=== PATIENT | male | born 1995 | race Caucasian/White ===

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

== ENCOUNTER 2017-02-06 16:20 | Emergency (ER) | payer OTHER ==
[2017-02-06 16:34] LABS: Glucose,Whole Blood 172 mg/dL (75-99)
[2017-02-06 16:36] VITALS: RESP 18
[2017-02-06] MEDS ORDERED: SODIUM CHLORIDE 0.9% 1,000 ML IV STA (17:01)
--- NOTE | 2017-02-06 17:06 | ED ---
Recheck HPI - General Chief Complaint: Recheck/Abnormal Lab/Rx Stated Complaint: Dizziness/Headache/Diabetic Time Seen by Provider: 02/06/17 16:55 Source: patient, RN notes reviewed Mode of arrival: ambulatory Limitations: no limitations - History of Present Illness Initial Comments: This is a 21-year-old insulin-dependent diabetic male who presents emergency department complaining of dizziness, lightheadedness, and jitteriness. Patient states that he also had some chest burning. Patient states he ate leftover prostate about 2:00 and then took his blood sugar and it was 249. He states he then started feeling dizzy and lightheaded. Patient states that he had a burning sensation in his chest. He denied any cough or fever. No current chest pain. Patient states he does feel jittery. Patient denies any skin rashes or lesions. No problems with bowel movements. Patient states he did have dark urine but is been urinating okay. No vomiting. No abdominal pain. Patient states that he has been having problems with DKA. He states he has admitted the hospital last month for DKA. 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 Patient states he takes Humalog, 6 units after each meal as well as Lantus. Patient states that he did take his Humalog 6 after lunch. - Related Data Home Medications Medication Instructions Recorded Confirmed INSULIN LISPRO (humaLOG) [humaLOG See Protocol SQ PC-TID 10/26/16 02/06/17 (formulary)] Previous Rx's Medication Instructions Recorded INSULIN LISPRO (humaLOG) [humaLOG 7 unit SQ AC-TID #1 10/28/16 (formulary)] Insulin Glargine [Lantus] 22 unit SQ HS #6 vial 10/28/16 Allergies Allergy/AdvReac Type Severity Reaction Status Date / Time No Known Allergies Allergy Verified 02/06/17 17:24 Review of Systems ROS Statement: Those systems with pertinent positive or pertinent negative responses have been documented in the HPI. ROS Other: All systems not noted in ROS Statement are negative. Past Medical History Past Medical History: Diabetes Mellitus Additional Past Medical History / Comment(s): Asthma outgrown by age 9, diabetes diagnosed 2.5 yrs ago October 2013;oral motor apraxia;. psoriasis, previous suicidal attempts (08/2014, 03/2015); anxiety/depression, previous hospital physicians for DKA, he may have also possibly an underlying diabetic gastroparesis. History of Any Multi-Drug Resistant Organisms: None Reported Past Surgical History: Adenoidectomy Additional Past Surgical History / Comment(s): 2002 Past Anesthesia/Blood Transfusion Reactions: No Reported Reaction Past Psychological History: Anxiety, Depression Smoking Status: Light tobacco smoker Past Alcohol Use History: None Reported Past Drug Use History: None Reported - Past Family History Mother Family Medical History: No Reported History Father Family Medical History: Hyperlipidemia, Hypertension Additional Family Medical History / Comment(s): . General Exam - General Exam Comments Initial Comments: This is a thin-appearing 21-year-old male who is in mild distress and appears to be mildly anxious. Limitations: no limitations General appearance: alert, anxious Head exam: Present: atraumatic, normocephalic, normal inspection Eye exam: Present: normal appearance, PERRL, EOMI. Absent: scleral icterus, conjunctival injection, periorbital swelling ENT exam: Present: normal exam, normal oropharynx, mucous membranes moist, TM's normal bilaterally, normal external ear exam, other (Moist mucous membranes) Neck exam: Present: normal inspection, full ROM. Absent: tenderness, meningismus, lymphadenopathy Respiratory exam: Present: normal lung sounds bilaterally. Absent: respiratory distress, wheezes, rales, rhonchi, stridor Cardiovascular Exam: Present: normal rhythm, tachycardia (108), normal heart sounds. Absent: systolic murmur, diastolic murmur, rubs, gallop, clicks GI/Abdominal exam: Present: soft, normal bowel sounds. Absent: distended, tenderness, guarding, rebound, rigid Extremities exam: Present: normal inspection, full ROM, normal capillary refill. Absent: tenderness, pedal edema, joint swelling, calf tenderness Back exam: Present: normal inspection Neurological exam: Present: alert, oriented X3, CN II-XII intact Psychiatric exam: Present: normal affect, normal mood Skin exam: Present: warm, dry, intact, normal color. Absent: rash Course Vital Signs 02/06/17 16:34 Temperature 98.1 F Pulse Rate 112 H Respiratory 18 Rate Blood Pressure 118/85 O2 Sat by Pulse 98 Oximetry - Reevaluation(s) Reevaluation #1: 02/06/17 18:26 Patient reevaluated, patient resting comfortably in bed. Patient no acute distress. Reevaluation #2: 02/06/17 18:57 Patient reevaluated and is resting comfortably in bed, no evidence of infectious process, no evidence of toxicity or significant illness Medical Decision Making - Medical Decision Making 21-year-old diabetic male who does not appear to be overtly ill. Patient does not appear to be toxic. Patient has moist mucous membranes. No abdominal tenderness. Bilateral breath sounds are normal. No evidence of infectious process. Blood sugar was 249 after lunch. Patient states she became lightheaded and jittery. Patient had some burning in his chest which has resolved. Return and follow-up parameters discussed. Patient told to return immediately if symptoms worsen. - Differential Diagnosis Patient's workup shows no evidence of diabetic ketoacidosis - Lab Data Result diagrams: 02/06/17 17:10 02/06/17 17:10 Lab Results 02/06/17 02/06/17 02/06/17 Range/Units 16:32 17:10 17:10 WBC (4.0-11.0) k/uL RBC (4.30-5.90) m/uL Hgb (13.0-17.5) gm/dL Hct (39.0-53.0) % MCV (80.0-100.0) fL MCH (25.0-35.0) pg MCHC (31.0-37.0) g/dL RDW (11.5-15.5) % Plt Count (150-450) k/uL Neutrophils % % Lymphocytes % % Monocytes % % Eosinophils % % Basophils % % Neutrophils # (1.3-7.7) k/uL Lymphocytes # (1.0-4.8) k/uL Monocytes # (0-1.0) k/uL Eosinophils # (0-0.7) k/uL Basophils # (0-0.2) k/uL Hyperchromasia VBG pH (7.31-7.41) VBG pCO2 (37-51) mmHg VBG HCO3 (24-28) mmol/L Sodium 136 L (137-145) mmol/L Potassium 3.5 (3.5-5.1) mmol/L Chloride 100 (98-107) mmol/L Carbon Dioxide 23 (22-30) mmol/L Anion Gap 13 mmol/L BUN 15 (9-20) mg/dL Creatinine 0.63 L (0.66-1.25) mg/dL Est GFR (MDRD) Af Amer >60 (>60 ml/min/1.73 sqM) Est GFR (MDRD) Non-Af >60 (>60 ml/min/1.73 sqM) Glucose 167 H (74-99) mg/dL POC Glucose (mg/dL) 172 H 162 H (75-99) mg/dL POC Glu Associate Research Scientist Luiz Anne Andrew Calcium 9.9 (8.4-10.2) mg/dL Total Bilirubin 0.7 (0.2-1.3) mg/dL AST 14 L (17-59) U/L ALT 24 (21-72) U/L Alkaline Phosphatase 81 (38-126) U/L Troponin I (0.000-0.034) ng/mL Total Protein 7.0 (6.3-8.2) g/dL Albumin 4.6 (3.5-5.0) g/dL Amylase 68 (30-110) U/L Lipase 281 (23-300) U/L Acetone, Qual Negative (Negative) 02/06/17 02/06/17 02/06/17 Range/Units 17:10 17:10 18:29 WBC 9.3 (4.0-11.0) k/uL RBC 4.91 (4.30-5.90) m/uL Hgb 16.4 (13.0-17.5) gm/dL Hct 44.8 (39.0-53.0) % MCV 91.2 (80.0-100.0) fL MCH 33.4 (25.0-35.0) pg MCHC 36.6 (31.0-37.0) g/dL RDW 12.7 (11.5-15.5) % Plt Count 364 (150-450) k/uL Neutrophils % 44 % Lymphocytes % 44 % Monocytes % 7 % Eosinophils % 1 % Basophils % 1 % Neutrophils # 4.1 (1.3-7.7) k/uL Lymphocytes # 4.1 (1.0-4.8) k/uL Monocytes # 0.7 (0-1.0) k/uL Eosinophils # 0.1 (0-0.7) k/uL Basophils # 0.1 (0-0.2) k/uL Hyperchromasia Slight VBG pH 7.36 (7.31-7.41) VBG pCO2 54 H (37-51) mmHg VBG HCO3 29 H (24-28) mmol/L Sodium (137-145) mmol/L Potassium (3.5-5.1) mmol/L Chloride (98-107) mmol/L Carbon Dioxide (22-30) mmol/L Anion Gap mmol/L BUN (9-20) mg/dL Creatinine (0.66-1.25) mg/dL Est GFR (MDRD) Af Amer (>60 ml/min/1.73 sqM) Est GFR (MDRD) Non-Af (>60 ml/min/1.73 sqM) Glucose (74-99) mg/dL POC Glucose (mg/dL) (75-99) mg/dL POC Glu Associate Research Scientist ID Calcium (8.4-10.2) mg/dL Total Bilirubin (0.2-1.3) mg/dL AST (17-59) U/L ALT (21-72) U/L Alkaline Phosphatase (38-126) U/L Troponin I <0.012 (0.000-0.034) ng/mL Total Protein (6.3-8.2) g/dL Albumin (3.5-5.0) g/dL Amylase (30-110) U/L Lipase (23-300) U/L Acetone, Qual (Negative) - EKG Data EKG shows normal: sinus rhythm, intervals, QRS complexes, ST-T waves Rate: normal (Right axis deviation) - Radiology Data Radiology results: report reviewed, image reviewed Negative for acute process Disposition Clinical Impression: Hyperglycemia, Anxiety Disposition: HOME SELF-CARE Condition: Good Instructions: Diabetic Hyperglycemia (ED), Anxiety (ED) Additional Instructions: Call tomorrow morning for follow-up appointment with your regular physician.Return to the ER at once if the symptoms worsen or problems or difficulties arise. Referrals: Wilver Vincent MD [Primary Care Provider] - 1-2 days Time of Disposition: 18:57
[2017-02-06 17:13] LABS: Glucose,Whole Blood 162 mg/dL (75-99)
[2017-02-06 17:31] LABS: Basophils # (A) 0.1 k/uL (0-0.2); Basophils % (A) 1 %; CH 34.6; Eosinophils # (A) 0.1 k/uL (0-0.7); Eosinophils % (A) 1 %; HCT 44.8 % (39.0-53.0); HDW 2.72; HGB 16.4 gm/dL (13.0-17.5); Hyperchromasia Slight; Luc # (Auto) 0.27; Luc % (Auto) 3; Lymphocytes # (A) 4.1 k/uL (1.0-4.8); Lymphocytes % (A) 44 %; MCH 33.4 pg (25.0-35.0); MCHC 36.6 g/dL (31.0-37.0); MCV 91.2 fL (80.0-100.0); Mean Platelet Volume 6.3; Monocytes # (A) 0.7 k/uL (0-1.0); Monocytes % (A) 7 %; Neutrophils # (A) 4.1 k/uL (1.3-7.7); Neutrophils % (A) 44 %; RBC 4.91 m/uL (4.30-5.90); RDW 12.7 % (11.5-15.5); WBC 9.3 k/uL (4.0-11.0); WBC (Perox) 9.05
[2017-02-06 17:41] LABS: ALT 24 U/L (21-72); AST 14 U/L (17-59); Alkaline Phosphatase 81 U/L (38-126); Amylase 68 U/L (30-110); Anion Gap 13 mmol/L; Blood Urea Nitrogen 15 mg/dL (9-20); Calcium 9.9 mg/dL (8.4-10.2); Carbon Dioxide 23 mmol/L (22-30); Chloride 100 mmol/L (98-107); Glucose 167 mg/dL (74-99); Non-African American GFR(MDRD) >60 (>60 ml/min/1.73 sqM); Potassium 3.5 mmol/L (3.5-5.1); Sodium 136 mmol/L (137-145); Total Bilirubin 0.7 mg/dL (0.2-1.3)
--- NOTE | 2017-02-06 18:16 | XR ---
EXAMINATION TYPE: XR chest 1V portable DATE OF EXAM: 02/06/2017 COMPARISON: 01/04/2017 HISTORY: Abdominal pain TECHNIQUE: Single frontal view of the chest is obtained. FINDINGS: Heart and mediastinum are normal. Lungs are clear. Diaphragm is normal. Bony thorax appear s normal. IMPRESSION: Normal chest. No change.
[2017-02-06 18:45] LABS: VBG PH 7.36 (7.31-7.41)
[2017-02-06 18:54] LABS: Amorphous Sediment,Urine Moderate /hpf; Appearance,Urine Turbid (Clear); Bilirubin,Urine Negative (Negative); Glucose,Urine (UA) 4+ (Negative); Ketones,Urine Negative (Negative); Leukocyte Esterase,Urine Negative (Negative); Nitrite,Urine Negative (Negative); PH, Urine 7.5 (5.0-8.0); Particle Count 8558; Protein,Urine Trace (Negative); UA Billing (MACRO vs. MICRO) MICRO; Urobilinogen,Urine <2.0 mg/dL (<2.0)
[2017-02-06 19:11] VITALS: BP 117/77; PULSE 76; TEMP 98.4
== END 2017-02-06 19:11 | disposition home or self-care (01) ==
LOC: EC 16:20
DX: E11.65 Type 2 diabetes mellitus with hyperglycemia (principal); F41.9 Anxiety disorder, unspecified; R42 Dizziness and giddiness; F17.200 Nicotine dependence, unspecified, uncomplicated; Z79.4 Long term (current) use of insulin
CPT/HCPCS: 36415; 71010; 80053; 81001; 82009; 82150; 82803; 83690; 84484; 85025; 93005; 96360; 99284

== ENCOUNTER 2017-03-11 14:15 | Inpatient (IN) | payer OTHER ==
[2017-03-11] MEDS ORDERED: SODIUM CHLORIDE 0.9% 2,000 ML IV STA (14:42)
--- NOTE | 2017-03-11 14:44 | ED ---
General Adult HPI - General Chief complaint: Psychiatric Symptoms Stated complaint: mental health Time Seen by Provider: 03/11/17 14:29 Source: patient Mode of arrival: ambulatory Limitations: no limitations - History of Present Illness Initial comments: There is a 21-year-old insulin-dependent type 1 diabetic male who presents to the emergency department for evaluation of suicidal thoughts. Reports over the past couple weeks is been having thoughts of suicide, he denies any specific plan. He states that he felt that he should come to the hospital reevaluated for his suicidal thoughts before he began developing homicidal thoughts. Arrival was noted that Raul was very tachycardic, I asked him if he has been compliant with his insulin. States that he has not been eating much so he has not been taking his in sling. He does report taking his nighttime long-acting insulin. He has not been checking his blood glucose or covered himself with a sliding scale of insulin. Raul reports that he was last in DKA approximately 2 months ago. - Related Data Home Medications Medication Instructions Recorded Confirmed INSULIN LISPRO (humaLOG) [humaLOG See Protocol SQ PC-TID 10/26/16 03/11/17 (formulary)] Previous Rx's Medication Instructions Recorded Insulin Glargine [Lantus] 22 unit SQ HS #6 vial 10/28/16 Allergies Allergy/AdvReac Type Severity Reaction Status Date / Time No Known Allergies Allergy Verified 03/11/17 14:46 Review of Systems ROS Statement: Those systems with pertinent positive or pertinent negative responses have been documented in the HPI. ROS Other: All systems not noted in ROS Statement are negative. Constitutional: Denies: fever, chills Eyes: Denies: vision change ENT: Denies: throat pain Respiratory: Denies: cough, dyspnea Cardiovascular: Reports: palpitations. Denies: chest pain Endocrine: Reports: polyuria Gastrointestinal: Denies: abdominal pain, nausea, vomiting Genitourinary: Denies: urgency, dysuria Musculoskeletal: Denies: back pain Skin: Denies: rash, lesions Neurological: Denies: headache, weakness Psychiatric: Reports: depression, suicidal thoughts Hematological/Lymphatic: Denies: easy bleeding, easy bruising Past Medical History Past Medical History: Diabetes Mellitus Additional Past Medical History / Comment(s): Asthma outgrown by age 9, diabetes diagnosed 2.5 yrs ago October 2013;oral motor apraxia;. psoriasis, previous suicidal attempts (08/2014, 03/2015); anxiety/depression, previous hospital physicians for DKA, he may have also possibly an underlying diabetic gastroparesis. History of Any Multi-Drug Resistant Organisms: None Reported Past Surgical History: Adenoidectomy Additional Past Surgical History / Comment(s): 2002 Past Anesthesia/Blood Transfusion Reactions: No Reported Reaction Past Psychological History: Anxiety, Depression Smoking Status: Current some day smoker Past Alcohol Use History: None Reported Past Drug Use History: None Reported - Past Family History Mother Family Medical History: No Reported History Father Family Medical History: Hyperlipidemia, Hypertension Additional Family Medical History / Comment(s): . General Exam Limitations: no limitations General appearance: alert, in no apparent distress Head exam: Present: atraumatic, normocephalic Eye exam: Present: normal appearance, PERRL ENT exam: Present: mucous membranes dry Neck exam: Present: normal inspection. Absent: meningismus Respiratory exam: Present: normal lung sounds bilaterally. Absent: respiratory distress Cardiovascular Exam: Present: regular rate, tachycardia GI/Abdominal exam: Present: soft. Absent: distended Rectal exam: Present: deferred Extremities exam: Present: normal inspection Back exam: Present: normal inspection Neurological exam: Present: alert, oriented X3 Psychiatric exam: Present: depressed, suicidal ideation Skin exam: Present: warm, dry Course Vital Signs 03/11/17 03/11/17 03/11/17 14:24 14:56 15:28 Temperature 97.0 F L 97.3 F L Pulse Rate 127 H 86 Respiratory 18 16 16 Rate Blood Pressure 140/92 134/87 O2 Sat by Pulse 99 100 Oximetry - Reevaluation(s) Reevaluation #1: Patient was updated that he is in DKA and will be admitted, continues to rest comfortably in bed 03/11/17 15:25 Medical Decision Making - Medical Decision Making Patient was seen and evaluated, history was obtained from patient and review of medical records Vital signs reveal tachycardia Patient states that he is suicidal, reports that he has not been taking any short acting insulin, has not been checking his blood glucose considering that he has a history of recurrent episodes of DKA due to noncompliance and is per family tachycardic and appears dehydrated I have concern for DKA POC glucose was too high for the metered to read DKA workup was ordered, 2 L IV fluid hydration was ordered Second consistent with DKA with an anion gap of 25, a low bicarb of 18, a glucose of greater than 600 and acetone present in the blood Potassium is greater than 4 Insulin drip was ordered This point the patient cannot be medically cleared for psychiatric evaluation, he will be admitted under the medicine service with a consult to psychiatry Vision care was discussed with patient's primary care physician Dr. Vincent who accepts the admission for DKA due to insulin noncompliance with a consult to psych Admission orders placed - Lab Data Result diagrams: 03/11/17 14:45 03/11/17 14:45 Lab Results 03/11/17 03/11/17 03/11/17 Range/Units 14:39 14:45 14:45 WBC 8.0 (4.0-11.0) k/uL RBC 5.65 (4.30-5.90) m/uL Hgb 18.3 H (13.0-17.5) gm/dL Hct 53.3 H (39.0-53.0) % MCV 94.5 (80.0-100.0) fL MCH 32.5 (25.0-35.0) pg MCHC 34.4 (31.0-37.0) g/dL RDW 12.0 (11.5-15.5) % Plt Count 337 (150-450) k/uL Neutrophils % 62 % Lymphocytes % 29 % Monocytes % 5 % Eosinophils % 1 % Basophils % 1 % Neutrophils # 5.0 (1.3-7.7) k/uL Lymphocytes # 2.3 (1.0-4.8) k/uL Monocytes # 0.4 (0-1.0) k/uL Eosinophils # 0.1 (0-0.7) k/uL Basophils # 0.1 (0-0.2) k/uL Sodium 130 L (137-145) mmol/L Potassium 4.4 (3.5-5.1) mmol/L Chloride 87 L (98-107) mmol/L Carbon Dioxide 18 L (22-30) mmol/L Anion Gap 25 mmol/L BUN 11 (9-20) mg/dL Creatinine 0.67 (0.66-1.25) mg/dL Est GFR (MDRD) Af Amer >60 (>60 ml/min/1.73 sqM) Est GFR (MDRD) Non-Af >60 (>60 ml/min/1.73 sqM) Glucose 621 H* (74-99) mg/dL POC Glucose (mg/dL) >600 H (75-99) mg/dL POC Glu Invasive Cardiologist ID Jael Lema Plasma Lactic Acid Len (0.7-2.0) mmol/L Calcium 9.6 (8.4-10.2) mg/dL Total Bilirubin 1.1 (0.2-1.3) mg/dL AST 18 (17-59) U/L ALT 21 (21-72) U/L Alkaline Phosphatase 101 (38-126) U/L Total Protein 7.7 (6.3-8.2) g/dL Albumin 5.0 (3.5-5.0) g/dL Acetone, Qual Positive (Negative) 03/11/17 Range/Units 14:50 WBC (4.0-11.0) k/uL RBC (4.30-5.90) m/uL Hgb (13.0-17.5) gm/dL Hct (39.0-53.0) % MCV (80.0-100.0) fL MCH (25.0-35.0) pg MCHC (31.0-37.0) g/dL RDW (11.5-15.5) % Plt Count (150-450) k/uL Neutrophils % % Lymphocytes % % Monocytes % % Eosinophils % % Basophils % % Neutrophils # (1.3-7.7) k/uL Lymphocytes # (1.0-4.8) k/uL Monocytes # (0-1.0) k/uL Eosinophils # (0-0.7) k/uL Basophils # (0-0.2) k/uL Sodium (137-145) mmol/L Potassium (3.5-5.1) mmol/L Chloride (98-107) mmol/L Carbon Dioxide (22-30) mmol/L Anion Gap mmol/L BUN (9-20) mg/dL Creatinine (0.66-1.25) mg/dL Est GFR (MDRD) Af Amer (>60 ml/min/1.73 sqM) Est GFR (MDRD) Non-Af (>60 ml/min/1.73 sqM) Glucose (74-99) mg/dL POC Glucose (mg/dL) (75-99) mg/dL POC Glu Invasive Cardiologist ID Plasma Lactic Acid Len 1.8 (0.7-2.0) mmol/L Calcium (8.4-10.2) mg/dL Total Bilirubin (0.2-1.3) mg/dL AST (17-59) U/L ALT (21-72) U/L Alkaline Phosphatase (38-126) U/L Total Protein (6.3-8.2) g/dL Albumin (3.5-5.0) g/dL Acetone, Qual (Negative) Disposition Clinical Impression: DKA (diabetic ketoacidoses) Disposition: [facility] Condition: Poor Referrals: Wilver Vincent MD [Primary Care Provider] - 1-2 days Decision Time: 15:45
[2017-03-11 14:54] LABS: Basophils # (A) 0.1 k/uL (0-0.2); Basophils % (A) 1 %; CH 34.1; CHCM 36.2; Eosinophils # (A) 0.1 k/uL (0-0.7); Eosinophils % (A) 1 %; HCT 53.3 % (39.0-53.0); HGB 18.3 gm/dL (13.0-17.5); Luc # (Auto) 0.18; Luc % (Auto) 2; Lymphocytes # (A) 2.3 k/uL (1.0-4.8); Lymphocytes % (A) 29 %; MCH 32.5 pg (25.0-35.0); MCHC 34.4 g/dL (31.0-37.0); MCV 94.5 fL (80.0-100.0); Mean Platelet Volume 6.6; Monocytes # (A) 0.4 k/uL (0-1.0); Monocytes % (A) 5 %; Neutrophils % (A) 62 %; RBC 5.65 m/uL (4.30-5.90); WBC (Perox) 7.62
[2017-03-11 14:55] LABS: Glucose,Whole Blood >600 mg/dL (75-99)
[2017-03-11 15:08] LABS: ALT 21 U/L (21-72); AST 18 U/L (17-59); Alkaline Phosphatase 101 U/L (38-126); Anion Gap 25 mmol/L; Blood Urea Nitrogen 11 mg/dL (9-20); Calcium 9.6 mg/dL (8.4-10.2); Carbon Dioxide 18 mmol/L (22-30); Chloride 87 mmol/L (98-107); Non-African American GFR(MDRD) >60 (>60 ml/min/1.73 sqM); Potassium 4.4 mmol/L (3.5-5.1); Sodium 130 mmol/L (137-145); Total Bilirubin 1.1 mg/dL (0.2-1.3); Total Protein 7.7 g/dL (6.3-8.2)
[2017-03-11 15:18] LABS: Glucose 621 mg/dL (74-99)
[2017-03-11 16:25] LABS: Glucose,Whole Blood 487 mg/dL (75-99)
[2017-03-11 16:27] LABS: Appearance,Urine Clear (Clear); Bilirubin,Urine Negative (Negative); Glucose,Urine (UA) 4+ (Negative); Leukocyte Esterase,Urine Negative (Negative); Nitrite,Urine Negative (Negative); Protein,Urine Negative (Negative); Specific Gravity,Urine 1.026 (1.001-1.035); UA Billing (MACRO vs. MICRO) CHEM; Urobilinogen,Urine <2.0 mg/dL (<2.0)
[2017-03-11 16:37] LABS: Ketones,Urine 4+ (Negative)
[2017-03-11] MEDS: INSULIN REGULAR 100 UNIT in SODIUM CHLORIDE 0.9% 100 ML IV ONE ×2 (16:37→18:02)
[2017-03-11 17:27] LABS: Glucose,Whole Blood 382 mg/dL (75-99)
[2017-03-11] MEDS: SODIUM CHLORIDE 0.9% 1,000 ML IV SCH ×2 (18:04→23:38)
[2017-03-11 18:11] LABS: Glucose,Whole Blood 262 mg/dL (75-99)
[2017-03-11 19:02] LABS: Glucose,Whole Blood 197 mg/dL (75-99)
[2017-03-11 19:45] LABS: Anion Gap 13 mmol/L; Blood Urea Nitrogen 8 mg/dL (9-20); Carbon Dioxide 22 mmol/L (22-30); Chloride 97 mmol/L (98-107); Glucose 159 mg/dL (74-99); Non-African American GFR(MDRD) >60 (>60 ml/min/1.73 sqM); Phosphorus 2.4 mg/dL (2.5-4.5); Potassium 3.2 mmol/L (3.5-5.1); Sodium 132 mmol/L (137-145)
[2017-03-11 20:02] LABS: Glucose,Whole Blood 134 mg/dL (75-99)
[2017-03-11] MEDS: D5-0.45% NACL WITH KCL 20MEQ/L 1,000 ML IV SCH (20:12)
[2017-03-11 21:09] LABS: Glucose,Whole Blood 144 mg/dL (75-99)
[2017-03-11 22:10] LABS: Glucose,Whole Blood 149 mg/dL (75-99)
[2017-03-11 22:57] LABS: VBG PH 7.39 (7.31-7.41)
[2017-03-11 23:06] LABS: Blood Urea Nitrogen 7 mg/dL (9-20); Carbon Dioxide 25 mmol/L (22-30); Glucose 147 mg/dL (74-99); Non-African American GFR(MDRD) >60 (>60 ml/min/1.73 sqM); Phosphorus 3.2 mg/dL (2.5-4.5); Potassium 3.3 mmol/L (3.5-5.1); Sodium 130 mmol/L (137-145)
[2017-03-11 23:07] LABS: Anion Gap 10 mmol/L; Chloride 95 mmol/L (98-107)
[2017-03-11 23:13] LABS: Glucose,Whole Blood 165 mg/dL (75-99)
[2017-03-12 00:08] LABS: Glucose,Whole Blood 171 mg/dL (75-99)
[2017-03-12 01:22] LABS: Glucose,Whole Blood 206 mg/dL (75-99)
[2017-03-12] MEDS: SODIUM CHLORIDE 0.9% 1,000 ML IV SCH ×5 (02:15→22:39)
[2017-03-12 02:39] LABS: Glucose,Whole Blood 215 mg/dL (75-99)
[2017-03-12 04:44] LABS: Glucose,Whole Blood 209 mg/dL (75-99)
[2017-03-12 04:44] LABS: Glucose,Whole Blood 203 mg/dL (75-99)
[2017-03-12 05:21] LABS: Glucose,Whole Blood 171 mg/dL (75-99)
[2017-03-12 06:12] LABS: Glucose,Whole Blood 193 mg/dL (75-99)
[2017-03-12] MEDS ORDERED: Potassium Replacement Protocol 1 EACH MISC MISCELLANE PRN (06:13)
[2017-03-12 06:59] LABS: Glucose,Whole Blood 163 mg/dL (75-99)
[2017-03-12] MEDS: D5-0.45% NACL WITH KCL 20MEQ/L 1,000 ML IV SCH ×4 (07:05→22:39)
[2017-03-12] MEDS: POTASSIUM CHLORIDE 10 MEQ, LIDOCAINE 2% INJ 10 MG in SODIUM CHLORIDE 0.9% 100 ML IV SCH ×2 (08:04→10:30)
[2017-03-12] MEDS: INSULIN REGULAR 100 UNIT in SODIUM CHLORIDE 0.9% 100 ML IV ONE (08:13)
[2017-03-12 08:14] LABS: Glucose,Whole Blood 293 mg/dL (75-99)
--- NOTE | 2017-03-12 09:01 | HP ---
HISTORY AND PHYSICAL CHIEF COMPLAINT: A 21-year-old with type 1 diabetes mellitus has been having suicidal thoughts over the past few days at which time he is brought to the hospital as he has not taken any short-acting insulin, he has type 1 diabetes, for multiple days because he just does not feel like eating so he stopped taking his insulin. He was found to have a sugar level in 600s and suicidal on admission. He has got a sitter at the bedside. Await psychiatric consult. He is on DKA protocol at this time. He is complaining of no abdominal pain, no recent viral infections, etc. HOME MEDICATIONS: Just taking Lantus, but no fast acting sugar. REVIEW OF SYSTEMS: Fourteen-point review of systems: GI: Anorexia and not eating. Essentially normal for 14-point review of systems. PAST MEDICAL HISTORY: Type 1 diabetes mellitus, asthma at age 9, motor apraxia, psoriasis, prior suicide attempt in 2015 twice, anxiety, depression, multiple admissions for DKA. SURGICAL HISTORY: Appendectomy. Anxiety, depression. Current everyday smoker. No alcohol. No illicit drugs. PHYSICAL EXAMINATION: Temp 97, pulse 86 to 127, respiratory 16 to 18, blood pressure 130 to 140s over 80s to 90s, O2 99% to 100% on room air. Normocephalic, atraumatic. Pupils equal, round, react to light and accommodation. Thin, cachectic, low BMI. CARDIOVASCULAR: S1, S2. GI: Soft, nontender. HEMATOLOGIC: Negative Homans. PSYCH: Fair mood and affect, NEUROLOGIC: Alert and oriented x3. ASSESSMENT: 1. Acute diabetic ketoacidosis. 2. Suicidal ideations. Await consult by Psychiatry. Continue on DKA protocol. When gap is closed, will send him to psychiatric unit where he needs to be as he is suicidal at this time. Continue with bedside sitter. He has secondary polycythemia secondary to smoking, hyponatremia, thrombocytosis probably secondary to dehydration. We will monitor him closely. Date of H&P 03/11/2017. MMODL / IJN: [id number] /
[2017-03-12 09:10] LABS: Glucose,Whole Blood 401 mg/dL (75-99)
[2017-03-12 10:05] LABS: Glucose,Whole Blood 301 mg/dL (75-99)
[2017-03-12] MEDS ORDERED: INSULIN REGULAR 100 UNIT in SODIUM CHLORIDE 0.9% 100 ML IV SCH (10:07)
[2017-03-12 11:04] LABS: Glucose,Whole Blood 236 mg/dL (75-99)
[2017-03-12 11:58] LABS: Hemoglobin A1C 14.8 %
[2017-03-12 12:09] LABS: Glucose,Whole Blood 167 mg/dL (75-99)
[2017-03-12 12:16] LABS: Anion Gap 7 mmol/L; Blood Urea Nitrogen 4 mg/dL (9-20); Calcium 8.7 mg/dL (8.4-10.2); Carbon Dioxide 29 mmol/L (22-30); Chloride 97 mmol/L (98-107); Glucose 155 mg/dL (74-99); Non-African American GFR(MDRD) >60 (>60 ml/min/1.73 sqM); Potassium 3.6 mmol/L (3.5-5.1); Sodium 133 mmol/L (137-145)
[2017-03-12 13:19] VITALS: BMI 16.1
[2017-03-12 13:19] LABS: Glucose,Whole Blood 189 mg/dL (75-99)
[2017-03-12 13:59] LABS: Glucose,Whole Blood 295 mg/dL (75-99)
[2017-03-12 15:12] LABS: Glucose,Whole Blood 242 mg/dL (75-99)
[2017-03-12] MEDS: INSULIN GLARGINE 100 UNIT/ML 10 ML VIAL SQ SCH (15:54)
[2017-03-12] MEDS: INSULIN LISPRO (humaLOG) 300 UNIT/3 ML VIAL SQ SCH ×2 (15:57→21:03)
[2017-03-12 16:11] LABS: Glucose,Whole Blood 171 mg/dL (75-99)
--- NOTE | 2017-03-12 17:36 | P.CN ---
Psychiatric Consult - . Consult date: 03/12/17 Consult:: 03/12/17 17:19 IDENTIFYING DATA: Pt is a 21yo CM who is essentially homeless at this time. Psychiatry consulted due to reported suicidal ideations. HPI: Upon evalution this afternoon, pt states that he has been dealing with intermittent depression since ~13yo and that he feels it has progressively worsened over the past year. Reports current stressors related to being unemployed and homeless. States that he has been staying with various friends but no stable housing. He reports accompanying depressive symptoms as follows: difficulty staying asleep, decreased appetite, feelings of hopelessness and worthlessness, anhedonia. He also continues to have suicidal ideations that he states began a couple of days ago. He reports thoughts of overdosing on his insulin, cutting his wrists or overdosing on pills. Pt denies HI and auditory hallucinations. Reports that he does see shadows in his peripheral vision at times. PAST PSYCHIATRIC HISTORY: Previous hospitalization at [facility] following a suicide attempt by overdosing on insulin. Also, admitted to [facility] in June 2016 and treated with Prozac 20mg, Abilify 5mg and Trazodone 75mg. However, pt did not remain compliant with medications upon discharge and did not f/u with outpatient psychiatric services. PMH: Diabetes Mellitus type I (diagnosed in October 2013), Psoriasis, Oral motor apraxia, Childhood Asthma ALLERGIES: NKDA MEDICATIONS: Active Medications Potassium Chloride/Dextrose/Sod Cl (D5%-1/2ns-Kcl 20 Meq/L Iv Solution) 1,000 mls @ 150 mls/hr IV .Q6H40M [facility] Last Admin: 03/12/17 16:00 Dose: Not Given Sodium Chloride (Saline 0.9%) 1,000 mls @ 200 mls/hr IV .Q5H [facility] Last Admin: 03/12/17 16:01 Dose: Not Given Insulin Glargine (Lantus) 22 unit SQ Q24H [facility] Last Admin: 03/12/17 15:54 Dose: 22 unit Insulin Human Lispro (Humalog) 0 unit SQ ACHS YAEL PRN Reason: Protocol Last Admin: 03/12/17 15:57 Dose: 2 unit Miscellaneous Information (Potassium Per Protocol) 1 each MISCELLANE DAILY PRN ; Protocol PRN Reason: Per Protocol CHEMICAL DEPENDENCY HISTORY: denies use of alcohol. States that he smokes MJ once weekly, mainly to help him sleep. FAMILY PSYCHIATRIC HISTORY: none SOCIAL HISTORY: pt reports that he grew up in [place] with both parents, 2 older brothers and 1 younger sister. Describes his childhood as "rough" as he felt his parents were not there for him emotionally. Dropped out of high school in the 11th grade. Denies any h/o abuse. Denies any significant legal issues. Never and no children. Has a poor relationship with his parents and siblings. Mainly depending on his friends for support. MENTAL STATUS EXAM: Pt is a 21yo male who appears stated age and fairly well- groomed. Speech is spontaneous with normal rate, rhythm and volume. Mood is depressed and affect is restricted. Continues to report suicidal ideations with plan. Denies HI and AH. Reports that he occasionally sees shadows. Oriented x 3. Memory grossly intact. Judgment and insight is fair. STRENGTHS/WEAKNESSES: desire to get treatment/non-compliance, poor support system INTELLECTUAL FUNCTIONING: average ASSESSMENT: 1. Major Depressive Disorder, recurrent, moderate 2. Cannabis use disorder PLAN: Patient continues to report suicidal ideations. Would recommend continuing 1:1 observation while on the medical floor. Once medically stable, patient would benefit from transfer to MHU for further psychiatric stabilization. Recommend starting patient on Prozac 20mg daily at this time to start treating depressed mood. Will continue to follow. 03/12/17 17:25 03/12/17 17:28
[2017-03-12] MEDS ORDERED: INSULIN GLARGINE 100 UNIT/ML 10 ML VIAL SQ SCH (21:00)
[2017-03-12 21:04] LABS: Glucose,Whole Blood 297 mg/dL (75-99)
--- NOTE | 2017-03-12 23:25 | PN ---
PROGRESS NOTE SUBJECTIVE: This is a 21-year-old with diabetic ketoacidosis with anion gap closed. We are going to place him back on Accu-Chek protocol with regular insulin and his long-acting Lantus 22 units a day. Dietitian discussion with the patient occurred today as well as a psychiatric consult was undertaken to see if he would possibly transfer to a psychiatric [facility] for suicidal ideations, which patient currently has. This is probably the cause of him not being compliant with diabetes mellitus because he gets depressed and stops eating and drinking and taking medications for multiple admissions. He has not had any psychiatric inpatient counseling by a psychiatrist and workup for mental health disease. VITAL SIGNS: Stable. CARDIOVASCULAR: S1, S2. LUNGS: Clear. Electrolytes are within normal limits. Creatinine is within normal limits. Please see further orders. MMODL / IJN: [id number] /
[2017-03-13 06:13] LABS: Glucose,Whole Blood 264 mg/dL (75-99)
[2017-03-13] MEDS: INSULIN LISPRO (humaLOG) 300 UNIT/3 ML VIAL SQ SCH ×4 (06:42→21:59)
[2017-03-13 06:45] LABS: Basophils % (A) 1 %; CH 33.9; CHCM 37.3; Eosinophils # (A) 0.1 k/uL (0-0.7); Eosinophils % (A) 2 %; HCT 50.3 % (39.0-53.0); HDW 2.73; HGB 17.5 gm/dL (13.0-17.5); Luc # (Auto) 0.13; Luc % (Auto) 2; Lymphocytes % (A) 45 %; MCH 31.7 pg (25.0-35.0); MCHC 34.7 g/dL (31.0-37.0); MCV 91.3 fL (80.0-100.0); Mean Platelet Volume 6.2; Monocytes # (A) 0.4 k/uL (0-1.0); Monocytes % (A) 6 %; Neutrophils # (A) 2.9 k/uL (1.3-7.7); Neutrophils % (A) 44 %; RBC 5.51 m/uL (4.30-5.90); RDW 11.8 % (11.5-15.5); WBC 6.7 k/uL (4.0-11.0); WBC (Perox) 6.57
[2017-03-13 07:22] LABS: ALT 24 U/L (21-72); AST 14 U/L (17-59); Alkaline Phosphatase 63 U/L (38-126); Anion Gap 12 mmol/L; Blood Urea Nitrogen 7 mg/dL (9-20); Calcium 9.1 mg/dL (8.4-10.2); Carbon Dioxide 29 mmol/L (22-30); Chloride 94 mmol/L (98-107); Glucose 272 mg/dL (74-99); Non-African American GFR(MDRD) >60 (>60 ml/min/1.73 sqM); Potassium 3.8 mmol/L (3.5-5.1); Sodium 135 mmol/L (137-145); Total Bilirubin 0.6 mg/dL (0.2-1.3)
[2017-03-13 11:43] LABS: Glucose,Whole Blood 270 mg/dL (75-99)
--- NOTE | 2017-03-13 15:03 | P.PN ---
Progress Note - Text Progress Note Date: 03/13/17 21yo CM admitted on 03/11/17 for treatment of DKA. Psychiatry consulted due to patient expressing suicidal ideations. Last 24hrs: Patient seen on medical unit. He is laying in bed with sitter present. States that his mood is still "down" and continues to have suicidal thoughts. MSE: Pt is a 21yo male who appears stated age and fairly well-groomed. Speech is spontaneous with normal rate, rhythm and volume. Mood is depressed and affect is restricted. Continues to report suicidal ideations with plan. Denies HI and AH. Reports that he occasionally sees shadows. Oriented x 3. Memory grossly intact. Judgment and insight is fair. ASSESSMENT: 1. Major Depressive Disorder, recurrent, moderate 2. Cannabis use disorder PLAN: Patient continues to report suicidal ideations. Would recommend continuing 1:1 observation while on the medical floor. Once medically stable, patient would benefit from transfer to [facility]HU for further psychiatric stabilization. Recommend starting patient on Prozac 20mg daily at this time to start treating depressed mood. Will continue to follow.
[2017-03-13] MEDS: INSULIN GLARGINE 100 UNIT/ML 10 ML VIAL SQ SCH (15:46)
[2017-03-13 16:44] LABS: Glucose,Whole Blood 430 mg/dL (75-99)
[2017-03-13 19:43] LABS: Magnesium 1.8 mg/dL (1.6-2.3); Potassium 3.9 mmol/L (3.5-5.1)
[2017-03-13 21:28] LABS: Glucose,Whole Blood 318 mg/dL (75-99)
--- NOTE | 2017-03-13 23:26 | DS ---
DISCHARGE SUMMARY [id number] white male with bipolar disorder and suicidal ideations. He has been cleared from a DKA standpoint, from medical standpoint. He is back on his Levemir and short-acting insulin. With compliance, no evidence of any infection was found. He had DKA secondary to noncompliance. He has suicidal ideations. He is cleared medically to be discharged to the [facility], which needs to be done as soon as possible. Continue with the sitter until he goes. GRACE / TRAMN: [id number] /
[2017-03-14 06:19] LABS: Glucose,Whole Blood 250 mg/dL (75-99)
[2017-03-14] MEDS: INSULIN LISPRO (humaLOG) 300 UNIT/3 ML VIAL SQ SCH (06:52)
[2017-03-14 08:51] VITALS: BP 125/78; PULSE 106; RESP 16; TEMP 97.3
[2017-03-14] MEDS ORDERED: INSULIN GLARGINE 100 UNIT/ML 10 ML VIAL SQ SCH (09:30)
--- NOTE | 2017-03-14 10:53 | P.PN ---
Subjective Progress Note Date: 03/14/17 Principal diagnosis: DKA, suicidal ideations patient seen and examined during for Dr. Vincent. Patient states his blood sugars are still elevated. This is reviewed. The patient's insulin will be increased. He is to be discharged to inpatient psych today. He has no other complaints or needs at this time. Objective - Vital Signs Vital signs: Vital Signs Temp 97.3 F L 03/14/17 08:00 Pulse 106 H 03/14/17 08:00 Resp 16 03/14/17 08:00 BP 125/78 03/14/17 08:00 Pulse Ox 97 03/14/17 08:00 Intake & Output 03/13/17 03/14/17 03/14/17 18:59 06:59 18:59 Intake Total 970 900 Balance 970 900 Weight 58.3 kg Intake: Oral 970 900 Other: Voiding Method Toilet # Voids 2 1 1 # Bowel Movements 1 - Exam Gen.: Patient is alert and oriented 3, no acute distress Cardiovascular: Regular rate and rhythm, S1/S2 Lungs: Clear to auscultation bilaterally no wheezes rales or rhonchi Abdomen: Soft nontender nondistended positive bowel sounds Extremities: No edema - Labs CBC & Chem 7: 03/13/17 06:07 03/13/17 18:57 Labs: Abnormal Lab Results - Last 24 Hours (Table) 03/13/17 03/13/17 03/13/17 Range/Units 11:39 16:37 21:27 POC Glucose (mg/dL) 270 H 430 H 318 H (75-99) mg/dL 03/14/17 Range/Units 06:16 POC Glucose (mg/dL) 250 H (75-99) mg/dL Assessment and Plan Plan: DKA present on admission medical Noncompliance type 1 diabetes Major depressive disorder Suicidal ideations Cannabis use anion gap metabolic acidosis, now resolved increase Lantus to 26 units daily Continue sliding scale insulin Monitor blood sugars Continue patient's home medications Discharge to inpatient psychiatric facility today
== END 2017-03-14 11:31 | DRG 638 ==
LOC: EC 14:15 → 6SEL 15:40
PROVIDERS: ADMIT Family Medicine; ATTEND Family Medicine
DX: E10.10 Type 1 diabetes mellitus with ketoacidosis without coma (principal); E87.1 Hypo-osmolality and hyponatremia; R45.851 Suicidal ideations; F33.1 Major depressive disorder, recurrent, moderate; D75.1 Secondary polycythemia; E86.0 Dehydration; T38.3X6A Underdosing of insulin and oral hypoglycemic [antidiabetic] drugs, initial encounter; D47.3 Essential (hemorrhagic) thrombocythemia; R48.2 Apraxia; L40.9 Psoriasis, unspecified; F12.10 Cannabis abuse, uncomplicated; F17.200 Nicotine dependence, unspecified, uncomplicated; F41.9 Anxiety disorder, unspecified; Z82.49 Family history of ischemic heart disease and other diseases of the circulatory system; Z91.14 Patient's other noncompliance with medication regimen; Z79.4 Long term (current) use of insulin; Z91.138 Patient's unintentional underdosing of medication regimen for other reason; Z91.19 Patient's noncompliance with other medical treatment and regimen; Z59.0 Homelessness; Z56.0 Unemployment, unspecified; Z91.5 Personal history of self-harm; Y92.009 Unspecified place in unspecified non-institutional (private) residence as the place of occurrence of the external cause
CPT/HCPCS: 36415; 80048; 80051; 80053; 80306; 81003; 82009; 82075; 82565; 82803; 82947; 83036; 83605; 83735; 84100; 84132; 84520; 85025; 96360; 99285

== ENCOUNTER 2017-07-27 15:29 | Inpatient (IN) | payer OTHER ==
[2017-07-27 16:04] LABS: Glucose,Whole Blood 328 mg/dL (75-99)
[2017-07-27] MEDS ORDERED: INSULIN REGULAR BOLUS (FROM DRIP BAG) IV ONE (16:32)
[2017-07-27] MEDS ORDERED: INSULIN REGULAR 100 UNIT/ML VIAL IV ONE (16:39)
[2017-07-27 16:50] LABS: Basophils # (A) 0.1 k/uL (0-0.2); Basophils % (A) 1 %; Eosinophils % (A) 0 %; HGB 19.5 gm/dL (13.0-17.5); Lymphocytes # (A) 2.9 k/uL (1.0-4.8); Lymphocytes % (A) 27 %; MCH 31.3 pg (25.0-35.0); MCHC 34.3 g/dL (31.0-37.0); MCV 91.2 fL (80.0-100.0); Mean Platelet Volume 6.7; Monocytes # (A) 0.4 k/uL (0-1.0); Monocytes % (A) 4 %; Neutrophils # (A) 7.3 k/uL (1.3-7.7); Neutrophils % (A) 67 %; Platelet Count 468 k/uL (150-450); RBC 6.22 m/uL (4.30-5.90); RDW 12.2 % (11.5-15.5); WBC 10.8 k/uL (4.0-11.0)
[2017-07-27 16:52] LABS: HCT 56.7 % (39.0-53.0)
[2017-07-27] MEDS: SODIUM CHLORIDE 0.9% 500 ML IV SCH ×5 (16:53→19:28)
[2017-07-27 16:56] LABS: ALT 19 U/L (21-72); AST 12 U/L (17-59); Alkaline Phosphatase 75 U/L (38-126); Anion Gap 30 mmol/L; Blood Urea Nitrogen 19 mg/dL (9-20); Calcium 10.1 mg/dL (8.4-10.2); Chloride 98 mmol/L (98-107); Glucose 341 mg/dL (74-99); Potassium 4.9 mmol/L (3.5-5.1); Sodium 136 mmol/L (137-145); Total Bilirubin 0.8 mg/dL (0.2-1.3); Total Protein 7.9 g/dL (6.3-8.2)
[2017-07-27 17:05] LABS: Carbon Dioxide 8 mmol/L (22-30)
[2017-07-27] MEDS ORDERED: ONDANSETRON 4 MG/2 ML VIAL IVP STA (17:05)
[2017-07-27] MEDS ORDERED: SODIUM CHLORIDE 0.9% 1,000 ML IV SCH (17:30)
--- NOTE | 2017-07-27 17:30 | ED ---
General Adult HPI - General Chief complaint: Nausea/Vomiting/Diarrhea Stated complaint: Nausea, vomiting, abd pain Time Seen by Provider: 07/27/17 16:10 Source: patient Mode of arrival: ambulatory Limitations: no limitations - History of Present Illness Initial comments: 21 years old male comes in with the nausea vomiting and sugar has been out-of- control, he said her sugar has been high he is feeling palpitation and his heart is racing and he has been throwing up he vomited 4 times this morning, complains about some mild abdominal pain he been dizzy. He denies any fever no neck stiffness no chest pain no shortness of breath no abdominal pain no frequency urgency dysuria he does have a history of ketoacidosis in the past his orthopedic intake has been very poor - Related Data Home Medications Medication Instructions Recorded Confirmed Insulin Glargine [Lantus] 20 unit SQ HS 07/27/17 07/27/17 Previous Rx's Medication Instructions Recorded FLUoxetine HCL [PROzac] 40 mg PO DAILY #30 cap 05/09/17 Insulin Aspart [NovoLOG 6 unit SQ AC-TID #1 vial 05/09/17 (formulary)] buPROPion XL [Wellbutrin XL] 300 mg PO DAILY #30 tab.er.24h 05/09/17 traZODone HCL [Desyrel] 200 mg PO HS #30 tab 05/09/17 Allergies Allergy/AdvReac Type Severity Reaction Status Date / Time No Known Allergies Allergy Verified 07/27/17 16:42 Review of Systems ROS Statement: Those systems with pertinent positive or pertinent negative responses have been documented in the HPI. ROS Other: All systems not noted in ROS Statement are negative. Past Medical History Past Medical History: Diabetes Mellitus, Skin Disorder Additional Past Medical History / Comment(s): Asthma outgrown by age 9, insulin dependent diabetes diagnosed 2.5 yrs ago October 2013;oral motor apraxia;. psoriasis, previous suicidal attempts (08/2014, 03/2015); anxiety/depression, previous hospital physicians for DKA,gastroparesis. History of Any Multi-Drug Resistant Organisms: None Reported Past Surgical History: Adenoidectomy Additional Past Surgical History / Comment(s): 2002 Past Anesthesia/Blood Transfusion Reactions: No Reported Reaction Past Psychological History: Anxiety, Depression Smoking Status: Former smoker Past Alcohol Use History: None Reported Past Drug Use History: Marijuana - Past Family History Mother Family Medical History: CVA/TIA Father Family Medical History: Hyperlipidemia, Hypertension Additional Family Medical History / Comment(s): . General Exam - General Exam Comments Initial Comments: General: The patient is awake and alert, he looks pale and tired Skin: Skin is warm and dry and no rashes or lesions are noted. Eye: Pupils are equal, round and reactive to light, extra-ocular movements are intact; there is normal conjunctiva bilaterally. Ears, nose, mouth and throat: There are moist mucous membranes and no oral lesions. Neck: The neck is supple, there is no tenderness or JVD. Cardiovascular: There is a regular rate and rhythm. No murmur, rub or gallop is appreciated. Respiratory: To auscultation bilateral, no wheezing no rhonchi no distress respiratory yancey noticed Gastrointestinal: Soft, non-distended, non-tender abdomen without masses or organomegaly noted. There is no rebound or guarding present. Bowel sounds are unremarkable. Back: There is no tenderness to palpation in the midline. There is no obvious deformity. Musculoskeletal: Normal ROM, no tenderness, There is no pedal edema. There is no calf tenderness or swelling. No cords were appreciated. Neurological: CN II-XII intact, Cranial nerves III through XII are intact. There are no obvious motor or sensory deficits. Coordination appears grossly intact. Speech is normal. Psychiatric: Cooperative, appropriate mood & affect, normal judgment. Limitations: no limitations Course Vital Signs 07/27/17 07/27/17 07/27/17 15:45 17:07 18:11 Temperature 98.3 F 98.9 F Pulse Rate 140 H 120 H 113 H Respiratory 20 16 16 Rate Blood Pressure 127/80 126/86 O2 Sat by Pulse 99 97 99 Oximetry - Reevaluation(s) Reevaluation #1: Spoke with the outcomes analyst Dr. West myself and informed him about the patient being admitted to ICU 07/27/17 18:31 EKG Findings - EKG Comments: EKG Findings:: EKG is a sinus tachycardia ventricular rate is 170 LA interval is 136 QRS duration is 90 QT/QTc is 362/504 review of this EKG does not reveal any ST elevation or ST depression sinus tach secondary to severe dehydration Medical Decision Making - Lab Data Result diagrams: 07/27/17 16:11 07/27/17 16:11 Lab Results 07/27/17 07/27/17 07/27/17 Range/Units 15:54 16:11 16:11 WBC 10.8 (4.0-11.0) k/uL RBC 6.22 H (4.30-5.90) m/uL Hgb 19.5 H (13.0-17.5) gm/dL Hct 56.7 H (39.0-53.0) % MCV 91.2 (80.0-100.0) fL MCH 31.3 (25.0-35.0) pg MCHC 34.3 (31.0-37.0) g/dL RDW 12.2 (11.5-15.5) % Plt Count 468 H (150-450) k/uL Neutrophils % 67 % Lymphocytes % 27 % Monocytes % 4 % Eosinophils % 0 % Basophils % 1 % Neutrophils # 7.3 (1.3-7.7) k/uL Lymphocytes # 2.9 (1.0-4.8) k/uL Monocytes # 0.4 (0-1.0) k/uL Eosinophils # 0.0 (0-0.7) k/uL Basophils # 0.1 (0-0.2) k/uL VBG pH (7.31-7.41) VBG pCO2 (37-51) mmHg VBG HCO3 (24-28) mmol/L Sodium 136 L (137-145) mmol/L Potassium 4.9 (3.5-5.1) mmol/L Chloride 98 (98-107) mmol/L Carbon Dioxide 8 L* (22-30) mmol/L Anion Gap 30 mmol/L BUN 19 (9-20) mg/dL Creatinine 0.90 (0.66-1.25) mg/dL Est GFR (MDRD) Af Amer >60 (>60 ml/min/1.73 sqM) Est GFR (MDRD) Non-Af >60 (>60 ml/min/1.73 sqM) Glucose 341 H (74-99) mg/dL POC Glucose (mg/dL) 328 H (75-99) mg/dL POC Glu Welding Machine Operator Electro Gas ID Plasma Lactic Acid Len (0.7-2.0) mmol/L Calcium 10.1 (8.4-10.2) mg/dL Total Bilirubin 0.8 (0.2-1.3) mg/dL AST 12 L (17-59) U/L ALT 19 L (21-72) U/L Alkaline Phosphatase 75 (38-126) U/L Total Protein 7.9 (6.3-8.2) g/dL Albumin 5.0 (3.5-5.0) g/dL 07/27/17 07/27/17 Range/Units 16:11 17:21 WBC (4.0-11.0) k/uL RBC (4.30-5.90) m/uL Hgb (13.0-17.5) gm/dL Hct (39.0-53.0) % MCV (80.0-100.0) fL MCH (25.0-35.0) pg MCHC (31.0-37.0) g/dL RDW (11.5-15.5) % Plt Count (150-450) k/uL Neutrophils % % Lymphocytes % % Monocytes % % Eosinophils % % Basophils % % Neutrophils # (1.3-7.7) k/uL Lymphocytes # (1.0-4.8) k/uL Monocytes # (0-1.0) k/uL Eosinophils # (0-0.7) k/uL Basophils # (0-0.2) k/uL VBG pH 7.17 L* (7.31-7.41) VBG pCO2 26 L (37-51) mmHg VBG HCO3 9 L* (24-28) mmol/L Sodium (137-145) mmol/L Potassium (3.5-5.1) mmol/L Chloride (98-107) mmol/L Carbon Dioxide (22-30) mmol/L Anion Gap mmol/L BUN (9-20) mg/dL Creatinine (0.66-1.25) mg/dL Est GFR (MDRD) Af Amer (>60 ml/min/1.73 sqM) Est GFR (MDRD) Non-Af (>60 ml/min/1.73 sqM) Glucose (74-99) mg/dL POC Glucose (mg/dL) (75-99) mg/dL POC Glu Welding Machine Operator Electro Gas ID Plasma Lactic Acid Len 2.2 H* (0.7-2.0) mmol/L Calcium (8.4-10.2) mg/dL Total Bilirubin (0.2-1.3) mg/dL AST (17-59) U/L ALT (21-72) U/L Alkaline Phosphatase (38-126) U/L Total Protein (6.3-8.2) g/dL Albumin (3.5-5.0) g/dL Critical Care Time Total Critical Care Time: 30 Critical Care Time: 12 years old male comes in with the high sugar abdominal pain nausea vomiting and feeling weak, blood work reveals normal CBC, CO2 is 8 he's he has a severe metabolic acidosis his sugar is 3421 lactate is 2.2 and ordered 2.5 L of fluid bolus with a 200 mils an hour now and we have started on an insulin infusion considering his severe metabolic acidosis have ordered the blood cultures urine cultures he be admitted to the ICU Dr. West the outcomes analyst B consulted along with the Dr. Perez the judo teacher and patient be admitted under Dr. Wilver Vincent's service spoke with the Dr. Wilver Vincent he agrees with the plan and now this fluid bolus will address the severe tachycardia patient presented with antibiotic was 140 and we are keeping the sepsis differential diagnosis and a picture in the urine and blood cultures and a chest x-ray Disposition Clinical Impression: Ketoacidosis, Tachycardia, Metabolic acidosis, Respiratory acidosis Disposition: ADMITTED IP TO THIS HOSP Condition: Fair
[2017-07-27 17:33] LABS: VBG PH 7.17 (7.31-7.41)
--- NOTE | 2017-07-27 17:53 | XR ---
EXAMINATION TYPE: XR chest 2V DATE OF EXAM: 07/27/2017 COMPARISON: NONE HISTORY: Fever TECHNIQUE: Frontal and lateral views of the chest are obtained. FINDINGS: Heart and mediastinum are normal. Lungs are clear. Diaphragm is normal. Bony thorax appear s normal. IMPRESSION: Normal chest. No change.
[2017-07-27 17:55] LABS: Glucose,Whole Blood 269 mg/dL (75-99)
[2017-07-27] MEDS: INSULIN REGULAR 100 UNIT in SODIUM CHLORIDE 0.9% 100 ML IV SCH (18:05)
[2017-07-27 18:47] LABS: Glucose,Whole Blood 222 mg/dL (75-99)
[2017-07-27 19:05] LABS: Appearance,Urine Clear (Clear); Bilirubin,Urine Negative (Negative); Blood,Urine Negative (Negative); Cellular Casts,Urine 1 /lpf (0); Color,Urine Light Yellow; Glucose,Urine (UA) 4+ (Negative); Granular Casts,Urine 11 /lpf (0); Leukocyte Esterase,Urine Negative (Negative); Mucus,Urine Rare /hpf; PH, Urine 5.5 (5.0-8.0); Protein,Urine 1+ (Negative); RBC,Urine 1 /hpf (0-5); Specific Gravity,Urine 1.025 (1.001-1.035); Urobilinogen,Urine <2.0 mg/dL (<2.0); WBC,Urine <1 /hpf (0-5)
[2017-07-27 19:06] LABS: Ketones,Urine 4+ (Negative)
[2017-07-27] MEDS: D5-0.45% NACL WITH KCL 20MEQ/L 1,000 ML IV SCH (19:14)
[2017-07-27 19:15] LABS: Glucose,Whole Blood 185 mg/dL (75-99)
[2017-07-27 20:08] LABS: Glucose,Whole Blood 180 mg/dL (75-99)
[2017-07-27] MEDS: traZODone HCL 100 MG TAB PO SCH (20:14)
[2017-07-27 20:45] LABS: Anion Gap 15 mmol/L; Blood Urea Nitrogen 20 mg/dL (9-20); Carbon Dioxide 16 mmol/L (22-30); Chloride 104 mmol/L (98-107); Glucose 189 mg/dL (74-99); Potassium 3.9 mmol/L (3.5-5.1); Sodium 135 mmol/L (137-145)
[2017-07-27 21:06] LABS: Glucose,Whole Blood 201 mg/dL (75-99)
[2017-07-27 22:05] LABS: Glucose,Whole Blood 168 mg/dL (75-99)
[2017-07-27 23:03] LABS: Glucose,Whole Blood 157 mg/dL (75-99)
[2017-07-28 00:07] LABS: Glucose,Whole Blood 130 mg/dL (75-99)
[2017-07-28 00:57] LABS: Anion Gap 10 mmol/L; Blood Urea Nitrogen 19 mg/dL (9-20); Carbon Dioxide 22 mmol/L (22-30); Chloride 103 mmol/L (98-107); Glucose 127 mg/dL (74-99); Potassium 4.2 mmol/L (3.5-5.1); Sodium 135 mmol/L (137-145)
[2017-07-28] MEDS ORDERED: NALOXONE 0.4 MG/ML 1 ML VIAL IV PRN (01:36)
[2017-07-28 01:38] LABS: Glucose,Whole Blood 124 mg/dL (75-99)
[2017-07-28 02:10] LABS: Glucose,Whole Blood 122 mg/dL (75-99)
[2017-07-28] MEDS: D5-0.45% NACL WITH KCL 20MEQ/L 1,000 ML IV SCH ×2 (02:19→10:05)
[2017-07-28 03:08] LABS: Glucose,Whole Blood 139 mg/dL (75-99)
[2017-07-28 04:03] LABS: Glucose,Whole Blood 176 mg/dL (75-99)
[2017-07-28 04:52] LABS: Basophils % (A) 0 %; Eosinophils # (A) 0.1 k/uL (0-0.7); Eosinophils % (A) 2 %; HCT 43.8 % (39.0-53.0); Hyperchromasia Slight; Lymphocytes # (A) 2.6 k/uL (1.0-4.8); Lymphocytes % (A) 30 %; MCH 31.2 pg (25.0-35.0); MCHC 35.2 g/dL (31.0-37.0); MCV 88.7 fL (80.0-100.0); Mean Platelet Volume 6.4; Monocytes # (A) 0.4 k/uL (0-1.0); Monocytes % (A) 5 %; Neutrophils # (A) 5.3 k/uL (1.3-7.7); Neutrophils % (A) 61 %; Platelet Count 320 k/uL (150-450); RBC 4.94 m/uL (4.30-5.90); RDW 11.8 % (11.5-15.5); WBC 8.7 k/uL (4.0-11.0)
[2017-07-28 04:59] LABS: HGB 15.4 gm/dL (13.0-17.5)
[2017-07-28 05:01] LABS: Anion Gap 11 mmol/L; Blood Urea Nitrogen 17 mg/dL (9-20); Calcium 8.5 mg/dL (8.4-10.2); Carbon Dioxide 20 mmol/L (22-30); Chloride 101 mmol/L (98-107); Glucose 204 mg/dL (74-99); Potassium 4.3 mmol/L (3.5-5.1); Sodium 132 mmol/L (137-145)
[2017-07-28 05:06] LABS: Glucose,Whole Blood 221 mg/dL (75-99)
[2017-07-28 06:57] LABS: Glucose,Whole Blood 258 mg/dL (75-99)
[2017-07-28] MEDS ORDERED: Magnesium Replacement Protocol 1 EACH MISC MISCELLANE PRN (07:11)
[2017-07-28 08:04] LABS: Glucose,Whole Blood 230 mg/dL (75-99)
[2017-07-28] MEDS: HEPARIN SODIUM,PORCINE 5,000 UNIT/ML 1 ML VIAL SQ SCH ×2 (08:25→17:33)
[2017-07-28] MEDS: MAGNESIUM SULFATE-D5W PMX 1 GM in DEXTROSE/WATER 1 100ML.BAG IVPB SCH ×2 (08:25→10:05)
[2017-07-28] MEDS: FLUoxetine HCL 20 MG CAP PO SCH (08:48)
[2017-07-28] MEDS: FAMOTIDINE 20 MG TAB PO SCH ×2 (08:48→20:26)
[2017-07-28] MEDS: buPROPion XL 300 MG TAB.ER.24H PO SCH (08:48)
[2017-07-28 09:04] LABS: Glucose,Whole Blood 310 mg/dL (75-99)
[2017-07-28 10:04] LABS: Glucose,Whole Blood 271 mg/dL (75-99)
[2017-07-28 10:19] VITALS: BMI 17.7
[2017-07-28 10:42] LABS: ALT 29 U/L (21-72); AST 10 U/L (17-59); Albumin 3.5 g/dL (3.5-5.0); Alkaline Phosphatase 57 U/L (38-126); Anion Gap 12 mmol/L; Blood Urea Nitrogen 13 mg/dL (9-20); Calcium 8.7 mg/dL (8.4-10.2); Carbon Dioxide 20 mmol/L (22-30); Chloride 97 mmol/L (98-107); Glucose 278 mg/dL (74-99); Sodium 129 mmol/L (137-145); Total Bilirubin 0.8 mg/dL (0.2-1.3); Total Protein 5.7 g/dL (6.3-8.2)
[2017-07-28 11:17] LABS: Glucose,Whole Blood 275 mg/dL (75-99)
[2017-07-28] MEDS: INSULIN REGULAR 100 UNIT in SODIUM CHLORIDE 0.9% 100 ML IV SCH (12:13)
[2017-07-28] MEDS: INSULIN DETEMIR 100 UNIT/ML 10 ML VIAL SQ SCH (12:14)
--- NOTE | 2017-07-28 12:20 | HP ---
HISTORY AND PHYSICAL CHIEF COMPLAINT: A 21-year-old, white male, nausea, vomiting, diarrhea. HISTORY OF PRESENT ILLNESS: This is a 21-year-old white male who comes in with nausea, vomiting and diabetes out of control. Sugars have been high. He has not been eating or drinking for 2 or 3 days after having some type of food poisoning. palpitations, heart racing 4 times he states. No melena or hematochezia. No neck stiffness. No shortness of breath. No frequency or urgency or hesitancy. MEDICATIONS: Home medications included: 1. Lantus 20 units subcu daily. 2. He is supposed to be on Prozac 40 mg daily, not sure if he is taking it or trazodone 200 q.h.s. ALLERGIES: Allergies are negative. REVIEW OF SYSTEMS: Fourteen-point review of systems negative except for as mentioned in HPI. PAST MEDICAL HISTORY: Depression, insulin-dependent diabetes mellitus, asthma, psoriasis, anxiety, depression, multiple DKA, gastroparesis secondary to depression, noncompliance with diet. SURGERIES: Adenoidectomy. Anxiety, depression, former smoker, marijuana user. FAMILY HISTORY: Mother with CVA, TIA. Dad with dyslipidemia, hypertension. PHYSICAL EXAM: Temp 98.9, pulse rate 113 to 140, respiratory rate 16 to 20, O2 of 97 on room air, blood pressure 120s over 80s. CONSTITUTIONAL: He is alert and orient x3. PSYCH: Fair mood and affect: Giving appropriate answers. SKIN: Warm, dry. No rash or excoriation present. CARDIOVASCULAR: S1, S2, tachy. Lungs are no rales, rhonchi, or wheezing. HEMATOLOGY: Negative Homans. GI: Soft, nontender. Hemoglobin is 19.5, hematocrit 56.7. Lactic acid 2.2. ASSESSMENT: 1. Diabetic ketoacidosis. 2. Type 1 diabetes mellitus. 3. Tachycardia secondary to diabetic ketoacidosis. Do urine and blood cultures, chest x-ray, metabolic acidosis, respiratory alkalosis. Continue current treatment. Please see further orders. MMODL / IJN: [id number] /
[2017-07-28 12:28] LABS: Glucose,Whole Blood 265 mg/dL (75-99)
[2017-07-28] MEDS: INSULIN ASPART 100 UNIT/ML 1 ML 10 ML VIAL SQ SCH ×5 (12:32→22:11)
[2017-07-28 16:42] LABS: Hemoglobin A1C 11.1 % (4.0-6.0)
[2017-07-28 16:54] LABS: Glucose,Whole Blood 215 mg/dL (75-99)
[2017-07-28 17:18] LABS: ALT 22 U/L (21-72); AST 12 U/L (17-59); Albumin 3.6 g/dL (3.5-5.0); Alkaline Phosphatase 54 U/L (38-126); Anion Gap 11 mmol/L; Blood Urea Nitrogen 10 mg/dL (9-20); Calcium 8.7 mg/dL (8.4-10.2); Carbon Dioxide 24 mmol/L (22-30); Chloride 95 mmol/L (98-107); Glucose 230 mg/dL (74-99); Potassium 3.6 mmol/L (3.5-5.1); Sodium 130 mmol/L (137-145); Total Bilirubin 0.7 mg/dL (0.2-1.3); Total Protein 5.9 g/dL (6.3-8.2)
--- NOTE | 2017-07-28 18:11 | P.CNPUL ---
History of Present Illness Consult date: 07/28/17 Chief complaint: Critical care management uncontrolled diabetes and hyperglycemia DKA History of present illness: Patient was seen evaluated examined in the ICU for uncontrolled diabetes and hyperglycemia patient has not been feeling well for the last 3 days with the loose stool diarrhea has been taking his insulin but because very weak and dehydrated came into emergency department he was tachypneic tachycardic with the severe degree of metabolic acidosis and hyperglycemia, patient has been resuscitated with fluids and insulin drip patient had no bowel movement for last several hours in fact patient is not feeling hungry and wants to eat, diarrhea subsided significantly patient also had urine along with x-ray which is unremarkable Review of Systems All systems: negative Past Medical History Past Medical History: Diabetes Mellitus, Skin Disorder Additional Past Medical History / Comment(s): Asthma outgrown by age 9, insulin dependent diabetes diagnosed 2.5 yrs ago October 2013;oral motor apraxia;. psoriasis, previous suicidal attempts (08/2014, 03/2015); anxiety/depression, previous hospital physicians for DKA,gastroparesis. History of Any Multi-Drug Resistant Organisms: None Reported Past Surgical History: Adenoidectomy Additional Past Surgical History / Comment(s): 2002 Past Anesthesia/Blood Transfusion Reactions: No Reported Reaction Past Psychological History: Anxiety, Depression Smoking Status: Former smoker Past Alcohol Use History: None Reported Past Drug Use History: Marijuana - Past Family History Mother Family Medical History: CVA/TIA Father Family Medical History: Hyperlipidemia, Hypertension Additional Family Medical History / Comment(s): . Medications and Allergies Home Medications Medication Instructions Recorded Confirmed Type FLUoxetine HCL [PROzac] 40 mg PO DAILY #30 cap 05/09/17 07/27/17 Rx Insulin Aspart [NovoLOG 6 unit SQ AC-TID #1 vial 05/09/17 07/27/17 Rx (formulary)] buPROPion XL [Wellbutrin XL] 300 mg PO DAILY #30 tab.er.24h 05/09/17 07/27/17 Rx traZODone HCL [Desyrel] 200 mg PO HS #30 tab 05/09/17 07/27/17 Rx Insulin Glargine [Lantus] 20 unit SQ HS 07/27/17 07/27/17 History Allergies Allergy/AdvReac Type Severity Reaction Status Date / Time No Known Allergies Allergy Verified 07/27/17 16:42 Physical Exam Vitals: Vital Signs Temp Pulse Pulse Resp BP BP Pulse Ox 07/28/17 17:10 99.1 F 101 H 16 132/91 100 07/28/17 14:00 99.4 F 108 H 16 133/87 100 07/28/17 13:00 111 H 15 151/102 100 07/28/17 12:00 104 H 15 124/90 100 07/28/17 11:40 10 L 07/28/17 11:00 99 10 L 120/93 99 07/28/17 10:00 102 H 14 114/89 98 07/28/17 09:00 102 H 16 120/83 99 07/28/17 08:00 97.8 F 112 H 11 L 126/87 99 07/28/17 07:00 109 H 13 127/88 98 07/28/17 06:00 118 H 18 126/85 97 07/28/17 05:00 109 H 18 135/83 97 07/28/17 04:00 98.8 F 114 H 18 119/79 97 07/28/17 03:00 122 H 14 112/75 97 07/28/17 02:00 129 H 18 114/67 97 07/28/17 01:00 114 H 17 104/78 98 07/28/17 00:00 120 H 18 117/68 99 07/27/17 23:04 117 H 16 120/76 97 07/27/17 23:00 112 H 16 120/76 97 07/27/17 22:00 122 H 15 118/71 97 07/27/17 21:00 124 H 16 117/77 97 07/27/17 20:00 98.5 F 123 H 14 140/85 98 07/27/17 19:00 114 H 12 140/85 99 07/27/17 18:50 97.9 F 115 H 12 140/85 99 07/27/17 18:11 98.9 F 113 H 16 126/86 99 Intake and Output 07/28/17 07/28/17 07/28/17 06:59 14:59 22:59 Intake Total 1096.599 754.763 Output Total 1400 1790 Balance -303.401 -1035.237 Intake: IV 1050 750 D5-0.45% NaCl with KCl 1050 750 20Meq/l 1,000 ml @ 150 mls/hr IV .[id number] [facility] Rx# :[id number] Intake, IV Titration 46.599 4.763 Amount Insulin Regular 100 unit 46.599 4.763 In Sodium Chloride 0.9% 100 ml @ 0.1 UNITS/KG/HR 6.41 mls/hr IV .[id number] YAEL Rx#:[id number] Output: Urine 1400 1790 Other: Voiding Method Urinal Urinal Weight 64.4 kg 64.4 kg Patient Weight 07/29/17 06:59 Weight 64.4 kg General: The patient is awake and alert, he looks pale and tired Skin: Skin is warm and dry and no rashes or lesions are noted. Eye: Pupils are equal, round and reactive to light, extra-ocular movements are intact; there is normal conjunctiva bilaterally. Ears, nose, mouth and throat: There are moist mucous membranes and no oral lesions. Neck: The neck is supple, there is no tenderness or JVD. Cardiovascular: There is a regular rate and rhythm. No murmur, rub or gallop is appreciated. Respiratory: To auscultation bilateral, no wheezing no rhonchi no distress respiratory yancey noticed Gastrointestinal: Soft, non-distended, non-tender abdomen without masses or organomegaly noted. There is no rebound or guarding present. Bowel sounds are unremarkable. Back: There is no tenderness to palpation in the midline. There is no obvious deformity. Musculoskeletal: Normal ROM, no tenderness, There is no pedal edema. There is no calf tenderness or swelling. No cords were appreciated. Neurological: CN II-XII intact, Cranial nerves III through XII are intact. There are no obvious motor or sensory deficits. Coordination appears grossly intact. Speech is normal. Psychiatric: Cooperative, appropriate mood & affect, normal judgment. Results - Laboratory Findings CBC and BMP: 07/28/17 04:45 07/28/17 16:06 Abnormal lab findings: Abnormal Labs 07/27/17 07/27/17 07/27/17 15:54 16:11 16:11 RBC 6.22 H Hgb 19.5 H Hct 56.7 H Plt Count 468 H VBG pH VBG pCO2 VBG HCO3 Sodium 136 L Chloride Carbon Dioxide 8 L* Creatinine Glucose 341 H POC Glucose (mg/dL) 328 H Plasma Lactic Acid Len AST 12 L ALT 19 L Total Protein Urine Protein Urine Glucose (UA) Urine Ketones Urine Mucus 07/27/17 07/27/17 07/27/17 16:11 17:21 17:50 RBC Hgb Hct Plt Count VBG pH 7.17 L* VBG pCO2 26 L VBG HCO3 9 L* Sodium Chloride Carbon Dioxide Creatinine Glucose POC Glucose (mg/dL) 269 H Plasma Lactic Acid Len 2.2 H* AST ALT Total Protein Urine Protein Urine Glucose (UA) Urine Ketones Urine Mucus 07/27/17 07/27/17 07/27/17 17:59 18:45 19:13 RBC Hgb Hct Plt Count VBG pH VBG pCO2 VBG HCO3 Sodium Chloride Carbon Dioxide Creatinine Glucose POC Glucose (mg/dL) 222 H 185 H Plasma Lactic Acid Len AST ALT Total Protein Urine Protein 1+ H Urine Glucose (UA) 4+ H Urine Ketones 4+ H Urine Mucus Rare H 07/27/17 07/27/17 07/27/17 20:07 20:24 21:05 RBC Hgb Hct Plt Count VBG pH VBG pCO2 VBG HCO3 Sodium 135 L Chloride Carbon Dioxide 16 L Creatinine 0.60 L Glucose 189 H POC Glucose (mg/dL) 180 H 201 H Plasma Lactic Acid Len AST ALT Total Protein Urine Protein Urine Glucose (UA) Urine Ketones Urine Mucus 07/27/17 07/27/17 07/28/17 22:04 23:01 00:06 RBC Hgb Hct Plt Count VBG pH VBG pCO2 VBG HCO3 Sodium Chloride Carbon Dioxide Creatinine Glucose POC Glucose (mg/dL) 168 H 157 H 130 H Plasma Lactic Acid Len AST ALT Total Protein Urine Protein Urine Glucose (UA) Urine Ketones Urine Mucus 07/28/17 07/28/17 07/28/17 00:25 01:00 02:09 RBC Hgb Hct Plt Count VBG pH VBG pCO2 VBG HCO3 Sodium 135 L Chloride Carbon Dioxide Creatinine 0.60 L Glucose 127 H POC Glucose (mg/dL) 124 H 122 H Plasma Lactic Acid Len AST ALT Total Protein Urine Protein Urine Glucose (UA) Urine Ketones Urine Mucus 07/28/17 07/28/17 07/28/17 03:06 04:01 04:45 RBC Hgb Hct Plt Count VBG pH VBG pCO2 VBG HCO3 Sodium 132 L Chloride Carbon Dioxide 20 L Creatinine 0.60 L Glucose 204 H POC Glucose (mg/dL) 139 H 176 H Plasma Lactic Acid Len AST ALT Total Protein Urine Protein Urine Glucose (UA) Urine Ketones Urine Mucus 07/28/17 07/28/17 07/28/17 05:05 06:56 08:02 RBC Hgb Hct Plt Count VBG pH VBG pCO2 VBG HCO3 Sodium Chloride Carbon Dioxide Creatinine Glucose POC Glucose (mg/dL) 221 H 258 H 230 H Plasma Lactic Acid Len AST ALT Total Protein Urine Protein Urine Glucose (UA) Urine Ketones Urine Mucus 07/28/17 07/28/17 07/28/17 09:03 09:55 10:03 RBC Hgb Hct Plt Count VBG pH VBG pCO2 VBG HCO3 Sodium 129 L Chloride 97 L Carbon Dioxide 20 L Creatinine 0.53 L Glucose 278 H POC Glucose (mg/dL) 310 H 271 H Plasma Lactic Acid Len AST 10 L ALT Total Protein 5.7 L Urine Protein Urine Glucose (UA) Urine Ketones Urine Mucus 07/28/17 07/28/17 07/28/17 11:15 12:25 16:06 RBC Hgb Hct Plt Count VBG pH VBG pCO2 VBG HCO3 Sodium 130 L Chloride 95 L Carbon Dioxide Creatinine 0.50 L Glucose 230 H POC Glucose (mg/dL) 275 H 265 H Plasma Lactic Acid Len AST 12 L ALT Total Protein 5.9 L Urine Protein Urine Glucose (UA) Urine Ketones Urine Mucus 07/28/17 16:25 RBC Hgb Hct Plt Count VBG pH VBG pCO2 VBG HCO3 Sodium Chloride Carbon Dioxide Creatinine Glucose POC Glucose (mg/dL) 215 H Plasma Lactic Acid Len AST ALT Total Protein Urine Protein Urine Glucose (UA) Urine Ketones Urine Mucus - Diagnostic Findings Chest x-ray: report reviewed, image reviewed Assessment and Plan Assessment: Acute diabetic ketoacidosis Uncontrolled diabetes and hyperglycemia Intravascular volume depletion dehydration severe tachycardia and metabolic acidosis Plan: DC insulin drip resumed patient on Lantus as using at home, will initiate patient on NovoLog 3 times a day with meals, patient is being started on 1800- calorie diet Continue gentle rehydration increase activity as tolerated patient can be moved out of the ICU hold on starting antibiotics follow clinical course closely We will hold also on further abdominal workup as patient is fairly asymptomatic as sugars are better under control suspect nausea vomiting and diarrhea was likely related to uncontrolled diabetes and hyperglycemia further recommendations pending plan of care as per clinical response of the patient Time with Patient: Greater than 30
[2017-07-28] MEDS: traZODone HCL 100 MG TAB PO SCH (20:26)
[2017-07-28 21:32] LABS: Glucose,Whole Blood 285 mg/dL (75-99)
[2017-07-29] MEDS: HEPARIN SODIUM,PORCINE 5,000 UNIT/ML 1 ML VIAL SQ SCH ×4 (01:36→23:41)
[2017-07-29 06:20] LABS: Glucose,Whole Blood 257 mg/dL (75-99)
[2017-07-29 06:39] LABS: Basophils % (A) 1 %; Eosinophils # (A) 0.1 k/uL (0-0.7); Eosinophils % (A) 1 %; HCT 43.9 % (39.0-53.0); Hyperchromasia Slight; Lymphocytes # (A) 2.3 k/uL (1.0-4.8); Lymphocytes % (A) 36 %; MCH 31.3 pg (25.0-35.0); MCHC 36.5 g/dL (31.0-37.0); MCV 85.8 fL (80.0-100.0); Mean Platelet Volume 6.7; Monocytes # (A) 0.5 k/uL (0-1.0); Monocytes % (A) 8 %; Neutrophils # (A) 3.3 k/uL (1.3-7.7); Neutrophils % (A) 52 %; Platelet Count 277 k/uL (150-450); RBC 5.12 m/uL (4.30-5.90); RDW 11.8 % (11.5-15.5); WBC 6.4 k/uL (4.0-11.0)
[2017-07-29] MEDS: INSULIN ASPART 100 UNIT/ML 1 ML 10 ML VIAL SQ SCH ×7 (06:49→21:28)
[2017-07-29 06:50] LABS: Anion Gap 9 mmol/L; Blood Urea Nitrogen 13 mg/dL (9-20); Calcium 8.8 mg/dL (8.4-10.2); Carbon Dioxide 27 mmol/L (22-30); Chloride 98 mmol/L (98-107); Glucose 248 mg/dL (74-99); Phosphorus 4.1 mg/dL (2.5-4.5); Potassium 3.6 mmol/L (3.5-5.1); Sodium 134 mmol/L (137-145)
[2017-07-29] MEDS: buPROPion XL 300 MG TAB.ER.24H PO SCH (08:53)
[2017-07-29] MEDS: FLUoxetine HCL 20 MG CAP PO SCH (08:53)
[2017-07-29] MEDS: FAMOTIDINE 20 MG TAB PO SCH ×2 (08:54→20:46)
[2017-07-29 11:52] LABS: Glucose,Whole Blood 322 mg/dL (75-99)
[2017-07-29 17:15] LABS: Glucose,Whole Blood 222 mg/dL (75-99)
[2017-07-29 17:57] LABS: T4, Free (Free Thyroxine) 1.88 ng/dL (0.78-2.19)
--- NOTE | 2017-07-29 19:17 | P.PN ---
Subjective Progress Note Date: 07/29/17 Principal diagnosis: Acute diabetic ketoacidosis, uncontrolled diabetes and hyperglycemia, intravascular volume depletion and dehydration, Sirs-like process early sepsis cannot be excluded 07/29/2017, patient seen eval examined during the rounds patient has been moved to stepdown unit out of ICU he is awake and alert sitting upright on the bed breathing comfortably denies any chest pain denies any cough or sputum production nausea vomiting diarrhea or abdominal pain is resolving improved laboratory data reviewed Patient was seen evaluated examined in the ICU for uncontrolled diabetes and hyperglycemia patient has not been feeling well for the last 3 days with the loose stool diarrhea has been taking his insulin but because very weak and dehydrated came into emergency department he was tachypneic tachycardic with the severe degree of metabolic acidosis and hyperglycemia, patient has been resuscitated with fluids and insulin drip patient had no bowel movement for last several hours in fact patient is not feeling hungry and wants to eat, diarrhea subsided significantly patient also had urine along with x-ray which is unremarkable Objective - Vital Signs Vital signs: Vital Signs Temp 97.6 F 07/29/17 15:35 Pulse 123 H 07/29/17 15:35 Resp 18 07/29/17 15:35 BP 117/84 07/29/17 15:35 Pulse Ox 99 07/29/17 15:35 Intake & Output 07/29/17 07/29/17 07/30/17 06:59 18:59 06:59 Intake Total 222 480 Balance 222 480 Weight 53 kg Intake: Oral 222 480 Other: Voiding Method Toilet Toilet # Voids 2 1 - Exam General: The patient is awake and alert, he looks pale and tired Skin: Skin is warm and dry and no rashes or lesions are noted. Eye: Pupils are equal, round and reactive to light, extra-ocular movements are intact; there is normal conjunctiva bilaterally. Ears, nose, mouth and throat: There are moist mucous membranes and no oral lesions. Neck: The neck is supple, there is no tenderness or JVD. Cardiovascular: There is a regular rate and rhythm. No murmur, rub or gallop is appreciated. Respiratory: To auscultation bilateral, no wheezing no rhonchi no distress respiratory yancey noticed Gastrointestinal: Soft, non-distended, non-tender abdomen without masses or organomegaly noted. There is no rebound or guarding present. Bowel sounds are unremarkable. Back: There is no tenderness to palpation in the midline. There is no obvious deformity. Musculoskeletal: Normal ROM, no tenderness, There is no pedal edema. There is no calf tenderness or swelling. No cords were appreciated. Neurological: CN II-XII intact, Cranial nerves III through XII are intact. There are no obvious motor or sensory deficits. Coordination appears grossly intact. Speech is normal. Psychiatric: Cooperative, appropriate mood & affect, normal judgment. - Labs CBC & Chem 7: 07/29/17 05:54 07/29/17 05:54 Labs: Abnormal Lab Results - Last 24 Hours (Table) 07/27/17 07/28/17 07/29/17 Range/Units 16:11 21:21 05:54 Sodium 134 L (137-145) mmol/L Creatinine 0.54 L (0.66-1.25) mg/dL Glucose 248 H (74-99) mg/dL POC Glucose (mg/dL) 285 H (75-99) mg/dL Hemoglobin A1c 11.1 H (4.0-6.0) % 07/29/17 07/29/17 07/29/17 Range/Units 06:07 11:47 16:52 Sodium (137-145) mmol/L Creatinine (0.66-1.25) mg/dL Glucose (74-99) mg/dL POC Glucose (mg/dL) 257 H 322 H 222 H (75-99) mg/dL Hemoglobin A1c (4.0-6.0) % Microbiology - Last 24 Hours (Table) 07/27/17 17:21 Blood Culture - Preliminary Blood No Growth after 24 hours 07/27/17 17:59 Urine Culture - Final Urine,Voided Assessment and Plan Assessment: Acute diabetic ketoacidosis Uncontrolled diabetes and hyperglycemia Intravascular volume depletion dehydration severe tachycardia and metabolic acidosis my improving Agri with discharge planning blood culture urine culture results reviewed patient can be discharged home from critical care standpoint Plan: DC insulin drip resumed patient on Lantus as using at home, will initiate patient on NovoLog 3 times a day with meals, patient is being started on 1800- calorie diet Continue gentle rehydration increase activity as tolerated patient can be moved out of the ICU hold on starting antibiotics follow clinical course closely We will hold also on further abdominal workup as patient is fairly asymptomatic as sugars are better under control suspect nausea vomiting and diarrhea was likely related to uncontrolled diabetes and hyperglycemia further recommendations pending plan of care as per clinical response of the patient Time with Patient: Greater than 30
[2017-07-29] MEDS: traZODone HCL 100 MG TAB PO SCH (20:46)
[2017-07-29 21:04] LABS: Glucose,Whole Blood 262 mg/dL (75-99)
[2017-07-29] MEDS: INSULIN DETEMIR 100 UNIT/ML 10 ML VIAL SQ SCH (21:28)
--- NOTE | 2017-07-29 23:21 | PN ---
PROGRESS NOTE DATE OF SERVICE: 07/29/2017. SUBJECTIVE: A 21-year-old white male with severe metabolic acidosis, diabetic ketoacidosis. OBJECTIVE: Vital signs stable, afebrile. Cardiovascular, S1 and S2. Lungs clear. GI soft. Hematology, negative Homans. Pulses is in the 120s to 130s. ASSESSMENT: Diabetic ketoacidosis, metabolic acidosis, tachycardia .TSH and free T4 is being ordered. Echo is being ordered. Please see further orders. Cardiology consult. Possible discharge home. MMODL / IJN: [id number] /
[2017-07-30 06:14] LABS: Glucose,Whole Blood 191 mg/dL (75-99)
[2017-07-30] MEDS: INSULIN ASPART 100 UNIT/ML 1 ML 10 ML VIAL SQ SCH ×6 (06:24→17:07)
[2017-07-30 07:08] LABS: Basophils % (A) 1 %; Eosinophils # (A) 0.1 k/uL (0-0.7); Eosinophils % (A) 2 %; HCT 46.4 % (39.0-53.0); HGB 16.8 gm/dL (13.0-17.5); Lymphocytes # (A) 1.9 k/uL (1.0-4.8); Lymphocytes % (A) 30 %; MCHC 36.2 g/dL (31.0-37.0); MCV 85.7 fL (80.0-100.0); Mean Platelet Volume 6.6; Monocytes # (A) 0.5 k/uL (0-1.0); Monocytes % (A) 8 %; Neutrophils # (A) 3.6 k/uL (1.3-7.7); Neutrophils % (A) 58 %; Platelet Count 257 k/uL (150-450); RBC 5.41 m/uL (4.30-5.90); RDW 11.8 % (11.5-15.5); WBC 6.3 k/uL (4.0-11.0)
[2017-07-30 07:10] LABS: Anion Gap 11 mmol/L; Blood Urea Nitrogen 12 mg/dL (9-20); Calcium 9.6 mg/dL (8.4-10.2); Carbon Dioxide 32 mmol/L (22-30); Chloride 95 mmol/L (98-107); Glucose 189 mg/dL (74-99); Phosphorus 4.7 mg/dL (2.5-4.5); Potassium 3.8 mmol/L (3.5-5.1); Sodium 138 mmol/L (137-145)
[2017-07-30] MEDS: HEPARIN SODIUM,PORCINE 5,000 UNIT/ML 1 ML VIAL SQ SCH ×2 (08:19→15:19)
[2017-07-30] MEDS: FLUoxetine HCL 20 MG CAP PO SCH (09:39)
[2017-07-30] MEDS: buPROPion XL 300 MG TAB.ER.24H PO SCH (09:40)
[2017-07-30] MEDS: FAMOTIDINE 20 MG TAB PO SCH (09:40)
[2017-07-30 10:23] VITALS: RESP 18
--- NOTE | 2017-07-30 10:59 | P.CRDCN ---
History of Present Illness History of present illness: Young male presenting with nausea vomiting was found to be acidotic. Current ALLERGY was consulted for an abnormal ECG. ECG was reviewed and shows sinus tachycardia. Patient interviewed and examined no chest pain no shortness of breath feeling well looks well. From a cardiac standpoint continue medical management no cardiac workup at this time this appears to be sinus tachycardia. Please check TSH as an outpatient once the acute phase has been treated Please see full dictation by the nurse practitioner Past Medical History Past Medical History: Diabetes Mellitus, Skin Disorder Additional Past Medical History / Comment(s): Asthma outgrown by age 9, insulin dependent diabetes diagnosed 2.5 yrs ago October 2013;oral motor apraxia;. psoriasis, previous suicidal attempts (08/2014, 03/2015); anxiety/depression, previous hospital physicians for DKA,gastroparesis. History of Any Multi-Drug Resistant Organisms: None Reported Past Surgical History: Adenoidectomy Additional Past Surgical History / Comment(s): 2002 Past Anesthesia/Blood Transfusion Reactions: No Reported Reaction Past Psychological History: Anxiety, Depression Smoking Status: Former smoker Past Alcohol Use History: None Reported Past Drug Use History: Marijuana - Past Family History Mother Family Medical History: CVA/TIA Father Family Medical History: Hyperlipidemia, Hypertension Additional Family Medical History / Comment(s): . Medications and Allergies Home Medications Medication Instructions Recorded Confirmed Type FLUoxetine HCL [PROzac] 40 mg PO DAILY #30 cap 05/09/17 07/27/17 Rx Insulin Aspart [NovoLOG 6 unit SQ AC-TID #1 vial 05/09/17 07/27/17 Rx (formulary)] buPROPion XL [Wellbutrin XL] 300 mg PO DAILY #30 tab.er.24h 05/09/17 07/27/17 Rx traZODone HCL [Desyrel] 200 mg PO HS #30 tab 05/09/17 07/27/17 Rx Insulin Glargine [Lantus] 20 unit SQ HS 07/27/17 07/27/17 History Allergies Allergy/AdvReac Type Severity Reaction Status Date / Time No Known Allergies Allergy Verified 07/27/17 16:42 Physical Exam Vitals: Vital Signs Temp Pulse Pulse Resp BP Pulse Ox 07/30/17 08:10 96.9 F L 103 H 18 115/83 99 07/30/17 04:00 97 F L 117 H 16 117/78 97 03/07/18 00:00 108 H 16 132/98 98 07/29/17 20:00 97 F L 103 H 16 128/86 97 07/29/17 15:35 97.6 F 123 H 18 117/84 99 07/29/17 12:00 97.1 F L 100 110 H 18 127/83 98 Intake and Output 07/29/17 07/30/17 07/30/17 22:59 06:59 14:59 Intake Total 120 332 Balance 120 332 Intake: Oral 120 332 Other: Voiding Method Toilet # Voids 1 Weight 54.6 kg Results 07/30/17 06:22 07/30/17 06:22 CBC 07/30/17 Range/Units 06:22 WBC 6.3 (4.0-11.0) k/uL RBC 5.41 (4.30-5.90) m/uL Hgb 16.8 (13.0-17.5) gm/dL Hct 46.4 (39.0-53.0) % Plt Count 257 (150-450) k/uL Comprehensive Metabolic Panel 07/30/17 Range/Units 06:22 Sodium 138 (137-145) mmol/L Potassium 3.8 (3.5-5.1) mmol/L Chloride 95 L (98-107) mmol/L Carbon Dioxide 32 H (22-30) mmol/L BUN 12 (9-20) mg/dL Creatinine 0.63 L (0.66-1.25) mg/dL Glucose 189 H (74-99) mg/dL Calcium 9.6 (8.4-10.2) mg/dL Current Medications Generic Name Dose Route Start Last Admin Trade Name Freq PRN Reason Stop Dose Admin Bupropion HCl 300 mg 07/28/17 09:00 07/30/17 09:40 Wellbutrin Xl PO 300 mg DAILY YAEL Administration Famotidine 20 mg 07/28/17 09:00 07/30/17 09:40 Pepcid PO 20 mg BID YAEL Administration Fluoxetine HCl 40 mg 07/28/17 09:00 07/30/17 09:39 Prozac PO 40 mg DAILY YAEL Administration Heparin Sodium (Porcine) 5,000 unit 07/28/17 08:00 07/30/17 08:19 Heparin SQ Not Given Q8HR [facility] Insulin Aspart 0 unit 07/28/17 12:30 07/30/17 06:24 Novolog SQ 2 unit ACHS YAEL Administration Protocol Insulin Aspart 5 unit 07/28/17 12:30 07/30/17 06:24 Novolog SQ 5 unit AC-TID YAEL Administration Insulin Detemir 20 unit 07/28/17 11:45 07/29/17 21:28 Levemir SQ 20 unit HS YAEL Administration Miscellaneous Information 1 each 07/28/17 07:11 Magnesium Per Protocol MISCELLANE DAILY PRN Per Protocol Protocol Naloxone HCl 0.2 mg 07/28/17 01:36 Narcan IV Q2M PRN Opioid Reversal Trazodone HCl 200 mg 07/27/17 21:00 07/29/17 20:46 Desyrel PO 200 mg HS YAEL Administration Intake and Output 07/29/17 07/30/17 07/30/17 22:59 06:59 14:59 Intake Total 120 332 Balance 120 332 Intake: Oral 120 332 Other: Voiding Method Toilet # Voids 1 Weight 54.6 kg 07/30/17 06:22 07/30/17 06:22
[2017-07-30 12:12] LABS: Glucose,Whole Blood 282 mg/dL (75-99)
--- NOTE | 2017-07-30 15:06 | P.CRDCN ---
History of Present Illness Consult date: 07/30/17 Reason for Consult (text): Tachycardia Chief complaint: Nausea and vomiting History of present illness: This is a 21-year-old gentleman with history of diabetes, several admissions for DKA in the past, history of asthma, psoriasis, anxiety and depression, who presented to the hospital with symptoms of multiple episodes of nausea and vomiting. Urology consultation was requested because of tachycardia. EKG shows sinus tachycardia with a right axis deviation. Blood pressure 118/86, heart rate in the 1 teens. Laboratory data, white blood cell count 6.3, hemoglobin 16.8, platelet count 257. Sodium 138, potassium 3.8, BUN 12, creatinine 0.6. Easy him 2.0, TSH 0.81, T4 1 0.8. Blood sugars 341 on arrival. Patient was seen in consultation by Dr. Basurto, denies any chest pain , no shortness of breath, no palpitations. From cardiology's perspective SPECT of, we'll continue medical management, no cardiac workup at this time because the patient appears to be in sinus tachycardia. TSH is normal. Past Medical History Past Medical History: Diabetes Mellitus, Skin Disorder Additional Past Medical History / Comment(s): Asthma outgrown by age 9, insulin dependent diabetes diagnosed 2.5 yrs ago October 2013;oral motor apraxia;. psoriasis, previous suicidal attempts (08/2014, 03/2015); anxiety/depression, previous hospital physicians for DKA,gastroparesis. History of Any Multi-Drug Resistant Organisms: None Reported Past Surgical History: Adenoidectomy Additional Past Surgical History / Comment(s): 2002 Past Anesthesia/Blood Transfusion Reactions: No Reported Reaction Past Psychological History: Anxiety, Depression Smoking Status: Former smoker Past Alcohol Use History: None Reported Past Drug Use History: Marijuana - Past Family History Mother Family Medical History: CVA/TIA Father Family Medical History: Hyperlipidemia, Hypertension Additional Family Medical History / Comment(s): . Medications and Allergies Home Medications Medication Instructions Recorded Confirmed Type FLUoxetine HCL [PROzac] 40 mg PO DAILY #30 cap 05/09/17 07/27/17 Rx Insulin Aspart [NovoLOG 6 unit SQ AC-TID #1 vial 05/09/17 07/27/17 Rx (formulary)] buPROPion XL [Wellbutrin XL] 300 mg PO DAILY #30 tab.er.24h 05/09/17 07/27/17 Rx traZODone HCL [Desyrel] 200 mg PO HS #30 tab 05/09/17 07/27/17 Rx Insulin Glargine [Lantus] 20 unit SQ HS 07/27/17 07/27/17 History Allergies Allergy/AdvReac Type Severity Reaction Status Date / Time No Known Allergies Allergy Verified 07/27/17 16:42 Physical Exam Vitals: Vital Signs Temp Pulse Resp BP Pulse Ox 07/30/17 12:10 125 H 18 118/86 100 07/30/17 08:10 96.9 F L 103 H 18 115/83 99 07/30/17 04:00 97 F L 117 H 16 117/78 97 07/30/17 00:00 108 H 16 132/98 98 07/29/17 20:00 97 F L 103 H 16 128/86 97 07/29/17 15:35 97.6 F 123 H 18 117/84 99 Intake and Output 07/29/17 07/30/17 07/30/17 22:59 06:59 14:59 Intake Total 683 885 3985 Balance 251 625 2003 Intake: Oral 070 239 3314 Other: Voiding Method Toilet # Voids 1 2 Weight 54.6 kg PHYSICAL EXAMINATION: HEENT: Head is atraumatic, normocephalic. Pupils equal, round. Neck is supple. There is no elevated jugular venous pressure. HEART EXAMINATION: Heart S1, S2 normal. No murmur or gallop heard. CHEST EXAMINATION: Lungs are clear to auscultation and precussion. No chest wall tenderness is noted on palpation or with deep breathing. ABDOMEN: Soft, nontender. Bowel sounds are heard. No organomegaly noted. EXTREMITIES: 2+ peripheral pulses with no evidence of peripheral edema and no calf tenderness noted. NEUROLOGIC patient is awake, alert and oriented -3. . Results 07/30/17 06:22 07/30/17 06:22 CBC 07/30/17 Range/Units 06:22 WBC 6.3 (4.0-11.0) k/uL RBC 5.41 (4.30-5.90) m/uL Hgb 16.8 (13.0-17.5) gm/dL Hct 46.4 (39.0-53.0) % Plt Count 257 (150-450) k/uL Comprehensive Metabolic Panel 07/30/17 Range/Units 06:22 Sodium 138 (137-145) mmol/L Potassium 3.8 (3.5-5.1) mmol/L Chloride 95 L (98-107) mmol/L Carbon Dioxide 32 H (22-30) mmol/L BUN 12 (9-20) mg/dL Creatinine 0.63 L (0.66-1.25) mg/dL Glucose 189 H (74-99) mg/dL Calcium 9.6 (8.4-10.2) mg/dL Current Medications Generic Name Dose Route Start Last Admin Trade Name Freq PRN Reason Stop Dose Admin Bupropion HCl 300 mg 07/28/17 09:00 07/30/17 09:40 Wellbutrin Xl PO 300 mg DAILY YAEL Administration Famotidine 20 mg 07/28/17 09:00 07/30/17 09:40 Pepcid PO 20 mg BID YAEL Administration Fluoxetine HCl 40 mg 07/28/17 09:00 07/30/17 09:39 Prozac PO 40 mg DAILY YAEL Administration Heparin Sodium (Porcine) 5,000 unit 07/28/17 08:00 07/30/17 08:19 Heparin SQ Not Given Q8HR [facility] Insulin Aspart 0 unit 07/28/17 12:30 07/30/17 12:19 Novolog SQ 4 unit ACHS [facility] Administration Protocol Insulin Aspart 5 unit 07/28/17 12:30 07/30/17 12:20 Novolog SQ 5 unit AC-TID YAEL Administration Insulin Detemir 20 unit 07/28/17 11:45 07/29/17 21:28 Levemir SQ 20 unit HS [facility] Administration Miscellaneous Information 1 each 07/28/17 07:11 Magnesium Per Protocol MISCELLANE DAILY PRN Per Protocol Protocol Naloxone HCl 0.2 mg 07/28/17 01:36 Narcan IV Q2M PRN Opioid Reversal Trazodone HCl 200 mg 07/27/17 21:00 07/29/17 20:46 Desyrel PO 200 mg HS [facility] Administration Intake and Output 07/29/17 07/30/17 07/30/17 22:59 06:59 14:59 Intake Total 484 675 8924 Balance 961 291 9474 Intake: Oral 868 619 6098 Other: Voiding Method Toilet # Voids 1 2 Weight 54.6 kg 07/30/17 06:22 07/30/17 06:22 EKG Interpretations (text) EKG shows a sinus tachycardia with no acute changes. Assessment and Plan Plan: Assessment and plan #1 diabetic ketoacidosis #2 diabetes #3 sinus tachycardia, TSH level normal Plan We do not remember recommend any further cardiac workup at this time as the patient is in a sinus tachycardia. TSH level is normal. We will follow him along with you now on an as-needed basis only, please don't hesitate to call with any questions. Workup later as an outpatient. DNP note has been reviewed, I agree with a documented findings and plan of care. Patient was seen and examined.
[2017-07-30 16:43] LABS: Glucose,Whole Blood 231 mg/dL (75-99)
[2017-07-30 16:53] VITALS: BP 135/91; PULSE 112; TEMP 97
== END 2017-07-30 17:45 | disposition home or self-care (01) | DRG 638 ==
LOC: EC 15:29 → 6ICU 17:30 → 6SEL 07-28 13:53
PROVIDERS: ADMIT Family Medicine; ATTEND Family Medicine
DX: E10.10 Type 1 diabetes mellitus with ketoacidosis without coma (principal); E87.3 Alkalosis; R65.10 Systemic inflammatory response syndrome (SIRS) of non-infectious origin without acute organ dysfunction; K31.84 Gastroparesis; E10.43 Type 1 diabetes mellitus with diabetic autonomic (poly)neuropathy; E86.0 Dehydration; J45.909 Unspecified asthma, uncomplicated; Z79.4 Long term (current) use of insulin; Z79.899 Other long term (current) drug therapy; Z82.3 Family history of stroke; Z82.49 Family history of ischemic heart disease and other diseases of the circulatory system; Z87.891 Personal history of nicotine dependence; Z91.11 Patient's noncompliance with dietary regimen; R00.0 Tachycardia, unspecified; L40.9 Psoriasis, unspecified; Z91.5 Personal history of self-harm; R19.7 Diarrhea, unspecified; R11.2 Nausea with vomiting, unspecified; F12.90 Cannabis use, unspecified, uncomplicated
CPT/HCPCS: 36415; 71046; 80048; 80051; 80053; 81001; 82009; 82565; 82803; 82947; 83036; 83605; 83735; 84100; 84439; 84443; 84520; 85025; 87040; 87086; 93005; 96374; 99291

== ENCOUNTER 2017-08-22 10:32 | Inpatient (IN) | payer OTHER ==
[2017-08-22] MEDS ORDERED: SODIUM CHLORIDE 0.9% 1,000 ML IV ONE ×2 (10:43)
[2017-08-22 10:45] LABS: Glucose,Whole Blood 475 mg/dL (75-99)
[2017-08-22] MEDS ORDERED: NALOXONE 0.4 MG/ML 10 ML VIAL IVP STA (10:45)
[2017-08-22] MEDS ORDERED: INSULIN REGULAR 100 UNIT/ML VIAL IV ONE (10:48)
--- NOTE | 2017-08-22 10:53 | ED ---
Altered Mental Status HPI - General Chief Complaint: Altered Mental Status Stated Complaint: DKA Time Seen by Provider: 08/22/17 10:43 Source: patient, RN notes reviewed Mode of arrival: wheelchair Limitations: no limitations - History of Present Illness Initial Comments: This is a 22-year-old male with a history of insulin-dependent diabetes as well as depression who apparently has been on a birthday binge drinking a lot of alcohol. He has not eaten any food for the past 2 or 3 days. His mother he was found to be altered and minimally responsive this morning. It is unclear if his sugar is high. Also unclear whether he's been doing drugs or trying to intentionally hurt himself as he has a history of this in the past. He was brought in by private vehicle. No trauma is reported no fevers chills sweats some nausea was reported. MD Complaint: altered mental status, confusion, decreased responsiveness - Related Data Home Medications Medication Instructions Recorded Confirmed INSULIN LISPRO (humaLOG) [humaLOG] 1 - 7 units SQ ACHS 08/22/17 08/22/17 Insulin Detemir [Levemir] 20 unit SQ DAILY 08/22/17 08/22/17 Allergies Allergy/AdvReac Type Severity Reaction Status Date / Time No Known Allergies Allergy Verified 08/22/17 11:14 Review of Systems ROS Statement: Those systems with pertinent positive or pertinent negative responses have been documented in the HPI. ROS Other: All systems not noted in ROS Statement are negative. Limitations: ROS unobtainable due to patients medical condition Past Medical History Past Medical History: Diabetes Mellitus, Skin Disorder Additional Past Medical History / Comment(s): Asthma outgrown by age 9, insulin dependent diabetes diagnosed 2.5 yrs ago October 2013;oral motor apraxia;. psoriasis, previous suicidal attempts (08/2014, 03/2015); anxiety/depression, previous hospital physicians for DKA,gastroparesis. History of Any Multi-Drug Resistant Organisms: None Reported Past Surgical History: Adenoidectomy Additional Past Surgical History / Comment(s): 2002 Past Anesthesia/Blood Transfusion Reactions: No Reported Reaction Past Psychological History: Anxiety, Depression Smoking Status: Former smoker Past Alcohol Use History: None Reported Past Drug Use History: Marijuana - Past Family History Mother Family Medical History: CVA/TIA Father Family Medical History: Hyperlipidemia, Hypertension Additional Family Medical History / Comment(s): . General Exam - General Exam Comments Initial Comments: Is a well-developed asthenic appearing male who is unresponsive to verbal stimulus. He does have the smell of alcohol conjoiners on his breath Limitations: no limitations General appearance: obtunded Head exam: Present: atraumatic, normocephalic, normal inspection Eye exam: Present: normal appearance, PERRL, EOMI. Absent: scleral icterus, conjunctival injection, periorbital swelling ENT exam: Present: mucous membranes dry Neck exam: Present: normal inspection. Absent: tenderness, meningismus, lymphadenopathy Respiratory exam: Present: decreased breath sounds, other (Tachypnea) Cardiovascular Exam: Present: normal rhythm, tachycardia GI/Abdominal exam: Present: soft, normal bowel sounds. Absent: distended, tenderness, guarding, rebound, rigid Rectal exam: Present: deferred Extremities exam: Present: normal inspection, normal capillary refill. Absent: tenderness, pedal edema, joint swelling, calf tenderness Back exam: Present: normal inspection Neurological exam: Present: altered Psychiatric exam: Present: other (Unable to evaluate) Skin exam: Present: warm, dry, intact, normal color. Absent: rash Course Vital Signs 08/22/17 08/22/17 08/22/17 10:34 11:18 12:58 Temperature 97 F L Pulse Rate 63 122 H 119 H Respiratory 34 H 28 H 24 Rate Blood Pressure 112/70 121/74 141/95 O2 Sat by Pulse 100 100 Oximetry - Reevaluation(s) Reevaluation #1: 08/22/17 12:32 The patient was more responsive after the initial therapy. I did discuss him the findings with the patient's mother. Reevaluation #2: 08/22/17 14:29 Reevaluation finds a paced be more alert and responsive. This initial note was placed a loss with a computer crashed. Medical Decision Making - Medical Decision Making I did discuss findings with the patient and with the patient's mother patient is mother believes the patient is depressed and possibly suicidal psychiatric evaluation will be performing the patient is cleared medically. - Lab Data Result diagrams: 08/22/17 10:50 08/22/17 10:50 Lab Results 08/22/17 08/22/17 08/22/17 Range/Units 10:43 10:50 10:50 WBC (4.0-11.0) k/uL RBC (4.30-5.90) m/uL Hgb (13.0-17.5) gm/dL Hct (39.0-53.0) % MCV (80.0-100.0) fL MCH (25.0-35.0) pg MCHC (31.0-37.0) g/dL RDW (11.5-15.5) % Plt Count (150-450) k/uL Neutrophils % (Manual) % Band Neutrophils % % Lymphocytes % (Manual) % Monocytes % (Manual) % Neutrophils # (Manual) (1.3-7.7) k/uL Lymphocytes # (Manual) (1.0-4.8) k/uL Monocytes # (Manual) (0-1.0) k/uL Nucleated RBCs (0-0) /100 WBC Manual Slide Review RBC Morphology Sodium 143 (137-145) mmol/L Potassium 5.0 (3.5-5.1) mmol/L Chloride 97 L (98-107) mmol/L Carbon Dioxide <5 L* (22-30) mmol/L Anion Gap mmol/L BUN 37 H (9-20) mg/dL Creatinine 1.50 H (0.66-1.25) mg/dL Est GFR (CKD-EPI)AfAm 77 (>60 ml/min/1.73 sqM) Est GFR (CKD-EPI)NonAf 66 (>60 ml/min/1.73 sqM) Glucose 555 H* (74-99) mg/dL POC Glucose (mg/dL) 475 H (75-99) mg/dL POC Glu Production Team Leader ID McDaid, Jenn Calcium 10.3 H (8.4-10.2) mg/dL Magnesium 2.7 H (1.6-2.3) mg/dL Total Bilirubin 0.5 (0.2-1.3) mg/dL AST 13 L (17-59) U/L ALT 18 L (21-72) U/L Alkaline Phosphatase 96 (38-126) U/L Ammonia 12 (<30) umol/L Total Creatine Kinase (55-170) U/L CK-MB (CK-2) (0.0-2.4) ng/mL CK-MB (CK-2) Rel Index Troponin I (0.000-0.034) ng/mL Total Protein 7.8 (6.3-8.2) g/dL Albumin 5.0 (3.5-5.0) g/dL Lipase 14 L (23-300) U/L Urine Color Urine Appearance (Clear) Urine pH (5.0-8.0) Ur Specific Honeydew (1.001-1.035) Urine Protein (Negative) Urine Glucose (UA) (Negative) Urine Ketones (Negative) Urine Blood (Negative) Urine Nitrite (Negative) Urine Bilirubin (Negative) Urine Urobilinogen (<2.0) mg/dL Ur Leukocyte Esterase (Negative) Urine RBC (0-5) /hpf Urine WBC (0-5) /hpf Urine Mucus (None) /hpf Salicylates <1.0 mg/dL Urine Opiates Screen (NotDetected) Ur Oxycodone Screen (NotDetected) Urine Methadone Screen (NotDetected) Ur Propoxyphene Screen (NotDetected) Acetaminophen <10.0 ug/mL Ur Barbiturates Screen (NotDetected) U Tricyclic Antidepress (NotDetected) Ur Phencyclidine Scrn (NotDetected) Ur Amphetamines Screen (NotDetected) U Methamphetamines Scrn (NotDetected) U Benzodiazepines Scrn (NotDetected) Urine Cocaine Screen (NotDetected) U Marijuana (THC) Screen (NotDetected) Serum Alcohol 12 mg/dL Acetone, Qual Positive (Negative) 08/22/17 08/22/17 08/22/17 Range/Units 10:50 10:50 12:53 WBC 25.7 H* (4.0-11.0) k/uL RBC 6.08 H (4.30-5.90) m/uL Hgb 19.1 H (13.0-17.5) gm/dL Hct 57.6 H (39.0-53.0) % MCV 94.7 D (80.0-100.0) fL MCH 31.3 (25.0-35.0) pg MCHC 33.1 (31.0-37.0) g/dL RDW 12.7 (11.5-15.5) % Plt Count 609 H D (150-450) k/uL Neutrophils % (Manual) 84 % Band Neutrophils % 4 % Lymphocytes % (Manual) 7 % Monocytes % (Manual) 6 % Neutrophils # (Manual) 22.60 H (1.3-7.7) k/uL Lymphocytes # (Manual) 1.80 (1.0-4.8) k/uL Monocytes # (Manual) 1.54 H (0-1.0) k/uL Nucleated RBCs 0 (0-0) /100 WBC Manual Slide Review Performed RBC Morphology Normal Sodium (137-145) mmol/L Potassium (3.5-5.1) mmol/L Chloride (98-107) mmol/L Carbon Dioxide (22-30) mmol/L Anion Gap mmol/L BUN (9-20) mg/dL Creatinine (0.66-1.25) mg/dL Est GFR (CKD-EPI)AfAm (>60 ml/min/1.73 sqM) Est GFR (CKD-EPI)NonAf (>60 ml/min/1.73 sqM) Glucose (74-99) mg/dL POC Glucose (mg/dL) 384 H (75-99) mg/dL POC Glu Production Team Leader ID McDaid, Jenn Calcium (8.4-10.2) mg/dL Magnesium (1.6-2.3) mg/dL Total Bilirubin (0.2-1.3) mg/dL AST (17-59) U/L ALT (21-72) U/L Alkaline Phosphatase (38-126) U/L Ammonia (<30) umol/L Total Creatine Kinase 33 L (55-170) U/L CK-MB (CK-2) 1.0 (0.0-2.4) ng/mL CK-MB (CK-2) Rel Index 3.0 Troponin I <0.012 (0.000-0.034) ng/mL Total Protein (6.3-8.2) g/dL Albumin (3.5-5.0) g/dL Lipase (23-300) U/L Urine Color Urine Appearance (Clear) Urine pH (5.0-8.0) Ur Specific Honeydew (1.001-1.035) Urine Protein (Negative) Urine Glucose (UA) (Negative) Urine Ketones (Negative) Urine Blood (Negative) Urine Nitrite (Negative) Urine Bilirubin (Negative) Urine Urobilinogen (<2.0) mg/dL Ur Leukocyte Esterase (Negative) Urine RBC (0-5) /hpf Urine WBC (0-5) /hpf Urine Mucus (None) /hpf Salicylates mg/dL Urine Opiates Screen (NotDetected) Ur Oxycodone Screen (NotDetected) Urine Methadone Screen (NotDetected) Ur Propoxyphene Screen (NotDetected) Acetaminophen ug/mL Ur Barbiturates Screen (NotDetected) U Tricyclic Antidepress (NotDetected) Ur Phencyclidine Scrn (NotDetected) Ur Amphetamines Screen (NotDetected) U Methamphetamines Scrn (NotDetected) U Benzodiazepines Scrn (NotDetected) Urine Cocaine Screen (NotDetected) U Marijuana (THC) Screen (NotDetected) Serum Alcohol mg/dL Acetone, Qual (Negative) 08/22/17 08/22/17 Range/Units 12:57 13:36 WBC (4.0-11.0) k/uL RBC (4.30-5.90) m/uL Hgb (13.0-17.5) gm/dL Hct (39.0-53.0) % MCV (80.0-100.0) fL MCH (25.0-35.0) pg MCHC (31.0-37.0) g/dL RDW (11.5-15.5) % Plt Count (150-450) k/uL Neutrophils % (Manual) % Band Neutrophils % % Lymphocytes % (Manual) % Monocytes % (Manual) % Neutrophils # (Manual) (1.3-7.7) k/uL Lymphocytes # (Manual) (1.0-4.8) k/uL Monocytes # (Manual) (0-1.0) k/uL Nucleated RBCs (0-0) /100 WBC Manual Slide Review RBC Morphology Sodium (137-145) mmol/L Potassium (3.5-5.1) mmol/L Chloride (98-107) mmol/L Carbon Dioxide (22-30) mmol/L Anion Gap mmol/L BUN (9-20) mg/dL Creatinine (0.66-1.25) mg/dL Est GFR (CKD-EPI)AfAm (>60 ml/min/1.73 sqM) Est GFR (CKD-EPI)NonAf (>60 ml/min/1.73 sqM) Glucose (74-99) mg/dL POC Glucose (mg/dL) 356 H (75-99) mg/dL POC Glu Production Team Leader ID Jenn Pozo Calcium (8.4-10.2) mg/dL Magnesium (1.6-2.3) mg/dL Total Bilirubin (0.2-1.3) mg/dL AST (17-59) U/L ALT (21-72) U/L Alkaline Phosphatase (38-126) U/L Ammonia (<30) umol/L Total Creatine Kinase (55-170) U/L CK-MB (CK-2) (0.0-2.4) ng/mL CK-MB (CK-2) Rel Index Troponin I (0.000-0.034) ng/mL Total Protein (6.3-8.2) g/dL Albumin (3.5-5.0) g/dL Lipase (23-300) U/L Urine Color Light Yellow Urine Appearance Clear (Clear) Urine pH 5.0 (5.0-8.0) Ur Specific Honeydew 1.021 (1.001-1.035) Urine Protein 1+ H (Negative) Urine Glucose (UA) 4+ H (Negative) Urine Ketones 4+ H (Negative) Urine Blood Trace H (Negative) Urine Nitrite Negative (Negative) Urine Bilirubin Negative (Negative) Urine Urobilinogen <2.0 (<2.0) mg/dL Ur Leukocyte Esterase Negative (Negative) Urine RBC <1 (0-5) /hpf Urine WBC 1 (0-5) /hpf Urine Mucus Rare H (None) /hpf Salicylates mg/dL Urine Opiates Screen Not Detected (NotDetected) Ur Oxycodone Screen Not Detected (NotDetected) Urine Methadone Screen Not Detected (NotDetected) Ur Propoxyphene Screen Not Detected (NotDetected) Acetaminophen ug/mL Ur Barbiturates Screen Not Detected (NotDetected) U Tricyclic Antidepress Not Detected (NotDetected) Ur Phencyclidine Scrn Not Detected (NotDetected) Ur Amphetamines Screen Not Detected (NotDetected) U Methamphetamines Scrn Not Detected (NotDetected) U Benzodiazepines Scrn Not Detected (NotDetected) Urine Cocaine Screen Not Detected (NotDetected) U Marijuana (THC) Screen Detected H (NotDetected) Serum Alcohol mg/dL Acetone, Qual (Negative) - EKG Data -: EKG Interpreted by Me EKG shows normal: sinus rhythm (Sinus tachycardia rate 1:30. Interval 140 QRS duration [address]-T QTC 308/453 by atrial enlargement nonspecific anterolateral changes artifact is present.) - Radiology Data Radiology results: report reviewed (I did review the imaging and report no acute findings.), image reviewed Critical Care Time Critical Care Time: Yes Critical Care Time: 43 minutes of critical care time which includes initial presentation with history physical labs x-rays reevaluation patient responsive therapy and several occasions discussion with the patient and mother regarding findings. Documentation the above discussed with the main physician. Disposition Clinical Impression: Diabetic ketoacidosis associated with type 1 diabetes mellitus, Depression, Dehydration Disposition: ADMITTED IP TO THIS [facility] Condition: Stable Referrals: Wilver Vincent MD [Primary Care Provider] - 1-2 days
[2017-08-22 11:11] LABS: HGB 19.1 gm/dL (13.0-17.5); MCH 31.3 pg (25.0-35.0); MCHC 33.1 g/dL (31.0-37.0); MCV 94.7 fL (80.0-100.0); Mean Platelet Volume 7.1; Platelet Count 609 k/uL (150-450); RBC 6.08 m/uL (4.30-5.90); RDW 12.7 % (11.5-15.5)
[2017-08-22] MEDS ORDERED: SODIUM CHLORIDE 0.9% 1,000 ML IV STA (11:13)
[2017-08-22 11:24] LABS: ALT 18 U/L (21-72); AST 13 U/L (17-59); Acetaminophen <10.0 ug/mL; Alcohol 12 mg/dL; Alkaline Phosphatase 96 U/L (38-126); Blood Urea Nitrogen 37 mg/dL (9-20); Calcium 10.3 mg/dL (8.4-10.2); Chloride 97 mmol/L (98-107); Lipase 14 U/L (23-300); Magnesium 2.7 mg/dL (1.6-2.3); Salicylate <1.0 mg/dL; Sodium 143 mmol/L (137-145); Total Bilirubin 0.5 mg/dL (0.2-1.3); Total Protein 7.8 g/dL (6.3-8.2)
[2017-08-22 11:25] LABS: HCT 57.6 % (39.0-53.0)
[2017-08-22 11:29] LABS: WBC 25.7 k/uL (4.0-11.0)
[2017-08-22 11:34] LABS: Glucose 555 mg/dL (74-99)
--- NOTE | 2017-08-22 11:34 | XR ---
EXAMINATION TYPE: XR chest 1V portable DATE OF EXAM: 08/22/2017 COMPARISON: Chest x-ray July 27, 2017. HISTORY: Chest pain today. TECHNIQUE: Single AP portable frontal upright view of the chest is obtained. FINDINGS: There is no focal air space opacity, pleural effusion, or pneumothorax seen. There is pers istent slightly expanded right lung with leftward deviation of posterior junctional line unchanged fr om prior. The cardiac silhouette size is within normal limits. The osseous structures are intact. IMPRESSION: No acute process. No significant change from prior.
[2017-08-22 11:38] LABS: Carbon Dioxide <5 mmol/L (22-30)
[2017-08-22 11:52] LABS: Band Neutrophils % 4 %; Creatine Kinase 33 U/L (55-170); Monocytes # (M) 1.54 k/uL (0-1.0); Neutrophils % (M) 84 %; Nucleated Red Blood Cells 0 /100 WBC (0-0); Total Cells Counted 200
[2017-08-22 12:03] LABS: Troponin I <0.012 ng/mL (0.000-0.034)
[2017-08-22] MEDS ORDERED: Potassium Replacement Protocol 1 EACH MISC MISCELLANE PRN (12:28)
[2017-08-22] MEDS ORDERED: Magnesium Replacement Protocol 1 EACH MISC MISCELLANE PRN (12:28)
[2017-08-22 12:55] LABS: Glucose,Whole Blood 384 mg/dL (75-99)
[2017-08-22] MEDS: INSULIN REGULAR 100 UNIT in SODIUM CHLORIDE 0.9% 100 ML IV SCH ×2 (12:57→14:42)
[2017-08-22] MEDS: SODIUM CHLORIDE 0.9% 1,000 ML IV SCH ×2 (12:58→20:23)
[2017-08-22 13:18] LABS: Appearance,Urine Clear (Clear); Bilirubin,Urine Negative (Negative); Blood,Urine Trace (Negative); Color,Urine Light Yellow; Glucose,Urine (UA) 4+ (Negative); Leukocyte Esterase,Urine Negative (Negative); Mucus,Urine Rare /hpf; Nitrite,Urine Negative (Negative); Protein,Urine 1+ (Negative); RBC,Urine <1 /hpf (0-5); Specific Gravity,Urine 1.021 (1.001-1.035); Urobilinogen,Urine <2.0 mg/dL (<2.0); WBC,Urine 1 /hpf (0-5)
[2017-08-22 13:29] LABS: Amphetamine Screen,Urine Not Detected (NotDetected); Barbiturate Screen,Urine Not Detected (NotDetected); Benzodiazepines Screen,Urine Not Detected (NotDetected); Cocaine Screen,Urine Not Detected (NotDetected); Methadone Screen, Urine Not Detected (NotDetected); Opiate Screen,Urine Not Detected (NotDetected); Oxycodone Screen, Urine Not Detected (NotDetected); Phencyclidine Screen,Urine Not Detected (NotDetected); Tricyclic Antidepressant,Urine Not Detected (NotDetected); Urn Cannabinoid Scrn Detected (NotDetected)
[2017-08-22 13:44] LABS: Glucose,Whole Blood 356 mg/dL (75-99)
[2017-08-22 13:52] LABS: Ketones,Urine 4+ (Negative)
[2017-08-22] MEDS ORDERED: NALOXONE 0.4 MG/ML 1 ML VIAL IV PRN (14:33)
[2017-08-22 14:51] LABS: Glucose,Whole Blood 382 mg/dL (75-99)
[2017-08-22 15:46] LABS: Glucose,Whole Blood 259 mg/dL (75-99)
[2017-08-22 16:34] VITALS: RESP 18
[2017-08-22 16:45] LABS: VBG PH 7.24 (7.31-7.41)
[2017-08-22 16:53] LABS: Anion Gap 25 mmol/L; Blood Urea Nitrogen 34 mg/dL (9-20); Chloride 110 mmol/L (98-107); Glucose 229 mg/dL (74-99); Phosphorus 2.3 mg/dL (2.5-4.5); Potassium 4.2 mmol/L (3.5-5.1); Sodium 143 mmol/L (137-145)
[2017-08-22 16:56] LABS: Carbon Dioxide 8 mmol/L (22-30)
[2017-08-22 16:57] LABS: Glucose,Whole Blood 233 mg/dL (75-99)
[2017-08-22 18:05] LABS: Glucose,Whole Blood 223 mg/dL (75-99)
[2017-08-22 19:00] LABS: Glucose,Whole Blood 159 mg/dL (75-99)
[2017-08-22] MEDS ORDERED: DEXTROSE 5%-0.45% NACL 1,000 ML IV SCH (19:15)
[2017-08-22 20:00] LABS: Glucose,Whole Blood 156 mg/dL (75-99)
[2017-08-22] MEDS: D5-0.45% NACL WITH KCL 20MEQ/L 1,000 ML IV SCH (20:23)
--- NOTE | 2017-08-22 20:55 | HP ---
HISTORY AND PHYSICAL CHIEF COMPLAINT: [id number] white male, altered mental status DKA. HISTORY OF PRESENT ILLNESS: This is a 22-year-old white male with diabetes mellitus and DKA. He has insulin- dependent diabetes mellitus as well as depression, had a birthday binge of alcohol and had not eaten any food for the past 2-3 days. Unclear why his sugar is so high. Unclear whether he has been doing drugs or tried to intentionally hurt himself due to depression. His mom thinks he needs psych consult and he has been admitted with psychiatric consult. HOME MEDICATIONS: 1. Levemir 20 units daily. 2. Humalog before meals and at bedtime. ALLERGIES: NO KNOWN DRUG ALLERGIES. REVIEW OF SYSTEMS: Fourteen-point review of systems negative. PAST MEDICAL HISTORY: 1. Diabetes mellitus. 2. Skin disorder. 3. Asthma. 4. Psoriasis. 5. Apraxia. 6. Anxiety. 7. Depression. 8. DKA. 9. Gastroparesis. SURGERIES: Appendectomy. SOCIAL HISTORY: Marijuana. Former smoker. No alcohol. PAST FAMILY HISTORY: Mother with CVA, TIA. Father with hypertension dyslipidemia. PHYSICAL EXAMINATION: Thin, cachectic white male, unresponsive, a little sleepy at this time with alcohol, obtunded. HEENT: Normocephalic, atraumatic. OPHTHALMOLOGIC: Pupils equal, round, reactive to light and accommodation. NEUROLOGIC: Alert and oriented x0. PSYCH: Sleepy and lethargic. Fair mood and affect. CARDIOVASCULAR: S1, S2. LUNGS: Clear. GI: Soft. HEMATOLOGIC: Negative Homans. VASCULAR: Normal dorsalis pedis, posterior tibial and radial pulse. Temperature 97, pulses low 100s, respiratory rate 24-34, blood pressure 120s to 140s over 70s to mid 90s. Oxygen 100% in room air. White count is 25.7, hemoglobin 19.1, hematocrit 57, BUN 37, creatinine 1.5. Calcium 10.3, magnesium 2.7. ASSESSMENT: 1. Diabetic ketoacidosis. 2. Alcoholism. 3. Alcohol withdrawal. 4. Depression. 5. Dehydration. 6. Metabolic encephalopathy. 7. Alcohol intoxication. Please see further orders. MMODL / IJN: [id number] /
[2017-08-22 21:03] LABS: Glucose,Whole Blood 114 mg/dL (75-99)
[2017-08-22 21:35] LABS: ALT 22 U/L (21-72); AST 9 U/L (17-59); Albumin 3.2 g/dL (3.5-5.0); Alkaline Phosphatase 58 U/L (38-126); Anion Gap 15 mmol/L; Blood Urea Nitrogen 30 mg/dL (9-20); Calcium 9.1 mg/dL (8.4-10.2); Carbon Dioxide 17 mmol/L (22-30); Chloride 105 mmol/L (98-107); Glucose 113 mg/dL (74-99); Phosphorus 2.1 mg/dL (2.5-4.5); Potassium 3.9 mmol/L (3.5-5.1); Sodium 137 mmol/L (137-145); Total Bilirubin 0.3 mg/dL (0.2-1.3); Total Protein 5.5 g/dL (6.3-8.2)
[2017-08-22 21:52] LABS: Hemoglobin A1C 13.3 % (4.0-6.0)
[2017-08-22 22:11] LABS: Glucose,Whole Blood 110 mg/dL (75-99)
[2017-08-22 23:01] LABS: Glucose,Whole Blood 126 mg/dL (75-99)
[2017-08-23 00:01] LABS: Glucose,Whole Blood 151 mg/dL (75-99)
[2017-08-23 00:58] LABS: Glucose,Whole Blood 186 mg/dL (75-99)
[2017-08-23 02:01] LABS: Glucose,Whole Blood 197 mg/dL (75-99)
[2017-08-23 02:16] LABS: ALT 18 U/L (21-72); AST 10 U/L (17-59); Albumin 2.9 g/dL (3.5-5.0); Alkaline Phosphatase 54 U/L (38-126); Anion Gap 13 mmol/L; Blood Urea Nitrogen 26 mg/dL (9-20); Carbon Dioxide 16 mmol/L (22-30); Chloride 102 mmol/L (98-107); Glucose 215 mg/dL (74-99); Phosphorus 2.5 mg/dL (2.5-4.5); Potassium 4.1 mmol/L (3.5-5.1); Sodium 131 mmol/L (137-145); Total Bilirubin 0.4 mg/dL (0.2-1.3); Total Protein 5.1 g/dL (6.3-8.2)
[2017-08-23] MEDS: D5-0.45% NACL WITH KCL 20MEQ/L 1,000 ML IV SCH ×2 (02:26→11:08)
[2017-08-23 03:01] LABS: Glucose,Whole Blood 222 mg/dL (75-99)
[2017-08-23 04:02] LABS: Glucose,Whole Blood 225 mg/dL (75-99)
[2017-08-23 05:00] LABS: Glucose,Whole Blood 242 mg/dL (75-99)
[2017-08-23 06:00] LABS: Glucose,Whole Blood 255 mg/dL (75-99)
[2017-08-23] MEDS: INSULIN REGULAR 100 UNIT in SODIUM CHLORIDE 0.9% 100 ML IV SCH ×2 (06:02→09:18)
[2017-08-23 06:12] LABS: Basophils % (A) 0 %; Eosinophils # (A) 0.2 k/uL (0-0.7); Eosinophils % (A) 1 %; HCT 41.1 % (39.0-53.0); Lymphocytes # (A) 1.4 k/uL (1.0-4.8); Lymphocytes % (A) 9 %; MCH 30.3 pg (25.0-35.0); MCHC 34.7 g/dL (31.0-37.0); MCV 87.3 fL (80.0-100.0); Mean Platelet Volume 6.7; Monocytes # (A) 0.9 k/uL (0-1.0); Monocytes % (A) 6 %; Neutrophils # (A) 13.3 k/uL (1.3-7.7); Neutrophils % (A) 83 %; Platelet Count 316 k/uL (150-450); RDW 12.6 % (11.5-15.5)
[2017-08-23 06:21] LABS: HGB 14.3 gm/dL (13.0-17.5)
[2017-08-23 06:30] LABS: ALT 21 U/L (21-72); AST 10 U/L (17-59); Albumin 2.8 g/dL (3.5-5.0); Alkaline Phosphatase 58 U/L (38-126); Anion Gap 14 mmol/L; Blood Urea Nitrogen 21 mg/dL (9-20); Calcium 8.8 mg/dL (8.4-10.2); Carbon Dioxide 17 mmol/L (22-30); Chloride 100 mmol/L (98-107); Glucose 269 mg/dL (74-99); Potassium 4.2 mmol/L (3.5-5.1); Sodium 131 mmol/L (137-145); Total Bilirubin 0.4 mg/dL (0.2-1.3); Total Protein 5.1 g/dL (6.3-8.2)
[2017-08-23 06:53] LABS: Glucose,Whole Blood 229 mg/dL (75-99)
[2017-08-23 08:07] LABS: Glucose,Whole Blood 236 mg/dL (75-99)
[2017-08-23 09:17] LABS: Glucose,Whole Blood 270 mg/dL (75-99)
[2017-08-23 10:10] LABS: Glucose,Whole Blood 258 mg/dL (75-99)
[2017-08-23 10:27] VITALS: BMI 16.0
[2017-08-23 11:07] LABS: Glucose,Whole Blood 279 mg/dL (75-99)
[2017-08-23 11:11] LABS: Anion Gap 10 mmol/L; Blood Urea Nitrogen 16 mg/dL (9-20); Calcium 8.5 mg/dL (8.4-10.2); Carbon Dioxide 21 mmol/L (22-30); Chloride 99 mmol/L (98-107); Glucose 270 mg/dL (74-99); Phosphorus 1.7 mg/dL (2.5-4.5); Potassium 3.9 mmol/L (3.5-5.1); Sodium 130 mmol/L (137-145)
[2017-08-23 12:04] LABS: Glucose,Whole Blood 250 mg/dL (75-99)
[2017-08-23 13:07] LABS: Glucose,Whole Blood 286 mg/dL (75-99)
[2017-08-23] MEDS ORDERED: DEXTROSE 5%-0.45% NACL 1,000 ML IV SCH (13:15)
[2017-08-23] MEDS: INSULIN DETEMIR 100 UNIT/ML 10 ML VIAL SQ SCH (14:46)
[2017-08-23 16:27] LABS: Glucose,Whole Blood 354 mg/dL (75-99)
[2017-08-23] MEDS: INSULIN ASPART 100 UNIT/ML 1 ML 10 ML VIAL SQ SCH ×2 (16:35→20:57)
--- NOTE | 2017-08-23 18:41 | PN ---
PROGRESS NOTE SUBJECTIVE: White male with diabetic ketoacidosis, anion gap is closed. He has been placed on a.c. and at bedtime. Awaiting for a psychiatry consult. He states he got sick to stomach and stopped taking medicine and eating due to getting sick on some vap nicotine machine his friend had. He is talking, more alert today. He denies suicidal ideation. CARDIOVASCULAR: S1, S2. LUNGS: Clear. INTEGUMENT: Dry skin, poor mucous membrane. ASSESSMENT: 1. Diabetic ketoacidosis. 2. Dehydration. 3. Depression. Continue current treatments. ACHS, Psychiatry consult, advanced diet. MMODL / IJN: [id number] /
--- NOTE | 2017-08-23 19:24 | P.CN ---
Psychiatric Consult - . Consult date: 08/23/17 Consult:: 08/23/17 19:05 Patient is 22 year old male. He lives with his mother. He reports smoking e vapes/ e cigarettes. He claims each hit had 50mg of nicotine. He claims when he smokes cigarettes it only has 12mg of nicotine in it. He claims he became sick from smoking e-cigarettes. He reports becoming weak, nauseous and not being able to eat. Patients mother wanted him to be seen by psychiatry. When patient was asked why his mother is concerned about him, he stated he at times doesnt take his insulin as prescribed. He however denies feeling sad, hopeless or worthless. He rates his depression as 3/10, one being best and ten being worst. He says there is no particular reason why he forgets to take insulin at times. He denies current suicidal or homicidal ideations. He denies symptoms of bekah or psychosis. He dneies symptom of anxiety. He reports history of marijuana use from young age until an year ago. He does not know the heaviest he smoked. He denies rehab treatments. He reports three psychiatric hospitalizations between ages 19 and april 2017. He claims to have overdosed on insulin around the age of 19 due to being immature, impulsive and having arguments and relationship problems with his girlfriend. He denies suicidal attempts since the age of 19. He states his psychiatric hospitalizations are mostly due to not being himself, confused and being out of it. He stated he had never recieved any out patient psychiatric treatment. He denies receiving psychitric medications outside of his psychiatric hospitalizations. He is currently willing to take zoloft as an antidepressant medication. Mental status exam Patient is 22 year old male. He was sitting on the bed. He is thin male dressed in hospital attire. He maintains good eye contact. No psychomotor agitation or retardation noted. His speech and thought process were goal directed. His mood is euthymic and affect constricted. No auditory or visual halluciantions. No paranoia and he did not appear delusional. He is alert and oriented to time, place and person. Denies current suicidal or homicidal ideations. His insight and judgment are improving. Assessment Depression NOS Plan 1. Will recommend zoloft 25mg po qday for one week and the dose can be increased to 50mg po qday there after. 2. Patient to follow up with outpatient psychiatry for dose adjustment and monitoring of depression.
[2017-08-23 20:29] LABS: Glucose,Whole Blood 251 mg/dL (75-99)
--- NOTE | 2017-08-23 23:25 | CONS ---
CONSULTATION DATE OF SERVICE: 08/23/2017. REASON FOR CONSULTATION: Leukocytosis. HISTORY OF PRESENT ILLNESS: The patient is a 22-year-old, male with past medical history significant for insulin-dependent diabetes mellitus and depression who has been brought into the ER with chief complaints of vomiting and mental status changes. Apparently the patient has been binge drinking a lot apparently did smoke some electronic cigarettes, but it was more full of nicotine, not sure about any drugs. With these symptoms, the patient was evaluated by the ER physician. On arrival to the ER, the patient noticed significant elevated blood sugar of 425. The patient also have a white count of 24.7 with repeat this morning of 16,000. The patient did have a UA that was negative. Urine drug screen was positive for marijuana. Chest x-ray was negative for any pneumonia diarrhea no fever during this hospitalization and denies having any fever, chills prior to coming to the hospital. I was asked to see the patient for further recommendation regarding elevated white count and need for antibiotic therapy. The patient denies any headache. No URI symptoms. No chest pain, shortness of breath, cough. No abdominal pain. No further nausea, vomiting and no diarrhea. No burning or frequency of urine. No joint swelling or any cellulitis. REVIEW OF SYSTEMS: Constitutional: Positive for weakness. No high-grade fever. Eyes no complaint. ENT no complaint. Respiratory no complaint. Cardiovascular no complaint. Genitourinary no complaint. Gastrointestinal: As per HPI. MUSCULOSKELETAL: No complaint. INTEGUMENTARY: No complaint. Psychological no complaint. Endocrine no complaint. Neurologic no complaint. PAST MEDICAL HISTORY: Insulin-dependent diabetes mellitus, asthma, psoriasis, anxiety, depression, DKA, gastroparesis. PAST SURGICAL HISTORY: Adenoidectomy. SOCIAL HISTORY: Positive smoking, marijuana use as well as drinking as mentioned above. FAMILY HISTORY: Mother with history of CVA and TIA. Father history of hypertension and hyperlipidemia. ALLERGIES: No known drug allergies. MEDICATION: The patient is currently on Narcan, Levemir, NovoLog and electrolytes per protocol. On examination blood pressure is 138/90 with a pulse of 110. Temperature 97, he is 98% on room air. General description is a young male lying in bed in no distress. HEENT examination no pallor or scleral icterus. Oral mucosal membranes is moist with no significant erythema or thrush. Neck trachea central. No thyromegaly. Lungs unlabored breathing, clear to auscultation anteriorly. No wheeze or crackles. Heart S1, S2. Regular rate and rhythm. Abdomen soft. No tenderness. No guarding or rigidity. Extremities: No edema of the feet. Skin examination: No rash or mass palpable. Neurological: Patient is awake, alert, oriented times three. Mood and affect normal. LABS: Hemoglobin is 14.8, white count 60,000, BUN of 16, creatinine 0.50. Electrolytes have been normal. Urine is negative. Urine drug screen positive for marijuana. Chest x- ray report negative for any pneumonia. DIAGNOSTIC IMPRESSION AND PLAN: Patient presented to the hospital with mental status changes. Intractable nausea and vomiting after binge drinking and smoking. The patient did have a significant elevated blood sugar likely due to uncontrolled blood sugar, DKA rather than infectious etiology. The patient currently with no focus of infection. He is not running any fever. Urine was negative. Chest report negative. No evidence of any cellulitis or joint swelling. PLAN: 1. No need for any systemic antibiotic therapy as no evidence of any infection at this point. 2. Will repeat a CBC tomorrow and monitor his clinical course closely. If any fever or any worsening leukocytosis, we will order further workup, for now IV fluid and we will control blood sugar . Thank you for this consultation. Will follow this patient along with you. MMODL / IJN: [id number] /
[2017-08-24 03:56] VITALS: BP 122/75; TEMP 97
[2017-08-24 06:06] LABS: Glucose,Whole Blood 123 mg/dL (75-99)
[2017-08-24] MEDS: INSULIN ASPART 100 UNIT/ML 1 ML 10 ML VIAL SQ SCH ×2 (06:30→12:05)
[2017-08-24] MEDS ORDERED: SERTRALINE 25 MG TAB PO SCH (09:00)
[2017-08-24] MEDS: INSULIN DETEMIR 100 UNIT/ML 10 ML VIAL SQ SCH (09:35)
[2017-08-24 12:00] VITALS: PULSE 129
[2017-08-24 12:25] LABS: Glucose,Whole Blood 268 mg/dL (75-99)
--- NOTE | 2017-08-24 12:48 | DS ---
DISCHARGE SUMMARY DISCHARGE DIAGNOSES: 1. Diabetic ketoacidosis. 2. Depression. 3. Dehydration. MEDICATIONS: At home include: Insulin as mentioned above, Zoloft 25 mg a day for depression. CONDITION: Stable. PROGNOSIS: Guarded. Ambulate as tolerated. HOSPITAL COURSE OF EVENTS: White male who was admitted with diabetic ketoacidosis secondary to noncompliance with insulin and abdominal pain secondary to vaping on vap machine of his friends, which made him sick. The patient is placed on DKA protocol for a few days. Electrolytes were replaced. Severe metabolic acidosis. The patient was treated with typical protocol and switched to his regular insulin. Psychiatry saw him and placed him on Zoloft 25 mg a day. He will follow up as outpatient. MMODL / IJN: [id number] /
== END 2017-08-24 13:24 | disposition home or self-care (01) | DRG 639 ==
LOC: EC 10:32 → 6SEL 14:33
PROVIDERS: ADMIT Family Medicine; ATTEND Family Medicine
DX: E10.10 Type 1 diabetes mellitus with ketoacidosis without coma (principal); K31.84 Gastroparesis; E10.43 Type 1 diabetes mellitus with diabetic autonomic (poly)neuropathy; R48.2 Apraxia; E86.0 Dehydration; F32.9 Major depressive disorder, single episode, unspecified; T38.3X6A Underdosing of insulin and oral hypoglycemic [antidiabetic] drugs, initial encounter; F41.9 Anxiety disorder, unspecified; F10.129 Alcohol abuse with intoxication, unspecified; F17.290 Nicotine dependence, other tobacco product, uncomplicated; F12.90 Cannabis use, unspecified, uncomplicated; J45.909 Unspecified asthma, uncomplicated; L40.9 Psoriasis, unspecified; D72.829 Elevated white blood cell count, unspecified; Z79.4 Long term (current) use of insulin; Z98.890 Other specified postprocedural states; Z82.49 Family history of ischemic heart disease and other diseases of the circulatory system; Z82.3 Family history of stroke
CPT/HCPCS: 36415; 51701; 71045; 80048; 80051; 80053; 80306; 80320; 81001; 82009; 82140; 82550; 82553; 82565; 82803; 82947; 83036; 83520; 83690; 83735; 84100; 84484; 84520; 85025; 93005; 96361; 96374; 99291

== ENCOUNTER 2017-08-26 14:38 | Emergency (ER) | payer OTHER ==
[2017-08-26 14:52] VITALS: BP 157/96; PULSE 84; RESP 18; TEMP 97.6
--- NOTE | 2017-08-26 15:14 | ED ---
General Adult HPI - General Chief complaint: Skin/Abscess/Foreign Body Stated complaint: poss ingrown hair behind left knee Time Seen by Provider: 08/26/17 14:48 Source: patient, RN notes reviewed Mode of arrival: ambulatory Limitations: no limitations - History of Present Illness Initial comments: 22-year-old male presents to the emergency department for a chief complaint of possible ingrown hair behind the left knee. Patient states this has been present for 3 days now. Patient states it is painful to bend his knee or apply pressure to the area. Patient has not tried draining the abscess. Patient has never had an ingrown hair like this before. Patient is a type I diabetic. Patient denies any fevers or chills. Patient denies any spreading redness or streaking redness up the leg. Patient denies any other symptoms at this time such as shortness of breath or chest pain. - Related Data Home Medications Medication Instructions Recorded Confirmed INSULIN LISPRO (humaLOG) [humaLOG] 1 - 7 units SQ ACHS 08/22/17 08/22/17 Insulin Detemir [Levemir] 20 unit SQ DAILY 08/22/17 08/22/17 Previous Rx's Medication Instructions Recorded Cephalexin [Keflex] 500 mg PO Q12HR #20 cap 08/26/17 Allergies Allergy/AdvReac Type Severity Reaction Status Date / Time No Known Allergies Allergy Verified 08/26/17 14:50 Review of Systems ROS Statement: Those systems with pertinent positive or pertinent negative responses have been documented in the HPI. ROS Other: All systems not noted in ROS Statement are negative. Past Medical History Past Medical History: Diabetes Mellitus, Skin Disorder Additional Past Medical History / Comment(s): Asthma outgrown by age 9, insulin dependent diabetes diagnosed 2.5 yrs ago October 2013;oral motor apraxia;. psoriasis, previous suicidal attempts (08/2014, 03/2015); anxiety/depression, previous hospital physicians for DKA,gastroparesis. History of Any Multi-Drug Resistant Organisms: None Reported Past Surgical History: Adenoidectomy Additional Past Surgical History / Comment(s): 2002 Past Anesthesia/Blood Transfusion Reactions: No Reported Reaction Past Psychological History: Anxiety, Depression Smoking Status: Former smoker Past Alcohol Use History: None Reported Past Drug Use History: Marijuana - Past Family History Mother Family Medical History: CVA/TIA Father Family Medical History: Hyperlipidemia, Hypertension Additional Family Medical History / Comment(s): . General Exam Limitations: no limitations Respiratory exam: Present: normal lung sounds bilaterally. Absent: respiratory distress, wheezes, rales, rhonchi, stridor Cardiovascular Exam: Present: regular rate, normal rhythm, normal heart sounds. Absent: systolic murmur, diastolic murmur, rubs, gallop, clicks Skin exam: Present: other (There is a fluctuant, erythematous 1 cm x 1 cm abscess on the posterior surface of the left knee. No redness spreading from the site of the abscess. No streaking redness up the back of the leg.) Course Vital Signs 08/26/17 14:50 Temperature 97.6 F Pulse Rate 84 Respiratory 18 Rate Blood Pressure 157/96 O2 Sat by Pulse 99 Oximetry Medical Decision Making - Medical Decision Making 22-year-old male presents to the emergency department for a chief complaint of abscess on the posterior left knee. Patient states this is been present for about 3 days. Patient is a type I diabetic. The abscess was cleaned with Betadine and lanced with an 18-gauge needle. Exudate was expelled from the abscess. Wound was dressed with antibiotic ointment and gauze. Patient was given a prescription of Keflex. Patient is instructed to keep the area clean and apply warm compresses 4 times per day. He is to return to the emergency Department if he notices worsening symptoms of infection or begins to develop a fever. He is also to return if he notices streaking redness up the back of the leg. Patient is aware of this. Patient will also follow up with dermatology in 1-2 days or primary care. He is to take ibuprofen for pain relief. Disposition Clinical Impression: Abscess Disposition: HOME SELF-CARE Condition: Good Instructions: Abscess (ED) Additional Instructions: Please take antibiotics as directed. If you notice increasing signs of infection or began to develop a fever please return to the emergency department. Please follow-up with your primary care physician or supervisory cbp officer in 1 to 2 days. Please return to the Emergency Department if symptoms worsen or do not improve. Prescriptions: Cephalexin [Keflex] 500 mg PO Q12HR #20 cap Referrals: Wilver Vincent MD [Primary Care Provider] - 1-2 days David Espinoza MD [STAFF PHYSICIAN] - 1-2 days Time of Disposition: 15:13
== END 2017-08-26 15:23 | disposition home or self-care (01) ==
LOC: EC 14:38
DX: L02.416 Cutaneous abscess of left lower limb (principal); E10.9 Type 1 diabetes mellitus without complications; Z87.891 Personal history of nicotine dependence; Z79.4 Long term (current) use of insulin
CPT/HCPCS: 99282

== ENCOUNTER 2017-09-25 12:24 | Observation (INO) | payer OTHER ==
[2017-09-25] MEDS ORDERED: SODIUM CHLORIDE 0.9% 1,000 ML IV STA (13:11)
[2017-09-25] MEDS ORDERED: ONDANSETRON 4 MG/2 ML VIAL IVP STA (13:11)
[2017-09-25] MEDS ORDERED: SODIUM CHLORIDE 0.9% 2,000 ML IV STA (13:11)
[2017-09-25 13:16] LABS: Glucose,Whole Blood >600 mg/dL (75-99)
[2017-09-25 13:35] LABS: Basophils % (A) 1 %; Eosinophils # (A) 0.1 k/uL (0-0.7); Eosinophils % (A) 1 %; HCT 50.7 % (39.0-53.0); HGB 16.9 gm/dL (13.0-17.5); Lymphocytes # (A) 1.3 k/uL (1.0-4.8); Lymphocytes % (A) 22 %; MCH 30.8 pg (25.0-35.0); MCHC 33.4 g/dL (31.0-37.0); MCV 92.1 fL (80.0-100.0); Mean Platelet Volume 7.6; Monocytes # (A) 0.3 k/uL (0-1.0); Monocytes % (A) 5 %; Neutrophils # (A) 4.1 k/uL (1.3-7.7); Neutrophils % (A) 70 %; Platelet Count 361 k/uL (150-450); RDW 12.3 % (11.5-15.5)
[2017-09-25 13:40] LABS: VBG PH 7.21 (7.31-7.41)
[2017-09-25 13:46] LABS: ALT 29 U/L (21-72); AST 20 U/L (17-59); Albumin 4.4 g/dL (3.5-5.0); Alkaline Phosphatase 98 U/L (38-126); Amylase 58 U/L (30-110); Anion Gap 17 mmol/L; Blood Urea Nitrogen 14 mg/dL (9-20); Carbon Dioxide 23 mmol/L (22-30); Chloride 86 mmol/L (98-107); Lipase 138 U/L (23-300); Potassium 4.7 mmol/L (3.5-5.1); Sodium 126 mmol/L (137-145); Total Bilirubin 0.8 mg/dL (0.2-1.3); Total Protein 6.5 g/dL (6.3-8.2)
--- NOTE | 2017-09-25 13:46 | XR ---
EXAMINATION TYPE: XR abdomen acute w cxr DATE OF EXAM: 09/25/2017 COMPARISON: Prior chest x-ray 08/22/2017 and prior abdomen 10/11/2016 HISTORY: Weakness and pain TECHNIQUE: Supine, upright of the abdomen are obtained with a frontal chest on 4 images. FINDINGS: Chest x-ray stable, the heart is small, there is no active cardiopulmonary disease evident . There is no evidence for pneumoperitoneum. Retained fecal debris present throughout much of the dist ribution of the colon. The bowel gas pattern is unremarkable as there is air throughout nondilated small and large bowel. No sizeable air fluid levels. No mass effects are seen. No unusual calcifications. IMPRESSION: Correlate for fecal stasis.
[2017-09-25] MEDS ORDERED: Magnesium Replacement Protocol 1 EACH MISC MISCELLANE PRN (13:53)
[2017-09-25] MEDS ORDERED: INSULIN REGULAR BOLUS (FROM DRIP BAG) IV ONE (13:53)
[2017-09-25] MEDS ORDERED: Potassium Replacement Protocol 1 EACH MISC MISCELLANE PRN (13:53)
[2017-09-25 13:56] LABS: Glucose 966 mg/dL (74-99)
[2017-09-25] MEDS ORDERED: INSULIN REGULAR 100 UNIT in SODIUM CHLORIDE 0.9% 100 ML IV SCH (14:00)
[2017-09-25] MEDS ORDERED: SODIUM CHLORIDE 0.9% 1,000 ML IV SCH (14:00)
[2017-09-25 15:13] LABS: Appearance,Urine Clear (Clear); Bilirubin,Urine Negative (Negative); Blood,Urine Negative (Negative); Color,Urine Colorless; Glucose,Urine (UA) 4+ (Negative); Ketones,Urine Negative (Negative); Leukocyte Esterase,Urine Negative (Negative); Nitrite,Urine Negative (Negative); Protein,Urine Negative (Negative); Specific Gravity,Urine 1.026 (1.001-1.035); Urobilinogen,Urine <2.0 mg/dL (<2.0)
[2017-09-25 16:23] LABS: Glucose,Whole Blood 410 mg/dL (75-99)
[2017-09-25] MEDS ORDERED: SODIUM CHLORIDE 0.9% 1,000 ML IV ONE (16:27)
--- NOTE | 2017-09-25 16:29 | ED ---
General Adult HPI - General Chief complaint: Nausea/Vomiting/Diarrhea Stated complaint: eric santamaria Time Seen by Provider: 09/25/17 13:10 Source: patient Mode of arrival: ambulatory Limitations: no limitations - History of Present Illness Initial comments: 22 years old male with history of for type 1 diabetes forgot to take his insulin for the last 24 hours presents with nausea vomiting abdominal pain and now feeling well. He denies any headaches no neck stiffness no chest pain or shortness of breath he does have a generalized abdominal pain and complaining about down nausea no frequency urgency dysuria review of system is unremarkable otherwise - Related Data Home Medications Medication Instructions Recorded Confirmed INSULIN LISPRO (humaLOG) [humaLOG] See Protocol SQ TID-W/MEALS 08/22/17 09/25/17 Insulin Glargine [Lantus] 22 unit SQ HS 09/25/17 09/25/17 Allergies Allergy/AdvReac Type Severity Reaction Status Date / Time No Known Allergies Allergy Verified 09/25/17 13:27 Review of Systems ROS Statement: Those systems with pertinent positive or pertinent negative responses have been documented in the HPI. ROS Other: All systems not noted in ROS Statement are negative. Past Medical History Past Medical History: Diabetes Mellitus, Skin Disorder Additional Past Medical History / Comment(s): Asthma outgrown by age 9, insulin dependent diabetes diagnosed 2.5 yrs ago October 2013;oral motor apraxia;. psoriasis, previous suicidal attempts (08/2014, 03/2015); anxiety/depression, previous hospital physicians for DKA,gastroparesis. History of Any Multi-Drug Resistant Organisms: None Reported Past Surgical History: Adenoidectomy Additional Past Surgical History / Comment(s): 2002 Past Anesthesia/Blood Transfusion Reactions: No Reported Reaction Past Psychological History: Anxiety, Depression Smoking Status: Former smoker Past Alcohol Use History: None Reported Past Drug Use History: Marijuana - Past Family History Mother Family Medical History: CVA/TIA Father Family Medical History: Hyperlipidemia, Hypertension Additional Family Medical History / Comment(s): . General Exam - General Exam Comments Initial Comments: General: The patient is awake and alert, in obvious distress noticed Skin: Skin is warm and dry and no rashes or lesions are noted. Eye: Pupils are equal, round and reactive to light, extra-ocular movements are intact; there is normal conjunctiva bilaterally. Ears, nose, mouth and throat: There are moist mucous membranes and no oral lesions. Neck: The neck is supple, there is no tenderness or JVD. Cardiovascular: There is a regular rate and rhythm. No murmur, rub or gallop is appreciated. Respiratory: To auscultation bilateral, no wheezing no rhonchi no distress respiratory yancey noticed Gastrointestinal: Focal tenderness noticed, bowel sounds are positive no guarding no rebounds Back: There is no tenderness to palpation in the midline. There is no obvious deformity. Musculoskeletal: Normal ROM, no tenderness, There is no pedal edema. There is no calf tenderness or swelling. No cords were appreciated. Neurological: CN II-XII intact, Cranial nerves III through XII are intact. There are no obvious motor or sensory deficits. Coordination appears grossly intact. Speech is normal. Psychiatric: Cooperative, appropriate mood & affect, normal judgment. Limitations: no limitations Course Vital Signs 09/25/17 09/25/17 12:35 15:01 Temperature 98.0 F Pulse Rate 118 H 112 H Respiratory 20 18 Rate Blood Pressure 138/84 130/84 O2 Sat by Pulse 99 98 Oximetry Medical Decision Making - Lab Data Result diagrams: 09/25/17 13:09 09/25/17 13:09 Lab Results 09/25/17 09/25/17 09/25/17 Range/Units 13:04 13:09 13:09 WBC 6.0 (4.0-11.0) k/uL RBC 5.50 (4.30-5.90) m/uL Hgb 16.9 (13.0-17.5) gm/dL Hct 50.7 (39.0-53.0) % MCV 92.1 (80.0-100.0) fL MCH 30.8 (25.0-35.0) pg MCHC 33.4 (31.0-37.0) g/dL RDW 12.3 (11.5-15.5) % Plt Count 361 (150-450) k/uL Neutrophils % 70 % Lymphocytes % 22 % Monocytes % 5 % Eosinophils % 1 % Basophils % 1 % Neutrophils # 4.1 (1.3-7.7) k/uL Lymphocytes # 1.3 (1.0-4.8) k/uL Monocytes # 0.3 (0-1.0) k/uL Eosinophils # 0.1 (0-0.7) k/uL Basophils # 0.0 (0-0.2) k/uL VBG pH (7.31-7.41) VBG pCO2 (37-51) mmHg VBG HCO3 (24-28) mmol/L Sodium 126 L (137-145) mmol/L Potassium 4.7 (3.5-5.1) mmol/L Chloride 86 L (98-107) mmol/L Carbon Dioxide 23 (22-30) mmol/L Anion Gap 17 mmol/L BUN 14 (9-20) mg/dL Creatinine 0.48 L (0.66-1.25) mg/dL Est GFR (CKD-EPI)AfAm >90 (>60 ml/min/1.73 sqM) Est GFR (CKD-EPI)NonAf >90 (>60 ml/min/1.73 sqM) Glucose 966 H* (74-99) mg/dL POC Glucose (mg/dL) >600 H (75-99) mg/dL POC Glu Screw Remover ID Carmelita Pratt Calcium 9.0 (8.4-10.2) mg/dL Total Bilirubin 0.8 (0.2-1.3) mg/dL AST 20 (17-59) U/L ALT 29 (21-72) U/L Alkaline Phosphatase 98 (38-126) U/L Total Protein 6.5 (6.3-8.2) g/dL Albumin 4.4 (3.5-5.0) g/dL Amylase 58 (30-110) U/L Lipase 138 (23-300) U/L Urine Color Urine Appearance (Clear) Urine pH (5.0-8.0) Ur Specific [place] (1.001-1.035) Urine Protein (Negative) Urine Glucose (UA) (Negative) Urine Ketones (Negative) Urine Blood (Negative) Urine Nitrite (Negative) Urine Bilirubin (Negative) Urine Urobilinogen (<2.0) mg/dL Ur Leukocyte Esterase (Negative) Acetone, Qual Positive (Negative) 09/25/17 09/25/17 09/25/17 Range/Units 13:23 15:09 16:12 WBC (4.0-11.0) k/uL RBC (4.30-5.90) m/uL Hgb (13.0-17.5) gm/dL Hct (39.0-53.0) % MCV (80.0-100.0) fL MCH (25.0-35.0) pg MCHC (31.0-37.0) g/dL RDW (11.5-15.5) % Plt Count (150-450) k/uL Neutrophils % % Lymphocytes % % Monocytes % % Eosinophils % % Basophils % % Neutrophils # (1.3-7.7) k/uL Lymphocytes # (1.0-4.8) k/uL Monocytes # (0-1.0) k/uL Eosinophils # (0-0.7) k/uL Basophils # (0-0.2) k/uL VBG pH 7.21 L (7.31-7.41) VBG pCO2 18 L* (37-51) mmHg VBG HCO3 7 L* (24-28) mmol/L Sodium (137-145) mmol/L Potassium (3.5-5.1) mmol/L Chloride (98-107) mmol/L Carbon Dioxide (22-30) mmol/L Anion Gap mmol/L BUN (9-20) mg/dL Creatinine (0.66-1.25) mg/dL Est GFR (CKD-EPI)AfAm (>60 ml/min/1.73 sqM) Est GFR (CKD-EPI)NonAf (>60 ml/min/1.73 sqM) Glucose (74-99) mg/dL POC Glucose (mg/dL) 410 H (75-99) mg/dL POC Glu Screw Remover ID Carmelita Pratt Calcium (8.4-10.2) mg/dL Total Bilirubin (0.2-1.3) mg/dL AST (17-59) U/L ALT (21-72) U/L Alkaline Phosphatase (38-126) U/L Total Protein (6.3-8.2) g/dL Albumin (3.5-5.0) g/dL Amylase (30-110) U/L Lipase (23-300) U/L Urine Color Colorless Urine Appearance Clear (Clear) Urine pH 5.0 (5.0-8.0) Ur Specific [place] 1.026 (1.001-1.035) Urine Protein Negative (Negative) Urine Glucose (UA) 4+ H (Negative) Urine Ketones Negative (Negative) Urine Blood Negative (Negative) Urine Nitrite Negative (Negative) Urine Bilirubin Negative (Negative) Urine Urobilinogen <2.0 (<2.0) mg/dL Ur Leukocyte Esterase Negative (Negative) Acetone, Qual (Negative) Critical Care Time Total Critical Care Time: 45 Critical Care Time: Reassessment noticed CBC is unremarkable sodium is 126 glucose is 966 bicarb is 7 pH is 7.21 acetones are positive patient was giving about to 2 L of IV fluids we start him on an insulin infusion patient be admitted under Dr. Valenzuela service Dr. Horowitz EBV the intensive Disposition Clinical Impression: Ketoacidosis Disposition: ADMITTED IP TO THIS HOSP Condition: Good Referrals: Brown Valenzuela MD [Primary Care Provider] - 1-2 days
[2017-09-25] MEDS ORDERED: NALOXONE 0.4 MG/ML 1 ML VIAL IV PRN (16:33)
[2017-09-25 17:06] LABS: Glucose,Whole Blood 296 mg/dL (75-99)
[2017-09-25 18:12] LABS: Glucose,Whole Blood 253 mg/dL (75-99)
[2017-09-25 18:37] LABS: Glucose,Whole Blood 197 mg/dL (75-99)
[2017-09-25] MEDS ORDERED: D5-0.45% NACL WITH KCL 20MEQ/L 1,000 ML IV SCH (19:00)
[2017-09-25 19:11] LABS: ALT 22 U/L (21-72); AST 13 U/L (17-59); Albumin 3.4 g/dL (3.5-5.0); Alkaline Phosphatase 58 U/L (38-126); Anion Gap 7 mmol/L; Blood Urea Nitrogen 11 mg/dL (9-20); Calcium 8.1 mg/dL (8.4-10.2); Carbon Dioxide 29 mmol/L (22-30); Chloride 102 mmol/L (98-107); Glucose 143 mg/dL (74-99); Phosphorus 2.8 mg/dL (2.5-4.5); Sodium 138 mmol/L (137-145); Total Bilirubin 0.5 mg/dL (0.2-1.3); Total Protein 5.4 g/dL (6.3-8.2)
--- NOTE | 2017-09-25 19:23 | P.CNPUL ---
History of Present Illness Consult date: 09/25/17 (Critical care consult/ICU management) Reason for consult: other Chief complaint: Uncontrolled diabetes, hyperglycemia, diabetic ketoacidosis History of present illness: 22-year-old male well-known to me with history of insulin-dependent diabetes mellitus forgot to take the dose of nightly insulin yesterday ago and since then he is been having nausea and vomiting and decided to come into emergency department for further evaluation where he was found to have significant metabolic acidosis related diabetic ketoacidosis and very high sugar of 966 patient has been aggressively resuscitated with crystalloid and has been admitted into the hospital on DKA protocol into the ICU, patient denies any seizure-like to a loss of consciousness or hemiparesis, patient also developed denies any chest pain radiation of pain, denies any cough or sputum production currently patient is denying abdominal discomfort and pain Review of Systems All systems: negative Past Medical History Past Medical History: Diabetes Mellitus, Skin Disorder Additional Past Medical History / Comment(s): Asthma outgrown by age 9, insulin dependent diabetes diagnosed 2.5 yrs ago October 2013;oral motor apraxia;. psoriasis, previous suicidal attempts (08/2014, 03/2015); anxiety/depression, previous hospital physicians for DKA,gastroparesis. History of Any Multi-Drug Resistant Organisms: None Reported Past Surgical History: Adenoidectomy Additional Past Surgical History / Comment(s): 2002 Past Anesthesia/Blood Transfusion Reactions: No Reported Reaction Past Psychological History: Anxiety, Depression Smoking Status: Former smoker Past Alcohol Use History: None Reported Past Drug Use History: Marijuana - Past Family History Mother Family Medical History: CVA/TIA Father Family Medical History: Hyperlipidemia, Hypertension Additional Family Medical History / Comment(s): . Medications and Allergies Home Medications Medication Instructions Recorded Confirmed Type INSULIN LISPRO (humaLOG) [humaLOG] See Protocol SQ TID-W/MEALS 08/22/17 History Insulin Glargine [Lantus] 22 unit SQ HS 09/25/17 09/25/17 History Allergies Allergy/AdvReac Type Severity Reaction Status Date / Time No Known Allergies Allergy Verified 09/25/17 13:27 Physical Exam Vitals: Vital Signs Temp Pulse Resp BP Pulse Ox 09/25/17 18:11 87 18 122/90 97 09/25/17 17:44 104 H 16 126/90 99 09/25/17 15:01 112 H 18 130/84 98 09/25/17 12:35 98.0 F 118 H 20 138/84 99 Intake and Output 09/25/17 09/25/17 09/25/17 06:59 14:59 22:59 Intake Total 21.033 Balance 21.033 Intake: Intake, IV Titration 21.033 Amount Insulin Regular 100 unit 21.033 In Sodium Chloride 0.9% 100 ml @ 0.1 UNITS/KG/HR 5.95 mls/hr IV .[id number] [facility] Rx#:[id number] Other: Weight 58.967 kg General: The patient is awake and alert, in obvious distress noticed Skin: Skin is warm and dry and no rashes or lesions are noted. Eye: Pupils are equal, round and reactive to light, extra-ocular movements are intact; there is normal conjunctiva bilaterally. Ears, nose, mouth and throat: There are moist mucous membranes and no oral lesions. Neck: The neck is supple, there is no tenderness or JVD. Cardiovascular: There is a regular rate and rhythm. No murmur, rub or gallop is appreciated. Respiratory: To auscultation bilateral, no wheezing no rhonchi no distress respiratory yancey noticed Gastrointestinal: Focal tenderness noticed, bowel sounds are positive no guarding no rebounds Back: There is no tenderness to palpation in the midline. There is no obvious deformity. Musculoskeletal: Normal ROM, no tenderness, There is no pedal edema. There is no calf tenderness or swelling. No cords were appreciated. Neurological: CN II-XII intact, Cranial nerves III through XII are intact. There are no obvious motor or sensory deficits. Coordination appears grossly intact. Speech is normal. Psychiatric: Cooperative, appropriate mood & affect, normal judgment. Results - Laboratory Findings CBC and BMP: 09/25/17 13:09 09/25/17 13:09 Abnormal lab findings: Abnormal Labs 09/25/17 09/25/17 09/25/17 13:04 13:09 13:23 VBG pH 7.21 L VBG pCO2 18 L* VBG HCO3 7 L* Sodium 126 L Chloride 86 L Creatinine 0.48 L Glucose 966 H* POC Glucose (mg/dL) >600 H Urine Glucose (UA) 09/25/17 09/25/17 09/25/17 15:09 16:12 17:05 VBG pH VBG pCO2 VBG HCO3 Sodium Chloride Creatinine Glucose POC Glucose (mg/dL) 410 H 296 H Urine Glucose (UA) 4+ H 09/25/17 09/25/17 18:10 18:36 VBG pH VBG pCO2 VBG HCO3 Sodium Chloride Creatinine Glucose POC Glucose (mg/dL) 253 H 197 H Urine Glucose (UA) - Diagnostic Findings Additional studies: Abdominal series report reviewed unremarkable, laboratory data reviewed Assessment and Plan Assessment: Diabetic ketoacidosis Severe uncontrolled diabetes Abdominal discomfort and pain with episode of emesis likely related to above Plan: Fluid resuscitation Insulin drip Repeat labs at 8 PM If anion gap is closed and patient is doing well can be moved out of the ICU Time with Patient: Greater than 30
[2017-09-25 19:42] LABS: Glucose,Whole Blood 191 mg/dL (75-99)
[2017-09-25] MEDS: INSULIN ASPART 100 UNIT/ML 1 ML 10 ML VIAL SQ SCH (20:33)
[2017-09-25 20:51] LABS: Glucose,Whole Blood 229 mg/dL (75-99)
[2017-09-25] MEDS ORDERED: INSULIN DETEMIR 100 UNIT/ML 10 ML VIAL SQ SCH (21:00)
[2017-09-26 03:42] LABS: Anion Gap 11 mmol/L; Blood Urea Nitrogen 11 mg/dL (9-20); Calcium 9.2 mg/dL (8.4-10.2); Carbon Dioxide 27 mmol/L (22-30); Chloride 100 mmol/L (98-107); Glucose 127 mg/dL (74-99); Phosphorus 4.7 mg/dL (2.5-4.5); Potassium 4.1 mmol/L (3.5-5.1); Sodium 138 mmol/L (137-145)
[2017-09-26 07:39] LABS: Glucose,Whole Blood 116 mg/dL (75-99)
[2017-09-26] MEDS: INSULIN ASPART 100 UNIT/ML 1 ML 10 ML VIAL SQ SCH ×2 (08:18→12:44)
--- NOTE | 2017-09-26 08:26 | P.PN ---
Subjective Progress Note Date: 09/26/17 Principal diagnosis: Uncontrolled diabetes and hyperglycemia, diabetic ketoacidosis, abdominal pain and discomfort related to above 09/26/2017, patient seen and evaluated examined he is off of insulin drip anion gap is closed patient will be started on oral diet and will be moved out of the ICU 22-year-old male well-known to me with history of insulin-dependent diabetes mellitus forgot to take the dose of nightly insulin yesterday ago and since then he is been having nausea and vomiting and decided to come into emergency department for further evaluation where he was found to have significant metabolic acidosis related diabetic ketoacidosis and very high sugar of 966 patient has been aggressively resuscitated with crystalloid and has been admitted into the hospital on DKA protocol into the ICU, patient denies any seizure-like to a loss of consciousness or hemiparesis, patient also developed denies any chest pain radiation of pain, denies any cough or sputum production currently patient is denying abdominal discomfort and pain Objective - Vital Signs Vital signs: Vital Signs Temp 98.1 F 09/25/17 23:00 Pulse 86 09/25/17 23:00 Resp 16 09/25/17 23:00 BP 143/104 09/25/17 23:00 Pulse Ox 100 09/25/17 23:00 Intake & Output 09/25/17 09/26/17 09/26/17 18:59 06:59 18:59 Intake Total 21.033 Balance 21.033 Weight 58.9 kg 57.5 kg Intake: Intake, IV Titration 21.033 Amount Insulin Regular 100 unit 21.033 In Sodium Chloride 0.9% 100 ml @ 0.1 UNITS/KG/HR 5.95 mls/hr IV .[id number] [facility] Rx#:[id number] Other: Voiding Method Toilet # Voids 2 - Exam General: The patient is awake and alert, in obvious distress noticed Skin: Skin is warm and dry and no rashes or lesions are noted. Eye: Pupils are equal, round and reactive to light, extra-ocular movements are intact; there is normal conjunctiva bilaterally. Ears, nose, mouth and throat: There are moist mucous membranes and no oral lesions. Neck: The neck is supple, there is no tenderness or JVD. Cardiovascular: There is a regular rate and rhythm. No murmur, rub or gallop is appreciated. Respiratory: To auscultation bilateral, no wheezing no rhonchi no distress respiratory yancey noticed Gastrointestinal: Focal tenderness noticed, bowel sounds are positive no guarding no rebounds Back: There is no tenderness to palpation in the midline. There is no obvious deformity. Musculoskeletal: Normal ROM, no tenderness, There is no pedal edema. There is no calf tenderness or swelling. No cords were appreciated. Neurological: CN II-XII intact, Cranial nerves III through XII are intact. There are no obvious motor or sensory deficits. Coordination appears grossly intact. Speech is normal. Psychiatric: Cooperative, appropriate mood & affect, normal judgment. - Labs CBC & Chem 7: 09/25/17 13:09 09/26/17 03:12 Labs: Abnormal Lab Results - Last 24 Hours (Table) 09/25/17 09/25/17 09/25/17 Range/Units 13:04 13:09 13:23 VBG pH 7.21 L (7.31-7.41) VBG pCO2 18 L* (37-51) mmHg VBG HCO3 7 L* (24-28) mmol/L Sodium 126 L (137-145) mmol/L Chloride 86 L (98-107) mmol/L Creatinine 0.48 L (0.66-1.25) mg/dL Glucose 966 H* (74-99) mg/dL POC Glucose (mg/dL) >600 H (75-99) mg/dL Calcium (8.4-10.2) mg/dL Phosphorus (2.5-4.5) mg/dL AST (17-59) U/L Total Protein (6.3-8.2) g/dL Albumin (3.5-5.0) g/dL Urine Glucose (UA) (Negative) 09/25/17 09/25/17 09/25/17 Range/Units 15:09 16:12 17:05 VBG pH (7.31-7.41) VBG pCO2 (37-51) mmHg VBG HCO3 (24-28) mmol/L Sodium (137-145) mmol/L Chloride (98-107) mmol/L Creatinine (0.66-1.25) mg/dL Glucose (74-99) mg/dL POC Glucose (mg/dL) 410 H 296 H (75-99) mg/dL Calcium (8.4-10.2) mg/dL Phosphorus (2.5-4.5) mg/dL AST (17-59) U/L Total Protein (6.3-8.2) g/dL Albumin (3.5-5.0) g/dL Urine Glucose (UA) 4+ H (Negative) 09/25/17 09/25/17 09/25/17 Range/Units 18:10 18:36 18:52 VBG pH (7.31-7.41) VBG pCO2 (37-51) mmHg VBG HCO3 (24-28) mmol/L Sodium (137-145) mmol/L Chloride (98-107) mmol/L Creatinine 0.46 L (0.66-1.25) mg/dL Glucose 143 H (74-99) mg/dL POC Glucose (mg/dL) 253 H 197 H (75-99) mg/dL Calcium 8.1 L (8.4-10.2) mg/dL Phosphorus (2.5-4.5) mg/dL AST 13 L (17-59) U/L Total Protein 5.4 L (6.3-8.2) g/dL Albumin 3.4 L (3.5-5.0) g/dL Urine Glucose (UA) (Negative) 09/25/17 09/25/17 09/26/17 Range/Units 19:40 20:50 03:12 VBG pH (7.31-7.41) VBG pCO2 (37-51) mmHg VBG HCO3 (24-28) mmol/L Sodium (137-145) mmol/L Chloride (98-107) mmol/L Creatinine 0.50 L (0.66-1.25) mg/dL Glucose 127 H (74-99) mg/dL POC Glucose (mg/dL) 191 H 229 H (75-99) mg/dL Calcium (8.4-10.2) mg/dL Phosphorus 4.7 H (2.5-4.5) mg/dL AST (17-59) U/L Total Protein (6.3-8.2) g/dL Albumin (3.5-5.0) g/dL Urine Glucose (UA) (Negative) 09/26/17 Range/Units 07:37 VBG pH (7.31-7.41) VBG pCO2 (37-51) mmHg VBG HCO3 (24-28) mmol/L Sodium (137-145) mmol/L Chloride (98-107) mmol/L Creatinine (0.66-1.25) mg/dL Glucose (74-99) mg/dL POC Glucose (mg/dL) 116 H (75-99) mg/dL Calcium (8.4-10.2) mg/dL Phosphorus (2.5-4.5) mg/dL AST (17-59) U/L Total Protein (6.3-8.2) g/dL Albumin (3.5-5.0) g/dL Urine Glucose (UA) (Negative) Assessment and Plan Assessment: Diabetic ketoacidosis Severe uncontrolled diabetes Abdominal discomfort and pain with episode of emesis likely related to above Plan: Fluid resuscitation Observe off of Insulin drip Repeat labs as needed Noted anion gap is closed and patient is doing well can be moved out of the ICU Time with Patient: Greater than 30
[2017-09-26] MEDS ORDERED: PANTOPRAZOLE 40 MG/10 ML VIAL IV SCH (09:00)
[2017-09-26 10:52] VITALS: BMI 15.8
[2017-09-26 12:24] VITALS: BP 135/91; PULSE 94; RESP 23; TEMP 98.7
[2017-09-26 12:24] LABS: Glucose,Whole Blood 269 mg/dL (75-99)
--- NOTE | 2017-09-26 17:23 | HP ---
HISTORY AND PHYSICAL CHIEF COMPLAINT: Ketoacidosis. HISTORY OF PRESENT ILLNESS: This is the first known admission for this 22-year-old type 1 juvenile onset diabetic, who has poor control. He woke up and recognized a feeling that suggested he was in DKA. He came to the hospital where, indeed, he was. He was admitted for IV fluids, control of his electrolytes balance and his diabetes. REVIEW OF SYSTEMS: He has had no problems with vision or the hearing so far and he has had no chest pain, cough, shortness of breath, heart disease, murmurs, rheumatic fever, hypertension, abdominal pain, hematemesis, melena, hematochezia, jaundice, hematuria, frequency, urgency, renal failure, etc. Past medical history, family history, personal and social history are essentially unremarkable. He takes Humalog sliding scale with Lantus 22 units. He is not allergic to any medication. The only surgeries are T&A. He does not smoke. PHYSICAL EXAMINATION: Blood pressure was 111/64 with a pulse of 106, respirations of 42. He is afebrile. In general, he appeared to be poorly nourished and dehydrated. Head, ears, eyes, nose, mouth, and throat were normal. Neck veins not distended. Thyroid not enlarged. Chest is clear. Cardiac exam demonstrated tachycardia and the abdomen is soft and nontender. Bowel sounds were present. Extremities normal. Neurological is intact. IMPRESSION: 1. Diabetic ketoacidosis. 2. 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 3. Dehydration. PLAN: 1. Bed rest. 2. IV fluids. 3. Treat acidosis and control blood sugars. MMODL / IJN: [id number] /
--- NOTE | 2017-09-26 18:20 | DS ---
DISCHARGE SUMMARY CHIEF COMPLAINT: DKA. HISTORY OF PRESENT ILLNESS AND PHYSICAL EXAM: Details of this man's history and physical can be found in the initial workup. LABORATORY STUDIES: While he was in a hospital, he had laboratory studies, details of which can be found in the laboratory section of chart. COURSE IN HOSPITAL: After admission, he was placed on bedrest, started on intravenous fluids and rehydrated. Blood sugars were brought down and nausea stopped. Acidosis improved. It was felt that he could go home on the and he will go home on his usual activity, diet and medication. He will come into the office for further followup and with an attempt to manage his diabetes better and put him through some basic evaluations such as diabetic damage to the retina, etc. FINAL DIAGNOSES: Diabetic ketoacidosis. OPERATIONS: None. CONSULTATIONS: None. He is improved. MMODL / IJN: [id number] /
[2017-09-27] MEDS ORDERED: PANTOPRAZOLE 40 MG TABLET PO SCH (07:30)
[2017-09-29 11:01] LABS: Hemoglobin A1C 15.1
== END 2017-09-26 13:43 | disposition home or self-care (01) ==
LOC: EC 12:24 → 6ICU 16:33 → INTOOBSV 16:33 → 6ICU 17:50 → UNDODISIN 09-26 13:43
PROVIDERS: ADMIT Family Medicine; ATTEND Family Medicine
DX: E10.10 Type 1 diabetes mellitus with ketoacidosis without coma (principal); E10.43 Type 1 diabetes mellitus with diabetic autonomic (poly)neuropathy; K31.84 Gastroparesis; E86.0 Dehydration; F32.9 Major depressive disorder, single episode, unspecified; F41.9 Anxiety disorder, unspecified; L40.9 Psoriasis, unspecified; Z79.4 Long term (current) use of insulin; Z87.891 Personal history of nicotine dependence; Z91.5 Personal history of self-harm; Z82.49 Family history of ischemic heart disease and other diseases of the circulatory system; Z82.3 Family history of stroke; R48.2 Apraxia; R10.9 Unspecified abdominal pain
CPT/HCPCS: 96365; 96366 ×2; 96375 ×2; 96361; 99291; 36415; 80053; 80048; 82150; 82803; 82009; 83690; 83735; 84100 ×2; 85025; 81003; 83036; 74022; G0378 ×2; J2405; C9113; 96374

== ENCOUNTER 2017-10-17 17:59 | Inpatient (IN) | payer OTHER ==
[2017-10-17 18:23] LABS: Glucose,Whole Blood >600 mg/dL (75-99)
[2017-10-17] MEDS ORDERED: SODIUM CHLORIDE 0.9% 1,000 ML IV ONE ×4 (18:29→19:23)
[2017-10-17 18:56] LABS: HGB 19.1 gm/dL (13.0-17.5); MCH 31.1 pg (25.0-35.0); Mean Platelet Volume 7.2; Platelet Count 527 k/uL (150-450); RBC 6.12 m/uL (4.30-5.90); RDW 12.6 % (11.5-15.5)
--- NOTE | 2017-10-17 18:56 | ED ---
General Adult HPI - General Chief complaint: Recheck/Abnormal Lab/Rx Stated complaint: High Sugar Time Seen by Provider: 10/17/17 18:28 Source: patient, family, RN notes reviewed, old records reviewed Mode of arrival: wheelchair Limitations: no limitations - History of Present Illness Initial comments: 22-year-old history of type 1 diabetes and multiple admissions with DKA presents with lethargy and elevated blood sugar. Patient states he has not been taking his insulin over the past several days because he has not felt well and has not been eating. Denies any significant complaints along the patient is poor historian. He does admit to not taking his insulin. Denies pain complaints. Denies fever. Has had decreased by mouth intake. - Related Data Home Medications Medication Instructions Recorded Confirmed INSULIN LISPRO (humaLOG) [humaLOG] 1 - 7 units SQ ACHS 08/22/17 10/17/17 Insulin Glargine [Lantus] 25 unit SQ HS 09/25/17 10/17/17 FLUoxetine HCL [PROzac] 40 mg PO DAILY 10/17/17 10/17/17 buPROPion HCL [Wellbutrin XL] 300 mg PO DAILY 10/17/17 10/17/17 traZODone HCL 150 mg PO HS 10/17/17 10/17/17 Allergies Allergy/AdvReac Type Severity Reaction Status Date / Time No Known Allergies Allergy Verified 10/17/17 18:47 Review of Systems ROS Statement: Those systems with pertinent positive or pertinent negative responses have been documented in the HPI. ROS Other: All systems not noted in ROS Statement are negative. Past Medical History Past Medical History: Asthma, Diabetes Mellitus, Skin Disorder Additional Past Medical History / Comment(s): , insulin dependent diabetes oral motor apraxia;. psoriasis, previous suicidal attempts anxiety/depression, previous hospital physicians for DKA,gastroparesis. History of Any Multi-Drug Resistant Organisms: None Reported Past Surgical History: Adenoidectomy Additional Past Surgical History / Comment(s): 2002 Past Anesthesia/Blood Transfusion Reactions: No Reported Reaction Past Psychological History: Anxiety, Depression Smoking Status: Former smoker Past Alcohol Use History: None Reported Past Drug Use History: Marijuana - Past Family History Mother Family Medical History: CVA/TIA Father Family Medical History: Hyperlipidemia, Hypertension Additional Family Medical History / Comment(s): . General Exam Limitations: no limitations General appearance: lethargic Head exam: Present: atraumatic, normocephalic Eye exam: Present: normal appearance, PERRL ENT exam: Present: mucous membranes dry Neck exam: Present: normal inspection. Absent: tenderness, meningismus Respiratory exam: Present: normal lung sounds bilaterally, other (Tachypnea) Cardiovascular Exam: Present: normal rhythm, tachycardia GI/Abdominal exam: Present: soft. Absent: distended, tenderness, guarding Extremities exam: Present: normal inspection, full ROM Neurological exam: Present: alert, oriented X3, CN II-XII intact. Absent: motor sensory deficit Psychiatric exam: Present: depressed Skin exam: Present: warm, dry, intact. Absent: cyanosis, diaphoretic Course Vital Signs 10/17/17 10/17/17 18:17 19:28 Temperature 97.3 F L 97 F L Pulse Rate 139 H 124 H Respiratory 24 22 Rate Blood Pressure 112/63 121/63 O2 Sat by Pulse 94 L 100 Oximetry EKG Findings - EKG Comments: EKG Findings:: EKG: Sinus tachycardia right atrial enlargement, right axis deviation, pulmonary disease pattern, incomplete right bundle, rate of 136, MD interval 116, QRS duration 94, QTC 478 Medical Decision Making - Medical Decision Making 22-year-old history of type 1 diabetes and DKA. Patient has not been taking his insulin for unknown reason over the past several days. He presents in severe distress tachycardic, tachypneic. 2 IVs are established. He receives 2 L normal saline bolus awaiting laboratory studies. White blood cell count elevated 44,000, unknown if this is secondary to DKA or infection. Hemoglobin is severely concentrated at 19. PH 6.97 on venous blood gas. CO2 is nondetectable. Anion gap is unable to be calculated. Potassium is 5.4 which is slightly elevated. Creatinine 2.6 consistent with acute renal failure. Glucose 9024. Lactic acid 7.7 secondary to profound dehydration. He is acetone positive. Urinalysis is pending. Patient is in severe DKA, he receives 4 L normal saline bolus in the emergency department, he started on an insulin infusion. He will be admitted to the ICU. Case discussed with Dr. Gonzalez will accept the patient to the ICU. Patient will be admitted under Dr. Valenzuela's service. - Lab Data Result diagrams: 10/17/17 18:37 10/17/17 18:37 Lab Results 10/17/17 10/17/17 10/17/17 Range/Units 18:21 18:37 18:37 WBC 44.0 H* (4.0-11.0) k/uL RBC 6.12 H (4.30-5.90) m/uL Hgb 19.1 H (13.0-17.5) gm/dL Hct 59.5 H (39.0-53.0) % MCV 97.1 D (80.0-100.0) fL MCH 31.1 (25.0-35.0) pg MCHC 32.0 (31.0-37.0) g/dL RDW 12.6 (11.5-15.5) % Plt Count 527 H (150-450) k/uL Neutrophils % (Manual) 73 % Band Neutrophils % 3 % Lymphocytes % (Manual) 14 % Monocytes % (Manual) 10 % Metamyelocytes % 1 % Myelocytes % 1 % Neutrophils # (Manual) 33.40 H (1.3-7.7) k/uL Lymphocytes # (Manual) 6.16 H (1.0-4.8) k/uL Monocytes # (Manual) 4.40 H (0-1.0) k/uL Metamyelocytes # (Man) 0.44 H (0) k/uL Myelocytes # (Manual) 0.44 H (0) k/uL Nucleated RBCs 0 (0-0) /100 WBC Polychromasia Present Poikilocytosis (manual Present VBG pH (7.31-7.41) VBG pCO2 (37-51) mmHg VBG HCO3 (24-28) mmol/L Sodium 136 L (137-145) mmol/L Potassium 5.4 H (3.5-5.1) mmol/L Chloride 84 L (98-107) mmol/L Carbon Dioxide <5 L* (22-30) mmol/L Anion Gap mmol/L BUN 39 H (9-20) mg/dL Creatinine 2.60 H (0.66-1.25) mg/dL Est GFR (CKD-EPI)AfAm 39 (>60 ml/min/1.73 sqM) Est GFR (CKD-EPI)NonAf 34 (>60 ml/min/1.73 sqM) Glucose 924 H* (74-99) mg/dL POC Glucose (mg/dL) >600 H (75-99) mg/dL POC Glu Special Education Professional ID Valerie Jones Plasma Lactic Acid Len (0.7-2.0) mmol/L Calcium 9.7 (8.4-10.2) mg/dL Total Bilirubin 0.6 (0.2-1.3) mg/dL AST 23 (17-59) U/L ALT 22 (21-72) U/L Alkaline Phosphatase 98 (38-126) U/L Total Protein 7.6 (6.3-8.2) g/dL Albumin 5.3 H (3.5-5.0) g/dL Acetone, Qual Positive (Negative) 10/17/17 10/17/17 10/17/17 Range/Units 18:48 18:48 19:22 WBC (4.0-11.0) k/uL RBC (4.30-5.90) m/uL Hgb (13.0-17.5) gm/dL Hct (39.0-53.0) % MCV (80.0-100.0) fL MCH (25.0-35.0) pg MCHC (31.0-37.0) g/dL RDW (11.5-15.5) % Plt Count (150-450) k/uL Neutrophils % (Manual) % Band Neutrophils % % Lymphocytes % (Manual) % Monocytes % (Manual) % Metamyelocytes % % Myelocytes % % Neutrophils # (Manual) (1.3-7.7) k/uL Lymphocytes # (Manual) (1.0-4.8) k/uL Monocytes # (Manual) (0-1.0) k/uL Metamyelocytes # (Man) (0) k/uL Myelocytes # (Manual) (0) k/uL Nucleated RBCs (0-0) /100 WBC Polychromasia Poikilocytosis (manual VBG pH 6.97 L* (7.31-7.41) VBG pCO2 22 L (37-51) mmHg VBG HCO3 5 L* (24-28) mmol/L Sodium (137-145) mmol/L Potassium (3.5-5.1) mmol/L Chloride (98-107) mmol/L Carbon Dioxide (22-30) mmol/L Anion Gap mmol/L BUN (9-20) mg/dL Creatinine (0.66-1.25) mg/dL Est GFR (CKD-EPI)AfAm (>60 ml/min/1.73 sqM) Est GFR (CKD-EPI)NonAf (>60 ml/min/1.73 sqM) Glucose (74-99) mg/dL POC Glucose (mg/dL) >600 H (75-99) mg/dL POC Glu Special Education Professional ID Zafar Lopez Plasma Lactic Acid Len 7.7 H* (0.7-2.0) mmol/L Calcium (8.4-10.2) mg/dL Total Bilirubin (0.2-1.3) mg/dL AST (17-59) U/L ALT (21-72) U/L Alkaline Phosphatase (38-126) U/L Total Protein (6.3-8.2) g/dL Albumin (3.5-5.0) g/dL Acetone, Qual (Negative) Critical Care Time Critical Care Time: Yes Total Critical Care Time: 35 Disposition Clinical Impression: DKA (diabetic ketoacidoses), Dehydration, Metabolic acidosis, Tachycardia Disposition: ADMITTED IP TO THIS [facility] Condition: Serious Is patient prescribed a controlled substance at d/c from ED?: No Referrals: Brown Valenzuela MD [Primary Care Provider] - 1-2 days Decision to Admit Reason: Admit from EC Decision Date: 10/17/17 Decision Time: 19:45
[2017-10-17 18:58] LABS: HCT 59.5 % (39.0-53.0); MCV 97.1 fL (80.0-100.0)
[2017-10-17 19:08] LABS: ALT 22 U/L (21-72); AST 23 U/L (17-59); Albumin 5.3 g/dL (3.5-5.0); Alkaline Phosphatase 98 U/L (38-126); Blood Urea Nitrogen 39 mg/dL (9-20); Calcium 9.7 mg/dL (8.4-10.2); Chloride 84 mmol/L (98-107); Potassium 5.4 mmol/L (3.5-5.1); Sodium 136 mmol/L (137-145); Total Bilirubin 0.6 mg/dL (0.2-1.3); Total Protein 7.6 g/dL (6.3-8.2)
[2017-10-17 19:11] LABS: VBG PH 6.97 (7.31-7.41)
[2017-10-17 19:19] LABS: Metamyelocytes # (M) 0.44 k/uL (0); Metamyelocytes % 1 %; Myelocytes # (M) 0.44 k/uL (0); Myelocytes % 1 %; Nucleated Red Blood Cells 0 /100 WBC (0-0)
[2017-10-17 19:20] LABS: Band Neutrophils % 3 %; Lymphocytes # (M) 6.16 k/uL (1.0-4.8); Neutrophils % (M) 73 %; Total Cells Counted 200
[2017-10-17 19:21] LABS: Poikilocytosis (M) Present; Polychromasia Present
[2017-10-17 19:22] LABS: Glucose 924 mg/dL (74-99)
[2017-10-17 19:23] LABS: Carbon Dioxide <5 mmol/L (22-30)
[2017-10-17] MEDS ORDERED: INSULIN REGULAR BOLUS (FROM DRIP BAG) IV ONE (19:25)
[2017-10-17 19:26] LABS: Glucose,Whole Blood >600 mg/dL (75-99)
[2017-10-17] MEDS: INSULIN REGULAR 100 UNIT in SODIUM CHLORIDE 0.9% 100 ML IV SCH (20:00)
[2017-10-17 20:09] LABS: Appearance,Urine Clear (Clear); Bilirubin,Urine Negative (Negative); Blood,Urine Negative (Negative); Color,Urine Light Yellow; Glucose,Urine (UA) 4+ (Negative); Leukocyte Esterase,Urine Negative (Negative); Nitrite,Urine Negative (Negative); Protein,Urine Trace (Negative); Specific Gravity,Urine 1.018 (1.001-1.035); Urobilinogen,Urine <2.0 mg/dL (<2.0)
[2017-10-17 20:30] LABS: Blood Urea Nitrogen 34 mg/dL (9-20); Chloride 102 mmol/L (98-107); Potassium 5.3 mmol/L (3.5-5.1); Sodium 140 mmol/L (137-145)
[2017-10-17 20:31] LABS: Ketones,Urine 4+ (Negative)
[2017-10-17 20:44] LABS: Glucose,Whole Blood >600 mg/dL (75-99)
[2017-10-17 20:53] LABS: Phosphorus 8.6 mg/dL (2.5-4.5)
[2017-10-17 20:54] LABS: Carbon Dioxide <5 mmol/L (22-30); Glucose 676 mg/dL (74-99)
[2017-10-17] MEDS: SODIUM CHLORIDE 0.9% 1,000 ML IV SCH (20:56)
[2017-10-17 21:42] LABS: Glucose,Whole Blood 569 mg/dL (75-99)
[2017-10-17] MEDS ORDERED: Magnesium Replacement Protocol 1 EACH MISC MISCELLANE PRN (22:26)
[2017-10-17 22:30] LABS: Glucose,Whole Blood 426 mg/dL (75-99)
[2017-10-17] MEDS ORDERED: LISINOPRIL 10 MG TAB PO SCH (22:30)
[2017-10-17 23:53] LABS: Glucose,Whole Blood 383 mg/dL (75-99)
[2017-10-17] MEDS: traZODone HCL 50 MG TAB PO SCH (23:59)
[2017-10-18 00:40] LABS: Anion Gap 21 mmol/L; Blood Urea Nitrogen 29 mg/dL (9-20); Carbon Dioxide 11 mmol/L (22-30); Chloride 102 mmol/L (98-107); Glucose 270 mg/dL (74-99); Phosphorus 2.5 mg/dL (2.5-4.5); Potassium 4.3 mmol/L (3.5-5.1); Sodium 134 mmol/L (137-145)
[2017-10-18 00:57] LABS: Glucose,Whole Blood 264 mg/dL (75-99)
[2017-10-18] MEDS ORDERED: D5-0.45% NACL WITH KCL 20MEQ/L 1,000 ML IV SCH (01:00)
[2017-10-18] MEDS: SODIUM CHLORIDE 0.9% 1,000 ML IV SCH (01:07)
[2017-10-18 02:07] LABS: Glucose,Whole Blood 272 mg/dL (75-99)
[2017-10-18] MEDS ORDERED: SODIUM CHLORIDE 0.9% 1,000 ML IV ONE (02:11)
[2017-10-18 03:00] LABS: Glucose,Whole Blood 275 mg/dL (75-99)
[2017-10-18 03:55] LABS: Glucose,Whole Blood 226 mg/dL (75-99)
[2017-10-18] MEDS: INSULIN REGULAR 100 UNIT in SODIUM CHLORIDE 0.9% 100 ML IV SCH (05:00)
[2017-10-18 05:13] LABS: Glucose,Whole Blood 174 mg/dL (75-99)
[2017-10-18 05:22] LABS: Basophils % (A) 0 %; Eosinophils % (A) 0 %; HCT 38.4 % (39.0-53.0); Lymphocytes # (A) 3.4 k/uL (1.0-4.8); Lymphocytes % (A) 16 %; MCH 31.7 pg (25.0-35.0); MCHC 35.8 g/dL (31.0-37.0); Mean Platelet Volume 6.1; Monocytes % (A) 5 %; Neutrophils # (A) 16.1 k/uL (1.3-7.7); Neutrophils % (A) 78 %; Platelet Count 293 k/uL (150-450); RBC 4.33 m/uL (4.30-5.90); RDW 12.9 % (11.5-15.5); WBC 20.7 k/uL (4.0-11.0)
[2017-10-18 05:27] LABS: HGB 13.7 gm/dL (13.0-17.5); MCV 88.6 fL (80.0-100.0)
[2017-10-18 05:30] LABS: Anion Gap 13 mmol/L; Blood Urea Nitrogen 26 mg/dL (9-20); Calcium 7.9 mg/dL (8.4-10.2); Carbon Dioxide 17 mmol/L (22-30); Chloride 106 mmol/L (98-107); Cholesterol 142 mg/dL (<200); Glucose 162 mg/dL (74-99); HDL Cholesterol 28 mg/dL (40-60); LDL Cholesterol,Calculated 100 mg/dL (0-99); Magnesium 1.7 mg/dL (1.6-2.3); Phosphorus 1.9 mg/dL (2.5-4.5); Potassium 3.9 mmol/L (3.5-5.1); Sodium 136 mmol/L (137-145); Triglycerides 70 mg/dL (<150)
[2017-10-18 05:59] LABS: Glucose,Whole Blood 141 mg/dL (75-99)
[2017-10-18] MEDS: POTASSIUM PHOSPHATE 10 MMOL in SODIUM CHLORIDE 0.9% 250 ML IV SCH ×2 (06:00→08:17)
[2017-10-18] MEDS ORDERED: POTASSIUM CHLORIDE ER 20 MEQ TAB.ER PO SCH (06:00)
[2017-10-18] MEDS: MAGNESIUM SULFATE-D5W PMX 1 GM in DEXTROSE/WATER 1 100ML.BAG IVPB SCH ×2 (06:21→08:04)
[2017-10-18 06:55] LABS: Glucose,Whole Blood 119 mg/dL (75-99)
[2017-10-18 08:02] LABS: Glucose,Whole Blood 130 mg/dL (75-99)
[2017-10-18] MEDS: ASPIRIN 81 MG PO SCH (08:26)
[2017-10-18] MEDS: buPROPion XL 300 MG TAB.ER.24H PO SCH (08:26)
[2017-10-18] MEDS: ATORVASTATIN 10 MG TAB PO SCH (08:26)
[2017-10-18] MEDS: FLUoxetine HCL 20 MG CAP PO SCH (08:26)
[2017-10-18 08:45] LABS: Anion Gap 10 mmol/L; Blood Urea Nitrogen 22 mg/dL (9-20); Calcium 8.1 mg/dL (8.4-10.2); Carbon Dioxide 20 mmol/L (22-30); Chloride 106 mmol/L (98-107); Glucose 115 mg/dL (74-99); Magnesium 2.2 mg/dL (1.6-2.3); Phosphorus 2.7 mg/dL (2.5-4.5); Sodium 136 mmol/L (137-145)
[2017-10-18 09:04] LABS: Glucose,Whole Blood 122 mg/dL (75-99)
--- NOTE | 2017-10-18 09:26 | P.CNPUL ---
History of Present Illness Consult date: 10/18/17 Requesting physician: Brown Valenzuela Reason for consult: other (Critical care management) Chief complaint: Lethargy, high blood sugars History of present illness: This is a pleasant 22-year-old gentleman who follows with Dr. Lana orozco as his primary care physician. He has a history of anxiety/depression, diabetes mellitus, type I. He is on Lantus at 25 units subcutaneous daily at bedtime with Humalog insulin scale. He presented to the emergency room yesterday by family members as he was found to be quite lethargic and had elevated blood sugars. He states he had not been eating well the last several days and had not been taking his insulin. His presenting blood glucose level was 924, bicarb less than 5, unable to calculate the anion gap, potassium 5.4. Acetone positive. Urinalysis with 4+ glucose 4+ ketones. Creatinine White count 44, hemoglobin 19.1, platelet count 527,000. Creatinine 2.60. He was initiated on the DKA protocol and transferred to the intensive care unit. He is seen there today in consultation. He is currently awake and alert in no acute distress. He has been admitted before for DKA. He has had some issues with noncompliance and anxiety/depression. He is currently on room air with O2 saturations greater than 92%. His current IV is D5.45 with 20 of KCl at 150 MLS per hour. His insulin drip at 2.9 units per hour. Most recent lab results reveal blood glucose 122, bicarb 20, anion gap 10, potassium 4.0, creatinine 0.55. He is feeling quite a bit better today as compared to yesterday. He is currently just taking sips of water and his a.m. medications. No nausea or vomiting. Review of Systems Constitutional: Reports lethargy, Reports malaise, Reports poor appetite, Reports weakness Eyes: denies blurred vision, denies decreased vision Ears, nose, mouth and throat: Denies headache, Denies sore throat Cardiovascular: Denies chest pain, Denies shortness of breath Respiratory: Denies cough Gastrointestinal: Reports nausea Genitourinary: Reports as per HPI Musculoskeletal: Denies myalgias Integumentary: Denies pruritus, Denies rash Neurological: Denies numbness, Denies weakness Psychiatric: Reports depression Endocrine: Reports high blood sugars, Reports polydipsia, Reports polyuria Hematologic/Lymphatic: Reports as per HPI Allergic/Immunologic: Reports as per HPI Past Medical History Past Medical History: Asthma, Diabetes Mellitus, Skin Disorder Additional Past Medical History / Comment(s): , insulin dependent diabetes oral motor apraxia;. psoriasis, previous suicidal attempts anxiety/depression, previous hospital physicians for DKA,gastroparesis. History of Any Multi-Drug Resistant Organisms: None Reported Past Surgical History: Adenoidectomy Additional Past Surgical History / Comment(s): 2002 Past Anesthesia/Blood Transfusion Reactions: No Reported Reaction Smoking Status: Former smoker - Past Family History Mother Family Medical History: CVA/TIA Father Family Medical History: Hyperlipidemia, Hypertension Additional Family Medical History / Comment(s): . Medications and Allergies Home Medications Medication Instructions Recorded Confirmed Type INSULIN LISPRO (humaLOG) [humaLOG] 1 - 7 units SQ [facility] 08/22/17 10/17/17 History Insulin Glargine [Lantus] 25 unit SQ HS 09/25/17 10/17/17 History FLUoxetine HCL [PROzac] 40 mg PO DAILY 10/17/17 10/17/17 History buPROPion HCL [Wellbutrin XL] 300 mg PO DAILY 10/17/17 10/17/17 History traZODone HCL 150 mg PO HS 10/17/17 10/17/17 History Allergies Allergy/AdvReac Type Severity Reaction Status Date / Time No Known Allergies Allergy Verified 10/17/17 18:47 Physical Exam Vitals: Vital Signs Temp Pulse Resp BP Pulse Ox 10/18/17 08:00 98.3 F 117 H 15 93/45 94 L 10/18/17 07:00 115 H 15 98/53 95 10/18/17 06:30 119 H 12 95/52 96 10/18/17 06:00 120 H 11 L 95/52 97 10/18/17 05:30 116 H 16 96/51 95 10/18/17 05:00 122 H 16 96/51 96 10/18/17 04:30 107 H 15 81/44 97 10/18/17 04:00 111 H 17 81/44 97 10/18/17 03:30 125 H 18 86/41 100 10/18/17 03:00 110 H 17 81/49 99 10/18/17 02:30 114 H 16 77/39 99 10/18/17 02:00 97.8 F 123 H 18 62/40 98 10/18/17 01:30 130 H 12 78/43 98 10/18/17 01:00 125 H 21 76/36 96 10/18/17 00:30 123 H 18 100/51 96 10/18/17 00:05 116 H 20 133/78 97 10/18/17 00:00 97.8 F 114 H 17 133/78 96 10/17/17 23:30 110 H 18 133/85 97 10/17/17 23:00 105 H 18 140/93 100 10/17/17 22:30 121 H 12 140/90 97 10/17/17 22:00 111 H 17 137/93 99 10/17/17 21:50 110 H 18 138/93 100 10/17/17 21:40 111 H 15 142/90 100 10/17/17 21:00 98.5 F 119 H 16 142/90 100 10/17/17 20:50 119 H 17 100 10/17/17 20:43 100 10/17/17 20:00 120 H 20 119/72 98 10/17/17 19:28 97 F L 124 H 22 121/63 100 10/17/17 18:17 97.3 F L 139 H 24 112/63 94 L Intake and Output 10/17/17 10/18/17 10/18/17 22:59 06:59 14:59 Intake Total 1996.991 2036.222 3.142 Output Total 700 1000 Balance 779.707 3151.222 3.142 Intake: IV 400 2350 D5-0.45% NaCl with KCl 600 20Meq/l 1,000 ml @ 150 mls/hr IV .Q6H40M [facility] Rx# :[id number] Sodium Chloride 0.9% 1, 400 750 000 ml @ 200 mls/hr IV . Q5H [facility] Rx#:[id number] Sodium Chloride 0.9% 1, 1000 000 ml @ 999 mls/hr IV . Q1H1M ONE Rx#:[id number] Intake, IV Titration 17.695 82.222 3.142 Amount Insulin Regular 100 unit 17.695 82.222 3.142 In Sodium Chloride 0.9% 100 ml @ 0.1 UNITS/KG/HR 5.72 mls/hr IV .[id number] YAEL Rx#:[id number] Oral 900 Output: Urine 700 1000 Other: Voiding Method Urinal Weight 56.699 kg 57.4 kg - Constitutional General appearance: thin - EENT Eyes: PERRLA ENT: hearing grossly normal Ears: bilateral: normal - Neck Carotids: bilateral: upstroke normal Thyroid: bilateral: normal size - Respiratory Respiratory: bilateral: CTA - Cardiovascular Rhythm: regular Heart sounds: normal: S1, S2 - Gastrointestinal General gastrointestinal: decreased bowel sounds - Integumentary Integumentary: normal turgor - Neurologic Neurologic: CNII-XII intact - Musculoskeletal Musculoskeletal: gait normal - Psychiatric Psychiatric: A&O x's 3, appropriate affect, intact judgment & insight Results - Laboratory Findings CBC and BMP: 10/18/17 04:03 10/18/17 08:18 Abnormal lab findings: Abnormal Labs 10/17/17 10/17/17 10/17/17 18:21 18:37 18:37 WBC 44.0 H* RBC 6.12 H Hgb 19.1 H Hct 59.5 H Plt Count 527 H Neutrophils # Neutrophils # (Manual) 33.40 H Lymphocytes # (Manual) 6.16 H Monocytes # (Manual) 4.40 H Metamyelocytes # (Man) 0.44 H Myelocytes # (Manual) 0.44 H VBG pH VBG pCO2 VBG HCO3 Sodium 136 L Potassium 5.4 H Chloride 84 L Carbon Dioxide <5 L* BUN 39 H Creatinine 2.60 H Glucose 924 H* POC Glucose (mg/dL) >600 H Plasma Lactic Acid Len Calcium Phosphorus Albumin 5.3 H LDL Cholesterol, Calc HDL Cholesterol Urine Protein Urine Glucose (UA) Urine Ketones 10/17/17 10/17/17 10/17/17 18:48 18:48 19:22 WBC RBC Hgb Hct Plt Count Neutrophils # Neutrophils # (Manual) Lymphocytes # (Manual) Monocytes # (Manual) Metamyelocytes # (Man) Myelocytes # (Manual) VBG pH 6.97 L* VBG pCO2 22 L VBG HCO3 5 L* Sodium Potassium Chloride Carbon Dioxide BUN Creatinine Glucose POC Glucose (mg/dL) >600 H Plasma Lactic Acid Len 7.7 H* Calcium Phosphorus Albumin LDL Cholesterol, Calc HDL Cholesterol Urine Protein Urine Glucose (UA) Urine Ketones 05/10/17/17 10/17/17 19:40 19:59 20:43 WBC RBC Hgb Hct Plt Count Neutrophils # Neutrophils # (Manual) Lymphocytes # (Manual) Monocytes # (Manual) Metamyelocytes # (Man) Myelocytes # (Manual) VBG pH VBG pCO2 VBG HCO3 Sodium Potassium 5.3 H Chloride Carbon Dioxide <5 L* BUN 34 H Creatinine 1.70 H Glucose 676 H* POC Glucose (mg/dL) >600 H Plasma Lactic Acid Len Calcium Phosphorus 8.6 H* Albumin LDL Cholesterol, Calc HDL Cholesterol Urine Protein Trace H Urine Glucose (UA) 4+ H Urine Ketones 4+ H 10/17/17 10/17/17 10/17/17 21:40 22:29 23:52 WBC RBC Hgb Hct Plt Count Neutrophils # Neutrophils # (Manual) Lymphocytes # (Manual) Monocytes # (Manual) Metamyelocytes # (Man) Myelocytes # (Manual) VBG pH VBG pCO2 VBG HCO3 Sodium Potassium Chloride Carbon Dioxide BUN Creatinine Glucose POC Glucose (mg/dL) 569 H 426 H 383 H Plasma Lactic Acid Len Calcium Phosphorus Albumin LDL Cholesterol, Calc HDL Cholesterol Urine Protein Urine Glucose (UA) Urine Ketones 10/18/17 10/18/17 10/18/17 00:18 00:56 02:05 WBC RBC Hgb Hct Plt Count Neutrophils # Neutrophils # (Manual) Lymphocytes # (Manual) Monocytes # (Manual) Metamyelocytes # (Man) Myelocytes # (Manual) VBG pH VBG pCO2 VBG HCO3 Sodium 134 L Potassium Chloride Carbon Dioxide 11 L BUN 29 H Creatinine Glucose 270 H POC Glucose (mg/dL) 264 H 272 H Plasma Lactic Acid Len Calcium Phosphorus Albumin LDL Cholesterol, Calc HDL Cholesterol Urine Protein Urine Glucose (UA) Urine Ketones 10/18/17 10/18/17 10/18/17 02:59 03:53 04:03 WBC RBC Hgb Hct Plt Count Neutrophils # Neutrophils # (Manual) Lymphocytes # (Manual) Monocytes # (Manual) Metamyelocytes # (Man) Myelocytes # (Manual) VBG pH VBG pCO2 VBG HCO3 Sodium 136 L Potassium Chloride Carbon Dioxide 17 L BUN 26 H Creatinine 0.64 L Glucose 162 H POC Glucose (mg/dL) 275 H 226 H Plasma Lactic Acid Len Calcium 7.9 L Phosphorus 1.9 L Albumin LDL Cholesterol, Calc 100 H HDL Cholesterol 28 L Urine Protein Urine Glucose (UA) Urine Ketones 10/18/17 10/18/17 10/18/17 04:03 05:11 05:57 WBC 20.7 H RBC Hgb Hct 38.4 L Plt Count Neutrophils # 16.1 H Neutrophils # (Manual) Lymphocytes # (Manual) Monocytes # (Manual) Metamyelocytes # (Man) Myelocytes # (Manual) VBG pH VBG pCO2 VBG HCO3 Sodium Potassium Chloride Carbon Dioxide BUN Creatinine Glucose POC Glucose (mg/dL) 174 H 141 H Plasma Lactic Acid Len Calcium Phosphorus Albumin LDL Cholesterol, Calc HDL Cholesterol Urine Protein Urine Glucose (UA) Urine Ketones 10/18/17 10/18/17 10/18/17 06:54 08:00 08:18 WBC RBC Hgb Hct Plt Count Neutrophils # Neutrophils # (Manual) Lymphocytes # (Manual) Monocytes # (Manual) Metamyelocytes # (Man) Myelocytes # (Manual) VBG pH VBG pCO2 VBG HCO3 Sodium 136 L Potassium Chloride Carbon Dioxide 20 L BUN 22 H Creatinine 0.55 L Glucose 115 H POC Glucose (mg/dL) 119 H 130 H Plasma Lactic Acid Len Calcium 8.1 L Phosphorus Albumin LDL Cholesterol, Calc HDL Cholesterol Urine Protein Urine Glucose (UA) Urine Ketones 10/18/17 09:02 WBC RBC Hgb Hct Plt Count Neutrophils # Neutrophils # (Manual) Lymphocytes # (Manual) Monocytes # (Manual) Metamyelocytes # (Man) Myelocytes # (Manual) VBG pH VBG pCO2 VBG HCO3 Sodium Potassium Chloride Carbon Dioxide BUN Creatinine Glucose POC Glucose (mg/dL) 122 H Plasma Lactic Acid Len Calcium Phosphorus Albumin LDL Cholesterol, Calc HDL Cholesterol Urine Protein Urine Glucose (UA) Urine Ketones Assessment and Plan Assessment: Impression: #1 Acute diabetic ketoacidosis secondary to poor appetite and noncompliance with insulin therapy over the past several days. #2 Acute anion gap metabolic acidosis secondary to above. #3 Hyperkalemia secondary to above, recovered. #4 Acute renal failure with dehydration secondary to above, recovered. #5 Acute leukocytosis secondary to above, improved. #6 History of anxiety/depression with previous history of suicide attempts in the past. #7 History of medication noncompliance. #8 Marijuana use. Plan: The patient was seen and evaluated by Dr. Gonzalez. Will continue to monitor him here closely in the intensive care unit. Continue with the DKA protocol. Insulin drip. Continue with fluid resuscitation. Electrolyte management. Advance his diet as tolerated. He is again educated regarding the importance of medication compliance especially in regards to his multiple DKA episodes. We will continue to follow make further recommendations based on his clinical clinical status. I, the cosigning physician, performed a history & physical examination of the patient. Lungs sounds are clear. Maintaining good O2 saturations in the 90s on room air. I discussed the assessment and plan of care with my nurse practitioner, Jillian Vega. I attest to the above consultation as dictated by her. Time with Patient: Greater than 30
[2017-10-18 10:33] VITALS: RESP 16
[2017-10-18] MEDS ORDERED: NON-FORMULARY DRUG (Insulin Lispro (Humalog) 0 UNITS) SQ PRN (11:25)
[2017-10-18 11:32] LABS: Glucose,Whole Blood 188 mg/dL (75-99)
--- NOTE | 2017-10-18 12:40 | HP ---
HISTORY AND PHYSICAL CHIEF COMPLAINT: Dehydration, nausea, vomiting and DKA. HISTORY OF PRESENT ILLNESS: This is another admission for this 22-year-old gentleman. He came to the emergency room with a blood sugar of over 900 and CO2 was undetectable and anion gap could not be calculated. He does not take care of himself, check his blood sugars or take his insulin properly. REVIEW OF SYSTEMS: Was not obtained because he signed out AGAINST MEDICAL ADVICE before he was seen. Past medical history, family history and social histories are similarly unobtainable. PHYSICAL EXAMINATION: VITAL SIGNS: Blood pressure was 110/50 with a pulse of 110, respirations of 38. He is afebrile. The rest of the exam could not be done because he signed out before he was seen. He was admitted to the hospital with diagnoses of: IMPRESSION: 1. Diabetic ketoacidosis. 2. Dehydration. PLAN: Placed on bedrest, and Intensive Care and on DKA protocol. MMODL / TRAMN: [id number] /
[2017-10-18] MEDS: INSULIN ASPART 100 UNIT/ML 1 ML 10 ML VIAL SQ SCH ×3 (12:41→21:31)
--- NOTE | 2017-10-18 12:42 | DS ---
DISCHARGE SUMMARY CHIEF COMPLAINT: DKA. HISTORY OF PRESENT ILLNESS AND PHYSICAL EXAM: Details of this man's history and physical can be found in the initial workup. LABORATORY STUDIES: While he was in a hospital, laboratory studies were obtained and can be found in the laboratory section of his chart. COURSE IN HOSPITAL: After admission he was placed on bedrest, started on intravenous fluids and DKA protocol. Blood sugars came down and his activity was increased. He was transferred to a regular floor where he immediately signed out AGAINST MEDICAL ADVICE. He was given no discharge prescriptions, instructions, or followup. He will be seen on a p.r.n. basis. FINAL DIAGNOSES: 1. Diabetic ketoacidosis. 2. Uncontrolled type 1 insulin-dependent diabetes mellitus. 3. Noncompliant patient. MMODL / TRAMN: [id number] /
[2017-10-18 13:04] VITALS: BMI 15.7
[2017-10-18 13:44] LABS: Hemoglobin A1C 13.1 % (4.0-6.0)
[2017-10-18 17:29] LABS: Glucose,Whole Blood 298 mg/dL (75-99)
[2017-10-18 20:56] LABS: Glucose,Whole Blood 311 mg/dL (75-99)
[2017-10-18] MEDS ORDERED: INSULIN DETEMIR 100 UNIT/ML 10 ML VIAL SQ SCH (21:00)
[2017-10-18] MEDS ORDERED: NON-FORMULARY DRUG (Trazodone Hcl [Trazodone Hcl] 150 MG) PO SCH (21:00)
[2017-10-18] MEDS: traZODone HCL 50 MG TAB PO SCH (21:31)
[2017-10-18 22:43] LABS: Glucose,Whole Blood 295 mg/dL (75-99)
[2017-10-19 01:23] LABS: Glucose,Whole Blood 274 mg/dL (75-99)
[2017-10-19 06:20] VITALS: BP 109/68; PULSE 100; TEMP 98.5
[2017-10-19 07:10] LABS: Glucose,Whole Blood 132 mg/dL (75-99)
[2017-10-19] MEDS: INSULIN ASPART 100 UNIT/ML 1 ML 10 ML VIAL SQ SCH ×2 (07:28→13:25)
[2017-10-19] MEDS: ASPIRIN 81 MG PO SCH (08:04)
[2017-10-19] MEDS: FLUoxetine HCL 20 MG CAP PO SCH (08:04)
[2017-10-19] MEDS: ATORVASTATIN 10 MG TAB PO SCH (08:04)
[2017-10-19] MEDS: buPROPion XL 300 MG TAB.ER.24H PO SCH (08:04)
[2017-10-19] MEDS ORDERED: buPROPion XL 300 MG TAB.ER.24H PO SCH (09:00)
[2017-10-19] MEDS ORDERED: FLUOXETINE HCL 40 MG PO SCH (09:00)
[2017-10-19 12:10] LABS: Glucose,Whole Blood 257 mg/dL (75-99)
--- NOTE | 2017-10-20 04:56 | DS ---
DISCHARGE SUMMARY ADDENDUM: CHIEF COMPLAINT: DKA. HISTORY OF PRESENT ILLNESS: When the patient was to be seen yesterday, he was not in his bed and the floor staff stated that he had signed himself out. An hour or so later I got a call that he was still there. He will be discharged today on the and go home on his usual activity and medications and be seen in the office in a few days. FINAL DIAGNOSES: 1. Diabetic ketoacidosis. 2. Type 1 insulin-dependent diabetes mellitus. OPERATIONS: None. CONSULTATION: None. He is improved. MMODL / IJN: [id number] /
== END 2017-10-19 14:05 | disposition home or self-care (01) | DRG 638 ==
LOC: EC 17:59 → 6ICU 19:28 → 4MS4W 10-18 11:01
PROVIDERS: ADMIT Family Medicine; ATTEND Family Medicine
DX: E10.10 Type 1 diabetes mellitus with ketoacidosis without coma (principal); N17.9 Acute kidney failure, unspecified; D72.829 Elevated white blood cell count, unspecified; E86.0 Dehydration; E87.5 Hyperkalemia; J45.909 Unspecified asthma, uncomplicated; K31.84 Gastroparesis; Z79.4 Long term (current) use of insulin; Z82.49 Family history of ischemic heart disease and other diseases of the circulatory system; Z87.891 Personal history of nicotine dependence; Z91.14 Patient's other noncompliance with medication regimen; Z91.19 Patient's noncompliance with other medical treatment and regimen; Z91.5 Personal history of self-harm; F41.9 Anxiety disorder, unspecified; F32.9 Major depressive disorder, single episode, unspecified; L40.9 Psoriasis, unspecified; Z82.3 Family history of stroke
CPT/HCPCS: 36415; 80048; 80051; 80053; 80061; 81003; 82009; 82565; 82803; 82947; 83036; 83605; 83735; 84100; 84520; 85025; 87040; 93005; 96360; 99291

== ENCOUNTER 2018-03-08 12:30 | Inpatient (IN) | payer OTHER ==
[2018-03-08] MEDS ORDERED: SODIUM CHLORIDE 0.9% 1,000 ML IV STA (13:11)
--- NOTE | 2018-03-08 13:35 | ED ---
GI Bleed HPI - General Chief complaint: GI Bleed Stated complaint: blood in stool Time Seen by Provider: 03/08/18 12:52 Source: patient, RN notes reviewed Mode of arrival: ambulatory Limitations: no limitations - History of Present Illness Initial comments: This a 22-year-old male presents emergency Department chief complaint of rectal bleeding. Patient states over the last few days she's had blood with his stool. Patient states that he's had more diarrhea in nature. Patient states she does have mild abdominal cramping and pain. Patient states never had any issues with this in the past denies any history of hemorrhoids. Patient denies chest pain, shortness breath, headache or dizziness. Patient denies any fever, chills. Patient states that his blood sugar has been elevated though he has been taking insulin. Patient denies any dysuria or hematuria. - Related Data Home Medications Medication Instructions Recorded Confirmed Insulin Glargine [Lantus] 25 unit SQ HS 09/25/17 03/08/18 traZODone HCL 150 mg PO HS 10/17/17 03/08/18 Insulin Aspart [NovoLOG See Protocol SQ AC-TID 03/08/18 03/08/18 (formulary)] Allergies Allergy/AdvReac Type Severity Reaction Status Date / Time No Known Allergies Allergy Verified 03/08/18 13:35 Review of Systems ROS Statement: Those systems with pertinent positive or pertinent negative responses have been documented in the HPI. ROS Other: All systems not noted in ROS Statement are negative. Past Medical History Past Medical History: Asthma, Diabetes Mellitus, Skin Disorder Additional Past Medical History / Comment(s): , insulin dependent diabetes oral motor apraxia;. psoriasis, previous suicidal attempts anxiety/depression, previous hospital physicians for DKA,gastroparesis. History of Any Multi-Drug Resistant Organisms: None Reported Past Surgical History: Adenoidectomy Additional Past Surgical History / Comment(s): 2002 Past Anesthesia/Blood Transfusion Reactions: No Reported Reaction Past Psychological History: Anxiety, Depression Smoking Status: Former smoker Past Alcohol Use History: None Reported Past Drug Use History: None Reported - Past Family History Mother Family Medical History: CVA/TIA Father Family Medical History: Hyperlipidemia, Hypertension Additional Family Medical History / Comment(s): . General Exam Limitations: no limitations General appearance: alert, in no apparent distress Neck exam: Present: normal inspection. Absent: tenderness, meningismus, lymphadenopathy Respiratory exam: Present: normal lung sounds bilaterally. Absent: respiratory distress, wheezes, rales, rhonchi, stridor Cardiovascular Exam: Present: regular rate, normal rhythm, normal heart sounds. Absent: systolic murmur, diastolic murmur, rubs, gallop, clicks GI/Abdominal exam: Present: soft, tenderness (Mild left lower quadrant), normal bowel sounds. Absent: distended, guarding, rebound, rigid Back exam: Absent: CVA tenderness (R), CVA tenderness (L) Skin exam: Present: warm, dry, intact, normal color. Absent: rash Course Vital Signs 03/08/18 03/08/18 12:50 14:52 Temperature 97.7 F Pulse Rate 107 H 93 Respiratory 20 18 Rate Blood Pressure 120/74 123/90 O2 Sat by Pulse 100 99 Oximetry Medical Decision Making - Lab Data Result diagrams: 03/08/18 13:40 03/08/18 13:40 Lab Results 03/08/18 03/08/18 03/08/18 Range/Units 13:40 13:40 13:40 WBC 4.9 (4.0-11.0) k/uL RBC 5.05 (4.30-5.90) m/uL Hgb 15.9 (13.0-17.5) gm/dL Hct 46.2 (39.0-53.0) % MCV 91.4 (80.0-100.0) fL MCH 31.4 (25.0-35.0) pg MCHC 34.4 (31.0-37.0) g/dL RDW 12.7 (11.5-15.5) % Plt Count 103 L (150-450) k/uL Neutrophils % 53 % Lymphocytes % 37 % Monocytes % 6 % Eosinophils % 1 % Basophils % 1 % Neutrophils # 2.6 (1.3-7.7) k/uL Lymphocytes # 1.8 (1.0-4.8) k/uL Monocytes # 0.3 (0-1.0) k/uL Eosinophils # 0.1 (0-0.7) k/uL Basophils # 0.1 (0-0.2) k/uL Sodium 132 L (137-145) mmol/L Potassium 4.7 (3.5-5.1) mmol/L Chloride 91 L (98-107) mmol/L Carbon Dioxide 22 (22-30) mmol/L Anion Gap 19 mmol/L BUN 13 (9-20) mg/dL Creatinine 0.53 L (0.66-1.25) mg/dL Est GFR (CKD-EPI)AfAm >90 (>60 ml/min/1.73 sqM) Est GFR (CKD-EPI)NonAf >90 (>60 ml/min/1.73 sqM) Glucose 598 H* (74-99) mg/dL Plasma Lactic Acid Len 1.5 (0.7-2.0) mmol/L Calcium 9.8 (8.4-10.2) mg/dL Magnesium 2.0 (1.6-2.3) mg/dL Total Bilirubin 0.9 (0.2-1.3) mg/dL AST 22 (17-59) U/L ALT 37 (21-72) U/L Alkaline Phosphatase 86 (38-126) U/L Total Protein 6.8 (6.3-8.2) g/dL Albumin 4.4 (3.5-5.0) g/dL Lipase 116 (23-300) U/L Urine Color Urine Appearance (Clear) Urine pH (5.0-8.0) Ur Specific [place] (1.001-1.035) Urine Protein (Negative) Urine Glucose (UA) (Negative) Urine Ketones (Negative) Urine Blood (Negative) Urine Nitrite (Negative) Urine Bilirubin (Negative) Urine Urobilinogen (<2.0) mg/dL Ur Leukocyte Esterase (Negative) Acetone, Qual Positive (Negative) 03/08/18 Range/Units 13:40 WBC (4.0-11.0) k/uL RBC (4.30-5.90) m/uL Hgb (13.0-17.5) gm/dL Hct (39.0-53.0) % MCV (80.0-100.0) fL MCH (25.0-35.0) pg MCHC (31.0-37.0) g/dL RDW (11.5-15.5) % Plt Count (150-450) k/uL Neutrophils % % Lymphocytes % % Monocytes % % Eosinophils % % Basophils % % Neutrophils # (1.3-7.7) k/uL Lymphocytes # (1.0-4.8) k/uL Monocytes # (0-1.0) k/uL Eosinophils # (0-0.7) k/uL Basophils # (0-0.2) k/uL Sodium (137-145) mmol/L Potassium (3.5-5.1) mmol/L Chloride (98-107) mmol/L Carbon Dioxide (22-30) mmol/L Anion Gap mmol/L BUN (9-20) mg/dL Creatinine (0.66-1.25) mg/dL Est GFR (CKD-EPI)AfAm (>60 ml/min/1.73 sqM) Est GFR (CKD-EPI)NonAf (>60 ml/min/1.73 sqM) Glucose (74-99) mg/dL Plasma Lactic Acid Len (0.7-2.0) mmol/L Calcium (8.4-10.2) mg/dL Magnesium (1.6-2.3) mg/dL Total Bilirubin (0.2-1.3) mg/dL AST (17-59) U/L ALT (21-72) U/L Alkaline Phosphatase (38-126) U/L Total Protein (6.3-8.2) g/dL Albumin (3.5-5.0) g/dL Lipase (23-300) U/L Urine Color Colorless Urine Appearance Clear (Clear) Urine pH 5.0 (5.0-8.0) Ur Specific [place] 1.030 (1.001-1.035) Urine Protein Negative (Negative) Urine Glucose (UA) 4+ H (Negative) Urine Ketones 2+ H (Negative) Urine Blood Negative (Negative) Urine Nitrite Negative (Negative) Urine Bilirubin Negative (Negative) Urine Urobilinogen <2.0 (<2.0) mg/dL Ur Leukocyte Esterase Negative (Negative) Acetone, Qual (Negative) Disposition Clinical Impression: DKA (diabetic ketoacidoses), GI bleed Disposition: ADMITTED IP TO THIS [facility] Condition: Fair Referrals: Brown Valenzuela MD [Primary Care Provider] - 1-2 days
[2018-03-08 14:02] LABS: Appearance,Urine Clear (Clear); Bilirubin,Urine Negative (Negative); Blood,Urine Negative (Negative); Color,Urine Colorless; Glucose,Urine (UA) 4+ (Negative); Leukocyte Esterase,Urine Negative (Negative); Nitrite,Urine Negative (Negative); Protein,Urine Negative (Negative); Urobilinogen,Urine <2.0 mg/dL (<2.0)
[2018-03-08 14:12] LABS: ALT 37 U/L (21-72); AST 22 U/L (17-59); Albumin 4.4 g/dL (3.5-5.0); Alkaline Phosphatase 86 U/L (38-126); Anion Gap 19 mmol/L; Blood Urea Nitrogen 13 mg/dL (9-20); Calcium 9.8 mg/dL (8.4-10.2); Carbon Dioxide 22 mmol/L (22-30); Chloride 91 mmol/L (98-107); Lipase 116 U/L (23-300); Potassium 4.7 mmol/L (3.5-5.1); Sodium 132 mmol/L (137-145); Total Bilirubin 0.9 mg/dL (0.2-1.3); Total Protein 6.8 g/dL (6.3-8.2)
[2018-03-08 14:15] LABS: Ketones,Urine 2+ (Negative)
[2018-03-08 14:18] LABS: Basophils # (A) 0.1 k/uL (0-0.2); Basophils % (A) 1 %; Eosinophils # (A) 0.1 k/uL (0-0.7); Eosinophils % (A) 1 %; HCT 46.2 % (39.0-53.0); HGB 15.9 gm/dL (13.0-17.5); Lymphocytes # (A) 1.8 k/uL (1.0-4.8); Lymphocytes % (A) 37 %; MCH 31.4 pg (25.0-35.0); MCHC 34.4 g/dL (31.0-37.0); MCV 91.4 fL (80.0-100.0); Mean Platelet Volume 7.6; Monocytes # (A) 0.3 k/uL (0-1.0); Monocytes % (A) 6 %; Neutrophils # (A) 2.6 k/uL (1.3-7.7); Neutrophils % (A) 53 %; Platelet Count 103 k/uL (150-450); RBC 5.05 m/uL (4.30-5.90); RDW 12.7 % (11.5-15.5); WBC 4.9 k/uL (4.0-11.0)
[2018-03-08 14:23] LABS: Glucose 598 mg/dL (74-99)
[2018-03-08] MEDS ORDERED: SODIUM CHLORIDE 0.9% 2,000 ML IV ONE (14:31)
[2018-03-08] MEDS ORDERED: INSULIN REGULAR 100 UNIT in SODIUM CHLORIDE 0.9% 100 ML IV SCH (15:00)
[2018-03-08] MEDS: SODIUM CHLORIDE 0.9% 1,000 ML IV SCH ×2 (16:03→23:09)
[2018-03-08 16:21] LABS: Glucose,Whole Blood 423 mg/dL (75-99)
--- NOTE | 2018-03-08 16:36 | P.HPIM ---
History of Present Illness 22-year-old gentleman came in with complaints of rectal bleeding and diarrhea patient's complaint of rectal bleeding was on Friday his hemoglobin is fairly stable at this point of time patient declined rectal exam to the ER physician and to me. Patient blood sugars are highly elevated does have history of diabetes mellitus unsure of its type in a type II not in significant DKA because of significantly elevated blood sugars and known high noncompliance will admit the patient patient was started on IV insulin which she'll continue once his blood sugars come down will be transitioned to subcutaneous insulin patient appears to be noncompliant with his insulin recommendation extensive counseling was provided. Review of Systems REVIEW OF SYSTEMS: CONSTITUTIONAL: No fever, no malaise, no fatigue. HEENT: No recent visual problems or hearing problems. Denied any sore throat. CARDIOVASCULAR: No chest pain, orthopnea, PND, no palpitations, no syncope. PULMONARY: No shortness of breath, no cough, no hemoptysis. GASTROINTESTINAL: As mentioned in HPI and no significant abdominal pain. NEUROLOGICAL: No headaches, no weakness, no numbness. HEMATOLOGICAL: Denies any bleeding or petechiae. GENITOURINARY: Denies any burning micturition, frequency, or urgency. MUSCULOSKELETAL/RHEUMATOLOGICAL: Denies any joint pain, swelling, or any muscle pain. ENDOCRINE: Denies any polyuria or polydipsia. The rest of the 14-point review of systems is negative. Past Medical History Past Medical History: Asthma, Diabetes Mellitus, Skin Disorder Additional Past Medical History / Comment(s): , insulin dependent diabetes oral motor apraxia;. psoriasis, previous suicidal attempts anxiety/depression, previous hospital physicians for DKA,gastroparesis. History of Any Multi-Drug Resistant Organisms: None Reported Past Surgical History: Adenoidectomy Additional Past Surgical History / Comment(s): 2002 Past Anesthesia/Blood Transfusion Reactions: No Reported Reaction Past Psychological History: Anxiety, Depression Smoking Status: Former smoker Past Alcohol Use History: None Reported Past Drug Use History: None Reported - Past Family History Mother Family Medical History: CVA/TIA Father Family Medical History: Hyperlipidemia, Hypertension Additional Family Medical History / Comment(s): . Medications and Allergies Home Medications Medication Instructions Recorded Confirmed Type Insulin Glargine [Lantus] 25 unit SQ HS 09/25/17 03/08/18 History traZODone HCL 150 mg PO HS 10/17/17 03/08/18 History Insulin Aspart [NovoLOG See Protocol SQ AC-TID 03/08/18 03/08/18 History (formulary)] Allergies Allergy/AdvReac Type Severity Reaction Status Date / Time No Known Allergies Allergy Verified 03/08/18 13:35 Physical Exam Vitals: Vital Signs Temp Pulse Resp BP Pulse Ox 03/08/18 14:52 93 18 123/90 99 03/08/18 12:50 97.7 F 107 H 20 120/74 100 Intake and Output 03/08/18 03/08/18 03/08/18 06:59 14:59 22:59 Other: Weight 63.503 kg PHYSICAL EXAMINATION: GENERAL: The patient is alert and oriented x3, not in any acute distress. Thin built HEENT: Pupils are round and equally reacting to light. EOMI. No scleral icterus. No conjunctival pallor. Normocephalic, atraumatic. No pharyngeal erythema. No thyromegaly. CARDIOVASCULAR: S1 and S2 present. No murmurs, rubs, or gallops. PULMONARY: Chest is clear to auscultation, no wheezing or crackles. ABDOMEN: Soft, nontender, nondistended, normoactive bowel sounds. No palpable organomegaly. MUSCULOSKELETAL: No joint swelling or deformity. EXTREMITIES: No cyanosis, clubbing, or pedal edema. NEUROLOGICAL: Gross neurological examination did not reveal any focal deficits. SKIN: No rashes. Results CBC & Chem 7: 03/08/18 13:40 03/08/18 13:40 Labs: Abnormal Lab Results - Last 24 Hours (Table) 03/08/18 03/08/18 03/08/18 Range/Units 13:40 13:40 13:40 Plt Count 103 L (150-450) k/uL Sodium 132 L (137-145) mmol/L Chloride 91 L (98-107) mmol/L Creatinine 0.53 L (0.66-1.25) mg/dL Glucose 598 H* (74-99) mg/dL POC Glucose (mg/dL) (75-99) mg/dL Urine Glucose (UA) 4+ H (Negative) Urine Ketones 2+ H (Negative) 03/08/18 Range/Units 16:01 Plt Count (150-450) k/uL Sodium (137-145) mmol/L Chloride (98-107) mmol/L Creatinine (0.66-1.25) mg/dL Glucose (74-99) mg/dL POC Glucose (mg/dL) 423 H (75-99) mg/dL Urine Glucose (UA) (Negative) Urine Ketones (Negative) Assessment and Plan Plan: -Highly elevated blood sugars: Not insignificant DKA patient will be started on IV insulin once blood sugars are controlled will be transitioned to regular insulin will be started on IV fluids possibly of discharge tomorrow -Hyponatremia: Pseudohyponatremia from hyperglycemia expected to improve with IV fluids and control of blood sugars -Right red blood per rectum: Unsure of the exact etiology will monitor hemoglobin is 15 presently expected to go down because of IV fluids will monitor for any more bleed clinically here his last blood per rectum was on Friday. -Asthma without any acute exacerbation -Depression
[2018-03-08 17:07] LABS: Glucose,Whole Blood 332 mg/dL (75-99)
[2018-03-08 18:14] LABS: Glucose,Whole Blood 294 mg/dL (75-99)
[2018-03-08] MEDS: D5-0.45% NACL WITH KCL 20MEQ/L 1,000 ML IV SCH (18:18)
[2018-03-08 19:31] LABS: Blood Urea Nitrogen 10 mg/dL (9-20); Carbon Dioxide 26 mmol/L (22-30); Glucose 210 mg/dL (74-99)
[2018-03-08 19:36] LABS: Anion Gap 11 mmol/L; Basophils # (A) 0.1 k/uL (0-0.2); Basophils % (A) 1 %; Chloride 100 mmol/L (98-107); Eosinophils # (A) 0.1 k/uL (0-0.7); Eosinophils % (A) 2 %; HCT 40.2 % (39.0-53.0); HGB 14.1 gm/dL (13.0-17.5); Lymphocytes # (A) 3.3 k/uL (1.0-4.8); Lymphocytes % (A) 44 %; MCHC 35.2 g/dL (31.0-37.0); Mean Platelet Volume 6.4; Monocytes # (A) 0.5 k/uL (0-1.0); Monocytes % (A) 6 %; Neutrophils # (A) 3.4 k/uL (1.3-7.7); Neutrophils % (A) 45 %; Potassium 3.6 mmol/L (3.5-5.1); RBC 4.41 m/uL (4.30-5.90); RDW 12.7 % (11.5-15.5); Sodium 137 mmol/L (137-145); WBC 7.5 k/uL (4.0-11.0)
[2018-03-08 19:37] LABS: Platelet Count 279 k/uL (150-450)
[2018-03-08 19:42] LABS: Glucose,Whole Blood 234 mg/dL (75-99)
[2018-03-08 20:00] LABS: Glucose,Whole Blood 225 mg/dL (75-99)
[2018-03-08 21:04] LABS: Glucose,Whole Blood 190 mg/dL (75-99)
[2018-03-08 22:06] LABS: Glucose,Whole Blood 184 mg/dL (75-99)
[2018-03-08 22:53] LABS: Anion Gap 6 mmol/L; Blood Urea Nitrogen 10 mg/dL (9-20); Calcium 8.2 mg/dL (8.4-10.2); Carbon Dioxide 26 mmol/L (22-30); Chloride 102 mmol/L (98-107); Glucose 167 mg/dL (74-99); Magnesium 1.7 mg/dL (1.6-2.3); Potassium 3.4 mmol/L (3.5-5.1); Sodium 134 mmol/L (137-145)
[2018-03-08] MEDS ORDERED: INSULIN NPH 300 UNIT/3 ML VIAL SQ ONE (23:02)
[2018-03-08 23:15] LABS: Glucose,Whole Blood 152 mg/dL (75-99)
[2018-03-09 00:09] LABS: Glucose,Whole Blood 141 mg/dL (75-99)
[2018-03-09] MEDS: INSULIN DETEMIR 100 UNIT/ML 10 ML VIAL SQ SCH ×2 (00:37→21:54)
[2018-03-09 01:18] LABS: Glucose,Whole Blood 143 mg/dL (75-99)
[2018-03-09 01:53] LABS: Glucose,Whole Blood 131 mg/dL (75-99)
[2018-03-09 03:09] LABS: Glucose,Whole Blood 120 mg/dL (75-99)
[2018-03-09 04:05] LABS: Glucose,Whole Blood 118 mg/dL (75-99)
[2018-03-09] MEDS: SODIUM CHLORIDE 0.9% 1,000 ML IV SCH ×2 (04:23→07:01)
[2018-03-09] MEDS: INSULIN ASPART 100 UNIT/ML 1 ML 10 ML VIAL SQ SCH ×9 (04:23→21:54)
[2018-03-09] MEDS: D5-0.45% NACL WITH KCL 20MEQ/L 1,000 ML IV SCH (04:24)
[2018-03-09 04:56] VITALS: BMI 17.4
[2018-03-09 05:19] LABS: Glucose,Whole Blood 100 mg/dL (75-99)
[2018-03-09 06:12] LABS: Glucose,Whole Blood 87 mg/dL (75-99)
[2018-03-09 06:16] LABS: Basophils # (A) 0.1 k/uL (0-0.2); Basophils % (A) 1 %; Eosinophils # (A) 0.2 k/uL (0-0.7); Eosinophils % (A) 2 %; HCT 41.6 % (39.0-53.0); HGB 14.3 gm/dL (13.0-17.5); Hyperchromasia Slight; Lymphocytes # (A) 3.2 k/uL (1.0-4.8); Lymphocytes % (A) 45 %; MCH 30.3 pg (25.0-35.0); MCHC 34.5 g/dL (31.0-37.0); Monocytes # (A) 0.3 k/uL (0-1.0); Monocytes % (A) 5 %; Neutrophils # (A) 3.3 k/uL (1.3-7.7); Neutrophils % (A) 46 %; Platelet Count 285 k/uL (150-450); RBC 4.73 m/uL (4.30-5.90); RDW 12.6 % (11.5-15.5); WBC 7.2 k/uL (4.0-11.0)
[2018-03-09 06:24] LABS: Anion Gap 9 mmol/L; Blood Urea Nitrogen 9 mg/dL (9-20); Calcium 8.6 mg/dL (8.4-10.2); Carbon Dioxide 28 mmol/L (22-30); Chloride 101 mmol/L (98-107); Glucose 87 mg/dL (74-99); Magnesium 1.5 mg/dL (1.6-2.3); Potassium 3.7 mmol/L (3.5-5.1); Sodium 138 mmol/L (137-145)
[2018-03-09 07:19] LABS: Glucose,Whole Blood 173 mg/dL (75-99)
[2018-03-09 08:06] LABS: Glucose,Whole Blood 251 mg/dL (75-99)
[2018-03-09 09:57] LABS: Glucose,Whole Blood 214 mg/dL (75-99)
[2018-03-09 12:22] LABS: Glucose,Whole Blood 163 mg/dL (75-99)
--- NOTE | 2018-03-09 14:57 | P.PN ---
Subjective Patient is admitted with hyperglycemia which resolved and patient was resumed on his home regimen with well-controlled blood sugars patient says he has couple episodes of blood in the stools which were evidenced by the nursing staff his hemoglobin is fairly stable now at 14, patient is today declined rectal exam gastroenterology will be consulted will be monitored one more night. Constitutional: Denied any fatigue denied any fever. Cardio vascular: denied any chest pain, palpitations Gastrointestinal denied any nausea vomiting Pulmonary: Denied any shortness of breath cough Neurologic denied any new focal deficits Objective - Vital Signs Vital signs: Vital Signs Temp 98.3 F 03/09/18 12:00 Pulse 86 03/09/18 14:00 Resp 13 03/09/18 14:00 BP 129/95 03/09/18 14:00 Pulse Ox 96 03/09/18 14:00 Intake & Output 03/08/18 03/09/18 03/09/18 18:59 06:59 18:59 Intake Total 150 1200 Output Total 601 Balance 150 1200 -601 Weight 63.5 kg 63.5 kg 63.5 kg Intake: IV 150 1200 D5-0.45% NaCl with KCl 150 1200 20Meq/l 1,000 ml @ 150 mls/hr IV .[id number] [facility] Rx# :[id number] Output: Urine 600 Urine/Stool Mix 1 Other: # Voids 1 1 2 - Exam PHYSICAL EXAMINATION: GENERAL: The patient is alert and oriented x3, not in any acute distress. Well developed, well nourished. HEENT: Pupils are round and equally reacting to light. EOMI. No scleral icterus. No conjunctival pallor. Normocephalic, atraumatic. No pharyngeal erythema. No thyromegaly. CARDIOVASCULAR: S1 and S2 present. No murmurs, rubs, or gallops. PULMONARY: Chest is clear to auscultation, no wheezing or crackles. ABDOMEN: Soft, nontender, nondistended, normoactive bowel sounds. No palpable organomegaly. MUSCULOSKELETAL: No joint swelling or deformity. EXTREMITIES: No cyanosis, clubbing, or pedal edema. NEUROLOGICAL: Gross neurological examination did not reveal any focal deficits. SKIN: No rashes. - Labs CBC & Chem 7: 03/09/18 05:34 03/09/18 05:34 Labs: Abnormal Lab Results - Last 24 Hours (Table) 03/08/18 03/08/18 03/08/18 Range/Units 16:01 17:05 18:06 Sodium (137-145) mmol/L Potassium (3.5-5.1) mmol/L Creatinine (0.66-1.25) mg/dL Glucose (74-99) mg/dL POC Glucose (mg/dL) 423 H 332 H 294 H (75-99) mg/dL Hemoglobin A1c (4.0-6.0) % Calcium (8.4-10.2) mg/dL Magnesium (1.6-2.3) mg/dL 03/08/18 03/08/18 03/08/18 Range/Units 18:19 18:19 19:38 Sodium (137-145) mmol/L Potassium (3.5-5.1) mmol/L Creatinine 0.42 L (0.66-1.25) mg/dL Glucose 210 H (74-99) mg/dL POC Glucose (mg/dL) 234 H (75-99) mg/dL Hemoglobin A1c 16.0 H (4.0-6.0) % Calcium (8.4-10.2) mg/dL Magnesium (1.6-2.3) mg/dL 03/08/18 03/08/18 03/08/18 Range/Units 19:59 21:02 21:37 Sodium 134 L (137-145) mmol/L Potassium 3.4 L (3.5-5.1) mmol/L Creatinine 0.39 L (0.66-1.25) mg/dL Glucose 167 H (74-99) mg/dL POC Glucose (mg/dL) 225 H 190 H (75-99) mg/dL Hemoglobin A1c (4.0-6.0) % Calcium 8.2 L (8.4-10.2) mg/dL Magnesium (1.6-2.3) mg/dL 03/08/18 03/08/18 03/08/18 Range/Units 22:03 23:12 23:59 Sodium (137-145) mmol/L Potassium (3.5-5.1) mmol/L Creatinine (0.66-1.25) mg/dL Glucose (74-99) mg/dL POC Glucose (mg/dL) 184 H 152 H 141 H (75-99) mg/dL Hemoglobin A1c (4.0-6.0) % Calcium (8.4-10.2) mg/dL Magnesium (1.6-2.3) mg/dL 03/09/18 03/09/18 03/09/18 Range/Units 01:03 01:51 03:06 Sodium (137-145) mmol/L Potassium (3.5-5.1) mmol/L Creatinine (0.66-1.25) mg/dL Glucose (74-99) mg/dL POC Glucose (mg/dL) 143 H 131 H 120 H (75-99) mg/dL Hemoglobin A1c (4.0-6.0) % Calcium (8.4-10.2) mg/dL Magnesium (1.6-2.3) mg/dL 03/09/18 03/09/18 03/09/18 Range/Units 04:01 05:06 05:34 Sodium (137-145) mmol/L Potassium (3.5-5.1) mmol/L Creatinine 0.46 L (0.66-1.25) mg/dL Glucose (74-99) mg/dL POC Glucose (mg/dL) 118 H 100 H (75-99) mg/dL Hemoglobin A1c (4.0-6.0) % Calcium (8.4-10.2) mg/dL Magnesium 1.5 L (1.6-2.3) mg/dL 03/09/18 03/09/18 03/09/18 Range/Units 07:17 08:03 09:55 Sodium (137-145) mmol/L Potassium (3.5-5.1) mmol/L Creatinine (0.66-1.25) mg/dL Glucose (74-99) mg/dL POC Glucose (mg/dL) 173 H 251 H 214 H (75-99) mg/dL Hemoglobin A1c (4.0-6.0) % Calcium (8.4-10.2) mg/dL Magnesium (1.6-2.3) mg/dL 03/09/18 Range/Units 12:19 Sodium (137-145) mmol/L Potassium (3.5-5.1) mmol/L Creatinine (0.66-1.25) mg/dL Glucose (74-99) mg/dL POC Glucose (mg/dL) 163 H (75-99) mg/dL Hemoglobin A1c (4.0-6.0) % Calcium (8.4-10.2) mg/dL Magnesium (1.6-2.3) mg/dL Assessment and Plan Plan: -Highly elevated blood sugars: Patient is type I diabetic, continue with his home regimen will controlled today -Hyponatremia: Pseudohyponatremia from hyperglycemia improved -Right red blood per rectum: Gastro-oncology consultation hemoglobin fairly stable -Asthma without any acute exacerbation -Depression
[2018-03-09] MEDS: MAGNESIUM SULFATE-D5W PMX 1 GM in DEXTROSE/WATER 1 100ML.BAG IVPB SCH ×2 (15:21→17:16)
[2018-03-09 17:11] LABS: Glucose,Whole Blood 300 mg/dL (75-99)
[2018-03-09 21:05] LABS: Glucose,Whole Blood 299 mg/dL (75-99)
[2018-03-10 02:38] LABS: Glucose,Whole Blood 196 mg/dL (75-99)
[2018-03-10] MEDS: INSULIN ASPART 100 UNIT/ML 1 ML 10 ML VIAL SQ SCH ×5 (02:39→12:55)
[2018-03-10 05:28] LABS: Anion Gap 8 mmol/L; Basophils # (A) 0.1 k/uL (0-0.2); Basophils % (A) 1 %; Blood Urea Nitrogen 12 mg/dL (9-20); Calcium 9.1 mg/dL (8.4-10.2); Carbon Dioxide 32 mmol/L (22-30); Chloride 99 mmol/L (98-107); Eosinophils # (A) 0.1 k/uL (0-0.7); Eosinophils % (A) 2 %; Glucose 126 mg/dL (74-99); HCT 45.2 % (39.0-53.0); HGB 15.9 gm/dL (13.0-17.5); Lymphocytes # (A) 3.1 k/uL (1.0-4.8); Lymphocytes % (A) 48 %; MCH 31.9 pg (25.0-35.0); MCHC 35.2 g/dL (31.0-37.0); MCV 90.5 fL (80.0-100.0); Magnesium 2.2 mg/dL (1.6-2.3); Mean Platelet Volume 6.3; Monocytes # (A) 0.4 k/uL (0-1.0); Monocytes % (A) 7 %; Neutrophils # (A) 2.6 k/uL (1.3-7.7); Neutrophils % (A) 40 %; Phosphorus 5.3 mg/dL (2.5-4.5); Platelet Count 282 k/uL (150-450); Potassium 4.1 mmol/L (3.5-5.1); RBC 4.99 m/uL (4.30-5.90); RDW 12.4 % (11.5-15.5); Sodium 139 mmol/L (137-145); WBC 6.4 k/uL (4.0-11.0)
[2018-03-10 07:49] LABS: Glucose,Whole Blood 105 mg/dL (75-99)
[2018-03-10 08:32] VITALS: RESP 20
--- NOTE | 2018-03-10 10:08 | P.CONS ---
History of Present Illness - Reason for Consult Consult date: 03/10/18 GI bleed Requesting physician: Lalo May - Chief Complaint Rectal bleeding - History of Present Illness 22-year-old male patient Dr. Valenzuela IDDM poorly controlled admitted with multiple complaints nausea vomiting mild abdominal cramping blood tinged bowel movements x 2-3 days. Patient states yesterday he vomited with pink tinged emesis as well as a few loose bowel movements that were "orange" in color. Denies carly hematochezia melena or blood clots. No bowel movements today. No bleeding since admission. No personal or familial history of inflammatory bowel diseases or GI bleeds. No history of endoscopy. No NSAIDs or aspirin alcohol. Afebrile. Admission hemoglobin 15.9 decreased at 14.1 presently 15.9. Platelet 282. Glucose 598. Sodium 132. Potassium 4.7. BUN 13. Creatinine 0.5. Lipase transaminases within normal limits. Acetone positive. No changes in diet no sick contacts or recent travels. No recent antibiotics. Review of Systems Constitutional: Denies fever, chills, sweats, weight gain, or loss. HEENT: Negative for migraines, blurred vision or loss, earaches, drainage, tinnitus, oral mucosal lesions, dysphagia, or odynophagia. Cardiac: Negative for chest pain, arrhythmias, or palpitation. Respiratory: Negative for shortness of breath, hemoptysis, cough, or sputum production. Gastrointestinal: See HPI for pertinent findings. Genitourinary: Negative for hematuria, urgency, frequency, polyuria, dysuria, or penile discharge. Musculoskeletal: Negative for muscle aches, swelling, arthritis, and arthralgias. Neurologic: Negative for stroke or TIA. Endocrine: Negative for thyroid problems. Skin: Negative for rash or itching. Psychiatric: Negative history for depression and anxiety Past Medical History Past Medical History: Asthma, Diabetes Mellitus, Skin Disorder Additional Past Medical History / Comment(s): , insulin dependent diabetes oral motor apraxia;. psoriasis, previous suicidal attempts anxiety/depression, previous hospital physicians for DKA,gastroparesis. History of Any Multi-Drug Resistant Organisms: None Reported Past Surgical History: Adenoidectomy Additional Past Surgical History / Comment(s): 2002 Past Anesthesia/Blood Transfusion Reactions: No Reported Reaction Past Psychological History: Anxiety, Depression Smoking Status: Former smoker Past Alcohol Use History: None Reported Past Drug Use History: None Reported - Past Family History Mother Family Medical History: CVA/TIA Father Family Medical History: Hyperlipidemia, Hypertension Additional Family Medical History / Comment(s): . Medications and Allergies Home Medications Medication Instructions Recorded Confirmed Type Insulin Glargine [Lantus] 25 unit SQ HS 09/25/17 03/08/18 History traZODone HCL 150 mg PO HS 10/17/17 03/08/18 History Insulin Aspart [NovoLOG See Protocol SQ AC-TID 03/08/18 03/08/18 History (formulary)] Allergies Allergy/AdvReac Type Severity Reaction Status Date / Time No Known Allergies Allergy Verified 03/08/18 13:35 Physical Exam Vitals: Vital Signs Temp Pulse Resp BP Pulse Ox 03/10/18 08:00 97.8 F 101 H 20 111/80 99 03/10/18 06:00 90 14 111/80 96 03/10/18 04:00 98.5 F 92 13 126/89 96 03/10/18 02:00 81 14 126/89 95 03/10/18 00:00 98.8 F 86 14 136/97 97 03/09/18 20:00 98.1 F 88 21 120/96 93 L 03/09/18 19:01 92 18 120/96 95 03/09/18 18:30 89 14 99 03/09/18 18:00 92 10 L 120/96 99 03/09/18 17:30 87 17 97 03/09/18 17:00 92 15 120/96 98 03/09/18 16:30 93 10 L 120/96 96 03/09/18 16:00 98.1 F 88 15 120/96 97 03/09/18 15:30 87 17 129/95 97 03/09/18 15:00 87 16 129/95 97 03/09/18 14:30 129/95 03/09/18 14:00 86 13 129/95 96 03/09/18 13:30 98 16 129/95 97 03/09/18 13:00 90 12 129/95 96 03/09/18 12:30 92 36 H 129/95 97 03/09/18 12:00 98.3 F 85 10 L 129/95 99 03/09/18 11:30 85 10 L 126/93 99 03/09/18 11:00 113 H 16 126/93 90 L 03/09/18 10:30 86 10 L 126/93 97 Intake and Output 03/09/18 03/10/18 03/10/18 22:59 06:59 14:59 Output Total 901 1200 Balance -901 -1200 Output: Urine 900 1200 Stool 1 Other: # Voids 1 2 Weight 64.1 kg General appearance: The patient is alert, oriented, in no acute distress. HET: Head is normocephalic and atraumatic. Pupils are equal and reactive. Oropharynx is clear without lesions. Neck: Supple without lymphadenopathy. Trachea midline. Heart: S1 S2. Regular rate and rhythm. Lungs: No crackles or wheezes are heard. Abdomen: Soft, mild midepigastric and LLQ mild tenderness, nondistended with bowel sounds. No peritoneal signs. No palpable organomegaly or masses. Extremities: Normal skin color and turgor. No cyanosis, rash, ulceration, clubbing, or edema. Radial and pedal pulses are 2/4 bilaterally. Neurological: No focal deficits. Strength and sensation are grossly intact. Results CBC & Chem 7: 03/10/18 04:15 03/10/18 04:15 Labs: Abnormal Lab Results - Last 24 Hours (Table) 03/08/18 03/09/18 03/09/18 Range/Units 18:19 12:19 17:09 Carbon Dioxide (22-30) mmol/L Creatinine (0.66-1.25) mg/dL Glucose (74-99) mg/dL POC Glucose (mg/dL) 163 H 300 H (75-99) mg/dL Hemoglobin A1c 16.0 H (4.0-6.0) % Phosphorus (2.5-4.5) mg/dL 03/09/18 03/10/18 03/10/18 Range/Units 21:02 02:35 04:15 Carbon Dioxide 32 H (22-30) mmol/L Creatinine 0.56 L (0.66-1.25) mg/dL Glucose 126 H (74-99) mg/dL POC Glucose (mg/dL) 299 H 196 H (75-99) mg/dL Hemoglobin A1c (4.0-6.0) % Phosphorus 5.3 H (2.5-4.5) mg/dL 03/10/18 Range/Units 07:24 Carbon Dioxide (22-30) mmol/L Creatinine (0.66-1.25) mg/dL Glucose (74-99) mg/dL POC Glucose (mg/dL) 105 H (75-99) mg/dL Hemoglobin A1c (4.0-6.0) % Phosphorus (2.5-4.5) mg/dL Assessment and Plan (1) Rectal bleeding Narrative/Plan: 22-year-old male admitted with diabetic ketoacidosis IDDM poorly controlled with reported pink tinged emesis and blood tinged stools however no witnessed blood in bowel movements since admission hemoglobin 15.9. Possible Gabriela- Stallings tear secondary to nausea vomiting. Etiology rectal bleeding is unclear at this time possible hemorrhoidal possible inflammatory. Current Visit: Yes Status: Acute Code(s): K62.5 - HEMORRHAGE OF ANUS AND RECTUM SNOMED Code(s): 84144071 (2) DKA (diabetic ketoacidoses) Current Visit: Yes Status: Acute Code(s): E13.10 - OTH DIABETES MELLITUS WITH KETOACIDOSIS WITHOUT COMA SNOMED Code(s): 675345373 (3) IDDM (insulin dependent diabetes mellitus) Current Visit: Yes Status: Acute Code(s): E11.9 - TYPE 2 DIABETES MELLITUS WITHOUT COMPLICATIONS; Z79.4 - ALF (CURRENT) USE OF INSULIN SNOMED Code( s): 66907480 Plan: 1. Continue diet as tolerated. CBC monitoring. Monitor bowel movements for blood. Stool studies including calprotectin lactoferrin culture clostridium difficile. FOBT requested. If patient manifests GI bleeding or precipitous drop in hemoglobin recommend CT abdomen and pelvis, will discuss endoscopic exams as clinically indicated. We'll continue to follow with you. Thank you for this kind referral and the opportunity to participate in the care of your patient. This consultation was discussed with Dr. Ramos. The impression and plan of care have been directed as dictated.
[2018-03-10 12:26] LABS: Glucose,Whole Blood 206 mg/dL (75-99)
[2018-03-10 13:46] VITALS: BP 108/81; PULSE 86; TEMP 98.7
--- NOTE | 2018-03-10 16:00 | P.DS ---
Providers Date of admission: 03/08/18 15:22 Attending physician: Latesha Villa Consults: 03/09/18 14:02 Consult Physician Routine Consulting Provider: Leah Cross Consult Reason/Comments: blood in stool Do you want consulting provider notified?: Yes Primary care physician: Brown Valenzuela [place] [facility] Course: Patient is admitted with hyperglycemia which resolved and patient was resumed on his home regimen with well-controlled blood sugars patient says he has couple episodes of blood in the stools which were evidenced by the nursing staff his hemoglobin is fairly stable now at 14, patient is today declined rectal exam gastroenterology will be consulted will be monitored one more night. 03/10/2018 Patient's hemoglobin remained stable patient did not move his bowels today. Patient probably doesn't have any bright red per rectum did patient will be discharged today to follow with PCP as an outpatient no further intervention at this time blood sugars are well controlled. Noncompliance with medications on sling was provided other medical problems include asthma without any acute exacerbation, depression. PHYSICAL EXAMINATION: GENERAL: The patient is alert and oriented x3, not in any acute distress. Thin built HEENT: Pupils are round and equally reacting to light. EOMI. No scleral icterus. No conjunctival pallor. Normocephalic, atraumatic. No pharyngeal erythema. No thyromegaly. CARDIOVASCULAR: S1 and S2 present. No murmurs, rubs, or gallops. PULMONARY: Chest is clear to auscultation, no wheezing or crackles. ABDOMEN: Soft, nontender, nondistended, normoactive bowel sounds. No palpable organomegaly. MUSCULOSKELETAL: No joint swelling or deformity. EXTREMITIES: No cyanosis, clubbing, or pedal edema. NEUROLOGICAL: Gross neurological examination did not reveal any focal deficits. SKIN: No rashes. Patient Condition at Discharge: Fair Plan - Discharge Summary New Discharge Prescriptions: No Action Insulin Glargine [Lantus] 25 unit SQ HS traZODone HCL 150 mg PO HS Insulin Aspart [NovoLOG (formulary)] See Protocol SQ AC-TID Discharge Medication List Insulin Glargine [Lantus] 25 unit SQ HS 09/25/17 [History] traZODone HCL 150 mg PO HS 10/17/17 [History] Insulin Aspart [NovoLOG (formulary)] See Protocol SQ AC-TID 03/08/18 [History] Follow up Appointment(s)/Referral(s): Brown Valenzuela MD [Primary Care Provider] - 3 Days Patient Instructions/Handouts: Diabetic Ketoacidosis (DC) Care Plan Goals (MU): Follow your prescribe diet and medications. Activity as tolerated. Discharge Disposition: HOME SELF-CARE
== END 2018-03-10 15:09 | disposition home or self-care (01) | DRG 638 ==
LOC: EC 12:30 → UNDOADMIN 15:22 → 3SCARD 15:22 → 2SICU 16:44
PROVIDERS: ADMIT Hospitalist; ATTEND Hospitalist
DX: E11.10 Type 2 diabetes mellitus with ketoacidosis without coma (principal); K92.1 Melena; E87.1 Hypo-osmolality and hyponatremia; E11.43 Type 2 diabetes mellitus with diabetic autonomic (poly)neuropathy; F32.9 Major depressive disorder, single episode, unspecified; F41.9 Anxiety disorder, unspecified; J45.909 Unspecified asthma, uncomplicated; K31.84 Gastroparesis; Z79.4 Long term (current) use of insulin; Z82.49 Family history of ischemic heart disease and other diseases of the circulatory system; Z87.891 Personal history of nicotine dependence; Z91.14 Patient's other noncompliance with medication regimen; T38.3X6A Underdosing of insulin and oral hypoglycemic [antidiabetic] drugs, initial encounter; L40.9 Psoriasis, unspecified; Z91.5 Personal history of self-harm; Z82.3 Family history of stroke; R48.2 Apraxia; Z79.899 Other long term (current) drug therapy
CPT/HCPCS: 36415; 80048; 80051; 80053; 81003; 82009; 82565; 82947; 83036; 83605; 83690; 83735; 84100; 84520; 85025; 96360; 96361; 99285

== ENCOUNTER 2018-04-07 11:16 | Emergency (ER) | payer OTHER ==
[2018-04-07 11:19] VITALS: BP 109/76; PULSE 107; RESP 20; TEMP 98.1
--- NOTE | 2018-04-07 11:40 | ED ---
Eye Problem HPI - General Chief complaint: Eye Problems Stated complaint: eye irritation Time Seen by Provider: 04/07/18 11:22 Source: patient Mode of arrival: ambulatory Limitations: no limitations - History of Present Illness Initial comments: 22-year-old male past nuchal history of type 1 diabetes presenting today for chief complaint of left eye redness 2 days. Patient states that his left eye is felt irritated and he noticed redness 2 days ago. He states that this morning he noticed purulent drainage this morning from his left eye. He denies any penile discharge, denies any sick contacts. He denies any loss of vision. He states due to the Dougherty's he does have blurriness at times but this resolves with blinking. Patient denies any trauma to the eye, he denies contact lens wearing, he denies any vision loss, diplopia, pain with extraocular eye movements, lives any ocular swelling or ocular pain, headache, nausea, vomiting, fever, chills or night sweats. Patient denies any welding, grinding or risk of foreign body exposure. Patient denies any other associated symptoms today he appears well vital signs within acceptable limits. - Related Data Home Medications Medication Instructions Recorded Confirmed Insulin Glargine [Lantus] 25 unit SQ HS 09/25/17 03/08/18 traZODone HCL 150 mg PO HS 10/17/17 03/08/18 Insulin Aspart [NovoLOG See Protocol SQ AC-TID 03/08/18 03/08/18 (formulary)] Previous Rx's Medication Instructions Recorded Erythromycin Ophth Oint [Romycin 1 applic LEFT EYE QID 7 Days #1 04/07/18 Ophth Oint] tube Allergies Allergy/AdvReac Type Severity Reaction Status Date / Time No Known Allergies Allergy Verified 04/07/18 11:19 Review of Systems ROS Statement: Those systems with pertinent positive or pertinent negative responses have been documented in the HPI. ROS Other: All systems not noted in ROS Statement are negative. Constitutional: Denies: fever, chills, night sweats Eyes: Reports: as per HPI, eye discharge. Denies: vision change ENT: Denies: ear pain, throat pain Respiratory: Denies: cough, dyspnea Cardiovascular: Denies: as per HPI, palpitations, dyspnea on exertion Endocrine: Denies: fatigue Gastrointestinal: Denies: abdominal pain, diarrhea, constipation, hematemesis, melena Genitourinary: Denies: urgency, dysuria, frequency, hematuria, discharge Musculoskeletal: Denies: back pain Skin: Denies: rash, lesions, change in color Neurological: Denies: headache, weakness, numbness, paresthesias, confusion Past Medical History Past Medical History: Asthma, Diabetes Mellitus, Skin Disorder Additional Past Medical History / Comment(s): , insulin dependent diabetes oral motor apraxia;. psoriasis, previous suicidal attempts anxiety/depression, previous hospital physicians for DKA,gastroparesis. History of Any Multi-Drug Resistant Organisms: None Reported Past Surgical History: Adenoidectomy Additional Past Surgical History / Comment(s): 2002 Past Anesthesia/Blood Transfusion Reactions: No Reported Reaction Past Psychological History: Anxiety, Depression Smoking Status: Former smoker Past Alcohol Use History: None Reported Past Drug Use History: None Reported - Past Family History Mother Family Medical History: CVA/TIA Father Family Medical History: Hyperlipidemia, Hypertension Additional Family Medical History / Comment(s): . General Exam - General Exam Comments Initial Comments: General: The patient is awake and alert, in no distress, and does not appear acutely ill. Eye: Visual acuity 20/40 OS, 2024 OD Pupils are equal, round and reactive to light, extra-ocular movements are intact. No nystagmus. There is conjunctival injection of the left eye sparing the limbus. Visual brady intact to confrontation. IOP 18 bilaterally. Patient denies any. Extraocular eye movement. There is no soft tissue swelling of the lids or surrounding tissues of the eyes. No apparent crusting or drainage. No signs of icterus. Patient is mildly photophobic with slit-lamp examination. No consensual photophobia. No APD. There is no evidence of ocular foreign body upon slit lamp or fluorescein examination. No areas of uptake. No areas concerning for corneal abrasion or ulcer. Ears, nose, mouth and throat: There are moist mucous membranes and no oral lesions. Neck: The neck is supple, there is no tenderness or JVD. Cardiovascular: There is a regular rate and rhythm. No murmur, rub or gallop is appreciated. Respiratory: Lungs are clear to auscultation, respirations are non-labored, breath sounds are equal. No wheezes, stridor, rales, or rhonchi. Musculoskeletal: Normal ROM, no tenderness. Strength 5/5. Sensation intact. Pulses equal bilaterally 2+. Neurological: A&O x 3. CN II-XII intact, There are no obvious motor or sensory deficits. Coordination appears grossly intact. Speech is normal. Skin: Skin is warm and dry and no rashes or lesions are noted. Psychiatric: Cooperative, appropriate mood & affect, normal judgment. Limitations: no limitations Course Vital Signs 04/07/18 11:18 Temperature 98.1 F Pulse Rate 107 H Respiratory 20 Rate Blood Pressure 109/76 O2 Sat by Pulse 99 Oximetry Medical Decision Making - Medical Decision Making At this time given physical exam findings that the patient has left eye conjunctivitis. Patient be started on erythromycin with follow up with ophthalmology or primary care provider. Patient was given strict return parameters which include any vision loss, changes, worsening pain, nausea, vomiting or any other concerning symptoms. Patient verbalizes understanding. Case discussed in detail Dr. Nj who agrees with impression and plan. Patient was discharged in stable condition Disposition Clinical Impression: Conjunctivitis Disposition: HOME SELF-CARE Instructions: Conjunctivitis (ED) Additional Instructions: Please use medication as discussed. Please follow-up with ophthalmology within the next 2 days. Please return to emergency room if the symptoms increase or worsen or for any other concerns, including increasing redness, pain, vision loss, headache. Prescriptions: Erythromycin Ophth Oint [Romycin Ophth Oint] 1 applic LEFT EYE QID 7 Days #1 tube Is patient prescribed a controlled substance at d/c from ED?: No Referrals: Brown Valenzuela MD [Primary Care Provider] - 1-2 days Terri Jarrett MD [STAFF PHYSICIAN] - 1-2 days Time of Disposition: 11:38
== END 2018-04-07 12:04 | disposition home or self-care (01) ==
LOC: EC 11:16
DX: H10.9 Unspecified conjunctivitis (principal); E10.9 Type 1 diabetes mellitus without complications; F41.9 Anxiety disorder, unspecified; F32.9 Major depressive disorder, single episode, unspecified; Z87.891 Personal history of nicotine dependence; Z79.4 Long term (current) use of insulin; Z79.899 Other long term (current) drug therapy
CPT/HCPCS: 99282

== ENCOUNTER 2018-05-21 01:37 | Inpatient (IN) | payer OTHER ==
[2018-05-21 01:43] LABS: Glucose,Whole Blood >600 mg/dL (75-99)
[2018-05-21] MEDS ORDERED: INSULIN REGULAR BOLUS (FROM DRIP BAG) IV ONE (01:47)
[2018-05-21] MEDS ORDERED: SODIUM CHLORIDE 0.9% 1,000 ML IV SCH (02:00)
--- NOTE | 2018-05-21 02:03 | ED ---
Altered Mental Status HPI - General Chief Complaint: Altered Mental Status Stated Complaint: altered mental status Time Seen by Provider: 05/21/18 01:41 Source: EMS Mode of arrival: EMS Limitations: altered mental status - History of Present Illness Initial Comments: This patient is a 22-year-old man with history of diabetes, who presents by ambulance for mental status changes. The patient reportedly had been at home. He recently moved back in with his parents. They note that he has been less active over the course today and now not responding to them. EMS reports that they placed patient on oxygen, started IV, and did give a dose of 1 mg of Narcan without much change. MD Complaint: altered mental status, decreased responsiveness -: hour(s) Severity: severe Context: diabetes Treatments Prior to Arrival: IV fluid, oxygen - Related Data Home Medications Medication Instructions Recorded Confirmed Insulin Glargine [Lantus] 25 unit SQ HS 09/25/17 05/22/18 traZODone HCL 150 mg PO HS 10/17/17 05/22/18 INSULIN LISPRO (HumaLOG) [HumaLOG] 6 units SQ AC-TID 05/21/18 05/22/18 Allergies Allergy/AdvReac Type Severity Reaction Status Date / Time No Known Allergies Allergy Verified 05/22/18 14:54 Review of Systems ROS Statement: Those systems with pertinent positive or pertinent negative responses have been documented in the HPI. ROS Other: All systems not noted in ROS Statement are negative. Limitations: ROS unobtainable due to patients medical condition Past Medical History Past Medical History: Asthma, Diabetes Mellitus, Skin Disorder Additional Past Medical History / Comment(s): , insulin dependent diabetes oral motor apraxia;. psoriasis, previous suicidal attempts anxiety/depression, previous hospital physicians for DKA,gastroparesis. History of Any Multi-Drug Resistant Organisms: None Reported Past Surgical History: Adenoidectomy Additional Past Surgical History / Comment(s): 2002 Past Anesthesia/Blood Transfusion Reactions: No Reported Reaction Past Psychological History: Anxiety, Depression Smoking Status: Former smoker Past Alcohol Use History: None Reported Past Drug Use History: None Reported - Past Family History Mother Family Medical History: CVA/TIA Father Family Medical History: Hyperlipidemia, Hypertension Additional Family Medical History / Comment(s): . General Exam Limitations: altered mental status General appearance: alert, in distress Head exam: Present: atraumatic, normocephalic Eye exam: Present: normal appearance ENT exam: Present: mucous membranes dry Neck exam: Present: full ROM. Absent: meningismus Respiratory exam: Present: respiratory distress (Kussmaul pattern). Absent: normal lung sounds bilaterally, wheezes, rales, rhonchi, stridor Cardiovascular Exam: Present: regular rate, normal rhythm, normal heart sounds. Absent: systolic murmur, diastolic murmur, rubs, gallop GI/Abdominal exam: Present: soft, diminished bowel sounds. Absent: distended, tenderness, guarding, rebound, rigid Extremities exam: Present: normal inspection, normal capillary refill. Absent: pedal edema, calf tenderness Back exam: Present: normal inspection. Absent: CVA tenderness (R), CVA tenderness (L) Neurological exam: Present: altered. Absent: oriented X3, motor sensory deficit Skin exam: Present: warm, dry, intact, normal color. Absent: rash Course Vital Signs 05/21/18 05/21/18 05/21/18 01:42 02:00 03:00 Temperature Pulse Rate 98 93 88 Respiratory 31 H 25 H 20 Rate Blood Pressure 106/59 105/56 95/61 O2 Sat by Pulse 94 L Oximetry 05/21/18 05/21/18 05/21/18 04:00 04:45 05:00 Temperature Pulse Rate 118 H 114 H 114 H Respiratory 23 18 17 Rate Blood Pressure 92/70 103/68 92/64 O2 Sat by Pulse 100 98 100 Oximetry 05/21/18 05/21/18 05/21/18 05:15 05:28 05:30 Temperature 89.4 F L Pulse Rate 121 H Respiratory 23 20 Rate Blood Pressure 88/53 94/67 O2 Sat by Pulse 100 100 Oximetry 05/21/18 05/21/18 05/21/18 05:45 06:00 06:15 Temperature Pulse Rate 128 H 113 H 98 Respiratory 26 H 12 21 Rate Blood Pressure 99/67 102/69 111/77 O2 Sat by Pulse 100 100 100 Oximetry 05/21/18 05/21/18 05/21/18 06:30 06:45 07:34 Temperature 92.6 F L 93.2 F L Pulse Rate 101 H 103 H 107 H Respiratory 19 14 18 Rate Blood Pressure 118/72 108/69 122/76 O2 Sat by Pulse 99 99 99 Oximetry Medical Decision Making - Lab Data Result diagrams: 05/22/18 04:36 05/22/18 04:36 Lab Results 05/21/18 05/21/18 05/21/18 Range/Units 01:41 01:48 01:48 WBC (4.0-11.0) k/uL RBC (4.30-5.90) m/uL Hgb (13.0-17.5) gm/dL Hct (39.0-53.0) % MCV (80.0-100.0) fL MCH (25.0-35.0) pg MCHC (31.0-37.0) g/dL RDW (11.5-15.5) % Plt Count (150-450) k/uL Neutrophils % (Manual) % Band Neutrophils % % Lymphocytes % (Manual) % Monocytes % (Manual) % Neutrophils # (Manual) (1.3-7.7) k/uL Lymphocytes # (Manual) (1.0-4.8) k/uL Monocytes # (Manual) (0-1.0) k/uL Nucleated RBCs (0-0) /100 WBC Manual Slide Review Toxic Granulation Hypochromasia VBG pH (7.31-7.41) VBG pCO2 (37-51) mmHg VBG HCO3 (24-28) mmol/L Sodium 138 (137-145) mmol/L Potassium 4.6 (3.5-5.1) mmol/L Chloride 102 (98-107) mmol/L Carbon Dioxide <5 L* (22-30) mmol/L Anion Gap mmol/L BUN 31 H (9-20) mg/dL Creatinine 1.67 H (0.66-1.25) mg/dL Est GFR (CKD-EPI)AfAm 67 (>60 ml/min/1.73 sqM) Est GFR (CKD-EPI)NonAf 58 (>60 ml/min/1.73 sqM) Glucose 745 H* (74-99) mg/dL POC Glucose (mg/dL) >600 H (75-99) mg/dL POC Glu Food Concession Manager ID Parker Audrey Calcium 8.4 (8.4-10.2) mg/dL Phosphorus (2.5-4.5) mg/dL Magnesium 2.7 H (1.6-2.3) mg/dL Total Bilirubin 0.3 (0.2-1.3) mg/dL AST 23 (17-59) U/L ALT 35 (21-72) U/L Alkaline Phosphatase 102 (38-126) U/L Troponin I <0.012 (0.000-0.034) ng/mL Total Protein 5.5 L (6.3-8.2) g/dL Albumin 3.5 (3.5-5.0) g/dL Urine Color Urine Appearance (Clear) Urine pH (5.0-8.0) Ur Specific [place] (1.001-1.035) Urine Protein (Negative) Urine Glucose (UA) (Negative) Urine Ketones (Negative) Urine Blood (Negative) Urine Nitrite (Negative) Urine Bilirubin (Negative) Urine Urobilinogen (<2.0) mg/dL Ur Leukocyte Esterase (Negative) Urine WBC (0-5) /hpf Ur Squamous Epith Cells (0-4) /hpf Urine Bacteria (None) /hpf Hyaline Casts (0-2) /lpf Urine Mucus (None) /hpf Acetone, Qual Positive (Negative) 05/21/18 05/21/18 05/21/18 Range/Units 01:48 01:48 03:19 WBC 41.9 H (4.0-11.0) k/uL RBC 5.01 (4.30-5.90) m/uL Hgb 15.9 (13.0-17.5) gm/dL Hct 50.9 (39.0-53.0) % MCV 101.7 H (80.0-100.0) fL MCH 31.7 (25.0-35.0) pg MCHC 31.1 (31.0-37.0) g/dL RDW 12.5 (11.5-15.5) % Plt Count 429 (150-450) k/uL Neutrophils % (Manual) 60 % Band Neutrophils % 22 % Lymphocytes % (Manual) 13 % Monocytes % (Manual) 5 % Neutrophils # (Manual) 34.30 H (1.3-7.7) k/uL Lymphocytes # (Manual) 5.45 H (1.0-4.8) k/uL Monocytes # (Manual) 2.10 H (0-1.0) k/uL Nucleated RBCs 0 (0-0) /100 WBC Manual Slide Review Performed Toxic Granulation Present Hypochromasia Moderate VBG pH 6.78 L* (7.31-7.41) VBG pCO2 14 L* (37-51) mmHg VBG HCO3 2 L* (24-28) mmol/L Sodium (137-145) mmol/L Potassium (3.5-5.1) mmol/L Chloride (98-107) mmol/L Carbon Dioxide (22-30) mmol/L Anion Gap mmol/L BUN (9-20) mg/dL Creatinine (0.66-1.25) mg/dL Est GFR (CKD-EPI)AfAm (>60 ml/min/1.73 sqM) Est GFR (CKD-EPI)NonAf (>60 ml/min/1.73 sqM) Glucose (74-99) mg/dL POC Glucose (mg/dL) 598 H (75-99) mg/dL POC Glu Food Concession Manager ID Simno Kimbrough Calcium (8.4-10.2) mg/dL Phosphorus (2.5-4.5) mg/dL Magnesium (1.6-2.3) mg/dL Total Bilirubin (0.2-1.3) mg/dL AST (17-59) U/L ALT (21-72) U/L Alkaline Phosphatase (38-126) U/L Troponin I (0.000-0.034) ng/mL Total Protein (6.3-8.2) g/dL Albumin (3.5-5.0) g/dL Urine Color Urine Appearance (Clear) Urine pH (5.0-8.0) Ur Specific [place] (1.001-1.035) Urine Protein (Negative) Urine Glucose (UA) (Negative) Urine Ketones (Negative) Urine Blood (Negative) Urine Nitrite (Negative) Urine Bilirubin (Negative) Urine Urobilinogen (<2.0) mg/dL Ur Leukocyte Esterase (Negative) Urine WBC (0-5) /hpf Ur Squamous Epith Cells (0-4) /hpf Urine Bacteria (None) /hpf Hyaline Casts (0-2) /lpf Urine Mucus (None) /hpf Acetone, Qual (Negative) 05/21/18 05/21/18 05/21/18 Range/Units 04:30 05:30 05:30 WBC (4.0-11.0) k/uL RBC (4.30-5.90) m/uL Hgb (13.0-17.5) gm/dL Hct (39.0-53.0) % MCV (80.0-100.0) fL MCH (25.0-35.0) pg MCHC (31.0-37.0) g/dL RDW (11.5-15.5) % Plt Count (150-450) k/uL Neutrophils % (Manual) % Band Neutrophils % % Lymphocytes % (Manual) % Monocytes % (Manual) % Neutrophils # (Manual) (1.3-7.7) k/uL Lymphocytes # (Manual) (1.0-4.8) k/uL Monocytes # (Manual) (0-1.0) k/uL Nucleated RBCs (0-0) /100 WBC Manual Slide Review Toxic Granulation Hypochromasia VBG pH 6.83 L* (7.31-7.41) VBG pCO2 22 L (37-51) mmHg VBG HCO3 3 L* (24-28) mmol/L Sodium 143 (137-145) mmol/L Potassium 4.4 (3.5-5.1) mmol/L Chloride 113 H (98-107) mmol/L Carbon Dioxide <5 L* (22-30) mmol/L Anion Gap mmol/L BUN 29 H (9-20) mg/dL Creatinine 1.15 (0.66-1.25) mg/dL Est GFR (CKD-EPI)AfAm >90 (>60 ml/min/1.73 sqM) Est GFR (CKD-EPI)NonAf >90 (>60 ml/min/1.73 sqM) Glucose 505 H* (74-99) mg/dL POC Glucose (mg/dL) 541 H (75-99) mg/dL POC Glu Food Concession Manager ID Audrey Canales Calcium 7.9 L (8.4-10.2) mg/dL Phosphorus 5.7 H (2.5-4.5) mg/dL Magnesium (1.6-2.3) mg/dL Total Bilirubin (0.2-1.3) mg/dL AST (17-59) U/L ALT (21-72) U/L Alkaline Phosphatase (38-126) U/L Troponin I (0.000-0.034) ng/mL Total Protein (6.3-8.2) g/dL Albumin (3.5-5.0) g/dL Urine Color Urine Appearance (Clear) Urine pH (5.0-8.0) Ur Specific [place] (1.001-1.035) Urine Protein (Negative) Urine Glucose (UA) (Negative) Urine Ketones (Negative) Urine Blood (Negative) Urine Nitrite (Negative) Urine Bilirubin (Negative) Urine Urobilinogen (<2.0) mg/dL Ur Leukocyte Esterase (Negative) Urine WBC (0-5) /hpf Ur Squamous Epith Cells (0-4) /hpf Urine Bacteria (None) /hpf Hyaline Casts (0-2) /lpf Urine Mucus (None) /hpf Acetone, Qual (Negative) 05/21/18 05/21/18 05/21/18 Range/Units 05:48 05:59 06:46 WBC (4.0-11.0) k/uL RBC (4.30-5.90) m/uL Hgb (13.0-17.5) gm/dL Hct (39.0-53.0) % MCV (80.0-100.0) fL MCH (25.0-35.0) pg MCHC (31.0-37.0) g/dL RDW (11.5-15.5) % Plt Count (150-450) k/uL Neutrophils % (Manual) % Band Neutrophils % % Lymphocytes % (Manual) % Monocytes % (Manual) % Neutrophils # (Manual) (1.3-7.7) k/uL Lymphocytes # (Manual) (1.0-4.8) k/uL Monocytes # (Manual) (0-1.0) k/uL Nucleated RBCs (0-0) /100 WBC Manual Slide Review Toxic Granulation Hypochromasia VBG pH (7.31-7.41) VBG pCO2 (37-51) mmHg VBG HCO3 (24-28) mmol/L Sodium (137-145) mmol/L Potassium (3.5-5.1) mmol/L Chloride (98-107) mmol/L Carbon Dioxide (22-30) mmol/L Anion Gap mmol/L BUN (9-20) mg/dL Creatinine (0.66-1.25) mg/dL Est GFR (CKD-EPI)AfAm (>60 ml/min/1.73 sqM) Est GFR (CKD-EPI)NonAf (>60 ml/min/1.73 sqM) Glucose (74-99) mg/dL POC Glucose (mg/dL) 536 H 409 H (75-99) mg/dL POC Glu Food Concession Manager ID Simon Kimbrough Taylor Calcium (8.4-10.2) mg/dL Phosphorus (2.5-4.5) mg/dL Magnesium (1.6-2.3) mg/dL Total Bilirubin (0.2-1.3) mg/dL AST (17-59) U/L ALT (21-72) U/L Alkaline Phosphatase (38-126) U/L Troponin I (0.000-0.034) ng/mL Total Protein (6.3-8.2) g/dL Albumin (3.5-5.0) g/dL Urine Color Light Yellow Urine Appearance Clear (Clear) Urine pH 5.0 (5.0-8.0) Ur Specific [place] 1.016 (1.001-1.035) Urine Protein 1+ H (Negative) Urine Glucose (UA) 4+ H (Negative) Urine Ketones 4+ H (Negative) Urine Blood Moderate H (Negative) Urine Nitrite Negative (Negative) Urine Bilirubin Negative (Negative) Urine Urobilinogen <2.0 (<2.0) mg/dL Ur Leukocyte Esterase Negative (Negative) Urine WBC 3 (0-5) /hpf Ur Squamous Epith Cells <1 (0-4) /hpf Urine Bacteria Rare H (None) /hpf Hyaline Casts 3 H (0-2) /lpf Urine Mucus Rare H (None) /hpf Acetone, Qual (Negative) - EKG Data -: EKG Interpreted by Ar EKG shows normal: sinus rhythm, axis (Rightward axis), intervals ([place] interval 174 ms, QRS duration 104 ms, both normal. QTC 547 ms, consistent with prolonged QT syndrome.), QRS complexes (Normal), ST-T waves (Normal) Rate: normal (Approximate 93 bpm) Critical Care Time Critical Care Time: Yes (45 minutes) Disposition Clinical Impression: DKA (diabetic ketoacidoses) Disposition: [facility] Condition: Critical
--- NOTE | 2018-05-21 02:15 | XR ---
EXAMINATION TYPE: XR chest 1V portable DATE OF EXAM: 05/21/2018 COMPARISON: 09/25/2017 HISTORY: Altered mental status. TECHNIQUE: Single frontal view of the chest is obtained. FINDINGS: Heart and mediastinum are normal. Lungs are clear. Diaphragm is normal. There are chest le ads. Bony thorax is intact. IMPRESSION: Normal chest. No change.
[2018-05-21] MEDS: INSULIN REGULAR 100 UNIT in SODIUM CHLORIDE 0.9% 100 ML IV SCH ×2 (02:37→18:59)
[2018-05-21] MEDS: SODIUM CHLORIDE 0.9% 1,000 ML IV SCH ×6 (02:40→11:32)
[2018-05-21 02:41] LABS: VBG PH 6.78 (7.31-7.41)
[2018-05-21 02:45] LABS: ALT 35 U/L (21-72); AST 23 U/L (17-59); Albumin 3.5 g/dL (3.5-5.0); Alkaline Phosphatase 102 U/L (38-126); Blood Urea Nitrogen 31 mg/dL (9-20); Calcium 8.4 mg/dL (8.4-10.2); Chloride 102 mmol/L (98-107); Magnesium 2.7 mg/dL (1.6-2.3); Potassium 4.6 mmol/L (3.5-5.1); Sodium 138 mmol/L (137-145); Total Bilirubin 0.3 mg/dL (0.2-1.3); Total Protein 5.5 g/dL (6.3-8.2)
[2018-05-21 03:07] LABS: Glucose 745 mg/dL (74-99)
[2018-05-21 03:08] LABS: Carbon Dioxide <5 mmol/L (22-30)
[2018-05-21 03:21] LABS: Glucose,Whole Blood 598 mg/dL (75-99)
[2018-05-21] MEDS ORDERED: SODIUM CHLORIDE 0.9% 2,000 ML IV STA (04:31)
[2018-05-21 04:32] LABS: Glucose,Whole Blood 541 mg/dL (75-99)
[2018-05-21 04:39] LABS: HCT 50.9 % (39.0-53.0); HGB 15.9 gm/dL (13.0-17.5); Hypochromasia Moderate; MCH 31.7 pg (25.0-35.0); MCHC 31.1 g/dL (31.0-37.0); MCV 101.7 fL (80.0-100.0); Mean Platelet Volume 8.2; Platelet Count 429 k/uL (150-450); RBC 5.01 m/uL (4.30-5.90); RDW 12.5 % (11.5-15.5); WBC 41.9 k/uL (4.0-11.0)
[2018-05-21 05:19] LABS: Lymphocytes # (M) 5.45 k/uL (1.0-4.8); Nucleated Red Blood Cells 0 /100 WBC (0-0)
[2018-05-21 05:20] LABS: Band Neutrophils % 22 %; Neutrophils % (M) 60 %; Total Cells Counted 200
[2018-05-21 05:21] LABS: Toxic Granulation Present
[2018-05-21 05:56] LABS: VBG PH 6.83 (7.31-7.41)
[2018-05-21 06:00] LABS: Glucose,Whole Blood 536 mg/dL (75-99)
[2018-05-21 06:16] LABS: Appearance,Urine Clear (Clear); Bacteria,Urine Rare /hpf; Bilirubin,Urine Negative (Negative); Blood,Urine Moderate (Negative); Color,Urine Light Yellow; Glucose,Urine (UA) 4+ (Negative); Hyaline Casts,Urine 3 /lpf (0-2); Leukocyte Esterase,Urine Negative (Negative); Mucus,Urine Rare /hpf; Nitrite,Urine Negative (Negative); Protein,Urine 1+ (Negative); Specific Gravity,Urine 1.016 (1.001-1.035); Squamous Epithelial Cell,Urine <1 /hpf (0-4); Urobilinogen,Urine <2.0 mg/dL (<2.0); WBC,Urine 3 /hpf (0-5)
[2018-05-21 06:35] LABS: Potassium 4.4 mmol/L (3.5-5.1)
[2018-05-21 06:36] LABS: Blood Urea Nitrogen 29 mg/dL (9-20); Calcium 7.9 mg/dL (8.4-10.2); Chloride 113 mmol/L (98-107); Phosphorus 5.7 mg/dL (2.5-4.5); Sodium 143 mmol/L (137-145)
[2018-05-21 06:48] LABS: Glucose,Whole Blood 409 mg/dL (75-99)
[2018-05-21 06:49] LABS: Ketones,Urine 4+ (Negative)
[2018-05-21 06:54] LABS: Glucose 505 mg/dL (74-99)
[2018-05-21 06:56] LABS: Carbon Dioxide <5 mmol/L (22-30)
[2018-05-21] MEDS ORDERED: NALOXONE 0.4 MG/ML 1 ML VIAL IV PRN (07:02)
[2018-05-21 08:16] LABS: Glucose,Whole Blood 346 mg/dL (75-99)
[2018-05-21 08:20] LABS: Glucose,Whole Blood 326 mg/dL (75-99)
--- NOTE | 2018-05-21 09:19 | P.CNPUL ---
History of Present Illness Consult date: 05/21/18 Requesting physician: Brown Valenzuela Reason for consult: other Chief complaint: Diabetic ketoacidosis History of present illness: This is a 22-year-old white male patient past medical history of diabetes mellitus type 1, past episodes of diabetic ketoacidosis, anxiety, depression, childhood asthma, former smoker, marijuana use, who presented to the emergency department per EMS on 05/21/2018 at 1:00 in the morning for mental status changes. Patient was noted to be more lethargic, and poorly responsive. Patient has been poorly compliant with his medications, has not been checking his sugars consistently, and taking his insulin inconsistently. 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 He also expresses suicidal ideations, he is depressed about his health conditions, not being able to get a job related to his health. He states his been staying in different places with different relatives, and has recently moved in with his parents. Denies any current smoking, only occasional EtOH use. Chest x-ray showed normal chest. Labs showed a BBC of 41.9, hemoglobin 15.9, sodium is 138, potassium is 4.6, chloride is 102, carbon dioxide was less than 5, anion gap could not be calculated, BUN was 31, creatinine is 1.67, serum glucose was 745, troponin was negative 1, serum acetone was positive. Venous blood gas was done, and showed pH of 6.78, pCO2 14 , and HCO3 of 2. Patient was severely hypothermic, with a temp of 89.4 on admission, currently it's up to 93.8. Tachycardic, with a rate of 118 BPM, room air pulse ox is 100%, pressure is 111/77. She was experiencing some abdominal discomfort, which is currently resolved, denies any difficulty breathing, no cough, no chest congestion. Patient was given IV fluids, total of 1/2 L of 0.9 normal saline, currently IV 0.9 normal saline running at 200 ML per hour, insulin drip per DKA protocol at 5 units per hour. Patient is currently in the intensive care unit, he is awake and alert, answering questions appropriately, in no acute distress. He is voiding. The venous blood gas was done, and showed a pH of 6.83, pCO2 of 22, and bicarb of 3. Follow-up labs were completed, and showed sodium of 143, potassium is 4.4, chloride is 113, CO2 less than 5, BUN of 29 and creatinine 1.15. Review of Systems All systems: negative Constitutional: Reports weakness, Denies chills, Denies fever Eyes: denies blurred vision, denies pain Ears, nose, mouth and throat: Denies headache, Denies sore throat Cardiovascular: Denies chest pain, Denies shortness of breath Respiratory: Denies cough Gastrointestinal: Denies abdominal pain, Denies diarrhea, Denies nausea, Denies vomiting Musculoskeletal: Denies myalgias Integumentary: Denies pruritus, Denies rash Neurological: Denies numbness, Denies weakness Psychiatric: Denies anxiety, Denies depression Endocrine: Denies fatigue, Denies weight change Past Medical History Past Medical History: Asthma, Diabetes Mellitus, Skin Disorder Additional Past Medical History / Comment(s): , insulin dependent diabetes oral motor apraxia;. psoriasis, previous suicidal attempts anxiety/depression, previous hospital physicians for DKA,gastroparesis. History of Any Multi-Drug Resistant Organisms: None Reported Past Surgical History: Adenoidectomy Additional Past Surgical History / Comment(s): 2002 Past Anesthesia/Blood Transfusion Reactions: No Reported Reaction Past Psychological History: Anxiety, Depression Smoking Status: Former smoker Past Alcohol Use History: None Reported Past Drug Use History: None Reported - Past Family History Mother Family Medical History: CVA/TIA Father Family Medical History: Hyperlipidemia, Hypertension Additional Family Medical History / Comment(s): . Medications and Allergies Home Medications Medication Instructions Recorded Confirmed Type Insulin Glargine [Lantus] 25 unit SQ HS 09/25/17 05/21/18 History traZODone HCL 150 mg PO HS 10/17/17 05/21/18 History INSULIN LISPRO (HumaLOG) [HumaLOG] 6 units SQ AC-TID 05/21/18 05/21/18 History Allergies Allergy/AdvReac Type Severity Reaction Status Date / Time No Known Allergies Allergy Verified 05/21/18 07:32 Physical Exam Vitals: Vital Signs Temp Pulse Resp BP Pulse Ox 05/21/18 08:14 93.8 F L 106 H 19 117/78 100 05/21/18 07:34 93.2 F L 107 H 18 122/76 99 05/21/18 06:45 92.6 F L 103 H 14 108/69 99 05/21/18 06:30 101 H 19 118/72 99 05/21/18 06:15 98 21 111/77 100 05/21/18 06:00 113 H 12 102/69 100 05/21/18 05:45 128 H 26 H 99/67 100 05/21/18 05:30 20 94/67 100 05/21/18 05:28 89.4 F L 05/21/18 05:15 121 H 23 88/53 100 05/21/18 05:00 114 H 17 92/64 100 05/21/18 04:45 114 H 18 103/68 98 05/21/18 04:00 118 H 23 92/70 100 05/21/18 03:00 88 20 95/61 05/21/18 02:00 93 25 H 105/56 05/21/18 01:42 98 31 H 106/59 94 L Intake and Output 05/20/18 05/21/18 05/21/18 22:59 06:59 14:59 Output Total 900 Balance -900 Output: Urine 900 Other: # Voids 1 Weight 51.619 kg GENERAL EXAM: Alert, pleasant 22-year-old pale thin-looking white male, comfortable in no apparent distress. HEAD: Normocephalic/atraumatic. EYES: Normal reaction of pupils, equal size. Conjunctiva pink, sclera white. NOSE: Clear with pink turbinates. THROAT: No erythema or exudates. NECK: No masses, no JVD, no thyroid enlargement, no adenopathy. CHEST: No chest wall deformity. Symmetrical expansion. LUNGS: Equal air entry with no crackles, wheeze, rhonchi or dullness. CVS: Regular rate and rhythm, normal S1 and S2, no gallops, no murmurs, no rubs ABDOMEN: Soft, nontender. No hepatosplenomegaly, normal bowel sounds, no guarding or rigidity. EXTREMITIES: No clubbing, no edema, no cyanosis, 2+ pulses and upper and lower extremities. MUSCULOSKELETAL: Muscle strength and tone normal. SPINE: No scoliosis or deformity SKIN: No rashes CENTRAL NERVOUS SYSTEM: Alert and oriented -3. No focal deficits, tone is normal in all 4 extremities. PSYCHIATRIC: Alert and oriented -3. Appropriate affect. Intact judgment and insight. Results - Laboratory Findings CBC and BMP: 05/21/18 01:48 05/21/18 05:30 Abnormal lab findings: Abnormal Labs 05/21/18 05/21/18 05/21/18 01:41 01:48 01:48 WBC MCV Neutrophils # (Manual) Lymphocytes # (Manual) Monocytes # (Manual) VBG pH 6.78 L* VBG pCO2 14 L* VBG HCO3 2 L* Chloride Carbon Dioxide <5 L* BUN 31 H Creatinine 1.67 H Glucose 745 H* POC Glucose (mg/dL) >600 H Calcium Phosphorus Magnesium 2.7 H Total Protein 5.5 L Urine Protein Urine Glucose (UA) Urine Ketones Urine Blood Urine Bacteria Hyaline Casts Urine Mucus 05/21/18 05/21/18 05/21/18 01:48 03:19 04:30 WBC 41.9 H MCV 101.7 H Neutrophils # (Manual) 34.30 H Lymphocytes # (Manual) 5.45 H Monocytes # (Manual) 2.10 H VBG pH VBG pCO2 VBG HCO3 Chloride Carbon Dioxide BUN Creatinine Glucose POC Glucose (mg/dL) 598 H 541 H Calcium Phosphorus Magnesium Total Protein Urine Protein Urine Glucose (UA) Urine Ketones Urine Blood Urine Bacteria Hyaline Casts Urine Mucus 05/21/18 05/21/18 05/21/18 05:30 05:30 05:48 WBC MCV Neutrophils # (Manual) Lymphocytes # (Manual) Monocytes # (Manual) VBG pH 6.83 L* VBG pCO2 22 L VBG HCO3 3 L* Chloride 113 H Carbon Dioxide <5 L* BUN 29 H Creatinine Glucose 505 H* POC Glucose (mg/dL) Calcium 7.9 L Phosphorus 5.7 H Magnesium Total Protein Urine Protein 1+ H Urine Glucose (UA) 4+ H Urine Ketones 4+ H Urine Blood Moderate H Urine Bacteria Rare H Hyaline Casts 3 H Urine Mucus Rare H 05/21/18 05/21/18 05/21/18 05:59 06:46 07:51 WBC MCV Neutrophils # (Manual) Lymphocytes # (Manual) Monocytes # (Manual) VBG pH VBG pCO2 VBG HCO3 Chloride Carbon Dioxide BUN Creatinine Glucose POC Glucose (mg/dL) 536 H 409 H 346 H Calcium Phosphorus Magnesium Total Protein Urine Protein Urine Glucose (UA) Urine Ketones Urine Blood Urine Bacteria Hyaline Casts Urine Mucus 05/21/18 08:09 WBC MCV Neutrophils # (Manual) Lymphocytes # (Manual) Monocytes # (Manual) VBG pH VBG pCO2 VBG HCO3 Chloride Carbon Dioxide BUN Creatinine Glucose POC Glucose (mg/dL) 326 H Calcium Phosphorus Magnesium Total Protein Urine Protein Urine Glucose (UA) Urine Ketones Urine Blood Urine Bacteria Hyaline Casts Urine Mucus - Diagnostic Findings Chest x-ray: report reviewed, image reviewed Additional studies: EKG reviewed Assessment and Plan Plan: Assessment: #1. Acute diabetic ketoacidosis related to medical noncompliance #2. Severe anion gap metabolic acidosis related to DKA #3. Leukocytosis likely related to the above #4. Diabetes mellitus type 1 diagnosed 4 years ago, history of gastroparesis and previous episodes of DKA #5. Childhood asthma, currently inactive #6. Anxiety, depression #7. Suicidal ideations #8. Previous history of suicidal attempts and hospitalizations for severe depression #9. Marijuana use Plan: Continue the IV fluids, and insulin infusion per DKA protocol, recheck electrolytes and renal profile in 4 hours. Patient is more awake, he is responding appropriately, hypothermia is improving, patient is voiding. Denies any difficulty breathing, no chest pain, no abdominal pain, no nausea or vomiting, no diarrhea. GI and DVT prophylaxis, we will consult psychiatry for suicidal ideations. Patient will remain in the ICU. We'll continue to monitor I performed a history & physical examination of the patient and discussed their management with my nurse practitioner, Alysha Kamara. I reviewed the nurse practitioner's note and agree with the documented findings and plan of care. Lung sounds are positive for clear breath sounds. The findings and the impression was discussed with the patient. I attest to the documentation by the nurse practitioner. Time with Patient: Greater than 30
[2018-05-21 09:40] LABS: Glucose,Whole Blood 332 mg/dL (75-99)
[2018-05-21 10:05] LABS: Anion Gap 17 mmol/L; Blood Urea Nitrogen 26 mg/dL (9-20); Chloride 116 mmol/L (98-107); Glucose 253 mg/dL (74-99); Phosphorus 2.4 mg/dL (2.5-4.5); Sodium 140 mmol/L (137-145)
[2018-05-21 10:23] LABS: Carbon Dioxide 7 mmol/L (22-30)
[2018-05-21 10:34] VITALS: BMI 15.4
[2018-05-21 10:49] LABS: Glucose,Whole Blood 246 mg/dL (75-99)
[2018-05-21] MEDS: D5W WITH KCL 20 MEQ/L 1,000 ML IV SCH ×3 (11:14→22:01)
[2018-05-21 11:34] LABS: Glucose,Whole Blood 201 mg/dL (75-99)
[2018-05-21 12:27] LABS: Glucose,Whole Blood 201 mg/dL (75-99)
[2018-05-21 13:19] LABS: Glucose,Whole Blood 212 mg/dL (75-99)
[2018-05-21] MEDS: INSULIN ASPART 100 UNIT/ML 1 ML 10 ML VIAL SQ SCH ×2 (13:24→17:39)
[2018-05-21 14:27] LABS: Glucose,Whole Blood 226 mg/dL (75-99)
--- NOTE | 2018-05-21 14:27 | P.CN ---
Psychiatric Consult - . Consult date: 05/21/18 Consult:: 05/21/18 12:52 Suicidal ideation? Assessment and Plan Assessment: History of present illness: This is a 22-year-old white male patient past medical history of diabetes mellitus type 1, past episodes of diabetic ketoacidosis, anxiety, depression, childhood asthma, former smoker, marijuana use, who presented to the emergency department per EMS on 05/21/2018 at 1:00 in the morning for mental status changes. Patient was noted to be more lethargic, and poorly responsive. Patient has been poorly compliant with his medications, has not been checking his sugars consistently, and taking his insulin inconsistently. He states he has not been able to get his ID from the workers compensation legal secretary, has not been able to see a doctor. He also expresses suicidal ideations, he is depressed about his health conditions, not being able to get a job related to his health. He states his been staying in different places with different relatives, and has recently moved in with his parents. Denies any current smoking, only occasional EtOH use. Chest x-ray showed normal chest. Labs showed a BBC of 41.9, hemoglobin 15.9, sodium is 138, potassium is 4.6, chloride is 102, carbon dioxide was less than 5, anion gap could not be calculated, BUN was 31, creatinine is 1.67, serum glucose was 745, troponin was negative 1, serum acetone was positive. Venous blood gas was done, and showed pH of 6.78, pCO2 14 , and HCO3 of 2. Patient was severely hypothermic, with a temp of 89.4 on admission, currently it's up to 93.8. Tachycardic, with a rate of 118 BPM, room air pulse ox is 100%, pressure is 111/77. PAST PSYCHIATRIC HISTORY: Previous hospitalization at [facility] following a suicide attempt by overdosing on insulin. Also, admitted to [facility] twice with last admission in February 2017; treated with Prozac and Wellbutrin XL. However, pt did not f/u with outpatient psychiatric services and was discharged from [address] [place] [address] on 05/09/2017 with below medications. It is obvious that she has not followed up in community mental health. Discharge Medication List FLUoxetine HCL [PROzac] 40 mg PO DAILY #30 cap 05/09/17 [Rx] Insulin Aspart [NovoLOG (formulary)] 6 unit SQ AC-TID #1 vial 05/09/17 [Rx] Insulin Detemir [Levemir] 18 unit SQ DAILY #1 syr 05/09/17 [Rx] buPROPion XL [Wellbutrin XL] 300 mg PO DAILY #30 tab.er.24h 05/09/17 [Rx] hydrOXYzine PAMOATE [Vistaril] 25 mg PO TID PRN #90 cap 05/09/17 [Rx] traZODone HCL [Desyrel] 200 mg PO HS #30 tab 05/09/17 [Rx] Home Medications Medication Instructions Recorded Confirmed Insulin Glargine [Lantus] 25 unit SQ HS 09/25/17 03/08/18 traZODone HCL 150 mg PO HS 10/17/17 03/08/18 Insulin Aspart [NovoLOG See Protocol SQ AC-TID 03/08/18 03/08/18 (formulary)] Previous Rx's Medication Instructions Recorded Erythromycin Ophth Oint [Romycin 1 applic LEFT EYE QID 7 Days #1 04/07/18 Ophth Oint] tube Allergies Allergy/AdvReac Type Severity Reaction Status Date / Time No Known Allergies Allergy Verified 04/07/18 11:19 Past Medical History Past Medical History: Asthma, Diabetes Mellitus, Skin Disorder Additional Past Medical History / Comment(s): , insulin dependent diabetes oral motor apraxia;. psoriasis, previous suicidal attempts anxiety/depression, previous hospital physicians for DKA,gastroparesis. History of Any Multi-Drug Resistant Organisms: None Reported Past Surgical History: Adenoidectomy Additional Past Surgical History / Comment(s): 2002 Past Anesthesia/Blood Transfusion Reactions: No Reported Reaction Past Psychological History: Anxiety, Depression Smoking Status: Former smoker Past Alcohol Use History: None Reported Past Drug Use History: None Reported - Past Family History Mother Family Medical History: CVA/TIA Father Family Medical History: Hyperlipidemia, Hypertension Additional Family Medical History / Comment(s): . Mental Status Examination - this is a 22-year-old male who lives with his father who stated he's not been able to get follow-up care due to the [facility] not giving him an ID due to the fact he does not have a student ID nor can he get transcripts from the school that he attended. He states he would take his medication if he had ID could be serviced by [facility]. His mother is not in his life who lives with a roommate. His father is at home and he does not know how he got to the hospital today. General Appearance: [disheveled, appears stated age] Speech/Language: [slow,hesitant, soft, ] Attitude/Behavior: [withdrawn, indifferent] Mood: [depressed 8 out of 10, anxious 10 out of 10, hopelessness] Affect: [ flat, blunted constricted] Orientation: [Not oriented to time, but is person, place situation] Thought Content: [wnl Risk Factors: [He has had thoughts in the past but this was not a suicide attempt today denies suicidal (ideations, plan), and/or Homicidal (ideations, plan) Perception: [wnl, denies hallucinations (auditory, visual, tactile), other] Thought Processes: [goal-oriented he wants help and cannot get up from the [facility] to get an ID for him so that he can have follow-up care at [facility]. He has not been on any medications due to the fact he cannot have an ID Concentration/Attention Span: [impaired] [Per observation and interview with the patient] Recent Memory: [wnl Remote Memory: [wnl] [past events, as related history] Intelligence: [below average] [based on history, based on vocabulary, syntax, grammar, and content] Judgement: [poor] [per patient's behavior/history of present illness] Insight: [poor] [understanding severity of illness/history of present illness] Psychiatric impression: Major depressive disorder recurrent severe in nature and diabetes. All in nature Psychiatric recommendation: He agreed to come to the psychiatric unit once he is medically stable and would highly recommend that we find this young man some ID. He states he has his certificate but the only thing he is lacking as a school ID or transcripts. Thank you for the consult William Gaxiola D.O. PhD (1) Depression Current Visit: No Status: Acute Code(s): F32.9 - MAJOR DEPRESSIVE DISORDER, SINGLE EPISODE, UNSPECIFIED SNOMED Code(s): 63310625 Time with Patient: Less than 30
[2018-05-21 15:48] LABS: Glucose,Whole Blood 211 mg/dL (75-99)
[2018-05-21 15:52] LABS: Anion Gap 11 mmol/L; Blood Urea Nitrogen 23 mg/dL (9-20); Calcium 8.2 mg/dL (8.4-10.2); Carbon Dioxide 13 mmol/L (22-30); Chloride 112 mmol/L (98-107); Glucose 220 mg/dL (74-99); Potassium 4.1 mmol/L (3.5-5.1); Sodium 136 mmol/L (137-145)
[2018-05-21 16:16] LABS: Glucose,Whole Blood 207 mg/dL (75-99)
[2018-05-21 17:17] LABS: Glucose,Whole Blood 213 mg/dL (75-99)
[2018-05-21 18:17] LABS: Glucose,Whole Blood 203 mg/dL (75-99)
--- NOTE | 2018-05-21 18:44 | HP ---
HISTORY AND PHYSICAL CHIEF COMPLAINT: Nausea, vomiting, dehydration. HISTORY OF PRESENT ILLNESS: This is another admission for this 22-year-old noncompliant type 1 insulin-dependent diabetic. He has not been taking his insulin of late. He came into the emergency room with a venous pH of 7.83 and a blood sugar approaching 1000. REVIEW OF SYSTEMS: He is awake and alert. He is extremely dehydrated. Past medical history, family history, and personal and social histories are otherwise unremarkable or noncontributory. PHYSICAL EXAMINATION: Blood pressure is 108/74 with a pulse of 116, respirations of 40. He is afebrile. In general he appeared to be extremely dehydrated. Head, ears, eyes, nose, mouth and throat were otherwise normal. Chest was clear. Cardiac exam demonstrated sinus tachycardia. The abdomen was soft and nontender without any masses or visceromegaly. Extremities were normal. Neurologically he was intact. IMPRESSION: 1. Diabetic ketoacidosis. 2. Profound metabolic acidosis. 3. Severe dehydration. PLAN: Intensive care management with insulin drip and consult with Intensive Medicine. MMSHANEL / TRAMN: [id number] /
[2018-05-21 19:11] LABS: Glucose,Whole Blood 205 mg/dL (75-99)
[2018-05-21 20:06] LABS: Anion Gap 8 mmol/L; Blood Urea Nitrogen 18 mg/dL (9-20); Calcium 8.4 mg/dL (8.4-10.2); Carbon Dioxide 16 mmol/L (22-30); Chloride 111 mmol/L (98-107); Glucose 207 mg/dL (74-99); Potassium 3.7 mmol/L (3.5-5.1); Sodium 135 mmol/L (137-145)
[2018-05-21 20:20] LABS: Glucose,Whole Blood 203 mg/dL (75-99)
[2018-05-21] MEDS ORDERED: INSULIN DETEMIR 100 UNIT/ML 10 ML VIAL SQ SCH (21:00)
[2018-05-21] MEDS ORDERED: traZODone HCL 100 MG TAB PO SCH (21:00)
[2018-05-21 21:12] LABS: Glucose,Whole Blood 186 mg/dL (75-99)
[2018-05-21] MEDS ORDERED: traZODone HCL 50 MG TAB PO SCH ×2 (21:45→22:15)
[2018-05-21 22:13] LABS: Glucose,Whole Blood 185 mg/dL (75-99)
[2018-05-21 23:13] LABS: Glucose,Whole Blood 173 mg/dL (75-99)
[2018-05-22 00:04] LABS: Anion Gap 7 mmol/L; Blood Urea Nitrogen 17 mg/dL (9-20); Calcium 8.3 mg/dL (8.4-10.2); Carbon Dioxide 18 mmol/L (22-30); Chloride 109 mmol/L (98-107); Glucose 161 mg/dL (74-99); Potassium 3.3 mmol/L (3.5-5.1); Sodium 134 mmol/L (137-145)
[2018-05-22 00:12] LABS: Glucose,Whole Blood 157 mg/dL (75-99)
[2018-05-22] MEDS: D5-0.45% NACL WITH KCL 20MEQ/L 1,000 ML IV SCH ×2 (00:31→07:18)
[2018-05-22 01:12] LABS: Glucose,Whole Blood 139 mg/dL (75-99)
[2018-05-22 02:09] LABS: Glucose,Whole Blood 128 mg/dL (75-99)
[2018-05-22 03:17] LABS: Glucose,Whole Blood 163 mg/dL (75-99)
[2018-05-22 04:14] LABS: Glucose,Whole Blood 151 mg/dL (75-99)
[2018-05-22 05:13] LABS: Glucose,Whole Blood 151 mg/dL (75-99)
[2018-05-22 05:38] LABS: Anion Gap 6 mmol/L; Blood Urea Nitrogen 15 mg/dL (9-20); Calcium 8.7 mg/dL (8.4-10.2); Carbon Dioxide 19 mmol/L (22-30); Chloride 114 mmol/L (98-107); Glucose 159 mg/dL (74-99); Magnesium 2.1 mg/dL (1.6-2.3); Phosphorus 1.4 mg/dL (2.5-4.5); Potassium 3.6 mmol/L (3.5-5.1); Sodium 139 mmol/L (137-145)
[2018-05-22 05:45] LABS: Basophils % (A) 0 %; Eosinophils # (A) 0.1 k/uL (0-0.7); Eosinophils % (A) 1 %; HCT 39.9 % (39.0-53.0); HGB 13.9 gm/dL (13.0-17.5); Lymphocytes # (A) 1.3 k/uL (1.0-4.8); Lymphocytes % (A) 10 %; MCH 31.1 pg (25.0-35.0); MCHC 34.9 g/dL (31.0-37.0); Mean Platelet Volume 6.6; Monocytes # (A) 0.8 k/uL (0-1.0); Monocytes % (A) 6 %; Neutrophils # (A) 11.5 k/uL (1.3-7.7); Neutrophils % (A) 83 %; Platelet Count 237 k/uL (150-450); RBC 4.47 m/uL (4.30-5.90); RDW 12.5 % (11.5-15.5); WBC 13.9 k/uL (4.0-11.0)
[2018-05-22] MEDS ORDERED: INSULIN NPH 300 UNIT/3 ML VIAL SQ ONE (06:00)
[2018-05-22 06:12] LABS: MCV 89.2 fL (80.0-100.0)
[2018-05-22 06:14] LABS: Glucose,Whole Blood 196 mg/dL (75-99)
[2018-05-22 07:15] LABS: Glucose,Whole Blood 194 mg/dL (75-99)
[2018-05-22] MEDS: INSULIN ASPART 100 UNIT/ML 1 ML 10 ML VIAL SQ SCH (07:18)
[2018-05-22] MEDS ORDERED: Potassium Replacement Protocol 1 EACH MISC MISCELLANE PRN (07:28)
[2018-05-22] MEDS ORDERED: INSULIN ASPART 100 UNIT/ML 1 ML 10 ML VIAL SQ SCH (07:30)
[2018-05-22] MEDS ORDERED: POTASSIUM CHLORIDE ER 20 MEQ TAB.ER PO SCH (08:00)
[2018-05-22 08:10] VITALS: TEMP 97.5
--- NOTE | 2018-05-22 09:28 | P.PN ---
Subjective Progress Note Date: 05/22/18 Principal diagnosis: Diabetic ketoacidosis This is a 22-year-old white male patient past medical history of diabetes mellitus type 1, past episodes of diabetic ketoacidosis, anxiety, depression, childhood asthma, former smoker, marijuana use, who presented to the emergency department per EMS on 05/21/2018 at 1:00 in the morning for mental status changes. Patient was noted to be more lethargic, and poorly responsive. Patient has been poorly compliant with his medications, has not been checking his sugars consistently, and taking his insulin inconsistently. He states he has not been able to get his ID from the state farm agent team member, has not been able to see a doctor. He also expresses suicidal ideations, he is depressed about his health conditions, not being able to get a job related to his health. He states his been staying in different places with different relatives, and has recently moved in with his parents. Denies any current smoking, only occasional EtOH use. Chest x-ray showed normal chest. Labs showed a BBC of 41.9, hemoglobin 15.9, sodium is 138, potassium is 4.6, chloride is 102, carbon dioxide was less than 5, anion gap could not be calculated, BUN was 31, creatinine is 1.67, serum glucose was 745, troponin was negative 1, serum acetone was positive. Venous blood gas was done, and showed pH of 6.78, pCO2 14 , and HCO3 of 2. Patient was severely hypothermic, with a temp of 89.4 on admission, currently it's up to 93.8. Tachycardic, with a rate of 118 BPM, room air pulse ox is 100%, pressure is 111/77. She was experiencing some abdominal discomfort, which is currently resolved, denies any difficulty breathing, no cough, no chest congestion. Patient was given IV fluids, total of 1/2 L of 0.9 normal saline, currently IV 0.9 normal saline running at 200 ML per hour, insulin drip per DKA protocol at 5 units per hour. Patient is currently in the intensive care unit, he is awake and alert, answering questions appropriately, in no acute distress. He is voiding. The venous blood gas was done, and showed a pH of 6.83, pCO2 of 22, and bicarb of 3. Follow-up labs were completed, and showed sodium of 143, potassium is 4.4, chloride is 113, CO2 less than 5, BUN of 29 and creatinine 1.15. Objective - Vital Signs Vital signs: Vital Signs Temp 97.5 F L 05/22/18 08:00 Pulse 109 H 05/22/18 08:00 Resp 12 05/22/18 08:00 BP 110/67 05/22/18 08:00 Pulse Ox 96 05/22/18 08:00 Intake & Output 05/21/18 05/22/18 05/22/18 18:59 06:59 18:59 Intake Total 1785.27 1846.170 300 Output Total 2800 2800 Balance -1014.73 -953.830 300 Weight 51.6 kg 55.2 kg Intake: IV 1700 1800 300 D5-0.45% NaCl with KCl 1200 300 20Meq/l 1,000 ml @ 150 mls/hr IV .Q6H40M YAEL Rx# :[id number] D5w with KCl 20 Meq/l 1, 900 600 000 ml @ 150 mls/hr IV . Q6H40M YAEL Rx#:[id number] Sodium Chloride 0.9% 1, 800 000 ml @ 200 mls/hr IV . Q5H YAEL Rx#:[id number] Intake, IV Titration 85.27 46.170 Amount Insulin Regular 100 unit 85.27 46.170 In Sodium Chloride 0.9% 100 ml @ 0.1 UNITS/KG/HR 5.21 mls/hr IV .Q11C60H YAEL Rx#:[id number] Output: Urine 2800 2800 Other: Voiding Method Urinal # Voids 1 - Exam GENERAL EXAM: Alert, pleasant 22-year-old pale thin-looking white male, comfortable in no apparent distress. HEAD: Normocephalic/atraumatic. EYES: Normal reaction of pupils, equal size. Conjunctiva pink, sclera white. NOSE: Clear with pink turbinates. THROAT: No erythema or exudates. NECK: No masses, no JVD, no thyroid enlargement, no adenopathy. CHEST: No chest wall deformity. Symmetrical expansion. LUNGS: Equal air entry with no crackles, wheeze, rhonchi or dullness. CVS: Regular rate and rhythm, normal S1 and S2, no gallops, no murmurs, no rubs ABDOMEN: Soft, nontender. No hepatosplenomegaly, normal bowel sounds, no guarding or rigidity. EXTREMITIES: No clubbing, no edema, no cyanosis, 2+ pulses and upper and lower extremities. MUSCULOSKELETAL: Muscle strength and tone normal. SPINE: No scoliosis or deformity SKIN: No rashes CENTRAL NERVOUS SYSTEM: Alert and oriented -3. No focal deficits, tone is normal in all 4 extremities. PSYCHIATRIC: Alert and oriented -3. Appropriate affect. Intact judgment and insight. - Labs CBC & Chem 7: 05/22/18 04:36 05/22/18 04:36 Labs: Abnormal Lab Results - Last 24 Hours (Table) 05/21/18 05/21/18 05/21/18 Range/Units 09:27 09:42 10:38 WBC (4.0-11.0) k/uL Neutrophils # (1.3-7.7) k/uL Sodium (137-145) mmol/L Potassium (3.5-5.1) mmol/L Chloride 116 H (98-107) mmol/L Carbon Dioxide 7 L* (22-30) mmol/L BUN 26 H (9-20) mg/dL Creatinine (0.66-1.25) mg/dL Glucose 253 H (74-99) mg/dL POC Glucose (mg/dL) 332 H 246 H (75-99) mg/dL Calcium (8.4-10.2) mg/dL Phosphorus 2.4 L (2.5-4.5) mg/dL 05/21/18 05/21/18 05/21/18 Range/Units 11:22 12:16 13:07 WBC (4.0-11.0) k/uL Neutrophils # (1.3-7.7) k/uL Sodium (137-145) mmol/L Potassium (3.5-5.1) mmol/L Chloride (98-107) mmol/L Carbon Dioxide (22-30) mmol/L BUN (9-20) mg/dL Creatinine (0.66-1.25) mg/dL Glucose (74-99) mg/dL POC Glucose (mg/dL) 201 H 201 H 212 H (75-99) mg/dL Calcium (8.4-10.2) mg/dL Phosphorus (2.5-4.5) mg/dL 05/21/18 05/21/18 05/21/18 Range/Units 14:16 15:17 15:18 WBC (4.0-11.0) k/uL Neutrophils # (1.3-7.7) k/uL Sodium 136 L (137-145) mmol/L Potassium (3.5-5.1) mmol/L Chloride 112 H (98-107) mmol/L Carbon Dioxide 13 L (22-30) mmol/L BUN 23 H (9-20) mg/dL Creatinine 0.55 L (0.66-1.25) mg/dL Glucose 220 H (74-99) mg/dL POC Glucose (mg/dL) 226 H 211 H (75-99) mg/dL Calcium 8.2 L (8.4-10.2) mg/dL Phosphorus (2.5-4.5) mg/dL 05/21/18 05/21/18 05/21/18 Range/Units 16:04 17:06 18:05 WBC (4.0-11.0) k/uL Neutrophils # (1.3-7.7) k/uL Sodium (137-145) mmol/L Potassium (3.5-5.1) mmol/L Chloride (98-107) mmol/L Carbon Dioxide (22-30) mmol/L BUN (9-20) mg/dL Creatinine (0.66-1.25) mg/dL Glucose (74-99) mg/dL POC Glucose (mg/dL) 207 H 213 H 203 H (75-99) mg/dL Calcium (8.4-10.2) mg/dL Phosphorus (2.5-4.5) mg/dL 05/21/18 05/21/18 05/21/18 Range/Units 19:00 19:36 20:08 WBC (4.0-11.0) k/uL Neutrophils # (1.3-7.7) k/uL Sodium 135 L (137-145) mmol/L Potassium (3.5-5.1) mmol/L Chloride 111 H (98-107) mmol/L Carbon Dioxide 16 L (22-30) mmol/L BUN (9-20) mg/dL Creatinine 0.58 L (0.66-1.25) mg/dL Glucose 207 H (74-99) mg/dL POC Glucose (mg/dL) 205 H 203 H (75-99) mg/dL Calcium (8.4-10.2) mg/dL Phosphorus (2.5-4.5) mg/dL 05/21/18 05/21/18 05/21/18 Range/Units 21:01 22:01 22:59 WBC (4.0-11.0) k/uL Neutrophils # (1.3-7.7) k/uL Sodium 134 L (137-145) mmol/L Potassium 3.3 L (3.5-5.1) mmol/L Chloride 109 H (98-107) mmol/L Carbon Dioxide 18 L (22-30) mmol/L BUN (9-20) mg/dL Creatinine 0.50 L (0.66-1.25) mg/dL Glucose 161 H (74-99) mg/dL POC Glucose (mg/dL) 186 H 185 H (75-99) mg/dL Calcium 8.3 L (8.4-10.2) mg/dL Phosphorus (2.5-4.5) mg/dL 05/21/18 05/22/18 05/22/18 Range/Units 23:02 00:01 01:01 WBC (4.0-11.0) k/uL Neutrophils # (1.3-7.7) k/uL Sodium (137-145) mmol/L Potassium (3.5-5.1) mmol/L Chloride (98-107) mmol/L Carbon Dioxide (22-30) mmol/L BUN (9-20) mg/dL Creatinine (0.66-1.25) mg/dL Glucose (74-99) mg/dL POC Glucose (mg/dL) 173 H 157 H 139 H (75-99) mg/dL Calcium (8.4-10.2) mg/dL Phosphorus (2.5-4.5) mg/dL 05/22/18 05/22/18 05/22/18 Range/Units 01:57 03:05 04:02 WBC (4.0-11.0) k/uL Neutrophils # (1.3-7.7) k/uL Sodium (137-145) mmol/L Potassium (3.5-5.1) mmol/L Chloride (98-107) mmol/L Carbon Dioxide (22-30) mmol/L BUN (9-20) mg/dL Creatinine (0.66-1.25) mg/dL Glucose (74-99) mg/dL POC Glucose (mg/dL) 128 H 163 H 151 H (75-99) mg/dL Calcium (8.4-10.2) mg/dL Phosphorus (2.5-4.5) mg/dL 05/22/18 05/22/18 05/22/18 Range/Units 04:36 04:36 05:02 WBC 13.9 H (4.0-11.0) k/uL Neutrophils # 11.5 H (1.3-7.7) k/uL Sodium (137-145) mmol/L Potassium (3.5-5.1) mmol/L Chloride 114 H (98-107) mmol/L Carbon Dioxide 19 L (22-30) mmol/L BUN (9-20) mg/dL Creatinine 0.46 L (0.66-1.25) mg/dL Glucose 159 H (74-99) mg/dL POC Glucose (mg/dL) 151 H (75-99) mg/dL Calcium (8.4-10.2) mg/dL Phosphorus 1.4 L (2.5-4.5) mg/dL 05/22/18 05/22/18 Range/Units 06:02 07:04 WBC (4.0-11.0) k/uL Neutrophils # (1.3-7.7) k/uL Sodium (137-145) mmol/L Potassium (3.5-5.1) mmol/L Chloride (98-107) mmol/L Carbon Dioxide (22-30) mmol/L BUN (9-20) mg/dL Creatinine (0.66-1.25) mg/dL Glucose (74-99) mg/dL POC Glucose (mg/dL) 196 H 194 H (75-99) mg/dL Calcium (8.4-10.2) mg/dL Phosphorus (2.5-4.5) mg/dL Assessment and Plan Plan: Assessment: #1. Acute diabetic ketoacidosis related to medical noncompliance #2. Severe anion gap metabolic acidosis related to DKA, improved #3. Leukocytosis likely related to the above, improved #4. Diabetes mellitus type 1 diagnosed 4 years ago, history of gastroparesis and previous episodes of DKA #5. Childhood asthma, currently inactive #6. Anxiety, depression #7. Suicidal ideations #8. Previous history of suicidal attempts and hospitalizations for severe depression #9. Marijuana use Plan: Patient has been transitioned to subcutaneous insulin, insulin drip has been discontinued, anion gap has closed. Patient is tolerating oral diet. Hemodynamically stable, he has a sitter at the bedside, has been evaluated by psychiatry, and recommended inpatient psychiatric treatment. From pulmonary/ critical care perspective patient is stable, transferred out of the intensive care unit today, and possibly to inpatient psychiatric unit. I performed a history & physical examination of the patient and discussed their management with my nurse practitioner, Alysha Kamara. I reviewed the nurse practitioner's note and agree with the documented findings and plan of care. Lung sounds are positive for clear breath sounds. The findings and the impression was discussed with the patient. I attest to the documentation by the nurse practitioner. Time with Patient: Less than 30
[2018-05-22 11:31] VITALS: BP 114/79; PULSE 105; RESP 10
--- NOTE | 2018-05-23 16:49 | DS ---
DISCHARGE SUMMARY CHIEF COMPLAINT: DKA. HISTORY OF PRESENT ILLNESS AND PHYSICAL EXAM: Details of this man's history remains history and physical can be found in the initial workup. LABORATORY STUDIES: While he was in a hospital he had laboratory studies, details of which can be found in the laboratory section of his chart. COURSE IN HOSPITAL: After admission he was placed on bedrest in ICU, started on IV fluids and insulin drip. His laboratory studies improved and he was doing well. It was felt that he could be discharged on the , but psychiatry recommended he be inpatient and he was moved to the psychiatry unit. FINAL DIAGNOSIS: 1. Diabetic ketoacidosis. 2. Dehydration. 3. Uncontrolled type 1 insulin-dependent diabetes mellitus. 4. Major depression. OPERATIONS: None. CONSULTATIONS: Psychiatry. He is improved. GRACE / ALDEN: [id number] /
== END 2018-05-22 12:31 | DRG 638 ==
LOC: EC 01:37 → 2SICU 07:02
PROVIDERS: ADMIT Family Medicine; ATTEND Family Medicine
DX: E10.10 Type 1 diabetes mellitus with ketoacidosis without coma (principal); F33.2 Major depressive disorder, recurrent severe without psychotic features; R45.851 Suicidal ideations; E10.43 Type 1 diabetes mellitus with diabetic autonomic (poly)neuropathy; D72.829 Elevated white blood cell count, unspecified; E86.0 Dehydration; F41.9 Anxiety disorder, unspecified; J45.909 Unspecified asthma, uncomplicated; K31.84 Gastroparesis; T38.3X6A Underdosing of insulin and oral hypoglycemic [antidiabetic] drugs, initial encounter; Z79.4 Long term (current) use of insulin; Z82.49 Family history of ischemic heart disease and other diseases of the circulatory system; Z87.891 Personal history of nicotine dependence; Z91.19 Patient's noncompliance with other medical treatment and regimen; T68.XXXA Hypothermia, initial encounter; Z91.5 Personal history of self-harm; Z82.3 Family history of stroke; Z79.899 Other long term (current) drug therapy
CPT/HCPCS: 36415; 71045; 80048; 80051; 80053; 81001; 82009; 82565; 82803; 82947; 83036; 83735; 84100; 84484; 84520; 85025; 93005; 96360; 96361; 99285

== ENCOUNTER 2018-05-22 11:18 | Inpatient (IN) | payer MEDICAID ==
[2018-05-22] MEDS ORDERED: hydrOXYzine PAMOATE 25 MG CAP PO PRN (12:13)
--- NOTE | 2018-05-22 12:15 | P.HP ---
Psychiatric H&P - . H&P Date: 05/22/18 History & Physical: Allergies Allergy/AdvReac Type Severity Reaction Status Date / Time No Known Allergies Allergy Verified 05/21/18 07:32 Intake & Output 05/21/18 05/22/18 05/22/18 18:59 06:59 18:59 Weight 56.262 kg Assessment and Plan Assessment: This is a 22-year-old white male patient past medical history of diabetes mellitus type 1, past episodes of diabetic ketoacidosis, anxiety, depression, childhood asthma, former smoker, marijuana use, who presented to the emergency department per EMS on 05/21/2018 at 1:00 in the morning for mental status changes. Patient was noted to be more lethargic, and poorly responsive. Patient has been poorly compliant with his medications, has not been checking his sugars consistently, and taking his insulin inconsistently. He states he has not been able to get his ID from the church secretary, has not been able to see a doctor. He also expresses suicidal ideations, he is depressed about his health conditions, not being able to get a job related to his health. He states his been staying in different places with different relatives, and has recently moved in with his parents. Denies any current smoking, only occasional EtOH use. Chest x-ray showed normal chest. Labs showed a BBC of 41.9, hemoglobin 15.9, sodium is 138, potassium is 4.6, chloride is 102, carbon dioxide was less than 5, anion gap could not be calculated, BUN was 31, creatinine is 1.67, serum glucose was 745, troponin was negative 1, serum acetone was positive. Venous blood gas was done, and showed pH of 6.78, pCO2 14 , and HCO3 of 2. Patient was severely hypothermic, with a temp of 89.4 on admission, currently it's up to 93.8. Tachycardic, with a rate of 118 BPM, room air pulse ox is 100%, pressure is 111/77. PAST PSYCHIATRIC HISTORY: Previous hospitalization at [facility] following a suicide attempt by overdosing on insulin. Also, admitted to [facility] twice with last admission in February 2017; treated with Prozac and Wellbutrin XL. However, pt did not f/u with outpatient psychiatric services and was discharged from [address] [place] [address] on 05/09/2017 with below medications. It is obvious that she has not followed up in community mental health. Discharge Medication List FLUoxetine HCL [PROzac] 40 mg PO DAILY #30 cap 05/09/17 [Rx] Insulin Aspart [NovoLOG (formulary)] 6 unit SQ AC-TID #1 vial 05/09/17 [Rx] Insulin Detemir [Levemir] 18 unit SQ DAILY #1 syr 05/09/17 [Rx] buPROPion XL [Wellbutrin XL] 300 mg PO DAILY #30 tab.er.24h 05/09/17 [Rx] hydrOXYzine PAMOATE [Vistaril] 25 mg PO TID PRN #90 cap 05/09/17 [Rx] traZODone HCL [Desyrel] 200 mg PO HS #30 tab 05/09/17 [Rx] Home Medications Medication Instructions Recorded Confirmed Insulin Glargine [Lantus] 25 unit SQ HS 09/25/17 03/08/18 traZODone HCL 150 mg PO HS 10/17/17 03/08/18 Insulin Aspart [NovoLOG See Protocol SQ AC-TID 03/08/18 03/08/18 (formulary)] Previous Rx's Medication Instructions Recorded Erythromycin Ophth Oint [Romycin 1 applic LEFT EYE QID 7 Days #1 04/07/18 Ophth Oint] tube Allergies Allergy/AdvReac Type Severity Reaction Status Date / Time No Known Allergies Allergy Verified 04/07/18 11:19 Past Medical History Past Medical History: Asthma, Diabetes Mellitus, Skin Disorder Additional Past Medical History / Comment(s): , insulin dependent diabetes oral motor apraxia;. psoriasis, previous suicidal attempts anxiety/depression, previous hospital physicians for DKA,gastroparesis. History of Any Multi-Drug Resistant Organisms: None Reported Past Surgical History: Adenoidectomy Additional Past Surgical History / Comment(s): 2002 Past Anesthesia/Blood Transfusion Reactions: No Reported Reaction Past Psychological History: Anxiety, Depression Smoking Status: Former smoker Past Alcohol Use History: None Reported Past Drug Use History: None Reported - Past Family History Mother Family Medical History: CVA/TIA Father Family Medical History: Hyperlipidemia, Hypertension Additional Family Medical History / Comment(s): . Mental Status Examination - this is a 22-year-old male who lives with his father who stated he's not been able to get follow-up care due to the [facility] not giving him an ID due to the fact he does not have a student ID nor can he get transcripts from the school that he attended. He states he would take his medication if he had ID could be serviced by [facility]. His mother is not in his life who lives with a roommate. His father is at home and he does not know how he got to the hospital today. General Appearance: [disheveled, appears stated age] Speech/Language: [slow,hesitant, soft, ] Attitude/Behavior: [withdrawn, indifferent] Mood: [depressed 8 out of 10, anxious 10 out of 10, hopelessness] Affect: [ flat, blunted constricted] Orientation: [Not oriented to time, but is person, place situation] Thought Content: [wnl Risk Factors: [He has had thoughts in the past but this was not a suicide attempt today denies suicidal (ideations, plan), and/or Homicidal (ideations, plan) Perception: [wnl, denies hallucinations (auditory, visual, tactile), other] Thought Processes: [goal-oriented he wants help and cannot get up from the [facility] to get an ID for him so that he can have follow-up care at [facility]. He has not been on any medications due to the fact he cannot have an ID Concentration/Attention Span: [impaired] [Per observation and interview with the patient] Recent Memory: [wnl Remote Memory: [wnl] [past events, as related history] Intelligence: [below average] [based on history, based on vocabulary, syntax, grammar, and content] Judgement: [poor] [per patient's behavior/history of present illness] Insight: [poor] [understanding severity of illness/history of present illness] Psychiatric impression: Major depressive disorder recurrent severe in nature and diabetes. WILL START PROZAC 20 MG, WELLBUTRIN 150 MG SR, VISTARIL 25 MG PRN 8 HOURS TRAZADONE 150 MG vOLUNTARY ADMISSION 15 MINUTE CHECKS EVALUATION BY MEDICINE, PSYCHIATRY, NURSING STAFF AND OCCUPATIONAL ORTIZ AND MILIEU THERAPY (1) Major depressive disorder, recurrent Current Visit: Yes Status: Chronic Priority: High Code(s): F33.9 - MAJOR DEPRESSIVE DISORDER, RECURRENT, UNSPECIFIED SNOMED Code(s): 15854913 Time with Patient: Less than 30
[2018-05-22 12:47] LABS: Glucose,Whole Blood 313 mg/dL (75-99)
[2018-05-22] MEDS ORDERED: ACETAMINOPHEN TAB 325 MG TAB PO PRN (12:48)
[2018-05-22] MEDS ORDERED: MAG HYDROX/AL HYDROX/SIMETH 30 ML CUP PO PRN (12:48)
[2018-05-22] MEDS ORDERED: MAGNESIUM HYDROXIDE 2,400 MG/10 ML CUP PO PRN (12:48)
[2018-05-22] MEDS: INSULIN ASPART 100 UNIT/ML 1 ML 10 ML VIAL SQ SCH ×6 (13:12→21:12)
[2018-05-22 17:07] LABS: Glucose,Whole Blood 235 mg/dL (75-99)
[2018-05-22 20:13] LABS: Glucose,Whole Blood 269 mg/dL (75-99)
[2018-05-22] MEDS ORDERED: INSULIN DETEMIR 100 UNIT/ML 10 ML VIAL SQ SCH ×2 (21:00)
[2018-05-22] MEDS: traZODone HCL 50 MG TAB PO SCH (21:14)
[2018-05-23 02:09] LABS: Glucose,Whole Blood 80 mg/dL (75-99)
[2018-05-23] MEDS: INSULIN ASPART 100 UNIT/ML 1 ML 10 ML VIAL SQ SCH ×8 (02:29→20:25)
[2018-05-23 06:33] LABS: Glucose,Whole Blood 71 mg/dL (75-99)
[2018-05-23 07:08] LABS: Glucose,Whole Blood 90 mg/dL (75-99)
[2018-05-23] MEDS: FLUoxetine HCL 20 MG CAP PO SCH (08:15)
[2018-05-23 08:22] LABS: Glucose,Whole Blood 100 mg/dL (75-99)
[2018-05-23] MEDS ORDERED: buPROPion SR 150 MG TABLET.ER PO SCH (09:00)
[2018-05-23 12:04] LABS: Glucose,Whole Blood 195 mg/dL (75-99)
[2018-05-23] MEDS: metFORMIN 850 MG TAB PO SCH ×2 (13:12→18:04)
[2018-05-23] MEDS ORDERED: buPROPion XL 150 MG TAB.ER.24H PO SCH (13:15)
--- NOTE | 2018-05-23 16:43 | CONS ---
CONSULTATION CHIEF COMPLAINT: Major depression and poorly controlled type 1 insulin-dependent diabetes mellitus. HISTORY OF PRESENT ILLNESS: This gentleman is doing fairly well but his sugars are erratic. He is well hydrated. He is not nauseated or vomiting. PHYSICAL EXAM: Hydration and color are good. Chest is clear. Cardiac exam is normal. Abdomen is soft, nontender. Extremities are normal. IMPRESSION: 1. Major depression. 2. Diabetic ketoacidosis. 3. Poorly-controlled diabetes. PLAN: Continue to monitor blood sugars and adjust insulin accordingly. MMODL / IJN: [id number] /
[2018-05-23 16:59] LABS: Glucose,Whole Blood 114 mg/dL (75-99)
[2018-05-23 19:49] LABS: Glucose,Whole Blood 221 mg/dL (75-99)
[2018-05-23] MEDS: INSULIN DETEMIR 100 UNIT/ML 10 ML VIAL SQ SCH (20:21)
--- NOTE | 2018-05-23 21:58 | PN ---
DATE OF SERVICE: 05/23/2018 PROGRESS NOTE CHIEF COMPLAINT: The patient had anxiety, depression, hopelessness and noncompliance with treatment for diabetes. INTERVAL HISTORY: The patient has been doing fair. He had a quiet evening last night. He slept well. Today he has been up. He comes out in the day area. He does attend groups at times. He is described as "passive aggressive" in groups. He will interact some with others. He continues to report a lot of depression symptoms. He does not seem to engage much in the idea of treatment. He is able to acknowledge the inconsistency he has had with his medications, not only in treatment for depression but as well as treatment for his diabetes. He has had long-term issues and multiple hospitalizations for circumstances very similar to his current admission. He does not engage much in discharge planning as far as what he believes would be beneficial for him. He tolerates his psychotropic medications. MENTAL STATUS: Patient gave fair eye contact. Psychomotor activity was restless. He answered questions with brief responses. His thoughts were clear, did not say a lot. He was not spontaneous or interactive. His affect was flat. His mood was depressed. He was moderately distressed. There was no indication of thought disorder. ASSESSMENT: I will continue the current diagnosis and treatment plan. The patient will continue Prozac 20 mg a day. I will increase his Wellbutrin to 150 mg SR twice a day. He will also continue Desyrel 150 mg at bedtime. I reviewed medication issues with the patient including indications, side effects, potential risks. The patient did not make much effort to seem to engage in the discussion. We will continue to focus on stabilization and discharge planning. GRACE / ALDEN: [id number] / MTDSavita
[2018-05-23] MEDS: buPROPion SR 150 MG TABLET.ER PO SCH (22:01)
[2018-05-23] MEDS: traZODone HCL 50 MG TAB PO SCH (22:02)
[2018-05-24 02:00] LABS: Glucose,Whole Blood 92 mg/dL (75-99)
[2018-05-24] MEDS: INSULIN ASPART 100 UNIT/ML 1 ML 10 ML VIAL SQ SCH ×8 (02:05→21:58)
[2018-05-24 06:28] LABS: Glucose,Whole Blood 67 mg/dL (75-99)
[2018-05-24 06:49] LABS: Glucose,Whole Blood 83 mg/dL (75-99)
[2018-05-24] MEDS: FLUoxetine HCL 20 MG CAP PO SCH (08:06)
[2018-05-24] MEDS: metFORMIN 850 MG TAB PO SCH ×2 (08:06→17:51)
[2018-05-24] MEDS: buPROPion SR 150 MG TABLET.ER PO SCH ×2 (08:06→21:50)
[2018-05-24] MEDS ORDERED: buPROPion SR 150 MG TABLET.ER PO SCH (09:00)
[2018-05-24 12:21] LABS: Glucose,Whole Blood 231 mg/dL (75-99)
--- NOTE | 2018-05-24 14:39 | PN ---
PROGRESS NOTE DATE OF SERVICE: 05/24/2018. CHIEF COMPLAINT: The patient had anxiety, depression, hopelessness, and noncompliance with treatment for diabetes. INTERVAL HISTORY: Patient has been doing fair. He had a quiet evening last night. He slept fairly well today. He has been up. He comes out in the day area. He will wonder about. He does not interact too much with others. He spends a fair amount of time in his room. He has not been attending groups. He has been appropriate with staff and peers. He has been cooperative with care, takes his medications. He reports no problems with his psychotropic medications. He said that he believes once he gets home he can do a better job of managing his diabetes once he gets on medications that his outpatient physician has prescribed for him. He continues to have issues with the fact that he does not have identification. MENTAL STATUS: Patient gave fairly good eye contact. Psychomotor activity was slowed. Speech was monotone and soft. He answered questions with brief responses. He did not say a lot. His affect was blunted. His mood reserved, seems somewhat distressed. He had a very quiet, reserved manner. There were no indications of thought disorder. ASSESSMENT: I will continue the current diagnosis and treatment plan. I will continue psychotropic medications the same. We will continue to focus on stabilizing mood issues and working to develop some support for outpatient follow up. I discussed the possibility of setting up a family meeting with the patient's father to help in this regard. He was not inclined to have his father involved in his care at least at this time. GRACE / ALDEN: [id number] /
[2018-05-24 17:21] LABS: Glucose,Whole Blood 136 mg/dL (75-99)
[2018-05-24 20:23] LABS: Glucose,Whole Blood 70 mg/dL (75-99)
[2018-05-24 20:31] LABS: Glucose,Whole Blood 94 mg/dL (75-99)
[2018-05-24] MEDS: INSULIN DETEMIR 100 UNIT/ML 10 ML VIAL SQ SCH (21:50)
[2018-05-24] MEDS: traZODone HCL 50 MG TAB PO SCH (21:50)
[2018-05-25 01:32] LABS: Glucose,Whole Blood 131 mg/dL (75-99)
[2018-05-25 05:36] LABS: Glucose,Whole Blood 56 mg/dL (75-99)
[2018-05-25 06:14] LABS: Glucose,Whole Blood 88 mg/dL (75-99)
[2018-05-25] MEDS: INSULIN ASPART 100 UNIT/ML 1 ML 10 ML VIAL SQ SCH ×3 (08:27→17:40)
[2018-05-25] MEDS: FLUoxetine HCL 20 MG CAP PO SCH (08:35)
[2018-05-25] MEDS: buPROPion SR 150 MG TABLET.ER PO SCH ×2 (08:35→21:53)
[2018-05-25 10:36] LABS: Glucose,Whole Blood 201 mg/dL (75-99)
[2018-05-25 12:50] LABS: Glucose,Whole Blood 147 mg/dL (75-99)
[2018-05-25 17:41] LABS: Glucose,Whole Blood 214 mg/dL (75-99)
[2018-05-25 20:05] LABS: Glucose,Whole Blood 195 mg/dL (75-99)
--- NOTE | 2018-05-25 20:25 | PN ---
PROGRESS NOTE DATE OF SERVICE: 05/25/2018. CHIEF COMPLAINT: The patient had anxiety, depression, hopelessness, and noncompliance with treatment for diabetes. INTERVAL HISTORY: Patient has been doing fair. He had a quiet evening last night. He says that he sleeps poorly. He said that last night he woke up about 2. He says this is what his usual sleeping pattern has been at home. He will try to stay up late in hopes that he would sleep longer into the night when he says when he is at home, he usually goes to bed about 11 o'clock, though typically will wake up between 2 and 3 o'clock. It is noted that staff observed him at 3:30 this morning lying in bed with his eyes open. He did not have any specific complaints or concerns. He comes out in the day area. He will attend some groups. He tends to be quiet and described as "blunted" in his affect and mood. He is appropriate. He will initiate some full efforts to engage in group. When I talked to him, he had no specific complaints. He acknowledges that he does struggle with some depression though he says for the most part, he does not think the effects are in his mood as much as in how he functions and recognizes that prior to coming into the hospital, his function was poor. At home, he had been on trazodone, which has been continued here. He tolerates his psychotropic medications. MENTAL STATUS: Patient gave fair eye contact. Psychomotor activity was slowed. Speech was monotone. He answered questions with brief responses. His thoughts were clear. He did not say a lot. He was not spontaneous or interactive. His affect was blunted. His mood appeared to be quite depressed in spite of his not really responding to the question about mood in the reliable way. There was no indication of thought disorder. ASSESSMENT: I will continue the current diagnosis and treatment plan. I will increase Prozac up to 40 mg a day. In addition, I will increase trazodone to 200 mg a day. We will continue to focus on stabilization and discharge planning. I again talked to the patient about the option of getting his father engaged to some extent in assessment and discharge planning. He was still a little reluctant to consider that idea. I encouraged the patient to think about that and to consider that there might be benefits in terms of our developing a good discharge plan for the patient. Will continue to focus on stabilization and discharge planning. MMBIANCA / IJN: [id number] /
[2018-05-25] MEDS ORDERED: INSULIN DETEMIR 100 UNIT/ML 10 ML VIAL SQ SCH (21:00)
[2018-05-25] MEDS: traZODone HCL 100 MG TAB PO SCH (21:53)
[2018-05-26 02:06] LABS: Glucose,Whole Blood 144 mg/dL (75-99)
[2018-05-26 04:11] LABS: Glucose,Whole Blood 74 mg/dL (75-99)
[2018-05-26 06:36] LABS: Glucose,Whole Blood 86 mg/dL (75-99)
[2018-05-26] MEDS: INSULIN ASPART 100 UNIT/ML 1 ML 10 ML VIAL SQ SCH ×3 (08:34→18:03)
[2018-05-26] MEDS: buPROPion SR 150 MG TABLET.ER PO SCH ×2 (08:35→21:03)
[2018-05-26] MEDS: LOPERAMIDE 2 MG CAP PO PRN ×3 (08:35→20:37)
[2018-05-26] MEDS: FLUoxetine HCL 20 MG CAP PO SCH (08:35)
[2018-05-26 12:40] LABS: Glucose,Whole Blood 273 mg/dL (75-99)
--- NOTE | 2018-05-26 15:02 | PN ---
PROGRESS NOTE DATE OF SERVICE: 05/26/2018. CHIEF COMPLAINT: The patient had anxiety, depression, hopelessness, and noncompliance with treatment for diabetes. INTERVAL HISTORY: Patient has been doing fair. He had a quiet evening last night. It was documented, he slept 6 hours last night. Today he has been up. He comes out in the day area. He attends groups. Group therapist document that the patient seems to be engaged and makes a fairly good effort at getting involved in the groups in a productive way. He tends to keep to himself. He does not interact too much with others, though he seems to be comfortable in the milieu. He notes that his mood is improving. He tolerates his psychotropic medication. MENTAL STATUS: Patient gave fair eye contact. Psychomotor activity was slowed. Speech was monotone. He answered questions with soft almost airy voice at times. His thoughts were clear, coherent, and goal directed. He does not say a lot. He was not spontaneous or interactive. His affect was blunted. His mood reserved. He did appear to be significantly distressed. ASSESSMENT: I will continue the current diagnosis and treatment plan. I will continue psychotropic medications the same. His Prozac has been titrated up to 40 mg. He will continue Wellbutrin SR 150 mg twice a day as his 2 primary antidepressant medications. He is also on Desyrel 200 mg at bedtime. I reviewed discharge planning issues. We will continue to focus on stabilization and discharge planning. GRACE / ALDEN: [id number] /
[2018-05-26 17:07] LABS: Glucose,Whole Blood 215 mg/dL (75-99)
[2018-05-26 20:04] LABS: Glucose,Whole Blood 265 mg/dL (75-99)
[2018-05-26] MEDS ORDERED: INSULIN DETEMIR 100 UNIT/ML 10 ML VIAL SQ SCH ×2 (21:00)
[2018-05-26] MEDS: traZODone HCL 100 MG TAB PO SCH (21:03)
[2018-05-27 02:06] LABS: Glucose,Whole Blood 95 mg/dL (75-99)
[2018-05-27 04:06] LABS: Glucose,Whole Blood 50 mg/dL (75-99)
[2018-05-27 04:19] LABS: Glucose,Whole Blood 92 mg/dL (75-99)
[2018-05-27 06:50] LABS: Glucose,Whole Blood 144 mg/dL (75-99)
[2018-05-27] MEDS: buPROPion SR 150 MG TABLET.ER PO SCH (07:58)
[2018-05-27] MEDS: FLUoxetine HCL 20 MG CAP PO SCH (07:58)
[2018-05-27] MEDS: LOPERAMIDE 2 MG CAP PO PRN ×3 (07:59→20:16)
[2018-05-27] MEDS: INSULIN ASPART 100 UNIT/ML 1 ML 10 ML VIAL SQ SCH ×6 (08:00→20:04)
--- NOTE | 2018-05-27 12:06 | P.PN ---
Subjective Progress Note Date: 05/27/18 Principal diagnosis: Major depressive disorder severe Today I still feel depressed 8 out of 10 and anxiety as 6 out of 10. I take the trazodone all asleep and then wake up about 4:00 in the morning. In the evening I have suicidal thoughts. He still has some diarrhea but feels his stools are beginning to hardener. Objective - Vital Signs Vital signs: Vital Signs Temp 98 F 05/27/18 06:32 Pulse 112 H 05/27/18 06:32 Resp 18 05/27/18 06:32 BP 101/68 05/27/18 06:32 Pulse Ox - Labs Labs: Abnormal Lab Results - Last 24 Hours (Table) 05/26/18 05/26/18 05/26/18 Range/Units 12:37 17:03 20:02 POC Glucose (mg/dL) 273 H 215 H 265 H (75-99) mg/dL 05/27/18 05/27/18 Range/Units 03:56 06:29 POC Glucose (mg/dL) 50 L 144 H (75-99) mg/dL Assessment and Plan Assessment: This is a 22-year-old white male patient past medical history of diabetes mellitus type 1, past episodes of diabetic ketoacidosis, anxiety, depression, childhood asthma, former smoker, marijuana use, who presented to the emergency department per EMS on 05/21/2018 at 1:00 in the morning for mental status changes. Patient was noted to be more lethargic, and poorly responsive. Patient has been poorly compliant with his medications, has not been checking his sugars consistently, and taking his insulin inconsistently. He states he has not been able to get his ID from the pathology secretary, has not been able to see a doctor. He also expresses suicidal ideations, he is depressed about his health conditions, not being able to get a job related to his health. He states his been staying in different places with different relatives, and has recently moved in with his parents. Denies any current smoking, only occasional EtOH use. Chest x-ray showed normal chest. Labs showed a BBC of 41.9, hemoglobin 15.9, sodium is 138, potassium is 4.6, chloride is 102, carbon dioxide was less than 5, anion gap could not be calculated, BUN was 31, creatinine is 1.67, serum glucose was 745, troponin was negative 1, serum acetone was positive. Venous blood gas was done, and showed pH of 6.78, pCO2 14 , and HCO3 of 2. Patient was severely hypothermic, with a temp of 89.4 on admission, currently it's up to 93.8. Tachycardic, with a rate of 118 BPM, room air pulse ox is 100%, pressure is 111/77. PAST PSYCHIATRIC HISTORY: Previous hospitalization at [facility] following a suicide attempt by overdosing on insulin. Also, [facility] with last admission in February 2017; treated with Prozac and Wellbutrin XL. However, pt did not f/u with outpatient psychiatric services and was discharged from [address] [place] [address] on 05/09/2017 with below medications. It is obvious that she has not followed up in [facility]. Discharge Medication List FLUoxetine HCL [PROzac] 40 mg PO DAILY #30 cap 05/09/17 [Rx] Insulin Aspart [NovoLOG (formulary)] 6 unit SQ AC-TID #1 vial 05/09/17 [Rx] Insulin Detemir [Levemir] 18 unit SQ DAILY #1 syr 05/09/17 [Rx] buPROPion XL [Wellbutrin XL] 300 mg PO DAILY #30 tab.er.24h 05/09/17 [Rx] hydrOXYzine PAMOATE [Vistaril] 25 mg PO TID PRN #90 cap 05/09/17 [Rx] traZODone HCL [Desyrel] 200 mg PO HS #30 tab 05/09/17 [Rx] Home Medications Medication Instructions Recorded Confirmed Insulin Glargine [Lantus] 25 unit SQ HS 09/25/17 03/08/18 traZODone HCL 150 mg PO HS 10/17/17 03/08/18 Insulin Aspart [NovoLOG See Protocol SQ AC-TID 03/08/18 03/08/18 (formulary)] Previous Rx's Medication Instructions Recorded Erythromycin Ophth Oint [Romycin 1 applic LEFT EYE QID 7 Days #1 04/07/18 Ophth Oint] tube Allergies Allergy/AdvReac Type Severity Reaction Status Date / Time No Known Allergies Allergy Verified 04/07/18 11:19 Past Medical History Past Medical History: Asthma, Diabetes Mellitus, Skin Disorder Additional Past Medical History / Comment(s): , insulin dependent diabetes oral motor apraxia;. psoriasis, previous suicidal attempts anxiety/depression, previous hospital physicians for DKA,gastroparesis. History of Any Multi-Drug Resistant Organisms: None Reported Past Surgical History: Adenoidectomy Additional Past Surgical History / Comment(s): 2002 Past Anesthesia/Blood Transfusion Reactions: No Reported Reaction Past Psychological History: Anxiety, Depression Smoking Status: Former smoker Past Alcohol Use History: None Reported Past Drug Use History: None Reported - Past Family History Mother Family Medical History: CVA/TIA Father Family Medical History: Hyperlipidemia, Hypertension Additional Family Medical History / Comment(s): . Mental Status Examination - this is a 22-year-old male who lives with his father who stated he's not been able to get follow-up care due to the [facility] not giving him an ID due to the fact he does not have a student ID nor can he get transcripts from the school that he attended. He states he would take his medication if he had ID could be serviced by [facility]. His mother is not in his life who lives with a roommate. His father is at home and he does not know how he got to the hospital today. General Appearance: [disheveled, appears stated age] Speech/Language: [slow,hesitant, soft, ] Attitude/Behavior: [withdrawn, indifferent] Mood: [depressed 8 out of 10, anxious 10 out of 10, hopelessness] Affect: [ flat, blunted constricted] Orientation: [Not oriented to time, but is person, place situation] Thought Content: [wnl Risk Factors: [He has had thoughts in the past but this was not a suicide attempt today denies suicidal (ideations, plan), and/or Homicidal (ideations, plan) Perception: [wnl, denies hallucinations (auditory, visual, tactile), other] Thought Processes: [goal-oriented he wants help and cannot get up from the [facility] to get an ID for him so that he can have follow-up care at [facility]. He has not been on any medications due to the fact he cannot have an ID Concentration/Attention Span: [impaired] [Per observation and interview with the patient] Recent Memory: [wnl Remote Memory: [wnl] [past events, as related history] Intelligence: [below average] [based on history, based on vocabulary, syntax, grammar, and content] Judgement: [poor] [per patient's behavior/history of present illness] Insight: [poor] [understanding severity of illness/history of present illness] Psychiatric impression: Major depressive disorder recurrent severe in nature and diabetes. WILL START PROZAC 20 MG, WELLBUTRIN 150 MG SR, VISTARIL 25 MG PRN 8 HOURS TRAZADONE 150 MG vOLUNTARY ADMISSION 15 MINUTE CHECKS EVALUATION BY MEDICINE, PSYCHIATRY, NURSING STAFF AND OCCUPATIONAL ORTIZ AND MILIEU THERAPY (1) Major depressive disorder, recurrent Current Visit: Yes Status: Chronic Priority: High Code(s): F33.9 - MAJOR DEPRESSIVE DISORDER, RECURRENT, UNSPECIFIED SNOMED Code(s): 12233926 Plan: Plan is to increase his Prozac to 60 mg a day, his Wellbutrin is rated as 150 mg twice a day and will change to 300 mg XL by mouth every morning. I discontinued the Vistaril since he's not had to use for anxiety. Anticipation for discharge is by 05/29/2018 Time with Patient: Greater than 30
[2018-05-27 12:17] LABS: Glucose,Whole Blood 202 mg/dL (75-99)
[2018-05-27 17:28] LABS: Glucose,Whole Blood 262 mg/dL (75-99)
[2018-05-27 19:53] LABS: Glucose,Whole Blood 270 mg/dL (75-99)
[2018-05-27] MEDS: INSULIN DETEMIR 100 UNIT/ML 10 ML VIAL SQ SCH (20:03)
[2018-05-27] MEDS: traZODone HCL 100 MG TAB PO SCH (22:14)
[2018-05-28 02:11] LABS: Glucose,Whole Blood 137 mg/dL (75-99)
[2018-05-28 04:06] LABS: Glucose,Whole Blood 77 mg/dL (75-99)
[2018-05-28] MEDS: INSULIN ASPART 100 UNIT/ML 1 ML 10 ML VIAL SQ SCH ×8 (06:32→21:32)
[2018-05-28 06:39] LABS: Glucose,Whole Blood 143 mg/dL (75-99)
[2018-05-28] MEDS: buPROPion XL 300 MG TAB.ER.24H PO SCH (09:17)
[2018-05-28] MEDS: FLUoxetine HCL 20 MG CAP PO SCH (09:17)
[2018-05-28 12:23] LABS: Glucose,Whole Blood 202 mg/dL (75-99)
--- NOTE | 2018-05-28 12:36 | P.PN ---
Subjective Progress Note Date: 05/28/18 Principal diagnosis: Major depressive disorder severe Today I still feel depressed 8 out of 10 and anxiety as 6 out of 10. I take the trazodone all asleep and then wake up about 4:00 in the morning. In the evening I have suicidal thoughts. He still has some diarrhea but feels his stools are beginning to hardener.He has racing thoughts and thinks about not getting his ID Objective - Vital Signs Vital signs: Vital Signs Temp 97.6 F 05/28/18 06:40 Pulse 106 H 05/28/18 06:40 Resp 16 05/28/18 06:40 BP 105/64 05/28/18 06:40 Pulse Ox - Labs Labs: Abnormal Lab Results - Last 24 Hours (Table) 05/27/18 05/27/18 05/28/18 Range/Units 17:12 19:52 02:02 POC Glucose (mg/dL) 262 H 270 H 137 H (75-99) mg/dL 05/28/18 05/28/18 Range/Units 06:22 12:19 POC Glucose (mg/dL) 143 H 202 H (75-99) mg/dL Assessment and Plan Assessment: This is a 22-year-old white male patient past medical history of diabetes mellitus type 1, past episodes of diabetic ketoacidosis, anxiety, depression, childhood asthma, former smoker, marijuana use, who presented to the emergency department per EMS on 05/21/2018 at 1:00 in the morning for mental status changes. Patient was noted to be more lethargic, and poorly responsive. Patient has been poorly compliant with his medications, has not been checking his sugars consistently, and taking his insulin inconsistently. He states he has not been able to get his ID from the real estate legal secretary, has not been able to see a doctor. He also expresses suicidal ideations, he is depressed about his health conditions, not being able to get a job related to his health. He states his been staying in different places with different relatives, and has recently moved in with his parents. Denies any current smoking, only occasional EtOH use. Chest x-ray showed normal chest. Labs showed a BBC of 41.9, hemoglobin 15.9, sodium is 138, potassium is 4.6, chloride is 102, carbon dioxide was less than 5, anion gap could not be calculated, BUN was 31, creatinine is 1.67, serum glucose was 745, troponin was negative 1, serum acetone was positive. Venous blood gas was done, and showed pH of 6.78, pCO2 14 , and HCO3 of 2. Patient was severely hypothermic, with a temp of 89.4 on admission, currently it's up to 93.8. Tachycardic, with a rate of 118 BPM, room air pulse ox is 100%, pressure is 111/77. PAST PSYCHIATRIC HISTORY: Previous hospitalization at [facility] following a suicide attempt by overdosing on insulin. Also, [facility] with last admission in February 2017; treated with Prozac and Wellbutrin XL. However, pt did not f/u with outpatient psychiatric services and was discharged from [address] [place] [address] on 05/09/2017 with below medications. It is obvious that she has not followed up in [facility]. Discharge Medication List FLUoxetine HCL [PROzac] 40 mg PO DAILY #30 cap 05/09/17 [Rx] Insulin Aspart [NovoLOG (formulary)] 6 unit SQ AC-TID #1 vial 05/09/17 [Rx] Insulin Detemir [Levemir] 18 unit SQ DAILY #1 syr 05/09/17 [Rx] buPROPion XL [Wellbutrin XL] 300 mg PO DAILY #30 tab.er.24h 05/09/17 [Rx] hydrOXYzine PAMOATE [Vistaril] 25 mg PO TID PRN #90 cap 05/09/17 [Rx] traZODone HCL [Desyrel] 200 mg PO HS #30 tab 05/09/17 [Rx] Home Medications Medication Instructions Recorded Confirmed Insulin Glargine [Lantus] 25 unit SQ HS 09/25/17 03/08/18 traZODone HCL 150 mg PO HS 10/17/17 03/08/18 Insulin Aspart [NovoLOG See Protocol SQ AC-TID 03/08/18 03/08/18 (formulary)] Previous Rx's Medication Instructions Recorded Erythromycin Ophth Oint [Romycin 1 applic LEFT EYE QID 7 Days #1 04/07/18 Ophth Oint] tube Allergies Allergy/AdvReac Type Severity Reaction Status Date / Time No Known Allergies Allergy Verified 04/07/18 11:19 Past Medical History Past Medical History: Asthma, Diabetes Mellitus, Skin Disorder Additional Past Medical History / Comment(s): , insulin dependent diabetes oral motor apraxia;. psoriasis, previous suicidal attempts anxiety/depression, previous hospital physicians for DKA,gastroparesis. History of Any Multi-Drug Resistant Organisms: None Reported Past Surgical History: Adenoidectomy Additional Past Surgical History / Comment(s): 2002 Past Anesthesia/Blood Transfusion Reactions: No Reported Reaction Past Psychological History: Anxiety, Depression Smoking Status: Former smoker Past Alcohol Use History: None Reported Past Drug Use History: None Reported - Past Family History Mother Family Medical History: CVA/TIA Father Family Medical History: Hyperlipidemia, Hypertension Additional Family Medical History / Comment(s): . Mental Status Examination - this is a 22-year-old male who lives with his father who stated he's not been able to get follow-up care due to the [facility] not giving him an ID due to the fact he does not have a student ID nor can he get transcripts from the school that he attended. He states he would take his medication if he had ID could be serviced by [facility]. His mother is not in his life who lives with a roommate. His father is at home and he does not know how he got to the hospital today. General Appearance: [disheveled, appears stated age] Speech/Language: [slow,hesitant, soft, ] Attitude/Behavior: [withdrawn, indifferent] Mood: [depressed 8 out of 10, anxious 10 out of 10, hopelessness] Affect: [ flat, blunted constricted] Orientation: [Not oriented to time, but is person, place situation] Thought Content: [wnl Risk Factors: [He has had thoughts in the past but this was not a suicide attempt today denies suicidal (ideations, plan), and/or Homicidal (ideations, plan) Perception: [wnl, denies hallucinations (auditory, visual, tactile), other] Thought Processes: [goal-oriented he wants help and cannot get up from the [facility] to get an ID for him so that he can have follow-up care at [facility]. He has not been on any medications due to the fact he cannot have an ID Concentration/Attention Span: [impaired] [Per observation and interview with the patient] Recent Memory: [wnl Remote Memory: [wnl] [past events, as related history] Intelligence: [below average] [based on history, based on vocabulary, syntax, grammar, and content] Judgement: [poor] [per patient's behavior/history of present illness] Insight: [poor] [understanding severity of illness/history of present illness] Psychiatric impression: Major depressive disorder recurrent severe in nature and diabetes. WILL START PROZAC 20 MG, WELLBUTRIN 150 MG SR, VISTARIL 25 MG PRN 8 HOURS TRAZADONE 150 MG vOLUNTARY ADMISSION 15 MINUTE CHECKS EVALUATION BY MEDICINE, PSYCHIATRY, NURSING STAFF AND OCCUPATIONAL ORTIZ AND MILIEU THERAPY (1) Major depressive disorder, recurrent Current Visit: Yes Status: Chronic Priority: High Code(s): F33.9 - MAJOR DEPRESSIVE DISORDER, RECURRENT, UNSPECIFIED SNOMED Code(s): 97391851 Plan: Plan is to increase his Prozac to 60 mg a day, his Wellbutrin is rated as 150 mg twice a day and will change to 300 mg XL by mouth every morning. I discontinued the Vistaril since he's not had to use for anxiety. Add Lamictal 25 mg po qhs. Time with Patient: Greater than 30
[2018-05-28 17:33] LABS: Glucose,Whole Blood 224 mg/dL (75-99)
[2018-05-28 20:01] LABS: Glucose,Whole Blood 191 mg/dL (75-99)
[2018-05-28] MEDS: LOPERAMIDE 2 MG CAP PO PRN (20:14)
[2018-05-28] MEDS ORDERED: lamoTRIgine 25 MG TAB PO SCH (21:00)
[2018-05-28] MEDS: INSULIN DETEMIR 100 UNIT/ML 10 ML VIAL SQ SCH (21:33)
[2018-05-28] MEDS: traZODone HCL 100 MG TAB PO SCH (21:34)
[2018-05-29 02:03] LABS: Glucose,Whole Blood 136 mg/dL (75-99)
[2018-05-29] MEDS: INSULIN ASPART 100 UNIT/ML 1 ML 10 ML VIAL SQ SCH ×8 (02:23→20:55)
[2018-05-29 04:09] LABS: Glucose,Whole Blood 187 mg/dL (75-99)
[2018-05-29 06:55] LABS: Glucose,Whole Blood 126 mg/dL (75-99)
[2018-05-29] MEDS: FLUoxetine HCL 20 MG CAP PO SCH (08:36)
[2018-05-29] MEDS: buPROPion XL 300 MG TAB.ER.24H PO SCH (08:36)
--- NOTE | 2018-05-29 10:14 | P.PN ---
Subjective Progress Note Date: 05/29/18 Principal diagnosis: Major depressive disorder severe Today I still feel depressed 8 out of 10 and anxiety as 6 out of 10. I take the trazodone all asleep and then wake up about 4:00 in the morning. In the evening I have suicidal thoughts. He still has some diarrhea but feels his stools are beginning to hardener.He has racing thoughts and thinks about not getting his ID 05/29/2008: He felt that Lamictal helped with his racing thoughts but he still remains depressed. He will need to be titrated on his Lamictal and titrated reaches 200 mg by mouth daily at bedtime. Objective - Vital Signs Vital signs: Vital Signs Temp 98.0 F 05/29/18 06:19 Pulse 91 05/29/18 06:19 Resp 14 05/29/18 06:19 BP 97/62 05/29/18 06:19 Pulse Ox - Labs Labs: Abnormal Lab Results - Last 24 Hours (Table) 05/28/18 05/28/18 05/28/18 Range/Units 12:19 17:28 19:56 POC Glucose (mg/dL) 202 H 224 H 191 H (75-99) mg/dL 05/29/18 05/29/18 05/29/18 Range/Units 01:58 03:55 06:47 POC Glucose (mg/dL) 136 H 187 H 126 H (75-99) mg/dL Assessment and Plan Assessment: This is a 22-year-old white male patient past medical history of diabetes mellitus type 1, past episodes of diabetic ketoacidosis, anxiety, depression, childhood asthma, former smoker, marijuana use, who presented to the emergency department per EMS on 05/21/2018 at 1:00 in the morning for mental status changes. Patient was noted to be more lethargic, and poorly responsive. Patient has been poorly compliant with his medications, has not been checking his sugars consistently, and taking his insulin inconsistently. He states he has not been able to get his ID from the nursing secretary, has not been able to see a doctor. He also expresses suicidal ideations, he is depressed about his health conditions, not being able to get a job related to his health. He states his been staying in different places with different relatives, and has recently moved in with his parents. Denies any current smoking, only occasional EtOH use. Chest x-ray showed normal chest. Labs showed a BBC of 41.9, hemoglobin 15.9, sodium is 138, potassium is 4.6, chloride is 102, carbon dioxide was less than 5, anion gap could not be calculated, BUN was 31, creatinine is 1.67, serum glucose was 745, troponin was negative 1, serum acetone was positive. Venous blood gas was done, and showed pH of 6.78, pCO2 14 , and HCO3 of 2. Patient was severely hypothermic, with a temp of 89.4 on admission, currently it's up to 93.8. Tachycardic, with a rate of 118 BPM, room air pulse ox is 100%, pressure is 111/77. PAST PSYCHIATRIC HISTORY: Previous hospitalization at [facility] following a suicide attempt by overdosing on insulin. Also, admitted to [facility] twice with last admission in February 2017; treated with Prozac and Wellbutrin XL. However, pt did not f/u with outpatient psychiatric services and was discharged from [address] [place] [address] on 05/09/2017 with below medications. It is obvious that she has not followed up in community mental health. Discharge Medication List FLUoxetine HCL [PROzac] 40 mg PO DAILY #30 cap 05/09/17 [Rx] Insulin Aspart [NovoLOG (formulary)] 6 unit SQ AC-TID #1 vial 05/09/17 [Rx] Insulin Detemir [Levemir] 18 unit SQ DAILY #1 syr 05/09/17 [Rx] buPROPion XL [Wellbutrin XL] 300 mg PO DAILY #30 tab.er.24h 05/09/17 [Rx] hydrOXYzine PAMOATE [Vistaril] 25 mg PO TID PRN #90 cap 05/09/17 [Rx] traZODone HCL [Desyrel] 200 mg PO HS #30 tab 05/09/17 [Rx] Home Medications Medication Instructions Recorded Confirmed Insulin Glargine [Lantus] 25 unit SQ HS 09/25/17 03/08/18 traZODone HCL 150 mg PO HS 10/17/17 03/08/18 Insulin Aspart [NovoLOG See Protocol SQ AC-TID 03/08/18 03/08/18 (formulary)] Previous Rx's Medication Instructions Recorded Erythromycin Ophth Oint [Romycin 1 applic LEFT EYE QID 7 Days #1 04/07/18 Ophth Oint] tube Allergies Allergy/AdvReac Type Severity Reaction Status Date / Time No Known Allergies Allergy Verified 04/07/18 11:19 Past Medical History Past Medical History: Asthma, Diabetes Mellitus, Skin Disorder Additional Past Medical History / Comment(s): , insulin dependent diabetes oral motor apraxia;. psoriasis, previous suicidal attempts anxiety/depression, previous hospital physicians for DKA,gastroparesis. History of Any Multi-Drug Resistant Organisms: None Reported Past Surgical History: Adenoidectomy Additional Past Surgical History / Comment(s): 2002 Past Anesthesia/Blood Transfusion Reactions: No Reported Reaction Past Psychological History: Anxiety, Depression Smoking Status: Former smoker Past Alcohol Use History: None Reported Past Drug Use History: None Reported - Past Family History Mother Family Medical History: CVA/TIA Father Family Medical History: Hyperlipidemia, Hypertension Additional Family Medical History / Comment(s): . Mental Status Examination - this is a 22-year-old male who lives with his father who stated he's not been able to get follow-up care due to the [facility] not giving him an ID due to the fact he does not have a student ID nor can he get transcripts from the school that he attended. He states he would take his medication if he had ID could be serviced by [facility]. His mother is not in his life who lives with a roommate. His father is at home and he does not know how he got to the hospital today. General Appearance: [disheveled, appears stated age] Speech/Language: [slow,hesitant, soft, ] Attitude/Behavior: [withdrawn, indifferent] Mood: [depressed 8 out of 10, anxious 10 out of 10, hopelessness] Affect: [ flat, blunted constricted] Orientation: [Not oriented to time, but is person, place situation] Thought Content: [wnl Risk Factors: [He has had thoughts in the past but this was not a suicide attempt today denies suicidal (ideations, plan), and/or Homicidal (ideations, plan) Perception: [wnl, denies hallucinations (auditory, visual, tactile), other] Thought Processes: [goal-oriented he wants help and cannot get up from the [facility] to get an ID for him so that he can have follow-up care at [facility]. He has not been on any medications due to the fact he cannot have an ID Concentration/Attention Span: [impaired] [Per observation and interview with the patient] Recent Memory: [wnl Remote Memory: [wnl] [past events, as related history] Intelligence: [below average] [based on history, based on vocabulary, syntax, grammar, and content] Judgement: [poor] [per patient's behavior/history of present illness] Insight: [poor] [understanding severity of illness/history of present illness] Psychiatric impression: Major depressive disorder recurrent severe in nature and diabetes. WILL START PROZAC 20 MG, WELLBUTRIN 150 MG SR, VISTARIL 25 MG PRN 8 HOURS TRAZADONE 150 MG vOLUNTARY ADMISSION 15 MINUTE CHECKS EVALUATION BY MEDICINE, PSYCHIATRY, NURSING STAFF AND OCCUPATIONAL ORTIZ AND MILIEU THERAPY (1) Major depressive disorder, recurrent Current Visit: Yes Status: Chronic Priority: High Code(s): F33.9 - MAJOR DEPRESSIVE DISORDER, RECURRENT, UNSPECIFIED SNOMED Code(s): 93590940 Plan: Plan is to increase his Prozac to 60 mg a day, his Wellbutrin is rated as 150 mg twice a day and will change to 300 mg XL by mouth every morning. I discontinued the Vistaril since he's not had to use for anxiety. Increase Lamictal 50 mg po qhs. Time with Patient: Less than 30
[2018-05-29 11:04] LABS: Basophils # (A) 0.1 k/uL (0-0.2); Basophils % (A) 1 %; Eosinophils # (A) 0.2 k/uL (0-0.7); Eosinophils % (A) 3 %; HCT 43.9 % (39.0-53.0); Lymphocytes # (A) 2.9 k/uL (1.0-4.8); Lymphocytes % (A) 41 %; MCH 31.3 pg (25.0-35.0); MCHC 34.3 g/dL (31.0-37.0); MCV 91.4 fL (80.0-100.0); Mean Platelet Volume 6.1; Monocytes # (A) 0.7 k/uL (0-1.0); Monocytes % (A) 10 %; Neutrophils # (A) 2.9 k/uL (1.3-7.7); Neutrophils % (A) 43 %; Platelet Count 416 k/uL (150-450); RDW 12.7 % (11.5-15.5); WBC 6.9 k/uL (4.0-11.0)
[2018-05-29 11:21] LABS: ALT 243 U/L (21-72); AST 105 U/L (17-59); Albumin 3.9 g/dL (3.5-5.0); Alkaline Phosphatase 57 U/L (38-126); Anion Gap 5 mmol/L; Blood Urea Nitrogen 20 mg/dL (9-20); Calcium 9.6 mg/dL (8.4-10.2); Carbon Dioxide 39 mmol/L (22-30); Chloride 94 mmol/L (98-107); Glucose 196 mg/dL (74-99); Potassium 5.4 mmol/L (3.5-5.1); Sodium 138 mmol/L (137-145); Total Bilirubin 0.4 mg/dL (0.2-1.3); Total Protein 6.4 g/dL (6.3-8.2)
[2018-05-29 12:27] LABS: Glucose,Whole Blood 241 mg/dL (75-99)
[2018-05-29] MEDS: LOPERAMIDE 2 MG CAP PO PRN ×2 (14:48→22:23)
[2018-05-29 15:27] LABS: Fluoxetine (Prozac) 63 ng/mL (50-480)
[2018-05-29 17:51] LABS: Glucose,Whole Blood 311 mg/dL (75-99)
[2018-05-29 20:03] LABS: Glucose,Whole Blood 270 mg/dL (75-99)
[2018-05-29] MEDS: INSULIN DETEMIR 100 UNIT/ML 10 ML VIAL SQ SCH (20:49)
[2018-05-29] MEDS: lamoTRIgine 25 MG TAB PO SCH (22:23)
[2018-05-29] MEDS: traZODone HCL 100 MG TAB PO SCH (22:23)
[2018-05-30 03:02] LABS: Glucose,Whole Blood 89 mg/dL (75-99)
[2018-05-30] MEDS: INSULIN ASPART 100 UNIT/ML 1 ML 10 ML VIAL SQ SCH ×8 (03:08→21:06)
[2018-05-30 07:18] LABS: Glucose,Whole Blood 124 mg/dL (75-99)
[2018-05-30] MEDS: buPROPion XL 300 MG TAB.ER.24H PO SCH (08:21)
[2018-05-30] MEDS: FLUoxetine HCL 20 MG CAP PO SCH (08:21)
[2018-05-30] MEDS: LOPERAMIDE 2 MG CAP PO PRN ×2 (10:56→17:52)
[2018-05-30 12:36] LABS: Glucose,Whole Blood 275 mg/dL (75-99)
--- NOTE | 2018-05-30 13:52 | P.PN ---
Progress Note - Text Interval history: The patient is found in the dining room he follows me to an interview room. The patient reports he is attending groups he slept well. He is reporting no concerns and has no questions today. Reviewed his psychotropic medications. He is hoping to be discharged this next week. The patient is familiar to me from several years ago we discussed changes in his life since I' ve seen him. Blood sugars were reviewed. Mental status exam: The patient is a tall very thin male. He is dressed in his own clothing. He is pleasant cooperative easily directed. He has spontaneous speech. He demonstrates no tangential thinking loose associations or flight of ideas. He does not appear hypomanic or manic. He is reporting no auditory or visual hallucinations or any specific delusions. He is reporting no suicidal or homicidal thoughts. Insight and judgment improving. He is oriented to person place and date. He demonstrates no verbal or physical aggressiveness. Plan: The patient will continue on his current psychotropic medications. We are monitoring his blood sugar. He is encouraged to continue participating in the milieu. We will continue monitoring him for safety.
[2018-05-30 17:36] LABS: Glucose,Whole Blood 222 mg/dL (75-99)
[2018-05-30 20:11] LABS: Glucose,Whole Blood 261 mg/dL (75-99)
[2018-05-30] MEDS: INSULIN DETEMIR 100 UNIT/ML 10 ML VIAL SQ SCH (21:02)
[2018-05-30] MEDS: lamoTRIgine 25 MG TAB PO SCH (22:40)
[2018-05-30] MEDS: traZODone HCL 100 MG TAB PO SCH (22:40)
[2018-05-31 03:11] LABS: Glucose,Whole Blood 151 mg/dL (75-99)
[2018-05-31] MEDS: INSULIN ASPART 100 UNIT/ML 1 ML 10 ML VIAL SQ SCH ×8 (04:46→20:37)
[2018-05-31 06:33] LABS: Glucose,Whole Blood 75 mg/dL (75-99)
[2018-05-31 07:05] VITALS: RESP 18
[2018-05-31 07:29] LABS: Glucose,Whole Blood 134 mg/dL (75-99)
[2018-05-31] MEDS: FLUoxetine HCL 20 MG CAP PO SCH (08:31)
[2018-05-31] MEDS: buPROPion XL 300 MG TAB.ER.24H PO SCH (08:32)
[2018-05-31 12:33] LABS: Glucose,Whole Blood 253 mg/dL (75-99)
--- NOTE | 2018-05-31 12:54 | P.PN ---
Progress Note - Text Interval history: The patient is found in the hallway he follows me to an interview room. He indicates his mood is good. He states that he feels that he stabilized and he is looking forward to being discharged. We reviewed his blood sugars and the importance of adhering to an appropriate diet. He has been attending groups. He has no questions or concerns today. He indicates his father and sister visited last evening and found that supportive. He anticipates his mother will visit [facility]. Mental status exam: The patient is a thin male appearing his stated age. Eye contact is appropriate speech is fluent spontaneous nonpressured. He is pleasant and cooperative throughout the interaction. He indicates his mood is good he feels stable. He denies having any suicidal or homicidal ideation intent or plan. He is reporting no auditory or visual hallucinations or any specific delusions. He demonstrates no verbal or physical aggressiveness he demonstrates no abnormal involuntary movements. Plan: The patient will continue on his current psychotropic medication. He appears to be clinically stabilizing. Vital signs reviewed. He is encouraged to continue participating in groups.
[2018-05-31 17:24] LABS: Glucose,Whole Blood 284 mg/dL (75-99)
[2018-05-31 20:07] LABS: Glucose,Whole Blood 218 mg/dL (75-99)
[2018-05-31] MEDS: INSULIN DETEMIR 100 UNIT/ML 10 ML VIAL SQ SCH (20:37)
[2018-05-31] MEDS: lamoTRIgine 25 MG TAB PO SCH (22:56)
[2018-05-31] MEDS: traZODone HCL 100 MG TAB PO SCH (22:56)
[2018-06-01 03:02] LABS: Glucose,Whole Blood 160 mg/dL (75-99)
[2018-06-01] MEDS: INSULIN ASPART 100 UNIT/ML 1 ML 10 ML VIAL SQ SCH ×5 (04:20→12:45)
[2018-06-01 06:05] LABS: Glucose,Whole Blood 120 mg/dL (75-99)
[2018-06-01 06:12] VITALS: BP 103/70; PULSE 108; TEMP 97.5
[2018-06-01] MEDS: FLUoxetine HCL 20 MG CAP PO SCH (07:55)
[2018-06-01] MEDS: buPROPion XL 300 MG TAB.ER.24H PO SCH (07:55)
--- NOTE | 2018-06-01 11:15 | P.DS ---
Providers Date of admission: 05/22/18 12:00 Expected date of discharge: 06/01/18 Attending physician: William Gaxiola, Consults: 05/22/18 12:48 Consult Physician Routine Consulting Provider: Brown Valenzuela Consult Reason/Comments: H and P Do you want consulting provider notified?: Yes Primary care physician: Brown Valenzuela - Discharge Diagnosis(es) (1) Major depressive disorder, recurrent This is a 22-year-old white male patient past medical history of diabetes mellitus type 1, past episodes of diabetic ketoacidosis, anxiety, depression, childhood asthma, former smoker, marijuana use, who presented to the emergency department per EMS on 05/21/2018 at 1:00 in the morning for mental status changes. Patient was noted to be more lethargic, and poorly responsive. Patient has been poorly compliant with his medications, has not been checking his sugars consistently, and taking his insulin inconsistently. He states he has not been able to get his ID from the executive secretary, has not been able to see a doctor. He also expresses suicidal ideations, he is depressed about his health conditions, not being able to get a job related to his health. He states his been staying in different places with different relatives, and has recently moved in with his parents. Denies any current smoking, only occasional EtOH use. Chest x-ray showed normal chest. Labs showed a BBC of 41.9, hemoglobin 15.9, sodium is 138, potassium is 4.6, chloride is 102, carbon dioxide was less than 5, anion gap could not be calculated, BUN was 31, creatinine is 1.67, serum glucose was 745, troponin was negative 1, serum acetone was positive. Venous blood gas was done, and showed pH of 6.78, pCO2 14 , and HCO3 of 2. Patient was severely hypothermic, with a temp of 89.4 on admission, currently it's up to 93.8. Tachycardic, with a rate of 118 BPM, room air pulse ox is 100%, pressure is 111/77. PAST PSYCHIATRIC HISTORY: Previous hospitalization at [facility] following a suicide attempt by overdosing on insulin. Also, admitted to [facility] twice with last admission in February 2017; treated with Prozac and Wellbutrin XL. However, pt did not f/u with outpatient psychiatric services and was discharged from [address] [place] [address] on 05/09/2017 with below medications. It is obvious that he has not followed up in community mental health. Current Visit: Yes Status: Chronic Priority: Low Hospital Course: Psychiatric impression: Major depressive disorder recurrent severe in nature and diabetes. WILL START PROZAC 20 MG, WELLBUTRIN 150 MG SR, VISTARIL 25 MG PRN 8 HOURS TRAZADONE 150 MG VOLUNTARY ADMISSION with usual and it checks and protocol for the unit. He was seen by medicine and help adjust his insulin almost on a daily basis, he is leaving on Lantus 11 units and NovoLog. He is extremely difficult to treat due to ongoing depression. There was a failure. His Wellbutrin was increased to 300 mg by mouth every morning and Lamictal 50 mg by mouth daily at bedtime. His Prozac was increased from 20 mg to 60 mg with a resolution of depression with this combination of medications. His blood sugars became stable and reproducible almost on a daily basis. He has a better outlook on how to take care of himself both in his diabetes and his depression. Mental status examination time of discharge: The patient presents alert, pleasant, and cooperative. There calmly seated without any agitated behavior. [He] reports that [his] mood is good. Affect is congruent and euthymic. [He] deny having any suicidal or homicidal ideation intent or plan. [He] denies any auditory or visual hallucinations. There is no evidence of any delusional thought content. [His] thought process is linear and goal-directed. [His] speech is fluent and nonpressured. [His] memory and concentration is grossly intact for the purposes of this session. Discharge Medication List at the time of discharge was covered his medications and he stated due to his insurance Levimere is not covered we discussed that he has to do close monitoring of his blood sugars since he is a brittle diabetic FLUoxetine HCL [PROzac] 60 mg PO DAILY Insulin Aspart [NovoLOG (formulary)] 8 unit SQ AC-TID Insulin Glargine [Lantus] 25 unit SQ HS 30 Days buPROPion XL [Wellbutrin XL] 300 mg PO DAILY 30 Days lamoTRIgine [LaMICtal] 50 mg PO 2100 30 Days traZODone HCL [Desyrel] 200 mg PO HS 30 Days Patient Condition at Discharge: Good Plan - Discharge Summary Discharge Rx Participant: Yes New Discharge Prescriptions: New buPROPion XL [Wellbutrin XL] 300 mg PO DAILY 30 Days #30 tab.er.24h FLUoxetine HCL [PROzac] 60 mg PO DAILY 30 Days #90 cap Insulin Aspart [NovoLOG (formulary)] 8 unit SQ AC-TID 30 Days #1 vial lamoTRIgine [LaMICtal] 50 mg PO 2100 30 Days #60 tab traZODone HCL [Desyrel] 200 mg PO HS 30 Days #90 tab Continue Insulin Glargine [Lantus] 25 unit SQ HS 30 Days #1 vial Discontinued traZODone HCL 150 mg PO HS INSULIN LISPRO (HumaLOG) [HumaLOG] 6 units SQ AC-TID Discharge Medication List FLUoxetine HCL [PROzac] 60 mg PO DAILY 30 Days #90 cap 06/01/18 [Rx] Insulin Aspart [NovoLOG (formulary)] 8 unit SQ AC-TID 30 Days #1 vial 06/01/18 [ Rx] Insulin Glargine [Lantus] 25 unit SQ HS 30 Days #1 vial 06/01/18 [Rx] buPROPion XL [Wellbutrin XL] 300 mg PO DAILY 30 Days #30 tab.er.24h 06/01/18 [Rx ] lamoTRIgine [LaMICtal] 50 mg PO 2100 30 Days #60 tab 06/01/18 [Rx] traZODone HCL [Desyrel] 200 mg PO HS 30 Days #90 tab 06/01/18 [Rx] Follow up Appointment(s)/Referral(s): Brown Valenzuela MD [Primary Care Provider] - 1 Week Patient Instructions/Handouts: Depression (DC), Diabetic Ketoacidosis (DC), Suicide Prevention (DC) Activity/Diet/Wound Care/Special Instructions: Activity and diet as tolerated. Avoid the use of street drugs and alcohol. Remove all firearms from the home. Take all medications as prescribed. Follow up with your Primary Care Physician in one to two days. When you are in need of refills on your medications please contact your medical provider and/or your outpatient psychiatrist to have this done. Please go to the scheduled outpatient appointment for aftercare. If symptoms return or become worse call the crisis line and/ or go the nearest emergency room for an evaluation. l Discharge Disposition: HOME SELF-CARE
[2018-06-01 12:10] LABS: Glucose,Whole Blood 181 mg/dL (75-99)
[2018-06-01 12:12] VITALS: BMI 16.6
== END 2018-06-01 13:58 | disposition home or self-care (01) | DRG 885 ==
LOC: 3MHU 12:00
PROVIDERS: ADMIT Psychiatry & Neurology Psychiatry; ATTEND Psychiatry & Neurology Psychiatry
DX: F33.2 Major depressive disorder, recurrent severe without psychotic features (principal); E10.10 Type 1 diabetes mellitus with ketoacidosis without coma; R45.851 Suicidal ideations; E10.43 Type 1 diabetes mellitus with diabetic autonomic (poly)neuropathy; K31.84 Gastroparesis; T38.3X6A Underdosing of insulin and oral hypoglycemic [antidiabetic] drugs, initial encounter; Z91.128 Patient's intentional underdosing of medication regimen for other reason; R68.0 Hypothermia, not associated with low environmental temperature; F60.89 Other specific personality disorders; F41.9 Anxiety disorder, unspecified; J45.909 Unspecified asthma, uncomplicated; Z79.4 Long term (current) use of insulin; Z79.899 Other long term (current) drug therapy; Z87.891 Personal history of nicotine dependence; Z91.5 Personal history of self-harm; Z82.49 Family history of ischemic heart disease and other diseases of the circulatory system; Z83.49 Family history of other endocrine, nutritional and metabolic diseases; Z82.3 Family history of stroke
CPT/HCPCS: 80053; 80299; 84443; 85025; 87324

== ENCOUNTER 2018-06-10 12:15 | Observation (INO) | payer OTHER ==
[2018-06-10] MEDS ORDERED: SODIUM CHLORIDE 0.9% 1,000 ML IV STA (12:37)
[2018-06-10] MEDS ORDERED: SODIUM CHLORIDE 0.9% 2,000 ML IV STA (12:37)
[2018-06-10] MEDS ORDERED: ONDANSETRON 4 MG/2 ML VIAL IVP STA (12:37)
--- NOTE | 2018-06-10 12:41 | ED ---
General Adult HPI - General Source: patient, RN notes reviewed Mode of arrival: ambulatory Limitations: no limitations <Cirilo Raymond - Last Filed: 06/10/18 14:18> <Gene Lynn - Last Filed: 06/10/18 14:41> - General Chief complaint: Nausea/Vomiting/Diarrhea Stated complaint: high sugar/vomiting Time Seen by Provider: 06/10/18 12:35 - History of Present Illness Initial comments: This is a 22-year-old male presents emergency Department chief complaint hyperglycemia, nausea vomiting abdominal pain. Patient is an insulin-dependent diabetic has had multiple admissions for DKA in the past. Patient states he woke up with abdominal discomfort and states he's been vomiting ever since. Patient states his blood sugars were good yesterday. He has not taken any insulin today. Patient states he feels dehydrated. Patient reports no fever, chills, night sweats, URI symptoms. Denies any diarrhea or constipation at this time. He has NO KNOWN DRUG ALLERGIES. (Cirilo Raymond) - Related Data Previous Rx's Medication Instructions Recorded FLUoxetine HCL [PROzac] 60 mg PO DAILY 30 Days #90 cap 06/01/18 Insulin Aspart [NovoLOG 8 unit SQ AC-TID 30 Days #1 vial 06/01/18 (formulary)] Insulin Glargine [Lantus] 25 unit SQ HS 30 Days #1 vial 06/01/18 buPROPion XL [Wellbutrin XL] 300 mg PO DAILY 30 Days #30 06/01/18 tab.er.24h lamoTRIgine [LaMICtal] 50 mg PO 2100 30 Days #60 tab 06/01/18 traZODone HCL [Desyrel] 200 mg PO HS 30 Days #90 tab 06/01/18 Allergies Allergy/AdvReac Type Severity Reaction Status Date / Time No Known Allergies Allergy Verified 06/10/18 12:39 Review of Systems ROS Other: All systems not noted in ROS Statement are negative. <Cirilo Raymond - Last Filed: 06/10/18 14:18> ROS Other: All systems not noted in ROS Statement are negative. <Gene Lynn - Last Filed: 06/10/18 14:41> ROS Statement: Those systems with pertinent positive or pertinent negative responses have been documented in the HPI. Past Medical History Past Medical History: Asthma, Diabetes Mellitus, Skin Disorder Additional Past Medical History / Comment(s): , insulin dependent diabetes oral motor apraxia; previous suicidal attempts anxiety/depression, previous hospital physicians for DKA,gastroparesis. History of Any Multi-Drug Resistant Organisms: None Reported Past Surgical History: Adenoidectomy Additional Past Surgical History / Comment(s): 2002 Past Anesthesia/Blood Transfusion Reactions: No Reported Reaction Past Psychological History: Anxiety, Depression Smoking Status: Never smoker Past Alcohol Use History: None Reported Past Drug Use History: None Reported - Past Family History Mother Family Medical History: CVA/TIA Father Family Medical History: Hyperlipidemia, Hypertension Additional Family Medical History / Comment(s): . <Cirilo Raymond - Last Filed: 06/10/18 14:18> General Exam Limitations: no limitations General appearance: alert, in no apparent distress Head exam: Present: atraumatic, normocephalic, normal inspection Eye exam: Present: normal appearance, PERRL, EOMI. Absent: scleral icterus, conjunctival injection, periorbital swelling ENT exam: Present: normal oropharynx, mucous membranes dry. Absent: normal exam , mucous membranes moist Neck exam: Present: normal inspection, full ROM. Absent: tenderness, meningismus, lymphadenopathy Respiratory exam: Present: normal lung sounds bilaterally. Absent: respiratory distress, wheezes, rales, rhonchi, stridor Cardiovascular Exam: Present: normal rhythm, tachycardia (Heart rate 131), normal heart sounds. Absent: systolic murmur, diastolic murmur, rubs, gallop, clicks GI/Abdominal exam: Present: soft, tenderness (Mild/moderate diffuse), normal bowel sounds. Absent: distended, guarding, rebound, rigid Back exam: Absent: CVA tenderness (R), CVA tenderness (L) Neurological exam: Present: alert, oriented X3, CN II-XII intact Skin exam: Present: warm, dry, intact, normal color. Absent: rash <Cirilo Raymond - Last Filed: 06/10/18 14:18> Course <Cirilo Raymond - Last Filed: 06/10/18 14:18> <Gene Lynn - Last Filed: 06/10/18 14:41> Vital Signs 06/10/18 06/10/18 06/10/18 12:31 12:45 13:00 Temperature 97.6 F Pulse Rate 131 H 123 H 125 H Respiratory 18 20 18 Rate Blood Pressure 86/53 104/86 115/83 O2 Sat by Pulse 100 100 100 Oximetry 06/10/18 14:00 Temperature Pulse Rate 126 H Respiratory 18 Rate Blood Pressure 114/85 O2 Sat by Pulse 97 Oximetry - Reevaluation(s) Reevaluation #1: 06/10/18 12:39 Initial exam patient appears to be ill, heart rate is 130, blood pressure 86/53 , 2 L fluid bolus was initiated, labs including CBC, CMP, lactate, venous blood gas was ordered. Patient most likely is in diabetic ketoacidosis. (Cirilo Raymond) Reevaluation #2: 06/10/18 14:41 I did review this case and did discuss the findings with the physician front desk assistant I did review the labs and imaging. I also discussed the case with Dr. Valenzuela. Patient will be admitted for inpatient treatment. I do agree with the assessment and plan (Gene Lynn) Medical Decision Making - Lab Data Result diagrams: 06/10/18 12:50 06/10/18 13:28 <Cirilo Raymond - Last Filed: 06/10/18 14:18> - Lab Data Result diagrams: 06/10/18 12:50 06/10/18 13:28 <Gene Lynn - Last Filed: 06/10/18 14:41> - Medical Decision Making 22-year-old male present emergency from for nausea vomiting hyperglycemia. Patient's found to be dehydrated, hyperglycemic lactic acidosis. There is no signs of sepsis at this time lactic acidosis related to dehydration, hyperglycemia. Patient was given an initial 2 L bolus of fluids. Patient will be admitted for IV hydration, insulin sliding scale. Patient is not in DKA. Patient's abdominal pain has resolved no concerns for infection at this time. ( Cirilo Raymond) - Lab Data Lab Results 06/10/18 06/10/18 06/10/18 Range/Units 12:50 12:50 12:50 WBC 16.5 H (4.0-11.0) k/uL RBC 5.82 (4.30-5.90) m/uL Hgb 18.0 H D (13.0-17.5) gm/dL Hct 54.8 H (39.0-53.0) % MCV 94.1 (80.0-100.0) fL MCH 30.8 (25.0-35.0) pg MCHC 32.8 (31.0-37.0) g/dL RDW 13.1 (11.5-15.5) % Plt Count 413 (150-450) k/uL Neutrophils % 90 % Lymphocytes % 4 % Monocytes % 4 % Eosinophils % 1 % Basophils % 1 % Neutrophils # 14.8 H (1.3-7.7) k/uL Lymphocytes # 0.7 L (1.0-4.8) k/uL Monocytes # 0.7 (0-1.0) k/uL Eosinophils # 0.2 (0-0.7) k/uL Basophils # 0.1 (0-0.2) k/uL VBG pH (7.31-7.41) VBG pCO2 (37-51) mmHg VBG HCO3 (24-28) mmol/L Sodium (137-145) mmol/L Potassium (3.5-5.1) mmol/L Chloride (98-107) mmol/L Carbon Dioxide (22-30) mmol/L Anion Gap mmol/L BUN (9-20) mg/dL Creatinine (0.66-1.25) mg/dL Est GFR (CKD-EPI)AfAm (>60 ml/min/1.73 sqM) Est GFR (CKD-EPI)NonAf (>60 ml/min/1.73 sqM) Glucose (74-99) mg/dL POC Glucose (mg/dL) (75-99) mg/dL POC Glu Cheesemaker ID Plasma Lactic Acid Len 5.4 H* (0.7-2.0) mmol/L Calcium (8.4-10.2) mg/dL Total Bilirubin (0.2-1.3) mg/dL AST (17-59) U/L ALT (21-72) U/L Alkaline Phosphatase (38-126) U/L Total Protein (6.3-8.2) g/dL Albumin (3.5-5.0) g/dL Amylase (30-110) U/L Lipase (23-300) U/L Urine Color Urine Appearance (Clear) Urine pH (5.0-8.0) Ur Specific [place] (1.001-1.035) Urine Protein (Negative) Urine Glucose (UA) (Negative) Urine Ketones (Negative) Urine Blood (Negative) Urine Nitrite (Negative) Urine Bilirubin (Negative) Urine Urobilinogen (<2.0) mg/dL Ur Leukocyte Esterase (Negative) Acetone, Qual Negative (Negative) 06/10/18 06/10/18 06/10/18 Range/Units 12:50 12:58 13:28 WBC (4.0-11.0) k/uL RBC (4.30-5.90) m/uL Hgb (13.0-17.5) gm/dL Hct (39.0-53.0) % MCV (80.0-100.0) fL MCH (25.0-35.0) pg MCHC (31.0-37.0) g/dL RDW (11.5-15.5) % Plt Count (150-450) k/uL Neutrophils % % Lymphocytes % % Monocytes % % Eosinophils % % Basophils % % Neutrophils # (1.3-7.7) k/uL Lymphocytes # (1.0-4.8) k/uL Monocytes # (0-1.0) k/uL Eosinophils # (0-0.7) k/uL Basophils # (0-0.2) k/uL VBG pH 7.35 (7.31-7.41) VBG pCO2 44 (37-51) mmHg VBG HCO3 24 (24-28) mmol/L Sodium 138 (137-145) mmol/L Potassium 5.4 H (3.5-5.1) mmol/L Chloride 103 (98-107) mmol/L Carbon Dioxide 22 (22-30) mmol/L Anion Gap 13 mmol/L BUN 28 H (9-20) mg/dL Creatinine 0.50 L (0.66-1.25) mg/dL Est GFR (CKD-EPI)AfAm >90 (>60 ml/min/1.73 sqM) Est GFR (CKD-EPI)NonAf >90 (>60 ml/min/1.73 sqM) Glucose 322 H (74-99) mg/dL POC Glucose (mg/dL) 302 H (75-99) mg/dL POC Glu Cheesemaker ID Robert, Valerie Plasma Lactic Acid Len (0.7-2.0) mmol/L Calcium 9.4 (8.4-10.2) mg/dL Total Bilirubin 1.5 H (0.2-1.3) mg/dL AST 29 (17-59) U/L ALT 71 (21-72) U/L Alkaline Phosphatase 65 (38-126) U/L Total Protein 6.9 (6.3-8.2) g/dL Albumin 4.4 (3.5-5.0) g/dL Amylase 45 (30-110) U/L Lipase 56 (23-300) U/L Urine Color Urine Appearance (Clear) Urine pH (5.0-8.0) Ur Specific [place] (1.001-1.035) Urine Protein (Negative) Urine Glucose (UA) (Negative) Urine Ketones (Negative) Urine Blood (Negative) Urine Nitrite (Negative) Urine Bilirubin (Negative) Urine Urobilinogen (<2.0) mg/dL Ur Leukocyte Esterase (Negative) Acetone, Qual (Negative) 06/10/18 Range/Units 13:48 WBC (4.0-11.0) k/uL RBC (4.30-5.90) m/uL Hgb (13.0-17.5) gm/dL Hct (39.0-53.0) % MCV (80.0-100.0) fL MCH (25.0-35.0) pg MCHC (31.0-37.0) g/dL RDW (11.5-15.5) % Plt Count (150-450) k/uL Neutrophils % % Lymphocytes % % Monocytes % % Eosinophils % % Basophils % % Neutrophils # (1.3-7.7) k/uL Lymphocytes # (1.0-4.8) k/uL Monocytes # (0-1.0) k/uL Eosinophils # (0-0.7) k/uL Basophils # (0-0.2) k/uL VBG pH (7.31-7.41) VBG pCO2 (37-51) mmHg VBG HCO3 (24-28) mmol/L Sodium (137-145) mmol/L Potassium (3.5-5.1) mmol/L Chloride (98-107) mmol/L Carbon Dioxide (22-30) mmol/L Anion Gap mmol/L BUN (9-20) mg/dL Creatinine (0.66-1.25) mg/dL Est GFR (CKD-EPI)AfAm (>60 ml/min/1.73 sqM) Est GFR (CKD-EPI)NonAf (>60 ml/min/1.73 sqM) Glucose (74-99) mg/dL POC Glucose (mg/dL) (75-99) mg/dL POC Glu Cheesemaker ID Plasma Lactic Acid Len (0.7-2.0) mmol/L Calcium (8.4-10.2) mg/dL Total Bilirubin (0.2-1.3) mg/dL AST (17-59) U/L ALT (21-72) U/L Alkaline Phosphatase (38-126) U/L Total Protein (6.3-8.2) g/dL Albumin (3.5-5.0) g/dL Amylase (30-110) U/L Lipase (23-300) U/L Urine Color Yellow Urine Appearance Clear (Clear) Urine pH 5.0 (5.0-8.0) Ur Specific [place] 1.030 (1.001-1.035) Urine Protein Negative (Negative) Urine Glucose (UA) 4+ H (Negative) Urine Ketones 1+ H (Negative) Urine Blood Negative (Negative) Urine Nitrite Negative (Negative) Urine Bilirubin Negative (Negative) Urine Urobilinogen <2.0 (<2.0) mg/dL Ur Leukocyte Esterase Negative (Negative) Acetone, Qual (Negative) Disposition <Cirilo Raymond - Last Filed: 06/10/18 14:18> <Gene Lynn - Last Filed: 06/10/18 14:41> Clinical Impression: Dehydration, Tachycardia, Lactic acidosis, Hyperglycemia, Nausea & vomiting Disposition: ADMITTED IP TO THIS [facility] Condition: Fair Referrals: Brown Valenzuela MD [Primary Care Provider] - 1-2 days
[2018-06-10 12:59] LABS: Glucose,Whole Blood 302 mg/dL (75-99)
[2018-06-10 13:04] LABS: VBG PH 7.35 (7.31-7.41)
[2018-06-10 13:08] LABS: Basophils # (A) 0.1 k/uL (0-0.2); Basophils % (A) 1 %; Eosinophils # (A) 0.2 k/uL (0-0.7); Eosinophils % (A) 1 %; HCT 54.8 % (39.0-53.0); Lymphocytes # (A) 0.7 k/uL (1.0-4.8); Lymphocytes % (A) 4 %; MCH 30.8 pg (25.0-35.0); MCHC 32.8 g/dL (31.0-37.0); MCV 94.1 fL (80.0-100.0); Mean Platelet Volume 5.9; Monocytes # (A) 0.7 k/uL (0-1.0); Monocytes % (A) 4 %; Neutrophils # (A) 14.8 k/uL (1.3-7.7); Neutrophils % (A) 90 %; Platelet Count 413 k/uL (150-450); RBC 5.82 m/uL (4.30-5.90); RDW 13.1 % (11.5-15.5); WBC 16.5 k/uL (4.0-11.0)
[2018-06-10 14:00] LABS: Appearance,Urine Clear (Clear); Bilirubin,Urine Negative (Negative); Blood,Urine Negative (Negative); Color,Urine Yellow; Glucose,Urine (UA) 4+ (Negative); Ketones,Urine 1+ (Negative); Leukocyte Esterase,Urine Negative (Negative); Nitrite,Urine Negative (Negative); Protein,Urine Negative (Negative); Urobilinogen,Urine <2.0 mg/dL (<2.0)
[2018-06-10 14:09] LABS: ALT 71 U/L (21-72); AST 29 U/L (17-59); Albumin 4.4 g/dL (3.5-5.0); Alkaline Phosphatase 65 U/L (38-126); Amylase 45 U/L (30-110); Anion Gap 13 mmol/L; Blood Urea Nitrogen 28 mg/dL (9-20); Calcium 9.4 mg/dL (8.4-10.2); Carbon Dioxide 22 mmol/L (22-30); Chloride 103 mmol/L (98-107); Glucose 322 mg/dL (74-99); Lipase 56 U/L (23-300); Sodium 138 mmol/L (137-145); Total Bilirubin 1.5 mg/dL (0.2-1.3); Total Protein 6.9 g/dL (6.3-8.2)
[2018-06-10 14:12] LABS: Potassium 5.4 mmol/L (3.5-5.1)
[2018-06-10] MEDS ORDERED: ONDANSETRON 4 MG/2 ML VIAL IVP PRN (14:21)
[2018-06-10] MEDS ORDERED: NALOXONE 0.4 MG/ML 1 ML VIAL IV PRN (14:21)
[2018-06-10] MEDS ORDERED: ACETAMINOPHEN TAB 325 MG TAB PO PRN (14:21)
--- NOTE | 2018-06-10 16:19 | HP ---
HISTORY AND PHYSICAL CHIEF COMPLAINT: Abdominal pain, nausea, vomiting and uncontrolled diabetes. HISTORY OF PRESENT ILLNESS: This is another recent admission for this young male who presented to the emergency room after he woke up with abdominal pain, nausea, vomiting. He came to the emergency room, where his blood sugar was elevated. He did not have ketoacidosis. He has had no hematemesis, fever, chills, urinary complaints, cough, shortness of breath, etc. He states he is taking his insulin appropriately, but this is very unlikely given his history. REVIEW OF SYSTEMS: He has had no neurologic problems, headache, change in vision or hearing, chest pain, shortness of breath, urinary complaints, etc. Past medical history, family history, and personal and social histories can all be found in his previous admitting and discharge summaries. He does not follow up in the office. PHYSICAL EXAMINATION: Pulse is 126 with sinus rhythm and respirations are 36. Blood pressure is 100/40. He is afebrile. In general he appeared to be slender in no acute distress. Skin was dry. Head, ears, eyes, nose, mouth and throat were normal except for dry mucous membranes. Neck was supple. There were no neck masses. Chest was clear. Cardiac exam demonstrated sinus tachycardia. The abdomen was flat, soft and nontender, and bowel sounds were not heard. Extremities were normal. Neurologically he was intact. He is admitted to the hospital with the diagnoses: 1. Uncontrolled insulin-dependent type 1 diabetes. 2. Dehydration. 3. Sinus tachycardia. PLAN: 1. Bed rest. 2. IV fluids. 3. Insulin management to bring sugars under control while he is rehydrated. MMODL / IJN: [id number] /
[2018-06-10 17:51] LABS: Glucose,Whole Blood 209 mg/dL (75-99)
[2018-06-10 17:55] VITALS: BMI 17.4
[2018-06-10] MEDS: INSULIN ASPART 100 UNIT/ML 1 ML 10 ML VIAL SQ SCH ×2 (18:12→21:09)
[2018-06-10] MEDS: buPROPion XL 300 MG TAB.ER.24H PO SCH (19:33)
[2018-06-10] MEDS: FLUoxetine HCL 20 MG CAP PO SCH (19:34)
[2018-06-10 20:06] LABS: Glucose,Whole Blood 170 mg/dL (75-99)
[2018-06-10] MEDS: lamoTRIgine 25 MG TAB PO SCH (21:09)
[2018-06-10] MEDS: traZODone HCL 100 MG TAB PO SCH (22:27)
[2018-06-11 00:39] LABS: Glucose,Whole Blood 103 mg/dL (75-99)
[2018-06-11] MEDS ORDERED: INSULIN DETEMIR 100 UNIT/ML 10 ML VIAL SQ STA (01:19)
--- NOTE | 2018-06-11 01:48 | XR ---
EXAMINATION TYPE: XR chest 1V portable DATE OF EXAM: 06/11/2018 COMPARISON: 05/21/2018 HISTORY: Dehydration weakness TECHNIQUE: Single frontal view of the chest is obtained. FINDINGS: Heart and mediastinum are normal. Lungs are clear. Diaphragm is normal. Bony thorax is int act. There are chest leads. IMPRESSION: Normal chest. No change.
[2018-06-11 04:56] LABS: Glucose,Whole Blood 142 mg/dL (75-99)
[2018-06-11 07:01] LABS: Glucose,Whole Blood 206 mg/dL (75-99)
--- NOTE | 2018-06-11 07:29 | PN ---
PROGRESS NOTE DATE OF SERVICE: 06/10/2018. I am covering for Dr. Valenzuela. HISTORY OF PRESENT ILLNESS: This 22-year-old gentleman admitted with acute diabetic ketoacidosis. Apparently missed a dose of insulin. The patient also had nausea and vomiting at this time and GI symptoms prior to the episode. Patient had diabetic ketoacidosis. Patient also hypotension. The patient received up to 5 L of bolus. At this time the patient is being closely monitored. PAST MEDICAL HISTORY: Reviewed. REVIEW OF SYSTEMS: CARDIOVASCULAR SYSTEM: No angina. RESPIRATORY SYSTEM: As mentioned earlier. GI: As mentioned earlier. : No dysuria. NERVOUS SYSTEM: No numbness or weakness. MEDICATIONS: Current medications are reviewed and include: 1. Tylenol 650 q. p.r.n. 2. Wellbutrin. 3. Prozac 60 daily. 4. Heparin. 5. NovoLog scale. 6. Lamictal. 7. Zofran. 8. Protonix. 9. Desyrel. FAMILY HISTORY: No history of any heart disease or strokes in the family. PHYSICAL EXAMINATION: The patient is alert, oriented x3, pulse is 134, blood pressure 84/56, respiration 18, temperature 97.9, pulse ox 94% on room air. HEENT: Conjunctivae normal. NECK: No jugular venous distention. CARDIOVASCULAR: S1, S2 muffled. RESPIRATORY: Diminished breath sounds at the bases. No rhonchi. No crackles. ABDOMEN: Soft, nontender. No mass palpable. LEGS: No edema, no swelling. NERVOUS SYSTEM: No focal deficits. LABS: Labs are at this time shows WBC 16.5, hemoglobin is 18, sodium 138, potassium 5.4. ASSESSMENT: 1. Acute diabetic ketoacidosis, present on admission. 2. Hypotension, rule out sepsis. 3. Hyperkalemia. 4. Uncontrolled diabetes mellitus type 1. 5. Increased WBC. 6. History of THC abuse. 7. History of skin disorder. 8. History of adenoidectomy. 9. History of anxiety, depression. RECOMMENDATIONS AND DISCUSSION: Recommend to continue current medication, continue symptomatic treatment. I would recommend to continue the boluses, empiric antibiotics, cultures, infectious disease evaluation. I would also recommend Ativan p.r.n. and watch for any withdrawals. Prognosis guarded. Continue to monitor. If the blood pressure is not stable, I recommend transfer to ICU and continue to monitor. See orders for further details. Monitor blood sugars closely. MMODL / IJN: [id number] /
[2018-06-11] MEDS: INSULIN ASPART 100 UNIT/ML 1 ML 10 ML VIAL SQ SCH ×4 (08:09→21:22)
[2018-06-11 08:21] LABS: Basophils % (A) 1 %; Eosinophils # (A) 0.1 k/uL (0-0.7); Eosinophils % (A) 2 %; HCT 40.1 % (39.0-53.0); Lymphocytes # (A) 0.9 k/uL (1.0-4.8); Lymphocytes % (A) 19 %; MCV 94.3 fL (80.0-100.0); Mean Platelet Volume 6.4; Monocytes # (A) 0.4 k/uL (0-1.0); Monocytes % (A) 8 %; Neutrophils # (A) 3.3 k/uL (1.3-7.7); Neutrophils % (A) 69 %; Platelet Count 245 k/uL (150-450); RBC 4.25 m/uL (4.30-5.90); RDW 12.9 % (11.5-15.5); WBC 4.8 k/uL (4.0-11.0)
[2018-06-11 08:22] LABS: HGB 13.6 gm/dL (13.0-17.5)
[2018-06-11 08:25] LABS: ALT 53 U/L (21-72); AST 16 U/L (17-59); Alkaline Phosphatase 50 U/L (38-126); Anion Gap 5 mmol/L; Blood Urea Nitrogen 15 mg/dL (9-20); Calcium 8.3 mg/dL (8.4-10.2); Carbon Dioxide 26 mmol/L (22-30); Chloride 108 mmol/L (98-107); Glucose 171 mg/dL (74-99); Potassium 4.4 mmol/L (3.5-5.1); Sodium 139 mmol/L (137-145); Total Bilirubin 0.5 mg/dL (0.2-1.3); Total Protein 5.2 g/dL (6.3-8.2)
[2018-06-11] MEDS ORDERED: PANTOPRAZOLE 40 MG/10 ML VIAL IV SCH (09:00)
[2018-06-11] MEDS: FLUoxetine HCL 20 MG CAP PO SCH (09:36)
[2018-06-11] MEDS: buPROPion XL 300 MG TAB.ER.24H PO SCH (09:36)
[2018-06-11] MEDS: HEPARIN SODIUM,PORCINE 5,000 UNIT/ML 1 ML VIAL SQ SCH ×2 (09:36→21:24)
[2018-06-11 11:52] LABS: Glucose,Whole Blood 159 mg/dL (75-99)
[2018-06-11 17:24] LABS: Glucose,Whole Blood 167 mg/dL (75-99)
[2018-06-11 19:18] LABS: Glucose,Whole Blood 194 mg/dL (75-99)
[2018-06-11] MEDS ORDERED: INSULIN DETEMIR 100 UNIT/ML 10 ML VIAL SQ SCH (21:00)
[2018-06-11] MEDS: lamoTRIgine 25 MG TAB PO SCH (21:21)
[2018-06-11] MEDS: SODIUM CHLORIDE 0.9% 1,000 ML IV SCH (21:22)
[2018-06-11] MEDS: traZODone HCL 100 MG TAB PO SCH (22:31)
--- NOTE | 2018-06-12 00:50 | CONS ---
CONSULTATION DATE OF SERVICE: 06/11/2018. REASON FOR CONSULTATION: Sepsis. HISTORY OF PRESENT ILLNESS: The patient is a 22 -year-old female with past medical history significant for recently with previous history of DKA, presenting to the ER at [facility] on the with a chief complaint of nausea, vomiting and abdominal discomfort of 1 day duration. The patient did have multiple episodes of vomiting. The pain has been mostly in the epigastric area, more of a dull aching pain 3 to 4/10, and no radiation. The patient also have some loose stool but no blood or mucus. With these symptoms, the patient was evaluated by the ER physician. On arrival to the ER, the patient has been afebrile. He did have an episode of hypertension. The patient did have elevated white count on admission of 16.5. Patient UA has been negative. Acetone was negative. The patient has been treated for hyperglycemia with one episode of hypotension that seemed to have resolved. The patient blood sugar seemed to have improved as well. Rocephin was added today and Infectious Disease was consulted for concern for possible sepsis in view of the elevated white count, hypertension that was seen during this admission. The patient himself denies having any headache. No URI symptoms. The patient denies any chest pain or shortness of breath or cough and no urinary symptoms. REVIEW OF SYSTEMS: Positive points have been mentioned in HPI. Rest 14 systems are negative. PAST MEDICAL HISTORY: Insulin dependent diabetes mellitus in decreasing doses. PAST SURGICAL HISTORY: No major surgeries. SOCIAL HISTORY: The patient denies smoking or drug use. FAMILY HISTORY: Mother with history CVA/TIA. Father with history of hypertension and hyperlipidemia. ALLERGIES: No known drug allergies. MEDICATIONS: Medications include the patient is currently on Desyrel, Protonix, Zofran, Narcan, Lamictal, Levemir, NovoLog, heparin, Rocephin 1 g daily, Wellbutrin Tylenol. PHYSICAL EXAMINATION: Blood pressure 134/93 with a pulse of 75, temperature 98.3. He is 98% on room air. General description is a young male lying in bed in no distress. No tachypnea or accessory muscles use. HEENT: Shows no pallor or scleral icterus. Oral mucosa membranes are dry. No pharyngeal erythema pressure. Neck trachea is central no thyromegaly. Lungs unlabored breathing. Clear to auscultation anteriorly. No wheeze or crackles. Heart S1, S2. Regular rate and rhythm. ABDOMEN: Soft, no tenderness. No guarding. No organomegaly. EXTREMITIES: No edema feet. Skin examination: No rash or mass palpable neurological. Patient is Awake, alert, oriented and affect normal. LABS: Hemoglobin 13.1, white count0 4.8. Admission hemoglobin was 16.5 with a BUN of 15, creatinine 0.55 with liver enzymes normal, electrolytes are normal. UA is negative. Influenza serology was negative. Stool for C difficile has been requested. Chest x- ray negative for any infiltrate. DIAGNOSTIC IMPRESSION AND PLAN: Patient with leukocytosis, hypertension, more likely related to his diabetic ketoacidosis with concern for underlying infection less likely and acute viral gastroenteritis could be the etiology or respiratory his diabetic ketoacidosis. Clinically the patient has low for underlying bacterial infection though not entirely excluded. The patient currently chest x-ray was negative. UA was negative and no significant tenderness was noted. Abdominal examination. PLAN: 1. RN has been advised to obtain a stool specimen for culture as well C difficile. 2. Continue the empiric Rocephin at this point. 3. IV fluids. 4. However, his cultures remain to be negative. We will discontinue the antibiotic. Thank you for this consultation. Will follow this patient along with you. MMODL / IJN: [id number] /
[2018-06-12 07:15] LABS: Glucose,Whole Blood 84 mg/dL (75-99)
[2018-06-12] MEDS ORDERED: PANTOPRAZOLE 40 MG TABLET PO SCH (07:30)
[2018-06-12 08:10] LABS: Basophils % (A) 0 %; Eosinophils # (A) 0.1 k/uL (0-0.7); Eosinophils % (A) 1 %; HCT 40.5 % (39.0-53.0); HGB 13.8 gm/dL (13.0-17.5); Lymphocytes # (A) 1.4 k/uL (1.0-4.8); Lymphocytes % (A) 32 %; MCH 31.7 pg (25.0-35.0); MCV 93.1 fL (80.0-100.0); Mean Platelet Volume 6.3; Monocytes # (A) 0.4 k/uL (0-1.0); Monocytes % (A) 10 %; Neutrophils # (A) 2.3 k/uL (1.3-7.7); Neutrophils % (A) 53 %; Platelet Count 254 k/uL (150-450); RBC 4.35 m/uL (4.30-5.90); RDW 12.8 % (11.5-15.5); WBC 4.4 k/uL (4.0-11.0)
[2018-06-12] MEDS: SODIUM CHLORIDE 0.9% 1,000 ML IV SCH (08:52)
[2018-06-12] MEDS: buPROPion XL 300 MG TAB.ER.24H PO SCH (08:53)
[2018-06-12] MEDS: FLUoxetine HCL 20 MG CAP PO SCH (08:53)
[2018-06-12] MEDS: INSULIN ASPART 100 UNIT/ML 1 ML 10 ML VIAL SQ SCH ×3 (08:53→17:34)
[2018-06-12] MEDS: HEPARIN SODIUM,PORCINE 5,000 UNIT/ML 1 ML VIAL SQ SCH (08:55)
[2018-06-12 11:39] LABS: Glucose,Whole Blood 142 mg/dL (75-99)
[2018-06-12 15:00] VITALS: BP 114/80; PULSE 95; RESP 12; TEMP 98.2
--- NOTE | 2018-06-12 16:00 | PN ---
PROGRESS NOTE DATE OF SERVICE: 06/12/2018 REASON FOR FOLLOWUP: 1. Leukocytosis likely . 2. Possible viral gastroenteritis. INTERVAL HISTORY: The patient is currently afebrile. He is breathing comfortably, feeling better. No further nausea or vomiting has been reported. Patient's abdominal pain has resolved. He still has some loose stools but no blood or mucus in it. PHYSICAL EXAMINATION: Blood pressure is 114/80 with a pulse of 75, temperature 98.2. He is 99% on room air. General description is a young male lying in bed in no distress. RESPIRATORY SYSTEM: Unlabored breathing. Clear to auscultation anteriorly. HEART: S1, S2. Regular rate and rhythm. ABDOMEN: Soft. No tenderness. LABS: Hemoglobin 13.8, white count 4.4. Stool culture pending. Blood culture negative. Urine culture negative. Stool for C difficile was negative. DIAGNOSTIC IMPRESSION AND PLAN: Patient admitted to hospital with acute nausea, vomiting and diarrhea in this patient with likely diabetic ketoacidosis. Did have elevated white count, more likely because of hemoconcentration. Clinical suspicion is low for underlying bacterial infection with concern for possible viral gastroenteritis, improved symptomatically patient advised to increase his fluid intake. If any recurrence or worsening diarrhea, abdominal pain or development of any fever, to let us know right away. MMODL / IJN: [id number] /
[2018-06-12 17:22] LABS: Glucose,Whole Blood 250 mg/dL (75-99)
--- NOTE | 2018-06-12 19:56 | P.PN ---
Subjective Progress Note Date: 06/11/18 Progress note being dictated for Dr. Villa. Interval history: This a 22-year-old gentleman admitted with acute DKA, hypotension and multiple other medical issues. Afebrile, T-max 99, WBC WNL.. Significant clinical improvement, with systolic blood pressure currently in the 120s, blood sugars ranging from 140s to 170s, 5, CO2 26. Maintained on empiric IV antibiotics of Rocephin with cultures pending. UA negative. Denies shortness of breath, cough, palpitations. Denies lightheadedness dizziness or focal deficits. Objective - Vital Signs Vital signs: Vital Signs Temp 98.3 F 06/11/18 19:21 Pulse 95 06/11/18 19:21 Resp 18 06/11/18 19:21 BP 134/93 06/11/18 19:21 Pulse Ox 98 06/11/18 19:21 Intake & Output 06/11/18 06/11/18 06/12/18 06:59 18:59 06:59 Intake Total 3080 1200 Balance 3080 1200 Weight 63.503 kg Intake: Intake, IV Titration 2000 Amount Sodium Chloride 0.9% 1, 2000 000 ml @ 200 mls/hr IV . Q5H STA Rx#:[id number] Oral 1080 1200 Other: # Voids 4 1 - Exam PHYSICAL EXAM: VITAL SIGNS: As above GENERAL: Sitting up in bed, no acute distress HEENT: Conjunctivae normal. eyes normal. Oral mucosa moist NECK: No JVD. No thyroid enlargement. No LNs CARDIOVASCULAR: S1, S2 muffled. No murmur RESPIRATION: Breath sounds diminished in the bases. No rhonchi or crackles. No bronchial breathing. ABDOMEN: Soft, nontender . No guarding. no masses palpable. Bowel sounds heard. LEGS: No edema. no swelling PSYCHIATRY: Alert and oriented -3, mood and affect normal. NERVOUS SYSTEM: Cranial N 2-12 grossly normal. Moves all 4 limbs. Diffuse weakness No focal deficits. Skin: no rash - Labs CBC & Chem 7: 06/12/18 07:07 06/11/18 07:02 Labs: Abnormal Lab Results - Last 24 Hours (Table) 06/11/18 06/11/18 06/11/18 Range/Units 00:37 04:55 06:55 RBC (4.30-5.90) m/uL Lymphocytes # (1.0-4.8) k/uL Chloride (98-107) mmol/L Creatinine (0.66-1.25) mg/dL Glucose (74-99) mg/dL POC Glucose (mg/dL) 103 H 142 H 206 H (75-99) mg/dL Calcium (8.4-10.2) mg/dL AST (17-59) U/L Total Protein (6.3-8.2) g/dL Albumin (3.5-5.0) g/dL 06/11/18 06/11/18 06/11/18 Range/Units 07:02 07:02 11:45 RBC 4.25 L (4.30-5.90) m/uL Lymphocytes # 0.9 L (1.0-4.8) k/uL Chloride 108 H (98-107) mmol/L Creatinine 0.55 L (0.66-1.25) mg/dL Glucose 171 H (74-99) mg/dL POC Glucose (mg/dL) 159 H (75-99) mg/dL Calcium 8.3 L (8.4-10.2) mg/dL AST 16 L (17-59) U/L Total Protein 5.2 L (6.3-8.2) g/dL Albumin 3.0 L (3.5-5.0) g/dL 06/11/18 06/11/18 Range/Units 17:15 19:17 RBC (4.30-5.90) m/uL Lymphocytes # (1.0-4.8) k/uL Chloride (98-107) mmol/L Creatinine (0.66-1.25) mg/dL Glucose (74-99) mg/dL POC Glucose (mg/dL) 167 H 194 H (75-99) mg/dL Calcium (8.4-10.2) mg/dL AST (17-59) U/L Total Protein (6.3-8.2) g/dL Albumin (3.5-5.0) g/dL Microbiology - Last 24 Hours (Table) 06/11/18 06:45 Urine Culture - Preliminary Urine,Clean Catch Assessment and Plan Assessment: -Acute DKA present on admission -Hypotension, rule out sepsis, improved, possible viral gastroenteritis -Hyperkalemia, resolved -History of THC abuse Plan: Continue on current medication regime ,monitoring and symptomatic treatment. Maintain IV antibiotics as per infectious disease. Follow cultures closely. Discharge planning in progress pending final culture results. The impression and plan of care has been dictated as directed. : I performed a history and examination of this patient, discussed the same with the dictator. I agree with the dictator's note ,documented as a scribe. Any additional findings or plans will be noted.
--- NOTE | 2018-06-13 08:25 | DS ---
DISCHARGE SUMMARY DATE OF SERVICE: 06/12/2018 FINAL DIAGNOSES: 1. Diabetes mellitus type 1, uncontrolled with hypoglycemia and acute diabetic ketoacidosis. 2. Hypotension, improved, possibly viral gastroenteritis, sepsis ruled out. 3. Hypokalemia, resolved. 4. History of THC abuse. DISCHARGE DISPOSITION: The patient is being discharged in stable condition with guarded. HISTORY OF PRESENT ILLNESS: This 22-year-old gentleman with past medical history admitted with significant diabetes type 1 and diabetic ketoacidosis. Patient improved significantly. The patient also had episodes of hypotension with viral gastroenteritis, treated symptomatically with improvement. There is no evidence of sepsis. The patient is followed by Dr. Valenzuela in the outpatient setting. On exam vitals are stable. Cardiovascular: S1, S2. Abdomen is soft. Nervous System: No focal deficits. DISCHARGE ADVICE AND MEDICATIONS: 1. Diet is consistent carb. 2. Activity limited until followup. 3. Follow up with Dr. Valenzuela in 2-3 days. 4. Medications are: Wellbutrin XL 300 mg p.o. daily. 5. Prozac 60 mg p.o. daily. 6. NovoLog 8 units subcu a.c. t.i.d. 7. Lantus 22 units subcu q.h.s. 8. Lamictal 50 mg p.o. daily. 9. Protonix 40 mg daily. 10.Desyrel 200 mg p.o. q.h.s. Once again the patient is discharged in stable condition with guarded prognosis. MMODL / IJN: [id number] /
== END 2018-06-12 18:20 | disposition home or self-care (01) ==
LOC: EC 12:15 → 4SSUR 14:40
PROVIDERS: ADMIT Family Medicine; ATTEND Family Medicine
DX: E10.10 Type 1 diabetes mellitus with ketoacidosis without coma (principal); E86.0 Dehydration; I95.9 Hypotension, unspecified; E87.5 Hyperkalemia; R19.7 Diarrhea, unspecified; E10.43 Type 1 diabetes mellitus with diabetic autonomic (poly)neuropathy; K31.84 Gastroparesis; R48.2 Apraxia; R00.0 Tachycardia, unspecified; D72.829 Elevated white blood cell count, unspecified; J45.909 Unspecified asthma, uncomplicated; F41.9 Anxiety disorder, unspecified; T38.3X6A Underdosing of insulin and oral hypoglycemic [antidiabetic] drugs, initial encounter; Z91.138 Patient's unintentional underdosing of medication regimen for other reason; F32.9 Major depressive disorder, single episode, unspecified; F12.10 Cannabis abuse, uncomplicated; Z79.4 Long term (current) use of insulin; Z79.899 Other long term (current) drug therapy; Z91.5 Personal history of self-harm; Z87.2 Personal history of diseases of the skin and subcutaneous tissue; Z82.49 Family history of ischemic heart disease and other diseases of the circulatory system; Z83.49 Family history of other endocrine, nutritional and metabolic diseases; Z82.3 Family history of stroke
CPT/HCPCS: 96365; 96375 ×2; 96361; 99285; 36415; 80053 ×2; 82150; 82803; 82009; 83605 ×2; 83690; 85025 ×3; 81003; 87040; 87324; 87086; 87045; 87046; 87502; 71045; G0378 ×3; J2405; J0696 ×2; C9113

== ENCOUNTER 2018-06-24 15:06 | Inpatient (IN) | payer OTHER ==
[2018-06-24 15:16] LABS: Glucose,Whole Blood 440 mg/dL (75-99)
[2018-06-24] MEDS ORDERED: SODIUM CHLORIDE 0.9% 2,000 ML IV ONE (15:22)
--- NOTE | 2018-06-24 15:25 | ED ---
General Adult HPI - General Chief complaint: Extremity Problem,Nontraumatic Stated complaint: leg pain, hyperglycemia Time Seen by Provider: 06/24/18 15:07 Source: EMS Mode of arrival: EMS Limitations: no limitations - History of Present Illness Initial comments: This is a 22-year-old male with history of type 1 diabetes with multiple episodes of DKA who was recently hospitalized for the same. The patient presents to the emergency department today because of right lower extremity numbness, weakness, and pain. He states that he woke up approximately one hour prior to arrival and noticed that his right lower extremity was tingling and felt like pins and needles. He stated that he tried to stand up andit was very weak and he fell to his left side. He denies any head injury. No lower back injury. He states he did not injure the leg with the fall and that occur prior to the fall. He states the last time he noticed that the leg was normal was around 6 or 6:30 this morning when he got up to get a glass of water. The patient claims that he's been using his insulin as prescribed. He states he's been checking his sugars at home and they have been normal area denies any chest pain or trouble breathing. No cough. No fevers or chills. No nausea, vomiting, or diarrhea. Denies dysuria or hematuria. Again he denies any back pain. He states that he has not had anything like this previously. He states that the pain seems to be more intense over the knee and is worse with moving the lower extremity. The patient called an ambulance when he notices symptoms and came to the emergency department. EMS noted that his sugar was in the 300s and he was tachycardic. He denies any other acute complaints. Currently states that he does not want any pain medications. - Related Data Previous Rx's Medication Instructions Recorded FLUoxetine HCL [PROzac] 60 mg PO DAILY 30 Days #90 cap 06/01/18 buPROPion XL [Wellbutrin XL] 300 mg PO DAILY 30 Days #30 06/01/18 tab.er.24h lamoTRIgine [LaMICtal] 50 mg PO 2100 30 Days #60 tab 06/01/18 traZODone HCL [Desyrel] 200 mg PO HS 30 Days #90 tab 06/01/18 Insulin Aspart [NovoLOG 8 unit SQ AC-TID 30 Days #1 vial 06/12/18 (formulary)] Insulin Glargine [Lantus] 22 unit SQ HS 30 Days #1 vial 06/12/18 Allergies Allergy/AdvReac Type Severity Reaction Status Date / Time No Known Allergies Allergy Verified 06/24/18 15:51 Review of Systems ROS Statement: Those systems with pertinent positive or pertinent negative responses have been documented in the HPI. ROS Other: All systems not noted in ROS Statement are negative. Past Medical History Past Medical History: Diabetes Mellitus, Skin Disorder Additional Past Medical History / Comment(s): , insulin dependent diabetes oral motor apraxia; previous suicidal attempts anxiety/depression, previous hospital physicians for DKA,gastroparesis. History of Any Multi-Drug Resistant Organisms: None Reported Past Surgical History: Adenoidectomy Additional Past Surgical History / Comment(s): 2002 Past Anesthesia/Blood Transfusion Reactions: No Reported Reaction Past Psychological History: Anxiety, Depression Smoking Status: Never smoker Past Alcohol Use History: None Reported Past Drug Use History: Marijuana - Past Family History Mother Family Medical History: CVA/TIA Father Family Medical History: Hyperlipidemia, Hypertension Additional Family Medical History / Comment(s): . General Exam - General Exam Comments Initial Comments: Constitutional: Awake alert Appears comfortable Head: Normocephalic atraumatic Eyes: no conjunctival injection No scleral icterus EOMI ENT: TMs clear bilaterally, oropharynx is nonerythematous or edematous Neck: No JVD Supple Heart: Tachycardic with regular rhythm normal S1-S2 no murmurs Lungs: Clear to auscultation bilaterally No wheezing No rales Abdomen: Soft nondistended nontender Back: There is no tenderness along the spine from the neck down to the lumbar region Extremities: Non edematous DP pulses intact Radial pulses intact, there is tenderness around the knee joint diffusely. There is no erythema or swelling of the knee joint. The patient has normal femoral pulses bilaterally Neuro: A&Ox3, cranial nerves II through XII are grossly intact, 5 out of 5 strength in upper extremities and left lower extremity. The patient is 4 out of 5 strength in the right lower extremity. He seems to be able to hold it up however has a significant amount of discomfort when he does in the leg does fall to the gurney. He claims to have a pins and needle sensation throughout the entire leg. No focal neurologic deficits Psych: Appropriate mood and affect Limitations: no limitations Course Vital Signs 06/24/18 06/24/18 15:12 16:59 Pulse Rate 141 H 120 H Respiratory 18 18 Rate Blood Pressure 116/78 114/70 O2 Sat by Pulse 97 100 Oximetry EKG Findings - EKG Comments: EKG Findings:: EKG showing sinus tachycardia with a rate of 131. There is no abnormal ST segment changes or T-wave inversions. QTC is 451. There is right axis deviation Medical Decision Making - Medical Decision Making This is a 22-year-old male who presents emergency department for right lower extremity pain area the patient had x-rays performed that were unremarkable. Dopplers were negative for DVT. The patient stated that his pain was improved over time with fluids. Blood work is showing what appears to be in mild DKA. Bicarb is low and his anion gap was high. He does have ketones in his urine did start him on IV insulin fusion and DKA protocol. He was persistently tachycardic emergency department even after 2 L of fluids. He is given a third. His heart rate did improve however he does have persistent tachycardia. His d-dimer was negative. He has no chest pain or shortness of breath. With a negative Doppler I do not feel that a CT is warranted at this time. I'm going to admit the patient to the hospital for mild DKA and persistent tachycardia. Dr. Valenzuela except see admission. All questions were answered. - Lab Data Result diagrams: 06/24/18 16:20 06/24/18 16:20 Lab Results 06/24/18 06/24/18 06/24/18 Range/Units 15:14 16:00 16:20 WBC (4.0-11.0) k/uL RBC (4.30-5.90) m/uL Hgb (13.0-17.5) gm/dL Hct (39.0-53.0) % MCV (80.0-100.0) fL MCH (25.0-35.0) pg MCHC (31.0-37.0) g/dL RDW (11.5-15.5) % Plt Count (150-450) k/uL Neutrophils % % Lymphocytes % % Monocytes % % Eosinophils % % Basophils % % Neutrophils # (1.3-7.7) k/uL Lymphocytes # (1.0-4.8) k/uL Monocytes # (0-1.0) k/uL Eosinophils # (0-0.7) k/uL Basophils # (0-0.2) k/uL Hyperchromasia ESR (0-15) mm/hr PT (9.0-12.0) sec INR (<1.2) APTT (22.0-30.0) sec D-Dimer (<0.60) mg/L FEU VBG pH (7.31-7.41) VBG pCO2 (37-51) mmHg VBG HCO3 (24-28) mmol/L Sodium (137-145) mmol/L Potassium (3.5-5.1) mmol/L Chloride (98-107) mmol/L Carbon Dioxide (22-30) mmol/L Anion Gap mmol/L BUN (9-20) mg/dL Creatinine (0.66-1.25) mg/dL Est GFR (CKD-EPI)AfAm (>60 ml/min/1.73 sqM) Est GFR (CKD-EPI)NonAf (>60 ml/min/1.73 sqM) Glucose (74-99) mg/dL POC Glucose (mg/dL) 440 H (75-99) mg/dL POC Glu Embedded Engineer ID Kourtney Gamez Plasma Lactic Acid Len (0.7-2.0) mmol/L Calcium (8.4-10.2) mg/dL Magnesium (1.6-2.3) mg/dL Total Bilirubin (0.2-1.3) mg/dL AST (17-59) U/L ALT (21-72) U/L Alkaline Phosphatase (38-126) U/L Troponin I (0.000-0.034) ng/mL C-Reactive Protein (<10.0) mg/L Total Protein (6.3-8.2) g/dL Albumin (3.5-5.0) g/dL Urine Color Urine Appearance (Clear) Urine pH (5.0-8.0) Ur Specific [place] (1.001-1.035) Urine Protein (Negative) Urine Glucose (UA) (Negative) Urine Ketones (Negative) Urine Blood (Negative) Urine Nitrite (Negative) Urine Bilirubin (Negative) Urine Urobilinogen (<2.0) mg/dL Ur Leukocyte Esterase (Negative) Blood Type A Negative Blood Type Confirm A Negative Blood Type Recheck CABO Indicated Antibody Screen NEGATIVE Spec Expiration Date 06/27/2018231906/24/18 06/24/18 06/24/18 Range/Units 16:20 16:20 16:20 WBC 13.0 H (4.0-11.0) k/uL RBC 5.81 (4.30-5.90) m/uL Hgb 18.0 H D (13.0-17.5) gm/dL Hct 51.6 (39.0-53.0) % MCV 88.8 (80.0-100.0) fL MCH 31.0 (25.0-35.0) pg MCHC 34.9 (31.0-37.0) g/dL RDW 12.5 (11.5-15.5) % Plt Count 517 H D (150-450) k/uL Neutrophils % 63 % Lymphocytes % 29 % Monocytes % 4 % Eosinophils % 1 % Basophils % 1 % Neutrophils # 8.2 H (1.3-7.7) k/uL Lymphocytes # 3.7 (1.0-4.8) k/uL Monocytes # 0.6 (0-1.0) k/uL Eosinophils # 0.1 (0-0.7) k/uL Basophils # 0.1 (0-0.2) k/uL Hyperchromasia Slight ESR 2 (0-15) mm/hr PT (9.0-12.0) sec INR (<1.2) APTT (22.0-30.0) sec D-Dimer (<0.60) mg/L FEU VBG pH (7.31-7.41) VBG pCO2 (37-51) mmHg VBG HCO3 (24-28) mmol/L Sodium 133 L (137-145) mmol/L Potassium 4.6 (3.5-5.1) mmol/L Chloride 98 (98-107) mmol/L Carbon Dioxide 18 L (22-30) mmol/L Anion Gap 17 mmol/L BUN 18 (9-20) mg/dL Creatinine 0.46 L (0.66-1.25) mg/dL Est GFR (CKD-EPI)AfAm >90 (>60 ml/min/1.73 sqM) Est GFR (CKD-EPI)NonAf >90 (>60 ml/min/1.73 sqM) Glucose 390 H (74-99) mg/dL POC Glucose (mg/dL) (75-99) mg/dL POC Glu Embedded Engineer ID Plasma Lactic Acid Len 1.7 (0.7-2.0) mmol/L Calcium 9.6 (8.4-10.2) mg/dL Magnesium 1.9 (1.6-2.3) mg/dL Total Bilirubin 0.9 (0.2-1.3) mg/dL AST 17 (17-59) U/L ALT 42 (21-72) U/L Alkaline Phosphatase 71 (38-126) U/L Troponin I (0.000-0.034) ng/mL C-Reactive Protein <5.0 (<10.0) mg/L Total Protein 7.4 (6.3-8.2) g/dL Albumin 4.7 (3.5-5.0) g/dL Urine Color Urine Appearance (Clear) Urine pH (5.0-8.0) Ur Specific [place] (1.001-1.035) Urine Protein (Negative) Urine Glucose (UA) (Negative) Urine Ketones (Negative) Urine Blood (Negative) Urine Nitrite (Negative) Urine Bilirubin (Negative) Urine Urobilinogen (<2.0) mg/dL Ur Leukocyte Esterase (Negative) Blood Type Blood Type Confirm Blood Type Recheck Antibody Screen Spec Expiration Date 06/24/18 06/24/18 06/24/18 Range/Units 16:20 16:20 16:20 WBC (4.0-11.0) k/uL RBC (4.30-5.90) m/uL Hgb (13.0-17.5) gm/dL Hct (39.0-53.0) % MCV (80.0-100.0) fL MCH (25.0-35.0) pg MCHC (31.0-37.0) g/dL RDW (11.5-15.5) % Plt Count (150-450) k/uL Neutrophils % % Lymphocytes % % Monocytes % % Eosinophils % % Basophils % % Neutrophils # (1.3-7.7) k/uL Lymphocytes # (1.0-4.8) k/uL Monocytes # (0-1.0) k/uL Eosinophils # (0-0.7) k/uL Basophils # (0-0.2) k/uL Hyperchromasia ESR (0-15) mm/hr PT 10.0 (9.0-12.0) sec INR 0.9 (<1.2) APTT 25.8 (22.0-30.0) sec D-Dimer <0.17 (<0.60) mg/L FEU VBG pH (7.31-7.41) VBG pCO2 (37-51) mmHg VBG HCO3 (24-28) mmol/L Sodium (137-145) mmol/L Potassium (3.5-5.1) mmol/L Chloride (98-107) mmol/L Carbon Dioxide (22-30) mmol/L Anion Gap mmol/L BUN (9-20) mg/dL Creatinine (0.66-1.25) mg/dL Est GFR (CKD-EPI)AfAm (>60 ml/min/1.73 sqM) Est GFR (CKD-EPI)NonAf (>60 ml/min/1.73 sqM) Glucose (74-99) mg/dL POC Glucose (mg/dL) (75-99) mg/dL POC Glu Embedded Engineer ID Plasma Lactic Acid Len (0.7-2.0) mmol/L Calcium (8.4-10.2) mg/dL Magnesium (1.6-2.3) mg/dL Total Bilirubin (0.2-1.3) mg/dL AST (17-59) U/L ALT (21-72) U/L Alkaline Phosphatase (38-126) U/L Troponin I <0.012 (0.000-0.034) ng/mL C-Reactive Protein (<10.0) mg/L Total Protein (6.3-8.2) g/dL Albumin (3.5-5.0) g/dL Urine Color Light Yellow Urine Appearance Clear (Clear) Urine pH 5.0 (5.0-8.0) Ur Specific [place] 1.038 H (1.001-1.035) Urine Protein Negative (Negative) Urine Glucose (UA) 4+ H (Negative) Urine Ketones 3+ H (Negative) Urine Blood Negative (Negative) Urine Nitrite Negative (Negative) Urine Bilirubin Negative (Negative) Urine Urobilinogen <2.0 (<2.0) mg/dL Ur Leukocyte Esterase Negative (Negative) Blood Type Blood Type Confirm Blood Type Recheck Antibody Screen Spec Expiration Date 06/24/18 Range/Units 16:56 WBC (4.0-11.0) k/uL RBC (4.30-5.90) m/uL Hgb (13.0-17.5) gm/dL Hct (39.0-53.0) % MCV (80.0-100.0) fL MCH (25.0-35.0) pg MCHC (31.0-37.0) g/dL RDW (11.5-15.5) % Plt Count (150-450) k/uL Neutrophils % % Lymphocytes % % Monocytes % % Eosinophils % % Basophils % % Neutrophils # (1.3-7.7) k/uL Lymphocytes # (1.0-4.8) k/uL Monocytes # (0-1.0) k/uL Eosinophils # (0-0.7) k/uL Basophils # (0-0.2) k/uL Hyperchromasia ESR (0-15) mm/hr PT (9.0-12.0) sec INR (<1.2) APTT (22.0-30.0) sec D-Dimer (<0.60) mg/L FEU VBG pH 7.38 (7.31-7.41) VBG pCO2 33 L (37-51) mmHg VBG HCO3 19 L (24-28) mmol/L Sodium (137-145) mmol/L Potassium (3.5-5.1) mmol/L Chloride (98-107) mmol/L Carbon Dioxide (22-30) mmol/L Anion Gap mmol/L BUN (9-20) mg/dL Creatinine (0.66-1.25) mg/dL Est GFR (CKD-EPI)AfAm (>60 ml/min/1.73 sqM) Est GFR (CKD-EPI)NonAf (>60 ml/min/1.73 sqM) Glucose (74-99) mg/dL POC Glucose (mg/dL) (75-99) mg/dL POC Glu Embedded Engineer ID Plasma Lactic Acid Len (0.7-2.0) mmol/L Calcium (8.4-10.2) mg/dL Magnesium (1.6-2.3) mg/dL Total Bilirubin (0.2-1.3) mg/dL AST (17-59) U/L ALT (21-72) U/L Alkaline Phosphatase (38-126) U/L Troponin I (0.000-0.034) ng/mL C-Reactive Protein (<10.0) mg/L Total Protein (6.3-8.2) g/dL Albumin (3.5-5.0) g/dL Urine Color Urine Appearance (Clear) Urine pH (5.0-8.0) Ur Specific [place] (1.001-1.035) Urine Protein (Negative) Urine Glucose (UA) (Negative) Urine Ketones (Negative) Urine Blood (Negative) Urine Nitrite (Negative) Urine Bilirubin (Negative) Urine Urobilinogen (<2.0) mg/dL Ur Leukocyte Esterase (Negative) Blood Type Blood Type Confirm Blood Type Recheck Antibody Screen Spec Expiration Date Disposition Clinical Impression: DKA (diabetic ketoacidoses), Tachycardia Disposition: ADMITTED IP TO THIS [facility] Condition: Stable Referrals: Brown Valenzuela MD [Primary Care Provider] - 1-2 days Decision to Admit Reason: Admit from EC
[2018-06-24 16:30] LABS: Appearance,Urine Clear (Clear); Bilirubin,Urine Negative (Negative); Blood,Urine Negative (Negative); Color,Urine Light Yellow; Glucose,Urine (UA) 4+ (Negative); Leukocyte Esterase,Urine Negative (Negative); Nitrite,Urine Negative (Negative); Protein,Urine Negative (Negative); Specific Gravity,Urine 1.038 (1.001-1.035); Urobilinogen,Urine <2.0 mg/dL (<2.0)
[2018-06-24 16:33] LABS: Basophils # (A) 0.1 k/uL (0-0.2); Basophils % (A) 1 %; Eosinophils # (A) 0.1 k/uL (0-0.7); Eosinophils % (A) 1 %; HCT 51.6 % (39.0-53.0); Hyperchromasia Slight; Lymphocytes # (A) 3.7 k/uL (1.0-4.8); Lymphocytes % (A) 29 %; MCHC 34.9 g/dL (31.0-37.0); MCV 88.8 fL (80.0-100.0); Mean Platelet Volume 5.9; Monocytes # (A) 0.6 k/uL (0-1.0); Monocytes % (A) 4 %; Neutrophils # (A) 8.2 k/uL (1.3-7.7); Neutrophils % (A) 63 %; RBC 5.81 m/uL (4.30-5.90); RDW 12.5 % (11.5-15.5)
[2018-06-24 16:40] LABS: ALT 42 U/L (21-72); AST 17 U/L (17-59); Albumin 4.7 g/dL (3.5-5.0); Alkaline Phosphatase 71 U/L (38-126); Anion Gap 17 mmol/L; Blood Urea Nitrogen 18 mg/dL (9-20); C Reactive Protein <5.0 mg/L (<10.0); Calcium 9.6 mg/dL (8.4-10.2); Carbon Dioxide 18 mmol/L (22-30); Chloride 98 mmol/L (98-107); Glucose 390 mg/dL (74-99); Magnesium 1.9 mg/dL (1.6-2.3); Potassium 4.6 mmol/L (3.5-5.1); Sodium 133 mmol/L (137-145); Total Bilirubin 0.9 mg/dL (0.2-1.3); Total Protein 7.4 g/dL (6.3-8.2)
--- NOTE | 2018-06-24 16:40 | XR ---
EXAMINATION TYPE: XR chest 2V DATE OF EXAM: 06/24/2018 COMPARISON: 06/11/2018 INDICATION: Tachycardia TECHNIQUE: Frontal and lateral views of the chest are obtained. FINDINGS: The heart size is normal. The pulmonary vasculature is normal. The lungs are clear. IMPRESSION: 1. No acute pulmonary process.
--- NOTE | 2018-06-24 16:40 | XR ---
Lumbar spine HISTORY: Pain, burning and tingling 3 views of the lumbar spine Bone mineralization, disc spaces and alignment are maintained. There is a mild spinal curvature. No p araspinal mass. IMPRESSION: Mild spinal curvature.
[2018-06-24 16:42] LABS: D-Dimer <0.17 mg/L FEU (<0.60); INR 0.9 (<1.2); Partial Thromboplastin Time 25.8 sec (22.0-30.0)
--- NOTE | 2018-06-24 16:42 | XR ---
Right knee HISTORY: Pain 4 views of the right knee Joint spaces and alignment are maintained. Question some decreased bone mineralization. No fracture o r dislocation. No evident joint effusion. IMPRESSION: There may be a decrease in bone mineralization.
[2018-06-24 16:48] LABS: Ketones,Urine 3+ (Negative)
[2018-06-24 16:49] LABS: Platelet Count 517 k/uL (150-450)
[2018-06-24 17:10] LABS: VBG PH 7.38 (7.31-7.41)
[2018-06-24] MEDS ORDERED: INSULIN REGULAR 100 UNIT in SODIUM CHLORIDE 0.9% 100 ML IV SCH (17:15)
--- NOTE | 2018-06-24 17:39 | US ---
EXAMINATION TYPE: US venous doppler duplex LE DATE OF EXAM: 06/24/2018 5:18 PM COMPARISON: NONE CLINICAL HISTORY: Pain. Right leg pain x 1 day SIDE PERFORMED: Bilateral TECHNIQUE: The lower extremity deep venous system is examined utilizing real time linear array sonog dorothy with graded compression, doppler sonography and color-flow sonography. VESSELS IMAGED: External Iliac Vein (EIV) Common Femoral Vein Deep Femoral Vein Greater Saphenous Vein * Femoral Vein Popliteal Vein Small Saphenous Vein * Proximal Calf Veins (* superficial vessels) Right Leg: Appears negative for DVT Left Leg: Appears negative for DVT IMPRESSION: No evidence of deep venous thrombosis in both legs.
[2018-06-24] MEDS ORDERED: SODIUM CHLORIDE 0.9% 1,000 ML IV ONE (17:43)
[2018-06-24] MEDS: SODIUM CHLORIDE 0.9% 1,000 ML IV SCH ×2 (17:48→22:40)
[2018-06-24 17:54] LABS: Erythrocyte Sedimentation Rate 2 mm/hr (0-15)
[2018-06-24] MEDS ORDERED: NALOXONE 0.4 MG/ML 1 ML VIAL IV PRN (18:39)
[2018-06-24] MEDS ORDERED: ACETAMINOPHEN TAB 325 MG TAB PO PRN (18:39)
[2018-06-24 19:14] LABS: Glucose,Whole Blood 208 mg/dL (75-99)
[2018-06-24] MEDS ORDERED: D5-0.45% NACL WITH KCL 20MEQ/L 1,000 ML IV SCH (19:15)
--- NOTE | 2018-06-24 19:51 | CT ---
EXAMINATION TYPE: CT angio chest DATE OF EXAM: 06/24/2018 7:28 PM COMPARISON: None HISTORY: Upper left chest pain CT DLP: 219.3 mGycm Automated exposure control for dose reduction was used. CONTRAST: CTA scan of the thorax is performed with IV Contrast, patient injected with 100 mL of Isovue 370, pul monary embolism protocol. . FINDINGS: There are 3-D post processed images. Heart size is normal. Mediastinum is normal. There are no hilar masses. There is no evidence of thoracic aortic aneurysm or dissection. There is normal contrast opac ification of the pulmonary arteries. I see no filling defect. There is a 1 cm right peribronchial lym ph node. The lungs are clear of infiltrate. There is no pleural effusion. There is no pneumothorax. The bony t horax is intact. IMPRESSION: Normal exam. No evidence of pulmonary embolism.
[2018-06-24 20:17] LABS: Glucose,Whole Blood 118 mg/dL (75-99)
[2018-06-24 20:28] LABS: Glucose,Whole Blood 111 mg/dL (75-99)
[2018-06-24 21:00] LABS: Glucose,Whole Blood 93 mg/dL (75-99)
[2018-06-24 21:21] LABS: Anion Gap 7 mmol/L; Blood Urea Nitrogen 15 mg/dL (9-20); Carbon Dioxide 22 mmol/L (22-30); Chloride 107 mmol/L (98-107); Glucose 87 mg/dL (74-99); Potassium 3.6 mmol/L (3.5-5.1); Sodium 136 mmol/L (137-145)
[2018-06-24 21:47] LABS: Glucose,Whole Blood 88 mg/dL (75-99)
[2018-06-24] MEDS ORDERED: INSULIN DETEMIR 100 UNIT/ML 10 ML VIAL SQ STA (22:01)
[2018-06-25 00:17] LABS: Hemoglobin A1C 11.1 % (4.0-6.0)
[2018-06-25 00:22] LABS: Glucose,Whole Blood 304 mg/dL (75-99)
[2018-06-25 01:17] LABS: Anion Gap 9 mmol/L; Blood Urea Nitrogen 14 mg/dL (9-20); Carbon Dioxide 21 mmol/L (22-30); Chloride 103 mmol/L (98-107); Glucose 296 mg/dL (74-99); Phosphorus 3.7 mg/dL (2.5-4.5); Potassium 3.9 mmol/L (3.5-5.1); Sodium 133 mmol/L (137-145)
[2018-06-25] MEDS: INSULIN REGULAR 100 UNIT in SODIUM CHLORIDE 0.9% 100 ML IV SCH ×2 (01:46→23:14)
[2018-06-25 01:53] LABS: Glucose,Whole Blood 305 mg/dL (75-99)
[2018-06-25] MEDS: SODIUM CHLORIDE 0.9% 1,000 ML IV SCH ×3 (01:53→23:22)
[2018-06-25 04:24] LABS: Glucose,Whole Blood 260 mg/dL (75-99)
[2018-06-25 06:08] LABS: Glucose,Whole Blood 163 mg/dL (75-99)
[2018-06-25 08:12] LABS: Glucose,Whole Blood 112 mg/dL (75-99)
[2018-06-25] MEDS: INSULIN ASPART 100 UNIT/ML 1 ML 10 ML VIAL SQ SCH ×3 (09:00→17:22)
[2018-06-25 09:53] LABS: Glucose,Whole Blood 249 mg/dL (75-99)
[2018-06-25 12:16] LABS: Glucose,Whole Blood 150 mg/dL (75-99)
[2018-06-25 14:40] LABS: Glucose,Whole Blood 164 mg/dL (75-99)
[2018-06-25 15:51] VITALS: BMI 16.2
[2018-06-25 16:54] LABS: Glucose,Whole Blood 138 mg/dL (75-99)
--- NOTE | 2018-06-25 17:44 | HP ---
HISTORY AND PHYSICAL CHIEF COMPLAINT: Numbness in the right leg and uncontrolled diabetes. HISTORY OF PRESENT ILLNESS: This is another recent admission for this 22-year-old white male. He is a noncompliant diabetic and refuses to take care of himself. He came to the emergency room because he was complaining of "numbness" in the right leg. He describes it as going from the groin down all the way around, without any weakness or pain. He has never had this before. There is no history of trauma. REVIEW OF SYSTEMS: Otherwise unremarkable. He has not been vomiting. Past medical history, family history, and personal and social histories are all essentially unremarkable and unchanged. They are already detailed in prior records. He is supposed to be on Prozac 40 mg once a day, Lantus 22 mg a day and Humalog 3 times a day with meals based on his scale. He has had no discoloration in the leg, pain, swelling, etc. He has never had a back problem. There is no history of any recent or remote trauma. He is NOT ALLERGIC TO ANY MEDICATION. He used to smoke, but he has quit. He is a nondrinker. PHYSICAL EXAMINATION: Blood pressure 116/60 with a pulse of 94, respirations of 35, and he is afebrile. GENERAL: He appeared to be tall, slightly pale and in poor health. Head, ears, eyes, nose, mouth and throat were normal. Neck veins are not distended. Thyroid is not enlarged. Chest is clear. Cardiac exam is normal. Abdomen is soft, nontender. EXTREMITIES: Normal. Right leg is normal and pulses are good. There is no edema. There is no venous insufficiency. Neurologically he is intact. IMPRESSION: 1. Numbness in the right leg, etiology unknown. 2. Uncontrolled diabetes, type 1. PLAN: 1. Bed rest. 2. Control diabetes. 3. Consider possible workup of the right leg if the dysesthesia does not respond in the next 24-48 hours. MMODL / IJN: [id number] /
--- NOTE | 2018-06-25 17:47 | PN ---
PROGRESS NOTE CHIEF COMPLAINT: Uncontrolled diabetes and numbness in the right leg. HISTORY OF PRESENT ILLNESS: This gentleman is doing better. Blood sugars are down, although they have been bouncing around and he back on a drip. He has had no further problems in the leg and the numbness is improving slightly. PHYSICAL EXAMINATION: Chest is clear. Cardiac exam is normal. The abdomen is soft and flat. Extremities are normal. Pulses are good and there is no edema. IMPRESSION: 1. Numbness in the right leg, etiology unknown. 2. Uncontrolled diabetes mellitus. PLAN: Continue efforts to control blood sugars and continue to monitor the neurologic progress of the right leg. MMODL / IJN: [id number] /
[2018-06-25 18:36] LABS: Glucose,Whole Blood 248 mg/dL (75-99)
[2018-06-25 20:37] LABS: Glucose,Whole Blood 179 mg/dL (75-99)
[2018-06-25] MEDS ORDERED: lamoTRIgine 25 MG TAB PO SCH (21:00)
[2018-06-25] MEDS ORDERED: traZODone HCL 100 MG TAB PO SCH (21:45)
[2018-06-25 23:01] LABS: Glucose,Whole Blood 129 mg/dL (75-99)
[2018-06-25 23:36] LABS: Glucose,Whole Blood 147 mg/dL (75-99)
[2018-06-26 00:10] LABS: Glucose,Whole Blood 195 mg/dL (75-99)
[2018-06-26 01:32] LABS: Glucose,Whole Blood 182 mg/dL (75-99)
[2018-06-26 03:26] LABS: Glucose,Whole Blood 109 mg/dL (75-99)
[2018-06-26 04:25] LABS: Glucose,Whole Blood 154 mg/dL (75-99)
[2018-06-26 05:44] LABS: Glucose,Whole Blood 173 mg/dL (75-99)
[2018-06-26 07:46] LABS: Glucose,Whole Blood 126 mg/dL (75-99)
[2018-06-26 07:48] VITALS: BP 134/89; PULSE 114; RESP 14; TEMP 97.4
[2018-06-26 08:49] LABS: Glucose,Whole Blood 262 mg/dL (75-99)
[2018-06-26] MEDS ORDERED: FLUoxetine HCL 20 MG CAP PO SCH (09:00)
[2018-06-26] MEDS ORDERED: buPROPion XL 300 MG TAB.ER.24H PO SCH (09:00)
[2018-06-26] MEDS: SODIUM CHLORIDE 0.9% 1,000 ML IV SCH (09:06)
[2018-06-26] MEDS: INSULIN ASPART 100 UNIT/ML 1 ML 10 ML VIAL SQ SCH ×2 (10:04→12:42)
[2018-06-26 10:52] LABS: Glucose,Whole Blood 237 mg/dL (75-99)
[2018-06-26 12:49] LABS: Glucose,Whole Blood 149 mg/dL (75-99)
--- NOTE | 2018-06-27 18:28 | DS ---
DISCHARGE SUMMARY CHIEF COMPLAINT: DKA. HISTORY OF PRESENT ILLNESS AND PHYSICAL EXAM: Details of this man's history and physical can be found in the initial workup. LABORATORY STUDIES: While he was in the hospital, he had laboratory studies, details of which can be found in the laboratory section of chart. COURSE IN HOSPITAL: After admission, he was placed on bedrest and started on intravenous fluids and IV insulin drip. Blood sugars were brought down. He complained of some circumferential numbness in the right lower extremity, but there was no etiology for this. He is doing well. It was felt he could be discharged to be followed up as an outpatient. FINAL DIAGNOSES: 1. Diabetic ketoacidosis. 2. Dysesthesias in the right lower extremity, etiology unknown. OPERATIONS: None. CONSULTATION: None. He is improved. MMODL / IJN: [id number] /
== END 2018-06-26 15:24 | disposition home or self-care (01) | DRG 639 ==
LOC: EC 15:06 → 3SCARD 18:43 → 4SSUR 22:21
PROVIDERS: ADMIT Family Medicine; ATTEND Family Medicine
DX: E10.10 Type 1 diabetes mellitus with ketoacidosis without coma (principal); R20.0 Anesthesia of skin; E10.43 Type 1 diabetes mellitus with diabetic autonomic (poly)neuropathy; K31.84 Gastroparesis; R00.0 Tachycardia, unspecified; Z79.4 Long term (current) use of insulin; Z82.49 Family history of ischemic heart disease and other diseases of the circulatory system; Z91.19 Patient's noncompliance with other medical treatment and regimen; Z87.891 Personal history of nicotine dependence; Z79.899 Other long term (current) drug therapy
CPT/HCPCS: 36415; 71046; 71275; 72100; 80051; 80053; 81003; 82009; 82565; 82803; 82947; 83036; 83605; 83735; 83880; 84100; 84484; 84520; 85025; 85379; 85610; 85652; 85730; 86140; 86850; 86900; 86901; 87040; 93005; 93970; 96361; 96365; 96366; 99285

== ENCOUNTER 2018-07-14 12:20 | Inpatient (IN) | payer OTHER ==
[2018-07-14] MEDS ORDERED: SODIUM CHLORIDE 0.9% 2,000 ML IV ONE (12:30)
[2018-07-14] MEDS: SODIUM CHLORIDE 0.9% 1,000 ML IV SCH ×3 (13:04→22:55)
[2018-07-14 13:11] LABS: Basophils # (A) 0.1 k/uL (0-0.2); Basophils % (A) 1 %; Eosinophils # (A) 0.2 k/uL (0-0.7); Eosinophils % (A) 2 %; HCT 52.2 % (39.0-53.0); HGB 17.8 gm/dL (13.0-17.5); Lymphocytes % (A) 27 %; MCH 31.1 pg (25.0-35.0); MCV 91.4 fL (80.0-100.0); Mean Platelet Volume 6.7; Monocytes # (A) 0.4 k/uL (0-1.0); Monocytes % (A) 6 %; Neutrophils # (A) 4.8 k/uL (1.3-7.7); Neutrophils % (A) 63 %; Platelet Count 285 k/uL (150-450); RBC 5.71 m/uL (4.30-5.90); RDW 12.5 % (11.5-15.5); WBC 7.7 k/uL (4.0-11.0)
[2018-07-14 13:16] LABS: Glucose,Whole Blood 409 mg/dL (75-99)
--- NOTE | 2018-07-14 13:22 | ED ---
General Adult HPI - General Chief complaint: Nausea/Vomiting/Diarrhea Stated complaint: Vomitting/weak Time Seen by Provider: 07/14/18 12:29 Source: patient, RN notes reviewed, old records reviewed Mode of arrival: ambulatory Limitations: no limitations - History of Present Illness Initial comments: Patient is a 22-year-old male with type 1 diabetes who presents emergency room today with chief complaint of suicidal thoughts, nausea vomiting. Patient states that he plans to harm himself and not taking his insulin anymore. Patient states that he does not see a counselor. He is depressed because he is unable to get an ICD and to be somewhat shortness on an independent. He states he doesn't have a job. Patient reports that he did have multiple episodes of vomiting yesterday. Concerns for initial DKA. - Related Data Home Medications Medication Instructions Recorded Confirmed INSULIN ASPART (NovoLOG) [NovoLOG 8 unit SQ AC-TID 07/14/18 07/14/18 (formulary)] Insulin Glargine [Lantus] 25 unit SQ HS 07/14/18 07/14/18 lamoTRIgine [LaMICtal] 50 mg PO HS 07/14/18 07/14/18 Previous Rx's Medication Instructions Recorded FLUoxetine HCL [PROzac] 60 mg PO DAILY 30 Days #90 cap 06/01/18 buPROPion XL [Wellbutrin XL] 300 mg PO DAILY 30 Days #30 06/01/18 tab.er.24h traZODone HCL [Desyrel] 200 mg PO HS 30 Days #90 tab 06/01/18 Allergies Allergy/AdvReac Type Severity Reaction Status Date / Time No Known Allergies Allergy Verified 07/14/18 12:56 Review of Systems ROS Statement: Those systems with pertinent positive or pertinent negative responses have been documented in the HPI. ROS Other: All systems not noted in ROS Statement are negative. Past Medical History Past Medical History: Diabetes Mellitus, Skin Disorder Additional Past Medical History / Comment(s): , insulin dependent diabetes oral motor apraxia; previous suicidal attempts anxiety/depression, previous hospital physicians for DKA,gastroparesis. History of Any Multi-Drug Resistant Organisms: None Reported Past Surgical History: Adenoidectomy Additional Past Surgical History / Comment(s): 2002 Past Anesthesia/Blood Transfusion Reactions: No Reported Reaction Past Psychological History: Anxiety, Depression Smoking Status: Never smoker Past Alcohol Use History: None Reported Past Drug Use History: Marijuana - Past Family History Mother Family Medical History: CVA/TIA Father Family Medical History: Hyperlipidemia, Hypertension Additional Family Medical History / Comment(s): . General Exam - General Exam Comments Initial Comments: This is a 22-year-old male. Alert and oriented 3. No significant distress. Limitations: no limitations General appearance: alert, in no apparent distress Head exam: Present: atraumatic, normocephalic, normal inspection Eye exam: Present: normal appearance, PERRL, EOMI. Absent: scleral icterus, conjunctival injection, periorbital swelling ENT exam: Present: normal exam, mucous membranes moist Neck exam: Present: normal inspection. Absent: tenderness, meningismus, lymphadenopathy Respiratory exam: Present: normal lung sounds bilaterally. Absent: respiratory distress, wheezes, rales, rhonchi, stridor Cardiovascular Exam: Present: regular rate, normal rhythm, normal heart sounds. Absent: systolic murmur, diastolic murmur, rubs, gallop, clicks GI/Abdominal exam: Present: soft, normal bowel sounds. Absent: distended, tenderness, guarding, rebound, rigid Back exam: Present: normal inspection Neurological exam: Present: alert, oriented X3, CN II-XII intact Psychiatric exam: Present: normal affect, depressed. Absent: normal mood Skin exam: Present: warm, dry, intact, normal color. Absent: rash Course Vital Signs 07/14/18 07/14/18 12:22 13:39 Temperature 98.0 F Pulse Rate 122 H 108 H Respiratory 20 18 Rate Blood Pressure 105/77 111/74 O2 Sat by Pulse 99 98 Oximetry Medical Decision Making - Medical Decision Making Patient is a 22 year old male presents for suicidal thoughts and possible DKA. Patient reports that he is suicidal because of unable to get a job and is struggling with not having independence. Patient states that he plans to harm himself by not taking his insulin. He states she's also had some vomiting episodes yesterday. This time patient's labwork is positive for acetone. His anion gap was 17. Blood sugar was 470. He was started on 2 L bolus. Given insulin bolus as well. Patient's blood sugar tends to come down rapidly after starting on an insulin drip. This until he repeat the second blood sugar after he is admitted. Patient will be admitted under suicide precautions with consult to psychiatry. Dr. Romero discussed case Dr. Valenzuela. - Lab Data Result diagrams: 07/14/18 12:52 07/14/18 12:52 Lab Results 07/14/18 07/14/18 07/14/18 Range/Units 12:41 12:52 12:52 WBC 7.7 (4.0-11.0) k/uL RBC 5.71 (4.30-5.90) m/uL Hgb 17.8 H (13.0-17.5) gm/dL Hct 52.2 (39.0-53.0) % MCV 91.4 (80.0-100.0) fL MCH 31.1 (25.0-35.0) pg MCHC 34.0 (31.0-37.0) g/dL RDW 12.5 (11.5-15.5) % Plt Count 285 (150-450) k/uL Neutrophils % 63 % Lymphocytes % 27 % Monocytes % 6 % Eosinophils % 2 % Basophils % 1 % Neutrophils # 4.8 (1.3-7.7) k/uL Lymphocytes # 2.0 (1.0-4.8) k/uL Monocytes # 0.4 (0-1.0) k/uL Eosinophils # 0.2 (0-0.7) k/uL Basophils # 0.1 (0-0.2) k/uL Sodium 132 L (137-145) mmol/L Potassium 5.3 H (3.5-5.1) mmol/L Chloride 90 L (98-107) mmol/L Carbon Dioxide 25 (22-30) mmol/L Anion Gap 17 mmol/L BUN 17 (9-20) mg/dL Creatinine 0.53 L (0.66-1.25) mg/dL Est GFR (CKD-EPI)AfAm >90 (>60 ml/min/1.73 sqM) Est GFR (CKD-EPI)NonAf >90 (>60 ml/min/1.73 sqM) Glucose 451 H (74-99) mg/dL POC Glucose (mg/dL) 409 H (75-99) mg/dL POC Glu Manager Hardware ID Salgat, Perla Calcium 10.1 (8.4-10.2) mg/dL Total Bilirubin 1.4 H (0.2-1.3) mg/dL AST 20 (17-59) U/L ALT 59 (21-72) U/L Alkaline Phosphatase 85 (38-126) U/L Total Protein 7.4 (6.3-8.2) g/dL Albumin 4.9 (3.5-5.0) g/dL Urine Color Urine Appearance (Clear) Urine pH (5.0-8.0) Ur Specific [place] (1.001-1.035) Urine Protein (Negative) Urine Glucose (UA) (Negative) Urine Blood (Negative) Urine Nitrite (Negative) Urine Bilirubin (Negative) Urine Urobilinogen (<2.0) mg/dL Ur Leukocyte Esterase (Negative) Urine RBC (0-5) /hpf Urine WBC (0-5) /hpf Hyaline Casts (0-2) /lpf Urine Mucus (None) /hpf Serum Alcohol <10 mg/dL Acetone, Qual Positive (Negative) 07/14/18 Range/Units 13:06 WBC (4.0-11.0) k/uL RBC (4.30-5.90) m/uL Hgb (13.0-17.5) gm/dL Hct (39.0-53.0) % MCV (80.0-100.0) fL MCH (25.0-35.0) pg MCHC (31.0-37.0) g/dL RDW (11.5-15.5) % Plt Count (150-450) k/uL Neutrophils % % Lymphocytes % % Monocytes % % Eosinophils % % Basophils % % Neutrophils # (1.3-7.7) k/uL Lymphocytes # (1.0-4.8) k/uL Monocytes # (0-1.0) k/uL Eosinophils # (0-0.7) k/uL Basophils # (0-0.2) k/uL Sodium (137-145) mmol/L Potassium (3.5-5.1) mmol/L Chloride (98-107) mmol/L Carbon Dioxide (22-30) mmol/L Anion Gap mmol/L BUN (9-20) mg/dL Creatinine (0.66-1.25) mg/dL Est GFR (CKD-EPI)AfAm (>60 ml/min/1.73 sqM) Est GFR (CKD-EPI)NonAf (>60 ml/min/1.73 sqM) Glucose (74-99) mg/dL POC Glucose (mg/dL) (75-99) mg/dL POC Glu Manager Hardware ID Calcium (8.4-10.2) mg/dL Total Bilirubin (0.2-1.3) mg/dL AST (17-59) U/L ALT (21-72) U/L Alkaline Phosphatase (38-126) U/L Total Protein (6.3-8.2) g/dL Albumin (3.5-5.0) g/dL Urine Color Yellow Urine Appearance Clear (Clear) Urine pH 5.5 (5.0-8.0) Ur Specific [place] 1.035 (1.001-1.035) Urine Protein 2+ H (Negative) Urine Glucose (UA) 4+ H (Negative) Urine Blood Negative (Negative) Urine Nitrite Negative (Negative) Urine Bilirubin Negative (Negative) Urine Urobilinogen <2.0 (<2.0) mg/dL Ur Leukocyte Esterase Negative (Negative) Urine RBC 1 (0-5) /hpf Urine WBC 1 (0-5) /hpf Hyaline Casts 4 H (0-2) /lpf Urine Mucus Rare H (None) /hpf Serum Alcohol mg/dL Acetone, Qual (Negative) Disposition Clinical Impression: DKA (diabetic ketoacidoses), Suicidal thoughts, Major depressive disorder, recurrent Disposition: ADMITTED IP TO THIS [facility] Condition: Stable Is patient prescribed a controlled substance at d/c from ED?: No Referrals: Brown Valenzuela MD [Primary Care Provider] - 1-2 days Time of Disposition: 14:23
[2018-07-14 13:25] LABS: ALT 59 U/L (21-72); AST 20 U/L (17-59); Albumin 4.9 g/dL (3.5-5.0); Alcohol <10 mg/dL; Alkaline Phosphatase 85 U/L (38-126); Anion Gap 17 mmol/L; Blood Urea Nitrogen 17 mg/dL (9-20); Calcium 10.1 mg/dL (8.4-10.2); Carbon Dioxide 25 mmol/L (22-30); Chloride 90 mmol/L (98-107); Glucose 451 mg/dL (74-99); Potassium 5.3 mmol/L (3.5-5.1); Sodium 132 mmol/L (137-145); Total Bilirubin 1.4 mg/dL (0.2-1.3); Total Protein 7.4 g/dL (6.3-8.2)
[2018-07-14] MEDS ORDERED: INSULIN REGULAR BOLUS (FROM DRIP BAG) IV ONE (13:31)
[2018-07-14] MEDS ORDERED: INSULIN REGULAR 100 UNIT in SODIUM CHLORIDE 0.9% 100 ML IV SCH (14:00)
[2018-07-14 14:21] LABS: Appearance,Urine Clear (Clear); Bilirubin,Urine Negative (Negative); Blood,Urine Negative (Negative); Color,Urine Yellow; Glucose,Urine (UA) 4+ (Negative); Hyaline Casts,Urine 4 /lpf (0-2); Leukocyte Esterase,Urine Negative (Negative); Mucus,Urine Rare /hpf; Nitrite,Urine Negative (Negative); PH, Urine 5.5 (5.0-8.0); Protein,Urine 2+ (Negative); RBC,Urine 1 /hpf (0-5); Specific Gravity,Urine 1.035 (1.001-1.035); Urobilinogen,Urine <2.0 mg/dL (<2.0); WBC,Urine 1 /hpf (0-5)
[2018-07-14 14:26] LABS: Amphetamine Screen,Urine Not Detected (NotDetected); Barbiturate Screen,Urine Not Detected (NotDetected); Benzodiazepines Screen,Urine Not Detected (NotDetected); Cocaine Screen,Urine Not Detected (NotDetected); Methadone Screen, Urine Not Detected (NotDetected); Opiate Screen,Urine Not Detected (NotDetected); Oxycodone Screen, Urine Not Detected (NotDetected); Phencyclidine Screen,Urine Not Detected (NotDetected); Tricyclic Antidepressant,Urine Not Detected (NotDetected); Urn Cannabinoid Scrn Detected (NotDetected)
[2018-07-14 14:27] LABS: Ketones,Urine 3+ (Negative)
[2018-07-14 15:01] LABS: Glucose,Whole Blood 391 mg/dL (75-99)
[2018-07-14 15:19] LABS: Glucose,Whole Blood 368 mg/dL (75-99)
[2018-07-14 16:49] LABS: Glucose,Whole Blood 269 mg/dL (75-99)
[2018-07-14 17:08] LABS: Glucose,Whole Blood 255 mg/dL (75-99)
[2018-07-14] MEDS ORDERED: D5-0.45% NACL WITH KCL 20MEQ/L 1,000 ML IV SCH (18:00)
[2018-07-14 18:07] LABS: Glucose,Whole Blood 176 mg/dL (75-99)
[2018-07-14 18:23] LABS: ALT 48 U/L (21-72); AST 15 U/L (17-59); Albumin 3.6 g/dL (3.5-5.0); Alkaline Phosphatase 60 U/L (38-126); Anion Gap 7 mmol/L; Blood Urea Nitrogen 14 mg/dL (9-20); Calcium 8.8 mg/dL (8.4-10.2); Carbon Dioxide 30 mmol/L (22-30); Chloride 98 mmol/L (98-107); Glucose 164 mg/dL (74-99); Potassium 3.8 mmol/L (3.5-5.1); Sodium 135 mmol/L (137-145); Total Bilirubin 0.7 mg/dL (0.2-1.3); Total Protein 6.1 g/dL (6.3-8.2)
[2018-07-14 19:33] LABS: Glucose,Whole Blood 115 mg/dL (75-99)
[2018-07-14 21:31] LABS: Hemoglobin A1C 11.5 % (4.0-6.0)
[2018-07-14] MEDS: lamoTRIgine 25 MG TAB PO SCH (23:17)
[2018-07-14] MEDS: traZODone HCL 100 MG TAB PO SCH (23:18)
[2018-07-14] MEDS: INSULIN ASPART (NovoLOG) 100 UNIT/ML VIAL SQ SCH (23:21)
[2018-07-14 23:22] LABS: Glucose,Whole Blood 256 mg/dL (75-99)
[2018-07-15 07:26] LABS: Glucose,Whole Blood 309 mg/dL (75-99)
[2018-07-15] MEDS: FLUoxetine HCL 20 MG CAP PO SCH (08:13)
[2018-07-15] MEDS: INSULIN ASPART (NovoLOG) 100 UNIT/ML VIAL SQ SCH ×7 (08:14→21:33)
[2018-07-15 08:22] LABS: Basophils % (A) 0 %; Eosinophils # (A) 0.1 k/uL (0-0.7); Eosinophils % (A) 2 %; HCT 46.4 % (39.0-53.0); HGB 15.7 gm/dL (13.0-17.5); Lymphocytes # (A) 2.4 k/uL (1.0-4.8); Lymphocytes % (A) 37 %; MCH 31.3 pg (25.0-35.0); MCHC 33.9 g/dL (31.0-37.0); MCV 92.4 fL (80.0-100.0); Mean Platelet Volume 6.5; Monocytes # (A) 0.4 k/uL (0-1.0); Monocytes % (A) 6 %; Neutrophils # (A) 3.4 k/uL (1.3-7.7); Neutrophils % (A) 53 %; Platelet Count 268 k/uL (150-450); RBC 5.02 m/uL (4.30-5.90); RDW 12.6 % (11.5-15.5); WBC 6.4 k/uL (4.0-11.0)
[2018-07-15 08:29] LABS: ALT 56 U/L (21-72); AST 20 U/L (17-59); Alkaline Phosphatase 75 U/L (38-126); Anion Gap 12 mmol/L; Blood Urea Nitrogen 13 mg/dL (9-20); Carbon Dioxide 27 mmol/L (22-30); Chloride 96 mmol/L (98-107); Glucose 316 mg/dL (74-99); Phosphorus 3.8 mg/dL (2.5-4.5); Potassium 4.9 mmol/L (3.5-5.1); Sodium 135 mmol/L (137-145); Total Bilirubin 0.9 mg/dL (0.2-1.3); Total Protein 6.3 g/dL (6.3-8.2)
[2018-07-15] MEDS: buPROPion XL 300 MG TAB.ER.24H PO SCH (08:58)
[2018-07-15 11:45] LABS: Glucose,Whole Blood 341 mg/dL (75-99)
[2018-07-15 13:11] VITALS: BMI 15.1
--- NOTE | 2018-07-15 14:26 | HP ---
HISTORY AND PHYSICAL CHIEF COMPLAINT: Uncontrolled diabetes. HISTORY OF PRESENT ILLNESS: This is another admission for this 22-year-old type 1 juvenile onset diabetic, who does not take care of himself. He apparently had some nausea and vomiting several days ago. He thought he should stop taking insulin and his blood sugars started to rise. He came to the emergency room with a blood sugar over 500. He also apparently has been depressed and has expressed this same along with some suicidal statements. REVIEW OF SYSTEMS: He has had no headaches, neurologic problems, cough, hemoptysis, sputum production, shortness of breath, chest pain, abdominal pain, hematemesis, melena, jaundice, renal failure, etc. Past medical history, family history, personal and social histories can all be found in his recent admitting and discharge summaries. PHYSICAL EXAMINATION: Blood pressure is 122/64 with a pulse of 96, respirations of 34, and he is afebrile. In general, appeared to be slender and in no acute distress. He was dry. Head, ears, eyes, nose, mouth, and throat were normal except for dry mucous membranes. Neck veins are not distended. Chest is clear, there are no rales or rhonchi. The cardiac exam demonstrates sinus tachycardia. No murmurs or extra sounds. Abdomen is flat, soft, nontender with normal bowel sounds. Extremities are normal. Neurologically, he is intact. He is admitted to the hospital with diagnoses: 1. Uncontrolled type 1 juvenile onset diabetes mellitus. 2. Dehydration. 3. Major depression. PLAN: 1. Bed rest. 2. IV fluids. 3. Control diabetes before discharge. 4. Suicide precautions. 5. Psych consult. MMODL / IJN: [id number] /
--- NOTE | 2018-07-15 14:31 | PN ---
PROGRESS NOTE DATE OF SERVICE: 07/15/2018 CHIEF COMPLAINT: Uncontrolled diabetes and depression. HISTORY OF PRESENT ILLNESS: This gentleman is doing well and sugars are down. He will be seen by Psychiatry. He verbalizes that he is down and very depressed about his situation. He apparently lives at home and does not do anything and feels very unproductive and unworthy. MMODL / IJN: [id number] /
--- NOTE | 2018-07-15 15:01 | P.CN ---
Psychiatric Consult - . Consult date: 07/22/18 Consult:: 07/15/18 13:31 Suicidal ideation Assessment and Plan Assessment: Patient is a 22-year-old male with type 1 diabetes who presents emergency room today with chief complaint of suicidal thoughts, nausea vomiting. Patient states that he plans to harm himself and not taking his insulin anymore. Patient states that he does not see a counselor. He is depressed because he is unable to get an ICD and to be somewhat shortness on an independent. He states he doesn't have a job. Patient reports that he did have multiple episodes of vomiting yesterday. Concerns for initial DKA. - Related Data Home Medications Medication Instructions Recorded Confirmed INSULIN ASPART (NovoLOG) [NovoLOG 8 unit SQ AC-TID 07/14/18 07/14/18 (formulary)] Insulin Glargine [Lantus] 25 unit SQ HS 07/14/18 07/14/18 lamoTRIgine [LaMICtal] 50 mg PO HS 07/14/18 07/14/18 Previous Rx's Medication Instructions Recorded FLUoxetine HCL [PROzac] 60 mg PO DAILY 30 Days #90 cap 06/01/18 buPROPion XL [Wellbutrin XL] 300 mg PO DAILY 30 Days #30 06/01/18 tab.er.24h traZODone HCL [Desyrel] 200 mg PO HS 30 Days #90 tab 06/01/18 Allergies Allergy/AdvReac Type Severity Reaction Status Date / Time No Known Allergies Allergy Verified 07/14/18 12:56 Past Medical History Past Medical History: Diabetes Mellitus, Skin Disorder Additional Past Medical History / Comment(s): , insulin dependent diabetes oral motor apraxia; previous suicidal attempts anxiety/depression, previous hospital physicians for DKA,gastroparesis. History of Any Multi-Drug Resistant Organisms: None Reported Past Surgical History: Adenoidectomy Additional Past Surgical History / Comment(s): 2002 Past Anesthesia/Blood Transfusion Reactions: No Reported Reaction Past Psychological History: Anxiety, Depression Smoking Status: Never smoker Past Alcohol Use History: None Reported Past Drug Use History: Marijuana - Past Family History Mother Family Medical History: CVA/TIA Father Family Medical History: Hyperlipidemia, Hypertension Additional Family Medical History / Comment(s): . PAST PSYCHIATRIC HISTORY: Previous hospitalization at [facility] following a suicide attempt by overdosing on insulin. Also, admitted to [facility] with last admission in February 2017; treated with Prozac and Wellbutrin XL. However, pt did not f/u with outpatient psychiatric services and was discharged from [address] [place] [address] on 05/09/2017 with below medications. Discharge Medication List at the time of discharge was covered his medications and he stated due to his insurance Levimere is not covered we discussed that he has to do close monitoring of his blood sugars since he is a brittle diabetic FLUoxetine HCL [PROzac] 60 mg PO DAILY Insulin Aspart [NovoLOG (formulary)] 8 unit SQ AC-TID Insulin Glargine [Lantus] 25 unit SQ HS 30 Days buPROPion XL [Wellbutrin XL] 300 mg PO DAILY 30 Days lamoTRIgine [LaMICtal] 50 mg PO 2100 30 Days traZODone HCL [Desyrel] 200 mg PO HS 30 Days Mental Status Examination - this is a 22-year-old male who lives with his father who stated he's not been able to get follow-up care due to the [facility] not giving him an ID due to the fact he does not have a student ID nor can he get transcripts from the school that he attended. He states he would take his medication if he had ID could be serviced by [facility]. His mother is not in his life who lives with a roommate. His father is at home and he does not know how he got to the hospital today. General Appearance: [disheveled, appears stated age] Speech/Language: [slow,hesitant, soft, ] Attitude/Behavior: [withdrawn, indifferent] Mood: [depressed 8 out of 10, anxious 10 out of 10, hopelessness] Affect: [ flat, blunted constricted] Orientation: [Not oriented to time, but is person, place situation] Thought Content: [wnl Risk Factors: [He has had thoughts in the past but this was not a suicide attempt today denies suicidal (ideations, plan), and/or Homicidal (ideations, plan) Perception: [wnl, denies hallucinations (auditory, visual, tactile), other] Thought Processes: [goal-oriented he wants help and cannot get up from the [facility] to get an ID for him so that he can have follow-up care at [facility]. He has not been on any medications due to the fact he cannot have an ID Concentration/Attention Span: [impaired] [Per observation and interview with the patient] Recent Memory: [wnl Remote Memory: [wnl] [past events, as related history] Intelligence: [below average] [based on history, based on vocabulary, syntax, grammar, and content] Judgement: [poor] [per patient's behavior/history of present illness] Insight: [poor] [understanding severity of illness/history of present illness] Psychiatric impression: major depressive disorder-severe Psychiatric recommendations: TRANSFER WHEN MEDICALLY STABLE TO PSYCH UNIT VOLUNTARY Thank you for the consult William Thomson (1) Major depressive disorder, recurrent Current Visit: Yes Status: Chronic Priority: Low Code(s): F33.9 - MAJOR DEPRESSIVE DISORDER, RECURRENT, UNSPECIFIED SNOMED Code(s): 40354451 Time with Patient: Less than 30
[2018-07-15 15:20] LABS: VBG PH 7.39 (7.31-7.41)
[2018-07-15 17:13] LABS: Glucose,Whole Blood 228 mg/dL (75-99)
[2018-07-15 20:37] LABS: Glucose,Whole Blood 262 mg/dL (75-99)
[2018-07-15] MEDS ORDERED: INSULIN DETEMIR (LEVEMIR) 100 UNIT/ML SYR SQ SCH (21:00)
[2018-07-15] MEDS: lamoTRIgine 25 MG TAB PO SCH (21:33)
[2018-07-15] MEDS: traZODone HCL 100 MG TAB PO SCH (22:36)
[2018-07-15 23:37] VITALS: RESP 16
[2018-07-16 06:29] VITALS: BP 116/72; PULSE 112; TEMP 98.2
[2018-07-16 07:13] LABS: Glucose,Whole Blood 221 mg/dL (75-99)
[2018-07-16] MEDS: FLUoxetine HCL 20 MG CAP PO SCH (08:01)
[2018-07-16] MEDS: INSULIN ASPART (NovoLOG) 100 UNIT/ML VIAL SQ SCH ×3 (08:02→12:23)
[2018-07-16] MEDS: buPROPion XL 300 MG TAB.ER.24H PO SCH (08:02)
[2018-07-16 12:17] LABS: Glucose,Whole Blood 167 mg/dL (75-99)
[2018-07-16] MEDS ORDERED: INSULIN ASPART (NovoLOG) 100 UNIT/ML VIAL SQ SCH (12:30)
--- NOTE | 2018-07-16 14:48 | DS ---
DISCHARGE SUMMARY CHIEF COMPLAINT: Uncontrolled diabetes and depression. HISTORY OF PRESENT ILLNESS AND PHYSICAL EXAM: The details of this man's history and physical can be found in the initial workup. LABORATORY STUDIES: While he was in a hospital, he had laboratory studies, details of which can be found in the laboratory section of his chart. COURSE IN HOSPITAL: After admission, he is post bedrest and started on intravenous fluids and suicide precautions. He was placed on insulin drip and blood sugars came down. He switched over to basal bolus program and sugars were under fairly good control. He was seen by Psychiatry and felt that he should be treated as an inpatient in the psych unit and arrangements will be made for him to go there on 07/16. FINAL DIAGNOSES: 1. Uncontrolled type 1 insulin-dependent diabetes mellitus. 2. Major depression. OPERATIONS: None. CONSULTATIONS: Psychiatry. He is improved. GRACE / ALDEN: [id number] /
[2018-07-16] MEDS ORDERED: INSULIN DETEMIR (LEVEMIR) 100 UNIT/ML SYR SQ SCH (21:00)
--- NOTE | 2018-07-17 13:32 | CDI ---
Documentation Clarification Form Date: 07/17/18 From: Bella Crowell Phone: If you have a question regarding this query, please contact Dianna Ontiveros at [phone] between 8am and 5pm. Admit Date: 07/14/2018 2:23:00 PM Patient Name: Raul Marquez Visit Number: [id number] Discharge Date: 07/16/2018 1:44:00 PM ATTENTION: The Clinical Documentation Specialists (CDI) and [facility] Coding Staff appreciate your assistance in clarifying documentation. Please respond to the clarification below the line at the bottom and electronically sign. The CDI & [facility] Coding staff will review the response and follow-up if needed. Please note: Queries are made part of the Legal Health Record. If you have any questions, please contact the author of this message via ITS. Dr. Brown Valenzuela The patient has type I diabetes, as indicated in the ED note, H&P, consult note and progress notes. Your documentation states that the patient's diabetes was uncontrolled and patient does not take care of himself. History/Risk Factors: Patient admitted with nausea, vomiting and diarrhea and elevated blood sugars. Clinical Indicators: Elevated blood sugars Lab: Glucose: 451, 164 and 316. POC Glucose: 115 - 409 Treatment: Insulin drip then switched over to bolus program and sugars were under fairly good control. In order to capture the severity of Illness and necessary documentation specificity, please clarify how the diabetes was uncontrolled? Ketoacidosis Hypoglycemia with or without coma Hyperglycemia Hyperosmolarity Other condition MTDD
--- NOTE | 2018-07-21 11:20 | MISC ---
MISCELLANOUS REPORT QUERY How was it uncontrolled? Hyperglycemia. MMODL / IJN: [id number] /
== END 2018-07-16 13:44 | DRG 638 ==
LOC: EC 12:20 → 3SCARD 14:23 → 4MS4W 21:13
PROVIDERS: ADMIT Family Medicine; ATTEND Family Medicine
DX: E10.65 Type 1 diabetes mellitus with hyperglycemia (principal); F33.9 Major depressive disorder, recurrent, unspecified; R45.851 Suicidal ideations; E10.43 Type 1 diabetes mellitus with diabetic autonomic (poly)neuropathy; K31.84 Gastroparesis; F41.9 Anxiety disorder, unspecified; R19.7 Diarrhea, unspecified; E86.0 Dehydration; Z79.4 Long term (current) use of insulin; Z79.899 Other long term (current) drug therapy; Z82.49 Family history of ischemic heart disease and other diseases of the circulatory system
CPT/HCPCS: 36415; 80053; 80306; 80320; 81001; 82009; 82803; 83036; 84100; 85025; 96361; 96365; 96366; 99285

== ENCOUNTER 2018-07-16 13:38 | Inpatient (IN) | payer MEDICAID ==
[2018-07-16] MEDS ORDERED: ACETAMINOPHEN TAB 325 MG TAB PO PRN (14:03)
[2018-07-16] MEDS ORDERED: ZIPRASIDONE 20 MG VIAL IM PRN (14:03)
[2018-07-16] MEDS ORDERED: MAGNESIUM HYDROXIDE 2,400 MG/10 ML CUP PO PRN (14:03)
[2018-07-16] MEDS ORDERED: MAG HYDROX/AL HYDROX/SIMETH 30 ML CUP PO PRN (14:03)
[2018-07-16 17:38] LABS: Glucose,Whole Blood 135 mg/dL (75-99)
[2018-07-16] MEDS: INSULIN ASPART (NovoLOG) 100 UNIT/ML VIAL SQ SCH ×3 (17:48→20:35)
[2018-07-16 20:22] LABS: Glucose,Whole Blood 147 mg/dL (75-99)
[2018-07-16] MEDS: INSULIN DETEMIR (LEVEMIR) 100 UNIT/ML SYR SQ SCH (20:36)
[2018-07-16] MEDS: lamoTRIgine 25 MG TAB PO SCH (21:01)
[2018-07-16] MEDS: traZODone HCL 100 MG TAB PO SCH (21:53)
[2018-07-17 03:19] LABS: Glucose,Whole Blood 211 mg/dL (75-99)
--- NOTE | 2018-07-17 05:54 | CONS ---
CONSULTATION I am covering for Dr. Valenzuela. REASON FOR CONSULTATION: Advice regarding diabetes mellitus and other medical issues requested by Psychiatry. HISTORY OF PRESENT ILLNESS: This 22-year-old gentleman with a past medical history of multiple medical problems of diabetes mellitus, history of noncompliance, depression, admitted to inpatient psych. Patient had multiple episodes of DKA. Patient also complained of loss of weight and as well as peripheral neuropathy. The patient apparently also. There is no history of any fever, rigors or chills. No history of headache, loss of consciousness, seizures. PAST MEDICAL HISTORY: History of diabetes, history of skin disorder, history of DKA, gastroparesis, anxiety, depression. MEDICATIONS: Medications are: 1. Desyrel 200 mg q.h.s. 2. Lamictal 50 mg q.h.s. 3. Wellbutrin XL 100 mg daily. 4. Levemir 30 units subcu q.h.s. 5. NovoLog 10 units a.c. and at bedtime and t.i.d. 6. Prozac 60 mg daily. ALLERGIES: Allergies are none. FAMILY HISTORY: History of CVA, TIA in the family. SOCIAL HISTORY: History of THC use. Previous history of smoking. REVIEW OF SYSTEMS: ENT: No diminished hearing or diminished vision. CARDIOVASCULAR SYSTEM: No angina. RESPIRATORY SYSTEM: No cough. GI: No nausea. : No dysuria. NERVOUS SYSTEM: As mentioned earlier. ALLERGY/IMMUNOLOGY: No history of asthma. MUSCULOSKELETAL: As mentioned earlier. HEMATOLOGY/ONCOLOGY: No history of anemia. ENDOCRINE: Diabetes mellitus type 1. CONSTITUTIONAL: As mentioned earlier. DERMATOLOGY: Negative. RHEUMATOLOGY: Negative. PSYCHIATRY: As mentioned earlier. PHYSICAL EXAMINATION: The patient is alert and oriented x3. Pulse is 124, blood pressure 92/74, respiration 18, temperature 97.5, pulse ox normal. HEENT: Conjunctivae normal. Oral mucosa moist. Neck is no jugular venous distention. No carotid bruit. No lymph node enlargement. CARDIOVASCULAR: S1, S2 muffled. No S3, no S4. Tachycardic mild. RESPIRATORY: Breath sounds diminished at the bases. No rhonchi, no crackles. ABDOMEN: Soft, nontender. No mass palpable. LEGS: No edema, no swelling. NERVOUS SYSTEM: Higher function as mentioned. Moves all 4 limbs. No focal deficits. LYMPHATICS: No lymphadenopathy of the neck, axillae or groin. SKIN: No ulcer, rash or bleeding. LABS: Recent labs from the floor. CBC reviewed. Coags are normal. Chemistry shows sodium 135. Glucose noted. Hemoglobin is 11.5. The urine noted and the drug screen was showing marijuana. ASSESSMENT: 1. Diabetes mellitus type 1, uncontrolled. 2. History of previous multiple diabetic ketoacidosis and noncompliance. 3. Possible peripheral neuropathy. 4. Body mass index 15.3 with moderate to severe protein calorie malnutrition. 5. History of diabetic ketoacidosis. 6. History of gastroparesis. 7. Anxiety, depression. 8. History of THC. 9. Remote history of nicotine dependence. RECOMMENDATIONS AND DISCUSSION: This is a 22-year-old gentleman who presented with multiple complex medical issues. At this time I recommend to continue current medication, continue symptomatic treatment. Resume the home medications. Accu-Cheks a.c. and at bedtime and adjust to scale. I would also recommend dietary consultation for evaluation of the weight loss and regimen. Importance of compliance was stressed. Traffic Technician to evaluate the home situation. We will follow the patient closely with you and the patient may be asked to follow up with Dr. Valenzuela closely after discharge. Thank you for letting us participate in this patient. MMODL / IJN: [id number] / MAURICIO
[2018-07-17] MEDS: INSULIN ASPART (NovoLOG) 100 UNIT/ML VIAL SQ SCH ×7 (07:49→20:51)
[2018-07-17] MEDS: FLUoxetine HCL 20 MG CAP PO SCH (07:50)
[2018-07-17] MEDS: buPROPion XL 300 MG TAB.ER.24H PO SCH (07:51)
[2018-07-17 08:46] VITALS: BMI 15.3
[2018-07-17] MEDS: MULTIVITAMINS, THERA 1 EACH TAB PO SCH (12:02)
[2018-07-17] MEDS: THIAMINE 100 MG TAB PO SCH (12:02)
[2018-07-17] MEDS: FOLIC ACID 1 MG TAB PO SCH (12:02)
[2018-07-17 12:05] LABS: Glucose,Whole Blood 137 mg/dL (75-99)
[2018-07-17 12:35] LABS: Glucose,Whole Blood 159 mg/dL (75-99)
--- NOTE | 2018-07-17 12:57 | P.HP ---
Psychiatric H&P - . H&P Date: 07/17/18 History & Physical: Allergies Allergy/AdvReac Type Severity Reaction Status Date / Time No Known Allergies Allergy Verified 07/16/18 14:26 Vital Signs Temp 97.6 F 07/17/18 06:46 Pulse 97 07/17/18 06:46 Resp 16 07/17/18 06:46 BP 116/74 07/17/18 06:46 Pulse Ox Intake & Output 07/16/18 07/17/18 07/17/18 18:59 06:59 18:59 Weight 55.5 kg 55.5 kg Laboratory Last Values POC Glucose (mg/dL) 211 mg/dL (75-99) H 07/17/18 03:14 POC Glu [employer] ID Clementina Mane 07/17/18 03:14 Assessment and Plan Assessment: This is a 22-year-old male with history of type 1 diabetes with multiple episodes of DKA who was recently hospitalized for the same. The patient presents to the emergency department today because of right lower extremity numbness, weakness, and pain. He states that he woke up approximately one hour prior to arrival and noticed that his right lower extremity was tingling and felt like pins and needles. He stated that he tried to stand up andit was very weak and he fell to his left side. He denies any head injury. No lower back injury. He states he did not injure the leg with the fall and that occur prior to the fall. He states the last time he noticed that the leg was normal was around 6 or 6:30 this morning when he got up to get a glass of water. The patient claims that he's been using his insulin as prescribed. He states he's been checking his sugars at home and they have been normal area denies any chest pain or trouble breathing. No cough. No fevers or chills. No nausea, vomiting, or diarrhea. Denies dysuria or hematuria. Again he denies any back pain. He states that he has not had anything like this previously. He states that the pain seems to be more intense over the knee and is worse with moving the lower extremity. The patient called an ambulance when he notices symptoms and came to the emergency department. EMS noted that his sugar was in the 300s and he was tachycardic. He denies any other acute complaints. Currently states that he does not want any pain medications. PAST PSYCHIATRIC HISTORY: Previous hospitalization at [facility] following a suicide attempt by overdosing on insulin. Also, admitted to [facility] three with last admission in February 2017; treated with Prozac and Wellbutrin XL. However, pt did not f/u with outpatient psychiatric services and was discharged from [address] [place] [address] on 05/09/2017 with below medications. It is obvious that she has not followed up in [facility]. Discharge Medication List FLUoxetine HCL [PROzac] 40 mg PO DAILY #30 cap 05/09/17 [Rx] Insulin Aspart [NovoLOG (formulary)] 6 unit SQ AC-TID #1 vial 05/09/17 [Rx] Insulin Detemir [Levemir] 18 unit SQ DAILY #1 syr 05/09/17 [Rx] buPROPion XL [Wellbutrin XL] 300 mg PO DAILY #30 tab.er.24h 05/09/17 [Rx] hydrOXYzine PAMOATE [Vistaril] 25 mg PO TID PRN #90 cap 05/09/17 [Rx] traZODone HCL [Desyrel] 200 mg PO HS #30 tab 05/09/17 [Rx] Home Medications Medication Instructions Recorded Confirmed Insulin Glargine [Lantus] 25 unit SQ HS 09/25/17 03/08/18 traZODone HCL 150 mg PO HS 10/17/17 03/08/18 Insulin Aspart [NovoLOG See Protocol SQ AC-TID 03/08/18 03/08/18 (formulary)] Previous Rx's Medication Instructions Recorded Erythromycin Ophth Oint [Romycin 1 applic LEFT EYE QID 7 Days #1 04/07/18 Ophth Oint] tube Allergies Allergy/AdvReac Type Severity Reaction Status Date / Time No Known Allergies Allergy Verified 04/07/18 11:19 Past Medical History Past Medical History: Asthma, Diabetes Mellitus, Skin Disorder Additional Past Medical History / Comment(s): , insulin dependent diabetes oral motor apraxia;. psoriasis, previous suicidal attempts anxiety/depression, previous hospital physicians for DKA,gastroparesis. History of Any Multi-Drug Resistant Organisms: None Reported Past Surgical History: Adenoidectomy Additional Past Surgical History / Comment(s): 2002 Past Anesthesia/Blood Transfusion Reactions: No Reported Reaction Past Psychological History: Anxiety, Depression Smoking Status: Former smoker Past Alcohol Use History: None Reported Past Drug Use History: None Reported - Past Family History Mother Family Medical History: CVA/TIA Father Family Medical History: Hyperlipidemia, Hypertension Additional Family Medical History / Comment(s): . Mental Status Examination - this is a 22-year-old male who lives with his father who stated he's not been able to get follow-up care due to the [facility] not giving him an ID due to the fact he does not have a student ID nor can he get transcripts from the school that he attended. He states he would take his medication if he had ID could be serviced by [facility]. His mother is not in his life who lives with a roommate. His father is at home and he does not know how he got to the hospital today. General Appearance: [disheveled, appears stated age] Speech/Language: [slow,hesitant, soft, ] Attitude/Behavior: [withdrawn, indifferent] Mood: [depressed 8 out of 10, anxious 10 out of 10, hopelessness] Affect: [ flat, blunted constricted] Orientation: [Not oriented to time, but is person, place situation] Thought Content: [wnl Risk Factors: [He has had thoughts in the past but this was not a suicide attempt today denies suicidal (ideations, plan), and/or Homicidal (ideations, plan) Perception: [wnl, denies hallucinations (auditory, visual, tactile), other] Thought Processes: [goal-oriented he wants help and cannot get up from the [facility] to get an ID for him so that he can have follow-up care at [facility]. He has not been on any medications due to the fact he cannot have an ID Concentration/Attention Span: [impaired] [Per observation and interview with the patient] Recent Memory: [wnl Remote Memory: [wnl] [past events, as related history] Intelligence: [below average] [based on history, based on vocabulary, syntax, grammar, and content] Judgement: [poor] [per patient's behavior/history of present illness] Insight: [poor] [understanding severity of illness/history of present illness] Psychiatric impression: Major depressive disorder recurrent severe in nature and diabetes. Patient Strengths - Housing stability: [x] Able to vocalize needs: [x] Motivation, determination, readiness for change: [x] Patient Limitations: [medication, non-compliance, pathological/unsupported environment, intellectual impairment, complicated medical illness, lack of social supports] Initial Plan of Care: [] Estimated Length of Stay: [5 days] Initial Discharge Plan: [home, [facility], Prognosis: [guarded] Justification for Inpatient Hospitalization - [anxiety, depression resulting in significant loss of functioning.] [Dangerous to self with need for controlled environment.] [Emotional or behavioral conditions and complications requiring 24 hour medical and nursing care.] [Need for special drug therapy, or other therapeutic program requiring continuous hospitalization.] [Failure of social or occupational functioning.] [Inability to meet basic life and health needs.] (1) MDD (major depressive disorder), recurrent episode, moderate Current Visit: No Status: Acute Priority: High Code(s): F33.1 - MAJOR DEPRESSIVE DISORDER, RECURRENT, MODERATE SNOMED Code(s): 776047212 Time with Patient: Less than 30
[2018-07-17 16:46] LABS: Glucose,Whole Blood 184 mg/dL (75-99)
[2018-07-17 17:38] LABS: Glucose,Whole Blood 199 mg/dL (75-99)
[2018-07-17 20:02] LABS: Glucose,Whole Blood 212 mg/dL (75-99)
[2018-07-17] MEDS: INSULIN DETEMIR (LEVEMIR) 100 UNIT/ML SYR SQ SCH (20:52)
[2018-07-17] MEDS: traZODone HCL 100 MG TAB PO SCH (21:26)
[2018-07-17] MEDS: lamoTRIgine 25 MG TAB PO SCH (21:26)
[2018-07-17] MEDS ORDERED: LOPERAMIDE 2 MG CAP PO PRN (21:51)
[2018-07-18 02:49] LABS: Glucose,Whole Blood 171 mg/dL (75-99)
[2018-07-18 06:30] LABS: Glucose,Whole Blood 100 mg/dL (75-99)
[2018-07-18] MEDS: INSULIN ASPART (NovoLOG) 100 UNIT/ML VIAL SQ SCH ×7 (06:41→20:15)
[2018-07-18] MEDS: FLUoxetine HCL 20 MG CAP PO SCH (08:47)
[2018-07-18] MEDS: buPROPion XL 300 MG TAB.ER.24H PO SCH (08:47)
--- NOTE | 2018-07-18 11:40 | P.PN ---
Subjective Progress Note Date: 07/18/18 Principal diagnosis: Major depressive disorder recurrent severe in nature and diabetes. 07/18/2018: Chart reviewed, discussed with nursing and interview of patient. Today he is going to groups, taking his medication, still feels depressed hopelessness and helpless and overwhelmed. He still states he needs help to get his identification which she can't get his father or mother to help him. Objective - Vital Signs Vital signs: Vital Signs Temp 97.4 F L 07/18/18 06:38 Pulse 107 H 07/18/18 06:38 Resp 16 07/18/18 06:38 BP 108/75 07/18/18 06:38 Pulse Ox Intake & Output 07/17/18 07/18/18 07/18/18 18:59 06:59 18:59 Weight 55.5 kg - Labs Labs: Abnormal Lab Results - Last 24 Hours (Table) 07/17/18 07/17/18 07/17/18 Range/Units 06:34 12:32 16:45 POC Glucose (mg/dL) 137 H 159 H 184 H (75-99) mg/dL 07/17/18 07/17/18 07/18/18 Range/Units 17:31 19:48 02:47 POC Glucose (mg/dL) 199 H 212 H 171 H (75-99) mg/dL 07/18/18 Range/Units 06:29 POC Glucose (mg/dL) 100 H (75-99) mg/dL Assessment and Plan Assessment: This is a 22-year-old male with history of type 1 diabetes with multiple episodes of DKA who was recently hospitalized for the same. The patient presents to the emergency department today because of right lower extremity numbness, weakness, and pain. He states that he woke up approximately one hour prior to arrival and noticed that his right lower extremity was tingling and felt like pins and needles. He stated that he tried to stand up andit was very weak and he fell to his left side. He denies any head injury. No lower back injury. He states he did not injure the leg with the fall and that occur prior to the fall. He states the last time he noticed that the leg was normal was around 6 or 6:30 this morning when he got up to get a glass of water. The patient claims that he's been using his insulin as prescribed. He states he's been checking his sugars at home and they have been normal area denies any chest pain or trouble breathing. No cough. No fevers or chills. No nausea, vomiting, or diarrhea. Denies dysuria or hematuria. Again he denies any back pain. He states that he has not had anything like this previously. He states that the pain seems to be more intense over the knee and is worse with moving the lower extremity. The patient called an ambulance when he notices symptoms and came to the emergency department. EMS noted that his sugar was in the 300s and he was tachycardic. He denies any other acute complaints. Currently states that he does not want any pain medications. Mental Status Examination - this is a 22-year-old male who lives with his father who stated he's not been able to get follow-up care due to the [facility] not giving him an ID due to the fact he does not have a student ID nor can he get transcripts from the school that he attended. He states he would take his medication if he had ID could be serviced by [facility]. His mother is not in his life who lives with a roommate. His father is at home and he does not know how he got to the hospital today. General Appearance: [disheveled, appears stated age] Speech/Language: [slow,hesitant, soft, ] Attitude/Behavior: [withdrawn, indifferent] Mood: [depressed 8 out of 10, anxious 10 out of 10, hopelessness] Affect: [ flat, blunted constricted] Orientation: [Not oriented to time, but is person, place situation] Thought Content: [wnl Risk Factors: [He has had thoughts in the past but this was not a suicide attempt today denies suicidal (ideations, plan), and/or Homicidal (ideations, plan) Perception: [wnl, denies hallucinations (auditory, visual, tactile), other] Thought Processes: [goal-oriented he wants help and cannot get up from the [facility] to get an ID for him so that he can have follow-up care at [facility]. He has not been on any medications due to the fact he cannot have an ID Concentration/Attention Span: [impaired] [Per observation and interview with the patient] Recent Memory: [wnl Remote Memory: [wnl] [past events, as related history] Intelligence: [below average] [based on history, based on vocabulary, syntax, grammar, and content] Judgement: [poor] [per patient's behavior/history of present illness] Insight: [poor] [understanding severity of illness/history of present illness] Psychiatric impression: Major depressive disorder recurrent severe in nature and diabetes. (1) MDD (major depressive disorder), recurrent episode, moderate Current Visit: No Status: Acute Priority: High Code(s): F33.1 - MAJOR DEPRESSIVE DISORDER, RECURRENT, MODERATE SNOMED Code(s): 322764542 Plan: He was admitted on a formal voluntary for psychiatric admission on 3 [address]. mental health unit [facility]. He will be restarted on the medications that he has stopped due to lack of compliance including mood stabilizer antidepressant as follows:FLUoxetine HCL [PROzac] 40 mg PO DAILY #30 cap [Rx] Insulin Aspart [NovoLOG (formulary)] 6 unit SQ Insulin Detemir [Levemir] 18 unit SQ DAILY buPROPion XL [Wellbutrin XL] 300 mg PO DAILY hydrOXYzine PAMOATE [Vistaril] 25 mg PO TID PRN traZODone HCL [Desyrel] 200 mg PO HS He'll be integrated into [facility] environment for 15 minute checks and usual protocol for safety and on the mental health unit. He'll be evaluated by medicine, psychiatry, nursing staff, social work and occupational therapy. He will be expected to go to groups on a daily basis and integrated [facility] therapeutic environment in a positive manner Time with Patient: Less than 30
[2018-07-18 12:45] LABS: Glucose,Whole Blood 247 mg/dL (75-99)
[2018-07-18] MEDS: MULTIVITAMINS, THERA 1 EACH TAB PO SCH (13:11)
[2018-07-18] MEDS: FOLIC ACID 1 MG TAB PO SCH (13:11)
[2018-07-18] MEDS: THIAMINE 100 MG TAB PO SCH (13:11)
[2018-07-18 17:36] LABS: Glucose,Whole Blood 202 mg/dL (75-99)
[2018-07-18 20:14] LABS: Glucose,Whole Blood 201 mg/dL (75-99)
[2018-07-18] MEDS: INSULIN DETEMIR (LEVEMIR) 100 UNIT/ML SYR SQ SCH (20:16)
[2018-07-18] MEDS ORDERED: lamoTRIgine 100 MG TAB PO SCH (21:00)
[2018-07-18] MEDS: traZODone HCL 100 MG TAB PO SCH (22:12)
[2018-07-19 03:02] LABS: Glucose,Whole Blood 101 mg/dL (75-99)
[2018-07-19 06:32] LABS: Glucose,Whole Blood 77 mg/dL (75-99)
[2018-07-19] MEDS: INSULIN ASPART (NovoLOG) 100 UNIT/ML VIAL SQ SCH ×7 (08:37→21:26)
[2018-07-19] MEDS: FLUoxetine HCL 20 MG CAP PO SCH (08:55)
[2018-07-19] MEDS: buPROPion XL 300 MG TAB.ER.24H PO SCH (08:55)
[2018-07-19] MEDS: FOLIC ACID 1 MG TAB PO SCH (12:10)
[2018-07-19] MEDS: THIAMINE 100 MG TAB PO SCH (12:10)
[2018-07-19] MEDS: MULTIVITAMINS, THERA 1 EACH TAB PO SCH (12:10)
--- NOTE | 2018-07-19 12:33 | P.PN ---
Subjective Progress Note Date: 07/19/18 Principal diagnosis: Major depressive disorder recurrent severe in nature and diabetes. 07/18/2018: Chart reviewed, discussed with nursing and interview of patient. Today he is going to groups, taking his medication, still feels depressed hopelessness and helpless and overwhelmed. He still states he needs help to get his identification which he can't get his father or mother to help him. 07/19/2018: Chart reviewed and discussed with nursing staff his blood sugars in mental status. Interviewed the patient and chief complaint today is still feeling depressed hopelessness and helpless and overwhelmed. Still states that he needs help to get his identification which had he has had difficulty. Objective - Vital Signs Vital signs: Vital Signs Temp 97.8 F 07/19/18 06:20 Pulse 107 H 07/19/18 06:20 Resp 16 07/19/18 06:20 BP 109/74 07/19/18 06:20 Pulse Ox Intake & Output 07/18/18 07/19/18 07/19/18 18:59 06:59 18:59 Weight 61.5 kg - Labs Labs: Abnormal Lab Results - Last 24 Hours (Table) 07/18/18 07/18/18 07/18/18 Range/Units 12:32 17:28 19:49 POC Glucose (mg/dL) 247 H 202 H 201 H (75-99) mg/dL 07/19/18 Range/Units 03:01 POC Glucose (mg/dL) 101 H (75-99) mg/dL Assessment and Plan Assessment: This is a 22-year-old male with history of type 1 diabetes with multiple episodes of DKA who was recently hospitalized for the same. The patient presents to the emergency department today because of right lower extremity numbness, weakness, and pain. He states that he woke up approximately one hour prior to arrival and noticed that his right lower extremity was tingling and felt like pins and needles. He stated that he tried to stand up andit was very weak and he fell to his left side. He denies any head injury. No lower back injury. He states he did not injure the leg with the fall and that occur prior to the fall. He states the last time he noticed that the leg was normal was around 6 or 6:30 this morning when he got up to get a glass of water. The patient claims that he's been using his insulin as prescribed. He states he's been checking his sugars at home and they have been normal area denies any chest pain or trouble breathing. No cough. No fevers or chills. No nausea, vomiting, or diarrhea. Denies dysuria or hematuria. Again he denies any back pain. He states that he has not had anything like this previously. He states that the pain seems to be more intense over the knee and is worse with moving the lower extremity. The patient called an ambulance when he notices symptoms and came to the emergency department. EMS noted that his sugar was in the 300s and he was tachycardic. He denies any other acute complaints. Currently states that he does not want any pain medications. Mental Status Examination - this is a 22-year-old male who lives with his father who stated he's not been able to get follow-up care due to the [facility] not giving him an ID due to the fact he does not have a student ID nor can he get transcripts from the school that he attended. He states he would take his medication if he had ID could be serviced by [facility]. His mother is not in his life who lives with a roommate. His father is at home and he does not know how he got to the hospital today. General Appearance: [disheveled, appears stated age] Speech/Language: [slow,hesitant, soft, ] Attitude/Behavior: [withdrawn, indifferent] Mood: [depressed 8 out of 10, anxious 10 out of 10, hopelessness] Affect: [ flat, blunted constricted] Orientation: [Not oriented to time, but is person, place situation] Thought Content: [wnl Risk Factors: [He has had thoughts in the past but this was not a suicide attempt today denies suicidal (ideations, plan), and/or Homicidal (ideations, plan) Perception: [wnl, denies hallucinations (auditory, visual, tactile), other] Thought Processes: [goal-oriented he wants help and cannot get up from the [facility] to get an ID for him so that he can have follow-up care at [facility]. He has not been on any medications due to the fact he cannot have an ID Concentration/Attention Span: [impaired] [Per observation and interview with the patient] Recent Memory: [wnl Remote Memory: [wnl] [past events, as related history] Intelligence: [below average] [based on history, based on vocabulary, syntax, grammar, and content] Judgement: [poor] [per patient's behavior/history of present illness] Insight: [poor] [understanding severity of illness/history of present illness] Psychiatric impression: Major depressive disorder recurrent severe in nature and diabetes. (1) MDD (major depressive disorder), recurrent episode, moderate Current Visit: No Status: Acute Priority: High Code(s): F33.1 - MAJOR DEPRESSIVE DISORDER, RECURRENT, MODERATE SNOMED Code(s): 958475474 Plan: He was admitted on a formal voluntary for psychiatric admission on 3 [address]. mental health unit [facility]. He will be restarted on the medications that he has stopped due to lack of compliance including mood stabilizer antidepressant as follows:FLUoxetine HCL [PROzac] 40 mg PO DAILY #30 cap [Rx] Insulin Aspart [NovoLOG (formulary)] 6 unit SQ Insulin Detemir [Levemir] 18 unit SQ DAILY buPROPion XL [Wellbutrin XL] 300 mg PO DAILY hydrOXYzine PAMOATE [Vistaril] 25 mg PO TID PRN traZODone HCL [Desyrel] 200 mg PO HS He'll be integrated into [facility] environment for 15 minute checks and usual protocol for safety and on the mental health unit. He'll be evaluated by medicine, psychiatry, nursing staff, social work and occupational therapy. He will be expected to go to groups on a daily basis and integrated [facility] therapeutic environment in a positive manner 07/19/2018: He has been restarted on his medication and his blood sugars still are difficult to control. He is on [facility] 15 minute checks and usual protocol for the mental health court. His Lamictal we'll go to 200 mg by mouth daily at bedtime tonight. He'll be maintained on Prozac and Wellbutrin and trazodone.
[2018-07-19 12:38] LABS: Glucose,Whole Blood 267 mg/dL (75-99)
[2018-07-19 16:40] LABS: Glucose,Whole Blood 196 mg/dL (75-99)
--- NOTE | 2018-07-19 17:26 | XR ---
EXAMINATION TYPE: XR elbow complete RT DATE OF EXAM: 07/19/2018 COMPARISON: None HISTORY: Dizzy, fall, pain TECHNIQUE: Three-view right elbow FINDINGS: No acute fractures are evident. Radius aligns normally with the humerus. The anterior fat p ad is normal. No elevation of posterior fat pad is evident. Soft tissues are unremarkable. IMPRESSION: 1. Normal three-view right elbow. 2. Follow-up exams can be performed 7-10 days from acute trauma for continued pain.
[2018-07-19 17:46] LABS: Glucose,Whole Blood 228 mg/dL (75-99)
--- NOTE | 2018-07-19 18:14 | CT ---
EXAMINATION TYPE: CT brain wo con DATE OF EXAM: 07/19/2018 COMPARISON: 01/27/2013 INDICATION: Fall, LOC, dizziness. DLP: 1081.5 mGycm, Automated exposure control for dose reduction was used. CONTRAST: None CT of the brain is performed utilizing 3 mm thick sections through the posterior fossa and 3 mm thick sections through the remaining calvarium. Study is performed within 24 hours of arrival to the hosp [facility]. No abnormal hyperdensity is present to suggest an acute intracranial hemorrhage. No mass lesion is evident. No acute infarcts are evident. Ventricles and sulci are appropriate for the patient age. Paranasal sinuses and mastoid air cells within the [id number] are clear. No acute fractures are evident IMPRESSIONS: 1. Normal CT Brain
[2018-07-19 20:09] LABS: Glucose,Whole Blood 166 mg/dL (75-99)
[2018-07-19] MEDS ORDERED: lamoTRIgine 100 MG TAB PO SCH (21:00)
[2018-07-19] MEDS: traZODone HCL 100 MG TAB PO SCH (21:24)
[2018-07-19] MEDS: INSULIN DETEMIR (LEVEMIR) 100 UNIT/ML SYR SQ SCH (21:25)
[2018-07-20 02:43] LABS: Glucose,Whole Blood 143 mg/dL (75-99)
[2018-07-20 06:38] LABS: Glucose,Whole Blood 82 mg/dL (75-99)
[2018-07-20 06:41] VITALS: BP 94/64; PULSE 116; RESP 14; TEMP 97.9
[2018-07-20 07:52] LABS: Glucose,Whole Blood 126 mg/dL (75-99)
[2018-07-20] MEDS: INSULIN ASPART (NovoLOG) 100 UNIT/ML VIAL SQ SCH ×4 (08:00→13:07)
[2018-07-20] MEDS: buPROPion XL 300 MG TAB.ER.24H PO SCH (09:06)
[2018-07-20] MEDS: FLUoxetine HCL 20 MG CAP PO SCH (09:06)
[2018-07-20] MEDS ORDERED: diphenhydrAMINE 25 MG CAP PO STA (12:15)
[2018-07-20 12:32] LABS: Glucose,Whole Blood 109 mg/dL (75-99)
--- NOTE | 2018-07-20 12:45 | P.DS ---
Providers Date of admission: 07/16/18 13:58 Expected date of discharge: 07/20/18 Attending physician: William Gaxiola, Consults: 07/16/18 14:03 Consult Physician Routine Consulting Provider: Brown Valenzuela Consult Reason/Comments: medical care Do you want consulting provider notified?: Yes 07/16/18 15:00 Consult Physician Routine Consulting Provider: Latesha Villa Consult Reason/Comments: H&P Do you want consulting provider notified?: Already Contacted Primary care physician: Brown Valenzuela - Discharge Diagnosis(es) (1) MDD (major depressive disorder), recurrent episode, moderate This is a 22-year-old male with history of type 1 diabetes with multiple episodes of DKA who was recently hospitalized for the same. The patient presents to the emergency department today because of right lower extremity numbness, weakness, and pain. He states that he woke up approximately one hour prior to arrival and noticed that his right lower extremity was tingling and felt like pins and needles. He stated that he tried to stand up andit was very weak and he fell to his left side. He denies any head injury. No lower back injury. He states he did not injure the leg with the fall and that occur prior to the fall. He states the last time he noticed that the leg was normal was around 6 or 6:30 this morning when he got up to get a glass of water. The patient claims that he's been using his insulin as prescribed. He states he's been checking his sugars at home and they have been normal area denies any chest pain or trouble breathing. No cough. No fevers or chills. No nausea, vomiting, or diarrhea. Denies dysuria or hematuria. Again he denies any back pain. He states that he has not had anything like this previously. He states that the pain seems to be more intense over the knee and is worse with moving the lower extremity. The patient called an ambulance when he notices symptoms and came to the emergency department. EMS noted that his sugar was in the 300s and he was tachycardic. He denies any other acute complaints. Currently states that he does not want any pain medications. PAST PSYCHIATRIC HISTORY: Previous hospitalization at [facility] following a suicide attempt by overdosing on insulin. Also, admitted to [facility] three with last admission in February 2017; treated with Prozac and Wellbutrin XL. However, pt did not f/u with outpatient psychiatric services and was discharged from [address] [place] [address] on 05/09/2017 with below medications. It is obvious that she has not followed up in [facility] mental health. Discharge Medication List FLUoxetine HCL [PROzac] 40 mg PO DAILY #30 cap 05/09/17 [Rx] Insulin Aspart [NovoLOG (formulary)] 6 unit SQ AC-TID #1 vial 05/09/17 [Rx] Insulin Detemir [Levemir] 18 unit SQ DAILY #1 syr 05/09/17 [Rx] buPROPion XL [Wellbutrin XL] 300 mg PO DAILY #30 tab.er.24h 05/09/17 [Rx] hydrOXYzine PAMOATE [Vistaril] 25 mg PO TID PRN #90 cap 05/09/17 [Rx] traZODone HCL [Desyrel] 200 mg PO HS #30 tab 05/09/17 [Rx] Home Medications Medication Instructions Recorded Confirmed Insulin Glargine [Lantus] 25 unit SQ HS 09/25/17 03/08/18 traZODone HCL 150 mg PO HS 10/17/17 03/08/18 Insulin Aspart [NovoLOG See Protocol SQ AC-TID 03/08/18 03/08/18 (formulary)] Previous Rx's Medication Instructions Recorded Erythromycin Ophth Oint [Romycin 1 applic LEFT EYE QID 7 Days #1 04/07/18 Ophth Oint] tube Allergies Allergy/AdvReac Type Severity Reaction Status Date / Time No Known Allergies Allergy Verified 04/07/18 11:19 Past Medical History Past Medical History: Asthma, Diabetes Mellitus, Skin Disorder Additional Past Medical History / Comment(s): , insulin dependent diabetes oral motor apraxia;. psoriasis, previous suicidal attempts anxiety/depression, previous hospital physicians for DKA,gastroparesis. History of Any Multi-Drug Resistant Organisms: None Reported Past Surgical History: Adenoidectomy Additional Past Surgical History / Comment(s): 2002 Past Anesthesia/Blood Transfusion Reactions: No Reported Reaction Past Psychological History: Anxiety, Depression Smoking Status: Former smoker Past Alcohol Use History: None Reported Past Drug Use History: None Reported - Past Family History Mother Family Medical History: CVA/TIA Father Family Medical History: Hyperlipidemia, Hypertension Additional Family Medical History / Comment(s): . Current Visit: No Status: Acute Priority: Low Hospital Course: He was admitted on a formal voluntary for psychiatric admission on [address] [facility]. He will be restarted on the medications that he has stopped due to lack of compliance including mood stabilizer antidepressant as follows:FLUoxetine HCL [PROzac] 40 mg PO DAILY #30 cap [Rx] Insulin Aspart [NovoLOG (formulary)] 6 unit SQ Insulin Detemir [Levemir] 18 unit SQ DAILY buPROPion XL [Wellbutrin XL] 300 mg PO DAILY hydrOXYzine PAMOATE [Vistaril] 25 mg PO TID PRN traZODone HCL [Desyrel] 200 mg PO HS He'll be integrated into [facility] environment for 15 minute checks and usual protocol for safety and on the mental health unit. He'll be evaluated by medicine, psychiatry, nursing staff, social work and occupational therapy. He will be expected to go to groups on a daily basis and integrated [facility] in a positive manner 07/19/2018: He has been restarted on his medication and his blood sugars still are difficult to control. He is on [facility] 15 minute checks and usual protocol for the mental health court. His Lamictal we'll go to 200 mg by mouth daily at bedtime tonight. He'll be maintained on Prozac and Wellbutrin and trazodone. Mental status examination dated discharge: The patient presents alert, pleasant, and cooperative. There calmly seated without any agitated behavior. [He] reports that [his] mood is good. Affect is congruent and euthymic. [He] deny having any suicidal or homicidal ideation intent or plan. [He] denies any auditory or visual hallucinations. There is no evidence of any delusional thought content. [His] thought process is linear and goal-directed. [His] speech is fluent and nonpressured. [His] memory and concentration is grossly intact for the purposes of this session. Patient Condition at Discharge: Stable Plan - Discharge Summary Discharge Rx Participant: Yes New Discharge Prescriptions: New Folic Acid 1 mg PO DAILY@1200 tab lamoTRIgine [LaMICtal] 200 mg PO 2100 30 Days #30 tab Loperamide [Imodium] 2 mg PO QID PRN 10 Days #40 cap PRN Reason: Diarrhea Multivitamins, Thera [Multivitamin (formulary)] 1 each PO DAILY@1200 tab Thiamine [Vitamin B-1] 100 mg PO DAILY@1200 tab Continue buPROPion XL [Wellbutrin XL] 300 mg PO DAILY 30 Days #30 tab.er.24h FLUoxetine HCL [PROzac] 60 mg PO DAILY 30 Days #90 cap INSULIN ASPART (NovoLOG) [NovoLOG (formulary)] 10 unit SQ AC-TID #1 vial Insulin Detemir (Levemir) [Levemir] 30 unit SQ HS 30 Days #1 pen traZODone HCL [Desyrel] 200 mg PO HS 30 Days #90 tab Discontinued lamoTRIgine [LaMICtal] 50 mg PO HS INSULIN ASPART (NovoLOG) [NovoLOG (formulary)] 10 unit SQ ACHS #1 vial Discharge Medication List FLUoxetine HCL [PROzac] 60 mg PO DAILY 30 Days #90 cap 07/20/18 [Rx] Folic Acid 1 mg PO DAILY@1200 tab 07/20/18 [Rx] INSULIN ASPART (NovoLOG) [NovoLOG (formulary)] 10 unit SQ AC-TID #1 vial [Rx] Insulin Detemir (Levemir) [Levemir] 30 unit SQ HS 30 Days #1 pen 07/20/18 [Rx] Loperamide [Imodium] 2 mg PO QID PRN 10 Days #40 cap 07/20/18 [Rx] Multivitamins, Thera [Multivitamin (formulary)] 1 each PO DAILY@1200 tab [Rx] Thiamine [Vitamin B-1] 100 mg PO DAILY@1200 tab 07/20/18 [Rx] buPROPion XL [Wellbutrin XL] 300 mg PO DAILY 30 Days #30 tab.er.24h 07/20/18 [Rx ] lamoTRIgine [LaMICtal] 200 mg PO 2100 30 Days #30 tab 07/20/18 [Rx] traZODone HCL [Desyrel] 200 mg PO HS 30 Days #90 tab 07/20/18 [Rx] Follow up Appointment(s)/Referral(s): [facility] [Outside] - 1-2 Days (walk in intake today until 300pm Friday 1030 - 500pm 830 - 300pm) Activity/Diet/Wound Care/Special Instructions: Keep your follow up appointments as scheduled. Continue to take medications as prescribed. Call your primary care physician or psychiatrist when need refills of medications. No alcohol or street drugs. No access to guns or weapons. Crisis line if needed . Discharge Disposition: HOME SELF-CARE
[2018-07-20] MEDS: FOLIC ACID 1 MG TAB PO SCH (13:06)
[2018-07-20] MEDS: THIAMINE 100 MG TAB PO SCH (13:06)
[2018-07-20] MEDS: MULTIVITAMINS, THERA 1 EACH TAB PO SCH (13:06)
== END 2018-07-20 16:55 | disposition home or self-care (01) | DRG 885 ==
LOC: 3MHU 13:58
PROVIDERS: ADMIT Psychiatry & Neurology Psychiatry; ATTEND Psychiatry & Neurology Psychiatry
DX: F33.1 Major depressive disorder, recurrent, moderate (principal); E43 Unspecified severe protein-calorie malnutrition; E10.42 Type 1 diabetes mellitus with diabetic polyneuropathy; E10.43 Type 1 diabetes mellitus with diabetic autonomic (poly)neuropathy; K31.84 Gastroparesis; J45.909 Unspecified asthma, uncomplicated; F12.90 Cannabis use, unspecified, uncomplicated; F41.9 Anxiety disorder, unspecified; L40.9 Psoriasis, unspecified; Z91.19 Patient's noncompliance with other medical treatment and regimen; Z79.4 Long term (current) use of insulin; Z79.899 Other long term (current) drug therapy; Z87.891 Personal history of nicotine dependence; Z91.5 Personal history of self-harm; Z82.3 Family history of stroke; Z82.49 Family history of ischemic heart disease and other diseases of the circulatory system; Z83.49 Family history of other endocrine, nutritional and metabolic diseases
CPT/HCPCS: 70450

== ENCOUNTER 2018-08-29 08:17 | Emergency (ER) | payer OTHER ==
[2018-08-29 08:24] VITALS: RESP 18
--- NOTE | 2018-08-29 08:38 | ED ---
Recheck HPI - General Chief Complaint: Recheck/Abnormal Lab/Rx Stated Complaint: Rib pain Time Seen by Provider: 08/29/18 08:27 Source: patient, RN notes reviewed Mode of arrival: ambulatory Limitations: no limitations - History of Present Illness Initial Comments: 23-year-old male presents emergency Department with chief complaint of bilateral rib pain. Patient states that he was boxing with another person 3 days ago. Patient states he hit the ribs several times and has had continuation of pain. Patient states it hurts to deep breath and no shortness of breath at baseline. Patient denies any nausea vomiting diarrhea constipation. Patient isn't known insulin dependent diabetic poorly controlled states he has not checked his blood sugar in several days. Patient offers no other complaints. - Related Data Home Medications Medication Instructions Recorded Confirmed Insulin Glargine [Lantus] 25 unit SQ HS 08/17/18 08/29/18 lamoTRIgine [LaMICtal] 200 mg PO HS 08/17/18 08/29/18 INSULIN ASPART (NovoLOG) [NovoLOG 8 unit SQ AC-TID 08/29/18 08/29/18 (formulary)] traZODone HCL [Desyrel] 300 mg PO HS 08/29/18 08/29/18 Previous Rx's Medication Instructions Recorded FLUoxetine HCL [PROzac] 60 mg PO DAILY 30 Days #90 cap 07/20/18 buPROPion XL [Wellbutrin XL] 300 mg PO DAILY 30 Days #30 07/20/18 tab.er.24h Ibuprofen [Motrin] 600 mg PO Q8HR PRN #30 tab 08/29/18 Allergies Allergy/AdvReac Type Severity Reaction Status Date / Time No Known Allergies Allergy Verified 08/29/18 08:41 Review of Systems ROS Statement: Those systems with pertinent positive or pertinent negative responses have been documented in the HPI. ROS Other: All systems not noted in ROS Statement are negative. Past Medical History Past Medical History: Asthma, Diabetes Mellitus, Skin Disorder Additional Past Medical History / Comment(s): , insulin dependent diabetes oral apraxia; previous suicidal attempts anxiety/depression, previous hospital physicians for DKA,gastroparesis. History of Any Multi-Drug Resistant Organisms: None Reported Past Surgical History: Adenoidectomy Additional Past Surgical History / Comment(s): 2002 Past Anesthesia/Blood Transfusion Reactions: No Reported Reaction Past Psychological History: Anxiety, Depression Smoking Status: Former smoker Past Alcohol Use History: None Reported Past Drug Use History: Marijuana - Past Family History Mother Family Medical History: CVA/TIA Father Family Medical History: Hyperlipidemia, Hypertension Additional Family Medical History / Comment(s): . General Exam Limitations: no limitations General appearance: alert, in no apparent distress Head exam: Present: atraumatic, normocephalic, normal inspection Eye exam: Present: normal appearance, PERRL, EOMI. Absent: scleral icterus, conjunctival injection, periorbital swelling ENT exam: Present: normal exam, mucous membranes moist Neck exam: Present: normal inspection. Absent: tenderness, meningismus, lymphadenopathy Respiratory exam: Present: normal lung sounds bilaterally, chest wall tenderness (Bilateral lower ribs). Absent: respiratory distress, wheezes, rales, rhonchi, stridor Cardiovascular Exam: Present: normal rhythm, tachycardia, normal heart sounds. Absent: systolic murmur, diastolic murmur, rubs, gallop, clicks GI/Abdominal exam: Present: soft, normal bowel sounds. Absent: distended, tenderness, guarding, rebound, rigid Back exam: Present: full ROM. Absent: tenderness, CVA tenderness (R), CVA tenderness (L), paraspinal tenderness, vertebral tenderness Skin exam: Present: warm, dry, intact, normal color. Absent: rash Course Vital Signs 08/29/18 08:22 Temperature 98.8 F Pulse Rate 104 H Respiratory 18 Rate Blood Pressure 116/81 O2 Sat by Pulse 97 Oximetry Medical Decision Making - Medical Decision Making 23-year-old male presented for rib pain after boxing. X-rays were obtained which shows no pneumothorax or rib fracture. Patient did have hyperglycemia was given 15 units of NovoLog. Blood glucose is trending down. Patient and mother agree that they'll recheck in one hour at home and correct from there. Patient will be discharged return parameters were discussed. - Lab Data Lab Results 08/29/18 Range/Units 08:38 POC Glucose (mg/dL) 455 H (75-99) mg/dL POC Glu Production Trainer ID Francisca Hill Disposition Clinical Impression: Hyperglycemia, Contusion of ribs Disposition: HOME SELF-CARE Condition: Stable Instructions (If sedation given, give patient instructions): Rib Contusion (ED) Additional Instructions: Please return to the Emergency Department if symptoms worsen or any other concerns. Prescriptions: Ibuprofen [Motrin] 600 mg PO Q8HR PRN #30 tab PRN Reason: Pain Is patient prescribed a controlled substance at d/c from ED?: No Referrals: Brown Valenzuela MD [Primary Care Provider] - 1-2 days Time of Disposition: 09:31
[2018-08-29 08:39] LABS: Glucose,Whole Blood 455 mg/dL (75-99)
[2018-08-29] MEDS ORDERED: INSULIN ASPART (NovoLOG) 100 UNIT/ML VIAL SQ ONE (08:42)
--- NOTE | 2018-08-29 08:53 | XR ---
EXAMINATION TYPE: XR chest 2V DATE OF EXAM ORDERED: 08/29/2018 HISTORY: rib pain. REFERENCE: Previous study dated 08/16/2018. FINDINGS: The lungs are clear. Pleural spaces are clear. Heart size is normal. I see no evidence of pneumothora x. No displaced rib fractures are seen. IMPRESSION: NORMAL CHEST.
[2018-08-29 09:30] LABS: Glucose,Whole Blood 431 mg/dL (75-99)
[2018-08-29 09:46] VITALS: BP 112/77; PULSE 112; TEMP 98.6
== END 2018-08-29 09:46 | disposition home or self-care (01) ==
LOC: EC 08:17
DX: S20.212A Contusion of left front wall of thorax, initial encounter (principal); S20.211A Contusion of right front wall of thorax, initial encounter; E11.65 Type 2 diabetes mellitus with hyperglycemia; E11.43 Type 2 diabetes mellitus with diabetic autonomic (poly)neuropathy; K31.84 Gastroparesis; F32.9 Major depressive disorder, single episode, unspecified; Z79.4 Long term (current) use of insulin; Z79.899 Other long term (current) drug therapy; Z87.891 Personal history of nicotine dependence; Y04.8XXA Assault by other bodily force, initial encounter; Y93.71 Activity, boxing; Y92.009 Unspecified place in unspecified non-institutional (private) residence as the place of occurrence of the external cause
CPT/HCPCS: 36415; 71046; 99283

== ENCOUNTER 2018-09-09 16:13 | Emergency (ER) | payer OTHER ==
[2018-09-09] MEDS ORDERED: IPRATROPIUM-ALBUTEROL 3 ML NEB INHALATION STA (16:45)
[2018-09-09] MEDS ORDERED: SODIUM CHLORIDE 0.9% 1,000 ML IV STA (16:47)
[2018-09-09 17:23] LABS: Basophils # (A) 0.1 k/uL (0-0.2); Basophils % (A) 1 %; Eosinophils # (A) 0.3 k/uL (0-0.7); Eosinophils % (A) 2 %; HCT 42.8 % (39.0-53.0); HGB 14.7 gm/dL (13.0-17.5); Lymphocytes # (A) 3.2 k/uL (1.0-4.8); Lymphocytes % (A) 27 %; MCH 30.5 pg (25.0-35.0); MCHC 34.4 g/dL (31.0-37.0); MCV 88.6 fL (80.0-100.0); Mean Platelet Volume 6.7; Monocytes # (A) 0.7 k/uL (0-1.0); Monocytes % (A) 6 %; Neutrophils # (A) 7.5 k/uL (1.3-7.7); Neutrophils % (A) 63 %; Platelet Count 534 k/uL (150-450); RBC 4.83 m/uL (4.30-5.90); RDW 13.7 % (11.5-15.5)
[2018-09-09 17:34] LABS: ALT 22 U/L (21-72); AST 12 U/L (17-59); Alkaline Phosphatase 103 U/L (38-126); Anion Gap 12 mmol/L; Blood Urea Nitrogen 13 mg/dL (9-20); Calcium 9.7 mg/dL (8.4-10.2); Carbon Dioxide 26 mmol/L (22-30); Chloride 95 mmol/L (98-107); Glucose 479 mg/dL (74-99); Potassium 4.1 mmol/L (3.5-5.1); Sodium 133 mmol/L (137-145); Total Bilirubin 0.5 mg/dL (0.2-1.3); Total Protein 6.3 g/dL (6.3-8.2)
[2018-09-09] MEDS ORDERED: INSULIN ASPART (NovoLOG) 100 UNIT/ML VIAL SQ ONE (18:05)
--- NOTE | 2018-09-09 18:12 | ED ---
General Adult HPI - General Chief complaint: Upper Respiratory Infection Stated complaint: DEMETRICE Time Seen by Provider: 09/09/18 16:23 Source: patient, RN notes reviewed, old records reviewed Mode of arrival: ambulatory Limitations: no limitations - History of Present Illness Initial comments: 23-year-old male patient with past history of type 1 diabetes presents to ED with approximately 3 weeks of nonproductive cough, mild shortness of breath. She reports that he has had mild cough since he was admitted to this hospital for diabetic ketoacidosis and pneumonia. Patient states that he has mild pain in his ribs while coughing secondary to a rib contusion he sustained while boxing approximately 2 weeks ago. Denies any chest pain at rest. Patient den ies shortness of breath at rest. States that shortness of breath as well coughing. Patient does report a history of asthma as a child, reports he has not had issues with asthma in recent years. Patient denies any other complaints today. Patient states that he feels as if he is not in diabetic ketoacidosis. Systemic: Pt denies fatigue, myalgia, fever/chills, rash. Pt denies weakness, night sweats, weight loss. Neuro: Pt denies headache, visual disturbances, syncope or pre-syncope. HEENT: Pt denies ocular discharge or irritation, otalgia, rhinorrhea, pharyngitis or notable lymphadenopathy. Cardiopulmonary: Pt denies chest pain, SOB, heart palpitations, dyspnea on exertion. Abdominal/GI: Pt denies abdominal pain, n/v/d. : Pt denies dysuria, burning w/ urination, frequency/urgency. Denies new onset urinary or bowel incontinence. MSK: Pt denies myalgia, loss of strength or function in extremities. Neuro: Pt denies new onset weakness, paresthesias. - Related Data Home Medications Medication Instructions Recorded Confirmed Insulin Glargine [Lantus] 25 unit SQ HS 08/17/18 08/29/18 lamoTRIgine [LaMICtal] 200 mg PO HS 08/17/18 08/29/18 INSULIN ASPART (NovoLOG) [NovoLOG 8 unit SQ AC-TID 08/29/18 08/29/18 (formulary)] traZODone HCL [Desyrel] 300 mg PO HS 08/29/18 08/29/18 Previous Rx's Medication Instructions Recorded FLUoxetine HCL [PROzac] 60 mg PO DAILY 30 Days #90 cap 07/20/18 buPROPion XL [Wellbutrin XL] 300 mg PO DAILY 30 Days #30 07/20/18 tab.er.24h Ibuprofen [Motrin] 600 mg PO Q8HR PRN #30 tab 08/29/18 Albuterol Inhaler [Ventolin Hfa 1 - 2 puff INHALATION Q4-6H PRN #1 09/09/18 Inhaler] inhaler Allergies Allergy/AdvReac Type Severity Reaction Status Date / Time No Known Allergies Allergy Verified 09/09/18 16:20 Review of Systems ROS Statement: Those systems with pertinent positive or pertinent negative responses have been documented in the HPI. ROS Other: All systems not noted in ROS Statement are negative. Past Medical History Past Medical History: Asthma, Diabetes Mellitus, Skin Disorder Additional Past Medical History / Comment(s): , insulin dependent diabetes oral apraxia; previous suicidal attempts anxiety/depression, previous hospital physicians for DKA,gastroparesis. History of Any Multi-Drug Resistant Organisms: None Reported Past Surgical History: Adenoidectomy Additional Past Surgical History / Comment(s): 2002 Past Anesthesia/Blood Transfusion Reactions: No Reported Reaction Past Psychological History: Anxiety, Depression Smoking Status: Former smoker Past Alcohol Use History: None Reported Past Drug Use History: Marijuana - Past Family History Mother Family Medical History: CVA/TIA Father Family Medical History: Hyperlipidemia, Hypertension Additional Family Medical History / Comment(s): . General Exam - General Exam Comments Initial Comments: Constitutional: NAD, AOX3, Pt has pleasant affect. HEENT: NC/AT, trachea midline, neck supple, no lymphadenopathy. Posterior pharynx non erythematous, without exudates. External ears appear normal, without discharge. Mucous membranes moist. Eyes PERRLA, EOM intact. There is no scleral icterus. No pallor noted. Cardiopulmonary: RRR, no murmurs, rubs or gallops, no JVD noted. Lungs CTAB in anterior and posterior brady. No peripheral edema. Abdominal exam: Abdomen soft and non-distended. Abdomen non-tender to palpation in all 4 quadrants. Bowel sounds active in LLQ. No hepatosplenomegaly. No ecchymosis Neuro: CN II-XII intact. No nuchal rigidity. MSK: No posterior calf tenderness bilaterally, homans sign negative bilaterally. Posterior tibialis and radial pulse +2 bilaterally. Sensation intact in upper and lower extremities. Full active ROM in upper and lower extremities, 5/5 stregnth. Limitations: no limitations Course Vital Signs 09/09/18 09/09/18 09/09/18 16:18 17:22 17:32 Temperature 97.9 F Pulse Rate 117 H 100 96 Respiratory 20 Rate Blood Pressure 113/76 O2 Sat by Pulse 99 Oximetry 09/09/18 18:55 Temperature 98.2 F Pulse Rate 99 Respiratory 20 Rate Blood Pressure 136/75 O2 Sat by Pulse 99 Oximetry Medical Decision Making - Medical Decision Making 23-year-old male patient with past history of type 1 diabetes presents to ED with approximately 3 weeks of nonproductive cough, mild shortness of breath. She reports that he has had mild cough since he was admitted to this hospital for diabetic ketoacidosis and pneumonia. Patient states that he has mild pain in his ribs while coughing secondary to a rib contusion he sustained while boxing approximately 2 weeks ago. Denies any chest pain at rest. Patient denies shortness of breath at rest. States that shortness of breath as well coughing. Patient does report a history of asthma as a child, reports he has not had issues with asthma in recent years. Patient denies any other complaints today. Patient states that he feels as if he is not in diabetic ketoacidosis. Physical exam did not display acute pathology. Laboratory investigations revealed glucose of 479. UA displayed +4 glucose. No ketones, no anion gap, ammonia is negative. Mild leukocytosis of 12.0. Chest x-ray revealed no acute process. Patient administered 1 L normal saline. Patient administered 10 units of subcu NovoLog. Patient diagnosed with bronchitis. Patient prescribed inhaler. Shared decision making, patient does not wish to be on steroids due to possible hyperglycemic affect. Patient to follow up with primary care provider 1-2 days. Pt will monitor blood sugar at home. Patient will return to ER if condition worsens in anyway. Case discussed with Dr. Lynn. - Lab Data Result diagrams: 09/09/18 17:10 09/09/18 17:10 Lab Results 09/09/18 09/09/18 09/09/18 Range/Units 17:10 17:10 17:10 WBC 12.0 H (3.8-10.6) k/uL RBC 4.83 (4.30-5.90) m/uL Hgb 14.7 (13.0-17.5) gm/dL Hct 42.8 (39.0-53.0) % MCV 88.6 (80.0-100.0) fL MCH 30.5 (25.0-35.0) pg MCHC 34.4 (31.0-37.0) g/dL RDW 13.7 (11.5-15.5) % Plt Count 534 H (150-450) k/uL Neutrophils % 63 % Lymphocytes % 27 % Monocytes % 6 % Eosinophils % 2 % Basophils % 1 % Neutrophils # 7.5 (1.3-7.7) k/uL Lymphocytes # 3.2 (1.0-4.8) k/uL Monocytes # 0.7 (0-1.0) k/uL Eosinophils # 0.3 (0-0.7) k/uL Basophils # 0.1 (0-0.2) k/uL Sodium 133 L (137-145) mmol/L Potassium 4.1 (3.5-5.1) mmol/L Chloride 95 L (98-107) mmol/L Carbon Dioxide 26 (22-30) mmol/L Anion Gap 12 mmol/L BUN 13 (9-20) mg/dL Creatinine 0.34 L (0.66-1.25) mg/dL Est GFR (CKD-EPI)AfAm >90 (>60 ml/min/1.73 sqM) Est GFR (CKD-EPI)NonAf >90 (>60 ml/min/1.73 sqM) Glucose 479 H (74-99) mg/dL POC Glucose (mg/dL) (75-99) mg/dL POC Glu Purchasing Administrator ID Calcium 9.7 (8.4-10.2) mg/dL Total Bilirubin 0.5 (0.2-1.3) mg/dL AST 12 L (17-59) U/L ALT 22 (21-72) U/L Alkaline Phosphatase 103 (38-126) U/L Ammonia <9 (<30) umol/L Total Protein 6.3 (6.3-8.2) g/dL Albumin 4.0 (3.5-5.0) g/dL Urine Color Urine Appearance (Clear) Urine pH (5.0-8.0) Ur Specific [place] (1.001-1.035) Urine Protein (Negative) Urine Glucose (UA) (Negative) Urine Ketones (Negative) Urine Blood (Negative) Urine Nitrite (Negative) Urine Bilirubin (Negative) Urine Urobilinogen (<2.0) mg/dL Ur Leukocyte Esterase (Negative) 09/09/18 09/09/18 Range/Units 18:05 18:53 WBC (3.8-10.6) k/uL RBC (4.30-5.90) m/uL Hgb (13.0-17.5) gm/dL Hct (39.0-53.0) % MCV (80.0-100.0) fL MCH (25.0-35.0) pg MCHC (31.0-37.0) g/dL RDW (11.5-15.5) % Plt Count (150-450) k/uL Neutrophils % % Lymphocytes % % Monocytes % % Eosinophils % % Basophils % % Neutrophils # (1.3-7.7) k/uL Lymphocytes # (1.0-4.8) k/uL Monocytes # (0-1.0) k/uL Eosinophils # (0-0.7) k/uL Basophils # (0-0.2) k/uL Sodium (137-145) mmol/L Potassium (3.5-5.1) mmol/L Chloride (98-107) mmol/L Carbon Dioxide (22-30) mmol/L Anion Gap mmol/L BUN (9-20) mg/dL Creatinine (0.66-1.25) mg/dL Est GFR (CKD-EPI)AfAm (>60 ml/min/1.73 sqM) Est GFR (CKD-EPI)NonAf (>60 ml/min/1.73 sqM) Glucose (74-99) mg/dL POC Glucose (mg/dL) 394 H (75-99) mg/dL POC Glu Purchasing Administrator ID Kourtney Gamez Calcium (8.4-10.2) mg/dL Total Bilirubin (0.2-1.3) mg/dL AST (17-59) U/L ALT (21-72) U/L Alkaline Phosphatase (38-126) U/L Ammonia (<30) umol/L Total Protein (6.3-8.2) g/dL Albumin (3.5-5.0) g/dL Urine Color Light Yellow Urine Appearance Clear (Clear) Urine pH 5.0 (5.0-8.0) Ur Specific [place] 1.047 H (1.001-1.035) Urine Protein Trace H (Negative) Urine Glucose (UA) 4+ H (Negative) Urine Ketones Negative (Negative) Urine Blood Negative (Negative) Urine Nitrite Negative (Negative) Urine Bilirubin Negative (Negative) Urine Urobilinogen <2.0 (<2.0) mg/dL Ur Leukocyte Esterase Negative (Negative) Disposition Clinical Impression: Bronchitis Disposition: HOME SELF-CARE Condition: Stable Instructions (If sedation given, give patient instructions): Acute Bronchitis (ED) Additional Instructions: Patient to adhere to previously discussed treatment plan and will take medication(s) as directed. Patient to follow up with PCP in 1-2 days. Patient to return to ED if symptoms do not improve. Please continue to monitor blood sugar at home. Please use breathing treatment as needed. Please follow-up with primary care provider in 1-2 days. Prescriptions: Albuterol Inhaler [Ventolin Hfa Inhaler] 1 - 2 puff INHALATION Q4-6H PRN #1 inhaler PRN Reason: Cough Is patient prescribed a controlled substance at d/c from ED?: No Referrals: Brown Valenzuela MD [Primary Care Provider] - 1-2 days
[2018-09-09 18:16] LABS: Appearance,Urine Clear (Clear); Bilirubin,Urine Negative (Negative); Blood,Urine Negative (Negative); Color,Urine Light Yellow; Glucose,Urine (UA) 4+ (Negative); Ketones,Urine Negative (Negative); Leukocyte Esterase,Urine Negative (Negative); Nitrite,Urine Negative (Negative); Protein,Urine Trace (Negative); Urobilinogen,Urine <2.0 mg/dL (<2.0)
[2018-09-09 18:40] LABS: Specific Gravity,Urine 1.047 (1.001-1.035)
--- NOTE | 2018-09-09 18:47 | XR ---
EXAMINATION: XR chest 2V DATE AND TIME: 09/09/2018 6:23 PM CLINICAL INDICATION: PHH; Pain TECHNIQUE: Upright PA and lateral COMPARISON: 08/29/2018 FINDINGS: There is hyperinflation. The lungs are clear. The pleural spaces are negative. The cardiac silhouette is not enlarged. The remainder of the mediastinal silhouette is unremarkable. The skeletal structures and soft tissues are negative for acute findings. IMPRESSION: NO ACUTE PROCESS.
[2018-09-09 18:54] LABS: Glucose,Whole Blood 394 mg/dL (75-99)
[2018-09-09 19:42] VITALS: BP 132/56; PULSE 98; RESP 18; TEMP 98.1
== END 2018-09-09 19:36 | disposition home or self-care (01) ==
LOC: EC 16:13
DX: J45.909 Unspecified asthma, uncomplicated (principal); E10.9 Type 1 diabetes mellitus without complications; F41.9 Anxiety disorder, unspecified; F32.9 Major depressive disorder, single episode, unspecified; Z87.891 Personal history of nicotine dependence; Z79.4 Long term (current) use of insulin; Z79.899 Other long term (current) drug therapy
CPT/HCPCS: 36415; 71046; 80053; 81003; 82140; 85025; 94640; 96360; 99285

== ENCOUNTER 2018-10-04 01:06 | Inpatient (IN) | payer MEDICAID, OTHER ==
--- NOTE | 2018-10-04 01:51 | ED ---
Psych HPI - General Chief Complaint: Psychiatric Symptoms Stated Complaint: Suicidal Time Seen by Provider: 10/04/18 01:21 Source: patient Mode of arrival: ambulatory - History of Present Illness Initial Comments: Raul is a 23 yo male with PMH of depression who presents to the ER day for psychiatric evaluation. Patient states that he feels that he is a failure he is currently living on his sister's couch because he can't live on his own, he states that he lost his identification card has been having trouble getting 1 which makes everything is likely very difficult. Patient states he feels like anytime anything is going well his like just falls apart. Patient states he feels like it is constantly running into a brick wall and he doesn't feel like there is any hope for his like getting any better. Patient states that this evening he was thinking of suicide his plan was to overdose on insulin. Ever patient states that he has not been taking his insulin and hasn't checked his blood sugar in a while. - Related Data Home Medications Medication Instructions Recorded Confirmed Insulin Glargine [Lantus] 25 unit SQ HS 08/17/18 10/04/18 lamoTRIgine [LaMICtal] 200 mg PO HS 08/17/18 10/04/18 INSULIN ASPART (NovoLOG) [NovoLOG 8 unit SQ AC-TID 08/29/18 10/04/18 (formulary)] traZODone HCL [Desyrel] 300 mg PO HS 08/29/18 10/04/18 Previous Rx's Medication Instructions Recorded FLUoxetine HCL [PROzac] 60 mg PO DAILY 30 Days #90 cap 07/20/18 buPROPion XL [Wellbutrin XL] 300 mg PO DAILY 30 Days #30 07/20/18 tab.er.24h Ibuprofen [Motrin] 600 mg PO Q8HR PRN #30 tab 08/29/18 Albuterol Inhaler [Ventolin Hfa 1 - 2 puff INHALATION Q4-6H PRN #1 09/09/18 Inhaler] inhaler Allergies Allergy/AdvReac Type Severity Reaction Status Date / Time No Known Allergies Allergy Verified 10/04/18 01:17 Review of Systems ROS Statement: Those systems with pertinent positive or pertinent negative responses have been documented in the HPI. ROS Other: All systems not noted in ROS Statement are negative. Past Medical History Past Medical History: Asthma, Diabetes Mellitus, Skin Disorder Additional Past Medical History / Comment(s): , insulin dependent diabetes oral apraxia; previous suicidal attempts anxiety/depression, previous hospital physicians for DKA,gastroparesis. History of Any Multi-Drug Resistant Organisms: None Reported Past Surgical History: Adenoidectomy Additional Past Surgical History / Comment(s): 2002 Past Anesthesia/Blood Transfusion Reactions: No Reported Reaction Past Psychological History: Anxiety, Depression Smoking Status: Former smoker Past Alcohol Use History: None Reported Past Drug Use History: Marijuana - Past Family History Mother Family Medical History: CVA/TIA Father Family Medical History: Hyperlipidemia, Hypertension Additional Family Medical History / Comment(s): . General Exam - General Exam Comments Initial Comments: Physical Exam GENERAL: Patient is well-developed and well-nourished. Patient is nontoxic and well- hydrated and is in no distress. HENT: Normocephalic, Atraumatic. EYES: PERRL, EOMI PULMONARY: Unlabored respirations. CARDIOVASCULAR: RRR ABDOMEN: Soft and nontender with normal bowel sounds. SKIN: Skin is clear with no lesions or rashes and otherwise unremarkable. : Deferred NEUROLOGIC: Patient is alert and oriented x3. Moving all extremities spontaneously MUSCULOSKELETAL: Normal extremities with adequate strength and full range of motion. No lower extremity swelling or edema. No calf tenderness. PSYCHIATRIC: Depressed, suicidal Limitations: no limitations Course Vital Signs 10/04/18 10/04/18 10/04/18 01:14 06:39 10:55 Temperature 97.6 F 97.8 F 97.8 F Pulse Rate 107 H 90 100 Respiratory 18 16 18 Rate Blood Pressure 114/79 121/89 112/80 O2 Sat by Pulse 99 96 97 Oximetry Medical Decision Making - Medical Decision Making The patient was seen and evaluated history is obtained from the patient history of depression noncompliant with his antidepressant medications presenting to the ER feeling suicidal Patient has also been noncompliant with his insulin, [id number] because greater than 500 a workup was ordered to evaluate for possible DKA though on physical exam patient does not have any 2 small respirations and does not smell of ketones Labs with no anion gap, bicarb within normal limits, patient is hyperglycemic, electrolytes otherwise within normal limits IV fluids and insulin were ordered Repeat glucose was decreasing from the 500th that 370s. Patient resting comfortably. Patient did have a couple of episodes of nonbloody diarrhea. He was given Imodium for this. + Morning glucose was again elevated and appropriate sliding scale dose of insulin was administered. The patient was seen and evaluated by EPS nurse, at this time they do not have a disposition for him they're concerned about his poorly controlled diabetes, they recommend reevaluation in the morning. Patient care was signed out to Dr. Gregorio at shift change. - Lab Data Result diagrams: 10/04/18 03:10 10/04/18 03:10 Lab Results 10/04/18 10/04/18 10/04/18 Range/Units 02:00 02:00 02:02 WBC (3.8-10.6) k/uL RBC (4.30-5.90) m/uL Hgb (13.0-17.5) gm/dL Hct (39.0-53.0) % MCV (80.0-100.0) fL MCH (25.0-35.0) pg MCHC (31.0-37.0) g/dL RDW (11.5-15.5) % Plt Count (150-450) k/uL Neutrophils % % Lymphocytes % % Monocytes % % Eosinophils % % Basophils % % Neutrophils # (1.3-7.7) k/uL Lymphocytes # (1.0-4.8) k/uL Monocytes # (0-1.0) k/uL Eosinophils # (0-0.7) k/uL Basophils # (0-0.2) k/uL Sodium (137-145) mmol/L Potassium (3.5-5.1) mmol/L Chloride (98-107) mmol/L Carbon Dioxide (22-30) mmol/L Anion Gap mmol/L BUN (9-20) mg/dL Creatinine (0.66-1.25) mg/dL Est GFR (CKD-EPI)AfAm (>60 ml/min/1.73 sqM) Est GFR (CKD-EPI)NonAf (>60 ml/min/1.73 sqM) Glucose (74-99) mg/dL POC Glucose (mg/dL) 521 H (75-99) mg/dL POC Glu [facility] [employer] Associate ID Brenda Iniguez Plasma Lactic Acid Len (0.7-2.0) mmol/L Calcium (8.4-10.2) mg/dL Total Bilirubin (0.2-1.3) mg/dL AST (17-59) U/L ALT (21-72) U/L Alkaline Phosphatase (38-126) U/L Total Protein (6.3-8.2) g/dL Albumin (3.5-5.0) g/dL Urine Color Colorless Urine Appearance Clear (Clear) Urine pH 5.0 (5.0-8.0) Ur Specific [place] 1.041 H (1.001-1.035) Urine Protein Negative (Negative) Urine Glucose (UA) 4+ H (Negative) Urine Ketones 3+ H (Negative) Urine Blood Negative (Negative) Urine Nitrite Negative (Negative) Urine Bilirubin Negative (Negative) Urine Urobilinogen <2.0 (<2.0) mg/dL Ur Leukocyte Esterase Negative (Negative) Urine Opiates Screen Not Detected (NotDetected) Ur Oxycodone Screen Not Detected (NotDetected) Urine Methadone Screen Not Detected (NotDetected) Ur Propoxyphene Screen Not Detected (NotDetected) Ur Barbiturates Screen Not Detected (NotDetected) U Tricyclic Antidepress Not Detected (NotDetected) Ur Phencyclidine Scrn Not Detected (NotDetected) Ur Amphetamines Screen Not Detected (NotDetected) U Methamphetamines Scrn Not Detected (NotDetected) U Benzodiazepines Scrn Not Detected (NotDetected) Urine Cocaine Screen Not Detected (NotDetected) U Marijuana (THC) Screen Detected H (NotDetected) Acetone, Qual (Negative) 10/04/18 10/04/18 10/04/18 Range/Units 03:10 03:10 03:10 WBC 18.5 H (3.8-10.6) k/uL RBC 5.15 (4.30-5.90) m/uL Hgb 16.3 (13.0-17.5) gm/dL Hct 46.8 (39.0-53.0) % MCV 90.7 (80.0-100.0) fL MCH 31.7 (25.0-35.0) pg MCHC 34.9 (31.0-37.0) g/dL RDW 13.9 (11.5-15.5) % Plt Count 339 (150-450) k/uL Neutrophils % 81 % Lymphocytes % 13 % Monocytes % 4 % Eosinophils % 2 % Basophils % 0 % Neutrophils # 14.9 H (1.3-7.7) k/uL Lymphocytes # 2.3 (1.0-4.8) k/uL Monocytes # 0.7 (0-1.0) k/uL Eosinophils # 0.3 (0-0.7) k/uL Basophils # 0.1 (0-0.2) k/uL Sodium 134 L (137-145) mmol/L Potassium 4.7 (3.5-5.1) mmol/L Chloride 97 L (98-107) mmol/L Carbon Dioxide 25 (22-30) mmol/L Anion Gap 12 mmol/L BUN 19 (9-20) mg/dL Creatinine 0.50 L (0.66-1.25) mg/dL Est GFR (CKD-EPI)AfAm >90 (>60 ml/min/1.73 sqM) Est GFR (CKD-EPI)NonAf >90 (>60 ml/min/1.73 sqM) Glucose 450 H (74-99) mg/dL POC Glucose (mg/dL) (75-99) mg/dL POC Glu [facility] Research Associate ID Plasma Lactic Acid Len 0.9 (0.7-2.0) mmol/L Calcium 9.3 (8.4-10.2) mg/dL Total Bilirubin 0.8 (0.2-1.3) mg/dL AST 21 (17-59) U/L ALT 45 (21-72) U/L Alkaline Phosphatase 119 (38-126) U/L Total Protein 6.8 (6.3-8.2) g/dL Albumin 4.5 (3.5-5.0) g/dL Urine Color Urine Appearance (Clear) Urine pH (5.0-8.0) Ur Specific [place] (1.001-1.035) Urine Protein (Negative) Urine Glucose (UA) (Negative) Urine Ketones (Negative) Urine Blood (Negative) Urine Nitrite (Negative) Urine Bilirubin (Negative) Urine Urobilinogen (<2.0) mg/dL Ur Leukocyte Esterase (Negative) Urine Opiates Screen (NotDetected) Ur Oxycodone Screen (NotDetected) Urine Methadone Screen (NotDetected) Ur Propoxyphene Screen (NotDetected) Ur Barbiturates Screen (NotDetected) U Tricyclic Antidepress (NotDetected) Ur Phencyclidine Scrn (NotDetected) Ur Amphetamines Screen (NotDetected) U Methamphetamines Scrn (NotDetected) U Benzodiazepines Scrn (NotDetected) Urine Cocaine Screen (NotDetected) U Marijuana (THC) Screen (NotDetected) Acetone, Qual Positive (Negative) 10/04/18 10/04/18 10/04/18 Range/Units 04:31 05:46 07:18 WBC (3.8-10.6) k/uL RBC (4.30-5.90) m/uL Hgb (13.0-17.5) gm/dL Hct (39.0-53.0) % MCV (80.0-100.0) fL MCH (25.0-35.0) pg MCHC (31.0-37.0) g/dL RDW (11.5-15.5) % Plt Count (150-450) k/uL Neutrophils % % Lymphocytes % % Monocytes % % Eosinophils % % Basophils % % Neutrophils # (1.3-7.7) k/uL Lymphocytes # (1.0-4.8) k/uL Monocytes # (0-1.0) k/uL Eosinophils # (0-0.7) k/uL Basophils # (0-0.2) k/uL Sodium (137-145) mmol/L Potassium (3.5-5.1) mmol/L Chloride (98-107) mmol/L Carbon Dioxide (22-30) mmol/L Anion Gap mmol/L BUN (9-20) mg/dL Creatinine (0.66-1.25) mg/dL Est GFR (CKD-EPI)AfAm (>60 ml/min/1.73 sqM) Est GFR (CKD-EPI)NonAf (>60 ml/min/1.73 sqM) Glucose (74-99) mg/dL POC Glucose (mg/dL) 376 H 365 H 366 H (75-99) mg/dL POC Glu [facility] [employer] Brenda Waldron, Audrey Dorado, Michelle Plasma Lactic Acid Len (0.7-2.0) mmol/L Calcium (8.4-10.2) mg/dL Total Bilirubin (0.2-1.3) mg/dL AST (17-59) U/L ALT (21-72) U/L Alkaline Phosphatase (38-126) U/L Total Protein (6.3-8.2) g/dL Albumin (3.5-5.0) g/dL Urine Color Urine Appearance (Clear) Urine pH (5.0-8.0) Ur Specific [place] (1.001-1.035) Urine Protein (Negative) Urine Glucose (UA) (Negative) Urine Ketones (Negative) Urine Blood (Negative) Urine Nitrite (Negative) Urine Bilirubin (Negative) Urine Urobilinogen (<2.0) mg/dL Ur Leukocyte Esterase (Negative) Urine Opiates Screen (NotDetected) Ur Oxycodone Screen (NotDetected) Urine Methadone Screen (NotDetected) Ur Propoxyphene Screen (NotDetected) Ur Barbiturates Screen (NotDetected) U Tricyclic Antidepress (NotDetected) Ur Phencyclidine Scrn (NotDetected) Ur Amphetamines Screen (NotDetected) U Methamphetamines Scrn (NotDetected) U Benzodiazepines Scrn (NotDetected) Urine Cocaine Screen (NotDetected) U Marijuana (THC) Screen (NotDetected) Acetone, Qual (Negative) 10/04/18 Range/Units 08:32 WBC (3.8-10.6) k/uL RBC (4.30-5.90) m/uL Hgb (13.0-17.5) gm/dL Hct (39.0-53.0) % MCV (80.0-100.0) fL MCH (25.0-35.0) pg MCHC (31.0-37.0) g/dL RDW (11.5-15.5) % Plt Count (150-450) k/uL Neutrophils % % Lymphocytes % % Monocytes % % Eosinophils % % Basophils % % Neutrophils # (1.3-7.7) k/uL Lymphocytes # (1.0-4.8) k/uL Monocytes # (0-1.0) k/uL Eosinophils # (0-0.7) k/uL Basophils # (0-0.2) k/uL Sodium (137-145) mmol/L Potassium (3.5-5.1) mmol/L Chloride (98-107) mmol/L Carbon Dioxide (22-30) mmol/L Anion Gap mmol/L BUN (9-20) mg/dL Creatinine (0.66-1.25) mg/dL Est GFR (CKD-EPI)AfAm (>60 ml/min/1.73 sqM) Est GFR (CKD-EPI)NonAf (>60 ml/min/1.73 sqM) Glucose (74-99) mg/dL POC Glucose (mg/dL) 283 H (75-99) mg/dL POC Glu [facility] Clinical Research Associate ID Francisca Hill Plasma Lactic Acid Len (0.7-2.0) mmol/L Calcium (8.4-10.2) mg/dL Total Bilirubin (0.2-1.3) mg/dL AST (17-59) U/L ALT (21-72) U/L Alkaline Phosphatase (38-126) U/L Total Protein (6.3-8.2) g/dL Albumin (3.5-5.0) g/dL Urine Color Urine Appearance (Clear) Urine pH (5.0-8.0) Ur Specific [place] (1.001-1.035) Urine Protein (Negative) Urine Glucose (UA) (Negative) Urine Ketones (Negative) Urine Blood (Negative) Urine Nitrite (Negative) Urine Bilirubin (Negative) Urine Urobilinogen (<2.0) mg/dL Ur Leukocyte Esterase (Negative) Urine Opiates Screen (NotDetected) Ur Oxycodone Screen (NotDetected) Urine Methadone Screen (NotDetected) Ur Propoxyphene Screen (NotDetected) Ur Barbiturates Screen (NotDetected) U Tricyclic Antidepress (NotDetected) Ur Phencyclidine Scrn (NotDetected) Ur Amphetamines Screen (NotDetected) U Methamphetamines Scrn (NotDetected) U Benzodiazepines Scrn (NotDetected) Urine Cocaine Screen (NotDetected) U Marijuana (THC) Screen (NotDetected) Acetone, Qual (Negative) Disposition Clinical Impression: Major depressive disorder, recurrent, Depression, Hyperglycemia Disposition: TRANSFER TO PSYCH HOSP/UNIT Condition: Serious
[2018-10-04] MEDS ORDERED: SODIUM CHLORIDE 0.9% 1,000 ML IV ONE (02:10)
[2018-10-04] MEDS ORDERED: SODIUM CHLORIDE 0.9% 500 ML 500 ML IV ONE (02:10)
[2018-10-04 02:24] LABS: Amphetamine Screen,Urine Not Detected (NotDetected); Barbiturate Screen,Urine Not Detected (NotDetected); Benzodiazepines Screen,Urine Not Detected (NotDetected); Cocaine Screen,Urine Not Detected (NotDetected); Methadone Screen, Urine Not Detected (NotDetected); Opiate Screen,Urine Not Detected (NotDetected); Oxycodone Screen, Urine Not Detected (NotDetected); Phencyclidine Screen,Urine Not Detected (NotDetected); Tricyclic Antidepressant,Urine Not Detected (NotDetected); Urn Cannabinoid Scrn Detected (NotDetected)
[2018-10-04 02:34] LABS: Glucose,Whole Blood 521 mg/dL (75-99)
[2018-10-04 03:24] LABS: Appearance,Urine Clear (Clear); Bilirubin,Urine Negative (Negative); Blood,Urine Negative (Negative); Color,Urine Colorless; Glucose,Urine (UA) 4+ (Negative); Leukocyte Esterase,Urine Negative (Negative); Nitrite,Urine Negative (Negative); Protein,Urine Negative (Negative); Specific Gravity,Urine 1.041 (1.001-1.035); Urobilinogen,Urine <2.0 mg/dL (<2.0)
[2018-10-04 03:25] LABS: Basophils # (A) 0.1 k/uL (0-0.2); Basophils % (A) 0 %; Eosinophils # (A) 0.3 k/uL (0-0.7); Eosinophils % (A) 2 %; HCT 46.8 % (39.0-53.0); HGB 16.3 gm/dL (13.0-17.5); Lymphocytes # (A) 2.3 k/uL (1.0-4.8); Lymphocytes % (A) 13 %; MCH 31.7 pg (25.0-35.0); MCHC 34.9 g/dL (31.0-37.0); MCV 90.7 fL (80.0-100.0); Mean Platelet Volume 6.9; Monocytes # (A) 0.7 k/uL (0-1.0); Monocytes % (A) 4 %; Neutrophils # (A) 14.9 k/uL (1.3-7.7); Neutrophils % (A) 81 %; Platelet Count 339 k/uL (150-450); RBC 5.15 m/uL (4.30-5.90); RDW 13.9 % (11.5-15.5); WBC 18.5 k/uL (3.8-10.6)
[2018-10-04 03:31] LABS: Ketones,Urine 3+ (Negative)
[2018-10-04 03:32] LABS: ALT 45 U/L (21-72); AST 21 U/L (17-59); Albumin 4.5 g/dL (3.5-5.0); Alkaline Phosphatase 119 U/L (38-126); Anion Gap 12 mmol/L; Blood Urea Nitrogen 19 mg/dL (9-20); Calcium 9.3 mg/dL (8.4-10.2); Carbon Dioxide 25 mmol/L (22-30); Chloride 97 mmol/L (98-107); Glucose 450 mg/dL (74-99); Potassium 4.7 mmol/L (3.5-5.1); Sodium 134 mmol/L (137-145); Total Bilirubin 0.8 mg/dL (0.2-1.3); Total Protein 6.8 g/dL (6.3-8.2)
[2018-10-04] MEDS ORDERED: INSULIN REGULAR 100 UNIT/ML VIAL SQ ONE (03:53)
[2018-10-04 04:33] LABS: Glucose,Whole Blood 376 mg/dL (75-99)
[2018-10-04] MEDS ORDERED: LOPERAMIDE 2 MG CAP PO STA (04:36)
[2018-10-04 05:50] LABS: Glucose,Whole Blood 365 mg/dL (75-99)
[2018-10-04] MEDS: INSULIN ASPART (NovoLOG) 100 UNIT/ML VIAL SQ SCH ×7 (07:35→21:29)
[2018-10-04 07:47] LABS: Glucose,Whole Blood 366 mg/dL (75-99)
[2018-10-04 08:34] LABS: Glucose,Whole Blood 283 mg/dL (75-99)
[2018-10-04] MEDS ORDERED: MAGNESIUM HYDROXIDE 2,400 MG/10 ML CUP PO PRN (10:58)
[2018-10-04] MEDS ORDERED: MAG HYDROX/AL HYDROX/SIMETH 30 ML CUP PO PRN (10:58)
[2018-10-04] MEDS ORDERED: ACETAMINOPHEN TAB 325 MG TAB PO PRN (10:58)
[2018-10-04 12:57] LABS: Glucose,Whole Blood 245 mg/dL (75-99)
[2018-10-04 17:28] LABS: Glucose,Whole Blood 276 mg/dL (75-99)
[2018-10-04 20:15] LABS: Glucose,Whole Blood 385 mg/dL (75-99)
[2018-10-04] MEDS ORDERED: INSULIN DETEMIR (LEVEMIR) 100 UNIT/ML SYR SQ SCH (21:00)
[2018-10-05 03:15] LABS: Glucose,Whole Blood 172 mg/dL (75-99)
--- NOTE | 2018-10-05 05:39 | CONS ---
CONSULTATION CHIEF COMPLAINT: Major depression with suicidal ideation. HISTORY OF PRESENT ILLNESS: This is another admission for this 23-year-old white male, type 1 insulin-dependent diabetic, who has been having severe major depressive issues. He does not take care of himself and does not take insulin properly. He started to get increasingly depressed and thought about killing himself by overdosing with his insulin. REVIEW OF SYSTEMS: He has no other complaints or problems. Past medical history, family history, and personal and social histories are otherwise unchanged from his recent admitting and discharge summaries are unremarkable. Blood sugars are in the high 300s or 400s. PHYSICAL EXAMINATION: Blood pressure is 115/74 with the pulse of 76, respirations of 33. He is afebrile. In general, he appeared to be depressed. Skin color is normal. Head, ears, eyes, nose, mouth, and throat were normal. Chest is clear. Cardiac exam is normal. Abdomen is soft and nontender. Extremities are normal. Neurologically, he is intact. IMPRESSION: 1. Major depression. 2. Poorly controlled type 1 insulin-dependent diabetes mellitus. RECOMMENDATIONS: None at this time. He was, once again, admonished to take his insulin properly. MMODL / IJN: [id number] /
[2018-10-05 06:56] LABS: Glucose,Whole Blood 82 mg/dL (75-99)
[2018-10-05 07:43] LABS: Glucose,Whole Blood 210 mg/dL (75-99)
[2018-10-05] MEDS: INSULIN ASPART (NovoLOG) 100 UNIT/ML VIAL SQ SCH ×7 (08:49→21:22)
[2018-10-05 12:59] LABS: Glucose,Whole Blood 333 mg/dL (75-99)
[2018-10-05 14:56] LABS: Basophils % (A) 1 %; Eosinophils # (A) 0.2 k/uL (0-0.7); Eosinophils % (A) 3 %; HCT 46.5 % (39.0-53.0); HGB 15.7 gm/dL (13.0-17.5); Lymphocytes # (A) 2.4 k/uL (1.0-4.8); Lymphocytes % (A) 28 %; MCH 30.9 pg (25.0-35.0); MCHC 33.9 g/dL (31.0-37.0); MCV 91.2 fL (80.0-100.0); Mean Platelet Volume 6.5; Monocytes # (A) 0.5 k/uL (0-1.0); Monocytes % (A) 5 %; Neutrophils # (A) 5.2 k/uL (1.3-7.7); Neutrophils % (A) 62 %; Platelet Count 364 k/uL (150-450); RBC 5.09 m/uL (4.30-5.90); RDW 12.8 % (11.5-15.5); WBC 8.4 k/uL (3.8-10.6)
[2018-10-05 17:25] LABS: Glucose,Whole Blood 248 mg/dL (75-99)
[2018-10-05] MEDS: MEGESTROL 40 MG TAB PO SCH ×2 (18:13→21:24)
[2018-10-05 20:09] LABS: Glucose,Whole Blood 256 mg/dL (75-99)
[2018-10-05] MEDS ORDERED: lamoTRIgine 25 MG TAB PO SCH (21:00)
[2018-10-05] MEDS: INSULIN DETEMIR (LEVEMIR) 100 UNIT/ML SYR SQ SCH (21:23)
[2018-10-05] MEDS: FLUoxetine HCL 10 MG CAP PO SCH (21:24)
[2018-10-06 03:14] LABS: Glucose,Whole Blood 292 mg/dL (75-99)
[2018-10-06] MEDS: LORazepam 1 MG TAB PO PRN ×2 (04:14→22:59)
[2018-10-06] MEDS: LOPERAMIDE 2 MG CAP PO PRN ×3 (04:15→20:58)
[2018-10-06 06:37] LABS: Glucose,Whole Blood 211 mg/dL (75-99)
[2018-10-06] MEDS: INSULIN ASPART (NovoLOG) 100 UNIT/ML VIAL SQ SCH ×7 (07:53→20:58)
[2018-10-06] MEDS: MEGESTROL 40 MG TAB PO SCH ×4 (08:12→21:01)
[2018-10-06] MEDS: buPROPion XL 150 MG TAB.ER.24H PO SCH (08:12)
--- NOTE | 2018-10-06 12:18 | P.PN ---
Subjective Progress Note Date: 10/06/18 Principal diagnosis: Major depressive disorder severe with suicidal ideation 10/06/2018: Chart reviewed, discussed in team meeting this morning as well with social work. Interview with the patient feels that he still is sad and depressed hopeless helpless feels he is a failure and overwhelmed. He still rates his depression as 8 out of 10 and still has recurrent suicidal thoughts. He has a slight increase in his appetite. Objective - Vital Signs Vital signs: Vital Signs Temp 98.6 F 10/06/18 07:16 Pulse 101 H 10/06/18 07:16 Resp 16 10/06/18 07:16 BP 113/74 10/06/18 07:16 Pulse Ox 97 10/04/18 11:04 - Labs CBC & Chem 7: 10/05/18 14:17 10/04/18 03:10 Labs: Abnormal Lab Results - Last 24 Hours (Table) 10/05/18 10/05/18 10/05/18 Range/Units 12:54 17:23 19:56 POC Glucose (mg/dL) 333 H 248 H 256 H (75-99) mg/dL 10/06/18 10/06/18 Range/Units 03:09 06:27 POC Glucose (mg/dL) 292 H 211 H (75-99) mg/dL Assessment and Plan (1) Major depressive disorder, recurrent Narrative/Plan: Raul is a 23 yo male with PMH of depression who presents to the ER day for psychiatric evaluation. Patient states that he feels that he is a failure he is currently living on his sister's couch because he can't live on his own, he states that he lost his identification card has been having trouble getting 1 which makes everything is likely very difficult. Patient states he feels like anytime anything is going well his like just falls apart. Patient states he feels like it is constantly running into a brick wall and he doesn't feel like there is any hope for his like getting any better. Patient states that this evening he was thinking of suicide his plan was to overdose on insulin. Ever patient states that he has not been taking his insulin and hasn't checked his blood sugar in a while. Pt came to the ER with police d/t SI with a plan to OD on insulin. Upon arrival to the ER pt CBG was 521. Is now down to 376. Pt is very lethargic during assessment and marketing underwriter must repeatedly call his name 2-3 times for him to answer questions. Pt states he has not been taking any medications except for his insulin for the past "month or two." - Related Data Mental Status Examination - this is a 22-year-old male who lives with his sister. His mother is not in his life who lives with a roommate. He has not made any OUTPATIENT appointments at [facility]. He tried 3 jobs and was not successful two to the health General Appearance: [disheveled, appears stated age] Speech/Language: [slow,hesitant, soft, ] Attitude/Behavior: [withdrawn, indifferent] Mood: [depressed 8 out of 10, anxious 10 out of 10, hopelessness] Affect: [ flat, blunted constricted] Orientation: [Not oriented to time, but is person, place situation] Thought Content: [wnl Risk Factors: [He has had thoughts in the past but this was not a suicide attempt today denies suicidal (ideations, plan), and/or Homicidal (ideations, plan) Perception: [wnl, denies hallucinations (auditory, visual, tactile), other] Thought Processes: [goal-oriented he wants help and cannot get up from the [facility] to get an ID for him so that he can have follow-up care at [facility]. He has not been on any medications due to the fact he cannot have an ID Concentration/Attention Span: [impaired] [Per observation and interview with the patient] Recent Memory: [wnl Remote Memory: [wnl] [past events, as related history] Intelligence: [below average] [based on history, based on vocabulary, syntax, grammar, and content] Judgement: [poor] [per patient's behavior/history of present illness] Insight: [poor] [understanding severity of illness/history of present illness] Psychiatric impression: Major depressive disorder recurrent severe in nature and diabetes. J Current Visit: Yes Status: Chronic Priority: Low Code(s): F33.9 - MAJOR DEPRESSIVE DISORDER, RECURRENT, UNSPECIFIED SNOMED Code(s): 00870103 Time with Patient: Less than 30
[2018-10-06 12:29] LABS: Glucose,Whole Blood 237 mg/dL (75-99)
[2018-10-06 17:26] LABS: Glucose,Whole Blood 248 mg/dL (75-99)
[2018-10-06 20:07] LABS: Glucose,Whole Blood 154 mg/dL (75-99)
[2018-10-06] MEDS: INSULIN DETEMIR (LEVEMIR) 100 UNIT/ML SYR SQ SCH (20:59)
[2018-10-06] MEDS: FLUoxetine HCL 10 MG CAP PO SCH (21:00)
[2018-10-06] MEDS: lamoTRIgine 25 MG TAB PO SCH (21:01)
[2018-10-07 04:10] LABS: Glucose,Whole Blood 234 mg/dL (75-99)
[2018-10-07 06:29] LABS: Glucose,Whole Blood 124 mg/dL (75-99)
[2018-10-07] MEDS: buPROPion XL 150 MG TAB.ER.24H PO SCH (08:55)
[2018-10-07] MEDS: MEGESTROL 40 MG TAB PO SCH ×4 (08:55→21:46)
[2018-10-07] MEDS: INSULIN ASPART (NovoLOG) 100 UNIT/ML VIAL SQ SCH ×7 (08:55→20:11)
--- NOTE | 2018-10-07 12:12 | P.PN ---
Subjective Progress Note Date: 10/07/18 Principal diagnosis: Major depressive disorder severe with suicidal ideation 10/06/2018: Chart reviewed, discussed in team meeting this morning as well with social work. Interview with the patient feels that he still is sad and depressed hopeless helpless feels he is a failure and overwhelmed. He still rates his depression as 8 out of 10 and still has recurrent suicidal thoughts. He has a slight increase in his appetite. 10/07/2018: Chart reviewed and discussed in team meeting as well as his not signing an BIRGIT to talk to his sister. When talked to the patient in one-to-one interview I has been signing a BIRGIT with his sister so he can work on discharge and disposition. He still remains depressed and however he does have more of an appetite. He did go to one group and went back to lay down and wake him up at 12:00 to interview him. He does not have any suicidal thoughts today but is severely depressed hopeless helpless and overwhelmed. He denies any auditory or visual hallucinations Objective - Vital Signs Vital signs: Vital Signs Temp 97.6 F 10/07/18 04:46 Pulse 113 H 10/07/18 04:46 Resp 14 10/07/18 04:46 BP 127/91 10/07/18 04:46 Pulse Ox 97 10/04/18 11:04 - Labs CBC & Chem 7: 10/05/18 14:17 10/04/18 03:10 Labs: Abnormal Lab Results - Last 24 Hours (Table) 10/06/18 10/06/18 10/06/18 Range/Units 12:21 17:24 20:02 POC Glucose (mg/dL) 237 H 248 H 154 H (75-99) mg/dL 10/07/18 10/07/18 Range/Units 03:07 06:23 POC Glucose (mg/dL) 234 H 124 H (75-99) mg/dL Assessment and Plan (1) Major depressive disorder, recurrent Narrative/Plan: Raul is a 23 yo male with PMH of depression who presents to the ER day for psychiatric evaluation. Patient states that he feels that he is a failure he is currently living on his sister's couch because he can't live on his own, he states that he lost his identification card has been having trouble getting 1 which makes everything is likely very difficult. Patient states he feels like anytime anything is going well his like just falls apart. Patient states he feels like it is constantly running into a brick wall and he doesn't feel like there is any hope for his like getting any better. Patient states that this evening he was thinking of suicide his plan was to overdose on insulin. Ever patient states that he has not been taking his insulin and hasn't checked his blood sugar in a while. Pt came to the ER with police d/t SI with a plan to OD on insulin. Upon arrival to the ER pt CBG was 521. Is now down to 376. Pt is very lethargic during asses sment and fiction and nonfiction prose writer must repeatedly call his name 2-3 times for him to answer questions. Pt states he has not been taking any medications except for his insulin for the past "month or two." - Related Data Mental Status Examination - this is a 22-year-old male who lives with his sister. His mother is not in his life who lives with a roommate. He has not made any OUTPATIENT appointments at [facility]. He tried 3 jobs and was not successful two to the health General Appearance: [disheveled, appears stated age] Speech/Language: [slow,hesitant, soft, ] Attitude/Behavior: [withdrawn, indifferent] Mood: [depressed 8 out of 10, anxious 10 out of 10, hopelessness] Affect: [ flat, blunted constricted] Orientation: [Not oriented to time, but is person, place situation] Thought Content: [wnl Risk Factors: [He has had thoughts in the past but this was not a suicide attempt today denies suicidal (ideations, plan), and/or Homicidal (ideations, plan) Perception: [wnl, denies hallucinations (auditory, visual, tactile), other] Thought Processes: [goal-oriented he wants help and cannot get up from the [facility] to get an ID for him so that he can have follow-up care at [facility]. He has not been on any medications due to the fact he cannot have an ID Concentration/Attention Span: [impaired] [Per observation and interview with the patient] Recent Memory: [wnl Remote Memory: [wnl] [past events, as related history] Intelligence: [below average] [based on history, based on vocabulary, syntax, grammar, and content] Judgement: [poor] [per patient's behavior/history of present illness] Insight: [poor] [understanding severity of illness/history of present illness] Psychiatric impression: Major depressive disorder recurrent severe in nature and diabetes. 10/07/2018: Patient remains on 15 minute checks. He's had an increase in his Lamictal and increase of his Wellbutrin to 300 mg by mouth every morning. Encouraged to sign thought BIRGIT for his sister. His appetite is increased with increase of Megace and will follow observed for further titration of medication as needed. J Current Visit: Yes Status: Chronic Priority: Low Code(s): F33.9 - MAJOR DEPRESSIVE DISORDER, RECURRENT, UNSPECIFIED SNOMED Code(s): 25549371 Time with Patient: Less than 30
[2018-10-07 12:34] LABS: Glucose,Whole Blood 246 mg/dL (75-99)
[2018-10-07 17:30] LABS: Glucose,Whole Blood 212 mg/dL (75-99)
[2018-10-07 19:59] LABS: Glucose,Whole Blood 219 mg/dL (75-99)
[2018-10-07] MEDS ORDERED: INSULIN DETEMIR (LEVEMIR) 100 UNIT/ML SYR SQ SCH (21:00)
[2018-10-07] MEDS: lamoTRIgine 25 MG TAB PO SCH (21:46)
[2018-10-07] MEDS: FLUoxetine HCL 10 MG CAP PO SCH (21:46)
[2018-10-07] MEDS: LORazepam 1 MG TAB PO PRN (21:47)
[2018-10-08 04:01] LABS: Glucose,Whole Blood 211 mg/dL (75-99)
[2018-10-08] MEDS: LORazepam 1 MG TAB PO PRN ×2 (05:05→22:49)
[2018-10-08] MEDS: LOPERAMIDE 2 MG CAP PO PRN (05:05)
[2018-10-08 06:48] LABS: Glucose,Whole Blood 293 mg/dL (75-99)
[2018-10-08] MEDS: INSULIN ASPART (NovoLOG) 100 UNIT/ML VIAL SQ SCH ×7 (08:46→20:00)
[2018-10-08] MEDS: MEGESTROL 40 MG TAB PO SCH ×4 (08:46→21:01)
[2018-10-08] MEDS: buPROPion XL 300 MG TAB.ER.24H PO SCH (08:46)
[2018-10-08 10:41] VITALS: BMI 16.3
[2018-10-08 12:25] LABS: Glucose,Whole Blood 107 mg/dL (75-99)
--- NOTE | 2018-10-08 13:12 | P.PN ---
Subjective Progress Note Date: 10/08/18 Principal diagnosis: Major depressive disorder severe with suicidal ideation 10/06/2018: Chart reviewed, discussed in team meeting this morning as well with social work. Interview with the patient feels that he still is sad and depressed hopeless helpless feels he is a failure and overwhelmed. He still rates his depression as 8 out of 10 and still has recurrent suicidal thoughts. He has a slight increase in his appetite. 10/07/2018: Chart reviewed and discussed in team meeting as well as his not signing an BIRGIT to talk to his sister. When talked to the patient in one-to-one interview I has been signing a BIRGIT with his sister so he can work on discharge and disposition. He still remains depressed and however he does have more of an appetite. He did go to one group and went back to lay down and wake him up at 12:00 to interview him. He does not have any suicidal thoughts today but is severely depressed hopeless helpless and overwhelmed. He denies any auditory or visual hallucinations. 10/08/2018: Chart reviewed, discussed in treatment team today and he did sign an BIRGIT to talk to his sister and a family meeting is set for Friday. When interviewed the patient states that his depression and still 8 out of 10 with occasional thoughts of low self-esteem generating thoughts of suicide. He is grateful that her attention is being addressed to his diet and is looking forward to returning to his sister's. He denies any auditory or visual hallucinations. Objective - Vital Signs Vital signs: Vital Signs Temp 98 F 10/08/18 05:05 Pulse 121 H 10/08/18 05:05 Resp 18 10/08/18 05:05 BP 124/89 10/08/18 05:05 Pulse Ox 97 10/04/18 11:04 Intake & Output 10/07/18 10/08/18 10/08/18 18:59 06:59 18:59 Weight 59.421 kg - Labs CBC & Chem 7: 10/05/18 14:17 10/04/18 03:10 Labs: Abnormal Lab Results - Last 24 Hours (Table) 10/07/18 10/07/18 10/08/18 Range/Units 17:27 19:58 03:59 POC Glucose (mg/dL) 212 H 219 H 211 H (75-99) mg/dL 10/08/18 10/08/18 Range/Units 06:44 12:23 POC Glucose (mg/dL) 293 H 107 H (75-99) mg/dL Assessment and Plan (1) Major depressive disorder, recurrent Narrative/Plan: Raul is a 23 yo male with PMH of depression who presents to the ER day for psychiatric evaluation. Patient states that he feels that he is a failure he is currently living on his sister's couch because he can't live on his own, he states that he lost his identification card has been having trouble getting 1 which makes everything is likely very difficult. Patient states he feels like anytime anything is going well his like just falls apart. Patient states he feels like it is constantly running into a brick wall and he doesn't feel like there is any hope for his like getting any better. Patient states that this evening he was thinking of suicide his plan was to overdose on insulin. Ever patient states that he has not been taking his insulin and hasn't checked his blood sugar in a while. Pt came to the ER with police d/t SI with a plan to OD on insulin. Upon arrival to the ER pt CBG was 521. Is now down to 376. Pt is very lethargic during assessment and bond writer must repeatedly call his name 2-3 times for him to answer questions. Pt states he has not been taking any medications except for his insulin for the past "month or two." - Related Data Mental Status Examination - this is a 22-year-old male who lives with his sister. His mother is not in his life who lives with a roommate. He has not made any OUTPATIENT appointments at [facility]. He tried 3 jobs and was not successful two to the health General Appearance: [disheveled, appears stated age] Speech/Language: [slow,hesitant, soft, ] Attitude/Behavior: [withdrawn, indifferent] Mood: [depressed 8 out of 10, anxious 10 out of 10, hopelessness] Affect: [ flat, blunted constricted] Orientation: [Not oriented to time, but is person, place situation] Thought Content: [wnl Risk Factors: [He has had thoughts in the past but this was not a suicide att empt today denies suicidal (ideations, plan), and/or Homicidal (ideations, plan) Perception: [wnl, denies hallucinations (auditory, visual, tactile), other] Thought Processes: [goal-oriented he wants help and cannot get up from the [facility] to get an ID for him so that he can have follow-up care at [facility]. He has not been on any medications due to the fact he cannot have an ID Concentration/Attention Span: [impaired] [Per observation and interview with the patient] Recent Memory: [wnl Remote Memory: [wnl] [past events, as related history] Intelligence: [below average] [based on history, based on vocabulary, syntax, grammar, and content] Judgement: [poor] [per patient's behavior/history of present illness] Insight: [poor] [understanding severity of illness/history of present illness] Psychiatric impression: Major depressive disorder recurrent severe in nature and diabetes. 10/07/2018: Patient remains on 15 minute checks. He's had an increase in his Lamictal and increase of his Wellbutrin to 300 mg by mouth every morning. Encouraged to sign thought BIRGIT for his sister. His appetite is increased with increase of Megace and will follow observed for further titration of medication as needed. 10/08/2018: Patient remains on 15 minute checks. Have increased his Lamictal 100 mg and will maintain his Wellbutrin at 300 mg by mouth every morning. He also has an increase of Prozac to 40 mg by mouth every morning for his continued depression. Discussed details on how to cope with his feelings of being a failure and encouraged him to participate in groups. He still is rather withdrawn but tends to associate with peers in the [facility] environment. J Current Visit: Yes Status: Chronic Priority: Low Code(s): F33.9 - MAJOR DEPRESSIVE DISORDER, RECURRENT, UNSPECIFIED SNOMED Code(s): 36937168 Time with Patient: Less than 30
[2018-10-08 17:32] LABS: Glucose,Whole Blood 203 mg/dL (75-99)
[2018-10-08 19:42] LABS: Glucose,Whole Blood 219 mg/dL (75-99)
[2018-10-08] MEDS: INSULIN DETEMIR (LEVEMIR) 100 UNIT/ML SYR SQ SCH (20:00)
[2018-10-08] MEDS: lamoTRIgine 100 MG TAB PO SCH (21:01)
[2018-10-09 03:16] LABS: Glucose,Whole Blood 192 mg/dL (75-99)
[2018-10-09 07:02] LABS: Glucose,Whole Blood 110 mg/dL (75-99)
[2018-10-09] MEDS: INSULIN ASPART (NovoLOG) 100 UNIT/ML VIAL SQ SCH ×7 (07:43→20:47)
[2018-10-09] MEDS: MEGESTROL 40 MG TAB PO SCH ×4 (08:41→20:50)
[2018-10-09] MEDS: FLUoxetine HCL 20 MG CAP PO SCH (08:41)
[2018-10-09] MEDS: buPROPion XL 300 MG TAB.ER.24H PO SCH (08:41)
--- NOTE | 2018-10-09 11:35 | P.PN ---
Subjective Progress Note Date: 10/09/18 Principal diagnosis: Major depressive disorder severe with suicidal ideation 10/06/2018: Chart reviewed, discussed in team meeting this morning as well with social work. Interview with the patient feels that he still is sad and depressed hopeless helpless feels he is a failure and overwhelmed. He still rates his depression as 8 out of 10 and still has recurrent suicidal thoughts. He has a slight increase in his appetite. 10/07/2018: Chart reviewed and discussed in team meeting as well as his not signing an BIRGIT to talk to his sister. When talked to the patient in one-to-one interview I has been signing a BIRGIT with his sister so he can work on discharge and disposition. He still remains depressed and however he does have more of an appetite. He did go to one group and went back to lay down and wake him up at 12:00 to interview him. He does not have any suicidal thoughts today but is severely depressed hopeless helpless and overwhelmed. He denies any auditory or visual hallucinations. 10/08/2018: Chart reviewed, discussed in treatment team today and he did sign an BIRGIT to talk to his sister and a family meeting is set for Friday. When interviewed the patient states that his depression and still 8 out of 10 with occasional thoughts of low self-esteem generating thoughts of suicide. He is grateful that her attention is being addressed to his diet and is looking forward to returning to his sister's. He denies any auditory or visual hallucinations. 10/09/2018 chart reviewed, discussed with nursing staff, discussed with social work regards to a family meeting coming up on Friday. Patient denies any suicidal homicidal ideation. He does state that his depression as 7 out of 10 with fewer thoughts of suicide, period Objective - Vital Signs Vital signs: Vital Signs Temp 98.0 F 10/09/18 05:11 Pulse 104 H 10/09/18 05:11 Resp 16 10/09/18 05:11 BP 133/94 10/09/18 05:11 Pulse Ox 97 10/04/18 11:04 Intake & Output 10/08/18 10/09/18 10/09/18 18:59 06:59 18:59 Weight 59.421 kg - Labs CBC & Chem 7: 10/05/18 14:17 10/04/18 03:10 Labs: Abnormal Lab Results - Last 24 Hours (Table) 10/08/18 10/08/18 10/08/18 Range/Units 12:23 17:29 19:41 POC Glucose (mg/dL) 107 H 203 H 219 H (75-99) mg/dL 10/09/18 10/09/18 Range/Units 03:10 07:00 POC Glucose (mg/dL) 192 H 110 H (75-99) mg/dL Assessment and Plan (1) Major depressive disorder, recurrent Narrative/Plan: Raul is a 23 yo male with PMH of depression who presents to the ER day for psychiatric evaluation. Patient states that he feels that he is a failure he is currently living on his sister's couch because he can't live on his own, he states that he lost his identification card has been having trouble getting 1 which makes everything is likely very difficult. Patient states he feels like anytime anything is going well his like just falls apart. Patient states he feels like it is constantly running into a brick wall and he doesn't feel like there is any hope for his like getting any better. Patient states that this evening he was thinking of suicide his plan was to overdose on insulin. Ever patient states that he has not been taking his insulin and hasn't checked his blood sugar in a while. Pt came to the ER with police d/t SI with a plan to OD on insulin. Upon arrival to the ER pt CBG was 521. Is now down to 376. Pt is very lethargic during assessment and service writer must repeatedly call his name 2-3 times for him to answer questions. Pt states he has not been taking any medications except for his insulin for the past "month or two." - Related Data Mental Status Examination - this is a 22-year-old male who lives with his sister. His mother is not in his life who lives with a roommate. He has not made any OUTPATIENT appointments at [facility]. He tried 3 jobs and was not successful two to the health General Appearance: [disheveled, appears stated age] Speech/Language: [slow,hesitant, soft, ] Attitude/Behavior: [withdrawn, indifferent] Mood: [depressed 8 out of 10, anxious 10 out of 10, hopelessness] Affect: [ flat, blunted constricted] Orientation: [Not oriented to time, but is person, place situation] Thought Content: [wnl Risk Factors: [He has had thoughts in the past but this was not a suicide attempt today denies suicidal (ideations, plan), and/or Homicidal (ideations, plan) Perception: [wnl, denies hallucinations (auditory, visual, tactile), other] Thought Processes: [goal-oriented he wants help and cannot get up from the [facility] to get an ID for him so that he can have follow-up care at [facility]. He has not been on any medications due to the fact he cannot have an ID Concentration/Attention Span: [impaired] [Per observation and interview with the patient] Recent Memory: [wnl Remote Memory: [wnl] [past events, as related history] Intelligence: [below average] [based on history, based on vocabulary, syntax, grammar, and content] Judgement: [poor] [per patient's behavior/history of present illness] Insight: [poor] [understanding severity of illness/history of present illness] Psychiatric impression: Major depressive disorder recurrent severe in nature and diabetes. 10/07/2018: Patient remains on 15 minute checks. He's had an increase in his Lamictal and increase of his Wellbutrin to 300 mg by mouth every morning. Encouraged to sign thought BIRGIT for his sister. His appetite is increased with increase of Megace and will follow observed for further titration of medication as needed. 10/08/2018: Patient remains on 15 minute checks. Have increased his Lamictal 100 mg and will maintain his Wellbutrin at 300 mg by mouth every morning. He also has an increase of Prozac to 40 mg by mouth every morning for his continued depression. Discussed details on how to cope with his feelings of being a failure and encouraged him to participate in groups. He still is rather withdrawn but tends to associate with peers in the [facility] therapeutic environment. 10/09/2018: Patient remains on 15 minute checks. Appears to be more interactive with the group. Increased his Lamictal 100 mg twice a day and maintain his Wellbutrin 300 mg in the morning. He was also increased to 40 mg of Prozac and appears by questioning that his depression has gone down and he is eating more at the present time. A family meeting is planned for this weekend. J Current Visit: Yes Status: Chronic Priority: Low Code(s): F33.9 - MAJOR DEPRESSIVE DISORDER, RECURRENT, UNSPECIFIED SNOMED Code(s): 79681114 Time with Patient: Less than 30
[2018-10-09 12:40] LABS: Glucose,Whole Blood 292 mg/dL (75-99)
[2018-10-09 17:49] LABS: Glucose,Whole Blood 220 mg/dL (75-99)
[2018-10-09 20:02] LABS: Glucose,Whole Blood 203 mg/dL (75-99)
[2018-10-09] MEDS: lamoTRIgine 100 MG TAB PO SCH (20:47)
[2018-10-09] MEDS: INSULIN DETEMIR (LEVEMIR) 100 UNIT/ML SYR SQ SCH (20:48)
[2018-10-09] MEDS: LORazepam 1 MG TAB PO PRN (22:24)
[2018-10-10 03:14] LABS: Glucose,Whole Blood 202 mg/dL (75-99)
[2018-10-10 06:23] LABS: Glucose,Whole Blood 147 mg/dL (75-99)
[2018-10-10] MEDS: FLUoxetine HCL 20 MG CAP PO SCH (08:15)
[2018-10-10] MEDS: buPROPion XL 300 MG TAB.ER.24H PO SCH (08:15)
[2018-10-10] MEDS: MEGESTROL 40 MG TAB PO SCH ×4 (08:15→20:16)
[2018-10-10] MEDS: lamoTRIgine 100 MG TAB PO SCH ×3 (08:16→20:13)
--- NOTE | 2018-10-10 08:52 | P.PN ---
Progress Note - Text Interval history: The patient is found in the hallway he follows me to an interview room. He indicates that his mood is getting better day by day. He presented with suicidal thoughts. He reports he felt overwhelmed by his unemployment and unable to keep up with his finances. He plans on residing with his sister and her boyfriend upon discharge. He verbalizes a goal of obtaining employment getting his own place etc. He states he is trying to do better with his diet in order to manage his blood sugars better. He has been attending groups. He is anticipating a visit from his father this evening. Mental status exam: The patient is a thin male appearing his stated age. He is dressed in his own clothing hygiene grooming are good. Speech is fluent spontaneous nonpressured. He reports his mood is improving. He feels safe here in the hospital he is reporting no acute suicidal ideation intent or plan. He reports no thoughts of harming others. He endorses no auditory or visual hallucinations or any specific delusions. He demonstrates no tangential thinking this associations or flight of ideas he does not appear hypomanic or manic. Insight and judgment improving. He is oriented to person place and date. He demonstrates no verbal or physical aggressiveness. Plan: The patient will continue on his current psychotropic medications. It appears he is clinically stabilizing. He anticipates being discharged Friday. Vital signs reviewed. We will continue to monitor him for safety and encourage participation in the milieu.
[2018-10-10] MEDS: INSULIN ASPART (NovoLOG) 100 UNIT/ML VIAL SQ SCH ×7 (08:53→20:14)
[2018-10-10 12:13] LABS: Glucose,Whole Blood 231 mg/dL (75-99)
[2018-10-10 17:23] LABS: Glucose,Whole Blood 246 mg/dL (75-99)
[2018-10-10 20:08] LABS: Glucose,Whole Blood 203 mg/dL (75-99)
[2018-10-10] MEDS: INSULIN DETEMIR (LEVEMIR) 100 UNIT/ML SYR SQ SCH (20:13)
[2018-10-10] MEDS: LORazepam 1 MG TAB PO PRN (23:20)
[2018-10-11 02:39] LABS: Glucose,Whole Blood 129 mg/dL (75-99)
[2018-10-11 07:00] LABS: Glucose,Whole Blood 179 mg/dL (75-99)
[2018-10-11] MEDS: MEGESTROL 40 MG TAB PO SCH ×4 (08:01→20:51)
[2018-10-11] MEDS: FLUoxetine HCL 20 MG CAP PO SCH (08:25)
[2018-10-11] MEDS: buPROPion XL 300 MG TAB.ER.24H PO SCH (08:25)
[2018-10-11] MEDS: lamoTRIgine 100 MG TAB PO SCH ×2 (08:25→20:46)
[2018-10-11] MEDS: INSULIN ASPART (NovoLOG) 100 UNIT/ML VIAL SQ SCH ×7 (08:28→20:47)
--- NOTE | 2018-10-11 10:24 | P.PN ---
Progress Note - Text Interval history: The patient is found in group he follows me to an interview room. He reports his mood is tired. He states he had some difficulty sleeping last night. We discussed this in detail. He has been attending groups. He has been speaking the family via phone and those have been supportive calls. He feels that he is eating better. Blood sugars are slowly improving. We reviewed his psychotropic medications. Mental status exam: The patient is a tall thin male appearing his stated age. He presents with adequate hygiene grooming. He is dressed in his own clothing. Eye contact is appropriate speech is fluent spontaneous nonpressured. Affect is constricted. He is reporting no suicidal or homicidal ideation intent or plan. He reports no auditory or visual hallucinations or any specific delusions. There is no observed evidence of psychosis. He does not appear hypomanic or manic. Insight and judgment improving. He remains oriented to person place and date. He demonstrates no verbal or physical aggressiveness. He demonstrates future oriented thinking as he speaks of employment that may be arranged by family. Plan: The patient will continue on his current medications. He is asking for something for sleep. We will avoid any habit-forming medication and trial doxepin 10 mg at bedtime. He states he's not able to use melatonin. Vital signs reviewed. One sugars reviewed. He is encouraged to continue participating in the milieu and we'll monitor him for safety.
[2018-10-11 12:44] LABS: Glucose,Whole Blood 215 mg/dL (75-99)
[2018-10-11 17:31] LABS: Glucose,Whole Blood 155 mg/dL (75-99)
[2018-10-11 20:07] LABS: Glucose,Whole Blood 168 mg/dL (75-99)
[2018-10-11] MEDS: INSULIN DETEMIR (LEVEMIR) 100 UNIT/ML SYR SQ SCH (20:47)
[2018-10-11] MEDS ORDERED: DOXEPIN 10 MG CAP PO SCH (21:00)
[2018-10-12 02:31] LABS: Glucose,Whole Blood 149 mg/dL (75-99)
[2018-10-12 06:03] LABS: Glucose,Whole Blood 94 mg/dL (75-99)
[2018-10-12] MEDS: INSULIN ASPART (NovoLOG) 100 UNIT/ML VIAL SQ SCH ×7 (07:51→21:06)
[2018-10-12] MEDS: lamoTRIgine 100 MG TAB PO SCH ×2 (08:15→21:08)
[2018-10-12] MEDS: FLUoxetine HCL 20 MG CAP PO SCH (08:15)
[2018-10-12] MEDS: MEGESTROL 40 MG TAB PO SCH ×4 (08:15→21:34)
[2018-10-12] MEDS: buPROPion XL 300 MG TAB.ER.24H PO SCH (08:15)
--- NOTE | 2018-10-12 12:34 | P.PN ---
Subjective Progress Note Date: 10/12/18 Principal diagnosis: Major depressive disorder severe with suicidal ideation 10/06/2018: Chart reviewed, discussed in team meeting this morning as well with social work. Interview with the patient feels that he still is sad and depressed hopeless helpless feels he is a failure and overwhelmed. He still rates his depression as 8 out of 10 and still has recurrent suicidal thoughts. He has a slight increase in his appetite. 10/07/2018: Chart reviewed and discussed in team meeting as well as his not signing an BIRGIT to talk to his sister. When talked to the patient in one-to-one interview I has been signing a BIRGIT with his sister so he can work on discharge and disposition. He still remains depressed and however he does have more of an appetite. He did go to one group and went back to lay down and wake him up at 12:00 to interview him. He does not have any suicidal thoughts today but is severely depressed hopeless helpless and overwhelmed. He denies any auditory or visual hallucinations. 10/08/2018: Chart reviewed, discussed in treatment team today and he did sign an BIRGIT to talk to his sister and a family meeting is set for Friday. When interviewed the patient states that his depression and still 8 out of 10 with occasional thoughts of low self-esteem generating thoughts of suicide. He is grateful that her attention is being addressed to his diet and is looking forward to returning to his sister's. He denies any auditory or visual hallucinations. 10/09/2018 chart reviewed, discussed with nursing staff, discussed with social work regards to a family meeting coming up on Friday. Patient denies any suicidal homicidal ideation. He does state that his depression as 7 out of 10 with fewer thoughts of suicide, period of 10/12/2018 chart reviewed and after we can call. Discussed with nursing staff and discussed in team with social work and occupational therapy. Sister visit went without difficulty. He denies any suicidal or homicidal ideation. He has disruption in sleep and his depression remains 5 out of 10 with fewer thoughts of suicide. He has had difficulty with sleep and doxepin did not improve and thus it was stopped Objective - Vital Signs Vital signs: Vital Signs Temp 98.2 F 10/12/18 03:25 Pulse 99 10/12/18 03:25 Resp 20 10/12/18 03:25 BP 126/74 10/12/18 03:25 Pulse Ox 97 10/04/18 11:04 Intake & Output 10/11/18 10/12/18 10/12/18 18:59 06:59 18:59 Weight 58.1 kg - Labs CBC & Chem 7: 10/05/18 14:17 10/04/18 03:10 Labs: Abnormal Lab Results - Last 24 Hours (Table) 10/11/18 10/11/18 10/11/18 Range/Units 12:25 17:29 20:03 POC Glucose (mg/dL) 215 H 155 H 168 H (75-99) mg/dL 10/12/18 Range/Units 02:26 POC Glucose (mg/dL) 149 H (75-99) mg/dL Assessment and Plan (1) Major depressive disorder, recurrent Narrative/Plan: Raul is a 23 yo male with PMH of depression who presents to the ER day for psychiatric evaluation. Patient states that he feels that he is a failure he is currently living on his sister's couch because he can't live on his own, he states that he lost his identification card has been having trouble getting 1 which makes everything is likely very difficult. Patient states he feels like anytime anything is going well his like just falls apart. Patient states he feels like it is constantly running into a brick wall and he doesn't feel like there is any hope for his like getting any better. Patient states that this evening he was thinking of suicide his plan was to overdose on insulin. Ever patient states that he has not been taking his insulin and hasn't checked his blood sugar in a while. Pt came to the ER with police d/t SI with a plan to OD on insulin. Upon arrival to the ER pt CBG was 521. Is now down to 376. Pt is very lethargic during assessment and underwriter mortgage loan must repeatedly call his name 2-3 times for him to answer questions. Pt states he has not been taking any medications except for his insulin for the past "month or two." - Related Data Mental Status Examination - this is a 22-year-old male who lives with his sister. His mother is not in his life who lives with a roommate. He has not made any OUTPATIENT appointments at [facility]. He tried 3 jobs and was not successful two to the health General Appearance: [disheveled, appears stated age] Speech/Language: [slow,hesitant, soft, ] Attitude/Behavior: [withdrawn, indifferent] Mood: [depressed 8 out of 10, anxious 10 out of 10, hopelessness] Affect: [ flat, blunted constricted] Orientation: [Not oriented to time, but is person, place situation] Thought Content: [wnl Risk Factors: [He has had thoughts in the past but this was not a suicide attempt today denies suicidal (ideations, plan), and/or Homicidal (ideations, plan) Perception: [wnl, denies hallucinations (auditory, visual, tactile), other] Thought Processes: [goal-oriented he wants help and cannot get up from the [facility] to get an ID for him so that he can have follow-up care at [facility]. He has not been on any medications due to the fact he cannot have an ID Concentration/Attention Span: [impaired] [Per observation and interview with the patient] Recent Memory: [wnl Remote Memory: [wnl] [past events, as related history] Intelligence: [below average] [based on history, based on vocabulary, syntax, grammar, and content] Judgement: [poor] [per patient's behavior/history of present illness] Insight: [poor] [understanding severity of illness/history of present illness] Psychiatric impression: Major depressive disorder recurrent severe in nature and diabetes. 10/07/2018: Patient remains on 15 minute checks. He's had an increase in his Lamictal and increase of his Wellbutrin to 300 mg by mouth every morning. Encouraged to sign thought BIRGIT for his sister. His appetite is increased with increase of Megace and will follow observed for further titration of medication as needed. 10/08/2018: Patient remains on 15 minute checks. Have increased his Lamictal 100 mg and will maintain his Wellbutrin at 300 mg by mouth every morning. He also has an increase of Prozac to 40 mg by mouth every morning for his continued depression. Discussed details on how to cope with his feelings of being a failure and encouraged him to participate in groups. He still is rather withdrawn but tends to associate with peers in the [facility] environment. 10/09/2018: Patient remains on 15 minute checks. Appears to be more interactive with the group. Increased his Lamictal 100 mg twice a day and maintain his Wellbutrin 300 mg in the morning. He was also increased to 40 mg of Prozac and appears by questioning that his depression has gone down and he is eating more at the present time. A family meeting is planned for this weekend. 10/12/2018: Patient remains on 15 minute checks. He looks lethargic and states the last 2 days he has not slept. Doxepin was added without any benefit and therefore was discontinued because it may affect his blood sugars. Increase his Lamictal today to 200 mg by mouth daily at bedtime. His Prozac remains at 40 mg daily daily. T3 and T4 levels were drawn to evaluate whether he has low T3 which may be valuable and augmenting Prozac and Lamictal for stabilization of his depression and energy. J Current Visit: Yes Status: Chronic Priority: Low Code(s): F33.9 - MAJOR DEPRESSIVE DISORDER, RECURRENT, UNSPECIFIED SNOMED Code(s): 00662947 Time with Patient: Greater than 30
[2018-10-12 12:58] LABS: Glucose,Whole Blood 176 mg/dL (75-99)
[2018-10-12 17:21] LABS: Glucose,Whole Blood 296 mg/dL (75-99)
[2018-10-12] MEDS: LOPERAMIDE 2 MG CAP PO PRN ×2 (18:56→22:09)
[2018-10-12 19:36] LABS: Glucose,Whole Blood 155 mg/dL (75-99)
[2018-10-12] MEDS: INSULIN DETEMIR (LEVEMIR) 100 UNIT/ML SYR SQ SCH (21:07)
[2018-10-12] MEDS: LORazepam 1 MG TAB PO PRN (21:08)
[2018-10-13 03:20] LABS: Glucose,Whole Blood 201 mg/dL (75-99)
[2018-10-13 03:34] VITALS: RESP 16
[2018-10-13 06:23] LABS: Glucose,Whole Blood 122 mg/dL (75-99)
[2018-10-13] MEDS: buPROPion XL 300 MG TAB.ER.24H PO SCH (08:31)
[2018-10-13] MEDS: INSULIN ASPART (NovoLOG) 100 UNIT/ML VIAL SQ SCH ×7 (08:31→20:29)
[2018-10-13] MEDS: MEGESTROL 40 MG TAB PO SCH ×4 (08:31→20:58)
[2018-10-13] MEDS: FLUoxetine HCL 20 MG CAP PO SCH (08:31)
[2018-10-13 12:38] LABS: Glucose,Whole Blood 240 mg/dL (75-99)
--- NOTE | 2018-10-13 12:46 | P.PN ---
Subjective Progress Note Date: 10/13/18 Principal diagnosis: Major depressive disorder severe with suicidal ideation 10/06/2018: Chart reviewed, discussed in team meeting this morning as well with social work. Interview with the patient feels that he still is sad and depressed hopeless helpless feels he is a failure and overwhelmed. He still rates his depression as 8 out of 10 and still has recurrent suicidal thoughts. He has a slight increase in his appetite. 10/07/2018: Chart reviewed and discussed in team meeting as well as his not signing an BIRGIT to talk to his sister. When talked to the patient in one-to-one interview I has been signing a BIRGIT with his sister so he can work on discharge and disposition. He still remains depressed and however he does have more of an appetite. He did go to one group and went back to lay down and wake him up at 12:00 to interview him. He does not have any suicidal thoughts today but is severely depressed hopeless helpless and overwhelmed. He denies any auditory or visual hallucinations. 10/08/2018: Chart reviewed, discussed in treatment team today and he did sign an BIRGIT to talk to his sister and a family meeting is set for Friday. When interviewed the patient states that his depression and still 8 out of 10 with occasional thoughts of low self-esteem generating thoughts of suicide. He is grateful that her attention is being addressed to his diet and is looking forward to returning to his sister's. He denies any auditory or visual hallucinations. 10/09/2018 chart reviewed, discussed with nursing staff, discussed with social work regards to a family meeting coming up on Friday. Patient denies any suicidal homicidal ideation. He does state that his depression as 7 out of 10 with fewer thoughts of suicide, period of 10/12/2018 chart reviewed and after we can call. Discussed with nursing staff and discussed in team with social work and occupational therapy. Sister visit went without difficulty. He denies any suicidal or homicidal ideation. He has disruption in sleep and his depression remains 5 out of 10 with fewer thoughts of suicide. He has had difficulty with sleep and doxepin did not improve and thus it was stopped 10/13/2018: Chart reviewed, discussed with team and social work and plan discharge for tomorrow 10/14/2018. He had sleep last night without any AV from medications and slept greater than 6 hours. Denies suicidal homicidal ideation denies auditory or visual hallucinations. He is less depressed and anxious to leave tomorrow because he has a job plan. Objective - Vital Signs Vital signs: Vital Signs Temp 98.6 F 10/13/18 03:33 Pulse 111 H 10/13/18 03:33 Resp 16 10/13/18 03:33 BP 121/76 10/13/18 03:33 Pulse Ox 97 10/04/18 11:04 - Labs CBC & Chem 7: 10/05/18 14:17 10/04/18 03:10 Labs: Abnormal Lab Results - Last 24 Hours (Table) 10/12/18 10/12/18 10/12/18 Range/Units 12:32 17:19 19:34 POC Glucose (mg/dL) 176 H 296 H 155 H (75-99) mg/dL 10/13/18 10/13/18 10/13/18 Range/Units 03:18 06:22 12:34 POC Glucose (mg/dL) 201 H 122 H 240 H (75-99) mg/dL Assessment and Plan (1) Major depressive disorder, recurrent Narrative/Plan: Raul is a 23 yo male with PMH of depression who presents to the ER day for psychiatric evaluation. Patient states that he feels that he is a failure he is currently living on his sister's couch because he can't live on his own, he states that he lost his identification card has been having trouble getting 1 which makes everything is likely very difficult. Patient states he feels like anytime anything is going well his like just falls apart. Patient states he feels like it is constantly running into a brick wall and he doesn't feel like there is any hope for his like getting any better. Patient states that this evening he was thinking of suicide his plan was to overdose on insulin. Ever patient states that he has not been taking his insulin and hasn't checked his blood sugar in a while. Pt came to the ER with police d/t SI with a plan to OD on insulin. Upon arrival to the ER pt CBG was 521. Is now down to 376. Pt is very lethargic during assessment and health technical writer must repeatedly call his name 2-3 times for him to answer questions. Pt states he has not been taking any medications except for his insulin for the past "month or two." - Related Data Mental Status Examination - this is a 22-year-old male who lives with his sister. His mother is not in his life who lives with a roommate. He has not made any OUTPATIENT appointments at [facility]. He tried 3 jobs and was not successful two to the health General Appearance: [disheveled, appears stated age] Speech/Language: [slow,hesitant, soft, ] Attitude/Behavior: [withdrawn, indifferent] Mood: [depressed 8 out of 10, anxious 10 out of 10, hopelessness] Affect: [ flat, blunted constricted] Orientation: [Not oriented to time, but is person, place situation] Thought Content: [wnl Risk Factors: [He has had thoughts in the past but this was not a suicide attempt today denies suicidal (ideations, plan), and/or Homicidal (ideations, plan) Perception: [wnl, denies hallucinations (auditory, visual, tactile), other] Thought Processes: [goal-oriented he wants help and cannot get up from the [facility] to get an ID for him so that he can have follow-up care at [facility]. He has not been on any medications due to the fact he cannot have an ID Concentration/Attention Span: [impaired] [Per observation and interview with the patient] Recent Memory: [wnl Remote Memory: [wnl] [past events, as related history] Intelligence: [below average] [based on history, based on vocabulary, syntax, grammar, and content] Judgement: [poor] [per patient's behavior/history of present illness] Insight: [poor] [understanding severity of illness/history of present illness] Psychiatric impression: Major depressive disorder recurrent severe in nature and diabetes. 10/07/2018: Patient remains on 15 minute checks. He's had an increase in his Lamictal and increase of his Wellbutrin to 300 mg by mouth every morning. Encouraged to sign thought BIRGIT for his sister. His appetite is increased with increase of Megace and will follow observed for further titration of medication as needed. 10/08/2018: Patient remains on 15 minute checks. Have increased his Lamictal 100 mg and will maintain his Wellbutrin at 300 mg by mouth every morning. He also has an increase of Prozac to 40 mg by mouth every morning for his continued depression. Discussed details on how to cope with his feelings of being a failure and encouraged him to participate in groups. He still is rather withdrawn but tends to associate with peers in the [facility]. 10/09/2018: Patient remains on 15 minute checks. Appears to be more interactive with the group. Increased his Lamictal 100 mg twice a day and maintain his Wellbutrin 300 mg in the morning. He was also increased to 40 mg of Prozac and appears by questioning that his depression has gone down and he is eating more at the present time. A family meeting is planned for this weekend. 10/12/2018: Patient remains on 15 minute checks. He looks lethargic and states the last 2 days he has not slept. Doxepin was added without any benefit and therefore was discontinued because it may affect his blood sugars. Increase his Lamictal today to 200 mg by mouth daily at bedtime. His Prozac remains at 40 mg daily daily. T3 and T4 levels were drawn to evaluate whether he has low T3 which may be valuable and augmenting Prozac and Lamictal for stabilization of his depression and energy. 10/13/2018 patient remains on 15 minute checks. He looks more energetic today than he has in the last 4 days. He slept without any sleeping aids last night and feels dramatically better today. His medications are stabilized Prozac 40 mg in the morning. Awaiting T3-T4 levels to see if there was any adjustment needed there to stabilize his depression. We'll follow observed usual protocol on the mental health unit anticipated discharge 10/14/2018 J Current Visit: Yes Status: Chronic Priority: Low Code(s): F33.9 - MAJOR DEPRESSIVE DISORDER, RECURRENT, UNSPECIFIED SNOMED Code(s): 14198587 Time with Patient: Less than 30
[2018-10-13 17:23] LABS: Glucose,Whole Blood 213 mg/dL (75-99)
[2018-10-13 19:57] LABS: Glucose,Whole Blood 161 mg/dL (75-99)
[2018-10-13] MEDS: INSULIN DETEMIR (LEVEMIR) 100 UNIT/ML SYR SQ SCH (20:27)
[2018-10-13] MEDS: lamoTRIgine 100 MG TAB PO SCH (20:56)
[2018-10-14 01:03] VITALS: TEMP 98.6
[2018-10-14 06:34] LABS: Glucose,Whole Blood 228 mg/dL (75-99)
[2018-10-14 06:55] VITALS: BP 111/63; PULSE 97
[2018-10-14] MEDS: buPROPion XL 300 MG TAB.ER.24H PO SCH (08:36)
[2018-10-14] MEDS: FLUoxetine HCL 20 MG CAP PO SCH (08:36)
[2018-10-14] MEDS: MEGESTROL 40 MG TAB PO SCH ×2 (08:36→12:55)
[2018-10-14] MEDS: INSULIN ASPART (NovoLOG) 100 UNIT/ML VIAL SQ SCH ×3 (08:39→13:08)
--- NOTE | 2018-10-14 11:05 | P.DS ---
Providers Date of admission: 10/04/18 10:46 Expected date of discharge: 10/14/18 Attending physician: William Gaxiola DO Consults: 10/04/18 10:58 Consult Physician Routine Consulting Provider: Brown Valenzuela Consult Reason/Comments: H & P medical management Do you want consulting provider notified?: Yes Primary care physician: Brown Valenzuela - Discharge Diagnosis(es) (1) Major depressive disorder, recurrent Allergies Allergy/AdvReac Type Severity Reaction Status Date / Time No Known Allergies Allergy Verified 10/04/18 01:17 Vital Signs Temp 98 F 10/05/18 06:30 Pulse 105 H 10/05/18 06:30 Resp 18 10/05/18 06:30 BP 90/63 10/05/18 06:30 Pulse Ox 97 10/04/18 11:04 Intake & Output 10/04/18 10/05/18 10/05/18 18:59 06:59 18:59 Weight 53.4 kg Laboratory Last Values WBC 18.5 k/uL (3.8-10.6) H 10/04/18 03:10 RBC 5.15 m/uL (4.30-5.90) 10/04/18 03:10 Hgb 16.3 gm/dL (13.0-17.5) 10/04/18 03:10 Hct 46.8 % (39.0-53.0) 10/04/18 03:10 MCV 90.7 fL (80.0-100.0) 10/04/18 03:10 MCH 31.7 pg (25.0-35.0) 10/04/18 03:10 MCHC 34.9 g/dL (31.0-37.0) 10/04/18 03:10 RDW 13.9 % (11.5-15.5) 10/04/18 03:10 Plt Count 339 k/uL (150-450) 10/04/18 03:10 Neutrophils % 81 % 10/04/18 03:10 Lymphocytes % 13 % 10/04/18 03:10 Monocytes % 4 % 10/04/18 03:10 Eosinophils % 2 % 10/04/18 03:10 Basophils % 0 % 10/04/18 03:10 Neutrophils # 14.9 k/uL (1.3-7.7) H 10/04/18 03:10 Lymphocytes # 2.3 k/uL (1.0-4.8) 10/04/18 03:10 Monocytes # 0.7 k/uL (0-1.0) 10/04/18 03:10 Eosinophils # 0.3 k/uL (0-0.7) 10/04/18 03:10 Basophils # 0.1 k/uL (0-0.2) 10/04/18 03:10 Sodium 134 mmol/L (137-145) L 10/04/18 03:10 Potassium 4.7 mmol/L (3.5-5.1) 10/04/18 03:10 Chloride 97 mmol/L (98-107) L 10/04/18 03:10 Carbon Dioxide 25 mmol/L (22-30) 10/04/18 03:10 Anion Gap 12 mmol/L 10/04/18 03:10 BUN 19 mg/dL (9-20) 10/04/18 03:10 Creatinine 0.50 mg/dL (0.66-1.25) L 10/04/18 03:10 Est GFR (CKD-EPI)AfAm >90 (>60 ml/min/1.73 sqM) 10/04/18 03:10 Est GFR (CKD-EPI)NonAf >90 (>60 ml/min/1.73 sqM) 10/04/18 03:10 Glucose 450 mg/dL (74-99) H 10/04/18 03:10 POC Glucose (mg/dL) 210 mg/dL (75-99) H 10/05/18 07:39 POC Glu Survey Research Teacher [place] 10/05/18 07:39 Plasma Lactic Acid Lne 0.9 mmol/L (0.7-2.0) 10/04/18 03:10 Calcium 9.3 mg/dL (8.4-10.2) 10/04/18 03:10 Total Bilirubin 0.8 mg/dL (0.2-1.3) 10/04/18 03:10 AST 21 U/L (17-59) 10/04/18 03:10 ALT 45 U/L (21-72) 10/04/18 03:10 Alkaline Phosphatase 119 U/L (38-126) 10/04/18 03:10 Total Protein 6.8 g/dL (6.3-8.2) 10/04/18 03:10 Albumin 4.5 g/dL (3.5-5.0) 10/04/18 03:10 Urine Color Colorless 10/04/18 02:00 Urine Appearance Clear (Clear) 10/04/18 02:00 Urine pH 5.0 (5.0-8.0) 10/04/18 02:00 Ur Specific Tichnor 1.041 (1.001-1.035) H 10/04/18 02:00 Urine Protein Negative (Negative) 10/04/18 02:00 Urine Glucose (UA) 4+ (Negative) H 10/04/18 02:00 Urine Ketones 3+ (Negative) H 10/04/18 02:00 Urine Blood Negative (Negative) 10/04/18 02:00 Urine Nitrite Negative (Negative) 10/04/18 02:00 Urine Bilirubin Negative (Negative) 10/04/18 02:00 Urine Urobilinogen <2.0 mg/dL (<2.0) 10/04/18 02:00 Ur Leukocyte Esterase Negative (Negative) 10/04/18 02:00 Urine Opiates Screen Not Detected (NotDetected) 10/04/18 02:00 Ur Oxycodone Screen Not Detected (NotDetected) 10/04/18 02:00 Urine Methadone Screen Not Detected (NotDetected) 10/04/18 02:00 Ur Propoxyphene Screen Not Detected (NotDetected) 10/04/18 02:00 Ur Barbiturates Screen Not Detected (NotDetected) 10/04/18 02:00 U Tricyclic Antidepress Not Detected (NotDetected) 10/04/18 02:00 Ur Phencyclidine Scrn Not Detected (NotDetected) 10/04/18 02:00 Ur Amphetamines Screen Not Detected (NotDetected) 10/04/18 02:00 U Methamphetamines Scrn Not Detected (NotDetected) 10/04/18 02:00 U Benzodiazepines Scrn Not Detected (NotDetected) 10/04/18 02:00 Urine Cocaine Screen Not Detected (NotDetected) 10/04/18 02:00 U Marijuana (THC) Screen Detected (NotDetected) H 10/04/18 02:00 Acetone, Qual Positive (Negative) 10/04/18 03:10 Assessment and Plan (1) Major depressive disorder, recurrent Narrative/Plan: Raul is a 23 yo male with PMH of depression who presents to the ER day for psychiatric evaluation. Patient states that he feels that he is a failure he is currently living on his sister's couch because he can't live on his own, he states that he lost his identification card has been having trouble getting 1 which makes everything is likely very difficult. Patient states he feels like anytime anything is going well his like just falls apart. Patient states he feels like it is constantly running into a brick wall and he doesn't feel like there is any hope for his like getting any better. Patient states that this evening he was thinking of suicide his plan was to overdose on insulin. Ever patient states that he has not been taking his insulin and hasn't checked his blood sugar in a while. Pt came to the ER with police d/t SI with a plan to OD on insulin. Upon arrival to the ER pt CBG was 521. Is now down to 376. Pt is very lethargic during assessment and process description writer must repeatedly call his name 2-3 times for him to answer questions. Pt states he has not been taking any medications except for his insulin for the past "month or two." - Related Data Home Medications Medication Instructions Recorded Confirmed Insulin Glargine [Lantus] 25 unit SQ HS 08/17/18 10/04/18 lamoTRIgine [LaMICtal] 200 mg PO HS 08/17/18 10/04/18 INSULIN ASPART (NovoLOG) [NovoLOG 8 unit SQ AC-TID 08/29/18 10/04/18 (formulary)] traZODone HCL [Desyrel] 300 mg PO HS 08/29/18 10/04/18 Previous Rx's Medication Instructions Recorded FLUoxetine HCL [PROzac] 60 mg PO DAILY 30 Days #90 cap 07/20/18 buPROPion XL [Wellbutrin XL] 300 mg PO DAILY 30 Days #30 07/20/18 tab.er.24h Ibuprofen [Motrin] 600 mg PO Q8HR PRN #30 tab 08/29/18 Albuterol Inhaler [Ventolin Hfa 1 - 2 puff INHALATION Q4-6H PRN #1 09/09/18 Inhaler] inhaler Allergies Allergy/AdvReac Type Severity Reaction Status Date / Time No Known Allergies Allergy Verified 10/04/18 01:17 Past Medical History Past Medical History: Asthma, Diabetes Mellitus, Skin Disorder Additional Past Medical History / Comment(s): , insulin dependent diabetes oral apraxia; previous suicidal attempts anxiety/depression, previous hospital physicians for DKA,gastroparesis. History of Any Multi-Drug Resistant Organisms: None Reported Past Surgical History: Adenoidectomy Additional Past Surgical History / Comment(s): 2002 Past Anesthesia/Blood Transfusion Reactions: No Reported Reaction Past Psychological History: Anxiety, Depression Smoking Status: Former smoker Past Alcohol Use History: None Reported Past Drug Use History: Marijuana - Past Family History Mother Family Medical History: CVA/TIA Father Family Medical History: Hyperlipidemia, Hypertension Additional Family Medical History / Comment(s): . Mental Status Examination - this is a 22-year-old male who lives with his sister. His mother is not in his life who lives with a roommate. He has not made any OUTPATIENT appointments at [facility] and health care services. He tried 3 jobs and was not successful two to the health General Appearance: [disheveled, appears stated age] Speech/Language: [slow,hesitant, soft, ] Attitude/Behavior: [withdrawn, indifferent] Mood: [depressed 8 out of 10, anxious 10 out of 10, hopelessness] Affect: [ flat, blunted constricted] Orientation: [Not oriented to time, but is person, place situation] Thought Content: [wnl Risk Factors: [He has had thoughts in the past but this was not a suicide attempt today denies suicidal (ideations, plan), and/or Homicidal (ideations, plan) Perception: [wnl, denies hallucinations (auditory, visual, tactile), other] Thought Processes: [goal-oriented he wants help and cannot get up from the [facility] to get an ID for him so that he can have follow-up care at [facility] care services. He has not been on any medications due to the fact he cannot have an ID Concentration/Attention Span: [impaired] [Per observation and interview with the patient] Recent Memory: [wnl Remote Memory: [wnl] [past events, as related history] Intelligence: [below average] [based on history, based on vocabulary, syntax, grammar, and content] Judgement: [poor] [per patient's behavior/history of present illness] Insight: [poor] [understanding severity of illness/history of present illness] Psychiatric impression: Major depressive disorder recurrent severe in nature and diabetes. Patient Strengths - Housing stability: [x] Able to vocalize needs: [x] Motivation, determination, readiness for change: [x] Patient Limitations: [medication, non-compliance, pathological/unsupported environment, intellectual impairment, lack of social supports] Initial Plan of Care: [He is admitted on a formal voluntary to the mental health unit [address] [facility]. He'll be evaluated by medicine, psychiatry, nursing staff, social work and occupational therapy to develop the biopsychosocial developmental treatment plan and discharge criteria. We'll restart him on his outpatient psychiatric medications before and observe him on 15 minute basis for safety since he suicidal. Restart his Prozac 30 mg by mouth every morning, restart Lamictal 25 mg by mouth daily at bedtime and restart Wellbutrin 150 mg XR by mouth every morning. Also added Megace 40 mg 4 times a day increase in appetite. He has a 17 pound weight loss] Current Visit: Yes Status: Chronic Priority: Low Hospital Course: 10/07/2018: Patient remains on 15 minute checks. He's had an increase in his Lamictal and increase of his Wellbutrin to 300 mg by mouth every morning. Encouraged to sign thought BIRGIT for his sister. His appetite is increased with increase of Megace and will follow observed for further titration of medication as needed. 10/08/2018: Patient remains on 15 minute checks. Have increased his Lamictal 100 mg and will maintain his Wellbutrin at 300 mg by mouth every morning. He also has an increase of Prozac to 40 mg by mouth every morning for his continued depression. Discussed details on how to cope with his feelings of being a failure and encouraged him to participate in groups. He still is rather withdrawn but tends to associate with peers in the [facility] environment. 10/09/2018: Patient remains on 15 minute checks. Appears to be more interactive with the group. Increased his Lamictal 100 mg twice a day and maintain his Wellbutrin 300 mg in the morning. He was also increased to 40 mg of Prozac and appears by questioning that his depression has gone down and he is eating more at the present time. A family meeting is planned for this weekend. 10/12/2018: Patient remains on 15 minute checks. He looks lethargic and states the last 2 days he has not slept. Doxepin was added without any benefit and therefore was discontinued because it may affect his blood sugars. Increase his Lamictal today to 200 mg by mouth daily at bedtime. His Prozac remains at 40 mg daily daily. T3 and T4 levels were drawn to evaluate whether he has low T3 which may be valuable and augmenting Prozac and Lamictal for stabilization of his depression and energy. 10/13/2018 patient remains on 15 minute checks. He looks more energetic today than he has in the last 4 days. He slept without any sleeping aids last night and feels dramatically better today. His medications are stabilized Prozac 40 mg in the morning. Awaiting T3-T4 levels to see if there was any adjustment needed there to stabilize his depression. We'll follow observed usual protocol on the mental health unit anticipated discharge 10/14/2018 Mental status examination on time discharge 10/14/2018 11:04 AM: The patient presents alert, pleasant, and cooperative. There calmly seated without any agitated behavior. [He] reports that [his] mood is good. Affect is congruent and euthymic. [He] deny having any suicidal or homicidal ideation intent or plan. [He] denies any auditory or visual hallucinations. There is no evidence of any delusional thought content. [His] thought process is linear and goal-directed. [His] speech is fluent and nonpressured. [His] memory and concentration is grossly intact for the purposes of this session. Patient Condition at Discharge: Stable Plan - Discharge Summary Discharge Rx Participant: Yes New Discharge Prescriptions: New lamoTRIgine [LaMICtal] 200 mg PO 2100 30 Days #60 tab Insulin Detemir (Levemir) [Levemir] 42 unit SQ HS 30 Days #1 syr Megestrol [Megace] 40 mg PO QID 30 Days #120 tab INSULIN ASPART (NovoLOG) [NovoLOG (formulary)] 14 unit SQ AC-TID 30 Days #1 vial FLUoxetine HCL [PROzac] 40 mg PO DAILY 30 Days #60 cap buPROPion XL [Wellbutrin XL] 300 mg PO DAILY 30 Days #30 tab.er.24h Continue traZODone HCL [Desyrel] 300 mg PO HS 30 Days #90 tab Insulin Glargine [Lantus] 25 unit SQ HS 30 Days #1 vial Albuterol Inhaler [Ventolin Hfa Inhaler] 1 - 2 puff INHALATION Q4-6H PRN #1 inhaler PRN Reason: Cough Discontinued buPROPion XL [Wellbutrin XL] 300 mg PO DAILY 30 Days #30 tab.er.24h FLUoxetine HCL [PROzac] 60 mg PO DAILY 30 Days #90 cap lamoTRIgine [LaMICtal] 200 mg PO HS INSULIN ASPART (NovoLOG) [NovoLOG (formulary)] 8 unit SQ AC-TID Ibuprofen [Motrin] 600 mg PO Q8HR PRN #30 tab PRN Reason: Pain Discharge Medication List Albuterol Inhaler [Ventolin Hfa Inhaler] 1 - 2 puff INHALATION Q4-6H PRN #1 inhaler 10/14/18 [Rx] FLUoxetine HCL [PROzac] 40 mg PO DAILY 30 Days #60 cap 10/14/18 [Rx] INSULIN ASPART (NovoLOG) [NovoLOG (formulary)] 14 unit SQ AC-TID 30 Days #1 vial 10/14/18 [Rx] Insulin Detemir (Levemir) [Levemir] 42 unit SQ HS 30 Days #1 syr 10/14/18 [Rx] Insulin Glargine [Lantus] 25 unit SQ HS 30 Days #1 vial 10/14/18 [Rx] Megestrol [Megace] 40 mg PO QID 30 Days #120 tab 10/14/18 [Rx] buPROPion XL [Wellbutrin XL] 300 mg PO DAILY 30 Days #30 tab.er.24h 10/14/18 [Rx] lamoTRIgine [LaMICtal] 200 mg PO 2100 30 Days #60 tab 10/14/18 [Rx] traZODone HCL [Desyrel] 300 mg PO HS 30 Days #90 tab 10/14/18 [Rx] Follow up Appointment(s)/Referral(s): Brown Valenzuela MD [Primary Care Provider] - 1-2 days Patient Instructions/Handouts: Depression (DC), Diabetic Ketoacidosis (DC), Help Prevent Suicide (DC), Diabetic Hyperglycemia (DC), Suicide Prevention (DC) Activity/Diet/Wound Care/Special Instructions: Activity and diet as tolerated. No guns or weapons in the home. Take all m edications as prescribed and attend all follow up appointments as scheduled. Refrain from alcohol and street drugs not prescribed by your physician. If in need of of medication refills, please go to your primary care physician or to your outpatient psychiatric provider. If in crisis please call . Discharge Disposition: HOME SELF-CARE
[2018-10-14] MEDS ORDERED: INSULIN ASPART (NovoLOG) 100 UNIT/ML VIAL SQ SCH (12:30)
[2018-10-14 12:33] LABS: Glucose,Whole Blood 190 mg/dL (75-99)
[2018-10-14] MEDS ORDERED: INSULIN DETEMIR (LEVEMIR) 100 UNIT/ML SYR SQ SCH (21:00)
== END 2018-10-14 15:15 | disposition home or self-care (01) | DRG 885 ==
LOC: EC 01:06 → 3MHU 10:46
PROVIDERS: ADMIT Psychiatry & Neurology Psychiatry; ATTEND Psychiatry & Neurology Psychiatry
DX: F33.2 Major depressive disorder, recurrent severe without psychotic features (principal); R45.851 Suicidal ideations; Z68.1 Body mass index [BMI] 19.9 or less, adult; E10.43 Type 1 diabetes mellitus with diabetic autonomic (poly)neuropathy; E10.65 Type 1 diabetes mellitus with hyperglycemia; J45.909 Unspecified asthma, uncomplicated; K31.84 Gastroparesis; T38.3X6A Underdosing of insulin and oral hypoglycemic [antidiabetic] drugs, initial encounter; Z79.4 Long term (current) use of insulin; Z79.899 Other long term (current) drug therapy; Z82.49 Family history of ischemic heart disease and other diseases of the circulatory system; Z87.891 Personal history of nicotine dependence; Z91.14 Patient's other noncompliance with medication regimen; Z91.19 Patient's noncompliance with other medical treatment and regimen; T43.206A Underdosing of unspecified antidepressants, initial encounter; Z91.128 Patient's intentional underdosing of medication regimen for other reason; R63.4 Abnormal weight loss; Z82.3 Family history of stroke; Z91.5 Personal history of self-harm; F41.9 Anxiety disorder, unspecified
CPT/HCPCS: 36415; 80053; 80306; 81003; 82009; 82075; 83605; 84436; 84480; 85025; 96360; 96361; 99285

== ENCOUNTER 2018-10-15 12:22 | Emergency (ER) | payer OTHER ==
[2018-10-15] MEDS ORDERED: SODIUM CHLORIDE 0.9% 1,000 ML IV STA (12:31)
[2018-10-15] MEDS ORDERED: SODIUM CHLORIDE 0.9% 2,000 ML IV STA (12:31)
[2018-10-15 12:53] LABS: Glucose,Whole Blood 425 mg/dL (75-99)
--- NOTE | 2018-10-15 12:55 | ED ---
Nausea/Vomiting/Diarrhea HPI - General Chief complaint: Nausea/Vomiting/Diarrhea Stated complaint: Male Time Seen by Provider: 10/15/18 12:31 Source: patient, RN notes reviewed Mode of arrival: ambulatory Limitations: no limitations - History of Present Illness Initial comments: This a 23-year-old male presents emergency Department with chief complaint of diarrhea. Patient's had worsening diarrhea last 2 days. Patient states the diarrhea is very loose watery. Patient states he also has had elevated blood sugar. Patient states he has not taken any insulin recently. Patient states that he is a viral diabetic. Patient denies any difficulty urinating other than urinary frequency. No fevers or chills no URI symptoms. - Related Data Home Medications Medication Instructions Recorded Confirmed INSULIN ASPART (NovoLOG) [NovoLOG 8 unit SQ AC-TID 10/15/18 10/15/18 (formulary)] Insulin Glargine [Lantus] 36 unit SQ HS 10/15/18 10/15/18 lamoTRIgine [LaMICtal] 200 mg PO HS 10/15/18 10/15/18 Previous Rx's Medication Instructions Recorded FLUoxetine HCL [PROzac] 40 mg PO DAILY 30 Days #60 cap 10/14/18 buPROPion XL [Wellbutrin XL] 300 mg PO DAILY 30 Days #30 10/14/18 tab.er.24h traZODone HCL [Desyrel] 300 mg PO HS 30 Days #90 tab 10/14/18 Allergies Allergy/AdvReac Type Severity Reaction Status Date / Time No Known Allergies Allergy Verified 10/15/18 12:34 Review of Systems ROS Statement: Those systems with pertinent positive or pertinent negative responses have been documented in the HPI. ROS Other: All systems not noted in ROS Statement are negative. Past Medical History Past Medical History: Asthma, Diabetes Mellitus, Skin Disorder Additional Past Medical History / Comment(s): , insulin dependent diabetes oral apraxia; previous suicidal attempts anxiety/depression, previous hospital physicians for DKA,gastroparesis. History of Any Multi-Drug Resistant Organisms: None Reported Past Surgical History: Adenoidectomy Additional Past Surgical History / Comment(s): 2002 Past Anesthesia/Blood Transfusion Reactions: No Reported Reaction Past Psychological History: Anxiety, Depression Smoking Status: Former smoker Past Alcohol Use History: None Reported Past Drug Use History: Marijuana - Past Family History Mother Family Medical History: CVA/TIA Father Family Medical History: Hyperlipidemia, Hypertension Additional Family Medical History / Comment(s): . General Exam Limitations: no limitations General appearance: alert, in no apparent distress Head exam: Present: atraumatic, normocephalic, normal inspection Neck exam: Present: normal inspection, full ROM. Absent: tenderness, meningismus, lymphadenopathy Respiratory exam: Present: normal lung sounds bilaterally. Absent: respiratory distress, wheezes, rales, rhonchi, stridor Cardiovascular Exam: Present: normal rhythm, tachycardia, normal heart sounds. Absent: systolic murmur, diastolic murmur, rubs, gallop, clicks GI/Abdominal exam: Present: soft, normal bowel sounds. Absent: distended, tenderness, guarding, rebound, rigid Neurological exam: Present: alert, oriented X3, CN II-XII intact Skin exam: Present: warm, dry, intact, normal color. Absent: rash Course Vital Signs 10/15/18 10/15/18 10/15/18 12:26 13:18 14:00 Temperature 98.8 F Pulse Rate 132 H 111 H 107 H Respiratory 22 18 16 Rate Blood Pressure 117/76 125/93 120/89 O2 Sat by Pulse 99 98 99 Oximetry Medical Decision Making - Medical Decision Making 23-year-old male presented for nausea, diarrhea and hyperglycemia Blood sugar is improved patient is not in DKA was well hydrated with 2 L of fluid, given IV insulin. Patient will be discharged at this time about diarrhea. I did give him strict return parameters and advised him that he needs to have strict con trol his blood sugar at this time. - Lab Data Result diagrams: 10/15/18 12:50 10/15/18 12:50 Lab Results 10/15/18 10/15/18 10/15/18 Range/Units 12:50 12:50 12:50 WBC 10.3 (3.8-10.6) k/uL RBC 5.24 (4.30-5.90) m/uL Hgb 16.1 (13.0-17.5) gm/dL Hct 48.2 (39.0-53.0) % MCV 91.9 (80.0-100.0) fL MCH 30.7 (25.0-35.0) pg MCHC 33.4 (31.0-37.0) g/dL RDW 13.0 (11.5-15.5) % Plt Count 466 H (150-450) k/uL Neutrophils % 72 % Lymphocytes % 16 % Monocytes % 7 % Eosinophils % 3 % Basophils % 1 % Neutrophils # 7.4 (1.3-7.7) k/uL Lymphocytes # 1.6 (1.0-4.8) k/uL Monocytes # 0.7 (0-1.0) k/uL Eosinophils # 0.3 (0-0.7) k/uL Basophils # 0.1 (0-0.2) k/uL VBG pH (7.31-7.41) VBG pCO2 (37-51) mmHg VBG HCO3 (24-28) mmol/L Sodium 135 L (137-145) mmol/L Potassium 4.8 (3.5-5.1) mmol/L Chloride 102 (98-107) mmol/L Carbon Dioxide 20 L (22-30) mmol/L Anion Gap 13 mmol/L BUN 19 (9-20) mg/dL Creatinine 0.43 L (0.66-1.25) mg/dL Est GFR (CKD-EPI)AfAm >90 (>60 ml/min/1.73 sqM) Est GFR (CKD-EPI)NonAf >90 (>60 ml/min/1.73 sqM) Glucose 474 H (74-99) mg/dL POC Glucose (mg/dL) 425 H (75-99) mg/dL POC Glu Accounts Payable Clerk Fer Barrett Plasma Lactic Acid Len (0.7-2.0) mmol/L Calcium 9.9 (8.4-10.2) mg/dL Total Bilirubin 1.0 (0.2-1.3) mg/dL AST 15 L (17-59) U/L ALT 43 (21-72) U/L Alkaline Phosphatase 97 (38-126) U/L Total Protein 7.4 (6.3-8.2) g/dL Albumin 4.7 (3.5-5.0) g/dL Amylase 46 (30-110) U/L Lipase 73 (23-300) U/L Urine Color Urine Appearance (Clear) Urine pH (5.0-8.0) Ur Specific [place] (1.001-1.035) Urine Protein (Negative) Urine Glucose (UA) (Negative) Urine Ketones (Negative) Urine Blood (Negative) Urine Nitrite (Negative) Urine Bilirubin (Negative) Urine Urobilinogen (<2.0) mg/dL Ur Leukocyte Esterase (Negative) Urine RBC (0-5) /hpf Urine WBC (0-5) /hpf Acetone, Qual Negative (Negative) 10/15/18 10/15/18 10/15/18 Range/Units 12:50 12:50 12:58 WBC (3.8-10.6) k/uL RBC (4.30-5.90) m/uL Hgb (13.0-17.5) gm/dL Hct (39.0-53.0) % MCV (80.0-100.0) fL MCH (25.0-35.0) pg MCHC (31.0-37.0) g/dL RDW (11.5-15.5) % Plt Count (150-450) k/uL Neutrophils % % Lymphocytes % % Monocytes % % Eosinophils % % Basophils % % Neutrophils # (1.3-7.7) k/uL Lymphocytes # (1.0-4.8) k/uL Monocytes # (0-1.0) k/uL Eosinophils # (0-0.7) k/uL Basophils # (0-0.2) k/uL VBG pH 7.39 (7.31-7.41) VBG pCO2 29 L (37-51) mmHg VBG HCO3 17 L (24-28) mmol/L Sodium (137-145) mmol/L Potassium (3.5-5.1) mmol/L Chloride (98-107) mmol/L Carbon Dioxide (22-30) mmol/L Anion Gap mmol/L BUN (9-20) mg/dL Creatinine (0.66-1.25) mg/dL Est GFR (CKD-EPI)AfAm (>60 ml/min/1.73 sqM) Est GFR (CKD-EPI)NonAf (>60 ml/min/1.73 sqM) Glucose (74-99) mg/dL POC Glucose (mg/dL) (75-99) mg/dL POC Glu Accounts Payable Clerk ID Plasma Lactic Acid Len 1.5 (0.7-2.0) mmol/L Calcium (8.4-10.2) mg/dL Total Bilirubin (0.2-1.3) mg/dL AST (17-59) U/L ALT (21-72) U/L Alkaline Phosphatase (38-126) U/L Total Protein (6.3-8.2) g/dL Albumin (3.5-5.0) g/dL Amylase (30-110) U/L Lipase (23-300) U/L Urine Color Light Yellow Urine Appearance Clear (Clear) Urine pH 5.5 (5.0-8.0) Ur Specific [place] 1.050 H (1.001-1.035) Urine Protein 1+ H (Negative) Urine Glucose (UA) 4+ H (Negative) Urine Ketones Negative (Negative) Urine Blood Negative (Negative) Urine Nitrite Negative (Negative) Urine Bilirubin Negative (Negative) Urine Urobilinogen <2.0 (<2.0) mg/dL Ur Leukocyte Esterase Negative (Negative) Urine RBC 1 (0-5) /hpf Urine WBC 1 (0-5) /hpf Acetone, Qual (Negative) 10/15/18 Range/Units 13:57 WBC (3.8-10.6) k/uL RBC (4.30-5.90) m/uL Hgb (13.0-17.5) gm/dL Hct (39.0-53.0) % MCV (80.0-100.0) fL MCH (25.0-35.0) pg MCHC (31.0-37.0) g/dL RDW (11.5-15.5) % Plt Count (150-450) k/uL Neutrophils % % Lymphocytes % % Monocytes % % Eosinophils % % Basophils % % Neutrophils # (1.3-7.7) k/uL Lymphocytes # (1.0-4.8) k/uL Monocytes # (0-1.0) k/uL Eosinophils # (0-0.7) k/uL Basophils # (0-0.2) k/uL VBG pH (7.31-7.41) VBG pCO2 (37-51) mmHg VBG HCO3 (24-28) mmol/L Sodium (137-145) mmol/L Potassium (3.5-5.1) mmol/L Chloride (98-107) mmol/L Carbon Dioxide (22-30) mmol/L Anion Gap mmol/L BUN (9-20) mg/dL Creatinine (0.66-1.25) mg/dL Est GFR (CKD-EPI)AfAm (>60 ml/min/1.73 sqM) Est GFR (CKD-EPI)NonAf (>60 ml/min/1.73 sqM) Glucose (74-99) mg/dL POC Glucose (mg/dL) 359 H (75-99) mg/dL POC Glu Accounts Payable Clerk ID Ann Marie Hayden Plasma Lactic Acid Len (0.7-2.0) mmol/L Calcium (8.4-10.2) mg/dL Total Bilirubin (0.2-1.3) mg/dL AST (17-59) U/L ALT (21-72) U/L Alkaline Phosphatase (38-126) U/L Total Protein (6.3-8.2) g/dL Albumin (3.5-5.0) g/dL Amylase (30-110) U/L Lipase (23-300) U/L Urine Color Urine Appearance (Clear) Urine pH (5.0-8.0) Ur Specific [place] (1.001-1.035) Urine Protein (Negative) Urine Glucose (UA) (Negative) Urine Ketones (Negative) Urine Blood (Negative) Urine Nitrite (Negative) Urine Bilirubin (Negative) Urine Urobilinogen (<2.0) mg/dL Ur Leukocyte Esterase (Negative) Urine RBC (0-5) /hpf Urine WBC (0-5) /hpf Acetone, Qual (Negative) Disposition Clinical Impression: Diarrhea, Hyperglycemia Disposition: HOME SELF-CARE Condition: Stable Instructions (If sedation given, give patient instructions): Acute Diarrhea (ED) Additional Instructions: Please return to the Emergency Department if symptoms worsen or any other concerns. Is patient prescribed a controlled substance at d/c from ED?: No Referrals: Brown Valenzuela MD [Primary Care Provider] - 1-2 days Time of Disposition: 14:53
[2018-10-15 13:12] LABS: Basophils # (A) 0.1 k/uL (0-0.2); Basophils % (A) 1 %; Eosinophils # (A) 0.3 k/uL (0-0.7); Eosinophils % (A) 3 %; HCT 48.2 % (39.0-53.0); HGB 16.1 gm/dL (13.0-17.5); Lymphocytes # (A) 1.6 k/uL (1.0-4.8); Lymphocytes % (A) 16 %; MCH 30.7 pg (25.0-35.0); MCHC 33.4 g/dL (31.0-37.0); MCV 91.9 fL (80.0-100.0); Mean Platelet Volume 6.3; Monocytes # (A) 0.7 k/uL (0-1.0); Monocytes % (A) 7 %; Neutrophils # (A) 7.4 k/uL (1.3-7.7); Neutrophils % (A) 72 %; Platelet Count 466 k/uL (150-450); RBC 5.24 m/uL (4.30-5.90); WBC 10.3 k/uL (3.8-10.6)
[2018-10-15 13:14] LABS: VBG PH 7.39 (7.31-7.41)
[2018-10-15 13:17] LABS: ALT 43 U/L (21-72); AST 15 U/L (17-59); Albumin 4.7 g/dL (3.5-5.0); Alkaline Phosphatase 97 U/L (38-126); Amylase 46 U/L (30-110); Anion Gap 13 mmol/L; Blood Urea Nitrogen 19 mg/dL (9-20); Calcium 9.9 mg/dL (8.4-10.2); Carbon Dioxide 20 mmol/L (22-30); Chloride 102 mmol/L (98-107); Glucose 474 mg/dL (74-99); Lipase 73 U/L (23-300); Potassium 4.8 mmol/L (3.5-5.1); Sodium 135 mmol/L (137-145); Total Protein 7.4 g/dL (6.3-8.2)
[2018-10-15 13:35] LABS: Appearance,Urine Clear (Clear); Bilirubin,Urine Negative (Negative); Blood,Urine Negative (Negative); Color,Urine Light Yellow; Glucose,Urine (UA) 4+ (Negative); Ketones,Urine Negative (Negative); Leukocyte Esterase,Urine Negative (Negative); Nitrite,Urine Negative (Negative); PH, Urine 5.5 (5.0-8.0); Protein,Urine 1+ (Negative); RBC,Urine 1 /hpf (0-5); Urobilinogen,Urine <2.0 mg/dL (<2.0); WBC,Urine 1 /hpf (0-5)
[2018-10-15] MEDS ORDERED: INSULIN REGULAR 100 UNIT/ML VIAL IV ONE (13:41)
[2018-10-15 14:02] VITALS: RESP 16
[2018-10-15 14:03] LABS: Glucose,Whole Blood 359 mg/dL (75-99)
[2018-10-15 14:52] LABS: Glucose,Whole Blood 245 mg/dL (75-99)
[2018-10-15 15:26] VITALS: BP 121/93; PULSE 103; TEMP 97.9
== END 2018-10-15 15:20 | disposition home or self-care (01) ==
LOC: EC 12:22
DX: E11.65 Type 2 diabetes mellitus with hyperglycemia (principal); R19.7 Diarrhea, unspecified; R00.0 Tachycardia, unspecified; E11.43 Type 2 diabetes mellitus with diabetic autonomic (poly)neuropathy; K31.84 Gastroparesis; F32.9 Major depressive disorder, single episode, unspecified; F41.9 Anxiety disorder, unspecified; Z87.891 Personal history of nicotine dependence; Z79.4 Long term (current) use of insulin; Z79.899 Other long term (current) drug therapy
CPT/HCPCS: 36415; 80053; 81001; 82009; 82150; 82803; 83605; 83690; 85025; 96360; 96361; 99284

== ENCOUNTER 2018-10-22 12:26 | Observation (INO) | payer OTHER ==
[2018-10-22] MEDS ORDERED: SODIUM CHLORIDE 0.9% 1,000 ML IV STA (12:34)
[2018-10-22] MEDS ORDERED: SODIUM CHLORIDE 0.9% 2,000 ML IV STA (12:34)
[2018-10-22] MEDS ORDERED: ONDANSETRON 4 MG/2 ML VIAL IVP STA (12:34)
--- NOTE | 2018-10-22 13:30 | ED ---
Abdominal Pain HPI - General Source: patient, EMS, RN notes reviewed Mode of arrival: EMS Limitations: no limitations <Cirilo Raymond - Last Filed: 10/22/18 15:20> <Jayant Nj - Last Filed: 10/22/18 16:11> - General Chief Complaint: Abdominal Pain Stated Complaint: Diabetic Time Seen by Provider: 10/22/18 12:33 - History of Present Illness Initial Comments: 23-year-old male presents emergency Department with chief complaint of hyperglycemia. Patient states his blood sugar has been elevated for last couple days no recent insulin given. Patient does admit to abdominal pain including nausea vomiting. Patient is a brittle diabetic, poor control at home. Patient denies any fevers chills no URI symptoms. (Cirilo Raymond) - Related Data Home Medications Medication Instructions Recorded Confirmed INSULIN ASPART (NovoLOG) [NovoLOG 10 unit SQ AC-TID 10/15/18 10/22/18 (formulary)] Insulin Glargine [Lantus] 25 unit SQ HS 10/15/18 10/22/18 lamoTRIgine [LaMICtal] 200 mg PO HS 10/15/18 10/22/18 Previous Rx's Medication Instructions Recorded FLUoxetine HCL [PROzac] 40 mg PO DAILY 30 Days #60 cap 10/14/18 buPROPion XL [Wellbutrin XL] 300 mg PO DAILY 30 Days #30 10/14/18 tab.er.24h traZODone HCL [Desyrel] 300 mg PO HS 30 Days #90 tab 10/14/18 Allergies Allergy/AdvReac Type Severity Reaction Status Date / Time No Known Allergies Allergy Verified 10/22/18 13:54 Review of Systems ROS Other: All systems not noted in ROS Statement are negative. <Cirilo Raymond - Last Filed: 10/22/18 15:20> ROS Other: All systems not noted in ROS Statement are negative. <Jayant Nj - Last Filed: 10/22/18 16:11> ROS Statement: Those systems with pertinent positive or pertinent negative responses have been documented in the HPI. Past Medical History Past Medical History: Asthma, Diabetes Mellitus, Skin Disorder Additional Past Medical History / Comment(s): , insulin dependent diabetes oral apraxia; previous suicidal attempts anxiety/depression, previous hospital physicians for DKA,gastroparesis. History of Any Multi-Drug Resistant Organisms: None Reported Past Surgical History: Adenoidectomy Additional Past Surgical History / Comment(s): 2002 Past Anesthesia/Blood Transfusion Reactions: No Reported Reaction Past Psychological History: Anxiety, Depression Smoking Status: Former smoker Past Alcohol Use History: None Reported Past Drug Use History: Marijuana - Past Family History Mother Family Medical History: CVA/TIA Father Family Medical History: Hyperlipidemia, Hypertension Additional Family Medical History / Comment(s): . <Cirilo Raymond - Last Filed: 10/22/18 15:20> General Exam Limitations: no limitations General appearance: alert, in no apparent distress Head exam: Present: atraumatic, normocephalic, normal inspection Eye exam: Present: normal appearance, PERRL, EOMI. Absent: scleral icterus, conjunctival injection, periorbital swelling ENT exam: Present: mucous membranes dry. Absent: normal exam Neck exam: Present: normal inspection. Absent: tenderness, meningismus, lymphadenopathy Respiratory exam: Present: normal lung sounds bilaterally. Absent: respiratory distress, wheezes, rales, rhonchi, stridor Cardiovascular Exam: Present: normal rhythm, tachycardia, normal heart sounds. Absent: systolic murmur, diastolic murmur, rubs, gallop, clicks GI/Abdominal exam: Present: soft, tenderness, normal bowel sounds. Absent: distended, guarding, rebound, rigid Neurological exam: Present: alert, oriented X3, CN II-XII intact Skin exam: Present: warm, dry, intact, normal color. Absent: rash <Cirilo Raymond - Last Filed: 10/22/18 15:20> Course Vital Signs 10/22/18 12:34 Pulse Rate 120 H Respiratory 18 Rate Blood Pressure 107/75 O2 Sat by Pulse 98 Oximetry Medical Decision Making - Lab Data Result diagrams: 10/22/18 13:14 10/22/18 13:14 <Cirilo Raymond - Last Filed: 10/22/18 15:20> - Lab Data Result diagrams: 10/22/18 13:14 10/22/18 13:14 <Jayant Nj - Last Filed: 10/22/18 16:11> - Medical Decision Making 23-year-old male presents emergency department for hyperglycemia nausea vomiting. Patient is improved but lab show hyperglycemia, acidosis and mall anion gap. Patiently admitted for IV insulin, hydration. (Cirilo Raymond) Case discussed with practitioner Cirilo. Chart and results reviewed. Case was also discussed in detail with Dr. Valenzuela who is familiar with this patient and will admit. (Jayant Nj) - Lab Data Lab Results 10/22/18 10/22/18 10/22/18 Range/Units 13:14 13:14 13:14 WBC 8.1 (3.8-10.6) k/uL RBC 5.57 (4.30-5.90) m/uL Hgb 17.1 (13.0-17.5) gm/dL Hct 49.0 (39.0-53.0) % MCV 88.0 (80.0-100.0) fL MCH 30.7 (25.0-35.0) pg MCHC 34.9 (31.0-37.0) g/dL RDW 14.0 (11.5-15.5) % Plt Count 391 (150-450) k/uL Neutrophils % 61 % Lymphocytes % 31 % Monocytes % 5 % Eosinophils % 1 % Basophils % 1 % Neutrophils # 5.0 (1.3-7.7) k/uL Lymphocytes # 2.5 (1.0-4.8) k/uL Monocytes # 0.4 (0-1.0) k/uL Eosinophils # 0.1 (0-0.7) k/uL Basophils # 0.1 (0-0.2) k/uL VBG pH (7.31-7.41) VBG pCO2 (37-51) mmHg VBG HCO3 (24-28) mmol/L Sodium 129 L (137-145) mmol/L Potassium 4.3 (3.5-5.1) mmol/L Chloride 90 L (98-107) mmol/L Carbon Dioxide 25 (22-30) mmol/L Anion Gap 14 mmol/L BUN 15 (9-20) mg/dL Creatinine 0.51 L (0.66-1.25) mg/dL Est GFR (CKD-EPI)AfAm >90 (>60 ml/min/1.73 sqM) Est GFR (CKD-EPI)NonAf >90 (>60 ml/min/1.73 sqM) Glucose 529 H* (74-99) mg/dL POC Glucose (mg/dL) (75-99) mg/dL POC Glu Manager Car ID Plasma Lactic Acid Len 2.4 H* (0.7-2.0) mmol/L Calcium 9.8 (8.4-10.2) mg/dL Total Bilirubin 1.2 (0.2-1.3) mg/dL AST 16 L (17-59) U/L ALT 34 (21-72) U/L Alkaline Phosphatase 102 (38-126) U/L Total Protein 6.9 (6.3-8.2) g/dL Albumin 4.5 (3.5-5.0) g/dL Lipase 261 (23-300) U/L Acetone, Qual Positive (Negative) 10/22/18 10/22/18 Range/Units 13:14 15:48 WBC (3.8-10.6) k/uL RBC (4.30-5.90) m/uL Hgb (13.0-17.5) gm/dL Hct (39.0-53.0) % MCV (80.0-100.0) fL MCH (25.0-35.0) pg MCHC (31.0-37.0) g/dL RDW (11.5-15.5) % Plt Count (150-450) k/uL Neutrophils % % Lymphocytes % % Monocytes % % Eosinophils % % Basophils % % Neutrophils # (1.3-7.7) k/uL Lymphocytes # (1.0-4.8) k/uL Monocytes # (0-1.0) k/uL Eosinophils # (0-0.7) k/uL Basophils # (0-0.2) k/uL VBG pH 7.48 H (7.31-7.41) VBG pCO2 35 L (37-51) mmHg VBG HCO3 26 (24-28) mmol/L Sodium (137-145) mmol/L Potassium (3.5-5.1) mmol/L Chloride (98-107) mmol/L Carbon Dioxide (22-30) mmol/L Anion Gap mmol/L BUN (9-20) mg/dL Creatinine (0.66-1.25) mg/dL Est GFR (CKD-EPI)AfAm (>60 ml/min/1.73 sqM) Est GFR (CKD-EPI)NonAf (>60 ml/min/1.73 sqM) Glucose (74-99) mg/dL POC Glucose (mg/dL) 463 H (75-99) mg/dL POC Glu Manager Car ID Ashley Miner Plasma Lactic Acid Len (0.7-2.0) mmol/L Calcium (8.4-10.2) mg/dL Total Bilirubin (0.2-1.3) mg/dL AST (17-59) U/L ALT (21-72) U/L Alkaline Phosphatase (38-126) U/L Total Protein (6.3-8.2) g/dL Albumin (3.5-5.0) g/dL Lipase (23-300) U/L Acetone, Qual (Negative) Disposition <Cirilo Raymond - Last Filed: 10/22/18 15:20> <Jayant Nj - Last Filed: 10/22/18 16:11> Clinical Impression: Lactic acidosis, IDDM (insulin dependent diabetes mellitus), Hyperglycemia, Nausea & vomiting Disposition: ADMITTED IP TO THIS HOSP Condition: Fair Referrals: Brown Valenzuela MD [Primary Care Provider] - 1-2 days
[2018-10-22 13:45] LABS: VBG PH 7.48 (7.31-7.41)
[2018-10-22 13:48] LABS: ALT 34 U/L (21-72); AST 16 U/L (17-59); African American GFR (CKD) >90 (>60 ml/min/1.73 sqM); Albumin 4.5 g/dL (3.5-5.0); Alkaline Phosphatase 102 U/L (38-126); Anion Gap 14 mmol/L; Blood Urea Nitrogen 15 mg/dL (9-20); Calcium 9.8 mg/dL (8.4-10.2); Carbon Dioxide 25 mmol/L (22-30); Chloride 90 mmol/L (98-107); Lipase 261 U/L (23-300); Potassium 4.3 mmol/L (3.5-5.1); Sodium 129 mmol/L (137-145); Total Bilirubin 1.2 mg/dL (0.2-1.3); Total Protein 6.9 g/dL (6.3-8.2)
[2018-10-22 14:03] LABS: Basophils # (A) 0.1 k/uL (0-0.2); Basophils % (A) 1 %; Eosinophils # (A) 0.1 k/uL (0-0.7); Eosinophils % (A) 1 %; HGB 17.1 gm/dL (13.0-17.5); Lymphocytes # (A) 2.5 k/uL (1.0-4.8); Lymphocytes % (A) 31 %; MCH 30.7 pg (25.0-35.0); MCHC 34.9 g/dL (31.0-37.0); Mean Platelet Volume 6.7; Monocytes # (A) 0.4 k/uL (0-1.0); Monocytes % (A) 5 %; Neutrophils % (A) 61 %; Platelet Count 391 k/uL (150-450); RBC 5.57 m/uL (4.30-5.90); WBC 8.1 k/uL (3.8-10.6)
[2018-10-22 14:13] LABS: Glucose 529 mg/dL (74-99)
[2018-10-22] MEDS ORDERED: INSULIN REGULAR 100 UNIT/ML VIAL IV ONE (14:36)
[2018-10-22 15:49] LABS: Glucose,Whole Blood 463 mg/dL (75-99)
[2018-10-22] MEDS: INSULIN REGULAR 100 UNIT in SODIUM CHLORIDE 0.9% 100 ML IV SCH (15:54)
[2018-10-22 16:46] LABS: Glucose,Whole Blood 415 mg/dL (75-99)
[2018-10-22 18:08] LABS: Glucose,Whole Blood 346 mg/dL (75-99)
[2018-10-22 18:19] LABS: African American GFR (CKD) >90 (>60 ml/min/1.73 sqM); Anion Gap 7 mmol/L; Blood Urea Nitrogen 12 mg/dL (9-20); Carbon Dioxide 28 mmol/L (22-30); Chloride 99 mmol/L (98-107); Glucose 360 mg/dL (74-99); Potassium 3.7 mmol/L (3.5-5.1); Sodium 134 mmol/L (137-145)
[2018-10-22 19:48] LABS: Glucose,Whole Blood 249 mg/dL (75-99)
[2018-10-22 21:03] LABS: Glucose,Whole Blood 145 mg/dL (75-99)
[2018-10-22] MEDS: D5-0.45% NACL WITH KCL 20MEQ/L 1,000 ML IV SCH (21:05)
[2018-10-22 21:50] LABS: African American GFR (CKD) >90 (>60 ml/min/1.73 sqM); Anion Gap 9 mmol/L; Blood Urea Nitrogen 12 mg/dL (9-20); Carbon Dioxide 30 mmol/L (22-30); Chloride 98 mmol/L (98-107); Glucose 120 mg/dL (74-99); Potassium 3.2 mmol/L (3.5-5.1); Sodium 137 mmol/L (137-145)
[2018-10-22] MEDS: SODIUM CHLORIDE 0.9% 1,000 ML IV SCH ×2 (22:12→22:13)
[2018-10-22 22:21] LABS: Glucose,Whole Blood 195 mg/dL (75-99)
[2018-10-22] MEDS ORDERED: Potassium Replacement Protocol 1 EACH MISC MISCELLANE PRN (22:37)
[2018-10-22] MEDS: INSULIN ASPART (NovoLOG) 100 UNIT/ML VIAL SQ SCH (23:42)
[2018-10-22] MEDS: traZODone HCL 100 MG TAB PO SCH (23:43)
[2018-10-22] MEDS: POTASSIUM CHLORIDE ER 20 MEQ TAB.ER PO SCH (23:43)
[2018-10-22] MEDS: INSULIN DETEMIR (LEVEMIR) 100 UNIT/ML SYR SQ SCH (23:43)
[2018-10-22] MEDS: lamoTRIgine 100 MG TAB PO SCH (23:43)
[2018-10-23] MEDS: POTASSIUM CHLORIDE ER 20 MEQ TAB.ER PO SCH (00:51)
[2018-10-23 00:55] LABS: Appearance,Urine Clear (Clear); Bilirubin,Urine Negative (Negative); Blood,Urine Negative (Negative); Calcium Oxalate Crystals,Urine Few /hpf; Color,Urine Yellow; Glucose,Urine (UA) 4+ (Negative); Ketones,Urine Negative (Negative); Leukocyte Esterase,Urine Negative (Negative); Mucus,Urine Occasional /hpf; Nitrite,Urine Negative (Negative); PH, Urine 5.5 (5.0-8.0); Protein,Urine 1+ (Negative); RBC,Urine 1 /hpf (0-5); Squamous Epithelial Cell,Urine <1 /hpf (0-4); Urobilinogen,Urine <2.0 mg/dL (<2.0); WBC,Urine 1 /hpf (0-5)
[2018-10-23 01:02] LABS: Specific Gravity,Urine 1.049 (1.001-1.035)
[2018-10-23] MEDS: D5-0.45% NACL WITH KCL 20MEQ/L 1,000 ML IV SCH ×2 (03:41→10:29)
[2018-10-23] MEDS: SODIUM CHLORIDE 0.9% 1,000 ML IV SCH ×2 (03:42→06:42)
[2018-10-23 06:28] LABS: Glucose,Whole Blood 167 mg/dL (75-99)
[2018-10-23] MEDS: INSULIN ASPART (NovoLOG) 100 UNIT/ML VIAL SQ SCH ×3 (06:44→17:49)
[2018-10-23] MEDS: FLUoxetine HCL 20 MG CAP PO SCH (09:30)
[2018-10-23] MEDS: buPROPion XL 300 MG TAB.ER.24H PO SCH (09:30)
[2018-10-23] MEDS ORDERED: POTASSIUM CHLORIDE ER 20 MEQ TAB.ER PO STA (09:32)
[2018-10-23] MEDS: INSULIN REGULAR 100 UNIT in SODIUM CHLORIDE 0.9% 100 ML IV SCH (10:29)
[2018-10-23 11:37] LABS: Glucose,Whole Blood 158 mg/dL (75-99)
--- NOTE | 2018-10-23 13:36 | P.CN ---
Psychiatric Consult - . Consult date: 10/23/18 Consult:: 10/23/18 13:31 Suicidal Assessment and Plan (1) Major depressive disorder, recurrent, mild Narrative/Plan: 23-year-old male presents emergency Department with chief complaint of hyper glycemia. Patient states his blood sugar has been elevated for last couple days no recent insulin given. Patient does admit to abdominal pain including nausea vomiting. Patient is a brittle diabetic, poor control at home. Patient denies any fevers chills no URI symptoms. I interviewed the patient at bedside and he has not picked up his fluoxetine Wellbutrin and trazodone from the pharmacy yet. - Related Data Home Medications Medication Instructions Recorded Confirmed INSULIN ASPART (NovoLOG) [NovoLOG 10 unit SQ AC-TID 10/15/18 10/22/18 (formulary)] Insulin Glargine [Lantus] 25 unit SQ HS 10/15/18 10/22/18 lamoTRIgine [LaMICtal] 200 mg PO HS 10/15/18 10/22/18 Previous Rx's Medication Instructions Recorded FLUoxetine HCL [PROzac] 40 mg PO DAILY 30 Days #60 cap 10/14/18 buPROPion XL [Wellbutrin XL] 300 mg PO DAILY 30 Days #30 10/14/18 tab.er.24h traZODone HCL [Desyrel] 300 mg PO HS 30 Days #90 tab 10/14/18 Allergies Allergy/AdvReac Type Severity Reaction Status Date / Time No Known Allergies Allergy Verified 10/22/18 13:54 Past Medical History Past Medical History: Asthma, Diabetes Mellitus, Skin Disorder Additional Past Medical History / Comment(s): , insulin dependent diabetes oral apraxia; previous suicidal attempts anxiety/depression, previous hospital physicians for DKA,gastroparesis. History of Any Multi-Drug Resistant Organisms: None Reported Past Surgical History: Adenoidectomy Additional Past Surgical History / Comment(s): 2002 Past Anesthesia/Blood Transfusion Reactions: No Reported Reaction Past Psychological History: Anxiety, Depression Smoking Status: Former smoker Past Alcohol Use History: None Reported Past Drug Use History: Marijuana Mental status examination: The patient presents alert, pleasant, and cooperative. There calmly seated without any agitated behavior. [He] reports that [his] mood is good. Affect is congruent and euthymic. [He] deny having any suicidal or homicidal ideation intent or plan. [He] denies any auditory or visual hallucinations. There is no evidence of any delusional thought content. [His] thought process is linear and goal-directed. [He has] speech is fluent and nonpressured. [His] memory and concentration is grossly intact for the purposes of this session. Psychiatric diagnoses: Major depressive disorder mild Psychiatric recommendation: Discussed with the patient and is go chart picker his medicines that are at [facility] which he has not done yet and he is not suicidal homicidal at the current time just frustrated being a brittle diabetic. When he is medically stable is able to go home Thank you for the consult William Gaxiola D.O. PhD Current Visit: Yes Status: Acute Priority: Low Code(s): F33.0 - MAJOR DEPRESSIVE DISORDER, RECURRENT, MILD SNOMED Code(s): 159887867 Time with Patient: Less than 30
[2018-10-23 16:50] LABS: Glucose,Whole Blood 255 mg/dL (75-99)
--- NOTE | 2018-10-23 20:15 | HP ---
HISTORY AND PHYSICAL CHIEF COMPLAINT: Uncontrolled diabetes and hyperglycemia. HISTORY OF PRESENT ILLNESS: This is another recent admission for this 23-year-old white male, a noncompliant type 1 diabetic. He lives with his sister, lies around all day, does not take care of himself and does not take his insulin. He has been in and out of the hospital on numerous occasions over the last several years with ketoacidosis. He also has problems with depression and just got out of the psych unit. REVIEW OF SYSTEMS: He has been thirsty and he has had some nausea and vomiting, but no other symptoms. Past medical history, family history, and personal and social histories are all otherwise unremarkable and unchanged. PHYSICAL EXAMINATION: Blood pressure 124/82 with a pulse of 135, respirations of 41. He is afebrile. In general he appeared to be slender, dehydrated, disheveled and depressed. Skin was dry. Head, ears, eyes, nose, mouth and throat were normal except for mucous membranes. Neck was supple. Neck veins were not distended. Chest was clear. Cardiac exam was normal and the abdomen flat, soft, nontender. Extremities were normal. Neurologically he was intact. He is admitted to the hospital with the diagnoses: 1. Hyperglycemia. 2. Uncontrolled type 1 insulin-dependent diabetes mellitus due to noncompliance. 3. Depression. PLAN: 1. Bed rest. 2. IV fluids. 3. Correct blood sugars. 4. Try and encourage the patient to take better care of himself before he incurs more consequences of uncontrolled diabetes. MMODL / IJN: [id number] /
--- NOTE | 2018-10-23 20:30 | PN ---
PROGRESS NOTE CHIEF COMPLAINT: Uncontrolled diabetes. HISTORY OF PRESENT ILLNESS: This gentleman remains lethargic and dehydrated. He is also apparently now talking about being depressed. PHYSICAL EXAM: Chest is clear. Cardiac exam demonstrates tachycardia. Abdomen is soft and flat. IMPRESSION: 1. Uncontrolled diabetes. 2. Type 1 insulin-dependent diabetes mellitus. 3. Dehydration. 4. Depression. PLAN: 1. Continue with IV fluids and rehydration. 2. Psych consult. MMODL / IJN: [id number] /
[2018-10-23] MEDS: lamoTRIgine 100 MG TAB PO SCH (20:34)
[2018-10-23] MEDS: traZODone HCL 100 MG TAB PO SCH (20:34)
[2018-10-23] MEDS: INSULIN DETEMIR (LEVEMIR) 100 UNIT/ML SYR SQ SCH (20:35)
[2018-10-23 20:48] LABS: Glucose,Whole Blood 208 mg/dL (75-99)
[2018-10-23 23:07] VITALS: RESP 20
[2018-10-24 06:08] VITALS: BP 95/58; TEMP 97.6
[2018-10-24 07:33] LABS: Glucose,Whole Blood 184 mg/dL (75-99)
[2018-10-24] MEDS: INSULIN ASPART (NovoLOG) 100 UNIT/ML VIAL SQ SCH ×2 (07:53→13:07)
[2018-10-24] MEDS: FLUoxetine HCL 20 MG CAP PO SCH (07:54)
[2018-10-24] MEDS: buPROPion XL 300 MG TAB.ER.24H PO SCH (07:54)
[2018-10-24 11:02] VITALS: PULSE 93
[2018-10-24 11:37] VITALS: BMI 15.1
[2018-10-24 12:11] LABS: Glucose,Whole Blood 242 mg/dL (75-99)
--- NOTE | 2018-10-24 18:06 | DS ---
DISCHARGE SUMMARY CHIEF COMPLAINT: Uncontrolled diabetes. HISTORY OF PRESENT ILLNESS AND PHYSICAL EXAM: Details of this man's history and physical can be found in the initial workup. LABORATORY STUDIES: While he was in the hospital, he had laboratory studies, details of which can be found in the laboratory section of his chart. COURSE IN HOSPITAL: After admission, he was placed on bedrest, started on intravenous fluids and hypokalemia and elevated blood sugars were corrected. He talked about suicide in the hospital and he was seen by Psychiatry, but they did not feel that he could or should be returned to the psych unit. He is stable and it was felt that he could go home on October 24 and he is encouraged to come in the hospital in the next few days for continued management of his diabetes, but it is unlikely he will do so. FINAL DIAGNOSES: 1. Uncontrolled insulin-dependent diabetes mellitus. 2. Diabetic ketoacidosis. 3. Hypokalemia. 4. Major depression. OPERATIONS: None. CONSULTATIONS: Psychiatry. He is improved. MMBIANCA / TRAMN: [id number] /
== END 2018-10-24 13:09 | disposition home or self-care (01) ==
LOC: EC 12:26 → INTOOBSV 16:11 → 3SCARD 16:11 → 4MS4W 10-23 12:07 → UNDODISIN 10-24 13:09
PROVIDERS: ADMIT Family Medicine; ATTEND Family Medicine
DX: E10.10 Type 1 diabetes mellitus with ketoacidosis without coma (principal); F33.0 Major depressive disorder, recurrent, mild; K31.84 Gastroparesis; E10.43 Type 1 diabetes mellitus with diabetic autonomic (poly)neuropathy; E86.0 Dehydration; E87.6 Hypokalemia; J45.909 Unspecified asthma, uncomplicated; F41.9 Anxiety disorder, unspecified; Z79.899 Other long term (current) drug therapy; Z79.4 Long term (current) use of insulin; Z87.891 Personal history of nicotine dependence; Z91.19 Patient's noncompliance with other medical treatment and regimen; Z91.14 Patient's other noncompliance with medication regimen; Z91.5 Personal history of self-harm; Z82.49 Family history of ischemic heart disease and other diseases of the circulatory system; Z83.49 Family history of other endocrine, nutritional and metabolic diseases; Z82.3 Family history of stroke
CPT/HCPCS: 96366 ×2; 96361; 96365; 96375; 99285; 36415; 80051; 80053; 82565; 82803; 82009; 83605; 83690; 84100; 84132 ×2; 82947; 84520; 85025; 81001; G0378 ×3; J2405; 96374

== ENCOUNTER 2018-11-02 08:40 | Observation (INO) | payer OTHER ==
[2018-11-02 09:36] LABS: Basophils # (A) 0.1 k/uL (0-0.2); Basophils % (A) 1 %; Eosinophils # (A) 0.2 k/uL (0-0.7); Eosinophils % (A) 2 %; HCT 41.8 % (39.0-53.0); HGB 14.4 gm/dL (13.0-17.5); Lymphocytes # (A) 2.9 k/uL (1.0-4.8); Lymphocytes % (A) 34 %; MCH 30.7 pg (25.0-35.0); MCHC 34.4 g/dL (31.0-37.0); MCV 89.3 fL (80.0-100.0); Mean Platelet Volume 6.5; Monocytes # (A) 0.5 k/uL (0-1.0); Monocytes % (A) 6 %; Neutrophils # (A) 4.6 k/uL (1.3-7.7); Neutrophils % (A) 55 %; Platelet Count 331 k/uL (150-450); RBC 4.68 m/uL (4.30-5.90); RDW 12.3 % (11.5-15.5); VBG PH 7.46 (7.31-7.41); WBC 8.4 k/uL (3.8-10.6)
[2018-11-02 09:37] LABS: Appearance,Urine Clear (Clear); Bilirubin,Urine Negative (Negative); Blood,Urine Negative (Negative); Color,Urine Colorless; Glucose,Urine (UA) 4+ (Negative); Leukocyte Esterase,Urine Negative (Negative); Nitrite,Urine Negative (Negative); Protein,Urine Trace (Negative); Specific Gravity,Urine 1.034 (1.001-1.035); Urobilinogen,Urine <2.0 mg/dL (<2.0)
[2018-11-02 09:46] LABS: ALT 35 U/L (21-72); AST 13 U/L (17-59); African American GFR (CKD) >90 (>60 ml/min/1.73 sqM); Alkaline Phosphatase 109 U/L (38-126); Anion Gap 15 mmol/L; Blood Urea Nitrogen 22 mg/dL (9-20); Calcium 9.2 mg/dL (8.4-10.2); Carbon Dioxide 21 mmol/L (22-30); Chloride 93 mmol/L (98-107); Potassium 5.2 mmol/L (3.5-5.1); Sodium 129 mmol/L (137-145); Total Bilirubin 0.6 mg/dL (0.2-1.3); Total Protein 6.3 g/dL (6.3-8.2)
[2018-11-02] MEDS ORDERED: SODIUM CHLORIDE 0.9% 2,000 ML IV ONE (09:56)
[2018-11-02 09:57] LABS: Glucose 600 mg/dL (74-99)
[2018-11-02] MEDS ORDERED: INSULIN REGULAR 100 UNIT/ML VIAL IV ONE (10:01)
--- NOTE | 2018-11-02 10:01 | ED ---
Psych HPI - General Source: patient, RN notes reviewed Mode of arrival: ambulatory Limitations: no limitations <Cirilo Raymond - Last Filed: 11/02/18 10:41> <Jayant Nj - Last Filed: 11/02/18 11:29> - General Chief Complaint: Psychiatric Symptoms Stated Complaint: EPS eval Time Seen by Provider: 11/02/18 08:43 - History of Present Illness Initial Comments: 23-year-old male presents emergency Department for psychiatric evaluation. Patient states that his brother felt that he needed to be evaluated. Patient states he that he would come in under his own car or his father was going to petition him. Patient states he is not suicidal or homicidal. Patient states that his brothers this finding out how he does not take care of himself and is worried. Patient does admit that he did not check his blood sugar today. But he denies any nausea, vomiting, diarrhea, chest pain, shortness breath, headache or dizziness. (Cirilo Raymond) - Related Data Home Medications Medication Instructions Recorded Confirmed INSULIN ASPART (NovoLOG) [NovoLOG 10 unit SQ AC-TID 10/15/18 11/02/18 (formulary)] Insulin Glargine [Lantus] 25 unit SQ HS 10/15/18 11/02/18 lamoTRIgine [LaMICtal] 200 mg PO HS 10/15/18 11/02/18 Megestrol [Megace] 40 mg PO QID 11/02/18 11/02/18 Previous Rx's Medication Instructions Recorded FLUoxetine HCL [PROzac] 40 mg PO DAILY 30 Days #60 cap 10/14/18 buPROPion XL [Wellbutrin XL] 300 mg PO DAILY 30 Days #30 10/14/18 tab.er.24h traZODone HCL [Desyrel] 300 mg PO HS 30 Days #90 tab 10/14/18 Allergies Allergy/AdvReac Type Severity Reaction Status Date / Time No Known Allergies Allergy Verified 11/02/18 09:08 Review of Systems ROS Other: All systems not noted in ROS Statement are negative. <Cirilo Raymond - Last Filed: 11/02/18 10:41> ROS Other: All systems not noted in ROS Statement are negative. <Jayant Nj - Last Filed: 11/02/18 11:29> ROS Statement: Those systems with pertinent positive or pertinent negative responses have been documented in the HPI. Past Medical History Past Medical History: Asthma, Diabetes Mellitus, Skin Disorder Additional Past Medical History / Comment(s): , insulin dependent diabetes oral apraxia; previous suicidal attempts anxiety/depression, previous hospital physicians for DKA,gastroparesis. History of Any Multi-Drug Resistant Organisms: None Reported Past Surgical History: Adenoidectomy Additional Past Surgical History / Comment(s): 2002 Past Anesthesia/Blood Transfusion Reactions: No Reported Reaction Past Psychological History: Anxiety, Depression Smoking Status: Former smoker Past Alcohol Use History: None Reported Past Drug Use History: Marijuana - Past Family History Mother Family Medical History: CVA/TIA Father Family Medical History: Hyperlipidemia, Hypertension Additional Family Medical History / Comment(s): . <Cirilo Raymond - Last Filed: 11/02/18 10:41> General Exam Limitations: no limitations General appearance: alert, in no apparent distress Head exam: Present: atraumatic, normocephalic, normal inspection Eye exam: Present: normal appearance, PERRL, EOMI. Absent: scleral icterus, conjunctival injection, periorbital swelling ENT exam: Present: normal exam, normal oropharynx, mucous membranes moist Neck exam: Present: normal inspection, full ROM. Absent: tenderness, meningismus, lymphadenopathy Respiratory exam: Present: normal lung sounds bilaterally. Absent: respiratory distress, wheezes, rales, rhonchi, stridor Cardiovascular Exam: Present: normal rhythm, tachycardia, normal heart sounds. Absent: systolic murmur, diastolic murmur, rubs, gallop, clicks GI/Abdominal exam: Present: soft, normal bowel sounds. Absent: distended, tenderness, guarding, rebound, rigid Neurological exam: Present: alert, oriented X3, CN II-XII intact Psychiatric exam: Present: normal affect, normal mood Skin exam: Present: warm, dry, intact, normal color. Absent: rash <Cirilo Raymond - Last Filed: 11/02/18 10:41> Course Vital Signs 11/02/18 08:43 Temperature 98.2 F Pulse Rate 135 H Respiratory 18 Rate Blood Pressure 124/88 O2 Sat by Pulse 98 Oximetry Medical Decision Making - Lab Data Result diagrams: 11/02/18 09:20 11/02/18 09:20 <Cirilo Raymond - Last Filed: 11/02/18 10:41> - Lab Data Result diagrams: 11/02/18 09:20 11/02/18 09:20 <Jayant Nj - Last Filed: 11/02/18 11:29> - Medical Decision Making 23-year-old male presents emergency department for psychiatric evaluation. Patient has a known diabetic. Patient's found to have blood sugar of 600, acetone positive in anion gap. Patient will be admitted for hyperglycemia uncontrolled diabetes and psychiatric evaluation (Cirilo Raymond) Case was discussed with practitioner Cirilo. Chart reviewed. Results reviewed. Case was also discussed with Dr. Valenzuela, who will admit his patient. (Jayant Nj) - Lab Data Lab Results 11/02/18 11/02/18 11/02/18 Range/Units 09:20 09:20 09:20 WBC 8.4 (3.8-10.6) k/uL RBC 4.68 (4.30-5.90) m/uL Hgb 14.4 (13.0-17.5) gm/dL Hct 41.8 (39.0-53.0) % MCV 89.3 (80.0-100.0) fL MCH 30.7 (25.0-35.0) pg MCHC 34.4 (31.0-37.0) g/dL RDW 12.3 (11.5-15.5) % Plt Count 331 (150-450) k/uL Neutrophils % 55 % Lymphocytes % 34 % Monocytes % 6 % Eosinophils % 2 % Basophils % 1 % Neutrophils # 4.6 (1.3-7.7) k/uL Lymphocytes # 2.9 (1.0-4.8) k/uL Monocytes # 0.5 (0-1.0) k/uL Eosinophils # 0.2 (0-0.7) k/uL Basophils # 0.1 (0-0.2) k/uL VBG pH (7.31-7.41) VBG pCO2 (37-51) mmHg VBG HCO3 (24-28) mmol/L Sodium 129 L (137-145) mmol/L Potassium 5.2 H (3.5-5.1) mmol/L Chloride 93 L (98-107) mmol/L Carbon Dioxide 21 L (22-30) mmol/L Anion Gap 15 mmol/L BUN 22 H (9-20) mg/dL Creatinine 0.53 L (0.66-1.25) mg/dL Est GFR (CKD-EPI)AfAm >90 (>60 ml/min/1.73 sqM) Est GFR (CKD-EPI)NonAf >90 (>60 ml/min/1.73 sqM) Glucose 600 H* (74-99) mg/dL Calcium 9.2 (8.4-10.2) mg/dL Total Bilirubin 0.6 (0.2-1.3) mg/dL AST 13 L (17-59) U/L ALT 35 (21-72) U/L Alkaline Phosphatase 109 (38-126) U/L Total Protein 6.3 (6.3-8.2) g/dL Albumin 4.0 (3.5-5.0) g/dL Urine Color Colorless Urine Appearance Clear (Clear) Urine pH 5.0 (5.0-8.0) Ur Specific [place] 1.034 (1.001-1.035) Urine Protein Trace H (Negative) Urine Glucose (UA) 4+ H (Negative) Urine Ketones 2+ H (Negative) Urine Blood Negative (Negative) Urine Nitrite Negative (Negative) Urine Bilirubin Negative (Negative) Urine Urobilinogen <2.0 (<2.0) mg/dL Ur Leukocyte Esterase Negative (Negative) Urine Opiates Screen Not Detected (NotDetected) Ur Oxycodone Screen Not Detected (NotDetected) Urine Methadone Screen Not Detected (NotDetected) Ur Propoxyphene Screen Not Detected (NotDetected) Ur Barbiturates Screen Not Detected (NotDetected) U Tricyclic Antidepress Not Detected (NotDetected) Ur Phencyclidine Scrn Not Detected (NotDetected) Ur Amphetamines Screen Not Detected (NotDetected) U Methamphetamines Scrn Not Detected (NotDetected) U Benzodiazepines Scrn Not Detected (NotDetected) Urine Cocaine Screen Not Detected (NotDetected) U Marijuana (THC) Screen Detected H (NotDetected) Acetone, Qual Positive (Negative) 11/02/18 Range/Units 09:20 WBC (3.8-10.6) k/uL RBC (4.30-5.90) m/uL Hgb (13.0-17.5) gm/dL Hct (39.0-53.0) % MCV (80.0-100.0) fL MCH (25.0-35.0) pg MCHC (31.0-37.0) g/dL RDW (11.5-15.5) % Plt Count (150-450) k/uL Neutrophils % % Lymphocytes % % Monocytes % % Eosinophils % % Basophils % % Neutrophils # (1.3-7.7) k/uL Lymphocytes # (1.0-4.8) k/uL Monocytes # (0-1.0) k/uL Eosinophils # (0-0.7) k/uL Basophils # (0-0.2) k/uL VBG pH 7.46 H (7.31-7.41) VBG pCO2 31 L (37-51) mmHg VBG HCO3 21 L (24-28) mmol/L Sodium (137-145) mmol/L Potassium (3.5-5.1) mmol/L Chloride (98-107) mmol/L Carbon Dioxide (22-30) mmol/L Anion Gap mmol/L BUN (9-20) mg/dL Creatinine (0.66-1.25) mg/dL Est GFR (CKD-EPI)AfAm (>60 ml/min/1.73 sqM) Est GFR (CKD-EPI)NonAf (>60 ml/min/1.73 sqM) Glucose (74-99) mg/dL Calcium (8.4-10.2) mg/dL Total Bilirubin (0.2-1.3) mg/dL AST (17-59) U/L ALT (21-72) U/L Alkaline Phosphatase (38-126) U/L Total Protein (6.3-8.2) g/dL Albumin (3.5-5.0) g/dL Urine Color Urine Appearance (Clear) Urine pH (5.0-8.0) Ur Specific [place] (1.001-1.035) Urine Protein (Negative) Urine Glucose (UA) (Negative) Urine Ketones (Negative) Urine Blood (Negative) Urine Nitrite (Negative) Urine Bilirubin (Negative) Urine Urobilinogen (<2.0) mg/dL Ur Leukocyte Esterase (Negative) Urine Opiates Screen (NotDetected) Ur Oxycodone Screen (NotDetected) Urine Methadone Screen (NotDetected) Ur Propoxyphene Screen (NotDetected) Ur Barbiturates Screen (NotDetected) U Tricyclic Antidepress (NotDetected) Ur Phencyclidine Scrn (NotDetected) Ur Amphetamines Screen (NotDetected) U Methamphetamines Scrn (NotDetected) U Benzodiazepines Scrn (NotDetected) Urine Cocaine Screen (NotDetected) U Marijuana (THC) Screen (NotDetected) Acetone, Qual (Negative) Disposition <Cirilo Raymond - Last Filed: 11/02/18 10:41> <Jayant Nj - Last Filed: 11/02/18 11:29> Clinical Impression: Hyperglycemia, Major depressive disorder, recurrent, mild, Uncontrolled diabetes mellitus Disposition: ADMITTED IP TO THIS HOSP Condition: Fair Referrals: Brown Valenzuela MD [Primary Care Provider] - 1-2 days
[2018-11-02 10:05] LABS: Amphetamine Screen,Urine Not Detected (NotDetected); Barbiturate Screen,Urine Not Detected (NotDetected); Benzodiazepines Screen,Urine Not Detected (NotDetected); Cocaine Screen,Urine Not Detected (NotDetected); Methadone Screen, Urine Not Detected (NotDetected); Opiate Screen,Urine Not Detected (NotDetected); Oxycodone Screen, Urine Not Detected (NotDetected); Phencyclidine Screen,Urine Not Detected (NotDetected); Tricyclic Antidepressant,Urine Not Detected (NotDetected); Urn Cannabinoid Scrn Detected (NotDetected)
[2018-11-02 10:30] LABS: Ketones,Urine 2+ (Negative)
[2018-11-02] MEDS ORDERED: INSULIN REGULAR 100 UNIT in SODIUM CHLORIDE 0.9% 100 ML IV SCH (10:45)
[2018-11-02] MEDS: SODIUM CHLORIDE 0.9% 1,000 ML IV SCH ×2 (11:30→21:53)
[2018-11-02 11:41] LABS: Glucose,Whole Blood 350 mg/dL (75-99)
[2018-11-02 12:53] LABS: Glucose,Whole Blood 308 mg/dL (75-99)
[2018-11-02 13:48] LABS: Glucose,Whole Blood 226 mg/dL (75-99)
[2018-11-02 13:58] LABS: African American GFR (CKD) >90 (>60 ml/min/1.73 sqM); Anion Gap 7 mmol/L; Blood Urea Nitrogen 18 mg/dL (9-20); Carbon Dioxide 25 mmol/L (22-30); Chloride 102 mmol/L (98-107); Glucose 261 mg/dL (74-99); Phosphorus 3.5 mg/dL (2.5-4.5); Potassium 4.1 mmol/L (3.5-5.1); Sodium 134 mmol/L (137-145)
[2018-11-02] MEDS ORDERED: D5-0.45% NACL WITH KCL 20MEQ/L 1,000 ML IV SCH (14:00)
[2018-11-02 14:52] LABS: Glucose,Whole Blood 241 mg/dL (75-99)
[2018-11-02 16:01] LABS: Glucose,Whole Blood 258 mg/dL (75-99)
[2018-11-02 17:17] LABS: Glucose,Whole Blood 225 mg/dL (75-99)
[2018-11-02 18:24] LABS: Glucose,Whole Blood 276 mg/dL (75-99)
[2018-11-02 18:25] LABS: African American GFR (CKD) >90 (>60 ml/min/1.73 sqM); Anion Gap 7 mmol/L; Blood Urea Nitrogen 17 mg/dL (9-20); Carbon Dioxide 25 mmol/L (22-30); Chloride 101 mmol/L (98-107); Glucose 233 mg/dL (74-99); Phosphorus 3.7 mg/dL (2.5-4.5); Potassium 4.3 mmol/L (3.5-5.1); Sodium 133 mmol/L (137-145)
[2018-11-02 19:26] LABS: Glucose,Whole Blood 265 mg/dL (75-99)
[2018-11-02 20:14] LABS: Glucose,Whole Blood 192 mg/dL (75-99)
[2018-11-02 20:19] VITALS: BMI 16.0
[2018-11-02] MEDS ORDERED: INSULIN DETEMIR (LEVEMIR) 100 UNIT/ML SYR SQ SCH (21:00)
[2018-11-02 21:53] LABS: Glucose,Whole Blood 266 mg/dL (75-99)
[2018-11-02] MEDS: traZODone HCL 100 MG TAB PO SCH (21:57)
[2018-11-02] MEDS: MEGESTROL 40 MG TAB PO SCH (21:57)
[2018-11-02] MEDS: lamoTRIgine 100 MG TAB PO SCH (21:57)
[2018-11-03 10:11] LABS: Glucose,Whole Blood 273 mg/dL (75-99)
[2018-11-03] MEDS: INSULIN ASPART (NovoLOG) 100 UNIT/ML VIAL SQ SCH ×3 (11:05→17:48)
[2018-11-03] MEDS: MEGESTROL 40 MG TAB PO SCH ×4 (11:05→21:18)
[2018-11-03] MEDS: FLUoxetine HCL 20 MG CAP PO SCH (11:06)
[2018-11-03] MEDS: buPROPion XL 300 MG TAB.ER.24H PO SCH (11:06)
[2018-11-03 11:58] LABS: Glucose,Whole Blood 222 mg/dL (75-99)
--- NOTE | 2018-11-03 13:32 | HP ---
HISTORY AND PHYSICAL CHIEF COMPLAINT: Major depression and uncontrolled diabetes. HISTORY OF PRESENT ILLNESS: This is another admission of many for this 23-year-old white male, type 1 diabetic. Apparently, he is still living with his sister and he becomes extremely depressed, stops taking his insulin and comes into the emergency room. He did this again. His blood sugar was over 600. He stated that he was suicidal. REVIEW OF SYSTEMS: He denies difficulty with vision, shortness of breath, chest pain, nausea, vomiting, dysuria, etc. Past medical history, family history and personal and social history are all otherwise unremarkable and unchanged. He is not allergic to any medication. It is not known if he is taking any. He has been on antidepressants and mood stabilizers from Psychiatry in the past. When he becomes depressed, he does not take his insulin, which is what happened this time again. The remainder of his history is unremarkable. PHYSICAL EXAMINATION: Blood pressure is 110/68 with a pulse of 95, respirations of 41, and he is afebrile. In general, he appeared to be slender, dehydrated and in no acute distress. Head, ears, eyes, nose, mouth, and throat were normal. Tongue was dry. Mucous membranes are dry. Neck was supple. There are no neck masses. Chest is clear to auscultation. Cardiac exam demonstrates sinus rhythm and no murmurs or extra sounds. There was tachycardia. The abdomen is flat and soft, nontender without any visceromegaly or masses. Bowel sounds present. Extremities are normal. Neurologically, he is intact. He is admitted to the hospital diagnoses: 1. Uncontrolled type 1 insulin-dependent diabetes mellitus with poor compliance to management. 2. Major depression. 3. Suicidal personality. PLAN: 1. Bed rest. 2. IV fluids. 3. Correct blood sugars. 4. Psych consult. MMODL / IJN: [id number] /
--- NOTE | 2018-11-03 13:44 | PN ---
PROGRESS NOTE DATE OF SERVICE: 11/03/2018 CHIEF COMPLAINT: Uncontrolled diabetes and depression. HISTORY OF PRESENT ILLNESS: This gentleman is doing better. Sugars are coming down. He is awake and alert. He is still extremely depressed and will be seen by Psychiatry. PHYSICAL EXAM: Chest is clear. Cardiac exam is normal. IMPRESSION: 1. Uncontrolled diabetes. 2. Major depression. 3. Suicidal thoughts. PLAN: Await for psych evaluation. MMODL / IJN: [id number] /
--- NOTE | 2018-11-03 16:10 | P.CN ---
Psychiatric Consult - . Consult date: 11/03/18 Consult:: 11/03/18 15:57 Identification: Patient is a 23-year-old male who was brought in with a blood sugar of 600 Reason for Consult: Depression History of Present Illness: Patient had recently been discharged from the psychiatric inpatient unit on 10/14/2018 and not fill his prescriptions and did not follow up with community mental health in [facility]. Patient's chart was reviewed, patient was seen and interviewed in his room and no family members were present. Patient states that he came to the hospital because his brother who had recently returned from [place] told him to come to the hospital because he wasn't taking care of himself. Patient states that after he was discharged in September he did not go to community mental health and did not fill his prescriptions or did he fill his prescriptions after his discharge from the medical floor at the end of September. Patient states that he has never followed up with community mental health following any of his discharges from the hospital nor has he taken any of his medications after he is been discharged from the hospital. Patient states that he was diagnosed with diabetes 5 years ago and for the first 2 years did take care of himself but then states that he stopped stating he got depressed which he described as not following up not caring what happened. 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 Patient states he spends his day watching TV watching his niece and cleaning house. He states that he has not been taking his insulin and was able to tell me that the consequences of that would be going into diabetic ketoacidosis and not controlling his blood sugar could lead to his having amputations and other medical problems. He states that this does not motivate him to care for himself. When questioned as to why he has not gone for follow-up appointments or taking medication he stated it's because he thinks his depression is worsening, when questioned as to whether the medications have been working or not he was unable to state. Patient states that he attempted suicide once with insulin at the age of 18 and was admitted to [facility] he thinks. He has had several admissions here 3 this year the most recent being in September 2018. Patient endorses feeling depressed not wanting to take care of things having little ambition or motivation to do anything. He denies any current suicidal ideation and other than his attempt at the age of 18 has made no other suicide attempts. Patient does not endorse any symptoms of psychosis, no symptoms of bekah and no OCD symptoms. Patient does state that he sleeps for 40 2:55 hours a night and denies that he naps during the day. Patient denies any impulsive behavior such as spending money gambling and no increased interest in sex. He is unable to give me a history of a decreased need for sleep and an increased level of energy. Patient states he has racing thoughts which he describes as worries about things. Patient denies any pressured speech, thoughts of having special arce or unrealistic goals. Patient states that he is used marijuana daily or every other day since the age of 16 and denies any other alcohol or drug use history. Past Psychiatric History: Patient has had 3 inpatient psychiatric admissions here in 2019 and has had multiple admissions in 2017 as well as 1 admission at [facility], the patient's last psychiatric admission here he was discharged in September 2018. Patient has been on medication and his most recent medications were Prozac 40 mg in the morning, Wellbutrin 300 mg in the morning, Lamictal 200 mg daily and trazodone 300 mg at bedtime. Patient has never been compliant with follow-up appointments at [facility] following any of his discharges nor did he fill his prescription or take his medications after any of his prior psychiatric admissions. Past Medical/Surgical History: Patient is diabetes insulin-dependent, denies any other medical problems and no surgical history Family History: Patient reports no family psychiatric history and no family history of substance or alcohol use and no completed suicides Social History: Patient was born and raised in [place] his parents are both alive and they when he was 19 years of age. He has 2 brothers and 1 sister. Patient moved out when he was 18 because he disliked living with multiple other families and moved back to [place] and lived with friends. He quit school in the 11th grade stating that he didn't do well in matter how hard he tried he failed at everything. He has never and has no children. 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 Patient is currently living with his sister who is financially supporting the patient. Patient states he has limited contact with his 2 other siblings and has no contact with his parents. He spends his days watching TV watching his niece are cleaning the house. Patient denies any abuse history Substance Use History: As stated above the patient states he began using marijuana at the age of 16 on a daily rather day basis and denies any alcohol or other drug use history Legal History: Patient was charged with fraud in the past Mental status: Appearance/Attitude: Patient is lying in a hospital bed in no acute distress, makes eye contact and is cooperative. Behavior: Patient does not exhibit any psychomotor agitation or retardation. Speech/Language: Patient's speech is spontaneous of normal volume and rhythm and he is coherent Thought Process: Patient is goal-directed there is no evidence of loose association or flight of ideas Thought Content: Patient denies any auditory or visual hallucinations and no delusions or paranoid ideation or elicited. Patient states that he feels unmotivated, disinterested and states that he ruminates and worries about things. Patient states that he is feeling depressed he denies feeling worthless and states that he does not have crying spells. He states he sleeps a maximum of 3 hours at times but is unable to endorse elevated energy level, pressured speech or other manic symptoms. Patient states he is eating. Suicidal/Homicidal Ideation: Patient denies any current suicidal or homicidal ideation Sensorium/Cognition: Patient is alert and oriented to person, place, and time and his recent and remote memory are grossly intact Mood/Affect: Patient's mood is restricted and his affect is blunted Insight/Judgment: Patient's insight and judgment are fair Assessment: Patient is aware of the consequences of not taking his insulin, patient also states he's felt depressed and needs help but has not sought any help after he is been discharged from the psychiatric unit and placed on medication. Patient is unable to state why he has not followed up at [facility], why is not filled his prescriptions and why he hasn't been taking his insulin and caring for himself as he is aware he needs to. Patient denies any current psychotic or suicidal ideation and none were elicited. Patient lives with his sister, is not working and states he can't because he can't obtain a picture ID from the state Diagnosis: Major depressive disorder, recurrent, moderate severity Plan: Patient was encouraged to fill his prescriptions on discharge and should be continued on Prozac 40 mg in the morning, Wellbutrin extended-release 300 mg in the morning, Lamictal 200 mg daily and trazodone 300 mg at bedtime which were the medications the patient was discharged on at the time of his discharge in September 2018 from the inpatient psychiatric unit. I will discontinue his one-to-one sitter as the patient is not currently suicidal. Patient was encouraged to follow up at [facility] as well as be compliant with his medications to treat his symptoms of depression and I had a long discussion with the patient regarding the need to continue on medication to target his symptoms and evaluate their effectiveness. I spoke with social work and placed a consultation to social work to obtain a follow-up appointment for the patient at [facility] once he is discharged, patient should be given scripts for the above psychotropic medications at the time of his discharge a 2 week supply with 1 refill is sufficient. Patient does not require transfer to an inpatient psychiatric unit and I will sign off the case at this time and if there are any further questions or concerns please don't hesitate to contact me
[2018-11-03 16:49] LABS: Glucose,Whole Blood 266 mg/dL (75-99)
[2018-11-03 20:03] LABS: Glucose,Whole Blood 315 mg/dL (75-99)
[2018-11-03] MEDS ORDERED: INSULIN DETEMIR (LEVEMIR) 100 UNIT/ML SYR SQ SCH (21:00)
[2018-11-03] MEDS: traZODone HCL 100 MG TAB PO SCH (21:19)
[2018-11-03] MEDS: lamoTRIgine 100 MG TAB PO SCH (21:19)
[2018-11-04 02:52] VITALS: RESP 16
[2018-11-04] MEDS: FLUoxetine HCL 20 MG CAP PO SCH (07:08)
[2018-11-04] MEDS: INSULIN ASPART (NovoLOG) 100 UNIT/ML VIAL SQ SCH ×2 (07:09→12:12)
[2018-11-04] MEDS: MEGESTROL 40 MG TAB PO SCH (07:09)
[2018-11-04] MEDS: buPROPion XL 300 MG TAB.ER.24H PO SCH (07:09)
[2018-11-04 07:29] LABS: Glucose,Whole Blood 309 mg/dL (75-99)
[2018-11-04 07:36] VITALS: BP 114/68; PULSE 118; TEMP 97.6
[2018-11-04 11:41] LABS: Glucose,Whole Blood 322 mg/dL (75-99)
--- NOTE | 2018-11-04 11:56 | DS ---
DISCHARGE SUMMARY CHIEF COMPLAINT: Uncontrolled type 1 insulin-dependent diabetes mellitus and depression. HISTORY OF PRESENT ILLNESS: This gentleman is admitted once again with a blood sugar of over 600 and professing to be depressed and suicidal. He is leading a very miserable life and becomes depressed, stops taking his insulin and does not take the psych medications that have been prescribed. He does not follow up either in the office or with Psychiatry. COURSE IN HOSPITAL: After admission, he was placed on bedrest, started on intravenous fluids and his blood sugars were brought under control and acid-base balance was restored. He was seen by Psychiatry who did not feel that he was suicidal and needed to be admitted to the psych unit. They cleared him to get his medications, start taking them and go to follow up arranged by Psychiatry in the community. He will be asked to come into the office in a day or 2. He is told to take his insulin as instructed. FINAL DIAGNOSES: 1. Uncontrolled insulin-dependent diabetes mellitus, type 1. 2. Depression. 3. Dehydration. 4. Diabetic ketoacidosis. 5. Noncompliance with taking his insulin and psych medications. MMODL / IJN: [id number] /
== END 2018-11-04 13:26 | disposition home or self-care (01) ==
LOC: EC 08:40 → INTOOBSV 11:28 → 3SCARD 11:28 → 4MS4W 21:59 → 4SSUR 11-03 11:31
PROVIDERS: ADMIT Family Medicine; ATTEND Family Medicine
DX: E10.10 Type 1 diabetes mellitus with ketoacidosis without coma (principal); F33.0 Major depressive disorder, recurrent, mild; R45.851 Suicidal ideations; K31.84 Gastroparesis; E10.43 Type 1 diabetes mellitus with diabetic autonomic (poly)neuropathy; E86.0 Dehydration; J45.909 Unspecified asthma, uncomplicated; T38.3X6A Underdosing of insulin and oral hypoglycemic [antidiabetic] drugs, initial encounter; T50.996A Underdosing of other drugs, medicaments and biological substances, initial encounter; F41.9 Anxiety disorder, unspecified; Z79.4 Long term (current) use of insulin; Z91.128 Patient's intentional underdosing of medication regimen for other reason; Z79.899 Other long term (current) drug therapy; Z87.891 Personal history of nicotine dependence; Z91.5 Personal history of self-harm; Z82.49 Family history of ischemic heart disease and other diseases of the circulatory system; Z84.89 Family history of other specified conditions
CPT/HCPCS: 82075; 96360; 96361; 99284; 36415; 80051; 80053; 82565; 82803; 82009; 84100; 82947; 84520; 85025; 81003; 80306; G0378 ×3; S0179 ×3

== ENCOUNTER 2018-11-20 04:47 | Emergency (ER) | payer OTHER ==
[2018-11-20 05:08] VITALS: RESP 16
[2018-11-20] MEDS ORDERED: SODIUM CHLORIDE 0.9% 500 ML 500 ML IV STA (05:13)
[2018-11-20] MEDS ORDERED: ONDANSETRON 4 MG/2 ML VIAL IVP STA (05:13)
[2018-11-20 05:44] LABS: Basophils # (A) 0.1 k/uL (0-0.2); Basophils % (A) 1 %; Eosinophils # (A) 0.4 k/uL (0-0.7); Eosinophils % (A) 5 %; HCT 42.6 % (39.0-53.0); HGB 14.2 gm/dL (13.0-17.5); Lymphocytes # (A) 2.8 k/uL (1.0-4.8); Lymphocytes % (A) 34 %; MCH 30.6 pg (25.0-35.0); MCHC 33.3 g/dL (31.0-37.0); MCV 91.9 fL (80.0-100.0); Mean Platelet Volume 6.4; Monocytes # (A) 0.6 k/uL (0-1.0); Monocytes % (A) 7 %; Neutrophils # (A) 4.1 k/uL (1.3-7.7); Neutrophils % (A) 50 %; Platelet Count 320 k/uL (150-450); RBC 4.63 m/uL (4.30-5.90); RDW 12.8 % (11.5-15.5); WBC 8.2 k/uL (3.8-10.6)
[2018-11-20 06:07] LABS: ALT 51 U/L (21-72); AST 22 U/L (17-59); African American GFR (CKD) >90 (>60 ml/min/1.73 sqM); Albumin 3.8 g/dL (3.5-5.0); Alkaline Phosphatase 73 U/L (38-126); Amylase 94 U/L (30-110); Anion Gap 11 mmol/L; Blood Urea Nitrogen 17 mg/dL (9-20); Calcium 8.7 mg/dL (8.4-10.2); Carbon Dioxide 27 mmol/L (22-30); Chloride 96 mmol/L (98-107); Lipase 442 U/L (23-300); Sodium 134 mmol/L (137-145); Total Bilirubin 0.3 mg/dL (0.2-1.3); Total Protein 6.1 g/dL (6.3-8.2)
--- NOTE | 2018-11-20 06:18 | ED ---
Nausea/Vomiting/Diarrhea HPI - General Chief complaint: Nausea/Vomiting/Diarrhea Stated complaint: male Time Seen by Provider: 11/20/18 05:13 Source: patient Mode of arrival: ambulatory Limitations: no limitations - History of Present Illness Initial comments: This patient is 23-year-old man who presents to have evaluation for diarrhea and perianal burning. Patient relates that he has been a bit noncompliant with his diabetes care for the past few days, and that when he does this he often will get diarrhea after he eats. The patient states that he has had over the past 3 days probably around 20 bowel movements. The pain is burning and comes on only during bowel movement and with wiping. He states that otherwise he is not having perianal pain. He states that he has not noticed any blood or mucus with the bowel movements area he has not had vomiting or abdominal pain. MD complaint: diarrhea Onset/Timin -: days(s) Description of Diarrhea: water Associated Abdominal Pain: No Improves with: none Worsens with: none - Related Data Home Medications Medication Instructions Recorded Confirmed INSULIN ASPART (NovoLOG) [NovoLOG 10 unit SQ AC-TID 10/15/18 11/02/18 (formulary)] Insulin Glargine [Lantus] 25 unit SQ HS 10/15/18 11/02/18 lamoTRIgine [LaMICtal] 200 mg PO HS 10/15/18 11/02/18 Megestrol [Megace] 40 mg PO QID 11/02/18 11/02/18 Previous Rx's Medication Instructions Recorded FLUoxetine HCL [PROzac] 40 mg PO DAILY 30 Days #60 cap 10/14/18 buPROPion XL [Wellbutrin XL] 300 mg PO DAILY 30 Days #30 10/14/18 tab.er.24h traZODone HCL [Desyrel] 300 mg PO HS 30 Days #90 tab 10/14/18 Zinc Oxide [Desitin] 57 gm TP TID #1 cream..g. 11/20/18 Allergies Allergy/AdvReac Type Severity Reaction Status Date / Time No Known Allergies Allergy Verified 11/20/18 05:08 Review of Systems ROS Statement: Those systems with pertinent positive or pertinent negative responses have been documented in the HPI. ROS Other: All systems not noted in ROS Statement are negative. Constitutional: Denies: fever, chills, weakness Respiratory: Denies: cough, dyspnea Cardiovascular: Denies: chest pain, palpitations, syncope Endocrine: Reports: polydipsia, polyuria Gastrointestinal: Reports: diarrhea. Denies: abdominal pain, nausea, vomiting, melena, hematochezia Genitourinary: Denies: dysuria, hematuria Skin: Denies: rash Neurological: Denies: headache, weakness Past Medical History Past Medical History: Asthma, Diabetes Mellitus, Skin Disorder Additional Past Medical History / Comment(s): , insulin dependent diabetes oral apraxia; previous suicidal attempts anxiety/depression, previous hospital physicians for DKA,gastroparesis. History of Any Multi-Drug Resistant Organisms: None Reported Past Surgical History: Adenoidectomy Additional Past Surgical History / Comment(s): 2002 Past Anesthesia/Blood Transfusion Reactions: No Reported Reaction Past Psychological History: Anxiety, Depression Smoking Status: Never smoker Past Alcohol Use History: None Reported Past Drug Use History: Marijuana - Past Family History Mother Family Medical History: CVA/TIA Father Family Medical History: Hyperlipidemia, Hypertension Additional Family Medical History / Comment(s): . General Exam Limitations: no limitations General appearance: alert, in no apparent distress Head exam: Present: atraumatic, normocephalic Eye exam: Present: normal appearance. Absent: scleral icterus, conjunctival injection Respiratory exam: Present: normal lung sounds bilaterally. Absent: respiratory distress, wheezes, rales, rhonchi, stridor Cardiovascular Exam: Present: regular rate, normal rhythm, normal heart sounds. Absent: systolic murmur, diastolic murmur, rubs, gallop GI/Abdominal exam: Present: soft. Absent: distended, tenderness, guarding, rebound, rigid, mass Rectal exam: Present: other (SHAYY Williamson present. Patient has perianal dermatitis. There also may be very mild anal fissure.) Extremities exam: Present: normal inspection, normal capillary refill. Absent: pedal edema, calf tenderness Neurological exam: Present: alert Skin exam: Present: warm, dry, intact, normal color. Absent: rash Course Vital Signs 11/20/18 11/20/18 11/20/18 05:05 06:08 08:06 Temperature 98.2 F 97.7 F 97.7 F Pulse Rate 100 98 98 Respiratory 16 16 16 Rate Blood Pressure 121/82 113/79 113/79 O2 Sat by Pulse 99 99 99 Oximetry Medical Decision Making - Medical Decision Making Patient is 23-year-old man having some burning pain at the anus during bowel movement. The patient does not have other pain. Exam reveals some perianal dermatitis that may be causing the patient's pain. Discussed that this may be the onset of something more serious such as perianal abscess, but the patient at this time is refusing digital rectal exam and is not having pain other than with the bowel movement. Discussed topical treatment and reinforced that he must return for reexam if the symptoms are not resolving. Also discussed he must have examined immediately if he has more consistent pain if there is any worsening or change in the character the pain or she develops other symptoms of infection. - Lab Data Result diagrams: 11/20/18 05:32 11/20/18 05:32 Lab Results 11/20/18 11/20/18 11/20/18 Range/Units 05:32 05:32 05:32 WBC 8.2 (3.8-10.6) k/uL RBC 4.63 (4.30-5.90) m/uL Hgb 14.2 (13.0-17.5) gm/dL Hct 42.6 (39.0-53.0) % MCV 91.9 (80.0-100.0) fL MCH 30.6 (25.0-35.0) pg MCHC 33.3 (31.0-37.0) g/dL RDW 12.8 (11.5-15.5) % Plt Count 320 (150-450) k/uL Neutrophils % 50 % Lymphocytes % 34 % Monocytes % 7 % Eosinophils % 5 % Basophils % 1 % Neutrophils # 4.1 (1.3-7.7) k/uL Lymphocytes # 2.8 (1.0-4.8) k/uL Monocytes # 0.6 (0-1.0) k/uL Eosinophils # 0.4 (0-0.7) k/uL Basophils # 0.1 (0-0.2) k/uL Sodium 134 L (137-145) mmol/L Potassium 4.0 (3.5-5.1) mmol/L Chloride 96 L (98-107) mmol/L Carbon Dioxide 27 (22-30) mmol/L Anion Gap 11 mmol/L BUN 17 (9-20) mg/dL Creatinine 0.50 L (0.66-1.25) mg/dL Est GFR (CKD-EPI)AfAm >90 (>60 ml/min/1.73 sqM) Est GFR (CKD-EPI)NonAf >90 (>60 ml/min/1.73 sqM) Glucose 516 H* (74-99) mg/dL POC Glucose (mg/dL) (75-99) mg/dL POC Glu Body Sander ID Calcium 8.7 (8.4-10.2) mg/dL Total Bilirubin 0.3 (0.2-1.3) mg/dL AST 22 (17-59) U/L ALT 51 (21-72) U/L Alkaline Phosphatase 73 (38-126) U/L Total Protein 6.1 L (6.3-8.2) g/dL Albumin 3.8 (3.5-5.0) g/dL Amylase 94 (30-110) U/L Lipase 442 H (23-300) U/L Urine Color Urine Appearance (Clear) Urine pH (5.0-8.0) Ur Specific [place] (1.001-1.035) Urine Protein (Negative) Urine Glucose (UA) (Negative) Urine Ketones (Negative) Urine Blood (Negative) Urine Nitrite (Negative) Urine Bilirubin (Negative) Urine Urobilinogen (<2.0) mg/dL Ur Leukocyte Esterase (Negative) Acetone, Qual Negative (Negative) 11/20/18 11/20/18 Range/Units 06:36 06:46 WBC (3.8-10.6) k/uL RBC (4.30-5.90) m/uL Hgb (13.0-17.5) gm/dL Hct (39.0-53.0) % MCV (80.0-100.0) fL MCH (25.0-35.0) pg MCHC (31.0-37.0) g/dL RDW (11.5-15.5) % Plt Count (150-450) k/uL Neutrophils % % Lymphocytes % % Monocytes % % Eosinophils % % Basophils % % Neutrophils # (1.3-7.7) k/uL Lymphocytes # (1.0-4.8) k/uL Monocytes # (0-1.0) k/uL Eosinophils # (0-0.7) k/uL Basophils # (0-0.2) k/uL Sodium (137-145) mmol/L Potassium (3.5-5.1) mmol/L Chloride (98-107) mmol/L Carbon Dioxide (22-30) mmol/L Anion Gap mmol/L BUN (9-20) mg/dL Creatinine (0.66-1.25) mg/dL Est GFR (CKD-EPI)AfAm (>60 ml/min/1.73 sqM) Est GFR (CKD-EPI)NonAf (>60 ml/min/1.73 sqM) Glucose (74-99) mg/dL POC Glucose (mg/dL) 426 H (75-99) mg/dL POC Glu Body Sander ID Clay Schaefer Calcium (8.4-10.2) mg/dL Total Bilirubin (0.2-1.3) mg/dL AST (17-59) U/L ALT (21-72) U/L Alkaline Phosphatase (38-126) U/L Total Protein (6.3-8.2) g/dL Albumin (3.5-5.0) g/dL Amylase (30-110) U/L Lipase (23-300) U/L Urine Color Colorless Urine Appearance Clear (Clear) Urine pH 5.0 (5.0-8.0) Ur Specific [place] 1.042 H (1.001-1.035) Urine Protein Negative (Negative) Urine Glucose (UA) 4+ H (Negative) Urine Ketones Negative (Negative) Urine Blood Negative (Negative) Urine Nitrite Negative (Negative) Urine Bilirubin Negative (Negative) Urine Urobilinogen <2.0 (<2.0) mg/dL Ur Leukocyte Esterase Negative (Negative) Acetone, Qual (Negative) Disposition Clinical Impression: Hyperglycemia, Dermatitis Disposition: HOME SELF-CARE Condition: Good Instructions (If sedation given, give patient instructions): Acute Diarrhea (ED), Diabetic Hyperglycemia (ED) Prescriptions: Zinc Oxide [Desitin] 57 gm TP TID #1 cream..g. Is patient prescribed a controlled substance at d/c from ED?: No Referrals: Brown Valenzuela MD [Primary Care Provider] - 1-2 days
[2018-11-20 06:33] LABS: Glucose 516 mg/dL (74-99)
[2018-11-20] MEDS ORDERED: SODIUM CHLORIDE 0.9% 1,000 ML IV ONE (06:34)
[2018-11-20 06:46] LABS: Appearance,Urine Clear (Clear); Bilirubin,Urine Negative (Negative); Blood,Urine Negative (Negative); Color,Urine Colorless; Glucose,Urine (UA) 4+ (Negative); Ketones,Urine Negative (Negative); Leukocyte Esterase,Urine Negative (Negative); Nitrite,Urine Negative (Negative); Protein,Urine Negative (Negative); Specific Gravity,Urine 1.042 (1.001-1.035); Urobilinogen,Urine <2.0 mg/dL (<2.0)
[2018-11-20 06:47] LABS: Glucose,Whole Blood 426 mg/dL (75-99)
[2018-11-20 07:06] VITALS: BP 113/79; PULSE 98; TEMP 97.7
== END 2018-11-20 08:06 | disposition home or self-care (01) ==
LOC: EC 04:47
DX: E11.65 Type 2 diabetes mellitus with hyperglycemia (principal); L30.9 Dermatitis, unspecified; R19.7 Diarrhea, unspecified; Z79.899 Other long term (current) drug therapy; Z79.4 Long term (current) use of insulin; Z53.29 Procedure and treatment not carried out because of patient's decision for other reasons
CPT/HCPCS: 36415; 80053; 81003; 82009; 82150; 83690; 85025; 96360; 96361; 99284

== ENCOUNTER 2018-12-12 11:51 | Observation (INO) | payer OTHER ==
[2018-12-12] MEDS ORDERED: SODIUM CHLORIDE 0.9% 1,000 ML IV STA ×2 (12:08→13:09)
[2018-12-12 12:16] LABS: Glucose,Whole Blood 352 mg/dL (75-99)
[2018-12-12] MEDS ORDERED: INSULIN ASPART (NovoLOG) 100 UNIT/ML VIAL SQ ONE (12:28)
[2018-12-12 12:57] LABS: ALT 37 U/L (21-72); AST 16 U/L (17-59); African American GFR (CKD) >90 (>60 ml/min/1.73 sqM); Albumin 4.3 g/dL (3.5-5.0); Alkaline Phosphatase 93 U/L (38-126); Anion Gap 16 mmol/L; Blood Urea Nitrogen 16 mg/dL (9-20); Calcium 9.4 mg/dL (8.4-10.2); Carbon Dioxide 23 mmol/L (22-30); Chloride 94 mmol/L (98-107); Glucose 345 mg/dL (74-99); Potassium 4.5 mmol/L (3.5-5.1); Sodium 133 mmol/L (137-145); Total Bilirubin 0.6 mg/dL (0.2-1.3); Total Protein 6.8 g/dL (6.3-8.2)
[2018-12-12 13:07] LABS: Basophils # (A) 0.1 k/uL (0-0.2); Basophils % (A) 1 %; Eosinophils # (A) 0.2 k/uL (0-0.7); Eosinophils % (A) 2 %; HCT 44.9 % (39.0-53.0); HGB 16.1 gm/dL (13.0-17.5); Lymphocytes # (A) 2.6 k/uL (1.0-4.8); Lymphocytes % (A) 26 %; MCH 31.4 pg (25.0-35.0); MCHC 35.7 g/dL (31.0-37.0); MCV 87.8 fL (80.0-100.0); Monocytes # (A) 0.5 k/uL (0-1.0); Monocytes % (A) 5 %; Neutrophils # (A) 6.5 k/uL (1.3-7.7); Neutrophils % (A) 65 %; Platelet Count 310 k/uL (150-450); RBC 5.12 m/uL (4.30-5.90); RDW 13.6 % (11.5-15.5); WBC 9.9 k/uL (3.8-10.6)
[2018-12-12 13:24] LABS: Magnesium 1.8 mg/dL (1.6-2.3); Phosphorus 4.1 mg/dL (2.5-4.5)
[2018-12-12 14:10] LABS: Appearance,Urine Clear (Clear); Bilirubin,Urine Negative (Negative); Blood,Urine Negative (Negative); Color,Urine Light Yellow; Glucose,Urine (UA) 4+ (Negative); Leukocyte Esterase,Urine Negative (Negative); Nitrite,Urine Negative (Negative); Protein,Urine Negative (Negative); Specific Gravity,Urine 1.044 (1.001-1.035); Urobilinogen,Urine <2.0 mg/dL (<2.0)
[2018-12-12 14:21] LABS: Ketones,Urine 4+ (Negative)
--- NOTE | 2018-12-12 14:47 | ED ---
General Adult HPI - General Chief complaint: Abdominal Pain Stated complaint: Hyperglycemia Time Seen by Provider: 12/12/18 12:06 Source: EMS, RN notes reviewed, old records reviewed Mode of arrival: EMS Limitations: no limitations - History of Present Illness Initial comments: 23-year-old male patient passed history of type 1 diabetes mellitus to ED with chief complaint of elevated blood sugar, nausea without emesis. Patient what that he was drinking alcohol last night and did not take his insulin. Today patient reports that he woke up feeling nauseous, blood sugar was elevated, patient has still not taking insulin. Patient reports that he feels similar to when he has been in diabetic ketoacidosis in the past. Patient denies any emesis. Patient denies any chest pain shortness breath abdominal pain. Denies other complaints. Systemic: Pt denies fatigue, fever/chills, rash. Pt denies weakness, night sweats, weight loss. Neuro: Pt denies headache, visual disturbances, syncope or pre-syncope. HEENT: Pt denies ocular discharge or irritation, otalgia, rhinorrhea, pharyngitis or notable lymphadenopathy. Cardiopulmonary: Pt denies chest pain, SOB, heart palpitations, dyspnea on exertion. Abdominal/GI: Pt denies abdominal pain, n/v/d. : Pt denies dysuria, burning w/ urination, frequency/urgency. Denies new onset urinary or bowel incontinence. MSK: Pt denies myalgia, loss of strength or function in extremities. Neuro: Pt denies new onset weakness, paresthesias. - Related Data Home Medications Medication Instructions Recorded Confirmed INSULIN ASPART (NovoLOG) [NovoLOG 10 unit SQ AC-TID 10/15/18 12/12/18 (formulary)] Insulin Glargine [Lantus] 25 unit SQ HS 10/15/18 12/12/18 Previous Rx's Medication Instructions Recorded traZODone HCL [Desyrel] 300 mg PO HS 30 Days #90 tab 10/14/18 Allergies Allergy/AdvReac Type Severity Reaction Status Date / Time No Known Allergies Allergy Verified 12/12/18 15:19 Review of Systems ROS Statement: Those systems with pertinent positive or pertinent negative responses have been documented in the HPI. ROS Other: All systems not noted in ROS Statement are negative. Past Medical History Past Medical History: Asthma, Diabetes Mellitus, Skin Disorder Additional Past Medical History / Comment(s): , insulin dependent diabetes oral apraxia; previous suicidal attempts anxiety/depression, previous hospital physicians for DKA,gastroparesis. History of Any Multi-Drug Resistant Organisms: None Reported Past Surgical History: Adenoidectomy Additional Past Surgical History / Comment(s): 2002 Past Anesthesia/Blood Transfusion Reactions: No Reported Reaction Past Psychological History: Anxiety, Depression Smoking Status: Never smoker Past Alcohol Use History: None Reported Past Drug Use History: Marijuana - Past Family History Mother Family Medical History: CVA/TIA Father Family Medical History: Hyperlipidemia, Hypertension Additional Family Medical History / Comment(s): . General Exam - General Exam Comments Initial Comments: Constitutional: NAD, AOX3, Pt has pleasant affect. HEENT: NC/AT, trachea midline, neck supple, no lymphadenopathy. Posterior pharynx non erythematous, without exudates. External ears appear normal, without discharge. Mucous membranes moist. Eyes PERRLA, EOM intact. There is no scleral icterus. No pallor noted. Cardiopulmonary: RRR, no murmurs, rubs or gallops, no JVD noted. Lungs CTAB in anterior and posterior brady. No peripheral edema. Abdominal exam: Abdomen soft and non-distended. Abdomen non-tender to palpation in all 4 quadrants. Bowel sounds active in LLQ. No hepatosplenomegaly. No ecchymosis Neuro: CN II-XII grossly intact. No nuchal rigidity. No raccon eyes, no barrett sign, no hemotympanum. No cervical spinal tenderness. MSK: No posterior calf tenderness bilaterally, homans sign negative bilaterally. Posterior tibialis and radial pulse +2 bilaterally. Sensation intact in upper and lower extremities. Full active ROM in upper and lower extremities, 5/5 stregnth. Limitations: no limitations Course Vital Signs 12/12/18 12/12/18 12/12/18 11:52 13:51 15:31 Temperature 98.1 F Pulse Rate 104 H 87 86 Respiratory 20 20 16 Rate Blood Pressure 109/83 120/88 116/77 O2 Sat by Pulse 98 99 99 Oximetry Medical Decision Making - Medical Decision Making 23-year-old male patient past medical history of type 1 diabetes plus ED for evaluation of high blood sugar, patient reports that he feels that he may be an early have ketoacidosis. Patient reports nausea without emesis. Denies any other complaints. Physical exam is acute pathology. Patient vital signs stable, afebrile. Laboratory investigations are non-impressive CBC. CMP revealed elevated blood sugar of 345, anion gap of 16, carbon dioxide of 23, acetone positive. UA revealed +4 glucose, +4 ketones. Chest x-ray revealed no acute process. Patient doesn't appear to be in mild diabetic ketoacidosis. Patient administered 2 L normal saline, 10 units subcu insulin. Insulin protocol began. Patient be admitted case discussed with Dr. Nj. - Lab Data Result diagrams: 12/12/18 12:21 12/12/18 12:21 Lab Results 12/12/18 12/12/18 12/12/18 Range/Units 12:15 12:21 12:21 WBC 9.9 (3.8-10.6) k/uL RBC 5.12 (4.30-5.90) m/uL Hgb 16.1 (13.0-17.5) gm/dL Hct 44.9 (39.0-53.0) % MCV 87.8 (80.0-100.0) fL MCH 31.4 (25.0-35.0) pg MCHC 35.7 (31.0-37.0) g/dL RDW 13.6 (11.5-15.5) % Plt Count 310 (150-450) k/uL Neutrophils % 65 % Lymphocytes % 26 % Monocytes % 5 % Eosinophils % 2 % Basophils % 1 % Neutrophils # 6.5 (1.3-7.7) k/uL Lymphocytes # 2.6 (1.0-4.8) k/uL Monocytes # 0.5 (0-1.0) k/uL Eosinophils # 0.2 (0-0.7) k/uL Basophils # 0.1 (0-0.2) k/uL Sodium 133 L (137-145) mmol/L Potassium 4.5 (3.5-5.1) mmol/L Chloride 94 L (98-107) mmol/L Carbon Dioxide 23 (22-30) mmol/L Anion Gap 16 mmol/L BUN 16 (9-20) mg/dL Creatinine 0.44 L (0.66-1.25) mg/dL Est GFR (CKD-EPI)AfAm >90 (>60 ml/min/1.73 sqM) Est GFR (CKD-EPI)NonAf >90 (>60 ml/min/1.73 sqM) Glucose 345 H (74-99) mg/dL POC Glucose (mg/dL) 352 H (75-99) mg/dL POC Glu Automation Test Engineer ID Yvrose Dutton Calcium 9.4 (8.4-10.2) mg/dL Phosphorus (2.5-4.5) mg/dL Magnesium (1.6-2.3) mg/dL Total Bilirubin 0.6 (0.2-1.3) mg/dL AST 16 L (17-59) U/L ALT 37 (21-72) U/L Alkaline Phosphatase 93 (38-126) U/L Total Protein 6.8 (6.3-8.2) g/dL Albumin 4.3 (3.5-5.0) g/dL Urine Color Urine Appearance (Clear) Urine pH (5.0-8.0) Ur Specific [place] (1.001-1.035) Urine Protein (Negative) Urine Glucose (UA) (Negative) Urine Ketones (Negative) Urine Blood (Negative) Urine Nitrite (Negative) Urine Bilirubin (Negative) Urine Urobilinogen (<2.0) mg/dL Ur Leukocyte Esterase (Negative) Acetone, Qual Positive (Negative) 12/12/18 12/12/18 Range/Units 12:21 13:50 WBC (3.8-10.6) k/uL RBC (4.30-5.90) m/uL Hgb (13.0-17.5) gm/dL Hct (39.0-53.0) % MCV (80.0-100.0) fL MCH (25.0-35.0) pg MCHC (31.0-37.0) g/dL RDW (11.5-15.5) % Plt Count (150-450) k/uL Neutrophils % % Lymphocytes % % Monocytes % % Eosinophils % % Basophils % % Neutrophils # (1.3-7.7) k/uL Lymphocytes # (1.0-4.8) k/uL Monocytes # (0-1.0) k/uL Eosinophils # (0-0.7) k/uL Basophils # (0-0.2) k/uL Sodium (137-145) mmol/L Potassium (3.5-5.1) mmol/L Chloride (98-107) mmol/L Carbon Dioxide (22-30) mmol/L Anion Gap mmol/L BUN (9-20) mg/dL Creatinine (0.66-1.25) mg/dL Est GFR (CKD-EPI)AfAm (>60 ml/min/1.73 sqM) Est GFR (CKD-EPI)NonAf (>60 ml/min/1.73 sqM) Glucose (74-99) mg/dL POC Glucose (mg/dL) (75-99) mg/dL POC Glu Automation Test Engineer ID Calcium (8.4-10.2) mg/dL Phosphorus 4.1 (2.5-4.5) mg/dL Magnesium 1.8 (1.6-2.3) mg/dL Total Bilirubin (0.2-1.3) mg/dL AST (17-59) U/L ALT (21-72) U/L Alkaline Phosphatase (38-126) U/L Total Protein (6.3-8.2) g/dL Albumin (3.5-5.0) g/dL Urine Color Light Yellow Urine Appearance Clear (Clear) Urine pH 5.0 (5.0-8.0) Ur Specific [place] 1.044 H (1.001-1.035) Urine Protein Negative (Negative) Urine Glucose (UA) 4+ H (Negative) Urine Ketones 4+ H (Negative) Urine Blood Negative (Negative) Urine Nitrite Negative (Negative) Urine Bilirubin Negative (Negative) Urine Urobilinogen <2.0 (<2.0) mg/dL Ur Leukocyte Esterase Negative (Negative) Acetone, Qual (Negative) Disposition Clinical Impression: DKA (diabetic ketoacidoses) Disposition: ADMITTED IP TO THIS [facility] Condition: Serious Is patient prescribed a controlled substance at d/c from ED?: No
[2018-12-12 14:49] LABS: Glucose,Whole Blood 239 mg/dL (75-99)
--- NOTE | 2018-12-12 14:57 | XR ---
EXAMINATION TYPE: XR chest 2V DATE OF EXAM: 12/12/2018 COMPARISON: 09/09/2018 HISTORY: Hyperglycemia TECHNIQUE: Frontal and lateral views of the chest are obtained. FINDINGS: Heart and mediastinum are normal. Lungs are clear. Diaphragm is normal. Bony thorax appear s normal. IMPRESSION: Normal chest. No change.
[2018-12-12] MEDS: SODIUM CHLORIDE 0.9% 1,000 ML IV SCH ×3 (15:07→22:20)
[2018-12-12] MEDS: INSULIN REGULAR 100 UNIT in SODIUM CHLORIDE 0.9% 100 ML IV SCH (15:22)
[2018-12-12] MEDS: D5-0.45% NACL WITH KCL 20MEQ/L 1,000 ML IV SCH ×2 (15:22→22:20)
[2018-12-12 15:43] LABS: Glucose,Whole Blood 207 mg/dL (75-99)
[2018-12-12 16:33] LABS: Glucose,Whole Blood 191 mg/dL (75-99)
[2018-12-12 17:05] LABS: African American GFR (CKD) >90 (>60 ml/min/1.73 sqM); Anion Gap 7 mmol/L; Blood Urea Nitrogen 16 mg/dL (9-20); Carbon Dioxide 29 mmol/L (22-30); Chloride 98 mmol/L (98-107); Glucose 175 mg/dL (74-99); Phosphorus 3.1 mg/dL (2.5-4.5); Potassium 3.8 mmol/L (3.5-5.1); Sodium 134 mmol/L (137-145)
[2018-12-12 17:37] LABS: Glucose,Whole Blood 249 mg/dL (75-99)
[2018-12-12 18:30] LABS: Glucose,Whole Blood 256 mg/dL (75-99)
[2018-12-12 19:27] LABS: Glucose,Whole Blood 248 mg/dL (75-99)
[2018-12-12 20:38] LABS: Glucose,Whole Blood 249 mg/dL (75-99)
[2018-12-12 20:46] LABS: African American GFR (CKD) >90 (>60 ml/min/1.73 sqM); Anion Gap 7 mmol/L; Blood Urea Nitrogen 14 mg/dL (9-20); Carbon Dioxide 30 mmol/L (22-30); Chloride 96 mmol/L (98-107); Glucose 191 mg/dL (74-99); Phosphorus 3.4 mg/dL (2.5-4.5); Potassium 4.1 mmol/L (3.5-5.1); Sodium 133 mmol/L (137-145)
[2018-12-12] MEDS ORDERED: traZODone HCL 50 MG TAB PO SCH (21:00)
[2018-12-12 21:58] LABS: Glucose,Whole Blood 168 mg/dL (75-99)
[2018-12-12 22:30] LABS: Glucose,Whole Blood 132 mg/dL (75-99)
[2018-12-12 23:46] LABS: Glucose,Whole Blood 163 mg/dL (75-99)
[2018-12-13 00:35] LABS: Glucose,Whole Blood 189 mg/dL (75-99)
[2018-12-13 01:34] LABS: Glucose,Whole Blood 208 mg/dL (75-99)
[2018-12-13 02:37] LABS: Glucose,Whole Blood 261 mg/dL (75-99)
[2018-12-13 03:38] LABS: Glucose,Whole Blood 185 mg/dL (75-99)
[2018-12-13] MEDS: INSULIN REGULAR 100 UNIT in SODIUM CHLORIDE 0.9% 100 ML IV SCH (03:54)
[2018-12-13] MEDS: D5-0.45% NACL WITH KCL 20MEQ/L 1,000 ML IV SCH (03:55)
[2018-12-13] MEDS: SODIUM CHLORIDE 0.9% 1,000 ML IV SCH (03:58)
[2018-12-13 04:52] LABS: Glucose,Whole Blood 177 mg/dL (75-99)
[2018-12-13 05:40] LABS: Glucose,Whole Blood 136 mg/dL (75-99)
[2018-12-13 06:39] LABS: Glucose,Whole Blood 112 mg/dL (75-99)
[2018-12-13] MEDS: INSULIN ASPART (NovoLOG) 100 UNIT/ML VIAL SQ SCH ×5 (07:28→12:15)
[2018-12-13 07:33] LABS: Glucose,Whole Blood 190 mg/dL (75-99)
[2018-12-13 08:05] VITALS: RESP 18; TEMP 98.1
[2018-12-13 11:56] LABS: Glucose,Whole Blood 260 mg/dL (75-99)
[2018-12-13 12:58] VITALS: BMI 16.2
[2018-12-13 13:02] VITALS: BP 110/78; PULSE 89
--- NOTE | 2018-12-13 19:27 | HP ---
HISTORY AND PHYSICAL CHIEF COMPLAINT: Uncontrolled diabetes and early ketoacidosis. HISTORY OF PRESENT ILLNESS: This is another admission of many for this noncompliant type 1 young male diabetic. He gives reason this time that he "drank too much on boat night." Of course, he does not take his insulin on a regular basis either. He came in with elevated blood sugar, dehydration, nausea and ketoacidosis. REVIEW OF SYSTEMS: He denies any other symptoms. Past medical history, family history, person and social histories are all otherwise unchanged. PHYSICAL EXAM: Blood pressure is 106/64 with a pulse of 101, respirations of 35, and he is afebrile. In general, he appeared to be slender and slightly short of breath. Skin was dry. He was dehydrated. Head, ears, eyes, nose, mouth, and throat were normal except for dehydration of the mucous membranes. Chest is clear. Cardiac exam demonstrated sinus tachycardia. The abdomen is flat, soft without masses or visceromegaly. Extremities are normal. IMPRESSION: 1. Diabetic ketoacidosis. 2. Type 1 juvenile onset uncontrolled diabetes mellitus. 3. Dehydration. 4. Medical noncompliance. PLAN: 1. Bed rest. 2. IV fluids. 3. Correct acidosis and elevated blood sugars. MMODL / IJN: [id number] /
--- NOTE | 2018-12-13 20:48 | DS ---
DISCHARGE SUMMARY CHIEF COMPLAINT: DKA. HISTORY OF PRESENT ILLNESS AND PHYSICAL EXAM: Details of this man's history and physical can be found in the initial workup. LABORATORY STUDIES: While he was in the hospital, he had laboratory studies, details of which can be found in the laboratory section of his chart. COURSE IN HOSPITAL: After admission he was placed on bedrest, started on intravenous fluids and insulin. Blood sugars were brought down and acid-base balance was restored. He is doing well. It was felt he could go home. He will go home on usual diet, activity and his usual insulin management and will be encouraged to come to the office in 1 or 2 days, but he usually will not. FINAL DIAGNOSES: 1. Diabetic ketoacidosis. 2. Uncontrolled type 1 juvenile onset insulin-dependent diabetes mellitus. 3. Noncompliance. 4. Dehydration. OPERATIONS: None. CONSULTATIONS: None. He is improved. GRACE / ALDEN: [id number] /
[2018-12-13] MEDS ORDERED: INSULIN DETEMIR (LEVEMIR) 100 UNIT/ML SYR SQ SCH (21:00)
[2018-12-13] MEDS ORDERED: traZODone HCL 100 MG TAB PO SCH (21:00)
== END 2018-12-13 15:01 | disposition home or self-care (01) ==
LOC: EC 11:51 → INTOOBSV 14:34 → 3SCARD 14:34 → UNDODISIN 12-13 15:01
PROVIDERS: ADMIT Family Medicine; ATTEND Family Medicine
DX: E10.10 Type 1 diabetes mellitus with ketoacidosis without coma (principal); E86.0 Dehydration; Z91.19 Patient's noncompliance with other medical treatment and regimen; J45.909 Unspecified asthma, uncomplicated; L98.9 Disorder of the skin and subcutaneous tissue, unspecified; F41.9 Anxiety disorder, unspecified; E10.43 Type 1 diabetes mellitus with diabetic autonomic (poly)neuropathy; K31.84 Gastroparesis; F32.9 Major depressive disorder, single episode, unspecified; Z79.4 Long term (current) use of insulin; Z79.899 Other long term (current) drug therapy; Z91.5 Personal history of self-harm; Z83.42 Family history of familial hypercholesterolemia; Z82.49 Family history of ischemic heart disease and other diseases of the circulatory system; Z82.3 Family history of stroke
CPT/HCPCS: 96365; 96366; 96361; 99285; 36415; 80051; 80053; 82565; 82009; 83690; 83735; 84100; 82947; 84520; 85025; 81003; 71046; G0378 ×2; 96360

== ENCOUNTER 2019-01-16 22:08 | Observation (INO) | payer OTHER ==
[2019-01-16 22:35] LABS: Glucose,Whole Blood 491 mg/dL (75-99)
[2019-01-16 22:59] LABS: Basophils # (A) 0.1 k/uL (0-0.2); Basophils % (A) 1 %; Eosinophils # (A) 0.3 k/uL (0-0.7); Eosinophils % (A) 3 %; HCT 44.2 % (39.0-53.0); HGB 15.1 gm/dL (13.0-17.5); Lymphocytes # (A) 3.6 k/uL (1.0-4.8); Lymphocytes % (A) 44 %; MCH 30.7 pg (25.0-35.0); MCHC 34.2 g/dL (31.0-37.0); MCV 89.9 fL (80.0-100.0); Mean Platelet Volume 6.6; Monocytes # (A) 0.4 k/uL (0-1.0); Monocytes % (A) 5 %; Neutrophils # (A) 3.7 k/uL (1.3-7.7); Neutrophils % (A) 45 %; Platelet Count 322 k/uL (150-450); RBC 4.92 m/uL (4.30-5.90); RDW 12.4 % (11.5-15.5); WBC 8.3 k/uL (3.8-10.6)
--- NOTE | 2019-01-16 22:59 | ED ---
General Adult HPI <RomeroJulian francois - Last Filed: 01/17/19 12:13> - General Source: patient, RN notes reviewed Mode of arrival: ambulatory Limitations: no limitations <Cirilo Raymond - Last Filed: 01/19/19 06:08> - General Chief complaint: Weakness Stated complaint: Drug ingestion Time Seen by Provider: 01/16/19 22:22 - History of Present Illness Initial comments: This a 23-year-old male presents emergency Department with chief complaint of hyperglycemia, depression, suicidal ideation. Patient is a type 3-year-old diabetic. Patient has not taken any insulin today. Patient states he just does not feel well. Some nausea no vomiting no diarrhea no constipation no URI symptoms. Patient's blood sugar currently is over 400. Patient states he also used acid a few hours prior arrival. He states is very depressed and is had some intermittent thoughts of suicide with no plan. Denies any homicidal ideation. (Cirilo Raymond) - Related Data Home Medications Medication Instructions Recorded Confirmed Insulin Glargine [Lantus] 25 unit SQ HS 10/15/18 01/16/19 INSULIN LISPRO (humaLOG) [humaLOG] 10 units SQ AC-TID 01/16/19 01/16/19 Allergies Allergy/AdvReac Type Severity Reaction Status Date / Time No Known Allergies Allergy Verified 01/16/19 22:49 Review of Systems ROS Other: All systems not noted in ROS Statement are negative. <Julian Romero - Last Filed: 01/17/19 12:13> ROS Other: All systems not noted in ROS Statement are negative. <Cirilo Raymond - Last Filed: 01/19/19 06:08> ROS Statement: Those systems with pertinent positive or pertinent negative responses have been documented in the HPI. Past Medical History Past Medical History: Asthma, Diabetes Mellitus, Skin Disorder Additional Past Medical History / Comment(s): , insulin dependent diabetes oral apraxia; previous suicidal attempts anxiety/depression, previous hospital physicians for DKA,gastroparesis. History of Any Multi-Drug Resistant Organisms: None Reported Past Surgical History: Adenoidectomy Additional Past Surgical History / Comment(s): 2002 Past Anesthesia/Blood Transfusion Reactions: No Reported Reaction Past Psychological History: Anxiety, Depression Smoking Status: Never smoker Past Alcohol Use History: None Reported Past Drug Use History: Marijuana - Past Family History Mother Family Medical History: CVA/TIA Father Family Medical History: Hyperlipidemia, Hypertension Additional Family Medical History / Comment(s): . <Cirilo Raymond - Last Filed: 01/19/19 06:08> General Exam Limitations: no limitations General appearance: alert, in no apparent distress Head exam: Present: atraumatic, normocephalic, normal inspection Eye exam: Present: normal appearance, PERRL, EOMI. Absent: scleral icterus, conjunctival injection, periorbital swelling ENT exam: Present: normal exam, mucous membranes moist Neck exam: Present: normal inspection. Absent: tenderness, meningismus, lymphadenopathy Respiratory exam: Present: normal lung sounds bilaterally. Absent: respiratory distress, wheezes, rales, rhonchi, stridor Cardiovascular Exam: Present: normal rhythm, tachycardia, normal heart sounds. Absent: systolic murmur, diastolic murmur, rubs, gallop, clicks GI/Abdominal exam: Present: soft, normal bowel sounds. Absent: distended, tende rness, guarding, rebound, rigid Neurological exam: Present: alert, oriented X3, CN II-XII intact Psychiatric exam: Present: depressed Skin exam: Present: warm, dry, intact, normal color. Absent: rash <Cirilo Raymond - Last Filed: 01/19/19 06:08> Course Vital Signs 01/16/19 01/16/19 01/17/19 22:17 23:21 02:41 Temperature 97.5 F L 98.5 F Pulse Rate 103 H 98 88 Respiratory 19 18 18 Rate Blood Pressure 95/69 114/86 118/83 O2 Sat by Pulse 99 100 97 Oximetry 01/17/19 01/17/19 08:00 13:40 Temperature 98.0 F 98.3 F Pulse Rate 87 90 Respiratory 14 16 Rate Blood Pressure 115/89 120/93 O2 Sat by Pulse 99 99 Oximetry Medical Decision Making - Lab Data Result diagrams: 01/16/19 22:40 01/17/19 11:21 <Julian Romero - Last Filed: 01/17/19 12:13> - Lab Data Result diagrams: 01/18/19 11:06 01/18/19 11:06 <Cirilo Raymond - Last Filed: 01/19/19 06:08> - Medical Decision Making Patient was in DKA however patient was not signed out so he did initially receive insulin however when I was informed 11:00 I repeated labs he was still in DKA/started insulin drip and follow that he came protocol. I spoke with Dr. Schwartz and he agreed to admit the patient admitted the patient I wrote admitting orders. (Julian Romero) - Lab Data Lab Results 01/16/19 01/16/19 01/16/19 Range/Units 22:27 22:40 22:40 WBC 8.3 (3.8-10.6) k/uL RBC 4.92 (4.30-5.90) m/uL Hgb 15.1 (13.0-17.5) gm/dL Hct 44.2 (39.0-53.0) % MCV 89.9 (80.0-100.0) fL MCH 30.7 (25.0-35.0) pg MCHC 34.2 (31.0-37.0) g/dL RDW 12.4 (11.5-15.5) % Plt Count 322 (150-450) k/uL Neutrophils % 45 % Lymphocytes % 44 % Monocytes % 5 % Eosinophils % 3 % Basophils % 1 % Neutrophils # 3.7 (1.3-7.7) k/uL Lymphocytes # 3.6 (1.0-4.8) k/uL Monocytes # 0.4 (0-1.0) k/uL Eosinophils # 0.3 (0-0.7) k/uL Basophils # 0.1 (0-0.2) k/uL VBG pH (7.31-7.41) VBG pCO2 (37-51) mmHg VBG HCO3 (24-28) mmol/L Sodium 135 L (137-145) mmol/L Potassium 4.0 (3.5-5.1) mmol/L Chloride 97 L (98-107) mmol/L Carbon Dioxide 25 (22-30) mmol/L Anion Gap 13 mmol/L BUN 12 (9-20) mg/dL Creatinine 0.39 L (0.66-1.25) mg/dL Est GFR (CKD-EPI)AfAm >90 (>60 ml/min/1.73 sqM) Est GFR (CKD-EPI)NonAf >90 (>60 ml/min/1.73 sqM) Glucose 533 H* (74-99) mg/dL POC Glucose (mg/dL) 491 H (75-99) mg/dL POC Glu Belt Repairer ID Lisa Ventura Plasma Lactic Acid Len (0.7-2.0) mmol/L Calcium 9.1 (8.4-10.2) mg/dL Total Bilirubin 0.5 (0.2-1.3) mg/dL AST 28 (17-59) U/L ALT 47 (21-72) U/L Alkaline Phosphatase 77 (38-126) U/L Total Protein 6.3 (6.3-8.2) g/dL Albumin 4.1 (3.5-5.0) g/dL Urine Color Urine Appearance (Clear) Urine pH (5.0-8.0) Ur Specific [place] (1.001-1.035) Urine Protein (Negative) Urine Glucose (UA) (Negative) Urine Ketones (Negative) Urine Blood (Negative) Urine Nitrite (Negative) Urine Bilirubin (Negative) Urine Urobilinogen (<2.0) mg/dL Ur Leukocyte Esterase (Negative) Urine Opiates Screen (NotDetected) Ur Oxycodone Screen (NotDetected) Urine Methadone Screen (NotDetected) Ur Propoxyphene Screen (NotDetected) Ur Barbiturates Screen (NotDetected) U Tricyclic Antidepress (NotDetected) Ur Phencyclidine Scrn (NotDetected) Ur Amphetamines Screen (NotDetected) U Methamphetamines Scrn (NotDetected) U Benzodiazepines Scrn (NotDetected) Urine Cocaine Screen (NotDetected) U Marijuana (THC) Screen (NotDetected) Serum Alcohol <10 mg/dL Acetone, Qual Positive (Negative) 01/16/19 01/16/19 01/17/19 Range/Units 22:40 22:40 00:10 WBC (3.8-10.6) k/uL RBC (4.30-5.90) m/uL Hgb (13.0-17.5) gm/dL Hct (39.0-53.0) % MCV (80.0-100.0) fL MCH (25.0-35.0) pg MCHC (31.0-37.0) g/dL RDW (11.5-15.5) % Plt Count (150-450) k/uL Neutrophils % % Lymphocytes % % Monocytes % % Eosinophils % % Basophils % % Neutrophils # (1.3-7.7) k/uL Lymphocytes # (1.0-4.8) k/uL Monocytes # (0-1.0) k/uL Eosinophils # (0-0.7) k/uL Basophils # (0-0.2) k/uL VBG pH 7.32 (7.31-7.41) VBG pCO2 51 (37-51) mmHg VBG HCO3 26 (24-28) mmol/L Sodium (137-145) mmol/L Potassium (3.5-5.1) mmol/L Chloride (98-107) mmol/L Carbon Dioxide (22-30) mmol/L Anion Gap mmol/L BUN (9-20) mg/dL Creatinine (0.66-1.25) mg/dL Est GFR (CKD-EPI)AfAm (>60 ml/min/1.73 sqM) Est GFR (CKD-EPI)NonAf (>60 ml/min/1.73 sqM) Glucose (74-99) mg/dL POC Glucose (mg/dL) 309 H (75-99) mg/dL POC Glu Belt Repairer ID Humberto Gloria Plasma Lactic Acid Len 0.9 (0.7-2.0) mmol/L Calcium (8.4-10.2) mg/dL Total Bilirubin (0.2-1.3) mg/dL AST (17-59) U/L ALT (21-72) U/L Alkaline Phosphatase (38-126) U/L Total Protein (6.3-8.2) g/dL Albumin (3.5-5.0) g/dL Urine Color Urine Appearance (Clear) Urine pH (5.0-8.0) Ur Specific [place] (1.001-1.035) Urine Protein (Negative) Urine Glucose (UA) (Negative) Urine Ketones (Negative) Urine Blood (Negative) Urine Nitrite (Negative) Urine Bilirubin (Negative) Urine Urobilinogen (<2.0) mg/dL Ur Leukocyte Esterase (Negative) Urine Opiates Screen (NotDetected) Ur Oxycodone Screen (NotDetected) Urine Methadone Screen (NotDetected) Ur Propoxyphene Screen (NotDetected) Ur Barbiturates Screen (NotDetected) U Tricyclic Antidepress (NotDetected) Ur Phencyclidine Scrn (NotDetected) Ur Amphetamines Screen (NotDetected) U Methamphetamines Scrn (NotDetected) U Benzodiazepines Scrn (NotDetected) Urine Cocaine Screen (NotDetected) U Marijuana (THC) Screen (NotDetected) Serum Alcohol mg/dL Acetone, Qual (Negative) 01/17/19 01/17/19 01/17/19 Range/Units 02:03 02:58 08:16 WBC (3.8-10.6) k/uL RBC (4.30-5.90) m/uL Hgb (13.0-17.5) gm/dL Hct (39.0-53.0) % MCV (80.0-100.0) fL MCH (25.0-35.0) pg MCHC (31.0-37.0) g/dL RDW (11.5-15.5) % Plt Count (150-450) k/uL Neutrophils % % Lymphocytes % % Monocytes % % Eosinophils % % Basophils % % Neutrophils # (1.3-7.7) k/uL Lymphocytes # (1.0-4.8) k/uL Monocytes # (0-1.0) k/uL Eosinophils # (0-0.7) k/uL Basophils # (0-0.2) k/uL VBG pH (7.31-7.41) VBG pCO2 (37-51) mmHg VBG HCO3 (24-28) mmol/L Sodium (137-145) mmol/L Potassium (3.5-5.1) mmol/L Chloride (98-107) mmol/L Carbon Dioxide (22-30) mmol/L Anion Gap mmol/L BUN (9-20) mg/dL Creatinine (0.66-1.25) mg/dL Est GFR (CKD-EPI)AfAm (>60 ml/min/1.73 sqM) Est GFR (CKD-EPI)NonAf (>60 ml/min/1.73 sqM) Glucose (74-99) mg/dL POC Glucose (mg/dL) 280 H 307 H (75-99) mg/dL POC Glu Belt Repairer ID Lisa Ventura Kayla Plasma Lactic Acid Len (0.7-2.0) mmol/L Calcium (8.4-10.2) mg/dL Total Bilirubin (0.2-1.3) mg/dL AST (17-59) U/L ALT (21-72) U/L Alkaline Phosphatase (38-126) U/L Total Protein (6.3-8.2) g/dL Albumin (3.5-5.0) g/dL Urine Color Light Yellow Urine Appearance Clear (Clear) Urine pH 5.0 (5.0-8.0) Ur Specific [place] 1.044 H (1.001-1.035) Urine Protein Negative (Negative) Urine Glucose (UA) 4+ H (Negative) Urine Ketones 2+ H (Negative) Urine Blood Negative (Negative) Urine Nitrite Negative (Negative) Urine Bilirubin Negative (Negative) Urine Urobilinogen <2.0 (<2.0) mg/dL Ur Leukocyte Esterase Negative (Negative) Urine Opiates Screen Not Detected (NotDetected) Ur Oxycodone Screen Not Detected (NotDetected) Urine Methadone Screen Not Detected (NotDetected) Ur Propoxyphene Screen Not Detected (NotDetected) Ur Barbiturates Screen Not Detected (NotDetected) U Tricyclic Antidepress Not Detected (NotDetected) Ur Phencyclidine Scrn Not Detected (NotDetected) Ur Amphetamines Screen Not Detected (NotDetected) U Methamphetamines Scrn Not Detected (NotDetected) U Benzodiazepines Scrn Not Detected (NotDetected) Urine Cocaine Screen Not Detected (NotDetected) U Marijuana (THC) Screen Detected H (NotDetected) Serum Alcohol mg/dL Acetone, Qual (Negative) 01/17/19 Range/Units 11:21 WBC (3.8-10.6) k/uL RBC (4.30-5.90) m/uL Hgb (13.0-17.5) gm/dL Hct (39.0-53.0) % MCV (80.0-100.0) fL MCH (25.0-35.0) pg MCHC (31.0-37.0) g/dL RDW (11.5-15.5) % Plt Count (150-450) k/uL Neutrophils % % Lymphocytes % % Monocytes % % Eosinophils % % Basophils % % Neutrophils # (1.3-7.7) k/uL Lymphocytes # (1.0-4.8) k/uL Monocytes # (0-1.0) k/uL Eosinophils # (0-0.7) k/uL Basophils # (0-0.2) k/uL VBG pH (7.31-7.41) VBG pCO2 (37-51) mmHg VBG HCO3 (24-28) mmol/L Sodium 135 L (137-145) mmol/L Potassium 4.4 (3.5-5.1) mmol/L Chloride 99 (98-107) mmol/L Carbon Dioxide 26 (22-30) mmol/L Anion Gap 10 mmol/L BUN 14 (9-20) mg/dL Creatinine 0.44 L (0.66-1.25) mg/dL Est GFR (CKD-EPI)AfAm >90 (>60 ml/min/1.73 sqM) Est GFR (CKD-EPI)NonAf >90 (>60 ml/min/1.73 sqM) Glucose 279 H (74-99) mg/dL POC Glucose (mg/dL) (75-99) mg/dL POC Glu Belt Repairer ID Plasma Lactic Acid Len (0.7-2.0) mmol/L Calcium 8.9 (8.4-10.2) mg/dL Total Bilirubin 0.8 (0.2-1.3) mg/dL AST 20 (17-59) U/L ALT 39 (21-72) U/L Alkaline Phosphatase 61 (38-126) U/L Total Protein 6.2 L (6.3-8.2) g/dL Albumin 3.9 (3.5-5.0) g/dL Urine Color Urine Appearance (Clear) Urine pH (5.0-8.0) Ur Specific [place] (1.001-1.035) Urine Protein (Negative) Urine Glucose (UA) (Negative) Urine Ketones (Negative) Urine Blood (Negative) Urine Nitrite (Negative) Urine Bilirubin (Negative) Urine Urobilinogen (<2.0) mg/dL Ur Leukocyte Esterase (Negative) Urine Opiates Screen (NotDetected) Ur Oxycodone Screen (NotDetected) Urine Methadone Screen (NotDetected) Ur Propoxyphene Screen (NotDetected) Ur Barbiturates Screen (NotDetected) U Tricyclic Antidepress (NotDetected) Ur Phencyclidine Scrn (NotDetected) Ur Amphetamines Screen (NotDetected) U Methamphetamines Scrn (NotDetected) U Benzodiazepines Scrn (NotDetected) Urine Cocaine Screen (NotDetected) U Marijuana (THC) Screen (NotDetected) Serum Alcohol mg/dL Acetone, Qual Positive (Negative) Disposition Time of Disposition: 12:15 <Julian Romero - Last Filed: 01/17/19 12:13> <Cirilo Raymond - Last Filed: 01/19/19 06:08> Clinical Impression: DKA (diabetic ketoacidoses), Suicidal ideation Disposition: ADMITTED IP TO THIS HOSP
[2019-01-16 23:01] LABS: VBG PH 7.32 (7.31-7.41)
[2019-01-16] MEDS: SODIUM CHLORIDE 0.9% 2,000 ML IV ONE ×2 (23:05→23:11)
[2019-01-16 23:09] LABS: ALT 47 U/L (21-72); AST 28 U/L (17-59); African American GFR (CKD) >90 (>60 ml/min/1.73 sqM); Albumin 4.1 g/dL (3.5-5.0); Alcohol <10 mg/dL; Alkaline Phosphatase 77 U/L (38-126); Anion Gap 13 mmol/L; Blood Urea Nitrogen 12 mg/dL (9-20); Calcium 9.1 mg/dL (8.4-10.2); Carbon Dioxide 25 mmol/L (22-30); Chloride 97 mmol/L (98-107); Sodium 135 mmol/L (137-145); Total Bilirubin 0.5 mg/dL (0.2-1.3); Total Protein 6.3 g/dL (6.3-8.2)
[2019-01-16] MEDS ORDERED: INSULIN REGULAR 100 UNIT/ML VIAL IV ONE (23:16)
[2019-01-16 23:21] LABS: Glucose 533 mg/dL (74-99)
[2019-01-17 00:15] LABS: Glucose,Whole Blood 309 mg/dL (75-99)
[2019-01-17 02:24] LABS: Appearance,Urine Clear (Clear); Bilirubin,Urine Negative (Negative); Blood,Urine Negative (Negative); Color,Urine Light Yellow; Glucose,Urine (UA) 4+ (Negative); Leukocyte Esterase,Urine Negative (Negative); Nitrite,Urine Negative (Negative); Protein,Urine Negative (Negative); Specific Gravity,Urine 1.044 (1.001-1.035); Urobilinogen,Urine <2.0 mg/dL (<2.0)
[2019-01-17 03:08] LABS: Glucose,Whole Blood 280 mg/dL (75-99)
[2019-01-17 03:14] LABS: Ketones,Urine 2+ (Negative)
[2019-01-17 03:26] LABS: Amphetamine Screen,Urine Not Detected (NotDetected); Barbiturate Screen,Urine Not Detected (NotDetected); Benzodiazepines Screen,Urine Not Detected (NotDetected); Cocaine Screen,Urine Not Detected (NotDetected); Methadone Screen, Urine Not Detected (NotDetected); Opiate Screen,Urine Not Detected (NotDetected); Oxycodone Screen, Urine Not Detected (NotDetected); Phencyclidine Screen,Urine Not Detected (NotDetected); Tricyclic Antidepressant,Urine Not Detected (NotDetected); Urn Cannabinoid Scrn Detected (NotDetected)
[2019-01-17] MEDS: INSULIN ASPART (NovoLOG) 100 UNIT/ML VIAL SQ SCH ×5 (08:21→21:07)
[2019-01-17 08:24] LABS: Glucose,Whole Blood 307 mg/dL (75-99)
[2019-01-17 11:46] LABS: ALT 39 U/L (21-72); AST 20 U/L (17-59); African American GFR (CKD) >90 (>60 ml/min/1.73 sqM); Albumin 3.9 g/dL (3.5-5.0); Alkaline Phosphatase 61 U/L (38-126); Anion Gap 10 mmol/L; Blood Urea Nitrogen 14 mg/dL (9-20); Calcium 8.9 mg/dL (8.4-10.2); Carbon Dioxide 26 mmol/L (22-30); Chloride 99 mmol/L (98-107); Glucose 279 mg/dL (74-99); Potassium 4.4 mmol/L (3.5-5.1); Sodium 135 mmol/L (137-145); Total Bilirubin 0.8 mg/dL (0.2-1.3); Total Protein 6.2 g/dL (6.3-8.2)
[2019-01-17] MEDS ORDERED: INSULIN REGULAR 100 UNIT in SODIUM CHLORIDE 0.9% 100 ML IV SCH (12:15)
[2019-01-17] MEDS ORDERED: SODIUM CHLORIDE 0.9% 1,000 ML IV SCH (12:15)
[2019-01-17 13:23] LABS: Glucose,Whole Blood 277 mg/dL (75-99)
[2019-01-17 14:35] LABS: Glucose,Whole Blood 309 mg/dL (75-99)
--- NOTE | 2019-01-17 15:14 | P.CN ---
Psychiatric Consult - . Consult date: 01/17/19 Consult:: 01/17/19 15:02 IDENTIFYING DATA: This patient is a 23-year-old male who currently lives with his sister and her boyfriend and also rotates between his friends places, currently unmarried. HISTORY OF PRESENT ILLNESS: The patient was brought into the hospital in [facility] with blood sugars above 400, was weak and confused and also stated that he was suicidal. Psychiatry is consulted for depression and suicidal ideations. Patient states that prior to coming into the hospital he wanted to try "a bit of acid" and states that he usually tries it and wanders off a little bit and then comes back home however he states that he had a "bad trip". And states that he started feeling weak and his blood sugars were not under control. Patient claims that he has been noncompliant with his insulin regimen and also diet. He states that she'll eat intermittently throughout the day and not pay attention to his blood sugars. He states that he feels hopeless and helpless with Tourette's to his diabetes and life and states that he does not like living dependent on other people. 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 Patient states that this has been causing him a lot of stress over the past few years and has been a barrier for him to get a job and also make doctors appointments. Patient claims that he does not have the certain requirements that the bee tender's looking for Which is making it difficult. Patient claims that his mood has been "blah" and states that he has been depressed for several years now. He denies any anxiety at this time. He states that he sleeps poorly 1-2 hours a night and has poor energy. He claims that. At this time patient denies homical ideations however does admit to passive SI with no intent or plan. Patient denies any auditory, visual hallucinations and denies any paranoia or delusions. PAST PSYCHIATRIC HISTORY: Patient has been admitted to the mental health unit several times in the past with the last admission being in 09/2018. Patient was previously put on an discharged with Prozac 40 mg daily, Wellbutrin 300 mg daily and trazodone 300 mg daily at bedtime and Lamictal 200 mg daily. Patient claims that he did have 1 previous suicide attempt where he attempted to overdose on insulin 4 years ago. Patient denies any outpatient follow-up in the community for psychiatric care.. PAST MEDICAL HISTORY: Diabetes mellitus type 1. ALLERGIES: No known drug allergies. CHEMICAL DEPENDENCY HISTORY: Claims to smoke marijuana approximately one joint a day and claims to use acid periodically. FAMILY PSYCHIATRIC HISTORY: Mother and father both suffered from depression. Denies any family history of suicide completion. FAMILY CHEMICAL DEPENDENCY HISTORY:denies. . SOCIAL HISTORY: He states that he made it up until 11th grade in high school and dropped out. Patient claims that he is unemployed for the past 2-3 years and currently lives with his sister and her boyfriend and often goes between friends where he lives. Patient is unmarried and has no kids. MENTAL STATUS EXAM: General Appearance: Patient appears to be stated age is alert, cooperative however was guarded and evasive. Patient has poor hygiene and poor groomed Behavior: Patient is calmly lying in hospital bed without any agitated behavior. Speech: Patient's speech is fluent and nonpressured. Soft tone Mood/Affect: Patient reports their mood is dysthymic, affect is congruent Suicidality/Homicidality: Patient admits to passive suicidal ideations, with no plan or intent. Denies any homicidal ideations. Perceptions: Patient denies any auditory or visual hallucinations. Though content/process: There is no evidence of any delusional thought content and thought process is linear and goal-directed. Memory and concentration: AOX3, grossly intact for the purposes of this session. Can spell "WORLD" backwards Judgment and insight: Poor IMPRESSIONS: Major depressive disorder, recurrent, moderate-severe PLAN: -At this time patient does meet criteria for inpatient psychiatric hospitalization. -Would recommend holding off on psychotropic medications at this time as patient is recovering from DKA. -Continue 1:1 sitter for safety -When medically stable, patient is eligible for transfer to a psych bed when available. Please arrange with social insurance analyst for bed. Thank you for the consult 01/17/19 15:06
[2019-01-17 15:24] VITALS: BMI 16.2
[2019-01-17 15:58] LABS: Glucose,Whole Blood 217 mg/dL (75-99)
[2019-01-17 16:49] LABS: Glucose,Whole Blood 209 mg/dL (75-99)
[2019-01-17 17:00] LABS: African American GFR (CKD) >90 (>60 ml/min/1.73 sqM); Anion Gap 8 mmol/L; Blood Urea Nitrogen 13 mg/dL (9-20); Carbon Dioxide 30 mmol/L (22-30); Chloride 97 mmol/L (98-107); Glucose 170 mg/dL (74-99); Potassium 3.8 mmol/L (3.5-5.1); Sodium 135 mmol/L (137-145)
[2019-01-17] MEDS: DEXTROSE 5%-0.45% NACL 1,000 ML IV SCH (17:42)
[2019-01-17 20:06] LABS: African American GFR (CKD) >90 (>60 ml/min/1.73 sqM); Anion Gap 10 mmol/L; Blood Urea Nitrogen 14 mg/dL (9-20); Carbon Dioxide 28 mmol/L (22-30); Chloride 97 mmol/L (98-107); Glucose 306 mg/dL (74-99); Potassium 3.6 mmol/L (3.5-5.1); Sodium 135 mmol/L (137-145)
[2019-01-17 20:37] LABS: Glucose,Whole Blood 341 mg/dL (75-99)
[2019-01-17] MEDS: INSULIN DETEMIR (LEVEMIR) 100 UNIT/ML SYR SQ SCH (21:07)
[2019-01-18 06:28] LABS: Glucose,Whole Blood 207 mg/dL (75-99)
[2019-01-18] MEDS: INSULIN ASPART (NovoLOG) 100 UNIT/ML VIAL SQ SCH ×7 (07:07→21:16)
[2019-01-18 11:26] LABS: Basophils # (A) 0.1 k/uL (0-0.2); Basophils % (A) 1 %; Eosinophils # (A) 0.3 k/uL (0-0.7); Eosinophils % (A) 3 %; HCT 48.8 % (39.0-53.0); HGB 16.8 gm/dL (13.0-17.5); Lymphocytes # (A) 2.8 k/uL (1.0-4.8); Lymphocytes % (A) 29 %; MCH 30.7 pg (25.0-35.0); MCHC 34.3 g/dL (31.0-37.0); MCV 89.4 fL (80.0-100.0); Mean Platelet Volume 6.2; Monocytes # (A) 0.5 k/uL (0-1.0); Monocytes % (A) 5 %; Neutrophils # (A) 5.9 k/uL (1.3-7.7); Neutrophils % (A) 61 %; Platelet Count 343 k/uL (150-450); RBC 5.46 m/uL (4.30-5.90); RDW 12.4 % (11.5-15.5); WBC 9.7 k/uL (3.8-10.6)
[2019-01-18 11:32] LABS: ALT 38 U/L (21-72); AST 22 U/L (17-59); African American GFR (CKD) >90 (>60 ml/min/1.73 sqM); Alkaline Phosphatase 60 U/L (38-126); Anion Gap 9 mmol/L; Blood Urea Nitrogen 17 mg/dL (9-20); Calcium 9.2 mg/dL (8.4-10.2); Carbon Dioxide 33 mmol/L (22-30); Chloride 96 mmol/L (98-107); Glucose 224 mg/dL (74-99); Sodium 138 mmol/L (137-145); Total Bilirubin 0.4 mg/dL (0.2-1.3); Total Protein 6.6 g/dL (6.3-8.2)
[2019-01-18 12:13] LABS: Glucose,Whole Blood 292 mg/dL (75-99)
[2019-01-18] MEDS: DEXTROSE 5%-0.45% NACL 1,000 ML IV SCH (12:21)
--- NOTE | 2019-01-18 16:37 | HP ---
HISTORY AND PHYSICAL CHIEF COMPLAINT: DKA major depression with suicidal thoughts. HISTORY OF PRESENT ILLNESS: This is another of many admissions for this 23-year-old noncompliant type 1 juvenile- onset diabetes mellitus with depression. He does not come to the office or follow up on his appointments. He lives with his sister. Apparently there were problems there. Whenever he becomes depressed and despondent, he stops taking his insulin and comes in with DKA and frequently professes being suicidal. This was the case again this time. Blood sugar was over 400. His anion gap was normal. REVIEW OF SYSTEMS: He has no new complaints but does admit that he was suicidal. He has had no vomiting, chest pain, abdominal pain, etc. Past medical history, family history, and personal and social histories are otherwise unremarkable or unchanged. Besides the basal bolus insulin program, he is on trazodone. The remainder of his history is unremarkable and unchanged. PHYSICAL EXAMINATION: Blood pressure is 126/86 with a pulse of 114 and regular, respirations of 40. He is afebrile. In general he appeared to be slender and in no acute distress. Skin color was normal. Skin was warm and dry. Lymph nodes were not enlarged. Head, ears, eyes, nose, mouth and throat were normal except for dry mucous membranes. The neck was supple. Pupils were equal, round and reactive and gaze was conjugate. Chest was clear. Cardiac exam demonstrated sinus tachycardia. The abdomen was flat, soft and nontender without any masses or visceromegaly. Extremities were normal. Neurologically he was intact. IMPRESSION: 1. Dehydration. 2. Diabetic ketoacidosis. 3. Major depression. 4. Suicidal personality. 5. Uncontrolled type 1 insulin-dependent diabetes mellitus. PLAN: 1. Bed rest. 2. IV fluids. 3. Suicide precautions. 4. Correct acid/base balance, blood sugars and dehydration. 5. Psych consult. MMODL / IJN: [id number] /
[2019-01-18 16:50] LABS: Glucose,Whole Blood 257 mg/dL (75-99)
[2019-01-18 19:28] LABS: Hemoglobin A1C 13.9 % (4.0-6.0)
[2019-01-18 20:46] LABS: Glucose,Whole Blood 228 mg/dL (75-99)
[2019-01-18] MEDS: INSULIN DETEMIR (LEVEMIR) 100 UNIT/ML SYR SQ SCH (21:16)
--- NOTE | 2019-01-18 23:23 | DS ---
DISCHARGE SUMMARY CHIEF COMPLAINT: DKA and depression. HISTORY OF PRESENT ILLNESS AND PHYSICAL EXAMINATION: Details of this man's history and physical can be found in the initial workup. LABORATORY STUDIES: While he was in the hospital he had laboratory studies, details of which can be found in the laboratory section of his chart. COURSE IN THE HOSPITAL: After admission he was placed on bedrest, started on intravenous fluids and rehydrated. Acid/base balance was improved. Blood sugars were starting to come down. He was seen by Psych and they requested that he be transferred to the psych unit. This will be done on January 18. FINAL DIAGNOSES: 1. Diabetic ketoacidosis. 2. Dehydration. 3. Type 1 insulin-dependent diabetes mellitus. 4. Noncompliant patient. 5. Major depression. 6. Suicidal personality. OPERATIONS: None. CONSULTATION: Psychiatry. He is improved. MMODL / IJN: [id number] /
[2019-01-19 07:12] LABS: Glucose,Whole Blood 138 mg/dL (75-99)
[2019-01-19] MEDS: DEXTROSE 5%-0.45% NACL 1,000 ML IV SCH (07:27)
[2019-01-19] MEDS: INSULIN ASPART (NovoLOG) 100 UNIT/ML VIAL SQ SCH ×7 (07:29→21:08)
[2019-01-19 11:59] LABS: Glucose,Whole Blood 265 mg/dL (75-99)
[2019-01-19 15:36] VITALS: RESP 16
[2019-01-19 17:05] LABS: Glucose,Whole Blood 208 mg/dL (75-99)
--- NOTE | 2019-01-19 18:06 | PN ---
PROGRESS NOTE Note this patient was discharged yesterday and was to go to the psych unit. Last night about 7 or 8 o'clock I received a call from his nurse that the psych unit would not take him because my discharge summary did not say, "cleared." When I got the call in the early afternoon, the patient could be sent to psych, I reviewed his laboratory studies and vital signs after having seen him that morning and it was clear that he was stable and was discharged to the psych unit and no further documentation is necessary. He would not have been discharged from the medical service unless he was stable enough to go to receive his care by Psychiatry. MMODL / IJN: [id number] /
[2019-01-19 20:24] LABS: Glucose,Whole Blood 275 mg/dL (75-99)
[2019-01-19] MEDS ORDERED: INSULIN DETEMIR (LEVEMIR) 100 UNIT/ML SYR SQ SCH (21:00)
[2019-01-20] MEDS: DEXTROSE 5%-0.45% NACL 1,000 ML IV SCH (02:27)
[2019-01-20 07:07] LABS: Glucose,Whole Blood 94 mg/dL (75-99)
[2019-01-20] MEDS: INSULIN ASPART (NovoLOG) 100 UNIT/ML VIAL SQ SCH ×2 (07:29→07:48)
[2019-01-20 08:21] VITALS: BP 117/83; PULSE 100; TEMP 97.7
[2019-01-20 12:01] LABS: Glucose,Whole Blood 175 mg/dL (75-99)
--- NOTE | 2019-01-20 18:10 | PN ---
PROGRESS NOTE This patient is still on this floor. He states that he is slated to go to the psych unit today. He is awake and alert and oriented. Color is good. Exam is normal. IMPRESSION: 1. Acute alcohol intoxication. 2. Major depression. 3. Suicidal personality. 4. Noncompliant individual. 5. Type 1 insulin-dependent diabetes mellitus with poor control. MMSHANEL / IJN: [id number] /
== END 2019-01-20 12:15 ==
LOC: EC 22:08 → INTOOBSV 01-17 12:09 → 3SCARD 01-17 12:09 → 4SSUR 01-18 22:13 → UNDODISIN 01-20 12:15
PROVIDERS: ADMIT Family Medicine; ATTEND Family Medicine
DX: E10.10 Type 1 diabetes mellitus with ketoacidosis without coma (principal); F33.2 Major depressive disorder, recurrent severe without psychotic features; R45.851 Suicidal ideations; E10.43 Type 1 diabetes mellitus with diabetic autonomic (poly)neuropathy; K31.84 Gastroparesis; E86.0 Dehydration; F10.129 Alcohol abuse with intoxication, unspecified; J45.909 Unspecified asthma, uncomplicated; L98.9 Disorder of the skin and subcutaneous tissue, unspecified; F41.9 Anxiety disorder, unspecified; Z91.19 Patient's noncompliance with other medical treatment and regimen; Z79.4 Long term (current) use of insulin; Z79.899 Other long term (current) drug therapy; Z91.5 Personal history of self-harm; Z82.49 Family history of ischemic heart disease and other diseases of the circulatory system; Z83.49 Family history of other endocrine, nutritional and metabolic diseases; Z81.8 Family history of other mental and behavioral disorders
CPT/HCPCS: 82075; 96360; 99285; 36415 ×2; 80051; 80053 ×3; 82565; 82803; 82009 ×2; 83605; 84100; 82947; 84520; 85025 ×2; 81003; 80306; 83036; G0378 ×5; G0480; 80320

== ENCOUNTER 2019-01-20 11:48 | Inpatient (IN) | payer MEDICAID ==
[2019-01-20 12:42] LABS: Glucose,Whole Blood 174 mg/dL (75-99)
[2019-01-20] MEDS ORDERED: ACETAMINOPHEN TAB 325 MG TAB PO PRN (12:42)
[2019-01-20] MEDS ORDERED: MAG HYDROX/AL HYDROX/SIMETH 30 ML CUP PO PRN (12:42)
[2019-01-20] MEDS ORDERED: MAGNESIUM HYDROXIDE 2,400 MG/10 ML CUP PO PRN (12:42)
[2019-01-20] MEDS: INSULIN ASPART (NovoLOG) 100 UNIT/ML VIAL SQ SCH ×5 (13:32→22:22)
[2019-01-20] MEDS: SERTRALINE 50 MG TAB PO SCH (14:53)
--- NOTE | 2019-01-20 15:22 | P.HP ---
Psychiatric H&P - . H&P Date: 01/20/19 History & Physical: Allergies Allergy/AdvReac Type Severity Reaction Status Date / Time No Known Allergies Allergy Verified 01/20/19 13:47 Vital Signs Temp 97.0 F L 01/20/19 13:04 Pulse 102 H 01/20/19 13:04 Resp 18 01/20/19 13:04 BP 111/76 01/20/19 13:04 Pulse Ox 99 01/20/19 13:04 Intake & Output 01/19/19 01/20/19 01/20/19 18:59 06:59 18:59 Weight 58.3 kg Laboratory Last Values POC Glucose (mg/dL) 174 mg/dL (75-99) H 01/20/19 12:38 POC Glu Furnace Hand Cherri Lauren 01/20/19 12:38 01/20/19 15:10 IDENTIFYING DATA: Patient is a 23-year-old male who currently lives with his sister and her boyfriend and also rotates between his friends places, currently unmarried. HISTORY OF PRESENT ILLNESS: The patient was brought into the hospital in [facility] with blood sugars above 400, was weak and confused and also stated that he was suicidal. Psychiatry was initially consulted for depression and suicidal ideations while patient was admitted to the medical floors. Patient initially stated that prior to coming into the hospital he wanted to try "a bit of acid" and states that he usually tries it and wanders off a little bit and then comes back home however he states that he had a "bad trip". He started feeling weak and his blood sugars were not under control. Patient claimed that he has been noncompliant with his insulin regimen and also diet. He stated that she'll eat intermittently throughout the day and not pay attention to his blood sugars. He states that he feels hopeless and helpless with Tourette's to his diabetes and life and states that he does not like living dependent on other people. 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 Patient stated that this has been causing him a lot of stress over the past few years and has been a barrier for him to get a job and also make doctors appointments. He claimed that he does not have the certain requirements that the belt fixer's looking for, which is making it difficult for him. Patient admitted to depressed mood and stated that he has been depressed for several years now. He denies any anxiety at this time. He states that he sleeps poorly 1-2 hours a night and has poor energy. Patient denied homical ideations however does admit to passive SI with no intent or plan. Patient denied any auditory, visual hallucinations and denies any paranoia or delusions. After being admitted to the unit, patient was calmer and cooperative and appeared to have a brighter look on his future and better insight into his condition. Patient was agreeable to start medications and begin treatment on the mental health unit. Patient signed voluntary for medications and for hospitalization. PAST PSYCHIATRIC HISTORY: Patient has been admitted to the mental health unit several times in the past with the last admission being in 09/2018. Patient was previously put on an discharged with Prozac 40 mg daily, Wellbutrin 300 mg daily and trazodone 300 mg daily at bedtime and Lamictal 200 mg daily. Patient claims that he did have 1 previous suicide attempt where he attempted to overdose on insulin 4 years ago. Patient denies any outpatient follow-up in the community for psychiatric care. PAST MEDICAL HISTORY: Diabetes mellitus type 1. ALLERGIES: No known drug allergies. CHEMICAL DEPENDENCY HISTORY: Claims to smoke marijuana approximately one joint a day and claims to use acid periodically. FAMILY PSYCHIATRIC HISTORY: Mother and father both suffered from depression. Denies any family history of suicide completion. FAMILY CHEMICAL DEPENDENCY HISTORY:denies. SOCIAL HISTORY: He states that he made it up until 11th grade in high school and dropped out. Patient claims that he is unemployed for the past 2-3 years and currently lives with his sister and her boyfriend and often goes between friends where he lives. Patient is unmarried and has no kids. MENTAL STATUS EXAM: General Appearance: Patient appears to be thin an tall, stated age is alert, cooperative however was guarded and evasive at times. Poor hygiene and grooming. Behavior: Patient is seated in chair, no agitation. Speech: Patient's speech is fluent and nonpressured. Soft tone Mood/Affect: Patient reports their mood is dysthymic, affect is congruent Suicidality/Homicidality: Patient denies any suicidal ideations, with no plan or intent. Denies any homicidal ideations. Perceptions: Patient denies any auditory or visual hallucinations. Though content/process: There is no evidence of any delusional thought content and thought process is linear and goal-directed. Memory and concentration: AOX3, grossly intact for the purposes of this session. Can spell "WORLD" backwards Judgment and insight: Poor, improving mildly. STRENGTHS/WEAKNESSES: Has good social support. Poor coping skills and chronic medical and psychiatric history. INTELLECT: Below average IMPRESSIONS: Major depressive disorder, recurrent, moderate-severe Cannabis use disorder Hallucinogen abuse PLAN: -Patient is admitted under voluntary status to MHU for stabilization of psychiatric symptoms and safety. Patient signed adult voluntary form and medication consent and is placed in patient's chart. -Medications : Will start patient on Zoloft 50 mg daily with 1 dose now for mood and anxiety. We'll also restart patient on trazodone 50 mg daily at bedtime for mood and insomnia. Melatonin 3 mg daily at bedtime when necessary for sleep. -Ativan PRN for agitation/aggression -Patient was counselled on substance abuse and desired to cut back on use. Patient has superficial insight with regards to his substance use. -Patient was informed of the risks, benefits and side effects of the medication and patient verbally consented to taking the medications. Patient signed med consent form and was placed in chart. -Blood sugars have improved. Patient to remain on current insulin regimen and will be closely monitored by medical doctor. Vital signs improved however patient remains mildly tachycardic. -NRT - not needed as patient does not smoke. -SW on board for discharge planning. 01/20/19 15:21
[2019-01-20 17:24] LABS: Glucose,Whole Blood 112 mg/dL (75-99)
[2019-01-20] MEDS ORDERED: INSULIN ASPART (NovoLOG) 100 UNIT/ML VIAL SQ SCH ×2 (17:30)
[2019-01-20 20:20] LABS: Glucose,Whole Blood 238 mg/dL (75-99)
[2019-01-20] MEDS ORDERED: traZODone HCL 50 MG TAB PO SCH (21:00)
[2019-01-20] MEDS: INSULIN DETEMIR (LEVEMIR) 100 UNIT/ML SYR SQ SCH (22:23)
[2019-01-21 07:22] LABS: Glucose,Whole Blood 94 mg/dL (75-99)
[2019-01-21 07:38] LABS: Glucose,Whole Blood 146 mg/dL (75-99)
[2019-01-21] MEDS: INSULIN ASPART (NovoLOG) 100 UNIT/ML VIAL SQ SCH ×7 (08:17→20:31)
[2019-01-21 08:53] VITALS: BMI 16.0
[2019-01-21] MEDS: SERTRALINE 50 MG TAB PO SCH (09:43)
--- NOTE | 2019-01-21 10:03 | P.PN ---
Progress Note - Text Progress Note Date: 01/21/19 Interval History: Patient was seen in the hallways prior to going to group and was agreeable to speak to ad copy writer in the office. Patient was more directable today and more open with ad copy writer stating that she realizes how bad he was treating his body and claims that he needs to have a better outlook on his diabetes and management. Patient claims that he is going to groups and is finding them helpful. He states that he is able to "talk to people outside of my [place]" and states that he is able to listen to other people's stories and their perspectives on life. He states that his mood is gradually improving along with his anxiety. He states that his sleep was a little bit better yesterday and claims that he could tolerate a higher dose of trazodone at this time. He claims his energy level is fair. At this time patient denies any suicidal or homical ideations, intent or plan. Patient denies any auditory, visual hallucinations and denies any paranoia or delusions. Patient denies any side effects from the medications and has been compliant with meds. Mental Status Exam: General Appearance: Patient appears to be thin an tall, stated age is alert, cooperative. Improving hygiene and grooming. Behavior: Patient is seated in chair, no agitation. Speech: Patient's speech is fluent and nonpressured. Mood/Affect: Patient reports their mood is "a little better", affect is congruent and constricted Suicidality/Homicidality: Patient denies any suicidal ideations, with no plan or intent. Denies any homicidal ideations. Perceptions: Patient denies any auditory or visual hallucinations. Though content/process: There is no evidence of any delusional thought content and thought process is linear and goal-directed. Memory and concentration: AOX3, grossly intact for the purposes of this session. Judgment and insight: Poor, improving mildly. Assessment Major depressive disorder, recurrent, moderate-severe Cannabis use disorder Hallucinogen abuse Plan: -Patient continues to meet criteria for inpatient psychiatric admission under voluntary status for symptom stabilization and safety. Patient did sign adult voluntary form and medication consent and is placed in patient's chart. -Medications: Will continue Zoloft 50 mg daily for mood and anxiety. We'll continue increasing as tolerated. Will increase trazodone to 100 mg daily at bedtime for mood and insomnia. Can continue with melatonin 3 mg daily at bedtime when necessary for sleep. -When necessary Ativan for agitation/aggression. -Blood sugars have appeared to be stabilized on current insulin regimen and will be closely monitored by medical doctor and staff. We'll continue to monitor vital signs at this time. -NRT - not needed as patient does not smoke. -SW on board for discharge planning.
[2019-01-21 12:38] LABS: Glucose,Whole Blood 162 mg/dL (75-99)
[2019-01-21 17:38] LABS: Glucose,Whole Blood 132 mg/dL (75-99)
[2019-01-21 20:06] LABS: Glucose,Whole Blood 175 mg/dL (75-99)
[2019-01-21] MEDS: INSULIN DETEMIR (LEVEMIR) 100 UNIT/ML SYR SQ SCH (20:31)
[2019-01-21] MEDS ORDERED: traZODone HCL 100 MG TAB PO SCH (21:00)
[2019-01-22 04:02] LABS: Glucose,Whole Blood 63 mg/dL (75-99)
[2019-01-22 04:15] LABS: Glucose,Whole Blood 90 mg/dL (75-99)
[2019-01-22 04:34] LABS: Glucose,Whole Blood 159 mg/dL (75-99)
--- NOTE | 2019-01-22 06:02 | CONS ---
CONSULTATION CHIEF COMPLAINT: Major depression with suicidal thoughts and uncontrolled type 1 insulin-dependent diabetes mellitus. HISTORY OF PRESENT ILLNESS: This gentleman has been transferred from medical floor once again where he was treated for DKA. He becomes extremely depressed, stops taking his insulin and comes in a DKA with depression and frequently talks about suicide. He is noncompliant. He will not follow up in the office for management of his diabetes or work with our criminal justice social worker. REVIEW OF SYSTEMS: He is having no problems including headaches, blurred vision, chest pain, shortness of breath, abdominal pain, nausea, vomiting, diarrhea, incontinence, etc. Past medical history, family history and personal and social histories are unremarkable and accompanying him from the floor. PHYSICAL EXAMINATION: Blood pressure is 126/64 with a pulse of 78 respirations of 10, and he is afebrile. GENERAL: He appeared to be slender, normal color and normal hydration. Head, ears, eyes, nose, mouth, and throat were normal. Neck veins are not distended. Chest is clear. Cardiac exam is normal. Abdomen is flat, soft. It is nontender. Bowel sounds present. Extremities are normal. Neurologically, he is intact. He has a somewhat flat facies. IMPRESSION: 1. Major depression. 2. Suicidal personality. 3. Noncompliant individual. 4. Type 1 insulin-dependent diabetes mellitus and poor control. RECOMMENDATIONS: Follow blood sugar, which seems to be doing very nicely at this time. MMODL / IJN: [id number] /
[2019-01-22 07:44] LABS: Glucose,Whole Blood 165 mg/dL (75-99)
[2019-01-22] MEDS: INSULIN ASPART (NovoLOG) 100 UNIT/ML VIAL SQ SCH ×7 (07:55→20:37)
[2019-01-22] MEDS: SERTRALINE 50 MG TAB PO SCH (08:48)
--- NOTE | 2019-01-22 10:04 | P.PN ---
Progress Note - Text Progress Note Date: 01/22/19 Interval History: Patient was seen in the hallways prior to going to group and was agreeable to speak to technical publications writer in the office. Patient appeared to be calmer this morning and was more open about his feelings and his home situation. He states that at home he is only on food stamps and only gets $190 per month for food and finds it difficult to manage for his diabetes. He also states that he is still living with his sister and her boyfriend and want to look at other housing options in the future. Patient claims that he is going to groups and is finding them helpful and he is able to express some of his emotions and feelings. He states that his mood is gradually improving along with his anxiety. He states that his sleep is still poor and is requesting an increase in his trazodone at this time. He claims his energy level is fair. At this time patient denies any suicidal or homical ideations, intent or plan. Patient denies any auditory, visual hallucinations and denies any paranoia or delusions. Patient denies any side effects from the medications and has been compliant with meds. Mental Status Exam: General Appearance: Patient appears to be thin an tall, stated age is alert, cooperative. Improving hygiene and grooming. Behavior: Patient is seated in chair, no agitation. Speech: Patient's speech is fluent and nonpressured. Mood/Affect: Patient reports their mood is "about the same", affect is congruent and constricted Suicidality/Homicidality: Patient denies any suicidal ideations, with no plan or intent. Denies any homicidal ideations. Perceptions: Patient denies any auditory or visual hallucinations. Though content/process: There is no evidence of any delusional thought content and thought process is linear and goal-directed. Memory and concentration: AOX3, grossly intact for the purposes of this session. Judgment and insight: Poor, improving mildly Assessment: Major depressive disorder, recurrent, moderate-severe Cannabis use disorder Hallucinogen abuse Plan: -Patient continues to meet criteria for inpatient psychiatric admission under voluntary status for symptom stabilization and safety. Patient did sign adult voluntary form and medication consent and is placed in patient's chart. -Medications: Will continue increasing Zoloft 100 mg daily for mood and anxiety. We'll continue increasing as tolerated. Will increase trazodone to 150 mg daily at bedtime for mood and insomnia. Can continue with melatonin 3 mg daily at bedtime when necessary for sleep. -When necessary Ativan for agitation/aggression. -Blood sugars have appeared to be stabilized on current insulin regimen and will be closely monitored by medical doctor and staff. We'll continue to monitor vital signs at this time. -NRT - not needed as patient does not smoke. -SW on board for discharge planning.
[2019-01-22 12:36] LABS: Glucose,Whole Blood 125 mg/dL (75-99)
[2019-01-22 17:44] LABS: Glucose,Whole Blood 163 mg/dL (75-99)
[2019-01-22 20:12] LABS: Glucose,Whole Blood 140 mg/dL (75-99)
[2019-01-22] MEDS: INSULIN DETEMIR (LEVEMIR) 100 UNIT/ML SYR SQ SCH (20:37)
[2019-01-22] MEDS ORDERED: traZODone HCL 50 MG TAB PO SCH (21:00)
[2019-01-22] MEDS: MELATONIN 3 MG TABLET PO PRN (22:28)
[2019-01-23 03:19] LABS: Glucose,Whole Blood 154 mg/dL (75-99)
[2019-01-23 07:01] LABS: Glucose,Whole Blood 66 mg/dL (75-99)
[2019-01-23 07:19] LABS: Glucose,Whole Blood 84 mg/dL (75-99)
[2019-01-23 07:42] LABS: Glucose,Whole Blood 175 mg/dL (75-99)
[2019-01-23] MEDS: INSULIN ASPART (NovoLOG) 100 UNIT/ML VIAL SQ SCH ×8 (08:04→21:11)
[2019-01-23] MEDS: SERTRALINE 100 MG TAB PO SCH (08:04)
[2019-01-23 12:33] LABS: Glucose,Whole Blood 151 mg/dL (75-99)
[2019-01-23 17:22] LABS: Glucose,Whole Blood 170 mg/dL (75-99)
--- NOTE | 2019-01-23 17:55 | P.PN ---
Progress Note - Text Progress Note Date: 01/23/19 IDENTIFICATION DATA: 23-year-old male, transferred from medical floor for stabilization of depression. He was admitted to medical floor for DKA. INTERVAL HISTORY: Patient was seen today. He reports being complaint with his medications. Denies any side effects. He reports poor sleep and stated he was taking trazadone at the dose of 300mg prior to his admission. He also reports feeling depressed and attributes his depression to not getting good restful sleep. He also reports feeling bothered about a patients behavior on the unit, says he has been trying not to get too vested in the situation and reports to have complained to staff about this problematic patient. MENTAL STATUS EXAMINATION: 23 year old male, appears in fair grooming and hygiene. Maintains good eye contact. speech and thought process are goal directed. Mood is reported as sad and affect appropriate. Denies current auditory or visual hallucinations. Denies paranoid ideations. he is alert and oriented x 4. Denies current suicidal and homicidal ideations. insight and judgment are improving. ASSESSMENT Major depressive disorder, recurrent, moderate-severe, Cannabis use disorder, Hallucinogen abuse LSD PLAN: Will increase the dos e of trazadone from 150mg po qhs to 200mg po qhs. Continue zoloft and melatonin.
[2019-01-23 20:07] LABS: Glucose,Whole Blood 149 mg/dL (75-99)
[2019-01-23] MEDS: INSULIN DETEMIR (LEVEMIR) 100 UNIT/ML SYR SQ SCH (21:00)
[2019-01-23] MEDS ORDERED: traZODone HCL 100 MG TAB PO SCH (21:00)
[2019-01-23] MEDS: MELATONIN 3 MG TABLET PO PRN (22:06)
[2019-01-24 04:31] LABS: Glucose,Whole Blood 98 mg/dL (75-99)
[2019-01-24 07:48] LABS: Glucose,Whole Blood 91 mg/dL (75-99)
[2019-01-24] MEDS: INSULIN ASPART (NovoLOG) 100 UNIT/ML VIAL SQ SCH ×7 (08:05→20:34)
[2019-01-24] MEDS: SERTRALINE 100 MG TAB PO SCH (08:53)
[2019-01-24 12:24] LABS: Glucose,Whole Blood 236 mg/dL (75-99)
[2019-01-24 17:40] LABS: Glucose,Whole Blood 152 mg/dL (75-99)
--- NOTE | 2019-01-24 18:05 | P.PN ---
Progress Note - Text Progress Note Date: 01/24/19 IDENTIFICATION DATA: 23-year-old male, transferred from medical floor for stabilization of depression. He was admitted to medical floor for DKA. INTERVAL HISTORY: Patient was seen today. He reports feeling sad and hopeless about not having his Stated ID and rates his depression at 6/10, 10 being worst. He reports to tigre talked to certified social workers in health care about procedure to obtain his State ID. He stated he will work on obtaining necessary documents allowing him to apply for [employer] ID. He reports to have completed 11 th grade education and wants to obtain his GED which will also help him to obtain his ID. He stated his goal is to obtain a job. He currently reports feeling zoomy and wonders if it is from using LSD or is it due to his high blood sugars. He reports to have slept only for four hours last night and stated he is used to take trazadone at dose of 300mg. He is compliant with his medications no side effects reported. MENTAL STATUS EXAMINATION: 23 year old male, appears in fair grooming and hygiene. Maintains good eye contact. speech and thought process are goal directed. Mood is reported as depressed and affect constricted. Denies current auditory or visual hallucinations. Denies paranoid ideations. he is alert and oriented x 4. Denies current suicidal and homicidal ideations. insight and judgment are improving. ASSESSMENT Major depressive disorder, recurrent, moderate-severe, Cannabis use disorder, Hallucinogen abuse LSD PLAN: Will increase the dose of trazadone from 200 po qhs to 300mg po qhs Continue zoloft and melatonin.
[2019-01-24 20:05] LABS: Glucose,Whole Blood 109 mg/dL (75-99)
[2019-01-24] MEDS: traZODone HCL 100 MG TAB PO SCH (20:54)
[2019-01-24] MEDS: INSULIN DETEMIR (LEVEMIR) 100 UNIT/ML SYR SQ SCH (20:56)
[2019-01-24] MEDS: MELATONIN 3 MG TABLET PO PRN (20:56)
[2019-01-25 03:55] LABS: Glucose,Whole Blood 61 mg/dL (75-99)
[2019-01-25 04:07] LABS: Glucose,Whole Blood 73 mg/dL (75-99)
[2019-01-25 04:23] LABS: Glucose,Whole Blood 126 mg/dL (75-99)
[2019-01-25 07:47] LABS: Glucose,Whole Blood 130 mg/dL (75-99)
[2019-01-25] MEDS: INSULIN ASPART (NovoLOG) 100 UNIT/ML VIAL SQ SCH ×7 (09:31→20:59)
[2019-01-25] MEDS: SERTRALINE 100 MG TAB PO SCH (09:32)
--- NOTE | 2019-01-25 09:46 | P.PN ---
Progress Note - Text Progress Note Date: 01/25/19 Interval History: Patient was seen in the hallways after he was receiving his a.m. medications and was agreeable to speak to group underwriter in the office. Patient appeared to be calm this morning and spoke to group underwriter about his weekend states that he was in going to groups and talking with other patients. He states that his sleep is still poor and has been titrated up to 300 mg of trazodone along with melatonin. Patient states that he would like to try Benadryl at night for sleep maintenance. He st ates that his mood is gradually improving however he is at a 6 out of 10 and claims that she would like to be increased on his Zoloft at this time. He claims his energy level is fair. At this time patient denies any suicidal or homical ideations, intent or plan. Patient denies any auditory, visual hallucinations and denies any paranoia or delusions. Patient denies any side effects from the medications and has been compliant with meds. Mental Status Exam: General Appearance: Patient appears to be thin an tall, stated age is alert, cooperative. Improving hygiene and grooming. Behavior: Patient is seated in chair, no agitation. Speech: Patient's speech is fluent and nonpressured. Mood/Affect: Patient reports their mood is "a bit better", affect is congruent and constricted Suicidality/Homicidality: Patient denies any suicidal ideations, with no plan or intent. Denies any homicidal ideations. Perceptions: Patient denies any auditory or visual hallucinations. Though content/process: There is no evidence of any delusional thought content and thought process is linear and goal-directed. Memory and concentration: AOX3, grossly intact for the purposes of this session. Judgment and insight: Poor, improving mildly Assessment: Major depressive disorder, recurrent, moderate-severe Cannabis use disorder Hallucinogen abuse Plan: -Patient continues to meet criteria for inpatient psychiatric admission under voluntary status for symptom stabilization and safety. Patient did sign adult voluntary form and medication consent and is placed in patient's chart. -Medications: Will continue increasing Zoloft to 150 mg daily for mood and anxiety. Will continue with trazodone 300 mg daily at bedtime for mood and insomnia. Can continue with melatonin 3 mg daily at bedtime when necessary for sleep. Ordered 25 mg of Benadryl daily at bedtime with plan to increase as tolerated. -When necessary Ativan for agitation/aggression. -Blood sugars have appeared to be stabilized on current insulin regimen and will be closely monitored by medical doctor and staff. We'll continue to monitor vital signs at this time. -NRT - not needed as patient does not smoke. -SW on board for discharge planning.
[2019-01-25 12:01] LABS: Glucose,Whole Blood 82 mg/dL (75-99)
[2019-01-25 12:51] LABS: Glucose,Whole Blood 163 mg/dL (75-99)
[2019-01-25 17:44] LABS: Glucose,Whole Blood 238 mg/dL (75-99)
[2019-01-25 20:05] LABS: Glucose,Whole Blood 142 mg/dL (75-99)
[2019-01-25] MEDS: diphenhydrAMINE 25 MG CAP PO SCH (20:58)
[2019-01-25] MEDS: INSULIN DETEMIR (LEVEMIR) 100 UNIT/ML SYR SQ SCH (20:59)
[2019-01-25] MEDS: traZODone HCL 100 MG TAB PO SCH (21:00)
[2019-01-25] MEDS: MELATONIN 3 MG TABLET PO PRN (21:01)
[2019-01-26 03:08] LABS: Glucose,Whole Blood 85 mg/dL (75-99)
[2019-01-26 06:38] VITALS: RESP 16
[2019-01-26 06:47] LABS: Glucose,Whole Blood 67 mg/dL (75-99)
[2019-01-26 07:02] LABS: Glucose,Whole Blood 81 mg/dL (75-99)
[2019-01-26 07:55] LABS: Glucose,Whole Blood 176 mg/dL (75-99)
[2019-01-26] MEDS: INSULIN ASPART (NovoLOG) 100 UNIT/ML VIAL SQ SCH ×6 (08:59→17:57)
[2019-01-26] MEDS: SERTRALINE 100 MG TAB PO SCH (09:01)
--- NOTE | 2019-01-26 10:23 | P.PN ---
Progress Note - Text Progress Note Date: 01/26/19 Interval History: Patient was seen in the hallways after he was receiving his a.m. medications and was agreeable to speak to narrative writer in the office. Patient was calm and cooperative this morning and stated that he had a much better night last night. He states that his sleep had improved greatly and states that he slept approximately 8 hours last night which he feels has helped his mood. He states that his mood is gradually improving on the current medications and claims that he is tolerating the Zoloft and trazodone well. He claims his energy level is fair. He states that he has been going to groups and finding them helpful. Patient also states that he spoke with his sister who his sister claims that patient should be staying in the hospital for longer period of time and patient asked narrative writer if this was possible. At this time patient denies any suicidal or homical ideations, intent or plan. Patient denies any auditory, visual hallucinations and denies any paranoia or delusions. Patient denies any side effects from the medications and has been compliant with meds. Mental Status Exam: General Appearance: Patient appears to be thin and tall, stated age is alert, cooperative. Improving hygiene and grooming. Behavior: Patient is seated in chair, no agitation. Speech: Patient's speech is fluent and nonpressured. Mood/Affect: Patient reports their mood is "better", affect is congruent Suicidality/Homicidality: Patient denies any suicidal ideations, with no plan or intent. Denies any homicidal ideations. Perceptions: Patient denies any auditory or visual hallucinations. Though content/process: There is no evidence of any delusional thought content and thought process is linear and goal-directed. Memory and concentration: AOX3, grossly intact for the purposes of this session. Judgment and insight: Fair, improving mildly Assessment: Major depressive disorder, recurrent, moderate-severe Cannabis use disorder Hallucinogen abuse Plan: -Patient continues to meet criteria for inpatient psychiatric admission under voluntary status for symptom stabilization and safety. Patient did sign adult voluntary form and medication consent and is placed in patient's chart. -Medications: Will continue with Zoloft to 150 mg daily for mood and anxiety. Will continue with trazodone 300 mg daily at bedtime for mood and insomnia. Can continue with melatonin 3 mg daily at bedtime when necessary for sleep. Continue with 25 mg of Benadryl daily at bedtime with plan to increase as tolerated. -When necessary Ativan for agitation/aggression. -Blood sugars have appeared to be stabilized on current insulin regimen and will be closely monitored by medical doctor and staff. We'll continue to monitor vital signs at this time. -NRT - not needed as patient does not smoke. -SW on board for discharge planning. We'll touch base today with [facility] team to see what resources and assistance may be possible for patient upon discharge. Likely discharge in 1-2 days.
[2019-01-26 12:40] LABS: Glucose,Whole Blood 207 mg/dL (75-99)
[2019-01-26 15:41] LABS: Glucose,Whole Blood 84 mg/dL (75-99)
[2019-01-26 17:36] LABS: Glucose,Whole Blood 177 mg/dL (75-99)
[2019-01-26 20:03] LABS: Glucose,Whole Blood 124 mg/dL (75-99)
[2019-01-26] MEDS: INSULIN DETEMIR (LEVEMIR) 100 UNIT/ML SYR SQ SCH (21:12)
[2019-01-26] MEDS: traZODone HCL 100 MG TAB PO SCH (21:16)
[2019-01-26] MEDS: diphenhydrAMINE 25 MG CAP PO SCH (21:16)
[2019-01-26] MEDS: MELATONIN 3 MG TABLET PO PRN (21:17)
[2019-01-27 03:10] LABS: Glucose,Whole Blood 116 mg/dL (75-99)
[2019-01-27 07:41] LABS: Glucose,Whole Blood 178 mg/dL (75-99)
[2019-01-27] MEDS: INSULIN ASPART (NovoLOG) 100 UNIT/ML VIAL SQ SCH ×2 (07:53→12:50)
[2019-01-27] MEDS: SERTRALINE 100 MG TAB PO SCH ×2 (09:14→09:23)
--- NOTE | 2019-01-27 09:15 | P.PN ---
Progress Note - Text Progress Note Date: 01/27/19 Interval History: Patient was seen in the hallways and was agreeable to speak to publicity writer in the o ffice this morning. Patient was calm, directable and cooperative this morning. Patient claims that he did not have a good night last night and recently sought around 2 hours. He states that he took his trazodone due to late and states that periodically he'll have anxiety and "restless leg" which prevented him from sleeping however patient states that this is very rare for it to happen. He states that his sleep and mood have in general been improving however states that his mood could still be improved more as he claims that he is preoccupied with thoughts about his life and his future. Patient states that he would like to have his Zoloft increased at this time. He claims his energy level is fair. He states that he has been going to groups and finding them helpful. Patient also spoke about him getting access to the yearbook with his picture and name on it which she can present to the estate attorney to get his ID to allow him to begin working. At this time patient denies any suicidal or homical ideations, intent or plan. Patient denies any auditory, visual hallucinations and denies any paranoia or delusions. Patient denies any side effects from the medications and has been compliant with meds. Mental Status Exam: General Appearance: Patient appears to be thin and tall, stated age is alert, cooperative. Improving hygiene and grooming. Behavior: Patient is seated in chair, no agitation. Speech: Patient's speech is fluent and nonpressured. Mood/Affect: Patient reports their mood is "could be better", affect is congruent Suicidality/Homicidality: Patient denies any suicidal ideations, with no plan or intent. Denies any homicidal ideations. Perceptions: Patient denies any auditory or visual hallucinations. Though content/process: There is no evidence of any delusional thought content and thought process is linear and goal-directed. Memory and concentration: AOX3, grossly intact for the purposes of this session. Judgment and insight: Fair, improving mildly Assessment: Major depressive disorder, recurrent, moderate-severe Cannabis use disorder Hallucinogen abuse Plan: -Patient continues to meet criteria for inpatient psychiatric admission under voluntary status for symptom stabilization and safety. Patient has signed an adult voluntary form and medication consent and is placed in patient's chart. -Medications: Will increase Zoloft to 200 mg daily for mood and anxiety. Will continue with trazodone 300 mg daily at bedtime for mood and insomnia. Can continue with melatonin 3 mg daily at bedtime when necessary for sleep. Continue with 25 mg of Benadryl daily at bedtime. -When necessary Ativan for agitation/aggression. -Blood sugars have appeared to be stabilized on current insulin regimen and will be closely monitored by medical doctor and staff. We'll continue to monitor vital signs at this time. -NRT - not needed as patient does not smoke. -SW on board for discharge planning. [facility] team to assist with possible resources for patient upon discharge. Likely discharge in 1-2 days.
[2019-01-27 12:40] LABS: Glucose,Whole Blood 141 mg/dL (75-99)
[2019-01-27] MEDS ORDERED: INSULIN ASPART (NovoLOG) 100 UNIT/ML VIAL SQ SCH (17:30)
[2019-01-27 17:41] LABS: Glucose,Whole Blood 184 mg/dL (75-99)
[2019-01-27 19:58] LABS: Glucose,Whole Blood 65 mg/dL (75-99)
[2019-01-27 20:38] LABS: Glucose,Whole Blood 198 mg/dL (75-99)
[2019-01-27] MEDS: INSULIN DETEMIR (LEVEMIR) 100 UNIT/ML SYR SQ SCH (21:02)
[2019-01-27] MEDS ORDERED: LORazepam 1 MG TAB PO STA (21:20)
[2019-01-27] MEDS: MELATONIN 3 MG TABLET PO PRN (21:47)
[2019-01-27] MEDS: diphenhydrAMINE 25 MG CAP PO SCH (21:47)
[2019-01-27] MEDS: traZODone HCL 100 MG TAB PO SCH (21:47)
[2019-01-28 03:10] LABS: Glucose,Whole Blood 107 mg/dL (75-99)
[2019-01-28 05:33] LABS: Glucose,Whole Blood 56 mg/dL (75-99)
[2019-01-28 06:11] VITALS: BP 97/59; PULSE 125; TEMP 97.9
[2019-01-28 06:28] LABS: Glucose,Whole Blood 142 mg/dL (75-99)
[2019-01-28 07:48] LABS: Glucose,Whole Blood 154 mg/dL (75-99)
[2019-01-28] MEDS: INSULIN ASPART (NovoLOG) 100 UNIT/ML VIAL SQ SCH ×2 (07:48→12:39)
[2019-01-28] MEDS: SERTRALINE 100 MG TAB PO SCH (09:01)
--- NOTE | 2019-01-28 10:33 | P.DS ---
Providers Date of admission: 01/20/19 12:18 Expected date of discharge: 01/28/19 Attending physician: Fer Merlos MD Consults: 01/20/19 12:42 Consult Physician Routine Consulting Provider: Brown Valenuzela Consult Reason/Comments: H & P and medical care Do you want consulting provider notified?: Yes Primary care physician: Brown Valenzuela - Discharge Diagnosis(es) (1) Major depressive disorder, recurrent episode Current Visit: Yes Status: Acute Priority: High (2) Cannabis abuse Current Visit: Yes Status: Acute Priority: Medium (3) Hallucinogen abuse Current Visit: Yes Status: Acute Priority: Medium Hospital Course: Admission HPI: Patient is a 23-year-old male who currently lives with his sister and her boyfriend and also rotates between his friends places, currently unmarried. The patient was brought into the hospital in [facility] with blood sugars above 400, was weak and confused and also stated that he was suicidal. Psychiatry was initially consulted for depression and suicidal ideations while patient was admitted to the medical floors. Patient initially stated that prior to coming into the hospital he wanted to try "a bit of acid" and states that he usually tries it and wanders off a little bit and then comes back home however he states that he had a "bad trip". He started feeling weak and his blood sugars were not under control. Patient claimed that he has been noncompliant with his insulin regimen and also diet. He stated that she'll eat intermittently throughout the day and not pay attention to his blood sugars. He states that he feels hopeless and helpless with Tourette's to his diabetes and life and states that he does not like living dependent on other people. Patient claims that he is unemployed and is not able to get a job due to the cutter operator not giving him a state ID. Patient stated that this has been causing him a lot of stress over the past few years and has been a barrier for him to get a job and also make doctors appointments. He claimed that he does not have the certain requirements that the cutter operator's looking for, which is making it difficult for him. Patient admitted to depressed mood and stated that he has been depressed for several years now. He denies any anxiety at this time. He states that he sleeps poorly 1-2 hours a night and has poor energy. Patient denied homical ideations however does admit to passive SI with no intent or plan. Patient denied any auditory, visual hallucinations and denies any paranoia or delusions. After being admitted to the unit, patient was calmer and cooperative and appeared to have a brighter look on his future and better insight into his condition. Patient was agreeable to start medications and begin treatment on the mental health unit. Patient signed voluntary for medications and for hospitalization. Hospital course: Upon admission to the unit patient was initially depressed, isolative and having passive suicidal ideations. Patient was however directable and agreeable to commence treatment. Patient got along well with other patients on the unit and followed unit protocol. Patient was compliant with the medications and denied any side effects throughout hospital course. Patient was started on Zoloft and titrated up to 200 mg daily for mood. Patient was also started on trazodone and titrated up to 300 mg nightly for mood and insomnia. Patient was also started on melatonin 3 mg which would be increased to 5 mg nightly. Patient was also started on Benadryl for insomnia and remained at 25 mg nightly for insomnia. Patient spoke of his stressors and engaged in therapy both group and individual. Patient was having difficulties obtaining his ID to allow him to start working which was causing him a lot of stress however patient managed to contact his high school friend who will be able to assist him with this and provide him with help to obtain his ID. Patient was also seen by medical team for history and physical exam. Patient's insulin was adjusted to control his blood sugars and patient had improved insight and goals to keep his blood sugars stable. Throughout the course of the hospitalization patient gradually improved with regards to mood, sleep and became future oriented with improved insight and judgment. On the day of discharge patient denied any suicidal or homicidal ideations intent or plan denied any auditory or visual hallucinations. Patient endorsed wanting to live to get a job and to improve his health. The patient denied any access to guns or weapons. Patient denied any paranoia and did not endorse any delusions. Patient does have a significant history of substance abuse and was counseled on abstaining from all substances including alcohol and marijuana. Patient was also counseled on the medications and need for regular compliance and was encouraged to follow-up with their outpatient appointment for mental health and also for primary care. Prior to discharge a family meeting will be arranged by social media designer to answer any questions and ensure safety upon discharge. Mental status exam: General Appearance: Patient appears to be tall and thin and is stated age is alert, pleasant, and cooperative. Patient is in no acute distress and has fair hygiene and grooming Behavior: Patient is calmly seated without any agitated behavior. Patient appears to have a brighter affect this morning. Speech: Patient's speech is fluent and nonpressured. Mood/Affect: Patient reports their mood is "better", affect is congruent and euthymic. Suicidality/Homicidality: Patient denies having any suicidal or homicidal ideation intent or plan. Perceptions: Patient denies any auditory or visual hallucinations. Though content/process: There is no evidence of any delusional thought content and thought process is linear and goal-directed. Patient is future oriented. Memory and concentration: AOX3, grossly intact for the purposes of this session. Can spell "WORLD" backwards correctly. Judgment and insight: fair, improved Impression: Major depressive disorder, recurrent, moderate severe Cannabis abuse Hallucinogen abuse Plan: -Continue with discharge today as patient has improved and stabilized psychiatrically and is not currently an imminent threat to himself and/or others. -Continue medications: Continue with Zoloft 200 mg daily for mood and anxiety. Continue with trazodone 300 mg nightly for mood and insomnia. Continue with melatonin 5 mg nightly for insomnia. Continue with Benadryl 25 mg nightly for insomnia. -Patient's blood sugars of appeared to be stabilized on current insulin regimen and patient was advised to closely monitor his blood sugars and follow-up with his primary care doc for adjustment if needed. -Patient was counseled on the need for medication compliance and appropriate follow-up at mental health and also primary care for medical issues. Patient verbalized understanding and agreed. -Social work to arrange for and conduct family meeting to ensure safety upon discharge and answer any questions/concerns. Social work also to arrange for patients follow up appointments at [facility] and to get a primary care appointment within 1 week for refill of his insulin. -Patient counseled on abstaining from recreational drugs and marijuana and alcohol. Was informed/educated on the adverse effects on their physical and mental health. At this time patient has superficial insight into his substance abuse and claims that she would like to cut back on his substance use on his own. -Patient was instructed to return to the hospital or seek immediate medical care if their psychiatric or medical systems do worsen or reoccur. Allergies Allergy/AdvReac Type Severity Reaction Status Date / Time No Known Allergies Allergy Verified 01/20/19 13:47 Laboratory Results POC Glucose (mg/dL) 154 mg/dL (75-99) H 01/28/19 07:47 POC Glu Contract Designer Kaci Das 01/28/19 07:47 Vital Signs Temp 97.9 F 01/28/19 05:29 Pulse 125 H 01/28/19 05:29 Resp 16 01/28/19 05:29 BP 97/59 01/28/19 05:29 Pulse Ox 99 01/20/19 13:04 Patient Condition at Discharge: Stable Plan - Discharge Summary New Discharge Prescriptions: New diphenhydrAMINE [Benadryl] 25 mg PO HS #28 cap traZODone HCL [Desyrel] 300 mg PO HS #40 tab Melatonin 5 mg PO HS PRN #28 tablet PRN Reason: Insomnia INSULIN ASPART (NovoLOG) [NovoLOG (formulary)] 10 unit SQ AC-SUPPER #1 vial INSULIN ASPART (NovoLOG) [NovoLOG (formulary)] 12 unit SQ 0730,1230 #1 vial Sertraline [Zoloft] 200 mg PO DAILY #28 tab Changed Insulin Glargine [Lantus] 28 unit SQ HS #1 vial Discontinued INSULIN LISPRO (humaLOG) [humaLOG] 12 units SQ AC-TID Discharge Medication List INSULIN ASPART (NovoLOG) [NovoLOG (formulary)] 10 unit SQ AC-SUPPER #1 vial 01/28/19 [Rx] INSULIN ASPART (NovoLOG) [NovoLOG (formulary)] 12 unit SQ 0730,1230 #1 vial 01/28/19 [Rx] Insulin Glargine [Lantus] 28 unit SQ HS #1 vial 01/28/19 [Rx] Melatonin 5 mg PO HS PRN #28 tablet 01/28/19 [Rx] Sertraline [Zoloft] 200 mg PO DAILY #28 tab 01/28/19 [Rx] diphenhydrAMINE [Benadryl] 25 mg PO HS #28 cap 01/28/19 [Rx] traZODone HCL [Desyrel] 300 mg PO HS #40 tab 01/28/19 [Rx] Follow up Appointment(s)/Referral(s): [facility] [Outside] - 02/02/19 10:30 am (Walk In Intake) Brown Valenzuela MD [Primary Care Provider] - 02/03/19 12:20 pm Activity/Diet/Wound Care/Special Instructions: Activity and diet as tolerated. Avoid the use of street drugs and alcohol. Take all medications as prescribed. When you are in need of refills on your medications please contact your medical provider and/or outpatient psychiatrist to have this done. Please go to scheduled outpatient appointment for aftercare treatment. If symptoms return or become worse, call the crisis line at and/or go to the nearest emergency room for evaluation. Discharge Disposition: HOME SELF-CARE
[2019-01-28 12:39] LABS: Glucose,Whole Blood 172 mg/dL (75-99)
== END 2019-01-28 14:41 | disposition home or self-care (01) | DRG 885 ==
LOC: 3MHU 12:18
PROVIDERS: ADMIT Psychiatry & Neurology Psychiatry; ATTEND Psychiatry & Neurology Psychiatry
DX: F33.1 Major depressive disorder, recurrent, moderate (principal); E10.10 Type 1 diabetes mellitus with ketoacidosis without coma; R45.851 Suicidal ideations; F95.2 Tourette's disorder; F16.10 Hallucinogen abuse, uncomplicated; F12.10 Cannabis abuse, uncomplicated; G25.81 Restless legs syndrome; F41.9 Anxiety disorder, unspecified; G47.00 Insomnia, unspecified; T38.3X6A Underdosing of insulin and oral hypoglycemic [antidiabetic] drugs, initial encounter; Z91.128 Patient's intentional underdosing of medication regimen for other reason; Z79.4 Long term (current) use of insulin; Z56.0 Unemployment, unspecified; Z91.5 Personal history of self-harm; Z81.8 Family history of other mental and behavioral disorders

== ENCOUNTER 2019-02-07 11:51 | Emergency (ER) | payer OTHER ==
[2019-02-07 12:03] VITALS: TEMP 97.5
[2019-02-07] MEDS ORDERED: SODIUM CHLORIDE 0.9% 1,000 ML IV STA (12:07)
[2019-02-07] MEDS ORDERED: SODIUM CHLORIDE 0.9% 500 ML 500 ML IV STA (12:07)
[2019-02-07 12:15] LABS: Glucose,Whole Blood >600 mg/dL (75-99)
--- NOTE | 2019-02-07 12:20 | ED ---
Weakness HPI - General Chief complaint: Weakness Stated complaint: pain all over Time Seen by Provider: 02/07/19 12:06 Source: patient Mode of arrival: ambulatory Limitations: no limitations - History of Present Illness Initial comments: 23-year-old male with history of uncontrolled type 1 diabetes presents today for chief complaint of pain all over x 1 day. Patient states she has sensation of pins and needles in his feet and pain all over his body. Patient states he is concerned this is related to diabetic neuropathy. Patient denies any focal wea kness states he is a overall general sense of weakness. Patient states that he hasn't had any nausea vomiting chest pain or shortness of breath. Patient states that he has been for the past few weeks controlling his sugars and they have been between 100 200 however this morning he states he had elevated blood glucose. Last A1C between -. No recent eye exam. Follow diabetic treatment with Dr. Valenzuela but missed last appointment, states he has insulin and glucometer supplies. Patient states the pain began last night. Patient denies any visual changes. Patient denies any speech changes diplopia changes in gait or sensation deficits. Remaining review of system negative. Upon arrival p atient appears well no signs of acute distress. HR elevated on arrival. - Related Data Home Medications Medication Instructions Recorded Confirmed INSULIN ASPART (NovoLOG) [NovoLOG 10 unit SQ AC-TID 02/07/19 02/07/19 (formulary)] Previous Rx's Medication Instructions Recorded Insulin Glargine [Lantus] 28 unit SQ HS #1 vial 01/28/19 Melatonin 5 mg PO HS PRN #28 tablet 01/28/19 Sertraline [Zoloft] 200 mg PO DAILY #28 tab 01/28/19 diphenhydrAMINE [Benadryl] 25 mg PO HS #28 cap 01/28/19 traZODone HCL [Desyrel] 300 mg PO HS #40 tab 01/28/19 Allergies Allergy/AdvReac Type Severity Reaction Status Date / Time No Known Allergies Allergy Verified 02/07/19 12:17 Review of Systems ROS Statement: Those systems with pertinent positive or pertinent negative responses have been documented in the HPI. ROS Other: All systems not noted in ROS Statement are negative. Past Medical History Past Medical History: Asthma, Diabetes Mellitus, Skin Disorder Additional Past Medical History / Comment(s): , insulin dependent diabetes oral apraxia; previous suicidal attempts anxiety/depression, previous hospital physicians for DKA,gastroparesis. History of Any Multi-Drug Resistant Organisms: None Reported Past Surgical History: Adenoidectomy Additional Past Surgical History / Comment(s): 2002 Past Anesthesia/Blood Transfusion Reactions: No Reported Reaction Past Psychological History: Anxiety, Depression Smoking Status: Never smoker Past Alcohol Use History: None Reported Past Drug Use History: Marijuana - Past Family History Mother Family Medical History: CVA/TIA Father Family Medical History: Hyperlipidemia, Hypertension Additional Family Medical History / Comment(s): . General Exam - General Exam Comments Initial Comments: General: The patient is awake and alert, in no distress, and does not appear acutely ill. Eye: +3 mm pupils are equal, round and reactive to light, extra-ocular movements are intact. No nystagmus. There is normal conjunctiva bilaterally. No signs of icterus. Ears, nose, mouth and throat: There are moist mucous membranes and no oral lesions. Neck: The neck is supple, there is no tenderness or JVD. Cardiovascular: There is a regular rate and rhythm. No murmur, rub or gallop is appreciated. Respiratory: Lungs are clear to auscultation, respirations are non-labored, breath sounds are equal. No wheezes, stridor, rales, or rhonchi. Gastrointestinal: Soft, non-distended, non-tender abdomen without masses or organomegaly noted. There is no rebound or guarding present. Musculoskeletal: Normal ROM, no tenderness. Strength 5/5 of the UE and LE equal b/l. Sensation intact of the UE and LE equal b/l. Radial pulses equal bilaterally 2+. Neurological: A&O x 3. CN II-XII intact grossly, There are no obvious motor or sensory deficits. Coordination appears grossly intact. Speech is normal. Skin: Skin is warm and dry and no rashes or lesions are noted. No leg swelling. Psychiatric: Cooperative, appropriate mood & affect, normal judgment. Limitations: no limitations Course Vital Signs 02/07/19 02/07/19 02/07/19 12:01 12:24 13:38 Temperature 97.5 F L Pulse Rate 104 H 92 105 H Respiratory 18 16 16 Rate Blood Pressure 113/76 122/89 118/82 O2 Sat by Pulse 98 100 100 Oximetry EKG Findings - EKG Comments: EKG Findings:: Ventricular rate 100 bpm, RI interval 164 ms, episcopalian 94 ms, QT/QTc to 74/42 ms. This is normal sinus rhythm with noted left atrial enlargement. Right axis is noted. QT appears to be prolonged. EKG personally reviewed and was interpretted by my attending provider. Medical Decision Making - Medical Decision Making Appearing 23-year-old male known to the emergency department with type 1 diabetes presents today for chief complain of all her pain described as pins and needles sensation in feet/ LE b/l equal. Appears consistent with a diabetic peripheral neuropathy. Patient has full sensation and no focal neurological deficits. Abdominal exam benign patient appears well clear lung sounds. No history of trauma. No evidence of abrasions or lacerations or causes of pain. Patient has no elevated white blood cell count. Electrolytes are within acceptable limits. Normal anion gap. Acetone negative. Patient does have a significantly elevated blood glucose. This wasgiven both subQ and IV insulin as well as IV fluids. Patient's lactic acid was also elevated. Patient has had known to have chronically elevated blood glucose is elevated A1c. I did discuss at length the importance of low carbohydrate diet, monitoring sugar closely tight control diabetes, I recommend patient follow up with endocrinology in ophthalmology patient has no current eye complaints. Given the laboratory studies decrease in blood glucose patient continues to appear well vital signs stable. Patient is stable for discharge with outpatient primary care follow-up. Patient is agreeable to this care plan discharge at this time. Khurram was discussed with attending provider Dr. Lynn who is agreeable to plan discharge after reviewing laboratory studies discussing case, and reviewing EKG. - Lab Data Result diagrams: 02/07/19 12:12 02/07/19 12:12 Lab Results 02/07/19 02/07/19 02/07/19 Range/Units 12:04 12:12 12:12 WBC 8.1 (3.8-10.6) k/uL RBC 4.89 (4.30-5.90) m/uL Hgb 14.9 (13.0-17.5) gm/dL Hct 44.3 (39.0-53.0) % MCV 90.7 (80.0-100.0) fL MCH 30.5 (25.0-35.0) pg MCHC 33.7 (31.0-37.0) g/dL RDW 12.3 (11.5-15.5) % Plt Count 257 (150-450) k/uL Neutrophils % 68 % Lymphocytes % 21 % Monocytes % 5 % Eosinophils % 4 % Basophils % 1 % Neutrophils # 5.6 (1.3-7.7) k/uL Lymphocytes # 1.7 (1.0-4.8) k/uL Monocytes # 0.4 (0-1.0) k/uL Eosinophils # 0.3 (0-0.7) k/uL Basophils # 0.1 (0-0.2) k/uL VBG pH (7.31-7.41) VBG pCO2 (37-51) mmHg VBG HCO3 (24-28) mmol/L Sodium 131 L (137-145) mmol/L Potassium 4.4 (3.5-5.1) mmol/L Chloride 95 L (98-107) mmol/L Carbon Dioxide 24 (22-30) mmol/L Anion Gap 12 mmol/L BUN 11 (9-20) mg/dL Creatinine 0.38 L (0.66-1.25) mg/dL Est GFR (CKD-EPI)AfAm >90 (>60 ml/min/1.73 sqM) Est GFR (CKD-EPI)NonAf >90 (>60 ml/min/1.73 sqM) Glucose 666 H* (74-99) mg/dL POC Glucose (mg/dL) >600 H (75-99) mg/dL POC Glu Aerospace Mechanic ID Meghana Babcock Plasma Lactic Acid Len (0.7-2.0) mmol/L Calcium 8.6 (8.4-10.2) mg/dL Magnesium 1.8 (1.6-2.3) mg/dL Total Bilirubin 0.4 (0.2-1.3) mg/dL AST 18 (17-59) U/L ALT 29 (21-72) U/L Alkaline Phosphatase 86 (38-126) U/L Total Protein 6.4 (6.3-8.2) g/dL Albumin 4.1 (3.5-5.0) g/dL Lipase 213 (23-300) U/L Urine Color Urine Appearance (Clear) Urine pH (5.0-8.0) Ur Specific [place] (1.001-1.035) Urine Protein (Negative) Urine Glucose (UA) (Negative) Urine Ketones (Negative) Urine Blood (Negative) Urine Nitrite (Negative) Urine Bilirubin (Negative) Urine Urobilinogen (<2.0) mg/dL Ur Leukocyte Esterase (Negative) Acetone, Qual Negative (Negative) 02/07/19 02/07/19 02/07/19 Range/Units 12:12 12:12 12:40 WBC (3.8-10.6) k/uL RBC (4.30-5.90) m/uL Hgb (13.0-17.5) gm/dL Hct (39.0-53.0) % MCV (80.0-100.0) fL MCH (25.0-35.0) pg MCHC (31.0-37.0) g/dL RDW (11.5-15.5) % Plt Count (150-450) k/uL Neutrophils % % Lymphocytes % % Monocytes % % Eosinophils % % Basophils % % Neutrophils # (1.3-7.7) k/uL Lymphocytes # (1.0-4.8) k/uL Monocytes # (0-1.0) k/uL Eosinophils # (0-0.7) k/uL Basophils # (0-0.2) k/uL VBG pH 7.40 (7.31-7.41) VBG pCO2 37 (37-51) mmHg VBG HCO3 22 L (24-28) mmol/L Sodium (137-145) mmol/L Potassium (3.5-5.1) mmol/L Chloride (98-107) mmol/L Carbon Dioxide (22-30) mmol/L Anion Gap mmol/L BUN (9-20) mg/dL Creatinine (0.66-1.25) mg/dL Est GFR (CKD-EPI)AfAm (>60 ml/min/1.73 sqM) Est GFR (CKD-EPI)NonAf (>60 ml/min/1.73 sqM) Glucose (74-99) mg/dL POC Glucose (mg/dL) (75-99) mg/dL POC Glu Aerospace Mechanic ID Plasma Lactic Acid Len 3.0 H* (0.7-2.0) mmol/L Calcium (8.4-10.2) mg/dL Magnesium (1.6-2.3) mg/dL Total Bilirubin (0.2-1.3) mg/dL AST (17-59) U/L ALT (21-72) U/L Alkaline Phosphatase (38-126) U/L Total Protein (6.3-8.2) g/dL Albumin (3.5-5.0) g/dL Lipase (23-300) U/L Urine Color Colorless Urine Appearance Clear (Clear) Urine pH 5.0 (5.0-8.0) Ur Specific [place] 1.034 (1.001-1.035) Urine Protein Negative (Negative) Urine Glucose (UA) 4+ H (Negative) Urine Ketones Negative (Negative) Urine Blood Negative (Negative) Urine Nitrite Negative (Negative) Urine Bilirubin Negative (Negative) Urine Urobilinogen <2.0 (<2.0) mg/dL Ur Leukocyte Esterase Negative (Negative) Acetone, Qual (Negative) 02/07/19 Range/Units 13:59 WBC (3.8-10.6) k/uL RBC (4.30-5.90) m/uL Hgb (13.0-17.5) gm/dL Hct (39.0-53.0) % MCV (80.0-100.0) fL MCH (25.0-35.0) pg MCHC (31.0-37.0) g/dL RDW (11.5-15.5) % Plt Count (150-450) k/uL Neutrophils % % Lymphocytes % % Monocytes % % Eosinophils % % Basophils % % Neutrophils # (1.3-7.7) k/uL Lymphocytes # (1.0-4.8) k/uL Monocytes # (0-1.0) k/uL Eosinophils # (0-0.7) k/uL Basophils # (0-0.2) k/uL VBG pH (7.31-7.41) VBG pCO2 (37-51) mmHg VBG HCO3 (24-28) mmol/L Sodium (137-145) mmol/L Potassium (3.5-5.1) mmol/L Chloride (98-107) mmol/L Carbon Dioxide (22-30) mmol/L Anion Gap mmol/L BUN (9-20) mg/dL Creatinine (0.66-1.25) mg/dL Est GFR (CKD-EPI)AfAm (>60 ml/min/1.73 sqM) Est GFR (CKD-EPI)NonAf (>60 ml/min/1.73 sqM) Glucose (74-99) mg/dL POC Glucose (mg/dL) 410 H (75-99) mg/dL POC Glu Aerospace Mechanic ID Meli Lance Plasma Lactic Acid Len (0.7-2.0) mmol/L Calcium (8.4-10.2) mg/dL Magnesium (1.6-2.3) mg/dL Total Bilirubin (0.2-1.3) mg/dL AST (17-59) U/L ALT (21-72) U/L Alkaline Phosphatase (38-126) U/L Total Protein (6.3-8.2) g/dL Albumin (3.5-5.0) g/dL Lipase (23-300) U/L Urine Color Urine Appearance (Clear) Urine pH (5.0-8.0) Ur Specific [place] (1.001-1.035) Urine Protein (Negative) Urine Glucose (UA) (Negative) Urine Ketones (Negative) Urine Blood (Negative) Urine Nitrite (Negative) Urine Bilirubin (Negative) Urine Urobilinogen (<2.0) mg/dL Ur Leukocyte Esterase (Negative) Acetone, Qual (Negative) Disposition Clinical Impression: Neuropathy, Blood glucose elevated, Elevated lactic acid level Disposition: HOME SELF-CARE Condition: Good Instructions (If sedation given, give patient instructions): Diabetic Peripheral Neuropathy (ED) Additional Instructions: Please use medication as discussed. Please follow-up with family doctor in the next 2 days, recommend ice examination, recommended evaluation by ball worker. Please return to emergency room if the symptoms increase or worsen or for any other concerns. Is patient prescribed a controlled substance at d/c from ED?: No Referrals: Brown Valenzuela MD [Primary Care Provider] - 1-2 days Time of Disposition: 14:02
[2019-02-07 12:24] LABS: Basophils # (A) 0.1 k/uL (0-0.2); Basophils % (A) 1 %; Eosinophils # (A) 0.3 k/uL (0-0.7); Eosinophils % (A) 4 %; HCT 44.3 % (39.0-53.0); HGB 14.9 gm/dL (13.0-17.5); Lymphocytes # (A) 1.7 k/uL (1.0-4.8); Lymphocytes % (A) 21 %; MCH 30.5 pg (25.0-35.0); MCHC 33.7 g/dL (31.0-37.0); MCV 90.7 fL (80.0-100.0); Mean Platelet Volume 6.8; Monocytes # (A) 0.4 k/uL (0-1.0); Monocytes % (A) 5 %; Neutrophils # (A) 5.6 k/uL (1.3-7.7); Neutrophils % (A) 68 %; Platelet Count 257 k/uL (150-450); RBC 4.89 m/uL (4.30-5.90); RDW 12.3 % (11.5-15.5); WBC 8.1 k/uL (3.8-10.6)
[2019-02-07 12:35] LABS: ALT 29 U/L (21-72); AST 18 U/L (17-59); African American GFR (CKD) >90 (>60 ml/min/1.73 sqM); Albumin 4.1 g/dL (3.5-5.0); Alkaline Phosphatase 86 U/L (38-126); Anion Gap 12 mmol/L; Blood Urea Nitrogen 11 mg/dL (9-20); Calcium 8.6 mg/dL (8.4-10.2); Carbon Dioxide 24 mmol/L (22-30); Chloride 95 mmol/L (98-107); Magnesium 1.8 mg/dL (1.6-2.3); Potassium 4.4 mmol/L (3.5-5.1); Sodium 131 mmol/L (137-145); Total Bilirubin 0.4 mg/dL (0.2-1.3); Total Protein 6.4 g/dL (6.3-8.2)
[2019-02-07 12:50] LABS: Glucose 666 mg/dL (74-99)
[2019-02-07] MEDS ORDERED: INSULIN REGULAR 100 UNIT/ML VIAL SQ ONE ×3 (12:56→14:03)
[2019-02-07] MEDS ORDERED: INSULIN REGULAR 100 UNIT/ML VIAL IV ONE (12:56)
[2019-02-07 13:18] LABS: VBG PH 7.4 (7.31-7.41)
[2019-02-07 13:18] LABS: Appearance,Urine Clear (Clear); Bilirubin,Urine Negative (Negative); Blood,Urine Negative (Negative); Color,Urine Colorless; Glucose,Urine (UA) 4+ (Negative); Ketones,Urine Negative (Negative); Leukocyte Esterase,Urine Negative (Negative); Nitrite,Urine Negative (Negative); Protein,Urine Negative (Negative); Specific Gravity,Urine 1.034 (1.001-1.035); Urobilinogen,Urine <2.0 mg/dL (<2.0)
[2019-02-07] MEDS ORDERED: SODIUM CHLORIDE 0.9% 1,000 ML IV ONE (13:29)
[2019-02-07 14:00] LABS: Glucose,Whole Blood 410 mg/dL (75-99)
[2019-02-07 14:46] LABS: Glucose,Whole Blood 343 mg/dL (75-99)
[2019-02-07 15:13] VITALS: BP 106/86; PULSE 91; RESP 18
== END 2019-02-07 15:23 | disposition home or self-care (01) ==
LOC: EC 11:51
DX: E10.40 Type 1 diabetes mellitus with diabetic neuropathy, unspecified (principal); R74.0 Nonspecific elevation of levels of transaminase and lactic acid dehydrogenase [LDH]; E10.43 Type 1 diabetes mellitus with diabetic autonomic (poly)neuropathy; K31.84 Gastroparesis; E10.10 Type 1 diabetes mellitus with ketoacidosis without coma; Z79.4 Long term (current) use of insulin
CPT/HCPCS: 36415; 80053; 81003; 82009; 82803; 83605; 83690; 83735; 85025; 93005; 96360; 96361; 99285

== ENCOUNTER 2019-02-09 22:42 | Emergency (ER) | payer OTHER ==
[2019-02-09 22:51] VITALS: RESP 18
[2019-02-09 23:04] LABS: Glucose,Whole Blood 281 mg/dL (75-99)
[2019-02-09] MEDS ORDERED: SODIUM CHLORIDE 0.9% 2,000 ML IV ONE (23:09)
[2019-02-09] MEDS ORDERED: INSULIN REGULAR 100 UNIT/ML VIAL IV STA (23:09)
--- NOTE | 2019-02-09 23:12 | ED ---
Psych HPI - General Chief Complaint: Psychiatric Symptoms Stated Complaint: anxiety,poss overdose Time Seen by Provider: 02/09/19 22:59 Source: patient Mode of arrival: wheelchair - History of Present Illness Initial Comments: 's patient is 23-year-old man with history of diabetes and previous mood disorder. He states that over the past week he has been feeling more stressed, his mood has been increasingly depressed and now he is having thoughts of suicide by taking an overdose of Xanax. Patient states that he did take 3 Xanax over the course of this evening to try to sleep but thinks any worsening and he was feeling suicidal. MD Complaint: suicidal ideation, feels depressed Onset/Timin -: week(s) Associated Psychiatric Symptoms: depression, suicidal ideation History of same: Yes Quality: getting worse Improves With: none Worsens With: drug use Context: significant life stressor - Related Data Home Medications Medication Instructions Recorded Confirmed INSULIN ASPART (NovoLOG) [NovoLOG 10 unit SQ AC-TID 02/07/19 02/09/19 (formulary)] Previous Rx's Medication Instructions Recorded Insulin Glargine [Lantus] 28 unit SQ HS #1 vial 01/28/19 Melatonin 5 mg PO HS PRN #28 tablet 01/28/19 Sertraline [Zoloft] 200 mg PO DAILY #28 tab 01/28/19 diphenhydrAMINE [Benadryl] 25 mg PO HS #28 cap 01/28/19 traZODone HCL [Desyrel] 300 mg PO HS #40 tab 01/28/19 Allergies Allergy/AdvReac Type Severity Reaction Status Date / Time No Known Allergies Allergy Verified 02/09/19 23:03 Review of Systems ROS Statement: Those systems with pertinent positive or pertinent negative responses have been documented in the HPI. ROS Other: All systems not noted in ROS Statement are negative. Constitutional: Denies: fever Respiratory: Denies: cough, dyspnea Cardiovascular: Denies: chest pain, palpitations Gastrointestinal: Denies: abdominal pain, vomiting, diarrhea Genitourinary: Denies: dysuria, hematuria Musculoskeletal: Denies: back pain Skin: Denies: rash Neurological: Denies: headache Psychiatric: Reports: depression, suicidal thoughts. Denies: auditory hallucinations, visual hallucinations, homicidal thoughts Past Medical History Past Medical History: Asthma, Diabetes Mellitus, Skin Disorder Additional Past Medical History / Comment(s): , insulin dependent diabetes oral apraxia; previous suicidal attempts anxiety/depression, previous hospital physicians for DKA,gastroparesis. History of Any Multi-Drug Resistant Organisms: None Reported Past Surgical History: Adenoidectomy Additional Past Surgical History / Comment(s): 2002 Past Anesthesia/Blood Transfusion Reactions: No Reported Reaction Past Psychological History: Anxiety, Depression Smoking Status: Never smoker Past Alcohol Use History: None Reported Past Drug Use History: Marijuana - Past Family History Mother Family Medical History: CVA/TIA Father Family Medical History: Hyperlipidemia, Hypertension Additional Family Medical History / Comment(s): . General Exam Limitations: no limitations General appearance: alert, in no apparent distress Head exam: Present: atraumatic, normocephalic Eye exam: Present: normal appearance. Absent: scleral icterus, conjunctival injection Neck exam: Present: normal inspection Respiratory exam: Present: normal lung sounds bilaterally. Absent: respiratory distress, wheezes, rales, rhonchi, stridor Cardiovascular Exam: Present: normal rhythm, tachycardia (Rate 104 at my exam), normal heart sounds. Absent: systolic murmur, diastolic murmur, rubs, gallop GI/Abdominal exam: Present: soft. Absent: distended, tenderness, guarding, rebound, rigid, mass Extremities exam: Present: normal inspection, normal capillary refill. Absent: pedal edema, calf tenderness Back exam: Present: normal inspection. Absent: CVA tenderness (R), CVA tenderness (L) Neurological exam: Present: alert Psychiatric exam: Present: depressed, suicidal ideation. Absent: agitated, anxious, flat affect, manic, homicidal ideation Skin exam: Present: warm, dry, intact, normal color. Absent: rash Course Vital Signs 02/09/19 02/10/19 22:48 10:18 Temperature 98.1 F 98.2 F Pulse Rate 105 H 92 Respiratory 18 18 Rate Blood Pressure 116/83 121/96 O2 Sat by Pulse 99 99 Oximetry Medical Decision Making - Medical Decision Making Patient is seen by behavioral health and they are able to come up with a safety plan for him. He is danyell for safety and will follow-up. Patient will return should he again be feeling suicidal. - Lab Data Result diagrams: 02/10/19 00:00 02/10/19 00:00 Lab Results 02/09/19 02/10/19 02/10/19 Range/Units 23:03 00:00 00:00 WBC (3.8-10.6) k/uL RBC (4.30-5.90) m/uL Hgb (13.0-17.5) gm/dL Hct (39.0-53.0) % MCV (80.0-100.0) fL MCH (25.0-35.0) pg MCHC (31.0-37.0) g/dL RDW (11.5-15.5) % Plt Count (150-450) k/uL Neutrophils % % Lymphocytes % % Monocytes % % Eosinophils % % Basophils % % Neutrophils # (1.3-7.7) k/uL Lymphocytes # (1.0-4.8) k/uL Monocytes # (0-1.0) k/uL Eosinophils # (0-0.7) k/uL Basophils # (0-0.2) k/uL Sodium 136 L (137-145) mmol/L Potassium 4.0 (3.5-5.1) mmol/L Chloride 96 L (98-107) mmol/L Carbon Dioxide 25 (22-30) mmol/L Anion Gap 15 mmol/L BUN 14 (9-20) mg/dL Creatinine 0.41 L (0.66-1.25) mg/dL Est GFR (CKD-EPI)AfAm >90 (>60 ml/min/1.73 sqM) Est GFR (CKD-EPI)NonAf >90 (>60 ml/min/1.73 sqM) Glucose 289 H (74-99) mg/dL POC Glucose (mg/dL) 281 H (75-99) mg/dL POC Glu Pipe Organ Builder ID Amita Torres Estimated Ave Glu mg/dL Hemoglobin A1c (4.0-6.0) % Calcium 8.9 (8.4-10.2) mg/dL Urine Color Urine Appearance (Clear) Urine pH (5.0-8.0) Ur Specific [place] (1.001-1.035) Urine Protein (Negative) Urine Glucose (UA) (Negative) Urine Ketones (Negative) Urine Blood (Negative) Urine Nitrite (Negative) Urine Bilirubin (Negative) Urine Urobilinogen (<2.0) mg/dL Ur Leukocyte Esterase (Negative) Urine Opiates Screen (NotDetected) Ur Oxycodone Screen (NotDetected) Urine Methadone Screen (NotDetected) Ur Propoxyphene Screen (NotDetected) Ur Barbiturates Screen (NotDetected) U Tricyclic Antidepress (NotDetected) Ur Phencyclidine Scrn (NotDetected) Ur Amphetamines Screen (NotDetected) U Methamphetamines Scrn (NotDetected) U Benzodiazepines Scrn (NotDetected) Urine Cocaine Screen (NotDetected) U Marijuana (THC) Screen (NotDetected) Acetone, Qual Positive (Negative) 02/10/19 02/10/19 02/10/19 Range/Units 00:00 00:53 04:32 WBC 9.6 (3.8-10.6) k/uL RBC 4.77 (4.30-5.90) m/uL Hgb 15.0 (13.0-17.5) gm/dL Hct 42.1 (39.0-53.0) % MCV 88.3 (80.0-100.0) fL MCH 31.5 (25.0-35.0) pg MCHC 35.7 (31.0-37.0) g/dL RDW 12.4 (11.5-15.5) % Plt Count 293 (150-450) k/uL Neutrophils % 52 % Lymphocytes % 36 % Monocytes % 7 % Eosinophils % 2 % Basophils % 1 % Neutrophils # 5.0 (1.3-7.7) k/uL Lymphocytes # 3.4 (1.0-4.8) k/uL Monocytes # 0.7 (0-1.0) k/uL Eosinophils # 0.2 (0-0.7) k/uL Basophils # 0.1 (0-0.2) k/uL Sodium (137-145) mmol/L Potassium (3.5-5.1) mmol/L Chloride (98-107) mmol/L Carbon Dioxide (22-30) mmol/L Anion Gap mmol/L BUN (9-20) mg/dL Creatinine (0.66-1.25) mg/dL Est GFR (CKD-EPI)AfAm (>60 ml/min/1.73 sqM) Est GFR (CKD-EPI)NonAf (>60 ml/min/1.73 sqM) Glucose (74-99) mg/dL POC Glucose (mg/dL) 206 H (75-99) mg/dL POC Glu Pipe Organ Builder ID Tara Vann Estimated Ave Glu mg/dL 341 Hemoglobin A1c 13.5 H (4.0-6.0) % Calcium (8.4-10.2) mg/dL Urine Color Urine Appearance (Clear) Urine pH (5.0-8.0) Ur Specific [place] (1.001-1.035) Urine Protein (Negative) Urine Glucose (UA) (Negative) Urine Ketones (Negative) Urine Blood (Negative) Urine Nitrite (Negative) Urine Bilirubin (Negative) Urine Urobilinogen (<2.0) mg/dL Ur Leukocyte Esterase (Negative) Urine Opiates Screen (NotDetected) Ur Oxycodone Screen (NotDetected) Urine Methadone Screen (NotDetected) Ur Propoxyphene Screen (NotDetected) Ur Barbiturates Screen (NotDetected) U Tricyclic Antidepress (NotDetected) Ur Phencyclidine Scrn (NotDetected) Ur Amphetamines Screen (NotDetected) U Methamphetamines Scrn (NotDetected) U Benzodiazepines Scrn (NotDetected) Urine Cocaine Screen (NotDetected) U Marijuana (THC) Screen (NotDetected) Acetone, Qual (Negative) 02/10/19 02/10/19 02/10/19 Range/Units 05:03 05:40 06:47 WBC (3.8-10.6) k/uL RBC (4.30-5.90) m/uL Hgb (13.0-17.5) gm/dL Hct (39.0-53.0) % MCV (80.0-100.0) fL MCH (25.0-35.0) pg MCHC (31.0-37.0) g/dL RDW (11.5-15.5) % Plt Count (150-450) k/uL Neutrophils % % Lymphocytes % % Monocytes % % Eosinophils % % Basophils % % Neutrophils # (1.3-7.7) k/uL Lymphocytes # (1.0-4.8) k/uL Monocytes # (0-1.0) k/uL Eosinophils # (0-0.7) k/uL Basophils # (0-0.2) k/uL Sodium (137-145) mmol/L Potassium (3.5-5.1) mmol/L Chloride (98-107) mmol/L Carbon Dioxide (22-30) mmol/L Anion Gap mmol/L BUN (9-20) mg/dL Creatinine (0.66-1.25) mg/dL Est GFR (CKD-EPI)AfAm (>60 ml/min/1.73 sqM) Est GFR (CKD-EPI)NonAf (>60 ml/min/1.73 sqM) Glucose (74-99) mg/dL POC Glucose (mg/dL) 231 H (75-99) mg/dL POC Glu Pipe Organ Builder Rosy David Estimated Ave Glu mg/dL Hemoglobin A1c (4.0-6.0) % Calcium (8.4-10.2) mg/dL Urine Color Light Yellow Urine Appearance Clear (Clear) Urine pH 5.5 (5.0-8.0) Ur Specific [place] 1.032 (1.001-1.035) Urine Protein Negative (Negative) Urine Glucose (UA) 4+ H (Negative) Urine Ketones 4+ H (Negative) Urine Blood Negative (Negative) Urine Nitrite Negative (Negative) Urine Bilirubin Negative (Negative) Urine Urobilinogen <2.0 (<2.0) mg/dL Ur Leukocyte Esterase Negative (Negative) Urine Opiates Screen Not Detected (NotDetected) Ur Oxycodone Screen Not Detected (NotDetected) Urine Methadone Screen Not Detected (NotDetected) Ur Propoxyphene Screen Not Detected (NotDetected) Ur Barbiturates Screen Not Detected (NotDetected) U Tricyclic Antidepress Not Detected (NotDetected) Ur Phencyclidine Scrn Not Detected (NotDetected) Ur Amphetamines Screen Not Detected (NotDetected) U Methamphetamines Scrn Not Detected (NotDetected) U Benzodiazepines Scrn Not Detected (NotDetected) Urine Cocaine Screen Not Detected (NotDetected) U Marijuana (THC) Screen Detected H (NotDetected) Acetone, Qual Positive (Negative) - EKG Data -: EKG Interpreted by [place] EKG shows normal: sinus rhythm, axis (Right axis deviation), intervals (Normal), QRS complexes (Normal), ST-T waves (Normal) Rate: normal (97 bpm) Disposition Clinical Impression: Drug overdose, Mood disorder Disposition: HOME SELF-CARE Condition: Good Is patient prescribed a controlled substance at d/c from ED?: No Referrals: Brown Valenzuela MD [Primary Care Provider] - 1-2 days
[2019-02-10 00:54] LABS: Glucose,Whole Blood 206 mg/dL (75-99)
[2019-02-10 00:57] LABS: Basophils # (A) 0.1 k/uL (0-0.2); Basophils % (A) 1 %; Eosinophils # (A) 0.2 k/uL (0-0.7); Eosinophils % (A) 2 %; HCT 42.1 % (39.0-53.0); Lymphocytes # (A) 3.4 k/uL (1.0-4.8); Lymphocytes % (A) 36 %; MCH 31.5 pg (25.0-35.0); MCHC 35.7 g/dL (31.0-37.0); MCV 88.3 fL (80.0-100.0); Mean Platelet Volume 6.7; Monocytes # (A) 0.7 k/uL (0-1.0); Monocytes % (A) 7 %; Neutrophils % (A) 52 %; Platelet Count 293 k/uL (150-450); RBC 4.77 m/uL (4.30-5.90); RDW 12.4 % (11.5-15.5); WBC 9.6 k/uL (3.8-10.6)
[2019-02-10 01:02] LABS: African American GFR (CKD) >90 (>60 ml/min/1.73 sqM); Anion Gap 15 mmol/L; Blood Urea Nitrogen 14 mg/dL (9-20); Calcium 8.9 mg/dL (8.4-10.2); Carbon Dioxide 25 mmol/L (22-30); Chloride 96 mmol/L (98-107); Glucose 289 mg/dL (74-99); Sodium 136 mmol/L (137-145)
[2019-02-10 05:24] LABS: Appearance,Urine Clear (Clear); Bilirubin,Urine Negative (Negative); Blood,Urine Negative (Negative); Color,Urine Light Yellow; Glucose,Urine (UA) 4+ (Negative); Leukocyte Esterase,Urine Negative (Negative); Nitrite,Urine Negative (Negative); PH, Urine 5.5 (5.0-8.0); Protein,Urine Negative (Negative); Specific Gravity,Urine 1.032 (1.001-1.035); Urobilinogen,Urine <2.0 mg/dL (<2.0)
[2019-02-10 05:36] LABS: Ketones,Urine 4+ (Negative)
[2019-02-10 05:40] LABS: Amphetamine Screen,Urine Not Detected (NotDetected); Barbiturate Screen,Urine Not Detected (NotDetected); Benzodiazepines Screen,Urine Not Detected (NotDetected); Cocaine Screen,Urine Not Detected (NotDetected); Methadone Screen, Urine Not Detected (NotDetected); Opiate Screen,Urine Not Detected (NotDetected); Oxycodone Screen, Urine Not Detected (NotDetected); Phencyclidine Screen,Urine Not Detected (NotDetected); Tricyclic Antidepressant,Urine Not Detected (NotDetected); Urn Cannabinoid Scrn Detected (NotDetected)
[2019-02-10 05:42] LABS: Glucose,Whole Blood 231 mg/dL (75-99)
[2019-02-10] MEDS ORDERED: INSULIN REGULAR 100 UNIT/ML VIAL IV STA (05:42)
[2019-02-10] MEDS ORDERED: SODIUM CHLORIDE 0.9% 1,000 ML IV STA (05:42)
[2019-02-10 10:20] VITALS: BP 121/96; PULSE 92; TEMP 98.2
[2019-02-10 15:31] LABS: Hemoglobin A1C 13.5 % (4.0-6.0)
== END 2019-02-10 10:18 | disposition home or self-care (01) ==
LOC: EC 22:42
DX: T42.4X2A Poisoning by benzodiazepines, intentional self-harm, initial encounter (principal); F32.9 Major depressive disorder, single episode, unspecified; R45.851 Suicidal ideations; R00.0 Tachycardia, unspecified; E11.43 Type 2 diabetes mellitus with diabetic autonomic (poly)neuropathy; K31.84 Gastroparesis; E11.10 Type 2 diabetes mellitus with ketoacidosis without coma; Z79.4 Long term (current) use of insulin
CPT/HCPCS: 36415; 80048; 80306; 81003; 82009; 82075; 83036; 85025; 96360; 96361; 99285

== ENCOUNTER 2019-04-11 11:17 | Emergency (ER) | payer OTHER ==
[2019-04-11 11:27] VITALS: BP 122/80; PULSE 125; RESP 18; TEMP 97.2
[2019-04-11] MEDS ORDERED: methylPREDNISolone SOD SUCCI 125 MG/2 ML VIAL IM ONE (12:02)
--- NOTE | 2019-04-11 12:08 | ED ---
Skin/Abscess/FB HPI - General Chief complaint: Skin/Abscess/Foreign Body Stated complaint: rash Time Seen by Provider: 04/11/19 11:42 Source: patient Mode of arrival: ambulatory Limitations: no limitations - History of Present Illness Initial comments: Patient is a 23-year-old male presenting to emergency Department with complaints of a generalized rash that has been intermittent over the past 3-4 weeks. Patient states he had the rash approximately 3 weeks ago and did go to his doctor, Dr. Valenzuela who prescribed some medication, he is unaware of the name, which did improve in symptoms. Patient states he then used a new laundry detergent 2 days ago and his rash came back. Patient states it is itchy and it is on his torso, his upper extremities, and into his groin and upper legs. Patient has not tried any new medications for this. Patient denies any fever, chills, nausea, vomiting. Patient has no other complaints at this time. Upon arrival to ER, vital signs are stable. - Related Data Home Medications Medication Instructions Recorded Confirmed INSULIN ASPART (NovoLOG) [NovoLOG 10 unit SQ AC-TID 02/07/19 02/09/19 (formulary)] Previous Rx's Medication Instructions Recorded Insulin Glargine [Lantus] 28 unit SQ HS #1 vial 01/28/19 Melatonin 5 mg PO HS PRN #28 tablet 01/28/19 Sertraline [Zoloft] 200 mg PO DAILY #28 tab 01/28/19 diphenhydrAMINE [Benadryl] 25 mg PO HS #28 cap 01/28/19 traZODone HCL [Desyrel] 300 mg PO HS #40 tab 01/28/19 methylPREDNISolone [Medrol Dose 4 mg PO DIRECTED #1 pack 04/11/19 Pack] Allergies Allergy/AdvReac Type Severity Reaction Status Date / Time No Known Allergies Allergy Verified 04/11/19 11:27 Review of Systems ROS Statement: Those systems with pertinent positive or pertinent negative responses have been documented in the HPI. ROS Other: All systems not noted in ROS Statement are negative. Past Medical History Past Medical History: Asthma, Diabetes Mellitus, Skin Disorder Additional Past Medical History / Comment(s): , insulin dependent diabetes oral apraxia; previous suicidal attempts anxiety/depression, previous hospital ph ysicians for DKA,gastroparesis. History of Any Multi-Drug Resistant Organisms: None Reported Past Surgical History: Adenoidectomy Additional Past Surgical History / Comment(s): 2002 Past Anesthesia/Blood Transfusion Reactions: No Reported Reaction Past Psychological History: Anxiety, Depression Smoking Status: Never smoker Past Alcohol Use History: None Reported Past Drug Use History: Marijuana - Past Family History Mother Family Medical History: CVA/TIA Father Family Medical History: Hyperlipidemia, Hypertension Additional Family Medical History / Comment(s): . General Exam - General Exam Comments Initial Comments: GENERAL: Well-appearing, well-nourished and in no acute distress. HEAD: Atraumatic, normocephalic. EYES: Pupils equal round and reactive to light, extraocular movements intact, sclera anicteric, conjunctiva are normal. ENT: TMs normal, nares patent, oropharynx clear without exudates. Moist mucous membranes. NECK: Normal range of motion, supple without lymphadenopathy or JVD. LUNGS: Breath sounds clear to auscultation bilaterally and equal. No wheezes rales or rhonchi. HEART: Regular rate and rhythm without murmurs, rubs or gallops. ABDOMEN: Soft, nontender, normoactive bowel sounds. No guarding, no rebound. No masses appreciated. EXTREMITIES: Normal range of motion, no pitting or edema. No clubbing or cyanosis. PSYCH: Normal mood, normal affect. SKIN: Warm, Dry, normal turgor. Patient has a generalized macular, papular rash on his torso, upper extremities and into his groin and lower extremities. It is slightly erythematous and pruritic. Consistent with an ALLERGIC dermatitis. Limitations: no limitations Course Vital Signs 04/11/19 11:23 Temperature 97.2 F L Pulse Rate 125 H Respiratory 18 Rate Blood Pressure 122/80 O2 Sat by Pulse 97 Oximetry Medical Decision Making - Medical Decision Making Patient is a 23-year-old male presenting with a generalized macular, papular rash on his torso and upper extremities 2 days. Patient did use a new laundry detergent and believes that from that. Patient's rash is consistent with an ALLERGIC dermatitis. Patient will be given 125 mg of Solu-Medrol and will continue with a Medrol Dosepak to start tomorrow. Patient will also take Benadryl at night for the itching. Patient is stable for discharge at this time. If symptoms do not improve within the 1 week patient will follow up with his PCP. Patient is agreeable with this plan of care. Return parameters were discussed with the patient and he verbalized understanding. Discussed with Dr. Lynn. Disposition Clinical Impression: Allergic dermatitis Disposition: HOME SELF-CARE Condition: Stable Instructions (If sedation given, give patient instructions): Acute Rash (ED) Additional Instructions: Please return to the Emergency Department if symptoms worsen or any other concerns. Take steroids as prescribed. Take Benadryl once or twice a day as discussed. Follow-up with PCP as symptoms persist after one week. Prescriptions: methylPREDNISolone [Medrol Dose Pack] 4 mg PO DIRECTED #1 pack Is patient prescribed a controlled substance at d/c from ED?: No Referrals: Brown Valenzuela MD [Primary Care Provider] - 1-2 days
== END 2019-04-11 12:19 | disposition home or self-care (01) ==
LOC: EC 11:17
DX: L23.9 Allergic contact dermatitis, unspecified cause (principal); E11.9 Type 2 diabetes mellitus without complications; Z79.4 Long term (current) use of insulin
CPT/HCPCS: 96372; 99282; J2930

== ENCOUNTER 2019-04-16 11:03 | Emergency (ER) | payer OTHER ==
[2019-04-16 11:21] VITALS: TEMP 97.6
[2019-04-16] MEDS ORDERED: IBUPROFEN 600 MG STARTER PACK 4 TAB BTL PO STA (11:53)
[2019-04-16] MEDS ORDERED: CYCLOBENZAPRINE 10MG STARTER 3 TAB BTL PO STA (11:53)
--- NOTE | 2019-04-16 12:19 | ED ---
Back Pain HPI - General Chief Complaint: Back Pain/Injury Stated Complaint: Back injury-[facility] Time Seen by Provider: 04/16/19 11:32 Source: patient, RN notes reviewed, old records reviewed Limitations: no limitations - History of Present Illness Initial Comments: Patient is a 23-year-old male presents today for evaluation for lower back pain and popping sensation. Patient proceeded in his lower back while lifting a box at work. Patient states that since then has had some shooting pain to right riding down the right leg. He denies any fall or trauma. Patient states that he was sent here from work. He has not taken anything for pain at this time. - Related Data Home Medications Medication Instructions Recorded Confirmed INSULIN ASPART (NovoLOG) [NovoLOG 10 unit SQ AC-TID 02/07/19 02/09/19 (formulary)] Previous Rx's Medication Instructions Recorded Insulin Glargine [Lantus] 28 unit SQ HS #1 vial 01/28/19 Melatonin 5 mg PO HS PRN #28 tablet 01/28/19 Sertraline [Zoloft] 200 mg PO DAILY #28 tab 01/28/19 diphenhydrAMINE [Benadryl] 25 mg PO HS #28 cap 01/28/19 traZODone HCL [Desyrel] 300 mg PO HS #40 tab 01/28/19 methylPREDNISolone [Medrol Dose 4 mg PO DIRECTED #1 pack 04/11/19 Pack] Ibuprofen 600 mg PO TID #20 tablet 04/16/19 Allergies Allergy/AdvReac Type Severity Reaction Status Date / Time No Known Allergies Allergy Verified 04/16/19 11:21 Review of Systems ROS Statement: Those systems with pertinent positive or pertinent negative responses have been documented in the HPI. ROS Other: All systems not noted in ROS Statement are negative. Past Medical History Past Medical History: Asthma, Diabetes Mellitus, Skin Disorder Additional Past Medical History / Comment(s): , insulin dependent diabetes oral apraxia; previous suicidal attempts anxiety/depression, previous hospital physicians for DKA,gastroparesis. History of Any Multi-Drug Resistant Organisms: None Reported Past Surgical History: Adenoidectomy Additional Past Surgical History / Comment(s): 2002 Past Anesthesia/Blood Transfusion Reactions: No Reported Reaction Past Psychological History: Anxiety, Depression Smoking Status: Never smoker Past Alcohol Use History: None Reported Past Drug Use History: Marijuana - Past Family History Mother Family Medical History: CVA/TIA Father Family Medical History: Hyperlipidemia, Hypertension Additional Family Medical History / Comment(s): . General Exam Limitations: no limitations General appearance: alert, in no apparent distress Head exam: Present: atraumatic, normocephalic, normal inspection Eye exam: Present: normal appearance, PERRL, EOMI. Absent: scleral icterus, conjunctival injection, periorbital swelling ENT exam: Present: normal exam, mucous membranes moist Neck exam: Present: normal inspection. Absent: tenderness, meningismus, lymphadenopathy Respiratory exam: Present: normal lung sounds bilaterally. Absent: respiratory distress, wheezes, rales, rhonchi, stridor Cardiovascular Exam: Present: regular rate, normal rhythm, normal heart sounds. Absent: systolic murmur, diastolic murmur, rubs, gallop, clicks GI/Abdominal exam: Present: soft, normal bowel sounds. Absent: distended, tenderness, guarding, rebound, rigid Extremities exam: Present: normal inspection, full ROM, normal capillary refill. Absent: tenderness, pedal edema, joint swelling, calf tenderness Back exam: Present: normal inspection, tenderness (lumbar spinal tenderness) Neurological exam: Present: alert, oriented X3, CN II-XII intact Psychiatric exam: Present: normal affect, normal mood Skin exam: Present: warm, dry, intact, normal color. Absent: rash Course Vital Signs 04/16/19 11:19 Temperature 97.6 F Pulse Rate 95 Respiratory 20 Rate Blood Pressure 107/76 O2 Sat by Pulse 99 Oximetry Medical Decision Making - Medical Decision Making They were 23-year-old male presents today for reevaluation for lower back pain, popping sensation felt a heavy box. He has no saddle anesthesias or other at like symptoms. X-rays obtained shows no fractures dislocation lumbar spine. Is given by mouth Norflex and ibuprofen. Discussed the Patient instructed take an temperature medicine and follow-up with primary care doctor and [facility]. Patient had a urine drug screen completed for [facility]. Discussed Return parameters. Disposition Clinical Impression: Back pain due to injury, Sciatic nerve pain Disposition: HOME SELF-CARE Condition: Good Instructions (If sedation given, give patient instructions): Acute Low Back Pain (ED) Additional Instructions: Please use medication as discussed. Please follow up with family doctor if symptoms have not improved over the next two days. Please return to the emergency room if your symptoms increase or worsen or for any other concerns. Prescriptions: Ibuprofen 600 mg PO TID #20 tablet Is patient prescribed a controlled substance at d/c from ED?: No Referrals: Brown Valenzuela MD [Primary Care Provider] - 1-2 days Time of Disposition: 13:06
--- NOTE | 2019-04-16 12:31 | XR ---
EXAMINATION TYPE: XR lumbar spine 2 or 3V DATE OF EXAM: 04/16/2019 CLINICAL HISTORY: pain TECHNIQUE: Three views of the lumbar spine are submitted. COMPARISON: None. FINDINGS: There are 5 lumbar type vertebral bodies identified. The lumbar spine shows satisfactory alignment w ithout evidence of acute fracture or dislocation. Vertebral body heights are within normal limits. Disc spaces are within normal limits. The overlying soft tissue appears unremarkable. IMPRESSION: No acute fracture or dislocation is seen in the lumbar spine. ICD 10 NO FRACTURE, INITIAL EVALUATION
[2019-04-16 13:30] VITALS: BP 110/80; PULSE 88; RESP 18
== END 2019-04-16 13:19 | disposition home or self-care (01) ==
LOC: EC 11:03
DX: M54.40 Lumbago with sciatica, unspecified side (principal); E11.9 Type 2 diabetes mellitus without complications; Z79.4 Long term (current) use of insulin; Y99.0 Civilian activity done for income or pay
CPT/HCPCS: 72100; 99284

== ENCOUNTER 2019-05-11 15:29 | Observation (INO) | payer OTHER ==
[2019-05-11] MEDS ORDERED: ONDANSETRON 4 MG/2 ML VIAL IVP STA (15:46)
[2019-05-11] MEDS ORDERED: SODIUM CHLORIDE 0.9% 2,000 ML IV STA (15:46)
--- NOTE | 2019-05-11 16:16 | ED ---
Nausea/Vomiting/Diarrhea HPI - General Chief complaint: Nausea/Vomiting/Diarrhea Stated complaint: NVD Time Seen by Provider: 05/11/19 15:43 Source: patient, RN notes reviewed Mode of arrival: ambulatory Limitations: no limitations - History of Present Illness Initial comments: 23-year-old male presents emergency Department chief complaint of bodyaches, nausea vomiting. Patient states he has not checked his blood sugar today is known diabetic has had multiple admissions the past for DKA. He states he does not feel that he is in DKA bili states he has not checked his blood sugar any has been eating peanut butter Crackers. Patient's had no cough or cold-like symptoms. He does admit that he's had a rash since leaving rehab in which she was in rehab for marijuana and Xanax abuse. Patient states he is currently sober. - Related Data Home Medications Medication Instructions Recorded Confirmed INSULIN ASPART (NovoLOG) [NovoLOG 10 unit SQ AC-TID 02/07/19 02/09/19 (formulary)] Previous Rx's Medication Instructions Recorded Insulin Glargine [Lantus] 28 unit SQ HS #1 vial 01/28/19 Melatonin 5 mg PO HS PRN #28 tablet 01/28/19 Sertraline [Zoloft] 200 mg PO DAILY #28 tab 01/28/19 diphenhydrAMINE [Benadryl] 25 mg PO HS #28 cap 01/28/19 traZODone HCL [Desyrel] 300 mg PO HS #40 tab 01/28/19 methylPREDNISolone [Medrol Dose 4 mg PO DIRECTED #1 pack 04/11/19 Pack] Ibuprofen 600 mg PO TID #20 tablet 04/16/19 Allergies Allergy/AdvReac Type Severity Reaction Status Date / Time No Known Allergies Allergy Verified 04/16/19 11:21 Review of Systems ROS Statement: Those systems with pertinent positive or pertinent negative responses have been documented in the HPI. ROS Other: All systems not noted in ROS Statement are negative. Past Medical History Past Medical History: Asthma, Diabetes Mellitus, Skin Disorder Additional Past Medical History / Comment(s): , insulin dependent diabetes oral apraxia; previous suicidal attempts anxiety/depression, previous hospital physicians for DKA,gastroparesis. History of Any Multi-Drug Resistant Organisms: None Reported Past Surgical History: Adenoidectomy Additional Past Surgical History / Comment(s): 2002 Past Anesthesia/Blood Transfusion Reactions: No Reported Reaction Past Psychological History: Anxiety, Depression Smoking Status: Never smoker Past Alcohol Use History: None Reported Past Drug Use History: Marijuana - Past Family History Mother Family Medical History: CVA/TIA Father Family Medical History: Hyperlipidemia, Hypertension Additional Family Medical History / Comment(s): . General Exam Limitations: no limitations General appearance: alert, in no apparent distress Head exam: Present: atraumatic, normocephalic, normal inspection Eye exam: Present: normal appearance, PERRL, EOMI. Absent: scleral icterus, conjunctival injection, periorbital swelling ENT exam: Present: normal exam, normal oropharynx, mucous membranes moist Neck exam: Present: normal inspection, full ROM. Absent: tenderness, meningismus, lymphadenopathy Respiratory exam: Present: normal lung sounds bilaterally. Absent: respiratory distress, wheezes, rales, rhonchi, stridor Cardiovascular Exam: Present: normal rhythm, tachycardia, normal heart sounds. Absent: systolic murmur, diastolic murmur, rubs, gallop, clicks GI/Abdominal exam: Present: soft, tenderness, normal bowel sounds. Absent: distended, guarding, rebound, rigid Neurological exam: Present: alert, oriented X3, CN II-XII intact Skin exam: Present: warm, dry, intact, normal color, rash Course Vital Signs 05/11/19 15:41 Temperature 97.8 F Pulse Rate 128 H Respiratory 16 Rate Blood Pressure 98/81 O2 Sat by Pulse 98 Oximetry Medical Decision Making - Medical Decision Making Patient will be admitted for DKA started on insulin protocol. - Lab Data Result diagrams: 05/11/19 15:54 05/11/19 15:54 Lab Results 05/11/19 05/11/19 05/11/19 Range/Units 15:54 15:54 15:54 WBC 11.9 H (3.8-10.6) k/uL RBC 5.39 (4.30-5.90) m/uL Hgb 17.2 (13.0-17.5) gm/dL Hct 47.6 (39.0-53.0) % MCV 88.4 (80.0-100.0) fL MCH 32.0 (25.0-35.0) pg MCHC 36.2 (31.0-37.0) g/dL RDW 11.9 (11.5-15.5) % Plt Count 361 (150-450) k/uL Neutrophils % 78 % Lymphocytes % 11 % Monocytes % 5 % Eosinophils % 2 % Basophils % 1 % Neutrophils # 9.3 H (1.3-7.7) k/uL Lymphocytes # 1.3 (1.0-4.8) k/uL Monocytes # 0.6 (0-1.0) k/uL Eosinophils # 0.3 (0-0.7) k/uL Basophils # 0.2 (0-0.2) k/uL VBG pH (7.31-7.41) VBG pCO2 (37-51) mmHg VBG HCO3 (24-28) mmol/L Sodium 132 L (137-145) mmol/L Potassium 4.4 (3.5-5.1) mmol/L Chloride 96 L (98-107) mmol/L Carbon Dioxide 21 L (22-30) mmol/L Anion Gap 15 mmol/L BUN 23 H (9-20) mg/dL Creatinine 0.53 L (0.66-1.25) mg/dL Est GFR (CKD-EPI)AfAm >90 (>60 ml/min/1.73 sqM) Est GFR (CKD-EPI)NonAf >90 (>60 ml/min/1.73 sqM) Glucose 288 H (74-99) mg/dL Plasma Lactic Acid Len 2.4 H* (0.7-2.0) mmol/L Calcium 8.8 (8.4-10.2) mg/dL Total Bilirubin 0.8 (0.2-1.3) mg/dL AST 18 (17-59) U/L ALT 18 (4-49) U/L Alkaline Phosphatase 90 (38-126) U/L Total Protein 6.9 (6.3-8.2) g/dL Albumin 4.2 (3.5-5.0) g/dL Amylase <30 L (30-110) U/L Lipase <10 L (23-300) U/L Acetone, Qual Positive (Negative) 05/11/19 Range/Units 15:54 WBC (3.8-10.6) k/uL RBC (4.30-5.90) m/uL Hgb (13.0-17.5) gm/dL Hct (39.0-53.0) % MCV (80.0-100.0) fL MCH (25.0-35.0) pg MCHC (31.0-37.0) g/dL RDW (11.5-15.5) % Plt Count (150-450) k/uL Neutrophils % % Lymphocytes % % Monocytes % % Eosinophils % % Basophils % % Neutrophils # (1.3-7.7) k/uL Lymphocytes # (1.0-4.8) k/uL Monocytes # (0-1.0) k/uL Eosinophils # (0-0.7) k/uL Basophils # (0-0.2) k/uL VBG pH 7.32 (7.31-7.41) VBG pCO2 46 (37-51) mmHg VBG HCO3 23 L (24-28) mmol/L Sodium (137-145) mmol/L Potassium (3.5-5.1) mmol/L Chloride (98-107) mmol/L Carbon Dioxide (22-30) mmol/L Anion Gap mmol/L BUN (9-20) mg/dL Creatinine (0.66-1.25) mg/dL Est GFR (CKD-EPI)AfAm (>60 ml/min/1.73 sqM) Est GFR (CKD-EPI)NonAf (>60 ml/min/1.73 sqM) Glucose (74-99) mg/dL Plasma Lactic Acid Len (0.7-2.0) mmol/L Calcium (8.4-10.2) mg/dL Total Bilirubin (0.2-1.3) mg/dL AST (17-59) U/L ALT (4-49) U/L Alkaline Phosphatase (38-126) U/L Total Protein (6.3-8.2) g/dL Albumin (3.5-5.0) g/dL Amylase (30-110) U/L Lipase (23-300) U/L Acetone, Qual (Negative) Critical Care Time Critical Care Time: Yes Total Critical Care Time: 35 Critical Care Time: Total 35 minutes of critical care time used initially evaluated patient, reviewed past medical history, current vitals assess the patient. Labs and urinalysis were initially ordered along with a fluid bolus. Patient probably in DKA started on DKA protocol with no insulin bolus at this time. Case discussed with admitting physician. Disposition Clinical Impression: DKA (diabetic ketoacidoses) Disposition: ADMITTED IP TO THIS HOSP Condition: Fair Referrals: Brown Valenzuela MD [Primary Care Provider] - 1-2 days
[2019-05-11 16:25] LABS: Basophils # (A) 0.2 k/uL (0-0.2); Basophils % (A) 1 %; Eosinophils # (A) 0.3 k/uL (0-0.7); Eosinophils % (A) 2 %; HCT 47.6 % (39.0-53.0); HGB 17.2 gm/dL (13.0-17.5); Lymphocytes # (A) 1.3 k/uL (1.0-4.8); Lymphocytes % (A) 11 %; MCHC 36.2 g/dL (31.0-37.0); MCV 88.4 fL (80.0-100.0); Mean Platelet Volume 6.9; Monocytes # (A) 0.6 k/uL (0-1.0); Monocytes % (A) 5 %; Neutrophils # (A) 9.3 k/uL (1.3-7.7); Neutrophils % (A) 78 %; Platelet Count 361 k/uL (150-450); RBC 5.39 m/uL (4.30-5.90); RDW 11.9 % (11.5-15.5); WBC 11.9 k/uL (3.8-10.6)
[2019-05-11 16:27] LABS: VBG PH 7.32 (7.31-7.41)
[2019-05-11 16:38] LABS: ALT 18 U/L (4-49); AST 18 U/L (17-59); African American GFR (CKD) >90 (>60 ml/min/1.73 sqM); Albumin 4.2 g/dL (3.5-5.0); Alkaline Phosphatase 90 U/L (38-126); Amylase <30 U/L (30-110); Anion Gap 15 mmol/L; Blood Urea Nitrogen 23 mg/dL (9-20); Calcium 8.8 mg/dL (8.4-10.2); Carbon Dioxide 21 mmol/L (22-30); Chloride 96 mmol/L (98-107); Glucose 288 mg/dL (74-99); Non-African American GFR(CKD) >90 (>60 ml/min/1.73 sqM); Potassium 4.4 mmol/L (3.5-5.1); Sodium 132 mmol/L (137-145); Total Bilirubin 0.8 mg/dL (0.2-1.3); Total Protein 6.9 g/dL (6.3-8.2)
[2019-05-11] MEDS ORDERED: INSULIN REGULAR 100 UNIT in SODIUM CHLORIDE 0.9% 100 ML IV SCH (17:00)
[2019-05-11 17:41] LABS: Appearance,Urine Clear (Clear); Bilirubin,Urine Negative (Negative); Blood,Urine Negative (Negative); Color,Urine Yellow; Glucose,Urine (UA) 4+ (Negative); Leukocyte Esterase,Urine Negative (Negative); Nitrite,Urine Negative (Negative); PH, Urine 5.5 (5.0-8.0); Protein,Urine Trace (Negative); Specific Gravity,Urine 1.043 (1.001-1.035); Urobilinogen,Urine <2.0 mg/dL (<2.0)
[2019-05-11 17:46] LABS: Glucose,Whole Blood 220 mg/dL (75-99)
[2019-05-11 18:05] LABS: Ketones,Urine 3+ (Negative)
[2019-05-11] MEDS: D5-0.45% NACL WITH KCL 20MEQ/L 1,000 ML IV SCH (18:12)
[2019-05-11 18:49] LABS: Glucose,Whole Blood 217 mg/dL (75-99)
[2019-05-11 19:28] LABS: Glucose,Whole Blood 215 mg/dL (75-99)
[2019-05-11 20:38] LABS: Glucose,Whole Blood 219 mg/dL (75-99)
[2019-05-11] MEDS ORDERED: INSULIN GLARGINE 30 UNIT SQ SCH (21:00)
[2019-05-11] MEDS ORDERED: GABAPENTIN 300 MG CAP PO SCH (21:00)
[2019-05-11] MEDS ORDERED: traZODone HCL 100 MG TAB PO SCH (21:00)
[2019-05-11 21:09] LABS: African American GFR (CKD) >90 (>60 ml/min/1.73 sqM); Anion Gap 6 mmol/L; Blood Urea Nitrogen 20 mg/dL (9-20); Carbon Dioxide 27 mmol/L (22-30); Chloride 100 mmol/L (98-107); Glucose 197 mg/dL (74-99); Non-African American GFR(CKD) >90 (>60 ml/min/1.73 sqM); Phosphorus 2.5 mg/dL (2.5-4.5); Potassium 3.8 mmol/L (3.5-5.1); Sodium 133 mmol/L (137-145)
[2019-05-11 21:55] LABS: Glucose,Whole Blood 191 mg/dL (75-99)
[2019-05-11 22:31] LABS: Glucose,Whole Blood 183 mg/dL (75-99)
[2019-05-11] MEDS ORDERED: INSULIN DETEMIR (LEVEMIR) 100 UNIT/ML SYR SQ SCH (22:50)
[2019-05-11 23:33] LABS: Glucose,Whole Blood 199 mg/dL (75-99)
[2019-05-12 00:16] LABS: African American GFR (CKD) >90 (>60 ml/min/1.73 sqM); Anion Gap 7 mmol/L; Blood Urea Nitrogen 17 mg/dL (9-20); Carbon Dioxide 25 mmol/L (22-30); Chloride 101 mmol/L (98-107); Glucose 217 mg/dL (74-99); Non-African American GFR(CKD) >90 (>60 ml/min/1.73 sqM); Potassium 3.9 mmol/L (3.5-5.1); Sodium 133 mmol/L (137-145)
[2019-05-12 02:00] LABS: Glucose,Whole Blood 214 mg/dL (75-99)
[2019-05-12] MEDS: D5-0.45% NACL WITH KCL 20MEQ/L 1,000 ML IV SCH ×2 (03:18→06:43)
[2019-05-12 04:59] VITALS: RESP 18
[2019-05-12 06:05] LABS: Glucose,Whole Blood 180 mg/dL (75-99)
[2019-05-12] MEDS: INSULIN ASPART (NovoLOG) 100 UNIT/ML VIAL SQ SCH ×2 (06:46→12:03)
[2019-05-12] MEDS ORDERED: INSULIN ASPART (NovoLOG) 100 UNIT/ML VIAL SQ SCH (07:30)
[2019-05-12] MEDS ORDERED: GABAPENTIN 300 MG CAP PO SCH (09:00)
[2019-05-12 10:24] VITALS: BMI 19.0
[2019-05-12 11:33] LABS: Glucose,Whole Blood 159 mg/dL (75-99)
[2019-05-12 11:50] LABS: Hemoglobin A1C 10.2 % (4.0-6.0)
[2019-05-12] MEDS ORDERED: INSULIN LISPRO (For Pump) 100 UNIT/ML VIAL SQ-PUMP SCH (12:30)
[2019-05-12 14:10] VITALS: BP 103/66; PULSE 116; TEMP 97.4
--- NOTE | 2019-05-12 18:38 | HP ---
HISTORY AND PHYSICAL CHIEF COMPLAINT: DKA. HISTORY OF PRESENT ILLNESS: This is another of many admissions for this 23-year-old white male with type 1 insulin- dependent diabetes mellitus. Of late he has been taking better care of himself and has not been in the hospital. However, he started to have nausea and presented to the emergency room, where he was found to be in DKA. He does not know how he got into trouble. Normally this happens when he just decides to stop his insulin. This was not the case this time. REVIEW OF SYSTEMS: He has been having blurry vision and excessive thirst, but no headache or neurologic problems, and he has had no shortness of breath, cough, sputum production, chest pain, fever, chills, orthopnea, PND, abdominal pain, hematemesis, melena, hematochezia, jaundice, renal failure, hematuria, frequency, urgency, etc. Past medical history, family history, and personal and social histories are otherwise unremarkable. When he was seen last he was on trazodone, gabapentin 600 mg twice a day, NovoLog 6 units before meals, and Lantus 22 units once a day. Surgically he has had T&A. He does not smoke. PHYSICAL EXAMINATION: Blood pressure 97/45 with a pulse of 110, respirations of 40. He is afebrile. In general, he appeared to be slender and dehydrated. Skin color was normal. Skin was warm and dry. Lymph nodes were not enlarged. Head, ears, eyes, nose, mouth and throat were normal except for dry mucous membranes. Chest was clear to auscultation and percussion. Cardiac exam demonstrated sinus tachycardia. The abdomen was flat, soft, nontender. There were no masses or visceromegaly. Extremities were normal. Neurologically he was intact. ADMITTING DIAGNOSES: He is admitted to the hospital with the diagnoses: 1. Diabetic ketoacidosis. 2. Dehydration. 3. Poorly controlled type 1 insulin-dependent diabetes mellitus. PLAN: 1. Bed rest. 2. IV fluids. 3. Correct acid-base balance. 4. Bring blood sugars under good control and then discharge. MMODL / IJN: [id number] /
--- NOTE | 2019-05-12 23:55 | DS ---
DISCHARGE SUMMARY DATE OF ADMISSION: 05/11/2019 DATE OF DISCHARGE: 05/12/2019 CHIEF COMPLAINT: DKA. HISTORY OF PRESENT ILLNESS AND PHYSICAL EXAMINATION: Details of this young man's history and physical can be found in the initial workup. LABORATORY STUDIES: While he was in the hospital he had laboratory studies, details of which can be found in the laboratory section of his chart. COURSE IN THE HOSPITAL: After admission he was placed on bedrest and started on intravenous fluids and an insulin drip. Sugars came down abruptly and his anion gap was closed. He was doing well, eating and well hydrated. It was felt that he could be discharged on May 12, and he will go home on his usual medication and insulin management and be seen in the office in 1 or 2 days. FINAL DIAGNOSES: 1. Diabetic ketoacidosis. 2. Dehydration. OPERATIONS: None. CONSULTATIONS: None. He is improved. GRACE / ALDEN: [id number] /
== END 2019-05-12 16:23 | disposition home or self-care (01) ==
LOC: EC 15:29 → INTOOBSV 16:44 → 3SCARD 16:44 → UNDODISIN 05-12 16:23
PROVIDERS: ADMIT Family Medicine; ATTEND Family Medicine
DX: E10.10 Type 1 diabetes mellitus with ketoacidosis without coma (principal); E86.0 Dehydration; E10.43 Type 1 diabetes mellitus with diabetic autonomic (poly)neuropathy; K31.84 Gastroparesis; F13.10 Sedative, hypnotic or anxiolytic abuse, uncomplicated; J45.909 Unspecified asthma, uncomplicated; F12.10 Cannabis abuse, uncomplicated; R21 Rash and other nonspecific skin eruption; F41.9 Anxiety disorder, unspecified; F32.9 Major depressive disorder, single episode, unspecified; Z79.4 Long term (current) use of insulin; Z79.899 Other long term (current) drug therapy; Z90.89 Acquired absence of other organs; Z82.3 Family history of stroke; Z83.438 Family history of other disorder of lipoprotein metabolism and other lipidemia; Z82.49 Family history of ischemic heart disease and other diseases of the circulatory system
CPT/HCPCS: 96365; 96366; 96361; 96375; 99285; 36415; 80051; 80053; 82150; 82565; 82803; 82009; 83605; 83690; 84100; 82947; 84520; 85025; 81003; 83036; G0378 ×2; J2405; 96374

== ENCOUNTER 2019-05-29 10:06 | Emergency (ER) | payer OTHER ==
[2019-05-29 10:32] VITALS: RESP 18
[2019-05-29] MEDS ORDERED: methylPREDNISolone SOD SUCCI 125 MG/2 ML VIAL IM ONE (10:58)
[2019-05-29] MEDS ORDERED: CEPHALEXIN 500 MG CAP PO STA (10:58)
--- NOTE | 2019-05-29 11:23 | ED ---
Skin/Abscess/FB HPI - General Chief complaint: Skin/Abscess/Foreign Body Stated complaint: Leg pain Time Seen by Provider: 05/29/19 10:38 Source: patient, RN notes reviewed, old records reviewed Mode of arrival: ambulatory Limitations: no limitations - History of Present Illness Initial comments: Patient is a 23-year-old male presents emergency room today with a rash over his chest legs back and abdomen. He reports that this rash before. He states since he worsening over his legs with the past week. He reports he is diagnosed with eczema. He states he has not had recent antibiotics or steroids. Patient reports he does see previously see Dr. Espinoza. He states that he feels that he has decreased sensation over her nose left leg on certain area of the rash. Patient states that he's had no fevers or chills. Denies any exposures. - Related Data Home Medications Medication Instructions Recorded Confirmed Gabapentin [Neurontin] 300 mg PO QAM 05/11/19 05/11/19 Gabapentin [Neurontin] 600 mg PO HS 05/11/19 05/11/19 Insulin Lispro [Admelog] 10 unit SQ AC-TID 05/11/19 05/11/19 Previous Rx's Medication Instructions Recorded Insulin Glargine [Lantus] 28 unit SQ HS #1 vial 01/28/19 traZODone HCL [Desyrel] 300 mg PO HS #40 tab 01/28/19 Cephalexin [Keflex] 500 mg PO Q6HR #28 cap 05/29/19 Hydrocortisone Oint 1 applic TOPICAL BID #60 gm 05/29/19 [Hydrocortisone 1% Oint] diphenhydrAMINE HCL [Benadryl] 25 mg PO HS #20 tab 05/29/19 diphenhydrAMINE [Benadryl] 25 mg PO BID PRN #12 capsule 05/29/19 predniSONE 10 mg PO DAILY #15 tab 05/29/19 Allergies Allergy/AdvReac Type Severity Reaction Status Date / Time No Known Allergies Allergy Verified 05/29/19 10:32 Review of Systems ROS Statement: Those systems with pertinent positive or pertinent negative responses have been documented in the HPI. ROS Other: All systems not noted in ROS Statement are negative. Past Medical History Past Medical History: Asthma, Diabetes Mellitus, Skin Disorder Additional Past Medical History / Comment(s): , insulin dependent diabetes oral apraxia; previous suicidal attempts anxiety/depression, previous hospital physicians for DKA,gastroparesis. History of Any Multi-Drug Resistant Organisms: None Reported Past Surgical History: Adenoidectomy Additional Past Surgical History / Comment(s): 2002 Past Anesthesia/Blood Transfusion Reactions: No Reported Reaction Past Psychological History: Anxiety, Depression Smoking Status: Never smoker Past Alcohol Use History: None Reported Past Drug Use History: Marijuana - Past Family History Mother Family Medical History: CVA/TIA Father Family Medical History: Hyperlipidemia, Hypertension Additional Family Medical History / Comment(s): . General Exam - General Exam Comments Initial Comments: 23-year-old male. Alert and oriented. No distress. Limitations: no limitations General appearance: alert, in no apparent distress Head exam: Present: atraumatic, normocephalic, normal inspection Eye exam: Present: normal appearance, PERRL, EOMI. Absent: scleral icterus, conjunctival injection, periorbital swelling ENT exam: Present: normal exam, mucous membranes moist Neck exam: Present: normal inspection. Absent: tenderness, meningismus, lymphadenopathy Respiratory exam: Present: normal lung sounds bilaterally. Absent: respiratory distress, wheezes, rales, rhonchi, stridor Cardiovascular Exam: Present: regular rate, normal rhythm, normal heart sounds. Absent: systolic murmur, diastolic murmur, rubs, gallop, clicks GI/Abdominal exam: Present: soft, normal bowel sounds. Absent: distended, tenderness, guarding, rebound, rigid Extremities exam: Present: normal inspection, full ROM, normal capillary refill. Absent: tenderness, pedal edema, joint swelling, calf tenderness Back exam: Present: normal inspection Neurological exam: Present: alert, oriented X3, CN II-XII intact Psychiatric exam: Present: normal affect, normal mood Skin exam: Present: warm, dry, intact, normal color, rash (Patient has erythematous papular like rash over chest pack abdomen. He has multiple areas on his legs that have coalesced to form linear-like lesions.) Course Vital Signs 05/29/19 10:30 Temperature 97.8 F Pulse Rate 112 H Respiratory 18 Rate Blood Pressure 121/83 O2 Sat by Pulse 96 Oximetry Medical Decision Making - Medical Decision Making 23-year-old male presents emergency room today with diffuse erythematous macular rash over arms chest legs. Worsening of the legs some of the areas of coalescent a linear-like lesions. Patient has had a history of atopic dermatitis the past. Discussed the seems to be an acute flareup. Patient given IM Solu-Medrol and will be discharged steroids. I discussed that Patient should also use steroid creams over the area and have close follow-up with primary care doctor or dermatology. Patient is agreeable to treatment plan. Disposition Clinical Impression: Dermatitis Disposition: HOME SELF-CARE Condition: Good Instructions (If sedation given, give patient instructions): Contact Dermatitis (ED) Additional Instructions: Patient advised to follow-up with your primary care doctor and Ol[facility]. Return to emergency department if any alarming signs or symptoms occur. Prescriptions: diphenhydrAMINE [Benadryl] 25 mg PO BID PRN #12 capsule PRN Reason: Pain diphenhydrAMINE HCL [Benadryl] 25 mg PO HS #20 tab Hydrocortisone Oint [Hydrocortisone 1% Oint] 1 applic TOPICAL BID #60 gm Cephalexin [Keflex] 500 mg PO Q6HR #28 cap predniSONE 10 mg PO DAILY #15 tab Is patient prescribed a controlled substance at d/c from ED?: No Referrals: Brown Valenzuela MD [Primary Care Provider] - 1-2 days Time of Disposition: 11:19
[2019-05-29 11:49] VITALS: BP 130/89; PULSE 97; TEMP 97.9
== END 2019-05-29 11:45 | disposition home or self-care (01) ==
LOC: EC 10:06
DX: L30.9 Dermatitis, unspecified (principal); E11.10 Type 2 diabetes mellitus with ketoacidosis without coma; E11.43 Type 2 diabetes mellitus with diabetic autonomic (poly)neuropathy; K31.84 Gastroparesis; F41.9 Anxiety disorder, unspecified; Z79.4 Long term (current) use of insulin; Z79.899 Other long term (current) drug therapy
CPT/HCPCS: 99283; 96372; J2930

== ENCOUNTER 2019-06-14 08:51 | Emergency (ER) | payer OTHER ==
[2019-06-14 08:55] VITALS: TEMP 97.8
[2019-06-14 09:08] LABS: Glucose,Whole Blood 357 mg/dL (75-99)
[2019-06-14] MEDS ORDERED: SODIUM CHLORIDE 0.9% 2,000 ML IV STA (09:19)
[2019-06-14] MEDS ORDERED: ONDANSETRON 4 MG/2 ML VIAL IVP STA (09:19)
--- NOTE | 2019-06-14 09:28 | ED ---
General Adult HPI - General Source: patient, RN notes reviewed Mode of arrival: ambulatory Limitations: no limitations <Chato Myles - Last Filed: 06/14/19 11:29> <Daena Shin - Last Filed: 06/16/19 22:06> - General Chief complaint: Nausea/Vomiting/Diarrhea Stated complaint: Vomiting Time Seen by Provider: 06/14/19 09:08 - History of Present Illness Initial comments: 23-year-old male with a past medical history of asthma, diabetes mellitus, DKA, gastroparesis presents to the emergency room for chief complaint of nausea vomiting. Patient states this started yesterday and has continued into today. States he is no longer vomiting but does feel nauseous. Denies any abdominal pain associated with this. Denies any diarrhea. Patient states his glucose has been running from 120-170. He does not think he took his Basaglar last night because he was sleeping of and off. Otherwise he has been taking his medications.Patient has no other complaints at this time including shortness of breath, chest pain, abdominal pain,headache, or visual changes. (Chato Myles) - Related Data Home Medications Medication Instructions Recorded Confirmed Gabapentin [Neurontin] 300 mg PO QAM 05/11/19 06/16/19 Gabapentin [Neurontin] 600 mg PO HS 05/11/19 06/16/19 Insulin Glargine,Hum.rec.anlog 28 unit SQ HS 06/16/19 06/16/19 [Basaglar Kwikpen U-100] Insulin Lispro [Admelog] See Protocol SQ ACHS 06/16/19 06/16/19 traZODone HCL [Desyrel] 300 mg PO HS 06/16/19 06/16/19 Previous Rx's Medication Instructions Recorded diphenhydrAMINE HCL [Benadryl] 25 mg PO HS #20 tab 05/29/19 diphenhydrAMINE [Benadryl] 25 mg PO BID PRN #12 capsule 05/29/19 Allergies Allergy/AdvReac Type Severity Reaction Status Date / Time No Known Allergies Allergy Verified 06/16/19 21:08 Review of Systems ROS Other: All systems not noted in ROS Statement are negative. <Chato Myles - Last Filed: 06/14/19 11:29> ROS Other: All systems not noted in ROS Statement are negative. <Deana Shin A - Last Filed: 06/16/19 22:06> ROS Statement: Those systems with pertinent positive or pertinent negative responses have been documented in the HPI. Past Medical History Past Medical History: Asthma, Diabetes Mellitus, Skin Disorder Additional Past Medical History / Comment(s): , insulin dependent diabetes oral apraxia; previous suicidal attempts anxiety/depression, previous hospital physicians for DKA,gastroparesis. History of Any Multi-Drug Resistant Organisms: None Reported Past Surgical History: Adenoidectomy Additional Past Surgical History / Comment(s): 2002 Past Anesthesia/Blood Transfusion Reactions: No Reported Reaction Past Psychological History: Anxiety, Depression Smoking Status: Never smoker Past Alcohol Use History: None Reported Past Drug Use History: None Reported - Past Family History Mother Family Medical History: CVA/TIA Father Family Medical History: Hyperlipidemia, Hypertension Additional Family Medical History / Comment(s): . <Chato Myles P - Last Filed: 06/14/19 11:29> General Exam Limitations: no limitations General appearance: alert, in no apparent distress (Resting comfortably in bed, no abdominal pain) Head exam: Present: atraumatic, normocephalic, normal inspection Eye exam: Present: normal appearance, PERRL, EOMI. Absent: scleral icterus, conjunctival injection, periorbital swelling ENT exam: Present: normal exam, normal oropharynx, mucous membranes moist Neck exam: Present: normal inspection, full ROM. Absent: tenderness, meningismus, lymphadenopathy Respiratory exam: Present: normal lung sounds bilaterally. Absent: respiratory distress, wheezes, rales, rhonchi, stridor Cardiovascular Exam: Present: regular rate, normal rhythm, normal heart sounds. Absent: systolic murmur, diastolic murmur, rubs, gallop, clicks GI/Abdominal exam: Present: soft, normal bowel sounds. Absent: distended, tenderness, guarding, rebound, rigid Neurological exam: Present: alert Psychiatric exam: Present: normal affect, normal mood <Chato Myles P - Last Filed: 06/14/19 11:29> Course Vital Signs 06/14/19 06/14/19 06/14/19 08:52 10:06 11:11 Temperature 97.8 F Pulse Rate 127 H 95 91 Respiratory 20 18 18 Rate Blood Pressure 111/73 114/75 126/87 O2 Sat by Pulse 98 100 97 Oximetry EKG Findings - EKG Comments: EKG Findings:: 0903: Normal sinus rhythm, ventricular rate 99, WA interval 154, QTc 451 <Chato Myles - Last Filed: 06/14/19 11:29> Medical Decision Making - Lab Data Result diagrams: 06/14/19 08:06 06/14/19 08:06 <Chato Myles - Last Filed: 06/14/19 11:29> - Lab Data Result diagrams: 06/14/19 08:06 06/14/19 08:06 <Deana Shin - Last Filed: 06/16/19 22:06> - Medical Decision Making Patient is well-appearing arrival. Patient initially tachycardic with a pulse rate of 127 however shortly after EKG showed a ventricular rate of 99. He is resting comfortably, no nausea vomiting. Alert and answered questions without difficulty. Abdomen soft and nontender.CBC shows a white count of 16.5, likely secondary to emesis. CMP demonstrated glucose of 357. Anion gap of 6. Acetone is negative. Patient was unable to give urine sample. Patient was given 2 L of fluid which did improve his glucose to 246. I discussed with the patient what he would give himself for sliding scale and he stated 4 units. Patient was given this. Patient did not take his long-acting insulin last night because he was sleeping. I discussed the importance of medication compliance. At this time given no evidence of DKA, patient will be discharged home. Recommend he drink any fluids and take his ideations as directed. Recommend he return if he has any worsening symptoms. I did offer to prescribe Zofran which she refused. Patient requesting discharge before rechecking glucose after sliding scale given. (Chato Myles) I was available for consultation in the emergency department. The history and physical exam were done by the midlevel provider. I was consulted for this patients care. I reviewed the case with the midlevel provider and based on their presentation of the patient, I agree with the assessment, medical decision making and plan of care as documented. Chart was dictated using [employer] dictation software. Attempts were made to correct any dictation errors however some typographical errors may persist. (Damer,Deana A) - Lab Data Lab Results 06/14/19 06/14/19 06/14/19 Range/Units 08:06 08:06 09:03 WBC 16.5 H (3.8-10.6) k/uL RBC 5.33 (4.30-5.90) m/uL Hgb 16.5 (13.0-17.5) gm/dL Hct 47.7 (39.0-53.0) % MCV 89.7 (80.0-100.0) fL MCH 31.0 (25.0-35.0) pg MCHC 34.6 (31.0-37.0) g/dL RDW 12.1 (11.5-15.5) % Plt Count 372 (150-450) k/uL Neutrophils % (Manual) 50 % Lymphocytes % (Manual) 20 % Monocytes % (Manual) 3 % Eosinophils % (Manual) 27 % Neutrophils # (Manual) 8.25 H (1.3-7.7) k/uL Lymphocytes # (Manual) 3.30 (1.0-4.8) k/uL Monocytes # (Manual) 0.50 (0-1.0) k/uL Eosinophils # (Manual) 4.46 H (0-0.7) k/uL Nucleated RBCs 0 (0-0) /100 WBC Manual Slide Review Performed Sodium 136 L (137-145) mmol/L Potassium 4.8 (3.5-5.1) mmol/L Chloride 103 (98-107) mmol/L Carbon Dioxide 27 (22-30) mmol/L Anion Gap 6 mmol/L BUN 19 (9-20) mg/dL Creatinine 0.41 L (0.66-1.25) mg/dL Est GFR (CKD-EPI)AfAm >90 (>60 ml/min/1.73 sqM) Est GFR (CKD-EPI)NonAf >90 (>60 ml/min/1.73 sqM) Glucose 357 H (74-99) mg/dL POC Glucose (mg/dL) 357 H (75-99) mg/dL POC Glu Valet ID Tristin Centeno Calcium 8.8 (8.4-10.2) mg/dL Total Bilirubin 0.4 (0.2-1.3) mg/dL AST 30 (17-59) U/L ALT 31 (4-49) U/L Alkaline Phosphatase 106 (38-126) U/L Total Protein 6.7 (6.3-8.2) g/dL Albumin 3.9 (3.5-5.0) g/dL Amylase 41 (30-110) U/L Lipase 37 (23-300) U/L Urine Color Urine Appearance (Clear) Urine pH (5.0-8.0) Ur Specific [place] (1.001-1.035) Urine Protein (Negative) Urine Glucose (UA) (Negative) Urine Ketones (Negative) Urine Blood (Negative) Urine Nitrite (Negative) Urine Bilirubin (Negative) Urine Urobilinogen (<2.0) mg/dL Ur Leukocyte Esterase (Negative) Acetone, Qual Negative (Negative) 06/14/19 06/14/19 Range/Units 10:53 10:53 WBC (3.8-10.6) k/uL RBC (4.30-5.90) m/uL Hgb (13.0-17.5) gm/dL Hct (39.0-53.0) % MCV (80.0-100.0) fL MCH (25.0-35.0) pg MCHC (31.0-37.0) g/dL RDW (11.5-15.5) % Plt Count (150-450) k/uL Neutrophils % (Manual) % Lymphocytes % (Manual) % Monocytes % (Manual) % Eosinophils % (Manual) % Neutrophils # (Manual) (1.3-7.7) k/uL Lymphocytes # (Manual) (1.0-4.8) k/uL Monocytes # (Manual) (0-1.0) k/uL Eosinophils # (Manual) (0-0.7) k/uL Nucleated RBCs (0-0) /100 WBC Manual Slide Review Sodium (137-145) mmol/L Potassium (3.5-5.1) mmol/L Chloride (98-107) mmol/L Carbon Dioxide (22-30) mmol/L Anion Gap mmol/L BUN (9-20) mg/dL Creatinine (0.66-1.25) mg/dL Est GFR (CKD-EPI)AfAm (>60 ml/min/1.73 sqM) Est GFR (CKD-EPI)NonAf (>60 ml/min/1.73 sqM) Glucose (74-99) mg/dL POC Glucose (mg/dL) 246 H (75-99) mg/dL POC Glu Valet ID Kourtney Gamez Calcium (8.4-10.2) mg/dL Total Bilirubin (0.2-1.3) mg/dL AST (17-59) U/L ALT (4-49) U/L Alkaline Phosphatase (38-126) U/L Total Protein (6.3-8.2) g/dL Albumin (3.5-5.0) g/dL Amylase (30-110) U/L Lipase (23-300) U/L Urine Color Light Yellow Urine Appearance Clear (Clear) Urine pH 6.0 (5.0-8.0) Ur Specific [place] 1.046 H (1.001-1.035) Urine Protein Negative (Negative) Urine Glucose (UA) 4+ H (Negative) Urine Ketones Negative (Negative) Urine Blood Negative (Negative) Urine Nitrite Negative (Negative) Urine Bilirubin Negative (Negative) Urine Urobilinogen <2.0 (<2.0) mg/dL Ur Leukocyte Esterase Negative (Negative) Acetone, Qual (Negative) Disposition Is patient prescribed a controlled substance at d/c from ED?: No Time of Disposition: 11:25 <Chato Myles P - Last Filed: 06/14/19 11:29> <Deana Shin - Last Filed: 06/16/19 22:06> Clinical Impression: Nausea & vomiting, Hyperglycemia Disposition: HOME SELF-CARE Condition: Good Instructions (If sedation given, give patient instructions): Acute Nausea and Vomiting (ED) Additional Instructions: Please drink plenty of fluids. Take your medications as directed. If you have any worsening symptoms return to the emergency department. Referrals: Brown Valenzuela MD [Primary Care Provider] - 1-2 days
[2019-06-14 09:52] LABS: ALT 31 U/L (4-49); AST 30 U/L (17-59); African American GFR (CKD) >90 (>60 ml/min/1.73 sqM); Albumin 3.9 g/dL (3.5-5.0); Alkaline Phosphatase 106 U/L (38-126); Amylase 41 U/L (30-110); Anion Gap 6 mmol/L; Blood Urea Nitrogen 19 mg/dL (9-20); Calcium 8.8 mg/dL (8.4-10.2); Carbon Dioxide 27 mmol/L (22-30); Chloride 103 mmol/L (98-107); Glucose 357 mg/dL (74-99); Non-African American GFR(CKD) >90 (>60 ml/min/1.73 sqM); Potassium 4.8 mmol/L (3.5-5.1); Sodium 136 mmol/L (137-145); Total Bilirubin 0.4 mg/dL (0.2-1.3); Total Protein 6.7 g/dL (6.3-8.2)
[2019-06-14 10:00] LABS: HCT 47.7 % (39.0-53.0); HGB 16.5 gm/dL (13.0-17.5); MCHC 34.6 g/dL (31.0-37.0); MCV 89.7 fL (80.0-100.0); Platelet Count 372 k/uL (150-450); RBC 5.33 m/uL (4.30-5.90); RDW 12.1 % (11.5-15.5); WBC 16.5 k/uL (3.8-10.6)
[2019-06-14 10:08] VITALS: RESP 18
[2019-06-14 10:36] LABS: Eosinophils # (M) 4.46 k/uL (0-0.7); Neutrophils # (M) 8.25 k/uL (1.3-7.7); Neutrophils % (M) 50 %; Nucleated Red Blood Cells 0 /100 WBC (0-0); Total Cells Counted 100
[2019-06-14 10:54] LABS: Glucose,Whole Blood 246 mg/dL (75-99)
[2019-06-14 11:13] VITALS: BP 126/87; PULSE 91
[2019-06-14] MEDS ORDERED: INSULIN ASPART (NovoLOG) 100 UNIT/ML VIAL SQ STA (11:13)
[2019-06-14 11:35] LABS: Appearance,Urine Clear (Clear); Bilirubin,Urine Negative (Negative); Blood,Urine Negative (Negative); Color,Urine Light Yellow; Glucose,Urine (UA) 4+ (Negative); Ketones,Urine Negative (Negative); Leukocyte Esterase,Urine Negative (Negative); Nitrite,Urine Negative (Negative); Protein,Urine Negative (Negative); Urobilinogen,Urine <2.0 mg/dL (<2.0)
[2019-06-14 11:41] LABS: Specific Gravity,Urine 1.046 (1.001-1.035)
== END 2019-06-14 11:34 | disposition home or self-care (01) ==
LOC: EC 08:51
DX: E11.65 Type 2 diabetes mellitus with hyperglycemia (principal); R11.2 Nausea with vomiting, unspecified; E11.43 Type 2 diabetes mellitus with diabetic autonomic (poly)neuropathy; K31.84 Gastroparesis; F41.9 Anxiety disorder, unspecified; F32.9 Major depressive disorder, single episode, unspecified; Z79.4 Long term (current) use of insulin; Z79.899 Other long term (current) drug therapy
CPT/HCPCS: 36415; 93005; 80053; 82150; 82009; 83690; 85025; 81003; 99284; 96374; 96361 ×2; J2405

== ENCOUNTER 2019-06-16 18:41 | Inpatient (IN) | payer OTHER ==
[2019-06-16] MEDS ORDERED: SODIUM CHLORIDE 0.9% 2,000 ML IV ONE (18:59)
[2019-06-16] MEDS ORDERED: MINERAL OIL-WHITE PETROLATUM 120 GM JAR TOPICAL STA (19:23)
[2019-06-16 19:34] LABS: Basophils # (A) 0.3 k/uL (0-0.2); Basophils % (A) 2 %; HCT 50.4 % (39.0-53.0); HGB 16.6 gm/dL (13.0-17.5); Lymphocytes # (A) 2.6 k/uL (1.0-4.8); Lymphocytes % (A) 16 %; MCH 29.8 pg (25.0-35.0); MCHC 32.8 g/dL (31.0-37.0); MCV 90.6 fL (80.0-100.0); Mean Platelet Volume 6.9; Monocytes # (A) 0.8 k/uL (0-1.0); Monocytes % (A) 5 %; Neutrophils # (A) 8.5 k/uL (1.3-7.7); Neutrophils % (A) 51 %; Platelet Count 358 k/uL (150-450); RBC 5.56 m/uL (4.30-5.90); RDW 12.1 % (11.5-15.5); WBC 16.6 k/uL (3.8-10.6)
[2019-06-16 19:36] LABS: Eosinophils # (A) 4.2 k/uL (0-0.7); Eosinophils % (A) 25 %
[2019-06-16 19:44] LABS: ALT 30 U/L (4-49); AST 19 U/L (17-59); African American GFR (CKD) >90 (>60 ml/min/1.73 sqM); Albumin 4.1 g/dL (3.5-5.0); Alkaline Phosphatase 118 U/L (38-126); Anion Gap 10 mmol/L; Blood Urea Nitrogen 12 mg/dL (9-20); Calcium 9.1 mg/dL (8.4-10.2); Carbon Dioxide 28 mmol/L (22-30); Chloride 96 mmol/L (98-107); Non-African American GFR(CKD) >90 (>60 ml/min/1.73 sqM); Potassium 4.6 mmol/L (3.5-5.1); Sodium 134 mmol/L (137-145); Total Bilirubin 0.5 mg/dL (0.2-1.3)
[2019-06-16 20:00] LABS: Glucose 527 mg/dL (74-99)
[2019-06-16] MEDS ORDERED: INSULIN REGULAR 100 UNIT/ML VIAL IV ONE (20:04)
[2019-06-16 20:11] LABS: Appearance,Urine Clear (Clear); Bilirubin,Urine Negative (Negative); Blood,Urine Negative (Negative); Color,Urine Light Yellow; Glucose,Urine (UA) 4+ (Negative); Ketones,Urine 1+ (Negative); Leukocyte Esterase,Urine Negative (Negative); Nitrite,Urine Negative (Negative); PH, Urine 6.5 (5.0-8.0); Protein,Urine Negative (Negative); Specific Gravity,Urine 1.042 (1.001-1.035); Urobilinogen,Urine <2.0 mg/dL (<2.0)
[2019-06-16 20:22] LABS: VBG PH 7.36 (7.31-7.41)
[2019-06-16] MEDS ORDERED: VANCOMYCIN IV PER PHARMACY 1 EACH MISC MISCELLANE PRN (20:42)
[2019-06-16] MEDS ORDERED: AMPICILLIN-SULBACTAM 3 GM in SODIUM CHLORIDE 0.9% 100 ML IVPB STA (20:42)
--- NOTE | 2019-06-16 20:42 | ED ---
General Adult HPI - General Chief complaint: Skin/Abscess/Foreign Body Stated complaint: hand swelling/rash Time Seen by Provider: 06/16/19 18:54 Source: patient, RN notes reviewed Mode of arrival: ambulatory Limitations: no limitations - History of Present Illness Initial comments: This a 23-year-old male with past medical history significant for poorly controlled diabetes presents emergency Department with chief complaint of hyperglycemia, skin rash. Patient states that he has not taken any of his insulin today. He states that he has a severe rash she doesn't with a had some eczema type rash but states that his hands are open, cracking and draining. Patient denies any recent sore throats no fevers or chills. Patient states that he can barely move his fingers because of the rash. - Related Data Home Medications Medication Instructions Recorded Confirmed Gabapentin [Neurontin] 300 mg PO QAM 05/11/19 05/11/19 Gabapentin [Neurontin] 600 mg PO HS 05/11/19 05/11/19 Insulin Lispro [Admelog] 10 unit SQ AC-TID 05/11/19 05/11/19 Previous Rx's Medication Instructions Recorded Insulin Glargine [Lantus] 28 unit SQ HS #1 vial 01/28/19 traZODone HCL [Desyrel] 300 mg PO HS #40 tab 01/28/19 Cephalexin [Keflex] 500 mg PO Q6HR #28 cap 05/29/19 Hydrocortisone Oint 1 applic TOPICAL BID #60 gm 05/29/19 [Hydrocortisone 1% Oint] Insulin Glargine [Lantus] 28 unit SQ HS #2 vial 05/29/19 Insulin Lispro [Admelog] 10 unit SQ ACHS #2 vial 05/29/19 diphenhydrAMINE HCL [Benadryl] 25 mg PO HS #20 tab 05/29/19 diphenhydrAMINE [Benadryl] 25 mg PO BID PRN #12 capsule 05/29/19 predniSONE 10 mg PO DAILY #15 tab 05/29/19 Allergies Allergy/AdvReac Type Severity Reaction Status Date / Time No Known Allergies Allergy Verified 06/16/19 18:51 Review of Systems ROS Statement: Those systems with pertinent positive or pertinent negative responses have been documented in the HPI. ROS Other: All systems not noted in ROS Statement are negative. Past Medical History Past Medical History: Asthma, Diabetes Mellitus, Skin Disorder Additional Past Medical History / Comment(s): , insulin dependent diabetes oral apraxia; previous suicidal attempts anxiety/depression, previous hospital physicians for DKA,gastroparesis. History of Any Multi-Drug Resistant Organisms: None Reported Past Surgical History: Adenoidectomy Additional Past Surgical History / Comment(s): 2002 Past Anesthesia/Blood Transfusion Reactions: No Reported Reaction Past Psychological History: Anxiety, Depression Smoking Status: Never smoker Past Alcohol Use History: None Reported Past Drug Use History: None Reported - Past Family History Mother Family Medical History: CVA/TIA Father Family Medical History: Hyperlipidemia, Hypertension Additional Family Medical History / Comment(s): . General Exam Limitations: no limitations General appearance: alert, in no apparent distress Head exam: Present: atraumatic, normocephalic, normal inspection Eye exam: Present: normal appearance, PERRL, EOMI. Absent: scleral icterus, conjunctival injection, periorbital swelling ENT exam: Present: normal exam, mucous membranes moist Neck exam: Present: normal inspection, full ROM. Absent: tenderness, meningismus, lymphadenopathy Respiratory exam: Present: normal lung sounds bilaterally. Absent: respiratory distress, wheezes, rales, rhonchi, stridor Cardiovascular Exam: Present: normal rhythm, tachycardia, normal heart sounds. Absent: systolic murmur, diastolic murmur, rubs, gallop, clicks GI/Abdominal exam: Present: soft, normal bowel sounds. Absent: distended, tenderness, guarding, rebound, rigid Skin exam: Present: rash (Extensive erythematous papular rash diffuse over the body there is some scaling noted there is drainage, erythema in the digits and crusting noted) Course Vital Signs 06/16/19 06/16/19 18:49 20:16 Temperature 97.9 F Pulse Rate 128 H 104 H Respiratory 20 18 Rate Blood Pressure 117/81 126/79 O2 Sat by Pulse 97 97 Oximetry Medical Decision Making - Medical Decision Making Patient found to be hyperglycemic with extensive rash. There is some concern this may be infectious rash. Patient was started on antibiotics, insulin drip plus or minus steroids tomorrow after evaluation by PCP. Patient's blood sugar is 527. Patient was given 2 L of fluids. Patient was given insulin bolus of 7 units. Patient's labwork otherwise unremarkable. - Lab Data Result diagrams: 06/16/19 19:10 06/16/19 19:10 Lab Results 06/16/19 06/16/19 06/16/19 Range/Units 19:10 19:10 19:10 WBC 16.6 H (3.8-10.6) k/uL RBC 5.56 (4.30-5.90) m/uL Hgb 16.6 (13.0-17.5) gm/dL Hct 50.4 (39.0-53.0) % MCV 90.6 (80.0-100.0) fL MCH 29.8 (25.0-35.0) pg MCHC 32.8 (31.0-37.0) g/dL RDW 12.1 (11.5-15.5) % Plt Count 358 (150-450) k/uL Neutrophils % 51 % Lymphocytes % 16 % Monocytes % 5 % Eosinophils % 25 % Basophils % 2 % Neutrophils # 8.5 H (1.3-7.7) k/uL Lymphocytes # 2.6 (1.0-4.8) k/uL Monocytes # 0.8 (0-1.0) k/uL Eosinophils # 4.2 H (0-0.7) k/uL Basophils # 0.3 H (0-0.2) k/uL VBG pH 7.36 (7.31-7.41) VBG pCO2 54 H (37-51) mmHg VBG HCO3 30 H (24-28) mmol/L Sodium 134 L (137-145) mmol/L Potassium 4.6 (3.5-5.1) mmol/L Chloride 96 L (98-107) mmol/L Carbon Dioxide 28 (22-30) mmol/L Anion Gap 10 mmol/L BUN 12 (9-20) mg/dL Creatinine 0.49 L (0.66-1.25) mg/dL Est GFR (CKD-EPI)AfAm >90 (>60 ml/min/1.73 sqM) Est GFR (CKD-EPI)NonAf >90 (>60 ml/min/1.73 sqM) Glucose 527 H* (74-99) mg/dL Calcium 9.1 (8.4-10.2) mg/dL Total Bilirubin 0.5 (0.2-1.3) mg/dL AST 19 (17-59) U/L ALT 30 (4-49) U/L Alkaline Phosphatase 118 (38-126) U/L Total Protein 7.0 (6.3-8.2) g/dL Albumin 4.1 (3.5-5.0) g/dL Urine Color Urine Appearance (Clear) Urine pH (5.0-8.0) Ur Specific [place] (1.001-1.035) Urine Protein (Negative) Urine Glucose (UA) (Negative) Urine Ketones (Negative) Urine Blood (Negative) Urine Nitrite (Negative) Urine Bilirubin (Negative) Urine Urobilinogen (<2.0) mg/dL Ur Leukocyte Esterase (Negative) Acetone, Qual Negative (Negative) 06/16/19 Range/Units 19:45 WBC (3.8-10.6) k/uL RBC (4.30-5.90) m/uL Hgb (13.0-17.5) gm/dL Hct (39.0-53.0) % MCV (80.0-100.0) fL MCH (25.0-35.0) pg MCHC (31.0-37.0) g/dL RDW (11.5-15.5) % Plt Count (150-450) k/uL Neutrophils % % Lymphocytes % % Monocytes % % Eosinophils % % Basophils % % Neutrophils # (1.3-7.7) k/uL Lymphocytes # (1.0-4.8) k/uL Monocytes # (0-1.0) k/uL Eosinophils # (0-0.7) k/uL Basophils # (0-0.2) k/uL VBG pH (7.31-7.41) VBG pCO2 (37-51) mmHg VBG HCO3 (24-28) mmol/L Sodium (137-145) mmol/L Potassium (3.5-5.1) mmol/L Chloride (98-107) mmol/L Carbon Dioxide (22-30) mmol/L Anion Gap mmol/L BUN (9-20) mg/dL Creatinine (0.66-1.25) mg/dL Est GFR (CKD-EPI)AfAm (>60 ml/min/1.73 sqM) Est GFR (CKD-EPI)NonAf (>60 ml/min/1.73 sqM) Glucose (74-99) mg/dL Calcium (8.4-10.2) mg/dL Total Bilirubin (0.2-1.3) mg/dL AST (17-59) U/L ALT (4-49) U/L Alkaline Phosphatase (38-126) U/L Total Protein (6.3-8.2) g/dL Albumin (3.5-5.0) g/dL Urine Color Light Yellow Urine Appearance Clear (Clear) Urine pH 6.5 (5.0-8.0) Ur Specific [place] 1.042 H (1.001-1.035) Urine Protein Negative (Negative) Urine Glucose (UA) 4+ H (Negative) Urine Ketones 1+ H (Negative) Urine Blood Negative (Negative) Urine Nitrite Negative (Negative) Urine Bilirubin Negative (Negative) Urine Urobilinogen <2.0 (<2.0) mg/dL Ur Leukocyte Esterase Negative (Negative) Acetone, Qual (Negative) Disposition Clinical Impression: Hyperglycemia, Skin rash, Skin infection Disposition: ADMITTED IP TO THIS HOSP Condition: Fair Referrals: Brown Valenzuela MD [Primary Care Provider] - 1-2 days
[2019-06-16] MEDS ORDERED: SODIUM CHLORIDE 0.9% 1,000 ML IV SCH (20:45)
[2019-06-16] MEDS ORDERED: D5-0.45% NACL WITH KCL 20MEQ/L 1,000 ML IV SCH (20:45)
[2019-06-16] MEDS ORDERED: INSULIN REGULAR 100 UNIT in SODIUM CHLORIDE 0.9% 100 ML IV SCH ×2 (20:45→23:15)
[2019-06-16] MEDS ORDERED: VANCOMYCIN 1,250 MG in SODIUM CHLORIDE 0.9% 250 ML IVPB ONE (21:00)
[2019-06-16 21:33] LABS: Glucose,Whole Blood 274 mg/dL (75-99)
[2019-06-16 22:29] LABS: Glucose,Whole Blood 366 mg/dL (75-99)
[2019-06-16 23:41] LABS: Glucose,Whole Blood 167 mg/dL (75-99)
[2019-06-17 00:45] LABS: Glucose,Whole Blood 94 mg/dL (75-99)
[2019-06-17 01:57] LABS: Glucose,Whole Blood 179 mg/dL (75-99)
[2019-06-17 02:58] LABS: Glucose,Whole Blood 235 mg/dL (75-99)
[2019-06-17 04:18] LABS: Glucose,Whole Blood 182 mg/dL (75-99)
[2019-06-17] MEDS ORDERED: INSULIN REGULAR 100 UNIT in SODIUM CHLORIDE 0.9% 100 ML IV SCH (06:00)
[2019-06-17] MEDS ORDERED: VANCOMYCIN 1,250 MG in SODIUM CHLORIDE 0.9% 250 ML IVPB SCH (06:00)
[2019-06-17 06:29] LABS: Glucose,Whole Blood 149 mg/dL (75-99)
[2019-06-17] MEDS: AMPICILLIN-SULBACTAM 3 GM in SODIUM CHLORIDE 0.9% 100 ML IVPB SCH ×3 (07:19→23:05)
[2019-06-17] MEDS: VANCOMYCIN 1,250 MG in SODIUM CHLORIDE 0.9% 250 ML IVPB SCH ×3 (08:08→23:06)
[2019-06-17 08:29] LABS: Glucose,Whole Blood 200 mg/dL (75-99)
[2019-06-17] MEDS ORDERED: diphenhydrAMINE 25 MG CAP PO PRN (09:39)
[2019-06-17 10:05] LABS: Glucose,Whole Blood 276 mg/dL (75-99)
[2019-06-17 12:05] VITALS: BMI 18.7
[2019-06-17 12:05] LABS: Glucose,Whole Blood 132 mg/dL (75-99)
[2019-06-17 13:14] LABS: Glucose,Whole Blood 209 mg/dL (75-99)
[2019-06-17 14:58] LABS: Glucose,Whole Blood 269 mg/dL (75-99)
[2019-06-17 17:02] LABS: Glucose,Whole Blood 250 mg/dL (75-99)
[2019-06-17 19:08] LABS: Glucose,Whole Blood 259 mg/dL (75-99)
[2019-06-17] MEDS ORDERED: INSULIN DETEMIR (LEVEMIR) 100 UNIT/ML SYR SQ SCH (21:00)
[2019-06-17 21:16] LABS: Glucose,Whole Blood 244 mg/dL (75-99)
[2019-06-17] MEDS: traZODone HCL 100 MG TAB PO SCH (22:19)
[2019-06-17] MEDS: GABAPENTIN 300 MG CAP PO SCH (22:19)
[2019-06-17] MEDS: diphenhydrAMINE 25 MG CAP PO SCH (22:19)
[2019-06-17] MEDS: INSULIN ASPART (NovoLOG) 100 UNIT/ML VIAL SQ SCH (22:20)
--- NOTE | 2019-06-17 22:54 | HP ---
HISTORY AND PHYSICAL CHIEF COMPLAINT: DKA. HISTORY OF PRESENT ILLNESS: This is another admission for this young man who is a very noncompliant type 1 insulin- dependent diabetic. He frequently will stop taking his insulin, just as he did this time. He is easily depressed and he has had a psych history. He states that he quit taking the insulin because he got "sick." He was not vomiting when he came in. REVIEW OF SYSTEMS: He has had no chest pain, shortness of breath, abdominal pain, etc. Past medical history, family history, and personal and social histories are all otherwise unremarkable and noncontributory or unchanged. PHYSICAL EXAMINATION: Blood pressure is 115/64 with a pulse of 110, respirations of 40, and he is afebrile. In general he appeared to be very dehydrated and asthenic. Head, ears, eyes, nose, mouth and throat were normal. Chest was clear. Cardiac exam was normal sinus rhythm and he had tachycardia. The abdomen was flat, soft and nontender. There were no masses or visceromegaly. Extremities were normal. Neurologically he was intact. He has had a chronic diffuse dry, erythematous, maculopapular rash which has not responded to any treatment. 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 This is not due to infection. ADMITTING DIAGNOSES: He is admitted to the hospital with the diagnoses: 1. Diabetic ketoacidosis. 2. Dehydration. 3. Atopic dermatitis. 4. Depression. PLAN: 1. Bed rest. 2. IV fluids. 3. Insulin drip. 4. Correct hyperglycemia. MMODL / IJN: [id number] /
--- NOTE | 2019-06-17 23:00 | PN ---
PROGRESS NOTE CHIEF COMPLAINT: DKA and dehydration. HISTORY OF PRESENT ILLNESS: This gentleman is feeling a little bit better. He is still extremely dehydrated. He is still on insulin drip. PHYSICAL EXAMINATION: Neck is supple. Chest is clear. Cardiac exam demonstrates sinus tachycardia. The abdomen is soft, flat and nontender. Extremities are normal. Rash is unchanged. IMPRESSION: 1. Diabetic ketoacidosis. 2. Uncontrolled type 1 insulin diabetic. 3. Dehydration. 4. Atopic dermatitis. PLAN: Continue with insulin and hydration management. MMODL / IJN: [id number] /
[2019-06-18 06:53] LABS: Glucose,Whole Blood 296 mg/dL (75-99)
[2019-06-18] MEDS ORDERED: VANCOMYCIN TROUGH DUE 1 EACH MISC MISCELLANE ONE (07:00)
[2019-06-18] MEDS: INSULIN ASPART (NovoLOG) 100 UNIT/ML VIAL SQ SCH ×6 (08:10→21:23)
[2019-06-18] MEDS: GABAPENTIN 300 MG CAP PO SCH ×2 (08:10→21:23)
[2019-06-18] MEDS: AMPICILLIN-SULBACTAM 3 GM in SODIUM CHLORIDE 0.9% 100 ML IVPB SCH ×2 (08:10→17:20)
[2019-06-18] MEDS: VANCOMYCIN 1,250 MG in SODIUM CHLORIDE 0.9% 250 ML IVPB SCH ×2 (09:17→20:53)
[2019-06-18 09:22] LABS: African American GFR (CKD) >90 (>60 ml/min/1.73 sqM); Non-African American GFR(CKD) >90 (>60 ml/min/1.73 sqM)
[2019-06-18 11:29] LABS: Cholesterol 105 mg/dL (<200); HDL Cholesterol 27 mg/dL (40-60); LDL Cholesterol,Calculated 59 mg/dL (0-99); Triglycerides 94 mg/dL (<150)
[2019-06-18 11:46] LABS: Glucose,Whole Blood 219 mg/dL (75-99)
[2019-06-18 16:57] LABS: Glucose,Whole Blood 306 mg/dL (75-99)
[2019-06-18 17:03] LABS: T4, Free (Free Thyroxine) 1.2 ng/dL (0.78-2.19)
[2019-06-18 18:11] LABS: Hemoglobin A1C 10.8 % (4.0-6.0)
[2019-06-18 20:24] LABS: Glucose,Whole Blood 253 mg/dL (75-99)
--- NOTE | 2019-06-18 21:09 | CONS ---
CONSULTATION DATE OF SERVICE: 06/18/2019. PURPOSE FOR CONSULTATION: Evaluate for mood disorder. HISTORY OF PRESENTING ILLNESS: The patient is a 23-year-old male. He was admitted for diabetic ketoacidosis, dehydration and depression. It is noted that the patient has insulin-dependent diabetes, type 1. He apparently had not been managing his insulin very well. Also he had atopic dermatitis that seemed to have become more acute as reasons for him coming into the hospital. It is noted that the patient has had past psychiatric hospitalizations at this facility and elsewhere. He said his last hospitalization was in January when he came to this emergency department. He was referred to [facility]. He went into rehab. He said that he has had chemical dependency problems, primarily with Xanax. He said that he has been off Xanax and all other abusive substances for "4 months and 15 days." Noted that he was admitted to this facility last January 20, 2019, for depression with suicidal thinking. He had blood sugars above 400 and had weakness and confusion as well. He acknowledged that he had not been compliant with his diabetic regimen as well as appropriate p.o. intake. He was diagnosed with major depression, recurrent, cannabis use disorder and hallucinogen abuse. Currently the patient is on trazodone 300 mg a day as his only primary psychotropic medication. He is also on Neurontin and p.r.n. Benadryl as other psychoactive medications. He indicates that he has been doing fairly well from a standpoint of mood. He says he has not had problems of late with anxiety or depression. He reports that he is sleeping well. He acknowledges that sometimes in the morning he will have some anxiety, though that seems to settle down. He says his big issue is worries about getting a job. He had been living in a 3/4 house. He ended up being out of work and now was discharged from the 3/4 house because he was not able to pay rent. He has been out for the last 5 days. He does anticipate that he will be able to start work fairly soon. He said he has been staying with some friends. He notes that he is not in any ongoing mental health treatment, though he does go to NA meetings daily, which he says has been important for him. He does not identify any problems with hallucinations, delusions or post-traumatic symptoms. He reports no problems with his Desyrel. MENTAL STATUS EXAM: Patient was lying in bed with his head somewhat up. He gave fairly good eye contact. Psychomotor activity was slowed. Speech was monotone. He answered questions with brief responses. He did not say a lot. He was not spontaneous, though he was somewhat interactive. His affect was blunted, his mood reserved, though he was not down or depressed. He did seem to show some emotionality in appropriate way. He had a calm manner. He did appear to be distressed. There was no indication of thought disorder. Cognition was clear. ASSESSMENT: I would continue the diagnosis of major depression, which apparently is in remission as per the patient report. He has been free of abusive substances for 4 months and 15 days as a result of his recent referral to rehabilitation in January. He seems to be fairly motivated to continue off abusive substances, which is a plus. He may be getting some antidepressant benefits from trazodone. If he has more issues with morningtime anxiety, it might be reasonable to consider titrating up on trazodone. In general, trazodone for depression often needs to be in the 400-600 mg range. I will order a urine drug screen to verify lack of abusive substances. At this point I would not continue with any psychiatric followup. If issues arise, please re-consult Psychiatry. MMODL / IJN: [id number] /
[2019-06-18] MEDS: traZODone HCL 100 MG TAB PO SCH (21:22)
[2019-06-18] MEDS: diphenhydrAMINE 25 MG CAP PO SCH (21:23)
[2019-06-18] MEDS: INSULIN DETEMIR (LEVEMIR) 100 UNIT/ML SYR SQ SCH (21:24)
--- NOTE | 2019-06-18 23:02 | PN ---
PROGRESS NOTE CHIEF COMPLAINT: DKA. HISTORY OF PRESENT ILLNESS: This gentleman is feeling fairly well. His hydration is improving. His blood sugar is still quite high. He is not vomiting. PHYSICAL EXAMINATION: Rash remains the same. Chest is clear. Cardiac exam is normal. Abdomen is soft, nontender. IMPRESSION: 1. Diabetic ketoacidosis. 2. Uncontrolled type 1 insulin-dependent diabetes mellitus. PLAN: Increase insulin management. He will probably be able to be discharged tomorrow. MMODL / IJN: [id number] /
[2019-06-19] MEDS: AMPICILLIN-SULBACTAM 3 GM in SODIUM CHLORIDE 0.9% 100 ML IVPB SCH ×3 (00:11→16:31)
[2019-06-19 03:09] LABS: Urine Alcohol Negative (Negative); Urine Barbiturate Negative (Negative); Urine Cocaine Negative (Negative); Urine Methadone Negative (Negative); Urine Opiates Negative (Negative); Urine Phencyclidine Negative (Negative)
[2019-06-19 07:04] LABS: Glucose,Whole Blood 220 mg/dL (75-99)
[2019-06-19 08:15] LABS: African American GFR (CKD) >90 (>60 ml/min/1.73 sqM); Non-African American GFR(CKD) >90 (>60 ml/min/1.73 sqM)
[2019-06-19] MEDS: INSULIN ASPART (NovoLOG) 100 UNIT/ML VIAL SQ SCH ×7 (08:28→20:42)
[2019-06-19] MEDS: GABAPENTIN 300 MG CAP PO SCH ×2 (08:28→20:41)
[2019-06-19] MEDS: VANCOMYCIN 1,250 MG in SODIUM CHLORIDE 0.9% 250 ML IVPB SCH ×2 (09:45→20:42)
[2019-06-19 11:31] LABS: Glucose,Whole Blood 177 mg/dL (75-99)
[2019-06-19] MEDS: TRIAMCINOLONE 0.1% CREAM 80 GM TUBE TOPICAL SCH ×3 (14:24→20:42)
[2019-06-19 16:47] LABS: Glucose,Whole Blood 243 mg/dL (75-99)
--- NOTE | 2019-06-19 18:24 | PN ---
PROGRESS NOTE CHIEF COMPLAINT: DKA and dermatitis. HISTORY OF PRESENT ILLNESS: This gentleman's sugars are still slightly high and insulin is being increased. His macular papular scaly dermatitis of the left hand has suddenly gotten much worse. There is no bleeding and there is no exudate. PHYSICAL EXAMINATION: Chest is clear. Cardiac exam is normal. The left hand is covered with generalized rapid exfoliative dermatitis. IMPRESSION: 1. Uncontrolled type 1 diabetes mellitus. 2. Eczema. PLAN: Start 2.5% hydrocortisone cream in all affective areas 4 times a day. MMODL / IJN: [id number] /
[2019-06-19 20:34] LABS: Glucose,Whole Blood 189 mg/dL (75-99)
[2019-06-19] MEDS: traZODone HCL 100 MG TAB PO SCH (20:41)
[2019-06-19] MEDS: diphenhydrAMINE 25 MG CAP PO SCH (20:41)
[2019-06-19] MEDS: INSULIN DETEMIR (LEVEMIR) 100 UNIT/ML SYR SQ SCH (21:16)
[2019-06-20] MEDS: AMPICILLIN-SULBACTAM 3 GM in SODIUM CHLORIDE 0.9% 100 ML IVPB SCH ×3 (01:11→16:05)
[2019-06-20 07:01] LABS: Glucose,Whole Blood 229 mg/dL (75-99)
[2019-06-20] MEDS: GABAPENTIN 300 MG CAP PO SCH ×2 (08:00→21:23)
[2019-06-20] MEDS ORDERED: VANCOMYCIN TROUGH DUE 1 EACH MISC MISCELLANE ONE (08:00)
[2019-06-20] MEDS: INSULIN ASPART (NovoLOG) 100 UNIT/ML VIAL SQ SCH ×7 (08:01→21:24)
[2019-06-20] MEDS: TRIAMCINOLONE 0.1% CREAM 80 GM TUBE TOPICAL SCH ×4 (08:04→21:25)
[2019-06-20 08:06] LABS: African American GFR (CKD) >90 (>60 ml/min/1.73 sqM); Non-African American GFR(CKD) >90 (>60 ml/min/1.73 sqM)
[2019-06-20] MEDS: VANCOMYCIN 1,250 MG in SODIUM CHLORIDE 0.9% 250 ML IVPB SCH ×2 (09:51→17:09)
[2019-06-20 11:52] LABS: Glucose,Whole Blood 196 mg/dL (75-99)
[2019-06-20 16:26] LABS: Glucose,Whole Blood 334 mg/dL (75-99)
[2019-06-20 21:23] LABS: Glucose,Whole Blood 252 mg/dL (75-99)
[2019-06-20] MEDS: traZODone HCL 100 MG TAB PO SCH (21:23)
[2019-06-20] MEDS: diphenhydrAMINE 25 MG CAP PO SCH (21:23)
[2019-06-21] MEDS: AMPICILLIN-SULBACTAM 3 GM in SODIUM CHLORIDE 0.9% 100 ML IVPB SCH ×4 (01:11→23:06)
[2019-06-21] MEDS: VANCOMYCIN 1,250 MG in SODIUM CHLORIDE 0.9% 250 ML IVPB SCH ×3 (01:12→17:24)
[2019-06-21 07:21] LABS: Glucose,Whole Blood 335 mg/dL (75-99)
[2019-06-21] MEDS: INSULIN DETEMIR (LEVEMIR) 100 UNIT/ML SYR SQ SCH (07:42)
[2019-06-21] MEDS: GABAPENTIN 300 MG CAP PO SCH ×2 (07:42→21:12)
[2019-06-21] MEDS: INSULIN ASPART (NovoLOG) 100 UNIT/ML VIAL SQ SCH ×7 (07:43→21:18)
[2019-06-21] MEDS: TRIAMCINOLONE 0.1% CREAM 80 GM TUBE TOPICAL SCH ×4 (07:43→21:13)
[2019-06-21 12:01] LABS: Glucose,Whole Blood 251 mg/dL (75-99)
[2019-06-21] MEDS ORDERED: VANCOMYCIN TROUGH DUE 1 EACH MISC MISCELLANE ONE (15:00)
[2019-06-21 16:57] LABS: Glucose,Whole Blood 149 mg/dL (75-99)
[2019-06-21 20:52] LABS: Glucose,Whole Blood 223 mg/dL (75-99)
[2019-06-21] MEDS: traZODone HCL 100 MG TAB PO SCH (21:12)
[2019-06-21] MEDS: diphenhydrAMINE 25 MG CAP PO SCH (21:12)
[2019-06-22] MEDS: VANCOMYCIN 1,250 MG in SODIUM CHLORIDE 0.9% 250 ML IVPB SCH ×3 (00:23→18:01)
--- NOTE | 2019-06-22 05:46 | PN ---
PROGRESS NOTE CHIEF COMPLAINT: DKA and exfoliative dermatitis. HISTORY OF PRESENT ILLNESS: This gentleman's blood sugars are still high and we are gradually raising his insulin. He has an extensive dry, scaly, maculopapular dermatitis of the arms, trunk and legs, which is particularly pronounced in the hands right now. PHYSICAL EXAMINATION: Chest is clear. Cardiac exam is normal. Abdomen is nontender. The dermatitis on his hands and arms is rapidly getting worse. We will prescribe hydrocortisone cream to be put on 4 or 5 times a day to see if this settles down the activity of the rash. It would be preferred not to place him on systemic steroids because of his diabetes which still is not well controlled. MMODL / IJN: [id number] /
--- NOTE | 2019-06-22 05:56 | PN ---
PROGRESS NOTE CHIEF COMPLAINT: Uncontrolled diabetes with DKA and exfoliative dermatitis. HISTORY OF PRESENT ILLNESS: This gentleman's blood sugars are still slightly elevated and will increase his insulin. Rash is still extensive despite the hydrocortisone cream. PHYSICAL EXAMINATION: He still has an extensive scaly dermatitis of particularly the hands, arms and the rest of his body. Chest is clear. Cardiac exam is normal. IMPRESSION: 1. Exfoliative dermatitis probably on an atopic basis. 2. Uncontrolled diabetes. PLAN: Continue to increase his insulin until sugars are well controlled. Meantime, he will be applying hydrocortisone cream to his rash areas 4 to 6 times a day. MMODL / IJN: [id number] /
[2019-06-22] MEDS: AMPICILLIN-SULBACTAM 3 GM in SODIUM CHLORIDE 0.9% 100 ML IVPB SCH ×3 (07:13→23:16)
[2019-06-22] MEDS: INSULIN ASPART (NovoLOG) 100 UNIT/ML VIAL SQ SCH ×7 (07:14→21:18)
[2019-06-22] MEDS: INSULIN DETEMIR (LEVEMIR) 100 UNIT/ML SYR SQ SCH (07:14)
[2019-06-22 07:15] LABS: Glucose,Whole Blood 355 mg/dL (75-99)
[2019-06-22] MEDS: GABAPENTIN 300 MG CAP PO SCH ×2 (07:15→21:17)
[2019-06-22] MEDS: TRIAMCINOLONE 0.1% CREAM 80 GM TUBE TOPICAL SCH ×4 (09:08→21:18)
[2019-06-22 09:41] LABS: African American GFR (CKD) >90 (>60 ml/min/1.73 sqM); Non-African American GFR(CKD) >90 (>60 ml/min/1.73 sqM)
[2019-06-22 12:02] LABS: Glucose,Whole Blood 342 mg/dL (75-99)
--- NOTE | 2019-06-22 14:37 | CDI ---
Documentation Clarification Form Date: 06/22/2019 02:16:34 PM From: Luanne Bacon Admit Date: 06/18/2019 02:58:00 PM Patient Name: Raul Marquez Visit Number: [id number] Discharge Date: ATTENTION: The Clinical Documentation Specialists (CDI) and [facility] Coding Staff appreciate your assistance in clarifying documentation. Please respond to the clarification below the line at the bottom and electronically sign. The CDI & [facility] Coding staff will review the response and follow-up if needed. Please note: Queries are made part of the Legal Health Record. If you have any questions, please contact the author of this message via ITS. Dr. Brown Valenzuela BMI 18.7 and Underweight are documented in the Nutritional assessment 06/17/2019 History/Risk Factors: 23-year-old male presents to the ED with hyperglycemia and diffuse skin rash. Medical history T1DM, Asthma, Anxiety, Depression, DKA, Gastroparesis Clinical Indicators: Labs: Current BMI: 18.7 kg/m Insufficient energy intake: Weight Loss: Per Nutritional assessment Weight fluctuates between 58-72kg x past four months of admits per EMR Treatment: Dietary Consult: suspect poor DM control glucose 527 on admit 06/16 Goals weigh gain controlled blood sugar meeting 75% of estimated nutritional needs. Supplements: Glucerna BID kcal/Serving 220 protein serving 10 Monitor po, diet education, Monitor supplement intake, weights, DM diet review. In your professional opinion, can you please clarify if these findings signify one of the following conditions? * Mild Protein-Calorie Malnutrition * Moderate Protein-Calorie Malnutrition * Severe Protein-Calorie Malnutrition * Other condition, please specify * Unable to determine (Last Revision: November 2018) MTDD
--- NOTE | 2019-06-22 15:04 | P.PN ---
Progress Note - Text Progress Note Date: 06/22/19 Psychiatric progress note: Interval History: Patient was seen today in request of primary care physician to discuss antidepressant options with patient. Patient is also seen for follow-up as he was previously seen by Dr. Gould on 06/18. Patient was admitted for DKA and depression and was restarted on his trazodone and also has been having his insulin doses adjusted. Patient was seen at the bedside and appeared to be resting comfortably. Patient states that she has been continuing to struggle with substance abuse and has previously gone to rehab in [facility] and also spoke about his difficulty controlling his blood sugars. Patient spoke of his depression however states that it's "not too bad right now" however did state that he was thinking about being restarted on an antidepressant. Patient states that he was previously on Prozac 80 mg approximately 3 months ago and stopped taking it as he states that "I was feeling better". At this time he claims that he is not following up with [facility] although states that he is connected with them in their services. Patient denies any trouble with sleep. He denies any anxiety at this time. At this time patient denies any suicidal or homical ideations, intent or plan. Patient denies any auditory, visual hallucinations and denies any paranoia or delusions. Patient denies any side effects from the medications and has been compliant with meds. Mental Status Exam: General Appearance: [Patient appears to be stated age is alert, tall/10, pleasant, and cooperative.] Marginal hygiene and grooming. Significant rash over his upper extremity. Behavior: [Patient is calmly laying in his bed without any agitated behavior.] Speech: Patient's speech is fluent and nonpressured. Mood/Affect: Mood is "not too bad", affect is congruent Suicidality/Homicidality: Patient denies having any suicidal or homicidal ideation intent or plan. Perceptions: Patient denies any visual hallucinations [and denies any auditory hallucinations] Though content/process: [There is no evidence of any delusional thought content and thought process is linear and goal-directed.] Minimizes symptoms. Memory and concentration: AOX3, grossly intact for the purposes of this session Judgment and insight: Chronically limited. Assessment Major depressive disorder, mild Plan: -At this time patient does not meet criteria for inpatient psychiatric hospitalization. -Patient is agreeable to start Prozac 20 mg daily for mood. This dose can be maintained for several days before being evaluated for titration up to 40 mg daily, this can be done as an outpatient. Can continue with trazodone 300 mg daily at bedtime for mood/insomnia. -Spoke with patient about the importance of medication compliance, lifestyle changes, diabetic management and also the importance of follow-up with [facility] and his primary care physician. Verbally understood and agreed however was superficial. -Psychiatry will sign off at this time.
[2019-06-22 16:58] LABS: Glucose,Whole Blood 236 mg/dL (75-99)
[2019-06-22 20:27] LABS: Glucose,Whole Blood 136 mg/dL (75-99)
[2019-06-22] MEDS: diphenhydrAMINE 25 MG CAP PO SCH (21:17)
[2019-06-22] MEDS: traZODone HCL 100 MG TAB PO SCH (21:17)
--- NOTE | 2019-06-22 22:32 | PN ---
PROGRESS NOTE CHIEF COMPLAINT: Uncontrolled diabetes and exfoliative atopic dermatitis. HISTORY OF PRESENT ILLNESS: This gentleman's rash is doing a little bit the same and is slightly improved. It is still very dry. He has no pruritus with this rash. He is also expressing a desire to see Psychiatry again for his depression. Blood sugars are still slightly elevated. PHYSICAL EXAMINATION: Chest is clear. Cardiac exam is normal. Abdomen is soft and nontender. His rash is still extensively scaly, but slightly less erythematous. IMPRESSION: 1. Uncontrolled type 1 diabetes mellitus. 2. Atopic dermatitis. 3. Depression. PLAN: 1. Increase his insulin. 2. Psychiatry referral for depression. MMODL / IJN: [id number] /
[2019-06-23] MEDS: VANCOMYCIN 1,250 MG in SODIUM CHLORIDE 0.9% 250 ML IVPB SCH ×3 (00:07→17:03)
[2019-06-23] MEDS ORDERED: INSULIN DETEMIR (LEVEMIR) 100 UNIT/ML SYR SQ SCH (07:00)
[2019-06-23 07:26] LABS: Glucose,Whole Blood 310 mg/dL (75-99)
[2019-06-23] MEDS: INSULIN ASPART (NovoLOG) 100 UNIT/ML VIAL SQ SCH ×6 (08:13→17:29)
[2019-06-23] MEDS: GABAPENTIN 300 MG CAP PO SCH (08:14)
[2019-06-23] MEDS: AMPICILLIN-SULBACTAM 3 GM in SODIUM CHLORIDE 0.9% 100 ML IVPB SCH ×2 (08:14→17:02)
[2019-06-23] MEDS: TRIAMCINOLONE 0.1% CREAM 80 GM TUBE TOPICAL SCH ×3 (08:15→17:03)
[2019-06-23] MEDS ORDERED: FLUoxetine HCL 20 MG CAP PO SCH (09:00)
[2019-06-23 11:40] LABS: Glucose,Whole Blood 188 mg/dL (75-99)
--- NOTE | 2019-06-23 14:31 | CDI ---
Documentation Clarification Form Date: 06/23/2019 From: Luanne Bacon Admit Date: 06/18/2019 02:58:00 PM Patient Name: Raul Marquez Visit Number: [id number] Discharge Date: ATTENTION: The Clinical Documentation Specialists (CDI) and [facility] Coding Staff appreciate your assistance in clarifying documentation. Please respond to the clarification below the line at the bottom and electronically sign. The CDI & [facility] Coding staff will review the response and follow-up if needed. Please note: Queries are made part of the Legal Health Record. If you have any questions, please contact the author of this message via ITS. Dr. Brown Valenzuela Due to multiple impressions clarification is sought for reason for admission History/Risk Factors: 23- year -old male presents to the ED with complaints of hyperglycemia and skin rash. Medical history Type 1DM; Non-compliant Clinical Indicators: Diabetic Ketoacidosis in the H & P 06/17/19 Patient found to be hyperglycemic with extensive rash. There is concern this may be infectious rash. Skin infection In ED Note 06/16/19 Also, he had atopic dermatitis that seemed to have become more acute as reasons for him coming into the hospital Consult Psychology 06/18/19 VSS 06/16 117/81 128 97.9 20 97% ra Labs 06/16 WBC 16.6; Neutrophils 8.5; eosinophils 4.2; Basophils 0.3; VBG pC02 54; VBG HCO3 30; Na 134; chl 96; Cr 0.49; Glucose 527; UA- specific gravity 1.042, glucose 4+; Ketones 1+; Acetone, qual Negative. POC Glucose 06/16 167; 06/17 235; 06/18 296; 06/19 177; 06/20 334; 06/21 149; 06/22 342/ 06/23 188 Treatment: 06/16 0.9ns 2L Iv Bolus followed with 200cc/hr; Ampicillin Ivpb Q8Hr; 06/16 Vancomycin Ivpb Q 8H: 06/16 Humulin R 7units iv x1 with Humulin Gtt Ivpb 101mls @ 6.872 mls/hr Dcd 06/17; 06/17 Novolog ACHS; 06/17 Levemir 28 units HS 06/19 Kenalog topical QID After study please render your opinion on condition(s) chiefly responsible for admission * Atopic Dermatitis and Uncontrolled Diabetes with Hyperglycemia * Atopic Dermatitis and DKA * Other explanation of clinical findings * Unable to determine (no explanation for clinical findings) (Last Revision: August 2017) MAURICIO
--- NOTE | 2019-06-23 14:32 | CDI ---
Documentation Clarification Form Date: 06/23/2019 02:15:37 PM From: Luanne Bacon Admit Date: 06/18/2019 02:58:00 PM Patient Name: Raul Marquez Visit Number: [id number] Discharge Date: ATTENTION: The Clinical Documentation Specialists (CDI) and [facility] Coding Staff appreciate your assistance in clarifying documentation. Please respond to the clarification below the line at the bottom and electronically sign. The CDI & [facility] Coding staff will review the response and follow-up if needed. Please note: Queries are made part of the Legal Health Record. If you have any questions, please contact the author of this message via ITS. Dr. Brown Valenzuela Review of the medical record shows patient receiving Ampicillin Ivpb and Vancomycin Ivpb History/Risk Factors: 23- year -old male presents to the ED with complaints of hyperglycemia and skin rash. Atopic Dermatitis, Dehydration. Medical history Type 1DM; Non-compliant, Clinical Indicators:06/16 ED notes reporting unable to bend fingers with drainage from cracked skin, Skin infection: 06/17 HP notes no infection VSS 06/16 117/81 128 97.9 20 97% ra Labs 06/16 WBC 16.6; Neutrophils 8.5; eosinophils 4.2; Basophils 0.3; Glucose 527 POC Glucose 06/16 167; 06/17 235; 06/18 296; 06/19 177; 06/20 334; 06/21 149; 06/22 342/ 06/23 188 Treatment: 06/16 0.9ns 2L Iv Bolus followed with 200cc/hr; Ampicillin Ivpb Q8Hr; 06/16 Vancomycin Ivpb Q 8H: 06/16 Insulin gtt tiems 1 hr followed with Subq insulin 06/19 Kenalog topical QID After study please render your opinion on condition being treated with IV Vancomycin and IV Ampicillin * IV Vancomycin and IV Ampicillin given for (please specify) Other * Unable to determine (Last Revision: August 2017) MTDD
[2019-06-23 16:28] VITALS: BP 114/71; PULSE 117; RESP 14; TEMP 98
[2019-06-23 17:02] LABS: Glucose,Whole Blood 122 mg/dL (75-99)
--- NOTE | 2019-06-23 23:17 | DS ---
DISCHARGE SUMMARY CHIEF COMPLAINT: DKA. HISTORY OF PRESENT ILLNESS AND PHYSICAL EXAMINATION: Details of this man's and history and physical can be found in the initial workup. LABORATORY STUDIES: While he was in the hospital he had laboratory studies, details of which can be found in the laboratory section of his chart. COURSE IN THE HOSPITAL: After admission he was placed on bedrest, started on intravenous fluids, and blood sugars were brought down under control. He was placed on a basal bolus program and despite frequent increases in his dosage, his blood sugars remained fairly high. The rest of his hospitalization was spent in trying to deal with his atopic dermatitis. Hydrocortisone cream seemed to be making a difference. He requested to see Psychiatry while he was in the hospital. He has had problems with depression in the past. They saw the patient and recommended outpatient therapy and antidepressants with Remeron. He was doing well and it was felt he could go home on June 23. He will go home on basal bolus program of insulin and Remeron as well as hydrocortisone cream 2.5% four times a day to his atopic dermatitis. He will be seen in the office in several days. FINAL DIAGNOSES: 1. Diabetic ketoacidosis. 2. Uncontrolled insulin-dependent diabetes mellitus. 3. Exfoliative atopic dermatitis. 4. Depression. OPERATIONS: None. CONSULTATION: Psychiatry. He is improved. MMODL / IJN: [id number] /
[2019-06-24] MEDS ORDERED: VANCOMYCIN TROUGH DUE 1 EACH MISC MISCELLANE ONE (07:00)
--- NOTE | 2019-06-24 10:46 | MISC ---
MISCELLANOUS REPORT Mild protein calorie malnutrition. Atopic dermatitis and uncontrolled diabetes, hyperglycemia. IV vancomycin, IV ampicillin. Unable to determine. MMODL / IJN: [id number] /
== END 2019-06-23 17:48 | disposition home or self-care (01) | DRG 607 ==
LOC: EC 18:41 → 6NMEDSUR 20:38 → OBSVTOIN 06-18 14:58
PROVIDERS: ADMIT Family Medicine; ATTEND Family Medicine
DX: L20.9 Atopic dermatitis, unspecified (principal); F33.9 Major depressive disorder, recurrent, unspecified; E44.1 Mild protein-calorie malnutrition; Z68.1 Body mass index [BMI] 19.9 or less, adult; K31.84 Gastroparesis; E10.43 Type 1 diabetes mellitus with diabetic autonomic (poly)neuropathy; E10.65 Type 1 diabetes mellitus with hyperglycemia; E86.0 Dehydration; R48.2 Apraxia; J45.909 Unspecified asthma, uncomplicated; T38.3X6A Underdosing of insulin and oral hypoglycemic [antidiabetic] drugs, initial encounter; F41.9 Anxiety disorder, unspecified; Z79.4 Long term (current) use of insulin; Z79.899 Other long term (current) drug therapy; Z91.5 Personal history of self-harm; Z98.890 Other specified postprocedural states; Z82.49 Family history of ischemic heart disease and other diseases of the circulatory system; Z83.49 Family history of other endocrine, nutritional and metabolic diseases; Z82.3 Family history of stroke; Y92.009 Unspecified place in unspecified non-institutional (private) residence as the place of occurrence of the external cause; Y63.6 Underdosing and nonadministration of necessary drug, medicament or biological substance
CPT/HCPCS: 36415; 80053; 80061; 80202; 80306; 81003; 82009; 82565; 82803; 83036; 83605; 84439; 84443; 85025; 87040; 96361; 96365; 99284

== ENCOUNTER 2019-07-05 20:55 | Emergency (ER) | payer OTHER ==
[2019-07-05 21:19] LABS: Glucose,Whole Blood 319 mg/dL (75-99)
[2019-07-05] MEDS ORDERED: MAG HYDROX/AL HYDROX/SIMETH 30 ML, HYOSCYAMINE ELIXIR 10 ML, LIDOCAINE VISCOUS 2% 10 ML PO STA ×3 (22:04)
[2019-07-05] MEDS ORDERED: SODIUM CHLORIDE 0.9% 1,000 ML IV ONE ×2 (22:04→23:09)
--- NOTE | 2019-07-05 22:08 | ED ---
Chest Pain HPI - General Chief Complaint: Chest Pain Stated Complaint: chest pain/shortness of breath Time Seen by Provider: 07/05/19 21:43 Source: patient Mode of arrival: ambulatory Limitations: no limitations - History of Present Illness Initial Comments: This patient is a 23-year-old man who presents with pain to the epigastric and right chest areas, mainly along the costal margin on the right. The patient states that it had come on to 3 hours ago. He states he was at rest. He did not have any trauma that he recalls. He states that the pain is constant and moderately severe. It gets worse with palpation or sometimes with certain movements. He has not noted relieving factors. No associated symptoms. MD Complaint: chest pain Onset/Timin -: hour(s) Onset: during rest Pain Location: right chest, epigastric Pain Radiation: none Severity: moderate Quality: aching Consistency: constant Improves With: nothing Worsens With: palpation, movement Treatments Prior to Arrival: none - Related Data Home Medications Medication Instructions Recorded Confirmed Gabapentin [Neurontin] 300 mg PO QAM 05/11/19 06/16/19 Gabapentin [Neurontin] 600 mg PO HS 05/11/19 06/16/19 traZODone HCL [Desyrel] 300 mg PO HS 06/16/19 06/16/19 Previous Rx's Medication Instructions Recorded diphenhydrAMINE HCL [Benadryl] 25 mg PO HS #20 tab 05/29/19 diphenhydrAMINE [Benadryl] 25 mg PO BID PRN #12 capsule 05/29/19 FLUoxetine HCL [PROzac] 20 mg PO DAILY #10 cap 06/23/19 INSULIN ASPART (NovoLOG) [NovoLOG 16 unit SQ AC-TID #90 vial 06/23/19 (formulary)] Insulin Detemir (Levemir) [Levemir] 80 unit SQ DAILY@0700 30 Days #30 06/23/19 pen Triamcinolone 0.1% Cream [Kenalog 1 applic TOPICAL QID 30 Days #60 06/23/19 0.1% Cream] gram Allergies Allergy/AdvReac Type Severity Reaction Status Date / Time No Known Allergies Allergy Verified 07/05/19 21:13 Review of Systems ROS Statement: Those systems with pertinent positive or pertinent negative responses have been documented in the HPI. ROS Other: All systems not noted in ROS Statement are negative. Constitutional: Denies: fever, chills Respiratory: Denies: cough, dyspnea Cardiovascular: Reports: as per HPI, chest pain. Denies: palpitations, orthopnea, edema, syncope Gastrointestinal: Denies: abdominal pain, nausea, vomiting, diarrhea, constipation Genitourinary: Denies: dysuria, hematuria Musculoskeletal: Denies: back pain Skin: Denies: rash Neurological: Denies: headache, weakness EKG Findings - EKG Results: EKG: interpreted by RUDOLPHD, sinus rhythm (Rate 100 bpm), normal QRS, normal ST/T - Blocks, Roll, Hypertrophy, ST Abn: QRS axis and voltage: right axis deviation (+90 to +180) Past Medical History Past Medical History: Asthma, Diabetes Mellitus, Skin Disorder Additional Past Medical History / Comment(s): , insulin dependent diabetes oral apraxia; previous suicidal attempts anxiety/depression, previous hospital physicians for DKA,gastroparesis. History of Any Multi-Drug Resistant Organisms: None Reported Past Surgical History: Adenoidectomy Additional Past Surgical History / Comment(s): 2002 Past Anesthesia/Blood Transfusion Reactions: No Reported Reaction Past Psychological History: Anxiety, Depression Smoking Status: Never smoker Past Alcohol Use History: None Reported Past Drug Use History: None Reported - Past Family History Mother Family Medical History: CVA/TIA Father Family Medical History: Hyperlipidemia, Hypertension Additional Family Medical History / Comment(s): . General Exam Limitations: no limitations General appearance: alert, in no apparent distress Head exam: Present: atraumatic, normocephalic Eye exam: Present: normal appearance. Absent: scleral icterus, conjunctival injection ENT exam: Present: normal oropharynx Neck exam: Present: normal inspection Respiratory exam: Present: normal lung sounds bilaterally, chest wall tenderness (Along the right costal margin). Absent: respiratory distress, wheezes, rales, rhonchi, stridor, accessory muscle use, decreased breath sounds, prolonged expiratory Cardiovascular Exam: Present: regular rate, normal rhythm, normal heart sounds. Absent: systolic murmur, diastolic murmur, rubs, gallop GI/Abdominal exam: Present: soft, tenderness (Along the right costal margin). Absent: distended, guarding, rebound, rigid, mass, pulsatile mass, hernia Extremities exam: Present: normal inspection, normal capillary refill. Absent: pedal edema, calf tenderness Back exam: Present: normal inspection. Absent: CVA tenderness (R), CVA tenderness (L) Neurological exam: Present: alert Skin exam: Present: warm, dry, intact, normal color. Absent: rash Course Vital Signs 07/05/19 07/05/19 07/06/19 21:13 23:46 01:28 Temperature 98 F Pulse Rate 121 H 100 96 Respiratory 18 18 18 Rate Blood Pressure 107/65 115/69 118/78 O2 Sat by Pulse 98 98 98 Oximetry Disposition Clinical Impression: DKA (diabetic ketoacidoses) Disposition: ADMITTED IP TO THIS HOSP Condition: Fair Referrals: Brown Valenzuela MD [Primary Care Provider] - 1-2 days
[2019-07-05 22:42] LABS: HCT 49.7 % (39.0-53.0); HGB 17.1 gm/dL (13.0-17.5); MCH 30.3 pg (25.0-35.0); MCHC 34.5 g/dL (31.0-37.0); MCV 87.9 fL (80.0-100.0); Mean Platelet Volume 7.2; Platelet Count 386 k/uL (150-450); RBC 5.66 m/uL (4.30-5.90); RDW 12.6 % (11.5-15.5)
[2019-07-05 22:48] LABS: ALT 18 U/L (4-49); AST 18 U/L (17-59); African American GFR (CKD) >90 (>60 ml/min/1.73 sqM); Albumin 4.4 g/dL (3.5-5.0); Alkaline Phosphatase 119 U/L (38-126); Amylase 38 U/L (30-110); Anion Gap 19 mmol/L; Blood Urea Nitrogen 12 mg/dL (9-20); Calcium 9.1 mg/dL (8.4-10.2); Carbon Dioxide 17 mmol/L (22-30); Chloride 93 mmol/L (98-107); Glucose 329 mg/dL (74-99); Magnesium 1.7 mg/dL (1.6-2.3); Non-African American GFR(CKD) >90 (>60 ml/min/1.73 sqM); Potassium 4.5 mmol/L (3.5-5.1); Sodium 129 mmol/L (137-145); Total Bilirubin 0.6 mg/dL (0.2-1.3); Total Protein 7.4 g/dL (6.3-8.2)
--- NOTE | 2019-07-05 22:56 | XR ---
EXAMINATION TYPE: XR chest 2V DATE OF EXAM: 07/05/2019 COMPARISON: 12/12/2018 HISTORY: Hyperglycemia TECHNIQUE: FINDINGS: Heart and mediastinum are normal. Lungs are clear. Diaphragm is normal. Bony thorax appears normal. IMPRESSION: Normal chest. No change.
[2019-07-05 23:05] LABS: Lymphocytes # (M) 4.05 k/uL (1.0-4.8); Neutrophils % (M) 44 %; Nucleated Red Blood Cells 1 /100 WBC (0-0); Total Cells Counted 200
[2019-07-05 23:07] LABS: Polychromasia Present
[2019-07-05] MEDS ORDERED: INSULIN REGULAR 100 UNIT/ML VIAL IV STA (23:08)
[2019-07-06] MEDS ORDERED: Potassium Replacement Protocol 1 EACH MISC MISCELLANE PRN (00:11)
[2019-07-06] MEDS ORDERED: Magnesium Replacement Protocol 1 EACH MISC MISCELLANE PRN (00:11)
[2019-07-06] MEDS ORDERED: INSULIN REGULAR 100 UNIT in SODIUM CHLORIDE 0.9% 100 ML IV SCH ×2 (00:15→12:00)
[2019-07-06 00:40] LABS: Glucose,Whole Blood 256 mg/dL (75-99)
[2019-07-06] MEDS: SODIUM CHLORIDE 0.9% 1,000 ML IV SCH ×2 (01:22→06:11)
[2019-07-06 01:43] LABS: Glucose,Whole Blood 247 mg/dL (75-99)
[2019-07-06] MEDS ORDERED: SODIUM CHLORIDE 0.9% 1,000 ML IV SCH (01:45)
[2019-07-06 02:18] LABS: Glucose,Whole Blood 246 mg/dL (75-99)
[2019-07-06] MEDS: D5-0.45% NACL WITH KCL 20MEQ/L 1,000 ML IV SCH ×2 (02:38→09:30)
[2019-07-06 02:48] LABS: Glucose,Whole Blood 174 mg/dL (75-99)
[2019-07-06 02:58] LABS: VBG PH 7.38 (7.31-7.41)
[2019-07-06 03:11] LABS: Glucose,Whole Blood 128 mg/dL (75-99)
[2019-07-06 03:42] LABS: Glucose,Whole Blood 96 mg/dL (75-99)
[2019-07-06 04:20] LABS: Glucose,Whole Blood 134 mg/dL (75-99)
[2019-07-06 04:20] LABS: African American GFR (CKD) >90 (>60 ml/min/1.73 sqM); Blood Urea Nitrogen 13 mg/dL (9-20); Glucose 68 mg/dL (74-99); Non-African American GFR(CKD) >90 (>60 ml/min/1.73 sqM)
[2019-07-06 05:09] LABS: Glucose,Whole Blood 171 mg/dL (75-99)
[2019-07-06 05:58] LABS: Glucose,Whole Blood 220 mg/dL (75-99)
[2019-07-06 07:33] LABS: Glucose,Whole Blood 254 mg/dL (75-99)
[2019-07-06 08:39] LABS: Glucose,Whole Blood 238 mg/dL (75-99)
[2019-07-06 09:21] LABS: ALT 14 U/L (4-49); AST 18 U/L (17-59); African American GFR (CKD) >90 (>60 ml/min/1.73 sqM); Albumin 3.2 g/dL (3.5-5.0); Alkaline Phosphatase 93 U/L (38-126); Anion Gap 10 mmol/L; Blood Urea Nitrogen 12 mg/dL (9-20); Calcium 8.2 mg/dL (8.4-10.2); Carbon Dioxide 24 mmol/L (22-30); Chloride 98 mmol/L (98-107); Glucose 237 mg/dL (74-99); Non-African American GFR(CKD) >90 (>60 ml/min/1.73 sqM); Phosphorus 3.2 mg/dL (2.5-4.5); Potassium 3.8 mmol/L (3.5-5.1); Sodium 132 mmol/L (137-145); Total Bilirubin 0.3 mg/dL (0.2-1.3)
[2019-07-06 09:37] LABS: Glucose,Whole Blood 244 mg/dL (75-99)
[2019-07-06] MEDS ORDERED: GABAPENTIN 300 MG CAP PO SCH ×2 (10:15→21:00)
[2019-07-06 10:49] LABS: Glucose,Whole Blood 284 mg/dL (75-99)
[2019-07-06 11:54] LABS: Glucose,Whole Blood 293 mg/dL (75-99)
[2019-07-06 12:50] LABS: Glucose,Whole Blood 238 mg/dL (75-99)
[2019-07-06] MEDS ORDERED: TRIAMCINOLONE 0.1% CREAM 80 GM TUBE TOPICAL SCH (13:00)
[2019-07-06] MEDS ORDERED: INSULIN ASPART (NovoLOG) 100 UNIT/ML VIAL SQ SCH ×3 (13:22→17:30)
[2019-07-06 14:08] LABS: Potassium 3.8 mmol/L (3.5-5.1)
[2019-07-06 14:42] VITALS: BP 100/69; PULSE 68; RESP 16; TEMP 97
[2019-07-06] MEDS ORDERED: D5-0.45% NACL WITH KCL 20MEQ/L 1,000 ML IV SCH (16:00)
[2019-07-06 19:13] LABS: Hemoglobin A1C 9.9 % (4.0-6.0)
--- NOTE | 2019-07-06 19:39 | HP ---
HISTORY AND PHYSICAL CHIEF COMPLAINT: DKA. HISTORY OF PRESENT ILLNESS: This is another admission for this 23-year-old white male who is an extremely noncompliant type 1 insulin-dependent diabetic. He just went home again recently. He came back in with elevated blood sugar and anion gap of 17. He does not take his insulin appropriately and sometimes will stop it altogether due to his depression. REVIEW OF SYSTEMS: He has had no headaches, neurologic problems, chest pain, abdominal pain, melena, hematochezia, hematemesis, renal failure, etc. Past medical history, family history, and personal and social histories are all otherwise unchanged. He has not been taking his insulin. PHYSICAL EXAMINATION: Blood pressure was 138/86 with a pulse of 114, respirations of 36. He was afebrile. In general he appeared to be tall, slender and dehydrated. Head, ears, eyes, nose, mouth and throat were normal. Neck veins were not distended. Thyroid was not enlarged. Chest was clear. Cardiac exam demonstrated sinus tachycardia. The abdomen was flat, soft and nontender without any visceromegaly or masses. Bowel sounds were present. Extremities were normal. Neurologically he was intact. He had generalized exfoliative dermatitis, which has been worked up as being atopic dermatitis. IMPRESSION: 1. Diabetic ketoacidosis. 2. Uncontrolled type 1 insulin-dependent diabetes mellitus. 3. Noncompliant individual. 4. Atopic dermatitis. PLAN: 1. Bed rest. 2. IV fluids. 3. Correct DKA. MMODL / IJN: [id number] /
[2019-07-06] MEDS ORDERED: INSULIN DETEMIR (LEVEMIR) 100 UNIT/ML SYR SQ SCH ×2 (21:00)
[2019-07-06] MEDS ORDERED: traZODone HCL 100 MG TAB PO SCH (21:00)
--- NOTE | 2019-07-07 07:13 | DS ---
DISCHARGE SUMMARY CHIEF COMPLAINT: DKA. HISTORY OF PRESENT ILLNESS AND PHYSICAL EXAM: Details of this man's history and physical can be found in the initial workup. LABORATORY STUDIES: While he was in a hospital he had laboratory studies, details of which can be found laboratory section of his chart. COURSE IN HOSPITAL: After admission he placed on bedrest, started on intravenous fluids and was being treated for diabetic ketoacidosis when he signed himself out AGAINST MEDICAL ADVICE. FINAL DIAGNOSES: 1. Diabetic ketoacidosis. 2. Uncontrolled type 1 insulin-dependent diabetes mellitus. 3. Depression. 4. Atopic dermatitis. OPERATIONS: None. CONSULTATION: None. He signed out AMA. MMODL / IJN: [id number] /
== END 2019-07-06 14:00 | disposition left against medical advice (07) ==
LOC: EC 20:55 → 3SCARD 07-06 01:42 → UNDOADMIN 07-06 01:42 → EC 07-06 14:00
DX: E10.10 Type 1 diabetes mellitus with ketoacidosis without coma (principal); L20.9 Atopic dermatitis, unspecified; F32.9 Major depressive disorder, single episode, unspecified; F41.9 Anxiety disorder, unspecified; Z79.4 Long term (current) use of insulin; Z79.899 Other long term (current) drug therapy; Z87.19 Personal history of other diseases of the digestive system
CPT/HCPCS: 36415; 71046; 80051; 80053; 82009; 82150; 82565; 82803; 82947; 83036; 83690; 83735; 84100; 84484; 84520; 85025; 93005; 96361; 96365; 96366; 99285

== ENCOUNTER 2019-07-09 18:18 | Emergency (ER) | payer OTHER ==
--- NOTE | 2019-07-09 18:47 | ED ---
General Adult HPI - General Chief complaint: Extremity Injury, Upper Stated complaint: Hand issues Time Seen by Provider: 07/09/19 18:24 Source: patient, RN notes reviewed Mode of arrival: ambulatory Limitations: no limitations - History of Present Illness Initial comments: 23-year-old male with a past medical history of asthma, IDDM, skin disorder pres ents to the emergency department for a chief complaint of rash. Patient states that he has had a rash for several months. States that he has seen cutter machine Dr. Espinoza for this rash and was told it was eczema. Patient states he has also seen his primary care provider who agreed it was eczema. Patient states that he ran out of his cream about a week ago and his rash has worsened. Patient states it is the worst on his hands. States his hand worsened yesterday. Patient states his blood sugar has been generally controlled in the 100s - 200s. Patient has no other complaints at this time including shortness of breath, chest pain, abdominal pain, nausea or vomiting, headache, or visual changes. - Related Data Home Medications Medication Instructions Recorded Confirmed Gabapentin [Neurontin] 300 mg PO QAM 05/11/19 07/06/19 Gabapentin [Neurontin] 600 mg PO HS 05/11/19 07/06/19 traZODone HCL [Desyrel] 300 mg PO HS 06/16/19 07/06/19 Insulin Glargine,Hum.rec.anlog 28 unit SQ HS 07/06/19 07/06/19 [Basaglar Kwikpen U-100] Insulin Lispro [Admelog] 10 units SQ ACHS 07/06/19 07/06/19 Previous Rx's Medication Instructions Recorded Triamcinolone 0.1% Cream [Kenalog 1 applic TOPICAL QID 7 Days #30 g 07/09/19 0.1% Cream] Allergies Allergy/AdvReac Type Severity Reaction Status Date / Time No Known Allergies Allergy Verified 07/09/19 18:19 Review of Systems ROS Statement: Those systems with pertinent positive or pertinent negative responses have been documented in the HPI. ROS Other: All systems not noted in ROS Statement are negative. Past Medical History Past Medical History: Asthma, Diabetes Mellitus, Skin Disorder Additional Past Medical History / Comment(s): , insulin dependent diabetes oral apraxia; previous suicidal attempts anxiety/depression, previous hospital physicians for DKA,gastroparesis. History of Any Multi-Drug Resistant Organisms: None Reported Past Surgical History: Adenoidectomy Additional Past Surgical History / Comment(s): 2002 Past Anesthesia/Blood Transfusion Reactions: No Reported Reaction Past Psychological History: Anxiety, Depression Smoking Status: Never smoker Past Alcohol Use History: None Reported Past Drug Use History: None Reported - Past Family History Mother Family Medical History: CVA/TIA Father Family Medical History: Hyperlipidemia, Hypertension Additional Family Medical History / Comment(s): . General Exam Limitations: no limitations General appearance: alert, in no apparent distress Head exam: Present: atraumatic, normocephalic, normal inspection Eye exam: Present: normal appearance, PERRL, EOMI. Absent: scleral icterus, conjunctival injection, periorbital swelling ENT exam: Present: normal exam, mucous membranes moist Neck exam: Present: normal inspection, full ROM. Absent: tenderness, meningismus, lymphadenopathy Respiratory exam: Present: normal lung sounds bilaterally. Absent: respiratory distress, wheezes, rales, rhonchi, stridor Cardiovascular Exam: Present: regular rate, normal rhythm, normal heart sounds. Absent: systolic murmur, diastolic murmur, rubs, gallop, clicks GI/Abdominal exam: Present: soft, normal bowel sounds. Absent: distended, tenderness, guarding, rebound, rigid Extremities exam: Present: other Skin exam: Present: rash (patient has scaling erythematous macular rash noted to trunk and upper extremities. this does involve palms as well. Patient does have some honey colored crusting as well between some digits) Course Vital Signs 07/09/19 18:19 Temperature 98.0 F Pulse Rate 107 H Respiratory 16 Rate Blood Pressure 112/75 O2 Sat by Pulse 98 Oximetry Medical Decision Making - Medical Decision Making Patient presents for rash. Has had this for several months but ran out of his cream last week so it worsened in the last 2 days. Patient was written a prescription for hydrocortisone 2.5% by his primary care provider. He has seen dermatology who diagnosed with eczema. At this time patient will be prescribed an additional prescription of triamcinolone however I recommended that he follow up with dermatology again on Friday. I recommend he return here with worsening symptoms. He will also follow up with primary care. I did discuss with the patient that he needs to follow-up with dermatology and primary care as he should not be using a steroid cream on his palms for too long as it can cause erosion. I discussed this case with attending Dr. Lynn who agrees with this assessment and treatment plan. Disposition Clinical Impression: Rash Disposition: HOME SELF-CARE Condition: Good Instructions (If sedation given, give patient instructions): Eczema (ED) Additional Instructions: Please use cream as directed. Follow-up with your primary care provider as well as dermatology in the next week. Return to the emergency department if you have any worsening symptoms Prescriptions: Triamcinolone 0.1% Cream [Kenalog 0.1% Cream] 1 applic TOPICAL QID 7 Days #30 g Is patient prescribed a controlled substance at d/c from ED?: No Referrals: Brown Valenzuela MD [Primary Care Provider] - 1-2 days Elpidio Espinoza MD [STAFF PHYSICIAN] - 1-2 days Time of Disposition: 18:55
[2019-07-09 21:08] VITALS: BP 112/75; PULSE 107; RESP 16; TEMP 98
== END 2019-07-09 19:05 | disposition home or self-care (01) ==
LOC: EC 18:18
DX: R21 Rash and other nonspecific skin eruption (principal); E11.43 Type 2 diabetes mellitus with diabetic autonomic (poly)neuropathy; K31.84 Gastroparesis; F32.9 Major depressive disorder, single episode, unspecified; Z79.4 Long term (current) use of insulin; Z79.899 Other long term (current) drug therapy
CPT/HCPCS: 99282

== ENCOUNTER 2019-07-15 15:35 | Inpatient (IN) | payer OTHER ==
[2019-07-15] MEDS ORDERED: SODIUM CHLORIDE 0.9% 500 ML 500 ML IV ONE (15:41)
[2019-07-15] MEDS ORDERED: SODIUM CHLORIDE 0.9% 1,000 ML IV ONE (15:41)
[2019-07-15] MEDS: SODIUM CHLORIDE 0.9% 1,000 ML IV SCH ×2 (16:00→18:43)
[2019-07-15 16:03] LABS: Basophils # (A) 0.1 k/uL (0-0.2); Basophils % (A) 1 %; Eosinophils # (A) 0.3 k/uL (0-0.7); Eosinophils % (A) 1 %; HCT 53.5 % (39.0-53.0); HGB 18.3 gm/dL (13.0-17.5); Lymphocytes # (A) 1.8 k/uL (1.0-4.8); Lymphocytes % (A) 7 %; MCH 30.7 pg (25.0-35.0); MCHC 34.2 g/dL (31.0-37.0); MCV 89.9 fL (80.0-100.0); Mean Platelet Volume 7.2; Monocytes # (A) 0.7 k/uL (0-1.0); Monocytes % (A) 3 %; Neutrophils # (A) 21.8 k/uL (1.3-7.7); Neutrophils % (A) 88 %; Platelet Count 400 k/uL (150-450); RBC 5.95 m/uL (4.30-5.90); RDW 12.4 % (11.5-15.5); WBC 24.8 k/uL (3.8-10.6)
[2019-07-15 16:12] LABS: Glucose,Whole Blood 377 mg/dL (75-99)
[2019-07-15 16:12] LABS: ALT 23 U/L (4-49); AST 24 U/L (17-59); African American GFR (CKD) >90 (>60 ml/min/1.73 sqM); Albumin 5.2 g/dL (3.5-5.0); Alkaline Phosphatase 144 U/L (38-126); Anion Gap 31 mmol/L; Blood Urea Nitrogen 21 mg/dL (9-20); Calcium 9.9 mg/dL (8.4-10.2); Carbon Dioxide 12 mmol/L (22-30); Chloride 97 mmol/L (98-107); Glucose 430 mg/dL (74-99); Magnesium 1.9 mg/dL (1.6-2.3); Non-African American GFR(CKD) >90 (>60 ml/min/1.73 sqM); Phosphorus 6.2 mg/dL (2.5-4.5); Potassium 4.9 mmol/L (3.5-5.1); Sodium 140 mmol/L (137-145); Total Bilirubin 0.7 mg/dL (0.2-1.3); Total Protein 8.7 g/dL (6.3-8.2)
--- NOTE | 2019-07-15 16:21 | ED ---
Nausea/Vomiting/Diarrhea HPI - General Chief complaint: Nausea/Vomiting/Diarrhea Stated complaint: flu like symptoms Time Seen by Provider: 07/15/19 15:37 Source: patient Mode of arrival: EMS Limitations: no limitations - History of Present Illness Initial comments: 23-year-old male presenting today for chief complaint of nausea vomiting times one day. Patient states she has had nausea vomiting for the past day states it feels like when he said DKA in the past. Patient denies fever cough congestion. He admits to chills. Patient states he currently is homeless. Patient denies any chest pain he does admit to shortness of breath. Patient denies any leg swelling'. Patient denies cough, dysuria urgency frequency. Remaining review of systems negative upon arrival patient appears unwell, however is AAOx3 in no acute distress. HR elevated, BP stable. - Related Data Home Medications Medication Instructions Recorded Confirmed Gabapentin [Neurontin] 300 mg PO QAM 05/11/19 07/06/19 Gabapentin [Neurontin] 600 mg PO HS 05/11/19 07/06/19 traZODone HCL [Desyrel] 300 mg PO HS 06/16/19 07/06/19 Insulin Glargine,Hum.rec.anlog 28 unit SQ HS 07/06/19 07/06/19 [Basaglar Kwikpen U-100] Insulin Lispro [Admelog] 10 units SQ ACHS 07/06/19 07/06/19 Previous Rx's Medication Instructions Recorded Cephalexin [Keflex] 500 mg PO Q6HR 7 Days #28 cap 07/09/19 Triamcinolone 0.1% Cream [Kenalog 1 applic TOPICAL QID 7 Days #30 g 07/09/19 0.1% Cream] Allergies Allergy/AdvReac Type Severity Reaction Status Date / Time No Known Allergies Allergy Verified 07/09/19 18:19 Review of Systems ROS Statement: Those systems with pertinent positive or pertinent negative responses have been documented in the HPI. ROS Other: All systems not noted in ROS Statement are negative. Past Medical History Past Medical History: Asthma, Diabetes Mellitus, Skin Disorder Additional Past Medical History / Comment(s): , insulin dependent diabetes oral apraxia; previous suicidal attempts anxiety/depression, previous hospital physicians for DKA,gastroparesis. History of Any Multi-Drug Resistant Organisms: None Reported Past Surgical History: Adenoidectomy Additional Past Surgical History / Comment(s): 2002 Past Anesthesia/Blood Transfusion Reactions: No Reported Reaction Past Psychological History: Anxiety, Depression Smoking Status: Never smoker Past Alcohol Use History: None Reported Past Drug Use History: None Reported - Past Family History Mother Family Medical History: CVA/TIA Father Family Medical History: Hyperlipidemia, Hypertension Additional Family Medical History / Comment(s): . General Exam - General Exam Comments Initial Comments: General: The patient is awake and alert Eye: +3 mm pupils are equal, round and reactive to light, extra-ocular movements are intact. No nystagmus. There is normal conjunctiva bilaterally. No signs of icterus. Ears, nose, mouth and throat: There are dry mucous membranes and no oral lesions. Neck: The neck is supple, there is no tenderness or JVD. Cardiovascular: There is a regular rate and rhythm. No murmur, rub or gallop is appreciated. Respiratory: Lungs are clear to auscultation, respirations are non-labored, breath sounds are equal. No wheezes, stridor, rales, or rhonchi. Gastrointestinal: Soft, non-distended, diffusely tender abdomen without masses or organomegaly noted. There is no rebound or guarding present. Musculoskeletal: Normal ROM, no tenderness. Strength 5/5. Sensation intact. Radial pulses equal bilaterally 2+. Neurological: A&O x 3. CN II-XII intact, There are no obvious motor or sensory deficits. Coordination appears grossly intact. Speech is normal. Skin: Skin is warm and dry, no lesions are noted. Psychiatric: Cooperative, appropriate mood & affect, normal judgment. Limitations: no limitations Course Vital Signs 07/15/19 07/15/19 15:37 18:07 Temperature 96.8 F L 97.2 F L Pulse Rate 120 H 118 H Respiratory 18 18 Rate Blood Pressure 117/85 112/70 O2 Sat by Pulse 99 98 Oximetry Medical Decision Making - Medical Decision Making 23-year-old male presenting for vomiting. Patient found to have significant anion gap at 31. As well as acidotic of DVT. Patient has ketones and glucose in the urine. Patient is placed on insulin drip per DKA protocol was. Patient was given IV fluids CT revealed no acute process the abdomen despite diffuse pain most likely secondary to DKA. Patient chest x-ray clear of infiltrates. Patient appears severely dehydrated given laboratory studies such as elevated HgB. Discussed case and reviewed laboratory studies mentating provider Dr. Gregorio who is agreeable to admission at this time. Patient remained to hold the emergency department will be transferred to the floor when bed is available however for further care management was provided by admitting provider. Which was accepted by Dr. Valenzuela - Lab Data Result diagrams: 07/15/19 15:54 07/15/19 20:00 Lab Results 07/15/19 07/15/19 07/15/19 Range/Units 15:54 15:54 15:54 WBC 24.8 H (3.8-10.6) k/uL RBC 5.95 H (4.30-5.90) m/uL Hgb 18.3 H (13.0-17.5) gm/dL Hct 53.5 H (39.0-53.0) % MCV 89.9 (80.0-100.0) fL MCH 30.7 (25.0-35.0) pg MCHC 34.2 (31.0-37.0) g/dL RDW 12.4 (11.5-15.5) % Plt Count 400 (150-450) k/uL Neutrophils % 88 % Lymphocytes % 7 % Monocytes % 3 % Eosinophils % 1 % Basophils % 1 % Neutrophils # 21.8 H (1.3-7.7) k/uL Lymphocytes # 1.8 (1.0-4.8) k/uL Monocytes # 0.7 (0-1.0) k/uL Eosinophils # 0.3 (0-0.7) k/uL Basophils # 0.1 (0-0.2) k/uL VBG pH (7.31-7.41) VBG pCO2 (37-51) mmHg VBG HCO3 (24-28) mmol/L Sodium 140 (137-145) mmol/L Potassium 4.9 (3.5-5.1) mmol/L Chloride 97 L (98-107) mmol/L Carbon Dioxide 12 L (22-30) mmol/L Anion Gap 31 mmol/L BUN 21 H (9-20) mg/dL Creatinine 0.75 (0.66-1.25) mg/dL Est GFR (CKD-EPI)AfAm >90 (>60 ml/min/1.73 sqM) Est GFR (CKD-EPI)NonAf >90 (>60 ml/min/1.73 sqM) Glucose 430 H (74-99) mg/dL POC Glucose (mg/dL) (75-99) mg/dL POC Glu St[employer] Tender ID Calcium 9.9 (8.4-10.2) mg/dL Phosphorus 6.2 H (2.5-4.5) mg/dL Magnesium 1.9 (1.6-2.3) mg/dL Total Bilirubin 0.7 (0.2-1.3) mg/dL AST 24 (17-59) U/L ALT 23 (4-49) U/L Alkaline Phosphatase 144 H (38-126) U/L Troponin I (0.000-0.034) ng/mL Total Protein 8.7 H (6.3-8.2) g/dL Albumin 5.2 H (3.5-5.0) g/dL Lipase 16 L (23-300) U/L Acetone, Qual Positive (Negative) Influenza Type A RNA Not Detected (Not Detectd) Influenza Type B (PCR) Not Detected (Not Detectd) 07/15/19 07/15/19 07/15/19 Range/Units 16:05 16:36 16:50 WBC (3.8-10.6) k/uL RBC (4.30-5.90) m/uL Hgb (13.0-17.5) gm/dL Hct (39.0-53.0) % MCV (80.0-100.0) fL MCH (25.0-35.0) pg MCHC (31.0-37.0) g/dL RDW (11.5-15.5) % Plt Count (150-450) k/uL Neutrophils % % Lymphocytes % % Monocytes % % Eosinophils % % Basophils % % Neutrophils # (1.3-7.7) k/uL Lymphocytes # (1.0-4.8) k/uL Monocytes # (0-1.0) k/uL Eosinophils # (0-0.7) k/uL Basophils # (0-0.2) k/uL VBG pH 7.22 L (7.31-7.41) VBG pCO2 36 L (37-51) mmHg VBG HCO3 14 L (24-28) mmol/L Sodium (137-145) mmol/L Potassium (3.5-5.1) mmol/L Chloride (98-107) mmol/L Carbon Dioxide (22-30) mmol/L Anion Gap mmol/L BUN (9-20) mg/dL Creatinine (0.66-1.25) mg/dL Est GFR (CKD-EPI)AfAm (>60 ml/min/1.73 sqM) Est GFR (CKD-EPI)NonAf (>60 ml/min/1.73 sqM) Glucose (74-99) mg/dL POC Glucose (mg/dL) 377 H (75-99) mg/dL POC Glu St[employer] Machine Tender ID Brenda Cordova Calcium (8.4-10.2) mg/dL Phosphorus (2.5-4.5) mg/dL Magnesium (1.6-2.3) mg/dL Total Bilirubin (0.2-1.3) mg/dL AST (17-59) U/L ALT (4-49) U/L Alkaline Phosphatase (38-126) U/L Troponin I <0.012 (0.000-0.034) ng/mL Total Protein (6.3-8.2) g/dL Albumin (3.5-5.0) g/dL Lipase (23-300) U/L Acetone, Qual (Negative) Influenza Type A RNA (Not Detectd) Influenza Type B (PCR) (Not Detectd) Disposition Clinical Impression: Vomiting, Acidosis, Abdominal pain, DKA (diabetic ketoacidoses), Dehydration Disposition: ADMITTED IP TO THIS HOSP Condition: Serious Is patient prescribed a controlled substance at d/c from ED?: No Time of Disposition: 18:01
--- NOTE | 2019-07-15 16:22 | XR ---
EXAMINATION TYPE: XR chest 2V DATE OF EXAM: 07/15/2019 COMPARISON: 07/05/2019 INDICATION: Flulike symptoms nausea vomiting TECHNIQUE: Frontal and lateral views of the chest are obtained. FINDINGS: The heart size is normal. The pulmonary vasculature is normal. The lungs are clear. IMPRESSION: 1. No acute pulmonary process.
[2019-07-15] MEDS ORDERED: ONDANSETRON 4 MG/2 ML VIAL IVP STA (16:44)
[2019-07-15 17:33] LABS: VBG PH 7.22 (7.31-7.41)
[2019-07-15] MEDS ORDERED: INSULIN REGULAR 100 UNIT/ML VIAL IV ONE (17:38)
--- NOTE | 2019-07-15 17:43 | CT ---
EXAMINATION TYPE: CT abdomen pelvis w con DATE OF EXAM: 07/15/2019 COMPARISON: 06/09/2015 HISTORY: Pain and vomiting, nonlocalized, leukocytosis CT DLP: 536.8 mGycm Automated exposure control for dose reduction was used. TECHNIQUE: Helical acquisition of images was performed from the lung bases through the pelvis. CONTRAST: 100 mL of Isovue 300. FINDINGS: LUNG BASES: No significant abnormality is appreciated. LIVER/GB: No significant abnormality is appreciated. PANCREAS: No significant abnormality is seen. SPLEEN: No significant abnormality is seen. ADRENALS: No significant abnormality is seen. KIDNEYS: No significant abnormality is seen. FREE AIR: No free air is visualized. RETROPERITONEAL ADENOPATHY: None visualized REPRODUCTIVE ORGANS: No significant abnormality is seen URINARY BLADDER: Nonspecific mild/moderate urinary bladder distention noted. No focal findings. PELVIC ADENOPATHY: There are a few scattered subcentimeter short axis lymph nodes in the obturator p osition bilaterally, but no carly adenopathy. OSSEOUS STRUCTURES: No significant abnormality is seen. BOWEL: The stomach and duodenum are unremarkable. The jejunum demonstrates a nonspecific pattern of diffuse mild fluid distention, without bowel dilation. The ileum is fluid-filled but not distended. T he colon is unremarkable. OTHER: No acute vascular findings. IMPRESSION: No definite acute process; nonspecific scattered findings.
[2019-07-15 17:52] LABS: Glucose,Whole Blood 326 mg/dL (75-99)
[2019-07-15] MEDS ORDERED: POTASSIUM CHLORIDE ER 20 MEQ TAB.ER PO STA (18:04)
[2019-07-15] MEDS: INSULIN REGULAR 100 UNIT in SODIUM CHLORIDE 0.9% 100 ML IV SCH (18:45)
[2019-07-15 19:04] LABS: Appearance,Urine Clear (Clear); Bilirubin,Urine Negative (Negative); Blood,Urine Negative (Negative); Color,Urine Light Yellow; Glucose,Urine (UA) 4+ (Negative); Leukocyte Esterase,Urine Negative (Negative); Nitrite,Urine Negative (Negative); PH, Urine 5.5 (5.0-8.0); Protein,Urine Trace (Negative); Urobilinogen,Urine <2.0 mg/dL (<2.0)
[2019-07-15 19:08] LABS: Specific Gravity,Urine 1.049 (1.001-1.035)
[2019-07-15 19:12] LABS: Ketones,Urine 4+ (Negative)
[2019-07-15 19:17] LABS: Glucose,Whole Blood 298 mg/dL (75-99)
[2019-07-15 20:20] LABS: African American GFR (CKD) >90 (>60 ml/min/1.73 sqM); Anion Gap 20 mmol/L; Blood Urea Nitrogen 21 mg/dL (9-20); Carbon Dioxide 14 mmol/L (22-30); Chloride 107 mmol/L (98-107); Glucose 306 mg/dL (74-99); Non-African American GFR(CKD) >90 (>60 ml/min/1.73 sqM); Phosphorus 4.2 mg/dL (2.5-4.5); Potassium 4.5 mmol/L (3.5-5.1); Sodium 141 mmol/L (137-145)
[2019-07-15] MEDS: D5-0.45% NACL WITH KCL 20MEQ/L 1,000 ML IV SCH (20:31)
[2019-07-15 20:32] LABS: Glucose,Whole Blood 245 mg/dL (75-99)
[2019-07-15 21:24] LABS: Glucose,Whole Blood 259 mg/dL (75-99)
[2019-07-15 22:10] LABS: Glucose,Whole Blood 262 mg/dL (75-99)
[2019-07-15 23:13] LABS: Glucose,Whole Blood 203 mg/dL (75-99)
[2019-07-16 00:07] LABS: Glucose,Whole Blood 133 mg/dL (75-99)
[2019-07-16 01:05] LABS: Glucose,Whole Blood 109 mg/dL (75-99)
[2019-07-16] MEDS: INSULIN REGULAR 100 UNIT in SODIUM CHLORIDE 0.9% 100 ML IV SCH (01:17)
[2019-07-16 01:26] LABS: African American GFR (CKD) >90 (>60 ml/min/1.73 sqM); Anion Gap 12 mmol/L; Blood Urea Nitrogen 21 mg/dL (9-20); Carbon Dioxide 25 mmol/L (22-30); Chloride 99 mmol/L (98-107); Glucose 96 mg/dL (74-99); Non-African American GFR(CKD) >90 (>60 ml/min/1.73 sqM); Phosphorus 2.7 mg/dL (2.5-4.5); Potassium 4.1 mmol/L (3.5-5.1); Sodium 136 mmol/L (137-145)
[2019-07-16 02:08] LABS: Glucose,Whole Blood 82 mg/dL (75-99)
[2019-07-16 02:49] LABS: Glucose,Whole Blood 129 mg/dL (75-99)
[2019-07-16 03:49] LABS: Glucose,Whole Blood 164 mg/dL (75-99)
[2019-07-16 04:38] LABS: Glucose,Whole Blood 172 mg/dL (75-99)
[2019-07-16 05:03] LABS: Glucose,Whole Blood 170 mg/dL (75-99)
[2019-07-16 05:12] LABS: African American GFR (CKD) >90 (>60 ml/min/1.73 sqM); Anion Gap 10 mmol/L; Blood Urea Nitrogen 18 mg/dL (9-20); Carbon Dioxide 22 mmol/L (22-30); Chloride 99 mmol/L (98-107); Glucose 155 mg/dL (74-99); Non-African American GFR(CKD) >90 (>60 ml/min/1.73 sqM); Phosphorus 2.8 mg/dL (2.5-4.5); Potassium 4.1 mmol/L (3.5-5.1); Sodium 131 mmol/L (137-145)
[2019-07-16 06:01] LABS: Glucose,Whole Blood 156 mg/dL (75-99)
[2019-07-16] MEDS: D5-0.45% NACL WITH KCL 20MEQ/L 1,000 ML IV SCH ×2 (06:57→08:33)
[2019-07-16] MEDS: SODIUM CHLORIDE 0.9% 1,000 ML IV SCH ×3 (06:57→08:33)
[2019-07-16 07:02] LABS: Glucose,Whole Blood 166 mg/dL (75-99)
[2019-07-16] MEDS: INSULIN ASPART (NovoLOG) 100 UNIT/ML VIAL SQ SCH ×3 (08:31→17:49)
[2019-07-16 08:38] LABS: Glucose,Whole Blood 209 mg/dL (75-99)
--- NOTE | 2019-07-16 11:13 | HP ---
HISTORY AND PHYSICAL CHIEF COMPLAINT: DKA. HISTORY OF PRESENT ILLNESS: This is another admission for this 23-year-old noncompliant type 1 juvenile onset diabetic. He stopped his insulin again. He came into the emergency room in DKA. He does this frequently. He is apparently homeless at this time. REVIEW OF SYSTEMS: He denies confusion, change in vision or hearing, chest pain, shortness of breath, abdominal pain, nausea, vomiting, hematemesis, melena, hematochezia, jaundice, renal failure, dysuria, frequency, urgency and hematuria, etc. Past medical history, family history and personal and social histories are all otherwise unremarkable and noncontributory. It is never known what he is taking and he has not been on his insulin. PHYSICAL EXAMINATION: Blood pressure is 98/60 with a pulse of 110, respirations of 38. He is afebrile. In general, he appeared to be slender in no acute distress. Skin was dry. Mucous membranes are dry. Head, ears, eyes, nose, mouth, and throat were otherwise normal. Chest is clear. Cardiac exam demonstrates sinus tachycardia. Abdomen is flat, soft, nontender. Extremities: Normal. Neurologically, he is intact. His eczema seemed to be slightly improved over what it usually. IMPRESSION: 1. Diabetic ketoacidosis. 2. Eczema. 3. Depression. 4. Homelessness. PLAN: 1. Treat DKA. 2. Resume his usual insulin program and probably home later today or tomorrow. MMSHANEL / TRAMN: [id number] /
[2019-07-16 12:06] LABS: Glucose,Whole Blood 273 mg/dL (75-99)
[2019-07-16] MEDS: TRIAMCINOLONE 0.1% CREAM 80 GM TUBE TOPICAL PRN (12:29)
[2019-07-16] MEDS: GABAPENTIN 300 MG CAP PO SCH (12:29)
[2019-07-16] MEDS ORDERED: INSULIN LISPRO (For Pump) 100 UNIT/ML VIAL SQ-PUMP SCH (12:30)
[2019-07-16 12:56] LABS: African American GFR (CKD) >90 (>60 ml/min/1.73 sqM); Anion Gap 10 mmol/L; Blood Urea Nitrogen 16 mg/dL (9-20); Carbon Dioxide 23 mmol/L (22-30); Chloride 98 mmol/L (98-107); Non-African American GFR(CKD) >90 (>60 ml/min/1.73 sqM); Phosphorus 2.5 mg/dL (2.5-4.5); Potassium 3.8 mmol/L (3.5-5.1); Sodium 131 mmol/L (137-145)
[2019-07-16 15:24] VITALS: BMI 17.6
[2019-07-16 17:02] LABS: Glucose,Whole Blood 443 mg/dL (75-99)
[2019-07-16] MEDS ORDERED: INSULIN ASPART (NovoLOG) 100 UNIT/ML VIAL SQ ONE (18:34)
--- NOTE | 2019-07-16 19:34 | PN ---
PROGRESS NOTE CHIEF COMPLAINT: DKA. HISTORY OF PRESENT ILLNESS: This gentleman's blood sugar dropped down this morning and acid-base balance was restored. Later in the day, his blood sugar shot up over 400 and his discharge was canceled. He will be kept in the hospital and his Lantus will be increased to 50 and his NovoLog to 15 units before meals. PHYSICAL EXAMINATION: Chest is clear. Cardiac exam is normal. Abdomen is soft, nontender. IMPRESSION: 1. Diabetic ketoacidosis. 2. Dehydration. 3. Eczema. 4. Depression. PLAN: Increase insulin and control blood sugars before he is discharged again. MMODL / IJN: [id number] /
[2019-07-16 20:25] LABS: Glucose,Whole Blood 222 mg/dL (75-99)
[2019-07-16] MEDS ORDERED: INSULIN GLARGINE HUM REC ANLOG 28 UNIT SQ SCH (21:00)
[2019-07-16] MEDS ORDERED: INSULIN DETEMIR (LEVEMIR) 100 UNIT/ML SYR SQ SCH ×2 (21:00)
[2019-07-16] MEDS ORDERED: GABAPENTIN 300 MG CAP PO SCH (21:00)
[2019-07-16] MEDS ORDERED: traZODone HCL 100 MG TAB PO SCH (21:15)
[2019-07-17 01:18] LABS: African American GFR (CKD) >90 (>60 ml/min/1.73 sqM); Anion Gap 6 mmol/L; Blood Urea Nitrogen 18 mg/dL (9-20); Carbon Dioxide 29 mmol/L (22-30); Chloride 102 mmol/L (98-107); Non-African American GFR(CKD) >90 (>60 ml/min/1.73 sqM); Potassium 3.7 mmol/L (3.5-5.1); Sodium 137 mmol/L (137-145)
[2019-07-17 07:13] LABS: Glucose,Whole Blood 131 mg/dL (75-99)
[2019-07-17] MEDS: INSULIN ASPART (NovoLOG) 100 UNIT/ML VIAL SQ SCH ×2 (07:53→11:59)
[2019-07-17] MEDS: GABAPENTIN 300 MG CAP PO SCH (07:54)
[2019-07-17 07:58] VITALS: RESP 16
[2019-07-17 08:01] LABS: African American GFR (CKD) >90 (>60 ml/min/1.73 sqM); Anion Gap 7 mmol/L; Blood Urea Nitrogen 18 mg/dL (9-20); Carbon Dioxide 30 mmol/L (22-30); Chloride 102 mmol/L (98-107); Non-African American GFR(CKD) >90 (>60 ml/min/1.73 sqM); Potassium 3.6 mmol/L (3.5-5.1); Sodium 139 mmol/L (137-145)
[2019-07-17 11:36] LABS: Glucose,Whole Blood 114 mg/dL (75-99)
[2019-07-17] MEDS: TRIAMCINOLONE 0.1% CREAM 80 GM TUBE TOPICAL PRN (12:01)
[2019-07-17 15:43] VITALS: BP 105/68; PULSE 92; TEMP 97.8
--- NOTE | 2019-07-17 17:22 | DS ---
DISCHARGE SUMMARY CHIEF COMPLAINT: DKA. HISTORY OF PRESENT ILLNESS AND PHYSICAL EXAMINATION: Details of this man's history and physical can be found in the initial workup. COURSE IN THE HOSPITAL: After admission he was placed on bedrest and started on intravenous fluids and his acid- base balance and his ketoacidosis were corrected overnight. Sugars have bounced around and remained high and his long-acting and short-acting insulins were increased. Blood sugar is doing well. He is anxious to be discharged. On 07/17/19 he will go home on 50 units of Basaglar and 15 units Admelog before meals. He was told to come into the office in a day or two. FINAL DIAGNOSES: 1. Diabetic ketoacidosis. 2. Uncontrolled type 1 insulin-dependent diabetes mellitus. 3. Noncompliance. 4. Homelessness. 5. Depression. OPERATIONS: None. CONSULTATIONS: None. He is improved. GRACE / ALDEN: [id number] /
[2019-07-17 20:26] LABS: Hemoglobin A1C 11.5 % (4.0-6.0)
== END 2019-07-17 16:01 | disposition home or self-care (01) | DRG 639 ==
LOC: EC 15:35 → 3SCARD 17:26 → 4SSUR 07-16 21:53
PROVIDERS: ADMIT Family Medicine; ATTEND Family Medicine
DX: E10.10 Type 1 diabetes mellitus with ketoacidosis without coma (principal); E10.43 Type 1 diabetes mellitus with diabetic autonomic (poly)neuropathy; E86.0 Dehydration; F32.9 Major depressive disorder, single episode, unspecified; J45.909 Unspecified asthma, uncomplicated; F41.9 Anxiety disorder, unspecified; K31.84 Gastroparesis; L30.9 Dermatitis, unspecified; Z59.0 Homelessness; Z79.4 Long term (current) use of insulin; Z82.49 Family history of ischemic heart disease and other diseases of the circulatory system; Z91.19 Patient's noncompliance with other medical treatment and regimen; Z90.89 Acquired absence of other organs; Z83.438 Family history of other disorder of lipoprotein metabolism and other lipidemia
CPT/HCPCS: 36415; 71046; 74177; 80051; 80053; 81003; 82009; 82565; 82803; 82947; 83036; 83690; 83735; 84100; 84484; 84520; 85025; 87502; 93005; 96361; 96374; 99285

== ENCOUNTER 2019-07-18 19:35 | Inpatient (IN) | payer MEDICAID, OTHER ==
[2019-07-18 19:48] LABS: Glucose,Whole Blood 455 mg/dL (75-99)
[2019-07-18 20:25] LABS: HCT 44.4 % (39.0-53.0); MCH 30.5 pg (25.0-35.0); MCV 89.7 fL (80.0-100.0); Platelet Count 299 k/uL (150-450); RBC 4.95 m/uL (4.30-5.90); RDW 12.6 % (11.5-15.5); WBC 13.8 k/uL (3.8-10.6)
[2019-07-18 20:28] LABS: ALT 26 U/L (4-49); AST 27 U/L (17-59); African American GFR (CKD) >90 (>60 ml/min/1.73 sqM); Albumin 3.9 g/dL (3.5-5.0); Alkaline Phosphatase 104 U/L (38-126); Anion Gap 6 mmol/L; Blood Urea Nitrogen 13 mg/dL (9-20); Carbon Dioxide 30 mmol/L (22-30); Chloride 96 mmol/L (98-107); Glucose 444 mg/dL (74-99); HGB 15.1 gm/dL (13.0-17.5); Non-African American GFR(CKD) >90 (>60 ml/min/1.73 sqM); Potassium 4.5 mmol/L (3.5-5.1); Sodium 132 mmol/L (137-145); Total Bilirubin 0.5 mg/dL (0.2-1.3); Total Protein 6.6 g/dL (6.3-8.2)
[2019-07-18 20:45] LABS: Eosinophils # (M) 4.14 k/uL (0-0.7); Monocytes # (M) 0.69 k/uL (0-1.0); Neutrophils # (M) 6.07 k/uL (1.3-7.7); Neutrophils % (M) 44 %; Nucleated Red Blood Cells 0 /100 WBC (0-0); Total Cells Counted 100
[2019-07-18] MEDS ORDERED: SODIUM CHLORIDE 0.9% 1,000 ML IV ONE (20:46)
[2019-07-18] MEDS ORDERED: INSULIN ASPART (NovoLOG) 100 UNIT/ML VIAL SQ ONE (20:46)
--- NOTE | 2019-07-18 21:48 | ED ---
General Adult HPI - General Source: patient, RN notes reviewed, old records reviewed Mode of arrival: ambulatory Limitations: no limitations <Azar Self - Last Filed: 07/19/19 02:07> <Deana Shin - Last Filed: 07/19/19 22:47> - General Chief complaint: Psychiatric Symptoms Stated complaint: Mental Health Time Seen by Provider: 07/18/19 19:47 - History of Present Illness Initial comments: 23-year-old male patient passed history of type 1 diabetes presents to ED for chief complaint of suicidal ideations. Patient reports that he was in denominational today and began to feel bad about himself in regards to his grandmother years ago. Reports he thought about going into the bathroom and give himself a large dose of insulin to make himself become hypoglycemic and . Denies any actions to himself. Denies any ideations of hernia the pupil. Denies any other complaints. Systemic: Pt denies fatigue, fever/chills, rash. Pt denies weakness, night sweats, weight loss. Neuro: Pt denies headache, visual disturbances, syncope or pre-syncope. HEENT: Pt denies ocular discharge or irritation, otalgia, rhinorrhea, pharyngitis or notable lymphadenopathy. Cardiopulmonary: Pt denies chest pain, SOB, heart palpitations, dyspnea on exertion. Abdominal/GI: Pt denies abdominal pain, n/v/d. : Pt denies dysuria, burning w/ urination, frequency/urgency. Denies new onset urinary or bowel incontinence. MSK: Pt denies myalgia, loss of strength or function in extremities. Neuro: Pt denies new onset weakness, paresthesias. (Azar Self) - Related Data Home Medications Medication Instructions Recorded Confirmed Gabapentin [Neurontin] 300 mg PO QAM 05/11/19 07/15/19 Gabapentin [Neurontin] 600 mg PO HS 05/11/19 07/15/19 traZODone HCL [Desyrel] 300 mg PO HS 06/16/19 07/15/19 Triamcinolone 0.1% Cream [Kenalog 1 applic TOPICAL QID PRN 07/15/19 07/15/19 0.1% Cream] Previous Rx's Medication Instructions Recorded Insulin Glargine,Hum.rec.anlog 50 unit SQ HS #1 pen 07/17/19 [Basaglar Kwikpen U-100] Insulin Lispro [Admelog] 15 units SQ AC-TID #1 vial 07/17/19 Allergies Allergy/AdvReac Type Severity Reaction Status Date / Time No Known Allergies Allergy Verified 07/18/19 19:46 Review of Systems ROS Other: All systems not noted in ROS Statement are negative. <Azar Self - Last Filed: 07/19/19 02:07> ROS Other: All systems not noted in ROS Statement are negative. <Deana Shin - Last Filed: 07/19/19 22:47> ROS Statement: Those systems with pertinent positive or pertinent negative responses have been documented in the HPI. Past Medical History Past Medical History: Asthma, Diabetes Mellitus, Skin Disorder Additional Past Medical History / Comment(s): , insulin dependent diabetes oral apraxia; previous suicidal attempts anxiety/depression, previous hospital physicians for DKA,gastroparesis. History of Any Multi-Drug Resistant Organisms: None Reported Past Surgical History: Adenoidectomy Additional Past Surgical History / Comment(s): 2002 Past Anesthesia/Blood Transfusion Reactions: No Reported Reaction Past Psychological History: Anxiety, Depression Smoking Status: Never smoker Past Alcohol Use History: None Reported Past Drug Use History: None Reported - Past Family History Mother Family Medical History: CVA/TIA Father Family Medical History: Hyperlipidemia, Hypertension Additional Family Medical History / Comment(s): . <Azar Self - Last Filed: 07/19/19 02:07> General Exam Limitations: no limitations <Azar Self - Last Filed: 07/19/19 02:07> - General Exam Comments Initial Comments: Constitutional: NAD, AOX3, Pt has pleasant affect. HEENT: NC/AT, trachea midline, neck supple, no lymphadenopathy. Posterior pharynx non erythematous, without exudates. External ears appear normal, without discharge. Mucous membranes moist. Eyes PERRLA, EOM intact. There is no scleral icterus. No pallor noted. Cardiopulmonary: RRR, no murmurs, rubs or gallops, no JVD noted. Lungs CTAB in anterior and posterior brady. No peripheral edema. Abdominal exam: Abdomen soft and non-distended. Abdomen non-tender to palpation in all 4 quadrants. Bowel sounds active in LLQ. No hepatosplenomegaly. No ecchymosis Neuro: CN II-XII grossly intact. No nuchal rigidity. No raccon eyes, no barrett sign, no hemotympanum. No cervical spinal tenderness. MSK: No posterior calf tenderness bilaterally, homans sign negative bilaterally. Posterior tibialis and radial pulse +2 bilaterally. Sensation intact in upper and lower extremities. Full active ROM in upper and lower extremities, 5/5 stregnth. : Left inguinal small left inguinal cyst, nontender, no skin changes, mobile, rubbery. No testicular tenderness, no skin changes, no blue dot sign, creamesteric reflex intact. (Azar Self) Course Vital Signs 07/18/19 07/19/19 07/19/19 19:38 00:43 04:44 Temperature 97.9 F 97.7 F Pulse Rate 95 113 H 106 H Respiratory 16 16 15 Rate Blood Pressure 131/97 122/53 120/76 O2 Sat by Pulse 99 97 98 Oximetry Medical Decision Making - Lab Data Result diagrams: 07/18/19 19:55 07/18/19 19:55 <Azar Self - Last Filed: 07/19/19 02:07> - Lab Data Result diagrams: 07/19/19 08:36 07/19/19 08:33 <Deana Shin - Last Filed: 07/19/19 22:47> - Medical Decision Making 23-year-old male patient passed history of type 1 diabetes presents to ED for chief complaint of suicidal ideations. Patient reports that he was in denominational today and began to feel bad about himself in regards to his grandmother years ago. Reports he thought about going into the bathroom and give himself a large dose of insulin to make himself become hypoglycemic and . Denies any actions to himself. Denies any ideations of hernia the pupil. Denies any other complaints. Patient will send a stable, afebrile. Physical exam test acute pathology. Patient also requested to evaluate his inguinal region reportedly had a bump that he noticed today. This does appear to be a small left inguinal cyst, nontender, no skin changes, mobile, rubbery. Left investigations were obtained, these did reveal mild leukocytosis 13.8, hyperglycemia 444, patient was administered fluids, a few NovoLog. Blood sugar came down, patient did become hypoglycemic was administered an amp of dextrose. Currently in the low 100s. Pt evaluated by EPS and recommended for admission. case discussed with Dr. Shin . (Azar Self) The patient was signed out to me. He has had recurrent episodes of hypoglycemia. The patient denies overdosing himself on insulin. He did take his basal insulin before coming into the emergency department. Here he was subsequently given a liter bolus of normal saline and NovoLog. The patient had not eaten. He was given 2 amp of dextrose prior to being signed out to me. The patient did have 3 Accu-Chek performed after he was given the dextrose in addition to fluids. His sugar remained stable in the patient was awaiting chandler sfer to the psychiatric floor (Deana Shin) - Lab Data Lab Results 07/18/19 07/18/19 07/18/19 Range/Units 19:47 19:55 19:55 WBC 13.8 H (3.8-10.6) k/uL RBC 4.95 (4.30-5.90) m/uL Hgb 15.1 D (13.0-17.5) gm/dL Hct 44.4 (39.0-53.0) % MCV 89.7 (80.0-100.0) fL MCH 30.5 (25.0-35.0) pg MCHC 34.0 (31.0-37.0) g/dL RDW 12.6 (11.5-15.5) % Plt Count 299 (150-450) k/uL Neutrophils % (Manual) 44 % Lymphocytes % (Manual) 21 % Monocytes % (Manual) 5 % Eosinophils % (Manual) 30 % Neutrophils # (Manual) 6.07 (1.3-7.7) k/uL Lymphocytes # (Manual) 2.90 (1.0-4.8) k/uL Monocytes # (Manual) 0.69 (0-1.0) k/uL Eosinophils # (Manual) 4.14 H (0-0.7) k/uL Nucleated RBCs 0 (0-0) /100 WBC Manual Slide Review Performed RBC Morphology Normal Sodium 132 L (137-145) mmol/L Potassium 4.5 (3.5-5.1) mmol/L Chloride 96 L (98-107) mmol/L Carbon Dioxide 30 (22-30) mmol/L Anion Gap 6 mmol/L BUN 13 (9-20) mg/dL Creatinine 0.47 L (0.66-1.25) mg/dL Est GFR (CKD-EPI)AfAm >90 (>60 ml/min/1.73 sqM) Est GFR (CKD-EPI)NonAf >90 (>60 ml/min/1.73 sqM) Glucose 444 H (74-99) mg/dL POC Glucose (mg/dL) 455 H (75-99) mg/dL POC Glu Glass [employer] Feeder ID Amita Torres Calcium 9.0 (8.4-10.2) mg/dL Total Bilirubin 0.5 (0.2-1.3) mg/dL AST 27 (17-59) U/L ALT 26 (4-49) U/L Alkaline Phosphatase 104 (38-126) U/L Total Protein 6.6 (6.3-8.2) g/dL Albumin 3.9 (3.5-5.0) g/dL Urine Color Urine Appearance (Clear) Urine pH (5.0-8.0) Ur Specific Lancing (1.001-1.035) Urine Protein (Negative) Urine Glucose (UA) (Negative) Urine Ketones (Negative) Urine Blood (Negative) Urine Nitrite (Negative) Urine Bilirubin (Negative) Urine Urobilinogen (<2.0) mg/dL Ur Leukocyte Esterase (Negative) Urine Opiates Screen (NotDetected) Ur Oxycodone Screen (NotDetected) Urine Methadone Screen (NotDetected) Ur Propoxyphene Screen (NotDetected) Ur Barbiturates Screen (NotDetected) U Tricyclic Antidepress (NotDetected) Ur Phencyclidine Scrn (NotDetected) Ur Amphetamines Screen (NotDetected) U Methamphetamines Scrn (NotDetected) U Benzodiazepines Scrn (NotDetected) Urine Cocaine Screen (NotDetected) U Marijuana (THC) Screen (NotDetected) Acetone, Qual Negative (Negative) 07/18/19 07/19/19 07/19/19 Range/Units 22:07 00:34 00:35 WBC (3.8-10.6) k/uL RBC (4.30-5.90) m/uL Hgb (13.0-17.5) gm/dL Hct (39.0-53.0) % MCV (80.0-100.0) fL MCH (25.0-35.0) pg MCHC (31.0-37.0) g/dL RDW (11.5-15.5) % Plt Count (150-450) k/uL Neutrophils % (Manual) % Lymphocytes % (Manual) % Monocytes % (Manual) % Eosinophils % (Manual) % Neutrophils # (Manual) (1.3-7.7) k/uL Lymphocytes # (Manual) (1.0-4.8) k/uL Monocytes # (Manual) (0-1.0) k/uL Eosinophils # (Manual) (0-0.7) k/uL Nucleated RBCs (0-0) /100 WBC Manual Slide Review RBC Morphology Sodium (137-145) mmol/L Potassium (3.5-5.1) mmol/L Chloride (98-107) mmol/L Carbon Dioxide (22-30) mmol/L Anion Gap mmol/L BUN (9-20) mg/dL Creatinine (0.66-1.25) mg/dL Est GFR (CKD-EPI)AfAm (>60 ml/min/1.73 sqM) Est GFR (CKD-EPI)NonAf (>60 ml/min/1.73 sqM) Glucose (74-99) mg/dL POC Glucose (mg/dL) 279 H 46 L 42 L (75-99) mg/dL POC Glu Glass [employer] Feeder ID Brian, Amita Chavezo, Susan Ayana, Susan Calcium (8.4-10.2) mg/dL Total Bilirubin (0.2-1.3) mg/dL AST (17-59) U/L ALT (4-49) U/L Alkaline Phosphatase (38-126) U/L Total Protein (6.3-8.2) g/dL Albumin (3.5-5.0) g/dL Urine Color Urine Appearance (Clear) Urine pH (5.0-8.0) Ur Specific Lancing (1.001-1.035) Urine Protein (Negative) Urine Glucose (UA) (Negative) Urine Ketones (Negative) Urine Blood (Negative) Urine Nitrite (Negative) Urine Bilirubin (Negative) Urine Urobilinogen (<2.0) mg/dL Ur Leukocyte Esterase (Negative) Urine Opiates Screen (NotDetected) Ur Oxycodone Screen (NotDetected) Urine Methadone Screen (NotDetected) Ur Propoxyphene Screen (NotDetected) Ur Barbiturates Screen (NotDetected) U Tricyclic Antidepress (NotDetected) Ur Phencyclidine Scrn (NotDetected) Ur Amphetamines Screen (NotDetected) U Methamphetamines Scrn (NotDetected) U Benzodiazepines Scrn (NotDetected) Urine Cocaine Screen (NotDetected) U Marijuana (THC) Screen (NotDetected) Acetone, Qual (Negative) 07/19/19 07/19/19 07/19/19 Range/Units 01:01 01:48 02:33 WBC (3.8-10.6) k/uL RBC (4.30-5.90) m/uL Hgb (13.0-17.5) gm/dL Hct (39.0-53.0) % MCV (80.0-100.0) fL MCH (25.0-35.0) pg MCHC (31.0-37.0) g/dL RDW (11.5-15.5) % Plt Count (150-450) k/uL Neutrophils % (Manual) % Lymphocytes % (Manual) % Monocytes % (Manual) % Eosinophils % (Manual) % Neutrophils # (Manual) (1.3-7.7) k/uL Lymphocytes # (Manual) (1.0-4.8) k/uL Monocytes # (Manual) (0-1.0) k/uL Eosinophils # (Manual) (0-0.7) k/uL Nucleated RBCs (0-0) /100 WBC Manual Slide Review RBC Morphology Sodium (137-145) mmol/L Potassium (3.5-5.1) mmol/L Chloride (98-107) mmol/L Carbon Dioxide (22-30) mmol/L Anion Gap mmol/L BUN (9-20) mg/dL Creatinine (0.66-1.25) mg/dL Est GFR (CKD-EPI)AfAm (>60 ml/min/1.73 sqM) Est GFR (CKD-EPI)NonAf (>60 ml/min/1.73 sqM) Glucose (74-99) mg/dL POC Glucose (mg/dL) 118 H 93 78 (75-99) mg/dL POC Glu [employer] Feeder Susan Jamison, Lisa Gibbs Calcium (8.4-10.2) mg/dL Total Bilirubin (0.2-1.3) mg/dL AST (17-59) U/L ALT (4-49) U/L Alkaline Phosphatase (38-126) U/L Total Protein (6.3-8.2) g/dL Albumin (3.5-5.0) g/dL Urine Color Urine Appearance (Clear) Urine pH (5.0-8.0) Ur Specific Lancing (1.001-1.035) Urine Protein (Negative) Urine Glucose (UA) (Negative) Urine Ketones (Negative) Urine Blood (Negative) Urine Nitrite (Negative) Urine Bilirubin (Negative) Urine Urobilinogen (<2.0) mg/dL Ur Leukocyte Esterase (Negative) Urine Opiates Screen (NotDetected) Ur Oxycodone Screen (NotDetected) Urine Methadone Screen (NotDetected) Ur Propoxyphene Screen (NotDetected) Ur Barbiturates Screen (NotDetected) U Tricyclic Antidepress (NotDetected) Ur Phencyclidine Scrn (NotDetected) Ur Amphetamines Screen (NotDetected) U Methamphetamines Scrn (NotDetected) U Benzodiazepines Scrn (NotDetected) Urine Cocaine Screen (NotDetected) U Marijuana (THC) Screen (NotDetected) Acetone, Qual (Negative) 07/19/19 07/19/19 07/19/19 Range/Units 03:02 03:25 03:42 WBC (3.8-10.6) k/uL RBC (4.30-5.90) m/uL Hgb (13.0-17.5) gm/dL Hct (39.0-53.0) % MCV (80.0-100.0) fL MCH (25.0-35.0) pg MCHC (31.0-37.0) g/dL RDW (11.5-15.5) % Plt Count (150-450) k/uL Neutrophils % (Manual) % Lymphocytes % (Manual) % Monocytes % (Manual) % Eosinophils % (Manual) % Neutrophils # (Manual) (1.3-7.7) k/uL Lymphocytes # (Manual) (1.0-4.8) k/uL Monocytes # (Manual) (0-1.0) k/uL Eosinophils # (Manual) (0-0.7) k/uL Nucleated RBCs (0-0) /100 WBC Manual Slide Review RBC Morphology Sodium (137-145) mmol/L Potassium (3.5-5.1) mmol/L Chloride (98-107) mmol/L Carbon Dioxide (22-30) mmol/L Anion Gap mmol/L BUN (9-20) mg/dL Creatinine (0.66-1.25) mg/dL Est GFR (CKD-EPI)AfAm (>60 ml/min/1.73 sqM) Est GFR (CKD-EPI)NonAf (>60 ml/min/1.73 sqM) Glucose (74-99) mg/dL POC Glucose (mg/dL) 51 L 172 H (75-99) mg/dL POC Glu Glass Cut[employer] Machine Feeder ID Ayana, Susan Ayana, Susan Calcium (8.4-10.2) mg/dL Total Bilirubin (0.2-1.3) mg/dL AST (17-59) U/L ALT (4-49) U/L Alkaline Phosphatase (38-126) U/L Total Protein (6.3-8.2) g/dL Albumin (3.5-5.0) g/dL Urine Color Yellow Urine Appearance Clear (Clear) Urine pH 6.0 (5.0-8.0) Ur Specific Lancing 1.029 (1.001-1.035) Urine Protein Trace H (Negative) Urine Glucose (UA) 4+ H (Negative) Urine Ketones Negative (Negative) Urine Blood Negative (Negative) Urine Nitrite Negative (Negative) Urine Bilirubin Negative (Negative) Urine Urobilinogen <2.0 (<2.0) mg/dL Ur Leukocyte Esterase Negative (Negative) Urine Opiates Screen Not Detected (NotDetected) Ur Oxycodone Screen Not Detected (NotDetected) Urine Methadone Screen Not Detected (NotDetected) Ur Propoxyphene Screen Not Detected (NotDetected) Ur Barbiturates Screen Not Detected (NotDetected) U Tricyclic Antidepress Not Detected (NotDetected) Ur Phencyclidine Scrn Not Detected (NotDetected) Ur Amphetamines Screen Not Detected (NotDetected) U Methamphetamines Scrn Not Detected (NotDetected) U Benzodiazepines Scrn Not Detected (NotDetected) Urine Cocaine Screen Not Detected (NotDetected) U Marijuana (THC) Screen Detected H (NotDetected) Acetone, Qual (Negative) 07/19/19 07/19/19 Range/Units 04:08 04:40 WBC (3.8-10.6) k/uL RBC (4.30-5.90) m/uL Hgb (13.0-17.5) gm/dL Hct (39.0-53.0) % MCV (80.0-100.0) fL MCH (25.0-35.0) pg MCHC (31.0-37.0) g/dL RDW (11.5-15.5) % Plt Count (150-450) k/uL Neutrophils % (Manual) % Lymphocytes % (Manual) % Monocytes % (Manual) % Eosinophils % (Manual) % Neutrophils # (Manual) (1.3-7.7) k/uL Lymphocytes # (Manual) (1.0-4.8) k/uL Monocytes # (Manual) (0-1.0) k/uL Eosinophils # (Manual) (0-0.7) k/uL Nucleated RBCs (0-0) /100 WBC Manual Slide Review RBC Morphology Sodium (137-145) mmol/L Potassium (3.5-5.1) mmol/L Chloride (98-107) mmol/L Carbon Dioxide (22-30) mmol/L Anion Gap mmol/L BUN (9-20) mg/dL Creatinine (0.66-1.25) mg/dL Est GFR (CKD-EPI)AfAm (>60 ml/min/1.73 sqM) Est GFR (CKD-EPI)NonAf (>60 ml/min/1.73 sqM) Glucose (74-99) mg/dL POC Glucose (mg/dL) 157 H 194 H (75-99) mg/dL POC Glu Glass [employer] Feeder ID Susan Piña Tiffany Calcium (8.4-10.2) mg/dL Total Bilirubin (0.2-1.3) mg/dL AST (17-59) U/L ALT (4-49) U/L Alkaline Phosphatase (38-126) U/L Total Protein (6.3-8.2) g/dL Albumin (3.5-5.0) g/dL Urine Color Urine Appearance (Clear) Urine pH (5.0-8.0) Ur Specific Lancing (1.001-1.035) Urine Protein (Negative) Urine Glucose (UA) (Negative) Urine Ketones (Negative) Urine Blood (Negative) Urine Nitrite (Negative) Urine Bilirubin (Negative) Urine Urobilinogen (<2.0) mg/dL Ur Leukocyte Esterase (Negative) Urine Opiates Screen (NotDetected) Ur Oxycodone Screen (NotDetected) Urine Methadone Screen (NotDetected) Ur Propoxyphene Screen (NotDetected) Ur Barbiturates Screen (NotDetected) U Tricyclic Antidepress (NotDetected) Ur Phencyclidine Scrn (NotDetected) Ur Amphetamines Screen (NotDetected) U Methamphetamines Scrn (NotDetected) U Benzodiazepines Scrn (NotDetected) Urine Cocaine Screen (NotDetected) U Marijuana (THC) Screen (NotDetected) Acetone, Qual (Negative) Disposition <Azar Self - Last Filed: 07/19/19 02:07> <Deana Shin - Last Filed: 07/19/19 22:47> Clinical Impression: Depression, Hyperglycemia Disposition: ADMITTED IP TO THIS [facility] Condition: Serious
[2019-07-18 22:09] LABS: Glucose,Whole Blood 279 mg/dL (75-99)
[2019-07-19] MEDS ORDERED: DEXTROSE 50% SYRINGE 50 ML IVP STA ×2 (00:37→02:36)
[2019-07-19 00:38] LABS: Glucose,Whole Blood 42 mg/dL (75-99)
[2019-07-19 00:38] LABS: Glucose,Whole Blood 46 mg/dL (75-99)
[2019-07-19 01:02] LABS: Glucose,Whole Blood 118 mg/dL (75-99)
[2019-07-19 01:49] LABS: Glucose,Whole Blood 93 mg/dL (75-99)
[2019-07-19] MEDS ORDERED: IBUPROFEN 200 MG TAB PO STA (01:58)
[2019-07-19 02:35] LABS: Glucose,Whole Blood 78 mg/dL (75-99)
[2019-07-19 03:03] LABS: Glucose,Whole Blood 51 mg/dL (75-99)
[2019-07-19 03:27] LABS: Glucose,Whole Blood 172 mg/dL (75-99)
[2019-07-19 03:58] LABS: Appearance,Urine Clear (Clear); Bilirubin,Urine Negative (Negative); Blood,Urine Negative (Negative); Color,Urine Yellow; Glucose,Urine (UA) 4+ (Negative); Ketones,Urine Negative (Negative); Leukocyte Esterase,Urine Negative (Negative); Nitrite,Urine Negative (Negative); Protein,Urine Trace (Negative); Specific Gravity,Urine 1.029 (1.001-1.035); Urobilinogen,Urine <2.0 mg/dL (<2.0)
[2019-07-19 04:09] LABS: Amphetamine Screen,Urine Not Detected (NotDetected); Barbiturate Screen,Urine Not Detected (NotDetected); Benzodiazepines Screen,Urine Not Detected (NotDetected); Cocaine Screen,Urine Not Detected (NotDetected); Methadone Screen, Urine Not Detected (NotDetected); Opiate Screen,Urine Not Detected (NotDetected); Oxycodone Screen, Urine Not Detected (NotDetected); Phencyclidine Screen,Urine Not Detected (NotDetected); Tricyclic Antidepressant,Urine Not Detected (NotDetected); Urn Cannabinoid Scrn Detected (NotDetected)
[2019-07-19 04:10] LABS: Glucose,Whole Blood 157 mg/dL (75-99)
[2019-07-19 04:43] LABS: Glucose,Whole Blood 194 mg/dL (75-99)
[2019-07-19] MEDS ORDERED: ZIPRASIDONE 20 MG VIAL IM PRN (06:03)
[2019-07-19] MEDS ORDERED: MAGNESIUM HYDROXIDE 2,400 MG/10 ML CUP PO PRN (06:03)
[2019-07-19] MEDS ORDERED: ACETAMINOPHEN TAB 325 MG TAB PO PRN (06:03)
[2019-07-19 07:55] LABS: Glucose,Whole Blood 227 mg/dL (75-99)
[2019-07-19] MEDS: INSULIN ASPART (NovoLOG) 100 UNIT/ML VIAL SQ SCH ×8 (08:08→20:44)
[2019-07-19 09:39] LABS: Basophils # (A) 0.1 k/uL (0-0.2); Basophils % (A) 1 %; Eosinophils # (A) 5.2 k/uL (0-0.7); Eosinophils % (A) 22 %; HCT 45.5 % (39.0-53.0); HGB 15.4 gm/dL (13.0-17.5); Lymphocytes # (A) 2.6 k/uL (1.0-4.8); Lymphocytes % (A) 11 %; MCH 29.9 pg (25.0-35.0); MCHC 33.9 g/dL (31.0-37.0); MCV 88.4 fL (80.0-100.0); Mean Platelet Volume 7.4; Monocytes # (A) 0.9 k/uL (0-1.0); Monocytes % (A) 4 %; Neutrophils # (A) 14.9 k/uL (1.3-7.7); Neutrophils % (A) 62 %; Platelet Count 374 k/uL (150-450); RBC 5.14 m/uL (4.30-5.90); RDW 12.6 % (11.5-15.5); WBC 23.9 k/uL (3.8-10.6)
[2019-07-19 09:52] LABS: ALT 23 U/L (4-49); AST 28 U/L (17-59); African American GFR (CKD) >90 (>60 ml/min/1.73 sqM); Alkaline Phosphatase 98 U/L (38-126); Anion Gap 11 mmol/L; Bilirubin, Delta 0.2 mg/dL (0.0-0.2); Bilirubin,Unconjugated 0.2 mg/dL (0.0-1.1); Blood Urea Nitrogen 15 mg/dL (9-20); Calcium 8.9 mg/dL (8.4-10.2); Carbon Dioxide 27 mmol/L (22-30); Chloride 97 mmol/L (98-107); Cholesterol 120 mg/dL (<200); Glucose 315 mg/dL (74-99); HDL Cholesterol 38 mg/dL (40-60); LDL Cholesterol,Calculated 40 mg/dL (0-99); Non-African American GFR(CKD) >90 (>60 ml/min/1.73 sqM); Potassium 5.1 mmol/L (3.5-5.1); Sodium 135 mmol/L (137-145); Total Bilirubin 0.4 mg/dL (0.2-1.3); Total Protein 6.9 g/dL (6.3-8.2); Triglycerides 211 mg/dL (<150)
[2019-07-19] MEDS: MAG HYDROX/AL HYDROX/SIMETH 30 ML CUP PO PRN (11:09)
[2019-07-19 12:57] LABS: Glucose,Whole Blood 141 mg/dL (75-99)
--- NOTE | 2019-07-19 14:01 | P.HP ---
Psychiatric H&P - . H&P Date: 07/19/19 History & Physical: Allergies Allergy/AdvReac Type Severity Reaction Status Date / Time No Known Allergies Allergy Verified 07/18/19 19:46 Vital Signs Temp 97.5 F L 07/19/19 06:32 Pulse 122 H 07/19/19 06:32 Resp 18 07/19/19 06:32 BP 104/68 07/19/19 06:32 Pulse Ox 98 07/19/19 06:32 Intake & Output 07/18/19 07/19/19 07/19/19 18:59 06:59 18:59 Weight 65.119 kg Laboratory Last Values WBC 23.9 k/uL (3.8-10.6) H 07/19/19 08:36 RBC 5.14 m/uL (4.30-5.90) 07/19/19 08:36 Hgb 15.4 gm/dL (13.0-17.5) 07/19/19 08:36 Hct 45.5 % (39.0-53.0) 07/19/19 08:36 MCV 88.4 fL (80.0-100.0) 07/19/19 08:36 MCH 29.9 pg (25.0-35.0) 07/19/19 08:36 MCHC 33.9 g/dL (31.0-37.0) 07/19/19 08:36 RDW 12.6 % (11.5-15.5) 07/19/19 08:36 Plt Count 374 k/uL (150-450) 07/19/19 08:36 Neutrophils % 62 % 07/19/19 08:36 Neutrophils % (Manual) 44 % 07/18/19 19:55 Lymphocytes % 11 % 07/19/19 08:36 Lymphocytes % (Manual) 21 % 07/18/19 19:55 Monocytes % 4 % 07/19/19 08:36 Monocytes % (Manual) 5 % 07/18/19 19:55 Eosinophils % 22 % 07/19/19 08:36 Eosinophils % (Manual) 30 % 07/18/19 19:55 Basophils % 1 % 07/19/19 08:36 Neutrophils # 14.9 k/uL (1.3-7.7) H 07/19/19 08:36 Neutrophils # (Manual) 6.07 k/uL (1.3-7.7) 07/18/19 19:55 Lymphocytes # 2.6 k/uL (1.0-4.8) 07/19/19 08:36 Lymphocytes # (Manual) 2.90 k/uL (1.0-4.8) 07/18/19 19:55 Monocytes # 0.9 k/uL (0-1.0) 07/19/19 08:36 Monocytes # (Manual) 0.69 k/uL (0-1.0) 07/18/19 19:55 Eosinophils # 5.2 k/uL (0-0.7) H 07/19/19 08:36 Eosinophils # (Manual) 4.14 k/uL (0-0.7) H 07/18/19 19:55 Basophils # 0.1 k/uL (0-0.2) 07/19/19 08:36 Nucleated RBCs 0 /100 WBC (0-0) 07/18/19 19:55 Manual Slide Review Performed 07/19/19 08:36 RBC Morphology Normal 07/18/19 19:55 Sodium 135 mmol/L (137-145) L 07/19/19 08:33 Potassium 5.1 mmol/L (3.5-5.1) 07/19/19 08:33 Chloride 97 mmol/L (98-107) L 07/19/19 08:33 Carbon Dioxide 27 mmol/L (22-30) 07/19/19 08:33 Anion Gap 11 mmol/L 07/19/19 08:33 BUN 15 mg/dL (9-20) 07/19/19 08:33 Creatinine 0.45 mg/dL (0.66-1.25) L 07/19/19 08:33 Est GFR (CKD-EPI)AfAm >90 (>60 ml/min/1.73 sqM) 07/19/19 08:33 Est GFR (CKD-EPI)NonAf >90 (>60 ml/min/1.73 sqM) 07/19/19 08:33 Glucose 315 mg/dL (74-99) H 07/19/19 08:33 POC Glucose (mg/dL) 141 mg/dL (75-99) H 07/19/19 12:52 POC Glu Senior Java Software Developer Palak Bartlett 07/19/19 12:52 Calcium 8.9 mg/dL (8.4-10.2) 07/19/19 08:33 Total Bilirubin 0.4 mg/dL (0.2-1.3) 07/19/19 08:33 Conjugated Bilirubin 0.0 mg/dL (0.0-0.3) 07/19/19 08:33 Unconjugated Bilirubin 0.2 mg/dL (0.0-1.1) 07/19/19 08:33 Delta Bilirubin 0.2 mg/dL (0.0-0.2) 07/19/19 08:33 AST 28 U/L (17-59) 07/19/19 08:33 ALT 23 U/L (4-49) 07/19/19 08:33 Alkaline Phosphatase 98 U/L (38-126) 07/19/19 08:33 Total Protein 6.9 g/dL (6.3-8.2) 07/19/19 08:33 Albumin 4.0 g/dL (3.5-5.0) 07/19/19 08:33 Triglycerides 211 mg/dL (<150) H 07/19/19 08:33 Cholesterol 120 mg/dL (<200) 07/19/19 08:33 LDL Cholesterol, Calc 40 mg/dL (0-99) 07/19/19 08:33 HDL Cholesterol 38 mg/dL (40-60) L 07/19/19 08:33 TSH 2.430 mIU/L (0.465-4.680) 07/19/19 08:33 Urine Color Yellow 07/19/19 03:42 Urine Appearance Clear (Clear) 07/19/19 03:42 Urine pH 6.0 (5.0-8.0) 07/19/19 03:42 Ur Specific [place] 1.029 (1.001-1.035) 07/19/19 03:42 Urine Protein Trace (Negative) H 07/19/19 03:42 Urine Glucose (UA) 4+ (Negative) H 07/19/19 03:42 Urine Ketones Negative (Negative) 07/19/19 03:42 Urine Blood Negative (Negative) 07/19/19 03:42 Urine Nitrite Negative (Negative) 07/19/19 03:42 Urine Bilirubin Negative (Negative) 07/19/19 03:42 Urine Urobilinogen <2.0 mg/dL (<2.0) 07/19/19 03:42 Ur Leukocyte Esterase Negative (Negative) 07/19/19 03:42 Urine Opiates Screen Not Detected (NotDetected) 07/19/19 03:42 Ur Oxycodone Screen Not Detected (NotDetected) 07/19/19 03:42 Urine Methadone Screen Not Detected (NotDetected) 07/19/19 03:42 Ur Propoxyphene Screen Not Detected (NotDetected) 07/19/19 03:42 Ur Barbiturates Screen Not Detected (NotDetected) 07/19/19 03:42 U Tricyclic Antidepress Not Detected (NotDetected) 07/19/19 03:42 Ur Phencyclidine Scrn Not Detected (NotDetected) 07/19/19 03:42 Ur Amphetamines Screen Not Detected (NotDetected) 07/19/19 03:42 U Methamphetamines Scrn Not Detected (NotDetected) 07/19/19 03:42 U Benzodiazepines Scrn Not Detected (NotDetected) 07/19/19 03:42 Urine Cocaine Screen Not Detected (NotDetected) 07/19/19 03:42 U Marijuana (THC) Screen Detected (NotDetected) H 07/19/19 03:42 Acetone, Qual Negative (Negative) 07/18/19 19:55 07/19/19 13:37 IDENTIFYING DATA: Patient is a 23-year-old male with a history of depression and type 1 diabetes currently single with no kids living with his friend. HPI: Patient presented to the hospital yesterday with a complaint of suicidal ideations and depression. Patient has been coming to the ER frequently with issues related to his diabetes. Patient was noted to have elevated white blood cell count and blood sugars greater than 400, for was not in DKA. Patient states that he was sitting in uatsdin and was having negative thoughts about his grandmother and his guilt related to her . He states that he feels that it is her fault that she a year ago as he was dealing with his "addiction to Xanax" and feels that that was the reason why she . He claims that his friend dropped him off in the hospital as he didn't feel safe as he was mentioning a plan to go to the bathroom an overdose on insulin. Patient claims that since yesterday he has been doing mildly better however continues to feel depressed. He states that he has been trying to take care of himself with regards to eating/nutrition and taking his medications however was guarded about why he has been coming to the ER frequently. Patient states that he has been to taking his Prozac and trazodone at home. At this time patient states that he is having difficulties with sleep and appetite is fair. He claims that he does have fleeting thoughts of suicide at this time however no intent or plan. Patient denies any homicidal ideations intent or plan. At this time patient denies any auditory or visual hallucinations. Patient denies any flight of ideas racing thoughts and increased in goal directed behavior. Patient admits to using marijuana 1-2 times a week and states that he only takes "a couple of hits". He denies any other recreational drug use and denies cigarette use. PAST PSYCHIATRIC HISTORY: Patient states that he has history of depression and anxiety and has had multiple hospitalizations. Patient was taking trazodone 300 mg and Prozac at home. He was last admitted to the mental health unit on 12/2018. He admitted to a previous suicide attempt when he was 18 years old when he overdosed on insulin. PMH: Diabetes mellitus type 1 uncontrolled, asthma, skin disorder ALLERGIES: as per EMR CHEMICAL DEPENDENCY HISTORY: as per HPI FAMILY PSYCHIATRIC/SUBSTANCE USE HISTORY: He states that one of his cousins committed suicide SOCIAL HISTORY: Patient is currently single has no kids is living with his friend at this time. 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 MENTAL STATUS EXAM: General Appearance: Patient appears to be stated age is alert, directable, and guarded. Patient appears to have poor hygiene and grooming. Behavior: Patient is seated without any agitated behavior. Speech: Patient's speech is fluent and nonpressured. Soft tone. Mood/Affect: Patient reports their mood is depressed, affect is congruent and constricted. Suicidality/Homicidality: Patient denies having any homicidal ideation intent or plan. He admits to suicidal ideations over no intent or plan. Perceptions: Patient denies any visual hallucinations and denies any auditory hallucinations Though content/process: There is no evidence of any delusional thought content and thought process is linear and goal-directed. Guarded. Memory and concentration: AOX3, grossly intact for the purposes of this session. Can spell "WORLD" backwards Judgment and insight: poor STRENGTHS/WEAKNESSES: strength is that patient is resilient. Weakness is that patient has poor judgment and insight. INTELLECT: average IMPRESSIONS: Major depressive disorder, without psychotic features Anxiety disorder and specified Cannabis abuse History of stimulant abuse. PLAN: -Patient is admitted under voluntary status to MHU for stabilization of psychiatric symptoms and safety. Patient signed adult voluntary form and medication consent and is placed in patient's chart. -Medications : Will start patient on trazodone however we will start at a lower dose, 200 mg nightly for insomnia/mood. We'll also restart patient on Prozac 20 mg daily and consider titrating up for mood/anxiety. -Ativan and Geodon PRN for agitation/aggression -Patient was counselled on substance abuse and desired to cut back on use -Patient was informed of the risks, benefits and side effects of the medication and patient verbally consented to taking the medications. Patient signed med consent form and was placed in chart. -Internal Medicine consult to perform medical evaluation and physical. Patient currently has elevated white blood cell count however no neutrophilia. Patient is tachycardic. -NRT -not need to this patient does not smoke -SW on board for discharge planning. Encourage patient to participate in groups to work on coping skills. 07/19/19 13:52
[2019-07-19] MEDS: FLUoxetine HCL 20 MG CAP PO SCH (15:16)
[2019-07-19] MEDS ORDERED: INSULIN LISPRO (For Pump) 100 UNIT/ML VIAL SQ-PUMP SCH (17:30)
[2019-07-19 17:31] LABS: Glucose,Whole Blood 120 mg/dL (75-99)
[2019-07-19 18:18] LABS: Hemoglobin A1C 11.5 % (4.0-6.0)
--- NOTE | 2019-07-19 19:35 | CONS ---
CONSULTATION CHIEF COMPLAINT: Major depression. HISTORY OF PRESENT ILLNESS: This is a gentleman who presented himself to the emergency room for admission for depression, which he has had problems with on and off in the past. He is a noncompliant type 1 insulin-dependent diabetic. REVIEW OF SYSTEMS: He denies headaches, visual changes, shortness of breath, chest pain, abdominal pain, nausea, diarrhea, dysuria, frequency, urgency, hematuria, arthralgias, etc. Past medical history, family history and personal and social histories are all unchanged from his recent admitting and discharge summary. He just left the floor several days ago. He is on Basaglar 50 units once a day and Admelog 15 mg before meals. He is also on gabapentin. He uses hydrocortisone cream for atopic dermatitis. PHYSICAL EXAMINATION: Blood pressure is 120/70, pulse 92, respirations 16, he is afebrile. In general, he appears to be tall, slender, and in no acute distress. Skin color is normal. Skin is warm and dry. The lymph nodes are not enlarged. Head, ears, eyes, nose, mouth, and throat were normal. Neck veins are not distended. Thyroid is not enlarged. Chest is clear. Cardiac exam is normal. The abdomen is soft and nontender. Extremities normal. IMPRESSION: 1. Major depression. 2. Poorly-controlled, insulin-dependent type 1 diabetes mellitus. 3. Eczema. PLAN: No changes in his medical program at this time except to reintroduce his insulin. MMODL / IJN: [id number] /
[2019-07-19 20:05] LABS: Glucose,Whole Blood 171 mg/dL (75-99)
[2019-07-19] MEDS: INSULIN DETEMIR (LEVEMIR) 100 UNIT/ML SYR SQ SCH (20:46)
[2019-07-19] MEDS: TRIAMCINOLONE 0.1% CREAM 80 GM TUBE TOPICAL PRN (20:48)
[2019-07-19] MEDS: GABAPENTIN 300 MG CAP PO SCH (20:49)
[2019-07-19] MEDS: traZODone HCL 100 MG TAB PO SCH (20:49)
[2019-07-19] MEDS ORDERED: INSULIN GLARGINE HUM REC ANLOG 50 UNIT SQ SCH (21:00)
[2019-07-20 02:06] LABS: Glucose,Whole Blood 121 mg/dL (75-99)
[2019-07-20 08:03] LABS: Glucose,Whole Blood 86 mg/dL (75-99)
[2019-07-20] MEDS: INSULIN ASPART (NovoLOG) 100 UNIT/ML VIAL SQ SCH ×7 (08:19→20:49)
[2019-07-20] MEDS: FLUoxetine HCL 20 MG CAP PO SCH (08:28)
[2019-07-20] MEDS: GABAPENTIN 300 MG CAP PO SCH ×2 (08:28→20:46)
[2019-07-20 12:40] LABS: Glucose,Whole Blood 164 mg/dL (75-99)
[2019-07-20] MEDS: MAG HYDROX/AL HYDROX/SIMETH 30 ML CUP PO PRN (13:32)
[2019-07-20 17:16] LABS: Glucose,Whole Blood 158 mg/dL (75-99)
[2019-07-20 19:59] LABS: Glucose,Whole Blood 126 mg/dL (75-99)
[2019-07-20] MEDS: INSULIN DETEMIR (LEVEMIR) 100 UNIT/ML SYR SQ SCH (20:45)
[2019-07-20] MEDS: traZODone HCL 100 MG TAB PO SCH (20:46)
[2019-07-20] MEDS: TRIAMCINOLONE 0.1% CREAM 80 GM TUBE TOPICAL PRN (20:48)
[2019-07-21 02:28] LABS: Glucose,Whole Blood 146 mg/dL (75-99)
[2019-07-21 06:54] LABS: Glucose,Whole Blood 58 mg/dL (75-99)
[2019-07-21 07:21] LABS: Glucose,Whole Blood 116 mg/dL (75-99)
[2019-07-21] MEDS: INSULIN ASPART (NovoLOG) 100 UNIT/ML VIAL SQ SCH ×7 (08:19→20:55)
[2019-07-21] MEDS: FLUoxetine HCL 20 MG CAP PO SCH (08:58)
[2019-07-21] MEDS: GABAPENTIN 300 MG CAP PO SCH ×2 (08:59→20:56)
--- NOTE | 2019-07-21 11:32 | P.PN ---
Progress Note - Text Progress Note Date: 07/20/19 Interval History: Patient was seen laying in his bed and appeared to be tired however was direct able and agreeable to speak to field underwriter in the office. He states that he slept well last night however claims that he continues to feel tired this morning. He states that he had difficulties concentrating during group but does claim that his mood has been feeling better overall. He states that he has been thinking more about his grandmother and the guilt that he has from her . He spoke about being raised by her as his mother was at school and working when he was child. He states that he did talk to his mother yesterday who will try to come and visit him in the hospital tonight. He states that he has been trying to go to groups and participate as best as he can work on coping skills. He states that his energy is fair and appetite is improved. At this time patient denies any suicidal or homical ideations, intent or plan. Patient denies any auditory, visual hallucinations and denies any paranoia or delusions. Patient denies any side effects from the medications and has been compliant with meds. Mental Status Exam: General Appearance: Patient appears to be stated age is alert, directable, and attempts to cooperate. Patient appears to have poor hygiene and grooming. Behavior: Patient is seated without any agitated behavior. Attempts to cooperate Speech: Patient's speech is fluent and nonpressured. Mood/Affect: Patient reports their mood is depressed however improving mildly, affect is congruent and constricted. Suicidality/Homicidality: Patient denies having any homicidal ideation intent or plan. He denies any suicidal ideations and no intent or plan. Perceptions: Patient denies any visual hallucinations and denies any auditory hallucinations Though content/process: There is no evidence of any delusional thought content and thought process is linear and goal-directed. Memory and concentration: AOX3, grossly intact for the purposes of this session. Judgment and insight: poor, mildly improving. Assessment Major depressive disorder, without psychotic features Anxiety disorder and specified Cannabis abuse History of stimulant abuse. Plan: -Patient continues to meet criteria for inpatient psychiatric admission for symptom stabilization and safety. Patient has signed adult voluntary form and medication consent and was placed in patient's chart. -Medications: We'll continue trazodone 200 mg daily at bedtime for insomnia/mood, Prozac to be continued at 40 mg daily for mood/anxiety. -When necessary Ativan and Geodon for agitation/aggression. -NRT -not needed as patient does not smoke -SW on board for discharge planning. Encourage patient to participate in groups to work on coping skills. Patient's mother will be visiting him [place]
[2019-07-21 12:34] LABS: Glucose,Whole Blood 206 mg/dL (75-99)
[2019-07-21 17:44] LABS: Glucose,Whole Blood 184 mg/dL (75-99)
[2019-07-21 20:02] LABS: Glucose,Whole Blood 183 mg/dL (75-99)
[2019-07-21] MEDS: INSULIN DETEMIR (LEVEMIR) 100 UNIT/ML SYR SQ SCH (20:56)
[2019-07-21] MEDS: traZODone HCL 100 MG TAB PO SCH (20:56)
[2019-07-22 05:13] LABS: Glucose,Whole Blood 151 mg/dL (75-99)
[2019-07-22 07:57] LABS: Glucose,Whole Blood 57 mg/dL (75-99)
[2019-07-22 08:33] LABS: Glucose,Whole Blood 152 mg/dL (75-99)
[2019-07-22] MEDS: INSULIN ASPART (NovoLOG) 100 UNIT/ML VIAL SQ SCH ×7 (08:33→21:56)
[2019-07-22] MEDS: GABAPENTIN 300 MG CAP PO SCH ×2 (08:36→21:55)
[2019-07-22] MEDS: FLUoxetine HCL 20 MG CAP PO SCH (08:36)
[2019-07-22 08:44] LABS: Basophils # (A) 0.1 k/uL (0-0.2); Basophils % (A) 1 %; Eosinophils # (A) 4.7 k/uL (0-0.7); Eosinophils % (A) 24 %; HCT 43.2 % (39.0-53.0); HGB 14.5 gm/dL (13.0-17.5); Lymphocytes % (A) 15 %; MCH 30.4 pg (25.0-35.0); MCHC 33.6 g/dL (31.0-37.0); MCV 90.4 fL (80.0-100.0); Monocytes # (A) 1.2 k/uL (0-1.0); Monocytes % (A) 6 %; Neutrophils # (A) 10.1 k/uL (1.3-7.7); Neutrophils % (A) 52 %; Platelet Count 374 k/uL (150-450); RBC 4.77 m/uL (4.30-5.90); RDW 12.8 % (11.5-15.5); WBC 19.4 k/uL (3.8-10.6)
--- NOTE | 2019-07-22 11:42 | P.PN ---
Progress Note - Text Progress Note Date: 07/22/19 Interval History: Patient was seen wandering the hallways during group and was directable and ag reeable to speak to contract technical writer in the office. He states that he did not sleep well last night and stated that he had nightmares. He states that he was previously on trazodone 300 mg and would like to have that increased to his home dose. He claims that he continues to feel tired this morning and spoke about having diarrhea after meals and states that he stooled in his pants last night and was embarrassed about it and concerned. Patient states that he feels his depression has not changed much and continues to feel "down" and also sad. He states that he is continuing to have fleeting thoughts of suicide especially of overdose on his insulin however he states that on the unit his insulin dosing is tightly controlled. He continues to endorse guilt about his grandmother's . He states that his mother was not able to visit him last night however he did talk to her on the phone and it went well. He states that he has been trying to go to groups and participate as best as he can work on coping skills. At this time patient denies any homical ideations, intent or plan. Patient denies any auditory, visual hallucinations and denies any paranoia or delusions. Patient denies any side effects from the medications and has been compliant with meds. Mental Status Exam: General Appearance: Patient appears to be stated age is alert, directable, and attempts to cooperate. Patient appears to have poor hygiene and grooming. Behavior: Patient is seated without any agitated behavior. Attempts to cooperate. Speech: Patient's speech is fluent and nonpressured. Mood/Affect: Patient reports their mood is depressed, affect is congruent and Depressed affect. Suicidality/Homicidality: Patient denies having any homicidal ideation intent or plan. He denies any suicidal ideations and no intent or plan. Perceptions: Patient denies any visual hallucinations and denies any auditory hallucinations Though content/process: There is no evidence of any delusional thought content and thought process is linear and goal-directed. Significant theme of guilt. Memory and concentration: AOX3, grossly intact for the purposes of this session. Judgment and insight: poor, mildly improving. Assessment Major depressive disorder, without psychotic features Anxiety disorder and specified Cannabis abuse History of stimulant abuse. Plan: -Patient continues to meet criteria for inpatient psychiatric admission for symptom stabilization and safety. Patient has signed adult voluntary form and medication consent and was placed in patient's chart. -Medications: We'll increase trazodone 300 mg daily at bedtime for insomnia/mood, increased Prozac 60 mg daily for mood/anxiety. -When necessary Ativan and Geodon for agitation/aggression. -Patient continues to have elevated white blood cell count and tachycardia along with diarrhea. Will ask Dr. Valenzuela to evaluate patient once again for any further recommendations. -NRT -not needed as patient does not smoke -SW on board for discharge planning. Encourage patient to participate in groups to work on coping skills. Likely discharge early next week
[2019-07-22 12:55] LABS: Glucose,Whole Blood 136 mg/dL (75-99)
[2019-07-22 15:25] LABS: HCT 41.5 % (39.0-53.0); HGB 13.9 gm/dL (13.0-17.5); MCHC 33.4 g/dL (31.0-37.0); Mean Platelet Volume 6.7; Platelet Count 357 k/uL (150-450); RBC 4.61 m/uL (4.30-5.90); RDW 12.7 % (11.5-15.5); WBC 15.3 k/uL (3.8-10.6)
[2019-07-22 16:48] LABS: Eosinophils # (M) 5.05 k/uL (0-0.7); Lymphocytes # (M) 2.75 k/uL (1.0-4.8); Monocytes # (M) 0.77 k/uL (0-1.0); Neutrophils # (M) 6.73 k/uL (1.3-7.7); Neutrophils % (M) 44 %; Nucleated Red Blood Cells 0 /100 WBC (0-0); Polychromasia Present; Total Cells Counted 100
[2019-07-22 17:23] LABS: Glucose,Whole Blood 156 mg/dL (75-99)
[2019-07-22 19:59] LABS: Glucose,Whole Blood 184 mg/dL (75-99)
[2019-07-22] MEDS: traZODone HCL 100 MG TAB PO SCH (21:54)
[2019-07-23 07:44] LABS: Glucose,Whole Blood 293 mg/dL (75-99)
[2019-07-23] MEDS: INSULIN ASPART (NovoLOG) 100 UNIT/ML VIAL SQ SCH ×7 (08:06→21:03)
[2019-07-23] MEDS: INSULIN DETEMIR (LEVEMIR) 100 UNIT/ML SYR SQ SCH (08:06)
[2019-07-23] MEDS: GABAPENTIN 300 MG CAP PO SCH ×2 (08:07→21:02)
[2019-07-23] MEDS: FLUoxetine HCL 20 MG CAP PO SCH (08:07)
--- NOTE | 2019-07-23 11:25 | P.PN ---
Progress Note - Text Progress Note Date: 07/23/19 Interval History: Patient was seen laying down in his bed and appeared to be asleep however was awoken and was directable and agreeable to speak to typewriter tester in the office. Patient appeared to be tired this morning and states that he did not sleep well last night. He states that he continues to have some abnormal dreams however states that they're getting better. Patient wants to remain on the same medication dose Prozac 60 mg. He states that his mood has been mildly improving with regard to his depression. He claims that he continues to feel tired this morning and spoke about having diarrhea which has gotten mildly better over the past day. He spoke about having his insulin adjusted yesterday and claims that "my blood sugars are messed up" and believes that that's the reason why he had a poor night last night. He states that his suicidal thoughts have been gradually improving. He states that he has been trying to go to groups and participate as best as he can work on coping skills. Admits to fair appetite. At this time patient denies any homical ideations, intent or plan. Patient denies any auditory, visual hallucinations and denies any paranoia or delusions. Patient denies any side effects from the medications and has been compliant with meds. Mental Status Exam: General Appearance: Patient appears to be stated age is alert, directable, and attempts to cooperate. Patient appears to have poor hygiene and grooming. Behavior: Patient is seated without any agitated behavior. Attempts to cooperate. Speech: Patient's speech is fluent and nonpressured. Soft tone. Mood/Affect: Patient reports their mood is mildly improving, affect is congruent Suicidality/Homicidality: Patient denies having any homicidal ideation intent or plan. He denies any suicidal ideations and no intent or plan. Perceptions: Patient denies any visual hallucinations and denies any auditory hallucinations Though content/process: There is no evidence of any delusional thought content and thought process is linear and goal-directed. Significant theme of guilt. Memory and concentration: AOX3, grossly intact for the purposes of this session. Judgment and insight: poor, mildly improving. Assessment Major depressive disorder, without psychotic features Anxiety disorder and specified Cannabis abuse History of stimulant abuse. Plan: -Patient continues to meet criteria for inpatient psychiatric admission for symptom stabilization and safety. Patient has signed adult voluntary form and medication consent and was placed in patient's chart. -Medications: We'll continue with trazodone 300 mg daily at bedtime for insomnia/mood, continue with Prozac 60 mg daily for mood/anxiety. Added on Wellbutrin SR 100 mg daily as mood adjunct. -When necessary Ativan and Geodon for agitation/aggression. -Will order CBC with differential tomorrow a.m to check for any changes with white blood cell count. Patient's diarrhea has been mildly improving since yesterday. Will ask Dr. Valenzuela to evaluate patient once again for any further recommendations. -NRT -not needed as patient does not smoke -SW on board for discharge planning. Encourage patient to participate in groups to work on coping skills. Likely discharge early next week
[2019-07-23] MEDS: buPROPion SR 100 MG TABLET.ER PO SCH (11:57)
[2019-07-23 12:37] LABS: Glucose,Whole Blood 114 mg/dL (75-99)
--- NOTE | 2019-07-23 15:21 | P.CONS ---
History of Present Illness - Reason for Consult Consult date: 07/23/19 leukocytosis, polycythemia, eosinophilia - History of Present Illness The patient is a 23-year-old white male with multiple medical problems, most prominently difficult to control diabetes, with multiple admissions for hyperglycemia/DKA, as well as major depression with admissions for related complications. The patient was admitted this time with a suicidal ideation when he had taken too much insulin. On admission hemoglobin was in the 18 range but declined rapidly into the 13 range with hydration. WBC has been elevated in the 13-17,000 range, with increased eosinophils in the 5000 range. Consult was therefore placed for further evaluation and recommendations. Multiple labs were reviewed, going back 2014. The patient has had intermittent elevations of hemoglobin in the 17-18 range, but these appear to be during admissions for DKA/dehydration. Hemoglobin appears to normalize rapidly with treatment. He has also had elevations of WBC, as high as 50,000 in 2016. Again these seem to be associated with acute illness, with predominant neutrophilia, with normalization with treatment of the acute problem. This admission is however new. The patient does have a history of skin rash and states that he had an exacerbation of the same within the last few weeks requiring topical as well as systemic antibiotic treatment. He stated that he has a history of eczema. Review of Systems Constitutional: Reports weakness Eyes: denies blurred vision, denies pain Ears: deny: decreased hearing, ear discharge, earache, tinnitus Ears, nose, mouth and throat: Denies headache, Denies sore throat Cardiovascular: Denies chest pain, Denies shortness of breath Respiratory: Denies cough Gastrointestinal: Reports diarrhea Genitourinary: Reports as per HPI Musculoskeletal: Denies myalgias Integumentary: Reports rash, Reports sores Neurological: Denies numbness, Denies weakness Psychiatric: Reports as per HPI, Reports depression, Reports suicidal ideation Endocrine: Reports high blood sugars Hematologic/Lymphatic: Reports as per HPI Past Medical History Past Medical History: Asthma, Diabetes Mellitus, Skin Disorder Additional Past Medical History / Comment(s): , insulin dependent diabetes oral apraxia; previous suicidal attempts anxiety/depression, previous hospital physicians for DKA,gastroparesis. History of Any Multi-Drug Resistant Organisms: None Reported Past Surgical History: Adenoidectomy Additional Past Surgical History / Comment(s): 2002 Past Anesthesia/Blood Transfusion Reactions: No Reported Reaction Past Psychological History: Anxiety, Depression Additional Psychological History / Comment(s): Feeling depressed almost every day Smoking Status: Former smoker Past Alcohol Use History: None Reported Additional Past Alcohol Use History / Comment(s): Started smoking at age 15, quit age 19. Past Drug Use History: None Reported Additional Drug Use History / Comment(s): PT STATED HE IS SLOWING DOWN ON USE OF MARIJUANA AND LAST USED 01/16/19 - Past Family History Mother Family Medical History: CVA/TIA Father Family Medical History: Hyperlipidemia, Hypertension Additional Family Medical History / Comment(s): . Medications and Allergies Home Medications Medication Instructions Recorded Confirmed Type Gabapentin [Neurontin] 300 mg PO QAM 05/11/19 07/21/19 History Gabapentin [Neurontin] 600 mg PO HS 05/11/19 07/21/19 History traZODone HCL [Desyrel] 300 mg PO HS 06/16/19 07/21/19 History Triamcinolone 0.1% Cream [Kenalog 1 applic TOPICAL QID PRN 07/15/19 07/21/19 History 0.1% Cream] Insulin Glargine,Hum.rec.anlog 50 unit SQ HS #1 pen 07/17/19 07/21/19 Rx [Basaglar Kwikpen U-100] Insulin Lispro [Admelog] 15 units SQ AC-TID #1 vial 07/17/19 07/21/19 Rx Allergies Allergy/AdvReac Type Severity Reaction Status Date / Time No Known Allergies Allergy Verified 07/21/19 11:39 Physical Exam Vitals: Vital Signs Temp Pulse Resp BP 07/23/19 07:00 97.4 F L 101 H 16 125/58 - Constitutional General appearance: no acute distress - EENT Eyes: EOMI, PERRLA ENT: hearing grossly normal, normal oropharynx - Neck Neck: no lymphadenopathy Thyroid: bilateral: normal size - Respiratory Respiratory: bilateral: CTA - Cardiovascular Rhythm: regular Heart sounds: normal: S1, S2 - Gastrointestinal General gastrointestinal: normal bowel sounds, soft - Integumentary Integumentary: rash (Radiation, maculopapular, involving distal upper extremities and hands. No blisters or open sores) - Neurologic Neurologic: CNII-XII intact - Musculoskeletal Musculoskeletal: generalized weakness, strength equal bilaterally - Psychiatric Psychiatric: A&O x's 3, appropriate affect Results CBC & Chem 7: 07/22/19 14:53 07/19/19 08:33 Labs: Abnormal Lab Results - Last 24 Hours (Table) 07/22/19 07/22/19 07/22/19 Range/Units 14:53 17:20 19:58 WBC 15.3 H (3.8-10.6) k/uL Eosinophils # (Manual) 5.05 H (0-0.7) k/uL POC Glucose (mg/dL) 156 H 184 H (75-99) mg/dL 07/23/19 07/23/19 Range/Units 07:42 12:36 WBC (3.8-10.6) k/uL Eosinophils # (Manual) (0-0.7) k/uL POC Glucose (mg/dL) 293 H 114 H (75-99) mg/dL Chest x-ray: report reviewed CT scan - abdomen: report reviewed CT scan - chest: report reviewed CT scan - pelvis: report reviewed Venous US: report reviewed Assessment and Plan (1) Polycythemia Narrative/Plan: The patient's polycythemia has been quite intermittent, with maximal hemoglobin in the 18 range, including 18.3 this admission. These episodes appear to be related to acute illnesses, mostly admissions for DKA when the patient is dehydrated. Hemoglobin seems to fall rapidly with hydration, and is generally in the normal range at the time of discharge. This critical pattern is most consistent with a secondary polycythemia due to hemoconcentration. A primary polycythemia at this time appears to be much less likely. During this admission also hemoglobin has fallen into the 13 range with hydration. I will initiate workup by checking for erythropoietin levels. If this is normal, we can consider a more advanced gently testing with MPN mutations as an outpatient, if polycythemia recurs without other explanation. Current Visit: Yes Status: Acute Code(s): D75.1 - SECONDARY POLYCYTHEMIA SNOMED Code(s): 072944144 (2) Leukocytosis Narrative/Plan: This has occurred more frequently but has also been intermittent. Again this appears to be associated with hospital admissions for acute illnesses such as DKA/dehydration. Review of differentials indicates predominant neutrophilia without any significant persistent left shift. Again, this is most consistent with reactive leukocytosis, with a primary MPD much less likely During this admission eosinophilia is noted in the neutrophils a more predominant. The eosinophilia is a new finding, and could be a transient reactive increase given his recent skin rash exacerbation. I will check iron studies and autoimmune markers as well as sedimentation rate for initial workup. Follow-up as outpatient. If there is persistent leukocytosis without other explanation, then MPD markers will be tested Current Visit: No Status: Acute Code(s): D72.829 - ELEVATED WHITE BLOOD CELL COUNT, UNSPECIFIED SNOMED Code(s): 129641323 (3) Eosinophilia Narrative/Plan: This is a new finding for the patient, was episodes of leukocytosis previously have been predominantly neutrophilic. Again, given recent rash, transient reactive increase is felt to be more likely rather than a primary MPD. Check IgG levels. Follow-up as an outpatient with testing for MPD markers if this persists Current Visit: Yes Status: Acute Code(s): D72.1 - EOSINOPHILIA SNOMED Code(s): 544350131 Plan: #1. Consult GI for his complains of chronic diarrhea #2. Defer to the admitting service and other consultants for management of his other medical problems
[2019-07-23 17:20] LABS: Glucose,Whole Blood 146 mg/dL (75-99)
[2019-07-23 19:52] LABS: Glucose,Whole Blood 110 mg/dL (75-99)
[2019-07-23] MEDS: TRIAMCINOLONE 0.1% CREAM 80 GM TUBE TOPICAL PRN (21:02)
[2019-07-23] MEDS: traZODone HCL 100 MG TAB PO SCH (21:03)
[2019-07-24 03:04] LABS: Glucose,Whole Blood 174 mg/dL (75-99)
[2019-07-24 07:19] LABS: Basophils # (A) 0.1 k/uL (0-0.2); Basophils % (A) 1 %; Eosinophils # (A) 5.4 k/uL (0-0.7); HCT 41.4 % (39.0-53.0); HGB 13.7 gm/dL (13.0-17.5); Lymphocytes # (A) 3.1 k/uL (1.0-4.8); Lymphocytes % (A) 19 %; MCH 30.2 pg (25.0-35.0); MCHC 33.1 g/dL (31.0-37.0); MCV 91.4 fL (80.0-100.0); Mean Platelet Volume 6.7; Monocytes % (A) 6 %; Neutrophils # (A) 6.3 k/uL (1.3-7.7); Neutrophils % (A) 39 %; Platelet Count 323 k/uL (150-450); RBC 4.53 m/uL (4.30-5.90); RDW 12.9 % (11.5-15.5); WBC 16.2 k/uL (3.8-10.6)
[2019-07-24 07:26] LABS: Eosinophils % (A) 33 %
[2019-07-24 07:41] LABS: Glucose,Whole Blood 200 mg/dL (75-99)
[2019-07-24 08:37] LABS: Erythrocyte Sedimentation Rate 5 mm/hr (0-15)
[2019-07-24] MEDS: INSULIN DETEMIR (LEVEMIR) 100 UNIT/ML SYR SQ SCH (08:38)
[2019-07-24] MEDS: INSULIN ASPART (NovoLOG) 100 UNIT/ML VIAL SQ SCH ×7 (08:39→20:14)
[2019-07-24] MEDS: FLUoxetine HCL 20 MG CAP PO SCH (08:40)
[2019-07-24] MEDS: GABAPENTIN 300 MG CAP PO SCH ×2 (08:40→21:07)
[2019-07-24] MEDS: buPROPion SR 100 MG TABLET.ER PO SCH (08:40)
[2019-07-24 10:24] LABS: Ferritin 62.9 ng/mL (22.0-322.0)
[2019-07-24 10:51] LABS: % Iron Saturation 26.87 (15.00-50.00)
--- NOTE | 2019-07-24 11:12 | P.PN ---
Progress Note - Text Progress Note Date: 07/24/19 Interval history: Patient is seen in cross coverage today. He prefers to talk in his room as he is feeling very tired today. He reports that overall he is feeling better, relays he is still having some thoughts of harm to self but they are less frequent and he feels safe in the hospital. He does describe some vivid/bizarre dreams of the medication side effect. This seems to be tolerable. Mental status exam: Patient is seen in his room as he describes feeling very tired today. He does seem to describe overall feeling better. He continues to have some thoughts of harm to himself at times but these thoughts are less frequent and he feels safe in the hospital. He does not voice any thoughts of harm to others. No evidence of psychosis or agitation. Plan: Patient will be maintained on current psychotropic medication regimen. Continue to monitor regarding any thoughts of suicide. Continue to monitor his ongoing response to treatment for any medication side effects.
[2019-07-24 12:40] LABS: Glucose,Whole Blood 149 mg/dL (75-99)
[2019-07-24 17:33] LABS: Glucose,Whole Blood 83 mg/dL (75-99)
[2019-07-24 20:05] LABS: Glucose,Whole Blood 285 mg/dL (75-99)
[2019-07-24] MEDS: traZODone HCL 100 MG TAB PO SCH (21:07)
[2019-07-25 02:13] LABS: Glucose,Whole Blood 229 mg/dL (75-99)
[2019-07-25 07:53] LABS: Glucose,Whole Blood 204 mg/dL (75-99)
[2019-07-25] MEDS: INSULIN DETEMIR (LEVEMIR) 100 UNIT/ML SYR SQ SCH (08:30)
[2019-07-25] MEDS: INSULIN ASPART (NovoLOG) 100 UNIT/ML VIAL SQ SCH ×7 (08:31→20:26)
[2019-07-25] MEDS: FLUoxetine HCL 20 MG CAP PO SCH (08:32)
[2019-07-25] MEDS: buPROPion SR 100 MG TABLET.ER PO SCH (08:32)
[2019-07-25] MEDS: GABAPENTIN 300 MG CAP PO SCH ×3 (08:32→21:27)
--- NOTE | 2019-07-25 09:48 | P.PN ---
Progress Note - Text Progress Note Date: 07/25/19 Interval history: Patient is seen in cross coverage in today. He is found in his room lying in bed. He relates that he does not want to meet with me today, relays that he is tired and his stomach hurts. Mental status exam: He is found in his room lying in bed. He relates he does not wish to meet with me today. Relays that he is tired in his stomach hurts. He does not show any agitation. Plan: Patient will be maintained on current psychotropic medication regimen. Continue to monitor for any medication side effects and monitor his ongoing response to treatment.
[2019-07-25 12:40] LABS: Glucose,Whole Blood 139 mg/dL (75-99)
[2019-07-25] MEDS: MAG HYDROX/AL HYDROX/SIMETH 30 ML CUP PO PRN (13:39)
[2019-07-25 17:08] LABS: Glucose,Whole Blood 91 mg/dL (75-99)
[2019-07-25 17:44] LABS: Glucose,Whole Blood 96 mg/dL (75-99)
[2019-07-25 20:17] LABS: Glucose,Whole Blood 154 mg/dL (75-99)
[2019-07-25] MEDS: traZODone HCL 100 MG TAB PO SCH (21:26)
[2019-07-25] MEDS: LORazepam 1 MG TAB PO PRN (21:30)
[2019-07-26 02:17] LABS: Glucose,Whole Blood 196 mg/dL (75-99)
[2019-07-26 08:11] LABS: Glucose,Whole Blood 255 mg/dL (75-99)
[2019-07-26] MEDS: INSULIN ASPART (NovoLOG) 100 UNIT/ML VIAL SQ SCH ×7 (09:17→20:45)
[2019-07-26] MEDS: INSULIN DETEMIR (LEVEMIR) 100 UNIT/ML SYR SQ SCH (09:18)
[2019-07-26] MEDS: FLUoxetine HCL 20 MG CAP PO SCH (09:19)
[2019-07-26] MEDS: buPROPion SR 100 MG TABLET.ER PO SCH (09:19)
--- NOTE | 2019-07-26 10:20 | P.PN ---
Progress Note - Text Progress Note Date: 07/26/19 Interval History: Patient was seen laying down on the chair during group and was directable and agreeable to speak to bond writer in the office. Patient continues to state that he feels tired during the day however also claims that his anxiety has been getting worse. He states that since Friday he started taking the Wellbutrin he feels more anxious and "antsy". Patient claims that his mood is still depressed and he has fleeting thoughts of suicidal ideations however no one intent or plan. Patient contracts to safety at this time and was preoccupied about his medical problems. He states that he feels the Prozac is not helping him any longer and is agreeable to have the medication changed. He claims that he asked for an Ativan yesterday to help him go to sleep. He spoke about continuing to have diarrhea which has gotten worse over the past few days and states that it happens every time after he eats. He states that he has been trying to go to groups and participate as best as he can work on coping skills. Admits to fair appetite. At this time patient denies any homical ideations, intent or plan. Patient denies any auditory, visual hallucinations and denies any paranoia or delusions. Patient denies any side effects from the medications and has been compliant with meds. Mental Status Exam: General Appearance: Patient appears to be stated age is alert, directable, and attempts to cooperate. Patient appears to have poor hygiene and grooming. Behavior: Patient is seated without any agitated behavior. Attempts to cooperate. Speech: Patient's speech is fluent and nonpressured. Soft tone. Mood/Affect: Patient reports their mood is mildly improving, affect is congruent Suicidality/Homicidality: Patient denies having any homicidal ideation intent or plan. He denies any suicidal ideations and no intent or plan. Perceptions: Patient denies any visual hallucinations and denies any auditory hallucinations Though content/process: There is no evidence of any delusional thought content and thought process is linear and goal-directed. Preoccupied with his medical condition. Memory and concentration: AOX3, grossly intact for the purposes of this session. Judgment and insight: poor, mildly improving. Assessment Major depressive disorder, without psychotic features Anxiety disorder and specified Cannabis abuse History of stimulant abuse. Plan: -Patient continues to meet criteria for inpatient psychiatric admission for symptom stabilization and safety. Patient has signed adult voluntary form and medication consent and was placed in patient's chart. -Medications: We'll continue with trazodone 300 mg daily at bedtime for insomnia/mood, discontinue Prozac at this time due to ineffectiveness and possible side effects along with Wellbutrin will be discontinued. We will likely start patient on Effexor XR in the next day or two. Started use part 10 mg twice a day for anxiety. -When necessary Ativan and Geodon for agitation/aggression. -Will order CBC with differential tomorrow a.m to check for any changes with white blood cell count. Patient's diarrhea continues to be persistent and will contact Dr. Valenzuela and also placed GI consult. -NRT -not needed as patient does not smoke -SW on board for discharge planning. Encourage patient to participate in groups to work on coping skills.
[2019-07-26] MEDS: busPIRone HCl 10 MG TAB PO SCH ×2 (10:22→20:45)
[2019-07-26 10:52] LABS: ANA Pattern Speckled
[2019-07-26 12:56] LABS: Glucose,Whole Blood 124 mg/dL (75-99)
[2019-07-26] MEDS: DICYCLOMINE 10 MG CAP PO SCH (17:53)
[2019-07-26] MEDS: MAG HYDROX/AL HYDROX/SIMETH 30 ML CUP PO PRN (17:54)
[2019-07-26 18:04] LABS: Glucose,Whole Blood 138 mg/dL (75-99)
[2019-07-26 20:13] LABS: Glucose,Whole Blood 159 mg/dL (75-99)
[2019-07-26] MEDS: GABAPENTIN 300 MG CAP PO SCH (20:45)
[2019-07-26] MEDS: traZODone HCL 100 MG TAB PO SCH (20:45)
[2019-07-26] MEDS: TRIAMCINOLONE 0.1% CREAM 80 GM TUBE TOPICAL PRN (20:47)
[2019-07-26] MEDS: LORazepam 1 MG TAB PO PRN (20:49)
[2019-07-27 02:12] LABS: Glucose,Whole Blood 204 mg/dL (75-99)
--- NOTE | 2019-07-27 07:13 | P.CONS ---
History of Present Illness - Reason for Consult Consult date: 07/26/19 Diarrhea Requesting physician: Brown Valenzuela - Chief Complaint Depression - History of Present Illness 23-year-old male with multiple medical comorbidities including diabetes mellitus with multiple episodes of hyperglycemia/DKA in the past, major depression and chronic diarrhea who presented to the hospital due to depression and suicidal ideations. Currently the patient is being managed on the psychiatric floor. The GI service was consult to see the patient due to concerns over diarrhea. The patient reports loose bowel movements over the past 1 year. He feels he is a bit worse over the past few weeks. He reports an average having 4-5 bowel movements daily. Bowel movements are usually after eating and with associated urgency. He denies any gross abdominal pain but does report some uncomfortable feeling and achiness in his lower abdomen prior to bowel movements. He denies any new medications or other triggers prior to developing the worsening of his symptoms. Laboratory evaluation significant for WBC 16.2, hemoglobin 13.7 and platelet count 323,000. No endoscopic evaluation in the past. Review of Systems REVIEW OF SYSTEMS: CONSTITUTIONAL: Denies any fevers, chills, weight change or fatigue. CARDIOVASCULAR: Denies any chest pain, palpitations high or low blood pressures RESPIRATORY: Denies any shortness of breath, hemoptysis or cough. GENITOURINARY: No dysuria or hematuria. MUSCULOSKELETAL: No weakness reported. SKIN: Denies any new rashes or lesions, jaundice or pallor. PSYCHIATRIC: Currently receiving treatment for depression with suicidal ideation. NEUROLOGY: Denies headache, denies any new focal deficits. EARS/NOSE/THROAT: No recent hearing change, congestion, nasal discharge or sore throat. EYES: No pain in eyes, discharge or change in vision. GASTROINTESTINAL: As per HPI. Past Medical History Past Medical History: Asthma, Diabetes Mellitus, Skin Disorder Additional Past Medical History / Comment(s): , insulin dependent diabetes oral apraxia; previous suicidal attempts anxiety/depression, previous hospital physicians for DKA,gastroparesis. History of Any Multi-Drug Resistant Organisms: None Reported Past Surgical History: Adenoidectomy Additional Past Surgical History / Comment(s): 2002 Past Anesthesia/Blood Transfusion Reactions: No Reported Reaction Past Psychological History: Anxiety, Depression Additional Psychological History / Comment(s): Feeling depressed almost every day Smoking Status: Former smoker Past Alcohol Use History: None Reported Additional Past Alcohol Use History / Comment(s): Started smoking at age 15, quit age 19. Past Drug Use History: None Reported Additional Drug Use History / Comment(s): PT STATED HE IS SLOWING DOWN ON USE OF MARIJUANA AND LAST USED 01/16/19 - Past Family History Mother Family Medical History: CVA/TIA Father Family Medical History: Hyperlipidemia, Hypertension Additional Family Medical History / Comment(s): . Medications and Allergies Home Medications Medication Instructions Recorded Confirmed Type Gabapentin [Neurontin] 300 mg PO QAM 05/11/19 07/21/19 History Gabapentin [Neurontin] 600 mg PO HS 05/11/19 07/21/19 History traZODone HCL [Desyrel] 300 mg PO HS 06/16/19 07/21/19 History Triamcinolone 0.1% Cream [Kenalog 1 applic TOPICAL QID PRN 07/15/19 07/21/19 History 0.1% Cream] Insulin Glargine,Hum.rec.anlog 50 unit SQ HS #1 pen 07/17/19 07/21/19 Rx [Basaglar Kwikpen U-100] Insulin Lispro [Admelog] 15 units SQ AC-TID #1 vial 07/17/19 07/21/19 Rx Allergies Allergy/AdvReac Type Severity Reaction Status Date / Time No Known Allergies Allergy Verified 07/21/19 11:39 Physical Exam Vitals: Vital Signs Temp Pulse Resp BP 07/26/19 06:55 97.7 F 92 12 109/60 On physical examination, patient appears comfortable in no apparent distress. HEAD: Normocephalic, atraumatic. EYES: No scleral icterus. No conjunctival injection. MOUTH: No lesions, tongue midline. NECK: Trachea midline, no gross abnormalities. CHEST: Clear to auscultation with no wheezing or rhonchi appreciated. HEART: Regular rate and rhythm. ABDOMEN: Soft, thin and nontender to palpation. Bowel sounds are positive. No organomegaly. No guarding or rigidity. EXTREMITIES: No pedal edema. SKIN: No rashes, no jaundice. NEUROLOGIC: Alert and oriented x3. No focal deficits. Results CBC & Chem 7: 07/24/19 06:53 07/19/19 08:33 Labs: Abnormal Lab Results - Last 24 Hours (Table) 07/25/19 07/26/19 07/26/19 Range/Units 20:16 02:12 08:09 POC Glucose (mg/dL) 154 H 196 H 255 H (75-99) mg/dL 07/26/19 Range/Units 12:53 POC Glucose (mg/dL) 124 H (75-99) mg/dL Assessment and Plan (1) Chronic diarrhea Narrative/Plan: 23-year-old male with multiple medical comorbidities currently admitted to the psychiatric floor for treatment of depression with suicidal ideation. He reports chronic diarrhea over the past one year worse over the past few weeks. He reports bowel movements in association with eating with associated urgency occurring approximate 4-5 times per day. No blood per rectum at nighttime symptoms. He does have some achiness in his lower abdomen prior to bowel movements. Unknown etiology with plan to rule out infectious source although this is less likely given chronicity of symptoms, may be related to functional bowel disorder, neuropathy related to diabetes mellitus, bacterial overgrowth or other etiology. Current Visit: Yes Status: Acute Code(s): K52.9 - NONINFECTIVE GASTROENTERITIS AND COLITIS, UNSPECIFIED SNOMED Code(s): 818161652 Plan: Supportive care Okay for diet Stool studies ordered Celiac testing ordered Bentyl ordered before meals to help with urgency of bowel movements Continue to follow symptomatically No plans for endoscopy at this time Thank you for allowing us to assist patient in the care of the patient we will continue to follow
[2019-07-27 07:57] LABS: Glucose,Whole Blood 200 mg/dL (75-99)
[2019-07-27] MEDS: INSULIN ASPART (NovoLOG) 100 UNIT/ML VIAL SQ SCH ×7 (07:57→20:43)
[2019-07-27] MEDS: DICYCLOMINE 10 MG CAP PO SCH ×3 (07:57→17:38)
[2019-07-27] MEDS: busPIRone HCl 10 MG TAB PO SCH (07:58)
[2019-07-27] MEDS: GABAPENTIN 300 MG CAP PO SCH ×2 (07:58→20:45)
[2019-07-27] MEDS: INSULIN DETEMIR (LEVEMIR) 100 UNIT/ML SYR SQ SCH (07:58)
[2019-07-27 09:44] LABS: Basophils # (A) 0.1 k/uL (0-0.2); Basophils % (A) 1 %; Eosinophils # (A) 4.7 k/uL (0-0.7); Eosinophils % (A) 30 %; HCT 43.7 % (39.0-53.0); HGB 14.3 gm/dL (13.0-17.5); Lymphocytes % (A) 19 %; MCH 30.2 pg (25.0-35.0); MCHC 32.7 g/dL (31.0-37.0); MCV 92.3 fL (80.0-100.0); Mean Platelet Volume 6.9; Monocytes % (A) 7 %; Neutrophils # (A) 6.4 k/uL (1.3-7.7); Neutrophils % (A) 41 %; Platelet Count 389 k/uL (150-450); RBC 4.73 m/uL (4.30-5.90); WBC 15.4 k/uL (3.8-10.6)
[2019-07-27 09:59] LABS: African American GFR (CKD) >90 (>60 ml/min/1.73 sqM); Anion Gap 7 mmol/L; Blood Urea Nitrogen 23 mg/dL (9-20); Carbon Dioxide 30 mmol/L (22-30); Chloride 101 mmol/L (98-107); Glucose 202 mg/dL (74-99); Non-African American GFR(CKD) >90 (>60 ml/min/1.73 sqM); Sodium 138 mmol/L (137-145)
--- NOTE | 2019-07-27 11:31 | P.PN ---
Progress Note - Text Progress Note Date: 07/27/19 Interval History: Patient was seen laying down in his bed and was directable and was difficult to awaken and states that he wants to lay in bed and would prefer talking in his room today. Patient claims that he slept throughout the night and is continuing to feel tired during the morning and apologized to production underwriter about not wanting to leave his room at this time. He states that he is continuing to feel depressed and have anxiety. He states that the BuSpar is only helped mildly with anxiety. He states that he was visited by the GI doctor yesterday and claims that the diarrhea has been going on for several months to a year and states that the current plan will be to check to see if he has celiac's disease. He states that he is continuing to have fleeting thoughts of suicide however no intent or plan at this time and contracts to safety. He claims that he asked for an Ativan yesterday to help him go to sleep and prefers to have his trazodone cut down. He spoke about continuing to have diarrhea and has not noticed any changes and we will be giving stool samples today for analysis. He states that he has been trying to go to groups and participate as best as he can work on coping skills when he has energy. At this time patient denies any homical ideations, intent or plan. Patient denies any auditory, visual hallucinations and denies any paranoia or delusions. Patient denies any side effects from the medications and has been compliant with meds. Mental Status Exam: General Appearance: Patient appears to be stated age is alert, directable, and attempts to cooperate, difficult to awaken this morning. Patient appears to have poor hygiene and grooming. Behavior: Patient is seated without any agitated behavior. Attempts to cooperate. Speech: Patient's speech is fluent and nonpressured. Soft tone. Mood/Affect: Patient reports their mood is depressed, affect is congruent and constricted Suicidality/Homicidality: Patient denies having any homicidal ideation intent or plan. He denies any suicidal ideations and no intent or plan. Perceptions: Patient denies any visual hallucinations and denies any auditory hallucinations Though content/process: There is no evidence of any delusional thought content and thought process is linear and goal-directed. Preoccupied with his medical conditions. Memory and concentration: AOX3, grossly intact for the purposes of this session. Judgment and insight: poor, mildly improving. Assessment Major depressive disorder, without psychotic features Anxiety disorder and specified Cannabis abuse History of stimulant abuse. Plan: -Patient continues to meet criteria for inpatient psychiatric admission for symptom stabilization and safety. Patient has signed adult voluntary form and medication consent and was placed in patient's chart. -Medications: We'll decrease trazodone 200 mg daily at bedtime for insomnia/mood, we'll start Effexor XR 37.5 mg daily for depression/anxiety. Increased BuSpar to 15 mg twice a day for anxiety. -When necessary Ativan and Geodon for agitation/aggression. We'll consider decreasing Ativan tomorrow if patient is continuing to feel groggy in the morning. -CBC this morning shows continued elevation in patient's white count and eosinophilia. Patient's diarrhea continues to be persistent and appreciate GI recommendations were currently following a long. GI currently believes that patient's diarrhea may be likely secondary to functional bowel disorder, neuropathy related to diabetes mellitus or bacterial overgrowth. Celiac's blood work ordered and currently pending along with stool culture and C. diff. -NRT -not needed as patient does not smoke -SW on board for discharge planning. Encourage patient to participate in groups to work on coping skills.
[2019-07-27 12:03] LABS: Glucose,Whole Blood 68 mg/dL (75-99)
[2019-07-27 12:42] LABS: Glucose,Whole Blood 132 mg/dL (75-99)
[2019-07-27] MEDS: MAG HYDROX/AL HYDROX/SIMETH 30 ML CUP PO PRN ×2 (13:36→17:38)
[2019-07-27 17:36] LABS: Glucose,Whole Blood 123 mg/dL (75-99)
[2019-07-27 18:08] LABS: Gliadin AB IgA, Deaminated NEGATIVE (NEGATIVE); Gliadin AB IgA, Unit <0.2 U/mL; Gliadin AB IgG, Deaminated NEGATIVE (NEGATIVE)
[2019-07-27 20:05] LABS: Glucose,Whole Blood 163 mg/dL (75-99)
[2019-07-27] MEDS: busPIRone HCl 5 MG TAB PO SCH (20:42)
[2019-07-27] MEDS: traZODone HCL 100 MG TAB PO SCH (20:43)
[2019-07-27] MEDS: LORazepam 1 MG TAB PO PRN (20:46)
[2019-07-28 02:03] LABS: Glucose,Whole Blood 225 mg/dL (75-99)
[2019-07-28 07:48] LABS: Glucose,Whole Blood 281 mg/dL (75-99)
[2019-07-28] MEDS: INSULIN DETEMIR (LEVEMIR) 100 UNIT/ML SYR SQ SCH (08:02)
[2019-07-28] MEDS: INSULIN ASPART (NovoLOG) 100 UNIT/ML VIAL SQ SCH ×7 (08:03→20:17)
[2019-07-28] MEDS: DICYCLOMINE 10 MG CAP PO SCH ×3 (08:58→17:22)
[2019-07-28] MEDS: busPIRone HCl 5 MG TAB PO SCH (08:59)
[2019-07-28] MEDS: GABAPENTIN 300 MG CAP PO SCH ×2 (08:59→20:41)
[2019-07-28] MEDS ORDERED: VENLAFAXINE HCL ER 37.5 MG CAP PO SCH (09:00)
--- NOTE | 2019-07-28 09:45 | P.PN ---
Progress Note - Text Progress Note Date: 07/28/19 Interval History: Patient was seen laying down in his bed and was directable and agreeable to sp eak to personal lines underwriter in the office. Patient claims that he slept throughout the night last night and states that he was not awoken by having to go to the bathroom and states that his diarrhea has decreased in frequency. He states that he has not gone this morning. He continues to mention that his neuropathic pain in his feet have gotten worse. Patient states that his depression has been getting better slowly and has just taken his Effexor first dose today. Patient is agreeable to continue having this medication increased. He states that the BuSpar is helping mildly with anxiety. He states that he is continuing to have fleeting thoughts of suicide however no intent or plan at this time and states that the thoughts have been decreasing. Patient states that he is being more "focused on the future" and also states that he has been trying to go to groups and participate as best as he can. At this time patient denies any homical ideations, intent or plan. Patient denies any auditory, visual hallucinations and denies any paranoia or delusions. Patient denies any side effects from the medications and has been compliant with meds. Mental Status Exam: General Appearance: Patient appears to be stated age is alert, directable, and attempts to cooperate, less lethargic this morning. Patient appears to have poor hygiene and grooming. Behavior: Patient is seated without any agitated behavior. Attempts to cooperate. Speech: Patient's speech is fluent and nonpressured. Mood/Affect: Patient reports their mood is depressed, affect is congruent and constricted Suicidality/Homicidality: Patient denies having any homicidal ideation intent or plan. He is admitting to fleeting suicidal ideations however no intent or plan. Perceptions: Patient denies any visual hallucinations and denies any auditory hallucinations Though content/process: There is no evidence of any delusional thought content and thought process is linear and goal-directed. Memory and concentration: AOX3, grossly intact for the purposes of this session. Judgment and insight: poor, mildly improving. Assessment Major depressive disorder, without psychotic features Anxiety disorder and specified Cannabis abuse History of stimulant abuse. Plan: -Patient continues to meet criteria for inpatient psychiatric admission for symptom stabilization and safety. Patient has signed adult voluntary form and medication consent and was placed in patient's chart. -Medications: We'll continue with trazodone 200 mg daily at bedtime for insomnia/mood. Continue with Effexor XR 37.5 mg daily for depression/anxiety, patient already has an order for Effexor to be increased to 75 mg starting Friday morning and can be further titrated up over the weekend if necessary. Increased BuSpar to 20 mg twice a day for anxiety. I spoke in depth with patient about the risks of starting Zyprexa or Seroquel for sleep and at this time it is not a good idea given patient's diabetes and poor blood glucose control. -When necessary Ativan and Geodon for agitation/aggression. -GI currently following a long, appreciate recommendations, patient's diarrhea may be likely secondary to functional bowel disorder, neuropathy related to diabetes mellitus or bacterial overgrowth. Celiac's blood work was negative and C. diff negative as well. Patient currently on dicyclomine for GI symptoms. -NRT -not needed as patient does not smoke -SW on board for discharge planning. Encourage patient to participate in groups to work on coping skills. Likely discharge early next week.
[2019-07-28 12:45] LABS: Glucose,Whole Blood 134 mg/dL (75-99)
[2019-07-28 17:26] LABS: Glucose,Whole Blood 93 mg/dL (75-99)
[2019-07-28 18:17] LABS: Glucose,Whole Blood 198 mg/dL (75-99)
[2019-07-28 20:02] LABS: Glucose,Whole Blood 134 mg/dL (75-99)
[2019-07-28] MEDS: traZODone HCL 100 MG TAB PO SCH (20:41)
[2019-07-28] MEDS: busPIRone HCl 10 MG TAB PO SCH (20:41)
[2019-07-28] MEDS: LORazepam 1 MG TAB PO PRN (20:42)
[2019-07-29 07:50] LABS: Glucose,Whole Blood 257 mg/dL (75-99)
[2019-07-29] MEDS: INSULIN ASPART (NovoLOG) 100 UNIT/ML VIAL SQ SCH ×7 (08:37→20:17)
[2019-07-29] MEDS: INSULIN DETEMIR (LEVEMIR) 100 UNIT/ML SYR SQ SCH (08:37)
[2019-07-29] MEDS: GABAPENTIN 300 MG CAP PO SCH ×2 (08:38→20:19)
[2019-07-29] MEDS: busPIRone HCl 10 MG TAB PO SCH ×2 (08:38→20:20)
[2019-07-29] MEDS: DICYCLOMINE 10 MG CAP PO SCH ×3 (08:38→17:26)
[2019-07-29] MEDS ORDERED: VENLAFAXINE HCL ER 37.5 MG CAP PO SCH (09:00)
[2019-07-29 12:39] LABS: Glucose,Whole Blood 155 mg/dL (75-99)
--- NOTE | 2019-07-29 13:02 | PN ---
PROGRESS NOTE DATE OF SERVICE: 07/29/2019 CHIEF COMPLAINT: The patient was depressed. He had suicide thoughts. He continues to struggle with managing his diabetes as a major stress factor. INTERVAL HISTORY: Patient has been doing fair. He had a quiet evening last night. He attends groups and is appropriate with groups. He does tend to keep to himself, though he does come out in the day area. He will interact a little with others. He generally has a quiet manner on the unit. He slept well last night. Today he has been up. He did not attend group this morning. He notes that his medications seem to be helping. He says that his Neurontin was increased for neuropathic pain and that has seemed to help some. He notes that real issues that he has been having has been a little less. He still has a fairly withdrawn constricted manner, though he does seem to be showing improvement in terms of being able to interact with others. He is not reporting any issues of thought disorder. He has not had problems with the start up of Effexor and tolerates his psychotropic medications. MENTAL STATUS: Patient sat with some restlessness. He gave fair eye contact. He was somewhat slowed in psychomotor activity. He spoke in a soft, somewhat monotone voice. He answered questions appropriately. He did not say much. He was not spontaneous or interactive. He tended to answer with 1 or 2 word responses to most questions. His affect was blunted. His mood reserved. He did not seem to be significantly distressed. There was no outward evidence of thought disorder. Cognition was clear. It was noted that he did smile occasionally during the interview. ASSESSMENT: I will continue the current diagnosis and treatment plan. We will continue to engage the patient in individual and group therapeutic activities. He will continue Effexor. The dose will be increased tomorrow to 75 mg a day. I discussed indications for his medication and potential side effects. We discussed discharge planning issues. He indicates that he has a stable living situation living with friends in the community. 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 We also talked about his completing his high school diploma. He was given a handout in regards to resources. We will focus on stabilization and discharge planning. MMODL / IJN: [id number] /
[2019-07-29] MEDS: TRIAMCINOLONE 0.1% CREAM 80 GM TUBE TOPICAL PRN (15:08)
[2019-07-29 17:36] LABS: Glucose,Whole Blood 80 mg/dL (75-99)
[2019-07-29 18:26] LABS: Glucose,Whole Blood 149 mg/dL (75-99)
[2019-07-29 19:51] LABS: Glucose,Whole Blood 272 mg/dL (75-99)
[2019-07-29] MEDS: LORazepam 1 MG TAB PO PRN (20:19)
[2019-07-29] MEDS: traZODone HCL 100 MG TAB PO SCH (20:20)
--- NOTE | 2019-07-30 06:31 | P.PN ---
Subjective Progress Note Date: 07/29/19 Principal diagnosis: Diarrhea Patient is seen reporting improvement of bowel movements however still having some frequency of loose bowel movements. Objective - Vital Signs Vital signs: Vital Signs Temp 97.9 F 07/29/19 06:43 Pulse 96 07/29/19 06:43 Resp 15 07/28/19 05:42 BP 130/73 07/29/19 06:43 Pulse Ox 97 07/29/19 06:43 - Exam On physical examination, patient appears comfortable in no apparent distress. HEAD: Normocephalic, atraumatic. EYES: No scleral icterus. No conjunctival injection. MOUTH: No lesions, tongue midline. NECK: Trachea midline, no gross abnormalities. ABDOMEN: Soft, thin. Bowel sounds are positive. No organomegaly. No guarding or rigidity. EXTREMITIES: No pedal edema. SKIN: No rashes, no jaundice. NEUROLOGIC: Alert and oriented x3. No focal deficits. - Labs CBC & Chem 7: 07/27/19 07:50 07/27/19 07:50 Labs: Abnormal Lab Results - Last 24 Hours (Table) 07/28/19 07/28/19 07/29/19 Range/Units 18:15 19:51 07:47 POC Glucose (mg/dL) 198 H 134 H 257 H (75-99) mg/dL 07/29/19 Range/Units 12:36 POC Glucose (mg/dL) 155 H (75-99) mg/dL Assessment and Plan (1) Chronic diarrhea Narrative/Plan: 23-year-old male with multiple medical comorbidities currently admitted to the psychiatric floor for treatment of depression with suicidal ideation. He reports chronic diarrhea over the past one year worse over the past few weeks. He reports bowel movements in association with eating with associated urgency occurring approximate 4-5 times per day. No blood per rectum at nighttime symptoms. He does have some achiness in his lower abdomen prior to bowel movements. Unknown etiology with plan to rule out infectious source although this is less likely given chronicity of symptoms, may be related to functional bowel disorder, neuropathy related to diabetes mellitus, bacterial overgrowth or other etiology. Testing for Clostridium difficile negative and testing for celiac disease negative. Patient has had some improvement with treatment for functional bowel disorder. Current Visit: Yes Status: Acute Code(s): K52.9 - NONINFECTIVE GASTROENTERITIS AND COLITIS, UNSPECIFIED SNOMED Code(s): 363422090 Plan: Supportive care Okay for diet Stool studies negative Celiac testing negative Bentyl ordered before meals to help with urgency of bowel movements, we'll increase to 20 mg 3 times a day before meals meals Continue to follow symptomatically No plans for endoscopy at this time Thank you for allowing us to assist patient in the care of the patient, the GI service will stand by, please call back with any questions or concerns
[2019-07-30 08:07] LABS: Glucose,Whole Blood 211 mg/dL (75-99)
[2019-07-30] MEDS: INSULIN DETEMIR (LEVEMIR) 100 UNIT/ML SYR SQ SCH (08:13)
[2019-07-30] MEDS: INSULIN ASPART (NovoLOG) 100 UNIT/ML VIAL SQ SCH ×7 (08:14→20:17)
[2019-07-30] MEDS: GABAPENTIN 300 MG CAP PO SCH ×2 (08:14→20:20)
[2019-07-30] MEDS: DICYCLOMINE 10 MG CAP PO SCH ×3 (08:15→17:50)
[2019-07-30] MEDS: busPIRone HCl 10 MG TAB PO SCH ×2 (08:15→20:20)
[2019-07-30] MEDS: VENLAFAXINE HCL ER 75 MG CAP PO SCH (08:15)
--- NOTE | 2019-07-30 10:36 | PN ---
PROGRESS NOTE DATE OF SERVICE: 07/30/2019 CHIEF COMPLAINT: The patient was depressed. He had suicide thoughts. He continues to struggle with managing his diabetes as a major stress factor. INTERVAL HISTORY: The patient has been doing fair. He did not note any issues or difficulties that came up yesterday. He has been doing somewhat better in terms of blood sugar management. He will attend some groups and not others. He slept fairly well last night. Today he has been up, he comes out in the day area. Tends to have a quiet manner. He does interact some with others. He attended group this morning. He had no complaints in regard to any aspects of treatment. He was seen by Dr. Elias in regards to GI issues and was noted to still be having some frequency of loose bowels. I refer the reader to Dr. Elias's consult note for details. The patient has had generally a quiet mood. He interacts appropriately. He tolerates his psychotropic medications. MENTAL STATUS: Patient was a little bit slowed in psychomotor activity. Speech was appropriate. He answered questions with brief responses. His thoughts were clear. His affect was a little constricted. His mood was quiet. He smiled just a little. He had a calm manner. He did not appear to be significantly distressed. There was no outward evidence of thought disorder. Cognition was clear. ASSESSMENT: I will continue the current diagnosis and treatment plan. Psychotropic medications will continue the same with the plan to increase in Effexor to 75 mg today. I reviewed medication issues with the patient. He has not had any problems of the start of Effexor. Will continue to focus on stabilization and discharge planning. MMODL / IJN: [id number] /
[2019-07-30 12:40] LABS: Glucose,Whole Blood 185 mg/dL (75-99)
[2019-07-30 15:25] LABS: Glucose,Whole Blood 91 mg/dL (75-99)
[2019-07-30 16:13] LABS: Glucose,Whole Blood 104 mg/dL (75-99)
[2019-07-30 17:40] LABS: Glucose,Whole Blood 113 mg/dL (75-99)
[2019-07-30 19:59] LABS: Glucose,Whole Blood 217 mg/dL (75-99)
[2019-07-30] MEDS: traZODone HCL 100 MG TAB PO SCH (20:20)
[2019-07-30] MEDS: LORazepam 1 MG TAB PO PRN (20:21)
[2019-07-31 07:42] LABS: Glucose,Whole Blood 222 mg/dL (75-99)
[2019-07-31] MEDS: busPIRone HCl 10 MG TAB PO SCH ×2 (07:53→22:20)
[2019-07-31] MEDS: GABAPENTIN 300 MG CAP PO SCH ×2 (07:53→22:21)
[2019-07-31] MEDS: DICYCLOMINE 10 MG CAP PO SCH ×3 (07:53→17:52)
[2019-07-31] MEDS: VENLAFAXINE HCL ER 75 MG CAP PO SCH (07:53)
[2019-07-31] MEDS: INSULIN ASPART (NovoLOG) 100 UNIT/ML VIAL SQ SCH ×7 (07:54→20:34)
[2019-07-31] MEDS: INSULIN DETEMIR (LEVEMIR) 100 UNIT/ML SYR SQ SCH (07:54)
[2019-07-31 12:03] LABS: Glucose,Whole Blood 103 mg/dL (75-99)
[2019-07-31 12:38] LABS: Glucose,Whole Blood 77 mg/dL (75-99)
--- NOTE | 2019-07-31 13:45 | P.PN ---
Progress Note - Text Progress Note Date: 07/31/19 Subjective: Patient was seen today as a cross coverage for . The patient was evaluated, chart reviewed, case discussed with the treatment team. Patient reported good sleep, and according to chart review patient slept about 7 hours last night. Appetite was reported as " better". Patient has been going to groups and other unit activities. The patient is compliant with his medications and denies any adverse reactions. Patient reports feeling better with a stabilization of his mood and he denies feeling depressed or suicidal. He denies any manic symptoms, hallucinations, paranoid ideation, and no delusions could be elicited. Patient reports feeling ready for discharge and he has been by his primary team that he could be discharged on Friday. Objective: Vitals has been reviewed. Mental status examination: Appearance: The patient appears stated age, adequately groomed and dressed, no specific features. Gait/posture: Normal gait, Normal arm swinging: No abnormal movements. Attitude and behavior: engaged, cooperative, eye contact. Motor activity: Normal psychomotor activity Speech: Normal rate, tone. Mood: Anxious Affect: Constricted Thought form: goal-directed, linear, coherent. Thought content: Non-delusional, denies suicidal thoughts, denies homicidal thoughts, denies intentions or plans. Perception: Denies any auditory or visual hallucinations Attention: No impairment. Orientation: Patient patient was fully oriented to time place person and si tuation. Insight: Patient has fair insight about his psychiatric disorder. Judgment: Patient has fair judgment about his psychiatric treatment. Assessment: Major depressive disorder, recurrent, severe without psychotic features. Plan: Continue inpatient level of care due to need for further stabilization and discharge planning provide psychiatric education regarding his diagnosis and treatment options Precautions: Continue 15 minutes check for safety. Consider medical consultation if any acute medical issues arise. Provide the patient individual, group therapy, substance use disorder counseling to give better insight and learn coping skills. Medications: Continue BuSpar 20 mg twice daily for anxiety. Continue Effexor 75 mg daily for depression and anxiety. Continue trazodone 200 mg at bedtime to help with depression and for insomnia. Continue nonpsychiatric medications including insulin, and Neurontin as per medical team recommendations. Discharge patient to OUTPATIENT services upon a stabilization
[2019-07-31 17:43] LABS: Glucose,Whole Blood 50 mg/dL (75-99)
[2019-07-31 18:08] LABS: Glucose,Whole Blood 79 mg/dL (75-99)
[2019-07-31 20:11] LABS: Glucose,Whole Blood 315 mg/dL (75-99)
[2019-07-31] MEDS: traZODone HCL 100 MG TAB PO SCH (22:20)
[2019-07-31] MEDS: LORazepam 1 MG TAB PO PRN (22:22)
[2019-08-01 03:06] LABS: Glucose,Whole Blood 273 mg/dL (75-99)
[2019-08-01] MEDS: INSULIN DETEMIR (LEVEMIR) 100 UNIT/ML SYR SQ SCH (07:43)
[2019-08-01 07:44] LABS: Glucose,Whole Blood 220 mg/dL (75-99)
[2019-08-01] MEDS: DICYCLOMINE 10 MG CAP PO SCH ×3 (07:44→17:39)
[2019-08-01] MEDS: INSULIN ASPART (NovoLOG) 100 UNIT/ML VIAL SQ SCH ×7 (07:46→20:27)
[2019-08-01] MEDS: VENLAFAXINE HCL ER 75 MG CAP PO SCH (08:35)
[2019-08-01] MEDS: busPIRone HCl 10 MG TAB PO SCH ×2 (08:35→22:14)
[2019-08-01] MEDS: GABAPENTIN 300 MG CAP PO SCH ×2 (08:35→22:14)
[2019-08-01 12:34] LABS: Glucose,Whole Blood 119 mg/dL (75-99)
--- NOTE | 2019-08-01 12:53 | PN ---
PROGRESS NOTE DATE OF SERVICE: 08/01/2019. CHIEF COMPLAINT: Major depression and uncontrolled control diabetes. HISTORY OF PRESENT ILLNESS: This gentleman dropped his blood sugar and his Lantus will be cutback. However, his blood sugars are quite high the rest of the time. If they do not stabilize, his insulin regimen will be revamped. PHYSICAL EXAM: Otherwise unchanged with clear chest and normal heart sounds. IMPRESSION: Uncontrolled insulin-dependent type 1 diabetes mellitus. PLAN: Continue to monitor sugars and make adjustments as necessary. MMODL / IJN: [id number] /
--- NOTE | 2019-08-01 13:36 | P.PN ---
Progress Note - Text Progress Note Date: 08/01/19 Subjective: Patient was seen today as a cross coverage for . The patient was evaluated, chart reviewed, case discussed with the treatment team. Patient Reports continued to feel stable emotionally and he denies feeling depressed, hopeless, or suicidal. He denies any severe mood swings or anxiety symptoms. He denies any agitation or homicidal ideation. Patient denies any psychotic symptoms including hallucinations, paranoid ideation, denied delusions could be elicited, and he denies any manic symptoms including euphoric/irritable mood, or irrational behavior. Patient continued going to groups and other unit activities and taking his medications as prescribed was no side effects reported. He reports having diarrhea today which is related to his diagnosis of IBS, and he restarted on Bentyl by the medical team. Objective: Vitals has been reviewed. Mental status examination: Appearance: The patient appears stated age, adequately groomed and dressed, no specific features. Gait/posture: Normal gait, Normal arm swinging: No abnormal movements. Attitude and behavior: engaged, cooperative, eye contact. Motor activity: Normal psychomotor activity Speech: Normal rate, tone. Mood: "Fine" Affect: Constricted Thought form: goal-directed, linear, coherent. Thought content: Non-delusional, denies suicidal thoughts, denies homicidal thoughts, denies intentions or plans. Perception: Denies any auditory or visual hallucinations Attention: No impairment. Orientation: Patient was fully oriented to time place person and situation. Insight: Patient has fair insight about his psychiatric disorder. Judgment: Patient has fair judgment about his psychiatric treatment. Assessment: Major depressive disorder, recurrent, severe without psychotic features. Plan: Continue inpatient level of care due to need for further stabilization and discharge planning provide psychiatric education regarding his diagnosis and treatment options Precautions: Continue 15 minutes check for safety. Consider medical consultation if any acute medical issues arise. Provide the patient individual, group therapy, substance use disorder counseling to give better insight and learn coping skills. Medications: Continue BuSpar 20 mg twice daily for anxiety. Continue Effexor 75 mg daily for depression and anxiety. Continue trazodone 200 mg at bedtime to help with depression and for insomnia. Continue nonpsychiatric medications including insulin, and Neurontin as per medical team recommendations. Discharge patient to OUTPATIENT services upon a stabilization
[2019-08-01 15:37] LABS: Glucose,Whole Blood 59 mg/dL (75-99)
[2019-08-01 15:55] LABS: Glucose,Whole Blood 97 mg/dL (75-99)
[2019-08-01 17:39] LABS: Glucose,Whole Blood 204 mg/dL (75-99)
[2019-08-01 20:10] LABS: Glucose,Whole Blood 100 mg/dL (75-99)
[2019-08-01] MEDS: LORazepam 1 MG TAB PO PRN (22:14)
[2019-08-01] MEDS: traZODone HCL 100 MG TAB PO SCH (22:14)
[2019-08-02 02:06] LABS: Glucose,Whole Blood 142 mg/dL (75-99)
[2019-08-02 07:34] LABS: Glucose,Whole Blood 215 mg/dL (75-99)
[2019-08-02] MEDS: DICYCLOMINE 10 MG CAP PO SCH ×3 (07:38→17:57)
[2019-08-02] MEDS: INSULIN ASPART (NovoLOG) 100 UNIT/ML VIAL SQ SCH ×7 (08:44→20:21)
[2019-08-02] MEDS: INSULIN DETEMIR (LEVEMIR) 100 UNIT/ML SYR SQ SCH (08:44)
[2019-08-02] MEDS: busPIRone HCl 10 MG TAB PO SCH ×2 (08:45→22:04)
[2019-08-02] MEDS: VENLAFAXINE HCL ER 75 MG CAP PO SCH (08:45)
[2019-08-02] MEDS: GABAPENTIN 300 MG CAP PO SCH ×2 (08:45→22:04)
[2019-08-02] MEDS ORDERED: VENLAFAXINE HCL ER 75 MG CAP PO STA (09:49)
--- NOTE | 2019-08-02 09:59 | P.PN ---
Progress Note - Text Progress Note Date: 08/02/19 Interval History: Patient was seen laying down in his bed and was initially hesitant however lisandro ntually directable and agreeable to speak to typewriter ribbon winder in the office. Patient claims that he continues to have difficulties maintaining his sleep through the night. He states that he needs to be close to the bathroom just in case he needs to use it. He states that his diarrhea has been continuing to do better on dicyclomine. He states that he is continuing to improve overall in terms of his anxiety and mood however states that his energy level is still poor during the day and has only been taking part in some groups. Patient is agreeable to have his Effexor increased today. He states that the BuSpar is helping mildly with anxiety. He states that he is having less suicidal thoughts at this time and was more future oriented talking about his job. At this time patient denies any homical ideations, intent or plan. Patient denies any auditory, visual hallucinations and denies any paranoia or delusions. Patient denies any side effects from the medications and has been compliant with meds. Mental Status Exam: General Appearance: Patient appears to be stated age is alert, directable, and attempts to cooperate, lethargic this morning. Patient appears to have improving hygiene and grooming. Behavior: Patient is seated without any agitated behavior. Attempts to cooperate. Speech: Patient's speech is fluent and nonpressured. Mood/Affect: Patient reports their mood is improving mildly, affect is congruent and constricted Suicidality/Homicidality: Patient denies having any homicidal ideation intent or plan. He is admitting less suicidal ideations however no intent or plan. Perceptions: Patient denies any visual hallucinations and denies any auditory hallucinations Though content/process: There is no evidence of any delusional thought content and thought process is linear and goal-directed. Memory and concentration: AOX3, grossly intact for the purposes of this session. Judgment and insight: mildly improving. Assessment Major depressive disorder, without psychotic features Anxiety disorder and specified Cannabis abuse History of stimulant abuse. Plan: -Patient continues to meet criteria for inpatient psychiatric admission for symptom stabilization and safety. Patient has signed adult voluntary form and medication consent and was placed in patient's chart. -Medications: We'll continue with trazodone 200 mg daily at bedtime for insomnia/mood. Added melatonin 5 mg daily at bedtime for sleep. Increased Effexor XR 150 mg daily for depression/anxiety. Continue with BuSpar to 20 mg twice a day for anxiety. -When necessary Ativan and Geodon for agitation/aggression. -GI consultation, appreciate recommendations, patient's diarrhea may be likely secondary to functional bowel disorder, neuropathy related to diabetes mellitus or bacterial overgrowth. Celiac's blood work was negative and C. diff negative as well. Patient currently on dicyclomine for GI symptoms. -NRT -not needed as patient does not smoke -SW on board for discharge planning. Encourage patient to participate in groups to work on coping skills. Likely discharge in 1-2 days.
[2019-08-02 12:44] LABS: Glucose,Whole Blood 176 mg/dL (75-99)
[2019-08-02 17:36] LABS: Glucose,Whole Blood 97 mg/dL (75-99)
[2019-08-02 18:39] LABS: Glucose,Whole Blood 134 mg/dL (75-99)
--- NOTE | 2019-08-02 19:40 | PN ---
PROGRESS NOTE CHIEF COMPLAINT: Uncontrolled diabetes. HISTORY OF PRESENT ILLNESS: This gentleman's sugars are a little bit better. He is not running quite as low. PHYSICAL EXAMINATION: The rash is same. Chest is clear. IMPRESSION: Uncontrolled type 1 insulin-dependent diabetes mellitus. PLAN: Continue with current insulin dosage. GRACE / TRAMN: [id number] /
[2019-08-02 20:13] LABS: Glucose,Whole Blood 82 mg/dL (75-99)
[2019-08-02] MEDS: traZODone HCL 100 MG TAB PO SCH (22:04)
[2019-08-02] MEDS: MELATONIN 5 MG TABLET PO SCH (22:04)
[2019-08-03 07:46] LABS: Glucose,Whole Blood 177 mg/dL (75-99)
[2019-08-03] MEDS: INSULIN ASPART (NovoLOG) 100 UNIT/ML VIAL SQ SCH ×7 (07:50→20:15)
[2019-08-03] MEDS: INSULIN DETEMIR (LEVEMIR) 100 UNIT/ML SYR SQ SCH (07:51)
[2019-08-03] MEDS: busPIRone HCl 10 MG TAB PO SCH ×2 (08:20→20:15)
[2019-08-03] MEDS: VENLAFAXINE HCL ER 150 MG CAP PO SCH (08:20)
[2019-08-03] MEDS: GABAPENTIN 300 MG CAP PO SCH ×2 (08:20→20:14)
[2019-08-03] MEDS: DICYCLOMINE 10 MG CAP PO SCH ×3 (08:20→17:53)
[2019-08-03] MEDS: LORazepam 1 MG TAB PO PRN ×2 (08:21→20:15)
[2019-08-03 10:33] LABS: Basophils # (A) 0.1 k/uL (0-0.2); Basophils % (A) 1 %; Eosinophils # (A) 4.3 k/uL (0-0.7); Eosinophils % (A) 29 %; HCT 43.9 % (39.0-53.0); HGB 14.5 gm/dL (13.0-17.5); Lymphocytes # (A) 2.1 k/uL (1.0-4.8); Lymphocytes % (A) 14 %; MCH 30.7 pg (25.0-35.0); MCHC 33.1 g/dL (31.0-37.0); MCV 92.9 fL (80.0-100.0); Mean Platelet Volume 6.6; Monocytes # (A) 0.8 k/uL (0-1.0); Monocytes % (A) 5 %; Neutrophils # (A) 7.6 k/uL (1.3-7.7); Neutrophils % (A) 50 %; Platelet Count 349 k/uL (150-450); RBC 4.72 m/uL (4.30-5.90)
--- NOTE | 2019-08-03 11:34 | P.PN ---
Progress Note - Text Progress Note Date: 08/03/19 Interval History: Patient was seen laying down in his bed this morning and was directable and ag reeable to speak to technical report writer in the office. Patient claimed that he had a better night last night was able to sleep through the night. He states that his mood is still somewhat depressed however he feels that he is improving every day. Patient claims that he has been putting to use his coping skills on the unit and spoke about an incident with another patient where he held back even though he was very upset. He states that he is continuing to have diarrhea approximately 5-6 times per day and states that the dicyclomine is helping him however would like to speak again to the beauty counselor. 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 Patient also spoke about trying to manage his diabetes and the different challenges involved with it. He states that his energy level is improving mildly and has been going to some groups. He states that the BuSpar is helping mildly with anxiety. He states that he is having less suicidal thoughts at this time. At this time patient denies any homical ideations, intent or plan. Patient denies any auditory, visual hallucinations and denies any paranoia or delusions. Patient denies any side effects from the medications and has been compliant with meds. Mental Status Exam: General Appearance: Patient appears to be stated age is alert, directable, and attempts to cooperate. Patient appears to have improving hygiene and grooming. Behavior: Patient is seated without any agitated behavior. Attempts to cooperate. Speech: Patient's speech is fluent and nonpressured. Mood/Affect: Patient reports their mood is improving mildly, affect is congruent and constricted Suicidality/Homicidality: Patient denies having any homicidal ideation intent or plan. He is admitting less suicidal ideations however no intent or plan. Perceptions: Patient denies any visual hallucinations and denies any auditory hallucinations Though content/process: There is no evidence of any delusional thought content and thought process is linear and goal-directed. More future oriented. Memory and concentration: AOX3, grossly intact for the purposes of this session. Judgment and insight: mildly improving. Assessment Major depressive disorder, without psychotic features Anxiety disorder and specified Cannabis abuse History of stimulant abuse. Plan: -Patient continues to meet criteria for inpatient psychiatric admission for symptom stabilization and safety. Patient has signed adult voluntary form and medication consent and was placed in patient's chart. -Medications: We'll continue with trazodone 200 mg daily at bedtime for insomnia/mood. Continue with melatonin 5 mg daily at bedtime for sleep. Continue with Effexor XR 150 mg daily for depression/anxiety. Continue with BuSpar to 20 mg twice a day for anxiety. -When necessary Ativan and Geodon for agitation/aggression. -GI consultation, appreciate recommendations, patient's diarrhea may be likely secondary to functional bowel disorder, neuropathy related to diabetes mellitus or bacterial overgrowth. Celiac's blood work was negative and C. diff negative as well. Patient currently on dicyclomine for GI symptoms, will ask if there are any further recommendations to help with patient's diarrhea prior to discharge tomorrow. -NRT - not needed as patient does not smoke -SW on board for discharge planning. Encourage patient to participate in groups to work on coping skills. Likely discharge tomorrow.
[2019-08-03 12:05] LABS: Glucose,Whole Blood 67 mg/dL (75-99)
[2019-08-03 12:19] LABS: Glucose,Whole Blood 57 mg/dL (75-99)
[2019-08-03 12:32] LABS: Glucose,Whole Blood 81 mg/dL (75-99)
[2019-08-03 13:45] VITALS: BMI 19.3
[2019-08-03 17:40] LABS: Glucose,Whole Blood 151 mg/dL (75-99)
[2019-08-03] MEDS: CHOLESTYRAMINE (WITH SUGAR) 4 GM PACKET PO SCH (17:53)
--- NOTE | 2019-08-03 19:32 | PN ---
PROGRESS NOTE DATE OF DICTATION: 08/03/2019 The patient is a 23-year-old white male admitted to the hospital with severe postprandial diarrhea for the last one year's duration. He was admitted to the hospital with depression and psychotic episode and is in the mental health unit presently. He was seen by Dr. Elias in consultation, had workup done, including stool studies, Clostridium difficile toxin, celiac panel, which was all negative. He was subsequently started on Bentyl 20 mg four times daily. Symptoms are slightly better, but he still continues to have postprandial diarrhea; bowel movements anywhere from 12 to 14 on a daily basis. No bleeding. No weight loss. PHYSICAL EXAMINATION: On physical examination, he appears comfortable, in no apparent distress. VITAL SIGNS: Vital signs are stable. Blood pressure is 109/60, pulse rate 91, temperature 97.9. HEENT EXAMINATION: Unremarkable. Conjunctivae pink. Sclerae anicteric. Oral cavity no lesions. NECK: No JVD or lymph node enlargement. CHEST: Clear to auscultation. HEART: Regular rate and rhythm. ABDOMEN: Soft. Bowel sounds are positive. No organomegaly. EXTREMITIES: No pedal edema. SKIN: No rashes. NEUROLOGIC: Alert and oriented x3. No focal deficits. LABS: WBC 15, hemoglobin 14.5, platelets normal. Basic metabolic panel is within normal limits. IMPRESSION: 1. Chronic diarrhea of one year's duration, most likely related to irritable bowel syndrome. Recent workup, including celiac panel and stool studies, were negative. Doubt inflammatory bowel disease. Presently on Bentyl 20 mg four times daily with some improvement in his symptoms. 2. History of major depression with psychotic features. 3. History of diabetes mellitus. RECOMMENDATIONS: 1. Continue with dicyclomine 20 mg four times daily. 2. Will add Questran 4 grams twice daily to be given 2 hours before or after other medications. 3. If patient is going home tomorrow, he was advised to follow up in the office with Dr. Elias in two weeks. Thank you for this consultation. MMODL / IJN: [id number] /
[2019-08-03 20:03] LABS: Glucose,Whole Blood 171 mg/dL (75-99)
[2019-08-03] MEDS: MELATONIN 5 MG TABLET PO SCH (20:14)
[2019-08-03] MEDS: traZODone HCL 100 MG TAB PO SCH (20:14)
[2019-08-04 06:55] VITALS: BP 90/55; PULSE 104; RESP 16; TEMP 98
[2019-08-04] MEDS ORDERED: INSULIN DETEMIR (LEVEMIR) 100 UNIT/ML SYR SQ SCH (07:00)
[2019-08-04 08:03] LABS: Glucose,Whole Blood 167 mg/dL (75-99)
[2019-08-04] MEDS: INSULIN ASPART (NovoLOG) 100 UNIT/ML VIAL SQ SCH ×4 (08:09→12:57)
[2019-08-04] MEDS: DICYCLOMINE 10 MG CAP PO SCH ×2 (08:10→12:58)
[2019-08-04] MEDS: VENLAFAXINE HCL ER 150 MG CAP PO SCH (08:10)
[2019-08-04] MEDS: GABAPENTIN 300 MG CAP PO SCH (08:10)
[2019-08-04] MEDS: busPIRone HCl 10 MG TAB PO SCH (08:10)
[2019-08-04] MEDS: CHOLESTYRAMINE (WITH SUGAR) 4 GM PACKET PO SCH (09:57)
--- NOTE | 2019-08-04 12:20 | P.DS ---
Providers Date of admission: 07/19/19 05:51 Expected date of discharge: 08/04/19 Attending physician: Fer Merlos MD Consults: 07/19/19 06:03 Consult Physician Routine Consulting Provider: Brown Valenzuela Consult Reason/Comments: new admission, H&P Do you want consulting provider notified?: Yes, Notify in am 07/22/19 14:50 Consult Physician Routine Consulting Provider: Phil Horowitz Consult Reason/Comments: leukocytosis Do you want consulting provider notified?: Yes 07/26/19 11:29 Consult Physician Routine Consulting Provider: Brown Valenzuela Consult Reason/Comments: increased diarrhea, worsening neuropathy. Do you want consulting provider notified?: Yes 08/03/19 11:45 Consult Physician Routine Consulting Provider: Leah Cross Consult Reason/Comments: continued diarrhea Do you want consulting provider notified?: Yes Primary care physician: Brown Valenzuela - Discharge Diagnosis(es) (1) Major depressive disorder without psychotic features Current Visit: Yes Status: Acute Priority: High (2) Anxiety disorder, unspecified Current Visit: Yes Status: Acute Priority: Medium (3) Cannabis use disorder, mild, abuse Current Visit: Yes Status: Acute Priority: Low Hospital Course: Admission HPI: Patient is a 23-year-old male with a history of depression and type 1 diabetes currently single with no kids living with his friend. Patient presented to the hospital yesterday with a complaint of suicidal ideations and depression. Patient has been coming to the ER frequently with issues related to his diabetes. Patient was noted to have elevated white blood cell count and blood sugars greater than 400, for was not in DKA. Patient states that he was sitting in faith and was having negative thoughts about his grandmother and his guilt related to her . He states that he feels that it is her fault that she a year ago as he was dealing with his "addiction to Xanax" and feels that that was the reason why she . He claims that his friend dropped him off in the hospital as he didn't feel safe as he was mentioning a plan to go to the bathroom an overdose on insulin. Patient claims that since yesterday he has been doing mildly better however continues to feel depressed. He states that he has been trying to take care of himself with regards to eating/nutrition and taking his medications however was guarded about why he has been coming to the ER frequently. Patient states that he has been to taking his Prozac and trazodone at home. At this time patient states that he is having difficulties with sleep and appetite is fair. He claims that he does have fleeting thoughts of suicide at this time however no intent or plan. Patient denies any homicidal ideations intent or plan. At this time patient denies any auditory or visual hallucinations. Patient denies any flight of ideas racing thoughts and increas ed in goal directed behavior. Patient admits to using marijuana 1-2 times a week and states that he only takes "a couple of hits". He denies any other recreational drug use and denies cigarette use. Hospital course: Upon admission to the unit patient was initially depressed and suicidal. Patient was however directable and agreeable to commence treatment. Patient got along well with other patients on the unit and followed unit protocol. Patient was compliant with the medications and denied any side effects throughout hospital course. Patient was started on Prozac and titrated up to a dose of 60 mg however patient was not responding and had minimal improvement and was therefore switched onto Effexor XR titrated up to a dose of 150 mg daily for depression/anxiety. Patient was also started on melatonin 5 mg nightly for sleep, trazodone titrated up to dose of 300 mg daily at bedtime for insomnia/mood. Patient was also started on BuSpar and titrated up to a dose of 20 mg twice a day for anxiety. Patient spoke of his stressors and engaged in therapy both group and individual. Patient was also seen by medical team for history and physical exam. Patient's blood sugars were uncontrolled and insulin was adjusted. Patient also received a gastroenterology consult for diarrhea which appear to be chronic and as per GI recommendations started dicyclomine and cholestyramine. Celiac workup along with C. diff tests were negative. Patient also received a hematology consult for elevated white blood cell count and eosinophilia. in Throughout the course of the hospitalization patient gradually improved with regards to mood, anxiety, sleep and became future oriented with improved insight and judgment. On the day of discharge patient denied any suicidal or homicidal ideations intent or plan denied any auditory or visual hallucinations. Patient endorsed wanting to live for his health and family. The patient denied any access to guns or weapons. Patient denied any paranoia and did not endorse any delusions. Patient does have a significant history of substance abuse and was counseled on abstaining from all substances including alcohol and marijuana. Patient was also counseled on the medications and need for regular compliance and was encouraged to follow-up with their outpatient appointment for mental health and also for primary care. Prior to discharge a family meeting will be arranged by social sciences lecturer to answer any questions and ensure safety upon discharge. Mental status exam: General Appearance: Patient appears to be tall/thin and stated age is alert, pleasant, and cooperative. Patient is in no acute distress and has fair hygiene and grooming Behavior: Patient is calmly seated without any agitated behavior. Speech: Patient's speech is fluent and nonpressured. Mood/Affect: Patient reports their mood is "much better", affect is congruent and euthymic. Suicidality/Homicidality: Patient denies having any suicidal or homicidal ideation intent or plan. Perceptions: Patient denies any auditory or visual hallucinations. Though content/process: There is no evidence of any delusional thought content and thought process is linear and goal-directed. More future oriented. Memory and concentration: AOX3, grossly intact for the purposes of this session. Can spell "WORLD" backwards correctly. Judgment and insight: improved with guarded prognosis Impression: Major depressive disorder, without psychotic features Anxiety disorder unspecified Cannabis use disorder mild Plan: -Continue with discharge today as patient has improved and stabilized psy chiatrically and is not currently an imminent threat to himself and/or others. -Continue medications: Trazodone 300 mg daily at bedtime for insomnia/mood, melatonin 5 mg nightly for sleep, Effexor XR 150 mg daily for depression/anxiety, BuSpar 20 mg twice a day for anxiety. -Patient was counseled on the need for medication compliance and appropriate follow-up at mental health and also primary care for medical issues. Patient verbalized understanding and agreed. -Social work to arrange for and conduct family meeting to ensure safety upon discharge and answer any questions/concerns. Social work also to arrange for patients follow up appointments with [facility] for psychiatric care along with follow up with primary care provider. GI outpatient follow-up in 2 weeks at the clinic. -Patient counseled on abstaining from recreational drugs and marijuana and alcohol. Was informed/educated on the adverse effects on their physical and mental health. Patient verbally agreed and understood. -Patient was instructed to return to the hospital or seek immediate medical care if their psychiatric or medical symptoms do worsen or reoccur. Allergies Allergy/AdvReac Type Severity Reaction Status Date / Time No Known Allergies Allergy Verified 07/21/19 11:39 Laboratory Results WBC 15.0 k/uL (3.8-10.6) H 08/03/19 10:02 RBC 4.72 m/uL (4.30-5.90) 08/03/19 10:02 Hgb 14.5 gm/dL (13.0-17.5) 08/03/19 10:02 Hct 43.9 % (39.0-53.0) 08/03/19 10:02 MCV 92.9 fL (80.0-100.0) 08/03/19 10:02 MCH 30.7 pg (25.0-35.0) 08/03/19 10:02 MCHC 33.1 g/dL (31.0-37.0) 08/03/19 10:02 RDW 13.0 % (11.5-15.5) 08/03/19 10:02 Plt Count 349 k/uL (150-450) 08/03/19 10:02 Neutrophils % 50 % 08/03/19 10:02 Neutrophils % (Manual) 44 % 07/22/19 14:53 Lymphocytes % 14 % 08/03/19 10:02 Lymphocytes % (Manual) 18 % 07/22/19 14:53 Monocytes % 5 % 08/03/19 10:02 Monocytes % (Manual) 5 % 07/22/19 14:53 Eosinophils % 29 % 08/03/19 10:02 Eosinophils % (Manual) 33 % 07/22/19 14:53 Basophils % 1 % 08/03/19 10:02 Neutrophils # 7.6 k/uL (1.3-7.7) 08/03/19 10:02 Neutrophils # (Manual) 6.73 k/uL (1.3-7.7) 07/22/19 14:53 Lymphocytes # 2.1 k/uL (1.0-4.8) 08/03/19 10:02 Lymphocytes # (Manual) 2.75 k/uL (1.0-4.8) 07/22/19 14:53 Monocytes # 0.8 k/uL (0-1.0) 08/03/19 10:02 Monocytes # (Manual) 0.77 k/uL (0-1.0) 07/22/19 14:53 Eosinophils # 4.3 k/uL (0-0.7) H 08/03/19 10:02 Eosinophils # (Manual) 5.05 k/uL (0-0.7) H 07/22/19 14:53 Basophils # 0.1 k/uL (0-0.2) 08/03/19 10:02 Nucleated RBCs 0 /100 WBC (0-0) 07/22/19 14:53 Manual Slide Review Performed 08/03/19 10:02 RBC Morphology Normal 07/27/19 07:50 Polychromasia Present 07/22/19 14:53 ESR 5 mm/hr (0-15) 07/24/19 06:53 Sodium 138 mmol/L (137-145) 07/27/19 07:50 Potassium 5.0 mmol/L (3.5-5.1) 07/27/19 07:50 Chloride 101 mmol/L (98-107) 07/27/19 07:50 Carbon Dioxide 30 mmol/L (22-30) 07/27/19 07:50 Anion Gap 7 mmol/L 07/27/19 07:50 BUN 23 mg/dL (9-20) H 07/27/19 07:50 Creatinine 0.51 mg/dL (0.66-1.25) L 07/27/19 07:50 Est GFR (CKD-EPI)AfAm >90 (>60 ml/min/1.73 sqM) 07/27/19 07:50 Est GFR (CKD-EPI)NonAf >90 (>60 ml/min/1.73 sqM) 07/27/19 07:50 Glucose 202 mg/dL (74-99) H 07/27/19 07:50 POC Glucose (mg/dL) 205 mg/dL (75-99) H 08/04/19 12:36 POC Glu Software Asset Manager ID Rosy Murry 08/04/19 12:[address] Glu mg/dL 283 07/19/19 08:36 Hemoglobin A1c 11.5 % (4.0-6.0) H 07/19/19 08:36 Calcium 9.0 mg/dL (8.4-10.2) 07/27/19 07:50 Iron 72 ug/dL (65-175) 07/24/19 06:53 TIBC 268 ug/dL (228-460) 07/24/19 06:53 % Saturation 26.87 (15.00-50.00) 07/24/19 06:53 Erythropoietin 13.00 mIU/mL (2.00-30.00) 07/24/19 06:53 Ferritin 62.9 ng/mL (22.0-322.0) 07/24/19 06:53 Total Bilirubin 0.4 mg/dL (0.2-1.3) 07/19/19 08:33 Conjugated Bilirubin 0.0 mg/dL (0.0-0.3) 07/19/19 08:33 Unconjugated Bilirubin 0.2 mg/dL (0.0-1.1) 07/19/19 08:33 Delta Bilirubin 0.2 mg/dL (0.0-0.2) 07/19/19 08:33 AST 28 U/L (17-59) 07/19/19 08:33 ALT 23 U/L (4-49) 07/19/19 08:33 Alkaline Phosphatase 98 U/L (38-126) 07/19/19 08:33 Total Protein 6.9 g/dL (6.3-8.2) 07/19/19 08:33 Albumin 4.0 g/dL (3.5-5.0) 07/19/19 08:33 Triglycerides 211 mg/dL (<150) H 07/19/19 08:33 Cholesterol 120 mg/dL (<200) 07/19/19 08:33 LDL Cholesterol, Calc 40 mg/dL (0-99) 07/19/19 08:33 HDL Cholesterol 38 mg/dL (40-60) L 07/19/19 08:33 TSH 2.430 mIU/L (0.465-4.680) 07/19/19 08:33 Urine Color Yellow 07/19/19 03:42 Urine Appearance Clear (Clear) 07/19/19 03:42 Urine pH 6.0 (5.0-8.0) 07/19/19 03:42 Ur Specific [place] 1.029 (1.001-1.035) 07/19/19 03:42 Urine Protein Trace (Negative) H 07/19/19 03:42 Urine Glucose (UA) 4+ (Negative) H 07/19/19 03:42 Urine Ketones Negative (Negative) 07/19/19 03:42 Urine Blood Negative (Negative) 07/19/19 03:42 Urine Nitrite Negative (Negative) 07/19/19 03:42 Urine Bilirubin Negative (Negative) 07/19/19 03:42 Urine Urobilinogen <2.0 mg/dL (<2.0) 07/19/19 03:42 Ur Leukocyte Esterase Negative (Negative) 07/19/19 03:42 Urine Opiates Screen Not Detected (NotDetected) 07/19/19 03:42 Ur Oxycodone Screen Not Detected (NotDetected) 07/19/19 03:42 Urine Methadone Screen Not Detected (NotDetected) 07/19/19 03:42 Ur Propoxyphene Screen Not Detected (NotDetected) 07/19/19 03:42 Ur Barbiturates Screen Not Detected (NotDetected) 07/19/19 03:42 U Tricyclic Antidepress Not Detected (NotDetected) 07/19/19 03:42 Ur Phencyclidine Scrn Not Detected (NotDetected) 07/19/19 03:42 Ur Amphetamines Screen Not Detected (NotDetected) 07/19/19 03:42 U Methamphetamines Scrn Not Detected (NotDetected) 07/19/19 03:42 U Benzodiazepines Scrn Not Detected (NotDetected) 07/19/19 03:42 Urine Cocaine Screen Not Detected (NotDetected) 07/19/19 03:42 U Marijuana (THC) Screen Detected (NotDetected) H 07/19/19 03:42 Acetone, Qual Negative (Negative) 07/18/19 19:55 IgE 6217.00 IU/mL (0.00-114.00) H 07/24/19 06:53 Rheumatoid Factor 4 IU/mL (0-15) 07/24/19 06:53 ИРИНА Screen POSITIVE (NEGATIVE) H 07/24/19 06:53 ИРИНА Titer Titer 1:160 07/24/19 06:53 ИРИНА Pattern Speckled 07/24/19 06:53 Tiss Transglutamin IgG <0.8 U/mL 07/27/19 07:50 Tiss Transglut IgG Intp NEGATIVE (NEGATIVE) 07/27/19 07:50 Tiss Transglutamin IgA <0.5 AI 07/27/19 07:50 Tis Transglut IgA Intrp NEGATIVE (NEGATIVE) 07/27/19 07:50 Anti-Gliadin IgG Deam <0.4 U/mL 07/27/19 07:50 Anti-Gliadin IgA Deam <0.2 U/mL 07/27/19 07:50 Gliadin (Deam) IgG Int NEGATIVE (NEGATIVE) 07/27/19 07:50 Gliadin (Deam) IgA Int NEGATIVE (NEGATIVE) 07/27/19 07:50 C. difficile (EIA) Intrp Negative (Negative) 07/27/19 14:40 Vital Signs Temp 98 F 08/04/19 06:26 Pulse 104 H 08/04/19 06:26 Resp 16 08/04/19 06:26 BP 90/55 08/04/19 06:26 Pulse Ox 97 07/29/19 06:43 Intake & Output 08/03/19 08/04/19 08/04/19 18:59 06:59 18:59 Weight 70.2 kg Patient Condition at Discharge: Stable Plan - Discharge Summary New Discharge Prescriptions: New Dicyclomine [Bentyl] 20 mg PO AC-TID 30 Days cap busPIRone HCl [Buspar] 20 mg PO BID 30 Days tab Venlafaxine HCl ER [Effexor XR] 150 mg PO DAILY 30 Days cap.er.24h Melatonin 5 mg PO HS 30 Days tablet Gabapentin [Neurontin] 600 mg PO BID 30 Days cap Cholestyramine (with Sugar) [Questran Packet] 4 gm PO BID@1000,1800 30 Days packet traZODone HCL 300 mg PO HS 30 Days tab Continue Triamcinolone 0.1% Cream [Kenalog 0.1% Cream] 1 applic TOPICAL QID PRN PRN Reason: Rash Insulin Lispro [Admelog] 15 units SQ AC-TID #1 vial Insulin Glargine,Hum.rec.anlog [Basaglar Kwikpen U-100] 50 unit SQ HS #1 pen Discontinued Gabapentin [Neurontin] 600 mg PO HS Gabapentin [Neurontin] 300 mg PO QAM traZODone HCL [Desyrel] 300 mg PO HS Discharge Medication List Triamcinolone 0.1% Cream [Kenalog 0.1% Cream] 1 applic TOPICAL QID PRN 07/15/19 [History] Insulin Glargine,Hum.rec.anlog [Basaglar Kofiikpen U-100] 50 unit SQ HS #1 pen 07/17/19 [Rx] Insulin Lispro [Admelog] 15 units SQ AC-TID #1 vial 07/17/19 [Rx] Cholestyramine (with Sugar) [Questran Packet] 4 gm PO BID@1000,1800 30 Days packet 08/04/19 [Rx] Dicyclomine [Bentyl] 20 mg PO AC-TID 30 Days cap 08/04/19 [Rx] Gabapentin [Neurontin] 600 mg PO BID 30 Days cap 08/04/19 [Rx] Melatonin 5 mg PO HS 30 Days tablet 08/04/19 [Rx] Venlafaxine HCl ER [Effexor XR] 150 mg PO DAILY 30 Days cap.er.24h 08/04/19 [Rx] busPIRone HCl [Buspar] 20 mg PO BID 30 Days tab 08/04/19 [Rx] traZODone HCL 300 mg PO HS 30 Days tab 08/04/19 [Rx] Follow up Appointment(s)/Referral(s): [facility] [Outside] - 08/09/19 1:00 pm (Appointment with José Miguel Vasquez) Phil Horowitz MD [STAFF PHYSICIAN] - 3 Weeks Brown Valenzuela MD [Primary Care Provider] - 1-2 days Leticia Marquez PAC [REFERRING] - 2 Weeks (hospital follow up chronic diarrhea with outpatient colonoscopy) Patient Instructions/Handouts: Depression (DC), Help Prevent Suicide (DC) Activity/Diet/Wound Care/Special Instructions: Activity and diet as tolerated. Avoid the use of street drugs and alcohol. Take all medications as prescribed. When you are in need of refills on your medications please contact your medical provider and/or outpatient psychiatrist to have this done. Please go to scheduled outpatient appointment for aftercare treatment. If symptoms return or become worse, call the crisis line at and/or go to the nearest emergency room for evaluation. Discharge Disposition: HOME SELF-CARE
[2019-08-04 12:40] LABS: Glucose,Whole Blood 205 mg/dL (75-99)
--- NOTE | 2019-08-04 23:41 | DS ---
DISCHARGE SUMMARY ADDENDUM: He will go home on his Basaglar 34 units once a day, and add NovoLog 10 units before meals, and was told to come into the office in a day or 2 after his discharge from the psych unit. MMBIANCA / TRAMN: [id number] /
== END 2019-08-04 15:59 | disposition home or self-care (01) | DRG 885 ==
LOC: EC 19:35 → 3MHU 07-19 05:51
PROVIDERS: ADMIT Psychiatry & Neurology Psychiatry; ATTEND Psychiatry & Neurology Psychiatry
DX: F33.2 Major depressive disorder, recurrent severe without psychotic features (principal); R45.851 Suicidal ideations; E10.649 Type 1 diabetes mellitus with hypoglycemia without coma; D72.1 Eosinophilia; E10.40 Type 1 diabetes mellitus with diabetic neuropathy, unspecified; E10.43 Type 1 diabetes mellitus with diabetic autonomic (poly)neuropathy; K31.84 Gastroparesis; E10.65 Type 1 diabetes mellitus with hyperglycemia; J45.909 Unspecified asthma, uncomplicated; K58.0 Irritable bowel syndrome with diarrhea; G47.00 Insomnia, unspecified; L20.9 Atopic dermatitis, unspecified; R19.09 Other intra-abdominal and pelvic swelling, mass and lump; D75.1 Secondary polycythemia; R48.2 Apraxia; F41.9 Anxiety disorder, unspecified; F12.10 Cannabis abuse, uncomplicated; F15.11 Other stimulant abuse, in remission; F13.21 Sedative, hypnotic or anxiolytic dependence, in remission; Z79.4 Long term (current) use of insulin; Z79.899 Other long term (current) drug therapy; Z91.5 Personal history of self-harm; Z87.891 Personal history of nicotine dependence; Z98.890 Other specified postprocedural states; Z91.19 Patient's noncompliance with other medical treatment and regimen; Z82.3 Family history of stroke; Z82.49 Family history of ischemic heart disease and other diseases of the circulatory system; Z83.49 Family history of other endocrine, nutritional and metabolic diseases
CPT/HCPCS: 36415; 80048; 80053; 80061; 80306; 81003; 82009; 82075; 82248; 82668; 82728; 82785; 83036; 83516; 83540; 83550; 84443; 85025; 85652; 86038; 86039; 86431; 87045; 87046; 87324; 96361; 96374; 96376; 99285

== ENCOUNTER 2019-08-05 21:38 | Inpatient (IN) | payer MEDICAID, OTHER ==
[2019-08-05] MEDS ORDERED: DEXTROSE 5%-0.9% NACL 1,000 ML IV SCH (22:15)
[2019-08-05 22:23] LABS: Glucose,Whole Blood 71 mg/dL (75-99)
[2019-08-05 22:51] LABS: Acetaminophen <10.0 ug/mL; Alcohol <10 mg/dL; Salicylate <1.0 mg/dL
[2019-08-05 22:54] LABS: Amphetamine Screen,Urine Not Detected (NotDetected); Barbiturate Screen,Urine Not Detected (NotDetected); Benzodiazepines Screen,Urine Not Detected (NotDetected); Cocaine Screen,Urine Not Detected (NotDetected); Methadone Screen, Urine Not Detected (NotDetected); Opiate Screen,Urine Not Detected (NotDetected); Oxycodone Screen, Urine Not Detected (NotDetected); Phencyclidine Screen,Urine Not Detected (NotDetected); Tricyclic Antidepressant,Urine Not Detected (NotDetected); Urn Cannabinoid Scrn Detected (NotDetected)
--- NOTE | 2019-08-05 22:54 | ED ---
Psych HPI - General Chief Complaint: Psychiatric Symptoms Stated Complaint: Mental Health Time Seen by Provider: 08/05/19 22:15 Source: patient Mode of arrival: ambulatory - History of Present Illness Initial Comments: Raul is a 23-year-old male with extensive psychiatric history who is brought to the ER today with suicidal ideation. Patient states that he is feeling suicidal so he took 10 trazodone and administered himself 20 units of rapid acting insulin. Patient reports that he was an inpatient psychiatric care last week but continues to feel depressed and suicidal. - Related Data Home Medications Medication Instructions Recorded Confirmed Triamcinolone 0.1% Cream [Kenalog 1 applic TOPICAL QID PRN 07/15/19 07/21/19 0.1% Cream] Previous Rx's Medication Instructions Recorded Cholestyramine (with Sugar) 4 gm PO BID@1000,1800 30 Days 08/04/19 [Questran Packet] packet Dicyclomine [Bentyl] 20 mg PO AC-TID 30 Days cap 08/04/19 Gabapentin [Neurontin] 600 mg PO BID 30 Days cap 08/04/19 Insulin Detemir (Levemir) [Levemir] 34 unit SQ DAILY@0700 #1 syr 08/04/19 Insulin Lispro [Admelog] 15 units SQ AC-TID #1 vial 08/04/19 Melatonin 5 mg PO HS 30 Days tablet 08/04/19 Venlafaxine HCl ER [Effexor XR] 150 mg PO DAILY 30 Days cap.er.24h 08/04/19 busPIRone HCl [Buspar] 20 mg PO BID 30 Days tab 08/04/19 traZODone HCL 300 mg PO HS 30 Days tab 08/04/19 Allergies Allergy/AdvReac Type Severity Reaction Status Date / Time No Known Allergies Allergy Verified 08/05/19 21:48 Review of Systems ROS Statement: Those systems with pertinent positive or pertinent negative responses have been documented in the HPI. ROS Other: All systems not noted in ROS Statement are negative. Past Medical History Past Medical History: Asthma, Diabetes Mellitus, Skin Disorder Additional Past Medical History / Comment(s): , insulin dependent diabetes oral apraxia; previous suicidal attempts anxiety/depression, previous hospital physicians for DKA,gastroparesis. History of Any Multi-Drug Resistant Organisms: None Reported Past Surgical History: Adenoidectomy Additional Past Surgical History / Comment(s): 2002 Past Anesthesia/Blood Transfusion Reactions: No Reported Reaction Past Psychological History: Anxiety, Depression Smoking Status: Current every day smoker Past Alcohol Use History: None Reported Past Drug Use History: None Reported - Past Family History Mother Family Medical History: CVA/TIA Father Family Medical History: Hyperlipidemia, Hypertension Additional Family Medical History / Comment(s): . General Exam - General Exam Comments Initial Comments: Physical Exam GENERAL: Patient is well-developed and well-nourished. Patient is nontoxic and well- hydrated and is in no distress. HENT: Normocephalic, Atraumatic. EYES: PERRL, EOMI PULMONARY: Unlabored respirations. No audible rales rhonchi or wheezing was noted. CARDIOVASCULAR: Tachycardic, regular ABDOMEN: Soft and nontender with normal bowel sounds. SKIN: Skin is clear with no lesions or rashes and otherwise unremarkable. : Deferred NEUROLOGIC: Patient is alert and oriented x3. Moving all extremities spontaneously MUSCULOSKELETAL: Normal extremities with adequate strength and full range of motion. No lower extremity swelling or edema. No calf tenderness. PSYCHIATRIC: Suicidal Limitations: no limitations Course Vital Signs 08/05/19 08/06/19 08/06/19 21:45 00:19 01:00 Temperature 97.6 F 97.5 F L Pulse Rate 130 H 116 H 101 H Respiratory 20 16 20 Rate Blood Pressure 100/68 93/52 101/66 O2 Sat by Pulse 99 96 97 Oximetry 08/06/19 08/06/19 08/06/19 02:00 04:00 05:33 Temperature 97.5 F L 97.6 F Pulse Rate 101 H 104 H 96 Respiratory 20 18 16 Rate Blood Pressure 104/66 95/63 101/70 O2 Sat by Pulse 97 98 97 Oximetry 08/06/19 06:31 Temperature 97.7 F Pulse Rate 90 Respiratory 16 Rate Blood Pressure 101/70 O2 Sat by Pulse 98 Oximetry Medical Decision Making - Medical Decision Making Patient was seen and evaluated history is obtained from patient Psychiatric workup was initiated Patient care was discussed with poison control who recommended optimizing electrolytes, check blood glucose hourly for 3 hours Patient was noted be mildly hypoglycemic and a D5 drip was initiated Patient is noted to be hypokalemic and replacement was ordered Patient's initial EKG with borderline QT prolongation, repeat EKG is obtained and had worsening QT prolongation Patient was refusing oral potassium therefore IV was ordered Patient received 20 mEq of IV potassium and a repeat EKG was ordered with improvement in the QT Patient's glucose is been stable off the D5 drip for 1 hour patient is awake alert and able to eat This time patient is medically cleared for admission to psychiatric unit - Lab Data Result diagrams: 08/05/19 22:30 08/05/19 22:30 Lab Results 08/05/19 08/05/19 08/05/19 Range/Units 22:17 22:30 22:30 WBC 18.5 H (3.8-10.6) k/uL RBC 5.30 (4.30-5.90) m/uL Hgb 16.0 (13.0-17.5) gm/dL Hct 47.9 (39.0-53.0) % MCV 90.5 (80.0-100.0) fL MCH 30.2 (25.0-35.0) pg MCHC 33.4 (31.0-37.0) g/dL RDW 12.9 (11.5-15.5) % Plt Count 448 (150-450) k/uL Neutrophils % (Manual) 33 % Band Neutrophils % 1 % Lymphocytes % (Manual) 32 % Monocytes % (Manual) 8 % Eosinophils % (Manual) 25 % Basophils % (Manual) 1 % Neutrophils # (Manual) 6.20 (1.3-7.7) k/uL Lymphocytes # (Manual) 5.92 H (1.0-4.8) k/uL Monocytes # (Manual) 1.48 H (0-1.0) k/uL Eosinophils # (Manual) 4.63 H (0-0.7) k/uL Basophils # (Manual) 0.19 (0-0.2) k/uL Nucleated RBCs 0 (0-0) /100 WBC Manual Slide Review Performed Sodium (137-145) mmol/L Potassium (3.5-5.1) mmol/L Chloride (98-107) mmol/L Carbon Dioxide (22-30) mmol/L Anion Gap mmol/L BUN (9-20) mg/dL Creatinine (0.66-1.25) mg/dL Est GFR (CKD-EPI)AfAm (>60 ml/min/1.73 sqM) Est GFR (CKD-EPI)NonAf (>60 ml/min/1.73 sqM) Glucose (74-99) mg/dL POC Glucose (mg/dL) 71 L (75-99) mg/dL POC Glu Amplifier Mechanic ID Kayla Osman Calcium (8.4-10.2) mg/dL Magnesium (1.6-2.3) mg/dL Total Bilirubin (0.2-1.3) mg/dL AST (17-59) U/L ALT (4-49) U/L Alkaline Phosphatase (38-126) U/L Total Protein (6.3-8.2) g/dL Albumin (3.5-5.0) g/dL Salicylates mg/dL Urine Opiates Screen Not Detected (NotDetected) Ur Oxycodone Screen Not Detected (NotDetected) Urine Methadone Screen Not Detected (NotDetected) Ur Propoxyphene Screen Not Detected (NotDetected) Acetaminophen ug/mL Ur Barbiturates Screen Not Detected (NotDetected) U Tricyclic Antidepress Not Detected (NotDetected) Ur Phencyclidine Scrn Not Detected (NotDetected) Ur Amphetamines Screen Not Detected (NotDetected) U Methamphetamines Scrn Not Detected (NotDetected) U Benzodiazepines Scrn Not Detected (NotDetected) Urine Cocaine Screen Not Detected (NotDetected) U Marijuana (THC) Screen Detected H (NotDetected) Serum Alcohol mg/dL 08/05/19 08/05/19 08/05/19 Range/Units 22:30 22:30 22:30 WBC (3.8-10.6) k/uL RBC (4.30-5.90) m/uL Hgb (13.0-17.5) gm/dL Hct (39.0-53.0) % MCV (80.0-100.0) fL MCH (25.0-35.0) pg MCHC (31.0-37.0) g/dL RDW (11.5-15.5) % Plt Count (150-450) k/uL Neutrophils % (Manual) % Band Neutrophils % % Lymphocytes % (Manual) % Monocytes % (Manual) % Eosinophils % (Manual) % Basophils % (Manual) % Neutrophils # (Manual) (1.3-7.7) k/uL Lymphocytes # (Manual) (1.0-4.8) k/uL Monocytes # (Manual) (0-1.0) k/uL Eosinophils # (Manual) (0-0.7) k/uL Basophils # (Manual) (0-0.2) k/uL Nucleated RBCs (0-0) /100 WBC Manual Slide Review Sodium 143 (137-145) mmol/L Potassium 3.3 L (3.5-5.1) mmol/L Chloride 102 (98-107) mmol/L Carbon Dioxide 31 H (22-30) mmol/L Anion Gap 10 mmol/L BUN 21 H (9-20) mg/dL Creatinine 0.57 L (0.66-1.25) mg/dL Est GFR (CKD-EPI)AfAm >90 (>60 ml/min/1.73 sqM) Est GFR (CKD-EPI)NonAf >90 (>60 ml/min/1.73 sqM) Glucose 51 L (74-99) mg/dL POC Glucose (mg/dL) (75-99) mg/dL POC Glu Amplifier Mechanic ID Calcium 9.7 (8.4-10.2) mg/dL Magnesium 2.3 (1.6-2.3) mg/dL Total Bilirubin 0.5 (0.2-1.3) mg/dL AST 26 (17-59) U/L ALT 44 (4-49) U/L Alkaline Phosphatase 101 (38-126) U/L Total Protein 7.9 (6.3-8.2) g/dL Albumin 4.7 (3.5-5.0) g/dL Salicylates <1.0 mg/dL Urine Opiates Screen (NotDetected) Ur Oxycodone Screen (NotDetected) Urine Methadone Screen (NotDetected) Ur Propoxyphene Screen (NotDetected) Acetaminophen <10.0 ug/mL Ur Barbiturates Screen (NotDetected) U Tricyclic Antidepress (NotDetected) Ur Phencyclidine Scrn (NotDetected) Ur Amphetamines Screen (NotDetected) U Methamphetamines Scrn (NotDetected) U Benzodiazepines Scrn (NotDetected) Urine Cocaine Screen (NotDetected) U Marijuana (THC) Screen (NotDetected) Serum Alcohol <10 mg/dL 08/06/19 08/06/19 Range/Units 01:39 03:20 WBC (3.8-10.6) k/uL RBC (4.30-5.90) m/uL Hgb (13.0-17.5) gm/dL Hct (39.0-53.0) % MCV (80.0-100.0) fL MCH (25.0-35.0) pg MCHC (31.0-37.0) g/dL RDW (11.5-15.5) % Plt Count (150-450) k/uL Neutrophils % (Manual) % Band Neutrophils % % Lymphocytes % (Manual) % Monocytes % (Manual) % Eosinophils % (Manual) % Basophils % (Manual) % Neutrophils # (Manual) (1.3-7.7) k/uL Lymphocytes # (Manual) (1.0-4.8) k/uL Monocytes # (Manual) (0-1.0) k/uL Eosinophils # (Manual) (0-0.7) k/uL Basophils # (Manual) (0-0.2) k/uL Nucleated RBCs (0-0) /100 WBC Manual Slide Review Sodium (137-145) mmol/L Potassium (3.5-5.1) mmol/L Chloride (98-107) mmol/L Carbon Dioxide (22-30) mmol/L Anion Gap mmol/L BUN (9-20) mg/dL Creatinine (0.66-1.25) mg/dL Est GFR (CKD-EPI)AfAm (>60 ml/min/1.73 sqM) Est GFR (CKD-EPI)NonAf (>60 ml/min/1.73 sqM) Glucose (74-99) mg/dL POC Glucose (mg/dL) 198 H 166 H (75-99) mg/dL POC Glu Amplifier Mechanic ID Osman, Kayla Osman, Kayla Calcium (8.4-10.2) mg/dL Magnesium (1.6-2.3) mg/dL Total Bilirubin (0.2-1.3) mg/dL AST (17-59) U/L ALT (4-49) U/L Alkaline Phosphatase (38-126) U/L Total Protein (6.3-8.2) g/dL Albumin (3.5-5.0) g/dL Salicylates mg/dL Urine Opiates Screen (NotDetected) Ur Oxycodone Screen (NotDetected) Urine Methadone Screen (NotDetected) Ur Propoxyphene Screen (NotDetected) Acetaminophen ug/mL Ur Barbiturates Screen (NotDetected) U Tricyclic Antidepress (NotDetected) Ur Phencyclidine Scrn (NotDetected) Ur Amphetamines Screen (NotDetected) U Methamphetamines Scrn (NotDetected) U Benzodiazepines Scrn (NotDetected) Urine Cocaine Screen (NotDetected) U Marijuana (THC) Screen (NotDetected) Serum Alcohol mg/dL - EKG Data -: EKG Interpreted by Me EKG Comments: Initial EKG was obtained due to complaint of overdose, initial EKG obtained at 2256, repeat is 118 rhythm is sinus with a rightward axis, NE 138, care is 90, QTC mildly prolonged at 507. There are no acute ST elevations or depressions and no evidence of acute ischemia or infarction or arrhythmia. Repeat EKG was obtained due to previously mildly prolonged QT, repeat EKG obtained at 1:47 AM, rate is 96 rhythm is again sinus with a rightward axis, NE is 162, QRS 92, QTc is now prolonged at 510. No acute ST elevations or depressions no evidence of acute ischemia or infarction. Repeat EKG was obtained at 5:29 AM, rate is 96 rhythm is sinus rightward axis, NE 160, converse 88, QTC is improving at 485 there is still no acute ST elevations or depressions no evidence of acute ischemia infarction or arrhythmia. Critical Care Time Critical Care Time: Yes Total Critical Care Time: 45 Critical Care Time: Critical care time was exclusive of separately billable procedures and treating other patients and teaching time. Critical care was necessary to treat or prevent imminent or life-threatening deterioration. Given the critical condition in which the patient arrived, the patient was immediately assessed by myself and the nurse, and cardiac monitoring initiated due to the potential for rapid decompensation of the patient's clinical condition. During the course of the patients stay, I spent a considerable amount of time at the bedside performing serial re-evaluations of the patient's hemodynamic and clinical status because of the recognized potential threat to life or limb in this condition. I then had a chance to review not only all of the available current laboratory and radiographic studies obtained today, but I also reviewed old records available to me at the time. Additionally, any ancillary information available including steam drier tender records were reviewed. Sequential vital signs were obtained. Patient care was discussed with poison control as well as psychiatric nurse and admitting team Disposition Clinical Impression: Suicide attempt, Drug overdose, intentional, Major depressive disorder, recurrent, Insulin overdose Disposition: TRANSFER TO PSYCH HOSP/UNIT Condition: Serious
[2019-08-05 22:56] LABS: HCT 47.9 % (39.0-53.0); MCH 30.2 pg (25.0-35.0); MCHC 33.4 g/dL (31.0-37.0); MCV 90.5 fL (80.0-100.0); Mean Platelet Volume 6.9; Platelet Count 448 k/uL (150-450); RDW 12.9 % (11.5-15.5); WBC 18.5 k/uL (3.8-10.6)
[2019-08-05 23:38] LABS: ALT 44 U/L (4-49); AST 26 U/L (17-59); African American GFR (CKD) >90 (>60 ml/min/1.73 sqM); Albumin 4.7 g/dL (3.5-5.0); Alkaline Phosphatase 101 U/L (38-126); Anion Gap 10 mmol/L; Blood Urea Nitrogen 21 mg/dL (9-20); Calcium 9.7 mg/dL (8.4-10.2); Carbon Dioxide 31 mmol/L (22-30); Chloride 102 mmol/L (98-107); Glucose 51 mg/dL (74-99); Non-African American GFR(CKD) >90 (>60 ml/min/1.73 sqM); Potassium 3.3 mmol/L (3.5-5.1); Sodium 143 mmol/L (137-145); Total Bilirubin 0.5 mg/dL (0.2-1.3); Total Protein 7.9 g/dL (6.3-8.2)
[2019-08-06] MEDS ORDERED: SODIUM CHLORIDE 0.9% 1,000 ML IV STA (00:09)
[2019-08-06 00:30] LABS: Band Neutrophils % 1 %; Basophils # (M) 0.19 k/uL (0-0.2); Eosinophils # (M) 4.63 k/uL (0-0.7); Lymphocytes # (M) 5.92 k/uL (1.0-4.8); Monocytes # (M) 1.48 k/uL (0-1.0); Neutrophils % (M) 33 %; Nucleated Red Blood Cells 0 /100 WBC (0-0); Total Cells Counted 100
[2019-08-06 01:40] LABS: Glucose,Whole Blood 198 mg/dL (75-99)
[2019-08-06] MEDS ORDERED: POTASSIUM CHLORIDE ER 20 MEQ TAB.ER PO STA (01:57)
[2019-08-06] MEDS ORDERED: Potassium Replacement Protocol 1 EACH MISC MISCELLANE PRN (02:24)
[2019-08-06] MEDS: POTASSIUM CHLORIDE 10 MEQ in WATER FOR INJECTION 1 100ML.BAG IVPB SCH ×3 (02:42→06:06)
[2019-08-06 03:21] LABS: Glucose,Whole Blood 166 mg/dL (75-99)
[2019-08-06] MEDS ORDERED: ACETAMINOPHEN TAB 325 MG TAB PO PRN (06:30)
[2019-08-06] MEDS ORDERED: MAG HYDROX/AL HYDROX/SIMETH 30 ML CUP PO PRN (06:30)
[2019-08-06] MEDS ORDERED: LORazepam 1 MG TAB PO PRN (06:30)
[2019-08-06] MEDS ORDERED: MAGNESIUM HYDROXIDE 2,400 MG/10 ML CUP PO PRN (06:30)
[2019-08-06 08:04] LABS: Glucose,Whole Blood 213 mg/dL (75-99)
[2019-08-06] MEDS ORDERED: busPIRone HCl 10 MG TAB PO SCH (09:00)
[2019-08-06] MEDS ORDERED: GABAPENTIN 300 MG CAP PO SCH (09:00)
[2019-08-06] MEDS ORDERED: VENLAFAXINE HCL ER 150 MG CAP PO SCH (09:00)
[2019-08-06] MEDS ORDERED: DICYCLOMINE 10 MG CAP PO SCH (09:00)
[2019-08-06 09:09] LABS: Glucose,Whole Blood 328 mg/dL (75-99)
[2019-08-06] MEDS: INSULIN ASPART (NovoLOG) 100 UNIT/ML VIAL SQ SCH ×7 (09:10→20:11)
[2019-08-06] MEDS: INSULIN DETEMIR (LEVEMIR) 100 UNIT/ML SYR SQ SCH (09:11)
[2019-08-06] MEDS ORDERED: CHOLESTYRAMINE (WITH SUGAR) 4 GM PACKET PO SCH (10:00)
[2019-08-06] MEDS ORDERED: TRIAMCINOLONE 0.1% CREAM 80 GM TUBE TOPICAL PRN (10:17)
[2019-08-06] MEDS ORDERED: INSULIN ASPART (NovoLOG) 100 UNIT/ML VIAL SQ SCH (12:30)
[2019-08-06 12:45] LABS: Glucose,Whole Blood 67 mg/dL (75-99)
[2019-08-06 13:05] LABS: Glucose,Whole Blood 73 mg/dL (75-99)
--- NOTE | 2019-08-06 13:15 | P.HP ---
Psychiatric H&P - . H&P Date: 08/06/19 History & Physical: Allergies Allergy/AdvReac Type Severity Reaction Status Date / Time No Known Allergies Allergy Verified 08/05/19 21:48 Vital Signs Temp 97.1 F L 08/06/19 07:09 Pulse 106 H 08/06/19 07:09 Resp 14 08/06/19 07:09 BP 99/56 08/06/19 07:09 Pulse Ox 97 08/06/19 07:09 Intake & Output 08/05/19 08/06/19 08/06/19 18:59 06:59 18:59 Weight 70.307 kg 72 kg Laboratory Last Values WBC 18.5 k/uL (3.8-10.6) H 08/05/19 22:30 RBC 5.30 m/uL (4.30-5.90) 08/05/19 22:30 Hgb 16.0 gm/dL (13.0-17.5) 08/05/19 22:30 Hct 47.9 % (39.0-53.0) 08/05/19 22:30 MCV 90.5 fL (80.0-100.0) 08/05/19 22:30 MCH 30.2 pg (25.0-35.0) 08/05/19 22:30 MCHC 33.4 g/dL (31.0-37.0) 08/05/19 22:30 RDW 12.9 % (11.5-15.5) 08/05/19 22:30 Plt Count 448 k/uL (150-450) 08/05/19 22:30 Neutrophils % (Manual) 33 % 08/05/19 22:30 Band Neutrophils % 1 % 08/05/19 22:30 Lymphocytes % (Manual) 32 % 08/05/19 22:30 Monocytes % (Manual) 8 % 08/05/19 22:30 Eosinophils % (Manual) 25 % 08/05/19 22:30 Basophils % (Manual) 1 % 08/05/19 22:30 Neutrophils # (Manual) 6.20 k/uL (1.3-7.7) 08/05/19 22:30 Lymphocytes # (Manual) 5.92 k/uL (1.0-4.8) H 08/05/19 22:30 Monocytes # (Manual) 1.48 k/uL (0-1.0) H 08/05/19 22:30 Eosinophils # (Manual) 4.63 k/uL (0-0.7) H 08/05/19 22:30 Basophils # (Manual) 0.19 k/uL (0-0.2) 08/05/19 22:30 Nucleated RBCs 0 /100 WBC (0-0) 08/05/19 22:30 Manual Slide Review Performed 08/05/19 22:30 Sodium 143 mmol/L (137-145) 08/05/19 22:30 Potassium 3.3 mmol/L (3.5-5.1) L 08/05/19 22:30 Chloride 102 mmol/L (98-107) 08/05/19 22:30 Carbon Dioxide 31 mmol/L (22-30) H 08/05/19 22:30 Anion Gap 10 mmol/L 08/05/19 22:30 BUN 21 mg/dL (9-20) H 08/05/19 22:30 Creatinine 0.57 mg/dL (0.66-1.25) L 08/05/19 22:30 Est GFR (CKD-EPI)AfAm >90 (>60 ml/min/1.73 sqM) 08/05/19 22:30 Est GFR (CKD-EPI)NonAf >90 (>60 ml/min/1.73 sqM) 08/05/19 22:30 Glucose 51 mg/dL (74-99) L 08/05/19 22:30 POC Glucose (mg/dL) 328 mg/dL (75-99) H 08/06/19 09:05 POC Glu Track Oiler DARRION Palak Arroyo 08/06/19 09:05 Calcium 9.7 mg/dL (8.4-10.2) 08/05/19 22:30 Magnesium 2.3 mg/dL (1.6-2.3) 08/05/19 22:30 Total Bilirubin 0.5 mg/dL (0.2-1.3) 08/05/19 22:30 AST 26 U/L (17-59) 08/05/19 22:30 ALT 44 U/L (4-49) 08/05/19 22:30 Alkaline Phosphatase 101 U/L (38-126) 08/05/19 22:30 Total Protein 7.9 g/dL (6.3-8.2) 08/05/19 22:30 Albumin 4.7 g/dL (3.5-5.0) 08/05/19 22:30 Salicylates <1.0 mg/dL 08/05/19 22:30 Urine Opiates Screen Not Detected (NotDetected) 08/05/19 22:30 Ur Oxycodone Screen Not Detected (NotDetected) 08/05/19 22:30 Urine Methadone Screen Not Detected (NotDetected) 08/05/19 22:30 Ur Propoxyphene Screen Not Detected (NotDetected) 08/05/19 22:30 Acetaminophen <10.0 ug/mL 08/05/19 22:30 Ur Barbiturates Screen Not Detected (NotDetected) 08/05/19 22:30 U Tricyclic Antidepress Not Detected (NotDetected) 08/05/19 22:30 Ur Phencyclidine Scrn Not Detected (NotDetected) 08/05/19 22:30 Ur Amphetamines Screen Not Detected (NotDetected) 08/05/19 22:30 U Methamphetamines Scrn Not Detected (NotDetected) 08/05/19 22:30 U Benzodiazepines Scrn Not Detected (NotDetected) 08/05/19 22:30 Urine Cocaine Screen Not Detected (NotDetected) 08/05/19 22:30 U Marijuana (THC) Screen Detected (NotDetected) H 08/05/19 22:30 Serum Alcohol <10 mg/dL 08/05/19 22:30 08/06/19 12:11 IDENTIFYING DATA: Patient is a 23-year-old male with a history of depression and type 1 diabetes currently single with no kids living with his friend. HPI: Patient presented to the hospital last night after an overdose/suicide attempt at home. Patient has a significant history of diabetes mellitus and major depressive disorder and was recently discharged from the mental health unit on 08/04/2019 on trazodone 300 mg daily at bedtime melatonin Effexor XR 150 mg daily and BuSpar 20 mg twice a day. Patient states that after he left the hospital he states that he was feeling fine but claims that he was "overwhelmed with everything". He states that he has "too much to do" and feels that his life is not in order. He claims that he couldn't concentrate on anything and was crying all day. He states that he also got into a fight with his sister and also states that he used some marijuana at his friend's house. Patient claims that he began feeling suicidal and took 10 trazodone pills and also 20 units of insulin in a suicide attempt. He states that after he took it he was confused and only remembers getting into his friend's car and being dropped off at the hospital. He states that his mood is "depressed" and continues to endorse suicidal ideations however has no intent or plan in the hospital. He states that his sleep is fair. Patient denies any homicidal ideations intent or plan. At this time patient denies any auditory or visual hallucinations. Patient denies any flight of ideas racing thoughts and increased in goal directed behavior. Patient admits to using marijuana 1-2 times a week and states that he only takes "a couple of hits". He denies any other recreational drug use and denies cigarette use. PAST PSYCHIATRIC HISTORY: Patient states that he has history of depression and anxiety and has had multiple hospitalizations. Patient was taking trazodone 300 mg and Prozac at home. He was last admitted to the mental health unit on 08/04/2019. He admitted to several suicide attempts in the past. PMH: Diabetes mellitus type 1 uncontrolled, asthma, skin disorder ALLERGIES: as per EMR CHEMICAL DEPENDENCY HISTORY: as per HPI FAMILY PSYCHIATRIC/SUBSTANCE USE HISTORY: He states that one of his cousins committed suicide SOCIAL HISTORY: Patient is currently single has no kids is living with his friend at this time. 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 MENTAL STATUS EXAM: General Appearance: Patient appears to be stated age is alert, directable, and guarded. Patient appears to have poor hygiene and grooming. Behavior: Patient is seated without any agitated behavior. Speech: Patient's speech is fluent and nonpressured. Soft tone. Mood/Affect: Patient reports their mood is depressed, affect is congruent and constricted. Suicidality/Homicidality: Patient denies having any homicidal ideation intent or plan. He admits to suicidal ideations over no intent or plan. Perceptions: Patient denies any visual hallucinations and denies any auditory hallucinations Though content/process: There is no evidence of any delusional thought content and thought process is linear and goal-directed. Guarded. [place]. Memory and concentration: AOX3, grossly intact for the purposes of this session. Can spell "WORLD" backwards Judgment and insight: poor/impulsive. STRENGTHS/WEAKNESSES: strength is that patient is resilient. Weakness is that patient has poor judgment and insight. INTELLECT: average IMPRESSIONS: Major depressive disorder, without psychotic features Anxiety disorder and specified Cannabis abuse History of stimulant abuse. PLAN: -Patient is admitted under voluntary status to MHU for stabilization of psychiatric symptoms and safety. Patient signed adult voluntary form and medication consent and is placed in patient's chart. -Medications : Will hold off on starting psychiatric medications as patient recently overdosed on them and patient has a prolonged QTc interval. We'll plan to start Effexor tomorrow after EKG is done in the morning. -Patient was informed of the risks, benefits and side effects of the medication and patient verbally consented to taking the medications. Patient signed med consent form and was placed in chart. -Internal Medicine consult to perform medical evaluation and physical. Patient again has elevated white blood cell count. Patient is tachycardic. We'll check CBC and BMP tomorrow. EKG tomorrow morning. -NRT -not need to this patient does not smoke -SW on board for discharge planning. Encourage patient to participate in groups to work on coping skills. Asked social media assistant to proceed with guardianship and will look into residential treatment program for patient versus [facility]. 08/06/19 13:09
[2019-08-06 17:42] LABS: Glucose,Whole Blood 165 mg/dL (75-99)
[2019-08-06] MEDS ORDERED: SODIUM CHLORIDE 0.9% 1,000 ML IV ONE (18:00)
[2019-08-06 20:08] LABS: Glucose,Whole Blood 167 mg/dL (75-99)
[2019-08-06] MEDS ORDERED: traZODone HCL 100 MG TAB PO SCH (21:00)
[2019-08-06] MEDS ORDERED: MELATONIN 5 MG TABLET PO SCH (21:00)
--- NOTE | 2019-08-06 22:21 | CONS ---
CONSULTATION CHIEF COMPLAINT: Major depression with suicide attempt. HISTORY OF PRESENT ILLNESS: This is another admission for this gentleman. He just left the hospital. He apparently went home and overdosed on trazodone and insulin. REVIEW OF SYSTEMS: He is having no headaches, neurologic problems, chest pain, shortness of breath, abdominal pain, nausea, vomiting, diarrhea, dysuria, frequency, urgency, etc. Past medical history, family history, and personal and social histories are all otherwise unremarkable and noncontributory and unchanged. PHYSICAL EXAMINATION: Blood pressure is 127/64 with a pulse of 83, respirations 14. He is afebrile. In general he appeared to be slender and in no acute distress. Skin was dry and his atopic dermatitis was still present and more prominent on the legs. Head, ears, eyes, nose, mouth and throat were otherwise normal. Chest was clear. Cardiac exam was normal. Abdomen was flat, soft, nontender. Extremities were normal except for the atopic dermatitis. Neurologically he was intact. IMPRESSION: 1. Major depression with suicide attempt. 2. Uncontrolled type 1 insulin-dependent diabetes due to noncompliance. 3. Atopic dermatitis. PLAN: No change in his medication and program. MMODL / IJN: [id number] /
[2019-08-07 02:04] LABS: Glucose,Whole Blood 150 mg/dL (75-99)
[2019-08-07] MEDS ORDERED: INSULIN DETEMIR (LEVEMIR) 100 UNIT/ML SYR SQ SCH (07:00)
[2019-08-07 07:44] LABS: Glucose,Whole Blood 234 mg/dL (75-99)
[2019-08-07] MEDS: INSULIN ASPART (NovoLOG) 100 UNIT/ML VIAL SQ SCH ×7 (08:07→20:48)
[2019-08-07] MEDS: INSULIN DETEMIR (LEVEMIR) 100 UNIT/ML SYR SQ SCH (08:07)
[2019-08-07 09:14] LABS: HCT 44.2 % (39.0-53.0); HGB 14.3 gm/dL (13.0-17.5); MCHC 32.4 g/dL (31.0-37.0); MCV 92.5 fL (80.0-100.0); Mean Platelet Volume 6.8; Platelet Count 358 k/uL (150-450); RBC 4.78 m/uL (4.30-5.90)
[2019-08-07 09:17] LABS: African American GFR (CKD) >90 (>60 ml/min/1.73 sqM); Anion Gap 7 mmol/L; Blood Urea Nitrogen 17 mg/dL (9-20); Carbon Dioxide 28 mmol/L (22-30); Chloride 101 mmol/L (98-107); Glucose 229 mg/dL (74-99); Non-African American GFR(CKD) >90 (>60 ml/min/1.73 sqM); Potassium 4.4 mmol/L (3.5-5.1); Sodium 136 mmol/L (137-145)
[2019-08-07 09:18] LABS: Calcium 8.6 mg/dL (8.4-10.2)
[2019-08-07] MEDS: TRIAMCINOLONE 0.1% CREAM 80 GM TUBE TOPICAL PRN (12:36)
[2019-08-07 12:41] LABS: Glucose,Whole Blood 86 mg/dL (75-99)
[2019-08-07 12:54] LABS: Lymphocytes # (M) 2.94 k/uL (1.0-4.8); Monocytes # (M) 0.84 k/uL (0-1.0); Neutrophils # (M) 6.72 k/uL (1.3-7.7); Neutrophils % (M) 48 %; Nucleated Red Blood Cells 0 /100 WBC (0-0); Total Cells Counted 100
--- NOTE | 2019-08-07 13:02 | P.PN ---
Progress Note - Text Progress Note Date: 08/07/19 Interval History: Patient was seen talking with other patients on the unit and was directable and agreeable to speak with marine underwriter in the office. Patient claims that he feels better today in terms of his depression and states that he was able to sleep through the night a little bit better last night. He claims that he feels some guilt about what he done and has been trying to go to groups. Patient continues to agree that he cannot care for himself at this time and gets overwhelmed easily. He states that his anxiety level is elevated, has fair energy. She offered no other complaints and was agreeable to start his medications today. At this time patient denies any suicidal or homical ideations, intent or plan. Patient denies any auditory, visual hallucinations and denies any paranoia or delusions. Mental Status Exam: General Appearance: Patient appears to be stated age is alert, directable, and guarded. Patient appears to have poor hygiene and grooming. Behavior: Patient is seated without any agitated behavior. Speech: Patient's speech is fluent and nonpressured. Soft tone. Mood/Affect: Patient reports their mood is depressed, affect is congruent and constricted. Suicidality/Homicidality: Patient denies having any homicidal ideation intent or plan. He admits to suicidal ideations over no intent or plan. Perceptions: Patient denies any visual hallucinations and denies any auditory hallucinations Though content/process: There is no evidence of any delusional thought content and thought process is linear and goal-directed. Guarded. [place]. Memory and concentration: AOX3, grossly intact for the purposes of this session. Can spell "WORLD" backwards Judgment and insight: poor/impulsive. Assessment Major depressive disorder, without psychotic features Anxiety disorder and specified Cannabis abuse History of stimulant abuse. Plan: -Patient continues to meet criteria for inpatient psychiatric admission for symptom stabilization and safety. Patient has signed adult voluntary form and medication consent and was placed in patient's chart. -Medications: We'll start Effexor 37.5 mg daily today for mood/anxiety, we'll also start trazodone 100 mg daily at bedtime for mood/insomnia. We'll start BuSpar 15 mg twice a day for anxiety. -When necessary Ativan for agitation/aggression. -Internal Medicine consult to perform medical evaluation and physical. Patient has improving white blood cell count, we'll continue to follow. Reviewed vital signs. EKG reviewed this morning and has a QTC of 464 which is improved from yesterday. -NRT -this patient does not smoke -SW on board for discharge planning. Encouraged the patient to participate in milieu. Asked psychiatric social worker to proceed with guardianship and will look into residential treatment program for patient versus [facility].
[2019-08-07] MEDS: busPIRone HCl 5 MG TAB PO SCH ×2 (13:22→20:54)
[2019-08-07] MEDS: VENLAFAXINE HCL ER 37.5 MG CAP PO SCH (13:22)
[2019-08-07 15:26] LABS: Glucose,Whole Blood 82 mg/dL (75-99)
[2019-08-07 16:55] LABS: Glucose,Whole Blood 86 mg/dL (75-99)
[2019-08-07 17:52] LABS: Glucose,Whole Blood 103 mg/dL (75-99)
[2019-08-07 18:45] LABS: Glucose,Whole Blood 170 mg/dL (75-99)
[2019-08-07 19:55] LABS: Glucose,Whole Blood 278 mg/dL (75-99)
[2019-08-07] MEDS: traZODone HCL 100 MG TAB PO SCH (20:54)
[2019-08-08 07:43] LABS: Glucose,Whole Blood 316 mg/dL (75-99)
[2019-08-08] MEDS: INSULIN DETEMIR (LEVEMIR) 100 UNIT/ML SYR SQ SCH (08:01)
[2019-08-08] MEDS: INSULIN ASPART (NovoLOG) 100 UNIT/ML VIAL SQ SCH ×7 (08:02→21:32)
[2019-08-08] MEDS: VENLAFAXINE HCL ER 37.5 MG CAP PO SCH (10:20)
[2019-08-08] MEDS: busPIRone HCl 5 MG TAB PO SCH (10:20)
--- NOTE | 2019-08-08 10:55 | P.PN ---
Progress Note - Text Progress Note Date: 08/08/19 Interval History: Patient was seen laying down in his bed in the dark and was agreeable to speak to data analyst report writer in his room. Patient states that he has a headache this morning and claims that he wants to be away from the light. He states that he slept "on and off last night" but today states that his energy level is fair. Patient claims that he feels "about the same" with regards his depression and anxiety. He has been trying to go to groups whenever he can. He states that he has been taking his medications regularly as prescribed. At this time patient denies any suicidal or homical ideations, intent or plan. Patient denies any auditory, visual hallucinations and denies any paranoia or delusions. Mental Status Exam: General Appearance: Patient appears to be stated age is alert, directable, and attempts to cooperate. Patient appears to have poor hygiene and grooming. Behavior: Patient is seated without any agitated behavior. Speech: Patient's speech is fluent and nonpressured. Soft tone. Mood/Affect: Patient reports their mood is "the same", affect is congruent and constricted. Suicidality/Homicidality: Patient denies having any homicidal ideation intent or plan. He admits to suicidal ideations over no intent or plan. Perceptions: Patient denies any visual hallucinations and denies any auditory hallucinations Though content/process: There is no evidence of any delusional thought content and thought process is linear and goal-directed. [place]. Memory and concentration: AOX3, grossly intact for the purposes of this session. Can spell "WORLD" backwards Judgment and insight: poor/impulsive. Assessment Major depressive disorder, without psychotic features Anxiety disorder and specified Cannabis abuse History of stimulant abuse. Plan: -Patient continues to meet criteria for inpatient psychiatric admission for symptom stabilization and safety. Patient has signed adult voluntary form and medication consent and was placed in patient's chart. -Medications: Will increase Effexor 75 mg daily today for mood/anxiety, continue with trazodone 100 mg daily at bedtime for mood/insomnia. Increase BuSpar 20 mg twice a day for anxiety. -When necessary Ativan for agitation/aggression. -Internal Medicine consult to perform medical evaluation and physical. Patient has improving white blood cell count, we'll continue to follow. Reviewed vital signs. EKG on admission showed QTC of 464. -NRT -this patient does not smoke -SW on board for discharge planning. Encouraged the patient to participate in milieu. Asked renal social worker to proceed with guardianship and will look into residential treatment program for patient versus [facility].
[2019-08-08 12:37] LABS: Glucose,Whole Blood 252 mg/dL (75-99)
[2019-08-08 17:41] LABS: Glucose,Whole Blood 106 mg/dL (75-99)
[2019-08-08 20:14] LABS: Glucose,Whole Blood 130 mg/dL (75-99)
[2019-08-08] MEDS: busPIRone HCl 10 MG TAB PO SCH (22:18)
[2019-08-08] MEDS: MELATONIN 5 MG TABLET PO SCH (22:19)
[2019-08-08] MEDS: traZODone HCL 100 MG TAB PO SCH (22:19)
[2019-08-09 07:37] LABS: Glucose,Whole Blood 229 mg/dL (75-99)
[2019-08-09] MEDS: INSULIN ASPART (NovoLOG) 100 UNIT/ML VIAL SQ SCH ×7 (08:36→20:46)
[2019-08-09] MEDS: VENLAFAXINE HCL ER 75 MG CAP PO SCH (08:36)
[2019-08-09] MEDS: busPIRone HCl 10 MG TAB PO SCH ×2 (08:36→20:44)
[2019-08-09] MEDS: INSULIN DETEMIR (LEVEMIR) 100 UNIT/ML SYR SQ SCH (08:36)
[2019-08-09] MEDS: TRIAMCINOLONE 0.1% CREAM 80 GM TUBE TOPICAL PRN ×2 (08:38→16:28)
--- NOTE | 2019-08-09 10:40 | P.PN ---
Progress Note - Text Progress Note Date: 08/09/19 Interval History: Patient was seen laying down in his bed in the dark and was directable and agr eeable to speak to director underwriter sales in his room. Patient states that he is continuing to feel depressed and feels like he has a lack of energy. He states that he drank coffee this morning however feels like he has "stomach cramps" and is having diarrhea again. Patient asked to be restarted on his dicyclomine and cholestyramine again. He states that he slept throughout the night and denied any overnight complaints. He claims that his energy is lower and has not been going to groups. Patient claims that he feels "the same" with regards his depression and anxiety and was agreeable to have his medications increased. He stated that today he will be doing his guardianship hearing over the phone with the social work case manager and got the papers today. At this time patient denies any suicidal or homical ideations, intent or plan. Patient denies any auditory, visual hallucinations and denies any paranoia or delusions. Mental Status Exam: General Appearance: Patient appears to be stated age is alert, directable, and attempts to cooperate. Patient appears to have poor hygiene and grooming. Behavior: Patient is seated without any agitated behavior. Speech: Patient's speech is fluent and nonpressured. Soft tone. Mood/Affect: Patient reports their mood is "the same", affect is congruent and constricted. Suicidality/Homicidality: Patient denies having any homicidal ideation intent or plan. He admits to suicidal ideations over no intent or plan. Perceptions: Patient denies any visual hallucinations and denies any auditory hallucinations Though content/process: There is no evidence of any delusional thought content and thought process is linear and goal-directed. [place]. Memory and concentration: AOX3, grossly intact for the purposes of this session. Can spell "WORLD" backwards Judgment and insight: poor/impulsive. Assessment Major depressive disorder, without psychotic features Anxiety disorder and specified Cannabis abuse History of stimulant abuse. Plan: -Patient continues to meet criteria for inpatient psychiatric admission for symptom stabilization and safety. Patient has signed adult voluntary form and medication consent and was placed in patient's chart. -Medications: Will continue with Effexor 75 mg daily today for mood/anxiety, continue with trazodone 100 mg daily at bedtime for mood/insomnia. Continue with BuSpar 20 mg twice a day for anxiety. -Added dicyclomine and cholestyramine as was prescribed by gastroenterology on last admission for diarrhea/upset stomach. -When necessary Ativan for agitation/aggression. -Internal Medicine consult to perform medical evaluation and physical. Patient has improving white blood cell count, we'll continue to follow. Reviewed vital signs. EKG on admission showed QTC of 464. -NRT -this patient does not smoke -SW on board for discharge planning. Encouraged the patient to participate in milieu. Asked social work case manager to look into residential treatment program for patient versus [facility]. Patient has guardianship hearing today.
[2019-08-09] MEDS: DICYCLOMINE 20 MG TAB PO SCH ×3 (11:30→20:45)
[2019-08-09 12:41] LABS: Glucose,Whole Blood 185 mg/dL (75-99)
[2019-08-09 17:59] LABS: Glucose,Whole Blood 203 mg/dL (75-99)
[2019-08-09] MEDS: CHOLESTYRAMINE (WITH SUGAR) 4 GM PACKET PO SCH (18:09)
[2019-08-09 20:10] LABS: Glucose,Whole Blood 133 mg/dL (75-99)
[2019-08-09] MEDS: traZODone HCL 100 MG TAB PO SCH (20:44)
[2019-08-09] MEDS: MELATONIN 5 MG TABLET PO SCH (20:44)
[2019-08-10 07:51] LABS: Glucose,Whole Blood 206 mg/dL (75-99)
[2019-08-10] MEDS: INSULIN DETEMIR (LEVEMIR) 100 UNIT/ML SYR SQ SCH (07:54)
[2019-08-10] MEDS: INSULIN ASPART (NovoLOG) 100 UNIT/ML VIAL SQ SCH ×7 (07:54→21:46)
[2019-08-10] MEDS: busPIRone HCl 10 MG TAB PO SCH ×2 (09:15→21:26)
[2019-08-10] MEDS: DICYCLOMINE 20 MG TAB PO SCH ×3 (09:15→21:26)
[2019-08-10] MEDS: VENLAFAXINE HCL ER 75 MG CAP PO SCH (09:15)
[2019-08-10] MEDS: CHOLESTYRAMINE (WITH SUGAR) 4 GM PACKET PO SCH ×2 (09:15→16:39)
[2019-08-10] MEDS: GABAPENTIN 300 MG CAP PO SCH ×2 (10:36→21:27)
--- NOTE | 2019-08-10 10:38 | P.PN ---
Progress Note - Text Progress Note Date: 08/10/19 Interval History: Patient was seen participating in group this morning and was directable and ag reeable to speak to sports writer in the office. Patient states that he is continuing to feel depressed and hopeless and feels like he has a lack of energy. He states that in the morning it is difficult for him to wake up and claims that he only feels better in the evening time. He continues to have a negative outlook on life and states that he is too overwhelmed with the stressors. He spoke about his family problems and the different dynamics between people and how his sister is fighting for custody with her ex- of the niece and he feels that he is put in the middle of all of it. He states that his diarrhea and upset stomach has been gradually improving. Patient requested to be placed back on Neurontin for neuropathy. He states that he had a difficult time initiating sleep last night. Patient claims that he feels "all clouded" with regards his depression and anxiety. He stated that he didn't take part in the guardianship hearing over the phone however knows that he does have a guardian at this time. At this time patient denies any suicidal or homical ideations, intent or plan. Patient denies any auditory, visual hallucinations and denies any paranoia or delusions. Mental Status Exam: General Appearance: Patient appears to be tall and thin, stated age is alert, directable, and attempts to cooperate. Patient appears to have mildly improving hygiene and grooming. Behavior: Patient is seated without any agitated behavior. Speech: Patient's speech is fluent and nonpressured. Soft tone. Mood/Affect: Patient reports their mood is "depressed", affect is congruent and constricted. Suicidality/Homicidality: Patient denies having any homicidal ideation intent or plan. He admits to improving suicidal ideations however no intent or plan. Perceptions: Patient denies any visual hallucinations and denies any auditory hallucinations Though content/process: There is no evidence of any delusional thought content and thought process is linear and goal-directed. Memory and concentration: AOX3, grossly intact for the purposes of this session. Can spell "WORLD" backwards Judgment and insight: poor/impulsive, improving mildly. Assessment Major depressive disorder, without psychotic features Anxiety disorder and specified Cannabis abuse History of stimulant abuse. Plan: -Patient continues to meet criteria for inpatient psychiatric admission for symptom stabilization and safety. Patient has signed adult voluntary form and medication consent and was placed in patient's chart. -Medications: Will continue with Effexor 75 mg daily today for mood/anxiety, increased trazodone 200 mg daily at bedtime for mood/insomnia. Continue with BuSpar 20 mg twice a day for anxiety. -Continue with dicyclomine and cholestyramine as was prescribed by gastroenterology on last admission for diarrhea/upset stomach. Added on gabapentin 600 mg twice a day for neuropathy. -When necessary Ativan for agitation/aggression. -Internal Medicine consult to perform medical evaluation and physical. Patient has improving white blood cell count, we'll continue to follow, ordered CBC with differential for tomorrow morning. Reviewed vital signs. EKG on admission showed QTC of 464. -NRT -this patient does not smoke -SW on board for discharge planning. Encouraged the patient to participate in milieu. Patient has been added to the wait list for [facility]. Patient received temporary guardian on 08/09/2019.
[2019-08-10 12:57] LABS: Glucose,Whole Blood 151 mg/dL (75-99)
[2019-08-10 17:43] LABS: Glucose,Whole Blood 153 mg/dL (75-99)
[2019-08-10 20:03] LABS: Glucose,Whole Blood 120 mg/dL (75-99)
[2019-08-10] MEDS: MELATONIN 5 MG TABLET PO SCH (21:26)
[2019-08-10] MEDS: traZODone HCL 100 MG TAB PO SCH (21:26)
[2019-08-11 07:45] LABS: Glucose,Whole Blood 254 mg/dL (75-99)
[2019-08-11] MEDS: INSULIN ASPART (NovoLOG) 100 UNIT/ML VIAL SQ SCH ×6 (08:40→19:56)
[2019-08-11] MEDS: INSULIN DETEMIR (LEVEMIR) 100 UNIT/ML SYR SQ SCH (08:40)
[2019-08-11] MEDS: DICYCLOMINE 20 MG TAB PO SCH ×3 (08:41→17:31)
[2019-08-11] MEDS: busPIRone HCl 10 MG TAB PO SCH ×2 (08:41→20:53)
[2019-08-11] MEDS: GABAPENTIN 300 MG CAP PO SCH ×2 (08:42→20:54)
[2019-08-11] MEDS: VENLAFAXINE HCL ER 75 MG CAP PO SCH (08:42)
[2019-08-11] MEDS: TRIAMCINOLONE 0.1% CREAM 80 GM TUBE TOPICAL PRN (08:44)
[2019-08-11 08:59] LABS: Basophils # (A) 0.1 k/uL (0-0.2); Basophils % (A) 1 %; Eosinophils # (A) 4.2 k/uL (0-0.7); Eosinophils % (A) 30 %; HCT 46.6 % (39.0-53.0); Lymphocytes # (A) 2.7 k/uL (1.0-4.8); Lymphocytes % (A) 20 %; MCH 30.2 pg (25.0-35.0); MCHC 32.3 g/dL (31.0-37.0); MCV 93.6 fL (80.0-100.0); Mean Platelet Volume 6.9; Monocytes # (A) 0.9 k/uL (0-1.0); Monocytes % (A) 6 %; Neutrophils # (A) 5.6 k/uL (1.3-7.7); Neutrophils % (A) 41 %; Platelet Count 393 k/uL (150-450); RBC 4.98 m/uL (4.30-5.90); RDW 12.8 % (11.5-15.5); WBC 13.7 k/uL (3.8-10.6)
[2019-08-11] MEDS ORDERED: VENLAFAXINE HCL ER 75 MG CAP PO STA (09:48)
--- NOTE | 2019-08-11 09:53 | P.PN ---
Progress Note - Text Progress Note Date: 08/11/19 Interval History: Patient was seen lying in his bed this morning and was directable and agreeable to speak to caption writer in the office. Patient states that he did not go to group this morning as "it's the same thing happen to him too many times". Patient states that he is continuing to feel depressed however feels that today he is doing mildly better. Patient claims that his poor energy has been improving mildly. Patient was agreeable to have his Effexor increased today to 150 mg. Patient did state that he slept much better last night on the increase in his trazodone. He states that his diarrhea and upset stomach along with his numbness in his feet has been gradually improving. At this time patient denies any suicidal or homical ideations, intent or plan. Patient denies any auditory, visual hallucinations and denies any paranoia or delusions. Mental Status Exam: General Appearance: Patient appears to be tall and thin, stated age is alert, directable, and attempts to cooperate. Patient appears to have mildly improving hygiene and grooming. Behavior: Patient is seated without any agitated behavior. Speech: Patient's speech is fluent and nonpressured. Soft tone. Mood/Affect: Patient reports their mood is "depressed" however is improving mildly, affect is congruent and constricted. Suicidality/Homicidality: Patient denies having any homicidal ideation intent or plan. He admits to improving suicidal ideations however no intent or plan. Perceptions: Patient denies any visual hallucinations and denies any auditory hallucinations Though content/process: There is no evidence of any delusional thought content and thought process is linear and goal-directed. Memory and concentration: AOX3, grossly intact for the purposes of this session. Can spell "WORLD" backwards Judgment and insight: poor/impulsive, improving mildly. Assessment Major depressive disorder, without psychotic features Anxiety disorder and specified Cannabis abuse History of stimulant abuse. Plan: -Patient continues to meet criteria for inpatient psychiatric admission for symptom stabilization and safety. Patient has signed adult voluntary form and medication consent and was placed in patient's chart. -Medications: Will increase Effexor 150 mg daily today for mood/anxiety, continue with trazodone 200 mg daily at bedtime for mood/insomnia. Continue with BuSpar 20 mg twice a day for anxiety. -Continue with dicyclomine and cholestyramine as was prescribed by gastroenterology on last admission for diarrhea/upset stomach. Continue with gabapentin 600 mg twice a day for neuropathy. -When necessary Ativan for agitation/aggression. -Internal Medicine consult to perform medical evaluation and physical. Patient has improving white blood cell count, we'll continue to follow. Reviewed vital signs. EKG on admission showed QTC of 464. -NRT -this patient does not smoke -SW on board for discharge planning. Encouraged the patient to participate in milieu. Patient has been added to the wait list for [facility], patient cannot care for himself and cannot be discharged until he is found a spot at an [facility]. Patient received temporary guardian on 08/09/2019.
[2019-08-11] MEDS: CHOLESTYRAMINE (WITH SUGAR) 4 GM PACKET PO SCH ×2 (12:49→17:31)
[2019-08-11 12:50] LABS: Glucose,Whole Blood 120 mg/dL (75-99)
[2019-08-11 17:39] LABS: Glucose,Whole Blood 128 mg/dL (75-99)
[2019-08-11 19:57] LABS: Glucose,Whole Blood 98 mg/dL (75-99)
[2019-08-11] MEDS: traZODone HCL 100 MG TAB PO SCH (20:52)
[2019-08-11] MEDS: MELATONIN 5 MG TABLET PO SCH (20:52)
[2019-08-12 02:05] LABS: Glucose,Whole Blood 214 mg/dL (75-99)
[2019-08-12 08:04] LABS: Glucose,Whole Blood 193 mg/dL (75-99)
[2019-08-12] MEDS: INSULIN ASPART (NovoLOG) 100 UNIT/ML VIAL SQ SCH ×7 (08:04→20:55)
[2019-08-12] MEDS: INSULIN DETEMIR (LEVEMIR) 100 UNIT/ML SYR SQ SCH (08:04)
[2019-08-12] MEDS: busPIRone HCl 10 MG TAB PO SCH ×2 (08:05→20:54)
[2019-08-12] MEDS: VENLAFAXINE HCL ER 150 MG CAP PO SCH (08:05)
[2019-08-12] MEDS: GABAPENTIN 300 MG CAP PO SCH ×2 (08:05→20:54)
[2019-08-12] MEDS: DICYCLOMINE 20 MG TAB PO SCH ×3 (08:06→17:10)
[2019-08-12] MEDS: TRIAMCINOLONE 0.1% CREAM 80 GM TUBE TOPICAL PRN (09:02)
--- NOTE | 2019-08-12 10:14 | P.PN ---
Progress Note - Text Progress Note Date: 08/12/19 Interval History: Patient was seen participating in group this morning and was directable and ag reeable to speak to editorial writer in the office. She appears to have mildly improved hygiene. Patient states that he slept a lot better last night and states that he only woke up once. He claims that the trazodone 200 mg is helping him at this time with his mood and sleep. He states that he feels less depressed today and talk the Effexor 150 mg dose and is reporting no side effects. He states that he is continuing to be optimistic and asked about his placement options. He claims that his anxiety has been gradually improving on the current medications. Patient claims that his energy has been improving mildly. He states that his diarrhea and upset stomach are improving greatly on the current medications and states that the last time he had diarrhea was yesterday evening. At this time patient denies any suicidal or homical ideations, intent or plan. Patient denies any auditory, visual hallucinations and denies any paranoia or delusions. Mental Status Exam: General Appearance: Patient appears to be tall and thin, stated age is alert, directable, and attempts to cooperate. Patient appears to have mildly improving hygiene and grooming. Behavior: Patient is seated without any agitated behavior. Attempts to cooperate. Speech: Patient's speech is fluent and nonpressured. Soft tone. Mood/Affect: Patient reports their mood is improving mildly, affect is congruent and constricted. Suicidality/Homicidality: Patient denies having any homicidal ideation intent or plan. He admits to improving suicidal ideations however no intent or plan. Perceptions: Patient denies any visual hallucinations and denies any auditory hallucinations Though content/process: There is no evidence of any delusional thought content and thought process is linear and goal-directed. Memory and concentration: AOX3, grossly intact for the purposes of this session. Can spell "WORLD" backwards Judgment and insight: poor/impulsive, improving mildly. Assessment Major depressive disorder, without psychotic features Anxiety disorder and specified Cannabis abuse History of stimulant abuse. Plan: -Patient continues to meet criteria for inpatient psychiatric admission for symptom stabilization and safety. Patient has signed adult voluntary form and medication consent and was placed in patient's chart. -Medications: Will continue with Effexor 150 mg daily today for mood/anxiety, continue with trazodone 200 mg daily at bedtime for mood/insomnia. Continue with BuSpar 20 mg twice a day for anxiety. -Continue with dicyclomine and cholestyramine as was prescribed by gastroenterology on last admission for diarrhea/upset stomach. Continue with gabapentin 600 mg twice a day for neuropathy. -When necessary Ativan for agitation/aggression. -Internal Medicine consult to perform medical evaluation and physical. Patient has improving white blood cell count, we'll continue to follow. Reviewed vital signs. EKG on admission showed QTC of 464. -NRT -this patient does not smoke -SW on board for discharge planning. Encouraged the patient to participate in milieu. Patient is on the wait list for [facility], patient cannot care for himself and cannot be discharged until he is found a spot at an [facility]. Patient received temporary guardian on 08/09/2019.
[2019-08-12] MEDS: CHOLESTYRAMINE (WITH SUGAR) 4 GM PACKET PO SCH ×2 (11:02→17:10)
[2019-08-12 12:58] LABS: Glucose,Whole Blood 123 mg/dL (75-99)
[2019-08-12 14:39] LABS: Glucose,Whole Blood 245 mg/dL (75-99)
[2019-08-12 15:30] LABS: Glucose,Whole Blood 218 mg/dL (75-99)
[2019-08-12 17:44] LABS: Glucose,Whole Blood 85 mg/dL (75-99)
[2019-08-12 20:00] LABS: Glucose,Whole Blood 127 mg/dL (75-99)
[2019-08-12] MEDS: MELATONIN 5 MG TABLET PO SCH (20:55)
[2019-08-12] MEDS: traZODone HCL 100 MG TAB PO SCH (20:55)
[2019-08-13 06:23] LABS: Glucose,Whole Blood 186 mg/dL (75-99)
[2019-08-13 08:05] LABS: Glucose,Whole Blood 192 mg/dL (75-99)
[2019-08-13] MEDS: INSULIN ASPART (NovoLOG) 100 UNIT/ML VIAL SQ SCH ×7 (08:06→20:28)
[2019-08-13] MEDS: DICYCLOMINE 20 MG TAB PO SCH ×3 (08:07→16:37)
[2019-08-13] MEDS: GABAPENTIN 300 MG CAP PO SCH ×2 (08:07→20:30)
[2019-08-13] MEDS: VENLAFAXINE HCL ER 150 MG CAP PO SCH (08:07)
[2019-08-13] MEDS: INSULIN DETEMIR (LEVEMIR) 100 UNIT/ML SYR SQ SCH (08:07)
[2019-08-13] MEDS: busPIRone HCl 10 MG TAB PO SCH ×2 (08:07→20:30)
[2019-08-13] MEDS: CHOLESTYRAMINE (WITH SUGAR) 4 GM PACKET PO SCH ×2 (10:05→17:24)
--- NOTE | 2019-08-13 11:16 | P.PN ---
Progress Note - Text Progress Note Date: 08/13/19 Interval History: Patient was seen participating in group this morning doing activities and was directable and agreeable to speak to senior grant writer in the office. Patient appears to have mildly improved hygiene and has just showered. Patient states that he slept better last night and denied any overnight complaints and would like to keep his medications only they are. He states his mood has been gradually improving and he feels less depressed. He states that he feels "in a blog" being on the unit and is looking forward to his placement at [facility] and was asking more questions about it. He claims that his anxiety has been gradually improving on the current medications. Patient claims that his energy has been improving mildly. He states that he has been going to groups and trying to participate as best as he can. At this time patient denies any suicidal or homical ideations, intent or plan. Patient denies any auditory, visual hallucinations and denies any paranoia or delusions. Mental Status Exam: General Appearance: Patient appears to be tall and thin, stated age is alert, directable, and attempts to cooperate. Patient appears to have mildly improving hygiene and grooming. Behavior: Patient is seated without any agitated behavior. Attempts to cooperate. Speech: Patient's speech is fluent and nonpressured. Soft tone. Mood/Affect: Patient reports their mood is improving mildly, affect is congruent and constricted. Suicidality/Homicidality: Patient denies having any homicidal ideation intent or plan. He admits to improving suicidal ideations however no intent or plan. Perceptions: Patient denies any visual hallucinations and denies any auditory hallucinations Though content/process: There is no evidence of any delusional thought content and thought process is linear and goal-directed. Memory and concentration: AOX3, grossly intact for the purposes of this session. Can spell "WORLD" backwards Judgment and insight: poor, improving mildly. Assessment Major depressive disorder, without psychotic features Anxiety disorder and specified Cannabis abuse History of stimulant abuse. Plan: -Patient continues to meet criteria for inpatient psychiatric admission for symptom stabilization and safety. Patient has signed adult voluntary form and medication consent and was placed in patient's chart. -Medications: Will continue with Effexor 150 mg daily today for mood/anxiety, continue with trazodone 200 mg daily at bedtime for mood/insomnia. Continue with BuSpar 20 mg twice a day for anxiety. -Continue with dicyclomine and cholestyramine as was prescribed by gastroenterology on last admission for diarrhea/upset stomach. Continue with gabapentin 600 mg twice a day for neuropathy. -When necessary Ativan for agitation/aggression. -Internal Medicine consult to perform medical evaluation and physical. Patient has improving white blood cell count, we'll continue to follow. Reviewed vital signs. EKG on admission showed QTC of 464. -NRT -this patient does not smoke -SW on board for discharge planning. Encouraged the patient to participate in milieu. Patient is on the wait list for [facility] at this time, patient cannot care for himself and cannot be discharged until he is found a spot at an [facility]. Patient received temporary guardian on 08/09/2019.
[2019-08-13 12:02] LABS: Glucose,Whole Blood 67 mg/dL (75-99)
[2019-08-13 12:17] LABS: Glucose,Whole Blood 77 mg/dL (75-99)
[2019-08-13 12:41] LABS: Glucose,Whole Blood 156 mg/dL (75-99)
[2019-08-13 17:03] LABS: Glucose,Whole Blood 190 mg/dL (75-99)
[2019-08-13 20:10] LABS: Glucose,Whole Blood 189 mg/dL (75-99)
[2019-08-13] MEDS: traZODone HCL 100 MG TAB PO SCH (20:30)
[2019-08-13] MEDS: MELATONIN 5 MG TABLET PO SCH (20:30)
[2019-08-14 07:50] LABS: Glucose,Whole Blood 244 mg/dL (75-99)
[2019-08-14] MEDS: DICYCLOMINE 20 MG TAB PO SCH ×3 (07:55→17:09)
[2019-08-14] MEDS: CHOLESTYRAMINE (WITH SUGAR) 4 GM PACKET PO SCH ×2 (07:55→17:09)
[2019-08-14] MEDS: INSULIN ASPART (NovoLOG) 100 UNIT/ML VIAL SQ SCH ×7 (07:57→21:03)
[2019-08-14] MEDS: INSULIN DETEMIR (LEVEMIR) 100 UNIT/ML SYR SQ SCH (07:57)
[2019-08-14] MEDS: GABAPENTIN 300 MG CAP PO SCH ×2 (08:59→21:04)
[2019-08-14] MEDS: busPIRone HCl 10 MG TAB PO SCH ×2 (08:59→21:05)
[2019-08-14] MEDS: VENLAFAXINE HCL ER 150 MG CAP PO SCH (08:59)
--- NOTE | 2019-08-14 10:12 | P.PN ---
Progress Note - Text Interval history: The patient is found in group he follows me to an interview room. He indicates his mood is blah. He was hospitalized for an extended period of time was discharged and return to the hospital fairly quickly. He states he reports on it after an overdose with trazodone. It was determined that he requires a higher level of care upon discharge and they are seeking out intermediate placement. He indicates that he sleeping well to trazodone appetite stable. He did have a phone call with his mother via phone. Vital signs reviewed blood sugars reviewed. The patient is currently treated with Effexor XR BuSpar and trazodone at bedtime. Mental status exam: The patient is alert he is a tall thin male appearing his stated age. He demonstrates adequate hygiene grooming. Eye contact is appropriate speech is fluent spontaneous nonpressured. He reports a blah mood he still feels depressed he still has some hopelessness thinking. He reports feeling safe here in the hospital. He reports no homicidal ideation intent or plan. He endorses no auditory or visual hallucinations or any specific delusions. He demonstrates no tangential loose associations or flight of ideas. He does not appear hypomanic or manic. He maintains a constricted affect throughout the session. Insight and judgment limited. He demonstrates no verbal or physical aggressiveness. Plan: The patient will continue on his current psychotropic medication. We will monitor him for safety we will encourage full participation milieu. He continues to be hospitalized while in appropriate outpatient safety plan is developed. He requires continued psychiatric hospitalization for acute safety reasons.
[2019-08-14 12:27] LABS: Glucose,Whole Blood 198 mg/dL (75-99)
[2019-08-14 17:10] LABS: Glucose,Whole Blood 156 mg/dL (75-99)
[2019-08-14 20:18] LABS: Glucose,Whole Blood 102 mg/dL (75-99)
[2019-08-14] MEDS: MELATONIN 5 MG TABLET PO SCH (21:04)
[2019-08-14] MEDS: traZODone HCL 100 MG TAB PO SCH (21:05)
[2019-08-15 07:46] LABS: Glucose,Whole Blood 221 mg/dL (75-99)
[2019-08-15] MEDS: INSULIN DETEMIR (LEVEMIR) 100 UNIT/ML SYR SQ SCH (08:01)
[2019-08-15] MEDS: INSULIN ASPART (NovoLOG) 100 UNIT/ML VIAL SQ SCH ×7 (08:01→20:16)
[2019-08-15] MEDS: DICYCLOMINE 20 MG TAB PO SCH ×3 (08:02→17:05)
[2019-08-15] MEDS: busPIRone HCl 10 MG TAB PO SCH ×2 (08:02→20:39)
[2019-08-15] MEDS: VENLAFAXINE HCL ER 150 MG CAP PO SCH (08:02)
[2019-08-15] MEDS: GABAPENTIN 300 MG CAP PO SCH ×2 (08:02→20:41)
--- NOTE | 2019-08-15 10:43 | P.PN ---
Progress Note - Text Interval history: The patient is found in his room he refuses to speak with me an interview room. He indicates his stomach is upset and does not wish to talk today. He did indicate that today is "just another day" in terms of his mood. He reports feeling down. He did not attend groups so far this morning. He did eat breakfast. Staff report he slept 6 hours last evening. He states that he did have a phone conversation with his mother last evening and reports that those always go well. He has no questions or concerns regarding his psychotropic medication. Mental status exam: The patient is alert he is lying in bed he is covered up to his neck with a blanket. He makes brief eye contact. He initiates no spontaneous conversation he provides brief answers to questions. He indicates that he would prefer not to talk today. He indicates his mood is still depressed. He feels safe in the hospital in terms of suicidal ideation. He is reporting no thoughts of harming others she is reporting no auditory or visual hallucinations or any specific delusions. He demonstrates no verbal or physical aggressiveness he demonstrates no involuntary repetitive movements. Insight and judgment limited. Plan: The patient's will continue on his current psychotropic medications. We will monitor him for safety and encourage participation in the milieu. Vital signs reviewed. Efforts will continue in terms of finding appropriate placement for him upon discharge.
[2019-08-15] MEDS: CHOLESTYRAMINE (WITH SUGAR) 4 GM PACKET PO SCH ×2 (11:16→17:05)
[2019-08-15 12:23] LABS: Glucose,Whole Blood 189 mg/dL (75-99)
[2019-08-15 17:04] LABS: Glucose,Whole Blood 122 mg/dL (75-99)
[2019-08-15] MEDS: TRIAMCINOLONE 0.1% CREAM 80 GM TUBE TOPICAL PRN (17:09)
[2019-08-15 19:46] LABS: Glucose,Whole Blood 90 mg/dL (75-99)
[2019-08-15] MEDS: MELATONIN 5 MG TABLET PO SCH (20:39)
[2019-08-15] MEDS: traZODone HCL 100 MG TAB PO SCH (20:39)
[2019-08-16] MEDS: DICYCLOMINE 20 MG TAB PO SCH ×3 (07:50→17:09)
[2019-08-16] MEDS: INSULIN DETEMIR (LEVEMIR) 100 UNIT/ML SYR SQ SCH (07:52)
[2019-08-16] MEDS: INSULIN ASPART (NovoLOG) 100 UNIT/ML VIAL SQ SCH ×7 (07:52→20:36)
[2019-08-16] MEDS: VENLAFAXINE HCL ER 150 MG CAP PO SCH (07:53)
[2019-08-16] MEDS: GABAPENTIN 300 MG CAP PO SCH ×2 (07:53→20:33)
[2019-08-16] MEDS: busPIRone HCl 10 MG TAB PO SCH ×2 (07:53→20:31)
[2019-08-16 07:56] LABS: Glucose,Whole Blood 278 mg/dL (75-99)
[2019-08-16] MEDS: CHOLESTYRAMINE (WITH SUGAR) 4 GM PACKET PO SCH ×2 (11:18→17:09)
--- NOTE | 2019-08-16 11:50 | P.PN ---
Progress Note - Text Progress Note Date: 08/16/19 Interval History: Patient was seen participating in activities group this morning and was direct able and agreeable to speak to television writer in the office. Patient appears to have mildly improved hygiene and appeared to have an improved affect. He states that his weekend went ok and did not offer any complaints. He states that he isn't taking his medications regularly however did request to have his cholestyramine changed as to when he receives it as he states that the food trays have been earlier. Patient states that he slept better last night on the current dose of trazodone and slept throughout the night. He states his mood has been gradually improving and he feels less depressed. Patient spoke about watching the news about the virus and expressed his concerns about the unit and also the different patients. He claims that his anxiety has been gradually improving. Patient claims that his energy has been improving mildly. He states that he has been going to groups and trying to participate as best as he can. At this time patient denies any suicidal or homical ideations, intent or plan. Patient denies any auditory, visual hallucinations and denies any paranoia or delusions. Mental Status Exam: General Appearance: Patient appears to be tall and thin, stated age is alert, di rectable, and attempts to cooperate. Patient appears to have mildly improving hygiene and grooming. Behavior: Patient is seated without any agitated behavior. Attempts to cooperate. Speech: Patient's speech is fluent and nonpressured. Mood/Affect: Patient reports their mood is improving mildly, affect is congruent and constricted. Suicidality/Homicidality: Patient denies having any homicidal ideation intent or plan. He admits to improving suicidal ideations however no intent or plan. Perceptions: Patient denies any visual hallucinations and denies any auditory hallucinations Though content/process: There is no evidence of any delusional thought content and thought process is linear and goal-directed. More future oriented. Memory and concentration: AOX3, grossly intact for the purposes of this session. Can spell "WORLD" backwards Judgment and insight: Chronically poor, improving mildly. Assessment Major depressive disorder, without psychotic features Anxiety disorder and specified Cannabis abuse History of stimulant abuse. Plan: -Patient continues to meet criteria for inpatient psychiatric admission for symptom stabilization and safety. Patient has signed adult voluntary form and medication consent and was placed in patient's chart. -Medications: Will continue with Effexor 150 mg daily today for mood/anxiety, continue with trazodone 200 mg daily at bedtime for mood/insomnia. Continue with BuSpar 20 mg twice a day for anxiety. -Continue with dicyclomine and cholestyramine as was prescribed by gastroenterology on last admission for diarrhea/upset stomach. Continue with gabapentin 600 mg twice a day for neuropathy. -When necessary Ativan for agitation/aggression. -Internal Medicine consult to perform medical evaluation and physical. Reviewed vital signs. EKG on admission showed QTC of 464. -NRT -this patient does not smoke -SW on board for discharge planning. Encouraged the patient to participate in milieu. Patient continues to be on the wait list for [facility] at this time. Patient cannot care for himself and cannot be discharged until he is found a spot at an [facility]. Patient received temporary guardian on 08/09/2019.
[2019-08-16 12:40] LABS: Glucose,Whole Blood 142 mg/dL (75-99)
[2019-08-16 17:13] LABS: Glucose,Whole Blood 155 mg/dL (75-99)
[2019-08-16 20:01] LABS: Glucose,Whole Blood 115 mg/dL (75-99)
[2019-08-16] MEDS: MELATONIN 5 MG TABLET PO SCH (20:32)
[2019-08-16] MEDS: traZODone HCL 100 MG TAB PO SCH (20:32)
[2019-08-17] MEDS: CHOLESTYRAMINE (WITH SUGAR) 4 GM PACKET PO SCH ×2 (06:29→15:44)
[2019-08-17 07:40] LABS: Glucose,Whole Blood 265 mg/dL (75-99)
[2019-08-17] MEDS: INSULIN ASPART (NovoLOG) 100 UNIT/ML VIAL SQ SCH ×7 (07:45→20:01)
[2019-08-17] MEDS: INSULIN DETEMIR (LEVEMIR) 100 UNIT/ML SYR SQ SCH (07:46)
[2019-08-17] MEDS: DICYCLOMINE 20 MG TAB PO SCH ×4 (07:46→17:47)
[2019-08-17] MEDS: GABAPENTIN 300 MG CAP PO SCH ×2 (07:48→20:30)
[2019-08-17] MEDS: VENLAFAXINE HCL ER 150 MG CAP PO SCH (07:48)
[2019-08-17] MEDS: busPIRone HCl 10 MG TAB PO SCH ×2 (07:49→20:31)
--- NOTE | 2019-08-17 11:13 | P.PN ---
Progress Note - Text Progress Note Date: 08/17/19 Interval History: Patient was seen laying down in his bed this morning and was directable and ag reeable to speak to contract writer in the office. Patient appears to have mildly improved hygiene and appeared to have a more improved slightly brighter affect this morning. He states that he is concerned about the wait time to get into the [facility] home and claims that he feels it is making him anxious. He requested to have his BuSpar increased at this time to help him with his anxiety. He states that his mood has been gradually improving with the current medications. Patient states that he slept well last night with no overnight complaints. Patient continues to ask questions about the [facility] home and how long the stay is. Patient appeared to be agreeable with continuing on with treatment. Patient claims that his energy has been improving mildly. He states that he has been going to groups and trying to participate whenever he can. At this time patient denies any suicidal or homical ideations, intent or plan. Patient denies any auditory, visual hallucinations and denies any paranoia or delusions. Mental Status Exam: General Appearance: Patient appears to be tall and thin, stated age is alert, directable, and attempts to cooperate. Patient appears to have mildly improving hygiene and grooming. Behavior: Patient is seated without any agitated behavior. Attempts to cooperate. Speech: Patient's speech is fluent and nonpressured. Mood/Affect: Patient reports their mood is improving mildly, affect is congruent and constricted. Suicidality/Homicidality: Patient denies having any homicidal ideation intent or plan. Denies any suicidal ideations no intent or plan. Perceptions: Patient denies any visual hallucinations and denies any auditory hallucinations Though content/process: There is no evidence of any delusional thought content and thought process is linear and goal-directed. More future oriented. Memory and concentration: AOX3, grossly intact for the purposes of this session. Can spell "WORLD" backwards Judgment and insight: Chronically poor, improving mildly. Assessment Major depressive disorder, without psychotic features Anxiety disorder and specified Cannabis abuse History of stimulant abuse. Plan: -Patient continues to meet criteria for inpatient psychiatric admission for symptom stabilization and safety. Patient has signed adult voluntary form and medication consent and was placed in patient's chart. -Medications: Will continue with Effexor 150 mg daily today for mood/anxiety, continue with trazodone 200 mg daily at bedtime for mood/insomnia. Increased BuSpar 30 mg twice a day for anxiety. -Continue with dicyclomine and cholestyramine as was prescribed by gastroenterology on last admission for diarrhea/upset stomach. Continue with gabapentin 600 mg twice a day for neuropathy. -When necessary Ativan for agitation/aggression. -Internal Medicine consult to perform medical evaluation and physical. Reviewed vital signs. EKG on admission showed QTC of 464. -NRT -this patient does not smoke -SW on board for discharge planning. Encouraged the patient to participate in milieu. Patient continues to be on the wait list for [facility] at this time. Patient cannot care for himself and cannot be discharged until he is found a spot at an [facility]. Patient received temporary guardian on 08/09/2019.
[2019-08-17 12:40] LABS: Glucose,Whole Blood 114 mg/dL (75-99)
[2019-08-17 17:05] LABS: Glucose,Whole Blood 107 mg/dL (75-99)
[2019-08-17 20:01] LABS: Glucose,Whole Blood 114 mg/dL (75-99)
[2019-08-17] MEDS: MELATONIN 5 MG TABLET PO SCH (20:30)
[2019-08-17] MEDS: traZODone HCL 100 MG TAB PO SCH (20:31)
[2019-08-18] MEDS: CHOLESTYRAMINE (WITH SUGAR) 4 GM PACKET PO SCH ×2 (06:17→16:26)
[2019-08-18 07:56] LABS: Glucose,Whole Blood 271 mg/dL (75-99)
[2019-08-18] MEDS: INSULIN ASPART (NovoLOG) 100 UNIT/ML VIAL SQ SCH ×7 (07:56→20:26)
[2019-08-18] MEDS: INSULIN DETEMIR (LEVEMIR) 100 UNIT/ML SYR SQ SCH (07:56)
[2019-08-18] MEDS: busPIRone HCl 10 MG TAB PO SCH ×2 (07:57→21:10)
[2019-08-18] MEDS: VENLAFAXINE HCL ER 150 MG CAP PO SCH (07:57)
[2019-08-18] MEDS: DICYCLOMINE 20 MG TAB PO SCH ×3 (07:57→17:09)
[2019-08-18] MEDS: GABAPENTIN 300 MG CAP PO SCH ×2 (07:59→21:11)
[2019-08-18 12:21] LABS: Glucose,Whole Blood 176 mg/dL (75-99)
--- NOTE | 2019-08-18 14:06 | P.PN ---
Subjective The patient was seen and chart was reviewed. The patient continues to report feeling depressed and anxious. ''Life is like a blob'' The patient reports good sleep and appetite. He denies any crying spells or panic attacks at this time. The patient continues to report dysphoric mood and feelings of hopelessness and helplessness. The patient denies any auditory or visual hallucinations at this time. The patient reports increased anxiety at night and is requesting Ativan to help him with anxiety. The patient denies any active suicidal or homicidal ideations at this time. The patient denies any paranoia at this time. Mental Status Exam: General Appearance: Patient appears to be tall and thin, stated age is alert, directable, and attempts to cooperate. Behavior: Patient is seated without any agitated behavior. Attempts to cooperate. Speech: Patient's speech is fluent and nonpressured. Mood/Affect: Patient reports their mood is improving mildly, affect is congruent and constricted. Suicidality/Homicidality: Patient denies having any homicidal ideation intent or plan. Denies any suicidal ideations no intent or plan. Perceptions: Patient denies any visual hallucinations and denies any auditory hallucinations Though content/process: There is no evidence of any delusional thought content and thought process is linear and goal-directed. More future oriented. Memory and concentration: AOX3, grossly intact for the purposes of this session. Judgment and insight: Chronically poor, improving mildly. Assessment Major depressive disorder, without psychotic features Anxiety disorder and specified Cannabis abuse History of stimulant abuse. Plan: -Patient continues to meet criteria for inpatient psychiatric admission for sym ptom stabilization and safety. Patient has signed adult voluntary form and medication consent and was placed in patient's chart. -Medications: Will continue with Effexor 150 mg daily today for mood/anxiety, continue with trazodone 200 mg daily at bedtime for mood/insomnia. Increased BuSpar 30 mg twice a day for anxiety. -Continue with dicyclomine and cholestyramine as was prescribed by gastroente rology on last admission for diarrhea/upset stomach. Continue with gabapentin 600 mg twice a day for neuropathy. -When necessary Ativan for agitation/aggression. -Internal Medicine consult to perform medical evaluation and physical. Reviewed vital signs. EKG on admission showed QTC of 464. -NRT -this patient does not smoke -SW on board for discharge planning. Encouraged the patient to participate in milieu. Patient continues to be on the wait list for [facility] at this time. Patient cannot care for himself and cannot be discharged until he is found a spot at an [facility]. Patient received temporary guardian on 08/09/2019. Objective - Vital Signs Vital signs: Vital Signs Temp 98.0 F 08/18/19 06:08 Pulse 101 H 08/18/19 06:08 Resp 14 08/18/19 06:08 BP 108/63 08/18/19 06:08 Pulse Ox 94 L 08/16/19 07:19 - Labs CBC & Chem 7: 08/11/19 07:24 08/07/19 08:48 Labs: Abnormal Lab Results - Last 24 Hours (Table) 08/17/19 08/17/19 08/18/19 Range/Units 17:03 20:00 07:55 POC Glucose (mg/dL) 107 H 114 H 271 H (75-99) mg/dL 08/18/19 Range/Units 12:19 POC Glucose (mg/dL) 176 H (75-99) mg/dL
[2019-08-18 15:50] LABS: Glucose,Whole Blood 76 mg/dL (75-99)
[2019-08-18 16:27] LABS: Glucose,Whole Blood 128 mg/dL (75-99)
[2019-08-18 17:06] LABS: Glucose,Whole Blood 116 mg/dL (75-99)
[2019-08-18 20:02] LABS: Glucose,Whole Blood 155 mg/dL (75-99)
[2019-08-18] MEDS: traZODone HCL 100 MG TAB PO SCH (21:11)
[2019-08-18] MEDS: MELATONIN 5 MG TABLET PO SCH (21:11)
[2019-08-19] MEDS: CHOLESTYRAMINE (WITH SUGAR) 4 GM PACKET PO SCH ×2 (06:24→16:28)
[2019-08-19 07:50] LABS: Glucose,Whole Blood 312 mg/dL (75-99)
[2019-08-19] MEDS: INSULIN ASPART (NovoLOG) 100 UNIT/ML VIAL SQ SCH ×7 (08:02→20:38)
[2019-08-19] MEDS: busPIRone HCl 10 MG TAB PO SCH ×2 (08:03→20:55)
[2019-08-19] MEDS: DICYCLOMINE 20 MG TAB PO SCH ×3 (08:03→17:16)
[2019-08-19] MEDS: INSULIN DETEMIR (LEVEMIR) 100 UNIT/ML SYR SQ SCH (08:03)
[2019-08-19] MEDS: VENLAFAXINE HCL ER 150 MG CAP PO SCH (08:03)
[2019-08-19] MEDS: GABAPENTIN 300 MG CAP PO SCH ×2 (08:05→20:56)
--- NOTE | 2019-08-19 11:32 | P.PN ---
Subjective Progress Note Date: 08/19/19 The patient was seen and chart was reviewed. The patient reports slow improvement in his mood and functioning. He reports fair sleep last night but complained of a few bad dreams and nightmares but attributed it to watching a scary show before he went to bed. The patient denies any crying spells or panic attacks. The patient continues to report feeling anxious mostly towards the end of the day and is requesting something that he could take as needed the patient denies any auditory or visual hallucinations at this time. The patient denies any active suicidal or homicidal ideations at this time. The patient denies any paranoia at this time. Mental Status Exam: General Appearance: Patient appears to be tall and thin, stated age is alert, directable, and attempts to cooperate. Behavior: Patient is seated without any agitated behavior. Attempts to cooperate. Speech: Patient's speech is fluent and nonpressured. Mood/Affect: Patient reports their mood is improving mildly, affect is congruent and constricted. Suicidality/Homicidality: Patient denies having any homicidal ideation intent or plan. Denies any suicidal ideations no intent or plan. Perceptions: Patient denies any visual hallucinations and denies any auditory hallucinations Though content/process: There is no evidence of any delusional thought content and thought process is linear and goal-directed. More future oriented. Memory and concentration: AOX3, grossly intact for the purposes of this session. Judgment and insight: Chronically poor, improving mildly. Assessment Major depressive disorder, without psychotic features Anxiety disorder and specified Cannabis abuse History of stimulant abuse. Objective - Vital Signs Vital signs: Vital Signs Temp 98.0 F 08/19/19 07:20 Pulse 99 08/19/19 07:20 Resp 18 08/19/19 07:20 BP 110/57 08/19/19 07:20 Pulse Ox 99 08/18/19 19:03 - Labs CBC & Chem 7: 08/11/19 07:24 08/07/19 08:48 Labs: Abnormal Lab Results - Last 24 Hours (Table) 08/18/19 08/18/19 08/18/19 Range/Units 12:19 16:25 17:03 POC Glucose (mg/dL) 176 H 128 H 116 H (75-99) mg/dL 08/18/19 08/19/19 Range/Units 20:01 07:39 POC Glucose (mg/dL) 155 H 312 H (75-99) mg/dL Assessment and Plan Plan: Plan: -Patient continues to meet criteria for inpatient psychiatric admission for symptom stabilization and safety. Patient has signed adult voluntary form and medication consent and was placed in patient's chart. Will start Seroquel 25 mg PO tid PRN. -Medications: Will continue with Effexor 150 mg daily today for mood/anxiety, continue with trazodone 200 mg daily at bedtime for mood/insomnia. Increased BuSpar 30 mg twice a day for anxiety. -Continue with dicyclomine and cholestyramine as was prescribed by gastroenterology on last admission for diarrhea/upset stomach. Continue with gabapentin 600 mg twice a day for neuropathy. -When necessary Ativan for agitation/aggression. -Internal Medicine consult to perform medical evaluation and physical. Reviewed vital signs. EKG on admission showed QTC of 464. -NRT -this patient does not smoke -SW on board for discharge planning. Encouraged the patient to participate in milieu. Patient continues to be on the wait list for [facility] at this time. Patient cannot care for himself and cannot be discharged until he is found a spot at an [facility]. Patient received temporary guardian on 08/09/2019.
[2019-08-19] MEDS: TRIAMCINOLONE 0.1% CREAM 80 GM TUBE TOPICAL PRN (12:35)
[2019-08-19 12:37] LABS: Glucose,Whole Blood 136 mg/dL (75-99)
[2019-08-19 17:23] LABS: Glucose,Whole Blood 150 mg/dL (75-99)
[2019-08-19 20:10] LABS: Glucose,Whole Blood 100 mg/dL (75-99)
[2019-08-19] MEDS: MELATONIN 5 MG TABLET PO SCH (20:54)
[2019-08-19] MEDS: traZODone HCL 100 MG TAB PO SCH (20:54)
[2019-08-19] MEDS: QUEtiapine 25 MG TAB PO PRN (22:06)
[2019-08-20] MEDS: CHOLESTYRAMINE (WITH SUGAR) 4 GM PACKET PO SCH ×2 (06:51→16:23)
[2019-08-20 07:42] LABS: Glucose,Whole Blood 260 mg/dL (75-99)
[2019-08-20] MEDS: INSULIN ASPART (NovoLOG) 100 UNIT/ML VIAL SQ SCH ×7 (07:52→20:14)
[2019-08-20] MEDS: DICYCLOMINE 20 MG TAB PO SCH ×3 (07:52→16:22)
[2019-08-20] MEDS: busPIRone HCl 10 MG TAB PO SCH ×2 (07:53→20:34)
[2019-08-20] MEDS: GABAPENTIN 300 MG CAP PO SCH ×3 (07:53→20:37)
[2019-08-20] MEDS: INSULIN DETEMIR (LEVEMIR) 100 UNIT/ML SYR SQ SCH (07:53)
[2019-08-20] MEDS: VENLAFAXINE HCL ER 150 MG CAP PO SCH (07:54)
[2019-08-20 12:01] LABS: Glucose,Whole Blood 112 mg/dL (75-99)
--- NOTE | 2019-08-20 12:14 | P.PN ---
Subjective Progress Note Date: 08/20/19 The patient was seen and chart was reviewed. The patient continues to report slow improvement in his mood and functioning. He reports good sleep and appetite but reports vivid dream although denies any nightmares. The patient denies any crying spells or panic attacks. The patient continues to report fe eling anxious mostly towards the end of the day. The patient denies any auditory or visual hallucinations at this time. The patient denies any active suicidal or homicidal ideations at this time. The patient denies any paranoia at this time. Objective - Vital Signs Vital signs: Vital Signs Temp 98.3 F 08/20/19 06:00 Pulse 101 H 08/20/19 06:00 Resp 14 08/20/19 06:00 BP 108/52 08/20/19 06:00 Pulse Ox 99 08/19/19 18:34 - Exam Mental Status Exam: General Appearance: Patient appears to be tall and thin, stated age is alert, directable, and attempts to cooperate. Behavior: Patient is seated without any agitated behavior. Attempts to cooperate. Speech: Patient's speech is fluent and nonpressured. Mood/Affect: Patient reports their mood is improving mildly, affect is congruent and constricted. Suicidality/Homicidality: Patient denies having any homicidal ideation intent or plan. Denies any suicidal ideations no intent or plan. Perceptions: Patient denies any visual hallucinations and denies any auditory hallucinations Though content/process: There is no evidence of any delusional thought content and thought process is linear and goal-directed. More future oriented. Memory and concentration: AOX3, grossly intact for the purposes of this session. Judgment and insight: Chronically poor, improving mildly. - Labs CBC & Chem 7: 08/11/19 07:24 08/07/19 08:48 Labs: Abnormal Lab Results - Last 24 Hours (Table) 08/19/19 08/19/19 08/19/19 Range/Units 12:35 17:13 20:03 POC Glucose (mg/dL) 136 H 150 H 100 H (75-99) mg/dL 08/20/19 Range/Units 07:40 POC Glucose (mg/dL) 260 H (75-99) mg/dL Assessment and Plan Assessment: Assessment Major depressive disorder, without psychotic features Anxiety disorder and specified Cannabis abuse History of stimulant abuse. Plan: Plan: -Patient continues to meet criteria for inpatient psychiatric admission for symptom stabilization and safety. Patient has signed adult voluntary form and medication consent and was placed in patient's chart. Will start Seroquel 25 mg PO tid PRN. -Medications: Will continue with Effexor 150 mg daily today for mood/anxiety, continue with trazodone 200 mg daily at bedtime for mood/insomnia. Increased BuSpar 30 mg twice a day for anxiety. -Continue with dicyclomine and cholestyramine as was prescribed by [facility] oenterology on last admission for diarrhea/upset stomach. -Increase gabapentin 600 mg three times a day for anxiety. -When necessary Ativan for agitation/aggression. -Internal Medicine consult to perform medical evaluation and physical. Reviewed vital signs. EKG on admission showed QTC of 464. -NRT -this patient does not smoke -SW on board for discharge planning. Encouraged the patient to participate in milieu. Patient continues to be on the wait list for [facility] at this time. Patient cannot care for himself and cannot be discharged until he is found a spot at an [facility]. Patient received temporary guardian on 08/09/2019.
[2019-08-20] MEDS: QUEtiapine 25 MG TAB PO PRN ×2 (12:18→20:35)
[2019-08-20 15:56] LABS: Glucose,Whole Blood 64 mg/dL (75-99)
[2019-08-20 16:18] LABS: Glucose,Whole Blood 87 mg/dL (75-99)
[2019-08-20 17:30] LABS: Glucose,Whole Blood 135 mg/dL (75-99)
[2019-08-20 20:08] LABS: Glucose,Whole Blood 172 mg/dL (75-99)
[2019-08-20] MEDS: MELATONIN 5 MG TABLET PO SCH (20:35)
[2019-08-20] MEDS: traZODone HCL 100 MG TAB PO SCH (20:35)
[2019-08-21] MEDS: CHOLESTYRAMINE (WITH SUGAR) 4 GM PACKET PO SCH ×2 (06:16→16:32)
[2019-08-21] MEDS: GABAPENTIN 300 MG CAP PO SCH ×3 (07:42→20:14)
[2019-08-21] MEDS: DICYCLOMINE 20 MG TAB PO SCH ×3 (07:42→16:32)
[2019-08-21] MEDS: VENLAFAXINE HCL ER 150 MG CAP PO SCH (07:43)
[2019-08-21] MEDS: busPIRone HCl 10 MG TAB PO SCH ×2 (07:43→20:14)
[2019-08-21 07:48] LABS: Glucose,Whole Blood 219 mg/dL (75-99)
[2019-08-21] MEDS: INSULIN DETEMIR (LEVEMIR) 100 UNIT/ML SYR SQ SCH (07:49)
[2019-08-21] MEDS: INSULIN ASPART (NovoLOG) 100 UNIT/ML VIAL SQ SCH ×7 (07:49→20:12)
[2019-08-21] MEDS ORDERED: INSULIN ASPART (NovoLOG) 100 UNIT/ML VIAL SQ SCH ×2 (12:00→16:45)
--- NOTE | 2019-08-21 12:22 | P.PN ---
Subjective Progress Note Date: 08/21/19 Principal diagnosis: Major depressive disorder, without psychotic features, Anxiety disorder unspecified, Cannabis abuse, History of stimulant abuse I reviewed the medical record and interviewed the patient. He is a 24-year-old male admitted to the psychiatric unit voluntarily. He denied current problems or concerns other than waiting placement in a care home. She does not feel that he'll be in the hospital longer because his "name" is at the top of list of client's looking for care home placement. He denied feeling depressed or having thoughts of or suicide. Objective - Vital Signs Vital signs: Vital Signs Temp 97.7 F 08/21/19 06:20 Pulse 92 08/21/19 06:20 Resp 14 08/21/19 06:20 BP 91/53 08/21/19 06:20 Pulse Ox 99 08/19/19 18:34 - Exam He presented as a tall thin casually groomed 24-year-old male who was pleasant on approach. He made eye contact and attended to the interview. He had a bright facial expression. He was alert and oriented to person, place and time. He showed no abnormality of psychomotor activity. Speech was spontaneous with normal rate and rhythm. His affect was blunted but stable and appropriate. She denied suicidal ideation, wishes or homicidal ideation. He denied feeling hopeless, helpless or worthless. He did not express ideas reference, paranoid ideation or delusions. His thinking was concrete. Associations were coherent and logical. He denied hallucinations did not appear to be responding to internal stimuli. - Labs CBC & Chem 7: 08/11/19 07:24 08/07/19 08:48 Labs: Abnormal Lab Results - Last 24 Hours (Table) 08/20/19 08/20/19 08/20/19 Range/Units 11:59 15:54 17:29 POC Glucose (mg/dL) 112 H 64 L 135 H (75-99) mg/dL 08/20/19 08/21/19 Range/Units 20:07 07:37 POC Glucose (mg/dL) 172 H 219 H (75-99) mg/dL Assessment and Plan Assessment: He is moderately mentally ill much improve from admission. We are awaiting placement in a care home Plan: Continue inpatient psychiatric hospitalization pending placement. Continue BuSpar 30 mg by mouth twice a day, Neurontin 600 mg 3 times a day, melatonin 5 mg at bedtime, Seroquel 25 mg by mouth 3 times a day when necessary for anxiety, trazodone 200 mg at bedtime and Effexor XR 150 mg daily. Encourage participation in therapeutic groups and activities. Evaluate clinical status response to treatment daily basis.
[2019-08-21 12:24] LABS: Glucose,Whole Blood 99 mg/dL (75-99)
[2019-08-21] MEDS: QUEtiapine 25 MG TAB PO PRN ×2 (13:31→20:14)
[2019-08-21 16:19] LABS: Glucose,Whole Blood 53 mg/dL (75-99)
[2019-08-21 16:39] LABS: Glucose,Whole Blood 102 mg/dL (75-99)
[2019-08-21 17:19] LABS: Glucose,Whole Blood 180 mg/dL (75-99)
[2019-08-21 20:11] LABS: Glucose,Whole Blood 159 mg/dL (75-99)
[2019-08-21] MEDS: MELATONIN 5 MG TABLET PO SCH (20:14)
[2019-08-21] MEDS: traZODone HCL 100 MG TAB PO SCH (20:15)
[2019-08-22] MEDS: CHOLESTYRAMINE (WITH SUGAR) 4 GM PACKET PO SCH ×2 (06:27→16:50)
[2019-08-22] MEDS: INSULIN DETEMIR (LEVEMIR) 100 UNIT/ML SYR SQ SCH (07:43)
[2019-08-22] MEDS: INSULIN ASPART (NovoLOG) 100 UNIT/ML VIAL SQ SCH ×8 (07:43→20:13)
[2019-08-22] MEDS: DICYCLOMINE 20 MG TAB PO SCH ×3 (07:43→16:50)
[2019-08-22] MEDS: busPIRone HCl 10 MG TAB PO SCH ×2 (07:44→20:12)
[2019-08-22] MEDS: GABAPENTIN 300 MG CAP PO SCH ×3 (07:44→20:15)
[2019-08-22] MEDS: VENLAFAXINE HCL ER 150 MG CAP PO SCH (07:44)
[2019-08-22 07:49] LABS: Glucose,Whole Blood 281 mg/dL (75-99)
[2019-08-22 12:19] LABS: Glucose,Whole Blood 116 mg/dL (75-99)
--- NOTE | 2019-08-22 13:48 | P.PN ---
Subjective Progress Note Date: 08/22/19 Principal diagnosis: Major depressive disorder, without psychotic features, Anxiety disorder unspecified, Cannabis abuse, History of stimulant abuse I reviewed the medical record and interviewed the patient. He denied current problems or concerns other than waiting placement in a shelter. He denied feeling depressed or having thoughts of or suicide. Objective - Vital Signs Vital signs: Vital Signs Temp 97.6 F 08/22/19 06:22 Pulse 99 08/22/19 06:22 Resp 15 08/22/19 06:22 BP 91/53 08/22/19 06:22 Pulse Ox 99 08/19/19 18:34 - Exam He presented as a tall thin casually groomed 24-year-old male who was pleasant on approach. He made eye contact and attended to the interview. He had a bright facial expression. He was alert and oriented to person, place and time. He showed no abnormality of psychomotor activity. Speech was spontaneous with normal rate and rhythm. His affect was blunted but stable and appropriate. She denied suicidal ideation, wishes or homicidal ideation. He denied feeling hopeless, helpless or worthless. He did not express ideas reference, paranoid ideation or delusions. His thinking was concrete. Associations were coherent and logical. He denied hallucinations did not appear to be responding to internal stimuli. - Labs CBC & Chem 7: 08/11/19 07:24 08/07/19 08:48 Labs: Abnormal Lab Results - Last 24 Hours (Table) 08/21/19 08/21/19 08/21/19 Range/Units 16:17 16:38 17:18 POC Glucose (mg/dL) 53 L 102 H 180 H (75-99) mg/dL 08/21/19 08/22/19 08/22/19 Range/Units 20:09 07:36 12:13 POC Glucose (mg/dL) 159 H 281 H 116 H (75-99) mg/dL Assessment and Plan Assessment: He is moderately mentally ill and much improve from admission. We are awaiting placement in a shelter Plan: Continue inpatient psychiatric hospitalization pending placement. Continue BuSpar 30 mg by mouth twice a day, Neurontin 600 mg 3 times a day, melatonin 5 mg at bedtime, Seroquel 25 mg by mouth 3 times a day when necessary for anxiety, trazodone 200 mg at bedtime and Effexor XR 150 mg daily. Encourage participation in therapeutic groups and activities. Evaluate clinical status response to treatment daily basis.
[2019-08-22] MEDS: QUEtiapine 25 MG TAB PO PRN ×2 (13:56→20:14)
[2019-08-22 17:37] LABS: Glucose,Whole Blood 96 mg/dL (75-99)
[2019-08-22 20:12] LABS: Glucose,Whole Blood 96 mg/dL (75-99)
[2019-08-22] MEDS: MELATONIN 5 MG TABLET PO SCH (20:13)
[2019-08-22] MEDS: traZODone HCL 100 MG TAB PO SCH (20:13)
[2019-08-23] MEDS: CHOLESTYRAMINE (WITH SUGAR) 4 GM PACKET PO SCH ×2 (06:36→16:22)
[2019-08-23 07:40] LABS: Glucose,Whole Blood 215 mg/dL (75-99)
[2019-08-23] MEDS: INSULIN ASPART (NovoLOG) 100 UNIT/ML VIAL SQ SCH ×9 (07:47→20:03)
[2019-08-23] MEDS: INSULIN DETEMIR (LEVEMIR) 100 UNIT/ML SYR SQ SCH (07:47)
[2019-08-23] MEDS: VENLAFAXINE HCL ER 150 MG CAP PO SCH (07:47)
[2019-08-23] MEDS: DICYCLOMINE 20 MG TAB PO SCH ×3 (07:48→16:22)
[2019-08-23] MEDS: GABAPENTIN 300 MG CAP PO SCH ×3 (07:48→20:39)
[2019-08-23] MEDS: busPIRone HCl 10 MG TAB PO SCH ×2 (07:48→20:37)
--- NOTE | 2019-08-23 10:33 | P.PN ---
Progress Note - Text Progress Note Date: 08/23/19 Interval History: Patient was seen sitting in the lounge watching television this morning and was directable and agreeable to speak to senior copywriter in the office. Patient appeared to have improvement in his grooming and hygiene and claims that he is doing "good today". Patient was polite and appropriate during the interview. He states that the previous doctor added on Seroquel for him when necessary for anxiety and patient states that it has been helping him significantly with his anxiety however claims that he feels somewhat sedated after he takes it. He states that his mood has been gradually improving with the current medications. Patient states that he slept well last night with no overnight complaints. Patient appeared to be agreeable with continuing on with treatment and states that he has been going to groups. Patient claims that his energy has been improving. At this time patient denies any suicidal or homical ideations, intent or plan. Patient denies any auditory, visual hallucinations and denies any paranoia or delusions. Mental Status Exam: General Appearance: Patient appears to be tall and thin, stated age is alert, directable, and cooperative. Patient appears to have improving hygiene and grooming. Behavior: Patient is seated without any agitated behavior. More cooperative Speech: Patient's speech is fluent and nonpressured. Mood/Affect: Patient reports their mood is improving mildly, affect is congruent and constricted. Suicidality/Homicidality: Patient denies having any homicidal ideation intent or plan. Denies any suicidal ideations no intent or plan. Perceptions: Patient denies any visual hallucinations and denies any auditory hallucinations Though content/process: There is no evidence of any delusional thought content and thought process is linear and goal-directed. Memory and concentration: AOX3, grossly intact for the purposes of this session. Can spell "WORLD" backwards Judgment and insight: Chronically poor, improving mildly. Assessment Major depressive disorder, without psychotic features Anxiety disorder and specified Cannabis abuse History of stimulant abuse. Plan: -Patient continues to meet criteria for inpatient psychiatric admission for symptom stabilization and safety. Patient has signed adult voluntary form and medication consent and was placed in patient's chart. -Medications: Will continue with Effexor 150 mg daily today for mood/anxiety, continue with trazodone 200 mg daily at bedtime for mood/insomnia. Continue with BuSpar 30 mg twice a day for anxiety. Decreased Seroquel to 12.5 mg 3 times a day when necessary for anxiety. -Continue with dicyclomine and cholestyramine as was prescribed by gastroenterology on last admission for diarrhea/upset stomach. Continue with gabapentin 600 mg twice a day for neuropathy. -When necessary Ativan for agitation/aggression. -Internal Medicine consult to perform medical evaluation and physical. Reviewed vital signs. Continue to follow blood sugars. -NRT -this patient does not smoke -SW on board for discharge planning. Encouraged the patient to participate in milieu. Patient continues to be on the wait list for [facility] at this time. Patient cannot care for himself and cannot be discharged until he is found a spot at an [facility]. Patient received temporary guardian on 08/09/2019.
[2019-08-23 12:21] LABS: Glucose,Whole Blood 103 mg/dL (75-99)
[2019-08-23 17:21] LABS: Glucose,Whole Blood 106 mg/dL (75-99)
[2019-08-23 19:59] LABS: Glucose,Whole Blood 95 mg/dL (75-99)
[2019-08-23] MEDS: MELATONIN 5 MG TABLET PO SCH (20:37)
[2019-08-23] MEDS: traZODone HCL 100 MG TAB PO SCH (20:38)
[2019-08-23] MEDS: QUEtiapine 25 MG TAB PO PRN (20:39)
[2019-08-23] MEDS: TRIAMCINOLONE 0.1% CREAM 80 GM TUBE TOPICAL PRN (21:05)
[2019-08-24] MEDS: CHOLESTYRAMINE (WITH SUGAR) 4 GM PACKET PO SCH ×2 (06:07→16:36)
[2019-08-24 07:26] LABS: Glucose,Whole Blood 194 mg/dL (75-99)
[2019-08-24] MEDS: INSULIN ASPART (NovoLOG) 100 UNIT/ML VIAL SQ SCH ×7 (07:39→20:13)
[2019-08-24] MEDS: GABAPENTIN 300 MG CAP PO SCH ×3 (07:39→21:41)
[2019-08-24] MEDS: busPIRone HCl 10 MG TAB PO SCH ×2 (07:39→21:39)
[2019-08-24] MEDS: INSULIN DETEMIR (LEVEMIR) 100 UNIT/ML SYR SQ SCH (07:40)
[2019-08-24] MEDS: DICYCLOMINE 20 MG TAB PO SCH ×3 (07:40→16:36)
[2019-08-24] MEDS: VENLAFAXINE HCL ER 150 MG CAP PO SCH (07:41)
--- NOTE | 2019-08-24 11:21 | P.PN ---
Progress Note - Text Progress Note Date: 08/24/19 Interval History: Patient was seen sitting in on group this morning playing Scrabble and was dir ectable and agreeable to speak to copywriter in the office. Patient appeared to have improvement in his grooming and hygiene and was cooperative and appropriate with copywriter during conversation. He continues to state that he is doing "better" today and denied any overnight complaints and states that he slept throughout the night. He states that his heart rate continues to fluctuate and his blood sugars are doing well. Patient claims that his anxiety has improved dramatically on Seroquel and feels less sedated on the current dose. He states that his mood has been gradually improving with the current medications. Patient appeared to be agreeable with continuing on with treatment and states that he has been going to groups whenever he can. Patient continues to be future oriented and has questions about the admission process the [facility]. At this time patient denies any suicidal or homical ideations, intent or plan. Patient denies any auditory, visual hallucinations and denies any paranoia or delusions. Mental Status Exam: General Appearance: Patient appears to be tall and thin, stated age is alert, directable, and cooperative. Patient appears to have improving hygiene and groom ing. Behavior: Patient is seated without any agitated behavior. More cooperative and appropriate. Speech: Patient's speech is fluent and nonpressured. Mood/Affect: Patient reports their mood is improving mildly, affect is congruent Suicidality/Homicidality: Patient denies having any homicidal ideation intent or plan. Denies any suicidal ideations no intent or plan. Perceptions: Patient denies any visual hallucinations and denies any auditory hallucinations Though content/process: There is no evidence of any delusional thought content and thought process is linear and goal-directed. Memory and concentration: AOX3, grossly intact for the purposes of this session. Judgment and insight: Chronically poor/impulsive, improving mildly. Assessment: Major depressive disorder, without psychotic features Anxiety disorder and specified Cannabis abuse History of stimulant abuse. Plan: -Patient continues to meet criteria for inpatient psychiatric admission for symptom stabilization and safety. Patient has signed adult voluntary form and medication consent and was placed in patient's chart. -Medications: Will continue with Effexor 150 mg daily today for mood/anxiety, continue with trazodone 200 mg daily at bedtime for mood/insomnia. Continue with BuSpar 30 mg twice a day for anxiety. Continue with Seroquel to 12.5 mg 3 times a day when necessary for anxiety. -Continue with dicyclomine and cholestyramine as was prescribed by gastroenterology on last admission for diarrhea/upset stomach. Continue with gabapentin 600 mg twice a day for neuropathy. -When necessary Ativan for agitation/aggression. -Internal Medicine consult to perform medical evaluation and physical. Reviewed vital signs. Continue to follow blood sugars. -NRT -this patient does not smoke -SW on board for discharge planning. Encouraged the patient to participate in milieu. Patient continues to be on the wait list for [facility] at this time. Patient cannot care for himself and cannot be discharged until he is found a spot at an [facility]. Patient received temporary guardian on 08/09/2019.
[2019-08-24 11:57] LABS: Glucose,Whole Blood 61 mg/dL (75-99)
[2019-08-24 12:16] LABS: Glucose,Whole Blood 68 mg/dL (75-99)
[2019-08-24 12:26] LABS: Glucose,Whole Blood 114 mg/dL (75-99)
[2019-08-24 17:07] LABS: Glucose,Whole Blood 169 mg/dL (75-99)
[2019-08-24 20:13] LABS: Glucose,Whole Blood 93 mg/dL (75-99)
[2019-08-24] MEDS: QUEtiapine 25 MG TAB PO PRN (21:39)
[2019-08-24] MEDS: traZODone HCL 100 MG TAB PO SCH (21:39)
[2019-08-24] MEDS: MELATONIN 5 MG TABLET PO SCH (21:39)
[2019-08-24] MEDS: TRIAMCINOLONE 0.1% CREAM 80 GM TUBE TOPICAL PRN (21:43)
[2019-08-25] MEDS: CHOLESTYRAMINE (WITH SUGAR) 4 GM PACKET PO SCH ×2 (06:55→16:46)
[2019-08-25 07:42] LABS: Glucose,Whole Blood 280 mg/dL (75-99)
[2019-08-25] MEDS: INSULIN DETEMIR (LEVEMIR) 100 UNIT/ML SYR SQ SCH (07:54)
[2019-08-25] MEDS: DICYCLOMINE 20 MG TAB PO SCH ×3 (07:54→16:46)
[2019-08-25] MEDS: INSULIN ASPART (NovoLOG) 100 UNIT/ML VIAL SQ SCH ×7 (07:54→20:24)
[2019-08-25] MEDS: GABAPENTIN 300 MG CAP PO SCH ×3 (07:55→20:55)
[2019-08-25] MEDS: VENLAFAXINE HCL ER 150 MG CAP PO SCH (07:55)
[2019-08-25] MEDS: busPIRone HCl 10 MG TAB PO SCH ×2 (07:55→20:56)
--- NOTE | 2019-08-25 10:38 | P.PN ---
Progress Note - Text Progress Note Date: 08/25/19 Interval History: Patient was seen sitting at the side of his bed this morning and was directable and agreeable to speak to publicity writer in the office. Patient appeared to have an improved affect and was cooperative and appropriate during the conversation. He continues to not endorse any overnight complaints and states that he slept well throughout the night. He states that his heart rate continues to fluctuate and his blood sugars are doing well at this time and also stated that his diarrhea symptoms have improved. Patient claims that he has been taking Seroquel intermittently and took his last dose last night for anxiety and claims in the afternoon he usually needs to take another dose. He states that his mood has been gradually improving with the current medications. He has been going to groups whenever he can and trying to participate. Patient continues to be future oriented and continues to be on board with disposition to [facility] when available. At this time patient denies any suicidal or homical ideations, intent or plan. Patient denies any auditory, visual hallucinations and denies any paranoia or delusions. Mental Status Exam: General Appearance: Patient appears to be tall and thin, stated age is alert, directable, and cooperative. Patient appears to have improving hygiene and grooming. Behavior: Patient is seated without any agitated behavior. More cooperative and appropriate. Speech: Patient's speech is fluent and nonpressured. Mood/Affect: Patient reports their mood is improving mildly, affect is congruent and improving. Suicidality/Homicidality: Patient denies having any homicidal ideation intent or plan. Denies any suicidal ideations no intent or plan. Perceptions: Patient denies any visual hallucinations and denies any auditory hallucinations Though content/process: There is no evidence of any delusional thought content and thought process is linear and goal-directed. Memory and concentration: AOX3, grossly intact for the purposes of this session. Judgment and insight: Chronically poor/impulsive, improving mildly. Assessment: Major depressive disorder, without psychotic features Anxiety disorder and specified Cannabis abuse History of stimulant abuse. Plan: -Patient continues to meet criteria for inpatient psychiatric admission for symptom stabilization and safety. Patient has signed adult voluntary form and medication consent and was placed in patient's chart. -Medications: Will continue with Effexor 150 mg daily today for mood/anxiety, continue with trazodone 200 mg daily at bedtime for mood/insomnia. Continue with BuSpar 30 mg twice a day for anxiety. Continue with Seroquel to 12.5 mg 3 times a day when necessary for anxiety. -Continue with dicyclomine and cholestyramine as was prescribed by gastroenterology on last admission for diarrhea/upset stomach. Continue with gabapentin 600 mg twice a day for neuropathy. -When necessary Ativan for agitation/aggression. -Internal Medicine consult to perform medical evaluation and physical. Reviewed vital signs. Continue to follow blood sugars. -NRT -this patient does not smoke -SW on board for discharge planning. Encouraged the patient to participate in milieu. Patient continues to be on the wait list for [facility] at this time. Patient cannot care for himself and cannot be discharged until he is found a spot at an [facility]. Patient received temporary guardian on 08/09/2019.
[2019-08-25 12:15] LABS: Glucose,Whole Blood 144 mg/dL (75-99)
[2019-08-25] MEDS: QUEtiapine 25 MG TAB PO PRN ×2 (12:19→20:56)
[2019-08-25 17:10] LABS: Glucose,Whole Blood 105 mg/dL (75-99)
[2019-08-25 20:13] LABS: Glucose,Whole Blood 83 mg/dL (75-99)
[2019-08-25] MEDS: traZODone HCL 100 MG TAB PO SCH (20:56)
[2019-08-25] MEDS: MELATONIN 5 MG TABLET PO SCH (20:56)
[2019-08-26] MEDS: CHOLESTYRAMINE (WITH SUGAR) 4 GM PACKET PO SCH ×2 (06:29→16:20)
[2019-08-26 07:18] LABS: Glucose,Whole Blood 189 mg/dL (75-99)
[2019-08-26] MEDS: INSULIN DETEMIR (LEVEMIR) 100 UNIT/ML SYR SQ SCH (07:38)
[2019-08-26] MEDS: DICYCLOMINE 20 MG TAB PO SCH ×3 (07:39→16:20)
[2019-08-26] MEDS: busPIRone HCl 10 MG TAB PO SCH ×2 (07:39→21:38)
[2019-08-26] MEDS: INSULIN ASPART (NovoLOG) 100 UNIT/ML VIAL SQ SCH ×7 (07:39→20:15)
[2019-08-26] MEDS: GABAPENTIN 300 MG CAP PO SCH ×3 (07:40→21:38)
[2019-08-26] MEDS: VENLAFAXINE HCL ER 150 MG CAP PO SCH (07:40)
--- NOTE | 2019-08-26 10:10 | P.PN ---
Progress Note - Text Progress Note Date: 08/26/19 Interval History: Patient was seen laying down in his bed this morning and was directable and ag reeable to speak to jingle writer in his room. Patient appeared to be just awaking from his sleep and states that he attended breakfast this morning and took his medications. He continues to have fair hygiene and claims that he's been taking showers. He stated that he awoke intermittently throughout the night and did not get the best sleep last night. Patient claims that he has been taking Seroquel intermittently and states that it has greatly improved his anxiety and states that "I don't feel anything anymore". He states that his mood has been gradually improving with the current medications. He has been going to groups whenever he can and trying to participate. Patient continues to be future oriented and continues to ask questions about his disposition to [facility] when available. At this time patient denies any suicidal or homical ideations, intent or plan. Patient denies any auditory, visual hallucinations and denies any paranoia or delusions. Mental Status Exam: General Appearance: Patient appears to be tall and thin, stated age is alert, directable, and cooperative. Patient appears to have improving hygiene and grooming. Behavior: Patient is seated without any agitated behavior. Cooperative and appropriate. Speech: Patient's speech is fluent and nonpressured. Mood/Affect: Patient reports their mood is improving mildly, affect is congruent and improving. Suicidality/Homicidality: Patient denies having any homicidal ideation intent or plan. Denies any suicidal ideations no intent or plan. Perceptions: Patient denies any visual hallucinations and denies any auditory hallucinations Though content/process: There is no evidence of any delusional thought content and thought process is linear and goal-directed. Memory and concentration: AOX3, grossly intact for the purposes of this session. Judgment and insight: Chronically poor/impulsive, improving mildly. Assessment: Major depressive disorder, without psychotic features Anxiety disorder and specified Cannabis abuse History of stimulant abuse. Plan: -Patient continues to meet criteria for inpatient psychiatric admission for symptom stabilization and safety. Patient has signed adult voluntary form and medication consent and was placed in patient's chart. -Medications: Will continue with Effexor 150 mg daily today for mood/anxiety, continue with trazodone 200 mg daily at bedtime for mood/insomnia. Continue with BuSpar 30 mg twice a day for anxiety. Continue with Seroquel to 12.5 mg 3 times a day when necessary for anxiety. -Continue with dicyclomine and cholestyramine as [facility] for diarrhea/upset stomach. Continue with gabapentin 600 mg twice a day for neuropathy. -When necessary Ativan for agitation/aggression. -Internal Medicine consult to perform medical evaluation and physical. Reviewed vital signs. Continue to follow blood sugars. -NRT -this patient does not smoke -SW on board for discharge planning. Encouraged the patient to participate in milieu. Patient continues to be on the wait list for [facility] at this time. Patient cannot care for himself and cannot be discharged until he is found a spot at an [facility]. Patient received temporary guardian on 08/09/2019.
[2019-08-26 10:54] VITALS: BMI 20.2
[2019-08-26 12:01] LABS: Glucose,Whole Blood 104 mg/dL (75-99)
[2019-08-26] MEDS: QUEtiapine 25 MG TAB PO PRN ×2 (13:48→21:39)
[2019-08-26 17:16] LABS: Glucose,Whole Blood 169 mg/dL (75-99)
[2019-08-26 20:03] LABS: Glucose,Whole Blood 83 mg/dL (75-99)
[2019-08-26] MEDS: MELATONIN 5 MG TABLET PO SCH (21:38)
[2019-08-26] MEDS: traZODone HCL 100 MG TAB PO SCH (21:38)
[2019-08-27] MEDS: CHOLESTYRAMINE (WITH SUGAR) 4 GM PACKET PO SCH ×2 (06:29→16:21)
[2019-08-27 07:31] LABS: Glucose,Whole Blood 207 mg/dL (75-99)
[2019-08-27] MEDS: INSULIN DETEMIR (LEVEMIR) 100 UNIT/ML SYR SQ SCH (07:33)
[2019-08-27] MEDS: INSULIN ASPART (NovoLOG) 100 UNIT/ML VIAL SQ SCH ×7 (07:34→20:16)
[2019-08-27] MEDS: DICYCLOMINE 20 MG TAB PO SCH ×3 (07:36→16:21)
[2019-08-27] MEDS: GABAPENTIN 300 MG CAP PO SCH ×3 (07:39→20:55)
[2019-08-27] MEDS: busPIRone HCl 10 MG TAB PO SCH ×2 (07:39→20:53)
[2019-08-27] MEDS: VENLAFAXINE HCL ER 150 MG CAP PO SCH (07:39)
[2019-08-27] MEDS: QUEtiapine 25 MG TAB PO PRN ×2 (07:40→20:50)
--- NOTE | 2019-08-27 09:51 | P.PN ---
Progress Note - Text Progress Note Date: 08/27/19 Interval History: Patient was seen playing cards during group in the [facility] this morning and was directable and agreeable to speak to clinical writer in his room. Patient appeared to have a more constricted affect this morning and denied any overnight issues. He states that he slept well throughout the night. He continues to have fair hygiene and claims that he's been taking showers. He states that he did not speak with his mother yesterday however will be calling her today. He claims that he has been going to some groups intermittently. He states that he took Seroquel this morning for his anxiety and claims that it has been helping him. Patient continues to ask about his [facility] and if he has placement at this time. At this time patient denies any suicidal or homical ideations, intent or plan. Patient denies any auditory, visual hallucinations and denies any paranoia or delusions. Mental Status Exam: General Appearance: Patient appears to be tall and thin, stated age is alert, directable, and cooperative. Patient appears to have improving hygiene and grooming. Behavior: Patient is seated without any agitated behavior. Cooperative and appropriate. Speech: Patient's speech is fluent and nonpressured. Mood/Affect: Patient reports their mood is improving mildly, affect is congruent and constricted. Suicidality/Homicidality: Patient denies having any homicidal ideation intent or plan. Denies any suicidal ideations no intent or plan. Perceptions: Patient denies any visual hallucinations and denies any auditory hallucinations Though content/process: There is no evidence of any delusional thought content and thought process is linear and goal-directed. [place]. Memory and concentration: AOX3, grossly intact for the purposes of this session. Judgment and insight: Chronically poor/impulsive, improving mildly. Assessment: Major depressive disorder, without psychotic features Anxiety disorder and specified Cannabis abuse History of stimulant abuse. Plan: -Patient continues to meet criteria for inpatient psychiatric admission for symptom stabilization and safety. Patient has signed adult voluntary form and medication consent and was placed in patient's chart. -Medications: Will continue with Effexor 150 mg daily today for mood/anxiety, continue with trazodone 200 mg daily at bedtime for mood/insomnia. Continue with BuSpar 30 mg twice a day for anxiety. Continue with Seroquel to 12.5 mg 3 times a day when necessary for anxiety. -Continue with dicyclomine and cholestyramine as was prescribed by gastroenterology on last admission for diarrhea/upset stomach. Continue with gabapentin 600 mg twice a day for neuropathy. -When necessary Ativan for agitation/aggression. -Internal Medicine consult to perform medical evaluation and physical. Reviewed vital signs. Continue to follow blood sugars. -NRT -this patient does not smoke -SW on board for discharge planning. Encouraged the patient to participate in milieu. Patient continues to be on the wait list for [facility] at this time. Patient cannot care for himself and cannot be discharged until he is found a spot at an [facility]. Patient received temporary guardian on 08/09/2019.
[2019-08-27 12:23] LABS: Glucose,Whole Blood 92 mg/dL (75-99)
[2019-08-27 17:22] LABS: Glucose,Whole Blood 121 mg/dL (75-99)
[2019-08-27 20:15] LABS: Glucose,Whole Blood 96 mg/dL (75-99)
[2019-08-27] MEDS: traZODone HCL 100 MG TAB PO SCH (20:53)
[2019-08-27] MEDS: MELATONIN 5 MG TABLET PO SCH (20:53)
[2019-08-28] MEDS: CHOLESTYRAMINE (WITH SUGAR) 4 GM PACKET PO SCH ×2 (05:54→16:25)
[2019-08-28 07:13] LABS: Glucose,Whole Blood 126 mg/dL (75-99)
[2019-08-28] MEDS: INSULIN DETEMIR (LEVEMIR) 100 UNIT/ML SYR SQ SCH (07:43)
[2019-08-28] MEDS: INSULIN ASPART (NovoLOG) 100 UNIT/ML VIAL SQ SCH ×7 (07:45→20:12)
[2019-08-28] MEDS: VENLAFAXINE HCL ER 150 MG CAP PO SCH (07:48)
[2019-08-28] MEDS: DICYCLOMINE 20 MG TAB PO SCH ×3 (07:48→17:48)
[2019-08-28] MEDS: GABAPENTIN 300 MG CAP PO SCH ×3 (07:48→20:41)
[2019-08-28] MEDS: busPIRone HCl 10 MG TAB PO SCH ×2 (07:48→20:39)
--- NOTE | 2019-08-28 11:51 | P.PN ---
Progress Note - Text Progress Note Date: 08/28/19 Interval history: Patient is seen in cross coverage today. He reports that sleep and appetite are doing well. He does not voice any adverse psychotropic medication side effects. He does describe feeling better. He relates that he is waiting for placement at the [facility]. He does feel like he is ready for discharge when the placement happens. Mental status exam: He is alert and cooperative with the interview. His speech is fluent, not rapid or pressured. His mood overall seems to be improved. He relates that his thoughts of suicide are less frequent and he feels safe on the unit. He does not voice any thoughts of harm to others. No agitation is noted. He has not verbalize any hallucinations or carly delusions. Plan: Patient will be maintained on current psychotropic medication regimen. Continue to monitor for any medication side effects and monitor regarding any suicidal ideations. Continue to monitor his ongoing response to treatment.
[2019-08-28 12:30] LABS: Glucose,Whole Blood 142 mg/dL (75-99)
[2019-08-28 17:27] LABS: Glucose,Whole Blood 129 mg/dL (75-99)
[2019-08-28] MEDS: TRIAMCINOLONE 0.1% CREAM 80 GM TUBE TOPICAL PRN (18:29)
[2019-08-28 20:01] LABS: Glucose,Whole Blood 72 mg/dL (75-99)
[2019-08-28] MEDS: MELATONIN 5 MG TABLET PO SCH (20:39)
[2019-08-28] MEDS: traZODone HCL 100 MG TAB PO SCH (20:39)
[2019-08-28] MEDS: QUEtiapine 25 MG TAB PO PRN (20:42)
[2019-08-29 02:15] LABS: Glucose,Whole Blood 156 mg/dL (75-99)
[2019-08-29] MEDS: CHOLESTYRAMINE (WITH SUGAR) 4 GM PACKET PO SCH ×2 (05:39→16:30)
[2019-08-29 07:49] LABS: Glucose,Whole Blood 189 mg/dL (75-99)
[2019-08-29] MEDS: GABAPENTIN 300 MG CAP PO SCH ×3 (07:53→20:44)
[2019-08-29] MEDS: INSULIN DETEMIR (LEVEMIR) 100 UNIT/ML SYR SQ SCH (07:53)
[2019-08-29] MEDS: VENLAFAXINE HCL ER 150 MG CAP PO SCH (07:53)
[2019-08-29] MEDS: DICYCLOMINE 20 MG TAB PO SCH ×3 (07:53→16:30)
[2019-08-29] MEDS: busPIRone HCl 10 MG TAB PO SCH ×2 (07:53→20:44)
[2019-08-29] MEDS: INSULIN ASPART (NovoLOG) 100 UNIT/ML VIAL SQ SCH ×7 (07:54→19:48)
[2019-08-29] MEDS: QUEtiapine 25 MG TAB PO PRN ×2 (11:44→20:45)
[2019-08-29 12:19] LABS: Glucose,Whole Blood 104 mg/dL (75-99)
--- NOTE | 2019-08-29 13:53 | P.PN ---
Progress Note - Text Progress Note Date: 08/29/19 Interval history: Patient is seen in cross coverage again today. He was found in his room, he does decline to meet with me today. He relays that is doing okay. Mental status exam: He is found in his room, lying in bed. He declines to be with me today. He relays that he is doing okay. Plan: Patient will be maintained on current psychotropic medication regimen. Continue to monitor for any medication side effects and monitor his ongoing response to treatment.
[2019-08-29 17:22] LABS: Glucose,Whole Blood 179 mg/dL (75-99)
[2019-08-29 19:49] LABS: Glucose,Whole Blood 94 mg/dL (75-99)
[2019-08-29] MEDS: MELATONIN 5 MG TABLET PO SCH (20:44)
[2019-08-29] MEDS: traZODone HCL 100 MG TAB PO SCH (20:45)
[2019-08-30] MEDS: CHOLESTYRAMINE (WITH SUGAR) 4 GM PACKET PO SCH ×2 (06:24→16:26)
[2019-08-30 06:44] VITALS: RESP 16
[2019-08-30 07:45] LABS: Glucose,Whole Blood 202 mg/dL (75-99)
[2019-08-30] MEDS: INSULIN DETEMIR (LEVEMIR) 100 UNIT/ML SYR SQ SCH (07:55)
[2019-08-30] MEDS: INSULIN ASPART (NovoLOG) 100 UNIT/ML VIAL SQ SCH ×7 (07:56→20:19)
[2019-08-30] MEDS: DICYCLOMINE 20 MG TAB PO SCH ×3 (07:56→16:27)
[2019-08-30] MEDS: VENLAFAXINE HCL ER 150 MG CAP PO SCH (07:57)
[2019-08-30] MEDS: busPIRone HCl 10 MG TAB PO SCH ×2 (07:57→21:34)
[2019-08-30] MEDS: GABAPENTIN 300 MG CAP PO SCH ×3 (07:57→21:35)
--- NOTE | 2019-08-30 11:28 | P.PN ---
Progress Note - Text Progress Note Date: 08/30/19 Interval History: Patient was seen walking the hallways this morning and was directable and agre eable to speak to typewriters functional tester in the office. Patient appeared to have a constricted affect this morning however states that he is doing "okay". Patient states that he slept well overnight and denied any problems throughout the weekend. He states that his blood sugars have been fairly stable on the current medications and states that he wants to continue on the same dose of medication at this time. He continues to have fair hygiene and claims that he's been taking showers and grooming himself. He claims that he has been going to some groups intermittently however states that he is not learning anything from groups anymore. He states that he has been taking Seroquel approximately 1 or 2 times during the day for his anxiety and claims that it has been helping him. Patient continues to ask about his AFC and if he has placement at this time. At this time patient denies any suicidal or homical ideations, intent or plan. Patient denies any auditory, visual hallucinations and denies any paranoia or delusions. Mental Status Exam: General Appearance: Patient appears to be tall and thin, stated age is alert, directable, and cooperative. Patient appears to have improving hygiene and grooming. Behavior: Patient is seated without any agitated behavior. Cooperative and appropriate. Speech: Patient's speech is fluent and nonpressured. Mood/Affect: Patient reports their mood is improving mildly, affect is congruent and constricted. Suicidality/Homicidality: Patient denies having any homicidal ideation intent or plan. Denies any suicidal ideations no intent or plan. Perceptions: Patient denies any visual hallucinations and denies any auditory hallucinations Though content/process: There is no evidence of any delusional thought content and thought process is linear and goal-directed. [place]. Memory and concentration: AOX3, grossly intact for the purposes of this session. Judgment and insight: Chronically poor/impulsive, improving mildly. Assessment: Major depressive disorder, without psychotic features Anxiety disorder and specified Cannabis abuse History of stimulant abuse. Plan: -Patient continues to meet criteria for inpatient psychiatric admission for symptom stabilization and safety. Patient has signed adult voluntary form and medication consent and was placed in patient's chart. -Medications: Will continue with Effexor 150 mg daily today for mood/anxiety, continue with trazodone 200 mg daily at bedtime for mood/insomnia. Continue with BuSpar 30 mg twice a day for anxiety. Continue with Seroquel to 12.5 mg 3 times a day when necessary for anxiety. -Continue with dicyclomine and cholestyramine as was prescribed by gastroenterology on last admission for diarrhea/upset stomach. Continue with gabapentin 600 mg twice a day for neuropathy. -When necessary Ativan for agitation/aggression. -Internal Medicine consult to perform medical evaluation and physical. Reviewed vital signs. Continue to follow blood sugars. -NRT -this patient does not smoke -SW on board for discharge planning. Encouraged the patient to participate in milieu. Patient continues to be on the wait list for [facility] at this time. Patient cannot care for himself and cannot be discharged until he is found a spot at an [facility]. Patient received temporary guardian on 08/09/2019.
[2019-08-30 12:40] LABS: Glucose,Whole Blood 136 mg/dL (75-99)
[2019-08-30 17:38] LABS: Glucose,Whole Blood 192 mg/dL (75-99)
[2019-08-30 20:11] LABS: Glucose,Whole Blood 154 mg/dL (75-99)
[2019-08-30] MEDS: MELATONIN 5 MG TABLET PO SCH (21:34)
[2019-08-30] MEDS: traZODone HCL 100 MG TAB PO SCH (21:35)
[2019-08-30] MEDS: QUEtiapine 25 MG TAB PO PRN (21:36)
[2019-08-31] MEDS: CHOLESTYRAMINE (WITH SUGAR) 4 GM PACKET PO SCH ×2 (06:28→15:52)
[2019-08-31 07:58] LABS: Glucose,Whole Blood 177 mg/dL (75-99)
[2019-08-31] MEDS: INSULIN ASPART (NovoLOG) 100 UNIT/ML VIAL SQ SCH ×7 (08:01→20:45)
[2019-08-31] MEDS: INSULIN DETEMIR (LEVEMIR) 100 UNIT/ML SYR SQ SCH (08:02)
[2019-08-31] MEDS: DICYCLOMINE 20 MG TAB PO SCH ×3 (08:02→17:35)
[2019-08-31] MEDS: VENLAFAXINE HCL ER 150 MG CAP PO SCH (08:11)
[2019-08-31] MEDS: GABAPENTIN 300 MG CAP PO SCH ×3 (08:11→20:45)
[2019-08-31] MEDS: busPIRone HCl 10 MG TAB PO SCH ×2 (08:11→20:44)
--- NOTE | 2019-08-31 09:43 | P.PN ---
Progress Note - Text Progress Note Date: 08/31/19 Interval History: Patient was seen sitting in on group this morning and was directable and agree able to speak to personal lines underwriter in the office. Patient appeared to have improved hygiene and grooming today. He continues to have a constricted affect this morning and denied any overnight complaints. He stated that he slept well overnight on his current medications and had breakfast this morning. He states that his blood sugars have been fairly well controlled at this time and his vital signs were reviewed and were within normal limits. He states that his mood is "okay" and continues to remain positive about his future. He claims that he has been going to some groups intermittently. He claims that his anxiety has been improving. At this time patient denies any suicidal or homical ideations, intent or plan. Patient denies any auditory, visual hallucinations and denies any paranoia or delusions. Mental Status Exam: General Appearance: Patient appears to be tall and thin, stated age is alert, directable, and cooperative. Patient appears to have improving hygiene and grooming. Behavior: Patient is seated without any agitated behavior. Cooperative and appropriate. Speech: Patient's speech is fluent and nonpressured. Mood/Affect: Patient reports their mood is "okay", affect is congruent and constricted. Suicidality/Homicidality: Patient denies having any homicidal ideation intent or plan. Denies any suicidal ideations no intent or plan. Perceptions: Patient denies any visual hallucinations and denies any auditory hallucinations Though content/process: There is no evidence of any delusional thought content and thought process is linear and goal-directed. [place]. Memory and concentration: AOX3, grossly intact for the purposes of this session. Judgment and insight: Chronically poor/impulsive, improving mildly. Assessment: Major depressive disorder, without psychotic features Anxiety disorder and specified Cannabis abuse History of stimulant abuse. Plan: -Patient continues to meet criteria for inpatient psychiatric admission for symptom stabilization and safety. Patient has signed adult voluntary form and medication consent and was placed in patient's chart. -Medications: Will continue with Effexor 150 mg daily today for mood/anxiety, continue with trazodone 200 mg daily at bedtime for mood/insomnia. Continue with BuSpar 30 mg twice a day for anxiety. Continue with Seroquel to 12.5 mg 3 times a day when necessary for anxiety. -Continue with dicyclomine and cholestyramine as was prescribed by gastroenterology on last admission for diarrhea/upset stomach. Continue with gabapentin 600 mg twice a day for neuropathy. -When necessary Ativan for agitation/aggression. -Internal Medicine consult to perform medical evaluation and physical. Reviewed vital signs. Continue to follow blood sugars. -NRT -this patient does not smoke -SW on board for discharge planning. Encouraged the patient to participate in milieu. Patient continues to be on the wait list for [facility] at this time. Patient cannot care for himself and cannot be discharged until he is found a spot at an [facility]. Patient received temporary guardian on 08/09/2019.
[2019-08-31 12:40] LABS: Glucose,Whole Blood 78 mg/dL (75-99)
[2019-08-31 17:36] LABS: Glucose,Whole Blood 129 mg/dL (75-99)
[2019-08-31 20:06] LABS: Glucose,Whole Blood 113 mg/dL (75-99)
[2019-08-31] MEDS: MELATONIN 5 MG TABLET PO SCH (20:45)
[2019-08-31] MEDS: traZODone HCL 100 MG TAB PO SCH (20:45)
[2019-08-31] MEDS: QUEtiapine 25 MG TAB PO PRN (20:46)
[2019-09-01] MEDS: CHOLESTYRAMINE (WITH SUGAR) 4 GM PACKET PO SCH ×2 (06:10→16:49)
[2019-09-01 07:03] VITALS: BP 90/55; PULSE 84; TEMP 97.4
[2019-09-01 07:48] LABS: Glucose,Whole Blood 197 mg/dL (75-99)
[2019-09-01] MEDS: INSULIN DETEMIR (LEVEMIR) 100 UNIT/ML SYR SQ SCH (07:51)
[2019-09-01] MEDS: DICYCLOMINE 20 MG TAB PO SCH ×3 (07:52→16:49)
[2019-09-01] MEDS: INSULIN ASPART (NovoLOG) 100 UNIT/ML VIAL SQ SCH ×6 (07:52→16:49)
[2019-09-01] MEDS: busPIRone HCl 10 MG TAB PO SCH (07:54)
[2019-09-01] MEDS: GABAPENTIN 300 MG CAP PO SCH ×2 (07:54→16:48)
[2019-09-01] MEDS: VENLAFAXINE HCL ER 150 MG CAP PO SCH (07:54)
--- NOTE | 2019-09-01 10:32 | P.DS ---
Providers Date of admission: 08/06/19 06:20 Expected date of discharge: 09/01/19 Attending physician: Fer Merlos MD Consults: 08/06/19 06:30 Consult Physician Routine Consulting Provider: Brown Valenzuela Consult Reason/Comments: medical H and P Do you want consulting provider notified?: Yes, Notify in am Primary care physician: Brown Valenzuela - Discharge Diagnosis(es) (1) Major depressive disorder without psychotic features Current Visit: Yes Status: Acute Priority: High (2) Anxiety disorder, unspecified Current Visit: Yes Status: Acute Priority: Medium (3) Cannabis abuse Current Visit: Yes Status: Acute Priority: Medium Hospital Course: Admission HPI: Patient is a 23-year-old male with a history of depression and type 1 diabetes currently single with no kids living with his friend. Patient presented to the hospital last night after an overdose/suicide attempt at home. Patient has a significant history of diabetes mellitus and major depressive disorder and was recently discharged from the mental health unit on 08/04/2019 on trazodone 300 mg daily at bedtime melatonin Effexor XR 150 mg daily and BuSpar 20 mg twice a day. Patient states that after he left the hospital he states that he was feeling fine but claims that he was "overwhelmed with everything". He states that he has "too much to do" and feels that his life is not in order. He claims that he couldn't concentrate on anything and was crying all day. He states that he also got into a fight with his sister and also states that he used some marijuana at his friend's house. Patient claims that he began feeling suicidal and took 10 trazodone pills and also 20 units of insulin in a suicide attempt. He states that after he took it he was confused and only remembers getting into his friend's car and being dropped off at the hospital. He states that his mood is "depressed" and continues to endorse suicidal ideations however has no intent or plan in the hospital. He states that his sleep is fair. Patient denies any homicidal ideations intent or plan. At this time patient denies any auditory or visual hallucinations. Patient denies any flight of ideas racing thoughts and increased in goal directed behavior. Patient admits to using marijuana 1-2 times a week and states that he only takes "a couple of hits". He denies any other recreational drug use and denies cigarette use. Hospital course: Upon admission to the unit patient was initially depressed and suicidal. Patient was however directable and agreeable to commence treatment. Patient got along well with other patients on the unit and followed unit protocol. Patient received a temporary guardian on 08/09/2019. Patient was compliant with the medications and denied any side effects throughout hospital course. Patient was started on Effexor and titrated up to a dose of 150 mg daily for mood/anxiety, trazodone 200 mg nightly for mood/insomnia, BuSpar 30 mg twice a day for anxiety and also started on Seroquel 12.5 mg 3 times a day when necessary for anxiety. Patient spoke of his stressors and engaged in therapy both group and individual. Patient claims that he has been working on his coping skills and impulse control. Patient was also seen by medical team for history and physical exam. Patient was restarted on cholestyramine and dicyclomine as prescribed previously by gastroenterology for diarrhea/upset stomach. Patient was also restarted on gabapentin 600 mg twice a day for neuropathy related to his diabetes. Throughout the course of the hospitalization patient gradually improved with regards to mood, anxiety, suicidal ideations, sleep and became future oriented with improved insight and judgment. On the day of discharge patient denied any suicidal or homicidal ideations intent or plan denied any auditory or visual hallucinations. Patient endorsed wanting to live for his future and his health. The patient denied any access to guns or weapons. Patient denied any paranoia and did not endorse any delusions. Patient does have a significant history of substance abuse and was counseled on abstaining from all substances including alcohol and marijuana. Patient was also counseled on the medications and need for regular compliance and was encouraged to follow-up with their outpatient appointment for mental health and also for primary care. Patient was [facility] a spot at an [facility] in the community and will be discharged there today. Mental status exam: General Appearance: Patient appears to be stated age is tall, thin, alert, directable, and cooperative. Patient is in no acute distress and has fair hygiene and grooming Behavior: Patient is calmly seated without any agitated behavior. Speech: Patient's speech is fluent and nonpressured. Mood/Affect: Patient reports their mood is "much better", affect is congruent and euthymic. Suicidality/Homicidality: Patient denies having any suicidal or homicidal ideation intent or plan. Perceptions: Patient denies any auditory or visual hallucinations. Though content/process: There is no evidence of any delusional thought content and thought process is linear and goal-directed. Future oriented. Memory and concentration: AOX3, grossly intact for the purposes of this session. Can spell "WORLD" backwards correctly. Judgment and insight: improved with guarded prognosis Impression: Ager depressive disorder, without psychotic features Anxiety disorder unspecified Cannabis abuse Plan: -Continue with discharge today as patient has improved and stabilized psychiatrically and is not currently an imminent threat to himself and/or others. Patient does have a chronic history of suicidality and depression and a lso impulse control issues, history of multiple suicide attempts which put him at a chronically elevated risk for self-harm. -Continue medications: BuSpar 30 mg twice a day for anxiety, trazodone 200 mg nightly for mood/insomnia, Effexor 150 mg daily for mood/anxiety. Will continue with Seroquel 12.5 mg twice a day when necessary for anxiety. -Patient was counseled on the need for medication compliance and appropriate follow-up at mental health and also primary care for medical issues. Patient verbalized understanding and agreed. -Social work to arrange for and conduct family meeting to ensure safety upon discharge and answer any questions/concerns and inform patient's guardian of his discharge today. Social work also to arrange for patients follow up appointments with [facility] for psychiatric care along with follow up with primary care provider. -Patient counseled on abstaining from recreational drugs and marijuana and alcohol. Was informed/educated on the adverse effects on their physical and mental health. Patient verbally agreed and understood. -Patient was instructed to return to the hospital or seek immediate medical care if their psychiatric or medical symptoms do worsen or reoccur. -Patient was found a spot at an [facility] in the community and will be discharged there today. Allergies Allergy/AdvReac Type Severity Reaction Status Date / Time No Known Allergies Allergy Verified 08/05/19 21:48 Laboratory Results WBC 13.7 k/uL (3.8-10.6) H 08/11/19 07:24 RBC 4.98 m/uL (4.30-5.90) 08/11/19 07:24 Hgb 15.0 gm/dL (13.0-17.5) 08/11/19 07:24 Hct 46.6 % (39.0-53.0) 08/11/19 07:24 MCV 93.6 fL (80.0-100.0) 08/11/19 07:24 MCH 30.2 pg (25.0-35.0) 08/11/19 07:24 MCHC 32.3 g/dL (31.0-37.0) 08/11/19 07:24 RDW 12.8 % (11.5-15.5) 08/11/19 07:24 Plt Count 393 k/uL (150-450) 08/11/19 07:24 Neutrophils % 41 % 08/11/19 07:24 Neutrophils % (Manual) 48 % 08/07/19 08:48 Band Neutrophils % 1 % 08/05/19 22:30 Lymphocytes % 20 % 08/11/19 07:24 Lymphocytes % (Manual) 21 % 08/07/19 08:48 Monocytes % 6 % 08/11/19 07:24 Monocytes % (Manual) 6 % 08/07/19 08:48 Eosinophils % 30 % 08/11/19 07:24 Eosinophils % (Manual) 25 % 08/07/19 08:48 Basophils % 1 % 08/11/19 07:24 Basophils % (Manual) 1 % 08/05/19 22:30 Neutrophils # 5.6 k/uL (1.3-7.7) 08/11/19 07:24 Neutrophils # (Manual) 6.72 k/uL (1.3-7.7) 08/07/19 08:48 Lymphocytes # 2.7 k/uL (1.0-4.8) 08/11/19 07:24 Lymphocytes # (Manual) 2.94 k/uL (1.0-4.8) 08/07/19 08:48 Monocytes # 0.9 k/uL (0-1.0) 08/11/19 07:24 Monocytes # (Manual) 0.84 k/uL (0-1.0) 08/07/19 08:48 Eosinophils # 4.2 k/uL (0-0.7) H 08/11/19 07:24 Eosinophils # (Manual) 3.50 k/uL (0-0.7) H 08/07/19 08:48 Basophils # 0.1 k/uL (0-0.2) 08/11/19 07:24 Basophils # (Manual) 0.19 k/uL (0-0.2) 08/05/19 22:30 Nucleated RBCs 0 /100 WBC (0-0) 08/07/19 08:48 Manual Slide Review Performed 08/11/19 07:24 RBC Morphology Normal 08/07/19 08:48 Sodium 136 mmol/L (137-145) L 08/07/19 08:48 Potassium 4.4 mmol/L (3.5-5.1) 08/07/19 08:48 Chloride 101 mmol/L (98-107) 08/07/19 08:48 Carbon Dioxide 28 mmol/L (22-30) 08/07/19 08:48 Anion Gap 7 mmol/L 08/07/19 08:48 BUN 17 mg/dL (9-20) 08/07/19 08:48 Creatinine 0.63 mg/dL (0.66-1.25) L 08/07/19 08:48 Est GFR (CKD-EPI)AfAm >90 (>60 ml/min/1.73 sqM) 08/07/19 08:48 Est GFR (CKD-EPI)NonAf >90 (>60 ml/min/1.73 sqM) 08/07/19 08:48 Glucose 229 mg/dL (74-99) H 08/07/19 08:48 POC Glucose (mg/dL) 197 mg/dL (75-99) H 09/01/19 07:47 POC Glu Auxiliary Powerplant Operator ID Chasity Franco 09/01/19 07:47 Calcium 8.6 mg/dL (8.4-10.2) 08/07/19 08:48 Magnesium 2.3 mg/dL (1.6-2.3) 08/05/19 22:30 Total Bilirubin 0.5 mg/dL (0.2-1.3) 08/05/19 22:30 AST 26 U/L (17-59) 08/05/19 22:30 ALT 44 U/L (4-49) 08/05/19 22:30 Alkaline Phosphatase 101 U/L (38-126) 08/05/19 22:30 Total Protein 7.9 g/dL (6.3-8.2) 08/05/19 22:30 Albumin 4.7 g/dL (3.5-5.0) 08/05/19 22:30 Salicylates <1.0 mg/dL 08/05/19 22:30 Urine Opiates Screen Not Detected (NotDetected) 08/05/19 22:30 Ur Oxycodone Screen Not Detected (NotDetected) 08/05/19 22:30 Urine Methadone Screen Not Detected (NotDetected) 08/05/19 22:30 Ur Propoxyphene Screen Not Detected (NotDetected) 08/05/19 22:30 Acetaminophen <10.0 ug/mL 08/05/19 22:30 Ur Barbiturates Screen Not Detected (NotDetected) 08/05/19 22:30 U Tricyclic Antidepress Not Detected (NotDetected) 08/05/19 22:30 Ur Phencyclidine Scrn Not Detected (NotDetected) 08/05/19 22:30 Ur Amphetamines Screen Not Detected (NotDetected) 08/05/19 22:30 U Methamphetamines Scrn Not Detected (NotDetected) 08/05/19 22:30 U Benzodiazepines Scrn Not Detected (NotDetected) 08/05/19 22:30 Urine Cocaine Screen Not Detected (NotDetected) 08/05/19 22:30 U Marijuana (THC) Screen Detected (NotDetected) H 08/05/19 22:30 Serum Alcohol <10 mg/dL 08/05/19 22:30 Vital Signs Temp 97.4 F L 09/01/19 06:39 Pulse 84 09/01/19 06:39 Resp 16 09/01/19 06:39 BP 90/55 09/01/19 06:39 Pulse Ox 99 09/01/19 06:39 Patient Condition at Discharge: Stable Plan - Discharge Summary Discharge Rx Participant: Yes New Discharge Prescriptions: New busPIRone HCl [Buspar] 30 mg PO BID 30 Days tab traZODone HCL [Desyrel] 200 mg PO HS 30 Days tab INSULIN ASPART (NovoLOG) [NovoLOG (formulary)] 0 unit SQ ACHS vial QUEtiapine [SEROquel] 12.5 mg PO BID PRN 30 Days tab PRN Reason: Anxiety Continue Triamcinolone 0.1% Cream [Kenalog 0.1% Cream] 1 applic TOPICAL QID PRN PRN Reason: Rash Dicyclomine [Bentyl] 20 mg PO AC-TID 30 Days cap Venlafaxine HCl ER [Effexor XR] 150 mg PO DAILY 30 Days cap.er.24h Melatonin 5 mg PO HS 30 Days tablet Cholestyramine (with Sugar) [Questran Packet] 4 gm PO BID@1000,1800 30 Days packet Insulin Lispro [Admelog] 15 units SQ AC-TID #1 vial Gabapentin [Neurontin] 600 mg PO BID 30 Days cap Discontinued busPIRone HCl [Buspar] 20 mg PO BID 30 Days tab traZODone HCL 300 mg PO HS 30 Days tab Insulin Detemir (Levemir) [Levemir] 34 unit SQ DAILY@0700 #1 syr Discharge Medication List Triamcinolone 0.1% Cream [Kenalog 0.1% Cream] 1 applic TOPICAL QID PRN 07/15/19 [History] Cholestyramine (with Sugar) [Questran Packet] 4 gm PO BID@1000,1800 30 Days packet 08/04/19 [Rx] Dicyclomine [Bentyl] 20 mg PO AC-TID 30 Days cap 08/04/19 [Rx] Insulin Lispro [Admelog] 15 units SQ AC-TID #1 vial 08/04/19 [Rx] Melatonin 5 mg PO HS 30 Days tablet 08/04/19 [Rx] Venlafaxine HCl ER [Effexor XR] 150 mg PO DAILY 30 Days cap.er.24h 08/04/19 [Rx] Gabapentin [Neurontin] 600 mg PO BID 30 Days cap 09/01/19 [Rx] INSULIN ASPART (NovoLOG) [NovoLOG (formulary)] 0 unit SQ ACHS vial 09/01/19 [Rx] QUEtiapine [SEROquel] 12.5 mg PO BID PRN 30 Days tab 09/01/19 [Rx] busPIRone HCl [Buspar] 30 mg PO BID 30 Days tab 09/01/19 [Rx] traZODone HCL [Desyrel] 200 mg PO HS 30 Days tab 09/01/19 [Rx] Follow up Appointment(s)/Referral(s): Brown Valenzuela MD [Primary Care Provider] - 1-2 days Activity/Diet/Wound Care/Special Instructions: Activity and diet as tolerated. Avoid the use of street drugs and alcohol. Take all medications as prescribed. When you are in need of refills on your medications please contact your medical provider and/or outpatient psychiatrist to have this done. Please go to scheduled outpatient appointment for aftercare treatment. If symptoms return or become worse, call the crisis line at and/or go to the nearest emergency room for evaluation. Discharge Disposition: HOME SELF-CARE
[2019-09-01] MEDS: QUEtiapine 25 MG TAB PO PRN (12:18)
[2019-09-01 12:26] LABS: Glucose,Whole Blood 228 mg/dL (75-99)
--- NOTE | 2019-09-02 09:23 | CDI ---
Documentation Clarification Form Date: 09/02/19 From: Gerda Lr Phone: If you have a question about this query, please contact Dianna Ontiveros Legal Consultant at [phone] between 8am and 5pm. Admit Date: 08/06/19 Discharge Date: 09/01/19 Patient Name: LILIAM MORSE Visit Number: [id number] ATTENTION: The Clinical Documentation Specialists (CDI) and [facility] Coding Staff appreciate your assistance in clarifying documentation. Please respond to the clarification below the line at the bottom and electronically sign. The CDI & [facility] Coding staff will review the response and follow-up if needed. Please note: Queries are made part of the Legal Health Record. If you have any questions, please contact the author of this message via ITS. Dear Dr. Brown Valenzuela, The patient has uncontrolled Type I Insulin-dependent diabetes, as indicated in the consult. POC Glucose: 71, 198, 166, 213, 328, 67, 73, 165, 167, 150, 234, 86, 82, 86, 103, 170, 278, 316, 252, 106, 130, 229, 185, 203, 133, 206, 151, 153, 120, 254, 120, 128, 98, 214, 193, 123, 123, 245, 218, 85, 127, 186, 192, 67, 77, 156, 190, 189, 244, 198, 156, 102, 221, 189, 122, 90, 278, 142, 155, 115, 265, 114, 271, 176, 76, 128, 116, 155, 312, 136, 150, 100, 260, 112, 64, 87, 135, 172, 219, 99, 53, 102, 180, 159, 281, 116, 96, 96, 215, 103, 106, 95, 194, 61, 68, 114, 169, 93, 280, 144, 105, 83, 189, 104, 169, 83, 207, 92, 121, 96, 126, 142, 129, 72, 156, 189, 104, 179, 94, 202, 136, 192, 154, 177, 78, 129, 113, 197, 228 Glucose: 51, 229 Treatment: Insulin Novolog Sliding scale protocol, hypoglycemia protocol Per [facility] - query the provider for clarification whether the patient has hyperglycemia or hypoglycemia so that the appropriate code may be reported - uncontrolled diabetes indicates that the patient's blood sugar is not at an acceptable level, because it is either too high or too low. In order to capture the severity of Illness and necessary documentation specificity, please clarify if Type 2 uncontrolled diabetes is: Hyperglycemia Hypoglycemia Both Other, please specify Unable to Determine MTDD
--- NOTE | 2019-09-02 10:31 | MISC ---
MISCELLANOUS REPORT QUERY: First of all, the patient is a type 1 diabetic, not a type 2 and it is both hyper and hypoglycemia. MMODL / IJN: [id number] /
== END 2019-09-01 17:05 | disposition home or self-care (01) | DRG 885 ==
LOC: EC 21:38 → 3MHU 08-06 06:20
PROVIDERS: ADMIT Psychiatry & Neurology Psychiatry; ATTEND Psychiatry & Neurology Psychiatry
DX: F33.9 Major depressive disorder, recurrent, unspecified (principal); E10.43 Type 1 diabetes mellitus with diabetic autonomic (poly)neuropathy; E10.649 Type 1 diabetes mellitus with hypoglycemia without coma; K31.84 Gastroparesis; Z91.19 Patient's noncompliance with other medical treatment and regimen; E10.65 Type 1 diabetes mellitus with hyperglycemia; T38.3X2A Poisoning by insulin and oral hypoglycemic [antidiabetic] drugs, intentional self-harm, initial encounter; T43.211A Poisoning by selective serotonin and norepinephrine reuptake inhibitors, accidental (unintentional), initial encounter; E87.6 Hypokalemia; F41.9 Anxiety disorder, unspecified; F12.10 Cannabis abuse, uncomplicated; F15.11 Other stimulant abuse, in remission; J45.909 Unspecified asthma, uncomplicated; R48.2 Apraxia; L20.9 Atopic dermatitis, unspecified; G47.00 Insomnia, unspecified; Z79.4 Long term (current) use of insulin; Z79.899 Other long term (current) drug therapy; Z71.51 Drug abuse counseling and surveillance of drug abuser; Z71.41 Alcohol abuse counseling and surveillance of alcoholic; Z91.5 Personal history of self-harm; Z63.9 Problem related to primary support group, unspecified; Z98.890 Other specified postprocedural states; Z82.3 Family history of stroke; Z83.49 Family history of other endocrine, nutritional and metabolic diseases; Z82.49 Family history of ischemic heart disease and other diseases of the circulatory system
CPT/HCPCS: 36415; 80048; 80053; 80306; 80320; 80329; 82075; 83520; 83735; 85025; 93005; 96361; 96365; 96366; 99291

== ENCOUNTER 2019-12-04 13:06 | Observation (INO) | payer OTHER ==
[2019-12-04 13:15] LABS: Glucose,Whole Blood 236 mg/dL (75-99)
[2019-12-04] MEDS ORDERED: SODIUM CHLORIDE 0.9% 1,000 ML IV STA (13:19)
[2019-12-04] MEDS ORDERED: ONDANSETRON 4 MG/2 ML VIAL IVP STA (13:36)
[2019-12-04 13:42] LABS: VBG PH 7.45 (7.31-7.41)
[2019-12-04 13:42] LABS: Basophils # (A) 0.1 k/uL (0-0.2); Basophils % (A) 1 %; Eosinophils # (A) 0.2 k/uL (0-0.7); Eosinophils % (A) 2 %; HGB 17.3 gm/dL (13.0-17.5); Lymphocytes # (A) 2.4 k/uL (1.0-4.8); Lymphocytes % (A) 29 %; MCH 30.7 pg (25.0-35.0); MCHC 35.3 g/dL (31.0-37.0); MCV 86.9 fL (80.0-100.0); Mean Platelet Volume 7.1; Monocytes # (A) 0.4 k/uL (0-1.0); Monocytes % (A) 5 %; Neutrophils # (A) 5.3 k/uL (1.3-7.7); Neutrophils % (A) 63 %; Platelet Count 343 k/uL (150-450); RBC 5.64 m/uL (4.30-5.90); WBC 8.5 k/uL (3.8-10.6)
[2019-12-04 14:01] LABS: ALT 14 U/L (4-49); AST 15 U/L (17-59); African American GFR (CKD) >90 (>60 ml/min/1.73 sqM); Albumin 4.8 g/dL (3.5-5.0); Alkaline Phosphatase 140 U/L (38-126); Anion Gap 17 mmol/L; Blood Urea Nitrogen 16 mg/dL (9-20); Calcium 9.5 mg/dL (8.4-10.2); Carbon Dioxide 18 mmol/L (22-30); Chloride 102 mmol/L (98-107); Glucose 261 mg/dL (74-99); Magnesium 1.9 mg/dL (1.6-2.3); Non-African American GFR(CKD) >90 (>60 ml/min/1.73 sqM); Potassium 4.2 mmol/L (3.5-5.1); Sodium 137 mmol/L (137-145); Total Bilirubin 0.6 mg/dL (0.2-1.3); Total Protein 7.8 g/dL (6.3-8.2)
--- NOTE | 2019-12-04 14:14 | ED ---
General Adult HPI - General Chief complaint: Nausea/Vomiting/Diarrhea Stated complaint: NVD Time Seen by Provider: 12/04/19 13:08 Source: patient, EMS, RN notes reviewed, old records reviewed Mode of arrival: EMS Limitations: no limitations - History of Present Illness Initial comments: 24-year-old male with type 1 diabetes presenting for evaluation of vomiting, dehydration. Patient has had approximately 24 hours of vomiting with some mild abdominal pain. He states he has been taking his insulin. He has recurrent history of diabetic ketoacidosis. History of medical noncompliance. No diarrhea. No chest pain. No fever. - Related Data Home Medications Medication Instructions Recorded Confirmed Insulin Glargine,Hum.rec.anlog 40 units SQ DAILY 09/01/19 09/01/19 [Basaglar Kwikpen U-100] Insulin Lispro [Admelog] 4 units SQ AC-LUNCH 09/01/19 09/01/19 Insulin Lispro [Admelog] 10 units SQ AC-BID 09/01/19 09/01/19 Venlafaxine HCl [Effexor XR] 150 mg PO DAILY 09/01/19 09/01/19 Previous Rx's Medication Instructions Recorded Cholestyramine (with Sugar) 4 gm PO BID@1000,1800 30 Days 08/04/19 [Questran Packet] packet Cholestyramine (with Sugar) 4 gm PO BID@0630,1630 30 Days 09/01/19 [Questran Packet] packet Dicyclomine [Bentyl] 20 mg PO AC-TID 30 Days cap 09/01/19 Gabapentin [Neurontin] 600 mg PO BID 30 Days cap 09/01/19 QUEtiapine [SEROquel] 12.5 mg PO BID PRN 30 Days tab 09/01/19 busPIRone HCl [Buspar] 30 mg PO BID 30 Days tab 09/01/19 traZODone HCL [Desyrel] 200 mg PO HS 30 Days tab 09/01/19 Allergies Allergy/AdvReac Type Severity Reaction Status Date / Time No Known Allergies Allergy Verified 12/04/19 13:12 Review of Systems ROS Statement: Those systems with pertinent positive or pertinent negative responses have been documented in the HPI. ROS Other: All systems not noted in ROS Statement are negative. Past Medical History Past Medical History: Asthma, Diabetes Mellitus, Skin Disorder Additional Past Medical History / Comment(s): , insulin dependent diabetes oral apraxia; previous suicidal attempts anxiety/depression, previous hospital physicians for DKA,gastroparesis. History of Any Multi-Drug Resistant Organisms: None Reported Past Surgical History: Adenoidectomy Additional Past Surgical History / Comment(s): 2002 Past Anesthesia/Blood Transfusion Reactions: No Reported Reaction Past Psychological History: Anxiety, Depression Smoking Status: Never smoker Past Alcohol Use History: None Reported Past Drug Use History: None Reported - Past Family History Mother Family Medical History: CVA/TIA Father Family Medical History: Hyperlipidemia, Hypertension Additional Family Medical History / Comment(s): . General Exam Limitations: no limitations General appearance: alert, in no apparent distress Head exam: Present: atraumatic, normocephalic Eye exam: Present: normal appearance, PERRL ENT exam: Present: mucous membranes dry Neck exam: Present: normal inspection. Absent: meningismus Respiratory exam: Absent: respiratory distress Cardiovascular Exam: Present: regular rate, normal rhythm GI/Abdominal exam: Present: soft. Absent: distended, tenderness, guarding Extremities exam: Present: normal inspection, normal capillary refill. Absent: pedal edema Neurological exam: Present: alert, oriented X3, CN II-XII intact. Absent: motor sensory deficit Psychiatric exam: Present: normal affect, normal mood Skin exam: Present: warm, dry, intact. Absent: cyanosis, diaphoretic Course Vital Signs 12/04/19 12/04/19 13:12 13:39 Pulse Rate 96 82 Respiratory 22 24 Rate Blood Pressure 123/72 129/83 O2 Sat by Pulse 100 99 Oximetry EKG Findings - EKG Comments: EKG Findings:: EKG: Normal sinus rhythm, rate of 78, HI interval 156, QRS duration 104, QTC [address] segment elevation. Procedures - [place] Protocol (Time Out) Nurse: Velia Zuniga Medical Decision Making - Medical Decision Making 24-year-old male with nausea and vomiting. Patient is mildly tachypneic and appears dehydrated. Laboratory studies are obtained. Patient has a normal CBC, as well as a CMP showing anion gap metabolic acidosis with a CO2 of 18 and an anion gap of 17. He has a lactic acidosis of 3.2. His sugar is mildly elevated 261 and he is acetone positive. These labs represent a mild diabetic ketoacidosis with lactic acidosis. He is placed on normal saline, IV insulin, and dextrose awaiting the closure of the anion gap. He will be admitted for treatment of diabetic ketoacidosis and dehydration. Case discussed with Dr. Valenzuela - Lab Data Result diagrams: 12/04/19 13:25 12/04/19 13:25 Lab Results 12/04/19 12/04/19 12/04/19 Range/Units 13:12 13:25 13:25 WBC 8.5 (3.8-10.6) k/uL RBC 5.64 (4.30-5.90) m/uL Hgb 17.3 (13.0-17.5) gm/dL Hct 49.0 (39.0-53.0) % MCV 86.9 (80.0-100.0) fL MCH 30.7 (25.0-35.0) pg MCHC 35.3 (31.0-37.0) g/dL RDW 12.0 (11.5-15.5) % Plt Count 343 (150-450) k/uL Neutrophils % 63 % Lymphocytes % 29 % Monocytes % 5 % Eosinophils % 2 % Basophils % 1 % Neutrophils # 5.3 (1.3-7.7) k/uL Lymphocytes # 2.4 (1.0-4.8) k/uL Monocytes # 0.4 (0-1.0) k/uL Eosinophils # 0.2 (0-0.7) k/uL Basophils # 0.1 (0-0.2) k/uL VBG pH (7.31-7.41) VBG pCO2 (37-51) mmHg VBG HCO3 (24-28) mmol/L Sodium 137 (137-145) mmol/L Potassium 4.2 (3.5-5.1) mmol/L Chloride 102 (98-107) mmol/L Carbon Dioxide 18 L (22-30) mmol/L Anion Gap 17 mmol/L BUN 16 (9-20) mg/dL Creatinine 0.64 L (0.66-1.25) mg/dL Est GFR (CKD-EPI)AfAm >90 (>60 ml/min/1.73 sqM) Est GFR (CKD-EPI)NonAf >90 (>60 ml/min/1.73 sqM) Glucose 261 H (74-99) mg/dL POC Glucose (mg/dL) 236 H (75-99) mg/dL POC Glu [employer] ID Luiz Moreno Plasma Lactic Acid Len (0.7-2.0) mmol/L Calcium 9.5 (8.4-10.2) mg/dL Magnesium 1.9 (1.6-2.3) mg/dL Total Bilirubin 0.6 (0.2-1.3) mg/dL AST 15 L (17-59) U/L ALT 14 (4-49) U/L Alkaline Phosphatase 140 H (38-126) U/L Total Protein 7.8 (6.3-8.2) g/dL Albumin 4.8 (3.5-5.0) g/dL Acetone, Qual Positive (Negative) 12/04/19 12/04/19 Range/Units 13:25 13:38 WBC (3.8-10.6) k/uL RBC (4.30-5.90) m/uL Hgb (13.0-17.5) gm/dL Hct (39.0-53.0) % MCV (80.0-100.0) fL MCH (25.0-35.0) pg MCHC (31.0-37.0) g/dL RDW (11.5-15.5) % Plt Count (150-450) k/uL Neutrophils % % Lymphocytes % % Monocytes % % Eosinophils % % Basophils % % Neutrophils # (1.3-7.7) k/uL Lymphocytes # (1.0-4.8) k/uL Monocytes # (0-1.0) k/uL Eosinophils # (0-0.7) k/uL Basophils # (0-0.2) k/uL VBG pH 7.45 H (7.31-7.41) VBG pCO2 30 L (37-51) mmHg VBG HCO3 21 L (24-28) mmol/L Sodium (137-145) mmol/L Potassium (3.5-5.1) mmol/L Chloride (98-107) mmol/L Carbon Dioxide (22-30) mmol/L Anion Gap mmol/L BUN (9-20) mg/dL Creatinine (0.66-1.25) mg/dL Est GFR (CKD-EPI)AfAm (>60 ml/min/1.73 sqM) Est GFR (CKD-EPI)NonAf (>60 ml/min/1.73 sqM) Glucose (74-99) mg/dL POC Glucose (mg/dL) (75-99) mg/dL POC Glu [employer] ID Plasma Lactic Acid Len 3.3 H* (0.7-2.0) mmol/L Calcium (8.4-10.2) mg/dL Magnesium (1.6-2.3) mg/dL Total Bilirubin (0.2-1.3) mg/dL AST (17-59) U/L ALT (4-49) U/L Alkaline Phosphatase (38-126) U/L Total Protein (6.3-8.2) g/dL Albumin (3.5-5.0) g/dL Acetone, Qual (Negative) Disposition Clinical Impression: DKA (diabetic ketoacidoses), Nausea & vomiting Disposition: ADMITTED IP TO THIS [facility] Condition: Stable Is patient prescribed a controlled substance at d/c from ED?: No Referrals: Brown Valenzuela MD [Primary Care Provider] - 1-2 days Decision to Admit Reason: Admit from EC Decision Date: 12/04/19 Decision Time: 14:33
[2019-12-04] MEDS ORDERED: D5-0.45% NACL WITH KCL 20MEQ/L 1,000 ML IV SCH (14:30)
[2019-12-04] MEDS: SODIUM CHLORIDE 0.9% 1,000 ML IV SCH (15:15)
[2019-12-04 15:16] LABS: Glucose,Whole Blood 264 mg/dL (75-99)
[2019-12-04] MEDS: INSULIN REGULAR 100 UNIT in SODIUM CHLORIDE 0.9% 100 ML IV SCH (15:20)
--- NOTE | 2019-12-04 16:26 | HP ---
HISTORY AND PHYSICAL CHIEF COMPLAINT: Diabetic ketoacidosis. HISTORY OF PRESENT ILLNESS: This is another admission for this noncompliant young man. He is in and out of the hospital continuously. He recently was sent to a long-term for several months where he did very well. He got along well there and liked the individuals running the program and they liked him. While there, he was very compliant, his blood sugars were excellent and he did well. However, he was not able to stay there and as soon as he left, he started his usual behavior of not taking care of himself, not taking his insulin and he came back in to the emergency room in [facility] with a blood sugar 359, bicarb of 18 and an anion gap of 18. REVIEW OF SYSTEMS: He denies any headaches, change in vision or hearing, focal neurologic problems, double vision, chest pain, shortness of breath, cough, hemoptysis, abdominal pain, nausea, vomiting, melena, hematochezia, hematuria, dysuria, etc. Past medical history, family history and personal and social histories are all otherwise unchanged or unremarkable. He does not smoke or drink. PHYSICAL EXAMINATION: Blood pressure is 128/64 with a pulse of 95. He is afebrile. In general, he appeared to be slender and dehydrated. Head, ears, eyes, nose, mouth, and throat were normal except for dry mucous membranes. Neck is supple. Chest is clear. Cardiac exam demonstrates sinus tachycardia and there are no murmurs or extra sounds. Abdomen is soft, nontender without any visceromegaly or masses. Bowel sounds are present. Extremities are normal. Neurologically he is intact. He is admitted to the hospital diagnoses: 1. Diabetic ketoacidosis. 2. Personality disorder. 3. Depression. 4. Dehydration. 5. Electrolyte imbalance. PLAN: 1. Bed rest. 2. IV fluids. 3. Control blood sugars. 4. Rehydrate. 5. Probable psychiatry evaluation (again). MMODL / IJN: [id number] /
[2019-12-04 16:27] LABS: Glucose,Whole Blood 237 mg/dL (75-99)
[2019-12-04 17:29] LABS: Glucose,Whole Blood 205 mg/dL (75-99)
[2019-12-04 17:47] LABS: African American GFR (CKD) >90 (>60 ml/min/1.73 sqM); Anion Gap 12 mmol/L; Blood Urea Nitrogen 17 mg/dL (9-20); Carbon Dioxide 22 mmol/L (22-30); Chloride 105 mmol/L (98-107); Glucose 231 mg/dL (74-99); Non-African American GFR(CKD) >90 (>60 ml/min/1.73 sqM); Phosphorus 2.7 mg/dL (2.5-4.5); Sodium 139 mmol/L (137-145)
[2019-12-04 18:43] LABS: Glucose,Whole Blood 172 mg/dL (75-99)
[2019-12-04 19:03] LABS: Glucose,Whole Blood 176 mg/dL (75-99)
[2019-12-04 20:00] LABS: Glucose,Whole Blood 157 mg/dL (75-99)
[2019-12-04 21:00] LABS: Glucose,Whole Blood 146 mg/dL (75-99)
[2019-12-04 21:56] LABS: Appearance,Urine Clear (Clear); Bilirubin,Urine Negative (Negative); Blood,Urine Negative (Negative); Color,Urine Yellow; Glucose,Urine (UA) 4+ (Negative); Leukocyte Esterase,Urine Negative (Negative); Nitrite,Urine Negative (Negative); PH, Urine 5.5 (5.0-8.0); Protein,Urine Trace (Negative); Specific Gravity,Urine 1.034 (1.001-1.035); Urobilinogen,Urine <2.0 mg/dL (<2.0)
[2019-12-04 22:01] LABS: African American GFR (CKD) >90 (>60 ml/min/1.73 sqM); Anion Gap 8 mmol/L; Blood Urea Nitrogen 16 mg/dL (9-20); Carbon Dioxide 28 mmol/L (22-30); Chloride 102 mmol/L (98-107); Glucose 116 mg/dL (74-99); Non-African American GFR(CKD) >90 (>60 ml/min/1.73 sqM); Phosphorus 3.6 mg/dL (2.5-4.5); Potassium 4.7 mmol/L (3.5-5.1); Sodium 138 mmol/L (137-145)
[2019-12-04 22:03] LABS: Ketones,Urine 3+ (Negative)
[2019-12-04 22:05] LABS: Glucose,Whole Blood 94 mg/dL (75-99)
[2019-12-05] MEDS ORDERED: INSULIN DETEMIR (LEVEMIR) 100 UNIT/ML SYR SQ SCH (07:00)
[2019-12-05] MEDS: INSULIN REGULAR 100 UNIT in SODIUM CHLORIDE 0.9% 100 ML IV SCH (07:32)
[2019-12-05] MEDS: SODIUM CHLORIDE 0.9% 1,000 ML IV SCH (07:32)
[2019-12-05] MEDS ORDERED: VENLAFAXINE HCL ER 150 MG CAP PO SCH (09:00)
[2019-12-05 10:37] VITALS: RESP 16; TEMP 98.1
[2019-12-05 11:35] VITALS: BMI 20.9
[2019-12-05 11:48] LABS: Glucose,Whole Blood 257 mg/dL (75-99)
[2019-12-05] MEDS: INSULIN ASPART (NovoLOG) 100 UNIT/ML VIAL SQ SCH ×2 (12:38→12:39)
--- NOTE | 2019-12-05 14:18 | P.CN ---
Psychiatric Consult - . Consult date: 12/05/19 Consult:: Reason for consultation: Depression, and history of psychiatric treatment Identifying data: Patient is a 24-year-old and disheveled male who currently lives in a [facility], has previous psychiatric history of major depressive disorder. The patient was seen while he was at the medical floor. Chief complaint and history of present illness: The patient was admitted to medical floor because of vomiting and dehydration. Patient reports feeling stable emotionally at this current time, and he denies any active symptoms of mood instability, severe depression, suicidal, or homicidal. He continued to receive outpatient treatment with [facility] Dr. Cohen , and his currently on medications lithium 300 mg at bedtime, trazodone 200 mg at bedtime as needed for anxiety, BuSpar 30 mg twice daily, and Effexor 150 mg daily. Patient reports last time he was hospitalized for mental illness was 3 month ago, and he denies any suicidal thoughts over the last 3 months. He denies any history of manic symptoms, but reports sometimes feeling irritated with some mood changes. Denies any history of feeling euphoric, grandiosity, absence need to sleep due to increased activities, or impulsive behavior. Denies any history of hallucinations, paranoid ideation, or delusions. He denies history of severe anxiety symptoms, or panic attacks. He denies any history of PTSD symptoms including nightmares or flashbacks. Past psychiatric history: Previous psychiatric hospitalization: Multiple previous psychiatric hospitalizations with the last time was at July of this year. Previous suicidal attempts: Reports previous suicidal attempts with the last time by overdose on trazodone and insulin which was 3 months ago. Patient is currently affiliated with [facility] for outpatient psychiatric treatment and receiving above-mentioned medications Substance use history: Reports to smoking half pack per day. Denies any history of alcohol use. Reports to smoking marijuana a few times weekly with last time was few weeks ago. Reports history of benzodiazepine dependence but denies any current use of benzodiazepines. Family history of psychiatric illness: Reports anxiety and depression runs on both sides of his family. Denies any family history of suicide or addiction. 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 Never , and has no children. Throughout school at 11th grade. Denies any history of legal problems. Mental status examination; Appearance: The patient appears stated age, adequately groomed and dressed, no specific features. Gait/posture: Normal gait, Normal arm swinging: No abnormal movements. Attitude and behavior: engaged, cooperative, eye contact. Motor activity: Normal psychomotor activity Speech: Normal rate, tone. Mood: "Fine" Affect: Constricted Thought form: goal-directed, linear, coherent. Thought content: Non-delusional, denies suicidal thoughts, denies homicidal thoughts, denies intentions or plans. Perception: Denies any auditory or visual hallucinations Attention: No impairment. Patient was able to repeat serial 5. Orientation: Patient patient was fully oriented to time place person and situation. Insight: Patient has fair insight about his psychiatric disorder. Judgment: Patient has fair judgment about his psychiatric treatment. Assessment: Major depressive disorder, recurrent, severe, without psychotic features, in remission. Recommendations: Addressed and ensured patient's safety, patient is not actively suicidal, and he denies any active plan or intent of suicide. Patient is psychiatrically stable, and does not meet the criteria for psychiatric hospitalization. Medication management: Continue outpatient psychiatric medications as reported; trazodone 200 mg at bedtime as needed for insomnia, lithium 300 mg at bedtime for depression, BuSpar 30 mg twice daily for anxiety, and Effexor 150 mg daily for depression. Refer the patient to follow up with his outpatient psychiatric treatment after discharge Discussed the treatment plan with the requesting physician/service. Brief supportive psychotherapy was provided regarding patient's acute and chronic stress. Psycho-education was provided to the patient. Thank you for permitting me to assist in this patient's treatment. Please call psychiatry department if you have any question or need further help with this case. 12/05/19 14:08
[2019-12-05 15:11] VITALS: PULSE 74
[2019-12-05 15:12] VITALS: BP 124/85
[2019-12-05] MEDS ORDERED: LITHIUM CARBONATE 300 MG CAP PO SCH (21:00)
[2019-12-05] MEDS ORDERED: traZODone HCL 100 MG TAB PO SCH (21:00)
[2019-12-05] MEDS ORDERED: busPIRone HCl 10 MG TAB PO SCH (21:00)
--- NOTE | 2019-12-06 00:57 | DS ---
DISCHARGE SUMMARY CHIEF COMPLAINT: DKA. HISTORY OF PRESENT ILLNESS AND PHYSICAL EXAM: Details of this man's history and physical can be found in the initial workup. LABORATORY STUDIES: While he was in the hospital he had laboratory studies, details of which can be found in the laboratory section of his chart. COURSE IN THE HOSPITAL: After admission he was placed on bedrest and started on intravenous fluids and insulin drip. His gap closed quite quickly. Blood sugars came down. He was doing well and it was felt that he could go home on the . He will go home on his usual activity, diet and medication and will follow up in the office in several days. FINAL DIAGNOSES: 1. Diabetic ketoacidosis. 2. Depression. 3. Eczema. OPERATIONS: None. CONSULTATIONS: Psychiatry. He is improved. GRACE / ALDEN: [id number] /
== END 2019-12-05 17:06 | disposition home or self-care (01) ==
LOC: EC 13:06 → 3SCARD 14:29 → INTOOBSV 14:29 → UNDODISIN 12-05 17:06
PROVIDERS: ADMIT Family Medicine; ATTEND Family Medicine
DX: E10.10 Type 1 diabetes mellitus with ketoacidosis without coma (principal); F33.2 Major depressive disorder, recurrent severe without psychotic features; L30.9 Dermatitis, unspecified; E86.0 Dehydration; F41.9 Anxiety disorder, unspecified; F17.210 Nicotine dependence, cigarettes, uncomplicated; G47.00 Insomnia, unspecified; F43.9 Reaction to severe stress, unspecified; R06.82 Tachypnea, not elsewhere classified; E10.43 Type 1 diabetes mellitus with diabetic autonomic (poly)neuropathy; K31.84 Gastroparesis; Z91.19 Patient's noncompliance with other medical treatment and regimen; F60.9 Personality disorder, unspecified; E87.8 Other disorders of electrolyte and fluid balance, not elsewhere classified; Z91.14 Patient's other noncompliance with medication regimen; J45.909 Unspecified asthma, uncomplicated; Z91.5 Personal history of self-harm; Z79.899 Other long term (current) drug therapy; Z79.4 Long term (current) use of insulin; Z11.59 Encounter for screening for other viral diseases; Z82.49 Family history of ischemic heart disease and other diseases of the circulatory system; Z82.3 Family history of stroke; Z81.8 Family history of other mental and behavioral disorders
CPT/HCPCS: 96361; 96365; 96375; 99285; 36415; 93005; 80051; 80053; 82565; 82803; 82009; 83605; 83735; 84100; 82947; 84520; 85025; 81003; G0378 ×2; U0003; J2405

== ENCOUNTER 2019-12-15 07:34 | Observation (INO) | payer OTHER ==
[2019-12-15 07:43] LABS: Glucose,Whole Blood 278 mg/dL (75-99)
[2019-12-15] MEDS ORDERED: SODIUM CHLORIDE 0.9% 1,000 ML IV STA ×2 (07:47)
--- NOTE | 2019-12-15 07:51 | ED ---
Recheck HPI - General Chief Complaint: Recheck/Abnormal Lab/Rx Stated Complaint: High Blood Sugar Time Seen by Provider: 12/15/19 07:37 Source: patient, EMS, RN notes reviewed, old records reviewed Mode of arrival: EMS Limitations: no limitations - History of Present Illness Initial Comments: Franki is a 24-year-old male with a history of type 1 diabetes who presents emergency department today stating that he woke up today with chest pain. He reports it seems to be sharp in nature and reproducible with movement. He also states that he was concerned his blood sugar has been high sees not been taking his insulin for the past week. He also mentions that he is suicidal as he is currently homeless and feels helpless. Patient states that he has no fevers or chills. Denies any shortness of breath or cough. - Related Data Home Medications Medication Instructions Recorded Confirmed Insulin Glargine,Hum.rec.anlog 40 units SQ DAILY 09/01/19 12/04/19 [Basaglar Kwikpen U-100] Insulin Lispro [Admelog] 10 units SQ AC-TID 09/01/19 12/04/19 Venlafaxine HCl [Effexor XR] 150 mg PO DAILY 09/01/19 12/04/19 Cholestyramine (with Sugar) 4 gm PO TID 12/04/19 12/04/19 [Questran Packet] Dicyclomine [Bentyl] 20 mg PO ACHS 12/04/19 12/04/19 [place] Carbonate 300 mg PO HS 12/04/19 12/04/19 busPIRone HCL [Buspar] 30 mg PO BID 12/04/19 12/04/19 Previous Rx's Medication Instructions Recorded Gabapentin [Neurontin] 600 mg PO BID 30 Days cap 09/01/19 traZODone HCL [Desyrel] 200 mg PO HS 30 Days tab 09/01/19 Allergies Allergy/AdvReac Type Severity Reaction Status Date / Time No Known Allergies Allergy Verified 12/15/19 07:38 Review of Systems ROS Statement: Those systems with pertinent positive or pertinent negative responses have been documented in the HPI. ROS Other: All systems not noted in ROS Statement are negative. Past Medical History Past Medical History: Asthma, Diabetes Mellitus, Skin Disorder Additional Past Medical History / Comment(s): , insulin dependent diabetes oral apraxia; previous suicidal attempts anxiety/depression, previous hospital physicians for DKA,gastroparesis. History of Any Multi-Drug Resistant Organisms: None Reported Past Surgical History: Adenoidectomy Additional Past Surgical History / Comment(s): 2002 Past Anesthesia/Blood Transfusion Reactions: No Reported Reaction Past Psychological History: Anxiety, Depression Smoking Status: Current some day smoker Past Alcohol Use History: None Reported Past Drug Use History: None Reported - Past Family History Mother Family Medical History: CVA/TIA Father Family Medical History: Hyperlipidemia, Hypertension Additional Family Medical History / Comment(s): . General Exam - General Exam Comments Initial Comments: 24-year-old male. Alert and oriented. No significant distress. Limitations: no limitations General appearance: alert, in no apparent distress Head exam: Present: atraumatic, normocephalic, normal inspection Eye exam: Present: normal appearance, PERRL, EOMI. Absent: scleral icterus, conjunctival injection, periorbital swelling ENT exam: Present: normal exam, mucous membranes moist Neck exam: Present: normal inspection. Absent: tenderness, meningismus, lymphadenopathy Respiratory exam: Present: normal lung sounds bilaterally. Absent: respiratory distress, wheezes, rales, rhonchi, stridor Cardiovascular Exam: Present: regular rate, normal rhythm, normal heart sounds, other (Patient has left-sided chest wall tenderness to palpation over the lower ribs.). Absent: systolic murmur, diastolic murmur, rubs, gallop, clicks GI/Abdominal exam: Present: soft, normal bowel sounds. Absent: distended, tenderness, guarding, rebound, rigid Extremities exam: Present: normal inspection, full ROM, normal capillary refill. Absent: tenderness, pedal edema, joint swelling, calf tenderness Back exam: Present: normal inspection Neurological exam: Present: alert, oriented X3, CN II-XII intact Course Vital Signs 12/15/19 12/15/19 07:38 07:45 Temperature 97.8 F Pulse Rate 98 Pulse Rate [ 94 [employer] ] Respiratory 18 Rate Blood Pressure 132/93 O2 Sat by Pulse 99 Oximetry Medical Decision Making - Medical Decision Making This is a 24-year-old male with history of diabetes presents presents with multiple complaints. Concern for a blood sugar, waking up with chest pain as well as complaint of suicidal ideations. At this time Patient was sent to be in mild DKA. Acetones positive. With concerns for suicidal thoughts as well and Patient noncompliant with his insulin Patient will be admitted at this time medically with consult to psychiatry. Patient placed on DKA protocol. - Lab Data Result diagrams: 12/15/19 07:55 12/15/19 07:55 Lab Results 12/15/19 12/15/19 12/15/19 Range/Units 07:41 07:55 07:55 WBC 7.9 (3.8-10.6) k/uL RBC 5.19 (4.30-5.90) m/uL Hgb 15.9 (13.0-17.5) gm/dL Hct 47.9 (39.0-53.0) % MCV 92.2 D (80.0-100.0) fL MCH 30.6 (25.0-35.0) pg MCHC 33.2 (31.0-37.0) g/dL RDW 12.1 (11.5-15.5) % Plt Count 273 (150-450) k/uL Neutrophils % 50 % Lymphocytes % 35 % Monocytes % 6 % Eosinophils % 6 % Basophils % 1 % Neutrophils # 4.0 (1.3-7.7) k/uL Lymphocytes # 2.7 (1.0-4.8) k/uL Monocytes # 0.5 (0-1.0) k/uL Eosinophils # 0.5 (0-0.7) k/uL Basophils # 0.1 (0-0.2) k/uL Sodium 136 L (137-145) mmol/L Potassium 4.7 (3.5-5.1) mmol/L Chloride 103 (98-107) mmol/L Carbon Dioxide 16 L (22-30) mmol/L Anion Gap 17 mmol/L BUN 15 (9-20) mg/dL Creatinine 0.66 (0.66-1.25) mg/dL Est GFR (CKD-EPI)AfAm >90 (>60 ml/min/1.73 sqM) Est GFR (CKD-EPI)NonAf >90 (>60 ml/min/1.73 sqM) Glucose 311 H (74-99) mg/dL POC Glucose (mg/dL) 278 H (75-99) mg/dL POC Glu [employer]ift [employer]ic Kourtney Stiles Calcium 8.7 (8.4-10.2) mg/dL Total Bilirubin 0.6 (0.2-1.3) mg/dL AST 14 L (17-59) U/L ALT 13 (4-49) U/L Alkaline Phosphatase 102 (38-126) U/L Total Protein 6.9 (6.3-8.2) g/dL Albumin 4.3 (3.5-5.0) g/dL Amylase 46 (30-110) U/L Lipase 44 (23-300) U/L Serum Alcohol <10 mg/dL Acetone, Qual Positive (Negative) 12/15/19 07:52 EKG shows normal sinus rhythm right axis deviation. Abnormal EKG. Ventricular rate of 94 bpm. Intervals 154 ms. QS duration is 94 ms. QT QTc is 360/450 ms. - Radiology Data Radiology results: report reviewed Interpreted by me: Chest x-ray is negative for any acute cardiopulmonary process. Disposition Clinical Impression: DKA (diabetic ketoacidoses), Suicidal behavior Disposition: ADMITTED IP TO THIS HOSP Condition: Stable Is patient prescribed a controlled substance at d/c from ED?: No Referrals: Brown Valenzuela MD [Primary Care Provider] - 1-2 days Time of Disposition: 09:02
[2019-12-15 08:30] LABS: ALT 13 U/L (4-49); AST 14 U/L (17-59); African American GFR (CKD) >90 (>60 ml/min/1.73 sqM); Albumin 4.3 g/dL (3.5-5.0); Alcohol <10 mg/dL; Alkaline Phosphatase 102 U/L (38-126); Amylase 46 U/L (30-110); Anion Gap 17 mmol/L; Blood Urea Nitrogen 15 mg/dL (9-20); Calcium 8.7 mg/dL (8.4-10.2); Carbon Dioxide 16 mmol/L (22-30); Chloride 103 mmol/L (98-107); Glucose 311 mg/dL (74-99); Non-African American GFR(CKD) >90 (>60 ml/min/1.73 sqM); Potassium 4.7 mmol/L (3.5-5.1); Sodium 136 mmol/L (137-145); Total Bilirubin 0.6 mg/dL (0.2-1.3); Total Protein 6.9 g/dL (6.3-8.2)
[2019-12-15 08:33] LABS: Basophils # (A) 0.1 k/uL (0-0.2); Basophils % (A) 1 %; Eosinophils # (A) 0.5 k/uL (0-0.7); Eosinophils % (A) 6 %; HCT 47.9 % (39.0-53.0); HGB 15.9 gm/dL (13.0-17.5); Lymphocytes # (A) 2.7 k/uL (1.0-4.8); Lymphocytes % (A) 35 %; MCH 30.6 pg (25.0-35.0); MCHC 33.2 g/dL (31.0-37.0); Mean Platelet Volume 7.5; Monocytes # (A) 0.5 k/uL (0-1.0); Monocytes % (A) 6 %; Neutrophils % (A) 50 %; Platelet Count 273 k/uL (150-450); RBC 5.19 m/uL (4.30-5.90); RDW 12.1 % (11.5-15.5); WBC 7.9 k/uL (3.8-10.6)
--- NOTE | 2019-12-15 08:35 | XR ---
EXAMINATION TYPE: XR chest 2V DATE OF EXAM: 12/15/2019 COMPARISON: Chest x-ray July 15, 2019. CTA chest June 24, 2018. HISTORY: Chest and abdominal pain. TECHNIQUE: Frontal and lateral views of the chest are obtained. FINDINGS: There is no focal air space opacity, pleural effusion, or pneumothorax seen. The cardiac silhouette size is within normal limits. The osseous structures are intact. IMPRESSION: No acute cardiopulmonary process. No significant change from prior.
[2019-12-15 08:38] LABS: MCV 92.2 fL (80.0-100.0)
[2019-12-15] MEDS ORDERED: IBUPROFEN 400 MG TAB PO PRN (09:03)
[2019-12-15] MEDS ORDERED: KETOROLAC 30 MG/ML 1 ML VIAL IVP PRN (09:03)
[2019-12-15] MEDS ORDERED: ONDANSETRON 4 MG/2 ML VIAL IVP PRN (09:03)
[2019-12-15] MEDS ORDERED: ACETAMINOPHEN TAB 325 MG TAB PO PRN (09:03)
[2019-12-15] MEDS ORDERED: NALOXONE 0.4 MG/ML 1 ML VIAL IV PRN (09:03)
[2019-12-15] MEDS: SODIUM CHLORIDE 0.9% 1,000 ML IV SCH ×4 (09:08→22:48)
[2019-12-15 09:12] LABS: Glucose,Whole Blood 272 mg/dL (75-99)
[2019-12-15] MEDS: D5-0.45% NACL WITH KCL 20MEQ/L 1,000 ML IV SCH ×3 (09:16→22:07)
[2019-12-15] MEDS: INSULIN REGULAR 100 UNIT in SODIUM CHLORIDE 0.9% 100 ML IV SCH ×2 (09:20→22:06)
[2019-12-15 10:16] LABS: Glucose,Whole Blood 217 mg/dL (75-99)
[2019-12-15 10:46] LABS: Appearance,Urine Clear (Clear); Bilirubin,Urine Negative (Negative); Blood,Urine Negative (Negative); Color,Urine Light Yellow; Glucose,Urine (UA) 4+ (Negative); Leukocyte Esterase,Urine Negative (Negative); Nitrite,Urine Negative (Negative); Protein,Urine Trace (Negative); Specific Gravity,Urine 1.032 (1.001-1.035); Urobilinogen,Urine <2.0 mg/dL (<2.0)
[2019-12-15 10:57] LABS: Ketones,Urine 4+ (Negative)
[2019-12-15 10:59] LABS: Amphetamine Screen,Urine Not Detected (NotDetected); Barbiturate Screen,Urine Not Detected (NotDetected); Benzodiazepines Screen,Urine Not Detected (NotDetected); Cocaine Screen,Urine Not Detected (NotDetected); Methadone Screen, Urine Not Detected (NotDetected); Opiate Screen,Urine Not Detected (NotDetected); Oxycodone Screen, Urine Not Detected (NotDetected); Phencyclidine Screen,Urine Not Detected (NotDetected); Tricyclic Antidepressant,Urine Not Detected (NotDetected); Urn Cannabinoid Scrn Detected (NotDetected)
[2019-12-15 11:23] LABS: Glucose,Whole Blood 167 mg/dL (75-99)
[2019-12-15 12:15] LABS: Glucose,Whole Blood 127 mg/dL (75-99)
[2019-12-15 13:02] LABS: Glucose,Whole Blood 133 mg/dL (75-99)
[2019-12-15 13:56] VITALS: BMI 21.2
[2019-12-15 14:03] LABS: Glucose,Whole Blood 156 mg/dL (75-99)
--- NOTE | 2019-12-15 14:27 | P.CN ---
Psychiatric Consult - . Consult date: 12/15/19 Consult:: 12/15/19 13:17 IDENTIFYING DATA: Patient is a 24-year-old male with a history of depression and type 1 diabetes currently single with no kids living with his friend. HPI: Patient presented to the ED with complaints of chest pain earlier yesterday. Patient reported in the ER that he had not been taking his insulin for the past week or his medications. He and also endorsed being homeless and suicidal along with being helpless. Patient was found to be in mild DKA and acetones were found. Patient's UDS was positive for THC. Patient was admitted to the medical floors for treatment of DKA. Psychiatrist consulted for suicidal ideations. Patient was last discharged from the mental health unit in August 2019 and has had multiple review psychiatric admissions for depression and suicidal thoughts. He claims that after being discharged from the mental health unit he went to live at a assisted and states that things are going well for him there however he was then transferred to another home however claims that he did not like it there. He states that there is "too many rules" and states that he did not like the people at this place. He states that now he is being evicted from that house because "I was never there". He states that he has been staying with friends at their houses and "not doing much". He states that he cannot work and states that he is feeling overwhelmed because he doesn't have any energy because "I feel too weak". Patient was catastrophizing during conversation. He is feeling overwhelmed and helpless. He claims that he was having a rough week and has been off his medications for about a week now. He states that the house that he was in will not give him his medications back. He states that she called the ambulance as he wasn't feeling well. Patient admits to using marijuana 1-2 times a week and states that he only takes "a couple of hits". He denies any other recreational drug use and denies cigarette use. Patient admitted to passive suicidal thoughts over no direct plan and denied any auditory or visual hallucinations. PAST PSYCHIATRIC HISTORY: Patient states that he has history of depression and anxiety and has had multiple hospitalizations. Patients last psychiatric hospitalization was between July to August 2019. Patient is established with [facility]. He admitted to several suicide attempts in the past. PMH: Diabetes mellitus type 1 uncontrolled, asthma, skin disorder ALLERGIES: as per EMR CHEMICAL DEPENDENCY HISTORY: as per HPI FAMILY PSYCHIATRIC/SUBSTANCE USE HISTORY: One of his cousins committed suicide SOCIAL HISTORY: Patient is currently single has no kids is living with his friend at this time. He claims that he has attempted to work several different jobs however feel he cannot work at this time. MENTAL STATUS EXAM: General Appearance: Patient appears to be stated age is alert, guarded/evasive, uncooperative. Patient appears to have poor hygiene and grooming. Behavior: Patient is laying in bed without any agitated behavior. Speech: Patient's speech is fluent and nonpressured. Soft tone. Mood/Affect: Patient reports their mood is depressed, affect is congruent and constricted. Suicidality/Homicidality: Patient denies having any homicidal ideation intent or plan. He admits to passive suicidal thoughts however no intent or plan. Perceptions: Patient denies any visual hallucinations and denies any auditory hallucinations Though content/process: Catastrophizing, rationalizing, Guarded. [place]. Memory and concentration: AOX3, grossly intact for the purposes of this session. Can spell "WORLD" backwards Judgment and insight: Chronically poor IMPRESSIONS: Depressive disorder unspecified Anxiety disorder unspecified Cannabis abuse History of stimulant abuse. PLAN: -At this time will continue to follow along as patient improves medically to see if patient will require inpatient psychiatric admission. -Would recommend the following medication changes/additions: Will restart Effexor XR 75 mg daily for mood/anxiety, lithium 300 mg daily at bedtime for mood adjunct, BuSpar 30 mg twice a day. We'll also start trazodone 50 mg daily at bedtime for insomniamood. -Continue 1:1 sitter for safety -Will continue to follow along -Please contact with any questions. 12/15/19 14:16 12/15/19 14:25
[2019-12-15 15:04] LABS: Glucose,Whole Blood 129 mg/dL (75-99)
[2019-12-15 16:27] LABS: Glucose,Whole Blood 120 mg/dL (75-99)
[2019-12-15] MEDS: VENLAFAXINE HCL ER 75 MG CAP PO SCH (16:43)
[2019-12-15 17:35] LABS: Glucose,Whole Blood 147 mg/dL (75-99)
[2019-12-15 18:32] LABS: Glucose,Whole Blood 199 mg/dL (75-99)
[2019-12-15 18:38] LABS: African American GFR (CKD) >90 (>60 ml/min/1.73 sqM); Anion Gap 10 mmol/L; Blood Urea Nitrogen 13 mg/dL (9-20); Carbon Dioxide 21 mmol/L (22-30); Chloride 106 mmol/L (98-107); Non-African American GFR(CKD) >90 (>60 ml/min/1.73 sqM); Phosphorus 2.6 mg/dL (2.5-4.5); Potassium 4.6 mmol/L (3.5-5.1); Sodium 137 mmol/L (137-145)
[2019-12-15 19:31] LABS: Glucose,Whole Blood 200 mg/dL (75-99)
[2019-12-15 20:33] LABS: Glucose,Whole Blood 226 mg/dL (75-99)
[2019-12-15 21:30] LABS: Glucose,Whole Blood 214 mg/dL (75-99)
[2019-12-15] MEDS: traZODone HCL 50 MG TAB PO SCH (22:05)
[2019-12-15] MEDS: LITHIUM CARBONATE 300 MG CAP PO SCH (22:05)
[2019-12-15] MEDS: busPIRone HCl 10 MG TAB PO SCH (22:05)
[2019-12-15 22:31] LABS: Glucose,Whole Blood 213 mg/dL (75-99)
[2019-12-15 22:49] LABS: African American GFR (CKD) >90 (>60 ml/min/1.73 sqM); Anion Gap 8 mmol/L; Blood Urea Nitrogen 10 mg/dL (9-20); Carbon Dioxide 22 mmol/L (22-30); Chloride 103 mmol/L (98-107); Non-African American GFR(CKD) >90 (>60 ml/min/1.73 sqM); Phosphorus 2.8 mg/dL (2.5-4.5); Potassium 4.1 mmol/L (3.5-5.1); Sodium 133 mmol/L (137-145)
[2019-12-15 23:29] LABS: Glucose,Whole Blood 151 mg/dL (75-99)
[2019-12-16] MEDS ORDERED: D5-0.45% NACL WITH KCL 20MEQ/L 1,000 ML IV SCH (00:30)
[2019-12-16 06:01] LABS: Glucose,Whole Blood 267 mg/dL (75-99)
[2019-12-16] MEDS: SODIUM CHLORIDE 0.9% 1,000 ML IV SCH ×2 (06:13→11:57)
[2019-12-16] MEDS: INSULIN ASPART (NovoLOG) 100 UNIT/ML VIAL SQ SCH ×5 (06:40→20:31)
[2019-12-16] MEDS: busPIRone HCl 10 MG TAB PO SCH ×2 (09:15→20:33)
[2019-12-16] MEDS: VENLAFAXINE HCL ER 75 MG CAP PO SCH (09:15)
[2019-12-16 12:00] LABS: Glucose,Whole Blood 324 mg/dL (75-99)
--- NOTE | 2019-12-16 13:16 | P.PN ---
Progress Note - Text Progress Note Date: 12/16/19 Interval History: Patient was seen today for psychiatric follow-up for depression. Patient was restarted on his home medications yesterday. Patient was seen at the bedside and was agreeable to speak to radio script writer. Patient claims that his mood has been improving with the medications. He states that the lithium has been helping with his suicidal thoughts and claims that he does not have any current suicidal thoughts at this time. He states that he is continuing to struggle with homelessness and direction in his life. He states that he does not know where he will go upon discharge from the hospital. Patient spoke about his trouble dealing with his guardian. He states that his previous penitentiary where he was at was a good fit for him until he got moved to another penitentiary which he says that he did not like. He states that he was able to sleep well last night and has a good appetite. He continues to complain of some weakness. Patient's insight and judgment have mildly been improving however remained superficial. At this time patient denies any suicidal or homical ideations, intent or plan. Patient denies any auditory, visual hallucinations and denies any paranoia or delusions. Patient denies any side effects from the medications and has been compliant with meds. Mental Status Exam: General Appearance: Patient appears to be stated age is alert, less guarded today and more cooperative. Patient appears to have improving hygiene and grooming. Behavior: Patient is laying in bed without any agitated behavior. Less guarded today. Remains superficial at times. Speech: Patient's speech is fluent and nonpressured. Mood/Affect: Patient reports their mood is "getting better", affect is congruent and constricted. Suicidality/Homicidality: Patient denies having any homicidal ideation intent or plan. He denies any suicidal ideations intent or plan at this time. Perceptions: Patient denies any visual hallucinations and denies any auditory hallucinations Though content/process: Superficial at times, Guarded. [place]. Memory and concentration: AOX3, grossly intact for the purposes of this session Judgment and insight: Chronically poor, mildly improving. Assessment Depressive disorder unspecified Anxiety disorder unspecified Cannabis abuse History of stimulant abuse. PLAN: -At this time the patient does NOT meet criteria for inpatient psychiatric hospitalization. -Would recommend the following medication changes/additions: Will increase Effexor XR 150 mg daily for mood/anxiety, lithium 300 mg daily at bedtime for mood adjunct, BuSpar 30 mg twice a day. Continue with trazodone 50 mg daily at bedtime for insomnia/mood. -One-to-one sitter can be discontinued at this time this patient is not endorsing any suicidal thoughts and no behavioral disturbances. -Knitting Demonstrator spoke with patient's nurse and social worker school to discuss plan. soaking tank worker to contact patient's guardian and [facility] case coordinator Concepc[place] to arrange for a suitable disposition and housing upon discharge from the hospital. Patient is at high risk for decompensation if he is not have adequate medications filled along with appropriate housing. -Please contact with any questions.
--- NOTE | 2019-12-16 13:20 | HP ---
HISTORY AND PHYSICAL DATE OF SERVICE: 12/15/2019 CHIEF COMPLAINT: Diabetic ketoacidosis and depression. HISTORY OF PRESENT ILLNESS: This is another admission for this 24-year-old white male who continually and repeatedly acts out. He recently was in a home where he was comfortable and did well. He liked the surroundings and the people. While there, his blood sugars were excellent and he did very well. He was moved to another facility where he now has more independence and has not been taking care of himself. He came back into the emergency room on the day of admission stating that he had stopped taking his insulin because he was suicidal and wanted to kill himself. REVIEW OF SYSTEMS: He has had excessive thirst and blurred vision with dizziness, but no other symptoms. He has had no chest pain, nausea, vomiting, melena, hematochezia, hematuria, etc. Past medical history, family history, personal and social histories are all otherwise unremarkable and unchanged from his recent frequent admitting and discharge summaries. He is not allergic to anything. MEDICATIONS: Gabapentin 600 mg twice a day, lithium 300 mg at night, Basaglar 40 units once a day, Admelog 10 units before meals, Seroquel 25 mg 1/2 tablet twice a day, cholestyramine 4 g 1 packet 3 times a day, BuSpar 30 mg twice a day, Effexor XR 150 mg once a day, trazodone 100 mg 2 at bedtime. He is a light tobacco user and nondrinker. PHYSICAL EXAMINATION: Blood pressure 110/70 with a pulse of 110, respirations of 40 and he is afebrile. In general, he appeared to be tall, slender, and dehydrated. He had a depressed affect. Head, ears, eyes, nose, mouth, and throat were normal except for dry mucous membranes. Neck is supple. Chest is clear. Cardiac exam is normal and the abdomen is soft and flat. Extremities are normal. Neurologically, he is intact. IMPRESSION: 1. DKA. 2. Major depression. 3. Personality disorder. 4. Dehydration. PLAN: 1. Bed rest. 2. IV fluids. 3. Treat his DKA. 4. Psych consult. MMBIANCA / TRAMN: [id number] /
[2019-12-16 17:01] LABS: Glucose,Whole Blood 277 mg/dL (75-99)
[2019-12-16] MEDS: DICYCLOMINE 20 MG TAB PO SCH ×2 (17:13→20:33)
[2019-12-16 20:29] LABS: Glucose,Whole Blood 295 mg/dL (75-99)
[2019-12-16] MEDS: CHOLESTYRAMINE (WITH SUGAR) 4 GM PACKET PO SCH (20:32)
[2019-12-16] MEDS: traZODone HCL 50 MG TAB PO SCH (20:33)
[2019-12-16] MEDS: GABAPENTIN 300 MG CAP PO SCH (20:33)
[2019-12-16] MEDS: LITHIUM CARBONATE 300 MG CAP PO SCH (20:33)
[2019-12-16] MEDS ORDERED: traZODone HCL 100 MG TAB PO SCH (21:00)
[2019-12-16] MEDS ORDERED: BUSPIRONE HCL 30 MG PO SCH (21:00)
[2019-12-16] MEDS ORDERED: LITHIUM CARBONATE 300 MG CAP PO SCH (21:00)
[2019-12-17 06:08] LABS: Glucose,Whole Blood 305 mg/dL (75-99)
[2019-12-17 06:41] LABS: Glucose,Whole Blood 310 mg/dL (75-99)
[2019-12-17] MEDS: DICYCLOMINE 20 MG TAB PO SCH ×2 (06:53→11:59)
[2019-12-17] MEDS: INSULIN ASPART (NovoLOG) 100 UNIT/ML VIAL SQ SCH ×4 (07:00→12:00)
[2019-12-17] MEDS ORDERED: INSULIN DETEMIR (LEVEMIR) 100 UNIT/ML SYR SQ SCH (07:00)
[2019-12-17] MEDS ORDERED: VENLAFAXINE HCL ER 150 MG CAP PO SCH (09:00)
[2019-12-17 09:22] VITALS: RESP 16
[2019-12-17] MEDS: busPIRone HCl 10 MG TAB PO SCH (09:23)
[2019-12-17] MEDS: CHOLESTYRAMINE (WITH SUGAR) 4 GM PACKET PO SCH (09:23)
[2019-12-17] MEDS: VENLAFAXINE HCL ER 75 MG CAP PO SCH (09:24)
[2019-12-17] MEDS: GABAPENTIN 300 MG CAP PO SCH (09:24)
[2019-12-17 12:05] LABS: Glucose,Whole Blood 234 mg/dL (75-99)
[2019-12-17 12:07] VITALS: BP 106/72; PULSE 124; TEMP 98.6
--- NOTE | 2019-12-18 15:17 | PN ---
PROGRESS NOTE DATE OF SERVICE: 12/16/2019. CHIEF COMPLAINT: DKA, depression, suicidal attempt. HISTORY OF PRESENT ILLNESS: This patient is doing better. Blood sugars are improving. He does state that he is suicidal and he is to be seen by Psychiatry. PHYSICAL EXAMINATION: Chest is clear and cardiac exam demonstrated sinus tachycardia. The abdomen is flat, soft, nontender. IMPRESSION: 1. Diabetic ketoacidosis. 2. Type 1 insulin-dependent diabetes mellitus with poor control due to noncompliance. 3. Major depression. PLAN: 1. Continue with IV fluids and management of his DKA. 2. Psychiatry referral. 3. Discharge planning. MMODL / IJN: [id number] /
--- NOTE | 2019-12-18 17:53 | DS ---
DISCHARGE SUMMARY CHIEF COMPLAINT: DKA and depression. HISTORY OF PRESENT ILLNESS AND PHYSICAL EXAMINATION: Details of this man's history and physical can be found in the initial workup. LABORATORY STUDIES: While he was in the hospital, he had laboratory studies, details of which can be found in the laboratory section of chart. COURSE IN THE HOSPITAL: After admission, he was placed on bedrest, started on intravenous fluids and IV insulin. Sugars came down and his anion gap was closed. He was seen by Psychiatry who felt he did not require inpatient treatment. He is prepared for discharge. He could not go back to the long-term where he came from, for some reason. His discharge plan is unsatisfactory, but the only 1 available. He will be going and staying with friends. FINAL DIAGNOSES: 1. Diabetic ketoacidosis. 2. Uncontrolled type 1 insulin-dependent diabetes mellitus. 3. Depression. 4. Personality disorder. OPERATIONS: None. CONSULTATIONS: Psychiatry. He is improved. MMSHANEL / TRAMN: [id number] /
== END 2019-12-17 16:25 | disposition home or self-care (01) ==
LOC: EC 07:34 → 3SCARD 09:01 → EEVIPCON 09:01 → 3SCARD 12:00
PROVIDERS: ADMIT Family Medicine; ATTEND Family Medicine
DX: E10.10 Type 1 diabetes mellitus with ketoacidosis without coma (principal); E10.43 Type 1 diabetes mellitus with diabetic autonomic (poly)neuropathy; E86.0 Dehydration; F12.10 Cannabis abuse, uncomplicated; F17.200 Nicotine dependence, unspecified, uncomplicated; F32.9 Major depressive disorder, single episode, unspecified; F41.9 Anxiety disorder, unspecified; F60.9 Personality disorder, unspecified; J45.909 Unspecified asthma, uncomplicated; K31.84 Gastroparesis; Z91.5 Personal history of self-harm; Z59.0 Homelessness; Z79.4 Long term (current) use of insulin; Z82.49 Family history of ischemic heart disease and other diseases of the circulatory system; Z91.14 Patient's other noncompliance with medication regimen; Z91.19 Patient's noncompliance with other medical treatment and regimen; Z79.899 Other long term (current) drug therapy; Z82.3 Family history of stroke
CPT/HCPCS: 96366 ×3; 82075; 96361; 96365; 99285; 36415; 93005; 80051; 80053; 82150; 82565; 82009; 83690; 84100; 84520; 84484; 85025; 81003; 80306; 71046; G0378 ×3; G0480; U0003; 80320

== ENCOUNTER 2019-12-30 01:03 | Observation (INO) | payer OTHER ==
[2019-12-30 01:14] LABS: Glucose,Whole Blood 558 mg/dL (75-99)
[2019-12-30] MEDS ORDERED: SODIUM CHLORIDE 0.9% 500 ML 500 ML IV ONE (01:25)
[2019-12-30 01:29] LABS: Basophils # (A) 0.1 k/uL (0-0.2); Basophils % (A) 1 %; Eosinophils # (A) 0.6 k/uL (0-0.7); Eosinophils % (A) 6 %; HCT 48.9 % (39.0-53.0); Lymphocytes # (A) 2.8 k/uL (1.0-4.8); Lymphocytes % (A) 27 %; MCH 29.9 pg (25.0-35.0); MCHC 32.8 g/dL (31.0-37.0); MCV 91.2 fL (80.0-100.0); Mean Platelet Volume 7.7; Monocytes # (A) 0.6 k/uL (0-1.0); Monocytes % (A) 6 %; Neutrophils % (A) 58 %; Platelet Count 256 k/uL (150-450); RBC 5.36 m/uL (4.30-5.90); RDW 12.3 % (11.5-15.5); WBC 10.3 k/uL (3.8-10.6)
[2019-12-30 01:37] LABS: ALT 12 U/L (4-49); AST 12 U/L (17-59); African American GFR (CKD) >90 (>60 ml/min/1.73 sqM); Albumin 4.5 g/dL (3.5-5.0); Alkaline Phosphatase 120 U/L (38-126); Anion Gap 19 mmol/L; Blood Urea Nitrogen 10 mg/dL (9-20); Calcium 9.2 mg/dL (8.4-10.2); Carbon Dioxide 20 mmol/L (22-30); Chloride 95 mmol/L (98-107); Non-African American GFR(CKD) >90 (>60 ml/min/1.73 sqM); Sodium 134 mmol/L (137-145); Total Bilirubin 0.5 mg/dL (0.2-1.3); Total Protein 6.8 g/dL (6.3-8.2)
[2019-12-30] MEDS ORDERED: SODIUM CHLORIDE 0.9% 1,000 ML IV ONE (01:41)
[2019-12-30 01:43] LABS: Glucose 570 mg/dL (74-99)
[2019-12-30] MEDS ORDERED: Potassium Replacement Protocol 1 EACH MISC MISCELLANE PRN (02:02)
[2019-12-30] MEDS ORDERED: Magnesium Replacement Protocol 1 EACH MISC MISCELLANE PRN (02:02)
[2019-12-30] MEDS ORDERED: INSULIN REGULAR BOLUS (FROM DRIP BAG) IV ONE (02:02)
--- NOTE | 2019-12-30 02:07 | XR ---
EXAMINATION TYPE: XR chest 2V DATE OF EXAM: 12/30/2019 COMPARISON: 12/15/2019 HISTORY: Abdominal pain TECHNIQUE: 2 views FINDINGS: Heart and mediastinum are normal. Lungs are clear. Diaphragm is normal. Bony thorax is inta ct. Pulmonary vascularity is normal. IMPRESSION: Normal chest. No change.
[2019-12-30 02:14] LABS: Glucose,Whole Blood 490 mg/dL (75-99)
[2019-12-30] MEDS ORDERED: INSULIN REGULAR 100 UNIT in SODIUM CHLORIDE 0.9% 100 ML IV SCH (02:15)
--- NOTE | 2019-12-30 02:20 | ED ---
General Adult HPI - General Source: patient, EMS, RN notes reviewed, old records reviewed Mode of arrival: EMS Limitations: no limitations <Azar Self - Last Filed: 12/30/19 02:44> <Shai Anaya - Last Filed: 01/01/20 06:47> - General Chief complaint: Shortness of Breath Stated complaint: cough Time Seen by Provider: 12/30/19 01:07 - History of Present Illness Initial comments: 24-year-old male patient history of type 1 diabetes presents ED chief complaint of cough for the last 2 weeks. Patient reports that he has had some shortness of breath after coughing. Denies any this time. Patient also reports that he has not been monitoring his blood sugar or properly dosing his insulin for the last few days. Denies any other acute complaints. Systemic: Pt denies fatigue, fever/chills, rash. Pt denies weakness, night sweats, weight loss. Neuro: Pt denies headache, visual disturbances, syncope or pre-syncope. HEENT: Pt denies ocular discharge or irritation, otalgia, rhinorrhea, pharyngitis or notable lymphadenopathy. Cardiopulmonary: Pt denies chest pain, SOB, heart palpitations, dyspnea on exer tion. Abdominal/GI: Pt denies abdominal pain, n/v/d. : Pt denies dysuria, burning w/ urination, frequency/urgency. Denies new onset urinary or bowel incontinence. MSK: Pt denies myalgia, loss of strength or function in extremities. Neuro: Pt denies new onset weakness, paresthesias. (Azar Self) - Related Data Home Medications Medication Instructions Recorded Confirmed Insulin Glargine,Hum.rec.anlog 40 units SQ DAILY 09/01/19 12/30/19 [Basaglar Kwikpen U-100] Insulin Lispro [Admelog] 10 units SQ AC-TID 09/01/19 12/30/19 Venlafaxine HCl [Effexor XR] 150 mg PO DAILY 09/01/19 12/30/19 Cholestyramine (with Sugar) 4 gm PO TID 12/04/19 12/30/19 [Questran Packet] Dicyclomine [Bentyl] 20 mg PO ACHS 12/04/19 12/30/19 Howard Carbonate 300 mg PO HS 12/04/19 12/30/19 busPIRone HCL [Buspar] 30 mg PO BID 12/04/19 12/30/19 Insulin Lispro [Admelog] 6 units SQ HS 12/15/19 12/30/19 Previous Rx's Medication Instructions Recorded Gabapentin [Neurontin] 600 mg PO BID 30 Days cap 09/01/19 traZODone HCL [Desyrel] 200 mg PO HS 30 Days tab 09/01/19 Allergies Allergy/AdvReac Type Severity Reaction Status Date / Time No Known Allergies Allergy Verified 12/30/19 08:12 Review of Systems ROS Other: All systems not noted in ROS Statement are negative. <Azar Self - Last Filed: 12/30/19 02:44> ROS Other: All systems not noted in ROS Statement are negative. <Shai Anaya - Last Filed: 01/01/20 06:47> ROS Statement: Those systems with pertinent positive or pertinent negative responses have been documented in the HPI. Past Medical History Past Medical History: Asthma, Diabetes Mellitus, Skin Disorder Additional Past Medical History / Comment(s): IDDM type I, neuropathy bilateral feet, DKAs, gastroparesis, eczema. History of Any Multi-Drug Resistant Organisms: None Reported Past Surgical History: Adenoidectomy Additional Past Surgical History / Comment(s): 2002 Past Anesthesia/Blood Transfusion Reactions: No Reported Reaction Past Psychological History: Anxiety, Depression Smoking Status: Current some day smoker Past Alcohol Use History: None Reported Past Drug Use History: Marijuana - Past Family History Mother Family Medical History: CVA/TIA Father Family Medical History: Hyperlipidemia, Hypertension Additional Family Medical History / Comment(s): . <Azar Self - Last Filed: 12/30/19 02:44> General Exam Limitations: no limitations <Azar Self - Last Filed: 12/30/19 02:44> - General Exam Comments Initial Comments: Constitutional: NAD, AOX3, Pt has pleasant affect. HEENT: NC/AT, trachea midline, neck supple, no lymphadenopathy. Posterior pharynx non erythematous, without exudates. External ears appear normal, without discharge. Mucous membranes moist. Eyes PERRLA, EOM intact. There is no scleral icterus. No pallor noted. Cardiopulmonary: RRR, no murmurs, rubs or gallops, no JVD noted. Lungs CTAB in anterior and posterior brady. No peripheral edema. Abdominal exam: Abdomen soft and non-distended. Abdomen non-tender to palpation in all 4 quadrants. Bowel sounds active in LLQ. No hepatosplenomegaly. No ecchymosis Neuro: CN II-XII grossly intact. No nuchal rigidity. No raccon eyes, no barrett sign, no hemotympanum. No cervical spinal tenderness. MSK: Full active ROM in upper and lower extremities, 5/5 stregnth. (Azar Self) Course Vital Signs 12/30/19 12/30/19 12/30/19 01:04 01:09 02:44 Temperature 98.1 F 97.7 F Pulse Rate 111 H 91 Respiratory 16 16 16 Rate Blood Pressure 132/88 121/69 O2 Sat by Pulse 99 97 Oximetry Medical Decision Making - Lab Data Result diagrams: 12/30/19 01:17 12/30/19 01:17 - EKG Data -: EKG Interpreted by Me (and Dr. Rdz ) <Azar Self - Last Filed: 12/30/19 02:44> - Lab Data Result diagrams: 12/30/19 01:17 12/30/19 08:25 <Shai Anaya - Last Filed: 01/01/20 06:47> - Medical Decision Making 24-year-old male patient history type 1 diabetes and CAD cough for last 2 weeks. Patient will signs. Tachycardia 111. Physical exam did not display acute pathology. Laboratory investigations are significant for diabetic ketoacidosis. Chest x-ray negative for acute process. Patient will be admitted for further evaluation. Case discussed with Dr. Rdz. (Azar Self) I saw this patient in conjunction with the physician welder assistant. I performed independent history and physical exam. Agree with case management. (Shai Anaya) - Lab Data Lab Results 12/30/19 12/30/19 12/30/19 Range/Units 01:12 01:17 01:17 WBC 10.3 (3.8-10.6) k/uL RBC 5.36 (4.30-5.90) m/uL Hgb 16.0 (13.0-17.5) gm/dL Hct 48.9 (39.0-53.0) % MCV 91.2 (80.0-100.0) fL MCH 29.9 (25.0-35.0) pg MCHC 32.8 (31.0-37.0) g/dL RDW 12.3 (11.5-15.5) % Plt Count 256 (150-450) k/uL Neutrophils % 58 % Lymphocytes % 27 % Monocytes % 6 % Eosinophils % 6 % Basophils % 1 % Neutrophils # 6.0 (1.3-7.7) k/uL Lymphocytes # 2.8 (1.0-4.8) k/uL Monocytes # 0.6 (0-1.0) k/uL Eosinophils # 0.6 (0-0.7) k/uL Basophils # 0.1 (0-0.2) k/uL Sodium 134 L (137-145) mmol/L Potassium 4.0 (3.5-5.1) mmol/L Chloride 95 L (98-107) mmol/L Carbon Dioxide 20 L (22-30) mmol/L Anion Gap 19 mmol/L BUN 10 (9-20) mg/dL Creatinine 0.70 (0.66-1.25) mg/dL Est GFR (CKD-EPI)AfAm >90 (>60 ml/min/1.73 sqM) Est GFR (CKD-EPI)NonAf >90 (>60 ml/min/1.73 sqM) Glucose 570 H* (74-99) mg/dL POC Glucose (mg/dL) 558 H (75-99) mg/dL POC Glu Plant And Maintenance Technician ID Estrada, Estella Plasma Lactic Acid Len (0.7-2.0) mmol/L Calcium 9.2 (8.4-10.2) mg/dL Magnesium 1.9 (1.6-2.3) mg/dL Total Bilirubin 0.5 (0.2-1.3) mg/dL AST 12 L (17-59) U/L ALT 12 (4-49) U/L Alkaline Phosphatase 120 (38-126) U/L NT-Pro-B Natriuret Pep pg/mL Total Protein 6.8 (6.3-8.2) g/dL Albumin 4.5 (3.5-5.0) g/dL Acetone, Qual Positive (Negative) Coronavirus (PCR) (Not Detected) 12/30/19 12/30/1912/29/20 Range/Units 01:17 01:17 01:17 WBC (3.8-10.6) k/uL RBC (4.30-5.90) m/uL Hgb (13.0-17.5) gm/dL Hct (39.0-53.0) % MCV (80.0-100.0) fL MCH (25.0-35.0) pg MCHC (31.0-37.0) g/dL RDW (11.5-15.5) % Plt Count (150-450) k/uL Neutrophils % % Lymphocytes % % Monocytes % % Eosinophils % % Basophils % % Neutrophils # (1.3-7.7) k/uL Lymphocytes # (1.0-4.8) k/uL Monocytes # (0-1.0) k/uL Eosinophils # (0-0.7) k/uL Basophils # (0-0.2) k/uL Sodium (137-145) mmol/L Potassium (3.5-5.1) mmol/L Chloride (98-107) mmol/L Carbon Dioxide (22-30) mmol/L Anion Gap mmol/L BUN (9-20) mg/dL Creatinine (0.66-1.25) mg/dL Est GFR (CKD-EPI)AfAm (>60 ml/min/1.73 sqM) Est GFR (CKD-EPI)NonAf (>60 ml/min/1.73 sqM) Glucose (74-99) mg/dL POC Glucose (mg/dL) (75-99) mg/dL POC Glu Plant And Maintenance Technician ID Plasma Lactic Acid Len 1.0 (0.7-2.0) mmol/L Calcium (8.4-10.2) mg/dL Magnesium (1.6-2.3) mg/dL Total Bilirubin (0.2-1.3) mg/dL AST (17-59) U/L ALT (4-49) U/L Alkaline Phosphatase (38-126) U/L NT-Pro-B Natriuret Pep 19 pg/mL Total Protein (6.3-8.2) g/dL Albumin (3.5-5.0) g/dL Acetone, Qual (Negative) Coronavirus (PCR) Not Detected (Not Detected) 08/06/20 Range/Units 02:12 WBC (3.8-10.6) k/uL RBC (4.30-5.90) m/uL Hgb (13.0-17.5) gm/dL Hct (39.0-53.0) % MCV (80.0-100.0) fL MCH (25.0-35.0) pg MCHC (31.0-37.0) g/dL RDW (11.5-15.5) % Plt Count (150-450) k/uL Neutrophils % % Lymphocytes % % Monocytes % % Eosinophils % % Basophils % % Neutrophils # (1.3-7.7) k/uL Lymphocytes # (1.0-4.8) k/uL Monocytes # (0-1.0) k/uL Eosinophils # (0-0.7) k/uL Basophils # (0-0.2) k/uL Sodium (137-145) mmol/L Potassium (3.5-5.1) mmol/L Chloride (98-107) mmol/L Carbon Dioxide (22-30) mmol/L Anion Gap mmol/L BUN (9-20) mg/dL Creatinine (0.66-1.25) mg/dL Est GFR (CKD-EPI)AfAm (>60 ml/min/1.73 sqM) Est GFR (CKD-EPI)NonAf (>60 ml/min/1.73 sqM) Glucose (74-99) mg/dL POC Glucose (mg/dL) 490 H (75-99) mg/dL POC Glu Plant And Maintenance Technician ID Johny Mcdonnell Plasma Lactic Acid Len (0.7-2.0) mmol/L Calcium (8.4-10.2) mg/dL Magnesium (1.6-2.3) mg/dL Total Bilirubin (0.2-1.3) mg/dL AST (17-59) U/L ALT (4-49) U/L Alkaline Phosphatase (38-126) U/L NT-Pro-B Natriuret Pep pg/mL Total Protein (6.3-8.2) g/dL Albumin (3.5-5.0) g/dL Acetone, Qual (Negative) Coronavirus (PCR) (Not Detected) - EKG Data EKG Comments: Ventricular rate 90. Full 162, QRS 106, QT/QTc 408/499. No sinus rhythm, normal EKG, no concern for acute ischemia or arrhythmia at this time. (Azar Self) Disposition Is patient prescribed a controlled substance at d/c from ED?: No <Azar Self - Last Filed: 12/30/19 02:44> <Shai Anaya - Last Filed: 01/01/20 06:47> Clinical Impression: Cough, DKA (diabetic ketoacidoses) Disposition: ADMITTED IP TO THIS HOSP Condition: Serious
[2019-12-30] MEDS: SODIUM CHLORIDE 0.9% 1,000 ML IV SCH ×2 (02:23→07:17)
[2019-12-30 02:29] LABS: Magnesium 1.9 mg/dL (1.6-2.3)
[2019-12-30 03:12] LABS: Glucose,Whole Blood 323 mg/dL (75-99)
[2019-12-30 04:02] LABS: Glucose,Whole Blood 277 mg/dL (75-99)
[2019-12-30] MEDS: D5-0.45% NACL WITH KCL 20MEQ/L 1,000 ML IV SCH ×3 (04:30→23:05)
[2019-12-30 05:00] LABS: Glucose,Whole Blood 250 mg/dL (75-99)
[2019-12-30 05:03] LABS: African American GFR (CKD) >90 (>60 ml/min/1.73 sqM); Anion Gap 10 mmol/L; Blood Urea Nitrogen 10 mg/dL (9-20); Carbon Dioxide 21 mmol/L (22-30); Chloride 104 mmol/L (98-107); Glucose 266 mg/dL (74-99); Non-African American GFR(CKD) >90 (>60 ml/min/1.73 sqM); Phosphorus 2.5 mg/dL (2.5-4.5); Potassium 3.1 mmol/L (3.5-5.1); Sodium 135 mmol/L (137-145)
[2019-12-30 05:59] LABS: Glucose,Whole Blood 214 mg/dL (75-99)
[2019-12-30 07:05] LABS: Glucose,Whole Blood 167 mg/dL (75-99)
[2019-12-30 08:01] LABS: Glucose,Whole Blood 140 mg/dL (75-99)
[2019-12-30 08:50] LABS: African American GFR (CKD) >90 (>60 ml/min/1.73 sqM); Anion Gap 7 mmol/L; Blood Urea Nitrogen 10 mg/dL (9-20); Carbon Dioxide 25 mmol/L (22-30); Chloride 105 mmol/L (98-107); Glucose 120 mg/dL (74-99); Non-African American GFR(CKD) >90 (>60 ml/min/1.73 sqM); Phosphorus 2.7 mg/dL (2.5-4.5); Potassium 3.6 mmol/L (3.5-5.1); Sodium 137 mmol/L (137-145)
[2019-12-30 08:55] LABS: Glucose,Whole Blood 206 mg/dL (75-99)
[2019-12-30 09:58] LABS: Glucose,Whole Blood 280 mg/dL (75-99)
[2019-12-30 11:08] VITALS: BMI 20.7
[2019-12-30 11:16] LABS: Appearance,Urine Clear (Clear); Bilirubin,Urine Negative (Negative); Blood,Urine Negative (Negative); Color,Urine Yellow; Glucose,Urine (UA) 4+ (Negative); Leukocyte Esterase,Urine Negative (Negative); Nitrite,Urine Negative (Negative); PH, Urine 5.5 (5.0-8.0); Protein,Urine Trace (Negative); Specific Gravity,Urine 1.026 (1.001-1.035); Urobilinogen,Urine <2.0 mg/dL (<2.0)
[2019-12-30 11:20] LABS: Ketones,Urine 2+ (Negative)
[2019-12-30 11:27] LABS: Amphetamine Screen,Urine Not Detected (NotDetected); Barbiturate Screen,Urine Not Detected (NotDetected); Benzodiazepines Screen,Urine Not Detected (NotDetected); Cocaine Screen,Urine Not Detected (NotDetected); Methadone Screen, Urine Not Detected (NotDetected); Opiate Screen,Urine Not Detected (NotDetected); Oxycodone Screen, Urine Not Detected (NotDetected); Phencyclidine Screen,Urine Not Detected (NotDetected); Tricyclic Antidepressant,Urine Not Detected (NotDetected); Urn Cannabinoid Scrn Detected (NotDetected)
[2019-12-30 11:54] LABS: Glucose,Whole Blood 309 mg/dL (75-99)
[2019-12-30] MEDS: methylPREDNISolone SOD SUCCI 40 MG/ML 1 ML VIAL IV SCH ×2 (11:55→14:50)
[2019-12-30] MEDS: VENLAFAXINE HCL ER 150 MG CAP PO SCH (11:55)
[2019-12-30] MEDS: INSULIN ASPART (NovoLOG) 100 UNIT/ML VIAL SQ SCH ×2 (11:56→18:13)
[2019-12-30] MEDS: INSULIN DETEMIR (LEVEMIR) 100 UNIT/ML SYR SQ SCH (11:56)
[2019-12-30] MEDS: DICYCLOMINE 20 MG TAB PO SCH ×3 (11:56→21:06)
[2019-12-30] MEDS ORDERED: IPRATROPIUM-ALBUTEROL 3 ML NEB INHALATION SCH (12:00)
[2019-12-30] MEDS: ALBUTEROL HFA INHALER INHALATION SCH ×3 (12:11→19:25)
--- NOTE | 2019-12-30 14:28 | P.CNPUL ---
History of Present Illness Consult date: 12/30/19 Reason for consult: dyspnea History of present illness: 10-year-old male patient, history of childhood asthma who has been on no maintenance medication as the patient reports that his asthma has been essentially stable. He smokes marijuana and tobacco cigarettes occasionally. He is coming into the hospital because of worsening shortness of breath cough and congestion and wheezing is been going on for the past 2 weeks. Chest x-ray is negative for any acute pulmonary infiltrates. He is afebrile. Denies exposure to any coronavirus Covid 19 infection. No fever. No loss in the taste or smell. No nausea vomiting or diarrhea. Was a causative 10.3. Lymphocyte count is 27% without any significant thrombocytopenia. Nasal swab for Covid 19 has been done and the results are still pending for now. For the time of his admission, the blood sugar was quite elevated and the patient had a component of mild anion gap metabolic acidosis which was at 19 and the gap dropped down to 7. The patient is currently on Levemir insulin 40 units daily along with vascular coverage in addition to NovoLog 10 units with meal. He was started on IV Solu- Medrol. He was started also on albuterol nebulized treatments 4 times a day [id number] and Symbicort as maintenance 2 puffs twice a day. Note that he hasn't been taking any form of maintenance.. No other complaints otherwise. No previous hospitalization for any respiratory attacks or respiratory failure. No sore throat. No sinus infections. No reported environmental ALLERGIES. Review of Systems Constitutional: Denies chills, Denies fever Eyes: denies as per HPI, denies blurred vision, denies bulging eye, denies de creased vision, denies diplopia, denies discharge, denies dry eye, denies irritation, denies itching, denies pain, denies photophobia, denies loss of peripheral vision, denies loss of vision, denies tunnel vision/blind spots Ears: deny: decreased hearing, ear discharge, earache, tinnitus Ears, nose, mouth and throat: Denies headache, Denies sore throat Breasts: absent: as per HPI, gynecomastia Cardiovascular: Reports as per HPI, Reports shortness of breath Respiratory: Reports cough, Reports dyspnea, Reports wheezing Gastrointestinal: Reports as per HPI Genitourinary: Reports as per HPI Musculoskeletal: Reports as per HPI Musculoskeletal: absent: ankle pain, ankle stiffness, ankle swelling Integumentary: Reports as per HPI Neurological: Reports as per HPI Psychiatric: Reports as per HPI, Reports anxiety, Reports depression Endocrine: Reports high blood sugars, Reports polyuria Hematologic/Lymphatic: Reports as per HPI Allergic/Immunologic: Reports as per HPI Past Medical History Past Medical History: Asthma, Diabetes Mellitus, Skin Disorder Additional Past Medical History / Comment(s): IDDM type I, neuropathy bilateral feet, DKAs, gastroparesis, eczema. History of Any Multi-Drug Resistant Organisms: None Reported Past Surgical History: Adenoidectomy Additional Past Surgical History / Comment(s): 2002 Past Anesthesia/Blood Transfusion Reactions: No Reported Reaction Past Psychological History: Anxiety, Depression Additional Psychological History / Comment(s): Pt states he is currently h omeless. He states he can get rides to appointments. Pt states he has access to diabetic supplies. Smoking Status: Current some day smoker Past Alcohol Use History: None Reported Additional Past Alcohol Use History / Comment(s): Started smoking at age 15, quit age 19. Past Drug Use History: Marijuana Additional Drug Use History / Comment(s): Occasional - Past Family History Mother Family Medical History: CVA/TIA Father Family Medical History: Hyperlipidemia, Hypertension Additional Family Medical History / Comment(s): . Medications and Allergies Home Medications Medication Instructions Recorded Confirmed Type Gabapentin [Neurontin] 600 mg PO BID 30 Days cap 09/01/19 12/30/19 Rx Insulin Glargine,Hum.rec.anlog 40 units SQ DAILY 09/01/19 12/30/19 History [Brianna Lorenzo U-100] Insulin Lispro [Admelog] 10 units SQ AC-TID 09/01/19 12/30/19 History Venlafaxine HCl [Effexor XR] 150 mg PO DAILY 09/01/19 12/30/19 History traZODone HCL [Desyrel] 200 mg PO HS 30 Days tab 09/01/19 12/30/19 Rx Cholestyramine (with Sugar) 4 gm PO TID 12/04/19 12/30/19 History [Questran Packet] Dicyclomine [Bentyl] 20 mg PO ACHS 12/04/19 12/30/19 History Hughson Carbonate 300 mg PO HS 12/04/19 12/30/19 History busPIRone HCL [Buspar] 30 mg PO BID 12/04/19 12/30/19 History Insulin Lispro [Admelog] 6 units SQ HS 12/15/19 12/30/19 History Allergies Allergy/AdvReac Type Severity Reaction Status Date / Time No Known Allergies Allergy Verified 12/30/19 08:12 Physical Exam Vitals: Vital Signs Temp Pulse Pulse Resp BP BP Pulse Ox 12/30/19 03:00 97.6 F 95 17 115/72 97 12/30/19 02:44 97.7 F 91 16 121/69 97 12/30/19 01:09 16 12/30/19 01:04 98.1 F 111 H 16 132/88 99 Intake and Output 12/29/19 12/30/19 12/30/19 22:59 06:59 14:59 Intake Total 12.752 758.679 Balance 12.752 758.679 Intake: Intake, IV Titration 12.752 38.679 Amount Insulin Regular 100 unit 12.752 38.679 In Sodium Chloride 0.9% 100 ml @ 0.1 UNITS/KG/HR 7.101 mls/hr IV .[id number] [facility] Rx#:[id number] Oral 0 720 Other: # Voids 2 Weight 75.1 kg 75.1 kg The patient appeared well nourished and normally developed. Vital signs as documented. Head exam is unremarkable. No scleral icterus or corneal arcus noted. Neck is without jugular venous distension, thyromegaly, or carotid bruits. Carotid upstrokes are brisk bilaterally. Lungs diminished breath sound bilaterally along with scattered expiratory wheezes throughout the lung brady. Cardiac exam reveals the PMI to be normally sized and situated. Rhythm is regular. First and second heart sounds normal. No murmurs, rubs or gallops. Abdo emmanuel exam reveals normal bowel sounds, no masses, no organomegaly and no aortic enlargement. Extremities are nonedematous and both femoral and pedal pulses are normal.Examination of the skin revealed no evidence of significant rashes, suspicious appearing nevi or other concerning lesions.Neurologically, the patient is awake and alert and the patient does not have any focal neurological deficit. Cranial nerves are essentially intact. Results - Laboratory Findings CBC and BMP: 12/30/19 01:17 12/30/19 08:25 PT/INR, D-dimer D-Dimer <0.17 mg/L FEU (<0.60) 12/30/19 08:25 Abnormal lab findings: Abnormal Labs 12/30/19 12/30/19 12/30/19 01:12 01:17 02:12 Sodium 134 L Potassium Chloride 95 L Carbon Dioxide 20 L Creatinine Glucose 570 H* POC Glucose (mg/dL) 558 H 490 H AST 12 L Urine Protein Urine Glucose (UA) Urine Ketones U Marijuana (THC) Screen 12/30/19 12/30/19 12/30/19 03:10 04:00 04:22 Sodium 135 L Potassium 3.1 L Chloride Carbon Dioxide 21 L Creatinine 0.48 L Glucose 266 H POC Glucose (mg/dL) 323 H 277 H AST Urine Protein Urine Glucose (UA) Urine Ketones U Marijuana (THC) Screen 12/30/19 12/30/19 12/30/19 04:58 05:57 07:04 Sodium Potassium Chloride Carbon Dioxide Creatinine Glucose POC Glucose (mg/dL) 250 H 214 H 167 H AST Urine Protein Urine Glucose (UA) Urine Ketones U Marijuana (THC) Screen 12/30/19 12/30/19 12/30/19 07:59 08:25 08:53 Sodium Potassium Chloride Carbon Dioxide Creatinine 0.47 L Glucose 120 H POC Glucose (mg/dL) 140 H 206 H AST Urine Protein Urine Glucose (UA) Urine Ketones U Marijuana (THC) Screen 12/30/19 12/30/19 12/30/19 09:57 10:55 11:53 Sodium Potassium Chloride Carbon Dioxide Creatinine Glucose POC Glucose (mg/dL) 280 H 309 H AST Urine Protein Trace H Urine Glucose (UA) 4+ H Urine Ketones 2+ H U Marijuana (THC) Screen Detected H - Diagnostic Findings Chest x-ray: image reviewed Assessment and Plan Plan: 1 acute exacerbation of chronic intermittent mild bronchial asthma, rule out u nderlying tracheal bronchitis 2 shortness of breath secondary to above 3 diabetes mellitus type 1 4 DKA, mild anion gap metabolic acidosis which recovered. 5 multiple episodes of the care in the past 6 history of depression 7 history of anxiety 8 history of marijuana use and history of stimulant use. Plan Agree on the current treatment Continued IV Solu Medrol and use insulin drip if needed especially of the blood sugar goes out of control Continue Symbicort Continue albuterol about she miscarriage [id number] Add Zithromax to 50 mg by mouth daily Coronavirus Covid 19 nasal swab pending
[2019-12-30 15:01] LABS: Glucose,Whole Blood 267 mg/dL (75-99)
[2019-12-30] MEDS: ONDANSETRON 4 MG/2 ML VIAL IVP PRN ×2 (16:00→21:06)
[2019-12-30 16:48] LABS: Glucose,Whole Blood 224 mg/dL (75-99)
--- NOTE | 2019-12-30 18:29 | HP ---
HISTORY AND PHYSICAL CHIEF COMPLAINT: DKA and shortness of breath. HISTORY OF PRESENT ILLNESS: This is another admission for this 24-year-old white male. Apparently he was visiting some friends, vaping, and then stop taking his insulin, which is usual for him. He came to the emergency room in [facility] with a blood sugar over 400. He was also pretty short of breath. He has had no chest pain, fever, chills, sputum production, hemoptysis, , myalgias, etc. REVIEW OF SYSTEMS: He has had no other complaints. He has had no nausea, vomiting, hematemesis, diarrhea, etc. Past medical history, family history, and personal and social histories are all otherwise unremarkable and unchanged from his recent discharge summary. PHYSICAL EXAMINATION: Blood pressure is 120/86 with a pulse of 125, respirations of 33. He is afebrile. In general, he appeared to be slightly dehydrated. Head, ears, eyes, nose, mouth and throat were normal and neck veins were not distended. The chest was clear. Cardiac exam demonstrated sinus tachycardia and the abdomen was flat, soft and nontender. Extremities were normal. Neurologically he was intact. He did seem to be short of breath. He has been admitted to the hospital with the diagnoses: 1. Diabetic ketoacidosis. 2. Noncompliant type 1 insulin-dependent diabetic. 3. Shortness of breath. 4. Depression. 5. Personality disorder. PLAN: 1. Bed rest. 2. IV fluids. 3. Insulin drip. 4. DKA protocol. 5. Chest x-ray, D-dimer. 6. Updrafts. 7. Solu-Medrol IV. 8. Pulmonology consult. MMODL / IJN: [id number] /
[2019-12-30] MEDS: SYMBICORT 160-4.5 MCG INHALER INHALATION SCH (19:24)
[2019-12-30 20:51] LABS: Glucose,Whole Blood 203 mg/dL (75-99)
[2019-12-30] MEDS: traZODone HCL 100 MG TAB PO SCH (21:02)
[2019-12-30] MEDS: busPIRone HCl 10 MG TAB PO SCH (21:03)
[2019-12-30] MEDS: GABAPENTIN 300 MG CAP PO SCH (21:03)
[2019-12-30] MEDS: CHOLESTYRAMINE (WITH SUGAR) 4 GM PACKET PO SCH ×2 (21:03→21:40)
[2019-12-30] MEDS: LITHIUM CARBONATE 300 MG CAP PO SCH (21:03)
[2019-12-30] MEDS: AZITHROMYCIN 250 MG TAB PO SCH (21:06)
[2019-12-31] MEDS: methylPREDNISolone SOD SUCCI 40 MG/ML 1 ML VIAL IV SCH ×3 (00:36→17:12)
[2019-12-31 06:57] LABS: Glucose,Whole Blood 201 mg/dL (75-99)
[2019-12-31] MEDS: ALBUTEROL HFA INHALER INHALATION SCH ×4 (08:39→20:34)
[2019-12-31] MEDS: SYMBICORT 160-4.5 MCG INHALER INHALATION SCH ×3 (08:39→20:34)
[2019-12-31] MEDS: busPIRone HCl 10 MG TAB PO SCH ×2 (08:52→20:44)
[2019-12-31] MEDS: VENLAFAXINE HCL ER 150 MG CAP PO SCH (08:52)
[2019-12-31] MEDS: DICYCLOMINE 20 MG TAB PO SCH ×4 (08:52→20:44)
[2019-12-31] MEDS: GABAPENTIN 300 MG CAP PO SCH ×2 (08:52→20:44)
[2019-12-31] MEDS: AZITHROMYCIN 250 MG TAB PO SCH (08:52)
[2019-12-31] MEDS: INSULIN DETEMIR (LEVEMIR) 100 UNIT/ML SYR SQ SCH (08:53)
[2019-12-31] MEDS: INSULIN ASPART (NovoLOG) 100 UNIT/ML VIAL SQ SCH ×4 (08:53→17:36)
[2019-12-31] MEDS: CHOLESTYRAMINE (WITH SUGAR) 4 GM PACKET PO SCH ×3 (08:53→21:05)
[2019-12-31] MEDS: D5-0.45% NACL WITH KCL 20MEQ/L 1,000 ML IV SCH ×2 (09:01→17:36)
[2019-12-31 10:49] LABS: Amylase 41 U/L (30-110); Lipase 27 U/L (23-300)
[2019-12-31 12:01] LABS: Glucose,Whole Blood 201 mg/dL (75-99)
[2019-12-31] MEDS: ONDANSETRON 4 MG/2 ML VIAL IVP PRN (12:14)
--- NOTE | 2019-12-31 13:23 | P.PN ---
Subjective Progress Note Date: 12/31/19 12/31/2019, the patient is feeling improvement in his cough with less congestion and less cough compared to yesterday. He is on bronchodilators and the patient is on DuoNeb neb last treatment [id number]. He is on Symbicort his on IV Solu Medrol. He did have some nausea overnight and is currently taking clear liquid diet. He received Zofran for nausea. No abdominal pain. No tenderness. He is having flatness without any bowel movements. The blood sugar from this morning is 201. Amylase and lipase was checked and was within normal limits. No fever. No chills. The COVID 19 evaluation still pending for now. Patient is on oral Zithromax to 50 mg by mouth daily. There is an empiric antibiotic coverage. The rest of the outpatient indication of been ordered resume. Objective - Vital Signs Vital signs: Vital Signs Temp 97.7 F 12/31/19 08:00 Pulse 86 12/31/19 08:00 Resp 16 12/31/19 08:00 BP 111/65 12/31/19 08:00 Pulse Ox 97 12/31/19 08:00 Intake & Output 12/30/19 12/31/19 12/31/19 18:59 06:59 18:59 Intake Total 758.679 Balance 758.679 Weight 75.1 kg 76 kg Intake: Intake, IV Titration 38.679 Amount Insulin Regular 100 unit 38.679 In Sodium Chloride 0.9% 100 ml @ 0.1 UNITS/KG/HR 7.101 mls/hr IV .[id number] [facility] Rx#:[id number] Oral 720 Other: # Voids 2 1 - Exam The patient appeared well nourished and normally developed. Vital signs as documented. Head exam is unremarkable. No scleral icterus or corneal arcus noted. Neck is without jugular venous distension, thyromegaly, or carotid bruits. Carotid upstrokes are brisk bilaterally. Lungs diminished breath sound bilaterally along with scattered expiratory wheezes throughout the lung brady. Cardiac exam reveals the PMI to be normally sized and situated. Rhythm is regular. First and second heart sounds normal. No murmurs, rubs or gallops. Abdominal exam reveals normal bowel sounds, no masses, no organomegaly and no aortic enlargement. Extremities are nonedematous and both femoral and pedal pulses are normal.Examination of the skin revealed no evidence of significant rashes, suspicious appearing nevi or other concerning lesions.Neurologically, the patient is awake and alert and the patient does not have any focal neurological deficit. Cranial nerves are essentially intact. - Labs CBC & Chem 7: 12/30/19 01:17 12/30/19 08:25 Labs: Abnormal Lab Results - Last 24 Hours (Table) 12/30/19 12/30/19 12/30/19 Range/Units 15:00 16:47 20:50 POC Glucose (mg/dL) 267 H 224 H 203 H (75-99) mg/dL 12/31/19 12/31/19 Range/Units 06:54 11:59 POC Glucose (mg/dL) 201 H 201 H (75-99) mg/dL Assessment and Plan Plan: 1 acute exacerbation of chronic intermittent mild bronchial asthma, rule out underlying tracheal bronchitis, improving 2 shortness of breath secondary to above, improving 3 diabetes mellitus type 1, currently on Levemir insulin 40 units along with 10 units of NovoLog with meals. 4 DKA, mild anion gap metabolic acidosis which recovered. 5 multiple episodes of the care in the past 6 history of depression 7 history of anxiety 8 history of marijuana use and history of stimulant use. 9 nausea/emesis, nonspecific Plan Continue same treatment Continued IV Solu Medrol and use insulin drip if needed especially of the blood sugar goes out of control Continue Symbicort Continue albuterol about she miscarriage [id number] Zithromax 250 mg by mouth daily Coronavirus Covid 19 nasal swab pending Zofran for nausea Blood sugar management Clear liquid diet We'll follow
[2019-12-31] MEDS: PROCHLORPERAZINE 10 MG TAB PO PRN (17:05)
[2019-12-31 17:39] LABS: Glucose,Whole Blood 209 mg/dL (75-99)
--- NOTE | 2019-12-31 18:18 | PN ---
PROGRESS NOTE DATE OF SERVICE: 12/31/2019 CHIEF COMPLAINT: DKA. HISTORY OF PRESENT ILLNESS: This gentleman is starting to have a lot of difficulty with nausea and vomiting. He has had no significant pain. He has had no diarrhea. He has had no hematemesis. PHYSICAL EXAMINATION: Abdomen is flat, soft and nontender. Chest is clear. Cardiac exam is normal. IMPRESSION: 1. Nausea and vomiting; etiology unknown. 2. Diabetic ketoacidosis. 3. Insulin-dependent diabetes mellitus with poor compliance. 4. Depression. PLAN: Antiemetics. Continue to monitor his abdominal findings. If this keeps up, he will be referred to Gastroenterology. MMODL / IJN: [id number] /
[2019-12-31 20:39] LABS: Glucose,Whole Blood 273 mg/dL (75-99)
[2019-12-31] MEDS: traZODone HCL 100 MG TAB PO SCH (20:44)
[2019-12-31] MEDS: LITHIUM CARBONATE 300 MG CAP PO SCH (20:44)
[2020-01-01] MEDS: methylPREDNISolone SOD SUCCI 40 MG/ML 1 ML VIAL IV SCH ×2 (00:32→08:05)
[2020-01-01 07:32] LABS: Glucose,Whole Blood 215 mg/dL (75-99)
[2020-01-01] MEDS: INSULIN DETEMIR (LEVEMIR) 100 UNIT/ML SYR SQ SCH (08:06)
[2020-01-01] MEDS: INSULIN ASPART (NovoLOG) 100 UNIT/ML VIAL SQ SCH ×3 (08:06→17:42)
[2020-01-01] MEDS: PROCHLORPERAZINE 10 MG TAB PO PRN (08:35)
[2020-01-01] MEDS: SYMBICORT 160-4.5 MCG INHALER INHALATION SCH ×2 (08:51→19:49)
[2020-01-01] MEDS: ALBUTEROL HFA INHALER INHALATION SCH ×4 (08:51→19:49)
[2020-01-01 10:18] LABS: ALT 10 U/L (4-49); AST 12 U/L (17-59); African American GFR (CKD) >90 (>60 ml/min/1.73 sqM); Albumin 4.2 g/dL (3.5-5.0); Alkaline Phosphatase 92 U/L (38-126); Anion Gap 10 mmol/L; Blood Urea Nitrogen 10 mg/dL (9-20); Calcium 9.2 mg/dL (8.4-10.2); Carbon Dioxide 29 mmol/L (22-30); Chloride 97 mmol/L (98-107); Glucose 360 mg/dL (74-99); Lithium <0.2 mmol/L; Non-African American GFR(CKD) >90 (>60 ml/min/1.73 sqM); Potassium 4.2 mmol/L (3.5-5.1); Sodium 136 mmol/L (137-145); Total Bilirubin 0.5 mg/dL (0.2-1.3); Total Protein 6.5 g/dL (6.3-8.2)
[2020-01-01 10:33] LABS: Basophils % (A) 0 %; Eosinophils % (A) 0 %; HCT 47.8 % (39.0-53.0); Lymphocytes % (A) 7 %; MCHC 33.5 g/dL (31.0-37.0); MCV 89.6 fL (80.0-100.0); Mean Platelet Volume 7.2; Monocytes # (A) 0.6 k/uL (0-1.0); Monocytes % (A) 5 %; Neutrophils # (A) 12.5 k/uL (1.3-7.7); Neutrophils % (A) 87 %; Platelet Count 247 k/uL (150-450); RBC 5.33 m/uL (4.30-5.90); RDW 12.7 % (11.5-15.5); WBC 14.3 k/uL (3.8-10.6)
[2020-01-01] MEDS ORDERED: TRIMETHOBENZAMIDE 100 MG/ML 2 ML VIAL IM PRN (11:18)
[2020-01-01] MEDS: METOCLOPRAMIDE 5 MG/ML 2 ML VIAL IVP SCH ×2 (11:58→17:39)
[2020-01-01 12:05] LABS: Glucose,Whole Blood 238 mg/dL (75-99)
--- NOTE | 2020-01-01 13:03 | P.PN ---
Subjective Progress Note Date: 01/01/20 Principal diagnosis: Acute exacerbation of chronic intermittent mild bronchial asthma The patient is seen today 01/01/2020 in follow-up on the selective care unit. He is currently awake and alert. He is having ongoing issues with nausea and vomiting this morning. No worsening shortness of breath cough or congestion. Maintaining O2 saturations in the high 90s on room air. He's been afebrile. White count 14.3. Hemoglobin 16.0. Sodium 136. Potassium 4.2. Creatinine 0. 55. Blood sugar 360. Remains on Symbicort, albuterol Objective - Vital Signs Vital signs: Vital Signs Temp 97.5 F L 01/01/20 08:00 Pulse 102 H 01/01/20 08:00 Resp 18 01/01/20 08:00 BP 120/77 01/01/20 08:00 Pulse Ox 99 01/01/20 08:00 Intake & Output 12/31/19 01/01/20 01/01/20 18:59 06:59 18:59 Intake Total 480 Balance 480 Weight 75 kg Intake: Oral 480 Other: # Voids 2 - Exam The patient is a pleasant 24-year-old male, on room air, appeared well nourished and normally developed. Vital signs as documented. Head exam is unremarkable. No scleral icterus or corneal arcus noted. Neck is without jugular venous distension, thyromegaly, or carotid bruits. Carotid upstrokes are brisk bilaterally. Lungs diminished breath sound bilaterally along with scattered expiratory wheezes throughout the lung brady. Cardiac exam reveals the PMI to be normally sized and situated. Rhythm is regular. First and second heart sounds normal. No murmurs, rubs or gallops. Abdominal exam reveals normal bowel sounds, no masses, no organomegaly and no aortic enlargement. Extremities are nonedematous and both femoral and pedal pulses are normal.Examination of the skin revealed no evidence of significant rashes, suspicious appearing nevi or other concerning lesions.Neurologically, the patient is awake and alert and the patient does not have any focal neurological deficit. Cranial nerves are essentially intact. - Labs CBC & Chem 7: 01/01/20 09:38 01/01/20 09:38 Labs: Abnormal Lab Results - Last 24 Hours (Table) 12/31/19 12/31/19 01/01/20 Range/Units 17:28 20:38 07:30 WBC (3.8-10.6) k/uL Neutrophils # (1.3-7.7) k/uL Sodium (137-145) mmol/L Chloride (98-107) mmol/L Creatinine (0.66-1.25) mg/dL Glucose (74-99) mg/dL POC Glucose (mg/dL) 209 H 273 H 215 H (75-99) mg/dL AST (17-59) U/L 01/01/20 01/01/20 01/01/20 Range/Units 09:38 09:38 12:04 WBC 14.3 H (3.8-10.6) k/uL Neutrophils # 12.5 H (1.3-7.7) k/uL Sodium 136 L (137-145) mmol/L Chloride 97 L (98-107) mmol/L Creatinine 0.55 L (0.66-1.25) mg/dL Glucose 360 H (74-99) mg/dL POC Glucose (mg/dL) 238 H (75-99) mg/dL AST 12 L (17-59) U/L Assessment and Plan Assessment: 1 acute exacerbation of chronic intermittent mild bronchial asthma, rule out underlying tracheal bronchitis, improving. CoVID 19 screen negative 2 shortness of breath secondary to above, improving 3 diabetes mellitus type 1, currently on Levemir insulin 40 units along with 10 units of NovoLog with meals. 4 DKA, mild anion gap metabolic acidosis which recovered. 5 multiple episodes of the care in the past 6 history of depression 7 history of anxiety 8 history of marijuana use and history of stimulant use. 9 nausea/emesis, nonspecific Plan The patient was seen and evaluated by Dr. Shankar Currently stable from the pulmonary standpoint Continued on Symbicort, albuterol CoVID 19 screen negative Continue to optimize blood glucose levels Possible diabetic gastroparesis I, the cosigning physician, performed a history & physical examination of the patient. Lungs sounds are clear. Maintaining good O2 saturations in the 90s on room air. I discussed the assessment and plan of care with my nurse practitioner, Jillian Vega. I attest to the above note as dictated by her.
[2020-01-01] MEDS: DICYCLOMINE 20 MG TAB PO SCH ×3 (13:07→22:40)
[2020-01-01] MEDS: busPIRone HCl 10 MG TAB PO SCH ×2 (13:07→21:05)
[2020-01-01] MEDS: AZITHROMYCIN 250 MG TAB PO SCH (13:07)
[2020-01-01] MEDS: GABAPENTIN 300 MG CAP PO SCH ×2 (13:47→21:05)
[2020-01-01] MEDS: CHOLESTYRAMINE (WITH SUGAR) 4 GM PACKET PO SCH ×3 (13:47→21:05)
[2020-01-01] MEDS: VENLAFAXINE HCL ER 150 MG CAP PO SCH (13:47)
[2020-01-01] MEDS: D5-0.45% NACL WITH KCL 20MEQ/L 1,000 ML IV SCH ×3 (14:48→15:50)
[2020-01-01] MEDS: ONDANSETRON 4 MG/2 ML VIAL IVP SCH (15:48)
[2020-01-01 17:22] LABS: Glucose,Whole Blood 134 mg/dL (75-99)
--- NOTE | 2020-01-01 18:25 | PN ---
PROGRESS NOTE DATE OF SERVICE: 01/01/2020 CHIEF COMPLAINT: Nausea and vomiting. HISTORY OF PRESENT ILLNESS: This gentleman has had persistent nausea and vomiting over the last several days. He has had no abdominal distention and he has had no abdominal pain. He has had no hematemesis, diarrhea, melena, etc. He has had no fever or chills. Blood sugars have not been particularly out of control. His white count is rising, however. PHYSICAL EXAMINATION: Chest is clear. Cardiac exam is normal. The abdomen is flat, soft, nontender. There is vomitus in bin next to him. IMPRESSION: 1. Persistent intractable nausea and vomiting, etiology unknown. 2. Leukocytosis. PLAN: 1. Blood work with CBC and Chem profile. 2. Consult with Gastroenterology. 3. Try Reglan 10 mg q.i.d. 4. Change to Tigan for nausea. MMODL / IJN: [id number] /
[2020-01-01 20:28] LABS: Glucose,Whole Blood 160 mg/dL (75-99)
[2020-01-01] MEDS: traZODone HCL 100 MG TAB PO SCH (21:05)
--- NOTE | 2020-01-01 22:37 | P.CONS ---
History of Present Illness - Reason for Consult Consult date: 01/01/20 Nausea and vomiting, gastroparesis Requesting physician: Brown Valenzuela - Chief Complaint Shortness of breath - History of Present Illness 24-year-old male with a medical history significant for childhood asthma, insulin-dependent diabetes mellitus and neuropathy who presented to the hospital for evaluation of shortness of breath. Patient was treated for an acute exacerbation of asthma as well as mild diabetic ketoacidosis. The gastroenterology service was consulted see the patient in regards to nausea and vomiting. The patient reports a six-year history of diabetes. He reports his last hemoglobin A1c was in the 7-8 range. He does have a history of neuropathy. He does not use any medications for nausea and vomiting at home. He denies any focal abdominal pain but does have some soreness secondary to retching. He has had episodes of nausea and vomiting in the past but never as severe as he is currently experiencing. No prior endoscopy. He denies any signs or symptoms of GI bleeding. He does report using marijuana. Review of Systems REVIEW OF SYSTEMS: CONSTITUTIONAL: Denies any fevers, chills, weight change or fatigue. CARDIOVASCULAR: Denies any chest pain, palpitations high or low blood pressures RESPIRATORY: Denies any shortness of breath, hemoptysis or cough at this time with the patient had presented with shortness of breath and cough on presentation. GENITOURINARY: No dysuria or hematuria. MUSCULOSKELETAL: No weakness reported. SKIN: Denies any new rashes or lesions, jaundice or pallor. PSYCHIATRIC: Denies any depression or anxiety. NEUROLOGY: Denies headache, denies any new focal deficits, does report lower extremity neuropathy. EARS/NOSE/THROAT: No recent hearing change, congestion, nasal discharge or sore throat. EYES: No pain in eyes, discharge or change in vision. GASTROINTESTINAL: As per HPI. Past Medical History Past Medical History: Asthma, Diabetes Mellitus, Skin Disorder Additional Past Medical History / Comment(s): IDDM type I, neuropathy bilateral feet, DKAs, gastroparesis, eczema. History of Any Multi-Drug Resistant Organisms: None Reported Past Surgical History: Adenoidectomy Additional Past Surgical History / Comment(s): 2002 Past Anesthesia/Blood Transfusion Reactions: No Reported Reaction Past Psychological History: Anxiety, Depression Additional Psychological History / Comment(s): Pt states he is currently homel ess. He states he can get rides to appointments. Pt states he has access to diabetic supplies. Smoking Status: Current some day smoker Past Alcohol Use History: None Reported Additional Past Alcohol Use History / Comment(s): Started smoking at age 15, quit age 19. Past Drug Use History: Marijuana Additional Drug Use History / Comment(s): Occasional - Past Family History Mother Family Medical History: CVA/TIA Father Family Medical History: Hyperlipidemia, Hypertension Additional Family Medical History / Comment(s): . Medications and Allergies Home Medications Medication Instructions Recorded Confirmed Type Gabapentin [Neurontin] 600 mg PO BID 30 Days cap 09/01/19 12/30/19 Rx Insulin Glargine,Hum.rec.anlog 40 units SQ DAILY 09/01/19 12/30/19 History [Basaglar Kwikpen U-100] Insulin Lispro [Admelog] 10 units SQ AC-TID 09/01/19 12/30/19 History Venlafaxine HCl [Effexor XR] 150 mg PO DAILY 09/01/19 12/30/19 History traZODone HCL [Desyrel] 200 mg PO HS 30 Days tab 09/01/19 12/30/19 Rx Cholestyramine (with Sugar) 4 gm PO TID 12/04/19 12/30/19 History [Questran Packet] Dicyclomine [Bentyl] 20 mg PO ACHS 12/04/19 12/30/19 History Longfellow Carbonate 300 mg PO HS 12/04/19 12/30/19 History busPIRone HCL [Buspar] 30 mg PO BID 12/04/19 12/30/19 History Insulin Lispro [Admelog] 6 units SQ HS 12/15/19 12/30/19 History Allergies Allergy/AdvReac Type Severity Reaction Status Date / Time No Known Allergies Allergy Verified 12/30/19 08:12 Physical Exam Vitals: Vital Signs Temp Pulse Resp BP Pulse Ox 01/01/20 08:00 97.5 F L 102 H 18 120/77 99 01/01/20 03:54 98.0 F 100 16 103/57 99 12/31/19 23:51 97.9 F 93 16 103/57 99 12/31/19 21:00 98.0 F 103 H 16 109/62 99 12/31/19 16:00 97.9 F 92 16 115/68 92 L Intake and Output 12/31/19 01/01/20 01/01/20 22:59 06:59 14:59 Intake Total 480 Balance 480 Intake: Oral 480 Other: # Voids 2 Weight 75 kg On physical examination, patient appears comfortable in no apparent distress. HEAD: Normocephalic, atraumatic. EYES: No scleral icterus. No conjunctival injection. MOUTH: No lesions, tongue midline. NECK: Trachea midline, no gross abnormalities. CHEST: Clear to auscultation with no wheezing or rhonchi appreciated. HEART: Regular rate and rhythm. ABDOMEN: Soft, thin and nontender to palpation. Bowel sounds are positive. No organomegaly. No guarding or rigidity. EXTREMITIES: No pedal edema. SKIN: No rashes, no jaundice. NEUROLOGIC: Alert and oriented x3. No focal deficits. Results CBC & Chem 7: 01/01/20 09:38 01/01/20 09:38 Labs: Abnormal Lab Results - Last 24 Hours (Table) 12/31/19 12/31/19 01/01/20 Range/Units 17:28 20:38 07:30 WBC (3.8-10.6) k/uL Neutrophils # (1.3-7.7) k/uL Sodium (137-145) mmol/L Chloride (98-107) mmol/L Creatinine (0.66-1.25) mg/dL Glucose (74-99) mg/dL POC Glucose (mg/dL) 209 H 273 H 215 H (75-99) mg/dL AST (17-59) U/L 01/01/20 01/01/20 01/01/20 Range/Units 09:38 09:38 12:04 WBC 14.3 H (3.8-10.6) k/uL Neutrophils # 12.5 H (1.3-7.7) k/uL Sodium 136 L (137-145) mmol/L Chloride 97 L (98-107) mmol/L Creatinine 0.55 L (0.66-1.25) mg/dL Glucose 360 H (74-99) mg/dL POC Glucose (mg/dL) 238 H (75-99) mg/dL AST 12 L (17-59) U/L Chest x-ray: report reviewed (Normal chest on x-ray of the chest.) Assessment and Plan (1) Nausea & vomiting Narrative/Plan: 24-year-old male with multiple medical comorbidities including insulin-dependent diabetes, neuropathy, asthma who presented to the hospital with complaints of shortness of breath. He was treated for an acute exacerbation of his asthma as well as DKA. Currently blood sugars to remain greater than 200. He has had multiple episodes of nausea and vomiting. He reports similar episodes of nausea and vomiting in the past but never as severe as is current symptoms. He denies any history of peptic ulcer disease. He does not take any antiemetics at home. Unclear if symptoms are related to gastroparesis, uncontrolled diabetes, gastroenteritis, cannabis hyperemesis syndrome or other etiology. Current Visit: No Status: Acute Code(s): R11.2 - NAUSEA WITH VOMITING, UNSPECIFIED SNOMED Code(s): 08991649 (2) Cannabis abuse Current Visit: No Status: Acute Priority: Medium Code(s): F12.10 - CANNABIS ABUSE, UNCOMPLICATED SNOMED Code(s): 39179699 Plan: Supportive care Okay for diet as tolerated Tight glycemic control Electrolyte replacement as needed Reglan therapy ordered by primary team Continue Tigan as needed for breakthrough nausea Zofran standing order Continue to monitor her symptomatically Thank you for allowing us to participate in the care of the patient
[2020-01-01] MEDS: LITHIUM CARBONATE 300 MG CAP PO SCH (22:40)
[2020-01-02] MEDS: METOCLOPRAMIDE 5 MG/ML 2 ML VIAL IVP SCH ×5 (00:15→23:40)
[2020-01-02] MEDS: ONDANSETRON 4 MG/2 ML VIAL IVP SCH ×5 (00:16→23:40)
[2020-01-02] MEDS: D5-0.45% NACL WITH KCL 20MEQ/L 1,000 ML IV SCH (04:31)
[2020-01-02 06:57] LABS: Glucose,Whole Blood 197 mg/dL (75-99)
[2020-01-02] MEDS: SYMBICORT 160-4.5 MCG INHALER INHALATION SCH ×2 (07:54→19:57)
[2020-01-02] MEDS: ALBUTEROL HFA INHALER INHALATION SCH ×4 (07:55→19:57)
[2020-01-02] MEDS: INSULIN DETEMIR (LEVEMIR) 100 UNIT/ML SYR SQ SCH (08:40)
[2020-01-02] MEDS: AZITHROMYCIN 250 MG TAB PO SCH (08:41)
[2020-01-02] MEDS: DICYCLOMINE 20 MG TAB PO SCH ×4 (08:41→20:50)
[2020-01-02] MEDS: busPIRone HCl 10 MG TAB PO SCH ×2 (08:41→20:50)
[2020-01-02] MEDS: INSULIN ASPART (NovoLOG) 100 UNIT/ML VIAL SQ SCH ×3 (08:41→17:21)
[2020-01-02] MEDS: GABAPENTIN 300 MG CAP PO SCH ×2 (08:42→20:50)
[2020-01-02] MEDS: CHOLESTYRAMINE (WITH SUGAR) 4 GM PACKET PO SCH ×3 (08:42→20:50)
--- NOTE | 2020-01-02 11:43 | P.PN ---
Subjective Progress Note Date: 01/02/20 Principal diagnosis: Acute exacerbation of chronic intermittent mild bronchial asthma The patient is seen today 01/01/2020 in follow-up on the selective care unit. He is currently awake and alert. He is having ongoing issues with nausea and vomiting this morning. No worsening shortness of breath cough or congestion. Maintaining O2 saturations in the high 90s on room air. He's been afebrile. White count 14.3. Hemoglobin 16.0. Sodium 136. Potassium 4.2. Creatinine 0. 55. Blood sugar 360. Remains on Symbicort, albuterol The patient is seen today 01/02/2020 in follow-up on the regular medical floor. He is awake and alert in no acute distress. His nausea and vomiting has subsided. He is still has some loose nonproductive cough and congestion. Still with a poor appetite. Current glucose 197. He remains on Tigan, Zofran, Reglan. He is continued on Symbicort and Ventolin. Objective - Vital Signs Vital signs: Vital Signs Temp 98.0 F 01/02/20 05:24 Pulse 85 01/02/20 05:24 Resp 16 01/02/20 05:24 BP 85/56 01/02/20 05:24 Pulse Ox 97 01/02/20 05:24 Intake & Output 01/01/20 01/02/20 01/02/20 18:59 06:59 18:59 Intake Total 550 Balance 550 Weight 72.5 kg Intake: Intake, IV Titration 550 Amount D5-0.45% NaCl with KCl 550 20Meq/l 1,000 ml @ 50 mls /hr IV .Q20H [facility] Rx#: [id number] Other: # Voids 1 - Exam The patient is a pleasant 24-year-old male, on room air, appeared well nourished and normally developed. Vital signs as documented. Head exam is unremarkable. No scleral icterus or corneal arcus noted. Neck is without jugular venous distension, thyromegaly, or carotid bruits. Carotid upstrokes are brisk bilaterally. Lungs diminished breath sound bilaterally along with scattered expiratory wheezes throughout the lung brady. Cardiac exam reveals the PMI to be normally sized and situated. Rhythm is regular. First and second heart sounds normal. No murmurs, rubs or gallops. Abdominal exam reveals normal bowel sounds, no masses, no organomegaly and no aortic enlargement. Extremities are nonedematous and both femoral and pedal pulses are normal.Examination of the skin revealed no evidence of significant rashes, suspicious appearing nevi or other concerning lesions.Neurologically, the patient is awake and alert and the patient does not have any focal neurological deficit. Cranial nerves are essentially intact. - Labs CBC & Chem 7: 01/01/20 09:38 01/01/20 09:38 Labs: Abnormal Lab Results - Last 24 Hours (Table) 01/01/20 01/01/20 01/01/20 Range/Units 12:04 17:13 20:17 POC Glucose (mg/dL) 238 H 134 H 160 H (75-99) mg/dL 01/02/20 Range/Units 06:54 POC Glucose (mg/dL) 197 H (75-99) mg/dL Assessment and Plan Assessment: 1 acute exacerbation of chronic intermittent mild bronchial asthma, rule out underlying tracheal bronchitis, improving. CoVID 19 screen negative 2 shortness of breath secondary to above, improving 3 diabetes mellitus type 1, currently on Levemir insulin 40 units along with 10 units of NovoLog with meals. 4 DKA, mild anion gap metabolic acidosis which recovered. 5 multiple episodes of the care in the past 6 history of depression 7 history of anxiety 8 history of marijuana use and history of stimulant use. 9 nausea/emesis, nonspecific, suspect gastroparesis versus viral gastritis Plan The patient was seen and evaluated by Dr. Shankar Continued on Symbicort, albuterol Discontinue azithromycin Continue to optimize blood glucose levels Possible diabetic gastroparesis I, the cosigning physician, performed a history & physical examination of the patient. Lungs sounds diminished with bilateral end expiratory wheeze. Maintaining good O2 saturations in the 90s on room air. I discussed the assessment and plan of care with my nurse practitioner, Jillian Vega. I attest to the above note as dictated by her.
[2020-01-02 11:44] LABS: Glucose,Whole Blood 271 mg/dL (75-99)
[2020-01-02 11:54] VITALS: RESP 18
--- NOTE | 2020-01-02 13:00 | PN ---
PROGRESS NOTE CHIEF COMPLAINT: Persistent nausea and vomiting. HISTORY OF PRESENT ILLNESS: This gentleman has been seen by Gastroenterology. He is still having episodes of vomiting. Gastroenterology feels that this may be due to gastroparesis. PHYSICAL EXAMINATION: Abdomen is flat and soft. Extremities are normal and neurological is intact. IMPRESSION: 1. Uncontrolled type 1 insulin-dependent diabetes mellitus. 2. Gastroparesis. 3. Intractable vomiting. PLAN: Continue with current program and await further recommendations from GI. MMODL / IJN: [id number] /
[2020-01-02 17:03] LABS: Glucose,Whole Blood 197 mg/dL (75-99)
[2020-01-02 20:36] LABS: Glucose,Whole Blood 167 mg/dL (75-99)
[2020-01-02] MEDS: LITHIUM CARBONATE 300 MG CAP PO SCH (20:50)
[2020-01-02] MEDS: traZODone HCL 100 MG TAB PO SCH (20:50)
[2020-01-03] MEDS: ONDANSETRON 4 MG/2 ML VIAL IVP SCH ×2 (05:23→11:09)
[2020-01-03] MEDS: METOCLOPRAMIDE 5 MG/ML 2 ML VIAL IVP SCH ×2 (05:23→11:09)
[2020-01-03] MEDS: D5-0.45% NACL WITH KCL 20MEQ/L 1,000 ML IV SCH (05:24)
[2020-01-03 07:18] LABS: Glucose,Whole Blood 202 mg/dL (75-99)
[2020-01-03] MEDS: DICYCLOMINE 20 MG TAB PO SCH ×2 (08:12→12:56)
[2020-01-03] MEDS: GABAPENTIN 300 MG CAP PO SCH (08:12)
[2020-01-03] MEDS: busPIRone HCl 10 MG TAB PO SCH (08:12)
[2020-01-03] MEDS: INSULIN DETEMIR (LEVEMIR) 100 UNIT/ML SYR SQ SCH (08:12)
[2020-01-03] MEDS: INSULIN ASPART (NovoLOG) 100 UNIT/ML VIAL SQ SCH ×2 (08:12→12:56)
[2020-01-03] MEDS: CHOLESTYRAMINE (WITH SUGAR) 4 GM PACKET PO SCH (08:13)
[2020-01-03] MEDS: ALBUTEROL HFA INHALER INHALATION SCH ×3 (08:18→15:12)
[2020-01-03] MEDS: SYMBICORT 160-4.5 MCG INHALER INHALATION SCH (08:18)
[2020-01-03 11:52] VITALS: BP 112/69; PULSE 120; TEMP 98.3
[2020-01-03 11:59] LABS: Glucose,Whole Blood 220 mg/dL (75-99)
--- NOTE | 2020-01-03 12:26 | P.PN ---
Subjective Progress Note Date: 01/03/20 Principal diagnosis: Acute exacerbation of mild intermittent bronchial asthma On 01/03/2020 patient seen in follow-up on general medical surgical floor, she is resting comfortably in bed, in no acute distress, he is on room air, lung sounds are clear, vital signs are stable, his had no fever or chills, respirations are nonlabored, good air entry noted bilaterally, he remains on D5 half-normal saline with 20 of potassium running at 50 ML per hour, he continues on sliding scale NovoLog and Levemir at 40 units daily. He is on nebulized bronchodilators in the form of Symbicort and albuterol. His had no acute events overnight. He is tolerating oral diet. Objective - Vital Signs Vital signs: Vital Signs Temp 98.3 F 01/03/20 11:38 Pulse 120 H 01/03/20 11:38 Resp 18 01/03/20 11:38 BP 112/69 01/03/20 11:38 Pulse Ox 97 01/03/20 11:38 Intake & Output 01/02/20 01/03/20 01/03/20 18:59 06:59 18:59 Intake Total 840 1080 Balance 840 1080 Weight 69.5 kg Intake: Intake, IV Titration 600 600 Amount D5-0.45% NaCl with KCl 600 600 20Meq/l 1,000 ml @ 50 mls /hr IV .Q20H [facility] Rx#: [id number] Oral 240 480 Other: # Voids 2 1 - Exam GENERAL EXAM: Alert, very pleasant, 24-year-old white male, on room air with a pulse ox of 97%, comfortable in no apparent distress. HEAD: Normocephalic/atraumatic. EYES: Normal reaction of pupils, equal size. Conjunctiva pink, sclera white. NOSE: Clear with pink turbinates. THROAT: No erythema or exudates. NECK: No masses, no JVD, no thyroid enlargement, no adenopathy. CHEST: No chest wall deformity. Symmetrical expansion. LUNGS: Equal air entry with no crackles, wheeze, rhonchi or dullness. CVS: Regular rate and rhythm, normal S1 and S2, no gallops, no murmurs, no rubs ABDOMEN: Soft, nontender. No hepatosplenomegaly, normal bowel sounds, no guarding or rigidity. EXTREMITIES: No clubbing, no edema, no cyanosis, 2+ pulses and upper and lower extremities. MUSCULOSKELETAL: Muscle strength and tone normal. SPINE: No scoliosis or deformity SKIN: No rashes CENTRAL NERVOUS SYSTEM: Alert and oriented -3. No focal deficits, tone is nor mal in all 4 extremities. PSYCHIATRIC: Alert and oriented -3. Appropriate affect. Intact judgment and insight. - Labs CBC & Chem 7: 01/01/20 09:38 01/01/20 09:38 Labs: Abnormal Lab Results - Last 24 Hours (Table) 01/02/20 01/02/20 01/03/20 Range/Units 17:01 20:33 07:13 POC Glucose (mg/dL) 197 H 167 H 202 H (75-99) mg/dL 01/03/20 Range/Units 11:41 POC Glucose (mg/dL) 220 H (75-99) mg/dL Assessment and Plan Plan: Assessment: 1 acute exacerbation of chronic intermittent mild bronchial asthma, rule out underlying tracheal bronchitis, improving. CoVID 19 screen negative 2 shortness of breath secondary to above, improving 3 diabetes mellitus type 1, currently on Levemir insulin 40 units along with 10 units of NovoLog with meals. 4 DKA, mild anion gap metabolic acidosis which recovered. 5 multiple episodes of the care in the past 6 history of depression 7 history of anxiety 8 history of marijuana use and history of stimulant use. 9 nausea/emesis, nonspecific, suspect gastroparesis versus viral gastritis, improved Plan: Patient is doing well, no acute events overnight, less dyspneic, no wheezing, no cough or congestion, no chest tightness. Vital signs have been stable, no fever or chills, continue with Symbicort and albuterol, patient will need outpatient follow-up with Dr. Shankar in the office in 7-10 days, he could be considered for discharge home today from pulmonary perspective. I performed a history & physical examination of the patient and discussed their management with my nurse practitioner, Alysha Kamara. I reviewed the nurse practitioner's note and agree with the documented findings and plan of care. Lung sounds are positive for clear breath sounds. The findings and the impression was discussed with the patient. I attest to the documentation by the nurse practitioner. Time with Patient: Less than 30
--- NOTE | 2020-01-03 13:10 | P.PN ---
Subjective Progress Note Date: 01/02/20 Principal diagnosis: Nausea and vomiting Patient is seen lying in bed still reporting some nausea today. Worsened with liquids. Objective - Vital Signs Vital signs: Vital Signs Temp 98.0 F 01/02/20 05:24 Pulse 85 01/02/20 05:24 Resp 16 01/02/20 05:24 BP 85/56 01/02/20 05:24 Pulse Ox 97 01/02/20 05:24 Intake & Output 01/01/20 01/02/20 01/02/20 18:59 06:59 18:59 Intake Total 550 Balance 550 Weight 72.5 kg Intake: Intake, IV Titration 550 Amount D5-0.45% NaCl with KCl 550 20Meq/l 1,000 ml @ 50 mls /hr IV .Q20H [facility] Rx#: [id number] Other: # Voids 1 - Exam On physical examination, patient appears comfortable in no apparent distress. HEAD: Normocephalic, atraumatic. EYES: No scleral icterus. No conjunctival injection. MOUTH: No lesions, tongue midline. NECK: Trachea midline, no gross abnormalities. CHEST: Clear to auscultation with no wheezing or rhonchi appreciated. HEART: Regular rate and rhythm. ABDOMEN: Soft, obese. Bowel sounds are positive. No organomegaly. No guarding or rigidity. EXTREMITIES: No pedal edema. SKIN: No rashes, no jaundice. NEUROLOGIC: Alert and oriented x3. No focal deficits. - Labs CBC & Chem 7: 01/01/20 09:38 01/01/20 09:38 Labs: Abnormal Lab Results - Last 24 Hours (Table) 01/01/20 01/01/20 01/01/20 Range/Units 12:04 17:13 20:17 POC Glucose (mg/dL) 238 H 134 H 160 H (75-99) mg/dL 01/02/20 Range/Units 06:54 POC Glucose (mg/dL) 197 H (75-99) mg/dL Assessment and Plan (1) Nausea & vomiting Narrative/Plan: 24-year-old male with multiple medical comorbidities including insulin-dependent diabetes, neuropathy, asthma who presented to the hospital with complaints of shortness of breath. He was treated for an acute exacerbation of his asthma as well as DKA. Currently blood sugars to remain greater than 200. He has had multiple episodes of nausea and vomiting. He reports similar episodes of nausea and vomiting in the past but never as severe as is current symptoms. He denies any history of peptic ulcer disease. He does not take any antiemetics at home. Unclear if symptoms are related to gastroparesis, uncontrolled diabetes, gastroenteritis, cannabis hyperemesis syndrome or other etiology. Current Visit: No Status: Acute Code(s): R11.2 - NAUSEA WITH VOMITING, UNSPECIFIED SNOMED Code(s): 06334525 (2) Cannabis abuse Current Visit: No Status: Acute Priority: Medium Code(s): F12.10 - CANNABIS ABUSE, UNCOMPLICATED SNOMED Code(s): 83741960 Plan: Supportive care Okay for diet as tolerated Tight glycemic control Electrolyte replacement as needed Reglan therapy ordered by primary team Continue Tigan as needed for breakthrough nausea Zofran around the clock Protonix 40 mg twice daily Continue to monitor her symptomatically Thank you for allowing us to participate in the care of the patient
[2020-01-03] MEDS ORDERED: PANTOPRAZOLE 40 MG/10 ML VIAL IVP SCH (13:15)
--- NOTE | 2020-01-03 18:36 | DS ---
DISCHARGE SUMMARY DATE OF SERVICE: 01/03/2020. CHIEF COMPLAINT: DKA. HISTORY OF PRESENT ILLNESS AND PHYSICAL EXAM: Details of this man's history and physical can be found in the initial workup. LABORATORY STUDIES: While he was in the hospital, he had laboratory studies, details of which can be found in the laboratory section of his chart. COURSE IN THE HOSPITAL: After admission, he was placed on bedrest, started on intravenous fluids and treated for his diabetic ketoacidosis. Sugars came down as well. Then, suddenly, he started to have unexplained nausea and vomiting. He had no significant pain, distention, fever, chills, diarrhea, etc. This went on for 4 or 5 days and then he was seen by Gastroenterology. It was thought that this might be gastroparesis, but it really did fit the picture. On the morning of the , he stated he is feeling well and it was felt he could be discharged and he will go home on his usual activity, diet and medication and will follow up in the hospital in a day or 2. FINAL DIAGNOSES: 1. Diabetic ketoacidosis. 2. Depression. 3. Dehydration. 4. Unexplained episode of nausea and vomiting. 5. Possible gastroparesis. OPERATIONS: None. CONSULTATIONS: Gastroenterology. He is improved. MMODL / IJN: [id number] /
== END 2020-01-03 16:38 | disposition home or self-care (01) ==
LOC: EC 01:03 → INTOOBSV 02:37 → 3SCARD 02:37 → 5NMEDONC 01-01 14:42 → UNDODISIN 01-03 16:38
PROVIDERS: ADMIT Family Medicine; ATTEND Family Medicine
DX: J45.21 Mild intermittent asthma with (acute) exacerbation (principal); E10.10 Type 1 diabetes mellitus with ketoacidosis without coma; E10.42 Type 1 diabetes mellitus with diabetic polyneuropathy; E86.0 Dehydration; F32.9 Major depressive disorder, single episode, unspecified; F41.9 Anxiety disorder, unspecified; R11.2 Nausea with vomiting, unspecified; I25.10 Atherosclerotic heart disease of native coronary artery without angina pectoris; G62.9 Polyneuropathy, unspecified; F60.9 Personality disorder, unspecified; D72.829 Elevated white blood cell count, unspecified; F12.10 Cannabis abuse, uncomplicated; R63.0 Anorexia; L30.9 Dermatitis, unspecified; Z79.4 Long term (current) use of insulin; Z79.899 Other long term (current) drug therapy; F17.210 Nicotine dependence, cigarettes, uncomplicated; Z90.89 Acquired absence of other organs; Z20.828 Contact with and (suspected) exposure to other viral communicable diseases; Z59.0 Homelessness; Z91.19 Patient's noncompliance with other medical treatment and regimen; Z82.49 Family history of ischemic heart disease and other diseases of the circulatory system; Z82.3 Family history of stroke; Z83.49 Family history of other endocrine, nutritional and metabolic diseases
CPT/HCPCS: 96376 ×5; 96366 ×5; 96361 ×3; 96365; 96372; 96375 ×2; 99285; 36415; 94640 ×5; 93005; 85379; 83880; 80051; 80053 ×2; 82150; 82565; 82009; 83605; 83690 ×2; 80178; 83735; 84100; 82947; 84520; 85025 ×2; 81003; 80306; 71046; G0378 ×6; U0003; S0183 ×2; J2765 ×2; J2920 ×3; J3250; J2405 ×4; 96360

== ENCOUNTER 2020-01-15 10:40 | Inpatient (IN) | payer OTHER ==
[2020-01-15] MEDS ORDERED: SODIUM CHLORIDE 0.9% 1,000 ML IV ONE (10:59)
[2020-01-15 11:19] LABS: Glucose,Whole Blood 386 mg/dL (75-99)
[2020-01-15] MEDS ORDERED: Magnesium Replacement Protocol 1 EACH MISC MISCELLANE PRN (11:24)
[2020-01-15] MEDS ORDERED: INSULIN REGULAR BOLUS (FROM DRIP BAG) IV ONE (11:24)
--- NOTE | 2020-01-15 11:29 | ED ---
General Adult HPI - General Chief complaint: Recheck/Abnormal Lab/Rx Stated complaint: DKA Time Seen by Provider: 01/15/20 10:40 Source: patient, RN notes reviewed, old records reviewed Mode of arrival: ambulatory Limitations: no limitations - History of Present Illness Initial comments: This is a 24-year-old male with past medical history of diabetes which is uncontrolled usually and he often has DKA. Patient comes in today stating I think I'm in DKA. Patient states he slightly nauseated but has not vomited. Patient denies any chest pain. Patient denies any abdominal pain patient denies any diarrhea. Patient denies any cough or difficulty breathing. Patient states overall he does feel weaker. Patient denies any fever chills or shortness of breath. Patient denies any headache patient denies numbness or focal weakness. Patient is not giving a very good history she keeps saying he thinks he is in DKA and walk it much more specific than that. Patient states he is not controlling his diabetes very well. - Related Data Home Medications Medication Instructions Recorded Confirmed Insulin Glargine,Hum.rec.anlog 40 units SQ DAILY 09/01/19 12/30/19 [Basaglar Kwikpen U-100] Insulin Lispro [Admelog] 10 units SQ AC-TID 09/01/19 12/30/19 Venlafaxine HCl [Effexor XR] 150 mg PO DAILY 09/01/19 12/30/19 Cholestyramine (with Sugar) 4 gm PO TID 12/04/19 12/30/19 [Questran Packet] [place] Carbonate 300 mg PO HS 12/04/19 12/30/19 busPIRone HCL [Buspar] 30 mg PO BID 12/04/19 12/30/19 Insulin Lispro [Admelog] 6 units SQ HS 12/15/19 12/30/19 Previous Rx's Medication Instructions Recorded Gabapentin [Neurontin] 600 mg PO BID 30 Days cap 09/01/19 traZODone HCL [Desyrel] 200 mg PO HS 30 Days tab 09/01/19 Allergies Allergy/AdvReac Type Severity Reaction Status Date / Time No Known Allergies Allergy Verified 01/15/20 10:44 Review of Systems ROS Statement: Those systems with pertinent positive or pertinent negative responses have been documented in the HPI. ROS Other: All systems not noted in ROS Statement are negative. Past Medical History Past Medical History: Asthma, Diabetes Mellitus, Skin Disorder Additional Past Medical History / Comment(s): IDDM type I, neuropathy bilateral feet, DKAs, gastroparesis, eczema. History of Any Multi-Drug Resistant Organisms: None Reported Past Surgical History: Adenoidectomy Additional Past Surgical History / Comment(s): 2002 Past Anesthesia/Blood Transfusion Reactions: No Reported Reaction Past Psychological History: Anxiety, Depression Smoking Status: Former smoker Past Alcohol Use History: Occasional Past Drug Use History: Marijuana - Past Family History Mother Family Medical History: CVA/TIA Father Family Medical History: Hyperlipidemia, Hypertension Additional Family Medical History / Comment(s): . General Exam - General Exam Comments Initial Comments: GENERAL: Patient is well-developed and well-nourished. Patient is nontoxic and well- hydrated and is in no acute distress. ENT: Neck is soft and supple. No significant lymphadenopathy is noted. Oropharynx is clear. Moist mucous membranes. Neck has full range of motion without el iciting any pain. EYES: The sclera were anicteric and conjunctiva were pink and moist. Extraocular movements were intact and pupils were equal round and reactive to light. Eyelids were unremarkable. PULMONARY: Unlabored respirations. Good breath sounds bilaterally. No audible rales rhonchi or wheezing was noted. CARDIOVASCULAR: There is a regular rate and rhythm without any murmurs gallops or rubs. ABDOMEN: Soft and nontender with normal bowel sounds. SKIN: Skin is clear with no lesions or rashes and otherwise unremarkable. NEUROLOGIC: Patient is alert and oriented x3. Cranial nerves II through XII are grossly intact. Motor and sensory are also intact. Normal speech, volume and content. Symmetrical smile. MUSCULOSKELETAL: Normal extremities with adequate strength and full range of motion. LYMPHATICS: No significant lymphadenopathy is noted PSYCHIATRIC: Normal psychiatric evaluation. Limitations: no limitations Course Vital Signs 01/15/20 10:42 Temperature 97.8 F Pulse Rate 106 H Respiratory 18 Rate Blood Pressure 122/88 O2 Sat by Pulse 98 Oximetry Medical Decision Making - Medical Decision Making EKG shows a normal sinus rhythm at 89 bpm ME interval 160 QRS is 90 QT interval 362 QTC is 440. Patient's EKG shows no ST segment elevation or depression. I started the patient on insulin drip his sugars high is acetone positive. I also gave the patient a liter fluid and I will followed up with another liter I spoke with Dr. Schwartz and he agreed to admit the patient admitted the patient wrote admitting orders - Lab Data Result diagrams: 01/15/20 11:05 01/15/20 11:05 Lab Results 01/15/20 01/15/20 01/15/20 Range/Units 11:05 11:05 11:05 WBC 8.3 (3.8-10.6) k/uL RBC 5.73 (4.30-5.90) m/uL Hgb 17.2 (13.0-17.5) gm/dL Hct 51.3 (39.0-53.0) % MCV 89.5 (80.0-100.0) fL MCH 29.9 (25.0-35.0) pg MCHC 33.5 (31.0-37.0) g/dL RDW 12.6 (11.5-15.5) % Plt Count 316 (150-450) k/uL Neutrophils % 59 % Lymphocytes % 25 % Monocytes % 6 % Eosinophils % 7 % Basophils % 1 % Neutrophils # 4.9 (1.3-7.7) k/uL Lymphocytes # 2.1 (1.0-4.8) k/uL Monocytes # 0.5 (0-1.0) k/uL Eosinophils # 0.5 (0-0.7) k/uL Basophils # 0.1 (0-0.2) k/uL Sodium 137 (137-145) mmol/L Potassium 4.5 (3.5-5.1) mmol/L Chloride 98 (98-107) mmol/L Carbon Dioxide 22 (22-30) mmol/L Anion Gap 17 mmol/L BUN 10 (9-20) mg/dL Creatinine 0.58 L (0.66-1.25) mg/dL Est GFR (CKD-EPI)AfAm >90 (>60 ml/min/1.73 sqM) Est GFR (CKD-EPI)NonAf >90 (>60 ml/min/1.73 sqM) Glucose 402 H (74-99) mg/dL POC Glucose (mg/dL) (75-99) mg/dL POC Glu Adjunct Sociology Professor ID Calcium 9.5 (8.4-10.2) mg/dL Total Bilirubin 0.6 (0.2-1.3) mg/dL AST 17 (17-59) U/L ALT 15 (4-49) U/L Alkaline Phosphatase 101 (38-126) U/L Total Protein 7.3 (6.3-8.2) g/dL Albumin 4.9 (3.5-5.0) g/dL Urine Color Light Yellow Urine Appearance Clear (Clear) Urine pH 5.0 (5.0-8.0) Ur Specific [place] 1.041 H (1.001-1.035) Urine Protein Negative (Negative) Urine Glucose (UA) 4+ H (Negative) Urine Ketones 4+ H (Negative) Urine Blood Negative (Negative) Urine Nitrite Negative (Negative) Urine Bilirubin Negative (Negative) Urine Urobilinogen <2.0 (<2.0) mg/dL Ur Leukocyte Esterase Negative (Negative) Acetone, Qual Positive (Negative) 01/15/20 01/15/20 Range/Units 11:17 12:01 WBC (3.8-10.6) k/uL RBC (4.30-5.90) m/uL Hgb (13.0-17.5) gm/dL Hct (39.0-53.0) % MCV (80.0-100.0) fL MCH (25.0-35.0) pg MCHC (31.0-37.0) g/dL RDW (11.5-15.5) % Plt Count (150-450) k/uL Neutrophils % % Lymphocytes % % Monocytes % % Eosinophils % % Basophils % % Neutrophils # (1.3-7.7) k/uL Lymphocytes # (1.0-4.8) k/uL Monocytes # (0-1.0) k/uL Eosinophils # (0-0.7) k/uL Basophils # (0-0.2) k/uL Sodium (137-145) mmol/L Potassium (3.5-5.1) mmol/L Chloride (98-107) mmol/L Carbon Dioxide (22-30) mmol/L Anion Gap mmol/L BUN (9-20) mg/dL Creatinine (0.66-1.25) mg/dL Est GFR (CKD-EPI)AfAm (>60 ml/min/1.73 sqM) Est GFR (CKD-EPI)NonAf (>60 ml/min/1.73 sqM) Glucose (74-99) mg/dL POC Glucose (mg/dL) 386 H 312 H (75-99) mg/dL POC Glu Adjunct Sociology Professor ID Zafar Malone Kayla Calcium (8.4-10.2) mg/dL Total Bilirubin (0.2-1.3) mg/dL AST (17-59) U/L ALT (4-49) U/L Alkaline Phosphatase (38-126) U/L Total Protein (6.3-8.2) g/dL Albumin (3.5-5.0) g/dL Urine Color Urine Appearance (Clear) Urine pH (5.0-8.0) Ur Specific [place] (1.001-1.035) Urine Protein (Negative) Urine Glucose (UA) (Negative) Urine Ketones (Negative) Urine Blood (Negative) Urine Nitrite (Negative) Urine Bilirubin (Negative) Urine Urobilinogen (<2.0) mg/dL Ur Leukocyte Esterase (Negative) Acetone, Qual (Negative) Disposition Clinical Impression: DKA (diabetic ketoacidoses) Disposition: ADMITTED IP TO THIS HOSP Referrals: Brown Valenzuela MD [Primary Care Provider] - 1-2 days Time of Disposition: 12:24
[2020-01-15] MEDS ORDERED: INSULIN REGULAR 100 UNIT in SODIUM CHLORIDE 0.9% 100 ML IV SCH ×2 (11:30→12:30)
[2020-01-15 11:32] LABS: Basophils # (A) 0.1 k/uL (0-0.2); Basophils % (A) 1 %; Eosinophils # (A) 0.5 k/uL (0-0.7); Eosinophils % (A) 7 %; HCT 51.3 % (39.0-53.0); HGB 17.2 gm/dL (13.0-17.5); Lymphocytes # (A) 2.1 k/uL (1.0-4.8); Lymphocytes % (A) 25 %; MCH 29.9 pg (25.0-35.0); MCHC 33.5 g/dL (31.0-37.0); MCV 89.5 fL (80.0-100.0); Monocytes # (A) 0.5 k/uL (0-1.0); Monocytes % (A) 6 %; Neutrophils # (A) 4.9 k/uL (1.3-7.7); Neutrophils % (A) 59 %; Platelet Count 316 k/uL (150-450); RBC 5.73 m/uL (4.30-5.90); RDW 12.6 % (11.5-15.5); WBC 8.3 k/uL (3.8-10.6)
[2020-01-15 11:34] LABS: Appearance,Urine Clear (Clear); Bilirubin,Urine Negative (Negative); Blood,Urine Negative (Negative); Color,Urine Light Yellow; Glucose,Urine (UA) 4+ (Negative); Leukocyte Esterase,Urine Negative (Negative); Nitrite,Urine Negative (Negative); Protein,Urine Negative (Negative); Specific Gravity,Urine 1.041 (1.001-1.035); Urobilinogen,Urine <2.0 mg/dL (<2.0)
[2020-01-15 11:39] LABS: ALT 15 U/L (4-49); AST 17 U/L (17-59); African American GFR (CKD) >90 (>60 ml/min/1.73 sqM); Albumin 4.9 g/dL (3.5-5.0); Alkaline Phosphatase 101 U/L (38-126); Anion Gap 17 mmol/L; Blood Urea Nitrogen 10 mg/dL (9-20); Calcium 9.5 mg/dL (8.4-10.2); Carbon Dioxide 22 mmol/L (22-30); Chloride 98 mmol/L (98-107); Glucose 402 mg/dL (74-99); Non-African American GFR(CKD) >90 (>60 ml/min/1.73 sqM); Potassium 4.5 mmol/L (3.5-5.1); Sodium 137 mmol/L (137-145); Total Bilirubin 0.6 mg/dL (0.2-1.3); Total Protein 7.3 g/dL (6.3-8.2)
[2020-01-15 12:10] LABS: Ketones,Urine 4+ (Negative)
[2020-01-15 12:10] LABS: Glucose,Whole Blood 312 mg/dL (75-99)
[2020-01-15] MEDS ORDERED: SODIUM CHLORIDE 0.9% 1,000 ML IV SCH (12:30)
[2020-01-15 12:55] LABS: Glucose,Whole Blood 198 mg/dL (75-99)
[2020-01-15 13:41] LABS: Glucose,Whole Blood 132 mg/dL (75-99)
[2020-01-15 14:46] LABS: Glucose,Whole Blood 73 mg/dL (75-99)
[2020-01-15 15:11] LABS: Glucose,Whole Blood 78 mg/dL (75-99)
[2020-01-15 15:23] LABS: African American GFR (CKD) >90 (>60 ml/min/1.73 sqM); Anion Gap 12 mmol/L; Blood Urea Nitrogen 11 mg/dL (9-20); Carbon Dioxide 25 mmol/L (22-30); Chloride 100 mmol/L (98-107); Glucose 53 mg/dL (74-99); Non-African American GFR(CKD) >90 (>60 ml/min/1.73 sqM); Potassium 3.4 mmol/L (3.5-5.1); Sodium 137 mmol/L (137-145)
[2020-01-15 15:47] LABS: Glucose,Whole Blood 131 mg/dL (75-99)
[2020-01-15] MEDS ORDERED: Potassium Replacement Protocol 1 EACH MISC MISCELLANE PRN (16:06)
[2020-01-15] MEDS: D5-0.45% NACL WITH KCL 20MEQ/L 1,000 ML IV SCH ×3 (16:45→23:21)
[2020-01-15] MEDS: POTASSIUM CHLORIDE ER 20 MEQ TAB.ER PO SCH ×2 (17:04→18:23)
[2020-01-15 17:15] LABS: Glucose,Whole Blood 207 mg/dL (75-99)
[2020-01-15 18:01] LABS: Glucose,Whole Blood 205 mg/dL (75-99)
[2020-01-15 19:18] LABS: Glucose,Whole Blood 209 mg/dL (75-99)
[2020-01-15 19:21] LABS: African American GFR (CKD) >90 (>60 ml/min/1.73 sqM); Anion Gap 7 mmol/L; Blood Urea Nitrogen 9 mg/dL (9-20); Carbon Dioxide 27 mmol/L (22-30); Chloride 99 mmol/L (98-107); Glucose 194 mg/dL (74-99); Non-African American GFR(CKD) >90 (>60 ml/min/1.73 sqM); Potassium 3.9 mmol/L (3.5-5.1); Sodium 133 mmol/L (137-145)
[2020-01-15 20:03] LABS: Glucose,Whole Blood 231 mg/dL (75-99)
[2020-01-15 20:30] VITALS: RESP 16
[2020-01-15] MEDS ORDERED: INSULIN ASPART (NovoLOG) 100 UNIT/ML VIAL SQ SCH (21:00)
[2020-01-15] MEDS ORDERED: traZODone HCL 100 MG TAB PO SCH (21:00)
[2020-01-15] MEDS ORDERED: LITHIUM CARBONATE 300 MG CAP PO SCH (21:00)
[2020-01-15] MEDS: GABAPENTIN 300 MG CAP PO SCH (21:14)
[2020-01-15] MEDS: CHOLESTYRAMINE (WITH SUGAR) 4 GM PACKET PO SCH (21:14)
[2020-01-15] MEDS: busPIRone HCl 10 MG TAB PO SCH (21:14)
[2020-01-15] MEDS: INSULIN ASPART (NovoLOG) 100 UNIT/ML VIAL SQ SCH (21:14)
[2020-01-16 02:02] LABS: Glucose,Whole Blood 280 mg/dL (75-99)
[2020-01-16] MEDS: D5-0.45% NACL WITH KCL 20MEQ/L 1,000 ML IV SCH ×2 (05:21→17:41)
[2020-01-16 06:17] LABS: Glucose,Whole Blood 304 mg/dL (75-99)
[2020-01-16] MEDS: INSULIN ASPART (NovoLOG) 100 UNIT/ML VIAL SQ SCH ×6 (06:40→17:44)
[2020-01-16] MEDS ORDERED: INSULIN DETEMIR (LEVEMIR) 100 UNIT/ML SYR SQ SCH (07:00)
[2020-01-16] MEDS ORDERED: VENLAFAXINE HCL ER 150 MG CAP PO SCH (09:00)
[2020-01-16] MEDS: CHOLESTYRAMINE (WITH SUGAR) 4 GM PACKET PO SCH ×2 (09:25→17:46)
[2020-01-16] MEDS: GABAPENTIN 300 MG CAP PO SCH (09:25)
[2020-01-16] MEDS: busPIRone HCl 10 MG TAB PO SCH (09:25)
[2020-01-16 11:59] LABS: Glucose,Whole Blood 217 mg/dL (75-99)
[2020-01-16 16:50] VITALS: BP 123/70; PULSE 83; TEMP 98.2
[2020-01-16 17:16] LABS: Glucose,Whole Blood 175 mg/dL (75-99)
--- NOTE | 2020-01-16 22:55 | HP ---
HISTORY AND PHYSICAL CHIEF COMPLAINT: DKA. HISTORY OF PRESENT ILLNESS: This is another recent admission for this 24-year-old uncontrolled white male with type 1 insulin-dependent diabetes mellitus. He comes in this time with the excuse for not taking his insulin was that he was drinking. He has had no vomiting. He is given to not taking his insulin and then coming in in DKA. He has been treated for depression. REVIEW OF SYSTEMS: Otherwise unremarkable. He has had no vomiting, confusion, chest pain, etc. Past medical history, family history, and personal and social histories are all unchanged from his recent admitting and discharge summary about a week ago. PHYSICAL EXAMINATION: Blood pressure is 121/64 with a pulse of 84, respirations of 32, and he is afebrile. GENERAL: He appeared to be a tall, slender and in no acute distress. He had a blunted and depressed affect. Head, ears, eyes, nose, mouth, and throat were normal. Chest is clear. Cardiac exam is normal. Abdomen is flat, soft, nontender. Extremities are normal. Neurologically, he was intact. He is admitted to the hospital with diagnoses: 1. Diabetic ketoacidosis. 2. Noncompliant type 1 insulin-dependent diabetic. 3. Depression. 4. Gastroparesis. PLAN: 1. Bed rest. 2. IV fluids. 3. DKA protocol and then resume his usual insulin management. MMODL / IJN: [id number] /
--- NOTE | 2020-01-17 01:56 | DS ---
DISCHARGE SUMMARY DATE OF SERVICE: 01/16/2020 CHIEF COMPLAINT: DKA. HISTORY OF PRESENT ILLNESS AND PHYSICAL EXAM: Details of this man's history and physical can be found in the initial workup. LABORATORY STUDIES: While he was in a hospital he had laboratory studies, details of which can be found in the laboratory section of his chart. COURSE IN THE HOSPITAL: After admission, he was placed on bedrest, started on intravenous fluids and DKA protocol. Blood sugars came under control and his anion gap closed. After that, he had no further problems and was doing well. It was felt he could be discharged on the . He will go home on his usual activity, diet and medication and was encouraged to come into the office for followup, but he will not. FINAL DIAGNOSIS: 1. Diabetic ketoacidosis. 2. Depression. 3. Gastroparesis. OPERATIONS: None. CONSULTATION: None. He is improved. MMODL / TRAMN: [id number] /
== END 2020-01-16 19:19 | disposition home or self-care (01) | DRG 639 ==
LOC: EC 10:40 → 3SCARD 12:25
PROVIDERS: ADMIT Family Medicine; ATTEND Family Medicine
DX: E10.10 Type 1 diabetes mellitus with ketoacidosis without coma (principal); E10.43 Type 1 diabetes mellitus with diabetic autonomic (poly)neuropathy; J45.909 Unspecified asthma, uncomplicated; F41.9 Anxiety disorder, unspecified; F32.9 Major depressive disorder, single episode, unspecified; K31.84 Gastroparesis; T38.3X6A Underdosing of insulin and oral hypoglycemic [antidiabetic] drugs, initial encounter; L30.9 Dermatitis, unspecified; Z79.4 Long term (current) use of insulin; Z79.899 Other long term (current) drug therapy; Z90.89 Acquired absence of other organs; Z87.891 Personal history of nicotine dependence; Z82.49 Family history of ischemic heart disease and other diseases of the circulatory system; Z82.3 Family history of stroke; Z83.438 Family history of other disorder of lipoprotein metabolism and other lipidemia; Z91.128 Patient's intentional underdosing of medication regimen for other reason; Z91.14 Patient's other noncompliance with medication regimen
CPT/HCPCS: 36415; 80051; 80053; 81003; 82009; 82565; 82947; 83735; 84520; 85025; 93005; 96360; 96361; 99285

== ENCOUNTER 2020-01-24 14:59 | Observation (INO) | payer OTHER ==
[2020-01-24] MEDS ORDERED: SODIUM CHLORIDE 0.9% 1,000 ML IV ONE (15:55)
--- NOTE | 2020-01-24 16:19 | ED ---
General Adult HPI - General Chief complaint: Recheck/Abnormal Lab/Rx Stated complaint: Abd Pain Time Seen by Provider: 01/24/20 15:00 Source: patient, RN notes reviewed, old records reviewed Mode of arrival: ambulatory Limitations: no limitations - History of Present Illness Initial comments: This is a 24-year-old male who presents to the emergency department because the patient thinks he is in DKA. Patient states she's been nauseated and vomiting since yesterday and his sugars have been high. Patient states he's had DKA multiple times before and he believes he has again. Patient states he does not have any abdominal pain even though nursing stated he did he disagrees with that. Patient denies chest pain difficulty breathing or shortness of breath. Patient denies any recent fever chills or cough patient denies any headache patient denies lightheadedness. Patient denies any diarrhea. - Related Data Home Medications Medication Instructions Recorded Confirmed Insulin Glargine,Hum.rec.anlog 40 units SQ DAILY 09/01/19 01/24/20 [Basaglar Kwikpen U-100] Insulin Lispro [Admelog] 10 units SQ AC-TID 09/01/19 01/24/20 Venlafaxine HCl [Effexor XR] 150 mg PO DAILY 09/01/19 01/24/20 Cholestyramine (with Sugar) 4 gm PO TID 12/04/19 01/24/20 [Questran Packet] [place] Carbonate 300 mg PO HS 12/04/19 01/24/20 busPIRone HCL [Buspar] 30 mg PO BID 12/04/19 01/24/20 Insulin Lispro [Admelog] 6 units SQ HS 12/15/19 01/24/20 Previous Rx's Medication Instructions Recorded Gabapentin [Neurontin] 600 mg PO BID 30 Days cap 09/01/19 traZODone HCL [Desyrel] 200 mg PO HS 30 Days tab 09/01/19 Allergies Allergy/AdvReac Type Severity Reaction Status Date / Time No Known Allergies Allergy Verified 01/15/20 10:44 Review of Systems ROS Statement: Those systems with pertinent positive or pertinent negative responses have been documented in the HPI. ROS Other: All systems not noted in ROS Statement are negative. Past Medical History Past Medical History: Asthma, Diabetes Mellitus, Skin Disorder Additional Past Medical History / Comment(s): IDDM type I, neuropathy bilateral feet, DKAs, eczema. History of Any Multi-Drug Resistant Organisms: None Reported Past Surgical History: Adenoidectomy Additional Past Surgical History / Comment(s): 2002 Past Anesthesia/Blood Transfusion Reactions: No Reported Reaction Past Psychological History: Anxiety, Depression Smoking Status: Current some day smoker Past Alcohol Use History: Occasional Past Drug Use History: Marijuana - Past Family History Mother Family Medical History: CVA/TIA Father Family Medical History: Hyperlipidemia, Hypertension Additional Family Medical History / Comment(s): . General Exam - General Exam Comments Initial Comments: GENERAL: Patient is well-developed and well-nourished. Patient is nontoxic and well- hydrated and is in mild distress. ENT: Neck is soft and supple. No significant lymphadenopathy is noted. Oropharynx is clear. Moist mucous membranes. Neck has full range of motion without eliciting any pain. EYES: The sclera were anicteric and conjunctiva were pink and moist. Extraocular movements were intact and pupils were equal round and reactive to light. Eyelids were unremarkable. PULMONARY: Unlabored respirations. Good breath sounds bilaterally. No audible rales rhonchi or wheezing was noted. CARDIOVASCULAR: There is a regular rate and rhythm without any murmurs gallops or rubs. ABDOMEN: Soft and nontender with normal bowel sounds. SKIN: Skin is clear with no lesions or rashes and otherwise unremarkable. NEUROLOGIC: Patient is alert and oriented x3. Cranial nerves II through XII are grossly intact. Motor and sensory are also intact. Normal speech, volume and content. Symmetrical smile. MUSCULOSKELETAL: Normal extremities with adequate strength and full range of motion. LYMPHATICS: No significant lymphadenopathy is noted PSYCHIATRIC: Normal psychiatric evaluation. Limitations: no limitations Course Vital Signs 01/24/20 01/24/20 01/24/20 15:00 15:25 16:40 Temperature 98.7 F Pulse Rate 129 H 118 H Pulse Rate [ 122 H Dehydrator Tender ] Respiratory 16 16 Rate Blood Pressure 111/62 117/91 O2 Sat by Pulse 98 97 Oximetry 01/24/20 01/24/20 17:00 18:00 Temperature Pulse Rate 110 H 107 H Pulse Rate [ Dehydrator Tender ] Respiratory 18 20 Rate Blood Pressure 117/91 127/93 O2 Sat by Pulse 97 98 Oximetry Medical Decision Making - Medical Decision Making Patient's acetone positive with a sugar of 333. I started the patient on insulin drip. EKG shows sinus tachycardia her 13 bpm NV interval 246 QRS is 92 QT interval 356 QTC is 488 per patient's EKG shows no ST segment elevation or depression. - Lab Data Result diagrams: 01/24/20 16:22 01/24/20 16:22 Lab Results 01/24/20 01/24/20 Range/Units 16:22 16:22 WBC 9.7 (3.8-10.6) k/uL RBC 5.62 (4.30-5.90) m/uL Hgb 16.6 (13.0-17.5) gm/dL Hct 51.6 (39.0-53.0) % MCV 91.8 (80.0-100.0) fL MCH 29.5 (25.0-35.0) pg MCHC 32.1 (31.0-37.0) g/dL RDW 12.9 (11.5-15.5) % Plt Count 314 (150-450) k/uL Neutrophils % 72 % Lymphocytes % 20 % Monocytes % 5 % Eosinophils % 1 % Basophils % 1 % Neutrophils # 7.0 (1.3-7.7) k/uL Lymphocytes # 2.0 (1.0-4.8) k/uL Monocytes # 0.5 (0-1.0) k/uL Eosinophils # 0.1 (0-0.7) k/uL Basophils # 0.1 (0-0.2) k/uL Sodium 136 L (137-145) mmol/L Potassium 4.5 (3.5-5.1) mmol/L Chloride 98 (98-107) mmol/L Carbon Dioxide 17 L (22-30) mmol/L Anion Gap 21 mmol/L BUN 20 (9-20) mg/dL Creatinine 0.71 (0.66-1.25) mg/dL Est GFR (CKD-EPI)AfAm >90 (>60 ml/min/1.73 sqM) Est GFR (CKD-EPI)NonAf >90 (>60 ml/min/1.73 sqM) Glucose 333 H (74-99) mg/dL Calcium 9.8 (8.4-10.2) mg/dL Total Bilirubin 0.9 (0.2-1.3) mg/dL AST 18 (17-59) U/L ALT 19 (4-49) U/L Alkaline Phosphatase 100 (38-126) U/L Total Protein 7.9 (6.3-8.2) g/dL Albumin 5.3 H (3.5-5.0) g/dL Acetone, Qual Positive (Negative) Disposition Clinical Impression: Diabetic ketoacidosis Disposition: ADMITTED IP TO THIS [facility] Time of Disposition: 16:58
[2020-01-24] MEDS ORDERED: ONDANSETRON 4 MG/2 ML VIAL IVP STA (16:27)
[2020-01-24 16:38] LABS: Basophils # (A) 0.1 k/uL (0-0.2); Basophils % (A) 1 %; Eosinophils # (A) 0.1 k/uL (0-0.7); Eosinophils % (A) 1 %; HCT 51.6 % (39.0-53.0); HGB 16.6 gm/dL (13.0-17.5); Lymphocytes % (A) 20 %; MCH 29.5 pg (25.0-35.0); MCHC 32.1 g/dL (31.0-37.0); MCV 91.8 fL (80.0-100.0); Mean Platelet Volume 7.3; Monocytes # (A) 0.5 k/uL (0-1.0); Monocytes % (A) 5 %; Neutrophils % (A) 72 %; Platelet Count 314 k/uL (150-450); RBC 5.62 m/uL (4.30-5.90); RDW 12.9 % (11.5-15.5); WBC 9.7 k/uL (3.8-10.6)
[2020-01-24 16:45] LABS: ALT 19 U/L (4-49); AST 18 U/L (17-59); African American GFR (CKD) >90 (>60 ml/min/1.73 sqM); Albumin 5.3 g/dL (3.5-5.0); Alkaline Phosphatase 100 U/L (38-126); Anion Gap 21 mmol/L; Blood Urea Nitrogen 20 mg/dL (9-20); Calcium 9.8 mg/dL (8.4-10.2); Carbon Dioxide 17 mmol/L (22-30); Chloride 98 mmol/L (98-107); Glucose 333 mg/dL (74-99); Non-African American GFR(CKD) >90 (>60 ml/min/1.73 sqM); Potassium 4.5 mmol/L (3.5-5.1); Sodium 136 mmol/L (137-145); Total Bilirubin 0.9 mg/dL (0.2-1.3); Total Protein 7.9 g/dL (6.3-8.2)
[2020-01-24] MEDS ORDERED: INSULIN REGULAR BOLUS (FROM DRIP BAG) IV ONE (17:00)
[2020-01-24] MEDS: INSULIN REGULAR 100 UNIT in SODIUM CHLORIDE 0.9% 100 ML IV SCH (17:59)
[2020-01-24] MEDS: SODIUM CHLORIDE 0.9% 1,000 ML IV SCH (18:00)
[2020-01-24 19:02] VITALS: RESP 16
[2020-01-24 20:16] LABS: Glucose,Whole Blood 132 mg/dL (75-99)
[2020-01-24 20:37] LABS: African American GFR (CKD) >90 (>60 ml/min/1.73 sqM); Anion Gap 13 mmol/L; Blood Urea Nitrogen 20 mg/dL (9-20); Carbon Dioxide 21 mmol/L (22-30); Chloride 102 mmol/L (98-107); Glucose 130 mg/dL (74-99); Non-African American GFR(CKD) >90 (>60 ml/min/1.73 sqM); Phosphorus 1.9 mg/dL (2.5-4.5); Potassium 3.8 mmol/L (3.5-5.1); Sodium 136 mmol/L (137-145)
[2020-01-24] MEDS ORDERED: D5-0.45% NACL WITH KCL 20MEQ/L 1,000 ML IV SCH (20:45)
[2020-01-24 21:19] LABS: Glucose,Whole Blood 82 mg/dL (75-99)
[2020-01-24 22:07] LABS: Glucose,Whole Blood 206 mg/dL (75-99)
[2020-01-25 00:02] LABS: Glucose,Whole Blood 266 mg/dL (75-99)
[2020-01-25 00:02] LABS: African American GFR (CKD) >90 (>60 ml/min/1.73 sqM); Anion Gap 9 mmol/L; Blood Urea Nitrogen 19 mg/dL (9-20); Carbon Dioxide 23 mmol/L (22-30); Chloride 100 mmol/L (98-107); Glucose 271 mg/dL (74-99); Non-African American GFR(CKD) >90 (>60 ml/min/1.73 sqM); Phosphorus 2.7 mg/dL (2.5-4.5); Potassium 4.1 mmol/L (3.5-5.1); Sodium 132 mmol/L (137-145)
[2020-01-25] MEDS: SODIUM CHLORIDE 0.9% 1,000 ML IV SCH (00:42)
[2020-01-25 01:01] LABS: Glucose,Whole Blood 301 mg/dL (75-99)
[2020-01-25 02:01] LABS: Glucose,Whole Blood 296 mg/dL (75-99)
[2020-01-25] MEDS: INSULIN REGULAR 100 UNIT in SODIUM CHLORIDE 0.9% 100 ML IV SCH (02:06)
[2020-01-25 03:02] LABS: Glucose,Whole Blood 234 mg/dL (75-99)
[2020-01-25 04:24] LABS: Glucose,Whole Blood 200 mg/dL (75-99)
[2020-01-25 06:09] LABS: Glucose,Whole Blood 170 mg/dL (75-99)
[2020-01-25] MEDS ORDERED: INSULIN LISPRO (For Pump) 100 UNIT/ML VIAL SQ-PUMP SCH ×2 (07:30→21:00)
[2020-01-25 08:39] VITALS: TEMP 97.9
[2020-01-25] MEDS ORDERED: INSULIN DETEMIR (LEVEMIR) 100 UNIT/ML SYR SQ SCH ×2 (09:00)
[2020-01-25] MEDS: INSULIN ASPART (NovoLOG) 100 UNIT/ML VIAL SQ SCH ×2 (11:13→12:45)
[2020-01-25 11:15] LABS: Glucose,Whole Blood 314 mg/dL (75-99)
[2020-01-25 12:26] LABS: Glucose,Whole Blood 231 mg/dL (75-99)
[2020-01-25 12:48] VITALS: BP 112/83; PULSE 98
[2020-01-25 14:31] VITALS: BMI 18.8
[2020-01-25] MEDS ORDERED: CHOLESTYRAMINE (WITH SUGAR) 4 GM PACKET PO SCH (16:00)
[2020-01-25] MEDS ORDERED: LITHIUM CARBONATE 300 MG CAP PO SCH (21:00)
[2020-01-25] MEDS ORDERED: traZODone HCL 100 MG TAB PO SCH (21:00)
[2020-01-25] MEDS ORDERED: busPIRone HCl 10 MG TAB PO SCH (21:00)
[2020-01-25] MEDS ORDERED: GABAPENTIN 300 MG CAP PO SCH (21:00)
[2020-01-26] MEDS ORDERED: VENLAFAXINE HCL ER 150 MG CAP PO SCH (09:00)
--- NOTE | 2020-01-26 17:35 | HP ---
HISTORY AND PHYSICAL DATE OF SERVICE: 01/24/2020. CHIEF COMPLAINT: Dehydration and diabetic ketoacidosis. HISTORY OF PRESENT ILLNESS: This is another of many admissions for this 24-year-old noncompliant gentleman with type 1 insulin-dependent diabetes mellitus. For any one of a number reasons, he stops taking his insulin. States he did not this time. Last time was in the last week. He had been drinking alcohol. REVIEW OF SYSTEMS: He has had no neurologic problems, difficulty with vision or hearing, chest pain, shortness of breath, abdominal pain, vomiting, melena, hematochezia, jaundice, renal failure, etc. Past medical history, family history, personal and social histories can all be found in his previous admitting discharge summaries and otherwise unchanged. He has been on the psych unit before for depression. PHYSICAL EXAMINATION: Blood pressure is 118/64 with a pulse of 101, respirations of 36. He is afebrile. In general appeared to be a tall, slender, slightly dehydrated. Head, ears, eyes, nose, mouth, and throat were normal except for dry mucous membranes. Neck is supple. Chest is clear. Cardiac exam is normal and the abdomen is soft, nontender. Extremities are normal. Neurologically, he is intact. IMPRESSION: 1. DKA. 2. Personality disorder. 3. Depression. PLAN: 1. IV fluids. 2. DKA protocol. 3. Placed back on his usual insulin management. MMSHANEL / ALDEN: [id number] /
--- NOTE | 2020-01-26 18:19 | DS ---
DISCHARGE SUMMARY DATE OF DISCHARGE: 01/25/2020 CHIEF COMPLAINT: DKA. HISTORY OF PRESENT ILLNESS AND PHYSICAL EXAMINATION: Details of this man's history and physical can be found in the initial workup. LABORATORY STUDIES: While he was in the hospital he had laboratory studies, details of which can be found in the laboratory section of his chart. COURSE IN THE HOSPITAL: After admission he was placed on bedrest, started on intravenous fluids and his anion gap was closed. DKA was brought under control and he was placed back on his usual medications, including his usual insulin dose, and it was felt that he could be discharged. He will follow up in the office. FINAL DIAGNOSES: 1. Diabetic ketoacidosis. 2. Dehydration. 3. Personality disorder. OPERATIONS: None. CONSULTATIONS: None. He is improved. GRACE / ALDEN: [id number] /
== END 2020-01-25 14:27 | disposition home or self-care (01) ==
LOC: EC 14:59 → 3SCARD 17:00 → INTOOBSV 17:00 → 3SCARD 18:13 → UNDODISIN 01-25 14:27
PROVIDERS: ADMIT Family Medicine; ATTEND Family Medicine
DX: E10.10 Type 1 diabetes mellitus with ketoacidosis without coma (principal); E86.0 Dehydration; E10.42 Type 1 diabetes mellitus with diabetic polyneuropathy; L30.9 Dermatitis, unspecified; F60.9 Personality disorder, unspecified; F41.9 Anxiety disorder, unspecified; F32.9 Major depressive disorder, single episode, unspecified; J45.909 Unspecified asthma, uncomplicated; F17.200 Nicotine dependence, unspecified, uncomplicated; Z91.128 Patient's intentional underdosing of medication regimen for other reason; Z90.89 Acquired absence of other organs; Z82.49 Family history of ischemic heart disease and other diseases of the circulatory system; Z83.438 Family history of other disorder of lipoprotein metabolism and other lipidemia; Z82.3 Family history of stroke; Z79.4 Long term (current) use of insulin; Z79.899 Other long term (current) drug therapy
CPT/HCPCS: 96361; 96374; 99285; 36415; 93005; 80051; 80053; 82565; 82009; 84100; 82947; 84520; 85025; G0378 ×2; J2405

== ENCOUNTER 2020-03-10 14:00 | Emergency (ER) | payer OTHER ==
[2020-03-10 14:34] LABS: Glucose,Whole Blood 390 mg/dL (75-99)
[2020-03-10] MEDS ORDERED: SODIUM CHLORIDE 0.9% 2,000 ML IV STA (14:51)
[2020-03-10] MEDS ORDERED: diphenhydrAMINE 50 MG/ML 1 ML VIAL IVP STA (14:51)
[2020-03-10] MEDS ORDERED: METOCLOPRAMIDE 5 MG/ML 2 ML VIAL IVP STA (14:51)
--- NOTE | 2020-03-10 14:54 | ED ---
Abdominal Pain HPI - General Chief Complaint: Abdominal Pain Stated Complaint: Diabetes Issue Time Seen by Provider: 03/10/20 14:45 Source: patient Mode of arrival: ambulatory Limitations: no limitations - History of Present Illness Initial Comments: 24-year-old male patient with past medical history significant for type 1 diabetes mellitus with frequent DKA episodes and gastroparesis presents to the emergency department today for evaluation of abdominal pain. Patient states that he has been having increase of bowel pain for the last couple of days. Patient states that he eats heavy meals he does have vomiting. Denies any fever or chills. Denies constipation or diarrhea. Patient states that he has been out of his bicycle are insulin for the last several days due to being unable to follow-up with his primary care physician. States he does take 10 units of rapid acting with meals and has been taking that. Denies history of abdominal surgery. Denies any hematochezia, melena, hematemesis. Patient denies any recent rash, cough, shortness of breath, chest pain, back pain, numbness, tingling, dizziness, weakness, hematuria, dysuria, urinary urgency, urinary frequency, headache, visual changes, or any other complaints. - Related Data Home Medications Medication Instructions Recorded Confirmed Insulin Glargine,Hum.rec.anlog 40 units SQ DAILY 09/01/19 01/24/20 [Basaglar Kwikpen U-100] Insulin Lispro [Admelog] 10 units SQ AC-TID 09/01/19 01/24/20 Venlafaxine HCl [Effexor XR] 150 mg PO DAILY 09/01/19 01/24/20 Cholestyramine (with Sugar) 4 gm PO TID 12/04/19 01/24/20 [Questran Packet] [place] Carbonate 300 mg PO HS 12/04/19 01/24/20 busPIRone HCL [Buspar] 30 mg PO BID 12/04/19 01/24/20 Insulin Lispro [Admelog] 6 units SQ HS 12/15/19 01/24/20 Previous Rx's Medication Instructions Recorded Gabapentin [Neurontin] 600 mg PO BID 30 Days cap 09/01/19 traZODone HCL [Desyrel] 200 mg PO HS 30 Days tab 09/01/19 Insulin Glargine,Hum.rec.anlog 40 unit SQ DAILY #4 pen 03/10/20 [Brianna Lorenzo U-100] Allergies Allergy/AdvReac Type Severity Reaction Status Date / Time No Known Allergies Allergy Verified 03/10/20 14:19 Review of Systems ROS Statement: Those systems with pertinent positive or pertinent negative responses have been documented in the HPI. ROS Other: All systems not noted in ROS Statement are negative. Past Medical History Past Medical History: Asthma, Diabetes Mellitus, Skin Disorder Additional Past Medical History / Comment(s): IDDM type I, neuropathy bilateral feet, DKAs, eczema. History of Any Multi-Drug Resistant Organisms: None Reported Past Surgical History: Adenoidectomy Additional Past Surgical History / Comment(s): 2002 Past Anesthesia/Blood Transfusion Reactions: No Reported Reaction Past Psychological History: Anxiety, Depression Smoking Status: Current some day smoker Past Alcohol Use History: Occasional Past Drug Use History: Marijuana - Past Family History Mother Family Medical History: CVA/TIA Father Family Medical History: Hyperlipidemia, Hypertension Additional Family Medical History / Comment(s): . General Exam Limitations: no limitations General appearance: alert, in no apparent distress, other (Physical well- developed, well-nourished adult male patient in no acute distress. Vital signs upon presentation are temperature 98.0F, pulse 100, respirations 20, blood pressure 94/60, pulse ox 99% on room air.) Eye exam: Present: normal appearance, PERRL, EOMI. Absent: scleral icterus, conjunctival injection, periorbital swelling ENT exam: Present: normal exam, normal oropharynx, mucous membranes moist Respiratory exam: Present: normal lung sounds bilaterally. Absent: respiratory distress, wheezes, rales, rhonchi, stridor Cardiovascular Exam: Present: regular rate, normal rhythm, normal heart sounds. Absent: systolic murmur, diastolic murmur, rubs, gallop, clicks GI/Abdominal exam: Present: soft, normal bowel sounds. Absent: distended, tenderness, guarding, rebound, rigid Neurological exam: Present: alert, oriented X3, CN II-XII intact Psychiatric exam: Present: normal affect, normal mood Skin exam: Present: warm, dry, intact, normal color. Absent: rash Course Vital Signs 03/10/20 03/10/20 14:17 16:30 Temperature 98.0 F 97.7 F Pulse Rate 100 79 Respiratory 20 18 Rate Blood Pressure 94/60 106/72 O2 Sat by Pulse 99 99 Oximetry Medical Decision Making - Medical Decision Making 24-year-old male patient presents to the emergency department today for evaluation of abdominal pain. Patient is also reporting recently elevated blood sugars due to being out of his basaglar pens. Patient reports abdominal discomfort for the last couple of days. States he is able to eat and drink without difficulty. Denies constipation or diarrhea. Labs reviewed and did reveal elevated blood sugar in the 300s. Urinalysis did show positive for glucose and ketones. Acetone was positive anion gap is 8. This is more consistent with dehydration. He is given 2 L of IV fluids. He has been resting comfortably while in the emergency department. No vomiting. He'll be discharged with prescription for his basaglar. This is sent to this pharmacy so he is able to pick it up immediately. He'll be discharged to follow-up with his primary care physician for recheck in 1-2 days. Return parameters were discu ssed in detail. He verbalizes understanding and agrees with this plan. - Lab Data Result diagrams: 03/10/20 15:03 03/10/20 15:03 Lab Results 03/10/20 03/10/20 03/10/20 Range/Units 14:33 15:03 15:03 WBC 7.6 (3.8-10.6) k/uL RBC 5.30 (4.30-5.90) m/uL Hgb 16.4 (13.0-17.5) gm/dL Hct 48.4 (39.0-53.0) % MCV 91.5 (80.0-100.0) fL MCH 30.9 (25.0-35.0) pg MCHC 33.8 (31.0-37.0) g/dL RDW 12.6 (11.5-15.5) % Plt Count 258 (150-450) k/uL Neutrophils % 55 % Lymphocytes % 31 % Monocytes % 6 % Eosinophils % 5 % Basophils % 1 % Neutrophils # 4.2 (1.3-7.7) k/uL Lymphocytes # 2.4 (1.0-4.8) k/uL Monocytes # 0.4 (0-1.0) k/uL Eosinophils # 0.4 (0-0.7) k/uL Basophils # 0.1 (0-0.2) k/uL Sodium (137-145) mmol/L Potassium (3.5-5.1) mmol/L Chloride (98-107) mmol/L Carbon Dioxide (22-30) mmol/L Anion Gap mmol/L BUN (9-20) mg/dL Creatinine (0.66-1.25) mg/dL Est GFR (CKD-EPI)AfAm (>60 ml/min/1.73 sqM) Est GFR (CKD-EPI)NonAf (>60 ml/min/1.73 sqM) Glucose (74-99) mg/dL POC Glucose (mg/dL) 390 H (75-99) mg/dL POC Glu Manager Transport ID Kourtney Gamez Calcium (8.4-10.2) mg/dL Total Bilirubin (0.2-1.3) mg/dL AST (17-59) U/L ALT (4-49) U/L Alkaline Phosphatase (38-126) U/L Total Protein (6.3-8.2) g/dL Albumin (3.5-5.0) g/dL Amylase (30-110) U/L Lipase (23-300) U/L Urine Color Yellow Urine Appearance Clear (Clear) Urine pH 5.5 (5.0-8.0) Ur Specific [place] 1.050 H (1.001-1.035) Urine Protein 1+ H (Negative) Urine Glucose (UA) 4+ H (Negative) Urine Ketones 3+ H (Negative) Urine Blood Negative (Negative) Urine Nitrite Negative (Negative) Urine Bilirubin Negative (Negative) Urine Urobilinogen <2.0 (<2.0) mg/dL Ur Leukocyte Esterase Negative (Negative) Urine RBC <1 (0-5) /hpf Urine WBC 2 (0-5) /hpf Urine Mucus Rare H (None) /hpf Acetone, Qual (Negative) 03/10/20 Range/Units 15:03 WBC (3.8-10.6) k/uL RBC (4.30-5.90) m/uL Hgb (13.0-17.5) gm/dL Hct (39.0-53.0) % MCV (80.0-100.0) fL MCH (25.0-35.0) pg MCHC (31.0-37.0) g/dL RDW (11.5-15.5) % Plt Count (150-450) k/uL Neutrophils % % Lymphocytes % % Monocytes % % Eosinophils % % Basophils % % Neutrophils # (1.3-7.7) k/uL Lymphocytes # (1.0-4.8) k/uL Monocytes # (0-1.0) k/uL Eosinophils # (0-0.7) k/uL Basophils # (0-0.2) k/uL Sodium 134 L (137-145) mmol/L Potassium 4.3 (3.5-5.1) mmol/L Chloride 98 (98-107) mmol/L Carbon Dioxide 28 (22-30) mmol/L Anion Gap 8 mmol/L BUN 14 (9-20) mg/dL Creatinine 0.65 L (0.66-1.25) mg/dL Est GFR (CKD-EPI)AfAm >90 (>60 ml/min/1.73 sqM) Est GFR (CKD-EPI)NonAf >90 (>60 ml/min/1.73 sqM) Glucose 381 H (74-99) mg/dL POC Glucose (mg/dL) (75-99) mg/dL POC Glu Manager Transport ID Calcium 9.1 (8.4-10.2) mg/dL Total Bilirubin 0.7 (0.2-1.3) mg/dL AST 15 L (17-59) U/L ALT 12 (4-49) U/L Alkaline Phosphatase 84 (38-126) U/L Total Protein 7.2 (6.3-8.2) g/dL Albumin 4.6 (3.5-5.0) g/dL Amylase 46 (30-110) U/L Lipase 53 (23-300) U/L Urine Color Urine Appearance (Clear) Urine pH (5.0-8.0) Ur Specific [place] (1.001-1.035) Urine Protein (Negative) Urine Glucose (UA) (Negative) Urine Ketones (Negative) Urine Blood (Negative) Urine Nitrite (Negative) Urine Bilirubin (Negative) Urine Urobilinogen (<2.0) mg/dL Ur Leukocyte Esterase (Negative) Urine RBC (0-5) /hpf Urine WBC (0-5) /hpf Urine Mucus (None) /hpf Acetone, Qual Positive (Negative) Disposition Clinical Impression: Abdominal pain, Hyperglycemia due to diabetes mellitus Disposition: HOME SELF-CARE Condition: Good Instructions (If sedation given, give patient instructions): Abdominal Pain (ED ), Diabetic Hyperglycemia (ED) Additional Instructions: Take medications as directed. Follow-up through primary care physician for recheck in 1-2 days. Return to the emergency department immediately for any new, worsening, or concerning symptoms. Prescriptions: Insulin Glargine,Hum.rec.anlog [Abigailaglwilli Lorenzo U-100] 40 unit SQ DAILY #4 pen Is patient prescribed a controlled substance at d/c from ED?: No Referrals: Brown Valenzuela MD [Primary Care Provider] - 1-2 days Time of Disposition: 16:02
[2020-03-10 15:13] LABS: Basophils # (A) 0.1 k/uL (0-0.2); Basophils % (A) 1 %; Eosinophils # (A) 0.4 k/uL (0-0.7); Eosinophils % (A) 5 %; HCT 48.4 % (39.0-53.0); HGB 16.4 gm/dL (13.0-17.5); Lymphocytes # (A) 2.4 k/uL (1.0-4.8); Lymphocytes % (A) 31 %; MCH 30.9 pg (25.0-35.0); MCHC 33.8 g/dL (31.0-37.0); MCV 91.5 fL (80.0-100.0); Monocytes # (A) 0.4 k/uL (0-1.0); Monocytes % (A) 6 %; Neutrophils # (A) 4.2 k/uL (1.3-7.7); Neutrophils % (A) 55 %; Platelet Count 258 k/uL (150-450); RDW 12.6 % (11.5-15.5); WBC 7.6 k/uL (3.8-10.6)
[2020-03-10 15:15] LABS: Appearance,Urine Clear (Clear); Bilirubin,Urine Negative (Negative); Blood,Urine Negative (Negative); Color,Urine Yellow; Glucose,Urine (UA) 4+ (Negative); Leukocyte Esterase,Urine Negative (Negative); Mucus,Urine Rare /hpf; Nitrite,Urine Negative (Negative); PH, Urine 5.5 (5.0-8.0); Protein,Urine 1+ (Negative); RBC,Urine <1 /hpf (0-5); Urobilinogen,Urine <2.0 mg/dL (<2.0); WBC,Urine 2 /hpf (0-5)
[2020-03-10 15:20] LABS: Ketones,Urine 3+ (Negative)
[2020-03-10 15:21] LABS: ALT 12 U/L (4-49); AST 15 U/L (17-59); African American GFR (CKD) >90 (>60 ml/min/1.73 sqM); Albumin 4.6 g/dL (3.5-5.0); Alkaline Phosphatase 84 U/L (38-126); Amylase 46 U/L (30-110); Anion Gap 8 mmol/L; Blood Urea Nitrogen 14 mg/dL (9-20); Calcium 9.1 mg/dL (8.4-10.2); Carbon Dioxide 28 mmol/L (22-30); Chloride 98 mmol/L (98-107); Glucose 381 mg/dL (74-99); Non-African American GFR(CKD) >90 (>60 ml/min/1.73 sqM); Potassium 4.3 mmol/L (3.5-5.1); Sodium 134 mmol/L (137-145); Total Bilirubin 0.7 mg/dL (0.2-1.3); Total Protein 7.2 g/dL (6.3-8.2)
[2020-03-10 16:30] VITALS: BP 106/72; PULSE 79; RESP 18; TEMP 97.7
== END 2020-03-10 16:30 | disposition home or self-care (01) ==
LOC: EC 14:00
DX: E10.65 Type 1 diabetes mellitus with hyperglycemia (principal); R10.9 Unspecified abdominal pain; F41.9 Anxiety disorder, unspecified; F32.9 Major depressive disorder, single episode, unspecified; F17.200 Nicotine dependence, unspecified, uncomplicated; Z79.899 Other long term (current) drug therapy; Z79.4 Long term (current) use of insulin
CPT/HCPCS: 36415; 80053; 82150; 82009; 83690; 85025; 81001; 99284; 96374; 96375; 96361; J1200; J2765

== ENCOUNTER 2020-03-18 15:16 | Emergency (ER) | payer OTHER ==
[2020-03-18 15:21] VITALS: RESP 18
[2020-03-18 15:28] LABS: Glucose,Whole Blood 278 mg/dL (75-99)
[2020-03-18] MEDS ORDERED: SODIUM CHLORIDE 0.9% 1,000 ML IV STA (15:34)
[2020-03-18] MEDS ORDERED: MORPHINE SULFATE 2 MG/ML SYRINGE IVP STA (15:34)
--- NOTE | 2020-03-18 15:36 | ED ---
General Adult HPI - General Chief complaint: Abdominal Pain Stated complaint: nausea/dizziness Time Seen by Provider: 03/18/20 15:19 Source: patient, RN notes reviewed, old records reviewed Mode of arrival: ambulatory Limitations: no limitations - History of Present Illness Initial comments: 24year-old male presenting for evaluation of abdominal pain nausea vomiting. Patient states he's had abdominal pain over the past one week and was seen at this institution with abdominal pain, stated he was feeling muchsomewhat better however today he began vomiting again with recurrent abdominal pain. He has been taking his long-acting insulin but not his short acting insulin. He has not had anything to eat or drink today. He denies fever. Pain is epigastric and associated with vomiting. - Related Data Home Medications Medication Instructions Recorded Confirmed Insulin Glargine,Hum.rec.anlog 40 units SQ DAILY 09/01/19 01/24/20 [Basaglar Kwikpen U-100] Insulin Lispro [Admelog] 10 units SQ AC-TID 09/01/19 01/24/20 Venlafaxine HCl [Effexor XR] 150 mg PO DAILY 09/01/19 01/24/20 Cholestyramine (with Sugar) 4 gm PO TID 12/04/19 01/24/20 [Questran Packet] [place] Carbonate 300 mg PO HS 12/04/19 01/24/20 busPIRone HCL [Buspar] 30 mg PO BID 12/04/19 01/24/20 Insulin Lispro [Admelog] 6 units SQ HS 12/15/19 01/24/20 Previous Rx's Medication Instructions Recorded Gabapentin [Neurontin] 600 mg PO BID 30 Days cap 09/01/19 traZODone HCL [Desyrel] 200 mg PO HS 30 Days tab 09/01/19 Insulin Glargine,Hum.rec.anlog 40 unit SQ DAILY #4 pen 03/10/20 [Basaglar Kwikpen U-100] Allergies Allergy/AdvReac Type Severity Reaction Status Date / Time No Known Allergies Allergy Verified 03/18/20 15:20 Review of Systems ROS Statement: Those systems with pertinent positive or pertinent negative responses have been documented in the HPI. ROS Other: All systems not noted in ROS Statement are negative. Past Medical History Past Medical History: Asthma, Diabetes Mellitus, Skin Disorder Additional Past Medical History / Comment(s): IDDM type I, neuropathy bilateral feet, DKAs, eczema. History of Any Multi-Drug Resistant Organisms: None Reported Past Surgical History: Adenoidectomy Additional Past Surgical History / Comment(s): 2002 Past Anesthesia/Blood Transfusion Reactions: No Reported Reaction Past Psychological History: Anxiety, Depression Smoking Status: Current some day smoker Past Alcohol Use History: Occasional Past Drug Use History: Marijuana - Past Family History Mother Family Medical History: CVA/TIA Father Family Medical History: Hyperlipidemia, Hypertension Additional Family Medical History / Comment(s): . General Exam Limitations: no limitations General appearance: alert, in no apparent distress Head exam: Present: atraumatic, normocephalic Eye exam: Present: normal appearance, PERRL ENT exam: Present: mucous membranes dry Neck exam: Present: normal inspection. Absent: tenderness, meningismus Respiratory exam: Present: normal lung sounds bilaterally. Absent: respiratory distress, wheezes Cardiovascular Exam: Present: normal rhythm, tachycardia GI/Abdominal exam: Present: soft, tenderness (epigastric tenderness, mild generalized tenderness). Absent: distended, guarding, rebound Extremities exam: Present: normal inspection, normal capillary refill. Absent: pedal edema Neurological exam: Present: alert, oriented X3 Psychiatric exam: Present: normal affect, normal mood Skin exam: Present: warm, dry, intact. Absent: cyanosis, diaphoretic Course Vital Signs 03/18/20 15:18 Temperature 98.5 F Pulse Rate 115 H Respiratory 18 Rate Blood Pressure 96/58 O2 Sat by Pulse 100 Oximetry EKG Findings - EKG Comments: EKG Findings:: EKG: Sinus tachycardia, right atrial enlargement, right axis, rate of 112, DC interval 144, QRS duration 92, QTC 453, no ST segment elevation Medical Decision Making - Medical Decision Making 24-year-old male presenting for evaluation of vomiting and abdominal pain. Patient does appear dehydrated, history of type 1 diabetes. Laboratory studies reveal normal white blood cell count, hemoglobin has increased likely related to hemoconcentration. Patient has no signs of DKA, acetone is negative, he is not acidotic, he has a normal anion gap. He feels much better after 2 L of IV hydration, Zofran, and 2 mg morphine. no vomiting while in the emergency department. He does have good follow-up as an outpatient. I suspect this is predominantly related to dehydration. He will return with worsening or changing symptoms. - Lab Data Result diagrams: 03/18/20 15:37 03/18/20 15:37 Lab Results 03/18/20 03/18/20 03/18/20 Range/Units 15:26 15:37 15:37 WBC 9.1 (3.8-10.6) k/uL RBC 6.00 H (4.30-5.90) m/uL Hgb 18.3 H (13.0-17.5) gm/dL Hct 54.5 H (39.0-53.0) % MCV 90.8 (80.0-100.0) fL MCH 30.4 (25.0-35.0) pg MCHC 33.5 (31.0-37.0) g/dL RDW 12.0 (11.5-15.5) % Plt Count 355 (150-450) k/uL Neutrophils % 64 % Lymphocytes % 26 % Monocytes % 5 % Eosinophils % 3 % Basophils % 2 % Neutrophils # 5.8 (1.3-7.7) k/uL Lymphocytes # 2.4 (1.0-4.8) k/uL Monocytes # 0.4 (0-1.0) k/uL Eosinophils # 0.3 (0-0.7) k/uL Basophils # 0.2 (0-0.2) k/uL Sodium 132 L (137-145) mmol/L Potassium 5.1 (3.5-5.1) mmol/L Chloride 91 L (98-107) mmol/L Carbon Dioxide 30 (22-30) mmol/L Anion Gap 11 mmol/L BUN 34 H (9-20) mg/dL Creatinine 0.84 (0.66-1.25) mg/dL Est GFR (CKD-EPI)AfAm >90 (>60 ml/min/1.73 sqM) Est GFR (CKD-EPI)NonAf >90 (>60 ml/min/1.73 sqM) Glucose 284 H (74-99) mg/dL POC Glucose (mg/dL) 278 H (75-99) mg/dL POC Glu Counselor Education Professor ID JeremieyolisRadha bejarano Plasma Lactic Acid Len (0.7-2.0) mmol/L Calcium 9.9 (8.4-10.2) mg/dL Magnesium 2.2 (1.6-2.3) mg/dL Total Bilirubin 1.3 (0.2-1.3) mg/dL AST 17 (17-59) U/L ALT 19 (4-49) U/L Alkaline Phosphatase 93 (38-126) U/L Total Protein 8.0 (6.3-8.2) g/dL Albumin 5.0 (3.5-5.0) g/dL Acetone, Qual Negative (Negative) 03/18/20 Range/Units 15:37 WBC (3.8-10.6) k/uL RBC (4.30-5.90) m/uL Hgb (13.0-17.5) gm/dL Hct (39.0-53.0) % MCV (80.0-100.0) fL MCH (25.0-35.0) pg MCHC (31.0-37.0) g/dL RDW (11.5-15.5) % Plt Count (150-450) k/uL Neutrophils % % Lymphocytes % % Monocytes % % Eosinophils % % Basophils % % Neutrophils # (1.3-7.7) k/uL Lymphocytes # (1.0-4.8) k/uL Monocytes # (0-1.0) k/uL Eosinophils # (0-0.7) k/uL Basophils # (0-0.2) k/uL Sodium (137-145) mmol/L Potassium (3.5-5.1) mmol/L Chloride (98-107) mmol/L Carbon Dioxide (22-30) mmol/L Anion Gap mmol/L BUN (9-20) mg/dL Creatinine (0.66-1.25) mg/dL Est GFR (CKD-EPI)AfAm (>60 ml/min/1.73 sqM) Est GFR (CKD-EPI)NonAf (>60 ml/min/1.73 sqM) Glucose (74-99) mg/dL POC Glucose (mg/dL) (75-99) mg/dL POC Glu Counselor Education Professor ID Plasma Lactic Acid Len 2.4 H* (0.7-2.0) mmol/L Calcium (8.4-10.2) mg/dL Magnesium (1.6-2.3) mg/dL Total Bilirubin (0.2-1.3) mg/dL AST (17-59) U/L ALT (4-49) U/L Alkaline Phosphatase (38-126) U/L Total Protein (6.3-8.2) g/dL Albumin (3.5-5.0) g/dL Acetone, Qual (Negative) Disposition Clinical Impression: Vomiting, Abdominal pain, IDDM (insulin dependent diabetes mellitus) Disposition: HOME SELF-CARE Condition: Good Instructions (If sedation given, give patient instructions): Abdominal Pain (ED), Dehydration (ED) Is patient prescribed a controlled substance at d/c from ED?: No Referrals: Brown Valenzuela MD [Primary Care Provider] - 1-2 days Time of Disposition: 16:59
[2020-03-18 15:53] LABS: Basophils # (A) 0.2 k/uL (0-0.2); Basophils % (A) 2 %; Eosinophils # (A) 0.3 k/uL (0-0.7); Eosinophils % (A) 3 %; HCT 54.5 % (39.0-53.0); HGB 18.3 gm/dL (13.0-17.5); Lymphocytes # (A) 2.4 k/uL (1.0-4.8); Lymphocytes % (A) 26 %; MCH 30.4 pg (25.0-35.0); MCHC 33.5 g/dL (31.0-37.0); MCV 90.8 fL (80.0-100.0); Mean Platelet Volume 7.1; Monocytes # (A) 0.4 k/uL (0-1.0); Monocytes % (A) 5 %; Neutrophils # (A) 5.8 k/uL (1.3-7.7); Neutrophils % (A) 64 %; Platelet Count 355 k/uL (150-450); WBC 9.1 k/uL (3.8-10.6)
[2020-03-18] MEDS ORDERED: ONDANSETRON 4 MG/2 ML VIAL IVP STA (15:54)
[2020-03-18 16:05] LABS: ALT 19 U/L (4-49); AST 17 U/L (17-59); African American GFR (CKD) >90 (>60 ml/min/1.73 sqM); Alkaline Phosphatase 93 U/L (38-126); Anion Gap 11 mmol/L; Blood Urea Nitrogen 34 mg/dL (9-20); Calcium 9.9 mg/dL (8.4-10.2); Carbon Dioxide 30 mmol/L (22-30); Chloride 91 mmol/L (98-107); Glucose 284 mg/dL (74-99); Magnesium 2.2 mg/dL (1.6-2.3); Non-African American GFR(CKD) >90 (>60 ml/min/1.73 sqM); Potassium 5.1 mmol/L (3.5-5.1); Sodium 132 mmol/L (137-145); Total Bilirubin 1.3 mg/dL (0.2-1.3)
[2020-03-18] MEDS ORDERED: SODIUM CHLORIDE 0.9% 1,000 ML IV ONE (16:16)
[2020-03-18 17:12] VITALS: BP 110/79; PULSE 90; TEMP 97.2
== END 2020-03-18 17:05 | disposition home or self-care (01) ==
LOC: EC 15:16
DX: R10.13 Epigastric pain (principal); R11.10 Vomiting, unspecified; F41.9 Anxiety disorder, unspecified; F32.9 Major depressive disorder, single episode, unspecified; E10.40 Type 1 diabetes mellitus with diabetic neuropathy, unspecified; F17.200 Nicotine dependence, unspecified, uncomplicated; Z79.4 Long term (current) use of insulin
CPT/HCPCS: 36415; 93005; 80053; 82009; 83605; 83735; 85025; 99284; 96374; 96375; 96361 ×2; J2405; J2270

== ENCOUNTER 2020-04-05 16:04 | Observation (INO) | payer OTHER ==
[2020-04-05 16:30] LABS: Glucose,Whole Blood 482 mg/dL (75-99)
[2020-04-05 16:42] LABS: Appearance,Urine Clear (Clear); Bilirubin,Urine Negative (Negative); Blood,Urine Negative (Negative); Color,Urine Colorless; Glucose,Urine (UA) 4+ (Negative); Leukocyte Esterase,Urine Negative (Negative); Nitrite,Urine Negative (Negative); Protein,Urine Negative (Negative); Specific Gravity,Urine 1.037 (1.001-1.035); Urobilinogen,Urine <2.0 mg/dL (<2.0)
[2020-04-05 17:01] LABS: Ketones,Urine 3+ (Negative)
[2020-04-05 17:08] LABS: ALT 17 U/L (4-49); AST 16 U/L (17-59); African American GFR (CKD) >90 (>60 ml/min/1.73 sqM); Albumin 4.3 g/dL (3.5-5.0); Alkaline Phosphatase 81 U/L (38-126); Anion Gap 13 mmol/L; Blood Urea Nitrogen 14 mg/dL (9-20); Calcium 8.6 mg/dL (8.4-10.2); Carbon Dioxide 21 mmol/L (22-30); Chloride 98 mmol/L (98-107); Non-African American GFR(CKD) >90 (>60 ml/min/1.73 sqM); Potassium 4.9 mmol/L (3.5-5.1); Sodium 132 mmol/L (137-145); Total Bilirubin 0.6 mg/dL (0.2-1.3); Total Protein 6.8 g/dL (6.3-8.2)
[2020-04-05 17:12] LABS: Basophils # (A) 0.1 k/uL (0-0.2); Basophils % (A) 1 %; Eosinophils # (A) 0.6 k/uL (0-0.7); Eosinophils % (A) 7 %; HCT 44.4 % (39.0-53.0); Lymphocytes # (A) 2.5 k/uL (1.0-4.8); Lymphocytes % (A) 28 %; MCH 30.6 pg (25.0-35.0); MCHC 33.9 g/dL (31.0-37.0); MCV 90.4 fL (80.0-100.0); Mean Platelet Volume 7.2; Monocytes # (A) 0.5 k/uL (0-1.0); Monocytes % (A) 6 %; Neutrophils % (A) 56 %; Platelet Count 264 k/uL (150-450); RBC 4.91 m/uL (4.30-5.90); RDW 12.9 % (11.5-15.5); WBC 8.9 k/uL (3.8-10.6)
[2020-04-05 17:15] LABS: Glucose 513 mg/dL (74-99)
[2020-04-05] MEDS ORDERED: INSULIN REGULAR 100 UNIT/ML VIAL SQ ONE (17:15)
[2020-04-05] MEDS ORDERED: SODIUM CHLORIDE 0.9% 2,000 ML IV ONE (17:15)
--- NOTE | 2020-04-05 17:15 | XR ---
EXAMINATION TYPE: XR KUB DATE OF EXAM: 04/05/2020 COMPARISON: NONE HISTORY: Abdominal pain 09/25/2017 TECHNIQUE: 2 views upright FINDINGS: There is no sign of intestinal obstruction or pneumoperitoneum. Fecal pattern is normal. Th ere is no sign of a mass. Lung bases are clear. There are no pathologic calcifications. IMPRESSION: Nonacute abdomen.
[2020-04-05] MEDS ORDERED: INSULIN REGULAR 100 UNIT in SODIUM CHLORIDE 0.9% 100 ML IV SCH (18:00)
[2020-04-05 18:31] LABS: Glucose,Whole Blood 360 mg/dL (75-99)
[2020-04-05] MEDS ORDERED: SODIUM CHLORIDE 0.9% 1,000 ML IV SCH (19:15)
[2020-04-05] MEDS ORDERED: D5-0.45% NACL WITH KCL 20MEQ/L 1,000 ML IV SCH (19:15)
--- NOTE | 2020-04-05 19:28 | ED ---
General Adult HPI - General Chief complaint: Nausea/Vomiting/Diarrhea Stated complaint: abd pain, diarrhea Time Seen by Provider: 04/05/20 16:38 Source: patient, RN notes reviewed, old records reviewed Mode of arrival: ambulatory Limitations: no limitations - History of Present Illness Initial comments: 24-year-old male patient to ED for abdominal pain nausea vomiting patient's type I diabetic, uncontrolled controlled blood sugars. Systemic: Pt denies fatigue, fever/chills, rash. Pt denies weakness, night sweats, weight loss. Neuro: Pt denies headache, visual disturbances, syncope or pre-syncope. HEENT: Pt denies ocular discharge or irritation, otalgia, rhinorrhea, pharyngitis or notable lymphadenopathy. Cardiopulmonary: Pt denies chest pain, SOB, heart palpitations, dyspnea on exertion. : Pt denies dysuria, burning w/ urination, frequency/urgency. Denies new onset urinary or bowel incontinence. MSK: Pt denies myalgia, loss of strength or function in extremities. Neuro: Pt denies new onset weakness, paresthesias. - Related Data Home Medications Medication Instructions Recorded Confirmed Insulin Lispro [Admelog] 10 units SQ AC-TID 09/01/19 04/05/20 Insulin Lispro [Admelog] See Protocol SQ ACHS 12/15/19 04/05/20 Insulin Glargine,Hum.rec.anlog 40 unit SQ DAILY 04/05/20 04/05/20 [Lantus Solostar] Previous Rx's Medication Instructions Recorded Gabapentin [Neurontin] 600 mg PO BID 30 Days cap 09/01/19 traZODone HCL [Desyrel] 200 mg PO HS 30 Days tab 09/01/19 Allergies Allergy/AdvReac Type Severity Reaction Status Date / Time No Known Allergies Allergy Verified 04/05/20 17:57 Review of Systems ROS Statement: Those systems with pertinent positive or pertinent negative responses have been documented in the HPI. ROS Other: All systems not noted in ROS Statement are negative. Past Medical History Past Medical History: Asthma, Diabetes Mellitus, Skin Disorder Additional Past Medical History / Comment(s): IDDM type I, neuropathy bilateral feet, DKAs, eczema. History of Any Multi-Drug Resistant Organisms: None Reported Past Surgical History: Adenoidectomy Additional Past Surgical History / Comment(s): 2002 Past Anesthesia/Blood Transfusion Reactions: No Reported Reaction Past Psychological History: Anxiety, Depression Smoking Status: Current some day smoker Past Alcohol Use History: Occasional Past Drug Use History: Marijuana - Past Family History Mother Family Medical History: CVA/TIA Father Family Medical History: Hyperlipidemia, Hypertension Additional Family Medical History / Comment(s): . General Exam - General Exam Comments Initial Comments: Constitutional: NAD, AOX3, Pt has pleasant affect. HEENT: NC/AT, trachea midline, neck supple, no lymphadenopathy. Posterior pharynx non erythematous, without exudates. External ears appear normal, without discharge. Mucous membranes moist. Eyes PERRLA, EOM intact. There is no scleral icterus. No pallor noted. Cardiopulmonary: RRR, no murmurs, rubs or gallops, no JVD noted. Lungs CTAB in anterior and posterior brady. No peripheral edema. Abdominal exam: Abdomen soft and non-distended. Abdomen non-tender to palpation in all 4 quadrants. Bowel sounds active in LLQ. No hepatosplenomegaly. No ecchymosis Neuro: CN II-XII grossly intact. No nuchal rigidity. No raccon eyes, no barrett sign, no hemotympanum. No cervical spinal tenderness. MSK: No posterior calf tenderness bilaterally, homans sign negative bilaterally. Posterior tibialis and radial pulse +2 bilaterally. Sensation intact in upper and lower extremities. Full active ROM in upper and lower extremities, 5/5 stregnth. Limitations: no limitations Course Vital Signs 04/05/20 04/05/20 04/05/20 16:16 17:59 18:33 Temperature 97.2 F L Pulse Rate 91 88 Respiratory 18 16 16 Rate Blood Pressure 104/69 103/56 O2 Sat by Pulse 99 98 Oximetry Medical Decision Making - Medical Decision Making 24-year-old male patient to ED nausea vomiting abdominal pain epigastric u ncontrolled blood sugars. Abdomen is nontender palpation. Patient is in DKA will be admitted. Case discussed with Dr. Lynn. - Lab Data Result diagrams: 04/05/20 16:43 04/05/20 16:43 Lab Results 04/05/20 04/05/20 04/05/20 Range/Units 16:20 16:29 16:43 WBC (3.8-10.6) k/uL RBC (4.30-5.90) m/uL Hgb (13.0-17.5) gm/dL Hct (39.0-53.0) % MCV (80.0-100.0) fL MCH (25.0-35.0) pg MCHC (31.0-37.0) g/dL RDW (11.5-15.5) % Plt Count (150-450) k/uL MPV Neutrophils % % Lymphocytes % % Monocytes % % Eosinophils % % Basophils % % Neutrophils # (1.3-7.7) k/uL Lymphocytes # (1.0-4.8) k/uL Monocytes # (0-1.0) k/uL Eosinophils # (0-0.7) k/uL Basophils # (0-0.2) k/uL Sodium 132 L (137-145) mmol/L Potassium 4.9 (3.5-5.1) mmol/L Chloride 98 (98-107) mmol/L Carbon Dioxide 21 L (22-30) mmol/L Anion Gap 13 mmol/L BUN 14 (9-20) mg/dL Creatinine 0.72 (0.66-1.25) mg/dL Est GFR (CKD-EPI)AfAm >90 (>60 ml/min/1.73 sqM) Est GFR (CKD-EPI)NonAf >90 (>60 ml/min/1.73 sqM) Glucose 513 H* (74-99) mg/dL POC Glucose (mg/dL) 482 H (75-99) mg/dL POC Glu [employer] ID Latia Gracia Calcium 8.6 (8.4-10.2) mg/dL Total Bilirubin 0.6 (0.2-1.3) mg/dL AST 16 L (17-59) U/L ALT 17 (4-49) U/L Alkaline Phosphatase 81 (38-126) U/L Total Protein 6.8 (6.3-8.2) g/dL Albumin 4.3 (3.5-5.0) g/dL Urine Color Colorless Urine Appearance Clear (Clear) Urine pH 5.0 (5.0-8.0) Ur Specific [place] 1.037 H (1.001-1.035) Urine Protein Negative (Negative) Urine Glucose (UA) 4+ H (Negative) Urine Ketones 3+ H (Negative) Urine Blood Negative (Negative) Urine Nitrite Negative (Negative) Urine Bilirubin Negative (Negative) Urine Urobilinogen <2.0 (<2.0) mg/dL Ur Leukocyte Esterase Negative (Negative) Acetone, Qual Positive (Negative) 04/05/20 04/05/20 Range/Units 16:43 18:29 WBC 8.9 (3.8-10.6) k/uL RBC 4.91 (4.30-5.90) m/uL Hgb 15.0 D (13.0-17.5) gm/dL Hct 44.4 (39.0-53.0) % MCV 90.4 (80.0-100.0) fL MCH 30.6 (25.0-35.0) pg MCHC 33.9 (31.0-37.0) g/dL RDW 12.9 (11.5-15.5) % Plt Count 264 (150-450) k/uL MPV 7.2 Neutrophils % 56 % Lymphocytes % 28 % Monocytes % 6 % Eosinophils % 7 % Basophils % 1 % Neutrophils # 5.0 (1.3-7.7) k/uL Lymphocytes # 2.5 (1.0-4.8) k/uL Monocytes # 0.5 (0-1.0) k/uL Eosinophils # 0.6 (0-0.7) k/uL Basophils # 0.1 (0-0.2) k/uL Sodium (137-145) mmol/L Potassium (3.5-5.1) mmol/L Chloride (98-107) mmol/L Carbon Dioxide (22-30) mmol/L Anion Gap mmol/L BUN (9-20) mg/dL Creatinine (0.66-1.25) mg/dL Est GFR (CKD-EPI)AfAm (>60 ml/min/1.73 sqM) Est GFR (CKD-EPI)NonAf (>60 ml/min/1.73 sqM) Glucose (74-99) mg/dL POC Glucose (mg/dL) 360 H (75-99) mg/dL POC Glu [employer] ID Amita Torres Calcium (8.4-10.2) mg/dL Total Bilirubin (0.2-1.3) mg/dL AST (17-59) U/L ALT (4-49) U/L Alkaline Phosphatase (38-126) U/L Total Protein (6.3-8.2) g/dL Albumin (3.5-5.0) g/dL Urine Color Urine Appearance (Clear) Urine pH (5.0-8.0) Ur Specific [place] (1.001-1.035) Urine Protein (Negative) Urine Glucose (UA) (Negative) Urine Ketones (Negative) Urine Blood (Negative) Urine Nitrite (Negative) Urine Bilirubin (Negative) Urine Urobilinogen (<2.0) mg/dL Ur Leukocyte Esterase (Negative) Acetone, Qual (Negative) Disposition Clinical Impression: DKA (diabetic ketoacidoses) Disposition: ADMITTED IP TO THIS [facility] Condition: Serious Is patient prescribed a controlled substance at d/c from ED?: No Referrals: Brown Valenzuela MD [Primary Care Provider] - 1-2 days
[2020-04-05 19:31] LABS: Glucose,Whole Blood 288 mg/dL (75-99)
[2020-04-05 20:34] LABS: Glucose,Whole Blood 228 mg/dL (75-99)
[2020-04-05 21:29] LABS: African American GFR (CKD) >90 (>60 ml/min/1.73 sqM); Anion Gap 9 mmol/L; Blood Urea Nitrogen 11 mg/dL (9-20); Carbon Dioxide 19 mmol/L (22-30); Chloride 108 mmol/L (98-107); Glucose 228 mg/dL (74-99); Non-African American GFR(CKD) >90 (>60 ml/min/1.73 sqM); Phosphorus 2.6 mg/dL (2.5-4.5); Potassium 3.7 mmol/L (3.5-5.1); Sodium 136 mmol/L (137-145)
[2020-04-05 21:30] LABS: Glucose,Whole Blood 236 mg/dL (75-99)
[2020-04-05 22:26] LABS: Glucose,Whole Blood 193 mg/dL (75-99)
[2020-04-05] MEDS: SODIUM CHLORIDE 0.9% 1,000 ML IV SCH (22:26)
[2020-04-06] MEDS: SODIUM CHLORIDE 0.9% 1,000 ML IV SCH ×2 (00:14→05:36)
[2020-04-06 05:49] LABS: Glucose,Whole Blood 253 mg/dL (75-99)
[2020-04-06] MEDS: INSULIN ASPART (NovoLOG) 100 UNIT/ML VIAL SQ SCH ×5 (06:37→21:15)
[2020-04-06 08:23] LABS: African American GFR (CKD) >90 (>60 ml/min/1.73 sqM); Anion Gap 10 mmol/L; Blood Urea Nitrogen 10 mg/dL (9-20); Calcium 8.3 mg/dL (8.4-10.2); Carbon Dioxide 22 mmol/L (22-30); Chloride 102 mmol/L (98-107); Glucose 246 mg/dL (74-99); Non-African American GFR(CKD) >90 (>60 ml/min/1.73 sqM); Potassium 4.1 mmol/L (3.5-5.1); Sodium 134 mmol/L (137-145)
[2020-04-06 09:24] LABS: Basophils # (A) 0.1 k/uL (0-0.2); Basophils % (A) 1 %; Eosinophils # (A) 0.7 k/uL (0-0.7); Eosinophils % (A) 7 %; HGB 14.6 gm/dL (13.0-17.5); Lymphocytes # (A) 2.3 k/uL (1.0-4.8); Lymphocytes % (A) 25 %; MCH 30.8 pg (25.0-35.0); MCHC 33.9 g/dL (31.0-37.0); MCV 90.9 fL (80.0-100.0); Mean Platelet Volume 6.8; Monocytes # (A) 0.4 k/uL (0-1.0); Monocytes % (A) 5 %; Neutrophils # (A) 5.4 k/uL (1.3-7.7); Neutrophils % (A) 61 %; Platelet Count 232 k/uL (150-450); RBC 4.73 m/uL (4.30-5.90); RDW 12.6 % (11.5-15.5)
[2020-04-06 11:40] LABS: Glucose,Whole Blood 378 mg/dL (75-99)
[2020-04-06 17:06] LABS: Glucose,Whole Blood 452 mg/dL (75-99)
[2020-04-06] MEDS ORDERED: INSULIN DETEMIR (LEVEMIR) 100 UNIT/ML SYR SQ SCH (18:00)
--- NOTE | 2020-04-06 18:19 | HP ---
HISTORY AND PHYSICAL CHIEF COMPLAINT: Nausea, vomiting, dehydration. HISTORY OF PRESENT ILLNESS: This is another admission for this 24-year-old white male who is a very noncompliant type 1 juvenile onset insulin-dependent diabetic. He has poor socioeconomic patterns and frequently comes in the hospital out of control. REVIEW OF SYSTEMS: He is having some blurred vision, excessive thirst. He has had no chest pain, shortness of breath, abdominal pain, hematemesis, melena, etc. Past medical history, family history and personal and social histories are all otherwise unremarkable or noncontributory and they are unchanged. He is supposed to be on Basaglar 40 units once a day and Admelog 10 mg before meals, but he rarely takes this as instructed. When he does, he is under good control. The remainder of his history is unremarkable. He does not smoke. PHYSICAL EXAMINATION: Blood pressure is 101/64 with a pulse of 98, respirations of 40. He is afebrile. In general, appeared to be slender, dehydrated and acutely ill. Skin color is normal. Skin is warm and dry. Lymph nodes not enlarged. Head, ears, eyes, nose, mouth, and throat are normal except for dry mucous membranes. Chest is clear. Cardiac exam is normal. Abdomen is soft, nontender. Extremities are normal. IMPRESSION: 1. Diabetic ketoacidosis. 2. 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 3. Ketoacidosis. 4. Dehydration. 5. Depression. PLAN: 1. Bed rest. 2. IV fluids. 3. DKA protocol. MMSHANEL / TRAMN: [id number] /
[2020-04-06 21:09] LABS: Glucose,Whole Blood 302 mg/dL (75-99)
[2020-04-07 04:45] VITALS: TEMP 98.4
[2020-04-07] MEDS ORDERED: INSULIN DETEMIR (LEVEMIR) 100 UNIT/ML SYR SQ SCH (07:00)
[2020-04-07 07:12] LABS: Glucose,Whole Blood 185 mg/dL (75-99)
[2020-04-07] MEDS: INSULIN ASPART (NovoLOG) 100 UNIT/ML VIAL SQ SCH ×4 (07:15→12:35)
[2020-04-07 09:06] VITALS: RESP 16
[2020-04-07 11:51] VITALS: BP 109/70; PULSE 60
[2020-04-07 12:04] LABS: Glucose,Whole Blood 225 mg/dL (75-99)
[2020-04-07 15:10] VITALS: BMI 19.4
--- NOTE | 2020-04-07 20:07 | DS ---
DISCHARGE SUMMARY DATE OF DISCHARGE: 04/07/2020. CHIEF COMPLAINT: Diabetic ketoacidosis. HISTORY OF PRESENT ILLNESS AND PHYSICAL EXAMINATION: Details of this young man's history and physical can be found in the initial workup. LABORATORY STUDIES: While he was in the hospital, he had laboratory studies, details of which can be found in the laboratory section of his chart. COURSE IN THE HOSPITAL: After admission, he was placed on bedrest, started on intravenous fluids and DKA protocol. Blood sugars came down and he was transferred over to a consistent carbohydrate diet and his usual basal bolus program. Blood sugars are still slightly high, but he signed out AGAINST MEDICAL ADVICE. FINAL DIAGNOSES: 1. Diabetic ketoacidosis. 2. Uncontrolled juvenile onset type 1 diabetes mellitus. 3. Personality disorder. 4. Major depression. OPERATIONS: None. CONSULTATION: None. He is improved. MMODL / IJN: [id number] /
[2020-04-07] MEDS ORDERED: traZODone HCL 100 MG TAB PO SCH (21:00)
[2020-04-07] MEDS ORDERED: GABAPENTIN 300 MG CAP PO SCH (21:00)
[2020-04-08] MEDS ORDERED: INSULIN DETEMIR (LEVEMIR) 100 UNIT/ML SYR SQ SCH (07:00)
--- NOTE | 2020-04-11 19:27 | PN ---
PROGRESS NOTE DATE OF SERVICE: 04/06/2020. CHIEF COMPLAINT: DKA. HISTORY OF PRESENT ILLNESS: This gentleman is doing well. Still a bit dehydrated. Sugars are still elevated. PHYSICAL EXAMINATION: Chest is clear. Cardiac exam is normal. Abdomen is soft, nontender. IMPRESSION: 1. Diabetic ketoacidosis. 2. Dehydration. PLAN: Resume his basal bolus program and he can probably go home either later today or tomorrow. MMODL / IJN: [id number] /
== END 2020-04-07 16:49 | disposition left against medical advice (07) ==
LOC: EEVIPCON 16:04 → EC 16:04 → INTOOBSV 17:53 → 3SCARD 17:53 → UNDODISIN 04-07 16:49
PROVIDERS: ADMIT Family Medicine; ATTEND Family Medicine
DX: E10.10 Type 1 diabetes mellitus with ketoacidosis without coma (principal); E86.0 Dehydration; E10.40 Type 1 diabetes mellitus with diabetic neuropathy, unspecified; E10.65 Type 1 diabetes mellitus with hyperglycemia; F41.9 Anxiety disorder, unspecified; F32.9 Major depressive disorder, single episode, unspecified; F60.9 Personality disorder, unspecified; G62.9 Polyneuropathy, unspecified; L30.9 Dermatitis, unspecified; F17.200 Nicotine dependence, unspecified, uncomplicated; Z91.19 Patient's noncompliance with other medical treatment and regimen; J45.909 Unspecified asthma, uncomplicated; Z79.4 Long term (current) use of insulin; Z90.49 Acquired absence of other specified parts of digestive tract; Z82.49 Family history of ischemic heart disease and other diseases of the circulatory system; Z82.3 Family history of stroke
CPT/HCPCS: 96366 ×3; 93005 ×2; 96361; 96365; 99285; 36415; 80051; 80053; 80048; 82565; 82009; 84100; 82947; 84520; 85025 ×2; 81003; 74018; G0378 ×3

== ENCOUNTER 2020-04-10 02:37 | Emergency (ER) | payer OTHER ==
[2020-04-10] MEDS ORDERED: SODIUM CHLORIDE 0.9% 1,000 ML IV ONE (02:45)
[2020-04-10] MEDS ORDERED: SODIUM CHLORIDE 0.9% 1,000 ML IV SCH (02:45)
[2020-04-10 03:08] LABS: Glucose,Whole Blood 322 mg/dL (75-99)
[2020-04-10 03:26] LABS: Basophils # (A) 0.1 k/uL (0-0.2); Basophils % (A) 1 %; Eosinophils # (A) 0.5 k/uL (0-0.7); Eosinophils % (A) 6 %; HGB 16.5 gm/dL (13.0-17.5); Lymphocytes # (A) 2.8 k/uL (1.0-4.8); Lymphocytes % (A) 34 %; MCH 30.4 pg (25.0-35.0); MCHC 32.9 g/dL (31.0-37.0); MCV 92.4 fL (80.0-100.0); Monocytes # (A) 0.4 k/uL (0-1.0); Monocytes % (A) 5 %; Neutrophils # (A) 4.3 k/uL (1.3-7.7); Neutrophils % (A) 53 %; Platelet Count 279 k/uL (150-450); RBC 5.42 m/uL (4.30-5.90); WBC 8.2 k/uL (3.8-10.6)
[2020-04-10 03:27] LABS: VBG PH 7.32 (7.31-7.41)
--- NOTE | 2020-04-10 03:27 | ED ---
Recheck HPI - General Chief Complaint: Recheck/Abnormal Lab/Rx Stated Complaint: poss DKA Time Seen by Provider: 04/10/20 02:38 Source: patient Mode of arrival: ambulatory Limitations: no limitations - History of Present Illness Initial Comments: Raul A 24-year-old male very well-known to the emergency department for frequent visits for hyperglycemia related to poorly controlled type 1 diabetes. Patient was discharged 3 days ago after a stay for DKA. Patient returns today stating he believes he is in DKA. Patient states that he has been nauseated and not eating much hasn't taken any insulin since yesterday afternoon and believes he is in DKA. - Related Data Home Medications Medication Instructions Recorded Confirmed Insulin Lispro [Admelog] 10 units SQ AC-TID 09/01/19 04/05/20 Insulin Lispro [Admelog] See Protocol SQ ACHS 12/15/19 04/05/20 Insulin Glargine,Hum.rec.anlog 40 unit SQ DAILY 04/05/20 04/05/20 [Lantus Solostar] Previous Rx's Medication Instructions Recorded Gabapentin [Neurontin] 600 mg PO BID 30 Days cap 09/01/19 traZODone HCL [Desyrel] 200 mg PO HS 30 Days tab 09/01/19 Ondansetron [Zofran ODT] 4 mg PO Q8HR #12 tab 04/10/20 Allergies Allergy/AdvReac Type Severity Reaction Status Date / Time No Known Allergies Allergy Verified 04/10/20 02:41 Review of Systems ROS Statement: Those systems with pertinent positive or pertinent negative responses have been documented in the HPI. ROS Other: All systems not noted in ROS Statement are negative. Past Medical History Past Medical History: Asthma, Diabetes Mellitus, Skin Disorder Additional Past Medical History / Comment(s): IDDM type I, neuropathy bilateral feet, DKAs, eczema. History of Any Multi-Drug Resistant Organisms: None Reported Past Surgical History: Adenoidectomy Additional Past Surgical History / Comment(s): 2002 Past Anesthesia/Blood Transfusion Reactions: No Reported Reaction Past Psychological History: Anxiety, Depression Smoking Status: Former smoker Past Alcohol Use History: Occasional Past Drug Use History: Marijuana - Past Family History Mother Family Medical History: CVA/TIA Father Family Medical History: Hyperlipidemia, Hypertension Additional Family Medical History / Comment(s): . General Exam - General Exam Comments Initial Comments: Physical Exam GENERAL: Thin, chronically ill appearing HENT: Normocephalic, Atraumatic. EYES: PERRL, EOMI PULMONARY: Unlabored respirations. No audible rales rhonchi or wheezing was noted. CARDIOVASCULAR: There is a regular rate and rhythm without any murmurs gallops or rubs. ABDOMEN: Soft and nontender with normal bowel sounds. SKIN: Dry, appears dehydrated Eczema : Deferred NEUROLOGIC: Patient is alert and oriented x3. Moving all extremities spontaneously MUSCULOSKELETAL: Normal extremities with adequate strength and full range of motion. No lower extremity swelling or edema. No calf tenderness. PSYCHIATRIC: Helpless affect Limitations: no limitations Course Vital Signs 04/10/20 04/10/20 02:39 04:00 Temperature 98.1 F 98.4 F Pulse Rate 80 98 Respiratory 17 18 Rate Blood Pressure 117/86 125/85 O2 Sat by Pulse 99 100 Oximetry Medical Decision Making - Medical Decision Making the patient was seen and evaluated history is obtained from the patient Patient concerned he may be in DKA hasn't taken insulin since yesterday afternoon is drinking a Mountain Dew upon arrival labs resulted with hyperglycemia, anion gap is only 14 kidney function is normal pH is normal Patient will be treated with Zofran for nausea, 2 L IV fluids and a single dose of IV insulin Patient's glucose improving after IVF and insulin, patient had single episode of non-bloody non-bilious emesis in ER and was given zofran starter pack as well as prescription Discussed with patient that he is not in DKA, glucose is improving, he is safe for discharge home with plan to follow his sliding scale she states that he doesn't feel good and doesn't want to be discharged home, states that he is not can eat or take his insulin and that he is going to come back later in DKA again, I advised the patient that he needs to just follow his sliding scale and stay hydrated threatening to develop DKA is not a reason to stay in the hospital. Patient states he just doesn't feel good. I advised the patient he may have gastroenteritis causing his nausea and vomiting but he's only had one episode of vomiting and 3 a half hours, he was drinking Mountain Dew on arrival. I advised him that he needs to be compliant with dietary restrictions take nausea medicine as needed and use a sliding scale insulin. I do feel the patient is high risk for readmission due to medication noncompliance I don't feel there is any indication for admission at this time the patient will be discharged home. - Lab Data Result diagrams: 04/10/20 03:15 04/10/20 03:15 Lab Results 04/10/20 04/10/20 04/10/20 Range/Units 03:06 03:15 03:15 WBC 8.2 (3.8-10.6) k/uL RBC 5.42 (4.30-5.90) m/uL Hgb 16.5 (13.0-17.5) gm/dL Hct 50.0 (39.0-53.0) % MCV 92.4 (80.0-100.0) fL MCH 30.4 (25.0-35.0) pg MCHC 32.9 (31.0-37.0) g/dL RDW 13.0 (11.5-15.5) % Plt Count 279 (150-450) k/uL MPV 7.0 Neutrophils % 53 % Lymphocytes % 34 % Monocytes % 5 % Eosinophils % 6 % Basophils % 1 % Neutrophils # 4.3 (1.3-7.7) k/uL Lymphocytes # 2.8 (1.0-4.8) k/uL Monocytes # 0.4 (0-1.0) k/uL Eosinophils # 0.5 (0-0.7) k/uL Basophils # 0.1 (0-0.2) k/uL VBG pH (7.31-7.41) VBG pCO2 (37-51) mmHg VBG HCO3 (24-28) mmol/L Sodium 140 (137-145) mmol/L Potassium 4.2 (3.5-5.1) mmol/L Chloride 97 L (98-107) mmol/L Carbon Dioxide 29 (22-30) mmol/L Anion Gap 14 mmol/L BUN 13 (9-20) mg/dL Creatinine 0.62 L (0.66-1.25) mg/dL Est GFR (CKD-EPI)AfAm >90 (>60 ml/min/1.73 sqM) Est GFR (CKD-EPI)NonAf >90 (>60 ml/min/1.73 sqM) Glucose 375 H (74-99) mg/dL POC Glucose (mg/dL) 322 H (75-99) mg/dL POC Glu [employer] ID Minal Flores Calcium 9.7 (8.4-10.2) mg/dL Phosphorus 4.5 (2.5-4.5) mg/dL Magnesium 2.1 (1.6-2.3) mg/dL Total Bilirubin 1.2 (0.2-1.3) mg/dL AST 16 L (17-59) U/L ALT 17 (4-49) U/L Alkaline Phosphatase 98 (38-126) U/L Total Protein 7.8 (6.3-8.2) g/dL Albumin 4.9 (3.5-5.0) g/dL Acetone, Qual Positive (Negative) 04/10/20 04/10/20 Range/Units 03:15 05:03 WBC (3.8-10.6) k/uL RBC (4.30-5.90) m/uL Hgb (13.0-17.5) gm/dL Hct (39.0-53.0) % MCV (80.0-100.0) fL MCH (25.0-35.0) pg MCHC (31.0-37.0) g/dL RDW (11.5-15.5) % Plt Count (150-450) k/uL MPV Neutrophils % % Lymphocytes % % Monocytes % % Eosinophils % % Basophils % % Neutrophils # (1.3-7.7) k/uL Lymphocytes # (1.0-4.8) k/uL Monocytes # (0-1.0) k/uL Eosinophils # (0-0.7) k/uL Basophils # (0-0.2) k/uL VBG pH 7.32 (7.31-7.41) VBG pCO2 60 H (37-51) mmHg VBG HCO3 30 H (24-28) mmol/L Sodium (137-145) mmol/L Potassium (3.5-5.1) mmol/L Chloride (98-107) mmol/L Carbon Dioxide (22-30) mmol/L Anion Gap mmol/L BUN (9-20) mg/dL Creatinine (0.66-1.25) mg/dL Est GFR (CKD-EPI)AfAm (>60 ml/min/1.73 sqM) Est GFR (CKD-EPI)NonAf (>60 ml/min/1.73 sqM) Glucose (74-99) mg/dL POC Glucose (mg/dL) 275 H (75-99) mg/dL POC Glu [employer] Minal Phillips Calcium (8.4-10.2) mg/dL Phosphorus (2.5-4.5) mg/dL Magnesium (1.6-2.3) mg/dL Total Bilirubin (0.2-1.3) mg/dL AST (17-59) U/L ALT (4-49) U/L Alkaline Phosphatase (38-126) U/L Total Protein (6.3-8.2) g/dL Albumin (3.5-5.0) g/dL Acetone, Qual (Negative) Disposition Clinical Impression: IDDM (insulin dependent diabetes mellitus), Hyperglycemia Disposition: HOME SELF-CARE Condition: Stable Additional Instructions: Continue your regular insulin sliding scale Drink plenty of water to stay hydrated Follow up with your primary care doctor Return to the ER for any worsening Prescriptions: Ondansetron [Zofran ODT] 4 mg PO Q8HR #12 tab Is patient prescribed a controlled substance at d/c from ED?: No Referrals: Brown Valenzuela MD [Primary Care Provider] - 1-2 days
[2020-04-10 03:39] LABS: ALT 17 U/L (4-49); AST 16 U/L (17-59); African American GFR (CKD) >90 (>60 ml/min/1.73 sqM); Albumin 4.9 g/dL (3.5-5.0); Alkaline Phosphatase 98 U/L (38-126); Anion Gap 14 mmol/L; Blood Urea Nitrogen 13 mg/dL (9-20); Calcium 9.7 mg/dL (8.4-10.2); Carbon Dioxide 29 mmol/L (22-30); Chloride 97 mmol/L (98-107); Glucose 375 mg/dL (74-99); Magnesium 2.1 mg/dL (1.6-2.3); Non-African American GFR(CKD) >90 (>60 ml/min/1.73 sqM); Phosphorus 4.5 mg/dL (2.5-4.5); Potassium 4.2 mmol/L (3.5-5.1); Sodium 140 mmol/L (137-145); Total Bilirubin 1.2 mg/dL (0.2-1.3); Total Protein 7.8 g/dL (6.3-8.2)
[2020-04-10] MEDS ORDERED: INSULIN REGULAR 100 UNIT/ML VIAL IV ONE (03:48)
[2020-04-10] MEDS ORDERED: ONDANSETRON 4 MG/2 ML VIAL IVP STA (03:49)
[2020-04-10 05:05] LABS: Glucose,Whole Blood 275 mg/dL (75-99)
[2020-04-10] MEDS ORDERED: ONDANSETRON 4 MG ODT STARTER PACK 2 TAB BTL PO STA (05:19)
[2020-04-10 05:58] VITALS: BP 145/98; PULSE 88; RESP 16; TEMP 98
== END 2020-04-10 05:40 | disposition home or self-care (01) ==
LOC: EC 02:37
DX: E10.65 Type 1 diabetes mellitus with hyperglycemia (principal); E10.40 Type 1 diabetes mellitus with diabetic neuropathy, unspecified; Z79.4 Long term (current) use of insulin; Z87.891 Personal history of nicotine dependence
CPT/HCPCS: 36415; 83930; 80053; 82803; 82009; 83605; 83735; 84100; 85025; 99284; 96374; 96375; 96361 ×2; J2405; S0119

== ENCOUNTER 2020-04-12 14:48 | Inpatient (IN) | payer OTHER ==
[2020-04-12 14:55] LABS: Glucose,Whole Blood 592 mg/dL (75-99)
[2020-04-12] MEDS ORDERED: INSULIN REGULAR BOLUS (FROM DRIP BAG) IV STA (14:56)
[2020-04-12] MEDS ORDERED: SODIUM CHLORIDE 0.9% 2,000 ML IV ONE (14:58)
--- NOTE | 2020-04-12 15:00 | ED ---
General Adult HPI - General Stated complaint: Unconscious Time Seen by Provider: 04/12/20 14:48 Source: RN/, RN notes reviewed, old records reviewed - History of Present Illness Initial comments: this is a 24-year-old male who presents emergency Department with altered mental status. Someone dropped him off at the front but there was no one with the patient when he came back and there was no history obtained. Patient was unable to give us any history. Staff recognized the patient is a diabetic and his blood sugar we took it was over 500. She was extremely cold we transfer him to the bed. - Related Data Home Medications Medication Instructions Recorded Confirmed Insulin Lispro [Admelog] 10 units SQ AC-TID 09/01/19 04/12/20 Insulin Lispro [Admelog] See Protocol SQ ACHS 12/15/19 04/12/20 Insulin Glargine,Hum.rec.anlog 40 unit SQ DAILY 04/05/20 04/12/20 [Lantus Solostar] Previous Rx's Medication Instructions Recorded Gabapentin [Neurontin] 600 mg PO BID 30 Days cap 09/01/19 traZODone HCL [Desyrel] 200 mg PO HS 30 Days tab 09/01/19 Ondansetron [Zofran ODT] 4 mg PO Q8HR #12 tab 04/10/20 Allergies Allergy/AdvReac Type Severity Reaction Status Date / Time No Known Allergies Allergy Verified 04/12/20 16:00 Review of Systems ROS Statement: Those systems with pertinent positive or pertinent negative responses have been documented in the HPI. ROS Other: All systems not noted in ROS Statement are negative. Past Medical History Past Medical History: Asthma, Diabetes Mellitus, Skin Disorder Additional Past Medical History / Comment(s): IDDM type I, neuropathy bilateral feet, DKAs, eczema. History of Any Multi-Drug Resistant Organisms: None Reported Past Surgical History: Adenoidectomy Additional Past Surgical History / Comment(s): 2002 Past Anesthesia/Blood Transfusion Reactions: No Reported Reaction Past Psychological History: Anxiety, Depression Smoking Status: Former smoker Past Alcohol Use History: Occasional Past Drug Use History: Marijuana - Past Family History Mother Family Medical History: CVA/TIA Father Family Medical History: Hyperlipidemia, Hypertension Additional Family Medical History / Comment(s): . General Exam - General Exam Comments Initial Comments: GENERAL: Patient is well-developed and well-nourished. Patient is nontoxic and well- hydrated and is in Mild distress. ENT: Neck is soft and supple. No significant lymphadenopathy is noted. Oropharynx is clear. Moist mucous membranes. Neck has full range of motion without eliciting any pain. EYES: The sclera were anicteric and conjunctiva were pink and moist. Extraocular movements were intact and pupils were equal round and reactive to light. Eyelids were unremarkable. PULMONARY: Unlabored respirations. Good breath sounds bilaterally. No audible rales rhonchi or wheezing was noted. CARDIOVASCULAR: There is a regular rate and rhythm without any murmurs gallops or rubs. ABDOMEN: Soft and nontender with normal bowel sounds. SKIN: Skin is clear with no lesions or rashes and otherwise unremarkable. NEUROLOGIC: Patient is response to painful stimuli with withdrawal patient does follow some very basic commands at this time. unable to complete a neuro exam MUSCULOSKELETAL: Normal extremities with adequate strength and full range of motion. No lower extremity swelling or edema. No calf tenderness. LYMPHATICS: No significant lymphadenopathy is noted PSYCHIATRIC: unable to assess Course Vital Signs 04/12/20 04/12/20 04/12/20 15:09 15:33 15:53 Temperature 88 F L Pulse Rate 67 67 69 Respiratory 12 18 18 Rate Blood Pressure 110/93 88/51 93/58 O2 Sat by Pulse 98 98 100 Oximetry 04/12/20 04/12/20 04/12/20 16:21 16:38 17:10 Temperature 88.1 F L Pulse Rate 71 76 80 Respiratory 20 18 18 Rate Blood Pressure 88/54 100/56 99/61 O2 Sat by Pulse 99 100 100 Oximetry 04/12/20 04/12/20 17:59 18:57 Temperature 91.1 F L 92.3 F L Pulse Rate 92 95 Respiratory 20 20 Rate Blood Pressure 112/63 105/61 O2 Sat by Pulse 100 99 Oximetry Medical Decision Making - Medical Decision Making EKG shows normal sinus rhythm at 69 bpm SC interval 288 QRSs 102 QT interval 452 QTC is 484. Patient's EKG shows no ST segment depression. Chest x-ray showed infiltrate in the right base consistent with pneumonia. Patient was given 2 g Rocephin andpatient was couldn't sit or septic at 502p.m. I spoke with Dr. Bravo he agreed to admit the patient admitted the patient wrote admitting orders. Patient will be admitted to the ICU I spoke with the critical care doctor.patient is given Rocephin and insulin bolus insulin drip and bicarb and the emergency department. - Lab Data Result diagrams: 04/12/20 15:00 04/12/20 15:00 Lab Results 04/12/20 04/12/20 04/12/20 Range/Units 14:51 15:00 15:00 WBC 48.5 H (3.8-10.6) k/uL RBC 5.67 (4.30-5.90) m/uL Hgb 17.4 (13.0-17.5) gm/dL Hct 56.9 H (39.0-53.0) % MCV 100.5 H D (80.0-100.0) fL MCH 30.7 (25.0-35.0) pg MCHC 30.6 L (31.0-37.0) g/dL RDW 12.8 (11.5-15.5) % Plt Count 353 (150-450) k/uL MPV 8.0 Neutrophils % (Manual) 73 % Band Neuts % (Manual) 7 % Lymphocytes % (Manual) 15 % Monocytes % (Manual) 2 % Eosinophils % (Manual) 1 % Metamyelocytes % 2 % Myelocytes % 3 % Neutrophils # (Manual) 38.80 H (1.3-7.7) k/uL Lymphocytes # (Manual) 7.28 H (1.0-4.8) k/uL Monocytes # (Manual) 0.97 (0-1.0) k/uL Eosinophils # (Manual) 0.49 (0-0.7) k/uL Metamyelocytes # (Man) 0.97 H (0) k/uL Myelocytes # (Manual) 1.46 H (0) k/uL Nucleated RBCs 0 (0-0) /100 WBC Manual Slide Review Performed Polychromasia Present Hypochromasia Marked Anisocytosis (manual) Present Sample Site ABG pH (7.35-7.45) ABG pH (Temp Correct) ABG pCO2 (35-45) mmHg ABG pCO2 (Temp Corrct ABG pO2 (83-108) mmHg ABG HCO3 (21-25) mmol/L ABG Total CO2 (19-24) mmol/L ABG O2 Saturation (94-97) % ABG Base Excess mmol/L Frank Test FiO2 % Sodium 138 (137-145) mmol/L Potassium 5.9 H (3.5-5.1) mmol/L Chloride 103 (98-107) mmol/L Carbon Dioxide <5 L* (22-30) mmol/L Anion Gap mmol/L BUN 54 H (9-20) mg/dL Creatinine 1.98 H (0.66-1.25) mg/dL Est GFR (CKD-EPI)AfAm 54 (>60 ml/min/1.73 sqM) Est GFR (CKD-EPI)NonAf 47 (>60 ml/min/1.73 sqM) Glucose 669 H* (74-99) mg/dL POC Glucose (mg/dL) 592 H (75-99) mg/dL POC Glu Operating Manager ID Latia Gracia Plasma Lactic Acid Len (0.7-2.0) mmol/L Calcium 9.6 (8.4-10.2) mg/dL Total Bilirubin 0.5 (0.2-1.3) mg/dL AST 27 (17-59) U/L ALT 18 (4-49) U/L Alkaline Phosphatase 144 H (38-126) U/L Total Protein 8.1 (6.3-8.2) g/dL Albumin 5.0 (3.5-5.0) g/dL Urine Color Urine Appearance (Clear) Urine pH (5.0-8.0) Ur Specific Addison (1.001-1.035) Urine Protein (Negative) Urine Glucose (UA) (Negative) Urine Ketones (Negative) Urine Blood (Negative) Urine Nitrite (Negative) Urine Bilirubin (Negative) Urine Urobilinogen (<2.0) mg/dL Ur Leukocyte Esterase (Negative) Urine RBC (0-5) /hpf Urine WBC (0-5) /hpf Urine Bacteria (None) /hpf Urine Opiates Screen (NotDetected) Ur Oxycodone Screen (NotDetected) Urine Methadone Screen (NotDetected) Ur Propoxyphene Screen (NotDetected) Ur Barbiturates Screen (NotDetected) U Tricyclic Antidepress (NotDetected) Ur Phencyclidine Scrn (NotDetected) Ur Amphetamines Screen (NotDetected) U Methamphetamines Scrn (NotDetected) U Benzodiazepines Scrn (NotDetected) Urine Cocaine Screen (NotDetected) U Marijuana (THC) Screen (NotDetected) Acetone, Qual Positive (Negative) 04/12/20 04/12/20 04/12/20 Range/Units 15:24 16:26 16:44 WBC (3.8-10.6) k/uL RBC (4.30-5.90) m/uL Hgb (13.0-17.5) gm/dL Hct (39.0-53.0) % MCV (80.0-100.0) fL MCH (25.0-35.0) pg MCHC (31.0-37.0) g/dL RDW (11.5-15.5) % Plt Count (150-450) k/uL MPV Neutrophils % (Manual) % Band Neuts % (Manual) % Lymphocytes % (Manual) % Monocytes % (Manual) % Eosinophils % (Manual) % Metamyelocytes % % Myelocytes % % Neutrophils # (Manual) (1.3-7.7) k/uL Lymphocytes # (Manual) (1.0-4.8) k/uL Monocytes # (Manual) (0-1.0) k/uL Eosinophils # (Manual) (0-0.7) k/uL Metamyelocytes # (Man) (0) k/uL Myelocytes # (Manual) (0) k/uL Nucleated RBCs (0-0) /100 WBC Manual Slide Review Polychromasia Hypochromasia Anisocytosis (manual) Sample Site Right Brachial ABG pH <6.80 L* (7.35-7.45) ABG pH (Temp Correct) 47.6 ABG pCO2 <15 L* (35-45) mmHg ABG pCO2 (Temp Corrct 96 ABG pO2 170 H (83-108) mmHg ABG HCO3 16 L (21-25) mmol/L ABG Total CO2 99 H (19-24) mmol/L ABG O2 Saturation 99.0 H (94-97) % ABG Base Excess 50.0 mmol/L Frank Test Yes FiO2 21 % Sodium (137-145) mmol/L Potassium (3.5-5.1) mmol/L Chloride (98-107) mmol/L Carbon Dioxide (22-30) mmol/L Anion Gap mmol/L BUN (9-20) mg/dL Creatinine (0.66-1.25) mg/dL Est GFR (CKD-EPI)AfAm (>60 ml/min/1.73 sqM) Est GFR (CKD-EPI)NonAf (>60 ml/min/1.73 sqM) Glucose (74-99) mg/dL POC Glucose (mg/dL) 493 H (75-99) mg/dL POC Glu Operating Manager ID Tra Gustafson Plasma Lactic Acid Len (0.7-2.0) mmol/L Calcium (8.4-10.2) mg/dL Total Bilirubin (0.2-1.3) mg/dL AST (17-59) U/L ALT (4-49) U/L Alkaline Phosphatase (38-126) U/L Total Protein (6.3-8.2) g/dL Albumin (3.5-5.0) g/dL Urine Color Light Yellow Urine Appearance Cloudy (Clear) Urine pH 5.0 (5.0-8.0) Ur Specific Addison 1.019 (1.001-1.035) Urine Protein 1+ H (Negative) Urine Glucose (UA) 4+ H (Negative) Urine Ketones 3+ H (Negative) Urine Blood Moderate H (Negative) Urine Nitrite Negative (Negative) Urine Bilirubin Negative (Negative) Urine Urobilinogen <2.0 (<2.0) mg/dL Ur Leukocyte Esterase Negative (Negative) Urine RBC 3 (0-5) /hpf Urine WBC 6 H (0-5) /hpf Urine Bacteria Rare H (None) /hpf Urine Opiates Screen Not Detected (NotDetected) Ur Oxycodone Screen Not Detected (NotDetected) Urine Methadone Screen Not Detected (NotDetected) Ur Propoxyphene Screen Not Detected (NotDetected) Ur Barbiturates Screen Not Detected (NotDetected) U Tricyclic Antidepress Not Detected (NotDetected) Ur Phencyclidine Scrn Not Detected (NotDetected) Ur Amphetamines Screen Not Detected (NotDetected) U Methamphetamines Scrn Not Detected (NotDetected) U Benzodiazepines Scrn Not Detected (NotDetected) Urine Cocaine Screen Not Detected (NotDetected) U Marijuana (THC) Screen Not Detected (NotDetected) Acetone, Qual (Negative) 04/12/20 04/12/20 04/12/20 Range/Units 17:33 17:37 18:39 WBC (3.8-10.6) k/uL RBC (4.30-5.90) m/uL Hgb (13.0-17.5) gm/dL Hct (39.0-53.0) % MCV (80.0-100.0) fL MCH (25.0-35.0) pg MCHC (31.0-37.0) g/dL RDW (11.5-15.5) % Plt Count (150-450) k/uL MPV Neutrophils % (Manual) % Band Neuts % (Manual) % Lymphocytes % (Manual) % Monocytes % (Manual) % Eosinophils % (Manual) % Metamyelocytes % % Myelocytes % % Neutrophils # (Manual) (1.3-7.7) k/uL Lymphocytes # (Manual) (1.0-4.8) k/uL Monocytes # (Manual) (0-1.0) k/uL Eosinophils # (Manual) (0-0.7) k/uL Metamyelocytes # (Man) (0) k/uL Myelocytes # (Manual) (0) k/uL Nucleated RBCs (0-0) /100 WBC Manual Slide Review Polychromasia Hypochromasia Anisocytosis (manual) Sample Site ABG pH (7.35-7.45) ABG pH (Temp Correct) ABG pCO2 (35-45) mmHg ABG pCO2 (Temp Corrct ABG pO2 (83-108) mmHg ABG HCO3 (21-25) mmol/L ABG Total CO2 (19-24) mmol/L ABG O2 Saturation (94-97) % ABG Base Excess mmol/L Frank Test FiO2 % Sodium (137-145) mmol/L Potassium (3.5-5.1) mmol/L Chloride (98-107) mmol/L Carbon Dioxide (22-30) mmol/L Anion Gap mmol/L BUN (9-20) mg/dL Creatinine (0.66-1.25) mg/dL Est GFR (CKD-EPI)AfAm (>60 ml/min/1.73 sqM) Est GFR (CKD-EPI)NonAf (>60 ml/min/1.73 sqM) Glucose (74-99) mg/dL POC Glucose (mg/dL) 452 H 428 H (75-99) mg/dL POC Glu Operating Manager ID Kourtney Gamez Aaron Plasma Lactic Acid Len 1.1 (0.7-2.0) mmol/L Calcium (8.4-10.2) mg/dL Total Bilirubin (0.2-1.3) mg/dL AST (17-59) U/L ALT (4-49) U/L Alkaline Phosphatase (38-126) U/L Total Protein (6.3-8.2) g/dL Albumin (3.5-5.0) g/dL Urine Color Urine Appearance (Clear) Urine pH (5.0-8.0) Ur Specific Addison (1.001-1.035) Urine Protein (Negative) Urine Glucose (UA) (Negative) Urine Ketones (Negative) Urine Blood (Negative) Urine Nitrite (Negative) Urine Bilirubin (Negative) Urine Urobilinogen (<2.0) mg/dL Ur Leukocyte Esterase (Negative) Urine RBC (0-5) /hpf Urine WBC (0-5) /hpf Urine Bacteria (None) /hpf Urine Opiates Screen (NotDetected) Ur Oxycodone Screen (NotDetected) Urine Methadone Screen (NotDetected) Ur Propoxyphene Screen (NotDetected) Ur Barbiturates Screen (NotDetected) U Tricyclic Antidepress (NotDetected) Ur Phencyclidine Scrn (NotDetected) Ur Amphetamines Screen (NotDetected) U Methamphetamines Scrn (NotDetected) U Benzodiazepines Scrn (NotDetected) Urine Cocaine Screen (NotDetected) U Marijuana (THC) Screen (NotDetected) Acetone, Qual (Negative) Critical Care Time Critical Care Time: Yes Total Critical Care Time: 45 Disposition Clinical Impression: Pneumonia, Diabetic ketoacidosis, Hypothermia, Sepsis Disposition: ADMITTED IP TO THIS HOSP Referrals: None,Stated [Primary Care Provider] - 1-2 days Time of Disposition: 17:47
[2020-04-12 15:20] LABS: ALT 18 U/L (4-49); AST 27 U/L (17-59); Alkaline Phosphatase 144 U/L (38-126); Blood Urea Nitrogen 54 mg/dL (9-20); Calcium 9.6 mg/dL (8.4-10.2); Chloride 103 mmol/L (98-107); Potassium 5.9 mmol/L (3.5-5.1); Sodium 138 mmol/L (137-145); Total Bilirubin 0.5 mg/dL (0.2-1.3); Total Protein 8.1 g/dL (6.3-8.2)
[2020-04-12 15:24] LABS: HCT 56.9 % (39.0-53.0); HGB 17.4 gm/dL (13.0-17.5); Hypochromasia Marked; MCH 30.7 pg (25.0-35.0); MCHC 30.6 g/dL (31.0-37.0); Platelet Count 353 k/uL (150-450); RBC 5.67 m/uL (4.30-5.90); RDW 12.8 % (11.5-15.5); WBC 48.5 k/uL (3.8-10.6)
[2020-04-12 15:25] LABS: MCV 100.5 fL (80.0-100.0)
[2020-04-12 15:26] LABS: African American GFR (CKD) 54 (>60 ml/min/1.73 sqM); Non-African American GFR(CKD) 47 (>60 ml/min/1.73 sqM)
[2020-04-12 15:30] LABS: Allen Test Performed? Yes
[2020-04-12 15:31] LABS: ABG PH <6.80 (7.35-7.45)
[2020-04-12 15:32] LABS: ABG PCO2 <15 mmHg (35-45); ABG TCO2 99 mmol/L (19-24)
[2020-04-12 15:34] LABS: Carbon Dioxide <5 mmol/L (22-30); Glucose 669 mg/dL (74-99)
[2020-04-12] MEDS: INSULIN REGULAR 100 UNIT in SODIUM CHLORIDE 0.9% 100 ML IV SCH (15:49)
[2020-04-12 15:56] LABS: Band Neutrophils % 7 %; Eosinophils # (M) 0.49 k/uL (0-0.7); Lymphocytes # (M) 7.28 k/uL (1.0-4.8); Metamyelocytes # (M) 0.97 k/uL (0); Metamyelocytes % 2 %; Monocytes # (M) 0.97 k/uL (0-1.0); Myelocytes # (M) 1.46 k/uL (0); Myelocytes % 3 %; Neutrophils % (M) 73 %; Nucleated Red Blood Cells 0 /100 WBC (0-0); Total Cells Counted 200
[2020-04-12 15:57] LABS: Anisocytosis (M) Present; Polychromasia Present
[2020-04-12 16:28] LABS: Glucose,Whole Blood 493 mg/dL (75-99)
--- NOTE | 2020-04-12 16:35 | XR ---
EXAMINATION TYPE: XR chest 1V portable DATE OF EXAM: 04/12/2020 COMPARISON: 12/30/2019 INDICATION: Difficulty breathing TECHNIQUE: Single frontal view of the chest is obtained. FINDINGS: The heart size is normal. The pulmonary vasculature is normal. Mild posterior right lower lobe infiltrate has developed. Lungs are otherwise clear. IMPRESSION: 1. Mild right lower lobe infiltrate. Correlate for pneumonia or aspiration.
[2020-04-12 16:54] LABS: Appearance,Urine Cloudy (Clear); Bacteria,Urine Rare /hpf; Bilirubin,Urine Negative (Negative); Blood,Urine Moderate (Negative); Color,Urine Light Yellow; Glucose,Urine (UA) 4+ (Negative); Leukocyte Esterase,Urine Negative (Negative); Nitrite,Urine Negative (Negative); Protein,Urine 1+ (Negative); RBC,Urine 3 /hpf (0-5); Specific Gravity,Urine 1.019 (1.001-1.035); Urobilinogen,Urine <2.0 mg/dL (<2.0); WBC,Urine 6 /hpf (0-5)
[2020-04-12] MEDS ORDERED: cefTRIAXone IN SWFI 1,000 MG/10 ML SYRINGE IVP STA ×3 (17:02→17:41)
[2020-04-12 17:10] LABS: Amphetamine Screen,Urine Not Detected (NotDetected); Barbiturate Screen,Urine Not Detected (NotDetected); Benzodiazepines Screen,Urine Not Detected (NotDetected); Cocaine Screen,Urine Not Detected (NotDetected); Methadone Screen, Urine Not Detected (NotDetected); Opiate Screen,Urine Not Detected (NotDetected); Oxycodone Screen, Urine Not Detected (NotDetected); Phencyclidine Screen,Urine Not Detected (NotDetected); Tricyclic Antidepressant,Urine Not Detected (NotDetected); Urn Cannabinoid Scrn Not Detected (NotDetected)
[2020-04-12 17:11] LABS: Ketones,Urine 3+ (Negative)
[2020-04-12 17:30] LABS: ABG PO2 170 mmHg (83-108)
[2020-04-12 17:31] LABS: ABG HCO3 16 mmol/L (21-25); ABG PCO2, Temp Corrected 96; ABG PH, Temp Corrected 47.6
[2020-04-12 17:38] LABS: Glucose,Whole Blood 452 mg/dL (75-99)
[2020-04-12] MEDS ORDERED: SODIUM BICARB 8.4% 50 ML SYR (1 MEQ/ML) IV STA ×2 (17:38→17:39)
[2020-04-12] MEDS ORDERED: SODIUM CHLORIDE 0.9% 1,000 ML IV ONE (17:39)
[2020-04-12 18:41] LABS: Glucose,Whole Blood 428 mg/dL (75-99)
[2020-04-12] MEDS ORDERED: SODIUM CHLORIDE 0.9% 1,000 ML IV STA ×2 (18:54→19:57)
[2020-04-12] MEDS ORDERED: NALOXONE 0.4 MG/ML 1 ML VIAL IV PRN (19:42)
[2020-04-12 19:46] LABS: Glucose,Whole Blood 367 mg/dL (75-99)
--- NOTE | 2020-04-12 19:47 | P.CNPUL ---
History of Present Illness Consult date: 04/12/20 Chief complaint: altered mentation History of present illness: 89-year-old male patient, history of childhood asthma, history of diabetes mellitus type 1 with previous hospitalizations for DKA, comes in today altered mentation, hypothermic with a rectal temperature of 88, diminished level of consciousness, dehydrated, confused, and having elevated blood sugar. Initial blood sugar was 699. The blood gases was done in emergency department on room air showed a pH of 6.8 with a pCO2 of less than 15 and pO2 of 170 and this was done on room air oxygen. The patient had a white cell count of 48 with a hemoglobin of 17.4 and platelet count of 353. The serum bicarbonate was less than 5 with severe anion gap metabolic acidosis. There is an acute kidney injury with a creatinine of 1.98 with a BMI 54. He was positive for ketones and positive for glucose and his UA. Urine drug screen was positive for acetone. Otherwise negative. The patient received a total of 4 L of normal saline. He is gradually more responsive. His chest x-ray showing a questionable haziness in the right lung base and the patient was started on IV antibiotics and he was given IV Rocephin. He is receiving external warming and his current temperature is is 91.5 axillary. Review of Systems ROS unobtainable: due to mental status Past Medical History Past Medical History: Asthma, Diabetes Mellitus, Skin Disorder Additional Past Medical History / Comment(s): IDDM type I, neuropathy bilateral feet, DKAs, eczema. History of Any Multi-Drug Resistant Organisms: None Reported Past Surgical History: Adenoidectomy Additional Past Surgical History / Comment(s): 2002 Past Anesthesia/Blood Transfusion Reactions: No Reported Reaction Past Psychological History: Anxiety, Depression Smoking Status: Former smoker Past Alcohol Use History: Occasional Past Drug Use History: Marijuana - Past Family History Mother Family Medical History: CVA/TIA Father Family Medical History: Hyperlipidemia, Hypertension Additional Family Medical History / Comment(s): . Medications and Allergies Home Medications Medication Instructions Recorded Confirmed Type Gabapentin [Neurontin] 600 mg PO BID 30 Days cap 09/01/19 04/12/20 Rx Insulin Lispro [Admelog] 10 units SQ AC-TID 09/01/19 04/12/20 History traZODone HCL [Desyrel] 200 mg PO HS 30 Days tab 09/01/19 04/12/20 Rx Insulin Lispro [Admelog] See Protocol SQ ACHS 12/15/19 04/12/20 History Insulin Glargine,Hum.rec.anlog 40 unit SQ DAILY 04/05/20 04/12/20 History [Lantus Solostar] Ondansetron [Zofran ODT] 4 mg PO Q8HR #12 tab 04/10/20 04/12/20 Rx Allergies Allergy/AdvReac Type Severity Reaction Status Date / Time No Known Allergies Allergy Verified 04/12/20 16:00 Physical Exam Vitals: Vital Signs Temp Pulse Resp BP Pulse Ox 04/12/20 18:57 92.3 F L 95 20 105/61 99 04/12/20 17:59 91.1 F L 92 20 112/63 100 04/12/20 17:10 80 18 99/61 100 04/12/20 16:38 88.1 F L 76 18 100/56 100 04/12/20 16:21 71 20 88/54 99 04/12/20 15:53 69 18 93/58 100 04/12/20 15:33 88 F L 67 18 88/51 98 04/12/20 15:09 67 12 110/93 98 Intake and Output 04/12/20 04/12/20 04/12/20 06:59 14:59 22:59 Output Total 200 Balance -200 Output: Urine 200 Straight 200 Other: Weight 68.039 kg lethargic, sleepy and drowsy, nonacute respiratory distress, hypothermic and the patient is receiving external warming Head exam was generally normal. There was no scleral icterus or corneal arcus. Mucous membranes were moist. Neck was supple and without jugular venous distension, thyromegaly, or carotid bruits. Carotids were easily palpable bilaterally. There was no adenopathy. Cardiac exam revealed the PMI to be normally situated and sized. The rhythm was regular and no extrasystoles were noted during several minutes of auscultation. The first and second heart sounds were normal and physiologic splitting of the second heart sound was noted. There were no murmurs, rubs, clicks, or gallops. Lungs were clear to auscultation and percussion, and with normal diaphragmatic excursion. No wheezes or rales were noted. Abdominal exam revealed normal bowel sounds. The abdomen was soft, non-tender, and without masses, organomegaly, or appreciable enlargement of the abdominal aorta. Examination of the extremities revealed easily palpable radial, femoral and pedal pulses. There was no cyanosis, clubbing or edema. Examination of the skin revealed no evidence of significant rashes, suspicious appearing nevi or other concerning lesions. Neurologically the patient is quite somnolent and sleepy and confused and very slow in answering questions. He is moving all 4 extremities. Pupils are equal and reactive to light. No focal neurological deficit at this point in time. Results - Laboratory Findings CBC and BMP: 04/12/20 15:00 04/12/20 15:00 ABG WBC 48.5 k/uL (3.8-10.6) H 04/12/20 15:00 RBC 5.67 m/uL (4.30-5.90) 04/12/20 15:00 Hgb 17.4 gm/dL (13.0-17.5) 04/12/20 15:00 Hct 56.9 % (39.0-53.0) H 04/12/20 15:00 MCV 100.5 fL (80.0-100.0) H D 04/12/20 15:00 MCH 30.7 pg (25.0-35.0) 04/12/20 15:00 MCHC 30.6 g/dL (31.0-37.0) L 04/12/20 15:00 RDW 12.8 % (11.5-15.5) 04/12/20 15:00 Plt Count 353 k/uL (150-450) 04/12/20 15:00 MPV 8.0 04/12/20 15:00 Neutrophils % (Manual) 73 % 04/12/20 15:00 Band Neuts % (Manual) 7 % 04/12/20 15:00 Lymphocytes % (Manual) 15 % 04/12/20 15:00 Monocytes % (Manual) 2 % 04/12/20 15:00 Eosinophils % (Manual) 1 % 04/12/20 15:00 Metamyelocytes % 2 % 04/12/20 15:00 Myelocytes % 3 % 04/12/20 15:00 Neutrophils # (Manual) 38.80 k/uL (1.3-7.7) H 04/12/20 15:00 Lymphocytes # (Manual) 7.28 k/uL (1.0-4.8) H 04/12/20 15:00 Monocytes # (Manual) 0.97 k/uL (0-1.0) 04/12/20 15:00 Eosinophils # (Manual) 0.49 k/uL (0-0.7) 04/12/20 15:00 Metamyelocytes # (Man) 0.97 k/uL (0) H 04/12/20 15:00 Myelocytes # (Manual) 1.46 k/uL (0) H 04/12/20 15:00 Nucleated RBCs 0 /100 WBC (0-0) 04/12/20 15:00 Manual Slide Review Performed 04/12/20 15:00 Polychromasia Present 04/12/20 15:00 Hypochromasia Marked 04/12/20 15:00 Anisocytosis (manual) Present 04/12/20 15:00 Sample Site Right Brachial 04/12/20 15:24 ABG pH <6.80 (7.35-7.45) L* 04/12/20 15:24 ABG pH (Temp Correct) 47.6 04/12/20 15:24 ABG pCO2 <15 mmHg (35-45) L* 04/12/20 15:24 ABG pCO2 (Temp Corrct 96 04/12/20 15:24 ABG pO2 170 mmHg (83-108) H 04/12/20 15:24 ABG HCO3 16 mmol/L (21-25) L 04/12/20 15:24 ABG Total CO2 99 mmol/L (19-24) H 04/12/20 15:24 ABG O2 Saturation 99.0 % (94-97) H 04/12/20 15:24 ABG Base Excess 50.0 mmol/L 04/12/20 15:24 Frank Test Yes 04/12/20 15:24 FiO2 21 % 04/12/20 15:24 Sodium 138 mmol/L (137-145) 04/12/20 15:00 Potassium 5.9 mmol/L (3.5-5.1) H 04/12/20 15:00 Chloride 103 mmol/L (98-107) 04/12/20 15:00 Carbon Dioxide <5 mmol/L (22-30) L* 04/12/20 15:00 Anion Gap mmol/L 04/12/20 15:00 BUN 54 mg/dL (9-20) H 04/12/20 15:00 Creatinine 1.98 mg/dL (0.66-1.25) H 04/12/20 15:00 Est GFR (CKD-EPI)AfAm 54 (>60 ml/min/1.73 sqM) 04/12/20 15:00 Est GFR (CKD-EPI)NonAf 47 (>60 ml/min/1.73 sqM) 04/12/20 15:00 Glucose 669 mg/dL (74-99) H* 04/12/20 15:00 POC Glucose (mg/dL) 428 mg/dL (75-99) H 04/12/20 18:39 POC Glu Customer Support Representative ID Tra Gustafson 04/12/20 18:39 Plasma Lactic Acid Len 1.1 mmol/L (0.7-2.0) 04/12/20 17:33 Calcium 9.6 mg/dL (8.4-10.2) 04/12/20 15:00 Total Bilirubin 0.5 mg/dL (0.2-1.3) 04/12/20 15:00 AST 27 U/L (17-59) 04/12/20 15:00 ALT 18 U/L (4-49) 04/12/20 15:00 Alkaline Phosphatase 144 U/L (38-126) H 04/12/20 15:00 Total Protein 8.1 g/dL (6.3-8.2) 04/12/20 15:00 Albumin 5.0 g/dL (3.5-5.0) 04/12/20 15:00 Urine Color Light Yellow 04/12/20 16:44 Urine Appearance Cloudy (Clear) 04/12/20 16:44 Urine pH 5.0 (5.0-8.0) 04/12/20 16:44 Ur Specific [place] 1.019 (1.001-1.035) 04/12/20 16:44 Urine Protein 1+ (Negative) H 04/12/20 16:44 Urine Glucose (UA) 4+ (Negative) H 04/12/20 16:44 Urine Ketones 3+ (Negative) H 04/12/20 16:44 Urine Blood Moderate (Negative) H 04/12/20 16:44 Urine Nitrite Negative (Negative) 04/12/20 16:44 Urine Bilirubin Negative (Negative) 04/12/20 16:44 Urine Urobilinogen <2.0 mg/dL (<2.0) 04/12/20 16:44 Ur Leukocyte Esterase Negative (Negative) 04/12/20 16:44 Urine RBC 3 /hpf (0-5) 04/12/20 16:44 Urine WBC 6 /hpf (0-5) H 04/12/20 16:44 Urine Bacteria Rare /hpf (None) H 04/12/20 16:44 Urine Opiates Screen Not Detected (NotDetected) 04/12/20 16:44 Ur Oxycodone Screen Not Detected (NotDetected) 04/12/20 16:44 Urine Methadone Screen Not Detected (NotDetected) 04/12/20 16:44 Ur Propoxyphene Screen Not Detected (NotDetected) 04/12/20 16:44 Ur Barbiturates Screen Not Detected (NotDetected) 04/12/20 16:44 U Tricyclic Antidepress Not Detected (NotDetected) 04/12/20 16:44 Ur Phencyclidine Scrn Not Detected (NotDetected) 04/12/20 16:44 Ur Amphetamines Screen Not Detected (NotDetected) 04/12/20 16:44 U Methamphetamines Scrn Not Detected (NotDetected) 04/12/20 16:44 U Benzodiazepines Scrn Not Detected (NotDetected) 04/12/20 16:44 Urine Cocaine Screen Not Detected (NotDetected) 04/12/20 16:44 U Marijuana (THC) Screen Not Detected (NotDetected) 04/12/20 16:44 Acetone, Qual Positive (Negative) 04/12/20 15:00 Abnormal lab findings: Abnormal Labs 04/12/20 04/12/20 04/12/20 14:51 15:00 15:00 WBC 48.5 H Hct 56.9 H MCV 100.5 H D MCHC 30.6 L Neutrophils # (Manual) 38.80 H Lymphocytes # (Manual) 7.28 H Metamyelocytes # (Man) 0.97 H Myelocytes # (Manual) 1.46 H ABG pH ABG pCO2 ABG pO2 ABG HCO3 ABG Total CO2 ABG O2 Saturation Potassium 5.9 H Carbon Dioxide <5 L* BUN 54 H Creatinine 1.98 H Glucose 669 H* POC Glucose (mg/dL) 592 H Alkaline Phosphatase 144 H Urine Protein Urine Glucose (UA) Urine Ketones Urine Blood Urine WBC Urine Bacteria 04/12/20 04/12/20 04/12/20 15:24 16:26 16:44 WBC Hct MCV MCHC Neutrophils # (Manual) Lymphocytes # (Manual) Metamyelocytes # (Man) Myelocytes # (Manual) ABG pH <6.80 L* ABG pCO2 <15 L* ABG pO2 170 H ABG HCO3 16 L ABG Total CO2 99 H ABG O2 Saturation 99.0 H Potassium Carbon Dioxide BUN Creatinine Glucose POC Glucose (mg/dL) 493 H Alkaline Phosphatase Urine Protein 1+ H Urine Glucose (UA) 4+ H Urine Ketones 3+ H Urine Blood Moderate H Urine WBC 6 H Urine Bacteria Rare H 04/12/20 04/12/20 17:37 18:39 WBC Hct MCV MCHC Neutrophils # (Manual) Lymphocytes # (Manual) Metamyelocytes # (Man) Myelocytes # (Manual) ABG pH ABG pCO2 ABG pO2 ABG HCO3 ABG Total CO2 ABG O2 Saturation Potassium Carbon Dioxide BUN Creatinine Glucose POC Glucose (mg/dL) 452 H 428 H Alkaline Phosphatase Urine Protein Urine Glucose (UA) Urine Ketones Urine Blood Urine WBC Urine Bacteria - Diagnostic Findings Chest x-ray: image reviewed Assessment and Plan Plan: 1 DKA with severe metabolic acidosis and anion gap type. The patient is severely hyperglycemic, dehydrated, volume depleted and acidotic with a pH of 6.8 at time of admission and currently he has been resuscitated a total of 4 L of IV fluids and currently is on insulin drip at 7 units an hour and normal saline is running at the rate of 200 mL an hour. 2 leukocytosis, likely reactive although the possibility of an underlying aspiration pneumonia involving the right lower lobe cannot be completely. 3 severe hypothermia with an axillary temperature of 88 and currently receiving external warming with her most recent rectal temperature up to 91 4 altered mentation secondary to above 5 diabetes mellitus 1 maintained on Lantus insulin outpatient basis 6 Previous history of DKA 7 bronchial asthma mild intermittent in nature 8 depression 9 Anxiety 10 previous history of use of marijuana and history of stimulant use. plan Continue insulin drip per protocol currently on 7 units an hour Normal saline at the rate after 100 mL an hour and a suspicious of D5 half- normal once the blood sugar is less than 250 external warming and utilize warm fluid Blood sugar measurement every 1 hour CMP every 4 hours IV Rocephin as emperic antibiotic coverage Aspiration precautions and repeat chest x-ray in a.m. Heparin subcu for DVT prophylaxis Transferred to the ICU we'll continue to follow
[2020-04-12 20:34] LABS: Glucose,Whole Blood 286 mg/dL (75-99)
[2020-04-12] MEDS: DEXTROSE 5%-0.45% NACL 1,000 ML with POTASSIUM CHLORIDE 20 MEQ IV SCH ×2 (21:00)
[2020-04-12 21:37] LABS: Glucose,Whole Blood 239 mg/dL (75-99)
[2020-04-12 21:43] LABS: ALT 16 U/L (4-49); AST 29 U/L (17-59); African American GFR (CKD) 58 (>60 ml/min/1.73 sqM); Albumin 3.7 g/dL (3.5-5.0); Alkaline Phosphatase 94 U/L (38-126); Blood Urea Nitrogen 56 mg/dL (9-20); Calcium 8.4 mg/dL (8.4-10.2); Chloride 116 mmol/L (98-107); Glucose 303 mg/dL (74-99); Non-African American GFR(CKD) 50 (>60 ml/min/1.73 sqM); Potassium 5.4 mmol/L (3.5-5.1); Sodium 143 mmol/L (137-145); Total Bilirubin 0.3 mg/dL (0.2-1.3); Total Protein 6.1 g/dL (6.3-8.2)
[2020-04-12 21:45] LABS: Carbon Dioxide <5 mmol/L (22-30)
[2020-04-12 22:32] LABS: Glucose,Whole Blood 257 mg/dL (75-99)
[2020-04-12 23:00] LABS: Glucose,Whole Blood 262 mg/dL (75-99)
[2020-04-12 23:56] LABS: Glucose,Whole Blood 210 mg/dL (75-99)
[2020-04-13 01:08] LABS: Glucose,Whole Blood 170 mg/dL (75-99)
[2020-04-13 01:52] LABS: Albumin 3.7 g/dL (3.5-5.0); Calcium 9.3 mg/dL (8.4-10.2); Potassium 4.5 mmol/L (3.5-5.1)
[2020-04-13 01:53] LABS: Total Bilirubin 0.3 mg/dL (0.2-1.3)
[2020-04-13 02:09] LABS: Glucose,Whole Blood 178 mg/dL (75-99)
[2020-04-13 03:16] LABS: Glucose,Whole Blood 128 mg/dL (75-99)
[2020-04-13 04:11] LABS: HCT 46.2 % (39.0-53.0); HGB 15.4 gm/dL (13.0-17.5); MCH 30.5 pg (25.0-35.0); MCHC 33.3 g/dL (31.0-37.0); Platelet Count 220 k/uL (150-450); RBC 5.05 m/uL (4.30-5.90); RDW 12.9 % (11.5-15.5); WBC 23.6 k/uL (3.8-10.6)
[2020-04-13 04:18] LABS: Glucose,Whole Blood 129 mg/dL (75-99)
[2020-04-13 04:25] LABS: Albumin 3.6 g/dL (3.5-5.0); Calcium 9.5 mg/dL (8.4-10.2); Potassium 4.3 mmol/L (3.5-5.1); Total Bilirubin 0.3 mg/dL (0.2-1.3)
[2020-04-13 04:35] LABS: Band Neutrophils % 8 %; Lymphocytes # (M) 1.89 k/uL (1.0-4.8); Monocytes # (M) 1.89 k/uL (0-1.0); Neutrophils % (M) 76 %; Nucleated Red Blood Cells 0 /100 WBC (0-0); Total Cells Counted 200
[2020-04-13 05:20] LABS: Glucose,Whole Blood 115 mg/dL (75-99)
[2020-04-13 06:21] LABS: Glucose,Whole Blood 139 mg/dL (75-99)
[2020-04-13 07:25] LABS: Glucose,Whole Blood 203 mg/dL (75-99)
[2020-04-13] MEDS: DEXTROSE 5%-0.45% NACL 1,000 ML with POTASSIUM CHLORIDE 20 MEQ IV SCH ×6 (07:39→20:03)
[2020-04-13 08:47] LABS: Glucose,Whole Blood 219 mg/dL (75-99)
[2020-04-13 08:51] LABS: ALT 17 U/L (4-49); AST 34 U/L (17-59); African American GFR (CKD) 63 (>60 ml/min/1.73 sqM); Albumin 3.7 g/dL (3.5-5.0); Alkaline Phosphatase 104 U/L (38-126); Blood Urea Nitrogen 61 mg/dL (9-20); Calcium 9.3 mg/dL (8.4-10.2); Chloride 118 mmol/L (98-107); Glucose 238 mg/dL (74-99); Non-African American GFR(CKD) 54 (>60 ml/min/1.73 sqM); Potassium 4.6 mmol/L (3.5-5.1); Sodium 145 mmol/L (137-145); Total Bilirubin 0.3 mg/dL (0.2-1.3)
--- NOTE | 2020-04-13 08:53 | XR ---
EXAMINATION TYPE: XR chest 1V portable DATE OF EXAM: 04/13/2020 COMPARISON: 04/12/2020 HISTORY: Cough possible aspiration TECHNIQUE: Single frontal view of the chest is obtained. FINDINGS: There is increased density along the peripheral margin of the right lung base which could be within the rib. Heart size normal with no overt failure. No pneumothorax. Not clearly seen on the recent prior exam. No overt failure. No pneumothorax. Subsegmental changes ar e seen at the left lung base. IMPRESSION: 1. Areas of increased density along the lateral margin of the right lower lobe may be within the late ral margin of the rib. 2. Left basilar atelectasis favored over pneumonia correlate clinically
[2020-04-13 09:14] LABS: Carbon Dioxide <5 mmol/L (22-30)
[2020-04-13] MEDS: PANTOPRAZOLE 40 MG/10 ML VIAL IV SCH (09:24)
[2020-04-13] MEDS: HEPARIN SODIUM,PORCINE 5,000 UNIT/ML 1 ML VIAL SQ SCH ×2 (09:24→21:14)
[2020-04-13 09:34] LABS: Glucose,Whole Blood 317 mg/dL (75-99)
[2020-04-13] MEDS: SODIUM CHLORIDE 0.9% 1,000 ML IV SCH ×2 (09:44→21:13)
[2020-04-13] MEDS: INSULIN REGULAR 100 UNIT in SODIUM CHLORIDE 0.9% 100 ML IV SCH ×3 (09:44→23:45)
[2020-04-13 10:29] LABS: Glucose,Whole Blood 304 mg/dL (75-99)
[2020-04-13] MEDS ORDERED: SODIUM BICARB 8.4% 50 ML SYR (1 MEQ/ML) IV STA (11:11)
[2020-04-13 11:18] LABS: Glucose,Whole Blood 254 mg/dL (75-99)
[2020-04-13] MEDS: AZITHROMYCIN 500 MG TAB PO SCH ×2 (11:31→11:41)
[2020-04-13 12:21] LABS: Glucose,Whole Blood 309 mg/dL (75-99)
[2020-04-13 13:35] LABS: Glucose,Whole Blood 230 mg/dL (75-99)
[2020-04-13 13:43] LABS: Albumin 3.5 g/dL (3.5-5.0); Calcium 9.4 mg/dL (8.4-10.2); Potassium 4.2 mmol/L (3.5-5.1); Total Bilirubin 0.4 mg/dL (0.2-1.3); Total Protein 5.7 g/dL (6.3-8.2)
[2020-04-13 14:49] LABS: Glucose,Whole Blood 227 mg/dL (75-99)
--- NOTE | 2020-04-13 15:21 | P.HPIM ---
History of Present Illness H&P Date: 04/13/20 Chief Complaint: Altered mental status Patient is a 34-year-old male with a known history of asthma, diabetes type 1 and history of DKAs, anxiety/depression and previous history of smoking and occasional marijuana use presents to ER with altered mental status. Patient was hypothermic with a rectal temperature 88F on admission. Patient was confused and lethargic and not arousable. Blood pressure was 88/51 and heart rate 67, pulse ox was 98% on room air. Laboratory data showed WBC 48.5, hemoglobin 17.4 and platelets 353, MCV 100.5 Neutrophils 38.8 and ABG showed pH of less than 6.8 and pCO2 is a pleasant 15 on admission. Laboratory data showed sodium 138, potassium 5.9, chloride 103, bicarb less than 5 and BUE and 54 and creatinine 1.98 and blood sugar was 669 on admission, alkaline phosphatase 144 Urinalysis showed 1+ protein and 4+ glucose and 3+ ketones UDS negative A don't positive Chest x-ray showed mild right lower lobe infiltrate. Correlate for pneumonia or aspiration. In the ER patient was given IV fluid boluses and antibiotics in the form of cef triaxone. Patient was started on insulin drip and lites every 4 hours. Review of Systems Review of systems could not be obtained from the patient. Past Medical History Past Medical History: Asthma, Diabetes Mellitus, Skin Disorder Additional Past Medical History / Comment(s): IDDM type I, neuropathy bilateral feet, DKAs, eczema. History of Any Multi-Drug Resistant Organisms: None Reported Past Surgical History: Adenoidectomy Additional Past Surgical History / Comment(s): 2002 Past Anesthesia/Blood Transfusion Reactions: No Reported Reaction Past Psychological History: Anxiety, Depression Smoking Status: Former smoker Past Alcohol Use History: Occasional Past Drug Use History: Marijuana - Past Family History Mother Family Medical History: CVA/TIA Father Family Medical History: Hyperlipidemia, Hypertension Additional Family Medical History / Comment(s): . Medications and Allergies Home Medications Medication Instructions Recorded Confirmed Type Gabapentin [Neurontin] 600 mg PO BID 30 Days cap 09/01/19 04/12/20 Rx Insulin Lispro [Admelog] 10 units SQ AC-TID 09/01/19 04/12/20 History traZODone HCL [Desyrel] 200 mg PO HS 30 Days tab 09/01/19 04/12/20 Rx Insulin Lispro [Admelog] See Protocol SQ ACHS 12/15/19 04/12/20 History Insulin Glargine,Hum.rec.anlog 40 unit SQ DAILY 04/05/20 04/12/20 History [Lantus Solostar] Ondansetron [Zofran ODT] 4 mg PO Q8HR #12 tab 04/10/20 04/12/20 Rx Allergies Allergy/AdvReac Type Severity Reaction Status Date / Time No Known Allergies Allergy Verified 04/12/20 16:00 Physical Exam Vitals: Vital Signs Temp Pulse Resp BP Pulse Ox 04/13/20 08:00 97.8 F 112 H 18 140/89 95 04/13/20 05:30 97.5 F L 112 H 18 130/77 95 04/13/20 04:30 112 H 18 132/81 97 04/13/20 02:00 97.7 F 112 H 20 126/82 97 04/13/20 01:10 97.6 F 113 H 22 122/75 98 04/13/20 00:00 97.6 F 111 H 22 109/70 98 04/12/20 23:08 97.4 F L 113 H 22 109/72 99 04/12/20 22:32 97.6 F 110 H 28 H 109/70 98 04/12/20 21:56 97.4 F L 04/12/20 21:35 97.0 F L 108 H 26 H 110/67 97 04/12/20 21:00 105 H 26 H 100/64 98 04/12/20 20:33 98 20 108/61 99 04/12/20 20:00 94 24 91/61 98 04/12/20 19:43 91.5 F L 94 20 97/61 99 04/12/20 18:57 92.3 F L 95 20 105/61 99 04/12/20 17:59 91.1 F L 92 20 112/63 100 04/12/20 17:10 80 18 99/61 100 04/12/20 16:38 88.1 F L 76 18 100/56 100 04/12/20 16:21 71 20 88/54 99 04/12/20 15:53 69 18 93/58 100 04/12/20 15:33 88 F L 67 18 88/51 98 04/12/20 15:09 67 12 110/93 98 Intake and Output 04/12/20 04/13/20 04/13/20 22:59 06:59 14:59 Intake Total 95.815 1.647 Output Total 200 Balance -200 95.815 1.647 Intake: Intake, IV Titration 95.815 1.647 Amount Insulin Regular 100 unit 95.815 1.647 In Sodium Chloride 0.9% 100 ml @ 0.1 UNITS/KG/HR 7.323 mls/hr IV .[id number] [facility] Rx#:[id number] Output: Urine 200 Straight 200 Other: Weight 68.039 kg PHYSICAL EXAMINATION: Patient is lying in the bed . Currently lethargic and obtunded. HEENT: Normocephalic. Neck is supple. Pupils reactive. Nostrils clear. Oral cavity is moist. Ears reveal no drainage. Neck reveals no JVD, carotid bruits, or thyromegaly. CHEST EXAMINATION: Trachea is central. Symmetrical expansion. Bibasilar diminished air entry. No wheezing or crackles., Otherwise Lung brady clear to auscultation and percussion. CARDIAC: Normal S1, S2 with no gallops. No murmurs ABDOMEN: Soft. Nontender. Bowel sounds normal. No organomegaly. No abdominal bruits. Extremities: reveal no edema. No clubbing or cyanosis Neurologically patient is confused and lethargic and no gross focal neurological deficits. Skin: No rash or skin lesions. Psychiatric: Could not be obtained this time. Musculoskeletal: No joint swelling or deformity. Results CBC & Chem 7: 04/13/20 03:48 04/13/20 12:47 Labs: Abnormal Lab Results - Last 24 Hours (Table) 04/12/20 04/12/20 04/12/20 Range/Units 14:51 15:00 15:00 WBC 48.5 H (3.8-10.6) k/uL Hct 56.9 H (39.0-53.0) % MCV 100.5 H D (80.0-100.0) fL MCHC 30.6 L (31.0-37.0) g/dL Neutrophils # (Manual) 38.80 H (1.3-7.7) k/uL Lymphocytes # (Manual) 7.28 H (1.0-4.8) k/uL Monocytes # (Manual) (0-1.0) k/uL Metamyelocytes # (Man) 0.97 H (0) k/uL Myelocytes # (Manual) 1.46 H (0) k/uL ABG pH (7.35-7.45) ABG pCO2 (35-45) mmHg ABG pO2 (83-108) mmHg ABG HCO3 (21-25) mmol/L ABG Total CO2 (19-24) mmol/L ABG O2 Saturation (94-97) % Potassium 5.9 H (3.5-5.1) mmol/L Chloride (98-107) mmol/L Carbon Dioxide <5 L* (22-30) mmol/L BUN 54 H (9-20) mg/dL Creatinine 1.98 H (0.66-1.25) mg/dL Glucose 669 H* (74-99) mg/dL POC Glucose (mg/dL) 592 H (75-99) mg/dL Alkaline Phosphatase 144 H (38-126) U/L Total Protein (6.3-8.2) g/dL Urine Protein (Negative) Urine Glucose (UA) (Negative) Urine Ketones (Negative) Urine Blood (Negative) Urine WBC (0-5) /hpf Urine Bacteria (None) /hpf 04/12/20 04/12/20 04/12/20 Range/Units 15:24 16:26 16:44 WBC (3.8-10.6) k/uL Hct (39.0-53.0) % MCV (80.0-100.0) fL MCHC (31.0-37.0) g/dL Neutrophils # (Manual) (1.3-7.7) k/uL Lymphocytes # (Manual) (1.0-4.8) k/uL Monocytes # (Manual) (0-1.0) k/uL Metamyelocytes # (Man) (0) k/uL Myelocytes # (Manual) (0) k/uL ABG pH <6.80 L* (7.35-7.45) ABG pCO2 <15 L* (35-45) mmHg ABG pO2 170 H (83-108) mmHg ABG HCO3 16 L (21-25) mmol/L ABG Total CO2 99 H (19-24) mmol/L ABG O2 Saturation 99.0 H (94-97) % Potassium (3.5-5.1) mmol/L Chloride (98-107) mmol/L Carbon Dioxide (22-30) mmol/L BUN (9-20) mg/dL Creatinine (0.66-1.25) mg/dL Glucose (74-99) mg/dL POC Glucose (mg/dL) 493 H (75-99) mg/dL Alkaline Phosphatase (38-126) U/L Total Protein (6.3-8.2) g/dL Urine Protein 1+ H (Negative) Urine Glucose (UA) 4+ H (Negative) Urine Ketones 3+ H (Negative) Urine Blood Moderate H (Negative) Urine WBC 6 H (0-5) /hpf Urine Bacteria Rare H (None) /hpf 04/12/20 04/12/20 04/12/20 Range/Units 17:37 18:39 19:44 WBC (3.8-10.6) k/uL Hct (39.0-53.0) % MCV (80.0-100.0) fL MCHC (31.0-37.0) g/dL Neutrophils # (Manual) (1.3-7.7) k/uL Lymphocytes # (Manual) (1.0-4.8) k/uL Monocytes # (Manual) (0-1.0) k/uL Metamyelocytes # (Man) (0) k/uL Myelocytes # (Manual) (0) k/uL ABG pH (7.35-7.45) ABG pCO2 (35-45) mmHg ABG pO2 (83-108) mmHg ABG HCO3 (21-25) mmol/L ABG Total CO2 (19-24) mmol/L ABG O2 Saturation (94-97) % Potassium (3.5-5.1) mmol/L Chloride (98-107) mmol/L Carbon Dioxide (22-30) mmol/L BUN (9-20) mg/dL Creatinine (0.66-1.25) mg/dL Glucose (74-99) mg/dL POC Glucose (mg/dL) 452 H 428 H 367 H (75-99) mg/dL Alkaline Phosphatase (38-126) U/L Total Protein (6.3-8.2) g/dL Urine Protein (Negative) Urine Glucose (UA) (Negative) Urine Ketones (Negative) Urine Blood (Negative) Urine WBC (0-5) /hpf Urine Bacteria (None) /hpf 04/12/20 04/12/20 04/12/20 Range/Units 20:32 21:10 21:35 WBC (3.8-10.6) k/uL Hct (39.0-53.0) % MCV (80.0-100.0) fL MCHC (31.0-37.0) g/dL Neutrophils # (Manual) (1.3-7.7) k/uL Lymphocytes # (Manual) (1.0-4.8) k/uL Monocytes # (Manual) (0-1.0) k/uL Metamyelocytes # (Man) (0) k/uL Myelocytes # (Manual) (0) k/uL ABG pH (7.35-7.45) ABG pCO2 (35-45) mmHg ABG pO2 (83-108) mmHg ABG HCO3 (21-25) mmol/L ABG Total CO2 (19-24) mmol/L ABG O2 Saturation (94-97) % Potassium 5.4 H (3.5-5.1) mmol/L Chloride 116 H (98-107) mmol/L Carbon Dioxide <5 L* (22-30) mmol/L BUN 56 H (9-20) mg/dL Creatinine 1.87 H (0.66-1.25) mg/dL Glucose 303 H (74-99) mg/dL POC Glucose (mg/dL) 286 H 239 H (75-99) mg/dL Alkaline Phosphatase (38-126) U/L Total Protein 6.1 L (6.3-8.2) g/dL Urine Protein (Negative) Urine Glucose (UA) (Negative) Urine Ketones (Negative) Urine Blood (Negative) Urine WBC (0-5) /hpf Urine Bacteria (None) /hpf 04/12/20 04/12/20 04/12/20 Range/Units 22:30 22:59 23:54 WBC (3.8-10.6) k/uL Hct (39.0-53.0) % MCV (80.0-100.0) fL MCHC (31.0-37.0) g/dL Neutrophils # (Manual) (1.3-7.7) k/uL Lymphocytes # (Manual) (1.0-4.8) k/uL Monocytes # (Manual) (0-1.0) k/uL Metamyelocytes # (Man) (0) k/uL Myelocytes # (Manual) (0) k/uL ABG pH (7.35-7.45) ABG pCO2 (35-45) mmHg ABG pO2 (83-108) mmHg ABG HCO3 (21-25) mmol/L ABG Total CO2 (19-24) mmol/L ABG O2 Saturation (94-97) % Potassium (3.5-5.1) mmol/L Chloride (98-107) mmol/L Carbon Dioxide (22-30) mmol/L BUN (9-20) mg/dL Creatinine (0.66-1.25) mg/dL Glucose (74-99) mg/dL POC Glucose (mg/dL) 257 H 262 H 210 H (75-99) mg/dL Alkaline Phosphatase (38-126) U/L Total Protein (6.3-8.2) g/dL Urine Protein (Negative) Urine Glucose (UA) (Negative) Urine Ketones (Negative) Urine Blood (Negative) Urine WBC (0-5) /hpf Urine Bacteria (None) /hpf 04/13/20 04/13/20 04/13/20 Range/Units 00:59 01:07 02:08 WBC (3.8-10.6) k/uL Hct (39.0-53.0) % MCV (80.0-100.0) fL MCHC (31.0-37.0) g/dL Neutrophils # (Manual) (1.3-7.7) k/uL Lymphocytes # (Manual) (1.0-4.8) k/uL Monocytes # (Manual) (0-1.0) k/uL Metamyelocytes # (Man) (0) k/uL Myelocytes # (Manual) (0) k/uL ABG pH (7.35-7.45) ABG pCO2 (35-45) mmHg ABG pO2 (83-108) mmHg ABG HCO3 (21-25) mmol/L ABG Total CO2 (19-24) mmol/L ABG O2 Saturation (94-97) % Potassium (3.5-5.1) mmol/L Chloride 117 H (98-107) mmol/L Carbon Dioxide 5 L* (22-30) mmol/L BUN 59 H (9-20) mg/dL Creatinine 1.75 H (0.66-1.25) mg/dL Glucose 201 H (74-99) mg/dL POC Glucose (mg/dL) 170 H 178 H (75-99) mg/dL Alkaline Phosphatase (38-126) U/L Total Protein 6.0 L (6.3-8.2) g/dL Urine Protein (Negative) Urine Glucose (UA) (Negative) Urine Ketones (Negative) Urine Blood (Negative) Urine WBC (0-5) /hpf Urine Bacteria (None) /hpf 04/13/20 04/13/20 04/13/20 Range/Units 03:15 03:48 03:48 WBC 23.6 H (3.8-10.6) k/uL Hct (39.0-53.0) % MCV (80.0-100.0) fL MCHC (31.0-37.0) g/dL Neutrophils # (Manual) 19.80 H (1.3-7.7) k/uL Lymphocytes # (Manual) (1.0-4.8) k/uL Monocytes # (Manual) 1.89 H (0-1.0) k/uL Metamyelocytes # (Man) (0) k/uL Myelocytes # (Manual) (0) k/uL ABG pH (7.35-7.45) ABG pCO2 (35-45) mmHg ABG pO2 (83-108) mmHg ABG HCO3 (21-25) mmol/L ABG Total CO2 (19-24) mmol/L ABG O2 Saturation (94-97) % Potassium (3.5-5.1) mmol/L Chloride 119 H (98-107) mmol/L Carbon Dioxide 8 L* (22-30) mmol/L BUN 61 H (9-20) mg/dL Creatinine 1.69 H (0.66-1.25) mg/dL Glucose 138 H (74-99) mg/dL POC Glucose (mg/dL) 128 H (75-99) mg/dL Alkaline Phosphatase (38-126) U/L Total Protein 6.0 L (6.3-8.2) g/dL Urine Protein (Negative) Urine Glucose (UA) (Negative) Urine Ketones (Negative) Urine Blood (Negative) Urine WBC (0-5) /hpf Urine Bacteria (None) /hpf 04/13/20 04/13/20 04/13/20 Range/Units 04:16 05:18 06:18 WBC (3.8-10.6) k/uL Hct (39.0-53.0) % MCV (80.0-100.0) fL MCHC (31.0-37.0) g/dL Neutrophils # (Manual) (1.3-7.7) k/uL Lymphocytes # (Manual) (1.0-4.8) k/uL Monocytes # (Manual) (0-1.0) k/uL Metamyelocytes # (Man) (0) k/uL Myelocytes # (Manual) (0) k/uL ABG pH (7.35-7.45) ABG pCO2 (35-45) mmHg ABG pO2 (83-108) mmHg ABG HCO3 (21-25) mmol/L ABG Total CO2 (19-24) mmol/L ABG O2 Saturation (94-97) % Potassium (3.5-5.1) mmol/L Chloride (98-107) mmol/L Carbon Dioxide (22-30) mmol/L BUN (9-20) mg/dL Creatinine (0.66-1.25) mg/dL Glucose (74-99) mg/dL POC Glucose (mg/dL) 129 H 115 H 139 H (75-99) mg/dL Alkaline Phosphatase (38-126) U/L Total Protein (6.3-8.2) g/dL Urine Protein (Negative) Urine Glucose (UA) (Negative) Urine Ketones (Negative) Urine Blood (Negative) Urine WBC (0-5) /hpf Urine Bacteria (None) /hpf 04/13/20 04/13/20 04/13/20 Range/Units 07:23 08:27 08:36 WBC (3.8-10.6) k/uL Hct (39.0-53.0) % MCV (80.0-100.0) fL MCHC (31.0-37.0) g/dL Neutrophils # (Manual) (1.3-7.7) k/uL Lymphocytes # (Manual) (1.0-4.8) k/uL Monocytes # (Manual) (0-1.0) k/uL Metamyelocytes # (Man) (0) k/uL Myelocytes # (Manual) (0) k/uL ABG pH (7.35-7.45) ABG pCO2 (35-45) mmHg ABG pO2 (83-108) mmHg ABG HCO3 (21-25) mmol/L ABG Total CO2 (19-24) mmol/L ABG O2 Saturation (94-97) % Potassium (3.5-5.1) mmol/L Chloride 118 H (98-107) mmol/L Carbon Dioxide <5 L* (22-30) mmol/L BUN 61 H (9-20) mg/dL Creatinine 1.75 H (0.66-1.25) mg/dL Glucose 238 H (74-99) mg/dL POC Glucose (mg/dL) 203 H 219 H (75-99) mg/dL Alkaline Phosphatase (38-126) U/L Total Protein 6.0 L (6.3-8.2) g/dL Urine Protein (Negative) Urine Glucose (UA) (Negative) Urine Ketones (Negative) Urine Blood (Negative) Urine WBC (0-5) /hpf Urine Bacteria (None) /hpf 04/13/20 Range/Units 09:32 WBC (3.8-10.6) k/uL Hct (39.0-53.0) % MCV (80.0-100.0) fL MCHC (31.0-37.0) g/dL Neutrophils # (Manual) (1.3-7.7) k/uL Lymphocytes # (Manual) (1.0-4.8) k/uL Monocytes # (Manual) (0-1.0) k/uL Metamyelocytes # (Man) (0) k/uL Myelocytes # (Manual) (0) k/uL ABG pH (7.35-7.45) ABG pCO2 (35-45) mmHg ABG pO2 (83-108) mmHg ABG HCO3 (21-25) mmol/L ABG Total CO2 (19-24) mmol/L ABG O2 Saturation (94-97) % Potassium (3.5-5.1) mmol/L Chloride (98-107) mmol/L Carbon Dioxide (22-30) mmol/L BUN (9-20) mg/dL Creatinine (0.66-1.25) mg/dL Glucose (74-99) mg/dL POC Glucose (mg/dL) 317 H (75-99) mg/dL Alkaline Phosphatase (38-126) U/L Total Protein (6.3-8.2) g/dL Urine Protein (Negative) Urine Glucose (UA) (Negative) Urine Ketones (Negative) Urine Blood (Negative) Urine WBC (0-5) /hpf Urine Bacteria (None) /hpf Thrombosis Risk Factor Assmnt - DVT/VTE Prophylaxis DVT/VTE Prophylaxis: Pharmacologic Prophylaxis ordered Assessment and Plan Assessment: Acute diabetic ketoacidosis Altered mental status possible metabolic encephalopathy secondary to acidosis Leukemoid reaction. Possible aspiration pneumonia Severe hypokalemia on admission with rectal temperature 88F Previous history of DKA's Diabetes type 1 Asthma not in exacerbation Anxiety/depression Previous history of smoking and occasional marijuana use DVT prophylaxis and GI prophylaxis Plan: Patient will be continued on IV hydration and continue with insulin drip at 1 unit per KG body weight per hour. Monitor CBG every hour and and electrolytes every 4 hours. Warm blanket and continue with antibiotics and quickly in the form of ceftriax one. Follow-up culture reports. Patient will be monitored in the MICU. Time with Patient: Greater than 30
[2020-04-13] MEDS ORDERED: HEPARIN SODIUM,PORCINE 5,000 UNIT/ML 1 ML VIAL SQ SCH (16:00)
[2020-04-13 16:15] LABS: Glucose,Whole Blood 200 mg/dL (75-99)
--- NOTE | 2020-04-13 16:19 | P.PN ---
Subjective Progress Note Date: 04/13/20 On today's evaluation, the patient is still lethargic and somnolent. The patient is still being treated for his acute DKA. Overnight, the patient was aggressively resuscitated IV fluids. This morning, the patient is still on normal saline at rate of 100 mL an hour. Insulin drip is running at 2.5 units an hour. Most recent blood sugar is still above 300. His serum bicarbonate is gradually improving. His current serum bicarbonate is at 8 and anion gap metabolic acidosis. 19. The most recent blood sugars of 275 and the patient will be ultimately switched to D5 half-normal saline. His white cell count is improved. He is afebrile. His temperature has aggravated as the patient was profoundly hypothermic at a time of admission. He is in sinus tachycardia although the tachycardia is improved compared to yesterday. Objective - Vital Signs Vital signs: Vital Signs Temp 97.4 F L 04/13/20 12:30 Pulse 122 H 04/13/20 13:30 Resp 18 04/13/20 13:30 BP 139/87 04/13/20 13:30 Pulse Ox 96 04/13/20 13:30 Intake & Output 04/12/20 04/13/20 04/13/20 18:59 06:59 18:59 Intake Total 95.815 5.185 Output Total 200 Balance -200 95.815 5.185 Weight 68.039 kg Intake: Intake, IV Titration 95.815 5.185 Amount Insulin Regular 100 unit 95.815 5.185 In Sodium Chloride 0.9% 100 ml @ 0.1 UNITS/KG/HR 7.323 mls/hr IV .[id number] [facility] Rx#:[id number] Output: Urine 200 Straight 200 - Exam lethargic, sleepy and drowsy, nonacute respiratory distress, hypothermic and the patient is receiving external warming Head exam was generally normal. There was no scleral icterus or corneal arcus. Mucous membranes were moist. Neck was supple and without jugular venous distension, thyromegaly, or carotid bruits. Carotids were easily palpable bilaterally. There was no adenopathy. Cardiac exam revealed the PMI to be normally situated and sized. The rhythm was regular and no extrasystoles were noted during several minutes of auscultation. The first and second heart sounds were normal and physiologic splitting of the second heart sound was noted. There were no murmurs, rubs, clicks, or gallops. Lungs were clear to auscultation and percussion, and with normal diaphragmatic excursion. No wheezes or rales were noted. Abdominal exam revealed normal bowel sounds. The abdomen was soft, non-tender, and without masses, organomegaly, or appreciable enlargement of the abdominal aorta. Examination of the extremities revealed easily palpable radial, femoral and pedal pulses. There was no cyanosis, clubbing or edema. Examination of the skin revealed no evidence of significant rashes, suspicious appearing nevi or other concerning lesions. Neurologically the patient is quite somnolent and sleepy and confused and very slow in answering questions. He is moving all 4 extremities. Pupils are equal and reactive to light. No focal neurological deficit at this point in time. - Labs CBC & Chem 7: 04/13/20 03:48 04/13/20 12:47 Labs: Abnormal Lab Results - Last 24 Hours (Table) 04/12/20 04/12/20 04/12/20 Range/Units 15:24 16:26 16:44 WBC (3.8-10.6) k/uL Neutrophils # (Manual) (1.3-7.7) k/uL Monocytes # (Manual) (0-1.0) k/uL ABG pO2 170 H (83-108) mmHg ABG HCO3 16 L (21-25) mmol/L ABG O2 Saturation 99.0 H (94-97) % Potassium (3.5-5.1) mmol/L Chloride (98-107) mmol/L Carbon Dioxide (22-30) mmol/L BUN (9-20) mg/dL Creatinine (0.66-1.25) mg/dL Glucose (74-99) mg/dL POC Glucose (mg/dL) 493 H (75-99) mg/dL Total Protein (6.3-8.2) g/dL Urine Protein 1+ H (Negative) Urine Glucose (UA) 4+ H (Negative) Urine Ketones 3+ H (Negative) Urine Blood Moderate H (Negative) Urine WBC 6 H (0-5) /hpf Urine Bacteria Rare H (None) /hpf 04/12/20 04/12/20 04/12/20 Range/Units 17:37 18:39 19:44 WBC (3.8-10.6) k/uL Neutrophils # (Manual) (1.3-7.7) k/uL Monocytes # (Manual) (0-1.0) k/uL ABG pO2 (83-108) mmHg ABG HCO3 (21-25) mmol/L ABG O2 Saturation (94-97) % Potassium (3.5-5.1) mmol/L Chloride (98-107) mmol/L Carbon Dioxide (22-30) mmol/L BUN (9-20) mg/dL Creatinine (0.66-1.25) mg/dL Glucose (74-99) mg/dL POC Glucose (mg/dL) 452 H 428 H 367 H (75-99) mg/dL Total Protein (6.3-8.2) g/dL Urine Protein (Negative) Urine Glucose (UA) (Negative) Urine Ketones (Negative) Urine Blood (Negative) Urine WBC (0-5) /hpf Urine Bacteria (None) /hpf 04/12/20 04/12/20 04/12/20 Range/Units 20:32 21:10 21:35 WBC (3.8-10.6) k/uL Neutrophils # (Manual) (1.3-7.7) k/uL Monocytes # (Manual) (0-1.0) k/uL ABG pO2 (83-108) mmHg ABG HCO3 (21-25) mmol/L ABG O2 Saturation (94-97) % Potassium 5.4 H (3.5-5.1) mmol/L Chloride 116 H (98-107) mmol/L Carbon Dioxide <5 L* (22-30) mmol/L BUN 56 H (9-20) mg/dL Creatinine 1.87 H (0.66-1.25) mg/dL Glucose 303 H (74-99) mg/dL POC Glucose (mg/dL) 286 H 239 H (75-99) mg/dL Total Protein 6.1 L (6.3-8.2) g/dL Urine Protein (Negative) Urine Glucose (UA) (Negative) Urine Ketones (Negative) Urine Blood (Negative) Urine WBC (0-5) /hpf Urine Bacteria (None) /hpf 04/12/20 04/12/20 04/12/20 Range/Units 22:30 22:59 23:54 WBC (3.8-10.6) k/uL Neutrophils # (Manual) (1.3-7.7) k/uL Monocytes # (Manual) (0-1.0) k/uL ABG pO2 (83-108) mmHg ABG HCO3 (21-25) mmol/L ABG O2 Saturation (94-97) % Potassium (3.5-5.1) mmol/L Chloride (98-107) mmol/L Carbon Dioxide (22-30) mmol/L BUN (9-20) mg/dL Creatinine (0.66-1.25) mg/dL Glucose (74-99) mg/dL POC Glucose (mg/dL) 257 H 262 H 210 H (75-99) mg/dL Total Protein (6.3-8.2) g/dL Urine Protein (Negative) Urine Glucose (UA) (Negative) Urine Ketones (Negative) Urine Blood (Negative) Urine WBC (0-5) /hpf Urine Bacteria (None) /hpf 04/13/20 04/13/20 04/13/20 Range/Units 00:59 01:07 02:08 WBC (3.8-10.6) k/uL Neutrophils # (Manual) (1.3-7.7) k/uL Monocytes # (Manual) (0-1.0) k/uL ABG pO2 (83-108) mmHg ABG HCO3 (21-25) mmol/L ABG O2 Saturation (94-97) % Potassium (3.5-5.1) mmol/L Chloride 117 H (98-107) mmol/L Carbon Dioxide 5 L* (22-30) mmol/L BUN 59 H (9-20) mg/dL Creatinine 1.75 H (0.66-1.25) mg/dL Glucose 201 H (74-99) mg/dL POC Glucose (mg/dL) 170 H 178 H (75-99) mg/dL Total Protein 6.0 L (6.3-8.2) g/dL Urine Protein (Negative) Urine Glucose (UA) (Negative) Urine Ketones (Negative) Urine Blood (Negative) Urine WBC (0-5) /hpf Urine Bacteria (None) /hpf 04/13/20 04/13/20 04/13/20 Range/Units 03:15 03:48 03:48 WBC 23.6 H (3.8-10.6) k/uL Neutrophils # (Manual) 19.80 H (1.3-7.7) k/uL Monocytes # (Manual) 1.89 H (0-1.0) k/uL ABG pO2 (83-108) mmHg ABG HCO3 (21-25) mmol/L ABG O2 Saturation (94-97) % Potassium (3.5-5.1) mmol/L Chloride 119 H (98-107) mmol/L Carbon Dioxide 8 L* (22-30) mmol/L BUN 61 H (9-20) mg/dL Creatinine 1.69 H (0.66-1.25) mg/dL Glucose 138 H (74-99) mg/dL POC Glucose (mg/dL) 128 H (75-99) mg/dL Total Protein 6.0 L (6.3-8.2) g/dL Urine Protein (Negative) Urine Glucose (UA) (Negative) Urine Ketones (Negative) Urine Blood (Negative) Urine WBC (0-5) /hpf Urine Bacteria (None) /hpf 04/13/20 04/13/20 04/13/20 Range/Units 04:16 05:18 06:18 WBC (3.8-10.6) k/uL Neutrophils # (Manual) (1.3-7.7) k/uL Monocytes # (Manual) (0-1.0) k/uL ABG pO2 (83-108) mmHg ABG HCO3 (21-25) mmol/L ABG O2 Saturation (94-97) % Potassium (3.5-5.1) mmol/L Chloride (98-107) mmol/L Carbon Dioxide (22-30) mmol/L BUN (9-20) mg/dL Creatinine (0.66-1.25) mg/dL Glucose (74-99) mg/dL POC Glucose (mg/dL) 129 H 115 H 139 H (75-99) mg/dL Total Protein (6.3-8.2) g/dL Urine Protein (Negative) Urine Glucose (UA) (Negative) Urine Ketones (Negative) Urine Blood (Negative) Urine WBC (0-5) /hpf Urine Bacteria (None) /hpf 04/13/20 04/13/20 04/13/20 Range/Units 07:23 08:27 08:36 WBC (3.8-10.6) k/uL Neutrophils # (Manual) (1.3-7.7) k/uL Monocytes # (Manual) (0-1.0) k/uL ABG pO2 (83-108) mmHg ABG HCO3 (21-25) mmol/L ABG O2 Saturation (94-97) % Potassium (3.5-5.1) mmol/L Chloride 118 H (98-107) mmol/L Carbon Dioxide <5 L* (22-30) mmol/L BUN 61 H (9-20) mg/dL Creatinine 1.75 H (0.66-1.25) mg/dL Glucose 238 H (74-99) mg/dL POC Glucose (mg/dL) 203 H 219 H (75-99) mg/dL Total Protein 6.0 L (6.3-8.2) g/dL Urine Protein (Negative) Urine Glucose (UA) (Negative) Urine Ketones (Negative) Urine Blood (Negative) Urine WBC (0-5) /hpf Urine Bacteria (None) /hpf 04/13/20 04/13/20 04/13/20 Range/Units 09:32 10:27 11:13 WBC (3.8-10.6) k/uL Neutrophils # (Manual) (1.3-7.7) k/uL Monocytes # (Manual) (0-1.0) k/uL ABG pO2 (83-108) mmHg ABG HCO3 (21-25) mmol/L ABG O2 Saturation (94-97) % Potassium (3.5-5.1) mmol/L Chloride (98-107) mmol/L Carbon Dioxide (22-30) mmol/L BUN (9-20) mg/dL Creatinine (0.66-1.25) mg/dL Glucose (74-99) mg/dL POC Glucose (mg/dL) 317 H 304 H 254 H (75-99) mg/dL Total Protein (6.3-8.2) g/dL Urine Protein (Negative) Urine Glucose (UA) (Negative) Urine Ketones (Negative) Urine Blood (Negative) Urine WBC (0-5) /hpf Urine Bacteria (None) /hpf 04/13/20 04/13/20 04/13/20 Range/Units 12:19 12:47 13:33 WBC (3.8-10.6) k/uL Neutrophils # (Manual) (1.3-7.7) k/uL Monocytes # (Manual) (0-1.0) k/uL ABG pO2 (83-108) mmHg ABG HCO3 (21-25) mmol/L ABG O2 Saturation (94-97) % Potassium (3.5-5.1) mmol/L Chloride 118 H (98-107) mmol/L Carbon Dioxide 8 L* (22-30) mmol/L BUN 63 H (9-20) mg/dL Creatinine 1.73 H (0.66-1.25) mg/dL Glucose 275 H (74-99) mg/dL POC Glucose (mg/dL) 309 H 230 H (75-99) mg/dL Total Protein 5.7 L (6.3-8.2) g/dL Urine Protein (Negative) Urine Glucose (UA) (Negative) Urine Ketones (Negative) Urine Blood (Negative) Urine WBC (0-5) /hpf Urine Bacteria (None) /hpf 04/13/20 Range/Units 14:46 WBC (3.8-10.6) k/uL Neutrophils # (Manual) (1.3-7.7) k/uL Monocytes # (Manual) (0-1.0) k/uL ABG pO2 (83-108) mmHg ABG HCO3 (21-25) mmol/L ABG O2 Saturation (94-97) % Potassium (3.5-5.1) mmol/L Chloride (98-107) mmol/L Carbon Dioxide (22-30) mmol/L BUN (9-20) mg/dL Creatinine (0.66-1.25) mg/dL Glucose (74-99) mg/dL POC Glucose (mg/dL) 227 H (75-99) mg/dL Total Protein (6.3-8.2) g/dL Urine Protein (Negative) Urine Glucose (UA) (Negative) Urine Ketones (Negative) Urine Blood (Negative) Urine WBC (0-5) /hpf Urine Bacteria (None) /hpf Assessment and Plan Plan: 1 DKA with severe metabolic acidosis and anion gap type. We'll likely improving. Anion gap metabolic acidosis still present in the serum bicarb is up to 8. She remains on insulin drip. 2 leukocytosis, likely reactive , improving 3 severe hypothermia , improving 4 altered mentation secondary to above 5 diabetes mellitus 1 maintained on Lantus insulin outpatient basis 6 Previous history of DKA 7 bronchial asthma mild intermittent in nature 8 depression 9 Anxiety 10 previous history of use of marijuana and history of stimulant use. plan Continue insulin drip at the same rate of 2.5 units Normal state rate of 130 mL an hour and stress this patient to D5 half-normal once blood sugar is below 250 External warming has been performed Blood sugar measurement every 1 hour CMP every 4 hours IV Rocephin as emperic antibiotic coverage Aspiration precautions and repeat chest x-ray in a.m. Heparin subcu for DVT prophylaxis Transferred to the ICU once a bed available we'll continue to follow
[2020-04-13 17:44] LABS: Glucose,Whole Blood 196 mg/dL (75-99)
[2020-04-13 18:05] LABS: Albumin 3.4 g/dL (3.5-5.0); Calcium 9.5 mg/dL (8.4-10.2); Potassium 4.1 mmol/L (3.5-5.1); Total Bilirubin 0.4 mg/dL (0.2-1.3); Total Protein 5.8 g/dL (6.3-8.2)
[2020-04-13 19:22] LABS: Glucose,Whole Blood 189 mg/dL (75-99)
[2020-04-13 20:28] LABS: Glucose,Whole Blood 202 mg/dL (75-99)
[2020-04-13 21:09] LABS: Glucose,Whole Blood 195 mg/dL (75-99)
[2020-04-13] MEDS: ONDANSETRON 4 MG/2 ML VIAL IVP PRN (21:48)
[2020-04-13 21:59] LABS: Albumin 3.5 g/dL (3.5-5.0); Calcium 9.6 mg/dL (8.4-10.2); Total Bilirubin 0.4 mg/dL (0.2-1.3); Total Protein 5.9 g/dL (6.3-8.2)
[2020-04-13 22:09] LABS: Glucose,Whole Blood 198 mg/dL (75-99)
[2020-04-13 23:12] LABS: Glucose,Whole Blood 205 mg/dL (75-99)
[2020-04-14 00:12] LABS: Glucose,Whole Blood 206 mg/dL (75-99)
[2020-04-14 01:05] LABS: Glucose,Whole Blood 195 mg/dL (75-99)
[2020-04-14 02:44] LABS: Glucose,Whole Blood 225 mg/dL (75-99)
[2020-04-14 03:18] LABS: Glucose,Whole Blood 249 mg/dL (75-99)
[2020-04-14 04:12] LABS: Glucose,Whole Blood 238 mg/dL (75-99)
[2020-04-14 05:07] LABS: Albumin 3.1 g/dL (3.5-5.0); Calcium 9.3 mg/dL (8.4-10.2); Potassium 3.7 mmol/L (3.5-5.1); Total Bilirubin 0.4 mg/dL (0.2-1.3); Total Protein 5.3 g/dL (6.3-8.2)
[2020-04-14 05:10] LABS: Glucose,Whole Blood 250 mg/dL (75-99)
[2020-04-14] MEDS: SODIUM CHLORIDE 0.9% 1,000 ML IV SCH ×3 (05:14→13:59)
[2020-04-14] MEDS: HEPARIN SODIUM,PORCINE 5,000 UNIT/ML 1 ML VIAL SQ SCH ×3 (05:21→15:24)
[2020-04-14 06:06] LABS: Glucose,Whole Blood 263 mg/dL (75-99)
[2020-04-14 07:11] LABS: Glucose,Whole Blood 252 mg/dL (75-99)
[2020-04-14 07:31] LABS: MCV 91.5 fL (80.0-100.0)
[2020-04-14 07:48] LABS: Glucose,Whole Blood 238 mg/dL (75-99)
[2020-04-14] MEDS: PANTOPRAZOLE 40 MG/10 ML VIAL IV SCH (08:20)
[2020-04-14] MEDS: ONDANSETRON 4 MG/2 ML VIAL IVP PRN (09:00)
[2020-04-14 09:14] LABS: Albumin 3.1 g/dL (3.5-5.0); Calcium 9.1 mg/dL (8.4-10.2); Potassium 3.7 mmol/L (3.5-5.1); Total Bilirubin 0.5 mg/dL (0.2-1.3); Total Protein 5.3 g/dL (6.3-8.2)
[2020-04-14 10:13] VITALS: BMI 19.8
[2020-04-14 10:33] LABS: Glucose,Whole Blood 223 mg/dL (75-99)
[2020-04-14 10:40] LABS: Amylase 194 U/L (30-110); Lipase 311 U/L (23-300)
[2020-04-14] MEDS ORDERED: INSULIN REGULAR 100 UNIT in SODIUM CHLORIDE 0.9% 100 ML IV SCH (11:15)
[2020-04-14 11:47] LABS: Glucose,Whole Blood 210 mg/dL (75-99)
[2020-04-14] MEDS: METOCLOPRAMIDE 5 MG/ML 2 ML VIAL IVP SCH ×2 (12:23→16:52)
[2020-04-14] MEDS ORDERED: D5-0.45% NACL WITH KCL 20MEQ/L 1,000 ML IV SCH (13:00)
[2020-04-14] MEDS ORDERED: NON FORMULARY DRUG (Insulin Glargine,Hum.Rec.Anlog [Lantus Solostar] 100 UNIT/ML Insuln.Pe SQ SCH (13:30)
[2020-04-14 13:55] LABS: Glucose,Whole Blood 195 mg/dL (75-99)
--- NOTE | 2020-04-14 15:42 | P.PN ---
Subjective Progress Note Date: 04/14/20 Principal diagnosis: Diabetic ketoacidosis On 04/14/2020 patient seen in follow-up on general medical surgical floor. He was seen earlier today in the ICU, he is more awake today, although still nauseous, has not eaten much, he doesn't feel hungry, and he had a few episodes of emesis. He is on room air, pulse ox is 98-99%, slightly tachycardic on the monitor, with a rate of 102 BPM, he's been afebrile, hemodynamically stable. Remains on D5 half-normal saline with 20 of potassium running at 150, he is an insulin infusion currently at 5.5 units per hour. The labs reviewed showing 97, CO2 improved, and is up to 20, BUN 51 and creatinine is 1.38. Amylase and lipase came back elevated at 194 at 311 respectively. Objective - Vital Signs Vital signs: Vital Signs Temp 97.8 F 04/14/20 14:50 Pulse 102 H 04/14/20 14:50 Resp 16 04/14/20 14:50 BP 122/88 04/14/20 14:50 Pulse Ox 98 04/14/20 14:50 Intake & Output 04/13/20 04/14/20 04/14/20 18:59 06:59 18:59 Intake Total 5.185 181.994 0589.997 Output Total 350 300 Balance 5.185 -130.098 9386.997 Weight 68.039 kg Intake: IV 100 1200 D5-0.45% NaCl with KCl 100 1200 20Meq/l 1,000 ml @ 100 mls/hr IV .Q10H [facility] Rx#: [id number] Intake, IV Titration 5.185 50.399 114.997 Amount Insulin Regular 100 unit 5.185 50.399 32.845 In Sodium Chloride 0.9% 100 ml @ 5.17 UNITS/KG/HR 378.573 mls/hr IV .Q16M [facility] Rx#:[id number] Insulin Regular 100 unit 7.152 In Sodium Chloride 0.9% 100 ml @ Titrate IV .Q0M [facility] Rx#:[id number] Sodium Chloride 0.9% 1, 75 000 ml @ 75 mls/hr IV . [id number] [facility] Rx#:[id number] Oral 100 Output: Urine 350 300 Other: # Voids 1 - Exam GENERAL EXAM: Lethargic but arousable, and 24-year-old white male, laying comfortably in bed,, comfortable in no apparent distress. HEAD: Normocephalic/atraumatic. EYES: Normal reaction of pupils, equal size. Conjunctiva pink, sclera white. NOSE: Clear with pink turbinates. THROAT: No erythema or exudates. NECK: No masses, no JVD, no thyroid enlargement, no adenopathy. CHEST: No chest wall deformity. Symmetrical expansion. LUNGS: Equal air entry with no crackles, wheeze, rhonchi or dullness. CVS: Regular rate and rhythm, normal S1 and S2, no gallops, no murmurs, no rubs ABDOMEN: Soft, nontender. No hepatosplenomegaly, normal bowel sounds, no guarding or rigidity. EXTREMITIES: No clubbing, no edema, no cyanosis, 2+ pulses and upper and lower extremities. MUSCULOSKELETAL: Muscle strength and tone normal. SPINE: No scoliosis or deformity SKIN: No rashes CENTRAL NERVOUS SYSTEM: Alert and oriented -3. No focal deficits, tone is normal in all 4 extremities. PSYCHIATRIC: Alert and oriented -3. Appropriate affect. Intact judgment and insight. - Labs CBC & Chem 7: 04/13/20 03:48 04/14/20 08:39 Labs: Abnormal Lab Results - Last 24 Hours (Table) 04/13/20 04/13/20 04/13/20 Range/Units 16:13 17:07 17:43 Sodium (137-145) mmol/L Chloride 120 H (98-107) mmol/L Carbon Dioxide 12 L (22-30) mmol/L BUN 62 H (9-20) mg/dL Creatinine 1.62 H (0.66-1.25) mg/dL Glucose 221 H (74-99) mg/dL POC Glucose (mg/dL) 200 H 196 H (75-99) mg/dL Total Protein 5.8 L (6.3-8.2) g/dL Albumin 3.4 L (3.5-5.0) g/dL Amylase (30-110) U/L Lipase (23-300) U/L 04/13/20 04/13/20 04/13/20 Range/Units 19:20 20:27 21:08 Sodium (137-145) mmol/L Chloride (98-107) mmol/L Carbon Dioxide (22-30) mmol/L BUN (9-20) mg/dL Creatinine (0.66-1.25) mg/dL Glucose (74-99) mg/dL POC Glucose (mg/dL) 189 H 202 H 195 H (75-99) mg/dL Total Protein (6.3-8.2) g/dL Albumin (3.5-5.0) g/dL Amylase (30-110) U/L Lipase (23-300) U/L 04/13/20 04/13/20 04/13/20 Range/Units 21:40 22:07 23:11 Sodium 146 H (137-145) mmol/L Chloride 119 H (98-107) mmol/L Carbon Dioxide 14 L (22-30) mmol/L BUN 59 H (9-20) mg/dL Creatinine 1.60 H (0.66-1.25) mg/dL Glucose 218 H (74-99) mg/dL POC Glucose (mg/dL) 198 H 205 H (75-99) mg/dL Total Protein 5.9 L (6.3-8.2) g/dL Albumin (3.5-5.0) g/dL Amylase (30-110) U/L Lipase (23-300) U/L 04/14/20 04/14/20 04/14/20 Range/Units 00:00 01:03 02:32 Sodium (137-145) mmol/L Chloride (98-107) mmol/L Carbon Dioxide (22-30) mmol/L BUN (9-20) mg/dL Creatinine (0.66-1.25) mg/dL Glucose (74-99) mg/dL POC Glucose (mg/dL) 206 H 195 H 225 H (75-99) mg/dL Total Protein (6.3-8.2) g/dL Albumin (3.5-5.0) g/dL Amylase (30-110) U/L Lipase (23-300) U/L 04/14/20 04/14/20 04/14/20 Range/Units 03:16 04:10 04:43 Sodium (137-145) mmol/L Chloride 118 H (98-107) mmol/L Carbon Dioxide 17 L (22-30) mmol/L BUN 53 H (9-20) mg/dL Creatinine 1.48 H (0.66-1.25) mg/dL Glucose 262 H (74-99) mg/dL POC Glucose (mg/dL) 249 H 238 H (75-99) mg/dL Total Protein 5.3 L (6.3-8.2) g/dL Albumin 3.1 L (3.5-5.0) g/dL Amylase (30-110) U/L Lipase (23-300) U/L 04/14/20 04/14/20 04/14/20 Range/Units 05:07 06:04 06:58 Sodium (137-145) mmol/L Chloride (98-107) mmol/L Carbon Dioxide (22-30) mmol/L BUN (9-20) mg/dL Creatinine (0.66-1.25) mg/dL Glucose (74-99) mg/dL POC Glucose (mg/dL) 250 H 263 H 252 H (75-99) mg/dL Total Protein (6.3-8.2) g/dL Albumin (3.5-5.0) g/dL Amylase (30-110) U/L Lipase (23-300) U/L 04/14/20 04/14/20 04/14/20 Range/Units 07:47 08:39 08:39 Sodium (137-145) mmol/L Chloride 118 H (98-107) mmol/L Carbon Dioxide 20 L (22-30) mmol/L BUN 51 H (9-20) mg/dL Creatinine 1.38 H (0.66-1.25) mg/dL Glucose 274 H (74-99) mg/dL POC Glucose (mg/dL) 238 H (75-99) mg/dL Total Protein 5.3 L (6.3-8.2) g/dL Albumin 3.1 L (3.5-5.0) g/dL Amylase 194 H (30-110) U/L Lipase 311 H (23-300) U/L 04/14/20 04/14/20 04/14/20 Range/Units 10:31 11:45 13:52 Sodium (137-145) mmol/L Chloride (98-107) mmol/L Carbon Dioxide (22-30) mmol/L BUN (9-20) mg/dL Creatinine (0.66-1.25) mg/dL Glucose (74-99) mg/dL POC Glucose (mg/dL) 223 H 210 H 195 H (75-99) mg/dL Total Protein (6.3-8.2) g/dL Albumin (3.5-5.0) g/dL Amylase (30-110) U/L Lipase (23-300) U/L Microbiology - Last 24 Hours (Table) 04/12/20 17:33 Blood Culture - Preliminary Blood No Growth after 24 hours Assessment and Plan Plan: Assessment: 1 DKA with severe metabolic acidosis and anion gap type. Improving. Anion gap metabolic acidosis still present in the serum bicarb is up to 8. She remains on insulin drip. 2 leukocytosis, likely reactive, improving 3 severe hypothermia , improving 4 altered mentation secondary to above 5 diabetes mellitus 1 maintained on Lantus insulin outpatient basis 6 Previous history of DKA 7 bronchial asthma mild intermittent in nature 8 depression 9 Anxiety 10 previous history of use of marijuana and history of stimulant use. Plan: Continue insulin infusion, continue D5 half normal saline at 150, continue with Zofran, Reglan, once nausea and vomiting improved and patient is able to tolerate oral intake and consider switching the patient from insulin infusion to insulin injections. His labs have been reviewed, anion gap has closed, and his metabolic acidosis is improving. Patient has been transferred out of ICU to regular medical surgical floor where he remained stable. His chest x-ray showed left basilar atelectasis, and areas of increased density along the right lower lobe. Patient continues on Rocephin, his vital signs have been stable, hypo thermia has improved, and he is not complaining of any pulmonary symptoms, doubt underlying pneumonia. Pulmonary/critical care service will sign of in follow-up on an as-needed basis I performed a history & physical examination of the patient and discussed their management with my nurse practitioner, Alysha Kamara. I reviewed the nurse practitioner's note and agree with the documented findings and plan of care. Lung sounds are positive for diminished breath sounds. The findings and the imp ression was discussed with the patient. I attest to the documentation by the nurse practitioner. Time with Patient: Less than 30
[2020-04-14 16:29] LABS: Glucose,Whole Blood 232 mg/dL (75-99)
[2020-04-14] MEDS: INSULIN DETEMIR (LEVEMIR) 100 UNIT/ML SYR SQ SCH (16:52)
[2020-04-14] MEDS: INSULIN ASPART (NovoLOG) 100 UNIT/ML VIAL SQ SCH (17:09)
[2020-04-14 19:01] LABS: African American GFR (CKD) >90 (>60 ml/min/1.73 sqM); Anion Gap 9 mmol/L; Blood Urea Nitrogen 43 mg/dL (9-20); Calcium 8.7 mg/dL (8.4-10.2); Carbon Dioxide 19 mmol/L (22-30); Chloride 114 mmol/L (98-107); Glucose 248 mg/dL (74-99); Non-African American GFR(CKD) 88 (>60 ml/min/1.73 sqM); Potassium 3.2 mmol/L (3.5-5.1); Sodium 142 mmol/L (137-145)
[2020-04-14 20:46] LABS: Glucose,Whole Blood 212 mg/dL (75-99)
--- NOTE | 2020-04-14 22:11 | P.PN ---
Subjective Progress Note Date: 04/14/20 Principal diagnosis: Acute diabetic ketoacidosis Patient is a 34-year-old male with a known history of asthma, diabetes type 1 and history of DKAs, anxiety/depression and previous history of smoking and occasional marijuana use presents to ER with altered mental status. Patient was hypothermic with a rectal temperature 88F on admission. Patient was confused and lethargic and not arousable. Blood pressure was 88/51 and heart rate 67, pulse ox was 98% on room air. Laboratory data showed WBC 48.5, hemoglobin 17.4 and platelets 353, MCV 100.5 Neutrophils 38.8 and ABG showed pH of less than 6.8 and pCO2 is a pleasant 15 on admission. Laboratory data showed sodium 138, potassium 5.9, chloride 103, bicarb less than 5 and BUE and 54 and creatinine 1.98 and blood sugar was 669 on admission, alkaline phosphatase 144 Urinalysis showed 1+ protein and 4+ glucose and 3+ ketones UDS negative A don't positive Chest x-ray showed mild right lower lobe infiltrate. Correlate for pneumonia or aspiration. In the ER patient was given IV fluid boluses and antibiotics in the form of ceftriaxone. Patient was started on insulin drip and lites every 4 hours. 04/14/2020 Patient is more awake and oriented today. Denied any complaints of chest pain or shortness of. Still having nausea and episodes of vomiting. DKA is resolved and patient was transferred out of MICU. Currently laboratory data showed sodium 145, potassium 3.7, bicarb 20 and BUN 51 creatinine 1.38 Albumin 3.1, amylase 194 and lipase 311 Patient will be started on diet and taper off insulin drip. Patient will be given subcu insulin and insulin sliding scale. Current medications reviewed. Objective - Vital Signs Vital signs: Vital Signs Temp 97.6 F 04/14/20 11:57 Pulse 102 H 04/14/20 11:57 Resp 18 04/14/20 11:57 BP 134/94 04/14/20 11:57 Pulse Ox 99 04/14/20 11:57 Intake & Output 04/13/20 04/14/20 04/14/20 18:59 06:59 18:59 Intake Total 5.185 150.399 632.845 Output Total 350 300 Balance 5.185 -199.601 332.845 Weight 68.039 kg Intake: IV 100 500 D5-0.45% NaCl with KCl 100 500 20Meq/l 1,000 ml @ 100 mls/hr IV .Q10H YAEL Rx#: [id number] Intake, IV Titration 5.185 50.399 32.845 Amount Insulin Regular 100 unit 5.185 50.399 32.845 In Sodium Chloride 0.9% 100 ml @ 5.17 UNITS/KG/HR 378.573 mls/hr IV .Q16M YAEL Rx#:[id number] Oral 100 Output: Urine 350 300 Other: # Voids 1 - Exam PHYSICAL EXAMINATION: Patient is lying in the bed comfortably, no acute distress, awake alert and oriented But lethargic.. HEENT: Normocephalic. Neck is supple. Pupils reactive. Nostrils clear. Oral cavity is moist. Ears reveal no drainage. Neck reveals no JVD, carotid bruits, or thyromegaly. CHEST EXAMINATION: Trachea is central. Symmetrical expansion. Lung brady clear to auscultation and percussion. CARDIAC: Normal S1, S2 with no gallops. No murmurs ABDOMEN: Soft. Mild epigastric tenderness. Bowel sounds normal. No organomegaly. No abdominal bruits. Extremities: reveal no edema. No clubbing or cyanosis Neurologically awake, alert, oriented x3 with well-coordinated movements. No focal deficits noted Skin: No rash or skin lesions. Psychiatric: Coperative. Nonsuicidal Musculoskeletal: No joint swelling or deformity. Normal range of motion. - Labs CBC & Chem 7: 04/13/20 03:48 04/14/20 18:26 Labs: Abnormal Lab Results - Last 24 Hours (Table) 04/13/20 04/13/20 04/13/20 Range/Units 12:47 13:33 14:46 Sodium (137-145) mmol/L Chloride 118 H (98-107) mmol/L Carbon Dioxide 8 L* (22-30) mmol/L BUN 63 H (9-20) mg/dL Creatinine 1.73 H (0.66-1.25) mg/dL Glucose 275 H (74-99) mg/dL POC Glucose (mg/dL) 230 H 227 H (75-99) mg/dL Total Protein 5.7 L (6.3-8.2) g/dL Albumin (3.5-5.0) g/dL Amylase (30-110) U/L Lipase (23-300) U/L 04/13/20 04/13/20 04/13/20 Range/Units 16:13 17:07 17:43 Sodium (137-145) mmol/L Chloride 120 H (98-107) mmol/L Carbon Dioxide 12 L (22-30) mmol/L BUN 62 H (9-20) mg/dL Creatinine 1.62 H (0.66-1.25) mg/dL Glucose 221 H (74-99) mg/dL POC Glucose (mg/dL) 200 H 196 H (75-99) mg/dL Total Protein 5.8 L (6.3-8.2) g/dL Albumin 3.4 L (3.5-5.0) g/dL Amylase (30-110) U/L Lipase (23-300) U/L 04/13/20 04/13/20 04/13/20 Range/Units 19:20 20:27 21:08 Sodium (137-145) mmol/L Chloride (98-107) mmol/L Carbon Dioxide (22-30) mmol/L BUN (9-20) mg/dL Creatinine (0.66-1.25) mg/dL Glucose (74-99) mg/dL POC Glucose (mg/dL) 189 H 202 H 195 H (75-99) mg/dL Total Protein (6.3-8.2) g/dL Albumin (3.5-5.0) g/dL Amylase (30-110) U/L Lipase (23-300) U/L 04/13/20 04/13/20 04/13/20 Range/Units 21:40 22:07 23:11 Sodium 146 H (137-145) mmol/L Chloride 119 H (98-107) mmol/L Carbon Dioxide 14 L (22-30) mmol/L BUN 59 H (9-20) mg/dL Creatinine 1.60 H (0.66-1.25) mg/dL Glucose 218 H (74-99) mg/dL POC Glucose (mg/dL) 198 H 205 H (75-99) mg/dL Total Protein 5.9 L (6.3-8.2) g/dL Albumin (3.5-5.0) g/dL Amylase (30-110) U/L Lipase (23-300) U/L 04/14/20 04/14/20 04/14/20 Range/Units 00:00 01:03 02:32 Sodium (137-145) mmol/L Chloride (98-107) mmol/L Carbon Dioxide (22-30) mmol/L BUN (9-20) mg/dL Creatinine (0.66-1.25) mg/dL Glucose (74-99) mg/dL POC Glucose (mg/dL) 206 H 195 H 225 H (75-99) mg/dL Total Protein (6.3-8.2) g/dL Albumin (3.5-5.0) g/dL Amylase (30-110) U/L Lipase (23-300) U/L 04/14/20 04/14/20 04/14/20 Range/Units 03:16 04:10 04:43 Sodium (137-145) mmol/L Chloride 118 H (98-107) mmol/L Carbon Dioxide 17 L (22-30) mmol/L BUN 53 H (9-20) mg/dL Creatinine 1.48 H (0.66-1.25) mg/dL Glucose 262 H (74-99) mg/dL POC Glucose (mg/dL) 249 H 238 H (75-99) mg/dL Total Protein 5.3 L (6.3-8.2) g/dL Albumin 3.1 L (3.5-5.0) g/dL Amylase (30-110) U/L Lipase (23-300) U/L 04/14/20 04/14/20 04/14/20 Range/Units 05:07 06:04 06:58 Sodium (137-145) mmol/L Chloride (98-107) mmol/L Carbon Dioxide (22-30) mmol/L BUN (9-20) mg/dL Creatinine (0.66-1.25) mg/dL Glucose (74-99) mg/dL POC Glucose (mg/dL) 250 H 263 H 252 H (75-99) mg/dL Total Protein (6.3-8.2) g/dL Albumin (3.5-5.0) g/dL Amylase (30-110) U/L Lipase (23-300) U/L 04/14/20 04/14/20 04/14/20 Range/Units 07:47 08:39 08:39 Sodium (137-145) mmol/L Chloride 118 H (98-107) mmol/L Carbon Dioxide 20 L (22-30) mmol/L BUN 51 H (9-20) mg/dL Creatinine 1.38 H (0.66-1.25) mg/dL Glucose 274 H (74-99) mg/dL POC Glucose (mg/dL) 238 H (75-99) mg/dL Total Protein 5.3 L (6.3-8.2) g/dL Albumin 3.1 L (3.5-5.0) g/dL Amylase 194 H (30-110) U/L Lipase 311 H (23-300) U/L 04/14/20 04/14/20 Range/Units 10:31 11:45 Sodium (137-145) mmol/L Chloride (98-107) mmol/L Carbon Dioxide (22-30) mmol/L BUN (9-20) mg/dL Creatinine (0.66-1.25) mg/dL Glucose (74-99) mg/dL POC Glucose (mg/dL) 223 H 210 H (75-99) mg/dL Total Protein (6.3-8.2) g/dL Albumin (3.5-5.0) g/dL Amylase (30-110) U/L Lipase (23-300) U/L Microbiology - Last 24 Hours (Table) 04/12/20 17:33 Blood Culture - Preliminary Blood No Growth after 24 hours Assessment and Plan Assessment: Acute diabetic ketoacidosis. resolved. Altered mental status possible metabolic encephalopathy secondary to acidosis, improved. Leukemoid reaction. improving. Possible aspiration pneumonia Elevated lipase level with intractable nausea and vomiting. Severe hypokalemia on admission with rectal temperature 88F. improved now. Previous history of DKA's Diabetes type 1 Asthma not in exacerbation Anxiety/depression Previous history of smoking and occasional marijuana use DVT prophylaxis and GI prophylaxis Plan: Patient will be continued on IV hydration and Insulin drip has been discontinued and patient was started on subcu insulin. Monitor CBG and electrolytes. replace K+ blood cx negative. Continue to follow closely. Psychiatry was consulted due to depression and noncompliance with medications. Further recommendations based on the clinical course. Time with Patient: Greater than 30
[2020-04-15] MEDS: HEPARIN SODIUM,PORCINE 5,000 UNIT/ML 1 ML VIAL SQ SCH ×4 (00:55→23:17)
[2020-04-15] MEDS: METOCLOPRAMIDE 5 MG/ML 2 ML VIAL IVP SCH ×5 (00:56→23:18)
[2020-04-15] MEDS: SODIUM CHLORIDE 0.9% 1,000 ML IV SCH ×2 (01:01→23:17)
[2020-04-15 06:47] LABS: Glucose,Whole Blood 146 mg/dL (75-99)
[2020-04-15 07:13] LABS: Basophils % (A) 0 %; Eosinophils # (A) 0.1 k/uL (0-0.7); Eosinophils % (A) 1 %; HCT 35.9 % (39.0-53.0); HGB 12.7 gm/dL (13.0-17.5); Lymphocytes % (A) 36 %; MCH 31.5 pg (25.0-35.0); MCHC 35.4 g/dL (31.0-37.0); MCV 88.9 fL (80.0-100.0); Mean Platelet Volume 6.9; Monocytes # (A) 0.3 k/uL (0-1.0); Monocytes % (A) 5 %; Neutrophils # (A) 3.1 k/uL (1.3-7.7); Neutrophils % (A) 56 %; Platelet Count 131 k/uL (150-450); RBC 4.04 m/uL (4.30-5.90); WBC 5.5 k/uL (3.8-10.6)
[2020-04-15] MEDS: INSULIN ASPART (NovoLOG) 100 UNIT/ML VIAL SQ SCH ×3 (08:12→20:46)
[2020-04-15] MEDS: INSULIN DETEMIR (LEVEMIR) 100 UNIT/ML SYR SQ SCH (08:13)
[2020-04-15] MEDS: PANTOPRAZOLE 40 MG/10 ML VIAL IV SCH (08:13)
[2020-04-15 11:21] LABS: Glucose,Whole Blood 248 mg/dL (75-99)
[2020-04-15 11:51] LABS: African American GFR (CKD) 109.9 (60.0-200.0); Anion Gap 8.9 mmol/L (4.00-12.00); Calcium 8.5 mg/dL (8.7-10.3); Carbon Dioxide 27.1 mmol/L (21.6-31.8); Non-African American GFR(CKD) 94.8 (60.0-200.0); Potassium 3.2 mmol/L (3.5-5.5)
--- NOTE | 2020-04-15 13:59 | P.CN ---
Psychiatric Consult - . Consult date: 04/15/20 Consult:: 04/15/20 13:08 IDENTIFYING DATA: Patient is a 24-year-old male with a history of depression and type 1 diabetes currently single with no kids living with his friend. HPI: Patient presented to the ED after being dropped off by someone at the curb. Patient was noted to be confused and have altered mental status on presentation. Patient was a poor historian. He had blood sugars over 500 in the ER. Patient's chest x-ray was positive for right infiltrate suggestive of pneumonia and patient was transferred initially to the ICU. Patient was being treated for diabetes ketoacidosis with severe metabolic acidosis. Patient was placed on insulin drip and found to have leukocytosis. Patient's UDS was negative. Psychiatry is consulted for history of depression. Patient's nurse states that he has been doing fine with her and not offering any complaints and has not been caring for himself. Patient's nurse claims that he has not been suicidal. Patient was seen at the bedside and covered with his blankets. Patient appeared to be mildly drowsy today however was attempting to cooperate. Patient initially stated that he does not know how he came to the hospital or why he was here. He was fairly guarded and evasive. He minimized his condition and his symptoms. He names that he has not been taking care of his diabetes including his eating and his lifestyle. He states he also has not been taking his insulin for the past 2 days. He states that he's been eating junk food at home. He claims that also he is using marijuana approximately 4 times a week. He states that he stopped taking his medications for approximately 2 months now and has not been going to his appointments. He admitted to mild depression at this time. He appeared to have poor hygiene and grooming. He states that he slept okay last night. He denies any other recreational drug use and denies cigarette use. Patient denies any suicidal thoughts intent or plan and denies any homicidal ideations. He denied any auditory or visual hallucinations. PAST PSYCHIATRIC HISTORY: Patient states that he has history of depression and anxiety and has had multiple hospitalizations. Patients has had several psychiatric hospitalizations in the past. Patient is established with [facility] has not been going to his appointments. He admitted to several suicide attempts in the past. Patient has been on trazodone in several other antidepressants in the past. PMH: Diabetes mellitus type 1 uncontrolled, asthma, skin disorder ALLERGIES: as per EMR CHEMICAL DEPENDENCY HISTORY: as per HPI FAMILY PSYCHIATRIC/SUBSTANCE USE HISTORY: One of his cousins committed suicide SOCIAL HISTORY: Patient is currently single has no kids is living with his friend at this time. He claims that he has attempted to work several different jobs however feel he cannot work at this time. MENTAL STATUS EXAM: General Appearance: Patient appears to be stated age is alert, guarded/evasive, uncooperative. Patient appears to have poor hygiene and grooming. Behavior: Patient is laying in bed without any agitated behavior. Speech: Patient's speech is fluent and nonpressured. Soft tone. Mood/Affect: Patient reports their mood is depressed, affect is congruent and constricted. Suicidality/Homicidality: Patient denies having any homicidal ideation intent or plan. He denies any suicidal thoughts however no intent or plan. Perceptions: Patient denies any visual hallucinations and denies any auditory hallucinations Though content/process: Demise of his symptoms, guarded and evasive. Denies any delusions or paranoia. Memory and concentration: AOX3, grossly intact for the purposes of this session. Can spell "WORLD" backwards Judgment and insight: Chronically poor IMPRESSIONS: Depressive disorder unspecified Anxiety disorder unspecified Cannabis abuse History of stimulant abuse. PLAN: -At this time will continue to follow along as patient improves medically to see if patient will require inpatient psychiatric admission or not. -Would recommend the following medication changes/additions: Patient is agreeable to start Lexapro 10 mg daily for mood/anxiety. We will restart trazodone at 100 mg daily at bedtime for insomnia/mood. -Ultras[employer] Applications Specialist spoke with patient about substance abuse and the harmful effects on medical and mental health, patient verbally understood and agreed. -Will continue to follow along -Please contact with any questions.
[2020-04-15 16:42] LABS: Glucose,Whole Blood 53 mg/dL (75-99)
[2020-04-15 16:59] LABS: Glucose,Whole Blood 64 mg/dL (75-99)
[2020-04-15 17:18] LABS: Glucose,Whole Blood 96 mg/dL (75-99)
--- NOTE | 2020-04-15 17:24 | PN ---
PROGRESS NOTE CHIEF COMPLAINT: DKA. HISTORY OF PRESENT ILLNESS: This gentleman is awake and alert. Blood sugars are improved. He is very depressed. He is being followed by Psychiatry and he may be moved to the psych unit once he is stable. PHYSICAL EXAMINATION: Chest is clear. Cardiac exam is sinus. Abdomen is soft, nontender. Normal bowel sounds. IMPRESSION: 1. Diabetic ketoacidosis. 2. Uncontrolled type 1 insulin-dependent diabetes mellitus. 3. Major depression. PLAN: Continue to stabilize and psychiatry will make a decision whether he goes home or to the psych unit. MMODL / IJN: [id number] /
[2020-04-15] MEDS: ESCITALOPRAM 10 MG TAB PO SCH (17:27)
[2020-04-15 20:40] LABS: Glucose,Whole Blood 231 mg/dL (75-99)
[2020-04-15] MEDS: POTASSIUM CHLORIDE ER 20 MEQ TAB.ER PO SCH (20:46)
[2020-04-15] MEDS: traZODone HCL 100 MG TAB PO SCH (20:46)
[2020-04-15 23:27] LABS: Anion Gap 10.9 mmol/L (4.00-12.00); BUN/Creat Ratio 24.44 Ratio (12.00-20.00); Calcium 8.6 mg/dL (8.7-10.3); Carbon Dioxide 27.1 mmol/L (21.6-31.8); Non-African American GFR(CKD) 120.8 (60.0-200.0); Potassium 2.8 mmol/L (3.5-5.5)
[2020-04-16] MEDS: SODIUM CHLORIDE 0.9% 1,000 ML IV SCH ×2 (07:01→17:53)
[2020-04-16 07:20] LABS: Glucose,Whole Blood 114 mg/dL (75-99)
[2020-04-16] MEDS: HEPARIN SODIUM,PORCINE 5,000 UNIT/ML 1 ML VIAL SQ SCH ×3 (07:50→22:59)
[2020-04-16] MEDS: METOCLOPRAMIDE 5 MG/ML 2 ML VIAL IVP SCH ×5 (07:51→23:23)
[2020-04-16] MEDS: ESCITALOPRAM 10 MG TAB PO SCH (08:00)
[2020-04-16] MEDS: PANTOPRAZOLE 40 MG/10 ML VIAL IV SCH (08:00)
[2020-04-16] MEDS: INSULIN ASPART (NovoLOG) 100 UNIT/ML VIAL SQ SCH ×3 (08:01→17:41)
[2020-04-16] MEDS: POTASSIUM CHLORIDE ER 20 MEQ TAB.ER PO SCH ×2 (08:01→22:09)
[2020-04-16] MEDS: INSULIN DETEMIR (LEVEMIR) 100 UNIT/ML SYR SQ SCH (08:01)
[2020-04-16 09:46] LABS: African American GFR (CKD) 155.3 (60.0-200.0); Anion Gap 5.7 mmol/L (4.00-12.00); BUN/Creat Ratio 22.86 Ratio (12.00-20.00); Calcium 8.4 mg/dL (8.7-10.3); Carbon Dioxide 28.3 mmol/L (21.6-31.8); Potassium 3.3 mmol/L (3.5-5.5)
[2020-04-16] MEDS ORDERED: Potassium Replacement Protocol 1 EACH MISC MISCELLANE PRN (11:41)
[2020-04-16 11:59] LABS: Glucose,Whole Blood 99 mg/dL (75-99)
[2020-04-16] MEDS: POTASSIUM CHLORIDE 10 MEQ in WATER FOR INJECTION 1 100ML.BAG IVPB SCH ×3 (12:48→13:20)
[2020-04-16] MEDS ORDERED: POTASSIUM BICARBONATE/CIT AC 20 MEQ TABLET.EFF PO ONE ×2 (13:30→15:00)
[2020-04-16 16:35] LABS: Glucose,Whole Blood 81 mg/dL (75-99)
[2020-04-16 18:29] LABS: African American GFR (CKD) >90 (>60 ml/min/1.73 sqM); Anion Gap 1 mmol/L; Blood Urea Nitrogen 11 mg/dL (9-20); Calcium 8.5 mg/dL (8.4-10.2); Carbon Dioxide 35 mmol/L (22-30); Chloride 101 mmol/L (98-107); Glucose 146 mg/dL (74-99); Non-African American GFR(CKD) >90 (>60 ml/min/1.73 sqM); Potassium 3.8 mmol/L (3.5-5.1); Sodium 137 mmol/L (137-145)
[2020-04-16 21:41] LABS: Glucose,Whole Blood 107 mg/dL (75-99)
[2020-04-16] MEDS: ONDANSETRON 4 MG/2 ML VIAL IVP PRN (22:12)
[2020-04-16] MEDS: traZODone HCL 100 MG TAB PO SCH (22:59)
[2020-04-17] MEDS: METOCLOPRAMIDE 5 MG/ML 2 ML VIAL IVP SCH ×3 (05:23→16:56)
[2020-04-17 06:50] LABS: Glucose,Whole Blood 167 mg/dL (75-99)
[2020-04-17] MEDS: HEPARIN SODIUM,PORCINE 5,000 UNIT/ML 1 ML VIAL SQ SCH ×3 (08:24→23:33)
[2020-04-17] MEDS: INSULIN ASPART (NovoLOG) 100 UNIT/ML VIAL SQ SCH ×3 (08:39→16:56)
[2020-04-17] MEDS: POTASSIUM CHLORIDE ER 20 MEQ TAB.ER PO SCH ×2 (08:39→20:24)
[2020-04-17] MEDS: SODIUM CHLORIDE 0.9% 1,000 ML IV SCH ×2 (08:41→22:59)
[2020-04-17] MEDS: ESCITALOPRAM 10 MG TAB PO SCH (08:41)
[2020-04-17] MEDS: ONDANSETRON 4 MG/2 ML VIAL IVP PRN (08:47)
[2020-04-17] MEDS: PANTOPRAZOLE 40 MG/10 ML VIAL IV SCH (08:47)
[2020-04-17] MEDS: INSULIN DETEMIR (LEVEMIR) 100 UNIT/ML SYR SQ SCH (08:48)
[2020-04-17 11:12] LABS: African American GFR (CKD) 155.3 (60.0-200.0); Anion Gap 7.7 mmol/L (4.00-12.00); BUN/Creat Ratio 15.71 Ratio (12.00-20.00); Calcium 8.4 mg/dL (8.7-10.3); Carbon Dioxide 33.3 mmol/L (21.6-31.8); Potassium 3.5 mmol/L (3.5-5.5)
[2020-04-17 11:19] LABS: Glucose,Whole Blood 167 mg/dL (75-99)
[2020-04-17 11:25] LABS: Basophils % (A) 1 %; Eosinophils # (A) 0.1 k/uL (0-0.7); Eosinophils % (A) 2 %; HCT 36.7 % (39.0-53.0); HGB 12.9 gm/dL (13.0-17.5); Lymphocytes # (A) 1.3 k/uL (1.0-4.8); Lymphocytes % (A) 37 %; MCH 31.5 pg (25.0-35.0); MCHC 35.3 g/dL (31.0-37.0); MCV 89.2 fL (80.0-100.0); Mean Platelet Volume 7.9; Monocytes # (A) 0.3 k/uL (0-1.0); Monocytes % (A) 10 %; Neutrophils # (A) 1.6 k/uL (1.3-7.7); Neutrophils % (A) 48 %; Platelet Count 143 k/uL (150-450); RBC 4.11 m/uL (4.30-5.90); RDW 12.4 % (11.5-15.5); WBC 3.4 k/uL (3.8-10.6)
--- NOTE | 2020-04-17 11:44 | P.PN ---
Progress Note - Text Progress Note Date: 04/17/20 Interval History: Patient was seen today for psychiatric follow-up regarding his depression. Rigo lucas states that he is feeling less depressed today and less anxious. He states that he was feeling rather nauseous yesterday and was not able to keep any food down. He claims that he feels the Lexapro was causing his nausea and stopped taking it. He claims that he also did not take trazodone last night however did not give a good reason why. He asked to have his trazodone increased for tonight as he states that he only got approximately 3 hours of sleep. He claims that he would be willing to try Wellbutrin instead for his depression and risks and benefits were reviewed with patient. He states that he will most likely be going back to his friend's house where he came from upon discharge. At this time patient denies any suicidal or homical ideations, intent or plan. Patient denies any auditory, visual hallucinations and denies any paranoia or delusions. Patient denies any side effects from the medications and has been compliant with meds. Mental Status Exam: General Appearance: Patient appears to be stated age is alert, more cooperative today, continues to be superficial at times. Patient appears to have improving hygiene and grooming. Behavior: Patient is laying in bed without any agitated behavior. Superficial at times Speech: Patient's speech is fluent and nonpressured. Soft tone. Mood/Affect: Patient reports their mood is improving, affect is congruent and constricted. Suicidality/Homicidality: Patient denies having any homicidal ideation intent or plan. He denies any suicidal thoughts however no intent or plan. Perceptions: Patient denies any visual hallucinations and denies any auditory hallucinations Though content/process: Goal oriented. [place]. superficial. Denies any delusions or paranoia. Memory and concentration: AOX3, grossly intact for the purposes of this session Judgment and insight: Chronically poor, improving mildly Assessment Depressive disorder unspecified Anxiety disorder unspecified Cannabis abuse History of stimulant abuse. Plan: -At this time patient does NOT meet criteria for inpatient psychiatric hospitalization. -Would recommend the following medication changes/additions: Discontinue Lexapro due to possible side effects of nausea and vomiting. Patient is agreeable to start Wellbutrin today 150 mg daily. We'll increase trazodone 150 mg daily at bedtime for insomnia/mood. Spoke with patient about the risks of medications side effects and benefits and patient verbally understood and agreed. -Will continue to follow along and likely sign off tomorrow morning. -Patient claims that he will be going back to his roommate's house to live with him. Patient will need to follow-up with [facility] for psychiatric outpatient care. -Please contact with any questions.
[2020-04-17] MEDS: buPROPion XL 150 MG TAB.ER.24H PO SCH (12:35)
[2020-04-17 14:22] LABS: Glucose,Whole Blood 160 mg/dL (75-99)
[2020-04-17 16:35] LABS: Glucose,Whole Blood 194 mg/dL (75-99)
[2020-04-17 16:37] LABS: Albumin 3.2 g/dL (3.80-4.90); Albumin/Globulin Ratio 2.13 (1.60-3.17); Bilirubin, Conjugated 0.2 mg/dL (0.20-0.40); Bilirubin,Unconjugated 0.4 mg/dL; Globulin 1.5 g/dL (1.6-3.3); Total Bilirubin 0.6 mg/dL (0.3-1.2); Total Protein 4.7 g/dL (6.2-8.2)
[2020-04-17 20:07] LABS: Glucose,Whole Blood 111 mg/dL (75-99)
[2020-04-17] MEDS ORDERED: traZODone HCL 50 MG TAB PO SCH (21:00)
[2020-04-18] MEDS: METOCLOPRAMIDE 5 MG/ML 2 ML VIAL IVP SCH ×4 (00:34→13:18)
[2020-04-18] MEDS: HEPARIN SODIUM,PORCINE 5,000 UNIT/ML 1 ML VIAL SQ SCH ×2 (07:30→11:55)
[2020-04-18 07:40] LABS: Glucose,Whole Blood 137 mg/dL (75-99)
[2020-04-18] MEDS: buPROPion XL 150 MG TAB.ER.24H PO SCH (08:00)
[2020-04-18] MEDS: INSULIN DETEMIR (LEVEMIR) 100 UNIT/ML SYR SQ SCH (08:00)
[2020-04-18] MEDS: PANTOPRAZOLE 40 MG TABLET PO SCH (08:00)
[2020-04-18] MEDS: INSULIN ASPART (NovoLOG) 100 UNIT/ML VIAL SQ SCH ×4 (08:01→17:48)
[2020-04-18] MEDS: POTASSIUM CHLORIDE ER 20 MEQ TAB.ER PO SCH ×2 (08:01→20:59)
[2020-04-18] MEDS: ONDANSETRON 4 MG/2 ML VIAL IVP PRN (09:12)
[2020-04-18 11:45] LABS: Glucose,Whole Blood 171 mg/dL (75-99)
[2020-04-18] MEDS ORDERED: TRIMETHOBENZAMIDE 300 MG CAP PO PRN (13:06)
[2020-04-18] MEDS: SODIUM CHLORIDE 0.9% 1,000 ML IV SCH (13:18)
--- NOTE | 2020-04-18 13:19 | P.PN ---
Progress Note - Text Progress Note Date: 04/18/20 Interval History: Patient was seen today for psychiatric follow-up regarding his depression. Rigo lucas states that he is feeling fair in terms of his mood however claims that his nausea and vomiting have restarted since this morning. He states that after he finished his breakfast he again vomiting once again. He claims that he was able to sleep approximately 3-4 hours last night and was agreeable to have his trazodone increased once again. He states that he will most likely be going back to his friend's house where he came from upon discharge. He denies any anxiety today. He reports poor energy level due to feeling ill. At this time patient denies any suicidal or homical ideations, intent or plan. Patient denies any auditory, visual hallucinations and denies any paranoia or delusions. Mental Status Exam: General Appearance: Patient appears to be stated age is alert, more cooperative today, directable. Patient appears to have improving hygiene and grooming. Appears to be in distress secondary to nausea. Behavior: Patient is laying in bed without any agitated behavior. Superficial at times Speech: Patient's speech is fluent and nonpressured. Soft tone. Mood/Affect: Patient reports their mood is improving, affect is congruent and constricted. Suicidality/Homicidality: Patient denies having any homicidal ideation intent or plan. He denies any suicidal thoughts however no intent or plan. Perceptions: Patient denies any visual hallucinations and denies any auditory hallucinations Though content/process: Goal oriented. [place]. superficial. Denies any delusions or paranoia. Memory and concentration: AOX3, grossly intact for the purposes of this session Judgment and insight: Chronically poor, improving mildly Assessment Depressive disorder unspecified Anxiety disorder unspecified Cannabis abuse History of stimulant abuse. Plan: -At this time patient does NOT meet criteria for inpatient psychiatric hospitalization. -Would recommend the following medication changes/additions: Will discontinue Wellbutrin at this time as it may have caused patient to be feeling more nauseous this morning. It appears that patient is not able to tolerate any SSRIs at this point. We'll increase trazodone 200 mg daily at bedtime for insomnia/mood. -Will await and appreciate GI recommendations for patient's nausea/vomiting. -Will continue to follow along if needed -Patient claims that he will be going back to his roommate's house to live with him. Patient will need to follow-up with [facility] for psychiatric outpatient care. -Please contact with any questions.
[2020-04-18 17:28] LABS: Glucose,Whole Blood 55 mg/dL (75-99)
[2020-04-18 17:28] LABS: Glucose,Whole Blood 59 mg/dL (75-99)
[2020-04-18 17:44] LABS: Glucose,Whole Blood 127 mg/dL (75-99)
[2020-04-18] MEDS: ONDANSETRON 4 MG/2 ML VIAL IVP SCH (17:48)
[2020-04-18] MEDS: traZODone HCL 100 MG TAB PO SCH (21:02)
[2020-04-18 21:11] LABS: Glucose,Whole Blood 171 mg/dL (75-99)
--- NOTE | 2020-04-18 23:13 | PN ---
PROGRESS NOTE DATE OF SERVICE: 04/16/2020 CHIEF COMPLAINT: DKA. HISTORY OF PRESENT ILLNESS: This gentleman is continuing to improve. Blood sugars are still elevated, but his regular basal bolus program has been reinstituted. PHYSICAL EXAMINATION: He is afebrile. Cardiac exam is normal. Chest is clear. Abdomen is flat and soft. IMPRESSION: 1. Diabetic ketoacidosis. 2. Uncontrolled type 1 diabetes. 3. Low potassium. PLAN: 1. Correct hypokalemia. 2. Continue to adjust insulin before discharge. MMODL / IJN: [id number] /
--- NOTE | 2020-04-18 23:16 | PN ---
PROGRESS NOTE DATE OF SERVICE: 04/17/2020 CHIEF COMPLAINT: DKA. HISTORY OF PRESENT ILLNESS: This gentleman is rehydrated and numbers are back to normal. He is, however, starting to have episodes of nausea and vomiting without abdominal pain, hematemesis, diarrhea, melena, hematochezia, etc. PHYSICAL EXAMINATION: Abdomen is flat, soft, nontender. There are no masses. Bowel sounds present. Chest is clear. IMPRESSION: 1. Nausea and vomiting, etiology unknown. 2. Possible gastroparesis. 3. Diabetic ketoacidosis. 4. Uncontrolled juvenile onset type 1 diabetes. PLAN: Continue with Reglan and antiemetics along with IV fluids. MMODL / IJN: [id number] /
--- NOTE | 2020-04-18 23:43 | PN ---
PROGRESS NOTE DATE OF SERVICE: 04/18/2020 CHIEF COMPLAINT: DKA and persistent nausea and vomiting. HISTORY OF PRESENT ILLNESS: This gentleman is still having episodes of nausea and vomiting. This has been witnessed by the staff. He has had no fever, chills, diarrhea, etc. PHYSICAL EXAMINATION: Chest is clear. Cardiac exam is unchanged with sinus rhythm. The abdomen is flat and soft. Bowel sounds present and there is no tenderness. IMPRESSION: 1. Unexplained nausea and vomiting. 2. Diabetic ketoacidosis. 3. Type 1 uncontrolled insulin-dependent diabetes mellitus. PLAN: Gastroenterology consult. MMODL / IJN: [id number] /
[2020-04-19] MEDS: HEPARIN SODIUM,PORCINE 5,000 UNIT/ML 1 ML VIAL SQ SCH ×3 (00:20→13:18)
[2020-04-19] MEDS: METOCLOPRAMIDE 5 MG/ML 2 ML VIAL IVP SCH ×4 (00:21→19:35)
[2020-04-19] MEDS: ONDANSETRON 4 MG/2 ML VIAL IVP SCH ×4 (00:23→19:35)
[2020-04-19] MEDS: SODIUM CHLORIDE 0.9% 1,000 ML IV SCH ×2 (00:27→18:46)
[2020-04-19] MEDS: POTASSIUM CHLORIDE ER 20 MEQ TAB.ER PO SCH ×2 (06:48→20:46)
[2020-04-19 07:15] LABS: Glucose,Whole Blood 88 mg/dL (75-99)
[2020-04-19] MEDS: INSULIN ASPART (NovoLOG) 100 UNIT/ML VIAL SQ SCH ×3 (08:16→13:55)
[2020-04-19] MEDS: INSULIN DETEMIR (LEVEMIR) 100 UNIT/ML SYR SQ SCH (08:16)
[2020-04-19] MEDS: PANTOPRAZOLE 40 MG TABLET PO SCH (08:17)
[2020-04-19 11:26] LABS: Glucose,Whole Blood 186 mg/dL (75-99)
--- NOTE | 2020-04-19 11:40 | P.CONS ---
History of Present Illness - Reason for Consult Consult date: 04/18/20 Nausea and vomiting Requesting physician: Brown Valenzuela - Chief Complaint Altered mental status - History of Present Illness 24-year-old male with multiple medical comorbidities including asthma, poorly controlled diabetes mellitus type 1 with a history of hospitalizations for DKA, anxiety and depression as well as marijuana use who presented to the hospital due to altered mental status. Patient has been hospitalized and receiving treatment for DKA, acute kidney injury and is currently improving on the medical floor. The patient had stopped his diabetic medications in the outpatient setting. Gastroenterology was consult the due to complaints of persistent nausea and vomiting. The patient has had a history of diabetes mellitus since age of 18 which is poorly controlled. He also uses marijuana approximately 4 times or greater per week. Currently the patient is reporting persistent nausea and vomiting occurring every 2-4 hours. He is had decreased oral intake. He denies any abdominal pain. He does have loose bowel movements at baseline and suspected irritable bowel syndrome. Laboratory evaluation significant for amylase 194, lipase 311, total bilirubin 0.6, alkaline phosphatase 70, AST 16, ALT 15, hemoglobin 12.9. Review of Systems REVIEW OF SYSTEMS: CONSTITUTIONAL: Denies any fevers, chills, weight change or fatigue, he was hypothermic on presentation. CARDIOVASCULAR: Denies any chest pain, palpitations high or low blood pressures RESPIRATORY: Denies any shortness of breath, hemoptysis or cough. GENITOURINARY: No dysuria or hematuria. MUSCULOSKELETAL: No weakness reported. SKIN: Denies any new rashes or lesions, jaundice or pallor. PSYCHIATRIC: He does have a history of anxiety and depression and marijuana abuse. NEUROLOGY: Denies headache, denies any new focal deficits. EARS/NOSE/THROAT: No recent hearing change, congestion, nasal discharge or sore throat. EYES: No pain in eyes, discharge or change in vision. GASTROINTESTINAL: As per HPI. Past Medical History Past Medical History: Asthma, Diabetes Mellitus, Skin Disorder Additional Past Medical History / Comment(s): IDDM type I, neuropathy bilateral feet, DKAs, eczema. History of Any Multi-Drug Resistant Organisms: None Reported Past Surgical History: Adenoidectomy Additional Past Surgical History / Comment(s): 2002 Past Anesthesia/Blood Transfusion Reactions: No Reported Reaction Past Psychological History: Anxiety, Depression Smoking Status: Former smoker Past Alcohol Use History: Occasional Past Drug Use History: Marijuana - Past Family History Mother Family Medical History: CVA/TIA Father Family Medical History: Hyperlipidemia, Hypertension Additional Family Medical History / Comment(s): . Medications and Allergies Home Medications Medication Instructions Recorded Confirmed Type Gabapentin [Neurontin] 600 mg PO BID 30 Days cap 09/01/19 04/12/20 Rx Insulin Lispro [Admelog] 10 units SQ AC-TID 09/01/19 04/12/20 History traZODone HCL [Desyrel] 200 mg PO HS 30 Days tab 09/01/19 04/12/20 Rx Insulin Lispro [Admelog] See Protocol SQ ACHS 12/15/19 04/12/20 History Insulin Glargine,Hum.rec.anlog 40 unit SQ DAILY 04/05/20 04/12/20 History [Lantus Solostar] Ondansetron [Zofran ODT] 4 mg PO Q8HR #12 tab 04/10/20 04/12/20 Rx Allergies Allergy/AdvReac Type Severity Reaction Status Date / Time No Known Allergies Allergy Verified 04/12/20 16:00 Physical Exam Vitals: Vital Signs Temp Pulse Resp BP Pulse Ox 04/18/20 07:25 66 16 04/18/20 07:00 98.4 F 66 16 124/83 98 04/18/20 00:50 97.8 F 65 14 115/76 98 04/17/20 19:05 98.2 F 70 14 118/76 97 04/17/20 13:55 98.4 F 62 16 117/78 99 Intake and Output 04/17/20 04/18/20 04/18/20 22:59 06:59 14:59 Intake Total 400 Output Total 1000 Balance -600 Intake: Oral 400 Output: Urine 300 Emesis 700 Other: Voiding Method Toilet Toilet Toilet # Voids 1 2 2 On physical examination, patient appears comfortable in no apparent distress. HEAD: Normocephalic, atraumatic. EYES: No scleral icterus. No conjunctival injection. MOUTH: No lesions, tongue midline. NECK: Trachea midline, no gross abnormalities. CHEST: Clear to auscultation with no wheezing or rhonchi appreciated. HEART: Regular rate and rhythm. ABDOMEN: Soft, thin and nontender. Bowel sounds are positive. No organomegaly. No guarding or rigidity. EXTREMITIES: No pedal edema. SKIN: No rashes, no jaundice. NEUROLOGIC: Alert and oriented x3. No focal deficits. Results CBC & Chem 7: 04/17/20 07:05 04/17/20 07:05 Labs: Abnormal Lab Results - Last 24 Hours (Table) 04/17/20 04/17/20 04/17/20 Range/Units 07:05 14:21 16:33 POC Glucose (mg/dL) 160 H 194 H (75-99) mg/dL Total Protein 4.7 L (6.2-8.2) g/dL Albumin 3.20 L (3.80-4.90) g/dL Globulin 1.5 L (1.6-3.3) g/dL 04/17/20 04/18/20 04/18/20 Range/Units 20:05 07:07 11:42 POC Glucose (mg/dL) 111 H 137 H 171 H (75-99) mg/dL Total Protein (6.2-8.2) g/dL Albumin (3.80-4.90) g/dL Globulin (1.6-3.3) g/dL Microbiology - Last 24 Hours (Table) 04/12/20 17:33 Blood Culture Gram Stain - Final Blood Blood Culture - Final Micrococcus species Chest x-ray: report reviewed Assessment and Plan (1) Chronic diarrhea Narrative/Plan: 24-year-old male with history of poorly controlled type 1 diabetes mellitus who presented to the hospital due to altered mental status and was treated for DKA. Patient has continued to have some persistent nausea and vomiting reporting episodes every 2-4 hours. Decreased oral intake. No abdominal pain reported. Suspicion is for nausea and vomiting in the setting of uncontrolled blood sugars, cannot rule out a component of marijuana hyperemesis syndrome or underlying gastroparesis. Current Visit: No Status: Acute Code(s): K52.9 - NONINFECTIVE GASTROENTERITIS AND COLITIS, UNSPECIFIED SNOMED Code(s): 490843160 (2) DKA (diabetic ketoacidoses) Current Visit: Yes Status: Acute Code(s): E13.10 - OTH DIABETES MELLITUS WITH KETOACIDOSIS WITHOUT COMA SNOMED Code(s): 061042733 Plan: Supportive care Okay for diet as tolerated Patient currently on Reglan, Zofran added [id number] and Tigan as needed for breakthrough nausea Tight glycemic control Aggressive electrolyte replacement as needed No plans for endoscopy at this time Thank you for allowing us to participate in the care of the patient
--- NOTE | 2020-04-19 13:30 | P.PN ---
Progress Note - Text Progress Note Date: 04/19/20 Interval History: Patient was seen today for psychiatric follow-up regarding depression. Patient states that he is feeling mildly better today overall as he is describing that his nausea and vomiting have improved since yesterday. He states that he is getting prn medications which is helping him. He states that he was seen by gastroenterology earlier today. He states that she was able to tolerate more liquids today. Patient appeared to be resting and states that he is currently recovering and his energy is gradually improving. He claims that he was able to sleep better last night and wants to remain on the same dose of trazodone. Her spoke with patient about other antidepressants which most likely have been leading to patient feeling more nauseous and advised against any SSRIs at this time. He denies any anxiety today. At this time patient denies any suicidal or homical ideations, intent or plan. Patient denies any auditory, visual hallucinations and denies any paranoia or delusions. Mental Status Exam: General Appearance: Patient appears to be stated age is alert, more cooperative today, directable. Patient appears to have improving hygiene and grooming. Behavior: Patient is laying in bed without any agitated behavior. Speech: Patient's speech is fluent and nonpressured. Soft tone. Mood/Affect: Patient reports their mood is improving, affect is congruent and constricted. Suicidality/Homicidality: Patient denies having any homicidal ideation intent or plan. He denies any suicidal thoughts however no intent or plan. Perceptions: Patient denies any visual hallucinations and denies any auditory hallucinations Though content/process: Goal oriented. Thompson. superficial. Denies any delusions or paranoia. Memory and concentration: AOX3, grossly intact for the purposes of this session Judgment and insight: Chronically poor, improving mildly Assessment Depressive disorder unspecified Anxiety disorder unspecified Cannabis abuse History of stimulant abuse. Plan: -At this time patient does NOT meet criteria for inpatient psychiatric hospitalization. -Would recommend the following medication changes/additions: It appears that patient is not able to tolerate any SSRIs at this point including Wellbutrin. We'll continue with trazodone 200 mg daily at bedtime for insomnia/mood. -Appreciate GI recommendations for patient's nausea/vomiting. -Psychiatry will sign off at this time. -Patient claims that he will be going back to his roommate's house to live with him. Patient will need to follow-up with [facility] for psychiatric outpatient care. -Please contact with any questions.
--- NOTE | 2020-04-19 14:54 | PN ---
PROGRESS NOTE DATE OF SERVICE: 04/19/2020 CHIEF COMPLAINT: PKA and persistent vomiting. HISTORY OF PRESENT ILLNESS: This gentleman is not doing any better. He is still having nausea and vomiting. He is being seen by Gastroenterology. This likely is due to gastroparesis. PHYSICAL EXAMINATION: Her abdomen is soft, nontender. Bowel sounds are normal. Chest is clear and cardiac exam is normal. IMPRESSION: 1. Persistent nausea and vomiting. 2. Possible gastroparesis. 3. PKA. 4. Uncontrolled type 1 insulin-dependent diabetes mellitus. PLAN: Continue with efforts to manage his nausea. MMODL / IJN: [id number] /
[2020-04-19 16:36] LABS: Glucose,Whole Blood 148 mg/dL (75-99)
--- NOTE | 2020-04-19 16:39 | P.PN ---
Subjective Progress Note Date: 04/19/20 Principal diagnosis: Nausea and vomiting, chronic diarrhea Patient is seen lying in bed today reporting that nausea is improved. No vomiting. He is tolerating some diet, but he does feel that his Glucerna supplements is intermittent into the nausea. Objective - Vital Signs Vital signs: Vital Signs Temp 98.1 F 04/19/20 07:00 Pulse 97 04/19/20 07:55 Resp 18 04/19/20 07:55 BP 108/69 04/19/20 07:00 Pulse Ox 99 04/19/20 07:00 Intake & Output 04/18/20 04/19/20 04/19/20 18:59 06:59 18:59 Intake Total 600 400 Output Total 1900 Balance -1300 400 Intake: Oral 600 400 Output: Urine 600 Emesis 1300 Other: Voiding Method Toilet Toilet Toilet # Voids 3 2 - Exam On physical examination, patient appears comfortable in no apparent distress. HEAD: Normocephalic, atraumatic. EYES: No scleral icterus. No conjunctival injection. MOUTH: No lesions, tongue midline. NECK: Trachea midline, no gross abnormalities. ABDOMEN: Soft, thin and nontender. Bowel sounds are positive. No organomegaly. No guarding or rigidity. EXTREMITIES: No pedal edema. SKIN: No rashes, no jaundice. NEUROLOGIC: Alert and oriented x3. No focal deficits. - Labs CBC & Chem 7: 04/17/20 07:05 04/17/20 07:05 Labs: Abnormal Lab Results - Last 24 Hours (Table) 04/18/20 04/18/20 04/18/20 Range/Units 16:49 17:08 17:41 POC Glucose (mg/dL) 55 L 59 L 127 H (75-99) mg/dL 04/18/20 04/19/20 Range/Units 20:52 11:25 POC Glucose (mg/dL) 171 H 186 H (75-99) mg/dL Microbiology - Last 24 Hours (Table) 04/12/20 17:33 Blood Culture Gram Stain - Final Blood Blood Culture - Final Micrococcus species Assessment and Plan (1) Chronic diarrhea Narrative/Plan: 24-year-old male with history of poorly controlled type 1 diabetes mellitus who presented to the hospital due to altered mental status and was treated for DKA. Patient has continued to have some persistent nausea and vomiting reporting episodes every 2-4 hours. Decreased oral intake. No abdominal pain reported. Suspicion is for nausea and vomiting in the setting of uncontrolled blood sugars, cannot rule out a component of marijuana hyperemesis syndrome or underlying gastroparesis. Symptomatically improving today. Current Visit: No Status: Acute Code(s): K52.9 - NONINFECTIVE GASTROENTERITI S AND COLITIS, UNSPECIFIED SNOMED Code(s): 150696247 (2) DKA (diabetic ketoacidoses) Current Visit: Yes Status: Acute Code(s): E13.10 - OTH DIABETES MELLITUS WITH KETOACIDOSIS WITHOUT COMA SNOMED Code(s): 976099896 (3) Nausea & vomiting Current Visit: No Status: Acute Code(s): R11.2 - NAUSEA WITH VOMITING, UNSPECIFIED SNOMED Code(s): 63487349 Plan: Supportive care Okay for diet as tolerated, instructed to avoid foods which worsen symptoms Patient currently on Reglan, Zofran added [id number] and Tigan as needed for breakthrough nausea Tight glycemic control Aggressive electrolyte replacement as needed No plans for endoscopy at this time Thank you for allowing us to participate in the care of the patient
[2020-04-19 19:48] VITALS: BP 110/71; PULSE 76; RESP 14; TEMP 98.4
[2020-04-19] MEDS: traZODone HCL 100 MG TAB PO SCH (20:47)
[2020-04-19 20:55] LABS: Glucose,Whole Blood 264 mg/dL (75-99)
--- NOTE | 2020-04-24 01:14 | CDI ---
Documentation Clarification Form Date: 04/24/2020 From: Choco Bolton Phone: If you have a question about this query, please contact Dianna Ontiveros Industrial Safety And Health Technician at [phone] between 8am and 5pm. Admit Date: 04/12/2020 Discharge Date: 04/20/2020 Patient Name: Raul Marquez Visit Number: [id number] ATTENTION: The Clinical Documentation Specialists (CDI) and [facility] Coding Staff appreciate your assistance in clarifying documentation. Please respond to the clarification below the line at the bottom and electronically sign. The CDI & [facility] Coding staff will review the response and follow-up if needed. Please note: Queries are made part of the Legal Health Record. If you have any questions, please contact the author of this message via ITS. Dear Brown Marroquin MD., The patient presented with the following AMS, Acute diabetic ketoacidosis, Altered mental status possible metabolic encephalopathy secondary to acidosis History/Risk Factors: SHANTEL, Hypokalemia, obesity, Asthma WBC : 48.5H Blood cultures: Micrococcus species Vitals signs on admission: 04/13/20 08:00 97.8 F 112 H 18 140/89 95 Treatment: IV ceftriaxone, Iv bolus DKA with severe metabolic acidosis and anion gap type.We'll likely improving.Anion gap metabolic acidosis still present in the serum bicarb is up to 8.She remains on insulin drip. ED mentioned as "Pneumonia, Diabetic ketoacidosis, Hypothermia, Sepsis" In your professional opinion, please clarify if these findings signify one of the following conditions, if known: Condition Sepsis ruled out Sepsis Other, please specify Unable to determine MTDD
--- NOTE | 2020-04-24 01:23 | CDI ---
Documentation Clarification Form Date: 04/24/2020 From: Choco Bolton Phone: If you have a question about this query, please contact Dianna Ontiveros Human Capital Consultant at [phone] between 8am and 5pm. Admit Date: 04/12/2020 Discharge Date: 04/20/2020 Patient Name: Raul Marquez Visit Number: [id number] ATTENTION: The Clinical Documentation Specialists (CDI) and [facility] Coding Staff appreciate your assistance in clarifying documentation. Please respond to the clarification below the line at the bottom and electronically sign. The CDI & [facility] Coding staff will review the response and follow-up if needed. Please note: Queries are made part of the Legal Health Record. If you have any questions, please contact the author of this message via ITS. Dear Brown Marroquin MD., Encephalopathy is documented in H&P as "Altered mental status possible metabolic encephalopathy secondary to acidosis". 04/14 PN by Zach Moore MD stated "Altered mental status possible metabolic encephalopathy secondary to acidosis, improved". DKA with severe metabolic acidosis and anion gap type.We'll likely improving.Anion gap metabolic acidosis still present in the serum bicarb is upto 8.She remains on insulin drip. History/Risk Factors: SHANTEL, Hypokalemia, obesity, Asthma WBC : 48.5H Blood cultures: Micrococcus species Vitals signs on admission: 04/13/20 08:00 97.8 F 112 H 18 140/89 95 Treatment: IV ceftriaxone, Iv bolus Patient will be continued on IV hydration and Insulin drip has been discontinued In your professional opinion, can you please clarify the specific type of Encephalopathy, if known? Metabolic Encephalopathy Septic Encephalopathy Other, please specify Unable to determine MTDD
--- NOTE | 2020-04-26 05:54 | MISC ---
MISCELLANOUS REPORT QUERY: Sepsis ruled out. Metabolic encephalopathy. MMODL / IJN: [id number] /
--- NOTE | 2020-04-27 05:52 | DS ---
DISCHARGE SUMMARY CHIEF COMPLAINT: DKA. HISTORY OF PRESENT ILLNESS AND PHYSICAL EXAM: Details of this man's history and physical can be found in the initial workup. LABORATORY STUDIES: While he was in a hospital he had laboratory studies, details of which can be found in the laboratory section of his chart. COURSE IN THE HOSPITAL: After admission, he was placed on bedrest, started on intravenous fluids and insulin drip and DKA protocol. Blood sugars came down. He continued to do fairly well, but he did have some difficulty with nausea and vomiting toward the end of his hospitalization. He stabilized. Blood sugars are doing well and it was felt that he could be discharged and then he signed out AMA. FINAL DIAGNOSES: 1. Diabetic ketoacidosis. 2. Poorly controlled type 1 insulin-dependent diabetes mellitus. 3. Intractable nausea and vomiting. 4. Gastroparesis. 5. Depression. 6. Personality disorder. OPERATIONS: None. CONSULTATION: None. He is improved. MMODL / TRAMN: [id number] /
== END 2020-04-20 01:00 | disposition left against medical advice (07) | DRG 637 ==
LOC: EC 14:48 → 2SICU 19:42 → 4SSUR 04-14 11:48
PROVIDERS: ADMIT Family Medicine; ATTEND Family Medicine
DX: E10.10 Type 1 diabetes mellitus with ketoacidosis without coma (principal); G93.41 Metabolic encephalopathy; N17.9 Acute kidney failure, unspecified; E87.6 Hypokalemia; E86.0 Dehydration; F32.9 Major depressive disorder, single episode, unspecified; F41.9 Anxiety disorder, unspecified; J45.20 Mild intermittent asthma, uncomplicated; K52.9 Noninfective gastroenteritis and colitis, unspecified; D72.823 Leukemoid reaction; E10.43 Type 1 diabetes mellitus with diabetic autonomic (poly)neuropathy; K31.84 Gastroparesis; Z79.4 Long term (current) use of insulin; Z79.899 Other long term (current) drug therapy; Z90.89 Acquired absence of other organs; Z87.09 Personal history of other diseases of the respiratory system; Z87.891 Personal history of nicotine dependence; Z82.49 Family history of ischemic heart disease and other diseases of the circulatory system; Z82.3 Family history of stroke; Z83.438 Family history of other disorder of lipoprotein metabolism and other lipidemia
CPT/HCPCS: 36415; 51701; 71045; 80048; 80053; 80076; 80306; 81001; 82009; 82150; 82803; 82805; 83605; 83690; 83735; 83930; 84100; 85025; 87040; 93005; 96360; 96361; 96365; 96366; 96368; 96372; 96374; 96375; 99284; 99291

== ENCOUNTER 2020-05-10 08:47 | Inpatient (IN) | payer OTHER ==
[2020-05-10] MEDS ORDERED: SODIUM CHLORIDE 0.9% 1,000 ML IV STA (08:54)
[2020-05-10] MEDS ORDERED: SODIUM CHLORIDE 0.9% 1,000 ML IV ONE ×2 (09:00→09:45)
[2020-05-10 09:02] LABS: Glucose,Whole Blood >600 mg/dL (75-99)
--- NOTE | 2020-05-10 09:15 | ED ---
General Adult HPI - General Chief complaint: Weakness Stated complaint: Weakness,DEMETRICE Time Seen by Provider: 05/10/20 08:48 Source: patient, RN notes reviewed, old records reviewed Mode of arrival: wheelchair Limitations: no limitations - History of Present Illness Initial comments: 24-year-old male presenting with weakness, respiratory distress. History of insulin-dependent diabetes and recurrent history of DKA. Patient unable to contribute to the history. Uncertain of when he last took his insulin. He was brought to the emergency department by his brother. Patient is lethargic, tachypneic. - Related Data Home Medications Medication Instructions Recorded Confirmed Insulin Lispro [Admelog] 10 units SQ AC-TID 09/01/19 05/10/20 Insulin Lispro [Admelog] See Protocol SQ ACHS 12/15/19 05/10/20 Insulin Glargine,Hum.rec.anlog 40 unit SQ DAILY 04/05/20 05/10/20 [Lantus Solostar] Previous Rx's Medication Instructions Recorded Gabapentin [Neurontin] 600 mg PO BID 30 Days cap 09/01/19 traZODone HCL [Desyrel] 200 mg PO HS 30 Days tab 09/01/19 Allergies Allergy/AdvReac Type Severity Reaction Status Date / Time No Known Allergies Allergy Verified 05/10/20 09:18 Review of Systems ROS Statement: Those systems with pertinent positive or pertinent negative responses have been documented in the HPI. ROS Other: All systems not noted in ROS Statement are negative. Past Medical History Past Medical History: Asthma, Diabetes Mellitus, Skin Disorder Additional Past Medical History / Comment(s): IDDM type I, neuropathy bilateral feet, DKAs, eczema. History of Any Multi-Drug Resistant Organisms: None Reported Past Surgical History: Adenoidectomy Additional Past Surgical History / Comment(s): 2002 Past Anesthesia/Blood Transfusion Reactions: No Reported Reaction Past Psychological History: Anxiety, Depression Smoking Status: Former smoker Past Alcohol Use History: Occasional Past Drug Use History: Marijuana - Past Family History Mother Family Medical History: CVA/TIA Father Family Medical History: Hyperlipidemia, Hypertension Additional Family Medical History / Comment(s): . General Exam Limitations: no limitations General appearance: lethargic, in distress Head exam: Present: atraumatic, normocephalic Eye exam: Present: normal appearance, PERRL ENT exam: Present: mucous membranes dry Neck exam: Present: normal inspection. Absent: tenderness, meningismus Respiratory exam: Present: respiratory distress Cardiovascular Exam: Present: normal rhythm, tachycardia GI/Abdominal exam: Present: soft. Absent: distended, tenderness, guarding, rebound Extremities exam: Absent: normal capillary refill Neurological exam: Absent: alert, oriented X3, motor sensory deficit Skin exam: Present: pallor. Absent: warm Course Vital Signs 05/10/20 05/10/20 05/10/20 08:50 09:15 09:17 Temperature 98 F Pulse Rate 60 112 H 100 Respiratory 18 35 H 27 H Rate Blood Pressure 103/61 121/70 111/61 O2 Sat by Pulse 75 L 97 99 Oximetry 05/10/20 05/10/20 09:30 09:45 Temperature Pulse Rate 109 H 106 H Respiratory 25 H 27 H Rate Blood Pressure 111/61 104/63 O2 Sat by Pulse 97 99 Oximetry - Reevaluation(s) Reevaluation #1: 05/10/20 10:[address] Montoya for ICU admission, there are currently no ICU beds. Reevaluation #2: 05/10/20 10:12 Patient more alert, increased Reevaluation #3: 05/10/20 10:16 According to new protocol patient will be admitted to [facility] physicians. Case discussed with Dr. Greene. EKG Findings - EKG Comments: EKG Findings:: EKG: Sinus tachycardia, artifact secondary to tachypnea prolonged QT, hyper acute T waves in V3 and V4, ventricular rate of 113, WI interval 128, QRS duration 110, QTC 532. Medical Decision Making - Medical Decision Making 24-year-old male presenting in severe DKA, tachypnea, tachycardic, lethargic upon arrival. IVs are established and patient is given normal saline bolus. Laboratory testing reveals severe DKA blood sugar 900, nondetectable CO2, both venous and arterial blood gas confirming a pH of 6.8. He is mildly hyperkalemic at 5.5, he is in acute kidney injury with an elevated serum creatinine. He is acetone positive. Additionally has a lactic acidosis. Both total of 3 L, started on 200 mL normal saline per hour. Case discussed with the admitting physician Dr. Greene and the industrial sales representative Dr. Montoya. - Lab Data Result diagrams: 05/10/20 09:03 05/10/20 09:03 Lab Results 05/10/20 05/10/20 05/10/20 Range/Units 08:56 09:03 09:03 WBC 38.1 H (3.8-10.6) k/uL RBC 5.18 (4.30-5.90) m/uL Hgb 16.0 D (13.0-17.5) gm/dL Hct 52.5 (39.0-53.0) % MCV 101.4 H D (80.0-100.0) fL MCH 30.8 (25.0-35.0) pg MCHC 30.4 L (31.0-37.0) g/dL RDW 13.5 (11.5-15.5) % Plt Count 546 H D (150-450) k/uL MPV 7.9 Neutrophils % (Manual) 81 % Band Neuts % (Manual) 4 % Lymphocytes % (Manual) 9 % Monocytes % (Manual) 3 % Metamyelocytes % 1 % Myelocytes % 3 % Neutrophils # (Manual) 32.30 H (1.3-7.7) k/uL Lymphocytes # (Manual) 3.43 (1.0-4.8) k/uL Monocytes # (Manual) 1.14 H (0-1.0) k/uL Metamyelocytes # (Man) 0.38 H (0) k/uL Myelocytes # (Manual) 1.14 H (0) k/uL Nucleated RBCs 0 (0-0) /100 WBC Toxic Granulation Present Hypochromasia Marked Poikilocytosis (manual Present Anisocytosis (manual) Present Macrocytosis Slight PT 10.5 (9.0-12.0) sec INR 1.0 (<1.2) APTT 33.4 H (22.0-30.0) sec Sample Site ABG pH (7.35-7.45) ABG pCO2 (35-45) mmHg ABG pO2 (83-108) mmHg ABG O2 Saturation (94-97) % Frank Test VBG pH (7.31-7.41) VBG pCO2 (37-51) mmHg VBG HCO3 (24-28) mmol/L FiO2 % Sodium (137-145) mmol/L Potassium (3.5-5.1) mmol/L Chloride (98-107) mmol/L Carbon Dioxide (22-30) mmol/L Anion Gap mmol/L BUN (9-20) mg/dL Creatinine (0.66-1.25) mg/dL Est GFR (CKD-EPI)AfAm (>60 ml/min/1.73 sqM) Est GFR (CKD-EPI)NonAf (>60 ml/min/1.73 sqM) Glucose (74-99) mg/dL POC Glucose (mg/dL) >600 H (75-99) mg/dL POC Glu Career Advisor ID Radha [place] Plasma Lactic Acid Len (0.7-2.0) mmol/L Calcium (8.4-10.2) mg/dL Magnesium (1.6-2.3) mg/dL Total Bilirubin (0.2-1.3) mg/dL AST (17-59) U/L ALT (4-49) U/L Alkaline Phosphatase (38-126) U/L Total Protein (6.3-8.2) g/dL Albumin (3.5-5.0) g/dL Urine Color Urine Appearance (Clear) Urine pH (5.0-8.0) Ur Specific [place] (1.001-1.035) Urine Protein (Negative) Urine Glucose (UA) (Negative) Urine Ketones (Negative) Urine Blood (Negative) Urine Nitrite (Negative) Urine Bilirubin (Negative) Urine Urobilinogen (<2.0) mg/dL Ur Leukocyte Esterase (Negative) Urine RBC (0-5) /hpf Urine WBC (0-5) /hpf Ur Squamous Epith Cells (0-4) /hpf Urine Bacteria (None) /hpf Hyaline Casts (0-2) /lpf Urine Mucus (None) /hpf Acetone, Qual (Negative) Coronavirus (PCR) (Not Detectd) 05/10/20 05/10/20 05/10/20 Range/Units 09:03 09:03 09:03 WBC (3.8-10.6) k/uL RBC (4.30-5.90) m/uL Hgb (13.0-17.5) gm/dL Hct (39.0-53.0) % MCV (80.0-100.0) fL MCH (25.0-35.0) pg MCHC (31.0-37.0) g/dL RDW (11.5-15.5) % Plt Count (150-450) k/uL MPV Neutrophils % (Manual) % Band Neuts % (Manual) % Lymphocytes % (Manual) % Monocytes % (Manual) % Metamyelocytes % % Myelocytes % % Neutrophils # (Manual) (1.3-7.7) k/uL Lymphocytes # (Manual) (1.0-4.8) k/uL Monocytes # (Manual) (0-1.0) k/uL Metamyelocytes # (Man) (0) k/uL Myelocytes # (Manual) (0) k/uL Nucleated RBCs (0-0) /100 WBC Toxic Granulation Hypochromasia Poikilocytosis (manual Anisocytosis (manual) Macrocytosis PT (9.0-12.0) sec INR (<1.2) APTT (22.0-30.0) sec Sample Site ABG pH (7.35-7.45) ABG pCO2 (35-45) mmHg ABG pO2 (83-108) mmHg ABG O2 Saturation (94-97) % Frank Test VBG pH 6.83 L* (7.31-7.41) VBG pCO2 12 L* (37-51) mmHg VBG HCO3 2 L* (24-28) mmol/L FiO2 % Sodium 138 (137-145) mmol/L Potassium 5.5 H (3.5-5.1) mmol/L Chloride 100 (98-107) mmol/L Carbon Dioxide <5 L* (22-30) mmol/L Anion Gap mmol/L BUN 21 H (9-20) mg/dL Creatinine 1.72 H (0.66-1.25) mg/dL Est GFR (CKD-EPI)AfAm 64 (>60 ml/min/1.73 sqM) Est GFR (CKD-EPI)NonAf 55 (>60 ml/min/1.73 sqM) Glucose 926 H* (74-99) mg/dL POC Glucose (mg/dL) (75-99) mg/dL POC Glu Career Advisor ID Plasma Lactic Acid Len 5.2 H* (0.7-2.0) mmol/L Calcium 9.1 (8.4-10.2) mg/dL Magnesium 2.4 H (1.6-2.3) mg/dL Total Bilirubin 0.4 (0.2-1.3) mg/dL AST 14 L (17-59) U/L ALT 15 (4-49) U/L Alkaline Phosphatase 123 (38-126) U/L Total Protein 7.8 (6.3-8.2) g/dL Albumin 5.1 H (3.5-5.0) g/dL Urine Color Urine Appearance (Clear) Urine pH (5.0-8.0) Ur Specific [place] (1.001-1.035) Urine Protein (Negative) Urine Glucose (UA) (Negative) Urine Ketones (Negative) Urine Blood (Negative) Urine Nitrite (Negative) Urine Bilirubin (Negative) Urine Urobilinogen (<2.0) mg/dL Ur Leukocyte Esterase (Negative) Urine RBC (0-5) /hpf Urine WBC (0-5) /hpf Ur Squamous Epith Cells (0-4) /hpf Urine Bacteria (None) /hpf Hyaline Casts (0-2) /lpf Urine Mucus (None) /hpf Acetone, Qual Positive (Negative) Coronavirus (PCR) (Not Detectd) 05/10/20 05/10/20 05/10/20 Range/Units 09:16 09:26 09:39 WBC (3.8-10.6) k/uL RBC (4.30-5.90) m/uL Hgb (13.0-17.5) gm/dL Hct (39.0-53.0) % MCV (80.0-100.0) fL MCH (25.0-35.0) pg MCHC (31.0-37.0) g/dL RDW (11.5-15.5) % Plt Count (150-450) k/uL MPV Neutrophils % (Manual) % Band Neuts % (Manual) % Lymphocytes % (Manual) % Monocytes % (Manual) % Metamyelocytes % % Myelocytes % % Neutrophils # (Manual) (1.3-7.7) k/uL Lymphocytes # (Manual) (1.0-4.8) k/uL Monocytes # (Manual) (0-1.0) k/uL Metamyelocytes # (Man) (0) k/uL Myelocytes # (Manual) (0) k/uL Nucleated RBCs (0-0) /100 WBC Toxic Granulation Hypochromasia Poikilocytosis (manual Anisocytosis (manual) Macrocytosis PT (9.0-12.0) sec INR (<1.2) APTT (22.0-30.0) sec Sample Site rbrach ABG pH 6.81 L* (7.35-7.45) ABG pCO2 <15 L* (35-45) mmHg ABG pO2 74 L (83-108) mmHg ABG O2 Saturation 88.8 L (94-97) % Frank Test Yes VBG pH (7.31-7.41) VBG pCO2 (37-51) mmHg VBG HCO3 (24-28) mmol/L FiO2 32 % Sodium (137-145) mmol/L Potassium (3.5-5.1) mmol/L Chloride (98-107) mmol/L Carbon Dioxide (22-30) mmol/L Anion Gap mmol/L BUN (9-20) mg/dL Creatinine (0.66-1.25) mg/dL Est GFR (CKD-EPI)AfAm (>60 ml/min/1.73 sqM) Est GFR (CKD-EPI)NonAf (>60 ml/min/1.73 sqM) Glucose (74-99) mg/dL POC Glucose (mg/dL) (75-99) mg/dL POC Glu Career Advisor ID Plasma Lactic Acid Len (0.7-2.0) mmol/L Calcium (8.4-10.2) mg/dL Magnesium (1.6-2.3) mg/dL Total Bilirubin (0.2-1.3) mg/dL AST (17-59) U/L ALT (4-49) U/L Alkaline Phosphatase (38-126) U/L Total Protein (6.3-8.2) g/dL Albumin (3.5-5.0) g/dL Urine Color Light Yellow Urine Appearance Clear (Clear) Urine pH 5.0 (5.0-8.0) Ur Specific [place] 1.021 (1.001-1.035) Urine Protein 1+ H (Negative) Urine Glucose (UA) 4+ H (Negative) Urine Ketones 4+ H (Negative) Urine Blood Small H (Negative) Urine Nitrite Negative (Negative) Urine Bilirubin Negative (Negative) Urine Urobilinogen <2.0 (<2.0) mg/dL Ur Leukocyte Esterase Negative (Negative) Urine RBC 3 (0-5) /hpf Urine WBC 1 (0-5) /hpf Ur Squamous Epith Cells <1 (0-4) /hpf Urine Bacteria Rare H (None) /hpf Hyaline Casts 4 H (0-2) /lpf Urine Mucus Rare H (None) /hpf Acetone, Qual (Negative) Coronavirus (PCR) Not Detected (Not Detectd) Critical Care Time Critical Care Time: Yes Total Critical Care Time: 35 Disposition Clinical Impression: DKA (diabetic ketoacidoses) Disposition: ADMITTED IP TO THIS [facility] Condition: Serious Is patient prescribed a controlled substance at d/c from ED?: No Referrals: Brown Valenzuela MD [Primary Care Provider] - 1-2 days Decision to Admit Reason: Admit from EC Decision Date: 05/10/20 Decision Time: 10:18
[2020-05-10 09:19] LABS: HCT 52.5 % (39.0-53.0); Hypochromasia Marked; MCH 30.8 pg (25.0-35.0); MCHC 30.4 g/dL (31.0-37.0); Macrocytosis Slight; Mean Platelet Volume 7.9; RBC 5.18 m/uL (4.30-5.90); RDW 13.5 % (11.5-15.5); WBC 38.1 k/uL (3.8-10.6)
[2020-05-10 09:23] LABS: VBG PH 6.83 (7.31-7.41)
[2020-05-10 09:26] LABS: MCV 101.4 fL (80.0-100.0); Platelet Count 546 k/uL (150-450)
--- NOTE | 2020-05-10 09:28 | XR ---
EXAMINATION TYPE: XR chest 1V portable DATE OF EXAM: 05/10/2020 COMPARISON: 04/13/2020 HISTORY: Shortness of breath TECHNIQUE: Single frontal view of the chest is obtained. FINDINGS: There is no focal air space opacity, pleural effusion, or pneumothorax seen. The cardiac silhouette size is within normal limits. The osseous structures are intact. Hyperinflation of the l ungs could be associated with COPD or asthma. Heart size normal. No overt failure. Small nodule overl michael the lateral margin of the left lower lung. IMPRESSION: 1. COPD. 2. There is a nodule overlying the lateral margin the left lung which is not seen on the prior exam a nd may be artifactual. Recommend short-term follow-up PA and lateral views of the chest.
[2020-05-10] MEDS ORDERED: INSULIN REGULAR BOLUS (FROM DRIP BAG) IV ONE (09:29)
[2020-05-10 09:30] LABS: ALT 15 U/L (4-49); AST 14 U/L (17-59); African American GFR (CKD) 64 (>60 ml/min/1.73 sqM); Albumin 5.1 g/dL (3.5-5.0); Alkaline Phosphatase 123 U/L (38-126); Blood Urea Nitrogen 21 mg/dL (9-20); Calcium 9.1 mg/dL (8.4-10.2); Chloride 100 mmol/L (98-107); Magnesium 2.4 mg/dL (1.6-2.3); Non-African American GFR(CKD) 55 (>60 ml/min/1.73 sqM); Potassium 5.5 mmol/L (3.5-5.1); Sodium 138 mmol/L (137-145); Total Bilirubin 0.4 mg/dL (0.2-1.3); Total Protein 7.8 g/dL (6.3-8.2)
[2020-05-10] MEDS ORDERED: SODIUM CHLORIDE 0.9% 1,000 ML IV SCH (09:30)
[2020-05-10] MEDS ORDERED: D5-0.45% NACL WITH KCL 20MEQ/L 1,000 ML IV SCH (09:30)
[2020-05-10 09:43] LABS: Carbon Dioxide <5 mmol/L (22-30); Glucose 926 mg/dL (74-99)
[2020-05-10 09:43] LABS: ABG Oxygen Saturation 88.8 % (94-97); ABG PO2 74 mmHg (83-108); Allen Test Performed? Yes
[2020-05-10 09:48] LABS: Appearance,Urine Clear (Clear); Bacteria,Urine Rare /hpf; Bilirubin,Urine Negative (Negative); Blood,Urine Small (Negative); Color,Urine Light Yellow; Glucose,Urine (UA) 4+ (Negative); Hyaline Casts,Urine 4 /lpf (0-2); Leukocyte Esterase,Urine Negative (Negative); Mucus,Urine Rare /hpf; Nitrite,Urine Negative (Negative); Protein,Urine 1+ (Negative); RBC,Urine 3 /hpf (0-5); Specific Gravity,Urine 1.021 (1.001-1.035); Squamous Epithelial Cell,Urine <1 /hpf (0-4); Urobilinogen,Urine <2.0 mg/dL (<2.0); WBC,Urine 1 /hpf (0-5)
[2020-05-10 09:49] LABS: ABG PCO2 <15 mmHg (35-45); ABG PH 6.81 (7.35-7.45)
[2020-05-10 09:53] LABS: Partial Thromboplastin Time 33.4 sec (22.0-30.0); Prothrombin Time 10.5 sec (9.0-12.0)
[2020-05-10 09:57] LABS: Anisocytosis (M) Present; Band Neutrophils % 4 %; Lymphocytes # (M) 3.43 k/uL (1.0-4.8); Metamyelocytes # (M) 0.38 k/uL (0); Metamyelocytes % 1 %; Monocytes # (M) 1.14 k/uL (0-1.0); Myelocytes # (M) 1.14 k/uL (0); Myelocytes % 3 %; Neutrophils % (M) 81 %; Nucleated Red Blood Cells 0 /100 WBC (0-0); Poikilocytosis (M) Present; Total Cells Counted 200; Toxic Granulation Present
[2020-05-10 09:59] LABS: Ketones,Urine 4+ (Negative)
[2020-05-10] MEDS: INSULIN REGULAR 100 UNIT in SODIUM CHLORIDE 0.9% 100 ML IV SCH (10:09)
[2020-05-10 10:20] LABS: Glucose,Whole Blood >600 mg/dL (75-99)
[2020-05-10] MEDS ORDERED: SODIUM BICARB IV ONE (11:00)
[2020-05-10] MEDS ORDERED: NACL IV ONE (11:00)
[2020-05-10] MEDS ORDERED: SODIUM BICARB 8.4% 50 ML SYR (1 MEQ/ML) IV STA (11:02)
[2020-05-10 11:20] LABS: Glucose,Whole Blood >600 mg/dL (75-99)
[2020-05-10] MEDS ORDERED: MELATONIN 3 MG TABLET PO PRN (11:38)
[2020-05-10] MEDS ORDERED: HYDROcodone/APAP 5-325MG 1 EACH TAB PO PRN (11:38)
[2020-05-10] MEDS ORDERED: Potassium Replacement Protocol 1 EACH MISC MISCELLANE PRN (11:38)
[2020-05-10] MEDS ORDERED: NALOXONE 0.4 MG/ML 1 ML VIAL IV PRN (11:38)
[2020-05-10] MEDS ORDERED: ACETAMINOPHEN TAB 325 MG TAB PO PRN (11:38)
[2020-05-10] MEDS ORDERED: Magnesium Replacement Protocol 1 EACH MISC MISCELLANE PRN (11:38)
--- NOTE | 2020-05-10 11:59 | P.HPIM ---
History of Present Illness H&P Date: 05/10/20 Chief Complaint: confusion Patient is a 24 yo CM with DM 1 with non complience and hx of multiple DKA episodes in the past who presented to the emergency department with complaints of weakness and respiratory distress. He was found to have DKA with a pH of 6.8. On arrival his HR was 112 an RR 35. Laboratory analysis showed white blood cell count 38.1, platelets 546, lactic acid 5.2. The remainder of his blood work was consistent with severe DKA and a bicarb of less than 5. Urinalysis was negative. Coated was negative. Chest x-ray demonstrated prior nodule and no s igns of pneumonia or pleural effusion. He was started on IV fluids and insulin drip by the emergency department. Patient seen and examined at bedside in the ER. He reports he came to the ER because he was feeling extremely short of breath and fatigue. He had not taken his insulin in approximately one week. He denies chest pain, states his breathing is better, denies nausea, vomiting. He denies any abdominal pain. He denies dysuria. She complains of feeling very fatigued. He states that he was diagnosed with diabetes at age 18. Review of Systems Pertinent positives and negatives as discussed in HPI, a complete review of systems was performed and all other systems are negative. Past Medical History Past Medical History: Asthma, Diabetes Mellitus, Skin Disorder Additional Past Medical History / Comment(s): IDDM type I, neuropathy bilateral feet, DKA, eczema. History of multiple psychiatric hospitalizations or suicide attempts. History of Any Multi-Drug Resistant Organisms: None Reported Past Surgical History: Adenoidectomy Additional Past Surgical History / Comment(s): 2002 Past Anesthesia/Blood Transfusion Reactions: No Reported Reaction Past Psychological History: Anxiety, Depression Smoking Status: Former smoker Past Alcohol Use History: Occasional Past Drug Use History: Marijuana - Past Family History Mother Family Medical History: CVA/TIA Father Family Medical History: Hyperlipidemia, Hypertension Additional Family Medical History / Comment(s): . Medications and Allergies Home Medications Medication Instructions Recorded Confirmed Type Gabapentin [Neurontin] 600 mg PO BID 30 Days cap 09/01/19 05/10/20 Rx Insulin Lispro [Admelog] 10 units SQ AC-TID 09/01/19 05/10/20 History traZODone HCL [Desyrel] 200 mg PO HS 30 Days tab 09/01/19 05/10/20 Rx Insulin Lispro [Admelog] See Protocol SQ ACHS 12/15/19 05/10/20 History Insulin Glargine,Hum.rec.anlog 40 unit SQ DAILY 04/05/20 05/10/20 History [Lantus Solostar] Allergies Allergy/AdvReac Type Severity Reaction Status Date / Time No Known Allergies Allergy Verified 05/10/20 09:18 Physical Exam Osteopathic Statement: *. No significant issues noted on an osteopathic structural exam other than those noted in the History and Physical/Consult. Vitals: Vital Signs Temp Pulse Resp BP Pulse Ox 05/10/20 11:00 109 H 30 H 113/79 83 L 05/10/20 10:30 99 23 109/60 92 L 05/10/20 10:00 103 H 33 H 98/61 100 05/10/20 09:45 106 H 27 H 104/63 99 05/10/20 09:30 109 H 25 H 111/61 97 05/10/20 09:17 100 27 H 111/61 99 05/10/20 09:15 112 H 35 H 121/70 97 05/10/20 08:50 98 F 60 18 103/61 75 L Intake and Output 05/09/20 05/10/20 05/10/20 22:59 06:59 14:59 Other: Weight 54.431 kg General: Ill-appearing, moderate distress, appears older than stated age Derm: warm, dry, positive skin tenting Head: atraumatic, normocephalic, symmetric Eyes: EOMI, no lid lag, anicteric sclera, pupils equal round reactive to light ENT: Nose and ears atraumatic, no thrush, no pharyngeal erythema Neck: No thyromegaly, no cervical lymphadenopathy, trachea midline, supple Mouth: no lip lesion, dry mucous membranes Cardiovascular: S1 and S2 tachycardic, no murmur, positive posterior tibial pulse bilateral, no edema, capillary refill less than 2 seconds Lungs: clear to ascultation bilateral, no ronchi, no rales, no wheeze, + accessory muscle use, 3 word conversational dyspnea Abdominal: soft, nontender to palpation, no guarding, no appreciable organomegaly, normal bowel sounds Ext: no gross muscle atrophy, muscle strength muscle strength 5 out of 5 in all 4 extremities, no contractures Neuro: CN II-XI grossly intact, light touch intact all 4 extremities, finger to nose within normal limits, Psych: Awake, but falls asleep easily, oriented 3 Results CBC & Chem 7: 05/10/20 09:03 05/10/20 12:58 Labs: Abnormal Lab Results - Last 24 Hours (Table) 05/10/20 05/10/20 05/10/20 Range/Units 08:56 09:03 09:03 WBC 38.1 H (3.8-10.6) k/uL MCV 101.4 H D (80.0-100.0) fL MCHC 30.4 L (31.0-37.0) g/dL Plt Count 546 H D (150-450) k/uL Neutrophils # (Manual) 32.30 H (1.3-7.7) k/uL Monocytes # (Manual) 1.14 H (0-1.0) k/uL Metamyelocytes # (Man) 0.38 H (0) k/uL Myelocytes # (Manual) 1.14 H (0) k/uL APTT 33.4 H (22.0-30.0) sec ABG pH (7.35-7.45) ABG pCO2 (35-45) mmHg ABG pO2 (83-108) mmHg ABG O2 Saturation (94-97) % VBG pH (7.31-7.41) VBG pCO2 (37-51) mmHg VBG HCO3 (24-28) mmol/L Potassium (3.5-5.1) mmol/L Carbon Dioxide (22-30) mmol/L BUN (9-20) mg/dL Creatinine (0.66-1.25) mg/dL Glucose (74-99) mg/dL POC Glucose (mg/dL) >600 H (75-99) mg/dL Plasma Lactic Acid Len (0.7-2.0) mmol/L Magnesium (1.6-2.3) mg/dL AST (17-59) U/L Albumin (3.5-5.0) g/dL Urine Protein (Negative) Urine Glucose (UA) (Negative) Urine Ketones (Negative) Urine Blood (Negative) Urine Bacteria (None) /hpf Hyaline Casts (0-2) /lpf Urine Mucus (None) /hpf 05/10/20 05/10/20 05/10/20 Range/Units 09:03 09:03 09:03 WBC (3.8-10.6) k/uL MCV (80.0-100.0) fL MCHC (31.0-37.0) g/dL Plt Count (150-450) k/uL Neutrophils # (Manual) (1.3-7.7) k/uL Monocytes # (Manual) (0-1.0) k/uL Metamyelocytes # (Man) (0) k/uL Myelocytes # (Manual) (0) k/uL APTT (22.0-30.0) sec ABG pH (7.35-7.45) ABG pCO2 (35-45) mmHg ABG pO2 (83-108) mmHg ABG O2 Saturation (94-97) % VBG pH 6.83 L* (7.31-7.41) VBG pCO2 12 L* (37-51) mmHg VBG HCO3 2 L* (24-28) mmol/L Potassium 5.5 H (3.5-5.1) mmol/L Carbon Dioxide <5 L* (22-30) mmol/L BUN 21 H (9-20) mg/dL Creatinine 1.72 H (0.66-1.25) mg/dL Glucose 926 H* (74-99) mg/dL POC Glucose (mg/dL) (75-99) mg/dL Plasma Lactic Acid Len 5.2 H* (0.7-2.0) mmol/L Magnesium 2.4 H (1.6-2.3) mg/dL AST 14 L (17-59) U/L Albumin 5.1 H (3.5-5.0) g/dL Urine Protein (Negative) Urine Glucose (UA) (Negative) Urine Ketones (Negative) Urine Blood (Negative) Urine Bacteria (None) /hpf Hyaline Casts (0-2) /lpf Urine Mucus (None) /hpf 05/10/20 05/10/20 05/10/20 Range/Units 09:26 09:39 10:19 WBC (3.8-10.6) k/uL MCV (80.0-100.0) fL MCHC (31.0-37.0) g/dL Plt Count (150-450) k/uL Neutrophils # (Manual) (1.3-7.7) k/uL Monocytes # (Manual) (0-1.0) k/uL Metamyelocytes # (Man) (0) k/uL Myelocytes # (Manual) (0) k/uL APTT (22.0-30.0) sec ABG pH 6.81 L* (7.35-7.45) ABG pCO2 <15 L* (35-45) mmHg ABG pO2 74 L (83-108) mmHg ABG O2 Saturation 88.8 L (94-97) % VBG pH (7.31-7.41) VBG pCO2 (37-51) mmHg VBG HCO3 (24-28) mmol/L Potassium (3.5-5.1) mmol/L Carbon Dioxide (22-30) mmol/L BUN (9-20) mg/dL Creatinine (0.66-1.25) mg/dL Glucose (74-99) mg/dL POC Glucose (mg/dL) >600 H (75-99) mg/dL Plasma Lactic Acid Len (0.7-2.0) mmol/L Magnesium (1.6-2.3) mg/dL AST (17-59) U/L Albumin (3.5-5.0) g/dL Urine Protein 1+ H (Negative) Urine Glucose (UA) 4+ H (Negative) Urine Ketones 4+ H (Negative) Urine Blood Small H (Negative) Urine Bacteria Rare H (None) /hpf Hyaline Casts 4 H (0-2) /lpf Urine Mucus Rare H (None) /hpf 05/10/20 Range/Units 11:19 WBC (3.8-10.6) k/uL MCV (80.0-100.0) fL MCHC (31.0-37.0) g/dL Plt Count (150-450) k/uL Neutrophils # (Manual) (1.3-7.7) k/uL Monocytes # (Manual) (0-1.0) k/uL Metamyelocytes # (Man) (0) k/uL Myelocytes # (Manual) (0) k/uL APTT (22.0-30.0) sec ABG pH (7.35-7.45) ABG pCO2 (35-45) mmHg ABG pO2 (83-108) mmHg ABG O2 Saturation (94-97) % VBG pH (7.31-7.41) VBG pCO2 (37-51) mmHg VBG HCO3 (24-28) mmol/L Potassium (3.5-5.1) mmol/L Carbon Dioxide (22-30) mmol/L BUN (9-20) mg/dL Creatinine (0.66-1.25) mg/dL Glucose (74-99) mg/dL POC Glucose (mg/dL) >600 H (75-99) mg/dL Plasma Lactic Acid Len (0.7-2.0) mmol/L Magnesium (1.6-2.3) mg/dL AST (17-59) U/L Albumin (3.5-5.0) g/dL Urine Protein (Negative) Urine Glucose (UA) (Negative) Urine Ketones (Negative) Urine Blood (Negative) Urine Bacteria (None) /hpf Hyaline Casts (0-2) /lpf Urine Mucus (None) /hpf Chest x-ray: report reviewed, image reviewed Thrombosis Risk Factor Assmnt - DVT/VTE Prophylaxis DVT/VTE Prophylaxis: Pharmacologic Prophylaxis ordered Assessment and Plan Assessment: Severe DKA with a pH of less than 6.9 -1 amp of bicarb in 500 mL of 0.45 normal saline to run at 250 mL an hour 2 hours, repeat VBG was obtained which showed improvement in pH -Continue with insulin drip -Accu-Cheks every hour, goal is change of blood sugar by 100 per hour -Electrolytes every 4 -Nursing report blood sugar every hour -Further orders as indicated - check lipase SHANTEL due to dehydration - IVF - Avoid nephrotoxic agents - follow Cr Hyperkalemia - due to potassium shifts from severe acidosis - follow q4 hour - IV fluids Lactic acidosis - IVF - follow lactic acid levels Leukocytosis and thrombocytosis - suspect reactive - CXR without infectious process, Ua negative - check lipase - repeat CBC in AM The patient is admitted with an anticipated greater than 2 midnight stay for evaluation of []. Surrogate decision-maker:mother CODE STATUS:Full DVT prophylaxis: SCDs Discussed with: patient, nursing, ed physician Anticipated discharge date: 2-[address]: home A total of 65 minutes of critical care time was spent on the care of this complex patient more than 50% of the time was spent in counseling and care coordination. D/W nursing multiple time through out the day. Patient's blood sugar changed rapidly. In order to compensate for this Inulin gtt was decreased, patient was started on fluids containing D5 as insulin gtt could not be held due to severe acidosis. IV fluids were increased. Will continue to follow q1 hour sugars close. Patient is at risk of cerebral edema. Monitor closely.
[2020-05-10 12:44] LABS: Glucose,Whole Blood 550 mg/dL (75-99)
[2020-05-10 13:28] LABS: African American GFR (CKD) >90 (>60 ml/min/1.73 sqM); Blood Urea Nitrogen 19 mg/dL (9-20); Chloride 109 mmol/L (98-107); Non-African American GFR(CKD) >90 (>60 ml/min/1.73 sqM); Phosphorus 5.3 mg/dL (2.5-4.5); Potassium 5.2 mmol/L (3.5-5.1); Sodium 140 mmol/L (137-145)
[2020-05-10 13:31] LABS: Carbon Dioxide <5 mmol/L (22-30); Glucose 501 mg/dL (74-99)
[2020-05-10 13:40] LABS: Glucose,Whole Blood 339 mg/dL (75-99)
[2020-05-10 14:42] LABS: Glucose,Whole Blood 298 mg/dL (75-99)
--- NOTE | 2020-05-10 15:12 | P.CNPUL ---
History of Present Illness Consult date: 05/10/20 Requesting physician: Ingrid Greene Reason for consult: other (Critical care management) Chief complaint: Weakness, hyperventilation History of present illness: This is a 24-year-old male patient who follows with Dr. Lana castillo as his primary care provider. He has a history of mild intermittent chronic bronchial asthma, smoking, occasional marijuana use. 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 He's had multiple admissions for diabetic ketoacidosis and a history of insulin noncompliance. He was brought into the emergency room again this morning by his brother. He was quite weak and hyperventilating. He was also found to have altered mental status. He is seen in consultation this morning in the emergency room. He is quite restless. Moving all fours. Attempting to climb off the stretcher. He is tachypneic. Tachycardic. White count 38. Hemoglobin 16.0. MCV 11.4. Arterial blood gases revealed a pH of 6.81, pCO2 less than 15, pO2 74 on 32% FiO2. Chest x-ray reveals evidence of COPD/asthma. No acute pulmonary process. Sodium 140. Potassium 5.2. Bicarb less than 5. Anion Gap not calculated. Creatinine 1.08. Initial blood glucose 926. Currently 501. Urinalysis with 4+ ketones. Acetone positive. Bay virus by PCR not detected. He received 4 L of fluid resuscitation, 2 A of bicarbonate. His been initiated on a insulin drip currently at 0.09 units per kilogram per hour. D5 and half-normal saline with 20 mEq of potassium chloride at 150 MLS per hour. Review of Systems ROS unobtainable: due to mental status Past Medical History Past Medical History: Asthma, Diabetes Mellitus, Skin Disorder Additional Past Medical History / Comment(s): IDDM type I, neuropathy bilateral feet, DKAs, eczema. History of Any Multi-Drug Resistant Organisms: None Reported Past Surgical History: Adenoidectomy Additional Past Surgical History / Comment(s): 2002 Past Anesthesia/Blood Transfusion Reactions: No Reported Reaction Past Psychological History: Anxiety, Depression Smoking Status: Former smoker Past Alcohol Use History: Occasional Past Drug Use History: Marijuana - Past Family History Mother Family Medical History: CVA/TIA Father Family Medical History: Hyperlipidemia, Hypertension Additional Family Medical History / Comment(s): . Medications and Allergies Home Medications Medication Instructions Recorded Confirmed Type Gabapentin [Neurontin] 600 mg PO BID 30 Days cap 09/01/19 05/10/20 Rx Insulin Lispro [Admelog] 10 units SQ AC-TID 09/01/19 05/10/20 History traZODone HCL [Desyrel] 200 mg PO HS 30 Days tab 09/01/19 05/10/20 Rx Insulin Lispro [Admelog] See Protocol SQ ACHS 12/15/19 05/10/20 History Insulin Glargine,Hum.rec.anlog 40 unit SQ DAILY 04/05/20 05/10/20 History [Lantus Solostar] Allergies Allergy/AdvReac Type Severity Reaction Status Date / Time No Known Allergies Allergy Verified 05/10/20 09:18 Physical Exam Vitals: Vital Signs Temp Pulse Resp BP Pulse Ox 05/10/20 14:30 101 H 14 118/85 100 05/10/20 14:00 102 H 16 114/92 100 05/10/20 13:30 101 H 33 H 122/92 100 05/10/20 13:00 106 H 20 124/82 100 05/10/20 12:30 112 H 21 107/74 100 05/10/20 12:00 112 H 23 101/74 99 05/10/20 11:30 110 H 24 121/78 99 05/10/20 11:00 109 H 30 H 113/79 83 L 05/10/20 10:30 99 23 109/60 92 L 05/10/20 10:00 103 H 33 H 98/61 100 05/10/20 09:45 106 H 27 H 104/63 99 05/10/20 09:30 109 H 25 H 111/61 97 05/10/20 09:17 100 27 H 111/61 99 05/10/20 09:15 112 H 35 H 121/70 97 05/10/20 08:50 98 F 60 18 103/61 75 L Intake and Output 05/09/20 05/10/20 05/10/20 22:59 06:59 14:59 Intake Total 25.434 Balance 25.434 Intake: Intake, IV Titration 25.434 Amount Insulin Regular 100 unit 25.434 In Sodium Chloride 0.9% 100 ml @ 0.1 UNITS/KG/HR 5.498 mls/hr IV .[id number] [facility] Rx#:[id number] Other: Weight 54.431 kg GENERAL EXAM: Confused, restless, thin 24-year-old male patient, on room air, comfortable in no apparent distress. HEAD: Normocephalic. EYES: Normal reaction of pupils, equal size. NOSE: Clear with pink turbinates. THROAT: No erythema or exudates. NECK: No masses, no JVD. CHEST: No chest wall deformity. LUNGS: Equal air entry with no crackles, wheeze, rhonchi or dullness. CVS: S1 and S2 normal with no audible murmur, regular rhythm. ABDOMEN: No hepatosplenomegaly, normal bowel sounds, no guarding or rigidity. SPINE: No scoliosis or deformity SKIN: No rashes CENTRAL NERVOUS SYSTEM: No focal deficits, tone is normal in all 4 extremities. EXTREMITIES: There is no peripheral edema. No clubbing, no cyanosis. Peripheral pulses are intact. Results - Laboratory Findings CBC and BMP: 05/10/20 09:03 05/10/20 12:58 ABG ABG pH 6.81 (7.35-7.45) L* 05/10/20 09:39 ABG pCO2 <15 mmHg (35-45) L* 05/10/20 09:39 ABG pO2 74 mmHg (83-108) L 05/10/20 09:39 ABG O2 Saturation 88.8 % (94-97) L 05/10/20 09:39 PT/INR, D-dimer PT 10.5 sec (9.0-12.0) 05/10/20 09:03 INR 1.0 (<1.2) 05/10/20 09:03 Abnormal lab findings: Abnormal Labs 05/10/20 05/10/20 05/10/20 08:56 09:03 09:03 WBC 38.1 H MCV 101.4 H D MCHC 30.4 L Plt Count 546 H D Neutrophils # (Manual) 32.30 H Monocytes # (Manual) 1.14 H Metamyelocytes # (Man) 0.38 H Myelocytes # (Manual) 1.14 H APTT 33.4 H ABG pH ABG pCO2 ABG pO2 ABG O2 Saturation VBG pH VBG pCO2 VBG HCO3 Potassium Chloride Carbon Dioxide BUN Creatinine Glucose POC Glucose (mg/dL) >600 H Plasma Lactic Acid Len Phosphorus Magnesium AST Albumin Urine Protein Urine Glucose (UA) Urine Ketones Urine Blood Urine Bacteria Hyaline Casts Urine Mucus 05/10/20 05/10/20 05/10/20 09:03 09:03 09:03 WBC MCV MCHC Plt Count Neutrophils # (Manual) Monocytes # (Manual) Metamyelocytes # (Man) Myelocytes # (Manual) APTT ABG pH ABG pCO2 ABG pO2 ABG O2 Saturation VBG pH 6.83 L* VBG pCO2 12 L* VBG HCO3 2 L* Potassium 5.5 H Chloride Carbon Dioxide <5 L* BUN 21 H Creatinine 1.72 H Glucose 926 H* POC Glucose (mg/dL) Plasma Lactic Acid Len 5.2 H* Phosphorus Magnesium 2.4 H AST 14 L Albumin 5.1 H Urine Protein Urine Glucose (UA) Urine Ketones Urine Blood Urine Bacteria Hyaline Casts Urine Mucus 05/10/20 05/10/20 05/10/20 09:26 09:39 10:19 WBC MCV MCHC Plt Count Neutrophils # (Manual) Monocytes # (Manual) Metamyelocytes # (Man) Myelocytes # (Manual) APTT ABG pH 6.81 L* ABG pCO2 <15 L* ABG pO2 74 L ABG O2 Saturation 88.8 L VBG pH VBG pCO2 VBG HCO3 Potassium Chloride Carbon Dioxide BUN Creatinine Glucose POC Glucose (mg/dL) >600 H Plasma Lactic Acid Len Phosphorus Magnesium AST Albumin Urine Protein 1+ H Urine Glucose (UA) 4+ H Urine Ketones 4+ H Urine Blood Small H Urine Bacteria Rare H Hyaline Casts 4 H Urine Mucus Rare H 05/10/20 05/10/20 05/10/20 11:19 11:37 12:08 WBC MCV MCHC Plt Count Neutrophils # (Manual) Monocytes # (Manual) Metamyelocytes # (Man) Myelocytes # (Manual) APTT ABG pH ABG pCO2 ABG pO2 ABG O2 Saturation VBG pH VBG pCO2 VBG HCO3 Potassium Chloride Carbon Dioxide BUN Creatinine Glucose 625 H* POC Glucose (mg/dL) >600 H Plasma Lactic Acid Len 3.6 H* Phosphorus Magnesium AST Albumin Urine Protein Urine Glucose (UA) Urine Ketones Urine Blood Urine Bacteria Hyaline Casts Urine Mucus 05/10/20 05/10/20 05/10/20 12:42 12:58 12:58 WBC MCV MCHC Plt Count Neutrophils # (Manual) Monocytes # (Manual) Metamyelocytes # (Man) Myelocytes # (Manual) APTT ABG pH ABG pCO2 ABG pO2 ABG O2 Saturation VBG pH 7.00 L* VBG pCO2 19 L VBG HCO3 4 L* Potassium 5.2 H Chloride 109 H Carbon Dioxide <5 L* BUN Creatinine Glucose 501 H* POC Glucose (mg/dL) 550 H Plasma Lactic Acid Len Phosphorus 5.3 H Magnesium AST Albumin Urine Protein Urine Glucose (UA) Urine Ketones Urine Blood Urine Bacteria Hyaline Casts Urine Mucus 05/10/20 05/10/20 13:38 14:40 WBC MCV MCHC Plt Count Neutrophils # (Manual) Monocytes # (Manual) Metamyelocytes # (Man) Myelocytes # (Manual) APTT ABG pH ABG pCO2 ABG pO2 ABG O2 Saturation VBG pH VBG pCO2 VBG HCO3 Potassium Chloride Carbon Dioxide BUN Creatinine Glucose POC Glucose (mg/dL) 339 H 298 H Plasma Lactic Acid Len Phosphorus Magnesium AST Albumin Urine Protein Urine Glucose (UA) Urine Ketones Urine Blood Urine Bacteria Hyaline Casts Urine Mucus - Diagnostic Findings Chest x-ray: image reviewed Assessment and Plan Assessment: 1 Acute diabetic ketoacidosis with severe metabolic acidosis. The patient is severely hyperglycemic, dehydrated, volume depleted and acidotic with a pH of 6.81, CO2 less than 15, bicarb less than 5. He is status post 4 L of IV fluid resuscitation with a D5 and half-normal saline with 20 of KCl running at 150 MLS per hour. He remains on insulin drip. 2 Leukocytosis, likely reactive, chest x-ray does not reveal any evidence of pneumonia 3 Altered mental status secondary to above 4 History of diabetes mellitus, type I with a history of medication noncompli ance 5 Multiple admissions for DKA 6 Mild intermittent chronic bronchial asthma, currently inactive in stable 7 History of depression 8 History of anxiety 9 History of marijuana use Plan: The patient was seen and evaluated by Dr. Montoya Chest x-ray, labs reviewed Received fluid resuscitation and IV bicarb Continue insulin drip Continue current IV fluids per DKA protocol Transfer to ICU once a bed is available or until gap is closed We will continue to follow and make further recommendations based on his clinical status I, the cosigning physician, performed a history & physical examination of the patient. Lungs sounds are clear. Maintaining good O2 saturations in the 90s on room air. I discussed the assessment and plan of care with my nurse practitioner, Jillian Vega. I attest to the above consultation as dictated by her. Time with Patient: Greater than 30
[2020-05-10 15:47] LABS: Glucose,Whole Blood 235 mg/dL (75-99)
[2020-05-10 16:45] LABS: Glucose,Whole Blood 210 mg/dL (75-99)
[2020-05-10] MEDS: D5-0.45% NACL WITH KCL 20MEQ/L 1,000 ML IV SCH ×2 (16:54→19:35)
[2020-05-10 17:49] LABS: Glucose,Whole Blood 208 mg/dL (75-99)
[2020-05-10 18:11] LABS: African American GFR (CKD) >90 (>60 ml/min/1.73 sqM); Anion Gap 16 mmol/L; Blood Urea Nitrogen 15 mg/dL (9-20); Chloride 110 mmol/L (98-107); Glucose 217 mg/dL (74-99); Lipase 47 U/L (23-300); Non-African American GFR(CKD) >90 (>60 ml/min/1.73 sqM); Phosphorus 1.5 mg/dL (2.5-4.5); Potassium 4.2 mmol/L (3.5-5.1); Sodium 135 mmol/L (137-145)
[2020-05-10 18:19] LABS: Carbon Dioxide 9 mmol/L (22-30)
[2020-05-10 18:51] LABS: Glucose,Whole Blood 194 mg/dL (75-99)
[2020-05-10] MEDS ORDERED: Phosphorus Replacement Protoco 1 EACH MISC MISCELLANE PRN (19:41)
[2020-05-10 19:42] LABS: Glucose,Whole Blood 172 mg/dL (75-99)
[2020-05-10] MEDS: POTASSIUM CHLORIDE 10 MEQ in WATER FOR INJECTION 1 100ML.BAG IVPB SCH ×4 (20:18→23:55)
[2020-05-10] MEDS: SODIUM PHOSPHATE 10 MMOL in SODIUM CHLORIDE 0.9% 250 ML IVPB SCH ×2 (20:18→22:32)
[2020-05-10 20:40] LABS: Glucose,Whole Blood 194 mg/dL (75-99)
[2020-05-10 21:20] LABS: African American GFR (CKD) >90 (>60 ml/min/1.73 sqM); Anion Gap 11 mmol/L; Blood Urea Nitrogen 13 mg/dL (9-20); Calcium 8.4 mg/dL (8.4-10.2); Carbon Dioxide 13 mmol/L (22-30); Chloride 110 mmol/L (98-107); Glucose 196 mg/dL (74-99); Non-African American GFR(CKD) >90 (>60 ml/min/1.73 sqM); Potassium 4.2 mmol/L (3.5-5.1); Sodium 134 mmol/L (137-145)
[2020-05-10] MEDS: ONDANSETRON 4 MG/2 ML VIAL IVP PRN (21:35)
[2020-05-10 21:41] LABS: Glucose,Whole Blood 188 mg/dL (75-99)
[2020-05-10 22:36] LABS: Glucose,Whole Blood 194 mg/dL (75-99)
[2020-05-10 23:42] LABS: Glucose,Whole Blood 195 mg/dL (75-99)
[2020-05-11 00:47] LABS: Glucose,Whole Blood 213 mg/dL (75-99)
[2020-05-11] MEDS: D5-0.45% NACL WITH KCL 20MEQ/L 1,000 ML IV SCH ×2 (00:56→06:10)
[2020-05-11 01:41] LABS: Glucose,Whole Blood 163 mg/dL (75-99)
[2020-05-11 01:42] LABS: African American GFR (CKD) >90 (>60 ml/min/1.73 sqM); Anion Gap 9 mmol/L; Blood Urea Nitrogen 10 mg/dL (9-20); Calcium 8.1 mg/dL (8.4-10.2); Carbon Dioxide 15 mmol/L (22-30); Chloride 111 mmol/L (98-107); Glucose 204 mg/dL (74-99); Non-African American GFR(CKD) >90 (>60 ml/min/1.73 sqM); Potassium 4.1 mmol/L (3.5-5.1); Sodium 135 mmol/L (137-145)
[2020-05-11 02:59] LABS: Glucose,Whole Blood 178 mg/dL (75-99)
[2020-05-11 04:13] LABS: Glucose,Whole Blood 168 mg/dL (75-99)
[2020-05-11 05:15] LABS: Glucose,Whole Blood 154 mg/dL (75-99)
[2020-05-11 05:57] LABS: HCT 36.5 % (39.0-53.0); HGB 13.1 gm/dL (13.0-17.5); MCH 31.7 pg (25.0-35.0); MCHC 35.9 g/dL (31.0-37.0); Mean Platelet Volume 6.6; Platelet Count 311 k/uL (150-450); RBC 4.13 m/uL (4.30-5.90); RDW 13.9 % (11.5-15.5); WBC 15.8 k/uL (3.8-10.6)
[2020-05-11 06:00] LABS: ALT 8 U/L (4-49); AST 13 U/L (17-59); African American GFR (CKD) >90 (>60 ml/min/1.73 sqM); Albumin 3.2 g/dL (3.5-5.0); Alkaline Phosphatase 75 U/L (38-126); Anion Gap 6 mmol/L; Blood Urea Nitrogen 8 mg/dL (9-20); Calcium 8.3 mg/dL (8.4-10.2); Carbon Dioxide 18 mmol/L (22-30); Chloride 112 mmol/L (98-107); Glucose 154 mg/dL (74-99); MCV 88.3 fL (80.0-100.0); Magnesium 1.7 mg/dL (1.6-2.3); Non-African American GFR(CKD) >90 (>60 ml/min/1.73 sqM); Phosphorus 1.8 mg/dL (2.5-4.5); Potassium 3.7 mmol/L (3.5-5.1); Sodium 136 mmol/L (137-145); Total Bilirubin 0.3 mg/dL (0.2-1.3); Total Protein 5.5 g/dL (6.3-8.2)
[2020-05-11 06:03] LABS: Glucose,Whole Blood 134 mg/dL (75-99)
[2020-05-11 07:00] LABS: Glucose,Whole Blood 142 mg/dL (75-99)
[2020-05-11] MEDS: INSULIN REGULAR 100 UNIT in SODIUM CHLORIDE 0.9% 100 ML IV SCH (07:38)
[2020-05-11] MEDS: SODIUM PHOSPHATE 10 MMOL in SODIUM CHLORIDE 0.9% 250 ML IVPB SCH ×2 (07:39→12:53)
[2020-05-11] MEDS: ONDANSETRON 4 MG/2 ML VIAL IVP PRN (07:47)
[2020-05-11 08:26] LABS: Glucose,Whole Blood 175 mg/dL (75-99)
[2020-05-11] MEDS ORDERED: SODIUM PHOSPHATE 10 MMOL in SODIUM CHLORIDE 0.9% 250 ML IVPB SCH (08:45)
[2020-05-11 09:54] LABS: Glucose,Whole Blood 201 mg/dL (75-99)
[2020-05-11] MEDS ORDERED: PROCHLORPERAZINE INJ 10 MG/2 ML VIAL IVP STA (09:57)
[2020-05-11] MEDS: INSULIN DETEMIR (LEVEMIR) 100 UNIT/ML SYR SQ SCH (10:44)
[2020-05-11 11:02] LABS: Glucose,Whole Blood 231 mg/dL (75-99)
[2020-05-11 11:50] LABS: African American GFR (CKD) >90 (>60 ml/min/1.73 sqM); Anion Gap 16 mmol/L; Blood Urea Nitrogen 8 mg/dL (9-20); Calcium 8.3 mg/dL (8.4-10.2); Carbon Dioxide 14 mmol/L (22-30); Chloride 106 mmol/L (98-107); Glucose 253 mg/dL (74-99); Non-African American GFR(CKD) >90 (>60 ml/min/1.73 sqM); Potassium 3.8 mmol/L (3.5-5.1); Sodium 136 mmol/L (137-145)
[2020-05-11 11:57] LABS: Glucose,Whole Blood 227 mg/dL (75-99)
[2020-05-11 12:55] VITALS: BMI 16.2
[2020-05-11] MEDS: INSULIN ASPART (NovoLOG) 100 UNIT/ML VIAL SQ SCH ×5 (13:03→21:16)
--- NOTE | 2020-05-11 14:38 | P.PN ---
Subjective Progress Note Date: 05/11/20 (abundio charting seen at 0915) Principal diagnosis: nausea and confusion Patient is a 24 yo CM with DM 1 with non complience and hx of multiple DKA episodes in the past who presented to the emergency department with complaints of weakness and respiratory distress. He was found to have DKA with a pH of 6.8. On arrival his HR was 112 an RR 35. Laboratory analysis showed white blood cell count 38.1, platelets 546, lactic acid 5.2. The remainder of his blood work was consistent with severe DKA and a bicarb of less than 5. Urinalysis was negative. Coated was negative. Chest x-ray demonstrated prior nodule and no signs of pneumonia or pleural effusion. He was started on IV fluids and insulin drip by the emergency department. He required bicarb gtt for 2 hours and rpeat ABD showed PH of 7, and repeat BMP showed detectable bicarb. He had a very rapid correction in his gluocse and need D5 0.45 started so that insulin gtt was continued. He was transitioned off insulin gtt and D5 solution on the morning of 05/11. Patient seen and examined at bedside. He is tired nauseated and not wanting to eat. He denies belly pain, shortness of breath, and chest pain. General: ill appearing, mild distress, appears at stated age Derm: warm, dry Head: atraumatic, normocephalic, symmetric Eyes: EOMI, no lid lag, anicteric sclera Mouth: no lip lesion, mucus membranes dry Cardiovascular: S1S2 reg, no murmur, positive posterior tibial pulse bilateral, Lungs: CTA bilateral, no rhonchi, no rales , no accessory muscle use Abdominal: soft, nontender to palpation, no guarding, no appreciable organomegaly Ext: no gross muscle atrophy, no edema, no contractures Neuro: CN II-XI grossly intact, no focal neuro deficits Psych: Alert, oriented, appropriate affect Severe DKA with a pH of less than 6.9 on arrival, DM 1 - Critical care has written transfer orders. Therefore will stop insulin gtt and D5 0.45 infusion. - Patient will need to be watched closely as he is having nausea and not able to have oral adequate intake. - Start Levemir 10 untis not and at night, SSI, and fixed dose. - Continue q1 hours accucheck X 3 and then transition to ACHS and 2 am - check A1C - High risk for recurrence of anion gap. Leukocytosis - suspect reactive - CXR without infectious process, Ua negative - lipase normal - repeat CBC in AM Homelessness - Social work thrombocytosis, resolved SHANTEL due to dehydration, resolved Hyperkalemia, resolved Lactic acidosis, resolved DVT prophylaxis: SCDs Discussed with: Patient, nursing, ACRN Anticipated discharge: 1-[address]: home A total of 35 minutes was spent on the care of this complex patient more than 50% of the time was spent in counseling and care coordination. Objective - Vital Signs Vital signs: Vital Signs Temp 98.9 F 05/11/20 08:50 Pulse 98 05/11/20 08:50 Resp 18 05/11/20 08:50 BP 121/87 05/11/20 08:50 Pulse Ox 98 05/11/20 08:50 Intake & Output 05/10/20 05/11/20 05/11/20 18:59 06:59 18:59 Intake Total 30.604 27.067 4.833 Output Total 1999 3375 Balance -1969.396 -3347.933 4.833 Weight 54.431 kg 54.431 kg Intake: Intake, IV Titration 30.604 27.067 4.833 Amount Insulin Regular 100 unit 30.604 27.067 4.833 In Sodium Chloride 0.9% 100 ml @ 0.1 UNITS/KG/HR 5.498 mls/hr IV .[id number] [facility] Rx#:[id number] Output: Urine 1999 3375 - Labs CBC & Chem 7: 05/11/20 05:22 05/11/20 11:21 Labs: Abnormal Lab Results - Last 24 Hours (Table) 05/10/20 05/10/20 05/10/20 Range/Units 14:40 15:45 16:42 WBC (3.8-10.6) k/uL RBC (4.30-5.90) m/uL Hct (39.0-53.0) % Sodium (137-145) mmol/L Chloride (98-107) mmol/L Carbon Dioxide (22-30) mmol/L BUN (9-20) mg/dL Creatinine (0.66-1.25) mg/dL Glucose (74-99) mg/dL POC Glucose (mg/dL) 298 H 235 H 210 H (75-99) mg/dL Calcium (8.4-10.2) mg/dL Phosphorus (2.5-4.5) mg/dL AST (17-59) U/L Total Protein (6.3-8.2) g/dL Albumin (3.5-5.0) g/dL 05/10/20 05/10/20 05/10/20 Range/Units 17:17 17:47 18:43 WBC (3.8-10.6) k/uL RBC (4.30-5.90) m/uL Hct (39.0-53.0) % Sodium 135 L (137-145) mmol/L Chloride 110 H (98-107) mmol/L Carbon Dioxide 9 L* (22-30) mmol/L BUN (9-20) mg/dL Creatinine (0.66-1.25) mg/dL Glucose 217 H (74-99) mg/dL POC Glucose (mg/dL) 208 H 194 H (75-99) mg/dL Calcium (8.4-10.2) mg/dL Phosphorus 1.5 L (2.5-4.5) mg/dL AST (17-59) U/L Total Protein (6.3-8.2) g/dL Albumin (3.5-5.0) g/dL 05/10/20 05/10/20 05/10/20 Range/Units 19:40 20:39 20:55 WBC (3.8-10.6) k/uL RBC (4.30-5.90) m/uL Hct (39.0-53.0) % Sodium 134 L (137-145) mmol/L Chloride 110 H (98-107) mmol/L Carbon Dioxide 13 L (22-30) mmol/L BUN (9-20) mg/dL Creatinine 0.65 L (0.66-1.25) mg/dL Glucose 196 H (74-99) mg/dL POC Glucose (mg/dL) 172 H 194 H (75-99) mg/dL Calcium (8.4-10.2) mg/dL Phosphorus (2.5-4.5) mg/dL AST (17-59) U/L Total Protein (6.3-8.2) g/dL Albumin (3.5-5.0) g/dL 05/10/20 05/10/20 05/10/20 Range/Units 21:40 22:34 23:41 WBC (3.8-10.6) k/uL RBC (4.30-5.90) m/uL Hct (39.0-53.0) % Sodium (137-145) mmol/L Chloride (98-107) mmol/L Carbon Dioxide (22-30) mmol/L BUN (9-20) mg/dL Creatinine (0.66-1.25) mg/dL Glucose (74-99) mg/dL POC Glucose (mg/dL) 188 H 194 H 195 H (75-99) mg/dL Calcium (8.4-10.2) mg/dL Phosphorus (2.5-4.5) mg/dL AST (17-59) U/L Total Protein (6.3-8.2) g/dL Albumin (3.5-5.0) g/dL 05/11/20 05/11/20 05/11/20 Range/Units 00:45 01:07 01:40 WBC (3.8-10.6) k/uL RBC (4.30-5.90) m/uL Hct (39.0-53.0) % Sodium 135 L (137-145) mmol/L Chloride 111 H (98-107) mmol/L Carbon Dioxide 15 L (22-30) mmol/L BUN (9-20) mg/dL Creatinine 0.57 L (0.66-1.25) mg/dL Glucose 204 H (74-99) mg/dL POC Glucose (mg/dL) 213 H 163 H (75-99) mg/dL Calcium 8.1 L (8.4-10.2) mg/dL Phosphorus (2.5-4.5) mg/dL AST (17-59) U/L Total Protein (6.3-8.2) g/dL Albumin (3.5-5.0) g/dL 05/11/20 05/11/20 05/11/20 Range/Units 02:57 04:11 05:14 WBC (3.8-10.6) k/uL RBC (4.30-5.90) m/uL Hct (39.0-53.0) % Sodium (137-145) mmol/L Chloride (98-107) mmol/L Carbon Dioxide (22-30) mmol/L BUN (9-20) mg/dL Creatinine (0.66-1.25) mg/dL Glucose (74-99) mg/dL POC Glucose (mg/dL) 178 H 168 H 154 H (75-99) mg/dL Calcium (8.4-10.2) mg/dL Phosphorus (2.5-4.5) mg/dL AST (17-59) U/L Total Protein (6.3-8.2) g/dL Albumin (3.5-5.0) g/dL 05/11/20 05/11/20 05/11/20 Range/Units 05:22 05:22 06:01 WBC 15.8 H (3.8-10.6) k/uL RBC 4.13 L (4.30-5.90) m/uL Hct 36.5 L (39.0-53.0) % Sodium 136 L (137-145) mmol/L Chloride 112 H (98-107) mmol/L Carbon Dioxide 18 L (22-30) mmol/L BUN 8 L (9-20) mg/dL Creatinine 0.52 L (0.66-1.25) mg/dL Glucose 154 H (74-99) mg/dL POC Glucose (mg/dL) 134 H (75-99) mg/dL Calcium 8.3 L (8.4-10.2) mg/dL Phosphorus 1.8 L (2.5-4.5) mg/dL AST 13 L (17-59) U/L Total Protein 5.5 L (6.3-8.2) g/dL Albumin 3.2 L (3.5-5.0) g/dL 05/11/20 05/11/20 05/11/20 Range/Units 06:59 08:24 09:53 WBC (3.8-10.6) k/uL RBC (4.30-5.90) m/uL Hct (39.0-53.0) % Sodium (137-145) mmol/L Chloride (98-107) mmol/L Carbon Dioxide (22-30) mmol/L BUN (9-20) mg/dL Creatinine (0.66-1.25) mg/dL Glucose (74-99) mg/dL POC Glucose (mg/dL) 142 H 175 H 201 H (75-99) mg/dL Calcium (8.4-10.2) mg/dL Phosphorus (2.5-4.5) mg/dL AST (17-59) U/L Total Protein (6.3-8.2) g/dL Albumin (3.5-5.0) g/dL 05/11/20 05/11/20 05/11/20 Range/Units 10:59 11:21 11:54 WBC (3.8-10.6) k/uL RBC (4.30-5.90) m/uL Hct (39.0-53.0) % Sodium 136 L (137-145) mmol/L Chloride (98-107) mmol/L Carbon Dioxide 14 L (22-30) mmol/L BUN 8 L (9-20) mg/dL Creatinine 0.50 L (0.66-1.25) mg/dL Glucose 253 H (74-99) mg/dL POC Glucose (mg/dL) 231 H 227 H (75-99) mg/dL Calcium 8.3 L (8.4-10.2) mg/dL Phosphorus (2.5-4.5) mg/dL AST (17-59) U/L Total Protein (6.3-8.2) g/dL Albumin (3.5-5.0) g/dL
[2020-05-11 15:20] LABS: Glucose,Whole Blood 199 mg/dL (75-99)
[2020-05-11] MEDS: SODIUM CHLORIDE 0.9% 1,000 ML IV SCH ×2 (15:33→22:30)
[2020-05-11 16:57] LABS: Glucose,Whole Blood 202 mg/dL (75-99)
--- NOTE | 2020-05-11 20:09 | HP ---
HISTORY AND PHYSICAL DATE OF SERVICE: 05/10/2020 CHIEF COMPLAINT: DKA. HISTORY OF PRESENT ILLNESS: This gentleman was admitted once again with DKA. He is an extremely noncompliant type 1 insulin-dependent diabetic with extreme difficulties with depression. In the emergency room his blood sugar was markedly elevated along with his BUN and creatinine. He had a white count of 38,000 and a CO2 less than 5. BUN was 21 with creatinine 1.72 and GFR of 55. Lactic acid was 5.2 and he had positive acetone. There were hyaline casts in the urine. REVIEW OF SYSTEMS: Otherwise unremarkable. He was somewhat lethargic. He denies fever, chills, cough, hemoptysis, etc. Past medical history, family history, and personal and social histories are unchanged from his recent admitting and discharge summaries. PHYSICAL EXAMINATION: Blood pressure is 103/61, temperature 98, pulse 60, respirations were 16. In general he appeared to be dehydrated and lethargic. Head, ears, eyes, nose, mouth and throat were normal except for his dry mucous membranes. Chest was clear. Cardiac exam demonstrated tachycardia. The abdomen was flat and soft. Extremities were normal. Neurologically he is intact. IMPRESSION: 1. Diabetic ketoacidosis. 2. Acidosis. 3. Dehydration. 4. Prerenal azotemia. PLAN: 1. IV fluids. 2. DKA protocol. 3. Consider psych evaluation once again. MMODL / TRAMN: [id number] /
--- NOTE | 2020-05-11 20:18 | PN ---
PROGRESS NOTE DATE OF SERVICE: 05/11/2020 CHIEF COMPLAINT: DKA. HISTORY OF PRESENT ILLNESS: This gentleman is improved. Hydration is improved. Renal function has returned to normal. PHYSICAL EXAMINATION: His chest is clear. Cardiac exam is normal. Abdomen is soft, nontender and flat. IMPRESSION: Diabetic ketoacidosis. PLAN: Continue stabilize and rehydrate, after which he can be discharged. MMODL / IJN: [id number] /
[2020-05-11] MEDS ORDERED: INSULIN DETEMIR (LEVEMIR) 100 UNIT/ML SYR SQ SCH (21:00)
[2020-05-11 21:08] LABS: Glucose,Whole Blood 252 mg/dL (75-99)
[2020-05-12 02:05] LABS: Glucose,Whole Blood 177 mg/dL (75-99)
[2020-05-12 02:50] VITALS: TEMP 98.3
[2020-05-12] MEDS: SODIUM CHLORIDE 0.9% 1,000 ML IV SCH ×2 (05:15→10:34)
[2020-05-12 06:27] LABS: HCT 33.2 % (39.0-53.0); MCH 31.6 pg (25.0-35.0); MCHC 36.1 g/dL (31.0-37.0); MCV 87.7 fL (80.0-100.0); Mean Platelet Volume 6.6; Platelet Count 223 k/uL (150-450); RBC 3.78 m/uL (4.30-5.90); RDW 13.2 % (11.5-15.5); WBC 8.4 k/uL (3.8-10.6)
[2020-05-12 06:59] LABS: Glucose,Whole Blood 122 mg/dL (75-99)
[2020-05-12] MEDS ORDERED: INSULIN DETEMIR (LEVEMIR) 100 UNIT/ML SYR SQ SCH (07:00)
[2020-05-12] MEDS: INSULIN ASPART (NovoLOG) 100 UNIT/ML VIAL SQ SCH ×2 (07:21→07:38)
[2020-05-12] MEDS: INSULIN DETEMIR (LEVEMIR) 100 UNIT/ML SYR SQ SCH (07:55)
[2020-05-12 08:58] VITALS: BP 116/81; PULSE 80; RESP 16
[2020-05-12 09:33] LABS: African American GFR (CKD) 165.4 (60.0-200.0); Blood Urea Nitrogen <5.0 mg/dL (9.0-27.0); Calcium 8.2 mg/dL (8.7-10.3); Carbon Dioxide 26.6 mmol/L (21.6-31.8); Chloride 104 mmol/L (96-109); Glucose 132 mg/dL (70-110); Magnesium 1.7 mg/dL (1.5-2.4); Non-African American GFR(CKD) 142.7 (60.0-200.0); Phosphorus 2.5 mg/dL (2.4-5.1); Potassium 3.1 mmol/L (3.5-5.5); Sodium 137 mmol/L (135-145)
[2020-05-12] MEDS ORDERED: Potassium Replacement Protocol 1 EACH MISC MISCELLANE PRN (10:03)
[2020-05-12] MEDS: POTASSIUM CHLORIDE ER 20 MEQ TAB.ER PO SCH (10:31)
--- NOTE | 2020-05-12 14:44 | P.DS ---
Providers Date of admission: 05/10/20 09:29 Expected date of discharge: 05/12/20 (delayed charting seen at 0900) Attending physician: Ingrid Greene DO Consults: 05/10/20 09:30 Consult Physician Urgent Consulting Provider: Jenna Montoya Consult Reason/Comments: DKA Do you want consulting provider notified?: Already Contacted Primary care physician: Brown Valenzuela Hospital Course: Discharge Diagnosis: Severe DKA with a pH of less than 6.9 on arrival, DM 1 Leukocytosis Homelessness thrombocytosis, resolved SHANTEL due to dehydration, resolved Hyperkalemia, resolved Lactic acidosis, resolved Hospital Course: Patient is a 24 yo CM with DM 1 with non complience and hx of multiple DKA episodes in the past who presented to the emergency department with complaints of weakness and respiratory distress. He was found to have DKA with a pH of 6.8. On arrival his HR was 112 an RR 35. Laboratory analysis showed white blood cell count 38.1, platelets 546, lactic acid 5.2. The remainder of his blood work was consistent with severe DKA and a bicarb of less than 5. Urinalysis was negative. Coated was negative. Chest x-ray demonstrated prior nodule and no signs of pneumonia or pleural effusion. He was started on IV fluids and insulin drip by the emergency department. He required bicarb gtt for 2 hours and repeat ABD showed PH of 7, and repeat BMP showed detectable bicarb. He had a very rapid correction in his glucose and need D5 0.45 started so that insulin gtt was continued. He was transitioned off insulin gtt and D5 solution on the morning of 05/11. His anion gap did the open slightly. He was started on short and long- acting insulin. By the morning of 05/12 his anion gap remained closed. His nausea and vomiting have resolved. He was feeling much better and he was determined stable for discharge home. We had a long discussion on the importance of continuing to follow with Dr. Corley his primary care physician. We discussed the importance of not running out of insulin. He does need his short and long-acting refilled. He was given prescriptions for Lantus as well as Admalog in the pen form as well as the needles for injection. We discussed that should he continue to control his diabetes he'll be at risk for dialysis, peripheral vascular disease resulting in amputation, and blindness. Patient understands. He reports that he has all of his testing supplies to monitor her sugars. He states that he had been taking Lantus 20 units at home and short acting 10 units with each meal. We will resume this algorithm. Patient seen and examined at bedside. Denies chest pain, shortness breath, nausea, vomiting, diarrhea. Vital signs reviewed and stable. General: non toxic, no distress, appears at stated age Derm: warm, dry Head: atraumatic, normocephalic, symmetric Eyes: EOMI, no lid lag, anicteric sclera Mouth: no lip lesion, mucus membranes moist Cardiovascular: S1S2 reg, no murmur, positive posterior tibial pulse bilateral, Lungs: CTA bilateral, no rhonchi, no rales , no accessory muscle use Abdominal: soft, nontender to palpation, no guarding, no appreciable organomegaly Ext: no gross muscle atrophy, no edema, no contractures Neuro: CN II-XI grossly intact, no focal neuro deficits Psych: Alert, oriented, appropriate affect A total of 35 minutes of time were spent preparing this complex discharge summary . Patient Condition at Discharge: Fair Plan - Discharge Summary New Discharge Prescriptions: New Insulin Lispro [Admelog Solostar] 10 units SQ AC-TID #1 box Insulin Glargine,Hum.rec.anlog [Basaglar Kwikpen U-100] 20 unit SQ AC-BRKFST #1 box Continue traZODone HCL [Desyrel] 200 mg PO HS 30 Days tab Gabapentin [Neurontin] 600 mg PO BID 30 Days cap Discontinued Insulin Lispro [Admelog] 10 units SQ AC-TID Insulin Lispro [Admelog] See Protocol SQ ACHS Insulin Glargine,Hum.rec.anlog [Lantus Solostar] 40 unit SQ DAILY Discharge Medication List Gabapentin [Neurontin] 600 mg PO BID 30 Days cap 09/01/19 [Rx] traZODone HCL [Desyrel] 200 mg PO HS 30 Days tab 09/01/19 [Rx] Insulin Glargine,Hum.rec.anlog [Basaglar Kwikpen U-100] 20 unit SQ AC-BRKFST #1 box 05/12/20 [Rx] Insulin Lispro [Admelog Solostar] 10 units SQ AC-TID #1 box 05/12/20 [Rx] Follow up Appointment(s)/Referral(s): Brown Valenzuela MD [Primary Care Provider] - 05/13/20 8:10 am () Patient Instructions/Handouts: Diabetic Ketoacidosis (DC) Activity/Diet/Wound Care/Special Instructions: Activity: as tolerated Diet: Carb consistent Special Instructions: Check blood sugar three times daily Discharge Disposition: HOME SELF-CARE
[2020-05-12 15:04] LABS: Hemoglobin A1C 11.9 % (4.0-6.0)
--- NOTE | 2020-05-12 19:14 | PN ---
PROGRESS NOTE CHIEF COMPLAINT: DKA. HISTORY OF PRESENT ILLNESS: This gentleman is doing fairly well. He denies significant depression at this time on this admission. This gentleman clearly is unable to manage his disease and has psychosocial issues that need to be brought under control. PHYSICAL EXAMINATION: Chest is clear. Cardiac exam is normal. Abdomen is soft, nontender. IMPRESSION: 1. Diabetic ketoacidosis. 2. Type 1 poorly-controlled diabetes mellitus. 3. Depression. PLAN: He can go home anytime. MMODL / IJN: [id number] /
== END 2020-05-12 10:48 | disposition home or self-care (01) | DRG 638 ==
LOC: EC 08:47 → 2SICU 09:29 → 5NMEDONC 05-11 08:00
PROVIDERS: ADMIT Internal Medicine; ATTEND Internal Medicine
DX: E10.10 Type 1 diabetes mellitus with ketoacidosis without coma (principal); N17.9 Acute kidney failure, unspecified; F32.9 Major depressive disorder, single episode, unspecified; E87.5 Hyperkalemia; E86.0 Dehydration; Z20.828 Contact with and (suspected) exposure to other viral communicable diseases; F41.9 Anxiety disorder, unspecified; J44.9 Chronic obstructive pulmonary disease, unspecified; E10.40 Type 1 diabetes mellitus with diabetic neuropathy, unspecified; D72.829 Elevated white blood cell count, unspecified; Z79.4 Long term (current) use of insulin; Z79.899 Other long term (current) drug therapy; Z82.49 Family history of ischemic heart disease and other diseases of the circulatory system; Z87.891 Personal history of nicotine dependence; Z91.14 Patient's other noncompliance with medication regimen; Z91.19 Patient's noncompliance with other medical treatment and regimen; Z59.0 Homelessness
CPT/HCPCS: 36415; 36600; 51701; 71045; 80048; 80051; 80053; 81001; 82009; 82565; 82803; 82805; 82947; 83036; 83605; 83690; 83735; 84100; 84520; 85025; 85027; 85610; 85730; 87635; 93005; 96361; 96365; 96366; 96368; 96375; 96376; 99291

== ENCOUNTER 2020-05-16 15:06 | Observation (INO) | payer OTHER ==
[2020-05-16 15:24] LABS: Glucose,Whole Blood 284 mg/dL (75-99)
[2020-05-16] MEDS ORDERED: SODIUM CHLORIDE 0.9% 1,000 ML IV STA (15:44)
[2020-05-16 16:16] LABS: Basophils % (A) 1 %; Eosinophils # (A) 0.1 k/uL (0-0.7); Eosinophils % (A) 1 %; HCT 48.9 % (39.0-53.0); Lymphocytes # (A) 2.3 k/uL (1.0-4.8); Lymphocytes % (A) 27 %; MCH 31.4 pg (25.0-35.0); MCHC 34.1 g/dL (31.0-37.0); MCV 91.8 fL (80.0-100.0); Mean Platelet Volume 7.1; Monocytes # (A) 0.3 k/uL (0-1.0); Monocytes % (A) 3 %; Neutrophils # (A) 5.8 k/uL (1.3-7.7); Neutrophils % (A) 67 %; Platelet Count 402 k/uL (150-450); RBC 5.32 m/uL (4.30-5.90); RDW 13.3 % (11.5-15.5); WBC 8.7 k/uL (3.8-10.6)
[2020-05-16 16:25] LABS: HGB 16.7 gm/dL (13.0-17.5)
[2020-05-16 16:28] LABS: ALT 13 U/L (4-49); AST 13 U/L (17-59); African American GFR (CKD) >90 (>60 ml/min/1.73 sqM); Albumin 5.2 g/dL (3.5-5.0); Alkaline Phosphatase 120 U/L (38-126); Anion Gap 24 mmol/L; Blood Urea Nitrogen 14 mg/dL (9-20); Calcium 10.2 mg/dL (8.4-10.2); Carbon Dioxide 11 mmol/L (22-30); Chloride 103 mmol/L (98-107); Glucose 281 mg/dL (74-99); Non-African American GFR(CKD) >90 (>60 ml/min/1.73 sqM); Potassium 4.7 mmol/L (3.5-5.1); Sodium 138 mmol/L (137-145); Total Bilirubin 0.8 mg/dL (0.2-1.3); Total Protein 8.1 g/dL (6.3-8.2)
[2020-05-16 16:35] LABS: VBG PH 7.22 (7.31-7.41)
--- NOTE | 2020-05-16 16:40 | ED ---
General Adult HPI - General Source: patient Mode of arrival: wheelchair Limitations: no limitations <Bella Ventura - Last Filed: 05/16/20 17:13> <Deana Shin - Last Filed: 05/28/20 00:27> - General Chief complaint: Recheck/Abnormal Lab/Rx Stated complaint: Vomititng/Fever Time Seen by Provider: 05/16/20 15:38 - History of Present Illness Initial comments: Patient is a 24-year-old male, history of type 1 diabetes, DKA, presenting to emergency Department with complaints of nausea, vomiting and body aches for the past few days. Patient states he has not used any insulin or checking his sugars since he was released from the hospital last time. Patient denies any fevers, no shortness of breath, no chest pain, no abdominal pain, no cough or headaches. Patient states he is not nauseous at this time but has not been able to eat or drink over the past few days. Patient states "since I haven't been ea ting or drinking and didn't feel like he needed any insulin." Patient has no further complaints at this time. Upon arrival to the ER, he is tachycardia at 140, rest of vitals are normal. (Bella Ventura) - Related Data Home Medications Medication Instructions Recorded Confirmed Gabapentin [Neurontin] 600 mg PO BID 05/16/20 05/16/20 Previous Rx's Medication Instructions Recorded traZODone HCL [Desyrel] 200 mg PO HS 30 Days tab 09/01/19 Insulin Glargine,Hum.rec.anlog 20 unit SQ AC-BRKFST #1 box 05/12/20 [Basaglar Kwikpen U-100] Insulin Lispro [Admelog Solostar] 10 units SQ AC-TID #1 box 05/12/20 Allergies Allergy/AdvReac Type Severity Reaction Status Date / Time No Known Allergies Allergy Verified 05/16/20 16:00 Review of Systems ROS Other: All systems not noted in ROS Statement are negative. <Bella Ventura - Last Filed: 05/16/20 17:13> ROS Other: All systems not noted in ROS Statement are negative. <Deana Shin - Last Filed: 05/28/20 00:27> ROS Statement: Those systems with pertinent positive or pertinent negative responses have been documented in the HPI. Past Medical History Past Medical History: Asthma, Diabetes Mellitus, Skin Disorder Additional Past Medical History / Comment(s): IDDM type I, neuropathy bilateral feet, DKA, eczema. History of multiple psychiatric hospitalizations or suicide attempts. History of Any Multi-Drug Resistant Organisms: None Reported Past Surgical History: Adenoidectomy Additional Past Surgical History / Comment(s): 2002 Past Anesthesia/Blood Transfusion Reactions: No Reported Reaction Past Psychological History: Anxiety, Depression Smoking Status: Former smoker Past Alcohol Use History: Occasional Past Drug Use History: Marijuana - Past Family History Mother Family Medical History: CVA/TIA Father Family Medical History: Hyperlipidemia, Hypertension Additional Family Medical History / Comment(s): . <Bella Ventura - Last Filed: 05/16/20 17:13> General Exam Limitations: no limitations <Bella Ventura - Last Filed: 05/16/20 17:13> - General Exam Comments Initial Comments: GENERAL: Patient is well-developed and well-nourished. Patient is nontoxic, looks fatigued, in mild distress. HEAD: Atraumatic, normocephalic. EYES: Pupils equal round and reactive to light, extraocular movements intact, sclera anicteric, conjunctiva are normal. Eyelids were unremarkable. ENT: TMs normal, nares patent, oropharynx clear without exudates. Moist mucous membranes. NECK: Normal range of motion, supple without lymphadenopathy or JVD. LUNGS: Unlabored respirations. Breath sounds clear to auscultation bilaterally and equal. No wheezes rales or rhonchi. HEART: Tachycardia rate and rhythm without murmurs, rubs or gallops. ABDOMEN: Soft, nontender, normoactive bowel sounds. No guarding, no rebound. No masses appreciated. : Deferred MUSCULOSKELETAL: Normal extremities with adequate strength and normal range of motion, no pitting or edema. No clubbing or cyanosis. NEUROLOGICAL: Patient is alert and oriented x 3. Motor and sensory are also intact. Cranial nerves II through XII grossly intact. Symmetrical smile. Normal speech, normal gait. PSYCH: Normal mood, normal affect. SKIN: Warm, Dry, normal turgor, no rashes or lesions noted. (Bella Ventura) Course Vital Signs 05/16/20 05/16/20 15:18 17:29 Temperature 98.2 F Pulse Rate 141 H 110 H Respiratory 18 18 Rate Blood Pressure 110/76 117/79 O2 Sat by Pulse 100 100 Oximetry Medical Decision Making - Lab Data Result diagrams: 05/16/20 15:46 05/16/20 15:46 <Bella Ventura - Last Filed: 05/16/20 17:13> - Lab Data Result diagrams: 05/18/20 13:47 05/18/20 13:47 <Deana Shin - Last Filed: 05/28/20 00:27> - Medical Decision Making Patient is a 24-year-old male here for nausea vomiting, dehydration to increased over the past few days. He is type I diabetic, here multiple times for DKA. Her rate upon arrival was 140, rest of vitals are normal. VBG shows pH 7.22, bicarb 11, gap is 24, lactic acid is 1.6, acetone is positive, rapid Covid is negative. Glucose is 281 at this time. Patient will be admitted, started on insulin drop and fluids. Patient accepted by Dr. Valenzuela, case discussed with Dr. Shin. (Bella Ventura) I was available for consultation in the emergency department. The history and physical exam were done by the midlevel provider. I was consulted for this patients care. I reviewed the case with the midlevel provider and based on their presentation of the patient, I agree with the assessment, medical decision making and plan of care as documented. Chart was dictated using [employer]an[employer] dictation software. Attempts were made to correct any dictation errors however some typographical errors may persist. Patient was seen during a national state of emergency due to the Covid-19 pandemic. (Deana Shin) - Lab Data Lab Results 05/16/20 05/16/20 05/16/20 Range/Units 15:22 15:46 15:46 WBC 8.7 (3.8-10.6) k/uL RBC 5.32 (4.30-5.90) m/uL Hgb 16.7 D (13.0-17.5) gm/dL Hct 48.9 (39.0-53.0) % MCV 91.8 (80.0-100.0) fL MCH 31.4 (25.0-35.0) pg MCHC 34.1 (31.0-37.0) g/dL RDW 13.3 (11.5-15.5) % Plt Count 402 (150-450) k/uL MPV 7.1 Neutrophils % 67 % Lymphocytes % 27 % Monocytes % 3 % Eosinophils % 1 % Basophils % 1 % Neutrophils # 5.8 (1.3-7.7) k/uL Lymphocytes # 2.3 (1.0-4.8) k/uL Monocytes # 0.3 (0-1.0) k/uL Eosinophils # 0.1 (0-0.7) k/uL Basophils # 0.0 (0-0.2) k/uL VBG pH (7.31-7.41) VBG pCO2 (37-51) mmHg VBG HCO3 (24-28) mmol/L Sodium 138 (137-145) mmol/L Potassium 4.7 (3.5-5.1) mmol/L Chloride 103 (98-107) mmol/L Carbon Dioxide 11 L (22-30) mmol/L Anion Gap 24 mmol/L BUN 14 (9-20) mg/dL Creatinine 0.62 L (0.66-1.25) mg/dL Est GFR (CKD-EPI)AfAm >90 (>60 ml/min/1.73 sqM) Est GFR (CKD-EPI)NonAf >90 (>60 ml/min/1.73 sqM) Glucose 281 H (74-99) mg/dL POC Glucose (mg/dL) 284 H (75-99) mg/dL POC Glu El Teacher Dinorah Sears Plasma Lactic Acid Len (0.7-2.0) mmol/L Calcium 10.2 (8.4-10.2) mg/dL Magnesium 2.0 (1.6-2.3) mg/dL Total Bilirubin 0.8 (0.2-1.3) mg/dL AST 13 L (17-59) U/L ALT 13 (4-49) U/L Alkaline Phosphatase 120 (38-126) U/L Total Protein 8.1 (6.3-8.2) g/dL Albumin 5.2 H (3.5-5.0) g/dL Acetone, Qual Positive (Negative) Coronavirus (PCR) (Not Detectd) 12/05/16/20 05/16/20 Range/Units 15:46 16:25 16:25 WBC (3.8-10.6) k/uL RBC (4.30-5.90) m/uL Hgb (13.0-17.5) gm/dL Hct (39.0-53.0) % MCV (80.0-100.0) fL MCH (25.0-35.0) pg MCHC (31.0-37.0) g/dL RDW (11.5-15.5) % Plt Count (150-450) k/uL MPV Neutrophils % % Lymphocytes % % Monocytes % % Eosinophils % % Basophils % % Neutrophils # (1.3-7.7) k/uL Lymphocytes # (1.0-4.8) k/uL Monocytes # (0-1.0) k/uL Eosinophils # (0-0.7) k/uL Basophils # (0-0.2) k/uL VBG pH 7.22 L (7.31-7.41) VBG pCO2 28 L (37-51) mmHg VBG HCO3 11 L (24-28) mmol/L Sodium (137-145) mmol/L Potassium (3.5-5.1) mmol/L Chloride (98-107) mmol/L Carbon Dioxide (22-30) mmol/L Anion Gap mmol/L BUN (9-20) mg/dL Creatinine (0.66-1.25) mg/dL Est GFR (CKD-EPI)AfAm (>60 ml/min/1.73 sqM) Est GFR (CKD-EPI)NonAf (>60 ml/min/1.73 sqM) Glucose (74-99) mg/dL POC Glucose (mg/dL) (75-99) mg/dL POC Glu El Teacher ID Plasma Lactic Acid Len 1.6 (0.7-2.0) mmol/L Calcium (8.4-10.2) mg/dL Magnesium (1.6-2.3) mg/dL Total Bilirubin (0.2-1.3) mg/dL AST (17-59) U/L ALT (4-49) U/L Alkaline Phosphatase (38-126) U/L Total Protein (6.3-8.2) g/dL Albumin (3.5-5.0) g/dL Acetone, Qual (Negative) Coronavirus (PCR) Not Detected (Not Detectd) Disposition Time of Disposition: 17:09 Decision Date: 05/16/20 Decision Time: 17:09 <Bella Ventura - Last Filed: 05/16/20 17:13> <Deana Shin - Last Filed: 05/28/20 00:27> Clinical Impression: DKA (diabetic ketoacidoses), Nausea & vomiting, Dehydration Disposition: ADMITTED IP TO THIS HOSP Condition: Good
[2020-05-16] MEDS ORDERED: DEXTROSE 5%-0.9% NACL 1,000 ML IV SCH (17:15)
[2020-05-16] MEDS ORDERED: INSULIN REGULAR 100 UNIT in SODIUM CHLORIDE 0.9% 100 ML IV SCH (17:15)
[2020-05-16] MEDS ORDERED: SODIUM CHLORIDE 0.9% 1,000 ML IV SCH (17:15)
[2020-05-16 17:56] LABS: Glucose,Whole Blood 246 mg/dL (75-99)
[2020-05-16 19:11] LABS: Glucose,Whole Blood 180 mg/dL (75-99)
[2020-05-16 20:07] LABS: Glucose,Whole Blood 176 mg/dL (75-99)
[2020-05-16 20:32] LABS: African American GFR (CKD) >90 (>60 ml/min/1.73 sqM); Anion Gap 14 mmol/L; Blood Urea Nitrogen 13 mg/dL (9-20); Carbon Dioxide 14 mmol/L (22-30); Chloride 107 mmol/L (98-107); Glucose 185 mg/dL (74-99); Non-African American GFR(CKD) >90 (>60 ml/min/1.73 sqM); Potassium 4.5 mmol/L (3.5-5.1); Sodium 135 mmol/L (137-145)
[2020-05-16 21:04] LABS: Glucose,Whole Blood 127 mg/dL (75-99)
[2020-05-16 22:05] LABS: Glucose,Whole Blood 118 mg/dL (75-99)
[2020-05-16 22:58] LABS: Glucose,Whole Blood 104 mg/dL (75-99)
[2020-05-16 23:25] LABS: Appearance,Urine Clear (Clear); Bilirubin,Urine Negative (Negative); Blood,Urine Negative (Negative); Color,Urine Light Yellow; Glucose,Urine (UA) 4+ (Negative); Leukocyte Esterase,Urine Negative (Negative); Nitrite,Urine Negative (Negative); PH, Urine 5.5 (5.0-8.0); Protein,Urine Trace (Negative); Specific Gravity,Urine 1.016 (1.001-1.035); Urobilinogen,Urine <2.0 mg/dL (<2.0)
[2020-05-16 23:32] LABS: Ketones,Urine 4+ (Negative)
[2020-05-17 00:06] LABS: Glucose,Whole Blood 130 mg/dL (75-99)
[2020-05-17 00:18] LABS: African American GFR (CKD) >90 (>60 ml/min/1.73 sqM); Anion Gap 9 mmol/L; Blood Urea Nitrogen 10 mg/dL (9-20); Carbon Dioxide 19 mmol/L (22-30); Chloride 106 mmol/L (98-107); Glucose 116 mg/dL (74-99); Non-African American GFR(CKD) >90 (>60 ml/min/1.73 sqM); Phosphorus 2.4 mg/dL (2.5-4.5); Potassium 3.8 mmol/L (3.5-5.1); Sodium 134 mmol/L (137-145)
[2020-05-17 00:48] LABS: Glucose,Whole Blood 161 mg/dL (75-99)
[2020-05-17 01:14] LABS: Glucose,Whole Blood 141 mg/dL (75-99)
[2020-05-17 01:51] LABS: Glucose,Whole Blood 153 mg/dL (75-99)
[2020-05-17] MEDS ORDERED: INSULIN DETEMIR (LEVEMIR) 100 UNIT/ML SYR SQ ONE (02:00)
[2020-05-17 05:26] LABS: Glucose,Whole Blood 144 mg/dL (75-99)
[2020-05-17] MEDS: ONDANSETRON 4 MG/2 ML VIAL IVP PRN ×2 (06:02→12:19)
[2020-05-17] MEDS: INSULIN ASPART (NovoLOG) 100 UNIT/ML VIAL SQ SCH ×7 (07:05→20:21)
[2020-05-17 07:27] LABS: Glucose,Whole Blood 113 mg/dL (75-99)
[2020-05-17 12:22] LABS: Glucose,Whole Blood 62 mg/dL (75-99)
[2020-05-17 13:17] LABS: Glucose,Whole Blood 76 mg/dL (75-99)
[2020-05-17] MEDS ORDERED: PROCHLORPERAZINE INJ 10 MG/2 ML VIAL IVP PRN (14:24)
[2020-05-17 15:49] LABS: Glucose,Whole Blood 94 mg/dL (75-99)
[2020-05-17 17:17] LABS: Glucose,Whole Blood 103 mg/dL (75-99)
[2020-05-17] MEDS: METOCLOPRAMIDE 5 MG/ML 2 ML VIAL IVP SCH (17:35)
--- NOTE | 2020-05-17 19:09 | HP ---
HISTORY AND PHYSICAL CHIEF COMPLAINT: Uncontrolled diabetes with DKA. HISTORY OF PRESENT ILLNESS: This is another recent admission for this 24-year-old diabetic. He has been in and out on numerous occasions over the last few weeks, months and years. He has depression and for various reasons will stop taking his insulin. This is the case this time and he came in DKA. REVIEW OF SYSTEMS: He denies seizures, change in vision or hearing, chest pain, shortness of breath, abdominal pain, diarrhea, etc. Past medical history, family history, and personal and social histories are all otherwise completely unchanged from his recent admitting and discharge summaries. PHYSICAL EXAMINATION: He seems lethargic. He is dehydrated. Blood pressure is 106/64 with a pulse of 90, respirations of 35, and he is afebrile. In general he appears to be slender, dehydrated, slightly lethargic and depressed. Head, ears, eyes, nose, mouth and throat are normal except for dry mucous membranes. Neck is supple. Chest is clear. Cardiac exam demonstrates sinus tachycardia and the abdomen is flat, soft and nontender. Extremities are normal. Neurologically he is intact. He is admitted to the hospital with the diagnoses: 1. Diabetic ketoacidosis. 2. Dehydration. 3. Depression. PLAN: 1. DKA protocol. 2. Rehydration. 3. Revisit psych consult. 4. Consider guardianship. MMODL / IJN: [id number] /
--- NOTE | 2020-05-17 19:09 | PN ---
PROGRESS NOTE DATE OF SERVICE: 05/17/2020 CHIEF COMPLAINT: DKA, depression and nausea with vomiting. HISTORY OF PRESENT ILLNESS: This gentleman started to have nausea and vomiting. Blood sugars are down nicely. PHYSICAL EXAMINATION: Chest is clear. Cardiac exam is normal. Abdomen is soft, nontender. Bowel sounds are present. He still has a very flat and depressed affect. IMPRESSION: 1. Diabetic ketoacidosis. 2. Dehydration. 3. Nausea and vomiting. 4. Depression. 5. Probable gastroparesis. PLAN: 1. Continue with IV fluids. 2. Antiemetics. 3. Reglan. 4. Consult Wheel Roller to consider guardianship. 5. Consult Psychiatry. MMODL / IJN: [id number] /
[2020-05-17 20:10] LABS: Glucose,Whole Blood 135 mg/dL (75-99)
[2020-05-17 20:51] LABS: Glucose,Whole Blood 139 mg/dL (75-99)
[2020-05-18] MEDS: METOCLOPRAMIDE 5 MG/ML 2 ML VIAL IVP SCH ×4 (00:02→17:50)
[2020-05-18] MEDS: INSULIN ASPART (NovoLOG) 100 UNIT/ML VIAL SQ SCH ×6 (09:38→17:04)
[2020-05-18 13:44] VITALS: BMI 16.2
--- NOTE | 2020-05-18 13:53 | PN ---
PROGRESS NOTE DATE OF SERVICE: 05/18/2020 CHIEF COMPLAINT: DKA and depression. HISTORY OF PRESENT ILLNESS: This gentleman is quite depressed. He is still complaining of abdominal pain and vomiting. Whenever he is examined, he professes to have tenderness in the upper abdomen. However, when auscultating the abdomen pressing down firmly with the stethoscope, it elicits no pain. He has not been seen by Psychiatry yet. PHYSICAL EXAMINATION: Chest is clear. Cardiac exam is normal. Abdomen is flat, soft. He professes to be tender in the upper abdomen. IMPRESSION: 1. Diabetic ketoacidosis. 2. Abdominal pain. 3. Vomiting. 4. Depression. PLAN: We are waiting for psychiatric evaluation as well as Senior Mechanical Designer consult. This gentleman is to the point where he should be appointed a guardian for medical incompetency. MMODL / IJN: [id number] /
[2020-05-18 14:09] LABS: Basophils % (A) 0 %; Eosinophils % (A) 1 %; HGB 14.4 gm/dL (13.0-17.5); Lymphocytes # (A) 1.5 k/uL (1.0-4.8); Lymphocytes % (A) 28 %; MCH 31.4 pg (25.0-35.0); MCHC 35.2 g/dL (31.0-37.0); MCV 89.2 fL (80.0-100.0); Mean Platelet Volume 6.4; Monocytes # (A) 0.5 k/uL (0-1.0); Monocytes % (A) 10 %; Neutrophils # (A) 3.1 k/uL (1.3-7.7); Neutrophils % (A) 59 %; Platelet Count 290 k/uL (150-450); RDW 13.3 % (11.5-15.5); WBC 5.2 k/uL (3.8-10.6)
[2020-05-18 14:19] LABS: ALT 9 U/L (4-49); AST 13 U/L (17-59); African American GFR (CKD) >90 (>60 ml/min/1.73 sqM); Albumin/Globulin Ratio 1.7; Alkaline Phosphatase 64 U/L (38-126); Anion Gap 11 mmol/L; Blood Urea Nitrogen 9 mg/dL (9-20); Calcium 9.2 mg/dL (8.4-10.2); Carbon Dioxide 27 mmol/L (22-30); Chloride 95 mmol/L (98-107); Globulin 2.4 g/dL; Glucose 241 mg/dL (74-99); Lipase 41 U/L (23-300); Non-African American GFR(CKD) >90 (>60 ml/min/1.73 sqM); Potassium 4.1 mmol/L (3.5-5.1); Sodium 133 mmol/L (137-145); Total Bilirubin 0.7 mg/dL (0.2-1.3); Total Protein 6.4 g/dL (6.3-8.2)
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
[2020-05-18 21:48] VITALS: BP 102/69; PULSE 112; RESP 18; TEMP 98
--- NOTE | 2020-05-20 17:50 | DS ---
DISCHARGE SUMMARY DATE OF ADMISSION: 05/16/2020. DISCHARGE DATE: 05/19/2020. CHIEF COMPLAINT: DKA. HISTORY OF PRESENT ILLNESS AND PHYSICAL EXAMINATION: Details of this man's history and physical can be found in the initial workup. COURSE IN THE HOSPITAL: After admission, he was placed on bedrest and started on DKA protocol. Blood sugars came down. He then started to have difficulty with nausea and vomiting. This was subsiding and he was doing fairly well and blood sugars were down when he suddenly signed himself out AGAINST MEDICAL ADVICE on the . FINAL DIAGNOSES: 1. Diabetic ketoacidosis. 2. Uncontrolled type 1 insulin-dependent diabetes mellitus. 3. Nausea and vomiting. 4. Gastroparesis. 5. Dehydration. 6. Depression. OPERATIONS: None. CONSULTATION: 1. None. He was to have been seen by elementary school social worker for possible guardianship and also by Psychiatry. He will be followed up in the office. FINAL DIAGNOSES: 1. Diabetic ketoacidosis. 2. Dehydration. 3. Type 1 insulin-dependent diabetes mellitus. 4. Dehydration. 5. Depression. 6. Medical incapacitation. MMODL / IJN: [id number] /
[2020-05-21 09:26] LABS: Glucose,Whole Blood 183 mg/dL (75-99)
[2020-05-21 09:27] LABS: Glucose,Whole Blood 167 mg/dL (75-99)
[2020-05-21 09:27] LABS: Glucose,Whole Blood 324 mg/dL (75-99)
[2020-05-21 09:27] LABS: Glucose,Whole Blood 99 mg/dL (75-99)
== END 2020-05-18 22:00 | disposition left against medical advice (07) ==
LOC: EC 15:06 → INTOOBSV 16:52 → 3SCARD 16:52 → 5NMEDONC 05-17 20:15 → UNDODISIN 05-18 22:00
PROVIDERS: ADMIT Family Medicine; ATTEND Family Medicine
DX: E10.10 Type 1 diabetes mellitus with ketoacidosis without coma (principal); Z53.29 Procedure and treatment not carried out because of patient's decision for other reasons; E10.43 Type 1 diabetes mellitus with diabetic autonomic (poly)neuropathy; K31.84 Gastroparesis; E86.0 Dehydration; F32.9 Major depressive disorder, single episode, unspecified; R00.0 Tachycardia, unspecified; J45.909 Unspecified asthma, uncomplicated; E10.42 Type 1 diabetes mellitus with diabetic polyneuropathy; L30.9 Dermatitis, unspecified; F41.9 Anxiety disorder, unspecified; T38.3X6A Underdosing of insulin and oral hypoglycemic [antidiabetic] drugs, initial encounter; T43.96XA Underdosing of unspecified psychotropic drug, initial encounter; R10.9 Unspecified abdominal pain; Z20.828 Contact with and (suspected) exposure to other viral communicable diseases; Z79.4 Long term (current) use of insulin; Z79.899 Other long term (current) drug therapy; Z73.6 Limitation of activities due to disability; Z91.5 Personal history of self-harm; Z90.89 Acquired absence of other organs; Z87.891 Personal history of nicotine dependence; Z82.3 Family history of stroke; Z83.438 Family history of other disorder of lipoprotein metabolism and other lipidemia; Z82.49 Family history of ischemic heart disease and other diseases of the circulatory system
CPT/HCPCS: 96376 ×2; 96375; 96374; 93005; 96361; 99284; 36415; 80051; 80053 ×2; 82565; 82803; 82009; 83605; 83690; 83735; 84100; 82947; 84520; 85025 ×2; 81003; 87635; G0378 ×4; J2765; J2405; 96360; 99285

== ENCOUNTER 2020-06-04 12:58 | Observation (INO) | payer OTHER ==
[2020-06-04] MEDS ORDERED: SODIUM CHLORIDE 0.9% 2,000 ML IV ONE (13:17)
--- NOTE | 2020-06-04 13:19 | ED ---
General Adult HPI - General Source: patient, RN notes reviewed Mode of arrival: ambulatory Limitations: no limitations <Cirilo Raymond - Last Filed: 06/04/20 15:00> <Deana Shin - Last Filed: 06/08/20 00:17> - General Chief complaint: Psychiatric Symptoms Stated complaint: Suicidal,Diabetic Issues Time Seen by Provider: 06/04/20 13:09 - History of Present Illness Initial comments: This a 24-year-old male presents emergency Department chief complaint of depression, suicidal ideation, hyperglycemia. Patient states that he's been worsening with his depression, intermittent suicidal thoughts he has mid to mar ijuana use no other drug use currently denies alcohol use. Patient states she stopped taking his insulin approximately 2 weeks ago. Patient is a well-known diabetic to emergency department as poorly controlled. Patient has no complaints of nausea vomiting or difficulty breathing no fevers or chills. (Cirilo Raymond) - Related Data Home Medications Medication Instructions Recorded Confirmed Gabapentin [Neurontin] 600 mg PO BID 05/16/20 06/06/20 traZODone HCL [Desyrel] 100 - 200 mg PO HS 06/04/20 06/06/20 Previous Rx's Medication Instructions Recorded Insulin Glargine,Hum.rec.anlog 20 unit SQ AC-BRKFST #1 box 05/12/20 [Basaglar Kwikpen U-100] Insulin Lispro [Admelog Solostar] 10 units SQ AC-TID #1 box 05/12/20 Allergies Allergy/AdvReac Type Severity Reaction Status Date / Time No Known Allergies Allergy Verified 06/06/20 11:42 Review of Systems ROS Other: All systems not noted in ROS Statement are negative. <Cirilo Raymond - Last Filed: 06/04/20 15:00> ROS Other: All systems not noted in ROS Statement are negative. <Deana Shin - Last Filed: 06/08/20 00:17> ROS Statement: Those systems with pertinent positive or pertinent negative responses have been documented in the HPI. Past Medical History Past Medical History: Asthma, Diabetes Mellitus, Skin Disorder Additional Past Medical History / Comment(s): IDDM type I, neuropathy bilateral feet, DKA, eczema. History of multiple psychiatric hospitalizations or suicide attempts. History of Any Multi-Drug Resistant Organisms: None Reported Past Surgical History: Adenoidectomy Additional Past Surgical History / Comment(s): 2002 Past Anesthesia/Blood Transfusion Reactions: No Reported Reaction Past Psychological History: Anxiety, Depression Smoking Status: Former smoker Past Alcohol Use History: Occasional Past Drug Use History: Marijuana - Past Family History Mother Family Medical History: CVA/TIA Father Family Medical History: Hyperlipidemia, Hypertension Additional Family Medical History / Comment(s): . <Cirilo Raymond - Last Filed: 06/04/20 15:00> General Exam Limitations: no limitations General appearance: alert, in no apparent distress Head exam: Present: atraumatic, normocephalic, normal inspection Eye exam: Present: normal appearance, PERRL, EOMI. Absent: scleral icterus, conjunctival injection, periorbital swelling ENT exam: Present: normal exam, normal oropharynx, mucous membranes moist Neck exam: Present: normal inspection, full ROM. Absent: tenderness, meningismus, lymphadenopathy Respiratory exam: Present: normal lung sounds bilaterally. Absent: respiratory distress, wheezes, rales, rhonchi, stridor Cardiovascular Exam: Present: normal rhythm, tachycardia, normal heart sounds. Absent: systolic murmur, diastolic murmur, rubs, gallop, clicks GI/Abdominal exam: Present: soft, normal bowel sounds. Absent: distended, tenderness, guarding, rebound, rigid Neurological exam: Present: alert, oriented X3 Skin exam: Present: warm, dry, intact, normal color. Absent: rash <Cirilo Raymond - Last Filed: 06/04/20 15:00> Course Vital Signs 06/04/20 06/04/20 06/04/20 13:07 15:16 15:25 Temperature 98.3 F 97.5 F L Pulse Rate 118 H 73 Pulse Rate [ 72 Pulse Oximetery ] Respiratory 20 16 16 Rate Blood Pressure 102/60 104/77 Blood Pressure 109/78 [Right Arm] O2 Sat by Pulse 99 100 98 Oximetry Medical Decision Making - Lab Data Result diagrams: 06/04/20 13:31 06/04/20 13:31 <Cirilo Raymond - Last Filed: 06/04/20 15:00> - Lab Data Result diagrams: 06/04/20 13:31 06/05/20 19:55 <Deana Shin - Last Filed: 06/08/20 00:17> - Medical Decision Making Patient will be admitted to Dr. Valenzuela service for DKA pending psychiatric co nsult. Patient's was placed in DKA protocol. Patient's labs were reviewed. (Cirilo Raymond) I was available for consultation in the emergency department. The history and physical exam were done by the midlevel provider. I was consulted for this patients care. I reviewed the case with the midlevel provider and based on their presentation of the patient, I agree with the assessment, medical decision making and plan of care as documented. Chart was dictated using [employer] dictation software. Attempts were made to correct any dictation errors however some typographical errors may persist. Patient was seen during a national state of emergency due to the Covid-19 pandem ic. (Deana Shin) - Lab Data Lab Results 06/04/20 06/04/20 06/04/20 Range/Units 13:31 13:31 13:31 WBC 6.8 (3.8-10.6) k/uL RBC 5.25 (4.30-5.90) m/uL Hgb 16.9 (13.0-17.5) gm/dL Hct 47.6 (39.0-53.0) % MCV 90.6 (80.0-100.0) fL MCH 32.2 (25.0-35.0) pg MCHC 35.5 (31.0-37.0) g/dL RDW 13.8 (11.5-15.5) % Plt Count 284 (150-450) k/uL MPV 7.0 Neutrophils % 60 % Lymphocytes % 30 % Monocytes % 4 % Eosinophils % 5 % Basophils % 1 % Neutrophils # 4.1 (1.3-7.7) k/uL Lymphocytes # 2.0 (1.0-4.8) k/uL Monocytes # 0.3 (0-1.0) k/uL Eosinophils # 0.3 (0-0.7) k/uL Basophils # 0.1 (0-0.2) k/uL VBG pH (7.31-7.41) VBG pCO2 (37-51) mmHg VBG HCO3 (24-28) mmol/L Sodium 135 L (137-145) mmol/L Potassium 4.2 (3.5-5.1) mmol/L Chloride 94 L (98-107) mmol/L Carbon Dioxide 22 (22-30) mmol/L Anion Gap 19 mmol/L BUN 11 (9-20) mg/dL Creatinine 0.54 L (0.66-1.25) mg/dL Est GFR (CKD-EPI)AfAm >90 (>60 ml/min/1.73 sqM) Est GFR (CKD-EPI)NonAf >90 (>60 ml/min/1.73 sqM) Glucose 379 H (74-99) mg/dL POC Glucose (mg/dL) (75-99) mg/dL POC Glu Line Decorator ID Plasma Lactic Acid Len 1.1 (0.7-2.0) mmol/L Calcium 9.5 (8.4-10.2) mg/dL Total Bilirubin 0.8 (0.2-1.3) mg/dL AST 17 (17-59) U/L ALT 30 (4-49) U/L Alkaline Phosphatase 89 (38-126) U/L Total Protein 7.1 (6.3-8.2) g/dL Albumin 4.7 (3.5-5.0) g/dL Urine Color Urine Appearance (Clear) Urine pH (5.0-8.0) Ur Specific Alpha (1.001-1.035) Urine Protein (Negative) Urine Glucose (UA) (Negative) Urine Ketones (Negative) Urine Blood (Negative) Urine Nitrite (Negative) Urine Bilirubin (Negative) Urine Urobilinogen (<2.0) mg/dL Ur Leukocyte Esterase (Negative) Urine Opiates Screen (NotDetected) Ur Oxycodone Screen (NotDetected) Urine Methadone Screen (NotDetected) Ur Propoxyphene Screen (NotDetected) Ur Barbiturates Screen (NotDetected) U Tricyclic Antidepress (NotDetected) Ur Phencyclidine Scrn (NotDetected) Ur Amphetamines Screen (NotDetected) U Methamphetamines Scrn (NotDetected) U Benzodiazepines Scrn (NotDetected) Urine Cocaine Screen (NotDetected) U Marijuana (THC) Screen (NotDetected) Acetone, Qual Positive (Negative) 06/04/20 06/04/20 06/04/20 Range/Units 13:31 13:43 14:04 WBC (3.8-10.6) k/uL RBC (4.30-5.90) m/uL Hgb (13.0-17.5) gm/dL Hct (39.0-53.0) % MCV (80.0-100.0) fL MCH (25.0-35.0) pg MCHC (31.0-37.0) g/dL RDW (11.5-15.5) % Plt Count (150-450) k/uL MPV Neutrophils % % Lymphocytes % % Monocytes % % Eosinophils % % Basophils % % Neutrophils # (1.3-7.7) k/uL Lymphocytes # (1.0-4.8) k/uL Monocytes # (0-1.0) k/uL Eosinophils # (0-0.7) k/uL Basophils # (0-0.2) k/uL VBG pH 7.35 (7.31-7.41) VBG pCO2 45 (37-51) mmHg VBG HCO3 25 (24-28) mmol/L Sodium (137-145) mmol/L Potassium (3.5-5.1) mmol/L Chloride (98-107) mmol/L Carbon Dioxide (22-30) mmol/L Anion Gap mmol/L BUN (9-20) mg/dL Creatinine (0.66-1.25) mg/dL Est GFR (CKD-EPI)AfAm (>60 ml/min/1.73 sqM) Est GFR (CKD-EPI)NonAf (>60 ml/min/1.73 sqM) Glucose (74-99) mg/dL POC Glucose (mg/dL) 392 H (75-99) mg/dL POC Glu Line Decorator ID [place], Yvrose Plasma Lactic Acid Len (0.7-2.0) mmol/L Calcium (8.4-10.2) mg/dL Total Bilirubin (0.2-1.3) mg/dL AST (17-59) U/L ALT (4-49) U/L Alkaline Phosphatase (38-126) U/L Total Protein (6.3-8.2) g/dL Albumin (3.5-5.0) g/dL Urine Color Light Yellow Urine Appearance Clear (Clear) Urine pH 5.5 (5.0-8.0) Ur Specific Alpha 1.043 H (1.001-1.035) Urine Protein Trace H (Negative) Urine Glucose (UA) 4+ H (Negative) Urine Ketones 4+ H (Negative) Urine Blood Negative (Negative) Urine Nitrite Negative (Negative) Urine Bilirubin Negative (Negative) Urine Urobilinogen <2.0 (<2.0) mg/dL Ur Leukocyte Esterase Negative (Negative) Urine Opiates Screen (NotDetected) Ur Oxycodone Screen (NotDetected) Urine Methadone Screen (NotDetected) Ur Propoxyphene Screen (NotDetected) Ur Barbiturates Screen (NotDetected) U Tricyclic Antidepress (NotDetected) Ur Phencyclidine Scrn (NotDetected) Ur Amphetamines Screen (NotDetected) U Methamphetamines Scrn (NotDetected) U Benzodiazepines Scrn (NotDetected) Urine Cocaine Screen (NotDetected) U Marijuana (THC) Screen (NotDetected) Acetone, Qual (Negative) 06/04/20 Range/Units 14:04 WBC (3.8-10.6) k/uL RBC (4.30-5.90) m/uL Hgb (13.0-17.5) gm/dL Hct (39.0-53.0) % MCV (80.0-100.0) fL MCH (25.0-35.0) pg MCHC (31.0-37.0) g/dL RDW (11.5-15.5) % Plt Count (150-450) k/uL MPV Neutrophils % % Lymphocytes % % Monocytes % % Eosinophils % % Basophils % % Neutrophils # (1.3-7.7) k/uL Lymphocytes # (1.0-4.8) k/uL Monocytes # (0-1.0) k/uL Eosinophils # (0-0.7) k/uL Basophils # (0-0.2) k/uL VBG pH (7.31-7.41) VBG pCO2 (37-51) mmHg VBG HCO3 (24-28) mmol/L Sodium (137-145) mmol/L Potassium (3.5-5.1) mmol/L Chloride (98-107) mmol/L Carbon Dioxide (22-30) mmol/L Anion Gap mmol/L BUN (9-20) mg/dL Creatinine (0.66-1.25) mg/dL Est GFR (CKD-EPI)AfAm (>60 ml/min/1.73 sqM) Est GFR (CKD-EPI)NonAf (>60 ml/min/1.73 sqM) Glucose (74-99) mg/dL POC Glucose (mg/dL) (75-99) mg/dL POC Glu Line Decorator ID Plasma Lactic Acid Len (0.7-2.0) mmol/L Calcium (8.4-10.2) mg/dL Total Bilirubin (0.2-1.3) mg/dL AST (17-59) U/L ALT (4-49) U/L Alkaline Phosphatase (38-126) U/L Total Protein (6.3-8.2) g/dL Albumin (3.5-5.0) g/dL Urine Color Urine Appearance (Clear) Urine pH (5.0-8.0) Ur Specific Alpha (1.001-1.035) Urine Protein (Negative) Urine Glucose (UA) (Negative) Urine Ketones (Negative) Urine Blood (Negative) Urine Nitrite (Negative) Urine Bilirubin (Negative) Urine Urobilinogen (<2.0) mg/dL Ur Leukocyte Esterase (Negative) Urine Opiates Screen Not Detected (NotDetected) Ur Oxycodone Screen Not Detected (NotDetected) Urine Methadone Screen Not Detected (NotDetected) Ur Propoxyphene Screen Not Detected (NotDetected) Ur Barbiturates Screen Not Detected (NotDetected) U Tricyclic Antidepress Not Detected (NotDetected) Ur Phencyclidine Scrn Not Detected (NotDetected) Ur Amphetamines Screen Not Detected (NotDetected) U Methamphetamines Scrn Not Detected (NotDetected) U Benzodiazepines Scrn Not Detected (NotDetected) Urine Cocaine Screen Not Detected (NotDetected) U Marijuana (THC) Screen Detected H (NotDetected) Acetone, Qual (Negative) Critical Care Time Critical Care Time: Yes Total Critical Care Time: 35 <Cirilo Raymond - Last Filed: 06/04/20 15:00> Critical Care Time: Total 35 minutes of critical care time were used initially evaluated patient past medical history ordering labs, urinalysis. Patient's found to be in mild DKA. Patient was placed on insulin drip, patient was given IV fluid bolus case discussed with Dr. Valenzuela. Patient does have a consult to psychiatric services for ongoing depression, suicidal ideation. (Cirilo Raymond) Disposition <Cirilo Raymond - Last Filed: 06/04/20 15:00> <Deana Shin - Last Filed: 06/08/20 00:17> Clinical Impression: DKA (diabetic ketoacidoses), Depression, Suicidal ideation Disposition: ADMITTED IP TO THIS HOSP Condition: Fair
[2020-06-04 13:40] LABS: Basophils # (A) 0.1 k/uL (0-0.2); Basophils % (A) 1 %; Eosinophils # (A) 0.3 k/uL (0-0.7); Eosinophils % (A) 5 %; HCT 47.6 % (39.0-53.0); HGB 16.9 gm/dL (13.0-17.5); Lymphocytes % (A) 30 %; MCH 32.2 pg (25.0-35.0); MCHC 35.5 g/dL (31.0-37.0); MCV 90.6 fL (80.0-100.0); Monocytes # (A) 0.3 k/uL (0-1.0); Monocytes % (A) 4 %; Neutrophils # (A) 4.1 k/uL (1.3-7.7); Neutrophils % (A) 60 %; Platelet Count 284 k/uL (150-450); RBC 5.25 m/uL (4.30-5.90); RDW 13.8 % (11.5-15.5); VBG PH 7.35 (7.31-7.41); WBC 6.8 k/uL (3.8-10.6)
[2020-06-04 13:45] LABS: Glucose,Whole Blood 392 mg/dL (75-99)
[2020-06-04 13:50] LABS: ALT 30 U/L (4-49); AST 17 U/L (17-59); African American GFR (CKD) >90 (>60 ml/min/1.73 sqM); Albumin 4.7 g/dL (3.5-5.0); Alkaline Phosphatase 89 U/L (38-126); Anion Gap 19 mmol/L; Blood Urea Nitrogen 11 mg/dL (9-20); Calcium 9.5 mg/dL (8.4-10.2); Carbon Dioxide 22 mmol/L (22-30); Chloride 94 mmol/L (98-107); Glucose 379 mg/dL (74-99); Non-African American GFR(CKD) >90 (>60 ml/min/1.73 sqM); Potassium 4.2 mmol/L (3.5-5.1); Sodium 135 mmol/L (137-145); Total Bilirubin 0.8 mg/dL (0.2-1.3); Total Protein 7.1 g/dL (6.3-8.2)
[2020-06-04 14:17] LABS: Appearance,Urine Clear (Clear); Bilirubin,Urine Negative (Negative); Blood,Urine Negative (Negative); Color,Urine Light Yellow; Glucose,Urine (UA) 4+ (Negative); Leukocyte Esterase,Urine Negative (Negative); Nitrite,Urine Negative (Negative); PH, Urine 5.5 (5.0-8.0); Protein,Urine Trace (Negative); Specific Gravity,Urine 1.043 (1.001-1.035); Urobilinogen,Urine <2.0 mg/dL (<2.0)
[2020-06-04 14:27] LABS: Ketones,Urine 4+ (Negative)
[2020-06-04 14:38] LABS: Amphetamine Screen,Urine Not Detected (NotDetected); Barbiturate Screen,Urine Not Detected (NotDetected); Benzodiazepines Screen,Urine Not Detected (NotDetected); Cocaine Screen,Urine Not Detected (NotDetected); Methadone Screen, Urine Not Detected (NotDetected); Opiate Screen,Urine Not Detected (NotDetected); Oxycodone Screen, Urine Not Detected (NotDetected); Phencyclidine Screen,Urine Not Detected (NotDetected); Tricyclic Antidepressant,Urine Not Detected (NotDetected); Urn Cannabinoid Scrn Detected (NotDetected)
[2020-06-04] MEDS ORDERED: SODIUM CHLORIDE 0.9% 1,000 ML IV SCH (15:00)
[2020-06-04] MEDS ORDERED: INSULIN REGULAR 100 UNIT in SODIUM CHLORIDE 0.9% 100 ML IV SCH (15:00)
[2020-06-04 15:12] LABS: Glucose,Whole Blood 311 mg/dL (75-99)
[2020-06-04 16:05] LABS: Glucose,Whole Blood 233 mg/dL (75-99)
[2020-06-04] MEDS: D5-0.45% NACL WITH KCL 20MEQ/L 1,000 ML IV SCH ×2 (17:02→20:33)
[2020-06-04 17:15] LABS: Glucose,Whole Blood 212 mg/dL (75-99)
[2020-06-04 18:12] LABS: Glucose,Whole Blood 224 mg/dL (75-99)
[2020-06-04 18:14] LABS: African American GFR (CKD) >90 (>60 ml/min/1.73 sqM); Anion Gap 7 mmol/L; Blood Urea Nitrogen 10 mg/dL (9-20); Carbon Dioxide 28 mmol/L (22-30); Chloride 97 mmol/L (98-107); Glucose 171 mg/dL (74-99); Non-African American GFR(CKD) >90 (>60 ml/min/1.73 sqM); Phosphorus 2.6 mg/dL (2.5-4.5); Potassium 3.9 mmol/L (3.5-5.1); Sodium 132 mmol/L (137-145)
[2020-06-04 19:12] LABS: Glucose,Whole Blood 253 mg/dL (75-99)
[2020-06-04 20:04] LABS: Glucose,Whole Blood 276 mg/dL (75-99)
[2020-06-04] MEDS: INSULIN ASPART (NovoLOG) 100 UNIT/ML VIAL SQ SCH (20:32)
[2020-06-04 22:36] LABS: African American GFR (CKD) >90 (>60 ml/min/1.73 sqM); Anion Gap 8 mmol/L; Blood Urea Nitrogen 10 mg/dL (9-20); Carbon Dioxide 29 mmol/L (22-30); Chloride 93 mmol/L (98-107); Glucose 285 mg/dL (74-99); Non-African American GFR(CKD) >90 (>60 ml/min/1.73 sqM); Phosphorus 3.2 mg/dL (2.5-4.5); Potassium 4.1 mmol/L (3.5-5.1); Sodium 130 mmol/L (137-145)
[2020-06-04] MEDS: GABAPENTIN 300 MG CAP PO SCH (23:23)
[2020-06-04] MEDS: traZODone HCL 100 MG TAB PO SCH (23:23)
[2020-06-05 03:56] VITALS: RESP 16
[2020-06-05 07:08] LABS: Glucose,Whole Blood 251 mg/dL (75-99)
[2020-06-05] MEDS: INSULIN ASPART (NovoLOG) 100 UNIT/ML VIAL SQ SCH ×7 (07:10→21:50)
[2020-06-05] MEDS: INSULIN DETEMIR (LEVEMIR) 100 UNIT/ML SYR SQ SCH (07:10)
[2020-06-05] MEDS: GABAPENTIN 300 MG CAP PO SCH ×2 (09:38→21:50)
[2020-06-05 11:32] VITALS: BMI 16.9
--- NOTE | 2020-06-05 11:36 | P.CN ---
Psychiatric Consult - . Consult date: 06/05/20 Consult:: 06/05/20 10:21 IDENTIFYING DATA: Patient is a 24-year-old male with a history of depression and type 1 diabetes currently single with no kids living with his friend. HPI: Patient presented to the ED with complaints of depression, suicidal ideations and hyperglycemia. Patient has a known history of diabetes mellitus with noncompliance of his medications and poor glucose control. Patient claimed in the ER that he stopped taking his insulin several weeks ago. He was admitted to the medical floor as with DKA and his UDS was positive for THC. Psychiatry is consulted for suicidal ideations and depression. Patient was seen at the bedside today with his one-to-one sitter and appeared to have poor hygiene and grooming. He had a disheveled appearance and was unshaven. He was agreeable to speak to fiction and nonfiction writer prose and spoke of "losing my will to live". He states that he's been feeling weaker and more depressed recently. He states that he can't take care of himself any longer. He feels that he has been so depressed that he states that he stopped taking his insulin over a week ago and claims that that was his passive suicide attempt to "wither away". He claims that he called his mom and told her about not taking his medications and his mother brought him to the hospital. He claims that he has been trying to stay alive for his family and claims that he is unsure of what he will do if he is released from the hospital. He claims that he is willing to go to a care home that he was previously at if he can still get in. He admits to anxiety and poor appetite. He states that he's been smoking marijuana daily. He claims that his sleep was fair last night. He admits to ongoing suicidal thoughts however no intent or plan today. He denies any other recreational drug use and denies cigarette use. Patient denies any homicidal ideations. He denied any auditory or visual hallucinations. PAST PSYCHIATRIC HISTORY: Patient states that he has history of depression and anxiety and has had multiple hospitalizations. Patients has had several psychiatric hospitalizations in the past. Patient is established with [facility] has not been going to his appointments. He admitted to several suicide attempts in the past. Patient has been on trazodone in several other antidepressants in the past. PMH: Diabetes mellitus type 1 uncontrolled, asthma, skin disorder ALLERGIES: as per EMR CHEMICAL DEPENDENCY HISTORY: as per HPI FAMILY PSYCHIATRIC/SUBSTANCE USE HISTORY: One of his cousins committed suicide SOCIAL HISTORY: Patient is currently single has no kids is living with his friend at this time. He claims that he has attempted to work several different jobs however feel he cannot work at this time. MENTAL STATUS EXAM: General Appearance: Patient appears to be thin, frail, older than stated age is alert, guarded/evasive, attempts to be. Patient appears to have poor hygiene and grooming. Unshaven. Behavior: Patient is laying in bed without any agitated behavior. Guarded/evasive. Speech: Patient's speech is fluent and nonpressured. Soft tone. Mood/Affect: Patient reports their mood is depressed and anxious, affect is congruent and constricted. Suicidality/Homicidality: Patient denies having any homicidal ideation intent or plan. He admits to ongoing suicidal thoughts however no intent or plan today. Perceptions: Patient denies any visual hallucinations and denies any auditory hallucinations Though content/process: Demise of his symptoms, guarded and evasive. Denies any delusions or paranoia. Memory and concentration: AOX3, grossly intact for the purposes of this session. Can spell "WORLD" backwards Judgment and insight: Chronically poor IMPRESSIONS: Depressive disorder unspecified Anxiety disorder unspecified Cannabis abuse History of stimulant abuse. PLAN: -At this time DOES meet criteria for inpatient psychiatric hospitalization for his ongoing depression and suicidal thoughts and inability to care for himself. -Would recommend the following medication changes/additions: Patient is agreeable to start Cymbalta today 20 mg daily for mood/anxiety. Continue with trazodone at 100 mg daily at bedtime for insomnia/mood. -Check basic metabolic panel to see if electrolytes have improved. -Coding Assistant spoke with patient about substance abuse and the harmful effects on medical and mental health, patient verbally understood and agreed. -At this time will sign off. Once patient is medically cleared for transfer then patient can be transferred to the mental health floor if a psych bed is available. -Please contact with any questions. 06/05/20 11:29
[2020-06-05 12:05] LABS: Glucose,Whole Blood 190 mg/dL (75-99)
[2020-06-05 12:43] LABS: African American GFR (CKD) >90 (>60 ml/min/1.73 sqM); Anion Gap 6 mmol/L; Blood Urea Nitrogen 10 mg/dL (9-20); Calcium 8.9 mg/dL (8.4-10.2); Carbon Dioxide 31 mmol/L (22-30); Chloride 95 mmol/L (98-107); Glucose 187 mg/dL (74-99); Non-African American GFR(CKD) >90 (>60 ml/min/1.73 sqM); Sodium 132 mmol/L (137-145)
[2020-06-05 17:02] LABS: Glucose,Whole Blood 281 mg/dL (75-99)
[2020-06-05] MEDS: DULoxetine HCL 20 MG CAPSULE.DR PO SCH (17:46)
--- NOTE | 2020-06-05 19:56 | HP ---
HISTORY AND PHYSICAL CHIEF COMPLAINT: Intentional DKA. HISTORY OF PRESENT ILLNESS: This is another recent admission for this 24-year-old white male type 1 insulin- dependent diabetic. He has a long-standing history of personality problems, depression, and he frequently stops taking his insulin with the intent to be coming ketoacidotic and having to be admitted. He came to the emergency room again and had diabetic ketoacidosis and stated he was suicidal and trying to kill himself. REVIEW OF SYSTEMS: He denies any headaches, chest pain, shortness of breath, abdominal pain, nausea, vomiting, hematemesis, melena, hematochezia, jaundice, hepatitis, dysuria, frequency, urgency, etc. Past medical history, family history, and personal and social histories are unchanged. PHYSICAL EXAMINATION: Blood pressure is 119/64 with a pulse of 87 and respirations of 40. He is afebrile. In general he appears to be slender and very depressed. Skin color is normal. Skin is warm and dry. Lymph nodes are not enlarged. Head, ears, eyes, nose, mouth and throat are normal. Neck veins are not distended. Chest is clear to auscultation. Cardiac exam demonstrates sinus tachycardia. The abdomen is soft and flat. There are no masses and bowel sounds are present. Extremities are normal. Neurologically he is intact. He is admitted to the hospital with the diagnoses: 1. Intentional diabetic ketoacidosis. 2. Type 1 insulin-dependent juvenile-onset diabetes. 3. Major depression. PLAN: 1. Bedrest. 2. Treat DKA. 3. Psychiatric consultation. MMODL / IJN: [id number] /
--- NOTE | 2020-06-05 19:56 | PN ---
PROGRESS NOTE DATE OF SERVICE: 06/05/2020. CHIEF COMPLAINT: Depression and suicidal personality. HISTORY OF PRESENT ILLNESS: This gentleman is stable and his anion gap has closed. PHYSICAL EXAMINATION: He is very depressed and covers his face with a sheet. Chest is clear. Cardiac exam is normal. Abdomen is soft, nontender. IMPRESSION: 1. Diabetic ketoacidosis. 2. Depression. PLAN: 1. Advance diet and continue with IV fluids. 2. Await psychiatric evaluation. MMODL / IJN: [id number] /
[2020-06-05 20:19] LABS: African American GFR (CKD) >90 (>60 ml/min/1.73 sqM); Anion Gap 8 mmol/L; Blood Urea Nitrogen 12 mg/dL (9-20); Calcium 8.6 mg/dL (8.4-10.2); Carbon Dioxide 29 mmol/L (22-30); Chloride 95 mmol/L (98-107); Glucose 282 mg/dL (74-99); Non-African American GFR(CKD) >90 (>60 ml/min/1.73 sqM); Potassium 4.1 mmol/L (3.5-5.1); Sodium 132 mmol/L (137-145)
[2020-06-05 20:23] LABS: Glucose,Whole Blood 325 mg/dL (75-99)
[2020-06-05] MEDS: traZODone HCL 100 MG TAB PO SCH (21:50)
[2020-06-06 06:56] LABS: Glucose,Whole Blood 211 mg/dL (75-99)
[2020-06-06] MEDS: INSULIN DETEMIR (LEVEMIR) 100 UNIT/ML SYR SQ SCH (07:03)
[2020-06-06] MEDS: INSULIN ASPART (NovoLOG) 100 UNIT/ML VIAL SQ SCH ×2 (07:03)
[2020-06-06] MEDS: GABAPENTIN 300 MG CAP PO SCH (09:27)
[2020-06-06] MEDS: DULoxetine HCL 20 MG CAPSULE.DR PO SCH (09:31)
[2020-06-06 11:10] VITALS: BP 90/53; PULSE 89; TEMP 97.7
--- NOTE | 2020-06-06 19:58 | DS ---
DISCHARGE SUMMARY DATE OF SERVICE: 06/06/2020 CHIEF COMPLAINT: Diabetic ketoacidosis and depression. HISTORY OF PRESENT ILLNESS AND PHYSICAL EXAMINATION: Details of this man's history and physical can be found in the initial workup. COURSE IN THE HOSPITAL: After admission he was placed on bedrest and started on intravenous fluids and DKA protocol. Because he was suicidal, a sitter was provided. He was seen by Psychiatry and was recommended to be transferred to the psych floor. This was done on 06/06/2020. He was medically stable to make the transfer. FINAL DIAGNOSES: 1. Diabetic ketoacidosis. 2. Dehydration. 3. Type 1 insulin-dependent diabetes mellitus. 4. Major depression. 5. Suicidal thoughts. OPERATIONS: None. CONSULTATION: Psychiatry. He is improved. MMBIANCA / ALDEN: [id number] /
== END 2020-06-06 11:28 ==
LOC: EC 12:58 → 3SCARD 15:08 → INTOOBSV 15:08 → 3SCARD 15:25 → UNDODISIN 06-06 11:28
PROVIDERS: ADMIT Family Medicine; ATTEND Family Medicine
DX: E10.10 Type 1 diabetes mellitus with ketoacidosis without coma (principal); R45.851 Suicidal ideations; E86.0 Dehydration; F32.9 Major depressive disorder, single episode, unspecified; T38.3X6A Underdosing of insulin and oral hypoglycemic [antidiabetic] drugs, initial encounter; J45.909 Unspecified asthma, uncomplicated; L30.9 Dermatitis, unspecified; E10.42 Type 1 diabetes mellitus with diabetic polyneuropathy; F41.9 Anxiety disorder, unspecified; F12.10 Cannabis abuse, uncomplicated; F19.11 Other psychoactive substance abuse, in remission; Z74.3 Need for continuous supervision; Z91.128 Patient's intentional underdosing of medication regimen for other reason; Z79.899 Other long term (current) drug therapy; Z79.4 Long term (current) use of insulin; Z87.891 Personal history of nicotine dependence; Z91.5 Personal history of self-harm; Z90.89 Acquired absence of other organs; Z82.3 Family history of stroke; Z83.438 Family history of other disorder of lipoprotein metabolism and other lipidemia; Z82.49 Family history of ischemic heart disease and other diseases of the circulatory system; Z81.8 Family history of other mental and behavioral disorders
CPT/HCPCS: 96361 ×2; 96365; 96366 ×2; 82075; 99291; 36415; 80051; 80053; 80048; 82565; 82803; 82009; 83605; 84100; 82947; 84520; 85025; 81003; 80306; G0378 ×3; 96360

== ENCOUNTER 2020-06-06 11:21 | Inpatient (IN) | payer MEDICAID, OTHER ==
[2020-06-06 11:51] LABS: Glucose,Whole Blood 214 mg/dL (75-99)
[2020-06-06] MEDS ORDERED: MAGNESIUM HYDROXIDE 2,400 MG/10 ML CUP PO PRN (12:06)
[2020-06-06] MEDS ORDERED: ACETAMINOPHEN TAB 325 MG TAB PO PRN (12:06)
[2020-06-06 12:49] LABS: Glucose,Whole Blood 177 mg/dL (75-99)
[2020-06-06] MEDS: INSULIN ASPART (NovoLOG) 100 UNIT/ML VIAL SQ SCH ×5 (13:03→20:31)
[2020-06-06 17:46] LABS: Glucose,Whole Blood 203 mg/dL (75-99)
[2020-06-06 20:09] LABS: Glucose,Whole Blood 209 mg/dL (75-99)
[2020-06-06] MEDS: GABAPENTIN 300 MG CAP PO SCH (20:32)
[2020-06-06] MEDS ORDERED: traZODone HCL 100 MG TAB PO SCH (21:00)
[2020-06-07] MEDS ORDERED: INSULIN DETEMIR (LEVEMIR) 100 UNIT/ML SYR SQ SCH (07:30)
[2020-06-07 07:54] LABS: Glucose,Whole Blood 361 mg/dL (75-99)
[2020-06-07] MEDS: DULoxetine HCL 20 MG CAPSULE.DR PO SCH (07:56)
[2020-06-07] MEDS: GABAPENTIN 300 MG CAP PO SCH ×2 (07:56→22:05)
[2020-06-07] MEDS: INSULIN ASPART (NovoLOG) 100 UNIT/ML VIAL SQ SCH ×7 (07:56→20:27)
[2020-06-07 08:02] LABS: ALT 27 U/L (4-49); AST 27 U/L (17-59); African American GFR (CKD) >90 (>60 ml/min/1.73 sqM); Albumin 3.8 g/dL (3.5-5.0); Alkaline Phosphatase 56 U/L (38-126); Anion Gap 3 mmol/L; Bilirubin, Delta 0.2 mg/dL (0.0-0.2); Bilirubin,Unconjugated 0.2 mg/dL (0.0-1.1); Blood Urea Nitrogen 24 mg/dL (9-20); Carbon Dioxide 34 mmol/L (22-30); Chloride 99 mmol/L (98-107); Cholesterol 141 mg/dL (<200); Glucose 344 mg/dL (74-99); HDL Cholesterol 47 mg/dL (40-60); LDL Cholesterol,Calculated 73 mg/dL (0-99); Non-African American GFR(CKD) >90 (>60 ml/min/1.73 sqM); Potassium 4.8 mmol/L (3.5-5.1); Sodium 136 mmol/L (137-145); Total Bilirubin 0.4 mg/dL (0.2-1.3); Total Protein 6.1 g/dL (6.3-8.2); Triglycerides 107 mg/dL (<150)
--- NOTE | 2020-06-07 08:51 | P.HP ---
Psychiatric H&P - . H&P Date: 06/07/20 History & Physical: Allergies Allergy/AdvReac Type Severity Reaction Status Date / Time No Known Allergies Allergy Verified 06/06/20 11:42 Vital Signs Temp 97.8 F 06/07/20 06:44 Pulse 132 H 06/07/20 06:44 Resp 16 06/07/20 06:44 BP 107/78 06/07/20 06:44 Pulse Ox 99 06/06/20 11:35 Intake & Output 06/06/20 06/07/20 06/07/20 18:59 06:59 18:59 Weight 62.1 kg Laboratory Last Values Sodium 136 mmol/L (137-145) L 06/07/20 07:14 Potassium 4.8 mmol/L (3.5-5.1) 06/07/20 07:14 Chloride 99 mmol/L (98-107) 06/07/20 07:14 Carbon Dioxide 34 mmol/L (22-30) H 06/07/20 07:14 Anion Gap 3 mmol/L 06/07/20 07:14 BUN 24 mg/dL (9-20) H 06/07/20 07:14 Creatinine 0.58 mg/dL (0.66-1.25) L 06/07/20 07:14 Est GFR (CKD-EPI)AfAm >90 (>60 ml/min/1.73 sqM) 06/07/20 07:14 Est GFR (CKD-EPI)NonAf >90 (>60 ml/min/1.73 sqM) 06/07/20 07:14 Glucose 344 mg/dL (74-99) H 06/07/20 07:14 POC Glucose (mg/dL) 361 mg/dL (75-99) H 06/07/20 07:52 POC Glu Field Geologist ID Chasity Franco 06/07/20 07:52 Calcium 9.0 mg/dL (8.4-10.2) 06/07/20 07:14 Total Bilirubin 0.4 mg/dL (0.2-1.3) 06/07/20 07:14 Conjugated Bilirubin 0.0 mg/dL (0.0-0.3) 06/07/20 07:14 Unconjugated Bilirubin 0.2 mg/dL (0.0-1.1) 06/07/20 07:14 Delta Bilirubin 0.2 mg/dL (0.0-0.2) 06/07/20 07:14 AST 27 U/L (17-59) 06/07/20 07:14 ALT 27 U/L (4-49) 06/07/20 07:14 Alkaline Phosphatase 56 U/L (38-126) 06/07/20 07:14 Total Protein 6.1 g/dL (6.3-8.2) L 06/07/20 07:14 Albumin 3.8 g/dL (3.5-5.0) 06/07/20 07:14 Triglycerides 107 mg/dL (<150) 06/07/20 07:14 Cholesterol 141 mg/dL (<200) 06/07/20 07:14 LDL Cholesterol, Calc 73 mg/dL (0-99) 06/07/20 07:14 HDL Cholesterol 47 mg/dL (40-60) 06/07/20 07:14 06/07/20 08:40 IDENTIFYING DATA: Patient is a 24-year-old male with a history of depression and type 1 diabetes currently single with no kids living with his friend. HPI: Patient presented to the ED initially with complaints of depression, suicidal ideations and hyperglycemia. Patient has a known history of diabetes mellitus with noncompliance of his medications and poor glucose control. Patient claimed in the ER that he stopped taking his insulin several weeks ago. He was initially admitted to the medical floor as with DKA and his UDS was positive for THC. Patient was seen at the bedside by psychiatry liaison on the medical floors and appeared to have poor hygiene and grooming. He had a disheveled appearance and was unshaven. He spoke of "losing my will to live". He states that he's been feeling weaker and more depressed recently. He states that he can't take care of himself any longer. He feels that he has been so depressed that he states that he stopped taking his insulin over a week ago and claims that that was his passive suicide attempt to "wither away". He claims that he called his mom and told her about not taking his medications and his mother brought him to the hospital. He claims that he has been trying to stay alive for his family and claims that he is unsure of what he will do if he is released from the hospital. He claims that he is willing to go to a custodial that he was previously at if he can still get in. Today patient was seen once again by race and sports book writer for psychiatric evaluation and admission. Patient appears to have mildly improved hygiene and grooming and continues to speak of feeling depressed and anxious. He states that he has been taking the Cymbalta however has not felt any difference as of yet from the medication. He continues to report anxiety and he states that he slept approximately 4 hours last night. He admits to poor appetite. He states that he's been smoking marijuana daily. He admits to ongoing suicidal thoughts however no intent or plan today. He denies any other recreational drug use and denies cigarette use. Patient denies any homicidal ideations. He denied any auditory or visual hallucinations. PAST PSYCHIATRIC HISTORY: Patient states that he has history of depression and anxiety and has had multiple hospitalizations. Patients has had several psychiatric hospitalizations in the past. Patient is established with [facility] has not been going to his appointments. He admitted to several suicide attempts in the past. Patient has been on trazodone in several other antidepressants in the past. PMH: Diabetes mellitus type 1 uncontrolled, asthma, skin disorder ALLERGIES: as per EMR CHEMICAL DEPENDENCY HISTORY: as per HPI FAMILY PSYCHIATRIC/SUBSTANCE USE HISTORY: One of his cousins committed suicide SOCIAL HISTORY: Patient is currently single has no kids is living with his rosendo bragg at this time. He claims that he has attempted to work several different jobs however feel he cannot work at this time. MENTAL STATUS EXAM: General Appearance: Patient appears to be thin, frail, older than stated age is alert, directable and attempts to be cooperative. Patient appears to have poor hygiene and grooming. Behavior: Patient is sitting on the chair without any agitated behavior. Speech: Patient's speech is fluent and nonpressured. Soft tone. Mood/Affect: Patient reports their mood is depressed and anxious, affect is congruent and constricted. Suicidality/Homicidality: Patient denies having any homicidal ideation intent or plan. He admits to ongoing suicidal thoughts however no intent or plan today. Perceptions: Patient denies any visual hallucinations and denies any auditory hallucinations Though content/process: Demise of his symptoms, guarded and evasive. Denies any delusions or paranoia. Memory and concentration: AOX3, grossly intact for the purposes of this session. Can spell "WORLD" backwards Judgment and insight: Chronically poor STRENGTHS/WEAKNESSES: strength is that patient is resilient. Weakness is that patient has poor judgment and is impulsive INTELLECT: average IMPRESSIONS: Major depressive disorder, recurrent, severe without psychotic features Anxiety disorder unspecified Cannabis abuse History of stimulant abuse. PLAN: -Patient is admitted under voluntary status to MHU for stabilization of psychiatric symptoms and safety. Patient has signed adult voluntary form and medication consent and is placed in patient's chart. -Medications : Will start patient on trazodone 150 mg daily at bedtime for insomnia/, Cymbalta 20 mg daily for mood/anxiety. Added melatonin 3mg qhs for insomnia -Ativan and Haldol PRN for agitation/aggression -Patient was counselled on substance abuse and desired to cut back on use -Patient was informed of the risks, benefits and side effects of the medication and patient verbally consented to taking the medications. Patient signed med consent form and was placed in chart. -Internal Medicine consult to perform medical evaluation and physical. -NRT - not needed as patient does not smoke. - on board for discharge planning. Encourage patient to participate in groups to work on coping skills. Patient currently is homeless and has no place to go and social and human services assistant will attempt to work on placement in custodial and will be following up with [facility]. 06/07/20 08:51
[2020-06-07 11:06] LABS: Glucose,Whole Blood 107 mg/dL (75-99)
[2020-06-07 12:08] LABS: Glucose,Whole Blood 84 mg/dL (75-99)
[2020-06-07 12:43] LABS: Glucose,Whole Blood 91 mg/dL (75-99)
[2020-06-07 13:44] LABS: Hemoglobin A1C 12.2 % (4.0-6.0)
[2020-06-07 18:05] LABS: Glucose,Whole Blood 97 mg/dL (75-99)
[2020-06-07 20:10] LABS: Glucose,Whole Blood 127 mg/dL (75-99)
--- NOTE | 2020-06-07 20:40 | CONS ---
CONSULTATION CHIEF COMPLAINT: Major depression and suicidal thoughts. HISTORY OF PRESENT ILLNESS: The details of this man's history can be found in all the documents preceding his recent many admissions and discharges. He frequently stops taking his insulin and comes in in DKA very depressed. He came in this time stating that he was trying to kill himself. REVIEW OF SYSTEMS: He has had no neurologic problems, difficulty with vision, chest pain, shortness of breath, abdominal pain, vomiting, diarrhea, renal failure, etc. Past medical history, family history, and personal and social histories are all to be found in detail in his numerous hospital records. PHYSICAL EXAMINATION: Blood pressure is 133/80 with a pulse of 70, respirations of 15. He is afebrile. In general he appears to be tall, slender and depressed. Skin color is normal. Skin is warm and dry. Lymph nodes are not enlarged. Head, ears, eyes, nose, mouth and throat are normal. The chest is clear to auscultation. Cardiac exam demonstrates normal sinus rhythm with no murmurs or extra sounds. The abdomen is flat, soft, nontender. Extremities are normal. Neurologically he is intact. He is admitted to the psych unit with the diagnoses: 1. Major depression. 2. Suicidal thoughts. 3. Rarely controlled type 1 insulin-dependent juvenile-onset diabetes mellitus. RECOMMENDATIONS: None. I will adjust his insulin dosages with regard to his blood sugars. Thank you. Faithfully, Brown Valenzuela II, M.D. GRACE / ALDEN: [id number] /
[2020-06-07] MEDS ORDERED: MELATONIN 3 MG TABLET PO SCH (21:00)
[2020-06-07] MEDS: traZODone HCL 50 MG TAB PO SCH (22:05)
[2020-06-08 03:09] LABS: Glucose,Whole Blood 290 mg/dL (75-99)
[2020-06-08 08:04] LABS: Glucose,Whole Blood 344 mg/dL (75-99)
[2020-06-08] MEDS: INSULIN DETEMIR (LEVEMIR) 100 UNIT/ML SYR SQ SCH (08:11)
[2020-06-08] MEDS: DULoxetine HCL 20 MG CAPSULE.DR PO SCH (08:12)
[2020-06-08] MEDS: GABAPENTIN 300 MG CAP PO SCH ×2 (08:13→21:03)
[2020-06-08] MEDS: INSULIN ASPART (NovoLOG) 100 UNIT/ML VIAL SQ SCH ×7 (08:14→21:34)
[2020-06-08] MEDS: MAG HYDROX/AL HYDROX/SIMETH 30 ML CUP PO PRN (09:53)
--- NOTE | 2020-06-08 10:28 | P.PN ---
Progress Note - Text Progress Note Date: 06/08/20 Interval History: Patient was seen taking part in group this morning and was directable and agre eable to speak with internal communications writer in the office. Patient appears to have mildly improved hygiene and grooming. He continues to speak in a soft tone of voice and states that he is still feeling depressed at times however states that he wants to stay alive for his niece and nephew. He states that he has been chronically group and participated this as he can. He states that this morning he once again had an upset stomach and then nausea and vomiting after he drank water after breakfast. He states that this has been going on for several days prior to him being in the hospital. He claims that he has mild anxiety. He states that he is able sleep a bit better last night with the increase in trazodone and was okay to have his melatonin increased for tonight. He claims that he is motivated to do better and also was asking about placement options.. At this time patient denies any homical ideations, intent or plan. He continues to state that he has passive suicidal ideations. Patient denies any auditory, visual hallucinations and denies any paranoia or delusions. Patient denies any side effects from the medications and has been compliant with meds. Mental Status Exam: General Appearance: Patient appears to be thin, frail, older than stated age is alert, directable and attempts to be cooperative. Patient appears to have proving hygiene and grooming. Behavior: Patient is sitting on the chair without any agitated behavior. Speech: Patient's speech is fluent and nonpressured. Soft tone. Mood/Affect: Patient reports their mood is depressed, improving mildly, affect is congruent and constricted. Suicidality/Homicidality: Patient denies having any homicidal ideation intent or plan. He admits to ongoing suicidal thoughts however no intent or plan today. Perceptions: Patient denies any visual hallucinations and denies any auditory hallucinations Though content/process: Demise of his symptoms, guarded and evasive. Denies any delusions or paranoia. Memory and concentration: AOX3, grossly intact for the purposes of this session Judgment and insight: Chronically poor Assessment Major depressive disorder, recurrent, severe without psychotic features Anxiety disorder unspecified Cannabis abuse History of stimulant abuse. Plan: -Patient continues to meet criteria for inpatient psychiatric admission for symptom stabilization and safety. Patient has signed adult voluntary form and medication consent and was placed in patient's chart. -Medications: Continue with trazodone 150 mg daily at bedtime for insomnia/mood. Switched Cymbalta 20 mg to nighttime dosing for mood/anxiety to see if this is the culprit for patient's nausea/vomiting in the morning. Increase melatonin to 6 mg daily at bedtime for insomnia. -When necessary Ativan and Haldol for agitation/aggression. -NRT - not needed as patient does not smoke. -SW on board for discharge planning. Encouraged the patient to participate in milieu. Patient currently is homeless and has no place to go and social service coordinator will attempt to work on placement in senior care and will be following up with [facility].
[2020-06-08 12:42] LABS: Glucose,Whole Blood 86 mg/dL (75-99)
[2020-06-08 17:47] LABS: Glucose,Whole Blood 167 mg/dL (75-99)
[2020-06-08 20:09] LABS: Glucose,Whole Blood 148 mg/dL (75-99)
[2020-06-08] MEDS ORDERED: DULoxetine HCL 20 MG CAPSULE.DR PO SCH (21:00)
[2020-06-08] MEDS: traZODone HCL 50 MG TAB PO SCH (21:02)
[2020-06-08] MEDS: MELATONIN 3 MG TABLET PO SCH (21:02)
[2020-06-09 08:13] LABS: Glucose,Whole Blood 216 mg/dL (75-99)
[2020-06-09] MEDS: INSULIN DETEMIR (LEVEMIR) 100 UNIT/ML SYR SQ SCH (08:44)
[2020-06-09] MEDS: INSULIN ASPART (NovoLOG) 100 UNIT/ML VIAL SQ SCH ×7 (08:45→21:23)
[2020-06-09] MEDS: GABAPENTIN 300 MG CAP PO SCH ×2 (08:48→21:19)
[2020-06-09] MEDS: MAG HYDROX/AL HYDROX/SIMETH 30 ML CUP PO PRN (09:18)
--- NOTE | 2020-06-09 11:42 | P.PN ---
Progress Note - Text Progress Note Date: 06/09/20 Interval History: Patient was seen wandering the hallways this morning and was directable and ag reeable to speak with chief underwriter in the office. Patient appears to have mildly improved hygiene and grooming. He continues to speak in a soft tone of voice. He was fairly cooperative with the interview today. He claims that he is feeling mild improvement with his anxiety and mood throughout the day however states that today he also has improvement in his gastroparesis symptoms and claims that she was not feeling nauseous and did not vomit this morning. He attributed the improvement in his nausea and vomiting to not having water this morning. He claims that he is continuing to have passive suicidal thoughts however no intent or plan today. He states that he is able sleep a bit better last night and wants to remain on the same dose of melatonin and trazodone. He claims that he is motivated to do better and also was asking about placement options. Hospital Wellness Coordinator discussed with patient the options however it appears at this time that patient would not be a candidate for a penitentiary. At this time patient denies any homical ideations, intent or plan. Patient denies any auditory, visual hallucinations and denies any paranoia or delusions. Patient denies any side effects from the medications and has been compliant with meds. Mental Status Exam: General Appearance: Patient appears to be thin, frail, older than stated age is alert, directable and attempts to be cooperative. Patient appears to have proving hygiene and grooming. Behavior: Patient is sitting on the chair without any agitated behavior. Speech: Patient's speech is fluent and nonpressured. Soft tone. Mood/Affect: Patient reports their mood is,improving mildly, affect is congruent and constricted. Suicidality/Homicidality: Patient denies having any homicidal ideation intent or plan. He admits to ongoing suicidal thoughts however no intent or plan today. Perceptions: Patient denies any visual hallucinations and denies any auditory hallucinations Though content/process: Demise of his symptoms, guarded and evasive. Denies any delusions or paranoia. Memory and concentration: AOX3, grossly intact for the purposes of this session Judgment and insight: Chronically poor, improving mildly Assessment Major depressive disorder, recurrent, severe without psychotic features Anxiety disorder unspecified Cannabis abuse History of stimulant abuse Plan: -Patient continues to meet criteria for inpatient psychiatric admission for symptom stabilization and safety. Patient has signed adult voluntary form and medication consent and was placed in patient's chart. -Medications: Continue with trazodone 150 mg daily at bedtime for insomnia/mood. increased Cymbalta 30 mg nighttime dosing for mood/anxiety. continuous elatonin to 6 mg daily at bedtime for insomnia. -When necessary Ativan and Haldol for agitation/aggression. -NRT - not needed as patient does not smoke. -SW on board for discharge planning. Encouraged the patient to participate in milieu. Patient currently is homeless and has no place to go. Patient will likely be returning back to previous residence versus another friend's house upon discharge as patient does not qualify for a penitentiary at this time. Patient will be seen by [facility] for intake on Friday on the unit and then likely discharge after that.
[2020-06-09 12:43] LABS: Glucose,Whole Blood 84 mg/dL (75-99)
[2020-06-09 17:48] LABS: Glucose,Whole Blood 84 mg/dL (75-99)
[2020-06-09] MEDS: LORazepam 1 MG TAB PO PRN (18:58)
[2020-06-09] MEDS ORDERED: HALOPERIDOL LACTATE 5 MG/ML 1 ML VIAL IM PRN (19:02)
[2020-06-09] MEDS ORDERED: LORazepam 2 MG/ML INJ IM PRN (19:04)
[2020-06-09] MEDS ORDERED: LORazepam 2 MG/ML INJ ONE (19:13)
--- NOTE | 2020-06-09 20:51 | XR ---
Result: Clinical History: Pain. Comparison: None available. Technique: 3 views of the right hand. Findings: No acute fracture or dislocation is seen. The visualized osseous structures are in anatomic alignmen t. The joint spaces are preserved. There is no definite radiopaque foreign body seen. There is soft tissue edema at the dorsum of the hand. Impression: No acute osseous abnormality.
[2020-06-09] MEDS: MELATONIN 3 MG TABLET PO SCH (21:19)
[2020-06-09] MEDS: DULoxetine HCL 30 MG CAPSULE.DR PO SCH (21:19)
[2020-06-09] MEDS: traZODone HCL 50 MG TAB PO SCH (21:19)
[2020-06-09 21:28] LABS: Glucose,Whole Blood 306 mg/dL (75-99)
[2020-06-10 07:55] LABS: Glucose,Whole Blood 175 mg/dL (75-99)
[2020-06-10] MEDS: GABAPENTIN 300 MG CAP PO SCH ×2 (08:01→20:50)
[2020-06-10] MEDS: INSULIN ASPART (NovoLOG) 100 UNIT/ML VIAL SQ SCH ×7 (08:01→20:18)
[2020-06-10] MEDS: INSULIN DETEMIR (LEVEMIR) 100 UNIT/ML SYR SQ SCH (08:01)
[2020-06-10 13:09] LABS: Glucose,Whole Blood 75 mg/dL (75-99)
--- NOTE | 2020-06-10 15:29 | P.PN ---
Progress Note - Text Progress Note Date: 06/10/20 Clinical Problems: Major depressive disorder recurrent severe without psychotic features, unspecified anxiety disorder, cannabis use disorder, history of stimulant abuse Interim history: I reviewed the medical record for the patient. The charge nurse called me yesterday evening concerned about his behavior. 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 He told nurse that she wanted to kill himself and plans to kill himself when his discharge. He began punching the wall with his hand. He refused to contract for safety alleging as life is over. His management required administration of Ativan and Haldol IM and we placed him on one-to-one. During our interview he was remorseful of his behavior. He requested to be taken off of one-to-one. He admits he became distressed when he learned of his debt but believes that his parents will help him and he could possibly negotiate a payment option. He denied having thoughts of or suicide. Denies any t houghts of self-harm. I discussed his request with nursing who commented that his behavior was out of character. They concurred with his request to be taken off one-to-one. Mental status exam: He presented as a tall thin casually groomed 24-year-old male who was pleasant on approach. He made eye contact and attended to the interview. He had a blunted but bright facial expression. He was alert and oriented to person, place and time. He showed no abnormality of psychomotor activity. His gait was slow but steady. His speech was spontaneous with normal rate, volume and rhythm. His affect was blunted but stable and appropriate. He denied suicidal ideation and wishes. He denied homicidal ideation. He did not express ideas reference, paranoid ideation or delusions. His thinking was concrete but his associations were coherent, logical and goal directed. Assessment: He is much less distressed and is denying thoughts of self-harm. Plan: Continue inpatient treatment. Safety precautions. Discontinue one-to-one. Continue Cymbalta 30 mg at bedtime, Neurontin 600 mg twice a day, melatonin 6 mg at bedtime and trazodone 50 mg at bedtime. Ativan and/or Haldol when necessary for agitation or aggression. Encourage participation in therapeutic groups and activities. Evaluate clinical status response to treatment daily basis.
[2020-06-10 17:47] LABS: Glucose,Whole Blood 177 mg/dL (75-99)
[2020-06-10 20:03] LABS: Glucose,Whole Blood 147 mg/dL (75-99)
[2020-06-10] MEDS: traZODone HCL 50 MG TAB PO SCH (20:50)
[2020-06-10] MEDS: MELATONIN 3 MG TABLET PO SCH (20:50)
[2020-06-10] MEDS: DULoxetine HCL 30 MG CAPSULE.DR PO SCH (20:51)
[2020-06-10] MEDS: LORazepam 1 MG TAB PO PRN (20:52)
[2020-06-11 07:46] LABS: Glucose,Whole Blood 241 mg/dL (75-99)
[2020-06-11] MEDS: INSULIN DETEMIR (LEVEMIR) 100 UNIT/ML SYR SQ SCH (07:59)
[2020-06-11] MEDS: INSULIN ASPART (NovoLOG) 100 UNIT/ML VIAL SQ SCH ×7 (07:59→20:21)
[2020-06-11] MEDS: GABAPENTIN 300 MG CAP PO SCH ×2 (08:00→20:20)
[2020-06-11 12:42] LABS: Glucose,Whole Blood 111 mg/dL (75-99)
--- NOTE | 2020-06-11 14:42 | P.PN ---
Progress Note - Text Progress Note Date: 06/11/20 Clinical Problems: Major depressive disorder recurrent severe without psychotic features, unspecified anxiety disorder, cannabis use disorder, history of stimulant abuse Interim history: I reviewed the medical record and interviewed the patient. He denied problems or concerns. He denied feeling depressed, irritable or angry. He denied experiencing hallucinations, paranoia or confusion. He said no episodes of behavioral dyscontrol. He plans to move in with a friend until he finds a job and cannot afford his own apartment. Mental status exam: He presented as a tall thin casually groomed 24-year-old male who was pleasant on approach. He made eye contact and attended to the interview. He had a blunted but bright facial expression. He was alert and oriented to person, place and time. He showed no abnormality of psychomotor activity. His gait was slow but steady. His speech was spontaneous with normal rate, volume and rhythm. His affect was blunted but stable and appropriate. He denied suicidal ideation and wishes. He denied homicidal ideation. He did not express ideas reference, paranoid ideation or delusions. His thinking was concrete but his associations were coherent, logical and goal directed. Assessment: He appears moderately mentally ill and much improved from admission. Plan: Continue inpatient treatment. Safety precautions. Continue Cymbalta 30 mg at bedtime, Neurontin 600 mg twice a day, melatonin 6 mg at bedtime and trazodone 50 mg at bedtime. Ativan and/or Haldol when necessary for agitation or aggression. Encourage participation in therapeutic groups and activities. Evaluate clinical status response to treatment daily basis.
[2020-06-11 17:55] LABS: Glucose,Whole Blood 191 mg/dL (75-99)
[2020-06-11 19:59] LABS: Glucose,Whole Blood 193 mg/dL (75-99)
[2020-06-11 20:09] LABS: Appearance,Urine Clear (Clear); Bilirubin,Urine Negative (Negative); Blood,Urine Negative (Negative); Color,Urine Light Yellow; Glucose,Urine (UA) 4+ (Negative); Ketones,Urine Negative (Negative); Leukocyte Esterase,Urine Negative (Negative); Nitrite,Urine Negative (Negative); Protein,Urine Negative (Negative); Specific Gravity,Urine 1.023 (1.001-1.035); Urobilinogen,Urine <2.0 mg/dL (<2.0)
[2020-06-11] MEDS: MELATONIN 3 MG TABLET PO SCH (20:19)
[2020-06-11] MEDS: LORazepam 1 MG TAB PO PRN (20:20)
[2020-06-11] MEDS: traZODone HCL 50 MG TAB PO SCH (20:21)
[2020-06-11] MEDS: DULoxetine HCL 30 MG CAPSULE.DR PO SCH (20:21)
[2020-06-12 07:38] LABS: Glucose,Whole Blood 266 mg/dL (75-99)
[2020-06-12] MEDS: INSULIN ASPART (NovoLOG) 100 UNIT/ML VIAL SQ SCH ×7 (08:30→21:10)
[2020-06-12] MEDS: GABAPENTIN 300 MG CAP PO SCH ×2 (08:42→21:10)
[2020-06-12] MEDS: INSULIN DETEMIR (LEVEMIR) 100 UNIT/ML SYR SQ SCH (08:44)
--- NOTE | 2020-06-12 10:39 | P.PN ---
Progress Note - Text Progress Note Date: 06/12/20 Interval History: Patient was seen wandering the hallways this morning and was directable and ag reeable to speak with appeals writer in the office. Patient appears to have mildly improved hygiene and grooming. He continues to speak in a soft tone of voice with a depressed affect today. He continues to attempt to be cooperative during the interview. He states that he feels "about the same" and continues to refer to his depression that he is dealing with. He continues to mention feeling hopeless as he was relying on going to the skilled nursing once he is discharged from the unit however this is not a possibility for him and he states that "I'm just going to sit around and mope all day and probably won't live long". He claims that he has improvement in his gastroparesis symptoms and claims that she was not feeling nauseous and did not vomit this morning. He claims that he is continuing to have passive suicidal thoughts however no intent or plan today. He states that his sleep over the weekend was "not that good" and was requesting that his trazodone increased for tonight. At this time patient denies any homical ideations, intent or plan. Patient denies any auditory, visual hallucinations and denies any paranoia or delusions. Patient denies any side effects from the medications and has been compliant with meds. Mental Status Exam: General Appearance: Patient appears to be thin, frail, older than stated age is alert, directable and attempts to be cooperative. Patient appears to have improving hygiene and grooming. Behavior: Patient is sitting on the chair without any agitated behavior. Speech: Patient's speech is fluent and nonpressured. Soft tone. Mood/Affect: Patient reports their mood is "the same" and continues to speak about his depression, affect is congruent and constricted. Suicidality/Homicidality: Patient denies having any homicidal ideation intent or plan. He admits to ongoing passive suicidal thoughts however no intent or plan today. Perceptions: Patient denies any visual hallucinations and denies any auditory hallucinations Though content/process: Demise of his symptoms, guarded and evasive. Denies any delusions or paranoia. Memory and concentration: AOX3, grossly intact for the purposes of this session Judgment and insight: Chronically poor, improving mildly Assessment Major depressive disorder, recurrent, severe without psychotic features Anxiety disorder unspecified Cannabis abuse History of stimulant abuse Plan: -Patient continues to meet criteria for inpatient psychiatric admission for symptom stabilization and safety. Patient has signed adult voluntary form and medication consent and was placed in patient's chart. -Medications: Increased trazodone 200 mg daily at bedtime for insomnia/mood. increased Cymbalta 60 mg nighttime dosing for mood/anxiety. Continue melatonin to 6 mg daily at bedtime for insomnia. -When necessary Ativan and Haldol for agitation/aggression. -NRT - not needed as patient does not smoke. - on board for discharge planning. Encouraged the patient to participate in milieu. Patient currently is homeless. Patient will likely be returning back to previous residence versus another friend's house upon discharge as patient does not qualify for a skilled nursing at this time. Patient will be seen by [facility] for intake on Friday on the unit and then likely discharged after that.
[2020-06-12 12:45] LABS: Glucose,Whole Blood 256 mg/dL (75-99)
[2020-06-12 17:49] LABS: Glucose,Whole Blood 186 mg/dL (75-99)
[2020-06-12 19:55] LABS: Glucose,Whole Blood 218 mg/dL (75-99)
[2020-06-12] MEDS: DULoxetine HCL 60 MG CAPSULE.DR PO SCH (21:09)
[2020-06-12] MEDS: MELATONIN 3 MG TABLET PO SCH (21:09)
[2020-06-12] MEDS: traZODone HCL 100 MG TAB PO SCH (21:09)
[2020-06-13 07:46] LABS: Glucose,Whole Blood 210 mg/dL (75-99)
[2020-06-13] MEDS: INSULIN DETEMIR (LEVEMIR) 100 UNIT/ML SYR SQ SCH (08:12)
[2020-06-13] MEDS: INSULIN ASPART (NovoLOG) 100 UNIT/ML VIAL SQ SCH ×7 (08:12→22:14)
[2020-06-13] MEDS: GABAPENTIN 300 MG CAP PO SCH ×2 (08:12→20:55)
--- NOTE | 2020-06-13 08:54 | P.PN ---
Progress Note - Text Progress Note Date: 06/13/20 Interval History: Patient was seen wandering the hallways this morning speaking with another pat ient and was directable and agreeable to speak with junior copywriter in the office. Patient appears to have mildly improved hygiene and grooming. He continues to speak in a soft tone of voice. He states that he feels less depressed today and claims that he has been taking his medications. He states that he feels "less madrigal" and states that he feels the Cymbalta is being well tolerated by his body. He states that he is agreeable to continue with his medication at this time. He continues to claim that he is going to the morning groups however is finding little benefit in other groups. He claims that he was in a bad environment prior to coming into the hospital and claimed that he was not taking care of himself" withering away". He states that now he is trying to talk with his father or his sister to go and live with them. He claims that he has improvement in his gastroparesis symptoms and claims that she was not feeling nauseous and did not vomit this morning. He states that he was able to sleep better last night on the increase in trazodone. At this time patient denies any homical ideations, intent or plan. Today he is denying any suicidal thoughts or plan. Patient denies any auditory, visual hallucinations and denies any paranoia or delusions. Patient denies any side effects from the medications and has been compliant with meds. Mental Status Exam: General Appearance: Patient appears to be thin, frail, older than stated age is alert, directable and attempts to be cooperative. Patient appears to have improving hygiene and grooming. Behavior: Patient is sitting on the chair without any agitated behavior. Speech: Patient's speech is fluent and nonpressured. Soft tone. Mood/Affect: Patient reports their mood is "a bit better" affect is congruent and constricted. Suicidality/Homicidality: Patient denies having any homicidal ideation intent or plan. He denies any suicidal thoughts no intent or plan today. Perceptions: Patient denies any visual hallucinations and denies any auditory hallucinations Though content/process: Demise of his symptoms, guarded and evasive. Denies any delusions or paranoia. Memory and concentration: AOX3, grossly intact for the purposes of this session Judgment and insight: Chronically poor, improving mildly Assessment Major depressive disorder, recurrent, severe without psychotic features Anxiety disorder unspecified Cannabis abuse History of stimulant abuse Plan: -Patient continues to meet criteria for inpatient psychiatric admission for symptom stabilization and safety. Patient has signed adult voluntary form and medication consent and was placed in patient's chart. -Medications: Continue with trazodone 200 mg daily at bedtime for insomnia/mood. Continue with Cymbalta 60 mg nighttime dosing for mood/anxiety. Continue melatonin to 6 mg daily at bedtime for insomnia. -When necessary Ativan and Haldol for agitation/aggression. -NRT - not needed as patient does not smoke. -SW on board for discharge planning. Encouraged the patient to participate in milieu. Patient currently is homeless. Patient is currently looking into either going to live with his father or his sister upon discharge. Patient will be seen by [facility] for intake today. Likely discharge tomorrow.
[2020-06-13 12:46] LABS: Glucose,Whole Blood 101 mg/dL (75-99)
[2020-06-13 17:15] LABS: Glucose,Whole Blood 129 mg/dL (75-99)
[2020-06-13 19:56] LABS: Glucose,Whole Blood 172 mg/dL (75-99)
[2020-06-13] MEDS: DULoxetine HCL 60 MG CAPSULE.DR PO SCH (20:55)
[2020-06-13] MEDS: traZODone HCL 100 MG TAB PO SCH (20:55)
[2020-06-13] MEDS: LORazepam 1 MG TAB PO PRN (20:55)
[2020-06-13] MEDS: MELATONIN 3 MG TABLET PO SCH (20:55)
[2020-06-14 07:46] LABS: Glucose,Whole Blood 267 mg/dL (75-99)
[2020-06-14] MEDS: GABAPENTIN 300 MG CAP PO SCH ×2 (08:35→21:58)
[2020-06-14] MEDS: INSULIN DETEMIR (LEVEMIR) 100 UNIT/ML SYR SQ SCH (08:36)
[2020-06-14] MEDS: INSULIN ASPART (NovoLOG) 100 UNIT/ML VIAL SQ SCH ×7 (08:36→21:09)
--- NOTE | 2020-06-14 11:42 | P.PN ---
Progress Note - Text Progress Note Date: 06/14/20 Interval History: Patient was seen taking part in group this morning and was directable and agre eable to speak with senior writer in the office. Patient appears to have mildly improved hygiene and grooming. He continues to speak in a soft tone of voice. He claims that he is doing "about the same" and continues to speak of his depression. He states that he was also feeling irritable yesterday and had a low frustration tolerance. He states that he was not able to sit with the delinquency prevention social worker and complete the disability application as he states that "they hung up on us twice". He states that he got up and left and made suicidal statements afterwards. He claims that he does not have many options of places to go when he is discharged from the unit and states that his father has been talking with his girlfriend about possibly having him live with them. He states that he feels it would be the best environment for him. He claims that he was not able to sleep well last night and required an Ativan. He states that slowly he is eating more and trying to go to groups as best as he can. Patient was agreeable to have his Cymbalta increased tonight. He claims that he has improvement in his gastroparesis symptoms and claims that she was not feeling nauseous today. At this time patient denies any homical ideations, intent or plan. Today he is continuing to state that he has suicidal thoughts however no plan or intent. Patient denies any auditory, visual hallucinations and denies any paranoia or delusions. Patient denies any side effects from the medications and has been compliant with meds. Mental Status Exam: General Appearance: Patient appears to be thin, frail, older than stated age is alert, directable and attempts to be cooperative. Patient appears to have improving hygiene and grooming. Behavior: Patient is sitting on the chair without any agitated behavior. irritable at times. Speech: Patient's speech is fluent and nonpressured. Soft tone. Mood/Affect: Patient reports their mood is "the same" affect is congruent and constricted. Suicidality/Homicidality: Patient denies having any homicidal ideation intent or plan. He admits to suicidal thoughts howver no plan or intent. Perceptions: Patient denies any visual hallucinations and denies any auditory hallucinations Though content/process: guarded and evasive, mildly improving. Poor insight into his condition. Denies any delusions or paranoia. Memory and concentration: AOX3, grossly intact for the purposes of this session Judgment and insight: Chronically poor, improving mildly Assessment Major depressive disorder, recurrent, severe without psychotic features Anxiety disorder unspecified Cannabis abuse History of stimulant abuse Plan: -Patient continues to meet criteria for inpatient psychiatric admission for symptom stabilization and safety. Patient has signed adult voluntary form and medication consent and was placed in patient's chart. -Medications: Increased trazodone 300 mg daily at bedtime for insomnia/mood. Increased Cymbalta 90 mg nighttime dosing for mood/anxiety. Continue melatonin to 6 mg daily at bedtime for insomnia. -When necessary Ativan and Haldol for agitation/aggression. -NRT - not needed as patient does not smoke. -SW on board for discharge planning. Encouraged the patient to participate in milieu. Patient currently is homeless. Patient is currently looking into either going to live with his father or his sister upon discharge. Still waiting on confirmation of place to go and good discharge plan as patient has a high likelihood of rehospitalization if not appropriately placed in a supportive environment.
[2020-06-14 12:34] LABS: Glucose,Whole Blood 135 mg/dL (75-99)
[2020-06-14 14:16] VITALS: BMI 17.9
[2020-06-14 15:57] LABS: Glucose,Whole Blood 66 mg/dL (75-99)
[2020-06-14 16:10] LABS: Glucose,Whole Blood 68 mg/dL (75-99)
[2020-06-14 16:29] LABS: Glucose,Whole Blood 122 mg/dL (75-99)
--- NOTE | 2020-06-14 17:21 | PN ---
PROGRESS NOTE DATE OF SERVICE: 06/14/2020. CHIEF COMPLAINT: Major depression and uncontrolled type 1 insulin-dependent diabetes mellitus. HISTORY OF PRESENT ILLNESS: This gentleman is doing fairly well, and his sugars have come under much better control. He dropped down to around 60 today, however, and we will cut his Lantus down by 2 units. PHYSICAL EXAMINATION: Physical exam is not performed at this time. IMPRESSION: Uncontrolled type 1 insulin-dependent diabetes mellitus. PLAN: Cut the Lantus from 26 to 24 units a day and continue to follow while he is on the psychiatric unit. MMODL / IJN: [id number] /
[2020-06-14 17:43] LABS: Glucose,Whole Blood 166 mg/dL (75-99)
[2020-06-14 19:59] LABS: Glucose,Whole Blood 220 mg/dL (75-99)
[2020-06-14] MEDS: LORazepam 1 MG TAB PO PRN (21:57)
[2020-06-14] MEDS: MELATONIN 3 MG TABLET PO SCH (21:57)
[2020-06-14] MEDS: DULoxetine HCL 30 MG CAPSULE.DR PO SCH (21:58)
[2020-06-14] MEDS: traZODone HCL 100 MG TAB PO SCH (21:58)
[2020-06-15] MEDS: MAG HYDROX/AL HYDROX/SIMETH 30 ML CUP PO PRN (07:45)
[2020-06-15 07:50] LABS: Glucose,Whole Blood 254 mg/dL (75-99)
[2020-06-15] MEDS: INSULIN DETEMIR (LEVEMIR) 100 UNIT/ML SYR SQ SCH (08:44)
[2020-06-15] MEDS: GABAPENTIN 300 MG CAP PO SCH ×2 (08:45→20:50)
[2020-06-15] MEDS: INSULIN ASPART (NovoLOG) 100 UNIT/ML VIAL SQ SCH ×7 (08:45→21:19)
--- NOTE | 2020-06-15 10:55 | P.PN ---
Progress Note - Text Progress Note Date: 06/15/20 Interval History: Patient was seen taking part in group this morning and was directable and agre eable to speak with conventional mortgage underwriter in the office. Patient appears to have mildly improved hygiene and grooming. He continues to speak about his depression and how he is "struggling with it". He states that he is being more distracted on the unit with his books and also going to groups. He claims that he is trying to participate more in the group setting. He spoke significantly today about the book that he was reading and [employer]. He is continuing to have fleeting thoughts of suicide however no intent or plan on the unit. He states that his anxiety has been improving on the medications. He claims that he spoke with his dad yesterday who is considering having him stay with him upon discharge. He claims that he feels this would be the best environment and place for him to go as he would be away from [place]. He states that he did not sleep throughout the night and was agreeable to have his trazodone increased. He continues to have chronically poor insight. At this time patient denies any homical ideations, intent or plan. Today he is continuing to state that he has suicidal thoughts however no plan or intent. Patient denies any auditory, visual hallucinations and denies any paranoia or delusions. Patient denies any side effects from the medications and has been compliant with meds. Mental Status Exam: General Appearance: Patient appears to be thin, frail, older than stated age is alert, directable and superficially cooperative. Patient appears to have improving hygiene and grooming. Behavior: Patient is sitting on the chair without any agitated behavior. Speech: Patient's speech is fluent and nonpressured. Soft tone. Mood/Affect: Patient reports their mood is "depressed" however is improving mildly, affect is congruent and constricted. Suicidality/Homicidality: Patient denies having any homicidal ideation intent or plan. He admits to ongoing suicidal thoughts however no plan or intent. Perceptions: Patient denies any visual hallucinations and denies any auditory hallucinations Though content/process: guarded and evasive, mildly improving. Poor insight into his condition. Denies any delusions or paranoia. Memory and concentration: AOX3, grossly intact for the purposes of this session Judgment and insight: Chronically poor, improving mildly Assessment Major depressive disorder, recurrent, severe without psychotic features Anxiety disorder unspecified Cannabis abuse History of stimulant abuse Plan: -Patient continues to meet criteria for inpatient psychiatric admission for symptom stabilization and safety. Patient has signed adult voluntary form and medication consent and was placed in patient's chart. -Medications: Increased trazodone 300 mg daily at bedtime for insomnia/mood. continue with Cymbalta 90 mg nighttime dosing for mood/anxiety. Continue melatonin to 6 mg daily at bedtime for insomnia. -When necessary Ativan and Haldol for agitation/aggression. -NRT - not needed as patient does not smoke. -SW on board for discharge planning. Encouraged the patient to participate in milieu. Patient currently is homeless and is currently looking into either going to live with his father or his sister upon discharge. Still waiting on confirmation of place to go and good discharge plan as patient has a high likelihood of rehospitalization if not appropriately placed in a supportive environment. likely discharge in 1-2 days.
[2020-06-15 12:57] LABS: Glucose,Whole Blood 100 mg/dL (75-99)
[2020-06-15 17:40] LABS: Glucose,Whole Blood 113 mg/dL (75-99)
--- NOTE | 2020-06-15 19:00 | PN ---
PROGRESS NOTE CHIEF COMPLAINT: Depression and uncontrolled diabetes. HISTORY OF PRESENT ILLNESS: This gentleman's sugars were slightly low yesterday. His basal insulin was cut by 2 units and now he is running fairly high. It has been high in the middle of the day but lower in the morning and afternoons. PHYSICAL EXAMINATION: Physical examination is deferred. IMPRESSION: Uncontrolled diabetes. PLAN: Continue to monitor blood sugars. We may have to increase his short-acting in the middle of the day. MMODL / IJN: [id number] /
[2020-06-15 20:05] LABS: Glucose,Whole Blood 186 mg/dL (75-99)
[2020-06-15] MEDS: DULoxetine HCL 30 MG CAPSULE.DR PO SCH (20:49)
[2020-06-15] MEDS: MELATONIN 3 MG TABLET PO SCH (20:50)
[2020-06-15] MEDS: traZODone HCL 100 MG TAB PO SCH (20:50)
[2020-06-15] MEDS: LORazepam 1 MG TAB PO PRN (20:50)
[2020-06-16 07:52] LABS: Glucose,Whole Blood 248 mg/dL (75-99)
[2020-06-16] MEDS: INSULIN DETEMIR (LEVEMIR) 100 UNIT/ML SYR SQ SCH (08:12)
[2020-06-16] MEDS: INSULIN ASPART (NovoLOG) 100 UNIT/ML VIAL SQ SCH ×7 (08:12→20:17)
[2020-06-16] MEDS: GABAPENTIN 300 MG CAP PO SCH ×2 (08:12→20:20)
--- NOTE | 2020-06-16 11:21 | P.PN ---
Progress Note - Text Progress Note Date: 06/16/20 Interval History: Patient was seen this morning wandering the hallways and was directable and ag reeable to speak with copy writer in the office. Patient appears to have mildly improved hygiene and grooming. He continues to speak about his depression. He states that he has been feeling mild improvement on the medications. He did complain of some diarrhea last night and also some upset stomach and wanted to be restarted back on dicyclomine and was willing to try loperamide. He claims that he is trying to participate more in the group setting. He claims that he spoke with his dad yesterday however claims that "he is waiting on some phone calls" to still decide if he is willing to have patient be discharged to his home once he leaves the hospital. Patient is claiming that he is not having any suicidal thoughts today which she feels happy about and feels that he has more hope about his discharge and also claims that he is willing to do the intake with [facility]. He states that his anxiety has been improving on the medications. He claims that he slept poorly last night due to his frequent diarrhea which started yesterday. At this time patient denies any homical ideations, intent or plan. Patient denies any auditory, visual hallucinations and denies any paranoia or delusions. Patient denies any side effects from the medications and has been compliant with meds. Mental Status Exam: General Appearance: Patient appears to be thin, frail, older than stated age is alert, directable and superficially cooperative. Patient appears to have improving hygiene and grooming. Behavior: Patient is sitting on the chair without any agitated behavior. Speech: Patient's speech is fluent and nonpressured. Soft tone. Mood/Affect: Patient reports their mood is "a bit better" however is improving mildly, affect is congruent and constricted. Suicidality/Homicidality: Patient denies having any homicidal ideation intent or plan. He admits to improving suicidal thoughts no plan or intent. Perceptions: Patient denies any visual hallucinations and denies any auditory hallucinations Though content/process: guarded and evasive, mildly improving. Poor insight into his condition, improving mildly. Denies any delusions or paranoia. Memory and concentration: AOX3, grossly intact for the purposes of this session Judgment and insight: Chronically poor, improving mildly Assessment Major depressive disorder, recurrent, severe without psychotic features Anxiety disorder unspecified Cannabis abuse History of stimulant abuse Plan: -Patient continues to meet criteria for inpatient psychiatric admission for symptom stabilization and safety. Patient has signed adult voluntary form and medication consent and was placed in patient's chart. -Medications: Continue with trazodone 300 mg daily at bedtime for insomnia/mood. continue with Cymbalta 90 mg nighttime dosing for mood/anxiety. Increased melatonin to 10 mg daily at bedtime for insomnia. -When necessary Ativan and Haldol for agitation/aggression. -NRT - not needed as patient does not smoke. -SW on board for discharge planning. Encouraged the patient to participate in milieu. Patient currently is homeless and is currently looking into either going to live with his father or his sister upon discharge. Still waiting on confirma tion of place to go and good discharge plan as patient has a high likelihood of rehospitalization if not appropriately placed in a supportive environment. likely discharge either friday or friday once plan is confirmed and patient has his [facility] intake on the unit.
[2020-06-16 12:44] LABS: Glucose,Whole Blood 83 mg/dL (75-99)
[2020-06-16 17:43] LABS: Glucose,Whole Blood 151 mg/dL (75-99)
[2020-06-16 20:11] LABS: Glucose,Whole Blood 227 mg/dL (75-99)
[2020-06-16] MEDS: MELATONIN 3 MG TABLET PO SCH (20:19)
[2020-06-16] MEDS: traZODone HCL 100 MG TAB PO SCH (20:19)
[2020-06-16] MEDS: DULoxetine HCL 30 MG CAPSULE.DR PO SCH (20:19)
[2020-06-17 07:48] LABS: Glucose,Whole Blood 272 mg/dL (75-99)
[2020-06-17] MEDS: INSULIN ASPART (NovoLOG) 100 UNIT/ML VIAL SQ SCH ×7 (08:03→20:43)
[2020-06-17] MEDS: INSULIN DETEMIR (LEVEMIR) 100 UNIT/ML SYR SQ SCH (08:03)
[2020-06-17] MEDS: GABAPENTIN 300 MG CAP PO SCH ×2 (08:06→20:41)
--- NOTE | 2020-06-17 12:07 | P.PN ---
Progress Note - Text Progress Note Date: 06/17/20 Interval History: Patient was seen this morning laying in his bed reading his book and was direc table and agreeable to speak with jingle writer in the office. Patient appears to have mildly improved hygiene and grooming. He claims that he has been trying to go to groups and participate as best as he can. He states that he is feeling better with regards to his mood has been taking medications regularly. He was asking today about potentially going on lithium and states that it was helping him with his suicidal thoughts when he was on it before. Clinical Field Specialist explained the side effects and potential risk to his kidney and patient was agreeable to this and claims that he will be drinking more water to help his kidneys. He states that he also spoke with his dad yesterday and will be speaking again today with him to discuss him going to stay with him once he is discharged. He states that his anxiety has been improving on the medications. He claims that he slept better last night. At this time patient denies any homical ideations, intent or plan. Patient denies any auditory, visual hallucinations and denies any paranoia or delusions. Patient denies any side effects from the medications and has been compliant with meds. Mental Status Exam: General Appearance: Patient appears to be thin, frail, older than stated age is alert, directable and more cooperative today. Patient appears to have improving hygiene and grooming. Behavior: Patient is sitting on the chair without any agitated behavior. Speech: Patient's speech is fluent and nonpressured. Mood/Affect: Patient reports their mood is "better" however is improving mildly, affect is congruent and constricted. Suicidality/Homicidality: Patient denies having any homicidal ideation intent or plan. He admits to improving suicidal thoughts no plan or intent. Perceptions: Patient denies any visual hallucinations and denies any auditory hallucinations Though content/process: More logical and goal oriented today. Denies any delusions or paranoia. Memory and concentration: AOX3, grossly intact for the purposes of this session Judgment and insight: Chronically poor, improving mildly Assessment Major depressive disorder, recurrent, severe without psychotic features Anxiety disorder unspecified Cannabis abuse History of stimulant abuse Plan: -Patient continues to meet criteria for inpatient psychiatric admission for symptom stabilization and safety. Patient has signed adult voluntary form and medication consent and was placed in patient's chart. -Medications: Continue with trazodone 300 mg daily at bedtime for insomnia/mood. continue with Cymbalta 90 mg nighttime dosing for mood/anxiety. continue melatonin to 10 mg daily at bedtime for insomnia. Added lithium 150 mg daily for mood adjunct/suicidal thoughts, patient was informed of the potential side effects and risk to his kidneys and patient was agreeable to this. -When necessary Ativan and Haldol for agitation/aggression. -NRT - not needed as patient does not smoke. -SW on board for discharge planning. Encouraged the patient to participate in milieu. Still waiting on confirmation of place to go and good discharge plan as patient has a high likelihood of rehospitalization if not appropriately placed in a supportive environment. likely discharge either friday or friday once plan is confirmed and patient has his [facility] intake on the unit. Patient will likely be discharged to his father's house.
[2020-06-17 12:49] LABS: Glucose,Whole Blood 132 mg/dL (75-99)
[2020-06-17] MEDS: LITHIUM CARBONATE 150 MG CAP PO SCH (12:56)
--- NOTE | 2020-06-17 15:21 | PN ---
PROGRESS NOTE DATE OF SERVICE: 06/17/2020 CHIEF COMPLAINT: Uncontrolled diabetes. HISTORY OF PRESENT ILLNESS: This gentleman is stable, but his blood sugars are still quite erratic, at times are quite low and at other times are high. I will increase his basal insulin by 2 units and continue to follow. GRACE / TRAMN: [id number] /
[2020-06-17 17:48] LABS: Glucose,Whole Blood 221 mg/dL (75-99)
[2020-06-17 20:14] LABS: Glucose,Whole Blood 197 mg/dL (75-99)
[2020-06-17] MEDS: MELATONIN 3 MG TABLET PO SCH (20:40)
[2020-06-17] MEDS: traZODone HCL 100 MG TAB PO SCH (20:40)
[2020-06-17] MEDS: DULoxetine HCL 30 MG CAPSULE.DR PO SCH (20:41)
[2020-06-18 06:20] VITALS: RESP 18
[2020-06-18] MEDS ORDERED: INSULIN DETEMIR (LEVEMIR) 100 UNIT/ML SYR SQ SCH (07:00)
[2020-06-18 07:49] LABS: Glucose,Whole Blood 214 mg/dL (75-99)
[2020-06-18] MEDS: INSULIN ASPART (NovoLOG) 100 UNIT/ML VIAL SQ SCH ×7 (07:59→21:05)
[2020-06-18] MEDS: LITHIUM CARBONATE 150 MG CAP PO SCH (08:03)
[2020-06-18] MEDS: GABAPENTIN 300 MG CAP PO SCH ×2 (08:03→21:04)
--- NOTE | 2020-06-18 11:03 | P.PN ---
Progress Note - Text Progress Note Date: 06/18/20 Interval History: Patient was seen this morning sitting in the TV lounge speaking with other pat ients and was directable and agreeable to speak with appeals writer in the office. Patient appears to have mildly improved hygiene and grooming today and appeared to have a improvement in his affect. He claims that he has been trying to go to groups and participate as best as he can. He states that his mood has been gradually improving on the current medications. He did state that he was not able to sleep well last night due to diarrhea on and off and patient was encouraged to take Imodium if needed. He claims that the lithium he has been taking however feels that he has not felt much change as of yet however wants to consider probably increasing tomorrow. Teletypewriter Installer again explained the side effects and potential risk to his kidney and patient was agreeable to this and claims that he will be drinking more water to help his kidneys. He claims that he is still speaking with his father and also now speaking with his sister and brother who were also other potential options for him to go to once he is discharged however still waiting on more phone calls. At this time patient denies any homical ideations, intent or plan. Patient denies any auditory, visual hallucinations and denies any paranoia or delusions. Patient denies any side effects from the medications and has been compliant with meds. Mental Status Exam: General Appearance: Patient appears to be thin, frail, older than stated age is alert, directable and more cooperative today. Patient appears to have improving hygiene and grooming. Behavior: Patient is sitting on the chair without any agitated behavior. Speech: Patient's speech is fluent and nonpressured. Mood/Affect: Patient reports their mood is "a little bit better" however is improving mildly, affect is congruent Suicidality/Homicidality: Patient denies having any homicidal ideation intent or plan. He admits to improving suicidal thoughts no plan or intent. Perceptions: Patient denies any visual hallucinations and denies any auditory hallucinations Though content/process: More logical and goal oriented today. Denies any delusions or paranoia. Memory and concentration: AOX3, grossly intact for the purposes of this session Judgment and insight: Chronically poor, improving mildly Assessment Major depressive disorder, recurrent, severe without psychotic features Anxiety disorder unspecified Cannabis abuse History of stimulant abuse Plan: -Patient continues to meet criteria for inpatient psychiatric admission for symptom stabilization and safety. Patient has signed adult voluntary form and medication consent and was placed in patient's chart. -Medications: Continue with trazodone 300 mg daily at bedtime for insomnia/mood. continue with Cymbalta 90 mg nighttime dosing for mood/anxiety. continue melatonin to 10 mg daily at bedtime for insomnia. Continue with lithium 150 mg daily for mood adjunct/suicidal thoughts, patient was once again informed of the potential side effects and risk to his kidneys and patient was agreeable to this, likely increase tomorrow. -When necessary Ativan and Haldol for agitation/aggression. -NRT - not needed as patient does not smoke. -SW on board for discharge planning. Encouraged the patient to participate in milieu. Still waiting on confirmation of place to go and good discharge plan as patient has a high likelihood of rehospitalization if not appropriately placed in a supportive environment. likely discharge either friday or friday once plan is confirmed and patient has his [facility] intake on the unit. Patient will likely be discharged to his father's house or if not then his brothers or his sister's house.
[2020-06-18] MEDS: DICYCLOMINE 10 MG CAP PO PRN ×3 (12:47→22:42)
[2020-06-18] MEDS: LOPERAMIDE 2 MG CAP PO PRN ×3 (12:47→22:42)
[2020-06-18 12:53] LABS: Glucose,Whole Blood 97 mg/dL (75-99)
[2020-06-18 15:27] LABS: Glucose,Whole Blood 65 mg/dL (75-99)
[2020-06-18 15:43] LABS: Glucose,Whole Blood 58 mg/dL (75-99)
[2020-06-18 15:59] LABS: Glucose,Whole Blood 106 mg/dL (75-99)
[2020-06-18 18:03] LABS: Glucose,Whole Blood 176 mg/dL (75-99)
[2020-06-18 19:30] LABS: Glucose,Whole Blood 192 mg/dL (75-99)
[2020-06-18 20:22] LABS: Glucose,Whole Blood 198 mg/dL (75-99)
[2020-06-18] MEDS: traZODone HCL 100 MG TAB PO SCH (21:03)
[2020-06-18] MEDS: DULoxetine HCL 30 MG CAPSULE.DR PO SCH (21:03)
[2020-06-18] MEDS: MELATONIN 3 MG TABLET PO SCH (21:04)
--- NOTE | 2020-06-18 21:30 | PN ---
PROGRESS NOTE DATE OF SERVICE: 06/18/2019. CHIEF COMPLAINT: Uncontrolled diabetes. HISTORY OF PRESENT ILLNESS: This gentleman still continues to have trouble with his sugars dropping too low at times and becoming quite high at other times. His long-acting insulin will be dropped to 20 units and he will stop receiving short-acting insulin in the morning and he will continue to have 6 units before lunch and dinner. GRACE / TRAMN: [id number] /
[2020-06-18] MEDS: LORazepam 1 MG TAB PO PRN (22:42)
[2020-06-19 03:04] LABS: Glucose,Whole Blood 248 mg/dL (75-99)
[2020-06-19 06:26] VITALS: BP 104/60; PULSE 68; TEMP 97.3
[2020-06-19] MEDS ORDERED: INSULIN DETEMIR (LEVEMIR) 100 UNIT/ML SYR SQ SCH (07:00)
[2020-06-19 07:50] LABS: Glucose,Whole Blood 268 mg/dL (75-99)
[2020-06-19] MEDS: INSULIN ASPART (NovoLOG) 100 UNIT/ML VIAL SQ SCH ×2 (07:54→12:45)
[2020-06-19] MEDS: LITHIUM CARBONATE 150 MG CAP PO SCH (07:58)
[2020-06-19] MEDS: GABAPENTIN 300 MG CAP PO SCH (07:58)
[2020-06-19] MEDS: DICYCLOMINE 10 MG CAP PO PRN ×2 (07:58→11:59)
[2020-06-19] MEDS: LOPERAMIDE 2 MG CAP PO PRN ×2 (07:58→11:59)
[2020-06-19] MEDS ORDERED: LITHIUM CARBONATE 150 MG CAP PO STA (10:41)
[2020-06-19] MEDS ORDERED: INSULIN ASPART (NovoLOG) 100 UNIT/ML VIAL SQ SCH ×2 (12:30→17:30)
[2020-06-19 12:45] LABS: Glucose,Whole Blood 199 mg/dL (75-99)
--- NOTE | 2020-06-19 13:51 | P.DS ---
Providers Date of admission: 06/06/20 11:35 Expected date of discharge: 06/19/20 Attending physician: Fer Merlos MD Consults: 06/06/20 12:06 Consult Physician Routine Consulting Provider: Brown Valenzuela Consult Reason/Comments: History and Physical Do you want consulting provider notified?: Yes Primary care physician: Brown Valenzuela - Discharge Diagnosis(es) (1) Major depressive disorder, recurrent severe without psychotic features Current Visit: Yes Status: Acute Priority: High (2) Anxiety disorder, unspecified Current Visit: Yes Status: Acute Priority: Medium (3) Cannabis abuse Current Visit: Yes Status: Acute Priority: Medium Hospital Course: Admission HPI: Admission note was completed by senior technical writer "Patient is a 24-year-old male with a history of depression and type 1 diabetes currently single with no kids living with his friend. Patient presented to the ED initially with complaints of depression, suicidal ideations and hyperglycemia. Patient has a known history of diabetes mellitus with noncompliance of his medications and poor glucose control. Patient claimed in the ER that he stopped taking his insulin several weeks ago. He was initially admitted to the medical floor as with DKA and his UDS was positive for THC. Patient was seen at the bedside by psychiatry liaison on the medical floors and appeared to have poor hygiene and grooming. He had a disheveled appearance and was unshaven. He spoke of "losing my will to live". He states that he's been feeling weaker and more depressed recently. He states that he can't take care of himself any longer. He feels that he has been so depressed that he states that he stopped taking his insulin over a week ago and claims that that was his passive suicide attempt to "wither away". He claims that he called his mom and told her about not taking his medications and his mother brought him to the hospital. He claims that he has been trying to stay alive for his family and claims that he is unsure of what he will do if he is released from the hospital. He claims that he is willing to go to a detention that he was previously at if he can still get in. Today patient was seen once again by senior technical writer for psychiatric evaluation and admission. Patient appears to have mildly improved hygiene and grooming and continues to speak of feeling depressed and anxious. He states that he has been taking the Cymbalta however has not felt any difference as of yet from the medication. He continues to report anxiety and he states that he slept approximately 4 hours last night. He admits to poor appetite. He states that he's been smoking marijuana daily. He admits to ongoing suicidal thoughts however no intent or plan today. He denies any other recreational drug use and denies cigarette use. Patient denies any homicidal ideations. He denied any auditory or visual hallucinations." Hospital course: Upon admission to the unit patient was initially depressed and anxious and admitting to ongoing thoughts of suicide. Patient was however directable and agreeable to commence treatment and signed adult voluntary form. Patient was initially isolative however with treatment in time he got along well with other patients on the unit and followed unit protocol. Patient was compliant with the medications. Patient did develop some nausea and vomiting and diarrhea possibly secondary to the antidepressant medication however with time and changing it to nighttime dosing these symptoms subsided. Patient was started on Cymbalta and titrated up to a dose of 90 mg nightly for mood/anxiety, trazodone 300 mg daily at bedtime for insomnia/mood, melatonin 10 mg daily at bedtime for insomnia, lithium 300 mg daily for mood adjunct/suicidal thoughts. Warehouse Representative discussed the side effects of the medications including the lithium several times a patient about the possibility of potential harm to his kidney however patient was aware of this and verbally understood and agreed and wanted to continue on with the lithium as he was on it in the past and did well on it. Patient spoke of his stressors and engaged in therapy both group and individual. Patient was also seen by medical team for history and physical exam. Patient had a right hand x- ray for pain which showed no acute osseous abnormality which was completed on 06/09/20. Throughout the course of the hospitalization patient gradually improved with regards to mood, anxiety, sleep and became more future oriented with impr tia insight and judgment. On the day of discharge patient denied any suicidal or homicidal ideations intent or plan denied any auditory or visual hallucinations. Patient endorsed wanting to live for his health and his future. The patient denied any access to guns or weapons. Patient denied any paranoia and did not endorse any delusions. Patient does have a significant history of substance abuse and was counseled on abstaining from all substances including alcohol and marijuana. Patient elected to do outpatient substance use treatment program through [facility] and wanted to cut back use on his own. Patient was also counseled on the medications and need for regular compliance and was encouraged to follow-up with their outpatient appointment for mental health and also for primary care. plant care worker helped arrange for discharge and coordination with patient's family members as patient will be staying with his father, sister and also his brother alternating between the homes. Patient did not qualify for a detention or AFC and also was deemed not suitable for discharge to a halfway due to his high risk for rehospitalization and poor self-care in that particular environment. Mental status exam: General Appearance: Patient appears to be tall, thin, stated age is alert, pleasant, and cooperative. Patient is in no acute distress and has improved hygiene and grooming Behavior: Patient is calmly seated without any agitated behavior. Speech: Patient's speech is fluent and nonpressured. Mood/Affect: Patient reports their mood is "better", affect is congruent and euthymic. Suicidality/Homicidality: Patient denies having any suicidal or homicidal ideation intent or plan. Perceptions: Patient denies any auditory or visual hallucinations. Though content/process: There is no evidence of any delusional thought content and thought process is linear and goal-directed. more future oriented Memory and concentration: AOX3, grossly intact for the purposes of this session. Can spell "WORLD" backwards correctly. Judgment and insight: chronically poor, however has improved with guarded prognosis Impression: Major depressive disorder, recurrent, severe without psychotic features Anxiety disorder unspecified Cannabis abuse Plan: -Continue with discharge today as patient has improved and stabilized psychiatrically and is not currently an imminent threat to himself and/or othe rs. Patient will remain at chronically elevated risk for harm to self and/or others due to his impulsivity, chronically poor insight and judgment and substance abuse. -Continue medications: Continue with Cymbalta 90 mg daily at bedtime for mood/anxiety, trazodone 300 mg daily at bedtime for insomnia/mood, lithium 300 mg daily for mood adjunct/suicidal thoughts. Melatonin 10 mg daily at bedtime for insomnia -Patients insulin was adjusted by his PCP prior to discharge. -Patient was counseled on the need for medication compliance and appropriate follow-up at mental health and also primary care for medical issues. Patient verbalized understanding and agreed. -Social work help to coordinate patient's discharge today as patient will be staying with an alternating between his family members including his sister, brother and father's house. Patient was not deemed suitable to go to a halfway and was not approved to go to a detention/AFC. Patient will have his [facility] intake on the mental health unit prior to discharge. Social work also to arrange for patients follow up appointments with [facility] for psychiatric care along with follow up with primary care provider. -Patient counseled on abstaining from recreational drugs and marijuana and alcohol. Was informed/educated on the adverse effects on their physical and mental health. Patient verbally agreed and understood. -Patient was instructed to return to the hospital or seek immediate medical care if their psychiatric or medical symptoms do worsen or reoccur. Allergies Allergy/AdvReac Type Severity Reaction Status Date / Time No Known Allergies Allergy Verified 06/06/20 11:42 Laboratory Results Sodium 136 mmol/L (137-145) L 06/07/20 07:14 Potassium 4.8 mmol/L (3.5-5.1) 06/07/20 07:14 Chloride 99 mmol/L (98-107) 06/07/20 07:14 Carbon Dioxide 34 mmol/L (22-30) H 06/07/20 07:14 Anion Gap 3 mmol/L 06/07/20 07:14 BUN 24 mg/dL (9-20) H 06/07/20 07:14 Creatinine 0.58 mg/dL (0.66-1.25) L 06/07/20 07:14 Est GFR (CKD-EPI)AfAm >90 (>60 ml/min/1.73 sqM) 06/07/20 07:14 Est GFR (CKD-EPI)NonAf >90 (>60 ml/min/1.73 sqM) 06/07/20 07:14 Glucose 344 mg/dL (74-99) H 06/07/20 07:14 POC Glucose (mg/dL) 199 mg/dL (75-99) H 06/19/20 12:43 POC Glu Interior Design Principal ID Perico Prater 06/19/20 12:[address] Glu mg/dL 303 06/07/20 07:14 Hemoglobin A1c 12.2 % (4.0-6.0) H 06/07/20 07:14 Calcium 9.0 mg/dL (8.4-10.2) 06/07/20 07:14 Total Bilirubin 0.4 mg/dL (0.2-1.3) 06/07/20 07:14 Conjugated Bilirubin 0.0 mg/dL (0.0-0.3) 06/07/20 07:14 Unconjugated Bilirubin 0.2 mg/dL (0.0-1.1) 06/07/20 07:14 Delta Bilirubin 0.2 mg/dL (0.0-0.2) 06/07/20 07:14 AST 27 U/L (17-59) 06/07/20 07:14 ALT 27 U/L (4-49) 06/07/20 07:14 Alkaline Phosphatase 56 U/L (38-126) 06/07/20 07:14 Total Protein 6.1 g/dL (6.3-8.2) L 06/07/20 07:14 Albumin 3.8 g/dL (3.5-5.0) 06/07/20 07:14 Triglycerides 107 mg/dL (<150) 06/07/20 07:14 Cholesterol 141 mg/dL (<200) 06/07/20 07:14 LDL Cholesterol, Calc 73 mg/dL (0-99) 06/07/20 07:14 HDL Cholesterol 47 mg/dL (40-60) 06/07/20 07:14 Urine Color Light Yellow 06/11/20 15:00 Urine Appearance Clear (Clear) 06/11/20 15:00 Urine pH 5.0 (5.0-8.0) 06/11/20 15:00 Ur Specific [place] 1.023 (1.001-1.035) 06/11/20 15:00 Urine Protein Negative (Negative) 06/11/20 15:00 Urine Glucose (UA) 4+ (Negative) H 06/11/20 15:00 Urine Ketones Negative (Negative) 06/11/20 15:00 Urine Blood Negative (Negative) 06/11/20 15:00 Urine Nitrite Negative (Negative) 06/11/20 15:00 Urine Bilirubin Negative (Negative) 06/11/20 15:00 Urine Urobilinogen <2.0 mg/dL (<2.0) 06/11/20 15:00 Ur Leukocyte Esterase Negative (Negative) 06/11/20 15:00 Vital Signs Temp 97.3 F L 06/19/20 06:08 Pulse 68 06/19/20 06:08 Resp 18 06/19/20 06:08 BP 104/60 06/19/20 06:08 Pulse Ox 99 06/15/20 18:29 Intake & Output 06/18/20 06/19/20 06/19/20 18:59 06:59 18:59 Weight 67.1 kg Patient Condition at Discharge: Stable Plan - Discharge Summary New Discharge Prescriptions: New Dicyclomine [Bentyl] 10 mg PO QID PRN 30 Days cap PRN Reason: Dyspepsia DULoxetine HCL [Cymbalta] 90 mg PO HS 30 Days capsule. traZODone HCL [Desyrel] 300 mg PO HS 30 Days tab Loperamide [Imodium] 2 mg PO TID PRN 30 Days cap PRN Reason: Diarrhea Insulin Detemir (Levemir) [Levemir] 20 unit SQ DAILY@0700 30 Days syr [place] Carbonate 300 mg PO DAILY 30 Days cap Melatonin 6 mg PO HS 30 Days tablet INSULIN ASPART (NovoLOG) [NovoLOG (formulary)] 6 unit SQ AC-SUPPER 30 Days vial INSULIN ASPART (NovoLOG) [NovoLOG (formulary)] 6 unit SQ AC-LUNCH 30 Days vial Cholestyramine (with Sugar) [Questran Packet] 4 gm PO 0700,1700 30 Days packet Continue Gabapentin [Neurontin] 600 mg PO BID 14 Days tab Discontinued Insulin Lispro [Admelog Solostar] 10 units SQ AC-TID #1 box Insulin Glargine,Hum.rec.anlog [Basaglar Kwikpen U-100] 20 unit SQ AC-BRKFST #1 box traZODone HCL [Desyrel] 100 - 200 mg PO HS Discharge Medication List Cholestyramine (with Sugar) [Questran Packet] 4 gm PO 0700,1700 30 Days packet 06/19/20 [Rx] DULoxetine HCL [Cymbalta] 90 mg PO HS 30 Days capsule. 06/19/20 [Rx] Dicyclomine [Bentyl] 10 mg PO QID PRN 30 Days cap 06/19/20 [Rx] Gabapentin [Neurontin] 600 mg PO BID 14 Days tab 06/19/20 [Rx] INSULIN ASPART (NovoLOG) [NovoLOG (formulary)] 6 unit SQ AC-LUNCH 30 Days vial 06/19/20 [Rx] INSULIN ASPART (NovoLOG) [NovoLOG (formulary)] 6 unit SQ AC-SUPPER 30 Days vial 06/19/20 [Rx] Insulin Detemir (Levemir) [Levemir] 20 unit SQ DAILY@0700 30 Days syr 06/19/20 [Rx] [place] Carbonate 300 mg PO DAILY 30 Days cap 06/19/20 [Rx] Loperamide [Imodium] 2 mg PO TID PRN 30 Days cap 06/19/20 [Rx] Melatonin 6 mg PO HS 30 Days tablet 06/19/20 [Rx] traZODone HCL [Desyrel] 300 mg PO HS 30 Days tab 06/19/20 [Rx] Follow up Appointment(s)/Referral(s): [facility] [Outside] - 06/26/20 1:00 pm (Gregoria Rubio over the phone) Brown Valenzuela MD [Primary Care Provider] - 1 Week Patient Instructions/Handouts: Help Prevent Suicide (DC) Activity/Diet/Wound Care/Special Instructions: Activity and diet as tolerated. Avoid the use of street drugs and alcohol. Take all medications as prescribed. When you are in need of refills on your medications please contact your medical provider and/or outpatient psychiatrist to have this done. Please go to scheduled outpatient appointment for aftercare treatment. If symptoms return or become worse, call the crisis line at and/or go to the nearest emergency room for evaluation. Discharge Disposition: HOME SELF-CARE
[2020-06-19] MEDS ORDERED: CHOLESTYRAMINE (WITH SUGAR) 4 GM PACKET PO SCH (17:00)
[2020-06-20] MEDS ORDERED: LITHIUM CARBONATE 300 MG CAP PO SCH (09:00)
== END 2020-06-19 14:10 | disposition home or self-care (01) | DRG 885 ==
LOC: 3MHU 11:35
PROVIDERS: ADMIT Psychiatry & Neurology Psychiatry; ATTEND Psychiatry & Neurology Psychiatry
DX: F33.2 Major depressive disorder, recurrent severe without psychotic features (principal); R45.851 Suicidal ideations; E10.43 Type 1 diabetes mellitus with diabetic autonomic (poly)neuropathy; K31.84 Gastroparesis; E10.65 Type 1 diabetes mellitus with hyperglycemia; Z79.4 Long term (current) use of insulin; F15.11 Other stimulant abuse, in remission; Z91.128 Patient's intentional underdosing of medication regimen for other reason; R54 Age-related physical debility; T50.906A Underdosing of unspecified drugs, medicaments and biological substances, initial encounter; G47.00 Insomnia, unspecified; J45.909 Unspecified asthma, uncomplicated; L98.9 Disorder of the skin and subcutaneous tissue, unspecified; F41.9 Anxiety disorder, unspecified; F12.10 Cannabis abuse, uncomplicated; K30 Functional dyspepsia; R19.7 Diarrhea, unspecified; R45.87 Impulsiveness; Z79.899 Other long term (current) drug therapy; Z91.5 Personal history of self-harm; Z59.0 Homelessness; W22.01XA Walked into wall, initial encounter
CPT/HCPCS: 80053; 80061; 81003; 82248; 83036

== ENCOUNTER 2020-08-27 08:50 | Observation (INO) | payer OTHER ==
[2020-08-27 09:00] LABS: Glucose,Whole Blood 230 mg/dL (75-99)
[2020-08-27] MEDS ORDERED: METOCLOPRAMIDE 5 MG/ML 2 ML VIAL IVP STA (09:10)
[2020-08-27] MEDS ORDERED: SODIUM CHLORIDE 0.9% 1,000 ML IV STA (09:10)
--- NOTE | 2020-08-27 09:18 | ED ---
Nausea/Vomiting/Diarrhea HPI - General Chief complaint: Nausea/Vomiting/Diarrhea Stated complaint: nausea, vomiting Time Seen by Provider: 08/27/20 08:55 Source: patient Mode of arrival: EMS Limitations: no limitations - History of Present Illness Initial comments: Patient is a 25-year-old male, history of type 1 diabetes, presenting to the emergency Department with complaints of nausea and vomiting for the past 3 days. Patient is well-known to this ER, also admissions for DKA and mental health issues. Patient states he has been taking his insulin. He denies any abdominal pain, no chest pain or shortness of breath, no fevers or chills. He denies any suicidal or homicidal thoughts. He has no further complaints at this time. Upon arrival to the ER, he has slightly tachycardia at 107, blood glucose is 230. - Related Data Home Medications Medication Instructions Recorded Confirmed INSULIN ASPART (NovoLOG) [NovoLOG 10 unit SQ AC-TID 08/27/20 08/27/20 (formulary)] Insulin Detemir (Levemir) [Levemir] 25 unit SQ DAILY 08/27/20 08/27/20 Allergies Allergy/AdvReac Type Severity Reaction Status Date / Time No Known Allergies Allergy Verified 08/27/20 12:55 Review of Systems ROS Statement: Those systems with pertinent positive or pertinent negative responses have been documented in the HPI. ROS Other: All systems not noted in ROS Statement are negative. Past Medical History Past Medical History: Asthma, Diabetes Mellitus, Skin Disorder Additional Past Medical History / Comment(s): IDDM type I, neuropathy bilateral feet, DKA, eczema. History of multiple psychiatric hospitalizations or suicide attempts. History of Any Multi-Drug Resistant Organisms: None Reported Past Surgical History: Adenoidectomy Additional Past Surgical History / Comment(s): 2002 Past Anesthesia/Blood Transfusion Reactions: No Reported Reaction Past Psychological History: Anxiety, Depression Smoking Status: Former smoker Past Alcohol Use History: Occasional Past Drug Use History: Marijuana - Past Family History Mother Family Medical History: CVA/TIA Father Family Medical History: Hyperlipidemia, Hypertension Additional Family Medical History / Comment(s): . General Exam - General Exam Comments Initial Comments: GENERAL: Patient is well-developed and well-nourished. Patient is nontoxic and in mild distress. HEAD: Atraumatic, normocephalic. EYES: Pupils equal round and reactive to light, extraocular movements intact, sclera anicteric, conjunctiva are normal. Eyelids were unremarkable. ENT: TMs normal, nares patent, oropharynx clear without exudates. Moist mucous membranes. NECK: Normal range of motion, supple without lymphadenopathy or JVD. LUNGS: Unlabored respirations. Breath sounds clear to auscultation bilaterally and equal. No wheezes rales or rhonchi. HEART: Tachycardia rate and rhythm without murmurs, rubs or gallops. ABDOMEN: Soft, nontender, normoactive bowel sounds. No guarding, no rebound. No masses appreciated. : Deferred MUSCULOSKELETAL: Normal extremities with adequate strength and normal range of motion, no pitting or edema. No clubbing or cyanosis. NEUROLOGICAL: Patient is alert and oriented x 3. Motor and sensory are also intact. Cranial nerves II through XII grossly intact. Symmetrical smile. Normal speech, normal gait. PSYCH: Normal mood, normal affect. SKIN: Warm, Dry, normal turgor, no rashes or lesions noted. Limitations: no limitations Course Vital Signs 08/27/20 08/27/20 08:56 11:38 Temperature 98.7 F Pulse Rate 107 H 118 H Respiratory 24 20 Rate Blood Pressure 150/104 139/87 O2 Sat by Pulse 99 99 Oximetry Medical Decision Making - Medical Decision Making Patient is 25-year-old male with history of diabetes, DKA, presenting with abril sea and vomiting 3 days. He is slightly tachycardia on arrival, blood glucose is 230. Labs show a normal white count, VBG reveals 7.27 pH, bicarb is 11. Glucose is 224. Acetone is positive, urine shows 4+ glucose and 4+ ketones. Patient was given 1 L of fluids. Patient will be admitted for DKA, D5 normal saline was started as well as insulin drip, to Dr. Valenzuela. Case discussed with Dr. Villela. - Lab Data Result diagrams: 08/27/20 09:12 08/27/20 09:12 Lab Results 08/27/20 08/27/20 08/27/20 Range/Units 08:59 09:12 09:12 WBC 9.0 (3.8-10.6) k/uL RBC 5.19 (4.30-5.90) m/uL Hgb 16.2 (13.0-17.5) gm/dL Hct 47.5 (39.0-53.0) % MCV 91.5 (80.0-100.0) fL MCH 31.2 (25.0-35.0) pg MCHC 34.1 (31.0-37.0) g/dL RDW 12.4 (11.5-15.5) % Plt Count 320 (150-450) k/uL MPV 6.6 Neutrophils % 71 % Lymphocytes % 20 % Monocytes % 6 % Eosinophils % 0 % Basophils % 0 % Neutrophils # 6.4 (1.3-7.7) k/uL Lymphocytes # 1.8 (1.0-4.8) k/uL Monocytes # 0.6 (0-1.0) k/uL Eosinophils # 0.0 (0-0.7) k/uL Basophils # 0.0 (0-0.2) k/uL VBG pH (7.31-7.41) VBG pCO2 (37-51) mmHg VBG HCO3 (24-28) mmol/L Sodium 140 (137-145) mmol/L Potassium 4.1 (3.5-5.1) mmol/L Chloride 104 (98-107) mmol/L Carbon Dioxide 10 L (22-30) mmol/L Anion Gap 26 mmol/L BUN 13 (9-20) mg/dL Creatinine 0.78 (0.66-1.25) mg/dL Est GFR (CKD-EPI)AfAm >90 (>60 ml/min/1.73 sqM) Est GFR (CKD-EPI)NonAf >90 (>60 ml/min/1.73 sqM) Glucose 285 H (74-99) mg/dL POC Glucose (mg/dL) 230 H (75-99) mg/dL POC Glu Communications Equipment Operator ID Zafar Malone Plasma Lactic Acid Len (0.7-2.0) mmol/L Calcium 9.7 (8.4-10.2) mg/dL Total Bilirubin 1.1 (0.2-1.3) mg/dL AST 13 L (17-59) U/L ALT 10 (4-49) U/L Alkaline Phosphatase 103 (38-126) U/L Total Protein 7.3 (6.3-8.2) g/dL Albumin 4.8 (3.5-5.0) g/dL Urine Color Urine Appearance (Clear) Urine pH (5.0-8.0) Ur Specific [place] (1.001-1.035) Urine Protein (Negative) Urine Glucose (UA) (Negative) Urine Ketones (Negative) Urine Blood (Negative) Urine Nitrite (Negative) Urine Bilirubin (Negative) Urine Urobilinogen (<2.0) mg/dL Ur Leukocyte Esterase (Negative) Urine RBC (0-5) /hpf Urine WBC (0-5) /hpf Urine Mucus (None) /hpf Acetone, Qual Positive (Negative) 08/27/20 08/27/20 08/27/20 Range/Units 09:12 11:24 11:38 WBC (3.8-10.6) k/uL RBC (4.30-5.90) m/uL Hgb (13.0-17.5) gm/dL Hct (39.0-53.0) % MCV (80.0-100.0) fL MCH (25.0-35.0) pg MCHC (31.0-37.0) g/dL RDW (11.5-15.5) % Plt Count (150-450) k/uL MPV Neutrophils % % Lymphocytes % % Monocytes % % Eosinophils % % Basophils % % Neutrophils # (1.3-7.7) k/uL Lymphocytes # (1.0-4.8) k/uL Monocytes # (0-1.0) k/uL Eosinophils # (0-0.7) k/uL Basophils # (0-0.2) k/uL VBG pH 7.27 L (7.31-7.41) VBG pCO2 24 L (37-51) mmHg VBG HCO3 11 L (24-28) mmol/L Sodium (137-145) mmol/L Potassium (3.5-5.1) mmol/L Chloride (98-107) mmol/L Carbon Dioxide (22-30) mmol/L Anion Gap mmol/L BUN (9-20) mg/dL Creatinine (0.66-1.25) mg/dL Est GFR (CKD-EPI)AfAm (>60 ml/min/1.73 sqM) Est GFR (CKD-EPI)NonAf (>60 ml/min/1.73 sqM) Glucose (74-99) mg/dL POC Glucose (mg/dL) (75-99) mg/dL POC Glu Communications Equipment Operator ID Plasma Lactic Acid Len 1.6 (0.7-2.0) mmol/L Calcium (8.4-10.2) mg/dL Total Bilirubin (0.2-1.3) mg/dL AST (17-59) U/L ALT (4-49) U/L Alkaline Phosphatase (38-126) U/L Total Protein (6.3-8.2) g/dL Albumin (3.5-5.0) g/dL Urine Color Light Yellow Urine Appearance Clear (Clear) Urine pH 5.5 (5.0-8.0) Ur Specific [place] 1.031 (1.001-1.035) Urine Protein 1+ H (Negative) Urine Glucose (UA) 4+ H (Negative) Urine Ketones 4+ H (Negative) Urine Blood Negative (Negative) Urine Nitrite Negative (Negative) Urine Bilirubin Negative (Negative) Urine Urobilinogen <2.0 (<2.0) mg/dL Ur Leukocyte Esterase Negative (Negative) Urine RBC <1 (0-5) /hpf Urine WBC <1 (0-5) /hpf Urine Mucus Rare H (None) /hpf Acetone, Qual (Negative) 08/27/20 Range/Units 11:42 WBC (3.8-10.6) k/uL RBC (4.30-5.90) m/uL Hgb (13.0-17.5) gm/dL Hct (39.0-53.0) % MCV (80.0-100.0) fL MCH (25.0-35.0) pg MCHC (31.0-37.0) g/dL RDW (11.5-15.5) % Plt Count (150-450) k/uL MPV Neutrophils % % Lymphocytes % % Monocytes % % Eosinophils % % Basophils % % Neutrophils # (1.3-7.7) k/uL Lymphocytes # (1.0-4.8) k/uL Monocytes # (0-1.0) k/uL Eosinophils # (0-0.7) k/uL Basophils # (0-0.2) k/uL VBG pH (7.31-7.41) VBG pCO2 (37-51) mmHg VBG HCO3 (24-28) mmol/L Sodium (137-145) mmol/L Potassium (3.5-5.1) mmol/L Chloride (98-107) mmol/L Carbon Dioxide (22-30) mmol/L Anion Gap mmol/L BUN (9-20) mg/dL Creatinine (0.66-1.25) mg/dL Est GFR (CKD-EPI)AfAm (>60 ml/min/1.73 sqM) Est GFR (CKD-EPI)NonAf (>60 ml/min/1.73 sqM) Glucose (74-99) mg/dL POC Glucose (mg/dL) 224 H (75-99) mg/dL POC Glu Communications Equipment Operator Mateo Eric Plasma Lactic Acid Len (0.7-2.0) mmol/L Calcium (8.4-10.2) mg/dL Total Bilirubin (0.2-1.3) mg/dL AST (17-59) U/L ALT (4-49) U/L Alkaline Phosphatase (38-126) U/L Total Protein (6.3-8.2) g/dL Albumin (3.5-5.0) g/dL Urine Color Urine Appearance (Clear) Urine pH (5.0-8.0) Ur Specific [place] (1.001-1.035) Urine Protein (Negative) Urine Glucose (UA) (Negative) Urine Ketones (Negative) Urine Blood (Negative) Urine Nitrite (Negative) Urine Bilirubin (Negative) Urine Urobilinogen (<2.0) mg/dL Ur Leukocyte Esterase (Negative) Urine RBC (0-5) /hpf Urine WBC (0-5) /hpf Urine Mucus (None) /hpf Acetone, Qual (Negative) Critical Care Time Critical Care Time: Yes Total Critical Care Time: 35 (Patient is in DKA, insulin drip started, patient admitted.) Disposition Clinical Impression: DKA (diabetic ketoacidoses) Disposition: ADMITTED IP TO THIS [facility] Condition: Stable Referrals: Brown Valenzuela MD [Primary Care Provider] - 1-2 days Decision Date: 08/27/20 Decision Time: 12:31
[2020-08-27 09:28] LABS: Basophils % (A) 0 %; Eosinophils % (A) 0 %; HCT 47.5 % (39.0-53.0); HGB 16.2 gm/dL (13.0-17.5); Lymphocytes # (A) 1.8 k/uL (1.0-4.8); Lymphocytes % (A) 20 %; MCH 31.2 pg (25.0-35.0); MCHC 34.1 g/dL (31.0-37.0); MCV 91.5 fL (80.0-100.0); Mean Platelet Volume 6.6; Monocytes # (A) 0.6 k/uL (0-1.0); Monocytes % (A) 6 %; Neutrophils # (A) 6.4 k/uL (1.3-7.7); Neutrophils % (A) 71 %; Platelet Count 320 k/uL (150-450); RBC 5.19 m/uL (4.30-5.90); RDW 12.4 % (11.5-15.5)
[2020-08-27 09:46] LABS: ALT 10 U/L (4-49); AST 13 U/L (17-59); African American GFR (CKD) >90 (>60 ml/min/1.73 sqM); Albumin 4.8 g/dL (3.5-5.0); Alkaline Phosphatase 103 U/L (38-126); Anion Gap 26 mmol/L; Blood Urea Nitrogen 13 mg/dL (9-20); Calcium 9.7 mg/dL (8.4-10.2); Carbon Dioxide 10 mmol/L (22-30); Chloride 104 mmol/L (98-107); Glucose 285 mg/dL (74-99); Non-African American GFR(CKD) >90 (>60 ml/min/1.73 sqM); Potassium 4.1 mmol/L (3.5-5.1); Sodium 140 mmol/L (137-145); Total Bilirubin 1.1 mg/dL (0.2-1.3); Total Protein 7.3 g/dL (6.3-8.2)
[2020-08-27] MEDS ORDERED: ONDANSETRON 4 MG/2 ML VIAL IVP STA (11:31)
[2020-08-27 11:42] LABS: Appearance,Urine Clear (Clear); Bilirubin,Urine Negative (Negative); Blood,Urine Negative (Negative); Color,Urine Light Yellow; Glucose,Urine (UA) 4+ (Negative); Leukocyte Esterase,Urine Negative (Negative); Mucus,Urine Rare /hpf; Nitrite,Urine Negative (Negative); PH, Urine 5.5 (5.0-8.0); Protein,Urine 1+ (Negative); RBC,Urine <1 /hpf (0-5); Specific Gravity,Urine 1.031 (1.001-1.035); Urobilinogen,Urine <2.0 mg/dL (<2.0); WBC,Urine <1 /hpf (0-5)
[2020-08-27 11:44] LABS: Glucose,Whole Blood 224 mg/dL (75-99)
[2020-08-27 11:52] LABS: VBG PH 7.27 (7.31-7.41)
[2020-08-27 12:01] LABS: Ketones,Urine 4+ (Negative)
[2020-08-27] MEDS: D5-0.45% NACL WITH KCL 20MEQ/L 1,000 ML IV SCH ×2 (13:13→20:20)
[2020-08-27] MEDS: INSULIN REGULAR 100 UNIT in SODIUM CHLORIDE 0.9% 100 ML IV SCH (13:18)
[2020-08-27 14:28] LABS: Glucose,Whole Blood 225 mg/dL (75-99)
[2020-08-27 15:35] LABS: Glucose,Whole Blood 162 mg/dL (75-99)
[2020-08-27 16:54] LABS: Glucose,Whole Blood 101 mg/dL (75-99)
[2020-08-27 17:28] LABS: African American GFR (CKD) >90 (>60 ml/min/1.73 sqM); Anion Gap 16 mmol/L; Blood Urea Nitrogen 13 mg/dL (9-20); Carbon Dioxide 16 mmol/L (22-30); Chloride 109 mmol/L (98-107); Glucose 100 mg/dL (74-99); Non-African American GFR(CKD) >90 (>60 ml/min/1.73 sqM); Phosphorus 1.8 mg/dL (2.5-4.5); Potassium 3.7 mmol/L (3.5-5.1); Sodium 141 mmol/L (137-145)
[2020-08-27 18:13] LABS: Glucose,Whole Blood 117 mg/dL (75-99)
[2020-08-27 18:37] LABS: Glucose,Whole Blood 133 mg/dL (75-99)
[2020-08-27 21:11] LABS: African American GFR (CKD) >90 (>60 ml/min/1.73 sqM); Anion Gap 13 mmol/L; Blood Urea Nitrogen 14 mg/dL (9-20); Carbon Dioxide 20 mmol/L (22-30); Chloride 108 mmol/L (98-107); Glucose 107 mg/dL (74-99); Non-African American GFR(CKD) >90 (>60 ml/min/1.73 sqM); Phosphorus 2.3 mg/dL (2.5-4.5); Sodium 141 mmol/L (137-145)
[2020-08-27 21:32] LABS: Glucose,Whole Blood 92 mg/dL (75-99)
[2020-08-27] MEDS: ONDANSETRON 4 MG/2 ML VIAL IVP PRN (21:34)
[2020-08-27 22:09] LABS: Glucose,Whole Blood 113 mg/dL (75-99)
[2020-08-27 23:42] LABS: Glucose,Whole Blood 181 mg/dL (75-99)
[2020-08-28 00:47] LABS: Glucose,Whole Blood 219 mg/dL (75-99)
[2020-08-28 01:37] LABS: Glucose,Whole Blood 194 mg/dL (75-99)
[2020-08-28] MEDS: D5-0.45% NACL WITH KCL 20MEQ/L 1,000 ML IV SCH ×4 (02:32→22:06)
[2020-08-28 02:37] LABS: Glucose,Whole Blood 166 mg/dL (75-99)
[2020-08-28 03:42] LABS: Glucose,Whole Blood 168 mg/dL (75-99)
[2020-08-28] MEDS: ONDANSETRON 4 MG/2 ML VIAL IVP PRN (04:04)
[2020-08-28] MEDS: INSULIN REGULAR 100 UNIT in SODIUM CHLORIDE 0.9% 100 ML IV SCH ×2 (04:41→21:44)
[2020-08-28 04:46] LABS: Glucose,Whole Blood 138 mg/dL (75-99)
[2020-08-28 05:29] LABS: Basophils % (A) 0 %; Eosinophils # (A) 0.1 k/uL (0-0.7); Eosinophils % (A) 1 %; HCT 42.2 % (39.0-53.0); HGB 14.6 gm/dL (13.0-17.5); Lymphocytes # (A) 2.1 k/uL (1.0-4.8); Lymphocytes % (A) 24 %; MCH 31.5 pg (25.0-35.0); MCHC 34.7 g/dL (31.0-37.0); MCV 90.9 fL (80.0-100.0); Mean Platelet Volume 6.6; Monocytes # (A) 0.6 k/uL (0-1.0); Monocytes % (A) 6 %; Neutrophils # (A) 5.8 k/uL (1.3-7.7); Neutrophils % (A) 67 %; Platelet Count 311 k/uL (150-450); RBC 4.64 m/uL (4.30-5.90); WBC 8.7 k/uL (3.8-10.6)
[2020-08-28 05:35] LABS: ALT 8 U/L (4-49); AST 13 U/L (17-59); African American GFR (CKD) >90 (>60 ml/min/1.73 sqM); Alkaline Phosphatase 73 U/L (38-126); Anion Gap 14 mmol/L; Blood Urea Nitrogen 14 mg/dL (9-20); Carbon Dioxide 19 mmol/L (22-30); Chloride 106 mmol/L (98-107); Glucose 150 mg/dL (74-99); Non-African American GFR(CKD) >90 (>60 ml/min/1.73 sqM); Potassium 3.7 mmol/L (3.5-5.1); Sodium 139 mmol/L (137-145); Total Bilirubin 0.7 mg/dL (0.2-1.3); Total Protein 6.5 g/dL (6.3-8.2)
[2020-08-28 05:39] LABS: Glucose,Whole Blood 151 mg/dL (75-99)
[2020-08-28 06:39] LABS: Glucose,Whole Blood 169 mg/dL (75-99)
[2020-08-28 07:53] LABS: Glucose,Whole Blood 190 mg/dL (75-99)
[2020-08-28 08:47] LABS: Glucose,Whole Blood 214 mg/dL (75-99)
[2020-08-28 09:48] LABS: Glucose,Whole Blood 218 mg/dL (75-99)
[2020-08-28 10:50] LABS: Glucose,Whole Blood 215 mg/dL (75-99)
[2020-08-28 11:57] LABS: Glucose,Whole Blood 198 mg/dL (75-99)
[2020-08-28 12:52] LABS: Glucose,Whole Blood 208 mg/dL (75-99)
[2020-08-28 13:47] LABS: Glucose,Whole Blood 192 mg/dL (75-99)
[2020-08-28 14:56] LABS: Glucose,Whole Blood 195 mg/dL (75-99)
[2020-08-28 15:59] LABS: Glucose,Whole Blood 205 mg/dL (75-99)
[2020-08-28 16:50] LABS: ALT 8 U/L (4-49); AST 15 U/L (17-59); African American GFR (CKD) >90 (>60 ml/min/1.73 sqM); Albumin 3.4 g/dL (3.5-5.0); Alkaline Phosphatase 68 U/L (38-126); Anion Gap 8 mmol/L; Blood Urea Nitrogen 10 mg/dL (9-20); Calcium 8.4 mg/dL (8.4-10.2); Carbon Dioxide 24 mmol/L (22-30); Chloride 101 mmol/L (98-107); Glucose 216 mg/dL (74-99); Non-African American GFR(CKD) >90 (>60 ml/min/1.73 sqM); Potassium 3.7 mmol/L (3.5-5.1); Sodium 133 mmol/L (137-145); Total Bilirubin 0.6 mg/dL (0.2-1.3); Total Protein 5.7 g/dL (6.3-8.2)
[2020-08-28] MEDS: INSULIN DETEMIR (LEVEMIR) 100 UNIT/ML SYR SQ SCH (17:12)
[2020-08-28] MEDS ORDERED: INSULIN ASPART (NovoLOG) 100 UNIT/ML VIAL SQ SCH (17:30)
--- NOTE | 2020-08-28 20:27 | HP ---
HISTORY AND PHYSICAL CHIEF COMPLAINT: Vomiting and DKA. HISTORY OF PRESENT ILLNESS: This is another of numerous admissions for this uncontrolled 25-year-old white male type 1 diabetic. For whatever various reasons, he becomes depressed and stops taking his medications and comes in with DKA. He recently moved to [place], where he was hoping to be in a more stable living condition where he would be able to maintain himself a little bit better. Recently I received a report that he was in a [facility] hospital for DKA. He came in again this time with a blood sugar over of 400 and vomiting. REVIEW OF SYSTEMS: He has had no headache, chest pain, abdominal pain, fever, chills, etc. Past medical history, family history, and personal and social histories are all otherwise unremarkable or unchanged. He is supposed to be on a basal bolus program, but is not. PHYSICAL EXAMINATION: Blood pressure is 116/68 with a pulse of 99, respirations of 38, and he is afebrile. In general he appeared to be slender and he was nauseated and vomiting. Head, ears, eyes, nose, mouth and throat were normal. Neck was supple. Chest was clear. Cardiac exam demonstrated sinus tachycardia. The abdomen was flat, soft and non-tender. Extremities were normal. Neurologically he is intact. He is admitted to the hospital with the diagnoses: 1. Diabetic ketoacidosis. 2. Depression. PLAN: 1. Bedrest. 2. IV fluids. 3. DKA protocol. MMODL / IJN: [id number] /
--- NOTE | 2020-08-28 20:35 | PN ---
PROGRESS NOTE DATE OF SERVICE: 08/28/2020 CHIEF COMPLAINT: DKA and vomiting. HISTORY OF PRESENT ILLNESS: This gentleman is still nauseated, vomiting, and he refuses to eat. He is also refusing his short-acting insulin. His blood sugar is down to 205 and his gap is down to 14. PHYSICAL EXAMINATION: Chest is clear. Cardiac exam is normal. Abdomen is soft. IMPRESSION: 1. Diabetic ketoacidosis. 2. Dehydration. 3. Depression. 4. Personality disorder. PLAN: Add sliding scale to his Lantus or Levemir and keep him overnight. MMODL / IJN: [id number] /
[2020-08-28] MEDS: INSULIN ASPART (NovoLOG) 100 UNIT/ML VIAL SQ SCH (22:06)
[2020-08-28 22:08] LABS: Glucose,Whole Blood 179 mg/dL (75-99)
[2020-08-29] MEDS: ONDANSETRON 4 MG/2 ML VIAL IVP PRN (02:10)
[2020-08-29 07:36] LABS: Glucose,Whole Blood 181 mg/dL (75-99)
[2020-08-29] MEDS: INSULIN DETEMIR (LEVEMIR) 100 UNIT/ML SYR SQ SCH (08:46)
[2020-08-29] MEDS: INSULIN ASPART (NovoLOG) 100 UNIT/ML VIAL SQ SCH ×4 (08:49→21:23)
[2020-08-29] MEDS: D5-0.45% NACL WITH KCL 20MEQ/L 1,000 ML IV SCH ×3 (08:50→19:55)
[2020-08-29 13:14] VITALS: BMI 21.3
[2020-08-29 13:43] LABS: Glucose,Whole Blood 185 mg/dL (75-99)
[2020-08-29] MEDS ORDERED: D5-0.45% NACL WITH KCL 20MEQ/L 1,000 ML IV SCH (15:45)
[2020-08-29 17:13] LABS: Glucose,Whole Blood 225 mg/dL (75-99)
[2020-08-29 20:58] LABS: Glucose,Whole Blood 245 mg/dL (75-99)
--- NOTE | 2020-08-29 23:07 | PN ---
PROGRESS NOTE DATE OF SERVICE: 08/29/2020 CHIEF COMPLAINT: Dehydration and DKA. HISTORY OF PRESENT ILLNESS: This gentleman is still nauseated. He is not vomiting. His sugars are under better control. He refuses to take a regular dose of short-acting insulin and is on a scale. PHYSICAL EXAMINATION: He is still dehydrated. Chest is clear. The cardiac exam is normal. The abdomen is soft, nontender. IMPRESSION: 1. Diabetic ketoacidosis. 2. Nausea. 3. Depression. PLAN: 1. Progress activity and diet. 2. Continue with his insulin management. 3. He was offered psychiatric consultation but refuses. MMODL / IJN: [id number] /
[2020-08-30 06:38] LABS: Glucose,Whole Blood 171 mg/dL (75-99)
[2020-08-30] MEDS: INSULIN DETEMIR (LEVEMIR) 100 UNIT/ML SYR SQ SCH (09:29)
[2020-08-30] MEDS: INSULIN ASPART (NovoLOG) 100 UNIT/ML VIAL SQ SCH ×2 (09:29→13:04)
[2020-08-30] MEDS: D5-0.45% NACL WITH KCL 20MEQ/L 1,000 ML IV SCH (09:30)
[2020-08-30 12:59] LABS: Glucose,Whole Blood 183 mg/dL (75-99)
[2020-08-30 14:55] VITALS: BP 127/88; PULSE 105; RESP 16; TEMP 97.3
--- NOTE | 2020-08-30 23:54 | DS ---
DISCHARGE SUMMARY CHIEF COMPLAINT: DKA. HISTORY OF PRESENT ILLNESS AND PHYSICAL EXAMINATION: Details of this man's history and physical can be found in the initial workup. LABORATORY STUDIES: While he was in the hospital, he had laboratory studies, details of which can be found in the laboratory section of his chart. COURSE IN THE HOSPITAL: After admission, he was placed on bedrest, started on intravenous fluids and DKA protocol. Blood sugars came down and his anion gap closed. He continued to have nausea and vomiting and was still dehydrated. However, by the , he was eating and drinking and doing well. Blood sugars were under relatively good control and he will go home on his usual insulin management and to be contacted by the office for followup. FINAL DIAGNOSES: 1. Diabetic ketoacidosis. 2. Uncontrolled type 1 insulin-dependent diabetes. 3. Depression. 4. Dehydration. OPERATIONS: None. CONSULTATIONS: None. He is improved. MMSHANEL / ALDEN: [id number] /
== END 2020-08-30 16:25 | disposition home or self-care (01) ==
LOC: EC 08:50 → 3SCARD 12:56 → INTOOBSV 12:56 → 3SCARD 20:22 → 6NMEDSUR 08-28 20:36 → 6PED 08-29 10:37 → UNDODISIN 08-30 16:25
PROVIDERS: ADMIT Family Medicine; ATTEND Family Medicine
DX: E10.10 Type 1 diabetes mellitus with ketoacidosis without coma (principal); F32.9 Major depressive disorder, single episode, unspecified; E86.0 Dehydration; F60.9 Personality disorder, unspecified; R00.0 Tachycardia, unspecified; Z20.822 Contact with and (suspected) exposure to COVID-19; F41.9 Anxiety disorder, unspecified; E10.40 Type 1 diabetes mellitus with diabetic neuropathy, unspecified; J45.909 Unspecified asthma, uncomplicated; L30.9 Dermatitis, unspecified; Z79.4 Long term (current) use of insulin; Z87.891 Personal history of nicotine dependence; Z91.5 Personal history of self-harm; Z90.89 Acquired absence of other organs; Z98.890 Other specified postprocedural states; Z82.49 Family history of ischemic heart disease and other diseases of the circulatory system; Z83.49 Family history of other endocrine, nutritional and metabolic diseases; Z82.3 Family history of stroke
CPT/HCPCS: 96376 ×3; 96361; 96374; 96375; 99285; 36415; 93005; 80051; 80053 ×2; 82565; 82803; 82009; 83605; 84100; 82947; 84520; 85025 ×2; 81001; 87635; G0378 ×6; J2765; J2405 ×3

== ENCOUNTER 2020-09-05 21:03 | Inpatient (IN) | payer OTHER ==
[2020-09-05] MEDS ORDERED: SODIUM CHLORIDE 0.9% 1,000 ML IV STA (21:10)
--- NOTE | 2020-09-05 21:13 | ED ---
General Adult HPI - General Stated complaint: Altered Mental Status Time Seen by Provider: 09/05/20 21:07 Source: patient, EMS, RN notes reviewed, old records reviewed - History of Present Illness Initial comments: 25-year-old male presenting with confusion, tachycardia, tachypnea. Patient was transported by EMS. He is a type I diabetic who is well-known to this institution. According to his roommates the patient had not been taking his insulin since recent discharge. The patient states that he has been taking his insulin but is unable to give a complete history. He been given 1500 mL of normal saline by EMS during transport. He was initially hypotensive, tachycardic and tachypnea. - Related Data Home Medications Medication Instructions Recorded Confirmed INSULIN ASPART (NovoLOG) [NovoLOG 10 unit SQ AC-TID 08/27/20 09/05/20 (formulary)] Insulin Detemir (Levemir) [Levemir] 25 unit SQ DAILY 08/27/20 09/05/20 Allergies Allergy/AdvReac Type Severity Reaction Status Date / Time No Known Allergies Allergy Verified 09/05/20 22:25 Review of Systems ROS Statement: Those systems with pertinent positive or pertinent negative responses have been documented in the HPI. ROS Other: All systems not noted in ROS Statement are negative. Past Medical History Past Medical History: Asthma, Diabetes Mellitus, Skin Disorder Additional Past Medical History / Comment(s): IDDM type I, neuropathy bilateral feet, DKA, eczema. History of multiple psychiatric hospitalizations or suicide attempts. History of Any Multi-Drug Resistant Organisms: None Reported Past Surgical History: Adenoidectomy Additional Past Surgical History / Comment(s): 2002 Past Anesthesia/Blood Transfusion Reactions: No Reported Reaction Smoking Status: Former smoker - Past Family History Mother Family Medical History: CVA/TIA Father Family Medical History: Hyperlipidemia, Hypertension Additional Family Medical History / Comment(s): . General Exam General appearance: lethargic, in distress Head exam: Present: atraumatic, normocephalic Eye exam: Present: normal appearance, PERRL ENT exam: Present: mucous membranes dry Neck exam: Present: normal inspection. Absent: tenderness, meningismus Respiratory exam: Present: normal lung sounds bilaterally, respiratory distress ([place]) Cardiovascular Exam: Present: normal rhythm, tachycardia Extremities exam: Absent: normal capillary refill (Delayed cap refill distal extremities) Neurological exam: Present: alert. Absent: motor sensory deficit Skin exam: Present: intact, pallor Course Vital Signs 09/05/20 21:05 Pulse Rate 108 H Respiratory 32 H Rate Blood Pressure 101/61 O2 Sat by Pulse 100 Oximetry - Reevaluation(s) Reevaluation #1: 09/05/20 22:08 Case discussed both with the admitting physician Dr. Valenzuela and the pulmonary special inspector Dr. Shankar. EKG Findings - EKG Comments: EKG Findings:: Significant artifact secondary to respiratory distress, sinus tachycardia with a rate of 118. AL interval 140, QRS duration 144, QTC 552 Medical Decision Making - Medical Decision Making 25-year-old male presenting in severe DKA. History of recurrent DKA and noncompliance with medication. Patient had been given 1.5 L of normal saline by EMS. He is given additional 2 L normal saline bolus and started on a maintenance infusion normal saline. He has a pH of 6.9 on venous blood gas and a nondetectable CO2. He is acetone positive. He has an additional lactic acid of 6.2 which is likely secondary to profound dehydration. Additionally he has a white count of 63,000. I suspect this is reactive and secondary to DKA but the patient is administered 2 g of IV Rocephin to cover for possible infection. He has a severe metabolic acidosis secondary to both DKA and lactic acidosis. He is in acute renal failure with elevated creatinine, potassium of 7.3. Nondetectable bicarb. He has been initiated on normal saline, IV insulin infusion. Case has been discussed both with the admitting physician and the special inspector. - Lab Data Result diagrams: 09/05/20 21:26 09/05/20 21:26 Lab Results 09/05/20 09/05/20 09/05/20 Range/Units 21:08 21:26 21:26 WBC 63.1 H* (3.8-10.6) k/uL RBC 4.62 (4.30-5.90) m/uL Hgb 14.4 (13.0-17.5) gm/dL Hct 50.1 (39.0-53.0) % MCV 108.3 H D (80.0-100.0) fL MCH 31.2 (25.0-35.0) pg MCHC 28.8 L (31.0-37.0) g/dL RDW 12.4 (11.5-15.5) % Plt Count 493 H (150-450) k/uL MPV 8.1 Neutrophils % (Manual) 82 % Band Neuts % (Manual) 3 % Lymphocytes % (Manual) 5 % Monocytes % (Manual) 7 % Metamyelocytes % 4 % Myelocytes % 1 % Neutrophils # (Manual) 53.60 H (1.3-7.7) k/uL Lymphocytes # (Manual) 3.16 (1.0-4.8) k/uL Monocytes # (Manual) 4.42 H (0-1.0) k/uL Metamyelocytes # (Man) 2.52 H (0) k/uL Myelocytes # (Manual) 0.63 H (0) k/uL Nucleated RBCs 0 (0-0) /100 WBC Manual Slide Review Performed Toxic Granulation Present Hypochromasia Marked Macrocytosis Moderate PT 11.0 (9.0-12.0) sec INR 1.0 (<1.2) APTT 28.6 (22.0-30.0) sec VBG pH (7.31-7.41) VBG pCO2 (37-51) mmHg VBG HCO3 (24-28) mmol/L Sodium (137-145) mmol/L Potassium (3.5-5.1) mmol/L Chloride (98-107) mmol/L Carbon Dioxide (22-30) mmol/L Anion Gap mmol/L BUN (9-20) mg/dL Creatinine (0.66-1.25) mg/dL Est GFR (CKD-EPI)AfAm (>60 ml/min/1.73 sqM) Est GFR (CKD-EPI)NonAf (>60 ml/min/1.73 sqM) Glucose (74-99) mg/dL POC Glucose (mg/dL) >600 H (75-99) mg/dL POC Glu Bag Press Operator ID Velia Zuniga Plasma Lactic Acid Len (0.7-2.0) mmol/L Calcium (8.4-10.2) mg/dL Magnesium (1.6-2.3) mg/dL Total Bilirubin (0.2-1.3) mg/dL AST (17-59) U/L ALT (4-49) U/L Alkaline Phosphatase (38-126) U/L Total Protein (6.3-8.2) g/dL Albumin (3.5-5.0) g/dL Acetone, Qual (Negative) 09/05/20 09/05/20 09/05/20 Range/Units 21:26 21:26 21:26 WBC (3.8-10.6) k/uL RBC (4.30-5.90) m/uL Hgb (13.0-17.5) gm/dL Hct (39.0-53.0) % MCV (80.0-100.0) fL MCH (25.0-35.0) pg MCHC (31.0-37.0) g/dL RDW (11.5-15.5) % Plt Count (150-450) k/uL MPV Neutrophils % (Manual) % Band Neuts % (Manual) % Lymphocytes % (Manual) % Monocytes % (Manual) % Metamyelocytes % % Myelocytes % % Neutrophils # (Manual) (1.3-7.7) k/uL Lymphocytes # (Manual) (1.0-4.8) k/uL Monocytes # (Manual) (0-1.0) k/uL Metamyelocytes # (Man) (0) k/uL Myelocytes # (Manual) (0) k/uL Nucleated RBCs (0-0) /100 WBC Manual Slide Review Toxic Granulation Hypochromasia Macrocytosis PT (9.0-12.0) sec INR (<1.2) APTT (22.0-30.0) sec VBG pH 6.91 L* (7.31-7.41) VBG pCO2 19 L (37-51) mmHg VBG HCO3 4 L* (24-28) mmol/L Sodium 133 L (137-145) mmol/L Potassium 7.3 H* (3.5-5.1) mmol/L Chloride 92 L (98-107) mmol/L Carbon Dioxide <5 L* (22-30) mmol/L Anion Gap mmol/L BUN 44 H (9-20) mg/dL Creatinine 3.79 H (0.66-1.25) mg/dL Est GFR (CKD-EPI)AfAm 24 (>60 ml/min/1.73 sqM) Est GFR (CKD-EPI)NonAf 21 (>60 ml/min/1.73 sqM) Glucose (74-99) mg/dL POC Glucose (mg/dL) (75-99) mg/dL POC Glu Bag Press Operator ID Plasma Lactic Acid Len 6.2 H* (0.7-2.0) mmol/L Calcium 7.3 L (8.4-10.2) mg/dL Magnesium 2.9 H (1.6-2.3) mg/dL Total Bilirubin 0.4 (0.2-1.3) mg/dL AST 20 (17-59) U/L ALT 13 (4-49) U/L Alkaline Phosphatase 86 (38-126) U/L Total Protein 5.5 L (6.3-8.2) g/dL Albumin 3.8 (3.5-5.0) g/dL Acetone, Qual Positive (Negative) Critical Care Time Critical Care Time: Yes Total Critical Care Time: 35 Disposition Clinical Impression: Leukocytosis, IDDM (insulin dependent diabetes mellitus), DKA (diabetic ketoacidoses) Disposition: ADMITTED IP TO THIS [facility] Condition: Serious Is patient prescribed a controlled substance at d/c from ED?: No Decision to Admit Reason: Admit from EC Decision Date: 09/05/20 Decision Time: 22:10
[2020-09-05 21:17] LABS: Glucose,Whole Blood >600 mg/dL (75-99)
[2020-09-05 21:45] LABS: VBG PH 6.91 (7.31-7.41)
[2020-09-05 21:52] LABS: Partial Thromboplastin Time 28.6 sec (22.0-30.0)
[2020-09-05 21:58] LABS: HCT 50.1 % (39.0-53.0); HGB 14.4 gm/dL (13.0-17.5); Hypochromasia Marked; MCH 31.2 pg (25.0-35.0); MCHC 28.8 g/dL (31.0-37.0); MCV 108.3 fL (80.0-100.0); Macrocytosis Moderate; Mean Platelet Volume 8.1; Platelet Count 493 k/uL (150-450); RBC 4.62 m/uL (4.30-5.90); RDW 12.4 % (11.5-15.5); WBC 63.1 k/uL (3.8-10.6)
[2020-09-05 22:04] LABS: ALT 13 U/L (4-49); AST 20 U/L (17-59); African American GFR (CKD) 24 (>60 ml/min/1.73 sqM); Albumin 3.8 g/dL (3.5-5.0); Alkaline Phosphatase 86 U/L (38-126); Blood Urea Nitrogen 44 mg/dL (9-20); Calcium 7.3 mg/dL (8.4-10.2); Chloride 92 mmol/L (98-107); Magnesium 2.9 mg/dL (1.6-2.3); Non-African American GFR(CKD) 21 (>60 ml/min/1.73 sqM); Sodium 133 mmol/L (137-145); Total Bilirubin 0.4 mg/dL (0.2-1.3); Total Protein 5.5 g/dL (6.3-8.2)
[2020-09-05] MEDS ORDERED: INSULIN REGULAR BOLUS (FROM DRIP BAG) IV ONE (22:17)
[2020-09-05] MEDS ORDERED: SODIUM CHLORIDE 0.9% 1,000 ML IV ONE (22:19)
[2020-09-05 22:26] LABS: Band Neutrophils % 3 %; Lymphocytes # (M) 3.16 k/uL (1.0-4.8); Metamyelocytes # (M) 2.52 k/uL (0); Metamyelocytes % 4 %; Monocytes # (M) 4.42 k/uL (0-1.0); Myelocytes # (M) 0.63 k/uL (0); Myelocytes % 1 %; Neutrophils % (M) 82 %; Nucleated Red Blood Cells 0 /100 WBC (0-0); Total Cells Counted 200
[2020-09-05 22:27] LABS: Toxic Granulation Present
[2020-09-05 22:35] LABS: Carbon Dioxide <5 mmol/L (22-30); Potassium 7.3 mmol/L (3.5-5.1)
[2020-09-05] MEDS ORDERED: CALCIUM GLUCONATE 1 GM in SODIUM CHLORIDE 0.9% 100 ML IVPB ONE (22:45)
[2020-09-05 22:59] LABS: Glucose 1337 mg/dL (74-99)
[2020-09-05] MEDS: INSULIN REGULAR 100 UNIT in SODIUM CHLORIDE 0.9% 100 ML IV SCH (23:28)
[2020-09-05] MEDS: SODIUM CHLORIDE 0.9% 1,000 ML IV SCH (23:28)
[2020-09-05] MEDS: cefTRIAXone IN SWFI 1,000 MG/10 ML SYRINGE IVP SCH (23:30)
[2020-09-06] LABS: Appearance,Urine Clear (Clear); Color,Urine Colorless; Glucose,Urine (UA) 4+ (Negative); Protein,Urine Trace (Negative)
[2020-09-06 00:01] LABS: Bilirubin,Urine Negative (Negative); Blood,Urine Small (Negative); Hyaline Casts,Urine 15 /lpf (0-2); Ketones,Urine 3+ (Negative); Leukocyte Esterase,Urine Negative (Negative); Mucus,Urine Rare /hpf; Nitrite,Urine Negative (Negative); RBC,Urine <1 /hpf (0-5); Urobilinogen,Urine <2.0 mg/dL (<2.0); WBC,Urine 2 /hpf (0-5)
[2020-09-06 00:32] LABS: Glucose,Whole Blood >600 mg/dL (75-99)
[2020-09-06 01:14] LABS: African American GFR (CKD) 26 (>60 ml/min/1.73 sqM); Blood Urea Nitrogen 47 mg/dL (9-20); Calcium 8.5 mg/dL (8.4-10.2); Chloride 93 mmol/L (98-107); Non-African American GFR(CKD) 22 (>60 ml/min/1.73 sqM); Sodium 140 mmol/L (137-145)
[2020-09-06 01:51] LABS: Glucose,Whole Blood >600 mg/dL (75-99)
[2020-09-06 02:18] LABS: Carbon Dioxide <5 mmol/L (22-30); Potassium 7.5 mmol/L (3.5-5.1)
[2020-09-06 02:22] LABS: Glucose >1250 mg/dL (74-99)
[2020-09-06 03:20] LABS: Glucose,Whole Blood >600 mg/dL (75-99)
[2020-09-06 04:30] LABS: Glucose,Whole Blood 587 mg/dL (75-99)
[2020-09-06 05:04] LABS: Glucose,Whole Blood 457 mg/dL (75-99)
[2020-09-06 05:13] LABS: Phosphorus 3.8 mg/dL (2.5-4.5); Potassium 5.8 mmol/L (3.5-5.1)
[2020-09-06 05:44] LABS: HCT 51.3 % (39.0-53.0); HGB 16.6 gm/dL (13.0-17.5); MCH 31.1 pg (25.0-35.0); MCHC 32.4 g/dL (31.0-37.0); Mean Platelet Volume 7.4; Platelet Count 397 k/uL (150-450); RBC 5.35 m/uL (4.30-5.90)
[2020-09-06 05:45] LABS: MCV 95.8 fL (80.0-100.0); WBC 65.7 k/uL (3.8-10.6)
[2020-09-06 06:10] LABS: Glucose,Whole Blood 483 mg/dL (75-99)
[2020-09-06 07:11] LABS: Glucose,Whole Blood 369 mg/dL (75-99)
[2020-09-06 07:44] LABS: Band Neutrophils % 2 %; Eosinophils # (M) 0.66 k/uL (0-0.7); Lymphocytes # (M) 9.86 k/uL (1.0-4.8); Metamyelocytes # (M) 0.66 k/uL (0); Metamyelocytes % 1 %; Monocytes # (M) 2.63 k/uL (0-1.0); Neutrophils % (M) 79 %; Nucleated Red Blood Cells 0 /100 WBC (0-0); Total Cells Counted 200
[2020-09-06 07:46] LABS: Toxic Granulation Present
[2020-09-06 08:08] LABS: Glucose,Whole Blood 306 mg/dL (75-99)
[2020-09-06] MEDS: SODIUM CHLORIDE 0.9% 1,000 ML IV SCH ×5 (08:15→20:21)
[2020-09-06 09:09] LABS: Glucose,Whole Blood 283 mg/dL (75-99)
[2020-09-06] MEDS: D5-0.45% NACL WITH KCL 20MEQ/L 1,000 ML IV SCH ×2 (09:32→20:20)
[2020-09-06 10:16] LABS: Glucose,Whole Blood 252 mg/dL (75-99)
[2020-09-06 11:11] LABS: Glucose,Whole Blood 276 mg/dL (75-99)
[2020-09-06 11:20] LABS: Basophils # (A) 0.3 k/uL (0-0.2); Basophils % (A) 1 %; Eosinophils # (A) 0.8 k/uL (0-0.7); Eosinophils % (A) 2 %; HCT 42.3 % (39.0-53.0); Lymphocytes # (A) 2.3 k/uL (1.0-4.8); Lymphocytes % (A) 5 %; MCH 31.7 pg (25.0-35.0); MCHC 35.5 g/dL (31.0-37.0); Mean Platelet Volume 6.8; Monocytes # (A) 2.4 k/uL (0-1.0); Monocytes % (A) 5 %; Neutrophils # (A) 40.1 k/uL (1.3-7.7); Neutrophils % (A) 87 %; Platelet Count 353 k/uL (150-450); RBC 4.74 m/uL (4.30-5.90); RDW 12.3 % (11.5-15.5)
[2020-09-06 11:29] LABS: African American GFR (CKD) >90 (>60 ml/min/1.73 sqM); Anion Gap 14 mmol/L; Blood Urea Nitrogen 36 mg/dL (9-20); Calcium 8.9 mg/dL (8.4-10.2); Carbon Dioxide 20 mmol/L (22-30); Chloride 115 mmol/L (98-107); Glucose 265 mg/dL (74-99); Magnesium 2.7 mg/dL (1.6-2.3); Non-African American GFR(CKD) >90 (>60 ml/min/1.73 sqM); Potassium 4.6 mmol/L (3.5-5.1); Sodium 149 mmol/L (137-145)
[2020-09-06 11:44] LABS: MCV 89.1 fL (80.0-100.0)
[2020-09-06 12:15] LABS: Glucose,Whole Blood 266 mg/dL (75-99)
[2020-09-06 12:41] LABS: Poikilocytosis (M) Present
[2020-09-06 13:28] LABS: Glucose,Whole Blood 240 mg/dL (75-99)
--- NOTE | 2020-09-06 14:02 | HP ---
HISTORY AND PHYSICAL CHIEF COMPLAINT: Dehydration, lethargy, and DKA. HISTORY OF PRESENT ILLNESS: This is another admission for this 25-year-old white male. He was just in the hospital last week. He goes home, does not take his insulin. He has had depression on and off for years. Was in the hospital last week. He refused a psych consult. He came in this time in DKA and had elevated potassium and a white count of 63,000. There is no sign of infection. REVIEW OF SYSTEMS: Review of systems cannot be obtained because he is lethargic. Past medical history, family history and personal and social histories are otherwise unremarkable and unchanged. PHYSICAL EXAMINATION: Blood pressure is 135 and regular, respirations are 42, and blood pressure is 108/64. GENERAL: He appeared to be slender, lethargic and dehydrated. Skin color is normal. Head, ears, eyes, nose, mouth and throat are normal. Chest is clear. Cardiac exam demonstrated tachycardia. Abdomen is soft and nontender and it was flat and there is no visceromegaly. Extremities are normal. Neurologically, he is intact other than being lethargic. IMPRESSION: 1. Diabetic ketoacidosis. 2. Leukocytosis. 3. Dehydration. 4. Hyperkalemia. 5. Depression. PLAN: 1. Bedrest. 2. IV fluids. 3. DKA protocol. MMODL / IJN: [id number] /
--- NOTE | 2020-09-06 14:09 | PN ---
PROGRESS NOTE DATE OF SERVICE: 09/06/2020. CHIEF COMPLAINT: Diabetic ketoacidosis. HISTORY OF PRESENT ILLNESS: This gentleman is lethargic. PHYSICAL EXAMINATION: Chest is clear. Cardiac exam demonstrates sinus tachycardia with a rate of around 120. Abdomen is soft. Extremities are normal. IMPRESSION: 1. Diabetic ketoacidosis. 2. Dehydration. 3. Sinus tachycardia. PLAN: Continue with DKA protocol and repeat laboratory studies and EKG. The nurse was concerned about his EKG, but it shows sinus tachycardia with a right bundle branch block and tall, peaked T-waves consistent with his hyperkalemia. EKG will be repeated and will be expected to be improved. MMODL / IJN: [id number] /
[2020-09-06 14:17] LABS: Glucose,Whole Blood 183 mg/dL (75-99)
[2020-09-06] MEDS: INSULIN REGULAR 100 UNIT in SODIUM CHLORIDE 0.9% 100 ML IV SCH (14:22)
[2020-09-06 15:10] LABS: Glucose,Whole Blood 168 mg/dL (75-99)
[2020-09-06 16:16] LABS: Glucose,Whole Blood 125 mg/dL (75-99)
--- NOTE | 2020-09-06 16:39 | XR ---
EXAMINATION TYPE: XR chest 2V DATE OF EXAM: 09/06/2020 COMPARISON: Chest x-ray 05/10/2020 HISTORY: Leukocytosis TECHNIQUE: Frontal and lateral views of the chest are obtained. FINDINGS: There is no focal air space opacity, pleural effusion, or pneumothorax seen. The cardiac silhouette size is small. There are overlying artifacts. The osseous structures are intact. IMPRESSION: No acute cardiopulmonary process.
[2020-09-06 17:43] LABS: Glucose,Whole Blood 135 mg/dL (75-99)
[2020-09-06 18:37] LABS: ALT 11 U/L (4-49); AST 28 U/L (17-59); African American GFR (CKD) >90 (>60 ml/min/1.73 sqM); Albumin 3.9 g/dL (3.5-5.0); Alkaline Phosphatase 91 U/L (38-126); Anion Gap 10 mmol/L; Blood Urea Nitrogen 32 mg/dL (9-20); Carbon Dioxide 23 mmol/L (22-30); Chloride 115 mmol/L (98-107); Glucose 114 mg/dL (74-99); Non-African American GFR(CKD) >90 (>60 ml/min/1.73 sqM); Potassium 4.3 mmol/L (3.5-5.1); Sodium 148 mmol/L (137-145); Total Bilirubin 0.3 mg/dL (0.2-1.3); Total Protein 6.3 g/dL (6.3-8.2)
[2020-09-06 21:02] LABS: Hemoglobin A1C 10.5 % (4.0-6.0)
[2020-09-06 21:09] LABS: Glucose,Whole Blood 184 mg/dL (75-99)
[2020-09-06] MEDS ORDERED: ONDANSETRON 4 MG/2 ML VIAL IVP PRN (21:19)
[2020-09-06] MEDS: INSULIN ASPART (NovoLOG) 100 UNIT/ML VIAL SQ SCH (21:20)
[2020-09-06] MEDS: INSULIN DETEMIR (LEVEMIR) 100 UNIT/ML SYR SQ SCH (21:29)
[2020-09-07] MEDS: D5-0.45% NACL WITH KCL 20MEQ/L 1,000 ML IV SCH ×4 (01:31→16:26)
[2020-09-07] MEDS: SODIUM CHLORIDE 0.9% 1,000 ML IV SCH ×8 (01:31→16:28)
[2020-09-07 07:32] LABS: Glucose,Whole Blood 326 mg/dL (75-99)
[2020-09-07] MEDS: INSULIN ASPART (NovoLOG) 100 UNIT/ML VIAL SQ SCH ×4 (08:34→20:19)
[2020-09-07 11:36] LABS: Glucose,Whole Blood 266 mg/dL (75-99)
[2020-09-07 13:00] VITALS: BMI 17.4
[2020-09-07 16:03] LABS: Basophils % (A) 0 %; Eosinophils # (A) 0.1 k/uL (0-0.7); Eosinophils % (A) 1 %; HCT 36.6 % (39.0-53.0); HGB 13.1 gm/dL (13.0-17.5); Lymphocytes # (A) 2.8 k/uL (1.0-4.8); Lymphocytes % (A) 14 %; MCH 32.4 pg (25.0-35.0); MCHC 35.8 g/dL (31.0-37.0); MCV 90.6 fL (80.0-100.0); Mean Platelet Volume 6.9; Monocytes # (A) 0.8 k/uL (0-1.0); Monocytes % (A) 4 %; Neutrophils # (A) 16.2 k/uL (1.3-7.7); Neutrophils % (A) 81 %; Platelet Count 239 k/uL (150-450); RBC 4.04 m/uL (4.30-5.90); RDW 12.5 % (11.5-15.5); WBC 20.1 k/uL (3.8-10.6)
[2020-09-07 17:43] LABS: Glucose,Whole Blood 241 mg/dL (75-99)
--- NOTE | 2020-09-07 18:28 | PN ---
PROGRESS NOTE DATE OF SERVICE: 09/07/2020 CHIEF COMPLAINT: DKA and persistent nausea and vomiting. HISTORY OF PRESENT ILLNESS: This gentleman is improving. His white count is down to around 20,000. Laboratory studies are back to normal. Blood sugars are under reasonably good control for him. PHYSICAL EXAMINATION: Chest is clear. Cardiac exam is normal. The abdomen is soft and nontender. Hydration and nutrition are excellent. IMPRESSION: 1. Diabetic ketoacidosis. 2. Uncontrolled type 1 insulin-dependent diabetes mellitus. 3. Persistent nausea and vomiting. PLAN: Probably home tomorrow. MMODL / IJN: [id number] /
[2020-09-07 19:53] LABS: Glucose,Whole Blood 312 mg/dL (75-99)
[2020-09-07] MEDS: INSULIN DETEMIR (LEVEMIR) 100 UNIT/ML SYR SQ SCH (20:20)
[2020-09-08] MEDS: SODIUM CHLORIDE 0.9% 1,000 ML IV SCH ×6 (02:59→12:34)
[2020-09-08] MEDS: D5-0.45% NACL WITH KCL 20MEQ/L 1,000 ML IV SCH (03:00)
[2020-09-08 05:25] LABS: Glucose,Whole Blood 53 mg/dL (75-99)
[2020-09-08 05:57] LABS: Glucose,Whole Blood 55 mg/dL (75-99)
[2020-09-08 06:21] LABS: Glucose,Whole Blood 121 mg/dL (75-99)
[2020-09-08] MEDS: INSULIN ASPART (NovoLOG) 100 UNIT/ML VIAL SQ SCH ×2 (07:12→13:28)
[2020-09-08 07:21] LABS: Glucose,Whole Blood 120 mg/dL (75-99)
[2020-09-08 11:48] LABS: Glucose,Whole Blood 257 mg/dL (75-99)
[2020-09-08 12:40] VITALS: BP 113/78; PULSE 76; RESP 14; TEMP 98.2
--- NOTE | 2020-09-08 13:19 | DS ---
DISCHARGE SUMMARY CHIEF COMPLAINT: DKA. HISTORY OF PRESENT ILLNESS AND PHYSICAL EXAMINATION: Details of this man's history and physical can be found in the initial workup. LABORATORY STUDIES: While he was in a hospital he had laboratory studies, details of which can be found in the laboratory section of his chart. COURSE IN THE HOSPITAL: After admission he was placed on bedrest and treated for DKA. Blood sugars came down and electrolytes improved. Gap closed and he was started back on basal bolus program with sliding scale. His white count also dropped back down. His vomiting stopped. Stable for discharge. He was doing well it was felt that he could go home on the . He will go home on light activity about the house and his usual diet and his usual insulin management with 25 units of Lantus plus scale. He will be seen in the office in several days, if he keeps his appointments, which he usually does not. FINAL DIAGNOSIS: 1. Diabetic ketoacidosis. 2. Dehydration. 3. Leukocytosis. 4. Intractable nausea and vomiting. 5. Depression, refusing a psychiatric consultation. OPERATIONS: None. CONSULTATION: None. He is improved. MMODL / IJN: [id number] /
== END 2020-09-08 14:15 | disposition home or self-care (01) | DRG 638 ==
LOC: EC 21:03 → 2SICU 22:17 → 5NMEDONC 09-06 19:16
PROVIDERS: ADMIT Family Medicine; ATTEND Family Medicine
DX: E10.10 Type 1 diabetes mellitus with ketoacidosis without coma (principal); N17.9 Acute kidney failure, unspecified; D72.829 Elevated white blood cell count, unspecified; E86.0 Dehydration; E87.5 Hyperkalemia; F32.9 Major depressive disorder, single episode, unspecified; J45.909 Unspecified asthma, uncomplicated; T38.3X6A Underdosing of insulin and oral hypoglycemic [antidiabetic] drugs, initial encounter; Z79.4 Long term (current) use of insulin; Z82.49 Family history of ischemic heart disease and other diseases of the circulatory system; Z87.891 Personal history of nicotine dependence; Z91.5 Personal history of self-harm; Z91.14 Patient's other noncompliance with medication regimen; E10.40 Type 1 diabetes mellitus with diabetic neuropathy, unspecified; Z82.3 Family history of stroke
CPT/HCPCS: 36415; 71046; 80048; 80051; 80053; 81001; 82009; 82565; 82803; 82947; 83036; 83605; 83735; 84100; 84520; 85025; 85610; 85730; 87635; 93005; 96360; 99285

== ENCOUNTER 2020-09-18 11:52 | Emergency (ER) | payer OTHER ==
[2020-09-18 12:00] VITALS: TEMP 98.3
[2020-09-18] MEDS ORDERED: SODIUM CHLORIDE 0.9% 2,000 ML IV STA (12:00)
[2020-09-18] MEDS ORDERED: ONDANSETRON 4 MG/2 ML VIAL IVP STA (12:00)
--- NOTE | 2020-09-18 12:12 | ED ---
General Adult HPI - General Chief complaint: Recheck/Abnormal Lab/Rx Stated complaint: poss DKA Time Seen by Provider: 09/18/20 12:00 Source: patient, RN notes reviewed Mode of arrival: ambulatory Limitations: no limitations - History of Present Illness Initial comments: This a 25-year-old male with past medical history of insulin-dependent diabetic well-known emergency department presents today with chief complaint of possible DKA, nausea vomiting. Patient states he has not checked his blood sugar today. He has not taken any insulin today. Patient states that his blood sugar as well as likely very high does not feel well. Denies abdominal pain no chest pain or shortness breath no headache or dizziness. - Related Data Home Medications Medication Instructions Recorded Confirmed INSULIN ASPART (NovoLOG) [NovoLOG 10 unit SQ AC-TID 08/27/20 09/18/20 (formulary)] Insulin Detemir (Levemir) [Levemir] 25 unit SQ DAILY 08/27/20 09/18/20 Gabapentin 600 mg PO BID 09/18/20 09/18/20 traZODone HCL [Desyrel] 100 - 200 mg PO HS 09/18/20 09/18/20 Allergies Allergy/AdvReac Type Severity Reaction Status Date / Time No Known Allergies Allergy Verified 09/18/20 12:33 Review of Systems ROS Statement: Those systems with pertinent positive or pertinent negative responses have been documented in the HPI. ROS Other: All systems not noted in ROS Statement are negative. Past Medical History Past Medical History: Asthma, Diabetes Mellitus, Skin Disorder Additional Past Medical History / Comment(s): IDDM type I, neuropathy bilateral feet, DKA, eczema. History of multiple psychiatric hospitalizations or suicide attempts. History of Any Multi-Drug Resistant Organisms: None Reported Past Surgical History: Adenoidectomy Additional Past Surgical History / Comment(s): 2002 Past Anesthesia/Blood Transfusion Reactions: No Reported Reaction Past Psychological History: Anxiety, Depression Smoking Status: Former smoker Past Alcohol Use History: None Reported Past Drug Use History: None Reported - Past Family History Mother Family Medical History: CVA/TIA Father Family Medical History: Hyperlipidemia, Hypertension Additional Family Medical History / Comment(s): . General Exam Limitations: no limitations General appearance: alert, in no apparent distress Head exam: Present: atraumatic, normocephalic, normal inspection Eye exam: Present: normal appearance, PERRL, EOMI. Absent: scleral icterus, conjunctival injection, periorbital swelling ENT exam: Present: normal exam, normal oropharynx, mucous membranes moist Neck exam: Present: normal inspection, full ROM. Absent: tenderness, meningismus, lymphadenopathy Respiratory exam: Present: normal lung sounds bilaterally. Absent: respiratory distress, wheezes, rales, rhonchi, stridor Cardiovascular Exam: Present: normal rhythm, tachycardia, normal heart sounds. Absent: systolic murmur, diastolic murmur, rubs, gallop, clicks GI/Abdominal exam: Present: soft, normal bowel sounds. Absent: distended, tenderness, guarding, rebound, rigid Neurological exam: Present: alert, oriented X3 Course Vital Signs 09/18/20 11:59 Temperature 98.3 F Pulse Rate 102 H Respiratory 22 Rate Blood Pressure 116/83 O2 Sat by Pulse 97 Oximetry Medical Decision Making - Medical Decision Making 25-year-old male presented for hyperglycemia. Labs. Patient is a moderately hyperglycemic, was well hydrated, given insulin as but sugar was over 600. Patient is feeling improved and will be discharged in stable condition return parameters discussed. - Lab Data Result diagrams: 09/18/20 12:18 09/18/20 12:18 Lab Results 09/18/20 09/18/20 09/18/20 Range/Units 12:07 12:18 12:18 WBC 7.3 (3.8-10.6) k/uL RBC 4.77 (4.30-5.90) m/uL Hgb 14.6 (13.0-17.5) gm/dL Hct 43.9 (39.0-53.0) % MCV 92.1 (80.0-100.0) fL MCH 30.6 (25.0-35.0) pg MCHC 33.2 (31.0-37.0) g/dL RDW 12.8 (11.5-15.5) % Plt Count 383 (150-450) k/uL MPV 6.7 Neutrophils % 53 % Lymphocytes % 34 % Monocytes % 6 % Eosinophils % 4 % Basophils % 1 % Neutrophils # 3.9 (1.3-7.7) k/uL Lymphocytes # 2.5 (1.0-4.8) k/uL Monocytes # 0.4 (0-1.0) k/uL Eosinophils # 0.3 (0-0.7) k/uL Basophils # 0.1 (0-0.2) k/uL Sodium 133 L (137-145) mmol/L Potassium 4.7 (3.5-5.1) mmol/L Chloride 94 L (98-107) mmol/L Carbon Dioxide 29 (22-30) mmol/L Anion Gap 10 mmol/L BUN 14 (9-20) mg/dL Creatinine 0.67 (0.66-1.25) mg/dL Est GFR (CKD-EPI)AfAm >90 (>60 ml/min/1.73 sqM) Est GFR (CKD-EPI)NonAf >90 (>60 ml/min/1.73 sqM) Glucose 678 H* (74-99) mg/dL POC Glucose (mg/dL) >600 H (75-99) mg/dL POC Glu Hospitality Manager ID Latia Gracia Plasma Lactic Acid Len (0.7-2.0) mmol/L Calcium 9.2 (8.4-10.2) mg/dL Total Bilirubin 0.5 (0.2-1.3) mg/dL AST 18 (17-59) U/L ALT 20 (4-49) U/L Alkaline Phosphatase 104 (38-126) U/L Total Protein 6.8 (6.3-8.2) g/dL Albumin 4.5 (3.5-5.0) g/dL Lipase 210 (23-300) U/L Acetone, Qual Negative (Negative) 09/18/20 09/18/20 09/18/20 Range/Units 12:18 13:07 14:07 WBC (3.8-10.6) k/uL RBC (4.30-5.90) m/uL Hgb (13.0-17.5) gm/dL Hct (39.0-53.0) % MCV (80.0-100.0) fL MCH (25.0-35.0) pg MCHC (31.0-37.0) g/dL RDW (11.5-15.5) % Plt Count (150-450) k/uL MPV Neutrophils % % Lymphocytes % % Monocytes % % Eosinophils % % Basophils % % Neutrophils # (1.3-7.7) k/uL Lymphocytes # (1.0-4.8) k/uL Monocytes # (0-1.0) k/uL Eosinophils # (0-0.7) k/uL Basophils # (0-0.2) k/uL Sodium (137-145) mmol/L Potassium (3.5-5.1) mmol/L Chloride (98-107) mmol/L Carbon Dioxide (22-30) mmol/L Anion Gap mmol/L BUN (9-20) mg/dL Creatinine (0.66-1.25) mg/dL Est GFR (CKD-EPI)AfAm (>60 ml/min/1.73 sqM) Est GFR (CKD-EPI)NonAf (>60 ml/min/1.73 sqM) Glucose (74-99) mg/dL POC Glucose (mg/dL) 452 H 261 H (75-99) mg/dL POC Glu Hospitality Manager ID Mateo Yoder Kevin Plasma Lactic Acid Len 2.0 (0.7-2.0) mmol/L Calcium (8.4-10.2) mg/dL Total Bilirubin (0.2-1.3) mg/dL AST (17-59) U/L ALT (4-49) U/L Alkaline Phosphatase (38-126) U/L Total Protein (6.3-8.2) g/dL Albumin (3.5-5.0) g/dL Lipase (23-300) U/L Acetone, Qual (Negative) Disposition Clinical Impression: Hyperglycemia Disposition: HOME SELF-CARE Condition: Stable Instructions (If sedation given, give patient instructions): Diabetic Hyperglycemia (ED) Additional Instructions: Please return to the Emergency Department if symptoms worsen or any other concerns. Is patient prescribed a controlled substance at d/c from ED?: No Referrals: Brown Valenzuela MD [Primary Care Provider] - 1-2 days Time of Disposition: 14:17
[2020-09-18] MEDS ORDERED: INSULIN REGULAR 100 UNIT in SODIUM CHLORIDE 0.9% 100 ML IV SCH (12:15)
[2020-09-18] MEDS ORDERED: SODIUM CHLORIDE 0.9% 1,000 ML IV SCH (12:15)
[2020-09-18 12:18] LABS: Glucose,Whole Blood >600 mg/dL (75-99)
[2020-09-18 12:28] LABS: Basophils # (A) 0.1 k/uL (0-0.2); Basophils % (A) 1 %; Eosinophils # (A) 0.3 k/uL (0-0.7); Eosinophils % (A) 4 %; HCT 43.9 % (39.0-53.0); HGB 14.6 gm/dL (13.0-17.5); Lymphocytes # (A) 2.5 k/uL (1.0-4.8); Lymphocytes % (A) 34 %; MCH 30.6 pg (25.0-35.0); MCHC 33.2 g/dL (31.0-37.0); MCV 92.1 fL (80.0-100.0); Mean Platelet Volume 6.7; Monocytes # (A) 0.4 k/uL (0-1.0); Monocytes % (A) 6 %; Neutrophils # (A) 3.9 k/uL (1.3-7.7); Neutrophils % (A) 53 %; Platelet Count 383 k/uL (150-450); RBC 4.77 m/uL (4.30-5.90); RDW 12.8 % (11.5-15.5); WBC 7.3 k/uL (3.8-10.6)
[2020-09-18 12:39] LABS: ALT 20 U/L (4-49); AST 18 U/L (17-59); African American GFR (CKD) >90 (>60 ml/min/1.73 sqM); Albumin 4.5 g/dL (3.5-5.0); Alkaline Phosphatase 104 U/L (38-126); Anion Gap 10 mmol/L; Blood Urea Nitrogen 14 mg/dL (9-20); Calcium 9.2 mg/dL (8.4-10.2); Carbon Dioxide 29 mmol/L (22-30); Chloride 94 mmol/L (98-107); Lipase 210 U/L (23-300); Non-African American GFR(CKD) >90 (>60 ml/min/1.73 sqM); Potassium 4.7 mmol/L (3.5-5.1); Sodium 133 mmol/L (137-145); Total Bilirubin 0.5 mg/dL (0.2-1.3); Total Protein 6.8 g/dL (6.3-8.2)
[2020-09-18 12:53] LABS: Glucose 678 mg/dL (74-99)
[2020-09-18 13:09] LABS: Glucose,Whole Blood 452 mg/dL (75-99)
[2020-09-18] MEDS ORDERED: INSULIN REGULAR 100 UNIT/ML VIAL IV ONE (13:17)
[2020-09-18 14:09] LABS: Glucose,Whole Blood 261 mg/dL (75-99)
[2020-09-18 14:47] LABS: Glucose,Whole Blood 195 mg/dL (75-99)
[2020-09-18 14:56] VITALS: BP 102/68; PULSE 82; RESP 20
== END 2020-09-18 14:56 | disposition home or self-care (01) ==
LOC: EC 11:52
DX: E10.65 Type 1 diabetes mellitus with hyperglycemia (principal); E10.40 Type 1 diabetes mellitus with diabetic neuropathy, unspecified; J45.909 Unspecified asthma, uncomplicated; F32.9 Major depressive disorder, single episode, unspecified; Z79.4 Long term (current) use of insulin; Z87.891 Personal history of nicotine dependence
CPT/HCPCS: 36415; 80053; 82009; 83605; 83690; 85025; 99283; 96365; 96366; 96375 ×2; 96361; J2405

== ENCOUNTER 2020-09-20 10:08 | Inpatient (IN) | payer OTHER ==
[2020-09-20] MEDS ORDERED: SODIUM CHLORIDE 0.9% 2,000 ML IV STA (10:15)
[2020-09-20] MEDS ORDERED: ONDANSETRON 4 MG/2 ML VIAL IVP STA ×2 (10:15→13:40)
--- NOTE | 2020-09-20 11:00 | ED ---
General Adult HPI - General Chief complaint: Nausea/Vomiting/Diarrhea Stated complaint: vomiting Time Seen by Provider: 09/20/20 10:10 Source: patient, RN notes reviewed Mode of arrival: ambulatory Limitations: no limitations - History of Present Illness Initial comments: 25-year-old male presents emergency Department chief complaint nausea vomiting hyperglycemia. Patient seen here a few days ago for similar complaints. Patient states he was eating drinking well yesterday took his insulin yesterday but states he limited as long acting insulin today. Patient states he started vomiting shortly after taking his insulin. No fevers or chills no localized abdominal pain no chest pain no other complaints. Patient is well-known patient to with long history of insulin-dependent diabetic. - Related Data Home Medications Medication Instructions Recorded Confirmed INSULIN ASPART (NovoLOG) [NovoLOG 10 unit SQ AC-TID 08/27/20 09/18/20 (formulary)] Insulin Detemir (Levemir) [Levemir] 25 unit SQ DAILY 08/27/20 09/18/20 Gabapentin 600 mg PO BID 09/18/20 09/18/20 traZODone HCL [Desyrel] 100 - 200 mg PO HS 09/18/20 09/18/20 Allergies Allergy/AdvReac Type Severity Reaction Status Date / Time No Known Allergies Allergy Verified 09/20/20 10:10 Review of Systems ROS Statement: Those systems with pertinent positive or pertinent negative responses have been documented in the HPI. ROS Other: All systems not noted in ROS Statement are negative. Past Medical History Past Medical History: Asthma, Diabetes Mellitus, Skin Disorder Additional Past Medical History / Comment(s): IDDM type I, neuropathy bilateral feet, DKA, eczema. History of multiple psychiatric hospitalizations or suicide attempts. History of Any Multi-Drug Resistant Organisms: None Reported Past Surgical History: Adenoidectomy Additional Past Surgical History / Comment(s): 2002 Past Anesthesia/Blood Transfusion Reactions: No Reported Reaction Past Psychological History: Anxiety, Depression Smoking Status: Former smoker Past Alcohol Use History: None Reported Past Drug Use History: None Reported - Past Family History Mother Family Medical History: CVA/TIA Father Family Medical History: Hyperlipidemia, Hypertension Additional Family Medical History / Comment(s): . General Exam Limitations: no limitations General appearance: alert, in no apparent distress Head exam: Present: atraumatic, normocephalic, normal inspection Eye exam: Present: normal appearance, PERRL, EOMI. Absent: scleral icterus, conjunctival injection, periorbital swelling Neck exam: Present: normal inspection, full ROM. Absent: tenderness, meningismus, lymphadenopathy Respiratory exam: Present: normal lung sounds bilaterally. Absent: respiratory distress, wheezes, rales, rhonchi, stridor Cardiovascular Exam: Present: normal rhythm, tachycardia, normal heart sounds. Absent: systolic murmur, diastolic murmur, rubs, gallop, clicks GI/Abdominal exam: Present: soft, normal bowel sounds. Absent: distended, tenderness, guarding, rebound, rigid Back exam: Absent: CVA tenderness (R), CVA tenderness (L) Neurological exam: Present: alert Skin exam: Present: warm, dry, intact, normal color. Absent: rash Course Vital Signs 09/20/20 09/20/20 10:10 12:12 Temperature 97.8 F Pulse Rate 122 H 105 H Respiratory 18 18 Rate Blood Pressure 141/95 112/74 O2 Sat by Pulse 100 99 Oximetry Medical Decision Making - Medical Decision Making Patient's labs revealed patient does have mild acidosis related to hyperglycemia anion gap is 18, bicarbonate 19 patient was given 2 L bolus, antiemetics persistent having vomiting. Patient's case discussed Dr. Valenzuela who accepts admission. Patient will be placed in DKA protocol. - Lab Data Result diagrams: 09/20/20 11:01 09/20/20 11:01 Lab Results 09/20/20 09/20/20 09/20/20 Range/Units 11:01 11:01 11:01 WBC 8.2 (3.8-10.6) k/uL RBC 4.66 (4.30-5.90) m/uL Hgb 14.7 (13.0-17.5) gm/dL Hct 41.7 (39.0-53.0) % MCV 89.4 (80.0-100.0) fL MCH 31.5 (25.0-35.0) pg MCHC 35.3 (31.0-37.0) g/dL RDW 12.3 (11.5-15.5) % Plt Count 398 (150-450) k/uL MPV 6.4 Neutrophils % 58 % Lymphocytes % 32 % Monocytes % 4 % Eosinophils % 4 % Basophils % 1 % Neutrophils # 4.8 (1.3-7.7) k/uL Lymphocytes # 2.6 (1.0-4.8) k/uL Monocytes # 0.3 (0-1.0) k/uL Eosinophils # 0.3 (0-0.7) k/uL Basophils # 0.0 (0-0.2) k/uL Sodium 138 (137-145) mmol/L Potassium 4.4 (3.5-5.1) mmol/L Chloride 101 (98-107) mmol/L Carbon Dioxide 19 L (22-30) mmol/L Anion Gap 18 mmol/L BUN 14 (9-20) mg/dL Creatinine 0.66 (0.66-1.25) mg/dL Est GFR (CKD-EPI)AfAm >90 (>60 ml/min/1.73 sqM) Est GFR (CKD-EPI)NonAf >90 (>60 ml/min/1.73 sqM) Glucose 339 H (74-99) mg/dL POC Glucose (mg/dL) (75-99) mg/dL POC Glu [employer] Pay Technician ID Plasma Lactic Acid Len 1.2 (0.7-2.0) mmol/L Calcium 9.5 (8.4-10.2) mg/dL Total Bilirubin 0.5 (0.2-1.3) mg/dL AST 17 (17-59) U/L ALT 19 (4-49) U/L Alkaline Phosphatase 98 (38-126) U/L Total Protein 6.9 (6.3-8.2) g/dL Albumin 4.7 (3.5-5.0) g/dL Lipase 90 (23-300) U/L Acetone, Qual Positive (Negative) 09/20/20 09/20/20 Range/Units 11:13 13:02 WBC (3.8-10.6) k/uL RBC (4.30-5.90) m/uL Hgb (13.0-17.5) gm/dL Hct (39.0-53.0) % MCV (80.0-100.0) fL MCH (25.0-35.0) pg MCHC (31.0-37.0) g/dL RDW (11.5-15.5) % Plt Count (150-450) k/uL MPV Neutrophils % % Lymphocytes % % Monocytes % % Eosinophils % % Basophils % % Neutrophils # (1.3-7.7) k/uL Lymphocytes # (1.0-4.8) k/uL Monocytes # (0-1.0) k/uL Eosinophils # (0-0.7) k/uL Basophils # (0-0.2) k/uL Sodium (137-145) mmol/L Potassium (3.5-5.1) mmol/L Chloride (98-107) mmol/L Carbon Dioxide (22-30) mmol/L Anion Gap mmol/L BUN (9-20) mg/dL Creatinine (0.66-1.25) mg/dL Est GFR (CKD-EPI)AfAm (>60 ml/min/1.73 sqM) Est GFR (CKD-EPI)NonAf (>60 ml/min/1.73 sqM) Glucose (74-99) mg/dL POC Glucose (mg/dL) 330 H 240 H (75-99) mg/dL POC Glu [employer] Technician Chasity Barreto Ashley Plasma Lactic Acid Len (0.7-2.0) mmol/L Calcium (8.4-10.2) mg/dL Total Bilirubin (0.2-1.3) mg/dL AST (17-59) U/L ALT (4-49) U/L Alkaline Phosphatase (38-126) U/L Total Protein (6.3-8.2) g/dL Albumin (3.5-5.0) g/dL Lipase (23-300) U/L Acetone, Qual (Negative) Critical Care Time Critical Care Time: Yes Total Critical Care Time: 35 Critical Care Time: 35 minutes of critical care time is to initially evaluated a past medical history or labs, medications. Patient found to be in DKA. Patient started on the Protocol including insulin, fluids. Patient will have repeat labs. Case discussed with admitting physician. Disposition Clinical Impression: DKA (diabetic ketoacidoses) Disposition: ADMITTED IP TO THIS HOSP Condition: Fair Referrals: Brown Valenzuela MD [Primary Care Provider] - 1-2 days
[2020-09-20 11:14] LABS: Glucose,Whole Blood 330 mg/dL (75-99)
[2020-09-20 11:20] LABS: Basophils % (A) 1 %; Eosinophils # (A) 0.3 k/uL (0-0.7); Eosinophils % (A) 4 %; HCT 41.7 % (39.0-53.0); HGB 14.7 gm/dL (13.0-17.5); Lymphocytes # (A) 2.6 k/uL (1.0-4.8); Lymphocytes % (A) 32 %; MCH 31.5 pg (25.0-35.0); MCHC 35.3 g/dL (31.0-37.0); MCV 89.4 fL (80.0-100.0); Mean Platelet Volume 6.4; Monocytes # (A) 0.3 k/uL (0-1.0); Monocytes % (A) 4 %; Neutrophils # (A) 4.8 k/uL (1.3-7.7); Neutrophils % (A) 58 %; Platelet Count 398 k/uL (150-450); RBC 4.66 m/uL (4.30-5.90); RDW 12.3 % (11.5-15.5); WBC 8.2 k/uL (3.8-10.6)
[2020-09-20 11:40] LABS: ALT 19 U/L (4-49); AST 17 U/L (17-59); African American GFR (CKD) >90 (>60 ml/min/1.73 sqM); Albumin 4.7 g/dL (3.5-5.0); Alkaline Phosphatase 98 U/L (38-126); Anion Gap 18 mmol/L; Blood Urea Nitrogen 14 mg/dL (9-20); Calcium 9.5 mg/dL (8.4-10.2); Carbon Dioxide 19 mmol/L (22-30); Chloride 101 mmol/L (98-107); Glucose 339 mg/dL (74-99); Lipase 90 U/L (23-300); Non-African American GFR(CKD) >90 (>60 ml/min/1.73 sqM); Potassium 4.4 mmol/L (3.5-5.1); Sodium 138 mmol/L (137-145); Total Bilirubin 0.5 mg/dL (0.2-1.3); Total Protein 6.9 g/dL (6.3-8.2)
[2020-09-20] MEDS ORDERED: INSULIN REGULAR 100 UNIT in SODIUM CHLORIDE 0.9% 100 ML IV SCH (12:45)
[2020-09-20] MEDS: SODIUM CHLORIDE 0.9% 1,000 ML IV SCH ×3 (13:00→22:43)
[2020-09-20 13:03] LABS: Glucose,Whole Blood 240 mg/dL (75-99)
[2020-09-20 13:45] LABS: Glucose,Whole Blood 209 mg/dL (75-99)
[2020-09-20 14:39] LABS: Glucose,Whole Blood 168 mg/dL (75-99)
[2020-09-20 14:42] LABS: Appearance,Urine Clear (Clear); Bilirubin,Urine Negative (Negative); Blood,Urine Negative (Negative); Color,Urine Colorless; Glucose,Urine (UA) 4+ (Negative); Leukocyte Esterase,Urine Negative (Negative); Nitrite,Urine Negative (Negative); Protein,Urine Negative (Negative); Specific Gravity,Urine 1.035 (1.001-1.035); Urobilinogen,Urine <2.0 mg/dL (<2.0)
[2020-09-20 14:44] LABS: Ketones,Urine 4+ (Negative)
[2020-09-20 15:44] LABS: African American GFR (CKD) >90 (>60 ml/min/1.73 sqM); Anion Gap 12 mmol/L; Blood Urea Nitrogen 13 mg/dL (9-20); Carbon Dioxide 22 mmol/L (22-30); Chloride 105 mmol/L (98-107); Glucose 124 mg/dL (74-99); Non-African American GFR(CKD) >90 (>60 ml/min/1.73 sqM); Potassium 3.9 mmol/L (3.5-5.1); Sodium 139 mmol/L (137-145)
[2020-09-20] MEDS: D5-0.45% NACL WITH KCL 20MEQ/L 1,000 ML IV SCH ×2 (15:50→23:13)
[2020-09-20 15:59] LABS: Glucose,Whole Blood 128 mg/dL (75-99)
[2020-09-20 17:00] LABS: Glucose,Whole Blood 168 mg/dL (75-99)
[2020-09-20 18:26] LABS: Glucose,Whole Blood 149 mg/dL (75-99)
[2020-09-20 19:45] LABS: Glucose,Whole Blood 148 mg/dL (75-99)
[2020-09-20 20:11] LABS: African American GFR (CKD) >90 (>60 ml/min/1.73 sqM); Anion Gap 10 mmol/L; Blood Urea Nitrogen 13 mg/dL (9-20); Carbon Dioxide 22 mmol/L (22-30); Chloride 105 mmol/L (98-107); Glucose 156 mg/dL (74-99); Non-African American GFR(CKD) >90 (>60 ml/min/1.73 sqM); Phosphorus 2.9 mg/dL (2.5-4.5); Potassium 4.2 mmol/L (3.5-5.1); Sodium 137 mmol/L (137-145)
[2020-09-20 20:51] LABS: Glucose,Whole Blood 157 mg/dL (75-99)
[2020-09-20] MEDS ORDERED: ONDANSETRON 4 MG/2 ML VIAL IVP PRN (21:30)
[2020-09-20 22:03] LABS: Glucose,Whole Blood 174 mg/dL (75-99)
[2020-09-20 23:02] LABS: Glucose,Whole Blood 175 mg/dL (75-99)
[2020-09-21 02:56] LABS: Glucose,Whole Blood 147 mg/dL (75-99)
[2020-09-21] MEDS: D5-0.45% NACL WITH KCL 20MEQ/L 1,000 ML IV SCH (03:08)
[2020-09-21] MEDS ORDERED: INSULIN DETEMIR (LEVEMIR) 100 UNIT/ML SYR SQ SCH (07:00)
[2020-09-21 07:31] LABS: Glucose,Whole Blood 216 mg/dL (75-99)
[2020-09-21] MEDS: INSULIN ASPART (NovoLOG) 100 UNIT/ML VIAL SQ SCH ×6 (08:08→17:31)
[2020-09-21 09:01] LABS: ALT 15 U/L (4-49); AST 17 U/L (17-59); African American GFR (CKD) >90 (>60 ml/min/1.73 sqM); Albumin 4.1 g/dL (3.5-5.0); Alkaline Phosphatase 89 U/L (38-126); Anion Gap 13 mmol/L; Blood Urea Nitrogen 11 mg/dL (9-20); Calcium 8.8 mg/dL (8.4-10.2); Carbon Dioxide 22 mmol/L (22-30); Chloride 99 mmol/L (98-107); Glucose 261 mg/dL (74-99); Non-African American GFR(CKD) >90 (>60 ml/min/1.73 sqM); Potassium 3.9 mmol/L (3.5-5.1); Sodium 134 mmol/L (137-145); Total Bilirubin 0.7 mg/dL (0.2-1.3); Total Protein 6.4 g/dL (6.3-8.2)
[2020-09-21 11:05] VITALS: BMI 19.3
[2020-09-21 12:09] LABS: Glucose,Whole Blood 190 mg/dL (75-99)
[2020-09-21 15:22] VITALS: BP 126/77; PULSE 118; RESP 15; TEMP 98.3
[2020-09-21 16:57] LABS: Glucose,Whole Blood 146 mg/dL (75-99)
--- NOTE | 2020-09-21 18:30 | HP ---
HISTORY AND PHYSICAL CHIEF COMPLAINT: DKA and vomiting. HISTORY OF PRESENT ILLNESS: This is another admission for this 25-year-old gentleman who is in and out of the hospital almost weekly. He has uncontrolled type 1 diabetes mellitus and he suffers from depression and will not take his medicines appropriately. He came back in with mild DKA with nausea and vomiting. REVIEW OF SYSTEMS: He has had no fever, chills, chest pain, shortness of breath, abdominal pain, hematemesis, melena, hematochezia, urinary complaints, etc. Past medical history, family history, and personal and social histories are all otherwise unremarkable and unchanged from his recent admitting and discharge summaries. PHYSICAL EXAMINATION: Blood pressure is 136/85 with a pulse of 112, respirations of 37, and he is afebrile. In general he appeared to be slender, depressed and dehydrated. Head, ears, eyes, nose, mouth and throat were normal. Neck was supple. Chest was clear. Cardiac exam was normal except for sinus tachycardia. There were no murmurs or extra sounds. The abdomen is flat, soft and nontender without any visceromegaly or masses. Bowel sounds are present. Extremities are normal. Neurologically he is intact. He is admitted to the hospital with the diagnoses: 1. Diabetic ketoacidosis. 2. Dehydration. 3. Depression. 4. Intractable nausea and vomiting. PLAN: 1. Bedrest. 2. IV fluids. 3. Correct acid base balance and hyperglycemia. MMODL / IJN: [id number] /
--- NOTE | 2020-09-21 22:36 | DS ---
DISCHARGE SUMMARY CHIEF COMPLAINT: DKA. HISTORY OF PRESENT ILLNESS AND PHYSICAL EXAMINATION: Details of this man's history and physical can be found in the initial workup. LABORATORY STUDIES: While he was in the hospital he had laboratory studies, details of which can be found in the laboratory section of his chart. COURSE IN THE HOSPITAL: After admission he was placed on bedrest, started on intravenous fluids and DKA protocol. The gap closed and he was started back on his usual insulin management. Nausea and vomiting cleared. It was felt that he could be discharged. He will go home on his usual activity, diet and medication, and we will follow him up in several days in the office. FINAL DIAGNOSES: 1. Diabetic ketoacidosis. 2. Uncontrolled type 1 diabetes mellitus. 3. Intractable nausea and vomiting. 4. Dehydration. 5. Depression. OPERATIONS: None. CONSULTATIONS: None. He is improved. GRACE / ALDEN: [id number] /
== END 2020-09-21 18:19 | disposition home or self-care (01) | DRG 639 ==
LOC: EC 10:08 → 3SCARD 13:28
PROVIDERS: ADMIT Family Medicine; ATTEND Family Medicine
DX: E10.10 Type 1 diabetes mellitus with ketoacidosis without coma (principal); E10.42 Type 1 diabetes mellitus with diabetic polyneuropathy; J45.909 Unspecified asthma, uncomplicated; R19.7 Diarrhea, unspecified; Z79.4 Long term (current) use of insulin; Z79.899 Other long term (current) drug therapy; L30.9 Dermatitis, unspecified; Z82.49 Family history of ischemic heart disease and other diseases of the circulatory system; Z87.891 Personal history of nicotine dependence; F32.9 Major depressive disorder, single episode, unspecified; E86.0 Dehydration; Z20.822 Contact with and (suspected) exposure to COVID-19
CPT/HCPCS: 36415; 80051; 80053; 81003; 82009; 82565; 82947; 83605; 83690; 84100; 84520; 85025; 87636; 96361; 96365; 96366; 96375; 99283

== ENCOUNTER 2020-10-27 18:39 | Inpatient (IN) | payer OTHER ==
[2020-10-27] MEDS ORDERED: INSULIN REGULAR BOLUS (FROM DRIP BAG) IV ONE (18:51)
[2020-10-27] MEDS ORDERED: SODIUM CHLORIDE 0.9% 1,000 ML IV STA ×3 (18:51→19:49)
[2020-10-27 18:54] LABS: Glucose,Whole Blood >600 mg/dL (75-99)
--- NOTE | 2020-10-27 18:56 | ED ---
General Adult HPI - General Stated complaint: Poss DKA Time Seen by Provider: 10/27/20 18:49 Source: patient, EMS, RN notes reviewed Mode of arrival: EMS Limitations: no limitations - History of Present Illness Initial comments: Patient is a pleasant 25-year-old male presenting to the emergency department with concerns with hyperglycemia. Patient is a poor historian. Patient states his blood sugars have been running high. Patient states he has been taking his insulin. Patient does have history of similar symptoms previously associated with DKA. Patient feels dry and dehydrated. - Related Data Home Medications Medication Instructions Recorded Confirmed INSULIN ASPART (NovoLOG) [NovoLOG 10 unit SQ AC-TID 08/27/20 09/20/20 (formulary)] Insulin Detemir (Levemir) [Levemir] 25 unit SQ DAILY 08/27/20 09/20/20 Gabapentin 600 mg PO BID 09/18/20 09/20/20 traZODone HCL [Desyrel] 100 - 200 mg PO HS 09/18/20 09/20/20 Allergies Allergy/AdvReac Type Severity Reaction Status Date / Time No Known Allergies Allergy Verified 09/20/20 13:53 Review of Systems ROS Statement: Those systems with pertinent positive or pertinent negative responses have been documented in the HPI. ROS Other: All systems not noted in ROS Statement are negative. Constitutional: Denies: fever Eyes: Denies: eye pain ENT: Denies: ear pain Respiratory: Denies: cough Cardiovascular: Denies: chest pain Endocrine: Reports: fatigue Gastrointestinal: Reports: nausea. Denies: abdominal pain Genitourinary: Denies: dysuria Musculoskeletal: Denies: back pain Skin: Denies: rash Neurological: Reports: weakness Past Medical History Past Medical History: Asthma, Diabetes Mellitus, Skin Disorder Additional Past Medical History / Comment(s): IDDM type I, neuropathy bilateral feet, DKA, eczema. History of multiple psychiatric hospitalizations or suicide attempts. History of Any Multi-Drug Resistant Organisms: None Reported Past Surgical History: Adenoidectomy Additional Past Surgical History / Comment(s): 2002 Past Anesthesia/Blood Transfusion Reactions: No Reported Reaction Past Psychological History: Anxiety, Depression Additional Psychological History / Comment(s): Pt has had multiple psychiatric admissions for depression/suicide attempts. Pt resides with his brother in [place]. He does not drive, otherwise he is independent. Smoking Status: Former smoker Past Alcohol Use History: None Reported Additional Past Alcohol Use History / Comment(s): Pt started smoking in 2009 and quit in 2019. Past Drug Use History: None Reported Additional Drug Use History / Comment(s): Occasional - Past Family History Mother Family Medical History: CVA/TIA Father Family Medical History: Hyperlipidemia, Hypertension Additional Family Medical History / Comment(s): . General Exam Limitations: no limitations General appearance: alert, in no apparent distress Head exam: Present: normocephalic Eye exam: Present: normal appearance ENT exam: Present: mucous membranes dry Neck exam: Present: normal inspection Respiratory exam: Present: normal lung sounds bilaterally Cardiovascular Exam: Present: tachycardia GI/Abdominal exam: Present: soft. Absent: tenderness Extremities exam: Present: normal inspection Neurological exam: Present: alert Psychiatric exam: Present: flat affect Skin exam: Present: normal color Course Vital Signs 10/27/20 18:49 Temperature 97.7 F Pulse Rate 148 H Respiratory 32 H Rate Blood Pressure 134/60 O2 Sat by Pulse 100 Oximetry EKG Findings - EKG Comments: EKG Findings:: Sinus tachycardia with a rate of 144. MA 114. QRS 96. QT 36. QTc 442. Right axis. No acute ST change. Poor R-wave progression. Medical Decision Making - Medical Decision Making Patient reevaluated and updated. Case discussed with Dr. Valenzuela who will admit his patient. Dr. Montoya been paged for consult. Admission orders written. - Lab Data Result diagrams: 10/27/20 19:00 10/27/20 19:00 Lab Results 10/27/20 10/27/20 10/27/20 Range/Units 18:51 19:00 19:00 WBC 31.6 H (3.8-10.6) k/uL RBC 5.05 (4.30-5.90) m/uL Hgb 16.2 (13.0-17.5) gm/dL Hct 50.2 (39.0-53.0) % MCV 99.4 D (80.0-100.0) fL MCH 32.1 (25.0-35.0) pg MCHC 32.3 (31.0-37.0) g/dL RDW 12.8 (11.5-15.5) % Plt Count 441 (150-450) k/uL MPV 7.5 Neutrophils % 87 % Lymphocytes % 8 % Monocytes % 5 % Eosinophils % 1 % Basophils % 0 % Neutrophils # 27.4 H (1.3-7.7) k/uL Lymphocytes # 2.4 (1.0-4.8) k/uL Monocytes # 1.5 H (0-1.0) k/uL Eosinophils # 0.2 (0-0.7) k/uL Basophils # 0.1 (0-0.2) k/uL Hypochromasia Slight PT 10.0 (9.0-12.0) sec INR 0.9 (<1.2) APTT 22.8 (22.0-30.0) sec Sodium (137-145) mmol/L Potassium (3.5-5.1) mmol/L Chloride (98-107) mmol/L Carbon Dioxide (22-30) mmol/L Anion Gap mmol/L BUN (9-20) mg/dL Creatinine (0.66-1.25) mg/dL Est GFR (CKD-EPI)AfAm (>60 ml/min/1.73 sqM) Est GFR (CKD-EPI)NonAf (>60 ml/min/1.73 sqM) Glucose (74-99) mg/dL POC Glucose (mg/dL) >600 H (75-99) mg/dL POC Glu [employer] Mathematics Teacher ID Chasity Lema Calcium (8.4-10.2) mg/dL Magnesium (1.6-2.3) mg/dL Total Bilirubin (0.2-1.3) mg/dL AST (17-59) U/L ALT (4-49) U/L Alkaline Phosphatase (38-126) U/L Total Protein (6.3-8.2) g/dL Albumin (3.5-5.0) g/dL Acetone, Qual (Negative) 10/27/20 10/27/20 Range/Units 19:00 19:00 WBC (3.8-10.6) k/uL RBC (4.30-5.90) m/uL Hgb (13.0-17.5) gm/dL Hct (39.0-53.0) % MCV (80.0-100.0) fL MCH (25.0-35.0) pg MCHC (31.0-37.0) g/dL RDW (11.5-15.5) % Plt Count (150-450) k/uL MPV Neutrophils % % Lymphocytes % % Monocytes % % Eosinophils % % Basophils % % Neutrophils # (1.3-7.7) k/uL Lymphocytes # (1.0-4.8) k/uL Monocytes # (0-1.0) k/uL Eosinophils # (0-0.7) k/uL Basophils # (0-0.2) k/uL Hypochromasia PT (9.0-12.0) sec INR (<1.2) APTT (22.0-30.0) sec Sodium 142 (137-145) mmol/L Potassium 6.2 H* (3.5-5.1) mmol/L Chloride 102 (98-107) mmol/L Carbon Dioxide <5 L* (22-30) mmol/L Anion Gap mmol/L BUN 33 H (9-20) mg/dL Creatinine 1.66 H (0.66-1.25) mg/dL Est GFR (CKD-EPI)AfAm 66 (>60 ml/min/1.73 sqM) Est GFR (CKD-EPI)NonAf 57 (>60 ml/min/1.73 sqM) Glucose 743 H* (74-99) mg/dL POC Glucose (mg/dL) (75-99) mg/dL POC Glu [employer] Mathematics Teacher ID Calcium 9.6 (8.4-10.2) mg/dL Magnesium 2.4 H (1.6-2.3) mg/dL Total Bilirubin 0.3 (0.2-1.3) mg/dL AST 16 L (17-59) U/L ALT 15 (4-49) U/L Alkaline Phosphatase 138 H (38-126) U/L Total Protein 7.8 (6.3-8.2) g/dL Albumin 5.4 H (3.5-5.0) g/dL Acetone, Qual Positive (Negative) Critical Care Time Critical Care Time: Yes Total Critical Care Time: 32 Disposition Clinical Impression: DKA (diabetic ketoacidoses) Disposition: ADMITTED IP TO THIS [facility] Condition: Critical Is patient prescribed a controlled substance at d/c from ED?: No Referrals: Brown Valenzuela MD [Primary Care Provider] - 1-2 days Decision Time: 19:57
[2020-10-27 19:08] LABS: Basophils # (A) 0.1 k/uL (0-0.2); Basophils % (A) 0 %; Eosinophils # (A) 0.2 k/uL (0-0.7); Eosinophils % (A) 1 %; HCT 50.2 % (39.0-53.0); HGB 16.2 gm/dL (13.0-17.5); Hypochromasia Slight; Lymphocytes # (A) 2.4 k/uL (1.0-4.8); Lymphocytes % (A) 8 %; MCH 32.1 pg (25.0-35.0); MCHC 32.3 g/dL (31.0-37.0); Mean Platelet Volume 7.5; Monocytes # (A) 1.5 k/uL (0-1.0); Monocytes % (A) 5 %; Neutrophils # (A) 27.4 k/uL (1.3-7.7); Neutrophils % (A) 87 %; Platelet Count 441 k/uL (150-450); RBC 5.05 m/uL (4.30-5.90); RDW 12.8 % (11.5-15.5); WBC 31.6 k/uL (3.8-10.6)
[2020-10-27 19:12] LABS: MCV 99.4 fL (80.0-100.0)
[2020-10-27 19:18] LABS: INR 0.9 (<1.2); Partial Thromboplastin Time 22.8 sec (22.0-30.0)
[2020-10-27] MEDS: INSULIN REGULAR 100 UNIT in SODIUM CHLORIDE 0.9% 100 ML IV SCH (19:24)
--- NOTE | 2020-10-27 19:28 | XR ---
EXAMINATION TYPE: XR chest 1V portable DATE OF EXAM: 10/27/2020 COMPARISON: 09/06/2020 HISTORY: Leukocytosis TECHNIQUE: Single view FINDINGS: Heart and mediastinum are normal. Lungs are clear. Diaphragm is normal. Bony thorax is inta ct. There are chest leads. IMPRESSION: Normal chest. No change.
[2020-10-27 19:31] LABS: ALT 15 U/L (4-49); AST 16 U/L (17-59); African American GFR (CKD) 66 (>60 ml/min/1.73 sqM); Albumin 5.4 g/dL (3.5-5.0); Alkaline Phosphatase 138 U/L (38-126); Blood Urea Nitrogen 33 mg/dL (9-20); Calcium 9.6 mg/dL (8.4-10.2); Chloride 102 mmol/L (98-107); Magnesium 2.4 mg/dL (1.6-2.3); Non-African American GFR(CKD) 57 (>60 ml/min/1.73 sqM); Sodium 142 mmol/L (137-145); Total Bilirubin 0.3 mg/dL (0.2-1.3); Total Protein 7.8 g/dL (6.3-8.2)
[2020-10-27 19:42] LABS: Glucose 743 mg/dL (74-99); Potassium 6.2 mmol/L (3.5-5.1)
[2020-10-27 19:44] LABS: Carbon Dioxide <5 mmol/L (22-30)
[2020-10-27] MEDS ORDERED: NALOXONE 0.4 MG/ML 1 ML VIAL IV PRN (20:00)
[2020-10-27 20:18] LABS: Appearance,Urine Clear (Clear); Bilirubin,Urine Negative (Negative); Blood,Urine Negative (Negative); Color,Urine Colorless; Glucose,Urine (UA) 4+ (Negative); Leukocyte Esterase,Urine Negative (Negative); Nitrite,Urine Negative (Negative); Protein,Urine Trace (Negative); Specific Gravity,Urine 1.024 (1.001-1.035); Urobilinogen,Urine <2.0 mg/dL (<2.0)
[2020-10-27 20:29] LABS: Ketones,Urine 4+ (Negative)
[2020-10-27] MEDS: PANTOPRAZOLE 40 MG/10 ML VIAL IV SCH (20:38)
[2020-10-27 20:42] LABS: Glucose,Whole Blood 566 mg/dL (75-99)
[2020-10-27 21:45] LABS: Glucose,Whole Blood 343 mg/dL (75-99)
[2020-10-27 21:54] LABS: Glucose,Whole Blood 357 mg/dL (75-99)
[2020-10-27] MEDS: SODIUM CHLORIDE 0.9% 1,000 ML IV SCH (22:52)
[2020-10-27 23:07] LABS: Glucose,Whole Blood 246 mg/dL (75-99)
[2020-10-27] MEDS: D5-0.45% NACL WITH KCL 20MEQ/L 1,000 ML IV SCH (23:07)
[2020-10-27 23:57] LABS: Glucose,Whole Blood 217 mg/dL (75-99)
[2020-10-28] MEDS: SODIUM CHLORIDE 0.9% 1,000 ML IV SCH ×2 (00:27→01:30)
[2020-10-28 01:03] LABS: Glucose,Whole Blood 203 mg/dL (75-99)
[2020-10-28 01:04] LABS: African American GFR (CKD) >90 (>60 ml/min/1.73 sqM); Anion Gap 16 mmol/L; Blood Urea Nitrogen 28 mg/dL (9-20); Carbon Dioxide 12 mmol/L (22-30); Chloride 117 mmol/L (98-107); Glucose 249 mg/dL (74-99); Non-African American GFR(CKD) >90 (>60 ml/min/1.73 sqM); Potassium 4.4 mmol/L (3.5-5.1); Sodium 145 mmol/L (137-145)
[2020-10-28 02:07] LABS: Glucose,Whole Blood 184 mg/dL (75-99)
[2020-10-28 03:02] LABS: Glucose,Whole Blood 169 mg/dL (75-99)
[2020-10-28 03:57] LABS: Glucose,Whole Blood 157 mg/dL (75-99)
[2020-10-28 04:13] LABS: HCT 42.2 % (39.0-53.0); HGB 15.1 gm/dL (13.0-17.5); MCH 32.9 pg (25.0-35.0); MCHC 35.9 g/dL (31.0-37.0); Mean Platelet Volume 6.7; Platelet Count 340 k/uL (150-450); RBC 4.61 m/uL (4.30-5.90); RDW 12.8 % (11.5-15.5); WBC 24.6 k/uL (3.8-10.6)
[2020-10-28 04:24] LABS: MCV 91.6 fL (80.0-100.0)
[2020-10-28 04:26] LABS: African American GFR (CKD) >90 (>60 ml/min/1.73 sqM); Anion Gap 9 mmol/L; Blood Urea Nitrogen 27 mg/dL (9-20); Carbon Dioxide 15 mmol/L (22-30); Chloride 119 mmol/L (98-107); Glucose 176 mg/dL (74-99); Magnesium 2.2 mg/dL (1.6-2.3); Non-African American GFR(CKD) >90 (>60 ml/min/1.73 sqM); Phosphorus 1.5 mg/dL (2.5-4.5); Potassium 4.3 mmol/L (3.5-5.1); Sodium 143 mmol/L (137-145)
[2020-10-28] MEDS: INSULIN REGULAR 100 UNIT in SODIUM CHLORIDE 0.9% 100 ML IV SCH (04:34)
[2020-10-28] MEDS ORDERED: Phosphorus Replacement Protoco 1 EACH MISC MISCELLANE PRN (04:43)
[2020-10-28 05:00] LABS: Glucose,Whole Blood 133 mg/dL (75-99)
[2020-10-28] MEDS: D5-0.45% NACL WITH KCL 20MEQ/L 1,000 ML IV SCH ×3 (05:14→18:31)
[2020-10-28] MEDS: SODIUM PHOSPHATE 10 MMOL in SODIUM CHLORIDE 0.9% 250 ML IVPB SCH ×2 (05:14→08:29)
[2020-10-28 06:00] LABS: Glucose,Whole Blood 152 mg/dL (75-99)
[2020-10-28 06:55] LABS: Glucose,Whole Blood 137 mg/dL (75-99)
[2020-10-28 08:04] LABS: Glucose,Whole Blood 160 mg/dL (75-99)
[2020-10-28] MEDS: PANTOPRAZOLE 40 MG/10 ML VIAL IV SCH (08:31)
[2020-10-28 09:08] LABS: Glucose,Whole Blood 170 mg/dL (75-99)
[2020-10-28] MEDS: ONDANSETRON 4 MG/2 ML VIAL IVP PRN ×2 (09:50→17:23)
[2020-10-28 09:57] LABS: Glucose,Whole Blood 222 mg/dL (75-99)
[2020-10-28 11:18] LABS: Glucose,Whole Blood 202 mg/dL (75-99)
[2020-10-28 11:54] LABS: Glucose,Whole Blood 189 mg/dL (75-99)
--- NOTE | 2020-10-28 11:55 | P.CNPUL ---
History of Present Illness Consult date: 10/28/20 Requesting physician: Brown Valenzuela Reason for consult: other (Acute DKA) Chief complaint: Nausea and vomiting History of present illness: This is a 25-year-old white male presented to the emergency room yesterday complaining of intermittent episodes of nausea and vomiting, he was concerned about his sugar being high, patient is not very compliant with his insulin, indeed his workup in the ER showed that the patient has acute diabetic ketoacidosis. Patient was noted to have blood sugar as high as 743, his bicarb was 5, he had a significant anion gap metabolic acidosis, abnormal renal profile with creatinine of 1.66, he had leukocytosis with WBC count of 31.6, positive ketones, negative PCR for COVID-19 infection. Patient was admitted to the ICU, placed on the DKA protocol, and I was asked to see him on consultation. During my evaluation, patient is not a great historian, does not seem to be very cooperative, obviously the patient is having intermittent episodes of nausea and vomiting, and Zofran was prescribed by the admitting physician. He is presently on D5 45 at 150 ML per hour, he is also on insulin at 1.8 units per hour, and 0.9 normal saline at KVO. Review of Systems Constitutional: Denies fever chills and weight loss. HEENT: Negative. GI: Nausea vomiting, no abdominal pain. Pulmonary: Negative. Cardiac: Negative. Genitourinary: Negative. Musculoskeletal: Negative. Skin: Negative. Neurologic: Negative. Hematologic: Negative. Psychiatric: History of severe depression and history of generalized anxiety disorder. Past Medical History Past Medical History: Asthma, Diabetes Mellitus, Skin Disorder Additional Past Medical History / Comment(s): IDDM type I, neuropathy bilateral feet, DKA, eczema. History of multiple psychiatric hospitalizations or suicide attempts. History of Any Multi-Drug Resistant Organisms: None Reported Past Surgical History: Adenoidectomy Additional Past Surgical History / Comment(s): 2002 Past Anesthesia/Blood Transfusion Reactions: No Reported Reaction Smoking Status: Current some day smoker, Light tobacco smoker - Past Family History Mother Family Medical History: CVA/TIA Father Family Medical History: Hyperlipidemia, Hypertension Additional Family Medical History / Comment(s): . Medications and Allergies Home Medications Medication Instructions Recorded Confirmed Type INSULIN ASPART (NovoLOG) [NovoLOG 10 unit SQ AC-TID 08/27/20 10/27/20 History (formulary)] Insulin Detemir (Levemir) [Levemir] 25 unit SQ DAILY 08/27/20 10/27/20 History Gabapentin 600 mg PO BID 09/18/20 10/27/20 History traZODone HCL [Desyrel] 100 - 200 mg PO HS 09/18/20 10/27/20 History Allergies Allergy/AdvReac Type Severity Reaction Status Date / Time No Known Allergies Allergy Verified 10/27/20 19:59 Physical Exam Vitals: Vital Signs Temp Pulse Resp BP Pulse Ox 10/28/20 11:00 92 16 136/97 97 10/28/20 10:00 101 H 16 114/84 97 10/28/20 09:00 97.9 F 98 15 115/82 97 10/28/20 08:00 101 H 15 129/95 96 10/28/20 07:00 100 12 126/89 96 10/28/20 06:30 103 H 11 L 126/89 96 10/28/20 06:00 107 H 10 L 111/78 96 10/28/20 05:30 125 H 12 111/78 97 10/28/20 05:00 106 H 10 L 138/100 96 10/28/20 04:30 105 H 14 138/100 96 10/28/20 04:00 97.7 F 107 H 12 110/70 98 10/28/20 03:30 109 H 14 110/70 95 10/28/20 03:00 113 H 13 116/70 95 10/28/20 02:30 114 H 8 L 116/70 96 10/28/20 02:00 114 H 18 112/68 95 10/28/20 01:30 116 H 16 112/68 95 10/28/20 01:00 122 H 18 119/79 95 10/28/20 00:30 124 H 10 L 119/79 98 10/28/20 00:01 129 H 17 119/79 98 10/28/20 00:00 97.5 F L 130 H 16 118/71 98 10/27/20 23:30 125 H 15 118/71 96 10/27/20 23:00 124 H 5 L 96 10/27/20 22:30 140 H 11 L 97 10/27/20 22:00 97.4 F L 137 H 11 L 98 10/27/20 21:30 138 H 120/82 99 10/27/20 21:02 97.2 F L 137 H 22 120/82 100 10/27/20 21:00 134 H 120/82 100 10/27/20 20:30 134 H 134/80 100 10/27/20 20:00 142 H 134/80 100 10/27/20 19:30 141 H 134/80 100 10/27/20 19:00 134/80 100 10/27/20 18:52 88 L 10/27/20 18:49 97.7 F 148 H 32 H 134/60 100 Intake and Output 10/27/20 10/28/20 10/28/20 22:59 06:59 14:59 Intake Total 260 1687.332 900 Output Total 0 1050 200 Balance 260 637.332 700 Intake: IV 260 1610 650 D5-0.45% NaCl with KCl 1200 600 20Meq/l 1,000 ml @ 150 mls/hr IV .Q6H40M [facility] Rx# :[id number] Sodium Chloride 0.9% 1, 260 160 50 000 ml @ 130 mls/hr IV . Q7H42M STA Rx#:[id number] Sodium Phosphate 10 mmol 250 In Sodium Chloride 0.9% 250 ml @ 125 mls/hr IVPB Q2H [facility] Rx#:[id number] Intake, IV Titration 77.332 250 Amount Insulin Regular 100 unit 77.332 In Sodium Chloride 0.9% 100 ml @ 0.1 UNITS/KG/HR 7.33 mls/hr IV .[id number] [facility] Rx#:[id number] Sodium Phosphate 10 mmol 250 In Sodium Chloride 0.9% 250 ml @ 125 mls/hr IVPB Q2H [facility] Rx#:[id number] Output: Urine 0 1050 0 Emesis 200 Other: Voiding Method Urinal Urinal # Voids 1 Weight 69.6 kg 69.8 kg Physical Exam: Revealed 25-year-old white male in no form of respiratory distress, however he is noted to have intermittent episodes of nausea and vomiting. Head: Atraumatic, normocephalic. HEENT:[Neck is supple.] [No neck masses.] [No thyromegaly.] [No JVD.] Chest: [Clear throughout, no crackles, no rhonchi, no wheezes.] Cardiac Exam: [Normal S1 and S2, no S3 gallop, no murmur.] Abdomen: [Soft, nontender, no megaly, no rebound, no guarding, normal bowel sounds.] Extremities: [No clubbing, no edema, no cyanosis.] Neurological Exam: [No focal neurologic deficit.] Alert and oriented 3. Psychiatric: Depressed mood, blunt affect, otherwise normal mental status examination. Results - Laboratory Findings CBC and BMP: 10/28/20 03:54 10/28/20 03:54 PT/INR, D-dimer PT 10.0 sec (9.0-12.0) 10/27/20 19:00 INR 0.9 (<1.2) 10/27/20 19:00 Abnormal lab findings: Abnormal Labs 10/27/20 10/27/20 10/27/20 18:51 19:00 19:00 WBC 31.6 H Neutrophils # 27.4 H Monocytes # 1.5 H Potassium 6.2 H* Chloride Carbon Dioxide <5 L* BUN 33 H Creatinine 1.66 H Glucose 743 H* POC Glucose (mg/dL) >600 H Phosphorus Magnesium 2.4 H AST 16 L Alkaline Phosphatase 138 H Albumin 5.4 H Urine Protein Urine Glucose (UA) Urine Ketones 10/27/20 10/27/20 10/27/20 20:03 20:40 21:43 WBC Neutrophils # Monocytes # Potassium Chloride Carbon Dioxide BUN Creatinine Glucose POC Glucose (mg/dL) 566 H 343 H Phosphorus Magnesium AST Alkaline Phosphatase Albumin Urine Protein Trace H Urine Glucose (UA) 4+ H Urine Ketones 4+ H 10/27/20 10/27/20 10/27/20 21:52 23:05 23:55 WBC Neutrophils # Monocytes # Potassium Chloride Carbon Dioxide BUN Creatinine Glucose POC Glucose (mg/dL) 357 H 246 H 217 H Phosphorus Magnesium AST Alkaline Phosphatase Albumin Urine Protein Urine Glucose (UA) Urine Ketones 10/28/20 10/28/20 10/28/20 00:18 00:18 01:01 WBC Neutrophils # Monocytes # Potassium Chloride 117 H Carbon Dioxide 12 L BUN 28 H Creatinine Glucose 249 H POC Glucose (mg/dL) 203 H Phosphorus 1.7 L Magnesium AST Alkaline Phosphatase Albumin Urine Protein Urine Glucose (UA) Urine Ketones 10/28/20 10/28/20 10/28/20 02:06 03:00 03:54 WBC Neutrophils # Monocytes # Potassium Chloride 119 H Carbon Dioxide 15 L BUN 27 H Creatinine 0.65 L Glucose 176 H POC Glucose (mg/dL) 184 H 169 H Phosphorus 1.5 L Magnesium AST Alkaline Phosphatase Albumin Urine Protein Urine Glucose (UA) Urine Ketones 10/28/20 10/28/20 10/28/20 03:54 03:56 04:58 WBC 24.6 H Neutrophils # Monocytes # Potassium Chloride Carbon Dioxide BUN Creatinine Glucose POC Glucose (mg/dL) 157 H 133 H Phosphorus Magnesium AST Alkaline Phosphatase Albumin Urine Protein Urine Glucose (UA) Urine Ketones 10/28/20 10/28/20 10/28/20 05:58 06:54 08:02 WBC Neutrophils # Monocytes # Potassium Chloride Carbon Dioxide BUN Creatinine Glucose POC Glucose (mg/dL) 152 H 137 H 160 H Phosphorus Magnesium AST Alkaline Phosphatase Albumin Urine Protein Urine Glucose (UA) Urine Ketones 10/28/20 10/28/20 10/28/20 09:03 09:55 11:17 WBC Neutrophils # Monocytes # Potassium Chloride Carbon Dioxide BUN Creatinine Glucose POC Glucose (mg/dL) 170 H 222 H 202 H Phosphorus Magnesium AST Alkaline Phosphatase Albumin Urine Protein Urine Glucose (UA) Urine Ketones - Diagnostic Findings Chest x-ray: image reviewed (Chest x-ray showed no evidence of active disease.) Assessment and Plan Assessment: Impression: Acute diabetic ketoacidosis with hyperglycemia, dehydration, on iron gap metabolic acidosis, and positive ketones. Leukocytosis secondary to above, no clear-cut evidence of infection. Multiple admissions for DKA mostly because of noncompliance. History of major depression and generalized anxiety disorder. History of mild intermittent asthma, presently inactive. History of type 1 diabetes. History of marijuana and stimulant use. Recommendation: Continue present treatment plan including DKA protocol. Continue insulin. Monitor labs closely as per protocol. We will likely transfer out of the ICU in the next 24 hours. However the patient is high risk for readmission mostly because of noncompliance, May consider psychiatric evaluation again on this admission before discharge home. We'll continue to follow. Time with Patient: Greater than 30
[2020-10-28 12:02] VITALS: BMI 19.2
[2020-10-28 13:27] LABS: Glucose,Whole Blood 227 mg/dL (75-99)
[2020-10-28 14:11] LABS: Glucose,Whole Blood 202 mg/dL (75-99)
--- NOTE | 2020-10-28 15:39 | HP ---
HISTORY AND PHYSICAL CHIEF COMPLAINT: DKA. HISTORY OF PRESENT ILLNESS: This is another admission for this 24-year-old depressed white male with type 1 insulin- dependent diabetes mellitus. He is in and out of the hospital whenever he decides stop taking his insulin. He states frequently, just as he did this time, that he, "does not know what happened." He came in with a blood sugar of over 500, profoundly dehydrated and with lactic acidosis and DKA. Pulse was 140. REVIEW OF SYSTEMS: He is nauseated but he has had no headaches, chest pain, abdominal pain, etc. Past medical history, family history and personal and social histories are all otherwise unremarkable and unchanged. PHYSICAL EXAMINATION: Blood pressure is 98/54 with a pulse of 145, respirations of 40 and he is afebrile. In general, appeared to be slender and dehydrated. He was slightly lethargic. He was nauseated. Head, ears, eyes, nose, mouth and throat were normal except for dry mucous membranes. Chest was clear. Cardiac exam demonstrates sinus tachycardia and the abdomen soft and nontender. Extremities: Normal. Neurologically he is intact. He is admitted to the hospital diagnoses. 1. Diabetic ketoacidosis. 2. Dehydration. 3. Type 1 diabetes mellitus. 4. Depression. PLAN: 1. ICU care with DKA protocol. 2. Psychiatric evaluation once again. MMODL / IJN: [id number] /
[2020-10-28 15:42] LABS: Glucose,Whole Blood 199 mg/dL (75-99)
[2020-10-28 16:58] LABS: Glucose,Whole Blood 207 mg/dL (75-99)
[2020-10-28 18:07] LABS: Glucose,Whole Blood 202 mg/dL (75-99)
[2020-10-28 19:02] LABS: Glucose,Whole Blood 198 mg/dL (75-99)
[2020-10-28 20:03] LABS: Glucose,Whole Blood 209 mg/dL (75-99)
[2020-10-28 20:16] LABS: Potassium 3.9 mmol/L (3.5-5.1)
[2020-10-28 21:01] LABS: Glucose,Whole Blood 220 mg/dL (75-99)
[2020-10-28] MEDS: INSULIN DETEMIR (LEVEMIR) 100 UNIT/ML SYR SQ SCH (21:07)
[2020-10-28] MEDS: INSULIN ASPART (NovoLOG) 100 UNIT/ML VIAL SQ SCH (21:07)
[2020-10-29 01:42] LABS: Glucose,Whole Blood 138 mg/dL (75-99)
[2020-10-29] MEDS: D5-0.45% NACL WITH KCL 20MEQ/L 1,000 ML IV SCH ×4 (02:07→22:28)
[2020-10-29] MEDS: INSULIN REGULAR 100 UNIT in SODIUM CHLORIDE 0.9% 100 ML IV SCH ×2 (02:08→13:03)
[2020-10-29] MEDS: ONDANSETRON 4 MG/2 ML VIAL IVP PRN ×2 (04:58→15:47)
[2020-10-29] MEDS: SODIUM CHLORIDE 0.9% 1,000 ML IV SCH (04:58)
[2020-10-29 05:40] LABS: African American GFR (CKD) >90 (>60 ml/min/1.73 sqM); Anion Gap 6 mmol/L; Blood Urea Nitrogen 11 mg/dL (9-20); Calcium 8.8 mg/dL (8.4-10.2); Carbon Dioxide 24 mmol/L (22-30); Chloride 107 mmol/L (98-107); Glucose 133 mg/dL (74-99); Magnesium 1.9 mg/dL (1.6-2.3); Non-African American GFR(CKD) >90 (>60 ml/min/1.73 sqM); Phosphorus 1.8 mg/dL (2.5-4.5); Potassium 3.7 mmol/L (3.5-5.1); Sodium 137 mmol/L (137-145)
[2020-10-29] MEDS ORDERED: Potassium Replacement Protocol 1 EACH MISC MISCELLANE PRN (05:51)
[2020-10-29] MEDS: POTASSIUM CHLORIDE 10 MEQ in WATER FOR INJECTION 1 100ML.BAG IVPB SCH ×2 (05:59→07:04)
[2020-10-29] MEDS: SODIUM PHOSPHATE 10 MMOL in SODIUM CHLORIDE 0.9% 250 ML IVPB SCH ×2 (06:29→09:05)
[2020-10-29 06:57] LABS: Glucose,Whole Blood 156 mg/dL (75-99)
[2020-10-29] MEDS: INSULIN ASPART (NovoLOG) 100 UNIT/ML VIAL SQ SCH ×4 (07:00→20:32)
[2020-10-29] MEDS: PANTOPRAZOLE 40 MG/10 ML VIAL IV SCH (09:05)
--- NOTE | 2020-10-29 11:40 | P.CN ---
Psychiatric Consult - . Consult date: 10/29/20 Consult:: 10/29/20 11:10 Reason for admission: This patient was referred for psychiatric consult because of his history of depression and anxiety. He was admitted to Hospital for episodes of nausea and vomiting and was dehydrated. History of present illness: this patient told me that he has been struggling with the depression and anxiety for a long time. He was admitted to Hospital because of diabetic ketoacidosis. It is not clear if he was not taking his insulin deliberately. He was at his friend's house where he was acting bizarre and was subsequently brought over to the hospital. He does not live with his mother. I did speak to staff nurse who told me that he sleeps constantly. His affect is flattened. He does get angry time to time. He does not want to talk. He told me that that he feels tired and did not want to volunteer information and most of the time kept quiet and would not answer questions. He was laying in the bed with his eyes closed. Past history: He did admit to multiple psychiatric hospital admissions for depression and anxiety. When asked when his last admission was he stated he does not know. He does not go to any outpatient treatment. Family history: When asked about history of mental illness or suicide in the family he stated he does not know that. He stated that almost everybody in the family drinks alcohol. Medical history: He has juvenile onset diabetes and was admitted to Hospital b ecause the diabetes bad ketoacidosis. 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 Medication history: He stated he takes insulin for diabetes mellitus. He denied being on any medication for depression or anxiety. Substance abuse history: He denied any history of alcohol or drug abuse. Suicide or homicide thoughts: He denied any history of or thoughts of trying to hurt himself or hurt somebody else. History of psychological trauma: He denied any such history. Mental status examination: This patient appears to be of his stated age he speaks in a very low monotonous, monosyllable voice and keeps his eyes closed and it is very difficult to communicate with him. I did speak to staff nurse who also provided me with a similar history. He is depressed, preoccupied and withdrawn. His mood and affect is depressed. His behavior is uncooperative. I was unable to assess any hallucinations or delusions at this time. I was also not able to assess his memory or other cognitive functions because of his lack of cooperation. Diagnostic impression: Major depression recurrent severe Generalized anxiety disorder Treatment recommendations: This patient lives alone all by himself and he is has brittle diabetes, he does not take insulin. He is not able to care for his basic needs including his medication. Therefore he does meet criteria for psychiatric hospitalization because he does not understand the need for treatment and he is not able to care for his basic needs. I recommended that he be transferred to psychiatric unit whenever he is medically stable.
--- NOTE | 2020-10-29 12:45 | P.PN ---
Subjective Progress Note Date: 10/29/20 Principal diagnosis: Acute diabetic ketoacidosis This is a 25-year-old white male presented to the emergency room yesterday complaining of intermittent episodes of nausea and vomiting, he was concerned about his sugar being high, patient is not very compliant with his insulin, i ndeed his workup in the ER showed that the patient has acute diabetic ketoacidosis. Patient was noted to have blood sugar as high as 743, his bicarb was 5, he had a significant anion gap metabolic acidosis, abnormal renal profile with creatinine of 1.66, he had leukocytosis with WBC count of 31.6, positive ketones, negative PCR for COVID-19 infection. Patient was admitted to the ICU, placed on the DKA protocol, and I was asked to see him on consultation. During my evaluation, patient is not a great historian, does not seem to be very cooperative, obviously the patient is having intermittent episodes of nausea and vomiting, and Zofran was prescribed by the admitting physician. He is presently on D5 45 at 150 ML per hour, he is also on insulin at 1.8 units per hour, and 0.9 normal saline at KVO Patient was reevaluated today on 10/29/2020, patient is doing great, relatively asymptomatic, he is off insulin drip, remains on D5 45 at 50 ML per hour, he is on Levemir insulin and he is also on insulin as per scale. His anion gap has resolved, his labs were reviewed, patient is doing well, and I plan to transfer the patient out of the ICU. Seen yesterday by psychiatry on consultation, patient is noted to be severely depressed. patient meets criteria for psychiatric admission, and this will be decided upon by the admitting physician/Dr. Valenzuela, [facility], I will give the patient to transfer out of the ICU to a regular medical floor. Objective - Vital Signs Vital signs: Vital Signs Temp 97.8 F 10/29/20 04:00 Pulse 66 10/29/20 12:00 Resp 16 10/29/20 12:00 BP 117/82 10/29/20 12:00 Pulse Ox 97 10/29/20 12:00 Intake & Output 10/28/20 10/29/20 10/29/20 18:59 06:59 18:59 Intake Total 2266 1200 550 Output Total 1400 1100 350 Balance 866 100 200 Weight 69.8 kg 72.3 kg Intake: IV 2009 1200 550 D5-0.45% NaCl with KCl 1800 900 300 20Meq/l 1,000 ml @ 150 mls/hr IV .Q6H40M [facility] Rx# :[id number] Potassium Chloride 10 meq 100 In Water For Injection 1 100ml.bag @ 100 mls/hr IVPB Q1H [facility] Rx#: [id number] Sodium Chloride 0.9% 1, 210 200 000 ml @ 130 mls/hr IV . Q7H42M STA Rx#:[id number] Sodium Phosphate 10 mmol 250 In Sodium Chloride 0.9% 250 ml @ 125 mls/hr IVPB Q2H [facility] Rx#:[id number] Intake, IV Titration 256 Amount Insulin Regular 100 unit 6 In Sodium Chloride 0.9% 100 ml @ 0.1 UNITS/KG/HR 7.33 mls/hr IV .[id number] [facility] Rx#:[id number] Sodium Phosphate 10 mmol 250 In Sodium Chloride 0.9% 250 ml @ 125 mls/hr IVPB Q2H [facility] Rx#:[id number] Output: Urine 950 1100 350 Emesis 450 Other: Voiding Method Urinal Urinal # Voids 1 - Exam Physical Exam: Revealed 25-year-old white male in no form of respiratory distress sleeping, Head: Atraumatic, normocephalic. HEENT:[Neck is supple.] [No neck masses.] [No thyromegaly.] [No JVD.] Chest: [Clear throughout, no crackles, no rhonchi, no wheezes.] Cardiac Exam: [Normal S1 and S2, no S3 gallop, no murmur.] Abdomen: [Soft, nontender, no megaly, no rebound, no guarding, normal bowel sounds.] Extremities: [No clubbing, no edema, no cyanosis.] Neurological Exam: [No focal neurologic deficit.] Alert and oriented 3. Psychiatric: Depressed mood, blunt affect, otherwise normal mental status examination. - Labs CBC & Chem 7: 10/28/20 03:54 10/29/20 04:55 Labs: Abnormal Lab Results - Last 24 Hours (Table) 10/28/20 10/28/20 10/28/20 Range/Units 13:26 14:09 15:41 Sodium (137-145) mmol/L Chloride (98-107) mmol/L Creatinine (0.66-1.25) mg/dL Glucose (74-99) mg/dL POC Glucose (mg/dL) 227 H 202 H 199 H (75-99) mg/dL Phosphorus (2.5-4.5) mg/dL 10/28/20 10/28/20 10/28/20 Range/Units 16:57 18:05 19:00 Sodium (137-145) mmol/L Chloride (98-107) mmol/L Creatinine (0.66-1.25) mg/dL Glucose (74-99) mg/dL POC Glucose (mg/dL) 207 H 202 H 198 H (75-99) mg/dL Phosphorus (2.5-4.5) mg/dL 10/28/20 10/28/20 10/28/20 Range/Units 19:33 20:02 20:59 Sodium 135 L (137-145) mmol/L Chloride 108 H (98-107) mmol/L Creatinine (0.66-1.25) mg/dL Glucose (74-99) mg/dL POC Glucose (mg/dL) 209 H 220 H (75-99) mg/dL Phosphorus (2.5-4.5) mg/dL 10/29/20 10/29/20 10/29/20 Range/Units 01:41 04:55 06:56 Sodium (137-145) mmol/L Chloride (98-107) mmol/L Creatinine 0.57 L (0.66-1.25) mg/dL Glucose 133 H (74-99) mg/dL POC Glucose (mg/dL) 138 H 156 H (75-99) mg/dL Phosphorus 1.8 L (2.5-4.5) mg/dL Assessment and Plan Assessment: Impression: Acute diabetic ketoacidosis with hyperglycemia, dehydration, on iron gap metabolic acidosis, and positive ketones. Leukocytosis secondary to above, no clear-cut evidence of infection. Multiple admissions for DKA mostly because of noncompliance. History of major depression and generalized anxiety disorder. History of mild intermittent asthma, presently inactive. History of type 1 diabetes. History of marijuana and stimulant use. Recommendation: Clear to be transferred out of the ICU. Admitting physician to transfer to psychiatry and follow-up on him while he is on the psychiatry unit. We will sign off and see the patient on when necessary basis. Time with Patient: Less than 30
[2020-10-29 12:53] LABS: Glucose,Whole Blood 191 mg/dL (75-99)
[2020-10-29 16:46] LABS: Hemoglobin A1C 11.1 % (4.0-6.0)
[2020-10-29 16:59] LABS: Glucose,Whole Blood 169 mg/dL (75-99)
[2020-10-29 20:19] LABS: Glucose,Whole Blood 320 mg/dL (75-99)
[2020-10-29] MEDS: INSULIN DETEMIR (LEVEMIR) 100 UNIT/ML SYR SQ SCH (20:32)
[2020-10-30 01:11] LABS: Glucose,Whole Blood 75 mg/dL (75-99)
[2020-10-30] MEDS: INSULIN REGULAR 100 UNIT in SODIUM CHLORIDE 0.9% 100 ML IV SCH (04:03)
[2020-10-30 06:54] LABS: Glucose,Whole Blood 128 mg/dL (75-99)
[2020-10-30] MEDS: INSULIN ASPART (NovoLOG) 100 UNIT/ML VIAL SQ SCH ×2 (07:05→12:36)
[2020-10-30] MEDS: PANTOPRAZOLE 40 MG/10 ML VIAL IV SCH (08:28)
[2020-10-30 09:04] VITALS: BP 132/88; PULSE 70; RESP 16; TEMP 98.3
[2020-10-30 11:50] LABS: Glucose,Whole Blood 209 mg/dL (75-99)
--- NOTE | 2020-10-30 12:32 | P.PN ---
Subjective Progress Note Date: 10/30/20 Principal diagnosis: Acute diabetic ketoacidosis This is a 25-year-old white male presented to the emergency room yesterday complaining of intermittent episodes of nausea and vomiting, he was concerned about his sugar being high, patient is not very compliant with his insulin, i ndeed his workup in the ER showed that the patient has acute diabetic ketoacidosis. Patient was noted to have blood sugar as high as 743, his bicarb was 5, he had a significant anion gap metabolic acidosis, abnormal renal profile with creatinine of 1.66, he had leukocytosis with WBC count of 31.6, positive ketones, negative PCR for COVID-19 infection. Patient was admitted to the ICU, placed on the DKA protocol, and I was asked to see him on consultation. During my evaluation, patient is not a great historian, does not seem to be very cooperative, obviously the patient is having intermittent episodes of nausea and vomiting, and Zofran was prescribed by the admitting physician. He is presently on D5 45 at 150 ML per hour, he is also on insulin at 1.8 units per hour, and 0.9 normal saline at KVO Patient was reevaluated today on 10/29/2020, patient is doing great, relatively asymptomatic, he is off insulin drip, remains on D5 45 at 50 ML per hour, he is on Levemir insulin and he is also on insulin as per scale. His anion gap has resolved, his labs were reviewed, patient is doing well, and I plan to transfer the patient out of the ICU. Seen yesterday by psychiatry on consultation, patient is noted to be severely depressed. patient meets criteria for psychiatric admission, and this will be decided upon by the admitting physician/Dr[facility], [facility], I will give the patient to transfer out of the ICU to a regular medical floor. On 10/30/2020 patient seen in follow-up on medical surgical floor. He is awake and alert, oriented 3, breathing comfortably, denies any specific complaints, he is on room air pulse ox of 99%, no fever or chills, vital signs have been stable, no nausea vomiting or diarrhea, he has been transitioned to Levemir and NovoLog sliding scale. His labs from yesterday showed electrolytes within normal limits, BUN of 11 creatinine 0.57, his anion gap was 6. His blood sugar this morning was 128 before breakfast, and before lunch was 209. Was seen by psychiatric services and patient was deemed to meet criteria or inpatient psychiatric services in view of his inability to meet his basic physical means by administering himself insulin Objective - Vital Signs Vital signs: Vital Signs Temp 98.3 F 10/30/20 08:22 Pulse 70 10/30/20 08:22 Resp 16 10/30/20 08:22 BP 132/88 10/30/20 08:22 Pulse Ox 99 10/30/20 08:22 Intake & Output 10/29/20 10/30/20 10/30/20 18:59 06:59 18:59 Intake Total 900 Output Total 450 Balance 450 Intake: IV 650 D5-0.45% NaCl with KCl 400 20Meq/l 1,000 ml @ 150 mls/hr IV .Q6H40M YAEL Rx# :[id number] Sodium Phosphate 10 mmol 250 In Sodium Chloride 0.9% 250 ml @ 125 mls/hr IVPB Q2H YAEL Rx#:[id number] Intake, IV Titration 250 Amount Sodium Phosphate 10 mmol 250 In Sodium Chloride 0.9% 250 ml @ 125 mls/hr IVPB Q2H YAEL Rx#:[id number] Output: Urine 350 Emesis 100 Other: Voiding Method Urinal Urinal # Voids 1 - Exam GENERAL EXAM: Alert, very pleasant, 25-year-old white male, room air with a pulse ox of 99% comfortable in no apparent distress. HEAD: Normocephalic/atraumatic. EYES: Normal reaction of pupils, equal size. Conjunctiva pink, sclera white. NOSE: Clear with pink turbinates. THROAT: No erythema or exudates. NECK: No masses, no JVD, no thyroid enlargement, no adenopathy. CHEST: No chest wall deformity. Symmetrical expansion. LUNGS: Equal air entry with clear breath sounds CVS: Regular rate and rhythm, normal S1 and S2, no gallops, no murmurs, no rubs ABDOMEN: Soft, nontender. No hepatosplenomegaly, normal bowel sounds, no guarding or rigidity. EXTREMITIES: No clubbing, no edema, no cyanosis, 2+ pulses and upper and lower extremities. MUSCULOSKELETAL: Muscle strength and tone normal. SPINE: No scoliosis or deformity SKIN: No rashes CENTRAL NERVOUS SYSTEM: Alert and oriented -3. No focal deficits, tone is normal in all 4 extremities. PSYCHIATRIC: Alert and oriented -3. Appropriate affect. Intact judgment and insight. - Labs CBC & Chem 7: 10/28/20 03:54 10/29/20 04:55 Labs: Abnormal Lab Results - Last 24 Hours (Table) 10/29/20 10/29/20 10/29/20 Range/Units 04:55 12:51 16:56 POC Glucose (mg/dL) 191 H 169 H (75-99) mg/dL Hemoglobin A1c 11.1 H (4.0-6.0) % 10/29/20 10/30/20 10/30/20 Range/Units 20:16 06:53 11:49 POC Glucose (mg/dL) 320 H 128 H 209 H (75-99) mg/dL Hemoglobin A1c (4.0-6.0) % Assessment and Plan Plan: Assessment: #1. Acute diabetic ketoacidosis with hyperglycemia, dehydration, and anion gap metabolic acidosis #2. Leukocytosis due to the above, with no clear-cut evidence of infection #3. Multiple admissions for DKA mostly because of noncompliance #4. History of major depression and generalized anxiety disorder #5. History of mild intermittent bronchial asthma, recently inactive #6. History of type 1 diabetes #7. History of marijuana and stimulant use Plan: Has remained stable in last 24 hours No acute events Patient is on a combination of Levemir and NovoLog sliding scale Continue monitoring blood sugars Patient is tolerating oral intake Awaiting a bed on the psychiatry unit Pulmonary critical care will sign off and see the patient on as-needed basis I performed a history & physical examination of the patient and discussed their management with my nurse practitioner, Alysha Kamara. I reviewed the nurse practitioner's note and agree with the documented findings and plan of care. Lung sounds are positive for clear breath sounds. The findings and the impression was discussed with the patient. I attest to the documentation by the nurse practitioner. Time with Patient: Less than 30
--- NOTE | 2020-10-30 15:06 | P.PN ---
Progress Note - Text Progress Note Date: 10/30/20 Interval History: Patient was seen today for psychiatric follow-up regarding patient's psychiatric condition. Patient appears to be often sitting at the bedside and appears to have fair hygiene and grooming. 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 He states that he has slowly been getting better in terms of his mood and also progress in his life. 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 He claims that his mood is "fine" and is denying any depression at this time or anxiety. He states that he sleeping well at night. He claims that he has not been following up with [facility] however states that he will once he is discharged. He was fairly future oriented and is currently living with his friend and boss and his girlfriend. At this time patient denies any current suicidal or homical ideations, intent or plan. Patient denies any auditory, visual hallucinations and denies any paranoia or delusions. Patient denies any side effects from the medications and has been compliant with meds. Mental Status Exam: General Appearance: Patient appears to be tall, thin stated age is alert, directable, and cooperative. Behavior: Patient is calmly seated without any agitated behavior. Appropriate Speech: Patient's speech is fluent and nonpressured. Mood/Affect: Mood is "fine", affect is congruent Suicidality/Homicidality: Patient denies having any suicidal or homicidal ideation intent or plan. Perceptions: Patient denies any visual hallucinations and denies any auditory hallucinations Though content/process: There is no evidence of any delusional thought content and thought process is linear and goal-directed. Future oriented. Memory and concentration: AOX3, grossly intact for the purposes of this session Judgment and insight: Improving mildly Assessment History of depressive disorder Generalized anxiety disorder Noncompliance with his medications Plan: -At this time patient DOES NOT meet criteria for inpatient psychiatric admission. -Would recommend the following medication changes/additions: Spoke with patient about different medication options however patient claims that his mood is okay at this point and is denying any depression or anxiety or other symptoms and does not want to be on medications at this time. -Discussed with patient the importance of medication compliance and dietary lifestyle for his diabetes, patient verbally understood and agreed. -welfare case worker to provide patient with outpatient mental health/psychiatry resources for appropriate follow up upon discharge. Patient should be provided with a [facility] follow-up appointment/referral as he is already established with them. -Communicated plan to patient's nurse -Psychiatry will sign off at this time -Please contact with any questions.
--- NOTE | 2020-10-30 18:24 | PN ---
PROGRESS NOTE DATE OF SERVICE: 10/29/2020. CHIEF COMPLAINT: DKA. HISTORY OF PRESENT ILLNESS: This gentleman's sugars are coming down and he is off the drip. He is still not eating and he is nauseated. PHYSICAL EXAMINATION: He still remains slightly lethargic. He has no complaints. Chest is clear. Cardiac exam is normal. Abdomen is soft, nontender. IMPRESSION: 1. Diabetic ketoacidosis. 2. Dehydration. 3. Continued nausea. 4. Depression. PLAN: Psych consult. MMODL / IJN: [id number] /
--- NOTE | 2020-10-30 22:34 | DS ---
DISCHARGE SUMMARY DATE OF SERVICE: 10/30/2020. CHIEF COMPLAINT: DKA. HISTORY OF PRESENT ILLNESS AND PHYSICAL EXAMINATION: Details of this man's history and physical can be found in the initial workup. LABORATORY STUDIES: While he was in the hospital, he had laboratory studies, details of which can be found in the laboratory section of his chart. COURSE IN THE HOSPITAL: After admission, he was placed on bedrest, started on intravenous fluids in ICU and placed on DKA protocol. Blood sugars came down and his anion gap closed. He remained nauseated and vomiting for the next 12 hours or so, but then he began to improve. Psychiatric consult was requested and they did not feel he is candidate for inpatient management. He was doing well, started to eat and was felt he could go home on the . He will follow up in our office. FINAL DIAGNOSES: 1. Diabetic ketoacidosis. 2. Lactic acidosis. 3. Dehydration. 4. Major depression. OPERATIONS: None. 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 He is improved. GRACE / TRAMN: [id number] /
== END 2020-10-30 15:53 | disposition home or self-care (01) | DRG 638 ==
LOC: EC 18:39 → 2SICU 20:00 → 4SSUR 10-29 15:15
PROVIDERS: ADMIT Family Medicine; ATTEND Family Medicine
DX: E10.10 Type 1 diabetes mellitus with ketoacidosis without coma (principal); F33.2 Major depressive disorder, recurrent severe without psychotic features; E86.0 Dehydration; J45.909 Unspecified asthma, uncomplicated; Z20.822 Contact with and (suspected) exposure to COVID-19; F41.1 Generalized anxiety disorder; F17.200 Nicotine dependence, unspecified, uncomplicated; Z91.19 Patient's noncompliance with other medical treatment and regimen; Z91.14 Patient's other noncompliance with medication regimen; Z79.4 Long term (current) use of insulin
CPT/HCPCS: 36415; 71045; 80048; 80051; 80053; 81003; 82009; 82565; 82947; 83036; 83735; 84100; 84520; 85025; 85027; 85610; 85730; 87635; 93005; 96374; 99291

== ENCOUNTER 2020-11-02 16:51 | Observation (INO) | payer OTHER ==
[2020-11-02] MEDS ORDERED: SODIUM CHLORIDE 0.9% 2,000 ML IV STA (17:27)
[2020-11-02] MEDS ORDERED: ONDANSETRON 4 MG/2 ML VIAL IVP STA (17:58)
--- NOTE | 2020-11-02 17:58 | ED ---
General Adult HPI - General Chief complaint: Nausea/Vomiting/Diarrhea Stated complaint: Vomiting/high blood sugar Time Seen by Provider: 11/02/20 17:05 Source: patient, EMS, RN notes reviewed Mode of arrival: EMS Limitations: no limitations - History of Present Illness Initial comments: 25-year-old male with a past medical history of IDDM type I, multiple hospitalizations for DKA, bilateral neuropathy, asthma presents to the emergency room for nausea vomiting. Patient states he has been nauseous and vomiting for the past 2 days. States his sugar has actually been around 200 and not been very high. However patient is concerned he could be becoming dehydrated with the vomiting. He was recently released from the hospital for DKA. Denies fevers. Patient has no other complaints at this time including shortness of breath, chest pain, abdominal pain, nausea or vomiting, headache, or visual changes. - Related Data Home Medications Medication Instructions Recorded Confirmed INSULIN ASPART (NovoLOG) [NovoLOG 10 unit SQ AC-TID 08/27/20 11/02/20 (formulary)] Insulin Detemir (Levemir) [Levemir] 25 unit SQ DAILY 08/27/20 11/02/20 traZODone HCL 100 - 200 mg PO HS PRN 11/02/20 11/02/20 Allergies Allergy/AdvReac Type Severity Reaction Status Date / Time No Known Allergies Allergy Verified 10/27/20 19:59 Review of Systems ROS Statement: Those systems with pertinent positive or pertinent negative responses have been documented in the HPI. ROS Other: All systems not noted in ROS Statement are negative. Past Medical History Past Medical History: Asthma, Diabetes Mellitus, Skin Disorder Additional Past Medical History / Comment(s): IDDM type I, neuropathy bilateral feet, DKA, eczema. History of multiple psychiatric hospitalizations or suicide attempts. History of Any Multi-Drug Resistant Organisms: None Reported Past Surgical History: Adenoidectomy Additional Past Surgical History / Comment(s): 2002 Past Anesthesia/Blood Transfusion Reactions: No Reported Reaction Past Psychological History: Anxiety, Depression Smoking Status: Current some day smoker, Light tobacco smoker - Past Family History Mother Family Medical History: CVA/TIA Father Family Medical History: Hyperlipidemia, Hypertension Additional Family Medical History / Comment(s): . General Exam Limitations: no limitations General appearance: alert, in no apparent distress Head exam: Present: atraumatic, normocephalic, normal inspection Eye exam: Present: normal appearance, PERRL, EOMI. Absent: scleral icterus, conjunctival injection, periorbital swelling ENT exam: Present: normal exam, mucous membranes moist Neck exam: Present: normal inspection, full ROM. Absent: tenderness, meningismus, lymphadenopathy Respiratory exam: Present: normal lung sounds bilaterally. Absent: respiratory distress, wheezes, rales, rhonchi, stridor Cardiovascular Exam: Present: regular rate, normal rhythm, normal heart sounds. Absent: systolic murmur, diastolic murmur, rubs, gallop, clicks GI/Abdominal exam: Present: soft, normal bowel sounds. Absent: distended, tenderness, guarding, rebound, rigid Neurological exam: Present: alert Course Vital Signs 11/02/20 11/02/20 11/02/20 17:02 17:04 19:12 Temperature 98.1 F Pulse Rate 109 H 90 87 Respiratory 18 18 18 Rate Blood Pressure 132/91 132/89 123/82 O2 Sat by Pulse 100 99 99 Oximetry Medical Decision Making - Medical Decision Making Vitals are stable. CBC unremarkable. CMP reveals an anion gap of 12 and a glucose of 198. Analysis however does show 4+ glucose and 4+ ketones. He also has a positive acetone. Patient was given fluids in case was discussed with patient's primary care provider who does accept the admission. - Lab Data Result diagrams: 11/02/20 18:00 11/02/20 18:00 Lab Results 11/02/20 11/02/20 11/02/20 Range/Units 18:00 18:00 18:00 WBC 11.5 H (3.8-10.6) k/uL RBC 4.79 (4.30-5.90) m/uL Hgb 15.1 (13.0-17.5) gm/dL Hct 42.5 (39.0-53.0) % MCV 88.7 (80.0-100.0) fL MCH 31.6 (25.0-35.0) pg MCHC 35.6 (31.0-37.0) g/dL RDW 12.4 (11.5-15.5) % Plt Count 319 (150-450) k/uL MPV 6.8 Neutrophils % 70 % Lymphocytes % 23 % Monocytes % 5 % Eosinophils % 2 % Basophils % 0 % Neutrophils # 8.0 H (1.3-7.7) k/uL Lymphocytes # 2.6 (1.0-4.8) k/uL Monocytes # 0.6 (0-1.0) k/uL Eosinophils # 0.2 (0-0.7) k/uL Basophils # 0.1 (0-0.2) k/uL Sodium 138 (137-145) mmol/L Potassium 3.7 (3.5-5.1) mmol/L Chloride 98 (98-107) mmol/L Carbon Dioxide 28 (22-30) mmol/L Anion Gap 12 mmol/L BUN 14 (9-20) mg/dL Creatinine 0.55 L (0.66-1.25) mg/dL Est GFR (CKD-EPI)AfAm >90 (>60 ml/min/1.73 sqM) Est GFR (CKD-EPI)NonAf >90 (>60 ml/min/1.73 sqM) Glucose 198 H (74-99) mg/dL Calcium 9.1 (8.4-10.2) mg/dL Total Bilirubin 0.6 (0.2-1.3) mg/dL AST 15 L (17-59) U/L ALT 10 (4-49) U/L Alkaline Phosphatase 74 (38-126) U/L Total Protein 6.4 (6.3-8.2) g/dL Albumin 4.2 (3.5-5.0) g/dL Urine Color Yellow Urine Appearance Clear (Clear) Urine pH 5.5 (5.0-8.0) Ur Specific [place] 1.039 H (1.001-1.035) Urine Protein Trace H (Negative) Urine Glucose (UA) 4+ H (Negative) Urine Ketones 4+ H (Negative) Urine Blood Negative (Negative) Urine Nitrite Negative (Negative) Urine Bilirubin Negative (Negative) Urine Urobilinogen <2.0 (<2.0) mg/dL Ur Leukocyte Esterase Negative (Negative) Acetone, Qual Positive (Negative) Disposition Clinical Impression: Ketonuria, Hyperglycemia Disposition: ADMITTED IP TO THIS [facility] Is patient prescribed a controlled substance at d/c from ED?: No Referrals: Brown Valenzuela MD [Primary Care Provider] - 1-2 days Time of Disposition: 19:50
[2020-11-02 18:17] LABS: Basophils # (A) 0.1 k/uL (0-0.2); Basophils % (A) 0 %; Eosinophils # (A) 0.2 k/uL (0-0.7); Eosinophils % (A) 2 %; HCT 42.5 % (39.0-53.0); HGB 15.1 gm/dL (13.0-17.5); Lymphocytes # (A) 2.6 k/uL (1.0-4.8); Lymphocytes % (A) 23 %; MCH 31.6 pg (25.0-35.0); MCHC 35.6 g/dL (31.0-37.0); MCV 88.7 fL (80.0-100.0); Mean Platelet Volume 6.8; Monocytes # (A) 0.6 k/uL (0-1.0); Monocytes % (A) 5 %; Neutrophils % (A) 70 %; Platelet Count 319 k/uL (150-450); RBC 4.79 m/uL (4.30-5.90); RDW 12.4 % (11.5-15.5); WBC 11.5 k/uL (3.8-10.6)
[2020-11-02 18:36] LABS: ALT 10 U/L (4-49); AST 15 U/L (17-59); African American GFR (CKD) >90 (>60 ml/min/1.73 sqM); Albumin 4.2 g/dL (3.5-5.0); Alkaline Phosphatase 74 U/L (38-126); Anion Gap 12 mmol/L; Blood Urea Nitrogen 14 mg/dL (9-20); Calcium 9.1 mg/dL (8.4-10.2); Carbon Dioxide 28 mmol/L (22-30); Chloride 98 mmol/L (98-107); Glucose 198 mg/dL (74-99); Non-African American GFR(CKD) >90 (>60 ml/min/1.73 sqM); Potassium 3.7 mmol/L (3.5-5.1); Sodium 138 mmol/L (137-145); Total Bilirubin 0.6 mg/dL (0.2-1.3); Total Protein 6.4 g/dL (6.3-8.2)
[2020-11-02 18:38] LABS: Appearance,Urine Clear (Clear); Bilirubin,Urine Negative (Negative); Blood,Urine Negative (Negative); Color,Urine Yellow; Glucose,Urine (UA) 4+ (Negative); Leukocyte Esterase,Urine Negative (Negative); Nitrite,Urine Negative (Negative); PH, Urine 5.5 (5.0-8.0); Protein,Urine Trace (Negative); Specific Gravity,Urine 1.039 (1.001-1.035); Urobilinogen,Urine <2.0 mg/dL (<2.0)
[2020-11-02 18:57] LABS: Ketones,Urine 4+ (Negative)
[2020-11-02] MEDS ORDERED: ONDANSETRON 4 MG/2 ML VIAL IVP PRN (19:43)
[2020-11-02] MEDS ORDERED: NALOXONE 0.4 MG/ML 1 ML VIAL IV PRN (19:43)
[2020-11-02] MEDS: SODIUM CHLORIDE 0.9% 1,000 ML IV SCH (19:54)
[2020-11-02 21:31] LABS: Glucose,Whole Blood 175 mg/dL (75-99)
[2020-11-02] MEDS ORDERED: traZODone HCL 100 MG TAB PO PRN (21:41)
[2020-11-02] MEDS: INSULIN ASPART (NovoLOG) 100 UNIT/ML VIAL SQ SCH (21:46)
[2020-11-03] MEDS: SODIUM CHLORIDE 0.9% 1,000 ML IV SCH ×2 (05:11→13:18)
[2020-11-03 07:27] LABS: Glucose,Whole Blood 180 mg/dL (75-99)
[2020-11-03] MEDS ORDERED: INSULIN DETEMIR (LEVEMIR) 100 UNIT/ML SYR SQ SCH (09:00)
[2020-11-03 11:32] LABS: Basophils % (A) 0 %; Eosinophils % (A) 1 %; HCT 41.6 % (39.0-53.0); HGB 13.8 gm/dL (13.0-17.5); Lymphocytes # (A) 1.8 k/uL (1.0-4.8); Lymphocytes % (A) 23 %; MCH 30.4 pg (25.0-35.0); MCHC 33.3 g/dL (31.0-37.0); MCV 91.3 fL (80.0-100.0); Mean Platelet Volume 6.9; Monocytes # (A) 0.3 k/uL (0-1.0); Monocytes % (A) 3 %; Neutrophils # (A) 5.6 k/uL (1.3-7.7); Neutrophils % (A) 72 %; Platelet Count 254 k/uL (150-450); RBC 4.56 m/uL (4.30-5.90); RDW 13.1 % (11.5-15.5); WBC 7.8 k/uL (3.8-10.6)
[2020-11-03 11:38] LABS: Glucose,Whole Blood 190 mg/dL (75-99)
[2020-11-03 11:43] LABS: ALT 8 U/L (4-49); AST 15 U/L (17-59); African American GFR (CKD) >90 (>60 ml/min/1.73 sqM); Albumin 3.7 g/dL (3.5-5.0); Albumin/Globulin Ratio 1.8; Alkaline Phosphatase 78 U/L (38-126); Anion Gap 15 mmol/L; Blood Urea Nitrogen 10 mg/dL (9-20); Calcium 8.6 mg/dL (8.4-10.2); Carbon Dioxide 20 mmol/L (22-30); Chloride 98 mmol/L (98-107); Globulin 2.1 g/dL; Glucose 224 mg/dL (74-99); Non-African American GFR(CKD) >90 (>60 ml/min/1.73 sqM); Potassium 4.1 mmol/L (3.5-5.1); Sodium 133 mmol/L (137-145); Total Bilirubin 0.6 mg/dL (0.2-1.3); Total Protein 5.8 g/dL (6.3-8.2)
[2020-11-03] MEDS: INSULIN ASPART (NovoLOG) 100 UNIT/ML VIAL SQ SCH ×2 (11:59→13:14)
[2020-11-03] MEDS ORDERED: METOCLOPRAMIDE 10 MG TAB PO SCH (12:30)
[2020-11-03 14:12] VITALS: BMI 18.7
[2020-11-03 15:42] VITALS: BP 122/81; PULSE 81; RESP 18; TEMP 98.2
--- NOTE | 2020-11-07 05:30 | HP ---
HISTORY AND PHYSICAL DATE OF SERVICE: 11/02/2020 CHIEF COMPLAINT: DKA. HISTORY OF PRESENT ILLNESS: This is another admission for this 25-year-old noncompliant male type 1 diabetic. He has a pattern of not taking his insulin, going into diabetic ketoacidosis and then comes to the emergency room. He was just discharged last week. He came back in with the same issues. He was having some emesis as well. REVIEW OF SYSTEMS: Otherwise unremarkable and unchanged. He has had no fever, chills, cough, shortness of breath, abdominal pain, diarrhea, etc. Past medical history, family history and personal and social histories are all otherwise unremarkable and unchanged. PHYSICAL EXAM: Pulse is 130 and blood pressure is 108/60. Respirations were 36. He is afebrile. In general, he appeared to be dehydrated, slender and a little bit lethargic. HEENT: Head, ears, eyes, nose, mouth and throat were otherwise normal. NECK veins were not distended. CHEST is clear. CARDIAC exam was normal. ABDOMEN was soft and nontender. EXTREMITIES: Normal. IMPRESSION: He is admitted to the hospital with diagnosis of recurrent diabetic ketoacidosis. PLAN: 1. Bedrest. 2. IV fluids. 3. IV insulin. MMODL / IJN: [id number] /
--- NOTE | 2020-11-07 05:38 | DS ---
DISCHARGE SUMMARY CHIEF COMPLAINT: Uncontrolled type 1 insulin-dependent diabetes mellitus and ketoacidosis. HISTORY OF PRESENT ILLNESS AND PHYSICAL EXAMINATION: Details of this man's history and physical can be found in the initial workup. LABORATORY STUDIES: While he was in the hospital, he had laboratory studies, details of which can be found in the laboratory section of his chart. COURSE IN THE HOSPITAL: After admission, he was placed on bedrest, started on intravenous fluids and IV insulin. Blood sugars were brought down. Nausea and vomiting improved and he did well and it was felt he could be discharged on November 03. He will go home on a regular activity and diet and it was recommended that he get back and stay on his usual insulin management. He will be contacted in several days. FINAL DIAGNOSES: 1. Diabetic ketoacidosis. 2. Dehydration. OPERATIONS: None. CONSULTATION: None. He is improved. GRACE / ALDEN: [id number] /
== END 2020-11-03 16:28 | disposition home or self-care (01) ==
LOC: EC 16:51 → 6NMEDSUR 19:54
PROVIDERS: ADMIT Family Medicine; ATTEND Family Medicine
DX: E10.10 Type 1 diabetes mellitus with ketoacidosis without coma (principal); T38.3X6A Underdosing of insulin and oral hypoglycemic [antidiabetic] drugs, initial encounter; Z91.19 Patient's noncompliance with other medical treatment and regimen; J45.909 Unspecified asthma, uncomplicated; G62.9 Polyneuropathy, unspecified; E86.0 Dehydration; F17.200 Nicotine dependence, unspecified, uncomplicated; F32.9 Major depressive disorder, single episode, unspecified; F41.9 Anxiety disorder, unspecified; L30.9 Dermatitis, unspecified; Z79.4 Long term (current) use of insulin; Z82.49 Family history of ischemic heart disease and other diseases of the circulatory system; Z83.42 Family history of familial hypercholesterolemia
CPT/HCPCS: 96374; 96361; 99285; 36415; 80053 ×2; 82009; 85025 ×2; 81003; G0378 ×2; J2405

== ENCOUNTER 2020-11-24 18:03 | Emergency (ER) | payer OTHER ==
[2020-11-24 18:09] VITALS: BP 110/73; PULSE 90; RESP 16; TEMP 97.5
[2020-11-24] MEDS ORDERED: DEXTROSE 50% SYRINGE 50 ML IVP STA (18:38)
[2020-11-24 18:39] LABS: Glucose,Whole Blood 48 mg/dL (75-99)
--- NOTE | 2020-11-24 20:02 | ED ---
Lower Extremity Injury HPI - General Chief Complaint: Extremity Injury, Lower Stated Complaint: Foot injury Time Seen by Provider: 11/24/20 18:10 Source: patient Mode of arrival: ambulatory Limitations: no limitations - History of Present Illness Initial Comments: 25-year-old male with history of type 1 diabetes presents to emergency Department with a chief complaint of leg injury. States this occurred yesterday when he suffered an inversion injury to the left ankle. States now has developed some swelling but denies any ecchymosis. States he he was still walking throughout the whole day without any difficulties. States he even ran on it. Denies any significant pain or any paresthesias. Denies taking medication to alleviate the pain. States the pain is minimal and occasionally sharp at this time. - Related Data Home Medications Medication Instructions Recorded Confirmed INSULIN ASPART (NovoLOG) [NovoLOG 10 unit SQ AC-TID 08/27/20 11/24/20 (formulary)] Insulin Detemir (Levemir) [Levemir] 25 unit SQ DAILY 08/27/20 11/24/20 traZODone HCL 100 - 200 mg PO HS PRN 11/02/20 11/24/20 Previous Rx's Medication Instructions Recorded Metoclopramide [Reglan] 10 mg PO AC-TID #30 tab 11/03/20 Allergies Allergy/AdvReac Type Severity Reaction Status Date / Time No Known Allergies Allergy Verified 10/27/20 19:59 Review of Systems ROS Statement: Those systems with pertinent positive or pertinent negative responses have been documented in the HPI. ROS Other: All systems not noted in ROS Statement are negative. Past Medical History Past Medical History: Asthma, Diabetes Mellitus, Skin Disorder Additional Past Medical History / Comment(s): IDDM type I, neuropathy bilateral feet, DKA, eczema. History of multiple psychiatric hospitalizations or suicide attempts. History of Any Multi-Drug Resistant Organisms: None Reported Past Surgical History: Adenoidectomy Additional Past Surgical History / Comment(s): 2002 Past Anesthesia/Blood Transfusion Reactions: No Reported Reaction Past Psychological History: Anxiety, Depression Smoking Status: Current every day smoker, Light tobacco smoker Past Alcohol Use History: None Reported Past Drug Use History: None Reported - Past Family History Mother Family Medical History: CVA/TIA Father Family Medical History: Hyperlipidemia, Hypertension Additional Family Medical History / Comment(s): . General Exam Limitations: no limitations General appearance: alert, in no apparent distress Head exam: Present: atraumatic, normocephalic, normal inspection Eye exam: Present: normal appearance, PERRL, EOMI Pupils: Present: normal accommodation ENT exam: Present: normal exam, normal oropharynx, mucous membranes moist Neck exam: Present: normal inspection, full ROM. Absent: tenderness, lymphadenopathy Respiratory exam: Present: normal lung sounds bilaterally. Absent: respiratory distress, wheezes Cardiovascular Exam: Present: regular rate, normal rhythm, normal heart sounds. Absent: systolic murmur Extremities exam: Present: normal inspection (My left ankle swelling, particularly at the malleoli.), full ROM, tenderness (Mild bilateral malleoli tenderness. No midfoot or fifth metatarsal tenderness.), normal capillary refill, other (Palpable DP and PT bilaterally). Absent: pedal edema, joint swelling, calf tenderness Back exam: Present: normal inspection, full ROM. Absent: tenderness, CVA tenderness (R), CVA tenderness (L) Neurological exam: Present: alert, oriented X3 Psychiatric exam: Present: normal affect, normal mood Skin exam: Present: warm, dry, intact, normal color Course Vital Signs 11/24/20 18:06 Temperature 97.5 F L Pulse Rate 90 Respiratory 16 Rate Blood Pressure 110/73 O2 Sat by Pulse 100 Oximetry Procedures - Orthopedic Splinting/Casting Injury #1 Side: left Lower Extremity Injury Location: ankle Lower Extremity Immobilizer: posterior splint, stirrup splint, Khurram wrap, synthetic pre-padded splint Other Orthopedic Equipment: crutches Medical Decision Making - Medical Decision Making 25-year-old male history type 1 diabetes presented emergency Department with a chief complaint of left ankle injury. Physical examination, he does have some swelling to the region with full range of motion. He is otherwise neurovascularly intact. Initial Accu-Chek showed hypoglycemia. He was given food and offered D50, he declined. Recheck showed improvement in his blood glucose levels. X-ray of the left ankle revealed irregularity at the lateral patellar process suggestive of an avulsion fracture at the distal ATFL insertion. Additional 6 mg avulsion fracture of the lateral calcaneus. Soft tissue swelling noted. Patient was offered analgesia initially, he declined. A posterior splint with ankle stirrups was applied. I gave him crutches. Advised him to follow-up with the security management specialist. Strict return parameters were thoroughly discussed the patient is understanding ago. Case discussed with Dr. Jonas. - Lab Data Lab Results 11/24/20 Range/Units 18:37 POC Glucose (mg/dL) 48 L (75-99) mg/dL POC Glu Route Sales Associate ID Tristin Centeno Disposition Clinical Impression: Avulsion fracture of ankle Disposition: HOME SELF-CARE Condition: Stable Instructions (If sedation given, give patient instructions): Ankle Fracture (DC) Additional Instructions: Please return to the Emergency Department if symptoms worsen or any other concerns. Is patient prescribed a controlled substance at d/c from ED?: No Referrals: Brown Valenzuela MD [Primary Care Provider] - 1-2 days Idalia Hercules DO [Doctor of Osteopathic Medicine] - 1-2 days Time of Disposition: 21:15
--- NOTE | 2020-11-24 20:52 | XR ---
EXAMINATION TYPE: XR ankle complete LT DATE OF EXAM: 11/24/2020 COMPARISON: NONE HISTORY: 24-year-old male inversion injury, pain after tripping yesterday. TECHNIQUE: 3 views FINDINGS: Lateral and anterior soft tissue swelling. Ankle mortise is congruent with preservation of the distal tibiofibular overlap. Talar dome is intact. Subtle bony irregularity along the lateral talar process and also a 6 mm avulsion fracture fragment l ateral calcaneus on the AP view. IMPRESSION: 1. Irregularity at the lateral talar process suggestive of avulsion fracture at the distal ATFL inser tion. 2. Additional 6 mm avulsion fracture lateral calcaneus (seen on the AP view), likely corresponding to the origin of the extensor digitorum brevis. 3. Lateral and anterior soft tissue swelling.
== END 2020-11-24 21:33 | disposition home or self-care (01) ==
LOC: EC 18:03
DX: S82.892A Other fracture of left lower leg, initial encounter for closed fracture (principal); E10.40 Type 1 diabetes mellitus with diabetic neuropathy, unspecified; J45.909 Unspecified asthma, uncomplicated; F41.9 Anxiety disorder, unspecified; F32.9 Major depressive disorder, single episode, unspecified; F17.200 Nicotine dependence, unspecified, uncomplicated; Z79.899 Other long term (current) drug therapy; Z82.49 Family history of ischemic heart disease and other diseases of the circulatory system; Z83.49 Family history of other endocrine, nutritional and metabolic diseases; X50.1XXA Overexertion from prolonged static or awkward postures, initial encounter
CPT/HCPCS: 29505; 36415; 99283

== ENCOUNTER 2020-11-27 13:32 | Emergency (ER) | payer OTHER ==
[2020-11-27 13:44] VITALS: BP 110/63; PULSE 112; RESP 18; TEMP 98
--- NOTE | 2020-11-27 14:03 | ED ---
General Adult HPI - General Chief complaint: Extremity Injury, Lower Stated complaint: L Foot Injury Time Seen by Provider: 11/27/20 13:57 Source: patient Mode of arrival: ambulatory Limitations: no limitations - History of Present Illness Initial comments: Dictation was produced using [employer] dictation software. please excuse any grammatical, word or spelling errors. Chief Complaint: 25-year-old male presents for splint reapplication History of Present Illness: 25-year-old male he suffered severe inversion injury 3 days ago. Patient states that yesterday he took off his splint and was walking on it. He understands that he was supposed to take his splint off. He hasn't followed up with orthopedic surgery. He has been using his crutches otherwise. The ROS documented in this emergency department record has been reviewed and confirmed by me. Those systems with pertinent positive or negative responses have been documented in the HPI. All other systems are other negative and/or noncontributory. PHYSICAL EXAM: General Impression: Alert and oriented x3, not in acute distress HEENT: Normocephalic atraumatic, extra-ocular movements intact, pupils equal and reactive to light bilaterally, mucous membranes moist. Cardiovascular: Heart regular rate and rhythm Chest: Able to complete full sentences, no retractions, no tachypnea Abdomen: abdomen soft, non-tender, non-distended, no organomegaly Musculoskeletal: Pulses present and equal in all extremities, no peripheral edema Left ankle: Severe bruising around the lateral ankle extending to the heel and toes Motor: no focal deficits noted Neurological: CN II-XII grossly intact, no focal motor or sensory deficits noted Skin: Intact with no visualized rashes Psych: Normal affect and mood ED course 25:-year-old male presents with request for splint reapplication. Vital signs upon arrival are within acceptable limits. X-ray from 3 days ago was reviewed showing irregularity at the lateral talar processes suggestive of all vision fracture at the distal ATFL insertion. This also likely a calcaneal lateral fracture. Splint reapplied. Patient discharged. Patient told to follow up with orthopedic surgery. - Related Data Home Medications Medication Instructions Recorded Confirmed INSULIN ASPART (NovoLOG) [NovoLOG 10 unit SQ AC-TID 08/27/20 11/24/20 (formulary)] Insulin Detemir (Levemir) [Levemir] 25 unit SQ DAILY 08/27/20 11/24/20 traZODone HCL 100 - 200 mg PO HS PRN 11/02/20 11/24/20 Previous Rx's Medication Instructions Recorded Metoclopramide [Reglan] 10 mg PO AC-TID #30 tab 11/03/20 Allergies Allergy/AdvReac Type Severity Reaction Status Date / Time No Known Allergies Allergy Verified 11/27/20 13:44 Review of Systems ROS Statement: Those systems with pertinent positive or pertinent negative responses have been documented in the HPI. ROS Other: All systems not noted in ROS Statement are negative. Past Medical History Past Medical History: Asthma, Diabetes Mellitus, Skin Disorder Additional Past Medical History / Comment(s): IDDM type I, neuropathy bilateral feet, DKA, eczema. History of multiple psychiatric hospitalizations or suicide attempts. History of Any Multi-Drug Resistant Organisms: None Reported Past Surgical History: Adenoidectomy Additional Past Surgical History / Comment(s): 2002 Past Anesthesia/Blood Transfusion Reactions: No Reported Reaction Past Psychological History: Anxiety, Depression Smoking Status: Current every day smoker, Light tobacco smoker Past Alcohol Use History: None Reported Past Drug Use History: None Reported - Past Family History Mother Family Medical History: CVA/TIA Father Family Medical History: Hyperlipidemia, Hypertension Additional Family Medical History / Comment(s): . General Exam Limitations: no limitations Course Vital Signs 11/27/20 13:39 Temperature 98.0 F Pulse Rate 112 H Respiratory 18 Rate Blood Pressure 110/63 O2 Sat by Pulse 98 Oximetry Procedures - Orthopedic Splinting/Casting Injury #1 Side: left Lower Extremity Injury Location: ankle Lower Extremity Immobilizer: posterior splint Other Orthopedic Equipment: crutches Disposition Clinical Impression: Ankle fracture Disposition: HOME SELF-CARE Condition: Good Instructions (If sedation given, give patient instructions): Ankle Fracture (ED) Is patient prescribed a controlled substance at d/c from ED?: No Referrals: Brown Valenzuela MD [Primary Care Provider] - 1-2 days
== END 2020-11-27 14:34 | disposition home or self-care (01) ==
LOC: EC 13:32
DX: S82.892A Other fracture of left lower leg, initial encounter for closed fracture (principal); E11.9 Type 2 diabetes mellitus without complications; J45.909 Unspecified asthma, uncomplicated; F41.9 Anxiety disorder, unspecified; F32.9 Major depressive disorder, single episode, unspecified; F17.200 Nicotine dependence, unspecified, uncomplicated; Z79.4 Long term (current) use of insulin; Z79.899 Other long term (current) drug therapy; Z82.49 Family history of ischemic heart disease and other diseases of the circulatory system; Z83.49 Family history of other endocrine, nutritional and metabolic diseases; X50.1XXA Overexertion from prolonged static or awkward postures, initial encounter
CPT/HCPCS: 29515; 99283

== ENCOUNTER 2020-12-07 11:24 | Emergency (ER) | payer OTHER ==
[2020-12-07 11:56] VITALS: BP 105/65; PULSE 110; RESP 20; TEMP 97.8
[2020-12-07] MEDS ORDERED: HYDROcodone/APAP 5-325MG 1 EACH TAB PO STA (12:22)
--- NOTE | 2020-12-07 12:22 | ED ---
Lower Extremity Injury HPI - General Chief Complaint: Extremity Injury, Lower Stated Complaint: Revisit L Foot Pain Source: patient, RN notes reviewed, old records reviewed Mode of arrival: wheelchair Limitations: no limitations - History of Present Illness Initial Comments: 25-year-old white male, alert and oriented 4, presents to the emergency room with complaints of increasing left foot pain. Patient states he was here on November 24 diagnosed with a fracture but is unsure what type of fracture was. Patient states that he called orthopedics and they told him he is unable to get in until next Friday. Patient states he is unable to bear any weight and he can't get comfortable related to the pain. He states that he has removed the splint and redressed it himself. He now has an abrasion to the top of his foot from the wrapping. States has been using crutches. Complaint: foot injury -: week(s) (2) Injury: Foot: Left Type of Injury: other (Diagnosis of the fracture on November 24 has not followed up, increased pain.) Severity scale (1-10): 8 Improves With: nothing Worsens With: weight bearing, palpation Context: fall Other Symptoms: loss of consciousness Treatments Prior to Arrival: splint - Related Data Home Medications Medication Instructions Recorded Confirmed INSULIN ASPART (NovoLOG) [NovoLOG 10 unit SQ AC-TID 08/27/20 11/24/20 (formulary)] Insulin Detemir (Levemir) [Levemir] 25 unit SQ DAILY 08/27/20 11/24/20 traZODone HCL 100 - 200 mg PO HS PRN 11/02/20 11/24/20 Previous Rx's Medication Instructions Recorded Metoclopramide [Reglan] 10 mg PO AC-TID #30 tab 11/03/20 HYDROcodone/APAP 5-325MG [[place] 1 tab PO Q6HR PRN 3 Days #12 tab 12/07/20 5-325] Allergies Allergy/AdvReac Type Severity Reaction Status Date / Time No Known Allergies Allergy Verified 12/07/20 11:56 Review of Systems ROS Statement: Those systems with pertinent positive or pertinent negative responses have been documented in the HPI. ROS Other: All systems not noted in ROS Statement are negative. Past Medical History Past Medical History: Asthma, Diabetes Mellitus, Skin Disorder Additional Past Medical History / Comment(s): IDDM type I, neuropathy bilateral feet, DKA, eczema. History of multiple psychiatric hospitalizations or suicide attempts. History of Any Multi-Drug Resistant Organisms: None Reported Past Surgical History: Adenoidectomy Additional Past Surgical History / Comment(s): 2002 Past Anesthesia/Blood Transfusion Reactions: No Reported Reaction Past Psychological History: Anxiety, Depression Smoking Status: Current every day smoker, Light tobacco smoker Past Alcohol Use History: None Reported Past Drug Use History: Marijuana - Past Family History Mother Family Medical History: CVA/TIA Father Family Medical History: Hyperlipidemia, Hypertension Additional Family Medical History / Comment(s): . General Exam Limitations: no limitations General appearance: alert, in no apparent distress Head exam: Present: atraumatic, normocephalic, normal inspection Eye exam: Present: normal appearance, PERRL, EOMI. Absent: scleral icterus, conjunctival injection, periorbital swelling ENT exam: Present: normal exam, normal oropharynx, mucous membranes moist Neck exam: Present: normal inspection, full ROM. Absent: tenderness, meningismus, lymphadenopathy, thyromegaly Respiratory exam: Present: normal lung sounds bilaterally. Absent: respiratory distress, wheezes, rales, rhonchi, stridor, chest wall tenderness, accessory muscle use, decreased breath sounds, prolonged expiratory Cardiovascular Exam: Present: normal rhythm, tachycardia, normal heart sounds. Absent: systolic murmur, diastolic murmur, rubs, gallop, clicks GI/Abdominal exam: Present: soft, normal bowel sounds. Absent: distended, tend erness, guarding, rebound, rigid Extremities exam: Present: normal inspection, full ROM, tenderness, normal capillary refill. Absent: pedal edema, joint swelling, calf tenderness Left Foot/Toe exam: Present: tenderness (Calcaneus and left lateral 5th metatarsal), swelling, abrasion, ecchymosis, calcaneal tenderness, tenderness at base of 5th metatarsal. Absent: normal inspection, full ROM, laceration, dislocation Neurovascular tendon exam: Present: no vascular compromise. Absent: abnormal cap refill, extremity cold to touch, pallor, foot drop Back exam: Present: normal inspection, full ROM. Absent: tenderness, CVA tenderness (R), CVA tenderness (L), muscle spasm, paraspinal tenderness, vertebral tenderness, rash noted Neurological exam: Present: alert, oriented X3, CN II-XII intact Psychiatric exam: Present: normal affect, normal mood Skin exam: Present: warm, dry, intact, normal color. Absent: rash Course Vital Signs 12/07/20 11:50 Temperature 97.8 F Pulse Rate 110 H Respiratory 20 Rate Blood Pressure 105/65 O2 Sat by Pulse 100 Oximetry Medical Decision Making - Medical Decision Making X-ray of the left foot shows no acute fracture hallux valgus of the first digit but no significant soft tissue swelling. X-ray completed on 11/24 showed an avulsion fracture at the distal ATFL insertion with a 6 mm avulsion fracture of the lateral calcaneus. Patient will be directed to keep his scheduled appointment with orthopedics on Friday, continue with the splint and use crutches. Rest ice and elevate and take [place] as prescribed. Case discussed with Dr. Gregorio Disposition Clinical Impression: Foot pain, left Disposition: HOME SELF-CARE Condition: Fair Instructions (If sedation given, give patient instructions): Foot Contusion (ED), Foot Sprain (ED) Additional Instructions: Rest, ice, elevate only use crutches and splint. Follow-up with orthopedics. Motrin and/or Tylenol for pain. Prescriptions: HYDROcodone/APAP 5-325MG [[place] 5-325] 1 tab PO Q6HR PRN 3 Days #12 tab PRN Reason: Pain Is patient prescribed a controlled substance at d/c from ED?: Yes Referrals: None,Stated [Primary Care Provider] - 1-2 days Fabio Enriquez MD [STAFF PHYSICIAN] - 1-2 days Time of Disposition: 14:14
--- NOTE | 2020-12-07 13:26 | XR ---
EXAMINATION TYPE: XR foot complete LT DATE OF EXAM: 12/07/2020 COMPARISON: 06/24/2012 HISTORY: . Pain. TECHNIQUE: AP, oblique, and lateral views of the left foot are obtained. FINDINGS: No acute fracture. No dislocation. Hallux valgus of the first digit. Normal mineralization. No significant soft tissue swelling. IMPRESSION: No acute fracture or dislocation.
== END 2020-12-07 14:47 | disposition home or self-care (01) ==
LOC: EC 11:24
DX: M79.672 Pain in left foot (principal); J45.909 Unspecified asthma, uncomplicated; E11.9 Type 2 diabetes mellitus without complications; F32.9 Major depressive disorder, single episode, unspecified; F17.200 Nicotine dependence, unspecified, uncomplicated; F12.90 Cannabis use, unspecified, uncomplicated
CPT/HCPCS: 99283

== ENCOUNTER 2020-12-13 21:55 | Emergency (ER) | payer OTHER ==
[2020-12-13 21:59] VITALS: BP 99/68; PULSE 112; RESP 17; TEMP 98.6
[2020-12-13] MEDS ORDERED: IBUPROFEN 600 MG TAB PO STA (22:08)
--- NOTE | 2020-12-13 22:16 | ED ---
General Adult HPI - General Chief complaint: Extremity Problem,Nontraumatic Stated complaint: RT hand/LT foot injury Time Seen by Provider: 12/13/20 22:00 Source: patient Mode of arrival: ambulatory Limitations: no limitations - History of Present Illness Initial comments: 25-year-old male presents to the emergency room for a gentleman of right hand pain. Patient states that he punched a piece of wood last week. States his hand has been sensitive since that time. Last night he jumped a fence with his right hand and it felt painful again. Patient states he is here for this to be evaluated. Patient denies any loss of sensation or difficulty moving the hand.Patient has no other complaints at this time including shortness of breath, chest pain, abdominal pain, nausea or vomiting, headache, or visual changes. - Related Data Home Medications Medication Instructions Recorded Confirmed INSULIN ASPART (NovoLOG) [NovoLOG 10 unit SQ AC-TID 08/27/20 12/13/20 (formulary)] Insulin Detemir (Levemir) [Levemir] 25 unit SQ DAILY 08/27/20 12/13/20 traZODone HCL 100 - 200 mg PO HS PRN 11/02/20 12/13/20 Previous Rx's Medication Instructions Recorded Metoclopramide [Reglan] 10 mg PO AC-TID #30 tab 11/03/20 HYDROcodone/APAP 5-325MG [[place] 1 tab PO Q6HR PRN 3 Days #12 tab 12/07/20 5-325] Allergies Allergy/AdvReac Type Severity Reaction Status Date / Time No Known Allergies Allergy Verified 12/13/20 21:59 Review of Systems ROS Statement: Those systems with pertinent positive or pertinent negative responses have been documented in the HPI. ROS Other: All systems not noted in ROS Statement are negative. Past Medical History Past Medical History: Asthma, Diabetes Mellitus, Skin Disorder Additional Past Medical History / Comment(s): IDDM type I, neuropathy bilateral feet, DKA, eczema. History of multiple psychiatric hospitalizations or suicide attempts. History of Any Multi-Drug Resistant Organisms: None Reported Past Surgical History: Adenoidectomy Additional Past Surgical History / Comment(s): 2002 Past Anesthesia/Blood Transfusion Reactions: No Reported Reaction Past Psychological History: Anxiety, Depression Smoking Status: Current every day smoker, Light tobacco smoker Past Alcohol Use History: None Reported Past Drug Use History: Marijuana - Past Family History Mother Family Medical History: CVA/TIA Father Family Medical History: Hyperlipidemia, Hypertension Additional Family Medical History / Comment(s): . General Exam Limitations: no limitations General appearance: alert, in no apparent distress Head exam: Present: atraumatic, normocephalic, normal inspection Eye exam: Present: normal appearance ENT exam: Present: normal exam, mucous membranes moist Neck exam: Present: normal inspection. Absent: tenderness, meningismus, lymphadenopathy Respiratory exam: Present: normal lung sounds bilaterally. Absent: respiratory distress, wheezes, rales, rhonchi, stridor Cardiovascular Exam: Present: regular rate, normal rhythm, normal heart sounds. Absent: systolic murmur, diastolic murmur, rubs, gallop, clicks Extremities exam: Present: full ROM (Full range of motion of the right upper extremity including the right hand and all digits of the right hand.), tenderness (Tenderness of the dorsal second metacarpal head. No edema or erythema.), normal capillary refill (Capillary refill less than 2 seconds in the right hand. Radial pulse 2+.), other (Sensation intact right upper extremity). Absent: joint swelling Course Vital Signs 12/13/20 21:57 Temperature 98.6 F Pulse Rate 112 H Respiratory 17 Rate Blood Pressure 99/68 O2 Sat by Pulse 99 Oximetry Procedures - Orthopedic Splinting/Casting Injury #1 Side: right Upper Extremity Injury Location: short arm Upper Extremity Immobilizer: volar splint Additional Comments: Neurovascular status intact after splint applied Medical Decision Making - Medical Decision Making X-ray of the right hand shows an acute nondisplaced second metacarpal fracture. Patient was placed in a volar wrist splint. He will need to see orthopedics. Referral given. He will follow up with primary care as well. He will return here for any worsening symptoms. Disposition Clinical Impression: Metacarpal bone fracture Disposition: HOME SELF-CARE Condition: Good Instructions (If sedation given, give patient instructions): Hand Fracture (ED) Additional Instructions: Please take Motrin and Tylenol for pain. Keep splint in place. Follow-up with orthopedics. Return to the emergency room for any worsening symptoms Is patient prescribed a controlled substance at d/c from ED?: No Referrals: Idalia Hercules DO [Doctor of Osteopathic Medicine] - 1-2 days Time of Disposition: 22:36
--- NOTE | 2020-12-13 22:34 | XR ---
EXAMINATION TYPE: XR hand complete RT DATE OF EXAM: 12/13/2020 COMPARISON: 06/09/2020 HISTORY: Second metacarpal pain TECHNIQUE: 3 views FINDINGS: There is hairline oblique fracture of the mid shaft of the second metacarpal. Joint spaces are fairly normal. There are no erosions. There are no pathologic calcifications. IMPRESSION: Acute nondisplaced second metacarpal fracture.
== END 2020-12-13 22:42 | disposition home or self-care (01) ==
LOC: EC 21:55
DX: S62.320A Displaced fracture of shaft of second metacarpal bone, right hand, initial encounter for closed fracture (principal); J45.909 Unspecified asthma, uncomplicated; Z79.4 Long term (current) use of insulin; F17.200 Nicotine dependence, unspecified, uncomplicated; E10.40 Type 1 diabetes mellitus with diabetic neuropathy, unspecified; F32.9 Major depressive disorder, single episode, unspecified; W27.8XXA Contact with other nonpowered hand tool, initial encounter
CPT/HCPCS: 29125; 99283

== ENCOUNTER 2020-12-16 23:42 | Emergency (ER) | payer OTHER ==
[2020-12-16 23:47] VITALS: BP 112/73; PULSE 93; RESP 19; TEMP 98.7
[2020-12-17] MEDS ORDERED: BACITRACIN OINT 1 EACH PACKET TOPICAL ONE (00:08)
--- NOTE | 2020-12-17 00:20 | ED ---
Lower Extremity Injury HPI - General Chief Complaint: Extremity Injury, Lower Stated Complaint: Left foot injury Time Seen by Provider: 12/16/20 23:48 Source: patient Mode of arrival: ambulatory - History of Present Illness Initial Comments: 25-year-old male presents emergency Department with a chief complaint of injury to left foot. Patient reports several days ago he injured his foot which caused him to have an abrasion. States now he isn't concerned that is possibly infected. Patient states he is diabetic and he has poor healing. He denies any discharge from her region but does report some erythema. Denies any fevers or chills. Denies limited range of motion paresthesias to the foot but it is tender to the touch. - Related Data Home Medications Medication Instructions Recorded Confirmed INSULIN ASPART (NovoLOG) [NovoLOG 10 unit SQ AC-TID 08/27/20 12/13/20 (formulary)] Insulin Detemir (Levemir) [Levemir] 25 unit SQ DAILY 08/27/20 12/13/20 traZODone HCL 100 - 200 mg PO HS PRN 11/02/20 12/13/20 Previous Rx's Medication Instructions Recorded Metoclopramide [Reglan] 10 mg PO AC-TID #30 tab 11/03/20 HYDROcodone/APAP 5-325MG [[place] 1 tab PO Q6HR PRN 3 Days #12 tab 12/07/20 5-325] Allergies Allergy/AdvReac Type Severity Reaction Status Date / Time No Known Allergies Allergy Verified 12/16/20 23:47 Review of Systems ROS Statement: Those systems with pertinent positive or pertinent negative responses have been documented in the HPI. ROS Other: All systems not noted in ROS Statement are negative. Past Medical History Past Medical History: Asthma, Diabetes Mellitus, Skin Disorder Additional Past Medical History / Comment(s): IDDM type I, neuropathy bilateral feet, DKA, eczema. History of multiple psychiatric hospitalizations or suicide attempts. History of Any Multi-Drug Resistant Organisms: None Reported Past Surgical History: Adenoidectomy Additional Past Surgical History / Comment(s): 2002 Past Anesthesia/Blood Transfusion Reactions: No Reported Reaction Past Psychological History: Anxiety, Depression Smoking Status: Current every day smoker, Light tobacco smoker Past Alcohol Use History: None Reported Past Drug Use History: Marijuana - Past Family History Mother Family Medical History: CVA/TIA Father Family Medical History: Hyperlipidemia, Hypertension Additional Family Medical History / Comment(s): . General Exam Limitations: no limitations General appearance: alert, in no apparent distress Head exam: Present: atraumatic, normocephalic, normal inspection Eye exam: Present: normal appearance, PERRL, EOMI Pupils: Present: normal accommodation ENT exam: Present: normal exam, normal oropharynx, mucous membranes moist Neck exam: Present: normal inspection, full ROM. Absent: tenderness Respiratory exam: Present: normal lung sounds bilaterally. Absent: respiratory distress Cardiovascular Exam: Present: regular rate, normal rhythm, normal heart sounds. Absent: systolic murmur Extremities exam: Present: full ROM, normal capillary refill. Absent: normal inspection (Patient has a healing abrasion dorsal aspect of her left foot. Does not appear to be significantly infected) Back exam: Present: normal inspection, full ROM. Absent: tenderness Neurological exam: Present: alert, oriented X3 Psychiatric exam: Present: normal affect, normal mood Skin exam: Present: warm, dry, intact, normal color Course Vital Signs 12/16/20 23:43 Temperature 98.7 F Pulse Rate 93 Respiratory 19 Rate Blood Pressure 112/73 O2 Sat by Pulse 98 Oximetry Medical Decision Making - Medical Decision Making 45-year-old male presents to emergency department with a chief complaint of an injury to the foot. On physical examination, healing skin abrasion to the dorsum of the left foot. Patient states he is not healed well due to his diabetes that is poorly controlled. I will start him on Keflex. Return parameters were discussed with patient was understanding agreeable. Case discussed with physician. Disposition Clinical Impression: Abrasion Disposition: HOME SELF-CARE Condition: Stable Instructions (If sedation given, give patient instructions): Abrasion (ED) Additional Instructions: Please return to the Emergency Department if symptoms worsen or any other concerns. Is patient prescribed a controlled substance at d/c from ED?: No Referrals: None,Stated [Primary Care Provider] - 1-2 days Time of Disposition: 00:20
== END 2020-12-17 00:32 | disposition home or self-care (01) ==
LOC: EC 23:42
DX: S90.812A Abrasion, left foot, initial encounter (principal); E10.40 Type 1 diabetes mellitus with diabetic neuropathy, unspecified; E10.10 Type 1 diabetes mellitus with ketoacidosis without coma; J45.909 Unspecified asthma, uncomplicated; F17.200 Nicotine dependence, unspecified, uncomplicated; F12.90 Cannabis use, unspecified, uncomplicated; Z79.891 Long term (current) use of opiate analgesic; Z79.899 Other long term (current) drug therapy; Z82.49 Family history of ischemic heart disease and other diseases of the circulatory system; Z83.49 Family history of other endocrine, nutritional and metabolic diseases; W19.XXXA Unspecified fall, initial encounter
CPT/HCPCS: 99283

== ENCOUNTER 2020-12-19 04:59 | Emergency (ER) | payer OTHER ==
[2020-12-19 05:05] VITALS: TEMP 98.1
--- NOTE | 2020-12-19 05:19 | ED ---
Upper Extremity HPI - General Chief Complaint: Extremity Injury, Upper Stated Complaint: R hand injury Time Seen by Provider: 12/19/20 05:01 Source: patient, RN notes reviewed, old records reviewed Mode of arrival: ambulatory Limitations: no limitations - History of Present Illness Initial Comments: This is a 25-year-old male who presents on his own for evaluation regarding hand pain. Patient punched a tree tonight. Patient has recent history of head fracture with other foot fracture all secondary to-year-old first. Patient's well-known to our hospital for some psychiatric illness but denies homicidal or suicidal thoughts today, patient denying drug abuse today. MD Complaint: Injury to:: right, hand -: hour(s) Other Extremity Injury: Hand: Right Other Injuries: none Handedness: right Place: home Severity scale (1-10): 9 Improves With: none Worsens With: none Context: direct blow Associated Symptoms: denies other symptoms - Related Data Home Medications Medication Instructions Recorded Confirmed INSULIN ASPART (NovoLOG) [NovoLOG 10 unit SQ AC-TID 08/27/20 12/13/20 (formulary)] Insulin Detemir (Levemir) [Levemir] 25 unit SQ DAILY 08/27/20 12/13/20 traZODone HCL 100 - 200 mg PO HS PRN 11/02/20 12/13/20 Previous Rx's Medication Instructions Recorded Metoclopramide [Reglan] 10 mg PO AC-TID #30 tab 11/03/20 HYDROcodone/APAP 5-325MG [[place] 1 tab PO Q6HR PRN 3 Days #12 tab 12/07/20 5-325] Allergies Allergy/AdvReac Type Severity Reaction Status Date / Time No Known Allergies Allergy Verified 12/19/20 05:05 Review of Systems ROS Statement: Those systems with pertinent positive or pertinent negative responses have been documented in the HPI. ROS Other: All systems not noted in ROS Statement are negative. Past Medical History Past Medical History: Asthma, Diabetes Mellitus, Skin Disorder Additional Past Medical History / Comment(s): IDDM type I, neuropathy bilateral feet, DKA, eczema. History of multiple psychiatric hospitalizations or suicide attempts. History of Any Multi-Drug Resistant Organisms: None Reported Past Surgical History: Adenoidectomy Additional Past Surgical History / Comment(s): 2002 Past Anesthesia/Blood Transfusion Reactions: No Reported Reaction Past Psychological History: Anxiety, Depression Smoking Status: Current every day smoker, Light tobacco smoker Past Alcohol Use History: None Reported Past Drug Use History: Marijuana - Past Family History Mother Family Medical History: CVA/TIA Father Family Medical History: Hyperlipidemia, Hypertension Additional Family Medical History / Comment(s): . General Exam - General Exam Comments Initial Comments: Right hand tenderness and swelling General appearance: alert, in no apparent distress Head exam: Present: atraumatic, normocephalic, normal inspection Eye exam: Present: normal appearance, PERRL, EOMI. Absent: scleral icterus, conjunctival injection, periorbital swelling ENT exam: Present: normal exam, mucous membranes moist Neck exam: Present: normal inspection. Absent: tenderness, meningismus, lymphadenopathy Respiratory exam: Present: normal lung sounds bilaterally. Absent: respiratory distress, wheezes, rales, rhonchi, stridor Cardiovascular Exam: Present: regular rate, normal rhythm, normal heart sounds. Absent: systolic murmur, diastolic murmur, rubs, gallop, clicks GI/Abdominal exam: Present: soft, normal bowel sounds. Absent: distended, tenderness, guarding, rebound, rigid Extremities exam: Present: normal inspection, full ROM, normal capillary refill. Absent: tenderness, pedal edema, joint swelling, calf tenderness Back exam: Present: normal inspection Neurological exam: Present: alert, oriented X3, CN II-XII intact Psychiatric exam: Present: normal affect, normal mood Skin exam: Present: warm, dry, intact, normal color. Absent: rash Course Vital Signs 12/19/20 12/19/20 05:03 06:22 Temperature 98.1 F Pulse Rate 96 69 Respiratory 18 15 Rate Blood Pressure 129/87 121/69 O2 Sat by Pulse 99 99 Oximetry - Reevaluation(s) Reevaluation #1: 12/19/20 07:01 Medical records reviewed Reevaluation #2: 12/19/20 07:02 Patient not requiring pain control Reevaluation #3: 12/19/20 07:02 Patient informed results and questions answered Procedures - Orthopedic Splinting/Casting Injury #1 Side: right Upper Extremity Injury Location: hand Upper Extremity Immobilizer: ulnar gutter Medical Decision Making - Medical Decision Making 25 male the ER with right hand pain boxer's fracture with recurrent second metatarsal fracture. Patient put in splint and can be discharged home - Radiology Data Radiology results: report reviewed (X-ray right hand positive for boxer's fracture and old second metatarsal fracture), image reviewed Disposition Clinical Impression: Abrasion, Right hand pain, Fracture of second metacarpal bone of right hand, Boxers fracture Disposition: HOME SELF-CARE Condition: Fair Instructions (If sedation given, give patient instructions): Hand Fracture (ED), Boxer Fracture (ED) Is patient prescribed a controlled substance at d/c from ED?: No Referrals: Simon Montano DO [Doctor of Osteopathic Medicine] - 1-2 days
--- NOTE | 2020-12-19 05:39 | XR ---
EXAMINATION TYPE: XR hand complete RT DATE OF EXAM: 12/19/2020 COMPARISON: NONE HISTORY: Pain TECHNIQUE: 3 views FINDINGS: There is nondisplaced hairline fracture of the mid shaft of the second metacarpal. There is slightly impacted transverse fracture through the neck of the fifth metacarpal head. The fingers lolita ear intact. The carpal bones are intact. Stomach is intact. IMPRESSION: Fractures of the second and fifth metacarpals as above.
[2020-12-19 06:23] VITALS: BP 121/69; PULSE 69; RESP 15
== END 2020-12-19 06:23 | disposition home or self-care (01) ==
LOC: EC 04:59
DX: S62.300A Unspecified fracture of second metacarpal bone, right hand, initial encounter for closed fracture (principal); E10.40 Type 1 diabetes mellitus with diabetic neuropathy, unspecified; J45.909 Unspecified asthma, uncomplicated; F32.9 Major depressive disorder, single episode, unspecified; F41.9 Anxiety disorder, unspecified; F17.200 Nicotine dependence, unspecified, uncomplicated; F12.90 Cannabis use, unspecified, uncomplicated; Z79.891 Long term (current) use of opiate analgesic; Z79.899 Other long term (current) drug therapy; Z82.49 Family history of ischemic heart disease and other diseases of the circulatory system; Z83.49 Family history of other endocrine, nutritional and metabolic diseases; W22.8XXA Striking against or struck by other objects, initial encounter; Y92.009 Unspecified place in unspecified non-institutional (private) residence as the place of occurrence of the external cause
CPT/HCPCS: 29125; 99283

== ENCOUNTER 2020-12-19 10:19 | Observation (INO) | payer OTHER ==
[2020-12-19 10:28] LABS: Glucose,Whole Blood 205 mg/dL (75-99)
[2020-12-19] MEDS ORDERED: SODIUM CHLORIDE 0.9% 1,000 ML IV STA (10:29)
--- NOTE | 2020-12-19 10:40 | ED ---
General Adult HPI - General Chief complaint: Overdose Stated complaint: overdose Time Seen by Provider: 12/19/20 10:27 Source: EMS Mode of arrival: EMS Limitations: no limitations - History of Present Illness Initial comments: Dictation was produced using [employer] dictation software. please excuse any grammatical, word or spelling errors. Chief Complaint: 25-year-old male presents for overdose History of Present Illness: 25-year-old male is brought in by EMS. Patient allegedly overdosed at approximately 5 AM today. Supposedly took 6 units of fast acting insulin, 20 tabs of trazodone 100 mg and 15 tabs of 3 mg melatonin. EMS initial blood sugar was in the 50s. He is given IV dextrose with improvement to blood sugar of 205. Patient unable to fight HPI this time secondary to mental status. Patient was allegedly here in emergency department for hand injury after punching a tree. He was found to have an fracture. Splint was placed and he was sent home. Unable to obtain secondary to mental status. PHYSICAL EXAM: General Impression: Arousable to painful stimuli, pale, nondiaphoretic, right upper extremity splint HEENT: Normocephalic atraumatic, extra-ocular movements intact, pupils equal and reactive to light bilaterally, dry mucous membranes Cardiovascular: Heart regular rate and rhythm Chest: no retractions, no tachypnea Abdomen: abdomen soft, non-tender, non-distended, no organomegaly Musculoskeletal: Pulses present and equal in all extremities, no peripheral edema Motor: no focal deficits noted Neurological: no focal motor or sensory deficits noted Skin: Nonerythematous, no diaphoresis, slightly dry ED course: 25-year-old male presents after polysubstance overdose. Vital signs upon arrival shows blood pressure of 65/39, worse vital signs within acceptable limits. EKG shows prolonged QT with a QTC of 531. EKG interpretation: Ventricular rate one, sinus tachycardia, TN interval 150, QRS 94, QTC 531. Blood pressure was trending with improvement to 107/83 with IV fluids. Labo ratory evaluation obtained. CBC unremarkable. Venous blood gas shows pH of 7.3, bicarb of 21. Slight metabolic acidosis. Metabolic panel shows potassium 3.2. Glucose of 224. Lactic acidosis 4.4. Osmolal gap is -1.0. Tox labs are negative. Patient continues to have prolonged QT. He will be placed in ICU for admission for intensive medical monitoring, scheduled glucose checks. Case discussed with literature teacher Dr. Shankar was went except patient care to the ICU. Patient be admitted to Dr. Valenzuela. Case was discussed with poison control who made recommendations recorded by the nurse. - Related Data Home Medications Medication Instructions Recorded Confirmed INSULIN ASPART (NovoLOG) [NovoLOG See Protocol SQ AC-TID 08/27/20 12/19/20 (formulary)] Insulin Detemir (Levemir) [Levemir] 25 unit SQ DAILY 08/27/20 12/19/20 traZODone HCL 100 - 200 mg PO HS PRN 11/02/20 12/19/20 Metoclopramide [Reglan] 10 mg PO AC-TID PRN 12/19/20 12/19/20 Previous Rx's Medication Instructions Recorded HYDROcodone/APAP 5-325MG [[place] 1 tab PO Q6HR PRN 3 Days #12 tab 12/07/20 5-325] Allergies Allergy/AdvReac Type Severity Reaction Status Date / Time No Known Allergies Allergy Verified 12/19/20 05:05 Review of Systems ROS Statement: Those systems with pertinent positive or pertinent negative responses have been documented in the HPI. ROS Other: All systems not noted in ROS Statement are negative. Past Medical History Past Medical History: Asthma, Diabetes Mellitus, Skin Disorder Additional Past Medical History / Comment(s): IDDM type I, neuropathy bilateral feet, DKA, eczema. History of multiple psychiatric hospitalizations or suicide attempts. History of Any Multi-Drug Resistant Organisms: None Reported Past Surgical History: Adenoidectomy Additional Past Surgical History / Comment(s): 2002 Past Anesthesia/Blood Transfusion Reactions: No Reported Reaction Past Psychological History: Anxiety, Depression Smoking Status: Current every day smoker, Light tobacco smoker Past Alcohol Use History: None Reported Past Drug Use History: Marijuana - Past Family History Mother Family Medical History: CVA/TIA Father Family Medical History: Hyperlipidemia, Hypertension Additional Family Medical History / Comment(s): . General Exam Limitations: no limitations Course Vital Signs 12/19/20 12/19/20 12/19/20 10:30 10:39 10:43 Temperature 97.6 F Pulse Rate 105 H 99 Respiratory 16 16 Rate Blood Pressure 65/39 81/44 90/57 O2 Sat by Pulse 100 97 Oximetry 12/19/20 12/19/20 10:44 11:00 Temperature Pulse Rate 103 H 99 Respiratory 12 10 L Rate Blood Pressure 90/57 107/83 O2 Sat by Pulse 96 98 Oximetry Medical Decision Making - Lab Data Result diagrams: 12/19/20 10:36 12/19/20 10:36 Lab Results 12/19/20 12/19/20 12/19/20 Range/Units 10:24 10:36 10:36 WBC 10.1 (3.8-10.6) k/uL RBC 4.27 L (4.30-5.90) m/uL Hgb 13.6 (13.0-17.5) gm/dL Hct 40.4 (39.0-53.0) % MCV 94.7 (80.0-100.0) fL MCH 32.0 (25.0-35.0) pg MCHC 33.7 (31.0-37.0) g/dL RDW 13.2 (11.5-15.5) % Plt Count 266 (150-450) k/uL MPV 7.0 Neutrophils % 75 % Lymphocytes % 15 % Monocytes % 8 % Eosinophils % 1 % Basophils % 0 % Neutrophils # 7.6 (1.3-7.7) k/uL Lymphocytes # 1.5 (1.0-4.8) k/uL Monocytes # 0.8 (0-1.0) k/uL Eosinophils # 0.1 (0-0.7) k/uL Basophils # 0.0 (0-0.2) k/uL VBG pH (7.31-7.41) VBG pCO2 (37-51) mmHg VBG HCO3 (24-28) mmol/L Sodium 143 (137-145) mmol/L Potassium 3.2 L (3.5-5.1) mmol/L Chloride 108 H (98-107) mmol/L Carbon Dioxide 25 (22-30) mmol/L Anion Gap 10 mmol/L BUN 17 (9-20) mg/dL Creatinine 0.77 (0.66-1.25) mg/dL Est GFR (CKD-EPI)AfAm >90 (>60 ml/min/1.73 sqM) Est GFR (CKD-EPI)NonAf >90 (>60 ml/min/1.73 sqM) Glucose 224 H (74-99) mg/dL POC Glucose (mg/dL) 205 H (75-99) mg/dL POC Glu [employer] Heater Helper ID Latia Gracia Osmolality 302 H (280-301) mosm/kg Plasma Lactic Acid Len (0.7-2.0) mmol/L Calcium 9.4 (8.4-10.2) mg/dL Magnesium 2.1 (1.6-2.3) mg/dL Total Bilirubin 0.2 (0.2-1.3) mg/dL AST 22 (17-59) U/L ALT 12 (4-49) U/L Alkaline Phosphatase 78 (38-126) U/L Total Protein 6.6 (6.3-8.2) g/dL Albumin 4.2 (3.5-5.0) g/dL Salicylates <1.0 mg/dL Acetaminophen <10.0 ug/mL Serum Alcohol <10 mg/dL 12/19/20 12/19/20 12/19/20 Range/Units 10:36 10:37 10:39 WBC (3.8-10.6) k/uL RBC (4.30-5.90) m/uL Hgb (13.0-17.5) gm/dL Hct (39.0-53.0) % MCV (80.0-100.0) fL MCH (25.0-35.0) pg MCHC (31.0-37.0) g/dL RDW (11.5-15.5) % Plt Count (150-450) k/uL MPV Neutrophils % % Lymphocytes % % Monocytes % % Eosinophils % % Basophils % % Neutrophils # (1.3-7.7) k/uL Lymphocytes # (1.0-4.8) k/uL Monocytes # (0-1.0) k/uL Eosinophils # (0-0.7) k/uL Basophils # (0-0.2) k/uL VBG pH 7.30 L (7.31-7.41) VBG pCO2 45 (37-51) mmHg VBG HCO3 21 L (24-28) mmol/L Sodium (137-145) mmol/L Potassium (3.5-5.1) mmol/L Chloride (98-107) mmol/L Carbon Dioxide (22-30) mmol/L Anion Gap mmol/L BUN (9-20) mg/dL Creatinine (0.66-1.25) mg/dL Est GFR (CKD-EPI)AfAm (>60 ml/min/1.73 sqM) Est GFR (CKD-EPI)NonAf (>60 ml/min/1.73 sqM) Glucose (74-99) mg/dL POC Glucose (mg/dL) 201 H (75-99) mg/dL POC Glu [employer] Helper Latia Ramirez Osmolality (280-301) mosm/kg Plasma Lactic Acid Len 4.4 H* (0.7-2.0) mmol/L Calcium (8.4-10.2) mg/dL Magnesium (1.6-2.3) mg/dL Total Bilirubin (0.2-1.3) mg/dL AST (17-59) U/L ALT (4-49) U/L Alkaline Phosphatase (38-126) U/L Total Protein (6.3-8.2) g/dL Albumin (3.5-5.0) g/dL Salicylates mg/dL Acetaminophen ug/mL Serum Alcohol mg/dL 12/19/20 Range/Units 11:34 WBC (3.8-10.6) k/uL RBC (4.30-5.90) m/uL Hgb (13.0-17.5) gm/dL Hct (39.0-53.0) % MCV (80.0-100.0) fL MCH (25.0-35.0) pg MCHC (31.0-37.0) g/dL RDW (11.5-15.5) % Plt Count (150-450) k/uL MPV Neutrophils % % Lymphocytes % % Monocytes % % Eosinophils % % Basophils % % Neutrophils # (1.3-7.7) k/uL Lymphocytes # (1.0-4.8) k/uL Monocytes # (0-1.0) k/uL Eosinophils # (0-0.7) k/uL Basophils # (0-0.2) k/uL VBG pH (7.31-7.41) VBG pCO2 (37-51) mmHg VBG HCO3 (24-28) mmol/L Sodium (137-145) mmol/L Potassium (3.5-5.1) mmol/L Chloride (98-107) mmol/L Carbon Dioxide (22-30) mmol/L Anion Gap mmol/L BUN (9-20) mg/dL Creatinine (0.66-1.25) mg/dL Est GFR (CKD-EPI)AfAm (>60 ml/min/1.73 sqM) Est GFR (CKD-EPI)NonAf (>60 ml/min/1.73 sqM) Glucose (74-99) mg/dL POC Glucose (mg/dL) 115 H (75-99) mg/dL POC Glu [employer] Heater Helper ID Trev Leos Osmolality (280-301) mosm/kg Plasma Lactic Acid Len (0.7-2.0) mmol/L Calcium (8.4-10.2) mg/dL Magnesium (1.6-2.3) mg/dL Total Bilirubin (0.2-1.3) mg/dL AST (17-59) U/L ALT (4-49) U/L Alkaline Phosphatase (38-126) U/L Total Protein (6.3-8.2) g/dL Albumin (3.5-5.0) g/dL Salicylates mg/dL Acetaminophen ug/mL Serum Alcohol mg/dL Critical Care Time Critical Care Time: Yes Total Critical Care Time: 33 Disposition Clinical Impression: Overdose Disposition: ADMITTED IP TO THIS [facility] Condition: Critical Referrals: None,Stated [Primary Care Provider] - 1-2 days
[2020-12-19 10:46] LABS: Glucose,Whole Blood 201 mg/dL (75-99)
--- NOTE | 2020-12-19 10:56 | XR ---
EXAMINATION TYPE: XR chest 1V portable DATE OF EXAM: 12/19/2020 COMPARISON: 10/27/2020 HISTORY: Chest pain TECHNIQUE: Single frontal view of the chest is obtained. FINDINGS: There is no focal air space opacity, pleural effusion, or pneumothorax seen. The cardiac silhouette size is within normal limits. The osseous structures are intact. IMPRESSION: 1. No acute process.
[2020-12-19 11:04] LABS: VBG PH 7.3 (7.31-7.41)
[2020-12-19 11:07] LABS: ALT 12 U/L (4-49); AST 22 U/L (17-59); Acetaminophen <10.0 ug/mL; African American GFR (CKD) >90 (>60 ml/min/1.73 sqM); Albumin 4.2 g/dL (3.5-5.0); Alcohol <10 mg/dL; Alkaline Phosphatase 78 U/L (38-126); Anion Gap 10 mmol/L; Blood Urea Nitrogen 17 mg/dL (9-20); Calcium 9.4 mg/dL (8.4-10.2); Carbon Dioxide 25 mmol/L (22-30); Chloride 108 mmol/L (98-107); Glucose 224 mg/dL (74-99); Magnesium 2.1 mg/dL (1.6-2.3); Non-African American GFR(CKD) >90 (>60 ml/min/1.73 sqM); Potassium 3.2 mmol/L (3.5-5.1); Salicylate <1.0 mg/dL; Sodium 143 mmol/L (137-145); Total Bilirubin 0.2 mg/dL (0.2-1.3); Total Protein 6.6 g/dL (6.3-8.2)
[2020-12-19 11:19] LABS: Basophils % (A) 0 %; Eosinophils # (A) 0.1 k/uL (0-0.7); Eosinophils % (A) 1 %; HCT 40.4 % (39.0-53.0); HGB 13.6 gm/dL (13.0-17.5); Lymphocytes # (A) 1.5 k/uL (1.0-4.8); Lymphocytes % (A) 15 %; MCHC 33.7 g/dL (31.0-37.0); MCV 94.7 fL (80.0-100.0); Monocytes # (A) 0.8 k/uL (0-1.0); Monocytes % (A) 8 %; Neutrophils # (A) 7.6 k/uL (1.3-7.7); Neutrophils % (A) 75 %; Platelet Count 266 k/uL (150-450); RBC 4.27 m/uL (4.30-5.90); RDW 13.2 % (11.5-15.5); WBC 10.1 k/uL (3.8-10.6)
[2020-12-19] MEDS ORDERED: POTASSIUM CHLORIDE 20 MEQ in WATER FOR INJECTION 1 100ML.BAG IVPB STA (11:26)
[2020-12-19 11:36] LABS: Glucose,Whole Blood 115 mg/dL (75-99)
[2020-12-19] MEDS ORDERED: NALOXONE 0.4 MG/ML 1 ML VIAL IV PRN (11:46)
[2020-12-19] MEDS: SODIUM CHLORIDE 0.9% 1,000 ML IV SCH ×2 (12:03→20:22)
[2020-12-19 12:40] LABS: Glucose,Whole Blood 72 mg/dL (75-99)
[2020-12-19] MEDS ORDERED: DEXTROSE 50% SYRINGE 50 ML IVP STA (12:48)
[2020-12-19] MEDS ORDERED: ONDANSETRON 4 MG/2 ML VIAL IVP PRN (13:32)
--- NOTE | 2020-12-19 13:32 | P.CNPUL ---
History of Present Illness Consult date: 12/19/20 Chief complaint: Acute drug overdose History of present illness: Plan 5-year-old male patient presented to the burst department with an intention al drug overdose. The patient injected himself with insulin 100 units of short- acting NovoLog and he took a total of 20 tablets of 100 mg of trazodone when he also took a total of 15 tablets of 3 mg melatonin. He was brought in via EMS. On route, the patient was noted to have a blood sugar of 50. He was given IV D50 dextrose which both upper sugar up to 205. In the emergency department, he had another episode of low blood sugar and he was given another dose of D50. He is awake and alert. Communicating. Lethargic. Somnolent. Nauseated and he had a bout of emesis in the emergency department. Note that he wasn't immersed department earlier this morning after he punched a tree and sustained fractures to his second and fifth metatarsal bones/had. He was offered a splint and he was discharged home to presented back with the above-mentioned drug overdose. He claims that this was an intentional drug overdose, possibly a suicide. He has a history of diabetes mellitus and he is a brittle diabetic control. He has been hospitalized in the past for DKA. In the ED, his CBC was normal, normal electrolytes with a potassium level of 3.2 to be replaced, magnesium level is at 2.1, lactic acid level was at 4.4, serum Tylenol, salicylate and alcohol were all negative. Normal renal function. Normal electrolytes. Normal liver function tests. His EKG showed normal sinus tachycardia. There was incomplete right bundle branch block. His pronation of the QT with a corrected QT interval of 531 ms. Review of Systems Constitutional: Reports fatigue, Reports lethargy, Reports poor appetite, Reports weakness Eyes: denies as per HPI, denies blurred vision, denies bulging eye, denies decreased vision, denies diplopia, denies discharge, denies dry eye, denies irritation, denies itching, denies pain, denies photophobia, denies loss of peripheral vision, denies loss of vision, denies tunnel vision/blind spots Ears: deny: decreased hearing, ear discharge, earache, tinnitus Ears, nose, mouth and throat: Reports as per HPI Breasts: absent: as per HPI, gynecomastia Cardiovascular: Reports as per HPI Respiratory: Reports as per HPI Gastrointestinal: Reports nausea, Reports vomiting Genitourinary: Reports as per HPI Musculoskeletal: Reports as per HPI, Reports fractures Musculoskeletal: absent: ankle pain, ankle stiffness, ankle swelling Integumentary: Reports as per HPI Neurological: Reports as per HPI, Reports weakness Psychiatric: Reports depression, Reports suicidal ideation Endocrine: Reports as per HPI Hematologic/Lymphatic: Reports as per HPI Allergic/Immunologic: Reports as per HPI Past Medical History Past Medical History: Asthma, Diabetes Mellitus, Skin Disorder Additional Past Medical History / Comment(s): IDDM type I, neuropathy bilateral feet, DKA, eczema. History of multiple psychiatric hospitalizations or suicide attempts. History of Any Multi-Drug Resistant Organisms: None Reported Past Surgical History: Adenoidectomy Additional Past Surgical History / Comment(s): 2002 Past Anesthesia/Blood Transfusion Reactions: No Reported Reaction Past Psychological History: Anxiety, Depression Smoking Status: Current every day smoker, Light tobacco smoker Past Alcohol Use History: None Reported Past Drug Use History: Marijuana - Past Family History Mother Family Medical History: CVA/TIA Father Family Medical History: Hyperlipidemia, Hypertension Additional Family Medical History / Comment(s): . Medications and Allergies Home Medications Medication Instructions Recorded Confirmed Type INSULIN ASPART (NovoLOG) [NovoLOG See Protocol SQ AC-TID 08/27/20 12/19/20 History (formulary)] Insulin Detemir (Levemir) [Levemir] 25 unit SQ DAILY 08/27/20 12/19/20 History traZODone HCL 100 - 200 mg PO HS PRN 11/02/20 12/19/20 History HYDROcodone/APAP 5-325MG [[place] 1 tab PO Q6HR PRN 3 Days #12 tab 12/07/20 12/19/20 Rx 5-325] Metoclopramide [Reglan] 10 mg PO AC-TID PRN 12/19/20 12/19/20 History Allergies Allergy/AdvReac Type Severity Reaction Status Date / Time No Known Allergies Allergy Verified 12/19/20 05:05 Physical Exam Vitals: Vital Signs Temp Pulse Resp BP Pulse Ox 12/19/20 12:42 104 H 20 118/76 99 12/19/20 12:30 99 16 115/82 98 12/19/20 12:04 100 12 97/73 98 12/19/20 12:00 96 10 L 109/79 98 12/19/20 11:30 114 H 12 103/72 98 12/19/20 11:00 99 10 L 107/83 98 12/19/20 10:44 103 H 12 90/57 96 12/19/20 10:43 99 16 90/57 97 12/19/20 10:39 81/44 12/19/20 10:30 97.6 F 105 H 16 65/39 100 Intake and Output 12/18/20 12/19/20 12/19/20 22:59 06:59 14:59 Other: Weight 72 kg The patient appeared well nourished and normally developed. Vital signs as documented. Head exam is unremarkable. No scleral icterus or corneal arcus noted. Neck is without jugular venous distension, thyromegaly, or carotid bruits. Carotid upstrokes are brisk bilaterally. Lungs are clear to auscultation and percussion. Cardiac exam reveals the PMI to be normally sized and situated. Rhythm is regular. First and second heart sounds normal. No murmurs, rubs or gallops. Abdominal exam reveals normal bowel sounds, no masses, no organomegaly and no aortic enlargement. Extremities are nonedematous and both femoral and pedal pulses are normal.Examination of the skin revealed no evidence of significant rashes, suspicious appearing nevi or other concerning lesions. Neurologically the patient is lethargic yet arousable. Moving all 4 extremities without any focal neurological deficit. He is a bit uncooperative with examination. He is able to follow simple commands. He is able to communicate. Results - Laboratory Findings CBC and BMP: 12/19/20 10:36 12/19/20 10:36 Abnormal lab findings: Abnormal Labs 12/19/20 12/19/20 12/19/20 10:24 10:36 10:36 RBC 4.27 L VBG pH VBG HCO3 Potassium 3.2 L Chloride 108 H Glucose 224 H POC Glucose (mg/dL) 205 H Osmolality 302 H Plasma Lactic Acid Len 12/19/20 12/19/20 12/19/20 10:36 10:37 10:39 RBC VBG pH 7.30 L VBG HCO3 21 L Potassium Chloride Glucose POC Glucose (mg/dL) 201 H Osmolality Plasma Lactic Acid Len 4.4 H* 12/19/20 12/19/20 11:34 12:39 RBC VBG pH VBG HCO3 Potassium Chloride Glucose POC Glucose (mg/dL) 115 H 72 L Osmolality Plasma Lactic Acid Len Assessment and Plan Plan: 1 acute drug overdose and the patient to be total of 15 tablets of trazodone 100 mg in combination with short-acting insulin, 100 units, and few tablets of melatonin. The patient is awake, lethargic, responsive, following commands and moving all 4 extremities. No focal neurological deficits. Slight hypotensive at the time of admission, given a bolus of 1 L of IV fluids and currently is normotensive on no pressors. EKG showing sinus tachycardia prolongation of the QT and QTC is measured to be at 531 ms. This could be a trazodone effects. He'll be admitted to the ICU for monitoring. He needs suicide precautions. 2 prolongation of QTC secondary to drug overdose 3 sinus tachycardia 4 brief hypotension recovered 5 lethargy and sleepiness secondary to trazodone toxicity 6 hypoglycemia secondary to insulin toxicity, short-acting insulin was administered by the patient in large quantities. He was given 2 A of D50 thus far. 7 history of type I diabetes mellitus 8 previous history of DKA 9 peripheral neuropathy 10 history of multiple psychiatric hospitalizations/suicidal attempts 11 nausea and emesis secondary to above Plan IV fluid hydration with normal state rate of 120 mL an hour Monitor the QTc interval Replace magnesium as tolerated should there be and up in a magnesium level. Current level is at 2.1. Replace potassium Monitor hemodynamics and no hypotension for now Monitor blood sugar control and give D50 if needed Hold long-acting insulin as the patient takes Levemir 25 units at home and addition to a sinus care coverage Admit this patient to the intensive care unit [place] for nausea Lovenox for DVT prophylaxis Suicide precautions and psychiatric evaluation
--- NOTE | 2020-12-19 13:37 | P.CN ---
Psychiatric Consult - . Consult date: 12/19/20 Consult:: Patient is a 25-year-old male with history of type 1 diabetes with multiple admissions for DKA and depression/suicidal thoughts presented to the hospital by EMS for alleged overdose at 5 AM this morning. According to ER report patient allegedly took 6 units of fast acting insulin 20 tablets of trazodone and 15 tablets of melatonin in a suicide attempt. Patient's blood glucose initially was in the 50s by EMS. Patient was recently treated for a fracture in his hand after punching a tree. His QTC was prolonged at 531. Calibration Engineer attempted to see patient today at the bedside however patient was somnolent and unable to wake up to be evaluated and speak with newswriter. Psychiatry will continue to follow and re-attempt to interview patient when he is more awake. Please continue with 1:1 sitter as patient is impulsive and has a hx of self harm/suicidal gestures and attempts.
[2020-12-19] MEDS ORDERED: METOCLOPRAMIDE 5 MG/ML 2 ML VIAL IVP STA (13:39)
[2020-12-19 13:43] LABS: Glucose,Whole Blood 175 mg/dL (75-99)
[2020-12-19 14:20] LABS: Glucose,Whole Blood 192 mg/dL (75-99)
[2020-12-19 15:23] LABS: Glucose,Whole Blood 201 mg/dL (75-99)
[2020-12-19 16:01] LABS: Glucose,Whole Blood 222 mg/dL (75-99)
[2020-12-19] MEDS ORDERED: METOCLOPRAMIDE 5 MG/ML 2 ML VIAL IVP PRN (16:19)
[2020-12-19 17:02] LABS: African American GFR (CKD) >90 (>60 ml/min/1.73 sqM); Anion Gap 9 mmol/L; Blood Urea Nitrogen 15 mg/dL (9-20); Calcium 8.5 mg/dL (8.4-10.2); Carbon Dioxide 24 mmol/L (22-30); Chloride 107 mmol/L (98-107); Glucose 259 mg/dL (74-99); Non-African American GFR(CKD) >90 (>60 ml/min/1.73 sqM); Potassium 4.5 mmol/L (3.5-5.1); Sodium 140 mmol/L (137-145)
[2020-12-19 17:10] LABS: Glucose,Whole Blood 230 mg/dL (75-99)
[2020-12-19 18:14] LABS: Glucose,Whole Blood 276 mg/dL (75-99)
--- NOTE | 2020-12-19 18:41 | HP ---
HISTORY AND PHYSICAL CHIEF COMPLAINT: DKA and overdose. HISTORY OF PRESENT ILLNESS: This is another recent admission for this 25-year-old who keeps coming to the hospital with major depression and not taking his insulin which results in DKA. This time he came in with overdose of trazodone and probably supplemented with overdose of insulin. He was hypoglycemic. REVIEW OF SYSTEMS: Not obtained. Past medical history, family history and personal and social histories are all otherwise unremarkable and unchanged from his recent admitting and discharge summaries. He does not follow up in the office after he is discharged and we have no way of knowing what medications he is on, if any. PHYSICAL EXAMINATION: Blood pressure 106/77 with a pulse of 94, respirations of 40 and he is afebrile. In general, he appears to be slender, dehydrated and lethargic. Head, ears, eyes, nose, mouth and throat were normal. Pupils were equal, round and reactive. Chest is clear. Cardiac exam demonstrated sinus tachycardia. The abdomen is flat, soft and nontender. Bowel sounds are heard. Extremities normal. Neurological he is intact. He is admitted to the hospital with diagnoses: 1. Overdose of trazodone and insulin. 2. Major depression. 3. Uncontrolled type 1 insulin-dependent diabetes mellitus. PLAN: 1. Bedrest. 2. IV fluids. 3. Suicide precautions. 4. Psychiatry consult. GRACE / ALDEN: [id number] /
[2020-12-19] MEDS: ENOXAPARIN 40 MG/0.4 ML SYRINGE SQ SCH (19:47)
[2020-12-19 20:12] LABS: Glucose,Whole Blood 247 mg/dL (75-99)
[2020-12-19 21:06] LABS: Glucose,Whole Blood 244 mg/dL (75-99)
[2020-12-19 22:12] LABS: Glucose,Whole Blood 254 mg/dL (75-99)
[2020-12-19] MEDS: INSULIN ASPART (NovoLOG) 100 UNIT/ML VIAL SQ SCH (22:53)
[2020-12-20 05:57] LABS: Glucose,Whole Blood 206 mg/dL (75-99)
[2020-12-20] MEDS: SODIUM CHLORIDE 0.9% 1,000 ML IV SCH (06:05)
[2020-12-20 06:23] LABS: Glucose,Whole Blood 161 mg/dL (75-99)
[2020-12-20] MEDS: INSULIN ASPART (NovoLOG) 100 UNIT/ML VIAL SQ SCH ×2 (06:48→12:26)
[2020-12-20] MEDS ORDERED: Potassium Replacement Protocol 1 EACH MISC MISCELLANE PRN (06:50)
[2020-12-20] MEDS ORDERED: Magnesium Replacement Protocol 1 EACH MISC MISCELLANE PRN (06:50)
[2020-12-20] MEDS ORDERED: POTASSIUM CHLORIDE ER 20 MEQ TAB.ER PO SCH (07:00)
[2020-12-20] MEDS ORDERED: INSULIN DETEMIR (LEVEMIR) 100 UNIT/ML SYR SQ SCH (07:00)
[2020-12-20] MEDS: MAGNESIUM SULFATE-D5W PMX 1 GM in DEXTROSE/WATER 1 100ML.BAG IVPB SCH ×2 (07:05→08:48)
[2020-12-20 08:19] LABS: ALT 9 U/L (4-49); AST 17 U/L (17-59); African American GFR (CKD) >90 (>60 ml/min/1.73 sqM); Albumin 3.8 g/dL (3.5-5.0); Alkaline Phosphatase 78 U/L (38-126); Anion Gap 10 mmol/L; Blood Urea Nitrogen 13 mg/dL (9-20); Calcium 8.5 mg/dL (8.4-10.2); Carbon Dioxide 24 mmol/L (22-30); Chloride 107 mmol/L (98-107); Glucose 207 mg/dL (74-99); Magnesium 1.9 mg/dL (1.6-2.3); Non-African American GFR(CKD) >90 (>60 ml/min/1.73 sqM); Phosphorus 3.5 mg/dL (2.5-4.5); Potassium 3.9 mmol/L (3.5-5.1); Sodium 141 mmol/L (137-145); Total Bilirubin 0.4 mg/dL (0.2-1.3); Total Protein 6.2 g/dL (6.3-8.2)
[2020-12-20 08:28] VITALS: RESP 15
[2020-12-20 08:29] LABS: Basophils % (A) 0 %; Eosinophils # (A) 0.1 k/uL (0-0.7); Eosinophils % (A) 0 %; HCT 38.7 % (39.0-53.0); HGB 12.9 gm/dL (13.0-17.5); Lymphocytes # (A) 1.3 k/uL (1.0-4.8); Lymphocytes % (A) 11 %; MCH 31.8 pg (25.0-35.0); MCHC 33.4 g/dL (31.0-37.0); MCV 95.3 fL (80.0-100.0); Monocytes # (A) 0.4 k/uL (0-1.0); Monocytes % (A) 3 %; Neutrophils # (A) 9.8 k/uL (1.3-7.7); Neutrophils % (A) 85 %; Platelet Count 298 k/uL (150-450); RBC 4.06 m/uL (4.30-5.90); RDW 13.3 % (11.5-15.5); WBC 11.6 k/uL (3.8-10.6)
[2020-12-20] MEDS: ENOXAPARIN 40 MG/0.4 ML SYRINGE SQ SCH (08:48)
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
[2020-12-20 09:17] VITALS: BP 122/81; TEMP 98.6
[2020-12-20 10:07] VITALS: PULSE 90
[2020-12-20] MEDS ORDERED: traZODone HCL 50 MG TAB PO PRN (10:51)
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
[2020-12-20 11:46] LABS: Glucose,Whole Blood 205 mg/dL (75-99)
[2020-12-20 13:41] LABS: Hemoglobin A1C 9.1 % (4.0-6.0)
--- NOTE | 2020-12-20 21:10 | DS ---
DISCHARGE SUMMARY CHIEF COMPLAINT: 1. Drug ingestion overdose including trazodone and insulin. 2. Depression. HISTORY OF PRESENT ILLNESS AND PHYSICAL EXAMINATION: Details of this man's history and physical can be found in the initial workup. LABORATORY STUDIES: While he was in the hospital, he had laboratory studies, details of which can be found in the laboratory section of his chart. COURSE IN THE HOSPITAL: After admission, he was placed on bedrest, started on intravenous fluids and suicide precautions with bedside sitter. He became more awake and alert. He was seen by Psychiatry and was transferred to [facility]. FINAL DIAGNOSES: 1. Drug ingestion overdose. 2. Overdose of insulin. 3. Major depression. OPERATIONS: None. CONSULTATION: Psychiatry. He is improved. MMODL / IJN: [id number] /
[2020-12-20] MEDS ORDERED: INSULIN ASPART (NovoLOG) 100 UNIT/ML VIAL SQ ONE (23:59)
[2020-12-20] MEDS ORDERED: SODIUM CHLORIDE 0.9% 1,000 ML BAG ONE (23:59)
[2020-12-21] MEDS ORDERED: DULoxetine HCL 30 MG CAPSULE.DR PO SCH (09:00)
== END 2020-12-20 14:12 | disposition other institution (70) ==
LOC: EC 10:19 → INTOOBSV 11:46 → 2SICU 11:46 → UNDODISIN 12-20 14:12
PROVIDERS: ADMIT Family Medicine; ATTEND Family Medicine
DX: T43.212A Poisoning by selective serotonin and norepinephrine reuptake inhibitors, intentional self-harm, initial encounter (principal); T38.3X2A Poisoning by insulin and oral hypoglycemic [antidiabetic] drugs, intentional self-harm, initial encounter; F32.9 Major depressive disorder, single episode, unspecified; S62.91XD Unspecified fracture of right hand, subsequent encounter for fracture with routine healing; E10.42 Type 1 diabetes mellitus with diabetic polyneuropathy; J45.909 Unspecified asthma, uncomplicated; L30.9 Dermatitis, unspecified; F41.9 Anxiety disorder, unspecified; I95.9 Hypotension, unspecified; I45.10 Unspecified right bundle-branch block; F17.200 Nicotine dependence, unspecified, uncomplicated; Z79.4 Long term (current) use of insulin; Z91.5 Personal history of self-harm; Z82.3 Family history of stroke; Z82.49 Family history of ischemic heart disease and other diseases of the circulatory system; Z83.438 Family history of other disorder of lipoprotein metabolism and other lipidemia
CPT/HCPCS: 96376; 96366 ×2; 96367; 96372 ×2; 96361; 96365; 96375; 99285; 36415; 93005; 83930; 80053 ×2; 80048; 82803; 83605; 83735 ×2; 84100; 85025 ×2; 80143; 83036; 80179; 71045; G0378 ×2; G0480; J2765; J3480; J1650 ×2; J3475; 80320

== ENCOUNTER 2020-12-20 13:06 | Inpatient (IN) | payer MEDICAID ==
[2020-12-20] MEDS ORDERED: LORazepam 1 MG TAB PO PRN (14:56)
[2020-12-20] MEDS ORDERED: MAG HYDROX/AL HYDROX/SIMETH 30 ML CUP PO PRN (14:56)
[2020-12-20] MEDS ORDERED: MAGNESIUM HYDROXIDE 2,400 MG/10 ML CUP PO PRN (14:56)
[2020-12-20] MEDS ORDERED: ACETAMINOPHEN TAB 325 MG TAB PO PRN (14:56)
[2020-12-20] MEDS ORDERED: LORazepam 2 MG/ML INJ IM PRN (15:05)
[2020-12-20] MEDS ORDERED: haloperidoL 5 MG TAB PO PRN (15:05)
[2020-12-20] MEDS ORDERED: HALOPERIDOL LACTATE 5 MG/ML 1 ML VIAL IM PRN (15:05)
[2020-12-20] MEDS ORDERED: traZODone HCL 50 MG TAB PO PRN (15:09)
[2020-12-20] MEDS ORDERED: METOCLOPRAMIDE 10 MG TAB PO PRN (15:10)
[2020-12-20 17:55] LABS: Glucose,Whole Blood 171 mg/dL (75-99)
[2020-12-20] MEDS: INSULIN ASPART (NovoLOG) 100 UNIT/ML VIAL SQ SCH ×2 (18:14→20:19)
[2020-12-20 20:10] LABS: Glucose,Whole Blood 248 mg/dL (75-99)
[2020-12-21 07:50] LABS: Glucose,Whole Blood 205 mg/dL (75-99)
[2020-12-21] MEDS: INSULIN DETEMIR (LEVEMIR) 100 UNIT/ML SYR SQ SCH (07:51)
[2020-12-21] MEDS: INSULIN ASPART (NovoLOG) 100 UNIT/ML VIAL SQ SCH ×4 (07:51→20:06)
[2020-12-21] MEDS ORDERED: DULoxetine HCL 30 MG CAPSULE.DR PO SCH (09:00)
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
[2020-12-21 12:57] LABS: Glucose,Whole Blood 196 mg/dL (75-99)
[2020-12-21 17:36] LABS: Glucose,Whole Blood 235 mg/dL (75-99)
--- NOTE | 2020-12-21 18:58 | CONS ---
CONSULTATION CHIEF COMPLAINT: Major depression and overdose, trazodone and insulin. HISTORY OF PRESENT ILLNESS: This gentleman is doing well today. He is having no problems. He wanted to talk about bringing up a problem that he is having with erections. REVIEW OF SYSTEMS: He has had no excessive thirst, visual changes, lethargy, nausea, vomiting, chest pain, abdominal pain, etc. Past medical history, family history personal and social histories are all otherwise unchanged. PHYSICAL EXAMINATION: Blood pressure is 118/74 with a pulse of 86, respirations of 30. He is afebrile. In general he appeared to be tall, slender, awake, alert, and in no acute distress. Skin color is normal. Skin is warm, dry. Head, ears, eyes, nose, mouth and throat were normal. Neck veins are not distended. Thyroid is not enlarged. Chest is clear. Cardiac exam is normal. Abdomen is soft, nontender. Extremities: Normal. Neurologic is intact. IMPRESSION: 1. Major depression. 2. Elective uncontrolled type 1 diabetes mellitus. 3. Erectile dysfunction. PLAN: 1. Free testosterone. 2. I consulted patient on the various etiologies of erectile dysfunction and possible treatments. MMODL / IJN: [id number] /
[2020-12-21 20:03] LABS: Glucose,Whole Blood 249 mg/dL (75-99)
[2020-12-21 20:04] LABS: Chol/HDL Ratio 2.18; Cholesterol 87 mg/dL (0-200); Triglycerides <50.0 mg/dL (0.0-149.0)
[2020-12-22 00:27] VITALS: BP 128/83; PULSE 60; RESP 18; TEMP 97.8
[2020-12-22 02:38] LABS: Glucose,Whole Blood 192 mg/dL (75-99)
[2020-12-22] MEDS: INSULIN ASPART (NovoLOG) 100 UNIT/ML VIAL SQ SCH ×3 (07:44→17:39)
[2020-12-22] MEDS: INSULIN DETEMIR (LEVEMIR) 100 UNIT/ML SYR SQ SCH (07:44)
[2020-12-22 07:49] LABS: Glucose,Whole Blood 280 mg/dL (75-99)
--- NOTE | 2020-12-22 09:38 | P.PN ---
Progress Note - Text Progress Note Date: 12/22/20 S&O: Patient was seen for a follow-up examination. He said he slept okay last night, his right hand is still hurting a little in spite of wearing a prosthesis. His blood sugar still runs high and is on Levemir 20 units SQ daily. He said he was taking 10 units at home and said he doesn't understand why the doctors here give him different dose. When he was told they're giving him 20 units here he did not like that got angry and walked out saying that he will talk to Dr. Merlos on Friday. Prior to this he wanted to know the x-ray report of his hand. It was read to him and he didn't have any issues with that. This is a white ambulatory male who is relating [facility]. He is uncoope rative, gets angry easily and walked out. His speech is fairly spontaneous relevant and goal-directed. However he blames everyone and everything for his problems and refuses to answer questions or take responsibility for his behavior. His mood is irritable and affect is appropriate to the thought content. He continues to deny hallucinations delusional thinking suicide and homicide thoughts. He is well oriented with adequate memory concentration and general fund of knowledge. His insight and judgment appear to be quite impaired which he has been showing since childhood. A&P: Continue current supervision, therapy including groups.
[2020-12-22 12:53] LABS: Glucose,Whole Blood 216 mg/dL (75-99)
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
[2020-12-22 17:36] LABS: Glucose,Whole Blood 228 mg/dL (75-99)
--- NOTE | 2020-12-22 21:40 | PN ---
PROGRESS NOTE CHIEF COMPLAINT: Major depression and diabetes. HISTORY OF PRESENT ILLNESS: This gentleman is doing well. Sugars are still elevated and his insulin will be increased. PHYSICAL EXAMINATION: Physical exam is unchanged. IMPRESSION: Uncontrolled insulin-dependent type 1 diabetes mellitus. PLAN: Increase short and long-acting insulins and monitor blood sugars. MMODL / IJN: [id number] /
[2020-12-23] MEDS ORDERED: INSULIN DETEMIR (LEVEMIR) 100 UNIT/ML SYR SQ SCH (07:00)
== END 2020-12-22 18:05 | disposition home or self-care (01) | DRG 883 ==
LOC: 3MHU 14:27
PROVIDERS: ADMIT Psychiatry & Neurology Psychiatry; ATTEND Psychiatry & Neurology Psychiatry
DX: F60.3 Borderline personality disorder (principal); F13.20 Sedative, hypnotic or anxiolytic dependence, uncomplicated; W22.09XA Striking against other stationary object, initial encounter; Z79.4 Long term (current) use of insulin; S62.336A Displaced fracture of neck of fifth metacarpal bone, right hand, initial encounter for closed fracture; T38.3X2A Poisoning by insulin and oral hypoglycemic [antidiabetic] drugs, intentional self-harm, initial encounter; T43.212A Poisoning by selective serotonin and norepinephrine reuptake inhibitors, intentional self-harm, initial encounter; T50.992A Poisoning by other drugs, medicaments and biological substances, intentional self-harm, initial encounter; F12.20 Cannabis dependence, uncomplicated; F33.3 Major depressive disorder, recurrent, severe with psychotic symptoms; J45.909 Unspecified asthma, uncomplicated; K21.9 Gastro-esophageal reflux disease without esophagitis; N52.9 Male erectile dysfunction, unspecified; Z82.49 Family history of ischemic heart disease and other diseases of the circulatory system; F41.9 Anxiety disorder, unspecified; E10.42 Type 1 diabetes mellitus with diabetic polyneuropathy; L30.9 Dermatitis, unspecified
CPT/HCPCS: 80061; 84402; 84439; 84443

== ENCOUNTER 2021-01-02 01:19 | Emergency (ER) | payer OTHER ==
[2021-01-02 01:25] VITALS: BP 129/91; PULSE 76; RESP 18; TEMP 97.5
--- NOTE | 2021-01-02 01:47 | ED ---
General Adult HPI - General Chief complaint: Skin/Abscess/Foreign Body Stated complaint: lt foot injury/pain Time Seen by Provider: 01/02/21 01:26 Source: patient - History of Present Illness Initial comments: 25-year-old male presents emergency Department with a chief complaint of wound in the foot. Patient reports his been ongoing for the past 2 weeks. Patient states she is a type I diabetic and the sugars not well controlled. States his girlfriend advised him to come to emergency department because her grandfather had a foot of dictation following an infection. Patient reports it is small sk in avulsion about 2 weeks ago. States the scab formed over it he has been picking at it. However, he denies any discharge from the region. Reports mild erythema around it. No fevers chills. - Related Data Home Medications Medication Instructions Recorded Confirmed Insulin Detemir (Levemir) [Levemir] 25 unit SQ DAILY 08/27/20 12/19/20 Allergies Allergy/AdvReac Type Severity Reaction Status Date / Time No Known Allergies Allergy Verified 01/02/21 01:26 Review of Systems ROS Statement: Those systems with pertinent positive or pertinent negative responses have been documented in the HPI. ROS Other: All systems not noted in ROS Statement are negative. Past Medical History Past Medical History: Asthma, Diabetes Mellitus, Skin Disorder Additional Past Medical History / Comment(s): IDDM type I, neuropathy bilateral feet, DKA, eczema. History of multiple psychiatric hospitalizations or suicide attempts. History of Any Multi-Drug Resistant Organisms: None Reported Past Surgical History: Adenoidectomy Additional Past Surgical History / Comment(s): 2002 Past Anesthesia/Blood Transfusion Reactions: No Reported Reaction Past Psychological History: Anxiety, Depression Smoking Status: Never smoker Past Alcohol Use History: None Reported Past Drug Use History: Marijuana - Past Family History Mother Family Medical History: CVA/TIA Father Family Medical History: Hyperlipidemia, Hypertension Additional Family Medical History / Comment(s): . General Exam Limitations: no limitations General appearance: alert, in no apparent distress Head exam: Present: atraumatic, normocephalic, normal inspection Eye exam: Present: normal appearance, PERRL, EOMI Pupils: Present: normal accommodation ENT exam: Present: normal exam, normal oropharynx, mucous membranes moist Neck exam: Present: normal inspection, full ROM. Absent: tenderness Respiratory exam: Present: normal lung sounds bilaterally. Absent: respiratory distress Cardiovascular Exam: Present: regular rate, normal rhythm, normal heart sounds. Absent: systolic murmur Extremities exam: Present: full ROM, normal capillary refill. Absent: normal inspection (Well-healing wound on the dorsal aspect of the left foot), tenderness (Nontender), pedal edema, joint swelling, calf tenderness Back exam: Present: normal inspection, full ROM. Absent: tenderness Neurological exam: Present: alert, oriented X3 Psychiatric exam: Present: normal affect, normal mood Skin exam: Present: warm, dry, intact, normal color Course Vital Signs 01/02/21 01:23 Temperature 97.5 F L Pulse Rate 76 Respiratory 18 Rate Blood Pressure 129/91 O2 Sat by Pulse 99 Oximetry Medical Decision Making - Medical Decision Making 25-year-old male presents emergency Department with chief complaint of wound on the foot. On Physical examination, the wound is healing well. I advised him to keep it covered with gauze and tape. Not to apply anything also. There is no signs of infection at this time. Advised for PCP follow-up. Advised to return if symptoms worsen. Disposition Clinical Impression: Healing wound Disposition: HOME SELF-CARE Condition: Stable Instructions (If sedation given, give patient instructions): Wound Healing and Your Diet (ED) Additional Instructions: Please return to the Emergency Department if symptoms worsen or any other concerns. Is patient prescribed a controlled substance at d/c from ED?: No Referrals: Brown Valenzuela MD [Primary Care Provider] - 1-2 days Time of Disposition: 01:47
== END 2021-01-02 02:04 | disposition home or self-care (01) ==
LOC: EC 01:19
DX: S91.302D Unspecified open wound, left foot, subsequent encounter (principal); J45.909 Unspecified asthma, uncomplicated; E10.40 Type 1 diabetes mellitus with diabetic neuropathy, unspecified; F41.9 Anxiety disorder, unspecified; F32.9 Major depressive disorder, single episode, unspecified; F12.90 Cannabis use, unspecified, uncomplicated; X58.XXXD Exposure to other specified factors, subsequent encounter
CPT/HCPCS: 99283

== ENCOUNTER 2021-05-02 20:13 | Observation (INO) | payer OTHER ==
[2021-05-02] MEDS ORDERED: SODIUM CHLORIDE 0.9% 2,000 ML IV STA (20:23)
[2021-05-02 20:41] LABS: Glucose,Whole Blood 341 mg/dL (75-99)
[2021-05-02 20:54] LABS: ABG HCO3 23 mmol/L (21-25); ABG Oxygen Saturation 99.7 % (94-97); ABG PCO2 47 mmHg (35-45); ABG PH 7.29 (7.35-7.45); ABG PO2 270 mmHg (83-108); ABG TCO2 24 mmol/L (19-24); Allen Test Performed? Yes
[2021-05-02 20:56] LABS: Basophils # (A) 0.1 k/uL (0-0.2); Basophils % (A) 1 %; Eosinophils # (A) 0.1 k/uL (0-0.7); Eosinophils % (A) 1 %; HCT 46.4 % (39.0-53.0); HGB 15.3 gm/dL (13.0-17.5); Lymphocytes # (A) 2.8 k/uL (1.0-4.8); Lymphocytes % (A) 28 %; MCH 30.6 pg (25.0-35.0); MCV 92.6 fL (80.0-100.0); Mean Platelet Volume 7.1; Monocytes # (A) 0.6 k/uL (0-1.0); Monocytes % (A) 6 %; Neutrophils # (A) 6.2 k/uL (1.3-7.7); Neutrophils % (A) 62 %; Platelet Count 285 k/uL (150-450); RBC 5.01 m/uL (4.30-5.90); RDW 12.2 % (11.5-15.5); WBC 9.9 k/uL (3.8-10.6)
--- NOTE | 2021-05-02 20:58 | ED ---
General Adult HPI - General Stated complaint: ETOH Time Seen by Provider: 05/02/21 20:16 Source: EMS, RN notes reviewed, old records reviewed Mode of arrival: EMS Limitations: altered mental status - History of Present Illness Initial comments: This is a 25-year-old male well-known emergency department presents today via EMS for altered mental status, vomiting, possible alcohol intoxication, possible DKA. Patient's blood sugar is elevated at 342. Patient is found to be covered in emesis, feces. Patient is responsive to painful stimuli. Patient's had no signs of respiratory distress.. Patient has no obvious injuries. Is unclear if there is any drug involvement. Patient has had multiple admissions in the past for DKA. - Related Data Home Medications Medication Instructions Recorded Confirmed Insulin Detemir (Levemir) [Levemir] 25 unit SQ DAILY 08/27/20 05/02/21 Albuterol Sulfate [Proair Hfa] 2 puff INHALATION RT-QID PRN 05/02/21 05/02/21 Insulin Aspart [NovoLOG] 10 units SQ ACHS 05/02/21 05/02/21 Sildenafil Citrate [Sildenafil] 20 - 100 mg PO DAILY PRN 05/02/21 05/02/21 Allergies Allergy/AdvReac Type Severity Reaction Status Date / Time No Known Allergies Allergy Verified 01/02/21 01:26 Review of Systems ROS Statement: Those systems with pertinent positive or pertinent negative responses have been documented in the HPI. ROS Other: All systems not noted in ROS Statement are negative. Past Medical History Past Medical History: Asthma, Diabetes Mellitus, Skin Disorder Additional Past Medical History / Comment(s): IDDM type I, neuropathy bilateral feet, DKA, eczema. History of multiple psychiatric hospitalizations or suicide attempts. History of Any Multi-Drug Resistant Organisms: None Reported Past Surgical History: Adenoidectomy Additional Past Surgical History / Comment(s): 2002 Past Anesthesia/Blood Transfusion Reactions: No Reported Reaction Past Psychological History: Anxiety, Depression Smoking Status: Never smoker Past Alcohol Use History: None Reported Past Drug Use History: Marijuana - Past Family History Mother Family Medical History: CVA/TIA Father Family Medical History: Hyperlipidemia, Hypertension Additional Family Medical History / Comment(s): . General Exam Limitations: altered mental status General appearance: in no apparent distress, lethargic Head exam: Present: atraumatic, normocephalic, normal inspection Eye exam: Present: normal appearance, PERRL, EOMI. Absent: scleral icterus, conjunctival injection, periorbital swelling ENT exam: Present: normal exam, normal oropharynx, mucous membranes moist Neck exam: Present: normal inspection, full ROM. Absent: tenderness, meningismus, lymphadenopathy Respiratory exam: Present: normal lung sounds bilaterally. Absent: respiratory distress, wheezes, rales, rhonchi, stridor Cardiovascular Exam: Present: regular rate, normal rhythm, normal heart sounds. Absent: systolic murmur, diastolic murmur, rubs, gallop, clicks GI/Abdominal exam: Present: soft, normal bowel sounds. Absent: distended, tenderness, guarding, rebound, rigid Neurological exam: Absent: alert Skin exam: Present: warm, dry, intact, normal color. Absent: rash Course Vital Signs 05/02/21 05/02/21 20:38 22:03 Pulse Rate 82 112 H Respiratory 13 24 Rate Blood Pressure 117/87 125/83 O2 Sat by Pulse 99 98 Oximetry Medical Decision Making - Medical Decision Making 25-year-old male presented for altered mental status. Patient has a lactic acid of 8.8, patient is acutely intoxicated. Patient remains altered CT of brain is unremarkable x-ray shows no acute changes. Patient has moderate hyperglycemia. Patient be admitted. - Lab Data Result diagrams: 05/02/21 20:47 05/02/21 20:47 Lab Results 05/02/21 05/02/21 05/02/21 Range/Units 20:32 20:47 20:47 WBC 9.9 (3.8-10.6) k/uL RBC 5.01 (4.30-5.90) m/uL Hgb 15.3 (13.0-17.5) gm/dL Hct 46.4 (39.0-53.0) % MCV 92.6 (80.0-100.0) fL MCH 30.6 (25.0-35.0) pg MCHC 33.0 (31.0-37.0) g/dL RDW 12.2 (11.5-15.5) % Plt Count 285 (150-450) k/uL MPV 7.1 Neutrophils % 62 % Lymphocytes % 28 % Monocytes % 6 % Eosinophils % 1 % Basophils % 1 % Neutrophils # 6.2 (1.3-7.7) k/uL Lymphocytes # 2.8 (1.0-4.8) k/uL Monocytes # 0.6 (0-1.0) k/uL Eosinophils # 0.1 (0-0.7) k/uL Basophils # 0.1 (0-0.2) k/uL Sample Site ABG pH (7.35-7.45) ABG pCO2 (35-45) mmHg ABG pO2 (83-108) mmHg ABG HCO3 (21-25) mmol/L ABG Total CO2 (19-24) mmol/L ABG O2 Saturation (94-97) % ABG Base Excess mmol/L Frank Test FiO2 % Sodium 138 (137-145) mmol/L Potassium 3.7 (3.5-5.1) mmol/L Chloride 99 (98-107) mmol/L Carbon Dioxide 17 L (22-30) mmol/L Anion Gap 22 mmol/L BUN 21 H (9-20) mg/dL Creatinine 0.76 (0.66-1.25) mg/dL Est GFR (CKD-EPI)AfAm >90 (>60 ml/min/1.73 sqM) Est GFR (CKD-EPI)NonAf >90 (>60 ml/min/1.73 sqM) Glucose 355 H (74-99) mg/dL POC Glucose (mg/dL) 341 H (75-99) mg/dL POC Glu Incendiary Powder Mixer ID Clementina Alexander Plasma Lactic Acid Len (0.7-2.0) mmol/L Calcium 9.0 (8.4-10.2) mg/dL Magnesium 2.1 (1.6-2.3) mg/dL Total Bilirubin 0.5 (0.2-1.3) mg/dL AST 32 (17-59) U/L ALT 20 (4-49) U/L Alkaline Phosphatase 71 (38-126) U/L Troponin I (0.000-0.034) ng/mL Total Protein 7.3 (6.3-8.2) g/dL Albumin 4.8 (3.5-5.0) g/dL Amylase 40 (30-110) U/L Lipase 40 (23-300) U/L Urine Color Urine Appearance (Clear) Urine pH (5.0-8.0) Ur Specific Monument (1.001-1.035) Urine Protein (Negative) Urine Glucose (UA) (Negative) Urine Ketones (Negative) Urine Blood (Negative) Urine Nitrite (Negative) Urine Bilirubin (Negative) Urine Urobilinogen (<2.0) mg/dL Ur Leukocyte Esterase (Negative) Salicylates mg/dL Urine Opiates Screen (NotDetected) Ur Oxycodone Screen (NotDetected) Urine Methadone Screen (NotDetected) Ur Propoxyphene Screen (NotDetected) Acetaminophen ug/mL Ur Barbiturates Screen (NotDetected) U Tricyclic Antidepress (NotDetected) Ur Phencyclidine Scrn (NotDetected) Ur Amphetamines Screen (NotDetected) U Methamphetamines Scrn (NotDetected) U Benzodiazepines Scrn (NotDetected) Urine Cocaine Screen (NotDetected) U Marijuana (THC) Screen (NotDetected) Serum Alcohol 263 H* mg/dL Acetone, Qual (Negative) Coronavirus (PCR) (Not Detectd) 05/02/21 05/02/21 05/02/21 Range/Units 20:47 20:47 20:51 WBC (3.8-10.6) k/uL RBC (4.30-5.90) m/uL Hgb (13.0-17.5) gm/dL Hct (39.0-53.0) % MCV (80.0-100.0) fL MCH (25.0-35.0) pg MCHC (31.0-37.0) g/dL RDW (11.5-15.5) % Plt Count (150-450) k/uL MPV Neutrophils % % Lymphocytes % % Monocytes % % Eosinophils % % Basophils % % Neutrophils # (1.3-7.7) k/uL Lymphocytes # (1.0-4.8) k/uL Monocytes # (0-1.0) k/uL Eosinophils # (0-0.7) k/uL Basophils # (0-0.2) k/uL Sample Site RAD ABG pH 7.29 L (7.35-7.45) ABG pCO2 47 H (35-45) mmHg ABG pO2 270 H (83-108) mmHg ABG HCO3 23 (21-25) mmol/L ABG Total CO2 24 (19-24) mmol/L ABG O2 Saturation 99.7 H (94-97) % ABG Base Excess -4.0 mmol/L Frank Test Yes FiO2 100 % Sodium (137-145) mmol/L Potassium (3.5-5.1) mmol/L Chloride (98-107) mmol/L Carbon Dioxide (22-30) mmol/L Anion Gap mmol/L BUN (9-20) mg/dL Creatinine (0.66-1.25) mg/dL Est GFR (CKD-EPI)AfAm (>60 ml/min/1.73 sqM) Est GFR (CKD-EPI)NonAf (>60 ml/min/1.73 sqM) Glucose (74-99) mg/dL POC Glucose (mg/dL) (75-99) mg/dL POC Glu Incendiary Powder Mixer ID Plasma Lactic Acid Len 8.8 H* (0.7-2.0) mmol/L Calcium (8.4-10.2) mg/dL Magnesium (1.6-2.3) mg/dL Total Bilirubin (0.2-1.3) mg/dL AST (17-59) U/L ALT (4-49) U/L Alkaline Phosphatase (38-126) U/L Troponin I <0.012 (0.000-0.034) ng/mL Total Protein (6.3-8.2) g/dL Albumin (3.5-5.0) g/dL Amylase (30-110) U/L Lipase (23-300) U/L Urine Color Urine Appearance (Clear) Urine pH (5.0-8.0) Ur Specific [place] (1.001-1.035) Urine Protein (Negative) Urine Glucose (UA) (Negative) Urine Ketones (Negative) Urine Blood (Negative) Urine Nitrite (Negative) Urine Bilirubin (Negative) Urine Urobilinogen (<2.0) mg/dL Ur Leukocyte Esterase (Negative) Salicylates mg/dL Urine Opiates Screen (NotDetected) Ur Oxycodone Screen (NotDetected) Urine Methadone Screen (NotDetected) Ur Propoxyphene Screen (NotDetected) Acetaminophen ug/mL Ur Barbiturates Screen (NotDetected) U Tricyclic Antidepress (NotDetected) Ur Phencyclidine Scrn (NotDetected) Ur Amphetamines Screen (NotDetected) U Methamphetamines Scrn (NotDetected) U Benzodiazepines Scrn (NotDetected) Urine Cocaine Screen (NotDetected) U Marijuana (THC) Screen (NotDetected) Serum Alcohol mg/dL Acetone, Qual (Negative) Coronavirus (PCR) (Not Detectd) 05/02/21 05/02/21 05/02/21 Range/Units 21:28 21:28 21:30 WBC (3.8-10.6) k/uL RBC (4.30-5.90) m/uL Hgb (13.0-17.5) gm/dL Hct (39.0-53.0) % MCV (80.0-100.0) fL MCH (25.0-35.0) pg MCHC (31.0-37.0) g/dL RDW (11.5-15.5) % Plt Count (150-450) k/uL MPV Neutrophils % % Lymphocytes % % Monocytes % % Eosinophils % % Basophils % % Neutrophils # (1.3-7.7) k/uL Lymphocytes # (1.0-4.8) k/uL Monocytes # (0-1.0) k/uL Eosinophils # (0-0.7) k/uL Basophils # (0-0.2) k/uL Sample Site ABG pH (7.35-7.45) ABG pCO2 (35-45) mmHg ABG pO2 (83-108) mmHg ABG HCO3 (21-25) mmol/L ABG Total CO2 (19-24) mmol/L ABG O2 Saturation (94-97) % ABG Base Excess mmol/L Frank Test FiO2 % Sodium (137-145) mmol/L Potassium (3.5-5.1) mmol/L Chloride (98-107) mmol/L Carbon Dioxide (22-30) mmol/L Anion Gap mmol/L BUN (9-20) mg/dL Creatinine (0.66-1.25) mg/dL Est GFR (CKD-EPI)AfAm (>60 ml/min/1.73 sqM) Est GFR (CKD-EPI)NonAf (>60 ml/min/1.73 sqM) Glucose (74-99) mg/dL POC Glucose (mg/dL) (75-99) mg/dL POC Glu Incendiary Powder Mixer ID Plasma Lactic Acid Len (0.7-2.0) mmol/L Calcium (8.4-10.2) mg/dL Magnesium (1.6-2.3) mg/dL Total Bilirubin (0.2-1.3) mg/dL AST (17-59) U/L ALT (4-49) U/L Alkaline Phosphatase (38-126) U/L Troponin I (0.000-0.034) ng/mL Total Protein (6.3-8.2) g/dL Albumin (3.5-5.0) g/dL Amylase (30-110) U/L Lipase (23-300) U/L Urine Color Light Yellow Urine Appearance Clear (Clear) Urine pH 5.5 (5.0-8.0) Ur Specific Monument 1.027 (1.001-1.035) Urine Protein Negative (Negative) Urine Glucose (UA) 4+ H (Negative) Urine Ketones 1+ H (Negative) Urine Blood Negative (Negative) Urine Nitrite Negative (Negative) Urine Bilirubin Negative (Negative) Urine Urobilinogen <2.0 (<2.0) mg/dL Ur Leukocyte Esterase Negative (Negative) Salicylates <1.0 mg/dL Urine Opiates Screen Not Detected (NotDetected) Ur Oxycodone Screen Not Detected (NotDetected) Urine Methadone Screen Not Detected (NotDetected) Ur Propoxyphene Screen Not Detected (NotDetected) Acetaminophen <10.0 ug/mL Ur Barbiturates Screen Not Detected (NotDetected) U Tricyclic Antidepress Not Detected (NotDetected) Ur Phencyclidine Scrn Not Detected (NotDetected) Ur Amphetamines Screen Not Detected (NotDetected) U Methamphetamines Scrn Not Detected (NotDetected) U Benzodiazepines Scrn Not Detected (NotDetected) Urine Cocaine Screen Not Detected (NotDetected) U Marijuana (THC) Screen Detected H (NotDetected) Serum Alcohol mg/dL Acetone, Qual Negative (Negative) Coronavirus (PCR) (Not Detectd) 05/02/21 Range/Units 22:03 WBC (3.8-10.6) k/uL RBC (4.30-5.90) m/uL Hgb (13.0-17.5) gm/dL Hct (39.0-53.0) % MCV (80.0-100.0) fL MCH (25.0-35.0) pg MCHC (31.0-37.0) g/dL RDW (11.5-15.5) % Plt Count (150-450) k/uL MPV Neutrophils % % Lymphocytes % % Monocytes % % Eosinophils % % Basophils % % Neutrophils # (1.3-7.7) k/uL Lymphocytes # (1.0-4.8) k/uL Monocytes # (0-1.0) k/uL Eosinophils # (0-0.7) k/uL Basophils # (0-0.2) k/uL Sample Site ABG pH (7.35-7.45) ABG pCO2 (35-45) mmHg ABG pO2 (83-108) mmHg ABG HCO3 (21-25) mmol/L ABG Total CO2 (19-24) mmol/L ABG O2 Saturation (94-97) % ABG Base Excess mmol/L Frank Test FiO2 % Sodium (137-145) mmol/L Potassium (3.5-5.1) mmol/L Chloride (98-107) mmol/L Carbon Dioxide (22-30) mmol/L Anion Gap mmol/L BUN (9-20) mg/dL Creatinine (0.66-1.25) mg/dL Est GFR (CKD-EPI)AfAm (>60 ml/min/1.73 sqM) Est GFR (CKD-EPI)NonAf (>60 ml/min/1.73 sqM) Glucose (74-99) mg/dL POC Glucose (mg/dL) (75-99) mg/dL POC Glu Incendiary Powder Mixer ID Plasma Lactic Acid Len (0.7-2.0) mmol/L Calcium (8.4-10.2) mg/dL Magnesium (1.6-2.3) mg/dL Total Bilirubin (0.2-1.3) mg/dL AST (17-59) U/L ALT (4-49) U/L Alkaline Phosphatase (38-126) U/L Troponin I (0.000-0.034) ng/mL Total Protein (6.3-8.2) g/dL Albumin (3.5-5.0) g/dL Amylase (30-110) U/L Lipase (23-300) U/L Urine Color Urine Appearance (Clear) Urine pH (5.0-8.0) Ur Specific [place] (1.001-1.035) Urine Protein (Negative) Urine Glucose (UA) (Negative) Urine Ketones (Negative) Urine Blood (Negative) Urine Nitrite (Negative) Urine Bilirubin (Negative) Urine Urobilinogen (<2.0) mg/dL Ur Leukocyte Esterase (Negative) Salicylates mg/dL Urine Opiates Screen (NotDetected) Ur Oxycodone Screen (NotDetected) Urine Methadone Screen (NotDetected) Ur Propoxyphene Screen (NotDetected) Acetaminophen ug/mL Ur Barbiturates Screen (NotDetected) U Tricyclic Antidepress (NotDetected) Ur Phencyclidine Scrn (NotDetected) Ur Amphetamines Screen (NotDetected) U Methamphetamines Scrn (NotDetected) U Benzodiazepines Scrn (NotDetected) Urine Cocaine Screen (NotDetected) U Marijuana (THC) Screen (NotDetected) Serum Alcohol mg/dL Acetone, Qual (Negative) Coronavirus (PCR) Not Detected (Not Detectd) Disposition Clinical Impression: Alcohol intoxication, Altered mental status, Hyperglycemia, Nausea & vomiting Disposition: ADMITTED IP TO THIS HOSP Condition: Fair Referrals: Brown Valenzuela MD [Primary Care Provider] - 1-2 days
[2021-05-02 21:07] LABS: ALT 20 U/L (4-49); AST 32 U/L (17-59); African American GFR (CKD) >90 (>60 ml/min/1.73 sqM); Albumin 4.8 g/dL (3.5-5.0); Alkaline Phosphatase 71 U/L (38-126); Amylase 40 U/L (30-110); Anion Gap 22 mmol/L; Blood Urea Nitrogen 21 mg/dL (9-20); Carbon Dioxide 17 mmol/L (22-30); Chloride 99 mmol/L (98-107); Glucose 355 mg/dL (74-99); Lipase 40 U/L (23-300); Magnesium 2.1 mg/dL (1.6-2.3); Non-African American GFR(CKD) >90 (>60 ml/min/1.73 sqM); Potassium 3.7 mmol/L (3.5-5.1); Sodium 138 mmol/L (137-145); Total Bilirubin 0.5 mg/dL (0.2-1.3); Total Protein 7.3 g/dL (6.3-8.2)
[2021-05-02 21:25] LABS: Alcohol 263 mg/dL
--- NOTE | 2021-05-02 21:26 | XR ---
EXAMINATION TYPE: XR chest 1V DATE OF EXAM: 05/02/2021 COMPARISON: 12/19/2020 HISTORY: Short of breath TECHNIQUE: FINDINGS: Heart and mediastinum are normal. Lungs are clear. Diaphragm is normal. Bony thorax is intact. There are chest leads. IMPRESSION: Normal chest. No change.
[2021-05-02] MEDS ORDERED: ONDANSETRON 4 MG/2 ML VIAL IVP STA (21:34)
[2021-05-02 21:38] LABS: Acetaminophen <10.0 ug/mL; Salicylate <1.0 mg/dL
--- NOTE | 2021-05-02 21:43 | CT ---
EXAMINATION TYPE: CT brain wo con DATE OF EXAM: 05/02/2021 COMPARISON: 07/19/2018 HISTORY: ETOH. Weakness CT DLP: 1110.4 mGycm Automated exposure control for dose reduction was used. Ventricles have normal size. There is no mass effect nor midline shift. There is no sign of intracran ial hemorrhage. Calvarium is intact. Skull base is intact. There is normal aeration of the mastoid si nuses. IMPRESSION: Normal unenhanced head CT scan. No change.
[2021-05-02 21:51] LABS: Appearance,Urine Clear (Clear); Bilirubin,Urine Negative (Negative); Blood,Urine Negative (Negative); Color,Urine Light Yellow; Glucose,Urine (UA) 4+ (Negative); Ketones,Urine 1+ (Negative); Leukocyte Esterase,Urine Negative (Negative); Nitrite,Urine Negative (Negative); PH, Urine 5.5 (5.0-8.0); Protein,Urine Negative (Negative); Specific Gravity,Urine 1.027 (1.001-1.035); Urobilinogen,Urine <2.0 mg/dL (<2.0)
[2021-05-02] MEDS: SODIUM CHLORIDE 0.9% 1,000 ML IV SCH (22:01)
[2021-05-02 22:04] LABS: Amphetamine Screen,Urine Not Detected (NotDetected); Benzodiazepines Screen,Urine Not Detected (NotDetected); Cocaine Screen,Urine Not Detected (NotDetected); Methadone Screen, Urine Not Detected (NotDetected); Opiate Screen,Urine Not Detected (NotDetected); Phencyclidine Screen,Urine Not Detected (NotDetected); Tricyclic Antidepressant,Urine Not Detected (NotDetected)
[2021-05-02 22:05] LABS: Barbiturate Screen,Urine Not Detected (NotDetected); Oxycodone Screen, Urine Not Detected (NotDetected); Urn Cannabinoid Scrn Detected (NotDetected)
[2021-05-02] MEDS ORDERED: PANTOPRAZOLE 40 MG/10 ML VIAL IVP STA (22:49)
[2021-05-02] MEDS ORDERED: LORazepam 2 MG/ML INJ IV PRN ×3 (22:53)
[2021-05-02] MEDS ORDERED: NALOXONE 0.4 MG/ML 1 ML VIAL IV PRN (23:51)
[2021-05-03] MEDS: ONDANSETRON 4 MG/2 ML VIAL IVP PRN ×2 (00:12→08:08)
[2021-05-03] MEDS ORDERED: METOCLOPRAMIDE 5 MG/ML 2 ML VIAL IVP STA (00:36)
[2021-05-03 01:54] LABS: Glucose,Whole Blood 345 mg/dL (75-99)
[2021-05-03] MEDS: SODIUM CHLORIDE 0.9% 1,000 ML IV SCH ×3 (08:04→23:20)
[2021-05-03 08:07] LABS: Glucose,Whole Blood 266 mg/dL (75-99)
[2021-05-03] MEDS: INSULIN ASPART (NovoLOG) 100 UNIT/ML VIAL SQ SCH ×4 (08:08→20:34)
[2021-05-03] MEDS: PANTOPRAZOLE 40 MG/10 ML VIAL IV SCH (08:08)
[2021-05-03] MEDS: THIAMINE 100 MG TAB PO SCH ×2 (08:08→17:40)
[2021-05-03 12:41] LABS: Glucose,Whole Blood 180 mg/dL (75-99)
[2021-05-03 17:32] LABS: Glucose,Whole Blood 350 mg/dL (75-99)
[2021-05-03 20:11] LABS: Glucose,Whole Blood 266 mg/dL (75-99)
--- NOTE | 2021-05-04 00:28 | HP ---
HISTORY AND PHYSICAL CHIEF COMPLAINT: Mental status changes, lethargy. HISTORY OF PRESENT ILLNESS: This is another admission for this 25-year-old male with type 1 juvenile onset diabetic. He was brought to the emergency room very lethargic and delirious. This time he was not in DKA. He denied any headache, chest pain, abdominal pain, nausea, vomiting, fever, chills, injuries, etc. CT of the brain was normal. He denied drugs but it was thought that he may have been drinking alcohol to which he committed. REVIEW OF SYSTEMS: Unremarkable otherwise. He has no other symptoms. Past medical history, family history and personal and social histories are all otherwise unremarkable or unchanged. He does not follow up in the office. He is not known to be allergic to anything. When last seen, he was taking Levemir 25 units once a day and NovoLog 10 units before breakfast and lunch and dinner and as well as 6 HS. He used to smoke. PHYSICAL EXAMINATION: Blood pressure 106/56 with a pulse of 110, respirations 16 and he is afebrile. In general, he appeared to be very lethargic. Skin color was normal and he was not particularly dehydrated. Head, ears, eyes, nose, mouth and throat were normal. Pupils equal round. Gaze is conjugate. Neck was normal. Chest is clear. Cardiac exam demonstrates sinus rhythm with no murmurs or extra sounds. The abdomen is flat, soft and nontender. Extremities: Normal. Neurologically, other than being lethargic, he is intact and arousable. IMPRESSION: 1. Mental status changes with lethargy, etiology unknown. 2. History of depression and suicidal personality. 3. Type 1 insulin-dependent diabetes mellitus. PLAN: 1. Bedrest. 2. IV fluids. 3. Drug screen. 4. Monitor vital signs, mental status and blood sugars. MMODL / IJN: [id number] /
[2021-05-04] MEDS: SODIUM CHLORIDE 0.9% 1,000 ML IV SCH (05:55)
[2021-05-04] MEDS ORDERED: INSULIN DETEMIR (LEVEMIR) 100 UNIT/ML SYR SQ SCH (07:00)
[2021-05-04 07:32] LABS: Glucose,Whole Blood 265 mg/dL (75-99)
[2021-05-04] MEDS: THIAMINE 100 MG TAB PO SCH (07:45)
[2021-05-04] MEDS: PANTOPRAZOLE 40 MG/10 ML VIAL IV SCH (07:46)
[2021-05-04 08:18] VITALS: BP 113/72; PULSE 88; RESP 18; TEMP 98.1
[2021-05-04] MEDS: INSULIN ASPART (NovoLOG) 100 UNIT/ML VIAL SQ SCH ×2 (08:34→13:09)
[2021-05-04 12:27] LABS: Glucose,Whole Blood 200 mg/dL (75-99)
[2021-05-05] MEDS ORDERED: PANTOPRAZOLE 40 MG TABLET PO SCH (07:30)
--- NOTE | 2021-05-05 18:14 | PN ---
PROGRESS NOTE DATE OF SERVICE: 05/03/2021. CHIEF COMPLAINT: Mental status changes, uncontrolled diabetes and acute alcohol intoxication. HISTORY OF PRESENT ILLNESS: This gentleman started to become a little bit more awake and alert. He has no chest pain, shortness of breath, headache, neurologic deficits, etc. PHYSICAL EXAM: The pupils equal, round, reactive and gaze conjugate. Chest is clear. Cardiac exam is normal. Abdomen is soft and flat. IMPRESSION: Mental status changes, probably secondary to acute alcohol intoxication. PLAN: Slowly increase activity and diet. MMODL / IJN: [id number] /
--- NOTE | 2021-05-05 18:24 | DS ---
DISCHARGE SUMMARY DATE OF SERVICE: 05/04/2021 CHIEF COMPLAINT: Mental status changes and acute alcohol intoxication. HISTORY OF PRESENT ILLNESS AND PHYSICAL EXAMINATION: Details of this man's history and physical can be found in the initial workup. LABORATORY STUDIES: While he was in the hospital, he had laboratory studies, details of which can be found in the laboratory section of his chart. COURSE IN THE HOSPITAL: After admission, he was placed on bedrest and started on intravenous fluids and slowly became awake. He was improving and it was thought that he could probably be discharged, but he signed out AGAINST MEDICAL ADVICE. FINAL DIAGNOSES: 1. Mental status changes. 2. Acute alcohol intoxication. 3. Uncontrolled juvenile type 1 insulin-dependent diabetic. 4. Depression. OPERATIONS: None. CONSULTATION: None. He is improved. MMBIANCA / ALDEN: [id number] /
== END 2021-05-04 14:35 | disposition left against medical advice (07) ==
LOC: EC 20:13 → 1SOBS 23:45 → 6NMEDSUR 05-03 11:03
PROVIDERS: ADMIT Family Medicine; ATTEND Family Medicine
DX: F10.129 Alcohol abuse with intoxication, unspecified (principal); R41.82 Altered mental status, unspecified; E10.65 Type 1 diabetes mellitus with hyperglycemia; E10.42 Type 1 diabetes mellitus with diabetic polyneuropathy; F32.A Depression, unspecified; F41.9 Anxiety disorder, unspecified; J45.909 Unspecified asthma, uncomplicated; L30.9 Dermatitis, unspecified; Z53.29 Procedure and treatment not carried out because of patient's decision for other reasons; Z20.822 Contact with and (suspected) exposure to COVID-19; Z79.4 Long term (current) use of insulin; Z87.891 Personal history of nicotine dependence; Z91.51 Personal history of suicidal behavior; Z98.890 Other specified postprocedural states; Z82.3 Family history of stroke; Z82.49 Family history of ischemic heart disease and other diseases of the circulatory system; Z83.49 Family history of other endocrine, nutritional and metabolic diseases
CPT/HCPCS: 96376 ×2; 96361 ×2; 96374; 96375 ×2; 99285; 36415; 36600; 93005; 80053; 82150; 82805; 82009; 83605 ×2; 83690; 83735; 84484; 85025; 81003; 80306; 80143; 87635; 80179; 71045; 70450; G0378 ×3; G0480; J2765; J2405 ×2; C9113 ×3; 80320

== ENCOUNTER 2021-06-29 08:11 | Inpatient (IN) | payer OTHER ==
[2021-06-29 08:17] LABS: Glucose,Whole Blood >600 mg/dL (75-99)
[2021-06-29] MEDS ORDERED: SODIUM CHLORIDE 0.9% 1,000 ML IV ONE (08:20)
[2021-06-29] MEDS ORDERED: INSULIN REGULAR BOLUS (FROM DRIP BAG) IV ONE (08:20)
[2021-06-29] MEDS ORDERED: ONDANSETRON 4 MG/2 ML VIAL IVP STA (08:24)
[2021-06-29] MEDS ORDERED: PANTOPRAZOLE 40 MG/10 ML VIAL IVP STA (08:24)
--- NOTE | 2021-06-29 08:32 | ED ---
General Adult HPI - General Chief complaint: Nausea/Vomiting/Diarrhea Stated complaint: N&V Time Seen by Provider: 06/29/21 08:14 Source: patient, EMS, RN notes reviewed Mode of arrival: EMS Limitations: no limitations - History of Present Illness Initial comments: Patient is a pleasant 25-year-old male presenting to the emergency department with nausea vomiting. Onset of symptoms was this morning. Patient last took his insulin yesterday. Patient does have history of similar symptoms previously associated with diabetes. Blood sugar read high this morning. Patient arrives via EMS. Patient denies abdominal pain or fever. No respiratory symptoms. No diarrhea. - Related Data Home Medications Medication Instructions Recorded Confirmed Insulin Detemir (Levemir) [Levemir] 25 unit SQ DAILY 08/27/20 05/02/21 Albuterol Sulfate [Proair Hfa] 2 puff INHALATION RT-QID PRN 05/02/21 05/02/21 Insulin Aspart [NovoLOG] 10 units SQ ACHS 05/02/21 05/02/21 Sildenafil Citrate [Sildenafil] 20 - 100 mg PO DAILY PRN 05/02/21 05/02/21 Allergies Allergy/AdvReac Type Severity Reaction Status Date / Time No Known Allergies Allergy Verified 05/03/21 17:13 Review of Systems ROS Statement: Those systems with pertinent positive or pertinent negative responses have been documented in the HPI. ROS Other: All systems not noted in ROS Statement are negative. Constitutional: Denies: fever Eyes: Denies: eye pain ENT: Denies: ear pain Respiratory: Denies: cough Cardiovascular: Denies: chest pain Endocrine: Denies: fatigue Gastrointestinal: Reports: as per HPI, nausea, vomiting Genitourinary: Denies: dysuria Musculoskeletal: Denies: back pain Skin: Denies: rash Neurological: Denies: weakness Past Medical History Past Medical History: Asthma, Diabetes Mellitus, Skin Disorder Additional Past Medical History / Comment(s): IDDM type I, neuropathy bilateral feet, DKA, eczema. History of multiple psychiatric hospitalizations or suicide attempts. History of Any Multi-Drug Resistant Organisms: None Reported Past Surgical History: Adenoidectomy Additional Past Surgical History / Comment(s): 2002 Past Anesthesia/Blood Transfusion Reactions: No Reported Reaction Past Psychological History: Anxiety, Depression Smoking Status: Current every day smoker Past Alcohol Use History: None Reported Past Drug Use History: Marijuana - Past Family History Mother Family Medical History: CVA/TIA Additional Family Medical History / Comment(s): TIA Father Family Medical History: Hyperlipidemia, Hypertension Additional Family Medical History / Comment(s): . General Exam Limitations: no limitations General appearance: alert, in no apparent distress Head exam: Present: normocephalic Eye exam: Present: normal appearance ENT exam: Present: normal oropharynx Neck exam: Present: normal inspection Respiratory exam: Present: normal lung sounds bilaterally Cardiovascular Exam: Present: regular rate, normal rhythm GI/Abdominal exam: Present: soft, normal bowel sounds. Absent: distended, tenderness, guarding, rebound, rigid, pulsatile mass Extremities exam: Present: normal inspection. Absent: pedal edema, calf tenderness Neurological exam: Present: alert Psychiatric exam: Present: normal affect, normal mood Skin exam: Present: normal color Course Vital Signs 06/29/21 06/29/21 08:13 09:21 Temperature 97.8 F Pulse Rate 70 81 Respiratory 18 18 Rate Blood Pressure 129/89 122/88 O2 Sat by Pulse 97 97 Oximetry - Reevaluation(s) Reevaluation #1: 06/29/21 09:24 Patient evaluated and resting comfortably in bed. Patient updated on results and plan. Dr. Valenzuela has been paged for admission of his patient. Patient is on insulin drip. 06/29/21 09:55 Case was discussed with Dr. Valenzuela, who will admit his patient. EKG Findings - EKG Comments: EKG Findings:: Normal sinus rhythm rate 67. IA 170. QRS 92. QT 412. QTC 435. Normal axis. Normal QRS. No acute ST change. Medical Decision Making - Lab Data Result diagrams: 06/29/21 08:30 06/29/21 08:30 Lab Results 06/29/21 06/29/21 06/29/21 Range/Units 08:15 08:30 08:30 WBC 8.6 (3.8-10.6) k/uL RBC 4.52 (4.30-5.90) m/uL Hgb 14.9 (13.0-17.5) gm/dL Hct 44.3 (39.0-53.0) % MCV 98.0 D (80.0-100.0) fL MCH 32.9 (25.0-35.0) pg MCHC 33.5 (31.0-37.0) g/dL RDW 13.1 (11.5-15.5) % Plt Count 286 (150-450) k/uL MPV 7.4 Neutrophils % 73 % Lymphocytes % 17 % Monocytes % 5 % Eosinophils % 3 % Basophils % 1 % Neutrophils # 6.3 (1.3-7.7) k/uL Lymphocytes # 1.5 (1.0-4.8) k/uL Monocytes # 0.5 (0-1.0) k/uL Eosinophils # 0.3 (0-0.7) k/uL Basophils # 0.1 (0-0.2) k/uL Sodium (137-145) mmol/L Potassium (3.5-5.1) mmol/L Chloride (98-107) mmol/L Carbon Dioxide (22-30) mmol/L Anion Gap mmol/L BUN (9-20) mg/dL Creatinine (0.66-1.25) mg/dL Est GFR (CKD-EPI)AfAm (>60 ml/min/1.73 sqM) Est GFR (CKD-EPI)NonAf (>60 ml/min/1.73 sqM) Glucose (74-99) mg/dL POC Glucose (mg/dL) >600 H (75-99) mg/dL POC Glu Nuclear Fuel Processing Technician ID Kourtney Gamez Calcium (8.4-10.2) mg/dL Total Bilirubin (0.2-1.3) mg/dL AST (17-59) U/L ALT (4-49) U/L Alkaline Phosphatase (38-126) U/L Total Protein (6.3-8.2) g/dL Albumin (3.5-5.0) g/dL Amylase (30-110) U/L Lipase (23-300) U/L Urine Color Colorless Urine Appearance Clear (Clear) Urine pH 6.0 (5.0-8.0) Ur Specific [place] 1.029 (1.001-1.035) Urine Protein Negative (Negative) Urine Glucose (UA) 4+ H (Negative) Urine Ketones Negative (Negative) Urine Blood Negative (Negative) Urine Nitrite Negative (Negative) Urine Bilirubin Negative (Negative) Urine Urobilinogen <2.0 (<2.0) mg/dL Ur Leukocyte Esterase Negative (Negative) Acetone, Qual (Negative) 06/29/21 Range/Units 08:30 WBC (3.8-10.6) k/uL RBC (4.30-5.90) m/uL Hgb (13.0-17.5) gm/dL Hct (39.0-53.0) % MCV (80.0-100.0) fL MCH (25.0-35.0) pg MCHC (31.0-37.0) g/dL RDW (11.5-15.5) % Plt Count (150-450) k/uL MPV Neutrophils % % Lymphocytes % % Monocytes % % Eosinophils % % Basophils % % Neutrophils # (1.3-7.7) k/uL Lymphocytes # (1.0-4.8) k/uL Monocytes # (0-1.0) k/uL Eosinophils # (0-0.7) k/uL Basophils # (0-0.2) k/uL Sodium 138 (137-145) mmol/L Potassium 4.8 (3.5-5.1) mmol/L Chloride 102 (98-107) mmol/L Carbon Dioxide 28 (22-30) mmol/L Anion Gap 8 mmol/L BUN 23 H (9-20) mg/dL Creatinine 0.86 (0.66-1.25) mg/dL Est GFR (CKD-EPI)AfAm >90 (>60 ml/min/1.73 sqM) Est GFR (CKD-EPI)NonAf >90 (>60 ml/min/1.73 sqM) Glucose 783 H* (74-99) mg/dL POC Glucose (mg/dL) (75-99) mg/dL POC Glu Nuclear Fuel Processing Technician ID Calcium 9.2 (8.4-10.2) mg/dL Total Bilirubin 0.5 (0.2-1.3) mg/dL AST 19 (17-59) U/L ALT 20 (4-49) U/L Alkaline Phosphatase 92 (38-126) U/L Total Protein 7.2 (6.3-8.2) g/dL Albumin 4.5 (3.5-5.0) g/dL Amylase 80 (30-110) U/L Lipase 475 H (23-300) U/L Urine Color Urine Appearance (Clear) Urine pH (5.0-8.0) Ur Specific [place] (1.001-1.035) Urine Protein (Negative) Urine Glucose (UA) (Negative) Urine Ketones (Negative) Urine Blood (Negative) Urine Nitrite (Negative) Urine Bilirubin (Negative) Urine Urobilinogen (<2.0) mg/dL Ur Leukocyte Esterase (Negative) Acetone, Qual Positive (Negative) Critical Care Time Critical Care Time: Yes Total Critical Care Time: 31 Disposition Clinical Impression: DKA (diabetic ketoacidoses) Disposition: ADMITTED IP TO THIS [facility] Condition: Serious Is patient prescribed a controlled substance at d/c from ED?: No Decision Time: 09:25
[2021-06-29 08:53] LABS: Basophils # (A) 0.1 k/uL (0-0.2); Basophils % (A) 1 %; Eosinophils # (A) 0.3 k/uL (0-0.7); Eosinophils % (A) 3 %; HCT 44.3 % (39.0-53.0); HGB 14.9 gm/dL (13.0-17.5); Lymphocytes # (A) 1.5 k/uL (1.0-4.8); Lymphocytes % (A) 17 %; MCH 32.9 pg (25.0-35.0); MCHC 33.5 g/dL (31.0-37.0); Mean Platelet Volume 7.4; Monocytes # (A) 0.5 k/uL (0-1.0); Monocytes % (A) 5 %; Neutrophils # (A) 6.3 k/uL (1.3-7.7); Neutrophils % (A) 73 %; Platelet Count 286 k/uL (150-450); RBC 4.52 m/uL (4.30-5.90); RDW 13.1 % (11.5-15.5); WBC 8.6 k/uL (3.8-10.6)
[2021-06-29 08:58] LABS: Appearance,Urine Clear (Clear); Bilirubin,Urine Negative (Negative); Blood,Urine Negative (Negative); Color,Urine Colorless; Glucose,Urine (UA) 4+ (Negative); Ketones,Urine Negative (Negative); Leukocyte Esterase,Urine Negative (Negative); Nitrite,Urine Negative (Negative); Protein,Urine Negative (Negative); Specific Gravity,Urine 1.029 (1.001-1.035); Urobilinogen,Urine <2.0 mg/dL (<2.0)
[2021-06-29 08:59] LABS: ALT 20 U/L (4-49); AST 19 U/L (17-59); African American GFR (CKD) >90 (>60 ml/min/1.73 sqM); Albumin 4.5 g/dL (3.5-5.0); Alkaline Phosphatase 92 U/L (38-126); Amylase 80 U/L (30-110); Anion Gap 8 mmol/L; Blood Urea Nitrogen 23 mg/dL (9-20); Calcium 9.2 mg/dL (8.4-10.2); Carbon Dioxide 28 mmol/L (22-30); Chloride 102 mmol/L (98-107); Lipase 475 U/L (23-300); Non-African American GFR(CKD) >90 (>60 ml/min/1.73 sqM); Potassium 4.8 mmol/L (3.5-5.1); Sodium 138 mmol/L (137-145); Total Bilirubin 0.5 mg/dL (0.2-1.3); Total Protein 7.2 g/dL (6.3-8.2)
[2021-06-29] MEDS ORDERED: INSULIN REGULAR 100 UNIT in SODIUM CHLORIDE 0.9% 100 ML IV SCH (09:00)
[2021-06-29 09:10] LABS: Glucose 783 mg/dL (74-99)
[2021-06-29] MEDS ORDERED: NALOXONE 0.4 MG/ML 1 ML VIAL IV PRN (09:26)
[2021-06-29] MEDS ORDERED: ONDANSETRON 4 MG/2 ML VIAL IVP PRN (09:26)
[2021-06-29 10:14] LABS: Glucose,Whole Blood 435 mg/dL (75-99)
[2021-06-29 11:15] LABS: Glucose,Whole Blood 293 mg/dL (75-99)
[2021-06-29] MEDS ORDERED: D5-0.45% NACL WITH KCL 20MEQ/L 1,000 ML IV SCH (12:00)
[2021-06-29 12:10] LABS: African American GFR (CKD) >90 (>60 ml/min/1.73 sqM); Anion Gap 9 mmol/L; Blood Urea Nitrogen 20 mg/dL (9-20); Carbon Dioxide 27 mmol/L (22-30); Chloride 107 mmol/L (98-107); Glucose 309 mg/dL (74-99); Non-African American GFR(CKD) >90 (>60 ml/min/1.73 sqM); Potassium 3.7 mmol/L (3.5-5.1); Sodium 143 mmol/L (137-145)
[2021-06-29 12:19] LABS: Glucose,Whole Blood 198 mg/dL (75-99)
[2021-06-29] MEDS: SODIUM CHLORIDE 0.9% 1,000 ML IV SCH ×2 (13:50→13:51)
[2021-06-29] MEDS ORDERED: DEXTROSE 5%-0.45% NACL 1,000 ML IV SCH (14:00)
[2021-06-29] MEDS ORDERED: INSULIN DETEMIR (LEVEMIR) 100 UNIT/ML SYR SQ SCH ×2 (14:00→15:15)
[2021-06-29 14:03] LABS: Glucose,Whole Blood 161 mg/dL (75-99)
[2021-06-29 14:06] VITALS: RESP 18
[2021-06-29] MEDS ORDERED: IBUPROFEN 800 MG TAB PO PRN (15:12)
[2021-06-29] MEDS ORDERED: GABAPENTIN 300 MG CAP PO PRN (15:12)
[2021-06-29 15:36] VITALS: BP 108/66; PULSE 89; TEMP 97.5
[2021-06-29 16:23] LABS: African American GFR (CKD) >90 (>60 ml/min/1.73 sqM); Anion Gap 8 mmol/L; Blood Urea Nitrogen 19 mg/dL (9-20); Carbon Dioxide 28 mmol/L (22-30); Chloride 100 mmol/L (98-107); Glucose 346 mg/dL (74-99); Non-African American GFR(CKD) >90 (>60 ml/min/1.73 sqM); Potassium 4.2 mmol/L (3.5-5.1); Sodium 136 mmol/L (137-145)
[2021-06-29 16:25] LABS: Glucose,Whole Blood 327 mg/dL (75-99)
[2021-06-29] MEDS ORDERED: INSULIN ASPART (NovoLOG) 100 UNIT/ML VIAL SQ SCH ×3 (17:30→21:00)
--- NOTE | 2021-06-29 18:20 | HP ---
HISTORY AND PHYSICAL CHIEF COMPLAINT: Dehydration, nausea, vomiting and DKA. HISTORY OF PRESENT ILLNESS: This is another admission for this 25-year-old noncompliant type 1 insulin-dependent diabetic. This is another admission similar to all of those in the past, where he just stops taking his insulin, probably due to depression more than anything else. His blood sugar was over 700. REVIEW OF SYSTEMS: He is somewhat lethargic, but he is not having any difficulty with chest pain, shortness of breath, cough, abdominal pain, etc. Past medical history, family history, and personal and social histories are otherwise unremarkable and unchanged. PHYSICAL EXAMINATION: Blood pressure is 112/55 with a pulse of 116, respirations of 36. He is afebrile. In general he appeared to be slender, dehydrated and in no acute distress. Head, ears, eyes, nose, mouth and throat were normal except for dry mucous membranes. Chest was clear. Cardiac exam demonstrated tachycardia. The abdomen was flat, soft and nontender. Extremities were normal. Neurological he is intact. IMPRESSION: 1. Diabetic ketoacidosis. 2. Type 1 insulin-dependent diabetes mellitus. 3. Depression. PLAN: DKA protocol. MMODL / IJN: [id number] /
[2021-06-30] MEDS ORDERED: PANTOPRAZOLE 40 MG/10 ML VIAL IV SCH (09:00)
--- NOTE | 2021-06-30 17:37 | DS ---
DISCHARGE SUMMARY DATE OF ADMISSION: 06/29/2021 DATE OF DISCHARGE: 06/29/2021 CHIEF COMPLAINT: DKA. HISTORY OF PRESENT ILLNESS AND PHYSICAL EXAMINATION: Details of this man's history and physical can be found in the initial workup. COURSE IN THE HOSPITAL: After admission he was placed on bedrest, started on DKA protocol. Blood sugars were coming down and he had no problems with chills, fever, shortness of breath, nausea, vomiting, etc. He was awaiting a bed upstairs and then signed out AGAINST MEDICAL ADVICE. FINAL DIAGNOSIS: 1. Diabetic ketoacidosis. 2. Noncompliant type 1 insulin-dependent diabetic. 3. Depression. OPERATIONS: None. CONSULTATIONS: None. He was not improved. He signed out AMA. GRACE / ALDEN: [id number] /
== END 2021-06-29 18:46 | disposition left against medical advice (07) | DRG 639 ==
LOC: EC 08:11 → 3SCARD 09:38
PROVIDERS: ADMIT Family Medicine; ATTEND Family Medicine
DX: E10.10 Type 1 diabetes mellitus with ketoacidosis without coma (principal); E86.0 Dehydration; F17.200 Nicotine dependence, unspecified, uncomplicated; F32.A Depression, unspecified; J45.909 Unspecified asthma, uncomplicated; Z53.29 Procedure and treatment not carried out because of patient's decision for other reasons; Z20.822 Contact with and (suspected) exposure to COVID-19; Z79.4 Long term (current) use of insulin; Z82.3 Family history of stroke; Z82.49 Family history of ischemic heart disease and other diseases of the circulatory system; Z91.19 Patient's noncompliance with other medical treatment and regimen
CPT/HCPCS: 36415; 80051; 80053; 81003; 82009; 82150; 82565; 82947; 83690; 84100; 84520; 85025; 87635; 93005; 96374; 96375; 99291

== ENCOUNTER 2021-07-09 18:02 | Inpatient (IN) | payer MEDICAID ==
[2021-07-09] MEDS ORDERED: IBUPROFEN 800 MG TAB PO PRN (19:37)
[2021-07-09] MEDS ORDERED: GABAPENTIN 300 MG CAP PO PRN (19:37)
[2021-07-09] MEDS ORDERED: LORazepam 1 MG TAB PO PRN (19:44)
[2021-07-09] MEDS ORDERED: ACETAMINOPHEN TAB 325 MG TAB PO PRN (19:44)
[2021-07-09] MEDS ORDERED: HALOPERIDOL LACTATE 5 MG/ML 1 ML VIAL IM PRN (19:44)
[2021-07-09] MEDS ORDERED: MAGNESIUM HYDROXIDE 2,400 MG/10 ML CUP PO PRN (19:44)
[2021-07-09] MEDS ORDERED: MAG HYDROX/AL HYDROX/SIMETH 30 ML CUP PO PRN (19:44)
[2021-07-09] MEDS ORDERED: LORazepam 2 MG/ML INJ IM PRN ×2 (20:03→22:41)
[2021-07-09] MEDS ORDERED: haloperidoL 5 MG TAB PO PRN (20:03)
[2021-07-09 20:25] LABS: Glucose,Whole Blood 91 mg/dL (75-99)
[2021-07-09] MEDS: INSULIN ASPART (NovoLOG) 100 UNIT/ML VIAL SQ SCH (20:27)
[2021-07-09] MEDS ORDERED: INSULIN ASPART (NovoLOG) 100 UNIT/ML VIAL SQ SCH (21:00)
[2021-07-09 23:35] VITALS: BP 132/84; PULSE 87; RESP 18; TEMP 97.8
--- NOTE | 2021-07-10 02:52 | P.MHFACE ---
Face to Face Restrain/Seclus - Evaluation Patient's Immediate Situation: Endangers self safety, Endangers others' safety Patient's Reaction to the Intervention: Appropriate, Calm, Relaxed Need to Continue or Terminate Restraint or Seclusion: Terminate Need to Continue or Terminate Restraint/Seclusion - Comment: Notified of the restraints at 2337. RN stated that the restraints were placed on the patient at 2215 after he was found tearing off the room of the unit in search of a piece of metal to harm himself. The restraints had been discontinued at the time of my evaluation. The patient had been given medications and he was resting comfortably in bed. Wrists and ankles were assessed and were free of injury.
[2021-07-10] MEDS: INSULIN DETEMIR (LEVEMIR) 100 UNIT/ML SYR SQ SCH (08:08)
[2021-07-10] MEDS: INSULIN ASPART (NovoLOG) 100 UNIT/ML VIAL SQ SCH ×8 (08:09→22:57)
[2021-07-10 08:35] LABS: Glucose,Whole Blood 320 mg/dL (75-99)
[2021-07-10] MEDS: ERGOCALCIFEROL 1,250 MCG (50,000 IU) CAPSULE PO SCH ×2 (08:38→08:41)
--- NOTE | 2021-07-10 10:16 | P.HP ---
Psychiatric H&P - . H&P Date: 07/10/21 History & Physical: Allergies Allergy/AdvReac Type Severity Reaction Status Date / Time No Known Allergies Allergy Verified 07/07/21 07:07 Vital Signs Temp 97.8 F 07/09/21 22:15 Pulse 87 07/09/21 22:15 Resp 18 07/09/21 22:15 BP 132/84 07/09/21 22:15 Pulse Ox 99 07/09/21 19:16 Intake & Output 07/09/21 07/10/21 07/10/21 18:59 06:59 18:59 Weight 75.8 kg Laboratory Last Values POC Glucose (mg/dL) 320 mg/dL (75-99) H 07/10/21 08:08 POC Glu Channel Account Manager Hina Zhang 07/10/21 08:08 07/10/21 10:07 Identification: Patient is a 25 years old single white male living with his brother with a hx of DM type 1 and hx of depression and anxiety with multiple admissions in the past History of present illness: Patient has a significant history of multiple mental health admissions in the past. He is an insulin-dependent diabetic and has had multiple overdoses in the past and suicide attempts. He apparently came to the emergency room on 07/07 for an allegedly insulin overdose. According to ER report patient claimed that he used "50 units" on himself of insulin after an apparent argument. Patient's blood sugars were between 50 and 60 and apparently was diaphoretic and was uncooperative in the ER. Patient was admitted medically and monitored and apparently had to have restraints on on 07/08 for apparently hitting himself and staff on the table. Patient was seen by director underwriter sales for psychiatric consultation on 07/09 on the medical floors. He claimed that he has been under a lot of stress recently and took a "unnecessary action" on himself. He claims that he had a suicide attempt where he gave himself supposedly 10 units of insulin after getting in a fight with his girlfriend. He states that his girlfriend was drinking and he states that he "overreacted". He states that after giving himself the dose he went to go sit by the "convention center" when the sort operations supervisor was called on him. He states that his boss also recently and he was suspecting that he was using a lot of drugs. 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 He states that he does smoke weed significantly at times which causes him to be paranoid. He claims that his sleep has been on and off. He has not been taking any psychiatric medications. Patient was transferred to the mental health unit last night and apparently became agitated and punched a hole through the ceiling tiles and grabbed a metal object attempting to harm himself and endorsed suicidal thoughts. Patient required Haldol and Ativan prn IM and also restraints. Patient was then placed on a one-to-one sitter and seen this morning by director underwriter sales once again. Patient was difficult to awaken and claimed that he is feeling "very tired". He answered only some questions. He had a soft tone of voice and had poor hygiene and grooming. He states that he was feeling "very angry last night" and states that he was feeling suicidal however is denying that at this time that he is feeling suicidal today. He continues to be unpredictable and endorsing depression and anxiety. He denies any homicidal ideations intent or plan. He denies any auditory or visual hallucinations. Previous psychiatric history/drug and alcohol abuse: Patient has multiple psychiatric hospitalizations. He does not take any medication or see a psychiatrist/therapist on a regular basis. He takes trazodone on a when necessary basis to help him sleep. He said he has been smoking pot since age 13 or 14 and smokes up to quarter ounce per day. He said his last smoke was about a month ago. Denies smoking cigarettes or drinking alcohol. He refused to provide information regarding other substance abuse stating that it is i rrelevant for today. But apparently he was abusing Xanax in the past and was in group home once for third degree fraud. Apparently he was going from store to store to get his Xanax. His last mental health admission was in November 2020. Social hx: He said he was raised fairly well by his parents and was not abused. He said he quit school in the 11th grade and went to work. He said he did not have any trouble in learning and did not have to repeat any classes or grades. He was suspended "a few times" and refused to provide the reasons for it. He was in alternate school and was in juvenile court system for 2 years. He denies any pending legal issues. He stays with his brother in a house. 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 Family history: He denies. Previous medical history: He has diabetes and is on insulin. He said he has 2 broken bones on his right hand. He has some abrasions on his right knuckles from punching the treatment. He did not have any surgery. MENTAL STATUS EXAM: General Appearance: Patient appears to be thin, longer hair, stated age is alert, uncooperative. Patient appears to have poor hygiene and grooming wearing hospital gown with fair eye contact. Behavior: Patient is calmly lying in bed, fairly lethargic. Speech: Patient's speech is fluent and nonpressured. Mood/Affect: Patient reports their mood is "depressed and anxious", affect is congruent Suicidality/Homicidality: Patient denies having any suicidal or homicidal ideation intent or plan. Perceptions: Patient denies any visual hallucinations and denies any auditory hallucinations Though content/process: [place]. Superficial/vague. Minimal insight. Memory and concentration: AOX3, grossly intact for the purposes of this session. 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 Weakness is that patient [has poor judgment and is impulsive] INTELLECT: [average] PLAN: -Patient is admitted under voluntary status to MHU for stabilization of psychiatric symptoms and safety. Patient has not signed medication consent and is placed in patient's chart. -Medications : Increased lithium 300 mg twice a day for mood adjunct/suicidal thoughts, Prozac 20 mg daily for mood/anxiety. continue with trazodone 50 mg daily at bedtime when necessary for sleep. -Continue 1:1 sitter for safety -Ativan and Haldol PRN for agitation/aggression -Patient was counselled on substance abuse and desired to cut back on use -Patient was informed of the risks, benefits and side effects of the medication and patient verbally consented to taking the medications. Patient signed med consent form and was placed in chart. -Internal Medicine consult to perform medical evaluation and physical. -NRT - not needed as patient does not smoke -SW on board for discharge planning. Encourage patient to participate in groups to work on coping skills. 07/10/21 10:14 07/10/21 10:15
[2021-07-10] MEDS: FLUoxetine HCL 20 MG CAP PO SCH (11:15)
[2021-07-10] MEDS: LITHIUM CARBONATE 150 MG CAP PO SCH ×2 (11:15→20:42)
[2021-07-10 12:50] LABS: Glucose,Whole Blood 52 mg/dL (75-99)
[2021-07-10 13:15] LABS: Glucose,Whole Blood 49 mg/dL (75-99)
[2021-07-10 13:32] LABS: Glucose,Whole Blood 184 mg/dL (75-99)
--- NOTE | 2021-07-10 15:46 | CONS ---
CONSULTATION DATE OF SERVICE: 07/10/2021 REASON FOR CONSULTATION: Advice regarding hypoglycemia and other multiple medical issues, requested by Psychiatry. HISTORY OF PRESENT ILLNESS: This 25-year-old gentleman with a past medical history of diabetes mellitus, type 2, being followed by Dr. Valenzuela in the outpatient setting, was admitted with intentional insulin overdose as well as severe hypoglycemia and suicidal ideations. The patient has been transferred to the medical floor at this time. Blood sugars are running low. The morning blood sugar was 320, currently 52 and 49. No chest pain. No palpitations. PAST MEDICAL HISTORY: Diabetes mellitus, type 1. Suicidal ideation. HOME MEDICATIONS: Reviewed. They include NovoLog, Motrin and Levemir. Doses and other medications are reviewed. ALLERGIES: NONE. FAMILY HISTORY: History of CVA, TIA. SOCIAL HISTORY: Vaping. REVIEW OF SYSTEMS: Fourteen-point review of systems negative except as mentioned previously. PHYSICAL EXAMINATION: Pulse 87, blood pressure 130/84, respiration 18. CHEST: Clear to auscultation. CARDIOVASCULAR: S1, S2 muffled. ABDOMEN: Soft, nontender. NERVOUS SYSTEM: No focal deficit. SKIN: No ulcer, rash, bleeding. LABS: Reviewed. ASSESSMENT: 1. Diabetes mellitus, type 1, with hypoglycemia. 2. History of recent intentional insulin overdosage. 3. Major depression without any psychotic features. 4. Borderline personality. RECOMMENDATIONS AND DISCUSSION: I recommend to continue current medications, continue with the monitoring, symptomatic treatment. Will adjust the dose of insulin. See orders for details. Ensure regular meals. Further recommendations to follow. MMODL / IJN: [id number] /
[2021-07-10 17:41] LABS: Glucose,Whole Blood 218 mg/dL (75-99)
[2021-07-10 20:08] LABS: Glucose,Whole Blood 79 mg/dL (75-99)
[2021-07-10] MEDS: LORazepam 1 MG TAB PO PRN (20:43)
[2021-07-11 08:05] LABS: Glucose,Whole Blood 377 mg/dL (75-99)
[2021-07-11] MEDS: INSULIN DETEMIR (LEVEMIR) 100 UNIT/ML SYR SQ SCH (08:10)
[2021-07-11] MEDS: INSULIN ASPART (NovoLOG) 100 UNIT/ML VIAL SQ SCH ×8 (08:10→21:09)
[2021-07-11] MEDS: LITHIUM CARBONATE 150 MG CAP PO SCH ×2 (08:12→21:10)
[2021-07-11] MEDS: FLUoxetine HCL 20 MG CAP PO SCH (08:13)
--- NOTE | 2021-07-11 09:44 | P.PN ---
Progress Note - Text Progress Note Date: 07/11/21 Interval History: Patient was seen wandering the hallways and was directable and agreeable to [place] heard with auto service writer in the office. Patient appeared to have improvement in his affect today. He appeared to be much calmer today during conversation and more appropriate. He claims that he needs to be discharged soon because he has an apartment that he has to move into and also to maintain his job. He claims that he realized that he was very overwhelmed and was not handling his "stress very well". He claims that he is sorry for punching the ceiling tile and trying to harm himself. He claims that the medications have been helping so far. He claims that he did not sleep well last night and requested we placed back on trazodone. He also was asking for another medication to help his anxiety during the day and agreed upon Vistaril when necessary. At this time patient denies any suicidal or homical ideations, intent or plan. Patient denies any auditory, visual hallucinations and denies any paranoia or delusions. Patient denies any side effects from the medications and has been compliant with meds. Mental Status Exam: General Appearance: Patient appears to be thin, longer hair, stated age is alert, more cooperative today. Patient has improving eye contact and improving hygiene. Behavior: Patient is calmly sitting in the chair, no agitation. Speech: Patient's speech is fluent and nonpressured. Mood/Affect: Patient reports their mood is "better", affect is congruent Suicidality/Homicidality: Patient denies having any suicidal or homicidal ideation intent or plan. Perceptions: Patient denies any visual hallucinations and denies any auditory hallucinations Though content/process: More directable today, goal oriented and logical. 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 Patient has signed adult voluntary form and was placed in patient's chart. -Medications: Continue with lithium 150 mg twice a day for mood adjunct/suicidal thoughts, increased Prozac to 40 mg daily for mood/anxiety. Increase trazodone to 100 mg daily at bedtime for sleep/mood. -When necessary vistaril and Haldol for agitation/aggression. -NRT - not needed as patient does not smoke -SW on board for discharge planning. Encouraged the patient to participate in milieu.
[2021-07-11] MEDS: hydrOXYzine pamoate 25 MG CAP PO PRN ×2 (11:24→19:28)
[2021-07-11 12:52] LABS: Glucose,Whole Blood 132 mg/dL (75-99)
[2021-07-11] MEDS: LORazepam 1 MG TAB PO PRN ×2 (15:31→21:11)
[2021-07-11 16:17] LABS: Glucose,Whole Blood 55 mg/dL (75-99)
[2021-07-11 16:30] LABS: Glucose,Whole Blood 57 mg/dL (75-99)
[2021-07-11 16:46] LABS: Glucose,Whole Blood 79 mg/dL (75-99)
[2021-07-11 17:38] LABS: Glucose,Whole Blood 206 mg/dL (75-99)
[2021-07-11 20:13] LABS: Glucose,Whole Blood 318 mg/dL (75-99)
[2021-07-11] MEDS ORDERED: traZODone HCL 100 MG TAB PO SCH (21:00)
[2021-07-12] MEDS: LITHIUM CARBONATE 150 MG CAP PO SCH (07:39)
[2021-07-12 07:51] LABS: Glucose,Whole Blood 265 mg/dL (75-99)
[2021-07-12] MEDS: INSULIN ASPART (NovoLOG) 100 UNIT/ML VIAL SQ SCH ×2 (08:13→08:17)
[2021-07-12] MEDS ORDERED: FLUoxetine HCL 20 MG CAP PO SCH (09:00)
[2021-07-12] MEDS: INSULIN DETEMIR (LEVEMIR) 100 UNIT/ML SYR SQ SCH (09:00)
--- NOTE | 2021-07-12 14:32 | P.DS ---
Providers Date of admission: 07/09/21 18:58 Expected date of discharge: 07/12/21 Attending physician: Fer Merlos MD Consults: 07/09/21 20:01 Consult Physician Routine Consulting Provider: Brown Valenzuela Consult Reason/Comments: H&P and medical Do you want consulting provider notified?: Yes Primary care physician: Brown Valenzuela Hospital Course: He was seen prior to discharge. He continued to improve and dismissed the seriousness of his "insulin overdosage" . He attributed to his over-stressed reaction and did not view as a serious suicidal attempt. He talked about how he had the habit of emotional eating which affected his glycemic control. He was discussed at team meeting. He apparently has had revolving door pattern of acute admission. He was comfortable with the medication regimen HE was discharged home. with follow up as previously arranged. Plan - Discharge Summary New Discharge Prescriptions: New traZODone HCL [Desyrel] 100 mg PO HS PRN 30 Days tab PRN Reason: Insomnia [place] Carbonate 150 mg PO BID 30 Days cap FLUoxetine HCL [PROzac] 40 mg PO DAILY 30 Days cap hydrOXYzine pamoate [Vistaril] 25 mg PO BID PRN 30 Days cap PRN Reason: Anxiety Continue Sildenafil Citrate 20 - 100 mg PO DAILY PRN PRN Reason: e.d. Gabapentin 600 mg PO TID PRN PRN Reason: Pain Ibuprofen [Motrin] 800 mg PO QID PRN PRN Reason: Pain No Action Insulin Detemir (Levemir) [Levemir] 25 unit SQ DAILY Ergocalciferol [Vitamin D2 (1250 Mcg = 05828 Iu)] 1,250 mcg PO Q30D INSULIN ASPART (NovoLOG) [NovoLOG (formulary)] 10 unit SQ AC-TID INSULIN ASPART (NovoLOG) [NovoLOG (formulary)] 0 unit SQ ACHS ml INSULIN ASPART (NovoLOG) [NovoLOG (formulary)] 6 unit SQ HS Discharge Medication List Insulin Detemir (Levemir) [Levemir] 25 unit SQ DAILY 08/27/20 [History] Sildenafil Citrate 20 - 100 mg PO DAILY PRN 05/02/21 [History] Ergocalciferol [Vitamin D2 (1250 Mcg = 07969 Iu)] 1,250 mcg PO Q30D 06/29/21 [History] Gabapentin 600 mg PO TID PRN 06/29/21 [History] INSULIN ASPART (NovoLOG) [NovoLOG (formulary)] 6 unit SQ HS 06/29/21 [History] INSULIN ASPART (NovoLOG) [NovoLOG (formulary)] 10 unit SQ AC-TID 06/29/21 [History] Ibuprofen [Motrin] 800 mg PO QID PRN 06/29/21 [History] INSULIN ASPART (NovoLOG) [NovoLOG (formulary)] 0 unit SQ ACHS ml 07/09/21 [Rx] FLUoxetine HCL [PROzac] 40 mg PO DAILY 30 Days cap 07/11/21 [Rx] [place] Carbonate 150 mg PO BID 30 Days cap 07/11/21 [Rx] hydrOXYzine pamoate [Vistaril] 25 mg PO BID PRN 30 Days cap 07/11/21 [Rx] traZODone HCL [Desyrel] 100 mg PO HS PRN 30 Days tab 07/11/21 [Rx] Follow up Appointment(s)/Referral(s): [facility] [Other] - 07/16/21 2:45 pm (with Bella Weeks) Brown Valenzuela MD [Primary Care Provider] - 1 Week Patient Instructions/Handouts: Depression (DC) Activity/Diet/Wound Care/Special Instructions: Activity and diet as tolerated. Avoid the use of street drugs and alcohol. Take all medications as prescribed. When you are in need of refills on your medications please contact your medical provider and/or outpatient psychiatrist to have this done. Please go to scheduled outpatient appointment for aftercare treatment. If symptoms return or become worse, call the crisis line at and/or go to the nearest emergency room for evaluation Discharge Disposition: HOME SELF-CARE
== END 2021-07-12 10:25 | disposition home or self-care (01) | DRG 885 ==
LOC: 3MHU 18:58
PROVIDERS: ADMIT Psychiatry & Neurology Psychiatry; ATTEND Psychiatry & Neurology Psychiatry
DX: F33.2 Major depressive disorder, recurrent severe without psychotic features (principal); E10.649 Type 1 diabetes mellitus with hypoglycemia without coma; F12.20 Cannabis dependence, uncomplicated; F41.9 Anxiety disorder, unspecified; R45.1 Restlessness and agitation; F13.10 Sedative, hypnotic or anxiolytic abuse, uncomplicated; F60.3 Borderline personality disorder; T38.3X2A Poisoning by insulin and oral hypoglycemic [antidiabetic] drugs, intentional self-harm, initial encounter; Z79.4 Long term (current) use of insulin; Z82.3 Family history of stroke; Z71.51 Drug abuse counseling and surveillance of drug abuser; Z78.1 Physical restraint status

== ENCOUNTER 2021-08-06 22:09 | Observation (INO) | payer OTHER ==
[2021-08-06] MEDS ORDERED: ONDANSETRON 4 MG/2 ML VIAL IVP STA (22:12)
[2021-08-06] MEDS ORDERED: SODIUM CHLORIDE 0.9% 500 ML 500 ML IV STA (22:12)
[2021-08-06] MEDS ORDERED: SODIUM CHLORIDE 0.9% 1,000 ML IV STA ×2 (22:12)
--- NOTE | 2021-08-06 22:16 | ED ---
Nausea/Vomiting/Diarrhea HPI - General Stated complaint: Vomiting Time Seen by Provider: 08/06/21 22:12 Source: RN notes reviewed, old records reviewed Mode of arrival: EMS Limitations: no limitations - History of Present Illness Initial comments: This is a 25-year-old male DF for evaluation. Patient presented today for evaluation of nausea vomiting not feeling well abdominal pain dehydration. History of asthma history of diabetes severe. Does admit to drinking alcohol use but not today MD complaint: nausea, vomiting, abdominal pain -: days(s) Description of Vomiting: food contents Description of Diarrhea: water Associated Abdominal Pain: Yes Location: diffuse Severity: severe Quality: stabbing, aching Consistency: constant Improves with: none Worsens with: none Associated Symptoms: denies other symptoms - Related Data Home Medications Medication Instructions Recorded Confirmed Insulin Detemir (Levemir) [Levemir] 25 unit SQ DAILY 08/27/20 07/09/21 Sildenafil Citrate 20 - 100 mg PO DAILY PRN 05/02/21 07/09/21 Ergocalciferol [Vitamin D2 (1250 1,250 mcg PO Q30D 06/29/21 07/09/21 Mcg = 91186 Iu)] Gabapentin 600 mg PO TID PRN 06/29/21 07/09/21 INSULIN ASPART (NovoLOG) [NovoLOG 6 unit SQ HS 06/29/21 07/09/21 (formulary)] INSULIN ASPART (NovoLOG) [NovoLOG 10 unit SQ AC-TID 06/29/21 07/09/21 (formulary)] Ibuprofen [Motrin] 800 mg PO QID PRN 06/29/21 07/09/21 Previous Rx's Medication Instructions Recorded INSULIN ASPART (NovoLOG) [NovoLOG 0 unit SQ ACHS ml 07/09/21 (formulary)] FLUoxetine HCL [PROzac] 40 mg PO DAILY 30 Days cap 07/11/21 [place] Carbonate 150 mg PO BID 30 Days cap 07/11/21 hydrOXYzine pamoate [Vistaril] 25 mg PO BID PRN 30 Days cap 07/11/21 traZODone HCL [Desyrel] 100 mg PO HS PRN 30 Days tab 07/11/21 Allergies Allergy/AdvReac Type Severity Reaction Status Date / Time No Known Allergies Allergy Verified 08/06/21 22:50 Review of Systems ROS Statement: Those systems with pertinent positive or pertinent negative responses have been documented in the HPI. ROS Other: All systems not noted in ROS Statement are negative. Past Medical History Past Medical History: Asthma, Diabetes Mellitus, Skin Disorder Additional Past Medical History / Comment(s): IDDM type I, neuropathy bilateral feet, DKA, eczema. History of multiple psychiatric hospitalizations or suicide attempts. History of Any Multi-Drug Resistant Organisms: None Reported Past Surgical History: Adenoidectomy Additional Past Surgical History / Comment(s): 2002 Past Anesthesia/Blood Transfusion Reactions: No Reported Reaction Smoking Status: Vaper - Past Family History Mother Family Medical History: CVA/TIA Additional Family Medical History / Comment(s): TIA Father Family Medical History: Hyperlipidemia, Hypertension Additional Family Medical History / Comment(s): . General Exam General appearance: alert, in no apparent distress, anxious, in distress Head exam: Present: atraumatic, normocephalic, normal inspection Eye exam: Present: normal appearance, PERRL, EOMI. Absent: scleral icterus, conjunctival injection, periorbital swelling ENT exam: Present: normal exam, mucous membranes dry Neck exam: Present: normal inspection. Absent: tenderness, meningismus, lymphadenopathy Respiratory exam: Present: normal lung sounds bilaterally. Absent: respiratory distress, wheezes, rales, rhonchi, stridor Cardiovascular Exam: Present: regular rate, normal rhythm, normal heart sounds. Absent: systolic murmur, diastolic murmur, rubs, gallop, clicks GI/Abdominal exam: Present: soft, normal bowel sounds. Absent: distended, tenderness, guarding, rebound, rigid Extremities exam: Present: normal inspection, full ROM, normal capillary refill. Absent: tenderness, pedal edema, joint swelling, calf tenderness Back exam: Present: normal inspection Neurological exam: Present: alert, oriented X3, CN II-XII intact Psychiatric exam: Present: normal affect, normal mood Skin exam: Present: warm, dry, intact, normal color. Absent: rash Course Vital Signs 08/06/21 08/06/21 22:47 23:04 Temperature 97.9 F Pulse Rate 104 H Respiratory 22 Rate Blood Pressure 118/87 O2 Sat by Pulse 98 Oximetry - Reevaluation(s) Reevaluation #1: 08/06/21 23:47 Medical record is reviewed Reevaluation #2: 08/06/21 23:47 Patient is informed of Results questions answered Reevaluation #3: 08/06/21 23:47 Patient has no improvement here in the emergency department - Consultations Consultation #1: Spoke with Dr. Valenzuela who is okay for admission Medical Decision Making - Medical Decision Making 22 female to the emergency department for evaluation. Patient presents today for evaluation of some drinking recently and persistent nausea vomiting today weakness dehydration found to be in DKA. Patient will be admitted for close monitoring and correction of DKA - Lab Data Result diagrams: 08/06/21 22:44 08/06/21 22:44 Lab Results 08/06/21 08/06/21 08/06/21 Range/Units 22:31 22:44 22:44 WBC 10.9 H (3.8-10.6) k/uL RBC 5.07 (4.30-5.90) m/uL Hgb 16.3 (13.0-17.5) gm/dL Hct 50.3 (39.0-53.0) % MCV 99.1 D (80.0-100.0) fL MCH 32.2 (25.0-35.0) pg MCHC 32.5 (31.0-37.0) g/dL RDW 12.7 (11.5-15.5) % Plt Count 347 (150-450) k/uL MPV 7.5 Neutrophils % 83 % Lymphocytes % 12 % Monocytes % 3 % Eosinophils % 0 % Basophils % 0 % Neutrophils # 9.1 H (1.3-7.7) k/uL Lymphocytes # 1.3 (1.0-4.8) k/uL Monocytes # 0.4 (0-1.0) k/uL Eosinophils # 0.0 (0-0.7) k/uL Basophils # 0.0 (0-0.2) k/uL VBG pH 7.19 L* (7.31-7.41) VBG pCO2 36 L (37-51) mmHg VBG HCO3 13 L (24-28) mmol/L Sodium 132 L (137-145) mmol/L Potassium 5.4 H (3.5-5.1) mmol/L Chloride 94 L (98-107) mmol/L Carbon Dioxide 10 L (22-30) mmol/L Anion Gap 28 mmol/L BUN 21 H (9-20) mg/dL Creatinine 1.09 (0.66-1.25) mg/dL Est GFR (CKD-EPI)AfAm >90 (>60 ml/min/1.73 sqM) Est GFR (CKD-EPI)NonAf >90 (>60 ml/min/1.73 sqM) Glucose 455 H (74-99) mg/dL POC Glucose (mg/dL) (75-99) mg/dL POC Glu Pull Out Operator ID Calcium 8.7 (8.4-10.2) mg/dL Phosphorus 4.9 H (2.5-4.5) mg/dL Magnesium 2.0 (1.6-2.3) mg/dL Total Bilirubin 1.2 (0.2-1.3) mg/dL AST 22 (17-59) U/L ALT 22 (4-49) U/L Alkaline Phosphatase 104 (38-126) U/L Total Protein 7.7 (6.3-8.2) g/dL Albumin 5.0 (3.5-5.0) g/dL Salicylates <1.0 mg/dL Acetaminophen <10.0 ug/mL Serum Alcohol <10 mg/dL Acetone, Qual Positive (Negative) 08/06/21 Range/Units 22:54 WBC (3.8-10.6) k/uL RBC (4.30-5.90) m/uL Hgb (13.0-17.5) gm/dL Hct (39.0-53.0) % MCV (80.0-100.0) fL MCH (25.0-35.0) pg MCHC (31.0-37.0) g/dL RDW (11.5-15.5) % Plt Count (150-450) k/uL MPV Neutrophils % % Lymphocytes % % Monocytes % % Eosinophils % % Basophils % % Neutrophils # (1.3-7.7) k/uL Lymphocytes # (1.0-4.8) k/uL Monocytes # (0-1.0) k/uL Eosinophils # (0-0.7) k/uL Basophils # (0-0.2) k/uL VBG pH (7.31-7.41) VBG pCO2 (37-51) mmHg VBG HCO3 (24-28) mmol/L Sodium (137-145) mmol/L Potassium (3.5-5.1) mmol/L Chloride (98-107) mmol/L Carbon Dioxide (22-30) mmol/L Anion Gap mmol/L BUN (9-20) mg/dL Creatinine (0.66-1.25) mg/dL Est GFR (CKD-EPI)AfAm (>60 ml/min/1.73 sqM) Est GFR (CKD-EPI)NonAf (>60 ml/min/1.73 sqM) Glucose (74-99) mg/dL POC Glucose (mg/dL) 379 H (75-99) mg/dL POC Glu Pull Out Operator ID Zafar Lopez Calcium (8.4-10.2) mg/dL Phosphorus (2.5-4.5) mg/dL Magnesium (1.6-2.3) mg/dL Total Bilirubin (0.2-1.3) mg/dL AST (17-59) U/L ALT (4-49) U/L Alkaline Phosphatase (38-126) U/L Total Protein (6.3-8.2) g/dL Albumin (3.5-5.0) g/dL Salicylates mg/dL Acetaminophen ug/mL Serum Alcohol mg/dL Acetone, Qual (Negative) - EKG Data -: EKG Interpreted by Me (EKG is sinus tachycardia 110 VT 148 QRS 93 QTC 394) Critical Care Time Critical Care Time: Yes Total Critical Care Time: 31 Disposition Clinical Impression: Dehydration, DKA (diabetic ketoacidoses) Disposition: ADMITTED IP TO THIS [facility] Condition: Serious Is patient prescribed a controlled substance at d/c from ED?: No Referrals: Brown Valenzuela MD [Primary Care Provider] - 1-2 days
[2021-08-06 23:04] LABS: Glucose,Whole Blood 379 mg/dL (75-99)
[2021-08-06 23:17] LABS: Basophils % (A) 0 %; Eosinophils % (A) 0 %; HCT 50.3 % (39.0-53.0); HGB 16.3 gm/dL (13.0-17.5); Lymphocytes # (A) 1.3 k/uL (1.0-4.8); Lymphocytes % (A) 12 %; MCH 32.2 pg (25.0-35.0); MCHC 32.5 g/dL (31.0-37.0); Mean Platelet Volume 7.5; Monocytes # (A) 0.4 k/uL (0-1.0); Monocytes % (A) 3 %; Neutrophils # (A) 9.1 k/uL (1.3-7.7); Neutrophils % (A) 83 %; Platelet Count 347 k/uL (150-450); RBC 5.07 m/uL (4.30-5.90); RDW 12.7 % (11.5-15.5); WBC 10.9 k/uL (3.8-10.6)
[2021-08-06 23:17] LABS: VBG PH 7.19 (7.31-7.41)
[2021-08-06 23:27] LABS: MCV 99.1 fL (80.0-100.0)
[2021-08-06 23:31] LABS: ALT 22 U/L (4-49); AST 22 U/L (17-59); Acetaminophen <10.0 ug/mL; African American GFR (CKD) >90 (>60 ml/min/1.73 sqM); Alcohol <10 mg/dL; Alkaline Phosphatase 104 U/L (38-126); Anion Gap 28 mmol/L; Blood Urea Nitrogen 21 mg/dL (9-20); Calcium 8.7 mg/dL (8.4-10.2); Carbon Dioxide 10 mmol/L (22-30); Chloride 94 mmol/L (98-107); Glucose 455 mg/dL (74-99); Non-African American GFR(CKD) >90 (>60 ml/min/1.73 sqM); Phosphorus 4.9 mg/dL (2.5-4.5); Potassium 5.4 mmol/L (3.5-5.1); Salicylate <1.0 mg/dL; Sodium 132 mmol/L (137-145); Total Bilirubin 1.2 mg/dL (0.2-1.3); Total Protein 7.7 g/dL (6.3-8.2)
[2021-08-06] MEDS ORDERED: INSULIN REGULAR BOLUS (FROM DRIP BAG) IV ONE (23:41)
[2021-08-07 00:42] LABS: Appearance,Urine Clear (Clear); Bilirubin,Urine Negative (Negative); Blood,Urine Negative (Negative); Color,Urine Light Yellow; Glucose,Urine (UA) 4+ (Negative); Leukocyte Esterase,Urine Negative (Negative); Nitrite,Urine Negative (Negative); Protein,Urine Negative (Negative); Specific Gravity,Urine 1.029 (1.001-1.035); Urobilinogen,Urine <2.0 mg/dL (<2.0)
[2021-08-07 00:44] LABS: African American GFR (CKD) >90 (>60 ml/min/1.73 sqM); Anion Gap 22 mmol/L; Blood Urea Nitrogen 21 mg/dL (9-20); Carbon Dioxide 11 mmol/L (22-30); Chloride 99 mmol/L (98-107); Glucose 401 mg/dL (74-99); Non-African American GFR(CKD) >90 (>60 ml/min/1.73 sqM); Potassium 5.9 mmol/L (3.5-5.1); Sodium 132 mmol/L (137-145)
[2021-08-07 01:14] LABS: Ketones,Urine 4+ (Negative)
[2021-08-07] MEDS: INSULIN REGULAR 100 UNIT in SODIUM CHLORIDE 0.9% 100 ML IV SCH ×2 (02:19→16:01)
[2021-08-07] MEDS: SODIUM CHLORIDE 0.9% 1,000 ML IV SCH ×5 (02:22→21:06)
[2021-08-07 02:24] LABS: Glucose,Whole Blood 413 mg/dL (75-99)
[2021-08-07 04:04] LABS: Glucose,Whole Blood 293 mg/dL (75-99)
[2021-08-07 04:38] LABS: Glucose,Whole Blood 250 mg/dL (75-99)
[2021-08-07 04:45] LABS: African American GFR (CKD) >90 (>60 ml/min/1.73 sqM); Anion Gap 22 mmol/L; Blood Urea Nitrogen 21 mg/dL (9-20); Carbon Dioxide 11 mmol/L (22-30); Chloride 105 mmol/L (98-107); Glucose 282 mg/dL (74-99); Non-African American GFR(CKD) >90 (>60 ml/min/1.73 sqM); Potassium 4.5 mmol/L (3.5-5.1); Sodium 138 mmol/L (137-145)
[2021-08-07] MEDS: D5-0.45% NACL WITH KCL 20MEQ/L 1,000 ML IV SCH ×2 (05:00→16:01)
[2021-08-07 06:11] LABS: Glucose,Whole Blood 207 mg/dL (75-99)
[2021-08-07 07:36] LABS: Glucose,Whole Blood 181 mg/dL (75-99)
[2021-08-07 08:44] LABS: Glucose,Whole Blood 198 mg/dL (75-99)
[2021-08-07 09:36] LABS: Glucose,Whole Blood 197 mg/dL (75-99)
[2021-08-07 10:35] LABS: Glucose,Whole Blood 161 mg/dL (75-99)
[2021-08-07] MEDS ORDERED: IBUPROFEN 800 MG TAB PO PRN (11:08)
[2021-08-07] MEDS ORDERED: hydrOXYzine pamoate 25 MG CAP PO PRN (11:08)
[2021-08-07] MEDS ORDERED: GABAPENTIN 300 MG CAP PO PRN (11:08)
[2021-08-07 11:40] LABS: Glucose,Whole Blood 117 mg/dL (75-99)
[2021-08-07 12:36] LABS: Glucose,Whole Blood 88 mg/dL (75-99)
[2021-08-07 13:30] LABS: Glucose,Whole Blood 119 mg/dL (75-99)
[2021-08-07] MEDS: INSULIN ASPART (NovoLOG) 100 UNIT/ML VIAL SQ SCH ×2 (13:48→17:00)
[2021-08-07 13:54] LABS: Phosphorus 2.5 mg/dL (2.5-4.5); Potassium 4.4 mmol/L (3.5-5.1)
--- NOTE | 2021-08-07 18:13 | HP ---
HISTORY AND PHYSICAL CHIEF COMPLAINT: DKA. HISTORY OF PRESENT ILLNESS: This is another recent admission for this 25-year-old depressed white male. He has type 1 insulin-dependent diabetes mellitus and refuses to take care of himself. He will stop taking his insulin and start drinking and come in in DKA, which is what happened this time. REVIEW OF SYSTEMS: He has had no change in vision or hearing. He has had no chest pain. He has had some nausea but no vomiting. He has had no diarrhea. Past medical history, family history, and personal and social histories are all otherwise unremarkable or unchanged from his recent admitting and discharge summaries. He was just seen in the office the other day and was doing well. PHYSICAL EXAMINATION: Blood pressure is 126/68 with a pulse of 97, respirations of 38, and he is afebrile. In general he appeared to be slender and slightly lethargic. He was dehydrated. Head, ears, eyes, nose, mouth and throat were normal. Neck is supple. Chest is clear to auscultation and percussion. Cardiac exam demonstrates sinus tachycardia. The abdomen is flat, soft and nontender without any visceromegaly or masses. Bowel sounds are present. Extremities are normal. Neurologically he is intact. He is admitted to the hospital with the diagnoses: 1. Diabetic ketoacidosis. 2. Depression. PLAN: 1. Bedrest. 2. DKA protocol. 3. Psych evaluation. MMBIANCA / ALDEN: [id number] /
[2021-08-07 20:38] LABS: Glucose,Whole Blood 296 mg/dL (75-99)
[2021-08-07] MEDS ORDERED: traZODone HCL 100 MG TAB PO SCH (21:00)
[2021-08-07] MEDS ORDERED: INSULIN ASPART (NovoLOG) 100 UNIT/ML VIAL SQ SCH (21:00)
[2021-08-07] MEDS: LITHIUM CARBONATE 150 MG CAP PO SCH (21:03)
[2021-08-08] MEDS: SODIUM CHLORIDE 0.9% 1,000 ML IV SCH ×3 (01:06→11:48)
[2021-08-08 01:09] LABS: Glucose,Whole Blood 209 mg/dL (75-99)
[2021-08-08] MEDS ORDERED: ONDANSETRON 4 MG/2 ML VIAL IVP PRN (05:55)
[2021-08-08 07:09] LABS: Glucose,Whole Blood 341 mg/dL (75-99)
[2021-08-08] MEDS: INSULIN ASPART (NovoLOG) 100 UNIT/ML VIAL SQ SCH ×2 (08:22→12:30)
[2021-08-08] MEDS: LITHIUM CARBONATE 150 MG CAP PO SCH (08:22)
[2021-08-08] MEDS ORDERED: FLUoxetine HCL 20 MG CAP PO SCH (09:00)
[2021-08-08] MEDS ORDERED: INSULIN DETEMIR (LEVEMIR) 100 UNIT/ML SYR SQ SCH (09:00)
[2021-08-08 11:35] LABS: Glucose,Whole Blood 169 mg/dL (75-99)
[2021-08-08 14:39] VITALS: BP 118/75; PULSE 100; RESP 18; TEMP 97.8
--- NOTE | 2021-08-09 16:06 | DS ---
DISCHARGE SUMMARY CHIEF COMPLAINT: DKA, intractable nausea and vomiting, dehydration and depression. HISTORY OF PRESENT ILLNESS AND PHYSICAL EXAMINATION: Details of this man's history and physical can be found in the initial workup. LABORATORY STUDIES: While he was in the hospital he had laboratory studies, details of which can be found in the laboratory section of his chart. COURSE IN THE HOSPITAL: After admission he was placed on bedrest and started on intravenous fluids and DKA protocol. Blood sugars came down. He had some difficulty with nausea and vomiting, but he was improving and wanted to be discharged on August 08. He will go home on his usual activity, diet and medications and follow up in the office in a day or two. FINAL DIAGNOSIS: 1. Diabetic ketoacidosis. 2. Intractable nausea and vomiting. 3. Dehydration. 4. Depression. OPERATIONS: None. CONSULTATIONS: None. He is improved. GRACE / ALDEN: [id number] /
== END 2021-08-08 16:09 | disposition home or self-care (01) ==
LOC: EC 22:09 → 3SCARD 08-07 → INTOOBSV 08-07 → 3SCARD 08-07 13:53 → 5NMEDONC 08-07 16:15 → 4SSUR 08-08 15:41 → 5NMEDONC 08-08 15:43 → UNDODISIN 08-08 16:09
PROVIDERS: ADMIT Family Medicine; ATTEND Family Medicine
DX: E10.10 Type 1 diabetes mellitus with ketoacidosis without coma (principal); E86.0 Dehydration; E10.42 Type 1 diabetes mellitus with diabetic polyneuropathy; F32.A Depression, unspecified; J45.909 Unspecified asthma, uncomplicated; L30.9 Dermatitis, unspecified; Z91.14 Patient's other noncompliance with medication regimen; Z79.4 Long term (current) use of insulin; Z79.899 Other long term (current) drug therapy; Z91.51 Personal history of suicidal behavior; Z98.890 Other specified postprocedural states; Z82.3 Family history of stroke; Z83.49 Family history of other endocrine, nutritional and metabolic diseases; Z82.49 Family history of ischemic heart disease and other diseases of the circulatory system
CPT/HCPCS: 96376; 96361 ×3; 96365; 96366; 96375; 99291; 36415; 93005; 80051; 80053; 82565; 82803; 82009; 83735; 84100; 82947; 84520; 85025; 81003; 80143; 80179; G0378 ×3; G0480; J2405 ×2; 80320; 96374

== ENCOUNTER 2021-08-12 21:21 | Observation (INO) | payer OTHER ==
[2021-08-12] MEDS ORDERED: SODIUM CHLORIDE 0.9% 1,000 ML IV STA ×2 (21:29→23:13)
--- NOTE | 2021-08-12 21:31 | ED ---
Weakness HPI - General Stated complaint: DKA Time Seen by Provider: 08/12/21 21:25 Source: RN notes reviewed, old records reviewed Mode of arrival: EMS Limitations: no limitations, language barrier - History of Present Illness Initial comments: This is a 25-year-old male to the emergency department for evaluation. Patient's well-known emergency department coming in for nausea vomiting weakness. Not feeling well. Abdominal pain. Patient recent travel history or sick contacts, no fevers, no other complaints. He does have history of type 1 diabetes. Patient has recent fevers or alcohol use MD Complaint: generalized weakness, lack of energy -: days(s) Location: generalized Severity: severe Severity scale (1-10): 9 Quality: tingling, numbness Consistency: constant Improves with: none Worsens with: none Context: recent illness, history of similar Associated Symptoms: loss of appetite, nausea/vomiting, shortness of breath - Related Data Home Medications Medication Instructions Recorded Confirmed Insulin Detemir (Levemir) [Levemir] 25 unit SQ DAILY 08/27/20 08/12/21 Sildenafil Citrate 20 - 100 mg PO DAILY PRN 05/02/21 08/12/21 Ergocalciferol [Vitamin D2 (1250 1,250 mcg PO Q30D 06/29/21 08/12/21 Mcg = 83793 Iu)] Gabapentin 600 mg PO TID PRN 06/29/21 08/12/21 INSULIN ASPART (NovoLOG) [NovoLOG 6 unit SQ HS 06/29/21 08/12/21 (formulary)] INSULIN ASPART (NovoLOG) [NovoLOG 10 unit SQ AC-TID 06/29/21 08/12/21 (formulary)] Ibuprofen [Motrin] 800 mg PO QID PRN 06/29/21 08/12/21 FLUoxetine HCL [PROzac] 40 mg PO DAILY 08/07/21 08/12/21 traZODone HCL 300 mg PO HS 08/07/21 08/12/21 hydrOXYzine pamoate [Vistaril] 50 mg PO TID 08/12/21 08/12/21 Previous Rx's Medication Instructions Recorded [place] Carbonate 150 mg PO BID 30 Days cap 07/11/21 Allergies Allergy/AdvReac Type Severity Reaction Status Date / Time No Known Allergies Allergy Verified 08/07/21 09:30 Review of Systems ROS Statement: Those systems with pertinent positive or pertinent negative responses have been documented in the HPI. ROS Other: All systems not noted in ROS Statement are negative. Past Medical History Past Medical History: Asthma, Diabetes Mellitus, Skin Disorder Additional Past Medical History / Comment(s): IDDM type I, neuropathy bilateral feet, DKA, eczema. History of multiple psychiatric hospitalizations or suicide attempts. History of Any Multi-Drug Resistant Organisms: None Reported Past Surgical History: Adenoidectomy Additional Past Surgical History / Comment(s): 2002 Past Anesthesia/Blood Transfusion Reactions: No Reported Reaction Smoking Status: Former smoker, Vaper - Past Family History Mother Family Medical History: CVA/TIA Additional Family Medical History / Comment(s): TIA Father Family Medical History: Hyperlipidemia, Hypertension Additional Family Medical History / Comment(s): . General Exam General appearance: alert, in no apparent distress, anxious Head exam: Present: atraumatic, normocephalic, normal inspection Eye exam: Present: normal appearance, PERRL, EOMI. Absent: scleral icterus, conjunctival injection, periorbital swelling ENT exam: Present: normal exam, mucous membranes dry Neck exam: Present: normal inspection. Absent: tenderness, meningismus, lymphadenopathy Respiratory exam: Present: normal lung sounds bilaterally. Absent: respiratory distress, wheezes, rales, rhonchi, stridor Cardiovascular Exam: Present: normal rhythm, tachycardia, normal heart sounds. Absent: systolic murmur, diastolic murmur, rubs, gallop, clicks GI/Abdominal exam: Present: soft, normal bowel sounds. Absent: distended, tende rness, guarding, rebound, rigid Extremities exam: Present: normal inspection, full ROM, normal capillary refill. Absent: tenderness, pedal edema, joint swelling, calf tenderness Back exam: Present: normal inspection Neurological exam: Present: alert, oriented X3, CN II-XII intact Psychiatric exam: Present: normal affect, normal mood Skin exam: Present: warm, dry, intact, normal color. Absent: rash Course Vital Signs 08/12/21 08/12/21 08/12/21 21:30 21:33 22:52 Temperature 97.9 F Pulse Rate 95 96 101 H Respiratory 20 18 18 Rate Blood Pressure 142/95 142/95 142/95 O2 Sat by Pulse 99 100 97 Oximetry - Reevaluation(s) Reevaluation #1: 03/20/22 23:17 Medical record is reviewed Reevaluation #2: 08/12/21 23:17 Patient symptoms are improved here in the ER Reevaluation #3: 08/12/21 23:17 Patient informed results and questions answered - Consultations Consultation #1: Spoke with Dr. Valenzuela who agrees to admit this patient EKG Findings - EKG Comments: EKG Findings:: EKG is sinus tachycardia 113 GA 126 QRS 91 QTC 399 Medical Decision Making - Medical Decision Making 22 female DF for evaluation. Patient is in acute DKA. Patient will be admitted under DKA insulin cardiac monitoring and telemetry. - Lab Data Result diagrams: 08/12/21 21:37 08/12/21 21:37 Lab Results 08/12/21 08/12/21 08/12/21 Range/Units 21:28 21:37 21:37 WBC 14.5 H (3.8-10.6) k/uL RBC 5.66 (4.30-5.90) m/uL Hgb 18.4 H (13.0-17.5) gm/dL Hct 53.8 H (39.0-53.0) % MCV 94.9 (80.0-100.0) fL MCH 32.6 (25.0-35.0) pg MCHC 34.3 (31.0-37.0) g/dL RDW 12.8 (11.5-15.5) % Plt Count 392 (150-450) k/uL MPV 7.5 Neutrophils % 90 % Lymphocytes % 7 % Monocytes % 2 % Eosinophils % 0 % Basophils % 1 % Neutrophils # 13.1 H (1.3-7.7) k/uL Lymphocytes # 1.0 (1.0-4.8) k/uL Monocytes # 0.2 (0-1.0) k/uL Eosinophils # 0.1 (0-0.7) k/uL Basophils # 0.1 (0-0.2) k/uL PT 10.4 (9.0-12.0) sec INR 0.9 (<1.2) APTT 21.2 L (22.0-30.0) sec Sodium (137-145) mmol/L Potassium (3.5-5.1) mmol/L Chloride (98-107) mmol/L Carbon Dioxide (22-30) mmol/L Anion Gap mmol/L BUN (9-20) mg/dL Creatinine (0.66-1.25) mg/dL Est GFR (CKD-EPI)AfAm (>60 ml/min/1.73 sqM) Est GFR (CKD-EPI)NonAf (>60 ml/min/1.73 sqM) Glucose (74-99) mg/dL POC Glucose (mg/dL) 556 H (75-99) mg/dL POC Glu Java Web Developer ID Johny Mcdonnell Calcium (8.4-10.2) mg/dL Phosphorus (2.5-4.5) mg/dL Magnesium (1.6-2.3) mg/dL Total Bilirubin (0.2-1.3) mg/dL AST (17-59) U/L ALT (4-49) U/L Alkaline Phosphatase (38-126) U/L Troponin I (0.000-0.034) ng/mL NT-Pro-B Natriuret Pep pg/mL Total Protein (6.3-8.2) g/dL Albumin (3.5-5.0) g/dL Serum Alcohol mg/dL Acetone, Qual (Negative) 08/12/21 08/12/21 08/12/21 Range/Units 21:37 21:37 21:37 WBC (3.8-10.6) k/uL RBC (4.30-5.90) m/uL Hgb (13.0-17.5) gm/dL Hct (39.0-53.0) % MCV (80.0-100.0) fL MCH (25.0-35.0) pg MCHC (31.0-37.0) g/dL RDW (11.5-15.5) % Plt Count (150-450) k/uL MPV Neutrophils % % Lymphocytes % % Monocytes % % Eosinophils % % Basophils % % Neutrophils # (1.3-7.7) k/uL Lymphocytes # (1.0-4.8) k/uL Monocytes # (0-1.0) k/uL Eosinophils # (0-0.7) k/uL Basophils # (0-0.2) k/uL PT (9.0-12.0) sec INR (<1.2) APTT (22.0-30.0) sec Sodium 142 (137-145) mmol/L Potassium 5.1 (3.5-5.1) mmol/L Chloride 100 (98-107) mmol/L Carbon Dioxide 9 L* (22-30) mmol/L Anion Gap 33 mmol/L BUN 24 H (9-20) mg/dL Creatinine 1.17 (0.66-1.25) mg/dL Est GFR (CKD-EPI)AfAm >90 (>60 ml/min/1.73 sqM) Est GFR (CKD-EPI)NonAf 87 (>60 ml/min/1.73 sqM) Glucose 586 H* (74-99) mg/dL POC Glucose (mg/dL) (75-99) mg/dL POC Glu Java Web Developer ID Calcium 10.2 (8.4-10.2) mg/dL Phosphorus 4.9 H (2.5-4.5) mg/dL Magnesium 2.4 H (1.6-2.3) mg/dL Total Bilirubin 1.0 (0.2-1.3) mg/dL AST 21 (17-59) U/L ALT 22 (4-49) U/L Alkaline Phosphatase 120 (38-126) U/L Troponin I <0.012 (0.000-0.034) ng/mL NT-Pro-B Natriuret Pep 26 pg/mL Total Protein 9.0 H (6.3-8.2) g/dL Albumin 5.7 H (3.5-5.0) g/dL Serum Alcohol <10 mg/dL Acetone, Qual Positive (Negative) Critical Care Time Critical Care Time: Yes Total Critical Care Time: 31 Disposition Clinical Impression: DKA (diabetic ketoacidoses), Nausea & vomiting, Hyperglycemia, Tachycardia Disposition: ADMITTED IP TO THIS [facility] Condition: Serious Is patient prescribed a controlled substance at d/c from ED?: No Referrals: Brown Valenzuela MD [Primary Care Provider] - 1-2 days
[2021-08-12 21:34] LABS: Glucose,Whole Blood 556 mg/dL (75-99)
[2021-08-12 21:57] LABS: Basophils # (A) 0.1 k/uL (0-0.2); Basophils % (A) 1 %; Eosinophils # (A) 0.1 k/uL (0-0.7); Eosinophils % (A) 0 %; HCT 53.8 % (39.0-53.0); HGB 18.4 gm/dL (13.0-17.5); Lymphocytes % (A) 7 %; MCH 32.6 pg (25.0-35.0); MCHC 34.3 g/dL (31.0-37.0); MCV 94.9 fL (80.0-100.0); Mean Platelet Volume 7.5; Monocytes # (A) 0.2 k/uL (0-1.0); Monocytes % (A) 2 %; Neutrophils # (A) 13.1 k/uL (1.3-7.7); Neutrophils % (A) 90 %; Platelet Count 392 k/uL (150-450); RBC 5.66 m/uL (4.30-5.90); RDW 12.8 % (11.5-15.5); WBC 14.5 k/uL (3.8-10.6)
[2021-08-12 22:14] LABS: INR 0.9 (<1.2); Prothrombin Time 10.4 sec (9.0-12.0)
[2021-08-12 22:21] LABS: ALT 22 U/L (4-49); AST 21 U/L (17-59); African American GFR (CKD) >90 (>60 ml/min/1.73 sqM); Albumin 5.7 g/dL (3.5-5.0); Alcohol <10 mg/dL; Alkaline Phosphatase 120 U/L (38-126); Anion Gap 33 mmol/L; Blood Urea Nitrogen 24 mg/dL (9-20); Calcium 10.2 mg/dL (8.4-10.2); Chloride 100 mmol/L (98-107); Magnesium 2.4 mg/dL (1.6-2.3); Non-African American GFR(CKD) 87 (>60 ml/min/1.73 sqM); Phosphorus 4.9 mg/dL (2.5-4.5); Potassium 5.1 mmol/L (3.5-5.1); Sodium 142 mmol/L (137-145)
[2021-08-12 22:28] LABS: Partial Thromboplastin Time 21.2 sec (22.0-30.0)
[2021-08-12 22:29] LABS: Carbon Dioxide 9 mmol/L (22-30); Glucose 586 mg/dL (74-99)
[2021-08-12] MEDS ORDERED: ONDANSETRON 4 MG/2 ML VIAL IVP STA (23:13)
[2021-08-12] MEDS ORDERED: MORPHINE SULFATE 4 MG/ML SYRINGE IV PRN (23:13)
[2021-08-12] MEDS ORDERED: MORPHINE SULFATE 4 MG/ML SYRINGE IVP STA (23:13)
[2021-08-12 23:23] LABS: Appearance,Urine Clear (Clear); Bilirubin,Urine Negative (Negative); Blood,Urine Negative (Negative); Color,Urine Light Yellow; Glucose,Urine (UA) 4+ (Negative); Leukocyte Esterase,Urine Negative (Negative); Nitrite,Urine Negative (Negative); PH, Urine 5.5 (5.0-8.0); Protein,Urine Negative (Negative); Urobilinogen,Urine <2.0 mg/dL (<2.0)
[2021-08-12] MEDS ORDERED: NALOXONE 0.4 MG/ML 1 ML VIAL IV PRN (23:23)
[2021-08-12 23:38] LABS: Ketones,Urine 4+ (Negative)
[2021-08-12] MEDS: PANTOPRAZOLE 40 MG/10 ML VIAL IV SCH (23:49)
[2021-08-13] MEDS: INSULIN REGULAR 100 UNIT in SODIUM CHLORIDE 0.9% 100 ML IV SCH ×2 (00:19→13:25)
[2021-08-13 01:30] LABS: Glucose,Whole Blood 286 mg/dL (75-99)
[2021-08-13 01:33] LABS: African American GFR (CKD) >90 (>60 ml/min/1.73 sqM); Anion Gap 25 mmol/L; Blood Urea Nitrogen 22 mg/dL (9-20); Chloride 111 mmol/L (98-107); Glucose 422 mg/dL (74-99); Non-African American GFR(CKD) >90 (>60 ml/min/1.73 sqM); Phosphorus 4.4 mg/dL (2.5-4.5); Sodium 144 mmol/L (137-145)
[2021-08-13 01:34] LABS: Carbon Dioxide 8 mmol/L (22-30)
[2021-08-13 02:06] LABS: Glucose,Whole Blood 227 mg/dL (75-99)
[2021-08-13] MEDS: D5-0.45% NACL WITH KCL 20MEQ/L 1,000 ML IV SCH ×3 (02:36→21:04)
[2021-08-13 03:17] LABS: Glucose,Whole Blood 161 mg/dL (75-99)
[2021-08-13 04:17] LABS: Glucose,Whole Blood 148 mg/dL (75-99)
[2021-08-13 05:21] LABS: Glucose,Whole Blood 171 mg/dL (75-99)
[2021-08-13 05:23] LABS: Basophils % (A) 0 %; Eosinophils # (A) 0.1 k/uL (0-0.7); Eosinophils % (A) 0 %; HCT 43.7 % (39.0-53.0); Lymphocytes # (A) 2.6 k/uL (1.0-4.8); Lymphocytes % (A) 14 %; MCH 31.8 pg (25.0-35.0); MCHC 33.7 g/dL (31.0-37.0); MCV 94.3 fL (80.0-100.0); Mean Platelet Volume 6.9; Monocytes # (A) 1.2 k/uL (0-1.0); Monocytes % (A) 7 %; Neutrophils # (A) 13.7 k/uL (1.3-7.7); Neutrophils % (A) 77 %; Platelet Count 334 k/uL (150-450); RBC 4.64 m/uL (4.30-5.90); WBC 17.8 k/uL (3.8-10.6)
[2021-08-13 05:28] LABS: HGB 14.7 gm/dL (13.0-17.5)
[2021-08-13 05:45] LABS: Potassium 4.5 mmol/L (3.5-5.1)
[2021-08-13 05:46] LABS: ALT 16 U/L (4-49); AST 14 U/L (17-59); African American GFR (CKD) >90 (>60 ml/min/1.73 sqM); Albumin 3.9 g/dL (3.5-5.0); Alkaline Phosphatase 75 U/L (38-126); Anion Gap 11 mmol/L; Blood Urea Nitrogen 21 mg/dL (9-20); Calcium 8.1 mg/dL (8.4-10.2); Carbon Dioxide 18 mmol/L (22-30); Chloride 114 mmol/L (98-107); Glucose 153 mg/dL (74-99); Magnesium 2.3 mg/dL (1.6-2.3); Non-African American GFR(CKD) >90 (>60 ml/min/1.73 sqM); Phosphorus 2.9 mg/dL (2.5-4.5); Sodium 143 mmol/L (137-145); Total Bilirubin 0.5 mg/dL (0.2-1.3); Total Protein 6.3 g/dL (6.3-8.2)
[2021-08-13 06:18] LABS: Glucose,Whole Blood 162 mg/dL (75-99)
[2021-08-13] MEDS: ONDANSETRON 4 MG/2 ML VIAL IVP PRN ×3 (06:21→21:08)
[2021-08-13 07:16] LABS: Glucose,Whole Blood 129 mg/dL (75-99)
[2021-08-13 08:22] LABS: Glucose,Whole Blood 123 mg/dL (75-99)
[2021-08-13] MEDS: PANTOPRAZOLE 40 MG/10 ML VIAL IV SCH (08:32)
[2021-08-13 09:26] LABS: Glucose,Whole Blood 124 mg/dL (75-99)
[2021-08-13 09:33] LABS: HCT 44.7 % (39.0-53.0); MCH 31.8 pg (25.0-35.0); MCHC 33.6 g/dL (31.0-37.0); MCV 94.5 fL (80.0-100.0); Mean Platelet Volume 6.8; Platelet Count 338 k/uL (150-450); RBC 4.73 m/uL (4.30-5.90); RDW 12.4 % (11.5-15.5); WBC 21.2 k/uL (3.8-10.6)
[2021-08-13 09:56] LABS: African American GFR (CKD) >90 (>60 ml/min/1.73 sqM); Anion Gap 7 mmol/L; Blood Urea Nitrogen 20 mg/dL (9-20); Calcium 8.4 mg/dL (8.4-10.2); Carbon Dioxide 21 mmol/L (22-30); Chloride 115 mmol/L (98-107); Glucose 129 mg/dL (74-99); Non-African American GFR(CKD) >90 (>60 ml/min/1.73 sqM); Potassium 4.2 mmol/L (3.5-5.1); Sodium 143 mmol/L (137-145)
[2021-08-13] MEDS ORDERED: GABAPENTIN 300 MG CAP PO PRN (10:39)
[2021-08-13 11:13] LABS: Glucose,Whole Blood 109 mg/dL (75-99)
[2021-08-13] MEDS: INSULIN DETEMIR (LEVEMIR) 100 UNIT/ML SYR SQ SCH (12:00)
[2021-08-13 13:01] LABS: Glucose,Whole Blood 214 mg/dL (75-99)
[2021-08-13] MEDS: INSULIN ASPART (NovoLOG) 100 UNIT/ML VIAL SQ SCH ×2 (13:07→17:29)
[2021-08-13 14:37] LABS: Glucose,Whole Blood 145 mg/dL (75-99)
[2021-08-13] MEDS ORDERED: traZODone HCL 100 MG TAB PO PRN (16:02)
--- NOTE | 2021-08-13 16:04 | P.CN ---
Psychiatric Consult - . Consult date: 08/13/21 Consult:: 08/13/21 15:01 Identification: Patient is a 25 years old single white male living in [facility] with a hx of DM type 1 and hx of depression and anxiety with multiple admissions in the past Reason for consultation: Depression History of present illness: Patient has a significant history of multiple mental health admissions in the past. He is an insulin-dependent diabetic and has had multiple overdoses in the past and suicide attempts. He apparently came to the emergency room yesterday after feeling nauseous, vomiting and feeling unwell. Patient at that time was also expressing abdominal pain. Patient was previously discharged from the mental health unit on Prozac 40 mg daily trazodone 100 mg daily at bedtime when necessary and also Vistaril. Patient was also placed on lithium at that time 150 mg twice a day. Patient follows up at [facility] for his mental health needs. She was seen at the bedside today. Patient's nurse claims that patient has been fairly lethargic and vomiting/feeling unwell. She claims that patient has not been endorsing any suicidal thoughts. Patient was difficult to awaken today and had a difficult time speaking. He appeared to be fairly nauseous and turned over several times during the interview to vomit. He claims that he was feeling unwell after eating Mendez's and states that "the food was funny". He claims that he was feeling nauseous and vomiting afterwards. He claims that he has not been taking care of his diabetes and giving himself insulin regularly. He states that he's also not been checking his blood sugars well. He states that he is now homeless. He claims that he is not having any suicidal thoughts and denies any homicidal thoughts. He is denying any auditory or visual hallucinations. Previous psychiatric history/drug and alcohol abuse: Patient has multiple psychiatric hospitalizations. He does not take any medication or see a psychiatrist/therapist on a regular basis. He takes trazodone on a when necessary basis to help him sleep. He said he has been smoking pot since age 13 or 14 and smokes up to quarter ounce per day. He said his last smoke was about a month ago. Denies smoking cigarettes or drinking alcohol. He refused to provide information regarding other substance abuse stating that it is irrelevant for today. But apparently he was abusing Xanax in the past and was in alf once for third degree fraud. Apparently he was going from store to store to get his Xanax. His last mental health admission was in November 2020. Social hx: He said he was raised fairly well by his parents and was not abused. He said he quit school in the 11th grade and went to work. He said he did not have any trouble in learning and did not have to repeat any classes or grades. He was suspended "a few times" and refused to provide the reasons for it. He was in alternate school and was in juvenile court system for 2 years. He denies any pending legal issues. He stays with his brother in a house or other friends and is currently homeless at this time. 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 Family history: He denies. Previous medical history: He has diabetes and is on insulin. He said he has 2 broken bones on his right hand. He has some abrasions on his right knuckles from punching the treatment. He did not have any surgery. MENTAL STATUS EXAM: General Appearance: Patient appears to be thin, longer hair, stated age is lethargic, difficult to awaken, appears to be fairly sick and in distress. Patient appears to have poor hygiene and grooming wearing hospital gown with poor eye contact. Behavior: Patient is laying in the bed and appears to be ill. Speech: Patient's speech is fluent and nonpressured. Soft tone. Mood/Affect: Patient reports their mood is "not good", affect is congruent and constricted Suicidality/Homicidality: Patient denies having any suicidal or homicidal ideation intent or plan. Perceptions: Patient denies any visual hallucinations and denies any auditory hallucinations Though content/process: Positive content, concrete. No delusions. Memory and concentration: AOX3, grossly intact for the purposes of this session. 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 PLAN: -At this time patient does not meet criteria for inpatient psychiatric hospitalization. However will continue to follow along as patient get started back on his psychiatric medications and hopefully will be able to give more of a history and more cooperative with the interview tomorrow. -Would recommend the following medication changes/additions: Decreased Prozac to 20 mg daily for mood/anxiety. I added trazodone 100 mg daily at bedtime when necessary for sleep. We'll hold off on lithium at this time. -Philosophy Faculty Member spoke with patient about substance abuse and the harmful effects on medical and mental health, patient verbally understood and agreed. -Communicated plan to patient's nurse -Psychiatry will continue to follow along -Please contact with any questions. 08/13/21 15:57 08/13/21 16:02
[2021-08-13] MEDS: SODIUM CHLORIDE 0.9% 1,000 ML IV SCH ×3 (16:37→22:19)
[2021-08-13 17:21] LABS: Glucose,Whole Blood 159 mg/dL (75-99)
[2021-08-13] MEDS: hydrOXYzine pamoate 25 MG CAP PO SCH ×2 (17:30→21:04)
--- NOTE | 2021-08-13 18:42 | HP ---
HISTORY AND PHYSICAL CHIEF COMPLAINT: DKA. HISTORY OF PRESENT ILLNESS: This is another admission for this 25-year-old with type 1 insulin-dependent diabetes mellitus with noncompliance and depression. He was just discharged last week. He came back in in DKA. He is having difficulty controlling his alcohol consumption and, on top of that, he does not take his insulin. REVIEW OF SYSTEMS: He is nauseated, but he has no fever, chills, cough, shortness of breath, abdominal pain, etc. Past medical history, family history, and personal and social histories are all otherwise unchanged from his recent discharge. PHYSICAL EXAMINATION: Blood pressure is 140/90 with a pulse of 105, respirations of 36, and he is afebrile. In general he appeared to be disheveled, slightly dehydrated and pale. Head, ears, eyes, nose and mouth are normal. Neck veins are not distended. Chest is clear. Cardiac exam demonstrates tachycardia. The abdomen is flat, soft and nontender. Extremities are normal. Neurologically he is intact. He is admitted to the hospital with diagnoses: 1. Diabetic ketoacidosis. 2. Uncontrolled type 1 insulin-dependent diabetes mellitus. 3. Intractable nausea and vomiting. 4. Dehydration. 5. Depression. PLAN: 1. DKA protocol. 2. Psych consult (again). MMODL / IJN: [id number] /
--- NOTE | 2021-08-13 18:50 | PN ---
PROGRESS NOTE DATE OF SERVICE: 08/13/2021 CHIEF COMPLAINT: DKA with nausea and vomiting. HISTORY OF PRESENT ILLNESS: This gentleman is out of DKA and his anion gap has closed. He is nauseated. I am also going to ask him to be evaluated by Psychiatry again. PHYSICAL EXAMINATION: He is dehydrated. He is doing better. Chest is clear. Cardiac exam is normal. Abdomen is soft, nontender. IMPRESSION: 1. Diabetic ketoacidosis. 2. Major depression. 3. Uncontrolled type 1 insulin-dependent diabetes. PLAN: 1. Progress activity and diet. 2. Move to a Med/Surg unit. 3. Await Psychiatry's impressions. MMODL / IJN: [id number] /
[2021-08-13 20:30] LABS: Glucose,Whole Blood 62 mg/dL (75-99)
[2021-08-13 20:41] LABS: Glucose,Whole Blood 59 mg/dL (75-99)
[2021-08-13 21:00] LABS: Glucose,Whole Blood 85 mg/dL (75-99)
[2021-08-13] MEDS ORDERED: INSULIN ASPART (NovoLOG) 100 UNIT/ML VIAL SQ SCH (21:00)
[2021-08-13] MEDS: LITHIUM CARBONATE 150 MG CAP PO SCH (21:04)
[2021-08-14] MEDS: SODIUM CHLORIDE 0.9% 1,000 ML IV SCH ×3 (00:51→15:35)
[2021-08-14 01:41] LABS: Glucose,Whole Blood 196 mg/dL (75-99)
[2021-08-14 07:23] LABS: Glucose,Whole Blood 225 mg/dL (75-99)
[2021-08-14] MEDS: ONDANSETRON 4 MG/2 ML VIAL IVP PRN (08:13)
[2021-08-14] MEDS: INSULIN ASPART (NovoLOG) 100 UNIT/ML VIAL SQ SCH ×4 (08:14→17:42)
[2021-08-14] MEDS: INSULIN DETEMIR (LEVEMIR) 100 UNIT/ML SYR SQ SCH (08:14)
[2021-08-14] MEDS: hydrOXYzine pamoate 25 MG CAP PO SCH ×3 (08:15→15:50)
[2021-08-14] MEDS: FLUoxetine HCL 20 MG CAP PO SCH ×2 (08:21→15:42)
[2021-08-14] MEDS: LITHIUM CARBONATE 150 MG CAP PO SCH ×2 (08:21→14:09)
[2021-08-14] MEDS: PANTOPRAZOLE 40 MG/10 ML VIAL IV SCH (08:21)
[2021-08-14 08:32] VITALS: RESP 18
[2021-08-14] MEDS ORDERED: FLUoxetine HCL 20 MG CAP PO SCH (09:00)
[2021-08-14] MEDS ORDERED: hydrALAZINE HCL 20 MG/ML 1 ML VIAL IVP PRN (11:14)
[2021-08-14] MEDS ORDERED: LOSARTAN 50 MG TAB PO SCH (11:15)
[2021-08-14 11:55] VITALS: BP 138/86; PULSE 90; TEMP 97.7
[2021-08-14 12:19] LABS: Glucose,Whole Blood 120 mg/dL (75-99)
[2021-08-14] MEDS: METOCLOPRAMIDE 5 MG/ML 2 ML VIAL IVP SCH ×2 (12:19→17:43)
--- NOTE | 2021-08-14 13:44 | P.PN ---
Progress Note - Text Progress Note Date: 08/14/21 Interval History: Patient was seen today for psychiatric follow-up. Patient continues to laying in bed and he states that he feels somewhat tired today. He claims that he does feel a little less nauseous today and has been vomiting less. He states that he is still not been able to tolerate foods. He claims that he had Mendez[employer] and does not know why he reacted this way and feeling sick and in the hospital. He states that he lost the apartment that he was supposed to get earlier. He cl aims that he was staying at his friend's house before coming in the hospital. He states that is mood and anxiety have been fairly well controlled with the medications. He states that he is able to sleep last night.. At this time patient denies any suicidal or homical ideations, intent or plan. Patient denies any auditory, visual hallucinations and denies any paranoia or delusions. Patient denies any side effects from the medications and has been compliant with meds. Mental Status Exam: General Appearance: Patient appears to be thin, longer hair, stated age is lethargic however is more awake than yesterday. Attempts to cooperate. Patient appears to have improving hygiene and grooming wearing hospital gown with improved eye contact. Behavior: Patient is laying in the bed and appears to be ill, improving Speech: Patient's speech is fluent and nonpressured. Mood/Affect: Patient reports their mood is "aright", affect is congruent and constricted Suicidality/Homicidality: Patient denies having any suicidal or homicidal ideation intent or plan. Perceptions: Patient denies any visual hallucinations and denies any auditory hallucinations Though content/process: Positive content, concrete. No delusions. Future oriented. Memory and concentration: AOX3, grossly intact for the purposes of this session. 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 PLAN: -At this time patient does not meet criteria for inpatient psychiatric hospitalization. -Would recommend the following medication changes/additions: Continue with Prozac to 20 mg daily for mood/anxiety. trazodone 100 mg daily at bedtime when necessary for sleep. We'll hold off on lithium at this time due to the stress on patient's kidneys. -Evaluation Manager spoke with patient about substance abuse and the harmful effects on medical and mental health, patient verbally understood and agreed. -Communicated plan to patient's nurse -At this time psychiatry will sign off. -Please contact with any questions
[2021-08-14 13:51] VITALS: BMI 20.6
[2021-08-14] MEDS: D5-0.45% NACL WITH KCL 20MEQ/L 1,000 ML IV SCH (15:43)
[2021-08-14 17:14] LABS: Glucose,Whole Blood 155 mg/dL (75-99)
--- NOTE | 2021-08-14 23:21 | DS ---
DISCHARGE SUMMARY CHIEF COMPLAINT: DKA. HISTORY OF PRESENT ILLNESS AND PHYSICAL EXAMINATION: Details of this man's history and physical can be found in the initial workup. LABORATORY STUDIES: While he was in the hospital he had laboratory studies, details of which can be found in the laboratory section of his chart. COURSE IN THE HOSPITAL: After admission he was placed on bedrest, started on intravenous fluids and DKA protocol. Gap was closed. He started back on his usual home medications and his blood sugars were good, but he went into further episodes of nausea and vomiting. He was improving and he signed out AGAINST MEDICAL ADVICE on the afternoon of 08/14/2021. FINAL DIAGNOSIS: 1. Diabetic ketoacidosis. 2. Uncontrolled type 1 insulin-dependent diabetes mellitus. 3. Major depression. 4. Chronic alcoholism. 5. Dehydration. OPERATIONS: None. CONSULTATIONS: None. He is improved. GRACE / ALDEN: [id number] /
[2021-08-15] MEDS ORDERED: PANTOPRAZOLE 40 MG TABLET PO SCH (07:30)
== END 2021-08-14 16:25 | disposition left against medical advice (07) ==
LOC: EC 21:21 → INTOOBSV 23:23 → 3SCARD 23:23 → 5NMEDONC 08-13 14:51 → UNDODISIN 08-14 16:25
PROVIDERS: ADMIT Family Medicine; ATTEND Family Medicine
DX: E10.10 Type 1 diabetes mellitus with ketoacidosis without coma (principal); E86.0 Dehydration; F12.20 Cannabis dependence, uncomplicated; F10.20 Alcohol dependence, uncomplicated; F32.A Depression, unspecified; F41.9 Anxiety disorder, unspecified; E10.42 Type 1 diabetes mellitus with diabetic polyneuropathy; G62.9 Polyneuropathy, unspecified; J45.909 Unspecified asthma, uncomplicated; L30.9 Dermatitis, unspecified; F60.3 Borderline personality disorder; R00.0 Tachycardia, unspecified; S60.419A Abrasion of unspecified finger, initial encounter; W22.8XXA Striking against or struck by other objects, initial encounter; Z91.19 Patient's noncompliance with other medical treatment and regimen; Z53.29 Procedure and treatment not carried out because of patient's decision for other reasons; Z87.891 Personal history of nicotine dependence; Z79.4 Long term (current) use of insulin; Z79.899 Other long term (current) drug therapy; Z82.3 Family history of stroke; Z82.49 Family history of ischemic heart disease and other diseases of the circulatory system; Z83.438 Family history of other disorder of lipoprotein metabolism and other lipidemia
CPT/HCPCS: 96376 ×3; 96365; 96366 ×2; 96375 ×2; 96361 ×2; 99291; 36415; 93005 ×2; 83880; 80051; 80053 ×2; 80048; 82565; 82009; 83735 ×2; 84100 ×2; 82947; 84520; 84484; 85025 ×2; 85027; 85610; 85730; 81003; G0378 ×4; G0480; J2270; J2765; J2405 ×3; C9113 ×3; 80320; 96374

== ENCOUNTER 2021-09-19 15:55 | Inpatient (IN) | payer OTHER ==
[2021-09-19] MEDS ORDERED: SODIUM CHLORIDE 0.9% 3,000 ML IV STA (16:08)
--- NOTE | 2021-09-19 16:09 | ED ---
General Adult HPI - General Chief complaint: Nausea/Vomiting/Diarrhea Stated complaint: AMS Time Seen by Provider: 09/19/21 15:58 Source: EMS Mode of arrival: EMS Limitations: altered mental status - History of Present Illness Initial comments: Dictation was produced using Framebench dictation software. please excuse any grammatical, word or spelling errors. Chief Complaint: 26-year-old now presents emergency department for DKA. History of Present Illness: Patient 26-year-old male he is a type 1 insulin- dependent diabetic. Patient is well-known to emergency department for multiple diabetic issues. Patient states he has not been compliant with his insulin medications recently. States that he believes that he became again. Patient is brought in by EMS. Patient has been vomiting for the last couple days. Patient has no pain complaints. Patient is a poor historian due to lethargy. EMS reports that patient's heart rate was elevated. They checked her sugar is 5 in the upper 300s. The ROS documented in this emergency department record has been reviewed and confirmed by me. Those systems with pertinent positive or negative responses have been documented in the HPI. All other systems are other negative and/or noncontributory. PHYSICAL EXAM: General Impression: Alert and oriented x3, not in acute distress, smells of acetone, coos most breathing HEENT: Normocephalic atraumatic, extra-ocular movements intact, pupils equal and reactive to light bilaterally, mucous membranes moist. Cardiovascular: Heart regular rate and rhythm Chest: Able to complete full sentences, no retractions, no tachypnea Abdomen: abdomen soft, non-tender, non-distended, no organomegaly Musculoskeletal: Pulses present and equal in all extremities, no peripheral edema Motor: no focal deficits noted Neurological: CN II-XII grossly intact, no focal motor or sensory deficits noted Skin: Intact with no visualized rashes Psych: Normal affect and mood ED course: 26-year-old male with extensive history of diabetes and insulin related issues presents to the ER for clinical presentation of diabetic ketoacidosis. Vital signs upon arrival shows heart rate of 135, rest of vital signs within acceptable limits. Return evaluation obtained. Leukocytosis 27.2 likely secondary to stress leukocytosis. Coag panel is negative. Venous blood gas shows pH is 7.19. Metabolic panel shows bicarb of 10 with a 32. Glucose is 610. Tox labs are negative. Rest of labs are within acceptable limits. Patient started on insulin drip. Given multiple boluses of IV fluids. Patient will be admitted to ICU for DKA care. EKG interpretation: Ventricular rate 132, sinus tachycardia, [place] interval 130, QRS 92, QTc 386. No [place] prolongation, no QTC prolongation, no ST or T-wave changes noted. Overall, this EKG is unremarkable - Related Data Home Medications Medication Instructions Recorded Confirmed Insulin Detemir (Levemir) [Levemir] 25 unit SQ DAILY 08/27/20 09/19/21 Sildenafil Citrate 20 - 100 mg PO DAILY PRN 05/02/21 09/19/21 Ergocalciferol [Vitamin D2 (1250 1,250 mcg PO Q30D 06/29/21 09/19/21 Mcg = 28221 Iu)] Gabapentin 600 mg PO TID PRN 06/29/21 09/19/21 INSULIN ASPART (NovoLOG) [NovoLOG 6 unit SQ HS 06/29/21 09/19/21 (formulary)] INSULIN ASPART (NovoLOG) [NovoLOG 10 unit SQ AC-TID 06/29/21 09/19/21 (formulary)] Ibuprofen [Motrin] 800 mg PO QID PRN 06/29/21 09/19/21 FLUoxetine HCL [PROzac] 40 mg PO DIRECTED 08/07/21 09/19/21 traZODone HCL 300 mg PO DIRECTED 08/07/21 09/19/21 hydrOXYzine pamoate [Vistaril] 50 mg PO DIRECTED 08/12/21 09/19/21 Steptoe Carbonate 150 mg PO DIRECTED 09/19/21 09/19/21 Allergies Allergy/AdvReac Type Severity Reaction Status Date / Time No Known Allergies Allergy Verified 09/19/21 17:14 Review of Systems ROS Statement: Those systems with pertinent positive or pertinent negative responses have been documented in the HPI. ROS Other: All systems not noted in ROS Statement are negative. Past Medical History Past Medical History: Asthma, Diabetes Mellitus, Skin Disorder Additional Past Medical History / Comment(s): IDDM type I, neuropathy bilateral feet, DKA, eczema. History of Any Multi-Drug Resistant Organisms: None Reported Past Surgical History: Adenoidectomy Additional Past Surgical History / Comment(s): 2002 Past Anesthesia/Blood Transfusion Reactions: No Reported Reaction Past Psychological History: Anxiety, Depression Smoking Status: Former smoker, Vaper - Past Family History Mother Family Medical History: CVA/TIA Additional Family Medical History / Comment(s): TIA Father Family Medical History: Hyperlipidemia, Hypertension Additional Family Medical History / Comment(s): . General Exam Limitations: altered mental status Course Vital Signs 09/19/21 09/19/21 09/19/21 15:58 16:13 17:30 Temperature 97.3 F L Pulse Rate 135 H 133 H 125 H Respiratory 12 20 18 Rate Blood Pressure 133/88 128/80 131/94 O2 Sat by Pulse 99 98 99 Oximetry Medical Decision Making - Lab Data Result diagrams: 09/19/21 16:09 09/19/21 16:09 Lab Results 09/19/21 09/19/21 09/19/21 Range/Units 16:06 16:09 16:09 WBC 27.2 H (3.8-10.6) k/uL RBC 5.20 (4.30-5.90) m/uL Hgb 17.1 (13.0-17.5) gm/dL Hct 50.8 (39.0-53.0) % MCV 97.7 (80.0-100.0) fL MCH 32.9 (25.0-35.0) pg MCHC 33.7 (31.0-37.0) g/dL RDW 13.3 (11.5-15.5) % Plt Count 413 (150-450) k/uL MPV 7.5 Neutrophils % 88 % Lymphocytes % 6 % Monocytes % 4 % Eosinophils % 0 % Basophils % 0 % Neutrophils # 24.0 H (1.3-7.7) k/uL Lymphocytes # 1.7 (1.0-4.8) k/uL Monocytes # 1.2 H (0-1.0) k/uL Eosinophils # 0.1 (0-0.7) k/uL Basophils # 0.0 (0-0.2) k/uL PT 10.4 (9.0-12.0) sec INR 1.0 (<1.2) APTT 23.4 (22.0-30.0) sec VBG pH (7.31-7.41) VBG pCO2 (37-51) mmHg VBG HCO3 (24-28) mmol/L Sodium (137-145) mmol/L Potassium (3.5-5.1) mmol/L Chloride (98-107) mmol/L Carbon Dioxide (22-30) mmol/L Anion Gap mmol/L BUN (9-20) mg/dL Creatinine (0.66-1.25) mg/dL Est GFR (CKD-EPI)AfAm (>60 ml/min/1.73 sqM) Est GFR (CKD-EPI)NonAf (>60 ml/min/1.73 sqM) Glucose (74-99) mg/dL POC Glucose (mg/dL) 563 H (75-99) mg/dL POC Glu Station Cook ID Fetterly, Rosy Plasma Lactic Acid Len (0.7-2.0) mmol/L Calcium (8.4-10.2) mg/dL Phosphorus (2.5-4.5) mg/dL Magnesium (1.6-2.3) mg/dL Total Bilirubin (0.2-1.3) mg/dL AST (17-59) U/L ALT (4-49) U/L Alkaline Phosphatase (38-126) U/L Ammonia (<30) umol/L Total Protein (6.3-8.2) g/dL Albumin (3.5-5.0) g/dL Urine Color Urine Appearance (Clear) Urine pH (5.0-8.0) Ur Specific [place] (1.001-1.035) Urine Protein (Negative) Urine Glucose (UA) (Negative) Urine Ketones (Negative) Urine Blood (Negative) Urine Nitrite (Negative) Urine Bilirubin (Negative) Urine Urobilinogen (<2.0) mg/dL Ur Leukocyte Esterase (Negative) Salicylates mg/dL Acetaminophen ug/mL Steptoe mmol/L Serum Alcohol mg/dL 09/19/21 09/19/21 09/19/21 Range/Units 16:09 16:09 16:09 WBC (3.8-10.6) k/uL RBC (4.30-5.90) m/uL Hgb (13.0-17.5) gm/dL Hct (39.0-53.0) % MCV (80.0-100.0) fL MCH (25.0-35.0) pg MCHC (31.0-37.0) g/dL RDW (11.5-15.5) % Plt Count (150-450) k/uL MPV Neutrophils % % Lymphocytes % % Monocytes % % Eosinophils % % Basophils % % Neutrophils # (1.3-7.7) k/uL Lymphocytes # (1.0-4.8) k/uL Monocytes # (0-1.0) k/uL Eosinophils # (0-0.7) k/uL Basophils # (0-0.2) k/uL PT (9.0-12.0) sec INR (<1.2) APTT (22.0-30.0) sec VBG pH (7.31-7.41) VBG pCO2 (37-51) mmHg VBG HCO3 (24-28) mmol/L Sodium 144 (137-145) mmol/L Potassium 5.4 H (3.5-5.1) mmol/L Chloride 102 (98-107) mmol/L Carbon Dioxide 10 L (22-30) mmol/L Anion Gap 32 mmol/L BUN 32 H (9-20) mg/dL Creatinine 1.68 H (0.66-1.25) mg/dL Est GFR (CKD-EPI)AfAm 65 (>60 ml/min/1.73 sqM) Est GFR (CKD-EPI)NonAf 56 (>60 ml/min/1.73 sqM) Glucose 610 H* (74-99) mg/dL POC Glucose (mg/dL) (75-99) mg/dL POC Glu Station Cook ID Plasma Lactic Acid Len 3.4 H* (0.7-2.0) mmol/L Calcium 9.7 (8.4-10.2) mg/dL Phosphorus 6.9 H (2.5-4.5) mg/dL Magnesium 2.4 H (1.6-2.3) mg/dL Total Bilirubin 0.8 (0.2-1.3) mg/dL AST 17 (17-59) U/L ALT 19 (4-49) U/L Alkaline Phosphatase 107 (38-126) U/L Ammonia <9 (<30) umol/L Total Protein 8.3 H (6.3-8.2) g/dL Albumin 5.5 H (3.5-5.0) g/dL Urine Color Light Yellow Urine Appearance Clear (Clear) Urine pH 5.0 (5.0-8.0) Ur Specific [place] 1.026 (1.001-1.035) Urine Protein Trace H (Negative) Urine Glucose (UA) 4+ H (Negative) Urine Ketones 4+ H (Negative) Urine Blood Negative (Negative) Urine Nitrite Negative (Negative) Urine Bilirubin Negative (Negative) Urine Urobilinogen <2.0 (<2.0) mg/dL Ur Leukocyte Esterase Negative (Negative) Salicylates <1.0 mg/dL Acetaminophen <10.0 ug/mL Steptoe <0.2 mmol/L Serum Alcohol <10 mg/dL 09/19/21 09/19/21 Range/Units 16:09 17:27 WBC (3.8-10.6) k/uL RBC (4.30-5.90) m/uL Hgb (13.0-17.5) gm/dL Hct (39.0-53.0) % MCV (80.0-100.0) fL MCH (25.0-35.0) pg MCHC (31.0-37.0) g/dL RDW (11.5-15.5) % Plt Count (150-450) k/uL MPV Neutrophils % % Lymphocytes % % Monocytes % % Eosinophils % % Basophils % % Neutrophils # (1.3-7.7) k/uL Lymphocytes # (1.0-4.8) k/uL Monocytes # (0-1.0) k/uL Eosinophils # (0-0.7) k/uL Basophils # (0-0.2) k/uL PT (9.0-12.0) sec INR (<1.2) APTT (22.0-30.0) sec VBG pH 7.19 L* (7.31-7.41) VBG pCO2 29 L (37-51) mmHg VBG HCO3 11 L (24-28) mmol/L Sodium (137-145) mmol/L Potassium (3.5-5.1) mmol/L Chloride (98-107) mmol/L Carbon Dioxide (22-30) mmol/L Anion Gap mmol/L BUN (9-20) mg/dL Creatinine (0.66-1.25) mg/dL Est GFR (CKD-EPI)AfAm (>60 ml/min/1.73 sqM) Est GFR (CKD-EPI)NonAf (>60 ml/min/1.73 sqM) Glucose (74-99) mg/dL POC Glucose (mg/dL) 487 H (75-99) mg/dL POC Glu Station Cook ID Eran Harrison Plasma Lactic Acid Len (0.7-2.0) mmol/L Calcium (8.4-10.2) mg/dL Phosphorus (2.5-4.5) mg/dL Magnesium (1.6-2.3) mg/dL Total Bilirubin (0.2-1.3) mg/dL AST (17-59) U/L ALT (4-49) U/L Alkaline Phosphatase (38-126) U/L Ammonia (<30) umol/L Total Protein (6.3-8.2) g/dL Albumin (3.5-5.0) g/dL Urine Color Urine Appearance (Clear) Urine pH (5.0-8.0) Ur Specific [place] (1.001-1.035) Urine Protein (Negative) Urine Glucose (UA) (Negative) Urine Ketones (Negative) Urine Blood (Negative) Urine Nitrite (Negative) Urine Bilirubin (Negative) Urine Urobilinogen (<2.0) mg/dL Ur Leukocyte Esterase (Negative) Salicylates mg/dL Acetaminophen ug/mL Steptoe mmol/L Serum Alcohol mg/dL Critical Care Time Critical Care Time: Yes Total Critical Care Time: 33 Disposition Clinical Impression: DKA (diabetic ketoacidosis) Disposition: ADMITTED IP TO THIS [facility] Condition: Critical Referrals: Brown Valenzuela MD [Primary Care Provider] - 1-2 days Decision Time: 17:59
[2021-09-19 16:13] LABS: Glucose,Whole Blood 563 mg/dL (75-99)
[2021-09-19 16:23] LABS: Basophils % (A) 0 %; Eosinophils # (A) 0.1 k/uL (0-0.7); Eosinophils % (A) 0 %; HCT 50.8 % (39.0-53.0); HGB 17.1 gm/dL (13.0-17.5); Lymphocytes # (A) 1.7 k/uL (1.0-4.8); Lymphocytes % (A) 6 %; MCH 32.9 pg (25.0-35.0); MCHC 33.7 g/dL (31.0-37.0); MCV 97.7 fL (80.0-100.0); Mean Platelet Volume 7.5; Monocytes # (A) 1.2 k/uL (0-1.0); Monocytes % (A) 4 %; Neutrophils % (A) 88 %; Platelet Count 413 k/uL (150-450); RDW 13.3 % (11.5-15.5); WBC 27.2 k/uL (3.8-10.6)
[2021-09-19 16:35] LABS: ALT 19 U/L (4-49); AST 17 U/L (17-59); Acetaminophen <10.0 ug/mL; African American GFR (CKD) 65 (>60 ml/min/1.73 sqM); Albumin 5.5 g/dL (3.5-5.0); Alcohol <10 mg/dL; Alkaline Phosphatase 107 U/L (38-126); Anion Gap 32 mmol/L; Blood Urea Nitrogen 32 mg/dL (9-20); Calcium 9.7 mg/dL (8.4-10.2); Carbon Dioxide 10 mmol/L (22-30); Chloride 102 mmol/L (98-107); Lithium <0.2 mmol/L; Magnesium 2.4 mg/dL (1.6-2.3); Non-African American GFR(CKD) 56 (>60 ml/min/1.73 sqM); Phosphorus 6.9 mg/dL (2.5-4.5); Potassium 5.4 mmol/L (3.5-5.1); Salicylate <1.0 mg/dL; Sodium 144 mmol/L (137-145); Total Bilirubin 0.8 mg/dL (0.2-1.3); Total Protein 8.3 g/dL (6.3-8.2)
[2021-09-19 16:46] LABS: Partial Thromboplastin Time 23.4 sec (22.0-30.0); Prothrombin Time 10.4 sec (9.0-12.0)
[2021-09-19 16:48] LABS: Glucose 610 mg/dL (74-99); Lactic Acid, Venous 3.4 mmol/L (0.7-2.0)
[2021-09-19 17:03] LABS: VBG PH 7.19 (7.31-7.41)
[2021-09-19] MEDS ORDERED: Potassium Replacement Protocol 1 EACH MISC MISCELLANE PRN (17:08)
[2021-09-19] MEDS ORDERED: INSULIN REGULAR BOLUS (FROM DRIP BAG) IV ONE (17:08)
[2021-09-19] MEDS ORDERED: Magnesium Replacement Protocol 1 EACH MISC MISCELLANE PRN (17:08)
[2021-09-19 17:29] LABS: Glucose,Whole Blood 487 mg/dL (75-99)
[2021-09-19] MEDS: SODIUM CHLORIDE 0.9% 1,000 ML IV SCH ×2 (17:42→22:30)
[2021-09-19] MEDS: INSULIN REGULAR 100 UNIT in SODIUM CHLORIDE 0.9% 100 ML IV SCH (17:47)
[2021-09-19 17:51] LABS: Appearance,Urine Clear (Clear); Bilirubin,Urine Negative (Negative); Blood,Urine Negative (Negative); Color,Urine Light Yellow; Glucose,Urine (UA) 4+ (Negative); Leukocyte Esterase,Urine Negative (Negative); Nitrite,Urine Negative (Negative); Protein,Urine Trace (Negative); Specific Gravity,Urine 1.026 (1.001-1.035); Urobilinogen,Urine <2.0 mg/dL (<2.0)
[2021-09-19 17:55] LABS: Ketones,Urine 4+ (Negative)
[2021-09-19] MEDS ORDERED: NALOXONE 0.4 MG/ML 1 ML VIAL IV PRN (17:56)
--- NOTE | 2021-09-19 18:52 | HP ---
HISTORY AND PHYSICAL CHIEF COMPLAINT: Diabetic ketoacidosis. HISTORY OF PRESENT ILLNESS: This is another of many admissions for this young man who has type 1 diabetes mellitus, becomes depressed, and stops taking his insulin. He also has an alcohol problem. He has not been in the hospital for roughly a month, but came in with a blood sugar of 600, anion gap of 30 and a bicarb of 10. He denies wanting to kill himself. He presented some months ago stating that he had tried to commit suicide with insulin overdose. REVIEW OF SYSTEMS: He has had no headaches, change in vision or hearing, chest pain, shortness of breath, abdominal pain, hematemesis, melena, hematochezia, jaundice, hematuria, frequency, urgency, dysuria, etc. Past medical history, family history, personal and social histories are all otherwise unremarkable or non-contributory and unchanged. PHYSICAL EXAMINATION: Blood pressure is 128/60 with a pulse of 112, respirations of 37, and he is afebrile. In general he appears to be tall, slender, somewhat disheveled and depressed. Skin is dry. Head, ears, eyes, nose, mouth and throat are normal except for mucous membranes, which are dry. Neck veins are not distended. The chest is clear. The cardiac exam is normal with sinus tachycardia. The abdomen is soft and nontender. Extremities are normal. Neurologically he is intact. IMPRESSION: 1. Diabetic ketoacidosis. 2. Dehydration. 3. Depression. 4. Type 1 insulin-dependent diabetes mellitus. PLAN: 1. Bedrest. 2. IV fluids. 3. DKA protocol. MMODL / IJN: [id number] /
[2021-09-19 18:56] LABS: Glucose,Whole Blood 428 mg/dL (75-99)
[2021-09-19 19:27] LABS: Glucose,Whole Blood 329 mg/dL (75-99)
--- NOTE | 2021-09-19 20:09 | P.CNPUL ---
History of Present Illness Consult date: 09/19/21 Chief complaint: Hyperglycemia History of present illness: 26-year-old male patient, type I diabetic came into the MRSA problem because of DKA. The patient is supposed to be on Levemir insulin 25 units daily along with NovoLog 10 units with meals and 6 units at bedtime plus a sliding scale coverage. The patient has had poor compliancy with insulin therapy. His blood sugars have been running high. He developed nausea and emesis for a few days. He arrived to the ED quite lethargic, tachycardic and his blood sugar was quite elevated. Blood work showed a white cell count of 27.2 with a hemoglobin of 17.1. Initial blood sugar her lab was 610 and the patient a mean of 32 with a creatinine of 1.68 and a serum bicarb of 10 and elevated anion gap of 32. Magnesium was at 2.4, calcium was at 9.7, lactic acid level was at 3.4, ammonia level was less than 9, total protein was 8.3 with an albumin level of 5.5. UA was positive for +4 acute tones and glucose. Salicylates, acetaminophen, and alcohol levels were all negative. The venous blood gas showed a pH of 7.19. The patient was given a total of 3 L of IV fluids in the emergency. The patient was started on an insulin drip. The patient will be admitted to the intensive care unit. . Mother the patient has history of psychiatric disorder including depression, borderline personality disorder and he has also cannabis use disorder along with sedative hypnotic medication abuse disorder. During the recent hospitalization at the psychiatry unit, the patient was kept on a combi nation of Prozac and trazodone and he was taken off the lithium. Note that I have taken care of this patient back in November 2020 when he came in with intentional drug overdose. Review of Systems Constitutional: Reports fatigue, Reports lethargy, Reports poor appetite, Reports weakness Eyes: denies as per HPI, denies blurred vision, denies bulging eye, denies decreased vision, denies diplopia, denies discharge, denies dry eye, denies irritation, denies itching, denies pain, denies photophobia, denies loss of peripheral vision, denies loss of vision, denies tunnel vision/blind spots Ears: deny: decreased hearing, ear discharge, earache, tinnitus Ears, nose, mouth and throat: Reports as per HPI Breasts: absent: as per HPI, gynecomastia Cardiovascular: Reports as per HPI Respiratory: Reports as per HPI Gastrointestinal: Reports nausea, Reports vomiting Genitourinary: Reports as per HPI Musculoskeletal: Reports as per HPI, Reports fractures Musculoskeletal: absent: ankle pain, ankle stiffness, ankle swelling Integumentary: Reports as per HPI Neurological: Reports as per HPI, Reports weakness Psychiatric: Reports depression, Reports suicidal ideation Endocrine: Reports as per HPI, has poorly controled BS and DM1 Hematologic/Lymphatic: Reports as per HPI Allergic/Immunologic: Reports as per HPI Past Medical History Past Medical History: Asthma, Diabetes Mellitus, Skin Disorder Additional Past Medical History / Comment(s): IDDM type I, neuropathy bilateral feet, DKA, eczema. History of Any Multi-Drug Resistant Organisms: None Reported Past Surgical History: Adenoidectomy Additional Past Surgical History / Comment(s): 2002 Past Anesthesia/Blood Transfusion Reactions: No Reported Reaction Past Psychological History: Anxiety, Depression Smoking Status: Former smoker, Vaper - Past Family History Mother Family Medical History: CVA/TIA Additional Family Medical History / Comment(s): TIA Father Family Medical History: Hyperlipidemia, Hypertension Additional Family Medical History / Comment(s): . Medications and Allergies Home Medications Medication Instructions Recorded Confirmed Type Insulin Detemir (Levemir) [Levemir] 25 unit SQ DAILY 08/27/20 09/19/21 History Sildenafil Citrate 20 - 100 mg PO DAILY PRN 05/02/21 09/19/21 History Ergocalciferol [Vitamin D2 (1250 1,250 mcg PO Q30D 06/29/21 09/19/21 History Mcg = 39683 Iu)] Gabapentin 600 mg PO TID PRN 06/29/21 09/19/21 History INSULIN ASPART (NovoLOG) [NovoLOG 6 unit SQ HS 06/29/21 09/19/21 History (formulary)] INSULIN ASPART (NovoLOG) [NovoLOG 10 unit SQ AC-TID 06/29/21 09/19/21 History (formulary)] Ibuprofen [Motrin] 800 mg PO QID PRN 06/29/21 09/19/21 History FLUoxetine HCL [PROzac] 40 mg PO DIRECTED 08/07/21 09/19/21 History traZODone HCL 300 mg PO DIRECTED 08/07/21 09/19/21 History hydrOXYzine pamoate [Vistaril] 50 mg PO DIRECTED 08/12/21 09/19/21 History [place] Carbonate 150 mg PO DIRECTED 09/19/21 09/19/21 History Allergies Allergy/AdvReac Type Severity Reaction Status Date / Time No Known Allergies Allergy Verified 09/19/21 17:14 Physical Exam Vitals: Vital Signs Temp Pulse Resp BP Pulse Ox 09/19/21 19:12 126 H 20 121/82 98 09/19/21 19:03 55 L 16 110/60 95 09/19/21 18:55 126 H 16 118/88 99 09/19/21 17:30 125 H 18 131/94 99 09/19/21 16:13 133 H 20 128/80 98 09/19/21 15:58 97.3 F L 135 H 12 133/88 99 Intake and Output 09/19/21 09/19/21 09/19/21 06:59 14:59 22:59 Intake Total 12.095 Balance 12.095 Intake: Intake, IV Titration 12.095 Amount Insulin Regular 100 unit 12.095 In Sodium Chloride 0.9% 100 ml @ 0.1 UNITS/KG/HR 7.33 mls/hr IV .[id number] [facility] Rx#:[id number] Other: Weight 72.575 kg The patient appeared well nourished and normally developed. Vital signs as documented. Head exam is unremarkable. No scleral icterus or corneal arcus noted. Neck is without jugular venous distension, thyromegaly, or carotid bruits. Carotid upstrokes are brisk bilaterally. Lungs are clear to auscultation and percussion. Cardiac exam reveals the PMI to be normally sized and situated. Rhythm is regular. First and second heart sounds normal. No murmurs, rubs or gallops. Abdominal exam reveals normal bowel sounds, no masses, no organomegaly and no aortic enlargement. Extremities are nonedematous and both femoral and pedal pulses are normal.Examination of the skin revealed no evidence of significant rashes, suspicious appearing nevi or other concerning lesions. Neurologically the patient is lethargic yet arousable. Moving all 4 extremities without any focal neurological deficit. He is a bit uncooperative with examination. He is able to follow simple commands. He is able to communicate. Results - Laboratory Findings CBC and BMP: 09/19/21 16:09 09/19/21 16:09 ABG WBC 27.2 k/uL (3.8-10.6) H 09/19/21 16:09 RBC 5.20 m/uL (4.30-5.90) 09/19/21 16:09 Hgb 17.1 gm/dL (13.0-17.5) 09/19/21 16:09 Hct 50.8 % (39.0-53.0) 09/19/21 16:09 MCV 97.7 fL (80.0-100.0) 09/19/21 16:09 MCH 32.9 pg (25.0-35.0) 09/19/21 16:09 MCHC 33.7 g/dL (31.0-37.0) 09/19/21 16:09 RDW 13.3 % (11.5-15.5) 09/19/21 16:09 Plt Count 413 k/uL (150-450) 09/19/21 16:09 MPV 7.5 09/19/21 16:09 Neutrophils % 88 % 09/19/21 16:09 Lymphocytes % 6 % 09/19/21 16:09 Monocytes % 4 % 09/19/21 16:09 Eosinophils % 0 % 09/19/21 16:09 Basophils % 0 % 09/19/21 16:09 Neutrophils # 24.0 k/uL (1.3-7.7) H 09/19/21 16:09 Lymphocytes # 1.7 k/uL (1.0-4.8) 09/19/21 16:09 Monocytes # 1.2 k/uL (0-1.0) H 09/19/21 16:09 Eosinophils # 0.1 k/uL (0-0.7) 09/19/21 16:09 Basophils # 0.0 k/uL (0-0.2) 09/19/21 16:09 PT 10.4 sec (9.0-12.0) 09/19/21 16:09 INR 1.0 (<1.2) 09/19/21 16:09 APTT 23.4 sec (22.0-30.0) 09/19/21 16:09 VBG pH 7.19 (7.31-7.41) L* 09/19/21 16:09 VBG pCO2 29 mmHg (37-51) L 09/19/21 16:09 VBG HCO3 11 mmol/L (24-28) L 09/19/21 16:09 Sodium 144 mmol/L (137-145) 09/19/21 16:09 Potassium 5.4 mmol/L (3.5-5.1) H 09/19/21 16:09 Chloride 102 mmol/L (98-107) 09/19/21 16:09 Carbon Dioxide 10 mmol/L (22-30) L 09/19/21 16:09 Anion Gap 32 mmol/L 09/19/21 16:09 BUN 32 mg/dL (9-20) H 09/19/21 16:09 Creatinine 1.68 mg/dL (0.66-1.25) H 09/19/21 16:09 Est GFR (CKD-EPI)AfAm 65 (>60 ml/min/1.73 sqM) 09/19/21 16:09 Est GFR (CKD-EPI)NonAf 56 (>60 ml/min/1.73 sqM) 09/19/21 16:09 Glucose 610 mg/dL (74-99) H* 09/19/21 16:09 POC Glucose (mg/dL) 329 mg/dL (75-99) H 09/19/21 19:24 POC Glu Consulting Senior Practice Director ID Ignacia Ontiveros 09/19/21 19:24 Lactic Ac Sepsis Rflx Y 09/19/21 16:48 Plasma Lactic Acid Len 3.4 mmol/L (0.7-2.0) H* 09/19/21 16:09 Calcium 9.7 mg/dL (8.4-10.2) 09/19/21 16:09 Phosphorus 6.9 mg/dL (2.5-4.5) H 09/19/21 16:09 Magnesium 2.4 mg/dL (1.6-2.3) H 09/19/21 16:09 Total Bilirubin 0.8 mg/dL (0.2-1.3) 09/19/21 16:09 AST 17 U/L (17-59) 09/19/21 16:09 ALT 19 U/L (4-49) 09/19/21 16:09 Alkaline Phosphatase 107 U/L (38-126) 09/19/21 16:09 Ammonia <9 umol/L (<30) 09/19/21 16:09 Total Protein 8.3 g/dL (6.3-8.2) H 09/19/21 16:09 Albumin 5.5 g/dL (3.5-5.0) H 09/19/21 16:09 Urine Color Light Yellow 09/19/21 16:09 Urine Appearance Clear (Clear) 09/19/21 16:09 Urine pH 5.0 (5.0-8.0) 09/19/21 16:09 Ur Specific [place] 1.026 (1.001-1.035) 09/19/21 16:09 Urine Protein Trace (Negative) H 09/19/21 16:09 Urine Glucose (UA) 4+ (Negative) H 09/19/21 16:09 Urine Ketones 4+ (Negative) H 09/19/21 16:09 Urine Blood Negative (Negative) 09/19/21 16:09 Urine Nitrite Negative (Negative) 09/19/21 16:09 Urine Bilirubin Negative (Negative) 09/19/21 16:09 Urine Urobilinogen <2.0 mg/dL (<2.0) 09/19/21 16:09 Ur Leukocyte Esterase Negative (Negative) 09/19/21 16:09 Salicylates <1.0 mg/dL 09/19/21 16:09 Acetaminophen <10.0 ug/mL 09/19/21 16:09 [place] <0.2 mmol/L 09/19/21 16:09 Serum Alcohol <10 mg/dL 09/19/21 16:09 PT/INR, D-dimer PT 10.4 sec (9.0-12.0) 09/19/21 16:09 INR 1.0 (<1.2) 09/19/21 16:09 Abnormal lab findings: Abnormal Labs 09/19/21 09/19/21 09/19/21 16:06 16:09 16:09 WBC 27.2 H Neutrophils # 24.0 H Monocytes # 1.2 H VBG pH VBG pCO2 VBG HCO3 Potassium Carbon Dioxide BUN Creatinine Glucose POC Glucose (mg/dL) 563 H Plasma Lactic Acid Len Phosphorus Magnesium Total Protein Albumin Urine Protein Trace H Urine Glucose (UA) 4+ H Urine Ketones 4+ H 09/19/21 09/19/21 09/19/21 16:09 16:09 16:09 WBC Neutrophils # Monocytes # VBG pH 7.19 L* VBG pCO2 29 L VBG HCO3 11 L Potassium 5.4 H Carbon Dioxide 10 L BUN 32 H Creatinine 1.68 H Glucose 610 H* POC Glucose (mg/dL) Plasma Lactic Acid Len 3.4 H* Phosphorus 6.9 H Magnesium 2.4 H Total Protein 8.3 H Albumin 5.5 H Urine Protein Urine Glucose (UA) Urine Ketones 09/19/21 09/19/21 09/19/21 17:27 18:54 19:24 WBC Neutrophils # Monocytes # VBG pH VBG pCO2 VBG HCO3 Potassium Carbon Dioxide BUN Creatinine Glucose POC Glucose (mg/dL) 487 H 428 H 329 H Plasma Lactic Acid Len Phosphorus Magnesium Total Protein Albumin Urine Protein Urine Glucose (UA) Urine Ketones Assessment and Plan Plan: DKA Anion gap metabolic acidosis and hyperglycemia secondary to above Acute leukocytosis, likely reactive. Sinus tachycardia secondary to above Previous history of drug overdose, mainly in the form of sedative hypnotic medication intake Type I diabetes mellitus previous history of DKA peripheral neuropathy history of multiple psychiatric hospitalizations/suicidal attempts nausea and emesis secondary to above Chronic insomnia Plan Insulin drip per protocol Continue IV fluids and the patient will receive a total of 3 L bolus Hourly blood sugar monitoring Electrolytes every 4 hours including management of anion gap Admit this patient to the intensive care unit [facility] for nausea We will likely transfer out of the ICU in the next 24 hours. However the patient is high risk for readmission mostly because of noncompliance,
[2021-09-19 20:27] LABS: Glucose,Whole Blood 270 mg/dL (75-99)
[2021-09-19] MEDS: D5-0.45% NACL WITH KCL 20MEQ/L 1,000 ML IV SCH (20:42)
[2021-09-19 21:16] LABS: African American GFR (CKD) >90 (>60 ml/min/1.73 sqM); Anion Gap 12 mmol/L; Blood Urea Nitrogen 28 mg/dL (9-20); Carbon Dioxide 19 mmol/L (22-30); Chloride 118 mmol/L (98-107); Glucose 252 mg/dL (74-99); Non-African American GFR(CKD) >90 (>60 ml/min/1.73 sqM); Potassium 4.4 mmol/L (3.5-5.1); Sodium 149 mmol/L (137-145)
[2021-09-19 21:31] LABS: Glucose,Whole Blood 217 mg/dL (75-99)
[2021-09-19 22:23] LABS: Glucose,Whole Blood 176 mg/dL (75-99)
[2021-09-19 23:32] LABS: Glucose,Whole Blood 134 mg/dL (75-99)
[2021-09-20 00:42] LABS: Glucose,Whole Blood 124 mg/dL (75-99)
[2021-09-20 01:16] LABS: African American GFR (CKD) >90 (>60 ml/min/1.73 sqM); Anion Gap 6 mmol/L; Blood Urea Nitrogen 27 mg/dL (9-20); Carbon Dioxide 25 mmol/L (22-30); Chloride 117 mmol/L (98-107); Glucose 133 mg/dL (74-99); Non-African American GFR(CKD) >90 (>60 ml/min/1.73 sqM); Phosphorus 2.7 mg/dL (2.5-4.5); Potassium 4.4 mmol/L (3.5-5.1); Sodium 148 mmol/L (137-145)
[2021-09-20] MEDS: SODIUM CHLORIDE 0.9% 1,000 ML IV SCH (01:23)
[2021-09-20 02:04] LABS: Glucose,Whole Blood 135 mg/dL (75-99)
[2021-09-20] MEDS: ONDANSETRON 4 MG/2 ML VIAL IVP PRN ×2 (02:28→05:38)
[2021-09-20] MEDS: D5-0.45% NACL WITH KCL 20MEQ/L 1,000 ML IV SCH ×3 (02:40→17:25)
[2021-09-20 03:07] LABS: Glucose,Whole Blood 146 mg/dL (75-99)
[2021-09-20 04:10] LABS: Glucose,Whole Blood 145 mg/dL (75-99)
[2021-09-20 05:04] LABS: Glucose,Whole Blood 152 mg/dL (75-99)
[2021-09-20 06:17] LABS: Glucose,Whole Blood 160 mg/dL (75-99)
[2021-09-20 06:58] LABS: Glucose,Whole Blood 170 mg/dL (75-99)
[2021-09-20] MEDS: INSULIN ASPART (NovoLOG) 100 UNIT/ML VIAL SQ SCH ×7 (07:01→20:49)
[2021-09-20] MEDS: INSULIN DETEMIR (LEVEMIR) 100 UNIT/ML SYR SQ SCH (07:04)
[2021-09-20] MEDS ORDERED: GABAPENTIN 300 MG CAP PO PRN (08:03)
[2021-09-20] MEDS: INSULIN REGULAR 100 UNIT in SODIUM CHLORIDE 0.9% 100 ML IV SCH (08:37)
[2021-09-20 08:42] LABS: HGB 14.9 gm/dL (13.0-17.5); MCH 32.3 pg (25.0-35.0); MCHC 33.8 g/dL (31.0-37.0); MCV 95.6 fL (80.0-100.0); Mean Platelet Volume 6.9; Platelet Count 305 k/uL (150-450); RDW 12.7 % (11.5-15.5); WBC 22.4 k/uL (3.8-10.6)
[2021-09-20] MEDS: FLUoxetine HCL 20 MG CAP PO SCH ×2 (08:45→09:17)
[2021-09-20 08:48] LABS: African American GFR (CKD) >90 (>60 ml/min/1.73 sqM); Anion Gap 9 mmol/L; Blood Urea Nitrogen 24 mg/dL (9-20); Calcium 9.1 mg/dL (8.4-10.2); Carbon Dioxide 25 mmol/L (22-30); Chloride 114 mmol/L (98-107); Glucose 128 mg/dL (74-99); Magnesium 2.2 mg/dL (1.6-2.3); Non-African American GFR(CKD) >90 (>60 ml/min/1.73 sqM); Phosphorus 2.1 mg/dL (2.5-4.5); Potassium 4.2 mmol/L (3.5-5.1); Sodium 148 mmol/L (137-145)
[2021-09-20 10:20] VITALS: BMI 18.3
[2021-09-20] MEDS ORDERED: INSULIN DETEMIR (LEVEMIR) 100 UNIT/ML SYR SQ SCH (10:30)
[2021-09-20 11:48] LABS: Glucose,Whole Blood 110 mg/dL (75-99)
[2021-09-20] MEDS: hydrOXYzine pamoate 25 MG CAP PO SCH ×3 (12:25→23:00)
[2021-09-20] MEDS: LITHIUM CARBONATE 150 MG CAP PO SCH ×2 (12:25→20:50)
[2021-09-20] MEDS: METOCLOPRAMIDE 5 MG/ML 2 ML VIAL IVP PRN ×2 (12:26→20:57)
--- NOTE | 2021-09-20 14:50 | P.PN ---
Subjective Progress Note Date: 09/20/21 26-year-old male patient, type I diabetic came into the MRSA problem because of DKA. The patient is supposed to be on Levemir insulin 25 units daily along with NovoLog 10 units with meals and 6 units at bedtime plus a sliding scale coverage. The patient has had poor compliancy with insulin therapy. His blood sugars have been running high. He developed nausea and emesis for a few days. He arrived to the ED quite lethargic, tachycardic and his blood sugar was quite elevated. Blood work showed a white cell count of 27.2 with a hemoglobin of 17.1. Initial blood sugar her lab was 610 and the patient a mean of 32 with a creatinine of 1.68 and a serum bicarb of 10 and elevated anion gap of 32. Mag nesium was at 2.4, calcium was at 9.7, lactic acid level was at 3.4, ammonia level was less than 9, total protein was 8.3 with an albumin level of 5.5. UA was positive for +4 acute tones and glucose. Salicylates, acetaminophen, and alcohol levels were all negative. The venous blood gas showed a pH of 7.19. The patient was given a total of 3 L of IV fluids in the emergency. The patient was started on an insulin drip. The patient will be admitted to the intensive care unit. . Mother the patient has history of psychiatric disorder including depression, borderline personality disorder and he has also cannabis use disorder along with sedative hypnotic medication abuse disorder. During the recent hospitalization at the psychiatry unit, the patient was kept on a combination of Prozac and trazodone and he was taken off the lithium. Note that I have taken care of this patient back in November 2020 when he came in with intentional drug overdose. 09/20/2021, the patient is awake and alert. Overnight, the patient was treated for DKA and the patient is back to his baseline. He was very nauseous and this morning is feeling better and he thinks that he may be able to tolerate some oral intake. He remains on insulin drip at 1.8 units an hour and the patient is also on D5 half-normal saline at the rate of 125 mL an hour. The patient's sodium level is at 148, chloride is 117, BUN to 37 with a creatinine of 0.9. The patient is adequately resuscitated IV fluids. The sinusTachycardia has recovered. The white cell count is also improving and the white cell count is down to 22.4 and this is likely reactive leukocytosis. No chest pain. No shortness of breath. The patient will be also transitioned to long-acting insulin. Most recent blood sugar is 1 Objective - Vital Signs Vital signs: Vital Signs Temp 97.1 F L 09/20/21 08:00 Pulse 95 09/20/21 08:00 Resp 12 09/20/21 08:00 BP 126/99 09/20/21 08:00 Pulse Ox 97 09/20/21 08:00 Intake & Output 09/19/21 09/20/21 09/20/21 18:59 06:59 18:59 Intake Total 8.796 1364.665 138.534 Output Total 200 Balance 8.796 1164.665 138.534 Weight 66.4 kg 66.4 kg 66.4 kg Intake: IV 1325 125 D5-0.45% NaCl with KCl 1325 125 20Meq/l 1,000 ml @ 125 mls/hr IV .Q8H [facility] Rx#: [id number] Intake, IV Titration 8.796 39.665 13.534 Amount Insulin Regular 100 unit 8.796 39.665 13.534 In Sodium Chloride 0.9% 100 ml @ 0.1 UNITS/KG/HR 7.33 mls/hr IV .[id number] [facility] Rx#:[id number] Output: Emesis 200 Other: Voiding Method Toilet Toilet # Voids 1 - Exam The patient appeared well nourished and normally developed. Vital signs as documented. Head exam is unremarkable. No scleral icterus or corneal arcus noted. Neck is without jugular venous distension, thyromegaly, or carotid bruits. Carotid upstrokes are brisk bilaterally. Lungs are clear to auscultation and percussion. Cardiac exam reveals the PMI to be normally sized and situated. Rhythm is regular. First and second heart sounds normal. No murmurs, rubs or gallops. Abdominal exam reveals normal bowel sounds, no masses, no organomegaly and no aortic enlargement. Extremities are nonedematous and both femoral and pedal pulses are normal.Examination of the skin revealed no evidence of significant rashes, suspicious appearing nevi or other concerning lesions. Neurologically the patient is lethargic yet arousable. Moving all 4 extremities without any focal neurological deficit. He is a bit uncooperative with examination. He is able to follow simple commands. He is able to communicate. - Labs CBC & Chem 7: 09/20/21 08:13 09/20/21 08:13 Labs: Abnormal Lab Results - Last 24 Hours (Table) 09/19/21 09/19/21 09/19/21 Range/Units 16:06 16:09 16:09 WBC 27.2 H (3.8-10.6) k/uL Neutrophils # 24.0 H (1.3-7.7) k/uL Monocytes # 1.2 H (0-1.0) k/uL VBG pH (7.31-7.41) VBG pCO2 (37-51) mmHg VBG HCO3 (24-28) mmol/L Sodium (137-145) mmol/L Potassium (3.5-5.1) mmol/L Chloride (98-107) mmol/L Carbon Dioxide (22-30) mmol/L BUN (9-20) mg/dL Creatinine (0.66-1.25) mg/dL Glucose (74-99) mg/dL POC Glucose (mg/dL) 563 H (75-99) mg/dL Plasma Lactic Acid Len (0.7-2.0) mmol/L Phosphorus (2.5-4.5) mg/dL Magnesium (1.6-2.3) mg/dL Total Protein (6.3-8.2) g/dL Albumin (3.5-5.0) g/dL Urine Protein Trace H (Negative) Urine Glucose (UA) 4+ H (Negative) Urine Ketones 4+ H (Negative) 09/19/21 09/19/21 09/19/21 Range/Units 16:09 16:09 16:09 WBC (3.8-10.6) k/uL Neutrophils # (1.3-7.7) k/uL Monocytes # (0-1.0) k/uL VBG pH 7.19 L* (7.31-7.41) VBG pCO2 29 L (37-51) mmHg VBG HCO3 11 L (24-28) mmol/L Sodium (137-145) mmol/L Potassium 5.4 H (3.5-5.1) mmol/L Chloride (98-107) mmol/L Carbon Dioxide 10 L (22-30) mmol/L BUN 32 H (9-20) mg/dL Creatinine 1.68 H (0.66-1.25) mg/dL Glucose 610 H* (74-99) mg/dL POC Glucose (mg/dL) (75-99) mg/dL Plasma Lactic Acid Len 3.4 H* (0.7-2.0) mmol/L Phosphorus 6.9 H (2.5-4.5) mg/dL Magnesium 2.4 H (1.6-2.3) mg/dL Total Protein 8.3 H (6.3-8.2) g/dL Albumin 5.5 H (3.5-5.0) g/dL Urine Protein (Negative) Urine Glucose (UA) (Negative) Urine Ketones (Negative) 09/19/21 09/19/21 09/19/21 Range/Units 17:27 18:54 19:24 WBC (3.8-10.6) k/uL Neutrophils # (1.3-7.7) k/uL Monocytes # (0-1.0) k/uL VBG pH (7.31-7.41) VBG pCO2 (37-51) mmHg VBG HCO3 (24-28) mmol/L Sodium (137-145) mmol/L Potassium (3.5-5.1) mmol/L Chloride (98-107) mmol/L Carbon Dioxide (22-30) mmol/L BUN (9-20) mg/dL Creatinine (0.66-1.25) mg/dL Glucose (74-99) mg/dL POC Glucose (mg/dL) 487 H 428 H 329 H (75-99) mg/dL Plasma Lactic Acid Len (0.7-2.0) mmol/L Phosphorus (2.5-4.5) mg/dL Magnesium (1.6-2.3) mg/dL Total Protein (6.3-8.2) g/dL Albumin (3.5-5.0) g/dL Urine Protein (Negative) Urine Glucose (UA) (Negative) Urine Ketones (Negative) 09/19/21 09/19/21 09/19/21 Range/Units 20:25 20:56 21:28 WBC (3.8-10.6) k/uL Neutrophils # (1.3-7.7) k/uL Monocytes # (0-1.0) k/uL VBG pH (7.31-7.41) VBG pCO2 (37-51) mmHg VBG HCO3 (24-28) mmol/L Sodium 149 H (137-145) mmol/L Potassium (3.5-5.1) mmol/L Chloride 118 H (98-107) mmol/L Carbon Dioxide 19 L (22-30) mmol/L BUN 28 H (9-20) mg/dL Creatinine (0.66-1.25) mg/dL Glucose 252 H (74-99) mg/dL POC Glucose (mg/dL) 270 H 217 H (75-99) mg/dL Plasma Lactic Acid Len (0.7-2.0) mmol/L Phosphorus (2.5-4.5) mg/dL Magnesium (1.6-2.3) mg/dL Total Protein (6.3-8.2) g/dL Albumin (3.5-5.0) g/dL Urine Protein (Negative) Urine Glucose (UA) (Negative) Urine Ketones (Negative) 09/19/21 09/19/21 09/20/21 Range/Units 22:21 23:31 00:39 WBC (3.8-10.6) k/uL Neutrophils # (1.3-7.7) k/uL Monocytes # (0-1.0) k/uL VBG pH (7.31-7.41) VBG pCO2 (37-51) mmHg VBG HCO3 (24-28) mmol/L Sodium 148 H (137-145) mmol/L Potassium (3.5-5.1) mmol/L Chloride 117 H (98-107) mmol/L Carbon Dioxide (22-30) mmol/L BUN 27 H (9-20) mg/dL Creatinine (0.66-1.25) mg/dL Glucose 133 H (74-99) mg/dL POC Glucose (mg/dL) 176 H 134 H (75-99) mg/dL Plasma Lactic Acid Len (0.7-2.0) mmol/L Phosphorus (2.5-4.5) mg/dL Magnesium (1.6-2.3) mg/dL Total Protein (6.3-8.2) g/dL Albumin (3.5-5.0) g/dL Urine Protein (Negative) Urine Glucose (UA) (Negative) Urine Ketones (Negative) 09/20/21 09/20/21 09/20/21 Range/Units 00:41 02:02 03:05 WBC (3.8-10.6) k/uL Neutrophils # (1.3-7.7) k/uL Monocytes # (0-1.0) k/uL VBG pH (7.31-7.41) VBG pCO2 (37-51) mmHg VBG HCO3 (24-28) mmol/L Sodium (137-145) mmol/L Potassium (3.5-5.1) mmol/L Chloride (98-107) mmol/L Carbon Dioxide (22-30) mmol/L BUN (9-20) mg/dL Creatinine (0.66-1.25) mg/dL Glucose (74-99) mg/dL POC Glucose (mg/dL) 124 H 135 H 146 H (75-99) mg/dL Plasma Lactic Acid Len (0.7-2.0) mmol/L Phosphorus (2.5-4.5) mg/dL Magnesium (1.6-2.3) mg/dL Total Protein (6.3-8.2) g/dL Albumin (3.5-5.0) g/dL Urine Protein (Negative) Urine Glucose (UA) (Negative) Urine Ketones (Negative) 09/20/21 09/20/21 09/20/21 Range/Units 04:07 05:02 06:15 WBC (3.8-10.6) k/uL Neutrophils # (1.3-7.7) k/uL Monocytes # (0-1.0) k/uL VBG pH (7.31-7.41) VBG pCO2 (37-51) mmHg VBG HCO3 (24-28) mmol/L Sodium (137-145) mmol/L Potassium (3.5-5.1) mmol/L Chloride (98-107) mmol/L Carbon Dioxide (22-30) mmol/L BUN (9-20) mg/dL Creatinine (0.66-1.25) mg/dL Glucose (74-99) mg/dL POC Glucose (mg/dL) 145 H 152 H 160 H (75-99) mg/dL Plasma Lactic Acid Len (0.7-2.0) mmol/L Phosphorus (2.5-4.5) mg/dL Magnesium (1.6-2.3) mg/dL Total Protein (6.3-8.2) g/dL Albumin (3.5-5.0) g/dL Urine Protein (Negative) Urine Glucose (UA) (Negative) Urine Ketones (Negative) 09/20/21 09/20/21 09/20/21 Range/Units 06:56 08:13 08:13 WBC 22.4 H (3.8-10.6) k/uL Neutrophils # (1.3-7.7) k/uL Monocytes # (0-1.0) k/uL VBG pH (7.31-7.41) VBG pCO2 (37-51) mmHg VBG HCO3 (24-28) mmol/L Sodium 148 H (137-145) mmol/L Potassium (3.5-5.1) mmol/L Chloride 114 H (98-107) mmol/L Carbon Dioxide (22-30) mmol/L BUN 24 H (9-20) mg/dL Creatinine (0.66-1.25) mg/dL Glucose 128 H (74-99) mg/dL POC Glucose (mg/dL) 170 H (75-99) mg/dL Plasma Lactic Acid Len (0.7-2.0) mmol/L Phosphorus 2.1 L (2.5-4.5) mg/dL Magnesium (1.6-2.3) mg/dL Total Protein (6.3-8.2) g/dL Albumin (3.5-5.0) g/dL Urine Protein (Negative) Urine Glucose (UA) (Negative) Urine Ketones (Negative) 09/20/21 Range/Units 11:46 WBC (3.8-10.6) k/uL Neutrophils # (1.3-7.7) k/uL Monocytes # (0-1.0) k/uL VBG pH (7.31-7.41) VBG pCO2 (37-51) mmHg VBG HCO3 (24-28) mmol/L Sodium (137-145) mmol/L Potassium (3.5-5.1) mmol/L Chloride (98-107) mmol/L Carbon Dioxide (22-30) mmol/L BUN (9-20) mg/dL Creatinine (0.66-1.25) mg/dL Glucose (74-99) mg/dL POC Glucose (mg/dL) 110 H (75-99) mg/dL Plasma Lactic Acid Len (0.7-2.0) mmol/L Phosphorus (2.5-4.5) mg/dL Magnesium (1.6-2.3) mg/dL Total Protein (6.3-8.2) g/dL Albumin (3.5-5.0) g/dL Urine Protein (Negative) Urine Glucose (UA) (Negative) Urine Ketones (Negative) Assessment and Plan Plan: DKA , recovered and the patient has closed his anion gap her blood sugars under better control. Still on insulin drip this morning. Anion gap metabolic acidosis and hyperglycemia secondary to above, recovered Acute leukocytosis, likely reactive. The white cell count is improving Sinus tachycardia secondary to above, recovered Previous history of drug overdose, mainly in the form of sedative hypnotic medication intake Type I diabetes mellitus previous history of DKA peripheral neuropathy history of multiple psychiatric hospitalizations/suicidal attempts nausea and emesis secondary to above Chronic insomnia Plan Insulin drip can be discontinued and the patient will be switched to long-acting insulin and the patient will be started on Levemir insulin 25 units along with NovoLog per sliding scale coverage the patient was also given NovoLog 10 units with meals Provide oral intake and make sure the patient is able to tolerate Dis continued IV fluids Zofran for nausea Resume psychiatric medications including trazodone and Prozac We will likely transfer out of the ICU The patient is high risk for readmission mostly because of noncompliance
[2021-09-20 15:32] LABS: African American GFR (CKD) >90 (>60 ml/min/1.73 sqM); Anion Gap 4 mmol/L; Blood Urea Nitrogen 20 mg/dL (9-20); Calcium 8.5 mg/dL (8.4-10.2); Carbon Dioxide 28 mmol/L (22-30); Chloride 110 mmol/L (98-107); Glucose 140 mg/dL (74-99); Non-African American GFR(CKD) >90 (>60 ml/min/1.73 sqM); Phosphorus 2.7 mg/dL (2.5-4.5); Potassium 3.8 mmol/L (3.5-5.1); Sodium 142 mmol/L (137-145)
[2021-09-20 17:16] LABS: Glucose,Whole Blood 126 mg/dL (75-99)
--- NOTE | 2021-09-20 17:16 | PN ---
PROGRESS NOTE DATE OF SERVICE: 09/20/2021 CHIEF COMPLAINT: DKA. HISTORY OF PRESENT ILLNESS: This gentleman's numbers are better. His gap has closed. He is still having intermittent nausea and vomiting, which is his usual course. REVIEW OF SYSTEMS: He is drowsy and depressed and not forthcoming with answers to questions. Cardiac exam demonstrates sinus tachycardia and chest is clear and the abdomen is soft. IMPRESSION: 1. Diabetic ketoacidosis. 2. Nausea and vomiting. 3. Type 1 insulin-dependent diabetes mellitus. PLAN: 1. Antiemetics along with Reglan. 2. Advance diet. 3. Resume his usual insulin management plus scale. MMODL / IJN: [id number] /
[2021-09-20 19:42] VITALS: RESP 18
[2021-09-20 20:25] LABS: Glucose,Whole Blood 134 mg/dL (75-99)
[2021-09-20] MEDS ORDERED: INSULIN ASPART (NovoLOG) 100 UNIT/ML VIAL SQ SCH (21:00)
[2021-09-20] MEDS ORDERED: traZODone HCL 100 MG TAB PO SCH (21:00)
[2021-09-21] MEDS: D5-0.45% NACL WITH KCL 20MEQ/L 1,000 ML IV SCH (01:16)
[2021-09-21] MEDS: ONDANSETRON 4 MG/2 ML VIAL IVP PRN ×2 (01:16→11:05)
[2021-09-21] MEDS: METOCLOPRAMIDE 5 MG/ML 2 ML VIAL IVP PRN (04:26)
[2021-09-21 07:15] LABS: Glucose,Whole Blood 355 mg/dL (75-99)
[2021-09-21] MEDS: INSULIN DETEMIR (LEVEMIR) 100 UNIT/ML SYR SQ SCH (07:46)
[2021-09-21] MEDS: INSULIN ASPART (NovoLOG) 100 UNIT/ML VIAL SQ SCH ×6 (10:53→18:57)
[2021-09-21] MEDS: LITHIUM CARBONATE 150 MG CAP PO SCH (10:54)
[2021-09-21] MEDS: hydrOXYzine pamoate 25 MG CAP PO SCH ×2 (10:54→17:58)
[2021-09-21] MEDS: FLUoxetine HCL 20 MG CAP PO SCH (10:54)
[2021-09-21 11:29] LABS: Glucose,Whole Blood 303 mg/dL (75-99)
[2021-09-21 12:15] VITALS: BP 138/87; PULSE 86; TEMP 98.2
--- NOTE | 2021-09-21 12:38 | P.PN ---
Subjective Progress Note Date: 09/21/21 Principal diagnosis: DKA 26-year-old male patient, type I diabetic came into the MRSA problem because of DKA. The patient is supposed to be on Levemir insulin 25 units daily along with NovoLog 10 units with meals and 6 units at bedtime plus a sliding scale coverage. The patient has had poor compliancy with insulin therapy. His blood sugars have been running high. He developed nausea and emesis for a few days. He arrived to the ED quite lethargic, tachycardic and his blood sugar was quite elevated. Blood work showed a white cell count of 27.2 with a hemoglobin of 17.1. Initial blood sugar her lab was 610 and the patient a mean of 32 with a creatinine of 1.68 and a serum bicarb of 10 and elevated anion gap of 32. Magnesium was at 2.4, calcium was at 9.7, lactic acid level was at 3.4, ammonia level was less than 9, total protein was 8.3 with an albumin level of 5.5. UA was positive for +4 acute tones and glucose. Salicylates, acetaminophen, and alcohol levels were all negative. The venous blood gas showed a pH of 7.19. The patient was given a total of 3 L of IV fluids in the emergency. The patient was started on an insulin drip. The patient will be admitted to the intensive care unit. . Mother the patient has history of psychiatric disorder including depression, borderline personality disorder and he has also cannabis use disorder along with sedative hypnotic medication abuse disorder. During the recent hospitalization at the psychiatry unit, the patient was kept on a combination of Prozac and trazodone and he was taken off the lithium. Note that I have taken care of this patient back in November 2020 when he came in with intentional drug overdose. 09/20/2021, the patient is awake and alert. Overnight, the patient was treated for DKA and the patient is back to his baseline. He was very nauseous and this morning is feeling better and he thinks that he may be able to tolerate some oral intake. He remains on insulin drip at 1.8 units an hour and the patient is also on D5 half-normal saline at the rate of 125 mL an hour. The patient's sodium level is at 148, chloride is 117, BUN to 37 with a creatinine of 0.9. The patient is adequately resuscitated IV fluids. The sinusTachycardia has recovered. The white cell count is also improving and the white cell count is down to 22.4 and this is likely reactive leukocytosis. No chest pain. No shortness of breath. The patient will be also transitioned to long-acting insulin. Most recent blood sugar is 1 On 09/21/2021 patient seen in follow-up on the general medical floor, he is resting quietly in bed, he states he is a bit nauseous still, but does feel better, he is tolerating oral intake. No shortness of breath, room air pulse ox is 98%, continues on D5 half-normal saline with 20 of KCl at a rate of 50 ML per hour, he has been transitioned to NovoLog sliding scale and mealtime NovoLog in addition to Levemir. No acute events overnight. Last set of labs from 022 showed closed anion gap of 4, CO2 of 28, chloride of 110, sodium 142 and potassium 3.8. Objective - Vital Signs Vital signs: Vital Signs Temp 98.2 F 09/21/21 12:14 Pulse 86 09/21/21 12:14 Resp 18 09/21/21 12:14 BP 138/87 09/21/21 12:14 Pulse Ox 96 09/21/21 12:14 Intake & Output 09/20/21 09/21/21 09/21/21 18:59 06:59 18:59 Intake Total 047.021 3687 Balance 995.357 4624 Weight 66.4 kg Intake: IV 125 D5-0.45% NaCl with KCl 125 20Meq/l 1,000 ml @ 50 mls /hr IV .Q20H YAEL Rx#: [id number] Intake, IV Titration 13.534 600 Amount D5-0.45% NaCl with KCl 600 20Meq/l 1,000 ml @ 50 mls /hr IV .Q20H YAEL Rx#: [id number] Insulin Regular 100 unit 13.534 In Sodium Chloride 0.9% 100 ml @ 0.1 UNITS/KG/HR 7.33 mls/hr IV .[id number] YAEL Rx#:[id number] Oral 600 Other: Voiding Method Toilet Toilet # Voids 1 2 - Exam GENERAL EXAM: Alert, very pleasant, 26-year-old white male, on room air with pulse ox of 96% comfortable in no apparent distress. HEAD: Normocephalic/atraumatic. EYES: Normal reaction of pupils, equal size. Conjunctiva pink, sclera white. NOSE: Clear with pink turbinates. THROAT: No erythema or exudates. NECK: No masses, no JVD, no thyroid enlargement, no adenopathy. CHEST: No chest wall deformity. Symmetrical expansion. LUNGS: Equal air entry with no crackles, wheeze, rhonchi or dullness. CVS: Regular rate and rhythm, normal S1 and S2, no gallops, no murmurs, no rubs ABDOMEN: Soft, nontender. No hepatosplenomegaly, normal bowel sounds, no guarding or rigidity. EXTREMITIES: No clubbing, no edema, no cyanosis, 2+ pulses and upper and lower extremities. MUSCULOSKELETAL: Muscle strength and tone normal. SPINE: No scoliosis or deformity SKIN: No rashes CENTRAL NERVOUS SYSTEM: Alert and oriented -3. No focal deficits, tone is normal in all 4 extremities. PSYCHIATRIC: Alert and oriented -3. Appropriate affect. Intact judgment and insight. - Labs CBC & Chem 7: 09/20/21 08:13 09/20/21 14:52 Labs: Abnormal Lab Results - Last 24 Hours (Table) 09/20/21 09/20/21 09/20/21 Range/Units 14:52 17:15 20:23 Chloride 110 H (98-107) mmol/L Glucose 140 H (74-99) mg/dL POC Glucose (mg/dL) 126 H 134 H (75-99) mg/dL 09/21/21 09/21/21 Range/Units 07:13 11:18 Chloride (98-107) mmol/L Glucose (74-99) mg/dL POC Glucose (mg/dL) 355 H 303 H (75-99) mg/dL Assessment and Plan Plan: Assessment: DKA , recovered and the patient has closed his anion gap her blood sugars under better control. Patient has been transitioned to sliding scale NovoLog, mealtime NovoLog and Levemir Anion gap metabolic acidosis and hyperglycemia secondary to above, recovered Acute leukocytosis, likely reactive. The white cell count is improving Sinus tachycardia secondary to above, recovered Previous history of drug overdose, mainly in the form of sedative hypnotic medication intake Type I diabetes mellitus previous history of DKA peripheral neuropathy history of multiple psychiatric hospitalizations/suicidal attempts nausea and emesis secondary to above Chronic insomnia Plan: Continue sliding scale insulin Continue Levemir Follow-up labs tomorrow Electrolytes and renal profile No active pulmonary/critical care issues Pulmonary critical care will sign off and follow on as-needed basis I have personally seen and examined the patient, performed the documentation and the assessment and plan as written. Number of minutes spent on the visit: [10] I have personally seen and examined the patient and reviewed the documentation. I performed a joint evaluation with the nurse practitioner in this evaluation was done more than 11 minutes. I fully agree with the documentation above and the plan of care. Time with Patient: Less than 30
--- NOTE | 2021-09-21 15:12 | PN ---
PROGRESS NOTE DATE OF SERVICE: 09/21/2021 CHIEF COMPLAINT: DKA, nausea, vomiting and dehydration. HISTORY OF PRESENT ILLNESS: This gentleman is still quite nauseated. He is still somewhat lethargic. Sugars are bouncing around, but they are in reasonably good control. REVIEW OF SYSTEMS: He is sleepy at the present time but denies chest pain, abdominal pain, etc. PHYSICAL EXAMINATION: Chest is clear. Cardiac exam is normal. Abdomen is flat, soft and nontender. IMPRESSION: 1. Diabetic ketoacidosis. 2. Dehydration. 3. Intractable nausea and vomiting. 4. Depression. PLAN: Continue with IV fluids and antiemetics until he is able to eat and be discharged. MMODL / IJN: [id number] /
[2021-09-21 17:08] LABS: Glucose,Whole Blood 91 mg/dL (75-99)
--- NOTE | 2021-09-22 16:22 | DS ---
DISCHARGE SUMMARY DATE OF DISCHARGE: 09/21/2021 CHIEF COMPLAINT: DKA. HISTORY OF PRESENT ILLNESS AND PHYSICAL EXAMINATION: Details of this man's history and physical can be found in the initial workup. COURSE IN THE HOSPITAL: After admission he was placed on bedrest, started on intravenous fluids in ICU and his gap was closed. Sugars were brought down and he was doing well. He had his usual problems with nausea and vomiting and was improving, and then he signed out AGAINST MEDICAL ADVICE on the evening of September 21. FINAL DIAGNOSIS: 1. Diabetic ketoacidosis. 2. Depression. 3. Dehydration. OPERATIONS: None. CONSULTATIONS: None. He is improved. MMODL / IJN: [id number] /
== END 2021-09-21 20:34 | disposition left against medical advice (07) | DRG 639 ==
LOC: EC 15:55 → 2SICU 17:57 → 5NMEDONC 09-20 16:15
PROVIDERS: ADMIT Family Medicine; ATTEND Family Medicine
DX: E10.10 Type 1 diabetes mellitus with ketoacidosis without coma (principal); D72.828 Other elevated white blood cell count; E86.0 Dehydration; F32.A Depression, unspecified; F51.04 Psychophysiologic insomnia; F60.3 Borderline personality disorder; G62.9 Polyneuropathy, unspecified; F12.10 Cannabis abuse, uncomplicated; J45.909 Unspecified asthma, uncomplicated; R00.0 Tachycardia, unspecified; E10.40 Type 1 diabetes mellitus with diabetic neuropathy, unspecified; L30.9 Dermatitis, unspecified; Z79.4 Long term (current) use of insulin; Z79.899 Other long term (current) drug therapy; Z82.3 Family history of stroke; Z82.49 Family history of ischemic heart disease and other diseases of the circulatory system; Z87.891 Personal history of nicotine dependence; Z91.14 Patient's other noncompliance with medication regimen; Z91.51 Personal history of suicidal behavior
CPT/HCPCS: 36415; 80048; 80051; 80053; 80143; 80178; 80179; 80320; 81003; 82140; 82565; 82803; 82947; 83605; 83735; 84100; 84520; 85025; 85027; 85610; 85730; 93005; 96361; 96374; 99291

== ENCOUNTER 2021-09-22 09:27 | Observation (INO) | payer OTHER ==
[2021-09-22 09:52] LABS: Glucose,Whole Blood 312 mg/dL (75-99)
[2021-09-22] MEDS ORDERED: ONDANSETRON 4 MG/2 ML VIAL IVP STA (10:02)
[2021-09-22] MEDS ORDERED: SODIUM CHLORIDE 0.9% 1,000 ML IV STA (10:02)
--- NOTE | 2021-09-22 10:10 | ED ---
General Adult HPI - General Chief complaint: Nausea/Vomiting/Diarrhea Stated complaint: Vomiting Time Seen by Provider: 09/22/21 09:33 Source: patient Mode of arrival: ambulatory Limitations: no limitations - History of Present Illness Initial comments: Dictation was produced using [employer] dictation software. please excuse any grammatical, word or spelling errors. Chief Complaint: 26-year-old male with past medical history of insulin-dependent diabetes mellitus presents to the ER for nausea vomiting. History of Present Illness: 26-year-old male he was recently discharged from the hospital after being admitted for diabetic ketoacidosis. He states he was just discharged last night. He is here today for nausea vomiting. Patient claims of mild abdominal pain. Denies any fever or constitutional symptoms. I saw the patient here in emergency department 3 days ago. Sinus of DKA admitted to the ICU for DKA care. The ROS documented in this emergency department record has been reviewed and confirmed by me. Those systems with pertinent positive or negative responses have been documented in the HPI. All other systems are other negative and/or noncontributory. PHYSICAL EXAM: General Impression: Alert and oriented x3, vomiting at the bedside HEENT: Normocephalic atraumatic, extra-ocular movements intact, pupils equal and reactive to light bilaterally, mucous membranes moist. Cardiovascular: Heart regular rate and rhythm Chest: Able to complete full sentences, no retractions, no tachypnea Abdomen: abdomen soft, non-tender, non-distended, no organomegaly Musculoskeletal: Pulses present and equal in all extremities, no peripheral edema Motor: no focal deficits noted Neurological: CN II-XII grossly intact, no focal motor or sensory deficits noted Skin: Intact with no visualized rashes Psych: Normal affect and mood ED course: 26-year-old male presents emergency department for nausea and vomiting. Vital signs upon arrival are within acceptable limits. Laboratory evaluation obtained. CBC unremarkable. Venous blood gas shows normal findings. Metabolic panel is normal. Lactic acid level is 2.2. Patient was in the emergency department for approximately 3 hours. Reevaluate bedside 1250. Patient still having significant vomiting despite administration of IV antiemetics. Patient has very labile diabetes. Patient probably benefit from admission for emesis control, hydration noted to prevent recurrent episode of DKA. - Related Data Home Medications Medication Instructions Recorded Confirmed Insulin Detemir (Levemir) [Levemir] 25 unit SQ DAILY 08/27/20 09/19/21 Gabapentin 600 mg PO TID PRN 06/29/21 09/19/21 INSULIN ASPART (NovoLOG) [NovoLOG 10 unit SQ AC-TID 06/29/21 09/19/21 (formulary)] Ibuprofen [Motrin] 800 mg PO QID PRN 06/29/21 09/19/21 Allergies Allergy/AdvReac Type Severity Reaction Status Date / Time No Known Allergies Allergy Verified 09/22/21 09:28 Review of Systems ROS Statement: Those systems with pertinent positive or pertinent negative responses have been documented in the HPI. ROS Other: All systems not noted in ROS Statement are negative. Past Medical History Past Medical History: Asthma, Diabetes Mellitus, Skin Disorder Additional Past Medical History / Comment(s): IDDM type I, neuropathy bilateral feet, DKA, eczema. History of Any Multi-Drug Resistant Organisms: None Reported Past Surgical History: Adenoidectomy Additional Past Surgical History / Comment(s): 2002 Past Anesthesia/Blood Transfusion Reactions: No Reported Reaction Past Psychological History: Anxiety, Depression Smoking Status: Former smoker, Vaper - Past Family History Mother Family Medical History: CVA/TIA Additional Family Medical History / Comment(s): TIA Father Family Medical History: Hyperlipidemia, Hypertension Additional Family Medical History / Comment(s): . General Exam Limitations: no limitations Course Vital Signs 09/22/21 09/22/21 09/22/21 09:28 10:31 12:00 Temperature 97.2 F L Pulse Rate 104 H 104 H 89 Respiratory 16 18 16 Rate Blood Pressure 136/104 133/98 121/86 O2 Sat by Pulse 98 98 98 Oximetry Medical Decision Making - Lab Data Result diagrams: 09/22/21 10:17 09/22/21 10:17 Lab Results 09/22/21 09/22/21 09/22/21 Range/Units 09:49 10:17 10:17 WBC 6.2 (3.8-10.6) k/uL RBC 5.09 (4.30-5.90) m/uL Hgb 15.9 (13.0-17.5) gm/dL Hct 47.6 (39.0-53.0) % MCV 93.6 (80.0-100.0) fL MCH 31.2 (25.0-35.0) pg MCHC 33.3 (31.0-37.0) g/dL RDW 12.9 (11.5-15.5) % Plt Count 269 (150-450) k/uL MPV 6.8 Neutrophils % 65 % Lymphocytes % 27 % Monocytes % 5 % Eosinophils % 1 % Basophils % 1 % Neutrophils # 4.0 (1.3-7.7) k/uL Lymphocytes # 1.6 (1.0-4.8) k/uL Monocytes # 0.3 (0-1.0) k/uL Eosinophils # 0.1 (0-0.7) k/uL Basophils # 0.0 (0-0.2) k/uL VBG pH (7.31-7.41) VBG pCO2 (37-51) mmHg VBG HCO3 (24-28) mmol/L Sodium 139 (137-145) mmol/L Potassium 4.2 (3.5-5.1) mmol/L Chloride 98 (98-107) mmol/L Carbon Dioxide 28 (22-30) mmol/L Anion Gap 13 mmol/L BUN 15 (9-20) mg/dL Creatinine 0.73 (0.66-1.25) mg/dL Est GFR (CKD-EPI)AfAm >90 (>60 ml/min/1.73 sqM) Est GFR (CKD-EPI)NonAf >90 (>60 ml/min/1.73 sqM) Glucose 304 H (74-99) mg/dL POC Glucose (mg/dL) 312 H (75-99) mg/dL POC Glu Heel Stainer ID Kourtney Gamez Plasma Lactic Acid Len (0.7-2.0) mmol/L Calcium 8.7 (8.4-10.2) mg/dL Magnesium 2.1 (1.6-2.3) mg/dL Total Bilirubin 1.6 H (0.2-1.3) mg/dL AST 19 (17-59) U/L ALT 16 (4-49) U/L Alkaline Phosphatase 73 (38-126) U/L Total Protein 6.8 (6.3-8.2) g/dL Albumin 4.3 (3.5-5.0) g/dL 09/22/21 09/22/21 Range/Units 10:17 10:17 WBC (3.8-10.6) k/uL RBC (4.30-5.90) m/uL Hgb (13.0-17.5) gm/dL Hct (39.0-53.0) % MCV (80.0-100.0) fL MCH (25.0-35.0) pg MCHC (31.0-37.0) g/dL RDW (11.5-15.5) % Plt Count (150-450) k/uL MPV Neutrophils % % Lymphocytes % % Monocytes % % Eosinophils % % Basophils % % Neutrophils # (1.3-7.7) k/uL Lymphocytes # (1.0-4.8) k/uL Monocytes # (0-1.0) k/uL Eosinophils # (0-0.7) k/uL Basophils # (0-0.2) k/uL VBG pH 7.53 H (7.31-7.41) VBG pCO2 34 L (37-51) mmHg VBG HCO3 28 (24-28) mmol/L Sodium (137-145) mmol/L Potassium (3.5-5.1) mmol/L Chloride (98-107) mmol/L Carbon Dioxide (22-30) mmol/L Anion Gap mmol/L BUN (9-20) mg/dL Creatinine (0.66-1.25) mg/dL Est GFR (CKD-EPI)AfAm (>60 ml/min/1.73 sqM) Est GFR (CKD-EPI)NonAf (>60 ml/min/1.73 sqM) Glucose (74-99) mg/dL POC Glucose (mg/dL) (75-99) mg/dL POC Glu Heel Stainer ID Plasma Lactic Acid Len 2.2 H* (0.7-2.0) mmol/L Calcium (8.4-10.2) mg/dL Magnesium (1.6-2.3) mg/dL Total Bilirubin (0.2-1.3) mg/dL AST (17-59) U/L ALT (4-49) U/L Alkaline Phosphatase (38-126) U/L Total Protein (6.3-8.2) g/dL Albumin (3.5-5.0) g/dL Disposition Clinical Impression: Intractable nausea and vomiting Disposition: ADMITTED IP TO THIS HOSP Referrals: Brown Valenzuela MD [Primary Care Provider] - 1-2 days
[2021-09-22 10:33] LABS: VBG PH 7.53 (7.31-7.41)
[2021-09-22 10:43] LABS: Basophils % (A) 1 %; Eosinophils # (A) 0.1 k/uL (0-0.7); Eosinophils % (A) 1 %; HCT 47.6 % (39.0-53.0); HGB 15.9 gm/dL (13.0-17.5); Lymphocytes # (A) 1.6 k/uL (1.0-4.8); Lymphocytes % (A) 27 %; MCH 31.2 pg (25.0-35.0); MCHC 33.3 g/dL (31.0-37.0); MCV 93.6 fL (80.0-100.0); Mean Platelet Volume 6.8; Monocytes # (A) 0.3 k/uL (0-1.0); Monocytes % (A) 5 %; Neutrophils % (A) 65 %; Platelet Count 269 k/uL (150-450); RBC 5.09 m/uL (4.30-5.90); RDW 12.9 % (11.5-15.5); WBC 6.2 k/uL (3.8-10.6)
[2021-09-22 10:52] LABS: ALT 16 U/L (4-49); AST 19 U/L (17-59); African American GFR (CKD) >90 (>60 ml/min/1.73 sqM); Albumin 4.3 g/dL (3.5-5.0); Alkaline Phosphatase 73 U/L (38-126); Anion Gap 13 mmol/L; Blood Urea Nitrogen 15 mg/dL (9-20); Calcium 8.7 mg/dL (8.4-10.2); Carbon Dioxide 28 mmol/L (22-30); Chloride 98 mmol/L (98-107); Glucose 304 mg/dL (74-99); Magnesium 2.1 mg/dL (1.6-2.3); Non-African American GFR(CKD) >90 (>60 ml/min/1.73 sqM); Potassium 4.2 mmol/L (3.5-5.1); Sodium 139 mmol/L (137-145); Total Bilirubin 1.6 mg/dL (0.2-1.3); Total Protein 6.8 g/dL (6.3-8.2)
[2021-09-22] MEDS ORDERED: METOCLOPRAMIDE 5 MG/ML 2 ML VIAL IVP STA (12:04)
[2021-09-22] MEDS ORDERED: NALOXONE 0.4 MG/ML 1 ML VIAL IV PRN (12:46)
[2021-09-22] MEDS ORDERED: ONDANSETRON 4 MG/2 ML VIAL IVP PRN ×2 (12:46→16:36)
[2021-09-22] MEDS ORDERED: SODIUM CHLORIDE 0.9% 1,000 ML IV SCH (13:00)
--- NOTE | 2021-09-22 16:14 | HP ---
HISTORY AND PHYSICAL CHIEF COMPLAINT: Intractable nausea and vomiting. HISTORY OF PRESENT ILLNESS: This 26-year-old depressed and noncompliant type 1 diabetic left the hospital AMA last night. This morning he was seen walking around in the lobby of the hospital. When approached, he stated that he was "doing well." A few hours later he was in the emergency room vomiting. Blood sugar was around 300. He was not acidotic. He is probably moving into diabetic gastroparesis. He has had no fever, chills, hematemesis, melena, hematochezia, diarrhea, etc. Past medical history, family history, and personal and social histories are unchanged. PHYSICAL EXAMINATION: Blood pressure is 138/88 with a pulse of 106, respirations of 35, and he is afebrile. In general he appeared to be uncomfortable, dehydrated and acutely ill. He was dehydrated. Head, ears, eyes, nose, mouth and throat were normal. Chest was clear. Cardiac exam demonstrated tachycardia. The abdomen was flat, soft, and he had some mild tenderness throughout but no rebound or referred tenderness. There were no masses. Bowel sounds were heard. Extremities were normal. Neurologically he was intact. He is admitted to the hospital with diagnoses: 1. Intractable nausea and vomiting. 2. Gastroparesis. 3. Poorly controlled type 1 diabetes mellitus. 4. Noncompliance. 5. Dehydration. 6. Depression. PLAN: 1. Bedrest. 2. IV fluids. 3. Antiemetics. 4. Try Reglan 10 mg q.i.d. MMODL / TRAMN: [id number] /
[2021-09-22] MEDS ORDERED: IBUPROFEN 800 MG TAB PO PRN (16:31)
[2021-09-22] MEDS ORDERED: GABAPENTIN 300 MG CAP PO PRN (16:31)
[2021-09-22] MEDS ORDERED: DEXTROSE 5%-0.45% NACL 1,000 ML IV SCH (16:45)
[2021-09-22 17:07] LABS: Glucose,Whole Blood 70 mg/dL (75-99)
[2021-09-22] MEDS ORDERED: INSULIN ASPART (NovoLOG) 100 UNIT/ML VIAL SQ SCH ×2 (17:30)
[2021-09-22] MEDS ORDERED: METOCLOPRAMIDE 5 MG/ML 2 ML VIAL IVP SCH (18:00)
[2021-09-22 21:03] VITALS: BP 125/82; PULSE 82; RESP 17; TEMP 97.5
[2021-09-23] MEDS ORDERED: INSULIN DETEMIR (LEVEMIR) 100 UNIT/ML SYR SQ SCH (07:00)
--- NOTE | 2021-09-25 18:16 | DS ---
DISCHARGE SUMMARY DATE OF ADMISSION: 09/22/2021 DATE OF DISCHARGE: 09/22/2021. CHIEF COMPLAINT: Intractable nausea and vomiting. HISTORY OF PRESENT ILLNESS AND PHYSICAL EXAMINATION: Details of this man's history and physical can be found in the initial workup. LABORATORY STUDIES: While he was in the hospital he had laboratory studies, details of which can be found in the laboratory section of his chart. COURSE IN THE HOSPITAL: After admission he was placed at bedrest and started on intravenous fluids and antiemetics. It was felt that he may have gastroparesis. Plan was that he would be given a trial on metoclopramide, but he signed himself out AGAINST MEDICAL ADVICE several hours after he had come in. FINAL DIAGNOSIS: 1. Intractable nausea and vomiting. 2. Uncontrolled type 1 insulin-dependent diabetes mellitus. 3. Depression. 4. Dehydration. 5. Possible gastroparesis. OPERATIONS: None. CONSULTATIONS: None. He is not improved. He signed out AGAINST MEDICAL ADVICE. MMBIANCA / ALDEN: [id number] /
== END 2021-09-22 21:09 | disposition left against medical advice (07) ==
LOC: EC 09:27 → 6NMEDSUR 12:46
PROVIDERS: ADMIT Family Medicine; ATTEND Family Medicine
DX: R11.2 Nausea with vomiting, unspecified (principal); E10.65 Type 1 diabetes mellitus with hyperglycemia; E86.0 Dehydration; E10.42 Type 1 diabetes mellitus with diabetic polyneuropathy; L30.9 Dermatitis, unspecified; J45.909 Unspecified asthma, uncomplicated; R00.0 Tachycardia, unspecified; F32.A Depression, unspecified; F41.9 Anxiety disorder, unspecified; Z53.29 Procedure and treatment not carried out because of patient's decision for other reasons; Z91.19 Patient's noncompliance with other medical treatment and regimen; Z79.4 Long term (current) use of insulin; Z79.899 Other long term (current) drug therapy; Z98.890 Other specified postprocedural states; Z87.891 Personal history of nicotine dependence; Z82.3 Family history of stroke; Z82.49 Family history of ischemic heart disease and other diseases of the circulatory system; Z83.49 Family history of other endocrine, nutritional and metabolic diseases
CPT/HCPCS: 96361; 96374; 96375; 99285; 36415; 93005; 80053; 82803; 83605; 83735; 85025; G0378; J2765; J2405

== ENCOUNTER 2021-09-24 11:46 | Emergency (ER) | payer OTHER ==
[2021-09-24 11:56] VITALS: RESP 12; TEMP 98.1
[2021-09-24 12:00] LABS: Glucose,Whole Blood 307 mg/dL (75-99)
[2021-09-24] MEDS ORDERED: SODIUM CHLORIDE 0.9% 500 ML 500 ML IV ONE (12:34)
[2021-09-24] MEDS ORDERED: SODIUM CHLORIDE 0.9% 1,000 ML IV ONE (12:34)
[2021-09-24] MEDS ORDERED: METOCLOPRAMIDE 5 MG/ML 2 ML VIAL IVP STA (12:34)
--- NOTE | 2021-09-24 12:43 | ED ---
General Adult HPI - General Chief complaint: Abdominal Pain Stated complaint: abd pain Time Seen by Provider: 09/24/21 12:05 Source: patient, EMS, RN notes reviewed, old records reviewed Mode of arrival: EMS - History of Present Illness Initial comments: This a 26-year-old male who presents emergency Department with a past medical history significant for diabetes. Patient states sugars been high all days been vomiting for the last few hours. Patient states he continues to smoke marijuana. Patient denies any chest pain or palpitations. Patient states she has abdominal cramping. Patient denies any diarrhea. Patient denies lightheadedness dizziness or near syncopal episode. - Related Data Home Medications Medication Instructions Recorded Confirmed Insulin Detemir (Levemir) [Levemir] 25 unit SQ DAILY 08/27/20 09/24/21 Gabapentin 600 mg PO TID PRN 06/29/21 09/24/21 INSULIN ASPART (NovoLOG) [NovoLOG 10 unit SQ AC-TID 06/29/21 09/24/21 (formulary)] Ibuprofen [Motrin] 800 mg PO QID PRN 06/29/21 09/24/21 Previous Rx's Medication Instructions Recorded Metoclopramide [Reglan] 10 mg PO Q8H #10 tab 09/24/21 Allergies Allergy/AdvReac Type Severity Reaction Status Date / Time No Known Allergies Allergy Verified 09/24/21 13:06 Review of Systems ROS Statement: Those systems with pertinent positive or pertinent negative responses have been documented in the HPI. ROS Other: All systems not noted in ROS Statement are negative. Past Medical History Past Medical History: Asthma, Diabetes Mellitus, Skin Disorder Additional Past Medical History / Comment(s): IDDM type I, neuropathy bilateral feet, DKA, eczema. History of Any Multi-Drug Resistant Organisms: None Reported Past Surgical History: Adenoidectomy Additional Past Surgical History / Comment(s): 2002 Past Anesthesia/Blood Transfusion Reactions: No Reported Reaction Past Psychological History: Anxiety, Depression Smoking Status: Former smoker, Vaper Past Alcohol Use History: Occasional Past Drug Use History: Marijuana - Past Family History Mother Family Medical History: CVA/TIA Additional Family Medical History / Comment(s): TIA Father Family Medical History: Hyperlipidemia, Hypertension Additional Family Medical History / Comment(s): . General Exam - General Exam Comments Initial Comments: GENERAL: Patient is well-developed and well-nourished. Patient is nontoxic and well- hydrated and is in mild distress. ENT: Neck is soft and supple. No significant lymphadenopathy is noted. Oropharynx is clear. Moist mucous membranes. Neck has full range of motion without eliciting any pain. EYES: The sclera were anicteric and conjunctiva were pink and moist. Extraocular movements were intact and pupils were equal round and reactive to light. Eyelids were unremarkable. PULMONARY: Unlabored respirations. Good breath sounds bilaterally. No audible rales rhonchi or wheezing was noted. CARDIOVASCULAR: There is a regular rate and rhythm without any murmurs gallops or rubs. ABDOMEN: Soft and nontender with normal bowel sounds. No palpable organomegaly was noted. There is no palpable pulsatile mass. SKIN: Skin is clear with no lesions or rashes and otherwise unremarkable. NEUROLOGIC: Patient is alert and oriented x3. Cranial nerves II through XII are grossly intact. Motor and sensory are also intact. Normal speech, volume and content. Symmetrical smile. MUSCULOSKELETAL: Normal extremities with adequate strength and full range of motion. No lower extremity swelling or edema. No calf tenderness. LYMPHATICS: No significant lymphadenopathy is noted PSYCHIATRIC: Normal psychiatric evaluation. Course Vital Signs 09/24/21 09/24/21 09/24/21 11:52 12:53 13:47 Temperature 98.1 F Pulse Rate 69 87 89 Respiratory 12 12 12 Rate Blood Pressure 172/114 151/104 124/93 O2 Sat by Pulse 100 97 Oximetry 09/24/21 14:10 Temperature Pulse Rate 53 L Respiratory 12 Rate Blood Pressure 142/71 O2 Sat by Pulse 96 Oximetry Medical Decision Making - Medical Decision Making Patient is given Reglan the emergency department he had no more vomiting since. Patient was also hydrated in the emergency department. - Lab Data Result diagrams: 09/24/21 12:52 09/24/21 12:52 Lab Results 09/24/21 09/24/21 09/24/21 Range/Units 11:57 12:52 12:52 WBC 6.8 (3.8-10.6) k/uL RBC 4.86 (4.30-5.90) m/uL Hgb 15.3 (13.0-17.5) gm/dL Hct 45.2 (39.0-53.0) % MCV 93.0 (80.0-100.0) fL MCH 31.5 (25.0-35.0) pg MCHC 33.8 (31.0-37.0) g/dL RDW 12.7 (11.5-15.5) % Plt Count 272 (150-450) k/uL MPV 7.0 Neutrophils % 54 % Lymphocytes % 33 % Monocytes % 6 % Eosinophils % 4 % Basophils % 1 % Neutrophils # 3.7 (1.3-7.7) k/uL Lymphocytes # 2.2 (1.0-4.8) k/uL Monocytes # 0.4 (0-1.0) k/uL Eosinophils # 0.3 (0-0.7) k/uL Basophils # 0.0 (0-0.2) k/uL Sodium 140 (137-145) mmol/L Potassium 4.1 (3.5-5.1) mmol/L Chloride 100 (98-107) mmol/L Carbon Dioxide 31 H (22-30) mmol/L Anion Gap 9 mmol/L BUN 19 (9-20) mg/dL Creatinine 0.70 (0.66-1.25) mg/dL Est GFR (CKD-EPI)AfAm >90 (>60 ml/min/1.73 sqM) Est GFR (CKD-EPI)NonAf >90 (>60 ml/min/1.73 sqM) Glucose 228 H (74-99) mg/dL POC Glucose (mg/dL) 307 H (75-99) mg/dL POC Glu Cartography Professor ID Michelle Harry Calcium 9.0 (8.4-10.2) mg/dL Total Bilirubin 0.7 (0.2-1.3) mg/dL AST 28 (17-59) U/L ALT 20 (4-49) U/L Alkaline Phosphatase 62 (38-126) U/L Total Protein 7.0 (6.3-8.2) g/dL Albumin 4.3 (3.5-5.0) g/dL Urine Opiates Screen (NotDetected) Ur Oxycodone Screen (NotDetected) Urine Methadone Screen (NotDetected) Ur Propoxyphene Screen (NotDetected) Ur Barbiturates Screen (NotDetected) U Tricyclic Antidepress (NotDetected) Ur Phencyclidine Scrn (NotDetected) Ur Amphetamines Screen (NotDetected) U Methamphetamines Scrn (NotDetected) U Benzodiazepines Scrn (NotDetected) Urine Cocaine Screen (NotDetected) U Marijuana (THC) Screen (NotDetected) Acetone, Qual Negative (Negative) 09/24/21 Range/Units 12:52 WBC (3.8-10.6) k/uL RBC (4.30-5.90) m/uL Hgb (13.0-17.5) gm/dL Hct (39.0-53.0) % MCV (80.0-100.0) fL MCH (25.0-35.0) pg MCHC (31.0-37.0) g/dL RDW (11.5-15.5) % Plt Count (150-450) k/uL MPV Neutrophils % % Lymphocytes % % Monocytes % % Eosinophils % % Basophils % % Neutrophils # (1.3-7.7) k/uL Lymphocytes # (1.0-4.8) k/uL Monocytes # (0-1.0) k/uL Eosinophils # (0-0.7) k/uL Basophils # (0-0.2) k/uL Sodium (137-145) mmol/L Potassium (3.5-5.1) mmol/L Chloride (98-107) mmol/L Carbon Dioxide (22-30) mmol/L Anion Gap mmol/L BUN (9-20) mg/dL Creatinine (0.66-1.25) mg/dL Est GFR (CKD-EPI)AfAm (>60 ml/min/1.73 sqM) Est GFR (CKD-EPI)NonAf (>60 ml/min/1.73 sqM) Glucose (74-99) mg/dL POC Glucose (mg/dL) (75-99) mg/dL POC Glu Cartography Professor ID Calcium (8.4-10.2) mg/dL Total Bilirubin (0.2-1.3) mg/dL AST (17-59) U/L ALT (4-49) U/L Alkaline Phosphatase (38-126) U/L Total Protein (6.3-8.2) g/dL Albumin (3.5-5.0) g/dL Urine Opiates Screen Not Detected (NotDetected) Ur Oxycodone Screen Not Detected (NotDetected) Urine Methadone Screen Not Detected (NotDetected) Ur Propoxyphene Screen Not Detected (NotDetected) Ur Barbiturates Screen Not Detected (NotDetected) U Tricyclic Antidepress Not Detected (NotDetected) Ur Phencyclidine Scrn Not Detected (NotDetected) Ur Amphetamines Screen Not Detected (NotDetected) U Methamphetamines Scrn Not Detected (NotDetected) U Benzodiazepines Scrn Not Detected (NotDetected) Urine Cocaine Screen Not Detected (NotDetected) U Marijuana (THC) Screen Detected H (NotDetected) Acetone, Qual (Negative) Disposition Clinical Impression: Acute vomiting, Cannabis abuse Disposition: HOME SELF-CARE Condition: Good Instructions (If sedation given, give patient instructions): Acute Nausea and Vomiting (ED), Cannabis Abuse (ED) Prescriptions: Metoclopramide [Reglan] 10 mg PO Q8H #10 tab Is patient prescribed a controlled substance at d/c from ED?: No Referrals: Brown Valenzuela MD [Primary Care Provider] - 1-2 days Time of Disposition: 14:59
[2021-09-24 13:19] LABS: ALT 20 U/L (4-49); AST 28 U/L (17-59); African American GFR (CKD) >90 (>60 ml/min/1.73 sqM); Albumin 4.3 g/dL (3.5-5.0); Alkaline Phosphatase 62 U/L (38-126); Anion Gap 9 mmol/L; Blood Urea Nitrogen 19 mg/dL (9-20); Carbon Dioxide 31 mmol/L (22-30); Chloride 100 mmol/L (98-107); Glucose 228 mg/dL (74-99); Non-African American GFR(CKD) >90 (>60 ml/min/1.73 sqM); Potassium 4.1 mmol/L (3.5-5.1); Sodium 140 mmol/L (137-145); Total Bilirubin 0.7 mg/dL (0.2-1.3)
[2021-09-24 13:25] LABS: Basophils % (A) 1 %; Eosinophils # (A) 0.3 k/uL (0-0.7); Eosinophils % (A) 4 %; HCT 45.2 % (39.0-53.0); HGB 15.3 gm/dL (13.0-17.5); Lymphocytes # (A) 2.2 k/uL (1.0-4.8); Lymphocytes % (A) 33 %; MCH 31.5 pg (25.0-35.0); MCHC 33.8 g/dL (31.0-37.0); Monocytes # (A) 0.4 k/uL (0-1.0); Monocytes % (A) 6 %; Neutrophils # (A) 3.7 k/uL (1.3-7.7); Neutrophils % (A) 54 %; Platelet Count 272 k/uL (150-450); RBC 4.86 m/uL (4.30-5.90); RDW 12.7 % (11.5-15.5); WBC 6.8 k/uL (3.8-10.6)
[2021-09-24 13:29] LABS: Amphetamine Screen,Urine Not Detected (NotDetected); Barbiturate Screen,Urine Not Detected (NotDetected); Benzodiazepines Screen,Urine Not Detected (NotDetected); Cocaine Screen,Urine Not Detected (NotDetected); Methadone Screen, Urine Not Detected (NotDetected); Opiate Screen,Urine Not Detected (NotDetected); Oxycodone Screen, Urine Not Detected (NotDetected); Phencyclidine Screen,Urine Not Detected (NotDetected); Tricyclic Antidepressant,Urine Not Detected (NotDetected); Urn Cannabinoid Scrn Detected (NotDetected)
[2021-09-24 14:12] VITALS: BP 142/71; PULSE 53
== END 2021-09-24 16:21 | disposition home or self-care (01) ==
LOC: EC 11:46
DX: F12.10 Cannabis abuse, uncomplicated (principal); R10.9 Unspecified abdominal pain; J45.909 Unspecified asthma, uncomplicated; E10.40 Type 1 diabetes mellitus with diabetic neuropathy, unspecified; E10.10 Type 1 diabetes mellitus with ketoacidosis without coma; Z87.891 Personal history of nicotine dependence
CPT/HCPCS: 36415; 80053; 82009; 85025; 80306; 99283; 96374; J2765

== ENCOUNTER 2021-09-26 13:43 | Emergency (ER) | payer OTHER ==
[2021-09-26 14:38] VITALS: BP 155/110; PULSE 96; RESP 16; TEMP 98.2
[2021-09-26 15:07] LABS: Glucose,Whole Blood 141 mg/dL (75-99)
[2021-09-26] MEDS ORDERED: SODIUM CHLORIDE 0.9% 2,000 ML IV STA (15:19)
[2021-09-26 15:47] LABS: ALT 20 U/L (4-49); AST 30 U/L (17-59); African American GFR (CKD) >90 (>60 ml/min/1.73 sqM); Albumin 4.5 g/dL (3.5-5.0); Alkaline Phosphatase 51 U/L (38-126); Anion Gap 10 mmol/L; Blood Urea Nitrogen 15 mg/dL (9-20); Calcium 9.1 mg/dL (8.4-10.2); Carbon Dioxide 30 mmol/L (22-30); Chloride 99 mmol/L (98-107); Glucose 130 mg/dL (74-99); Lipase 85 U/L (23-300); Non-African American GFR(CKD) >90 (>60 ml/min/1.73 sqM); Sodium 139 mmol/L (137-145); Total Bilirubin 0.6 mg/dL (0.2-1.3); Total Protein 7.2 g/dL (6.3-8.2)
[2021-09-26 15:52] LABS: Amorphous Sediment,Urine Rare /hpf; Appearance,Urine Cloudy (Clear); Bilirubin,Urine Negative (Negative); Blood,Urine Negative (Negative); Color,Urine Light Yellow; Glucose,Urine (UA) 4+ (Negative); Ketones,Urine Negative (Negative); Leukocyte Esterase,Urine Negative (Negative); Nitrite,Urine Negative (Negative); Protein,Urine Negative (Negative); Specific Gravity,Urine 1.018 (1.001-1.035); Urobilinogen,Urine <2.0 mg/dL (<2.0); WBC,Urine <1 /hpf (0-5)
[2021-09-26 16:02] LABS: HCT 43.8 % (39.0-53.0); HGB 15.1 gm/dL (13.0-17.5); MCH 31.7 pg (25.0-35.0); MCHC 34.4 g/dL (31.0-37.0); MCV 92.1 fL (80.0-100.0); Mean Platelet Volume 6.6; Platelet Count 323 k/uL (150-450); RBC 4.76 m/uL (4.30-5.90); RDW 12.8 % (11.5-15.5); WBC 7.9 k/uL (3.8-10.6)
[2021-09-26 16:06] LABS: Potassium 3.9 mmol/L (3.5-5.1)
--- NOTE | 2021-09-26 16:36 | XR ---
EXAMINATION TYPE: XR KUB DATE OF EXAM: 09/26/2021 4:13 PM CLINICAL HISTORY: Nausea vomiting and pain. TECHNIQUE: Two supine KUB images of the abdomen are obtained. COMPARISON: Abdominal x-ray April 05, 2020. FINDINGS: Gas is seen in nondistended stomach. Scattered gas is seen in non-distended small bowel loo ps. Gas and fecal material is seen in non-distended colon. There is no visceromegaly, pneumoperitoneu m, or abnormal calcification appreciated. The lung bases are clear and the osseous structures are int act. IMPRESSION: Overall nonobstructive bowel gas pattern redemonstrated. No significant change from prior.
[2021-09-26 16:49] LABS: Eosinophils # (M) 0.47 k/uL (0-0.7); Lymphocytes # (M) 2.61 k/uL (1.0-4.8); Monocytes # (M) 0.47 k/uL (0-1.0); Neutrophils # (M) 4.35 k/uL (1.3-7.7); Neutrophils % (M) 55 %; Nucleated Red Blood Cells 0 /100 WBC (0-0); RBC Morphology Normal; Total Cells Counted 100
[2021-09-26 18:24] LABS: Glucose,Whole Blood 44 mg/dL (75-99)
[2021-09-26] MEDS ORDERED: DEXTROSE 50% SYRINGE 50 ML IVP STA (18:30)
--- NOTE | 2021-09-26 18:32 | ED ---
Nausea/Vomiting/Diarrhea HPI - General Chief complaint: Nausea/Vomiting/Diarrhea Stated complaint: Stomach Pain Vomiting Time Seen by Provider: 09/26/21 14:56 Source: patient Mode of arrival: wheelchair Limitations: no limitations - History of Present Illness Initial comments: Patient complains of nausea and vomiting. He has no chest pain or shortness of breath. He has no belly or back pain. He has no focal weakness. He has no lightheadedness or dizziness. He has taken no medicine for his symptoms. He wasn't doing anything when this began. He has no blood in the stool or black or tarry stool. - Related Data Home Medications Medication Instructions Recorded Confirmed Insulin Detemir (Levemir) [Levemir] 25 unit SQ DAILY 08/27/20 09/26/21 Gabapentin 600 mg PO TID PRN 06/29/21 09/26/21 INSULIN ASPART (NovoLOG) [NovoLOG 10 unit SQ AC-TID 06/29/21 09/26/21 (formulary)] Ibuprofen [Motrin] 800 mg PO QID PRN 06/29/21 09/26/21 Previous Rx's Medication Instructions Recorded Metoclopramide [Reglan] 10 mg PO Q8H #10 tab 09/24/21 Allergies Allergy/AdvReac Type Severity Reaction Status Date / Time No Known Allergies Allergy Verified 09/26/21 17:14 Review of Systems ROS Statement: Those systems with pertinent positive or pertinent negative responses have been documented in the HPI. ROS Other: All systems not noted in ROS Statement are negative. Past Medical History Past Medical History: Asthma, Diabetes Mellitus, Skin Disorder Additional Past Medical History / Comment(s): IDDM type I, neuropathy bilateral feet, DKA, eczema. History of Any Multi-Drug Resistant Organisms: None Reported Past Surgical History: Adenoidectomy Additional Past Surgical History / Comment(s): 2002 Past Anesthesia/Blood Transfusion Reactions: No Reported Reaction Past Psychological History: Anxiety, Depression Smoking Status: Former smoker, Vaper Past Alcohol Use History: Occasional Past Drug Use History: Marijuana - Past Family History Mother Family Medical History: CVA/TIA Additional Family Medical History / Comment(s): TIA Father Family Medical History: Hyperlipidemia, Hypertension Additional Family Medical History / Comment(s): . General Exam Limitations: no limitations General appearance: alert, in no apparent distress Head exam: Present: atraumatic, normocephalic, normal inspection Eye exam: Present: normal appearance, PERRL, EOMI. Absent: scleral icterus, conjunctival injection, periorbital swelling ENT exam: Present: normal exam, mucous membranes moist Neck exam: Present: normal inspection. Absent: tenderness, meningismus, lymphadenopathy Respiratory exam: Present: normal lung sounds bilaterally. Absent: respiratory distress, wheezes, rales, rhonchi, stridor Cardiovascular Exam: Present: regular rate, normal rhythm, normal heart sounds. Absent: systolic murmur, diastolic murmur, rubs, gallop, clicks GI/Abdominal exam: Present: soft, normal bowel sounds. Absent: distended, tenderness, guarding, rebound, rigid Extremities exam: Present: normal inspection, full ROM, normal capillary refill. Absent: tenderness, pedal edema, joint swelling, calf tenderness Back exam: Present: normal inspection Neurological exam: Present: alert, oriented X3, CN II-XII intact Psychiatric exam: Present: normal affect, normal mood Skin exam: Present: warm, dry, intact, normal color. Absent: rash Course Vital Signs 09/26/21 14:36 Temperature 98.2 F Pulse Rate 96 Respiratory 16 Rate Blood Pressure 155/110 O2 Sat by Pulse 98 Oximetry Medical Decision Making - Medical Decision Making Patient presents with nausea and vomiting. His exam is unremarkable. His laboratory studies show no evidence of DKA or other acute emergency. He is feeling better after fluids. He is stable for discharge. - Lab Data Result diagrams: 09/26/21 15:24 09/26/21 15:24 Lab Results 09/26/21 09/26/21 09/26/21 Range/Units 15:01 15:24 15:24 WBC 7.9 (3.8-10.6) k/uL RBC 4.76 (4.30-5.90) m/uL Hgb 15.1 (13.0-17.5) gm/dL Hct 43.8 (39.0-53.0) % MCV 92.1 (80.0-100.0) fL MCH 31.7 (25.0-35.0) pg MCHC 34.4 (31.0-37.0) g/dL RDW 12.8 (11.5-15.5) % Plt Count 323 (150-450) k/uL MPV 6.6 Neutrophils % (Manual) 55 % Lymphocytes % (Manual) 33 % Monocytes % (Manual) 6 % Eosinophils % (Manual) 6 % Neutrophils # (Manual) 4.35 (1.3-7.7) k/uL Lymphocytes # (Manual) 2.61 (1.0-4.8) k/uL Monocytes # (Manual) 0.47 (0-1.0) k/uL Eosinophils # (Manual) 0.47 (0-0.7) k/uL Nucleated RBCs 0 (0-0) /100 WBC Manual Slide Review Performed RBC Morphology Normal Sodium 139 (137-145) mmol/L Potassium 3.9 (3.5-5.1) mmol/L Chloride 99 (98-107) mmol/L Carbon Dioxide 30 (22-30) mmol/L Anion Gap 10 mmol/L BUN 15 (9-20) mg/dL Creatinine 0.67 (0.66-1.25) mg/dL Est GFR (CKD-EPI)AfAm >90 (>60 ml/min/1.73 sqM) Est GFR (CKD-EPI)NonAf >90 (>60 ml/min/1.73 sqM) Glucose 130 H (74-99) mg/dL POC Glucose (mg/dL) 141 H (75-99) mg/dL POC Glu Manager Dialysis ID Belval, Clementina Calcium 9.1 (8.4-10.2) mg/dL Total Bilirubin 0.6 (0.2-1.3) mg/dL AST 30 (17-59) U/L ALT 20 (4-49) U/L Alkaline Phosphatase 51 (38-126) U/L Total Protein 7.2 (6.3-8.2) g/dL Albumin 4.5 (3.5-5.0) g/dL Lipase 85 (23-300) U/L Urine Color Urine Appearance (Clear) Urine pH (5.0-8.0) Ur Specific [place] (1.001-1.035) Urine Protein (Negative) Urine Glucose (UA) (Negative) Urine Ketones (Negative) Urine Blood (Negative) Urine Nitrite (Negative) Urine Bilirubin (Negative) Urine Urobilinogen (<2.0) mg/dL Ur Leukocyte Esterase (Negative) Urine WBC (0-5) /hpf Amorphous Sediment (None) /hpf 09/26/21 09/26/21 Range/Units 15:27 18:22 WBC (3.8-10.6) k/uL RBC (4.30-5.90) m/uL Hgb (13.0-17.5) gm/dL Hct (39.0-53.0) % MCV (80.0-100.0) fL MCH (25.0-35.0) pg MCHC (31.0-37.0) g/dL RDW (11.5-15.5) % Plt Count (150-450) k/uL MPV Neutrophils % (Manual) % Lymphocytes % (Manual) % Monocytes % (Manual) % Eosinophils % (Manual) % Neutrophils # (Manual) (1.3-7.7) k/uL Lymphocytes # (Manual) (1.0-4.8) k/uL Monocytes # (Manual) (0-1.0) k/uL Eosinophils # (Manual) (0-0.7) k/uL Nucleated RBCs (0-0) /100 WBC Manual Slide Review RBC Morphology Sodium (137-145) mmol/L Potassium (3.5-5.1) mmol/L Chloride (98-107) mmol/L Carbon Dioxide (22-30) mmol/L Anion Gap mmol/L BUN (9-20) mg/dL Creatinine (0.66-1.25) mg/dL Est GFR (CKD-EPI)AfAm (>60 ml/min/1.73 sqM) Est GFR (CKD-EPI)NonAf (>60 ml/min/1.73 sqM) Glucose (74-99) mg/dL POC Glucose (mg/dL) 44 L (75-99) mg/dL POC Glu Manager Dialysis ID Belval, Clementina Calcium (8.4-10.2) mg/dL Total Bilirubin (0.2-1.3) mg/dL AST (17-59) U/L ALT (4-49) U/L Alkaline Phosphatase (38-126) U/L Total Protein (6.3-8.2) g/dL Albumin (3.5-5.0) g/dL Lipase (23-300) U/L Urine Color Light Yellow Urine Appearance Cloudy (Clear) Urine pH 8.0 (5.0-8.0) Ur Specific [place] 1.018 (1.001-1.035) Urine Protein Negative (Negative) Urine Glucose (UA) 4+ H (Negative) Urine Ketones Negative (Negative) Urine Blood Negative (Negative) Urine Nitrite Negative (Negative) Urine Bilirubin Negative (Negative) Urine Urobilinogen <2.0 (<2.0) mg/dL Ur Leukocyte Esterase Negative (Negative) Urine WBC <1 (0-5) /hpf Amorphous Sediment Rare H (None) /hpf Disposition Clinical Impression: Nausea and vomiting Disposition: HOME SELF-CARE Instructions (If sedation given, give patient instructions): Acute Nausea and Vomiting (ED) Is patient prescribed a controlled substance at d/c from ED?: No Referrals: Brown Valenzuela MD [Primary Care Provider] - 1-2 days
== END 2021-09-26 19:03 | disposition home or self-care (01) ==
LOC: EC 13:43
DX: R11.2 Nausea with vomiting, unspecified (principal); J45.909 Unspecified asthma, uncomplicated; E10.40 Type 1 diabetes mellitus with diabetic neuropathy, unspecified; Z87.891 Personal history of nicotine dependence
CPT/HCPCS: 36415; 74018; 80053; 81001; 83690; 85025; 96361; 96374; 99284

== ENCOUNTER 2021-10-09 11:47 | Inpatient (IN) | payer OTHER ==
[2021-10-09] MEDS ORDERED: SODIUM CHLORIDE 0.9% 2,000 ML IV STA (11:56)
[2021-10-09 12:15] LABS: Glucose,Whole Blood >600 mg/dL (75-99)
[2021-10-09 12:40] LABS: Basophils # (A) 0.3 k/uL (0-0.2); Basophils % (A) 1 %; Eosinophils # (A) 0.2 k/uL (0-0.7); Eosinophils % (A) 1 %; HCT 54.2 % (39.0-53.0); HGB 16.2 gm/dL (13.0-17.5); Hypochromasia Marked; Lymphocytes # (A) 2.7 k/uL (1.0-4.8); Lymphocytes % (A) 6 %; MCHC 29.9 g/dL (31.0-37.0); Macrocytosis Moderate; Mean Platelet Volume 8.2; Monocytes # (A) 1.7 k/uL (0-1.0); Monocytes % (A) 4 %; Neutrophils # (A) 39.2 k/uL (1.3-7.7); Neutrophils % (A) 88 %; Platelet Count 507 k/uL (150-450); RBC 5.07 m/uL (4.30-5.90); RDW 12.8 % (11.5-15.5); WBC 44.3 k/uL (3.8-10.6)
[2021-10-09 12:46] LABS: MCV 106.9 fL (80.0-100.0)
--- NOTE | 2021-10-09 12:46 | ED ---
General Adult HPI - General Stated complaint: diabetic issues Time Seen by Provider: 10/09/21 11:56 Source: patient, RN notes reviewed Mode of arrival: ambulatory Limitations: physical limitation - History of Present Illness Initial comments: This a 26-hour male presents emergency department via EMS with chief complaint diabetic issues. Patient son did have hyperglycemia, increasing nausea vomiting patient states he feels dehydrated. Patient is well-known emergency department has chronic issues from noncompliant diabetic. Patient does complain of diffuse abdominal pain no fevers no chest pain or shortness of breath. Patient does not her last time he took insulin. - Related Data Home Medications Medication Instructions Recorded Confirmed Insulin Detemir (Levemir) [Levemir] 25 unit SQ DAILY 08/27/20 10/09/21 Gabapentin 600 mg PO TID PRN 06/29/21 10/09/21 INSULIN ASPART (NovoLOG) [NovoLOG 10 unit SQ AC-TID 06/29/21 10/09/21 (formulary)] Ibuprofen [Motrin] 800 mg PO QID PRN 06/29/21 10/09/21 Allergies Allergy/AdvReac Type Severity Reaction Status Date / Time No Known Allergies Allergy Verified 09/26/21 17:14 Review of Systems ROS Statement: Those systems with pertinent positive or pertinent negative responses have been documented in the HPI. ROS Other: All systems not noted in ROS Statement are negative. Past Medical History Past Medical History: Asthma, Diabetes Mellitus, Skin Disorder Additional Past Medical History / Comment(s): IDDM type I, neuropathy bilateral feet, DKA, eczema. History of Any Multi-Drug Resistant Organisms: None Reported Past Surgical History: Adenoidectomy Additional Past Surgical History / Comment(s): 2002 Past Anesthesia/Blood Transfusion Reactions: No Reported Reaction Past Psychological History: Anxiety, Depression Smoking Status: Former smoker, Vaper Past Alcohol Use History: Occasional Past Drug Use History: Marijuana - Past Family History Mother Family Medical History: CVA/TIA Additional Family Medical History / Comment(s): TIA Father Family Medical History: Hyperlipidemia, Hypertension Additional Family Medical History / Comment(s): . General Exam Limitations: no limitations General appearance: alert, in no apparent distress, lethargic Head exam: Present: atraumatic, normocephalic, normal inspection Eye exam: Present: normal appearance, PERRL, EOMI. Absent: scleral icterus, conjunctival injection, periorbital swelling ENT exam: Present: normal exam, normal oropharynx, mucous membranes moist Neck exam: Present: normal inspection, full ROM. Absent: tenderness, meningismus, lymphadenopathy Respiratory exam: Present: normal lung sounds bilaterally. Absent: respiratory distress, wheezes, rales, rhonchi, stridor Cardiovascular Exam: Present: normal rhythm, tachycardia, normal heart sounds. Absent: systolic murmur, diastolic murmur, rubs, gallop, clicks GI/Abdominal exam: Present: soft, tenderness, normal bowel sounds. Absent: distended, guarding, rebound, rigid Neurological exam: Present: alert Skin exam: Present: warm, dry, intact, normal color. Absent: rash Course Vital Signs 10/09/21 13:00 Temperature 98.0 F Pulse Rate 115 H Respiratory 36 H Rate Blood Pressure 107/85 O2 Sat by Pulse 100 Oximetry Medical Decision Making - Medical Decision Making 26-year-old male presented from for hyperglycemia, nausea vomiting, dehydration. Patient found to be acute DKA, VBG reveals PH of 6.97 pCO2 16,HCO3 4, patient's potassium 7.5., Patient does have dental glucose of 42 with elevated lactic acid. Patient finally in DKA, patient was ordered initially IV fluid bolus, started insulin drip, repeat labs every 4 hours, case discussed with admitting physician Dr. Valenzuela, case discussed with Dr. Montoya. Patient was placed in ICU for close monitoring, insulin drip, fluids - Lab Data Result diagrams: 10/09/21 12:28 10/09/21 12:28 Lab Results 10/09/21 10/09/21 10/09/21 Range/Units 12:05 12:28 12:28 WBC 44.3 H (3.8-10.6) k/uL RBC 5.07 (4.30-5.90) m/uL Hgb 16.2 (13.0-17.5) gm/dL Hct 54.2 H (39.0-53.0) % MCV 106.9 H D (80.0-100.0) fL MCH 32.0 (25.0-35.0) pg MCHC 29.9 L (31.0-37.0) g/dL RDW 12.8 (11.5-15.5) % Plt Count 507 H (150-450) k/uL MPV 8.2 Neutrophils % 88 % Lymphocytes % 6 % Monocytes % 4 % Eosinophils % 1 % Basophils % 1 % Neutrophils # 39.2 H (1.3-7.7) k/uL Lymphocytes # 2.7 (1.0-4.8) k/uL Monocytes # 1.7 H (0-1.0) k/uL Eosinophils # 0.2 (0-0.7) k/uL Basophils # 0.3 H (0-0.2) k/uL Manual Slide Review Performed Polychromasia Present Hypochromasia Marked Poikilocytosis (manual Present Macrocytosis Moderate VBG pH (7.31-7.41) VBG pCO2 (37-51) mmHg VBG HCO3 (24-28) mmol/L Sodium 132 L (137-145) mmol/L Potassium 7.5 H* (3.5-5.1) mmol/L Chloride 90 L (98-107) mmol/L Carbon Dioxide <5 L* (22-30) mmol/L Anion Gap mmol/L BUN 33 H (9-20) mg/dL Creatinine 2.37 H (0.66-1.25) mg/dL Est GFR (CKD-EPI)AfAm 43 (>60 ml/min/1.73 sqM) Est GFR (CKD-EPI)NonAf 37 (>60 ml/min/1.73 sqM) Glucose 1142 H* (74-99) mg/dL POC Glucose (mg/dL) >600 H (75-99) mg/dL POC Glu Health Administrator ID Michelle Harry Plasma Lactic Acid Len (0.7-2.0) mmol/L Calcium 8.5 (8.4-10.2) mg/dL Magnesium 2.7 H (1.6-2.3) mg/dL Total Bilirubin 0.3 (0.2-1.3) mg/dL AST 18 (17-59) U/L ALT 23 (4-49) U/L Alkaline Phosphatase 110 (38-126) U/L Total Protein 7.0 (6.3-8.2) g/dL Albumin 4.8 (3.5-5.0) g/dL Amylase 207 H (30-110) U/L Lipase 968 H (23-300) U/L Acetone, Qual Positive (Negative) 05/17/22 05/17/22 Range/Units 12:28 12:28 WBC (3.8-10.6) k/uL RBC (4.30-5.90) m/uL Hgb (13.0-17.5) gm/dL Hct (39.0-53.0) % MCV (80.0-100.0) fL MCH (25.0-35.0) pg MCHC (31.0-37.0) g/dL RDW (11.5-15.5) % Plt Count (150-450) k/uL MPV Neutrophils % % Lymphocytes % % Monocytes % % Eosinophils % % Basophils % % Neutrophils # (1.3-7.7) k/uL Lymphocytes # (1.0-4.8) k/uL Monocytes # (0-1.0) k/uL Eosinophils # (0-0.7) k/uL Basophils # (0-0.2) k/uL Manual Slide Review Polychromasia Hypochromasia Poikilocytosis (manual Macrocytosis VBG pH 6.97 L* (7.31-7.41) VBG pCO2 16 L* (37-51) mmHg VBG HCO3 4 L* (24-28) mmol/L Sodium (137-145) mmol/L Potassium (3.5-5.1) mmol/L Chloride (98-107) mmol/L Carbon Dioxide (22-30) mmol/L Anion Gap mmol/L BUN (9-20) mg/dL Creatinine (0.66-1.25) mg/dL Est GFR (CKD-EPI)AfAm (>60 ml/min/1.73 sqM) Est GFR (CKD-EPI)NonAf (>60 ml/min/1.73 sqM) Glucose (74-99) mg/dL POC Glucose (mg/dL) (75-99) mg/dL POC Glu Health Administrator ID Plasma Lactic Acid Len 5.6 H* (0.7-2.0) mmol/L Calcium (8.4-10.2) mg/dL Magnesium (1.6-2.3) mg/dL Total Bilirubin (0.2-1.3) mg/dL AST (17-59) U/L ALT (4-49) U/L Alkaline Phosphatase (38-126) U/L Total Protein (6.3-8.2) g/dL Albumin (3.5-5.0) g/dL Amylase (30-110) U/L Lipase (23-300) U/L Acetone, Qual (Negative) Critical Care Time Critical Care Time: Yes Total Critical Care Time: 35 Disposition Clinical Impression: DKA (diabetic ketoacidoses), Tachycardia, Metabolic acidosis, Vomiting, Leukocytosis, Hyperkalemia Disposition: ADMITTED IP TO THIS [facility] Condition: Serious Referrals: Brown Valenzuela MD [Primary Care Provider] - 1-2 days Time of Disposition: 13:26
[2021-10-09 12:51] LABS: ALT 23 U/L (4-49); AST 18 U/L (17-59); African American GFR (CKD) 43 (>60 ml/min/1.73 sqM); Albumin 4.8 g/dL (3.5-5.0); Alkaline Phosphatase 110 U/L (38-126); Amylase 207 U/L (30-110); Blood Urea Nitrogen 33 mg/dL (9-20); Calcium 8.5 mg/dL (8.4-10.2); Chloride 90 mmol/L (98-107); Lipase 968 U/L (23-300); Magnesium 2.7 mg/dL (1.6-2.3); Non-African American GFR(CKD) 37 (>60 ml/min/1.73 sqM); Sodium 132 mmol/L (137-145); Total Bilirubin 0.3 mg/dL (0.2-1.3)
[2021-10-09 12:56] LABS: VBG PH 6.97 (7.31-7.41)
[2021-10-09 13:05] LABS: Carbon Dioxide <5 mmol/L (22-30); Potassium 7.5 mmol/L (3.5-5.1)
[2021-10-09 13:10] LABS: Glucose 1142 mg/dL (74-99)
[2021-10-09] MEDS ORDERED: INSULIN REGULAR BOLUS (FROM DRIP BAG) IV ONE (13:20)
[2021-10-09 13:37] LABS: Poikilocytosis (M) Present; Polychromasia Present
[2021-10-09 13:51] LABS: Appearance,Urine Clear (Clear); Bilirubin,Urine Negative (Negative); Blood,Urine Small (Negative); Color,Urine Light Yellow; Glucose,Urine (UA) 4+ (Negative); Hyaline Casts,Urine 4 /lpf (0-2); Leukocyte Esterase,Urine Negative (Negative); Mucus,Urine Rare /hpf; Nitrite,Urine Negative (Negative); Protein,Urine Trace (Negative); RBC,Urine 1 /hpf (0-5); Specific Gravity,Urine 1.021 (1.001-1.035); Urobilinogen,Urine <2.0 mg/dL (<2.0); WBC,Urine 4 /hpf (0-5)
[2021-10-09] MEDS: INSULIN REGULAR 100 UNIT in SODIUM CHLORIDE 0.9% 100 ML IV SCH (14:02)
[2021-10-09] MEDS: SODIUM CHLORIDE 0.9% 1,000 ML IV SCH ×2 (14:02→21:21)
[2021-10-09 14:06] LABS: Ketones,Urine 3+ (Negative)
[2021-10-09 14:06] LABS: Glucose,Whole Blood >600 mg/dL (75-99)
--- NOTE | 2021-10-09 14:57 | P.CNPUL ---
History of Present Illness Consult date: 10/09/21 Requesting physician: Cirilo Raymond Chief complaint: Acute diabetic ketoacidosis History of present illness: This is a 26-year-old white male patient with known history of type 1 diabetes mellitus with multiple episodes of diabetic ketoacidosis requiring frequent hospitalization, diabetic neuropathy, mild intermittent bronchial asthma, major depression and generalized anxiety disorder with history of multiple overdoses in the past and suicidal attempts, history of medical noncompliance, and marijuana use. Patient presented to the emergency department on 10/09/2021 via EMS for evaluation of diffuse abdominal pain, elevated blood sugars, nausea and vomiting. Patient feels very dehydrated. He does not remember when the last time he took insulin. Patient lab work showed white blood cell count of 44.3, hemoglobin of 16.2, hematocrit of 54.2, his potassium was 7.5, his CO2 was less than 5 on the complete metabolic panel, patient's anion gap could not be measured, his serum glucose was 1142, BUN was 33, and creatinine of 2.37, lactic acid was 5.6, LFTs were within normal limits, his amylase and lipase were elevated at 207 and 968 respectively. Serum acetone was positive. Patient was started on IV fluids and has received 2 L bolus of 0.9 normal saline, he continues on maintenance IV fluids with 0.9 most an indurated 200 ML per hour, insulin infusion was started per DKA protocol. Electrolytes, renal profile, serum glucose recheck are ordered every 4 hours per DKA protocol, venous blood gas was obtained showing pH of 6.97, pCO2 of 16, and bicarbonate concentration of 4. Urinalysis has been ordered. Patient is currently awaiting a bed in the intensive care unit. He appears to be in no acute distress, however he is not able to provide a very good history. Review of Systems All systems: negative Constitutional: Reports weakness, Denies chills, Denies fever Eyes: denies blurred vision, denies pain Ears, nose, mouth and throat: Denies headache, Denies sore throat Cardiovascular: Denies chest pain, Denies shortness of breath Respiratory: Denies cough Gastrointestinal: Reports abdominal pain, Reports nausea, Reports vomiting, Denies diarrhea Musculoskeletal: Denies myalgias Integumentary: Denies pruritus, Denies rash Neurological: Denies numbness, Denies weakness Psychiatric: Denies anxiety, Denies depression Endocrine: Denies fatigue, Denies weight change Past Medical History Past Medical History: Asthma, Diabetes Mellitus, Skin Disorder Additional Past Medical History / Comment(s): IDDM type I, neuropathy bilateral feet, DKA, eczema. History of Any Multi-Drug Resistant Organisms: None Reported Past Surgical History: Adenoidectomy Additional Past Surgical History / Comment(s): 2002 Past Anesthesia/Blood Transfusion Reactions: No Reported Reaction Past Psychological History: Anxiety, Depression Smoking Status: Former smoker, Vaper Past Alcohol Use History: Occasional Past Drug Use History: Marijuana - Past Family History Mother Family Medical History: CVA/TIA Additional Family Medical History / Comment(s): TIA Father Family Medical History: Hyperlipidemia, Hypertension Additional Family Medical History / Comment(s): . Medications and Allergies Home Medications Medication Instructions Recorded Confirmed Type Insulin Detemir (Levemir) [Levemir] 25 unit SQ DAILY 08/27/20 10/09/21 History Gabapentin 600 mg PO TID PRN 06/29/21 10/09/21 History INSULIN ASPART (NovoLOG) [NovoLOG 10 unit SQ AC-TID 06/29/21 10/09/21 History (formulary)] Ibuprofen [Motrin] 800 mg PO QID PRN 06/29/21 10/09/21 History Allergies Allergy/AdvReac Type Severity Reaction Status Date / Time No Known Allergies Allergy Verified 09/26/21 17:14 Physical Exam Vitals: Vital Signs Temp Pulse Resp BP Pulse Ox 10/09/21 13:00 98.0 F 115 H 36 H 107/85 100 Intake and Output 10/08/21 10/09/21 10/09/21 22:59 06:59 14:59 Other: Weight 65.771 kg GENERAL EXAM: Drowsy, but arousable, thin white male, resting on the gurney in the emergency department tachypneic, but comfortable in no apparent distress. HEAD: Normocephalic/atraumatic. EYES: Normal reaction of pupils, equal size. Conjunctiva pink, sclera white. NOSE: Clear with pink turbinates. THROAT: No erythema or exudates. NECK: No masses, no JVD, no thyroid enlargement, no adenopathy. CHEST: No chest wall deformity. Symmetrical expansion. LUNGS: Equal air entry with no crackles, wheeze, rhonchi or dullness. CVS: Regular rate and rhythm, normal S1 and S2, no gallops, no murmurs, no rubs ABDOMEN: Soft, nontender. No hepatosplenomegaly, normal bowel sounds, no guarding or rigidity. EXTREMITIES: No clubbing, no edema, no cyanosis, 2+ pulses and upper and lower extremities. MUSCULOSKELETAL: Muscle strength and tone normal. SPINE: No scoliosis or deformity SKIN: No rashes CENTRAL NERVOUS SYSTEM: Drowsy, but arousable to voice No focal deficits, tone is normal in all 4 extremities. Results - Laboratory Findings CBC and BMP: 10/09/21 12:28 10/09/21 12:28 Abnormal lab findings: Abnormal Labs 10/09/21 10/09/21 10/09/21 12: 12: 12:28 WBC 44.3 H Hct 54.2 H MCV 106.9 H D MCHC 29.9 L Plt Count 507 H Neutrophils # 39.2 H Monocytes # 1.7 H Basophils # 0.3 H VBG pH VBG pCO2 VBG HCO3 Sodium 132 L Potassium 7.5 H* Chloride 90 L Carbon Dioxide <5 L* BUN 33 H Creatinine 2.37 H Glucose 1142 H* POC Glucose (mg/dL) >600 H Plasma Lactic Acid Len Magnesium 2.7 H Amylase 207 H Lipase 968 H 10/09/21 10/09/21 12:28 12:28 WBC Hct MCV MCHC Plt Count Neutrophils # Monocytes # Basophils # VBG pH 6.97 L* VBG pCO2 16 L* VBG HCO3 4 L* Sodium Potassium Chloride Carbon Dioxide BUN Creatinine Glucose POC Glucose (mg/dL) Plasma Lactic Acid Len 5.6 H* Magnesium Amylase Lipase Assessment and Plan Plan: Assessment: #1. Acute diabetic ketoacidosis #2. Acute kidney injury related to severe dehydration #3. Anion gap metabolic acidosis related to DKA and lactic acidosis #4. Type 1 diabetes mellitus, with diabetic neuropathy #5. Multiple admissions for diabetic ketoacidosis #6. Previous history of drug overdose and suicidal attempts #7. History of major depression and generalized anxiety #8. Medical noncompliance #9. Chronic insomnia #10. History of mild intermittent bronchial asthma, inactive #11. History of marijuana use Plan: Continue fluid resuscitation and insulin infusion per DKA protocol Monitor electrolytes, and renal profile every 4 hours Continue close glucose monitoring Blood cultures times two, portable CXR GI/DVT prophylaxis Keep patient nothing by mouth Zofran for nausea Urinalysis has been sent Continue close hemodynamic monitoring in the intensive care units Continue to follow I have personally seen and examined the patient, performed the documentation and the assessment and plan as written. Number of minutes spent on the visit: [15] Time with Patient: Greater than 30
[2021-10-09 15:14] LABS: Glucose,Whole Blood >600 mg/dL (75-99)
--- NOTE | 2021-10-09 15:53 | XR ---
EXAMINATION TYPE: XR chest 1V portable DATE OF EXAM: 10/09/2021 COMPARISON: 07/07/2021 HISTORY: Leukocytosis TECHNIQUE: Single frontal view of the chest is obtained. FINDINGS: There is no focal air space opacity, pleural effusion, or pneumothorax seen. The cardiac silhouette size is within normal limits. The osseous structures are intact. IMPRESSION: No acute process.
[2021-10-09 16:03] LABS: Glucose,Whole Blood >600 mg/dL (75-99)
[2021-10-09] MEDS ORDERED: GABAPENTIN 300 MG CAP PO PRN (16:47)
[2021-10-09 16:48] LABS: African American GFR (CKD) 57 (>60 ml/min/1.73 sqM); Blood Urea Nitrogen 33 mg/dL (9-20); Chloride 103 mmol/L (98-107); Non-African American GFR(CKD) 49 (>60 ml/min/1.73 sqM); Phosphorus 7.7 mg/dL (2.5-4.5); Sodium 141 mmol/L (137-145)
[2021-10-09 16:59] LABS: Glucose 740 mg/dL (74-99); Potassium 6.2 mmol/L (3.5-5.1)
[2021-10-09 17:00] LABS: Carbon Dioxide <5 mmol/L (22-30)
[2021-10-09] MEDS: INSULIN ASPART (NovoLOG) 100 UNIT/ML VIAL SQ SCH (17:03)
[2021-10-09 17:07] LABS: Glucose,Whole Blood >600 mg/dL (75-99)
[2021-10-09 18:01] LABS: Glucose,Whole Blood 510 mg/dL (75-99)
[2021-10-09] MEDS ORDERED: NALOXONE 0.4 MG/ML 1 ML VIAL IV PRN (18:49)
[2021-10-09 19:15] LABS: Glucose,Whole Blood 379 mg/dL (75-99)
[2021-10-09 20:02] LABS: Glucose,Whole Blood 314 mg/dL (75-99)
[2021-10-09 20:09] LABS: Phosphorus 3.2 mg/dL (2.5-4.5); Potassium 5.1 mmol/L (3.5-5.1)
--- NOTE | 2021-10-09 20:34 | HP ---
HISTORY AND PHYSICAL CHIEF COMPLAINT: Lethargy, nausea, vomiting and DKA. HISTORY OF PRESENT ILLNESS: This is another admission for this 26-year-old type 1 depressed, noncompliant, insulin- dependent diabetic. He is coming in almost weekly now. He will stop taking his insulin and start drinking. He comes in with DKA. Today he presented with a blood sugar of 1142 and extremely lethargic. He was vomiting. The pH is 7.97 with a CO2 of 26 and a bicarb of 4. Creatinine was 2.37 and lactic acid was 5.6. Review of systems could not be obtained. The patient was difficult to arouse and noncooperative. Past medical history, family history, and personal and social histories are all otherwise unchanged from his recent admitting and discharge summaries. He has a history of depression, but will not go for treatment. He is normally on gabapentin 600 mg t.i.d. for neuropathy, ProAir, ibuprofen, Levemir 25 units a day and fast-acting to scale. PHYSICAL EXAMINATION: Pulse is 140 and blood pressure is 103/55. He is afebrile. In general he appeared to be slender, very lethargic and dehydrated. Skin was dry. Head, ears, eyes, nose and mouth were grossly normal. Chest was clear. Cardiac exam demonstrated tachycardia and the abdomen was soft and nontender without masses. Extremities were normal. IMPRESSION: 1. Diabetic ketoacidosis. 2. Metabolic acidosis. 3. Dehydration. 4. Depression. PLAN: 1. Bedrest in ICU. 2. DKA protocol. MMODL / IJN: [id number] /
[2021-10-09 21:17] LABS: Glucose,Whole Blood 236 mg/dL (75-99)
[2021-10-09] MEDS: D5-0.45% NACL WITH KCL 20MEQ/L 1,000 ML IV SCH (21:22)
[2021-10-09] MEDS: HEPARIN SODIUM,PORCINE/PF 5,000 UNIT/0.5 ML SYRINGE SQ SCH (21:28)
[2021-10-09 22:16] LABS: Glucose,Whole Blood 220 mg/dL (75-99)
[2021-10-09 23:13] LABS: Glucose,Whole Blood 238 mg/dL (75-99)
[2021-10-10] LABS: Glucose,Whole Blood 205 mg/dL (75-99)
[2021-10-10] MEDS: INSULIN REGULAR 100 UNIT in SODIUM CHLORIDE 0.9% 100 ML IV SCH (01:34)
[2021-10-10 01:35] LABS: Glucose,Whole Blood 170 mg/dL (75-99)
[2021-10-10 02:24] LABS: Glucose,Whole Blood 189 mg/dL (75-99)
[2021-10-10 03:10] LABS: Glucose,Whole Blood 133 mg/dL (75-99)
[2021-10-10 04:07] LABS: Glucose,Whole Blood 145 mg/dL (75-99)
[2021-10-10] MEDS: D5-0.45% NACL WITH KCL 20MEQ/L 1,000 ML IV SCH ×2 (04:38→08:51)
[2021-10-10 06:11] LABS: Glucose,Whole Blood 164 mg/dL (75-99)
[2021-10-10] MEDS ORDERED: INSULIN DETEMIR (LEVEMIR) 100 UNIT/ML SYR SQ SCH (07:00)
[2021-10-10 07:13] LABS: Glucose,Whole Blood 161 mg/dL (75-99)
[2021-10-10] MEDS: HEPARIN SODIUM,PORCINE/PF 5,000 UNIT/0.5 ML SYRINGE SQ SCH ×4 (08:08→21:04)
[2021-10-10] MEDS: PANTOPRAZOLE 40 MG/10 ML VIAL IVP SCH (08:08)
[2021-10-10 08:14] LABS: Glucose,Whole Blood 161 mg/dL (75-99)
[2021-10-10 08:24] LABS: Basophils % (A) 0 %; Eosinophils % (A) 0 %; HCT 41.6 % (39.0-53.0); HGB 14.4 gm/dL (13.0-17.5); Lymphocytes # (A) 1.5 k/uL (1.0-4.8); Lymphocytes % (A) 5 %; MCH 31.9 pg (25.0-35.0); MCHC 34.5 g/dL (31.0-37.0); Mean Platelet Volume 6.6; Monocytes # (A) 1.4 k/uL (0-1.0); Monocytes % (A) 5 %; Neutrophils # (A) 25.1 k/uL (1.3-7.7); Neutrophils % (A) 89 %; Platelet Count 359 k/uL (150-450); RDW 13.3 % (11.5-15.5); WBC 28.4 k/uL (3.8-10.6)
[2021-10-10 08:25] LABS: MCV 92.4 fL (80.0-100.0)
[2021-10-10 08:38] LABS: ALT 17 U/L (4-49); AST 25 U/L (17-59); African American GFR (CKD) >90 (>60 ml/min/1.73 sqM); Albumin 3.9 g/dL (3.5-5.0); Alkaline Phosphatase 77 U/L (38-126); Amylase 210 U/L (30-110); Anion Gap 12 mmol/L; Blood Urea Nitrogen 20 mg/dL (9-20); Calcium 8.3 mg/dL (8.4-10.2); Carbon Dioxide 18 mmol/L (22-30); Chloride 106 mmol/L (98-107); Glucose 163 mg/dL (74-99); Lipase 443 U/L (23-300); Non-African American GFR(CKD) >90 (>60 ml/min/1.73 sqM); Potassium 4.2 mmol/L (3.5-5.1); Sodium 136 mmol/L (137-145); Total Bilirubin 0.4 mg/dL (0.2-1.3); Total Protein 6.3 g/dL (6.3-8.2)
[2021-10-10] MEDS: INSULIN ASPART (NovoLOG) 100 UNIT/ML VIAL SQ SCH ×4 (09:05→21:02)
[2021-10-10 09:27] LABS: Glucose,Whole Blood 184 mg/dL (75-99)
[2021-10-10] MEDS: SODIUM CHLORIDE 0.9% 1,000 ML IV SCH ×2 (09:49→17:48)
[2021-10-10] MEDS: INSULIN DETEMIR (LEVEMIR) 100 UNIT/ML SYR SQ SCH (10:26)
[2021-10-10 11:40] LABS: Glucose,Whole Blood 218 mg/dL (75-99)
--- NOTE | 2021-10-10 11:51 | P.PN ---
Subjective Progress Note Date: 10/10/21 Principal diagnosis: Acute diabetic ketoacidosis This is a 26-year-old white male patient with known history of type 1 diabetes mellitus with multiple episodes of diabetic ketoacidosis requiring frequent hospitalization, diabetic neuropathy, mild intermittent bronchial asthma, major depression and generalized anxiety disorder with history of multiple overdoses in the past and suicidal attempts, history of medical noncompliance, and marijuana use. Patient presented to the emergency department on 10/09/2021 via EMS for evaluation of diffuse abdominal pain, elevated blood sugars, nausea and vomiting. Patient feels very dehydrated. He does not remember when the last time he took insulin. Patient lab work showed white blood cell count of 44.3, hemoglobin of 16.2, hematocrit of 54.2, his potassium was 7.5, his CO2 was less than 5 on the complete metabolic panel, patient's anion gap could not be measured, his serum glucose was 1142, BUN was 33, and creatinine of 2.37, lactic acid was 5.6, LFTs were within normal limits, his amylase and lipase were elevated at 207 and 968 respectively. Serum acetone was positive. Patient was started on IV fluids and has received 2 L bolus of 0.9 normal saline, he continues on maintenance IV fluids with 0.9 most an indurated 200 ML per hour, insulin infusion was started per DKA protocol. Electrolytes, renal profile, serum glucose recheck are ordered every 4 hours per DKA protocol, venous blood gas was obtained showing pH of 6.97, pCO2 of 16, and bicarbonate concentration of 4. Urinalysis has been ordered. Patient is currently awaiting a bed in the intensive care unit. He appears to be in no acute distress, however he is not able to provide a very good history. Reevaluated today on 10/10/21, patient is doing much better today compared to yesterday, he is on insulin at 12.6 units per hour, his anion gap has closed, he is still on D5 45 at 50 mL per hour. Hence today I recommended switching the patient to 0.9 normal saline at 1 25 mL/h, started the patient on Levemir insulin 10 units daily, and start NovoLog sliding scale. Patient has made a significant improvement over the last 24 hours, hence I plan to transfer the patient to a regular medical floor, and his primary care physician will take over the management. White count went down to 28.4. Complete metabolic profile is normal bicarb is 18 anion gap is 12 renal profile is normal Objective - Vital Signs Vital signs: Vital Signs Temp 98.1 F 10/10/21 08:00 Pulse 105 H 10/10/21 11:00 Resp 14 10/10/21 11:00 BP 119/83 10/10/21 11:00 Pulse Ox 96 10/10/21 11:00 Intake & Output 10/09/21 10/10/21 10/10/21 18:59 06:59 18:59 Intake Total 600 1990.344 710.492 Output Total 700 2600 Balance -100 -609.656 710.492 Weight 65.771 kg 65.5 kg Intake: IV 600 1900 450 D5-0.45% NaCl with KCl 1500 450 20Meq/l 1,000 ml @ 150 mls/hr IV .[id number] [facility] Rx# :[id number] Sodium Chloride 0.9% 1, 600 400 000 ml @ 200 mls/hr IV . Q5H [facility] Rx#:[id number] Intake, IV Titration 90.344 260.492 Amount Insulin Regular 100 unit 90.344 10.492 In Sodium Chloride 0.9% 100 ml @ 0.1 UNITS/KG/HR 6.643 mls/hr IV .[id number] [facility] Rx#:[id number] Sodium Chloride 0.9% 1, 250 000 ml @ 125 mls/hr IV . Q8H [facility] Rx#:[id number] Output: Urine 700 2400 Emesis 200 Other: Voiding Method Urinal Urinal Urinal # Voids 1 - Exam Physical Exam: Revealed a 26-year-old white male in no distress. Head: Atraumatic, normocephalic. HEENT:[Neck is supple.] [No neck masses.] [No thyromegaly.] [No JVD.] Chest: [Clear throughout, no crackles, no rhonchi, no wheezes.] Cardiac Exam: [Normal S1 and S2, no S3 gallop, no murmur.] Abdomen: [Soft, nontender, no megaly, no rebound, no guarding, normal bowel sounds.] Extremities: [No clubbing, no edema, no cyanosis.] Neurological Exam: [No focal neurologic deficit.] Alert and oriented 3. Psychiatric: Normal mood and flat affect otherwise normal mental status Skin: No rashes. - Labs CBC & Chem 7: 10/10/21 07:16 10/10/21 07:16 Labs: Abnormal Lab Results - Last 24 Hours (Table) 10/09/21 10/09/21 10/09/21 Range/Units 12:05 12:28 12:28 WBC 44.3 H (3.8-10.6) k/uL Hct 54.2 H (39.0-53.0) % MCV 106.9 H D (80.0-100.0) fL MCHC 29.9 L (31.0-37.0) g/dL Plt Count 507 H (150-450) k/uL Neutrophils # 39.2 H (1.3-7.7) k/uL Monocytes # 1.7 H (0-1.0) k/uL Basophils # 0.3 H (0-0.2) k/uL VBG pH (7.31-7.41) VBG pCO2 (37-51) mmHg VBG HCO3 (24-28) mmol/L Sodium (137-145) mmol/L Potassium (3.5-5.1) mmol/L Chloride (98-107) mmol/L Carbon Dioxide (22-30) mmol/L BUN (9-20) mg/dL Creatinine (0.66-1.25) mg/dL Glucose (74-99) mg/dL POC Glucose (mg/dL) >600 H (75-99) mg/dL Plasma Lactic Acid Len (0.7-2.0) mmol/L Calcium (8.4-10.2) mg/dL Phosphorus (2.5-4.5) mg/dL Magnesium (1.6-2.3) mg/dL Amylase (30-110) U/L Lipase (23-300) U/L Urine Protein Trace H (Negative) Urine Glucose (UA) 4+ H (Negative) Urine Ketones 3+ H (Negative) Urine Blood Small H (Negative) Hyaline Casts 4 H (0-2) /lpf Urine Mucus Rare H (None) /hpf 10/09/21 10/09/21 10/09/21 Range/Units 12:28 12:28 12:28 WBC (3.8-10.6) k/uL Hct (39.0-53.0) % MCV (80.0-100.0) fL MCHC (31.0-37.0) g/dL Plt Count (150-450) k/uL Neutrophils # (1.3-7.7) k/uL Monocytes # (0-1.0) k/uL Basophils # (0-0.2) k/uL VBG pH 6.97 L* (7.31-7.41) VBG pCO2 16 L* (37-51) mmHg VBG HCO3 4 L* (24-28) mmol/L Sodium 132 L (137-145) mmol/L Potassium 7.5 H* (3.5-5.1) mmol/L Chloride 90 L (98-107) mmol/L Carbon Dioxide <5 L* (22-30) mmol/L BUN 33 H (9-20) mg/dL Creatinine 2.37 H (0.66-1.25) mg/dL Glucose 1142 H* (74-99) mg/dL POC Glucose (mg/dL) (75-99) mg/dL Plasma Lactic Acid Len 5.6 H* (0.7-2.0) mmol/L Calcium (8.4-10.2) mg/dL Phosphorus (2.5-4.5) mg/dL Magnesium 2.7 H (1.6-2.3) mg/dL Amylase 207 H (30-110) U/L Lipase 968 H (23-300) U/L Urine Protein (Negative) Urine Glucose (UA) (Negative) Urine Ketones (Negative) Urine Blood (Negative) Hyaline Casts (0-2) /lpf Urine Mucus (None) /hpf 10/09/21 10/09/21 10/09/21 Range/Units 14:00 15:07 16:02 WBC (3.8-10.6) k/uL Hct (39.0-53.0) % MCV (80.0-100.0) fL MCHC (31.0-37.0) g/dL Plt Count (150-450) k/uL Neutrophils # (1.3-7.7) k/uL Monocytes # (0-1.0) k/uL Basophils # (0-0.2) k/uL VBG pH (7.31-7.41) VBG pCO2 (37-51) mmHg VBG HCO3 (24-28) mmol/L Sodium (137-145) mmol/L Potassium (3.5-5.1) mmol/L Chloride (98-107) mmol/L Carbon Dioxide (22-30) mmol/L BUN (9-20) mg/dL Creatinine (0.66-1.25) mg/dL Glucose (74-99) mg/dL POC Glucose (mg/dL) >600 H >600 H >600 H (75-99) mg/dL Plasma Lactic Acid Len (0.7-2.0) mmol/L Calcium (8.4-10.2) mg/dL Phosphorus (2.5-4.5) mg/dL Magnesium (1.6-2.3) mg/dL Amylase (30-110) U/L Lipase (23-300) U/L Urine Protein (Negative) Urine Glucose (UA) (Negative) Urine Ketones (Negative) Urine Blood (Negative) Hyaline Casts (0-2) /lpf Urine Mucus (None) /hpf 10/09/21 10/09/21 10/09/21 Range/Units 16:18 16:38 17:06 WBC (3.8-10.6) k/uL Hct (39.0-53.0) % MCV (80.0-100.0) fL MCHC (31.0-37.0) g/dL Plt Count (150-450) k/uL Neutrophils # (1.3-7.7) k/uL Monocytes # (0-1.0) k/uL Basophils # (0-0.2) k/uL VBG pH (7.31-7.41) VBG pCO2 (37-51) mmHg VBG HCO3 (24-28) mmol/L Sodium (137-145) mmol/L Potassium 6.2 H* (3.5-5.1) mmol/L Chloride (98-107) mmol/L Carbon Dioxide <5 L* (22-30) mmol/L BUN 33 H (9-20) mg/dL Creatinine 1.87 H (0.66-1.25) mg/dL Glucose 740 H* (74-99) mg/dL POC Glucose (mg/dL) >600 H (75-99) mg/dL Plasma Lactic Acid Len 2.3 H* (0.7-2.0) mmol/L Calcium (8.4-10.2) mg/dL Phosphorus 7.7 H (2.5-4.5) mg/dL Magnesium (1.6-2.3) mg/dL Amylase (30-110) U/L Lipase (23-300) U/L Urine Protein (Negative) Urine Glucose (UA) (Negative) Urine Ketones (Negative) Urine Blood (Negative) Hyaline Casts (0-2) /lpf Urine Mucus (None) /hpf 10/09/21 10/09/21 10/09/21 Range/Units 18:01 19:03 19:36 WBC (3.8-10.6) k/uL Hct (39.0-53.0) % MCV (80.0-100.0) fL MCHC (31.0-37.0) g/dL Plt Count (150-450) k/uL Neutrophils # (1.3-7.7) k/uL Monocytes # (0-1.0) k/uL Basophils # (0-0.2) k/uL VBG pH (7.31-7.41) VBG pCO2 (37-51) mmHg VBG HCO3 (24-28) mmol/L Sodium (137-145) mmol/L Potassium (3.5-5.1) mmol/L Chloride (98-107) mmol/L Carbon Dioxide 11 L (22-30) mmol/L BUN 29 H (9-20) mg/dL Creatinine 1.29 H (0.66-1.25) mg/dL Glucose 359 H (74-99) mg/dL POC Glucose (mg/dL) 510 H 379 H (75-99) mg/dL Plasma Lactic Acid Len (0.7-2.0) mmol/L Calcium (8.4-10.2) mg/dL Phosphorus (2.5-4.5) mg/dL Magnesium (1.6-2.3) mg/dL Amylase (30-110) U/L Lipase (23-300) U/L Urine Protein (Negative) Urine Glucose (UA) (Negative) Urine Ketones (Negative) Urine Blood (Negative) Hyaline Casts (0-2) /lpf Urine Mucus (None) /hpf 10/09/21 10/09/21 10/09/21 Range/Units 20:00 21:16 22:13 WBC (3.8-10.6) k/uL Hct (39.0-53.0) % MCV (80.0-100.0) fL MCHC (31.0-37.0) g/dL Plt Count (150-450) k/uL Neutrophils # (1.3-7.7) k/uL Monocytes # (0-1.0) k/uL Basophils # (0-0.2) k/uL VBG pH (7.31-7.41) VBG pCO2 (37-51) mmHg VBG HCO3 (24-28) mmol/L Sodium (137-145) mmol/L Potassium (3.5-5.1) mmol/L Chloride (98-107) mmol/L Carbon Dioxide (22-30) mmol/L BUN (9-20) mg/dL Creatinine (0.66-1.25) mg/dL Glucose (74-99) mg/dL POC Glucose (mg/dL) 314 H 236 H 220 H (75-99) mg/dL Plasma Lactic Acid Len (0.7-2.0) mmol/L Calcium (8.4-10.2) mg/dL Phosphorus (2.5-4.5) mg/dL Magnesium (1.6-2.3) mg/dL Amylase (30-110) U/L Lipase (23-300) U/L Urine Protein (Negative) Urine Glucose (UA) (Negative) Urine Ketones (Negative) Urine Blood (Negative) Hyaline Casts (0-2) /lpf Urine Mucus (None) /hpf 10/09/21 10/09/21 10/10/21 Range/Units 23:11 23:59 01:32 WBC (3.8-10.6) k/uL Hct (39.0-53.0) % MCV (80.0-100.0) fL MCHC (31.0-37.0) g/dL Plt Count (150-450) k/uL Neutrophils # (1.3-7.7) k/uL Monocytes # (0-1.0) k/uL Basophils # (0-0.2) k/uL VBG pH (7.31-7.41) VBG pCO2 (37-51) mmHg VBG HCO3 (24-28) mmol/L Sodium (137-145) mmol/L Potassium (3.5-5.1) mmol/L Chloride (98-107) mmol/L Carbon Dioxide (22-30) mmol/L BUN (9-20) mg/dL Creatinine (0.66-1.25) mg/dL Glucose (74-99) mg/dL POC Glucose (mg/dL) 238 H 205 H 170 H (75-99) mg/dL Plasma Lactic Acid Len (0.7-2.0) mmol/L Calcium (8.4-10.2) mg/dL Phosphorus (2.5-4.5) mg/dL Magnesium (1.6-2.3) mg/dL Amylase (30-110) U/L Lipase (23-300) U/L Urine Protein (Negative) Urine Glucose (UA) (Negative) Urine Ketones (Negative) Urine Blood (Negative) Hyaline Casts (0-2) /lpf Urine Mucus (None) /hpf 10/10/21 10/10/21 10/10/21 Range/Units 02:21 03:07 04:03 WBC (3.8-10.6) k/uL Hct (39.0-53.0) % MCV (80.0-100.0) fL MCHC (31.0-37.0) g/dL Plt Count (150-450) k/uL Neutrophils # (1.3-7.7) k/uL Monocytes # (0-1.0) k/uL Basophils # (0-0.2) k/uL VBG pH (7.31-7.41) VBG pCO2 (37-51) mmHg VBG HCO3 (24-28) mmol/L Sodium (137-145) mmol/L Potassium (3.5-5.1) mmol/L Chloride (98-107) mmol/L Carbon Dioxide (22-30) mmol/L BUN (9-20) mg/dL Creatinine (0.66-1.25) mg/dL Glucose (74-99) mg/dL POC Glucose (mg/dL) 189 H 133 H 145 H (75-99) mg/dL Plasma Lactic Acid Len (0.7-2.0) mmol/L Calcium (8.4-10.2) mg/dL Phosphorus (2.5-4.5) mg/dL Magnesium (1.6-2.3) mg/dL Amylase (30-110) U/L Lipase (23-300) U/L Urine Protein (Negative) Urine Glucose (UA) (Negative) Urine Ketones (Negative) Urine Blood (Negative) Hyaline Casts (0-2) /lpf Urine Mucus (None) /hpf 10/10/21 10/10/21 10/10/21 Range/Units 06:10 07:11 07:16 WBC 28.4 H (3.8-10.6) k/uL Hct (39.0-53.0) % MCV (80.0-100.0) fL MCHC (31.0-37.0) g/dL Plt Count (150-450) k/uL Neutrophils # 25.1 H (1.3-7.7) k/uL Monocytes # 1.4 H (0-1.0) k/uL Basophils # (0-0.2) k/uL VBG pH (7.31-7.41) VBG pCO2 (37-51) mmHg VBG HCO3 (24-28) mmol/L Sodium (137-145) mmol/L Potassium (3.5-5.1) mmol/L Chloride (98-107) mmol/L Carbon Dioxide (22-30) mmol/L BUN (9-20) mg/dL Creatinine (0.66-1.25) mg/dL Glucose (74-99) mg/dL POC Glucose (mg/dL) 164 H 161 H (75-99) mg/dL Plasma Lactic Acid Len (0.7-2.0) mmol/L Calcium (8.4-10.2) mg/dL Phosphorus (2.5-4.5) mg/dL Magnesium (1.6-2.3) mg/dL Amylase (30-110) U/L Lipase (23-300) U/L Urine Protein (Negative) Urine Glucose (UA) (Negative) Urine Ketones (Negative) Urine Blood (Negative) Hyaline Casts (0-2) /lpf Urine Mucus (None) /hpf 10/10/21 10/10/21 10/10/21 Range/Units 07:16 08:13 09:25 WBC (3.8-10.6) k/uL Hct (39.0-53.0) % MCV (80.0-100.0) fL MCHC (31.0-37.0) g/dL Plt Count (150-450) k/uL Neutrophils # (1.3-7.7) k/uL Monocytes # (0-1.0) k/uL Basophils # (0-0.2) k/uL VBG pH (7.31-7.41) VBG pCO2 (37-51) mmHg VBG HCO3 (24-28) mmol/L Sodium 136 L (137-145) mmol/L Potassium (3.5-5.1) mmol/L Chloride (98-107) mmol/L Carbon Dioxide 18 L (22-30) mmol/L BUN (9-20) mg/dL Creatinine (0.66-1.25) mg/dL Glucose 163 H (74-99) mg/dL POC Glucose (mg/dL) 161 H 184 H (75-99) mg/dL Plasma Lactic Acid Len (0.7-2.0) mmol/L Calcium 8.3 L (8.4-10.2) mg/dL Phosphorus (2.5-4.5) mg/dL Magnesium (1.6-2.3) mg/dL Amylase 210 H (30-110) U/L Lipase 443 H (23-300) U/L Urine Protein (Negative) Urine Glucose (UA) (Negative) Urine Ketones (Negative) Urine Blood (Negative) Hyaline Casts (0-2) /lpf Urine Mucus (None) /hpf 10/10/21 Range/Units 11:39 WBC (3.8-10.6) k/uL Hct (39.0-53.0) % MCV (80.0-100.0) fL MCHC (31.0-37.0) g/dL Plt Count (150-450) k/uL Neutrophils # (1.3-7.7) k/uL Monocytes # (0-1.0) k/uL Basophils # (0-0.2) k/uL VBG pH (7.31-7.41) VBG pCO2 (37-51) mmHg VBG HCO3 (24-28) mmol/L Sodium (137-145) mmol/L Potassium (3.5-5.1) mmol/L Chloride (98-107) mmol/L Carbon Dioxide (22-30) mmol/L BUN (9-20) mg/dL Creatinine (0.66-1.25) mg/dL Glucose (74-99) mg/dL POC Glucose (mg/dL) 218 H (75-99) mg/dL Plasma Lactic Acid Len (0.7-2.0) mmol/L Calcium (8.4-10.2) mg/dL Phosphorus (2.5-4.5) mg/dL Magnesium (1.6-2.3) mg/dL Amylase (30-110) U/L Lipase (23-300) U/L Urine Protein (Negative) Urine Glucose (UA) (Negative) Urine Ketones (Negative) Urine Blood (Negative) Hyaline Casts (0-2) /lpf Urine Mucus (None) /hpf Assessment and Plan Assessment: #1. Acute diabetic ketoacidosis #2. Acute kidney injury related to severe dehydration #3. Anion gap metabolic acidosis related to DKA and lactic acidosis #4. Type 1 diabetes mellitus, with diabetic neuropathy #5. Multiple admissions for diabetic ketoacidosis #6. Previous history of drug overdose and suicidal attempts #7. History of major depression and generalized anxiety #8. Medical noncompliance #9. Chronic insomnia #10. History of mild intermittent bronchial asthma, inactive #11. History of marijuana use Recommendation: Transition patient to subcu/sliding scale insulin. Start patient on Levemir insulin Discontinue IV insulin Continue IV fluid 0.9 normal saline at 1 25 mL per hour. Transfer patient out of the ICU to regular medical floor. Will follow on an as-needed basis after transfer out of the ICU. Time with Patient: Less than 30
[2021-10-10 17:43] LABS: Glucose,Whole Blood 181 mg/dL (75-99)
[2021-10-10 20:41] LABS: Glucose,Whole Blood 162 mg/dL (75-99)
[2021-10-11 01:30] LABS: Glucose,Whole Blood 205 mg/dL (75-99)
[2021-10-11] MEDS: INSULIN ASPART (NovoLOG) 100 UNIT/ML VIAL SQ SCH ×7 (01:35→20:39)
[2021-10-11] MEDS: SODIUM CHLORIDE 0.9% 1,000 ML IV SCH ×3 (01:35→19:44)
[2021-10-11 07:02] LABS: Glucose,Whole Blood 197 mg/dL (75-99)
[2021-10-11] MEDS: HEPARIN SODIUM,PORCINE/PF 5,000 UNIT/0.5 ML SYRINGE SQ SCH ×2 (09:21→19:46)
[2021-10-11] MEDS: INSULIN DETEMIR (LEVEMIR) 100 UNIT/ML SYR SQ SCH (09:21)
[2021-10-11] MEDS: PANTOPRAZOLE 40 MG/10 ML VIAL IVP SCH (09:22)
--- NOTE | 2021-10-11 10:27 | P.PN ---
Subjective Progress Note Date: 10/10/21 Patient is a 26-year-old male with known history of diabetes type 1 with multiple episodes of diabetic ketoacidosis and frequent hospitalization, asthma major depression and generalized anxiety disorder and multiple episodes of overdose and suicide attempt in the past and medication noncompliance presents to ER with complaints of nausea vomiting, diffuse abdominal pain and elevated blood sugars. Patient was found to be in DKA and was admitted to MICU with DKA protocol. 10/10/2021. Patient is currently resting in the bed. Awake and alert but lethargic and drowsy. DKA has resolved and patient was started on subcu insulin and insulin sliding scale. No fever no chills. No cough or sputum production. Patient was nauseated. No complaints of chest pain or shortness of breath. Laboratory data showed WBC trending down to 28.4 hemoglobin 14.4 platelets 359 Sodium 136 potassium 4.2 chloride 106 bicarb is 18 BUN 20 and creatinine 0.7 blood sugar is 163 and calcium 8.3 amylase 210 lipase 443. current medications reviewed. Objective - Vital Signs Vital signs: Vital Signs Temp 98.1 F 10/10/21 08:00 Pulse 108 H 10/10/21 09:00 Resp 14 10/10/21 09:00 BP 107/81 10/10/21 09:00 Pulse Ox 96 10/10/21 09:00 Intake & Output 10/09/21 10/10/21 10/10/21 18:59 06:59 18:59 Intake Total 600 1990.344 450 Output Total 700 2600 Balance -100 -609.656 450 Weight 65.771 kg 65.5 kg Intake: IV 600 1900 450 D5-0.45% NaCl with KCl 1500 450 20Meq/l 1,000 ml @ 150 mls/hr IV .[id number] [facility] Rx# :[id number] Sodium Chloride 0.9% 1, 600 400 000 ml @ 200 mls/hr IV . Q5H [facility] Rx#:[id number] Intake, IV Titration 90.344 Amount Insulin Regular 100 unit 90.344 In Sodium Chloride 0.9% 100 ml @ 0.1 UNITS/KG/HR 6.643 mls/hr IV .[id number] [facility] Rx#:[id number] Output: Urine 700 2400 Emesis 200 Other: Voiding Method Urinal Urinal Urinal # Voids 1 - Exam PHYSICAL EXAMINATION: Patient is lying in the bed comfortably, no acute distress, awake alert and oriented. Lethargic and drowsy.. HEENT: Normocephalic. Neck is supple. Pupils reactive. Nostrils clear. Oral cavity is moist. Neck reveals no JVD, carotid bruits, or thyromegaly. CHEST EXAMINATION: Trachea is central. Symmetrical expansion. Lung brady clear to auscultation and percussion. CARDIAC: Normal S1, S2 with no gallops. No murmurs ABDOMEN: Soft. Bowel sounds normal. No organomegaly. No abdominal bruits. Extremities: reveal no edema. No clubbing or cyanosis Neurologically awake, alert, oriented x3 with well-coordinated movements. No focal deficits noted Skin: No rash or skin lesions. Psychiatric: Coperative. Nonsuicidal Musculoskeletal: No joint swelling or deformity. Normal range of motion. - Labs CBC & Chem 7: 10/10/21 07:16 10/10/21 07:16 Labs: Abnormal Lab Results - Last 24 Hours (Table) 10/09/21 10/09/21 10/09/21 Range/Units 12:05 12:28 12:28 WBC 44.3 H (3.8-10.6) k/uL Hct 54.2 H (39.0-53.0) % MCV 106.9 H D (80.0-100.0) fL MCHC 29.9 L (31.0-37.0) g/dL Plt Count 507 H (150-450) k/uL Neutrophils # 39.2 H (1.3-7.7) k/uL Monocytes # 1.7 H (0-1.0) k/uL Basophils # 0.3 H (0-0.2) k/uL VBG pH (7.31-7.41) VBG pCO2 (37-51) mmHg VBG HCO3 (24-28) mmol/L Sodium (137-145) mmol/L Potassium (3.5-5.1) mmol/L Chloride (98-107) mmol/L Carbon Dioxide (22-30) mmol/L BUN (9-20) mg/dL Creatinine (0.66-1.25) mg/dL Glucose (74-99) mg/dL POC Glucose (mg/dL) >600 H (75-99) mg/dL Plasma Lactic Acid Len (0.7-2.0) mmol/L Calcium (8.4-10.2) mg/dL Phosphorus (2.5-4.5) mg/dL Magnesium (1.6-2.3) mg/dL Amylase (30-110) U/L Lipase (23-300) U/L Urine Protein Trace H (Negative) Urine Glucose (UA) 4+ H (Negative) Urine Ketones 3+ H (Negative) Urine Blood Small H (Negative) Hyaline Casts 4 H (0-2) /lpf Urine Mucus Rare H (None) /hpf 10/09/21 10/09/21 10/09/21 Range/Units 12:28 12:28 12:28 WBC (3.8-10.6) k/uL Hct (39.0-53.0) % MCV (80.0-100.0) fL MCHC (31.0-37.0) g/dL Plt Count (150-450) k/uL Neutrophils # (1.3-7.7) k/uL Monocytes # (0-1.0) k/uL Basophils # (0-0.2) k/uL VBG pH 6.97 L* (7.31-7.41) VBG pCO2 16 L* (37-51) mmHg VBG HCO3 4 L* (24-28) mmol/L Sodium 132 L (137-145) mmol/L Potassium 7.5 H* (3.5-5.1) mmol/L Chloride 90 L (98-107) mmol/L Carbon Dioxide <5 L* (22-30) mmol/L BUN 33 H (9-20) mg/dL Creatinine 2.37 H (0.66-1.25) mg/dL Glucose 1142 H* (74-99) mg/dL POC Glucose (mg/dL) (75-99) mg/dL Plasma Lactic Acid Len 5.6 H* (0.7-2.0) mmol/L Calcium (8.4-10.2) mg/dL Phosphorus (2.5-4.5) mg/dL Magnesium 2.7 H (1.6-2.3) mg/dL Amylase 207 H (30-110) U/L Lipase 968 H (23-300) U/L Urine Protein (Negative) Urine Glucose (UA) (Negative) Urine Ketones (Negative) Urine Blood (Negative) Hyaline Casts (0-2) /lpf Urine Mucus (None) /hpf 10/09/21 10/09/21 10/09/21 Range/Units 14:00 15:07 16:02 WBC (3.8-10.6) k/uL Hct (39.0-53.0) % MCV (80.0-100.0) fL MCHC (31.0-37.0) g/dL Plt Count (150-450) k/uL Neutrophils # (1.3-7.7) k/uL Monocytes # (0-1.0) k/uL Basophils # (0-0.2) k/uL VBG pH (7.31-7.41) VBG pCO2 (37-51) mmHg VBG HCO3 (24-28) mmol/L Sodium (137-145) mmol/L Potassium (3.5-5.1) mmol/L Chloride (98-107) mmol/L Carbon Dioxide (22-30) mmol/L BUN (9-20) mg/dL Creatinine (0.66-1.25) mg/dL Glucose (74-99) mg/dL POC Glucose (mg/dL) >600 H >600 H >600 H (75-99) mg/dL Plasma Lactic Acid Len (0.7-2.0) mmol/L Calcium (8.4-10.2) mg/dL Phosphorus (2.5-4.5) mg/dL Magnesium (1.6-2.3) mg/dL Amylase (30-110) U/L Lipase (23-300) U/L Urine Protein (Negative) Urine Glucose (UA) (Negative) Urine Ketones (Negative) Urine Blood (Negative) Hyaline Casts (0-2) /lpf Urine Mucus (None) /hpf 10/09/21 10/09/21 10/09/21 Range/Units 16:18 16:38 17:06 WBC (3.8-10.6) k/uL Hct (39.0-53.0) % MCV (80.0-100.0) fL MCHC (31.0-37.0) g/dL Plt Count (150-450) k/uL Neutrophils # (1.3-7.7) k/uL Monocytes # (0-1.0) k/uL Basophils # (0-0.2) k/uL VBG pH (7.31-7.41) VBG pCO2 (37-51) mmHg VBG HCO3 (24-28) mmol/L Sodium (137-145) mmol/L Potassium 6.2 H* (3.5-5.1) mmol/L Chloride (98-107) mmol/L Carbon Dioxide <5 L* (22-30) mmol/L BUN 33 H (9-20) mg/dL Creatinine 1.87 H (0.66-1.25) mg/dL Glucose 740 H* (74-99) mg/dL POC Glucose (mg/dL) >600 H (75-99) mg/dL Plasma Lactic Acid Len 2.3 H* (0.7-2.0) mmol/L Calcium (8.4-10.2) mg/dL Phosphorus 7.7 H (2.5-4.5) mg/dL Magnesium (1.6-2.3) mg/dL Amylase (30-110) U/L Lipase (23-300) U/L Urine Protein (Negative) Urine Glucose (UA) (Negative) Urine Ketones (Negative) Urine Blood (Negative) Hyaline Casts (0-2) /lpf Urine Mucus (None) /hpf 10/09/21 10/09/21 10/09/21 Range/Units 18:01 19:03 19:36 WBC (3.8-10.6) k/uL Hct (39.0-53.0) % MCV (80.0-100.0) fL MCHC (31.0-37.0) g/dL Plt Count (150-450) k/uL Neutrophils # (1.3-7.7) k/uL Monocytes # (0-1.0) k/uL Basophils # (0-0.2) k/uL VBG pH (7.31-7.41) VBG pCO2 (37-51) mmHg VBG HCO3 (24-28) mmol/L Sodium (137-145) mmol/L Potassium (3.5-5.1) mmol/L Chloride (98-107) mmol/L Carbon Dioxide 11 L (22-30) mmol/L BUN 29 H (9-20) mg/dL Creatinine 1.29 H (0.66-1.25) mg/dL Glucose 359 H (74-99) mg/dL POC Glucose (mg/dL) 510 H 379 H (75-99) mg/dL Plasma Lactic Acid Len (0.7-2.0) mmol/L Calcium (8.4-10.2) mg/dL Phosphorus (2.5-4.5) mg/dL Magnesium (1.6-2.3) mg/dL Amylase (30-110) U/L Lipase (23-300) U/L Urine Protein (Negative) Urine Glucose (UA) (Negative) Urine Ketones (Negative) Urine Blood (Negative) Hyaline Casts (0-2) /lpf Urine Mucus (None) /hpf 10/09/21 10/09/21 10/09/21 Range/Units 20:00 21:16 22:13 WBC (3.8-10.6) k/uL Hct (39.0-53.0) % MCV (80.0-100.0) fL MCHC (31.0-37.0) g/dL Plt Count (150-450) k/uL Neutrophils # (1.3-7.7) k/uL Monocytes # (0-1.0) k/uL Basophils # (0-0.2) k/uL VBG pH (7.31-7.41) VBG pCO2 (37-51) mmHg VBG HCO3 (24-28) mmol/L Sodium (137-145) mmol/L Potassium (3.5-5.1) mmol/L Chloride (98-107) mmol/L Carbon Dioxide (22-30) mmol/L BUN (9-20) mg/dL Creatinine (0.66-1.25) mg/dL Glucose (74-99) mg/dL POC Glucose (mg/dL) 314 H 236 H 220 H (75-99) mg/dL Plasma Lactic Acid Len (0.7-2.0) mmol/L Calcium (8.4-10.2) mg/dL Phosphorus (2.5-4.5) mg/dL Magnesium (1.6-2.3) mg/dL Amylase (30-110) U/L Lipase (23-300) U/L Urine Protein (Negative) Urine Glucose (UA) (Negative) Urine Ketones (Negative) Urine Blood (Negative) Hyaline Casts (0-2) /lpf Urine Mucus (None) /hpf 10/09/21 10/09/21 10/10/21 Range/Units 23:11 23:59 01:32 WBC (3.8-10.6) k/uL Hct (39.0-53.0) % MCV (80.0-100.0) fL MCHC (31.0-37.0) g/dL Plt Count (150-450) k/uL Neutrophils # (1.3-7.7) k/uL Monocytes # (0-1.0) k/uL Basophils # (0-0.2) k/uL VBG pH (7.31-7.41) VBG pCO2 (37-51) mmHg VBG HCO3 (24-28) mmol/L Sodium (137-145) mmol/L Potassium (3.5-5.1) mmol/L Chloride (98-107) mmol/L Carbon Dioxide (22-30) mmol/L BUN (9-20) mg/dL Creatinine (0.66-1.25) mg/dL Glucose (74-99) mg/dL POC Glucose (mg/dL) 238 H 205 H 170 H (75-99) mg/dL Plasma Lactic Acid Len (0.7-2.0) mmol/L Calcium (8.4-10.2) mg/dL Phosphorus (2.5-4.5) mg/dL Magnesium (1.6-2.3) mg/dL Amylase (30-110) U/L Lipase (23-300) U/L Urine Protein (Negative) Urine Glucose (UA) (Negative) Urine Ketones (Negative) Urine Blood (Negative) Hyaline Casts (0-2) /lpf Urine Mucus (None) /hpf 10/10/21 10/10/21 10/10/21 Range/Units 02:21 03:07 04:03 WBC (3.8-10.6) k/uL Hct (39.0-53.0) % MCV (80.0-100.0) fL MCHC (31.0-37.0) g/dL Plt Count (150-450) k/uL Neutrophils # (1.3-7.7) k/uL Monocytes # (0-1.0) k/uL Basophils # (0-0.2) k/uL VBG pH (7.31-7.41) VBG pCO2 (37-51) mmHg VBG HCO3 (24-28) mmol/L Sodium (137-145) mmol/L Potassium (3.5-5.1) mmol/L Chloride (98-107) mmol/L Carbon Dioxide (22-30) mmol/L BUN (9-20) mg/dL Creatinine (0.66-1.25) mg/dL Glucose (74-99) mg/dL POC Glucose (mg/dL) 189 H 133 H 145 H (75-99) mg/dL Plasma Lactic Acid Len (0.7-2.0) mmol/L Calcium (8.4-10.2) mg/dL Phosphorus (2.5-4.5) mg/dL Magnesium (1.6-2.3) mg/dL Amylase (30-110) U/L Lipase (23-300) U/L Urine Protein (Negative) Urine Glucose (UA) (Negative) Urine Ketones (Negative) Urine Blood (Negative) Hyaline Casts (0-2) /lpf Urine Mucus (None) /hpf 10/10/21 10/10/21 10/10/21 Range/Units 06:10 07:11 07:16 WBC 28.4 H (3.8-10.6) k/uL Hct (39.0-53.0) % MCV (80.0-100.0) fL MCHC (31.0-37.0) g/dL Plt Count (150-450) k/uL Neutrophils # 25.1 H (1.3-7.7) k/uL Monocytes # 1.4 H (0-1.0) k/uL Basophils # (0-0.2) k/uL VBG pH (7.31-7.41) VBG pCO2 (37-51) mmHg VBG HCO3 (24-28) mmol/L Sodium (137-145) mmol/L Potassium (3.5-5.1) mmol/L Chloride (98-107) mmol/L Carbon Dioxide (22-30) mmol/L BUN (9-20) mg/dL Creatinine (0.66-1.25) mg/dL Glucose (74-99) mg/dL POC Glucose (mg/dL) 164 H 161 H (75-99) mg/dL Plasma Lactic Acid Len (0.7-2.0) mmol/L Calcium (8.4-10.2) mg/dL Phosphorus (2.5-4.5) mg/dL Magnesium (1.6-2.3) mg/dL Amylase (30-110) U/L Lipase (23-300) U/L Urine Protein (Negative) Urine Glucose (UA) (Negative) Urine Ketones (Negative) Urine Blood (Negative) Hyaline Casts (0-2) /lpf Urine Mucus (None) /hpf 10/10/21 10/10/21 10/10/21 Range/Units 07:16 08:13 09:25 WBC (3.8-10.6) k/uL Hct (39.0-53.0) % MCV (80.0-100.0) fL MCHC (31.0-37.0) g/dL Plt Count (150-450) k/uL Neutrophils # (1.3-7.7) k/uL Monocytes # (0-1.0) k/uL Basophils # (0-0.2) k/uL VBG pH (7.31-7.41) VBG pCO2 (37-51) mmHg VBG HCO3 (24-28) mmol/L Sodium 136 L (137-145) mmol/L Potassium (3.5-5.1) mmol/L Chloride (98-107) mmol/L Carbon Dioxide 18 L (22-30) mmol/L BUN (9-20) mg/dL Creatinine (0.66-1.25) mg/dL Glucose 163 H (74-99) mg/dL POC Glucose (mg/dL) 161 H 184 H (75-99) mg/dL Plasma Lactic Acid Len (0.7-2.0) mmol/L Calcium 8.3 L (8.4-10.2) mg/dL Phosphorus (2.5-4.5) mg/dL Magnesium (1.6-2.3) mg/dL Amylase 210 H (30-110) U/L Lipase 443 H (23-300) U/L Urine Protein (Negative) Urine Glucose (UA) (Negative) Urine Ketones (Negative) Urine Blood (Negative) Hyaline Casts (0-2) /lpf Urine Mucus (None) /hpf Assessment and Plan Assessment: Acute diabetic ketoacidosis due to medication noncompliance with insulin dose Anion gap metabolic acidosis secondary to DKA and lactic acidosis Acute kidney injury acutely prerenal improved now. Diabetes type 1 Diabetic peripheral neuropathy Previous admissions with DKA History of admissions with drug overdose and suicide attempt in Major depression generalized anxiety disorder Chronic insomnia Intermittent bronchial asthma History of marijuana use Plan: Patient will be continued on IV hydration with normal saline. Insulin drip has been discontinued and patient was started on subcu insulin. Titrate dose as needed. Follow-up CBC and BMP tomorrow. Leukocytosis is trending down. No evidence of infection noted. Blood cultures have been negative. Continue to follow closely. Patient is being transferred out of MICU today. Time with Patient: Greater than 30
[2021-10-11 10:34] LABS: Basophils % (A) 0 %; Eosinophils # (A) 0.1 k/uL (0-0.7); Eosinophils % (A) 1 %; HCT 42.5 % (39.0-53.0); HGB 14.4 gm/dL (13.0-17.5); Lymphocytes # (A) 1.6 k/uL (1.0-4.8); Lymphocytes % (A) 13 %; MCH 31.9 pg (25.0-35.0); MCHC 33.9 g/dL (31.0-37.0); MCV 94.3 fL (80.0-100.0); Mean Platelet Volume 6.9; Monocytes # (A) 0.6 k/uL (0-1.0); Monocytes % (A) 5 %; Neutrophils # (A) 9.8 k/uL (1.3-7.7); Neutrophils % (A) 81 %; Platelet Count 266 k/uL (150-450); RBC 4.51 m/uL (4.30-5.90); RDW 13.2 % (11.5-15.5); WBC 12.1 k/uL (3.8-10.6)
[2021-10-11 10:48] LABS: African American GFR (CKD) >90 (>60 ml/min/1.73 sqM); Anion Gap 8 mmol/L; Blood Urea Nitrogen 10 mg/dL (9-20); Calcium 8.3 mg/dL (8.4-10.2); Carbon Dioxide 26 mmol/L (22-30); Chloride 101 mmol/L (98-107); Glucose 307 mg/dL (74-99); Non-African American GFR(CKD) >90 (>60 ml/min/1.73 sqM); Potassium 4.3 mmol/L (3.5-5.1); Sodium 135 mmol/L (137-145)
[2021-10-11 11:45] LABS: Glucose,Whole Blood 257 mg/dL (75-99)
[2021-10-11] MEDS ORDERED: BENZOCAINE/MENTHOL LOZENG 1 EACH LOZENGE MUCOUS MEM PRN (12:17)
[2021-10-11 13:12] VITALS: BMI 21.3
[2021-10-11 17:20] LABS: Glucose,Whole Blood 68 mg/dL (75-99)
[2021-10-11 18:19] LABS: Glucose,Whole Blood 126 mg/dL (75-99)
[2021-10-11 19:50] LABS: Glucose,Whole Blood 232 mg/dL (75-99)
[2021-10-11 20:34] VITALS: RESP 18
--- NOTE | 2021-10-11 23:49 | P.PN ---
Subjective Progress Note Date: 10/11/21 Patient is a 26-year-old male with known history of diabetes type 1 with multiple episodes of diabetic ketoacidosis and frequent hospitalization, asthma major depression and generalized anxiety disorder and multiple episodes of overdose and suicide attempt in the past and medication noncompliance presents to ER with complaints of nausea vomiting, diffuse abdominal pain and elevated blood sugars. Patient was found to be in DKA and was admitted to MICU with DKA protocol. 10/10/2021. Patient is currently resting in the bed. Awake and alert but lethargic and drowsy. DKA has resolved and patient was started on subcu insulin and insulin sliding scale. No fever no chills. No cough or sputum production. Patient was nauseated. No complaints of chest pain or shortness of breath. Laboratory data showed WBC trending down to 28.4 hemoglobin 14.4 platelets 359 Sodium 136 potassium 4.2 chloride 106 bicarb is 18 BUN 20 and creatinine 0.7 blood sugar is 163 and calcium 8.3 amylase 210 lipase 443. 10/11/2021 Patient is seen and evaluated in follow-up this morning and continues with abdominal pain and sore throat and reports to not really tolerating full diet due to pain and requesting full liquids. Patient is continued on IV hydration and repeat labs within normal limits. Continued on accuchecks achs and as needed. Patient denies any further vomiting but reports to having some intermittent nausea. Patient denies chest pain or shortness of breath. Patient is afebrile. Adjustments made to insulins including pre-meal and long acting and will continue to monitor closely. Review of systems: Constitutional: No reports of fatigue, fever, or chills Cardiovascular: No reports of chest pain or palpitations Respiratory: No reports of shortness of breath or cough GI: reports of some mild nausea, no reports of vomiting, or diarrhea, reports throat pain and no real appetite : No reports of dysuria or retention Neurovascular: No reports of weakness or numbness All medications have been reviewed Active Medications Benzocaine/Menthol (Benzocaine/Menthol Lozeng 1 Each Lozenge) 1 each MUCOUS MEM Q4HR PRN PRN Reason: Sore Throat Last Admin: 10/11/21 13:11 Dose: 1 each Documented by: Gabapentin (Gabapentin 300 Mg Cap) 600 mg PO TID PRN PRN Reason: Pain Heparin Sodium (Porcine) (Heparin Sodium,Porcine/Pf 5,000 Unit/0.5 Ml Syringe) 5,000 unit SQ Q12HR [facility] Last Admin: 10/11/21 09:21 Dose: Not Given Documented by: Sodium Chloride (Saline 0.9%) 1,000 mls @ 125 mls/hr IV .Q8H [facility] Last Admin: 10/11/21 09:26 Dose: 125 mls/hr Documented by: Insulin Aspart (Insulin Aspart (Novolog) 100 Unit/Ml Vial) 0 unit SQ [id number] [facility]; Protocol Last Admin: 10/11/21 13:08 Dose: 4 unit Documented by: Insulin Aspart (Insulin Aspart (Novolog) 100 Unit/Ml Vial) 5 unit SQ AC-TID [facility] Last Admin: 10/11/21 13:08 Dose: 5 unit Documented by: Insulin Detemir (Insulin Detemir (Levemir) 100 Unit/Ml Syr) 15 unit SQ DAILY@0700 [facility] Naloxone HCl (Naloxone 0.4 Mg/Ml 1 Ml Vial) 0.2 mg IV Q2M PRN PRN Reason: Opioid Reversal Pantoprazole Sodium (Pantoprazole 40 Mg/10 Ml Vial) 40 mg IVP DAILY [facility] Last Admin: 10/11/21 09:22 Dose: 40 mg Documented by: PHYSICAL EXAMINATION: Patient is lying in the bed comfortably, no acute distress, awake, alert and oriented. HEENT: Normocephalic. Neck is supple. Pupils reactive. Nostrils clear. Oral cavity is moist. Neck reveals no JVD, carotid bruits, or thyromegaly. CHEST EXAMINATION: Trachea is central. Symmetrical expansion. Lung brady clear to auscultation and percussion. CARDIAC: Normal S1, S2 with no gallops. No murmurs ABDOMEN: Soft. Bowel sounds normal. No organomegaly. No abdominal bruits. Extremities: reveal no edema. No clubbing or cyanosis Neurologically awake, alert, oriented x3 with well-coordinated movements. No focal deficits noted Skin: No rash or skin lesions. Psychiatric: Cooperative. Non-suicidal Musculoskeletal: No joint swelling or deformity. Normal range of motion. Assessment: Acute diabetic ketoacidosis due to medication noncompliance with insulin dose Anion gap metabolic acidosis secondary to DKA and lactic acidosis Acute kidney injury acutely prerenal, improved now. Diabetes type 1, uncontrolled with hyperglycemia Diabetic peripheral neuropathy Previous admissions with DKA History of admissions with drug overdose and suicide attempt Major depression generalized anxiety disorder Chronic insomnia Intermittent bronchial asthma History of marijuana use GI prophylaxis DVT prophylaxis full code Plan: Patient will be continued on IV hydration with normal saline. Insulins have been adjusted including pre-meal and long acting and will also continue with sliding scale and continue to monitor accuchecks achs and as needed. Encouraged oral intake and increased activity as tolerated. Patient denies any suicide ideation. Patient with a sore throat and will add cepacol. Blood cultures remain negative. Continue to follow closely. Prognosis is guarded. Possible discharge in 24 hours. The impression and plan of care has been dictated by Meli Gustafson, Nurse Practitioner as directed. Dr. Lawrence MD I have performed a history and examination and MDM of this patient, discussed the same with the dictator, and agree with the dictator's assessment and plan as written ,documented as a scribe. Based on total visit time, I have performed more than 50% of the visit. Objective - Vital Signs Vital signs: Vital Signs Temp 98.0 F 10/11/21 04:03 Pulse 83 10/11/21 04:03 Resp 16 10/11/21 04:03 BP 90/58 10/11/21 04:03 Pulse Ox 96 10/11/21 04:03 Intake & Output 10/10/21 10/11/21 10/11/21 18:59 06:59 18:59 Intake Total 7935.801 7730 Output Total 500 Balance 7495.426 1608 Intake: IV 450 D5-0.45% NaCl with KCl 450 20Meq/l 1,000 ml @ 150 mls/hr IV .[id number] [facility] Rx# :[id number] Intake, IV Titration 714.035 5161 Amount Insulin Regular 100 unit 10.492 In Sodium Chloride 0.9% 100 ml @ 0.1 UNITS/KG/HR 6.643 mls/hr IV .[id number] [facility] Rx#:[id number] Sodium Chloride 0.9% 1, 875 1560 000 ml @ 125 mls/hr IV . Q8H [facility] Rx#:[id number] Oral 420 Output: Urine 500 Other: Voiding Method Urinal # Voids 2 3 - Labs CBC & Chem 7: 10/11/21 09:58 10/11/21 09:58 Labs: Abnormal Lab Results - Last 24 Hours (Table) 10/10/21 10/10/21 10/10/21 Range/Units 11:39 17:41 20:38 POC Glucose (mg/dL) 218 H 181 H 162 H (75-99) mg/dL 10/11/21 10/11/21 Range/Units 01:28 07:00 POC Glucose (mg/dL) 205 H 197 H (75-99) mg/dL Microbiology - Last 24 Hours (Table) 10/09/21 14:19 Blood Culture - Preliminary Blood No Growth after 24 hours 10/09/21 14:19 Blood Culture - Preliminary Blood No Growth after 24 hours
[2021-10-12 01:52] LABS: Glucose,Whole Blood 297 mg/dL (75-99)
[2021-10-12] MEDS: INSULIN ASPART (NovoLOG) 100 UNIT/ML VIAL SQ SCH (01:55)
[2021-10-12] MEDS: SODIUM CHLORIDE 0.9% 1,000 ML IV SCH (01:55)
[2021-10-12 04:51] VITALS: BP 121/78; PULSE 79; TEMP 98.2
[2021-10-12] MEDS ORDERED: INSULIN DETEMIR (LEVEMIR) 100 UNIT/ML SYR SQ SCH (07:00)
--- NOTE | 2021-10-12 13:26 | P.DS ---
Providers Date of admission: 10/09/21 13:33 Expected date of discharge: 10/12/21 Attending physician: Brown Valenzuela Consults: 10/09/21 13:22 Consult Physician Stat Consulting Provider: Jenna Montoya Consult Reason/Comments: ICU management Do you want consulting provider notified?: Already Contacted Primary care physician: Brown Valenzuela Hospital Course: Final diagnosis Acute diabetic ketoacidosis due to medication noncompliance with insulin dose Anion gap metabolic acidosis secondary to DKA and lactic acidosis Acute kidney injury acutely prerenal, improved now. Diabetes type 1, uncontrolled with hyperglycemia Diabetic peripheral neuropathy Previous admissions with DKA History of admissions with drug overdose and suicide attempt Major depression generalized anxiety disorder Chronic insomnia Intermittent bronchial asthma History of marijuana use GI prophylaxis DVT prophylaxis full code Discharge disposition Patient is leaving AGAINST MEDICAL ADVICE and risks versus benefits were explained and patient sign the paperwork. Patient will follow-up with Dr. Valenzuela in the outpatient setting upon discharge. Patient is to continue with current diabetes management regimen along with consistent carb diet. Total time taken is greater than 35 minutes. Hospital course This is a 26-year-old male who was recently admitted with DKA associated with nausea and vomiting and intolerance to oral intake and was admitted to the ICU for close monitoring and follow DKA protocol. Patient improved although continued to have some intolerance to food with associated nausea. Per nursing report this morning patient was tolerating diet and anxious to leave and did not want to wait for the doctors to round to be discharged. Patient left AGAINST MEDICAL ADVICE and was instructed to follow-up with primary care provider Dr. Valenzuela in the outpatient setting. Currently no reports of chest pain, shortness of breath, or palpitations. Patient is afebrile. No reports of nausea or vomiting and patient is tolerating diet. Patient is leaving AGAINST MEDICAL ADVICE. A copy of this dictation is being sent to Dr. Valenzuela. On exam vital signs are stable. Temp is 98.2F, pulse is 79, respirations are 18, blood pressure is 121/78, oxygen saturation is 98% on room air. Cardio S1, S2 are muffled. Respiratory system shows diminished breath sounds at the bases with no wheezing or rhonchi noted. Abdomen is soft and nontender. Nervous system shows no focal deficits. Please refer to medication reconciliation sheet for a list of medications. The impression and plan of care has been dictated by Meli Sj, Nurse Practitioner as directed. Dr. Lawrence MD I have performed a history and examination and MDM of this patient, discussed the same with the dictator, and agree with the dictator's assessment and plan as written ,documented as a scribe. Based on total visit time, I have performed more than 50% of the visit. Patient Condition at Discharge: Stable Plan - Discharge Summary Discharge Rx Participant: Yes New Discharge Prescriptions: No Action Insulin Detemir (Levemir) [Levemir] 25 unit SQ DAILY INSULIN ASPART (NovoLOG) [NovoLOG (formulary)] 10 unit SQ AC-TID Gabapentin 600 mg PO TID PRN PRN Reason: Pain Ibuprofen [Motrin] 800 mg PO QID PRN PRN Reason: Pain Discharge Medication List Insulin Detemir (Levemir) [Levemir] 25 unit SQ DAILY 08/27/20 [History] Gabapentin 600 mg PO TID PRN 06/29/21 [History] INSULIN ASPART (NovoLOG) [NovoLOG (formulary)] 10 unit SQ AC-TID 06/29/21 [History] Ibuprofen [Motrin] 800 mg PO QID PRN 06/29/21 [History] Follow up Appointment(s)/Referral(s): Brown Valenzuela MD [Primary Care Provider] - 1-2 days Discharge Disposition: Left Against Medical Advice
== END 2021-10-12 06:22 | disposition left against medical advice (07) | DRG 638 ==
LOC: EC 11:47 → 2SICU 13:33 → 5NMEDONC 10-10 16:06
PROVIDERS: ADMIT Family Medicine; ATTEND Family Medicine
DX: E10.10 Type 1 diabetes mellitus with ketoacidosis without coma (principal); N17.9 Acute kidney failure, unspecified; E10.42 Type 1 diabetes mellitus with diabetic polyneuropathy; F32.9 Major depressive disorder, single episode, unspecified; J45.20 Mild intermittent asthma, uncomplicated; E86.0 Dehydration; E87.5 Hyperkalemia; F41.1 Generalized anxiety disorder; F51.04 Psychophysiologic insomnia; D72.829 Elevated white blood cell count, unspecified; L30.9 Dermatitis, unspecified; T38.3X6A Underdosing of insulin and oral hypoglycemic [antidiabetic] drugs, initial encounter; Z28.310 Unvaccinated for COVID-19; Z79.4 Long term (current) use of insulin; Z79.899 Other long term (current) drug therapy; Z87.891 Personal history of nicotine dependence; Z91.128 Patient's intentional underdosing of medication regimen for other reason; Z91.14 Patient's other noncompliance with medication regimen; Z86.59 Personal history of other mental and behavioral disorders; Z91.51 Personal history of suicidal behavior; Z90.89 Acquired absence of other organs; Z83.42 Family history of familial hypercholesterolemia; Z82.3 Family history of stroke; Z82.49 Family history of ischemic heart disease and other diseases of the circulatory system
CPT/HCPCS: 36415; 71045; 80048; 80051; 80053; 81001; 82009; 82150; 82565; 82803; 82947; 83605; 83690; 83735; 84100; 84520; 85025; 87040; 96361; 96365; 96366; 96372; 99291

== ENCOUNTER 2021-10-27 09:22 | Observation (INO) | payer OTHER ==
[2021-10-27] MEDS ORDERED: ONDANSETRON 4 MG/2 ML VIAL IVP STA ×2 (09:27→11:02)
[2021-10-27] MEDS ORDERED: SODIUM CHLORIDE 0.9% 500 ML 500 ML IV ONE (09:28)
[2021-10-27] MEDS ORDERED: SODIUM CHLORIDE 0.9% 1,000 ML IV ONE (09:28)
--- NOTE | 2021-10-27 09:30 | ED ---
General Adult HPI - General Stated complaint: hyperglycemia Time Seen by Provider: 10/27/21 09:25 Source: patient, RN notes reviewed, old records reviewed - History of Present Illness Initial comments: This is a 26-year-old male who presents emergency Department stating that for a last hour he has been feeling sick he took his blood sugar was over 400. Patient states she's been nauseous and vomiting. Patient denies any fever chills or cough. Patient denies any chest pain difficulty breathing first breath per patient denies any abdominal pain but states he has abdominal cramping and is still nauseous. Patient denies any diarrhea. Patient states yesterday he felt fine. - Related Data Home Medications Medication Instructions Recorded Confirmed Insulin Detemir (Levemir) [Levemir] 25 unit SQ DAILY 08/27/20 10/09/21 Gabapentin 600 mg PO TID PRN 06/29/21 10/09/21 INSULIN ASPART (NovoLOG) [NovoLOG 10 unit SQ AC-TID 06/29/21 10/09/21 (formulary)] Ibuprofen [Motrin] 800 mg PO QID PRN 06/29/21 10/09/21 Allergies Allergy/AdvReac Type Severity Reaction Status Date / Time No Known Allergies Allergy Verified 09/26/21 17:14 Review of Systems ROS Statement: Those systems with pertinent positive or pertinent negative responses have been documented in the HPI. ROS Other: All systems not noted in ROS Statement are negative. Past Medical History Past Medical History: Asthma, Diabetes Mellitus, Skin Disorder Additional Past Medical History / Comment(s): IDDM type I, neuropathy bilateral feet, DKA, eczema. History of Any Multi-Drug Resistant Organisms: None Reported Past Surgical History: Adenoidectomy Additional Past Surgical History / Comment(s): 2002 Past Anesthesia/Blood Transfusion Reactions: No Reported Reaction Past Psychological History: Anxiety, Depression Additional Psychological History / Comment(s): Pt has had multiple psychiatric admissions for depression/suicide attempts. Pt states his depression is stable and has not had any thoughts/plans of suicide recently. Pt resides with a [facility] Smoking Status: Vaper Past Alcohol Use History: Occasional Additional Past Alcohol Use History / Comment(s): Pt states he started smoking as a teen and quit "a long time ago now". Pt started vaping off and on in 2009. Pt states he drinks alcohol occasionally. Past Drug Use History: Marijuana Additional Drug Use History / Comment(s): Occasional - Past Family History Mother Family Medical History: CVA/TIA Additional Family Medical History / Comment(s): TIA Father Family Medical History: Hyperlipidemia, Hypertension Additional Family Medical History / Comment(s): . General Exam - General Exam Comments Initial Comments: GENERAL: Patient is well-developed and well-nourished. Patient is nontoxic and well-hyd rated and is in mild distress. Patient is actively vomiting ENT: Neck is soft and supple. No significant lymphadenopathy is noted. Oropharynx is clear. Moist mucous membranes. Neck has full range of motion without eliciting any pain. EYES: The sclera were anicteric and conjunctiva were pink and moist. Extraocular movements were intact and pupils were equal round and reactive to light. E yelids were unremarkable. PULMONARY: Unlabored respirations. Good breath sounds bilaterally. No audible rales rhonchi or wheezing was noted. CARDIOVASCULAR: There is a regular rate and rhythm without any murmurs gallops or rubs. ABDOMEN: Soft and nontender with normal bowel sounds. SKIN: Skin is clear with no lesions or rashes and otherwise unremarkable. NEUROLOGIC: Patient is alert and oriented x3. Cranial nerves II through XII are grossly intact. Motor and sensory are also intact. Normal speech, volume and content. Symmetrical smile. MUSCULOSKELETAL: Normal extremities with adequate strength and full range of motion. LYMPHATICS: No significant lymphadenopathy is noted PSYCHIATRIC: Normal psychiatric evaluation. Course Vital Signs 10/27/21 09:22 Temperature 97.5 F L Pulse Rate 90 Respiratory 30 H Rate Blood Pressure 127/92 O2 Sat by Pulse 99 Oximetry Medical Decision Making - Medical Decision Making EKG shows sinus rhythm at 85 bpm UT interval 286 QRS is 101 QT interval 391 QTC is 434 per patient's EKG shows no ST segment elevation or depression. Patient's glucose was over 600/started the patient on an insulin drip after I gave the patient insulin bolus of regular insulin. Patient also was given IV fluids. I spoke with Dr. Schwartz and he agreed to admit the patient admitted the patient wrote admitting orders. - Lab Data Result diagrams: 10/27/21 09:42 10/27/21 09:42 Lab Results 10/27/21 10/27/21 10/27/21 Range/Units 09:33 09:42 09:42 WBC 7.8 (3.8-10.6) k/uL RBC 4.37 (4.30-5.90) m/uL Hgb 14.0 (13.0-17.5) gm/dL Hct 41.7 (39.0-53.0) % MCV 95.4 (80.0-100.0) fL MCH 31.9 (25.0-35.0) pg MCHC 33.5 (31.0-37.0) g/dL RDW 13.1 (11.5-15.5) % Plt Count 358 (150-450) k/uL MPV 7.0 Neutrophils % 68 % Lymphocytes % 23 % Monocytes % 4 % Eosinophils % 1 % Basophils % 1 % Neutrophils # 5.3 (1.3-7.7) k/uL Lymphocytes # 1.8 (1.0-4.8) k/uL Monocytes # 0.3 (0-1.0) k/uL Eosinophils # 0.1 (0-0.7) k/uL Basophils # 0.1 (0-0.2) k/uL Sodium 126 L (137-145) mmol/L Potassium 4.9 (3.5-5.1) mmol/L Chloride 91 L (98-107) mmol/L Carbon Dioxide 21 L (22-30) mmol/L Anion Gap 14 mmol/L BUN 19 (9-20) mg/dL Creatinine 0.76 (0.66-1.25) mg/dL Est GFR (CKD-EPI)AfAm >90 (>60 ml/min/1.73 sqM) Est GFR (CKD-EPI)NonAf >90 (>60 ml/min/1.73 sqM) Glucose 663 H* (74-99) mg/dL POC Glucose (mg/dL) >600 H (75-99) mg/dL POC Glu Quantitative Developer ID Art, [place] Plasma Lactic Acid Len (0.7-2.0) mmol/L Calcium 8.5 (8.4-10.2) mg/dL Magnesium 1.9 (1.6-2.3) mg/dL Total Bilirubin 0.7 (0.2-1.3) mg/dL AST 25 (17-59) U/L ALT 29 (4-49) U/L Alkaline Phosphatase 108 (38-126) U/L Total Protein 6.9 (6.3-8.2) g/dL Albumin 4.6 (3.5-5.0) g/dL Serum Alcohol mg/dL Acetone, Qual Positive (Negative) 10/27/21 10/27/21 Range/Units 09:42 09:42 WBC (3.8-10.6) k/uL RBC (4.30-5.90) m/uL Hgb (13.0-17.5) gm/dL Hct (39.0-53.0) % MCV (80.0-100.0) fL MCH (25.0-35.0) pg MCHC (31.0-37.0) g/dL RDW (11.5-15.5) % Plt Count (150-450) k/uL MPV Neutrophils % % Lymphocytes % % Monocytes % % Eosinophils % % Basophils % % Neutrophils # (1.3-7.7) k/uL Lymphocytes # (1.0-4.8) k/uL Monocytes # (0-1.0) k/uL Eosinophils # (0-0.7) k/uL Basophils # (0-0.2) k/uL Sodium (137-145) mmol/L Potassium (3.5-5.1) mmol/L Chloride (98-107) mmol/L Carbon Dioxide (22-30) mmol/L Anion Gap mmol/L BUN (9-20) mg/dL Creatinine (0.66-1.25) mg/dL Est GFR (CKD-EPI)AfAm (>60 ml/min/1.73 sqM) Est GFR (CKD-EPI)NonAf (>60 ml/min/1.73 sqM) Glucose (74-99) mg/dL POC Glucose (mg/dL) (75-99) mg/dL POC Glu Quantitative Developer ID Plasma Lactic Acid Len 1.4 (0.7-2.0) mmol/L Calcium (8.4-10.2) mg/dL Magnesium (1.6-2.3) mg/dL Total Bilirubin (0.2-1.3) mg/dL AST (17-59) U/L ALT (4-49) U/L Alkaline Phosphatase (38-126) U/L Total Protein (6.3-8.2) g/dL Albumin (3.5-5.0) g/dL Serum Alcohol <10 mg/dL Acetone, Qual (Negative) Critical Care Time Critical Care Time: Yes Total Critical Care Time: 35 Disposition Clinical Impression: DKA (diabetic ketoacidoses) Disposition: ADMITTED IP TO THIS HOSP Referrals: Brown Valenzuela MD [Primary Care Provider] - 1-2 days Time of Disposition: 10:50
[2021-10-27 09:38] LABS: Glucose,Whole Blood >600 mg/dL (75-99)
[2021-10-27 09:48] LABS: Basophils # (A) 0.1 k/uL (0-0.2); Basophils % (A) 1 %; Eosinophils # (A) 0.1 k/uL (0-0.7); Eosinophils % (A) 1 %; HCT 41.7 % (39.0-53.0); Lymphocytes # (A) 1.8 k/uL (1.0-4.8); Lymphocytes % (A) 23 %; MCH 31.9 pg (25.0-35.0); MCHC 33.5 g/dL (31.0-37.0); MCV 95.4 fL (80.0-100.0); Monocytes # (A) 0.3 k/uL (0-1.0); Monocytes % (A) 4 %; Neutrophils # (A) 5.3 k/uL (1.3-7.7); Neutrophils % (A) 68 %; Platelet Count 358 k/uL (150-450); RBC 4.37 m/uL (4.30-5.90); RDW 13.1 % (11.5-15.5); WBC 7.8 k/uL (3.8-10.6)
[2021-10-27 10:00] LABS: ALT 29 U/L (4-49); AST 25 U/L (17-59); African American GFR (CKD) >90 (>60 ml/min/1.73 sqM); Albumin 4.6 g/dL (3.5-5.0); Alkaline Phosphatase 108 U/L (38-126); Anion Gap 14 mmol/L; Blood Urea Nitrogen 19 mg/dL (9-20); Calcium 8.5 mg/dL (8.4-10.2); Carbon Dioxide 21 mmol/L (22-30); Chloride 91 mmol/L (98-107); Magnesium 1.9 mg/dL (1.6-2.3); Non-African American GFR(CKD) >90 (>60 ml/min/1.73 sqM); Potassium 4.9 mmol/L (3.5-5.1); Sodium 126 mmol/L (137-145); Total Bilirubin 0.7 mg/dL (0.2-1.3); Total Protein 6.9 g/dL (6.3-8.2)
[2021-10-27 10:08] LABS: Glucose 663 mg/dL (74-99)
[2021-10-27] MEDS ORDERED: INSULIN REGULAR 100 UNIT/ML VIAL (IV) IV ONE (10:20)
--- NOTE | 2021-10-27 10:36 | XR ---
EXAMINATION TYPE: XR chest 2V DATE OF EXAM: 10/27/2021 10:30 AM COMPARISON: Multiple radiographs, with the most recent on 10/09/2021. TECHNIQUE: XR chest 2V Frontal and lateral views of the chest. CLINICAL INDICATION:Male, 26 years old with history of Difficulty breathing ; FINDINGS: Lungs/Pleura: There is no evidence of pleural effusion, focal consolidation, or pneumothorax. Pulmonary vascularity: Unremarkable. Heart/mediastinum: Cardiomediastinal silhouette is unremarkable. Musculoskeletal: No acute osseous pathology. IMPRESSION: No acute cardiopulmonary disease/process.
[2021-10-27 10:42] LABS: Appearance,Urine Clear (Clear); Bilirubin,Urine Negative (Negative); Blood,Urine Negative (Negative); Color,Urine Colorless; Glucose,Urine (UA) 4+ (Negative); Leukocyte Esterase,Urine Negative (Negative); Nitrite,Urine Negative (Negative); Protein,Urine Negative (Negative); Specific Gravity,Urine 1.027 (1.001-1.035); Urobilinogen,Urine <2.0 mg/dL (<2.0)
[2021-10-27 10:53] LABS: Amphetamine Screen,Urine Not Detected (NotDetected); Barbiturate Screen,Urine Not Detected (NotDetected); Benzodiazepines Screen,Urine Not Detected (NotDetected); Cocaine Screen,Urine Not Detected (NotDetected); Methadone Screen, Urine Not Detected (NotDetected); Opiate Screen,Urine Not Detected (NotDetected); Oxycodone Screen, Urine Not Detected (NotDetected); Phencyclidine Screen,Urine Not Detected (NotDetected); Tricyclic Antidepressant,Urine Not Detected (NotDetected); Urn Cannabinoid Scrn Detected (NotDetected)
[2021-10-27] MEDS ORDERED: INSULIN REGULAR BOLUS (FROM DRIP BAG) IV PRN (10:58)
[2021-10-27 11:02] LABS: Ketones,Urine 2+ (Negative)
[2021-10-27] MEDS: SODIUM CHLORIDE 0.9% 1,000 ML IV SCH ×3 (11:15→23:03)
[2021-10-27 11:16] LABS: Glucose,Whole Blood 439 mg/dL (75-99)
[2021-10-27] MEDS: INSULIN REGULAR 100 UNIT in SODIUM CHLORIDE 0.9% 100 ML IV SCH (11:16)
[2021-10-27] MEDS ORDERED: METOCLOPRAMIDE 5 MG/ML 2 ML VIAL IVP STA (11:40)
[2021-10-27] MEDS ORDERED: GABAPENTIN 300 MG CAP PO PRN (12:33)
[2021-10-27 13:07] LABS: Glucose,Whole Blood 224 mg/dL (75-99)
[2021-10-27 14:08] LABS: Glucose,Whole Blood 151 mg/dL (75-99)
[2021-10-27 15:09] LABS: Glucose,Whole Blood 150 mg/dL (75-99)
[2021-10-27 15:12] LABS: African American GFR (CKD) >90 (>60 ml/min/1.73 sqM); Anion Gap 10 mmol/L; Blood Urea Nitrogen 16 mg/dL (9-20); Carbon Dioxide 28 mmol/L (22-30); Chloride 99 mmol/L (98-107); Glucose 127 mg/dL (74-99); Non-African American GFR(CKD) >90 (>60 ml/min/1.73 sqM); Phosphorus 2.4 mg/dL (2.5-4.5); Potassium 3.9 mmol/L (3.5-5.1); Sodium 137 mmol/L (137-145)
--- NOTE | 2021-10-27 15:15 | HP ---
HISTORY AND PHYSICAL DATE OF SERVICE: 10/27/2021 CHIEF COMPLAINT: DKA. HISTORY OF PRESENT ILLNESS: This is another admission for this gentleman who has been coming in every week or two with DKA. He does not take his insulin and winds up in the hospital every time. He also abuses alcohol. REVIEW OF SYSTEMS: He is somewhat lethargic and nauseated, but other than that he has no other complaints. Past medical history, family history, and personal and social histories are all otherwise unchanged. PHYSICAL EXAMINATION: Blood pressure is 111/64 with a pulse of 96, respirations of 36, and he is afebrile. In general he appeared to be slender and dehydrated. He was slightly lethargic. Head, ears, eyes, nose, mouth and throat were normal. Chest was clear. Cardiac exam was normal except for tachycardia. The abdomen was soft and nontender. Extremities were normal. Neurologically he was intact. He is admitted to the hospital with diagnoses: 1. Diabetic ketoacidosis. 2. Dehydration. 3. Noncompliant insulin patient. 4. Peripheral neuropathy. 5. Depression. PLAN: 1. Bedrest. 2. IV fluids. 3. DKA protocol. 4. Adjust insulin to bring his diabetes back under control. MMODL / IJN: [id number] /
[2021-10-27 16:11] LABS: Glucose,Whole Blood 70 mg/dL (75-99)
[2021-10-27 16:37] LABS: Glucose,Whole Blood 76 mg/dL (75-99)
[2021-10-27 17:11] LABS: Glucose,Whole Blood 138 mg/dL (75-99)
[2021-10-27 18:14] LABS: Glucose,Whole Blood 189 mg/dL (75-99)
[2021-10-27 19:03] LABS: Glucose,Whole Blood 217 mg/dL (75-99)
[2021-10-27 20:05] LABS: Glucose,Whole Blood 203 mg/dL (75-99)
[2021-10-27] MEDS ORDERED: INSULIN DETEMIR (LEVEMIR) 100 UNIT/ML SYR SQ SCH (21:00)
[2021-10-27] MEDS: INSULIN ASPART (NovoLOG) 100 UNIT/ML VIAL SQ SCH (22:59)
[2021-10-27] MEDS: D5-0.45% NACL WITH KCL 20MEQ/L 1,000 ML IV SCH (23:02)
[2021-10-28 00:45] LABS: African American GFR (CKD) >90 (>60 ml/min/1.73 sqM); Anion Gap 5 mmol/L; Blood Urea Nitrogen 14 mg/dL (9-20); Carbon Dioxide 30 mmol/L (22-30); Chloride 101 mmol/L (98-107); Glucose 122 mg/dL (74-99); Non-African American GFR(CKD) >90 (>60 ml/min/1.73 sqM); Potassium 4.1 mmol/L (3.5-5.1); Sodium 136 mmol/L (137-145)
[2021-10-28] MEDS: INSULIN REGULAR 100 UNIT in SODIUM CHLORIDE 0.9% 100 ML IV SCH (01:32)
[2021-10-28 02:16] LABS: Glucose,Whole Blood 134 mg/dL (75-99)
[2021-10-28 04:38] LABS: Glucose,Whole Blood 46 mg/dL (75-99)
[2021-10-28 04:59] LABS: Glucose,Whole Blood 74 mg/dL (75-99)
[2021-10-28] MEDS ORDERED: INSULIN ASPART (NovoLOG) 100 UNIT/ML VIAL SQ SCH (07:30)
[2021-10-28] MEDS: INSULIN ASPART (NovoLOG) 100 UNIT/ML VIAL SQ SCH (09:44)
[2021-10-28] MEDS: D5-0.45% NACL WITH KCL 20MEQ/L 1,000 ML IV SCH (09:45)
[2021-10-28 11:26] VITALS: BP 134/91; PULSE 81; RESP 17; TEMP 98.2
[2021-10-28 11:42] LABS: Glucose,Whole Blood 116 mg/dL (75-99)
--- NOTE | 2021-10-28 16:06 | DS ---
DISCHARGE SUMMARY CHIEF COMPLAINT: DKA with nausea and vomiting. HISTORY OF PRESENT ILLNESS AND PHYSICAL EXAMINATION: Details of this man's history and physical can be found in the initial workup. LABORATORY STUDIES: While he was in the hospital, he had laboratory studies, details of which can be found in the laboratory section of his chart. COURSE IN THE HOSPITAL: After admission, he was placed on bedrest, started on intravenous fluids and DKA protocol. Blood sugars came down and he had no further trouble with nausea and vomiting and was anxious to be discharged. He will go home on his usual activity, diet, medication and be seen in the office in a few days. FINAL DIAGNOSES: 1. Uncontrolled type 1 insulin-dependent diabetes mellitus. 2. DKA. 3. Probable gastric paresis. 4. Dehydration. 5. Depression. 6. Peripheral neuropathy. OPERATIONS: None. CONSULTATION: None. He is improved. GRACE / ALDEN: [id number] /
== END 2021-10-28 13:00 | disposition home or self-care (01) ==
LOC: EC 09:22 → 3SCARD 10:51 → INTOOBSV 10:51 → 3SCARD 11:18 → UNDODISIN 10-28 13:00
PROVIDERS: ADMIT Family Medicine; ATTEND Family Medicine
DX: E10.10 Type 1 diabetes mellitus with ketoacidosis without coma (principal); J45.909 Unspecified asthma, uncomplicated; F41.9 Anxiety disorder, unspecified; F32.A Depression, unspecified; L30.9 Dermatitis, unspecified; E10.40 Type 1 diabetes mellitus with diabetic neuropathy, unspecified; G62.9 Polyneuropathy, unspecified; E86.0 Dehydration; R00.0 Tachycardia, unspecified; Z91.14 Patient's other noncompliance with medication regimen; Z79.899 Other long term (current) drug therapy; Z79.4 Long term (current) use of insulin; Z91.51 Personal history of suicidal behavior; Z87.891 Personal history of nicotine dependence; Z82.3 Family history of stroke; Z82.49 Family history of ischemic heart disease and other diseases of the circulatory system
CPT/HCPCS: 96376; 96361; 96374; 96375; 99285; 36415; 93005; 80051 ×2; 80053; 82565 ×2; 82009; 83605; 83735; 84100 ×2; 82947 ×2; 84520 ×2; 85025; 81003; 80306; 71046; G0378 ×2; G0480; J2765; J2405; 80320; 96365

== ENCOUNTER 2021-11-12 19:04 | Observation (INO) | payer OTHER ==
[2021-11-12] MEDS ORDERED: SODIUM CHLORIDE 0.9% 1,000 ML IV STA (19:11)
--- NOTE | 2021-11-12 19:21 | ED ---
General Adult HPI - General Chief complaint: Recheck/Abnormal Lab/Rx Stated complaint: Hyperglycemia Time Seen by Provider: 11/12/21 19:15 Source: patient, EMS, RN notes reviewed, old records reviewed Mode of arrival: EMS Limitations: no limitations - History of Present Illness Initial comments: 26-year-old male patient presents to the emergency room with complaints of nausea and vomiting that started about an hour ago. EMS brought him in to the ER and gave him Zofran 4 mg and found he had a blood glucose level of 527. He denies any fevers. No recent sick contacts. Patient denies any alcohol or drug use today. States he has been taking his insulin as prescribed. -: hour(s) (1) Location: abdomen Associated Symptoms: nausea/vomiting Treatments Prior to Arrival: none - Related Data Home Medications Medication Instructions Recorded Confirmed Insulin Detemir (Levemir) [Levemir] 25 unit SQ DAILY 08/27/20 11/12/21 INSULIN ASPART (NovoLOG) [NovoLOG 10 unit SQ AC-TID 06/29/21 11/12/21 (formulary)] Ibuprofen [Motrin] 800 mg PO QID PRN 06/29/21 11/12/21 Gabapentin [Neurontin] 600 mg PO TID 11/12/21 11/12/21 Sertraline [Zoloft] 50 mg PO DAILY 11/12/21 11/12/21 Allergies Allergy/AdvReac Type Severity Reaction Status Date / Time No Known Allergies Allergy Verified 11/12/21 19:16 Review of Systems ROS Statement: Those systems with pertinent positive or pertinent negative responses have been documented in the HPI. ROS Other: All systems not noted in ROS Statement are negative. Past Medical History Past Medical History: Asthma, Diabetes Mellitus, Neurologic Disorder, Skin Disorder Additional Past Medical History / Comment(s): IDDM type I, neuropathy bilateral feet, DKA, eczema. History of Any Multi-Drug Resistant Organisms: None Reported Past Surgical History: Adenoidectomy Additional Past Surgical History / Comment(s): 2002 Past Anesthesia/Blood Transfusion Reactions: No Reported Reaction Past Psychological History: Anxiety, Depression Smoking Status: Vaper Past Alcohol Use History: Occasional Past Drug Use History: Marijuana - Past Family History Mother Family Medical History: CVA/TIA Additional Family Medical History / Comment(s): TIA Father Family Medical History: Hyperlipidemia, Hypertension Additional Family Medical History / Comment(s): . General Exam Limitations: no limitations General appearance: alert, in no apparent distress Head exam: Present: atraumatic, normocephalic Eye exam: Present: normal appearance. Absent: scleral icterus, conjunctival injection, periorbital swelling ENT exam: Present: normal exam Neck exam: Present: full ROM. Absent: tenderness, meningismus Respiratory exam: Present: normal lung sounds bilaterally. Absent: respiratory distress, accessory muscle use Cardiovascular Exam: Present: regular rate, normal rhythm GI/Abdominal exam: Present: soft, tenderness (diffuse). Absent: rigid Extremities exam: Present: normal capillary refill. Absent: pedal edema Back exam: Present: normal inspection, full ROM. Absent: tenderness, CVA tenderness (R), CVA tenderness (L), rash noted Neurological exam: Present: alert Psychiatric exam: Present: normal affect, normal mood Skin exam: Present: warm, dry, normal color. Absent: cyanosis, diaphoretic, petechiae, pallor Course Vital Signs 11/12/21 11/12/21 19:13 21:41 Temperature 97.8 F Pulse Rate 65 90 Respiratory 20 18 Rate Blood Pressure 147/93 124/85 O2 Sat by Pulse 100 99 Oximetry Medical Decision Making - Medical Decision Making 26-year-old male patient presents with 1 hour of persistent nausea and vomiting. He denies alcohol or drug use today states he is taking his insulin as prescri bed. Blood glucose level 616. Anion gap of 7. Negative acetone. No evidence of leukocytosis. BUN and creatinine are within normal limits. Potassium is 4.9 and sodium 131. Patient was given a liter fluid and started 130 mL saline an hour. He was also given 5 units of regular insulin IV. Vital signs are stable. He will be placed in observation. Case was discussed with Dr. Valenzuela who state s patient has been hospitalized multiple times for DKA. His last hospitalization was October 28 of this month. Case discussed with Dr Romero. - Lab Data Result diagrams: 11/12/21 19:24 11/12/21 19:24 Lab Results 11/12/21 11/12/21 11/12/21 Range/Units 19:24 19:24 20:40 WBC 6.4 (3.8-10.6) k/uL RBC 4.02 L (4.30-5.90) m/uL Hgb 13.1 (13.0-17.5) gm/dL Hct 39.1 (39.0-53.0) % MCV 97.2 (80.0-100.0) fL MCH 32.6 (25.0-35.0) pg MCHC 33.5 (31.0-37.0) g/dL RDW 13.4 (11.5-15.5) % Plt Count 391 (150-450) k/uL MPV 7.1 Neutrophils % 64 % Lymphocytes % 26 % Monocytes % 6 % Eosinophils % 2 % Basophils % 1 % Neutrophils # 4.1 (1.3-7.7) k/uL Lymphocytes # 1.7 (1.0-4.8) k/uL Monocytes # 0.4 (0-1.0) k/uL Eosinophils # 0.1 (0-0.7) k/uL Basophils # 0.0 (0-0.2) k/uL Sodium 131 L (137-145) mmol/L Potassium 4.9 (3.5-5.1) mmol/L Chloride 96 L (98-107) mmol/L Carbon Dioxide 28 (22-30) mmol/L Anion Gap 7 mmol/L BUN 17 (9-20) mg/dL Creatinine 0.73 (0.66-1.25) mg/dL Est GFR (CKD-EPI)AfAm >90 (>60 ml/min/1.73 sqM) Est GFR (CKD-EPI)NonAf >90 (>60 ml/min/1.73 sqM) Glucose 616 H* (74-99) mg/dL POC Glucose (mg/dL) 485 H (70-110) mg/dL POC Glu Quick Print Operator ID Stephanie Cordova Calcium 8.4 (8.4-10.2) mg/dL Total Bilirubin 0.4 (0.2-1.3) mg/dL AST 78 H (17-59) U/L ALT 53 H (4-49) U/L Alkaline Phosphatase 76 (38-126) U/L Total Protein 6.2 L (6.3-8.2) g/dL Albumin 4.0 (3.5-5.0) g/dL Amylase 79 (30-110) U/L Lipase 329 H (23-300) U/L Acetone, Qual Negative (Negative) 11/12/21 Range/Units 21:39 WBC (3.8-10.6) k/uL RBC (4.30-5.90) m/uL Hgb (13.0-17.5) gm/dL Hct (39.0-53.0) % MCV (80.0-100.0) fL MCH (25.0-35.0) pg MCHC (31.0-37.0) g/dL RDW (11.5-15.5) % Plt Count (150-450) k/uL MPV Neutrophils % % Lymphocytes % % Monocytes % % Eosinophils % % Basophils % % Neutrophils # (1.3-7.7) k/uL Lymphocytes # (1.0-4.8) k/uL Monocytes # (0-1.0) k/uL Eosinophils # (0-0.7) k/uL Basophils # (0-0.2) k/uL Sodium (137-145) mmol/L Potassium (3.5-5.1) mmol/L Chloride (98-107) mmol/L Carbon Dioxide (22-30) mmol/L Anion Gap mmol/L BUN (9-20) mg/dL Creatinine (0.66-1.25) mg/dL Est GFR (CKD-EPI)AfAm (>60 ml/min/1.73 sqM) Est GFR (CKD-EPI)NonAf (>60 ml/min/1.73 sqM) Glucose (74-99) mg/dL POC Glucose (mg/dL) 355 H (70-110) mg/dL POC Glu Quick Print Operator ID Stephanie Cordova Calcium (8.4-10.2) mg/dL Total Bilirubin (0.2-1.3) mg/dL AST (17-59) U/L ALT (4-49) U/L Alkaline Phosphatase (38-126) U/L Total Protein (6.3-8.2) g/dL Albumin (3.5-5.0) g/dL Amylase (30-110) U/L Lipase (23-300) U/L Acetone, Qual (Negative) Disposition Clinical Impression: Hyperglycemia, Nausea & vomiting Disposition: ADMITTED IP TO THIS HOSP Referrals: Brown Valenzuela MD [Primary Care Provider] - 1-2 days Decision Date: 11/12/21 Decision Time: 20:38
[2021-11-12 19:39] LABS: Basophils % (A) 1 %; Eosinophils # (A) 0.1 k/uL (0-0.7); Eosinophils % (A) 2 %; HCT 39.1 % (39.0-53.0); HGB 13.1 gm/dL (13.0-17.5); Lymphocytes # (A) 1.7 k/uL (1.0-4.8); Lymphocytes % (A) 26 %; MCH 32.6 pg (25.0-35.0); MCHC 33.5 g/dL (31.0-37.0); MCV 97.2 fL (80.0-100.0); Mean Platelet Volume 7.1; Monocytes # (A) 0.4 k/uL (0-1.0); Monocytes % (A) 6 %; Neutrophils # (A) 4.1 k/uL (1.3-7.7); Neutrophils % (A) 64 %; Platelet Count 391 k/uL (150-450); RBC 4.02 m/uL (4.30-5.90); RDW 13.4 % (11.5-15.5); WBC 6.4 k/uL (3.8-10.6)
[2021-11-12 19:50] LABS: ALT 53 U/L (4-49); African American GFR (CKD) >90 (>60 ml/min/1.73 sqM); Amylase 79 U/L (30-110); Anion Gap 7 mmol/L; Blood Urea Nitrogen 17 mg/dL (9-20); Calcium 8.4 mg/dL (8.4-10.2); Carbon Dioxide 28 mmol/L (22-30); Chloride 96 mmol/L (98-107); Lipase 329 U/L (23-300); Non-African American GFR(CKD) >90 (>60 ml/min/1.73 sqM); Sodium 131 mmol/L (137-145); Total Bilirubin 0.4 mg/dL (0.2-1.3); Total Protein 6.2 g/dL (6.3-8.2)
[2021-11-12 19:56] LABS: AST 78 U/L (17-59); Alkaline Phosphatase 76 U/L (38-126); Glucose 616 mg/dL (74-99); Potassium 4.9 mmol/L (3.5-5.1)
[2021-11-12] MEDS ORDERED: INSULIN REGULAR 100 UNIT/ML VIAL (IV) IV ONE (20:11)
[2021-11-12 20:43] LABS: Glucose,Whole Blood 485 mg/dL (70-110)
[2021-11-12] MEDS ORDERED: ACETAMINOPHEN TAB 325 MG TAB PO PRN (20:59)
[2021-11-12] MEDS ORDERED: NALOXONE 0.4 MG/ML 1 ML VIAL IV PRN (20:59)
[2021-11-12] MEDS: SODIUM CHLORIDE 0.9% 1,000 ML IV SCH (21:35)
[2021-11-12] MEDS: PANTOPRAZOLE 40 MG/10 ML VIAL IV SCH (21:35)
[2021-11-12 21:42] LABS: Glucose,Whole Blood 355 mg/dL (70-110)
[2021-11-12 22:24] LABS: Appearance,Urine Clear (Clear); Bilirubin,Urine Negative (Negative); Blood,Urine Negative (Negative); Color,Urine Colorless; Glucose,Urine (UA) 4+ (Negative); Ketones,Urine Negative (Negative); Leukocyte Esterase,Urine Negative (Negative); Nitrite,Urine Negative (Negative); Protein,Urine Negative (Negative); Specific Gravity,Urine 1.028 (1.001-1.035); Urobilinogen,Urine <2.0 mg/dL (<2.0)
[2021-11-12] MEDS: ONDANSETRON 4 MG/2 ML VIAL IVP PRN (22:39)
[2021-11-12 22:43] LABS: Glucose,Whole Blood 319 mg/dL (70-110)
[2021-11-12 23:06] LABS: Glucose,Whole Blood 322 mg/dL (70-110)
[2021-11-12] MEDS: GABAPENTIN 300 MG CAP PO SCH (23:06)
[2021-11-13] MEDS: SODIUM CHLORIDE 0.9% 1,000 ML IV SCH ×3 (04:26→21:14)
[2021-11-13 07:08] LABS: Glucose,Whole Blood 306 mg/dL (70-110)
[2021-11-13] MEDS: INSULIN ASPART (NovoLOG) 100 UNIT/ML VIAL SQ SCH ×3 (08:00→17:49)
[2021-11-13] MEDS: PANTOPRAZOLE 40 MG/10 ML VIAL IV SCH (08:01)
[2021-11-13] MEDS: GABAPENTIN 300 MG CAP PO SCH ×4 (08:01→21:15)
[2021-11-13] MEDS: ONDANSETRON 4 MG/2 ML VIAL IVP PRN (08:04)
[2021-11-13] MEDS: INSULIN DETEMIR (LEVEMIR) 100 UNIT/ML SYR SQ SCH (10:00)
[2021-11-13] MEDS: SERTRALINE 50 MG TAB PO SCH (10:00)
[2021-11-13 11:40] VITALS: BMI 18.7
[2021-11-13 12:05] LABS: Glucose,Whole Blood 173 mg/dL (70-110)
[2021-11-13 17:41] LABS: Glucose,Whole Blood 82 mg/dL (70-110)
--- NOTE | 2021-11-13 19:29 | HP ---
HISTORY AND PHYSICAL CHIEF COMPLAINT: Uncontrolled diabetes, DKA and depression. HISTORY OF PRESENT ILLNESS: This is another of many admissions for this 26-year-old white male type 1 diabetic with depression and noncompliance. He is in and out of the hospital almost every week. He was in [facility] last week for the same thing and dialysis social worker deemed that he was depressed enough that he should undergo inpatient treatment, and this was arranged. I am not sure what facility he went to, but he apparently has gotten back out and presented to the emergency room here once again with a blood sugar of 600. He states that he is taking his insulin, but this is not true. When he is in the hospital he is under good control; otherwise he is somewhat of a recluse and does not take his insulin. REVIEW OF SYSTEMS: He denies any headaches, chest pain, fever, chills, abdominal pain, etc. Past medical history, family history, and personal and social histories are all otherwise unchanged from his last admission and discharge. PHYSICAL EXAMINATION: Blood pressure is 122/75 with a pulse of 108 and respirations of 45. In general he appeared to be slender and in no acute distress. Skin color is normal. Skin is warm and dry. Lymph nodes are not enlarged. Head, ears, eyes, nose, mouth and throat were normal except for his mucous membranes, which were under-hydrated. Neck is supple. Chest is clear. Cardiac exam is normal sinus rhythm. The abdomen is soft and nontender. Extremities are normal. Neurologically he is intact. He is admitted to the hospital with diagnoses: 1. Uncontrolled insulin-dependent diabetes mellitus. 2. Major depression. PLAN: 1. Bedrest. 2. Control blood sugars. 3. Psychiatric consult. MMODL / IJN: [id number] /
--- NOTE | 2021-11-13 19:38 | PN ---
PROGRESS NOTE CHIEF COMPLAINT: 1. Uncontrolled diabetes. 2. Depression. HISTORY OF PRESENT ILLNESS: This patient remains quite lethargic. He has had no other activities, including seizures. PHYSICAL EXAMINATION: His chest is clear. Cardiac exam is normal. The abdomen is flat and soft. IMPRESSION: 1. Uncontrolled diabetes. 2. Major depression. PLAN: 1. Continue efforts to control his blood sugars. 2. Psych consult. MMODL / IJN: [id number] /
[2021-11-13 20:21] LABS: Glucose,Whole Blood 146 mg/dL (70-110)
[2021-11-14] MEDS: SODIUM CHLORIDE 0.9% 1,000 ML IV SCH ×3 (03:05→19:03)
[2021-11-14 06:50] LABS: Glucose,Whole Blood 160 mg/dL (70-110)
[2021-11-14 07:20] VITALS: RESP 16
[2021-11-14] MEDS: INSULIN DETEMIR (LEVEMIR) 100 UNIT/ML SYR SQ SCH (08:23)
[2021-11-14] MEDS: INSULIN ASPART (NovoLOG) 100 UNIT/ML VIAL SQ SCH ×4 (08:23→18:11)
[2021-11-14] MEDS: GABAPENTIN 300 MG CAP PO SCH ×2 (08:23→16:25)
[2021-11-14] MEDS: SERTRALINE 50 MG TAB PO SCH (08:24)
[2021-11-14] MEDS: PANTOPRAZOLE 40 MG/10 ML VIAL IV SCH (08:24)
[2021-11-14 11:31] LABS: Glucose,Whole Blood 146 mg/dL (70-110)
[2021-11-14 14:09] VITALS: BP 113/67; PULSE 62; TEMP 98
--- NOTE | 2021-11-14 15:04 | P.CN ---
Psychiatric Consult - . Consult date: 11/14/21 Consult:: IDENTIFYING DATA AND REASON FOR CONSULT: The patient is a 26-year-old single male admitted to medicine service for management of hyperglycemia. His primary care provider submitted a psychiatric consult for evaluation of d epression. PERTINENT PSYCHIATRIC HISTORY: I reviewed the medical record and interviewed the patient. He is well known to these inpatient psychiatric unit from prior psychiatric hospitalizations. He was last discharged from our unit in June of this year with the diagnoses of major depressive disorder, borderline personality disorder and cannabis use disorder. He was surprised by this consult and alleged that no one had told him that psychiatry was consulted. He denied that he was feeling depressed. He stated that he was discharged from [facility] last week where he is spent 3 days for treatment of depression. He denied that he is experiencing suicidal ideation or wishes. He has not followed through with aftercare recommended by the psychiatric unit at [facility]. We talked about mental health services and he was unwilling to agree to a referral to community mental health. PAST PSYCHIATRIC AND/OR SUBSTANCE USE HISTORY: He has had multiple psychiatric hospitalizations. He usually does not follow through with aftercare, does not take prescribed psychotropic medications and does not keep scheduled appointments with mental health providers. He has a history of cannabis use and he smokes cannabis on a daily basis. He denied use of other drugs. He denied specific that he has been using Xanax or other benzodiazepines. SOCIAL HISTORY: He is unemployed and has no stable housing. He talked about living between his mother's home and a friend. He was somewhat evasive about his social circumstances. MENTAL STATUS EXAM: He presented as a thin casually groomed 26-year-old male who was pleasant on approach. He made eye contact and attended to the interview. He had no distinguishing features or prominent physical abnormalities. He had a bright facial expression. He was alert and oriented to person, place and time. He showed no abnormality of psychomotor activity. His speech was spontaneous with normal rate, rhythm and volume. His affect was stable and appropriate. He denied suicidal ideation and wishes. He denied homicidal ideation. He denied feeling hopeless, helpless or worthless. He did not express ruminations, ideas reference, paranoid ideation or delusions. His thinking was concrete but his associations were coherent, logical and goal directed. He denied hallucinations and did not appear to responding to internal stimuli. IMPRESSIONS: He is a young man who has a brittle diabetes and recurrent depressive episodes. He is had multiple psychiatric hospitalizations and medical hospitalization as a result of poor compliance with treatment. He seldom follows up with mental health or psychiatric outpatient treatment. The attending consulted psychiatry regarding treatment of depression. The patient denied feeling depressed or having thoughts of or suicide. There is no indication for inpatient psychiatric treatment at this time. He should be referred for outpatient mental health services. DIAGNOSIS: Major depressive disorder recurrent in full remission RECOMMENDATION: Refer to [facility] for outpatient mental health services. Continue sertraline 50 mg daily. Psychiatry will sign off on the case. Thank you for the consult.
--- NOTE | 2021-11-14 16:24 | PN ---
PROGRESS NOTE CHIEF COMPLAINT: Uncontrolled diabetes and depression. HISTORY OF PRESENT ILLNESS: This gentleman's blood sugars are coming down. We are waiting for his psychiatric evaluation. PHYSICAL EXAMINATION: Vital signs are normal. Chest is clear. Cardiac exam is normal. Abdomen is soft, nontender. IMPRESSION: 1. Uncontrolled diabetes. 2. Major depression. PLAN: Continue with current program and await the psychiatric consultation. MMODL / IJN: [id number] /
[2021-11-14 16:52] LABS: Glucose,Whole Blood 129 mg/dL (70-110)
[2021-11-15] MEDS ORDERED: PANTOPRAZOLE 40 MG TABLET PO SCH (07:30)
--- NOTE | 2021-11-15 23:11 | DS ---
DISCHARGE SUMMARY DATE OF DISCHARGE: 11/14/2021 CHIEF COMPLAINT: Uncontrolled diabetes. HISTORY OF PRESENT ILLNESS AND PHYSICAL EXAMINATION: Details of this man's history and physical can be found in the initial workup. LABORATORY STUDIES: While he is the hospital, he had laboratory studies, details of which can be found in the laboratory section of his chart. COURSE IN THE HOSPITAL: After admission, he was placed on bedrest, started on intravenous fluids and insulin management of his diabetes. Blood sugars are coming down nicely and he was doing well, then he signed himself out against medical advice on November 14, which is his usual pattern. We will contact him for followup in the office, which he occasionally follows through with. FINAL DIAGNOSES: 1. Uncontrolled insulin-dependent type 1 diabetes mellitus. 2. Depression. 3. Personality disorder. 4. Peripheral neuropathy. OPERATIONS: None. CONSULTATIONS: None. He is improved. MMODL / TRAMN: [id number] /
== END 2021-11-14 19:30 | disposition left against medical advice (07) ==
LOC: EC 19:04 → 6NMEDSUR 22:02
PROVIDERS: ADMIT Family Medicine; ATTEND Family Medicine
DX: E10.65 Type 1 diabetes mellitus with hyperglycemia (principal); F33.42 Major depressive disorder, recurrent, in full remission; T43.96XA Underdosing of unspecified psychotropic drug, initial encounter; Z91.19 Patient's noncompliance with other medical treatment and regimen; Z91.128 Patient's intentional underdosing of medication regimen for other reason; Z53.29 Procedure and treatment not carried out because of patient's decision for other reasons; F60.9 Personality disorder, unspecified; E10.42 Type 1 diabetes mellitus with diabetic polyneuropathy; G62.9 Polyneuropathy, unspecified; J45.909 Unspecified asthma, uncomplicated; L30.9 Dermatitis, unspecified; F41.9 Anxiety disorder, unspecified; Z56.0 Unemployment, unspecified; Z79.4 Long term (current) use of insulin; Z79.899 Other long term (current) drug therapy; Z82.49 Family history of ischemic heart disease and other diseases of the circulatory system; Z82.3 Family history of stroke
CPT/HCPCS: 96376; 96361 ×3; 96374; 96375; 99285; 36415; 80053; 82150; 82009; 83690; 85025; 81003; 83036; G0378 ×3; J2405 ×2; C9113 ×2; J1790

== ENCOUNTER 2021-11-25 00:43 | Emergency (ER) | payer OTHER ==
[2021-11-25 01:24] VITALS: TEMP 98.4
--- NOTE | 2021-11-25 04:58 | ED ---
Chest Pain HPI - General Chief Complaint: Chest Pain Stated Complaint: Chest Pain Time Seen by Provider: 11/25/21 03:11 Source: patient Mode of arrival: ambulatory Limitations: no limitations - History of Present Illness MD Complaint: chest pain -: hour(s) Onset: during rest Pain Location: left chest, right chest Pain Radiation: none Severity: moderate Quality: aching Consistency: now resolved Improves With: nothing Worsens With: nothing Treatments Prior to Arrival: none - Related Data Home Medications Medication Instructions Recorded Confirmed Insulin Detemir (Levemir) [Levemir] 25 unit SQ DAILY 08/27/20 11/12/21 INSULIN ASPART (NovoLOG) [NovoLOG 10 unit SQ AC-TID 06/29/21 11/12/21 (formulary)] Ibuprofen [Motrin] 800 mg PO QID PRN 06/29/21 11/12/21 Gabapentin [Neurontin] 600 mg PO TID 11/12/21 11/12/21 Sertraline [Zoloft] 50 mg PO DAILY 11/12/21 11/12/21 Allergies Allergy/AdvReac Type Severity Reaction Status Date / Time No Known Allergies Allergy Verified 11/26/21 21:21 Review of Systems ROS Statement: Those systems with pertinent positive or pertinent negative responses have been documented in the HPI. ROS Other: All systems not noted in ROS Statement are negative. Constitutional: Denies: fever, chills Respiratory: Denies: cough, dyspnea Cardiovascular: Reports: chest pain. Denies: palpitations, orthopnea Gastrointestinal: Denies: abdominal pain, nausea, vomiting Genitourinary: Denies: dysuria, hematuria Musculoskeletal: Denies: back pain Skin: Denies: rash Neurological: Denies: headache, weakness EKG Findings - EKG Results: EKG: interpreted by ERMD, sinus rhythm (Rate 84 bpm), normal QRS, normal ST/T - Blocks, Hale, Hypertrophy, ST Abn: QRS axis and voltage: right axis deviation (+90 to +180) Past Medical History Past Medical History: Asthma, Diabetes Mellitus, Neurologic Disorder, Skin Disorder Additional Past Medical History / Comment(s): IDDM type I, neuropathy bilateral feet, DKA, eczema. History of Any Multi-Drug Resistant Organisms: None Reported Past Surgical History: Adenoidectomy Additional Past Surgical History / Comment(s): 2002 Past Anesthesia/Blood Transfusion Reactions: No Reported Reaction Past Psychological History: Anxiety, Depression Smoking Status: Vaper Past Alcohol Use History: Occasional Past Drug Use History: Marijuana - Past Family History Mother Family Medical History: CVA/TIA Additional Family Medical History / Comment(s): TIA Father Family Medical History: Hyperlipidemia, Hypertension Additional Family Medical History / Comment(s): . General Exam Limitations: no limitations General appearance: alert, in no apparent distress Head exam: Present: atraumatic, normocephalic Eye exam: Present: normal appearance. Absent: scleral icterus, conjunctival injection Neck exam: Present: normal inspection, full ROM Respiratory exam: Present: normal lung sounds bilaterally. Absent: respiratory distress, wheezes, rales, rhonchi, stridor, chest wall tenderness Cardiovascular Exam: Present: regular rate, normal rhythm, normal heart sounds. Absent: systolic murmur, diastolic murmur, rubs, gallop GI/Abdominal exam: Present: soft. Absent: distended, tenderness, guarding, rebound, rigid, mass Extremities exam: Present: normal inspection, normal capillary refill. Absent: pedal edema, calf tenderness Back exam: Present: normal inspection. Absent: CVA tenderness (R), CVA tenderness (L) Neurological exam: Present: alert Skin exam: Present: warm, dry, intact, normal color. Absent: rash Course Vital Signs 11/25/21 11/25/21 11/25/21 01:22 04:43 05:00 Temperature 98.4 F Pulse Rate 89 78 86 Respiratory 18 22 20 Rate Blood Pressure 104/64 108/76 110/78 O2 Sat by Pulse 99 97 97 Oximetry 11/25/21 06:01 Temperature Pulse Rate 77 Respiratory 20 Rate Blood Pressure 114/76 O2 Sat by Pulse 98 Oximetry Disposition Clinical Impression: Chest pain Disposition: HOME SELF-CARE Condition: Good Instructions (If sedation given, give patient instructions): Chest Pain (ED) Is patient prescribed a controlled substance at d/c from ED?: No Referrals: Brown Valenzuela MD [Primary Care Provider] - 1-2 days
[2021-11-25 05:38] VITALS: RESP 20
--- NOTE | 2021-11-25 05:39 | XR ---
EXAM: XR Chest, 2 Views CLINICAL HISTORY: ITS.REASON XR Reason: chest pain TECHNIQUE: Frontal and lateral views of the chest. COMPARISON: Chest radiograph on 10/27/2021 FINDINGS: Hardware: None. Lungs/pleura: Normal. No focal consolidation. No pleural effusion or pneumothorax. Heart/mediastinum: Normal. No cardiomegaly. Soft tissues: Unremarkable. Bones: No acute fracture. Upper abdomen: Normal. IMPRESSION: No acute disease identified.
[2021-11-25 06:02] VITALS: BP 114/76; PULSE 77
== END 2021-11-25 06:01 | disposition home or self-care (01) ==
LOC: EC 00:43
DX: R07.89 Other chest pain (principal); E11.9 Type 2 diabetes mellitus without complications; J45.909 Unspecified asthma, uncomplicated; F17.209 Nicotine dependence, unspecified, with unspecified nicotine-induced disorders
CPT/HCPCS: 71046; 93005; 99285

== ENCOUNTER 2021-11-26 20:42 | Observation (INO) | payer OTHER ==
[2021-11-27] MEDS ORDERED: ONDANSETRON 4 MG/2 ML VIAL IVP STA (00:49)
[2021-11-27] MEDS ORDERED: SODIUM CHLORIDE 0.9% 1,000 ML IV STA ×2 (00:49)
[2021-11-27] MEDS ORDERED: SODIUM CHLORIDE 0.9% 500 ML 500 ML IV STA (00:49)
--- NOTE | 2021-11-27 00:59 | ED ---
Recheck HPI - General Chief Complaint: Extremity Problem,Nontraumatic Stated Complaint: Bi-lateral Leg Pain Time Seen by Provider: 11/27/21 00:19 Source: patient, RN notes reviewed, old records reviewed Mode of arrival: ambulatory Limitations: no limitations - History of Present Illness Initial Comments: This is a 26-year-old male to the emergency department for evaluation. Patient is not participating history taking currently. Actively vomiting. He did make mention that his legs are hurting. Patient is well-known to our facility with frequent re-evaluations regarding diabetes and uncontrolled blood sugar MD Complaint: abnormal lab, other (not feeling well) -: unknown Returns Today for: Called Because of Abnormal Lab/Test, persistent/worsening pain related to initial visit Symptoms Since Prior Visit: no new symptoms, worsening pain Context: called for abnormal lab result Associated Symptoms: nausea Treatments Prior to Arrival: Given Pain Meds on - Related Data Home Medications Medication Instructions Recorded Confirmed Insulin Detemir (Levemir) [Levemir] 25 unit SQ DAILY 08/27/20 11/12/21 INSULIN ASPART (NovoLOG) [NovoLOG 10 unit SQ AC-TID 06/29/21 11/12/21 (formulary)] Ibuprofen [Motrin] 800 mg PO QID PRN 06/29/21 11/12/21 Gabapentin [Neurontin] 600 mg PO TID 11/12/21 11/12/21 Sertraline [Zoloft] 50 mg PO DAILY 11/12/21 11/12/21 Allergies Allergy/AdvReac Type Severity Reaction Status Date / Time No Known Allergies Allergy Verified 11/26/21 21:21 Review of Systems ROS Statement: Those systems with pertinent positive or pertinent negative responses have been documented in the HPI. ROS Other: All systems not noted in ROS Statement are negative. Past Medical History Past Medical History: Asthma, Diabetes Mellitus, Neurologic Disorder, Skin Disorder Additional Past Medical History / Comment(s): IDDM type I, neuropathy bilateral feet, DKA, eczema. History of Any Multi-Drug Resistant Organisms: None Reported Past Surgical History: Adenoidectomy Additional Past Surgical History / Comment(s): 2002 Past Anesthesia/Blood Transfusion Reactions: No Reported Reaction Past Psychological History: Anxiety, Depression Smoking Status: Vaper Past Alcohol Use History: Occasional Past Drug Use History: Marijuana - Past Family History Mother Family Medical History: CVA/TIA Additional Family Medical History / Comment(s): TIA Father Family Medical History: Hyperlipidemia, Hypertension Additional Family Medical History / Comment(s): . General Exam Limitations: no limitations General appearance: alert, in no apparent distress Head exam: Present: atraumatic, normocephalic, normal inspection Eye exam: Present: normal appearance, PERRL, EOMI. Absent: scleral icterus, conjunctival injection, periorbital swelling ENT exam: Present: normal exam, mucous membranes moist Neck exam: Present: normal inspection. Absent: tenderness, meningismus, lymphadenopathy Respiratory exam: Present: normal lung sounds bilaterally. Absent: respiratory distress, wheezes, rales, rhonchi, stridor Cardiovascular Exam: Present: regular rate, normal rhythm, normal heart sounds. Absent: systolic murmur, diastolic murmur, rubs, gallop, clicks GI/Abdominal exam: Present: soft, normal bowel sounds. Absent: distended, tenderness, guarding, rebound, rigid Extremities exam: Present: normal inspection, full ROM, normal capillary refill. Absent: tenderness, pedal edema, joint swelling, calf tenderness Back exam: Present: normal inspection Neurological exam: Present: alert, oriented X3, CN II-XII intact Psychiatric exam: Present: normal affect, normal mood Skin exam: Present: warm, dry, intact, normal color. Absent: rash Course Vital Signs 11/26/21 21:17 Temperature 97.3 F L Pulse Rate 77 Respiratory 16 Rate Blood Pressure 136/90 O2 Sat by Pulse 98 Oximetry - Reevaluation(s) Reevaluation #1: 11/27/21 01:51 medical record is reviewed Reevaluation #2: 11/27/21 02:43 still with intractable vomiting Reevaluation #3: 11/27/21 02:43 Spoke with patient regarding findings questions answered - Consultations Consultation #1: Spoke with Dr. Valenzuela who agrees to admit this patient Medical Decision Making - Medical Decision Making 26 male to the emergency department for evaluation patient presents today for evaluation of intractable nausea vomiting gastroparesis history of diabetes. P atient is not a QRS of blood sugar is elevated. Patient be admitted for symptom management - Lab Data Result diagrams: 11/27/21 01:40 11/27/21 01:40 Lab Results 11/27/21 11/27/21 11/27/21 Range/Units 01:40 01:40 01:40 WBC 7.1 (3.8-10.6) k/uL RBC 4.43 (4.30-5.90) m/uL Hgb 14.3 (13.0-17.5) gm/dL Hct 41.8 (39.0-53.0) % MCV 94.3 (80.0-100.0) fL MCH 32.2 (25.0-35.0) pg MCHC 34.1 (31.0-37.0) g/dL RDW 13.2 (11.5-15.5) % Plt Count 324 (150-450) k/uL MPV 6.8 Neutrophils % 66 % Lymphocytes % 25 % Monocytes % 5 % Eosinophils % 2 % Basophils % 1 % Neutrophils # 4.7 (1.3-7.7) k/uL Lymphocytes # 1.7 (1.0-4.8) k/uL Monocytes # 0.3 (0-1.0) k/uL Eosinophils # 0.2 (0-0.7) k/uL Basophils # 0.1 (0-0.2) k/uL VBG pH 7.45 H (7.31-7.41) VBG pCO2 42 (37-51) mmHg VBG HCO3 28 (24-28) mmol/L Sodium 133 L (137-145) mmol/L Potassium 4.2 (3.5-5.1) mmol/L Chloride 92 L (98-107) mmol/L Carbon Dioxide 30 (22-30) mmol/L Anion Gap 11 mmol/L BUN 20 (9-20) mg/dL Creatinine 0.72 (0.66-1.25) mg/dL Est GFR (CKD-EPI)AfAm >90 (>60 ml/min/1.73 sqM) Est GFR (CKD-EPI)NonAf >90 (>60 ml/min/1.73 sqM) Glucose 495 H (74-99) mg/dL Calcium 8.9 (8.4-10.2) mg/dL Phosphorus 3.8 (2.5-4.5) mg/dL Magnesium 2.3 (1.6-2.3) mg/dL Total Bilirubin 0.8 (0.2-1.3) mg/dL AST 41 (17-59) U/L ALT 45 (4-49) U/L Alkaline Phosphatase 110 (38-126) U/L Total Protein 7.3 (6.3-8.2) g/dL Albumin 4.7 (3.5-5.0) g/dL Acetone, Qual Positive (Negative) - EKG Data -: EKG Interpreted by Me (EKG shows ectopic rhythm 64 [place] 162 QRS 121 QTc 453) Disposition Clinical Impression: Altered mental status, Dehydration, Vomiting, Intractable nausea and vomiting Disposition: ADMITTED IP TO THIS [facility] Condition: Fair Is patient prescribed a controlled substance at d/c from ED?: No Referrals: Brown Valenzuela MD [Primary Care Provider] - 1-2 days
[2021-11-27 01:51] LABS: Basophils # (A) 0.1 k/uL (0-0.2); Basophils % (A) 1 %; Eosinophils # (A) 0.2 k/uL (0-0.7); Eosinophils % (A) 2 %; HCT 41.8 % (39.0-53.0); HGB 14.3 gm/dL (13.0-17.5); Lymphocytes # (A) 1.7 k/uL (1.0-4.8); Lymphocytes % (A) 25 %; MCH 32.2 pg (25.0-35.0); MCHC 34.1 g/dL (31.0-37.0); MCV 94.3 fL (80.0-100.0); Mean Platelet Volume 6.8; Monocytes # (A) 0.3 k/uL (0-1.0); Monocytes % (A) 5 %; Neutrophils # (A) 4.7 k/uL (1.3-7.7); Neutrophils % (A) 66 %; Platelet Count 324 k/uL (150-450); RBC 4.43 m/uL (4.30-5.90); RDW 13.2 % (11.5-15.5); WBC 7.1 k/uL (3.8-10.6)
[2021-11-27 01:52] LABS: VBG PH 7.45 (7.31-7.41)
[2021-11-27 02:11] LABS: ALT 45 U/L (4-49); AST 41 U/L (17-59); African American GFR (CKD) >90 (>60 ml/min/1.73 sqM); Albumin 4.7 g/dL (3.5-5.0); Alkaline Phosphatase 110 U/L (38-126); Anion Gap 11 mmol/L; Blood Urea Nitrogen 20 mg/dL (9-20); Calcium 8.9 mg/dL (8.4-10.2); Carbon Dioxide 30 mmol/L (22-30); Chloride 92 mmol/L (98-107); Glucose 495 mg/dL (74-99); Magnesium 2.3 mg/dL (1.6-2.3); Non-African American GFR(CKD) >90 (>60 ml/min/1.73 sqM); Phosphorus 3.8 mg/dL (2.5-4.5); Potassium 4.2 mmol/L (3.5-5.1); Sodium 133 mmol/L (137-145); Total Bilirubin 0.8 mg/dL (0.2-1.3); Total Protein 7.3 g/dL (6.3-8.2)
[2021-11-27] MEDS ORDERED: ONDANSETRON 4 MG/2 ML VIAL IVP PRN (02:35)
[2021-11-27] MEDS ORDERED: MORPHINE SULFATE 4 MG/ML SYRINGE IV PRN (02:35)
[2021-11-27] MEDS ORDERED: NALOXONE 0.4 MG/ML 1 ML VIAL IV PRN (02:35)
[2021-11-27] MEDS ORDERED: LORazepam 2 MG/ML INJ IV PRN (02:44)
[2021-11-27] MEDS ORDERED: INSULIN REGULAR 100 UNIT/ML VIAL (IV) IV ONE (02:44)
[2021-11-27] MEDS ORDERED: PROCHLORPERAZINE INJ 10 MG/2 ML VIAL IVP STA (02:44)
[2021-11-27 03:17] LABS: Glucose,Whole Blood 417 mg/dL (70-110)
[2021-11-27] MEDS: SODIUM CHLORIDE 0.9% 1,000 ML IV SCH ×3 (03:23→21:18)
[2021-11-27] MEDS ORDERED: PROCHLORPERAZINE INJ 10 MG/2 ML VIAL IVP PRN (04:00)
[2021-11-27 06:17] LABS: Glucose,Whole Blood 311 mg/dL (70-110)
[2021-11-27 07:47] LABS: Glucose,Whole Blood 318 mg/dL (70-110)
[2021-11-27] MEDS: INSULIN ASPART (NovoLOG) 100 UNIT/ML VIAL SQ SCH ×2 (07:51→17:23)
[2021-11-27] MEDS ORDERED: LORazepam 1 MG/0.5 ML VIAL IV PRN (11:19)
[2021-11-27 12:14] LABS: Glucose,Whole Blood 285 mg/dL (70-110)
[2021-11-27 17:12] LABS: Glucose,Whole Blood 385 mg/dL (70-110)
--- NOTE | 2021-11-27 19:04 | HP ---
HISTORY AND PHYSICAL CHIEF COMPLAINT: Intractable nausea and vomiting with uncontrolled diabetes. HISTORY OF PRESENT ILLNESS: This is another admission for this 26-year-old white male who is coming in every week or even more frequently for uncontrolled diabetes with nausea and vomiting. He is very depressed. He induces hyperglycemia and ketoacidosis by not taking his insulin. He has also been known to drink a considerable amount of alcohol. He came in this time with intractable nausea, vomiting and blood sugar around 500. REVIEW OF SYSTEMS: He is not arousable at this time. Head, ears, eyes and nose were grossly normal. There were no neck masses. The chest was clear to auscultation. Cardiac exam demonstrated sinus tachycardia. The abdomen was soft and there were no masses. Extremities were normal. IMPRESSION: 1. Intractable nausea and vomiting. 2. Dehydration. 3. Uncontrolled type 1 insulin-dependent diabetes mellitus. 4. Noncompliance. 5. Frequent episodes of ketoacidosis. 6. Depression. 7. Peripheral neuropathy. 8. Probable gastroparesis. PLAN: 1. Bedrest. 2. IV fluids. 3. Antiemetics. 4. Control diabetes. MMODL / IJN: [id number] /
[2021-11-27 20:58] LABS: Glucose,Whole Blood 211 mg/dL (70-110)
[2021-11-28 01:50] LABS: Glucose,Whole Blood 350 mg/dL (70-110)
[2021-11-28 02:09] LABS: Appearance,Urine Clear (Clear); Bilirubin,Urine Negative (Negative); Blood,Urine Negative (Negative); Color,Urine Colorless; Glucose,Urine (UA) 4+ (Negative); Ketones,Urine 1+ (Negative); Leukocyte Esterase,Urine Negative (Negative); Nitrite,Urine Negative (Negative); Protein,Urine Negative (Negative); Specific Gravity,Urine 1.006 (1.001-1.035); Urobilinogen,Urine <2.0 mg/dL (<2.0)
[2021-11-28] MEDS: SODIUM CHLORIDE 0.9% 1,000 ML IV SCH ×2 (02:20→12:36)
[2021-11-28 02:53] VITALS: RESP 18
[2021-11-28 07:04] LABS: Glucose,Whole Blood 333 mg/dL (70-110)
[2021-11-28] MEDS: INSULIN ASPART (NovoLOG) 100 UNIT/ML VIAL SQ SCH (07:28)
[2021-11-28 10:28] LABS: Basophils # (A) 0.08 X 10*3/uL (0.00-0.10); Basophils % (A) 0.7 %; Eosinophils # (A) 0.29 X 10*3/uL (0.04-0.35); Eosinophils % (A) 2.7 %; HCT 37.4 % (39.6-50.0); HGB 12.4 g/dL (13.0-17.0); Immature Grans, Automated 0.2 %; Lymphocytes # (A) 4.16 X 10*3/uL (0.90-5.00); Lymphocytes % (A) 38.2 %; MCH 30.7 pg (27.0-32.0); MCHC 33.2 g/dL (32.0-37.0); MCV 92.6 fL (80.0-97.0); Mean Platelet Volume 9.4 fL (9.5-12.2); Monocytes # (A) 0.83 X 10*3/uL (0.20-1.00); Monocytes % (A) 7.6 %; NRBC Per 100 WBC 0 /100 WBCS (0.0-0.0); Neutrophils # (A) 5.52 X 10*3/uL (1.80-7.70); Neutrophils % (A) 50.6 %; Platelet Count 274 X 10*3/uL (140-440); RBC 4.04 X 10*6/uL (4.40-5.60)
[2021-11-28 10:49] LABS: African American GFR (CKD) 151.2 (60.0-200.0); Albumin 3.7 g/dL (3.8-4.9); Albumin/Globulin Ratio 2.1 (1.60-3.17); Anion Gap 9.1 mmol/L (10.00-18.00); BUN/Creat Ratio 10.58 Ratio (12.00-20.00); Blood Urea Nitrogen 7.6 mg/dL (9.0-27.0); Calcium 8.3 mg/dL (8.7-10.3); Carbon Dioxide 27.2 mmol/L (20.0-27.5); Globulin 1.8 g/dL (1.6-3.3); Magnesium 2.1 mg/dL (1.5-2.4); Non-African American GFR(CKD) 130.5 (60.0-200.0); Phosphorus 2.5 mg/dL (2.4-5.1); Potassium 4.6 mmol/L (3.5-5.5); Total Bilirubin 0.5 mg/dL (0.30-1.20); Total Protein 5.5 g/dL (6.2-8.2)
[2021-11-28 10:57] VITALS: BMI 18.7
[2021-11-28 11:57] LABS: Glucose,Whole Blood 218 mg/dL (70-110)
[2021-11-28 13:35] VITALS: BP 120/77; TEMP 98
[2021-11-28 13:39] VITALS: PULSE 104
[2021-11-28] MEDS ORDERED: IBUPROFEN 800 MG TAB PO PRN (15:33)
[2021-11-28] MEDS ORDERED: GABAPENTIN 300 MG CAP PO SCH (16:00)
[2021-11-28] MEDS ORDERED: INSULIN ASPART (NovoLOG) 100 UNIT/ML VIAL SQ SCH (17:30)
--- NOTE | 2021-11-28 19:26 | DS ---
DISCHARGE SUMMARY CHIEF COMPLAINT: Intractable nausea and vomiting and uncontrolled diabetes. HISTORY OF PRESENT ILLNESS AND PHYSICAL EXAMINATION: Details of this man's history and physical can be found in the initial workup. LABORATORY STUDIES: While he was in the hospital, he had laboratory studies, details of which can be found in the laboratory section of his chart. COURSE IN THE HOSPITAL: After admission, he was placed on bedrest and started on intravenous fluids and his nausea and vomiting were controlled. Blood sugars were brought down. He was doing well and felt he could be discharged on the sixth and he will go home on his usual activity, diet and insulin management. FINAL DIAGNOSES: 1. Uncontrolled type 1 insulin dependent diabetes mellitus. 2. Intractable nausea and vomiting. 3. Peripheral neuropathy. 4. Possible gastroparesis. 5. Depression. OPERATIONS: None. CONSULTATION: None. He is improved. MMODL / IJN: [id number] /
[2021-11-28] MEDS ORDERED: traZODone HCL 100 MG TAB PO SCH (21:00)
[2021-11-29] MEDS ORDERED: INSULIN DETEMIR (LEVEMIR) 100 UNIT/ML SYR SQ SCH (07:00)
[2021-11-29] MEDS ORDERED: SERTRALINE 50 MG TAB PO SCH (09:00)
== END 2021-11-28 16:50 | disposition home or self-care (01) ==
LOC: EC 20:42 → 6NMEDSUR 11-27 02:35
PROVIDERS: ADMIT Family Medicine; ATTEND Family Medicine
DX: E10.65 Type 1 diabetes mellitus with hyperglycemia (principal); E10.43 Type 1 diabetes mellitus with diabetic autonomic (poly)neuropathy; G62.9 Polyneuropathy, unspecified; F32.A Depression, unspecified; E10.10 Type 1 diabetes mellitus with ketoacidosis without coma; E86.0 Dehydration; Z91.19 Patient's noncompliance with other medical treatment and regimen; Z91.14 Patient's other noncompliance with medication regimen; T38.3X6A Underdosing of insulin and oral hypoglycemic [antidiabetic] drugs, initial encounter; F41.9 Anxiety disorder, unspecified; J45.909 Unspecified asthma, uncomplicated; L30.9 Dermatitis, unspecified; Z79.899 Other long term (current) drug therapy; Z79.4 Long term (current) use of insulin; Z82.49 Family history of ischemic heart disease and other diseases of the circulatory system; Z82.3 Family history of stroke; Z83.438 Family history of other disorder of lipoprotein metabolism and other lipidemia
CPT/HCPCS: 96361 ×2; 96374; 96375; 99285; 36415; 93005; 80053 ×2; 82803; 82009; 83690; 83735 ×2; 84100 ×2; 85025 ×2; 81003; G0378 ×2; J0780; J2405

== ENCOUNTER 2021-12-03 10:39 | Emergency (ER) | payer OTHER ==
[2021-12-03 11:02] VITALS: TEMP 97.9
[2021-12-03 11:13] LABS: Glucose,Whole Blood 253 mg/dL (70-110)
[2021-12-03] MEDS ORDERED: ONDANSETRON 4 MG/2 ML VIAL IVP STA (11:29)
[2021-12-03] MEDS ORDERED: SODIUM CHLORIDE 0.9% 2,000 ML IV STA (11:29)
--- NOTE | 2021-12-03 11:44 | ED ---
General Adult HPI - General Chief complaint: Nausea/Vomiting/Diarrhea Stated complaint: Vomiting Time Seen by Provider: 12/03/21 11:06 Source: patient, RN notes reviewed Mode of arrival: ambulatory Limitations: no limitations - History of Present Illness Initial comments: This is a 26-year-old male well-known to the emergency Department presents today with chief complaint of abdominal pain, nausea vomiting. Patient has not checked his blood sugar today. Patient is known type I diabetic poorly controlled. Patient states that he started vomiting swallowing developed abdominal pain after. Patient had recent hospitalization for intractable nausea vomiting. Patient denies any chest pain back pain flank pain fevers chills cough and cold like symptoms. - Related Data Home Medications Medication Instructions Recorded Confirmed Insulin Detemir (Levemir) [Levemir] 20 unit SQ DAILY 08/27/20 12/03/21 INSULIN ASPART (NovoLOG) [NovoLOG 10 unit SQ AC-TID 06/29/21 12/03/21 (formulary)] Ibuprofen [Motrin] 800 mg PO QID PRN 06/29/21 12/03/21 Gabapentin [Neurontin] 600 mg PO TID 11/12/21 12/03/21 Sertraline [Zoloft] 50 mg PO DAILY 11/12/21 12/03/21 traZODone HCL 100 mg PO HS 11/27/21 12/03/21 Previous Rx's Medication Instructions Recorded Metoclopramide [Reglan] 10 mg PO TID PRN #15 tab 12/03/21 Allergies Allergy/AdvReac Type Severity Reaction Status Date / Time No Known Allergies Allergy Verified 12/03/21 14:26 Review of Systems ROS Statement: Those systems with pertinent positive or pertinent negative responses have been documented in the HPI. ROS Other: All systems not noted in ROS Statement are negative. Past Medical History Past Medical History: Asthma, Diabetes Mellitus, Neurologic Disorder, Skin Disor yevgeniy Additional Past Medical History / Comment(s): IDDM type I, neuropathy bilateral feet, DKA, eczema. History of Any Multi-Drug Resistant Organisms: None Reported Past Surgical History: Adenoidectomy Additional Past Surgical History / Comment(s): 2002 Past Anesthesia/Blood Transfusion Reactions: No Reported Reaction Past Psychological History: Anxiety, Depression Smoking Status: Vaper Past Alcohol Use History: Occasional Past Drug Use History: Marijuana - Past Family History Mother Family Medical History: CVA/TIA Additional Family Medical History / Comment(s): TIA Father Family Medical History: Hyperlipidemia, Hypertension Additional Family Medical History / Comment(s): . General Exam Limitations: no limitations General appearance: alert, in no apparent distress Head exam: Present: atraumatic, normocephalic, normal inspection Eye exam: Present: normal appearance, PERRL, EOMI. Absent: scleral icterus, conjunctival injection, periorbital swelling ENT exam: Present: normal exam, normal oropharynx, mucous membranes moist Neck exam: Present: normal inspection, full ROM. Absent: tenderness, meningismus, lymphadenopathy Respiratory exam: Present: normal lung sounds bilaterally. Absent: respiratory distress, wheezes, rales, rhonchi, stridor Cardiovascular Exam: Present: regular rate, normal rhythm, normal heart sounds. Absent: systolic murmur, diastolic murmur, rubs, gallop, clicks GI/Abdominal exam: Present: soft, tenderness, normal bowel sounds. Absent: distended, guarding, rebound, rigid Course Vital Signs 12/03/21 12/03/21 12/03/21 11:00 11:52 12:44 Temperature 97.9 F Pulse Rate 106 H 70 69 Respiratory 20 18 16 Rate Blood Pressure 154/107 164/119 159/112 O2 Sat by Pulse 100 100 100 Oximetry Medical Decision Making - Medical Decision Making 26 old male presented for nausea vomiting. Patient was well hydrated, given antiemetics. Labs reveal mild acidosis from dehydration though patient is not acidotic. Patient does not have any evidence of DKA. Patient may have underlying gastroparesis as he had recent hospitalization for similar c omplaints. Patient will be discharged with Reglan. Patient follow-up with PCP return parameters were discussed. - Lab Data Result diagrams: 12/03/21 11:52 12/03/21 11:52 Lab Results 12/03/21 12/03/21 12/03/21 Range/Units 11:10 11:52 11:52 WBC 7.0 (3.8-10.6) k/uL RBC 4.48 (4.30-5.90) m/uL Hgb 14.4 (13.0-17.5) gm/dL Hct 41.3 (39.0-53.0) % MCV 92.3 (80.0-100.0) fL MCH 32.1 (25.0-35.0) pg MCHC 34.8 (31.0-37.0) g/dL RDW 13.3 (11.5-15.5) % Plt Count 271 (150-450) k/uL MPV 6.9 Neutrophils % 72 % Lymphocytes % 22 % Monocytes % 3 % Eosinophils % 2 % Basophils % 1 % Neutrophils # 5.0 (1.3-7.7) k/uL Lymphocytes # 1.5 (1.0-4.8) k/uL Monocytes # 0.2 (0-1.0) k/uL Eosinophils # 0.1 (0-0.7) k/uL Basophils # 0.0 (0-0.2) k/uL VBG pH (7.31-7.41) VBG pCO2 (37-51) mmHg VBG HCO3 (24-28) mmol/L Sodium 132 L (137-145) mmol/L Potassium 4.9 (3.5-5.1) mmol/L Chloride 97 L (98-107) mmol/L Carbon Dioxide 22 (22-30) mmol/L Anion Gap 13 mmol/L BUN 18 (9-20) mg/dL Creatinine 0.64 L (0.66-1.25) mg/dL Est GFR (CKD-EPI)AfAm >90 (>60 ml/min/1.73 sqM) Est GFR (CKD-EPI)NonAf >90 (>60 ml/min/1.73 sqM) Glucose 244 H (74-99) mg/dL POC Glucose (mg/dL) 253 H (70-110) mg/dL POC Glu Compound Machine Operator ID Selena Fofana Plasma Lactic Acid Len (0.7-2.0) mmol/L Calcium 9.0 (8.4-10.2) mg/dL Magnesium 1.8 (1.6-2.3) mg/dL Total Bilirubin 1.2 (0.2-1.3) mg/dL AST 41 (17-59) U/L ALT 27 (4-49) U/L Alkaline Phosphatase 80 (38-126) U/L Total Protein 7.0 (6.3-8.2) g/dL Albumin 4.6 (3.5-5.0) g/dL Lipase 141 (23-300) U/L Urine Color Urine Appearance (Clear) Urine pH (5.0-8.0) Ur Specific [place] (1.001-1.035) Urine Protein (Negative) Urine Glucose (UA) (Negative) Urine Ketones (Negative) Urine Blood (Negative) Urine Nitrite (Negative) Urine Bilirubin (Negative) Urine Urobilinogen (<2.0) mg/dL Ur Leukocyte Esterase (Negative) Acetone, Qual Negative (Negative) 12/03/21 12/03/21 12/03/21 Range/Units 11:52 11:52 12:30 WBC (3.8-10.6) k/uL RBC (4.30-5.90) m/uL Hgb (13.0-17.5) gm/dL Hct (39.0-53.0) % MCV (80.0-100.0) fL MCH (25.0-35.0) pg MCHC (31.0-37.0) g/dL RDW (11.5-15.5) % Plt Count (150-450) k/uL MPV Neutrophils % % Lymphocytes % % Monocytes % % Eosinophils % % Basophils % % Neutrophils # (1.3-7.7) k/uL Lymphocytes # (1.0-4.8) k/uL Monocytes # (0-1.0) k/uL Eosinophils # (0-0.7) k/uL Basophils # (0-0.2) k/uL VBG pH 7.58 H (7.31-7.41) VBG pCO2 27 L (37-51) mmHg VBG HCO3 26 (24-28) mmol/L Sodium (137-145) mmol/L Potassium (3.5-5.1) mmol/L Chloride (98-107) mmol/L Carbon Dioxide (22-30) mmol/L Anion Gap mmol/L BUN (9-20) mg/dL Creatinine (0.66-1.25) mg/dL Est GFR (CKD-EPI)AfAm (>60 ml/min/1.73 sqM) Est GFR (CKD-EPI)NonAf (>60 ml/min/1.73 sqM) Glucose (74-99) mg/dL POC Glucose (mg/dL) (70-110) mg/dL POC Glu Compound Machine Operator ID Plasma Lactic Acid Len 3.6 H* (0.7-2.0) mmol/L Calcium (8.4-10.2) mg/dL Magnesium (1.6-2.3) mg/dL Total Bilirubin (0.2-1.3) mg/dL AST (17-59) U/L ALT (4-49) U/L Alkaline Phosphatase (38-126) U/L Total Protein (6.3-8.2) g/dL Albumin (3.5-5.0) g/dL Lipase (23-300) U/L Urine Color Colorless Urine Appearance Clear (Clear) Urine pH 8.5 H (5.0-8.0) Ur Specific [place] 1.013 (1.001-1.035) Urine Protein Negative (Negative) Urine Glucose (UA) 4+ H (Negative) Urine Ketones Trace H (Negative) Urine Blood Negative (Negative) Urine Nitrite Negative (Negative) Urine Bilirubin Negative (Negative) Urine Urobilinogen <2.0 (<2.0) mg/dL Ur Leukocyte Esterase Negative (Negative) Acetone, Qual (Negative) Disposition Clinical Impression: Nausea & vomiting Disposition: HOME SELF-CARE Condition: Stable Instructions (If sedation given, give patient instructions): Acute Nausea and Vomiting (ED) Additional Instructions: Please return to the Emergency Department if symptoms worsen or any other concerns. Prescriptions: Metoclopramide [Reglan] 10 mg PO TID PRN #15 tab PRN Reason: Nausea Is patient prescribed a controlled substance at d/c from ED?: No Referrals: Brown Valenzuela MD [Primary Care Provider] - 1-2 days Time of Disposition: 15:03
[2021-12-03 12:03] LABS: VBG PH 7.58 (7.31-7.41)
[2021-12-03 12:10] LABS: Basophils % (A) 1 %; Eosinophils # (A) 0.1 k/uL (0-0.7); Eosinophils % (A) 2 %; HCT 41.3 % (39.0-53.0); HGB 14.4 gm/dL (13.0-17.5); Lymphocytes # (A) 1.5 k/uL (1.0-4.8); Lymphocytes % (A) 22 %; MCH 32.1 pg (25.0-35.0); MCHC 34.8 g/dL (31.0-37.0); MCV 92.3 fL (80.0-100.0); Mean Platelet Volume 6.9; Monocytes # (A) 0.2 k/uL (0-1.0); Monocytes % (A) 3 %; Neutrophils % (A) 72 %; Platelet Count 271 k/uL (150-450); RBC 4.48 m/uL (4.30-5.90); RDW 13.3 % (11.5-15.5)
[2021-12-03 12:22] LABS: ALT 27 U/L (4-49); African American GFR (CKD) >90 (>60 ml/min/1.73 sqM); Albumin 4.6 g/dL (3.5-5.0); Anion Gap 13 mmol/L; Blood Urea Nitrogen 18 mg/dL (9-20); Carbon Dioxide 22 mmol/L (22-30); Chloride 97 mmol/L (98-107); Glucose 244 mg/dL (74-99); Lipase 141 U/L (23-300); Non-African American GFR(CKD) >90 (>60 ml/min/1.73 sqM); Sodium 132 mmol/L (137-145); Total Bilirubin 1.2 mg/dL (0.2-1.3)
[2021-12-03 12:25] LABS: AST 41 U/L (17-59); Alkaline Phosphatase 80 U/L (38-126); Magnesium 1.8 mg/dL (1.6-2.3); Potassium 4.9 mmol/L (3.5-5.1)
[2021-12-03 12:45] VITALS: RESP 16
[2021-12-03 13:04] LABS: Appearance,Urine Clear (Clear); Bilirubin,Urine Negative (Negative); Blood,Urine Negative (Negative); Color,Urine Colorless; Glucose,Urine (UA) 4+ (Negative); Ketones,Urine Trace (Negative); Leukocyte Esterase,Urine Negative (Negative); Nitrite,Urine Negative (Negative); PH, Urine 8.5 (5.0-8.0); Protein,Urine Negative (Negative); Specific Gravity,Urine 1.013 (1.001-1.035); Urobilinogen,Urine <2.0 mg/dL (<2.0)
[2021-12-03] MEDS ORDERED: SODIUM CHLORIDE 0.9% 1,000 ML IV ONE (13:33)
[2021-12-03] MEDS ORDERED: diphenhydrAMINE 50 MG/ML 1 ML VIAL IVP STA (14:15)
[2021-12-03] MEDS ORDERED: HYDROmorphone 0.5 MG/0.5 ML SYRINGE IVP STA (14:15)
[2021-12-03 15:01] VITALS: BP 138/106; PULSE 94
== END 2021-12-03 15:18 | disposition home or self-care (01) ==
LOC: EC 10:39
DX: R11.2 Nausea with vomiting, unspecified (principal); R10.9 Unspecified abdominal pain; E87.2 Acidosis; E86.0 Dehydration; J45.909 Unspecified asthma, uncomplicated; F17.290 Nicotine dependence, other tobacco product, uncomplicated; E10.42 Type 1 diabetes mellitus with diabetic polyneuropathy
CPT/HCPCS: 36415; 80053; 82803; 82009; 83605; 83690; 83735; 85025; 81003; 99284; 96374; 96375; 96361; J1200; J2405; J1170; J1790

== ENCOUNTER 2021-12-19 14:15 | Inpatient (IN) | payer OTHER ==
[2021-12-19] MEDS ORDERED: SODIUM CHLORIDE 0.9% 2,000 ML IV STA (14:17)
[2021-12-19 14:45] LABS: Glucose,Whole Blood 593 mg/dL (70-110)
[2021-12-19 14:58] LABS: HCT 52.5 % (39.0-53.0); HGB 16.3 gm/dL (13.0-17.5); MCH 31.6 pg (25.0-35.0); MCHC 31.1 g/dL (31.0-37.0); MCV 101.7 fL (80.0-100.0); Macrocytosis Slight; Mean Platelet Volume 7.9; Platelet Count 432 k/uL (150-450); RBC 5.16 m/uL (4.30-5.90); WBC 31.2 k/uL (3.8-10.6)
[2021-12-19 15:00] LABS: VBG PH 7.13 (7.31-7.41)
[2021-12-19] MEDS ORDERED: ONDANSETRON 4 MG/2 ML VIAL IVP STA (15:00)
--- NOTE | 2021-12-19 15:00 | ED ---
General Adult HPI - General Chief complaint: Nausea/Vomiting/Diarrhea Stated complaint: DKA Time Seen by Provider: 12/19/21 14:17 Source: patient, EMS, RN notes reviewed Mode of arrival: EMS Limitations: no limitations - History of Present Illness Initial comments: This a 26-year-old male presents emergency from via EMS chief complaint of nausea vomiting hyperglycemia. Patient is well-known the results from his head. Poorly controlled diabetes, recent history of diagnosis of gastroparesis. Patient states that he's been vomiting over the last 2 days. Patient states he did not check his blood sugar elevated blood sugar was this morning. Patient complains of diffuse abdominal pain. Patient denies chest pain does complain palpitations. Patient states he feels very weak, lethargic. - Related Data Home Medications Medication Instructions Recorded Confirmed Insulin Detemir (Levemir) [Levemir] 20 unit SQ DAILY 08/27/20 12/03/21 INSULIN ASPART (NovoLOG) [NovoLOG 10 unit SQ AC-TID 06/29/21 12/03/21 (formulary)] Ibuprofen [Motrin] 800 mg PO QID PRN 06/29/21 12/03/21 Gabapentin [Neurontin] 600 mg PO TID 11/12/21 12/03/21 Sertraline [Zoloft] 50 mg PO DAILY 11/12/21 12/03/21 traZODone HCL 100 mg PO HS 11/27/21 12/03/21 Previous Rx's Medication Instructions Recorded Metoclopramide [Reglan] 10 mg PO TID PRN #15 tab 12/03/21 Allergies Allergy/AdvReac Type Severity Reaction Status Date / Time No Known Allergies Allergy Verified 12/03/21 14:26 Review of Systems ROS Statement: Those systems with pertinent positive or pertinent negative responses have been documented in the HPI. ROS Other: All systems not noted in ROS Statement are negative. Past Medical History Past Medical History: Asthma, Diabetes Mellitus, Neurologic Disorder, Skin Disorder Additional Past Medical History / Comment(s): IDDM type I, neuropathy bilateral feet, DKA, eczema. History of Any Multi-Drug Resistant Organisms: None Reported Past Surgical History: Adenoidectomy Additional Past Surgical History / Comment(s): 2002 Past Anesthesia/Blood Transfusion Reactions: No Reported Reaction Past Psychological History: Anxiety, Depression Smoking Status: Vaper Past Alcohol Use History: Occasional Past Drug Use History: Marijuana - Past Family History Mother Family Medical History: CVA/TIA Additional Family Medical History / Comment(s): TIA Father Family Medical History: Hyperlipidemia, Hypertension Additional Family Medical History / Comment(s): . General Exam General appearance: alert, in no apparent distress, lethargic Head exam: Present: atraumatic, normocephalic, normal inspection Eye exam: Present: normal appearance, PERRL, EOMI. Absent: scleral icterus, conjunctival injection, periorbital swelling ENT exam: Present: normal exam, normal oropharynx, mucous membranes moist Neck exam: Present: normal inspection, full ROM. Absent: tenderness, meningismus, lymphadenopathy Respiratory exam: Present: normal lung sounds bilaterally. Absent: respiratory distress, wheezes, rales, rhonchi, stridor Cardiovascular Exam: Present: normal rhythm, tachycardia, normal heart sounds. Absent: systolic murmur, diastolic murmur, rubs, gallop, clicks GI/Abdominal exam: Present: soft, normal bowel sounds. Absent: distended, tenderness, guarding, rebound, rigid Neurological exam: Present: alert, oriented X3 Skin exam: Present: warm, dry, intact, normal color. Absent: rash Course Vital Signs 12/19/21 14:18 Temperature 97.5 F L Pulse Rate 140 H Respiratory 22 Rate Blood Pressure 119/74 O2 Sat by Pulse 98 Oximetry Medical Decision Making - Medical Decision Making 26-year-old male presents from for nausea vomiting hyperglycemia. Patient found to be in DKA, pH 7.13 with a bicarb of 5 anion gap 38. Patient was started on IV fluid bolus, maintenance fluids, insulin drip along with insulin bolus. Patient will have repeat labs every 4 hours, case discussed with admitting physician Dr. Valenzuela case discussed with Dr. Montoya. Patient placed in ICU for further treatment and management. - Lab Data Result diagrams: 12/19/21 14:43 12/19/21 14:43 Lab Results 12/19/21 12/19/21 12/19/21 Range/Units 14:43 14:43 14:43 WBC 31.2 H (3.8-10.6) k/uL RBC 5.16 (4.30-5.90) m/uL Hgb 16.3 (13.0-17.5) gm/dL Hct 52.5 (39.0-53.0) % MCV 101.7 H D (80.0-100.0) fL MCH 31.6 (25.0-35.0) pg MCHC 31.1 (31.0-37.0) g/dL RDW 13.0 (11.5-15.5) % Plt Count 432 (150-450) k/uL MPV 7.9 Hypochromasia Moderate Macrocytosis Slight VBG pH (7.31-7.41) VBG pCO2 (37-51) mmHg VBG HCO3 (24-28) mmol/L Sodium 140 (137-145) mmol/L Potassium 5.7 H (3.5-5.1) mmol/L Chloride 97 L (98-107) mmol/L Carbon Dioxide 5 L* (22-30) mmol/L Anion Gap 38 mmol/L BUN 32 H (9-20) mg/dL Creatinine 1.48 H (0.66-1.25) mg/dL Est GFR (CKD-EPI)AfAm 76 (>60 ml/min/1.73 sqM) Est GFR (CKD-EPI)NonAf 66 (>60 ml/min/1.73 sqM) Glucose 670 H* (74-99) mg/dL POC Glucose (mg/dL) (70-110) mg/dL POC Glu Funds Transfer Clerk ID Plasma Lactic Acid Len 3.9 H* (0.7-2.0) mmol/L Calcium 9.8 (8.4-10.2) mg/dL Magnesium 2.0 (1.6-2.3) mg/dL Total Bilirubin 0.7 (0.2-1.3) mg/dL AST 20 (17-59) U/L ALT 21 (4-49) U/L Alkaline Phosphatase 107 (38-126) U/L Total Protein 8.1 (6.3-8.2) g/dL Albumin 5.4 H (3.5-5.0) g/dL Amylase 45 (30-110) U/L Lipase 39 (23-300) U/L 12/19/21 12/19/21 Range/Units 14:43 14:43 WBC (3.8-10.6) k/uL RBC (4.30-5.90) m/uL Hgb (13.0-17.5) gm/dL Hct (39.0-53.0) % MCV (80.0-100.0) fL MCH (25.0-35.0) pg MCHC (31.0-37.0) g/dL RDW (11.5-15.5) % Plt Count (150-450) k/uL MPV Hypochromasia Macrocytosis VBG pH 7.13 L* (7.31-7.41) VBG pCO2 17 L* (37-51) mmHg VBG HCO3 5 L* (24-28) mmol/L Sodium (137-145) mmol/L Potassium (3.5-5.1) mmol/L Chloride (98-107) mmol/L Carbon Dioxide (22-30) mmol/L Anion Gap mmol/L BUN (9-20) mg/dL Creatinine (0.66-1.25) mg/dL Est GFR (CKD-EPI)AfAm (>60 ml/min/1.73 sqM) Est GFR (CKD-EPI)NonAf (>60 ml/min/1.73 sqM) Glucose (74-99) mg/dL POC Glucose (mg/dL) 593 H (70-110) mg/dL POC Glu Funds Transfer Clerk ID Nesha Perry Plasma Lactic Acid Len (0.7-2.0) mmol/L Calcium (8.4-10.2) mg/dL Magnesium (1.6-2.3) mg/dL Total Bilirubin (0.2-1.3) mg/dL AST (17-59) U/L ALT (4-49) U/L Alkaline Phosphatase (38-126) U/L Total Protein (6.3-8.2) g/dL Albumin (3.5-5.0) g/dL Amylase (30-110) U/L Lipase (23-300) U/L Critical Care Time Critical Care Time: Yes Total Critical Care Time: 35 Disposition Clinical Impression: DKA (diabetic ketoacidoses) Disposition[facility] Condition: Serious Referrals: Brown Valenzuela MD [Primary Care Provider] - 1-2 days Time of Disposition: 15:29
[2021-12-19 15:02] LABS: Albumin 5.4 g/dL (3.5-5.0); Calcium 9.8 mg/dL (8.4-10.2); Potassium 5.7 mmol/L (3.5-5.1); Total Bilirubin 0.7 mg/dL (0.2-1.3); Total Protein 8.1 g/dL (6.3-8.2)
[2021-12-19] MEDS ORDERED: INSULIN REGULAR BOLUS (FROM DRIP BAG) IV ONE (15:07)
[2021-12-19] MEDS ORDERED: METOCLOPRAMIDE 5 MG/ML 2 ML VIAL IVP PRN (15:29)
[2021-12-19 15:31] LABS: Glucose,Whole Blood 536 mg/dL (70-110)
[2021-12-19] MEDS ORDERED: INSULIN REGULAR 100 UNIT in SODIUM CHLORIDE 0.9% 100 ML IV SCH (16:00)
[2021-12-19] MEDS: SODIUM CHLORIDE 0.9% 1,000 ML IV SCH (16:05)
[2021-12-19 16:18] LABS: Band Neutrophils % 1 %; Basophils # (M) 0.31 k/uL (0-0.2); Hypochromasia Slight; Monocytes # (M) 0.94 k/uL (0-1.0); Neutrophils % (M) 87 %; Nucleated Red Blood Cells 0 /100 WBC (0-0); Total Cells Counted 100
[2021-12-19 16:27] LABS: Appearance,Urine Clear (Clear); Bilirubin,Urine Negative (Negative); Blood,Urine Negative (Negative); Color,Urine Light Yellow; Glucose,Urine (UA) 4+ (Negative); Leukocyte Esterase,Urine Negative (Negative); Nitrite,Urine Negative (Negative); Protein,Urine Trace (Negative); Specific Gravity,Urine 1.023 (1.001-1.035); Urobilinogen,Urine <2.0 mg/dL (<2.0)
[2021-12-19 16:51] LABS: Ketones,Urine 4+ (Negative)
[2021-12-19 16:56] LABS: African American GFR (CKD) >90 (>60 ml/min/1.73 sqM); Anion Gap 29 mmol/L; Blood Urea Nitrogen 30 mg/dL (9-20); Chloride 108 mmol/L (98-107); Non-African American GFR(CKD) 79 (>60 ml/min/1.73 sqM); Potassium 4.9 mmol/L (3.5-5.1); Sodium 143 mmol/L (137-145)
[2021-12-19 17:02] LABS: Carbon Dioxide 6 mmol/L (22-30); Glucose 585 mg/dL (74-99)
[2021-12-19 17:02] LABS: Glucose,Whole Blood 445 mg/dL (70-110)
[2021-12-19 18:05] LABS: Glucose,Whole Blood 391 mg/dL (70-110)
[2021-12-19 19:01] LABS: Glucose,Whole Blood 288 mg/dL (70-110)
[2021-12-19] MEDS: D5-0.45% NACL WITH KCL 20MEQ/L 1,000 ML IV SCH (19:21)
[2021-12-19 19:58] LABS: African American GFR (CKD) >90 (>60 ml/min/1.73 sqM); Anion Gap 18 mmol/L; Blood Urea Nitrogen 30 mg/dL (9-20); Carbon Dioxide 13 mmol/L (22-30); Chloride 114 mmol/L (98-107); Glucose 275 mg/dL (74-99); Non-African American GFR(CKD) >90 (>60 ml/min/1.73 sqM); Potassium 4.5 mmol/L (3.5-5.1); Sodium 145 mmol/L (137-145)
[2021-12-19 20:02] LABS: Glucose,Whole Blood 266 mg/dL (70-110)
[2021-12-19 21:25] LABS: Glucose,Whole Blood 214 mg/dL (70-110)
[2021-12-19 22:01] LABS: Glucose,Whole Blood 226 mg/dL (70-110)
[2021-12-19 23:16] LABS: Glucose,Whole Blood 172 mg/dL (70-110)
[2021-12-20 00:02] LABS: Glucose,Whole Blood 181 mg/dL (70-110)
[2021-12-20] MEDS: SODIUM CHLORIDE 0.9% 1,000 ML IV SCH ×4 (00:48→21:39)
[2021-12-20 01:05] LABS: Glucose,Whole Blood 139 mg/dL (70-110)
[2021-12-20 02:21] LABS: Glucose,Whole Blood 131 mg/dL (70-110)
[2021-12-20 03:26] LABS: Glucose,Whole Blood 138 mg/dL (70-110)
[2021-12-20] MEDS: D5-0.45% NACL WITH KCL 20MEQ/L 1,000 ML IV SCH (03:31)
[2021-12-20 04:22] LABS: Glucose,Whole Blood 149 mg/dL (70-110)
[2021-12-20 05:03] LABS: Glucose,Whole Blood 173 mg/dL (70-110)
[2021-12-20 06:13] LABS: Glucose,Whole Blood 187 mg/dL (70-110)
[2021-12-20 06:35] LABS: HCT 39.8 % (39.0-53.0); MCH 31.4 pg (25.0-35.0); Platelet Count 333 k/uL (150-450); RBC 4.19 m/uL (4.30-5.90); RDW 13.3 % (11.5-15.5); WBC 20.6 k/uL (3.8-10.6)
[2021-12-20 06:39] LABS: ALT 14 U/L (4-49); AST 14 U/L (17-59); African American GFR (CKD) >90 (>60 ml/min/1.73 sqM); Albumin 3.8 g/dL (3.5-5.0); Alkaline Phosphatase 69 U/L (38-126); Anion Gap 9 mmol/L; Blood Urea Nitrogen 25 mg/dL (9-20); Calcium 8.5 mg/dL (8.4-10.2); Carbon Dioxide 20 mmol/L (22-30); Chloride 108 mmol/L (98-107); Glucose 210 mg/dL (74-99); Non-African American GFR(CKD) >90 (>60 ml/min/1.73 sqM); Potassium 4.3 mmol/L (3.5-5.1); Sodium 137 mmol/L (137-145); Total Bilirubin 0.4 mg/dL (0.2-1.3)
[2021-12-20 06:43] LABS: HGB 13.2 gm/dL (13.0-17.5)
[2021-12-20 06:44] LABS: MCV 94.9 fL (80.0-100.0)
[2021-12-20 07:11] LABS: Glucose,Whole Blood 218 mg/dL (70-110)
[2021-12-20] MEDS: INSULIN ASPART (NovoLOG) 100 UNIT/ML VIAL SQ SCH ×6 (07:11→21:39)
[2021-12-20 08:00] LABS: Glucose,Whole Blood 204 mg/dL (70-110)
[2021-12-20] MEDS ORDERED: D5-0.45% NACL WITH KCL 20MEQ/L 1,000 ML IV SCH (08:00)
[2021-12-20] MEDS: INSULIN DETEMIR (LEVEMIR) 100 UNIT/ML SYR SQ SCH (09:04)
[2021-12-20 11:03] VITALS: BMI 16.5
[2021-12-20] MEDS ORDERED: METOCLOPRAMIDE 10 MG TAB PO PRN (11:08)
--- NOTE | 2021-12-20 11:08 | P.CNPUL ---
History of Present Illness Consult date: 12/20/21 Requesting physician: Brown Valenzuela Reason for consult: other (Critical care management) History of present illness: This is a pleasant 26-year-old white male patient with known history of type 1 diabetes mellitus with multiple episodes of diabetic ketoacidosis requiring frequent hospitalization, diabetic neuropathy, mild intermittent bronchial asthma, major depression and generalized anxiety disorder with history of multiple overdoses in the past and suicidal attempts, history of medical noncompliance, and marijuana use. He was brought into the emergency room today by EMS with complaints of nausea vomiting and hyperglycemia. He has had recent history of gastroparesis. He had been vomiting 2 days prior to his arrival. Diffuse abdominal discomfort. Weak and lethargic. Initial blood sugar 670. Anion gap 38. Bicarb of 5. He was admitted to the intensive care unit with diabetic ketoacidosis. He was initiated on the DKA protocol. He is seen today in consultation in the ICU. He is currently awake, alert, still somewhat weak and he is maintaining O2 saturations in the mid 90s on room air. He's been afebrile. Hemodynamically stable. White count 20.6. Hemoglobin 13.2. Sodium 137. Potassium 4.3. Chloride 108. Bicarb 20. Anion gap 9. BUN 25. Creatinine 0.75. Glucose 210. He's been resumed on his Levemir. NovoLog with sliding scale. Changed to 0.9 normal saline at 100 ML's per hour. Review of Systems REVIEW OF SYSTEMS: CONSTITUTIONAL: Denies any recent significant weight loss or weight gain. EYES: Denies change in vision. EARS, NOSE, MOUTH, THROAT: Denies headaches, denies sore throat. CARDIOVASCULAR: Denies chest pain, palpitations or syncopal episodes. RESPIRATORY: Denies shortness of breath, cough, congestion or hemoptysis. GASTROINTESTINAL: Abdomen pain, nausea, weakness GENITOURINARY: Denies hematuria, denies infections. MUSKULOSKELETAL: Denies pain, denies swelling. INTEGUMENTARY: Denies rash, denies eczema. NEUROLOGICAL: Denies recent memory loss, no recent seizure activity. PSYCHIATRIC: Denies anxiety, denies depression. HEMATOLOGIC/LYMPHATIC: Denies anemia, denies enlarged lymph nodes. Past Medical History Past Medical History: Asthma, Diabetes Mellitus, Neurologic Disorder, Skin D isorder Additional Past Medical History / Comment(s): IDDM type I, neuropathy bilateral feet, DKA, eczema. History of Any Multi-Drug Resistant Organisms: None Reported Past Surgical History: Adenoidectomy Additional Past Surgical History / Comment(s): 2002 Past Anesthesia/Blood Transfusion Reactions: No Reported Reaction Past Psychological History: Anxiety, Depression Additional Psychological History / Comment(s): Pt has had multiple psychiatric admissions for depression/suicide attempts. Pt states his depression is stable and has not had any thoughts/plans of suicide recently. Pt resides with a roomate Smoking Status: Vaper Past Alcohol Use History: Occasional Additional Past Alcohol Use History / Comment(s): Pt states he started smoking as a teen and quit "a long time ago now". Pt started vaping off and on in 2009. Pt states he drinks alcohol occasionally. Past Drug Use History: Marijuana Additional Drug Use History / Comment(s): Occasional - Past Family History Mother Family Medical History: CVA/TIA Additional Family Medical History / Comment(s): TIA Father Family Medical History: Hyperlipidemia, Hypertension Additional Family Medical History / Comment(s): . Medications and Allergies Home Medications Medication Instructions Recorded Confirmed Type Insulin Detemir (Levemir) [Levemir] 20 unit SQ DAILY 08/27/20 12/19/21 History INSULIN ASPART (NovoLOG) [NovoLOG 10 unit SQ AC-TID 06/29/21 12/19/21 History (formulary)] Ibuprofen [Motrin] 800 mg PO QID PRN 06/29/21 12/19/21 History Sertraline [Zoloft] 50 mg PO DAILY 11/12/21 12/19/21 History traZODone HCL 100 mg PO HS 11/27/21 12/19/21 History Metoclopramide [Reglan] 10 mg PO TID PRN #15 tab 12/03/21 12/19/21 Rx Ergocalciferol (Vitamin D2) 1,250 mcg PO Q30D 12/19/21 12/19/21 History [Drisdol (50,000 Iu)] Gabapentin 600 mg PO TID 12/19/21 12/19/21 History Allergies Allergy/AdvReac Type Severity Reaction Status Date / Time No Known Allergies Allergy Verified 12/19/21 16:20 Physical Exam Vitals: Vital Signs Temp Pulse Resp BP Pulse Ox 12/20/21 08:00 98.2 F 85 11 L 117/92 97 12/20/21 07:00 91 29 H 114/81 96 12/20/21 06:30 14 114/81 97 12/20/21 06:00 85 10 L 114/77 96 12/20/21 05:30 87 12 114/77 97 12/20/21 05:00 84 13 99/69 97 12/20/21 04:30 85 15 99/69 96 12/20/21 04:00 96.6 F L 92 57 H 99/72 96 12/20/21 03:30 18 99/72 96 12/20/21 03:00 89 13 96/65 97 12/20/21 02:30 98 16 96/65 96 12/20/21 02:00 98 12 108/81 96 12/20/21 01:30 94 15 108/81 97 12/20/21 01:00 100 12 121/75 97 12/20/21 00:30 108 H 34 H 121/75 96 12/20/21 00:00 97 F L 43 H 124/80 95 12/19/21 23:44 105 H 44 H 124/80 96 12/19/21 23:30 101 H 24 124/80 95 12/19/21 23:00 105 H 34 H 102/65 95 12/19/21 22:30 108 H 32 H 102/65 96 12/19/21 22:00 120 H 16 125/80 94 L 12/19/21 21:30 111 H 13 125/80 96 12/19/21 21:22 17 95 12/19/21 20:00 97.9 F 125 H 13 119/76 96 12/19/21 19:28 130 H 20 119/76 98 12/19/21 18:30 128 H 20 112/69 100 12/19/21 17:46 130 H 18 123/73 100 12/19/21 16:01 134 H 20 126/78 12/19/21 15:50 133 H 24 115/67 96 12/19/21 14:18 97.5 F L 140 H 22 119/74 98 Intake and Output 12/19/21 12/20/21 12/20/21 22:59 06:59 14:59 Intake Total 617.185 3515.084 100 Output Total 750 300 0 Balance -273.461 946.084 100 Intake: IV 450 1200 100 D5-0.45% NaCl with KCl 450 1200 100 20Meq/l 1,000 ml @ 150 mls/hr IV .[id number] [facility] Rx# :[id number] Intake, IV Titration 26.539 46.084 Amount Insulin Regular 100 unit 26.539 46.084 In Sodium Chloride 0.9% 100 ml @ 0.1 UNITS/KG/HR 5.956 mls/hr IV .[id number] [facility] Rx#:[id number] Output: Urine 750 0 0 Emesis 300 Other: Voiding Method Urinal Urinal Urinal # Voids 1 Weight 60 kg 60.2 kg GENERAL EXAM: Alert, week, 26-year-old male, on room air, comfortable in no apparent distress. HEAD: Normocephalic. EYES: Normal reaction of pupils, equal size. NOSE: Clear with pink turbinates. THROAT: No erythema or exudates. NECK: No masses, no JVD. CHEST: No chest wall deformity. LUNGS: Equal air entry with no crackles, wheeze, rhonchi or dullness. CVS: S1 and S2 normal with no audible murmur, regular rhythm. ABDOMEN: With some abdominal discomfort. No hepatosplenomegaly, normal bowel sounds, no guarding or rigidity. SPINE: No scoliosis or deformity SKIN: No rashes CENTRAL NERVOUS SYSTEM: No focal deficits, tone is normal in all 4 extremities. EXTREMITIES: There is no peripheral edema. No clubbing, no cyanosis. Peripheral pulses are intact. Results - Laboratory Findings CBC and BMP: 12/20/21 05:50 12/20/21 05:50 Abnormal lab findings: Abnormal Labs 12/19/21 12/19/21 12/19/21 14:43 14:43 14:43 WBC 31.2 H RBC MCV 101.7 H D Neutrophils # (Manual) 27.40 H Basophils # (Manual) 0.31 H VBG pH VBG pCO2 VBG HCO3 Potassium 5.7 H Chloride 97 L Carbon Dioxide 5 L* BUN 32 H Creatinine 1.48 H Glucose 670 H* POC Glucose (mg/dL) Plasma Lactic Acid Len 3.9 H* Phosphorus AST Total Protein Albumin 5.4 H Urine Protein Urine Glucose (UA) Urine Ketones 12/19/21 12/19/21 12/19/21 14:43 14:43 15:29 WBC RBC MCV Neutrophils # (Manual) Basophils # (Manual) VBG pH 7.13 L* VBG pCO2 17 L* VBG HCO3 5 L* Potassium Chloride Carbon Dioxide BUN Creatinine Glucose POC Glucose (mg/dL) 593 H 536 H Plasma Lactic Acid Len Phosphorus AST Total Protein Albumin Urine Protein Urine Glucose (UA) Urine Ketones 12/19/21 12/19/21 12/19/21 15:58 16:22 16:22 WBC RBC MCV Neutrophils # (Manual) Basophils # (Manual) VBG pH VBG pCO2 VBG HCO3 Potassium Chloride 108 H Carbon Dioxide 6 L* BUN 30 H Creatinine 1.26 H Glucose 585 H* POC Glucose (mg/dL) Plasma Lactic Acid Len Phosphorus 6.7 H AST Total Protein Albumin Urine Protein Trace H Urine Glucose (UA) 4+ H Urine Ketones 4+ H 12/19/21 12/19/21 12/19/21 16:59 18:03 18:59 WBC RBC MCV Neutrophils # (Manual) Basophils # (Manual) VBG pH VBG pCO2 VBG HCO3 Potassium Chloride Carbon Dioxide BUN Creatinine Glucose POC Glucose (mg/dL) 445 H 391 H 288 H Plasma Lactic Acid Len Phosphorus AST Total Protein Albumin Urine Protein Urine Glucose (UA) Urine Ketones 12/19/21 12/19/21 12/19/21 19:41 20:00 21:24 WBC RBC MCV Neutrophils # (Manual) Basophils # (Manual) VBG pH VBG pCO2 VBG HCO3 Potassium Chloride 114 H Carbon Dioxide 13 L BUN 30 H Creatinine Glucose 275 H POC Glucose (mg/dL) 266 H 214 H Plasma Lactic Acid Len Phosphorus AST Total Protein Albumin Urine Protein Urine Glucose (UA) Urine Ketones 12/19/21 12/19/21 12/20/21 22:00 23:15 00:00 WBC RBC MCV Neutrophils # (Manual) Basophils # (Manual) VBG pH VBG pCO2 VBG HCO3 Potassium Chloride Carbon Dioxide BUN Creatinine Glucose POC Glucose (mg/dL) 226 H 172 H 181 H Plasma Lactic Acid Len Phosphorus AST Total Protein Albumin Urine Protein Urine Glucose (UA) Urine Ketones 12/20/21 12/20/21 12/20/21 01:02 02:19 03:25 WBC RBC MCV Neutrophils # (Manual) Basophils # (Manual) VBG pH VBG pCO2 VBG HCO3 Potassium Chloride Carbon Dioxide BUN Creatinine Glucose POC Glucose (mg/dL) 139 H 131 H 138 H Plasma Lactic Acid Len Phosphorus AST Total Protein Albumin Urine Protein Urine Glucose (UA) Urine Ketones 12/20/21 12/20/21 12/20/21 04:20 05:01 05:50 WBC 20.6 H RBC 4.19 L MCV Neutrophils # (Manual) Basophils # (Manual) VBG pH VBG pCO2 VBG HCO3 Potassium Chloride Carbon Dioxide BUN Creatinine Glucose POC Glucose (mg/dL) 149 H 173 H Plasma Lactic Acid Len Phosphorus AST Total Protein Albumin Urine Protein Urine Glucose (UA) Urine Ketones 12/20/21 12/20/21 12/20/21 05:50 06:11 07:10 WBC RBC MCV Neutrophils # (Manual) Basophils # (Manual) VBG pH VBG pCO2 VBG HCO3 Potassium Chloride 108 H Carbon Dioxide 20 L BUN 25 H Creatinine Glucose 210 H POC Glucose (mg/dL) 187 H 218 H Plasma Lactic Acid Len Phosphorus AST 14 L Total Protein 6.0 L Albumin Urine Protein Urine Glucose (UA) Urine Ketones 12/20/21 07:58 WBC RBC MCV Neutrophils # (Manual) Basophils # (Manual) VBG pH VBG pCO2 VBG HCO3 Potassium Chloride Carbon Dioxide BUN Creatinine Glucose POC Glucose (mg/dL) 204 H Plasma Lactic Acid Len Phosphorus AST Total Protein Albumin Urine Protein Urine Glucose (UA) Urine Ketones Assessment and Plan Assessment: 1 Acute diabetic ketoacidosis, recovered 2 Acute leukocytosis secondary to above 3 Anion gap metabolic acidosis related to DKA and lactic acidosis, recovered 4 Type 1 diabetes mellitus, with diabetic neuropathy 5 Multiple admissions for diabetic ketoacidosis 6 Previous history of drug overdose and suicidal attempts 7 History of major depression and generalized anxiety 8 Medical noncompliance 9 Chronic insomnia 10 History of mild intermittent bronchial asthma, inactive 11 History of marijuana use Plan: The patient was seen and evaluated Anion gap has closed IV fluids changed 0.9 normal saline at 100 ML's per hour Initiated back on Levemir, NovoLog sliding scale Could be transferred out of the ICU today We will continue to follow and make further recommendations based on his clinical status I have personally seen and examined the patient, performed the documentation and the assessment and plan as written. Number of minutes spent on the visit: 20.
[2021-12-20 12:18] LABS: Glucose,Whole Blood 166 mg/dL (70-110)
[2021-12-20 14:21] LABS: African American GFR (CKD) >90 (>60 ml/min/1.73 sqM); Anion Gap 5 mmol/L; Blood Urea Nitrogen 20 mg/dL (9-20); Carbon Dioxide 25 mmol/L (22-30); Chloride 103 mmol/L (98-107); Non-African American GFR(CKD) >90 (>60 ml/min/1.73 sqM); Phosphorus 1.9 mg/dL (2.5-4.5); Potassium 4.1 mmol/L (3.5-5.1); Sodium 133 mmol/L (137-145)
[2021-12-20] MEDS: GABAPENTIN 300 MG CAP PO SCH ×2 (16:17→21:39)
[2021-12-20 17:27] LABS: Glucose,Whole Blood 54 mg/dL (70-110)
[2021-12-20 17:52] LABS: Glucose,Whole Blood 107 mg/dL (70-110)
[2021-12-20 20:54] LABS: Glucose,Whole Blood 178 mg/dL (70-110)
[2021-12-20] MEDS ORDERED: traZODone HCL 100 MG TAB PO SCH (21:00)
[2021-12-21 01:53] LABS: Glucose,Whole Blood 124 mg/dL (70-110)
[2021-12-21] MEDS: INSULIN ASPART (NovoLOG) 100 UNIT/ML VIAL SQ SCH ×3 (02:22→08:44)
[2021-12-21 07:18] LABS: Glucose,Whole Blood 177 mg/dL (70-110)
[2021-12-21 07:28] VITALS: BP 108/71; PULSE 87; RESP 19; TEMP 97.9
[2021-12-21] MEDS: SODIUM CHLORIDE 0.9% 1,000 ML IV SCH ×2 (07:53→08:45)
[2021-12-21] MEDS: INSULIN DETEMIR (LEVEMIR) 100 UNIT/ML SYR SQ SCH (08:43)
[2021-12-21] MEDS: GABAPENTIN 300 MG CAP PO SCH (08:44)
[2021-12-21] MEDS ORDERED: INSULIN DETEMIR (LEVEMIR) 100 UNIT/ML SYR SQ SCH (09:00)
[2021-12-21] MEDS ORDERED: SERTRALINE 50 MG TAB PO SCH (09:00)
--- NOTE | 2021-12-21 12:08 | HP ---
HISTORY AND PHYSICAL CHIEF COMPLAINT: DKA. HISTORY OF PRESENT ILLNESS: This is another visit for this young man who comes in frequently in DKA when he does not take his insulin. When he was in the emergency room his pH was 7.1 with bicarb of 5. Blood sugar was over 600 with a gap of 38. White count was . REVIEW OF SYSTEMS: He has no complaints except nausea and vomiting. He is lethargic. He denies focal neurologic deficits, change in vision, chest pain, etc. Past medical history, family history, and personal and social histories are all otherwise unremarkable. PHYSICAL EXAMINATION: Blood pressure is 135/92 with a pulse of 110, respirations of 38. He is afebrile. In general he appeared to be dehydrated, pale, weak, lethargic and poorly nourished. Head, ears, eyes, nose, mouth and throat were normal except for dry mucous membranes. Neck was supple. Chest was clear. Cardiac exam demonstrated tachycardia. The abdomen was flat, soft and nontender. Bowel sounds were present. Extremities were normal. Neurologically he is lethargic . He is admitted to the hospital with diagnoses: 1. Diabetic ketoacidosis. 2. Uncontrolled type 1 insulin-dependent diabetes mellitus. 3. Depression. PLAN: 1. Bedrest. 2. DKA protocol. MMSHANEL / TRAMN: [id number] /
--- NOTE | 2021-12-21 14:00 | PN ---
PROGRESS NOTE DATE OF SERVICE: 12/20/2021 CHIEF COMPLAINT: DKA. HISTORY OF PRESENT ILLNESS: This gentleman is better. He is still nauseated and vomiting. His gap has closed and blood sugar is coming down. He was taken off DKA protocol and is back on his usual insulin management and he will be transferred to a regular floor. PHYSICAL EXAMINATION: Vital signs are normal. Chest is clear. Cardiac exam is normal. Abdomen is soft and flat. IMPRESSION: 1. Diabetic ketoacidosis. 2. Uncontrolled type 1 insulin-dependent diabetes mellitus. 3. Depression. PLAN: Move out of ICU. MMODL / IJN: [id number] /
--- NOTE | 2021-12-21 15:15 | DS ---
DISCHARGE SUMMARY CHIEF COMPLAINT: DKA. HISTORY OF PRESENT ILLNESS AND PHYSICAL EXAMINATION: Details of this man's history and physical can be found in the initial workup. LABORATORY STUDIES: While he is in the hospital he had laboratory studies, details of which can be found in the laboratory section of his chart. COURSE IN THE HOSPITAL: After admission he was placed on bedrest, started on intravenous fluids and DKA protocol. He was doing well. He was moved out of the unit and was going to be discharged when he signed himself out AGAINST MEDICAL ADVICE. FINAL DIAGNOSIS: 1. Diabetic ketoacidosis. 2. Poorly controlled insulin-dependent type 1 diabetes mellitus. 3. Depression. OPERATIONS: None. CONSULTATIONS: None. He is improved. MMODL / IJN: [id number] /
== END 2021-12-21 10:15 | disposition left against medical advice (07) | DRG 639 ==
LOC: EC 14:15 → 2SICU 15:34 → 5NMEDONC 12-20 10:13
PROVIDERS: ADMIT Family Medicine; ATTEND Family Medicine
DX: E11.10 Type 2 diabetes mellitus with ketoacidosis without coma (principal); E11.43 Type 2 diabetes mellitus with diabetic autonomic (poly)neuropathy; E11.40 Type 2 diabetes mellitus with diabetic neuropathy, unspecified; Z53.29 Procedure and treatment not carried out because of patient's decision for other reasons; Z79.4 Long term (current) use of insulin; K31.84 Gastroparesis; D72.829 Elevated white blood cell count, unspecified; L30.9 Dermatitis, unspecified; J45.20 Mild intermittent asthma, uncomplicated; F51.04 Psychophysiologic insomnia; F41.1 Generalized anxiety disorder; F32.A Depression, unspecified; Z91.19 Patient's noncompliance with other medical treatment and regimen; Z79.899 Other long term (current) drug therapy; Z82.3 Family history of stroke; Z82.49 Family history of ischemic heart disease and other diseases of the circulatory system
CPT/HCPCS: 36415; 80051; 80053; 81003; 82150; 82565; 82803; 82947; 83605; 83690; 83735; 84100; 84520; 85025; 85027; 96361; 96365; 96366; 96375; 99285

== ENCOUNTER 2021-12-22 15:31 | Observation (INO) | payer OTHER ==
[2021-12-22 15:42] LABS: Glucose,Whole Blood 311 mg/dL (70-110)
[2021-12-22] MEDS ORDERED: SODIUM CHLORIDE 0.9% 1,000 ML IV STA (15:49)
[2021-12-22] MEDS ORDERED: INSULIN REGULAR 100 UNIT/ML VIAL (IV) IV ONE (15:58)
[2021-12-22] MEDS ORDERED: PROCHLORPERAZINE INJ 10 MG/2 ML VIAL IVP STA (15:59)
[2021-12-22 16:09] LABS: Basophils % (A) 1 %; Eosinophils # (A) 0.1 k/uL (0-0.7); Eosinophils % (A) 1 %; HCT 42.6 % (39.0-53.0); HGB 14.3 gm/dL (13.0-17.5); Lymphocytes % (A) 21 %; MCH 31.1 pg (25.0-35.0); MCHC 33.6 g/dL (31.0-37.0); MCV 92.8 fL (80.0-100.0); Mean Platelet Volume 6.9; Monocytes # (A) 0.2 k/uL (0-1.0); Monocytes % (A) 4 %; Neutrophils # (A) 3.3 k/uL (1.3-7.7); Neutrophils % (A) 71 %; Platelet Count 253 k/uL (150-450); RBC 4.59 m/uL (4.30-5.90); RDW 12.5 % (11.5-15.5); WBC 4.6 k/uL (3.8-10.6)
[2021-12-22 16:18] LABS: Appearance,Urine Clear (Clear); Bilirubin,Urine Negative (Negative); Blood,Urine Negative (Negative); Color,Urine Colorless; Glucose,Urine (UA) 4+ (Negative); Leukocyte Esterase,Urine Negative (Negative); Nitrite,Urine Negative (Negative); PH, Urine 8.5 (5.0-8.0); Protein,Urine Negative (Negative); Specific Gravity,Urine 1.014 (1.001-1.035); Urobilinogen,Urine <2.0 mg/dL (<2.0)
--- NOTE | 2021-12-22 16:24 | ED ---
General Adult HPI - General Chief complaint: Nausea/Vomiting/Diarrhea Stated complaint: abd pain Source: patient, EMS, RN notes reviewed Mode of arrival: EMS Limitations: no limitations - History of Present Illness Initial comments: Patient is a 26-year-old male well known to the emergency department who presents with complaints of abdominal pain nausea and vomiting. He was in the hospital yesterday and left AGAINST MEDICAL ADVICE after his abdominal pain, nausea and vomiting had improved According to reports he was planning on being discharged later that day after psychiatric evaluation in regards to his chronic depression. Today he called 911 in regards to severe abdominal pain nausea and vomiting. EMS reported that his blood sugar was 413 and he received a 500 mL normal saline bolus along with 4 mg of Zofran for nausea. Unfortunately he continues to have significant abdominal pain and nausea. He is not utilizing an insulin pump or continuous glucose monitor. He denies any chest pain, shortness of breath, weakness, fevers or chills. In addition to his type 1 diabetes he has past medical history significant for diabetic neuropathy, eczema and asthma. - Related Data Home Medications Medication Instructions Recorded Confirmed Insulin Detemir (Levemir) [Levemir] 20 unit SQ DAILY 08/27/20 12/22/21 INSULIN ASPART (NovoLOG) [NovoLOG 10 unit SQ AC-TID 06/29/21 12/22/21 (formulary)] Ibuprofen [Motrin] 800 mg PO QID PRN 06/29/21 12/22/21 Sertraline [Zoloft] 50 mg PO DAILY 11/12/21 12/22/21 traZODone HCL 100 mg PO HS 11/27/21 12/22/21 Ergocalciferol (Vitamin D2) 1,250 mcg PO Q30D 12/19/21 12/22/21 [Drisdol (50,000 Iu)] Gabapentin 600 mg PO TID 12/19/21 12/22/21 Previous Rx's Medication Instructions Recorded Metoclopramide [Reglan] 10 mg PO TID PRN #15 tab 12/03/21 Allergies Allergy/AdvReac Type Severity Reaction Status Date / Time No Known Allergies Allergy Verified 12/22/21 15:43 Review of Systems ROS Statement: Those systems with pertinent positive or pertinent negative responses have been documented in the HPI. ROS Other: All systems not noted in ROS Statement are negative. Past Medical History Past Medical History: Asthma, Diabetes Mellitus, Neurologic Disorder, Skin Disorder Additional Past Medical History / Comment(s): IDDM type I, neuropathy bilateral feet, DKA, eczema. History of Any Multi-Drug Resistant Organisms: None Reported Past Surgical History: Adenoidectomy Additional Past Surgical History / Comment(s): 2002 Past Anesthesia/Blood Transfusion Reactions: No Reported Reaction Past Psychological History: Anxiety, Depression Smoking Status: Vaper Past Alcohol Use History: Occasional Past Drug Use History: Marijuana - Past Family History Mother Family Medical History: CVA/TIA Additional Family Medical History / Comment(s): TIA Father Family Medical History: Hyperlipidemia, Hypertension Additional Family Medical History / Comment(s): . General Exam Limitations: no limitations General appearance: alert Head exam: Present: atraumatic, normocephalic, normal inspection Eye exam: Present: normal appearance, PERRL, EOMI. Absent: scleral icterus, conjunctival injection, periorbital swelling Neck exam: Present: normal inspection Respiratory exam: Present: normal lung sounds bilaterally. Absent: respiratory distress, wheezes, rales, rhonchi, stridor Cardiovascular Exam: Present: normal rhythm, tachycardia, normal heart sounds. Absent: systolic murmur, diastolic murmur GI/Abdominal exam: Present: soft, tenderness Extremities exam: Present: normal inspection, full ROM, normal capillary refill. Absent: tenderness, pedal edema, joint swelling, calf tenderness Back exam: Present: normal inspection Neurological exam: Present: alert, oriented X3, CN II-XII intact Psychiatric exam: Present: agitated Skin exam: Present: warm, dry, intact, normal color. Absent: rash Course Vital Signs 12/22/21 12/22/21 12/22/21 15:35 16:56 18:05 Temperature 97.5 F L Pulse Rate 78 93 101 H Respiratory 18 22 18 Rate Blood Pressure 167/100 134/94 93/60 O2 Sat by Pulse 100 100 99 Oximetry Medical Decision Making - Medical Decision Making Probability for recurrence of DKA. Actively vomiting with severe abdominal pain despite IV fluids and Zofran by EMS. Will give Compazine and check blood sugar treating accordingly. Will check CMP CBC urinalysis and serum acetone level. Further plan pending results. Chemistry panel shows no elevation of anion gap or reduction of bicarb. Glucose elevated in 311 will give insulin. Serum acetone positive, urinalysis plus for glucose +2 ketones. Needs admission for DKA despite normal anion gap and bicarb. Will continue to give antiemetics while correcting glucose levels along with IV fluids. Dr. Valenzuela patient's primary care provider workup notified regarding current laboratory results and his return to the emergency room. He is accepting admission for DKA. Case discussed with Dr. Villela. - Lab Data Result diagrams: 12/22/21 16:01 12/22/21 16:01 Lab Results 12/22/21 12/22/21 12/22/21 Range/Units 15:40 16:01 16:01 WBC 4.6 (3.8-10.6) k/uL RBC 4.59 (4.30-5.90) m/uL Hgb 14.3 (13.0-17.5) gm/dL Hct 42.6 (39.0-53.0) % MCV 92.8 (80.0-100.0) fL MCH 31.1 (25.0-35.0) pg MCHC 33.6 (31.0-37.0) g/dL RDW 12.5 (11.5-15.5) % Plt Count 253 (150-450) k/uL MPV 6.9 Neutrophils % 71 % Lymphocytes % 21 % Monocytes % 4 % Eosinophils % 1 % Basophils % 1 % Neutrophils # 3.3 (1.3-7.7) k/uL Lymphocytes # 1.0 (1.0-4.8) k/uL Monocytes # 0.2 (0-1.0) k/uL Eosinophils # 0.1 (0-0.7) k/uL Basophils # 0.0 (0-0.2) k/uL Sodium (137-145) mmol/L Potassium (3.5-5.1) mmol/L Chloride (98-107) mmol/L Carbon Dioxide (22-30) mmol/L Anion Gap mmol/L BUN (9-20) mg/dL Creatinine (0.66-1.25) mg/dL Est GFR (CKD-EPI)AfAm (>60 ml/min/1.73 sqM) Est GFR (CKD-EPI)NonAf (>60 ml/min/1.73 sqM) Glucose (74-99) mg/dL POC Glucose (mg/dL) 311 H (70-110) mg/dL POC Glu Elevator Examiner And Adjuster ID Tristin Centeno Plasma Lactic Acid Len (0.7-2.0) mmol/L Calcium (8.4-10.2) mg/dL Total Bilirubin (0.2-1.3) mg/dL AST (17-59) U/L ALT (4-49) U/L Alkaline Phosphatase (38-126) U/L Total Protein (6.3-8.2) g/dL Albumin (3.5-5.0) g/dL Urine Color Colorless Urine Appearance Clear (Clear) Urine pH 8.5 H (5.0-8.0) Ur Specific [place] 1.014 (1.001-1.035) Urine Protein Negative (Negative) Urine Glucose (UA) 4+ H (Negative) Urine Ketones 2+ H (Negative) Urine Blood Negative (Negative) Urine Nitrite Negative (Negative) Urine Bilirubin Negative (Negative) Urine Urobilinogen <2.0 (<2.0) mg/dL Ur Leukocyte Esterase Negative (Negative) Acetone, Qual (Negative) 12/22/21 12/22/21 12/22/21 Range/Units 16:01 16:01 16:55 WBC (3.8-10.6) k/uL RBC (4.30-5.90) m/uL Hgb (13.0-17.5) gm/dL Hct (39.0-53.0) % MCV (80.0-100.0) fL MCH (25.0-35.0) pg MCHC (31.0-37.0) g/dL RDW (11.5-15.5) % Plt Count (150-450) k/uL MPV Neutrophils % % Lymphocytes % % Monocytes % % Eosinophils % % Basophils % % Neutrophils # (1.3-7.7) k/uL Lymphocytes # (1.0-4.8) k/uL Monocytes # (0-1.0) k/uL Eosinophils # (0-0.7) k/uL Basophils # (0-0.2) k/uL Sodium 136 L (137-145) mmol/L Potassium 3.8 (3.5-5.1) mmol/L Chloride 101 (98-107) mmol/L Carbon Dioxide 23 (22-30) mmol/L Anion Gap 12 mmol/L BUN 10 (9-20) mg/dL Creatinine 0.49 L (0.66-1.25) mg/dL Est GFR (CKD-EPI)AfAm >90 (>60 ml/min/1.73 sqM) Est GFR (CKD-EPI)NonAf >90 (>60 ml/min/1.73 sqM) Glucose 322 H (74-99) mg/dL POC Glucose (mg/dL) 269 H (70-110) mg/dL POC Glu Elevator Examiner And Adjuster ID Harrison Eran Plasma Lactic Acid Len 1.9 (0.7-2.0) mmol/L Calcium 9.0 (8.4-10.2) mg/dL Total Bilirubin 1.2 (0.2-1.3) mg/dL AST 26 (17-59) U/L ALT 23 (4-49) U/L Alkaline Phosphatase 82 (38-126) U/L Total Protein 6.8 (6.3-8.2) g/dL Albumin 4.4 (3.5-5.0) g/dL Urine Color Urine Appearance (Clear) Urine pH (5.0-8.0) Ur Specific [place] (1.001-1.035) Urine Protein (Negative) Urine Glucose (UA) (Negative) Urine Ketones (Negative) Urine Blood (Negative) Urine Nitrite (Negative) Urine Bilirubin (Negative) Urine Urobilinogen (<2.0) mg/dL Ur Leukocyte Esterase (Negative) Acetone, Qual Positive (Negative) 12/22/21 Range/Units 18:04 WBC (3.8-10.6) k/uL RBC (4.30-5.90) m/uL Hgb (13.0-17.5) gm/dL Hct (39.0-53.0) % MCV (80.0-100.0) fL MCH (25.0-35.0) pg MCHC (31.0-37.0) g/dL RDW (11.5-15.5) % Plt Count (150-450) k/uL MPV Neutrophils % % Lymphocytes % % Monocytes % % Eosinophils % % Basophils % % Neutrophils # (1.3-7.7) k/uL Lymphocytes # (1.0-4.8) k/uL Monocytes # (0-1.0) k/uL Eosinophils # (0-0.7) k/uL Basophils # (0-0.2) k/uL Sodium (137-145) mmol/L Potassium (3.5-5.1) mmol/L Chloride (98-107) mmol/L Carbon Dioxide (22-30) mmol/L Anion Gap mmol/L BUN (9-20) mg/dL Creatinine (0.66-1.25) mg/dL Est GFR (CKD-EPI)AfAm (>60 ml/min/1.73 sqM) Est GFR (CKD-EPI)NonAf (>60 ml/min/1.73 sqM) Glucose (74-99) mg/dL POC Glucose (mg/dL) 197 H (70-110) mg/dL POC Glu Elevator Examiner And Adjuster ID Eran Harrison Plasma Lactic Acid Len (0.7-2.0) mmol/L Calcium (8.4-10.2) mg/dL Total Bilirubin (0.2-1.3) mg/dL AST (17-59) U/L ALT (4-49) U/L Alkaline Phosphatase (38-126) U/L Total Protein (6.3-8.2) g/dL Albumin (3.5-5.0) g/dL Urine Color Urine Appearance (Clear) Urine pH (5.0-8.0) Ur Specific [place] (1.001-1.035) Urine Protein (Negative) Urine Glucose (UA) (Negative) Urine Ketones (Negative) Urine Blood (Negative) Urine Nitrite (Negative) Urine Bilirubin (Negative) Urine Urobilinogen (<2.0) mg/dL Ur Leukocyte Esterase (Negative) Acetone, Qual (Negative) - EKG Data EKG Comments: Unchanged from 11/27/21. Interpretation machine shows junctional rhythm. Interpretation by provider is sinus rhythm. Ventricular rate 75 bpm. NE interval 138 ms, QRS duration 104 ms, QT/QTC was 416/444 ms, PRT axis -79, 96, 75. Disposition Clinical Impression: DKA (diabetic ketoacidoses) Disposition: ADMITTED IP TO THIS [facility] Condition: Stable Referrals: Brown Valenzuela MD [Primary Care Provider] - 1-2 days
[2021-12-22 16:26] LABS: ALT 23 U/L (4-49); AST 26 U/L (17-59); African American GFR (CKD) >90 (>60 ml/min/1.73 sqM); Albumin 4.4 g/dL (3.5-5.0); Alkaline Phosphatase 82 U/L (38-126); Anion Gap 12 mmol/L; Blood Urea Nitrogen 10 mg/dL (9-20); Carbon Dioxide 23 mmol/L (22-30); Chloride 101 mmol/L (98-107); Glucose 322 mg/dL (74-99); Non-African American GFR(CKD) >90 (>60 ml/min/1.73 sqM); Potassium 3.8 mmol/L (3.5-5.1); Sodium 136 mmol/L (137-145); Total Bilirubin 1.2 mg/dL (0.2-1.3); Total Protein 6.8 g/dL (6.3-8.2)
[2021-12-22 16:29] LABS: Ketones,Urine 2+ (Negative)
[2021-12-22 16:57] LABS: Glucose,Whole Blood 269 mg/dL (70-110)
[2021-12-22 18:06] LABS: Glucose,Whole Blood 197 mg/dL (70-110)
[2021-12-22] MEDS ORDERED: NALOXONE 0.4 MG/ML 1 ML VIAL IV PRN (18:14)
[2021-12-22] MEDS ORDERED: SODIUM CHLORIDE 0.9% 1,000 ML IV SCH (18:15)
[2021-12-22] MEDS ORDERED: INSULIN REGULAR 100 UNIT in SODIUM CHLORIDE 0.9% 100 ML IV SCH (18:15)
[2021-12-22] MEDS ORDERED: D5-0.45% NACL WITH KCL 20MEQ/L 1,000 ML IV ONE (18:30)
[2021-12-22 18:55] LABS: Glucose,Whole Blood 185 mg/dL (70-110)
[2021-12-22 19:56] LABS: Glucose,Whole Blood 189 mg/dL (70-110)
[2021-12-22 20:39] LABS: African American GFR (CKD) >90 (>60 ml/min/1.73 sqM); Anion Gap 3 mmol/L; Blood Urea Nitrogen 12 mg/dL (9-20); Carbon Dioxide 32 mmol/L (22-30); Chloride 104 mmol/L (98-107); Glucose 175 mg/dL (74-99); Non-African American GFR(CKD) >90 (>60 ml/min/1.73 sqM); Phosphorus 3.1 mg/dL (2.5-4.5); Sodium 139 mmol/L (137-145)
[2021-12-22 21:02] LABS: Glucose,Whole Blood 105 mg/dL (70-110)
[2021-12-22] MEDS ORDERED: IBUPROFEN 800 MG TAB PO PRN (21:29)
[2021-12-22] MEDS ORDERED: METOCLOPRAMIDE 5 MG/ML 2 ML VIAL IVP PRN (21:30)
[2021-12-22] MEDS ORDERED: traZODone HCL 100 MG TAB PO SCH (21:30)
[2021-12-22] MEDS ORDERED: INSULIN DETEMIR (LEVEMIR) 100 UNIT/ML SYR SQ SCH (21:30)
[2021-12-22] MEDS ORDERED: ERGOCALCIFEROL 1,250 MCG (50,000 IU) CAPSULE PO SCH (21:30)
[2021-12-22] MEDS: GABAPENTIN 300 MG CAP PO SCH (21:51)
[2021-12-22] MEDS: SERTRALINE 50 MG TAB PO SCH (21:51)
[2021-12-22] MEDS: D5-0.45% NACL WITH KCL 20MEQ/L 1,000 ML IV SCH (23:04)
[2021-12-23 00:14] LABS: Glucose,Whole Blood 128 mg/dL (70-110)
[2021-12-23 02:02] LABS: Glucose,Whole Blood 85 mg/dL (70-110)
[2021-12-23] MEDS: INSULIN ASPART (NovoLOG) 100 UNIT/ML VIAL SQ SCH ×6 (02:19→13:20)
[2021-12-23 06:14] LABS: Glucose,Whole Blood 97 mg/dL (70-110)
[2021-12-23] MEDS: INSULIN DETEMIR (LEVEMIR) 100 UNIT/ML SYR SQ SCH ×2 (06:15→10:18)
[2021-12-23 07:17] LABS: Glucose,Whole Blood 100 mg/dL (70-110)
[2021-12-23 08:26] LABS: African American GFR (CKD) >90 (>60 ml/min/1.73 sqM); Anion Gap 4 mmol/L; Blood Urea Nitrogen 10 mg/dL (9-20); Carbon Dioxide 30 mmol/L (22-30); Chloride 102 mmol/L (98-107); Glucose 88 mg/dL (74-99); Non-African American GFR(CKD) >90 (>60 ml/min/1.73 sqM); Phosphorus 3.5 mg/dL (2.5-4.5); Potassium 4.1 mmol/L (3.5-5.1); Sodium 136 mmol/L (137-145)
[2021-12-23 09:38] LABS: Glucose,Whole Blood 160 mg/dL (70-110)
[2021-12-23] MEDS: GABAPENTIN 300 MG CAP PO SCH (09:48)
[2021-12-23] MEDS: SERTRALINE 50 MG TAB PO SCH (09:48)
[2021-12-23 11:59] LABS: Glucose,Whole Blood 141 mg/dL (70-110)
[2021-12-23 12:24] VITALS: BP 136/92; PULSE 87; RESP 16; TEMP 97.8
[2021-12-23 13:16] LABS: Glucose,Whole Blood 125 mg/dL (70-110)
[2021-12-23] MEDS: D5-0.45% NACL WITH KCL 20MEQ/L 1,000 ML IV SCH (13:19)
--- NOTE | 2021-12-26 01:43 | HP ---
HISTORY AND PHYSICAL CHIEF COMPLAINT: DKA. HISTORY OF PRESENT ILLNESS: This is another admission for this young man. He was going in and out of the hospital almost every 3 or 4 days, now with DKA. He was discharged and does not take his insulin. He has a history of depression. He has been in and out of both hospitals in [facility] lately. About a month ago, he was at [facility] and referred to an inpatient psychiatric program in [place] and was out several days. He comes back in this time again with DKA. REVIEW OF SYSTEMS: He is weak and he remains nauseated and he has vomiting. He denies any chest pain, abdominal pain, hematemesis, melena, fever, chills, etc. Past medical history, family history, and personal and social histories are all otherwise unremarkable, noncontributory, and unchanged from his discharge yesterday. PHYSICAL EXAMINATION: VITAL SIGNS: Blood pressure is 111/64 with a pulse of 115, respirations of 35, and he is afebrile. GENERAL: He is dehydrated. He is slightly lethargic. HEAD, EARS, EYES, NOSE, MOUTH AND THROAT: Normal except for his mucous membranes, which were dry. NECK: Veins not distended. CHEST: Clear. CARDIAC: Demonstrated sinus tachycardia. ABDOMEN: Soft, flat, nontender. Bowel sounds are present. EXTREMITIES: Normal. NEUROLOGICAL: He is intact. ASSESSMENT: He is admitted to the hospital with diagnoses: 1. Recurrent diabetic ketoacidosis. 2. Uncontrolled type 1 insulin-dependent diabetes mellitus. 3. Noncompliant individual. 4. Depression. PLAN: 1. Bed rest. 2. IV fluids. 3. DKA protocol. MMODL / IJN: [id number] /
--- NOTE | 2021-12-26 08:25 | DS ---
DISCHARGE SUMMARY He was in [address] CHIEF COMPLAINT: DKA. HISTORY OF PRESENT ILLNESS AND PHYSICAL EXAMINATION: Details of this man's history and physical can be found in the initial workup. LABORATORY STUDIES: While he was in the hospital, he had laboratory studies, details of which can be found in the laboratory section of his chart. COURSE IN THE HOSPITAL: After admission, he was placed on bedrest, started on intravenous fluids and he was started on DKA protocol. His gap closed. The following morning, he signed out AMA once again. FINAL DIAGNOSES: 1. Diabetic ketoacidosis. 2. Uncontrolled type 1 insulin-dependent diabetes mellitus. 3. Dehydration. 4. Diabetic peripheral neuropathy. 5. Depression. OPERATIONS: None. CONSULTATIONS: None. He is improved. He signed out AMA. GRACE / ALDEN: [id number] /
== END 2021-12-23 13:39 | disposition left against medical advice (07) ==
LOC: EC 15:31 → 3SCARD 18:36 → INTOOBSV 18:36 → 3SCARD 19:52 → UNDODISIN 12-23 13:39
PROVIDERS: ADMIT Family Medicine; ATTEND Family Medicine
DX: E10.10 Type 1 diabetes mellitus with ketoacidosis without coma (principal); E86.0 Dehydration; E10.42 Type 1 diabetes mellitus with diabetic polyneuropathy; L30.9 Dermatitis, unspecified; J45.909 Unspecified asthma, uncomplicated; F32.A Depression, unspecified; F41.9 Anxiety disorder, unspecified; F17.290 Nicotine dependence, other tobacco product, uncomplicated; Z79.4 Long term (current) use of insulin; Z79.899 Other long term (current) drug therapy; Z98.890 Other specified postprocedural states; Z91.19 Patient's noncompliance with other medical treatment and regimen; Z53.29 Procedure and treatment not carried out because of patient's decision for other reasons; Z82.3 Family history of stroke; Z82.49 Family history of ischemic heart disease and other diseases of the circulatory system; Z83.49 Family history of other endocrine, nutritional and metabolic diseases
CPT/HCPCS: 96366 ×2; 96361; 96365; 96375; 99285; 36415; 93005; 80051 ×2; 80053; 82565 ×2; 82009; 83605; 84100 ×2; 82947 ×2; 84520 ×2; 85025; 81003; G0378 ×2; J0780; 96376

== ENCOUNTER 2021-12-27 22:51 | Emergency (ER) | payer OTHER ==
[2021-12-28] MEDS ORDERED: SODIUM CHLORIDE 0.9% 1,000 ML IV STA (00:24)
--- NOTE | 2021-12-28 00:30 | ED ---
General Adult HPI - General Chief complaint: Neuro Symptoms/Deficit Stated complaint: neck/head pain, dizziness Time Seen by Provider: 12/27/21 23:47 Source: patient, RN notes reviewed Mode of arrival: ambulatory Limitations: no limitations - History of Present Illness Initial comments: 26-year-old male presents to the emergency department stating he is concerned that he is having mini strokes as he has pain at the base of the left side of his neck that he describes as sharp and burning, as well as pain located behind the left eye. States he has episodes of blurry vision and difficulty with speech clarity. Denies any symptoms at this time. When asked why he believes these are mini strokes at such a young age, he responds by saying he has been diagnosed diabetic for the past 8 years and does not control his sugars. Discussed the possibility of migraine headaches, but patient does not feel that this is likely as he does not have sensitivity to light or sound, nor does he have nausea and vomiting. Denies fever, chills, sore throat, cough, congestion, chest pain, difficulty breathing, abdominal pain, nausea, vomiting, diarrhea, or dysuria. - Related Data Home Medications Medication Instructions Recorded Confirmed Insulin Detemir (Levemir) [Levemir] 20 unit SQ DAILY 08/27/20 12/22/21 INSULIN ASPART (NovoLOG) [NovoLOG 10 unit SQ AC-TID 06/29/21 12/22/21 (formulary)] Ibuprofen [Motrin] 800 mg PO QID PRN 06/29/21 12/22/21 Sertraline [Zoloft] 50 mg PO DAILY 11/12/21 12/22/21 traZODone HCL 100 mg PO HS 11/27/21 12/22/21 Ergocalciferol (Vitamin D2) 1,250 mcg PO Q30D 12/19/21 12/22/21 [Drisdol (50,000 Iu)] Gabapentin 600 mg PO TID 12/19/21 12/22/21 Previous Rx's Medication Instructions Recorded Metoclopramide [Reglan] 10 mg PO TID PRN #15 tab 12/03/21 Allergies Allergy/AdvReac Type Severity Reaction Status Date / Time No Known Allergies Allergy Verified 12/27/21 23:23 Review of Systems ROS Statement: Those systems with pertinent positive or pertinent negative responses have been documented in the HPI. ROS Other: All systems not noted in ROS Statement are negative. Past Medical History Past Medical History: Asthma, Diabetes Mellitus, Neurologic Disorder, Skin Disorder Additional Past Medical History / Comment(s): IDDM type I, neuropathy bilateral feet, DKA, eczema. History of Any Multi-Drug Resistant Organisms: None Reported Past Surgical History: Adenoidectomy Additional Past Surgical History / Comment(s): 2002 Past Anesthesia/Blood Transfusion Reactions: No Reported Reaction Past Psychological History: Anxiety, Depression Smoking Status: Never smoker, Vaper Past Alcohol Use History: Occasional Past Drug Use History: Marijuana - Past Family History Mother Family Medical History: CVA/TIA Additional Family Medical History / Comment(s): TIA Father Family Medical History: Hyperlipidemia, Hypertension Additional Family Medical History / Comment(s): . General Exam Limitations: no limitations (Well-developed, well-nourished male in no acute distress. Initial temperature 98.3, pulse 98 respirations 20, blood pressure 113/80, pulse ox 100% on room air.) General appearance: alert, in no apparent distress Head exam: Present: atraumatic, normocephalic, normal inspection Eye exam: Present: normal appearance, PERRL, EOMI. Absent: scleral icterus, conjunctival injection, periorbital swelling ENT exam: Present: normal exam, normal oropharynx, mucous membranes moist Neck exam: Present: normal inspection, full ROM Respiratory exam: Present: normal lung sounds bilaterally. Absent: respiratory distress, wheezes, rales, rhonchi, stridor, chest wall tenderness Cardiovascular Exam: Present: regular rate, normal rhythm, normal heart sounds. Absent: systolic murmur, diastolic murmur, rubs, gallop, clicks GI/Abdominal exam: Present: soft, normal bowel sounds. Absent: distended, tenderness, guarding, rebound, rigid Back exam: Absent: paraspinal tenderness, vertebral tenderness Neurological exam: Present: alert, oriented X3, CN II-XII intact, normal gait Expanded Patient oriented to: Present: person, place, time Speech: Present: fluid speech Cranial nerves: EOM's Intact: Normal, Nystagmus: Normal Cerebellar function: Romberg: Normal Motor strength exam: RUE: 5, LUE: 5, RLE: 5, LLE: 5 Psychiatric exam: Present: normal affect, normal mood Skin exam: Present: warm, dry, intact, normal color. Absent: rash Course Vital Signs 12/27/21 12/28/21 23:19 02:27 Temperature 98.3 F 98.2 F Pulse Rate 98 87 Respiratory 20 18 Rate Blood Pressure 113/80 150/115 O2 Sat by Pulse 100 98 Oximetry Medical Decision Making - Medical Decision Making 26-year-old male with a history of type 1 diabetes presents to the emergency department for evaluation of concerns that he is having mini strokes. Upon exam, patient is well-appearing and in no acute distress. He is neurologically intact with no focal deficits. He is able to articulate clearly. He declined need for anything for pain. Given a liter of IV fluids. Discussed root of his concern which stems from poorly managed diabetes over the past several years. Laboratory studies were obtained with no significant findings. Patient is reassured by this. He is instructed to follow up with his PCP for a recheck. Strict return parameters were discussed in detail. Patient verbalizes understanding and agrees with this plan. Attending:Jaclyn. - Lab Data Result diagrams: 12/28/21 00:31 12/28/21 00:31 Lab Results 12/28/21 12/28/21 12/28/21 Range/Units 00:31 00:31 00:31 WBC 9.3 (3.8-10.6) k/uL RBC 4.66 (4.30-5.90) m/uL Hgb 14.3 (13.0-17.5) gm/dL Hct 43.7 (39.0-53.0) % MCV 93.6 (80.0-100.0) fL MCH 30.6 (25.0-35.0) pg MCHC 32.7 (31.0-37.0) g/dL RDW 13.0 (11.5-15.5) % Plt Count 340 (150-450) k/uL MPV 6.8 Neutrophils % 43 % Lymphocytes % 43 % Monocytes % 8 % Eosinophils % 3 % Basophils % 1 % Neutrophils # 4.0 (1.3-7.7) k/uL Lymphocytes # 4.0 (1.0-4.8) k/uL Monocytes # 0.7 (0-1.0) k/uL Eosinophils # 0.2 (0-0.7) k/uL Basophils # 0.1 (0-0.2) k/uL Sodium 136 L (137-145) mmol/L Potassium 3.7 (3.5-5.1) mmol/L Chloride 98 (98-107) mmol/L Carbon Dioxide 30 (22-30) mmol/L Anion Gap 8 mmol/L BUN 11 (9-20) mg/dL Creatinine 0.62 L (0.66-1.25) mg/dL Est GFR (CKD-EPI)AfAm >90 (>60 ml/min/1.73 sqM) Est GFR (CKD-EPI)NonAf >90 (>60 ml/min/1.73 sqM) Glucose 123 H (74-99) mg/dL Calcium 9.5 (8.4-10.2) mg/dL Total Bilirubin 0.3 (0.2-1.3) mg/dL AST 20 (17-59) U/L ALT 24 (4-49) U/L Alkaline Phosphatase 68 (38-126) U/L Total Protein 6.9 (6.3-8.2) g/dL Albumin 4.5 (3.5-5.0) g/dL Urine Color Colorless Urine Appearance Clear (Clear) Urine pH 8.0 (5.0-8.0) Ur Specific [place] 1.004 (1.001-1.035) Urine Protein Negative (Negative) Urine Glucose (UA) Negative (Negative) Urine Ketones Negative (Negative) Urine Blood Negative (Negative) Urine Nitrite Negative (Negative) Urine Bilirubin Negative (Negative) Urine Urobilinogen <2.0 (<2.0) mg/dL Ur Leukocyte Esterase Negative (Negative) Acetone, Qual Negative (Negative) - EKG Data EKG shows normal: sinus rhythm Rate: normal EKG Comments: EKG obtained for 00:35 shows sinus rhythm with right axis deviation. Ventricular rate 89, [place] interval 160, QRS duration 95, QT/QTC 364/411. Interpretation abnormal ECG. Disposition Clinical Impression: Headache Disposition: HOME SELF-CARE Condition: Stable Instructions (If sedation given, give patient instructions): Acute Headache (ED) Additional Instructions: Continue with lifestyle changes to improve overall health. Monitor your sugar carefully. Follow-up with your PCP for a recheck within the next 5 days. Return to the emergency department with any new, worsening, or concerning symptoms. Is patient prescribed a controlled substance at d/c from ED?: No Referrals: Brown Valenzuela MD [Primary Care Provider] - 1-2 days Time of Disposition: 02:26
[2021-12-28 00:38] LABS: Appearance,Urine Clear (Clear); Basophils # (A) 0.1 k/uL (0-0.2); Basophils % (A) 1 %; Bilirubin,Urine Negative (Negative); Blood,Urine Negative (Negative); Color,Urine Colorless; Eosinophils # (A) 0.2 k/uL (0-0.7); Eosinophils % (A) 3 %; Glucose,Urine (UA) Negative (Negative); HCT 43.7 % (39.0-53.0); HGB 14.3 gm/dL (13.0-17.5); Ketones,Urine Negative (Negative); Leukocyte Esterase,Urine Negative (Negative); Lymphocytes % (A) 43 %; MCH 30.6 pg (25.0-35.0); MCHC 32.7 g/dL (31.0-37.0); MCV 93.6 fL (80.0-100.0); Mean Platelet Volume 6.8; Monocytes # (A) 0.7 k/uL (0-1.0); Monocytes % (A) 8 %; Neutrophils % (A) 43 %; Nitrite,Urine Negative (Negative); Platelet Count 340 k/uL (150-450); Protein,Urine Negative (Negative); RBC 4.66 m/uL (4.30-5.90); Specific Gravity,Urine 1.004 (1.001-1.035); Urobilinogen,Urine <2.0 mg/dL (<2.0); WBC 9.3 k/uL (3.8-10.6)
[2021-12-28 01:09] LABS: ALT 24 U/L (4-49); AST 20 U/L (17-59); African American GFR (CKD) >90 (>60 ml/min/1.73 sqM); Albumin 4.5 g/dL (3.5-5.0); Alkaline Phosphatase 68 U/L (38-126); Anion Gap 8 mmol/L; Blood Urea Nitrogen 11 mg/dL (9-20); Calcium 9.5 mg/dL (8.4-10.2); Carbon Dioxide 30 mmol/L (22-30); Chloride 98 mmol/L (98-107); Glucose 123 mg/dL (74-99); Non-African American GFR(CKD) >90 (>60 ml/min/1.73 sqM); Potassium 3.7 mmol/L (3.5-5.1); Sodium 136 mmol/L (137-145); Total Bilirubin 0.3 mg/dL (0.2-1.3); Total Protein 6.9 g/dL (6.3-8.2)
[2021-12-28 02:28] VITALS: BP 150/115; PULSE 87; RESP 18; TEMP 98.2
== END 2021-12-28 02:30 | disposition home or self-care (01) ==
LOC: EC 22:51
DX: R51.9 Headache, unspecified (principal); R42 Dizziness and giddiness; M54.2 Cervicalgia; J45.909 Unspecified asthma, uncomplicated; E11.9 Type 2 diabetes mellitus without complications; F41.9 Anxiety disorder, unspecified; F32.A Depression, unspecified; F17.290 Nicotine dependence, other tobacco product, uncomplicated; F12.90 Cannabis use, unspecified, uncomplicated; Z79.51 Long term (current) use of inhaled steroids
CPT/HCPCS: 36415; 80053; 81003; 82009; 85025; 93005; 96360; 99284

== ENCOUNTER 2022-03-01 23:13 | Inpatient (IN) | payer OTHER ==
[2022-03-01] MEDS ORDERED: SODIUM CHLORIDE 0.9% 2,000 ML IV STA (23:18)
--- NOTE | 2022-03-01 23:33 | ED ---
General Adult HPI - General Chief complaint: Nausea/Vomiting/Diarrhea Stated complaint: Diabetic issues Time Seen by Provider: 03/01/22 23:15 Source: patient Mode of arrival: EMS Limitations: no limitations - History of Present Illness Initial comments: Dictation was produced using Sparkfly dictation software. please excuse any grammatical, word or spelling errors. Chief Complaint: 26-year-old male well-known to emergency by her for diabetic ketoacidosis presents to the ER for concerns of DKA History of Present Illness: 26-year-old male well-known to emergency department. He's had multiple visitations for emergency department and has been admitted multiple occasions for DKA. Patient was brought in by EMS from home. Apparentl y patient lives with his boss. Boss called EMS because patient was nauseated and lethargic. Patient has not been able to take his insulin recently. Patient is a poor historian at this time. Unable to obtain review of systems was secondary to mental status PHYSICAL EXAM: General Impression: Lethargic, kussmauls rafal respirations, smells of acetone HEENT: Normocephalic atraumatic, extra-ocular movements intact, pupils equal and reactive to light bilaterally, dry mucous membranes Cardiovascular: Heart regular rate and rhythm Chest: Able to complete full sentences, no retractions, no tachypnea Abdomen: abdomen soft, non-tender, non-distended, no organomegaly Musculoskeletal: Pulses present and equal in all extremities, no peripheral edema Motor: no focal deficits noted Neurological: CN II-XII grossly intact, no focal motor or sensory deficits noted Skin: Intact with no visualized rashes ED course: 26-year-old male well-known to emergency department for multiple admissions for DKA presents with clinical presentation consistent with DKA. Vital signs upon arrival shows heart rate of 132. Rest vital signs within acceptable limits. Laboratory evaluation obtained. Stress leukocytosis of 33.4. Venous blood gas shows patient's symptoms are 6 with pCO2 23 bicarb of 6. Severe acidosis with a bicarb of 6 and anion gap 36. Slightly elevated renal markers. Glucose was 672. Urinalysis positive for ketones. Acetone positive. Patient started on insulin drip. EKG interpretation: Ventricular rate 129, sinus tachycardia, NJ interval 137, QS 95, QTc 382.. No NJ prolongation, no QTC prolongation. Hyperacute T waves in precordial leads. Clinical presentation concerning for hyperkalemia. Patient reevaluated at 3:20 AM After several hours of IV fluids and on insulin drip. He is feeling and appearing much improved. He does not appear to be breathing with Kussmaul's respirations. Ambulatory without any significant issues. Patient be admitted for further care. Case discussed with Dr. Valenzuela who is willing to accept patient care. - Related Data Home Medications Medication Instructions Recorded Confirmed Insulin Detemir (Levemir) [Levemir] 20 unit SQ DAILY 08/27/20 01/11/22 INSULIN ASPART (NovoLOG) [NovoLOG 10 unit SQ AC-TID 06/29/21 01/11/22 (formulary)] Ergocalciferol (Vitamin D2) 1,250 mcg PO Q30D 12/19/21 01/11/22 [Drisdol (50,000 Iu)] Gabapentin 600 mg PO TID 12/19/21 01/11/22 Previous Rx's Medication Instructions Recorded Metoclopramide [Reglan] 10 mg PO TID PRN #15 tab 12/03/21 Allergies Allergy/AdvReac Type Severity Reaction Status Date / Time No Known Allergies Allergy Verified 03/01/22 23:14 Review of Systems ROS Statement: Those systems with pertinent positive or pertinent negative responses have been documented in the HPI. ROS Other: All systems not noted in ROS Statement are negative. Past Medical History Past Medical History: Asthma, Diabetes Mellitus, Neurologic Disorder, Skin Disorder Additional Past Medical History / Comment(s): IDDM type I, neuropathy bilateral feet, DKA, eczema. History of Any Multi-Drug Resistant Organisms: None Reported Past Surgical History: Adenoidectomy Additional Past Surgical History / Comment(s): 2002 Past Anesthesia/Blood Transfusion Reactions: No Reported Reaction Past Psychological History: Anxiety, Depression Smoking Status: Never smoker, Vaper Past Alcohol Use History: Occasional Past Drug Use History: Marijuana - Past Family History Mother Family Medical History: CVA/TIA Additional Family Medical History / Comment(s): TIA Father Family Medical History: Hyperlipidemia, Hypertension Additional Family Medical History / Comment(s): . General Exam Limitations: no limitations Course Vital Signs 03/01/22 03/01/22 03/02/22 23:14 23:17 01:11 Temperature 98 F Pulse Rate 132 H 124 H 129 H Respiratory 22 20 20 Rate Blood Pressure 113/66 123/75 118/69 O2 Sat by Pulse 99 98 98 Oximetry 03/02/22 03/02/22 01:50 03:16 Temperature Pulse Rate 130 H 130 H Respiratory 18 18 Rate Blood Pressure 119/63 119/67 O2 Sat by Pulse 98 99 Oximetry Medical Decision Making - Lab Data Result diagrams: 03/01/22 23:23 03/01/22 23:23 Lab Results 03/01/22 03/01/22 03/01/22 Range/Units 23:23 23:23 23:23 WBC 33.4 H (3.8-10.6) k/uL RBC 5.42 (4.30-5.90) m/uL Hgb 17.1 D (13.0-17.5) gm/dL Hct 52.3 (39.0-53.0) % MCV 96.5 (80.0-100.0) fL MCH 31.6 (25.0-35.0) pg MCHC 32.8 (31.0-37.0) g/dL RDW 12.4 (11.5-15.5) % Plt Count 407 (150-450) k/uL MPV 8.3 Neutrophils % 91 % Lymphocytes % 6 % Monocytes % 3 % Eosinophils % 0 % Basophils % 0 % Neutrophils # 30.3 H (1.3-7.7) k/uL Lymphocytes # 1.9 (1.0-4.8) k/uL Monocytes # 1.0 (0-1.0) k/uL Eosinophils # 0.0 (0-0.7) k/uL Basophils # 0.1 (0-0.2) k/uL Hypochromasia Slight VBG pH (7.31-7.41) VBG pCO2 (37-51) mmHg VBG HCO3 (24-28) mmol/L Sodium 141 (137-145) mmol/L Potassium 6.0 H (3.5-5.1) mmol/L Chloride 99 (98-107) mmol/L Carbon Dioxide 6 L* (22-30) mmol/L Anion Gap 36 mmol/L BUN 25 H (9-20) mg/dL Creatinine 1.38 H (0.66-1.25) mg/dL Est GFR (CKD-EPI)AfAm 82 (>60 ml/min/1.73 sqM) Est GFR (CKD-EPI)NonAf 71 (>60 ml/min/1.73 sqM) Glucose 672 H* (74-99) mg/dL POC Glucose (mg/dL) (70-110) mg/dL POC Glu Architectural Examiner ID Lactic Ac Sepsis Rflx Plasma Lactic Acid Len 4.7 H* (0.7-2.0) mmol/L Calcium 10.4 H (8.4-10.2) mg/dL Magnesium 2.3 (1.6-2.3) mg/dL Total Bilirubin 0.7 (0.2-1.3) mg/dL AST 22 (17-59) U/L ALT 22 (4-49) U/L Alkaline Phosphatase 128 H (38-126) U/L Total Protein 8.5 H (6.3-8.2) g/dL Albumin 5.7 H (3.5-5.0) g/dL Urine Color Urine Appearance (Clear) Urine pH (5.0-8.0) Ur Specific [place] (1.001-1.035) Urine Protein (Negative) Urine Glucose (UA) (Negative) Urine Ketones (Negative) Urine Blood (Negative) Urine Nitrite (Negative) Urine Bilirubin (Negative) Urine Urobilinogen (<2.0) mg/dL Ur Leukocyte Esterase (Negative) Urine RBC (0-5) /hpf Urine Mucus (None) /hpf Acetone, Qual Positive (Negative) 03/01/22 03/01/22 03/02/22 Range/Units 23:23 23:53 00:49 WBC (3.8-10.6) k/uL RBC (4.30-5.90) m/uL Hgb (13.0-17.5) gm/dL Hct (39.0-53.0) % MCV (80.0-100.0) fL MCH (25.0-35.0) pg MCHC (31.0-37.0) g/dL RDW (11.5-15.5) % Plt Count (150-450) k/uL MPV Neutrophils % % Lymphocytes % % Monocytes % % Eosinophils % % Basophils % % Neutrophils # (1.3-7.7) k/uL Lymphocytes # (1.0-4.8) k/uL Monocytes # (0-1.0) k/uL Eosinophils # (0-0.7) k/uL Basophils # (0-0.2) k/uL Hypochromasia VBG pH 7.06 L* (7.31-7.41) VBG pCO2 23 L (37-51) mmHg VBG HCO3 6 L* (24-28) mmol/L Sodium (137-145) mmol/L Potassium (3.5-5.1) mmol/L Chloride (98-107) mmol/L Carbon Dioxide (22-30) mmol/L Anion Gap mmol/L BUN (9-20) mg/dL Creatinine (0.66-1.25) mg/dL Est GFR (CKD-EPI)AfAm (>60 ml/min/1.73 sqM) Est GFR (CKD-EPI)NonAf (>60 ml/min/1.73 sqM) Glucose (74-99) mg/dL POC Glucose (mg/dL) (70-110) mg/dL POC Glu Architectural Examiner ID Lactic Ac Sepsis Rflx Y Plasma Lactic Acid Len (0.7-2.0) mmol/L Calcium (8.4-10.2) mg/dL Magnesium (1.6-2.3) mg/dL Total Bilirubin (0.2-1.3) mg/dL AST (17-59) U/L ALT (4-49) U/L Alkaline Phosphatase (38-126) U/L Total Protein (6.3-8.2) g/dL Albumin (3.5-5.0) g/dL Urine Color Colorless Urine Appearance Clear (Clear) Urine pH 5.0 (5.0-8.0) Ur Specific [place] 1.022 (1.001-1.035) Urine Protein Trace H (Negative) Urine Glucose (UA) 4+ H (Negative) Urine Ketones 4+ H (Negative) Urine Blood Trace H (Negative) Urine Nitrite Negative (Negative) Urine Bilirubin Negative (Negative) Urine Urobilinogen <2.0 (<2.0) mg/dL Ur Leukocyte Esterase Negative (Negative) Urine RBC 1 (0-5) /hpf Urine Mucus Rare H (None) /hpf Acetone, Qual (Negative) 03/02/22 03/02/22 Range/Units 01:49 02:42 WBC (3.8-10.6) k/uL RBC (4.30-5.90) m/uL Hgb (13.0-17.5) gm/dL Hct (39.0-53.0) % MCV (80.0-100.0) fL MCH (25.0-35.0) pg MCHC (31.0-37.0) g/dL RDW (11.5-15.5) % Plt Count (150-450) k/uL MPV Neutrophils % % Lymphocytes % % Monocytes % % Eosinophils % % Basophils % % Neutrophils # (1.3-7.7) k/uL Lymphocytes # (1.0-4.8) k/uL Monocytes # (0-1.0) k/uL Eosinophils # (0-0.7) k/uL Basophils # (0-0.2) k/uL Hypochromasia VBG pH (7.31-7.41) VBG pCO2 (37-51) mmHg VBG HCO3 (24-28) mmol/L Sodium (137-145) mmol/L Potassium (3.5-5.1) mmol/L Chloride (98-107) mmol/L Carbon Dioxide (22-30) mmol/L Anion Gap mmol/L BUN (9-20) mg/dL Creatinine (0.66-1.25) mg/dL Est GFR (CKD-EPI)AfAm (>60 ml/min/1.73 sqM) Est GFR (CKD-EPI)NonAf (>60 ml/min/1.73 sqM) Glucose (74-99) mg/dL POC Glucose (mg/dL) 458 H 418 H (70-110) mg/dL POC Glu Architectural Examiner Dinorah Coburn Emily Lactic Ac Sepsis Rflx Plasma Lactic Acid Len (0.7-2.0) mmol/L Calcium (8.4-10.2) mg/dL Magnesium (1.6-2.3) mg/dL Total Bilirubin (0.2-1.3) mg/dL AST (17-59) U/L ALT (4-49) U/L Alkaline Phosphatase (38-126) U/L Total Protein (6.3-8.2) g/dL Albumin (3.5-5.0) g/dL Urine Color Urine Appearance (Clear) Urine pH (5.0-8.0) Ur Specific [place] (1.001-1.035) Urine Protein (Negative) Urine Glucose (UA) (Negative) Urine Ketones (Negative) Urine Blood (Negative) Urine Nitrite (Negative) Urine Bilirubin (Negative) Urine Urobilinogen (<2.0) mg/dL Ur Leukocyte Esterase (Negative) Urine RBC (0-5) /hpf Urine Mucus (None) /hpf Acetone, Qual (Negative) Critical Care Time Critical Care Time: Yes Total Critical Care Time: 33 Disposition Clinical Impression: DKA (diabetic ketoacidosis) Disposition: ADMITTED IP TO THIS HOSP Condition: Serious Referrals: Brown Valenzuela MD [Primary Care Provider] - 1-2 days Decision Time: 03:21
[2022-03-01 23:43] LABS: VBG PH 7.06 (7.31-7.41)
[2022-03-01 23:55] LABS: ALT 22 U/L (4-49); AST 22 U/L (17-59); African American GFR (CKD) 82 (>60 ml/min/1.73 sqM); Albumin 5.7 g/dL (3.5-5.0); Alkaline Phosphatase 128 U/L (38-126); Anion Gap 36 mmol/L; Blood Urea Nitrogen 25 mg/dL (9-20); Calcium 10.4 mg/dL (8.4-10.2); Chloride 99 mmol/L (98-107); Magnesium 2.3 mg/dL (1.6-2.3); Non-African American GFR(CKD) 71 (>60 ml/min/1.73 sqM); Sodium 141 mmol/L (137-145); Total Bilirubin 0.7 mg/dL (0.2-1.3); Total Protein 8.5 g/dL (6.3-8.2)
[2022-03-01 23:58] LABS: Basophils # (A) 0.1 k/uL (0-0.2); Basophils % (A) 0 %; Eosinophils % (A) 0 %; HCT 52.3 % (39.0-53.0); Hypochromasia Slight; Lymphocytes # (A) 1.9 k/uL (1.0-4.8); Lymphocytes % (A) 6 %; MCH 31.6 pg (25.0-35.0); MCHC 32.8 g/dL (31.0-37.0); MCV 96.5 fL (80.0-100.0); Mean Platelet Volume 8.3; Monocytes % (A) 3 %; Neutrophils # (A) 30.3 k/uL (1.3-7.7); Neutrophils % (A) 91 %; Platelet Count 407 k/uL (150-450); RBC 5.42 m/uL (4.30-5.90); RDW 12.4 % (11.5-15.5); WBC 33.4 k/uL (3.8-10.6)
[2022-03-02 00:02] LABS: HGB 17.1 gm/dL (13.0-17.5)
[2022-03-02 00:04] LABS: Carbon Dioxide 6 mmol/L (22-30); Glucose 672 mg/dL (74-99)
[2022-03-02] MEDS ORDERED: Magnesium Replacement Protocol 1 EACH MISC MISCELLANE PRN (00:12)
[2022-03-02] MEDS ORDERED: Potassium Replacement Protocol 1 EACH MISC MISCELLANE PRN (00:12)
[2022-03-02] MEDS ORDERED: INSULIN REGULAR BOLUS (FROM DRIP BAG) IV ONE (00:12)
[2022-03-02] MEDS ORDERED: ONDANSETRON 4 MG/2 ML VIAL IVP STA (00:46)
[2022-03-02] MEDS: SODIUM CHLORIDE 0.9% 1,000 ML IV SCH ×5 (00:48→23:37)
[2022-03-02] MEDS: INSULIN REGULAR 100 UNIT in SODIUM CHLORIDE 0.9% 100 ML IV SCH ×2 (00:48→09:28)
[2022-03-02 01:04] LABS: Appearance,Urine Clear (Clear); Bilirubin,Urine Negative (Negative); Blood,Urine Trace (Negative); Color,Urine Colorless; Glucose,Urine (UA) 4+ (Negative); Leukocyte Esterase,Urine Negative (Negative); Mucus,Urine Rare /hpf; Nitrite,Urine Negative (Negative); Protein,Urine Trace (Negative); RBC,Urine 1 /hpf (0-5); Specific Gravity,Urine 1.022 (1.001-1.035); Urobilinogen,Urine <2.0 mg/dL (<2.0)
[2022-03-02 01:15] LABS: Ketones,Urine 4+ (Negative)
[2022-03-02 01:52] LABS: Glucose,Whole Blood 458 mg/dL (70-110)
[2022-03-02 02:44] LABS: Glucose,Whole Blood 418 mg/dL (70-110)
[2022-03-02] MEDS ORDERED: NALOXONE 0.4 MG/ML 1 ML VIAL IV PRN (03:19)
[2022-03-02 03:47] LABS: Phosphorus 4.6 mg/dL (2.5-4.5); Potassium 5.3 mmol/L (3.5-5.1)
[2022-03-02 03:54] LABS: Glucose,Whole Blood 332 mg/dL (70-110)
[2022-03-02 05:04] LABS: Glucose,Whole Blood 262 mg/dL (70-110)
[2022-03-02] MEDS: D5-0.45% NACL WITH KCL 20MEQ/L 1,000 ML IV SCH ×2 (05:27→14:26)
[2022-03-02 05:58] LABS: Glucose,Whole Blood 253 mg/dL (70-110)
[2022-03-02 07:03] LABS: Glucose,Whole Blood 244 mg/dL (70-110)
[2022-03-02 08:08] LABS: Glucose,Whole Blood 208 mg/dL (70-110)
[2022-03-02 08:25] LABS: African American GFR (CKD) >90 (>60 ml/min/1.73 sqM); Anion Gap 12 mmol/L; Blood Urea Nitrogen 26 mg/dL (9-20); Carbon Dioxide 17 mmol/L (22-30); Chloride 111 mmol/L (98-107); Glucose 221 mg/dL (74-99); Non-African American GFR(CKD) >90 (>60 ml/min/1.73 sqM); Potassium 4.9 mmol/L (3.5-5.1); Sodium 140 mmol/L (137-145)
[2022-03-02 09:07] LABS: Glucose,Whole Blood 196 mg/dL (70-110)
[2022-03-02 10:43] LABS: Glucose,Whole Blood 161 mg/dL (70-110)
[2022-03-02 11:12] LABS: Glucose,Whole Blood 130 mg/dL (70-110)
[2022-03-02 12:12] LABS: Glucose,Whole Blood 118 mg/dL (70-110)
[2022-03-02 12:52] VITALS: BMI 22.5
[2022-03-02 12:57] LABS: Glucose,Whole Blood 111 mg/dL (70-110)
[2022-03-02] MEDS: INSULIN ASPART (NovoLOG) 100 UNIT/ML VIAL SQ SCH ×3 (14:21→20:08)
[2022-03-02] MEDS: METOCLOPRAMIDE 10 MG TAB PO PRN (14:26)
[2022-03-02] MEDS: GABAPENTIN 300 MG CAP PO SCH ×2 (16:56→23:37)
[2022-03-02 17:15] LABS: Glucose,Whole Blood 293 mg/dL (70-110)
[2022-03-02] MEDS ORDERED: DEXTROSE 50% SYRINGE 50 ML IVP PRN ×2 (19:24)
[2022-03-02 20:03] LABS: Glucose,Whole Blood 236 mg/dL (70-110)
[2022-03-02] MEDS: ONDANSETRON 4 MG/2 ML VIAL IVP PRN (20:08)
--- NOTE | 2022-03-03 01:12 | HP ---
HISTORY AND PHYSICAL CHIEF COMPLAINT: Nausea, vomiting, and DKA. HISTORY OF PRESENT ILLNESS: This is another admission for this 26-year-old white male with type 1 poorly controlled insulin-dependent diabetes mellitus, who goes on and off his medications, drinks alcohol, then usually comes in. He stated he was drinking 2 to 3 days ago, did not take his insulin and he came in with DKA. REVIEW OF SYSTEMS: He has vomiting. He has no headache, neurologic problems, chest pain, abdominal pain, etc. PAST MEDICAL HISTORY: Otherwise, unremarkable, noncontributory and unchanged. FAMILY HISTORY: Otherwise, unremarkable, noncontributory and unchanged. PERSONAL AND SOCIAL HISTORY: Otherwise, unremarkable, noncontributory and unchanged. PHYSICAL EXAMINATION: VITAL SIGNS: Blood pressure 132/94 pulse is 110. GENERAL: He appeared to be very uncomfortable and vomiting. HEAD, EARS, EYES, NOSE, MOUTH AND THROAT: Grossly normal. CHEST: Clear. CARDIAC: Exam demonstrates sinus tachycardia. ABDOMEN: Soft, nontender. EXTREMITIES: Normal. IMPRESSION: 1. Diabetic ketoacidosis. 2. Dehydration. 3. Depression. 4. Uncontrolled type 1 insulin-dependent diabetes mellitus. 5. History of gastroparesis. PLAN: 1. Bed rest. 2. IV fluids. 3. Antiemetics. 4. Correct blood sugars and close anion gap. MMODL / IJN: [id number] /
[2022-03-03] MEDS: SODIUM CHLORIDE 0.9% 1,000 ML IV SCH ×4 (04:21→23:21)
[2022-03-03] MEDS: ONDANSETRON 4 MG/2 ML VIAL IVP PRN ×3 (05:41→21:07)
[2022-03-03 07:39] LABS: Glucose,Whole Blood 434 mg/dL (70-110)
[2022-03-03] MEDS: INSULIN DETEMIR (LEVEMIR) 100 UNIT/ML SYR SQ SCH (08:42)
[2022-03-03] MEDS: INSULIN ASPART (NovoLOG) 100 UNIT/ML VIAL SQ SCH ×7 (08:42→20:22)
[2022-03-03] MEDS: METOCLOPRAMIDE 5 MG/ML 2 ML VIAL IVP PRN ×2 (08:43→17:38)
[2022-03-03] MEDS: GABAPENTIN 300 MG CAP PO SCH ×3 (09:00→20:23)
[2022-03-03 11:49] LABS: Glucose,Whole Blood 309 mg/dL (70-110)
[2022-03-03 13:22] LABS: Basophils % (A) 0 %; Eosinophils # (A) 0.1 k/uL (0-0.7); Eosinophils % (A) 0 %; HCT 46.3 % (39.0-53.0); HGB 16.2 gm/dL (13.0-17.5); Lymphocytes # (A) 1.2 k/uL (1.0-4.8); Lymphocytes % (A) 4 %; MCH 32.4 pg (25.0-35.0); MCHC 34.9 g/dL (31.0-37.0); MCV 92.7 fL (80.0-100.0); Mean Platelet Volume 7.4; Monocytes # (A) 0.8 k/uL (0-1.0); Monocytes % (A) 3 %; Neutrophils # (A) 26.4 k/uL (1.3-7.7); Neutrophils % (A) 92 %; Platelet Count 377 k/uL (150-450); RDW 12.6 % (11.5-15.5); WBC 28.6 k/uL (3.8-10.6)
[2022-03-03 13:55] LABS: African American GFR (CKD) >90 (>60 ml/min/1.73 sqM); Anion Gap 24 mmol/L; Blood Urea Nitrogen 20 mg/dL (9-20); Calcium 9.5 mg/dL (8.4-10.2); Carbon Dioxide 13 mmol/L (22-30); Chloride 103 mmol/L (98-107); Glucose 283 mg/dL (74-99); Magnesium 2.1 mg/dL (1.6-2.3); Non-African American GFR(CKD) >90 (>60 ml/min/1.73 sqM); Phosphorus 3.9 mg/dL (2.5-4.5); Potassium 4.9 mmol/L (3.5-5.1); Sodium 140 mmol/L (137-145)
[2022-03-03 13:59] LABS: RBC Morphology Normal
[2022-03-03 16:43] LABS: Glucose,Whole Blood 160 mg/dL (70-110)
[2022-03-03 20:12] LABS: Glucose,Whole Blood 159 mg/dL (70-110)
[2022-03-04] MEDS: METOCLOPRAMIDE 5 MG/ML 2 ML VIAL IVP PRN ×3 (02:07→15:45)
[2022-03-04] MEDS: ONDANSETRON 4 MG/2 ML VIAL IVP PRN ×3 (04:19→15:45)
[2022-03-04] MEDS: SODIUM CHLORIDE 0.9% 1,000 ML IV SCH ×5 (05:42→20:36)
[2022-03-04 05:59] LABS: Glucose,Whole Blood 308 mg/dL (70-110)
[2022-03-04] MEDS: INSULIN DETEMIR (LEVEMIR) 100 UNIT/ML SYR SQ SCH (06:28)
[2022-03-04] MEDS: INSULIN ASPART (NovoLOG) 100 UNIT/ML VIAL SQ SCH ×8 (06:28→20:28)
[2022-03-04 12:32] LABS: Glucose,Whole Blood 214 mg/dL (70-110)
[2022-03-04 13:20] LABS: ALT 15 U/L (4-49); AST 15 U/L (17-59); African American GFR (CKD) >90 (>60 ml/min/1.73 sqM); Albumin 4.2 g/dL (3.5-5.0); Alkaline Phosphatase 86 U/L (38-126); Anion Gap 16 mmol/L; Blood Urea Nitrogen 17 mg/dL (9-20); Calcium 8.5 mg/dL (8.4-10.2); Carbon Dioxide 18 mmol/L (22-30); Chloride 101 mmol/L (98-107); Glucose 240 mg/dL (74-99); Non-African American GFR(CKD) >90 (>60 ml/min/1.73 sqM); Potassium 4.3 mmol/L (3.5-5.1); Sodium 135 mmol/L (137-145); Total Protein 6.2 g/dL (6.3-8.2)
[2022-03-04 13:22] LABS: Basophils % (A) 0 %; Eosinophils % (A) 0 %; HCT 41.1 % (39.0-53.0); HGB 14.3 gm/dL (13.0-17.5); Lymphocytes # (A) 1.6 k/uL (1.0-4.8); Lymphocytes % (A) 9 %; MCH 31.6 pg (25.0-35.0); MCHC 34.8 g/dL (31.0-37.0); MCV 90.8 fL (80.0-100.0); Mean Platelet Volume 7.3; Monocytes # (A) 0.7 k/uL (0-1.0); Monocytes % (A) 4 %; Neutrophils # (A) 14.5 k/uL (1.3-7.7); Neutrophils % (A) 86 %; Platelet Count 301 k/uL (150-450); RBC 4.53 m/uL (4.30-5.90); RDW 12.4 % (11.5-15.5); WBC 16.9 k/uL (3.8-10.6)
[2022-03-04] MEDS: GABAPENTIN 300 MG CAP PO SCH ×2 (15:46→19:55)
[2022-03-04 17:06] LABS: Glucose,Whole Blood 185 mg/dL (70-110)
[2022-03-04 20:00] LABS: Glucose,Whole Blood 213 mg/dL (70-110)
[2022-03-04] MEDS: METOCLOPRAMIDE 10 MG TAB PO PRN (20:29)
[2022-03-05] MEDS: SODIUM CHLORIDE 0.9% 1,000 ML IV SCH ×4 (05:26→17:12)
[2022-03-05 06:08] LABS: Glucose,Whole Blood 232 mg/dL (70-110)
[2022-03-05] MEDS: INSULIN ASPART (NovoLOG) 100 UNIT/ML VIAL SQ SCH ×7 (06:30→22:58)
[2022-03-05] MEDS: METOCLOPRAMIDE 10 MG TAB PO PRN (06:30)
[2022-03-05] MEDS: INSULIN DETEMIR (LEVEMIR) 100 UNIT/ML SYR SQ SCH (06:31)
[2022-03-05] MEDS: GABAPENTIN 300 MG CAP PO SCH ×3 (08:50→22:58)
[2022-03-05 10:47] LABS: Glucose,Whole Blood 159 mg/dL (70-110)
--- NOTE | 2022-03-05 12:08 | PN ---
PROGRESS NOTE CHIEF COMPLAINT: DKA. HISTORY OF PRESENT ILLNESS: This gentleman is a little bit better. He is still having some episodes of nausea and vomiting. Blood sugars are improved. PHYSICAL EXAMINATION: ABDOMEN: Soft and bowel sounds are present. EXTREMITIES: Normal. CHEST: Clear. IMPRESSION: 1. Diabetic ketoacidosis. 2. Nausea, vomiting. 3. Dehydration. 4. Gastroparesis. PLAN: Continue with current program until the nausea and vomiting stops and his diet can be advanced. MMODL / IJN: [id number] /
--- NOTE | 2022-03-05 12:38 | PN ---
PROGRESS NOTE CHIEF COMPLAINT: DKA. HISTORY OF PRESENT ILLNESS: This gentleman is still complaining of nausea and vomiting and he has some upper abdominal pain. REVIEW OF SYSTEMS: He has had no hematemesis, diarrhea, melena, fever, chills, etc. Sugars are improving. IMPRESSION: 1. Diabetic ketoacidosis. 2. Persistent nausea and vomiting. 3. Abdominal pain. 4. Gastroparesis. PLAN: Slowly progress his diet and continue to monitor blood sugars. MMODL / IJN: [id number] /
--- NOTE | 2022-03-05 13:54 | P.CN ---
Psychiatric Consult - . Consult date: 03/05/22 Consult:: 03/05/22 13:18 IDENTIFYING DATA: Patient is a single, unemployed, 26-year-old male with significant history of diabetes mellitus type 1, depression, and borderline personality disorder, lives with his boss. HPI: Patient presented to the hospital yesterday and was admitted medically. Apparently patient's possible who he lives with at home called EMS as patient was feeling lethargic and also nauseous and vomiting. Patient was brought in by EMS to the hospital. Patient has a long-standing history of depression, borderline personality disorder and also uncontrolled diabetes mellitus. Patient apparently had admitted that he did not take his insulin prior to coming in the hospital. Patient's blood glucose was significantly elevated. Patient was found to be in DKA and also lethargic. Patient was seen today by rfp writer for psychiatric consultation. Patient was laying in bed and awoke when rfp writer called his name several times. Patient claims that he feels "fine" with regards to his mood and is denying depression. He states that he feels "sick" and his been having abdominal pain. He was fairly vague about what had occurred at home and states that he missed "one insulin shot" and states that his blood glucose was elevated. He did not feel like speaking more rfp writer. He is denying any suicidal or homicidal ideations intent or plan. Denying any auditory or visual hallucinations at this time. PAST PSYCHIATRIC HISTORY: The patient has had multiple psychiatric hospitalizations. He is nonadherent with any prescribed medications and does not follow up with any psychiatrist or therapist on a regular basis. Patient has been tried on several different antidepressants in the past however has been nonadherent and has been not helpful to him. Patient has had several suicide attempts in the past. PMH: Past Medical History: Asthma, Diabetes Mellitus, Neurologic Disorder, Skin Disorder Additional Past Medical History / Comment(s): IDDM type I, neuropathy bilateral feet, DKA, eczema. History of Any Multi-Drug Resistant Organisms: None Reported Past Surgical History: Adenoidectomy Additional Past Surgical History / Comment(s): 2002 Past Anesthesia/Blood Transfusion Reactions: No Reported Reaction Past Psychological History: Anxiety, Depression Smoking Status: Never smoker, Vaper Past Alcohol Use History: Occasional Past Drug Use History: Marijuana ALLERGIES: NO KNOWN DRUG ALLERGIES CHEMICAL DEPENDENCY HISTORY: The patient reports binge alcohol use episodes in the past. He does admit to marijuana use, up to a quarter ounce per day. He has a history of Xanax abuse however denies any Xanax use over the past few weeks. FAMILY PSYCHIATRIC/SUBSTANCE USE HISTORY: Denies SOCIAL HISTORY: Patient was born and raised in [place]. He dropped out in the 11th grade. He lives with his boss at his home. He is currently working MENTAL STATUS EXAM: General Appearance: Patient appears to be tall, thin, lethargic, stated age is appears to have abdominal pain. Also feels nauseous. Patient appears to have a slightly disheveled hygiene and grooming. Behavior: Patient is seated without any agitated behavior. Laying down in bed without any agitated behavior. Eye contact is intermittent. Speech: Patient's speech is fluent and nonpressured. Monotone. Mood/Affect: Patient reports their mood is fine, affect is incongruent and appears to be somewhat restricted Suicidality/Homicidality: Patient denies suicidal ideation denies any homicidal ideation. Perceptions: Patient denies any visual hallucinations and denies any auditory hallucinations Though content/process: There is no evidence of any delusional thought content and thought process is linear and goal-directed. [place]. Memory and concentration: AOX3, grossly intact for the purposes of this session. Can spell "WORLD" backwards Judgment and insight: Chronically poor and impulsive IMPRESSIONS: Nonadherence to medications DKA Borderline personality disorder History of depression Cannabis use disorder History of sedative hypnotic use disorder PLAN: -At this time patient DOES NOT meet criteria for inpatient psychiatric admission. -Patient has chronically poor judgment and insight and is a chronic risk to self-harm due to his personality disorder impulsiveness and substance abuse. Patient is also nonadherent to medications including antidepressants and diabetic medications. -Would recommend the following medication changes/additions: Cage Cashier spoke with patient about different medication options however patient states that "none of them work" and did not want to get started on any medications at this time inclu ding antidepressants. It is recommended and rfp writer informed patient that he needs to follow-up with [facility] and go into DBT therapy which I believe will be most suitable for him. -hotel maintenance worker to provide patient with outpatient mental health/psychiatry resources for appropriate follow up upon discharge -Cage Cashier spoke with patient about substance abuse and the harmful effects on medical and mental health, patient verbally understood and agreed. -Communicated plan to patient's nurse -Psychiatry will sign off at this time -Please contact with any questions.
[2022-03-05 16:12] LABS: Glucose,Whole Blood 137 mg/dL (70-110)
[2022-03-05 21:19] LABS: Glucose,Whole Blood 152 mg/dL (70-110)
[2022-03-05] MEDS: ONDANSETRON 4 MG/2 ML VIAL IVP PRN (23:01)
[2022-03-06] MEDS: SODIUM CHLORIDE 0.9% 1,000 ML IV SCH ×5 (02:20→19:24)
[2022-03-06] MEDS: ONDANSETRON 4 MG/2 ML VIAL IVP PRN (06:30)
[2022-03-06 07:14] LABS: Glucose,Whole Blood 311 mg/dL (70-110)
[2022-03-06] MEDS: INSULIN DETEMIR (LEVEMIR) 100 UNIT/ML SYR SQ SCH (07:21)
[2022-03-06] MEDS: INSULIN ASPART (NovoLOG) 100 UNIT/ML VIAL SQ SCH ×7 (07:40→21:12)
--- NOTE | 2022-03-06 07:51 | PN ---
PROGRESS NOTE CHIEF COMPLAINT: DKA with persistent nausea and vomiting. HISTORY OF PRESENT ILLNESS: This gentleman is still nauseated, but he is vomiting less. Sugars are down. He is very depressed. PHYSICAL EXAMINATION: CHEST: Clear. CARDIAC: Exam is normal. ABDOMEN: Flat, soft, and nontender with normal bowel sounds. IMPRESSION: 1. Diabetic ketoacidosis. 2. Uncontrolled type 1 diabetes mellitus. 3. Nausea and vomiting. 4. Gastroparesis. 5. Depression. PLAN: 1. Continue with IV fluids and antiemetics. 2. Psychiatry consult. MMBIANCA / TRAMN: [id number] /
[2022-03-06] MEDS: GABAPENTIN 300 MG CAP PO SCH ×3 (08:27→21:12)
--- NOTE | 2022-03-06 11:12 | CDI ---
Documentation Clarification Form Date: 03/06/22 From: Bella Cid Admit Date: 03/02/2022 03:19:00 AM Patient Name: Raul Marquez Visit Number: [id number] ATTENTION: The Clinical Documentation Specialists (CDI) and [facility] Coding Staff appreciate your assistance in clarifying documentation. Please respond to the clarification below the line at the bottom and electronically sign. The CDI & [facility] Coding staff will review the response and follow-up if needed. Please note: Queries are made part of the Legal Health Record. If you have any questions, please contact the author of this message via ITS. Dr. Brown Valenzuela Your patient has an abnormal lab value: BUN 25 and Creatinine 1.38 on 03/01. Please clarify if there is an additional diagnosis and/or clinical significance related to this value. History/Risk Factors: Uncontrolled DM1, patient presented in DKA with glucose level of 672 Clinical indicators: 03/01 BUN/Creat/GFR: 25/1.38/82 03/02 BUN/Creat/GFR: 26/1.32/87 03/03 BUN/Creat/GFR: 26/0.86/>90 LA: 03/01 4.7, 03/02 2.2, 03/03 1.0 03/01: K 6.0, AG 36, Ca 10.4, VBG pH 7.06/CO2 23/HCO3 6 Treatment: IV fluid, insulin gtt, monitoring Is there an additional diagnosis and/or clinical significance related to the above lab result/information? [ ] Acute renal failure [ ] Acute kidney insufficiency [ ] Acute kidney injury [ ] No additional diagnosis/Not clinically significant [ ] Other, please specify [ ] Unable to determine (Template Last Revised: June 2020) MTDD
--- NOTE | 2022-03-06 11:13 | CDI ---
Documentation Clarification Form Date: 03/06/2022 From: Bella Cid Admit Date: 03/02/2022 03:19:00 AM Patient Name: Raul Marquez Visit Number: [id number] ATTENTION: The Clinical Documentation Specialists (CDI) and [facility] Coding Staff appreciate your assistance in clarifying documentation. Please respond to the clarification below the line at the bottom and electronically sign. The CDI & [facility] Coding staff will review the response and follow-up if needed. Please note: Queries are made part of the Legal Health Record. If you have any questions, please contact the author of this message via ITS. Dr. Brown Valenzuela Your patient has DKA and an elevated WBC 33.4 on admission. Based on this information and the findings below, is there an additional diagnosis that is clinically appropriate for this patient? History/Risk Factors: 26yo type 1 diabetic presented with DKA, lethargic w/ kussmaul respirations Clinical Indicators: ER WBC 33.4, BUN 25, Creat 1.38, GFR 82, Gluc 672, K 6.0, LA 4.7 ER VS: 98F, HR 124-132, RR 20-22, BP 113/66 123/75, SaO2 98%-99% 03/06 VS: 97.6F, HR 106-133, RR 15-18, BP 126/88 129/90, SaO2 97% Treatment: Insulin gtt, IV fluid, monitoring Is there an additional diagnosis that is clinically appropriate for this patient? [ ] SIRS, due to DKA, without acute organ dysfunction [ ] SIRS, due to DKA, with acute renal failure [ ] Other, please specify [ ] Unable to determine MTDD
[2022-03-06 11:49] LABS: Glucose,Whole Blood 207 mg/dL (70-110)
[2022-03-06 17:08] LABS: Glucose,Whole Blood 177 mg/dL (70-110)
[2022-03-06 21:15] LABS: Glucose,Whole Blood 258 mg/dL (70-110)
[2022-03-07] MEDS: SODIUM CHLORIDE 0.9% 1,000 ML IV SCH ×4 (01:52→14:40)
[2022-03-07 05:58] LABS: Glucose,Whole Blood 273 mg/dL (70-110)
[2022-03-07] MEDS: INSULIN ASPART (NovoLOG) 100 UNIT/ML VIAL SQ SCH ×7 (06:46→20:54)
[2022-03-07] MEDS: INSULIN DETEMIR (LEVEMIR) 100 UNIT/ML SYR SQ SCH (06:59)
[2022-03-07] MEDS: GABAPENTIN 300 MG CAP PO SCH ×3 (09:37→20:53)
[2022-03-07 11:42] LABS: Glucose,Whole Blood 255 mg/dL (70-110)
[2022-03-07] MEDS: METOCLOPRAMIDE 5 MG/ML 2 ML VIAL IVP PRN (12:07)
[2022-03-07] MEDS: ONDANSETRON 4 MG/2 ML VIAL IVP PRN (14:37)
[2022-03-07 15:33] VITALS: RESP 18
[2022-03-07 16:58] LABS: Glucose,Whole Blood 168 mg/dL (70-110)
[2022-03-07 17:54] LABS: Glucose,Whole Blood 231 mg/dL (70-110)
[2022-03-07 20:21] LABS: Glucose,Whole Blood 401 mg/dL (70-110)
[2022-03-07 20:51] VITALS: BP 143/97; PULSE 131; TEMP 97.7
--- NOTE | 2022-03-08 05:00 | PN ---
PROGRESS NOTE CHIEF COMPLAINT: DKA and intractable nausea and vomiting. HISTORY OF PRESENT ILLNESS: This gentleman is still nauseated and vomited again this morning. He has had no abdominal pain, fever, chills, etc. PHYSICAL EXAMINATION: GENERAL: He remains lethargic. CHEST: Clear. CARDIAC: Normal. ABDOMEN: Flat, soft and nontender. Bowel sounds are present. IMPRESSION: 1. Intractable nausea and vomiting. 2. Gastroparesis. 3. Diabetic ketoacidosis. 4. Depression. PLAN: Continue efforts to control the gastroparesis and vomiting. MMODL / IJN: [id number] /
--- NOTE | 2022-03-08 05:00 | PN ---
PROGRESS NOTE CHIEF COMPLAINT: DKA and intractable abdominal pain and vomiting. HISTORY OF PRESENT ILLNESS: This gentleman continues to be nauseated, experienced crampy abdominal pain and vomiting. He is also lethargic. Sugars are improved. PHYSICAL EXAMINATION: ABDOMEN: Flat, soft and slightly tender over the epigastrium and no masses. CHEST: Clear. CARDIAC: Normal. IMPRESSION: 1. Diabetic ketoacidosis. 2. Gastroparesis. 3. Intractable nausea and vomiting. 4. Depression. PLAN: 1. Continue with current management program. 2. Psychiatric consult for depression. MMODL / IJN: [id number] /
--- NOTE | 2022-03-11 00:09 | DS ---
DISCHARGE SUMMARY CHIEF COMPLAINT: DKA. HISTORY OF PRESENT ILLNESS AND PHYSICAL EXAMINATION: Details of this man's history and physical can be found in the initial workup. LABORATORY STUDIES: While he was in the hospital, he had laboratory studies, details of which can be found in the laboratory section of his chart. COURSE IN THE HOSPITAL: After admission, he was placed on bedrest and started on intravenous fluids and DKA protocol. Blood sugars came down. He persisted in having lethargy and intractable nausea and vomiting for several days. Finally, this started to slow and was able to advance his diet, was doing well, and then as he usually does, he signed out against medical advice on the . FINAL DIAGNOSES: 1. Diabetic ketoacidosis. 2. Dehydration. 3. Uncontrolled type 1 insulin-dependent diabetes mellitus due to noncompliance. 4. Depression. 5. Homelessness. 6. Gastroparesis. MMSHANEL / IJN: [id number] /
--- NOTE | 2022-03-20 07:56 | CDI ---
Documentation Clarification Form Date: 03/06/2022 10:56:00 AM From: Bella Cid Admit Date: 03/02/2022 03:19:00 AM Patient Name: Raul Marquez Visit Number: [id number] Discharge Date: 03/08/2022 12:55:00 AM ATTENTION: The Clinical Documentation Specialists (CDI) and [facility] Coding Staff appreciate your assistance in clarifying documentation. Please respond to the clarification below the line at the bottom and electronically sign. The CDI & [facility] Coding staff will review the response and follow-up if needed. Please note: Queries are made part of the Legal Health Record. If you have any questions, please contact the author of this message via ITS. Dr. Brown Valenzuela Your patient has an abnormal lab value: BUN 25 and Creatinine 1.38 on 03/01. Please clarify if there is an additional diagnosis and/or clinical significance related to this value. History/Risk Factors: Uncontrolled DM1, patient presented in DKA with glucose level of 672 Clinical indicators: 03/01 BUN/Creat/GFR: 25/1.38/82 03/02 BUN/Creat/GFR: 26/1.32/87 03/03 BUN/Creat/GFR: 26/0.86/>90 LA: 03/01 4.7, 03/02 2.2, 03/03 1.0 Treatment: IV fluid, insulin gtt Is there an additional diagnosis and/or clinical significance related to the above lab result/information? [ ] Acute renal failure [ ] Acute kidney insufficiency [ ] Acute kidney injury [ ] No additional diagnosis/Not clinically significant [ ] Other, please specify [ ] Unable to determine MTDD
--- NOTE | 2022-03-20 07:58 | CDI ---
Documentation Clarification Form Date: 03/06/2022 11:14:00 AM From: Bella Cdi Admit Date: 03/02/2022 03:19:00 AM Patient Name: Raul Marquez Visit Number: [id number] Discharge Date: 03/08/2022 12:55:00 AM ATTENTION: The Clinical Documentation Specialists (CDI) and [facility] Coding Staff appreciate your assistance in clarifying documentation. Please respond to the clarification below the line at the bottom and electronically sign. The CDI & [facility] Coding staff will review the response and follow-up if needed. Please note: Queries are made part of the Legal Health Record. If you have any questions, please contact the author of this message via ITS. Dr. Brown Valenzuela Your patient has DKA and an elevated WBC 33.4 on admission. Based on this information and the findings below, is there an additional diagnosis that is clinically appropriate for this patient? History/Risk Factors: 26yo type 1 diabetic presented with DKA, lethargic w/ kussmaul respirations Clinical Indicators: ER WBC 33.4, BUN 25, Creat 1.38, GFR 82, Gluc 672, K 6.0, LA 4.7 ER VS: 98F, HR 124-132, RR 20-22, BP 113/66 123/75, SaO2 98%-99% 03/06 VS: 97.6F, HR 106-133, RR 15-18, BP 126/88 129/90, SaO2 97% Treatment: Insulin gtt, IV fluid, monitoring Is there an additional diagnosis that is clinically appropriate for this patient? [ ] SIRS, due to DKA, without acute organ dysfunction [ ] SIRS, due to DKA, with acute renal failure [ ] Other, please specify [ ] Unable to determine MTDD
--- NOTE | 2022-03-20 12:11 | MISC ---
MISCELLANOUS REPORT No services are there. KIMMIEA. MMODL / IJN: [id number] /
--- NOTE | 2022-03-30 11:35 | MISC ---
MISCELLANOUS REPORT No additional diagnosis clinically significant, unable to determine. MMODL / IJN: [id number] /
--- NOTE | 2022-04-11 10:29 | CDI ---
Documentation Clarification Form Date: 03/06/2022 10:56:00 AM From: Bella Cid Admit Date: 03/02/2022 03:19:00 AM Patient Name: Raul Marquez Visit Number: [id number] Discharge Date: 03/08/2022 12:55:00 AM ATTENTION: The Clinical Documentation Specialists (CDI) and [facility] Coding Staff appreciate your assistance in clarifying documentation. Please respond to the clarification below the line at the bottom and electronically sign. The CDI & [facility] Coding staff will review the response and follow-up if needed. Please note: Queries are made part of the Legal Health Record. If you have any questions, please contact the author of this message via ITS. Dr. Brown Valenzuela Your patient has an abnormal lab value: BUN 25 and Creatinine 1.38 on 03/01. Please clarify if there is an additional diagnosis and/or clinical significance related to this value. History/Risk Factors: Uncontrolled DM1, patient presented in DKA with glucose level of 672 Clinical indicators: 03/01 BUN/Creat/GFR: 25/1.38/82 03/02 BUN/Creat/GFR: 26/1.32/87 03/03 BUN/Creat/GFR: 26/0.86/>90 LA: 03/01 4.7, 03/02 2.2, 03/03 1.0 Treatment: IV fluid, insulin gtt Is there an additional diagnosis and/or clinical significance related to the above lab result/information? [ ] Acute renal failure [ ] Acute kidney insufficiency [ ] Acute kidney injury [ ] No additional diagnosis/Not clinically significant [ ] Other, please specify [ ] Unable to determine (Template Last Revised: June 2020) MTDD
--- NOTE | 2022-04-11 10:30 | CDI ---
Documentation Clarification Form Date: 03/06/2022 11:14:00 AM From: Bella Cid Admit Date: 03/02/2022 03:19:00 AM Patient Name: Raul Marquez Visit Number: [id number] Discharge Date: 03/08/2022 12:55:00 AM ATTENTION: The Clinical Documentation Specialists (CDI) and [facility] Coding Staff appreciate your assistance in clarifying documentation. Please respond to the clarification below the line at the bottom and electronically sign. The CDI & [facility] Coding staff will review the response and follow-up if needed. Please note: Queries are made part of the Legal Health Record. If you have any questions, please contact the author of this message via ITS. Dr. Brown Valenzuela Your patient has DKA and an elevated WBC 33.4 on admission. Based on this information and the findings below, is there an additional diagnosis that is clinically appropriate for this patient? History/Risk Factors: 26yo type 1 diabetic presented with DKA, lethargic w/ kussmaul respirations Clinical Indicators: ER WBC 33.4, BUN 25, Creat 1.38, GFR 82, Gluc 672, K 6.0, LA 4.7 ER VS: 98F, HR 124-132, RR 20-22, BP 113/66 123/75, SaO2 98%-99% 03/06 VS: 97.6F, HR 106-133, RR 15-18, BP 126/88 129/90, SaO2 97% Treatment: Insulin gtt, IV fluid, monitoring Is there an additional diagnosis that is clinically appropriate for this patient? [ ] SIRS, due to DKA, without acute organ dysfunction [ ] SIRS, due to DKA, with acute renal failure [ ] Other, please specify [ ] Unable to determine SIRS Criteria: 2 or more of the following may indicate SIRS -Temperature < 96.8F(36C) or > 101.0F (38.3C) -Heart Rate > 90 bpm -Respiratory Rate > 20 breaths/min or PaCO2 < 32 mmHg -White Blood Cell Count > 12,000 or < 4,000 cells/mm3 or > 10% bands MTDD
--- NOTE | 2022-04-27 06:13 | MISC ---
MISCELLANOUS REPORT Acute kidney injury. Unable to determine. MMODL / IJN: [id number] /
== END 2022-03-08 00:55 | disposition left against medical advice (07) | DRG 638 ==
LOC: EC 23:13 → 3SCARD 03-02 03:19
PROVIDERS: ADMIT Family Medicine; ATTEND Family Medicine
DX: E10.10 Type 1 diabetes mellitus with ketoacidosis without coma (principal); N17.9 Acute kidney failure, unspecified; E10.43 Type 1 diabetes mellitus with diabetic autonomic (poly)neuropathy; D72.829 Elevated white blood cell count, unspecified; E86.0 Dehydration; F32.A Depression, unspecified; L30.9 Dermatitis, unspecified; J45.909 Unspecified asthma, uncomplicated; K31.84 Gastroparesis; Z59.00 Homelessness unspecified; Z79.4 Long term (current) use of insulin; Z91.199 Patient's noncompliance with other medical treatment and regimen due to unspecified reason; T38.3X6A Underdosing of insulin and oral hypoglycemic [antidiabetic] drugs, initial encounter; Z91.128 Patient's intentional underdosing of medication regimen for other reason; Z91.51 Personal history of suicidal behavior; Z56.0 Unemployment, unspecified; Z28.310 Unvaccinated for COVID-19; Z71.3 Dietary counseling and surveillance
CPT/HCPCS: 36415; 80048; 80051; 80053; 81001; 82009; 82565; 82803; 82947; 83605; 83735; 84100; 84520; 85025; 93005; 96360; 99285

== ENCOUNTER 2022-03-09 13:14 | Observation (INO) | payer OTHER ==
[2022-03-09] MEDS ORDERED: SODIUM CHLORIDE 0.9% 1,000 ML IV STA (13:34)
[2022-03-09] MEDS ORDERED: IPRATROPIUM-ALBUTEROL 3 ML NEB INHALATION STA (13:41)
--- NOTE | 2022-03-09 13:43 | ED ---
SOB HPI - General Chief Complaint: Shortness of Breath Stated Complaint: SOB Time Seen by Provider: 03/09/22 13:30 Source: patient, EMS, RN notes reviewed Mode of arrival: EMS Limitations: no limitations - History of Present Illness Initial Comments: This is a 26-year-old male with a past medical history of diabetes mellitus and asthma, who is very well-known to this emergency department, who presents today for shortness of breath. States that this started suddenly this morning. Denies any associated chest pain. States that he feels very fatigued and dehydrated. Does not believe he has ever felt like this before. Denies any recent alcohol or drug use. States that he forgot to take his insulin this morning but believes that he took it yesterday. Denies any fevers, chills, sore throat, cough, chest pain, palpitations, abdominal pain, nausea, vomiting, diarrhea, back pain, or headaches. MD Complaint: shortness of breath Known History Of: asthma - Related Data Home Medications Medication Instructions Recorded Confirmed Insulin Detemir (Levemir) [Levemir] 20 unit SQ DAILY 08/27/20 03/09/22 INSULIN ASPART (NovoLOG) [NovoLOG 10 unit SQ AC-TID 06/29/21 03/09/22 (formulary)] Ergocalciferol (Vitamin D2) 1,250 mcg PO Q30D 12/19/21 03/09/22 [Drisdol (50,000 Iu)] Gabapentin 600 mg PO TID 12/19/21 03/09/22 Previous Rx's Medication Instructions Recorded Metoclopramide [Reglan] 10 mg PO TID PRN #15 tab 12/03/21 Allergies Allergy/AdvReac Type Severity Reaction Status Date / Time No Known Allergies Allergy Verified 03/02/22 12:13 Review of Systems ROS Statement: Those systems with pertinent positive or pertinent negative responses have been documented in the HPI. ROS Other: All systems not noted in ROS Statement are negative. Past Medical History Past Medical History: Asthma, Diabetes Mellitus, Neurologic Disorder, Skin Disorder Additional Past Medical History / Comment(s): IDDM type I, neuropathy bilateral feet, DKA, eczema. History of Any Multi-Drug Resistant Organisms: None Reported Past Surgical History: Adenoidectomy Additional Past Surgical History / Comment(s): 2002 Past Anesthesia/Blood Transfusion Reactions: No Reported Reaction Past Psychological History: Anxiety, Depression Smoking Status: Never smoker Past Alcohol Use History: Occasional Past Drug Use History: Marijuana - Past Family History Mother Family Medical History: CVA/TIA Additional Family Medical History / Comment(s): TIA Father Family Medical History: Hyperlipidemia, Hypertension Additional Family Medical History / Comment(s): . General Exam Limitations: no limitations General appearance: alert, other (drowsy) Head exam: Present: atraumatic, normocephalic, normal inspection Respiratory exam: Present: wheezes, decreased breath sounds Cardiovascular Exam: Present: regular rate, normal rhythm, normal heart sounds. Absent: systolic murmur, diastolic murmur, rubs, gallop, clicks Neurological exam: Present: alert, oriented X3, CN II-XII intact Psychiatric exam: Present: normal affect, normal mood Skin exam: Present: warm, dry, intact, normal color. Absent: rash Course Vital Signs 03/09/22 03/09/22 03/09/22 13:23 13:35 14:12 Temperature 98.5 F Pulse Rate 140 H 84 Respiratory 22 20 Rate Blood Pressure 114/90 O2 Sat by Pulse 100 Oximetry 03/09/22 16:18 Temperature Pulse Rate 130 H Respiratory 20 Rate Blood Pressure 199/88 O2 Sat by Pulse 100 Oximetry Medical Decision Making - Medical Decision Making This is a 26-year-old male who presents to the emergency department for shortness of breath. Lab work, chest x-ray, influenza, and COVID testing were ordered. DuoNeb treatment administered. CMP does reveal hyperglycemia with elevated anion gap and low bicarbonate. Additionally, the patient is acetone positive suggestive of a diabetes type ketoacidosis. However, his acid base disturbance is inconsistent with this due to a pH of 7.45. I spoke with Dr. Lynn regarding this finding, and states that his body may have not adjusted to the DKA state yet or is there is another explanation that is not clear yet. D- dimer is negative, ruling out a PE. COVID and influenza testing are negative. Patient will be admitted to medicine due to the possible DKA with other acid base disturbance. UA and UDS pending at the time of admission. He was started on the diabetic ketoacidosis protocol with IV fluids and insulin. This case was discussed in detail with the attending ED physician. Presentation, findings, and treatment plan discussed in detail as well. - Lab Data Result diagrams: 03/09/22 13:44 03/09/22 13:44 Lab Results 03/09/22 03/09/22 03/09/22 Range/Units 13:44 13:44 13:44 WBC 10.8 H (3.8-10.6) k/uL RBC 5.62 (4.30-5.90) m/uL Hgb 18.0 H D (13.0-17.5) gm/dL Hct 50.1 (39.0-53.0) % MCV 89.2 (80.0-100.0) fL MCH 32.1 (25.0-35.0) pg MCHC 36.0 (31.0-37.0) g/dL RDW 12.2 (11.5-15.5) % Plt Count 352 (150-450) k/uL MPV 7.8 Neutrophils % 77 % Lymphocytes % 15 % Monocytes % 5 % Eosinophils % 0 % Basophils % 0 % Neutrophils # 8.3 H (1.3-7.7) k/uL Lymphocytes # 1.6 (1.0-4.8) k/uL Monocytes # 0.6 (0-1.0) k/uL Eosinophils # 0.0 (0-0.7) k/uL Basophils # 0.0 (0-0.2) k/uL PT 11.3 (9.0-12.0) sec INR 1.1 (<1.2) APTT 23.4 (22.0-30.0) sec D-Dimer 0.26 (<0.60) mg/L FEU VBG pH (7.31-7.41) VBG pCO2 (37-51) mmHg VBG HCO3 (24-28) mmol/L Sodium 133 L (137-145) mmol/L Potassium 3.8 (3.5-5.1) mmol/L Chloride 89 L (98-107) mmol/L Carbon Dioxide 13 L (22-30) mmol/L Anion Gap 31 mmol/L BUN 17 (9-20) mg/dL Creatinine 0.93 (0.66-1.25) mg/dL Est GFR (CKD-EPI)AfAm >90 (>60 ml/min/1.73 sqM) Est GFR (CKD-EPI)NonAf >90 (>60 ml/min/1.73 sqM) Glucose 345 H (74-99) mg/dL Calcium 9.1 (8.4-10.2) mg/dL Total Bilirubin 1.4 H (0.2-1.3) mg/dL AST 14 L (17-59) U/L ALT 13 (4-49) U/L Alkaline Phosphatase 101 (38-126) U/L Troponin I (0.000-0.034) ng/mL Total Protein 7.3 (6.3-8.2) g/dL Albumin 5.1 H (3.5-5.0) g/dL Acetone, Qual Positive (Negative) Coronavirus (PCR) (Not Detectd) Influenza Type A RNA (Not Detectd) Influenza Type B (PCR) (Not Detectd) 03/09/22 03/09/22 03/09/22 Range/Units 13:44 13:44 13:44 WBC (3.8-10.6) k/uL RBC (4.30-5.90) m/uL Hgb (13.0-17.5) gm/dL Hct (39.0-53.0) % MCV (80.0-100.0) fL MCH (25.0-35.0) pg MCHC (31.0-37.0) g/dL RDW (11.5-15.5) % Plt Count (150-450) k/uL MPV Neutrophils % % Lymphocytes % % Monocytes % % Eosinophils % % Basophils % % Neutrophils # (1.3-7.7) k/uL Lymphocytes # (1.0-4.8) k/uL Monocytes # (0-1.0) k/uL Eosinophils # (0-0.7) k/uL Basophils # (0-0.2) k/uL PT (9.0-12.0) sec INR (<1.2) APTT (22.0-30.0) sec D-Dimer (<0.60) mg/L FEU VBG pH (7.31-7.41) VBG pCO2 (37-51) mmHg VBG HCO3 (24-28) mmol/L Sodium (137-145) mmol/L Potassium (3.5-5.1) mmol/L Chloride (98-107) mmol/L Carbon Dioxide (22-30) mmol/L Anion Gap mmol/L BUN (9-20) mg/dL Creatinine (0.66-1.25) mg/dL Est GFR (CKD-EPI)AfAm (>60 ml/min/1.73 sqM) Est GFR (CKD-EPI)NonAf (>60 ml/min/1.73 sqM) Glucose (74-99) mg/dL Calcium (8.4-10.2) mg/dL Total Bilirubin (0.2-1.3) mg/dL AST (17-59) U/L ALT (4-49) U/L Alkaline Phosphatase (38-126) U/L Troponin I <0.012 (0.000-0.034) ng/mL Total Protein (6.3-8.2) g/dL Albumin (3.5-5.0) g/dL Acetone, Qual (Negative) Coronavirus (PCR) Not Detected (Not Detectd) Influenza Type A RNA Not Detected (Not Detectd) Influenza Type B (PCR) Not Detected (Not Detectd) 03/09/22 Range/Units 15:21 WBC (3.8-10.6) k/uL RBC (4.30-5.90) m/uL Hgb (13.0-17.5) gm/dL Hct (39.0-53.0) % MCV (80.0-100.0) fL MCH (25.0-35.0) pg MCHC (31.0-37.0) g/dL RDW (11.5-15.5) % Plt Count (150-450) k/uL MPV Neutrophils % % Lymphocytes % % Monocytes % % Eosinophils % % Basophils % % Neutrophils # (1.3-7.7) k/uL Lymphocytes # (1.0-4.8) k/uL Monocytes # (0-1.0) k/uL Eosinophils # (0-0.7) k/uL Basophils # (0-0.2) k/uL PT (9.0-12.0) sec INR (<1.2) APTT (22.0-30.0) sec D-Dimer (<0.60) mg/L FEU VBG pH 7.45 H (7.31-7.41) VBG pCO2 17 L* (37-51) mmHg VBG HCO3 12 L (24-28) mmol/L Sodium (137-145) mmol/L Potassium (3.5-5.1) mmol/L Chloride (98-107) mmol/L Carbon Dioxide (22-30) mmol/L Anion Gap mmol/L BUN (9-20) mg/dL Creatinine (0.66-1.25) mg/dL Est GFR (CKD-EPI)AfAm (>60 ml/min/1.73 sqM) Est GFR (CKD-EPI)NonAf (>60 ml/min/1.73 sqM) Glucose (74-99) mg/dL Calcium (8.4-10.2) mg/dL Total Bilirubin (0.2-1.3) mg/dL AST (17-59) U/L ALT (4-49) U/L Alkaline Phosphatase (38-126) U/L Troponin I (0.000-0.034) ng/mL Total Protein (6.3-8.2) g/dL Albumin (3.5-5.0) g/dL Acetone, Qual (Negative) Coronavirus (PCR) (Not Detectd) Influenza Type A RNA (Not Detectd) Influenza Type B (PCR) (Not Detectd) - EKG Data EKG Comments: Sinus tachycardia. Right atrial enlargement. Ventricular rate 116 bpm, SC inte rval 150 ms, QRS duration 92 ms, QTC 413 ms. - Radiology Data Radiology results: report reviewed, image reviewed Disposition Clinical Impression: DKA (diabetic ketoacidoses) Disposition: ADMITTED IP TO THIS HOSP
[2022-03-09 14:12] LABS: Basophils % (A) 0 %; Eosinophils % (A) 0 %; HCT 50.1 % (39.0-53.0); Lymphocytes # (A) 1.6 k/uL (1.0-4.8); Lymphocytes % (A) 15 %; MCH 32.1 pg (25.0-35.0); MCV 89.2 fL (80.0-100.0); Mean Platelet Volume 7.8; Monocytes # (A) 0.6 k/uL (0-1.0); Monocytes % (A) 5 %; Neutrophils # (A) 8.3 k/uL (1.3-7.7); Neutrophils % (A) 77 %; Platelet Count 352 k/uL (150-450); RBC 5.62 m/uL (4.30-5.90); RDW 12.2 % (11.5-15.5); WBC 10.8 k/uL (3.8-10.6)
[2022-03-09 14:22] LABS: ALT 13 U/L (4-49); AST 14 U/L (17-59); African American GFR (CKD) >90 (>60 ml/min/1.73 sqM); Albumin 5.1 g/dL (3.5-5.0); Alkaline Phosphatase 101 U/L (38-126); Anion Gap 31 mmol/L; Blood Urea Nitrogen 17 mg/dL (9-20); Calcium 9.1 mg/dL (8.4-10.2); Carbon Dioxide 13 mmol/L (22-30); Chloride 89 mmol/L (98-107); Glucose 345 mg/dL (74-99); Non-African American GFR(CKD) >90 (>60 ml/min/1.73 sqM); Potassium 3.8 mmol/L (3.5-5.1); Sodium 133 mmol/L (137-145); Total Bilirubin 1.4 mg/dL (0.2-1.3); Total Protein 7.3 g/dL (6.3-8.2)
[2022-03-09 14:30] LABS: INR 1.1 (<1.2); Partial Thromboplastin Time 23.4 sec (22.0-30.0); Prothrombin Time 11.3 sec (9.0-12.0)
--- NOTE | 2022-03-09 15:16 | XR ---
EXAMINATION TYPE: XR chest 2V DATE OF EXAM: 03/09/2022 2:23 PM COMPARISON: Chest x-ray 11/25/2021, chest x-ray 10/27/2021 TECHNIQUE: XR chest 2V . CLINICAL INDICATION:Male, 26 years old with history of difficulty breathing; FINDINGS: Lungs/Pleura: There is no evidence of pleural effusion, focal consolidation, or pneumothorax. Pulmonary vascularity: Unremarkable. Heart/mediastinum: Cardiomediastinal silhouette is unremarkable. Musculoskeletal: No acute osseous pathology. IMPRESSION: No acute cardiopulmonary disease/process.
[2022-03-09 15:24] LABS: VBG PH 7.45 (7.31-7.41)
[2022-03-09] MEDS: SODIUM CHLORIDE 0.9% 1,000 ML IV SCH ×2 (16:14→20:05)
[2022-03-09] MEDS ORDERED: NALOXONE 0.4 MG/ML 1 ML VIAL IV PRN (16:15)
[2022-03-09] MEDS ORDERED: IBUPROFEN 400 MG TAB PO PRN (16:15)
[2022-03-09] MEDS: INSULIN REGULAR 100 UNIT in SODIUM CHLORIDE 0.9% 100 ML IV SCH (16:15)
[2022-03-09] MEDS ORDERED: ONDANSETRON 4 MG/2 ML VIAL IVP PRN (16:15)
[2022-03-09] MEDS ORDERED: KETOROLAC 15 MG/ML 1 ML VIAL IVP PRN (16:15)
[2022-03-09] MEDS ORDERED: ACETAMINOPHEN TAB 325 MG TAB PO PRN (16:15)
[2022-03-09 16:19] LABS: Glucose,Whole Blood 312 mg/dL (70-110)
[2022-03-09 17:17] LABS: Glucose,Whole Blood 280 mg/dL (70-110)
[2022-03-09] MEDS: D5-0.45% NACL WITH KCL 20MEQ/L 1,000 ML IV SCH (17:37)
[2022-03-09 17:45] LABS: African American GFR (CKD) >90 (>60 ml/min/1.73 sqM); Anion Gap 27 mmol/L; Blood Urea Nitrogen 17 mg/dL (9-20); Carbon Dioxide 13 mmol/L (22-30); Chloride 95 mmol/L (98-107); Glucose 267 mg/dL (74-99); Non-African American GFR(CKD) >90 (>60 ml/min/1.73 sqM); Potassium 3.5 mmol/L (3.5-5.1); Sodium 135 mmol/L (137-145)
[2022-03-09] MEDS ORDERED: METOCLOPRAMIDE 5 MG/ML 2 ML VIAL IVP PRN (17:47)
[2022-03-09 18:16] LABS: Glucose,Whole Blood 210 mg/dL (70-110)
[2022-03-09 19:05] LABS: Glucose,Whole Blood 149 mg/dL (70-110)
[2022-03-09 19:58] LABS: Glucose,Whole Blood 122 mg/dL (70-110)
[2022-03-09 20:58] LABS: Glucose,Whole Blood 120 mg/dL (70-110)
[2022-03-09 22:06] LABS: Glucose,Whole Blood 141 mg/dL (70-110)
[2022-03-09 22:18] LABS: African American GFR (CKD) >90 (>60 ml/min/1.73 sqM); Anion Gap 17 mmol/L; Blood Urea Nitrogen 18 mg/dL (9-20); Carbon Dioxide 23 mmol/L (22-30); Chloride 93 mmol/L (98-107); Glucose 131 mg/dL (74-99); Non-African American GFR(CKD) >90 (>60 ml/min/1.73 sqM); Phosphorus 2.9 mg/dL (2.5-4.5); Potassium 4.1 mmol/L (3.5-5.1); Sodium 133 mmol/L (137-145)
[2022-03-09 23:03] LABS: Glucose,Whole Blood 201 mg/dL (70-110)
[2022-03-09 23:36] VITALS: TEMP 98
[2022-03-09 23:58] LABS: Glucose,Whole Blood 199 mg/dL (70-110)
[2022-03-10] MEDS: D5-0.45% NACL WITH KCL 20MEQ/L 1,000 ML IV SCH ×2 (00:52→10:30)
[2022-03-10 00:58] LABS: Glucose,Whole Blood 205 mg/dL (70-110)
[2022-03-10 01:58] LABS: Glucose,Whole Blood 202 mg/dL (70-110)
[2022-03-10 02:17] LABS: Potassium 3.9 mmol/L (3.5-5.1)
[2022-03-10 02:18] LABS: African American GFR (CKD) >90 (>60 ml/min/1.73 sqM); Anion Gap 16 mmol/L; Blood Urea Nitrogen 17 mg/dL (9-20); Calcium 8.9 mg/dL (8.4-10.2); Carbon Dioxide 23 mmol/L (22-30); Chloride 91 mmol/L (98-107); Glucose 223 mg/dL (74-99); Non-African American GFR(CKD) >90 (>60 ml/min/1.73 sqM); Phosphorus 3.6 mg/dL (2.5-4.5); Sodium 130 mmol/L (137-145)
[2022-03-10] MEDS: SODIUM CHLORIDE 0.9% 1,000 ML IV SCH ×2 (02:43→05:55)
[2022-03-10 02:59] LABS: Glucose,Whole Blood 205 mg/dL (70-110)
[2022-03-10 04:59] LABS: Glucose,Whole Blood 275 mg/dL (70-110)
[2022-03-10 05:53] LABS: Glucose,Whole Blood 263 mg/dL (70-110)
[2022-03-10 06:18] LABS: African American GFR (CKD) >90 (>60 ml/min/1.73 sqM); Anion Gap 16 mmol/L; Blood Urea Nitrogen 15 mg/dL (9-20); Calcium 8.7 mg/dL (8.4-10.2); Carbon Dioxide 24 mmol/L (22-30); Chloride 90 mmol/L (98-107); Glucose 291 mg/dL (74-99); Non-African American GFR(CKD) >90 (>60 ml/min/1.73 sqM); Potassium 4.1 mmol/L (3.5-5.1); Sodium 130 mmol/L (137-145)
[2022-03-10] MEDS: INSULIN REGULAR 100 UNIT in SODIUM CHLORIDE 0.9% 100 ML IV SCH ×2 (07:00→08:44)
[2022-03-10 07:01] LABS: Glucose,Whole Blood 267 mg/dL (70-110)
[2022-03-10 08:19] LABS: Glucose,Whole Blood 237 mg/dL (70-110)
[2022-03-10 09:13] LABS: Glucose,Whole Blood 203 mg/dL (70-110)
[2022-03-10] MEDS ORDERED: INSULIN DETEMIR (LEVEMIR) 100 UNIT/ML SYR SQ SCH (09:45)
[2022-03-10] MEDS ORDERED: ERGOCALCIFEROL 1,250 MCG (50,000 IU) CAPSULE PO SCH (10:00)
[2022-03-10 10:40] LABS: African American GFR (CKD) >90 (>60 ml/min/1.73 sqM); Anion Gap 8 mmol/L; Blood Urea Nitrogen 13 mg/dL (9-20); Calcium 8.3 mg/dL (8.4-10.2); Carbon Dioxide 27 mmol/L (22-30); Chloride 92 mmol/L (98-107); Glucose 207 mg/dL (74-99); Non-African American GFR(CKD) >90 (>60 ml/min/1.73 sqM); Potassium 3.5 mmol/L (3.5-5.1); Sodium 127 mmol/L (137-145)
[2022-03-10 11:42] LABS: Glucose,Whole Blood 233 mg/dL (70-110)
[2022-03-10] MEDS: INSULIN ASPART (NovoLOG) 100 UNIT/ML VIAL SQ SCH ×2 (12:09→16:49)
[2022-03-10 15:35] VITALS: RESP 16
[2022-03-10 15:53] VITALS: BP 130/80; PULSE 109
[2022-03-10] MEDS ORDERED: GABAPENTIN 300 MG CAP PO SCH (16:00)
[2022-03-10 16:37] LABS: Glucose,Whole Blood 312 mg/dL (70-110)
--- NOTE | 2022-03-10 22:42 | HP ---
HISTORY AND PHYSICAL CHIEF COMPLAINT: Dehydration, nausea, vomiting, and DKA. HISTORY OF PRESENT ILLNESS: This is another admission for this 26-year-old white male. He is discharged 2 days ago for treatment for the same thing. He went home and did not take his insulin. He came back in diabetic ketoacidosis. REVIEW OF SYSTEMS: He vomited once, but he is not vomiting as much as usual. He has had no chest pain, shortness of breath, or abdominal pain. Past medical history, family history, personal and social histories are all otherwise unremarkable, unchanged, or otherwise unobtainable. PHYSICAL EXAMINATION: VITAL SIGNS: Blood pressure is 110/55 with the pulse of 105, respirations of 40, and he is afebrile. GENERAL: He appeared to be dehydrated and weak. He was more alert when he came in last time. HEAD, EARS, EYES, NOSE, MOUTH AND THROAT: Normal except for dry mucous membranes. NECK: Supple. CHEST: Clear. CARDIAC: Normal. ABDOMEN: Flat, soft and nontender, and there were no masses or visceromegaly. Bowel sounds are present. EXTREMITIES: Normal. NEUROLOGICAL: He is intact. IMPRESSION: 1. Diabetic ketoacidosis. 2. Noncompliant type 1 insulin-dependent diabetic. 3. Alcohol abuse. 4. Depression. PLAN: 1. Bed rest. 2. IV fluids. 3. DKA protocol again. MMODL / IJN: [id number] /
--- NOTE | 2022-03-10 22:57 | HP ---
HISTORY AND PHYSICAL CHIEF COMPLAINT: DKA. HISTORY OF PRESENT ILLNESS: This is another admission for this young man, who just went home several days ago after being treated for DKA. He went home and once again, failed to take his insulin. REVIEW OF SYSTEMS: He is having some nausea and vomiting, but not as persistent as when he came in last time. He has had no chest pain, abdominal pain, fever, chills, etc. Past medical history, family history, and personal and social histories are all otherwise unremarkable, noncontributory, or unchanged. He does smoke and he abuses alcohol. PHYSICAL EXAMINATION: VITAL SIGNS: His blood pressure is 105/55 with a pulse of 104, respirations of 14, and he is afebrile. GENERAL: He appeared to be weak, pale, and dehydrated. HEAD, EARS, EYES, NOSE, MOUTH, AND THROAT: Normal. NECK: Veins are not distended. CHEST: Clear. CARDIAC: Normal except for tachycardia. ABDOMEN: Flat, soft and nontender. No masses or visceromegaly. Bowel sounds present. EXTREMITIES: Normal. NEUROLOGICAL: He is intact. ASSESSMENT: He is admitted to the hospital with diagnoses: 1. Diabetic ketoacidosis. 2. Type 1 insulin-dependent diabetes mellitus. 3. Noncompliant patient. 4. Dehydration. 5. History of depression. PLAN: 1. Bedrest. 2. IV fluids. 3. DKA protocol. MMODL / IJN: [id number] /
--- NOTE | 2022-03-12 11:41 | DS ---
DISCHARGE SUMMARY CHIEF COMPLAINT: Diabetic ketoacidosis. HISTORY OF PRESENT ILLNESS AND PHYSICAL EXAMINATION: Details of this man's history and physical can be found in the initial workup. LABORATORY STUDIES: While he was in the hospital, he had laboratory studies, details of which can be found in the laboratory section of his chart. COURSE IN THE HOSPITAL: After admission, he was placed on bedrest, started on intravenous fluids and included his blood sugar, i.e., anion gap and electrolyte findings. COURSE IN THE HOSPITAL: After admission, he was placed on bedrest, started on intravenous fluids and placed back on the DKA protocol. He did well. He was not having a lot of trouble with abdominal pain and vomiting this time. He was doing well and then he signed himself out against medical advice on the . FINAL DIAGNOSES: 1. Diabetic ketoacidosis. 2. Uncontrolled type 1 insulin-dependent diabetes mellitus due to noncompliance. 3. Gastroparesis. 4. Depression. OPERATIONS: None. CONSULTATION: None. He is improved. MMBIANCA / TRAMN: [id number] /
== END 2022-03-10 18:21 | disposition home or self-care (01) ==
LOC: EC 13:14 → INTOOBSV 15:49 → 3SCARD 15:49 → UNDODISIN 03-10 18:21
PROVIDERS: ADMIT Family Medicine; ATTEND Family Medicine
DX: E10.10 Type 1 diabetes mellitus with ketoacidosis without coma (principal); E86.0 Dehydration; E10.43 Type 1 diabetes mellitus with diabetic autonomic (poly)neuropathy; K31.84 Gastroparesis; J45.909 Unspecified asthma, uncomplicated; E10.42 Type 1 diabetes mellitus with diabetic polyneuropathy; Z91.199 Patient's noncompliance with other medical treatment and regimen due to unspecified reason; F10.10 Alcohol abuse, uncomplicated; F32.A Depression, unspecified; F41.9 Anxiety disorder, unspecified; L30.9 Dermatitis, unspecified; Z20.822 Contact with and (suspected) exposure to COVID-19; Z79.4 Long term (current) use of insulin; Z79.899 Other long term (current) drug therapy; Z98.890 Other specified postprocedural states; Z82.3 Family history of stroke; Z82.49 Family history of ischemic heart disease and other diseases of the circulatory system; Z83.49 Family history of other endocrine, nutritional and metabolic diseases
CPT/HCPCS: 96365; 96366; 96361; 99285; 36415; 94640; 93005; 85379; 80051; 80053; 80048; 82565; 82803; 82009; 83605; 84100 ×2; 82947; 84520; 84484; 85025; 85610; 85730; 87502; 87635; 71046; G0378 ×2

== ENCOUNTER 2022-03-14 15:56 | Observation (INO) | payer OTHER ==
[2022-03-14 16:07] LABS: Glucose,Whole Blood 489 mg/dL (70-110)
[2022-03-14] MEDS ORDERED: SODIUM CHLORIDE 0.9% 1,000 ML IV ONE ×2 (16:08)
[2022-03-14 16:45] LABS: Basophils # (A) 0.1 k/uL (0-0.2); Basophils % (A) 1 %; Eosinophils % (A) 0 %; HCT 44.7 % (39.0-53.0); HGB 15.5 gm/dL (13.0-17.5); Lymphocytes # (A) 1.5 k/uL (1.0-4.8); Lymphocytes % (A) 11 %; MCH 32.4 pg (25.0-35.0); MCHC 34.6 g/dL (31.0-37.0); MCV 93.6 fL (80.0-100.0); Mean Platelet Volume 7.7; Monocytes # (A) 0.4 k/uL (0-1.0); Monocytes % (A) 3 %; Neutrophils # (A) 11.7 k/uL (1.3-7.7); Neutrophils % (A) 85 %; Platelet Count 412 k/uL (150-450); RBC 4.77 m/uL (4.30-5.90); RDW 12.4 % (11.5-15.5); WBC 13.8 k/uL (3.8-10.6)
[2022-03-14 17:05] LABS: ALT 22 U/L (4-49); AST 18 U/L (17-59); African American GFR (CKD) >90 (>60 ml/min/1.73 sqM); Albumin 4.7 g/dL (3.5-5.0); Alkaline Phosphatase 89 U/L (38-126); Anion Gap 31 mmol/L; Blood Urea Nitrogen 16 mg/dL (9-20); Calcium 9.4 mg/dL (8.4-10.2); Chloride 101 mmol/L (98-107); Non-African American GFR(CKD) >90 (>60 ml/min/1.73 sqM); Potassium 5.1 mmol/L (3.5-5.1); Sodium 141 mmol/L (137-145); Total Bilirubin 0.5 mg/dL (0.2-1.3); Total Protein 6.6 g/dL (6.3-8.2)
--- NOTE | 2022-03-14 17:05 | ED ---
General Adult HPI - General Chief complaint: Recheck/Abnormal Lab/Rx Stated complaint: DKA Time Seen by Provider: 03/14/22 16:05 Source: patient, EMS Mode of arrival: EMS - History of Present Illness Initial comments: 26-year-old type I diabetic who presents emergency Department with nausea vomiting and hyperglycemia. Patient has been seen in our emergency room several times for same complaint. Patient is noncompliant by history. He presents with nausea vomiting and inability to provide any history. No reported fevers. He states he has been taking his medications as directed. HPI is limited - Related Data Home Medications Medication Instructions Recorded Confirmed INSULIN ASPART (NovoLOG) [NovoLOG 10 unit SQ AC-TID 06/29/21 03/14/22 (formulary)] Ergocalciferol (Vitamin D2) 1,250 mcg PO Q30D 12/19/21 03/14/22 [Drisdol (50,000 Iu)] Gabapentin 600 mg PO TID 12/19/21 03/14/22 Previous Rx's Medication Instructions Recorded Metoclopramide [Reglan] 10 mg PO TID PRN #15 tab 12/03/21 Insulin Detemir (Levemir) [Levemir] 25 unit SQ HS #90 each 03/16/22 Allergies Allergy/AdvReac Type Severity Reaction Status Date / Time No Known Allergies Allergy Verified 03/14/22 19:40 Review of Systems ROS Statement: Those systems with pertinent positive or pertinent negative responses have been documented in the HPI. ROS Other: All systems not noted in ROS Statement are negative. Past Medical History Past Medical History: Asthma, Diabetes Mellitus, Neurologic Disorder, Skin Disorder Additional Past Medical History / Comment(s): IDDM type I, neuropathy bilateral feet, DKA, eczema. History of Any Multi-Drug Resistant Organisms: None Reported Past Surgical History: Adenoidectomy Additional Past Surgical History / Comment(s): 2002 Past Anesthesia/Blood Transfusion Reactions: No Reported Reaction Past Psychological History: Anxiety, Depression Smoking Status: Never smoker Past Alcohol Use History: Occasional Past Drug Use History: Marijuana - Past Family History Mother Family Medical History: CVA/TIA Additional Family Medical History / Comment(s): TIA Father Family Medical History: Hyperlipidemia, Hypertension Additional Family Medical History / Comment(s): . General Exam Limitations: altered mental status General appearance: alert Head exam: Present: atraumatic, normocephalic, normal inspection Eye exam: Present: normal appearance, PERRL, EOMI. Absent: scleral icterus, conjunctival injection, periorbital swelling ENT exam: Present: normal exam, mucous membranes dry Neck exam: Present: normal inspection. Absent: tenderness, meningismus, lymphadenopathy Respiratory exam: Present: normal lung sounds bilaterally. Absent: respiratory distress, wheezes, rales, rhonchi, stridor Cardiovascular Exam: Present: normal rhythm, tachycardia, normal heart sounds. Absent: systolic murmur, diastolic murmur, rubs, gallop, clicks GI/Abdominal exam: Present: soft, normal bowel sounds. Absent: distended, tenderness, guarding, rebound, rigid Extremities exam: Present: normal inspection, full ROM, normal capillary refill. Absent: tenderness, pedal edema, joint swelling, calf tenderness Back exam: Present: normal inspection Neurological exam: Present: alert, oriented X3, CN II-XII intact Psychiatric exam: Present: flat affect Skin exam: Present: warm, dry, intact, normal color. Absent: rash Course Vital Signs 03/14/22 03/14/22 03/14/22 16:01 17:45 19:43 Temperature 97.2 F L 97.8 F Pulse Rate 118 H 127 H 133 H Respiratory 22 20 26 H Rate Blood Pressure 140/84 106/63 126/92 O2 Sat by Pulse 100 98 100 Oximetry EKG Findings - EKG Comments: EKG Findings:: EKG demonstrates sinus tach with a rate of 125. RI interval 184. QRS 90. QTC 393. No acute ST segment elevations or depressions Medical Decision Making - Medical Decision Making Upon arrival patient was placed into room 7. IV is established. Patient given 2 L bolus normal saline. Laboratory studies are conducted. CO2 9. Anion gap 31. Glucose 563. Patient is initiated on an insulin drip. Called and spoke with Dr. Valenzuela who agreed to admit the patient. - Lab Data Result diagrams: 03/14/22 16:21 03/15/22 21:10 Lab Results 03/14/22 03/14/22 03/14/22 Range/Units 16:05 16:21 16:21 WBC 13.8 H (3.8-10.6) k/uL RBC 4.77 (4.30-5.90) m/uL Hgb 15.5 (13.0-17.5) gm/dL Hct 44.7 (39.0-53.0) % MCV 93.6 (80.0-100.0) fL MCH 32.4 (25.0-35.0) pg MCHC 34.6 (31.0-37.0) g/dL RDW 12.4 (11.5-15.5) % Plt Count 412 (150-450) k/uL MPV 7.7 Neutrophils % 85 % Lymphocytes % 11 % Monocytes % 3 % Eosinophils % 0 % Basophils % 1 % Neutrophils # 11.7 H (1.3-7.7) k/uL Lymphocytes # 1.5 (1.0-4.8) k/uL Monocytes # 0.4 (0-1.0) k/uL Eosinophils # 0.0 (0-0.7) k/uL Basophils # 0.1 (0-0.2) k/uL PT 10.7 (9.0-12.0) sec INR 1.0 (<1.2) APTT 22.2 (22.0-30.0) sec Sodium (137-145) mmol/L Potassium (3.5-5.1) mmol/L Chloride (98-107) mmol/L Carbon Dioxide (22-30) mmol/L Anion Gap mmol/L BUN (9-20) mg/dL Creatinine (0.66-1.25) mg/dL Est GFR (CKD-EPI)AfAm (>60 ml/min/1.73 sqM) Est GFR (CKD-EPI)NonAf (>60 ml/min/1.73 sqM) Glucose (74-99) mg/dL POC Glucose (mg/dL) 489 H (70-110) mg/dL POC Glu Stick Welder ID NjFlorencioBrandee Calcium (8.4-10.2) mg/dL Total Bilirubin (0.2-1.3) mg/dL AST (17-59) U/L ALT (4-49) U/L Alkaline Phosphatase (38-126) U/L Troponin I (0.000-0.034) ng/mL Total Protein (6.3-8.2) g/dL Albumin (3.5-5.0) g/dL Urine Color Urine Appearance (Clear) Urine pH (5.0-8.0) Ur Specific [place] (1.001-1.035) Urine Protein (Negative) Urine Glucose (UA) (Negative) Urine Ketones (Negative) Urine Blood (Negative) Urine Nitrite (Negative) Urine Bilirubin (Negative) Urine Urobilinogen (<2.0) mg/dL Ur Leukocyte Esterase (Negative) Acetone, Qual (Negative) 03/14/22 03/14/22 03/14/22 Range/Units 16:21 16:21 16:21 WBC (3.8-10.6) k/uL RBC (4.30-5.90) m/uL Hgb (13.0-17.5) gm/dL Hct (39.0-53.0) % MCV (80.0-100.0) fL MCH (25.0-35.0) pg MCHC (31.0-37.0) g/dL RDW (11.5-15.5) % Plt Count (150-450) k/uL MPV Neutrophils % % Lymphocytes % % Monocytes % % Eosinophils % % Basophils % % Neutrophils # (1.3-7.7) k/uL Lymphocytes # (1.0-4.8) k/uL Monocytes # (0-1.0) k/uL Eosinophils # (0-0.7) k/uL Basophils # (0-0.2) k/uL PT (9.0-12.0) sec INR (<1.2) APTT (22.0-30.0) sec Sodium 141 (137-145) mmol/L Potassium 5.1 (3.5-5.1) mmol/L Chloride 101 (98-107) mmol/L Carbon Dioxide 9 L* (22-30) mmol/L Anion Gap 31 mmol/L BUN 16 (9-20) mg/dL Creatinine 0.88 (0.66-1.25) mg/dL Est GFR (CKD-EPI)AfAm >90 (>60 ml/min/1.73 sqM) Est GFR (CKD-EPI)NonAf >90 (>60 ml/min/1.73 sqM) Glucose 563 H* (74-99) mg/dL POC Glucose (mg/dL) (70-110) mg/dL POC Glu Stick Welder ID Calcium 9.4 (8.4-10.2) mg/dL Total Bilirubin 0.5 (0.2-1.3) mg/dL AST 18 (17-59) U/L ALT 22 (4-49) U/L Alkaline Phosphatase 89 (38-126) U/L Troponin I <0.012 (0.000-0.034) ng/mL Total Protein 6.6 (6.3-8.2) g/dL Albumin 4.7 (3.5-5.0) g/dL Urine Color Colorless Urine Appearance Clear (Clear) Urine pH 5.5 (5.0-8.0) Ur Specific [place] 1.028 (1.001-1.035) Urine Protein Negative (Negative) Urine Glucose (UA) 4+ H (Negative) Urine Ketones 4+ H (Negative) Urine Blood Negative (Negative) Urine Nitrite Negative (Negative) Urine Bilirubin Negative (Negative) Urine Urobilinogen <2.0 (<2.0) mg/dL Ur Leukocyte Esterase Negative (Negative) Acetone, Qual Positive (Negative) 03/14/22 Range/Units 17:54 WBC (3.8-10.6) k/uL RBC (4.30-5.90) m/uL Hgb (13.0-17.5) gm/dL Hct (39.0-53.0) % MCV (80.0-100.0) fL MCH (25.0-35.0) pg MCHC (31.0-37.0) g/dL RDW (11.5-15.5) % Plt Count (150-450) k/uL MPV Neutrophils % % Lymphocytes % % Monocytes % % Eosinophils % % Basophils % % Neutrophils # (1.3-7.7) k/uL Lymphocytes # (1.0-4.8) k/uL Monocytes # (0-1.0) k/uL Eosinophils # (0-0.7) k/uL Basophils # (0-0.2) k/uL PT (9.0-12.0) sec INR (<1.2) APTT (22.0-30.0) sec Sodium (137-145) mmol/L Potassium (3.5-5.1) mmol/L Chloride (98-107) mmol/L Carbon Dioxide (22-30) mmol/L Anion Gap mmol/L BUN (9-20) mg/dL Creatinine (0.66-1.25) mg/dL Est GFR (CKD-EPI)AfAm (>60 ml/min/1.73 sqM) Est GFR (CKD-EPI)NonAf (>60 ml/min/1.73 sqM) Glucose (74-99) mg/dL POC Glucose (mg/dL) 410 H (70-110) mg/dL POC Glu Stick Welder ID Brandee [place] Calcium (8.4-10.2) mg/dL Total Bilirubin (0.2-1.3) mg/dL AST (17-59) U/L ALT (4-49) U/L Alkaline Phosphatase (38-126) U/L Troponin I (0.000-0.034) ng/mL Total Protein (6.3-8.2) g/dL Albumin (3.5-5.0) g/dL Urine Color Urine Appearance (Clear) Urine pH (5.0-8.0) Ur Specific [place] (1.001-1.035) Urine Protein (Negative) Urine Glucose (UA) (Negative) Urine Ketones (Negative) Urine Blood (Negative) Urine Nitrite (Negative) Urine Bilirubin (Negative) Urine Urobilinogen (<2.0) mg/dL Ur Leukocyte Esterase (Negative) Acetone, Qual (Negative) Critical Care Time Critical Care Time: Yes Critical Care Time: 35 minutes for DKA diagnosis and treatment Disposition Clinical Impression: DKA (diabetic ketoacidoses), Diabetic ketoacidosis associated with type 1 diabetes mellitus Disposition: ADMITTED IP TO THIS [facility] Condition: Serious Is patient prescribed a controlled substance at d/c from ED?: No Time of Disposition: 19:23 Decision to Admit Reason: Admit from EC Decision Date: 03/14/22 Decision Time: 19:23
[2022-03-14 17:17] LABS: Partial Thromboplastin Time 22.2 sec (22.0-30.0); Prothrombin Time 10.7 sec (9.0-12.0)
[2022-03-14 17:23] LABS: Carbon Dioxide 9 mmol/L (22-30); Glucose 563 mg/dL (74-99)
[2022-03-14 17:58] LABS: Glucose,Whole Blood 410 mg/dL (70-110)
[2022-03-14 18:36] LABS: Appearance,Urine Clear (Clear); Bilirubin,Urine Negative (Negative); Blood,Urine Negative (Negative); Color,Urine Colorless; Glucose,Urine (UA) 4+ (Negative); Leukocyte Esterase,Urine Negative (Negative); Nitrite,Urine Negative (Negative); PH, Urine 5.5 (5.0-8.0); Protein,Urine Negative (Negative); Specific Gravity,Urine 1.028 (1.001-1.035); Urobilinogen,Urine <2.0 mg/dL (<2.0)
[2022-03-14 18:43] LABS: Ketones,Urine 4+ (Negative)
[2022-03-14] MEDS ORDERED: Magnesium Replacement Protocol 1 EACH MISC MISCELLANE PRN (18:58)
[2022-03-14] MEDS ORDERED: Potassium Replacement Protocol 1 EACH MISC MISCELLANE PRN (18:58)
[2022-03-14] MEDS: SODIUM CHLORIDE 0.9% 1,000 ML IV SCH (19:44)
[2022-03-14] MEDS: INSULIN REGULAR 100 UNIT in SODIUM CHLORIDE 0.9% 100 ML IV SCH (20:05)
[2022-03-14 20:06] LABS: Glucose,Whole Blood 454 mg/dL (70-110)
[2022-03-14 20:40] LABS: Glucose,Whole Blood 444 mg/dL (70-110)
[2022-03-14 21:39] LABS: Glucose,Whole Blood 366 mg/dL (70-110)
[2022-03-14 22:19] LABS: African American GFR (CKD) >90 (>60 ml/min/1.73 sqM); Anion Gap 23 mmol/L; Blood Urea Nitrogen 15 mg/dL (9-20); Carbon Dioxide 10 mmol/L (22-30); Chloride 106 mmol/L (98-107); Glucose 494 mg/dL (74-99); Non-African American GFR(CKD) >90 (>60 ml/min/1.73 sqM); Phosphorus 4.1 mg/dL (2.5-4.5); Potassium 5.5 mmol/L (3.5-5.1); Sodium 139 mmol/L (137-145)
[2022-03-14 22:49] LABS: Glucose,Whole Blood 278 mg/dL (70-110)
[2022-03-14 23:51] LABS: Glucose,Whole Blood 301 mg/dL (70-110)
[2022-03-15 00:37] LABS: Glucose,Whole Blood 251 mg/dL (70-110)
[2022-03-15 01:24] LABS: African American GFR (CKD) >90 (>60 ml/min/1.73 sqM); Anion Gap 19 mmol/L; Blood Urea Nitrogen 15 mg/dL (9-20); Carbon Dioxide 13 mmol/L (22-30); Chloride 102 mmol/L (98-107); Glucose 253 mg/dL (74-99); Non-African American GFR(CKD) >90 (>60 ml/min/1.73 sqM); Potassium 5.2 mmol/L (3.5-5.1); Sodium 134 mmol/L (137-145)
[2022-03-15 01:49] LABS: Glucose,Whole Blood 185 mg/dL (70-110)
[2022-03-15 02:53] LABS: Glucose,Whole Blood 108 mg/dL (70-110)
[2022-03-15 03:48] LABS: Glucose,Whole Blood 88 mg/dL (70-110)
[2022-03-15 04:19] LABS: Glucose,Whole Blood 70 mg/dL (70-110)
[2022-03-15] MEDS: SODIUM CHLORIDE 0.9% 1,000 ML IV SCH ×5 (04:19→20:38)
[2022-03-15 04:58] LABS: Glucose,Whole Blood 87 mg/dL (70-110)
[2022-03-15 05:33] LABS: Glucose,Whole Blood 121 mg/dL (70-110)
[2022-03-15] MEDS: D5-0.45% NACL WITH KCL 20MEQ/L 1,000 ML IV SCH ×3 (06:04→17:56)
[2022-03-15 06:52] LABS: Glucose,Whole Blood 136 mg/dL (70-110)
[2022-03-15 07:40] LABS: Glucose,Whole Blood 118 mg/dL (70-110)
[2022-03-15 08:11] LABS: African American GFR (CKD) >90 (>60 ml/min/1.73 sqM); Anion Gap 12 mmol/L; Blood Urea Nitrogen 14 mg/dL (9-20); Carbon Dioxide 20 mmol/L (22-30); Chloride 103 mmol/L (98-107); Glucose 126 mg/dL (74-99); Non-African American GFR(CKD) >90 (>60 ml/min/1.73 sqM); Potassium 4.4 mmol/L (3.5-5.1); Sodium 135 mmol/L (137-145)
[2022-03-15 08:36] LABS: Glucose,Whole Blood 115 mg/dL (70-110)
[2022-03-15 09:29] LABS: Glucose,Whole Blood 147 mg/dL (70-110)
[2022-03-15 10:29] LABS: Glucose,Whole Blood 169 mg/dL (70-110)
[2022-03-15] MEDS: INSULIN REGULAR 100 UNIT in SODIUM CHLORIDE 0.9% 100 ML IV SCH (10:55)
[2022-03-15] MEDS ORDERED: METOCLOPRAMIDE 10 MG TAB PO PRN (11:31)
[2022-03-15 11:44] LABS: Glucose,Whole Blood 205 mg/dL (70-110)
[2022-03-15 12:16] LABS: African American GFR (CKD) >90 (>60 ml/min/1.73 sqM); Anion Gap 12 mmol/L; Blood Urea Nitrogen 13 mg/dL (9-20); Calcium 7.9 mg/dL (8.4-10.2); Carbon Dioxide 18 mmol/L (22-30); Chloride 102 mmol/L (98-107); Glucose 224 mg/dL (74-99); Non-African American GFR(CKD) >90 (>60 ml/min/1.73 sqM); Potassium 4.8 mmol/L (3.5-5.1); Sodium 132 mmol/L (137-145)
[2022-03-15 12:28] LABS: Glucose,Whole Blood 226 mg/dL (70-110)
[2022-03-15] MEDS: INSULIN ASPART (NovoLOG) 100 UNIT/ML VIAL SQ SCH ×2 (12:46→17:43)
[2022-03-15 14:17] VITALS: BMI 17.9
[2022-03-15 14:43] LABS: Glucose,Whole Blood 232 mg/dL (70-110)
[2022-03-15 16:22] LABS: Glucose,Whole Blood 184 mg/dL (70-110)
[2022-03-15 20:21] LABS: Glucose,Whole Blood 280 mg/dL (70-110)
[2022-03-15 21:20] LABS: ABG Base Excess -0.4 mmol/L; ABG HCO3 24 mmol/L (21-25); ABG Oxygen Saturation 96.5 % (94-97); ABG PCO2 36 mmHg (35-45); ABG PH 7.43 (7.35-7.45); ABG PO2 83 mmHg (83-108); ABG TCO2 25 mmol/L (19-24); Allen Test Performed? Yes
[2022-03-15 21:42] LABS: African American GFR (CKD) >90 (>60 ml/min/1.73 sqM); Anion Gap 10 mmol/L; Blood Urea Nitrogen 8 mg/dL (9-20); Carbon Dioxide 21 mmol/L (22-30); Chloride 93 mmol/L (98-107); Glucose 330 mg/dL (74-99); Non-African American GFR(CKD) >90 (>60 ml/min/1.73 sqM); Phosphorus 1.7 mg/dL (2.5-4.5); Sodium 124 mmol/L (137-145)
[2022-03-16] MEDS: SODIUM CHLORIDE 0.9% 1,000 ML IV SCH ×4 (01:34→16:38)
[2022-03-16] MEDS: D5-0.45% NACL WITH KCL 20MEQ/L 1,000 ML IV SCH ×3 (01:34→13:44)
[2022-03-16 03:49] LABS: Glucose,Whole Blood 255 mg/dL (70-110)
[2022-03-16 07:31] LABS: Glucose,Whole Blood 277 mg/dL (70-110)
[2022-03-16] MEDS: INSULIN ASPART (NovoLOG) 100 UNIT/ML VIAL SQ SCH ×3 (07:34→17:19)
[2022-03-16] MEDS ORDERED: INSULIN DETEMIR (LEVEMIR) 100 UNIT/ML SYR SQ SCH ×2 (09:00→21:00)
[2022-03-16 09:02] VITALS: RESP 16
[2022-03-16 11:56] LABS: Glucose,Whole Blood 352 mg/dL (70-110)
[2022-03-16 16:14] VITALS: BP 126/74; PULSE 110; TEMP 98.3
[2022-03-16 16:36] LABS: Glucose,Whole Blood 91 mg/dL (70-110)
--- NOTE | 2022-03-18 01:04 | DS ---
DISCHARGE SUMMARY CHIEF COMPLAINT: DKA. HISTORY OF PRESENT ILLNESS AND PHYSICAL EXAMINATION: Details of this man's history and physical can be found in the initial workup. LABORATORY STUDIES: While he was in the hospital, he had laboratory studies, details of which can be found in the laboratory section of his chart. COURSE IN THE HOSPITAL: After admission, he was placed on bedrest on intravenous fluids and DKA protocol. Blood sugars came down and his gap closed. Activity and diet were increased, he was doing well and it was felt that he could go home on the evening of the . He will be followed up in the office. His Levemir will be increased from 20 to 25 units a day. FINAL DIAGNOSIS: 1. Diabetic ketoacidosis. 2. Noncompliant type 1 insulin-dependent diabetic. 3. Noncompliant patient. 4. Peripheral neuropathy. 5. Gastroparesis. 6. Depression. OPERATIONS: None. CONSULTATIONS: None, he is improved. MMBIANCA / ALDEN: [id number] /
--- NOTE | 2022-03-19 03:42 | HP ---
HISTORY AND PHYSICAL CHIEF COMPLAINT: Diabetic ketoacidosis. HISTORY OF PRESENT ILLNESS: This is another admission for this 26-year-old noncompliant, homeless man. He has been in and out of the hospital almost 2 to 3 times a week now with DKA. He goes home, becomes depressed for one reason or another, and stops taking insulin and may or may not start drinking alcohol. He came back in again and diabetic ketoacidosis. REVIEW OF SYSTEMS: Quite lethargic, but he denies chest pain, headache, abdominal pain, etc. He has had no fever, chills. Past medical history, family history and personal and social histories are all otherwise unremarkable or noncontributory or unchanged. He does smoke good as well. PHYSICAL EXAMINATION: VITAL SIGNS: Blood pressure is 106/64 with a pulse of 108, respirations of 38 and he is afebrile. GENERAL: Appeared to be pale, dehydrated and lethargic. HEAD, EARS, EYES, NOSE, MOUTH AND THROAT: Normal except for dry mucous membranes. NECK: Supple. CHEST: Clear. CARDIAC: Exam demonstrated sinus tachycardia. ABDOMEN: Flat, soft and there are no masses or tenderness. EXTREMITIES: Normal. NEUROLOGIC: He is lethargic. IMPRESSION: 1. Diabetic ketoacidosis. 2. Noncompliant individual. 3. Type 1 insulin-dependent diabetes mellitus. 4. Gastroparesis. 5. Depression. PLAN: 1. Bedrest. 2. IV fluids. 3. Manage DKA. MMODL / IJN: [id number] /
--- NOTE | 2022-03-19 06:03 | PN ---
PROGRESS NOTE DATE OF SERVICE: 03/15/2022 CHIEF COMPLAINT: Diabetic ketoacidosis. HISTORY OF PRESENT ILLNESS: This gentleman is still quite lethargic. He is nauseated. He is lunch. Anion gap is still not closed. PHYSICAL EXAMINATION: GENERAL: He is dehydrated. LUNGS: He has good breath sounds bilaterally. CARDIAC: Normal. ABDOMEN: Flat and soft. NECK: Supple. HEENT: Pupils equal, round, and reactive. NEURO: He is still somewhat lethargic. Neurologically, he is intact. IMPRESSION: 1. Diabetic ketoacidosis. 2. Dehydration. 3. Metabolic acidosis. PLAN: Continue with IV fluids and insulin management. MMODL / IJN: [id number] /
== END 2022-03-16 17:28 | disposition home or self-care (01) ==
LOC: EC 15:56 → 3SCARD 19:24 → INTOOBSV 19:24 → 3SCARD 20:20 → UNDODISIN 03-16 17:28
PROVIDERS: ADMIT Family Medicine; ATTEND Family Medicine
DX: E10.10 Type 1 diabetes mellitus with ketoacidosis without coma (principal); J45.909 Unspecified asthma, uncomplicated; F41.9 Anxiety disorder, unspecified; F32.A Depression, unspecified; E10.42 Type 1 diabetes mellitus with diabetic polyneuropathy; E86.0 Dehydration; E10.43 Type 1 diabetes mellitus with diabetic autonomic (poly)neuropathy; K31.84 Gastroparesis; Z79.4 Long term (current) use of insulin; Z79.899 Other long term (current) drug therapy; Z82.3 Family history of stroke; Z82.49 Family history of ischemic heart disease and other diseases of the circulatory system; Z91.199 Patient's noncompliance with other medical treatment and regimen due to unspecified reason; Z59.00 Homelessness unspecified
CPT/HCPCS: 96366 ×2; 96361; 96365; 99291; 36415; 36600; 93005; 80051 ×2; 80053; 80048; 82565 ×2; 82805; 82009; 84100 ×2; 82947 ×2; 84520 ×2; 84484; 85025; 85610; 85730; 81003; G0378 ×3; 96360

== ENCOUNTER 2022-04-11 10:11 | Emergency (ER) | payer OTHER ==
[2022-04-11] MEDS ORDERED: SODIUM CHLORIDE 0.9% 2,000 ML IV STA (10:23)
[2022-04-11] MEDS ORDERED: ONDANSETRON 4 MG/2 ML VIAL IVP STA (10:23)
--- NOTE | 2022-04-11 10:32 | ED ---
General Adult HPI - General Chief complaint: Nausea/Vomiting/Diarrhea Stated complaint: Hyperglycemia Time Seen by Provider: 04/11/22 10:12 Source: patient, RN notes reviewed Mode of arrival: ambulatory Limitations: no limitations - History of Present Illness Initial comments: This a 26-year-old male presents emergency Department chief complaint of hyper glycemia. Patient presents with nausea vomiting, hyperglycemia and states that he drank alcohol last night states that he was mixing that with a canal. He states blood sugars been severely high. He complains of mild abdominal pain. Patient is a well-known patient emergency Department with a history of diabetes type 1. Patient denies any fevers or chills no cough or cold-like symptoms denies any dysuria or hematuria. - Related Data Home Medications Medication Instructions Recorded Confirmed INSULIN ASPART (NovoLOG) [NovoLOG 10 unit SQ AC-TID 06/29/21 04/11/22 (formulary)] Gabapentin 600 mg PO TID 12/19/21 04/11/22 Insulin Detemir (Levemir) [Levemir] 25 unit SQ DAILY 04/11/22 04/11/22 Allergies Allergy/AdvReac Type Severity Reaction Status Date / Time No Known Allergies Allergy Verified 04/11/22 12:01 Review of Systems ROS Statement: Those systems with pertinent positive or pertinent negative responses have been documented in the HPI. ROS Other: All systems not noted in ROS Statement are negative. Past Medical History Past Medical History: Asthma, Diabetes Mellitus, Neurologic Disorder, Skin Disorder Additional Past Medical History / Comment(s): IDDM type I, neuropathy bilateral feet, DKA, eczema. History of Any Multi-Drug Resistant Organisms: None Reported Past Surgical History: Adenoidectomy Additional Past Surgical History / Comment(s): 2002 Past Anesthesia/Blood Transfusion Reactions: No Reported Reaction Past Psychological History: Anxiety, Depression Smoking Status: Never smoker Past Alcohol Use History: Occasional Past Drug Use History: Marijuana - Past Family History Mother Family Medical History: CVA/TIA Additional Family Medical History / Comment(s): TIA Father Family Medical History: Hyperlipidemia, Hypertension Additional Family Medical History / Comment(s): . General Exam Limitations: no limitations General appearance: alert, in no apparent distress Head exam: Present: atraumatic, normocephalic, normal inspection Eye exam: Present: normal appearance, PERRL, EOMI. Absent: scleral icterus, conjunctival injection, periorbital swelling ENT exam: Present: normal exam, normal oropharynx, mucous membranes moist Neck exam: Present: normal inspection, full ROM. Absent: tenderness, meningismus, lymphadenopathy Respiratory exam: Present: normal lung sounds bilaterally. Absent: respiratory distress, wheezes, rales, rhonchi, stridor Cardiovascular Exam: Present: regular rate, normal rhythm, normal heart sounds. Absent: systolic murmur, diastolic murmur, rubs, gallop, clicks GI/Abdominal exam: Present: soft, normal bowel sounds. Absent: distended, tenderness, guarding, rebound, rigid Course Vital Signs 04/11/22 04/11/22 04/11/22 10:13 10:33 11:48 Temperature 97.6 F 97.9 F Pulse Rate 90 84 101 H Respiratory 18 16 20 Rate Blood Pressure 138/98 140/67 O2 Sat by Pulse 98 97 98 Oximetry Medical Decision Making - Medical Decision Making 26-year-old male presented for hyperglycemia. Patient was given fluid bolus, antiemetics feels greatly improved. Patient does have mild metabolic acidosis no blood sugars improved, symptoms are improved. Patient is requesting discharge and agrees with discharge. Return parameters were discussed - Lab Data Result diagrams: 04/11/22 10:26 04/11/22 10:26 Lab Results 04/11/22 04/11/22 04/11/22 Range/Units 10:26 10:26 10:26 WBC 11.7 H (3.8-10.6) k/uL RBC 4.72 (4.30-5.90) m/uL Hgb 14.9 (13.0-17.5) gm/dL Hct 43.1 (39.0-53.0) % MCV 91.3 (80.0-100.0) fL MCH 31.6 (25.0-35.0) pg MCHC 34.6 (31.0-37.0) g/dL RDW 12.6 (11.5-15.5) % Plt Count 337 (150-450) k/uL MPV 7.4 Neutrophils % 77 % Lymphocytes % 16 % Monocytes % 4 % Eosinophils % 2 % Basophils % 1 % Neutrophils # 9.0 H (1.3-7.7) k/uL Lymphocytes # 1.8 (1.0-4.8) k/uL Monocytes # 0.5 (0-1.0) k/uL Eosinophils # 0.2 (0-0.7) k/uL Basophils # 0.1 (0-0.2) k/uL VBG pH (7.31-7.41) VBG pCO2 (37-51) mmHg VBG HCO3 (24-28) mmol/L Sodium 139 (137-145) mmol/L Potassium 3.7 (3.5-5.1) mmol/L Chloride 100 (98-107) mmol/L Carbon Dioxide 21 L (22-30) mmol/L Anion Gap 18 mmol/L BUN 15 (9-20) mg/dL Creatinine 0.62 L (0.66-1.25) mg/dL Est GFR (CKD-EPI)AfAm >90 (>60 ml/min/1.73 sqM) Est GFR (CKD-EPI)NonAf >90 (>60 ml/min/1.73 sqM) Glucose 335 H (74-99) mg/dL POC Glucose (mg/dL) (70-110) mg/dL POC Glu Underwriting Manager ID Plasma Lactic Acid Len 2.6 H* (0.7-2.0) mmol/L Calcium 8.8 (8.4-10.2) mg/dL Total Bilirubin 0.8 (0.2-1.3) mg/dL AST 19 (17-59) U/L ALT 19 (4-49) U/L Alkaline Phosphatase 88 (38-126) U/L Total Protein 6.9 (6.3-8.2) g/dL Albumin 4.6 (3.5-5.0) g/dL Lipase 40 (23-300) U/L Serum Alcohol <10 mg/dL Acetone, Qual Positive (Negative) 04/11/22 04/11/22 04/11/22 Range/Units 10:26 10:32 12:15 WBC (3.8-10.6) k/uL RBC (4.30-5.90) m/uL Hgb (13.0-17.5) gm/dL Hct (39.0-53.0) % MCV (80.0-100.0) fL MCH (25.0-35.0) pg MCHC (31.0-37.0) g/dL RDW (11.5-15.5) % Plt Count (150-450) k/uL MPV Neutrophils % % Lymphocytes % % Monocytes % % Eosinophils % % Basophils % % Neutrophils # (1.3-7.7) k/uL Lymphocytes # (1.0-4.8) k/uL Monocytes # (0-1.0) k/uL Eosinophils # (0-0.7) k/uL Basophils # (0-0.2) k/uL VBG pH 7.55 H (7.31-7.41) VBG pCO2 25 L (37-51) mmHg VBG HCO3 21 L (24-28) mmol/L Sodium (137-145) mmol/L Potassium (3.5-5.1) mmol/L Chloride (98-107) mmol/L Carbon Dioxide (22-30) mmol/L Anion Gap mmol/L BUN (9-20) mg/dL Creatinine (0.66-1.25) mg/dL Est GFR (CKD-EPI)AfAm (>60 ml/min/1.73 sqM) Est GFR (CKD-EPI)NonAf (>60 ml/min/1.73 sqM) Glucose (74-99) mg/dL POC Glucose (mg/dL) 317 H 180 H (70-110) mg/dL POC Glu Underwriting Manager ID Zafar Malone Brittni Plasma Lactic Acid Len (0.7-2.0) mmol/L Calcium (8.4-10.2) mg/dL Total Bilirubin (0.2-1.3) mg/dL AST (17-59) U/L ALT (4-49) U/L Alkaline Phosphatase (38-126) U/L Total Protein (6.3-8.2) g/dL Albumin (3.5-5.0) g/dL Lipase (23-300) U/L Serum Alcohol mg/dL Acetone, Qual (Negative) Disposition Clinical Impression: Hyperglycemia Disposition: HOME SELF-CARE Condition: Stable Instructions (If sedation given, give patient instructions): Diabetic H yperglycemia (ED) Additional Instructions: Please return to the Emergency Department if symptoms worsen or any other concerns. Is patient prescribed a controlled substance at d/c from ED?: No Referrals: Brown Valenzuela MD [Primary Care Provider] - 1-2 days Time of Disposition: 11:45
[2022-04-11 10:52] LABS: Basophils # (A) 0.1 k/uL (0-0.2); Basophils % (A) 1 %; Eosinophils # (A) 0.2 k/uL (0-0.7); Eosinophils % (A) 2 %; HCT 43.1 % (39.0-53.0); HGB 14.9 gm/dL (13.0-17.5); Lymphocytes # (A) 1.8 k/uL (1.0-4.8); Lymphocytes % (A) 16 %; MCH 31.6 pg (25.0-35.0); MCHC 34.6 g/dL (31.0-37.0); MCV 91.3 fL (80.0-100.0); Mean Platelet Volume 7.4; Monocytes # (A) 0.5 k/uL (0-1.0); Monocytes % (A) 4 %; Neutrophils % (A) 77 %; Platelet Count 337 k/uL (150-450); RBC 4.72 m/uL (4.30-5.90); RDW 12.6 % (11.5-15.5); WBC 11.7 k/uL (3.8-10.6)
[2022-04-11 10:55] LABS: VBG PH 7.55 (7.31-7.41)
[2022-04-11 10:59] LABS: ALT 19 U/L (4-49); AST 19 U/L (17-59); African American GFR (CKD) >90 (>60 ml/min/1.73 sqM); Albumin 4.6 g/dL (3.5-5.0); Alcohol <10 mg/dL; Alkaline Phosphatase 88 U/L (38-126); Anion Gap 18 mmol/L; Blood Urea Nitrogen 15 mg/dL (9-20); Calcium 8.8 mg/dL (8.4-10.2); Carbon Dioxide 21 mmol/L (22-30); Chloride 100 mmol/L (98-107); Glucose 335 mg/dL (74-99); Lipase 40 U/L (23-300); Non-African American GFR(CKD) >90 (>60 ml/min/1.73 sqM); Potassium 3.7 mmol/L (3.5-5.1); Sodium 139 mmol/L (137-145); Total Bilirubin 0.8 mg/dL (0.2-1.3); Total Protein 6.9 g/dL (6.3-8.2)
[2022-04-11 11:08] LABS: Glucose,Whole Blood 317 mg/dL (70-110)
[2022-04-11 11:49] VITALS: BP 140/67; PULSE 101; RESP 20; TEMP 97.9
[2022-04-11 12:17] LABS: Glucose,Whole Blood 180 mg/dL (70-110)
== END 2022-04-11 12:50 | disposition home or self-care (01) ==
LOC: EC 10:11
DX: E10.40 Type 1 diabetes mellitus with diabetic neuropathy, unspecified (principal); J45.909 Unspecified asthma, uncomplicated; F41.9 Anxiety disorder, unspecified; F32.A Depression, unspecified; F12.90 Cannabis use, unspecified, uncomplicated; Z79.4 Long term (current) use of insulin
CPT/HCPCS: 99284 ×2; 96360 ×2; 96361 ×2; 36415; 80053; 82803; 82009; 83605; 83690; 85025; G0480; 80320

== ENCOUNTER 2022-04-13 12:30 | Inpatient (IN) | payer OTHER ==
[2022-04-13] MEDS ORDERED: SODIUM CHLORIDE 0.9% 2,000 ML IV STA (12:36)
[2022-04-13 13:08] LABS: Basophils % (A) 0 %; Eosinophils # (A) 0.1 k/uL (0-0.7); Eosinophils % (A) 1 %; HCT 43.5 % (39.0-53.0); HGB 15.1 gm/dL (13.0-17.5); Lymphocytes # (A) 2.2 k/uL (1.0-4.8); Lymphocytes % (A) 16 %; MCH 31.7 pg (25.0-35.0); MCHC 34.6 g/dL (31.0-37.0); MCV 91.6 fL (80.0-100.0); Mean Platelet Volume 7.8; Monocytes # (A) 0.5 k/uL (0-1.0); Monocytes % (A) 3 %; Neutrophils # (A) 10.6 k/uL (1.3-7.7); Neutrophils % (A) 78 %; Platelet Count 396 k/uL (150-450); RBC 4.75 m/uL (4.30-5.90); RDW 12.7 % (11.5-15.5); WBC 13.5 k/uL (3.8-10.6)
[2022-04-13 13:22] LABS: VBG PH 7.39 (7.31-7.41)
[2022-04-13 13:32] LABS: ALT 17 U/L (4-49); AST 17 U/L (17-59); African American GFR (CKD) >90 (>60 ml/min/1.73 sqM); Albumin 4.5 g/dL (3.5-5.0); Alkaline Phosphatase 112 U/L (38-126); Anion Gap 20 mmol/L; Blood Urea Nitrogen 16 mg/dL (9-20); Calcium 8.8 mg/dL (8.4-10.2); Carbon Dioxide 15 mmol/L (22-30); Chloride 105 mmol/L (98-107); Glucose 370 mg/dL (74-99); Lipase 44 U/L (23-300); Non-African American GFR(CKD) >90 (>60 ml/min/1.73 sqM); Potassium 4.1 mmol/L (3.5-5.1); Sodium 140 mmol/L (137-145); Total Bilirubin 0.9 mg/dL (0.2-1.3); Total Protein 6.7 g/dL (6.3-8.2)
--- NOTE | 2022-04-13 13:56 | ED ---
Abdominal Pain HPI - General Chief Complaint: Abdominal Pain Stated Complaint: nausea, vomiting Time Seen by Provider: 04/13/22 12:33 Source: patient, EMS, RN notes reviewed Mode of arrival: EMS Limitations: no limitations - History of Present Illness Initial Comments: This a 26-year-old male presents emergency Department via EMS for hyperglycemia, nausea vomiting. Patient was seen here a few days ago for similar complaints. Patient does admit that he has drank alcohol recently. Patient states he denies any alcohol intake last night he states started vomiting again last night blood sugar was elevated. Patient complains of diffuse abdominal pain patient did receive Zofran by EMS. Patient did not take any additional insulin. Patient is well-known emergency department. - Related Data Home Medications Medication Instructions Recorded Confirmed INSULIN ASPART (NovoLOG) [NovoLOG 10 unit SQ AC-TID 06/29/21 04/11/22 (formulary)] Gabapentin 600 mg PO TID 12/19/21 04/11/22 Insulin Detemir (Levemir) [Levemir] 25 unit SQ DAILY 04/11/22 04/11/22 Allergies Allergy/AdvReac Type Severity Reaction Status Date / Time No Known Allergies Allergy Verified 04/13/22 12:41 Review of Systems ROS Statement: Those systems with pertinent positive or pertinent negative responses have been documented in the HPI. ROS Other: All systems not noted in ROS Statement are negative. Past Medical History Past Medical History: Asthma, Diabetes Mellitus, Neurologic Disorder, Skin Disorder Additional Past Medical History / Comment(s): IDDM type I, neuropathy bilateral feet, DKA, eczema. History of Any Multi-Drug Resistant Organisms: None Reported Past Surgical History: Adenoidectomy Additional Past Surgical History / Comment(s): 2002 Past Anesthesia/Blood Transfusion Reactions: No Reported Reaction Past Psychological History: Anxiety, Depression Smoking Status: Never smoker Past Alcohol Use History: Occasional Past Drug Use History: Marijuana - Past Family History Mother Family Medical History: CVA/TIA Additional Family Medical History / Comment(s): TIA Father Family Medical History: Hyperlipidemia, Hypertension Additional Family Medical History / Comment(s): . General Exam Limitations: no limitations General appearance: alert, in no apparent distress Head exam: Present: atraumatic, normocephalic, normal inspection Eye exam: Present: normal appearance, PERRL, EOMI. Absent: scleral icterus, conjunctival injection, periorbital swelling ENT exam: Present: normal exam, normal oropharynx, mucous membranes moist Neck exam: Present: normal inspection, full ROM. Absent: tenderness, meningismus, lymphadenopathy Respiratory exam: Present: normal lung sounds bilaterally. Absent: respiratory distress, wheezes, rales, rhonchi, stridor Cardiovascular Exam: Present: normal rhythm, tachycardia, normal heart sounds. Absent: systolic murmur, diastolic murmur, rubs, gallop, clicks GI/Abdominal exam: Present: soft, normal bowel sounds. Absent: distended, tende rness, guarding, rebound, rigid Course Vital Signs 04/13/22 04/13/22 12:36 12:55 Temperature 97.8 F Pulse Rate 105 H 107 H Respiratory 20 24 Rate Blood Pressure 126/76 121/77 O2 Sat by Pulse 100 100 Oximetry Medical Decision Making - Medical Decision Making 26-year-old presented for hyperglycemia nausea vomiting. Patient has metabolic acidosis with anion gap consistent with DKA. Patient was started on IV fluids continuously given bolus, insulin drip with no IV bolus his blood sugars 300. Patient remained on drip until anion gap is closed, patiently admitted for further treatment and management. - Lab Data Result diagrams: 04/13/22 12:55 04/13/22 12:55 Lab Results 04/13/22 04/13/22 04/13/22 Range/Units 12:55 12:55 12:55 WBC 13.5 H (3.8-10.6) k/uL RBC 4.75 (4.30-5.90) m/uL Hgb 15.1 (13.0-17.5) gm/dL Hct 43.5 (39.0-53.0) % MCV 91.6 (80.0-100.0) fL MCH 31.7 (25.0-35.0) pg MCHC 34.6 (31.0-37.0) g/dL RDW 12.7 (11.5-15.5) % Plt Count 396 (150-450) k/uL MPV 7.8 Neutrophils % 78 % Lymphocytes % 16 % Monocytes % 3 % Eosinophils % 1 % Basophils % 0 % Neutrophils # 10.6 H (1.3-7.7) k/uL Lymphocytes # 2.2 (1.0-4.8) k/uL Monocytes # 0.5 (0-1.0) k/uL Eosinophils # 0.1 (0-0.7) k/uL Basophils # 0.0 (0-0.2) k/uL VBG pH (7.31-7.41) VBG pCO2 (37-51) mmHg VBG HCO3 (24-28) mmol/L Sodium 140 (137-145) mmol/L Potassium 4.1 (3.5-5.1) mmol/L Chloride 105 (98-107) mmol/L Carbon Dioxide 15 L (22-30) mmol/L Anion Gap 20 mmol/L BUN 16 (9-20) mg/dL Creatinine 0.62 L (0.66-1.25) mg/dL Est GFR (CKD-EPI)AfAm >90 (>60 ml/min/1.73 sqM) Est GFR (CKD-EPI)NonAf >90 (>60 ml/min/1.73 sqM) Glucose 370 H (74-99) mg/dL Plasma Lactic Acid Len 2.3 H* (0.7-2.0) mmol/L Calcium 8.8 (8.4-10.2) mg/dL Total Bilirubin 0.9 (0.2-1.3) mg/dL AST 17 (17-59) U/L ALT 17 (4-49) U/L Alkaline Phosphatase 112 (38-126) U/L Total Protein 6.7 (6.3-8.2) g/dL Albumin 4.5 (3.5-5.0) g/dL Lipase 44 (23-300) U/L Acetone, Qual Positive (Negative) 04/13/22 Range/Units 12:55 WBC (3.8-10.6) k/uL RBC (4.30-5.90) m/uL Hgb (13.0-17.5) gm/dL Hct (39.0-53.0) % MCV (80.0-100.0) fL MCH (25.0-35.0) pg MCHC (31.0-37.0) g/dL RDW (11.5-15.5) % Plt Count (150-450) k/uL MPV Neutrophils % % Lymphocytes % % Monocytes % % Eosinophils % % Basophils % % Neutrophils # (1.3-7.7) k/uL Lymphocytes # (1.0-4.8) k/uL Monocytes # (0-1.0) k/uL Eosinophils # (0-0.7) k/uL Basophils # (0-0.2) k/uL VBG pH 7.39 (7.31-7.41) VBG pCO2 27 L (37-51) mmHg VBG HCO3 16 L (24-28) mmol/L Sodium (137-145) mmol/L Potassium (3.5-5.1) mmol/L Chloride (98-107) mmol/L Carbon Dioxide (22-30) mmol/L Anion Gap mmol/L BUN (9-20) mg/dL Creatinine (0.66-1.25) mg/dL Est GFR (CKD-EPI)AfAm (>60 ml/min/1.73 sqM) Est GFR (CKD-EPI)NonAf (>60 ml/min/1.73 sqM) Glucose (74-99) mg/dL Plasma Lactic Acid Len (0.7-2.0) mmol/L Calcium (8.4-10.2) mg/dL Total Bilirubin (0.2-1.3) mg/dL AST (17-59) U/L ALT (4-49) U/L Alkaline Phosphatase (38-126) U/L Total Protein (6.3-8.2) g/dL Albumin (3.5-5.0) g/dL Lipase (23-300) U/L Acetone, Qual (Negative) Critical Care Time Critical Care Time: Yes Total Critical Care Time: 35 Disposition Clinical Impression: DKA (diabetic ketoacidoses) Disposition: ADMITTED IP TO THIS [facility] Condition: Poor Referrals: Brown Valenzuela MD [Primary Care Provider] - 1-2 days Time of Disposition: 13:56
[2022-04-13] MEDS ORDERED: INSULIN REGULAR 100 UNIT in SODIUM CHLORIDE 0.9% 100 ML IV SCH (14:00)
[2022-04-13 14:10] LABS: Glucose,Whole Blood 320 mg/dL (70-110)
[2022-04-13] MEDS ORDERED: D5-0.45% NACL WITH KCL 20MEQ/L 1,000 ML IV SCH (16:00)
[2022-04-13] MEDS ORDERED: ONDANSETRON 4 MG/2 ML VIAL IVP PRN (16:04)
[2022-04-13 16:06] LABS: Glucose,Whole Blood 300 mg/dL (70-110)
[2022-04-13 16:45] LABS: African American GFR (CKD) >90 (>60 ml/min/1.73 sqM); Anion Gap 17 mmol/L; Blood Urea Nitrogen 14 mg/dL (9-20); Carbon Dioxide 15 mmol/L (22-30); Chloride 105 mmol/L (98-107); Glucose 335 mg/dL (74-99); Non-African American GFR(CKD) >90 (>60 ml/min/1.73 sqM); Phosphorus 3.6 mg/dL (2.5-4.5); Potassium 4.2 mmol/L (3.5-5.1); Sodium 137 mmol/L (137-145)
[2022-04-13 17:08] LABS: Glucose,Whole Blood 263 mg/dL (70-110)
[2022-04-13 18:04] LABS: Glucose,Whole Blood 238 mg/dL (70-110)
[2022-04-13 19:01] LABS: Glucose,Whole Blood 194 mg/dL (70-110)
[2022-04-13 20:12] LABS: Glucose,Whole Blood 108 mg/dL (70-110)
[2022-04-13 20:57] LABS: African American GFR (CKD) >90 (>60 ml/min/1.73 sqM); Anion Gap 5 mmol/L; Blood Urea Nitrogen 14 mg/dL (9-20); Carbon Dioxide 26 mmol/L (22-30); Chloride 106 mmol/L (98-107); Glucose 110 mg/dL (74-99); Non-African American GFR(CKD) >90 (>60 ml/min/1.73 sqM); Phosphorus 2.6 mg/dL (2.5-4.5); Potassium 3.7 mmol/L (3.5-5.1); Sodium 137 mmol/L (137-145)
[2022-04-13 21:13] LABS: Glucose,Whole Blood 67 mg/dL (70-110)
[2022-04-13 21:33] LABS: Glucose,Whole Blood 60 mg/dL (70-110)
[2022-04-13 21:59] LABS: Glucose,Whole Blood 163 mg/dL (70-110)
[2022-04-13] MEDS: GABAPENTIN 300 MG CAP PO SCH (22:22)
[2022-04-13] MEDS: INSULIN DETEMIR (LEVEMIR) 100 UNIT/ML SYR SQ SCH (22:23)
[2022-04-14 02:16] LABS: Glucose,Whole Blood 149 mg/dL (70-110)
[2022-04-14 06:14] LABS: Glucose,Whole Blood 99 mg/dL (70-110)
[2022-04-14] MEDS: INSULIN ASPART (NovoLOG) 100 UNIT/ML VIAL SQ SCH ×3 (07:22→18:16)
[2022-04-14] MEDS: INSULIN DETEMIR (LEVEMIR) 100 UNIT/ML SYR SQ SCH (10:35)
[2022-04-14] MEDS: GABAPENTIN 300 MG CAP PO SCH ×2 (10:36→18:16)
[2022-04-14 11:47] VITALS: RESP 16
[2022-04-14 12:10] LABS: Glucose,Whole Blood 144 mg/dL (70-110)
[2022-04-14 13:25] VITALS: TEMP 97.6
[2022-04-14 16:48] LABS: Glucose,Whole Blood 166 mg/dL (70-110)
[2022-04-14 16:59] LABS: Appearance,Urine Clear (Clear); Bilirubin,Urine Negative (Negative); Blood,Urine Negative (Negative); Color,Urine Light Yellow; Glucose,Urine (UA) 4+ (Negative); Ketones,Urine Negative (Negative); Leukocyte Esterase,Urine Negative (Negative); Nitrite,Urine Negative (Negative); PH, Urine 6.5 (5.0-8.0); Protein,Urine Negative (Negative); Specific Gravity,Urine 1.016 (1.001-1.035); Urobilinogen,Urine <2.0 mg/dL (<2.0)
[2022-04-14 18:30] VITALS: BP 135/88; PULSE 78
--- NOTE | 2022-04-16 00:23 | HP ---
HISTORY AND PHYSICAL CHIEF COMPLAINT: Ketoacidosis. HISTORY OF PRESENT ILLNESS: This is another admission for this 26-year-old noncompliant, a type 1 diabetic. He started drinking again and not taking his insulin and came in with blood sugar over 400, and anion gap of 20. REVIEW OF SYSTEMS: He is awake and alert. He has had no nausea or vomiting so far. PHYSICAL EXAMINATION: CHEST: Clear. CARDIAC: Normal. ABDOMEN: Soft, nontender. IMPRESSION: 1. Diabetic ketoacidosis. 2. Type 1 insulin-dependent diabetes mellitus, uncontrolled. 3. Depression. 4. Noncompliant patient. PLAN: 1. Bedrest. 2. IV fluids. 3. DKA protocol. MMODL / IJN: [id number] /
--- NOTE | 2022-04-16 05:51 | DS ---
DISCHARGE SUMMARY CHIEF COMPLAINT: DKA. HISTORY OF PRESENT ILLNESS AND PHYSICAL EXAMINATION: Details of this man's history and physical can be found in the initial workup. LABORATORY STUDIES: While he was in the hospital, he had laboratory studies, details of which can be found in the laboratory section of his chart. COURSE IN THE HOSPITAL: After admission, he was placed on bedrest, and started on intravenous fluids, and he was rehydrated. Gap was closed. As he has done over and over, he signed out against medical advice. FINAL DIAGNOSES: 1. Diabetic ketoacidosis. 2. Dehydration. 3. Uncontrolled type 1 insulin-dependent diabetes mellitus. 4. Noncompliant patient. 5. Depression. OPERATIONS: None. CONSULTATIONS: None. CONDITION: He is improved. He signed out AMA. GRACE / ALDEN: [id number] /
--- NOTE | 2022-04-16 06:05 | HP ---
HISTORY AND PHYSICAL CHIEF COMPLAINT: DKA. HISTORY OF PRESENT ILLNESS: This gentleman was just in the hospital for a week or so ago. He comes in and out frequently. He becomes depressed, starts drinking, and then does not take his insulin. In the emergency room, his gap was 20. REVIEW OF SYSTEMS: He is quite lethargic, but he denies any headaches, chest pain, abdominal pain. He is not vomiting this time, but he usually is when he comes in. He states he has been drinking. History is otherwise unremarkable and unchanged. PHYSICAL EXAMINATION: VITAL SIGNS: Blood pressure is 138/85 with a pulse of 90, respirations of 38, and he is afebrile. GENERAL: He appeared to be dehydrated, tall, slender, and in no acute distress. HEAD, EARS, EYES, NOSE, MOUTH, AND THROAT: Normal. CHEST: Clear. CARDIAC: Normal. ABDOMEN: Soft and nontender. EXTREMITIES: Normal. NEUROLOGICAL: He is intact. ASSESSMENT: He is admitted to the hospital with diagnoses: 1. Diabetic ketoacidosis. 2. Dehydration. 3. Type 1 diabetes mellitus. 4. Depression. 5. Alcohol abuse. PLAN: 1. Bedrest. 2. IV fluids. 3. DKA protocol. MMODL / IJN: [id number] /
== END 2022-04-14 18:30 | disposition left against medical advice (07) | DRG 639 ==
LOC: EC 12:30 → 3SCARD 14:51
PROVIDERS: ADMIT Family Medicine; ATTEND Family Medicine
DX: E10.10 Type 1 diabetes mellitus with ketoacidosis without coma (principal); E86.0 Dehydration; F10.10 Alcohol abuse, uncomplicated; T38.3X6A Underdosing of insulin and oral hypoglycemic [antidiabetic] drugs, initial encounter; E10.42 Type 1 diabetes mellitus with diabetic polyneuropathy; L30.9 Dermatitis, unspecified; F32.A Depression, unspecified; F41.9 Anxiety disorder, unspecified; J45.909 Unspecified asthma, uncomplicated; Z53.29 Procedure and treatment not carried out because of patient's decision for other reasons; Z79.4 Long term (current) use of insulin; Z82.49 Family history of ischemic heart disease and other diseases of the circulatory system; Z91.14 Patient's other noncompliance with medication regimen; Z91.199 Patient's noncompliance with other medical treatment and regimen due to unspecified reason; X58.XXXA Exposure to other specified factors, initial encounter; Z79.899 Other long term (current) drug therapy
CPT/HCPCS: 36415; 80051; 80053; 81003; 82009; 82565; 82803; 82947; 83605; 83690; 84100; 84520; 85025; 96361; 99291

== ENCOUNTER 2022-04-16 00:16 | Inpatient (IN) | payer OTHER ==
[2022-04-16 00:23] LABS: Glucose,Whole Blood 440 mg/dL (70-110)
[2022-04-16] MEDS ORDERED: SODIUM CHLORIDE 0.9% 1,000 ML IV STA ×3 (00:39→03:18)
--- NOTE | 2022-04-16 00:50 | ED ---
Nausea/Vomiting/Diarrhea HPI - General Chief complaint: Nausea/Vomiting/Diarrhea Stated complaint: nausea, vomiting Time Seen by Provider: 04/16/22 00:48 Source: patient, EMS, RN notes reviewed, old records reviewed Mode of arrival: EMS Limitations: no limitations - History of Present Illness Initial comments: This is a 26-year-old male well-known to our emergency room patient's coming in for evaluation regards to not feeling well. Elevated blood sugars. Patient has known history of diabetes DKA substance abuse psychiatric illness. Patient states he does not feel well MD complaint: nausea, vomiting, abdominal pain -: days(s) Description of Vomiting: food contents, watery, bilious Description of Diarrhea: water, mucous Location: diffuse Severity: severe Severity scale (1-10): 10 Quality: stabbing, aching Consistency: intermittent Improves with: none Worsens with: none Associated Symptoms: myalgias, loss of appetite, malaise, nausea/vomiting, weakness - Related Data Home Medications Medication Instructions Recorded Confirmed INSULIN ASPART (NovoLOG) [NovoLOG 10 unit SQ AC-TID 06/29/21 04/24/22 (formulary)] Gabapentin 600 mg PO TID 12/19/21 04/24/22 Insulin Detemir (Levemir) [Levemir] 25 unit SQ DAILY 04/11/22 04/24/22 Previous Rx's Medication Instructions Recorded Ondansetron Odt [Zofran Odt] 4 mg PO Q8HR PRN #10 tab 04/17/22 Allergies Allergy/AdvReac Type Severity Reaction Status Date / Time No Known Allergies Allergy Verified 04/23/22 06:45 Review of Systems ROS Statement: Those systems with pertinent positive or pertinent negative responses have been documented in the HPI. ROS Other: All systems not noted in ROS Statement are negative. Past Medical History Past Medical History: Asthma, Diabetes Mellitus, Neurologic Disorder, Skin Disorder Additional Past Medical History / Comment(s): IDDM type I, neuropathy bilateral feet, DKA, eczema. History of Any Multi-Drug Resistant Organisms: None Reported Past Surgical History: Adenoidectomy Additional Past Surgical History / Comment(s): 2002 Past Anesthesia/Blood Transfusion Reactions: No Reported Reaction Past Psychological History: Anxiety, Depression Additional Psychological History / Comment(s): Pt has had multiple psychiatric admissions for depression/suicide attempts. Pt states his depression is stable and has not had any thoughts/plans of suicide recently. Smoking Status: Never smoker Past Alcohol Use History: Occasional Additional Past Alcohol Use History / Comment(s): Pt started vaping off and on in 2009. Pt states he drinks alcohol occasionally. Past Drug Use History: Marijuana Additional Drug Use History / Comment(s): Occasional - Past Family History Mother Family Medical History: CVA/TIA Additional Family Medical History / Comment(s): TIA Father Family Medical History: Hyperlipidemia, Hypertension Additional Family Medical History / Comment(s): . General Exam Limitations: no limitations General appearance: alert, in no apparent distress, anxious, lethargic, in distress Head exam: Present: atraumatic, normocephalic, normal inspection Eye exam: Present: normal appearance, PERRL, EOMI. Absent: scleral icterus, conjunctival injection, periorbital swelling ENT exam: Present: normal exam, mucous membranes dry Neck exam: Present: normal inspection. Absent: tenderness, meningismus, lymphadenopathy Respiratory exam: Present: normal lung sounds bilaterally. Absent: respiratory distress, wheezes, rales, rhonchi, stridor Cardiovascular Exam: Present: regular rate, normal rhythm, normal heart sounds. Absent: systolic murmur, diastolic murmur, rubs, gallop, clicks GI/Abdominal exam: Present: soft, normal bowel sounds. Absent: distended, tenderness, guarding, rebound, rigid Extremities exam: Present: normal inspection, full ROM, normal capillary refill. Absent: tenderness, pedal edema, joint swelling, calf tenderness Back exam: Present: normal inspection Neurological exam: Present: alert, oriented X3, CN II-XII intact Psychiatric exam: Present: normal affect, normal mood Skin exam: Present: warm, dry, intact, normal color. Absent: rash Course Vital Signs 04/16/22 04/16/22 04/16/22 00:24 02:02 03:47 Temperature 97.4 F L Pulse Rate 104 H 114 H 116 H Respiratory 18 16 18 Rate Blood Pressure 124/91 112/64 121/72 O2 Sat by Pulse 100 97 Oximetry 04/16/22 04/16/22 04/16/22 05:10 06:20 06:38 Temperature Pulse Rate 108 H 118 H 93 Respiratory 16 18 Rate Blood Pressure 102/55 104/56 O2 Sat by Pulse 96 96 Oximetry 04/16/22 04/16/22 04/16/22 07:00 08:00 09:00 Temperature 98.7 F 98.7 F Pulse Rate 75 97 96 Respiratory 18 16 16 Rate Blood Pressure 104/63 115/74 103/66 O2 Sat by Pulse 98 97 Oximetry 04/16/22 10:00 Temperature Pulse Rate 96 Respiratory 16 Rate Blood Pressure 104/70 O2 Sat by Pulse 97 Oximetry - Reevaluation(s) Reevaluation #1: 04/16/22 Medical record is reviewed Patient symptoms improved in the emergency room Patient informed of results and questions answered Medical Decision Making - Medical Decision Making 26 male DF for evaluation for DKA. Elevated blood sugar. Patient has severe nausea vomiting intractable pain. Patient feeling better here in the ER will be admitted for further management - Lab Data Result diagrams: 04/16/22 00:42 04/16/22 00:42 Lab Results 04/16/22 04/16/22 04/16/22 Range/Units 00:21 00:42 00:42 WBC 12.0 H (3.8-10.6) k/uL RBC 4.71 (4.30-5.90) m/uL Hgb 14.8 (13.0-17.5) gm/dL Hct 43.6 (39.0-53.0) % MCV 92.7 (80.0-100.0) fL MCH 31.5 (25.0-35.0) pg MCHC 33.9 (31.0-37.0) g/dL RDW 12.8 (11.5-15.5) % Plt Count 413 (150-450) k/uL MPV 7.9 Neutrophils % 80 % Lymphocytes % 13 % Monocytes % 5 % Eosinophils % 1 % Basophils % 0 % Neutrophils # 9.6 H (1.3-7.7) k/uL Lymphocytes # 1.5 (1.0-4.8) k/uL Monocytes # 0.6 (0-1.0) k/uL Eosinophils # 0.1 (0-0.7) k/uL Basophils # 0.1 (0-0.2) k/uL VBG pH (7.31-7.41) VBG pCO2 (37-51) mmHg VBG HCO3 (24-28) mmol/L Sodium 138 (137-145) mmol/L Potassium 4.8 (3.5-5.1) mmol/L Chloride 101 (98-107) mmol/L Carbon Dioxide 12 L (22-30) mmol/L Anion Gap 25 mmol/L BUN 14 (9-20) mg/dL Creatinine 0.75 (0.66-1.25) mg/dL Est GFR (CKD-EPI)AfAm >90 (>60 ml/min/1.73 sqM) Est GFR (CKD-EPI)NonAf >90 (>60 ml/min/1.73 sqM) Glucose 412 H (74-99) mg/dL POC Glucose (mg/dL) 440 H (70-110) mg/dL POC Glu Patient Care Nursing Assistant ID Yoana Deluna Lactic Ac Sepsis Rflx Plasma Lactic Acid Len (0.7-2.0) mmol/L Calcium 9.0 (8.4-10.2) mg/dL Phosphorus (2.5-4.5) mg/dL Magnesium (1.6-2.3) mg/dL Total Bilirubin 1.0 (0.2-1.3) mg/dL AST 19 (17-59) U/L ALT 18 (4-49) U/L Alkaline Phosphatase 108 (38-126) U/L Total Protein 6.6 (6.3-8.2) g/dL Albumin 4.5 (3.5-5.0) g/dL Amylase 51 (30-110) U/L Lipase 51 (23-300) U/L Acetone, Qual Positive (Negative) 04/16/22 04/16/22 04/16/22 Range/Units 00:42 00:42 00:42 WBC (3.8-10.6) k/uL RBC (4.30-5.90) m/uL Hgb (13.0-17.5) gm/dL Hct (39.0-53.0) % MCV (80.0-100.0) fL MCH (25.0-35.0) pg MCHC (31.0-37.0) g/dL RDW (11.5-15.5) % Plt Count (150-450) k/uL MPV Neutrophils % % Lymphocytes % % Monocytes % % Eosinophils % % Basophils % % Neutrophils # (1.3-7.7) k/uL Lymphocytes # (1.0-4.8) k/uL Monocytes # (0-1.0) k/uL Eosinophils # (0-0.7) k/uL Basophils # (0-0.2) k/uL VBG pH 7.42 H (7.31-7.41) VBG pCO2 21 L (37-51) mmHg VBG HCO3 13 L (24-28) mmol/L Sodium (137-145) mmol/L Potassium (3.5-5.1) mmol/L Chloride (98-107) mmol/L Carbon Dioxide (22-30) mmol/L Anion Gap mmol/L BUN (9-20) mg/dL Creatinine (0.66-1.25) mg/dL Est GFR (CKD-EPI)AfAm (>60 ml/min/1.73 sqM) Est GFR (CKD-EPI)NonAf (>60 ml/min/1.73 sqM) Glucose (74-99) mg/dL POC Glucose (mg/dL) (70-110) mg/dL POC Glu Patient Care Nursing Assistant ID Lactic Ac Sepsis Rflx Plasma Lactic Acid Len 4.6 H* (0.7-2.0) mmol/L Calcium (8.4-10.2) mg/dL Phosphorus 3.5 (2.5-4.5) mg/dL Magnesium 1.9 (1.6-2.3) mg/dL Total Bilirubin (0.2-1.3) mg/dL AST (17-59) U/L ALT (4-49) U/L Alkaline Phosphatase (38-126) U/L Total Protein (6.3-8.2) g/dL Albumin (3.5-5.0) g/dL Amylase (30-110) U/L Lipase (23-300) U/L Acetone, Qual (Negative) 04/16/22 04/16/22 Range/Units 01:17 02:43 WBC (3.8-10.6) k/uL RBC (4.30-5.90) m/uL Hgb (13.0-17.5) gm/dL Hct (39.0-53.0) % MCV (80.0-100.0) fL MCH (25.0-35.0) pg MCHC (31.0-37.0) g/dL RDW (11.5-15.5) % Plt Count (150-450) k/uL MPV Neutrophils % % Lymphocytes % % Monocytes % % Eosinophils % % Basophils % % Neutrophils # (1.3-7.7) k/uL Lymphocytes # (1.0-4.8) k/uL Monocytes # (0-1.0) k/uL Eosinophils # (0-0.7) k/uL Basophils # (0-0.2) k/uL VBG pH (7.31-7.41) VBG pCO2 (37-51) mmHg VBG HCO3 (24-28) mmol/L Sodium (137-145) mmol/L Potassium (3.5-5.1) mmol/L Chloride (98-107) mmol/L Carbon Dioxide (22-30) mmol/L Anion Gap mmol/L BUN (9-20) mg/dL Creatinine (0.66-1.25) mg/dL Est GFR (CKD-EPI)AfAm (>60 ml/min/1.73 sqM) Est GFR (CKD-EPI)NonAf (>60 ml/min/1.73 sqM) Glucose (74-99) mg/dL POC Glucose (mg/dL) 330 H (70-110) mg/dL POC Glu Patient Care Nursing Assistant ID Kallek, Pao Lactic Ac Sepsis Rflx Y Plasma Lactic Acid Len (0.7-2.0) mmol/L Calcium (8.4-10.2) mg/dL Phosphorus (2.5-4.5) mg/dL Magnesium (1.6-2.3) mg/dL Total Bilirubin (0.2-1.3) mg/dL AST (17-59) U/L ALT (4-49) U/L Alkaline Phosphatase (38-126) U/L Total Protein (6.3-8.2) g/dL Albumin (3.5-5.0) g/dL Amylase (30-110) U/L Lipase (23-300) U/L Acetone, Qual (Negative) - EKG Data -: EKG Interpreted by Me (EKG sinus 107 KS 166 QRS 94 QTC 408) Disposition Clinical Impression: Dehydration, Ketonuria, DKA (diabetic ketoacidoses), Hyperglycemia Disposition: Left Against Medical Advice Condition: Fair Is patient prescribed a controlled substance at d/c from ED?: No
[2022-04-16 00:53] LABS: Basophils # (A) 0.1 k/uL (0-0.2); Basophils % (A) 0 %; Eosinophils # (A) 0.1 k/uL (0-0.7); Eosinophils % (A) 1 %; HCT 43.6 % (39.0-53.0); HGB 14.8 gm/dL (13.0-17.5); Lymphocytes # (A) 1.5 k/uL (1.0-4.8); Lymphocytes % (A) 13 %; MCH 31.5 pg (25.0-35.0); MCHC 33.9 g/dL (31.0-37.0); MCV 92.7 fL (80.0-100.0); Mean Platelet Volume 7.9; Monocytes # (A) 0.6 k/uL (0-1.0); Monocytes % (A) 5 %; Neutrophils # (A) 9.6 k/uL (1.3-7.7); Neutrophils % (A) 80 %; Platelet Count 413 k/uL (150-450); RBC 4.71 m/uL (4.30-5.90); RDW 12.8 % (11.5-15.5); VBG PH 7.42 (7.31-7.41)
[2022-04-16 01:12] LABS: ALT 18 U/L (4-49); AST 19 U/L (17-59); African American GFR (CKD) >90 (>60 ml/min/1.73 sqM); Albumin 4.5 g/dL (3.5-5.0); Alkaline Phosphatase 108 U/L (38-126); Amylase 51 U/L (30-110); Anion Gap 25 mmol/L; Blood Urea Nitrogen 14 mg/dL (9-20); Carbon Dioxide 12 mmol/L (22-30); Chloride 101 mmol/L (98-107); Glucose 412 mg/dL (74-99); Lipase 51 U/L (23-300); Non-African American GFR(CKD) >90 (>60 ml/min/1.73 sqM); Potassium 4.8 mmol/L (3.5-5.1); Sodium 138 mmol/L (137-145); Total Protein 6.6 g/dL (6.3-8.2)
[2022-04-16] MEDS ORDERED: SODIUM CHLORIDE 0.9% 500 ML 500 ML IV STA (01:24)
[2022-04-16 02:23] LABS: Magnesium 1.9 mg/dL (1.6-2.3); Phosphorus 3.5 mg/dL (2.5-4.5)
[2022-04-16 02:45] LABS: Glucose,Whole Blood 330 mg/dL (70-110)
[2022-04-16] MEDS ORDERED: NALOXONE 0.4 MG/ML 1 ML VIAL IV PRN (03:18)
[2022-04-16] MEDS ORDERED: INSULIN REGULAR 100 UNIT/ML VIAL (IM/SQ) SQ ONE (03:18)
[2022-04-16] MEDS ORDERED: ONDANSETRON 4 MG/2 ML VIAL IVP PRN ×2 (03:18)
[2022-04-16] MEDS ORDERED: MORPHINE SULFATE 4 MG/ML SYRINGE IV PRN (03:18)
[2022-04-16] MEDS ORDERED: LORazepam 2 MG/ML INJ IV STA (03:18)
[2022-04-16] MEDS: SODIUM CHLORIDE 0.9% 1,000 ML IV SCH ×4 (03:35→14:08)
[2022-04-16 03:40] LABS: Glucose,Whole Blood 361 mg/dL (70-110)
[2022-04-16 03:52] LABS: Appearance,Urine Clear (Clear); Bilirubin,Urine Negative (Negative); Blood,Urine Negative (Negative); Color,Urine Colorless; Glucose,Urine (UA) 4+ (Negative); Leukocyte Esterase,Urine Negative (Negative); Nitrite,Urine Negative (Negative); PH, Urine 5.5 (5.0-8.0); Protein,Urine Negative (Negative); Specific Gravity,Urine 1.033 (1.001-1.035); Urobilinogen,Urine <2.0 mg/dL (<2.0)
[2022-04-16 04:00] LABS: Ketones,Urine 4+ (Negative)
[2022-04-16 04:26] LABS: Glucose,Whole Blood 280 mg/dL (70-110)
[2022-04-16 08:47] VITALS: RESP 16; TEMP 98.7
[2022-04-16 09:05] VITALS: PULSE 96
[2022-04-16 10:22] VITALS: BP 104/70
[2022-04-16] MEDS ORDERED: INSULIN DETEMIR (LEVEMIR) 100 UNIT/ML SYR SQ SCH (11:30)
[2022-04-16 11:59] LABS: Glucose,Whole Blood 195 mg/dL (70-110)
[2022-04-16] MEDS ORDERED: INSULIN ASPART (NovoLOG) 100 UNIT/ML VIAL SQ SCH (12:30)
[2022-04-16] MEDS ORDERED: GABAPENTIN 300 MG CAP PO SCH (16:00)
--- NOTE | 2022-04-17 06:37 | HP ---
HISTORY AND PHYSICAL CHIEF COMPLAINT: DKA. HISTORY OF PRESENT ILLNESS: This is another of many admissions for this 26-year-old depressed noncompliant type 1 insulin-dependent diabetic. on , signed out on . He came back in as DKA. REVIEW OF SYSTEMS: Unchanged. He is lethargic at the time. He is nauseated. He has had no chest pain. Neurologic . Past medical history, family history, personal and social histories are all the same. PHYSICAL EXAMINATION: VITAL SIGNS: Blood pressure is 104/65 with a pulse of 96 regular, respirations are 38. He is afebrile. GENERAL: Appeared to be slender and is dehydrated. HEENT: Head, ears, eyes, nose, mouth and throat were normal. Mucous membranes were slightly dry. CHEST: Clear. CARDIAC: Tachycardia. ABDOMEN: Flat. EXTREMITIES: Normal. NEUROLOGIC: He is lethargic. HOSPITAL DIAGNOSES: 1. Diabetic ketoacidosis. 2. Type 1 insulin-dependent diabetes. 3. Noncompliant patient. 4. Alcoholism. 5. Depression. PLAN: 1. Bedrest. 2. DKA protocol. 3. Psychiatry consult again. MMODL / IJN: [id number] /
--- NOTE | 2022-04-17 08:02 | DS ---
DISCHARGE SUMMARY CHIEF COMPLAINT: DKA. HISTORY OF PRESENT ILLNESS AND PHYSICAL EXAMINATION: Details of this man's history and physical can be found in the initial workup. LABORATORY STUDIES: White in the hospital, he had laboratory studies, details of which can be found in the laboratory section of his chart. COURSE IN THE HOSPITAL: After admission, he was placed on bedrest, started on intravenous fluids and started on DKA protocol. He had been in the hospital for several hours and became more alert, . FINAL DIAGNOSES: 1. Diabetic ketoacidosis. 2. Acute dehydration. 3. CAD. 4. Depression. 5. Alcoholism. OPERATIONS: None. CONSULTATIONS: None. He is improved. MMODL / IJN: [id number] /
[2022-04-17] MEDS ORDERED: INSULIN DETEMIR (LEVEMIR) 100 UNIT/ML SYR SQ SCH (09:00)
== END 2022-04-16 15:34 | disposition left against medical advice (07) | DRG 639 ==
LOC: EC 00:16 → 5NMEDONC 03:18
PROVIDERS: ADMIT Family Medicine; ATTEND Family Medicine
DX: E10.10 Type 1 diabetes mellitus with ketoacidosis without coma (principal); E10.40 Type 1 diabetes mellitus with diabetic neuropathy, unspecified; F10.20 Alcohol dependence, uncomplicated; Z79.4 Long term (current) use of insulin; E86.0 Dehydration; F32.A Depression, unspecified; F41.9 Anxiety disorder, unspecified; J45.909 Unspecified asthma, uncomplicated; L30.9 Dermatitis, unspecified; I25.10 Atherosclerotic heart disease of native coronary artery without angina pectoris; Z91.199 Patient's noncompliance with other medical treatment and regimen due to unspecified reason; Z79.899 Other long term (current) drug therapy
CPT/HCPCS: 36415; 80053; 81003; 82009; 82150; 82803; 83605; 83690; 83735; 84100; 85025; 93005; 96361; 96374; 99285

== ENCOUNTER 2022-04-17 10:00 | Emergency (ER) | payer OTHER ==
[2022-04-17] MEDS ORDERED: METOCLOPRAMIDE 5 MG/ML 2 ML VIAL IVP STA (10:01)
[2022-04-17] MEDS ORDERED: diphenhydrAMINE 50 MG/ML 1 ML VIAL IVP STA (10:01)
[2022-04-17] MEDS ORDERED: SODIUM CHLORIDE 0.9% 2,000 ML IV STA (10:01)
[2022-04-17 10:06] VITALS: RESP 18; TEMP 97.8
[2022-04-17 10:42] LABS: VBG PH 7.39 (7.31-7.41)
[2022-04-17 10:43] LABS: ALT 17 U/L (4-49); AST 21 U/L (17-59); African American GFR (CKD) >90 (>60 ml/min/1.73 sqM); Alkaline Phosphatase 68 U/L (38-126); Anion Gap 8 mmol/L; Blood Urea Nitrogen 8 mg/dL (9-20); Calcium 8.5 mg/dL (8.4-10.2); Carbon Dioxide 27 mmol/L (22-30); Chloride 104 mmol/L (98-107); Glucose 199 mg/dL (74-99); Lipase 74 U/L (23-300); Non-African American GFR(CKD) >90 (>60 ml/min/1.73 sqM); Potassium 3.9 mmol/L (3.5-5.1); Sodium 139 mmol/L (137-145); Total Bilirubin 0.4 mg/dL (0.2-1.3); Total Protein 6.1 g/dL (6.3-8.2)
--- NOTE | 2022-04-17 10:45 | ED ---
Abdominal Pain HPI - General Chief Complaint: Abdominal Pain Stated Complaint: abd pain Time Seen by Provider: 04/17/22 10:01 Source: EMS, RN notes reviewed Mode of arrival: EMS Limitations: no limitations - History of Present Illness Initial Comments: 26-year-old male presents emergency from via EMS chief complaint nausea vomiting. Patient has had multiple recent visits with complaints of hyperglycemia, nausea vomiting. Patient was discharged yesterday. Patient states overnight he does not take any of his insulin. Patient states that his been vomiting denies any alcohol use last night but has had some recent alcohol use. Patient denies any fevers chills cough or cold like symptoms. He does complain of diffuse abdominal pain he refused IV from EMS. - Related Data Home Medications Medication Instructions Recorded Confirmed INSULIN ASPART (NovoLOG) [NovoLOG 10 unit SQ AC-TID 06/29/21 04/17/22 (formulary)] Gabapentin 600 mg PO TID 12/19/21 04/17/22 Insulin Detemir (Levemir) [Levemir] 25 unit SQ DAILY 04/11/22 04/17/22 Previous Rx's Medication Instructions Recorded Ondansetron Odt [Zofran Odt] 4 mg PO Q8HR PRN #10 tab 04/17/22 Allergies Allergy/AdvReac Type Severity Reaction Status Date / Time No Known Allergies Allergy Verified 04/17/22 10:26 Review of Systems ROS Statement: Those systems with pertinent positive or pertinent negative responses have been documented in the HPI. ROS Other: All systems not noted in ROS Statement are negative. Past Medical History Past Medical History: Asthma, Diabetes Mellitus, Neurologic Disorder, Skin Disorder Additional Past Medical History / Comment(s): IDDM type I, neuropathy bilateral feet, DKA, eczema. History of Any Multi-Drug Resistant Organisms: None Reported Past Surgical History: Adenoidectomy Additional Past Surgical History / Comment(s): 2002 Past Anesthesia/Blood Transfusion Reactions: No Reported Reaction Past Psychological History: Anxiety, Depression Smoking Status: Never smoker Past Alcohol Use History: Occasional Past Drug Use History: Marijuana - Past Family History Mother Family Medical History: CVA/TIA Additional Family Medical History / Comment(s): TIA Father Family Medical History: Hyperlipidemia, Hypertension Additional Family Medical History / Comment(s): . General Exam Limitations: no limitations General appearance: alert, in no apparent distress Head exam: Present: atraumatic, normocephalic, normal inspection Eye exam: Present: normal appearance, PERRL, EOMI. Absent: scleral icterus, conjunctival injection, periorbital swelling Neck exam: Present: normal inspection, full ROM. Absent: tenderness, meningismus, lymphadenopathy Respiratory exam: Present: normal lung sounds bilaterally. Absent: respiratory distress, wheezes, rales, rhonchi, stridor Cardiovascular Exam: Present: regular rate, normal rhythm, normal heart sounds. Absent: systolic murmur, diastolic murmur, rubs, gallop, clicks GI/Abdominal exam: Present: soft, tenderness, normal bowel sounds. Absent: distended, guarding, rebound, rigid Neurological exam: Present: alert Skin exam: Present: warm, dry, intact, normal color. Absent: rash Course Vital Signs 04/17/22 10:02 Temperature 97.8 F Pulse Rate 68 Respiratory 18 Rate Blood Pressure 148/98 O2 Sat by Pulse 99 Oximetry Medical Decision Making - Medical Decision Making 26-year-old well-known emergency from present for nausea vomiting hyperglycemia. Patient's lab work essentially unremarkable other than mild lactic acidosis. Patient was given 2 L of fluids. Patient we discharged with antiemetics return parameters were discussed. - Lab Data Result diagrams: 04/17/22 10:07 04/17/22 10:07 Lab Results 04/17/22 04/17/22 04/17/22 Range/Units 10:07 10:07 10:07 WBC 7.6 (3.8-10.6) k/uL RBC 4.47 (4.30-5.90) m/uL Hgb 14.3 (13.0-17.5) gm/dL Hct 40.5 (39.0-53.0) % MCV 90.5 (80.0-100.0) fL MCH 31.9 (25.0-35.0) pg MCHC 35.2 (31.0-37.0) g/dL RDW 13.1 (11.5-15.5) % Plt Count 341 (150-450) k/uL MPV 7.5 Neutrophils % 60 % Lymphocytes % 29 % Monocytes % 6 % Eosinophils % 3 % Basophils % 1 % Neutrophils # 4.6 (1.3-7.7) k/uL Lymphocytes # 2.2 (1.0-4.8) k/uL Monocytes # 0.4 (0-1.0) k/uL Eosinophils # 0.3 (0-0.7) k/uL Basophils # 0.1 (0-0.2) k/uL VBG pH (7.31-7.41) VBG pCO2 (37-51) mmHg VBG HCO3 (24-28) mmol/L Sodium 139 (137-145) mmol/L Potassium 3.9 (3.5-5.1) mmol/L Chloride 104 (98-107) mmol/L Carbon Dioxide 27 (22-30) mmol/L Anion Gap 8 mmol/L BUN 8 L (9-20) mg/dL Creatinine 0.69 (0.66-1.25) mg/dL Est GFR (CKD-EPI)AfAm >90 (>60 ml/min/1.73 sqM) Est GFR (CKD-EPI)NonAf >90 (>60 ml/min/1.73 sqM) Glucose 199 H (74-99) mg/dL Plasma Lactic Acid Len 3.9 H* (0.7-2.0) mmol/L Calcium 8.5 (8.4-10.2) mg/dL Total Bilirubin 0.4 (0.2-1.3) mg/dL AST 21 (17-59) U/L ALT 17 (4-49) U/L Alkaline Phosphatase 68 (38-126) U/L Total Protein 6.1 L (6.3-8.2) g/dL Albumin 4.0 (3.5-5.0) g/dL Lipase 74 (23-300) U/L 04/17/22 Range/Units 10:07 WBC (3.8-10.6) k/uL RBC (4.30-5.90) m/uL Hgb (13.0-17.5) gm/dL Hct (39.0-53.0) % MCV (80.0-100.0) fL MCH (25.0-35.0) pg MCHC (31.0-37.0) g/dL RDW (11.5-15.5) % Plt Count (150-450) k/uL MPV Neutrophils % % Lymphocytes % % Monocytes % % Eosinophils % % Basophils % % Neutrophils # (1.3-7.7) k/uL Lymphocytes # (1.0-4.8) k/uL Monocytes # (0-1.0) k/uL Eosinophils # (0-0.7) k/uL Basophils # (0-0.2) k/uL VBG pH 7.39 (7.31-7.41) VBG pCO2 47 (37-51) mmHg VBG HCO3 28 (24-28) mmol/L Sodium (137-145) mmol/L Potassium (3.5-5.1) mmol/L Chloride (98-107) mmol/L Carbon Dioxide (22-30) mmol/L Anion Gap mmol/L BUN (9-20) mg/dL Creatinine (0.66-1.25) mg/dL Est GFR (CKD-EPI)AfAm (>60 ml/min/1.73 sqM) Est GFR (CKD-EPI)NonAf (>60 ml/min/1.73 sqM) Glucose (74-99) mg/dL Plasma Lactic Acid Len (0.7-2.0) mmol/L Calcium (8.4-10.2) mg/dL Total Bilirubin (0.2-1.3) mg/dL AST (17-59) U/L ALT (4-49) U/L Alkaline Phosphatase (38-126) U/L Total Protein (6.3-8.2) g/dL Albumin (3.5-5.0) g/dL Lipase (23-300) U/L Disposition Clinical Impression: Hyperglycemia, Nausea & vomiting Disposition: HOME SELF-CARE Condition: Stable Instructions (If sedation given, give patient instructions): Acute Nausea and Vomiting (ED) Additional Instructions: Please return to the Emergency Department if symptoms worsen or any other concerns. Prescriptions: Ondansetron Odt [Zofran Odt] 4 mg PO Q8HR PRN #10 tab PRN Reason: Nausea Is patient prescribed a controlled substance at d/c from ED?: No Referrals: Brown Valenzuela MD [Primary Care Provider] - 1-2 days Time of Disposition: 11:53
[2022-04-17 10:47] LABS: Basophils # (A) 0.1 k/uL (0-0.2); Basophils % (A) 1 %; Eosinophils # (A) 0.3 k/uL (0-0.7); Eosinophils % (A) 3 %; HCT 40.5 % (39.0-53.0); HGB 14.3 gm/dL (13.0-17.5); Lymphocytes # (A) 2.2 k/uL (1.0-4.8); Lymphocytes % (A) 29 %; MCH 31.9 pg (25.0-35.0); MCHC 35.2 g/dL (31.0-37.0); MCV 90.5 fL (80.0-100.0); Mean Platelet Volume 7.5; Monocytes # (A) 0.4 k/uL (0-1.0); Monocytes % (A) 6 %; Neutrophils # (A) 4.6 k/uL (1.3-7.7); Neutrophils % (A) 60 %; Platelet Count 341 k/uL (150-450); RBC 4.47 m/uL (4.30-5.90); RDW 13.1 % (11.5-15.5); WBC 7.6 k/uL (3.8-10.6)
[2022-04-17] MEDS ORDERED: KETOROLAC 15 MG/ML 1 ML VIAL IVP STA (11:52)
[2022-04-17] MEDS ORDERED: LORazepam 2 MG/ML INJ IV STA (11:52)
[2022-04-17 12:26] VITALS: BP 151/96; PULSE 96
== END 2022-04-17 12:25 | disposition home or self-care (01) ==
LOC: EC 10:00
DX: E11.65 Type 2 diabetes mellitus with hyperglycemia (principal); R11.2 Nausea with vomiting, unspecified; J45.909 Unspecified asthma, uncomplicated; F41.9 Anxiety disorder, unspecified; F32.A Depression, unspecified; F12.90 Cannabis use, unspecified, uncomplicated; Z79.4 Long term (current) use of insulin; Z79.899 Other long term (current) drug therapy
CPT/HCPCS: 36415; 80053; 82803; 83605; 83690; 85025; 99284; 96374; 96375 ×4; 96361; J2060; J1200; J2765; J1885; J1790

== ENCOUNTER 2022-04-22 23:04 | Inpatient (IN) | payer OTHER ==
[2022-04-22 23:18] VITALS: TEMP 97.7
[2022-04-22 23:21] LABS: Glucose,Whole Blood 460 mg/dL (70-110)
[2022-04-22] MEDS ORDERED: SODIUM CHLORIDE 0.9% 1,000 ML IV STA (23:27)
[2022-04-22] MEDS ORDERED: ONDANSETRON 4 MG/2 ML VIAL IVP STA (23:27)
[2022-04-22 23:53] LABS: Basophils # (A) 0.1 k/uL (0-0.2); Basophils % (A) 1 %; Eosinophils # (A) 0.1 k/uL (0-0.7); Eosinophils % (A) 0 %; HCT 48.6 % (39.0-53.0); HGB 16.2 gm/dL (13.0-17.5); Lymphocytes # (A) 1.6 k/uL (1.0-4.8); Lymphocytes % (A) 12 %; MCH 31.9 pg (25.0-35.0); MCHC 33.3 g/dL (31.0-37.0); Monocytes # (A) 0.4 k/uL (0-1.0); Monocytes % (A) 3 %; Neutrophils # (A) 11.7 k/uL (1.3-7.7); Neutrophils % (A) 84 %; Platelet Count 474 k/uL (150-450); RBC 5.07 m/uL (4.30-5.90); RDW 12.7 % (11.5-15.5)
[2022-04-23 00:05] LABS: ALT 20 U/L (4-49); AST 20 U/L (17-59); African American GFR (CKD) >90 (>60 ml/min/1.73 sqM); Albumin 5.2 g/dL (3.5-5.0); Alkaline Phosphatase 108 U/L (38-126); Anion Gap 28 mmol/L; Blood Urea Nitrogen 21 mg/dL (9-20); Calcium 9.8 mg/dL (8.4-10.2); Carbon Dioxide 11 mmol/L (22-30); Chloride 95 mmol/L (98-107); Magnesium 2.1 mg/dL (1.6-2.3); Non-African American GFR(CKD) >90 (>60 ml/min/1.73 sqM); Phosphorus 4.8 mg/dL (2.5-4.5); Potassium 5.3 mmol/L (3.5-5.1); Sodium 134 mmol/L (137-145); Total Protein 7.7 g/dL (6.3-8.2)
[2022-04-23 00:10] LABS: Glucose 520 mg/dL (74-99)
[2022-04-23 00:28] LABS: MCV 95.7 fL (80.0-100.0)
[2022-04-23 00:53] LABS: Glucose,Whole Blood 445 mg/dL (70-110)
[2022-04-23] MEDS ORDERED: diphenhydrAMINE 50 MG/ML 1 ML VIAL IVP STA (00:53)
[2022-04-23] MEDS ORDERED: METOCLOPRAMIDE 5 MG/ML 2 ML VIAL IVP STA (00:53)
[2022-04-23] MEDS ORDERED: SODIUM CHLORIDE 0.9% 1,000 ML IV ONE (00:54)
--- NOTE | 2022-04-23 01:25 | ED ---
General Adult HPI - General Chief complaint: Nausea/Vomiting/Diarrhea Stated complaint: DKA Time Seen by Provider: 04/22/22 23:26 Source: patient Mode of arrival: wheelchair Limitations: no limitations - History of Present Illness Initial comments: 26-year-old male with past medical history of diabetes who presents to the emergency department with nausea, vomiting and high glucose. Patient states that he hasn't been able to eat anything today due to his nausea and vomiting. Because this he has not taken his postprandial insulin. He did take his long- acting insulin. Patient denies any medication changes. States that he has been compliant. He is unwilling to provide much history at this time therefore the HPI is limited - Related Data Home Medications Medication Instructions Recorded Confirmed INSULIN ASPART (NovoLOG) [NovoLOG 10 unit SQ AC-TID 06/29/21 04/24/22 (formulary)] Gabapentin 600 mg PO TID 12/19/21 04/24/22 Insulin Detemir (Levemir) [Levemir] 25 unit SQ DAILY 04/11/22 04/24/22 Previous Rx's Medication Instructions Recorded Ondansetron Odt [Zofran Odt] 4 mg PO Q8HR PRN #10 tab 04/17/22 Allergies Allergy/AdvReac Type Severity Reaction Status Date / Time No Known Allergies Allergy Verified 04/23/22 06:45 Review of Systems ROS Statement: Those systems with pertinent positive or pertinent negative responses have been documented in the HPI. ROS Other: All systems not noted in ROS Statement are negative. Past Medical History Past Medical History: Asthma, Diabetes Mellitus, Neurologic Disorder, Skin Disorder Additional Past Medical History / Comment(s): IDDM type I, neuropathy bilateral feet, DKA, eczema. History of Any Multi-Drug Resistant Organisms: None Reported Past Surgical History: Adenoidectomy Additional Past Surgical History / Comment(s): 2002 Past Anesthesia/Blood Transfusion Reactions: No Reported Reaction Past Psychological History: Anxiety, Depression Smoking Status: Never smoker Past Alcohol Use History: Occasional Past Drug Use History: Marijuana - Past Family History Mother Family Medical History: CVA/TIA Additional Family Medical History / Comment(s): TIA Father Family Medical History: Hyperlipidemia, Hypertension Additional Family Medical History / Comment(s): . General Exam Limitations: altered mental status General appearance: in no apparent distress, lethargic Head exam: Present: atraumatic, normocephalic, normal inspection Eye exam: Present: normal appearance, PERRL, EOMI. Absent: scleral icterus, conjunctival injection, periorbital swelling ENT exam: Present: normal exam, mucous membranes dry Neck exam: Present: normal inspection. Absent: tenderness, meningismus, lymphadenopathy Respiratory exam: Present: normal lung sounds bilaterally. Absent: respiratory distress, wheezes, rales, rhonchi, stridor Cardiovascular Exam: Present: normal rhythm, tachycardia, normal heart sounds. Absent: systolic murmur, diastolic murmur, rubs, gallop, clicks GI/Abdominal exam: Present: soft, normal bowel sounds. Absent: distended, tenderness, guarding, rebound, rigid Extremities exam: Present: normal inspection, full ROM, normal capillary refill. Absent: tenderness, pedal edema, joint swelling, calf tenderness Back exam: Present: normal inspection Neurological exam: Present: altered, CN II-XII intact Psychiatric exam: Present: flat affect Skin exam: Present: warm, dry, intact, normal color. Absent: rash Course Vital Signs 04/22/22 04/23/22 04/23/22 23:16 01:02 03:05 Temperature 97.7 F Pulse Rate 140 H 140 H 138 H Respiratory 20 30 H Rate Blood Pressure 148/78 131/83 O2 Sat by Pulse 100 97 Oximetry 04/23/22 04/23/22 04/23/22 04:00 04:36 04:47 Temperature Pulse Rate 118 H 121 H Respiratory 14 Rate Blood Pressure 99/63 O2 Sat by Pulse Oximetry 04/23/22 04/23/22 04/23/22 05:00 06:45 07:20 Temperature Pulse Rate 135 H 135 H 130 H Respiratory 18 Rate Blood Pressure O2 Sat by Pulse 98 Oximetry 04/23/22 04/23/22 04/23/22 08:00 09:58 11:05 Temperature Pulse Rate 124 H 114 H 123 H Respiratory 18 18 18 Rate Blood Pressure 94/57 106/60 114/72 O2 Sat by Pulse 96 97 96 Oximetry 04/23/22 04/23/22 04/23/22 15:08 16:20 18:08 Temperature Pulse Rate 106 H 96 105 H Respiratory 16 16 18 Rate Blood Pressure 118/88 135/96 140/98 O2 Sat by Pulse 97 100 99 Oximetry EKG Findings - EKG Comments: EKG Findings:: EKG demonstrates sinus tachycardia with a rate of 129. MS interval 126. QRS 93. QTC of 380. No acute ST segment elevations or depressions. EKG was interpreted by myself Medical Decision Making - Medical Decision Making Upon arrival patient was placed into trauma 2. A thorough history and physical exam was performed. IV access established. Patient was given a 2 L bolus of normal saline. Laboratory studies are conducted which demonstrated significant cyanosis of 14. Potassium 5.3. Lactic acid of 3.1. Glucose of 520. Patient is acetone positive. 4+ ketones in the urine. Patient started on insulin drip. He will be admitted to Dr. Valenzuela who is accepting of the admission. - Lab Data Result diagrams: 04/22/22 23:37 04/23/22 14:45 Lab Results 04/22/22 04/22/22 04/22/22 Range/Units 23:18 23:37 23:37 WBC 14.0 H (3.8-10.6) k/uL RBC 5.07 (4.30-5.90) m/uL Hgb 16.2 (13.0-17.5) gm/dL Hct 48.6 (39.0-53.0) % MCV 95.7 D (80.0-100.0) fL MCH 31.9 (25.0-35.0) pg MCHC 33.3 (31.0-37.0) g/dL RDW 12.7 (11.5-15.5) % Plt Count 474 H (150-450) k/uL MPV 8.0 Neutrophils % 84 % Lymphocytes % 12 % Monocytes % 3 % Eosinophils % 0 % Basophils % 1 % Neutrophils # 11.7 H (1.3-7.7) k/uL Lymphocytes # 1.6 (1.0-4.8) k/uL Monocytes # 0.4 (0-1.0) k/uL Eosinophils # 0.1 (0-0.7) k/uL Basophils # 0.1 (0-0.2) k/uL Sodium 134 L (137-145) mmol/L Potassium 5.3 H (3.5-5.1) mmol/L Chloride 95 L (98-107) mmol/L Carbon Dioxide 11 L (22-30) mmol/L Anion Gap 28 mmol/L BUN 21 H (9-20) mg/dL Creatinine 0.81 (0.66-1.25) mg/dL Est GFR (CKD-EPI)AfAm >90 (>60 ml/min/1.73 sqM) Est GFR (CKD-EPI)NonAf >90 (>60 ml/min/1.73 sqM) Glucose 520 H* (74-99) mg/dL POC Glucose (mg/dL) 460 H (70-110) mg/dL POC Glu Exhibitor Sales ID Rosy Reynaga Plasma Lactic Acid Len (0.7-2.0) mmol/L Calcium 9.8 (8.4-10.2) mg/dL Phosphorus 4.8 H (2.5-4.5) mg/dL Magnesium 2.1 (1.6-2.3) mg/dL Total Bilirubin 1.0 (0.2-1.3) mg/dL AST 20 (17-59) U/L ALT 20 (4-49) U/L Alkaline Phosphatase 108 (38-126) U/L Total Protein 7.7 (6.3-8.2) g/dL Albumin 5.2 H (3.5-5.0) g/dL Urine Color Urine Appearance (Clear) Urine pH (5.0-8.0) Ur Specific Baxter (1.001-1.035) Urine Protein (Negative) Urine Glucose (UA) (Negative) Urine Ketones (Negative) Urine Blood (Negative) Urine Nitrite (Negative) Urine Bilirubin (Negative) Urine Urobilinogen (<2.0) mg/dL Ur Leukocyte Esterase (Negative) Acetone, Qual Positive (Negative) 04/22/22 04/23/22 04/23/22 Range/Units 23:37 00:52 00:54 WBC (3.8-10.6) k/uL RBC (4.30-5.90) m/uL Hgb (13.0-17.5) gm/dL Hct (39.0-53.0) % MCV (80.0-100.0) fL MCH (25.0-35.0) pg MCHC (31.0-37.0) g/dL RDW (11.5-15.5) % Plt Count (150-450) k/uL MPV Neutrophils % % Lymphocytes % % Monocytes % % Eosinophils % % Basophils % % Neutrophils # (1.3-7.7) k/uL Lymphocytes # (1.0-4.8) k/uL Monocytes # (0-1.0) k/uL Eosinophils # (0-0.7) k/uL Basophils # (0-0.2) k/uL Sodium (137-145) mmol/L Potassium (3.5-5.1) mmol/L Chloride (98-107) mmol/L Carbon Dioxide (22-30) mmol/L Anion Gap mmol/L BUN (9-20) mg/dL Creatinine (0.66-1.25) mg/dL Est GFR (CKD-EPI)AfAm (>60 ml/min/1.73 sqM) Est GFR (CKD-EPI)NonAf (>60 ml/min/1.73 sqM) Glucose (74-99) mg/dL POC Glucose (mg/dL) 445 H (70-110) mg/dL POC Glu Exhibitor Sales ID Pao Weeks Plasma Lactic Acid Len 3.1 H* (0.7-2.0) mmol/L Calcium (8.4-10.2) mg/dL Phosphorus (2.5-4.5) mg/dL Magnesium (1.6-2.3) mg/dL Total Bilirubin (0.2-1.3) mg/dL AST (17-59) U/L ALT (4-49) U/L Alkaline Phosphatase (38-126) U/L Total Protein (6.3-8.2) g/dL Albumin (3.5-5.0) g/dL Urine Color Colorless Urine Appearance Clear (Clear) Urine pH 5.0 (5.0-8.0) Ur Specific Baxter 1.029 (1.001-1.035) Urine Protein Negative (Negative) Urine Glucose (UA) 4+ H (Negative) Urine Ketones 4+ H (Negative) Urine Blood Negative (Negative) Urine Nitrite Negative (Negative) Urine Bilirubin Negative (Negative) Urine Urobilinogen <2.0 (<2.0) mg/dL Ur Leukocyte Esterase Negative (Negative) Acetone, Qual (Negative) Critical Care Time Critical Care Time: Yes Critical Care Time: 35 minutes Disposition Clinical Impression: DKA (diabetic ketoacidoses), Intractable nausea and vomiting Disposition: ADMITTED IP TO THIS HOSP Condition: Stable Is patient prescribed a controlled substance at d/c from ED?: No Time of Disposition: :25 Decision to Admit Reason: Admit from EC Decision Date: 04/23/22 Decision Time: :25
[2022-04-23] MEDS ORDERED: INSULIN REGULAR 100 UNIT in SODIUM CHLORIDE 0.9% 100 ML IV SCH (01:30)
[2022-04-23 01:42] LABS: Appearance,Urine Clear (Clear); Bilirubin,Urine Negative (Negative); Blood,Urine Negative (Negative); Color,Urine Colorless; Glucose,Urine (UA) 4+ (Negative); Leukocyte Esterase,Urine Negative (Negative); Nitrite,Urine Negative (Negative); Protein,Urine Negative (Negative); Specific Gravity,Urine 1.029 (1.001-1.035); Urobilinogen,Urine <2.0 mg/dL (<2.0)
[2022-04-23 01:44] LABS: Ketones,Urine 4+ (Negative)
[2022-04-23] MEDS: SODIUM CHLORIDE 0.9% 1,000 ML IV SCH ×2 (01:54→07:40)
[2022-04-23 02:06] LABS: Glucose,Whole Blood 466 mg/dL (70-110)
[2022-04-23 02:39] LABS: Glucose,Whole Blood 416 mg/dL (70-110)
[2022-04-23 03:05] LABS: African American GFR (CKD) >90 (>60 ml/min/1.73 sqM); Anion Gap 23 mmol/L; Blood Urea Nitrogen 21 mg/dL (9-20); Chloride 104 mmol/L (98-107); Glucose 462 mg/dL (74-99); Non-African American GFR(CKD) >90 (>60 ml/min/1.73 sqM); Phosphorus 4.1 mg/dL (2.5-4.5); Sodium 135 mmol/L (137-145)
[2022-04-23 03:23] LABS: Potassium 6.1 mmol/L (3.5-5.1)
[2022-04-23 03:25] LABS: Carbon Dioxide 8 mmol/L (22-30)
[2022-04-23] MEDS ORDERED: INSULIN REGULAR 100 UNIT/ML VIAL (IV) IV ONE (03:44)
[2022-04-23] MEDS ORDERED: ALBUTEROL NEBULIZED 2.5 MG/3 ML INHALATION STA (03:44)
[2022-04-23 03:48] LABS: Glucose,Whole Blood 312 mg/dL (70-110)
[2022-04-23 04:53] LABS: Glucose,Whole Blood 245 mg/dL (70-110)
[2022-04-23 05:54] LABS: Glucose,Whole Blood 248 mg/dL (70-110)
[2022-04-23 06:47] LABS: Glucose,Whole Blood 203 mg/dL (70-110)
[2022-04-23] MEDS: D5-0.45% NACL WITH KCL 20MEQ/L 1,000 ML IV SCH ×2 (07:42→15:10)
[2022-04-23 07:53] LABS: Glucose,Whole Blood 160 mg/dL (70-110)
[2022-04-23 08:58] LABS: Glucose,Whole Blood 192 mg/dL (70-110)
[2022-04-23 09:57] LABS: Glucose,Whole Blood 143 mg/dL (70-110)
[2022-04-23 10:59] LABS: Glucose,Whole Blood 128 mg/dL (70-110)
[2022-04-23 11:08] LABS: African American GFR (CKD) >90 (>60 ml/min/1.73 sqM); Anion Gap 19 mmol/L; Blood Urea Nitrogen 21 mg/dL (9-20); Carbon Dioxide 13 mmol/L (22-30); Chloride 107 mmol/L (98-107); Glucose 190 mg/dL (74-99); Non-African American GFR(CKD) >90 (>60 ml/min/1.73 sqM); Potassium 4.2 mmol/L (3.5-5.1); Sodium 139 mmol/L (137-145)
[2022-04-23 11:51] LABS: Glucose,Whole Blood 168 mg/dL (70-110)
[2022-04-23] MEDS ORDERED: ONDANSETRON ODT 4 MG TAB PO PRN (12:28)
[2022-04-23] MEDS ORDERED: INSULIN ASPART (NovoLOG) 100 UNIT/ML VIAL SQ SCH ×2 (12:30→17:30)
[2022-04-23 13:05] LABS: Glucose,Whole Blood 223 mg/dL (70-110)
[2022-04-23 15:08] LABS: Glucose,Whole Blood 226 mg/dL (70-110)
[2022-04-23 15:20] LABS: African American GFR (CKD) >90 (>60 ml/min/1.73 sqM); Anion Gap 10 mmol/L; Blood Urea Nitrogen 19 mg/dL (9-20); Calcium 8.1 mg/dL (8.4-10.2); Carbon Dioxide 24 mmol/L (22-30); Chloride 98 mmol/L (98-107); Glucose 203 mg/dL (74-99); Non-African American GFR(CKD) >90 (>60 ml/min/1.73 sqM); Potassium 4.3 mmol/L (3.5-5.1); Sodium 132 mmol/L (137-145)
[2022-04-23] MEDS ORDERED: GABAPENTIN 300 MG CAP PO SCH (16:00)
[2022-04-23 16:19] LABS: Glucose,Whole Blood 301 mg/dL (70-110)
[2022-04-23] MEDS ORDERED: DEXTROSE 50% SYRINGE 50 ML IVP PRN ×2 (16:31)
[2022-04-23 17:50] LABS: Glucose,Whole Blood 365 mg/dL (70-110)
[2022-04-23 18:11] VITALS: BP 140/98; PULSE 105; RESP 18
--- NOTE | 2022-04-24 03:43 | HP ---
HISTORY AND PHYSICAL CHIEF COMPLAINT: DKA. HISTORY OF PRESENT ILLNESS: This is another recent admission for this 26-year-old type 1 insulin-dependent diabetic. He was just discharged the other day. He actually left AMA, which is what he usually does. He came back in again this time with a blood sugar over 400 and an anion gap of 28. He was nauseated, vomiting. REVIEW OF SYSTEMS: He had no other complaints and no other history was available. Past medical history, family history, personal and social histories can be found in his previous documents and are unchanged. He does not take his insulin. He drinks alcohol. PHYSICAL EXAMINATION: VITAL SIGNS: Blood pressure is 115/73 with a pulse of 98, respirations of 42, and he is afebrile. GENERAL: He appeared to be lethargic, dehydrated. HEAD, EARS, EYES, NOSE, MOUTH, AND THROAT: Unchanged. Mucous membranes are very dry. NECK: Supple. CHEST: Clear. CARDIAC: Demonstrated normal sinus rhythm with no murmurs or extra sounds. ABDOMEN: Flat and soft. EXTREMITIES: Normal. NEUROLOGICAL: He was somewhat lethargic. ASSESSMENT: He is admitted to the hospital with the diagnoses: 1. Diabetic ketoacidosis. 2. Noncompliant type 1 insulin-dependent diabetic. 3. Dehydration. 4. Depression. PLAN: 1. Bed rest. 2. DKA protocol once again. MMSHANEL / TRAMN: [id number] /
[2022-04-24] MEDS ORDERED: INSULIN DETEMIR (LEVEMIR) 100 UNIT/ML SYR SQ SCH (09:00)
--- NOTE | 2022-04-26 03:14 | DS ---
DISCHARGE SUMMARY CHIEF COMPLAINT: DKA. HISTORY OF PRESENT ILLNESS AND PHYSICAL EXAMINATION: Details of this man's history and physical can be found in the initial workup. LABORATORY STUDIES: While he was in the hospital, he had laboratory studies, details of which can be found in the laboratory section of his chart. COURSE IN THE HOSPITAL: After admission, he was placed on bedrest and started on intravenous fluids and DKA protocol. Responding fairly well and became more awake and alert and vomiting stopped. He signed himself out against medical advice. FINAL DIAGNOSES: 1. Diabetic ketoacidosis. 2. Dehydration. 3. Depression. 4. Uncontrolled type 1 insulin-dependent diabetes mellitus due to noncompliance. OPERATIONS: None. CONSULTATIONS: None. He is improved. MMODL / IJN: [id number] /
== END 2022-04-23 20:08 | disposition left against medical advice (07) | DRG 639 ==
LOC: EC 23:04 → 3SCARD 04-23 01:25 → 5NMEDONC 04-23 16:27
PROVIDERS: ADMIT Family Medicine; ATTEND Family Medicine
DX: E10.10 Type 1 diabetes mellitus with ketoacidosis without coma (principal); E10.40 Type 1 diabetes mellitus with diabetic neuropathy, unspecified; Z79.4 Long term (current) use of insulin; Z28.310 Unvaccinated for COVID-19; E86.0 Dehydration; F32.A Depression, unspecified; J45.909 Unspecified asthma, uncomplicated; L30.9 Dermatitis, unspecified; F41.9 Anxiety disorder, unspecified; Z79.899 Other long term (current) drug therapy; Z53.29 Procedure and treatment not carried out because of patient's decision for other reasons; Z91.199 Patient's noncompliance with other medical treatment and regimen due to unspecified reason
CPT/HCPCS: 36415; 80048; 80051; 80053; 81003; 82009; 82565; 82947; 83036; 83605; 83735; 84100; 84132; 84520; 85025; 93005; 96361; 96374; 96375; 99285

== ENCOUNTER 2022-04-24 10:56 | Inpatient (IN) | payer OTHER ==
[2022-04-24] MEDS ORDERED: SODIUM CHLORIDE 0.9% 2,000 ML IV STA (11:00)
[2022-04-24 11:45] LABS: ALT 19 U/L (4-49); AST 20 U/L (17-59); African American GFR (CKD) >90 (>60 ml/min/1.73 sqM); Albumin 5.4 g/dL (3.5-5.0); Alkaline Phosphatase 116 U/L (38-126); Amylase 54 U/L (30-110); Anion Gap 31 mmol/L; Blood Urea Nitrogen 19 mg/dL (9-20); Calcium 9.4 mg/dL (8.4-10.2); Chloride 97 mmol/L (98-107); Lipase 43 U/L (23-300); Magnesium 2.2 mg/dL (1.6-2.3); Non-African American GFR(CKD) >90 (>60 ml/min/1.73 sqM); Potassium 5.8 mmol/L (3.5-5.1); Sodium 134 mmol/L (137-145); Total Bilirubin 0.9 mg/dL (0.2-1.3); Total Protein 7.8 g/dL (6.3-8.2)
[2022-04-24 11:52] LABS: Carbon Dioxide 6 mmol/L (22-30); Glucose 601 mg/dL (74-99)
[2022-04-24 11:54] LABS: Basophils # (A) 0.1 k/uL (0-0.2); Basophils % (A) 0 %; Eosinophils # (A) 0.1 k/uL (0-0.7); Eosinophils % (A) 0 %; Hypochromasia Slight; Lymphocytes # (A) 1.6 k/uL (1.0-4.8); Lymphocytes % (A) 9 %; MCH 31.9 pg (25.0-35.0); MCHC 32.5 g/dL (31.0-37.0); MCV 97.9 fL (80.0-100.0); Mean Platelet Volume 7.7; Monocytes # (A) 0.5 k/uL (0-1.0); Monocytes % (A) 3 %; Neutrophils # (A) 15.4 k/uL (1.3-7.7); Neutrophils % (A) 87 %; Platelet Count 427 k/uL (150-450); RDW 12.7 % (11.5-15.5); WBC 17.8 k/uL (3.8-10.6)
[2022-04-24 12:22] LABS: VBG PH 7.16 (7.31-7.41)
--- NOTE | 2022-04-24 12:35 | ED ---
General Adult HPI - General Chief complaint: Nausea/Vomiting/Diarrhea Stated complaint: vomiting Time Seen by Provider: 04/24/22 10:57 Source: patient, EMS, RN notes reviewed Mode of arrival: EMS Limitations: no limitations - History of Present Illness Initial comments: 26-year-old male presents emergency Department with chief complaint of nausea vomiting her progressing September. Patient has had multiple recent ER visits for similar complaints patient was admitted yesterday and patient signed out AGAINST MEDICAL ADVICE. Patient cannot tolerate any oral intake. Blood sugar has been reading high. Patient refused meds by EMS. Patient denies any fevers or chills does complain of abdominal pain from his emesis. Denies reports fever headache has not taken any recent insulin. - Related Data Home Medications Medication Instructions Recorded Confirmed INSULIN ASPART (NovoLOG) [NovoLOG 10 unit SQ AC-TID 06/29/21 04/24/22 (formulary)] Gabapentin 600 mg PO TID 12/19/21 04/24/22 Insulin Detemir (Levemir) [Levemir] 25 unit SQ DAILY 04/11/22 04/24/22 Previous Rx's Medication Instructions Recorded Ondansetron Odt [Zofran Odt] 4 mg PO Q8HR PRN #10 tab 04/17/22 Allergies Allergy/AdvReac Type Severity Reaction Status Date / Time No Known Allergies Allergy Verified 04/23/22 06:45 Review of Systems ROS Statement: Those systems with pertinent positive or pertinent negative responses have been documented in the HPI. ROS Other: All systems not noted in ROS Statement are negative. Past Medical History Past Medical History: Asthma, Diabetes Mellitus, Neurologic Disorder, Skin Disorder Additional Past Medical History / Comment(s): IDDM type I, neuropathy bilateral feet, DKA, eczema. History of Any Multi-Drug Resistant Organisms: None Reported Past Surgical History: Adenoidectomy Additional Past Surgical History / Comment(s): 2002 Past Anesthesia/Blood Transfusion Reactions: No Reported Reaction Past Psychological History: Anxiety, Depression Smoking Status: Vaper Past Alcohol Use History: None Reported Past Drug Use History: None Reported - Past Family History Mother Family Medical History: CVA/TIA Additional Family Medical History / Comment(s): TIA Father Family Medical History: Hyperlipidemia, Hypertension Additional Family Medical History / Comment(s): . General Exam Limitations: no limitations General appearance: alert, in no apparent distress Head exam: Present: atraumatic, normocephalic, normal inspection Eye exam: Present: normal appearance, PERRL, EOMI. Absent: scleral icterus, conjunctival injection, periorbital swelling ENT exam: Present: normal exam, normal oropharynx, mucous membranes moist Neck exam: Present: normal inspection, full ROM. Absent: tenderness, mening ismus, lymphadenopathy Respiratory exam: Present: normal lung sounds bilaterally. Absent: respiratory distress, wheezes, rales, rhonchi, stridor Cardiovascular Exam: Present: normal rhythm, tachycardia, normal heart sounds. Absent: systolic murmur, diastolic murmur, rubs, gallop, clicks GI/Abdominal exam: Present: soft, tenderness, normal bowel sounds. Absent: distended, guarding, rebound, rigid Neurological exam: Present: alert Skin exam: Present: warm, dry, intact, normal color. Absent: rash Course Vital Signs 04/24/22 10:59 Temperature 97.5 F L Pulse Rate 131 H Respiratory 18 Rate Blood Pressure 156/101 O2 Sat by Pulse 100 Oximetry EKG Findings - EKG Comments: EKG Findings:: EKG performed at 11:14 sinus tachycardia rate of 134 VA 143 QRS 94 QT/QTC 310/389 - EKG Results: EKG: interpreted by JOANNE Medical Decision Making - Medical Decision Making 26-year-old male presented for hyperglycemia nausea vomiting. Patient's found to be in DKA. Patient has VBG of 7.16, 22, 8 patient was started DKA protocol. Patient was given initial fluid bolus of 2 L, started on insulin drip. Patient does have mild hyperkalemia which she'll be monitored EKG does not show any acute changes other than sinus tachycardia. states his glucose 601. Patient's vomiting did improve after antiemetics. Case discussed with Dr. Valenzuela. Consult to psychiatric services as requested - Lab Data Result diagrams: 04/24/22 11:04/24/22 11: Lab Results 04/24/22 04/24/22 04/24/22 Range/Units 11: 11: 11: WBC 17.8 H (3.8-10.6) k/uL RBC 4.70 (4.30-5.90) m/uL Hgb 15.0 (13.0-17.5) gm/dL Hct 46.0 (39.0-53.0) % MCV 97.9 (80.0-100.0) fL MCH 31.9 (25.0-35.0) pg MCHC 32.5 (31.0-37.0) g/dL RDW 12.7 (11.5-15.5) % Plt Count 427 (150-450) k/uL MPV 7.7 Neutrophils % 87 % Lymphocytes % 9 % Monocytes % 3 % Eosinophils % 0 % Basophils % 0 % Neutrophils # 15.4 H (1.3-7.7) k/uL Lymphocytes # 1.6 (1.0-4.8) k/uL Monocytes # 0.5 (0-1.0) k/uL Eosinophils # 0.1 (0-0.7) k/uL Basophils # 0.1 (0-0.2) k/uL Hypochromasia Slight VBG pH (7.31-7.41) VBG pCO2 (37-51) mmHg VBG HCO3 (24-28) mmol/L Sodium 134 L (137-145) mmol/L Potassium 5.8 H (3.5-5.1) mmol/L Chloride 97 L (98-107) mmol/L Carbon Dioxide 6 L* (22-30) mmol/L Anion Gap 31 mmol/L BUN 19 (9-20) mg/dL Creatinine 0.97 (0.66-1.25) mg/dL Est GFR (CKD-EPI)AfAm >90 (>60 ml/min/1.73 sqM) Est GFR (CKD-EPI)NonAf >90 (>60 ml/min/1.73 sqM) Glucose 601 H* (74-99) mg/dL Plasma Lactic Acid Len 3.1 H* (0.7-2.0) mmol/L Calcium 9.4 (8.4-10.2) mg/dL Magnesium 2.2 (1.6-2.3) mg/dL Total Bilirubin 0.9 (0.2-1.3) mg/dL AST 20 (17-59) U/L ALT 19 (4-49) U/L Alkaline Phosphatase 116 (38-126) U/L Total Protein 7.8 (6.3-8.2) g/dL Albumin 5.4 H (3.5-5.0) g/dL Amylase 54 (30-110) U/L Lipase 43 (23-300) U/L Acetone, Qual Positive (Negative) 04/24/22 Range/Units 11:25 WBC (3.8-10.6) k/uL RBC (4.30-5.90) m/uL Hgb (13.0-17.5) gm/dL Hct (39.0-53.0) % MCV (80.0-100.0) fL MCH (25.0-35.0) pg MCHC (31.0-37.0) g/dL RDW (11.5-15.5) % Plt Count (150-450) k/uL MPV Neutrophils % % Lymphocytes % % Monocytes % % Eosinophils % % Basophils % % Neutrophils # (1.3-7.7) k/uL Lymphocytes # (1.0-4.8) k/uL Monocytes # (0-1.0) k/uL Eosinophils # (0-0.7) k/uL Basophils # (0-0.2) k/uL Hypochromasia VBG pH 7.16 L* (7.31-7.41) VBG pCO2 22 L (37-51) mmHg VBG HCO3 8 L* (24-28) mmol/L Sodium (137-145) mmol/L Potassium (3.5-5.1) mmol/L Chloride (98-107) mmol/L Carbon Dioxide (22-30) mmol/L Anion Gap mmol/L BUN (9-20) mg/dL Creatinine (0.66-1.25) mg/dL Est GFR (CKD-EPI)AfAm (>60 ml/min/1.73 sqM) Est GFR (CKD-EPI)NonAf (>60 ml/min/1.73 sqM) Glucose (74-99) mg/dL Plasma Lactic Acid Len (0.7-2.0) mmol/L Calcium (8.4-10.2) mg/dL Magnesium (1.6-2.3) mg/dL Total Bilirubin (0.2-1.3) mg/dL AST (17-59) U/L ALT (4-49) U/L Alkaline Phosphatase (38-126) U/L Total Protein (6.3-8.2) g/dL Albumin (3.5-5.0) g/dL Amylase (30-110) U/L Lipase (23-300) U/L Acetone, Qual (Negative) Critical Care Time Critical Care Time: Yes Total Critical Care Time: 35 Disposition Clinical Impression: DKA (diabetic ketoacidoses), Intractable nausea and vomiting Disposition: ADMITTED IP TO THIS [facility] Condition: Serious Referrals: Brown Valenzuela MD [Primary Care Provider] - 1-2 days Time of Disposition: 13:31
[2022-04-24] MEDS: SODIUM CHLORIDE 0.9% 1,000 ML IV SCH ×2 (14:27→18:43)
[2022-04-24] MEDS: INSULIN REGULAR 100 UNIT in SODIUM CHLORIDE 0.9% 100 ML IV SCH (14:28)
--- NOTE | 2022-04-24 14:33 | P.CN ---
Psychiatric Consult - . Consult date: 04/24/22 Consult:: 04/24/22 14:30 Consult was placed today for patient for psychiatric evaluation regarding patient's depression and poor decision making. Patient has had several psychiatric admissions and several admissions to the medical floors and ER for noncompliance with treatment for his diabetes and also depression. Patient apparently came yesterday to the ER however signed AMA and returned with a blood sugar of 601. Patient's heart rate today was 131. Patient's WBC count was 17.8. Patient was extrinsic nausea and vomiting. Gripper Attacher spoke with patient's nurse in the hallway today. Patient was seen lying in bed and appeared to be somnolent and appeared to be ill. He was breathing deeply. He was too somnolent and ill and refused to speak to senior medical writer at this time. Will follow along and attempt to re-see patient tomorrow. continue with medical mgt of DKA.
[2022-04-24 14:43] LABS: Appearance,Urine Clear (Clear); Bilirubin,Urine Negative (Negative); Blood,Urine Negative (Negative); Color,Urine Colorless; Glucose,Urine (UA) 4+ (Negative); Leukocyte Esterase,Urine Negative (Negative); Nitrite,Urine Negative (Negative); Protein,Urine Negative (Negative); Specific Gravity,Urine 1.025 (1.001-1.035); Urobilinogen,Urine <2.0 mg/dL (<2.0)
[2022-04-24 14:50] LABS: Ketones,Urine 4+ (Negative)
[2022-04-24 15:21] LABS: Glucose,Whole Blood 527 mg/dL (70-110)
[2022-04-24 16:06] LABS: Glucose,Whole Blood 360 mg/dL (70-110)
[2022-04-24 17:02] LABS: African American GFR (CKD) >90 (>60 ml/min/1.73 sqM); Anion Gap 25 mmol/L; Blood Urea Nitrogen 21 mg/dL (9-20); Carbon Dioxide 7 mmol/L (22-30); Chloride 108 mmol/L (98-107); Glucose 340 mg/dL (74-99); Non-African American GFR(CKD) >90 (>60 ml/min/1.73 sqM); Potassium 5.6 mmol/L (3.5-5.1); Sodium 140 mmol/L (137-145)
[2022-04-24 17:05] LABS: Glucose,Whole Blood 230 mg/dL (70-110)
[2022-04-24] MEDS: D5-0.45% NACL WITH KCL 20MEQ/L 1,000 ML IV SCH ×2 (17:05→23:45)
[2022-04-24 17:56] LABS: Glucose,Whole Blood 213 mg/dL (70-110)
[2022-04-24 18:15] LABS: Glucose,Whole Blood 205 mg/dL (70-110)
[2022-04-24 19:03] LABS: Glucose,Whole Blood 165 mg/dL (70-110)
[2022-04-24 20:14] LABS: Glucose,Whole Blood 150 mg/dL (70-110)
[2022-04-24 21:04] LABS: Glucose,Whole Blood 135 mg/dL (70-110)
[2022-04-24 21:12] LABS: African American GFR (CKD) >90 (>60 ml/min/1.73 sqM); Anion Gap 15 mmol/L; Blood Urea Nitrogen 20 mg/dL (9-20); Carbon Dioxide 15 mmol/L (22-30); Chloride 109 mmol/L (98-107); Glucose 152 mg/dL (74-99); Non-African American GFR(CKD) >90 (>60 ml/min/1.73 sqM); Potassium 4.8 mmol/L (3.5-5.1); Sodium 139 mmol/L (137-145)
[2022-04-24 22:04] LABS: Glucose,Whole Blood 127 mg/dL (70-110)
[2022-04-24 23:14] LABS: Glucose,Whole Blood 194 mg/dL (70-110)
[2022-04-24 23:55] LABS: Glucose,Whole Blood 216 mg/dL (70-110)
[2022-04-25 00:49] LABS: ALT 16 U/L (4-49); AST 16 U/L (17-59); African American GFR (CKD) >90 (>60 ml/min/1.73 sqM); Albumin 4.7 g/dL (3.5-5.0); Alkaline Phosphatase 90 U/L (38-126); Anion Gap 18 mmol/L; Blood Urea Nitrogen 18 mg/dL (9-20); Calcium 8.6 mg/dL (8.4-10.2); Carbon Dioxide 11 mmol/L (22-30); Chloride 106 mmol/L (98-107); Glucose 230 mg/dL (74-99); Magnesium 2.2 mg/dL (1.6-2.3); Non-African American GFR(CKD) >90 (>60 ml/min/1.73 sqM); Phosphorus 2.8 mg/dL (2.5-4.5); Potassium 5.2 mmol/L (3.5-5.1); Sodium 135 mmol/L (137-145); Total Bilirubin 0.5 mg/dL (0.2-1.3); Total Protein 7.1 g/dL (6.3-8.2)
[2022-04-25 01:22] LABS: Glucose,Whole Blood 266 mg/dL (70-110)
[2022-04-25] MEDS: INSULIN REGULAR 100 UNIT in SODIUM CHLORIDE 0.9% 100 ML IV SCH (01:26)
[2022-04-25 02:25] LABS: Glucose,Whole Blood 223 mg/dL (70-110)
[2022-04-25 03:29] LABS: Glucose,Whole Blood 210 mg/dL (70-110)
[2022-04-25] MEDS: D5-0.45% NACL WITH KCL 20MEQ/L 1,000 ML IV SCH (04:45)
[2022-04-25 04:52] LABS: Glucose,Whole Blood 163 mg/dL (70-110)
[2022-04-25 05:37] LABS: Glucose,Whole Blood 177 mg/dL (70-110)
[2022-04-25 06:27] LABS: Glucose,Whole Blood 184 mg/dL (70-110)
[2022-04-25 06:51] LABS: ALT 15 U/L (4-49); AST 15 U/L (17-59); African American GFR (CKD) >90 (>60 ml/min/1.73 sqM); Albumin 4.5 g/dL (3.5-5.0); Alkaline Phosphatase 84 U/L (38-126); Anion Gap 13 mmol/L; Blood Urea Nitrogen 15 mg/dL (9-20); Calcium 8.5 mg/dL (8.4-10.2); Carbon Dioxide 16 mmol/L (22-30); Chloride 104 mmol/L (98-107); Glucose 181 mg/dL (74-99); Magnesium 1.9 mg/dL (1.6-2.3); Non-African American GFR(CKD) >90 (>60 ml/min/1.73 sqM); Phosphorus 2.3 mg/dL (2.5-4.5); Potassium 4.6 mmol/L (3.5-5.1); Sodium 133 mmol/L (137-145); Total Bilirubin 0.7 mg/dL (0.2-1.3); Total Protein 6.8 g/dL (6.3-8.2)
[2022-04-25 07:26] LABS: Glucose,Whole Blood 182 mg/dL (70-110)
[2022-04-25 08:12] LABS: Glucose,Whole Blood 183 mg/dL (70-110)
[2022-04-25 08:58] LABS: Glucose,Whole Blood 199 mg/dL (70-110)
[2022-04-25 09:59] LABS: Glucose,Whole Blood 191 mg/dL (70-110)
[2022-04-25] MEDS ORDERED: DEXTROSE 50% SYRINGE 50 ML IVP PRN (10:04)
[2022-04-25 11:08] LABS: Glucose,Whole Blood 191 mg/dL (70-110)
[2022-04-25 11:58] VITALS: RESP 14
[2022-04-25] MEDS ORDERED: SODIUM CHLORIDE 0.9% 1,000 ML IV SCH (12:00)
[2022-04-25 12:06] LABS: Glucose,Whole Blood 204 mg/dL (70-110)
[2022-04-25 12:09] VITALS: BMI 20.9
--- NOTE | 2022-04-25 12:11 | P.CNPUL ---
History of Present Illness Consult date: 04/25/22 Requesting physician: Brown Valenzuela Reason for consult: other (Acute diabetic ketoacidosis) Chief complaint: Nausea vomiting and diarrhea History of present illness: This is a 26-year-old white male with history of type 1 diabetes, admitted yesterday with a 1 day history of nausea vomiting and diarrhea, patient could not tolerate any oral intake. His blood sugars have been running high, patient was evaluated in the ER, and he was noted to be in DKA. Compliance with his insulin is questionable. Patient was admitted, placed on the DKA protocol, and I'm seeing him today on consultation. Remains on a low dose insulin drip 1.8 units per hour, patient is doing much better, his anion gap has closed patient is feeling better overall. Hence I plan to transition the patient to Levemir insulin, subcu NovoLog insulin, and possibly transfer the patient out of the ICU today. He'll be placed on IV fluid in the form of 0.9 normal saline, and he will go on ADA diet. Labs today showed relatively normal electrolytes, his anion gap is 13 his renal profile is normal, and his blood sugar is in the range of 190, patient had the 54 5 running at 1 50 mL per hour with potassium. Review of Systems Constitutional: Reports weakness, Denies chills, Denies fever Eyes: denies blurred vision, denies pain Ears, nose, mouth and throat: Denies headache, Denies sore throat Cardiovascular: Denies chest pain, Denies shortness of breath Respiratory: Denies cough Gastrointestinal: As noted in HPI. Musculoskeletal: Denies myalgias Integumentary: Denies pruritus, Denies rash Neurological: Denies numbness, Denies weakness Psychiatric: Denies anxiety, Denies depression Endocrine: Denies fatigue, Denies weight change Past Medical History Past Medical History: Asthma, Diabetes Mellitus, Neurologic Disorder, Skin Disorder Additional Past Medical History / Comment(s): IDDM type I, neuropathy bilateral feet, DKA, eczema. History of Any Multi-Drug Resistant Organisms: None Reported Past Surgical History: Adenoidectomy Additional Past Surgical History / Comment(s): 2002 Past Anesthesia/Blood Transfusion Reactions: No Reported Reaction Smoking Status: Vaper - Past Family History Mother Family Medical History: CVA/TIA Additional Family Medical History / Comment(s): TIA Father Family Medical History: Hyperlipidemia, Hypertension Additional Family Medical History / Comment(s): . Medications and Allergies Home Medications Medication Instructions Recorded Confirmed Type INSULIN ASPART (NovoLOG) [NovoLOG 10 unit SQ AC-TID 06/29/21 04/24/22 History (formulary)] Gabapentin 600 mg PO TID 12/19/21 04/24/22 History Insulin Detemir (Levemir) [Levemir] 25 unit SQ DAILY 04/11/22 04/24/22 History Ondansetron Odt [Zofran Odt] 4 mg PO Q8HR PRN #10 tab 04/17/22 04/24/22 Rx Allergies Allergy/AdvReac Type Severity Reaction Status Date / Time No Known Allergies Allergy Verified 04/23/22 06:45 Physical Exam Vitals: Vital Signs Temp Pulse Resp BP Pulse Ox 04/25/22 11:00 98 14 114/86 97 04/25/22 10:00 114 H 19 126/92 97 04/25/22 09:00 97 14 117/82 97 04/25/22 08:00 98.0 F 100 16 115/80 97 04/25/22 07:00 101 H 7 L 115/83 97 04/25/22 06:00 125 H 10 L 143/98 97 04/25/22 05:00 120 H 10 L 120/78 97 04/25/22 04:00 112 H 16 114/76 97 04/25/22 03:00 113 H 15 142/72 96 04/25/22 02:00 114 H 14 128/86 97 04/25/22 01:00 114 H 14 107/71 97 04/25/22 00:12 117 H 13 127/80 97 04/25/22 00:00 117 H 15 127/80 97 04/24/22 23:00 118 H 14 113/61 96 04/24/22 22:00 129 H 13 103/66 97 04/24/22 21:00 123 H 14 116/65 96 04/24/22 20:00 129 H 15 117/68 96 04/24/22 19:00 130 H 14 113/70 96 04/24/22 18:00 135 H 27 H 106/69 97 04/24/22 17:00 128 H 14 112/68 97 04/24/22 16:00 131 H 15 103/75 97 04/24/22 15:30 141 H 16 97 04/24/22 15:20 97.5 F L 142 H 17 131/92 97 Intake and Output 04/24/22 04/25/22 04/25/22 22:59 06:59 14:59 Intake Total 7900.064 7434.876 769.561 Output Total 1110 500 600 Balance 84.806 702.876 169.561 Intake: IV 600 D5-0.45% NaCl with KCl 600 20Meq/l 1,000 ml @ 150 mls/hr IV .[id number] YAEL Rx# :[id number] Intake, IV Titration 3088.658 1091.876 169.561 Amount D5-0.45% NaCl with KCl 750 1200 150 20Meq/l 1,000 ml @ 150 mls/hr IV .Q6H40M YAEL Rx# :[id number] Insulin Regular 100 unit 44.806 2.876 19.561 In Sodium Chloride 0.9% 100 ml @ 0.1 UNITS/KG/HR 6.872 mls/hr IV .[id number] [facility] Rx#:[id number] Sodium Chloride 0.9% 1, 400 000 ml @ 200 mls/hr IV . Q5H [facility] Rx#:[id number] Output: Urine 1110 500 600 Other: Voiding Method Urinal Urinal Urinal Weight 63.6 kg 66.1 kg Physical Exam: Revealed 26-year-old white male in no distress Head: Atraumatic normocephalic. HEENT:[Neck is supple.] [No neck masses.] [No thyromegaly.] [No JVD.] Chest: [Clear throughout, no crackles, no rhonchi, no wheezes.] Cardiac Exam: [Normal S1 and S2, no S3 gallop, no murmur.] Abdomen: [Soft, nontender, no megaly, no rebound, no guarding, normal bowel sounds.] Extremities: [No clubbing, no edema, no cyanosis.] Neurological Exam: [No focal neurologic deficit.] Alert and oriented 3. Psychiatric: Normal mood affect and normal mental status examination. Skin: No rashes. [place] skeletal: No deformities and no limitation in range of motion Results - Laboratory Findings CBC and BMP: 04/24/22 11:25 04/25/22 05:34 Abnormal lab findings: Abnormal Labs 04/24/22 04/24/22 04/24/22 11:25 11:25 11:25 WBC 17.8 H Neutrophils # 15.4 H VBG pH VBG pCO2 VBG HCO3 Sodium 134 L Potassium 5.8 H Chloride 97 L Carbon Dioxide 6 L* BUN Creatinine Glucose 601 H* POC Glucose (mg/dL) Plasma Lactic Acid Len Phosphorus AST Albumin 5.4 H Urine Glucose (UA) 4+ H Urine Ketones 4+ H 04/24/22 04/24/22 04/24/22 11:25 11:25 15:18 WBC Neutrophils # VBG pH 7.16 L* VBG pCO2 22 L VBG HCO3 8 L* Sodium Potassium Chloride Carbon Dioxide BUN Creatinine Glucose POC Glucose (mg/dL) 527 H Plasma Lactic Acid Len 3.1 H* Phosphorus AST Albumin Urine Glucose (UA) Urine Ketones 04/24/22 04/24/22 04/24/22 16:04 16:26 16:26 WBC Neutrophils # VBG pH VBG pCO2 VBG HCO3 Sodium Potassium 5.6 H Chloride 108 H Carbon Dioxide 7 L* BUN 21 H Creatinine Glucose 340 H POC Glucose (mg/dL) 360 H Plasma Lactic Acid Len Phosphorus 4.9 H AST Albumin Urine Glucose (UA) Urine Ketones 04/24/22 04/24/22 04/24/22 17:04 17:54 18:14 WBC Neutrophils # VBG pH VBG pCO2 VBG HCO3 Sodium Potassium Chloride Carbon Dioxide BUN Creatinine Glucose POC Glucose (mg/dL) 230 H 213 H 205 H Plasma Lactic Acid Len Phosphorus AST Albumin Urine Glucose (UA) Urine Ketones 04/24/22 04/24/22 04/24/22 19:02 20:12 20:42 WBC Neutrophils # VBG pH VBG pCO2 VBG HCO3 Sodium Potassium Chloride Carbon Dioxide BUN Creatinine Glucose POC Glucose (mg/dL) 165 H 150 H Plasma Lactic Acid Len Phosphorus 2.2 L AST Albumin Urine Glucose (UA) Urine Ketones 04/24/22 04/24/22 04/24/22 20:42 21:03 22:02 WBC Neutrophils # VBG pH VBG pCO2 VBG HCO3 Sodium Potassium Chloride 109 H Carbon Dioxide 15 L BUN Creatinine Glucose 152 H POC Glucose (mg/dL) 135 H 127 H Plasma Lactic Acid Len Phosphorus AST Albumin Urine Glucose (UA) Urine Ketones 04/24/22 04/24/22 04/25/22 23:13 23:53 00:18 WBC Neutrophils # VBG pH VBG pCO2 VBG HCO3 Sodium 135 L Potassium 5.2 H Chloride Carbon Dioxide 11 L BUN Creatinine Glucose 230 H POC Glucose (mg/dL) 194 H 216 H Plasma Lactic Acid Len Phosphorus AST 16 L Albumin Urine Glucose (UA) Urine Ketones 04/25/22 04/25/22 04/25/22 01:19 02:24 03:28 WBC Neutrophils # VBG pH VBG pCO2 VBG HCO3 Sodium Potassium Chloride Carbon Dioxide BUN Creatinine Glucose POC Glucose (mg/dL) 266 H 223 H 210 H Plasma Lactic Acid Len Phosphorus AST Albumin Urine Glucose (UA) Urine Ketones 04/25/22 04/25/22 04/25/22 04:50 05:34 05:36 WBC Neutrophils # VBG pH VBG pCO2 VBG HCO3 Sodium 133 L Potassium Chloride Carbon Dioxide 16 L BUN Creatinine 0.65 L Glucose 181 H POC Glucose (mg/dL) 163 H 177 H Plasma Lactic Acid Len Phosphorus 2.3 L AST 15 L Albumin Urine Glucose (UA) Urine Ketones 04/25/22 04/25/22 04/25/22 06:26 07:25 08:10 WBC Neutrophils # VBG pH VBG pCO2 VBG HCO3 Sodium Potassium Chloride Carbon Dioxide BUN Creatinine Glucose POC Glucose (mg/dL) 184 H 182 H 183 H Plasma Lactic Acid Len Phosphorus AST Albumin Urine Glucose (UA) Urine Ketones 04/25/22 04/25/22 04/25/22 08:56 09:58 11:06 WBC Neutrophils # VBG pH VBG pCO2 VBG HCO3 Sodium Potassium Chloride Carbon Dioxide BUN Creatinine Glucose POC Glucose (mg/dL) 199 H 191 H 191 H Plasma Lactic Acid Len Phosphorus AST Albumin Urine Glucose (UA) Urine Ketones Assessment and Plan Assessment: #1. Acute diabetic ketoacidosis #2. Acute kidney injury related to severe dehydration #3. Anion gap metabolic acidosis related to DKA and lactic acidosis #4. Type 1 diabetes mellitus, with diabetic neuropathy #5. Multiple admissions for diabetic ketoacidosis #6. Previous history of drug overdose and suicidal attempts #7. History of major depression and generalized anxiety #8. Medical noncompliance #9. Chronic insomnia #10. History of mild intermittent bronchial asthma, inactive #11. History of marijuana use Recommendation: Continue present treatment plan Discontinue IV insulin drip, and switch to Levemir insulin and NovoLog insulin subcu. Continue GI and DVT prophylaxis ADA diet Change IV fluid to 0.9 normal saline at 1 25 mL an hour Switch to Accu-Cheks as per scale Transfer out of the ICU later today to a regular medical floor. And will follow as needed Time with Patient: Greater than 30
[2022-04-25] MEDS ORDERED: INSULIN DETEMIR (LEVEMIR) 100 UNIT/ML SYR SQ SCH (12:30)
[2022-04-25] MEDS: INSULIN ASPART (NovoLOG) 100 UNIT/ML VIAL SQ SCH ×4 (12:49→16:17)
--- NOTE | 2022-04-25 14:35 | P.CN ---
Psychiatric Consult - . Consult date: 04/25/22 Consult:: 04/25/22 13:43 IDENTIFYING DATA: Patient is a single, unemployed, 26-year-old male with significant history of diabetes mellitus type 1, depression, and borderline personality disorder, lives with roommates in a house. Unemployed. HPI: Patient presented to the hospital yesterday and was admitted medically for DKA. Patient has a long-standing history of depression, borderline personality disorder and uncontrolled diabetes mellitus. He has had numerous admissions to the medical floors and also the mental health unit mainly for uncontrolled diabetes and DKA. Patient was attempted to be seen by mortgage underwriter yesterday however still lethargic and ill to speak. Patient's blood sugars appear to be improving since yesterday. Patient was seen at the bedside after speaking with patient's nurse. She states that patient has been somewhat guarded today however has been eating and blood sugars have been improving. Patient continues to appear to be mildly lethargic and disinterested. He states that "I don't know what happened I don't know how it got so bad". He was minimizing his need for help and also his amount of hospitalizations. He claims that "I don't think there is anything I can do". He claims that he is feeling frustrated with diabetes not being able to manage it at home. He appears to have very poor insight and judgment and poor decision making skills. He believes that he does not have control and sta oni that he is taking his medications. This time he is denying any depression denying any anxiety. He claims that he is sleeping quite a bit. He claims that he is not able to hold down a job due to "getting sick". He is denying any suicidal or homicidal ideations intent or plan to denying any auditory or visual hallucinations. Aims that he he missed "one insulin shot" and states that his blood glucose was elevated. He did not feel like speaking more mortgage underwriter. Patient claims that he does not want antidepressants at this time. PAST PSYCHIATRIC HISTORY: The patient has had multiple psychiatric hospitalizations. He is nonadherent with any prescribed medications and does not follow up with any psychiatrist or therapist on a regular basis. Patient has been tried on several different anti depressants in the past however has been nonadherent and has been not helpful to him. Patient has had several suicide attempts in the past. PMH: Past Medical History: Asthma, Diabetes Mellitus, Neurologic Disorder, Skin Disorder Additional Past Medical History / Comment(s): IDDM type I, neuropathy bilateral feet, DKA, eczema. History of Any Multi-Drug Resistant Organisms: None Reported Past Surgical History: Adenoidectomy Additional Past Surgical History / Comment(s): 2002 Past Anesthesia/Blood Transfusion Reactions: No Reported Reaction Past Psychological History: Anxiety, Depression Smoking Status: Never smoker, Vaper Past Alcohol Use History: Occasional Past Drug Use History: Marijuana ALLERGIES: NO KNOWN DRUG ALLERGIES CHEMICAL DEPENDENCY HISTORY: The patient reports binge alcohol use episodes in the past. He does admit to marijuana use, up to a quarter ounce per day. He has a history of Xanax abuse however denies any Xanax use over the past few weeks. FAMILY PSYCHIATRIC/SUBSTANCE USE HISTORY: Denies SOCIAL HISTORY: Patient was born and raised in [place]. He dropped out in the 11th grade. He lives with his boss at his home. He is currently unemployed MENTAL STATUS EXAM: General Appearance: Patient appears to be tall, thin, lethargic, stated age. Patient appears to have a slightly disheveled hygiene and grooming. Behavior: Patient is seated without any agitated behavior. Laying down in bed without any agitated behavior. Eye contact is intermittent. Speech: Patient's speech is fluent and nonpressured. Monotone. concrete Mood/Affect: Patient reports their mood is frustrated, affect is incongruent and appears to be somewhat restricted Suicidality/Homicidality: Patient denies suicidal ideation denies any homicidal ideation. Perceptions: Patient denies any visual hallucinations and denies any auditory hallucinations Though content/process: There is no evidence of any delusional thought content and thought process is linear and goal-directed. [place]. minimizing and poor judgment Memory and concentration: AOX3, grossly intact for the purposes of this session. Can spell "WORLD" backwards Judgment and insight: Chronically poor and impulsive IMPRESSIONS: Nonadherence to medications DKA Borderline personality disorder History of depression Cannabis use disorder PLAN: -At this time patient DOES NOT meet criteria for inpatient psychiatric admi ssion. -Patient has poor judgment and insight and is a chronic risk to self-harm due to his personality disorder impulsiveness, poor judgment/insight and substance abuse. Patient is also nonadherent to medications including antidepressants and diabetic medications. Patient DOES NOT have decision making capacity at this time and is unable to reason through and communicate/appreciate the risks, benefits and alternatives to treatment. Would recommend seeking public gaurdianship. -Would recommend the following medication changes/additions: Structural Designer spoke with patient about different medication options however patient states that he is not interested at this time and did not want to get started on any medications at this time including antidepressants. It is recommended and mortgage underwriter informed patient that he needs to follow-up with [facility] and go into DBT therapy which I believe will be most suitable for him. -duralumin metalworker to provide patient with outpatient mental health/psychiatry resources for appropriate follow up upon discharge -Structural Designer spoke with patient about substance abuse and the harmful effects on medical and mental health, patient verbally understood and agreed. -Psychiatry will sign off at this time -Please contact with any questions. 04/25/22 14:28
[2022-04-25] MEDS: SODIUM CHLORIDE 0.9% 1,000 ML IV SCH (16:08)
[2022-04-25 16:15] LABS: Glucose,Whole Blood 105 mg/dL (70-110)
[2022-04-25 16:40] VITALS: BP 128/91; PULSE 94; TEMP 98.4
--- NOTE | 2022-04-26 01:43 | HP ---
HISTORY AND PHYSICAL CHIEF COMPLAINT: DKA. HISTORY OF PRESENT ILLNESS: This is another admission once again for this 26-year-old white male, type 1 diabetic. He just went home and then came back in again in DKA. His gap is over 20, and bicarb is low. He is very lethargic. REVIEW OF SYSTEMS: Cannot be obtained. Past medical history, family history, personal and social histories are all otherwise unremarkable and unchanged. As soon as he leaves the hospital, he usually starts drinking alcohol and stops taking his medication. PHYSICAL EXAMINATION: VITAL SIGNS: Pulse is 125. GENERAL: He is lethargic. NECK: Supple. HEENT: Pupils equal and round. CHEST: Clear. CARDIAC: Demonstrates sinus tachycardia. ABDOMEN: Flat, soft. EXTREMITIES: Normal. IMPRESSION: 1. Diabetic ketoacidosis. 2. Chronic alcoholism. 3. Major depression. PLAN: 1. Admit to ICU with DKA protocol. 2. We will obtain another psychiatric consult. MMBIANCA / TRAMN: [id number] /
--- NOTE | 2022-04-26 09:06 | PN ---
PROGRESS NOTE CHIEF COMPLAINT: Ketoacidosis. HISTORY OF PRESENT ILLNESS: This gentleman is still extremely lethargic. He is still acidotic. Gap is still over 20 and his bicarb is still quite low. PHYSICAL EXAM: CARDIAC: Sinus tachycardia. CHEST: Clear. IMPRESSION: 1. Diabetic ketoacidosis. 2. Alcoholism. 3. Type 1 uncontrolled insulin-dependent diabetes mellitus. 4. Depression. PLAN: Continue with current program. He has been seen by Psychiatry, but this has not helped him in the past. MMODL / IJN: [id number] /
== END 2022-04-25 17:53 | disposition left against medical advice (07) | DRG 638 ==
LOC: EC 10:56 → 3SCARD 13:34 → 2SICU 14:37 → 4SSUR 04-25 17:50
PROVIDERS: ADMIT Family Medicine; ATTEND Family Medicine
DX: E10.10 Type 1 diabetes mellitus with ketoacidosis without coma (principal); N17.9 Acute kidney failure, unspecified; Z53.29 Procedure and treatment not carried out because of patient's decision for other reasons; E10.42 Type 1 diabetes mellitus with diabetic polyneuropathy; E86.0 Dehydration; F60.9 Personality disorder, unspecified; R00.0 Tachycardia, unspecified; R19.7 Diarrhea, unspecified; E87.5 Hyperkalemia; F17.290 Nicotine dependence, other tobacco product, uncomplicated; F32.9 Major depressive disorder, single episode, unspecified; F41.1 Generalized anxiety disorder; F51.04 Psychophysiologic insomnia; F10.20 Alcohol dependence, uncomplicated; J45.909 Unspecified asthma, uncomplicated; Z79.4 Long term (current) use of insulin; Z79.899 Other long term (current) drug therapy; Z91.199 Patient's noncompliance with other medical treatment and regimen due to unspecified reason
CPT/HCPCS: 36415; 80051; 80053; 81003; 82009; 82150; 82565; 82803; 82947; 83605; 83690; 83735; 84100; 84520; 85025; 93005; 96361; 96374; 99291

== ENCOUNTER 2022-05-18 16:12 | Emergency (ER) | payer OTHER ==
[2022-05-18 16:19] VITALS: TEMP 97.4
--- NOTE | 2022-05-18 17:51 | ED ---
General Adult HPI - General Chief complaint: Nausea/Vomiting/Diarrhea Stated complaint: Stomach issues Time Seen by Provider: 05/18/22 17:51 Source: patient Mode of arrival: ambulatory Limitations: no limitations - History of Present Illness Initial comments: Patient presents to the ED complaining of having epigastric abdominal pain, nausea and vomiting for the past 2 hours or so. Patient is a type I diabetic, and he states that he has a history of gastroparesis. Patient states that he has had similar symptoms multiple times in the past. Patient states that he has been taking his insulin regularly as prescribed. Patient denies alcohol or illicit drug use. Patient denies trauma or injury, fever or chills, headache, focal neuro deficit, chest pain or pressure, dyspnea, cough or cold symptoms, palpitations, dizziness, back or flank pain, diarrhea or constipation, bloody or melanotic stool, hematemesis, dysuria or urinary symptoms, decreased urine output, or any other symptoms or complaints. - Related Data Home Medications Medication Instructions Recorded Confirmed INSULIN ASPART (NovoLOG) [NovoLOG 10 unit SQ AC-TID 06/29/21 04/24/22 (formulary)] Gabapentin 600 mg PO TID 12/19/21 04/24/22 Insulin Detemir (Levemir) [Levemir] 25 unit SQ DAILY 04/11/22 04/24/22 Previous Rx's Medication Instructions Recorded Ondansetron Odt [Zofran Odt] 4 mg PO Q8HR PRN #10 tab 04/17/22 Allergies Allergy/AdvReac Type Severity Reaction Status Date / Time No Known Allergies Allergy Verified 05/18/22 16:18 Review of Systems ROS Statement: Those systems with pertinent positive or pertinent negative responses have been documented in the HPI. ROS Other: All systems not noted in ROS Statement are negative. Past Medical History Past Medical History: Asthma, Diabetes Mellitus, Neurologic Disorder, Skin Disorder Additional Past Medical History / Comment(s): IDDM type I, neuropathy bilateral feet, DKA, eczema. History of Any Multi-Drug Resistant Organisms: None Reported Past Surgical History: Adenoidectomy Additional Past Surgical History / Comment(s): 2002 Past Anesthesia/Blood Transfusion Reactions: No Reported Reaction Past Psychological History: Anxiety, Depression Smoking Status: Vaper Past Alcohol Use History: None Reported Past Drug Use History: None Reported - Past Family History Mother Family Medical History: CVA/TIA Additional Family Medical History / Comment(s): TIA Father Family Medical History: Hyperlipidemia, Hypertension Additional Family Medical History / Comment(s): . General Exam Limitations: no limitations General appearance: alert, in no apparent distress Head exam: Present: atraumatic, normocephalic Eye exam: Present: normal appearance, EOMI ENT exam: Present: mucous membranes moist Neck exam: Present: other (Trachea is in midline) Respiratory exam: Present: normal lung sounds bilaterally. Absent: respiratory distress, wheezes, rales, rhonchi, stridor Cardiovascular Exam: Present: regular rate, normal rhythm, normal heart sounds, other (Normal radial pulses bilaterally) GI/Abdominal exam: Present: soft, hypoactive bowel sounds, other (Mild epigastric abdominal tenderness). Absent: distended, guarding, rebound Extremities exam: Absent: pedal edema Back exam: Absent: CVA tenderness (R), CVA tenderness (L) Neurological exam: Present: alert, oriented X3. Absent: motor sensory deficit Psychiatric exam: Present: normal affect, normal mood Skin exam: Present: warm, dry, intact, normal color Course Vital Signs 05/18/22 05/18/22 05/18/22 16:17 18:28 19:38 Temperature 97.4 F L Pulse Rate 92 92 90 Respiratory 16 18 16 Rate Blood Pressure 119/87 143/103 118/87 O2 Sat by Pulse 98 98 97 Oximetry - Reevaluation(s) Reevaluation #1: 05/18/22 19:56 Patient states that his symptoms have improved with ED treatment. Patient continues to have a benign/nonsurgical abdominal exam. Patient remains alert and breathing comfortably. Patient is aware of his test results, and he feels comfortable being discharged home at this time. Patient was counseled about abdominal pain, nausea vomiting and hyperglycemia. Patient was clearly explained return and follow-up instructions, and he was instructed to follow up closely with his primary care provider. Patient feels comfortable with this plan. Medical Decision Making - Medical Decision Making Other than hyperglycemia, the patient's labs are fairly unremarkable. Patient was treated with IV fluids, IV analgesics and IV antiemetic medications in the ED. Patient's blood glucose has improved while in the ED. Patient is not ketotic or acidotic. Patient has a benign/nonsurgical abdominal exam. Patient is afebrile and without leukocytosis. Patient has presented to the ED numerous times with similar symptoms in the past. I do not suspect an emergent medical or surgical condition at this time. Will discharge patient home at this time. Patient feels comfortable with this plan. - Lab Data Result diagrams: 05/18/22 18:07 05/18/22 18:07 Lab Results 05/18/22 05/18/22 05/18/22 Range/Units 18:07 18:07 19:42 WBC 7.6 (3.8-10.6) k/uL RBC 4.46 (4.30-5.90) m/uL Hgb 14.0 (13.0-17.5) gm/dL Hct 41.9 (39.0-53.0) % MCV 94.1 (80.0-100.0) fL MCH 31.3 (25.0-35.0) pg MCHC 33.3 (31.0-37.0) g/dL RDW 12.4 (11.5-15.5) % Plt Count 301 (150-450) k/uL MPV 7.6 Neutrophils % 63 % Lymphocytes % 29 % Monocytes % 4 % Eosinophils % 2 % Basophils % 1 % Neutrophils # 4.8 (1.3-7.7) k/uL Lymphocytes # 2.2 (1.0-4.8) k/uL Monocytes # 0.3 (0-1.0) k/uL Eosinophils # 0.2 (0-0.7) k/uL Basophils # 0.1 (0-0.2) k/uL Sodium 140 (137-145) mmol/L Potassium 4.6 (3.5-5.1) mmol/L Chloride 104 (98-107) mmol/L Carbon Dioxide 29 (22-30) mmol/L Anion Gap 7 mmol/L BUN 20 (9-20) mg/dL Creatinine 0.69 (0.66-1.25) mg/dL Est GFR (CKD-EPI)AfAm >90 (>60 ml/min/1.73 sqM) Est GFR (CKD-EPI)NonAf >90 (>60 ml/min/1.73 sqM) Glucose 365 H (74-99) mg/dL POC Glucose (mg/dL) 328 H (70-110) mg/dL POC Glu Rock Lather ID Marcus Coles Calcium 9.1 (8.4-10.2) mg/dL Magnesium 2.2 (1.6-2.3) mg/dL Total Bilirubin 0.5 (0.2-1.3) mg/dL AST 18 (17-59) U/L ALT 15 (4-49) U/L Alkaline Phosphatase 64 (38-126) U/L Total Protein 7.1 (6.3-8.2) g/dL Albumin 4.6 (3.5-5.0) g/dL Lipase 150 (23-300) U/L Serum Alcohol <10 mg/dL Acetone, Qual Negative (Negative) Disposition Clinical Impression: Abdominal pain, Nausea and vomiting, Hyperglycemia Disposition: HOME SELF-CARE Condition: Stable Instructions (If sedation given, give patient instructions): Acute Nausea and Vomiting (ED), Abdominal Pain (ED), Diabetic Hyperglycemia (ED) Additional Instructions: Return to the ER immediately should you develop new or worsening pain, persistent vomiting, a fever, feeling dizzy or faint, or new or worsening symptoms. Follow up closely with your primary care provider. Is patient prescribed a controlled substance at d/c from ED?: No Referrals: Brown Valenzuela MD [Primary Care Provider] - 1-2 days Time of Disposition: 20:04
[2022-05-18] MEDS ORDERED: diphenhydrAMINE 50 MG/ML 1 ML VIAL IVP STA (18:05)
[2022-05-18] MEDS ORDERED: SODIUM CHLORIDE 0.9% 1,000 ML IV STA (18:05)
[2022-05-18] MEDS ORDERED: HYDROmorphone 0.5 MG/0.5 ML SYRINGE IVP STA (18:05)
[2022-05-18] MEDS ORDERED: METOCLOPRAMIDE 5 MG/ML 2 ML VIAL IVP STA (18:05)
[2022-05-18 18:19] LABS: Basophils # (A) 0.1 k/uL (0-0.2); Basophils % (A) 1 %; Eosinophils # (A) 0.2 k/uL (0-0.7); Eosinophils % (A) 2 %; HCT 41.9 % (39.0-53.0); Lymphocytes # (A) 2.2 k/uL (1.0-4.8); Lymphocytes % (A) 29 %; MCH 31.3 pg (25.0-35.0); MCHC 33.3 g/dL (31.0-37.0); MCV 94.1 fL (80.0-100.0); Mean Platelet Volume 7.6; Monocytes # (A) 0.3 k/uL (0-1.0); Monocytes % (A) 4 %; Neutrophils # (A) 4.8 k/uL (1.3-7.7); Neutrophils % (A) 63 %; Platelet Count 301 k/uL (150-450); RBC 4.46 m/uL (4.30-5.90); RDW 12.4 % (11.5-15.5); WBC 7.6 k/uL (3.8-10.6)
[2022-05-18 18:33] LABS: ALT 15 U/L (4-49); AST 18 U/L (17-59); African American GFR (CKD) >90 (>60 ml/min/1.73 sqM); Albumin 4.6 g/dL (3.5-5.0); Alcohol <10 mg/dL; Alkaline Phosphatase 64 U/L (38-126); Anion Gap 7 mmol/L; Blood Urea Nitrogen 20 mg/dL (9-20); Calcium 9.1 mg/dL (8.4-10.2); Carbon Dioxide 29 mmol/L (22-30); Chloride 104 mmol/L (98-107); Glucose 365 mg/dL (74-99); Lipase 150 U/L (23-300); Magnesium 2.2 mg/dL (1.6-2.3); Non-African American GFR(CKD) >90 (>60 ml/min/1.73 sqM); Potassium 4.6 mmol/L (3.5-5.1); Sodium 140 mmol/L (137-145); Total Bilirubin 0.5 mg/dL (0.2-1.3); Total Protein 7.1 g/dL (6.3-8.2)
[2022-05-18] MEDS ORDERED: SODIUM CHLORIDE 0.9% 500 ML 500 ML IV ONE (18:52)
[2022-05-18 19:44] LABS: Glucose,Whole Blood 328 mg/dL (70-110)
[2022-05-18] MEDS ORDERED: ONDANSETRON 4 MG ODT STARTER PACK 2 TAB BTL PO STA (19:59)
[2022-05-18 21:02] VITALS: BP 130/69; PULSE 69; RESP 20
--- NOTE | 2022-05-20 21:31 | HP ---
HISTORY AND PHYSICAL CHIEF COMPLAINT: DKA. HISTORY OF PRESENT ILLNESS: This gentleman once again is back in the hospital in [facility]. He had actually been in the hospital the day before and was released from the emergency room, went home, and came back again with elevated blood sugar and DKA. He continues to exhibit self-destructive irresponsible behavior. He does not take insulin and drinks alcohol more and more heavily of late. REVIEW OF SYSTEMS: He was complaining of crampy abdominal pain and some nausea, but had no other complaints. Past medical history, family history and personal and social histories were otherwise unchanged from his recent admitting and discharge summaries about a week ago. PHYSICAL EXAMINATION: VITAL SIGNS: Blood pressure 115/71 with a pulse of 94, respirations of 36. He is afebrile. GENERAL: He appeared to be slender and dehydrated. HEAD, EARS, EYES, NOSE, MOUTH, AND THROAT: Normal except for dehydration. NECK: Neck veins were not distended. CHEST: Clear. CARDIAC: Normal. ABDOMEN: Soft and nontender. EXTREMITIES: Normal. NEUROLOGIC: He is intact. IMPRESSION: 1. Diabetic ketoacidosis. 2. Type 1 insulin-dependent diabetes mellitus. 3. Depression. 4. Alcoholism. PLAN: 1. Bedrest. 2. IV fluids. 3. DKA protocol. MMODL / IJN: [id number] /
== END 2022-05-18 21:07 | disposition home or self-care (01) ==
LOC: EC 16:12
DX: R10.13 Epigastric pain (principal); R11.2 Nausea with vomiting, unspecified; E11.65 Type 2 diabetes mellitus with hyperglycemia; J45.909 Unspecified asthma, uncomplicated; F41.9 Anxiety disorder, unspecified; F32.A Depression, unspecified; F17.290 Nicotine dependence, other tobacco product, uncomplicated; Z79.4 Long term (current) use of insulin
CPT/HCPCS: 80053; 82009; 83690; 83735; 85025; 99284; 96374; 96375 ×2; 96361 ×3; G0480; J1200; J2765; S0119; J1170; 36415; 80320

== ENCOUNTER 2022-05-19 09:48 | Emergency (ER) | payer OTHER ==
[2022-05-19 09:55] VITALS: RESP 18; TEMP 97.6
[2022-05-19 09:58] LABS: Glucose,Whole Blood 329 mg/dL (70-110)
[2022-05-19] MEDS ORDERED: ONDANSETRON 4 MG/2 ML VIAL IVP STA (10:42)
[2022-05-19] MEDS ORDERED: SODIUM CHLORIDE 0.9% 500 ML 500 ML IV STA (10:42)
[2022-05-19] MEDS ORDERED: SODIUM CHLORIDE 0.9% 1,000 ML IV STA (10:42)
[2022-05-19 10:53] LABS: Basophils % (A) 0 %; Eosinophils % (A) 0 %; HCT 40.6 % (39.0-53.0); HGB 13.5 gm/dL (13.0-17.5); Lymphocytes # (A) 1.1 k/uL (1.0-4.8); Lymphocytes % (A) 14 %; MCH 31.3 pg (25.0-35.0); MCHC 33.2 g/dL (31.0-37.0); MCV 94.3 fL (80.0-100.0); Mean Platelet Volume 7.6; Monocytes # (A) 0.3 k/uL (0-1.0); Monocytes % (A) 4 %; Neutrophils # (A) 6.7 k/uL (1.3-7.7); Neutrophils % (A) 81 %; Platelet Count 292 k/uL (150-450); RDW 12.3 % (11.5-15.5); WBC 8.2 k/uL (3.8-10.6)
--- NOTE | 2022-05-19 10:57 | ED ---
General Adult HPI - General Chief complaint: Nausea/Vomiting/Diarrhea Stated complaint: nausea/vomiting Time Seen by Provider: 05/19/22 09:55 Source: patient, EMS, RN notes reviewed, old records reviewed Mode of arrival: EMS Limitations: no limitations - History of Present Illness Initial comments: This is a 26-year-old male who presents emergency Department with a past medical history significant for diabetes. Patient states she does take Selsun. Patient states yesterday started vomiting and he continues to vomit all day today. Patient denies any abdominal pain patient denies chest pain or palpitations. Patient denies any fever chills or cough per patient denies diarrhea. Patient denies headache patient denies numbness weakness. - Related Data Home Medications Medication Instructions Recorded Confirmed INSULIN ASPART (NovoLOG) [NovoLOG 10 unit SQ AC-TID 06/29/21 04/24/22 (formulary)] Gabapentin 600 mg PO TID 12/19/21 04/24/22 Insulin Detemir (Levemir) [Levemir] 25 unit SQ DAILY 04/11/22 04/24/22 Previous Rx's Medication Instructions Recorded Ondansetron Odt [Zofran Odt] 4 mg PO Q8HR PRN #10 tab 04/17/22 Allergies Allergy/AdvReac Type Severity Reaction Status Date / Time No Known Allergies Allergy Verified 05/18/22 16:18 Review of Systems ROS Statement: Those systems with pertinent positive or pertinent negative responses have been documented in the HPI. ROS Other: All systems not noted in ROS Statement are negative. Past Medical History Past Medical History: Asthma, Diabetes Mellitus, Neurologic Disorder, Skin Disorder Additional Past Medical History / Comment(s): IDDM type I, neuropathy bilateral feet, DKA, eczema. History of Any Multi-Drug Resistant Organisms: None Reported Past Surgical History: Adenoidectomy Additional Past Surgical History / Comment(s): 2002 Past Anesthesia/Blood Transfusion Reactions: No Reported Reaction Past Psychological History: Anxiety, Depression Smoking Status: Vaper Past Alcohol Use History: None Reported Past Drug Use History: None Reported - Past Family History Mother Family Medical History: CVA/TIA Additional Family Medical History / Comment(s): TIA Father Family Medical History: Hyperlipidemia, Hypertension Additional Family Medical History / Comment(s): . General Exam - General Exam Comments Initial Comments: GENERAL: Patient is well-developed and well-nourished. Patient is nontoxic and well- hydrated and is in mild distress. Patient is very uncooperative after asking multiple times to answer any questions and is very irritated with being asked questions. ENT: Neck is soft and supple. No significant lymphadenopathy is noted. Oropharynx is clear. Moist mucous membranes. Neck has full range of motion without eliciting any pain. EYES: The sclera were anicteric and conjunctiva were pink and moist. Extraocular movements were intact and pupils were equal round and reactive to light. Eyelids were unremarkable. PULMONARY: Unlabored respirations. Good breath sounds bilaterally. No audible rales rhonc hi or wheezing was noted. CARDIOVASCULAR: There is a regular rate and rhythm without any murmurs gallops or rubs. ABDOMEN: Soft and nontender with normal bowel sounds. SKIN: Skin is clear with no lesions or rashes and otherwise unremarkable. NEUROLOGIC: Patient is alert and oriented x3. Cranial nerves II through XII are grossly intact. Motor and sensory are also intact. Normal speech, volume and content. Symmetrical smile. MUSCULOSKELETAL: Normal extremities with adequate strength and full range of motion LYMPHATICS: No significant lymphadenopathy is noted PSYCHIATRIC: Normal psychiatric evaluation. Limitations: no limitations Course Vital Signs 05/19/22 09:51 Temperature 97.6 F Pulse Rate 112 H Respiratory 18 Rate Blood Pressure 104/73 O2 Sat by Pulse 95 Oximetry Medical Decision Making - Medical Decision Making Was pt. sent in by a medical professional or institution? @ -None Did you speak to anyone other than the patient for history? @ -EMS Did you review nursing and triage notes? @ -Agree with nursing notes and triage note Were old charts reviewed? @ -No Differential Diagnosis? @ -Differential Abdominal Pain Men: Appendicitis, cholecystitis, diverticulosis, ischemic bowel, pancreatitis, hepatitis, UTI, gastroenteritis, AAA, incarcerated hernia, bowel obstruction, constipation, inflammatory bowel, hepatitis, peptic ulcer disease, splenic infarction, perforated viscus, testicular torsion, this is not meant to be an all-inclusive list EKG interpreted by me (3pts min.)? @ -None X-rays interpreted by me (1pt min.)? @ -None CT interpreted by me (1pt min.)? @ -None U/S interpreted by me (1pt. min.)? @ -[none] What testing was considered but not performed? (CT, X-rays, U/S, labs)? Why? @Possible CT of the abdomen and pelvis however I reexamination the patient's abdomen was nontender What meds were considered but not given? Why? @ -None Did you discuss the management of the patient with other professionals? @ -I spoke with Dr. Valenzuela and he agreed to admit the patient. Did you reconcile home meds? @ -No Was smoking cessation discussed for >3mins.? @ -None Was critical care preformed (if so, how long)? @ -This was critical care patient crackle care time was 35 minutes. Patient had to be started on an insulin drip because of the diabetic ketoacidosis. Patient also had to be hydrated with normal saline boluses. Were there social determinants of health that impacted care today? How? (Homelessness, low income, unemployed, alcoholism, drug addiction, transportation, low edu. Level, literacy, decrease access to med. care, senior living, rehab)? @ -None Was there de-escalation of care discussed even if they declined? (Discuss DNR or withdrawal of care, Hospice)? @ -None What co-morbidities impacted this encounter? (DM, HTN, Smoking, COPD, CAD, Cancer, CVA, Hep., AIDS, mental health diagnosis, sleep apnea, morbid obesity)? @ -None Was patient admitted / discharged? @ -Admitted Undiagnosed new problem with uncertain prognosis? @ -None Drug Therapy requiring intensive monitoring for toxicity (Heparin, Nitro, Insulin, Cardizem)? @ -Insulin drip Were any procedures done? @ -None Diagnosis/symptom? @ -Diabetic ketoacidosis Acute, or Chronic, or Acute on Chronic? @ -Acute on chronic Uncomplicated (without systemic symptoms) or Complicated (systemic symptoms)? @ -Complicated Side effects of treatment? @ -[none] Exacerbation, Progression, or Severe Exacerbation] @ -Severe exacerbation Poses a threat to life or bodily function? @ -Yes patient is in diabetic ketoacidosis which can lead to severe dehydration morbidity and - Lab Data Result diagrams: 05/19/22 10:45 05/19/22 10:45 Lab Results 05/19/22 05/19/22 05/19/22 Range/Units 09:57 10:45 10:45 WBC 8.2 (3.8-10.6) k/uL RBC 4.30 (4.30-5.90) m/uL Hgb 13.5 (13.0-17.5) gm/dL Hct 40.6 (39.0-53.0) % MCV 94.3 (80.0-100.0) fL MCH 31.3 (25.0-35.0) pg MCHC 33.2 (31.0-37.0) g/dL RDW 12.3 (11.5-15.5) % Plt Count 292 (150-450) k/uL MPV 7.6 Neutrophils % 81 % Lymphocytes % 14 % Monocytes % 4 % Eosinophils % 0 % Basophils % 0 % Neutrophils # 6.7 (1.3-7.7) k/uL Lymphocytes # 1.1 (1.0-4.8) k/uL Monocytes # 0.3 (0-1.0) k/uL Eosinophils # 0.0 (0-0.7) k/uL Basophils # 0.0 (0-0.2) k/uL Sodium 139 (137-145) mmol/L Potassium 4.2 (3.5-5.1) mmol/L Chloride 104 (98-107) mmol/L Carbon Dioxide 18 L (22-30) mmol/L Anion Gap 17 mmol/L BUN 20 (9-20) mg/dL Creatinine 0.66 (0.66-1.25) mg/dL Est GFR (CKD-EPI)AfAm >90 (>60 ml/min/1.73 sqM) Est GFR (CKD-EPI)NonAf >90 (>60 ml/min/1.73 sqM) Glucose 345 H (74-99) mg/dL POC Glucose (mg/dL) 329 H (70-110) mg/dL POC Glu Tax Appraiser ID Selena Fofana Calcium 8.7 (8.4-10.2) mg/dL Total Bilirubin 1.1 (0.2-1.3) mg/dL AST 16 L (17-59) U/L ALT 15 (4-49) U/L Alkaline Phosphatase 64 (38-126) U/L Total Protein 6.5 (6.3-8.2) g/dL Albumin 4.4 (3.5-5.0) g/dL Amylase 57 (30-110) U/L Lipase 35 (23-300) U/L Acetone, Qual Positive (Negative) 05/19/22 Range/Units 11:45 WBC (3.8-10.6) k/uL RBC (4.30-5.90) m/uL Hgb (13.0-17.5) gm/dL Hct (39.0-53.0) % MCV (80.0-100.0) fL MCH (25.0-35.0) pg MCHC (31.0-37.0) g/dL RDW (11.5-15.5) % Plt Count (150-450) k/uL MPV Neutrophils % % Lymphocytes % % Monocytes % % Eosinophils % % Basophils % % Neutrophils # (1.3-7.7) k/uL Lymphocytes # (1.0-4.8) k/uL Monocytes # (0-1.0) k/uL Eosinophils # (0-0.7) k/uL Basophils # (0-0.2) k/uL Sodium (137-145) mmol/L Potassium (3.5-5.1) mmol/L Chloride (98-107) mmol/L Carbon Dioxide (22-30) mmol/L Anion Gap mmol/L BUN (9-20) mg/dL Creatinine (0.66-1.25) mg/dL Est GFR (CKD-EPI)AfAm (>60 ml/min/1.73 sqM) Est GFR (CKD-EPI)NonAf (>60 ml/min/1.73 sqM) Glucose (74-99) mg/dL POC Glucose (mg/dL) 289 H (70-110) mg/dL POC Glu Tax Appraiser ID Selena Fofana Calcium (8.4-10.2) mg/dL Total Bilirubin (0.2-1.3) mg/dL AST (17-59) U/L ALT (4-49) U/L Alkaline Phosphatase (38-126) U/L Total Protein (6.3-8.2) g/dL Albumin (3.5-5.0) g/dL Amylase (30-110) U/L Lipase (23-300) U/L Acetone, Qual (Negative) Critical Care Time Critical Care Time: Yes Total Critical Care Time: 35 Disposition Clinical Impression: DKA (diabetic ketoacidoses) Disposition: ADMITTED IP TO THIS HOSP Referrals: Brown Valenzuela MD [Primary Care Provider] - 1-2 days Time of Disposition: 14:37
[2022-05-19 11:03] LABS: ALT 15 U/L (4-49); AST 16 U/L (17-59); African American GFR (CKD) >90 (>60 ml/min/1.73 sqM); Albumin 4.4 g/dL (3.5-5.0); Alkaline Phosphatase 64 U/L (38-126); Amylase 57 U/L (30-110); Anion Gap 17 mmol/L; Blood Urea Nitrogen 20 mg/dL (9-20); Calcium 8.7 mg/dL (8.4-10.2); Carbon Dioxide 18 mmol/L (22-30); Chloride 104 mmol/L (98-107); Glucose 345 mg/dL (74-99); Lipase 35 U/L (23-300); Non-African American GFR(CKD) >90 (>60 ml/min/1.73 sqM); Potassium 4.2 mmol/L (3.5-5.1); Sodium 139 mmol/L (137-145); Total Bilirubin 1.1 mg/dL (0.2-1.3); Total Protein 6.5 g/dL (6.3-8.2)
[2022-05-19 11:48] LABS: Glucose,Whole Blood 289 mg/dL (70-110)
[2022-05-19] MEDS ORDERED: Potassium Replacement Protocol 1 EACH MISC MISCELLANE PRN (14:50)
[2022-05-19] MEDS ORDERED: Magnesium Replacement Protocol 1 EACH MISC MISCELLANE PRN (14:50)
[2022-05-19] MEDS ORDERED: INSULIN REGULAR 100 UNIT in SODIUM CHLORIDE 0.9% 100 ML IV SCH (15:30)
[2022-05-19 15:38] LABS: Glucose,Whole Blood 324 mg/dL (70-110)
[2022-05-19] MEDS: SODIUM CHLORIDE 0.9% 1,000 ML IV SCH ×2 (15:39→20:36)
[2022-05-19] MEDS ORDERED: NALOXONE 0.4 MG/ML 1 ML VIAL IV PRN (16:26)
[2022-05-19 16:34] LABS: Glucose,Whole Blood 290 mg/dL (70-110)
[2022-05-19 17:09] LABS: VBG PH 7.25 (7.31-7.41)
[2022-05-19 17:27] LABS: African American GFR (CKD) >90 (>60 ml/min/1.73 sqM); Anion Gap 18 mmol/L; Blood Urea Nitrogen 18 mg/dL (9-20); Carbon Dioxide 12 mmol/L (22-30); Chloride 105 mmol/L (98-107); Glucose 300 mg/dL (74-99); Non-African American GFR(CKD) >90 (>60 ml/min/1.73 sqM); Potassium 4.5 mmol/L (3.5-5.1); Sodium 135 mmol/L (137-145)
[2022-05-19 17:38] LABS: Glucose,Whole Blood 266 mg/dL (70-110)
[2022-05-19 18:40] LABS: Glucose,Whole Blood 199 mg/dL (70-110)
[2022-05-19 19:33] LABS: Glucose,Whole Blood 163 mg/dL (70-110)
[2022-05-19] MEDS ORDERED: D5-0.45% NACL WITH KCL 20MEQ/L 1,000 ML IV SCH (20:15)
[2022-05-19 20:32] LABS: Glucose,Whole Blood 141 mg/dL (70-110)
[2022-05-19 21:08] LABS: African American GFR (CKD) >90 (>60 ml/min/1.73 sqM); Anion Gap 7 mmol/L; Blood Urea Nitrogen 18 mg/dL (9-20); Carbon Dioxide 19 mmol/L (22-30); Chloride 106 mmol/L (98-107); Glucose 146 mg/dL (74-99); Non-African American GFR(CKD) >90 (>60 ml/min/1.73 sqM); Phosphorus 2.6 mg/dL (2.5-4.5); Potassium 4.1 mmol/L (3.5-5.1); Sodium 132 mmol/L (137-145)
[2022-05-19 21:29] LABS: Glucose,Whole Blood 114 mg/dL (70-110)
[2022-05-19] MEDS ORDERED: INSULIN NPH 100 UNIT/ML 10 ML VIAL SQ ONE ×3 (22:20→22:45)
[2022-05-19 22:26] LABS: Glucose,Whole Blood 111 mg/dL (70-110)
[2022-05-19] MEDS ORDERED: INSULIN DETEMIR (LEVEMIR) 100 UNIT/ML SYR SQ SCH (22:30)
[2022-05-19 23:40] LABS: Glucose,Whole Blood 221 mg/dL (70-110)
[2022-05-19 23:53] VITALS: BP 119/77; PULSE 80
[2022-05-20] MEDS ORDERED: INSULIN ASPART (NovoLOG) 100 UNIT/ML VIAL SQ SCH ×6 (02:00→07:30)
[2022-05-20] MEDS ORDERED: INSULIN DETEMIR (LEVEMIR) 100 UNIT/ML SYR SQ SCH ×2 (07:00→21:00)
--- NOTE | 2022-05-21 08:20 | DS ---
DISCHARGE SUMMARY CHIEF COMPLAINT: DKA. HISTORY OF PRESENT ILLNESS AND PHYSICAL EXAMINATION: Details of this man's history and physical can be found in the initial workup. LABORATORY STUDIES: Can be found in the laboratory section of his chart. COURSE IN THE HOSPITAL: After admission, he was admitted to the emergency room for DKA, but then signed himself out against medical advice once again. FINAL DIAGNOSES: 1. Diabetic ketoacidosis. 2. Type 1 insulin-dependent diabetes mellitus. 3. Noncompliant patient. 4. Depression. 5. Alcoholism. OPERATIONS: None. CONSULTATIONS: None. He signed out AMA. MMSHANEL / ALDEN: [id number] /
== END 2022-05-20 00:09 | disposition left against medical advice (07) ==
LOC: EC 09:48 → 3SCARD 16:26 → UNDOADMIN 16:26 → 3SCARD 16:43 → EC 05-20 00:09 → UNDODISIN 05-20 00:09
DX: E11.10 Type 2 diabetes mellitus with ketoacidosis without coma (principal); J45.909 Unspecified asthma, uncomplicated; E11.9 Type 2 diabetes mellitus without complications; F41.9 Anxiety disorder, unspecified; F32.A Depression, unspecified; F17.290 Nicotine dependence, other tobacco product, uncomplicated; Z79.4 Long term (current) use of insulin
CPT/HCPCS: 36415; 93005; 80051; 80053; 82150; 82565; 82803; 82009; 83690; 84100; 82947; 84520; 85025; 99285; 96365; 96366; 96375; 96361 ×9; J2405

== ENCOUNTER 2022-05-24 08:34 | Emergency (ER) | payer OTHER ==
[2022-05-24 08:37] VITALS: BP 98/66; PULSE 89; RESP 18; TEMP 98
[2022-05-24 08:40] LABS: Glucose,Whole Blood 200 mg/dL (70-110)
[2022-05-24] MEDS ORDERED: METOCLOPRAMIDE 5 MG/ML 2 ML VIAL IVP STA (08:43)
[2022-05-24] MEDS ORDERED: LORazepam 2 MG/ML INJ IV STA (08:43)
[2022-05-24] MEDS ORDERED: FAMOTIDINE 20 MG/2 ML VIAL IV STA (08:43)
[2022-05-24] MEDS ORDERED: SODIUM CHLORIDE 0.9% 2,000 ML IV STA (08:43)
--- NOTE | 2022-05-24 08:47 | ED ---
General Adult HPI - General Chief complaint: Nausea/Vomiting/Diarrhea Stated complaint: abd pain Time Seen by Provider: 05/24/22 08:34 Source: patient, EMS, RN notes reviewed Mode of arrival: EMS Limitations: no limitations - History of Present Illness Initial comments: Patient is a pleasant 26-year-old male presenting to the emergency department with nausea vomiting and abdominal pain. Patient states this is a chronic problem for him. Patient states he did take his insulin this morning. Patient was recently in the hospital with similar problem, Dr. Valenzuela's report reviewed. Patient states he is nauseated but only vomited once or twice. Cristal ent does have abdominal discomfort. Patient states he also has irritable bowel syndrome and chronic problems with his bowel movements intermittently. No fever. - Related Data Home Medications Medication Instructions Recorded Confirmed INSULIN ASPART (NovoLOG) [NovoLOG 10 unit SQ AC-TID 06/29/21 05/19/22 (formulary)] Gabapentin 600 mg PO TID 12/19/21 05/19/22 Insulin Detemir (Levemir) [Levemir] 25 unit SQ DAILY 04/11/22 05/19/22 Previous Rx's Medication Instructions Recorded Ondansetron Odt [Zofran Odt] 4 mg PO Q8HR PRN #10 tab 04/17/22 Allergies Allergy/AdvReac Type Severity Reaction Status Date / Time No Known Allergies Allergy Verified 05/18/22 16:18 Review of Systems ROS Statement: Those systems with pertinent positive or pertinent negative responses have been documented in the HPI. ROS Other: All systems not noted in ROS Statement are negative. Constitutional: Denies: fever Eyes: Denies: eye pain ENT: Denies: ear pain Respiratory: Denies: cough Cardiovascular: Denies: chest pain Endocrine: Denies: fatigue Gastrointestinal: Reports: as per HPI, abdominal pain, nausea, vomiting Genitourinary: Denies: dysuria Musculoskeletal: Denies: back pain Skin: Denies: rash Neurological: Denies: weakness Past Medical History Past Medical History: Asthma, Diabetes Mellitus, Neurologic Disorder, Skin Disorder Additional Past Medical History / Comment(s): IDDM type I, neuropathy bilateral feet, DKA, eczema. History of Any Multi-Drug Resistant Organisms: None Reported Past Surgical History: Adenoidectomy Additional Past Surgical History / Comment(s): 2002 Past Anesthesia/Blood Transfusion Reactions: No Reported Reaction Past Psychological History: Anxiety, Depression Smoking Status: Vaper Past Alcohol Use History: None Reported Past Drug Use History: None Reported - Past Family History Mother Family Medical History: CVA/TIA Additional Family Medical History / Comment(s): TIA Father Family Medical History: Hyperlipidemia, Hypertension Additional Family Medical History / Comment(s): . General Exam Limitations: no limitations General appearance: alert, in no apparent distress Head exam: Present: normocephalic Eye exam: Present: normal appearance Neck exam: Present: normal inspection Respiratory exam: Present: normal lung sounds bilaterally Cardiovascular Exam: Present: regular rate, normal rhythm GI/Abdominal exam: Present: soft, normal bowel sounds. Absent: distended, tenderness, guarding, rebound, rigid, pulsatile mass Extremities exam: Present: normal inspection Neurological exam: Present: alert Psychiatric exam: Present: normal affect, normal mood Skin exam: Present: normal color Course Vital Signs 05/24/22 08:35 Temperature 98.0 F Pulse Rate 89 Respiratory 18 Rate Blood Pressure 98/66 O2 Sat by Pulse 98 Oximetry Medical Decision Making - Medical Decision Making Patient reevaluated and resting comfortably in bed. Patient updated on results. Patient states he is feeling better. - Lab Data Result diagrams: 05/24/22 08:47 05/24/22 08:47 Lab Results 05/24/22 05/24/22 05/24/22 Range/Units 08:38 08:47 08:47 WBC 8.1 (3.8-10.6) k/uL RBC 4.01 L (4.30-5.90) m/uL Hgb 12.9 L (13.0-17.5) gm/dL Hct 36.5 L (39.0-53.0) % MCV 90.9 (80.0-100.0) fL MCH 32.1 (25.0-35.0) pg MCHC 35.4 (31.0-37.0) g/dL RDW 13.0 (11.5-15.5) % Plt Count 263 (150-450) k/uL MPV 7.7 Neutrophils % 47 % Lymphocytes % 39 % Monocytes % 6 % Eosinophils % 5 % Basophils % 1 % Neutrophils # 3.8 (1.3-7.7) k/uL Lymphocytes # 3.1 (1.0-4.8) k/uL Monocytes # 0.5 (0-1.0) k/uL Eosinophils # 0.4 (0-0.7) k/uL Basophils # 0.1 (0-0.2) k/uL PT 10.1 (9.0-12.0) sec INR 0.9 (<1.2) APTT 25.1 (22.0-30.0) sec Sodium (137-145) mmol/L Potassium (3.5-5.1) mmol/L Chloride (98-107) mmol/L Carbon Dioxide (22-30) mmol/L Anion Gap mmol/L BUN (9-20) mg/dL Creatinine (0.66-1.25) mg/dL Est GFR (CKD-EPI)AfAm (>60 ml/min/1.73 sqM) Est GFR (CKD-EPI)NonAf (>60 ml/min/1.73 sqM) Glucose (74-99) mg/dL POC Glucose (mg/dL) 200 H (70-110) mg/dL POC Glu Quality Control Lab Technician ID Belval, Clementina Calcium (8.4-10.2) mg/dL Total Bilirubin (0.2-1.3) mg/dL AST (17-59) U/L ALT (4-49) U/L Alkaline Phosphatase (38-126) U/L Total Protein (6.3-8.2) g/dL Albumin (3.5-5.0) g/dL Amylase (30-110) U/L Lipase (23-300) U/L Acetone, Qual (Negative) 05/24/22 Range/Units 08:47 WBC (3.8-10.6) k/uL RBC (4.30-5.90) m/uL Hgb (13.0-17.5) gm/dL Hct (39.0-53.0) % MCV (80.0-100.0) fL MCH (25.0-35.0) pg MCHC (31.0-37.0) g/dL RDW (11.5-15.5) % Plt Count (150-450) k/uL MPV Neutrophils % % Lymphocytes % % Monocytes % % Eosinophils % % Basophils % % Neutrophils # (1.3-7.7) k/uL Lymphocytes # (1.0-4.8) k/uL Monocytes # (0-1.0) k/uL Eosinophils # (0-0.7) k/uL Basophils # (0-0.2) k/uL PT (9.0-12.0) sec INR (<1.2) APTT (22.0-30.0) sec Sodium 141 (137-145) mmol/L Potassium 4.1 (3.5-5.1) mmol/L Chloride 106 (98-107) mmol/L Carbon Dioxide 29 (22-30) mmol/L Anion Gap 6 mmol/L BUN 23 H (9-20) mg/dL Creatinine 0.63 L (0.66-1.25) mg/dL Est GFR (CKD-EPI)AfAm >90 (>60 ml/min/1.73 sqM) Est GFR (CKD-EPI)NonAf >90 (>60 ml/min/1.73 sqM) Glucose 201 H (74-99) mg/dL POC Glucose (mg/dL) (70-110) mg/dL POC Glu Quality Control Lab Technician ID Calcium 7.9 L (8.4-10.2) mg/dL Total Bilirubin 0.5 (0.2-1.3) mg/dL AST 22 (17-59) U/L ALT 15 (4-49) U/L Alkaline Phosphatase 48 (38-126) U/L Total Protein 6.2 L (6.3-8.2) g/dL Albumin 4.0 (3.5-5.0) g/dL Amylase 79 (30-110) U/L Lipase 227 (23-300) U/L Acetone, Qual Negative (Negative) - Radiology Data Interpreted by me: Abdominal x-ray shows nonspecific findings, cannot rule out enteritis or ileus Disposition Clinical Impression: Abdominal pain, Vomiting Disposition: HOME SELF-CARE Condition: Stable Instructions (If sedation given, give patient instructions): Abdominal Pain (ED), Acute Nausea and Vomiting (ED) Additional Instructions: Please do follow-up with your primary care physician in the next day or 2 for recheck. Return for uncontrolled vomiting, fevers, worsening symptoms or any other concerns. Is patient prescribed a controlled substance at d/c from ED?: No Referrals: Brown Valenzuela MD [Primary Care Provider] - 1-2 days Time of Disposition: 10:57
[2022-05-24 09:14] LABS: Basophils # (A) 0.1 k/uL (0-0.2); Basophils % (A) 1 %; Eosinophils # (A) 0.4 k/uL (0-0.7); Eosinophils % (A) 5 %; HCT 36.5 % (39.0-53.0); HGB 12.9 gm/dL (13.0-17.5); Lymphocytes # (A) 3.1 k/uL (1.0-4.8); Lymphocytes % (A) 39 %; MCH 32.1 pg (25.0-35.0); MCHC 35.4 g/dL (31.0-37.0); MCV 90.9 fL (80.0-100.0); Mean Platelet Volume 7.7; Monocytes # (A) 0.5 k/uL (0-1.0); Monocytes % (A) 6 %; Neutrophils # (A) 3.8 k/uL (1.3-7.7); Neutrophils % (A) 47 %; Platelet Count 263 k/uL (150-450); RBC 4.01 m/uL (4.30-5.90); WBC 8.1 k/uL (3.8-10.6)
[2022-05-24 09:31] LABS: ALT 15 U/L (4-49); AST 22 U/L (17-59); African American GFR (CKD) >90 (>60 ml/min/1.73 sqM); Alkaline Phosphatase 48 U/L (38-126); Amylase 79 U/L (30-110); Anion Gap 6 mmol/L; Blood Urea Nitrogen 23 mg/dL (9-20); Calcium 7.9 mg/dL (8.4-10.2); Carbon Dioxide 29 mmol/L (22-30); Chloride 106 mmol/L (98-107); Glucose 201 mg/dL (74-99); Lipase 227 U/L (23-300); Non-African American GFR(CKD) >90 (>60 ml/min/1.73 sqM); Sodium 141 mmol/L (137-145); Total Bilirubin 0.5 mg/dL (0.2-1.3); Total Protein 6.2 g/dL (6.3-8.2)
[2022-05-24 09:33] LABS: INR 0.9 (<1.2); Partial Thromboplastin Time 25.1 sec (22.0-30.0); Potassium 4.1 mmol/L (3.5-5.1); Prothrombin Time 10.1 sec (9.0-12.0)
--- NOTE | 2022-05-24 09:49 | XR ---
EXAMINATION TYPE: XR KUB DATE OF EXAM: 05/24/2022 Comparison: 09/26/2021 Clinical History: 26-year-old male abdominal pain Findings: Lung bases are clear. No evidence for free intraperitoneal air. Small air-fluid levels of the splenic flexure of the colon suggesting liquid stool. No dilated small bowel or differential air-fluid levels. Air extends distally to the rectum. No significant stool melanie en. No suspicious calcifications clearly seen. Impression: 1. No evidence for free air or bowel obstruction. 2. Some liquid stool in the left side of the colon may be transient or could reflect enteritis or ile us.
== END 2022-05-24 12:26 | disposition home or self-care (01) ==
LOC: EC 08:34
DX: R10.9 Unspecified abdominal pain (principal); R11.10 Vomiting, unspecified; E11.9 Type 2 diabetes mellitus without complications; J45.909 Unspecified asthma, uncomplicated; F41.9 Anxiety disorder, unspecified; F32.A Depression, unspecified; F17.290 Nicotine dependence, other tobacco product, uncomplicated; Z79.4 Long term (current) use of insulin
CPT/HCPCS: 36415; 80053; 82150; 82009; 83690; 85025; 85610; 85730; 74018; 99284; 96374; 96375 ×2; 96361 ×2; J2060; J2765

== ENCOUNTER 2022-05-26 12:40 | Emergency (ER) | payer OTHER ==
[2022-05-26 12:46] VITALS: TEMP 97.6
[2022-05-26] MEDS ORDERED: KETOROLAC 15 MG/ML 1 ML VIAL IVP STA (12:51)
[2022-05-26] MEDS ORDERED: FAMOTIDINE 20 MG/2 ML VIAL IV STA (12:51)
[2022-05-26] MEDS ORDERED: SODIUM CHLORIDE 0.9% 2,000 ML IV ONE (12:51)
--- NOTE | 2022-05-26 13:10 | ED ---
General Adult HPI - General Chief complaint: Nausea/Vomiting/Diarrhea Stated complaint: vomiting Time Seen by Provider: 05/26/22 12:41 Source: patient, EMS, RN notes reviewed Mode of arrival: EMS Limitations: no limitations - History of Present Illness Initial comments: 26-year-old male well-known emergency department presents today with chief complaint of abdominal discomfort, nausea vomiting. He states is no localized abdominal pain. States he woke up vomiting this morning. Patient has known type I diabetic poorly controlled. Patient did not take his blood sugar this morning. He does admit to alcohol intake last night. Patient denies reports of fever, chills, night sweats denies any back pain, flank pain no chest pain or shortness of breath. - Related Data Home Medications Medication Instructions Recorded Confirmed INSULIN ASPART (NovoLOG) [NovoLOG 10 unit SQ AC-TID 06/29/21 05/24/22 (formulary)] Gabapentin 600 mg PO TID 12/19/21 05/24/22 Insulin Detemir (Levemir) [Levemir] 25 unit SQ DAILY 04/11/22 05/24/22 Previous Rx's Medication Instructions Recorded Ondansetron Odt [Zofran Odt] 4 mg PO Q8HR PRN #10 tab 05/26/22 Allergies Allergy/AdvReac Type Severity Reaction Status Date / Time No Known Allergies Allergy Verified 05/24/22 11:10 Review of Systems ROS Statement: Those systems with pertinent positive or pertinent negative responses have been documented in the HPI. ROS Other: All systems not noted in ROS Statement are negative. Past Medical History Past Medical History: Asthma, Diabetes Mellitus, Neurologic Disorder, Skin Disorder Additional Past Medical History / Comment(s): IDDM type I, neuropathy bilateral feet, DKA, eczema. History of Any Multi-Drug Resistant Organisms: None Reported Past Surgical History: Adenoidectomy Additional Past Surgical History / Comment(s): 2002 Past Anesthesia/Blood Transfusion Reactions: No Reported Reaction Past Psychological History: Anxiety, Depression Smoking Status: Vaper Past Alcohol Use History: None Reported Past Drug Use History: None Reported - Past Family History Mother Family Medical History: CVA/TIA Additional Family Medical History / Comment(s): TIA Father Family Medical History: Hyperlipidemia, Hypertension Additional Family Medical History / Comment(s): . General Exam Limitations: no limitations General appearance: alert, in no apparent distress Head exam: Present: atraumatic, normocephalic, normal inspection Eye exam: Present: normal appearance, PERRL, EOMI. Absent: scleral icterus, conjunctival injection, periorbital swelling ENT exam: Present: normal exam, mucous membranes moist Neck exam: Present: normal inspection, full ROM. Absent: tenderness, meningismus, lymphadenopathy Respiratory exam: Present: normal lung sounds bilaterally. Absent: respiratory distress, wheezes, rales, rhonchi, stridor Cardiovascular Exam: Present: regular rate, normal rhythm, normal heart sounds. Absent: systolic murmur, diastolic murmur, rubs, gallop, clicks GI/Abdominal exam: Present: soft, tenderness, normal bowel sounds. Absent: distended, guarding, rebound, rigid Course Vital Signs 05/26/22 12:44 Temperature 97.6 F Pulse Rate 99 Respiratory 20 Rate Blood Pressure 115/75 O2 Sat by Pulse 98 Oximetry Medical Decision Making - Medical Decision Making 26-year-old male presented for nausea vomiting. Patient is well-known emergency department does have moderate hyperglycemia was given 2 L of fluids, insulin has improved he's had no recurrent vomiting. Patient did admit to alcohol intake last night, he is advised to refrain from this, have close glucose control patient does not have significant acidosis or anion gap. Was pt. sent in by a medical professional or institution? @ -no Did you speak to anyone other than the patient for history? @ -EMS provided prehospital care , blood glucose Did you review nursing and triage notes? @ -agree and reviewed Were old charts reviewed? @ -no Differential Diagnosis? @ -DKA, nausea vomiting, alcohol intoxication, gastroenteritis, hyperglycemia, this this is not meant to be all inclusive EKG interpreted by me (3pts min.)? @ -no X-rays interpreted by me (1pt min.)? @ -no CT interpreted by me (1pt min.)? @ -no U/S interpreted by me (1pt. min.)? @ -no What testing was considered but not performed? (CT, X-rays, U/S, labs)? Why? @ no What meds were considered but not given? Why? @ -no Did you discuss the management of the patient with other professionals? @ -[no Did you reconcile home meds? @ -no Was smoking cessation discussed for >3mins.? @ -no Was critical care preformed (if so, how long)? @ -no Were there social determinants of health that impacted care today? How? (Homelessness, low income, unemployed, alcoholism, drug addiction, transportation, low edu. Level, literacy, decrease access to med. care, assisted, rehab)? @ -no Was there de-escalation of care discussed even if they declined? (Discuss DNR or withdrawal of care, Hospice)? @ -no What co-morbidities impacted this encounter? (DM, HTN, Smoking, COPD, CAD, Cancer, CVA, Hep., AIDS, mental health diagnosis, sleep apnea, morbid obesity)? @ -Uncontrolled diabetes, alcohol use Was patient admitted / discharged? @ -Discharged Undiagnosed new problem with uncertain prognosis? @ -no Drug Therapy requiring intensive monitoring for toxicity (Heparin, Nitro, Insulin, Cardizem)? @ -no Were any procedures done? @ -no Diagnosis/symptom? @ -Nausea vomiting Acute, or Chronic, or Acute on Chronic? @ -acute Uncomplicated (without systemic symptoms) or Complicated (systemic symptoms)? @ -no Side effects of treatment? @ -no Exacerbation, Progression, or Severe Exacerbation] @ -no Poses a threat to life or bodily function? @ -no Diagnosis/symptom? @ -hyperglycemia Acute, or Chronic, or Acute on Chronic? @ -acute on chronic Uncomplicated (without systemic symptoms) or Complicated (systemic symptoms)? @ -Complicated Side effects of treatment? @ -No Exacerbation, Progression, or Severe Exacerbation] @ -No Poses a threat to life or bodily function? @ -no - Lab Data Result diagrams: 05/26/22 12:56 05/26/22 12:56 Lab Results 05/26/22 05/26/22 05/26/22 Range/Units 12:56 12:56 12:56 WBC 8.1 (3.8-10.6) k/uL RBC 4.10 L (4.30-5.90) m/uL Hgb 13.6 (13.0-17.5) gm/dL Hct 38.9 L (39.0-53.0) % MCV 94.7 (80.0-100.0) fL MCH 33.0 (25.0-35.0) pg MCHC 34.9 (31.0-37.0) g/dL RDW 12.9 (11.5-15.5) % Plt Count 236 (150-450) k/uL MPV 7.9 Neutrophils % 62 % Lymphocytes % 27 % Monocytes % 5 % Eosinophils % 3 % Basophils % 1 % Neutrophils # 5.0 (1.3-7.7) k/uL Lymphocytes # 2.2 (1.0-4.8) k/uL Monocytes # 0.4 (0-1.0) k/uL Eosinophils # 0.3 (0-0.7) k/uL Basophils # 0.1 (0-0.2) k/uL VBG pH (7.31-7.41) VBG pCO2 (37-51) mmHg VBG HCO3 (24-28) mmol/L Sodium 136 L (137-145) mmol/L Potassium 4.8 (3.5-5.1) mmol/L Chloride 101 (98-107) mmol/L Carbon Dioxide 22 (22-30) mmol/L Anion Gap 13 mmol/L BUN 28 H (9-20) mg/dL Creatinine 0.76 (0.66-1.25) mg/dL Est GFR (CKD-EPI)AfAm >90 (>60 ml/min/1.73 sqM) Est GFR (CKD-EPI)NonAf >90 (>60 ml/min/1.73 sqM) Glucose 490 H (74-99) mg/dL POC Glucose (mg/dL) (70-110) mg/dL POC Glu Moving Worker ID Plasma Lactic Acid Len (0.7-2.0) mmol/L Calcium 8.9 (8.4-10.2) mg/dL Total Bilirubin 0.8 (0.2-1.3) mg/dL AST 16 L (17-59) U/L ALT 16 (4-49) U/L Alkaline Phosphatase 73 (38-126) U/L Total Protein 6.6 (6.3-8.2) g/dL Albumin 4.4 (3.5-5.0) g/dL Lipase 279 (23-300) U/L Urine Color Colorless Urine Appearance Clear (Clear) Urine pH 5.5 (5.0-8.0) Ur Specific [place] 1.029 (1.001-1.035) Urine Protein Negative (Negative) Urine Glucose (UA) 4+ H (Negative) Urine Ketones 3+ H (Negative) Urine Blood Negative (Negative) Urine Nitrite Negative (Negative) Urine Bilirubin Negative (Negative) Urine Urobilinogen <2.0 (<2.0) mg/dL Ur Leukocyte Esterase Negative (Negative) Acetone, Qual Positive (Negative) 05/26/22 05/26/22 05/26/22 Range/Units 12:56 12:56 15:16 WBC (3.8-10.6) k/uL RBC (4.30-5.90) m/uL Hgb (13.0-17.5) gm/dL Hct (39.0-53.0) % MCV (80.0-100.0) fL MCH (25.0-35.0) pg MCHC (31.0-37.0) g/dL RDW (11.5-15.5) % Plt Count (150-450) k/uL MPV Neutrophils % % Lymphocytes % % Monocytes % % Eosinophils % % Basophils % % Neutrophils # (1.3-7.7) k/uL Lymphocytes # (1.0-4.8) k/uL Monocytes # (0-1.0) k/uL Eosinophils # (0-0.7) k/uL Basophils # (0-0.2) k/uL VBG pH 7.28 L (7.31-7.41) VBG pCO2 50 (37-51) mmHg VBG HCO3 23 L (24-28) mmol/L Sodium (137-145) mmol/L Potassium (3.5-5.1) mmol/L Chloride (98-107) mmol/L Carbon Dioxide (22-30) mmol/L Anion Gap mmol/L BUN (9-20) mg/dL Creatinine (0.66-1.25) mg/dL Est GFR (CKD-EPI)AfAm (>60 ml/min/1.73 sqM) Est GFR (CKD-EPI)NonAf (>60 ml/min/1.73 sqM) Glucose (74-99) mg/dL POC Glucose (mg/dL) 359 H (70-110) mg/dL POC Glu Moving Worker ID October, Plasma Lactic Acid Len 1.0 (0.7-2.0) mmol/L Calcium (8.4-10.2) mg/dL Total Bilirubin (0.2-1.3) mg/dL AST (17-59) U/L ALT (4-49) U/L Alkaline Phosphatase (38-126) U/L Total Protein (6.3-8.2) g/dL Albumin (3.5-5.0) g/dL Lipase (23-300) U/L Urine Color Urine Appearance (Clear) Urine pH (5.0-8.0) Ur Specific [place] (1.001-1.035) Urine Protein (Negative) Urine Glucose (UA) (Negative) Urine Ketones (Negative) Urine Blood (Negative) Urine Nitrite (Negative) Urine Bilirubin (Negative) Urine Urobilinogen (<2.0) mg/dL Ur Leukocyte Esterase (Negative) Acetone, Qual (Negative) 05/26/22 Range/Units 16:07 WBC (3.8-10.6) k/uL RBC (4.30-5.90) m/uL Hgb (13.0-17.5) gm/dL Hct (39.0-53.0) % MCV (80.0-100.0) fL MCH (25.0-35.0) pg MCHC (31.0-37.0) g/dL RDW (11.5-15.5) % Plt Count (150-450) k/uL MPV Neutrophils % % Lymphocytes % % Monocytes % % Eosinophils % % Basophils % % Neutrophils # (1.3-7.7) k/uL Lymphocytes # (1.0-4.8) k/uL Monocytes # (0-1.0) k/uL Eosinophils # (0-0.7) k/uL Basophils # (0-0.2) k/uL VBG pH (7.31-7.41) VBG pCO2 (37-51) mmHg VBG HCO3 (24-28) mmol/L Sodium (137-145) mmol/L Potassium (3.5-5.1) mmol/L Chloride (98-107) mmol/L Carbon Dioxide (22-30) mmol/L Anion Gap mmol/L BUN (9-20) mg/dL Creatinine (0.66-1.25) mg/dL Est GFR (CKD-EPI)AfAm (>60 ml/min/1.73 sqM) Est GFR (CKD-EPI)NonAf (>60 ml/min/1.73 sqM) Glucose (74-99) mg/dL POC Glucose (mg/dL) 335 H (70-110) mg/dL POC Glu Moving Worker ID Kaci [place] Plasma Lactic Acid Len (0.7-2.0) mmol/L Calcium (8.4-10.2) mg/dL Total Bilirubin (0.2-1.3) mg/dL AST (17-59) U/L ALT (4-49) U/L Alkaline Phosphatase (38-126) U/L Total Protein (6.3-8.2) g/dL Albumin (3.5-5.0) g/dL Lipase (23-300) U/L Urine Color Urine Appearance (Clear) Urine pH (5.0-8.0) Ur Specific [place] (1.001-1.035) Urine Protein (Negative) Urine Glucose (UA) (Negative) Urine Ketones (Negative) Urine Blood (Negative) Urine Nitrite (Negative) Urine Bilirubin (Negative) Urine Urobilinogen (<2.0) mg/dL Ur Leukocyte Esterase (Negative) Acetone, Qual (Negative) Disposition Clinical Impression: Hyperglycemia, Nausea & vomiting Disposition: HOME SELF-CARE Condition: Stable Instructions (If sedation given, give patient instructions): Acute Nausea and Vomiting (ED) Additional Instructions: Please return to the Emergency Department if symptoms worsen or any other concerns. Prescriptions: Ondansetron Odt [Zofran Odt] 4 mg PO Q8HR PRN #10 tab PRN Reason: Nausea Is patient prescribed a controlled substance at d/c from ED?: No Referrals: Brown Valenzuela MD [Primary Care Provider] - 1-2 days Time of Disposition: 16:01
[2022-05-26 13:27] LABS: Basophils # (A) 0.1 k/uL (0-0.2); Basophils % (A) 1 %; Eosinophils # (A) 0.3 k/uL (0-0.7); Eosinophils % (A) 3 %; HCT 38.9 % (39.0-53.0); HGB 13.6 gm/dL (13.0-17.5); Lymphocytes # (A) 2.2 k/uL (1.0-4.8); Lymphocytes % (A) 27 %; MCHC 34.9 g/dL (31.0-37.0); MCV 94.7 fL (80.0-100.0); Mean Platelet Volume 7.9; Monocytes # (A) 0.4 k/uL (0-1.0); Monocytes % (A) 5 %; Neutrophils % (A) 62 %; Platelet Count 236 k/uL (150-450); RDW 12.9 % (11.5-15.5); VBG PH 7.28 (7.31-7.41); WBC 8.1 k/uL (3.8-10.6)
[2022-05-26 13:45] LABS: ALT 16 U/L (4-49); AST 16 U/L (17-59); African American GFR (CKD) >90 (>60 ml/min/1.73 sqM); Albumin 4.4 g/dL (3.5-5.0); Alkaline Phosphatase 73 U/L (38-126); Anion Gap 13 mmol/L; Blood Urea Nitrogen 28 mg/dL (9-20); Calcium 8.9 mg/dL (8.4-10.2); Carbon Dioxide 22 mmol/L (22-30); Chloride 101 mmol/L (98-107); Glucose 490 mg/dL (74-99); Lipase 279 U/L (23-300); Non-African American GFR(CKD) >90 (>60 ml/min/1.73 sqM); Potassium 4.8 mmol/L (3.5-5.1); Sodium 136 mmol/L (137-145); Total Bilirubin 0.8 mg/dL (0.2-1.3); Total Protein 6.6 g/dL (6.3-8.2)
[2022-05-26] MEDS ORDERED: INSULIN REGULAR 100 UNIT/ML VIAL (IV) IV ONE (14:14)
[2022-05-26 15:18] LABS: Glucose,Whole Blood 359 mg/dL (70-110)
[2022-05-26 15:18] LABS: Appearance,Urine Clear (Clear); Bilirubin,Urine Negative (Negative); Blood,Urine Negative (Negative); Color,Urine Colorless; Glucose,Urine (UA) 4+ (Negative); Leukocyte Esterase,Urine Negative (Negative); Nitrite,Urine Negative (Negative); PH, Urine 5.5 (5.0-8.0); Protein,Urine Negative (Negative); Specific Gravity,Urine 1.029 (1.001-1.035); Urobilinogen,Urine <2.0 mg/dL (<2.0)
[2022-05-26 15:33] LABS: Ketones,Urine 3+ (Negative)
[2022-05-26 16:09] LABS: Glucose,Whole Blood 335 mg/dL (70-110)
[2022-05-26] MEDS ORDERED: INSULIN ASPART (NovoLOG) 100 UNIT/ML VIAL SQ ONE (16:11)
[2022-05-26 16:32] VITALS: BP 117/83; PULSE 73; RESP 18
== END 2022-05-26 16:32 | disposition home or self-care (01) ==
LOC: EC 12:40
DX: R11.2 Nausea with vomiting, unspecified (principal); E11.40 Type 2 diabetes mellitus with diabetic neuropathy, unspecified; J45.909 Unspecified asthma, uncomplicated; F41.9 Anxiety disorder, unspecified; F32.A Depression, unspecified; Z79.4 Long term (current) use of insulin
CPT/HCPCS: 36415; 80053; 82803; 82009; 83605; 83690; 85025; 81003; 99284; 96374; 96375 ×2; 96361; J1885; J1790

== ENCOUNTER 2022-05-27 12:31 | Inpatient (IN) | payer OTHER ==
[2022-05-27 12:35] LABS: Glucose,Whole Blood 429 mg/dL (70-110)
[2022-05-27] MEDS ORDERED: SODIUM CHLORIDE 0.9% 1,000 ML IV STA ×2 (12:45→13:44)
[2022-05-27 13:16] LABS: Glucose,Whole Blood 451 mg/dL (70-110)
[2022-05-27] MEDS ORDERED: ONDANSETRON 4 MG/2 ML VIAL IVP STA (13:21)
[2022-05-27 13:26] LABS: Basophils # (A) 0.1 k/uL (0-0.2); Basophils % (A) 1 %; Eosinophils # (A) 0.2 k/uL (0-0.7); Eosinophils % (A) 2 %; HCT 43.8 % (39.0-53.0); HGB 14.5 gm/dL (13.0-17.5); Hypochromasia Slight; Lymphocytes % (A) 22 %; MCH 32.2 pg (25.0-35.0); MCHC 33.1 g/dL (31.0-37.0); MCV 97.4 fL (80.0-100.0); Monocytes # (A) 0.3 k/uL (0-1.0); Monocytes % (A) 3 %; Neutrophils # (A) 6.3 k/uL (1.3-7.7); Neutrophils % (A) 71 %; Platelet Count 339 k/uL (150-450); RDW 12.5 % (11.5-15.5); VBG PH 7.28 (7.31-7.41)
--- NOTE | 2022-05-27 13:36 | ED ---
General Adult HPI - General Chief complaint: Nausea/Vomiting/Diarrhea Stated complaint: Hyperglycemia Time Seen by Provider: 05/27/22 12:45 Source: patient, EMS Mode of arrival: EMS Limitations: no limitations - History of Present Illness Initial comments: Dictation was produced using [employer] dictation software. please excuse any grammatical, word or spelling errors. Chief Complaint: 26-year-old male presents to the ER for nausea vomiting. He is well-known to our ER for DKA History of Present Illness: he is 26-year-old male who has past medical history of diabetes he has extensive history of noncompliance. Patient has been adm itted to the hospital on multiple occasions for recurrence of DKA. Patient reports that he is not compliant with his diabetes medications today. Patient denies nausea vomiting and abdominal pain. The ROS documented in this emergency department record has been reviewed and confirmed by me. Those systems with pertinent positive or negative responses have been documented in the HPI. All other systems are other negative and/or noncontributory. PHYSICAL EXAM: General Impression: Alert and oriented x3, not in acute distress, retching, smells of acetone HEENT: Normocephalic atraumatic, extra-ocular movements intact, pupils equal and reactive to light bilaterally, dry mucous membranes Cardiovascular: Heart regular rate and rhythm Chest: Able to complete full sentences, no retractions, no tachypnea Abdomen: abdomen soft, diffuse tenderness, non-distended, no organomegaly Musculoskeletal: Pulses present and equal in all extremities, no peripheral edema Motor: no focal deficits noted Neurological: CN II-XII grossly intact, no focal motor or sensory deficits noted Skin: Intact with no visualized rashes Psych: Normal affect and mood ED course: 26-year-old male well-known to emergency department for frequent visitations for diabetic ketoacidosis presents to the emergency department again for diabetic ketoacidosis. Signs upon arrival shows heart rate of 124, rest of vital signs within acceptable limits. Nursing notes and chart review was performed Laboratory evaluation obtained. CBC unremarkable. Coag panel is negative. Venous blood gas shows pH of 7.28 a CO2 of 23 and bicarb 10. Metabolic panel shows bicarb 9 with anion gap 24. Glucose of 467. Acetone positive. Clinical presentation consistent with diabetic ketoacidosis. Patient is discussed with Dr. Jensen and Dr. Gonzalez who are willing to accept patient's care to the ICU. My EKG interpretation: Ventricular rate 117, sinus tachycardia,. 176, QRS 91, QTc 386. No W[place] prolongation, no QTC prolongation, no ST or T-wave changes noted. Overall, this EKG is unremarkable Was pt. sent in by a medical professional or institution? @No Did you speak to anyone other than the patient for history? @No Did you review nursing and triage notes? @Yes, agree Were old charts reviewed? @Recent discharge summary, progress note and pulmonary consultation note from last month was reviewed Differential Diagnosis? @ MDM Differential Abdominal Pain Women: Appendicitis, Cholecystitis, diverticulosis, ischemic bowel, pancreatitis, hepatitis, UTI, gastroenteritis, AAA, incarcerated hernia, bowel obstruction, constipation, inflammatory bowel, hepatitis, peptic ulcer disease, splenic infarction, perforated viscus, vulvitis, ovarian torsion, PID, kidney stone, placenta abruption... This is not meant to be an all-inclusive list EKG interpreted by me (3pts min.)? @Yes, see above X-rays interpreted by me (1pt min.)? @ [none] CT interpreted by me (1pt min.)? @ [none] U/S interpreted by me (1pt. min.)? @ [none] What testing was considered but not performed? (CT, X-rays, U/S, labs)? Why? @CT of the abdomen was considered however abdominal pain likely secondary to metabolic acidosis What meds were considered but not given? Why? @ [none] Did you discuss the management of the patient with other professionals? @Intensivists and hospitalist Did you reconcile home meds? @ [none] Was smoking cessation discussed for >3mins.? @ [none] Was critical care preformed (if so, how long)? @Yes, 77 minutes Were there social determinants of health that impacted care today? How? (Homelessness, low income, unemployed, alcoholism, drug addiction, transportation, low edu. Level, literacy, decrease access to med. care, half-way, rehab)? @Extended history of medication noncompliance Was there de-escalation of care discussed even if they declined? (Discuss DNR or withdrawal of care, Hospice)? @Not applicable What co-morbidities impacted this encounter? (DM, HTN, Smoking, COPD, CAD, Cancer, CVA, Hep., AIDS, mental health diagnosis, sleep apnea, morbid obesity)? @None Was patient admitted / discharged? @Admitted Undiagnosed new problem with uncertain prognosis? @ [none] Drug Therapy requiring intensive monitoring for toxicity (Heparin, Nitro, Insulin, Cardizem)? @Insulin and blood sugars, yes Were any procedures done? @ [none] Diagnosis/symptom? @Severe diabetic ketoacidosis Acute, or Chronic, or Acute on Chronic? @Acute on chronic Uncomplicated (without systemic symptoms) or Complicated (systemic symptoms)? @Complicated Side effects of treatment? @ [none] Exacerbation, Progression, or Severe Exacerbation] @Severe exacerbation Poses a threat to life or bodily function? @yes - Related Data Home Medications Medication Instructions Recorded Confirmed INSULIN ASPART (NovoLOG) [NovoLOG 10 unit SQ AC-TID 06/29/21 05/27/22 (formulary)] Gabapentin 600 mg PO TID 12/19/21 05/27/22 Insulin Detemir (Levemir) [Levemir] 25 unit SQ DAILY 04/11/22 05/27/22 Previous Rx's Medication Instructions Recorded Ondansetron Odt [Zofran Odt] 4 mg PO Q8HR PRN #10 tab 05/26/22 Allergies Allergy/AdvReac Type Severity Reaction Status Date / Time No Known Allergies Allergy Verified 05/24/22 11:10 Review of Systems ROS Statement: Those systems with pertinent positive or pertinent negative responses have been documented in the HPI. ROS Other: All systems not noted in ROS Statement are negative. Past Medical History Past Medical History: Asthma, Diabetes Mellitus, Neurologic Disorder, Skin Disorder Additional Past Medical History / Comment(s): IDDM type I, neuropathy bilateral feet, DKA, eczema. History of Any Multi-Drug Resistant Organisms: None Reported Past Surgical History: Adenoidectomy Additional Past Surgical History / Comment(s): 2002 Past Anesthesia/Blood Transfusion Reactions: No Reported Reaction Past Psychological History: Anxiety, Depression Smoking Status: Vaper Past Alcohol Use History: None Reported Past Drug Use History: None Reported - Past Family History Mother Family Medical History: CVA/TIA Additional Family Medical History / Comment(s): TIA Father Family Medical History: Hyperlipidemia, Hypertension Additional Family Medical History / Comment(s): . General Exam Limitations: no limitations Course Vital Signs 05/27/22 12:34 Temperature 98.7 F Pulse Rate 124 H Respiratory 18 Rate Blood Pressure 131/87 O2 Sat by Pulse 100 Oximetry Medical Decision Making - Lab Data Result diagrams: 05/27/22 13:18 05/27/22 13:18 Lab Results 05/27/22 05/27/22 05/27/22 Range/Units 12:34 13:15 13:18 WBC 9.0 (3.8-10.6) k/uL RBC 4.50 (4.30-5.90) m/uL Hgb 14.5 (13.0-17.5) gm/dL Hct 43.8 (39.0-53.0) % MCV 97.4 (80.0-100.0) fL MCH 32.2 (25.0-35.0) pg MCHC 33.1 (31.0-37.0) g/dL RDW 12.5 (11.5-15.5) % Plt Count 339 (150-450) k/uL MPV 8.0 Neutrophils % 71 % Lymphocytes % 22 % Monocytes % 3 % Eosinophils % 2 % Basophils % 1 % Neutrophils # 6.3 (1.3-7.7) k/uL Lymphocytes # 2.0 (1.0-4.8) k/uL Monocytes # 0.3 (0-1.0) k/uL Eosinophils # 0.2 (0-0.7) k/uL Basophils # 0.1 (0-0.2) k/uL Hypochromasia Slight PT (9.0-12.0) sec INR (<1.2) APTT (22.0-30.0) sec VBG pH (7.31-7.41) VBG pCO2 (37-51) mmHg VBG HCO3 (24-28) mmol/L Sodium (137-145) mmol/L Potassium (3.5-5.1) mmol/L Chloride (98-107) mmol/L Carbon Dioxide (22-30) mmol/L Anion Gap mmol/L BUN (9-20) mg/dL Creatinine (0.66-1.25) mg/dL Est GFR (CKD-EPI)AfAm (>60 ml/min/1.73 sqM) Est GFR (CKD-EPI)NonAf (>60 ml/min/1.73 sqM) Glucose (74-99) mg/dL POC Glucose (mg/dL) 429 H 451 H (70-110) mg/dL POC Glu Manager Benefit ID Clementina Alexander Brittni Plasma Lactic Acid Len (0.7-2.0) mmol/L Calcium (8.4-10.2) mg/dL Magnesium (1.6-2.3) mg/dL Total Bilirubin (0.2-1.3) mg/dL AST (17-59) U/L ALT (4-49) U/L Alkaline Phosphatase (38-126) U/L Total Protein (6.3-8.2) g/dL Albumin (3.5-5.0) g/dL Acetone, Qual (Negative) 05/27/22 05/27/22 05/27/22 Range/Units 13:18 13:18 13:18 WBC (3.8-10.6) k/uL RBC (4.30-5.90) m/uL Hgb (13.0-17.5) gm/dL Hct (39.0-53.0) % MCV (80.0-100.0) fL MCH (25.0-35.0) pg MCHC (31.0-37.0) g/dL RDW (11.5-15.5) % Plt Count (150-450) k/uL MPV Neutrophils % % Lymphocytes % % Monocytes % % Eosinophils % % Basophils % % Neutrophils # (1.3-7.7) k/uL Lymphocytes # (1.0-4.8) k/uL Monocytes # (0-1.0) k/uL Eosinophils # (0-0.7) k/uL Basophils # (0-0.2) k/uL Hypochromasia PT 10.3 (9.0-12.0) sec INR 1.0 (<1.2) APTT 19.7 L (22.0-30.0) sec VBG pH (7.31-7.41) VBG pCO2 (37-51) mmHg VBG HCO3 (24-28) mmol/L Sodium 135 L (137-145) mmol/L Potassium 5.0 (3.5-5.1) mmol/L Chloride 102 (98-107) mmol/L Carbon Dioxide 9 L* (22-30) mmol/L Anion Gap 24 mmol/L BUN 18 (9-20) mg/dL Creatinine 0.83 (0.66-1.25) mg/dL Est GFR (CKD-EPI)AfAm >90 (>60 ml/min/1.73 sqM) Est GFR (CKD-EPI)NonAf >90 (>60 ml/min/1.73 sqM) Glucose 467 H (74-99) mg/dL POC Glucose (mg/dL) (70-110) mg/dL POC Glu Manager Benefit ID Plasma Lactic Acid Len 2.1 H* (0.7-2.0) mmol/L Calcium 9.0 (8.4-10.2) mg/dL Magnesium 1.7 (1.6-2.3) mg/dL Total Bilirubin 1.0 (0.2-1.3) mg/dL AST 16 L (17-59) U/L ALT 17 (4-49) U/L Alkaline Phosphatase 82 (38-126) U/L Total Protein 6.9 (6.3-8.2) g/dL Albumin 4.7 (3.5-5.0) g/dL Acetone, Qual Positive (Negative) 05/27/22 Range/Units 13:18 WBC (3.8-10.6) k/uL RBC (4.30-5.90) m/uL Hgb (13.0-17.5) gm/dL Hct (39.0-53.0) % MCV (80.0-100.0) fL MCH (25.0-35.0) pg MCHC (31.0-37.0) g/dL RDW (11.5-15.5) % Plt Count (150-450) k/uL MPV Neutrophils % % Lymphocytes % % Monocytes % % Eosinophils % % Basophils % % Neutrophils # (1.3-7.7) k/uL Lymphocytes # (1.0-4.8) k/uL Monocytes # (0-1.0) k/uL Eosinophils # (0-0.7) k/uL Basophils # (0-0.2) k/uL Hypochromasia PT (9.0-12.0) sec INR (<1.2) APTT (22.0-30.0) sec VBG pH 7.28 L (7.31-7.41) VBG pCO2 23 L (37-51) mmHg VBG HCO3 10 L (24-28) mmol/L Sodium (137-145) mmol/L Potassium (3.5-5.1) mmol/L Chloride (98-107) mmol/L Carbon Dioxide (22-30) mmol/L Anion Gap mmol/L BUN (9-20) mg/dL Creatinine (0.66-1.25) mg/dL Est GFR (CKD-EPI)AfAm (>60 ml/min/1.73 sqM) Est GFR (CKD-EPI)NonAf (>60 ml/min/1.73 sqM) Glucose (74-99) mg/dL POC Glucose (mg/dL) (70-110) mg/dL POC Glu Manager Benefit ID Plasma Lactic Acid Len (0.7-2.0) mmol/L Calcium (8.4-10.2) mg/dL Magnesium (1.6-2.3) mg/dL Total Bilirubin (0.2-1.3) mg/dL AST (17-59) U/L ALT (4-49) U/L Alkaline Phosphatase (38-126) U/L Total Protein (6.3-8.2) g/dL Albumin (3.5-5.0) g/dL Acetone, Qual (Negative) Disposition Clinical Impression: DKA (diabetic ketoacidosis) Disposition: ADMITTED IP TO THIS [facility] Condition: Serious Referrals: Brown Valenzuela MD [Primary Care Provider] - 1-2 days Decision Time: 15:14
[2022-05-27 13:37] LABS: ALT 17 U/L (4-49); AST 16 U/L (17-59); African American GFR (CKD) >90 (>60 ml/min/1.73 sqM); Albumin 4.7 g/dL (3.5-5.0); Alkaline Phosphatase 82 U/L (38-126); Anion Gap 24 mmol/L; Blood Urea Nitrogen 18 mg/dL (9-20); Chloride 102 mmol/L (98-107); Glucose 467 mg/dL (74-99); Magnesium 1.7 mg/dL (1.6-2.3); Non-African American GFR(CKD) >90 (>60 ml/min/1.73 sqM); Sodium 135 mmol/L (137-145); Total Protein 6.9 g/dL (6.3-8.2)
[2022-05-27 13:38] LABS: Carbon Dioxide 9 mmol/L (22-30)
[2022-05-27] MEDS ORDERED: INSULIN REGULAR BOLUS (FROM DRIP BAG) IV ONE (13:45)
[2022-05-27] MEDS ORDERED: Potassium Replacement Protocol 1 EACH MISC MISCELLANE PRN (13:45)
[2022-05-27] MEDS ORDERED: Magnesium Replacement Protocol 1 EACH MISC MISCELLANE PRN ×2 (13:45→16:21)
[2022-05-27 13:46] LABS: Prothrombin Time 10.3 sec (9.0-12.0)
[2022-05-27 13:48] LABS: Partial Thromboplastin Time 19.7 sec (22.0-30.0)
[2022-05-27] MEDS: INSULIN REGULAR 100 UNIT in SODIUM CHLORIDE 0.9% 100 ML IV SCH (14:30)
[2022-05-27] MEDS ORDERED: NALOXONE 0.4 MG/ML 1 ML VIAL IV PRN (15:08)
[2022-05-27] MEDS ORDERED: ONDANSETRON 4 MG/2 ML VIAL IVP PRN (15:20)
--- NOTE | 2022-05-27 15:21 | P.CNPUL ---
History of Present Illness Consult date: 05/27/22 Requesting physician: Brown Valenzuela Reason for consult: other (Critical care management) Chief complaint: Diabetic ketoacidosis History of present illness: This is a 26-year-old male patient with a known history of type 1 diabetes mellitus with multiple episodes of diabetic ketoacidosis and questionable compliance. He is to be on Levemir insulin 25 units daily along with a NovoLog 10 units before meals in the outpatient setting. He presented here to the emergency room today with nausea, vomiting, diarrhea. He was here yesterday and left AGAINST MEDICAL ADVICE. He had been seen in the emergency room 30 times in 2021. He is presently seen in the ER on the stretcher in room 18. He is laying on his right side. He has had ongoing issues with vomiting. His serum bicarb of 9. Anion gap 24. Glucose 467. Acetone positive. White count 9.0. Hemoglobin 14.5. Venous blood gas revealed a bicarb of 10, pCO2 23 and a pH of 7.28. Sodium 135. Potassium 5.0. Chloride 102. BUN 18. Creatinine 0.83. He is currently on insulin drip at 6 units an hour. He is receiving 2 L of fluid currently. He is maintaining O2 saturations in the 90s on room air. He is tachycardic at 124. Blood pressure stable. Afebrile. He is cachectic. BMI of 20 mg/m. Review of Systems REVIEW OF SYSTEMS: CONSTITUTIONAL: Positive for ongoing weight loss. EYES: Denies change in vision. EARS, NOSE, MOUTH, THROAT: Denies headaches, denies sore throat. CARDIOVASCULAR: Denies chest pain, palpitations or syncopal episodes. RESPIRATORY: Denies shortness of breath, cough, congestion or hemoptysis. GASTROINTESTINAL: Positive for nausea, vomiting, diarrhea GENITOURINARY: Denies hematuria, denies infections. MUSKULOSKELETAL: Denies pain, denies swelling. INTEGUMENTARY: Denies rash, denies eczema. NEUROLOGICAL: Denies recent memory loss, no recent seizure activity. PSYCHIATRIC: Denies anxiety, denies depression. HEMATOLOGIC/LYMPHATIC: Denies anemia, denies enlarged lymph nodes. Past Medical History Past Medical History: Asthma, Diabetes Mellitus, Neurologic Disorder, Skin Disorder Additional Past Medical History / Comment(s): IDDM type I, neuropathy bilateral feet, DKA, eczema. History of Any Multi-Drug Resistant Organisms: None Reported Past Surgical History: Adenoidectomy Additional Past Surgical History / Comment(s): 2002 Past Anesthesia/Blood Transfusion Reactions: No Reported Reaction Past Psychological History: Anxiety, Depression Smoking Status: Vaper Past Alcohol Use History: None Reported Past Drug Use History: None Reported - Past Family History Mother Family Medical History: CVA/TIA Additional Family Medical History / Comment(s): TIA Father Family Medical History: Hyperlipidemia, Hypertension Additional Family Medical History / Comment(s): . Medications and Allergies Home Medications Medication Instructions Recorded Confirmed Type INSULIN ASPART (NovoLOG) [NovoLOG 10 unit SQ AC-TID 06/29/21 05/27/22 History (formulary)] Gabapentin 600 mg PO TID 12/19/21 05/27/22 History Insulin Detemir (Levemir) [Levemir] 25 unit SQ DAILY 04/11/22 05/27/22 History Ondansetron Odt [Zofran Odt] 4 mg PO Q8HR PRN #10 tab 05/26/22 05/27/22 Rx Allergies Allergy/AdvReac Type Severity Reaction Status Date / Time No Known Allergies Allergy Verified 05/24/22 11:10 Physical Exam Vitals: Vital Signs Temp Pulse Resp BP Pulse Ox 05/27/22 12:34 98.7 F 124 H 18 131/87 100 Intake and Output 05/27/22 05/27/22 05/27/22 06:59 14:59 22:59 Other: Weight 58.967 kg GENERAL EXAM: Weak, thin, arousable 26-year-old male, on room air, comfortable in no apparent distress. HEAD: Normocephalic. EYES: Normal reaction of pupils, equal size. NOSE: Clear with pink turbinates. THROAT: No erythema or exudates. NECK: No masses, no JVD. CHEST: No chest wall deformity. LUNGS: Equal air entry with no crackles, wheeze, rhonchi or dullness. CVS: S1 and S2 normal with no audible murmur, regular rhythm. ABDOMEN: No hepatosplenomegaly, normal bowel sounds, no guarding or rigidity. SPINE: No scoliosis or deformity SKIN: No rashes CENTRAL NERVOUS SYSTEM: No focal deficits, tone is normal in all 4 extremities. EXTREMITIES: There is no peripheral edema. No clubbing, no cyanosis. Peripheral pulses are intact. Results - Laboratory Findings CBC and BMP: 05/27/22 13:18 05/27/22 13:18 PT/INR, D-dimer PT 10.3 sec (9.0-12.0) 05/27/22 13:18 INR 1.0 (<1.2) 05/27/22 13:18 Abnormal lab findings: Abnormal Labs 05/27/22 05/27/22 05/27/22 12:34 13:15 13:18 APTT 19.7 L VBG pH VBG pCO2 VBG HCO3 Sodium Carbon Dioxide Glucose POC Glucose (mg/dL) 429 H 451 H Plasma Lactic Acid Len AST 05/27/22 05/27/22 05/27/22 13:18 13:18 13:18 APTT VBG pH 7.28 L VBG pCO2 23 L VBG HCO3 10 L Sodium 135 L Carbon Dioxide 9 L* Glucose 467 H POC Glucose (mg/dL) Plasma Lactic Acid Len 2.1 H* AST 16 L Assessment and Plan Assessment: Acute diabetic ketoacidosis suspect secondary to medication noncompliance along with nausea, vomiting, diarrhea and the patient did leave AGAINST MEDICAL ADVICE yesterday 05/26/2022 from the emergency department. Anion gap metabolic acidosis secondary to above History of medication noncompliance, 30 visits to the emergency room in 2021 Diabetes mellitus, type I. Was to be on Levemir 25 units daily along with NovoLog scale 10 units 3 times a day with meals Diabetic neuropathy History of vaping History of previous drug overdose and suicide attempts History of major depression and generalized anxiety History of marijuana use Plan: The patient was seen and evaluated Medications and labs reviewed Continue insulin at 6 units an hour Titrate as tolerated Continue DKA protocol Admit to the intensive care unit Zofran for nausea Continue fluid resuscitation Social work regarding medication compliance We will continue to follow and make further recommendations based on his clinical status I have personally seen and examined the patient, performed the documentation and the assessment and plan as written. Number of minutes spent on the visit: 20.
[2022-05-27 15:27] LABS: Appearance,Urine Clear (Clear); Bilirubin,Urine Negative (Negative); Blood,Urine Negative (Negative); Color,Urine Colorless; Glucose,Urine (UA) 4+ (Negative); Leukocyte Esterase,Urine Negative (Negative); Nitrite,Urine Negative (Negative); PH, Urine 5.5 (5.0-8.0); Protein,Urine Negative (Negative); Specific Gravity,Urine 1.025 (1.001-1.035); Urobilinogen,Urine <2.0 mg/dL (<2.0)
[2022-05-27 15:43] LABS: Glucose,Whole Blood 284 mg/dL (70-110)
[2022-05-27] MEDS: D5-0.45% NACL WITH KCL 20MEQ/L 1,000 ML IV SCH ×2 (15:56→23:00)
[2022-05-27] MEDS: SODIUM CHLORIDE 0.9% 1,000 ML IV SCH ×2 (15:59→16:17)
[2022-05-27 16:04] LABS: Ketones,Urine 4+ (Negative)
--- NOTE | 2022-05-27 16:26 | P.HPIM ---
History of Present Illness H&P Date: 05/27/22 Chief Complaint: Hyperglycemia 26-year-old male patient with a known history of type 1 diabetes mellitus with multiple episodes of diabetic ketoacidosis and questionable compliance. He is to be on Levemir insulin 25 units daily along with a NovoLog 10 units before meals in the outpatient setting. He presented here to the emergency room today with nausea, vomiting, diarrhea. He was here yesterday and left AGAINST MEDICAL ADVICE. He had been seen in the emergency room 30 times in 2021. He is presently seen in the ER on the stretcher in room 18. He is laying on his right side. He has had ongoing issues with vomiting. His serum bicarb of 9. Anion gap 24. Glucose 467. Acetone positive. White count 9.0. Hemoglobin 14.5. Venous blood gas revealed a bicarb of 10, pCO2 23 and a pH of 7.28. Sodium 135. Potassium 5.0. Chloride 102. BUN 18. Creatinine 0.83. He is currently on insulin drip at 6 units an hour. Review of Systems REVIEW OF SYSTEMS: CONSTITUTIONAL: No fever, no malaise, no fatigue. HEENT: No recent visual problems or hearing problems. Denied any sore throat. CARDIOVASCULAR: No chest pain, orthopnea, PND, no palpitations, no syncope. PULMONARY: No shortness of breath, no cough, no hemoptysis. GASTROINTESTINAL: No diarrhea, no nausea, no vomiting, no abdominal pain. NEUROLOGICAL: No headaches, no weakness, no numbness. HEMATOLOGICAL: Denies any bleeding or petechiae. GENITOURINARY: Denies any burning micturition, frequency, or urgency. MUSCULOSKELETAL/RHEUMATOLOGICAL: Denies any joint pain, swelling, or any muscle pain. ENDOCRINE: Denies any polyuria or polydipsia. The rest of the 14-point review of systems is negative. Past Medical History Past Medical History: Asthma, Diabetes Mellitus, Neurologic Disorder, Skin Disorder Additional Past Medical History / Comment(s): IDDM type I, neuropathy bilateral feet, DKA, eczema. History of Any Multi-Drug Resistant Organisms: None Reported Past Surgical History: Adenoidectomy Additional Past Surgical History / Comment(s): 2002 Past Anesthesia/Blood Transfusion Reactions: No Reported Reaction Past Psychological History: Anxiety, Depression Smoking Status: Vaper Past Alcohol Use History: None Reported Past Drug Use History: None Reported - Past Family History Mother Family Medical History: CVA/TIA Additional Family Medical History / Comment(s): TIA Father Family Medical History: Hyperlipidemia, Hypertension Additional Family Medical History / Comment(s): . Medications and Allergies Home Medications Medication Instructions Recorded Confirmed Type INSULIN ASPART (NovoLOG) [NovoLOG 10 unit SQ AC-TID 06/29/21 05/27/22 History (formulary)] Gabapentin 600 mg PO TID 12/19/21 05/27/22 History Insulin Detemir (Levemir) [Levemir] 25 unit SQ DAILY 04/11/22 05/27/22 History Ondansetron Odt [Zofran Odt] 4 mg PO Q8HR PRN #10 tab 05/26/22 05/27/22 Rx Allergies Allergy/AdvReac Type Severity Reaction Status Date / Time No Known Allergies Allergy Verified 05/24/22 11:10 Physical Exam Vitals: Vital Signs Temp Pulse Resp BP Pulse Ox 05/27/22 12:34 98.7 F 124 H 18 131/87 100 Intake and Output 05/27/22 05/27/22 05/27/22 06:59 14:59 22:59 Other: Weight 58.967 kg GENERAL EXAM: Weak, thin, arousable 26-year-old male, on room air, comfortable in no apparent distress. HEAD: Normocephalic. EYES: Normal reaction of pupils, equal size. NECK: No masses, no JVD. CHEST: No chest wall deformity. LUNGS: Equal air entry with no crackles, wheeze, rhonchi or dullness. CVS: S1 and S2 normal with no audible murmur, regular rhythm. ABDOMEN: No hepatosplenomegaly, normal bowel sounds, no guarding or rigidity. SKIN: No rashes CENTRAL NERVOUS SYSTEM: No focal deficits, tone is normal in all 4 extremities. EXTREMITIES: There is no peripheral edema. No clubbing, no cyanosis. Peripheral pulses are intact. Results CBC & Chem 7: 05/27/22 13:18 05/27/22 13:18 Labs: Abnormal Lab Results - Last 24 Hours (Table) 05/27/22 05/27/22 05/27/22 Range/Units 12:34 13:15 13:18 APTT 19.7 L (22.0-30.0) sec VBG pH (7.31-7.41) VBG pCO2 (37-51) mmHg VBG HCO3 (24-28) mmol/L Sodium (137-145) mmol/L Carbon Dioxide (22-30) mmol/L Glucose (74-99) mg/dL POC Glucose (mg/dL) 429 H 451 H (70-110) mg/dL Plasma Lactic Acid Len (0.7-2.0) mmol/L AST (17-59) U/L 05/27/22 05/27/22 05/27/22 Range/Units 13:18 13:18 13:18 APTT (22.0-30.0) sec VBG pH 7.28 L (7.31-7.41) VBG pCO2 23 L (37-51) mmHg VBG HCO3 10 L (24-28) mmol/L Sodium 135 L (137-145) mmol/L Carbon Dioxide 9 L* (22-30) mmol/L Glucose 467 H (74-99) mg/dL POC Glucose (mg/dL) (70-110) mg/dL Plasma Lactic Acid Len 2.1 H* (0.7-2.0) mmol/L AST 16 L (17-59) U/L Assessment and Plan Assessment: 1. Acute diabetic ketoacidosis; likely related to noncompliance with episode of intractable nausea vomiting and diarrhea yesterday; patient was seen in ED yesterday and was recommended admission but he left AGAINST MEDICAL ADVICE from emergency department; patient has been placed in ICU - Patient has been placed on IV insulin infusion at 6 units per hour with plans to titrate and wean according to protocol - IV fluids and close monitoring of chemical profile according to the DKA protocol Continue with symptomatic treatment of nausea and vomiting 2. Anion gap metabolic acidosis; as indicated above patient is being treated with IV fluid and insulin infusion; we will plan to add bicarbonate infusion if needed 3. Diabetes mellitus type 1 controlled with insulin along with diabetic neuropathy patient is supposed to be taking 25 units of Levemir with 10 units of NovoLog before every meal; Reports of poor compliance and patient has been to the ER with recurrent episodes of DKA, 30 times this past year - We will continue with IV insulin infusion with plans to switch to long-acting insulin once the anion gap closes and blood sugar is improved 4. History of drug abuse and previous history of suicidal attempt 5. Major depression/generalized anxiety disorder; we'll plan to consult psych pending clinical outcome
[2022-05-27 16:40] LABS: Glucose,Whole Blood 219 mg/dL (70-110)
[2022-05-27 17:32] LABS: African American GFR (CKD) >90 (>60 ml/min/1.73 sqM); Anion Gap 15 mmol/L; Blood Urea Nitrogen 17 mg/dL (9-20); Carbon Dioxide 13 mmol/L (22-30); Chloride 111 mmol/L (98-107); Glucose 227 mg/dL (74-99); Non-African American GFR(CKD) >90 (>60 ml/min/1.73 sqM); Phosphorus 1.3 mg/dL (2.5-4.5); Sodium 139 mmol/L (137-145)
[2022-05-27 17:45] LABS: Glucose,Whole Blood 193 mg/dL (70-110)
[2022-05-27] MEDS: MAGNESIUM SULFATE-D5W PMX 1 GM in DEXTROSE/WATER 1 100ML.BAG IVPB SCH ×2 (18:33→19:46)
[2022-05-27 18:58] LABS: Glucose,Whole Blood 174 mg/dL (70-110)
[2022-05-27] MEDS ORDERED: Phosphorus Replacement Protoco 1 EACH MISC MISCELLANE PRN (19:42)
[2022-05-27 20:19] LABS: Glucose,Whole Blood 188 mg/dL (70-110)
[2022-05-27] MEDS: SODIUM PHOSPHATE 10 MMOL in SODIUM CHLORIDE 0.9% 250 ML IVPB SCH ×2 (20:23→23:01)
[2022-05-27 21:03] LABS: Glucose,Whole Blood 146 mg/dL (70-110)
[2022-05-27] MEDS ORDERED: METOPROLOL TARTRATE 25 MG TAB PO STA (22:02)
[2022-05-27 22:04] LABS: African American GFR (CKD) >90 (>60 ml/min/1.73 sqM); Anion Gap 9 mmol/L; Blood Urea Nitrogen 17 mg/dL (9-20); Carbon Dioxide 20 mmol/L (22-30); Chloride 107 mmol/L (98-107); Glucose 148 mg/dL (74-99); Non-African American GFR(CKD) >90 (>60 ml/min/1.73 sqM); Phosphorus 1.8 mg/dL (2.5-4.5); Potassium 4.3 mmol/L (3.5-5.1); Sodium 136 mmol/L (137-145)
[2022-05-27 22:13] LABS: Glucose,Whole Blood 143 mg/dL (70-110)
[2022-05-27 23:22] LABS: Glucose,Whole Blood 131 mg/dL (70-110)
[2022-05-28 00:09] LABS: Glucose,Whole Blood 116 mg/dL (70-110)
[2022-05-28] MEDS: SODIUM PHOSPHATE 10 MMOL in SODIUM CHLORIDE 0.9% 250 ML IVPB SCH (01:02)
[2022-05-28 01:31] LABS: Glucose,Whole Blood 143 mg/dL (70-110)
[2022-05-28 02:18] LABS: Glucose,Whole Blood 158 mg/dL (70-110)
[2022-05-28 03:04] LABS: Glucose,Whole Blood 151 mg/dL (70-110)
[2022-05-28 03:58] LABS: Glucose,Whole Blood 193 mg/dL (70-110)
[2022-05-28 05:02] LABS: Glucose,Whole Blood 213 mg/dL (70-110)
[2022-05-28] MEDS: D5-0.45% NACL WITH KCL 20MEQ/L 1,000 ML IV SCH ×3 (05:08→17:48)
[2022-05-28 06:07] LABS: Glucose,Whole Blood 226 mg/dL (70-110)
[2022-05-28 06:55] LABS: Glucose,Whole Blood 226 mg/dL (70-110)
[2022-05-28 07:03] LABS: Glucose,Whole Blood 248 mg/dL (70-110)
[2022-05-28 07:04] LABS: Basophils # (A) 0.1 k/uL (0-0.2); Basophils % (A) 1 %; Eosinophils # (A) 0.1 k/uL (0-0.7); Eosinophils % (A) 1 %; HCT 37.9 % (39.0-53.0); HGB 12.8 gm/dL (13.0-17.5); Lymphocytes # (A) 2.2 k/uL (1.0-4.8); Lymphocytes % (A) 17 %; MCH 31.6 pg (25.0-35.0); MCHC 33.8 g/dL (31.0-37.0); MCV 93.5 fL (80.0-100.0); Mean Platelet Volume 7.3; Monocytes # (A) 0.7 k/uL (0-1.0); Monocytes % (A) 5 %; Neutrophils # (A) 9.5 k/uL (1.3-7.7); Neutrophils % (A) 75 %; Platelet Count 323 k/uL (150-450); RBC 4.05 m/uL (4.30-5.90); RDW 12.4 % (11.5-15.5); WBC 12.8 k/uL (3.8-10.6)
[2022-05-28 07:17] LABS: African American GFR (CKD) >90 (>60 ml/min/1.73 sqM); Anion Gap 10 mmol/L; Blood Urea Nitrogen 13 mg/dL (9-20); Calcium 7.6 mg/dL (8.4-10.2); Carbon Dioxide 16 mmol/L (22-30); Chloride 107 mmol/L (98-107); Glucose 247 mg/dL (74-99); Magnesium 1.8 mg/dL (1.6-2.3); Non-African American GFR(CKD) >90 (>60 ml/min/1.73 sqM); Phosphorus 2.8 mg/dL (2.5-4.5); Potassium 4.4 mmol/L (3.5-5.1); Sodium 133 mmol/L (137-145)
[2022-05-28 08:12] LABS: Glucose,Whole Blood 241 mg/dL (70-110)
[2022-05-28] MEDS: MAGNESIUM SULFATE-D5W PMX 1 GM in DEXTROSE/WATER 1 100ML.BAG IVPB SCH ×2 (08:55→10:00)
[2022-05-28 09:39] LABS: Glucose,Whole Blood 268 mg/dL (70-110)
[2022-05-28 10:48] LABS: Glucose,Whole Blood 226 mg/dL (70-110)
[2022-05-28] MEDS: INSULIN REGULAR 100 UNIT in SODIUM CHLORIDE 0.9% 100 ML IV SCH (11:25)
[2022-05-28 11:50] LABS: African American GFR (CKD) >90 (>60 ml/min/1.73 sqM); Anion Gap 6 mmol/L; Blood Urea Nitrogen 11 mg/dL (9-20); Calcium 7.6 mg/dL (8.4-10.2); Carbon Dioxide 20 mmol/L (22-30); Chloride 104 mmol/L (98-107); Glucose 235 mg/dL (74-99); Non-African American GFR(CKD) >90 (>60 ml/min/1.73 sqM); Potassium 4.1 mmol/L (3.5-5.1); Sodium 130 mmol/L (137-145)
[2022-05-28 12:18] LABS: Glucose,Whole Blood 264 mg/dL (70-110)
[2022-05-28 12:58] LABS: Amphetamine Screen,Urine Not Detected (NotDetected); Barbiturate Screen,Urine Not Detected (NotDetected); Benzodiazepines Screen,Urine Not Detected (NotDetected); Cocaine Screen,Urine Not Detected (NotDetected); Methadone Screen, Urine Not Detected (NotDetected); Opiate Screen,Urine Not Detected (NotDetected); Oxycodone Screen, Urine Not Detected (NotDetected); Phencyclidine Screen,Urine Not Detected (NotDetected); Tricyclic Antidepressant,Urine Not Detected (NotDetected); Urn Cannabinoid Scrn Detected (NotDetected)
--- NOTE | 2022-05-28 13:29 | P.PN ---
Subjective Progress Note Date: 05/28/22 This is a 26-year-old male patient with a known history of type 1 diabetes mellitus with multiple episodes of diabetic ketoacidosis and questionable compliance. He is to be on Levemir insulin 25 units daily along with a NovoLog 10 units before meals in the outpatient setting. He presented here to the [facility] room today with nausea, vomiting, diarrhea. He was here yesterday and left AGAINST MEDICAL ADVICE. He had been seen in the emergency room 30 times in 2021. He is presently seen in the ER on the stretcher in room 18. He is laying on his right side. He has had ongoing issues with vomiting. His serum bicarb of 9. Anion gap 24. Glucose 467. Acetone positive. White count 9.0. Hemoglobin 14.5. Venous blood gas revealed a bicarb of 10, pCO2 23 and a pH of 7.28. Sodium 135. Potassium 5.0. Chloride 102. BUN 18. Creatinine 0.83. He is currently on insulin drip at 6 units an hour. He is receiving 2 L of fluid currently. He is maintaining O2 saturations in the 90s on room air. He is tachycardic at 124. Blood pressure stable. Afebrile. He is cachectic. BMI of 20 mg/m. The patient is seen today 05/28/2022 in follow-up in the intensive care unit. He is currently resting comfortably in bed. He is maintaining good O2 saturations in the 90s on room air. Less nausea. No vomiting. He is maintained on D5.45 normal saline with 20 of KCl at 150 MLS per hour. Continued on a insulin drip at 1.5 units per hour. Sodium 130. Potassium 4.1. Bicarb 20. BUN 11. Creatinine 0.53. Glucose 235. Urine drug screen was positive for marijuana. Objective - Vital Signs Vital signs: Vital Signs Temp 98.2 F 05/28/22 12:00 Pulse 85 05/28/22 13:00 Resp 16 05/28/22 13:00 BP 115/81 05/28/22 13:00 Pulse Ox 98 05/28/22 13:00 FiO2 Intake & Output 05/27/22 05/28/22 05/28/22 18:59 06:59 18:59 Intake Total 009.704 1590.264 1497.967 Output Total 375 650 950 Balance 81.849 2044.264 547.967 Weight 58.967 kg 70.5 kg Intake: IV 450 2650 1250 D5-0.45% NaCl with KCl 450 1800 1050 20Meq/l 1,000 ml @ 150 mls/hr IV .[id number] [facility] Rx# :[id number] Magnesium Sulfate-D5w Pmx 100 200 1 gm In Dextrose/Water 1 100ml.bag @ 100 mls/hr IVPB Q1H YAEL Rx#: [id number] Sodium Phosphate 10 mmol 750 In Sodium Chloride 0.9% 250 ml @ 125 mls/hr IVPB Q2H [facility] Rx#:[id number] Intake, IV Titration 6.849 44.264 7.967 Amount Insulin Regular 100 unit 6.849 44.264 7.967 In Sodium Chloride 0.9% 100 ml @ 0.1 UNITS/KG/HR 5.956 mls/hr IV .[id number] YAEL Rx#:[id number] Oral 240 Output: Urine 275 650 950 Emesis 100 Other: # Voids 0 0 # Bowel Movements 1 0 0 - Exam GENERAL EXAM: Alert, thin, 26-year-old male, on room air, comfortable in no apparent distress. HEAD: Normocephalic. EYES: Normal reaction of pupils, equal size. NOSE: Clear with pink turbinates. THROAT: No erythema or exudates. NECK: No masses, no JVD. CHEST: No chest wall deformity. LUNGS: Equal air entry with no crackles, wheeze, rhonchi or dullness. CVS: S1 and S2 normal with no audible murmur, regular rhythm. ABDOMEN: No hepatosplenomegaly, normal bowel sounds, no guarding or rigidity. SPINE: No scoliosis or deformity SKIN: No rashes CENTRAL NERVOUS SYSTEM: No focal deficits, tone is normal in all 4 extremities. EXTREMITIES: There is no peripheral edema. No clubbing, no cyanosis. Peripheral pulses are intact. - Labs CBC & Chem 7: 05/28/22 06:36 05/28/22 11:13 Labs: Abnormal Lab Results - Last 24 Hours (Table) 05/27/22 05/27/22 05/27/22 Range/Units 12:45 13:18 13:18 WBC (3.8-10.6) k/uL RBC (4.30-5.90) m/uL Hgb (13.0-17.5) gm/dL Hct (39.0-53.0) % Neutrophils # (1.3-7.7) k/uL APTT 19.7 L (22.0-30.0) sec VBG pH (7.31-7.41) VBG pCO2 (37-51) mmHg VBG HCO3 (24-28) mmol/L Sodium 135 L (137-145) mmol/L Chloride (98-107) mmol/L Carbon Dioxide 9 L* (22-30) mmol/L Creatinine (0.66-1.25) mg/dL Glucose 467 H (74-99) mg/dL POC Glucose (mg/dL) (70-110) mg/dL Plasma Lactic Acid Len (0.7-2.0) mmol/L Calcium (8.4-10.2) mg/dL Phosphorus (2.5-4.5) mg/dL AST 16 L (17-59) U/L TSH (0.465-4.680) mIU/L Urine Glucose (UA) 4+ H (Negative) Urine Ketones 4+ H (Negative) U Marijuana (THC) Screen (NotDetected) 05/27/22 05/27/22 05/27/22 Range/Units 13:18 13:18 15:33 WBC (3.8-10.6) k/uL RBC (4.30-5.90) m/uL Hgb (13.0-17.5) gm/dL Hct (39.0-53.0) % Neutrophils # (1.3-7.7) k/uL APTT (22.0-30.0) sec VBG pH 7.28 L (7.31-7.41) VBG pCO2 23 L (37-51) mmHg VBG HCO3 10 L (24-28) mmol/L Sodium (137-145) mmol/L Chloride (98-107) mmol/L Carbon Dioxide (22-30) mmol/L Creatinine (0.66-1.25) mg/dL Glucose (74-99) mg/dL POC Glucose (mg/dL) 284 H (70-110) mg/dL Plasma Lactic Acid Len 2.1 H* (0.7-2.0) mmol/L Calcium (8.4-10.2) mg/dL Phosphorus (2.5-4.5) mg/dL AST (17-59) U/L TSH (0.465-4.680) mIU/L Urine Glucose (UA) (Negative) Urine Ketones (Negative) U Marijuana (THC) Screen (NotDetected) 05/27/22 05/27/22 05/27/22 Range/Units 16:39 17:13 17:43 WBC (3.8-10.6) k/uL RBC (4.30-5.90) m/uL Hgb (13.0-17.5) gm/dL Hct (39.0-53.0) % Neutrophils # (1.3-7.7) k/uL APTT (22.0-30.0) sec VBG pH (7.31-7.41) VBG pCO2 (37-51) mmHg VBG HCO3 (24-28) mmol/L Sodium (137-145) mmol/L Chloride 111 H (98-107) mmol/L Carbon Dioxide 13 L (22-30) mmol/L Creatinine (0.66-1.25) mg/dL Glucose 227 H (74-99) mg/dL POC Glucose (mg/dL) 219 H 193 H (70-110) mg/dL Plasma Lactic Acid Len (0.7-2.0) mmol/L Calcium (8.4-10.2) mg/dL Phosphorus 1.3 L (2.5-4.5) mg/dL AST (17-59) U/L TSH (0.465-4.680) mIU/L Urine Glucose (UA) (Negative) Urine Ketones (Negative) U Marijuana (THC) Screen (NotDetected) 05/27/22 05/27/22 05/27/22 Range/Units 18:57 20:17 21:01 WBC (3.8-10.6) k/uL RBC (4.30-5.90) m/uL Hgb (13.0-17.5) gm/dL Hct (39.0-53.0) % Neutrophils # (1.3-7.7) k/uL APTT (22.0-30.0) sec VBG pH (7.31-7.41) VBG pCO2 (37-51) mmHg VBG HCO3 (24-28) mmol/L Sodium (137-145) mmol/L Chloride (98-107) mmol/L Carbon Dioxide (22-30) mmol/L Creatinine (0.66-1.25) mg/dL Glucose (74-99) mg/dL POC Glucose (mg/dL) 174 H 188 H 146 H (70-110) mg/dL Plasma Lactic Acid Len (0.7-2.0) mmol/L Calcium (8.4-10.2) mg/dL Phosphorus (2.5-4.5) mg/dL AST (17-59) U/L TSH (0.465-4.680) mIU/L Urine Glucose (UA) (Negative) Urine Ketones (Negative) U Marijuana (THC) Screen (NotDetected) 05/27/22 05/27/22 05/27/22 Range/Units 21:45 22:11 23:19 WBC (3.8-10.6) k/uL RBC (4.30-5.90) m/uL Hgb (13.0-17.5) gm/dL Hct (39.0-53.0) % Neutrophils # (1.3-7.7) k/uL APTT (22.0-30.0) sec VBG pH (7.31-7.41) VBG pCO2 (37-51) mmHg VBG HCO3 (24-28) mmol/L Sodium 136 L (137-145) mmol/L Chloride (98-107) mmol/L Carbon Dioxide 20 L (22-30) mmol/L Creatinine 0.65 L (0.66-1.25) mg/dL Glucose 148 H (74-99) mg/dL POC Glucose (mg/dL) 143 H 131 H (70-110) mg/dL Plasma Lactic Acid Len (0.7-2.0) mmol/L Calcium (8.4-10.2) mg/dL Phosphorus 1.8 L (2.5-4.5) mg/dL AST (17-59) U/L TSH (0.465-4.680) mIU/L Urine Glucose (UA) (Negative) Urine Ketones (Negative) U Marijuana (THC) Screen (NotDetected) 05/28/22 05/28/22 05/28/22 Range/Units 00:07 01:29 02:16 WBC (3.8-10.6) k/uL RBC (4.30-5.90) m/uL Hgb (13.0-17.5) gm/dL Hct (39.0-53.0) % Neutrophils # (1.3-7.7) k/uL APTT (22.0-30.0) sec VBG pH (7.31-7.41) VBG pCO2 (37-51) mmHg VBG HCO3 (24-28) mmol/L Sodium (137-145) mmol/L Chloride (98-107) mmol/L Carbon Dioxide (22-30) mmol/L Creatinine (0.66-1.25) mg/dL Glucose (74-99) mg/dL POC Glucose (mg/dL) 116 H 143 H 158 H (70-110) mg/dL Plasma Lactic Acid Len (0.7-2.0) mmol/L Calcium (8.4-10.2) mg/dL Phosphorus (2.5-4.5) mg/dL AST (17-59) U/L TSH (0.465-4.680) mIU/L Urine Glucose (UA) (Negative) Urine Ketones (Negative) U Marijuana (THC) Screen (NotDetected) 05/28/22 05/28/22 05/28/22 Range/Units 03:03 03:56 05:00 WBC (3.8-10.6) k/uL RBC (4.30-5.90) m/uL Hgb (13.0-17.5) gm/dL Hct (39.0-53.0) % Neutrophils # (1.3-7.7) k/uL APTT (22.0-30.0) sec VBG pH (7.31-7.41) VBG pCO2 (37-51) mmHg VBG HCO3 (24-28) mmol/L Sodium (137-145) mmol/L Chloride (98-107) mmol/L Carbon Dioxide (22-30) mmol/L Creatinine (0.66-1.25) mg/dL Glucose (74-99) mg/dL POC Glucose (mg/dL) 151 H 193 H 213 H (70-110) mg/dL Plasma Lactic Acid Len (0.7-2.0) mmol/L Calcium (8.4-10.2) mg/dL Phosphorus (2.5-4.5) mg/dL AST (17-59) U/L TSH (0.465-4.680) mIU/L Urine Glucose (UA) (Negative) Urine Ketones (Negative) U Marijuana (THC) Screen (NotDetected) 05/28/22 05/28/22 05/28/22 Range/Units 06:05 06:36 06:36 WBC 12.8 H (3.8-10.6) k/uL RBC 4.05 L (4.30-5.90) m/uL Hgb 12.8 L (13.0-17.5) gm/dL Hct 37.9 L (39.0-53.0) % Neutrophils # 9.5 H (1.3-7.7) k/uL APTT (22.0-30.0) sec VBG pH (7.31-7.41) VBG pCO2 (37-51) mmHg VBG HCO3 (24-28) mmol/L Sodium 133 L (137-145) mmol/L Chloride (98-107) mmol/L Carbon Dioxide 16 L (22-30) mmol/L Creatinine 0.58 L (0.66-1.25) mg/dL Glucose 247 H (74-99) mg/dL POC Glucose (mg/dL) 226 H (70-110) mg/dL Plasma Lactic Acid Len (0.7-2.0) mmol/L Calcium 7.6 L (8.4-10.2) mg/dL Phosphorus (2.5-4.5) mg/dL AST (17-59) U/L TSH (0.465-4.680) mIU/L Urine Glucose (UA) (Negative) Urine Ketones (Negative) U Marijuana (THC) Screen (NotDetected) 05/28/22 05/28/22 05/28/22 Range/Units 06:36 06:54 07:01 WBC (3.8-10.6) k/uL RBC (4.30-5.90) m/uL Hgb (13.0-17.5) gm/dL Hct (39.0-53.0) % Neutrophils # (1.3-7.7) k/uL APTT (22.0-30.0) sec VBG pH (7.31-7.41) VBG pCO2 (37-51) mmHg VBG HCO3 (24-28) mmol/L Sodium (137-145) mmol/L Chloride (98-107) mmol/L Carbon Dioxide (22-30) mmol/L Creatinine (0.66-1.25) mg/dL Glucose (74-99) mg/dL POC Glucose (mg/dL) 226 H 248 H (70-110) mg/dL Plasma Lactic Acid Len (0.7-2.0) mmol/L Calcium (8.4-10.2) mg/dL Phosphorus (2.5-4.5) mg/dL AST (17-59) U/L TSH 0.298 L (0.465-4.680) mIU/L Urine Glucose (UA) (Negative) Urine Ketones (Negative) U Marijuana (THC) Screen (NotDetected) 05/28/22 05/28/22 05/28/22 Range/Units 08:10 09:38 10:47 WBC (3.8-10.6) k/uL RBC (4.30-5.90) m/uL Hgb (13.0-17.5) gm/dL Hct (39.0-53.0) % Neutrophils # (1.3-7.7) k/uL APTT (22.0-30.0) sec VBG pH (7.31-7.41) VBG pCO2 (37-51) mmHg VBG HCO3 (24-28) mmol/L Sodium (137-145) mmol/L Chloride (98-107) mmol/L Carbon Dioxide (22-30) mmol/L Creatinine (0.66-1.25) mg/dL Glucose (74-99) mg/dL POC Glucose (mg/dL) 241 H 268 H 226 H (70-110) mg/dL Plasma Lactic Acid Len (0.7-2.0) mmol/L Calcium (8.4-10.2) mg/dL Phosphorus (2.5-4.5) mg/dL AST (17-59) U/L TSH (0.465-4.680) mIU/L Urine Glucose (UA) (Negative) Urine Ketones (Negative) U Marijuana (THC) Screen (NotDetected) 05/28/22 05/28/22 05/28/22 Range/Units 11:13 12:16 12:30 WBC (3.8-10.6) k/uL RBC (4.30-5.90) m/uL Hgb (13.0-17.5) gm/dL Hct (39.0-53.0) % Neutrophils # (1.3-7.7) k/uL APTT (22.0-30.0) sec VBG pH (7.31-7.41) VBG pCO2 (37-51) mmHg VBG HCO3 (24-28) mmol/L Sodium 130 L (137-145) mmol/L Chloride (98-107) mmol/L Carbon Dioxide 20 L (22-30) mmol/L Creatinine 0.53 L (0.66-1.25) mg/dL Glucose 235 H (74-99) mg/dL POC Glucose (mg/dL) 264 H (70-110) mg/dL Plasma Lactic Acid Len (0.7-2.0) mmol/L Calcium 7.6 L (8.4-10.2) mg/dL Phosphorus (2.5-4.5) mg/dL AST (17-59) U/L TSH (0.465-4.680) mIU/L Urine Glucose (UA) (Negative) Urine Ketones (Negative) U Marijuana (THC) Screen Detected H (NotDetected) Assessment and Plan Assessment: Acute diabetic ketoacidosis suspect secondary to medication noncompliance along with nausea, vomiting, diarrhea and the patient did leave AGAINST MEDICAL ADVICE 05/26/2022 from the emergency department. Anion gap metabolic acidosis secondary to above History of medication noncompliance, 30 visits to the emergency room in 2021 Diabetes mellitus, type I. Was to be on Levemir 25 units daily along with NovoLog scale 10 units 3 times a day with meals Diabetic neuropathy History of vaping History of previous drug overdose and suicide attempts History of major depression and generalized anxiety History of marijuana use Plan: The patient was seen and evaluated Medications and labs reviewed Continue insulin for now Transition to Levemir and NovoLog Continue fluid resuscitation We will continue to follow I have personally seen and examined the patient, performed the documentation and the assessment and plan as written. Number of minutes spent on the visit: 10.
[2022-05-28 13:31] LABS: Glucose,Whole Blood 260 mg/dL (70-110)
[2022-05-28] MEDS ORDERED: DEXTROSE 50% SYRINGE 50 ML IVP PRN ×2 (13:51)
[2022-05-28] MEDS ORDERED: INSULIN DETEMIR (LEVEMIR) 100 UNIT/ML SYR SQ ONE (14:30)
[2022-05-28 16:28] LABS: Glucose,Whole Blood 302 mg/dL (70-110)
[2022-05-28 16:41] VITALS: PULSE 93; TEMP 97.8
[2022-05-28] MEDS: INSULIN ASPART (NovoLOG) 100 UNIT/ML VIAL SQ SCH ×2 (16:42→20:27)
[2022-05-28] MEDS ORDERED: INSULIN ASPART (NovoLOG) 100 UNIT/ML VIAL SQ SCH (17:30)
[2022-05-28 19:52] LABS: African American GFR (CKD) >90 (>60 ml/min/1.73 sqM); Anion Gap 6 mmol/L; Blood Urea Nitrogen 7 mg/dL (9-20); Calcium 8.3 mg/dL (8.4-10.2); Carbon Dioxide 24 mmol/L (22-30); Chloride 104 mmol/L (98-107); Glucose 216 mg/dL (74-99); Non-African American GFR(CKD) >90 (>60 ml/min/1.73 sqM); Phosphorus 2.1 mg/dL (2.5-4.5); Potassium 4.4 mmol/L (3.5-5.1); Sodium 134 mmol/L (137-145)
[2022-05-28 20:01] LABS: Glucose,Whole Blood 186 mg/dL (70-110)
--- NOTE | 2022-05-28 21:27 | HP ---
HISTORY AND PHYSICAL CHIEF COMPLAINT: Diabetic ketoacidosis. HISTORY OF PRESENT ILLNESS: This is another admission for this 26-year-old type 1 diabetic, who is in and out of the hospital almost weekly now. He drinks, uses marijuana and then does not take insulin. He presented back to the emergency room in diabetic ketoacidosis. REVIEW OF SYSTEMS: He is quite lethargic. He has no focal neurologic complaints. He is nauseated and vomiting. Past medical history, family history, personal and social histories are all otherwise unremarkable or noncontributory or unchanged. PHYSICAL EXAMINATION: VITAL SIGNS: Blood pressure is 115/68 with a pulse of 98, respirations of 36, and he is afebrile. GENERAL: He appeared to be dehydrated, asthenic, and slightly lethargic. HEAD, EARS, EYES, NOSE, MOUTH AND THROAT: Normal except for dry mucous membranes. CHEST: Clear. CARDIAC: Demonstrates sinus tachycardia. ABDOMEN: Flat, soft, nontender without masses. Bowel sounds are normal. EXTREMITIES: Normal. NEUROLOGICAL: He is intact. IMPRESSION: 1. Diabetic ketoacidosis. 2. Noncompliant individual. 3. Uncontrolled type 1 insulin-dependent diabetes mellitus. 4. Alcoholism. 5. Major depression. PLAN: 1. Bedrest. 2. Diabetic ketoacidosis protocol. 3. He will likely sign out shortly, which is what he usually does. He has had psychiatric evaluations in the past, but to no avail. MMODL / IJN: [id number] /
--- NOTE | 2022-05-28 21:51 | PN ---
PROGRESS NOTE CHIEF COMPLAINT: DKA. HISTORY OF PRESENT ILLNESS: This gentleman is doing a little bit better. He is more awake and alert. Blood sugars are down around 250 now. PHYSICAL EXAMINATION: CHEST: Clear. CARDIAC: Normal. ABDOMEN: Flat and soft. IMPRESSION: Diabetic ketoacidosis. PLAN: Transition to basal bolus program and move to selective care off telemetry. MMSHANEL / IJN: [id number] /
[2022-05-28 22:57] VITALS: BP 117/84; RESP 7
[2022-05-29] MEDS ORDERED: INSULIN DETEMIR (LEVEMIR) 100 UNIT/ML SYR SQ SCH (07:00)
--- NOTE | 2022-06-03 22:41 | DS ---
DISCHARGE SUMMARY CHIEF COMPLAINT: Diabetic ketoacidosis. HISTORY OF PRESENT ILLNESS AND PHYSICAL EXAMINATION: Details of this man's history and physical can be found in the initial workup. LABORATORY STUDIES: While he was in the hospital, he had laboratory studies, details of which can be found in the laboratory section of his chart. COURSE IN THE HOSPITAL: After admission, he was placed on bedrest, started on intravenous fluids in ICU and placed on DKA protocol. He signed himself out against medical advice on the . FINAL DIAGNOSES: 1. Diabetic ketoacidosis. 2. Uncontrolled type 1 insulin-dependent diabetes mellitus. 3. Gastroparesis. 4. Depression. OPERATIONS: None. CONSULTATIONS: None. He is improved. MMODL / IJN: [id number] /
== END 2022-05-28 22:40 | disposition left against medical advice (07) | DRG 638 ==
LOC: EC 12:31 → 2SICU 15:08
PROVIDERS: ADMIT Family Medicine; ATTEND Family Medicine
DX: E10.10 Type 1 diabetes mellitus with ketoacidosis without coma (principal); R64 Cachexia; E10.40 Type 1 diabetes mellitus with diabetic neuropathy, unspecified; F10.20 Alcohol dependence, uncomplicated; F17.210 Nicotine dependence, cigarettes, uncomplicated; F32.A Depression, unspecified; F41.1 Generalized anxiety disorder; I10 Essential (primary) hypertension; J45.909 Unspecified asthma, uncomplicated; L30.9 Dermatitis, unspecified; R00.0 Tachycardia, unspecified; I25.10 Atherosclerotic heart disease of native coronary artery without angina pectoris; R19.7 Diarrhea, unspecified; R11.2 Nausea with vomiting, unspecified; Z68.24 Body mass index [BMI] 24.0-24.9, adult; Z53.29 Procedure and treatment not carried out because of patient's decision for other reasons; Z79.4 Long term (current) use of insulin; Z79.899 Other long term (current) drug therapy; Z91.199 Patient's noncompliance with other medical treatment and regimen due to unspecified reason; Z91.14 Patient's other noncompliance with medication regimen; Z91.51 Personal history of suicidal behavior
CPT/HCPCS: 36415; 74018; 80048; 80051; 80053; 80306; 81003; 82009; 82150; 82565; 82803; 82947; 83605; 83690; 83735; 84100; 84439; 84443; 84520; 85025; 85610; 85730; 93005; 96361; 96374; 96375; 99284; 99291; 99292

== ENCOUNTER 2022-05-31 11:21 | Observation (INO) | payer OTHER ==
[2022-05-31 11:36] VITALS: TEMP 98.3
[2022-05-31 11:37] LABS: Glucose,Whole Blood 393 mg/dL (70-110)
--- NOTE | 2022-05-31 12:28 | XR ---
EXAMINATION TYPE: XR chest 2V DATE OF EXAM: 05/31/2022 12:16 PM COMPARISON: Chest radiographs from 03/09/2022 TECHNIQUE: XR chest 2V Frontal and lateral views of the chest. CLINICAL INDICATION:Male, 26 years old with history of pain; FINDINGS: Lungs/Pleura: There is no evidence of pleural effusion, focal consolidation, or pneumothorax. Pulmonary vascularity: Unremarkable. Heart/mediastinum: Cardiomediastinal silhouette is unremarkable. Musculoskeletal: No acute osseous pathology. IMPRESSION: No acute cardiopulmonary disease/process. No significant change from prior exam.
--- NOTE | 2022-05-31 12:30 | XR ---
EXAMINATION TYPE: XR KUB DATE OF EXAM: 05/31/2022 Comparison: 05/24/2022 Clinical History: 26-year-old male with pain Technique: Supine view of the abdomen was obtained with 2 radiographs. Findings: Lung bases are clear. No evidence for free intraperitoneal air within limitations of a supi ne exam. Nonobstructive bowel gas pattern. Mild to moderate colonic stool burden. No suspicious calci fications clearly seen. No acute osseous adenopathy. Impression: 1. Nonobstructive bowel gas pattern. 2. Mild to moderate colonic stool burden.
[2022-05-31 12:38] LABS: Basophils # (A) 0.1 k/uL (0-0.2); Basophils % (A) 1 %; Eosinophils # (A) 0.2 k/uL (0-0.7); Eosinophils % (A) 2 %; HCT 42.6 % (39.0-53.0); HGB 14.6 gm/dL (13.0-17.5); Lymphocytes # (A) 1.4 k/uL (1.0-4.8); Lymphocytes % (A) 19 %; MCH 31.6 pg (25.0-35.0); MCHC 34.4 g/dL (31.0-37.0); MCV 91.9 fL (80.0-100.0); Mean Platelet Volume 7.3; Monocytes # (A) 0.3 k/uL (0-1.0); Monocytes % (A) 4 %; Neutrophils # (A) 5.6 k/uL (1.3-7.7); Neutrophils % (A) 73 %; Platelet Count 295 k/uL (150-450); RBC 4.63 m/uL (4.30-5.90); RDW 12.3 % (11.5-15.5); WBC 7.7 k/uL (3.8-10.6)
--- NOTE | 2022-05-31 12:40 | ED ---
Nausea/Vomiting/Diarrhea HPI - General Source: patient, RN notes reviewed Mode of arrival: ambulatory Limitations: no limitations <Cirilo Raymond - Last Filed: 05/31/22 12:38> <Yocasta Arana - Last Filed: 05/31/22 19:42> - General Chief complaint: Nausea/Vomiting/Diarrhea Stated complaint: Syncope Time Seen by Provider: 05/31/22 12:28 - History of Present Illness Initial comments: 26-year-old male presents emergency Department with chief complaint of abdominal pain, nausea vomiting hyperglycemic. Patient well-known emergency Department uncontrolled diabetic. Patient states pain is worse over the last few days. Patient was recently hospitalized. Patient denies any diarrhea no reported fever no chest pain currently. Patient denies any cough or cold-like symptoms. Denies flank pain no dysuria since pain is diffuse in his abdomen. (Cirilo Raymond) - Related Data Home Medications Medication Instructions Recorded Confirmed INSULIN ASPART (NovoLOG) [NovoLOG 10 unit SQ AC-TID 06/29/21 05/31/22 (formulary)] Gabapentin 600 mg PO TID 12/19/21 05/31/22 Insulin Detemir (Levemir) [Levemir] 25 unit SQ DAILY 04/11/22 05/31/22 Previous Rx's Medication Instructions Recorded Ondansetron Odt [Zofran Odt] 4 mg PO Q8HR PRN #10 tab 05/26/22 Allergies Allergy/AdvReac Type Severity Reaction Status Date / Time No Known Allergies Allergy Verified 05/31/22 14:12 Review of Systems ROS Other: All systems not noted in ROS Statement are negative. <Cirilo Raymond - Last Filed: 05/31/22 12:38> ROS Other: All systems not noted in ROS Statement are negative. <Yocasta Araan - Last Filed: 05/31/22 19:42> ROS Statement: Those systems with pertinent positive or pertinent negative responses have been documented in the HPI. Past Medical History Past Medical History: Asthma, Diabetes Mellitus, Neurologic Disorder, Skin Disorder Additional Past Medical History / Comment(s): IDDM type I, neuropathy bilateral feet, DKA, eczema. History of Any Multi-Drug Resistant Organisms: None Reported Past Surgical History: Adenoidectomy Additional Past Surgical History / Comment(s): 2002 Past Anesthesia/Blood Transfusion Reactions: No Reported Reaction Past Psychological History: Anxiety, Depression Smoking Status: Current every day smoker, Vaper Past Alcohol Use History: None Reported Past Drug Use History: None Reported - Past Family History Mother Family Medical History: CVA/TIA Additional Family Medical History / Comment(s): TIA Father Family Medical History: Hyperlipidemia, Hypertension Additional Family Medical History / Comment(s): . <Cirilo Raymond M - Last Filed: 05/31/22 12:38> General Exam Limitations: no limitations <MandiCirilo Moreno - Last Filed: 05/31/22 12:38> General appearance: alert, in no apparent distress Head exam: Present: atraumatic, normocephalic, normal inspection Eye exam: Present: normal appearance Neck exam: Present: normal inspection Respiratory exam: Present: normal lung sounds bilaterally. Absent: respiratory distress, wheezes, rales, rhonchi, stridor Cardiovascular Exam: Present: regular rate, normal rhythm, normal heart sounds. Absent: systolic murmur, diastolic murmur, rubs, gallop, clicks GI/Abdominal exam: Present: soft, tenderness (diffuse). Absent: distended, guarding, rebound, rigid Neurological exam: Present: alert, oriented X3, CN II-XII intact Psychiatric exam: Present: normal affect, normal mood Skin exam: Present: warm, dry, intact, normal color. Absent: rash <Yocasta Arana - Last Filed: 05/31/22 19:42> Course Vital Signs 05/31/22 05/31/22 11:34 17:29 Temperature 98.3 F Pulse Rate 99 96 Respiratory 20 Rate Blood Pressure 140/84 110/72 O2 Sat by Pulse 98 Oximetry Medical Decision Making - Lab Data Result diagrams: 05/31/22 11:37 05/31/22 15:58 <Yocasta Arana - Last Filed: 05/31/22 19:42> - Medical Decision Making Was pt. sent in by a medical professional or institution (, PA, BULK CLERK, urgent care, hospital, or halfway...) When possible be specific @ -[No] Did you speak to anyone other than the patient for history (EMS, parent, family, police, friend...)? What history was obtained from this source @ -[No] Did you review nursing and triage notes (agree or disagree)? Why? @ -[I reviewed and agree with nursing and triage notes] Were old charts reviewed (outside hosp., previous admission, EMS record, old EK G, old radiological studies, urgent care reports/EKG's, halfway records)? Report findings @ -[No old charts were reviewed] Differential Diagnosis (chest pain, altered mental status, abdominal pain women, abdominal pain men, vaginal bleeding, weakness, fever, dyspnea, syncope, headache, dizziness, GI bleed, back pain, seizure, CVA, palpatations, mental he alth)? @ -MDM Differential Abdominal Pain Men: DKA, hyperglycemia, Appendicitis, cholecystitis, diverticulosis, ischemic bowel, pancreatitis, hepatitis, UTI, gastroenteritis, AAA, incarcerated hernia, bowel obstruction, constipation, inflammatory bowel, hepatitis, peptic ulcer disease, splenic infarction, perforated viscus, testicular torsion... This is not meant to be an all- inclusive list EKG interpreted by me (3pts min.). @ -[As above] X-rays interpreted by me (1pt min.). @ -No acute process on KUB x-ray or chest x-ray CT interpreted by me (1pt min.). @ -[None done] U/S interpreted by me (1pt. min.). @ -[None done] What testing was considered but not performed or refused? (CT, X-rays, U/S, labs)? Why? @ -[None] What meds were considered but not given or refused? Why? @ -[None] Did you discuss the management of the patient with other professionals (professionals i.e. , PA, BULK CLERK, lab, RT, psych nurse, social services technician, supervisor heat treating, teacher, loan service officer, casework manager)? Give summary @ -[No] Was smoking cessation discussed for >3mins.? @ -[No] Was critical care preformed (if so, how long)? @ -[No] Were there social determinants of health that impacted care today? How? (Homelessness, low income, unemployed, alcoholism, drug addiction, transportation, low edu. Level, literacy, decrease access to med. care, long-term, rehab)? @ -[No] Was there de-escalation of care discussed even if they declined (Discuss DNR or withdrawal of care, Hospice)? DNR status @ -[No] What co-morbidities impacted this encounter? (DM, HTN, Smoking, COPD, CAD, Cancer, CVA, ARF, Chemo, Hep., AIDS, mental health diagnosis, sleep apnea, morbid obesity)? @ -Type 1 diabetes Was patient admitted / discharged? Hospital course, mention meds given and route, prescriptions, significant lab abnormalities, going to OR and other pertinent info. @ -Patient is a 26-year-old male history of type 1 diabetes presenting with chief complaint of nausea vomiting and diffuse abdominal pain. Patient was recently seen here for DKA. On physical examination heart and lungs are clear to auscultation, there is diffuse abdominal discomfort on palpation. Lab work shows anion gap 9. Potassium 4.8. Sodium 135. Glucose 420. Venous blood gas pH 7.41. Urine glucose 4+ urine ketones 1+. Acetone is positive. KUB and chest x-ray show no acute process. Patient will be admitted for DKA. He is g iven insulin and started on drip, also started on fluids. My attending spoke with Dr. Bravo who accepted admission. Patient is agreeable with this plan. I discussed this case with my attending Dr. Nj. Undiagnosed new problem with uncertain prognosis? @ -[No] Drug Therapy requiring intensive monitoring for toxicity (Heparin, Nitro, Insulin, Cardizem)? @ -Insulin Were any procedures done? @ -[No] Diagnosis/symptom? @ -DKA Acute, or Chronic, or Acute on Chronic? @ -Acute Uncomplicated (without systemic symptoms) or Complicated (systemic symptoms)? @ -Complicated Side effects of treatment? @ -[No] Exacerbation, Progression, or Severe Exacerbation? @ -[No] Poses a threat to life or bodily function? How? (Chest pain, USA, MT, pneumonia, PE, COPD, DKA, ARF, appy, cholecystitis, CVA, Diverticulitis, Homicidal, Suicidal, threat to staff... and all critical care pts) @ -Yes (Yocasta Arana) - Lab Data Lab Results 05/31/22 05/31/22 05/31/22 Range/Units 11:33 11:37 11:37 WBC 7.7 (3.8-10.6) k/uL RBC 4.63 (4.30-5.90) m/uL Hgb 14.6 (13.0-17.5) gm/dL Hct 42.6 (39.0-53.0) % MCV 91.9 (80.0-100.0) fL MCH 31.6 (25.0-35.0) pg MCHC 34.4 (31.0-37.0) g/dL RDW 12.3 (11.5-15.5) % Plt Count 295 (150-450) k/uL MPV 7.3 Neutrophils % 73 % Lymphocytes % 19 % Monocytes % 4 % Eosinophils % 2 % Basophils % 1 % Neutrophils # 5.6 (1.3-7.7) k/uL Lymphocytes # 1.4 (1.0-4.8) k/uL Monocytes # 0.3 (0-1.0) k/uL Eosinophils # 0.2 (0-0.7) k/uL Basophils # 0.1 (0-0.2) k/uL VBG pH (7.31-7.41) VBG pCO2 (37-51) mmHg VBG HCO3 (24-28) mmol/L Sodium 135 L (137-145) mmol/L Potassium 4.8 (3.5-5.1) mmol/L Chloride 95 L (98-107) mmol/L Carbon Dioxide 31 H (22-30) mmol/L Anion Gap 9 mmol/L BUN 12 (9-20) mg/dL Creatinine 0.61 L (0.66-1.25) mg/dL Est GFR (CKD-EPI)AfAm >90 (>60 ml/min/1.73 sqM) Est GFR (CKD-EPI)NonAf >90 (>60 ml/min/1.73 sqM) Glucose 420 H (74-99) mg/dL POC Glucose (mg/dL) 393 H (70-110) mg/dL POC Glu Auto Claims Adjuster ID Sanket, Marcus Plasma Lactic Acid Len (0.7-2.0) mmol/L Calcium 9.0 (8.4-10.2) mg/dL Magnesium (1.6-2.3) mg/dL Total Bilirubin 0.8 (0.2-1.3) mg/dL AST 17 (17-59) U/L ALT 17 (4-49) U/L Alkaline Phosphatase 83 (38-126) U/L Total Protein 7.3 (6.3-8.2) g/dL Albumin 4.7 (3.5-5.0) g/dL Amylase 75 (30-110) U/L Lipase 104 (23-300) U/L Urine Color Urine Appearance (Clear) Urine pH (5.0-8.0) Ur Specific [place] (1.001-1.035) Urine Protein (Negative) Urine Glucose (UA) (Negative) Urine Ketones (Negative) Urine Blood (Negative) Urine Nitrite (Negative) Urine Bilirubin (Negative) Urine Urobilinogen (<2.0) mg/dL Ur Leukocyte Esterase (Negative) Urine Opiates Screen (NotDetected) Ur Oxycodone Screen (NotDetected) Urine Methadone Screen (NotDetected) Ur Propoxyphene Screen (NotDetected) Ur Barbiturates Screen (NotDetected) U Tricyclic Antidepress (NotDetected) Ur Phencyclidine Scrn (NotDetected) Ur Amphetamines Screen (NotDetected) U Methamphetamines Scrn (NotDetected) U Benzodiazepines Scrn (NotDetected) Urine Cocaine Screen (NotDetected) U Marijuana (THC) Screen (NotDetected) Acetone, Qual (Negative) Influenza Type A (PCR) (Not Detectd) Influenza Type B (PCR) (Not Detectd) RSV (PCR) (Not Detectd) SARS-CoV-2 (PCR) (Not Detectd) 05/31/22 05/31/22 05/31/22 Range/Units 13:17 13:17 13:17 WBC (3.8-10.6) k/uL RBC (4.30-5.90) m/uL Hgb (13.0-17.5) gm/dL Hct (39.0-53.0) % MCV (80.0-100.0) fL MCH (25.0-35.0) pg MCHC (31.0-37.0) g/dL RDW (11.5-15.5) % Plt Count (150-450) k/uL MPV Neutrophils % % Lymphocytes % % Monocytes % % Eosinophils % % Basophils % % Neutrophils # (1.3-7.7) k/uL Lymphocytes # (1.0-4.8) k/uL Monocytes # (0-1.0) k/uL Eosinophils # (0-0.7) k/uL Basophils # (0-0.2) k/uL VBG pH 7.41 (7.31-7.41) VBG pCO2 47 (37-51) mmHg VBG HCO3 29 H (24-28) mmol/L Sodium (137-145) mmol/L Potassium (3.5-5.1) mmol/L Chloride (98-107) mmol/L Carbon Dioxide (22-30) mmol/L Anion Gap mmol/L BUN (9-20) mg/dL Creatinine (0.66-1.25) mg/dL Est GFR (CKD-EPI)AfAm (>60 ml/min/1.73 sqM) Est GFR (CKD-EPI)NonAf (>60 ml/min/1.73 sqM) Glucose (74-99) mg/dL POC Glucose (mg/dL) (70-110) mg/dL POC Glu Auto Claims Adjuster ID Plasma Lactic Acid Len (0.7-2.0) mmol/L Calcium (8.4-10.2) mg/dL Magnesium (1.6-2.3) mg/dL Total Bilirubin (0.2-1.3) mg/dL AST (17-59) U/L ALT (4-49) U/L Alkaline Phosphatase (38-126) U/L Total Protein (6.3-8.2) g/dL Albumin (3.5-5.0) g/dL Amylase (30-110) U/L Lipase (23-300) U/L Urine Color Colorless Urine Appearance Clear (Clear) Urine pH 8.5 H (5.0-8.0) Ur Specific [place] 1.028 (1.001-1.035) Urine Protein Negative (Negative) Urine Glucose (UA) 4+ H (Negative) Urine Ketones 1+ H (Negative) Urine Blood Negative (Negative) Urine Nitrite Negative (Negative) Urine Bilirubin Negative (Negative) Urine Urobilinogen <2.0 (<2.0) mg/dL Ur Leukocyte Esterase Negative (Negative) Urine Opiates Screen Not Detected (NotDetected) Ur Oxycodone Screen Not Detected (NotDetected) Urine Methadone Screen Not Detected (NotDetected) Ur Propoxyphene Screen Not Detected (NotDetected) Ur Barbiturates Screen Not Detected (NotDetected) U Tricyclic Antidepress Not Detected (NotDetected) Ur Phencyclidine Scrn Not Detected (NotDetected) Ur Amphetamines Screen Not Detected (NotDetected) U Methamphetamines Scrn Not Detected (NotDetected) U Benzodiazepines Scrn Not Detected (NotDetected) Urine Cocaine Screen Not Detected (NotDetected) U Marijuana (THC) Screen Detected H (NotDetected) Acetone, Qual (Negative) Influenza Type A (PCR) (Not Detectd) Influenza Type B (PCR) (Not Detectd) RSV (PCR) (Not Detectd) SARS-CoV-2 (PCR) (Not Detectd) 05/31/22 05/31/22 05/31/22 Range/Units 13:51 14:08 14:08 WBC (3.8-10.6) k/uL RBC (4.30-5.90) m/uL Hgb (13.0-17.5) gm/dL Hct (39.0-53.0) % MCV (80.0-100.0) fL MCH (25.0-35.0) pg MCHC (31.0-37.0) g/dL RDW (11.5-15.5) % Plt Count (150-450) k/uL MPV Neutrophils % % Lymphocytes % % Monocytes % % Eosinophils % % Basophils % % Neutrophils # (1.3-7.7) k/uL Lymphocytes # (1.0-4.8) k/uL Monocytes # (0-1.0) k/uL Eosinophils # (0-0.7) k/uL Basophils # (0-0.2) k/uL VBG pH (7.31-7.41) VBG pCO2 (37-51) mmHg VBG HCO3 (24-28) mmol/L Sodium (137-145) mmol/L Potassium (3.5-5.1) mmol/L Chloride (98-107) mmol/L Carbon Dioxide (22-30) mmol/L Anion Gap mmol/L BUN (9-20) mg/dL Creatinine (0.66-1.25) mg/dL Est GFR (CKD-EPI)AfAm (>60 ml/min/1.73 sqM) Est GFR (CKD-EPI)NonAf (>60 ml/min/1.73 sqM) Glucose (74-99) mg/dL POC Glucose (mg/dL) 415 H (70-110) mg/dL POC Glu Auto Claims Adjuster ID Aditi Sharma Plasma Lactic Acid Len 0.9 (0.7-2.0) mmol/L Calcium (8.4-10.2) mg/dL Magnesium 1.9 (1.6-2.3) mg/dL Total Bilirubin (0.2-1.3) mg/dL AST (17-59) U/L ALT (4-49) U/L Alkaline Phosphatase (38-126) U/L Total Protein (6.3-8.2) g/dL Albumin (3.5-5.0) g/dL Amylase (30-110) U/L Lipase (23-300) U/L Urine Color Urine Appearance (Clear) Urine pH (5.0-8.0) Ur Specific [place] (1.001-1.035) Urine Protein (Negative) Urine Glucose (UA) (Negative) Urine Ketones (Negative) Urine Blood (Negative) Urine Nitrite (Negative) Urine Bilirubin (Negative) Urine Urobilinogen (<2.0) mg/dL Ur Leukocyte Esterase (Negative) Urine Opiates Screen (NotDetected) Ur Oxycodone Screen (NotDetected) Urine Methadone Screen (NotDetected) Ur Propoxyphene Screen (NotDetected) Ur Barbiturates Screen (NotDetected) U Tricyclic Antidepress (NotDetected) Ur Phencyclidine Scrn (NotDetected) Ur Amphetamines Screen (NotDetected) U Methamphetamines Scrn (NotDetected) U Benzodiazepines Scrn (NotDetected) Urine Cocaine Screen (NotDetected) U Marijuana (THC) Screen (NotDetected) Acetone, Qual (Negative) Influenza Type A (PCR) (Not Detectd) Influenza Type B (PCR) (Not Detectd) RSV (PCR) (Not Detectd) SARS-CoV-2 (PCR) (Not Detectd) 05/31/22 05/31/22 Range/Units 14:11 14:11 WBC (3.8-10.6) k/uL RBC (4.30-5.90) m/uL Hgb (13.0-17.5) gm/dL Hct (39.0-53.0) % MCV (80.0-100.0) fL MCH (25.0-35.0) pg MCHC (31.0-37.0) g/dL RDW (11.5-15.5) % Plt Count (150-450) k/uL MPV Neutrophils % % Lymphocytes % % Monocytes % % Eosinophils % % Basophils % % Neutrophils # (1.3-7.7) k/uL Lymphocytes # (1.0-4.8) k/uL Monocytes # (0-1.0) k/uL Eosinophils # (0-0.7) k/uL Basophils # (0-0.2) k/uL VBG pH (7.31-7.41) VBG pCO2 (37-51) mmHg VBG HCO3 (24-28) mmol/L Sodium (137-145) mmol/L Potassium (3.5-5.1) mmol/L Chloride (98-107) mmol/L Carbon Dioxide (22-30) mmol/L Anion Gap mmol/L BUN (9-20) mg/dL Creatinine (0.66-1.25) mg/dL Est GFR (CKD-EPI)AfAm (>60 ml/min/1.73 sqM) Est GFR (CKD-EPI)NonAf (>60 ml/min/1.73 sqM) Glucose (74-99) mg/dL POC Glucose (mg/dL) (70-110) mg/dL POC Glu Auto Claims Adjuster ID Plasma Lactic Acid Len (0.7-2.0) mmol/L Calcium (8.4-10.2) mg/dL Magnesium (1.6-2.3) mg/dL Total Bilirubin (0.2-1.3) mg/dL AST (17-59) U/L ALT (4-49) U/L Alkaline Phosphatase (38-126) U/L Total Protein (6.3-8.2) g/dL Albumin (3.5-5.0) g/dL Amylase (30-110) U/L Lipase (23-300) U/L Urine Color Urine Appearance (Clear) Urine pH (5.0-8.0) Ur Specific [place] (1.001-1.035) Urine Protein (Negative) Urine Glucose (UA) (Negative) Urine Ketones (Negative) Urine Blood (Negative) Urine Nitrite (Negative) Urine Bilirubin (Negative) Urine Urobilinogen (<2.0) mg/dL Ur Leukocyte Esterase (Negative) Urine Opiates Screen (NotDetected) Ur Oxycodone Screen (NotDetected) Urine Methadone Screen (NotDetected) Ur Propoxyphene Screen (NotDetected) Ur Barbiturates Screen (NotDetected) U Tricyclic Antidepress (NotDetected) Ur Phencyclidine Scrn (NotDetected) Ur Amphetamines Screen (NotDetected) U Methamphetamines Scrn (NotDetected) U Benzodiazepines Scrn (NotDetected) Urine Cocaine Screen (NotDetected) U Marijuana (THC) Screen (NotDetected) Acetone, Qual Positive (Negative) Influenza Type A (PCR) Not Detected (Not Detectd) Influenza Type B (PCR) Not Detected (Not Detectd) RSV (PCR) Not Detected (Not Detectd) SARS-CoV-2 (PCR) Not Detected (Not Detectd) Disposition <Cirilo Raymond - Last Filed: 05/31/22 12:38> Time of Disposition: 14:58 Decision to Admit Reason: Admit from EC Decision Date: 05/31/22 Decision Time: 14:58 <Yocasta Arana - Last Filed: 05/31/22 19:42> Clinical Impression: DKA (diabetic ketoacidosis) Disposition: ADMITTED IP TO THIS [facility] Condition: Fair
[2022-05-31 13:09] LABS: ALT 17 U/L (4-49); AST 17 U/L (17-59); African American GFR (CKD) >90 (>60 ml/min/1.73 sqM); Albumin 4.7 g/dL (3.5-5.0); Alkaline Phosphatase 83 U/L (38-126); Amylase 75 U/L (30-110); Anion Gap 9 mmol/L; Blood Urea Nitrogen 12 mg/dL (9-20); Carbon Dioxide 31 mmol/L (22-30); Chloride 95 mmol/L (98-107); Glucose 420 mg/dL (74-99); Lipase 104 U/L (23-300); Non-African American GFR(CKD) >90 (>60 ml/min/1.73 sqM); Potassium 4.8 mmol/L (3.5-5.1); Sodium 135 mmol/L (137-145); Total Bilirubin 0.8 mg/dL (0.2-1.3); Total Protein 7.3 g/dL (6.3-8.2)
[2022-05-31] MEDS ORDERED: SODIUM CHLORIDE 0.9% 1,000 ML IV ONE (13:37)
[2022-05-31 13:50] LABS: Appearance,Urine Clear (Clear); Bilirubin,Urine Negative (Negative); Blood,Urine Negative (Negative); Color,Urine Colorless; Glucose,Urine (UA) 4+ (Negative); Ketones,Urine 1+ (Negative); Leukocyte Esterase,Urine Negative (Negative); Nitrite,Urine Negative (Negative); PH, Urine 8.5 (5.0-8.0); Protein,Urine Negative (Negative); Specific Gravity,Urine 1.028 (1.001-1.035); Urobilinogen,Urine <2.0 mg/dL (<2.0); VBG PH 7.41 (7.31-7.41)
[2022-05-31] MEDS ORDERED: INSULIN REGULAR 100 UNIT/ML VIAL (IM/SQ) SQ ONE (13:52)
[2022-05-31 13:53] LABS: Glucose,Whole Blood 415 mg/dL (70-110)
[2022-05-31 14:08] LABS: Amphetamine Screen,Urine Not Detected (NotDetected); Barbiturate Screen,Urine Not Detected (NotDetected); Benzodiazepines Screen,Urine Not Detected (NotDetected); Cocaine Screen,Urine Not Detected (NotDetected); Methadone Screen, Urine Not Detected (NotDetected); Opiate Screen,Urine Not Detected (NotDetected); Oxycodone Screen, Urine Not Detected (NotDetected); Phencyclidine Screen,Urine Not Detected (NotDetected); Tricyclic Antidepressant,Urine Not Detected (NotDetected); Urn Cannabinoid Scrn Detected (NotDetected)
[2022-05-31] MEDS ORDERED: INSULIN REGULAR 100 UNIT/ML VIAL (IV) IV ONE (14:14)
[2022-05-31] MEDS: INSULIN REGULAR 100 UNIT in SODIUM CHLORIDE 0.9% 100 ML IV SCH ×2 (15:41→15:52)
[2022-05-31 15:42] LABS: Glucose,Whole Blood 225 mg/dL (70-110)
[2022-05-31] MEDS: SODIUM CHLORIDE 0.9% 1,000 ML IV SCH ×2 (15:43→22:52)
[2022-05-31 16:43] LABS: African American GFR (CKD) >90 (>60 ml/min/1.73 sqM); Anion Gap 7 mmol/L; Blood Urea Nitrogen 13 mg/dL (9-20); Carbon Dioxide 29 mmol/L (22-30); Chloride 101 mmol/L (98-107); Glucose 246 mg/dL (74-99); Non-African American GFR(CKD) >90 (>60 ml/min/1.73 sqM); Phosphorus 3.1 mg/dL (2.5-4.5); Potassium 3.8 mmol/L (3.5-5.1); Sodium 137 mmol/L (137-145)
[2022-05-31 17:36] LABS: Glucose,Whole Blood 317 mg/dL (70-110)
[2022-05-31] MEDS ORDERED: DEXTROSE 50% SYRINGE 50 ML IVP PRN ×2 (18:31)
[2022-05-31 21:02] LABS: African American GFR (CKD) >90 (>60 ml/min/1.73 sqM); Anion Gap 12 mmol/L; Blood Urea Nitrogen 14 mg/dL (9-20); Carbon Dioxide 24 mmol/L (22-30); Chloride 100 mmol/L (98-107); Glucose 318 mg/dL (74-99); Non-African American GFR(CKD) >90 (>60 ml/min/1.73 sqM); Potassium 4.3 mmol/L (3.5-5.1); Sodium 136 mmol/L (137-145)
[2022-05-31 21:49] VITALS: RESP 16
[2022-05-31] MEDS: INSULIN ASPART (NovoLOG) 100 UNIT/ML VIAL SQ SCH (22:38)
[2022-05-31] MEDS: GABAPENTIN 300 MG CAP PO SCH (22:51)
--- NOTE | 2022-06-01 00:31 | P.HPIM ---
History of Present Illness H&P Date: 05/31/22 Chief Complaint: Nausea vomiting and abdominal pain Patient is a 26-year-old male with a known history of diabetes type 1, diabetic peripheral neuropathy, eczema, asthma, anxiety/depression, currently everyday smoker/vaping and other medical problems presents to ER with complaints of nausea vomiting and elevated blood sugars. Patient otherwise denied any diarrhea. No complaints of chest pain or shortness of breath. No cough or sputum production. No dysuria or hematuria. No flank pain. Abdominal pain is diffuse.. Patient was hypoglycemic on admission blood sugar greater than 400 Other laboratory data showed WBC 7.7 hemoglobin 14.6 and platelets 295 ABG showed pH 7.41 PCO2 47 bicarb is 29 Sodium 135 potassium 4.8 chloride 95 bicarb is 31 BUN 12 and creatinine 0.61 and blood sugar at 420 Urinalysis showed pH 8.54+ glucose 1+ ketones and acetone positive. Urinalysis positive for marijuana Influenza type B A, B and RSV and SARS-CoV-2 not detected. Review of Systems Constitutional: Patient denies any fever or chills . Patient does have generalized weakness. Abdomen: Patient complains of nausea vomiting abdominal pain. No diarrhea Cardiovascular: Patient denies any chest pain or short of breath no palpitations. Respiratory: patient denied any cough . no sputum production. No shortness of breath Neurologic: Patient denied any numbness or tingling headache. Musculoskeletal: Patient denies any complaints of joint swelling or deformity. Skin: Negative Psychiatric: Negative Endocrine: No heat or cold intolerance. No recent weight gain. Genitourinary: No dysuria or hematuria. All other 14 point ROS negative except the above Past Medical History Past Medical History: Asthma, Diabetes Mellitus, Neurologic Disorder, Skin Disorder Additional Past Medical History / Comment(s): IDDM type I, neuropathy bilateral feet, DKA, eczema. History of Any Multi-Drug Resistant Organisms: None Reported Past Surgical History: Adenoidectomy Additional Past Surgical History / Comment(s): 2002 Past Anesthesia/Blood Transfusion Reactions: No Reported Reaction Past Psychological History: Anxiety, Depression Smoking Status: Current every day smoker, Vaper Past Alcohol Use History: None Reported Past Drug Use History: None Reported - Past Family History Mother Family Medical History: CVA/TIA Additional Family Medical History / Comment(s): TIA Father Family Medical History: Hyperlipidemia, Hypertension Additional Family Medical History / Comment(s): . Medications and Allergies Home Medications Medication Instructions Recorded Confirmed Type INSULIN ASPART (NovoLOG) [NovoLOG 10 unit SQ AC-TID 06/29/21 05/31/22 History (formulary)] Gabapentin 600 mg PO TID 12/19/21 05/31/22 History Insulin Detemir (Levemir) [Levemir] 25 unit SQ DAILY 04/11/22 05/31/22 History Ondansetron Odt [Zofran Odt] 4 mg PO Q8HR PRN #10 tab 05/26/22 05/31/22 Rx Allergies Allergy/AdvReac Type Severity Reaction Status Date / Time No Known Allergies Allergy Verified 05/31/22 14:12 Physical Exam Vitals: Vital Signs Temp Pulse Resp BP Pulse Ox 05/31/22 17:29 96 110/72 05/31/22 11:34 98.3 F 99 20 140/84 98 Intake and Output 05/31/22 05/31/22 05/31/22 06:59 14:59 22:59 Other: Weight 72.575 kg PHYSICAL EXAMINATION: Patient is lying in the bed comfortably, no acute distress, awake alert and oriented.. Patient is lethargic and drowsy. HEENT: Normocephalic. Neck is supple. Pupils reactive. Nostrils clear. Oral cavity is moist. Neck reveals no JVD, carotid bruits, or thyromegaly. CHEST EXAMINATION: Trachea is central. Symmetrical expansion. Lung brady clear to auscultation and percussion. Bibasilar diminished sounds. CARDIAC: Normal S1, S2 with no gallops. No murmurs ABDOMEN: Soft. Bowel sounds present. Nontender. No guarding or rigidity. R. No organomegaly. No abdominal bruits. Extremities: reveal no edema. No clubbing or cyanosis Neurologically awake, alert, oriented x2-3 with well-coordinated movements. No focal deficits noted Skin: No rash or skin lesions. Psychiatric: Coperative. Could not be assessed completely. Musculoskeletal: No joint swelling or deformity. Normal range of motion. Results CBC & Chem 7: 05/31/22 11:37 05/31/22 20:24 Labs: Abnormal Lab Results - Last 24 Hours (Table) 05/31/22 05/31/22 05/31/22 Range/Units 11:33 11:37 13:17 VBG HCO3 (24-28) mmol/L Sodium 135 L (137-145) mmol/L Chloride 95 L (98-107) mmol/L Carbon Dioxide 31 H (22-30) mmol/L Creatinine 0.61 L (0.66-1.25) mg/dL Glucose 420 H (74-99) mg/dL POC Glucose (mg/dL) 393 H (70-110) mg/dL Urine pH 8.5 H (5.0-8.0) Urine Glucose (UA) 4+ H (Negative) Urine Ketones 1+ H (Negative) U Marijuana (THC) Screen (NotDetected) 05/31/22 05/31/22 05/31/22 Range/Units 13:17 13:17 13:51 VBG HCO3 29 H (24-28) mmol/L Sodium (137-145) mmol/L Chloride (98-107) mmol/L Carbon Dioxide (22-30) mmol/L Creatinine (0.66-1.25) mg/dL Glucose (74-99) mg/dL POC Glucose (mg/dL) 415 H (70-110) mg/dL Urine pH (5.0-8.0) Urine Glucose (UA) (Negative) Urine Ketones (Negative) U Marijuana (THC) Screen Detected H (NotDetected) 05/31/22 05/31/22 05/31/22 Range/Units 15:41 15:58 17:33 VBG HCO3 (24-28) mmol/L Sodium (137-145) mmol/L Chloride (98-107) mmol/L Carbon Dioxide (22-30) mmol/L Creatinine 0.53 L (0.66-1.25) mg/dL Glucose 246 H (74-99) mg/dL POC Glucose (mg/dL) 225 H 317 H (70-110) mg/dL Urine pH (5.0-8.0) Urine Glucose (UA) (Negative) Urine Ketones (Negative) U Marijuana (THC) Screen (NotDetected) 05/31/22 Range/Units 20:24 VBG HCO3 (24-28) mmol/L Sodium 136 L (137-145) mmol/L Chloride (98-107) mmol/L Carbon Dioxide (22-30) mmol/L Creatinine 0.56 L (0.66-1.25) mg/dL Glucose 318 H (74-99) mg/dL POC Glucose (mg/dL) (70-110) mg/dL Urine pH (5.0-8.0) Urine Glucose (UA) (Negative) Urine Ketones (Negative) U Marijuana (THC) Screen (NotDetected) Thrombosis Risk Factor Assmnt - DVT/VTE Prophylaxis DVT/VTE Prophylaxis: Pharmacologic Prophylaxis ordered Assessment and Plan Assessment: Acute diabetic ketoacidosis Hyperglycemia with uncontrolled diabetes type 1 Hypovolemic hyponatremia Abdominal pain secondary to DKA. Prior history of admissions due to DKA Diabetic peripheral neuropathy Asthma not in exacerbation Anxiety/depression Currently only smoking/vaping UDS positive for marijuana DVT prophylaxis with heparin subcu Plan: Patient was started on insulin drip and monitor electrolytes every 4 hourly. P atient will be continued on On IV hydration and symptomatic management for nausea and vomiting. We will follow closely. GI and DVT prophylaxis. Time with Patient: Greater than 30
[2022-06-01 00:46] LABS: Glucose,Whole Blood 207 mg/dL (70-110)
[2022-06-01] MEDS: SODIUM CHLORIDE 0.9% 1,000 ML IV SCH ×3 (02:56→12:22)
[2022-06-01 06:57] LABS: Glucose,Whole Blood 257 mg/dL (70-110)
[2022-06-01] MEDS ORDERED: INSULIN DETEMIR (LEVEMIR) 100 UNIT/ML SYR SQ SCH (07:00)
[2022-06-01] MEDS ORDERED: PANTOPRAZOLE 40 MG TABLET PO SCH (07:30)
[2022-06-01] MEDS ORDERED: HEPARIN SODIUM,PORCINE/PF 5,000 UNIT/0.5 ML SYRINGE SQ SCH (08:00)
[2022-06-01] MEDS: INSULIN ASPART (NovoLOG) 100 UNIT/ML VIAL SQ SCH ×4 (08:16→12:20)
[2022-06-01] MEDS: GABAPENTIN 300 MG CAP PO SCH (08:17)
[2022-06-01 08:33] LABS: Basophils # (A) 0.1 k/uL (0-0.2); Basophils % (A) 1 %; Eosinophils # (A) 0.3 k/uL (0-0.7); Eosinophils % (A) 3 %; HCT 42.6 % (39.0-53.0); HGB 14.1 gm/dL (13.0-17.5); Lymphocytes # (A) 3.2 k/uL (1.0-4.8); Lymphocytes % (A) 37 %; MCH 31.5 pg (25.0-35.0); MCHC 33.1 g/dL (31.0-37.0); MCV 95.1 fL (80.0-100.0); Mean Platelet Volume 7.3; Monocytes # (A) 0.4 k/uL (0-1.0); Monocytes % (A) 5 %; Neutrophils # (A) 4.5 k/uL (1.3-7.7); Neutrophils % (A) 53 %; Platelet Count 264 k/uL (150-450); RBC 4.48 m/uL (4.30-5.90); RDW 12.2 % (11.5-15.5); WBC 8.6 k/uL (3.8-10.6)
[2022-06-01 08:55] LABS: ALT 16 U/L (4-49); AST 18 U/L (17-59); African American GFR (CKD) >90 (>60 ml/min/1.73 sqM); Albumin 4.2 g/dL (3.5-5.0); Alkaline Phosphatase 78 U/L (38-126); Anion Gap 14 mmol/L; Blood Urea Nitrogen 15 mg/dL (9-20); Calcium 8.4 mg/dL (8.4-10.2); Carbon Dioxide 21 mmol/L (22-30); Chloride 98 mmol/L (98-107); Glucose 343 mg/dL (74-99); Non-African American GFR(CKD) >90 (>60 ml/min/1.73 sqM); Potassium 4.7 mmol/L (3.5-5.1); Sodium 133 mmol/L (137-145); Total Bilirubin 1.1 mg/dL (0.2-1.3); Total Protein 6.4 g/dL (6.3-8.2)
[2022-06-01 11:42] LABS: Glucose,Whole Blood 211 mg/dL (70-110)
[2022-06-01 12:23] VITALS: BP 115/80; PULSE 90
== END 2022-06-01 14:53 | disposition left against medical advice (07) ==
LOC: EC 11:21 → 4SSUR 15:09 → 1SOBS 16:21 → 3SCARD 16:53
PROVIDERS: ADMIT Internal Medicine; ATTEND Internal Medicine
DX: E10.10 Type 1 diabetes mellitus with ketoacidosis without coma (principal); E86.1 Hypovolemia; E87.1 Hypo-osmolality and hyponatremia; E10.42 Type 1 diabetes mellitus with diabetic polyneuropathy; F32.A Depression, unspecified; F41.9 Anxiety disorder, unspecified; L30.9 Dermatitis, unspecified; J45.909 Unspecified asthma, uncomplicated; F17.290 Nicotine dependence, other tobacco product, uncomplicated; Z53.29 Procedure and treatment not carried out because of patient's decision for other reasons; Z20.822 Contact with and (suspected) exposure to COVID-19; Z79.4 Long term (current) use of insulin; Z79.899 Other long term (current) drug therapy; Z98.890 Other specified postprocedural states; Z82.3 Family history of stroke; Z82.49 Family history of ischemic heart disease and other diseases of the circulatory system; Z83.438 Family history of other disorder of lipoprotein metabolism and other lipidemia
CPT/HCPCS: 96360; 96361 ×2; 99285; 36415; 80051; 80053 ×2; 82150; 82565; 82803; 82009; 83605; 83690; 83735; 84100; 82947; 84520; 85025 ×2; 81003; 80306; 87636; 71046; 74018; G0378 ×4

== ENCOUNTER 2022-06-04 10:23 | Inpatient (IN) | payer OTHER ==
[2022-06-04 10:38] LABS: Glucose,Whole Blood >600 mg/dL (70-110)
[2022-06-04] MEDS ORDERED: INSULIN REGULAR BOLUS (FROM DRIP BAG) IV ONE (10:47)
[2022-06-04] MEDS ORDERED: Potassium Replacement Protocol 1 EACH MISC MISCELLANE PRN (10:47)
[2022-06-04] MEDS ORDERED: Magnesium Replacement Protocol 1 EACH MISC MISCELLANE PRN (10:47)
[2022-06-04] MEDS ORDERED: SODIUM CHLORIDE 0.9% 1,000 ML IV STA (10:51)
[2022-06-04] MEDS ORDERED: INSULIN REGULAR 100 UNIT in SODIUM CHLORIDE 0.9% 100 ML IV SCH (11:00)
[2022-06-04] MEDS: SODIUM CHLORIDE 0.9% 1,000 ML IV SCH ×3 (11:26→19:01)
--- NOTE | 2022-06-04 11:27 | ED ---
General Adult HPI - General Chief complaint: Nausea/Vomiting/Diarrhea Stated complaint: hyperglycemia Time Seen by Provider: 06/04/22 10:24 Source: patient Mode of arrival: EMS Limitations: no limitations - History of Present Illness Initial comments: Dictation was produced using [employer] dictation software. please excuse any grammatical, word or spelling errors. Chief Complaint: 26-year-old male insulin-dependent diabetic presents emergency department for nausea vomiting History of Present Illness: Is 26-year-old male who is a poor historian. Patient is well-known to emergency department for DKA. Patient is here most once weekly for DKA episodes. Patient states that he has nausea and vomiting. Brought in by EMS from home. EMS was called for chief complaint of nausea and vomiting. Patient states she's been compliant with his insulin The ROS documented in this emergency department record has been reviewed and confirmed by me. Those systems with pertinent positive or negative responses have been documented in the HPI. All other systems are other negative and/or noncontributory. PHYSICAL EXAM: General Impression: Alert and oriented, lethargic, vomiting, smells of acetone HEENT: Normocephalic atraumatic, extra-ocular movements intact, pupils equal and reactive to light bilaterally, dry mucous membranes Cardiovascular: Heart regular rate and rhythm Chest: Able to complete full sentences, no retractions, no tachypnea Abdomen: abdomen soft, non-tender, non-distended, no organomegaly Musculoskeletal: Pulses present and equal in all extremities, no peripheral edema Motor: no focal deficits noted Neurological: CN II-XII grossly intact, no focal motor or sensory deficits noted Skin: Intact with no visualized rashes Psych: Normal affect and mood ED course: 26-year-old distress male with known history of insulin-dependent diabetes mellitus presents to the emergency department for DKA again. Vital signs upon arrival shows heart rate of 150, worse vital signs within acceptable limits. Nursing notes and chart review was performed EKG interpreted by me: Ventricular rate 155, tachycardia, QRS 96, QTC 378. No CT prolongation, no QTC prolongation, no ST or T-wave changes noted. Overall, this EKG is unremarkable Laboratory evaluation obtained. Leukocytosis 17.6. His blood gas shows pH of 7.09 bicarb of 8. Metabolic panel shows acidosis. Glucose 661. Acetone positive. Patient was admitted to ICU for diabetic ketoacidosis. Patient started on DKA protocol. Admitted to ICU. Was pt. sent in by a medical professional or institution (, JAS, PROMOTION SPECIALIST, urgent care, hospital, or retirement...) When possible be specific @ -[No] Did you speak to anyone other than the patient for history (EMS, parent, family, police, friend...)? What history was obtained from this source @ -EMS Did you review nursing and triage notes (agree or disagree)? Why? @ -[I reviewed and agree with nursing and triage notes] Were old charts reviewed (outside hosp., previous admission, EMS record, old EKG, old radiological studies, urgent care reports/EKG's, retirement records)? Report findings @ -[No old charts were reviewed] Differential Diagnosis (chest pain, altered mental status, abdominal pain women, abdominal pain men, vaginal bleeding, weakness, fever, dyspnea, syncope, headache, dizziness, GI bleed, back pain, seizure, CVA, palpatations, mental health)? @ -Differential Altered Mental Status: Hypoglycemia, DKA, hypercapnia, ETOH, overdose, CO poisoning, trauma, myxedema coma, HTN encephalopathy, infection, encephalitis, psychosis, intercranial hemorrhage, hepatic encephalopathy, meningitis, CVA, this is not meant to be an all-inclusive list EKG interpreted by me (3pts min.). @ -[As above] X-rays interpreted by me (1pt min.). @ -[None done] CT interpreted by me (1pt min.). @ -[None done] U/S interpreted by me (1pt. min.). @ -[None done] What testing was considered but not performed or refused? (CT, X-rays, U/S, l abs)? Why? @ -[None] What meds were considered but not given or refused? Why? @ -[None] Did you discuss the management of the patient with other professionals (professionals i.e. , JAS, PROMOTION SPECIALIST, lab, RT, psych nurse, social services, telephone technician, teacher, patrol officer, spring encaser)? Give summary @ -Shield Runner, Dr. Montoya and Dr. Valenzuela Was smoking cessation discussed for >3mins.? @ -[No] Was critical care preformed (if so, how long)? @ -Yes, 33 minutes Were there social determinants of health that impacted care today? How? (Homelessness, low income, unemployed, alcoholism, drug addiction, transportation, low edu. Level, literacy, decrease access to med. care, senior living, rehab)? @ -History of noncompliance, poor social situation Was there de-escalation of care discussed even if they declined (Discuss DNR or withdrawal of care, Hospice)? DNR status @ -[No] What co-morbidities impacted this encounter? (DM, HTN, Smoking, COPD, CAD, Ca ncer, CVA, ARF, Chemo, Hep., AIDS, mental health diagnosis, sleep apnea, morbid obesity)? @ -[None] Was patient admitted / discharged? Hospital course, mention meds given and route, prescriptions, significant lab abnormalities, going to OR and other pertinent info. @ -[See above] Undiagnosed new problem with uncertain prognosis? @ -[No] Drug Therapy requiring intensive monitoring for toxicity (Heparin, Nitro, Insulin, Cardizem)? @ -Yes Were any procedures done? @ -[No] Diagnosis/symptom? @ -Acute diabetic ketoacidosis Acute, or Chronic, or Acute on Chronic? @ -Acute Uncomplicated (without systemic symptoms) or Complicated (systemic symptoms)? @ -Complicated Side effects of treatment? @ -[No] Exacerbation, Progression, or Severe Exacerbation? @ -Exacerbation and progression Poses a threat to life or bodily function? How? (Chest pain, [place], [place], pneumonia, PE, COPD, DKA, ARF, appy, cholecystitis, CVA, Diverticulitis, Homicidal, Suicidal, threat to staff... and all critical care pts) @ -yes - Related Data Home Medications Medication Instructions Recorded Confirmed INSULIN ASPART (NovoLOG) [NovoLOG 10 unit SQ AC-TID 06/29/21 06/04/22 (formulary)] Gabapentin 600 mg PO TID 12/19/21 06/04/22 Insulin Detemir (Levemir) [Levemir] 25 unit SQ DAILY 04/11/22 06/04/22 Previous Rx's Medication Instructions Recorded Ondansetron Odt [Zofran Odt] 4 mg PO Q8HR PRN #10 tab 05/26/22 Allergies Allergy/AdvReac Type Severity Reaction Status Date / Time No Known Allergies Allergy Verified 06/04/22 11:52 Review of Systems ROS Statement: Those systems with pertinent positive or pertinent negative responses have been documented in the HPI. ROS Other: All systems not noted in ROS Statement are negative. Past Medical History Past Medical History: Asthma, Diabetes Mellitus, Neurologic Disorder, Skin Disorder Additional Past Medical History / Comment(s): IDDM type I, neuropathy bilateral feet, DKA, eczema. History of Any Multi-Drug Resistant Organisms: None Reported Past Surgical History: Adenoidectomy Additional Past Surgical History / Comment(s): 2002 Past Anesthesia/Blood Transfusion Reactions: No Reported Reaction Past Psychological History: Anxiety, Depression Smoking Status: Current every day smoker, Vaper Past Alcohol Use History: None Reported Past Drug Use History: None Reported - Past Family History Mother Family Medical History: CVA/TIA Additional Family Medical History / Comment(s): TIA Father Family Medical History: Hyperlipidemia, Hypertension Additional Family Medical History / Comment(s): . General Exam Limitations: no limitations Course Vital Signs 06/04/22 06/04/22 10:25 11:50 Temperature 97.3 F L Pulse Rate 154 H 134 H Respiratory 18 15 Rate Blood Pressure 123/90 124/75 O2 Sat by Pulse 95 97 Oximetry Medical Decision Making - Lab Data Result diagrams: 06/04/22 11:01 06/04/22 11:01 Lab Results 06/04/22 06/04/22 06/04/22 Range/Units 10:37 11:01 11:01 WBC 17.6 H (3.8-10.6) k/uL RBC 4.92 (4.30-5.90) m/uL Hgb 15.5 (13.0-17.5) gm/dL Hct 47.7 (39.0-53.0) % MCV 97.0 (80.0-100.0) fL MCH 31.5 (25.0-35.0) pg MCHC 32.5 (31.0-37.0) g/dL RDW 13.1 (11.5-15.5) % Plt Count 456 H (150-450) k/uL MPV 8.8 Neutrophils % 86 % Lymphocytes % 10 % Monocytes % 3 % Eosinophils % 0 % Basophils % 0 % Neutrophils # 15.1 H (1.3-7.7) k/uL Lymphocytes # 1.8 (1.0-4.8) k/uL Monocytes # 0.6 (0-1.0) k/uL Eosinophils # 0.0 (0-0.7) k/uL Basophils # 0.1 (0-0.2) k/uL VBG pH (7.31-7.41) VBG pCO2 (37-51) mmHg VBG HCO3 (24-28) mmol/L Sodium 138 (137-145) mmol/L Potassium 5.6 H (3.5-5.1) mmol/L Chloride 96 L (98-107) mmol/L Carbon Dioxide 5 L* (22-30) mmol/L Anion Gap 37 mmol/L BUN 25 H (9-20) mg/dL Creatinine 1.43 H (0.66-1.25) mg/dL Est GFR (CKD-EPI)AfAm 79 (>60 ml/min/1.73 sqM) Est GFR (CKD-EPI)NonAf 69 (>60 ml/min/1.73 sqM) Glucose 661 H* (74-99) mg/dL POC Glucose (mg/dL) >600 H (70-110) mg/dL POC Glu Field Service Supervisor Wilver Woods Acetone, Qual Positive (Negative) 06/04/22 06/04/22 Range/Units 11:01 12:31 WBC (3.8-10.6) k/uL RBC (4.30-5.90) m/uL Hgb (13.0-17.5) gm/dL Hct (39.0-53.0) % MCV (80.0-100.0) fL MCH (25.0-35.0) pg MCHC (31.0-37.0) g/dL RDW (11.5-15.5) % Plt Count (150-450) k/uL MPV Neutrophils % % Lymphocytes % % Monocytes % % Eosinophils % % Basophils % % Neutrophils # (1.3-7.7) k/uL Lymphocytes # (1.0-4.8) k/uL Monocytes # (0-1.0) k/uL Eosinophils # (0-0.7) k/uL Basophils # (0-0.2) k/uL VBG pH 7.09 L* (7.31-7.41) VBG pCO2 29 L (37-51) mmHg VBG HCO3 8 L* (24-28) mmol/L Sodium (137-145) mmol/L Potassium (3.5-5.1) mmol/L Chloride (98-107) mmol/L Carbon Dioxide (22-30) mmol/L Anion Gap mmol/L BUN (9-20) mg/dL Creatinine (0.66-1.25) mg/dL Est GFR (CKD-EPI)AfAm (>60 ml/min/1.73 sqM) Est GFR (CKD-EPI)NonAf (>60 ml/min/1.73 sqM) Glucose (74-99) mg/dL POC Glucose (mg/dL) 473 H (70-110) mg/dL POC Glu Field Service Supervisor Wilver Woods, Qual (Negative) Critical Care Time Critical Care Time: Yes Total Critical Care Time: 33 Disposition Clinical Impression: DKA (diabetic ketoacidosis) Disposition: ADMITTED IP TO THIS [facility] Condition: Critical Referrals: None,Stated [Primary Care Provider] - 1-2 days Decision Time: 12:38
[2022-06-04 11:46] LABS: HCT 47.7 % (39.0-53.0); HGB 15.5 gm/dL (13.0-17.5); MCH 31.5 pg (25.0-35.0); MCHC 32.5 g/dL (31.0-37.0); RBC 4.92 m/uL (4.30-5.90); WBC 17.6 k/uL (3.8-10.6)
[2022-06-04 11:47] LABS: Basophils # (A) 0.1 k/uL (0-0.2); Basophils % (A) 0 %; Eosinophils % (A) 0 %; Lymphocytes # (A) 1.8 k/uL (1.0-4.8); Lymphocytes % (A) 10 %; Mean Platelet Volume 8.8; Monocytes # (A) 0.6 k/uL (0-1.0); Monocytes % (A) 3 %; Neutrophils # (A) 15.1 k/uL (1.3-7.7); Neutrophils % (A) 86 %; Platelet Count 456 k/uL (150-450); RDW 13.1 % (11.5-15.5)
[2022-06-04 11:55] LABS: VBG PH 7.09 (7.31-7.41)
[2022-06-04 11:59] LABS: African American GFR (CKD) 79 (>60 ml/min/1.73 sqM); Anion Gap 37 mmol/L; Blood Urea Nitrogen 25 mg/dL (9-20); Chloride 96 mmol/L (98-107); Non-African American GFR(CKD) 69 (>60 ml/min/1.73 sqM); Potassium 5.6 mmol/L (3.5-5.1); Sodium 138 mmol/L (137-145)
[2022-06-04 12:25] LABS: Carbon Dioxide 5 mmol/L (22-30); Glucose 661 mg/dL (74-99)
[2022-06-04] MEDS ORDERED: NALOXONE 0.4 MG/ML 1 ML VIAL IV PRN (12:31)
[2022-06-04 12:32] LABS: Glucose,Whole Blood 473 mg/dL (70-110)
[2022-06-04 13:42] LABS: Glucose,Whole Blood 313 mg/dL (70-110)
[2022-06-04 14:28] LABS: Glucose,Whole Blood 254 mg/dL (70-110)
[2022-06-04] MEDS: D5-0.45% NACL WITH KCL 20MEQ/L 1,000 ML IV SCH ×2 (14:58→22:41)
[2022-06-04 15:55] LABS: Glucose,Whole Blood 206 mg/dL (70-110)
[2022-06-04 16:57] LABS: African American GFR (CKD) >90 (>60 ml/min/1.73 sqM); Anion Gap 18 mmol/L; Blood Urea Nitrogen 26 mg/dL (9-20); Carbon Dioxide 16 mmol/L (22-30); Chloride 110 mmol/L (98-107); Glucose 218 mg/dL (74-99); Non-African American GFR(CKD) >90 (>60 ml/min/1.73 sqM); Phosphorus 2.3 mg/dL (2.5-4.5); Potassium 4.6 mmol/L (3.5-5.1); Sodium 144 mmol/L (137-145)
[2022-06-04 17:01] LABS: Glucose,Whole Blood 191 mg/dL (70-110)
[2022-06-04 18:07] LABS: Glucose,Whole Blood 152 mg/dL (70-110)
[2022-06-04 19:02] LABS: Glucose,Whole Blood 142 mg/dL (70-110)
[2022-06-04 19:56] LABS: Glucose,Whole Blood 172 mg/dL (70-110)
[2022-06-04 21:06] LABS: Glucose,Whole Blood 151 mg/dL (70-110)
[2022-06-04 21:08] LABS: African American GFR (CKD) >90 (>60 ml/min/1.73 sqM); Anion Gap 7 mmol/L; Blood Urea Nitrogen 25 mg/dL (9-20); Carbon Dioxide 22 mmol/L (22-30); Chloride 107 mmol/L (98-107); Glucose 173 mg/dL (74-99); Non-African American GFR(CKD) >90 (>60 ml/min/1.73 sqM); Phosphorus 2.1 mg/dL (2.5-4.5); Potassium 4.7 mmol/L (3.5-5.1); Sodium 136 mmol/L (137-145)
[2022-06-04 22:08] LABS: Glucose,Whole Blood 125 mg/dL (70-110)
[2022-06-04] MEDS: INSULIN DETEMIR (LEVEMIR) 100 UNIT/ML SYR SQ SCH (23:20)
[2022-06-05 02:12] LABS: Glucose,Whole Blood 120 mg/dL (70-110)
[2022-06-05] MEDS: INSULIN ASPART (NovoLOG) 100 UNIT/ML VIAL SQ SCH ×8 (02:12→21:39)
[2022-06-05 06:06] LABS: African American GFR (CKD) >90 (>60 ml/min/1.73 sqM); Anion Gap 11 mmol/L; Blood Urea Nitrogen 23 mg/dL (9-20); Carbon Dioxide 22 mmol/L (22-30); Chloride 101 mmol/L (98-107); Non-African American GFR(CKD) >90 (>60 ml/min/1.73 sqM); Phosphorus 2.7 mg/dL (2.5-4.5); Potassium 4.2 mmol/L (3.5-5.1); Sodium 134 mmol/L (137-145)
[2022-06-05 06:59] LABS: Glucose,Whole Blood 78 mg/dL (70-110)
[2022-06-05 09:48] VITALS: BMI 20.5
[2022-06-05 13:29] LABS: Glucose,Whole Blood 213 mg/dL (70-110)
--- NOTE | 2022-06-05 15:02 | P.CNPUL ---
History of Present Illness Consult date: 06/05/22 Requesting physician: Brown Valenzuela Reason for consult: other (Acute DKA) Chief complaint: Nausea vomiting and elevated blood sugar History of present illness: This is a 26-year-old white male with history of type 1 diabetes, history of recurrent episodes of DKA mostly because of noncompliance. Patient presented again to the ER with similar symptoms including nausea vomiting, and elevated blood sugar. Patient was found to have blood sugar as high as over 600, and he had positive ketones. He had anion gap as high as 37 with severe acute metabolic acidosis secondary to DKA. Patient was admitted placed on the DKA protocol, insulin drip, IV fluids were given in the form appointment normal saline, and by the time I saw the patient this morning, his anion gap has closed, patient is doing better, and I plan to transfer him out of the ICU to be managed by his primary care physician with subcu insulin as per scale, and to receive Levemir insulin maintenance. Labs this morning were reviewed, anion gap is down to 11. His electrolytes are normal renal profile is normal blood sugar is 213. Review of Systems Constitutional: Reports weakness, Denies chills, Denies fever Eyes: denies blurred vision, denies pain Ears, nose, mouth and throat: Denies headache, Denies sore throat Cardiovascular: Denies chest pain, Denies shortness of breath Respiratory: Denies cough Gastrointestinal: As noted in HPI. Musculoskeletal: Denies myalgias Integumentary: Denies pruritus, Denies rash Neurological: Denies numbness, Denies weakness Psychiatric: Denies anxiety, Denies depression Endocrine: Denies fatigue, Denies weight change Past Medical History Past Medical History: Asthma, Diabetes Mellitus, Neurologic Disorder, Skin Disorder Additional Past Medical History / Comment(s): IDDM type I, neuropathy bilateral feet, DKA, eczema. History of Any Multi-Drug Resistant Organisms: None Reported Past Surgical History: Adenoidectomy Additional Past Surgical History / Comment(s): 2002 Past Anesthesia/Blood Transfusion Reactions: No Reported Reaction Past Psychological History: Anxiety, Depression Additional Psychological History / Comment(s): Pt has had multiple psychiatric admissions for depression/suicide attempts. Pt state he has not thoughts of hurting himself now Smoking Status: Current every day smoker, Vaper Past Alcohol Use History: None Reported Additional Past Alcohol Use History / Comment(s): Pt started smoking cigarettes as a teen and quit "long ago." Pt started occasional vaping in 2009. Pt states he drinks alcohol occassionally but never more than 14 drinks a week. Past Drug Use History: None Reported Additional Drug Use History / Comment(s): Occasional - Past Family History Mother Family Medical History: CVA/TIA Additional Family Medical History / Comment(s): TIA Father Family Medical History: Hyperlipidemia, Hypertension Additional Family Medical History / Comment(s): . Medications and Allergies Home Medications Medication Instructions Recorded Confirmed Type INSULIN ASPART (NovoLOG) [NovoLOG 10 unit SQ AC-TID 06/29/21 06/04/22 History (formulary)] Gabapentin 600 mg PO TID 12/19/21 06/04/22 History Insulin Detemir (Levemir) [Levemir] 25 unit SQ DAILY 04/11/22 06/04/22 History Ondansetron Odt [Zofran Odt] 4 mg PO Q8HR PRN #10 tab 05/26/22 06/04/22 Rx Allergies Allergy/AdvReac Type Severity Reaction Status Date / Time No Known Allergies Allergy Verified 06/04/22 11:52 Physical Exam Vitals: Vital Signs Temp Pulse Pulse Resp BP BP Pulse Ox 06/05/22 14:02 98.1 F 97 17 124/78 99 06/05/22 09:00 97 12 112/72 97 06/05/22 08:00 97.8 F 104 H 12 119/82 96 06/05/22 07:00 106 H 9 L 119/82 96 06/05/22 06:00 101 H 15 110/75 95 06/05/22 05:00 106 H 12 127/100 96 06/05/22 04:00 98.1 F 96 13 103/65 96 06/05/22 03:00 106 H 17 103/65 96 06/05/22 02:00 105 H 16 101/65 96 06/05/22 01:00 108 H 14 121/84 95 06/05/22 00:00 97.8 F 101 H 13 105/65 95 06/04/22 23:00 111 H 20 106/59 96 06/04/22 22:00 116 H 18 111/68 97 06/04/22 21:00 110 H 20 108/68 97 06/04/22 20:00 97.8 F 112 H 14 115/77 95 06/04/22 19:00 117 H 20 122/85 06/04/22 18:00 118 H 10 L 118/88 06/04/22 17:00 121 H 20 122/91 06/04/22 16:00 98.9 F 117 H 24 96 06/04/22 15:00 125 H 22 117/73 Intake and Output 06/04/22 06/05/22 06/05/22 22:59 06:59 14:59 Intake Total 1336.645 750 320 Output Total 0 500 350 Balance 1336.645 250 -30 Intake: IV 1050 450 100 D5-0.45% NaCl with KCl 1050 450 100 20Meq/l 1,000 ml @ 50 mls /hr IV .Q20H YAEL Rx#: [id number] Intake, IV Titration 66.645 Amount Insulin Regular 100 unit 66.645 In Sodium Chloride 0.9% 100 ml @ 0.1 UNITS/KG/HR 6.643 mls/hr IV .[id number] YAEL Rx#:[id number] Oral 220 300 220 Output: Urine 0 500 350 Other: Voiding Method Urinal Urinal Urinal # Voids 1 Weight 65.771 kg 66.8 kg 66.8 kg Physical Exam: Revealed 26-year-old white male in no distress Head: Atraumatic normocephalic. HEENT:[Neck is supple.] [No neck masses.] [No thyromegaly.] [No JVD.] Chest: [Clear throughout, no crackles, no rhonchi, no wheezes.] Cardiac Exam: [Normal S1 and S2, no S3 gallop, no murmur.] Abdomen: [Soft, nontender, no megaly, no rebound, no guarding, normal bowel sounds.] Extremities: [No clubbing, no edema, no cyanosis.] Neurological Exam: [No focal neurologic deficit.] Alert and oriented 3. Psychiatric: Normal mood affect and normal mental status examination. Skin: No rashes. [place] skeletal: No deformities and no limitation in range of motion Results - Laboratory Findings CBC and BMP: 06/04/22 11:01 06/05/22 05:32 Abnormal lab findings: Abnormal Labs 01/03/1706/04/22 06/04/22 10:37 11:01 11:01 WBC 17.6 H Plt Count 456 H Neutrophils # 15.1 H VBG pH VBG pCO2 VBG HCO3 Sodium Potassium 5.6 H Chloride 96 L Carbon Dioxide 5 L* BUN 25 H Creatinine 1.43 H Glucose 661 H* POC Glucose (mg/dL) >600 H Phosphorus 06/04/22 06/04/22 06/04/22 11:01 12:31 13:40 WBC Plt Count Neutrophils # VBG pH 7.09 L* VBG pCO2 29 L VBG HCO3 8 L* Sodium Potassium Chloride Carbon Dioxide BUN Creatinine Glucose POC Glucose (mg/dL) 473 H 313 H Phosphorus 06/04/22 06/04/22 06/04/22 14:24 15:52 16:07 WBC Plt Count Neutrophils # VBG pH VBG pCO2 VBG HCO3 Sodium Potassium Chloride 110 H Carbon Dioxide 16 L BUN 26 H Creatinine Glucose 218 H POC Glucose (mg/dL) 254 H 206 H Phosphorus 2.3 L 06/04/22 06/04/22 06/04/22 16:58 18:06 19:00 WBC Plt Count Neutrophils # VBG pH VBG pCO2 VBG HCO3 Sodium Potassium Chloride Carbon Dioxide BUN Creatinine Glucose POC Glucose (mg/dL) 191 H 152 H 142 H Phosphorus 06/04/22 06/04/22 06/04/22 19:55 20:41 21:05 WBC Plt Count Neutrophils # VBG pH VBG pCO2 VBG HCO3 Sodium 136 L Potassium Chloride Carbon Dioxide BUN 25 H Creatinine Glucose 173 H POC Glucose (mg/dL) 172 H 151 H Phosphorus 2.1 L 06/04/22 06/05/22 06/05/22 22:06 02:10 05:32 WBC Plt Count Neutrophils # VBG pH VBG pCO2 VBG HCO3 Sodium 134 L Potassium Chloride Carbon Dioxide BUN 23 H Creatinine Glucose POC Glucose (mg/dL) 125 H 120 H Phosphorus 06/05/22 13:27 WBC Plt Count Neutrophils # VBG pH VBG pCO2 VBG HCO3 Sodium Potassium Chloride Carbon Dioxide BUN Creatinine Glucose POC Glucose (mg/dL) 213 H Phosphorus Assessment and Plan Assessment: Acute diabetic ketoacidosis Anion gap metabolic acidosis secondary to DKA Type 1 diabetes with diabetic neuropathy Multiple admissions with diabetic ketoacidosis mostly because of noncompliance Previous history of drug overdose and suicidal attempts Medical noncompliance History of depression and generalized anxiety disorder History of chronic insomnia History of mild intermittent asthma presently under control History of marijuana use. Recommendation: Continue present treatment plan Patient is off insulin drip, he is now on sliding scale and he is on Levemir insulin Continue IV fluids ADA diet Transfer out of the ICU to regular medical floor Will follow as needed Time with Patient: Greater than 30
[2022-06-05 17:02] LABS: Glucose,Whole Blood 189 mg/dL (70-110)
[2022-06-05] MEDS: INSULIN DETEMIR (LEVEMIR) 100 UNIT/ML SYR SQ SCH (21:39)
[2022-06-06 00:58] LABS: Glucose,Whole Blood 289 mg/dL (70-110)
[2022-06-06] MEDS: INSULIN ASPART (NovoLOG) 100 UNIT/ML VIAL SQ SCH ×7 (01:07→18:02)
--- NOTE | 2022-06-06 02:45 | HP ---
HISTORY AND PHYSICAL CHIEF COMPLAINT: Lethargy and DKA. HISTORY OF PRESENT ILLNESS: This is another admission for this 26-year-old white male. He was just in the hospital recently. He came in this time with a pH 7.09, blood sugar 661, bicarb of 5, anion gap of 37, and was vomiting. REVIEW OF SYSTEMS: Was not obtained because of his lethargy. Past medical history, family history, personal and social histories are unchanged. PHYSICAL EXAMINATION: VITAL SIGNS: Pulse is 125 with respirations of 36. Blood pressure is 108/70. GENERAL: He appeared to be dehydrated and lethargic. HEAD, EARS, EYES, NOSE, MOUTH AND THROAT: Normal. NECK: Neck veins are not distended. CHEST: Clear. CARDIAC: Demonstrated normal sinus rhythm with tachycardia. ABDOMEN: Soft and nontender. EXTREMITIES: Normal. NEUROLOGICAL: He is lethargic, but arousable. IMPRESSION: 1. Diabetic ketoacidosis. 2. Depression. PLAN: Placed in ICU with ICU management until he is stable. MMODL / IJN: [id number] /
--- NOTE | 2022-06-06 02:48 | PN ---
PROGRESS NOTE DATE OF SERVICE: 06/05/2022 CHIEF COMPLAINT: DKA and depression. HISTORY OF PRESENT ILLNESS: This gentleman is doing well. He is awake and alert. Numbers have improved. During the day he admitted that he wanted to kill himself. Psych consult was placed and he now has a sitter. He is very upset about this. PHYSICAL EXAMINATION: VITAL SIGNS: Normal. CHEST: Clear. CARDIAC: Normal. ABDOMEN: Flat and soft. IMPRESSION: 1. Diabetic ketoacidosis. 2. Uncontrolled type 1 insulin-dependent diabetes mellitus. 3. Major depression. PLAN: Psychiatric evaluation. He has already been petitioned. MMODL / IJN: [id number] /
[2022-06-06 07:02] LABS: Glucose,Whole Blood 316 mg/dL (70-110)
[2022-06-06 07:52] VITALS: RESP 17
[2022-06-06 11:08] LABS: Glucose,Whole Blood 185 mg/dL (70-110)
[2022-06-06 12:41] VITALS: BP 106/72; PULSE 107; TEMP 98.3
--- NOTE | 2022-06-06 13:38 | P.CN ---
Psychiatric Consult - . 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 HPI: Patient presented to the hospital yesterday for nausea and vomiting and was brought in by EMS. Patient has a long history of multiple admissions for DKA and also depression in the past. Patient is known to be noncompliant with his medications. Patient was seen today for psychiatric call follow-up for suicidal ideations. Patient was laying in the bed and has a sitter beside him. He was well dressed in history clothing and appeared to be awake. claims that he was speaking with a social worker clinical yesterday and had a "outburst" and states that "it was a deterrent of me to say that". He claims that he claimed that he wanted to kill himself however states that today he regretted saying that and said it impulsively. He had regrets about it and showed remorse. He was future oriented speaking about his job and wanting to stay on his medications. When confronted about his multiple admissions and also DKA in the past he claims that "their stuff that I am still working through". He continues to have chronically superficial insight and judgment. He is denying any active suicidal or homicidal ideations intent or plan to denying any auditory or visual h allucinations. Patient claims that he does not want antidepressants at this time. PAST PSYCHIATRIC HISTORY: The patient has had multiple psychiatric hospitalizations. He is nonadherent with any prescribed medications and does not follow up with any psychiatrist or therapist on a regular basis. Patient has been tried on several different antidepressants in the past however has been nonadherent and has been not helpful to him. Patient has had several suicide attempts in the past. Patient was last admitted to the mental health unit in December 2021. Has a history of cluster B personality disorder and depression. PMH: Past Medical History: Asthma, Diabetes Mellitus, Neurologic Disorder, Skin Disorder Additional Past Medical History / Comment(s): IDDM type I, neuropathy bilateral feet, DKA, eczema. History of Any Multi-Drug Resistant Organisms: None Reported Past Surgical History: Adenoidectomy Additional Past Surgical History / Comment(s): 2002 Past Anesthesia/Blood Transfusion Reactions: No Reported Reaction Past Psychological History: Anxiety, Depression Smoking Status: Never smoker, Vaper Past Alcohol Use History: Occasional Past Drug Use History: Marijuana ALLERGIES: NO KNOWN DRUG ALLERGIES CHEMICAL DEPENDENCY HISTORY: The patient reports binge alcohol use episodes in the past. He does admit to marijuana use, up to a quarter ounce per day. He has a history of Xanax abuse however denies any Xanax use over the past few weeks. FAMILY PSYCHIATRIC/SUBSTANCE USE HISTORY: Denies SOCIAL HISTORY: Patient was born and raised in [place]. He dropped out in the 11th grade. He lives with his mother in a home. 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 MENTAL STATUS EXAM: General Appearance: Patient appears to be tall, thin, alert, stated age. Patient appears to have a slightly disheveled hygiene and grooming. Dressed in street clothing. Behavior: Patient is seated without any agitated behavior. Eye contact is intermittent. Speech: Patient's speech is fluent and nonpressured. Monotone. Mood/Affect: Patient reports their mood is "alright", affect is constricted. Suicidality/Homicidality: Patient denies suicidal ideation denies any homicidal ideation. Perceptions: Patient denies any visual hallucinations and denies any auditory hallucinations Though content/process: There is no evidence of any delusional thought content and thought process is linear and goal-directed. [place]. \\Rationalizing. Memory and concentration: AOX3, grossly intact for the purposes of this session. Can spell "WORLD" backwards Judgment and insight: Chronically poor IMPRESSIONS: Nonadherence to medications DKA Borderline personality disorder History of depression Cannabis use disorder PLAN: -At this time patient DOES NOT meet criteria for inpatient psychiatric admiss ion. -Patient has poor judgment and insight and is a chronic risk to self-harm due to his personality disorder impulsiveness, poor judgment/insight and substance abuse which is unlikely to change with inpatient psychiatric admission. Patient is also nonadherent to medications including antidepressants and diabetic medications. -Would recommend the following medication changes/additions: Heat And Frost Insulator spoke with patient about different medication options however patient states that he is not interested at this time and did not want to get started on any medications at this time including antidepressants. It is recommended and comic writer informed patient that he needs to follow-up with [facility] and go into DBT therapy which I believe will be most suitable for him. -pack mule worker to provide patient with outpatient mental health/psychiatry resources for appropriate follow up upon discharge -Heat And Frost Insulator spoke with patient about substance abuse and the harmful effects on medical and mental health, patient verbally understood and agreed. -Psychiatry will sign off at this time -Please contact with any questions. 06/06/22 13:33
[2022-06-06 17:05] LABS: Glucose,Whole Blood 289 mg/dL (70-110)
== END 2022-06-06 18:31 | disposition home or self-care (01) | DRG 638 ==
LOC: EC 10:23 → 2SICU 12:32 → 5NMEDONC 06-05 14:07
PROVIDERS: ADMIT Family Medicine; ATTEND Family Medicine
DX: E10.10 Type 1 diabetes mellitus with ketoacidosis without coma (principal); R45.851 Suicidal ideations; E10.42 Type 1 diabetes mellitus with diabetic polyneuropathy; J45.20 Mild intermittent asthma, uncomplicated; F13.11 Sedative, hypnotic or anxiolytic abuse, in remission; F32.9 Major depressive disorder, single episode, unspecified; R00.0 Tachycardia, unspecified; F17.290 Nicotine dependence, other tobacco product, uncomplicated; F41.1 Generalized anxiety disorder; F51.04 Psychophysiologic insomnia; E86.0 Dehydration; F60.3 Borderline personality disorder; T38.3X6A Underdosing of insulin and oral hypoglycemic [antidiabetic] drugs, initial encounter; Z79.4 Long term (current) use of insulin; Z79.899 Other long term (current) drug therapy; Z91.51 Personal history of suicidal behavior; Z91.14 Patient's other noncompliance with medication regimen; Z91.199 Patient's noncompliance with other medical treatment and regimen due to unspecified reason
CPT/HCPCS: 36415; 80051; 80320; 82009; 82565; 82803; 82947; 84100; 84520; 85025; 93005; 96361; 96365; 99291

== ENCOUNTER 2022-06-07 13:07 | Inpatient (IN) | payer OTHER ==
[2022-06-07 13:21] LABS: Glucose,Whole Blood 515 mg/dL (70-110)
[2022-06-07] MEDS ORDERED: SODIUM CHLORIDE 0.9% 2,000 ML IV STA (13:23)
[2022-06-07 13:51] LABS: Basophils % (A) 1 %; Eosinophils % (A) 1 %; HCT 44.1 % (39.0-53.0); HGB 15.1 gm/dL (13.0-17.5); Lymphocytes # (A) 1.1 k/uL (1.0-4.8); Lymphocytes % (A) 15 %; MCHC 34.2 g/dL (31.0-37.0); MCV 93.4 fL (80.0-100.0); Mean Platelet Volume 8.1; Monocytes # (A) 0.2 k/uL (0-1.0); Monocytes % (A) 3 %; Neutrophils % (A) 80 %; Platelet Count 293 k/uL (150-450); RBC 4.72 m/uL (4.30-5.90); RDW 13.3 % (11.5-15.5); WBC 7.6 k/uL (3.8-10.6)
[2022-06-07 13:57] LABS: VBG PH 7.41 (7.31-7.41)
[2022-06-07 14:11] LABS: ALT 18 U/L (4-49); AST 15 U/L (17-59); African American GFR (CKD) >90 (>60 ml/min/1.73 sqM); Albumin 4.7 g/dL (3.5-5.0); Alkaline Phosphatase 105 U/L (38-126); Anion Gap 27 mmol/L; Blood Urea Nitrogen 23 mg/dL (9-20); Calcium 9.3 mg/dL (8.4-10.2); Carbon Dioxide 12 mmol/L (22-30); Chloride 97 mmol/L (98-107); Lipase 103 U/L (23-300); Non-African American GFR(CKD) >90 (>60 ml/min/1.73 sqM); Potassium 4.8 mmol/L (3.5-5.1); Sodium 136 mmol/L (137-145); Total Bilirubin 1.2 mg/dL (0.2-1.3)
[2022-06-07 14:27] LABS: Glucose 570 mg/dL (74-99)
--- NOTE | 2022-06-07 14:36 | ED ---
Abdominal Pain HPI - General Chief Complaint: Abdominal Pain Stated Complaint: Abd pain Time Seen by Provider: 06/07/22 13:12 Source: patient, EMS Mode of arrival: EMS Limitations: no limitations - History of Present Illness Initial Comments: 26-year-old male with past medical history of gastroparesis, type 1 diabetes who presents emergency room and for nausea, vomiting and abdominal pain. Patient is well-known to the emergency department for similar complaint. He is a noncompliant type I diabetic who is homeless and does not take his insulin. Marissa torrez presents and does not provide much history. He refuses to answer most questions that I ask. Reports that he has insulin and is taking it. Remainder of HPI is limited - Related Data Home Medications Medication Instructions Recorded Confirmed INSULIN ASPART (NovoLOG) [NovoLOG 10 unit SQ AC-TID 06/29/21 06/11/22 (formulary)] Gabapentin 600 mg PO TID 12/19/21 06/11/22 Insulin Detemir (Levemir) [Levemir] 25 unit SQ DAILY 04/11/22 06/11/22 Previous Rx's Medication Instructions Recorded Ondansetron Odt [Zofran ODT] 4 mg PO Q8HR PRN #10 tab 05/26/22 Allergies Allergy/AdvReac Type Severity Reaction Status Date / Time No Known Allergies Allergy Verified 06/11/22 18:21 Review of Systems ROS Statement: Those systems with pertinent positive or pertinent negative responses have been documented in the HPI. ROS Other: All systems not noted in ROS Statement are negative. Past Medical History Past Medical History: Asthma, Diabetes Mellitus, Neurologic Disorder, Skin Di sorder Additional Past Medical History / Comment(s): IDDM type I, neuropathy bilateral feet, DKA, eczema. History of Any Multi-Drug Resistant Organisms: None Reported Past Surgical History: Adenoidectomy Additional Past Surgical History / Comment(s): 2002 Past Anesthesia/Blood Transfusion Reactions: No Reported Reaction Past Psychological History: Anxiety, Depression Smoking Status: Current every day smoker, Vaper Past Alcohol Use History: None Reported Past Drug Use History: None Reported - Past Family History Mother Family Medical History: CVA/TIA Additional Family Medical History / Comment(s): TIA Father Family Medical History: Hyperlipidemia, Hypertension Additional Family Medical History / Comment(s): . General Exam Limitations: altered mental status General appearance: lethargic Head exam: Present: atraumatic, normocephalic, normal inspection Eye exam: Present: normal appearance, PERRL, EOMI. Absent: scleral icterus, conjunctival injection, periorbital swelling ENT exam: Present: normal exam, mucous membranes dry Neck exam: Present: normal inspection. Absent: tenderness, meningismus, lymphadenopathy Respiratory exam: Present: normal lung sounds bilaterally. Absent: respiratory distress, wheezes, rales, rhonchi, stridor Cardiovascular Exam: Present: normal rhythm, tachycardia, normal heart sounds. Absent: systolic murmur, diastolic murmur, rubs, gallop, clicks GI/Abdominal exam: Present: soft, tenderness (generalized), normal bowel sounds. Absent: distended, guarding, rebound, rigid Extremities exam: Present: normal inspection, full ROM, normal capillary refill. Absent: tenderness, pedal edema, joint swelling, calf tenderness Back exam: Present: normal inspection Neurological exam: Present: alert, oriented X3, CN II-XII intact Psychiatric exam: Present: normal affect, normal mood Skin exam: Present: warm, dry, intact, normal color. Absent: rash Course Vital Signs 06/07/22 06/07/22 06/07/22 13:08 14:15 15:15 Temperature 97.7 F 97.6 F Pulse Rate 124 H 116 H 127 H Pulse Rate [ Pulse Oximetery ] Respiratory 18 17 18 Rate Blood Pressure 128/94 133/85 131/87 Blood Pressure [Right Arm] O2 Sat by Pulse 100 100 100 Oximetry 06/07/22 16:00 Temperature 98.1 F Pulse Rate Pulse Rate [ 126 H Pulse Oximetery ] Respiratory 18 Rate Blood Pressure Blood Pressure 120/76 [Right Arm] O2 Sat by Pulse 97 Oximetry Medical Decision Making - Medical Decision Making Was pt. sent in by a medical professional or institution? no Did you speak to anyone other than the patient for history? no Did you review nursing and triage notes? yes and I agree Were old charts reviewed? yes, previous hospitalizations Differential Diagnosis? Hypoglycemia, DKA, hypercapnia, ETOH, overdose, CO poisoning, trauma, myxedema coma, HTN encephalopathy, infection, encephalitis, psychosis, intercranial hemo rrhage, hepatic encephalopathy, meningitis, CVA this is not meant to be an all-inclusive list EKG interpreted by me (3pts min.)? yes X-rays interpreted by me (1pt min.)? no CT interpreted by me (1pt min.)? no U/S interpreted by me (1pt. min.)? no What testing was considered but not performed? (CT, X-rays, U/S, labs)? Why? ct abd however patient has had several done What meds were considered but not given? Why? none Did you discuss the management of the patient with other professionals? admitting physician - Dr. Valenzuela Did you reconcile home meds? yes Was smoking cessation discussed for >3mins.? yes Was critical care preformed (if so, how long)? yes 35 minutes Were there social determinants of health that impacted care today? How? (Homelessness, low income, unemployed, alcoholism, drug addiction, transportation, low edu. Level, literacy, decrease access to med. care, prison, rehab)? patient homeless so he keeps coming back to the ED Was there de-escalation of care discussed even if they declined? (Discuss DNR or withdrawal of care, Hospice)? no What co-morbidities impacted this encounter? (DM, HTN, Smoking, COPD, CAD, Cancer, CVA, Hep., AIDS, mental health diagnosis, sleep apnea, morbid obesity)? DM, gastroparesis Was patient admitted / discharged? Upon arrival patient was placed into room 27. I attempted to obtain a history. Patient placed on continuous pulse ox and cardiac monitoring. 2 L of fluid is administered. Laboratory studies are conducted which demonstrates a gap of 27, CO2 of 12. Glucose 570. He was given informal grams of Zofran by EMS. Patient placed on an insulin drip. Accu-Cheks will be performed every hour. Dr. Valenzuela agreed to admit the patient Undiagnosed new problem with uncertain prognosis? yes Drug Therapy requiring intensive monitoring for toxicity (Heparin, Nitro, Insulin, Cardizem)? yes, insulin Were any procedures done? no Diagnosis/symptom? acute DKA Acute, or Chronic, or Acute on Chronic? acute on chronic Uncomplicated (without systemic symptoms) or Complicated (systemic symptoms)? complicated Side effects of treatment? none Exacerbation, Progression, or Severe Exacerbation] exacerbation Poses a threat to life or bodily function? yes - Lab Data Result diagrams: 06/07/22 13:26 06/08/22 08:46 Lab Results 06/07/22 06/07/22 06/07/22 Range/Units 13:11 13:26 13:26 WBC 7.6 (3.8-10.6) k/uL RBC 4.72 (4.30-5.90) m/uL Hgb 15.1 (13.0-17.5) gm/dL Hct 44.1 (39.0-53.0) % MCV 93.4 (80.0-100.0) fL MCH 32.0 (25.0-35.0) pg MCHC 34.2 (31.0-37.0) g/dL RDW 13.3 (11.5-15.5) % Plt Count 293 (150-450) k/uL MPV 8.1 Neutrophils % 80 % Lymphocytes % 15 % Monocytes % 3 % Eosinophils % 1 % Basophils % 1 % Neutrophils # 6.0 (1.3-7.7) k/uL Lymphocytes # 1.1 (1.0-4.8) k/uL Monocytes # 0.2 (0-1.0) k/uL Eosinophils # 0.0 (0-0.7) k/uL Basophils # 0.0 (0-0.2) k/uL VBG pH (7.31-7.41) VBG pCO2 (37-51) mmHg VBG HCO3 (24-28) mmol/L Sodium (137-145) mmol/L Potassium (3.5-5.1) mmol/L Chloride (98-107) mmol/L Carbon Dioxide (22-30) mmol/L Anion Gap mmol/L BUN (9-20) mg/dL Creatinine (0.66-1.25) mg/dL Est GFR (CKD-EPI)AfAm (>60 ml/min/1.73 sqM) Est GFR (CKD-EPI)NonAf (>60 ml/min/1.73 sqM) Glucose (74-99) mg/dL POC Glucose (mg/dL) 515 H (70-110) mg/dL POC Glu Custom Applicator ID Meli Pandey Lactic Ac Sepsis Rflx Plasma Lactic Acid Len (0.7-2.0) mmol/L Calcium (8.4-10.2) mg/dL Total Bilirubin (0.2-1.3) mg/dL AST (17-59) U/L ALT (4-49) U/L Alkaline Phosphatase (38-126) U/L Total Protein (6.3-8.2) g/dL Albumin (3.5-5.0) g/dL Lipase (23-300) U/L Urine Color Colorless Urine Appearance Clear (Clear) Urine pH 5.5 (5.0-8.0) Ur Specific [place] 1.025 (1.001-1.035) Urine Protein Negative (Negative) Urine Glucose (UA) 4+ H (Negative) Urine Ketones 4+ H (Negative) Urine Blood Negative (Negative) Urine Nitrite Negative (Negative) Urine Bilirubin Negative (Negative) Urine Urobilinogen <2.0 (<2.0) mg/dL Ur Leukocyte Esterase Negative (Negative) Acetone, Qual (Negative) 06/07/22 06/07/22 06/07/22 Range/Units 13:26 13:26 13:26 WBC (3.8-10.6) k/uL RBC (4.30-5.90) m/uL Hgb (13.0-17.5) gm/dL Hct (39.0-53.0) % MCV (80.0-100.0) fL MCH (25.0-35.0) pg MCHC (31.0-37.0) g/dL RDW (11.5-15.5) % Plt Count (150-450) k/uL MPV Neutrophils % % Lymphocytes % % Monocytes % % Eosinophils % % Basophils % % Neutrophils # (1.3-7.7) k/uL Lymphocytes # (1.0-4.8) k/uL Monocytes # (0-1.0) k/uL Eosinophils # (0-0.7) k/uL Basophils # (0-0.2) k/uL VBG pH 7.41 (7.31-7.41) VBG pCO2 26 L (37-51) mmHg VBG HCO3 16 L (24-28) mmol/L Sodium 136 L (137-145) mmol/L Potassium 4.8 (3.5-5.1) mmol/L Chloride 97 L (98-107) mmol/L Carbon Dioxide 12 L (22-30) mmol/L Anion Gap 27 mmol/L BUN 23 H (9-20) mg/dL Creatinine 0.80 (0.66-1.25) mg/dL Est GFR (CKD-EPI)AfAm >90 (>60 ml/min/1.73 sqM) Est GFR (CKD-EPI)NonAf >90 (>60 ml/min/1.73 sqM) Glucose 570 H* (74-99) mg/dL POC Glucose (mg/dL) (70-110) mg/dL POC Glu Custom Applicator ID Lactic Ac Sepsis Rflx Plasma Lactic Acid Len 2.7 H* (0.7-2.0) mmol/L Calcium 9.3 (8.4-10.2) mg/dL Total Bilirubin 1.2 (0.2-1.3) mg/dL AST 15 L (17-59) U/L ALT 18 (4-49) U/L Alkaline Phosphatase 105 (38-126) U/L Total Protein 7.0 (6.3-8.2) g/dL Albumin 4.7 (3.5-5.0) g/dL Lipase 103 (23-300) U/L Urine Color Urine Appearance (Clear) Urine pH (5.0-8.0) Ur Specific [place] (1.001-1.035) Urine Protein (Negative) Urine Glucose (UA) (Negative) Urine Ketones (Negative) Urine Blood (Negative) Urine Nitrite (Negative) Urine Bilirubin (Negative) Urine Urobilinogen (<2.0) mg/dL Ur Leukocyte Esterase (Negative) Acetone, Qual Positive (Negative) 06/07/22 Range/Units 14:26 WBC (3.8-10.6) k/uL RBC (4.30-5.90) m/uL Hgb (13.0-17.5) gm/dL Hct (39.0-53.0) % MCV (80.0-100.0) fL MCH (25.0-35.0) pg MCHC (31.0-37.0) g/dL RDW (11.5-15.5) % Plt Count (150-450) k/uL MPV Neutrophils % % Lymphocytes % % Monocytes % % Eosinophils % % Basophils % % Neutrophils # (1.3-7.7) k/uL Lymphocytes # (1.0-4.8) k/uL Monocytes # (0-1.0) k/uL Eosinophils # (0-0.7) k/uL Basophils # (0-0.2) k/uL VBG pH (7.31-7.41) VBG pCO2 (37-51) mmHg VBG HCO3 (24-28) mmol/L Sodium (137-145) mmol/L Potassium (3.5-5.1) mmol/L Chloride (98-107) mmol/L Carbon Dioxide (22-30) mmol/L Anion Gap mmol/L BUN (9-20) mg/dL Creatinine (0.66-1.25) mg/dL Est GFR (CKD-EPI)AfAm (>60 ml/min/1.73 sqM) Est GFR (CKD-EPI)NonAf (>60 ml/min/1.73 sqM) Glucose (74-99) mg/dL POC Glucose (mg/dL) (70-110) mg/dL POC Glu Custom Applicator ID Lactic Ac Sepsis Rflx Y Plasma Lactic Acid Len (0.7-2.0) mmol/L Calcium (8.4-10.2) mg/dL Total Bilirubin (0.2-1.3) mg/dL AST (17-59) U/L ALT (4-49) U/L Alkaline Phosphatase (38-126) U/L Total Protein (6.3-8.2) g/dL Albumin (3.5-5.0) g/dL Lipase (23-300) U/L Urine Color Urine Appearance (Clear) Urine pH (5.0-8.0) Ur Specific [place] (1.001-1.035) Urine Protein (Negative) Urine Glucose (UA) (Negative) Urine Ketones (Negative) Urine Blood (Negative) Urine Nitrite (Negative) Urine Bilirubin (Negative) Urine Urobilinogen (<2.0) mg/dL Ur Leukocyte Esterase (Negative) Acetone, Qual (Negative) - EKG Data EKG Comments: EKG demonstrates sinus tachycardia with a rate of 125. SC interval 154. QRS 80. QTC 382. No acute ST segment elevations or depressions Critical Care Time Critical Care Time: Yes Critical Care Time: 35 minutes Disposition Clinical Impression: DKA (diabetic ketoacidoses) Disposition: ADMITTED IP TO THIS [facility] Condition: Stable Is patient prescribed a controlled substance at d/c from ED?: No Time of Disposition: 14:35 Decision to Admit Reason: Admit from EC Decision Date: 06/07/22 Decision Time: 14:35
[2022-06-07 14:37] LABS: Appearance,Urine Clear (Clear); Bilirubin,Urine Negative (Negative); Blood,Urine Negative (Negative); Color,Urine Colorless; Glucose,Urine (UA) 4+ (Negative); Leukocyte Esterase,Urine Negative (Negative); Nitrite,Urine Negative (Negative); PH, Urine 5.5 (5.0-8.0); Protein,Urine Negative (Negative); Specific Gravity,Urine 1.025 (1.001-1.035); Urobilinogen,Urine <2.0 mg/dL (<2.0)
[2022-06-07 14:54] LABS: Ketones,Urine 4+ (Negative)
[2022-06-07] MEDS: SODIUM CHLORIDE 0.9% 1,000 ML IV SCH ×3 (15:08→22:49)
[2022-06-07] MEDS: INSULIN REGULAR 100 UNIT in SODIUM CHLORIDE 0.9% 100 ML IV SCH (15:10)
[2022-06-07 15:28] LABS: Glucose,Whole Blood 468 mg/dL (70-110)
[2022-06-07] MEDS ORDERED: ONDANSETRON ODT 4 MG TAB PO PRN (16:14)
[2022-06-07 16:20] LABS: Glucose,Whole Blood 403 mg/dL (70-110)
[2022-06-07 17:13] LABS: African American GFR (CKD) >90 (>60 ml/min/1.73 sqM); Anion Gap 21 mmol/L; Blood Urea Nitrogen 22 mg/dL (9-20); Carbon Dioxide 14 mmol/L (22-30); Chloride 107 mmol/L (98-107); Glucose 371 mg/dL (74-99); Non-African American GFR(CKD) >90 (>60 ml/min/1.73 sqM); Potassium 4.4 mmol/L (3.5-5.1); Sodium 142 mmol/L (137-145)
[2022-06-07 17:20] LABS: Glucose,Whole Blood 324 mg/dL (70-110)
[2022-06-07 18:19] LABS: Glucose,Whole Blood 247 mg/dL (70-110)
[2022-06-07] MEDS: D5-0.45% NACL WITH KCL 20MEQ/L 1,000 ML IV SCH (18:57)
[2022-06-07 19:33] LABS: Glucose,Whole Blood 160 mg/dL (70-110)
[2022-06-07 20:33] LABS: Glucose,Whole Blood 131 mg/dL (70-110)
[2022-06-07 20:36] LABS: African American GFR (CKD) >90 (>60 ml/min/1.73 sqM); Anion Gap 7 mmol/L; Blood Urea Nitrogen 21 mg/dL (9-20); Carbon Dioxide 28 mmol/L (22-30); Chloride 108 mmol/L (98-107); Glucose 156 mg/dL (74-99); Non-African American GFR(CKD) >90 (>60 ml/min/1.73 sqM); Potassium 4.4 mmol/L (3.5-5.1); Sodium 143 mmol/L (137-145)
[2022-06-07 21:37] LABS: Glucose,Whole Blood 117 mg/dL (70-110)
[2022-06-07] MEDS ORDERED: INSULIN DETEMIR (LEVEMIR) 100 UNIT/ML SYR SQ SCH (22:30)
[2022-06-07 22:33] LABS: Glucose,Whole Blood 102 mg/dL (70-110)
[2022-06-07] MEDS: GABAPENTIN 300 MG CAP PO SCH (22:43)
[2022-06-08 02:05] LABS: Glucose,Whole Blood 112 mg/dL (70-110)
[2022-06-08] MEDS: D5-0.45% NACL WITH KCL 20MEQ/L 1,000 ML IV SCH ×2 (04:58→07:01)
[2022-06-08] MEDS: SODIUM CHLORIDE 0.9% 1,000 ML IV SCH ×2 (06:36→12:33)
[2022-06-08] MEDS: INSULIN REGULAR 100 UNIT in SODIUM CHLORIDE 0.9% 100 ML IV SCH (07:02)
[2022-06-08 07:16] LABS: Glucose,Whole Blood 95 mg/dL (70-110)
[2022-06-08] MEDS: INSULIN ASPART (NovoLOG) 100 UNIT/ML VIAL SQ SCH ×3 (08:12→13:13)
[2022-06-08] MEDS: GABAPENTIN 300 MG CAP PO SCH (08:12)
[2022-06-08 09:46] LABS: Potassium 4.1 mmol/L (3.5-5.1)
[2022-06-08 09:47] LABS: African American GFR (CKD) >90 (>60 ml/min/1.73 sqM); Anion Gap 8 mmol/L; Blood Urea Nitrogen 13 mg/dL (9-20); Carbon Dioxide 28 mmol/L (22-30); Chloride 93 mmol/L (98-107); Non-African American GFR(CKD) >90 (>60 ml/min/1.73 sqM); Phosphorus 3.1 mg/dL (2.5-4.5); Sodium 129 mmol/L (137-145)
[2022-06-08 11:14] VITALS: RESP 12
[2022-06-08 12:10] LABS: Glucose,Whole Blood 90 mg/dL (70-110)
[2022-06-08 12:55] VITALS: BMI 17.9
[2022-06-08 13:19] VITALS: BP 122/85; PULSE 89; TEMP 97.2
--- NOTE | 2022-06-08 16:48 | HP ---
HISTORY AND PHYSICAL CHIEF COMPLAINT: DKA. HISTORY OF PRESENT ILLNESS: This is another of many admissions for this 26-year-old white male. He just left the hospital several days ago. He is homeless. He presented back to the emergency room in [facility] once again. Blood sugar was 570. Gap was 27. Bicarb was 12. REVIEW OF SYSTEMS: Otherwise, unremarkable. He was lethargic and nauseated and was vomiting. Remainder of his history is unchanged from several days ago. PHYSICAL EXAMINATION: VITAL SIGNS: Blood pressure is 114/64 with a pulse of 93, respirations 39, he is afebrile. GENERAL: Appeared to be lethargic, dehydrated, and somewhat disheveled. HEAD, EARS, EYES, NOSE, MOUTH, AND THROAT: Normal except for the finding for dehydration. CHEST: Clear CARDIAC: Demonstrates sinus tachycardia. ABDOMEN: Flat and soft, and there are no masses. EXTREMITIES: Normal. NEUROLOGIC: He is intact. IMPRESSION: He is admitted to the hospital with diagnoses of: 1. Diabetic ketoacidosis. 2. Uncontrolled type 1 insulin-dependent diabetes mellitus secondary to noncompliance. 3. Depression. PLAN: Bedrest and management of his ketoacidosis once again. This patient was in the hospital something like 59 times last year and has been in the hospital 7 or 8 times already this year. The most appropriate management for him at this time would be the permanent public guardian. MMODL / IJN: [id number] /
--- NOTE | 2022-06-08 18:39 | DS ---
DISCHARGE SUMMARY CHIEF COMPLAINT: DKA. HISTORY OF PRESENT ILLNESS AND PHYSICAL EXAMINATION: Details of his history and physical can be found in the initial workup. LABORATORY STUDIES: While he was in the hospital, he had laboratory studies, details of which can be found in the laboratory section of his chart. COURSE IN THE HOSPITAL: After admission, he was placed on bedrest, started on intravenous fluids and management of his DKA. He was improved and doing well, and as per his usual behavior, he signed out AMA. This patient should be seen by Psychiatry in his next admission and placed on a 72-hour hold and a guardian application filed due to his history of depression, occasional suicidal behavior and thoughts as well as being medically incompetent. MMODL / IJN: [id number] /
== END 2022-06-08 14:45 | disposition left against medical advice (07) | DRG 639 ==
LOC: EC 13:07 → 3SCARD 14:37
PROVIDERS: ADMIT Family Medicine; ATTEND Family Medicine
DX: E10.10 Type 1 diabetes mellitus with ketoacidosis without coma (principal); E10.43 Type 1 diabetes mellitus with diabetic autonomic (poly)neuropathy; F32.A Depression, unspecified; K31.84 Gastroparesis; J45.909 Unspecified asthma, uncomplicated; T38.3X6A Underdosing of insulin and oral hypoglycemic [antidiabetic] drugs, initial encounter; Z53.29 Procedure and treatment not carried out because of patient's decision for other reasons; Z79.4 Long term (current) use of insulin; Z28.310 Unvaccinated for COVID-19; Z28.21 Immunization not carried out because of patient refusal; F17.290 Nicotine dependence, other tobacco product, uncomplicated; L30.9 Dermatitis, unspecified; Z91.128 Patient's intentional underdosing of medication regimen for other reason
CPT/HCPCS: 36415; 80051; 80053; 81003; 82009; 82565; 82803; 82947; 83605; 83690; 84100; 84520; 85025; 93005; 96360; 99291

== ENCOUNTER 2022-06-09 15:43 | Inpatient (IN) | payer OTHER ==
[2022-06-09 15:51] VITALS: BP 147/98; PULSE 88; RESP 19; TEMP 97.7
[2022-06-09 15:53] LABS: Glucose,Whole Blood 424 mg/dL (70-110)
[2022-06-09] MEDS ORDERED: SODIUM CHLORIDE 0.9% 1,000 ML IV STA (15:57)
--- NOTE | 2022-06-09 16:10 | ED ---
Abdominal Pain HPI - General Chief Complaint: Abdominal Pain Stated Complaint: HYPERGLYCEMIC Time Seen by Provider: 06/09/22 15:54 Source: patient, EMS, RN notes reviewed, old records reviewed Mode of arrival: EMS Limitations: no limitations - History of Present Illness Initial Comments: 26-year-old male presents via EMS with complaints of abdominal pain and vomiting. Patient curled up on cart on his left side in position, smells strongly of marijuana. Hesitant to provide information for visit today. According to medical records he signed out AGAINST MEDICAL ADVICE yesterday. He is alert and oriented 4. Patient states that he is homeless but did stay with a friend last night. This morning woke up and had Romansh toast and took his Leve lupe and then started with the abdominal pain and vomiting again. MD Complaint: abdominal pain -: days(s) (1) Location: epigastric Radiation: none Consistency: constant Worsens With: vomiting - Related Data Home Medications Medication Instructions Recorded Confirmed INSULIN ASPART (NovoLOG) [NovoLOG 10 unit SQ AC-TID 06/29/21 06/09/22 (formulary)] Gabapentin 600 mg PO TID 12/19/21 06/09/22 Insulin Detemir (Levemir) [Levemir] 25 unit SQ DAILY 04/11/22 06/09/22 Previous Rx's Medication Instructions Recorded Ondansetron Odt [Zofran ODT] 4 mg PO Q8HR PRN #10 tab 05/26/22 Allergies Allergy/AdvReac Type Severity Reaction Status Date / Time No Known Allergies Allergy Verified 06/07/22 14:28 Review of Systems ROS Statement: Those systems with pertinent positive or pertinent negative responses have been documented in the HPI. ROS Other: All systems not noted in ROS Statement are negative. Past Medical History Past Medical History: Asthma, Diabetes Mellitus, Neurologic Disorder, Skin Disorder Additional Past Medical History / Comment(s): IDDM type I, neuropathy bilateral feet, DKA, eczema. History of Any Multi-Drug Resistant Organisms: None Reported Past Surgical History: Adenoidectomy Additional Past Surgical History / Comment(s): 2002 Past Anesthesia/Blood Transfusion Reactions: No Reported Reaction Past Psychological History: Anxiety, Depression Smoking Status: Current every day smoker, Vaper Past Alcohol Use History: None Reported Past Drug Use History: None Reported - Past Family History Mother Family Medical History: CVA/TIA Additional Family Medical History / Comment(s): TIA Father Family Medical History: Hyperlipidemia, Hypertension Additional Family Medical History / Comment(s): . General Exam Limitations: no limitations General appearance: alert, in no apparent distress Head exam: Present: atraumatic Eye exam: Absent: scleral icterus, conjunctival injection, periorbital swelling ENT exam: Present: mucous membranes dry Neck exam: Absent: tenderness, meningismus Respiratory exam: Absent: respiratory distress, accessory muscle use Cardiovascular Exam: Present: regular rate GI/Abdominal exam: Present: soft, tenderness (epigastric). Absent: rigid Extremities exam: Present: normal capillary refill. Absent: tenderness, pedal edema, calf tenderness Back exam: Present: normal inspection. Absent: rash noted Neurological exam: Present: alert, oriented X3 Psychiatric exam: Present: normal affect, normal mood Skin exam: Present: warm, dry, normal color. Absent: rash, cyanosis, diaphoretic, petechiae, pallor Course Vital Signs 06/09/22 15:48 Temperature 97.7 F Pulse Rate 88 Respiratory 19 Rate Blood Pressure 147/98 O2 Sat by Pulse 100 Oximetry Medical Decision Making - Medical Decision Making According to medical records patient left AGAINST MEDICAL ADVICE yesterday after a DKA admit. Today, Blood glucose 435, anion gap 11, serum acetone positive. Sodium correction for hyperglycemia 138. Patient was given 2 L of IV fluids and 4 units IV insulin. He was given droperidol for his nausea vomiting. Case discussed with Dr. Anaya he will be admitted for DKA. Social work and psychiatry consulted regarding patient's ability to care for himself and self admitted homelessness. Was pt. sent in by a medical professional or institution? @ -No Did you speak to anyone other than the patient for history? @ -EMS Did you review nursing and triage notes? @ -yes I agree Were old charts reviewed? @ -Yes previous admissions and labs Differential Diagnosis? @ -Differential Abdominal Pain Men: Appendicitis, cholecystitis, diverticulosis, ischemic bowel, pancreatitis, hepatitis, UTI, gastroenteritis, AAA, incarcerated hernia, bowel obstruction, constipation, inflammatory bowel, hepatitis, peptic ulcer disease, splenic infarction, perforated viscus, testicular torsion, this is not meant to be an all-inclusive list What testing was considered but not performed? (CT, X-rays, U/S, labs)? Why? @No What meds were considered but not given? Why? @ -no Did you discuss the management of the patient with other professionals? @ -no Did you reconcile home meds? @ -no Was smoking cessation discussed for >3mins.? @ -yes marijuana Was critical care preformed (if so, how long)? @ -no Were there social determinants of health that impacted care today? How? (Homelessness, low income, unemployed, alcoholism, drug addiction, transportation, low edu. Level, literacy, decrease access to med. care, correction, rehab)? @ -homelessness Was there de-escalation of care discussed even if they declined? (Discuss DNR or withdrawal of care, Hospice)? @ -no What co-morbidities impacted this encounter? (DM, HTN, Smoking, COPD, CAD, Cancer, CVA, Hep., AIDS, mental health diagnosis, sleep apnea, morbid obesity)? @ -DM, asthma, neuropathy, smoking Was patient admitted / discharged? @ -admitted Undiagnosed new problem with uncertain prognosis? @ -[none] Drug Therapy requiring intensive monitoring for toxicity (Heparin, Nitro, I nsulin, Cardizem)? @ -yes insulin Were any procedures done? @ -no Diagnosis/symptom? @ DKA Acute, or Chronic, or Acute on Chronic? @ -acute on chronic Uncomplicated (without systemic symptoms) or Complicated (systemic symptoms)? @ -Complicated Side effects of treatment? @ -[none] Exacerbation, Progression, or Severe Exacerbation] @ -[no] Poses a threat to life or bodily function? @ -yes DKA - Lab Data Result diagrams: 06/09/22 16:27 06/09/22 16:27 Lab Results 06/09/22 06/09/22 06/09/22 Range/Units 15:51 16:27 16:27 WBC 6.5 (3.8-10.6) k/uL RBC 4.37 (4.30-5.90) m/uL Hgb 13.7 (13.0-17.5) gm/dL Hct 39.8 (39.0-53.0) % MCV 91.1 (80.0-100.0) fL MCH 31.3 (25.0-35.0) pg MCHC 34.4 (31.0-37.0) g/dL RDW 12.6 (11.5-15.5) % Plt Count 180 (150-450) k/uL MPV 8.1 Neutrophils % 71 % Lymphocytes % 21 % Monocytes % 5 % Eosinophils % 2 % Basophils % 1 % Neutrophils # 4.6 (1.3-7.7) k/uL Lymphocytes # 1.4 (1.0-4.8) k/uL Monocytes # 0.3 (0-1.0) k/uL Eosinophils # 0.1 (0-0.7) k/uL Basophils # 0.1 (0-0.2) k/uL Sodium 133 L (137-145) mmol/L Potassium 5.6 H (3.5-5.1) mmol/L Chloride 95 L (98-107) mmol/L Carbon Dioxide 27 (22-30) mmol/L Anion Gap 11 mmol/L BUN 15 (9-20) mg/dL Creatinine 0.60 L (0.66-1.25) mg/dL Est GFR (CKD-EPI)AfAm >90 (>60 ml/min/1.73 sqM) Est GFR (CKD-EPI)NonAf >90 (>60 ml/min/1.73 sqM) Glucose 435 H (74-99) mg/dL POC Glucose (mg/dL) 424 H (70-110) mg/dL POC Glu Electric Meter Setter ID Susan Piña Plasma Lactic Acid Len (0.7-2.0) mmol/L Calcium 8.6 (8.4-10.2) mg/dL Total Bilirubin 0.8 (0.2-1.3) mg/dL AST 25 (17-59) U/L ALT 20 (4-49) U/L Alkaline Phosphatase 80 (38-126) U/L Total Protein 6.5 (6.3-8.2) g/dL Albumin 4.2 (3.5-5.0) g/dL Amylase 64 (30-110) U/L Lipase 95 (23-300) U/L Acetone, Qual Positive (Negative) 06/09/22 Range/Units 16:27 WBC (3.8-10.6) k/uL RBC (4.30-5.90) m/uL Hgb (13.0-17.5) gm/dL Hct (39.0-53.0) % MCV (80.0-100.0) fL MCH (25.0-35.0) pg MCHC (31.0-37.0) g/dL RDW (11.5-15.5) % Plt Count (150-450) k/uL MPV Neutrophils % % Lymphocytes % % Monocytes % % Eosinophils % % Basophils % % Neutrophils # (1.3-7.7) k/uL Lymphocytes # (1.0-4.8) k/uL Monocytes # (0-1.0) k/uL Eosinophils # (0-0.7) k/uL Basophils # (0-0.2) k/uL Sodium (137-145) mmol/L Potassium (3.5-5.1) mmol/L Chloride (98-107) mmol/L Carbon Dioxide (22-30) mmol/L Anion Gap mmol/L BUN (9-20) mg/dL Creatinine (0.66-1.25) mg/dL Est GFR (CKD-EPI)AfAm (>60 ml/min/1.73 sqM) Est GFR (CKD-EPI)NonAf (>60 ml/min/1.73 sqM) Glucose (74-99) mg/dL POC Glucose (mg/dL) (70-110) mg/dL POC Glu Electric Meter Setter ID Plasma Lactic Acid Len 1.3 (0.7-2.0) mmol/L Calcium (8.4-10.2) mg/dL Total Bilirubin (0.2-1.3) mg/dL AST (17-59) U/L ALT (4-49) U/L Alkaline Phosphatase (38-126) U/L Total Protein (6.3-8.2) g/dL Albumin (3.5-5.0) g/dL Amylase (30-110) U/L Lipase (23-300) U/L Acetone, Qual (Negative) Disposition Clinical Impression: DKA (diabetic ketoacidosis) Disposition: ADMITTED IP TO THIS HOSP Referrals: Brown Valenzuela MD [Primary Care Provider] - 1-2 days Decision Date: 06/09/22 Decision Time: 17:00
[2022-06-09 16:48] LABS: ALT 20 U/L (4-49); AST 25 U/L (17-59); African American GFR (CKD) >90 (>60 ml/min/1.73 sqM); Albumin 4.2 g/dL (3.5-5.0); Alkaline Phosphatase 80 U/L (38-126); Amylase 64 U/L (30-110); Anion Gap 11 mmol/L; Basophils # (A) 0.1 k/uL (0-0.2); Basophils % (A) 1 %; Blood Urea Nitrogen 15 mg/dL (9-20); Calcium 8.6 mg/dL (8.4-10.2); Carbon Dioxide 27 mmol/L (22-30); Chloride 95 mmol/L (98-107); Eosinophils # (A) 0.1 k/uL (0-0.7); Eosinophils % (A) 2 %; Glucose 435 mg/dL (74-99); HCT 39.8 % (39.0-53.0); HGB 13.7 gm/dL (13.0-17.5); Lipase 95 U/L (23-300); Lymphocytes # (A) 1.4 k/uL (1.0-4.8); Lymphocytes % (A) 21 %; MCH 31.3 pg (25.0-35.0); MCHC 34.4 g/dL (31.0-37.0); MCV 91.1 fL (80.0-100.0); Mean Platelet Volume 8.1; Monocytes # (A) 0.3 k/uL (0-1.0); Monocytes % (A) 5 %; Neutrophils # (A) 4.6 k/uL (1.3-7.7); Neutrophils % (A) 71 %; Non-African American GFR(CKD) >90 (>60 ml/min/1.73 sqM); Platelet Count 180 k/uL (150-450); RBC 4.37 m/uL (4.30-5.90); RDW 12.6 % (11.5-15.5); Sodium 133 mmol/L (137-145); Total Bilirubin 0.8 mg/dL (0.2-1.3); Total Protein 6.5 g/dL (6.3-8.2); WBC 6.5 k/uL (3.8-10.6)
[2022-06-09 16:54] LABS: Potassium 5.6 mmol/L (3.5-5.1)
[2022-06-09] MEDS ORDERED: INSULIN REGULAR 100 UNIT/ML VIAL (IV) IV ONE (16:54)
[2022-06-09] MEDS ORDERED: SODIUM CHLORIDE 0.9% 1,000 ML IV ONE (16:58)
[2022-06-09] MEDS ORDERED: SODIUM CHLORIDE 0.9% 1,000 ML IV SCH (17:15)
[2022-06-09] MEDS ORDERED: INSULIN ASPART (NovoLOG) 100 UNIT/ML VIAL SQ SCH (17:30)
[2022-06-09 18:27] LABS: Glucose,Whole Blood 269 mg/dL (70-110)
[2022-06-09] MEDS ORDERED: GABAPENTIN 300 MG CAP PO SCH (22:00)
[2022-06-10] MEDS ORDERED: INSULIN DETEMIR (LEVEMIR) 100 UNIT/ML SYR SQ SCH (07:00)
--- NOTE | 2022-06-10 19:19 | DS ---
DISCHARGE SUMMARY CHIEF COMPLAINT: DKA. HISTORY OF PRESENT ILLNESS AND PHYSICAL EXAMINATION: Details of this man's history and physical can be found in the initial workup. LABORATORY STUDIES: While he was in the hospital, he had laboratory studies in the emergency room, details of which can be found in his ER records. COURSE IN THE HOSPITAL: After admission, he was to be placed in ICU for DKA management and then he signed himself out against medical advice. FINAL DIAGNOSES: 1. Diabetic ketoacidosis. 2. Personality disorder. 3. Depression. 4. Dehydration. OPERATIONS: None. CONSULTATIONS: None. He is improved. MMODL / IJN: [id number] /
--- NOTE | 2022-06-10 19:49 | HP ---
HISTORY AND PHYSICAL CHIEF COMPLAINT: DKA. HISTORY OF PRESENT ILLNESS: This is another recent admission for this young man. He is in and out of the hospital almost on an every other day basis. He was just in a few days ago and then signed out AMA, which he usually does. Prior to that last week he was seen by Psychiatry because he stated he was depressed and wanted to kill himself. He was released by Psychiatry. He comes back in now with DKA. He leaves the hospital, does not take his insulin, drinks alcohol, and then comes back. He basically has no place to live. REVIEW OF SYSTEMS: Unremarkable. Slightly lethargic. Remainder of history is unchanged from his recent admitting and discharge summaries. PHYSICAL EXAMINATION: VITAL SIGNS: Blood pressure is 118/78 with a pulse of 99, respirations of 35, and he is afebrile. GENERAL: He appeared to be disheveled, slender, and is slightly lethargic. HEAD, EARS, EYES, NOSE, MOUTH AND THROAT: Normal. CHEST: Clear. CARDIAC: Normal. ABDOMEN: Soft, nontender. EXTREMITIES: Normal. NEUROLOGICAL: He is intact. IMPRESSION: 1. Diabetic ketoacidosis. 2. Depression. 3. Uncontrolled type 1 insulin-dependent diabetes mellitus. 4. Alcoholism. 5. Dehydration. PLAN: 1. Bedrest. 2. Address his DKA. 3. Psychiatric consult. I would favor he is being held in the hospital to allow Manager Dialysis long enough to proceed with guardianship arrangements. He is clearly a danger to himself and is both mentally incompetent. MMODL / IJN: [id number] /
== END 2022-06-09 18:41 | disposition left against medical advice (07) | DRG 639 ==
LOC: EC 15:43 → 3SCARD 17:49
PROVIDERS: ADMIT Family Medicine; ATTEND Family Medicine
DX: E10.10 Type 1 diabetes mellitus with ketoacidosis without coma (principal); E86.0 Dehydration; F17.290 Nicotine dependence, other tobacco product, uncomplicated; F32.A Depression, unspecified; Z79.899 Other long term (current) drug therapy; E11.42 Type 2 diabetes mellitus with diabetic polyneuropathy; F60.9 Personality disorder, unspecified; L30.9 Dermatitis, unspecified; F41.9 Anxiety disorder, unspecified; Z79.4 Long term (current) use of insulin; Z53.29 Procedure and treatment not carried out because of patient's decision for other reasons
CPT/HCPCS: 36415; 80053; 82009; 82150; 83605; 83690; 85025; 96361; 96374; 99285

== ENCOUNTER 2022-06-11 16:35 | Inpatient (IN) | payer OTHER ==
[2022-06-11 16:52] LABS: Glucose,Whole Blood 497 mg/dL (70-110)
[2022-06-11] MEDS ORDERED: SODIUM CHLORIDE 0.9% 2,000 ML IV STA (17:01)
[2022-06-11] MEDS ORDERED: METOCLOPRAMIDE 5 MG/ML 2 ML VIAL IVP STA (17:01)
[2022-06-11] MEDS ORDERED: FAMOTIDINE 20 MG/2 ML VIAL IV STA (17:01)
[2022-06-11] MEDS ORDERED: LORazepam 2 MG/ML INJ IV STA (17:01)
[2022-06-11] MEDS ORDERED: CAPSAICIN 0.025% CREAM 60 GM TUBE TOPICAL STA (17:02)
--- NOTE | 2022-06-11 17:06 | ED ---
General Adult HPI - General Chief complaint: Nausea/Vomiting/Diarrhea Stated complaint: hyperglycemia Time Seen by Provider: 06/11/22 16:38 Source: patient, RN notes reviewed Mode of arrival: EMS Limitations: no limitations - History of Present Illness Initial comments: Patient is a pleasant 26-year-old male well-known to the hospital presenting for nausea vomiting. Patient has reported hyperglycemia. Patient is known to be noncompliant with his medications. Patient states he is not able to take them recently. Patient does admit to using marijuana recently. - Related Data Home Medications Medication Instructions Recorded Confirmed INSULIN ASPART (NovoLOG) [NovoLOG 10 unit SQ AC-TID 06/29/21 06/11/22 (formulary)] Gabapentin 600 mg PO TID 12/19/21 06/11/22 Insulin Detemir (Levemir) [Levemir] 25 unit SQ DAILY 04/11/22 06/11/22 Previous Rx's Medication Instructions Recorded Ondansetron Odt [Zofran ODT] 4 mg PO Q8HR PRN #10 tab 05/26/22 Allergies Allergy/AdvReac Type Severity Reaction Status Date / Time No Known Allergies Allergy Verified 06/11/22 18:21 Review of Systems ROS Statement: Those systems with pertinent positive or pertinent negative responses have been documented in the HPI. ROS Other: All systems not noted in ROS Statement are negative. Constitutional: Denies: fever Eyes: Denies: eye pain ENT: Denies: ear pain Respiratory: Denies: cough Cardiovascular: Denies: chest pain Endocrine: Denies: fatigue Gastrointestinal: Reports: abdominal pain, nausea, vomiting Genitourinary: Denies: dysuria Musculoskeletal: Denies: back pain Skin: Denies: rash Neurological: Denies: weakness (Fractures of the fourth) Past Medical History Past Medical History: Asthma, Diabetes Mellitus, Neurologic Disorder, Skin Disorder Additional Past Medical History / Comment(s): IDDM type I, neuropathy bilateral feet, DKA, eczema. History of Any Multi-Drug Resistant Organisms: None Reported Past Surgical History: Adenoidectomy Additional Past Surgical History / Comment(s): 2002 Past Anesthesia/Blood Transfusion Reactions: No Reported Reaction Past Psychological History: Anxiety, Depression Smoking Status: Current every day smoker, Vaper Past Alcohol Use History: None Reported Past Drug Use History: None Reported - Past Family History Mother Family Medical History: CVA/TIA Additional Family Medical History / Comment(s): TIA Father Family Medical History: Hyperlipidemia, Hypertension Additional Family Medical History / Comment(s): . General Exam Limitations: no limitations General appearance: alert, in no apparent distress Head exam: Present: normocephalic Eye exam: Present: normal appearance ENT exam: Present: mucous membranes dry Neck exam: Present: normal inspection Respiratory exam: Present: normal lung sounds bilaterally (Third metatarsals with a little bit of) Cardiovascular Exam: Present: regular rate, normal rhythm Expanded Peripheral pulses: 2+: Posterior Tibialis (R), Posterior Tibialis (L) GI/Abdominal exam: Present: soft. Absent: tenderness Extremities exam: Present: normal inspection Neurological exam: Present: alert Psychiatric exam: Present: normal affect, normal mood Skin exam: Present: normal color Course Vital Signs 06/11/22 06/11/22 06/11/22 16:52 17:20 17:56 Temperature 97.8 F Pulse Rate 116 H 118 H 117 H Respiratory 18 18 16 Rate Blood Pressure 107/78 107/71 110/75 O2 Sat by Pulse 98 95 98 Oximetry 06/11/22 18:00 Temperature Pulse Rate 110 H Respiratory 14 Rate Blood Pressure 110/70 O2 Sat by Pulse 98 Oximetry Medical Decision Making - Medical Decision Making Was pt. sent in by a medical professional or institution (J[facility] Lucero, RECRUITING CONSULTANT, urgent care, hospital, or [facility]...) When possible be specific @ -[No] Did you speak to anyone other than the patient for history (EMS, parent, family, police, friend...)? What history was obtained from this source @ -[No] Did you review nursing and triage notes (agree or disagree)? Why? @ -[I reviewed and agree with nursing and triage notes] Were old charts reviewed (outside hosp., previous admission, EMS record, old EKG, old radiological studies, urgent care reports/EKG's, [facility] records)? Report findings @ -Previous admission reviewed Differential Diagnosis (chest pain, altered mental status, abdominal pain women, abdominal pain men, vaginal bleeding, weakness, fever, dyspnea, syncope, headache, dizziness, GI bleed, back pain, seizure, CVA, palpatations, mental health)? @ -Differential Abdominal Pain Men: Appendicitis, cholecystitis, diverticulosis, ischemic bowel, pancreatitis, hepatitis, UTI, gastroenteritis, AAA, incarcerated hernia, bowel obstruction, c onstipation, inflammatory bowel, hepatitis, peptic ulcer disease, splenic infarction, perforated viscus, testicular torsion, this is not meant to be an all-inclusive list EKG interpreted by me (3pts min.). @ -[As above] X-rays interpreted by me (1pt min.). @ -[None done] CT interpreted by me (1pt min.). @ -[None done] U/S interpreted by me (1pt. min.). @ -[None done] What testing was considered but not performed or refused? (CT, X-rays, U/S, labs)? Why? @ -[None] What meds were considered but not given or refused? Why? @ -Patient will need insulin Did you discuss the management of the patient with other professionals (professionals i.e. , PA, RECRUITING CONSULTANT, lab, RT, psych nurse, social work supervisor, behavioral analyst, teacher, commercial account officer, binder caser)? Give summary @ -Dr. Valenzuela paged for admission. Was smoking cessation discussed for >3mins.? @ -[No] Was critical care preformed (if so, how long)? @ -Yesterday 2 minutes Were there social determinants of health that impacted care today? How? (Homelessness, low income, unemployed, alcoholism, drug addiction, transportation, low edu. Level, literacy, decrease access to med. care, usp, rehab)? @ -Patient has chronic noncompliance with recurrent admissions Was there de-escalation of care discussed even if they declined (Discuss DNR or withdrawal of care, Hospice)? DNR status @ -[No] What co-morbidities impacted this encounter? (DM, HTN, Smoking, COPD, CAD, Cancer, CVA, ARF, Chemo, Hep., AIDS, mental health diagnosis, sleep apnea, morbid obesity)? @ -Chronic severe diabetes with noncompliance, poorly managed Was patient admitted / discharged? Hospital course, mention meds given and route, prescriptions, significant lab abnormalities, going to OR and other pertinent info. @ -Patient reevaluated and updated. Dr. Valenzuela paged for admission of this pa tient. Patient will receive IV insulin and DKA protocol. Undiagnosed new problem with uncertain prognosis? @ -[No] Drug Therapy requiring intensive monitoring for toxicity (Heparin, Nitro, Insulin, Cardizem)? @ -Patient will be monitoring for IV insulin infusion Were any procedures done? @ -[No] Diagnosis/symptom? @ -Acute DKA Acute, or Chronic, or Acute on Chronic? @ -Acute on chronic Uncomplicated (without systemic symptoms) or Complicated (systemic symptoms)? @ -Complicated by acidosis Side effects of treatment? @ -[No] Exacerbation, Progression, or Severe Exacerbation? @ -[severe exacerbation o] Poses a threat to life or bodily function? How? (Chest pain, [place], [place], pneumonia, PE, COPD, DKA, ARF, appy, cholecystitis, CVA, Diverticulitis, Homicidal, Suicidal, threat to staff... and all critical care pts) @ -Severe acidosis does pose a threat to life and bodily function. - Lab Data Result diagrams: 06/11/22 17:04 06/11/22 17:04 Lab Results 06/11/22 06/11/22 06/11/22 Range/Units 16:50 17:04 17:04 WBC 14.2 H (3.8-10.6) k/uL RBC 4.85 (4.30-5.90) m/uL Hgb 15.0 (13.0-17.5) gm/dL Hct 45.2 (39.0-53.0) % MCV 93.1 (80.0-100.0) fL MCH 30.9 (25.0-35.0) pg MCHC 33.2 (31.0-37.0) g/dL RDW 12.8 (11.5-15.5) % Plt Count 399 D (150-450) k/uL MPV 7.5 Neutrophils % 89 % Lymphocytes % 8 % Monocytes % 2 % Eosinophils % 0 % Basophils % 0 % Neutrophils # 12.6 H (1.3-7.7) k/uL Lymphocytes # 1.2 (1.0-4.8) k/uL Monocytes # 0.3 (0-1.0) k/uL Eosinophils # 0.0 (0-0.7) k/uL Basophils # 0.0 (0-0.2) k/uL Sodium 139 (137-145) mmol/L Potassium 5.6 H (3.5-5.1) mmol/L Chloride 97 L (98-107) mmol/L Carbon Dioxide 7 L* (22-30) mmol/L Anion Gap 35 mmol/L BUN 21 H (9-20) mg/dL Creatinine 1.07 (0.66-1.25) mg/dL Est GFR (CKD-EPI)AfAm >90 (>60 ml/min/1.73 sqM) Est GFR (CKD-EPI)NonAf >90 (>60 ml/min/1.73 sqM) Glucose 581 H* (74-99) mg/dL POC Glucose (mg/dL) 497 H (70-110) mg/dL POC Glu Psychiatric Arnp ID Marcus Coles Calcium 9.7 (8.4-10.2) mg/dL Total Bilirubin 0.9 (0.2-1.3) mg/dL AST 18 (17-59) U/L ALT 21 (4-49) U/L Alkaline Phosphatase 109 (38-126) U/L Total Protein 7.6 (6.3-8.2) g/dL Albumin 5.1 H (3.5-5.0) g/dL Amylase 54 (30-110) U/L Lipase 32 (23-300) U/L Acetone, Qual Positive (Negative) 06/11/22 Range/Units 17:55 WBC (3.8-10.6) k/uL RBC (4.30-5.90) m/uL Hgb (13.0-17.5) gm/dL Hct (39.0-53.0) % MCV (80.0-100.0) fL MCH (25.0-35.0) pg MCHC (31.0-37.0) g/dL RDW (11.5-15.5) % Plt Count (150-450) k/uL MPV Neutrophils % % Lymphocytes % % Monocytes % % Eosinophils % % Basophils % % Neutrophils # (1.3-7.7) k/uL Lymphocytes # (1.0-4.8) k/uL Monocytes # (0-1.0) k/uL Eosinophils # (0-0.7) k/uL Basophils # (0-0.2) k/uL Sodium (137-145) mmol/L Potassium (3.5-5.1) mmol/L Chloride (98-107) mmol/L Carbon Dioxide (22-30) mmol/L Anion Gap mmol/L BUN (9-20) mg/dL Creatinine (0.66-1.25) mg/dL Est GFR (CKD-EPI)AfAm (>60 ml/min/1.73 sqM) Est GFR (CKD-EPI)NonAf (>60 ml/min/1.73 sqM) Glucose (74-99) mg/dL POC Glucose (mg/dL) 439 H (70-110) mg/dL POC Glu Psychiatric Arnp ID Marcus Coles Calcium (8.4-10.2) mg/dL Total Bilirubin (0.2-1.3) mg/dL AST (17-59) U/L ALT (4-49) U/L Alkaline Phosphatase (38-126) U/L Total Protein (6.3-8.2) g/dL Albumin (3.5-5.0) g/dL Amylase (30-110) U/L Lipase (23-300) U/L Acetone, Qual (Negative) Critical Care Time Critical Care Time: Yes Total Critical Care Time: 32 Disposition Clinical Impression: Diabetic ketoacidosis Disposition: ADMITTED IP TO THIS [facility] Condition: Serious Is patient prescribed a controlled substance at d/c from ED?: No Referrals: Brown Valenzuela MD [Primary Care Provider] - 1-2 days Time of Disposition: 19:33
[2022-06-11 17:08] LABS: Basophils % (A) 0 %; Eosinophils % (A) 0 %; HCT 45.2 % (39.0-53.0); Lymphocytes # (A) 1.2 k/uL (1.0-4.8); Lymphocytes % (A) 8 %; MCH 30.9 pg (25.0-35.0); MCHC 33.2 g/dL (31.0-37.0); MCV 93.1 fL (80.0-100.0); Mean Platelet Volume 7.5; Monocytes # (A) 0.3 k/uL (0-1.0); Monocytes % (A) 2 %; Neutrophils # (A) 12.6 k/uL (1.3-7.7); Neutrophils % (A) 89 %; RBC 4.85 m/uL (4.30-5.90); RDW 12.8 % (11.5-15.5); WBC 14.2 k/uL (3.8-10.6)
[2022-06-11 17:14] LABS: Platelet Count 399 k/uL (150-450)
[2022-06-11 17:19] LABS: ALT 21 U/L (4-49); AST 18 U/L (17-59); African American GFR (CKD) >90 (>60 ml/min/1.73 sqM); Albumin 5.1 g/dL (3.5-5.0); Alkaline Phosphatase 109 U/L (38-126); Amylase 54 U/L (30-110); Anion Gap 35 mmol/L; Blood Urea Nitrogen 21 mg/dL (9-20); Calcium 9.7 mg/dL (8.4-10.2); Chloride 97 mmol/L (98-107); Lipase 32 U/L (23-300); Non-African American GFR(CKD) >90 (>60 ml/min/1.73 sqM); Potassium 5.6 mmol/L (3.5-5.1); Sodium 139 mmol/L (137-145); Total Bilirubin 0.9 mg/dL (0.2-1.3); Total Protein 7.6 g/dL (6.3-8.2)
[2022-06-11 17:24] LABS: Carbon Dioxide 7 mmol/L (22-30); Glucose 581 mg/dL (74-99)
[2022-06-11 17:59] LABS: Glucose,Whole Blood 439 mg/dL (70-110)
[2022-06-11] MEDS ORDERED: SODIUM CHLORIDE 0.9% 1,000 ML IV ONE (19:34)
[2022-06-11] MEDS ORDERED: INSULIN REGULAR BOLUS (FROM DRIP BAG) IV ONE (19:34)
[2022-06-11] MEDS ORDERED: ONDANSETRON ODT 4 MG TAB PO PRN (20:26)
[2022-06-11 21:22] LABS: African American GFR (CKD) >90 (>60 ml/min/1.73 sqM); Anion Gap 28 mmol/L; Blood Urea Nitrogen 20 mg/dL (9-20); Chloride 107 mmol/L (98-107); Glucose 471 mg/dL (74-99); Non-African American GFR(CKD) >90 (>60 ml/min/1.73 sqM); Phosphorus 6.5 mg/dL (2.5-4.5); Sodium 141 mmol/L (137-145)
[2022-06-11 21:41] LABS: Potassium 6.3 mmol/L (3.5-5.1)
[2022-06-11 21:42] LABS: Carbon Dioxide 6 mmol/L (22-30)
[2022-06-11] MEDS: INSULIN REGULAR 100 UNIT in SODIUM CHLORIDE 0.9% 100 ML IV SCH (22:47)
[2022-06-11] MEDS: SODIUM CHLORIDE 0.9% 1,000 ML IV SCH (22:49)
[2022-06-11 22:56] LABS: Glucose,Whole Blood 470 mg/dL (70-110)
[2022-06-11] MEDS: GABAPENTIN 300 MG CAP PO SCH (23:03)
[2022-06-12 00:05] LABS: Glucose,Whole Blood 338 mg/dL (70-110)
[2022-06-12 00:11] LABS: Glucose,Whole Blood 336 mg/dL (70-110)
[2022-06-12 01:07] LABS: Glucose,Whole Blood 259 mg/dL (70-110)
[2022-06-12] MEDS: SODIUM CHLORIDE 0.9% 1,000 ML IV SCH (01:09)
[2022-06-12] MEDS: D5-0.45% NACL WITH KCL 20MEQ/L 1,000 ML IV SCH ×3 (01:29→21:17)
[2022-06-12 02:04] LABS: Glucose,Whole Blood 223 mg/dL (70-110)
[2022-06-12 02:19] LABS: African American GFR (CKD) >90 (>60 ml/min/1.73 sqM); Anion Gap 22 mmol/L; Blood Urea Nitrogen 20 mg/dL (9-20); Carbon Dioxide 10 mmol/L (22-30); Chloride 114 mmol/L (98-107); Glucose 238 mg/dL (74-99); Non-African American GFR(CKD) >90 (>60 ml/min/1.73 sqM); Phosphorus 4.2 mg/dL (2.5-4.5); Potassium 4.8 mmol/L (3.5-5.1); Sodium 146 mmol/L (137-145)
[2022-06-12 02:21] LABS: Glucose,Whole Blood 204 mg/dL (70-110)
[2022-06-12 03:20] LABS: Glucose,Whole Blood 155 mg/dL (70-110)
[2022-06-12 04:10] LABS: Glucose,Whole Blood 152 mg/dL (70-110)
[2022-06-12 05:28] LABS: Glucose,Whole Blood 143 mg/dL (70-110)
[2022-06-12 06:09] LABS: Glucose,Whole Blood 126 mg/dL (70-110)
[2022-06-12 06:52] LABS: Glucose,Whole Blood 113 mg/dL (70-110)
[2022-06-12] MEDS: GABAPENTIN 300 MG CAP PO SCH ×3 (08:27→21:21)
[2022-06-12] MEDS: INSULIN REGULAR 100 UNIT in SODIUM CHLORIDE 0.9% 100 ML IV SCH (08:28)
[2022-06-12 08:30] LABS: Glucose,Whole Blood 147 mg/dL (70-110)
[2022-06-12 08:54] LABS: African American GFR (CKD) >90 (>60 ml/min/1.73 sqM); Anion Gap 12 mmol/L; Blood Urea Nitrogen 19 mg/dL (9-20); Carbon Dioxide 19 mmol/L (22-30); Chloride 109 mmol/L (98-107); Glucose 126 mg/dL (74-99); Non-African American GFR(CKD) >90 (>60 ml/min/1.73 sqM); Potassium 4.8 mmol/L (3.5-5.1); Sodium 140 mmol/L (137-145)
[2022-06-12 10:18] LABS: Glucose,Whole Blood 163 mg/dL (70-110)
[2022-06-12 11:39] LABS: Glucose,Whole Blood 192 mg/dL (70-110)
[2022-06-12 12:52] LABS: Glucose,Whole Blood 208 mg/dL (70-110)
[2022-06-12 14:16] LABS: Glucose,Whole Blood 184 mg/dL (70-110)
[2022-06-12 15:16] LABS: Glucose,Whole Blood 180 mg/dL (70-110)
[2022-06-12 16:04] LABS: Glucose,Whole Blood 142 mg/dL (70-110)
[2022-06-12 16:59] LABS: Glucose,Whole Blood 147 mg/dL (70-110)
[2022-06-12 17:53] LABS: Potassium 4.1 mmol/L (3.5-5.1)
[2022-06-12 18:57] LABS: Glucose,Whole Blood 191 mg/dL (70-110)
[2022-06-12 20:27] LABS: Glucose,Whole Blood 258 mg/dL (70-110)
[2022-06-12] MEDS ORDERED: INSULIN DETEMIR (LEVEMIR) 100 UNIT/ML SYR SQ SCH (21:00)
--- NOTE | 2022-06-12 22:23 | HP ---
HISTORY AND PHYSICAL CHIEF COMPLAINT: DKA. HISTORY OF PRESENT ILLNESS: This is another admission for this gentleman. He has been in and out numerous times last year and this year. He was just discharged 3 days ago. He is back in with DKA. REVIEW OF SYSTEMS: He is very lethargic, but apparently has no complaints. Past medical history, family history and personal and social histories are all unchanged. He does not take his insulin. There are other issues known about this gentleman. He is very depressed. He is consuming alcohol in large quantities quite frequently. He states that he is homeless, but he bounces from 1 friend's house to another. He also is currently working under the table. PHYSICAL EXAMINATION: VITAL SIGNS: Blood pressure is 115/82 with a pulse of 96, respirations of 38, and he is afebrile. GENERAL: Appeared to be slender, dehydrated, and lethargic. He is not vomiting at this point. HEENT: Head, ears, eyes, nose, mouth and throat were normal. NECK: Normal. CHEST: Clear. CARDIAC: Exam was normal. There are no murmurs or extra sounds. There was tachycardia. ABDOMEN: Flat, soft, nontender. There is no visceromegaly. Bowel sounds are heard. EXTREMITIES: Normal. NEUROLOGIC: He is very lethargic. IMPRESSION: 1. Diabetic ketoacidosis. 2. Major depression. 3. History of alcoholism. PLAN: 1. DKA protocol. 2. Psychiatric consult once again. 3. Try to find a way to approach guardianship for mental incapacitation. MMODL / IJN: [id number] /
--- NOTE | 2022-06-12 23:53 | PN ---
PROGRESS NOTE DATE OF SERVICE: 06/12/2022 CHIEF COMPLAINT: DKA. HISTORY OF PRESENT ILLNESS: This gentleman remains very lethargic. His gap is closed and we will reintroduce his basal bolus program. REVIEW OF SYSTEMS: He is quite lethargic, but denies any chest pain, headache, abdominal pain, nausea, etc. PHYSICAL EXAMINATION: CHEST: Clear. CARDIAC: Normal. ABDOMEN: Soft, nontender. IMPRESSION: Diabetic ketoacidosis. PLAN: 1. Resume basal bolus program. 2. Psychiatric consult. It is hoped that we can get a determination that he is medically incapacitated to proceed with the possibility of guardianship. His mother might be a candidate. MMODL / IJN: [id number] /
[2022-06-13 02:42] VITALS: RESP 16
[2022-06-13] MEDS: D5-0.45% NACL WITH KCL 20MEQ/L 1,000 ML IV SCH (03:10)
[2022-06-13 07:14] LABS: Glucose,Whole Blood 187 mg/dL (70-110)
[2022-06-13] MEDS ORDERED: INSULIN ASPART (NovoLOG) 100 UNIT/ML VIAL SQ SCH (07:30)
[2022-06-13 07:41] VITALS: BP 112/72; PULSE 72; TEMP 98
--- NOTE | 2022-06-13 13:22 | P.CN ---
Psychiatric Consult - . Consult date: 06/13/22 Consult:: 06/13/22 12:57 Patient was attempted to be seen today by movie writer for psychiatric consultation however patient was already discharged as he signed AMA.
--- NOTE | 2022-06-13 22:45 | DS ---
DISCHARGE SUMMARY CHIEF COMPLAINT: DKA. HISTORY OF PRESENT ILLNESS AND PHYSICAL EXAMINATION: Details of this man's history and physical can be found in the initial workup. LABORATORY STUDIES: While he is in the hospital, he had laboratory studies, details of which can be found in the laboratory section of his chart. COURSE IN THE HOSPITAL: After admission, he was placed on bedrest and started on intravenous fluids and DKA protocol. He was quite lethargic for 24 to 36 hours, but then he began to become more alert. His gap was closed and he was placed back on his usual basal bolus insulin program. The plan was that he will be seen by Psychiatry and that, hopefully, we could obtain a 72-hour hold, and in the meantime, start guardianship procedures. However, he signed out early in the morning on the . FINAL DIAGNOSES: 1. Diabetic ketoacidosis. 2. Major depression. 3. Gastroparesis. 4. Alcoholism. OPERATIONS: None. CONSULTATIONS: Psychiatry. CONDITION: He is improved. GRACE / ALDEN: [id number] /
== END 2022-06-13 08:24 | disposition left against medical advice (07) | DRG 639 ==
LOC: EC 16:35 → 3SCARD 19:35 → 5NMEDONC 06-13 02:04
PROVIDERS: ADMIT Family Medicine; ATTEND Family Medicine
DX: E11.10 Type 2 diabetes mellitus with ketoacidosis without coma (principal); E11.43 Type 2 diabetes mellitus with diabetic autonomic (poly)neuropathy; F17.290 Nicotine dependence, other tobacco product, uncomplicated; F10.20 Alcohol dependence, uncomplicated; E86.0 Dehydration; F32.A Depression, unspecified; K31.84 Gastroparesis; Z79.4 Long term (current) use of insulin; Z91.14 Patient's other noncompliance with medication regimen; Z79.899 Other long term (current) drug therapy; Z53.29 Procedure and treatment not carried out because of patient's decision for other reasons
CPT/HCPCS: 36415; 80051; 80053; 82009; 82150; 82565; 82947; 83690; 84100; 84520; 85025; 96365; 96366; 96375; 99291

== ENCOUNTER 2022-06-15 12:22 | Inpatient (IN) | payer OTHER ==
[2022-06-15] MEDS ORDERED: SODIUM CHLORIDE 0.9% 2,000 ML IV STA (12:30)
[2022-06-15 13:45] LABS: Basophils % (A) 1 %; Eosinophils # (A) 0.1 k/uL (0-0.7); Eosinophils % (A) 1 %; HCT 42.6 % (39.0-53.0); HGB 14.3 gm/dL (13.0-17.5); Lymphocytes # (A) 1.2 k/uL (1.0-4.8); Lymphocytes % (A) 25 %; MCH 30.9 pg (25.0-35.0); MCHC 33.5 g/dL (31.0-37.0); MCV 92.2 fL (80.0-100.0); Mean Platelet Volume 7.2; Monocytes # (A) 0.3 k/uL (0-1.0); Monocytes % (A) 5 %; Neutrophils # (A) 3.3 k/uL (1.3-7.7); Neutrophils % (A) 66 %; Platelet Count 306 k/uL (150-450); RBC 4.62 m/uL (4.30-5.90); RDW 12.6 % (11.5-15.5); WBC 4.9 k/uL (3.8-10.6)
[2022-06-15 13:53] LABS: VBG PH 7.34 (7.31-7.41)
[2022-06-15 13:56] LABS: ALT 19 U/L (4-49); AST 18 U/L (17-59); African American GFR (CKD) >90 (>60 ml/min/1.73 sqM); Albumin 4.5 g/dL (3.5-5.0); Alkaline Phosphatase 88 U/L (38-126); Amylase 95 U/L (30-110); Anion Gap 24 mmol/L; Blood Urea Nitrogen 13 mg/dL (9-20); Calcium 8.5 mg/dL (8.4-10.2); Carbon Dioxide 12 mmol/L (22-30); Chloride 91 mmol/L (98-107); Glucose 472 mg/dL (74-99); Lipase 120 U/L (23-300); Non-African American GFR(CKD) >90 (>60 ml/min/1.73 sqM); Potassium 4.7 mmol/L (3.5-5.1); Sodium 127 mmol/L (137-145); Total Bilirubin 1.1 mg/dL (0.2-1.3); Total Protein 6.7 g/dL (6.3-8.2)
[2022-06-15 14:05] LABS: Appearance,Urine Clear (Clear); Bilirubin,Urine Negative (Negative); Blood,Urine Negative (Negative); Color,Urine Colorless; Glucose,Urine (UA) 4+ (Negative); Leukocyte Esterase,Urine Negative (Negative); Nitrite,Urine Negative (Negative); Protein,Urine Negative (Negative); Specific Gravity,Urine 1.026 (1.001-1.035); Urobilinogen,Urine <2.0 mg/dL (<2.0)
[2022-06-15 14:08] LABS: Ketones,Urine 4+ (Negative)
[2022-06-15] MEDS ORDERED: INSULIN REGULAR 100 UNIT in SODIUM CHLORIDE 0.9% 100 ML IV SCH (14:30)
[2022-06-15] MEDS: SODIUM CHLORIDE 0.9% 1,000 ML IV SCH ×2 (15:21→18:04)
[2022-06-15 15:23] LABS: Glucose,Whole Blood 409 mg/dL (70-110)
--- NOTE | 2022-06-15 15:30 | ED ---
General Adult HPI - General Chief complaint: Nausea/Vomiting/Diarrhea Stated complaint: abd pain, vomiting Time Seen by Provider: 06/15/22 12:30 Source: patient, RN notes reviewed Mode of arrival: ambulatory Limitations: no limitations - History of Present Illness Initial comments: 26-year-old male presents emergency Department with chief complaint nausea vomiting abdominal pain and hyperglycemia. Patient is well-known emergency department patient is type I diabetic uncontrolled noncompliant. Patient has had several hospitalizations in which patient signed out AGAINST MEDICAL ADVICE. Patient states is currently homeless. Patient denies any alcohol intake today. - Related Data Home Medications Medication Instructions Recorded Confirmed INSULIN ASPART (NovoLOG) [NovoLOG 10 unit SQ AC-TID 06/29/21 06/15/22 (formulary)] Gabapentin 600 mg PO TID 12/19/21 06/15/22 Insulin Detemir (Levemir) [Levemir] 25 unit SQ DAILY 04/11/22 06/15/22 Previous Rx's Medication Instructions Recorded Ondansetron Odt [Zofran ODT] 4 mg PO Q8HR PRN #10 tab 05/26/22 Allergies Allergy/AdvReac Type Severity Reaction Status Date / Time No Known Allergies Allergy Verified 06/15/22 15:02 Review of Systems ROS Statement: Those systems with pertinent positive or pertinent negative responses have been documented in the HPI. ROS Other: All systems not noted in ROS Statement are negative. Past Medical History Past Medical History: Asthma, Diabetes Mellitus, Neurologic Disorder, Skin Disorder Additional Past Medical History / Comment(s): IDDM type I, neuropathy bilateral feet, DKA, eczema. History of Any Multi-Drug Resistant Organisms: None Reported Past Surgical History: Adenoidectomy Additional Past Surgical History / Comment(s): 2002 Past Anesthesia/Blood Transfusion Reactions: No Reported Reaction Past Psychological History: Anxiety, Depression Smoking Status: Current every day smoker, Vaper Past Alcohol Use History: None Reported Past Drug Use History: None Reported - Past Family History Mother Family Medical History: CVA/TIA Additional Family Medical History / Comment(s): TIA Father Family Medical History: Hyperlipidemia, Hypertension Additional Family Medical History / Comment(s): . General Exam General appearance: alert, in no apparent distress Head exam: Present: atraumatic, normocephalic, normal inspection Eye exam: Present: normal appearance, PERRL, EOMI. Absent: scleral icterus, conjunctival injection, periorbital swelling ENT exam: Present: normal exam, normal oropharynx, mucous membranes moist Neck exam: Present: normal inspection, full ROM. Absent: tenderness, meningismus, lymphadenopathy Respiratory exam: Present: normal lung sounds bilaterally. Absent: respiratory distress, wheezes, rales, rhonchi, stridor Cardiovascular Exam: Present: normal rhythm, tachycardia, normal heart sounds. Absent: systolic murmur, diastolic murmur, rubs, gallop, clicks GI/Abdominal exam: Present: soft, tenderness, normal bowel sounds. Absent: distended, guarding, rebound, rigid Back exam: Absent: CVA tenderness (R), CVA tenderness (L) Neurological exam: Present: alert Skin exam: Present: warm, dry, intact, normal color. Absent: rash Course Vital Signs 06/15/22 12:25 Temperature 98.0 F Pulse Rate 110 H Respiratory 16 Rate Blood Pressure 140/98 O2 Sat by Pulse 100 Oximetry Medical Decision Making - Medical Decision Making Was pt. sent in by a medical professional or institution (Dr. PA, SWIMMING COACH OR INSTRUCTOR, urgent care, hospital, or longterm...) When possible be specific @ -No Did you speak to anyone other than the patient for history (EMS, parent, family, police, friend...)? What history was obtained from this source @ -No Did you review nursing and triage notes (agree or disagree)? Why? @ -I reviewed and agree with nursing and triage notes Were old charts reviewed (outside hosp., previous admission, EMS record, old EKG, old radiological studies, urgent care reports/EKG's, longterm records)? Report findings @ -Multiple prior ER in the hospital physician records Differential Diagnosis (chest pain, altered mental status, abdominal pain women, abdominal pain men, vaginal bleeding, weakness, fever, dyspnea, syncope, headache, dizziness, GI bleed, back pain, seizure, CVA, palpatations, mental health)? @ -Nausea vomiting, gastroparesis, alcohol intoxication, DKA, hyperglycemia, this is not inclusive. EKG interpreted by me (3pts min.). @ -none X-rays interpreted by me (1pt min.). @ -None done CT interpreted by me (1pt min.). @ -None done U/S interpreted by me (1pt. min.). @ -None done What testing was considered but not performed or refused? (CT, X-rays, U/S, labs)? Why? @ -None What meds were considered but not given or refused? Why? @ -None Did you discuss the management of the patient with other professionals (professionals i.e. , PA, SWIMMING COACH OR INSTRUCTOR, lab, RT, psych nurse, social worker psychiatric, ink technician, teacher, youth officer, bilingual patient support caseworker)? Give summary @ -No Was smoking cessation discussed for >3mins.? @ -No Was critical care preformed (if so, how long)? @ -35 mins Were there social determinants of health that impacted care today? How? (Homelessness, low income, unemployed, alcoholism, drug addiction, transportation, low edu. Level, literacy, decrease access to med. care, snf, rehab)? @ -Homelessness - difficulty receiving medications, care, nutrition intake that as well for his diabetes. Was there de-escalation of care discussed even if they declined (Discuss DNR or withdrawal of care, Hospice)? DNR status @ -No What co-morbidities impacted this encounter? (DM, HTN, Smoking, COPD, CAD, Cancer, CVA, ARF, Chemo, Hep., AIDS, mental health diagnosis, sleep apnea, morbid obesity)? @ -Diabetes Was patient admitted / discharged? Hospital course, mention meds given and route, prescriptions, significant lab abnormalities, going to OR and other pertinent info. @ -Admitted patient is found to be in DKA, bicarb 12, anion gap 24 patient was started on fluid bolus, maintenance fluids, insulin drip with repeat labs, patiently admitted to Dr. Valenzuela with consult to psych and social work Undiagnosed new problem with uncertain prognosis? @ -No Drug Therapy requiring intensive monitoring for toxicity (Heparin, Nitro, Insulin, Cardizem)? @ -Yes insulin Were any procedures done? @ -No Diagnosis/symptom? @ -DKA Acute, or Chronic, or Acute on Chronic? @ -Acute on chronic Uncomplicated (without systemic symptoms) or Complicated (systemic symptoms)? @ -Complicated Side effects of treatment? @ -No Exacerbation, Progression, or Severe Exacerbation? @ -Severe exacerbation Poses a threat to life or bodily function? How? (Chest pain, [place], VA, pneumonia, PE, COPD, DKA, ARF, appy, cholecystitis, CVA, Diverticulitis, Homicidal, Suicidal, threat to staff... and all critical care pts) @ -Yes DKA - Lab Data Result diagrams: 06/15/22 13:32 06/15/22 13:32 Lab Results 06/15/22 06/15/22 06/15/22 Range/Units 13:32 13:32 13:32 WBC 4.9 (3.8-10.6) k/uL RBC 4.62 (4.30-5.90) m/uL Hgb 14.3 (13.0-17.5) gm/dL Hct 42.6 (39.0-53.0) % MCV 92.2 (80.0-100.0) fL MCH 30.9 (25.0-35.0) pg MCHC 33.5 (31.0-37.0) g/dL RDW 12.6 (11.5-15.5) % Plt Count 306 (150-450) k/uL MPV 7.2 Neutrophils % 66 % Lymphocytes % 25 % Monocytes % 5 % Eosinophils % 1 % Basophils % 1 % Neutrophils # 3.3 (1.3-7.7) k/uL Lymphocytes # 1.2 (1.0-4.8) k/uL Monocytes # 0.3 (0-1.0) k/uL Eosinophils # 0.1 (0-0.7) k/uL Basophils # 0.0 (0-0.2) k/uL VBG pH (7.31-7.41) VBG pCO2 (37-51) mmHg VBG HCO3 (24-28) mmol/L Sodium 127 L (137-145) mmol/L Potassium 4.7 (3.5-5.1) mmol/L Chloride 91 L (98-107) mmol/L Carbon Dioxide 12 L (22-30) mmol/L Anion Gap 24 mmol/L BUN 13 (9-20) mg/dL Creatinine 0.64 L (0.66-1.25) mg/dL Est GFR (CKD-EPI)AfAm >90 (>60 ml/min/1.73 sqM) Est GFR (CKD-EPI)NonAf >90 (>60 ml/min/1.73 sqM) Glucose 472 H (74-99) mg/dL POC Glucose (mg/dL) (70-110) mg/dL POC Glu Cook Candy ID Plasma Lactic Acid Len 1.0 (0.7-2.0) mmol/L Calcium 8.5 (8.4-10.2) mg/dL Total Bilirubin 1.1 (0.2-1.3) mg/dL AST 18 (17-59) U/L ALT 19 (4-49) U/L Alkaline Phosphatase 88 (38-126) U/L Total Protein 6.7 (6.3-8.2) g/dL Albumin 4.5 (3.5-5.0) g/dL Amylase 95 (30-110) U/L Lipase 120 (23-300) U/L Urine Color Urine Appearance (Clear) Urine pH (5.0-8.0) Ur Specific [place] (1.001-1.035) Urine Protein (Negative) Urine Glucose (UA) (Negative) Urine Ketones (Negative) Urine Blood (Negative) Urine Nitrite (Negative) Urine Bilirubin (Negative) Urine Urobilinogen (<2.0) mg/dL Ur Leukocyte Esterase (Negative) Acetone, Qual Positive (Negative) 06/15/22 06/15/22 06/15/22 Range/Units 13:32 13:50 15:21 WBC (3.8-10.6) k/uL RBC (4.30-5.90) m/uL Hgb (13.0-17.5) gm/dL Hct (39.0-53.0) % MCV (80.0-100.0) fL MCH (25.0-35.0) pg MCHC (31.0-37.0) g/dL RDW (11.5-15.5) % Plt Count (150-450) k/uL MPV Neutrophils % % Lymphocytes % % Monocytes % % Eosinophils % % Basophils % % Neutrophils # (1.3-7.7) k/uL Lymphocytes # (1.0-4.8) k/uL Monocytes # (0-1.0) k/uL Eosinophils # (0-0.7) k/uL Basophils # (0-0.2) k/uL VBG pH 7.34 (7.31-7.41) VBG pCO2 29 L (37-51) mmHg VBG HCO3 15 L (24-28) mmol/L Sodium (137-145) mmol/L Potassium (3.5-5.1) mmol/L Chloride (98-107) mmol/L Carbon Dioxide (22-30) mmol/L Anion Gap mmol/L BUN (9-20) mg/dL Creatinine (0.66-1.25) mg/dL Est GFR (CKD-EPI)AfAm (>60 ml/min/1.73 sqM) Est GFR (CKD-EPI)NonAf (>60 ml/min/1.73 sqM) Glucose (74-99) mg/dL POC Glucose (mg/dL) 409 H (70-110) mg/dL POC Glu Cook Candy ID Enzo retana Plasma Lactic Acid Len (0.7-2.0) mmol/L Calcium (8.4-10.2) mg/dL Total Bilirubin (0.2-1.3) mg/dL AST (17-59) U/L ALT (4-49) U/L Alkaline Phosphatase (38-126) U/L Total Protein (6.3-8.2) g/dL Albumin (3.5-5.0) g/dL Amylase (30-110) U/L Lipase (23-300) U/L Urine Color Colorless Urine Appearance Clear (Clear) Urine pH 5.0 (5.0-8.0) Ur Specific [place] 1.026 (1.001-1.035) Urine Protein Negative (Negative) Urine Glucose (UA) 4+ H (Negative) Urine Ketones 4+ H (Negative) Urine Blood Negative (Negative) Urine Nitrite Negative (Negative) Urine Bilirubin Negative (Negative) Urine Urobilinogen <2.0 (<2.0) mg/dL Ur Leukocyte Esterase Negative (Negative) Acetone, Qual (Negative) Critical Care Time Critical Care Time: Yes Total Critical Care Time: 35 Disposition Clinical Impression: DKA (diabetic ketoacidoses) Disposition: ADMITTED IP TO THIS HOSP Condition: Poor Referrals: Brown Valenzuela MD [Primary Care Provider] - 1-2 days Time of Disposition: 15:01
[2022-06-15] MEDS ORDERED: ONDANSETRON ODT 4 MG TAB PO PRN (16:03)
[2022-06-15 16:26] LABS: Glucose,Whole Blood 334 mg/dL (70-110)
[2022-06-15 17:29] LABS: Glucose,Whole Blood 201 mg/dL (70-110)
[2022-06-15] MEDS ORDERED: INSULIN ASPART (NovoLOG) 100 UNIT/ML VIAL SQ SCH (17:30)
[2022-06-15] MEDS ORDERED: D5-0.45% NACL WITH KCL 20MEQ/L 1,000 ML IV SCH (18:00)
[2022-06-15 18:31] LABS: Glucose,Whole Blood 151 mg/dL (70-110)
[2022-06-15 18:35] LABS: African American GFR (CKD) >90 (>60 ml/min/1.73 sqM); Anion Gap 13 mmol/L; Blood Urea Nitrogen 12 mg/dL (9-20); Carbon Dioxide 19 mmol/L (22-30); Chloride 100 mmol/L (98-107); Glucose 194 mg/dL (74-99); Non-African American GFR(CKD) >90 (>60 ml/min/1.73 sqM); Phosphorus 2.4 mg/dL (2.5-4.5); Potassium 3.9 mmol/L (3.5-5.1); Sodium 132 mmol/L (137-145)
[2022-06-15 19:37] LABS: Glucose,Whole Blood 160 mg/dL (70-110)
[2022-06-15 20:56] LABS: Glucose,Whole Blood 125 mg/dL (70-110)
[2022-06-15] MEDS: GABAPENTIN 300 MG CAP PO SCH (21:00)
[2022-06-15 21:44] LABS: Glucose,Whole Blood 102 mg/dL (70-110)
[2022-06-15 22:10] LABS: African American GFR (CKD) >90 (>60 ml/min/1.73 sqM); Anion Gap 5 mmol/L; Blood Urea Nitrogen 11 mg/dL (9-20); Carbon Dioxide 27 mmol/L (22-30); Chloride 103 mmol/L (98-107); Glucose 100 mg/dL (74-99); Non-African American GFR(CKD) >90 (>60 ml/min/1.73 sqM); Phosphorus 2.9 mg/dL (2.5-4.5); Potassium 4.4 mmol/L (3.5-5.1); Sodium 135 mmol/L (137-145)
[2022-06-15 22:51] LABS: ALT 19 U/L (4-49); AST 15 U/L (17-59); Albumin 3.7 g/dL (3.5-5.0); Alkaline Phosphatase 60 U/L (38-126); Calcium 8.5 mg/dL (8.4-10.2); Total Bilirubin 0.6 mg/dL (0.2-1.3); Total Protein 5.9 g/dL (6.3-8.2)
[2022-06-15 23:40] LABS: Glucose,Whole Blood 224 mg/dL (70-110)
[2022-06-15] MEDS: INSULIN DETEMIR (LEVEMIR) 100 UNIT/ML SYR SQ SCH (23:49)
[2022-06-15] MEDS: D5-0.45% NACL WITH KCL 20MEQ/L 1,000 ML IV SCH (23:49)
[2022-06-16 06:09] LABS: Glucose,Whole Blood 65 mg/dL (70-110)
[2022-06-16 06:16] LABS: ALT 17 U/L (4-49); AST 15 U/L (17-59); African American GFR (CKD) >90 (>60 ml/min/1.73 sqM); Albumin 3.8 g/dL (3.5-5.0); Alkaline Phosphatase 61 U/L (38-126); Anion Gap 3 mmol/L; Blood Urea Nitrogen 8 mg/dL (9-20); Carbon Dioxide 29 mmol/L (22-30); Chloride 106 mmol/L (98-107); Glucose 76 mg/dL (74-99); Non-African American GFR(CKD) >90 (>60 ml/min/1.73 sqM); Potassium 4.3 mmol/L (3.5-5.1); Sodium 138 mmol/L (137-145); Total Bilirubin 0.6 mg/dL (0.2-1.3)
[2022-06-16 06:23] LABS: Glucose,Whole Blood 69 mg/dL (70-110)
[2022-06-16 06:41] LABS: Glucose,Whole Blood 104 mg/dL (70-110)
[2022-06-16] MEDS: INSULIN ASPART (NovoLOG) 100 UNIT/ML VIAL SQ SCH ×3 (07:49→17:08)
[2022-06-16] MEDS: GABAPENTIN 300 MG CAP PO SCH ×3 (07:49→20:16)
[2022-06-16 11:31] LABS: Glucose,Whole Blood 82 mg/dL (70-110)
--- NOTE | 2022-06-16 14:12 | P.PN ---
Progress Note - Text Progress Note Date: 06/16/22 Psychiatry consult brief note: Patient was evaluated today and does NOT meet criteria for inpatient psychiatric admission at this time. He declines psychotropic medications. Full consult note to follow.
[2022-06-16 16:38] LABS: Glucose,Whole Blood 134 mg/dL (70-110)
[2022-06-16] MEDS: D5-0.45% NACL WITH KCL 20MEQ/L 1,000 ML IV SCH (17:09)
[2022-06-16 20:11] LABS: Glucose,Whole Blood 203 mg/dL (70-110)
[2022-06-16] MEDS: INSULIN DETEMIR (LEVEMIR) 100 UNIT/ML SYR SQ SCH (20:16)
--- NOTE | 2022-06-16 21:23 | PN ---
PROGRESS NOTE DATE OF SERVICE: 06/16/2022 CHIEF COMPLAINT: DKA. HISTORY OF PRESENT ILLNESS: This gentleman is a little bit more awake and alert. He still is nauseated occasionally. The gap is closed. PHYSICAL EXAMINATION: CHEST: Clear. CARDIAC: Normal. ABDOMEN: Soft, nontender. IMPRESSION: 1. Diabetic ketoacidosis. 2. Depression. PLAN: Psychiatric consult. Guardianship. GRACE / TRAMN: [id number] /
--- NOTE | 2022-06-16 23:09 | HP ---
HISTORY AND PHYSICAL CHIEF COMPLAINT: Diabetic ketoacidosis. HISTORY OF PRESENT ILLNESS: This is another admission for this 26-year-old male with type 1 insulin-dependent diabetes, who is completely noncompliant. He has been in and out of the hospital 30 to 40 times in the last year. He comes in with DKA because of not taking his insulin. Frequently, he is intoxicated. He clearly does this intentionally. Once he is in the hospital and get stabilized, he signs out just about every time. He has been seen by Psychiatry in the past and has been in and out of the psych unit here as well as having done the inpatient stent in the [facility] institution. The patient has very few support systems. He is able to work. When he is working, and is in certain environments, he does well. The people who know him encountered him on social media, reports that he makes many threats to himself. A recent social media post from the patient read "Subsequently have no hope. Being hopeless. I got too much on my plate, too depressed to fix myself, had been trying to kill myself for years. I have proven good opportunities, lost my baby, my gecko . I am really ended off." "I know people care. I know not to give up with my situation. I have 2 choices of suicide, they are due up to 2 years of time and pay hefty fees." "I meet nobody to help me through that. I do not have people like that and the ones that are I can't ask because they have already done more than their share, this grows deeper than just being heard about. I talked to my of too much and I can't go until my family completely understands." REVIEW OF SYSTEMS: The patient does have trouble with intermittent nausea and vomiting, likely related to the combination of gastroparesis, uncontrolled diabetes and alcohol abuse. The remainder of his history is unchanged. PHYSICAL EXAMINATION: VITAL SIGNS: Blood pressure is 104/55 with a pulse of 116, respirations of 42. He is afebrile. GENERAL: He appeared to be slender, marginally nourished, disheveled and dehydrated. HEAD, EARS, EYES, NOSE, MOUTH AND THROAT: Normal except for dry mucous membranes. NECK: Supple. Neck veins not distended. CHEST: Clear. CARDIAC: Demonstrates sinus tachycardia. ABDOMEN: Flat, soft, nontender without any masses or visceromegaly. EXTREMITIES: Normal. NEUROLOGIC: He is lethargic and he is nauseated. He is admitted to the hospital with diagnoses: 1. Diabetic ketoacidosis. 2. Noncompliant individual. 3. Uncontrolled type 1 insulin-dependent diabetes mellitus due to noncompliance. 4. Gastroparesis. 5. Dehydration. 6. Depression. PLAN: 1. Bedrest. 2. IV fluids. 3. Psychiatric consult. This patient should be assigned a guardian due to his medical incapacitation. MMODL / IJN: [id number] /
--- NOTE | 2022-06-17 00:13 | P.CN ---
Psychiatric Consult - . Consult date: 06/16/22 Consult:: IDENTIFYING DATA: This patient is a single, unemployed, 26 year old male with uncontrolled type I diabetes and several hospitalizations, depression and borderline personality disorder, and noncompliance with treatment. REASON FOR REFERRAL: Psychiatry was consulted for "depression, drug use" HISTORY OF PRESENT ILLNESS: The patient presented to the hospital on 06/15/2022 due to hyperglycemia, nausea, vomiting, abdominal pain, and blood sugar was found to be 471. He was admitted to the medical unit for DKA and started on insulin. He is well known to the ER and medical units since he frequently presents with DKA and signs himself out against medical advice. On my assessment today, patient is found resting in his bed with IV infusions running. He appears calm, superficially polite. He reports he has a bench warrant out for him due to missing court dates for "obstruction of justice" charges. He is planning on turning himself in at the police station after discharge from the medical unit. He reports his anxiety has been increased lately because of these warrants. He denies depressed mood. At this time, patient denies active suicidal or homicidal ideation, intent or plan. He often wishes he was someone different who doesn't have diabetes but does not want to kill himself. Patient denies any auditory, visual hallucinations and denies any paranoia or delusions. Patients admits to using marijuana almost daily. He d enies use of other drugs. He reports drinking socially, with last use on . He reports he previously had a public guardian two years ago but not currently. He states he had an intake appointment with [facility] about 3 weeks ago and can follow-up there. He declines to start an SSRI for anxiety/depression at this time. PAST PSYCHIATRIC HISTORY: The patient has had multiple psychiatric hospitalizations. He is nonadherent with any prescribed medications and does not follow up with any psychiatrist or therapist on a regular basis. Patient has been tried on several different antidepressants in the past however has been nonadherent and declines to start any medications today. Patient has had several suicide attempts in the past. Patient was last admitted to the mental health unit in December 2021. Has a history of cluster B personality disorder and depression. PAST MEDICAL HISTORY: Past Medical History: Asthma, Diabetes Mellitus, Neurologic Disorder, Skin Disorder Additional Past Medical History / Comment(s): IDDM type I, neuropathy bilateral feet, DKA, eczema. History of Any Multi-Drug Resistant Organisms: None Reported Past Surgical History: Adenoidectomy Additional Past Surgical History / Comment(s): 2002 Past Anesthesia/Blood Transfusion Reactions: No Reported Reaction Past Psychological History: Anxiety, Depression Smoking Status: Current every day smoker, Vaper Past Alcohol Use History: None Reported Past Drug Use History: None Reported ALLERGIES: as per EMR. CHEMICAL DEPENDENCY HISTORY: The patient reports binge alcohol use episodes in the past. He does admit to daily marijuana use. He has a history of Xanax abuse however denies any Xanax use in four years. FAMILY PSYCHIATRIC/SUBSTANCE USE HISTORY: Denies SOCIAL HISTORY: Patient was born and raised in [place]. He dropped out in the 11th grade. He is homeless, and couch surfs. 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 MENTAL STATUS EXAM: General Appearance: Patient appears to be stated age, slender male, disheveled, poor hygiene and grooming, dressed in casual attire with good eye contact. Behavior: Patient is calmly lying in bed without any agitated behavior. Speech: Patient's speech is fluent and non-pressured. Mood/Affect: Patient reports their mood is "anxious", affect is bright and reactive. Suicidality/Homicidality: Patient denies having any active suicidal or homicidal ideation intent or plan. Perceptions: Patient denies any visual hallucinations and denies any auditory hallucinations. Though content/process: There is no evidence of any delusional thought content and thought process is linear and goal-directed. Memory and concentration: AOX3, grossly intact for the purposes of this session. Can spell "WORLD" backwards Judgment and insight: poor IMPRESSIONS: Noncompliance with treatment DKA Borderline personality disorder History of depression Cannabis use disorder PLAN: -At this time patient DOES NOT meet criteria for inpatient psychiatric admission. -Patient reports he has had a public guardian in the past, and he would likely b enefit from a public guardian again to oversee his medical care, housing, etc. -Would recommend the following medication changes/additions: He is declining psychotropic medications at this time, such as an SSRI to help with his anxiety. -Continue to re-evaluate safety and initiate sitter if safety concerns arise. -packing room worker to provide patient with outpatient mental health/psychiatry resources for appropriate follow up upon discharge. He states he recently had an intake appointment with [facility] and should follow-up there as soon as possible after discharge. -Case Mgr spoke with patient about substance abuse and the harmful effects on medical and mental health, patient verbally understood and agreed. -Communicated plan to patient's nurse -Psychiatry will sign off at this time -Please contact with any questions. 06/16/22 12:31 06/16/22 12:51 06/16/22 23:53
[2022-06-17 04:45] LABS: Glucose,Whole Blood 44 mg/dL (70-110)
[2022-06-17 05:24] LABS: Glucose,Whole Blood 71 mg/dL (70-110)
[2022-06-17 06:31] VITALS: RESP 18
[2022-06-17 07:15] LABS: Glucose,Whole Blood 166 mg/dL (70-110)
[2022-06-17] MEDS: GABAPENTIN 300 MG CAP PO SCH ×2 (07:54→17:30)
[2022-06-17] MEDS: INSULIN ASPART (NovoLOG) 100 UNIT/ML VIAL SQ SCH ×3 (07:54→17:30)
[2022-06-17 11:06] VITALS: BMI 18.7
[2022-06-17 12:04] LABS: Glucose,Whole Blood 158 mg/dL (70-110)
[2022-06-17] MEDS: D5-0.45% NACL WITH KCL 20MEQ/L 1,000 ML IV SCH (12:12)
[2022-06-17 17:18] LABS: Glucose,Whole Blood 146 mg/dL (70-110)
[2022-06-17 17:32] VITALS: BP 117/81; PULSE 90; TEMP 98.1
--- NOTE | 2022-06-18 23:33 | DS ---
DISCHARGE SUMMARY CHIEF COMPLAINT: DKA. HISTORY OF PRESENT ILLNESS AND PHYSICAL EXAMINATION: Details of this man's history and physical can be found in his initial workup. LABORATORY STUDIES: While he was in the hospital, he had laboratory studies, details of which can be found in the laboratory section of his chart. COURSE IN THE HOSPITAL: After admission, he was placed on bedrest, started on intravenous fluids and DKA protocol. His gap closed and blood sugars came down and he is doing well. It was hoped that he could be kept in the hospital long enough to be seen by Psychiatry, who then might agree to keep him in the hospital for guardianship, but he signed out AMA. FINAL DIAGNOSES: 1. Diabetic ketoacidosis. 2. Depression. 3. Type 1 insulin-dependent diabetes mellitus. 4. Noncompliance. 5. Alcoholism. 6. Gastroparesis. OPERATIONS: None. CONSULTATIONS: None. He is improved. MMBIANCA / ALDEN: [id number] /
== END 2022-06-17 18:26 | disposition left against medical advice (07) | DRG 639 ==
LOC: EC 12:22 → 3SCARD 15:46
PROVIDERS: ADMIT Family Medicine; ATTEND Family Medicine
DX: E10.10 Type 1 diabetes mellitus with ketoacidosis without coma (principal); E10.43 Type 1 diabetes mellitus with diabetic autonomic (poly)neuropathy; K31.84 Gastroparesis; T38.3X6A Underdosing of insulin and oral hypoglycemic [antidiabetic] drugs, initial encounter; E10.42 Type 1 diabetes mellitus with diabetic polyneuropathy; E86.0 Dehydration; F32.A Depression, unspecified; F60.3 Borderline personality disorder; F17.290 Nicotine dependence, other tobacco product, uncomplicated; Z53.29 Procedure and treatment not carried out because of patient's decision for other reasons; Z91.14 Patient's other noncompliance with medication regimen; X58.XXXA Exposure to other specified factors, initial encounter; L30.9 Dermatitis, unspecified; Z79.4 Long term (current) use of insulin
CPT/HCPCS: 36415; 80051; 80053; 81003; 82009; 82150; 82565; 82803; 82947; 83605; 83690; 84100; 84520; 85025; 96361; 96374; 99291

== ENCOUNTER 2022-08-15 01:21 | Emergency (ER) | payer OTHER ==
[2022-08-15 01:34] VITALS: BP 137/95; PULSE 101; RESP 16; TEMP 98.7
--- NOTE | 2022-08-15 02:36 | CT ---
EXAMINATION TYPE: CT brain cspine wo con DATE OF EXAM: 08/15/2022 COMPARISON: CT brain 05/02/2021 HISTORY: FALL Pain CT DLP: 1460.6 mGycm Automated exposure control for dose reduction was used. Images of the brain and cervical spine obtained with no contrast. Ventricles and sulci appear normal. There is no mass effect nor midline shift. No sign of intracrania l hemorrhage. Calvarium is intact. There is normal aeration of the mastoid sinuses. The skull base is intact. There is some mucosal thickening right maxillary sinus. Sella turcica appears normal. No [place] dence of cerebral edema. The cervical vertebra have normal spacing and alignment. Posterior elements are intact. Facet joints are intact. Prevertebral soft tissues are intact. IMPRESSION: Negative CT scan of the brain. Brain appears unchanged. Negative CT scan of the cervical spine.
--- NOTE | 2022-08-15 02:37 | XR ---
EXAMINATION TYPE: XR knee complete RT DATE OF EXAM: 08/15/2022 COMPARISON: NONE HISTORY: Knee pain TECHNIQUE: 2 views FINDINGS: There is no evidence of fracture nor dislocation. Joint spaces are fairly normal. No pathol ogic calcification. IMPRESSION: Negative right knee exam. No fracture.
[2022-08-15] MEDS ORDERED: KETOROLAC 15 MG/ML 1 ML VIAL IM STA (03:22)
--- NOTE | 2022-08-15 03:22 | ED ---
Fall HPI - General Chief Complaint: Fall Stated Complaint: Fall,Neck and head injury Time Seen by Provider: 08/15/22 02:51 Source: patient Mode of arrival: ambulatory - History of Present Illness Initial Comments: Patient is a 26-year-old male presenting for evaluation after fall. Patient states that he slipped and fell, landing backwards. He is complaining of pain on the left side of his neck. He is also complaining of right knee pain. He has chronic right knee pain but this is worse than normal. Patient had no loss of consciousness and is not on any blood thinners. No nausea, vomiting, dizziness, headache, vision or hearing changes, numbness, tingling, weakness, chest pain, difficulty breathing. - Related Data Home Medications Medication Instructions Recorded Confirmed INSULIN ASPART (NovoLOG) [NovoLOG 10 unit SQ AC-TID 06/29/21 07/08/22 (formulary)] Gabapentin 600 mg PO TID 12/19/21 07/08/22 Insulin Detemir (Levemir) [Levemir] 25 unit SQ DAILY 04/11/22 07/08/22 Previous Rx's Medication Instructions Recorded Ondansetron Odt [Zofran ODT] 4 mg PO Q8HR PRN #10 tab 05/26/22 Allergies Allergy/AdvReac Type Severity Reaction Status Date / Time No Known Allergies Allergy Verified 06/15/22 15:02 Review of Systems ROS Statement: Those systems with pertinent positive or pertinent negative responses have been documented in the HPI. ROS Other: All systems not noted in ROS Statement are negative. Past Medical History Past Medical History: Asthma, Diabetes Mellitus, Neurologic Disorder, Skin Disorder Additional Past Medical History / Comment(s): IDDM type I, neuropathy bilateral feet, DKA, eczema. History of Any Multi-Drug Resistant Organisms: None Reported Past Surgical History: Adenoidectomy Additional Past Surgical History / Comment(s): 2002 Past Anesthesia/Blood Transfusion Reactions: No Reported Reaction Past Psychological History: Anxiety, Depression Smoking Status: Current every day smoker, Vaper Past Alcohol Use History: None Reported Past Drug Use History: None Reported - Past Family History Mother Family Medical History: CVA/TIA Additional Family Medical History / Comment(s): TIA Father Family Medical History: Hyperlipidemia, Hypertension Additional Family Medical History / Comment(s): . General Exam Limitations: no limitations General appearance: alert, in no apparent distress Head exam: Present: atraumatic, normocephalic, normal inspection Eye exam: Present: normal appearance, PERRL, EOMI. Absent: scleral icterus, conjunctival injection, periorbital swelling Neck exam: Present: normal inspection, tenderness (Paraspinal muscle tenderness on the left side, no midline tenderness or right-sided tenderness), full ROM Respiratory exam: Present: normal lung sounds bilaterally. Absent: respiratory distress, wheezes, rales, rhonchi, stridor Cardiovascular Exam: Present: regular rate, normal rhythm, normal heart sounds. Absent: systolic murmur, diastolic murmur, rubs, gallop, clicks Extremities exam: Present: normal inspection, full ROM Neurological exam: Present: alert, oriented X3, CN II-XII intact Psychiatric exam: Present: normal affect, normal mood Skin exam: Present: warm, dry, intact, normal color. Absent: rash Course Vital Signs 08/15/22 01:31 Temperature 98.7 F Pulse Rate 101 H Respiratory 16 Rate Blood Pressure 137/95 O2 Sat by Pulse 100 Oximetry Medical Decision Making - Medical Decision Making Was pt. sent in by a medical professional or institution (, PA, RESOURCE EFFICIENCY MANAGER, urgent care, hospital, or half-way...) When possible be specific @ -No Did you speak to anyone other than the patient for history (EMS, parent, family, police, friend...)? What history was obtained from this source @ -No Did you review nursing and triage notes (agree or disagree)? Why? @ -I reviewed and agree with nursing and triage notes Were old charts reviewed (outside hosp., previous admission, EMS record, old EKG, old radiological studies, urgent care reports/EKG's, half-way records)? Report findings @ -No old charts were reviewed Differential Diagnosis (chest pain, altered mental status, abdominal pain women, abdominal pain men, vaginal bleeding, weakness, fever, dyspnea, syncope, headache, dizziness, GI bleed, back pain, seizure, CVA, palpatations, mental health, musculoskeletal)? @ -not applicable EKG interpreted by me (3pts min.). @ -As above X-rays interpreted by me (1pt min.). @ -Knee x-ray shows no acute process CT interpreted by me (1pt min.). @ -CT of the brain and cervical spine shows no acute process U/S interpreted by me (1pt. min.). @ -None done What testing was considered but not performed or refused? (CT, X-rays, U/S, labs)? Why? @ -None What meds were considered but not given or refused? Why? @ -None Did you discuss the management of the patient with other professionals (professionals i.e. DrLinda, PA, RESOURCE EFFICIENCY MANAGER, lab, RT, psych nurse, web content & social media manager, real estate lawyer, teacher, credit or loans officer, pillowcase turner)? Give summary @ -No Was smoking cessation discussed for >3mins.? @ -No Was critical care preformed (if so, how long)? @ -No Were there social determinants of health that impacted care today? How? (Homelessness, low income, unemployed, alcoholism, drug addiction, transportation, low edu. Level, literacy, decrease access to med. care, nursing home, rehab)? @ -No Was there de-escalation of care discussed even if they declined (Discuss DNR or withdrawal of care, Hospice)? DNR status @ -No What co-morbidities impacted this encounter? (DM, HTN, Smoking, COPD, CAD, Cancer, CVA, ARF, Chemo, Hep., AIDS, mental health diagnosis, sleep apnea, morbid obesity)? @ -None Was patient admitted / discharged? Hospital course, mention meds given and route, prescriptions, significant lab abnormalities, going to OR and other pertinent info. @ -Patient is a 26-year-old male presenting for evaluation after slip and fall. He is complaining of neck pain and knee pain. CT of the brain and cervical spine shows no acute process and x-ray of the knee shows no acute process. On examination he has only left-sided paraspinal muscle tenderness in the cervical region. He has full range of motion of the neck. There are no focal neuro logical deficits. Patient is educated on these findings and on supportive treatment at home. Follow-up with PCP. Report back to ER with any new or worsening symptoms. Discussed return parameters and answered all questions. Patient conveyed verbal understanding and agreed to the plan. I discussed this case in detail with my attending Dr. Neville Undiagnosed new problem with uncertain prognosis? @ -No Drug Therapy requiring intensive monitoring for toxicity (Heparin, Nitro, Insulin, Cardizem)? @ -No Were any procedures done? @ -No Diagnosis/symptom? @ -Neck strain Acute, or Chronic, or Acute on Chronic? @ -Acute Uncomplicated (without systemic symptoms) or Complicated (systemic symptoms)? @ -Uncomplicated Side effects of treatment? @ -No Exacerbation, Progression, or Severe Exacerbation? @ -No Poses a threat to life or bodily function? How? (Chest pain, [place], [place], pneumonia, PE, COPD, DKA, ARF, appy, cholecystitis, CVA, Diverticulitis, Homicidal, Suicidal, threat to staff... and all critical care pts) @ -No Disposition Clinical Impression: Head injury, Knee strain, Neck strain Disposition: HOME SELF-CARE Condition: Good Instructions (If sedation given, give patient instructions): Head Injury (ED), Knee Pain (ED) Additional Instructions: Follow-up with PCP. Report back to ER with any new or worsening symptoms. Take Motrin and Tylenol as needed for pain control. Is patient prescribed a controlled substance at d/c from ED?: No Referrals: Brown Valenzuela MD [Primary Care Provider] - 1-2 days Time of Disposition: 03:22
== END 2022-08-15 03:47 | disposition home or self-care (01) ==
LOC: EC 01:21
DX: S16.1XXA Strain of muscle, fascia and tendon at neck level, initial encounter (principal); S86.911A Strain of unspecified muscle(s) and tendon(s) at lower leg level, right leg, initial encounter; S09.90XA Unspecified injury of head, initial encounter; E10.40 Type 1 diabetes mellitus with diabetic neuropathy, unspecified; J45.909 Unspecified asthma, uncomplicated; F17.290 Nicotine dependence, other tobacco product, uncomplicated; Z79.899 Other long term (current) drug therapy; W01.0XXA Fall on same level from slipping, tripping and stumbling without subsequent striking against object, initial encounter
CPT/HCPCS: 70450; 72125; 99284

== ENCOUNTER 2022-08-15 09:19 | Observation (INO) | payer OTHER ==
[2022-08-15] MEDS ORDERED: SODIUM CHLORIDE 0.9% 1,000 ML IV ONE (09:33)
[2022-08-15] MEDS ORDERED: ONDANSETRON 4 MG/2 ML VIAL IVP STA (09:33)
--- NOTE | 2022-08-15 09:35 | ED ---
General Adult HPI - General Chief complaint: Nausea/Vomiting/Diarrhea Stated complaint: hyperglycemia Time Seen by Provider: 08/15/22 09:20 Source: patient, RN notes reviewed, old records reviewed Mode of arrival: EMS Limitations: no limitations - History of Present Illness Initial comments: 36-year-old male history of type 1 diabetes, gastroparesis presenting for evaluation of vomiting. Patient has had multiple episodes of vomiting over the past one hour. No abdominal pain. No chest pain. He states his sugars have been running high. Denies current diarrhea. - Related Data Home Medications Medication Instructions Recorded Confirmed INSULIN ASPART (NovoLOG) [NovoLOG 10 unit SQ AC-TID 06/29/21 08/15/22 (formulary)] Gabapentin 600 mg PO TID 12/19/21 08/15/22 Insulin Detemir (Levemir) [Levemir] 25 unit SQ DAILY 04/11/22 08/15/22 Allergies Allergy/AdvReac Type Severity Reaction Status Date / Time No Known Allergies Allergy Verified 08/15/22 11:12 Review of Systems ROS Statement: Those systems with pertinent positive or pertinent negative responses have been documented in the HPI. ROS Other: All systems not noted in ROS Statement are negative. Past Medical History Past Medical History: Asthma, Diabetes Mellitus, Neurologic Disorder, Skin Disorder Additional Past Medical History / Comment(s): IDDM type I, neuropathy bilateral feet, DKA, eczema. History of Any Multi-Drug Resistant Organisms: None Reported Past Surgical History: Adenoidectomy Additional Past Surgical History / Comment(s): 2002 Past Anesthesia/Blood Transfusion Reactions: No Reported Reaction Past Psychological History: Anxiety, Depression Smoking Status: Current every day smoker, Vaper Past Alcohol Use History: None Reported Past Drug Use History: None Reported - Past Family History Mother Family Medical History: CVA/TIA Additional Family Medical History / Comment(s): TIA Father Family Medical History: Hyperlipidemia, Hypertension Additional Family Medical History / Comment(s): . General Exam Limitations: no limitations General appearance: alert, in no apparent distress Head exam: Present: atraumatic, normocephalic Eye exam: Present: normal appearance, PERRL ENT exam: Present: mucous membranes moist Respiratory exam: Present: normal lung sounds bilaterally. Absent: respiratory distress, wheezes Cardiovascular Exam: Present: regular rate, normal rhythm GI/Abdominal exam: Present: soft. Absent: distended, tenderness, guarding, rebound Extremities exam: Present: normal inspection, normal capillary refill Neurological exam: Present: alert, oriented X3, CN II-XII intact. Absent: motor sensory deficit Psychiatric exam: Present: normal affect, normal mood Skin exam: Present: warm, dry, intact. Absent: cyanosis, diaphoretic Course Vital Signs 08/15/22 08/15/22 09:30 10:43 Temperature 97.6 F Pulse Rate 96 92 Respiratory 18 18 Rate Blood Pressure 136/108 105/71 O2 Sat by Pulse 98 98 Oximetry Medical Decision Making - Medical Decision Making Was pt. sent in by a medical professional or institution (, JAS, INSTRUCTOR MODELING, urgent care, hospital, or skilled nursing...) When possible be specific @ -[No] Did you speak to anyone other than the patient for history (EMS, parent, family, police, friend...)? What history was obtained from this source @ -Paramedics Did you review nursing and triage notes (agree or disagree)? Why? @ -[I reviewed and agree with nursing and triage notes] Were old charts reviewed (outside hosp., previous admission, EMS record, old EKG, old radiological studies, urgent care reports/EKG's, skilled nursing records)? Report findings @ -To previous laboratory testing and previous admissions Differential Diagnosis (chest pain, altered mental status, abdominal pain women, abdominal pain men, vaginal bleeding, weakness, fever, dyspnea, syncope, headache, dizziness, GI bleed, back pain, seizure, CVA, palpatations, mental health, musculoskeletal)? @ -Gastroenteritis, gastroparesis, DKA EKG interpreted by me (3pts min.). @ -[As above] X-rays interpreted by me (1pt min.). @ -[None done] CT interpreted by me (1pt min.). @ -[None done] U/S interpreted by me (1pt. min.). @ -[None done] What testing was considered but not performed or refused? (CT, X-rays, U/S, labs)? Why? @ -[None] What meds were considered but not given or refused? Why? @ -[None] Did you discuss the management of the patient with other professionals (professionals i.e. , JAS, INSTRUCTOR MODELING, lab, RT, psych nurse, delinquency prevention social worker, ocean freight agent, teacher, armed security officer, patient case manager)? Give summary @ -Case discussed with Dr. Valenzuela Was smoking cessation discussed for >3mins.? @ -[No] Was critical care preformed (if so, how long)? @ -[No] Were there social determinants of health that impacted care today? How? (Homelessness, low income, unemployed, alcoholism, drug addiction, transportation, low edu. Level, literacy, decrease access to med. care, intermediate, rehab)? @ -[No] Was there de-escalation of care discussed even if they declined (Discuss DNR or withdrawal of care, Hospice)? DNR status @ -[No] What co-morbidities impacted this encounter? (DM, HTN, Smoking, COPD, CAD, Cancer, CVA, ARF, Chemo, Hep., AIDS, mental health diagnosis, sleep apnea, morbid obesity)? @ -[None] Was patient admitted / discharged? Hospital course, mention meds given and route, prescriptions, significant lab abnormalities, going to OR and other pertinent info. @ -26-year-old male type I diabetic history of gastroparesis presenting with vomiting, dehydration. Vital signs are stable. No abdominal pain. Patient d oes have an elevated sugar but is not currently in DKA, normal anion gap, normal CO2. He has 2+ ketones in the urine but acetone is negative. He will benefit from IV hydration and symptomatic control. He'll be admitted to Dr. Valenzuela who is aware. Undiagnosed new problem with uncertain prognosis? @ -[No] Drug Therapy requiring intensive monitoring for toxicity (Heparin, Nitro, Insulin, Cardizem)? @ -[No] Were any procedures done? @ -[No] Diagnosis/symptom? @ -[default] Acute, or Chronic, or Acute on Chronic? @ -[default] Uncomplicated (without systemic symptoms) or Complicated (systemic symptoms)? @ -[default] Side effects of treatment? @ -[No] Exacerbation, Progression, or Severe Exacerbation? @ -[No] Poses a threat to life or bodily function? How? (Chest pain, [place], [place], pneumonia, PE, COPD, DKA, ARF, appy, cholecystitis, CVA, Diverticulitis, Homicidal, Suicidal, threat to staff... and all critical care pts) @ -[No] - Lab Data Result diagrams: 08/15/22 10:22 08/15/22 10:22 Lab Results 08/15/22 08/15/22 08/15/22 Range/Units 10:22 10:22 10:22 WBC 9.8 (3.8-10.6) k/uL RBC 4.33 (4.30-5.90) m/uL Hgb 13.5 (13.0-17.5) gm/dL Hct 40.5 (39.0-53.0) % MCV 93.4 (80.0-100.0) fL MCH 31.3 (25.0-35.0) pg MCHC 33.4 (31.0-37.0) g/dL RDW 13.3 (11.5-15.5) % Plt Count 298 (150-450) k/uL MPV 7.0 Neutrophils % 72 % Lymphocytes % 20 % Monocytes % 5 % Eosinophils % 2 % Basophils % 1 % Neutrophils # 7.0 (1.3-7.7) k/uL Lymphocytes # 1.9 (1.0-4.8) k/uL Monocytes # 0.5 (0-1.0) k/uL Eosinophils # 0.1 (0-0.7) k/uL Basophils # 0.1 (0-0.2) k/uL VBG pH (7.31-7.41) VBG pCO2 (37-51) mmHg VBG HCO3 (24-28) mmol/L Sodium 135 L (137-145) mmol/L Potassium 5.6 H (3.5-5.1) mmol/L Chloride 98 (98-107) mmol/L Carbon Dioxide 24 (22-30) mmol/L Anion Gap 13 mmol/L BUN 19 (9-20) mg/dL Creatinine 0.61 L (0.66-1.25) mg/dL Est GFR (CKD-EPI)AfAm >90 (>60 ml/min/1.73 sqM) Est GFR (CKD-EPI)NonAf >90 (>60 ml/min/1.73 sqM) Glucose 351 H (74-99) mg/dL Calcium 8.9 (8.4-10.2) mg/dL Magnesium 1.9 (1.6-2.3) mg/dL Total Bilirubin 0.7 (0.2-1.3) mg/dL AST 35 (17-59) U/L ALT 48 (4-49) U/L Alkaline Phosphatase 94 (38-126) U/L Total Protein 7.2 (6.3-8.2) g/dL Albumin 4.6 (3.5-5.0) g/dL Urine Color Colorless Urine Appearance Clear (Clear) Urine pH 6.5 (5.0-8.0) Ur Specific [place] 1.025 (1.001-1.035) Urine Protein Negative (Negative) Urine Glucose (UA) 4+ H (Negative) Urine Ketones 2+ H (Negative) Urine Blood Negative (Negative) Urine Nitrite Negative (Negative) Urine Bilirubin Negative (Negative) Urine Urobilinogen <2.0 (<2.0) mg/dL Ur Leukocyte Esterase Negative (Negative) Acetone, Qual Negative (Negative) 08/15/22 Range/Units 10:22 WBC (3.8-10.6) k/uL RBC (4.30-5.90) m/uL Hgb (13.0-17.5) gm/dL Hct (39.0-53.0) % MCV (80.0-100.0) fL MCH (25.0-35.0) pg MCHC (31.0-37.0) g/dL RDW (11.5-15.5) % Plt Count (150-450) k/uL MPV Neutrophils % % Lymphocytes % % Monocytes % % Eosinophils % % Basophils % % Neutrophils # (1.3-7.7) k/uL Lymphocytes # (1.0-4.8) k/uL Monocytes # (0-1.0) k/uL Eosinophils # (0-0.7) k/uL Basophils # (0-0.2) k/uL VBG pH 7.32 (7.31-7.41) VBG pCO2 52 H (37-51) mmHg VBG HCO3 26 (24-28) mmol/L Sodium (137-145) mmol/L Potassium (3.5-5.1) mmol/L Chloride (98-107) mmol/L Carbon Dioxide (22-30) mmol/L Anion Gap mmol/L BUN (9-20) mg/dL Creatinine (0.66-1.25) mg/dL Est GFR (CKD-EPI)AfAm (>60 ml/min/1.73 sqM) Est GFR (CKD-EPI)NonAf (>60 ml/min/1.73 sqM) Glucose (74-99) mg/dL Calcium (8.4-10.2) mg/dL Magnesium (1.6-2.3) mg/dL Total Bilirubin (0.2-1.3) mg/dL AST (17-59) U/L ALT (4-49) U/L Alkaline Phosphatase (38-126) U/L Total Protein (6.3-8.2) g/dL Albumin (3.5-5.0) g/dL Urine Color Urine Appearance (Clear) Urine pH (5.0-8.0) Ur Specific [place] (1.001-1.035) Urine Protein (Negative) Urine Glucose (UA) (Negative) Urine Ketones (Negative) Urine Blood (Negative) Urine Nitrite (Negative) Urine Bilirubin (Negative) Urine Urobilinogen (<2.0) mg/dL Ur Leukocyte Esterase (Negative) Acetone, Qual (Negative) Disposition Clinical Impression: Hyperglycemia, Nausea & vomiting, Dehydration Disposition: ADMITTED IP TO THIS HOSP Condition: Stable Is patient prescribed a controlled substance at d/c from ED?: No Referrals: Brown Valenzuela MD [Primary Care Provider] - 1-2 days Forms: [facility] Time of Disposition: 12:31
[2022-08-15 10:48] LABS: Appearance,Urine Clear (Clear); Basophils # (A) 0.1 k/uL (0-0.2); Basophils % (A) 1 %; Bilirubin,Urine Negative (Negative); Blood,Urine Negative (Negative); Color,Urine Colorless; Eosinophils # (A) 0.1 k/uL (0-0.7); Eosinophils % (A) 2 %; Glucose,Urine (UA) 4+ (Negative); HCT 40.5 % (39.0-53.0); HGB 13.5 gm/dL (13.0-17.5); Leukocyte Esterase,Urine Negative (Negative); Lymphocytes # (A) 1.9 k/uL (1.0-4.8); Lymphocytes % (A) 20 %; MCH 31.3 pg (25.0-35.0); MCHC 33.4 g/dL (31.0-37.0); MCV 93.4 fL (80.0-100.0); Monocytes # (A) 0.5 k/uL (0-1.0); Monocytes % (A) 5 %; Neutrophils % (A) 72 %; Nitrite,Urine Negative (Negative); PH, Urine 6.5 (5.0-8.0); Platelet Count 298 k/uL (150-450); Protein,Urine Negative (Negative); RBC 4.33 m/uL (4.30-5.90); RDW 13.3 % (11.5-15.5); Specific Gravity,Urine 1.025 (1.001-1.035); Urobilinogen,Urine <2.0 mg/dL (<2.0); WBC 9.8 k/uL (3.8-10.6)
[2022-08-15 10:51] LABS: Ketones,Urine 2+ (Negative)
[2022-08-15 10:52] LABS: VBG PH 7.32 (7.31-7.41)
[2022-08-15 11:11] LABS: ALT 48 U/L (4-49); AST 35 U/L (17-59); African American GFR (CKD) >90 (>60 ml/min/1.73 sqM); Albumin 4.6 g/dL (3.5-5.0); Alkaline Phosphatase 94 U/L (38-126); Anion Gap 13 mmol/L; Blood Urea Nitrogen 19 mg/dL (9-20); Calcium 8.9 mg/dL (8.4-10.2); Carbon Dioxide 24 mmol/L (22-30); Chloride 98 mmol/L (98-107); Glucose 351 mg/dL (74-99); Magnesium 1.9 mg/dL (1.6-2.3); Non-African American GFR(CKD) >90 (>60 ml/min/1.73 sqM); Potassium 5.6 mmol/L (3.5-5.1); Sodium 135 mmol/L (137-145); Total Bilirubin 0.7 mg/dL (0.2-1.3); Total Protein 7.2 g/dL (6.3-8.2)
[2022-08-15] MEDS ORDERED: ACETAMINOPHEN TAB 325 MG TAB PO PRN (12:26)
[2022-08-15] MEDS ORDERED: NALOXONE 0.4 MG/ML 1 ML VIAL IV PRN (12:26)
[2022-08-15] MEDS ORDERED: ONDANSETRON 4 MG/2 ML VIAL IVP PRN (12:26)
[2022-08-15] MEDS: INSULIN DETEMIR (LEVEMIR) 100 UNIT/ML SYR SQ SCH (13:42)
[2022-08-15] MEDS: SODIUM CHLORIDE 0.9% 1,000 ML IV SCH ×2 (13:44→19:26)
[2022-08-15 17:23] LABS: Glucose,Whole Blood 60 mg/dL (70-110)
[2022-08-15] MEDS: GABAPENTIN 300 MG CAP PO SCH ×2 (17:28→21:23)
[2022-08-15] MEDS: INSULIN ASPART (NovoLOG) 100 UNIT/ML VIAL SQ SCH (17:28)
[2022-08-15] MEDS ORDERED: METOCLOPRAMIDE 10 MG TAB PO SCH (17:30)
[2022-08-15 18:23] LABS: Glucose,Whole Blood 203 mg/dL (70-110)
[2022-08-15] MEDS: METOCLOPRAMIDE 10 MG TAB PO SCH (19:26)
[2022-08-15 20:52] LABS: Glucose,Whole Blood 265 mg/dL (70-110)
[2022-08-15 21:04] VITALS: RESP 16
[2022-08-16] MEDS: SODIUM CHLORIDE 0.9% 1,000 ML IV SCH (02:38)
[2022-08-16 02:52] VITALS: TEMP 97.7
[2022-08-16 07:13] LABS: Glucose,Whole Blood 237 mg/dL (70-110)
[2022-08-16 07:47] VITALS: BP 122/86; PULSE 94
[2022-08-16] MEDS: INSULIN ASPART (NovoLOG) 100 UNIT/ML VIAL SQ SCH ×2 (07:51→13:09)
[2022-08-16] MEDS: GABAPENTIN 300 MG CAP PO SCH (07:51)
[2022-08-16] MEDS: INSULIN DETEMIR (LEVEMIR) 100 UNIT/ML SYR SQ SCH (07:51)
[2022-08-16] MEDS: METOCLOPRAMIDE 10 MG TAB PO SCH ×2 (07:52→13:13)
[2022-08-16 11:39] LABS: Glucose,Whole Blood 130 mg/dL (70-110)
--- NOTE | 2022-08-17 22:00 | DS ---
DISCHARGE SUMMARY CHIEF COMPLAINT: Intractable nausea and vomiting and uncontrolled diabetes. HISTORY OF PRESENT ILLNESS AND PHYSICAL EXAMINATION: Details of this man's history and physical can be found in the initial workup. LABORATORY STUDIES: While in the hospital, he had laboratory studies, details of which can be found in the laboratory section of his chart. COURSE IN THE HOSPITAL: After admission, he was placed on bedrest, started on intravenous fluids and his blood sugars were brought under control. The vomiting was controlled as well. He is doing well and was up and about and eating well without any nausea, vomiting, and felt he could go home on the . He will go home on his usual activity, diet, and medications and will follow up in the office in several days. FINAL DIAGNOSES: 1. Uncontrolled type 1 insulin-dependent diabetes mellitus. 2. Intractable nausea and vomiting. 3. Dehydration. 4. Gastroparesis. OPERATIONS: None. CONSULTATIONS: None. CONDITION: He is improved. GRACE / ALDEN: [id number] /
--- NOTE | 2022-08-17 22:23 | HP ---
HISTORY AND PHYSICAL CHIEF COMPLAINT: Uncontrolled type 1 diabetes mellitus with intractable nausea and vomiting. HISTORY OF PRESENT ILLNESS: This is another of many ER visits and admissions for this 26-year-old type 1 diabetic. He is in now to the ER almost all the time for failure to take his insulin. He has many other issues including gastroparesis and depression. He came in with nausea and vomiting and with elevated blood sugar and was admitted. REVIEW OF SYSTEMS: He denies hematemesis, abdominal pain, fever, chills, diarrhea, melena, hematochezia, etc. Past medical history, family history, personal and social histories are all otherwise unremarkable or noncontributory and unchanged from his recent admitting discharge summaries. PHYSICAL EXAMINATION: VITAL SIGNS: Blood pressure is 129/70 with a pulse of 83, respirations of 34, and he is afebrile. GENERAL: Appeared to be uncomfortable. He was nauseated and vomiting. SKIN: Dry. Skin color is normal. HEENT: Head, ears, eyes, nose, mouth and throat were normal. NECK: Supple. CHEST: Clear. CARDIAC: Demonstrated sinus rhythm. ABDOMEN: Flat, soft, nontender. Bowel sounds are present. EXTREMITIES: Normal. NEUROLOGICAL: Intact. DIAGNOSES: Admitted to the hospital with diagnoses: 1. Uncontrolled type 1 insulin-dependent diabetes mellitus. 2. Gastroparesis. 3. Intractable nausea and vomiting. 4. Dehydration. 5. Depression. PLAN: 1. Bed rest. 2. IV fluids. 3. Antiemetics. 4. 4 rehydrate. 5. Control diabetes. MMODL / IJN: [id number] /
== END 2022-08-16 13:33 | disposition home or self-care (01) ==
LOC: EC 09:19 → 6NMEDSUR 12:27 → 5NMEDONC 17:19
PROVIDERS: ADMIT Family Medicine; ATTEND Family Medicine
DX: E10.65 Type 1 diabetes mellitus with hyperglycemia (principal); R11.2 Nausea with vomiting, unspecified; E86.0 Dehydration; K31.84 Gastroparesis; Z79.4 Long term (current) use of insulin; Z79.899 Other long term (current) drug therapy; E10.40 Type 1 diabetes mellitus with diabetic neuropathy, unspecified; E10.10 Type 1 diabetes mellitus with ketoacidosis without coma; F17.290 Nicotine dependence, other tobacco product, uncomplicated; Z82.3 Family history of stroke; Z83.438 Family history of other disorder of lipoprotein metabolism and other lipidemia; Z82.49 Family history of ischemic heart disease and other diseases of the circulatory system
CPT/HCPCS: 96361; 96374; 36415; 80053; 82803; 82009; 83735; 85025; 81003; G0378 ×3; J2405

== ENCOUNTER 2022-08-18 06:56 | Inpatient (IN) | payer MEDICAID, OTHER ==
[2022-08-18 08:18] LABS: Basophils % (A) 0 %; Eosinophils # (A) 0.4 k/uL (0-0.7); Eosinophils % (A) 4 %; HCT 38.6 % (39.0-53.0); HGB 12.9 gm/dL (13.0-17.5); Lymphocytes % (A) 19 %; MCH 31.3 pg (25.0-35.0); MCHC 33.3 g/dL (31.0-37.0); MCV 93.9 fL (80.0-100.0); Monocytes # (A) 0.7 k/uL (0-1.0); Monocytes % (A) 6 %; Neutrophils # (A) 7.3 k/uL (1.3-7.7); Neutrophils % (A) 70 %; Platelet Count 287 k/uL (150-450); RBC 4.11 m/uL (4.30-5.90); RDW 13.3 % (11.5-15.5); WBC 10.5 k/uL (3.8-10.6)
[2022-08-18 08:32] LABS: ALT 24 U/L (4-49); AST 15 U/L (17-59); African American GFR (CKD) >90 (>60 ml/min/1.73 sqM); Albumin 3.9 g/dL (3.5-5.0); Alkaline Phosphatase 93 U/L (38-126); Anion Gap 7 mmol/L; Blood Urea Nitrogen 23 mg/dL (9-20); Carbon Dioxide 30 mmol/L (22-30); Chloride 95 mmol/L (98-107); Non-African American GFR(CKD) >90 (>60 ml/min/1.73 sqM); Potassium 4.6 mmol/L (3.5-5.1); Sodium 132 mmol/L (137-145); Total Bilirubin 0.5 mg/dL (0.2-1.3); Total Protein 6.2 g/dL (6.3-8.2)
[2022-08-18 08:37] LABS: Glucose 506 mg/dL (74-99)
[2022-08-18] MEDS ORDERED: INSULIN REGULAR 100 UNIT/ML VIAL (IM/SQ) SQ ONE ×2 (08:38→10:37)
[2022-08-18] MEDS ORDERED: SODIUM CHLORIDE 0.9% 2,000 ML IV ONE (08:38)
[2022-08-18 09:53] LABS: Glucose,Whole Blood 526 mg/dL (70-110)
[2022-08-18] MEDS ORDERED: SODIUM CHLORIDE 0.9% 1,000 ML IV ONE (10:07)
[2022-08-18 10:34] LABS: Glucose,Whole Blood 530 mg/dL (70-110)
[2022-08-18 10:55] LABS: Appearance,Urine Clear (Clear); Bilirubin,Urine Negative (Negative); Blood,Urine Negative (Negative); Color,Urine Colorless; Glucose,Urine (UA) 4+ (Negative); Ketones,Urine 1+ (Negative); Leukocyte Esterase,Urine Negative (Negative); Nitrite,Urine Negative (Negative); PH, Urine 5.5 (5.0-8.0); Protein,Urine Negative (Negative); Specific Gravity,Urine 1.031 (1.001-1.035); Urobilinogen,Urine <2.0 mg/dL (<2.0)
[2022-08-18 11:29] LABS: Glucose,Whole Blood 376 mg/dL (70-110)
[2022-08-18 11:42] LABS: Amphetamine Screen,Urine Not Detected (NotDetected); Barbiturate Screen,Urine Not Detected (NotDetected); Benzodiazepines Screen,Urine Not Detected (NotDetected); Cocaine Screen,Urine Not Detected (NotDetected); Methadone Screen, Urine Not Detected (NotDetected); Opiate Screen,Urine Not Detected (NotDetected); Oxycodone Screen, Urine Not Detected (NotDetected); Phencyclidine Screen,Urine Not Detected (NotDetected); Tricyclic Antidepressant,Urine Not Detected (NotDetected); Urn Cannabinoid Scrn Detected (NotDetected)
[2022-08-18 12:26] LABS: Glucose,Whole Blood 243 mg/dL (70-110)
[2022-08-18] MEDS: SODIUM CHLORIDE 0.9% 1,000 ML IV SCH ×2 (12:29→17:18)
--- NOTE | 2022-08-18 13:35 | ED ---
Psych HPI - General Chief Complaint: Psychiatric Symptoms Stated Complaint: Mental Health Time Seen by Provider: 08/18/22 07:15 Source: patient Mode of arrival: ambulatory - History of Present Illness Initial Comments: 26-year-old male with past medical history of asthma, type 1 diabetes who presents emergency Department reporting suicidal ideations. States that he has been extremely depressed and attempted to harm himself last night by holding a gun to his head. It was his friend's gun. His friend took it away from him and dropped him off at the hospital today. He denies any alcohol use. He admits he has been taking his insulin. Was recently just discharged. No other alleviating, precipitating or modifying factors - Related Data Home Medications Medication Instructions Recorded Confirmed INSULIN ASPART (NovoLOG) [NovoLOG 10 unit SQ AC-TID 06/29/21 08/21/22 (formulary)] Gabapentin 600 mg PO TID 12/19/21 08/21/22 Insulin Detemir (Levemir) [Levemir] 25 unit SQ DAILY 04/11/22 08/21/22 Allergies Allergy/AdvReac Type Severity Reaction Status Date / Time No Known Allergies Allergy Verified 08/18/22 14:16 Review of Systems ROS Statement: Those systems with pertinent positive or pertinent negative responses have been documented in the HPI. ROS Other: All systems not noted in ROS Statement are negative. Past Medical History Past Medical History: Asthma, Diabetes Mellitus, Neurologic Disorder, Skin Disorder Additional Past Medical History / Comment(s): IDDM type I, neuropathy bilateral feet, DKA, eczema. History of Any Multi-Drug Resistant Organisms: None Reported Past Surgical History: Adenoidectomy Additional Past Surgical History / Comment(s): 2002 Past Anesthesia/Blood Transfusion Reactions: No Reported Reaction Past Psychological History: Anxiety, Depression Smoking Status: Current every day smoker, Vaper Past Alcohol Use History: None Reported Past Drug Use History: Marijuana - Past Family History Mother Family Medical History: CVA/TIA Additional Family Medical History / Comment(s): TIA Father Family Medical History: Hyperlipidemia, Hypertension Additional Family Medical History / Comment(s): . General Exam Limitations: no limitations General appearance: alert, in no apparent distress Head exam: Present: atraumatic, normocephalic, normal inspection Eye exam: Present: normal appearance, PERRL, EOMI. Absent: scleral icterus, conjunctival injection, periorbital swelling ENT exam: Present: normal exam, mucous membranes moist Neck exam: Present: normal inspection. Absent: tenderness, meningismus, lymphadenopathy Respiratory exam: Present: normal lung sounds bilaterally. Absent: respiratory distress, wheezes, rales, rhonchi, stridor Cardiovascular Exam: Present: regular rate, normal rhythm, normal heart sounds. Absent: systolic murmur, diastolic murmur, rubs, gallop, clicks GI/Abdominal exam: Present: soft, normal bowel sounds. Absent: distended, tenderness, guarding, rebound, rigid Extremities exam: Present: normal inspection, full ROM, normal capillary refill. Absent: tenderness, pedal edema, joint swelling, calf tenderness Back exam: Present: normal inspection Neurological exam: Present: alert, oriented X3, CN II-XII intact Psychiatric exam: Present: depressed, flat affect Skin exam: Present: warm, dry, intact, normal color. Absent: rash Course Vital Signs 08/18/22 08/18/22 08/18/22 07:14 11:59 16:42 Temperature 98.1 F 98.1 F Pulse Rate 90 73 73 Respiratory 20 18 18 Rate Blood Pressure 120/86 102/56 102/56 O2 Sat by Pulse 99 97 97 Oximetry Medical Decision Making - Medical Decision Making Was pt. sent in by a medical professional or institution (JAS Lucero, FISHING [employer]SEMBLER, urgent care, hospital, or jail...) When possible be specific @ -No Did you speak to anyone other than the patient for history (EMS, parent, family, police, friend...)? What history was obtained from this source @ -No Did you review nursing and triage notes (agree or disagree)? Why? @ -I reviewed and agree with nursing and triage notes Were old charts reviewed (outside hosp., previous admission, EMS record, old EKG, old radiological studies, urgent care reports/EKG's, jail records)? Report findings @ -Previous records reviewed Differential Diagnosis (chest pain, altered mental status, abdominal pain women, abdominal pain men, vaginal bleeding, weakness, fever, dyspnea, syncope, headache, dizziness, GI bleed, back pain, seizure, CVA, palpatations, mental health, musculoskeletal)? @ -suicidal ideations, depression, anxiety, substance abuse EKG interpreted by me (3pts min.). @ -None done X-rays interpreted by me (1pt min.). @ -None done CT interpreted by me (1pt min.). @ -None done U/S interpreted by me (1pt. min.). @ -None done What testing was considered but not performed or refused? (CT, X-rays, U/S, labs)? Why? @ -None What meds were considered but not given or refused? Why? @ -None Did you discuss the management of the patient with other professionals (professionals i.e. , PA, FISHING LURE ASSEMBLER, lab, RT, psych nurse, geriatric social worker, adobe layer helper, teacher, casino surveillance officer, disability case manager)? Give summary @ -EPS nurse Was smoking cessation discussed for >3mins.? @ -No Was critical care preformed (if so, how long)? @ -No Were there social determinants of health that impacted care today? How? (Homelessness, low income, unemployed, alcoholism, drug addiction, transportation, low edu. Level, literacy, decrease access to med. care, nursing home, rehab)? @ -No Was there de-escalation of care discussed even if they declined (Discuss DNR or withdrawal of care, Hospice)? DNR status @ -No What co-morbidities impacted this encounter? (DM, HTN, Smoking, COPD, CAD, Cance r, CVA, ARF, Chemo, Hep., AIDS, mental health diagnosis, sleep apnea, morbid obesity)? @ -type 1 DM Was patient admitted / discharged? Hospital course, mention meds given and route, prescriptions, significant lab abnormalities, going to OR and other pertinent info. @ -Upon arrival patient was placed into room 13. A thorough history and phy sical exam was performed. Laboratory studies were conducted. Patient does have an elevated glucose. He is given 2 L of normal saline and 10 units of subcu insulin. Glucose is rechecked and improved. EPS sees the patient and they feel that the patient needs to be admitted. He is taken to the floor in stable condition Undiagnosed new problem with uncertain prognosis? @ -Yes Drug Therapy requiring intensive monitoring for toxicity (Heparin, Nitro, Insulin, Cardizem)? @ -No Were any procedures done? @ -No Diagnosis/symptom? @ -suicidal ideations, depression, hyperglycemia Acute, or Chronic, or Acute on Chronic? @ -acute on chronic Uncomplicated (without systemic symptoms) or Complicated (systemic symptoms)? @ -complicated Side effects of treatment? @ -No Exacerbation, Progression, or Severe Exacerbation? @ -No Poses a threat to life or bodily function? How? (Chest pain, USA, [place], pneumonia, PE, COPD, DKA, ARF, appy, cholecystitis, CVA, Diverticulitis, Homicidal, Suicidal, threat to staff... and all critical care pts) @ -yes ] - Lab Data Result diagrams: 08/18/22 08:05 08/21/22 12:16 Lab Results 08/18/22 08/18/22 08/18/22 Range/Units 08:05 08:05 08:05 WBC 10.5 (3.8-10.6) k/uL RBC 4.11 L (4.30-5.90) m/uL Hgb 12.9 L (13.0-17.5) gm/dL Hct 38.6 L (39.0-53.0) % MCV 93.9 (80.0-100.0) fL MCH 31.3 (25.0-35.0) pg MCHC 33.3 (31.0-37.0) g/dL RDW 13.3 (11.5-15.5) % Plt Count 287 (150-450) k/uL MPV 7.0 Neutrophils % 70 % Lymphocytes % 19 % Monocytes % 6 % Eosinophils % 4 % Basophils % 0 % Neutrophils # 7.3 (1.3-7.7) k/uL Lymphocytes # 2.0 (1.0-4.8) k/uL Monocytes # 0.7 (0-1.0) k/uL Eosinophils # 0.4 (0-0.7) k/uL Basophils # 0.0 (0-0.2) k/uL Sodium 132 L (137-145) mmol/L Potassium 4.6 (3.5-5.1) mmol/L Chloride 95 L (98-107) mmol/L Carbon Dioxide 30 (22-30) mmol/L Anion Gap 7 mmol/L BUN 23 H (9-20) mg/dL Creatinine 0.58 L (0.66-1.25) mg/dL Est GFR (CKD-EPI)AfAm >90 (>60 ml/min/1.73 sqM) Est GFR (CKD-EPI)NonAf >90 (>60 ml/min/1.73 sqM) Glucose 506 H* (74-99) mg/dL POC Glucose (mg/dL) (70-110) mg/dL POC Glu Strategic Advisor ID Estimated Ave Glu mg/dL Hemoglobin A1c (0.0-6.0) % Calcium 9.0 (8.4-10.2) mg/dL Total Bilirubin 0.5 (0.2-1.3) mg/dL AST 15 L (17-59) U/L ALT 24 (4-49) U/L Alkaline Phosphatase 93 (38-126) U/L Total Protein 6.2 L (6.3-8.2) g/dL Albumin 3.9 (3.5-5.0) g/dL Triglycerides (0.00-149.00) mg/dL Cholesterol (0.00-200.00) mg/dL LDL Cholesterol, Calc (0.0-131.0) mg/dL VLDL Cholesterol, Calc (5.00-40.00) mg/dL HDL Cholesterol (40.00-60.00) mg/dL Cholesterol/HDL Ratio Ratio TSH (0.465-4.680) mIU/L Urine Color Colorless Urine Appearance Clear (Clear) Urine pH 5.5 (5.0-8.0) Ur Specific [place] 1.031 (1.001-1.035) Urine Protein Negative (Negative) Urine Glucose (UA) 4+ H (Negative) Urine Ketones 1+ H (Negative) Urine Blood Negative (Negative) Urine Nitrite Negative (Negative) Urine Bilirubin Negative (Negative) Urine Urobilinogen <2.0 (<2.0) mg/dL Ur Leukocyte Esterase Negative (Negative) Urine Opiates Screen Not Detected (NotDetected) Ur Oxycodone Screen Not Detected (NotDetected) Urine Methadone Screen Not Detected (NotDetected) Ur Propoxyphene Screen Not Detected (NotDetected) Ur Barbiturates Screen Not Detected (NotDetected) U Tricyclic Antidepress Not Detected (NotDetected) Ur Phencyclidine Scrn Not Detected (NotDetected) Ur Amphetamines Screen Not Detected (NotDetected) U Methamphetamines Scrn Not Detected (NotDetected) U Benzodiazepines Scrn Not Detected (NotDetected) Urine Cocaine Screen Not Detected (NotDetected) U Marijuana (THC) Screen Detected H (NotDetected) Coronavirus (PCR) (Not Detectd) 08/18/22 08/18/22 08/18/22 Range/Units 08:05 08:05 09:50 WBC (3.8-10.6) k/uL RBC (4.30-5.90) m/uL Hgb (13.0-17.5) gm/dL Hct (39.0-53.0) % MCV (80.0-100.0) fL MCH (25.0-35.0) pg MCHC (31.0-37.0) g/dL RDW (11.5-15.5) % Plt Count (150-450) k/uL MPV Neutrophils % % Lymphocytes % % Monocytes % % Eosinophils % % Basophils % % Neutrophils # (1.3-7.7) k/uL Lymphocytes # (1.0-4.8) k/uL Monocytes # (0-1.0) k/uL Eosinophils # (0-0.7) k/uL Basophils # (0-0.2) k/uL Sodium (137-145) mmol/L Potassium (3.5-5.1) mmol/L Chloride (98-107) mmol/L Carbon Dioxide (22-30) mmol/L Anion Gap mmol/L BUN (9-20) mg/dL Creatinine (0.66-1.25) mg/dL Est GFR (CKD-EPI)AfAm (>60 ml/min/1.73 sqM) Est GFR (CKD-EPI)NonAf (>60 ml/min/1.73 sqM) Glucose (74-99) mg/dL POC Glucose (mg/dL) 526 H (70-110) mg/dL POC Glu Strategic Advisor ID Bella Guzman Estimated [address] Glu mg/dL 258 Hemoglobin A1c 10.6 H (0.0-6.0) % Calcium (8.4-10.2) mg/dL Total Bilirubin (0.2-1.3) mg/dL AST (17-59) U/L ALT (4-49) U/L Alkaline Phosphatase (38-126) U/L Total Protein (6.3-8.2) g/dL Albumin (3.5-5.0) g/dL Triglycerides 163.00 H (0.00-149.00) mg/dL Cholesterol 160.00 (0.00-200.00) mg/dL LDL Cholesterol, Calc 76.8 (0.0-131.0) mg/dL VLDL Cholesterol, Calc 32.60 (5.00-40.00) mg/dL HDL Cholesterol 50.60 (40.00-60.00) mg/dL Cholesterol/HDL Ratio 3.16 Ratio TSH 0.343 L (0.465-4.680) mIU/L Urine Color Urine Appearance (Clear) Urine pH (5.0-8.0) Ur Specific [place] (1.001-1.035) Urine Protein (Negative) Urine Glucose (UA) (Negative) Urine Ketones (Negative) Urine Blood (Negative) Urine Nitrite (Negative) Urine Bilirubin (Negative) Urine Urobilinogen (<2.0) mg/dL Ur Leukocyte Esterase (Negative) Urine Opiates Screen (NotDetected) Ur Oxycodone Screen (NotDetected) Urine Methadone Screen (NotDetected) Ur Propoxyphene Screen (NotDetected) Ur Barbiturates Screen (NotDetected) U Tricyclic Antidepress (NotDetected) Ur Phencyclidine Scrn (NotDetected) Ur Amphetamines Screen (NotDetected) U Methamphetamines Scrn (NotDetected) U Benzodiazepines Scrn (NotDetected) Urine Cocaine Screen (NotDetected) U Marijuana (THC) Screen (NotDetected) Coronavirus (PCR) (Not Detectd) 08/18/22 08/18/22 08/18/22 Range/Units 10:31 11:25 12:23 WBC (3.8-10.6) k/uL RBC (4.30-5.90) m/uL Hgb (13.0-17.5) gm/dL Hct (39.0-53.0) % MCV (80.0-100.0) fL MCH (25.0-35.0) pg MCHC (31.0-37.0) g/dL RDW (11.5-15.5) % Plt Count (150-450) k/uL MPV Neutrophils % % Lymphocytes % % Monocytes % % Eosinophils % % Basophils % % Neutrophils # (1.3-7.7) k/uL Lymphocytes # (1.0-4.8) k/uL Monocytes # (0-1.0) k/uL Eosinophils # (0-0.7) k/uL Basophils # (0-0.2) k/uL Sodium (137-145) mmol/L Potassium (3.5-5.1) mmol/L Chloride (98-107) mmol/L Carbon Dioxide (22-30) mmol/L Anion Gap mmol/L BUN (9-20) mg/dL Creatinine (0.66-1.25) mg/dL Est GFR (CKD-EPI)AfAm (>60 ml/min/1.73 sqM) Est GFR (CKD-EPI)NonAf (>60 ml/min/1.73 sqM) Glucose (74-99) mg/dL POC Glucose (mg/dL) 530 H 376 H 243 H (70-110) mg/dL POC Glu Strategic Advisor Bella Wright, Bella Garcia [address] Glu mg/dL Hemoglobin A1c (0.0-6.0) % Calcium (8.4-10.2) mg/dL Total Bilirubin (0.2-1.3) mg/dL AST (17-59) U/L ALT (4-49) U/L Alkaline Phosphatase (38-126) U/L Total Protein (6.3-8.2) g/dL Albumin (3.5-5.0) g/dL Triglycerides (0.00-149.00) mg/dL Cholesterol (0.00-200.00) mg/dL LDL Cholesterol, Calc (0.0-131.0) mg/dL VLDL Cholesterol, Calc (5.00-40.00) mg/dL HDL Cholesterol (40.00-60.00) mg/dL Cholesterol/HDL Ratio Ratio TSH (0.465-4.680) mIU/L Urine Color Urine Appearance (Clear) Urine pH (5.0-8.0) Ur Specific [place] (1.001-1.035) Urine Protein (Negative) Urine Glucose (UA) (Negative) Urine Ketones (Negative) Urine Blood (Negative) Urine Nitrite (Negative) Urine Bilirubin (Negative) Urine Urobilinogen (<2.0) mg/dL Ur Leukocyte Esterase (Negative) Urine Opiates Screen (NotDetected) Ur Oxycodone Screen (NotDetected) Urine Methadone Screen (NotDetected) Ur Propoxyphene Screen (NotDetected) Ur Barbiturates Screen (NotDetected) U Tricyclic Antidepress (NotDetected) Ur Phencyclidine Scrn (NotDetected) Ur Amphetamines Screen (NotDetected) U Methamphetamines Scrn (NotDetected) U Benzodiazepines Scrn (NotDetected) Urine Cocaine Screen (NotDetected) U Marijuana (THC) Screen (NotDetected) Coronavirus (PCR) (Not Detectd) 08/18/22 Range/Units 14:23 WBC (3.8-10.6) k/uL RBC (4.30-5.90) m/uL Hgb (13.0-17.5) gm/dL Hct (39.0-53.0) % MCV (80.0-100.0) fL MCH (25.0-35.0) pg MCHC (31.0-37.0) g/dL RDW (11.5-15.5) % Plt Count (150-450) k/uL MPV Neutrophils % % Lymphocytes % % Monocytes % % Eosinophils % % Basophils % % Neutrophils # (1.3-7.7) k/uL Lymphocytes # (1.0-4.8) k/uL Monocytes # (0-1.0) k/uL Eosinophils # (0-0.7) k/uL Basophils # (0-0.2) k/uL Sodium (137-145) mmol/L Potassium (3.5-5.1) mmol/L Chloride (98-107) mmol/L Carbon Dioxide (22-30) mmol/L Anion Gap mmol/L BUN (9-20) mg/dL Creatinine (0.66-1.25) mg/dL Est GFR (CKD-EPI)AfAm (>60 ml/min/1.73 sqM) Est GFR (CKD-EPI)NonAf (>60 ml/min/1.73 sqM) Glucose (74-99) mg/dL POC Glucose (mg/dL) (70-110) mg/dL POC Glu Strategic Advisor ID Estimated Ave Glu mg/dL Hemoglobin A1c (0.0-6.0) % Calcium (8.4-10.2) mg/dL Total Bilirubin (0.2-1.3) mg/dL AST (17-59) U/L ALT (4-49) U/L Alkaline Phosphatase (38-126) U/L Total Protein (6.3-8.2) g/dL Albumin (3.5-5.0) g/dL Triglycerides (0.00-149.00) mg/dL Cholesterol (0.00-200.00) mg/dL LDL Cholesterol, Calc (0.0-131.0) mg/dL VLDL Cholesterol, Calc (5.00-40.00) mg/dL HDL Cholesterol (40.00-60.00) mg/dL Cholesterol/HDL Ratio Ratio TSH (0.465-4.680) mIU/L Urine Color Urine Appearance (Clear) Urine pH (5.0-8.0) Ur Specific [place] (1.001-1.035) Urine Protein (Negative) Urine Glucose (UA) (Negative) Urine Ketones (Negative) Urine Blood (Negative) Urine Nitrite (Negative) Urine Bilirubin (Negative) Urine Urobilinogen (<2.0) mg/dL Ur Leukocyte Esterase (Negative) Urine Opiates Screen (NotDetected) Ur Oxycodone Screen (NotDetected) Urine Methadone Screen (NotDetected) Ur Propoxyphene Screen (NotDetected) Ur Barbiturates Screen (NotDetected) U Tricyclic Antidepress (NotDetected) Ur Phencyclidine Scrn (NotDetected) Ur Amphetamines Screen (NotDetected) U Methamphetamines Scrn (NotDetected) U Benzodiazepines Scrn (NotDetected) Urine Cocaine Screen (NotDetected) U Marijuana (THC) Screen (NotDetected) Coronavirus (PCR) Not Detected (Not Detectd) Disposition Clinical Impression: Depression, IDDM (insulin dependent diabetes mellitus), Dehydration Disposition: ADMITTED IP TO THIS [facility] Condition: Serious
[2022-08-18] MEDS ORDERED: ACETAMINOPHEN TAB 325 MG TAB PO PRN (16:24)
[2022-08-18] MEDS ORDERED: MAG HYDROX/AL HYDROX/SIMETH 30 ML CUP PO PRN (16:24)
[2022-08-18] MEDS ORDERED: HALOPERIDOL LACTATE 5 MG/ML 1 ML VIAL IM PRN (16:24)
[2022-08-18] MEDS ORDERED: MAGNESIUM HYDROXIDE 2,400 MG/10 ML CUP PO PRN (16:24)
[2022-08-18] MEDS ORDERED: LORazepam 2 MG/ML INJ IM PRN (16:27)
[2022-08-18] MEDS ORDERED: haloperidoL 5 MG TAB PO PRN (16:28)
[2022-08-18 16:55] LABS: Glucose,Whole Blood 111 mg/dL (70-110)
[2022-08-18 18:07] LABS: Glucose,Whole Blood 156 mg/dL (70-110)
[2022-08-18] MEDS: INSULIN ASPART (NovoLOG) 100 UNIT/ML VIAL SQ SCH (19:25)
[2022-08-18] MEDS: GABAPENTIN 300 MG CAP PO SCH (21:20)
[2022-08-18] MEDS: LORazepam 1 MG TAB PO PRN (21:21)
[2022-08-19 02:14] LABS: Glucose,Whole Blood 379 mg/dL (70-110)
[2022-08-19] MEDS ORDERED: INSULIN ASPART (NovoLOG) 100 UNIT/ML VIAL SQ ONE (02:43)
[2022-08-19 07:49] LABS: Glucose,Whole Blood 180 mg/dL (70-110)
[2022-08-19] MEDS: GABAPENTIN 300 MG CAP PO SCH ×3 (09:00→21:15)
[2022-08-19] MEDS: INSULIN DETEMIR (LEVEMIR) 100 UNIT/ML SYR SQ SCH (09:01)
[2022-08-19] MEDS: INSULIN ASPART (NovoLOG) 100 UNIT/ML VIAL SQ SCH ×7 (09:02→20:29)
--- NOTE | 2022-08-19 11:35 | P.HP ---
Psychiatric H&P - . H&P Date: 08/19/22 History & Physical: Allergies Allergy/AdvReac Type Severity Reaction Status Date / Time No Known Allergies Allergy Verified 08/18/22 14:16 Vital Signs Temp 97.7 F 08/19/22 06:29 Pulse 92 08/19/22 06:29 Resp 16 08/19/22 06:29 BP 99/60 08/19/22 06:29 Pulse Ox 98 08/19/22 06:29 FiO2 Intake & Output 08/18/22 08/19/22 08/19/22 18:59 06:59 18:59 Weight 68.039 kg Laboratory Last Values WBC 10.5 k/uL (3.8-10.6) 08/18/22 08:05 RBC 4.11 m/uL (4.30-5.90) L 08/18/22 08:05 Hgb 12.9 gm/dL (13.0-17.5) L 08/18/22 08:05 Hct 38.6 % (39.0-53.0) L 08/18/22 08:05 MCV 93.9 fL (80.0-100.0) 08/18/22 08:05 MCH 31.3 pg (25.0-35.0) 08/18/22 08:05 MCHC 33.3 g/dL (31.0-37.0) 08/18/22 08:05 RDW 13.3 % (11.5-15.5) 08/18/22 08:05 Plt Count 287 k/uL (150-450) 08/18/22 08:05 MPV 7.0 08/18/22 08:05 Neutrophils % 70 % 08/18/22 08:05 Lymphocytes % 19 % 08/18/22 08:05 Monocytes % 6 % 08/18/22 08:05 Eosinophils % 4 % 08/18/22 08:05 Basophils % 0 % 08/18/22 08:05 Neutrophils # 7.3 k/uL (1.3-7.7) 08/18/22 08:05 Lymphocytes # 2.0 k/uL (1.0-4.8) 08/18/22 08:05 Monocytes # 0.7 k/uL (0-1.0) 08/18/22 08:05 Eosinophils # 0.4 k/uL (0-0.7) 08/18/22 08:05 Basophils # 0.0 k/uL (0-0.2) 08/18/22 08:05 Sodium 132 mmol/L (137-145) L 08/18/22 08:05 Potassium 4.6 mmol/L (3.5-5.1) 08/18/22 08:05 Chloride 95 mmol/L (98-107) L 08/18/22 08:05 Carbon Dioxide 30 mmol/L (22-30) 08/18/22 08:05 Anion Gap 7 mmol/L 08/18/22 08:05 BUN 23 mg/dL (9-20) H 08/18/22 08:05 Creatinine 0.58 mg/dL (0.66-1.25) L 08/18/22 08:05 Est GFR (CKD-EPI)AfAm >90 (>60 ml/min/1.73 sqM) 08/18/22 08:05 Est GFR (CKD-EPI)NonAf >90 (>60 ml/min/1.73 sqM) 08/18/22 08:05 Glucose 506 mg/dL (74-99) H* 08/18/22 08:05 POC Glucose (mg/dL) 180 mg/dL (70-110) H 08/19/22 07:47 POC Glu Institutional Cook ID Madonna Mcconnell 08/19/22 07:[address] Glu mg/dL 258 08/18/22 08:05 Hemoglobin A1c 10.6 % (0.0-6.0) H 08/18/22 08:05 Calcium 9.0 mg/dL (8.4-10.2) 08/18/22 08:05 Total Bilirubin 0.5 mg/dL (0.2-1.3) 08/18/22 08:05 AST 15 U/L (17-59) L 08/18/22 08:05 ALT 24 U/L (4-49) 08/18/22 08:05 Alkaline Phosphatase 93 U/L (38-126) 08/18/22 08:05 Total Protein 6.2 g/dL (6.3-8.2) L 08/18/22 08:05 Albumin 3.9 g/dL (3.5-5.0) 08/18/22 08:05 TSH 0.343 mIU/L (0.465-4.680) L 08/18/22 08:05 Urine Color Colorless 08/18/22 08:05 Urine Appearance Clear (Clear) 08/18/22 08:05 Urine pH 5.5 (5.0-8.0) 08/18/22 08:05 Ur Specific [place] 1.031 (1.001-1.035) 08/18/22 08:05 Urine Protein Negative (Negative) 08/18/22 08:05 Urine Glucose (UA) 4+ (Negative) H 08/18/22 08:05 Urine Ketones 1+ (Negative) H 08/18/22 08:05 Urine Blood Negative (Negative) 08/18/22 08:05 Urine Nitrite Negative (Negative) 08/18/22 08:05 Urine Bilirubin Negative (Negative) 08/18/22 08:05 Urine Urobilinogen <2.0 mg/dL (<2.0) 08/18/22 08:05 Ur Leukocyte Esterase Negative (Negative) 08/18/22 08:05 Urine Opiates Screen Not Detected (NotDetected) 08/18/22 08:05 Ur Oxycodone Screen Not Detected (NotDetected) 08/18/22 08:05 Urine Methadone Screen Not Detected (NotDetected) 08/18/22 08:05 Ur Propoxyphene Screen Not Detected (NotDetected) 08/18/22 08:05 Ur Barbiturates Screen Not Detected (NotDetected) 08/18/22 08:05 U Tricyclic Antidepress Not Detected (NotDetected) 08/18/22 08:05 Ur Phencyclidine Scrn Not Detected (NotDetected) 08/18/22 08:05 Ur Amphetamines Screen Not Detected (NotDetected) 08/18/22 08:05 U Methamphetamines Scrn Not Detected (NotDetected) 08/18/22 08:05 U Benzodiazepines Scrn Not Detected (NotDetected) 08/18/22 08:05 Urine Cocaine Screen Not Detected (NotDetected) 08/18/22 08:05 U Marijuana (THC) Screen Detected (NotDetected) H 08/18/22 08:05 Coronavirus (PCR) Not Detected (Not Detectd) 08/18/22 14:23 08/19/22 11:20 IDENTIFYING DATA: Patient is a single, unemployed, 27-year-old male with significant history of diabetes mellitus type 1, depression, and borderline personality disorder, 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 HPI: Patient presented to the hospital yesterday and apparently was dropped off by a friend. Patient has a hx of depression, borderline PD and uncontrolled DM. Patient is currently homeless, has had multiple psychioatric admissions as well as medical admissions and ER visits for diabetic complication. Patient was admitted voluntarily to the mental health unit. He states that he continues to feel hopeless and worthless. He states that he is having suicidal thoughts and depression. Claimed that he is having a lot of complication with his diabetes including pain and also gastroparesis. He states that he does take his insulin long-acting shot every morning and tries to take it with meals. His glucose was over 500 on admission. He was not agitated. He claims that he was cleaning his friend's guns with him in a shed and states that he took one of the guns and put it to his head and was going to pull the trigger. He claims that "I know people were tackling me". She He continues to have chronically superficial insight and judgment. He states that his sleep has been poor, depressed mood and anxiety anxious. He states that he is still having suicidal thoughts, no intent or plan today. He is denying any homicidal ideations and denying any auditory or visual hallucinations. PAST PSYCHIATRIC HISTORY: The patient has had multiple psychiatric hospitalizations. He is nonadherent with any prescribed medications and does not follow up with any psychiatrist or therapist on a regular basis. Patient has been tried on several different antidepressants in the past however has been nonadherent. Patient has had jay ral suicide attempts in the past. Patient was last admitted to the mental health unit in December 2021 order has had several inpatient medical admissions and also ER visits with psychiatric consultations. Has a history of cluster B personality disorder and depression. PMH: Past Medical History: Asthma, Diabetes Mellitus, Neurologic Disorder, Skin Disorder Additional Past Medical History / Comment(s): IDDM type I, neuropathy bilateral feet, DKA, eczema. History of Any Multi-Drug Resistant Organisms: None Reported Past Surgical History: Adenoidectomy Additional Past Surgical History / Comment(s): 2002 Past Anesthesia/Blood Transfusion Reactions: No Reported Reaction Past Psychological History: Anxiety, Depression Smoking Status: Never smoker, Vaper Past Alcohol Use History: Occasional Past Drug Use History: Marijuana ALLERGIES: NO KNOWN DRUG ALLERGIES CHEMICAL DEPENDENCY HISTORY: The patient reports binge alcohol use episodes in the past. He does admit to marijuana use, up to a quarter ounce per day. He has a history of Xanax abuse however denies any Xanax use over the past few weeks. FAMILY PSYCHIATRIC/SUBSTANCE USE HISTORY: Denies SOCIAL HISTORY: Patient was born and raised in [place]. He dropped out in the 11th grade. He is currently homeless. 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 MENTAL STATUS EXAM: General Appearance: Patient appears to be tall, thin, alert, stated age. Patient appears to have a slightly disheveled hygiene and grooming. Dressed in street clothing. Behavior: Patient is seated without any agitated behavior. Eye contact is inte rmittent. Minimal Speech: Patient's speech is fluent and nonpressured. Monotone. Mood/Affect: Patient reports their mood is "depressed and anxious", affect is constricted. Suicidality/Homicidality: Patient admits to suicidal thoughts, no intent or plan. Denying any homicidal ideations. Perceptions: Patient denies any visual hallucinations and denies any auditory hallucinations Though content/process: There is no evidence of any delusional thought content and thought process is linear and goal-directed. [place]. \\Rationalizing. Endorsing hopelessness. Memory and concentration: AOX3, grossly intact for the purposes of this session. Can spell "WORLD" backwards Judgment and insight: poor/impulsive. IMPRESSIONS: Major depressive disorder without psychotic features Borderline personality disorder anxiety disorder NOS Cannabis use disorder homelessness STRENGTHS/WEAKNESSES: strength is that patient is [resilient]. Weakness is that patient [has poor judgment and is impulsive, poor social support.] INTELLECT: [average] PLAN: -Patient is admitted under [voluntary] status to MHU for stabilization of psychiatric symptoms and safety. Patient has signed [adult voluntary form and] [medication consent] and is placed in patient's chart. -Medications : Will start patient on []cymbalta 30 mg daily for mood/anxiety/pain, doxepin 10 mg qhs for insomnia. -Ativan [and Haldol] PRN for agitation/aggression [-Patient was counselled on substance abuse and desired to cut back on use] -Patient was informed of the risks, benefits and side effects of the medication and patient verbally consented to taking the medications. Patient signed med consent form and was placed in chart. -Internal Medicine consult to perform medical evaluation and physical. -NRT - not needed as patient does not smoke. -SW on board for discharge planning. Encourage patient to participate in groups to work on coping skills.
[2022-08-19] MEDS: DULoxetine HCL 30 MG CAPSULE.DR PO SCH (11:41)
[2022-08-19 13:02] LABS: Glucose,Whole Blood 162 mg/dL (70-110)
[2022-08-19 13:15] VITALS: BMI 18.7
[2022-08-19 18:03] LABS: Glucose,Whole Blood 214 mg/dL (70-110)
[2022-08-19 20:00] LABS: Glucose,Whole Blood 245 mg/dL (70-110)
[2022-08-19 20:46] LABS: Chol/HDL Ratio 3.16 Ratio; LDL Cholesterol,Calculated 76.8 mg/dL (0.0-131.0)
[2022-08-19] MEDS: DOXEPIN 10 MG CAP PO SCH (21:15)
[2022-08-19] MEDS: LORazepam 1 MG TAB PO PRN (21:16)
[2022-08-20 01:45] LABS: Glucose,Whole Blood 242 mg/dL (70-110)
[2022-08-20] MEDS: INSULIN ASPART (NovoLOG) 100 UNIT/ML VIAL SQ SCH ×8 (01:46→21:04)
--- NOTE | 2022-08-20 06:57 | CONS ---
CONSULTATION CHIEF COMPLAINT: Depression. HISTORY OF PRESENT ILLNESS: This is another admission for this 27-year-old white male. He has a long-standing history of depression, noncompliance with management of his type 1 diabetes mellitus along with gastroparesis and peripheral neuropathy. He apparently became very depressed and is threatening suicide. He was with a friend and they were cleaning guns when he held a gun to his head. The friend then took all the weapons away and hid them and took the patient to the hospital. REVIEW OF SYSTEMS: He has no other complaints. As usual, his blood sugars are out of control. Past medical history, family history, and personal and social histories are all to be found in previous admitting and discharge summaries. PHYSICAL EXAMINATION: VITAL SIGNS: Blood pressure 136/84 with a pulse of 81, respirations of 16, and afebrile. GENERAL: Appeared to be tall, slender, and disheveled. HEAD, EARS, EYES, NOSE, MOUTH AND THROAT: Normal. CHEST: Clear. CARDIAC: Normal. ABDOMEN: Flat, soft, nontender. EXTREMITIES: Normal. NEUROLOGICAL: He is intact. IMPRESSION: 1. Major depression. 2. Suicidal personality. 3. Uncontrolled insulin-dependent diabetes mellitus. PLAN: There is no recommendation for his management. I will help manage his diabetes while he is in the unit. MMODL / IJN: [id number] /
[2022-08-20 07:41] LABS: Glucose,Whole Blood 283 mg/dL (70-110)
[2022-08-20] MEDS: GABAPENTIN 300 MG CAP PO SCH ×3 (08:06→21:03)
[2022-08-20] MEDS: DULoxetine HCL 30 MG CAPSULE.DR PO SCH (08:06)
[2022-08-20] MEDS: INSULIN DETEMIR (LEVEMIR) 100 UNIT/ML SYR SQ SCH (08:08)
--- NOTE | 2022-08-20 11:45 | P.PN ---
Progress Note - Text Progress Note Date: 08/20/22 Interval History: Patient was seen today at the bedside and was sleeping. he awoke briefly today however was fairly nonchalant and uncooperative todya. he seemed disinterested in speaking with ad writer. he claims that he is still depressed today, mainly isolating. He continues to endorse hopelessness and worthlessness. he claims that he is still anxious and having suicidal thoughts at times. he states that he has no specific plan today. he claims that he slept "alright". He states that his appetite is fair. he was concrete today, continues to be impulsive and have poor insioght and judgment. he is denying any Hi or any Ah or VH. General Appearance: Patient appears to be tall, thin, alert, stated age. Patient appears to have a slightly disheveled hygiene and grooming. Dressed in street clothing. Behavior: Patient is laying in bed without any agitated behavior. Eye contact is poor. Minimal Speech: Patient's speech is fluent and nonpressured. Monotone. Mood/Affect: Patient reports their mood is "depressed still", affect is constricted Suicidality/Homicidality: Patient admits to suicidal thoughts, no intent or plan. Denying any homicidal ideations Perceptions: Patient denies any visual hallucinations and denies any auditory hallucinations Though content/process: There is no evidence of any delusional thought content and thought process is linear and goal-directed. [place]. Rationalizing. Endorsing hopelessness. Memory and concentration: AOX3, grossly intact for the purposes of this session Judgment and insight: poor/impulsive IMPRESSIONS: Major depressive disorder without psychotic features Borderline personality disorder anxiety disorder NOS Cannabis use disorder homelessness PLAN: -Patient is admitted under [voluntary] status to MHU for stabilization of psychiatric symptoms and safety. Patient has signed [adult voluntary form and] [medication consent] and is placed in patient's chart. -Medications : increase cymbalta 60 mg daily for mood/anxiety/pain, doxepin 10 mg qhs for insomnia. -Ativan [and Haldol] PRN for agitation/aggression -NRT - not needed as patient does not smoke -SW on board for discharge planning. Encourage patient to participate in groups to work on coping skills.
[2022-08-20 13:00] LABS: Glucose,Whole Blood 179 mg/dL (70-110)
[2022-08-20 17:54] LABS: Glucose,Whole Blood 167 mg/dL (70-110)
[2022-08-20 20:14] LABS: Glucose,Whole Blood 112 mg/dL (70-110)
[2022-08-20] MEDS: DOXEPIN 10 MG CAP PO SCH (21:03)
[2022-08-21 01:57] LABS: Glucose,Whole Blood 381 mg/dL (70-110)
[2022-08-21] MEDS: INSULIN ASPART (NovoLOG) 100 UNIT/ML VIAL SQ SCH ×8 (02:00→20:47)
[2022-08-21 08:13] LABS: Glucose,Whole Blood 380 mg/dL (70-110)
[2022-08-21] MEDS: INSULIN DETEMIR (LEVEMIR) 100 UNIT/ML SYR SQ SCH (08:52)
[2022-08-21] MEDS: GABAPENTIN 300 MG CAP PO SCH ×2 (08:52→17:30)
[2022-08-21] MEDS ORDERED: DULoxetine HCL 60 MG CAPSULE.DR PO SCH (09:00)
[2022-08-21 10:39] LABS: Glucose,Whole Blood 306 mg/dL (70-110)
[2022-08-21] MEDS ORDERED: ONDANSETRON 4 MG TAB PO PRN (11:56)
[2022-08-21] MEDS ORDERED: ONDANSETRON ODT 4 MG TAB PO PRN (11:59)
--- NOTE | 2022-08-21 13:14 | P.PN ---
Progress Note - Text Progress Note Date: 08/21/22 Interval History: Patient was seen today at the bedside and was sleeping. Patient claims that he is having abdominal pain today. He claims that he is still feeling hopeless and worthless today. He states that after he ate lunch today his stomach was feeling worse and feels bloated. He claims that he has had this issue in the past with gastroparesis. He appeared to be somewhat lethargic today. He continues to endorse hopelessness and worthlessness. States that he wants to get rid of the pain. he claims that he is still anxious and having suicidal thoughts at times however and none at the moment. he claims that he slept "fine". He states that his appetite is fair. he was concrete today, continues to have poor insioght and judgment. he is denying any Hi or any Ah or VH. General Appearance: Patient appears to be tall, thin, alert, stated age. Patient appears to have a slightly disheveled hygiene and grooming. Dressed in street clothing. Behavior: Patient is laying in bed without any agitated behavior. Eye contact is poor. Minimal. Appears to be having abdominal pain. Speech: Patient's speech is fluent and nonpressured. Monotone. Mood/Affect: Patient reports their mood is "depressed", affect is constricted Suicidality/Homicidality: Patient admits to suicidal thoughts, no intent or plan. Denying any homicidal ideations Perceptions: Patient denies any visual hallucinations and denies any auditory hallucinations Though content/process: There is no evidence of any delusional thought content and thought process is linear and goal-directed. [place]. Endorsing hopelessness. Memory and concentration: AOX3, grossly intact for the purposes of this session Judgment and insight: poor/impulsive IMPRESSIONS: Major depressive disorder without psychotic features Borderline personality disorder anxiety disorder NOS Cannabis use disorder homelessness PLAN: -Patient is admitted under [voluntary] status to MHU for stabilization of psychiatric symptoms and safety. Patient has signed [adult voluntary form and] [medication consent] and is placed in patient's chart. -Medications : cymbalta 60 mg daily for mood/anxiety/pain, discontinue doxepin due to possible side effects and oversedation. Replace with trazodone 100 mg daily at bedtime for insomnia. -Ativan [and Haldol] PRN for agitation/aggression -NRT - not needed as patient does not smoke -SW on board for discharge planning. Encourage patient to participate in groups to work on coping skills. drawing basic met panel as recommended by medicine to see if patient is in DKA.
[2022-08-21 13:19] LABS: African American GFR (CKD) >90 (>60 ml/min/1.73 sqM); Anion Gap 9 mmol/L; Blood Urea Nitrogen 23 mg/dL (9-20); Calcium 9.6 mg/dL (8.4-10.2); Carbon Dioxide 33 mmol/L (22-30); Chloride 98 mmol/L (98-107); Glucose 132 mg/dL (74-99); Non-African American GFR(CKD) >90 (>60 ml/min/1.73 sqM); Potassium 4.3 mmol/L (3.5-5.1); Sodium 140 mmol/L (137-145)
[2022-08-21 14:02] LABS: Glucose,Whole Blood 97 mg/dL (70-110)
[2022-08-21] MEDS ORDERED: ONDANSETRON 4 MG/2 ML VIAL IM PRN (14:09)
[2022-08-21 15:03] LABS: Glucose,Whole Blood 103 mg/dL (70-110)
[2022-08-21 15:06] VITALS: RESP 20; TEMP 97.5
[2022-08-21] MEDS ORDERED: METOCLOPRAMIDE 5 MG/ML 2 ML VIAL IM PRN (15:17)
[2022-08-21] MEDS ORDERED: PANTOPRAZOLE 40 MG TABLET PO STA (15:18)
--- NOTE | 2022-08-21 16:43 | P.PN ---
Subjective Progress Note Date: 08/21/22 This is a 27 year old male who is admitted on mental health unit for depression and suicidal ideations. Patient is a known type 1 diabetic and has been noncompliant with medication and also has issues with homelessness and resources to obtain insulin at times. He has history also of gastroparesis. Patient has had elevated blood glucose since admission and was noted to be 380 and 306 today. He is currently receiving novolog s/s before meals, bedtime, and 2am. He is also receiving 10 units with meals and 25 units of levemir daily. Patients blood glucose has improved and back down to the 100s. He is complaining of abdominal pain and nausea today. He has been wretching. He is started on reglan as needed. He does not appear to be in DKA with his serum labs, his anion gap is 9. Review of Systems Constitutional: Denied any fatigue denied any fever. Cardio vascular: denied any chest pain, palpitations Gastrointestinal: Reports nausea, no diarrhea. Bloating after meal. Pulmonary: Denied any shortness of breath cough Neurologic denied any new focal deficits All inpatient medications were reviewed and appropriate changes in these medications as dictated in the interval history and assessment and plan. PHYSICAL EXAMINATION: GENERAL: The patient is alert and oriented x3, not in any acute distress. Well developed, well nourished. HEENT: Pupils are round and equally reacting to light. EOMI. No scleral icterus. No conjunctival pallor. Normocephalic, atraumatic. No pharyngeal erythema. No t hyromegaly. CARDIOVASCULAR: S1 and S2 present. No murmurs, rubs, or gallops. PULMONARY: Chest is clear to auscultation, no wheezing or crackles. ABDOMEN: Soft, nontender, nondistended, normoactive bowel sounds. No palpable organomegaly. MUSCULOSKELETAL: No joint swelling or deformity. EXTREMITIES: No cyanosis, clubbing, or pedal edema. NEUROLOGICAL: Gross neurological examination did not reveal any focal deficits. SKIN: No rashes. Assessment and Plan Assessment Nausea and abdominal pain possibly gastroparesis Type 1 diabetes mellitus, uncontrolled hgb a1c 10.6 History of noncompliance History of gastroparesis Diabetic neuropathy Depression and suicidal ideation Borderline personality disorder Anxiety Cannibis use Homelessness GI prophylaxis Full Code Plan Continue same insulin regimen patient has highs and lows with his blood glucose control Patient has been started on reglan IM prn for the nausea Recommend diet as tolerated All other medications per psychiatry The impression and plan of care has been dictated by Grace Blankenship, Nurse Practitioner as directed. Dr. Yadira MD I have performed a history and physical examination and medical decision making of this patient, discussed the same with the dictator, and agree with the dictators assessment and plan as written, documented as a scribe. Based on total visit time, I have performed more than 50% of this visit. Objective - Vital Signs Vital signs: Vital Signs Temp 97.5 F L 08/21/22 15:05 Pulse 116 H 08/21/22 15:05 Resp 20 08/21/22 15:05 BP 141/80 08/21/22 15:05 Pulse Ox 99 08/20/22 07:14 FiO2 - Labs CBC & Chem 7: 08/18/22 08:05 08/21/22 12:16 Labs: Abnormal Lab Results - Last 24 Hours (Table) 08/20/22 08/20/22 08/21/22 Range/Units 17:53 20:12 01:55 Carbon Dioxide (22-30) mmol/L BUN (9-20) mg/dL Creatinine (0.66-1.25) mg/dL Glucose (74-99) mg/dL POC Glucose (mg/dL) 167 H 112 H 381 H (70-110) mg/dL 08/21/22 08/21/22 08/21/22 Range/Units 08:11 10:37 12:16 Carbon Dioxide 33 H (22-30) mmol/L BUN 23 H (9-20) mg/dL Creatinine 0.63 L (0.66-1.25) mg/dL Glucose 132 H (74-99) mg/dL POC Glucose (mg/dL) 380 H 306 H (70-110) mg/dL Assessment and Plan Time with Patient: Less than 30
[2022-08-21 17:40] LABS: Glucose,Whole Blood 123 mg/dL (70-110)
[2022-08-21] MEDS ORDERED: PROCHLORPERAZINE INJ 10 MG/2 ML VIAL IM STA (17:59)
[2022-08-21 19:57] VITALS: BP 125/92; PULSE 120
[2022-08-21 20:31] LABS: Glucose,Whole Blood 202 mg/dL (70-110)
[2022-08-21] MEDS ORDERED: traZODone HCL 100 MG TAB PO SCH (21:00)
--- NOTE | 2022-08-22 13:04 | P.DS ---
Providers Date of admission: 08/18/22 16:19 Expected date of discharge: 08/22/22 Attending physician: Fer Merlos MD Consults: 08/18/22 17:25 Consult Physician Stat Consulting Provider: Brown Valenzuela Consult Reason/Comments: medical management Do you want consulting provider notified?: Yes, Notify in am Primary care physician: Brown Valenzuela - Discharge Diagnosis(es) (1) Major depressive disorder without psychotic features Status: Acute Priority: High (2) Borderline personality disorder Status: Acute Priority: High (3) Anxiety disorder Status: Acute Priority: Medium (4) Cannabis use disorder Status: Acute Priority: Medium (5) Homelessness Status: Acute Priority: Medium (6) Intractable nausea and vomiting Status: Acute Priority: High Hospital Course: Admission HPI: Admission note was completed by [process description writer] "[Patient is a single, unemployed, 27-year-old male with significant history of diabetes mellitus type 1, depression, and borderline personality disorder, 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 Patient presented to the hospital yesterday and apparently was dropped off by a friend. Patient has a hx of depression, borderline PD and uncontrolled DM. Patient is currently homeless, has had multiple psychioatric admissions as well as medical admissions and ER visits for diabetic complication. Patient was admitted voluntarily to the mental health unit. He states that he continues to feel hopeless and worthless. He states that he is having suicidal thoughts and depression. Claimed that he is having a lot of complication with his diabetes including pain and also gastroparesis. He states that he does take his insulin long-acting shot every morning and tries to take it with meals. His glucose was over 500 on admission. He was not agitated. He claims that he was cleaning his friend's guns with him in a shed and states that he took one of the guns and put it to his head and was going to pull the trigger. He claims that "I know people were tackling me". She He continues to have chronically superficial insight and judgment. He states that his sleep has been poor, depressed mood and anxiety anxious. He states that he is still having suicidal thoughts, no intent or plan today. He is denying any homicidal ideations and denying any auditory or visual hallucinations. ]" Hospital course: Upon admission to the unit patient was [directable and agreeable to commence treatment and signed adult voluntary form] . Patient mainly isolated in his room, he was taking medications however after the second day began feeling unwell, abdominal pain, nausea and intractable vomiting. Patient has a history of gastroparesis and uncontrolled type 1 diabetes. The patient was seen by medical team and transferred to the medical floors on 08/21. Mental status exam: As per progress note written on 08/21. Impression: Major depressive disorder without psychotic features Borderline personality disorder Anxiety disorder unspecified Cannabis use disorder No looseness Intractable nausea and vomiting Plan: -Continue with discharge today as a transfer to the medical floors due to patient's intractable nausea and vomiting. Patient has a history of gastroparesis and uncontrolled diabetes. Patient will continue to be followed by psychiatry and treated medically until then. Further recommendations to come. Patient Condition at Discharge: Stable Plan - Discharge Summary Discharge Rx Participant: Yes New Discharge Prescriptions: No Action INSULIN ASPART (NovoLOG) [NovoLOG (formulary)] 10 unit SQ AC-TID Gabapentin 600 mg PO TID Insulin Detemir (Levemir) [Levemir] 25 unit SQ DAILY Discharge Medication List INSULIN ASPART (NovoLOG) [NovoLOG (formulary)] 10 unit SQ AC-TID 06/29/21 [History] Gabapentin 600 mg PO TID 12/19/21 [History] Insulin Detemir (Levemir) [Levemir] 25 unit SQ DAILY 04/11/22 [History] Follow up Appointment(s)/Referral(s): Brown Valenzuela MD [Primary Care Provider] - 1-2 days Activity/Diet/Wound Care/Special Instructions: Avoid the use of street drugs and alcohol. Take all medications as prescribed. When you are in need of refills on your medications, please contact your medical provider and/or outpatient psychiatrist to have this done. Please go to scheduled outpatient appointments for aftercare treatment. If symptoms return or become worse, call the crisis line at and/or go to the nearest emergency room for evaluation. Discharge Disposition: ADMITTED IP TO THIS HOSP
== END 2022-08-21 21:10 | disposition other institution (70) | DRG 754 ==
LOC: EC 06:56 → 3MHU 16:19
PROVIDERS: ADMIT Psychiatry & Neurology Psychiatry; ATTEND Psychiatry & Neurology Psychiatry
DX: F32.9 Major depressive disorder, single episode, unspecified (principal); E86.0 Dehydration; E10.10 Type 1 diabetes mellitus with ketoacidosis without coma; E10.42 Type 1 diabetes mellitus with diabetic polyneuropathy; E10.43 Type 1 diabetes mellitus with diabetic autonomic (poly)neuropathy; F12.90 Cannabis use, unspecified, uncomplicated; F17.200 Nicotine dependence, unspecified, uncomplicated; F41.9 Anxiety disorder, unspecified; F60.3 Borderline personality disorder; F60.89 Other specific personality disorders; K31.84 Gastroparesis; R45.851 Suicidal ideations; Z59.00 Homelessness unspecified; Z60.8 Other problems related to social environment; Z79.4 Long term (current) use of insulin; Z91.14 Patient's other noncompliance with medication regimen; Z91.199 Patient's noncompliance with other medical treatment and regimen due to unspecified reason; Z91.51 Personal history of suicidal behavior; Z20.822 Contact with and (suspected) exposure to COVID-19
CPT/HCPCS: 36415; 80048; 80053; 80061; 80306; 81003; 82075; 83036; 84443; 85025; 87635; 96360; 96361; 99291

== ENCOUNTER 2022-08-21 18:57 | Inpatient (IN) | payer OTHER ==
[2022-08-21] MEDS ORDERED: MORPHINE SULFATE 4 MG/ML SYRINGE IVP PRN (21:22)
[2022-08-21] MEDS ORDERED: SODIUM CHLORIDE 0.9% 1,000 ML IV ONE (21:22)
[2022-08-21] MEDS ORDERED: DEXTROSE 50% SYRINGE 50 ML IVP PRN ×2 (21:26)
[2022-08-21] MEDS ORDERED: NALOXONE 0.4 MG/ML 1 ML VIAL IV PRN (21:30)
[2022-08-21] MEDS: PANTOPRAZOLE 40 MG/10 ML VIAL IVP SCH (21:54)
[2022-08-21] MEDS: GABAPENTIN 300 MG CAP PO SCH (21:54)
--- NOTE | 2022-08-21 22:30 | XR ---
EXAMINATION TYPE: XR chest 1V portable DATE OF EXAM: 08/21/2022 COMPARISON: 05/31/2022 HISTORY: Short of breath TECHNIQUE: 2 views FINDINGS: Heart and mediastinum are normal. Lungs are clear. The diaphragm is normal. Bony thorax is intact. IMPRESSION: Normal chest no change.
[2022-08-21] MEDS: ONDANSETRON 4 MG/2 ML VIAL IVP PRN (22:49)
--- NOTE | 2022-08-21 22:57 | CT ---
EXAMINATION TYPE: CT abdomen pelvis wo con DATE OF EXAM: 08/21/2022 COMPARISON: 07/15/2019 HISTORY: nausea and vomiting CT DLP: 421.7 mGycm Automated exposure control for dose reduction was used. Images obtained from the diaphragm to the floor the pelvis without contrast. Lung bases are clear. No pleural effusion. Heart size is normal. No pericardial effusion. Liver splee n stomach pancreas gallbladder appear normal. The bile ducts are not dilated. There is no adrenal mass. Kidneys of normal size and contour. No hydronephrosis. Ureters are not dila ole. No retroperitoneal adenopathy. Bladder distends smoothly. No inguinal hernia. No free fluid in t he pelvis. No pelvic mass. There is no mesenteric edema. No ascites or free air. No sign of a bowel obstruction. Appendix has no rmal size adjacent to the inferior right lobe of the liver.. IMPRESSION: Normal appendix. No significant abnormality in the abdomen and pelvis. No renal stone or obstruction. No adverse change compared to old exam.
[2022-08-21] MEDS: SODIUM CHLORIDE 0.9% 1,000 ML IV SCH (23:08)
[2022-08-21 23:18] LABS: Basophils % (A) 0 %; Eosinophils % (A) 0 %; HCT 42.7 % (39.0-53.0); HGB 14.3 gm/dL (13.0-17.5); Lymphocytes # (A) 0.8 k/uL (1.0-4.8); Lymphocytes % (A) 5 %; MCHC 33.5 g/dL (31.0-37.0); MCV 92.4 fL (80.0-100.0); Mean Platelet Volume 7.2; Monocytes # (A) 0.4 k/uL (0-1.0); Monocytes % (A) 2 %; Neutrophils % (A) 92 %; Platelet Count 396 k/uL (150-450); RBC 4.62 m/uL (4.30-5.90); RDW 13.4 % (11.5-15.5); WBC 16.3 k/uL (3.8-10.6)
[2022-08-21 23:58] LABS: ALT 30 U/L (4-49); AST 29 U/L (17-59); African American GFR (CKD) >90 (>60 ml/min/1.73 sqM); Albumin 4.8 g/dL (3.5-5.0); Alkaline Phosphatase 110 U/L (38-126); Anion Gap 15 mmol/L; Blood Urea Nitrogen 23 mg/dL (9-20); Calcium 9.4 mg/dL (8.4-10.2); Carbon Dioxide 24 mmol/L (22-30); Chloride 100 mmol/L (98-107); Glucose 236 mg/dL (74-99); Magnesium 1.6 mg/dL (1.6-2.3); Non-African American GFR(CKD) >90 (>60 ml/min/1.73 sqM); Potassium 4.2 mmol/L (3.5-5.1); Sodium 139 mmol/L (137-145); Total Bilirubin 0.9 mg/dL (0.2-1.3); Total Protein 7.7 g/dL (6.3-8.2)
[2022-08-22 01:18] LABS: Appearance,Urine Clear (Clear); Bilirubin,Urine Negative (Negative); Blood,Urine Negative (Negative); Color,Urine Yellow; Glucose,Urine (UA) 4+ (Negative); Ketones,Urine 1+ (Negative); Leukocyte Esterase,Urine Negative (Negative); Mucus,Urine Rare /hpf; Nitrite,Urine Negative (Negative); PH, Urine 8.5 (5.0-8.0); Protein,Urine 1+ (Negative); RBC,Urine 2 /hpf (0-5); Specific Gravity,Urine 1.024 (1.001-1.035); Squamous Epithelial Cell,Urine <1 /hpf (0-4); Urobilinogen,Urine <2.0 mg/dL (<2.0); WBC,Urine 1 /hpf (0-5)
[2022-08-22 01:21] LABS: Glucose,Whole Blood 264 mg/dL (70-110)
[2022-08-22 01:21] LABS: Sperm,Urine Few /hpf
[2022-08-22] MEDS: METOCLOPRAMIDE 5 MG/ML 2 ML VIAL IVP PRN (01:29)
[2022-08-22 05:53] LABS: Glucose,Whole Blood 276 mg/dL (70-110)
[2022-08-22] MEDS: INSULIN DETEMIR (LEVEMIR) 100 UNIT/ML SYR SQ SCH (06:13)
[2022-08-22] MEDS: INSULIN ASPART (NovoLOG) 100 UNIT/ML VIAL SQ SCH ×8 (06:14→20:14)
[2022-08-22 09:20] LABS: Glucose,Whole Blood 120 mg/dL (70-110)
[2022-08-22] MEDS: GABAPENTIN 300 MG CAP PO SCH ×3 (09:20→20:13)
[2022-08-22] MEDS: PANTOPRAZOLE 40 MG/10 ML VIAL IVP SCH ×2 (09:20→20:16)
[2022-08-22] MEDS ORDERED: LORazepam 0.5 MG TAB PO PRN (11:30)
--- NOTE | 2022-08-22 11:50 | P.HPIM ---
History of Present Illness H&P Date: 08/22/22 Chief Complaint: Nausea, vomiting and abdominal pain Patient is a 27-year-old male with a known history of diabetes type 1, diabetic peripheral neuropathy, gastropathy and prior history of DKA's, anxiety/depression currently everyday smoker/vaping and occasional marijuana use initially presented to ER voluntarily due to complaints of depression and suicidal ideation. Patient has been noncompliant with medications and is also homeless. Patient was initially admitted to inpatient psychiatric unit and was started back on his medications. Patient started having intractable nausea and vomiting, bloating and abdominal pain last night and patient stated that he started having gastroparesis flareup. Patient was transferred to medical floor due to above complaints and also elevated blood sugar. CT of the abdomen pelvis showed normal appendix. No significant abnormality in the abdominal pelvis. No renal stone or obstruction. No adverse change compared to old exam. Chest x-ray showed normal chest. No change. Lab data showed WBC 16.3 hemoglobin 14.3 and platelets 396 BUN 23 and creatinine 0.57 calcium 9.4 potassium 4.2 and low radial-cephalic elevated. Urinalysis showed pH of 8.5. [place] 1.024 and 4+ ketones and acetone positive. Review of Systems Review of Systems Constitutional: Denied any fatigue denied any fever. Cardio vascular: denied any chest pain, palpitations Gastrointestinal: Reports nausea, no diarrhea. Bloating after meal. Pulmonary: Denied any shortness of breath cough Neurologic denied any new focal deficits All inpatient medications were reviewed and appropriate changes in these medications as dictated in the interval history and assessment and plan. Past Medical History Past Medical History: Asthma, Diabetes Mellitus, Neurologic Disorder, Skin Disorder Additional Past Medical History / Comment(s): IDDM type I, neuropathy bilateral feet, DKA, eczema. History of Any Multi-Drug Resistant Organisms: None Reported Past Surgical History: Adenoidectomy Additional Past Surgical History / Comment(s): 2002 Past Anesthesia/Blood Transfusion Reactions: No Reported Reaction Past Psychological History: Anxiety, Depression Additional Psychological History / Comment(s): Pt has had multiple psychiatric admissions for depression/suicide attempts. Smoking Status: Current every day smoker, Vaper Past Alcohol Use History: None Reported Additional Past Alcohol Use History / Comment(s): Pt started smoking cigarettes as a teen and quit "long ago." Pt started occasional vaping in 2009. Past Drug Use History: Marijuana Additional Drug Use History / Comment(s): Occasional - Past Family History Mother Family Medical History: CVA/TIA Additional Family Medical History / Comment(s): TIA Father Family Medical History: Hyperlipidemia, Hypertension Additional Family Medical History / Comment(s): . Medications and Allergies Home Medications Medication Instructions Recorded Confirmed Type INSULIN ASPART (NovoLOG) [NovoLOG 10 unit SQ AC-TID 06/29/21 08/21/22 History (formulary)] Gabapentin 600 mg PO TID 12/19/21 08/21/22 History Insulin Detemir (Levemir) [Levemir] 25 unit SQ DAILY 04/11/22 08/21/22 History Allergies Allergy/AdvReac Type Severity Reaction Status Date / Time No Known Allergies Allergy Verified 08/18/22 14:16 Physical Exam Vitals: Vital Signs Temp Pulse Pulse Resp BP Pulse Ox 08/22/22 09:15 98.2 F 110 H 16 109/71 97 08/22/22 03:40 98.8 F 129 H 17 142/93 98 08/21/22 23:05 108 H 17 103/66 96 08/21/22 21:49 97.6 F 120 H 18 130/90 100 Intake and Output 08/21/22 08/22/22 08/22/22 22:59 06:59 14:59 Other: Voiding Method Toilet Urinal Weight 68 kg PHYSICAL EXAMINATION: GENERAL: The patient is alert and oriented x3, not in any acute distress. Well developed, well nourished. HEENT: Pupils are round and equally reacting to light. EOMI. No scleral icterus. No conjunctival pallor. Normocephalic, atraumatic. No pharyngeal erythema. No thyromegaly. CARDIOVASCULAR: S1 and S2 present. No murmurs, rubs, or gallops. PULMONARY: Chest is clear to auscultation, no wheezing or crackles. ABDOMEN: Soft, nontender, nondistended, normoactive bowel sounds. No palpable organomegaly. MUSCULOSKELETAL: No joint swelling or deformity. EXTREMITIES: No cyanosis, clubbing, or pedal edema. NEUROLOGICAL: Gross neurological examination did not reveal any focal deficits. SKIN: No rashes. Results CBC & Chem 7: 08/21/22 22:08 08/21/22 22:08 Labs: Abnormal Lab Results - Last 24 Hours (Table) 08/21/22 08/21/22 08/22/22 Range/Units 22:08 22:08 00:55 WBC 16.3 H (3.8-10.6) k/uL Neutrophils # 15.0 H (1.3-7.7) k/uL Lymphocytes # 0.8 L (1.0-4.8) k/uL BUN 23 H (9-20) mg/dL Creatinine 0.57 L (0.66-1.25) mg/dL Glucose 236 H (74-99) mg/dL POC Glucose (mg/dL) (70-110) mg/dL Urine pH 8.5 H (5.0-8.0) Urine Protein 1+ H (Negative) Urine Glucose (UA) 4+ H (Negative) Urine Ketones 1+ H (Negative) Urine Mucus Rare H (None) /hpf 08/22/22 08/22/22 08/22/22 Range/Units 01:19 05:51 09:19 WBC (3.8-10.6) k/uL Neutrophils # (1.3-7.7) k/uL Lymphocytes # (1.0-4.8) k/uL BUN (9-20) mg/dL Creatinine (0.66-1.25) mg/dL Glucose (74-99) mg/dL POC Glucose (mg/dL) 264 H 276 H 120 H (70-110) mg/dL Urine pH (5.0-8.0) Urine Protein (Negative) Urine Glucose (UA) (Negative) Urine Ketones (Negative) Urine Mucus (None) /hpf Thrombosis Risk Factor Assmnt - DVT/VTE Prophylaxis DVT/VTE Prophylaxis: Pharmacologic Prophylaxis ordered - Choose All That Apply Any of the Below Risk Factors Present?: No Other Risk Factors: No Other congenital or acquired thrombophilia - If yes, enter type in comment: No Thrombosis Risk Factor Assessment Level: Very Low Risk Assessment and Plan Assessment: Hyperglycemia with uncontrolled diabetes type 1 with A1c 10.6 Intractable nausea vomiting abdominal pain likely secondary to diabetic gastroparesis Noncompliance with insulin dose and follow-up Diabetic peripheral neuropathy Major depression with suicidal ideation Borderline personality disorder Anxiety Cannabis use disorder Homelessness GI prophylaxis and DVT prophylaxis Plan: Patient will be continued on IV hydration with normal saline at 75 cc/h. Symptomatic management for nausea and vomiting. Continue with pain management. Patient was started back on insulin regimen with Levemir and preprandial insulin and sliding scale. Titrate dose as needed. Diabetic diet as tolerated. Continue with psychiatric medications and psychiatric consult for continued T of care from inpatient unit. Follow-up CBC and BMP. Replace electrolytes. Time with Patient: Greater than 30
[2022-08-22 11:57] LABS: Glucose,Whole Blood 92 mg/dL (70-110)
[2022-08-22] MEDS: SODIUM CHLORIDE 0.9% 1,000 ML IV SCH (12:03)
[2022-08-22] MEDS: DULoxetine HCL 60 MG CAPSULE.DR PO SCH (12:03)
[2022-08-22 13:02] VITALS: BMI 18.7
--- NOTE | 2022-08-22 15:13 | P.CN ---
Psychiatric Consult - . 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 HPI: patient was initially seen by staff writer after being admitted from the ER to the psych unit and was voluntary, according to writers HPI "Patient presented to the hospital yesterday and apparently was dropped off by a friend. Patient has a hx of depression, borderline PD and uncontrolled DM. Patient is currently homeless, has had multiple psychioatric admissions as well as medical admissions and ER visits for diabetic complication. Patient was admitted voluntarily to the mental health unit. He states that he continues to feel hopeless and worthless. He states that he is having suicidal thoughts and depression. Claimed that he is having a lot of complication with his diabetes including pain and also gastroparesis. He states that he does take his insulin long-acting shot every morning and tries to take it with meals. His glucose was over 500 on admission. He was not agitated. He claims that he was cleaning his friend's guns with him in a shed and states that he took one of the guns and put it to his head and was going to pull the trigger. He claims that "I know people were tackling me". She He continues to have chronically superficial insight and judgment. He states that his sleep has been poor, depressed mood and anxiety anxious. He states that he is still having suicidal thoughts, no intent or plan today. He is denying any homicidal ideations and denying any auditory or visual hallucinations." Patient was started on doxepin and cymbalta while on the MHU and began feeling worst after a large meal. he has a history of gastroparesis and uncontrolled type 1 diabetes. Patient was having abdominal pain and uncontrolled/intractable nausea and vomiting. Patient was seen by medicine and transferred to the medical floors. Assembly Line Supervisor was consulted today to see patient for continued care and follow-up. patient was seen layingi in bed today talking to his sitter. he states that he feels better today and claims that the N and V were most likely ue to his gastroperisis "acting up". he sates that his mood is improivng and he is tolerating the cymbalta better today. he claims his anxiety is improivng. he states that he did not sleep well last night. we spoke about other med options for sleep and he is ok with trying remeron and melatonin. he is denying any HI but still says the he has fleeting SI, no intent or plan. he is denying any Ah or Vh today. PAST PSYCHIATRIC HISTORY: The patient has had multiple psychiatric hospitalizations. He is nonadherent with any prescribed medications and does not follow up with any psychiatrist or therapist on a regular basis. Patient has been tried on several different antidepressants in the past however has been nonadherent. Patient has had several suicide attempts in the past. Patient was last admitted to the mental health unit in December 2021 order has had several inpatient medical admissions and also ER visits with psychiatric consultations. Has a history of cluster B personality disorder and depression. PMH: Past Medical History: Asthma, Diabetes Mellitus, Neurologic Disorder, Skin Disorder Additional Past Medical History / Comment(s): IDDM type I, neuropathy bilateral feet, DKA, eczema. History of Any Multi-Drug Resistant Organisms: None Reported Past Surgical History: Adenoidectomy Additional Past Surgical History / Comment(s): 2002 Past Anesthesia/Blood Transfusion Reactions: No Reported Reaction Past Psychological History: Anxiety, Depression Smoking Status: Never smoker, Vaper Past Alcohol Use History: Occasional Past Drug Use History: Marijuana ALLERGIES: NO KNOWN DRUG ALLERGIES CHEMICAL DEPENDENCY HISTORY: The patient reports binge alcohol use episodes in the past. He does admit to marijuana use, up to a quarter ounce per day. He has a history of Xanax abuse however denies any Xanax use over the past few weeks. FAMILY PSYCHIATRIC/SUBSTANCE USE HISTORY: Denies SOCIAL HISTORY: Patient was born and raised in [place]. He dropped out in the 11th grade. He is currently homeless. 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 MENTAL STATUS EXAM: General Appearance: Patient appears to be tall, thin, alert, stated age. Patient appears to have a improving hygiene and grooming. Dressed in street clothing. Behavior: Patient is laying in bed without any agitated behavior. Eye contact is intermittent. improving Speech: Patient's speech is fluent and nonpressured. Monotone. Mood/Affect: Patient reports their mood is "getting better", affect is improving Suicidality/Homicidality: Patient admits to suicidal thoughts, no intent or plan. Denying any homicidal ideations. Perceptions: Patient denies any visual hallucinations and denies any auditory hallucinations Though content/process: There is no evidence of any delusional thought content and thought process is linear and goal-directed. Memory and concentration: AOX3, grossly intact for the purposes of this session. Can spell "WORLD" backwards Judgment and insight: chronically poor/impulsive, improving IMPRESSIONS: Major depressive disorder without psychotic features Borderline personality disorder anxiety disorder NOS Cannabis use disorder homelessness PLAN: -At this time will continue seeing patient daily to see if patient can either be cleared from psych or needs transfer back and continues care in the MHU. -Would recommend the following medication changes/additions: []continue with cymbalta 60 mg daily for mood/anxiety, added r emeron 15 mg qhs for insomnia/mood. melatonin 5 mg qhs for sleep [-Continue 1:1 sitter for safety] [-Cannot leave AMA at this time. Patient will need a petition and certification if attempting to leave AMA.] [-polysilicon preparation worker to provide patient with outpatient mental health/psychiatry resources for appropriate follow up upon discharge] [-Communicated plan to patient's nurse] [-Will continue to follow along] and possibly sign off then. -Please contact with any questions. 08/22/22 15:08
[2022-08-22 16:34] LABS: Glucose,Whole Blood 119 mg/dL (70-110)
[2022-08-22 19:49] LABS: Glucose,Whole Blood 214 mg/dL (70-110)
[2022-08-22] MEDS: MELATONIN 5 MG TABLET PO SCH (20:13)
[2022-08-22] MEDS: MIRTAZAPINE 15 MG TAB PO SCH (20:13)
[2022-08-23] MEDS: SODIUM CHLORIDE 0.9% 1,000 ML IV SCH ×2 (05:51→16:00)
[2022-08-23 05:52] LABS: Glucose,Whole Blood 460 mg/dL (70-110)
[2022-08-23] MEDS: INSULIN DETEMIR (LEVEMIR) 100 UNIT/ML SYR SQ SCH (06:08)
[2022-08-23] MEDS: INSULIN ASPART (NovoLOG) 100 UNIT/ML VIAL SQ SCH ×7 (06:09→20:59)
[2022-08-23 07:36] LABS: HCT 44.2 % (39.0-53.0); HGB 14.3 gm/dL (13.0-17.5); MCH 31.1 pg (25.0-35.0); MCHC 32.4 g/dL (31.0-37.0); Mean Platelet Volume 7.3; Platelet Count 325 k/uL (150-450); RBC 4.61 m/uL (4.30-5.90); RDW 13.4 % (11.5-15.5); WBC 9.2 k/uL (3.8-10.6)
[2022-08-23 08:15] LABS: African American GFR (CKD) >90 (>60 ml/min/1.73 sqM); Anion Gap 9 mmol/L; Blood Urea Nitrogen 21 mg/dL (9-20); Carbon Dioxide 30 mmol/L (22-30); Chloride 97 mmol/L (98-107); Glucose 490 mg/dL (74-99); Non-African American GFR(CKD) >90 (>60 ml/min/1.73 sqM); Potassium 5.1 mmol/L (3.5-5.1); Sodium 136 mmol/L (137-145)
[2022-08-23] MEDS: PANTOPRAZOLE 40 MG/10 ML VIAL IVP SCH ×2 (08:47→21:00)
[2022-08-23] MEDS: ONDANSETRON 4 MG/2 ML VIAL IVP PRN (08:47)
[2022-08-23 09:18] LABS: Glucose,Whole Blood 202 mg/dL (70-110)
[2022-08-23] MEDS: GABAPENTIN 300 MG CAP PO SCH ×3 (09:59→20:59)
[2022-08-23] MEDS: DULoxetine HCL 60 MG CAPSULE.DR PO SCH (09:59)
[2022-08-23 11:40] LABS: Glucose,Whole Blood 110 mg/dL (70-110)
--- NOTE | 2022-08-23 14:04 | P.PN ---
Progress Note - Text Progress Note Date: 08/23/22 Interval History: Patient was seen today for psychiatric follow-up. Patient was laying on his s marybel in a position and appeared to be in distress. He claims that he is feeling more nauseous again today. He claims that he believes the Cymbalta has been upsetting his stomach and was having nausea and vomiting today. He claims that he is feeling somewhat depressed today and worse than yesterday. He states that he slept fairly last night with the Remeron and melatonin what to continue. We spoke about other medications that may help including Wellbutrin and patient is agreeable to try that instead of Cymbalta. Continues to have poor insight. At this time patient denies any suicidal or homical ideations, intent or plan. Patient denies any auditory, visual hallucinations and denies any paranoia or delusions. She refused the Cymbalta this morning. Mental Status Exam: General Appearance: Patient appears to be tall, thin, alert, stated age. Patient appears to have a improving hygiene and grooming. Dressed in street clothing. Behavior: Patient is laying in bed without any agitated behavior. Eye contact is poor, improving Speech: Patient's speech is fluent and nonpressured. Monotone. Mood/Affect: Patient reports their mood is "not good", affect is improving Suicidality/Homicidality: Patient admits to suicidal thoughts, no intent or plan. Denying any homicidal ideations. Perceptions: Patient denies any visual hallucinations and denies any auditory hallucinations Though content/process: There is no evidence of any delusional thought content and thought process is linear and goal-directed. [place]. Memory and concentration: AOX3, grossly intact for the purposes of this session. Can spell "[place]" backwards Judgment and insight: chronically poor/impulsive IMPRESSIONS: Major depressive disorder without psychotic features Borderline personality disorder anxiety disorder NOS Cannabis use disorder homelessness PLAN: -At this time will continue seeing patient daily to see if patient can either be cleared from psych or needs transfer back and continues care in the MHU. -Would recommend the following medication changes/additions: []discontinue cymbalta as it is most likely affecting patients gastroperisis. replace with wellbutrin xl 150 mg daily for mood. cont remeron 15 mg qhs for insomnia/mood. melatonin 5 mg qhs for sleep [-Continue 1:1 sitter for safety] as [patient is impulsive and hx of suicide attempts. [-Cannot leave AMA at this time. Patient will need a petition and certification if attempting to leave AMA.] [-utility worker forge to provide patient with outpatient mental health/psychiatry resources for appropriate follow up upon discharge] [-Communicated plan to patient's nurse] [-Will continue to follow along] and posibly sign off over the weekend if patient is doing better and has a good discharge plan. -Please contact with any questions.
[2022-08-23 16:55] LABS: Glucose,Whole Blood 70 mg/dL (70-110)
--- NOTE | 2022-08-23 19:14 | P.PN ---
Subjective Progress Note Date: 08/23/22 Patient is a 27-year-old male with a known history of diabetes type 1, diabetic peripheral neuropathy, gastropathy and prior history of DKA's, anxiety/depression currently everyday smoker/vaping and occasional marijuana use initially presented to ER voluntarily due to complaints of depression and suicid al ideation. Patient has been noncompliant with medications and is also homeless. Patient was initially admitted to inpatient psychiatric unit and was started back on his medications. Patient started having intractable nausea and vomiting, bloating and abdominal pain last night and patient stated that he started having gastroparesis flareup. Patient was transferred to medical floor due to above complaints and also elevated blood sugar. CT of the abdomen pelvis showed normal appendix. No significant abnormality in the abdominal pelvis. No renal stone or obstruction. No adverse change alyssa red to old exam. Chest x-ray showed normal chest. No change. Lab data showed WBC 16.3 hemoglobin 14.3 and platelets 396 BUN 23 and creatinine 0.57 calcium 9.4 potassium 4.2 and low radial-cephalic el evated. Urinalysis showed pH of 8.5. [place] 1.024 and 4+ ketones and acetone positive. 08/23/2022 Patient is seen and evaluated in follow-up today reporting he is nauseated and vomiting with history of gastroparesis. Patient's blood sugars were extremely elevated today although currently is not eating and recommend continue monitoring blood sugars closely. Patient maintained on IV hydration and will continue with follow-up labs in a.m. Patient feels his nausea and vomiting is from the Cymbalta that was started with psychiatry following and will be transitioning over to Wellbutrin. Patient continues to be on petition for suicidal ideation and does have suicide sitter at bedside. Patient reports increased depression although no thoughts of suicide at this time. Patient is afebrile with no chest pain or shortness of breath. Review of systems: Constitutional: No reports of fatigue, fever, or chills Cardiovascular: No reports of chest pain or palpitations Respiratory: No reports of shortness of breath or cough GI: reports of nausea with vomiting, no diarrhea : No reports of dysuria or retention Neurovascular: No reports of weakness or numbness All medications have been reviewed Active Medications Bupropion HCl (Bupropion Xl 150 Mg Tab.Er.24h) 150 mg PO DAILY [facility] Dextrose/Water (Dextrose 50% Syringe 50 Ml) 25 ml IVP PER PROTOCOL PRN; Protoc ol PRN Reason: Hypoglycemia Dextrose/Water (Dextrose 50% Syringe 50 Ml) 50 ml IVP PER PROTOCOL PRN; Protocol PRN Reason: Hypoglycemia Gabapentin (Gabapentin 300 Mg Cap) 600 mg PO TID [facility] Last Admin: 08/23/22 16:00 Dose: Not Given Sodium Chloride (Saline 0.9%) 1,000 mls @ 75 mls/hr IV .[id number] [facility] Last Admin: 08/23/22 16:00 Dose: Not Given Insulin Aspart (Insulin Aspart (Novolog) 100 Unit/Ml Vial) 10 unit SQ AC-TID [facility] Last Admin: 08/23/22 17:38 Dose: Not Given Insulin Aspart (Insulin Aspart (Novolog) 100 Unit/Ml Vial) 0 unit SQ ACHS [facility]; Protocol Last Admin: 08/23/22 17:39 Dose: Not Given Insulin Detemir (Insulin Detemir (Levemir) 100 Unit/Ml Syr) 25 unit SQ DAILY@0700 [facility] Last Admin: 08/23/22 06:08 Dose: 25 unit Lorazepam (Lorazepam 0.5 Mg Tab) 0.5 mg PO TID PRN PRN Reason: Anxiety Melatonin (Melatonin 5 Mg Tablet) 5 mg PO [facility] Last Admin: 08/22/22 20:13 Dose: 5 mg Metoclopramide HCl (Metoclopramide 5 Mg/Ml 2 Ml Vial) 5 mg IVP Q6HR PRN PRN Reason: Nausea And Vomiting Last Admin: 08/22/22 01:29 Dose: 5 mg Mirtazapine (Mirtazapine 15 Mg Tab) 15 mg PO [facility] Last Admin: 08/22/22 20:13 Dose: 15 mg Morphine Sulfate (Morphine Sulfate 4 Mg/Ml Syringe) 4 mg IVP Q4HR PRN PRN Reason: Pain Naloxone HCl (Naloxone 0.4 Mg/Ml 1 Ml Vial) 0.2 mg IV Q2M PRN PRN Reason: Opioid Reversal Ondansetron HCl (Ondansetron 4 Mg/2 Ml Vial) 4 mg IVP Q6H PRN PRN Reason: Nausea And Vomiting Last Admin: 08/23/22 08:47 Dose: 4 mg Pantoprazole Sodium (Pantoprazole 40 Mg/10 Ml Vial) 40 mg IVP BID [facility] Last Admin: 08/23/22 08:47 Dose: 40 mg Physical exam: GENERAL: The patient is alert and oriented x3, appears in mild acute distress as he has been extremely nauseated and vomiting. Well developed, well nourished. HEENT: Pupils are round and equally reacting to light. EOMI. No scleral icterus. No conjunctival pallor. Normocephalic, atraumatic. No pharyngeal erythema. No thyromegaly. CARDIOVASCULAR: S1 and S2 present. No murmurs, rubs, or gallops. Tachycardic PULMONARY: Chest is clear to auscultation, no wheezing or crackles. ABDOMEN: Soft, tender, nondistended, normoactive bowel sounds. No palpable organomegaly. MUSCULOSKELETAL: No joint swelling or deformity. EXTREMITIES: No cyanosis, clubbing, or pedal edema. NEUROLOGICAL: Gross neurological examination did not reveal any focal deficits. SKIN: No rashes. Assessment: Hyperglycemia with uncontrolled diabetes type 1 with A1c 10.6 Intractable nausea vomiting abdominal pain likely secondary to diabetic gastroparesis Noncompliance with insulin dose and follow-up Diabetic peripheral neuropathy Major depression with suicidal ideation Borderline personality disorder Anxiety Cannabis use disorder Homelessness GI prophylaxis and DVT prophylaxis Plan: Patient will be continued on IV hydration with normal saline at 75 cc/h. Symptomatic management for nausea and vomiting. Recommend continue with Reglan and/or Zofran as patient is significantly more nauseated today and has been vomiting. Patient feels it is the Cymbalta with psychiatry following and is eating canceled and switched to Wellbutrin Blood sugars extremely elevated on this morning's labs although patient started having some increased nausea and vomiting has not been eating and blood sugars are in the low 100s recommend to monitor Accu-Cheks extremely closely. Patient was started back on insulin regimen with Levemir and preprandial insulin and sliding scale. Titrate dose as needed. Diabetic diet as tolerated. Continue with psychiatric medications as prescribed and patient is on petition for suicidal ideation and will need psychiatry clearance or possible 3 W. transfer once stabilized medically and able to tolerate oral intake. Recommend follow-up labs in the a.m. and will continue to monitor closely. Continue suicide sitter at bedside The impression and plan of care has been dictated by Meli Gustafson, Nurse Practitioner as directed. Dr. Lawrence MD I have performed a history and examination and MDM of this patient, discussed the same with the dictator, and agree with the dictator's assessment and plan as written ,documented as a scribe. Based on total visit time, I have performed more than 50% of the visit. Objective - Vital Signs Vital signs: Vital Signs Temp 97.9 F 08/23/22 16:00 Pulse 115 H 08/23/22 16:00 Resp 20 08/23/22 16:00 BP 126/82 08/23/22 16:00 Pulse Ox 98 08/23/22 16:00 FiO2 Intake & Output 08/23/22 08/23/22 08/24/22 06:59 18:59 06:59 Other: Voiding Method Toilet Toilet Urinal Urinal # Voids 2 2 - Labs CBC & Chem 7: 08/23/22 05:25 08/23/22 05:25 Labs: Abnormal Lab Results - Last 24 Hours (Table) 08/22/22 08/23/22 08/23/22 Range/Units 19:48 05:25 05:51 Sodium 136 L (137-145) mmol/L Chloride 97 L (98-107) mmol/L BUN 21 H (9-20) mg/dL Glucose 490 H (74-99) mg/dL POC Glucose (mg/dL) 214 H 460 H (70-110) mg/dL 08/23/22 Range/Units 09:15 Sodium (137-145) mmol/L Chloride (98-107) mmol/L BUN (9-20) mg/dL Glucose (74-99) mg/dL POC Glucose (mg/dL) 202 H (70-110) mg/dL
[2022-08-23 20:14] LABS: Glucose,Whole Blood 177 mg/dL (70-110)
[2022-08-23] MEDS: MELATONIN 5 MG TABLET PO SCH (20:59)
[2022-08-23] MEDS: MIRTAZAPINE 15 MG TAB PO SCH (21:00)
[2022-08-24] MEDS: SODIUM CHLORIDE 0.9% 1,000 ML IV SCH ×2 (06:05→18:14)
[2022-08-24 06:08] LABS: Glucose,Whole Blood 368 mg/dL (70-110)
[2022-08-24] MEDS: INSULIN ASPART (NovoLOG) 100 UNIT/ML VIAL SQ SCH ×7 (06:13→21:33)
[2022-08-24] MEDS: INSULIN DETEMIR (LEVEMIR) 100 UNIT/ML SYR SQ SCH (06:13)
[2022-08-24 07:10] LABS: Basophils # (A) 0.1 k/uL (0-0.2); Basophils % (A) 1 %; Eosinophils # (A) 0.2 k/uL (0-0.7); Eosinophils % (A) 2 %; HCT 43.3 % (39.0-53.0); HGB 14.4 gm/dL (13.0-17.5); Lymphocytes # (A) 2.9 k/uL (1.0-4.8); Lymphocytes % (A) 33 %; MCH 31.9 pg (25.0-35.0); MCHC 33.2 g/dL (31.0-37.0); MCV 96.3 fL (80.0-100.0); Mean Platelet Volume 6.9; Monocytes # (A) 0.7 k/uL (0-1.0); Monocytes % (A) 7 %; Neutrophils % (A) 56 %; Platelet Count 329 k/uL (150-450); RDW 13.2 % (11.5-15.5)
[2022-08-24 07:21] LABS: African American GFR (CKD) >90 (>60 ml/min/1.73 sqM); Anion Gap 10 mmol/L; Blood Urea Nitrogen 19 mg/dL (9-20); Calcium 8.8 mg/dL (8.4-10.2); Carbon Dioxide 28 mmol/L (22-30); Chloride 96 mmol/L (98-107); Glucose 410 mg/dL (74-99); Non-African American GFR(CKD) >90 (>60 ml/min/1.73 sqM); Potassium 4.8 mmol/L (3.5-5.1); Sodium 134 mmol/L (137-145)
[2022-08-24] MEDS: PANTOPRAZOLE 40 MG/10 ML VIAL IVP SCH ×2 (08:07→21:35)
[2022-08-24] MEDS: GABAPENTIN 300 MG CAP PO SCH ×3 (08:07→21:34)
[2022-08-24] MEDS: METOCLOPRAMIDE 5 MG/ML 2 ML VIAL IVP PRN (08:07)
[2022-08-24] MEDS: buPROPion XL 150 MG TAB.ER.24H PO SCH (08:07)
[2022-08-24 11:50] LABS: Glucose,Whole Blood 101 mg/dL (70-110)
[2022-08-24 14:29] LABS: Glucose,Whole Blood 152 mg/dL (70-110)
[2022-08-24 16:54] LABS: Glucose,Whole Blood 243 mg/dL (70-110)
--- NOTE | 2022-08-24 16:59 | P.PN ---
Progress Note - Text Interval History: Patient was seen today for psychiatric follow-up. States that he feels "blah" states that he refused the medications this morning because of the nausea and vomiting. Denies SI, HI, hallucinations Mental Status Exam: General Appearance: Patient appears to be tall, thin, alert, stated age. Patient appears to have a improving hygiene and grooming. Dressed in street clothing. Behavior: Patient is laying in bed without any agitated behavior. Eye contact is poor, improving Speech: Patient's speech is fluent and nonpressured. Monotone. Mood/Affect: Patient reports their mood is "BLAH", affect is improving Suicidality/Homicidality:No SI/HI. Perceptions: Patient denies any visual hallucinations and denies any auditory hallucinations Though content/process: There is no evidence of any delusional thought content and thought process is linear and goal-directed. [place]. Memory and concentration: AOX3, grossly intact for the purposes of this session. Judgment and insight: chronically poor/impulsive IMPRESSIONS: Major depressive disorder without psychotic features Borderline personality disorder anxiety disorder NOS Cannabis use disorder homelessness PLAN: -At this time will continue seeing patient daily to see if patient can either be cleared from psych or needs transfer back and continued care in the MHU. -Continue wellbutrin xl 150 mg daily for mood. cont remeron 15 mg qhs for insomnia/mood. melatonin 5 mg qhs for sleep [-Continue 1:1 sitter for safety] as [patient is impulsive and hx of suicide attempts. [-Cannot leave AMA at this time. Patient will need a petition and certification if attempting to leave AMA.] [-insemination worker to provide patient with outpatient mental health/psychiatry [facility] for appropriate follow up upon discharge] [-Will continue to follow along] -Please contact with any questions.
[2022-08-24 20:17] LABS: Glucose,Whole Blood 168 mg/dL (70-110)
[2022-08-24] MEDS: MELATONIN 5 MG TABLET PO SCH (21:34)
[2022-08-24] MEDS: MIRTAZAPINE 15 MG TAB PO SCH (21:34)
[2022-08-25] MEDS: SODIUM CHLORIDE 0.9% 1,000 ML IV SCH ×2 (05:03→18:52)
[2022-08-25 06:17] LABS: Glucose,Whole Blood 308 mg/dL (70-110)
[2022-08-25] MEDS: INSULIN DETEMIR (LEVEMIR) 100 UNIT/ML SYR SQ SCH (07:04)
[2022-08-25] MEDS: INSULIN ASPART (NovoLOG) 100 UNIT/ML VIAL SQ SCH ×7 (07:04→21:18)
[2022-08-25] MEDS: GABAPENTIN 300 MG CAP PO SCH ×3 (08:52→21:18)
[2022-08-25] MEDS: PANTOPRAZOLE 40 MG/10 ML VIAL IVP SCH ×2 (08:52→21:17)
[2022-08-25] MEDS: buPROPion XL 150 MG TAB.ER.24H PO SCH (08:52)
[2022-08-25 09:21] LABS: African American GFR (CKD) >90 (>60 ml/min/1.73 sqM); Anion Gap 11 mmol/L; Blood Urea Nitrogen 20 mg/dL (9-20); Calcium 8.9 mg/dL (8.4-10.2); Carbon Dioxide 28 mmol/L (22-30); Chloride 94 mmol/L (98-107); Glucose 433 mg/dL (74-99); Non-African American GFR(CKD) >90 (>60 ml/min/1.73 sqM); Potassium 4.5 mmol/L (3.5-5.1); Sodium 133 mmol/L (137-145)
[2022-08-25 11:44] LABS: Glucose,Whole Blood 199 mg/dL (70-110)
[2022-08-25 16:50] LABS: Glucose,Whole Blood 164 mg/dL (70-110)
--- NOTE | 2022-08-25 17:22 | P.PN ---
Progress Note - Text Interval History: Patient was seen today for psychiatric follow-up. States that he feels "good" Denies SI, HI, hallucinations, med side effects. Asking for discharge tomorrow because his father had a heart attack 2 days ago Mental Status Exam: General Appearance: Patient appears to be tall, thin, alert, stated age. Good hygiene and grooming. Dressed in street clothing. Behavior: Patient sitting up in bed playing Speech: Patient's speech is fluent and nonpressured. Mood/Affect: Patient reports their mood is "good" affect is full range Suicidality/Homicidality:No SI/HI. Perceptions: Patient denies any visual hallucinations and denies any auditory hallucinations Though content/process: There is no evidence of any delusional thought content and thought process is linear and goal-directed. Memory and concentration: AOX3, grossly intact for the purposes of this session. Judgment and insight: chronically poor/impulsive IMPRESSIONS: Major depressive disorder without psychotic features Borderline personality disorder anxiety disorder NOS Cannabis use disorder homelessness PLAN: -At this time will continue seeing patient daily to see if patient can either be cleared from psych or needs transfer back and continued care in the MHU. -Continue wellbutrin xl 150 mg daily for mood. cont remeron 15 mg qhs for insomnia/mood. melatonin 5 mg qhs for sleep -Can discontinue suicide precautions as patient has not been suicidal for 2 days and his mood has significantly improved on Wellbutrin [-Cannot leave AMA at this time. Patient will need a petition and certification if attempting to leave AMA.] [-ironworker helper shop to provide patient with outpatient mental health/psychiatry resources for appropriate follow up upon discharge] [-Will continue to follow along] -Please contact with any questions.
[2022-08-25 20:05] LABS: Glucose,Whole Blood 178 mg/dL (70-110)
[2022-08-25] MEDS: MIRTAZAPINE 15 MG TAB PO SCH (21:18)
[2022-08-25] MEDS: MELATONIN 5 MG TABLET PO SCH (21:18)
--- NOTE | 2022-08-26 01:41 | P.PN ---
Subjective Progress Note Date: 08/24/22 Patient is a 27-year-old male with a known history of diabetes type 1, diabetic peripheral neuropathy, gastropathy and prior history of DKA's, anxiety/depression currently everyday smoker/vaping and occasional marijuana use initially presented to ER voluntarily due to complaints of depression and suicidal ideation. Patient has been noncompliant with medications and is also homeless. Patient was initially admitted to inpatient psychiatric unit and was started back on his medications. Patient started having intractable nausea and vomiting, bloating and abdominal pain last night and patient stated that he started having gastroparesis flareup. Patient was transferred to medical floor due to above complaints and also elevated blood sugar. CT of the abdomen pelvis showed normal appendix. No significant abnormality in the abdominal pelvis. No renal stone or obstruction. No adverse change compare d to old exam. Chest x-ray showed normal chest. No change. Lab data showed WBC 16.3 hemoglobin 14.3 and platelets 396 BUN 23 and creatinine 0.57 calcium 9.4 potassium 4.2 and low radial-cephalic elevated. Urinalysis showed pH of 8.5. [place] 1.024 and 4+ ketones and acetone positive. 08/23/2022 Patient is seen and evaluated in follow-up today reporting he is nauseated and vomiting with history of gastroparesis. Patient's blood sugars were extremely elevated today although currently is not eating and recommend continue monitoring blood sugars closely. Patient maintained on IV hydration and will continue with follow-up labs in a.m. Patient feels his nausea and vomiting is from the Cymbalta that was started with psychiatry following and will be transitioning over to Wellbutrin. Patient continues to be on petition for suicidal ideation and does have suicide sitter at bedside. Patient reports increased depression although no thoughts of suicide at this time. Patient is afebrile with no chest pain or shortness of breath. 08/24/2022 Patient is currently sitting on side of the bed. Awake alert and oriented x3. Complains of nausea and episode of vomiting this morning. Blood sugar is fairly controlled now. Was elevated morning. No complaints of chest pain or shortness of breath. Patient was unable to take medications due to nausea. Psychiatry is on board. Continued on insulin regimen and sliding scale. Laboratory data showed WBC 9.0 hemoglobin 14.4 and platelets 329 sodium 134 potassium 4.8 chloride 96 bicarb is 28 BUN 19 and creatinine 0.76 and blood sugar was 410 this morning. Review of systems: Constitutional: No reports of fatigue, fever, or chills Cardiovascular: No reports of chest pain or palpitations Respiratory: No reports of shortness of breath or cough GI: reports of nausea with vomiting, no diarrhea : No reports of dysuria or retention Neurovascular: No reports of weakness or numbness All medications have been reviewed Active Medications Bupropion HCl (Bupropion Xl 150 Mg Tab.Er.24h) 150 mg PO DAILY [facility] Dextrose/Water (Dextrose 50% Syringe 50 Ml) 25 ml IVP PER PROTOCOL PRN; Protocol PRN Reason: Hypoglycemia Dextrose/Water (Dextrose 50% Syringe 50 Ml) 50 ml IVP PER PROTOCOL PRN; Protocol PRN Reason: Hypoglycemia Gabapentin (Gabapentin 300 Mg Cap) 600 mg PO TID [facility] Last Admin: 08/23/22 16:00 Dose: Not Given Sodium Chloride (Saline 0.9%) 1,000 mls @ 75 mls/hr IV .[id number] [facility] Last Admin: 08/23/22 16:00 Dose: Not Given Insulin Aspart (Insulin Aspart (Novolog) 100 Unit/Ml Vial) 10 unit SQ AC-TID [facility] Last Admin: 08/23/22 17:38 Dose: Not Given Insulin Aspart (Insulin Aspart (Novolog) 100 Unit/Ml Vial) 0 unit SQ ACHS [facility]; Protocol Last Admin: 08/23/22 17:39 Dose: Not Given Insulin Detemir (Insulin Detemir (Levemir) 100 Unit/Ml Syr) 25 unit SQ DAILY@0700 [facility] Last Admin: 08/23/22 06:08 Dose: 25 unit Lorazepam (Lorazepam 0.5 Mg Tab) 0.5 mg PO TID PRN PRN Reason: Anxiety Melatonin (Melatonin 5 Mg Tablet) 5 mg PO [facility] Last Admin: 08/22/22 20:13 Dose: 5 mg Metoclopramide HCl (Metoclopramide 5 Mg/Ml 2 Ml Vial) 5 mg IVP Q6HR PRN PRN Reason: Nausea And Vomiting Last Admin: 08/22/22 01:29 Dose: 5 mg Mirtazapine (Mirtazapine 15 Mg Tab) 15 mg PO [facility] Last Admin: 08/22/22 20:13 Dose: 15 mg Morphine Sulfate (Morphine Sulfate 4 Mg/Ml Syringe) 4 mg IVP Q4HR PRN PRN Reason: Pain Naloxone HCl (Naloxone 0.4 Mg/Ml 1 Ml Vial) 0.2 mg IV Q2M PRN PRN Reason: Opioid Reversal Ondansetron HCl (Ondansetron 4 Mg/2 Ml Vial) 4 mg IVP Q6H PRN PRN Reason: Nausea And Vomiting Last Admin: 08/23/22 08:47 Dose: 4 mg Pantoprazole Sodium (Pantoprazole 40 Mg/10 Ml Vial) 40 mg IVP BID [facility] Last Admin: 08/23/22 08:47 Dose: 40 mg Physical exam: GENERAL: The patient is alert and oriented x3, appears in mild acute distress as he has been extremely nauseated and vomiting. Well developed, well nourished. HEENT: Pupils are round and equally reacting to light. EOMI. No scleral icterus. No conjunctival pallor. Normocephalic, atraumatic. No pharyngeal erythema. No thyromegaly. CARDIOVASCULAR: S1 and S2 present. No murmurs, rubs, or gallops. Tachycardic PULMONARY: Chest is clear to auscultation, no wheezing or crackles. ABDOMEN: Soft, tender, nondistended, normoactive bowel sounds. No palpable organomegaly. MUSCULOSKELETAL: No joint swelling or deformity. EXTREMITIES: No cyanosis, clubbing, or pedal edema. NEUROLOGICAL: Gross neurological examination did not reveal any focal deficits. SKIN: No rashes. Assessment: Hyperglycemia with uncontrolled diabetes type 1 with A1c 10.6 Intractable nausea vomiting abdominal pain likely secondary to diabetic gastroparesis Noncompliance with insulin dose and follow-up Diabetic peripheral neuropathy Major depression with suicidal ideation Borderline personality disorder Anxiety Cannabis use disorder Homelessness GI prophylaxis and DVT prophylaxis Plan: Patient will be continued on IV hydration with normal saline at 75 cc/h. Symptomatic management for nausea and vomiting. Recommend continue with Reglan and/or Zofran as patient is significantly more nauseated today and has been vomiting. Patient feels it is the Cymbalta with psychiatry following and is eating canceled and switched to Wellbutrin Blood sugars extremely elevated on this morning's labs although patient started having some increased nausea and vomiting has not been eating and blood sugars are in the low 100s recommend to monitor Accu-Cheks extremely closely. Patient was started back on insulin regimen with Levemir and preprandial insulin and sliding scale. Titrate dose as needed. Diabetic diet as tolerated. Continue with psychiatric medications as prescribed and patient is on petition for suicidal ideation and will need psychiatry clearance or possible 3 W. transfer once stabilized medically and able to tolerate oral intake. Recommend follow-up labs in the a.m. and will continue to monitor closely. Continue suicide sitter at bedside Objective - Vital Signs Vital signs: Vital Signs Temp 97.9 F 08/24/22 20:33 Pulse 114 H 08/24/22 20:33 Resp 20 08/24/22 20:33 BP 111/72 08/24/22 20:33 Pulse Ox 97 08/24/22 20:33 FiO2 Intake & Output 08/24/22 08/24/22 08/25/22 06:59 18:59 06:59 Intake Total 710 Balance 710 Intake: Oral 710 Other: Voiding Method Toilet Toilet Urinal Urinal # Voids 1 2 - Labs CBC & Chem 7: 08/24/22 06:16 08/25/22 08:36 Labs: Abnormal Lab Results - Last 24 Hours (Table) 08/24/22 08/24/22 08/24/22 Range/Units 06:02 06:16 14:27 Sodium 134 L (137-145) mmol/L Chloride 96 L (98-107) mmol/L Glucose 410 H (74-99) mg/dL POC Glucose (mg/dL) 368 H 152 H (70-110) mg/dL 08/24/22 08/24/22 Range/Units 16:50 20:16 Sodium (137-145) mmol/L Chloride (98-107) mmol/L Glucose (74-99) mg/dL POC Glucose (mg/dL) 243 H 168 H (70-110) mg/dL
--- NOTE | 2022-08-26 01:43 | P.PN ---
Subjective Progress Note Date: 08/25/22 Patient is a 27-year-old male with a known history of diabetes type 1, diabetic peripheral neuropathy, gastropathy and prior history of DKA's, anxiety/depression currently everyday smoker/vaping and occasional marijuana use initially presented to ER voluntarily due to complaints of depression and suicidal ideation. Patient has been noncompliant with medications and is also homeless. Patient was initially admitted to inpatient psychiatric unit and was started back on his medications. Patient started having intractable nausea and vomiting, bloating and abdominal pain last night and patient stated that he started having gastroparesis flareup. Patient was transferred to medical floor due to above complaints and also elevated blood sugar. CT of the abdomen pelvis showed normal appendix. No significant abnormality in the abdominal pelvis. No renal stone or obstruction. No adverse change compare d to old exam. Chest x-ray showed normal chest. No change. Lab data showed WBC 16.3 hemoglobin 14.3 and platelets 396 BUN 23 and creatinine 0.57 calcium 9.4 potassium 4.2 and low radial-cephalic elevated. Urinalysis showed pH of 8.5. [place] 1.024 and 4+ ketones and acetone positive. 08/23/2022 Patient is seen and evaluated in follow-up today reporting he is nauseated and vomiting with history of gastroparesis. Patient's blood sugars were extremely elevated today although currently is not eating and recommend continue monitoring blood sugars closely. Patient maintained on IV hydration and will continue with follow-up labs in a.m. Patient feels his nausea and vomiting is from the Cymbalta that was started with psychiatry following and will be transitioning over to Wellbutrin. Patient continues to be on petition for suicidal ideation and does have suicide sitter at bedside. Patient reports increased depression although no thoughts of suicide at this time. Patient is afebrile with no chest pain or shortness of breath. 08/24/2022 Patient is currently sitting on side of the bed. Awake alert and oriented x3. Complains of nausea and episode of vomiting this morning. Blood sugar is fairly controlled now. Was elevated morning. No complaints of chest pain or shortness of breath. Patient was unable to take medications due to nausea. Psychiatry is on board. Continued on insulin regimen and sliding scale. Laboratory data showed WBC 9.0 hemoglobin 14.4 and platelets 329 sodium 134 potassium 4.8 chloride 96 bicarb is 28 BUN 19 and creatinine 0.76 and blood sugar was 410 this morning. 08/25/2022 Patient is currently walking in the room. No complaints of chest pain. No s hortness of breath. Nausea is better. Patient is requesting discharge home. Otherwise blood sugar was elevated again this morning at 433 No complaints of headache or dizziness or lightheadedness. Blood pressures controlled. Laboratory testing sodium 133 potassium 4.5 chloride 94 bicarb is 28 BUN 20 and creatinine 0.85. Patient is on IV hydration with normal saline. Today. He had a bowel movement today. Review of systems: Constitutional: No reports of fatigue, fever, or chills Cardiovascular: No reports of chest pain or palpitations Respiratory: No reports of shortness of breath or cough GI: reports of nausea with vomiting, no diarrhea : No reports of dysuria or retention Neurovascular: No reports of weakness or numbness All medications have been reviewed Active Medications Bupropion HCl (Bupropion Xl 150 Mg Tab.Er.24h) 150 mg PO DAILY [facility] Dextrose/Water (Dextrose 50% Syringe 50 Ml) 25 ml IVP PER PROTOCOL PRN; Protocol PRN Reason: Hypoglycemia Dextrose/Water (Dextrose 50% Syringe 50 Ml) 50 ml IVP PER PROTOCOL PRN; Protocol PRN Reason: Hypoglycemia Gabapentin (Gabapentin 300 Mg Cap) 600 mg PO TID [facility] Last Admin: 08/23/22 16:00 Dose: Not Given Sodium Chloride (Saline 0.9%) 1,000 mls @ 75 mls/hr IV .[id number] [facility] Last Admin: 08/23/22 16:00 Dose: Not Given Insulin Aspart (Insulin Aspart (Novolog) 100 Unit/Ml Vial) 10 unit SQ AC-TID [facility] Last Admin: 08/23/22 17:38 Dose: Not Given Insulin Aspart (Insulin Aspart (Novolog) 100 Unit/Ml Vial) 0 unit SQ ACHS [facility]; Protocol Last Admin: 08/23/22 17:39 Dose: Not Given Insulin Detemir (Insulin Detemir (Levemir) 100 Unit/Ml Syr) 25 unit SQ DAILY@0700 [facility] Last Admin: 08/23/22 06:08 Dose: 25 unit Lorazepam (Lorazepam 0.5 Mg Tab) 0.5 mg PO TID PRN PRN Reason: Anxiety Melatonin (Melatonin 5 Mg Tablet) 5 mg PO HS [facility] Last Admin: 08/22/22 20:13 Dose: 5 mg Metoclopramide HCl (Metoclopramide 5 Mg/Ml 2 Ml Vial) 5 mg IVP Q6HR PRN PRN Reason: Nausea And Vomiting Last Admin: 08/22/22 01:29 Dose: 5 mg Mirtazapine (Mirtazapine 15 Mg Tab) 15 mg PO HS [facility] Last Admin: 08/22/22 20:13 Dose: 15 mg Morphine Sulfate (Morphine Sulfate 4 Mg/Ml Syringe) 4 mg IVP Q4HR PRN PRN Reason: Pain Naloxone HCl (Naloxone 0.4 Mg/Ml 1 Ml Vial) 0.2 mg IV Q2M PRN PRN Reason: Opioid Reversal Ondansetron HCl (Ondansetron 4 Mg/2 Ml Vial) 4 mg IVP Q6H PRN PRN Reason: Nausea And Vomiting Last Admin: 08/23/22 08:47 Dose: 4 mg Pantoprazole Sodium (Pantoprazole 40 Mg/10 Ml Vial) 40 mg IVP BID [facility] Last Admin: 08/23/22 08:47 Dose: 40 mg Physical exam: GENERAL: The patient is alert and oriented x3, appears in mild acute distress as he has been extremely nauseated and vomiting. Well developed, well nourished. HEENT: Pupils are round and equally reacting to light. EOMI. No scleral icterus. No conjunctival pallor. Normocephalic, atraumatic. No pharyngeal erythema. No t hyromegaly. CARDIOVASCULAR: S1 and S2 present. No murmurs, rubs, or gallops. Tachycardic PULMONARY: Chest is clear to auscultation, no wheezing or crackles. ABDOMEN: Soft, tender, nondistended, normoactive bowel sounds. No palpable organomegaly. MUSCULOSKELETAL: No joint swelling or deformity. EXTREMITIES: No cyanosis, clubbing, or pedal edema. NEUROLOGICAL: Gross neurological examination did not reveal any focal deficits. SKIN: No rashes. Assessment: Hyperglycemia with uncontrolled diabetes type 1 with A1c 10.6 Intractable nausea vomiting abdominal pain likely secondary to diabetic gastroparesis Noncompliance with insulin dose and follow-up Diabetic peripheral neuropathy Major depression with suicidal ideation Borderline personality disorder Anxiety Cannabis use disorder Homelessness GI prophylaxis and DVT prophylaxis Plan: Patient will be continued on IV hydration with normal saline at 75 cc/h. Symptomatic management for nausea and vomiting. Recommend continue with Reglan and/or Zofran as patient is significantly more nauseated today and has been vomiting. Patient feels it is the Cymbalta with psychiatry following and is eating canceled and switched to Wellbutrin Blood sugars extremely elevated on this morning's labs although patient started having some increased nausea and vomiting has not been eating and blood sugars are in the low 100s recommend to monitor Accu-Cheks extremely closely. Patient was started back on insulin regimen with Levemir and preprandial insulin and sliding scale. Titrate dose as needed. Diabetic diet as tolerated. Continue with psychiatric medications as prescribed and patient is on petition for suicidal ideation and will need psychiatry clearance or possible 3 W. transfer once stabilized medically and able to tolerate oral intake. Recommend follow-up labs in the a.m. and will continue to monitor closely. Continue suicide sitter at bedside Objective - Vital Signs Vital signs: Vital Signs Temp 98.1 F 08/25/22 16:00 Pulse 92 08/25/22 16:00 Resp 18 08/25/22 16:00 BP 115/82 08/25/22 16:00 Pulse Ox 100 08/25/22 16:00 FiO2 Intake & Output 08/25/22 08/25/22 08/26/22 06:59 18:59 06:59 Intake Total 600 1680 Output Total 1 Balance 600 1679 Intake: Oral 600 1680 Output: Stool 1 Other: # Voids 1 3 - Labs CBC & Chem 7: 08/24/22 06:16 08/25/22 08:36 Labs: Abnormal Lab Results - Last 24 Hours (Table) 08/25/22 08/25/22 08/25/22 Range/Units 06:16 08:36 11:31 Sodium 133 L (137-145) mmol/L Chloride 94 L (98-107) mmol/L Glucose 433 H (74-99) mg/dL POC Glucose (mg/dL) 308 H 199 H (70-110) mg/dL 08/25/22 08/25/22 Range/Units 16:37 20:04 Sodium (137-145) mmol/L Chloride (98-107) mmol/L Glucose (74-99) mg/dL POC Glucose (mg/dL) 164 H 178 H (70-110) mg/dL
[2022-08-26 02:12] LABS: Glucose,Whole Blood 332 mg/dL (70-110)
[2022-08-26 06:09] LABS: Glucose,Whole Blood 344 mg/dL (70-110)
[2022-08-26] MEDS: INSULIN ASPART (NovoLOG) 100 UNIT/ML VIAL SQ SCH ×6 (06:25→16:55)
[2022-08-26] MEDS: INSULIN DETEMIR (LEVEMIR) 100 UNIT/ML SYR SQ SCH (06:25)
[2022-08-26 08:07] LABS: Basophils # (A) 0.1 k/uL (0-0.2); Basophils % (A) 1 %; Eosinophils # (A) 0.3 k/uL (0-0.7); Eosinophils % (A) 3 %; HCT 43.7 % (39.0-53.0); HGB 14.9 gm/dL (13.0-17.5); Lymphocytes # (A) 2.8 k/uL (1.0-4.8); Lymphocytes % (A) 29 %; MCH 31.8 pg (25.0-35.0); MCV 93.5 fL (80.0-100.0); Mean Platelet Volume 7.1; Monocytes # (A) 0.6 k/uL (0-1.0); Monocytes % (A) 7 %; Neutrophils # (A) 5.4 k/uL (1.3-7.7); Neutrophils % (A) 58 %; Platelet Count 315 k/uL (150-450); RBC 4.67 m/uL (4.30-5.90); RDW 13.4 % (11.5-15.5); WBC 9.4 k/uL (3.8-10.6)
[2022-08-26] MEDS: PANTOPRAZOLE 40 MG/10 ML VIAL IVP SCH (08:21)
[2022-08-26] MEDS: GABAPENTIN 300 MG CAP PO SCH ×2 (08:21→16:55)
[2022-08-26 08:45] LABS: African American GFR (CKD) >90 (>60 ml/min/1.73 sqM); Anion Gap 11 mmol/L; Blood Urea Nitrogen 21 mg/dL (9-20); Calcium 9.1 mg/dL (8.4-10.2); Carbon Dioxide 30 mmol/L (22-30); Chloride 94 mmol/L (98-107); Glucose 342 mg/dL (74-99); Non-African American GFR(CKD) >90 (>60 ml/min/1.73 sqM); Potassium 4.7 mmol/L (3.5-5.1); Sodium 135 mmol/L (137-145)
[2022-08-26] MEDS: SODIUM CHLORIDE 0.9% 1,000 ML IV SCH (11:31)
[2022-08-26 11:39] LABS: Glucose,Whole Blood 188 mg/dL (70-110)
[2022-08-26] MEDS: buPROPion XL 150 MG TAB.ER.24H PO SCH (11:59)
[2022-08-26 12:37] VITALS: BP 149/67; PULSE 84; RESP 16; TEMP 97.8
--- NOTE | 2022-08-26 16:01 | P.PN ---
Progress Note - Text Progress Note Date: 08/26/22 Interval History: Patient was seen today for psychiatric follow-up. Patient claims that he is d oing a bit better today with regards to his mood. He states that the medications are not been upsetting his stomach. He states that the Remeron is allowing him to sleep more at nighttime. Claims that the Wellbutrin is also a better fit for him for his anxiety and mood. Claims that he is more hopeful about life. He was dressed in street clothing and appeared to have improvement in hygiene and grooming. He states that he was able to tolerate more food today. At this time he is denying any auditory or visual hallucinations. Denying any suicidal or homicidal ideations intent or plan. He claims that he wants to live to "show people that I'm worth it" and also spoke about getting another job. Mental Status Exam: General Appearance: Patient appears to be tall, thin, alert, stated age. Good hygiene and grooming. Dressed in street clothing. Behavior: Patient sitting up in bed , more cooperative today. Speech: Patient's speech is fluent and nonpressured. Mood/Affect: Patient reports their mood is "good" affect is full range Suicidality/Homicidality:No SI/HI. Perceptions: Patient denies any visual hallucinations and denies any auditory hallucinations Though content/process: There is no evidence of any delusional thought content and thought process is linear and goal-directed. Memory and concentration: AOX3, grossly intact for the purposes of this session. Judgment and insight: chronically poor/impulsive, improving IMPRESSIONS: Major depressive disorder without psychotic features Borderline personality disorder anxiety disorder NOS Cannabis use disorder homelessness PLAN: -Continue wellbutrin xl 150 mg daily for mood. cont remeron 15 mg qhs for insomnia/mood. melatonin 5 mg qhs for sleep [-rebar worker to provide patient with outpatient mental health/psychiatry resources for appropriate follow up upon discharge] -At this time psychiatry will sign off this patient is improving, and can continue with outpatient treatment. -Please contact with any questions.
[2022-08-26 16:27] LABS: Glucose,Whole Blood 270 mg/dL (70-110)
--- NOTE | 2022-08-31 15:01 | PN ---
PROGRESS NOTE DATE OF SERVICE: 08/26/2022 CHIEF COMPLAINT: Intractable nausea and vomiting. HISTORY OF PRESENT ILLNESS: This gentleman is doing well and blood sugars are under good control. PHYSICAL EXAMINATION: CHEST: Clear. CARDIAC: Normal. ABDOMEN: Soft and nontender. IMPRESSION: Intractable nausea and vomiting and uncontrolled diabetes. PLAN: Probably home today. MMODL / IJN: [id number] /
--- NOTE | 2022-09-03 21:20 | DS ---
DISCHARGE SUMMARY CHIEF COMPLAINT: Diabetic ketoacidosis. HISTORY OF PRESENT ILLNESS AND PHYSICAL EXAMINATION: Details of this man's history and physical can be found in the initial workup. LABORATORY STUDIES: While he was in the hospital, he had laboratory studies, details of which can be found in the laboratory section of his chart. COURSE IN THE HOSPITAL: After admission, he was placed on bedrest, started on intravenous fluids and insulin drip and his DKA was resolved. He was then started back on his routine medications and was discharged. He will be followed in the office. FINAL DIAGNOSES: 1. Diabetic ketoacidosis. 2. Dehydration. 3. Gastroparesis. 4. Peripheral neuropathy. 5. Depression. OPERATIONS: None. CONSULTATION: None. He is improved. MMODL / IJN: [id number] /
== END 2022-08-26 17:05 | disposition home or self-care (01) | DRG 420 ==
LOC: OBSVTOIN 20:46 → 3SCARD 20:46
PROVIDERS: ADMIT Family Medicine; ATTEND Family Medicine
DX: E10.10 Type 1 diabetes mellitus with ketoacidosis without coma (principal); E10.43 Type 1 diabetes mellitus with diabetic autonomic (poly)neuropathy; E10.42 Type 1 diabetes mellitus with diabetic polyneuropathy; F41.9 Anxiety disorder, unspecified; F17.290 Nicotine dependence, other tobacco product, uncomplicated; E10.65 Type 1 diabetes mellitus with hyperglycemia; K31.84 Gastroparesis; R45.851 Suicidal ideations; F60.3 Borderline personality disorder; J45.909 Unspecified asthma, uncomplicated; E86.0 Dehydration; F32.9 Major depressive disorder, single episode, unspecified; L30.9 Dermatitis, unspecified; Z79.4 Long term (current) use of insulin; Z91.199 Patient's noncompliance with other medical treatment and regimen due to unspecified reason
CPT/HCPCS: 71045; 74176; 80048; 80053; 81001; 82009; 83735; 85025; 85027

== ENCOUNTER 2022-08-29 14:01 | Observation (INO) | payer OTHER ==
[2022-08-29] MEDS ORDERED: SODIUM CHLORIDE 0.9% 2,000 ML IV STA (14:09)
[2022-08-29] MEDS ORDERED: ONDANSETRON 4 MG/2 ML VIAL IVP STA (14:09)
[2022-08-29 14:36] LABS: Basophils % (A) 0 %; Eosinophils # (A) 0.1 k/uL (0-0.7); Eosinophils % (A) 1 %; HCT 43.7 % (39.0-53.0); HGB 14.4 gm/dL (13.0-17.5); Lymphocytes # (A) 1.8 k/uL (1.0-4.8); Lymphocytes % (A) 16 %; MCHC 33.1 g/dL (31.0-37.0); MCV 96.9 fL (80.0-100.0); Mean Platelet Volume 7.9; Monocytes # (A) 0.3 k/uL (0-1.0); Monocytes % (A) 2 %; Neutrophils # (A) 8.8 k/uL (1.3-7.7); Neutrophils % (A) 78 %; Platelet Count 360 k/uL (150-450); RBC 4.51 m/uL (4.30-5.90); RDW 13.3 % (11.5-15.5); WBC 11.2 k/uL (3.8-10.6)
[2022-08-29 15:04] LABS: Appearance,Urine Clear (Clear); Bilirubin,Urine Negative (Negative); Blood,Urine Negative (Negative); Color,Urine Colorless; Glucose,Urine (UA) 4+ (Negative); Leukocyte Esterase,Urine Negative (Negative); Nitrite,Urine Negative (Negative); Protein,Urine Negative (Negative); Specific Gravity,Urine 1.026 (1.001-1.035); Urobilinogen,Urine <2.0 mg/dL (<2.0)
[2022-08-29 15:06] LABS: ALT 25 U/L (4-49); AST 19 U/L (17-59); African American GFR (CKD) >90 (>60 ml/min/1.73 sqM); Albumin 4.7 g/dL (3.5-5.0); Alkaline Phosphatase 124 U/L (38-126); Anion Gap 31 mmol/L; Blood Urea Nitrogen 21 mg/dL (9-20); Calcium 9.1 mg/dL (8.4-10.2); Chloride 100 mmol/L (98-107); Lipase 92 U/L (23-300); Non-African American GFR(CKD) >90 (>60 ml/min/1.73 sqM); Potassium 5.1 mmol/L (3.5-5.1); Sodium 138 mmol/L (137-145); Total Bilirubin 0.8 mg/dL (0.2-1.3); Total Protein 7.2 g/dL (6.3-8.2)
[2022-08-29 15:09] LABS: Ketones,Urine 4+ (Negative)
[2022-08-29 15:26] LABS: Carbon Dioxide 7 mmol/L (22-30); Glucose 635 mg/dL (74-99)
--- NOTE | 2022-08-29 15:53 | ED ---
General Adult HPI - General Chief complaint: Nausea/Vomiting/Diarrhea Stated complaint: Hyperglycemia Source: patient, EMS Mode of arrival: EMS Limitations: no limitations - History of Present Illness Initial comments: 27-year-old male well known to the emergency department who presents today for nausea and vomiting. He is a type I diabetic and is known to be noncompliant. He was at a friend's house today when he had nausea and vomiting. Friend called EMS. He states that he did not take his insulin today. He admits to generalized abdominal pain. No fevers. HPI is limited due to patient's current status and actively vomiting - Related Data Home Medications Medication Instructions Recorded Confirmed INSULIN ASPART (NovoLOG) [NovoLOG 10 unit SQ AC-TID 06/29/21 08/29/22 (formulary)] Gabapentin 600 mg PO TID 12/19/21 08/29/22 Insulin Detemir (Levemir) [Levemir] 25 unit SQ DAILY 04/11/22 08/29/22 Previous Rx's Medication Instructions Recorded Mirtazapine [Remeron] 15 mg PO HS #10 tab 08/26/22 buPROPion XL [Wellbutrin XL] 150 mg PO DAILY #10 tab 08/26/22 Allergies Allergy/AdvReac Type Severity Reaction Status Date / Time No Known Allergies Allergy Verified 08/29/22 14:37 Review of Systems ROS Statement: Those systems with pertinent positive or pertinent negative responses have been documented in the HPI. ROS Other: All systems not noted in ROS Statement are negative. Past Medical History Past Medical History: Asthma, Diabetes Mellitus, Neurologic Disorder, Skin Disorder Additional Past Medical History / Comment(s): IDDM type I, neuropathy bilateral feet, DKA, eczema. History of Any Multi-Drug Resistant Organisms: None Reported Past Surgical History: Adenoidectomy Additional Past Surgical History / Comment(s): 2002 Past Anesthesia/Blood Transfusion Reactions: No Reported Reaction Past Psychological History: Anxiety, Depression Smoking Status: Current every day smoker, Vaper Past Alcohol Use History: None Reported Past Drug Use History: Marijuana - Past Family History Mother Family Medical History: CVA/TIA Additional Family Medical History / Comment(s): TIA Father Family Medical History: Hyperlipidemia, Hypertension Additional Family Medical History / Comment(s): . General Exam Limitations: no limitations Course Vital Signs 08/29/22 08/29/22 08/29/22 14:05 15:00 16:00 Temperature 97.5 F L Pulse Rate 130 H 126 H 125 H Respiratory 24 22 21 Rate Blood Pressure 109/81 125/88 127/90 O2 Sat by Pulse 98 99 98 Oximetry 08/29/22 08/29/22 08/29/22 17:00 18:00 19:38 Temperature Pulse Rate 128 H 126 H 124 H Respiratory 22 16 18 Rate Blood Pressure 124/87 130/91 126/87 O2 Sat by Pulse 98 96 99 Oximetry Procedures - [place] Protocol (Time Out) Nurse: Zafar Malone Medical Decision Making - Medical Decision Making Was pt. sent in by a medical professional or institution (, PA, MACHINE STAKER, urgent care, hospital, or intermediate...) When possible be specific @ -[No] Did you speak to anyone other than the patient for history (EMS, parent, family, police, friend...)? What history was obtained from this source @ -[No] Did you review nursing and triage notes (agree or disagree)? Why? @ -[I reviewed and agree with nursing and triage notes] Were old charts reviewed (outside hosp., previous admission, EMS record, old EKG, old radiological studies, urgent care reports/EKG's, intermediate records)? Report findings @ -[No old charts were reviewed] Differential Diagnosis (chest pain, altered mental status, abdominal pain women, abdominal pain men, vaginal bleeding, weakness, fever, dyspnea, syncope, headache, dizziness, GI bleed, back pain, seizure, CVA, palpatations, mental health, musculoskeletal)? @ -[not applicable] EKG interpreted by me (3pts min.). @ -[As above] X-rays interpreted by me (1pt min.). @ -[None done] CT interpreted by me (1pt min.). @ -[None done] U/S interpreted by me (1pt. min.). @ -[None done] What testing was considered but not performed or refused? (CT, X-rays, U/S, labs)? Why? @ -[None] What meds were considered but not given or refused? Why? @ -[None] Did you discuss the management of the patient with other professionals (professionals i.e. , PA, MACHINE STAKER, lab, RT, psych nurse, social media marketing analyst, analytics lead, teacher, aoc director combat plans officer, home health care case manager)? Give summary @ -[No] Was smoking cessation discussed for >3mins.? @ -[No] Was critical care preformed (if so, how long)? @ -[No] Were there social determinants of health that impacted care today? How? (Homelessness, low income, unemployed, alcoholism, drug addiction, transportation, low edu. Level, literacy, decrease access to med. care, care home, rehab)? @ -[No] Was there de-escalation of care discussed even if they declined (Discuss DNR or withdrawal of care, Hospice)? DNR status @ -[No] What co-morbidities impacted this encounter? (DM, HTN, Smoking, COPD, CAD, Cancer, CVA, ARF, Chemo, Hep., AIDS, mental health diagnosis, sleep apnea, morbid obesity)? @ -[None] Was patient admitted / discharged? Hospital course, mention meds given and route, prescriptions, significant lab abnormalities, going to OR and other pertinent info. @ -Unremarkable patient was placed into room 6. A thorough history and physical exam was performed. Laboratory studies are conducted. Glucose is elevated at 635. CO2 7. Anion gap of 31. Patient is in DKA and placed on an insulin drip. He will be admitted at this time. Spoke with Dr. Valenzuela Undiagnosed new problem with uncertain prognosis? @ -[No] Drug Therapy requiring intensive monitoring for toxicity (Heparin, Nitro, Insulin, Cardizem)? @ -[No] Were any procedures done? @ -[No] Diagnosis/symptom? @ -[default] Acute, or Chronic, or Acute on Chronic? @ -[default] Uncomplicated (without systemic symptoms) or Complicated (systemic symptoms)? @ -[default] Side effects of treatment? @ -[No] Exacerbation, Progression, or Severe Exacerbation? @ -[No] Poses a threat to life or bodily function? How? (Chest pain, [place], GA, pneumonia, PE, COPD, DKA, ARF, appy, cholecystitis, CVA, Diverticulitis, Homicidal, Suicidal, threat to staff... and all critical care pts) @ -[No] - Lab Data Result diagrams: 08/29/22 14:13 08/29/22 18:09 Lab Results 08/29/22 08/29/22 08/29/22 Range/Units 14:13 14:13 14:13 WBC 11.2 H (3.8-10.6) k/uL RBC 4.51 (4.30-5.90) m/uL Hgb 14.4 (13.0-17.5) gm/dL Hct 43.7 (39.0-53.0) % MCV 96.9 (80.0-100.0) fL MCH 32.0 (25.0-35.0) pg MCHC 33.1 (31.0-37.0) g/dL RDW 13.3 (11.5-15.5) % Plt Count 360 (150-450) k/uL MPV 7.9 Neutrophils % 78 % Lymphocytes % 16 % Monocytes % 2 % Eosinophils % 1 % Basophils % 0 % Neutrophils # 8.8 H (1.3-7.7) k/uL Lymphocytes # 1.8 (1.0-4.8) k/uL Monocytes # 0.3 (0-1.0) k/uL Eosinophils # 0.1 (0-0.7) k/uL Basophils # 0.0 (0-0.2) k/uL Sodium 138 (137-145) mmol/L Potassium 5.1 (3.5-5.1) mmol/L Chloride 100 (98-107) mmol/L Carbon Dioxide 7 L* (22-30) mmol/L Anion Gap 31 mmol/L BUN 21 H (9-20) mg/dL Creatinine 0.91 (0.66-1.25) mg/dL Est GFR (CKD-EPI)AfAm >90 (>60 ml/min/1.73 sqM) Est GFR (CKD-EPI)NonAf >90 (>60 ml/min/1.73 sqM) Glucose 635 H* (74-99) mg/dL Lactic Ac Sepsis Rflx Plasma Lactic Acid Len (0.7-2.0) mmol/L Calcium 9.1 (8.4-10.2) mg/dL Total Bilirubin 0.8 (0.2-1.3) mg/dL AST 19 (17-59) U/L ALT 25 (4-49) U/L Alkaline Phosphatase 124 (38-126) U/L Total Protein 7.2 (6.3-8.2) g/dL Albumin 4.7 (3.5-5.0) g/dL Lipase 92 (23-300) U/L Urine Color Colorless Urine Appearance Clear (Clear) Urine pH 5.0 (5.0-8.0) Ur Specific [place] 1.026 (1.001-1.035) Urine Protein Negative (Negative) Urine Glucose (UA) 4+ H (Negative) Urine Ketones 4+ H (Negative) Urine Blood Negative (Negative) Urine Nitrite Negative (Negative) Urine Bilirubin Negative (Negative) Urine Urobilinogen <2.0 (<2.0) mg/dL Ur Leukocyte Esterase Negative (Negative) Acetone, Qual Positive (Negative) 08/29/22 08/29/22 Range/Units 14:13 15:32 WBC (3.8-10.6) k/uL RBC (4.30-5.90) m/uL Hgb (13.0-17.5) gm/dL Hct (39.0-53.0) % MCV (80.0-100.0) fL MCH (25.0-35.0) pg MCHC (31.0-37.0) g/dL RDW (11.5-15.5) % Plt Count (150-450) k/uL MPV Neutrophils % % Lymphocytes % % Monocytes % % Eosinophils % % Basophils % % Neutrophils # (1.3-7.7) k/uL Lymphocytes # (1.0-4.8) k/uL Monocytes # (0-1.0) k/uL Eosinophils # (0-0.7) k/uL Basophils # (0-0.2) k/uL Sodium (137-145) mmol/L Potassium (3.5-5.1) mmol/L Chloride (98-107) mmol/L Carbon Dioxide (22-30) mmol/L Anion Gap mmol/L BUN (9-20) mg/dL Creatinine (0.66-1.25) mg/dL Est GFR (CKD-EPI)AfAm (>60 ml/min/1.73 sqM) Est GFR (CKD-EPI)NonAf (>60 ml/min/1.73 sqM) Glucose (74-99) mg/dL Lactic Ac Sepsis Rflx Y Plasma Lactic Acid Len 3.5 H* (0.7-2.0) mmol/L Calcium (8.4-10.2) mg/dL Total Bilirubin (0.2-1.3) mg/dL AST (17-59) U/L ALT (4-49) U/L Alkaline Phosphatase (38-126) U/L Total Protein (6.3-8.2) g/dL Albumin (3.5-5.0) g/dL Lipase (23-300) U/L Urine Color Urine Appearance (Clear) Urine pH (5.0-8.0) Ur Specific [place] (1.001-1.035) Urine Protein (Negative) Urine Glucose (UA) (Negative) Urine Ketones (Negative) Urine Blood (Negative) Urine Nitrite (Negative) Urine Bilirubin (Negative) Urine Urobilinogen (<2.0) mg/dL Ur Leukocyte Esterase (Negative) Acetone, Qual (Negative) Disposition Clinical Impression: DKA (diabetic ketoacidoses) Disposition: ADMITTED IP TO THIS [facility] Condition: Serious Is patient prescribed a controlled substance at d/c from ED?: No Time of Disposition: 15:53 Decision to Admit Reason: Admit from EC Decision Date: 08/29/22 Decision Time: 15:53
[2022-08-29] MEDS: diphenhydrAMINE 50 MG/ML 1 ML VIAL IVP SCH (16:09)
[2022-08-29] MEDS: METOCLOPRAMIDE 5 MG/ML 2 ML VIAL IVP SCH (16:11)
[2022-08-29] MEDS: INSULIN REGULAR 100 UNIT in SODIUM CHLORIDE 0.9% 100 ML IV SCH (16:23)
[2022-08-29] MEDS: SODIUM CHLORIDE 0.9% 1,000 ML IV SCH (16:26)
[2022-08-29 17:32] LABS: Glucose,Whole Blood 366 mg/dL (70-110)
[2022-08-29 18:40] LABS: African American GFR (CKD) >90 (>60 ml/min/1.73 sqM); Anion Gap 22 mmol/L; Blood Urea Nitrogen 18 mg/dL (9-20); Carbon Dioxide 11 mmol/L (22-30); Chloride 113 mmol/L (98-107); Glucose 332 mg/dL (74-99); Non-African American GFR(CKD) >90 (>60 ml/min/1.73 sqM); Sodium 146 mmol/L (137-145)
[2022-08-29 18:42] LABS: Glucose,Whole Blood 260 mg/dL (70-110)
[2022-08-29] MEDS: D5-0.45% NACL WITH KCL 20MEQ/L 1,000 ML IV SCH (19:00)
[2022-08-29 19:39] LABS: Glucose,Whole Blood 211 mg/dL (70-110)
[2022-08-29 21:03] LABS: Glucose,Whole Blood 181 mg/dL (70-110)
[2022-08-29 22:04] LABS: Glucose,Whole Blood 173 mg/dL (70-110)
[2022-08-29 22:20] LABS: African American GFR (CKD) >90 (>60 ml/min/1.73 sqM); Anion Gap 13 mmol/L; Blood Urea Nitrogen 16 mg/dL (9-20); Carbon Dioxide 17 mmol/L (22-30); Chloride 113 mmol/L (98-107); Glucose 180 mg/dL (74-99); Non-African American GFR(CKD) >90 (>60 ml/min/1.73 sqM); Phosphorus 2.4 mg/dL (2.5-4.5); Potassium 4.2 mmol/L (3.5-5.1); Sodium 143 mmol/L (137-145)
[2022-08-29 22:54] LABS: Calcium 8.4 mg/dL (8.4-10.2)
[2022-08-30 00:25] LABS: Glucose,Whole Blood 211 mg/dL (70-110)
[2022-08-30] MEDS: diphenhydrAMINE 50 MG/ML 1 ML VIAL IVP SCH ×3 (00:31→16:13)
[2022-08-30] MEDS: METOCLOPRAMIDE 5 MG/ML 2 ML VIAL IVP SCH ×3 (00:31→16:40)
[2022-08-30 01:32] LABS: Glucose,Whole Blood 166 mg/dL (70-110)
[2022-08-30 02:31] LABS: Glucose,Whole Blood 129 mg/dL (70-110)
[2022-08-30 03:35] LABS: Glucose,Whole Blood 107 mg/dL (70-110)
[2022-08-30 03:45] VITALS: RESP 17
[2022-08-30 04:34] LABS: Glucose,Whole Blood 126 mg/dL (70-110)
[2022-08-30] MEDS: D5-0.45% NACL WITH KCL 20MEQ/L 1,000 ML IV SCH ×3 (04:38→16:43)
[2022-08-30] MEDS: SODIUM CHLORIDE 0.9% 1,000 ML IV SCH ×5 (04:38→17:36)
[2022-08-30 04:48] LABS: African American GFR (CKD) >90 (>60 ml/min/1.73 sqM); Anion Gap 8 mmol/L; Blood Urea Nitrogen 16 mg/dL (9-20); Calcium 8.4 mg/dL (8.4-10.2); Carbon Dioxide 22 mmol/L (22-30); Chloride 112 mmol/L (98-107); Glucose 113 mg/dL (74-99); Non-African American GFR(CKD) >90 (>60 ml/min/1.73 sqM); Phosphorus 2.7 mg/dL (2.5-4.5); Potassium 4.1 mmol/L (3.5-5.1); Sodium 142 mmol/L (137-145)
[2022-08-30] MEDS ORDERED: INSULIN DETEMIR (LEVEMIR) 100 UNIT/ML SYR SQ SCH (05:10)
[2022-08-30 05:37] LABS: Glucose,Whole Blood 173 mg/dL (70-110)
[2022-08-30 07:17] LABS: Glucose,Whole Blood 151 mg/dL (70-110)
[2022-08-30] MEDS: INSULIN ASPART (NovoLOG) 100 UNIT/ML VIAL SQ SCH ×7 (09:07→18:10)
[2022-08-30] MEDS: INSULIN REGULAR 100 UNIT in SODIUM CHLORIDE 0.9% 100 ML IV SCH ×2 (09:08→18:08)
[2022-08-30 12:03] LABS: Glucose,Whole Blood 134 mg/dL (70-110)
[2022-08-30 13:10] VITALS: BMI 20.6
[2022-08-30 15:42] LABS: Glucose,Whole Blood 118 mg/dL (70-110)
[2022-08-30 16:26] LABS: Glucose,Whole Blood 127 mg/dL (70-110)
[2022-08-30 16:59] VITALS: BP 134/95; PULSE 95; TEMP 98
--- NOTE | 2022-08-31 08:11 | DS ---
DISCHARGE SUMMARY CHIEF COMPLAINT: DKA. HISTORY OF PRESENT ILLNESS AND PHYSICAL EXAMINATION: Details of this man's history and physical can be found in the initial workup. LABORATORY STUDIES: While he was in the hospital, he had laboratory studies, details of which can be found in the laboratory section of his chart. COURSE IN THE HOSPITAL: After admission, he was placed on bedrest, started on intravenous fluids and DKA protocol. His gap closed, he is doing well. States he was stable on the morning of and it was felt that he could be discharged. He will go home on his usual activity, diet, and medications and follow up in the office in several days. FINAL DIAGNOSES: 1. Diabetic ketoacidosis. 2. Depression. 3. Type 1 diabetes mellitus. OPERATIONS: None. CONSULTATIONS: None. He is improved. MMBIANCA / ALDEN: [id number] /
--- NOTE | 2022-08-31 14:11 | PN ---
PROGRESS NOTE DATE OF SERVICE: 08/30/2022 CHIEF COMPLAINT: DKA. HISTORY OF PRESENT ILLNESS: This gentleman was to be discharged, but he has been having nausea and vomiting. His discharge will be canceled. If his vomiting stops, he will be able to leave another current discharge order. GRACE / ALDEN: [id number] /
--- NOTE | 2022-09-02 21:27 | HP ---
HISTORY AND PHYSICAL CHIEF COMPLAINT: DKA. HISTORY OF PRESENT ILLNESS: This is another admission for this 27-year-old white male who is in the hospital almost weekly now when he stops taking his insulin. He came in with DKA with a bicarb of 7, anion gap 31, blood sugar 635, and he was vomiting. REVIEW OF SYSTEMS: Otherwise unremarkable. He denies any focal neurologic problems, visual problems, chest pain, etc. Past medical history, family history, personal and social histories are all otherwise unchanged from his recent admitting and discharge summaries. PHYSICAL EXAMINATION: VITAL SIGNS: Blood pressure is 112/65 with a pulse of 115, respirations of 42. He is afebrile. GENERAL: He appeared to be pale, somewhat lethargic, dehydrated and vomiting. HEAD, EARS, EYES, NOSE, MOUTH AND THROAT: Normal except for dehydration. CHEST: Clear. CARDIAC: Normal. ABDOMEN: Soft, nontender. Bowel sounds present. EXTREMITIES: Normal. NEUROLOGICAL: Intact. DIAGNOSES: He is admitted to the hospital with diagnoses of: 1. Diabetic ketoacidosis. 2. Dehydration. 3. Uncontrolled type 1 insulin-dependent diabetes mellitus. 4. Peripheral neuropathy. 5. Depression. 6. Gastroparesis. PLAN: 1. Bedrest. 2. IV fluids. 3. IV insulin drip. 4. Antiemetics. MMODL / TRAMN: [id number] /
== END 2022-08-30 19:53 | disposition home or self-care (01) ==
LOC: EC 14:01 → 3SCARD 15:46 → INTOOBSV 15:46 → 3SCARD 19:52
PROVIDERS: ADMIT Family Medicine; ATTEND Family Medicine
DX: E10.10 Type 1 diabetes mellitus with ketoacidosis without coma (principal); E86.0 Dehydration; T38.3X6A Underdosing of insulin and oral hypoglycemic [antidiabetic] drugs, initial encounter; Z91.128 Patient's intentional underdosing of medication regimen for other reason; E10.65 Type 1 diabetes mellitus with hyperglycemia; E10.43 Type 1 diabetes mellitus with diabetic autonomic (poly)neuropathy; K31.84 Gastroparesis; E10.42 Type 1 diabetes mellitus with diabetic polyneuropathy; J45.909 Unspecified asthma, uncomplicated; L30.9 Dermatitis, unspecified; F32.A Depression, unspecified; F41.9 Anxiety disorder, unspecified; F17.200 Nicotine dependence, unspecified, uncomplicated; Z91.199 Patient's noncompliance with other medical treatment and regimen due to unspecified reason; Z79.4 Long term (current) use of insulin; Z79.899 Other long term (current) drug therapy; Z98.890 Other specified postprocedural states; Z82.3 Family history of stroke; Z82.49 Family history of ischemic heart disease and other diseases of the circulatory system; Z83.49 Family history of other endocrine, nutritional and metabolic diseases
CPT/HCPCS: 96376; 96361; 96374; 96375; 99285; 36415; 80051; 80053; 80048 ×2; 82565; 82009; 83605; 83690; 84100 ×2; 82947; 84520; 85025; 81003; G0378 ×2; J1200 ×2; J2765 ×2; J2405

== ENCOUNTER 2022-09-01 09:36 | Emergency (ER) | payer OTHER ==
[2022-09-01 09:40] VITALS: TEMP 98.8
[2022-09-01] MEDS ORDERED: SODIUM CHLORIDE 0.9% 2,000 ML IV STA (09:48)
[2022-09-01] MEDS ORDERED: FAMOTIDINE 20 MG/2 ML VIAL IV STA (09:49)
[2022-09-01] MEDS ORDERED: KETOROLAC 15 MG/ML 1 ML VIAL IVP STA (09:49)
[2022-09-01] MEDS ORDERED: diphenhydrAMINE 50 MG/ML 1 ML VIAL IVP STA (09:49)
[2022-09-01 10:27] LABS: VBG PH 7.39 (7.31-7.41)
[2022-09-01 10:37] LABS: ALT 35 U/L (4-49); AST 42 U/L (17-59); African American GFR (CKD) >90 (>60 ml/min/1.73 sqM); Albumin 4.3 g/dL (3.5-5.0); Alkaline Phosphatase 98 U/L (38-126); Anion Gap 13 mmol/L; Blood Urea Nitrogen 19 mg/dL (9-20); Calcium 9.2 mg/dL (8.4-10.2); Carbon Dioxide 30 mmol/L (22-30); Chloride 97 mmol/L (98-107); Glucose 498 mg/dL (74-99); Non-African American GFR(CKD) >90 (>60 ml/min/1.73 sqM); Potassium 4.5 mmol/L (3.5-5.1); Sodium 140 mmol/L (137-145); Total Bilirubin 0.6 mg/dL (0.2-1.3); Total Protein 7.1 g/dL (6.3-8.2)
[2022-09-01 10:44] LABS: Glucose,Whole Blood 387 mg/dL (70-110)
[2022-09-01 10:50] LABS: Basophils % (A) 0 %; Eosinophils # (A) 0.1 k/uL (0-0.7); Eosinophils % (A) 2 %; HCT 43.4 % (39.0-53.0); HGB 14.9 gm/dL (13.0-17.5); Lymphocytes # (A) 1.7 k/uL (1.0-4.8); Lymphocytes % (A) 22 %; MCH 31.3 pg (25.0-35.0); MCHC 34.3 g/dL (31.0-37.0); Monocytes # (A) 0.3 k/uL (0-1.0); Monocytes % (A) 4 %; Neutrophils # (A) 5.7 k/uL (1.3-7.7); Neutrophils % (A) 71 %; Platelet Count 259 k/uL (150-450); RBC 4.75 m/uL (4.30-5.90); RDW 13.3 % (11.5-15.5)
[2022-09-01 10:52] LABS: MCV 91.3 fL (80.0-100.0)
[2022-09-01] MEDS ORDERED: INSULIN REGULAR 100 UNIT/ML VIAL (IV) IV ONE (10:58)
--- NOTE | 2022-09-01 10:59 | ED ---
Nausea/Vomiting/Diarrhea HPI - General Chief complaint: Nausea/Vomiting/Diarrhea Stated complaint: stomach pain, vomiting Time Seen by Provider: 09/01/22 09:41 Source: patient, RN notes reviewed Mode of arrival: ambulatory Limitations: no limitations - History of Present Illness Initial comments: 27-year-old male presents emergency Department with chief complaint of nausea vomiting. Patient is well-known emergency from history of type 1 diabetes poorl y controlled. Patient has developed some gastroparesis symptoms. Patient states he's been vomiting since this morning. Patient did not check his blood sugars morning is not taking any insulin. Denies any fevers or chills no chest pain no palpitations no change in bowel habits. - Related Data Home Medications Medication Instructions Recorded Confirmed INSULIN ASPART (NovoLOG) [NovoLOG 10 unit SQ AC-TID 06/29/21 08/29/22 (formulary)] Gabapentin 600 mg PO TID 12/19/21 08/29/22 Insulin Detemir (Levemir) [Levemir] 25 unit SQ DAILY 04/11/22 08/29/22 Previous Rx's Medication Instructions Recorded buPROPion XL [Wellbutrin XL] 150 mg PO DAILY #10 tab 08/26/22 Mirtazapine [Remeron] 45 mg PO HS #10 tab 08/30/22 Allergies Allergy/AdvReac Type Severity Reaction Status Date / Time No Known Allergies Allergy Verified 09/01/22 09:39 Review of Systems ROS Statement: Those systems with pertinent positive or pertinent negative responses have been documented in the HPI. ROS Other: All systems not noted in ROS Statement are negative. Past Medical History Past Medical History: Asthma, Diabetes Mellitus, Neurologic Disorder, Skin Disorder Additional Past Medical History / Comment(s): IDDM type I, neuropathy bilateral feet, DKA, eczema. History of Any Multi-Drug Resistant Organisms: None Reported Past Surgical History: Adenoidectomy Additional Past Surgical History / Comment(s): 2002 Past Anesthesia/Blood Transfusion Reactions: No Reported Reaction Past Psychological History: Anxiety, Depression Smoking Status: Current every day smoker, Vaper Past Alcohol Use History: None Reported Past Drug Use History: Marijuana - Past Family History Mother Family Medical History: CVA/TIA Additional Family Medical History / Comment(s): TIA Father Family Medical History: Hyperlipidemia, Hypertension Additional Family Medical History / Comment(s): . General Exam Limitations: no limitations General appearance: alert, in no apparent distress Head exam: Present: atraumatic, normocephalic, normal inspection Eye exam: Present: normal appearance, PERRL, EOMI. Absent: scleral icterus, conjunctival injection, periorbital swelling ENT exam: Present: normal exam, normal oropharynx, mucous membranes moist Neck exam: Present: normal inspection, full ROM. Absent: tenderness, meningismus, lymphadenopathy Respiratory exam: Present: normal lung sounds bilaterally. Absent: respiratory distress, wheezes, rales, rhonchi, stridor Cardiovascular Exam: Present: regular rate, normal rhythm, normal heart sounds. Absent: systolic murmur, diastolic murmur, rubs, gallop, clicks GI/Abdominal exam: Present: soft, normal bowel sounds. Absent: distended, tenderness, guarding, rebound, rigid Back exam: Absent: CVA tenderness (R), CVA tenderness (L) Neurological exam: Present: alert Skin exam: Present: warm, dry, intact, normal color. Absent: rash Course Vital Signs 09/01/22 09/01/22 09/01/22 09:38 11:00 11:20 Temperature 98.8 F Pulse Rate 93 Respiratory 24 Rate Blood Pressure 142/100 145/105 127/95 O2 Sat by Pulse 99 Oximetry 09/01/22 11:51 Temperature Pulse Rate 103 H Respiratory 20 Rate Blood Pressure 113/89 O2 Sat by Pulse 98 Oximetry Medical Decision Making - Medical Decision Making Was pt. sent in by a medical professional or institution (, PA, COMBINE MECHANIC, urgent care, hospital, or custodial...) When possible be specific @ -No Did you speak to anyone other than the patient for history (EMS, parent, family, police, friend...)? What history was obtained from this source @ -No Did you review nursing and triage notes (agree or disagree)? Why? @ -I reviewed and agree with nursing and triage notes Were old charts reviewed (outside hosp., previous admission, EMS record, old EKG, old radiological studies, urgent care reports/EKG's, custodial records)? Report findings @ -Multiple old charts including labs EKG is reviewed Differential Diagnosis (chest pain, altered mental status, abdominal pain women, abdominal pain men, vaginal bleeding, weakness, fever, dyspnea, syncope, headache, dizziness, GI bleed, back pain, seizure, CVA, palpatations, mental health, musculoskeletal)? @ -[Differential Abdominal Pain Men: Appendicitis, cholecystitis, diverticulosis, ischemic bowel, pancreatitis, hepatitis, UTI, gastroenteritis, AAA, incarcerated hernia, bowel obstruction, constipation, inflammatory bowel, hepatitis, peptic ulcer disease, splenic infarction, perforated viscus, testicular torsion, this is not meant to be an all-inclusive list EKG interpreted by me (3pts min.). @ -None X-rays interpreted by me (1pt min.). @ -None done CT interpreted by me (1pt min.). @ -None done U/S interpreted by me (1pt. min.). @ -None done What testing was considered but not performed or refused? (CT, X-rays, U/S, labs)? Why? @ -None What meds were considered but not given or refused? Why? @ -None Did you discuss the management of the patient with other professionals (professionals i.e. , PA, COMBINE MECHANIC, lab, RT, psych nurse, bilingual social worker, corporation lawyer, teacher, chief juvenile probation officer, watch caser)? Give summary @ -No Was smoking cessation discussed for >3mins.? @ -No Was critical care preformed (if so, how long)? @ -No Were there social determinants of health that impacted care today? How? (Homelessness, low income, unemployed, alcoholism, drug addiction, transportation, low edu. Level, literacy, decrease access to med. care, group home, rehab)? @ -No Was there de-escalation of care discussed even if they declined (Discuss DNR or withdrawal of care, Hospice)? DNR status @ -No What co-morbidities impacted this encounter? (DM, HTN, Smoking, COPD, CAD, Cancer, CVA, ARF, Chemo, Hep., AIDS, mental health diagnosis, sleep apnea, morbid obesity)? @ -Uncontrolled diabetes Was patient admitted / discharged? Hospital course, mention meds given and route, prescriptions, significant lab abnormalities, going to OR and other pertinent info. @ -[Discharge patient has no significant acute findings other than hyperglycemia. Patient was well hydrated, given antiemetics. Patient most likely has underlying gastroparesis from uncontrolled diabetes. Patient was discharged in stable condition return parameters were discussed. Undiagnosed new problem with uncertain prognosis? @ -No Drug Therapy requiring intensive monitoring for toxicity (Heparin, Nitro, Insulin, Cardizem)? @ -No Were any procedures done? @ -No Diagnosis/symptom? @ -[Nausea vomiting Acute, or Chronic, or Acute on Chronic? @ -Acute Uncomplicated (without systemic symptoms) or Complicated (systemic symptoms)? @ -Uncomplicated Side effects of treatment? @ -No Exacerbation, Progression, or Severe Exacerbation? @ -No Poses a threat to life or bodily function? How? (Chest pain, USA, SD, pneumonia, PE, COPD, DKA, ARF, appy, cholecystitis, CVA, Diverticulitis, Homicidal, Suicidal, threat to staff... and all critical care pts) @ -No - Lab Data Result diagrams: 09/01/22 09:52 09/01/22 09:52 Lab Results 09/01/22 09/01/22 09/01/22 Range/Units 09:52 09:52 09:52 WBC 8.0 (3.8-10.6) k/uL RBC 4.75 (4.30-5.90) m/uL Hgb 14.9 (13.0-17.5) gm/dL Hct 43.4 (39.0-53.0) % MCV 91.3 D (80.0-100.0) fL MCH 31.3 (25.0-35.0) pg MCHC 34.3 (31.0-37.0) g/dL RDW 13.3 (11.5-15.5) % Plt Count 259 (150-450) k/uL MPV 7.0 Neutrophils % 71 % Lymphocytes % 22 % Monocytes % 4 % Eosinophils % 2 % Basophils % 0 % Neutrophils # 5.7 (1.3-7.7) k/uL Lymphocytes # 1.7 (1.0-4.8) k/uL Monocytes # 0.3 (0-1.0) k/uL Eosinophils # 0.1 (0-0.7) k/uL Basophils # 0.0 (0-0.2) k/uL VBG pH (7.31-7.41) VBG pCO2 (37-51) mmHg VBG HCO3 (24-28) mmol/L Sodium 140 (137-145) mmol/L Potassium 4.5 (3.5-5.1) mmol/L Chloride 97 L (98-107) mmol/L Carbon Dioxide 30 (22-30) mmol/L Anion Gap 13 mmol/L BUN 19 (9-20) mg/dL Creatinine 0.68 (0.66-1.25) mg/dL Est GFR (CKD-EPI)AfAm >90 (>60 ml/min/1.73 sqM) Est GFR (CKD-EPI)NonAf >90 (>60 ml/min/1.73 sqM) Glucose 498 H (74-99) mg/dL POC Glucose (mg/dL) (70-110) mg/dL POC Glu Hadoop Consultant ID Plasma Lactic Acid Len 1.2 (0.7-2.0) mmol/L Calcium 9.2 (8.4-10.2) mg/dL Total Bilirubin 0.6 (0.2-1.3) mg/dL AST 42 (17-59) U/L ALT 35 (4-49) U/L Alkaline Phosphatase 98 (38-126) U/L Total Protein 7.1 (6.3-8.2) g/dL Albumin 4.3 (3.5-5.0) g/dL 09/01/22 09/01/22 Range/Units 09:52 10:43 WBC (3.8-10.6) k/uL RBC (4.30-5.90) m/uL Hgb (13.0-17.5) gm/dL Hct (39.0-53.0) % MCV (80.0-100.0) fL MCH (25.0-35.0) pg MCHC (31.0-37.0) g/dL RDW (11.5-15.5) % Plt Count (150-450) k/uL MPV Neutrophils % % Lymphocytes % % Monocytes % % Eosinophils % % Basophils % % Neutrophils # (1.3-7.7) k/uL Lymphocytes # (1.0-4.8) k/uL Monocytes # (0-1.0) k/uL Eosinophils # (0-0.7) k/uL Basophils # (0-0.2) k/uL VBG pH 7.39 (7.31-7.41) VBG pCO2 53 H (37-51) mmHg VBG HCO3 31 H (24-28) mmol/L Sodium (137-145) mmol/L Potassium (3.5-5.1) mmol/L Chloride (98-107) mmol/L Carbon Dioxide (22-30) mmol/L Anion Gap mmol/L BUN (9-20) mg/dL Creatinine (0.66-1.25) mg/dL Est GFR (CKD-EPI)AfAm (>60 ml/min/1.73 sqM) Est GFR (CKD-EPI)NonAf (>60 ml/min/1.73 sqM) Glucose (74-99) mg/dL POC Glucose (mg/dL) 387 H (70-110) mg/dL POC Glu Hadoop Consultant ID Srinath Franklin Plasma Lactic Acid Len (0.7-2.0) mmol/L Calcium (8.4-10.2) mg/dL Total Bilirubin (0.2-1.3) mg/dL AST (17-59) U/L ALT (4-49) U/L Alkaline Phosphatase (38-126) U/L Total Protein (6.3-8.2) g/dL Albumin (3.5-5.0) g/dL Disposition Clinical Impression: Nausea & vomiting, Gastroparesis, Abdominal pain Disposition: HOME SELF-CARE Condition: Stable Instructions (If sedation given, give patient instructions): Acute Nausea and Vomiting (ED) Additional Instructions: Please return to the Emergency Department if symptoms worsen or any other concerns. Is patient prescribed a controlled substance at d/c from ED?: No Referrals: Brown Valenzuela MD [Primary Care Provider] - 1-2 days Time of Disposition: 11:26
[2022-09-01] MEDS ORDERED: METOCLOPRAMIDE 5 MG/ML 2 ML VIAL IVP STA (11:25)
[2022-09-01] MEDS ORDERED: MAG HYDROX/AL HYDROX/SIMETH 30 ML, HYOSCYAMINE ELIXIR 10 ML, LIDOCAINE VISCOUS 2% 10 ML PO STA ×3 (11:25)
[2022-09-01 12:35] VITALS: BP 121/94; PULSE 97; RESP 16
== END 2022-09-01 12:40 | disposition home or self-care (01) ==
LOC: EC 09:36
DX: E11.43 Type 2 diabetes mellitus with diabetic autonomic (poly)neuropathy (principal); K31.84 Gastroparesis; R11.2 Nausea with vomiting, unspecified; R10.9 Unspecified abdominal pain; J45.909 Unspecified asthma, uncomplicated; F41.9 Anxiety disorder, unspecified; F32.A Depression, unspecified; F12.90 Cannabis use, unspecified, uncomplicated; F17.290 Nicotine dependence, other tobacco product, uncomplicated; Z79.4 Long term (current) use of insulin
CPT/HCPCS: 36415; 80053; 82803; 83605; 85025; 99284; 96374; 96375 ×4; 96361 ×2; J1200; J2765; J1885; J1790

== ENCOUNTER 2022-09-03 06:33 | Inpatient (IN) | payer OTHER ==
[2022-09-03] MEDS ORDERED: ONDANSETRON 4 MG/2 ML VIAL IVP STA (06:39)
[2022-09-03] MEDS ORDERED: SODIUM CHLORIDE 0.9% 1,000 ML IV ONE (06:39)
[2022-09-03 07:02] LABS: Glucose,Whole Blood >600 mg/dL (70-110)
[2022-09-03 07:05] LABS: Appearance,Urine Clear (Clear); Bilirubin,Urine Negative (Negative); Blood,Urine Negative (Negative); Color,Urine Colorless; Glucose,Urine (UA) 4+ (Negative); Leukocyte Esterase,Urine Negative (Negative); Nitrite,Urine Negative (Negative); Protein,Urine Negative (Negative); Specific Gravity,Urine 1.023 (1.001-1.035); Urobilinogen,Urine <2.0 mg/dL (<2.0)
[2022-09-03 07:09] LABS: Ketones,Urine 4+ (Negative)
[2022-09-03 07:12] LABS: Basophils # (A) 0.1 k/uL (0-0.2); Basophils % (A) 0 %; Eosinophils # (A) 0.1 k/uL (0-0.7); Eosinophils % (A) 0 %; HGB 15.4 gm/dL (13.0-17.5); Lymphocytes # (A) 1.8 k/uL (1.0-4.8); Lymphocytes % (A) 8 %; MCH 32.1 pg (25.0-35.0); MCHC 32.7 g/dL (31.0-37.0); Mean Platelet Volume 8.5; Monocytes # (A) 0.6 k/uL (0-1.0); Monocytes % (A) 3 %; Neutrophils # (A) 20.7 k/uL (1.3-7.7); Neutrophils % (A) 88 %; Platelet Count 405 k/uL (150-450); RBC 4.79 m/uL (4.30-5.90); RDW 13.2 % (11.5-15.5); WBC 23.4 k/uL (3.8-10.6)
[2022-09-03 07:13] LABS: VBG PH 7.12 (7.31-7.41)
[2022-09-03 07:16] LABS: ALT 29 U/L (4-49); AST 20 U/L (17-59); African American GFR (CKD) >90 (>60 ml/min/1.73 sqM); Alkaline Phosphatase 126 U/L (38-126); Blood Urea Nitrogen 18 mg/dL (9-20); Calcium 9.9 mg/dL (8.4-10.2); Chloride 96 mmol/L (98-107); Magnesium 2.4 mg/dL (1.6-2.3); Non-African American GFR(CKD) 82 (>60 ml/min/1.73 sqM); Potassium 5.8 mmol/L (3.5-5.1); Sodium 139 mmol/L (137-145); Total Bilirubin 0.8 mg/dL (0.2-1.3); Total Protein 7.6 g/dL (6.3-8.2)
[2022-09-03 07:25] LABS: MCV 98.1 fL (80.0-100.0)
[2022-09-03 07:26] LABS: INR 0.9 (<1.2); Prothrombin Time 9.9 sec (9.0-12.0)
[2022-09-03 07:52] LABS: Carbon Dioxide <5 mmol/L (22-30); Glucose 734 mg/dL (74-99)
[2022-09-03] MEDS ORDERED: SODIUM CHLORIDE 0.9% 1,000 ML IV STA (07:53)
[2022-09-03] MEDS ORDERED: Potassium Replacement Protocol 1 EACH MISC MISCELLANE PRN (07:56)
[2022-09-03] MEDS ORDERED: Magnesium Replacement Protocol 1 EACH MISC MISCELLANE PRN (07:56)
[2022-09-03] MEDS ORDERED: INSULIN REGULAR BOLUS (FROM DRIP BAG) IV ONE (07:56)
[2022-09-03] MEDS ORDERED: DEXTROSE 50% SYRINGE 50 ML IVP PRN ×2 (07:56)
[2022-09-03] MEDS ORDERED: SODIUM CHLORIDE 0.9% 1,000 ML IV SCH (08:00)
[2022-09-03] MEDS ORDERED: METOCLOPRAMIDE 5 MG/ML 2 ML VIAL IVP STA (08:08)
--- NOTE | 2022-09-03 08:13 | ED ---
General Adult HPI - General Chief complaint: Nausea/Vomiting/Diarrhea Stated complaint: Weakness Time Seen by Provider: 09/03/22 06:34 Source: patient, RN notes reviewed, old records reviewed Mode of arrival: EMS Limitations: no limitations - History of Present Illness Initial comments: Patient is a 27-year-old male who presents emergency Department with nausea, vomiting, and concern for DKA. Is a frequent visitor to emergency department for similar complaints. Has been having symptoms for multiple days per patient. Came via EMS. Blood sugar greater than 600. He states he feels generalized weakness as well as nausea which is typical for his presentations. Denies any fevers or cough. Denies any urinary complaints. Endorses mild epigastric abdominal discomfort but primarily complains of weakness, nausea, vomiting. Sugars have been high lately. Patient has kusmaul respirations. Presents for further evaluation at this time. - Related Data Home Medications Medication Instructions Recorded Confirmed INSULIN ASPART (NovoLOG) [NovoLOG 10 unit SQ AC-TID 06/29/21 09/03/22 (formulary)] Gabapentin 600 mg PO TID 12/19/21 09/03/22 Insulin Detemir (Levemir) [Levemir] 25 unit SQ DAILY 04/11/22 09/03/22 Mirtazapine [Remeron] 45 mg PO HS 09/03/22 09/03/22 Previous Rx's Medication Instructions Recorded buPROPion XL [Wellbutrin XL] 150 mg PO DAILY #10 tab 08/26/22 Allergies Allergy/AdvReac Type Severity Reaction Status Date / Time No Known Allergies Allergy Verified 09/03/22 08:08 Review of Systems ROS Statement: Those systems with pertinent positive or pertinent negative responses have been documented in the HPI. Review of Systems: CONST: Denies fever EYES: Denies blurry vision ENT: Denies nasal congestion C/V: Denies Chest pain RESP: Denies shortness of breath GI: Endorses nausea and vomiting : Denies dysuria SKIN: Denies rash. MSK: Denies joint pain. NEURO: Denies headache ROS Other: All systems not noted in ROS Statement are negative. Past Medical History Past Medical History: Asthma, Diabetes Mellitus, Neurologic Disorder, Skin Disorder Additional Past Medical History / Comment(s): IDDM type I, neuropathy bilateral feet, DKA, eczema. History of Any Multi-Drug Resistant Organisms: None Reported Past Surgical History: Adenoidectomy Additional Past Surgical History / Comment(s): 2002 Past Anesthesia/Blood Transfusion Reactions: No Reported Reaction Past Psychological History: Anxiety, Depression Smoking Status: Current every day smoker, Vaper Past Alcohol Use History: None Reported Past Drug Use History: Marijuana - Past Family History Mother Family Medical History: CVA/TIA Additional Family Medical History / Comment(s): TIA Father Family Medical History: Hyperlipidemia, Hypertension Additional Family Medical History / Comment(s): . General Exam - General Exam Comments Initial Comments: General: Patient has increased work of breathing with Kusmaul respirations. Appears dehydrated. HEAD: Normal with no signs of head trauma. EYES: PERRLA, EOMI, conjunctiva normal, no discharge. ENT: Hearing grossly intact. Dry mucous membranes. RESPIRATORY: Clear breath sounds bilaterally. No wheezes, rales, or rhonchi. His work of breathing likely secondary to DKA, Kusmaul respirations C/V: Tachycardia with a regular rhythm. S1 and S2 auscultated. Peripheral pulses 2+ and intact throughout. ABD: Abdomen soft, nondistended. Mild tenderness to palpation epigastric region. No guarding. No rebound tenderness. No peritoneal signs. EXT: Normal range of motion, no obvious deformity SKIN: No rashes or lesions observed on exposed skin. NEURO: Alert and oriented 4. Limitations: no limitations Course Vital Signs 09/03/22 09/03/22 09/03/22 06:37 07:30 09:14 Temperature 98.4 F Pulse Rate 129 H 129 H 124 H Respiratory 22 24 24 Rate Blood Pressure 137/95 122/82 97/44 O2 Sat by Pulse 99 100 97 Oximetry 09/03/22 11:16 Temperature Pulse Rate 120 H Respiratory 20 Rate Blood Pressure 100/58 O2 Sat by Pulse 100 Oximetry Procedures - Van Protocol (Time Out) Nurse: Zafar Malone Medical Decision Making - Medical Decision Making Was pt. sent in by a medical professional or institution (, JAS, FABRICATION SPECIALIST, urgent care, hospital, or detention...) When possible be specific @ -No Did you speak to anyone other than the patient for history (EMS, parent, family, police, friend...)? What history was obtained from this source @ -No Did you review nursing and triage notes (agree or disagree)? Why? @ -I reviewed and agree with nursing and triage notes Were old charts reviewed (outside hosp., previous admission, EMS record, old EKG, old radiological studies, urgent care reports/EKG's, detention records)? Report findings @ -Old charts reviewed from multiple prior visits. Most recent visit was on September 01 which was 2 days ago, and that time patient was hyperglycemic but not in DKA. Differential Diagnosis (chest pain, altered mental status, abdominal pain women, abdominal pain men, vaginal bleeding, weakness, fever, dyspnea, syncope, headache, dizziness, GI bleed, back pain, seizure, CVA, palpatations, mental health, musculoskeletal)? @ -Differential Abdominal Pain Men: DKA, Appendicitis, cholecystitis, diverticulosis, ischemic bowel, pancreatitis, hepatitis, UTI, gastroenteritis, AAA, incarcerated hernia, bowel obstruction, constipation, inflammatory bowel, hepatitis, peptic ulcer disease, splenic infarction, perforated viscus, testicular torsion, this is not meant to be an all-inclusive list EKG interpreted by me (3pts min.). @ -As above X-rays interpreted by me (1pt min.). @ -Patient refused the chest x-ray CT interpreted by me (1pt min.). @ -None done U/S interpreted by me (1pt. min.). @ -None done What testing was considered but not performed or refused? (CT, X-rays, U/S, labs)? Why? @ -None What meds were considered but not given or refused? Why? @ -None Did you discuss the management of the patient with other professionals (professionals i.e. , PA, FABRICATION SPECIALIST, lab, RT, psych nurse, social services, climate change analyst, t eacher, credit risk officer, case reviewer)? Give summary @ -Discussed with Dr. Gonzalez of ICU who will evaluate the patient. Discussed with Dr. Valenzuela who accepted the patient. Was smoking cessation discussed for >3mins.? @ -No Was critical care preformed (if so, how long)? @ -Yes, 35 minutes Were there social determinants of health that impacted care today? How? (Homelessness, low income, unemployed, alcoholism, drug addiction, transportation, low edu. Level, literacy, decrease access to med. care, skilled nursing, rehab)? @ -No Was there de-escalation of care discussed even if they declined (Discuss DNR or withdrawal of care, Hospice)? DNR status @ -No What co-morbidities impacted this encounter? (DM, HTN, Smoking, COPD, CAD, Cancer, CVA, ARF, Chemo, Hep., AIDS, mental health diagnosis, sleep apnea, morbid obesity)? @ -History of insulin-dependent type 1 diabetes Was patient admitted / discharged? Hospital course, mention meds given and route, prescriptions, significant lab abnormalities, going to OR and other pertinent info. @ -Based on the patient's presentation and physical exam, I'm concerned for DKA and the patient. Patient's sugar is over 600. DKA labs were ordered. He was initially given 2 L bolus of normal saline. Vital signs remarkable for tachycardia, likely secondary to severe dehydration from DKA. Patient was symptomatically treated with IV Zofran. He was in agreement with this plan. Patient's labs returned remarkable for leukocytosis of 23. Patient is hyperkalemic to 5.8. Has an anion gap metabolic acidosis with a Over 30 and a VBG pH of 7.12. Lactic acid is elevated to 6.7 likely secondary to dehydration. Patient's blood sugar 734. Urine shows 4+ glucose and ketones. Acetone positive. I do believe that the leukocytosis is likely hemoconcentration and the lactic acid is also from dehydration. I have no obvious source of infection at this time, and therefore we will hold antibiotics but I will discuss the case with Dr. Gonzalez of ICU. Patient's EKG does show findings concerning for hyperkalemia with peaked T waves and therefore is a patient is already receiving insulin we will administer a amp of bicarb as well as calcium gluconate and a breathing treatment with albuterol to shift the potassium. Hyperkalemia should correct itself as the patient's metabolic acidosis from his diabetic ketoacidosis is corrected. I discussed the case with Dr. Gonzalez at 8:15 AM for evaluation for ICU admission. Patient will be evaluated by their team as they're currently rounding. I spoke with Dr. Valenzuela the patient's admitting physician who accepted the patient. I did the patient and he was in agreement this plan. Patient was accepted the ICU. Patient was admitted in serious condition. Undiagnosed new problem with uncertain prognosis? @ -No Drug Therapy requiring intensive monitoring for toxicity (Heparin, Nitro, Insulin, Cardizem)? @ -No Were any procedures done? @ -No Diagnosis/symptom? @ -DKA in the setting of type 1 insulin-dependent diabetes poorly controlled, anion gap metabolic acidosis Acute, or Chronic, or Acute on Chronic? @ -Acute on chronic Uncomplicated (without systemic symptoms) or Complicated (systemic symptoms)? @ -Complicated Side effects of treatment? @ -No Exacerbation, Progression, or Severe Exacerbation? @ -No Poses a threat to life or bodily function? How? (Chest pain, [place], SD, pneumonia, PE, COPD, DKA, ARF, appy, cholecystitis, CVA, Diverticulitis, Homicidal, Suicidal, threat to staff... and all critical care pts) @ -Yes Diagnosis/symptom? @ -Hyperkalemia with EKG changes Acute, or Chronic, or Acute on Chronic? @ -Acute Uncomplicated (without systemic symptoms) or Complicated (systemic symptoms)? @ -Complicated Side effects of treatment? @ -none Exacerbation, Progression, or Severe Exacerbation] @ -no Poses a threat to life or bodily function? @ -If untreated can result in morbidity and mortality such as arrhythmias. Diagnosis/symptom? @ -Dehydration Acute, or Chronic, or Acute on Chronic? @ -Acute Uncomplicated (without systemic symptoms) or Complicated (systemic symptoms)? @ -Complicated Side effects of treatment? @ -none Exacerbation, Progression, or Severe Exacerbation] @ -no Poses a threat to life or bodily function? @ -Yes Diagnosis/symptom? @ -Lactic acidosis and leukocytosis, likely secondary to DKA and dehydration with hemoconcentration Acute, or Chronic, or Acute on Chronic? @ -Acute Uncomplicated (without systemic symptoms) or Complicated (systemic symptoms)? @ -Complicated Side effects of treatment? @ -none Exacerbation, Progression, or Severe Exacerbation] @ -no Poses a threat to life or bodily function? @ -Yes - Lab Data Result diagrams: 09/03/22 06:43 09/03/22 11:48 Lab Results 09/03/22 09/03/22 09/03/22 Range/Units 06:43 06:43 06:43 WBC 23.4 H (3.8-10.6) k/uL RBC 4.79 (4.30-5.90) m/uL Hgb 15.4 (13.0-17.5) gm/dL Hct 47.0 (39.0-53.0) % MCV 98.1 D (80.0-100.0) fL MCH 32.1 (25.0-35.0) pg MCHC 32.7 (31.0-37.0) g/dL RDW 13.2 (11.5-15.5) % Plt Count 405 (150-450) k/uL MPV 8.5 Neutrophils % 88 % Lymphocytes % 8 % Monocytes % 3 % Eosinophils % 0 % Basophils % 0 % Neutrophils # 20.7 H (1.3-7.7) k/uL Lymphocytes # 1.8 (1.0-4.8) k/uL Monocytes # 0.6 (0-1.0) k/uL Eosinophils # 0.1 (0-0.7) k/uL Basophils # 0.1 (0-0.2) k/uL PT 9.9 (9.0-12.0) sec INR 0.9 (<1.2) APTT 21.0 L (22.0-30.0) sec VBG pH (7.31-7.41) VBG pCO2 (37-51) mmHg VBG HCO3 (24-28) mmol/L Sodium 139 (137-145) mmol/L Potassium 5.8 H (3.5-5.1) mmol/L Chloride 96 L (98-107) mmol/L Carbon Dioxide <5 L* (22-30) mmol/L Anion Gap mmol/L BUN 18 (9-20) mg/dL Creatinine 1.22 (0.66-1.25) mg/dL Est GFR (CKD-EPI)AfAm >90 (>60 ml/min/1.73 sqM) Est GFR (CKD-EPI)NonAf 82 (>60 ml/min/1.73 sqM) Glucose 734 H* (74-99) mg/dL POC Glucose (mg/dL) (70-110) mg/dL POC Glu Administrative Accountant ID Lactic Ac Sepsis Rflx Plasma Lactic Acid Len (0.7-2.0) mmol/L Calcium 9.9 (8.4-10.2) mg/dL Magnesium 2.4 H (1.6-2.3) mg/dL Total Bilirubin 0.8 (0.2-1.3) mg/dL AST 20 (17-59) U/L ALT 29 (4-49) U/L Alkaline Phosphatase 126 (38-126) U/L Total Protein 7.6 (6.3-8.2) g/dL Albumin 5.0 (3.5-5.0) g/dL Lipase (23-300) U/L Urine Color Urine Appearance (Clear) Urine pH (5.0-8.0) Ur Specific [place] (1.001-1.035) Urine Protein (Negative) Urine Glucose (UA) (Negative) Urine Ketones (Negative) Urine Blood (Negative) Urine Nitrite (Negative) Urine Bilirubin (Negative) Urine Urobilinogen (<2.0) mg/dL Ur Leukocyte Esterase (Negative) Urine Opiates Screen (NotDetected) Ur Oxycodone Screen (NotDetected) Urine Methadone Screen (NotDetected) Ur Propoxyphene Screen (NotDetected) Ur Barbiturates Screen (NotDetected) U Tricyclic Antidepress (NotDetected) Ur Phencyclidine Scrn (NotDetected) Ur Amphetamines Screen (NotDetected) U Methamphetamines Scrn (NotDetected) U Benzodiazepines Scrn (NotDetected) Urine Cocaine Screen (NotDetected) U Marijuana (THC) Screen (NotDetected) Acetone, Qual Positive (Negative) Influenza Type A (PCR) (Not Detectd) Influenza Type B (PCR) (Not Detectd) RSV (PCR) (Not Detectd) SARS-CoV-2 (PCR) (Not Detectd) 09/03/22 09/03/22 09/03/22 Range/Units 06:43 06:43 06:45 WBC (3.8-10.6) k/uL RBC (4.30-5.90) m/uL Hgb (13.0-17.5) gm/dL Hct (39.0-53.0) % MCV (80.0-100.0) fL MCH (25.0-35.0) pg MCHC (31.0-37.0) g/dL RDW (11.5-15.5) % Plt Count (150-450) k/uL MPV Neutrophils % % Lymphocytes % % Monocytes % % Eosinophils % % Basophils % % Neutrophils # (1.3-7.7) k/uL Lymphocytes # (1.0-4.8) k/uL Monocytes # (0-1.0) k/uL Eosinophils # (0-0.7) k/uL Basophils # (0-0.2) k/uL PT (9.0-12.0) sec INR (<1.2) APTT (22.0-30.0) sec VBG pH (7.31-7.41) VBG pCO2 (37-51) mmHg VBG HCO3 (24-28) mmol/L Sodium (137-145) mmol/L Potassium (3.5-5.1) mmol/L Chloride (98-107) mmol/L Carbon Dioxide (22-30) mmol/L Anion Gap mmol/L BUN (9-20) mg/dL Creatinine (0.66-1.25) mg/dL Est GFR (CKD-EPI)AfAm (>60 ml/min/1.73 sqM) Est GFR (CKD-EPI)NonAf (>60 ml/min/1.73 sqM) Glucose (74-99) mg/dL POC Glucose (mg/dL) (70-110) mg/dL POC Glu Administrative Accountant ID Lactic Ac Sepsis Rflx Plasma Lactic Acid Len 6.7 H* (0.7-2.0) mmol/L Calcium (8.4-10.2) mg/dL Magnesium (1.6-2.3) mg/dL Total Bilirubin (0.2-1.3) mg/dL AST (17-59) U/L ALT (4-49) U/L Alkaline Phosphatase (38-126) U/L Total Protein (6.3-8.2) g/dL Albumin (3.5-5.0) g/dL Lipase 41 (23-300) U/L Urine Color Colorless Urine Appearance Clear (Clear) Urine pH 5.0 (5.0-8.0) Ur Specific [place] 1.023 (1.001-1.035) Urine Protein Negative (Negative) Urine Glucose (UA) 4+ H (Negative) Urine Ketones 4+ H (Negative) Urine Blood Negative (Negative) Urine Nitrite Negative (Negative) Urine Bilirubin Negative (Negative) Urine Urobilinogen <2.0 (<2.0) mg/dL Ur Leukocyte Esterase Negative (Negative) Urine Opiates Screen (NotDetected) Ur Oxycodone Screen (NotDetected) Urine Methadone Screen (NotDetected) Ur Propoxyphene Screen (NotDetected) Ur Barbiturates Screen (NotDetected) U Tricyclic Antidepress (NotDetected) Ur Phencyclidine Scrn (NotDetected) Ur Amphetamines Screen (NotDetected) U Methamphetamines Scrn (NotDetected) U Benzodiazepines Scrn (NotDetected) Urine Cocaine Screen (NotDetected) U Marijuana (THC) Screen (NotDetected) Acetone, Qual (Negative) Influenza Type A (PCR) (Not Detectd) Influenza Type B (PCR) (Not Detectd) RSV (PCR) (Not Detectd) SARS-CoV-2 (PCR) (Not Detectd) 09/03/22 09/03/22 09/03/22 Range/Units 06:47 07:00 07:50 WBC (3.8-10.6) k/uL RBC (4.30-5.90) m/uL Hgb (13.0-17.5) gm/dL Hct (39.0-53.0) % MCV (80.0-100.0) fL MCH (25.0-35.0) pg MCHC (31.0-37.0) g/dL RDW (11.5-15.5) % Plt Count (150-450) k/uL MPV Neutrophils % % Lymphocytes % % Monocytes % % Eosinophils % % Basophils % % Neutrophils # (1.3-7.7) k/uL Lymphocytes # (1.0-4.8) k/uL Monocytes # (0-1.0) k/uL Eosinophils # (0-0.7) k/uL Basophils # (0-0.2) k/uL PT (9.0-12.0) sec INR (<1.2) APTT (22.0-30.0) sec VBG pH 7.12 L* (7.31-7.41) VBG pCO2 22 L (37-51) mmHg VBG HCO3 7 L* (24-28) mmol/L Sodium (137-145) mmol/L Potassium (3.5-5.1) mmol/L Chloride (98-107) mmol/L Carbon Dioxide (22-30) mmol/L Anion Gap mmol/L BUN (9-20) mg/dL Creatinine (0.66-1.25) mg/dL Est GFR (CKD-EPI)AfAm (>60 ml/min/1.73 sqM) Est GFR (CKD-EPI)NonAf (>60 ml/min/1.73 sqM) Glucose (74-99) mg/dL POC Glucose (mg/dL) >600 H (70-110) mg/dL POC Glu Administrative Accountant ID Pao Weeks Lactic Ac Sepsis Rflx Y Plasma Lactic Acid Len (0.7-2.0) mmol/L Calcium (8.4-10.2) mg/dL Magnesium (1.6-2.3) mg/dL Total Bilirubin (0.2-1.3) mg/dL AST (17-59) U/L ALT (4-49) U/L Alkaline Phosphatase (38-126) U/L Total Protein (6.3-8.2) g/dL Albumin (3.5-5.0) g/dL Lipase (23-300) U/L Urine Color Urine Appearance (Clear) Urine pH (5.0-8.0) Ur Specific [place] (1.001-1.035) Urine Protein (Negative) Urine Glucose (UA) (Negative) Urine Ketones (Negative) Urine Blood (Negative) Urine Nitrite (Negative) Urine Bilirubin (Negative) Urine Urobilinogen (<2.0) mg/dL Ur Leukocyte Esterase (Negative) Urine Opiates Screen (NotDetected) Ur Oxycodone Screen (NotDetected) Urine Methadone Screen (NotDetected) Ur Propoxyphene Screen (NotDetected) Ur Barbiturates Screen (NotDetected) U Tricyclic Antidepress (NotDetected) Ur Phencyclidine Scrn (NotDetected) Ur Amphetamines Screen (NotDetected) U Methamphetamines Scrn (NotDetected) U Benzodiazepines Scrn (NotDetected) Urine Cocaine Screen (NotDetected) U Marijuana (THC) Screen (NotDetected) Acetone, Qual (Negative) Influenza Type A (PCR) (Not Detectd) Influenza Type B (PCR) (Not Detectd) RSV (PCR) (Not Detectd) SARS-CoV-2 (PCR) (Not Detectd) 09/03/22 09/03/22 09/03/22 Range/Units 08:00 08:00 08:36 WBC (3.8-10.6) k/uL RBC (4.30-5.90) m/uL Hgb (13.0-17.5) gm/dL Hct (39.0-53.0) % MCV (80.0-100.0) fL MCH (25.0-35.0) pg MCHC (31.0-37.0) g/dL RDW (11.5-15.5) % Plt Count (150-450) k/uL MPV Neutrophils % % Lymphocytes % % Monocytes % % Eosinophils % % Basophils % % Neutrophils # (1.3-7.7) k/uL Lymphocytes # (1.0-4.8) k/uL Monocytes # (0-1.0) k/uL Eosinophils # (0-0.7) k/uL Basophils # (0-0.2) k/uL PT (9.0-12.0) sec INR (<1.2) APTT (22.0-30.0) sec VBG pH (7.31-7.41) VBG pCO2 (37-51) mmHg VBG HCO3 (24-28) mmol/L Sodium (137-145) mmol/L Potassium (3.5-5.1) mmol/L Chloride (98-107) mmol/L Carbon Dioxide (22-30) mmol/L Anion Gap mmol/L BUN (9-20) mg/dL Creatinine (0.66-1.25) mg/dL Est GFR (CKD-EPI)AfAm (>60 ml/min/1.73 sqM) Est GFR (CKD-EPI)NonAf (>60 ml/min/1.73 sqM) Glucose (74-99) mg/dL POC Glucose (mg/dL) 546 H (70-110) mg/dL POC Glu Administrative Accountant ID Zafar Malone Lactic Ac Sepsis Rflx Plasma Lactic Acid Len (0.7-2.0) mmol/L Calcium (8.4-10.2) mg/dL Magnesium (1.6-2.3) mg/dL Total Bilirubin (0.2-1.3) mg/dL AST (17-59) U/L ALT (4-49) U/L Alkaline Phosphatase (38-126) U/L Total Protein (6.3-8.2) g/dL Albumin (3.5-5.0) g/dL Lipase (23-300) U/L Urine Color Urine Appearance (Clear) Urine pH (5.0-8.0) Ur Specific [place] (1.001-1.035) Urine Protein (Negative) Urine Glucose (UA) (Negative) Urine Ketones (Negative) Urine Blood (Negative) Urine Nitrite (Negative) Urine Bilirubin (Negative) Urine Urobilinogen (<2.0) mg/dL Ur Leukocyte Esterase (Negative) Urine Opiates Screen Not Detected (NotDetected) Ur Oxycodone Screen Not Detected (NotDetected) Urine Methadone Screen Not Detected (NotDetected) Ur Propoxyphene Screen Not Detected (NotDetected) Ur Barbiturates Screen Not Detected (NotDetected) U Tricyclic Antidepress Not Detected (NotDetected) Ur Phencyclidine Scrn Not Detected (NotDetected) Ur Amphetamines Screen Not Detected (NotDetected) U Methamphetamines Scrn Not Detected (NotDetected) U Benzodiazepines Scrn Not Detected (NotDetected) Urine Cocaine Screen Not Detected (NotDetected) U Marijuana (THC) Screen Not Detected (NotDetected) Acetone, Qual (Negative) Influenza Type A (PCR) Not Detected (Not Detectd) Influenza Type B (PCR) Not Detected (Not Detectd) RSV (PCR) Not Detected (Not Detectd) SARS-CoV-2 (PCR) Not Detected (Not Detectd) 09/03/22 Range/Units 09:36 WBC (3.8-10.6) k/uL RBC (4.30-5.90) m/uL Hgb (13.0-17.5) gm/dL Hct (39.0-53.0) % MCV (80.0-100.0) fL MCH (25.0-35.0) pg MCHC (31.0-37.0) g/dL RDW (11.5-15.5) % Plt Count (150-450) k/uL MPV Neutrophils % % Lymphocytes % % Monocytes % % Eosinophils % % Basophils % % Neutrophils # (1.3-7.7) k/uL Lymphocytes # (1.0-4.8) k/uL Monocytes # (0-1.0) k/uL Eosinophils # (0-0.7) k/uL Basophils # (0-0.2) k/uL PT (9.0-12.0) sec INR (<1.2) APTT (22.0-30.0) sec VBG pH (7.31-7.41) VBG pCO2 (37-51) mmHg VBG HCO3 (24-28) mmol/L Sodium (137-145) mmol/L Potassium (3.5-5.1) mmol/L Chloride (98-107) mmol/L Carbon Dioxide (22-30) mmol/L Anion Gap mmol/L BUN (9-20) mg/dL Creatinine (0.66-1.25) mg/dL Est GFR (CKD-EPI)AfAm (>60 ml/min/1.73 sqM) Est GFR (CKD-EPI)NonAf (>60 ml/min/1.73 sqM) Glucose (74-99) mg/dL POC Glucose (mg/dL) 485 H (70-110) mg/dL POC Glu Administrative Accountant ID Zafar Malone Lactic Ac Sepsis Rflx Plasma Lactic Acid Len (0.7-2.0) mmol/L Calcium (8.4-10.2) mg/dL Magnesium (1.6-2.3) mg/dL Total Bilirubin (0.2-1.3) mg/dL AST (17-59) U/L ALT (4-49) U/L Alkaline Phosphatase (38-126) U/L Total Protein (6.3-8.2) g/dL Albumin (3.5-5.0) g/dL Lipase (23-300) U/L Urine Color Urine Appearance (Clear) Urine pH (5.0-8.0) Ur Specific [place] (1.001-1.035) Urine Protein (Negative) Urine Glucose (UA) (Negative) Urine Ketones (Negative) Urine Blood (Negative) Urine Nitrite (Negative) Urine Bilirubin (Negative) Urine Urobilinogen (<2.0) mg/dL Ur Leukocyte Esterase (Negative) Urine Opiates Screen (NotDetected) Ur Oxycodone Screen (NotDetected) Urine Methadone Screen (NotDetected) Ur Propoxyphene Screen (NotDetected) Ur Barbiturates Screen (NotDetected) U Tricyclic Antidepress (NotDetected) Ur Phencyclidine Scrn (NotDetected) Ur Amphetamines Screen (NotDetected) U Methamphetamines Scrn (NotDetected) U Benzodiazepines Scrn (NotDetected) Urine Cocaine Screen (NotDetected) U Marijuana (THC) Screen (NotDetected) Acetone, Qual (Negative) Influenza Type A (PCR) (Not Detectd) Influenza Type B (PCR) (Not Detectd) RSV (PCR) (Not Detectd) SARS-CoV-2 (PCR) (Not Detectd) - EKG Data -: EKG Interpreted by Me EKG Comments: 12-lead Electrocardiogram Interpretation Note EKG was reviewed and interpreted by myself. 12-lead ECG performed at 0825 is in terpreted by me as revealing sinus tachycardia with peaked T waves concerning for hyperkalemia at a rate of 126 beats per minute. [place] is rightward deviated. CT interval is 172 ms, QRS duration is 97 ms, QTc is 390 ms.. There were no ST or T wave abnormalities to suggest myocardial ischemia or injury. R wave progression across the precordium was delayed. By my interpretation this EKG is non-diagnostic for acute ischemia. This EKG does show changes consistent with hyperkalemia Critical Care Time Critical Care Time: Yes Total Critical Care Time: 35 Critical Care Time: Upon my evaluation, this patient had a high probability of imminent or life- threatening deterioration due to DKA, anion gap metabolic acidosis, dehydration, sinus tachycardia, lactic acidosis, which required my direct attention, intervention, and personal management. I have personally provided 35 minutes of critical care time exclusive of time spent on separately billable procedures. Time includes review of laboratory data, radiology results, discussion with consultants, and monitoring for potential decompensation. Interventions were performed as documented in my note. Disposition Clinical Impression: DKA (diabetic ketoacidosis), Nausea and vomiting, Dehydration, High anion gap metabolic acidosis, Lactic acidosis, Hyperkalemia Disposition: ADMITTED IP TO THIS HOSP Condition: Serious Time of Disposition: 08:15
[2022-09-03] MEDS ORDERED: CALCIUM GLUCONATE IN NACL 1 GM in SALINE 1 100ML.BAG IVPB ONE (08:28)
[2022-09-03] MEDS ORDERED: SODIUM BICARB 8.4% 50 ML SYR (1 MEQ/ML) IV ONE (08:28)
[2022-09-03] MEDS ORDERED: ALBUTEROL NEB (CONC) 2.5 MG/0.5 ML INHALATION ONE (08:28)
[2022-09-03 08:38] LABS: Glucose,Whole Blood 546 mg/dL (70-110)
[2022-09-03] MEDS: INSULIN REGULAR 100 UNIT in SODIUM CHLORIDE 0.9% 100 ML IV SCH ×2 (08:47→18:05)
[2022-09-03 09:38] LABS: Glucose,Whole Blood 485 mg/dL (70-110)
[2022-09-03 10:01] LABS: Amphetamine Screen,Urine Not Detected (NotDetected); Barbiturate Screen,Urine Not Detected (NotDetected); Benzodiazepines Screen,Urine Not Detected (NotDetected); Cocaine Screen,Urine Not Detected (NotDetected); Methadone Screen, Urine Not Detected (NotDetected); Opiate Screen,Urine Not Detected (NotDetected); Oxycodone Screen, Urine Not Detected (NotDetected); Phencyclidine Screen,Urine Not Detected (NotDetected); Tricyclic Antidepressant,Urine Not Detected (NotDetected); Urn Cannabinoid Scrn Not Detected (NotDetected)
[2022-09-03] MEDS ORDERED: NALOXONE 0.4 MG/ML 1 ML VIAL IV PRN (10:40)
[2022-09-03 10:58] LABS: Glucose,Whole Blood 316 mg/dL (70-110)
--- NOTE | 2022-09-03 11:19 | P.CNPUL ---
History of Present Illness Consult date: 09/03/22 Requesting physician: Brown Valenzuela Reason for consult: other Chief complaint: Recurrent diabetic ketoacidosis. History of present illness: Pulmonary consult dated 09/03/2022. 27-year-old male, well-known to our service. He presented to the emergency department with complaints of nausea and vomiting, and for the possibility of diabetic ketoacidosis. The patient was recently inpatient, with an episode of DKA. In fact, he's been in the emergency room no less than 15 times already in 2022, for similar episodes. I did call the social worker masters about this patient. I will mention this a bit more in the body of the plan. Anyway, the patient is seen in the emergency room, room 1. He is on 2 L of oxygen. He is getting an insulin drip at 7 units an hour. He is also getting saline at 200 mL an hour. The patient will likely be admitted to the intensive care unit. The patient does have a history of asthma, diabetes diabetic neuropathy, and eczema. He apparently does use marijuana. He also smokes, and vapes. Most recent lab data includes a white count of 23.4, with a normal hemoglobin, hematocrit, and platelet count. A venous blood gas shows a PE CO2 of 22, and a pH is 7.12. Sodium 139, potassium 5.8, chloride 96, and CO2 is less than 5. BUN 18 with a creatinine of 1.22. Glucose 734. Lactic acid 6.7. Magnesium 2.4. Urine was negative. Drug screen was negative. Testing for influenza, RSV, and coronavirus are all negative. Review of Systems REVIEW OF SYSTEMS: CONSTITUTIONAL: [Negative.] NEUROLOGIC: [ Negative.] HEENT: [ Negative.] CARDIAC: [Negative.] PULMONARY: [Negative.] GI: Nausea and vomiting. : [Negative.] RHEUMATOLOGIC: [ Negative.] IMMUNOLOGIC: [ Negative.] ENDOCRINE: Elevated blood sugars. DERMATOLOGIC: [Negative.] Past Medical History Past Medical History: Asthma, Diabetes Mellitus, Neurologic Disorder, Skin Disorder Additional Past Medical History / Comment(s): IDDM type I, neuropathy bilateral feet, DKA, eczema. History of Any Multi-Drug Resistant Organisms: None Reported Past Surgical History: Adenoidectomy Additional Past Surgical History / Comment(s): 2002 Past Anesthesia/Blood Transfusion Reactions: No Reported Reaction Past Psychological History: Anxiety, Depression Smoking Status: Current every day smoker, Vaper Past Alcohol Use History: None Reported Past Drug Use History: Marijuana - Past Family History Mother Family Medical History: CVA/TIA Additional Family Medical History / Comment(s): TIA Father Family Medical History: Hyperlipidemia, Hypertension Additional Family Medical History / Comment(s): . Medications and Allergies Home Medications Medication Instructions Recorded Confirmed Type INSULIN ASPART (NovoLOG) [NovoLOG 10 unit SQ AC-TID 06/29/21 09/03/22 History (formulary)] Gabapentin 600 mg PO TID 12/19/21 09/03/22 History Insulin Detemir (Levemir) [Levemir] 25 unit SQ DAILY 04/11/22 09/03/22 History buPROPion XL [Wellbutrin XL] 150 mg PO DAILY #10 tab 08/26/22 09/03/22 Rx Mirtazapine [Remeron] 45 mg PO HS 09/03/22 09/03/22 History Allergies Allergy/AdvReac Type Severity Reaction Status Date / Time No Known Allergies Allergy Verified 09/03/22 08:08 Physical Exam Osteopathic Statement: *. No significant issues noted on an osteopathic structural exam other than those noted in the History and Physical/Consult. Vitals: Vital Signs Temp Pulse Resp BP Pulse Ox 09/03/22 09:14 124 H 24 97/44 97 09/03/22 07:30 129 H 24 122/82 100 09/03/22 06:37 98.4 F 129 H 22 137/95 99 Intake and Output 09/02/22 09/03/22 09/03/22 22:59 06:59 14:59 Other: Weight 72.575 kg No acute distress, oriented 3. HEENT examination is grossly unremarkable. Neck supple. Full range of motion. No adenopathy thyromegaly or neck vein distention. Cardiovascular examination reveals regular rhythm rate. S1-S2 normal. No S3 or S4. No discernible murmur noted. Heart rate 120 bpm. Lungs reveal clear breath sounds. Breath sounds are equal bilaterally. No adventitious lung sounds including wheezes rhonchi or crackles. 2 L saturation is 97%. Abdomen soft bowel sounds are heard. No masses or tenderness. Extremities are intact. No cyanosis clubbing or edema. Skin is without rash or lesion. Neurologic examination is brief but nonfocal. Results - Laboratory Findings CBC and BMP: 09/03/22 06:43 09/03/22 06:43 PT/INR, D-dimer PT 9.9 sec (9.0-12.0) 09/03/22 06:43 INR 0.9 (<1.2) 09/03/22 06:43 Abnormal lab findings: Abnormal Labs 09/03/22 09/03/22 09/03/22 06:43 06:43 06:43 WBC 23.4 H Neutrophils # 20.7 H APTT 21.0 L VBG pH VBG pCO2 VBG HCO3 Potassium 5.8 H Chloride 96 L Carbon Dioxide <5 L* Glucose 734 H* POC Glucose (mg/dL) Plasma Lactic Acid Len Magnesium 2.4 H Urine Glucose (UA) Urine Ketones 09/03/22 09/03/22 09/03/22 06:43 06:45 06:47 WBC Neutrophils # APTT VBG pH 7.12 L* VBG pCO2 22 L VBG HCO3 7 L* Potassium Chloride Carbon Dioxide Glucose POC Glucose (mg/dL) Plasma Lactic Acid Len 6.7 H* Magnesium Urine Glucose (UA) 4+ H Urine Ketones 4+ H 09/03/22 09/03/22 09/03/22 07:00 08:36 09:36 WBC Neutrophils # APTT VBG pH VBG pCO2 VBG HCO3 Potassium Chloride Carbon Dioxide Glucose POC Glucose (mg/dL) >600 H 546 H 485 H Plasma Lactic Acid Len Magnesium Urine Glucose (UA) Urine Ketones 09/03/22 10:57 WBC Neutrophils # APTT VBG pH VBG pCO2 VBG HCO3 Potassium Chloride Carbon Dioxide Glucose POC Glucose (mg/dL) 316 H Plasma Lactic Acid Len Magnesium Urine Glucose (UA) Urine Ketones Assessment and Plan Assessment: Acute diabetic ketoacidosis, secondary to noncompliance with medications. Nausea, vomiting, and abdominal pain, all related to DKA. Anion gap metabolic acidosis, secondary to DKA. Type 1 diabetes mellitus. Diabetic neuropathy. History of ongoing tobacco use/vaping. History of previous drug overdose and suicide attempt. History of major depression, and generalized anxiety. History of chronic marijuana use. Plan: Plan dated 09/03/2022. The patient is in emergency room, room 1. He is on an insulin drip, nasal O2, and getting saline. His labs are reviewed. The patient has had 15 visits the emergency room already and 2022. The patient's history is such that I don't believe the patient can make rational decisions for himself. The patient does have a previous history of suicide attempt, and has a history of severe depr ession. I think the patient should have a court ordered guardian, and one might also consider inpatient psychiatric evaluation. I think this patient is unable to make rational decisions and healthful decisions as it relates to his situation. I did speak to the social worker masters about this patient. She will look into it is wall. His overall prognosis is poor given all of this admissions for diabetic ketoacidosis. Time with Patient: Greater than 30
[2022-09-03 11:37] LABS: Glucose,Whole Blood 237 mg/dL (70-110)
[2022-09-03] MEDS: D5-0.45% NACL WITH KCL 20MEQ/L 1,000 ML IV SCH ×2 (11:51→18:05)
[2022-09-03 12:48] LABS: African American GFR (CKD) >90 (>60 ml/min/1.73 sqM); Anion Gap 24 mmol/L; Blood Urea Nitrogen 17 mg/dL (9-20); Chloride 114 mmol/L (98-107); Glucose 273 mg/dL (74-99); Non-African American GFR(CKD) >90 (>60 ml/min/1.73 sqM); Potassium 5.1 mmol/L (3.5-5.1); Sodium 147 mmol/L (137-145)
[2022-09-03 13:00] LABS: Glucose,Whole Blood 201 mg/dL (70-110)
[2022-09-03 13:11] LABS: Carbon Dioxide 9 mmol/L (22-30)
[2022-09-03 14:13] LABS: Glucose,Whole Blood 172 mg/dL (70-110)
[2022-09-03 15:09] LABS: Glucose,Whole Blood 186 mg/dL (70-110)
[2022-09-03 16:07] LABS: Glucose,Whole Blood 144 mg/dL (70-110)
[2022-09-03 16:47] LABS: African American GFR (CKD) >90 (>60 ml/min/1.73 sqM); Anion Gap 11 mmol/L; Blood Urea Nitrogen 17 mg/dL (9-20); Carbon Dioxide 20 mmol/L (22-30); Chloride 114 mmol/L (98-107); Glucose 152 mg/dL (74-99); Non-African American GFR(CKD) >90 (>60 ml/min/1.73 sqM); Phosphorus 1.6 mg/dL (2.5-4.5); Potassium 4.2 mmol/L (3.5-5.1); Sodium 145 mmol/L (137-145)
[2022-09-03 17:14] LABS: Glucose,Whole Blood 125 mg/dL (70-110)
[2022-09-03] MEDS ORDERED: POTAS-SOD-PHOS 278-164-250 MG 1 EACH PACKET PO ONE (17:19)
[2022-09-03] MEDS ORDERED: Phosphorus Replacement Protoco 1 EACH MISC MISCELLANE PRN (17:19)
[2022-09-03 18:04] LABS: Glucose,Whole Blood 131 mg/dL (70-110)
[2022-09-03 19:07] LABS: Glucose,Whole Blood 127 mg/dL (70-110)
[2022-09-03] MEDS: ONDANSETRON 4 MG/2 ML VIAL IVP PRN (19:17)
[2022-09-03 20:10] LABS: Glucose,Whole Blood 141 mg/dL (70-110)
[2022-09-03] MEDS ORDERED: INSULIN ASPART (NovoLOG) 100 UNIT/ML VIAL SQ SCH (21:00)
[2022-09-03 21:11] LABS: ALT 22 U/L (4-49); AST 16 U/L (17-59); African American GFR (CKD) >90 (>60 ml/min/1.73 sqM); Albumin 3.7 g/dL (3.5-5.0); Alkaline Phosphatase 83 U/L (38-126); Anion Gap 13 mmol/L; Blood Urea Nitrogen 16 mg/dL (9-20); Calcium 8.3 mg/dL (8.4-10.2); Carbon Dioxide 19 mmol/L (22-30); Chloride 110 mmol/L (98-107); Glucose 174 mg/dL (74-99); Non-African American GFR(CKD) >90 (>60 ml/min/1.73 sqM); Potassium 4.6 mmol/L (3.5-5.1); Sodium 142 mmol/L (137-145); Total Bilirubin 0.5 mg/dL (0.2-1.3); Total Protein 6.2 g/dL (6.3-8.2)
[2022-09-03 21:42] LABS: Glucose,Whole Blood 183 mg/dL (70-110)
[2022-09-03] MEDS: INSULIN ASPART (NovoLOG) 100 UNIT/ML VIAL SQ SCH (21:43)
--- NOTE | 2022-09-03 22:05 | HP ---
HISTORY AND PHYSICAL CHIEF COMPLAINT: Nausea, vomiting, and semicoma. HISTORY OF PRESENT ILLNESS: This is another admission for this young man, who comes in repeatedly when he does not take his insulin. He also is known to drink alcohol. He has a longest history of depression. He came into the emergency room nearly moribund with a blood sugar over 700 and an anion gap of around 30 with a bicarb of 7. REVIEW OF SYSTEMS: Cannot be obtained. Past medical history, family history, and personal and social histories are all unchanged. PREOPERATIVE DIAGNOSIS: VITAL SIGNS: Blood pressure is 102/55 with a pulse of 140. Respirations were 40. GENERAL: He appeared to be dehydrated and semicomatose. HEAD, EARS, EYES, NOSE, MOUTH, AND THROAT: Intact as far as could be examined. CHEST: He had good breath sounds bilaterally. CARDIAC: Demonstrated tachycardia. Otherwise, his exam was normal. IMPRESSION: 1. Diabetic ketoacidosis. 2. Dehydration. 3. Uncontrolled type 1 insulin-dependent diabetes mellitus. 4. Peripheral neuropathy. 5. Gastroparesis. 6. Depression. PLAN: Bedrest in ICU with management of his DKA. MMODL / IJN: [id number] /
[2022-09-04 01:18] LABS: Glucose,Whole Blood 111 mg/dL (70-110)
[2022-09-04] MEDS: INSULIN ASPART (NovoLOG) 100 UNIT/ML VIAL SQ SCH ×5 (03:52→21:04)
[2022-09-04] MEDS: ONDANSETRON 4 MG/2 ML VIAL IVP PRN (03:52)
[2022-09-04 06:44] LABS: Glucose,Whole Blood 326 mg/dL (70-110)
[2022-09-04] MEDS ORDERED: INSULIN DETEMIR (LEVEMIR) 100 UNIT/ML SYR SQ SCH (07:00)
[2022-09-04 07:03] LABS: African American GFR (CKD) >90 (>60 ml/min/1.73 sqM); Anion Gap 21 mmol/L; Blood Urea Nitrogen 14 mg/dL (9-20); Calcium 8.3 mg/dL (8.4-10.2); Carbon Dioxide 12 mmol/L (22-30); Chloride 102 mmol/L (98-107); Glucose 342 mg/dL (74-99); Non-African American GFR(CKD) >90 (>60 ml/min/1.73 sqM); Potassium 4.6 mmol/L (3.5-5.1); Sodium 135 mmol/L (137-145)
[2022-09-04 07:04] LABS: Basophils % (A) 0 %; Eosinophils # (A) 0.1 k/uL (0-0.7); Eosinophils % (A) 1 %; HCT 38.9 % (39.0-53.0); HGB 12.8 gm/dL (13.0-17.5); Lymphocytes # (A) 1.7 k/uL (1.0-4.8); Lymphocytes % (A) 9 %; MCH 31.2 pg (25.0-35.0); MCV 94.8 fL (80.0-100.0); Mean Platelet Volume 6.9; Monocytes # (A) 0.4 k/uL (0-1.0); Monocytes % (A) 2 %; Neutrophils # (A) 16.9 k/uL (1.3-7.7); Neutrophils % (A) 87 %; Platelet Count 336 k/uL (150-450); RDW 13.1 % (11.5-15.5); WBC 19.3 k/uL (3.8-10.6)
--- NOTE | 2022-09-04 10:22 | P.PN ---
Subjective Progress Note Date: 09/04/22 Principal diagnosis: Diabetic ketoacidosis. Pulmonary consult dated 09/03/2022. 27-year-old male, well-known to our service. He presented to the emergency department with complaints of nausea and vomiting, and for the possibility of diabetic ketoacidosis. The patient was recently inpatient, with an episode of DKA. In fact, he's been in the emergency room no less than 15 times already in 2022, for similar episodes. I did call the rn social work about this patient. I will mention this a bit more in the body of the plan. Anyway, the patient is seen in the emergency room, room 1. He is on 2 L of oxygen. He is getting an insulin drip at 7 units an hour. He is also getting saline at 200 mL an hour. The patient will likely be admitted to the intensive care unit. The patient does have a history of asthma, diabetes diabetic neuropathy, and eczema. He apparently does use marijuana. He also smokes, and vapes. Most recent lab data includes a white count of 23.4, with a normal hemoglobin, hematocrit, and platelet count. A venous blood gas shows a PE CO2 of 22, and a pH is 7.12. Sodium 139, potassium 5.8, chloride 96, and CO2 is less than 5. BUN 18 with a creatinine of 1.22. Glucose 734. Lactic acid 6.7. Magnesium 2.4. Urine was negative. Drug screen was negative. Testing for influenza, RSV, and coronavirus are all negative. Progress note dated 09/04/2022. The patient is seen today in the intensive care unit, room 256. The patient can be transferred to the general medical floor. He is on room air. He's not receiving any IV fluids. Current laboratory data includes a white count 19.3, hemoglobin 12.8, hematocrit 38.9, and platelet count 336,000. Sodium 135, potassium 4.6, chlorides 102, CO2 12, anion gap 21, BUN 14, creatinine 0.73. Most recent glucose 342. Objective - Vital Signs Vital signs: Vital Signs Temp 97.6 F 09/04/22 08:00 Pulse 105 H 09/04/22 08:00 Resp 22 09/04/22 08:00 BP 139/99 09/04/22 08:00 Pulse Ox 98 09/04/22 08:00 FiO2 Intake & Output 04/11/23 04/12/23 04/12/23 18:59 06:59 18:59 Intake Total 1109.978 852.067 120 Output Total 250 1800 500 Balance 859.978 -947.933 -380 Weight 72.575 kg 70.6 kg Intake: IV 1050 850 120 0.9 KVO 120 D5-0.45% NaCl with KCl 1050 850 0 20Meq/l 1,000 ml @ 150 mls/hr IV .[id number] YAEL Rx# :[id number] Intake, IV Titration 59.978 2.067 Amount Insulin Regular 100 unit 59.978 2.067 In Sodium Chloride 0.9% 100 ml @ 0.1 UNITS/KG/HR 7.33 mls/hr IV .[id number] YAEL Rx#:[id number] Output: Urine 250 1100 500 Urine/Stool Mix 200 Emesis 500 Other: Voiding Method Bedside Commode Bedside Commode Urinal Urinal # Voids 0 # Bowel Movements 1 - Exam No acute distress, oriented 3. HEENT examination is grossly unremarkable. Neck supple. Full range of motion. No adenopathy thyromegaly or neck vein distention. Cardiovascular examination reveals regular rhythm rate. S1-S2 normal. No S3 or S4. No discernible murmur noted. Heart rate 97 bpm. Lungs reveal clear breath sounds. Breath sounds are equal bilaterally. No adventitious lung sounds including wheezes rhonchi or crackles. Room air saturation is 98%. Abdomen soft bowel sounds are heard. No masses or tenderness. Extremities are intact. No cyanosis clubbing or edema. Skin is without rash or lesion. Neurologic examination is brief but nonfocal. - Labs CBC & Chem 7: 09/04/22 06:06 09/04/22 06:06 Labs: Abnormal Lab Results - Last 24 Hours (Table) 09/03/22 09/03/22 09/03/22 Range/Units 10:57 11:35 11:48 WBC (3.8-10.6) k/uL RBC (4.30-5.90) m/uL Hgb (13.0-17.5) gm/dL Hct (39.0-53.0) % Neutrophils # (1.3-7.7) k/uL Sodium 147 H (137-145) mmol/L Chloride 114 H (98-107) mmol/L Carbon Dioxide 9 L* (22-30) mmol/L Glucose 273 H (74-99) mg/dL POC Glucose (mg/dL) 316 H 237 H (70-110) mg/dL Plasma Lactic Acid Len (0.7-2.0) mmol/L Calcium (8.4-10.2) mg/dL Phosphorus (2.5-4.5) mg/dL AST (17-59) U/L Total Protein (6.3-8.2) g/dL 09/03/22 09/03/22 09/03/22 Range/Units 12:09 12:09 12:59 WBC (3.8-10.6) k/uL RBC (4.30-5.90) m/uL Hgb (13.0-17.5) gm/dL Hct (39.0-53.0) % Neutrophils # (1.3-7.7) k/uL Sodium (137-145) mmol/L Chloride (98-107) mmol/L Carbon Dioxide (22-30) mmol/L Glucose (74-99) mg/dL POC Glucose (mg/dL) 201 H (70-110) mg/dL Plasma Lactic Acid Len 2.7 H* (0.7-2.0) mmol/L Calcium (8.4-10.2) mg/dL Phosphorus 2.4 L (2.5-4.5) mg/dL AST (17-59) U/L Total Protein (6.3-8.2) g/dL 09/03/22 09/03/22 09/03/22 Range/Units 14:12 15:08 16:05 WBC (3.8-10.6) k/uL RBC (4.30-5.90) m/uL Hgb (13.0-17.5) gm/dL Hct (39.0-53.0) % Neutrophils # (1.3-7.7) k/uL Sodium (137-145) mmol/L Chloride (98-107) mmol/L Carbon Dioxide (22-30) mmol/L Glucose (74-99) mg/dL POC Glucose (mg/dL) 172 H 186 H 144 H (70-110) mg/dL Plasma Lactic Acid Len (0.7-2.0) mmol/L Calcium (8.4-10.2) mg/dL Phosphorus (2.5-4.5) mg/dL AST (17-59) U/L Total Protein (6.3-8.2) g/dL 09/03/22 09/03/22 09/03/22 Range/Units 16:12 17:13 18:03 WBC (3.8-10.6) k/uL RBC (4.30-5.90) m/uL Hgb (13.0-17.5) gm/dL Hct (39.0-53.0) % Neutrophils # (1.3-7.7) k/uL Sodium (137-145) mmol/L Chloride 114 H (98-107) mmol/L Carbon Dioxide 20 L (22-30) mmol/L Glucose 152 H (74-99) mg/dL POC Glucose (mg/dL) 125 H 131 H (70-110) mg/dL Plasma Lactic Acid Len (0.7-2.0) mmol/L Calcium (8.4-10.2) mg/dL Phosphorus 1.6 L (2.5-4.5) mg/dL AST (17-59) U/L Total Protein (6.3-8.2) g/dL 09/03/22 09/03/22 09/03/22 Range/Units 19:06 20:09 20:27 WBC (3.8-10.6) k/uL RBC (4.30-5.90) m/uL Hgb (13.0-17.5) gm/dL Hct (39.0-53.0) % Neutrophils # (1.3-7.7) k/uL Sodium (137-145) mmol/L Chloride 110 H (98-107) mmol/L Carbon Dioxide 19 L (22-30) mmol/L Glucose 174 H (74-99) mg/dL POC Glucose (mg/dL) 127 H 141 H (70-110) mg/dL Plasma Lactic Acid Len (0.7-2.0) mmol/L Calcium 8.3 L (8.4-10.2) mg/dL Phosphorus (2.5-4.5) mg/dL AST 16 L (17-59) U/L Total Protein 6.2 L (6.3-8.2) g/dL 09/03/22 09/04/22 09/04/22 Range/Units 21:41 01:17 06:06 WBC 19.3 H (3.8-10.6) k/uL RBC 4.10 L (4.30-5.90) m/uL Hgb 12.8 L (13.0-17.5) gm/dL Hct 38.9 L (39.0-53.0) % Neutrophils # 16.9 H (1.3-7.7) k/uL Sodium (137-145) mmol/L Chloride (98-107) mmol/L Carbon Dioxide (22-30) mmol/L Glucose (74-99) mg/dL POC Glucose (mg/dL) 183 H 111 H (70-110) mg/dL Plasma Lactic Acid Len (0.7-2.0) mmol/L Calcium (8.4-10.2) mg/dL Phosphorus (2.5-4.5) mg/dL AST (17-59) U/L Total Protein (6.3-8.2) g/dL 09/04/22 09/04/22 Range/Units 06:06 06:43 WBC (3.8-10.6) k/uL RBC (4.30-5.90) m/uL Hgb (13.0-17.5) gm/dL Hct (39.0-53.0) % Neutrophils # (1.3-7.7) k/uL Sodium 135 L (137-145) mmol/L Chloride (98-107) mmol/L Carbon Dioxide 12 L (22-30) mmol/L Glucose 342 H (74-99) mg/dL POC Glucose (mg/dL) 326 H (70-110) mg/dL Plasma Lactic Acid Len (0.7-2.0) mmol/L Calcium 8.3 L (8.4-10.2) mg/dL Phosphorus (2.5-4.5) mg/dL AST (17-59) U/L Total Protein (6.3-8.2) g/dL Assessment and Plan Assessment: Acute diabetic ketoacidosis, secondary to noncompliance with medications. Nausea, vomiting, and abdominal pain, all related to DKA. Anion gap metabolic acidosis, secondary to DKA. Type 1 diabetes mellitus. Diabetic neuropathy. History of ongoing tobacco use/vaping. History of previous drug overdose and suicide attempt. History of major depression, and generalized anxiety. History of chronic marijuana use. Plan: Plan dated 09/03/2022. The patient is in emergency room, room 1. He is on an insulin drip, nasal O2, and getting saline. His labs are reviewed. The patient has had 15 visits the emergency room already and 2022. The patient's history is such that I don't believe the patient can make rational decisions for himself. The patient does have a previous history of suicide attempt, and has a history of severe depression. I think the patient should have a court ordered guardian, and one might also consider inpatient psychiatric evaluation. I think this patient is unable to make rational decisions and healthful decisions as it relates to his situation. I did speak to the rn social work about this patient. She will look into it is wall. His overall prognosis is poor given all of this admissions for diabetic ketoacidosis. Plan dated 09/04/2022. The patient is doing much better. He can be transitioned to the general medical floor. The patient does not need telemetry. The patient should be seen by social work, because of his multiple visits to the emergency room. I did speak to the charge person yesterday about this. In addition, the patient should probably have a psychiatric consultation, given his behavior, and noncompliance with medications. He has had 15 visits to the emergency room early this year. This is unacceptable my opinion. It doesn't have to be this way. His overall prognosis is very guarded given all of his episodes of diabetic U acidosis, and admissions to the emergency department. Time with Patient: Less than 30
[2022-09-04 11:16] LABS: Glucose,Whole Blood 117 mg/dL (70-110)
[2022-09-04 16:15] LABS: Glucose,Whole Blood 58 mg/dL (70-110)
[2022-09-04 16:31] LABS: Glucose,Whole Blood 60 mg/dL (70-110)
[2022-09-04 16:59] LABS: Glucose,Whole Blood 100 mg/dL (70-110)
[2022-09-04 20:15] LABS: Glucose,Whole Blood 234 mg/dL (70-110)
[2022-09-05 02:02] LABS: Glucose,Whole Blood 204 mg/dL (70-110)
[2022-09-05] MEDS: INSULIN ASPART (NovoLOG) 100 UNIT/ML VIAL SQ SCH ×3 (02:04→12:39)
[2022-09-05 06:31] LABS: Glucose,Whole Blood 82 mg/dL (70-110)
[2022-09-05] MEDS ORDERED: INSULIN DETEMIR (LEVEMIR) 100 UNIT/ML SYR SQ SCH (07:00)
[2022-09-05 07:19] VITALS: RESP 17
[2022-09-05 08:35] LABS: Glucose,Whole Blood 200 mg/dL (70-110)
[2022-09-05 11:24] LABS: Glucose,Whole Blood 318 mg/dL (70-110)
[2022-09-05 12:32] VITALS: BMI 19.4
[2022-09-05 13:35] VITALS: BP 142/97; PULSE 90; TEMP 98.5
--- NOTE | 2022-09-06 07:37 | PN ---
PROGRESS NOTE DATE OF SERVICE: 09/04/2022 CHIEF COMPLAINT: Intractable nausea and vomiting, dehydration, and DKA. HISTORY OF PRESENT ILLNESS: This gentleman's blood sugars are down. His gap is closed. However, he continues to have nausea and vomiting. PHYSICAL EXAMINATION: CHEST: Clear. CARDIAC: Normal. ABDOMEN: Soft, nontender. IMPRESSION: 1. Diabetic ketoacidosis. 2. Dehydration. 3. Intractable nausea and vomiting. 4. Gastroparesis. 5. Peripheral neuropathy. PLAN: Advance to regular diet and regular floor and discharge once his vomiting has stopped. MMODL / IJN: [id number] /
--- NOTE | 2022-09-06 08:02 | DS ---
DISCHARGE SUMMARY CHIEF COMPLAINT: DKA. HISTORY OF PRESENT ILLNESS AND PHYSICAL EXAMINATION: Details of this man's history and physical can be found in the initial workup. LABORATORY STUDIES: While he was in the hospital, he had laboratory studies, details of which can be found in the laboratory section of his chart. COURSE IN THE HOSPITAL: After admission, he was placed on bedrest and started on intravenous fluids in the intensive care unit. His blood sugars came down and his gap closed. He continued to have nausea and vomiting, however, by the morning of the , he was doing better and signed out AMA. FINAL DIAGNOSES: 1. Diabetic ketoacidosis. 2. Type 1 insulin-dependent diabetes mellitus. 3. Depression. 4. Peripheral neuropathy. 5. Gastroparesis. OPERATIONS: None. CONSULTATIONS: Intensive Medicine, is improved. MMODL / IJN: [id number] /
== END 2022-09-05 15:11 | disposition left against medical advice (07) | DRG 420 ==
LOC: EC 06:33 → 2SICU 10:40 → 4SSUR 09-05 02:29
PROVIDERS: ADMIT Family Medicine; ATTEND Family Medicine
DX: E10.10 Type 1 diabetes mellitus with ketoacidosis without coma (principal); E10.43 Type 1 diabetes mellitus with diabetic autonomic (poly)neuropathy; F10.20 Alcohol dependence, uncomplicated; Z20.822 Contact with and (suspected) exposure to COVID-19; Z53.29 Procedure and treatment not carried out because of patient's decision for other reasons; Z71.6 Tobacco abuse counseling; F32.A Depression, unspecified; F41.1 Generalized anxiety disorder; E86.0 Dehydration; E87.5 Hyperkalemia; R00.0 Tachycardia, unspecified; F17.290 Nicotine dependence, other tobacco product, uncomplicated; K31.84 Gastroparesis; Z91.51 Personal history of suicidal behavior; Z91.148 Patient's other noncompliance with medication regimen for other reason; Z79.4 Long term (current) use of insulin; Z79.899 Other long term (current) drug therapy
CPT/HCPCS: 36415; 80048; 80051; 80053; 80306; 80320; 81003; 82009; 82565; 82803; 82947; 83605; 83690; 83735; 84100; 84520; 85025; 85610; 85730; 87636; 93005; 96361; 96365; 96375; 99291

== ENCOUNTER 2022-09-11 14:08 | Inpatient (IN) | payer OTHER ==
[2022-09-11] MEDS ORDERED: SODIUM CHLORIDE 0.9% 2,000 ML IV STA (14:15)
[2022-09-11] MEDS ORDERED: METOCLOPRAMIDE 5 MG/ML 2 ML VIAL IVP STA (14:17)
[2022-09-11 14:26] LABS: Glucose,Whole Blood >600 mg/dL (70-110)
[2022-09-11] MEDS ORDERED: PANTOPRAZOLE 40 MG/10 ML VIAL IVP STA (14:32)
--- NOTE | 2022-09-11 15:03 | ED ---
Abdominal Pain HPI - General Source: patient, EMS, RN notes reviewed Mode of arrival: EMS Limitations: no limitations <Cirilo Raymond - Last Filed: 09/11/22 15:57> <Gene Lynn - Last Filed: 09/11/22 17:39> - General Chief Complaint: Abdominal Pain Stated Complaint: Vomiting Time Seen by Provider: 09/11/22 14:14 - History of Present Illness Initial Comments: 27-year-old male presents emergency from via EMS with chief complaint of hyperglycemia, nausea vomiting. Patient is well-known emergency departments with recurrent DKA, known type I diabetic. Patient states has not taken insulin the last couple days. Patient states she's been vomiting states has been very dark in color. Patient states started has been racing he just did not feel well complains abdominal pain, headache and dizziness. (Cirilo Raymond) - Related Data Home Medications Medication Instructions Recorded Confirmed INSULIN ASPART (NovoLOG) [NovoLOG 10 unit SQ AC-TID 06/29/21 09/11/22 (formulary)] Gabapentin 600 mg PO TID 12/19/21 09/11/22 Insulin Detemir (Levemir) [Levemir] 25 unit SQ DAILY 04/11/22 09/11/22 Mirtazapine [Remeron] 45 mg PO HS 09/03/22 09/11/22 Allergies Allergy/AdvReac Type Severity Reaction Status Date / Time No Known Allergies Allergy Verified 09/11/22 16:16 Review of Systems ROS Other: All systems not noted in ROS Statement are negative. <Cirilo Raymond - Last Filed: 09/11/22 15:57> ROS Other: All systems not noted in ROS Statement are negative. <Gene Lynn - Last Filed: 09/11/22 17:39> ROS Statement: Those systems with pertinent positive or pertinent negative responses have been documented in the HPI. Past Medical History Past Medical History: Asthma, Diabetes Mellitus, Neurologic Disorder, Skin Disorder Additional Past Medical History / Comment(s): IDDM type I, neuropathy bilateral feet, DKA, eczema. History of Any Multi-Drug Resistant Organisms: None Reported Past Surgical History: Adenoidectomy Additional Past Surgical History / Comment(s): 2002 Past Anesthesia/Blood Transfusion Reactions: No Reported Reaction Past Psychological History: Anxiety, Depression Smoking Status: Current every day smoker, Vaper Past Alcohol Use History: None Reported Past Drug Use History: Marijuana - Past Family History Mother Family Medical History: CVA/TIA Additional Family Medical History / Comment(s): TIA Father Family Medical History: Hyperlipidemia, Hypertension Additional Family Medical History / Comment(s): . <Cirilo Raymond - Last Filed: 09/11/22 15:57> General Exam Limitations: no limitations General appearance: alert, lethargic, in distress Head exam: Present: atraumatic, normocephalic, normal inspection Eye exam: Present: normal appearance, PERRL, EOMI. Absent: scleral icterus, conjunctival injection, periorbital swelling ENT exam: Present: normal exam, normal oropharynx, mucous membranes moist Neck exam: Present: normal inspection, full ROM. Absent: tenderness, meningismus, lymphadenopathy Respiratory exam: Present: normal lung sounds bilaterally. Absent: respiratory distress, wheezes, rales, rhonchi, stridor Cardiovascular Exam: Present: normal rhythm, tachycardia, normal heart sounds. Absent: systolic murmur, diastolic murmur, rubs, gallop, clicks GI/Abdominal exam: Present: soft, tenderness, normal bowel sounds. Absent: distended, guarding, rebound, rigid Neurological exam: Present: alert Skin exam: Present: warm, dry, intact, normal color. Absent: rash <MelizaCirilo glover M - Last Filed: 09/11/22 15:57> Course <Gene Lynn - Last Filed: 09/11/22 17:39> Vital Signs 09/11/22 09/11/22 09/11/22 14:13 14:45 15:05 Temperature 97.6 F Pulse Rate 131 H 129 H 131 H Respiratory 18 20 18 Rate Blood Pressure 105/62 106/72 107/61 O2 Sat by Pulse 100 99 100 Oximetry 09/11/22 09/11/22 16:15 16:45 Temperature Pulse Rate 131 H 138 H Respiratory 24 24 Rate Blood Pressure 89/60 99/62 O2 Sat by Pulse 99 99 Oximetry - Reevaluation(s) Reevaluation #1: 09/11/22 17:21 I did discuss the case with Dr. Valenzuela who did call back. (Gene Lynn) Reevaluation #2: 09/11/22 17:39 Dr. Shankar did come the emergency department to see the patient. (Gene Lynn) Medical Decision Making - Lab Data Result diagrams: 09/11/22 14:30 09/11/22 14:30 - EKG Data -: EKG Interpreted by Me <Cirilo Raymond Josh - Last Filed: 09/11/22 15:57> - Lab Data Result diagrams: 09/11/22 14:30 09/11/22 16:33 <ShaneGene - Last Filed: 09/11/22 17:39> - Medical Decision Making Was pt. sent in by a medical professional or institution (, JAS, FEEDER/FOLDER, urgent care, hospital, or half-way...) When possible be specific @ -No Did you speak to anyone other than the patient for history (EMS, parent, family, police, friend...)? What history was obtained from this source @ -EMS provided prehospital vitals, care, glucose Did you review nursing and triage notes (agree or disagree)? Why? @ -I reviewed and agree with nursing and triage notes Were old charts reviewed (outside hosp., previous admission, EMS record, old EKG, old radiological studies, urgent care reports/EKG's, half-way records)? Report findings @ -No old charts were reviewed Differential Diagnosis (chest pain, altered mental status, abdominal pain women, abdominal pain men, vaginal bleeding, weakness, fever, dyspnea, syncope, headache, dizziness, GI bleed, back pain, seizure, CVA, palpatations, mental health, musculoskeletal)? @ -Hyperglycemia, DKA EKG interpreted by me (3pts min.). @ -As above X-rays interpreted by me (1pt min.). @ -None done CT interpreted by me (1pt min.). @ -None done U/S interpreted by me (1pt. min.). @ -None done What testing was considered but not performed or refused? (CT, X-rays, U/S, labs)? Why? @ -None What meds were considered but not given or refused? Why? @ -None Did you discuss the management of the patient with other professionals (professionals i.e. , JAS, FEEDER/FOLDER, lab, RT, psych nurse, social psychologist, malt roaster, teacher, driver license reviewing officer, family independence case manager)? Give summary @ -Dr. Valenzuela and Dr. Artinian for admission for DKA patient be admitted ICU patient was placed on IV fluid bolus, maintenance fluids, insulin drip along with insulin bolus patient will have repeat labs every 4 hours patient have close monitoring patient was given Protonix as he had some dark emesis. Was smoking cessation discussed for >3mins.? @ -No Was critical care preformed (if so, how long)? @ -No Were there social determinants of health that impacted care today? How? (Homelessness, low income, unemployed, alcoholism, drug addiction, transportation, low edu. Level, literacy, decrease access to med. care, snf, rehab)? @ -No Was there de-escalation of care discussed even if they declined (Discuss DNR or withdrawal of care, Hospice)? DNR status @ -No What co-morbidities impacted this encounter? (DM, HTN, Smoking, COPD, CAD, Cancer, CVA, ARF, Chemo, Hep., AIDS, mental health diagnosis, sleep apnea, morbid obesity)? @ -None Was patient admitted / discharged? Hospital course, mention meds given and route, prescriptions, significant lab abnormalities, going to OR and other pertinent info. @ -[Admitted ICU for DKA with DKA protocol. Patient's VBG shows pH 7.19, CO2 25, bicarb 9 potassium 6.2 unable to calculate anion gap, current glucose 15 with a lactic elevated at 5.5. Patient was given initial 2 L fluid bolus, maintenance fluids of normal saline, insulin drip with insulin bolus of 8 units patient was also given Protonix. Patient's found to be severely tachycardic, tachypneic. Patient is admitted to ICU patient will have every 4 hours repeat labs Undiagnosed new problem with uncertain prognosis? @ -No Drug Therapy requiring intensive monitoring for toxicity (Heparin, Nitro, Insulin, Cardizem)? @ -No Were any procedures done? @ -No Diagnosis/symptom? @ -DKA Acute, or Chronic, or Acute on Chronic? @ -Acute Uncomplicated (without systemic symptoms) or Complicated (systemic symptoms)? @ -, Complicated Side effects of treatment? @ -No Exacerbation, Progression, or Severe Exacerbation? @ -No Poses a threat to life or bodily function? How? (Chest pain, USA, ID, pneumonia, PE, COPD, DKA, ARF, appy, cholecystitis, CVA, Diverticulitis, Homicidal, Suicidal, threat to staff... and all critical care pts) @ -Yes patient is in serious condition with DKA and hyperkalemia concerning for cardiac arrest. (Cirilo Raymond) - Lab Data Lab Results 09/11/22 09/11/22 09/11/22 Range/Units 14:25 14:30 14:30 WBC 15.3 H (3.8-10.6) k/uL RBC 4.90 (4.30-5.90) m/uL Hgb 15.7 (13.0-17.5) gm/dL Hct 48.5 (39.0-53.0) % MCV 98.9 (80.0-100.0) fL MCH 31.9 (25.0-35.0) pg MCHC 32.3 (31.0-37.0) g/dL RDW 13.2 (11.5-15.5) % Plt Count 470 H (150-450) k/uL MPV 8.4 Neutrophils % 83 % Lymphocytes % 13 % Monocytes % 2 % Eosinophils % 0 % Basophils % 0 % Neutrophils # 12.7 H (1.3-7.7) k/uL Lymphocytes # 2.1 (1.0-4.8) k/uL Monocytes # 0.4 (0-1.0) k/uL Eosinophils # 0.0 (0-0.7) k/uL Basophils # 0.0 (0-0.2) k/uL VBG pH (7.31-7.41) VBG pCO2 (37-51) mmHg VBG HCO3 (24-28) mmol/L Sodium (137-145) mmol/L Potassium (3.5-5.1) mmol/L Chloride (98-107) mmol/L Carbon Dioxide (22-30) mmol/L Anion Gap BUN (9-20) mg/dL Creatinine (0.66-1.25) mg/dL Est GFR (CKD-EPI)AfAm (>60 ml/min/1.73 sqM) Est GFR (CKD-EPI)NonAf (>60 ml/min/1.73 sqM) Glucose (74-99) mg/dL POC Glucose (mg/dL) >600 H (70-110) mg/dL POC Glu Organ Teacher ID Perla Gamble Lactic Ac Sepsis Rflx Plasma Lactic Acid Len (0.7-2.0) mmol/L Calcium (8.4-10.2) mg/dL Total Bilirubin (0.2-1.3) mg/dL AST (17-59) U/L ALT (4-49) U/L Alkaline Phosphatase (38-126) U/L Total Protein (6.3-8.2) g/dL Albumin (3.5-5.0) g/dL Amylase (30-110) U/L Lipase (23-300) U/L Urine Color Colorless Urine Appearance Clear (Clear) Urine pH 5.0 (5.0-8.0) Ur Specific Thayer 1.022 (1.001-1.035) Urine Protein Negative (Negative) Urine Glucose (UA) 4+ H (Negative) Urine Ketones 4+ H (Negative) Urine Blood Negative (Negative) Urine Nitrite Negative (Negative) Urine Bilirubin Negative (Negative) Urine Urobilinogen <2.0 (<2.0) mg/dL Ur Leukocyte Esterase Negative (Negative) Acetone, Qual (Negative) 09/11/22 09/11/22 09/11/22 Range/Units 14:30 14:30 14:30 WBC (3.8-10.6) k/uL RBC (4.30-5.90) m/uL Hgb (13.0-17.5) gm/dL Hct (39.0-53.0) % MCV (80.0-100.0) fL MCH (25.0-35.0) pg MCHC (31.0-37.0) g/dL RDW (11.5-15.5) % Plt Count (150-450) k/uL MPV Neutrophils % % Lymphocytes % % Monocytes % % Eosinophils % % Basophils % % Neutrophils # (1.3-7.7) k/uL Lymphocytes # (1.0-4.8) k/uL Monocytes # (0-1.0) k/uL Eosinophils # (0-0.7) k/uL Basophils # (0-0.2) k/uL VBG pH 7.19 L* (7.31-7.41) VBG pCO2 25 L (37-51) mmHg VBG HCO3 9 L* (24-28) mmol/L Sodium 135 L (137-145) mmol/L Potassium 6.2 H* (3.5-5.1) mmol/L Chloride 89 L (98-107) mmol/L Carbon Dioxide <5 L* (22-30) mmol/L Anion Gap FEEDER/FOLDER BUN 27 H (9-20) mg/dL Creatinine 1.32 H (0.66-1.25) mg/dL Est GFR (CKD-EPI)AfAm 87 (>60 ml/min/1.73 sqM) Est GFR (CKD-EPI)NonAf 75 (>60 ml/min/1.73 sqM) Glucose 915 H* (74-99) mg/dL POC Glucose (mg/dL) (70-110) mg/dL POC Glu Organ Teacher ID Lactic Ac Sepsis Rflx Plasma Lactic Acid Len 5.5 H* (0.7-2.0) mmol/L Calcium 10.1 (8.4-10.2) mg/dL Total Bilirubin 0.8 (0.2-1.3) mg/dL AST 24 (17-59) U/L ALT 26 (4-49) U/L Alkaline Phosphatase 134 H (38-126) U/L Total Protein 7.7 (6.3-8.2) g/dL Albumin 5.1 H (3.5-5.0) g/dL Amylase 60 (30-110) U/L Lipase 71 (23-300) U/L Urine Color Urine Appearance (Clear) Urine pH (5.0-8.0) Ur Specific Thayer (1.001-1.035) Urine Protein (Negative) Urine Glucose (UA) (Negative) Urine Ketones (Negative) Urine Blood (Negative) Urine Nitrite (Negative) Urine Bilirubin (Negative) Urine Urobilinogen (<2.0) mg/dL Ur Leukocyte Esterase (Negative) Acetone, Qual Positive (Negative) 09/11/22 Range/Units 15:11 WBC (3.8-10.6) k/uL RBC (4.30-5.90) m/uL Hgb (13.0-17.5) gm/dL Hct (39.0-53.0) % MCV (80.0-100.0) fL MCH (25.0-35.0) pg MCHC (31.0-37.0) g/dL RDW (11.5-15.5) % Plt Count (150-450) k/uL MPV Neutrophils % % Lymphocytes % % Monocytes % % Eosinophils % % Basophils % % Neutrophils # (1.3-7.7) k/uL Lymphocytes # (1.0-4.8) k/uL Monocytes # (0-1.0) k/uL Eosinophils # (0-0.7) k/uL Basophils # (0-0.2) k/uL VBG pH (7.31-7.41) VBG pCO2 (37-51) mmHg VBG HCO3 (24-28) mmol/L Sodium (137-145) mmol/L Potassium (3.5-5.1) mmol/L Chloride (98-107) mmol/L Carbon Dioxide (22-30) mmol/L Anion Gap BUN (9-20) mg/dL Creatinine (0.66-1.25) mg/dL Est GFR (CKD-EPI)AfAm (>60 ml/min/1.73 sqM) Est GFR (CKD-EPI)NonAf (>60 ml/min/1.73 sqM) Glucose (74-99) mg/dL POC Glucose (mg/dL) (70-110) mg/dL POC Glu Organ Teacher ID Lactic Ac Sepsis Rflx Y Plasma Lactic Acid Len (0.7-2.0) mmol/L Calcium (8.4-10.2) mg/dL Total Bilirubin (0.2-1.3) mg/dL AST (17-59) U/L ALT (4-49) U/L Alkaline Phosphatase (38-126) U/L Total Protein (6.3-8.2) g/dL Albumin (3.5-5.0) g/dL Amylase (30-110) U/L Lipase (23-300) U/L Urine Color Urine Appearance (Clear) Urine pH (5.0-8.0) Ur Specific Thayer (1.001-1.035) Urine Protein (Negative) Urine Glucose (UA) (Negative) Urine Ketones (Negative) Urine Blood (Negative) Urine Nitrite (Negative) Urine Bilirubin (Negative) Urine Urobilinogen (<2.0) mg/dL Ur Leukocyte Esterase (Negative) Acetone, Qual (Negative) - EKG Data EKG Comments: EKG performed at 14:17 sinus tachycardia rate of 132 QRS 143 QRS 94 QT/QTC 301/379 (Cirilo Raymond) Critical Care Time Critical Care Time: Yes Total Critical Care Time: 35 <Cirilo Raymond - Last Filed: 09/11/22 15:57> Disposition Time of Disposition: 15:40 <Cirilo Raymond - Last Filed: 09/11/22 15:57> <Gene Lynn - Last Filed: 09/11/22 17:39> Clinical Impression: DKA (diabetic ketoacidosis), Hyperkalemia, Lactic acidosis, Abdominal pain, Vomiting Disposition: ADMITTED IP TO THIS HOSP Condition: Critical
[2022-09-11 15:06] LABS: Basophils % (A) 0 %; Eosinophils % (A) 0 %; HCT 48.5 % (39.0-53.0); HGB 15.7 gm/dL (13.0-17.5); Lymphocytes # (A) 2.1 k/uL (1.0-4.8); Lymphocytes % (A) 13 %; MCH 31.9 pg (25.0-35.0); MCHC 32.3 g/dL (31.0-37.0); MCV 98.9 fL (80.0-100.0); Mean Platelet Volume 8.4; Monocytes # (A) 0.4 k/uL (0-1.0); Monocytes % (A) 2 %; Neutrophils # (A) 12.7 k/uL (1.3-7.7); Neutrophils % (A) 83 %; Platelet Count 470 k/uL (150-450); RDW 13.2 % (11.5-15.5); WBC 15.3 k/uL (3.8-10.6)
[2022-09-11 15:08] LABS: ALT 26 U/L (4-49); AST 24 U/L (17-59); African American GFR (CKD) 87 (>60 ml/min/1.73 sqM); Albumin 5.1 g/dL (3.5-5.0); Alkaline Phosphatase 134 U/L (38-126); Amylase 60 U/L (30-110); Blood Urea Nitrogen 27 mg/dL (9-20); Calcium 10.1 mg/dL (8.4-10.2); Chloride 89 mmol/L (98-107); Lipase 71 U/L (23-300); Non-African American GFR(CKD) 75 (>60 ml/min/1.73 sqM); Sodium 135 mmol/L (137-145); Total Bilirubin 0.8 mg/dL (0.2-1.3); Total Protein 7.7 g/dL (6.3-8.2)
[2022-09-11 15:24] LABS: Carbon Dioxide <5 mmol/L (22-30); Glucose 915 mg/dL (74-99); Potassium 6.2 mmol/L (3.5-5.1)
[2022-09-11] MEDS ORDERED: INSULIN REGULAR BOLUS (FROM DRIP BAG) IV ONE (15:31)
[2022-09-11 15:33] LABS: VBG PH 7.19 (7.31-7.41)
[2022-09-11] MEDS ORDERED: D5-0.45% NACL WITH KCL 20MEQ/L 1,000 ML IV SCH (15:45)
[2022-09-11] MEDS: SODIUM CHLORIDE 0.9% 1,000 ML IV SCH ×2 (16:34→20:43)
[2022-09-11] MEDS: INSULIN REGULAR 100 UNIT in SODIUM CHLORIDE 0.9% 100 ML IV SCH (16:37)
[2022-09-11 16:41] LABS: Appearance,Urine Clear (Clear); Bilirubin,Urine Negative (Negative); Blood,Urine Negative (Negative); Color,Urine Colorless; Glucose,Urine (UA) 4+ (Negative); Leukocyte Esterase,Urine Negative (Negative); Nitrite,Urine Negative (Negative); Protein,Urine Negative (Negative); Specific Gravity,Urine 1.022 (1.001-1.035); Urobilinogen,Urine <2.0 mg/dL (<2.0)
[2022-09-11 16:47] LABS: Ketones,Urine 4+ (Negative)
[2022-09-11 17:06] LABS: African American GFR (CKD) 80 (>60 ml/min/1.73 sqM); Blood Urea Nitrogen 27 mg/dL (9-20); Chloride 99 mmol/L (98-107); Non-African American GFR(CKD) 69 (>60 ml/min/1.73 sqM); Sodium 137 mmol/L (137-145)
[2022-09-11 17:29] LABS: Carbon Dioxide <5 mmol/L (22-30); Glucose 853 mg/dL (74-99); Potassium 7.4 mmol/L (3.5-5.1)
[2022-09-11 17:30] LABS: Glucose,Whole Blood >600 mg/dL (70-110)
[2022-09-11] MEDS ORDERED: SODIUM CHLORIDE 0.9% 1,000 ML IV ONE (17:45)
[2022-09-11 18:14] LABS: Cocaine Screen,Urine Not Detected (NotDetected); Phencyclidine Screen,Urine Not Detected (NotDetected)
[2022-09-11 18:15] LABS: Amphetamine Screen,Urine Not Detected (NotDetected); Barbiturate Screen,Urine Not Detected (NotDetected); Benzodiazepines Screen,Urine Not Detected (NotDetected); Methadone Screen, Urine Not Detected (NotDetected); Opiate Screen,Urine Not Detected (NotDetected); Oxycodone Screen, Urine Not Detected (NotDetected); Tricyclic Antidepressant,Urine Not Detected (NotDetected); Urn Cannabinoid Scrn Not Detected (NotDetected)
[2022-09-11 18:49] LABS: Glucose,Whole Blood 484 mg/dL (70-110)
[2022-09-11 19:33] LABS: Glucose,Whole Blood 338 mg/dL (70-110)
[2022-09-11 20:37] LABS: Glucose,Whole Blood 248 mg/dL (70-110)
[2022-09-11] MEDS: D5-0.45% NACL WITH KCL 20MEQ/L 1,000 ML IV SCH (20:42)
--- NOTE | 2022-09-11 20:53 | P.CNPUL ---
History of Present Illness Consult date: 09/11/22 Chief complaint: Hyperglycemia, altered mentation, DKA History of present illness: 27-year-old male patient, known history of type 1 diabetes mellitus with poor compliancy, underlying psychiatric disorder, major depression, anxiety, substance abuse and homelessness. Patient has had multiple hospitalization for hypoglycemia today and is well-known to the emergency department. He is currently admissions. The patient has not been taking his insulin over the past couple of days and he presented emergency department having symptoms of nausea and emesis, and hyperglycemia and abdominal pain. He was dehydrated. He was supposed to be on Levemir insulin at a dose of 25 units on outpatient basis. In the emergency, the patient had a potassium level of 6.2, sodium level of 135, serum bicarb of less than 5, BUN of 27 with a creatinine of 1.32 and a blood sugar of 9:15. His white cell count was 15.3 with a hemoglobin 15.7. The patient was tachycardic. His examination was consistent with significant dehydration. Venous blood gases showed a pH of 7.19 with a pCO2 of 25. Lactic acid level was elevated at 5.5. He was immediately given 2 L of normal saline bolus in the emergency room the patient was started insulin drip at 8 units an hour. He is also on normal saline at 200 mL an hour. He is lethargic, quite obtunded yet arousable. His urine screen was negative. Review of Systems ROS unobtainable: due to mental status Past Medical History Past Medical History: Asthma, Diabetes Mellitus, Neurologic Disorder, Skin Disorder Additional Past Medical History / Comment(s): IDDM type I, neuropathy bilateral feet, DKA, eczema. History of Any Multi-Drug Resistant Organisms: None Reported Past Surgical History: Adenoidectomy Additional Past Surgical History / Comment(s): 2002 Past Anesthesia/Blood Transfusion Reactions: No Reported Reaction Past Psychological History: Anxiety, Depression Smoking Status: Current every day smoker, Vaper Past Alcohol Use History: None Reported Past Drug Use History: Marijuana - Past Family History Mother Family Medical History: CVA/TIA Additional Family Medical History / Comment(s): TIA Father Family Medical History: Hyperlipidemia, Hypertension Additional Family Medical History / Comment(s): . Medications and Allergies Home Medications Medication Instructions Recorded Confirmed Type INSULIN ASPART (NovoLOG) [NovoLOG 10 unit SQ AC-TID 06/29/21 09/11/22 History (formulary)] Gabapentin 600 mg PO TID 12/19/21 09/11/22 History Insulin Detemir (Levemir) [Levemir] 25 unit SQ DAILY 04/11/22 09/11/22 History Mirtazapine [Remeron] 45 mg PO HS 09/03/22 09/11/22 History Allergies Allergy/AdvReac Type Severity Reaction Status Date / Time No Known Allergies Allergy Verified 09/11/22 16:16 Physical Exam Vitals: Vital Signs Temp Pulse Resp BP Pulse Ox 09/11/22 16:45 138 H 24 99/62 99 09/11/22 16:15 131 H 24 89/60 99 09/11/22 15:05 131 H 18 107/61 100 09/11/22 14:45 129 H 20 106/72 99 09/11/22 14:13 97.6 F 131 H 18 105/62 100 Intake and Output 09/11/22 09/11/22 09/11/22 06:59 14:59 22:59 Intake Total 18.21 Balance 18.21 Intake: Intake, IV Titration 18.21 Amount Insulin Regular 100 unit 18.21 In Sodium Chloride 0.9% 100 ml @ 0.1 UNITS/KG/HR 6.208 mls/hr IV .[id number] [facility] Rx#:[id number] Other: Weight 61.462 kg GENERAL EXAM: Alert, pleasant, thin 26-year-old male, on room air,patient seems quite dehydrated, not collaborating well with with examination, not answering questions, and he does have dry mucous membranes. HEAD: Normocephalic. EYES: Normal reaction of pupils, equal size. NOSE: Clear with pink turbinates. THROAT: No erythema or exudates. NECK: No masses, no JVD. CHEST: No chest wall deformity. LUNGS: Equal air entry with no crackles, wheeze, rhonchi or dullness. CVS: S1 and S2 normal with no audible murmur, regular rhythm.the patient is sinus tachycardia ABDOMEN: No hepatosplenomegaly, normal bowel sounds, no guarding or rigidity. SPINE: No scoliosis or deformity SKIN: No rashes CENTRAL NERVOUS SYSTEM: No focal deficits, tone is normal in all 4 extremities. EXTREMITIES: There is no peripheral edema. No clubbing, no cyanosis. Peripheral pulses are intact. Results - Laboratory Findings CBC and BMP: 09/11/22 14:30 09/11/22 16:33 Abnormal lab findings: Abnormal Labs 09/11/22 09/11/22 09/11/22 14:25 14:30 14:30 WBC 15.3 H Plt Count 470 H Neutrophils # 12.7 H VBG pH VBG pCO2 VBG HCO3 Sodium Potassium Chloride Carbon Dioxide BUN Creatinine Glucose POC Glucose (mg/dL) >600 H Plasma Lactic Acid Len Phosphorus Alkaline Phosphatase Albumin Urine Glucose (UA) 4+ H Urine Ketones 4+ H 09/11/22 09/11/22 09/11/22 14:30 14:30 14:30 WBC Plt Count Neutrophils # VBG pH 7.19 L* VBG pCO2 25 L VBG HCO3 9 L* Sodium 135 L Potassium 6.2 H* Chloride 89 L Carbon Dioxide <5 L* BUN 27 H Creatinine 1.32 H Glucose 915 H* POC Glucose (mg/dL) Plasma Lactic Acid Len 5.5 H* Phosphorus Alkaline Phosphatase 134 H Albumin 5.1 H Urine Glucose (UA) Urine Ketones 09/11/22 09/11/22 09/11/22 16:33 16:33 17:28 WBC Plt Count Neutrophils # VBG pH VBG pCO2 VBG HCO3 Sodium Potassium 7.4 H* Chloride Carbon Dioxide <5 L* BUN 27 H Creatinine 1.41 H Glucose 853 H* POC Glucose (mg/dL) >600 H Plasma Lactic Acid Len Phosphorus 8.7 H Alkaline Phosphatase Albumin Urine Glucose (UA) Urine Ketones 09/11/22 09/11/22 09/11/22 17:40 18:34 19:31 WBC Plt Count Neutrophils # VBG pH VBG pCO2 VBG HCO3 Sodium Potassium Chloride Carbon Dioxide BUN Creatinine Glucose POC Glucose (mg/dL) 484 H 338 H Plasma Lactic Acid Len 2.2 H* Phosphorus Alkaline Phosphatase Albumin Urine Glucose (UA) Urine Ketones 09/11/22 20:35 WBC Plt Count Neutrophils # VBG pH VBG pCO2 VBG HCO3 Sodium Potassium Chloride Carbon Dioxide BUN Creatinine Glucose POC Glucose (mg/dL) 248 H Plasma Lactic Acid Len Phosphorus Alkaline Phosphatase Albumin Urine Glucose (UA) Urine Ketones Assessment and Plan Plan: Acute diabetic ketoacidosis, secondary to noncompliance with medications. Nausea, vomiting, and abdominal pain, all related to DKA. Anion gap metabolic acidosis, secondary to DKA. Type 1 diabetes mellitus, poor compliance Acute kidney injury secondary to above, likely on the basis of intravascular volume depletion/dehydration acute hyperkalemia secondary to above, without hyperacute T waves Acute lactic acidosis secondary to above Diabetic neuropathy History of ongoing tobacco use/vaping. History of previous drug overdose and suicide attempt. History of major depression, and generalized anxiety. History of chronic marijuana use. Homelessness Plan: We'll manage the patient's based on the DKA protocol Already given 2 L of fluid normal saline Continue insulin drip Electrolytes every 4 hours Blood sugars on an hourly basis IV Protonix We'll try to close the gap within the next 24 hours based on underlying hyperkalemia, we'll give the patient calcium chloride, total dose of 50 mEq of sodium bicarbonate and continue the insulin management. Repeat K Needs intensive care unit monitoring
[2022-09-11] MEDS ORDERED: SODIUM BICARB 8.4% 50 ML SYR (1 MEQ/ML) IV STA (21:00)
[2022-09-11] MEDS ORDERED: CALCIUM CHLORIDE 100 MG/ML 10 ML SYRINGE IVP STA (21:00)
[2022-09-11 21:04] LABS: African American GFR (CKD) >90 (>60 ml/min/1.73 sqM); Anion Gap 21 mmol/L; Blood Urea Nitrogen 26 mg/dL (9-20); Carbon Dioxide 14 mmol/L (22-30); Chloride 109 mmol/L (98-107); Glucose 292 mg/dL (74-99); Non-African American GFR(CKD) >90 (>60 ml/min/1.73 sqM); Potassium 4.9 mmol/L (3.5-5.1); Sodium 144 mmol/L (137-145)
[2022-09-11 21:44] LABS: Glucose,Whole Blood 249 mg/dL (70-110)
[2022-09-11 22:31] LABS: Glucose,Whole Blood 199 mg/dL (70-110)
[2022-09-11 23:45] LABS: Glucose,Whole Blood 198 mg/dL (70-110)
[2022-09-12 00:29] LABS: Glucose,Whole Blood 457 mg/dL (70-110)
[2022-09-12 01:11] LABS: African American GFR (CKD) >90 (>60 ml/min/1.73 sqM); Anion Gap 4 mmol/L; Blood Urea Nitrogen 16 mg/dL (9-20); Carbon Dioxide 10 mmol/L (22-30); Chloride 120 mmol/L (98-107); Non-African American GFR(CKD) >90 (>60 ml/min/1.73 sqM); Sodium 134 mmol/L (137-145)
[2022-09-12 01:21] LABS: Glucose 685 mg/dL (74-99); Potassium 6.2 mmol/L (3.5-5.1)
[2022-09-12 01:29] LABS: Glucose,Whole Blood 210 mg/dL (70-110)
[2022-09-12 01:29] LABS: Glucose,Whole Blood 192 mg/dL (70-110)
[2022-09-12 01:39] LABS: Glucose,Whole Blood 169 mg/dL (70-110)
[2022-09-12] MEDS: SODIUM CHLORIDE 0.9% 1,000 ML IV SCH ×4 (02:01→16:53)
[2022-09-12 02:39] LABS: Glucose,Whole Blood 165 mg/dL (70-110)
[2022-09-12 02:44] LABS: Glucose 176 mg/dL (74-99)
[2022-09-12] MEDS: DEXTROSE 5%-0.45% NACL 1,000 ML IV SCH ×3 (03:26→17:21)
[2022-09-12] MEDS: D5-0.45% NACL WITH KCL 20MEQ/L 1,000 ML IV SCH (03:27)
[2022-09-12 03:36] LABS: Glucose,Whole Blood 143 mg/dL (70-110)
[2022-09-12 03:41] LABS: African American GFR (CKD) >90 (>60 ml/min/1.73 sqM); Anion Gap 6 mmol/L; Blood Urea Nitrogen 22 mg/dL (9-20); Calcium 8.1 mg/dL (8.4-10.2); Carbon Dioxide 23 mmol/L (22-30); Chloride 113 mmol/L (98-107); Non-African American GFR(CKD) >90 (>60 ml/min/1.73 sqM); Potassium 4.9 mmol/L (3.5-5.1); Sodium 142 mmol/L (137-145)
[2022-09-12 04:32] LABS: Glucose,Whole Blood 153 mg/dL (70-110)
[2022-09-12 05:31] LABS: Glucose,Whole Blood 175 mg/dL (70-110)
[2022-09-12 06:35] LABS: Glucose,Whole Blood 171 mg/dL (70-110)
[2022-09-12 07:35] LABS: Glucose,Whole Blood 150 mg/dL (70-110)
[2022-09-12 08:31] LABS: Glucose,Whole Blood 192 mg/dL (70-110)
[2022-09-12 08:54] LABS: ALT 21 U/L (4-49); AST 18 U/L (17-59); African American GFR (CKD) >90 (>60 ml/min/1.73 sqM); Albumin 3.4 g/dL (3.5-5.0); Alkaline Phosphatase 82 U/L (38-126); Anion Gap 11 mmol/L; Blood Urea Nitrogen 19 mg/dL (9-20); Calcium 7.9 mg/dL (8.4-10.2); Carbon Dioxide 21 mmol/L (22-30); Chloride 110 mmol/L (98-107); Glucose 163 mg/dL (74-99); Non-African American GFR(CKD) >90 (>60 ml/min/1.73 sqM); Potassium 4.2 mmol/L (3.5-5.1); Sodium 142 mmol/L (137-145); Total Bilirubin 0.4 mg/dL (0.2-1.3); Total Protein 5.8 g/dL (6.3-8.2)
[2022-09-12 09:38] LABS: Glucose,Whole Blood 207 mg/dL (70-110)
[2022-09-12 10:33] LABS: Glucose,Whole Blood 223 mg/dL (70-110)
[2022-09-12 11:31] LABS: Glucose,Whole Blood 226 mg/dL (70-110)
[2022-09-12 12:34] LABS: Glucose,Whole Blood 255 mg/dL (70-110)
[2022-09-12] MEDS ORDERED: INSULIN NPH 100 UNIT/ML 10 ML VIAL SQ ONE (13:22)
--- NOTE | 2022-09-12 13:23 | P.PN ---
Subjective Progress Note Date: 09/12/22 On today's evaluation of 09/12/2022, the patient is awake and alert and communicating. He is adequately treated for his BKA and the patient's is essentially recovered and the patient has closed his anion gap. This morning, his tachycardia is recovered and the patient is in normal sinus rhythm. The patient is not having any rest or distress. He is on room air oxygen. He is awake and alert and is also communicating. He remains on insulin drip at 1.5 units an hour. Most recent blood work shows a sugar of 255, sodium is at 142, potassium is 4.2, creatinine is 110 with a bicarb of 21, anion gap of 11, BUN is 19 with a creatinine of 0.5. Lactic acid level has normalized. Objective - Vital Signs Vital signs: Vital Signs Temp 97.6 F 09/11/22 14:13 Pulse 85 09/12/22 11:15 Resp 16 09/12/22 11:15 BP 133/95 09/12/22 11:15 Pulse Ox 96 09/12/22 11:15 FiO2 Intake & Output 09/11/22 09/12/22 09/12/22 18:59 06:59 18:59 Intake Total 37.293 6.576 Balance 37.293 6.576 Weight 61.462 kg Intake: Intake, IV Titration 37.293 6.576 Amount Insulin Regular 100 unit 37.293 6.576 In Sodium Chloride 0.9% 100 ml @ 0.1 UNITS/KG/HR 6.208 mls/hr IV .[id number] [facility] Rx#:[id number] - Exam The patient appeared well nourished and normally developed. Vital signs as documented. Head exam is unremarkable. No scleral icterus or corneal arcus noted. Neck is without jugular venous distension, thyromegaly, or carotid bruits. Carotid upstrokes are brisk bilaterally. Lungs are clear to auscultation and percussion. Cardiac exam reveals the PMI to be normally sized and situated. Rhythm is regular. First and second heart sounds normal. No murmurs, rubs or gallops. Abdominal exam reveals normal bowel sounds, no masses, no organomegaly and no aortic enlargement. Extremities are nonedematous and both femoral and pedal pulses are normal. - Labs CBC & Chem 7: 09/11/22 14:30 09/12/22 08:02 Labs: Abnormal Lab Results - Last 24 Hours (Table) 09/11/22 09/11/22 09/11/22 Range/Units 14:25 14:30 14:30 WBC 15.3 H (3.8-10.6) k/uL Plt Count 470 H (150-450) k/uL Neutrophils # 12.7 H (1.3-7.7) k/uL VBG pH (7.31-7.41) VBG pCO2 (37-51) mmHg VBG HCO3 (24-28) mmol/L Sodium (137-145) mmol/L Potassium (3.5-5.1) mmol/L Chloride (98-107) mmol/L Carbon Dioxide (22-30) mmol/L BUN (9-20) mg/dL Creatinine (0.66-1.25) mg/dL Glucose (74-99) mg/dL POC Glucose (mg/dL) >600 H (70-110) mg/dL Plasma Lactic Acid Len (0.7-2.0) mmol/L Calcium (8.4-10.2) mg/dL Phosphorus (2.5-4.5) mg/dL Alkaline Phosphatase (38-126) U/L Total Protein (6.3-8.2) g/dL Albumin (3.5-5.0) g/dL Urine Glucose (UA) 4+ H (Negative) Urine Ketones 4+ H (Negative) 09/11/22 09/11/22 09/11/22 Range/Units 14:30 14:30 14:30 WBC (3.8-10.6) k/uL Plt Count (150-450) k/uL Neutrophils # (1.3-7.7) k/uL VBG pH 7.19 L* (7.31-7.41) VBG pCO2 25 L (37-51) mmHg VBG HCO3 9 L* (24-28) mmol/L Sodium 135 L (137-145) mmol/L Potassium 6.2 H* (3.5-5.1) mmol/L Chloride 89 L (98-107) mmol/L Carbon Dioxide <5 L* (22-30) mmol/L BUN 27 H (9-20) mg/dL Creatinine 1.32 H (0.66-1.25) mg/dL Glucose 915 H* (74-99) mg/dL POC Glucose (mg/dL) (70-110) mg/dL Plasma Lactic Acid Len 5.5 H* (0.7-2.0) mmol/L Calcium (8.4-10.2) mg/dL Phosphorus (2.5-4.5) mg/dL Alkaline Phosphatase 134 H (38-126) U/L Total Protein (6.3-8.2) g/dL Albumin 5.1 H (3.5-5.0) g/dL Urine Glucose (UA) (Negative) Urine Ketones (Negative) 09/11/22 09/11/22 09/11/22 Range/Units 16:33 16:33 17:28 WBC (3.8-10.6) k/uL Plt Count (150-450) k/uL Neutrophils # (1.3-7.7) k/uL VBG pH (7.31-7.41) VBG pCO2 (37-51) mmHg VBG HCO3 (24-28) mmol/L Sodium (137-145) mmol/L Potassium 7.4 H* (3.5-5.1) mmol/L Chloride (98-107) mmol/L Carbon Dioxide <5 L* (22-30) mmol/L BUN 27 H (9-20) mg/dL Creatinine 1.41 H (0.66-1.25) mg/dL Glucose 853 H* (74-99) mg/dL POC Glucose (mg/dL) >600 H (70-110) mg/dL Plasma Lactic Acid Len (0.7-2.0) mmol/L Calcium (8.4-10.2) mg/dL Phosphorus 8.7 H (2.5-4.5) mg/dL Alkaline Phosphatase (38-126) U/L Total Protein (6.3-8.2) g/dL Albumin (3.5-5.0) g/dL Urine Glucose (UA) (Negative) Urine Ketones (Negative) 09/11/22 09/11/22 09/11/22 Range/Units 17:40 18:34 19:31 WBC (3.8-10.6) k/uL Plt Count (150-450) k/uL Neutrophils # (1.3-7.7) k/uL VBG pH (7.31-7.41) VBG pCO2 (37-51) mmHg VBG HCO3 (24-28) mmol/L Sodium (137-145) mmol/L Potassium (3.5-5.1) mmol/L Chloride (98-107) mmol/L Carbon Dioxide (22-30) mmol/L BUN (9-20) mg/dL Creatinine (0.66-1.25) mg/dL Glucose (74-99) mg/dL POC Glucose (mg/dL) 484 H 338 H (70-110) mg/dL Plasma Lactic Acid Len 2.2 H* (0.7-2.0) mmol/L Calcium (8.4-10.2) mg/dL Phosphorus (2.5-4.5) mg/dL Alkaline Phosphatase (38-126) U/L Total Protein (6.3-8.2) g/dL Albumin (3.5-5.0) g/dL Urine Glucose (UA) (Negative) Urine Ketones (Negative) 09/11/22 09/11/22 09/11/22 Range/Units 20:10 20:10 20:35 WBC (3.8-10.6) k/uL Plt Count (150-450) k/uL Neutrophils # (1.3-7.7) k/uL VBG pH (7.31-7.41) VBG pCO2 (37-51) mmHg VBG HCO3 (24-28) mmol/L Sodium (137-145) mmol/L Potassium (3.5-5.1) mmol/L Chloride 109 H (98-107) mmol/L Carbon Dioxide 14 L (22-30) mmol/L BUN 26 H (9-20) mg/dL Creatinine (0.66-1.25) mg/dL Glucose 292 H (74-99) mg/dL POC Glucose (mg/dL) 248 H (70-110) mg/dL Plasma Lactic Acid Len 3.1 H* (0.7-2.0) mmol/L Calcium (8.4-10.2) mg/dL Phosphorus (2.5-4.5) mg/dL Alkaline Phosphatase (38-126) U/L Total Protein (6.3-8.2) g/dL Albumin (3.5-5.0) g/dL Urine Glucose (UA) (Negative) Urine Ketones (Negative) 09/11/22 09/11/22 09/11/22 Range/Units 21:32 22:29 23:44 WBC (3.8-10.6) k/uL Plt Count (150-450) k/uL Neutrophils # (1.3-7.7) k/uL VBG pH (7.31-7.41) VBG pCO2 (37-51) mmHg VBG HCO3 (24-28) mmol/L Sodium (137-145) mmol/L Potassium (3.5-5.1) mmol/L Chloride (98-107) mmol/L Carbon Dioxide (22-30) mmol/L BUN (9-20) mg/dL Creatinine (0.66-1.25) mg/dL Glucose (74-99) mg/dL POC Glucose (mg/dL) 249 H 199 H 198 H (70-110) mg/dL Plasma Lactic Acid Len (0.7-2.0) mmol/L Calcium (8.4-10.2) mg/dL Phosphorus (2.5-4.5) mg/dL Alkaline Phosphatase (38-126) U/L Total Protein (6.3-8.2) g/dL Albumin (3.5-5.0) g/dL Urine Glucose (UA) (Negative) Urine Ketones (Negative) 09/12/22 09/12/22 09/12/22 Range/Units 00:28 00:30 00:31 WBC (3.8-10.6) k/uL Plt Count (150-450) k/uL Neutrophils # (1.3-7.7) k/uL VBG pH (7.31-7.41) VBG pCO2 (37-51) mmHg VBG HCO3 (24-28) mmol/L Sodium 134 L (137-145) mmol/L Potassium 6.2 H* (3.5-5.1) mmol/L Chloride 120 H (98-107) mmol/L Carbon Dioxide 10 L (22-30) mmol/L BUN (9-20) mg/dL Creatinine 0.39 L (0.66-1.25) mg/dL Glucose 685 H* (74-99) mg/dL POC Glucose (mg/dL) 457 H 210 H (70-110) mg/dL Plasma Lactic Acid Len (0.7-2.0) mmol/L Calcium (8.4-10.2) mg/dL Phosphorus 2.0 L (2.5-4.5) mg/dL Alkaline Phosphatase (38-126) U/L Total Protein (6.3-8.2) g/dL Albumin (3.5-5.0) g/dL Urine Glucose (UA) (Negative) Urine Ketones (Negative) 09/12/22 09/12/22 09/12/22 Range/Units 01:28 01:38 02:06 WBC (3.8-10.6) k/uL Plt Count (150-450) k/uL Neutrophils # (1.3-7.7) k/uL VBG pH (7.31-7.41) VBG pCO2 (37-51) mmHg VBG HCO3 (24-28) mmol/L Sodium (137-145) mmol/L Potassium (3.5-5.1) mmol/L Chloride 113 H (98-107) mmol/L Carbon Dioxide (22-30) mmol/L BUN 22 H (9-20) mg/dL Creatinine 0.64 L (0.66-1.25) mg/dL Glucose 176 H (74-99) mg/dL POC Glucose (mg/dL) 192 H 169 H (70-110) mg/dL Plasma Lactic Acid Len (0.7-2.0) mmol/L Calcium 8.1 L (8.4-10.2) mg/dL Phosphorus (2.5-4.5) mg/dL Alkaline Phosphatase (38-126) U/L Total Protein (6.3-8.2) g/dL Albumin (3.5-5.0) g/dL Urine Glucose (UA) (Negative) Urine Ketones (Negative) 09/12/22 09/12/22 09/12/22 Range/Units 02:37 03:34 04:30 WBC (3.8-10.6) k/uL Plt Count (150-450) k/uL Neutrophils # (1.3-7.7) k/uL VBG pH (7.31-7.41) VBG pCO2 (37-51) mmHg VBG HCO3 (24-28) mmol/L Sodium (137-145) mmol/L Potassium (3.5-5.1) mmol/L Chloride (98-107) mmol/L Carbon Dioxide (22-30) mmol/L BUN (9-20) mg/dL Creatinine (0.66-1.25) mg/dL Glucose (74-99) mg/dL POC Glucose (mg/dL) 165 H 143 H 153 H (70-110) mg/dL Plasma Lactic Acid Len (0.7-2.0) mmol/L Calcium (8.4-10.2) mg/dL Phosphorus (2.5-4.5) mg/dL Alkaline Phosphatase (38-126) U/L Total Protein (6.3-8.2) g/dL Albumin (3.5-5.0) g/dL Urine Glucose (UA) (Negative) Urine Ketones (Negative) 09/12/22 09/12/22 09/12/22 Range/Units 05:30 06:32 07:34 WBC (3.8-10.6) k/uL Plt Count (150-450) k/uL Neutrophils # (1.3-7.7) k/uL VBG pH (7.31-7.41) VBG pCO2 (37-51) mmHg VBG HCO3 (24-28) mmol/L Sodium (137-145) mmol/L Potassium (3.5-5.1) mmol/L Chloride (98-107) mmol/L Carbon Dioxide (22-30) mmol/L BUN (9-20) mg/dL Creatinine (0.66-1.25) mg/dL Glucose (74-99) mg/dL POC Glucose (mg/dL) 175 H 171 H 150 H (70-110) mg/dL Plasma Lactic Acid Len (0.7-2.0) mmol/L Calcium (8.4-10.2) mg/dL Phosphorus (2.5-4.5) mg/dL Alkaline Phosphatase (38-126) U/L Total Protein (6.3-8.2) g/dL Albumin (3.5-5.0) g/dL Urine Glucose (UA) (Negative) Urine Ketones (Negative) 09/12/22 09/12/22 09/12/22 Range/Units 08:02 08:30 09:37 WBC (3.8-10.6) k/uL Plt Count (150-450) k/uL Neutrophils # (1.3-7.7) k/uL VBG pH (7.31-7.41) VBG pCO2 (37-51) mmHg VBG HCO3 (24-28) mmol/L Sodium (137-145) mmol/L Potassium (3.5-5.1) mmol/L Chloride 110 H (98-107) mmol/L Carbon Dioxide 21 L (22-30) mmol/L BUN (9-20) mg/dL Creatinine 0.56 L (0.66-1.25) mg/dL Glucose 163 H (74-99) mg/dL POC Glucose (mg/dL) 192 H 207 H (70-110) mg/dL Plasma Lactic Acid Len (0.7-2.0) mmol/L Calcium 7.9 L (8.4-10.2) mg/dL Phosphorus (2.5-4.5) mg/dL Alkaline Phosphatase (38-126) U/L Total Protein 5.8 L (6.3-8.2) g/dL Albumin 3.4 L (3.5-5.0) g/dL Urine Glucose (UA) (Negative) Urine Ketones (Negative) 09/12/22 09/12/22 09/12/22 Range/Units 10:32 11:30 12:32 WBC (3.8-10.6) k/uL Plt Count (150-450) k/uL Neutrophils # (1.3-7.7) k/uL VBG pH (7.31-7.41) VBG pCO2 (37-51) mmHg VBG HCO3 (24-28) mmol/L Sodium (137-145) mmol/L Potassium (3.5-5.1) mmol/L Chloride (98-107) mmol/L Carbon Dioxide (22-30) mmol/L BUN (9-20) mg/dL Creatinine (0.66-1.25) mg/dL Glucose (74-99) mg/dL POC Glucose (mg/dL) 223 H 226 H 255 H (70-110) mg/dL Plasma Lactic Acid Len (0.7-2.0) mmol/L Calcium (8.4-10.2) mg/dL Phosphorus (2.5-4.5) mg/dL Alkaline Phosphatase (38-126) U/L Total Protein (6.3-8.2) g/dL Albumin (3.5-5.0) g/dL Urine Glucose (UA) (Negative) Urine Ketones (Negative) Assessment and Plan Plan: Acute diabetic ketoacidosis, secondary to noncompliance with medications. 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 History of previous drug overdose and suicide attempt. History of major depression, and generalized anxiety. History of chronic marijuana use. Homelessness Plan: Start the patient on diabetic diet carbohydrate consistent Offered the patient Levemir insulin 18 units along with a slight scale coverage Discontinue the insulin drip Monitor the blood sugars Electrolytes are all stable The patient can be transferred to the medical floor and was discontinue ICU transfer this point in time.
[2022-09-12] MEDS ORDERED: INSULIN DETEMIR (LEVEMIR) 100 UNIT/ML SYR SQ SCH ×2 (14:00→18:45)
[2022-09-12 14:20] LABS: Glucose,Whole Blood 263 mg/dL (70-110)
[2022-09-12 15:23] VITALS: RESP 17
[2022-09-12 16:06] LABS: Glucose,Whole Blood 349 mg/dL (70-110)
[2022-09-12] MEDS: INSULIN REGULAR 100 UNIT in SODIUM CHLORIDE 0.9% 100 ML IV SCH (16:33)
[2022-09-12 17:10] LABS: Glucose,Whole Blood 295 mg/dL (70-110)
[2022-09-12] MEDS ORDERED: INSULIN ASPART (NovoLOG) 100 UNIT/ML VIAL SQ SCH (17:30)
[2022-09-12 18:11] LABS: Glucose,Whole Blood 249 mg/dL (70-110)
[2022-09-12 18:17] VITALS: BP 148/106; PULSE 80; TEMP 97.4
[2022-09-12] MEDS ORDERED: INSULIN DETEMIR (LEVEMIR) 100 UNIT/ML SYR SQ ONE (18:45)
[2022-09-12] MEDS ORDERED: LOSARTAN 50 MG TAB PO SCH (18:45)
[2022-09-12 19:06] LABS: Glucose,Whole Blood 233 mg/dL (70-110)
[2022-09-12 20:16] LABS: Glucose,Whole Blood 172 mg/dL (70-110)
[2022-09-12] MEDS ORDERED: MIRTAZAPINE 15 MG TAB PO SCH (21:00)
[2022-09-12 21:11] LABS: Glucose,Whole Blood 168 mg/dL (70-110)
[2022-09-12] MEDS ORDERED: GABAPENTIN 300 MG CAP PO SCH (22:00)
--- NOTE | 2022-09-12 22:08 | HP ---
HISTORY AND PHYSICAL CHIEF COMPLAINT: Lethargy and DKA. HISTORY OF PRESENT ILLNESS: This is another admission for this 27-year-old white male, type 1 insulin-dependent diabetic. He just left the hospital several days ago. He goes out and does not take his insulin and frequently drinks alcohol and then winds up back to the ER. REVIEW OF SYSTEMS: He is lethargic and he is complaining of nausea. Past medical history, family history, personal and social histories are otherwise unremarkable and noncontributory or unchanged. PHYSICAL EXAMINATION: VITAL SIGNS: Blood pressure 145/95 with a pulse of 115, respirations of 38, and he is afebrile. GENERAL: He appeared to be disheveled, dehydrated, and slightly lethargic. HEAD, EARS, EYES, NOSE, MOUTH AND THROAT: Normal except for mucous membranes are dry. NECK: Supple. CHEST: Clear. CARDIAC: Demonstrates sinus tachycardia. ABDOMEN: Flat, soft. Bowel sounds were heard. EXTREMITIES: Normal. IMPRESSION: Diabetic ketoacidosis. PLAN: 1. DKA protocol. 2. Rehydrate. MMODL / IJN: [id number] /
--- NOTE | 2022-09-12 22:36 | PN ---
PROGRESS NOTE DATE OF SERVICE: 09/12/2022 CHIEF COMPLAINT: Diabetic ketoacidosis. HISTORY OF PRESENT ILLNESS: This gentleman's blood sugars are coming down and he is running between 150 and 200. He is awake and he is not vomiting. His blood pressure is high, however. PHYSICAL EXAMINATION: VITAL SIGNS: Blood pressure is 155/92 with a pulse of 86, respirations of 32, and he is afebrile. GENERAL: He appeared to be slender, disheveled, and in no acute distress. HEAD, EARS, EYES, NOSE, MOUTH AND THROAT: Normal. CHEST: Clear. CARDIAC: Normal. ABDOMEN: Soft, nontender. EXTREMITIES: Normal. IMPRESSION: 1. Diabetic ketoacidosis. 2. Hypertension. PLAN: Continue administering insulin to control his diabetes along with increasing fluids and advancing diet and activity. MMODL / IJN: [id number] /
[2022-09-13] MEDS ORDERED: INSULIN DETEMIR (LEVEMIR) 100 UNIT/ML SYR SQ SCH (07:00)
[2022-09-13] MEDS ORDERED: INSULIN ASPART (NovoLOG) 100 UNIT/ML VIAL SQ SCH (07:30)
--- NOTE | 2022-09-15 09:31 | DS ---
DISCHARGE SUMMARY CHIEF COMPLAINT: DKA. HISTORY OF PRESENT ILLNESS AND PHYSICAL EXAMINATION: Details of this man's history and physical can be found in the initial workup. LABORATORY STUDIES: While he was in the hospital, he had laboratory studies, details of which can be found in the laboratory section of his chart. COURSE IN THE HOSPITAL: After admission, he was placed on bedrest, started on intravenous fluids and DKA protocol. His gap closed, he is doing well and then he signed out against medical advice on the . FINAL DIAGNOSES: 1. Diabetic ketoacidosis. 2. Dehydration. 3. Gastroparesis. 4. Diabetic peripheral neuropathy. 5. Uncontrolled type 1 insulin-dependent diabetes mellitus. 6. Depression. OPERATIONS: None. CONSULTATIONS: None. He is improved. MMODL / IJN: [id number] /
== END 2022-09-12 21:45 | disposition left against medical advice (07) | DRG 420 ==
LOC: EC 14:08 → 2SICU 15:39 → 3SCARD 09-12 11:47 → 5NMEDONC 09-12 13:56
PROVIDERS: ADMIT Family Medicine; ATTEND Family Medicine
DX: E10.10 Type 1 diabetes mellitus with ketoacidosis without coma (principal); N17.9 Acute kidney failure, unspecified; E10.42 Type 1 diabetes mellitus with diabetic polyneuropathy; F32.9 Major depressive disorder, single episode, unspecified; I10 Essential (primary) hypertension; K31.84 Gastroparesis; E87.5 Hyperkalemia; F17.290 Nicotine dependence, other tobacco product, uncomplicated; E86.0 Dehydration; F41.9 Anxiety disorder, unspecified; Z53.29 Procedure and treatment not carried out because of patient's decision for other reasons; F41.1 Generalized anxiety disorder; T50.916A Underdosing of multiple unspecified drugs, medicaments and biological substances, initial encounter; Z79.899 Other long term (current) drug therapy; Z79.4 Long term (current) use of insulin; Z59.00 Homelessness unspecified; Z91.51 Personal history of suicidal behavior; Z91.148 Patient's other noncompliance with medication regimen for other reason
CPT/HCPCS: 36415; 80048; 80051; 80053; 80306; 81003; 82009; 82150; 82565; 82803; 82947; 83605; 83690; 84100; 84520; 85025; 93005; 96361; 96374; 96375; 99291

== ENCOUNTER 2022-09-15 09:05 | Inpatient (IN) | payer OTHER ==
[2022-09-15] MEDS ORDERED: INSULIN REGULAR BOLUS (FROM DRIP BAG) IV ONE (09:24)
[2022-09-15] MEDS ORDERED: Magnesium Replacement Protocol 1 EACH MISC MISCELLANE PRN (09:24)
[2022-09-15] MEDS ORDERED: DEXTROSE 50% SYRINGE 50 ML IVP PRN ×2 (09:24)
[2022-09-15] MEDS ORDERED: Potassium Replacement Protocol 1 EACH MISC MISCELLANE PRN (09:24)
[2022-09-15] MEDS ORDERED: SODIUM CHLORIDE 0.9% 1,000 ML IV STA (09:26)
[2022-09-15 09:27] LABS: Glucose,Whole Blood >600 mg/dL (70-110)
[2022-09-15 09:35] LABS: Basophils % (A) 0 %; Eosinophils # (A) 0.1 k/uL (0-0.7); Eosinophils % (A) 0 %; HCT 48.3 % (39.0-53.0); HGB 14.4 gm/dL (13.0-17.5); Hypochromasia Moderate; Lymphocytes # (A) 2.5 k/uL (1.0-4.8); Lymphocytes % (A) 15 %; MCH 31.2 pg (25.0-35.0); MCHC 29.8 g/dL (31.0-37.0); Macrocytosis Slight; Mean Platelet Volume 7.8; Monocytes # (A) 0.4 k/uL (0-1.0); Monocytes % (A) 3 %; Neutrophils # (A) 13.7 k/uL (1.3-7.7); Neutrophils % (A) 81 %; Platelet Count 556 k/uL (150-450); RBC 4.61 m/uL (4.30-5.90); RDW 12.4 % (11.5-15.5); WBC 16.8 k/uL (3.8-10.6)
--- NOTE | 2022-09-15 09:42 | ED ---
General Adult HPI - General Chief complaint: Recheck/Abnormal Lab/Rx Stated complaint: Hyperglycemia Time Seen by Provider: 09/15/22 09:11 Source: EMS Mode of arrival: EMS Limitations: no limitations - History of Present Illness Initial comments: Dictation was produced using [employer] dictation software. please excuse any grammatical, word or spelling errors. Chief Complaint: 27-year-old insulin-dependent diabetic presents to the emerg ency room for DKA History of Present Illness: 27-year-old male is well-known to emergency department. Patient presents emergency department for DKA. Patient is well- known to emergency department he is here almost every other week with DKA. Patient insulin-dependent diabetic. History of noncompliance. Patient unable to provide his present illness this time due to medical status. EMS brought the patient in Unable to obtain ROS at this time secondary to mental status - Related Data Home Medications Medication Instructions Recorded Confirmed INSULIN ASPART (NovoLOG) [NovoLOG 10 unit SQ AC-TID 06/29/21 09/11/22 (formulary)] Gabapentin 600 mg PO TID 12/19/21 09/11/22 Insulin Detemir (Levemir) [Levemir] 25 unit SQ DAILY 04/11/22 09/11/22 Mirtazapine [Remeron] 45 mg PO HS 09/03/22 09/11/22 Allergies Allergy/AdvReac Type Severity Reaction Status Date / Time No Known Allergies Allergy Verified 09/15/22 09:19 Review of Systems ROS Statement: Those systems with pertinent positive or pertinent negative responses have been documented in the HPI. ROS Other: All systems not noted in ROS Statement are negative. Past Medical History Past Medical History: Asthma, Diabetes Mellitus, Neurologic Disorder, Skin Disorder Additional Past Medical History / Comment(s): IDDM type I, neuropathy bilateral feet, DKA, eczema. History of Any Multi-Drug Resistant Organisms: None Reported Past Surgical History: Adenoidectomy Additional Past Surgical History / Comment(s): 2002 Past Anesthesia/Blood Transfusion Reactions: No Reported Reaction Past Psychological History: Anxiety, Depression Smoking Status: Current every day smoker, Vaper Past Alcohol Use History: None Reported Past Drug Use History: None Reported - Past Family History Mother Family Medical History: CVA/TIA Additional Family Medical History / Comment(s): TIA Father Family Medical History: Hyperlipidemia, Hypertension Additional Family Medical History / Comment(s): . General Exam - General Exam Comments Initial Comments: PHYSICAL EXAM: General Impression: Close mild respirations, lethargic, smells of acetone HEENT: Normocephalic atraumatic, extra-ocular movements intact, pupils equal and reactive to light bilaterally, dry mucous membranes Cardiovascular: Heart regular rate and rhythm Chest: Dyspneic Abdomen: abdomen soft, non-tender, non-distended, no organomegaly Musculoskeletal: Pulses present and equal in all extremities, no peripheral edema Motor: no focal deficits noted Neurological: Moves all extremities grossly Skin: Intact with no visualized rashes Limitations: no limitations Course Vital Signs 09/15/22 09/15/22 09/15/22 09:09 09:30 10:00 Pulse Rate 130 H 130 H 128 H Respiratory 30 H 28 H 36 H Rate Blood Pressure 117/68 117/68 117/67 O2 Sat by Pulse 100 92 L 96 Oximetry 09/15/22 09/15/22 10:30 11:00 Pulse Rate 120 H 122 H Respiratory 38 H 29 H Rate Blood Pressure 119/75 115/76 O2 Sat by Pulse 97 94 L Oximetry EKG Findings - EKG Comments: EKG Findings:: My EKG interpretation: Ventricular rate 120, sinus tachycardia,. Interval 137, QRS 109, QTc 38. No RI prolongation, no QTC prolongation. Hyperacute T waves in precordial leads Medical Decision Making - Medical Decision Making Was pt. sent in by a medical professional or institution (, PA, TECHNICAL TRANSLATOR, urgent care, hospital, or senior living...) When possible be specific @ -No Did you speak to anyone other than the patient for history (EMS, parent, family, police, friend...)? What history was obtained from this source @ -No Did you review nursing and triage notes (agree or disagree)? Why? @ -I reviewed and agree with nursing and triage notes Were old charts reviewed (outside hosp., previous admission, EMS record, old EKG, old radiological studies, urgent care reports/EKG's, senior living records)? Report findings @ -Prior documentation reviewed showing that patient had been admitted occasions for DKA. Differential Diagnosis (chest pain, altered mental status, abdominal pain women, abdominal pain men, vaginal bleeding, musculoskeletal, weakness, fever, dyspnea, syncope, headache, dizziness, GI bleed, back pain, seizure, CVA, palpatations, mental health)? @ -Differential Altered Mental Status: Hypoglycemia, DKA, hypercapnia, ETOH, overdose, CO poisoning, trauma, myxedema coma, HTN encephalopathy, infection, encephalitis, psychosis, intercranial hemorrhage, hepatic encephalopathy, meningitis, CVA, this is not meant to be an all-inclusive list EKG interpreted by me (3pts min.). @ -See above X-rays interpreted by me (1pt min.). @ -None done CT interpreted by me (1pt min.). @ -None done U/S interpreted by me (1pt. min.). @ -None done What testing was considered but not performed or refused? (CT, X-rays, U/S, labs)? Why? @ -None What meds were considered but not given or refused? Why? @ -None Did you discuss the management of the patient with other professionals (professionals i.e. , PA, TECHNICAL TRANSLATOR, lab, RT, psych nurse, social insurance specialist, satin finisher, teacher, senior officer, outsole caser)? Give summary @ -disussed with [facility] for ICU admission Was smoking cessation discussed for >3mins.? @ -No Was critical care preformed (if so, how long)? @ -Yes, 72 minutes Were there social determinants of health that impacted care today? How? (Homelessness, low income, unemployed, alcoholism, drug addiction, transportation, low edu. Level, literacy, decrease access to med. care, group home, rehab)? @ -No Was there de-escalation of care discussed even if they declined (Discuss DNR or withdrawal of care, Hospice)? DNR status @ -No What co-morbidities impacted this encounter? (DM, HTN, Smoking, COPD, CAD, Cancer, CVA, ARF, Chemo, Hep., AIDS, mental health diagnosis, sleep apnea, morbid obesity)? @ -Poorly controlled diabetes mellitus Was patient admitted / discharged? Hospital course, mention meds given and route, prescriptions, significant lab abnormalities, going to OR and other pe rtinent info. @ -27-year-old male yet again presents to the emergency department for diabetic ketoacidosis. Bicarb was less than 5. Potassium 6.8. Glucose is 795. White count of 16.8. Acetone positive. Patient again will be admitted for DKA treatment. Undiagnosed new problem with uncertain prognosis? @ -No Drug Therapy requiring intensive monitoring for toxicity (Heparin, Nitro, Insulin, Cardizem)? @ -No Were any procedures done? @ -No Diagnosis/symptom? Acute, or Chronic, or Acute on Chronic? Uncomplicated (without systemic symptoms) or Complicated (systemic symptoms)? @ -1.Acute complicated DKA Side effects of treatment? @ -No Exacerbation, Progression, or Severe Exacerbation? @ -Recurrence, exacerbation Poses a threat to life or bodily function? How? (Chest pain, [place], [place], pneumonia, PE, COPD, DKA, ARF, appy, cholecystitis, CVA, Diverticulitis, Homicidal, Suicidal, threat to staff... and all critical care pts) @ -yes - Lab Data Result diagrams: 09/15/22 09:27 09/15/22 09:27 Lab Results 09/15/22 09/15/22 09/15/22 Range/Units 09:24 09:27 09:27 WBC 16.8 H (3.8-10.6) k/uL RBC 4.61 (4.30-5.90) m/uL Hgb 14.4 (13.0-17.5) gm/dL Hct 48.3 (39.0-53.0) % MCV 104.8 H D (80.0-100.0) fL MCH 31.2 (25.0-35.0) pg MCHC 29.8 L (31.0-37.0) g/dL RDW 12.4 (11.5-15.5) % Plt Count 556 H (150-450) k/uL MPV 7.8 Neutrophils % 81 % Lymphocytes % 15 % Monocytes % 3 % Eosinophils % 0 % Basophils % 0 % Neutrophils # 13.7 H (1.3-7.7) k/uL Lymphocytes # 2.5 (1.0-4.8) k/uL Monocytes # 0.4 (0-1.0) k/uL Eosinophils # 0.1 (0-0.7) k/uL Basophils # 0.0 (0-0.2) k/uL Hypochromasia Moderate Macrocytosis Slight Sodium 137 (137-145) mmol/L Potassium 6.8 H* (3.5-5.1) mmol/L Chloride 96 L (98-107) mmol/L Carbon Dioxide <5 L* (22-30) mmol/L Anion Gap mmol/L BUN 21 H (9-20) mg/dL Creatinine 1.43 H (0.66-1.25) mg/dL Est GFR (CKD-EPI)AfAm 79 (>60 ml/min/1.73 sqM) Est GFR (CKD-EPI)NonAf 68 (>60 ml/min/1.73 sqM) Glucose 795 H* (74-99) mg/dL POC Glucose (mg/dL) >600 H (70-110) mg/dL POC Glu Sagger Preparer ID Schoof, Selena Acetone, Qual Positive (Negative) 09/15/22 Range/Units 10:57 WBC (3.8-10.6) k/uL RBC (4.30-5.90) m/uL Hgb (13.0-17.5) gm/dL Hct (39.0-53.0) % MCV (80.0-100.0) fL MCH (25.0-35.0) pg MCHC (31.0-37.0) g/dL RDW (11.5-15.5) % Plt Count (150-450) k/uL MPV Neutrophils % % Lymphocytes % % Monocytes % % Eosinophils % % Basophils % % Neutrophils # (1.3-7.7) k/uL Lymphocytes # (1.0-4.8) k/uL Monocytes # (0-1.0) k/uL Eosinophils # (0-0.7) k/uL Basophils # (0-0.2) k/uL Hypochromasia Macrocytosis Sodium (137-145) mmol/L Potassium (3.5-5.1) mmol/L Chloride (98-107) mmol/L Carbon Dioxide (22-30) mmol/L Anion Gap mmol/L BUN (9-20) mg/dL Creatinine (0.66-1.25) mg/dL Est GFR (CKD-EPI)AfAm (>60 ml/min/1.73 sqM) Est GFR (CKD-EPI)NonAf (>60 ml/min/1.73 sqM) Glucose (74-99) mg/dL POC Glucose (mg/dL) >600 H (70-110) mg/dL POC Glu Sagger Preparer ID Schoof, Selena Acetone, Qual (Negative) Disposition Clinical Impression: DKA (diabetic ketoacidosis) Disposition: ADMITTED IP TO THIS [facility] Condition: Critical Referrals: Brown Valenzuela MD [Primary Care Provider] - 1-2 days Decision Time: 11:12
[2022-09-15 09:49] LABS: MCV 104.8 fL (80.0-100.0)
[2022-09-15 09:52] LABS: African American GFR (CKD) 79 (>60 ml/min/1.73 sqM); Blood Urea Nitrogen 21 mg/dL (9-20); Chloride 96 mmol/L (98-107); Non-African American GFR(CKD) 68 (>60 ml/min/1.73 sqM); Sodium 137 mmol/L (137-145)
[2022-09-15] MEDS ORDERED: INSULIN REGULAR 100 UNIT in SODIUM CHLORIDE 0.9% 100 ML IV SCH (10:00)
[2022-09-15] MEDS: SODIUM CHLORIDE 0.9% 1,000 ML IV SCH ×3 (10:00→19:00)
[2022-09-15 10:04] LABS: Carbon Dioxide <5 mmol/L (22-30); Potassium 6.8 mmol/L (3.5-5.1)
[2022-09-15 10:05] LABS: Glucose 795 mg/dL (74-99)
[2022-09-15 11:00] LABS: Glucose,Whole Blood >600 mg/dL (70-110)
[2022-09-15] MEDS ORDERED: NALOXONE 0.4 MG/ML 1 ML VIAL IV PRN (11:08)
[2022-09-15 12:01] LABS: Glucose,Whole Blood 540 mg/dL (70-110)
[2022-09-15] MEDS ORDERED: SODIUM BICARB 8.4% 50 ML SYR (1 MEQ/ML) IV STA (12:21)
--- NOTE | 2022-09-15 12:21 | P.CNPUL ---
History of Present Illness Consult date: 09/15/22 Chief complaint: Altered mentation History of present illness: 27-year-old male patient type I diabetic, came into the emergency for DKA. He was discharged from the hospital a few days ago. Does not take his insulin. Is homeless. He came into the hospital with altered mentation. He has a serum bicarb of less than 5, anion gap very high, potassium of 6.8, blood sugar 795, acute kidney injury with a creatinine of 1.4, WBC count 8.8. Given IV fluids and started on an insulin drip. Acetone is positive. Review of Systems ROS unobtainable: due to mental status Past Medical History Past Medical History: Asthma, Diabetes Mellitus, Neurologic Disorder, Skin Disorder Additional Past Medical History / Comment(s): IDDM type I, neuropathy bilateral feet, DKA, eczema. History of Any Multi-Drug Resistant Organisms: None Reported Past Surgical History: Adenoidectomy Additional Past Surgical History / Comment(s): 2002 Past Anesthesia/Blood Transfusion Reactions: No Reported Reaction Past Psychological History: Anxiety, Depression Smoking Status: Current every day smoker, Vaper Past Alcohol Use History: None Reported Past Drug Use History: None Reported - Past Family History Mother Family Medical History: CVA/TIA Additional Family Medical History / Comment(s): TIA Father Family Medical History: Hyperlipidemia, Hypertension Additional Family Medical History / Comment(s): . Medications and Allergies Home Medications Medication Instructions Recorded Confirmed Type INSULIN ASPART (NovoLOG) [NovoLOG 10 unit SQ AC-TID 06/29/21 09/15/22 History (formulary)] Gabapentin 600 mg PO TID 12/19/21 09/15/22 History Insulin Detemir (Levemir) [Levemir] 25 unit SQ DAILY 04/11/22 09/15/22 History Mirtazapine [Remeron] 45 mg PO HS 09/03/22 09/15/22 History Allergies Allergy/AdvReac Type Severity Reaction Status Date / Time No Known Allergies Allergy Verified 09/15/22 11:46 Physical Exam Vitals: Vital Signs Pulse Resp BP Pulse Ox 09/15/22 11:00 122 H 29 H 115/76 94 L 09/15/22 10:30 120 H 38 H 119/75 97 09/15/22 10:00 128 H 36 H 117/67 96 09/15/22 09:30 130 H 28 H 117/68 92 L 09/15/22 09:09 130 H 30 H 117/68 100 Intake and Output 09/14/22 09/15/22 09/15/22 22:59 06:59 14:59 Intake Total 5.131 Balance 5.131 Intake: Intake, IV Titration 5.131 Amount Insulin Regular 100 unit 5.131 In Sodium Chloride 0.9% 100 ml @ 0.1 UNITS/KG/HR 5.498 mls/hr IV .[id number] REPLACED BY [facility] Rx#:[id number] Other: Weight 54.431 kg GENERAL EXAM: Alert, pleasant, thin 26-year-old male, on room air,patient seems quite dehydrated, not collaborating well with with examination, not answering questions, and he does have dry mucous membranes. HEAD: Normocephalic. EYES: Normal reaction of pupils, equal size. NOSE: Clear with pink turbinates. THROAT: No erythema or exudates. NECK: No masses, no JVD. CHEST: No chest wall deformity. LUNGS: Equal air entry with no crackles, wheeze, rhonchi or dullness. CVS: S1 and S2 normal with no audible murmur, regular rhythm.the patient is sinus tachycardia ABDOMEN: No hepatosplenomegaly, normal bowel sounds, no guarding or rigidity. SPINE: No scoliosis or deformity SKIN: No rashes CENTRAL NERVOUS SYSTEM: No focal deficits, tone is normal in all 4 extremities. EXTREMITIES: There is no peripheral edema. No clubbing, no cyanosis. Peripheral pulses are intact. Results - Laboratory Findings CBC and BMP: 09/15/22 09:27 09/15/22 09:27 Abnormal lab findings: Abnormal Labs 09/15/22 09/15/22 09/15/22 09:24 09:27 09:27 WBC 16.8 H MCV 104.8 H D MCHC 29.8 L Plt Count 556 H Neutrophils # 13.7 H Potassium 6.8 H* Chloride 96 L Carbon Dioxide <5 L* BUN 21 H Creatinine 1.43 H Glucose 795 H* POC Glucose (mg/dL) >600 H 09/15/22 09/15/22 10:57 12:00 WBC MCV MCHC Plt Count Neutrophils # Potassium Chloride Carbon Dioxide BUN Creatinine Glucose POC Glucose (mg/dL) >600 H 540 H Assessment and Plan Plan: Acute diabetic ketoacidosis, secondary to noncompliance with medications. Patient has had multiple episodes of DKA, last hospitalization was on 09/11/2022, treated and the patient was discharged home on 09/12/2022. Anion gap metabolic acidosis, secondary to DKA. Type 1 diabetes mellitus, poor compliance Acute kidney injury secondary to above, likely on the basis of intravascular volume depletion/dehydration acute hyperkalemia secondary to above, the patient has hyperacute T waves Diabetic neuropathy History of ongoing tobacco use/vaping. History of previous drug overdose and suicide attempt. History of major depression, and generalized anxiety. History of chronic marijuana use. Homelessness Plan We'll manage the patient's based on the DKA protocol Already given 2 L of fluid normal saline Continue insulin drip Electrolytes every 4 hours Blood sugars on an hourly basis IV Protonix We'll try to close the gap within the next 24 hours based on underlying hyperkalemia, we'll give the patient calcium chloride, total dose of 50 mEq of sodium bicarbonate (x2) and continue the insulin management. Repeat K Needs intensive care unit monitoring
[2022-09-15] MEDS ORDERED: CALCIUM GLUCONATE IN NACL 2 GM in SALINE 1 100ML.BAG IVPB ONE (13:00)
[2022-09-15 13:17] LABS: VBG PH 7.13 (7.31-7.41)
[2022-09-15 13:27] LABS: Glucose,Whole Blood 320 mg/dL (70-110)
[2022-09-15 13:32] LABS: Potassium 5.3 mmol/L (3.5-5.1)
[2022-09-15 14:12] LABS: Glucose,Whole Blood 250 mg/dL (70-110)
[2022-09-15] MEDS: D5-0.45% NACL WITH KCL 20MEQ/L 1,000 ML IV SCH ×2 (14:31→22:11)
[2022-09-15 15:13] LABS: Glucose,Whole Blood 181 mg/dL (70-110)
[2022-09-15 16:12] LABS: Glucose,Whole Blood 157 mg/dL (70-110)
[2022-09-15 17:21] LABS: Glucose,Whole Blood 107 mg/dL (70-110)
[2022-09-15 18:01] LABS: Glucose,Whole Blood 98 mg/dL (70-110)
[2022-09-15 18:44] LABS: Glucose,Whole Blood 161 mg/dL (70-110)
[2022-09-15 18:48] LABS: African American GFR (CKD) >90 (>60 ml/min/1.73 sqM); Anion Gap 14 mmol/L; Blood Urea Nitrogen 20 mg/dL (9-20); Carbon Dioxide 19 mmol/L (22-30); Chloride 113 mmol/L (98-107); Glucose 110 mg/dL (74-99); Non-African American GFR(CKD) >90 (>60 ml/min/1.73 sqM); Phosphorus 1.9 mg/dL (2.5-4.5); Potassium 4.5 mmol/L (3.5-5.1); Sodium 146 mmol/L (137-145)
[2022-09-15 19:11] LABS: Glucose,Whole Blood 153 mg/dL (70-110)
[2022-09-15 20:01] LABS: Glucose,Whole Blood 162 mg/dL (70-110)
[2022-09-15 21:05] LABS: Glucose,Whole Blood 168 mg/dL (70-110)
[2022-09-15 22:14] LABS: Glucose,Whole Blood 172 mg/dL (70-110)
[2022-09-15 23:10] LABS: Glucose,Whole Blood 161 mg/dL (70-110)
[2022-09-15 23:51] LABS: African American GFR (CKD) >90 (>60 ml/min/1.73 sqM); Anion Gap 11 mmol/L; Blood Urea Nitrogen 18 mg/dL (9-20); Carbon Dioxide 21 mmol/L (22-30); Chloride 110 mmol/L (98-107); Glucose 166 mg/dL (74-99); Non-African American GFR(CKD) >90 (>60 ml/min/1.73 sqM); Potassium 4.5 mmol/L (3.5-5.1); Sodium 142 mmol/L (137-145)
[2022-09-16] MEDS ORDERED: ONDANSETRON 4 MG/2 ML VIAL IVP PRN (00:05)
[2022-09-16] MEDS ORDERED: INSULIN NPH 100 UNIT/ML 10 ML VIAL SQ ONE (00:09)
[2022-09-16 02:21] LABS: Glucose,Whole Blood 230 mg/dL (70-110)
[2022-09-16] MEDS: INSULIN ASPART (NovoLOG) 100 UNIT/ML VIAL SQ SCH ×8 (02:23→20:30)
[2022-09-16] MEDS: D5-0.45% NACL WITH KCL 20MEQ/L 1,000 ML IV SCH (04:13)
[2022-09-16 05:00] LABS: African American GFR (CKD) >90 (>60 ml/min/1.73 sqM); Anion Gap 17 mmol/L; Blood Urea Nitrogen 16 mg/dL (9-20); Calcium 8.9 mg/dL (8.4-10.2); Carbon Dioxide 17 mmol/L (22-30); Chloride 110 mmol/L (98-107); Glucose 203 mg/dL (74-99); Non-African American GFR(CKD) >90 (>60 ml/min/1.73 sqM); Potassium 4.4 mmol/L (3.5-5.1); Sodium 144 mmol/L (137-145)
[2022-09-16] MEDS: SODIUM CHLORIDE 0.9% 1,000 ML IV SCH ×5 (06:55→23:29)
[2022-09-16 07:05] LABS: Glucose,Whole Blood 316 mg/dL (70-110)
[2022-09-16] MEDS: INSULIN DETEMIR (LEVEMIR) 100 UNIT/ML SYR SQ SCH (08:16)
[2022-09-16 11:18] LABS: Glucose,Whole Blood 275 mg/dL (70-110)
--- NOTE | 2022-09-16 12:13 | P.PN ---
Subjective Progress Note Date: 09/16/22 The patient is seen today in 09/16/2022 in follow-up on the regular medical floor. He is currently resting comfortably in bed. Awake and alert in no acute distress. Maintaining O2 saturations in the 90s on room air. He's been admitted again for diabetic ketoacidosis episode. He is currently receiving D5.45 normal saline at 150 MLS per hour. Sodium 144. Potassium 4.4. Bicarb 17. Anion gap 17. BUN 16. Creatinine 0.68. Glucose 203. Objective - Vital Signs Vital signs: Vital Signs Temp 98.0 F 09/16/22 07:06 Pulse 107 H 09/16/22 07:06 Resp 16 09/16/22 07:06 BP 126/89 09/16/22 07:06 Pulse Ox 99 09/16/22 07:06 FiO2 Intake & Output 09/15/22 09/16/22 09/16/22 18:59 06:59 18:59 Intake Total 57.472 1350 Output Total 450 Balance 57.472 900 Weight 54.431 kg 61 kg Intake: Intake, IV Titration 57.472 1350 Amount D5-0.45% NaCl with KCl 1350 20Meq/l 1,000 ml @ 150 mls/hr IV .[id number] [facility] Rx# :[id number] Insulin Regular 100 unit 57.472 In Sodium Chloride 0.9% 100 ml @ 0.1 UNITS/KG/HR 5.498 mls/hr IV .[id number] [facility] Rx#:[id number] Output: Urine 450 Other: Voiding Method Urinal # Voids 0 - Exam GENERAL EXAM: Alert, thin 27-year-old male patient, on room air, comfortable in no apparent distress. HEAD: Normocephalic. EYES: Normal reaction of pupils, equal size. NOSE: Clear with pink turbinates. THROAT: No erythema or exudates. NECK: No masses, no JVD. CHEST: No chest wall deformity. LUNGS: Equal air entry with no crackles, wheeze, rhonchi or dullness. CVS: S1 and S2 normal with no audible murmur, regular rhythm. ABDOMEN: No hepatosplenomegaly, normal bowel sounds, no guarding or rigidity. SPINE: No scoliosis or deformity SKIN: No rashes CENTRAL NERVOUS SYSTEM: No focal deficits, tone is normal in all 4 extremities. EXTREMITIES: There is no peripheral edema. No clubbing, no cyanosis. Peripheral pulses are intact. - Labs CBC & Chem 7: 09/15/22 09:27 09/16/22 04:26 Labs: Abnormal Lab Results - Last 24 Hours (Table) 09/15/22 09/15/22 09/15/22 Range/Units 13:00 13:05 13:24 VBG pH 7.13 L* (7.31-7.41) VBG pCO2 17 L* (37-51) mmHg VBG HCO3 6 L* (24-28) mmol/L Sodium 147 H (137-145) mmol/L Potassium 5.3 H (3.5-5.1) mmol/L Chloride 108 H (98-107) mmol/L Carbon Dioxide 7 L* (22-30) mmol/L BUN 22 H (9-20) mg/dL Creatinine 1.28 H (0.66-1.25) mg/dL Glucose 397 H (74-99) mg/dL POC Glucose (mg/dL) 320 H (70-110) mg/dL Phosphorus 6.0 H (2.5-4.5) mg/dL 09/15/22 09/15/22 09/15/22 Range/Units 14:00 15:01 16:02 VBG pH (7.31-7.41) VBG pCO2 (37-51) mmHg VBG HCO3 (24-28) mmol/L Sodium (137-145) mmol/L Potassium (3.5-5.1) mmol/L Chloride (98-107) mmol/L Carbon Dioxide (22-30) mmol/L BUN (9-20) mg/dL Creatinine (0.66-1.25) mg/dL Glucose (74-99) mg/dL POC Glucose (mg/dL) 250 H 181 H 157 H (70-110) mg/dL Phosphorus (2.5-4.5) mg/dL 09/15/22 09/15/22 09/15/22 Range/Units 17:45 18:31 18:59 VBG pH (7.31-7.41) VBG pCO2 (37-51) mmHg VBG HCO3 (24-28) mmol/L Sodium 146 H (137-145) mmol/L Potassium (3.5-5.1) mmol/L Chloride 113 H (98-107) mmol/L Carbon Dioxide 19 L (22-30) mmol/L BUN (9-20) mg/dL Creatinine (0.66-1.25) mg/dL Glucose 110 H (74-99) mg/dL POC Glucose (mg/dL) 161 H 153 H (70-110) mg/dL Phosphorus 1.9 L (2.5-4.5) mg/dL 09/15/22 09/15/22 09/15/22 Range/Units 20:00 21:03 22:13 VBG pH (7.31-7.41) VBG pCO2 (37-51) mmHg VBG HCO3 (24-28) mmol/L Sodium (137-145) mmol/L Potassium (3.5-5.1) mmol/L Chloride (98-107) mmol/L Carbon Dioxide (22-30) mmol/L BUN (9-20) mg/dL Creatinine (0.66-1.25) mg/dL Glucose (74-99) mg/dL POC Glucose (mg/dL) 162 H 168 H 172 H (70-110) mg/dL Phosphorus (2.5-4.5) mg/dL 09/15/22 09/15/22 09/16/22 Range/Units 23:09 23:28 02:20 VBG pH (7.31-7.41) VBG pCO2 (37-51) mmHg VBG HCO3 (24-28) mmol/L Sodium (137-145) mmol/L Potassium (3.5-5.1) mmol/L Chloride 110 H (98-107) mmol/L Carbon Dioxide 21 L (22-30) mmol/L BUN (9-20) mg/dL Creatinine (0.66-1.25) mg/dL Glucose 166 H (74-99) mg/dL POC Glucose (mg/dL) 161 H 230 H (70-110) mg/dL Phosphorus (2.5-4.5) mg/dL 09/16/22 09/16/22 09/16/22 Range/Units 04:26 07:03 11:17 VBG pH (7.31-7.41) VBG pCO2 (37-51) mmHg VBG HCO3 (24-28) mmol/L Sodium (137-145) mmol/L Potassium (3.5-5.1) mmol/L Chloride 110 H (98-107) mmol/L Carbon Dioxide 17 L (22-30) mmol/L BUN (9-20) mg/dL Creatinine (0.66-1.25) mg/dL Glucose 203 H (74-99) mg/dL POC Glucose (mg/dL) 316 H 275 H (70-110) mg/dL Phosphorus (2.5-4.5) mg/dL Assessment and Plan Assessment: Acute diabetic ketoacidosis, secondary to noncompliance with medications. Patient has had multiple episodes of DKA, last hospitalization was on 09/11/2022, treated and the patient was discharged home on 09/12/2022. Readmitted here again on 09/15/2022. Anion gap metabolic acidosis, secondary to DKA. Current anion gap 17 Type 1 diabetes mellitus, poor compliance Acute kidney injury secondary to above, likely on the basis of intravascular volume depletion/dehydration. Recovered Acute hyperkalemia secondary to above, the patient has hyperacute T waves. Corrected and current potassium 4.4. Diabetic neuropathy History of ongoing tobacco use/vaping. History of previous drug overdose and suicide attempt. History of major depression, and generalized anxiety. History of chronic marijuana use. Homelessness Plan The patient was seen and evaluated Medications and labs reviewed Discontinue D5.45 normal saline Add 0.9% normal saline at 125 ML's per hour Educated regarding the importance of medication compliance We will continue to follow I have personally seen and examined the patient, performed the documentation and the assessment and plan as written. Number of minutes spent on the visit: 10.
[2022-09-16 13:01] VITALS: BMI 16.8
[2022-09-16 17:27] LABS: Glucose,Whole Blood 123 mg/dL (70-110)
[2022-09-16 19:49] LABS: Glucose,Whole Blood 128 mg/dL (70-110)
--- NOTE | 2022-09-16 23:02 | HP ---
HISTORY AND PHYSICAL CHIEF COMPLAINT: Diabetic ketoacidosis. HISTORY OF PRESENT ILLNESS: This is another of many admissions to the hospital for this young male with type 1 insulin-dependent diabetes mellitus. He is very noncompliant. He comes into the hospital with DKA, reasonably cleaned out. Once his gap is closed and sugar goes down, he signed out AMA. He goes home and then does not take insulin. He came back this time again with a blood sugar of around 700. REVIEW OF SYSTEMS: He is lethargic and nauseated. Past medical history, family history, and personal and social histories are unchanged from recent admitting and discharge summaries. PHYSICAL EXAMINATION: VITAL SIGNS: Blood pressure is 126/74 with a pulse of 135, respirations of 38. GENERAL: He appeared to be lethargic and dehydrated. HEAD, EARS, EYES, NOSE, MOUTH AND THROAT: Otherwise normal. CHEST: Clear. CARDIAC: Demonstrated tachycardia. No murmurs or extra sounds. ABDOMEN: Flat, soft, nontender. Bowel sounds are present. EXTREMITIES: Normal. NEUROLOGIC: He is lethargic. IMPRESSION: 1. Diabetic ketoacidosis. 2. Peripheral neuropathy. 3. Type 1 insulin-dependent diabetes mellitus. 4. Noncompliance. 5. Depression. PLAN: 1. Bedrest. 2. IV fluids. 3. Insulin drip. MMODL / IJN: [id number] /
[2022-09-17] MEDS: INSULIN ASPART (NovoLOG) 100 UNIT/ML VIAL SQ SCH ×7 (01:59→17:34)
[2022-09-17 02:00] LABS: Glucose,Whole Blood 172 mg/dL (70-110)
[2022-09-17] MEDS: SODIUM CHLORIDE 0.9% 1,000 ML IV SCH ×2 (06:06→17:30)
[2022-09-17 07:09] LABS: Glucose,Whole Blood 241 mg/dL (70-110)
[2022-09-17 07:33] VITALS: RESP 20
[2022-09-17] MEDS: INSULIN DETEMIR (LEVEMIR) 100 UNIT/ML SYR SQ SCH (08:19)
[2022-09-17 11:29] LABS: Glucose,Whole Blood 168 mg/dL (70-110)
[2022-09-17 11:54] VITALS: BP 129/91; PULSE 74; TEMP 98
[2022-09-17 17:33] LABS: Glucose,Whole Blood 159 mg/dL (70-110)
--- NOTE | 2022-09-20 15:34 | PN ---
PROGRESS NOTE DATE OF SERVICE: 09/16/2022 CHIEF COMPLAINT: DKA. HISTORY OF PRESENT ILLNESS: This gentleman's blood sugars are coming down. He is not vomiting. He is awake and alert. PHYSICAL EXAMINATION: CHEST: Clear. CARDIAC: Normal. ABDOMEN: Soft and nontender. VITAL SIGNS: Normal. IMPRESSION: 1. Diabetic ketoacidosis. 2. Dehydration. 3. Depression. PLAN: Continue with IV fluids, rehydration, and management of his blood sugars before he is discharged. MMODL / IJN: [id number] /
--- NOTE | 2022-09-20 15:55 | DS ---
DISCHARGE SUMMARY CHIEF COMPLAINT: DKA. HISTORY OF PRESENT ILLNESS AND PHYSICAL EXAMINATION: Details of this man's history and physical can be found in the initial workup. LABORATORY STUDIES: While he was in the hospital, he had laboratory studies, details of which can be found in the laboratory section of his chart. COURSE IN THE HOSPITAL: After admission, he was placed on bedrest, started on intravenous fluids and management of his DKA. As usual, his sugars came down, and his gap closed. After that, his activity was increased, and he was doing well. It was felt that he could be discharged, and he will go home on his usual activity, diet, and medications, and he will be followed up in the office if his sugars nicolas. FINAL DIAGNOSES: 1. Diabetic ketoacidosis. 2. Dehydration. 3. Uncontrolled type 1 insulin-dependent diabetes mellitus. 4. Diabetic peripheral neuropathy. 5. Depression. OPERATIONS: None. CONSULTATION: None. CONDITION: He is improved. MMODL / TRAMN: [id number] /
== END 2022-09-17 18:16 | disposition home or self-care (01) | DRG 420 ==
LOC: EC 09:05 → 2SICU 11:08 → 5NMEDONC 09-16 06:33
PROVIDERS: ADMIT Family Medicine; ATTEND Family Medicine
DX: E10.10 Type 1 diabetes mellitus with ketoacidosis without coma (principal); N17.9 Acute kidney failure, unspecified; E10.42 Type 1 diabetes mellitus with diabetic polyneuropathy; J45.909 Unspecified asthma, uncomplicated; F32.9 Major depressive disorder, single episode, unspecified; Z79.4 Long term (current) use of insulin; T38.3X6D Underdosing of insulin and oral hypoglycemic [antidiabetic] drugs, subsequent encounter; Z91.148 Patient's other noncompliance with medication regimen for other reason; Z28.310 Unvaccinated for COVID-19; E87.5 Hyperkalemia; E86.0 Dehydration; L30.9 Dermatitis, unspecified; F41.1 Generalized anxiety disorder; R00.0 Tachycardia, unspecified; U07.0 Vaping-related disorder; F17.200 Nicotine dependence, unspecified, uncomplicated; F12.90 Cannabis use, unspecified, uncomplicated; Z59.00 Homelessness unspecified; Z91.51 Personal history of suicidal behavior; Z79.899 Other long term (current) drug therapy
CPT/HCPCS: 36415; 80048; 80051; 82009; 82565; 82803; 82947; 84100; 84520; 85025; 93005; 96361; 96365; 96375; 99291

== ENCOUNTER 2022-09-29 01:55 | Inpatient (IN) | payer MEDICAID, OTHER ==
[2022-09-29 02:37] LABS: Glucose,Whole Blood 284 mg/dL (70-110)
--- NOTE | 2022-09-29 02:39 | ED ---
Psych HPI - General Chief Complaint: Psychiatric Symptoms Stated Complaint: Mental health Time Seen by Provider: 09/29/22 02:15 Source: patient Mode of arrival: ambulatory - History of Present Illness Initial Comments: This patient is 27-year-old man presenting with worsening of his underlying mood and now for past days having persistent thoughts of suicide. MD Complaint: suicidal ideation, feels depressed -: week(s) Associated Psychiatric Symptoms: depression, suicidal ideation History of same: Yes Quality: getting worse Improves With: none Worsens With: none Associated Symptoms: denies other symptoms - Related Data Home Medications Medication Instructions Recorded Confirmed INSULIN ASPART (NovoLOG) [NovoLOG 10 unit SQ AC-TID 06/29/21 09/22/22 (formulary)] Previous Rx's Medication Instructions Recorded Gabapentin 600 mg PO TID 14 Days #42 tab 10/03/22 INSULIN ASPART (NovoLOG) [NovoLOG 6 unit SQ AC-TID each 10/03/22 (formulary)] Insulin Detemir (Levemir) [Levemir] 28 unit SQ DAILY@0700 30 Days #1 10/03/22 each [place] Carbonate 150 mg PO BID 30 Days #60 cap 10/03/22 Losartan [Cozaar] 50 mg PO DAILY 30 Days #30 tab 10/03/22 Mirtazapine [Remeron] 7.5 mg PO HS 30 Days #15 tab 10/03/22 buPROPion XL [Wellbutrin XL] 300 mg PO DAILY 30 Days #30 tab 10/03/22 Allergies Allergy/AdvReac Type Severity Reaction Status Date / Time No Known Allergies Allergy Verified 09/29/22 04:42 Review of Systems ROS Statement: Those systems with pertinent positive or pertinent negative responses have been documented in the HPI. ROS Other: All systems not noted in ROS Statement are negative. Constitutional: Denies: fever Respiratory: Denies: cough, dyspnea Cardiovascular: Denies: chest pain, palpitations Gastrointestinal: Denies: abdominal pain, vomiting, diarrhea Genitourinary: Denies: dysuria, hematuria Musculoskeletal: Denies: back pain Skin: Denies: rash Neurological: Denies: headache, weakness Psychiatric: Reports: depression, suicidal thoughts. Denies: auditory hallucinations, visual hallucinations, homicidal thoughts Past Medical History Past Medical History: Asthma, Diabetes Mellitus, Neurologic Disorder, Skin Disorder Additional Past Medical History / Comment(s): IDDM type I, neuropathy bilateral feet, DKA, eczema. History of Any Multi-Drug Resistant Organisms: None Reported Past Surgical History: Adenoidectomy Additional Past Surgical History / Comment(s): 2002 Past Anesthesia/Blood Transfusion Reactions: No Reported Reaction Past Psychological History: Anxiety, Depression Smoking Status: Current every day smoker, Vaper Past Alcohol Use History: None Reported Past Drug Use History: None Reported - Past Family History Mother Family Medical History: CVA/TIA Additional Family Medical History / Comment(s): TIA Father Family Medical History: Hyperlipidemia, Hypertension Additional Family Medical History / Comment(s): . General Exam Limitations: no limitations General appearance: alert, in no apparent distress Head exam: Present: atraumatic, normocephalic Eye exam: Present: normal appearance. Absent: scleral icterus, conjunctival injection ENT exam: Present: normal oropharynx Neck exam: Present: normal inspection Respiratory exam: Present: normal lung sounds bilaterally. Absent: respiratory distress, wheezes, rales, rhonchi, stridor Cardiovascular Exam: Present: regular rate, normal rhythm, normal heart sounds. Absent: systolic murmur, diastolic murmur, rubs, gallop GI/Abdominal exam: Present: soft. Absent: distended, tenderness, guarding, rebound, rigid, mass Extremities exam: Present: normal inspection, normal capillary refill. Absent: pedal edema, calf tenderness Back exam: Present: normal inspection Neurological exam: Present: alert Psychiatric exam: Present: depressed, flat affect, suicidal ideation. Absent: agitated, anxious, manic, homicidal ideation Skin exam: Present: warm, dry, intact, normal color. Absent: rash Course Vital Signs 09/29/22 09/29/22 02:00 05:06 Temperature 97.1 F L 97.5 F L Pulse Rate 103 H Pulse Rate [ 110 H Left Sitting] Respiratory 16 14 Rate Blood Pressure 118/75 Blood Pressure 118/75 [Left Arm Sitting] O2 Sat by Pulse 99 99 Oximetry Medical Decision Making - Medical Decision Making Patient is seen by EPS personnel and will be admitted for further evaluation and treatment to the 3 [address]. floor Was pt. sent in by a medical professional or institution (, PA, DIRECT CASTING OPERATOR, urgent care, hospital, or halfway...) When possible be specific @ -[No] Did you speak to anyone other than the patient for history (EMS, parent, family, police, friend...)? What history was obtained from this source @ -[No] Did you review nursing and triage notes (agree or disagree)? Why? @ -[I reviewed and agree with nursing and triage notes] Were old charts reviewed (outside hosp., previous admission, EMS record, old EKG, old radiological studies, urgent care reports/EKG's, halfway records)? Report findings @ -[No old charts were reviewed] Differential Diagnosis (chest pain, altered mental status, abdominal pain women, abdominal pain men, vaginal bleeding, weakness, fever, dyspnea, syncope, headach e, dizziness, GI bleed, back pain, seizure, CVA, palpatations, mental health, musculoskeletal)? @ -[Differential Mental Health Depression, anxiety, bipolar, psychosis, schizophrenia, borderline personality, situational depression, adjustment disorder, behavioral disorder, brain tumor, malingering, substance abuse, encephalopathy, medication reaction, dementia, hypothyroidism, degenerative neurologic disorder, lupus.... This is not meant to be all-inclusive list EKG interpreted by me (3pts min.). @ -[ X-rays interpreted by me (1pt min.). @ -[None done] CT interpreted by me (1pt min.). @ -[None done] U/S interpreted by me (1pt. min.). @ -[None done] What testing was considered but not performed or refused? (CT, X-rays, U/S, labs)? Why? @ -[None] What meds were considered but not given or refused? Why? @ -[None] Did you discuss the management of the patient with other professionals (professionals i.e. , PA, DIRECT CASTING OPERATOR, lab, RT, psych nurse, social work administrator, specialty trimmer, teacher, helicopter officer, patient case coordinator)? Give summary @ -[EPS personnel Was smoking cessation discussed for >3mins.? @ -[No] Was critical care preformed (if so, how long)? @ -[No] Were there social determinants of health that impacted care today? How? (Homelessness, low income, unemployed, alcoholism, drug addiction, transportation, low edu. Level, literacy, decrease access to med. care, skilled nursing, rehab)? @ -[No] Was there de-escalation of care discussed even if they declined (Discuss DNR or withdrawal of care, Hospice)? DNR status @ -[No] What co-morbidities impacted this encounter? (DM, HTN, Smoking, COPD, CAD, Cancer, CVA, ARF, Chemo, Hep., AIDS, mental health diagnosis, sleep apnea, morbid obesity)? @ -[Mental health diagnoses Was patient admitted / discharged? Hospital course, mention meds given and route, prescriptions, significant lab abnormalities, going to OR and other pertinent info. @ -[Admitted Undiagnosed new problem with uncertain prognosis? @ -[No] Drug Therapy requiring intensive monitoring for toxicity (Heparin, Nitro, Insulin, Cardizem)? @ -[No] Were any procedures done? @ -[No] Diagnosis/symptom? @ -[Mood disorder with suicidal ideation Acute, or Chronic, or Acute on Chronic? @ -[Acute on chronic Uncomplicated (without systemic symptoms) or Complicated (systemic symptoms)? @ -[Uncomplicated Side effects of treatment? @ -[No] Exacerbation, Progression, or Severe Exacerbation? @ -[No] Poses a threat to life or bodily function? How? (Chest pain, [place], [place], pneumonia, PE, COPD, DKA, ARF, appy, cholecystitis, CVA, Diverticulitis, Homicidal, Suicidal, threat to staff... and all critical care pts) @ -[This untreated mood disorder and suicidal ideation may progress to suicide - Lab Data Result diagrams: 10/01/22 10:43 10/01/22 10:43 Lab Results 09/29/22 09/29/22 09/29/22 Range/Units 02:07 02:34 03:04 POC Glucose (mg/dL) 284 H (70-110) mg/dL POC Glu Post Partum Nurse Liliya Lowery Urine Color Light Yellow Urine Appearance Clear (Clear) Urine pH 5.5 (5.0-8.0) Ur Specific [place] 1.014 (1.001-1.035) Urine Protein Negative (Negative) Urine Glucose (UA) 4+ H (Negative) Urine Ketones Negative (Negative) Urine Blood Negative (Negative) Urine Nitrite Negative (Negative) Urine Bilirubin Negative (Negative) Urine Urobilinogen <2.0 (<2.0) mg/dL Ur Leukocyte Esterase Negative (Negative) Urine Opiates Screen Not Detected (NotDetected) Ur Oxycodone Screen Not Detected (NotDetected) Urine Methadone Screen Not Detected (NotDetected) Ur Propoxyphene Screen Not Detected (NotDetected) Ur Barbiturates Screen Not Detected (NotDetected) U Tricyclic Antidepress Not Detected (NotDetected) Ur Phencyclidine Scrn Not Detected (NotDetected) Ur Amphetamines Screen Not Detected (NotDetected) U Methamphetamines Scrn Not Detected (NotDetected) U Benzodiazepines Scrn Not Detected (NotDetected) Urine Cocaine Screen Not Detected (NotDetected) U Marijuana (THC) Screen Detected H (NotDetected) Coronavirus (PCR) Not Detected (Not Detectd) Disposition Clinical Impression: Mood disorder Disposition: ADMITTED IP TO THIS HOSP Condition: Fair Is patient prescribed a controlled substance at d/c from ED?: No
[2022-09-29 03:32] LABS: Appearance,Urine Clear (Clear); Bilirubin,Urine Negative (Negative); Blood,Urine Negative (Negative); Color,Urine Light Yellow; Glucose,Urine (UA) 4+ (Negative); Ketones,Urine Negative (Negative); Leukocyte Esterase,Urine Negative (Negative); Nitrite,Urine Negative (Negative); PH, Urine 5.5 (5.0-8.0); Protein,Urine Negative (Negative); Specific Gravity,Urine 1.014 (1.001-1.035); Urobilinogen,Urine <2.0 mg/dL (<2.0)
[2022-09-29 03:41] LABS: Amphetamine Screen,Urine Not Detected (NotDetected); Barbiturate Screen,Urine Not Detected (NotDetected); Benzodiazepines Screen,Urine Not Detected (NotDetected); Cocaine Screen,Urine Not Detected (NotDetected); Methadone Screen, Urine Not Detected (NotDetected); Opiate Screen,Urine Not Detected (NotDetected); Oxycodone Screen, Urine Not Detected (NotDetected); Phencyclidine Screen,Urine Not Detected (NotDetected); Tricyclic Antidepressant,Urine Not Detected (NotDetected); Urn Cannabinoid Scrn Detected (NotDetected)
[2022-09-29] MEDS ORDERED: MAGNESIUM HYDROXIDE 2,400 MG/10 ML CUP PO PRN (04:17)
[2022-09-29] MEDS ORDERED: ACETAMINOPHEN TAB 325 MG TAB PO PRN (04:17)
[2022-09-29] MEDS ORDERED: hydrOXYzine HCL 50 MG/ML 1 ML VIAL IM PRN (04:17)
[2022-09-29] MEDS ORDERED: MAG HYDROX/AL HYDROX/SIMETH 30 ML CUP PO PRN (04:17)
[2022-09-29] MEDS ORDERED: hydrOXYzine HCL 25 MG TAB PO PRN (04:17)
[2022-09-29 07:48] LABS: Glucose,Whole Blood 481 mg/dL (70-110)
[2022-09-29] MEDS: INSULIN DETEMIR (LEVEMIR) 100 UNIT/ML SYR SQ SCH (07:49)
[2022-09-29] MEDS: INSULIN ASPART (NovoLOG) 100 UNIT/ML VIAL SQ SCH ×6 (07:51→20:08)
[2022-09-29] MEDS ORDERED: NICOTINE 14MG/24HR PATCH TRANSDERM SCH (09:00)
[2022-09-29] MEDS ORDERED: DEXTROSE 50% SYRINGE 50 ML IVP PRN ×2 (09:23)
--- NOTE | 2022-09-29 09:49 | P.HP ---
Psychiatric H&P - . H&P Date: 09/29/22 History & Physical: Allergies Allergy/AdvReac Type Severity Reaction Status Date / Time No Known Allergies Allergy Verified 09/29/22 04:42 Vital Signs Temp 97.5 F L 09/29/22 05:06 Pulse 110 H 09/29/22 05:06 Resp 14 09/29/22 05:06 BP 118/75 09/29/22 05:06 Pulse Ox 99 09/29/22 05:06 FiO2 Intake & Output 09/28/22 09/29/22 09/29/22 18:59 06:59 18:59 Weight 66.253 kg Laboratory Last Values POC Glucose (mg/dL) 481 mg/dL (70-110) H 09/29/22 07:47 POC Glu Pc Analyst ID 09/29/22 07:47 Urine Color Light Yellow 09/29/22 02:34 Urine Appearance Clear (Clear) 09/29/22 02:34 Urine pH 5.5 (5.0-8.0) 09/29/22 02:34 Ur Specific [place] 1.014 (1.001-1.035) 09/29/22 02:34 Urine Protein Negative (Negative) 09/29/22 02:34 Urine Glucose (UA) 4+ (Negative) H 09/29/22 02:34 Urine Ketones Negative (Negative) 09/29/22 02:34 Urine Blood Negative (Negative) 09/29/22 02:34 Urine Nitrite Negative (Negative) 09/29/22 02:34 Urine Bilirubin Negative (Negative) 09/29/22 02:34 Urine Urobilinogen <2.0 mg/dL (<2.0) 09/29/22 02:34 Ur Leukocyte Esterase Negative (Negative) 09/29/22 02:34 Urine Opiates Screen Not Detected (NotDetected) 09/29/22 02:34 Ur Oxycodone Screen Not Detected (NotDetected) 09/29/22 02:34 Urine Methadone Screen Not Detected (NotDetected) 09/29/22 02:34 Ur Propoxyphene Screen Not Detected (NotDetected) 09/29/22 02:34 Ur Barbiturates Screen Not Detected (NotDetected) 09/29/22 02:34 U Tricyclic Antidepress Not Detected (NotDetected) 09/29/22 02:34 Ur Phencyclidine Scrn Not Detected (NotDetected) 09/29/22 02:34 Ur Amphetamines Screen Not Detected (NotDetected) 09/29/22 02:34 U Methamphetamines Scrn Not Detected (NotDetected) 09/29/22 02:34 U Benzodiazepines Scrn Not Detected (NotDetected) 09/29/22 02:34 Urine Cocaine Screen Not Detected (NotDetected) 09/29/22 02:34 U Marijuana (THC) Screen Detected (NotDetected) H 09/29/22 02:34 Coronavirus (PCR) Not Detected (Not Detectd) 09/29/22 03:04 09/29/22 08:55 IDENTIFYING DATA: Patient is a single, unemployed, 27-year-old male with significant history of diabetes mellitus type 1 (and a recent hx of DKA), depression, and borderline personality disorder, currently homeless. HPI: Patient brought himself into the ED voluntarily due to suicidal ideation with plan to overdose on his insulin. Patient has access to insulin due to having DM I. On another note, patient endorsed having a warrant out for his arrest due to obstruction of justice from August 2021. Patient describes a cycle of homelessness and lack of finances leading to i nability to care for himself and take medications as directed. He states that this leads to increased depression and feeds into difficulty with improving his state of homelessness. He says that he has been feeling depressed for many years as a result. He says he came from a "broken home "which has impacted his level of resources and ability to attain independence. He states that the current system has not been helpful in providing him with housing and transportation because he would ideally like to be working. He feels remorseful towards his addiction of Xanax and subsequent actions, including impacting his relationship with his sister. He states that he feels he traded that addiction to intrusive thoughts of suicidal ideation. He reports poor energy, anhedonia, thoughts of worthlessness, and psychomotor retardation. He states that he has intermittent difficulty falling asleep but is able to stay asleep. He denies having taken his antidepressants Wellbutrin or Remeron regularly. Patient continues to endorse suicidal ideation currently with plan to overdose on insulin. He denies homicidal ideation, auditory and visual hallucinations. He denies constellation of symptoms consistent with bekah. He denies having access to weapons or guns. PAST PSYCHIATRIC HISTORY: The patient has had multiple psychiatric hospitalizations. He is nonadherent with any prescribed medications and does not follow up with any psychiatrist or therapist on a regular basis. Patient has been tried on several different antidepressants in the past however has been nonadherent. Patient has had several suicide attempts in the past. He was most recently admitted to our [facility] psychiatric unit from 08/19/22 to 08/22/2022 and discharged due to intractable nausea and vomiting. He was subsequently placed on Wellbutrin XL 150 mg daily, Remeron 15 mg at bedtime, and melatonin 5 mg at bedtime. Patient was admitted to the mental health unit in December 2021 and has had several inpatient medical admissions and also ER visits with psychiatric consultations. Has a history of cluster B personality disorder and depression. PMH: Past Medical History: Asthma, Diabetes Mellitus, Neurologic Disorder, Skin Disorder Additional Past Medical History / Comment(s): IDDM type I, neuropathy bilateral feet, DKA, eczema. History of Any Multi-Drug Resistant Organisms: None Reported Past Surgical History: Adenoidectomy Additional Past Surgical History / Comment(s): 2002 Past Anesthesia/Blood Transfusion Reactions: No Reported Reaction Past Psychological History: Anxiety, Depression Smoking Status: Never smoker, Vaper Past Alcohol Use History: Occasional Past Drug Use History: Marijuana ALLERGIES: NO KNOWN DRUG ALLERGIES CHEMICAL DEPENDENCY HISTORY: The patient reports binge alcohol use episodes in the past. He does admit to marijuana use, up to a quarter ounce per day. He has a history of Xanax abuse however denies any Xanax use over the past few weeks. FAMILY PSYCHIATRIC/SUBSTANCE USE HISTORY: Denies SOCIAL HISTORY: Patient was born and raised in [place]. He dropped out in the 11th grade. He is currently homeless. He states that his sister and mother live in [place]. However his sister has cut off ties with him due to his reported behavior while abusing Xanax. He says that his mother kicked him on because she had a boyfriend. 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 MENTAL STATUS EXAM: General Appearance: Patient appears to be tall, thin, alert, stated age. Patient appears to have a slightly disheveled hygiene and grooming. Dressed in street clothing. Behavior: Patient is seated without any agitated behavior. Eye contact is intermittent. Speech: Patient's speech is fluent and nonpressured. Monotone. Mood/Affect: Patient reports their mood is "depressed", affect is congruent. Suicidality/Homicidality: Patient admits to suicidal thoughts with plan. Denying any homicidal ideation. Perceptions: Patient denies any visual hallucinations and denies any auditory hallucinations Though content/process: There is no evidence of any delusional thought content and thought process is linear and goal-directed. Endorsing hopelessness. Memory and concentration: AOX3, grossly intact for the purposes of this session. Can spell "WORLD" backwards Judgment and insight: poor. STRENGTHS/WEAKNESSES: strength is that patient is resilient. Weakness is that patient has poor social support. INTELLECT: average IMPRESSIONS: Major depressive disorder without psychotic features Borderline personality disorder anxiety disorder NOS Cannabis use disorder homelessness PLAN: -Patient is admitted under voluntary status to MHU for stabilization of psychiatric symptoms and safety. Patient signed adult voluntary form and medication consent and is placed in patient's chart. -Medications : Restart Wellbutrin XL 150 mg daily Restart Remeron at 7.5 mg qHS -Patient was counselled on substance abuse and desired to cut back on use. Motivational interviewing. -Patient was informed of the risks, benefits and side effects of the medication and patient verbally consented to taking the medications. Patient signed med consent form and was placed in chart. -Internal Medicine consult to perform medical evaluation and physical. -SW on board for discharge planning. Encourage patient to participate in groups to work on coping skills. Would benefit from assisted and applying for disability/SSI. 09/29/22 09:09
[2022-09-29] MEDS: GABAPENTIN 300 MG CAP PO SCH ×3 (09:59→20:09)
[2022-09-29] MEDS: LOSARTAN 50 MG TAB PO SCH (09:59)
[2022-09-29] MEDS: buPROPion XL 150 MG TAB.ER.24H PO SCH (09:59)
[2022-09-29 12:44] LABS: Glucose,Whole Blood 173 mg/dL (70-110)
[2022-09-29 17:56] LABS: Glucose,Whole Blood 97 mg/dL (70-110)
[2022-09-29 19:57] LABS: Glucose,Whole Blood 250 mg/dL (70-110)
[2022-09-29] MEDS: MIRTAZAPINE 15 MG TAB PO SCH (20:09)
[2022-09-30 07:43] LABS: Glucose,Whole Blood 266 mg/dL (70-110)
[2022-09-30] MEDS: GABAPENTIN 300 MG CAP PO SCH ×3 (08:10→20:43)
[2022-09-30] MEDS: buPROPion XL 150 MG TAB.ER.24H PO SCH (08:11)
[2022-09-30] MEDS: INSULIN DETEMIR (LEVEMIR) 100 UNIT/ML SYR SQ SCH (08:11)
[2022-09-30] MEDS: LOSARTAN 50 MG TAB PO SCH (08:11)
[2022-09-30] MEDS: INSULIN ASPART (NovoLOG) 100 UNIT/ML VIAL SQ SCH ×7 (08:15→20:43)
--- NOTE | 2022-09-30 11:26 | P.PN ---
Progress Note - Text Progress Note Date: 09/30/22 Interval history: patient was seen today laying in bed writing in his journal and was agreeable to speak to film writer in the office today. he complimented film writer on his shoes. he spoke about "lying to you guys" lately. and states that he has been hearing voices lately and doesnt know if they are his own thoughts. spoke about non compliance of insulin and other meds and having to come into the hospital for DKA. states that his sleep has been poor, appetite has been poor. spoke of being homeless and having other stressors. he states that he is feeling depressed at this time, endorses anxiety. claims that he does have passive SI, no intent or plan. denies any Hi and denies any AH or Vh. has been taking his medications. Mental status examination: General Appearance: Patient appears to be tall, thin, alert, stated age. Patient appears to have a slightly disheveled hygiene and grooming. Dressed in street clothing. Behavior: Patient is seated without any agitated behavior. Eye contact is intermittent. Speech: Patient's speech is fluent and nonpressured. Monotone. Mood/Affect: Patient reports their mood is "depressed but a bit better", affect is congruent, improving mildly Suicidality/Homicidality: Patient admits to suicidal thoughts with plan. Denying any homicidal ideation. Perceptions: Patient denies any visual hallucinations and denies any auditory hallucinations Though content/process: There is no evidence of any delusional thought content and thought process is linear and goal-directed. Endorsing hopelessness, improving mildly Memory and concentration: AOX3, grossly intact for the purposes of this session Judgment and insight: chronically poor, improving mildly IMPRESSIONS: Major depressive disorder without psychotic features Borderline personality disorder anxiety disorder NOS Cannabis use disorder Homelessness PLAN: -Patient is admitted under voluntary status to MHU for stabilization of psychiatric symptoms and safety. Patient signed adult voluntary form and medication consent and is placed in patient's chart. -Medications : continue with Wellbutrin XL 150 mg daily, remeron at 7.5 mg qHS -SW on board for discharge planning. Encourage patient to participate in groups to work on coping skills. Would benefit from penitentiary and applying for disability/SSI. patient will also beenfit from [facility] through [facility].
[2022-09-30 12:47] LABS: Glucose,Whole Blood 175 mg/dL (70-110)
[2022-09-30 17:32] LABS: Glucose,Whole Blood 59 mg/dL (70-110)
[2022-09-30 17:52] LABS: Glucose,Whole Blood 71 mg/dL (70-110)
[2022-09-30 20:17] LABS: Glucose,Whole Blood 389 mg/dL (70-110)
[2022-09-30] MEDS: MIRTAZAPINE 15 MG TAB PO SCH (20:43)
[2022-10-01 08:14] LABS: Glucose,Whole Blood 370 mg/dL (70-110)
--- NOTE | 2022-10-01 08:44 | PN ---
PROGRESS NOTE CHIEF COMPLAINT: Major depression with suicidal thoughts. HISTORY OF PRESENT ILLNESS: This gentleman is admitted to the psych unit for depression. He has had this for an extended period of time and it is manifested by history of not taking insulin and repeatedly coming in extremis with ketoacidosis. REVIEW OF SYSTEMS: At present time, he is not complaining of any headaches, problems with vision, hearing, chest pain, shortness of breath, abdominal pain, urinary complaints, etc. PAST MEDICAL HISTORY: Otherwise unremarkable or unchanged. FAMILY HISTORY: Otherwise unremarkable or unchanged. PERSONAL AND SOCIAL HISTORY: Otherwise unremarkable or unchanged. PHYSICAL EXAMINATION: GENERAL: He is a slender, somewhat disheveled. SKIN: Color is normal. HEAD, EARS, EYES, NOSE, MOUTH AND THROAT: Normal. CHEST: Clear. CARDIAC: Normal. ABDOMEN: Flat, soft, nontender. EXTREMITIES: Normal. IMPRESSION: 1. Major depression. 2. Uncontrolled type 1 insulin-dependent diabetes mellitus. 3. Gastroparesis. 4. Diabetic peripheral neuropathy. RECOMMENDATIONS: No changes at this time. MMODL / IJN: [id number] /
[2022-10-01] MEDS: GABAPENTIN 300 MG CAP PO SCH ×3 (08:52→20:48)
[2022-10-01] MEDS: buPROPion XL 150 MG TAB.ER.24H PO SCH (08:52)
[2022-10-01] MEDS: LOSARTAN 50 MG TAB PO SCH (08:52)
[2022-10-01] MEDS: INSULIN ASPART (NovoLOG) 100 UNIT/ML VIAL SQ SCH ×7 (08:53→20:50)
[2022-10-01] MEDS: INSULIN DETEMIR (LEVEMIR) 100 UNIT/ML SYR SQ SCH (09:15)
--- NOTE | 2022-10-01 10:41 | P.PN ---
Progress Note - Text Progress Note Date: 10/01/22 Interval history: patient was seen today laying in bed earlier and was sleeping, underwriter solicitation director returned later on and patient was awoken. She was agreeable to speak to underwriter solicitation director in the office today. He appeared to have mild improvement in his affect today. He states that he was irritable today with the nurses due to his elevated blood sugars. He states that when the blood sugars increase he feels agitated and states that one of the needles that he was supposed to use was spent. He claims that he wants apologized to the nurse today. He states that he has been taking the medication and feels that the Remeron and the Wellbutrin of an helping him. He claims that he did get improved rest last night. States that he wants to try to get on disability or SSI once he leaves the hospital. He claims that he does not know where he will go upon discharge. He continues to ask about lithium and states that it helped him with his suicidal thoughts in the past and wanted to be restarted on low dose. Claims to have an improving appetite. claims to have passive SI, no intent or plan. denies any Hi and denies any AH or Vh. has been taking his medications. Mental status examination: General Appearance: Patient appears to be tall, thin, alert, stated age. Patient appears to have a slightly disheveled hygiene and grooming. Dressed in street clothing. Behavior: Patient is seated without any agitated behavior. Eye contact is intermittent, improving midlly. Speech: Patient's speech is fluent and nonpressured. Monotone. Mood/Affect: Patient reports their mood is "a bit better", affect is congruent, improving mildly Suicidality/Homicidality: Patient admits to suicidal thoughts with plan. De nying any homicidal ideation. Perceptions: Patient denies any visual hallucinations and denies any auditory hallucinations Though content/process: There is no evidence of any delusional thought content and thought process is linear and goal-directed. Memory and concentration: AOX3, grossly intact for the purposes of this session Judgment and insight: chronically poor, improving mildly IMPRESSIONS: Major depressive disorder without psychotic features Borderline personality disorder anxiety disorder NOS Cannabis use disorder Homelessness PLAN: -Patient is admitted under voluntary status to MHU for stabilization of psychiatric symptoms and safety. Patient signed adult voluntary form and medication consent and is placed in patient's chart. -Medications : continue Wellbutrin XL 150 mg daily, remeron at 7.5 mg qHS. patient is requesting to be restarted on lithium low dose as it was effective to in the past helping him with SI. -awaiting blood work cbc with diff and basic metabolic panel - on board for discharge planning. Encourage patient to participate in groups to work on coping skills. Would benefit from longterm and applying for disability/SSI. Patient will also benefit from DBT through [facility]. likely discharge in 1-2 days.
[2022-10-01 11:14] LABS: Basophils # (A) 0.1 k/uL (0-0.2); Basophils % (A) 1 %; Eosinophils # (A) 0.1 k/uL (0-0.7); Eosinophils % (A) 1 %; HCT 40.6 % (39.0-53.0); HGB 13.3 gm/dL (13.0-17.5); Lymphocytes # (A) 2.4 k/uL (1.0-4.8); Lymphocytes % (A) 30 %; MCH 30.7 pg (25.0-35.0); MCHC 32.7 g/dL (31.0-37.0); MCV 93.9 fL (80.0-100.0); Mean Platelet Volume 6.9; Monocytes # (A) 0.4 k/uL (0-1.0); Monocytes % (A) 5 %; Neutrophils % (A) 61 %; Platelet Count 369 k/uL (150-450); RBC 4.32 m/uL (4.30-5.90); RDW 13.9 % (11.5-15.5); WBC 8.1 k/uL (3.8-10.6)
[2022-10-01 11:21] LABS: African American GFR (CKD) >90 (>60 ml/min/1.73 sqM); Anion Gap 14 mmol/L; Blood Urea Nitrogen 17 mg/dL (9-20); Calcium 8.9 mg/dL (8.4-10.2); Carbon Dioxide 27 mmol/L (22-30); Chloride 95 mmol/L (98-107); Glucose 295 mg/dL (74-99); Non-African American GFR(CKD) >90 (>60 ml/min/1.73 sqM); Potassium 4.7 mmol/L (3.5-5.1); Sodium 136 mmol/L (137-145)
[2022-10-01 12:02] VITALS: BMI 18.7
--- NOTE | 2022-10-01 12:14 | PN ---
PROGRESS NOTE DATE OF SERVICE: 09/26/2022 CHIEF COMPLAINT: DKA. HISTORY OF PRESENT ILLNESS: This gentleman is doing very well and he is being evaluated by Psychiatry. PHYSICAL EXAMINATION: CHEST: Clear. CARDIAC: Normal. ABDOMEN: Soft and nontender. IMPRESSION: 1. Diabetic ketoacidosis. 2. Depression. PLAN: Await psychiatric evaluation. MMODL / IJN: [id number] /
[2022-10-01 12:52] LABS: Glucose,Whole Blood 143 mg/dL (70-110)
[2022-10-01 17:36] LABS: Glucose,Whole Blood 136 mg/dL (70-110)
[2022-10-01 19:55] LABS: Glucose,Whole Blood 213 mg/dL (70-110)
[2022-10-01] MEDS: MIRTAZAPINE 15 MG TAB PO SCH (20:49)
[2022-10-02 07:40] LABS: Glucose,Whole Blood 446 mg/dL (70-110)
[2022-10-02] MEDS: INSULIN ASPART (NovoLOG) 100 UNIT/ML VIAL SQ SCH ×7 (08:08→20:45)
[2022-10-02] MEDS: INSULIN DETEMIR (LEVEMIR) 100 UNIT/ML SYR SQ SCH (08:14)
[2022-10-02] MEDS: GABAPENTIN 300 MG CAP PO SCH ×3 (09:14→20:43)
[2022-10-02] MEDS: buPROPion XL 150 MG TAB.ER.24H PO SCH (09:14)
[2022-10-02] MEDS: LOSARTAN 50 MG TAB PO SCH (09:19)
[2022-10-02 12:41] LABS: Glucose,Whole Blood 289 mg/dL (70-110)
[2022-10-02] MEDS: LITHIUM CARBONATE 150 MG CAP PO SCH ×2 (12:56→20:43)
[2022-10-02 17:33] LABS: Glucose,Whole Blood 105 mg/dL (70-110)
--- NOTE | 2022-10-02 18:56 | P.PN ---
Progress Note - Text Progress Note Date: 10/02/22 Interval history: patient was seen today laying in bed earlier and was sleeping, typewriters functional tester returned later on and patient was awoken and agreeable to speak in the office today. He appeared to have mild improvement in his affect today and just showered. continues to have fluctuating blood sugars. He states that he was irritable earlier but is feeling a bit better. He states that he has been taking the medications, states that the remeron is helping him with sleep. we spoke about increasing wellbutrin which he is ok with. He claims that he does not know where he will go upon discharge once again. his blood work came back and continues to want to be put on lithiu. Claims to have an improving appetite. claims to have passive SI, no intent or plan. denies any Hi and denies any AH or Vh. has been taking his medications. Mental status examination: General Appearance: Patient appears to be tall, thin, alert, stated age. Patient appears to have a slightly disheveled hygiene and grooming. Dressed in street clothing. Behavior: Patient is seated without any agitated behavior. Eye contact is intermittent, improving midlly. Speech: Patient's speech is fluent and nonpressured. Monotone, improving mildly Mood/Affect: Patient reports their mood is "a bit better", affect is congruent, improving mildly Suicidality/Homicidality: Patient admits to suicidal thoughts with plan. Denying any homicidal ideation. Perceptions: Patient denies any visual hallucinations and denies any auditory hallucinations Though content/process: There is no evidence of any delusional thought content and thought process is linear and goal-directed. Memory and concentration: AOX3, grossly intact for the purposes of this session Judgment and insight: chronically poor, improving mildly IMPRESSIONS: Major depressive disorder without psychotic features Borderline personality disorder anxiety disorder NOS Cannabis use disorder Homelessness PLAN: -Patient is admitted under voluntary status to MHU for stabilization of psychiatric symptoms and safety. Patient signed adult voluntary form and medication consent and is placed in patient's chart. -Medications : increase Wellbutrin XL 300 mg daily, remeron 7.5 mg qHS. start lithium 150 mg bid for mood stabilization/suicidal thoughts. -reviewed blood work cbc with diff and basic metabolic panel -SW on board for discharge planning. Encourage patient to participate in groups to work on coping skills. Would benefit from half-way and applying for disabili ty/SSI. Patient will also benefit from DBT through [facility]. likely discharge in 1-2 days.
[2022-10-02 19:54] LABS: Glucose,Whole Blood 227 mg/dL (70-110)
[2022-10-02] MEDS: MIRTAZAPINE 15 MG TAB PO SCH (20:43)
[2022-10-03 07:43] LABS: Glucose,Whole Blood 308 mg/dL (70-110)
[2022-10-03] MEDS: buPROPion XL 300 MG TAB.ER.24H PO SCH (08:40)
[2022-10-03] MEDS: GABAPENTIN 300 MG CAP PO SCH ×3 (08:40→20:45)
[2022-10-03] MEDS: LITHIUM CARBONATE 150 MG CAP PO SCH ×2 (08:40→20:45)
[2022-10-03] MEDS: LOSARTAN 50 MG TAB PO SCH (08:40)
[2022-10-03] MEDS: INSULIN DETEMIR (LEVEMIR) 100 UNIT/ML SYR SQ SCH (08:43)
[2022-10-03] MEDS: INSULIN ASPART (NovoLOG) 100 UNIT/ML VIAL SQ SCH ×7 (08:44→20:23)
--- NOTE | 2022-10-03 10:43 | P.PN ---
Progress Note - Text Progress Note Date: 10/03/22 Interval history: patient was seen taking part in group today and was agreeable to speak to sheet writer in the office. He appeared to have mild improvement in his affect today and states that his blood sugars are in a bit better control sisnce yesterday. He claims that he is trying to be consistent with his diet and consuming carbohydrates. He states that he was irritable earlier but is feeling a bit better. At this time he states that his mood has been gradually improving, states that his anxiety is also improving with medications. He states that he has been taking the medications, he apparently has been sleeping a bit better. Claims that the lithium has been helping with the suicidal thoughts and they are better today. he states that he is still not very sure were he will go upon d/c and wants to call his friends today to see if he can stay there as the shelters have closed in the area. Claims to have an improving appetite.denies any SI, no intent or plan. denies any Hi and denies any AH or Vh. has been taking his medications. Mental status examination: General Appearance: Patient appears to be tall, thin, alert, stated age. Patient appears to have a slightly disheveled hygiene and grooming. Dressed in street clothing. Behavior: Patient is seated without any agitated behavior. Eye contact is intermittent, improving midlly. Speech: Patient's speech is fluent and nonpressured. Monotone, improving mildly Mood/Affect: Patient reports their mood is "a bit better", affect is congruent, improving mildly Suicidality/Homicidality: Patient admits to suicidal thoughts with plan. Denying any homicidal ideation. Perceptions: Patient denies any visual hallucinations and denies any auditory hallucinations Though content/process: There is no evidence of any delusional thought content and thought process is linear and goal-directed. concrete Memory and concentration: AOX3, grossly intact for the purposes of this session Judgment and insight: chronically poor, improving mildly IMPRESSIONS: Major depressive disorder without psychotic features Borderline personality disorder anxiety disorder NOS Cannabis use disorder Homelessness PLAN: -Patient is admitted under voluntary status to MHU for stabilization of psychiatric symptoms and safety. Patient signed adult voluntary form and medication consent and is placed in patient's chart. -Medications : continue Wellbutrin XL 300 mg daily, remeron 7.5 mg qHS. lithium 150 mg bid for mood stabilization/suicidal thoughts. -SW on board for discharge planning. Encourage patient to participate in groups to work on coping skills. Would benefit from assisted and applying for disability/SSI, will ask [facility] to assist with this. Patient will also benefit from DBT through [facility]. likely discharge tomorrow to [facility].
[2022-10-03 12:42] LABS: Glucose,Whole Blood 122 mg/dL (70-110)
[2022-10-03 17:36] LABS: Glucose,Whole Blood 131 mg/dL (70-110)
[2022-10-03 20:06] LABS: Glucose,Whole Blood 341 mg/dL (70-110)
[2022-10-03] MEDS: MIRTAZAPINE 15 MG TAB PO SCH (20:45)
[2022-10-04 08:04] LABS: Glucose,Whole Blood 225 mg/dL (70-110)
[2022-10-04] MEDS: INSULIN ASPART (NovoLOG) 100 UNIT/ML VIAL SQ SCH ×7 (08:20→21:01)
[2022-10-04] MEDS: INSULIN DETEMIR (LEVEMIR) 100 UNIT/ML SYR SQ SCH (08:20)
[2022-10-04] MEDS: buPROPion XL 300 MG TAB.ER.24H PO SCH (09:05)
[2022-10-04] MEDS: LITHIUM CARBONATE 150 MG CAP PO SCH (09:05)
[2022-10-04] MEDS: LOSARTAN 50 MG TAB PO SCH (09:06)
[2022-10-04] MEDS: GABAPENTIN 300 MG CAP PO SCH ×2 (09:06→16:54)
--- NOTE | 2022-10-04 11:42 | P.PN ---
Progress Note - Text Progress Note Date: 10/04/22 Interval history: patient was seen laying in his bed this morning and was reading a book. He lolita eared to have mild improvement today and his hygiene and also his affect. He claims that his mood is gradually improving. He states that he has a bit more energy today during the day and did not sleep in. Claims that he did have some difficulty sleeping last night. He states that one of the patient down the hallways is yelling racial slurs and states that "it's really getting to me". He claims that he is not confrontational about it and has been ignoring him. He states that he has been going to some groups. We spoke about enrolling patient in the next step program through [facility] for closer monitoring which she is okay with. Patient also will have a lithium level checked on Friday morning. Claims that his appetite is gradually improving. Claims that the lithium has been helping with the suicidal thoughts and they are better today. denies any current SI, no intent or plan. Denies any Hi and denies any AH or Vh. has been taking his medications Mental status examination: General Appearance: Patient appears to be tall, thin, alert, stated age. Patient appears to have a improving hygiene and grooming. Dressed in street clothing. Behavior: Patient is seated without any agitated behavior. Eye contact is intermittent, improving mildly. Speech: Patient's speech is fluent and nonpressured. Monotone, improving mildly Mood/Affect: Patient reports their mood is "a little better", affect is congruent, improving mildly Suicidality/Homicidality: Patient admits to suicidal thoughts with plan. Denying any homicidal ideation. Perceptions: Patient denies any visual hallucinations and denies any auditory hallucinations Though content/process: There is no evidence of any delusional thought content and thought process is linear and goal-directed. concrete Memory and concentration: AOX3, grossly intact for the purposes of this session Judgment and insight: chronically poor, improving mildly IMPRESSIONS: Major depressive disorder without psychotic features Borderline personality disorder anxiety disorder NOS Cannabis use disorder Homelessness PLAN: -Patient is admitted under voluntary status to MHU for stabilization of psychiatric symptoms and safety. Patient signed adult voluntary form and medication consent and is placed in patient's chart. -Medications : continue Wellbutrin XL 300 mg daily, remeron 7.5 mg qHS, lithium 150 mg bid for mood stabilization/suicidal thoughts. check lithium level friday morning -vistaril prn for anxiety -SW on board for discharge planning. Encourage patient to participate in groups to work on coping skills. patient will receive information/resources for SSI application. Patient will be enrolled in next step program through [facility] for closer monitoring. likely discharge friday after lithium level is checked
[2022-10-04 13:00] LABS: Glucose,Whole Blood 55 mg/dL (70-110)
[2022-10-04 13:19] LABS: Glucose,Whole Blood 46 mg/dL (70-110)
[2022-10-04 13:33] LABS: Glucose,Whole Blood 61 mg/dL (70-110)
[2022-10-04 13:52] LABS: Glucose,Whole Blood 105 mg/dL (70-110)
[2022-10-04 17:36] LABS: Glucose,Whole Blood 252 mg/dL (70-110)
[2022-10-04 20:03] LABS: Glucose,Whole Blood 385 mg/dL (70-110)
[2022-10-05] MEDS: GABAPENTIN 300 MG CAP PO SCH ×4 (00:12→22:41)
[2022-10-05] MEDS: LITHIUM CARBONATE 150 MG CAP PO SCH ×3 (00:13→22:41)
[2022-10-05] MEDS: MIRTAZAPINE 15 MG TAB PO SCH ×2 (00:13→22:41)
[2022-10-05 07:41] LABS: Glucose,Whole Blood 280 mg/dL (70-110)
[2022-10-05] MEDS: INSULIN DETEMIR (LEVEMIR) 100 UNIT/ML SYR SQ SCH (07:52)
[2022-10-05] MEDS: INSULIN ASPART (NovoLOG) 100 UNIT/ML VIAL SQ SCH ×7 (07:53→21:05)
[2022-10-05] MEDS: buPROPion XL 300 MG TAB.ER.24H PO SCH (07:54)
[2022-10-05] MEDS: LOSARTAN 50 MG TAB PO SCH (07:54)
[2022-10-05 12:53] LABS: Glucose,Whole Blood 81 mg/dL (70-110)
[2022-10-05 17:38] LABS: Glucose,Whole Blood 166 mg/dL (70-110)
--- NOTE | 2022-10-05 18:06 | P.PN ---
Progress Note - Text Progress Note Date: 10/05/22 Interval history: Patient was seen watching TV in the [facility] today and has been reading a [employer] book. He is calm and cooperative on assessment. He reports good sleep and appetite, reports his mood is so-so, alright, denies feeling depressed but not happy either. He denies SI, intent or plan. Denies any HI, and denies any AH or VH. He has been compliant with his meds, denies medication side effects, and denies need for changes to his medication doses, likes them at the current doses. Mental status examination: General Appearance: Patient appears to be tall, slender male with facial hair. Average hygiene and grooming. Behavior: Patient is standing without any agitated behavior. Eye contact is average. Speech: Patient's speech is fluent and non-pressured. Monotone. Mood/Affect: Patient reports their mood is "alright", affect is congruent. Suicidality/Homicidality: Patient denies suicidal thoughts. Denying any homicidal ideation. Perceptions: Patient denies any visual hallucinations and denies any auditory hallucinations Though content/process: There is no evidence of any delusional thought content and thought process is linear and goal-directed. Memory and concentration: AOX3, grossly intact for the purposes of this session Judgment and insight: chronically poor, improving mildly Assessment/Plan: Continue with current diagnosis. Patient continues to meet criteria for inpatient psychiatric admission for symptom stabilization and safety. Patient will be maintained on current psychotropic medication regimen. Check [place] level on Friday as ordered. Monitor for medication compliance and for any psychotropic medication side effects. Will continue to monitor ongoing response to treatment. Encouraged participation in milieu.
[2022-10-05 20:08] LABS: Glucose,Whole Blood 235 mg/dL (70-110)
[2022-10-06 00:31] VITALS: BP 106/61; PULSE 123; RESP 18; TEMP 97.7
[2022-10-06 07:45] LABS: Glucose,Whole Blood 348 mg/dL (70-110)
[2022-10-06] MEDS: INSULIN DETEMIR (LEVEMIR) 100 UNIT/ML SYR SQ SCH (08:03)
[2022-10-06] MEDS: INSULIN ASPART (NovoLOG) 100 UNIT/ML VIAL SQ SCH ×8 (08:03→21:02)
[2022-10-06] MEDS: LOSARTAN 50 MG TAB PO SCH (08:04)
[2022-10-06] MEDS: buPROPion XL 300 MG TAB.ER.24H PO SCH (08:04)
[2022-10-06] MEDS: LITHIUM CARBONATE 150 MG CAP PO SCH ×2 (08:04→21:16)
[2022-10-06] MEDS: GABAPENTIN 300 MG CAP PO SCH ×3 (08:04→21:16)
[2022-10-06 12:40] LABS: Glucose,Whole Blood 134 mg/dL (70-110)
[2022-10-06 17:40] LABS: Glucose,Whole Blood 91 mg/dL (70-110)
[2022-10-06 20:07] LABS: Glucose,Whole Blood 347 mg/dL (70-110)
--- NOTE | 2022-10-06 20:27 | P.PN ---
Progress Note - Text Progress Note Date: 10/06/22 Interval history: [facility] and reading another [employer] book today, reports he already finished the book from yesterday. He is calm and cooperative on assessment. He reports good sleep and appetite, reports his mood is good today. He denies SI, intent or plan. Denies any HI, and denies any AH or VH. He has been compliant with his meds, denies medication side effects. Mental status examination: General Appearance: Patient appears to be tall, slender male with facial hair. Average hygiene and grooming. Behavior: Patient is standing without any agitated behavior. Eye contact is average. Speech: Patient's speech is fluent and non-pressured. Monotone. Mood/Affect: Patient reports their mood is "alright", affect is congruent. Suicidality/Homicidality: Patient denies suicidal thoughts. Denying any homicidal ideation. Perceptions: Patient denies any visual hallucinations and denies any auditory hallucinations Though content/process: There is no evidence of any delusional thought content and thought process is linear and goal-directed. Memory and concentration: AOX3, grossly intact for the purposes of this session Judgment and insight: chronically poor, improving mildly Assessment/Plan: Continue with current diagnosis. Patient continues to meet criteria for inpatient psychiatric admission for symptom stabilization and safety. Patient will be maintained on current psychotropic medication regimen. Check [place] level on Friday as ordered. Monitor for medication compliance and for any psychotropic medication side effects. Will continue to monitor ongoing response to treatment. Encouraged participation in milieu. Consider discharge tomorrow (Friday) if continues to stabilize.
[2022-10-06] MEDS: MIRTAZAPINE 15 MG TAB PO SCH (21:16)
[2022-10-07 07:47] LABS: Glucose,Whole Blood 226 mg/dL (70-110)
[2022-10-07] MEDS: INSULIN ASPART (NovoLOG) 100 UNIT/ML VIAL SQ SCH ×4 (08:01→13:59)
[2022-10-07] MEDS: INSULIN DETEMIR (LEVEMIR) 100 UNIT/ML SYR SQ SCH (08:02)
[2022-10-07] MEDS: LOSARTAN 50 MG TAB PO SCH (08:59)
[2022-10-07] MEDS: GABAPENTIN 300 MG CAP PO SCH (08:59)
[2022-10-07] MEDS: LITHIUM CARBONATE 150 MG CAP PO SCH (08:59)
[2022-10-07] MEDS: buPROPion XL 300 MG TAB.ER.24H PO SCH (08:59)
[2022-10-07 12:44] LABS: Glucose,Whole Blood 157 mg/dL (70-110)
--- NOTE | 2022-10-07 14:14 | P.DS ---
Providers Date of admission: 09/29/22 04:02 He was seen today for review of his progress. and his disposition plan was discussed at length at team meeting. Despite th;e consistent plan by the treatment ream to reach out and to engage him in follow up of his multiple medical problems : DM, CV and his psychiaric problem of Depression and anxiety, his attitude has remained unchanged. HE was offered alternative to his option of being homelessness to stablize his diabetes control. He has had mutliple DKA and more recently chose to have insulin injection as his suicidal attempt (preferred method). He was seen by IM Consultation with adjustment of his two insulin formalations:'. in additon to his psychotropic Rx; Gabapentin, Remeron, and more recently he was started on lithium . He may also be misusing Xanax and cannabis use was likely related to his homelessness life style. He was many options to have safe zhao ; he refused. His occupational level was erratic: he was terminated from his recent employment. He was not welcome in his parents' home in view of his repeated suicidal ideation which was impulsive in nature. He did not want to relocate nor to sign himself to a highly structured therapeurtic milieu. He was fully aware of the medical risks of insulin "overdose" and repated DKA with numerous EMERGENCY visits for the past 1-2 years. when he was seen , he was in reclining positon ruminating over his plan to leave the hospital and to return to roam around in the mall in the [facility] area. He learnt how to survive in meeting his nutritional needs ; hwoever, his follow up was primariy through his PCP clinic. HE understand he would not be given more than 14 day supply of insulin and psychotropic Rx. In view of his documented impulsivity, he would be offered reduced no of Rxs : remeron was discontinued and Xanax. He would continue to ahve a limited supply (max 14 days) of GABApentin and Wellbutrin: lithium and xanax would be discontinued. His MSE was unremakrable for his relentless resolute to continue with his life style: homelessness and his failue to engage with the outreach [facility] team on a regular basis. Speech, coherent. his interest in the video justin has unchanged . Affect: euthymic congruent with his thought content. No hallucinations. No delusions. No preoccupation with suicidal ideation. He denied any marked craving for substances . He did not have ideas of harm to others ; no gun posession was evident. Cognition: fully oriented. responding to questions approximately while he refused alll interventions to problem solve with alternative options. He tended to minimize the consequences of his lifestyle related risks of ignoring his DM and his need to be on regular nutritional regimen for his diabetes to be under better control. Insight and jugement was absent or highly marginal. Diagnosis; Depressive disorder atypical NOS, Anciety disorder NOS. rule out Personality disorder, mixed . Substance use disorder high in the differential list Cannabis. Use disorder Discharge plan: He was seen earlier for Rx pharmacy dispensing his Insulin on a more controlled fashion. ;however, he preferred not to follow through. Formal Psychaitric follow up and resources were clearly explained to him on a no of sessions. He refused however, to consider [facility] community intensive program. to disupt his cycle of hospitilazation and homelessness and substnace related community living skills. Rx; Limited supply was given Attending physician: Fer Merlos MD Consults: 09/29/22 04:17 Consult Physician Routine Consulting Provider: Brown Valenzuela Consult Reason/Comments: For H & P for Medical Follow Up Do you want consulting provider notified?: Yes Primary care physician: Brown Valenzuela Patient Condition at Discharge: Fair Plan - Discharge Summary Discharge Rx Participant: Yes New Discharge Prescriptions: [place] Carbonate 150 mg PO BID 30 Days #60 cap Mirtazapine [Remeron] 7.5 mg PO HS 30 Days #15 tab Insulin Detemir (Levemir) [Levemir] 28 unit SQ DAILY@0700 30 Days #1 each INSULIN ASPART (NovoLOG) [NovoLOG (formulary)] 6 unit SQ AC-TID each buPROPion XL [Wellbutrin XL] 300 mg PO DAILY 30 Days #30 tab Continue INSULIN ASPART (NovoLOG) [NovoLOG (formulary)] 10 unit SQ AC-TID Losartan [Cozaar] 50 mg PO DAILY 30 Days #30 tab Gabapentin 600 mg PO TID 14 Days #42 tab Discontinued Mirtazapine [Remeron] 45 mg PO HS Insulin Detemir (Levemir) [Levemir] 25 unit SQ DAILY Discharge Medication List INSULIN ASPART (NovoLOG) [NovoLOG (formulary)] 10 unit SQ AC-TID 06/29/21 [History] Gabapentin 600 mg PO TID 14 Days #42 tab 10/03/22 [Rx] INSULIN ASPART (NovoLOG) [NovoLOG (formulary)] 6 unit SQ AC-TID each 10/03/22 [Rx] Insulin Detemir (Levemir) [Levemir] 28 unit SQ DAILY@0700 30 Days #1 each 10/03/22 [Rx] [place] Carbonate 150 mg PO BID 30 Days #60 cap 10/03/22 [Rx] Losartan [Cozaar] 50 mg PO DAILY 30 Days #30 tab 10/03/22 [Rx] Mirtazapine [Remeron] 7.5 mg PO HS 30 Days #15 tab 10/03/22 [Rx] buPROPion XL [Wellbutrin XL] 300 mg PO DAILY 30 Days #30 tab 10/03/22 [Rx] Follow up Appointment(s)/Referral(s): Brown Valenzuela MD [Primary Care Provider] - 1-2 days Activity/Diet/Wound Care/Special Instructions: Avoid the use of street drugs and alcohol. Take all medications as prescribed. When you are in need of refills on your medications, please contact your medical provider and/or outpatient psychiatrist to have this done. Please go to scheduled outpatient appointments for aftercare treatment. If symptoms return or become worse, call the crisis line at and/or go to the nearest emergency room for evaluation. Discharge Disposition: OTHER INSTITUTION NOT DEFINED
== END 2022-10-07 14:58 | disposition home or self-care (01) | DRG 754 ==
LOC: EC 01:55 → 3MHU 04:02
PROVIDERS: ADMIT Psychiatry & Neurology Psychiatry; ATTEND Psychiatry & Neurology Psychiatry
DX: F32.9 Major depressive disorder, single episode, unspecified (principal); F12.90 Cannabis use, unspecified, uncomplicated; E10.69 Type 1 diabetes mellitus with other specified complication; F17.200 Nicotine dependence, unspecified, uncomplicated; F60.3 Borderline personality disorder; F60.89 Other specific personality disorders; K31.84 Gastroparesis; R45.851 Suicidal ideations; Z59.00 Homelessness unspecified; Z79.4 Long term (current) use of insulin; Z91.51 Personal history of suicidal behavior
CPT/HCPCS: 36415; 80048; 80178; 80306; 81003; 82075; 83036; 85025; 87635; 99285

== ENCOUNTER 2022-10-14 08:20 | Inpatient (IN) | payer OTHER ==
[2022-10-14 08:37] LABS: Glucose,Whole Blood >600 mg/dL (70-110)
--- NOTE | 2022-10-14 08:52 | ED ---
General Adult HPI - General Chief complaint: Nausea/Vomiting/Diarrhea Stated complaint: Nausea, vomiting Time Seen by Provider: 10/14/22 08:24 Source: EMS Mode of arrival: EMS Limitations: no limitations - History of Present Illness Initial comments: Dictation was produced using [employer] dictation software. please excuse any grammatical, word or spelling errors. Chief Complaint: 27-year-old male presents to the emergency department yet again for DKA History of Present Illness: Patient's a 27-year-old male he has extensive history of DKA. Patient unable to find his present illness. Patient brought in by EMS from home. Patient is lethargic and unable to provide detailed history present illness. Patient only able to tell me that he feels "shitty." Unable to obtain ROS secondary to mental status - Related Data Home Medications Medication Instructions Recorded Confirmed INSULIN ASPART (NovoLOG) [NovoLOG 10 unit SQ AC-TID 06/29/21 09/22/22 (formulary)] Previous Rx's Medication Instructions Recorded Gabapentin 600 mg PO TID 14 Days #42 tab 10/03/22 INSULIN ASPART (NovoLOG) [NovoLOG 6 unit SQ AC-TID each 10/03/22 (formulary)] Insulin Detemir (Levemir) [Levemir] 28 unit SQ DAILY@0700 30 Days #1 10/03/22 each [place] Carbonate 150 mg PO BID 30 Days #60 cap 10/03/22 Losartan [Cozaar] 50 mg PO DAILY 30 Days #30 tab 10/03/22 Mirtazapine [Remeron] 7.5 mg PO HS 30 Days #15 tab 10/03/22 buPROPion XL [Wellbutrin XL] 300 mg PO DAILY 30 Days #30 tab 10/03/22 Allergies Allergy/AdvReac Type Severity Reaction Status Date / Time No Known Allergies Allergy Verified 10/14/22 08:25 Review of Systems ROS Statement: Those systems with pertinent positive or pertinent negative responses have been documented in the HPI. ROS Other: All systems not noted in ROS Statement are negative. Past Medical History Past Medical History: Asthma, Diabetes Mellitus, Neurologic Disorder, Skin Disorder Additional Past Medical History / Comment(s): IDDM type I, neuropathy bilateral feet, DKA, eczema. History of Any Multi-Drug Resistant Organisms: None Reported Past Surgical History: Adenoidectomy Additional Past Surgical History / Comment(s): 2002 Past Anesthesia/Blood Transfusion Reactions: No Reported Reaction Past Psychological History: Anxiety, Depression Smoking Status: Current every day smoker, Vaper Past Alcohol Use History: None Reported Past Drug Use History: None Reported - Past Family History Mother Family Medical History: CVA/TIA Additional Family Medical History / Comment(s): TIA Father Family Medical History: Hyperlipidemia, Hypertension Additional Family Medical History / Comment(s): . General Exam - General Exam Comments Initial Comments: PHYSICAL EXAM: General Impression: Lethargic, pale, smells of acetone HEENT: Normocephalic atraumatic, extra-ocular movements intact, pupils equal and reactive to light bilaterally, dry mucous membranes Cardiovascular: Heart regular rate and rhythm Chest: k[place]uls respirations Abdomen: abdomen soft, non-tender, non-distended, no organomegaly Musculoskeletal: Pulses present and equal in all extremities, no peripheral edema Motor: no focal deficits noted Neurological: CN II-XII grossly intact, no focal motor or sensory deficits noted Skin: Intact with no visualized rashes Limitations: no limitations Course Vital Signs 10/14/22 08:23 Temperature 97.8 F Pulse Rate 126 H Respiratory 22 Rate Blood Pressure 136/85 O2 Sat by Pulse 95 Oximetry - Reevaluation(s) Reevaluation #1: 10/14/22 08:51 Patient seen and evaluated in ER room #10. Patient's clinical presentation suggests recurrent diabetic ketoacidosis. Chart review shows that patient hasn't been admitted several times over the course of the last several months. He is an admitted multiple occasions for DKA. EKG Findings - EKG Comments: EKG Findings:: My EKG interpretation: Ventricular rate 127, sinus tachycardia, FL interval 172, QRS 90, QTC 38. No FL prolongation, no QTC prolongation, no ST or T-wave changes noted. EKG compared to september 12 2022 showing no changes. Overall, this EKG is unremarkable Medical Decision Making - Medical Decision Making Was pt. sent in by a medical professional or institution (, PA, LANDSCAPING CREW LEADER, urgent care, hospital, or fci...) When possible be specific @ -No Did you speak to anyone other than the patient for history (EMS, parent, family, police, friend...)? What history was obtained from this source @ -No Did you review nursing and triage notes (agree or disagree)? Why? @ -I reviewed and agree with nursing and triage notes Were old charts reviewed (outside hosp., previous admission, EMS record, old EKG, old radiological studies, urgent care reports/EKG's, fci records)? Report findings @ -Old charts are reviewed showing that patient had been admitted to the hospital a Less amount of times for DKA. His recent discharge summary reviewed showing that patient had also been evaluated for psych reasons. Differential Diagnosis (chest pain, altered mental status, abdominal pain women, abdominal pain men, vaginal bleeding, musculoskeletal, weakness, fever, dyspnea, syncope, headache, dizziness, GI bleed, back pain, seizure, CVA, palpatations, mental health)? @ -Differential Weakness: Hypoglycemia, shock, sepsis, hyponatremia, anemia, infection, SD, ETOH, adverse medicine reaction, overdose, stroke, this is not meant to be an all-inclusive list. EKG interpreted by me (3pts min.). @ -See above X-rays interpreted by me (1pt min.). @ -None done CT interpreted by me (1pt min.). @ -None done U/S interpreted by me (1pt. min.). @ -None done What testing was considered but not performed or refused? (CT, X-rays, U/S, labs)? Why? @ -None What meds were considered but not given or refused? Why? @ -None Did you discuss the management of the patient with other professionals (professionals i.e. , PA, LANDSCAPING CREW LEADER, lab, RT, psych nurse, clinical social work therapist, trimmer operator three knife, t eacher, zoology technical officer, geriatric case manager)? Give summary @ -No Was smoking cessation discussed for >3mins.? @ -No Was critical care preformed (if so, how long)? @ -Yes, 33 minutes Were there social determinants of health that impacted care today? How? (Homelessness, low income, unemployed, alcoholism, drug addiction, transportation, low edu. Level, literacy, decrease access to med. care, longterm, rehab)? @ -No Was there de-escalation of care discussed even if they declined (Discuss DNR or withdrawal of care, Hospice)? DNR status @ -No What co-morbidities impacted this encounter? (DM, HTN, Smoking, COPD, CAD, Ca ncer, CVA, ARF, Chemo, Hep., AIDS, mental health diagnosis, sleep apnea, morbid obesity)? @ -None Was patient admitted / discharged? Hospital course, mention meds given and route, prescriptions, significant lab abnormalities, going to OR and other pertinent info. @ -27-year-old male presents to the emergency department yet again for DKA. V ital signs upon arrival shows tachycardia. Labs reviewed showing DKA again. PH 7.11, lactulose and 5. Patient started on DKA protocol. Patient mid to the ICU. Undiagnosed new problem with uncertain prognosis? @ -No Drug Therapy requiring intensive monitoring for toxicity (Heparin, Nitro, Insulin, Cardizem)? @ -yes, insulin drip Were any procedures done? @ -No Diagnosis/symptom? Acute, or Chronic, or Acute on Chronic? Uncomplicated (without systemic symptoms) or Complicated (systemic symptoms)? @ -1. Acute complicated DKA Side effects of treatment? @ -No Exacerbation, Progression, or Severe Exacerbation? @ -No Poses a threat to life or bodily function? How? (Chest pain, USA, SD, pneumonia, PE, COPD, DKA, ARF, appy, cholecystitis, CVA, Diverticulitis, Homicidal, Suicidal, threat to staff... and all critical care pts) @ -yes - Lab Data Result diagrams: 10/14/22 08:56 10/14/22 08:56 Lab Results 10/14/22 10/14/22 10/14/22 Range/Units 08:35 08:56 08:56 WBC 20.3 H (3.8-10.6) k/uL RBC 4.78 (4.30-5.90) m/uL Hgb 14.6 (13.0-17.5) gm/dL Hct 49.0 (39.0-53.0) % MCV 102.5 H D (80.0-100.0) fL MCH 30.6 (25.0-35.0) pg MCHC 29.8 L (31.0-37.0) g/dL RDW 13.3 (11.5-15.5) % Plt Count 539 H (150-450) k/uL MPV 7.8 Neutrophils % 84 % Lymphocytes % 11 % Monocytes % 3 % Eosinophils % 0 % Basophils % 1 % Neutrophils # 17.1 H (1.3-7.7) k/uL Lymphocytes # 2.3 (1.0-4.8) k/uL Monocytes # 0.6 (0-1.0) k/uL Eosinophils # 0.0 (0-0.7) k/uL Basophils # 0.1 (0-0.2) k/uL Hypochromasia Marked Macrocytosis Slight VBG pH (7.31-7.41) VBG pCO2 (37-51) mmHg VBG HCO3 (24-28) mmol/L Sodium 139 (137-145) mmol/L Potassium 5.4 H (3.5-5.1) mmol/L Chloride 96 L (98-107) mmol/L Carbon Dioxide <5 L* (22-30) mmol/L Anion Gap mmol/L BUN 32 H (9-20) mg/dL Creatinine 1.42 H (0.66-1.25) mg/dL Est GFR (CKD-EPI)AfAm 79 (>60 ml/min/1.73 sqM) Est GFR (CKD-EPI)NonAf 69 (>60 ml/min/1.73 sqM) Glucose 702 H* (74-99) mg/dL POC Glucose (mg/dL) >600 H (70-110) mg/dL POC Glu Design Engineering Technician ID Selena Fofana Acetone, Qual Positive (Negative) 10/14/22 10/14/22 Range/Units 09:31 10:26 WBC (3.8-10.6) k/uL RBC (4.30-5.90) m/uL Hgb (13.0-17.5) gm/dL Hct (39.0-53.0) % MCV (80.0-100.0) fL MCH (25.0-35.0) pg MCHC (31.0-37.0) g/dL RDW (11.5-15.5) % Plt Count (150-450) k/uL MPV Neutrophils % % Lymphocytes % % Monocytes % % Eosinophils % % Basophils % % Neutrophils # (1.3-7.7) k/uL Lymphocytes # (1.0-4.8) k/uL Monocytes # (0-1.0) k/uL Eosinophils # (0-0.7) k/uL Basophils # (0-0.2) k/uL Hypochromasia Macrocytosis VBG pH 7.11 L* (7.31-7.41) VBG pCO2 22 L (37-51) mmHg VBG HCO3 7 L* (24-28) mmol/L Sodium (137-145) mmol/L Potassium (3.5-5.1) mmol/L Chloride (98-107) mmol/L Carbon Dioxide (22-30) mmol/L Anion Gap mmol/L BUN (9-20) mg/dL Creatinine (0.66-1.25) mg/dL Est GFR (CKD-EPI)AfAm (>60 ml/min/1.73 sqM) Est GFR (CKD-EPI)NonAf (>60 ml/min/1.73 sqM) Glucose (74-99) mg/dL POC Glucose (mg/dL) 570 H (70-110) mg/dL POC Glu Design Engineering Technician ID Selena Fofana Acetone, Qual (Negative) Disposition Clinical Impression: DKA (diabetic ketoacidosis) Disposition: ADMITTED IP TO THIS [facility] Condition: Critical Referrals: Brown Valenzuela MD [Primary Care Provider] - 1-2 days Decision Time: 11:28
[2022-10-14] MEDS ORDERED: Potassium Replacement Protocol 1 EACH MISC MISCELLANE PRN (08:54)
[2022-10-14] MEDS ORDERED: Magnesium Replacement Protocol 1 EACH MISC MISCELLANE PRN (08:54)
[2022-10-14] MEDS ORDERED: INSULIN REGULAR BOLUS (FROM DRIP BAG) IV ONE (08:54)
[2022-10-14] MEDS ORDERED: DEXTROSE 50% SYRINGE 50 ML IVP PRN ×2 (08:54)
[2022-10-14] MEDS ORDERED: SODIUM CHLORIDE 0.9% 1,000 ML IV SCH (09:00)
[2022-10-14 09:18] LABS: Basophils # (A) 0.1 k/uL (0-0.2); Basophils % (A) 1 %; Eosinophils % (A) 0 %; HGB 14.6 gm/dL (13.0-17.5); Hypochromasia Marked; Lymphocytes # (A) 2.3 k/uL (1.0-4.8); Lymphocytes % (A) 11 %; MCH 30.6 pg (25.0-35.0); MCHC 29.8 g/dL (31.0-37.0); Macrocytosis Slight; Mean Platelet Volume 7.8; Monocytes # (A) 0.6 k/uL (0-1.0); Monocytes % (A) 3 %; Neutrophils # (A) 17.1 k/uL (1.3-7.7); Neutrophils % (A) 84 %; Platelet Count 539 k/uL (150-450); RBC 4.78 m/uL (4.30-5.90); RDW 13.3 % (11.5-15.5); WBC 20.3 k/uL (3.8-10.6)
[2022-10-14 09:20] LABS: MCV 102.5 fL (80.0-100.0)
[2022-10-14 09:23] LABS: African American GFR (CKD) 79 (>60 ml/min/1.73 sqM); Blood Urea Nitrogen 32 mg/dL (9-20); Chloride 96 mmol/L (98-107); Non-African American GFR(CKD) 69 (>60 ml/min/1.73 sqM); Potassium 5.4 mmol/L (3.5-5.1); Sodium 139 mmol/L (137-145)
[2022-10-14] MEDS: INSULIN REGULAR 100 UNIT in SODIUM CHLORIDE 0.9% 100 ML IV SCH ×2 (09:27→20:41)
[2022-10-14 09:48] LABS: Carbon Dioxide <5 mmol/L (22-30); Glucose 702 mg/dL (74-99)
[2022-10-14 10:21] LABS: VBG PH 7.11 (7.31-7.41)
[2022-10-14 10:28] LABS: Glucose,Whole Blood 570 mg/dL (70-110)
[2022-10-14] MEDS ORDERED: NALOXONE 0.4 MG/ML 1 ML VIAL IV PRN (11:23)
[2022-10-14 11:26] LABS: Glucose,Whole Blood 419 mg/dL (70-110)
[2022-10-14 12:11] LABS: Potassium 4.8 mmol/L (3.5-5.1)
[2022-10-14 12:21] LABS: Glucose,Whole Blood 366 mg/dL (70-110)
[2022-10-14 12:42] LABS: Potassium 4.6 mmol/L (3.5-5.1)
[2022-10-14 13:28] LABS: Glucose,Whole Blood 279 mg/dL (70-110)
[2022-10-14] MEDS: D5-0.45% NACL WITH KCL 20MEQ/L 1,000 ML IV SCH ×2 (13:29→20:43)
--- NOTE | 2022-10-14 13:56 | P.CNPUL ---
History of Present Illness Consult date: 10/14/22 Requesting physician: Brown Valenzuela Reason for consult: other (Critical care management) Chief complaint: Nausea vomiting weakness History of present illness: This is a 27-year-old male patient with a known history of diabetes mellitus, type I and multiple admissions for DKA. Has has a history of anxiety/depression, chronic ongoing tobacco dependence, diabetic neuropathy and he was brought into the emergency room by EMS after being lethargic at home. He was also having nausea and vomiting and generalized weakness. He has had a history of medication noncompliance. Presenting bicarb of 6. Anion gap 36. Blood sugar 578 acetone positive. Sodium 143. Potassium 4.6. BUN 39. Cr eatinine 1.59. White count 20.3. Hemoglobin 14.6. He is seen in consultation in the emergency department. He is currently sitting up on the stretcher. Having nausea and vomiting. He is quite thin. He is maintaining O2 saturations in the 90s on room air. He's afebrile. Currently in sinus tachycardia in the 130s. Blood pressure stable. He is on a insulin drip at 8 units per hour. He has D5.45 with 20 of KCl at 150 ML's per hour. Remains in the DKA protocol. Review of Systems REVIEW OF SYSTEMS: CONSTITUTIONAL: Positive for lethargy, generalized weakness. Positive for weight loss. EYES: Denies change in vision. EARS, NOSE, MOUTH, THROAT: Denies headaches, denies sore throat. CARDIOVASCULAR: Denies chest pain, palpitations or syncopal episodes. RESPIRATORY: Denies shortness of breath, cough, congestion or hemoptysis. GASTROINTESTINAL: Positive for nausea and vomiting GENITOURINARY: Denies hematuria, denies infections. MUSKULOSKELETAL: Denies pain, denies swelling. INTEGUMENTARY: Denies rash, denies eczema. NEUROLOGICAL: Denies recent memory loss, no recent seizure activity. PSYCHIATRIC: Denies anxiety, denies depression. HEMATOLOGIC/LYMPHATIC: Denies anemia, denies enlarged lymph nodes. Past Medical History Past Medical History: Asthma, Diabetes Mellitus, Neurologic Disorder, Skin Disorder Additional Past Medical History / Comment(s): IDDM type I, neuropathy bilateral feet, DKA, eczema. History of Any Multi-Drug Resistant Organisms: None Reported Past Surgical History: Adenoidectomy Additional Past Surgical History / Comment(s): 2002 Past Anesthesia/Blood Transfusion Reactions: No Reported Reaction Past Psychological History: Anxiety, Depression Smoking Status: Current every day smoker, Vaper Past Alcohol Use History: None Reported Past Drug Use History: None Reported - Past Family History Mother Family Medical History: CVA/TIA Additional Family Medical History / Comment(s): TIA Father Family Medical History: Hyperlipidemia, Hypertension Additional Family Medical History / Comment(s): . Medications and Allergies Home Medications Medication Instructions Recorded Confirmed Type Insulin Detemir (Levemir) [Levemir] 28 unit SQ DAILY@0700 30 Days #1 10/03/22 10/14/22 Rx each Gabapentin 600 mg PO DIRECTED 10/14/22 10/14/22 History INSULIN ASPART (NovoLOG) [NovoLOG 6 - 10 unit SQ AC-TID 10/14/22 10/14/22 History (formulary)] Naper Carbonate 150 mg PO DIRECTED 10/14/22 10/14/22 History Losartan [Cozaar] 50 mg PO DIRECTED 10/14/22 10/14/22 History Mirtazapine [Remeron] 7.5 mg PO DIRECTED 10/14/22 10/14/22 History buPROPion XL [Wellbutrin XL] 300 mg PO DIRECTED 10/14/22 10/14/22 History Allergies Allergy/AdvReac Type Severity Reaction Status Date / Time No Known Allergies Allergy Verified 10/14/22 12:49 Physical Exam Vitals: Vital Signs Temp Pulse Resp BP Pulse Ox 10/14/22 11:26 97.9 F 130 H 20 113/73 98 10/14/22 08:23 97.8 F 126 H 22 136/85 95 Intake and Output 10/13/22 10/14/22 10/14/22 22:59 06:59 14:59 Intake Total 27.603 Balance 27.603 Intake: Intake, IV Titration 27.603 Amount Insulin Regular 100 unit 27.603 In Sodium Chloride 0.9% 100 ml @ 0.1 UNITS/KG/HR 6.872 mls/hr IV .[id number] [facility] Rx#:[id number] Other: Weight 68.039 kg GENERAL EXAM: Alert, weak, cachectic 27-year-old male, on room air, fairly comf ortable. HEAD: Normocephalic. EYES: Normal reaction of pupils, equal size. NOSE: Clear with pink turbinates. THROAT: No erythema or exudates. NECK: No masses, no JVD. CHEST: No chest wall deformity. LUNGS: Equal air entry with no crackles, wheeze, rhonchi or dullness. CVS: S1 and S2 normal with no audible murmur, regular rhythm. ABDOMEN: No hepatosplenomegaly, normal bowel sounds, no guarding or rigidity. SPINE: No scoliosis or deformity SKIN: No rashes CENTRAL NERVOUS SYSTEM: No focal deficits, tone is normal in all 4 extremities. EXTREMITIES: There is no peripheral edema. No clubbing, no cyanosis. Peripheral pulses are intact. Results - Laboratory Findings CBC and BMP: 10/14/22 08:56 10/14/22 12:20 Abnormal lab findings: Abnormal Labs 10/14/22 10/14/22 10/14/22 08:35 08:56 08:56 WBC 20.3 H MCV 102.5 H D MCHC 29.8 L Plt Count 539 H Neutrophils # 17.1 H VBG pH VBG pCO2 VBG HCO3 Potassium 5.4 H Chloride 96 L Carbon Dioxide <5 L* BUN 32 H Creatinine 1.42 H Glucose 702 H* POC Glucose (mg/dL) >600 H Phosphorus 10/14/22 10/14/22 10/14/22 09:31 10:26 11:24 WBC MCV MCHC Plt Count Neutrophils # VBG pH 7.11 L* VBG pCO2 22 L VBG HCO3 7 L* Potassium Chloride Carbon Dioxide BUN Creatinine Glucose POC Glucose (mg/dL) 570 H 419 H Phosphorus 10/14/22 10/14/22 10/14/22 11:36 11:36 12:19 WBC MCV MCHC Plt Count Neutrophils # VBG pH VBG pCO2 VBG HCO3 Potassium Chloride Carbon Dioxide 6 L* BUN 39 H Creatinine 1.49 H Glucose 469 H POC Glucose (mg/dL) 366 H Phosphorus 6.5 H 10/14/22 10/14/22 10/14/22 12:20 12:20 13:27 WBC MCV MCHC Plt Count Neutrophils # VBG pH VBG pCO2 VBG HCO3 Potassium Chloride Carbon Dioxide 7 L* BUN 39 H Creatinine 1.51 H Glucose 381 H POC Glucose (mg/dL) 279 H Phosphorus Assessment and Plan Assessment: Acute diabetic ketoacidosis, secondary to medical noncompliance. Patient has had multiple episodes of DKA, last hospitalization was on 09/26/2022. Anion gap metabolic acidosis, secondary to DKA. Acute kidney injury secondary to above Type 1 diabetes mellitus, poor compliance Diabetic neuropathy History of ongoing tobacco use/vaping History of previous drug overdose and suicide attempt History of major depression, and generalized anxiety History of chronic marijuana use Homelessness Plan: The patient was seen and evaluated Medications and labs reviewed Continue with the DKA protocol To be admitted to the intensive care unit Titrate the insulin drip for blood sugar levels Fluid resuscitation Hourly glucose monitoring Zofran for nausea and vomiting IV Protonix We will continue to follow and make further recommendations based on his clinical status I have personally seen and examined the patient, performed the documentation and the assessment and plan as written. Number of minutes spent on the visit: 20.
[2022-10-14 14:40] LABS: Glucose,Whole Blood 249 mg/dL (70-110)
[2022-10-14] MEDS ORDERED: ONDANSETRON 4 MG/2 ML VIAL IVP STA (14:49)
[2022-10-14 15:31] LABS: Glucose,Whole Blood 228 mg/dL (70-110)
[2022-10-14 16:35] LABS: Glucose,Whole Blood 211 mg/dL (70-110)
[2022-10-14 17:36] LABS: Glucose,Whole Blood 206 mg/dL (70-110)
[2022-10-14 18:32] LABS: Glucose,Whole Blood 177 mg/dL (70-110)
[2022-10-14 19:43] LABS: Glucose,Whole Blood 143 mg/dL (70-110)
[2022-10-14 20:40] LABS: Glucose,Whole Blood 136 mg/dL (70-110)
[2022-10-14] MEDS: MIRTAZAPINE 15 MG TAB PO SCH (20:49)
[2022-10-14] MEDS: LITHIUM CARBONATE 150 MG CAP PO SCH (20:49)
[2022-10-14] MEDS: GABAPENTIN 300 MG CAP PO SCH (21:04)
[2022-10-14 21:28] LABS: ALT 33 U/L (4-49); AST 22 U/L (17-59); African American GFR (CKD) >90 (>60 ml/min/1.73 sqM); Albumin 4.6 g/dL (3.5-5.0); Alkaline Phosphatase 125 U/L (38-126); Anion Gap 18 mmol/L; Blood Urea Nitrogen 37 mg/dL (9-20); Calcium 9.1 mg/dL (8.4-10.2); Carbon Dioxide 19 mmol/L (22-30); Chloride 108 mmol/L (98-107); Glucose 155 mg/dL (74-99); Non-African American GFR(CKD) >90 (>60 ml/min/1.73 sqM); Sodium 145 mmol/L (137-145); Total Bilirubin 0.7 mg/dL (0.2-1.3); Total Protein 7.4 g/dL (6.3-8.2)
[2022-10-14 21:39] LABS: Glucose,Whole Blood 150 mg/dL (70-110)
[2022-10-14] MEDS: SODIUM CHLORIDE 0.9% 1,000 ML IV SCH (22:33)
[2022-10-14 22:45] LABS: Glucose,Whole Blood 179 mg/dL (70-110)
[2022-10-14 22:45] LABS: Glucose,Whole Blood 193 mg/dL (70-110)
[2022-10-15] MEDS: SODIUM CHLORIDE 0.9% 1,000 ML IV SCH ×3 (05:55→16:44)
[2022-10-15] MEDS: INSULIN DETEMIR (LEVEMIR) 100 UNIT/ML SYR SQ SCH (05:56)
[2022-10-15 06:08] LABS: Glucose,Whole Blood 435 mg/dL (70-110)
[2022-10-15 06:12] LABS: Glucose,Whole Blood 419 mg/dL (70-110)
[2022-10-15] MEDS: INSULIN ASPART (NovoLOG) 100 UNIT/ML VIAL SQ SCH ×4 (06:27→20:46)
[2022-10-15 06:53] LABS: Glucose,Whole Blood 477 mg/dL (70-110)
[2022-10-15 07:20] LABS: African American GFR (CKD) >90 (>60 ml/min/1.73 sqM); Anion Gap 24 mmol/L; Blood Urea Nitrogen 29 mg/dL (9-20); Calcium 8.4 mg/dL (8.4-10.2); Carbon Dioxide 11 mmol/L (22-30); Chloride 103 mmol/L (98-107); Glucose 458 mg/dL (74-99); Non-African American GFR(CKD) >90 (>60 ml/min/1.73 sqM); Potassium 4.6 mmol/L (3.5-5.1); Sodium 138 mmol/L (137-145)
[2022-10-15 08:16] LABS: Glucose,Whole Blood 254 mg/dL (70-110)
[2022-10-15] MEDS: GABAPENTIN 300 MG CAP PO SCH ×3 (08:24→20:47)
[2022-10-15] MEDS: LOSARTAN 50 MG TAB PO SCH (08:24)
[2022-10-15] MEDS: LITHIUM CARBONATE 150 MG CAP PO SCH ×2 (08:24→20:47)
[2022-10-15] MEDS: buPROPion XL 300 MG TAB.ER.24H PO SCH (08:25)
--- NOTE | 2022-10-15 11:18 | P.PN ---
Subjective Progress Note Date: 10/15/22 This is a 27-year-old male patient with a known history of diabetes mellitus, type I and multiple admissions for DKA. Has has a history of anxiety/depression, chronic ongoing tobacco dependence, diabetic neuropathy and he was brought into the emergency room by EMS after being lethargic at home. He was also having nausea and vomiting and generalized weakness. He has had a history of medication noncompliance. Presenting bicarb of 6. Anion gap 36. Blood sugar 578 acetone positive. Sodium 143. Potassium 4.6. BUN 39. Creatinine 1.59. White count 20.3. Hemoglobin 14.6. He is seen in consultat ion in the emergency department. He is currently sitting up on the stretcher. Having nausea and vomiting. He is quite thin. He is maintaining O2 saturations in the 90s on room air. He's afebrile. Currently in sinus tachycardia in the 130s. Blood pressure stable. He is on a insulin drip at 8 units per hour. He has D5.45 with 20 of KCl at 150 ML's per hour. Remains in the DKA protocol. The patient is seen today 10/15/2022 in follow-up on the selective care unit. He is currently resting in bed. Awake and alert in no acute distress. No further nausea vomiting. No diarrhea. He has normal saline at 150 MLS per hour. He is maintaining O2 saturations in the 90s on room air. She's been transitioned back to Levemir and NovoLog sliding scale. Sodium 138. Potassium 4.6. Bicarb 11. BUN 29. Creatinine 1.00. Blood sugar 458. Most recent Accu- Chek at 8 AM 254. Objective - Vital Signs Vital signs: Vital Signs Temp 97.8 F 10/15/22 08:21 Pulse 126 H 10/15/22 08:21 Resp 16 10/15/22 08:21 BP 105/68 10/15/22 08:21 Pulse Ox 98 10/15/22 08:21 FiO2 Intake & Output 10/14/22 10/15/22 10/15/22 18:59 06:59 18:59 Intake Total 27.603 1054.990 Balance 27.603 1054.990 Weight 68.039 kg Intake: Intake, IV Titration 27.603 1054.990 Amount Insulin Regular 100 unit 27.603 54.990 In Sodium Chloride 0.9% 100 ml @ 0.1 UNITS/KG/HR 6.872 mls/hr IV .[id number] [facility] Rx#:[id number] Sodium Chloride 0.9% 1, 1000 000 ml @ 150 mls/hr IV . Q6H40M [facility] Rx#:[id number] Other: Voiding Method Toilet # Voids 1 - Exam GENERAL EXAM: Alert, cachectic 27-year-old male, BMI 18.7 kg/m, on room air, comfortable. HEAD: Normocephalic. EYES: Normal reaction of pupils, equal size. NOSE: Clear with pink turbinates. THROAT: No erythema or exudates. NECK: No masses, no JVD. CHEST: No chest wall deformity. LUNGS: Equal air entry with no crackles, wheeze, rhonchi or dullness. CVS: S1 and S2 normal with no audible murmur, regular rhythm. ABDOMEN: No hepatosplenomegaly, normal bowel sounds, no guarding or rigidity. SPINE: No scoliosis or deformity SKIN: No rashes CENTRAL NERVOUS SYSTEM: No focal deficits, tone is normal in all 4 extremities. EXTREMITIES: There is no peripheral edema. No clubbing, no cyanosis. Peripheral pulses are intact. - Labs CBC & Chem 7: 10/14/22 08:56 10/15/22 06:52 Labs: Abnormal Lab Results - Last 24 Hours (Table) 10/14/22 10/14/22 10/14/22 Range/Units 11:24 11:36 11:36 Chloride (98-107) mmol/L Carbon Dioxide 6 L* (22-30) mmol/L BUN 39 H (9-20) mg/dL Creatinine 1.49 H (0.66-1.25) mg/dL Glucose 469 H (74-99) mg/dL POC Glucose (mg/dL) 419 H (70-110) mg/dL Phosphorus 6.5 H (2.5-4.5) mg/dL 10/14/22 10/14/22 10/14/22 Range/Units 12:19 12:20 12:20 Chloride (98-107) mmol/L Carbon Dioxide 7 L* (22-30) mmol/L BUN 39 H (9-20) mg/dL Creatinine 1.51 H (0.66-1.25) mg/dL Glucose 381 H (74-99) mg/dL POC Glucose (mg/dL) 366 H (70-110) mg/dL Phosphorus (2.5-4.5) mg/dL 10/14/22 10/14/22 10/14/22 Range/Units 13:27 14:38 15:27 Chloride (98-107) mmol/L Carbon Dioxide (22-30) mmol/L BUN (9-20) mg/dL Creatinine (0.66-1.25) mg/dL Glucose (74-99) mg/dL POC Glucose (mg/dL) 279 H 249 H 228 H (70-110) mg/dL Phosphorus (2.5-4.5) mg/dL 10/14/22 10/14/22 10/14/22 Range/Units 16:32 17:34 18:29 Chloride (98-107) mmol/L Carbon Dioxide (22-30) mmol/L BUN (9-20) mg/dL Creatinine (0.66-1.25) mg/dL Glucose (74-99) mg/dL POC Glucose (mg/dL) 211 H 206 H 177 H (70-110) mg/dL Phosphorus (2.5-4.5) mg/dL 10/14/22 10/14/22 10/14/22 Range/Units 19:37 20:34 20:44 Chloride 108 H (98-107) mmol/L Carbon Dioxide 19 L (22-30) mmol/L BUN 37 H (9-20) mg/dL Creatinine (0.66-1.25) mg/dL Glucose 155 H (74-99) mg/dL POC Glucose (mg/dL) 143 H 136 H (70-110) mg/dL Phosphorus (2.5-4.5) mg/dL 10/14/22 10/14/22 10/14/22 Range/Units 21:34 22:41 22:43 Chloride (98-107) mmol/L Carbon Dioxide (22-30) mmol/L BUN (9-20) mg/dL Creatinine (0.66-1.25) mg/dL Glucose (74-99) mg/dL POC Glucose (mg/dL) 150 H 193 H 179 H (70-110) mg/dL Phosphorus (2.5-4.5) mg/dL 10/15/22 10/15/22 10/15/22 Range/Units 06:07 06:10 06:51 Chloride (98-107) mmol/L Carbon Dioxide (22-30) mmol/L BUN (9-20) mg/dL Creatinine (0.66-1.25) mg/dL Glucose (74-99) mg/dL POC Glucose (mg/dL) 435 H 419 H 477 H (70-110) mg/dL Phosphorus (2.5-4.5) mg/dL 10/15/22 10/15/22 Range/Units 06:52 08:15 Chloride (98-107) mmol/L Carbon Dioxide 11 L (22-30) mmol/L BUN 29 H (9-20) mg/dL Creatinine (0.66-1.25) mg/dL Glucose 458 H (74-99) mg/dL POC Glucose (mg/dL) 254 H (70-110) mg/dL Phosphorus (2.5-4.5) mg/dL Assessment and Plan Assessment: Acute diabetic ketoacidosis, secondary to medical noncompliance. Patient has had multiple episodes of DKA, last hospitalization was on 09/26/2022. Anion gap metabolic acidosis, secondary to DKA. Acute kidney injury secondary to above Type 1 diabetes mellitus, poor compliance Diabetic neuropathy Anorexia/cachexia with failure to thrive. BMI 18.7 kg/m History of ongoing tobacco use/vaping History of previous drug overdose and suicide attempt History of major depression, and generalized anxiety History of chronic marijuana use Homelessness Plan: The patient was seen and evaluated Medications and labs reviewed Continue with the DKA protocol Hourly glucose monitoring We will continue to follow I have personally seen and examined the patient, performed the documentation and the assessment and plan as written. Number of minutes spent on the visit: 10.
[2022-10-15 11:29] LABS: Glucose,Whole Blood 88 mg/dL (70-110)
[2022-10-15 15:05] VITALS: BMI 18.7
[2022-10-15 16:38] LABS: Glucose,Whole Blood 142 mg/dL (70-110)
[2022-10-15 20:25] LABS: Glucose,Whole Blood 311 mg/dL (70-110)
[2022-10-15] MEDS: MIRTAZAPINE 15 MG TAB PO SCH (20:47)
--- NOTE | 2022-10-15 22:55 | HP ---
HISTORY AND PHYSICAL CHIEF COMPLAINT: Diabetic ketoacidosis. HISTORY OF PRESENT ILLNESS: This gentleman is back in the hospital again with diabetic ketoacidosis. He does not take insulin. He also drinks. He was just in the hospital for a week or 2 on the psych floor for depression. He went back out and is right back in with DKA. REVIEW OF SYSTEMS: He denies any confusion, headaches, chest pain, fever, chills, abdominal pain, diarrhea, melena, hematochezia, etc. He has vomiting. He has gastroparesis. Past medical history, family history, and personal and social histories are all otherwise unchanged or unremarkable or noncontributory. He does smoke occasionally and drinks alcohol. He is essentially homeless. PHYSICAL EXAMINATION: VITAL SIGNS: Pulse is 115, blood pressure is 100/55, respirations are 35. GENERAL: He appeared to be dehydrated, lethargic, and slender. HEAD, EARS, EYES, NOSE, MOUTH, AND THROAT: Normal except for dry mucous membranes. NECK: Supple. CHEST: Clear. CARDIAC: Demonstrated normal sinus rhythm. ABDOMEN: Flat, soft, and nontender without any visceromegaly or masses. Bowel sounds are present. EXTREMITIES: Normal. Neurologically, he is intact. IMPRESSION: He is admitted to the hospital with diagnoses of: 1. Diabetic ketoacidosis. 2. Peripheral neuropathy. 3. Gastroparesis. 4. Dehydration. 5. Depression. PLAN: 1. Treat diabetic ketoacidosis. 2. Psych consult. MMODL / ALDEN: [id number] /
--- NOTE | 2022-10-15 23:20 | PN ---
PROGRESS NOTE DATE OF SERVICE: 10/15/2022 CHIEF COMPLAINT: Diabetic ketoacidosis. HISTORY OF PRESENT ILLNESS: This gentleman is doing well. Sugars are coming down. He is still a little bit lethargic. PHYSICAL EXAMINATION: CHEST: Clear. CARDIAC: Normal. ABDOMEN: Soft and nontender. IMPRESSION: 1. Diabetic ketoacidosis. 2. Depression. PLAN: 1. Advance diet and activity. 2. Await Psych consult. MMODL / IJN: [id number] /
[2022-10-16] MEDS: SODIUM CHLORIDE 0.9% 1,000 ML IV SCH ×3 (01:49→16:33)
[2022-10-16 05:49] LABS: Glucose,Whole Blood 376 mg/dL (70-110)
[2022-10-16] MEDS: INSULIN DETEMIR (LEVEMIR) 100 UNIT/ML SYR SQ SCH (05:52)
[2022-10-16] MEDS: INSULIN ASPART (NovoLOG) 100 UNIT/ML VIAL SQ SCH ×3 (05:53→16:42)
[2022-10-16 09:27] VITALS: RESP 18; TEMP 97.9
[2022-10-16] MEDS: LITHIUM CARBONATE 150 MG CAP PO SCH (10:12)
[2022-10-16] MEDS: GABAPENTIN 300 MG CAP PO SCH ×2 (10:12→15:50)
[2022-10-16] MEDS: buPROPion XL 300 MG TAB.ER.24H PO SCH (10:12)
[2022-10-16] MEDS: LOSARTAN 50 MG TAB PO SCH (10:12)
[2022-10-16 11:20] LABS: Glucose,Whole Blood 205 mg/dL (70-110)
--- NOTE | 2022-10-16 12:02 | P.CN ---
Psychiatric Consult - . Consult date: 10/16/22 Consult:: 10/16/22 11:55 Environmental Planner spoke with pts nurse Hellen over the phone today about psychiatric consult that was placed for "mental health evaluation". Patient has been seen numerous times with no significant change or benefit. 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 if patient does not have any acute change in his mental health condition then psychiatry will defer the consult request until there is SPECIFIC development or worsening of his symptoms psychiatrically then provider (or team) can contact the [facility] directly a nd relay the mental health concerns. thank you 10/16/22 12:00
[2022-10-16 16:09] VITALS: BP 122/80; PULSE 80
[2022-10-16 16:28] LABS: Glucose,Whole Blood 179 mg/dL (70-110)
--- NOTE | 2022-10-17 09:45 | DS ---
DISCHARGE SUMMARY CHIEF COMPLAINT: Diabetic ketoacidosis. HISTORY OF PRESENT ILLNESS AND PHYSICAL EXAMINATION: Details of this man's history and physical can be found in the initial workup. LABORATORY STUDIES: While he was in the hospital he had laboratory studies, details of which can be found in the laboratory section of his chart. COURSE IN THE HOSPITAL: After admission, he was placed on bedrest on intravenous fluids and placed on DKA protocol. Blood pressure came down, gap closed, he was doing well. His diet and activity were advanced and on the , he is doing well. He is discharged. He is now going to be going home to live with his mother. He will be seen in the office in several days. FINAL DIAGNOSES: 1. Diabetic ketoacidosis. 2. Depression. 3. Gastroparesis. 4. Peripheral neuropathy. OPERATIONS: None. CONSULTATIONS: Psychiatry. He is improved. MMSHANEL / ALDEN: [id number] /
== END 2022-10-16 18:56 | disposition home or self-care (01) | DRG 420 ==
LOC: EC 08:20 → 2SICU 11:24 → 3SCARD 23:36
PROVIDERS: ADMIT Family Medicine; ATTEND Family Medicine
DX: E10.10 Type 1 diabetes mellitus with ketoacidosis without coma (principal); N17.9 Acute kidney failure, unspecified; F32.9 Major depressive disorder, single episode, unspecified; F41.1 Generalized anxiety disorder; E10.42 Type 1 diabetes mellitus with diabetic polyneuropathy; E10.43 Type 1 diabetes mellitus with diabetic autonomic (poly)neuropathy; K31.84 Gastroparesis; E86.0 Dehydration; F17.290 Nicotine dependence, other tobacco product, uncomplicated; R63.0 Anorexia; J45.909 Unspecified asthma, uncomplicated; F12.90 Cannabis use, unspecified, uncomplicated; R64 Cachexia; R62.7 Adult failure to thrive; Z79.4 Long term (current) use of insulin; Z91.51 Personal history of suicidal behavior; T38.3X6A Underdosing of insulin and oral hypoglycemic [antidiabetic] drugs, initial encounter; Z91.128 Patient's intentional underdosing of medication regimen for other reason; Z68.1 Body mass index [BMI] 19.9 or less, adult; Z59.00 Homelessness unspecified
CPT/HCPCS: 36415; 80048; 80051; 80053; 82009; 82075; 82565; 82803; 82947; 84100; 84520; 85025; 93005; 96361; 96365; 96366; 96375; 99285

== ENCOUNTER 2022-10-28 03:48 | Inpatient (IN) | payer OTHER ==
[2022-10-28 03:56] LABS: Glucose,Whole Blood >600 mg/dL (70-110)
[2022-10-28] MEDS ORDERED: INSULIN REGULAR BOLUS (FROM DRIP BAG) IV ONE (04:02)
[2022-10-28] MEDS ORDERED: SODIUM CHLORIDE 0.9% 1,000 ML IV ONE (04:17)
[2022-10-28 04:21] LABS: HCT 46.3 % (39.0-53.0); HGB 13.9 gm/dL (13.0-17.5); Hypochromasia Marked; MCH 31.1 pg (25.0-35.0); MCHC 30.1 g/dL (31.0-37.0); MCV 103.5 fL (80.0-100.0); Macrocytosis Slight; Mean Platelet Volume 7.9; Platelet Count 523 k/uL (150-450); RBC 4.47 m/uL (4.30-5.90); RDW 13.2 % (11.5-15.5); WBC 46.8 k/uL (3.8-10.6)
[2022-10-28 04:28] LABS: ALT 27 U/L (4-49); AST 26 U/L (17-59); African American GFR (CKD) 61 (>60 ml/min/1.73 sqM); Albumin 4.8 g/dL (3.5-5.0); Alkaline Phosphatase 140 U/L (38-126); Blood Urea Nitrogen 33 mg/dL (9-20); Calcium 9.3 mg/dL (8.4-10.2); Chloride 97 mmol/L (98-107); Non-African American GFR(CKD) 53 (>60 ml/min/1.73 sqM); Sodium 139 mmol/L (137-145); Total Bilirubin 0.5 mg/dL (0.2-1.3); Total Protein 7.4 g/dL (6.3-8.2)
[2022-10-28] MEDS: INSULIN REGULAR 100 UNIT in SODIUM CHLORIDE 0.9% 100 ML IV SCH ×2 (04:37→17:06)
[2022-10-28 04:39] LABS: Carbon Dioxide <5 mmol/L (22-30); Glucose 803 mg/dL (74-99); Potassium 6.6 mmol/L (3.5-5.1)
[2022-10-28] MEDS: SODIUM CHLORIDE 0.9% 1,000 ML IV SCH ×2 (04:43→11:57)
[2022-10-28 05:34] LABS: Glucose,Whole Blood >600 mg/dL (70-110)
[2022-10-28 05:37] LABS: Band Neutrophils % 6 %; Lymphocytes # (M) 3.74 k/uL (1.0-4.8); Neutrophils % (M) 83 %; Nucleated Red Blood Cells 0 /100 WBC (0-0); Polychromasia Present; Total Cells Counted 100
--- NOTE | 2022-10-28 06:25 | ED ---
Altered Mental Status HPI - General Chief Complaint: GI Bleed Stated Complaint: GI Bleed Time Seen by Provider: 10/28/22 03:52 Source: EMS, RN notes reviewed Mode of arrival: EMS Limitations: altered mental status - History of Present Illness Initial Comments: EMS was called for altered mental status and suspected hematemesis. Arrived to find patient appearing delirious and having what appear to be coffee- ground/bloody emesis. Patient not able to add any history MD Complaint: confusion -: unknown Severity: moderate Consistency of Symptoms: unknown Context: diabetes Associated Symptoms: nausea/vomiting, shortness of breath Treatments Prior to Arrival: IV fluid, oxygen - Related Data Home Medications Medication Instructions Recorded Confirmed Gabapentin 600 mg PO TID 10/14/22 10/30/22 INSULIN ASPART (NovoLOG) [NovoLOG 6 - 10 unit SQ AC-TID 10/14/22 10/28/22 (formulary)] [place] Carbonate 150 mg PO BID 10/14/22 10/30/22 Losartan [Cozaar] 50 mg PO DAILY 10/14/22 10/30/22 buPROPion XL [Wellbutrin XL] 300 mg PO DAILY 10/14/22 10/30/22 Mirtazapine [Remeron] 15 mg PO HS 10/28/22 10/30/22 Previous Rx's Medication Instructions Recorded Insulin Detemir (Levemir) [Levemir] 28 unit SQ DAILY@0700 30 Days #1 10/03/22 each INSULIN ASPART (NovoLOG) [NovoLOG 8 unit SQ AC-TID #90 each 11/01/22 (formulary)] Allergies Allergy/AdvReac Type Severity Reaction Status Date / Time No Known Allergies Allergy Verified 10/28/22 07:08 Review of Systems ROS Statement: Those systems with pertinent positive or pertinent negative responses have been documented in the HPI. ROS Other: All systems not noted in ROS Statement are negative. Limitations: ROS unobtainable due to patients medical condition Constitutional: Denies: fever Past Medical History Past Medical History: Asthma, Diabetes Mellitus, Neurologic Disorder, Skin Disorder Additional Past Medical History / Comment(s): IDDM type I, neuropathy bilateral feet, DKA, eczema. History of Any Multi-Drug Resistant Organisms: None Reported Past Surgical History: Adenoidectomy Additional Past Surgical History / Comment(s): 2002 Past Anesthesia/Blood Transfusion Reactions: No Reported Reaction Past Psychological History: Anxiety, Depression Smoking Status: Current every day smoker, Vaper Past Alcohol Use History: None Reported Past Drug Use History: None Reported - Past Family History Mother Family Medical History: CVA/TIA Additional Family Medical History / Comment(s): TIA Father Family Medical History: Hyperlipidemia, Hypertension Additional Family Medical History / Comment(s): . General Exam General appearance: obtunded Head exam: Present: atraumatic, normocephalic Eye exam: Present: normal appearance. Absent: scleral icterus, conjunctival injection ENT exam: Present: mucous membranes dry Neck exam: Present: normal inspection Respiratory exam: Present: rhonchi, other (Kussmaul respiration). Absent: respiratory distress, wheezes, rales, stridor, accessory muscle use Cardiovascular Exam: Present: normal rhythm, tachycardia, systolic murmur. Absent: diastolic murmur, rubs, gallop GI/Abdominal exam: Present: soft. Absent: distended, tenderness, guarding, rebound, rigid, mass, hernia Extremities exam: Present: normal inspection, normal capillary refill. Absent: pedal edema, calf tenderness Back exam: Present: normal inspection. Absent: CVA tenderness (R), CVA tenderness (L) Neurological exam: Present: alert Skin exam: Present: warm, dry, intact, normal color. Absent: rash Course Vital Signs 10/28/22 10/28/22 10/28/22 04:07 05:33 05:45 Temperature 98.7 F Pulse Rate 126 H 122 H Respiratory 18 26 H 16 Rate Blood Pressure 112/69 112/69 O2 Sat by Pulse 98 97 Oximetry 10/28/22 10/28/22 10/28/22 06:00 06:15 06:30 Temperature Pulse Rate 123 H 124 H 128 H Respiratory 16 16 23 Rate Blood Pressure 117/66 104/56 109/61 O2 Sat by Pulse Oximetry 10/28/22 10/28/22 10/28/22 07:00 08:00 09:00 Temperature Pulse Rate 129 H 123 H 123 H Respiratory 15 16 16 Rate Blood Pressure 109/63 119/70 115/73 O2 Sat by Pulse 96 96 96 Oximetry 10/28/22 10/28/22 10/28/22 10:00 11:00 12:00 Temperature Pulse Rate 118 H 122 H 124 H Respiratory 14 16 14 Rate Blood Pressure 99/56 123/89 120/75 O2 Sat by Pulse 96 96 96 Oximetry 10/28/22 10/28/22 10/28/22 12:30 13:00 13:30 Temperature Pulse Rate 116 H 121 H 125 H Respiratory 13 13 17 Rate Blood Pressure 128/87 113/74 131/91 O2 Sat by Pulse Oximetry 10/28/22 10/28/22 10/28/22 14:00 14:57 15:00 Temperature Pulse Rate 130 H 117 H 117 H Respiratory 22 18 18 Rate Blood Pressure 127/99 105/55 105/55 O2 Sat by Pulse 97 96 98 Oximetry 10/28/22 10/28/22 10/28/22 16:00 16:14 17:00 Temperature 98.7 F Pulse Rate 120 H 123 H 121 H Respiratory 16 19 14 Rate Blood Pressure 126/91 139/102 126/83 O2 Sat by Pulse 97 99 96 Oximetry 10/28/22 10/28/22 10/28/22 18:00 19:12 20:00 Temperature Pulse Rate 116 H 117 H 117 H Respiratory 16 18 16 Rate Blood Pressure 107/69 106/73 O2 Sat by Pulse 97 96 96 Oximetry 10/28/22 10/28/22 10/28/22 21:01 22:00 23:00 Temperature 98.8 F 98.4 F Pulse Rate 112 H 120 H 115 H Respiratory 18 19 18 Rate Blood Pressure 123/90 119/75 119/75 O2 Sat by Pulse 98 97 97 Oximetry 10/29/22 10/29/22 10/29/22 02:00 04:00 08:01 Temperature Pulse Rate 115 H 116 H 133 H Respiratory 16 20 18 Rate Blood Pressure 118/66 128/88 125/84 O2 Sat by Pulse 100 Oximetry 10/29/22 10/29/22 10/29/22 09:35 10:00 12:00 Temperature 97.7 F Pulse Rate 128 H 128 H 124 H Respiratory 22 25 H 14 Rate Blood Pressure 126/89 139/103 118/79 O2 Sat by Pulse 100 97 98 Oximetry Medical Decision Making - Medical Decision Making This patient is a 27-year-old diabetic man well-known to our department who is brought by EMS for vomiting with some coffee-ground emesis and altered mental status. The patient appears consistent with previous episodes of DKA and started on fluids, insulin, other symptomatic management. The studies do confirm results consistent with moderately severe DKA Case discussed with patient's primary physician who will admit. The dot net developer is paged regarding ICU management, the mid-level did respond and see the patient in the department. Was pt. sent in by a medical professional or institution (, [facility], [facility] [facility], urgent care, hospital, or alf...) When possible be specific @ -[No] Did you speak to anyone other than the patient for history (EMS, parent, family, police, friend...)? What history was obtained from this source @ EMS personnel gave history Did you review nursing and triage notes (agree or disagree)? Why? @ -[I reviewed and agree with nursing and triage notes] Were old charts reviewed (outside hosp., previous admission, EMS record, old EKG, old radiological studies, urgent care reports/EKG's, alf records)? Report findings @ -[old charts were reviewed] Differential Diagnosis (chest pain, altered mental status, abdominal pain women, abdominal pain men, vaginal bleeding, weakness, fever, dyspnea, syncope, headache, dizziness, GI bleed, back pain, seizure, CVA, palpatations, mental health, musculoskeletal)? @ -[Differential Altered Mental Status: Hypoglycemia, DKA, hypercapnia, ETOH, overdose, CO poisoning, trauma, myxedema coma, HTN encephalopathy, infection, encephalitis, psychosis, intercranial hemorrhage, hepatic encephalopathy, meningitis, CVA, this is not meant to be an all-inclusive list EKG interpreted by me (3pts min.). @ -[As above] X-rays interpreted by me (1pt min.). @ -[None done] CT interpreted by me (1pt min.). @ -[None done] U/S interpreted by me (1pt. min.). @ -[None done] What testing was considered but not performed or refused? (CT, X-rays, U/S, labs)? Why? @ -[None] What meds were considered but not given or refused? Why? @ -[None] Did you discuss the management of the patient with other professionals (professionals i.e. [facility]AS Lucero, [employer], lab, RT, psych nurse, social economist, business lawyer, teacher, soil science technical officer, case advocate)? Give summary @ -Case discussed with admitting physician Was smoking cessation discussed for >3mins.? @ -[No] Was critical care preformed (if so, how long)? @ -[Yes, 30 minutes Were there social determinants of health that impacted care today? How? (Homelessness, low income, unemployed, alcoholism, drug addiction, tr ansportation, low edu. Level, literacy, decrease access to med. care, fci, rehab)? @ -[No] Was there de-escalation of care discussed even if they declined (Discuss DNR or withdrawal of care, Hospice)? DNR status @ -[No] What co-morbidities impacted this encounter? (DM, HTN, Smoking, COPD, CAD, Cancer, CVA, ARF, Chemo, Hep., AIDS, mental health diagnosis, sleep apnea, morbid obesity)? @ -[Diabetes Was patient admitted / discharged? Hospital course, mention meds given and route, prescriptions, significant lab abnormalities, going to OR and other pertinent info. @ -[Patient is admitted for further fluid and insulin therapy for DKA Undiagnosed new problem with uncertain prognosis? @ -[No] Drug Therapy requiring intensive monitoring for toxicity (Heparin, Nitro, Insulin, Cardizem)? @ -[IV insulin therapy Were any procedures done? @ -[No] Diagnosis/symptom? @ -[Recurrence of acute DKA Acute, or Chronic, or Acute on Chronic? @ -[Acute Uncomplicated (without systemic symptoms) or Complicated (systemic symptoms)? @ -[Complicated with mental status change and intractable vomiting Side effects of treatment? @ -[No] Exacerbation, Progression, or Severe Exacerbation? @ -[No] Poses a threat to life or bodily function? How? (Chest pain, [place], [place], pneumonia, PE, COPD, DKA, ARF, appy, cholecystitis, CVA, Diverticulitis, Homicidal, Suicidal, threat to staff... and all critical care pts) @ -[Yes, untreated DKA will progress to multiple organ system failure and - Lab Data Result diagrams: 10/31/22 04:58 10/31/22 04:58 Lab Results 10/28/22 10/28/22 10/28/22 Range/Units 03:54 04:16 04:16 WBC 46.8 H (3.8-10.6) k/uL RBC 4.47 (4.30-5.90) m/uL Hgb 13.9 (13.0-17.5) gm/dL Hct 46.3 (39.0-53.0) % MCV 103.5 H (80.0-100.0) fL MCH 31.1 (25.0-35.0) pg MCHC 30.1 L (31.0-37.0) g/dL RDW 13.2 (11.5-15.5) % Plt Count 523 H (150-450) k/uL MPV 7.9 Neutrophils % (Manual) 83 % Band Neuts % (Manual) 6 % Lymphocytes % (Manual) 8 % Monocytes % (Manual) 3 % Neutrophils # (Manual) 41.60 H (1.3-7.7) k/uL Lymphocytes # (Manual) 3.74 (1.0-4.8) k/uL Monocytes # (Manual) 1.40 H (0-1.0) k/uL Nucleated RBCs 0 (0-0) /100 WBC Polychromasia Present Hypochromasia Marked Macrocytosis Slight Sodium 139 (137-145) mmol/L Potassium 6.6 H* (3.5-5.1) mmol/L Chloride 97 L (98-107) mmol/L Carbon Dioxide <5 L* (22-30) mmol/L Anion Gap [employer] BUN 33 H (9-20) mg/dL Creatinine 1.76 H (0.66-1.25) mg/dL Est GFR (CKD-EPI)AfAm 61 (>60 ml/min/1.73 sqM) Est GFR (CKD-EPI)NonAf 53 (>60 ml/min/1.73 sqM) Glucose 803 H* (74-99) mg/dL POC Glucose (mg/dL) >600 H (70-110) mg/dL POC Glu Biblical Languages Professor ID Fer [place] Calcium 9.3 (8.4-10.2) mg/dL Total Bilirubin 0.5 (0.2-1.3) mg/dL AST 26 (17-59) U/L ALT 27 (4-49) U/L Alkaline Phosphatase 140 H (38-126) U/L Total Protein 7.4 (6.3-8.2) g/dL Albumin 4.8 (3.5-5.0) g/dL Acetone, Qual Positive (Negative) 10/28/22 Range/Units 05:32 WBC (3.8-10.6) k/uL RBC (4.30-5.90) m/uL Hgb (13.0-17.5) gm/dL Hct (39.0-53.0) % MCV (80.0-100.0) fL MCH (25.0-35.0) pg MCHC (31.0-37.0) g/dL RDW (11.5-15.5) % Plt Count (150-450) k/uL MPV Neutrophils % (Manual) % Band Neuts % (Manual) % Lymphocytes % (Manual) % Monocytes % (Manual) % Neutrophils # (Manual) (1.3-7.7) k/uL Lymphocytes # (Manual) (1.0-4.8) k/uL Monocytes # (Manual) (0-1.0) k/uL Nucleated RBCs (0-0) /100 WBC Polychromasia Hypochromasia Macrocytosis Sodium (137-145) mmol/L Potassium (3.5-5.1) mmol/L Chloride (98-107) mmol/L Carbon Dioxide (22-30) mmol/L Anion Gap BUN (9-20) mg/dL Creatinine (0.66-1.25) mg/dL Est GFR (CKD-EPI)AfAm (>60 ml/min/1.73 sqM) Est GFR (CKD-EPI)NonAf (>60 ml/min/1.73 sqM) Glucose (74-99) mg/dL POC Glucose (mg/dL) >600 H (70-110) mg/dL POC Glu Biblical Languages Professor ID Pao Le[place] Calcium (8.4-10.2) mg/dL Total Bilirubin (0.2-1.3) mg/dL AST (17-59) U/L ALT (4-49) U/L Alkaline Phosphatase (38-126) U/L Total Protein (6.3-8.2) g/dL Albumin (3.5-5.0) g/dL Acetone, Qual (Negative) - EKG Data -: EKG Interpreted by Md EKG shows normal: sinus rhythm, axis (borderline right axis deviation), interv als (normal), QRS complexes (normal) Rate: tachycardia (rate 119 bpm) Critical Care Time Critical Care Time: Yes (30 minutes) Disposition Clinical Impression: DKA (diabetic ketoacidoses) Disposition: ADMITTED IP TO THIS HOSP Is patient prescribed a controlled substance at d/c from ED?: No
[2022-10-28 06:34] LABS: Glucose,Whole Blood 455 mg/dL (70-110)
[2022-10-28] MEDS ORDERED: CALCIUM GLUCONATE IN NACL 1 GM in SALINE 1 100ML.BAG IVPB ONE (06:45)
[2022-10-28] MEDS ORDERED: SODIUM BICARB 8.4% 50 ML SYR (1 MEQ/ML) IV STA (06:45)
--- NOTE | 2022-10-28 07:24 | P.CNPUL ---
History of Present Illness Consult date: 10/28/22 Requesting physician: Shai Anaya Reason for consult: other (ICU management) Chief complaint: Nausea and vomiting and altered mental status History of present illness: I am seeing this patient in new consultation today 10/28/2022 for diabetic ketoacidosis and possible hematemesis. Patient is a 27-year-old white male with past medical history significant for type 1 diabetes mellitus with very frequent readmissions to the hospital. He also has a history of anxiety and depression, nicotine dependence, diabetic neuropathy. Patient was brought in to the emergency room this morning after EMS was called for altered mental status and possible hematemesis. Patient is currently not able to provide any information, and much of this HPI is taken from the chart. He is currently laying on his side, on room air, in no acute distress. He does not answer my questions, but will occasionally open his eyes. There is brownish clear liquid, presumably emesis, on his blankets. No carly blood noted. He is in a state of diabetic ketoacidosis with serum CO2 of less than 5, anion gap unmeasurable, and blood glucose of 803. Patient was also acetone positive. He has been started on the DKA protocol. Insulin is infusing per protocol. Normal saline is infusing at 200 ML's per hour. He is hyperkalemic with a potassium of 6.6; and was given one amp of sodium bicarb, 6 units of regular insulin, and 1 g of calcium gluconate. Recheck potassium is scheduled for 8 AM. CBC on arrival shows a WBC count of 46.8, hemoglobin 13.9, hematocrit 46.3, platelets 523. He is afebrile. Heart rate is elevated around 120 bpm, rhythm is sinus tachycardia. Kussmaul's respirations noted. Patient will be monitored in the intensive care unit until his DKA resolves. Review of Systems ROS unobtainable: due to mental status Past Medical History Past Medical History: Asthma, Diabetes Mellitus, Neurologic Disorder, Skin Diso rder Additional Past Medical History / Comment(s): IDDM type I, neuropathy bilateral feet, DKA, eczema. History of Any Multi-Drug Resistant Organisms: None Reported Past Surgical History: Adenoidectomy Additional Past Surgical History / Comment(s): 2002 Past Anesthesia/Blood Transfusion Reactions: No Reported Reaction Past Psychological History: Anxiety, Depression Smoking Status: Current every day smoker, Vaper Past Alcohol Use History: None Reported Past Drug Use History: None Reported - Past Family History Mother Family Medical History: CVA/TIA Additional Family Medical History / Comment(s): TIA Father Family Medical History: Hyperlipidemia, Hypertension Additional Family Medical History / Comment(s): . Medications and Allergies Home Medications Medication Instructions Recorded Confirmed Type Insulin Detemir (Levemir) [Levemir] 28 unit SQ DAILY@0700 30 Days #1 10/03/22 Rx each Gabapentin 600 mg PO DIRECTED 10/14/22 10/14/22 History INSULIN ASPART (NovoLOG) [NovoLOG 6 - 10 unit SQ AC-TID 10/14/22 10/14/22 History (formulary)] [place] Carbonate 150 mg PO DIRECTED 10/14/22 10/14/22 History Losartan [Cozaar] 50 mg PO DIRECTED 10/14/22 10/14/22 History Mirtazapine [Remeron] 7.5 mg PO DIRECTED 10/14/22 10/14/22 History buPROPion XL [Wellbutrin XL] 300 mg PO DIRECTED 10/14/22 10/14/22 History Allergies Allergy/AdvReac Type Severity Reaction Status Date / Time No Known Allergies Allergy Verified 10/14/22 12:49 Physical Exam Vitals: Vital Signs Temp Pulse Resp BP Pulse Ox 10/28/22 06:30 128 H 23 109/61 10/28/22 06:15 124 H 16 104/56 10/28/22 06:00 123 H 16 117/66 10/28/22 05:45 122 H 16 112/69 10/28/22 05:33 126 H 26 H 112/69 97 10/28/22 04:07 98.7 F 18 98 Intake and Output 10/27/22 10/27/22 10/28/22 14:59 22:59 06:59 Other: Weight 65.771 kg GENERAL EXAM: Lethargic, 27-year-old male, in no acute distress HEAD: Normocephalic and atraumatic EYES: Normal reaction of pupils, equal size. NOSE: Clear with pink turbinates. THROAT: No erythema or exudates. NECK: No masses, no JVD. CHEST: No chest wall deformity. LUNGS: Equal air entry with no crackles, wheeze, rhonchi or dullness. On room air. No conversational dyspnea or accessory muscle use.. CVS: S1 and S2 normal with no audible murmur, regular rhythm. No extra heart sounds ABDOMEN: No hepatosplenomegaly, active bowel sounds, no guarding or rigidity. SPINE: No scoliosis or deformity SKIN: No rashes CENTRAL NERVOUS SYSTEM: No focal deficits, tone is normal in all 4 extremities. EXTREMITIES: There is no peripheral edema, clubbing, or cyanosis. Peripheral pulses are intact. Results - Laboratory Findings CBC and BMP: 10/28/22 04:16 10/28/22 04:16 Abnormal lab findings: Abnormal Labs 10/28/22 10/28/22 10/28/22 03:54 04:16 04:16 WBC 46.8 H MCV 103.5 H MCHC 30.1 L Plt Count 523 H Neutrophils # (Manual) 41.60 H Monocytes # (Manual) 1.40 H Potassium 6.6 H* Chloride 97 L Carbon Dioxide <5 L* BUN 33 H Creatinine 1.76 H Glucose 803 H* POC Glucose (mg/dL) >600 H Alkaline Phosphatase 140 H 10/28/22 10/28/22 05:32 06:33 WBC MCV MCHC Plt Count Neutrophils # (Manual) Monocytes # (Manual) Potassium Chloride Carbon Dioxide BUN Creatinine Glucose POC Glucose (mg/dL) >600 H 455 H Alkaline Phosphatase Assessment and Plan Assessment: Acute diabetic ketoacidosis, secondary to medical noncompliance. Patient has had multiple episodes of DKA, last hospitalization was on 10/14/2022. Anion gap metabolic acidosis, secondary to DKA. Acute kidney injury, secondary to above hyperkalemia, treated with regular insulin 6 units bolus, one amp sodium bicarbonate, and one gram calcium gluconate. Questionable hematemesis, observed out of hospital. No obvious blood loss noted on my examination. Hemoglobin is stable. leukocytosis. Type 1 diabetes mellitus, poor compliance Diabetic neuropathy History of ongoing tobacco use/vaping History of previous drug overdose and suicide attempt History of major depression and generalized anxiety History of chronic marijuana use Plan: Patients medications and labs were reviewed Continue DKA protocol Recheck electrolytes and potassium at 0800 Monitor for any hematemesis or signs of acute blood loss. PRN Zofran for nausea and vomiting. Patient will be admitted to the intensive care unit I have personally seen and examined the patient, performed the documentation and the assessment and plan as written. Number of minutes spent on the visit:20 Time with Patient: Greater than 30
[2022-10-28 07:40] LABS: Glucose,Whole Blood 378 mg/dL (70-110)
[2022-10-28 08:08] LABS: VBG PH 7.17 (7.31-7.41)
[2022-10-28 08:12] LABS: African American GFR (CKD) 82 (>60 ml/min/1.73 sqM); Anion Gap 30 mmol/L; Blood Urea Nitrogen 31 mg/dL (9-20); Chloride 111 mmol/L (98-107); Glucose 380 mg/dL (74-99); Non-African American GFR(CKD) 71 (>60 ml/min/1.73 sqM); Phosphorus 5.7 mg/dL (2.5-4.5); Potassium 5.2 mmol/L (3.5-5.1); Sodium 148 mmol/L (137-145)
[2022-10-28 08:21] LABS: Carbon Dioxide 7 mmol/L (22-30)
[2022-10-28 08:59] LABS: Glucose,Whole Blood 278 mg/dL (70-110)
[2022-10-28 10:04] LABS: Glucose,Whole Blood 206 mg/dL (70-110)
[2022-10-28] MEDS: D5-0.45% NACL WITH KCL 20MEQ/L 1,000 ML IV SCH ×3 (10:04→23:03)
[2022-10-28 10:45] LABS: Glucose,Whole Blood 204 mg/dL (70-110)
[2022-10-28 11:33] LABS: Glucose,Whole Blood 208 mg/dL (70-110)
[2022-10-28] MEDS: ONDANSETRON 4 MG/2 ML VIAL IVP PRN (12:11)
[2022-10-28 12:38] LABS: Glucose,Whole Blood 197 mg/dL (70-110)
[2022-10-28 12:52] LABS: African American GFR (CKD) >90 (>60 ml/min/1.73 sqM); Anion Gap 18 mmol/L; Blood Urea Nitrogen 28 mg/dL (9-20); Carbon Dioxide 14 mmol/L (22-30); Chloride 115 mmol/L (98-107); Glucose 203 mg/dL (74-99); Non-African American GFR(CKD) >90 (>60 ml/min/1.73 sqM); Phosphorus 2.5 mg/dL (2.5-4.5); Potassium 4.7 mmol/L (3.5-5.1); Sodium 147 mmol/L (137-145)
[2022-10-28 13:31] LABS: Glucose,Whole Blood 175 mg/dL (70-110)
[2022-10-28 14:57] LABS: Glucose,Whole Blood 188 mg/dL (70-110)
[2022-10-28 15:48] LABS: Glucose,Whole Blood 159 mg/dL (70-110)
[2022-10-28 16:35] LABS: African American GFR (CKD) >90 (>60 ml/min/1.73 sqM); Anion Gap 14 mmol/L; Blood Urea Nitrogen 26 mg/dL (9-20); Carbon Dioxide 19 mmol/L (22-30); Chloride 114 mmol/L (98-107); Glucose 164 mg/dL (74-99); Non-African American GFR(CKD) >90 (>60 ml/min/1.73 sqM); Phosphorus 2.2 mg/dL (2.5-4.5); Potassium 4.3 mmol/L (3.5-5.1); Sodium 147 mmol/L (137-145)
[2022-10-28 16:41] LABS: Glucose,Whole Blood 139 mg/dL (70-110)
[2022-10-28 18:07] LABS: Glucose,Whole Blood 133 mg/dL (70-110)
[2022-10-28 19:11] LABS: Glucose,Whole Blood 169 mg/dL (70-110)
[2022-10-28 20:03] LABS: Glucose,Whole Blood 168 mg/dL (70-110)
[2022-10-28 21:09] LABS: African American GFR (CKD) >90 (>60 ml/min/1.73 sqM); Anion Gap 12 mmol/L; Blood Urea Nitrogen 24 mg/dL (9-20); Carbon Dioxide 21 mmol/L (22-30); Chloride 113 mmol/L (98-107); Glucose 158 mg/dL (74-99); Non-African American GFR(CKD) >90 (>60 ml/min/1.73 sqM); Phosphorus 3.2 mg/dL (2.5-4.5); Potassium 4.1 mmol/L (3.5-5.1); Sodium 146 mmol/L (137-145)
[2022-10-28 21:14] LABS: Glucose,Whole Blood 148 mg/dL (70-110)
[2022-10-28 21:23] LABS: Basophils # (A) 0.1 k/uL (0-0.2); Basophils % (A) 0 %; Eosinophils # (A) 0.1 k/uL (0-0.7); Eosinophils % (A) 0 %; HCT 39.8 % (39.0-53.0); Lymphocytes # (A) 2.2 k/uL (1.0-4.8); Lymphocytes % (A) 8 %; MCH 29.7 pg (25.0-35.0); MCHC 32.7 g/dL (31.0-37.0); Mean Platelet Volume 6.8; Monocytes # (A) 1.6 k/uL (0-1.0); Monocytes % (A) 6 %; Neutrophils # (A) 23.8 k/uL (1.3-7.7); Neutrophils % (A) 85 %; Platelet Count 406 k/uL (150-450); RBC 4.37 m/uL (4.30-5.90); WBC 27.9 k/uL (3.8-10.6)
[2022-10-28 22:13] LABS: Glucose,Whole Blood 175 mg/dL (70-110)
[2022-10-28 23:13] LABS: Glucose,Whole Blood 213 mg/dL (70-110)
[2022-10-29 01:36] LABS: Glucose,Whole Blood 323 mg/dL (70-110)
[2022-10-29] MEDS: INSULIN ASPART (NovoLOG) 100 UNIT/ML VIAL SQ SCH ×4 (01:56→17:55)
[2022-10-29 03:17] LABS: Glucose,Whole Blood 315 mg/dL (70-110)
[2022-10-29] MEDS ORDERED: SODIUM CHLORIDE 0.9% 1,000 ML IV SCH ×2 (03:45→09:00)
[2022-10-29 06:05] LABS: Glucose,Whole Blood 306 mg/dL (70-110)
[2022-10-29] MEDS: ONDANSETRON 4 MG/2 ML VIAL IVP PRN ×2 (06:12→14:27)
[2022-10-29] MEDS ORDERED: INSULIN DETEMIR (LEVEMIR) 100 UNIT/ML SYR SQ SCH (07:00)
[2022-10-29 07:35] LABS: Glucose,Whole Blood 456 mg/dL (70-110)
[2022-10-29 08:25] LABS: Basophils % (A) 0 %; Eosinophils % (A) 0 %; HCT 41.8 % (39.0-53.0); HGB 13.7 gm/dL (13.0-17.5); Lymphocytes # (A) 1.4 k/uL (1.0-4.8); Lymphocytes % (A) 5 %; MCH 30.7 pg (25.0-35.0); MCHC 32.7 g/dL (31.0-37.0); Mean Platelet Volume 7.2; Monocytes # (A) 0.7 k/uL (0-1.0); Monocytes % (A) 3 %; Neutrophils % (A) 92 %; Platelet Count 392 k/uL (150-450); RBC 4.45 m/uL (4.30-5.90); RDW 14.2 % (11.5-15.5)
[2022-10-29 08:31] LABS: Glucose,Whole Blood 460 mg/dL (70-110)
[2022-10-29 08:43] LABS: WBC 28.3 k/uL (3.8-10.6)
[2022-10-29 08:51] LABS: African American GFR (CKD) >90 (>60 ml/min/1.73 sqM); Anion Gap 28 mmol/L; Blood Urea Nitrogen 19 mg/dL (9-20); Chloride 108 mmol/L (98-107); Glucose 497 mg/dL (74-99); Non-African American GFR(CKD) >90 (>60 ml/min/1.73 sqM); Potassium 4.8 mmol/L (3.5-5.1); Sodium 144 mmol/L (137-145)
[2022-10-29 08:57] LABS: Carbon Dioxide 8 mmol/L (22-30)
[2022-10-29] MEDS ORDERED: SODIUM CHLORIDE 0.9% 1,000 ML IV ONE (09:00)
[2022-10-29] MEDS ORDERED: DEXTROSE 50% SYRINGE 50 ML IVP PRN ×2 (09:02)
[2022-10-29 09:30] LABS: Glucose,Whole Blood 410 mg/dL (70-110)
[2022-10-29] MEDS: INSULIN REGULAR 100 UNIT in SODIUM CHLORIDE 0.9% 100 ML IV SCH (09:45)
[2022-10-29 10:29] LABS: Glucose,Whole Blood 277 mg/dL (70-110)
[2022-10-29] MEDS: PANTOPRAZOLE 40 MG/10 ML VIAL IVP SCH (10:36)
[2022-10-29] MEDS ORDERED: Potassium Replacement Protocol 1 EACH MISC MISCELLANE PRN (10:40)
[2022-10-29] MEDS ORDERED: Magnesium Replacement Protocol 1 EACH MISC MISCELLANE PRN (10:40)
[2022-10-29 11:11] LABS: Glucose,Whole Blood 212 mg/dL (70-110)
[2022-10-29] MEDS: D5-0.45% NACL WITH KCL 20MEQ/L 1,000 ML IV SCH (11:18)
[2022-10-29] MEDS: SODIUM CHLORIDE 0.9% 1,000 ML IV SCH ×2 (11:19→18:14)
[2022-10-29] MEDS ORDERED: GABAPENTIN 300 MG CAP PO SCH (11:30)
[2022-10-29 11:43] LABS: African American GFR (CKD) >90 (>60 ml/min/1.73 sqM); Anion Gap 24 mmol/L; Basophils % (A) 0 %; Blood Urea Nitrogen 17 mg/dL (9-20); Carbon Dioxide 12 mmol/L (22-30); Chloride 114 mmol/L (98-107); Eosinophils # (A) 0.1 k/uL (0-0.7); Eosinophils % (A) 0 %; Glucose 241 mg/dL (74-99); HCT 41.8 % (39.0-53.0); HGB 13.4 gm/dL (13.0-17.5); Hypochromasia Slight; Lymphocytes # (A) 1.3 k/uL (1.0-4.8); Lymphocytes % (A) 5 %; MCH 31.2 pg (25.0-35.0); MCHC 32.1 g/dL (31.0-37.0); MCV 97.1 fL (80.0-100.0); Mean Platelet Volume 6.9; Monocytes % (A) 4 %; Neutrophils # (A) 24.6 k/uL (1.3-7.7); Neutrophils % (A) 91 %; Non-African American GFR(CKD) >90 (>60 ml/min/1.73 sqM); Phosphorus 2.3 mg/dL (2.5-4.5); Platelet Count 377 k/uL (150-450); Potassium 3.8 mmol/L (3.5-5.1); RBC 4.31 m/uL (4.30-5.90); RDW 13.9 % (11.5-15.5); Sodium 150 mmol/L (137-145); WBC 27.2 k/uL (3.8-10.6)
[2022-10-29 12:03] LABS: Glucose,Whole Blood 179 mg/dL (70-110)
[2022-10-29 13:02] LABS: Glucose,Whole Blood 147 mg/dL (70-110)
--- NOTE | 2022-10-29 13:39 | P.PN ---
Subjective Progress Note Date: 10/29/22 Principal diagnosis: Acute diabetic ketoacidosis I am seeing this patient in new consultation today 10/28/2022 for diabetic ketoacidosis and possible hematemesis. Patient is a 27-year-old white male with past medical history significant for type 1 diabetes mellitus with very frequent readmissions to the hospital. He also has a history of anxiety and depression, nicotine dependence, diabetic neuropathy. Patient was brought in to the emergency room this morning after EMS was called for altered mental status and possible hematemesis. Patient is currently not able to provide any information, and much of this HPI is taken from the chart. He is currently laying on his chadwick e, on room air, in no acute distress. He does not answer my questions, but will occasionally open his eyes. There is brownish clear liquid, presumably emesis, on his blankets. No carly blood noted. He is in a state of diabetic ketoacidosis with serum CO2 of less than 5, anion gap unmeasurable, and blood glucose of 803. Patient was also acetone positive. He has been started on the DKA protocol. Insulin is infusing per protocol. Normal saline is infusing at 200 ML's per hour. He is hyperkalemic with a potassium of 6.6; and was given one amp of sodium bicarb, 6 units of regular insulin, and 1 g of calcium gluconate. Recheck potassium is scheduled for 8 AM. CBC on arrival shows a WBC count of 46.8, hemoglobin 13.9, hematocrit 46.3, platelets 523. He is afebrile. Heart rate is elevated around 120 bpm, rhythm is sinus tachycardia. Kussmaul's respirations noted. Patient will be monitored in the intensive care unit until his DKA resolves. Reevaluated today early this morning while the patient was still in the ER, apparently was in the ER overnight. His blood sugar is poorly controlled, patient is developing worsening diabetic ketoacidosis all over again. Yesterday the patient was transitioned to subcu insulin, however that could not control his blood sugars, and after I saw the patient this morning and I reviewed his labs, I recommended immediate transfer to the ICU, I also recommended that the patient goes back on insulin infusion, and he was given a liter of 0.9 normal saline fluid bolus, IV fluid increased to 200 mL per hour in the form of 0.9 normal saline. Continues to have elevated WBC count of 27.2 hemoglobin is 13.4. His sodium today is 150 creatinine is 0.8 bicarb is 12 and his anion gap is 24 continues to have positive ketones, and I believe the patient should be treated as per protocol for DKA again Objective - Vital Signs Vital signs: Vital Signs Temp 97.7 F 10/29/22 10:00 Pulse 124 H 10/29/22 12:00 Resp 14 10/29/22 12:00 BP 118/79 10/29/22 12:00 Pulse Ox 98 10/29/22 12:00 FiO2 Intake & Output 10/28/22 10/29/22 10/29/22 18:59 06:59 18:59 Intake Total 84.861 6.945 372.143 Balance 84.861 6.945 372.143 Weight 66.3 kg Intake: Intake, IV Titration 84.861 6.945 372.143 Amount D5-0.45% NaCl with KCl 150 20Meq/l 1,000 ml @ 150 mls/hr IV .[id number] [facility] Rx# :[id number] Insulin Regular 100 unit 84.861 6.945 In Sodium Chloride 0.9% 100 ml @ 0.1 UNITS/KG/HR 6.643 mls/hr IV .[id number] [facility] Rx#:[id number] Insulin Regular 100 unit 22.143 In Sodium Chloride 0.9% 100 ml @ 0.1 UNITS/KG/HR 6.643 mls/hr IV .[id number] [facility] Rx#:[id number] Sodium Chloride 0.9% 1, 200 000 ml @ 200 mls/hr IV . Q5H [facility] Rx#:[id number] - Exam Physical Exam: Revealed a 27-year-old male in no distress Head: Atraumatic normocephalic. HEENT:[Neck is supple.] [No neck masses.] [No thyromegaly.] [No JVD.] Chest: [Clear throughout, no crackles, no rhonchi, no wheezes.] Cardiac Exam: [Normal S1 and S2, no S3 gallop, no murmur.] Abdomen: [Soft, nontender, no megaly, no rebound, no guarding, normal bowel sounds.] Extremities: [No clubbing, no edema, no cyanosis.] Neurological Exam: [No focal neurologic deficit.] Acute: Depressed mood, flat affect, normal mental status. - Labs CBC & Chem 7: 10/29/22 11:06 10/29/22 11:06 Labs: Abnormal Lab Results - Last 24 Hours (Table) 10/28/22 10/28/22 10/28/22 Range/Units 14:56 15:44 16:05 WBC (3.8-10.6) k/uL Neutrophils # (1.3-7.7) k/uL Monocytes # (0-1.0) k/uL Sodium 147 H (137-145) mmol/L Chloride 114 H (98-107) mmol/L Carbon Dioxide 19 L (22-30) mmol/L BUN 26 H (9-20) mg/dL Glucose 164 H (74-99) mg/dL POC Glucose (mg/dL) 188 H 159 H (70-110) mg/dL Phosphorus 2.2 L (2.5-4.5) mg/dL 10/28/22 10/28/22 10/28/22 Range/Units 16:39 18:05 19:09 WBC (3.8-10.6) k/uL Neutrophils # (1.3-7.7) k/uL Monocytes # (0-1.0) k/uL Sodium (137-145) mmol/L Chloride (98-107) mmol/L Carbon Dioxide (22-30) mmol/L BUN (9-20) mg/dL Glucose (74-99) mg/dL POC Glucose (mg/dL) 139 H 133 H 169 H (70-110) mg/dL Phosphorus (2.5-4.5) mg/dL 10/28/22 10/28/22 10/28/22 Range/Units 20:02 20:18 20:18 WBC 27.9 H (3.8-10.6) k/uL Neutrophils # 23.8 H (1.3-7.7) k/uL Monocytes # 1.6 H (0-1.0) k/uL Sodium 146 H (137-145) mmol/L Chloride 113 H (98-107) mmol/L Carbon Dioxide 21 L (22-30) mmol/L BUN 24 H (9-20) mg/dL Glucose 158 H (74-99) mg/dL POC Glucose (mg/dL) 168 H (70-110) mg/dL Phosphorus (2.5-4.5) mg/dL 10/28/22 10/28/22 10/28/22 Range/Units 21:12 22:11 23:01 WBC (3.8-10.6) k/uL Neutrophils # (1.3-7.7) k/uL Monocytes # (0-1.0) k/uL Sodium (137-145) mmol/L Chloride (98-107) mmol/L Carbon Dioxide (22-30) mmol/L BUN (9-20) mg/dL Glucose (74-99) mg/dL POC Glucose (mg/dL) 148 H 175 H 213 H (70-110) mg/dL Phosphorus (2.5-4.5) mg/dL 10/29/22 10/29/22 10/29/22 Range/Units 01:33 03:15 06:04 WBC (3.8-10.6) k/uL Neutrophils # (1.3-7.7) k/uL Monocytes # (0-1.0) k/uL Sodium (137-145) mmol/L Chloride (98-107) mmol/L Carbon Dioxide (22-30) mmol/L BUN (9-20) mg/dL Glucose (74-99) mg/dL POC Glucose (mg/dL) 323 H 315 H 306 H (70-110) mg/dL Phosphorus (2.5-4.5) mg/dL 10/29/22 10/29/22 10/29/22 Range/Units 07:33 08:12 08:12 WBC 28.3 H (3.8-10.6) k/uL Neutrophils # 26.0 H (1.3-7.7) k/uL Monocytes # (0-1.0) k/uL Sodium (137-145) mmol/L Chloride 108 H (98-107) mmol/L Carbon Dioxide 8 L* (22-30) mmol/L BUN (9-20) mg/dL Glucose 497 H (74-99) mg/dL POC Glucose (mg/dL) 456 H (70-110) mg/dL Phosphorus (2.5-4.5) mg/dL 10/29/22 10/29/22 10/29/22 Range/Units 08:29 09:28 10:27 WBC (3.8-10.6) k/uL Neutrophils # (1.3-7.7) k/uL Monocytes # (0-1.0) k/uL Sodium (137-145) mmol/L Chloride (98-107) mmol/L Carbon Dioxide (22-30) mmol/L BUN (9-20) mg/dL Glucose (74-99) mg/dL POC Glucose (mg/dL) 460 H 410 H 277 H (70-110) mg/dL Phosphorus (2.5-4.5) mg/dL 10/29/22 10/29/22 10/29/22 Range/Units 11:06 11:06 11:09 WBC 27.2 H (3.8-10.6) k/uL Neutrophils # 24.6 H (1.3-7.7) k/uL Monocytes # (0-1.0) k/uL Sodium 150 H (137-145) mmol/L Chloride 114 H (98-107) mmol/L Carbon Dioxide 12 L (22-30) mmol/L BUN (9-20) mg/dL Glucose 241 H (74-99) mg/dL POC Glucose (mg/dL) 212 H (70-110) mg/dL Phosphorus 2.3 L (2.5-4.5) mg/dL 10/29/22 10/29/22 Range/Units 12:01 13:01 WBC (3.8-10.6) k/uL Neutrophils # (1.3-7.7) k/uL Monocytes # (0-1.0) k/uL Sodium (137-145) mmol/L Chloride (98-107) mmol/L Carbon Dioxide (22-30) mmol/L BUN (9-20) mg/dL Glucose (74-99) mg/dL POC Glucose (mg/dL) 179 H 147 H (70-110) mg/dL Phosphorus (2.5-4.5) mg/dL Assessment and Plan Assessment: Impression: Acute diabetic ketoacidosis, secondary to medical noncompliance. Anion gap metabolic acidosis, secondary to DKA. Acute kidney injury, secondary to above hyperkalemia, treated with regular insulin 6 units bolus, one amp sodium bicarbonate, and one gram calcium gluconate. Questionable hematemesis, surgery was consulted. leukocytosis. T ype 1 diabetes mellitus, poor compliance Diabetic neuropathy History of ongoing tobacco use/vaping History of previous drug overdose and suicide attempt History of major depression and generalized anxiety History of chronic marijuana use Recommendation: Transferred to ICU from the ER Restart DKA protocol Restart insulin drip Increase IV fluids Surgery to see for hematemesis Continue Zofran for nausea and vomiting We'll continue to follow.
[2022-10-29 14:05] LABS: Glucose,Whole Blood 126 mg/dL (70-110)
--- NOTE | 2022-10-29 14:47 | P.GSCN ---
History of Present Illness Consult date: 10/29/22 History of present illness: CHIEF COMPLAINT: Altered mental status with nausea and vomiting Reason for consult: Hematemesis, possible GI bleed HISTORY OF PRESENT ILLNESS: This is a 27-year-old male with a known history of type 1 diabetes and history of DKA requiring recurrent admissions. Patient presented to the emergency room via EMS due to altered mental status and possible hematemesis. Most of history is obtained from chart. Apparently patient was found by EMS and had evidence of coffee ground and bloody emesis. Patient was seen in ER. The bucket at bedside had a brownish emesis present. Patient is able to report no abdominal pain. Reports no history of GI bleed. And reports having bowel movements with no blood or melena. Patient's gastric occult blood was positive. Hemoglobin is 13. He is admitted to the hospital with evidence of DKA and admitted to the ICU. No history of EGD or colonoscopy. PAST MEDICAL HISTORY: See below PAST SURGICAL HISTORY: See below MEDICATIONS: See below ALLERGIES: See below SOCIAL HISTORY: No illicit drug use. REVIEW OF SYSTEMS: CONSTITUTIONAL: Denies fever or chills. HEENT: Denies blurred vision, vision changes, or eye pain. Denies hemoptysis CARDIOVASCULAR: Denies chest pain or pressure. RESPIRATORY: No shortness of breath. GASTROINTESTINAL: See HPI for pertinent findings HEMATOLOGIC: Denies bleeding disorders. GENITOURINARY: Denies any blood in urine or increased urinary frequency. SKIN: Denies pruitis. Denies rash. PHYSICAL EXAM: VITAL SIGNS: Reviewed GENERAL: Well-developed in no acute distress. HEENT: No sclera icterus. Extraocular movements grossly intact. Moist buccal mucosa. Head is atraumatic, normocephalic. No nasal drainage. ABDOMEN: Soft. Nondistended. Nontender NEUROLOGIC: Alert and oriented. Cranial nerves II through XII grossly intact. LABORATORY DATA: WBC 46-27.2 hgb 13.4 plt 377 na 150 potassium 3.8 creatinine 0.81 Phosphorus 2.3 Gastric occult blood positive Acetone positive IMAGING: ASSESSMENT: 1. Possible GI bleed with hematemesis and coffee-ground emesis 2. DKA PLAN: -Plan for EGD when patient is medically stable. Patient tentatively scheduled for EGD on with Dr. osorio -Continue ICU management -Continue supportive care -Continue IV Protonix -Continue to monitor hemoglobin -Continue treatment of DKA per critical care service Thank you for this consultation Physician Skating Carhop note has been reviewed by physician. Signing provider agrees with the documented findings, assessment, and plan of care. Past Medical History Past Medical History: Asthma, Diabetes Mellitus, Neurologic Disorder, Skin Disorder Additional Past Medical History / Comment(s): IDDM type I, neuropathy bilateral feet, DKA, eczema. History of Any Multi-Drug Resistant Organisms: None Reported Past Surgical History: Adenoidectomy Additional Past Surgical History / Comment(s): 2002 Past Anesthesia/Blood Transfusion Reactions: No Reported Reaction Past Psychological History: Anxiety, Depression Smoking Status: Current every day smoker, Vaper Past Alcohol Use History: None Reported Past Drug Use History: None Reported - Past Family History Mother Family Medical History: CVA/TIA Additional Family Medical History / Comment(s): TIA Father Family Medical History: Hyperlipidemia, Hypertension Additional Family Medical History / Comment(s): . Medications and Allergies Home Medications Medication Instructions Recorded Confirmed Type Insulin Detemir (Levemir) [Levemir] 28 unit SQ DAILY@0700 30 Days #1 10/03/22 10/28/22 Rx each Gabapentin 600 mg PO DIRECTED 10/14/22 10/28/22 History INSULIN ASPART (NovoLOG) [NovoLOG 6 - 10 unit SQ AC-TID 10/14/22 10/28/22 History (formulary)] Laona Carbonate 150 mg PO DIRECTED 10/14/22 10/28/22 History Losartan [Cozaar] 50 mg PO DIRECTED 10/14/22 10/28/22 History buPROPion XL [Wellbutrin XL] 300 mg PO DIRECTED 10/14/22 10/28/22 History Mirtazapine [Remeron] 15 mg PO DIRECTED 10/28/22 10/28/22 History Allergies Allergy/AdvReac Type Severity Reaction Status Date / Time No Known Allergies Allergy Verified 10/28/22 07:08 Surgical - Exam Vital Signs Temp Resp Pulse Ox 98.7 F 18 98 10/28/22 04:07 10/28/22 04:07 10/28/22 04:07 Results - Labs 10/29/22 11:06 10/29/22 11:06 Abnormal Lab Results - Last 24 Hours (Table) 10/28/22 10/28/22 10/28/22 Range/Units 10:35 11:30 12:05 WBC (3.8-10.6) k/uL Neutrophils # (1.3-7.7) k/uL Monocytes # (0-1.0) k/uL Sodium 147 H (137-145) mmol/L Chloride 115 H (98-107) mmol/L Carbon Dioxide 14 L (22-30) mmol/L BUN 28 H (9-20) mg/dL Glucose 203 H (74-99) mg/dL POC Glucose (mg/dL) 204 H 208 H (70-110) mg/dL Phosphorus (2.5-4.5) mg/dL 10/28/22 10/28/22 10/28/22 Range/Units 12:36 13:30 14:56 WBC (3.8-10.6) k/uL Neutrophils # (1.3-7.7) k/uL Monocytes # (0-1.0) k/uL Sodium (137-145) mmol/L Chloride (98-107) mmol/L Carbon Dioxide (22-30) mmol/L BUN (9-20) mg/dL Glucose (74-99) mg/dL POC Glucose (mg/dL) 197 H 175 H 188 H (70-110) mg/dL Phosphorus (2.5-4.5) mg/dL 10/28/22 10/28/22 10/28/22 Range/Units 15:44 16:05 16:39 WBC (3.8-10.6) k/uL Neutrophils # (1.3-7.7) k/uL Monocytes # (0-1.0) k/uL Sodium 147 H (137-145) mmol/L Chloride 114 H (98-107) mmol/L Carbon Dioxide 19 L (22-30) mmol/L BUN 26 H (9-20) mg/dL Glucose 164 H (74-99) mg/dL POC Glucose (mg/dL) 159 H 139 H (70-110) mg/dL Phosphorus 2.2 L (2.5-4.5) mg/dL 10/28/22 10/28/22 10/28/22 Range/Units 18:05 19:09 20:02 WBC (3.8-10.6) k/uL Neutrophils # (1.3-7.7) k/uL Monocytes # (0-1.0) k/uL Sodium (137-145) mmol/L Chloride (98-107) mmol/L Carbon Dioxide (22-30) mmol/L BUN (9-20) mg/dL Glucose (74-99) mg/dL POC Glucose (mg/dL) 133 H 169 H 168 H (70-110) mg/dL Phosphorus (2.5-4.5) mg/dL 10/28/22 10/28/22 10/28/22 Range/Units 20:18 20:18 21:12 WBC 27.9 H (3.8-10.6) k/uL Neutrophils # 23.8 H (1.3-7.7) k/uL Monocytes # 1.6 H (0-1.0) k/uL Sodium 146 H (137-145) mmol/L Chloride 113 H (98-107) mmol/L Carbon Dioxide 21 L (22-30) mmol/L BUN 24 H (9-20) mg/dL Glucose 158 H (74-99) mg/dL POC Glucose (mg/dL) 148 H (70-110) mg/dL Phosphorus (2.5-4.5) mg/dL 10/28/22 10/28/22 10/29/22 Range/Units 22:11 23:01 01:33 WBC (3.8-10.6) k/uL Neutrophils # (1.3-7.7) k/uL Monocytes # (0-1.0) k/uL Sodium (137-145) mmol/L Chloride (98-107) mmol/L Carbon Dioxide (22-30) mmol/L BUN (9-20) mg/dL Glucose (74-99) mg/dL POC Glucose (mg/dL) 175 H 213 H 323 H (70-110) mg/dL Phosphorus (2.5-4.5) mg/dL 10/29/22 10/29/22 10/29/22 Range/Units 03:15 06:04 07:33 WBC (3.8-10.6) k/uL Neutrophils # (1.3-7.7) k/uL Monocytes # (0-1.0) k/uL Sodium (137-145) mmol/L Chloride (98-107) mmol/L Carbon Dioxide (22-30) mmol/L BUN (9-20) mg/dL Glucose (74-99) mg/dL POC Glucose (mg/dL) 315 H 306 H 456 H (70-110) mg/dL Phosphorus (2.5-4.5) mg/dL 10/29/22 10/29/22 10/29/22 Range/Units 08:12 08:12 08:29 WBC 28.3 H (3.8-10.6) k/uL Neutrophils # 26.0 H (1.3-7.7) k/uL Monocytes # (0-1.0) k/uL Sodium (137-145) mmol/L Chloride 108 H (98-107) mmol/L Carbon Dioxide 8 L* (22-30) mmol/L BUN (9-20) mg/dL Glucose 497 H (74-99) mg/dL POC Glucose (mg/dL) 460 H (70-110) mg/dL Phosphorus (2.5-4.5) mg/dL 10/29/22 Range/Units 09:28 WBC (3.8-10.6) k/uL Neutrophils # (1.3-7.7) k/uL Monocytes # (0-1.0) k/uL Sodium (137-145) mmol/L Chloride (98-107) mmol/L Carbon Dioxide (22-30) mmol/L BUN (9-20) mg/dL Glucose (74-99) mg/dL POC Glucose (mg/dL) 410 H (70-110) mg/dL Phosphorus (2.5-4.5) mg/dL Diabetes panel 10/28/22 10/28/22 10/28/22 Range/Units 12:05 16:05 20:18 Sodium 147 H 147 H 146 H (137-145) mmol/L Potassium 4.7 4.3 4.1 (3.5-5.1) mmol/L Chloride 115 H 114 H 113 H (98-107) mmol/L Carbon Dioxide 14 L 19 L 21 L (22-30) mmol/L BUN 28 H 26 H 24 H (9-20) mg/dL Creatinine 0.97 0.77 0.73 (0.66-1.25) mg/dL Glucose 203 H 164 H 158 H (74-99) mg/dL Calcium (8.4-10.2) mg/dL 10/29/22 Range/Units 08:12 Sodium 144 (137-145) mmol/L Potassium 4.8 (3.5-5.1) mmol/L Chloride 108 H (98-107) mmol/L Carbon Dioxide 8 L* (22-30) mmol/L BUN 19 (9-20) mg/dL Creatinine 0.86 (0.66-1.25) mg/dL Glucose 497 H (74-99) mg/dL Calcium 9.0 (8.4-10.2) mg/dL Calcium panel 10/28/22 10/28/22 10/28/22 Range/Units 12:05 16:05 20:18 Calcium (8.4-10.2) mg/dL Phosphorus 2.5 2.2 L 3.2 (2.5-4.5) mg/dL 10/29/22 Range/Units 08:12 Calcium 9.0 (8.4-10.2) mg/dL Phosphorus (2.5-4.5) mg/dL Pituitary panel 10/28/22 10/28/22 10/28/22 Range/Units 12:05 16:05 20:18 Sodium 147 H 147 H 146 H (137-145) mmol/L Potassium 4.7 4.3 4.1 (3.5-5.1) mmol/L Chloride 115 H 114 H 113 H (98-107) mmol/L Carbon Dioxide 14 L 19 L 21 L (22-30) mmol/L BUN 28 H 26 H 24 H (9-20) mg/dL Creatinine 0.97 0.77 0.73 (0.66-1.25) mg/dL Glucose 203 H 164 H 158 H (74-99) mg/dL Calcium (8.4-10.2) mg/dL 10/29/22 Range/Units 08:12 Sodium 144 (137-145) mmol/L Potassium 4.8 (3.5-5.1) mmol/L Chloride 108 H (98-107) mmol/L Carbon Dioxide 8 L* (22-30) mmol/L BUN 19 (9-20) mg/dL Creatinine 0.86 (0.66-1.25) mg/dL Glucose 497 H (74-99) mg/dL Calcium 9.0 (8.4-10.2) mg/dL Adrenal panel 10/28/22 10/28/22 10/28/22 Range/Units 12:05 16:05 20:18 Sodium 147 H 147 H 146 H (137-145) mmol/L Potassium 4.7 4.3 4.1 (3.5-5.1) mmol/L Chloride 115 H 114 H 113 H (98-107) mmol/L Carbon Dioxide 14 L 19 L 21 L (22-30) mmol/L BUN 28 H 26 H 24 H (9-20) mg/dL Creatinine 0.97 0.77 0.73 (0.66-1.25) mg/dL Glucose 203 H 164 H 158 H (74-99) mg/dL Calcium (8.4-10.2) mg/dL 10/29/22 Range/Units 08:12 Sodium 144 (137-145) mmol/L Potassium 4.8 (3.5-5.1) mmol/L Chloride 108 H (98-107) mmol/L Carbon Dioxide 8 L* (22-30) mmol/L BUN 19 (9-20) mg/dL Creatinine 0.86 (0.66-1.25) mg/dL Glucose 497 H (74-99) mg/dL Calcium 9.0 (8.4-10.2) mg/dL
[2022-10-29 15:37] LABS: Glucose,Whole Blood 118 mg/dL (70-110)
[2022-10-29 15:54] VITALS: BMI 18.7
[2022-10-29 16:19] LABS: African American GFR (CKD) >90 (>60 ml/min/1.73 sqM); Amylase 57 U/L (30-110); Anion Gap 10 mmol/L; Blood Urea Nitrogen 16 mg/dL (9-20); Carbon Dioxide 21 mmol/L (22-30); Chloride 115 mmol/L (98-107); Glucose 114 mg/dL (74-99); Lipase 104 U/L (23-300); Non-African American GFR(CKD) >90 (>60 ml/min/1.73 sqM); Phosphorus 2.3 mg/dL (2.5-4.5); Sodium 146 mmol/L (137-145)
[2022-10-29 16:25] LABS: Glucose,Whole Blood 100 mg/dL (70-110)
[2022-10-29 17:07] LABS: Glucose,Whole Blood 99 mg/dL (70-110)
[2022-10-29 17:40] LABS: Glucose,Whole Blood 97 mg/dL (70-110)
[2022-10-29 18:23] LABS: Glucose,Whole Blood 85 mg/dL (70-110)
[2022-10-29 19:04] LABS: Glucose,Whole Blood 83 mg/dL (70-110)
[2022-10-29 20:15] LABS: Glucose,Whole Blood 75 mg/dL (70-110)
[2022-10-29 21:11] LABS: Glucose,Whole Blood 96 mg/dL (70-110)
[2022-10-29 22:08] LABS: Glucose,Whole Blood 115 mg/dL (70-110)
--- NOTE | 2022-10-29 22:40 | HP ---
HISTORY AND PHYSICAL CHIEF COMPLAINT: Diabetic ketoacidosis and coffee-grounds emesis. HISTORY OF PRESENT ILLNESS: This is another admission for this 27-year-old white male. He has been in and out of the hospital at least weekly over the last year or 2. He was just discharged about a week ago and was staying with his mom, where he thought he may obtain more stability. However, he came in by ambulance, lethargic and ketoacidosis and throwing up coffee- ground emesis. There was concern for an upper GI bleed. Because of lethargy, no other history was available. Laboratory yancey, he had a white count of 26,000. His blood sugar was as high as 850. He presents this way regularly. He was just seen by Psychiatry when he was in last. REVIEW OF SYSTEMS: Unobtainable. Past medical history, family history, and personal and social histories are not obtainable at this time. PHYSICAL EXAMINATION: VITAL SIGNS: Blood pressure is 123/64 with a pulse of 110 and respirations of 38. GENERAL: He appeared to be very lethargic, dehydrated and unable to answer questions. HEAD, EARS, EYES, NOSE, MOUTH AND THROAT: Unchanged. Mucous membranes are dry. CHEST: Clear. CARDIAC: Normal. ABDOMEN: Soft and he was not tender. There are no masses or visceromegaly. EXTREMITIES: Demonstrated poor muscle bulk. NEUROLOGIC: He is lethargic. He is admitted to the hospital with diagnoses: 1. Diabetic ketoacidosis. 2. Possible upper gastrointestinal bleed. 3. Major depression. 4. Dehydration. 5. Malnutrition. PLAN: 1. Bed rest. 2. IV fluids. 3. Intensive care management. 4. Psych consult. MMODL / IJN: [id number] /
[2022-10-29 23:09] LABS: Glucose,Whole Blood 141 mg/dL (70-110)
[2022-10-30 00:13] LABS: Glucose,Whole Blood 130 mg/dL (70-110)
[2022-10-30 00:37] LABS: African American GFR (CKD) >90 (>60 ml/min/1.73 sqM); Anion Gap 11 mmol/L; Blood Urea Nitrogen 14 mg/dL (9-20); Carbon Dioxide 21 mmol/L (22-30); Chloride 108 mmol/L (98-107); Glucose 132 mg/dL (74-99); Non-African American GFR(CKD) >90 (>60 ml/min/1.73 sqM); Phosphorus 2.8 mg/dL (2.5-4.5); Potassium 3.8 mmol/L (3.5-5.1); Sodium 140 mmol/L (137-145)
--- NOTE | 2022-10-30 00:40 | PN ---
PROGRESS NOTE CHIEF COMPLAINT: Possible upper GI bleed and DKA. HISTORY OF PRESENT ILLNESS: This gentleman remains in the emergency room. He is very lethargic. Vital signs are normal. REVIEW OF SYSTEMS: He is lethargic and not responding appropriately at this time. PHYSICAL EXAMINATION: CHEST: Clear. CARDIAC: Demonstrates sinus tachycardia. ABDOMEN: Soft, and nontender. IMPRESSION: 1. Diabetic ketoacidosis. 2. Depression. 3. Possible hematemesis. PLAN: Move to ICU once bed is prepared. MMODL / IJN: [id number] /
[2022-10-30] MEDS: D5-0.45% NACL WITH KCL 20MEQ/L 1,000 ML IV SCH ×2 (00:46→00:47)
[2022-10-30] MEDS: SODIUM CHLORIDE 0.9% 1,000 ML IV SCH ×3 (01:05→02:56)
[2022-10-30] MEDS: POTASSIUM CHLORIDE 10 MEQ in WATER FOR INJECTION 1 100ML.BAG IVPB SCH ×4 (01:08→13:49)
[2022-10-30 04:25] LABS: Glucose,Whole Blood 161 mg/dL (70-110)
[2022-10-30 06:05] LABS: HCT 35.2 % (39.0-53.0); HGB 11.7 gm/dL (13.0-17.5); MCH 31.1 pg (25.0-35.0); MCHC 33.1 g/dL (31.0-37.0); MCV 93.9 fL (80.0-100.0); Mean Platelet Volume 6.9; Platelet Count 298 k/uL (150-450); RBC 3.75 m/uL (4.30-5.90); RDW 13.7 % (11.5-15.5); WBC 16.5 k/uL (3.8-10.6)
[2022-10-30 06:29] LABS: African American GFR (CKD) >90 (>60 ml/min/1.73 sqM); Anion Gap 6 mmol/L; Blood Urea Nitrogen 14 mg/dL (9-20); Carbon Dioxide 23 mmol/L (22-30); Chloride 108 mmol/L (98-107); Glucose 168 mg/dL (74-99); Non-African American GFR(CKD) >90 (>60 ml/min/1.73 sqM); Potassium 3.9 mmol/L (3.5-5.1); Sodium 137 mmol/L (137-145)
[2022-10-30 06:37] LABS: Glucose,Whole Blood 195 mg/dL (70-110)
[2022-10-30] MEDS: INSULIN DETEMIR (LEVEMIR) 100 UNIT/ML SYR SQ SCH (06:46)
[2022-10-30] MEDS: INSULIN ASPART (NovoLOG) 100 UNIT/ML VIAL SQ SCH ×4 (07:10→20:44)
[2022-10-30] MEDS ORDERED: POTASSIUM CHLORIDE ER 20 MEQ TAB.ER PO SCH (07:30)
[2022-10-30] MEDS: INSULIN REGULAR 100 UNIT in SODIUM CHLORIDE 0.9% 100 ML IV SCH (07:41)
[2022-10-30] MEDS: PANTOPRAZOLE 40 MG/10 ML VIAL IVP SCH (09:56)
[2022-10-30 10:54] LABS: Glucose,Whole Blood 138 mg/dL (70-110)
[2022-10-30] MEDS ORDERED: GABAPENTIN 300 MG CAP PO SCH (11:15)
[2022-10-30] MEDS: LITHIUM CARBONATE 150 MG CAP PO SCH ×2 (13:51→20:44)
[2022-10-30] MEDS: buPROPion XL 300 MG TAB.ER.24H PO SCH (13:51)
--- NOTE | 2022-10-30 13:52 | P.CN ---
Psychiatric Consult - . Consult date: 10/30/22 Consult:: 10/30/22 13:38 Psychiatry was consulted for depression and being unable to care for self. Patient has multiple admissions in the past for dka and non comnpliance. patient is well known to both medical provider and psychiatry. patients depression and non compliance are very chronic issues and psychiatry has attempted several times to coordinate care for him and get him connected with [facility]/follow up and with housing however patient refuses time and time again. Patient Companion spoke with pts nurse over the phone and explained the situation. she claims that patient has not been endorsing any suicidal thoughts or plans to harm anyone. no acute mental health issues present and at this time engineering writer will await primary provider to contact him directly with any acute mental health concerns from patient. Thank you
--- NOTE | 2022-10-30 14:27 | P.PN ---
Subjective Progress Note Date: 10/30/22 Principal diagnosis: Acute diabetic ketoacidosis I am seeing this patient in new consultation today 10/28/2022 for diabetic ketoacidosis and possible hematemesis. Patient is a 27-year-old white male with past medical history significant for type 1 diabetes mellitus with very frequent readmissions to the hospital. He also has a history of anxiety and depression, nicotine dependence, diabetic neuropathy. Patient was brought in to the emergency room this morning after EMS was called for altered mental status and possible hematemesis. Patient is currently not able to provide any information, and much of this HPI is taken from the chart. He is currently laying on his chadwick e, on room air, in no acute distress. He does not answer my questions, but will occasionally open his eyes. There is brownish clear liquid, presumably emesis, on his blankets. No carly blood noted. He is in a state of diabetic ketoacidosis with serum CO2 of less than 5, anion gap unmeasurable, and blood glucose of 803. Patient was also acetone positive. He has been started on the DKA protocol. Insulin is infusing per protocol. Normal saline is infusing at 200 ML's per hour. He is hyperkalemic with a potassium of 6.6; and was given one amp of sodium bicarb, 6 units of regular insulin, and 1 g of calcium gluconate. Recheck potassium is scheduled for 8 AM. CBC on arrival shows a WBC count of 46.8, hemoglobin 13.9, hematocrit 46.3, platelets 523. He is afebrile. Heart rate is elevated around 120 bpm, rhythm is sinus tachycardia. Kussmaul's respirations noted. Patient will be monitored in the intensive care unit until his DKA resolves. Reevaluated today early this morning while the patient was still in the ER, apparently was in the ER overnight. His blood sugar is poorly controlled, patient is developing worsening diabetic ketoacidosis all over again. Yesterday the patient was transitioned to subcu insulin, however that could not control his blood sugars, and after I saw the patient this morning and I reviewed his labs, I recommended immediate transfer to the ICU, I also recommended that the patient goes back on insulin infusion, and he was given a liter of 0.9 normal saline fluid bolus, IV fluid increased to 200 mL per hour in the form of 0.9 normal saline. Continues to have elevated WBC count of 27.2 hemoglobin is 13.4. His sodium today is 150 creatinine is 0.8 bicarb is 12 and his anion gap is 24 continues to have positive ketones, and I believe the patient should be treated as per protocol for DKA again Reevaluated today on 10/30/2022, remains in the ICU, patient is not very cooperative, he is nonverbal, however he does not seem to be in any distress. Labs have significantly improved, anion gap has resolved, his leukocytosis is improved every scattered down to 16.5 hemoglobin is 11.7. Patient seems to be very comfortable. He is off insulin drip, he is now on Levemir insulin and sliding scale insulin. Not in any distress hence I am planning to transfer the patient out of the ICU to regular medical floor. Seen by psychiatry on consultation, but no specific recommendation, according to the note the patient has been refusing getting connected for appropriate and coordination of care. Objective - Vital Signs Vital signs: Vital Signs Temp 98.7 F 10/30/22 08:00 Pulse 99 10/30/22 11:00 Resp 11 L 10/30/22 11:00 BP 106/69 10/30/22 11:00 Pulse Ox 98 10/30/22 11:00 FiO2 Intake & Output 10/29/22 10/30/22 10/30/22 18:59 06:59 18:59 Intake Total 6703.180 3829 750 Output Total 700 600 0 Balance 429.903 730 750 Weight 66.3 kg Intake: IV 200 Potassium Chloride 10 meq 100 In Water For Injection 1 100ml.bag @ 100 mls/hr IVPB Q1H [facility] Rx#: [id number] Sodium Chloride 0.9% 1, 100 000 ml @ 50 mls/hr IV . Q20H [facility]AEL Rx#:[id number] Intake, IV Titration 1129.903 850 100 Amount D5-0.45% NaCl with KCl 900 300 20Meq/l 1,000 ml @ 150 mls/hr IV .Q6H40M [facility]AEL Rx# :[id number] Insulin Regular 100 unit 29.903 In Sodium Chloride 0.9% 100 ml @ 0.1 UNITS/KG/HR 6.643 mls/hr IV .[id number] YAEL Rx#:[id number] Potassium Chloride 10 meq 200 In Water For Injection 1 100ml.bag @ 100 mls/hr IVPB Q1H YAEL Rx#: [id number] Sodium Chloride 0.9% 1, 200 000 ml @ 200 mls/hr IV . Q5H [facility]AEL Rx#:[id number] Sodium Chloride 0.9% 1, 350 100 000 ml @ 50 mls/hr IV . Q20H [facility] Rx#:[id number] Oral 480 450 Output: Urine 700 600 0 - Exam Physical Exam: Revealed a 27-year-old male in no distress Head: Atraumatic normocephalic. HEENT:[Neck is supple.] [No neck masses.] [No thyromegaly.] [No JVD.] Chest: [Clear throughout, no crackles, no rhonchi, no wheezes.] Cardiac Exam: [Normal S1 and S2, no S3 gallop, no murmur.] Abdomen: [Soft, nontender, no megaly, no rebound, no guarding, normal bowel sounds.] Extremities: [No clubbing, no edema, no cyanosis.] Neurological Exam: [No focal neurologic deficit.] Acute: Depressed mood, flat affect, normal mental status. - Labs CBC & Chem 7: 10/30/22 05:27 10/30/22 05:27 Labs: Abnormal Lab Results - Last 24 Hours (Table) 10/29/22 10/29/22 10/29/22 Range/Units 08:12 15:35 15:46 WBC (3.8-10.6) k/uL RBC (4.30-5.90) m/uL Hgb (13.0-17.5) gm/dL Hct (39.0-53.0) % Sodium 146 H (137-145) mmol/L Chloride 115 H (98-107) mmol/L Carbon Dioxide 21 L (22-30) mmol/L Creatinine 0.65 L (0.66-1.25) mg/dL Glucose 114 H (74-99) mg/dL POC Glucose (mg/dL) 118 H (70-110) mg/dL Hemoglobin A1c 10.0 H % Calcium (8.4-10.2) mg/dL Phosphorus 2.3 L (2.5-4.5) mg/dL 10/29/22 10/29/22 10/29/22 Range/Units 22:07 23:07 23:45 WBC (3.8-10.6) k/uL RBC (4.30-5.90) m/uL Hgb (13.0-17.5) gm/dL Hct (39.0-53.0) % Sodium (137-145) mmol/L Chloride 108 H (98-107) mmol/L Carbon Dioxide 21 L (22-30) mmol/L Creatinine (0.66-1.25) mg/dL Glucose 132 H (74-99) mg/dL POC Glucose (mg/dL) 115 H 141 H (70-110) mg/dL Hemoglobin A1c % Calcium (8.4-10.2) mg/dL Phosphorus (2.5-4.5) mg/dL 10/30/22 10/30/22 10/30/22 Range/Units 00:12 04:23 05:27 WBC 16.5 H (3.8-10.6) k/uL RBC 3.75 L (4.30-5.90) m/uL Hgb 11.7 L (13.0-17.5) gm/dL Hct 35.2 L (39.0-53.0) % Sodium (137-145) mmol/L Chloride (98-107) mmol/L Carbon Dioxide (22-30) mmol/L Creatinine (0.66-1.25) mg/dL Glucose (74-99) mg/dL POC Glucose (mg/dL) 130 H 161 H (70-110) mg/dL Hemoglobin A1c % Calcium (8.4-10.2) mg/dL Phosphorus (2.5-4.5) mg/dL 10/30/22 10/30/22 10/30/22 Range/Units 05:27 06:36 10:52 WBC (3.8-10.6) k/uL RBC (4.30-5.90) m/uL Hgb (13.0-17.5) gm/dL Hct (39.0-53.0) % Sodium (137-145) mmol/L Chloride 108 H (98-107) mmol/L Carbon Dioxide (22-30) mmol/L Creatinine (0.66-1.25) mg/dL Glucose 168 H (74-99) mg/dL POC Glucose (mg/dL) 195 H 138 H (70-110) mg/dL Hemoglobin A1c % Calcium 8.0 L (8.4-10.2) mg/dL Phosphorus (2.5-4.5) mg/dL Assessment and Plan Assessment: Impression: Acute diabetic ketoacidosis, secondary to medical noncompliance. Anion gap metabolic acidosis, secondary to DKA. Acute kidney injury, secondary to above hyperkalemia, treated with regular insulin 6 units bolus, one amp sodium bicarbonate, and one gram calcium gluconate. Questionable hematemesis, surgery was consulted. leukocytosis. T ype 1 diabetes mellitus, poor compliance Diabetic neuropathy History of ongoing tobacco use/vaping History of previous drug overdose and suicide attempt History of major depression and generalized anxiety History of chronic marijuana use Recommendation: Continue present supportive care measures Transfer patient out of the ICU to regular medical floor Primary care physician/hospitalist to continue to follow Will follow as needed. Long-term prognosis remains very poor and guarded and the patient will continue to have recurrent admissions no murmur what as long as he seems to be non- interested in appropriate outpatient medical care We'll continue to follow. Time with Patient: Less than 30
[2022-10-30 14:34] LABS: Glucose,Whole Blood 124 mg/dL (70-110)
[2022-10-30] MEDS: LOSARTAN 50 MG TAB PO SCH (16:43)
[2022-10-30 16:45] LABS: Glucose,Whole Blood 120 mg/dL (70-110)
--- NOTE | 2022-10-30 16:45 | P.PN ---
Subjective Progress Note Date: 10/30/22 CHIEF COMPLAINT: DKA HISTORY OF PRESENT ILLNESS: Patient remains in the ICU for DKA. Surgical service on consult for GI bleed and possible hematemesis. Patient has had no further nausea or vomiting. He is tolerating clear liquid diet. White count is trending down. He is off insulin drip. Blood sugars are improving. He denies any abdominal pain. Afebrile. WBC is 16.5 Hgb 11.7 PHYSICAL EXAM: VITAL SIGNS: Reviewed. GENERAL: Well-developed in no acute distress. ABDOMEN: Soft. Nondistended. Nontender. NEUROLOGIC: Alert and oriented. Cranial nerves II through XII grossly intact. ASSESSMENT: 1. Possible GI bleed with hematemesis and coffee-ground emesis 2. DKA PLAN: -Patient scheduled for EGD tomorrow with Dr. Sweeney -Nothing by mouth after midnight -Continue Protonix -Continue supportive care Physician Uniform Room Attendant note has been reviewed by physician. Signing provider agrees with the documented findings, assessment, and plan of care. Objective - Vital Signs Vital signs: Vital Signs Temp 98.7 F 10/30/22 16:00 Pulse 77 10/30/22 16:00 Resp 12 10/30/22 16:00 BP 119/87 10/30/22 16:00 Pulse Ox 98 10/30/22 16:00 FiO2 Intake & Output 10/29/22 10/30/22 10/30/22 18:59 06:59 18:59 Intake Total 0297.964 4590 750 Output Total 700 600 0 Balance 429.903 730 750 Weight 66.3 kg Intake: IV 200 Potassium Chloride 10 meq 100 In Water For Injection 1 100ml.bag @ 100 mls/hr IVPB Q1H [facility] Rx#: [id number] Sodium Chloride 0.9% 1, 100 000 ml @ 50 mls/hr IV . Q20H [facility] Rx#:[id number] Intake, IV Titration 1129.903 850 100 Amount D5-0.45% NaCl with KCl 900 300 20Meq/l 1,000 ml @ 150 mls/hr IV .Q6H40M [facility] Rx# :[id number] Insulin Regular 100 unit 29.903 In Sodium Chloride 0.9% 100 ml @ 0.1 UNITS/KG/HR 6.643 mls/hr IV .[id number] [facility] Rx#:[id number] Potassium Chloride 10 meq 200 In Water For Injection 1 100ml.bag @ 100 mls/hr IVPB Q1H [facility] Rx#: [id number] Sodium Chloride 0.9% 1, 200 000 ml @ 200 mls/hr IV . Q5H [facility] Rx#:[id number] Sodium Chloride 0.9% 1, 350 100 000 ml @ 50 mls/hr IV . Q20H [facility] Rx#:[id number] Oral 480 450 Output: Urine 700 600 0 - Labs CBC & Chem 7: 10/30/22 05:27 10/30/22 05:27 Labs: Abnormal Lab Results - Last 24 Hours (Table) 10/29/22 10/29/22 10/29/22 Range/Units 22:07 23:07 23:45 WBC (3.8-10.6) k/uL RBC (4.30-5.90) m/uL Hgb (13.0-17.5) gm/dL Hct (39.0-53.0) % Chloride 108 H (98-107) mmol/L Carbon Dioxide 21 L (22-30) mmol/L Glucose 132 H (74-99) mg/dL POC Glucose (mg/dL) 115 H 141 H (70-110) mg/dL Calcium (8.4-10.2) mg/dL 10/30/22 10/30/22 10/30/22 Range/Units 00:12 04:23 05:27 WBC 16.5 H (3.8-10.6) k/uL RBC 3.75 L (4.30-5.90) m/uL Hgb 11.7 L (13.0-17.5) gm/dL Hct 35.2 L (39.0-53.0) % Chloride (98-107) mmol/L Carbon Dioxide (22-30) mmol/L Glucose (74-99) mg/dL POC Glucose (mg/dL) 130 H 161 H (70-110) mg/dL Calcium (8.4-10.2) mg/dL 10/30/22 10/30/22 10/30/22 Range/Units 05:27 06:36 10:52 WBC (3.8-10.6) k/uL RBC (4.30-5.90) m/uL Hgb (13.0-17.5) gm/dL Hct (39.0-53.0) % Chloride 108 H (98-107) mmol/L Carbon Dioxide (22-30) mmol/L Glucose 168 H (74-99) mg/dL POC Glucose (mg/dL) 195 H 138 H (70-110) mg/dL Calcium 8.0 L (8.4-10.2) mg/dL 10/30/22 Range/Units 14:31 WBC (3.8-10.6) k/uL RBC (4.30-5.90) m/uL Hgb (13.0-17.5) gm/dL Hct (39.0-53.0) % Chloride (98-107) mmol/L Carbon Dioxide (22-30) mmol/L Glucose (74-99) mg/dL POC Glucose (mg/dL) 124 H (70-110) mg/dL Calcium (8.4-10.2) mg/dL
[2022-10-30] MEDS ORDERED: DEXTROSE 50% SYRINGE 50 ML IVP PRN ×2 (16:54)
[2022-10-30] MEDS: GABAPENTIN 300 MG CAP PO SCH ×2 (19:10→21:59)
[2022-10-30 20:33] LABS: Glucose,Whole Blood 192 mg/dL (70-110)
[2022-10-30] MEDS: MIRTAZAPINE 15 MG TAB PO SCH (20:44)
[2022-10-31 05:35] LABS: Basophils % (A) 1 %; Eosinophils # (A) 0.1 k/uL (0-0.7); Eosinophils % (A) 2 %; HCT 35.9 % (39.0-53.0); HGB 11.9 gm/dL (13.0-17.5); Lymphocytes # (A) 2.9 k/uL (1.0-4.8); Lymphocytes % (A) 43 %; MCH 30.6 pg (25.0-35.0); MCHC 33.2 g/dL (31.0-37.0); MCV 92.2 fL (80.0-100.0); Mean Platelet Volume 7.3; Monocytes # (A) 0.4 k/uL (0-1.0); Monocytes % (A) 5 %; Neutrophils # (A) 3.2 k/uL (1.3-7.7); Neutrophils % (A) 47 %; Platelet Count 218 k/uL (150-450); RBC 3.89 m/uL (4.30-5.90); RDW 13.7 % (11.5-15.5); WBC 6.7 k/uL (3.8-10.6)
[2022-10-31 06:22] LABS: African American GFR (CKD) >90 (>60 ml/min/1.73 sqM); Anion Gap 11 mmol/L; Blood Urea Nitrogen 8 mg/dL (9-20); Calcium 8.5 mg/dL (8.4-10.2); Carbon Dioxide 24 mmol/L (22-30); Chloride 105 mmol/L (98-107); Glucose 260 mg/dL (74-99); Non-African American GFR(CKD) >90 (>60 ml/min/1.73 sqM); Potassium 3.9 mmol/L (3.5-5.1); Sodium 140 mmol/L (137-145)
[2022-10-31 07:43] LABS: Glucose,Whole Blood 375 mg/dL (70-110)
[2022-10-31] MEDS: INSULIN ASPART (NovoLOG) 100 UNIT/ML VIAL SQ SCH ×5 (07:57→21:16)
[2022-10-31] MEDS ORDERED: PROPOFOL 10 MG/ML 20 ML VIAL IV ONE ×2 (08:27)
[2022-10-31] MEDS ORDERED: LIDOCAINE 2% INJ 20 MG/ML (2 ML VIAL) ONE ×2 (08:27)
[2022-10-31] MEDS ORDERED: IV FLUID CONTINUATION 1,000 ML IV ONE (08:29)
--- NOTE | 2022-10-31 08:42 | P.OP ---
Date of Procedure: 10/31/22 Preoperative Diagnosis: Gastritis Postoperative Diagnosis: Antral gastritis Procedure(s) Performed: EGD Anesthesia: MAC Surgeon: Swapnil Sweeney Pathology: other (Antrum) Condition: stable Disposition: PACU Description of Procedure: The patient's placed on the endoscopy table in the lateral position. He received IV sedation. The gastro-/oropharynx passed in the esophagus and stomach. Scope was then placed through the pylorus. The first and second portion of the duodenum appeared normal. Scope summer back the antrum was mildly inflamed. There was a large amount of retained food in the stomach. The patient had obvious gastroparesis. The food limited vision of the stomach. The scope was retroflexed remainder stomach appeared normal. The GE junction was at 40 cm. The distal esophagus appeared normal. The proximal esophagus appeared normal. Scope withdrawn for patient.
[2022-10-31] MEDS: SODIUM CHLORIDE 0.9% 1,000 ML IV SCH ×2 (09:30→21:20)
[2022-10-31] MEDS: GABAPENTIN 300 MG CAP PO SCH ×3 (09:31→21:15)
[2022-10-31] MEDS: PANTOPRAZOLE 40 MG/10 ML VIAL IVP SCH (09:31)
[2022-10-31] MEDS: LOSARTAN 50 MG TAB PO SCH (09:31)
[2022-10-31] MEDS: buPROPion XL 300 MG TAB.ER.24H PO SCH (09:31)
[2022-10-31] MEDS: INSULIN DETEMIR (LEVEMIR) 100 UNIT/ML SYR SQ SCH (09:31)
[2022-10-31] MEDS: LITHIUM CARBONATE 150 MG CAP PO SCH ×2 (10:30→21:16)
[2022-10-31 11:46] LABS: Glucose,Whole Blood 250 mg/dL (70-110)
[2022-10-31 16:35] LABS: Glucose,Whole Blood 217 mg/dL (70-110)
[2022-10-31 20:36] LABS: Glucose,Whole Blood 226 mg/dL (70-110)
[2022-10-31] MEDS: MIRTAZAPINE 15 MG TAB PO SCH (21:16)
[2022-11-01 06:12] LABS: Glucose,Whole Blood 221 mg/dL (70-110)
[2022-11-01] MEDS: INSULIN ASPART (NovoLOG) 100 UNIT/ML VIAL SQ SCH ×2 (06:51→12:10)
[2022-11-01] MEDS: INSULIN DETEMIR (LEVEMIR) 100 UNIT/ML SYR SQ SCH (06:51)
[2022-11-01] MEDS: GABAPENTIN 300 MG CAP PO SCH (08:35)
[2022-11-01] MEDS: PANTOPRAZOLE 40 MG/10 ML VIAL IVP SCH (08:35)
[2022-11-01] MEDS: buPROPion XL 300 MG TAB.ER.24H PO SCH (08:35)
[2022-11-01] MEDS: LOSARTAN 50 MG TAB PO SCH (08:35)
--- NOTE | 2022-11-01 09:07 | P.PN ---
Progress Note - Text Progress Note Date: 11/01/22 Patient [place] stable. He has no complaints of epigastric pain. On exam vital signs are stable. Abdomen soft. EGD performed yesterday shows significant gastroparesis with retained food. Her some minimal gastritis. Patient is stable for discharge from surgical standpoint.
[2022-11-01 11:45] LABS: Glucose,Whole Blood 201 mg/dL (70-110)
[2022-11-01] MEDS: LITHIUM CARBONATE 150 MG CAP PO SCH (12:40)
[2022-11-01] MEDS: SODIUM CHLORIDE 0.9% 1,000 ML IV SCH (13:02)
[2022-11-01 14:23] VITALS: BP 114/87; PULSE 114; RESP 16; TEMP 98.2
[2022-11-01] MEDS ORDERED: INSULIN ASPART (NovoLOG) 100 UNIT/ML VIAL SQ SCH (17:30)
--- NOTE | 2022-11-02 00:22 | DS ---
DISCHARGE SUMMARY CHIEF COMPLAINT: Diabetic ketoacidosis and hematemesis. HISTORY OF PRESENT ILLNESS AND PHYSICAL EXAMINATION: Details of this man's history and physical can be found in the initial workup. LABORATORY STUDIES: While he was in the hospital, he had laboratory studies, details of which can be found in the laboratory section of his chart. COURSE IN THE HOSPITAL: After admission, he was placed on bedrest and started on intravenous fluids. He was in ICU. His blood sugars were brought down, and his gap closed. He was seen by Surgery and taken for an upper GI endoscopy, which only demonstrated distal antral and duodenal gastritis and duodenitis. He did well. It was felt that he could be discharged home once again on the night. FINAL DIAGNOSES: 1. Diabetic ketoacidosis. 2. Gastritis. 3. Duodenitis. 4. Major depression. 5. Noncompliant individual. 6. Gastroparesis. 7. Peripheral neuropathy. OPERATIONS: Upper gastrointestinal endoscopy. CONSULTATIONS: Psychiatry and Surgery. MMBIANCA / ALDEN: [id number] /
--- NOTE | 2022-11-02 00:40 | PN ---
PROGRESS NOTE DATE OF SERVICE: 10/30/2022 LOCATION: 264. CHIEF COMPLAINT: Acute alcohol intoxication and hematemesis. HISTORY OF PRESENT ILLNESS: This gentleman has been stable. His hemoglobin has dropped slightly. He has had no further signs of bleeding. PHYSICAL EXAMINATION: GENERAL: He remains lethargic. CHEST: Clear. CARDIAC: Normal. ABDOMEN: Flat and nontender. There are no masses. IMPRESSION: 1. Delirium tremens. 2. Hematemesis. 3. Gastroparesis. 4. Depression. PLAN: Continue with ICU management until his DKA is under control. He is also being seen by Surgery and is going to have an endoscopy. MMODL / IJN: [id number] /
--- NOTE | 2022-11-04 08:44 | PN ---
PROGRESS NOTE DATE OF SERVICE: 10/31/2022 CHIEF COMPLAINT: DKA. HISTORY OF PRESENT ILLNESS: This gentleman is little bit more awake and alert and sugars are starting to come down. PHYSICAL EXAMINATION: CHEST: Clear. CARDIAC: Normal. ABDOMEN: Soft, nontender. IMPRESSION: 1. DKA. 2. Uncontrolled type 1 insulin-dependent diabetes mellitus. 3. Gastroparesis. 4. Hematemesis. 5. Peripheral neuropathy. 6. Depression. PLAN: Continue with inpatient management and referred to Psychiatry as well as Surgery. MMODL / IJN: [id number] /
--- NOTE | 2022-11-04 16:25 | CDI ---
Documentation Clarification Form Date: 11/04/2022 04:07:25 PM From: Yvrose Chin Admit Date: 10/28/2022 06:07:00 AM Patient Name: Raul Marquez Visit Number: [id number] Discharge Date: 11/01/2022 04:21:00 PM ATTENTION: The Clinical Documentation Specialists (CDI) and [facility] Coding Staff appreciate your assistance in clarifying documentation. Please respond to the clarification below the line at the bottom and electronically sign. The CDI & [facility] Coding staff will review the response and follow-up if needed. Please note: Queries are made part of the Legal Health Record. If you have any questions, please contact the author of this message via ITS. Dr. Brown Valenzuela Malnutrition is documented in the H&P 10/29/22 but not noted in subsequent documentation. Additional clarification regarding the severity of malnutrition is requested. History/Risk Factors: patient is a 27 year old male, he has been in and out of the hospital at least weekly for the last two years. He is a type 1 Diabetic in diabetic ketoacidosis. Has a history of asthma, neuropathy, generalized anxiety disorder, Major depressive disorder, gastroparesis, and malnutrition. Clinical Indicators: patient is a type 1 Diabetic, hospitalized for multiple episodes of DKA due to medication noncompliance. Presented this admission by ambulance with lethargy, ketoacidosis, throwing up coffee-ground emesis. Concerns for GI bleed, found to have gastritis. White count was found to be at 46.8, and blood sugar 850, sodium 148, potassium 5.2, CO2 7, BUN 31, CREAT 1.38, PHOS 5.7, gastric occult blood positive Current BMI: 18 Dietary Consult: monitor PO, diet education, pt is known to be non-compliant Lab monitoring: blood glucose and elevated AIC Please clarify the type of malnutrition, if known: [ ] Mild Protein-Calorie Malnutrition [ ] Moderate Protein-Calorie Malnutrition [ ] Severe Protein-Calorie Malnutrition [ ] Not clinically significant [ ] Other condition, please specify [ ] Unable to Determine MTDD
--- NOTE | 2022-11-21 15:59 | MISC ---
MISCELLANOUS REPORT Moderate protein-calorie malnutrition. MMODL / IJN: [id number] /
== END 2022-11-01 16:21 | disposition home or self-care (01) | DRG 420 ==
LOC: EC 03:48 → 2SICU 06:07 → 4SSUR 10-31 06:16
PROVIDERS: ADMIT Family Medicine; ATTEND Family Medicine
PROC: 0DB78ZX Excision of Stomach, Pylorus, Via Natural or Artificial Opening Endoscopic, Diagnostic (ICD-10-PCS; principal; 2022-10-31 11:25)
DX: E10.10 Type 1 diabetes mellitus with ketoacidosis without coma (principal); K29.71 Gastritis, unspecified, with bleeding; K29.81 Duodenitis with bleeding; D72.829 Elevated white blood cell count, unspecified; E10.43 Type 1 diabetes mellitus with diabetic autonomic (poly)neuropathy; K31.84 Gastroparesis; E44.0 Moderate protein-calorie malnutrition; N17.9 Acute kidney failure, unspecified; K92.0 Hematemesis; E87.5 Hyperkalemia; F17.290 Nicotine dependence, other tobacco product, uncomplicated; F41.1 Generalized anxiety disorder; F12.90 Cannabis use, unspecified, uncomplicated; E86.0 Dehydration; F32.9 Major depressive disorder, single episode, unspecified; E10.42 Type 1 diabetes mellitus with diabetic polyneuropathy; J45.909 Unspecified asthma, uncomplicated; L30.9 Dermatitis, unspecified; Z91.148 Patient's other noncompliance with medication regimen for other reason; Z79.4 Long term (current) use of insulin; Z28.310 Unvaccinated for COVID-19; Z91.51 Personal history of suicidal behavior; Z79.899 Other long term (current) drug therapy; Z68.1 Body mass index [BMI] 19.9 or less, adult
CPT/HCPCS: 36415; 43239; 80048; 80051; 80053; 82009; 82150; 82271; 82565; 82803; 82947; 83036; 83690; 84100; 84520; 85025; 85027; 88305; 93005; 96361; 96374; 96375; 96376; 99291

== ENCOUNTER 2022-11-14 02:40 | Inpatient (IN) | payer OTHER ==
[2022-11-14 02:47] LABS: Glucose,Whole Blood 571 mg/dL (70-110)
[2022-11-14] MEDS ORDERED: ONDANSETRON 4 MG/2 ML VIAL IVP STA (03:06)
[2022-11-14] MEDS ORDERED: SODIUM CHLORIDE 0.9% 2,000 ML IV STA (03:06)
[2022-11-14 03:18] LABS: Basophils % (A) 0 %; Eosinophils # (A) 0.1 k/uL (0-0.7); Eosinophils % (A) 1 %; HCT 46.2 % (39.0-53.0); HGB 13.9 gm/dL (13.0-17.5); Hypochromasia Slight; Lymphocytes # (A) 2.3 k/uL (1.0-4.8); Lymphocytes % (A) 18 %; MCH 29.2 pg (25.0-35.0); MCHC 30.1 g/dL (31.0-37.0); MCV 96.9 fL (80.0-100.0); Mean Platelet Volume 7.9; Monocytes # (A) 0.5 k/uL (0-1.0); Monocytes % (A) 3 %; Neutrophils # (A) 10.2 k/uL (1.3-7.7); Neutrophils % (A) 77 %; Platelet Count 433 k/uL (150-450); RBC 4.76 m/uL (4.30-5.90); RDW 13.9 % (11.5-15.5); WBC 13.3 k/uL (3.8-10.6)
[2022-11-14 03:32] LABS: ALT 28 U/L (4-49); AST 25 U/L (17-59); African American GFR (CKD) >90 (>60 ml/min/1.73 sqM); Albumin 4.9 g/dL (3.5-5.0); Alkaline Phosphatase 133 U/L (38-126); Blood Urea Nitrogen 25 mg/dL (9-20); Calcium 9.7 mg/dL (8.4-10.2); Chloride 94 mmol/L (98-107); Lipase 135 U/L (23-300); Non-African American GFR(CKD) >90 (>60 ml/min/1.73 sqM); Potassium 5.7 mmol/L (3.5-5.1); Sodium 133 mmol/L (137-145); Total Bilirubin 1.1 mg/dL (0.2-1.3); Total Protein 7.5 g/dL (6.3-8.2)
[2022-11-14 03:55] LABS: Appearance,Urine Clear (Clear); Bilirubin,Urine Negative (Negative); Blood,Urine Negative (Negative); Color,Urine Colorless; Glucose,Urine (UA) 4+ (Negative); Leukocyte Esterase,Urine Negative (Negative); Nitrite,Urine Negative (Negative); Protein,Urine Negative (Negative); Specific Gravity,Urine 1.025 (1.001-1.035); Urobilinogen,Urine <2.0 mg/dL (<2.0)
[2022-11-14 04:12] LABS: Glucose 653 mg/dL (74-99)
[2022-11-14 04:13] LABS: Carbon Dioxide <5 mmol/L (22-30)
[2022-11-14 04:15] LABS: Ketones,Urine 4+ (Negative)
[2022-11-14] MEDS ORDERED: diphenhydrAMINE 50 MG/ML 1 ML VIAL IVP STA (04:31)
[2022-11-14] MEDS ORDERED: METOCLOPRAMIDE 5 MG/ML 2 ML VIAL IVP STA (04:31)
--- NOTE | 2022-11-14 04:56 | ED ---
Nausea/Vomiting/Diarrhea HPI - General Chief complaint: Nausea/Vomiting/Diarrhea Stated complaint: Nausea, Vomiting, DKA Source: patient, EMS Mode of arrival: EMS - History of Present Illness Initial comments: 27-year-old type I diabetic who presents emergency Department with nausea, vomiting and elevated blood glucose. Patient is well-known to our facility for being a noncompliant diabetic. He reports that his mom called EMS. He states that the last he took his insulin was yesterday. Remainder of HPI is limited due to the patient's current state - Related Data Home Medications Medication Instructions Recorded Confirmed Gabapentin 600 mg PO TID 10/14/22 10/30/22 INSULIN ASPART (NovoLOG) [NovoLOG 6 - 10 unit SQ AC-TID 10/14/22 10/28/22 (formulary)] [place] Carbonate 150 mg PO BID 10/14/22 10/30/22 Losartan [Cozaar] 50 mg PO DAILY 10/14/22 10/30/22 buPROPion XL [Wellbutrin XL] 300 mg PO DAILY 10/14/22 10/30/22 Mirtazapine [Remeron] 15 mg PO HS 10/28/22 10/30/22 Previous Rx's Medication Instructions Recorded Insulin Detemir (Levemir) [Levemir] 28 unit SQ DAILY@0700 30 Days #1 10/03/22 each INSULIN ASPART (NovoLOG) [NovoLOG 8 unit SQ AC-TID #90 each 11/01/22 (formulary)] Allergies Allergy/AdvReac Type Severity Reaction Status Date / Time No Known Allergies Allergy Verified 10/28/22 07:08 Review of Systems ROS Statement: Those systems with pertinent positive or pertinent negative responses have been documented in the HPI. ROS Other: All systems not noted in ROS Statement are negative. Past Medical History Past Medical History: Asthma, Diabetes Mellitus, Neurologic Disorder, Skin Disorder Additional Past Medical History / Comment(s): IDDM type I, neuropathy bilateral feet, DKA, eczema. History of Any Multi-Drug Resistant Organisms: None Reported Past Surgical History: Adenoidectomy Additional Past Surgical History / Comment(s): 2002 Past Anesthesia/Blood Transfusion Reactions: No Reported Reaction Past Psychological History: Anxiety, Depression Smoking Status: Current every day smoker, Vaper Past Alcohol Use History: None Reported Past Drug Use History: None Reported - Past Family History Mother Family Medical History: CVA/TIA Additional Family Medical History / Comment(s): TIA Father Family Medical History: Hyperlipidemia, Hypertension Additional Family Medical History / Comment(s): . Course Vital Signs 11/14/22 11/14/22 11/14/22 02:46 03:08 05:27 Pulse Rate 130 H 129 H 138 H Respiratory 17 20 15 Rate Blood Pressure 117/90 O2 Sat by Pulse 100 99 98 Oximetry Medical Decision Making - Medical Decision Making Was pt. sent in by a medical professional or institution ([facility]ero, [facility], urgent care, hospital, or intermediate...) When possible be specific @ -[No] Did you speak to anyone other than the patient for history (EMS, parent, family, police, friend...)? What history was obtained from this source @ -[No] Did you review nursing and triage notes (agree or disagree)? Why? @ -[I reviewed and agree with nursing and triage notes] Were old charts reviewed (outside hosp., previous admission, EMS record, old EKG, old radiological studies, urgent care reports/EKG's, intermediate records)? Report findings @ -[No old charts were reviewed] Differential Diagnosis (chest pain, altered mental status, abdominal pain women, abdominal pain men, vaginal bleeding, weakness, fever, dyspnea, syncope, headache, dizziness, GI bleed, back pain, seizure, CVA, palpatations, mental health, musculoskeletal)? @ -[not applicable] EKG interpreted by me (3pts min.). @ -Yes and demonstrates sinus tachycardia with a rate of 137.. LA interval 120. QRS 94. QTC was 379 X-rays interpreted by me (1pt min.). @ -[None done] CT interpreted by me (1pt min.). @ -[None done] U/S interpreted by me (1pt. min.). @ -[None done] What testing was considered but not performed or refused? (CT, X-rays, U/S, labs)? Why? @ -[None] What meds were considered but not given or refused? Why? @ -[None] Did you discuss the management of the patient with other professionals (professionals i.e. [facility] Lucero, [facility], lab, RT, psych nurse, social contact worker, hand stone polisher, teacher, mortgage loan officer originator, pillowcase maker)? Give summary @ -[No] Was smoking cessation discussed for >3mins.? @ -[No] Was critical care preformed (if so, how long)? @ -[No] Were there social determinants of health that impacted care today? How? (Homelessness, low income, unemployed, alcoholism, drug addiction, transportation, low edu. Level, literacy, decrease access to med. care, care home, rehab)? @ -[No] Was there de-escalation of care discussed even if they declined (Discuss DNR or withdrawal of care, Hospice)? DNR status @ -[No] What co-morbidities impacted this encounter? (DM, HTN, Smoking, COPD, CAD, Cancer, CVA, ARF, Chemo, Hep., AIDS, mental health diagnosis, sleep apnea, morbid obesity)? @ -[None] Was patient admitted / discharged? Hospital course, mention meds given and route, prescriptions, significant lab abnormalities, going to OR and other pertinent info. @ -Upon arrival patient was placed into room 2. A thorough history and physical exam was performed. IV access is established. He is given 2 L bolus of normal saline. Laboratory studies were conducted. CO2 less than 5. Glucose 653. Insulin drip is started. Patient will be admitted to ICU. Spoke with Adam from pulmonology who agreed to admit the patient. Spoke with Dr. Valenzuela for admission Undiagnosed new problem with uncertain prognosis? @ -[No] Drug Therapy requiring intensive monitoring for toxicity (Heparin, Nitro, Insulin, Cardizem)? @ -[No] Were any procedures done? @ -[No] Diagnosis/symptom? @ -[default] Acute, or Chronic, or Acute on Chronic? @ -[default] Uncomplicated (without systemic symptoms) or Complicated (systemic symptoms)? @ -[default] Side effects of treatment? @ -[No] Exacerbation, Progression, or Severe Exacerbation? @ -[No] Poses a threat to life or bodily function? How? (Chest pain, [place], [place], pneumonia, PE, COPD, DKA, ARF, appy, cholecystitis, CVA, Diverticulitis, Homicidal, Suicidal, threat to staff... and all critical care pts) @ -[No] - Lab Data Result diagrams: 11/14/22 03:08 11/14/22 06:45 Lab Results 11/14/22 11/14/22 11/14/22 Range/Units 02:44 03:08 03:08 WBC 13.3 H (3.8-10.6) k/uL RBC 4.76 (4.30-5.90) m/uL Hgb 13.9 (13.0-17.5) gm/dL Hct 46.2 (39.0-53.0) % MCV 96.9 (80.0-100.0) fL MCH 29.2 (25.0-35.0) pg MCHC 30.1 L (31.0-37.0) g/dL RDW 13.9 (11.5-15.5) % Plt Count 433 (150-450) k/uL MPV 7.9 Neutrophils % 77 % Lymphocytes % 18 % Monocytes % 3 % Eosinophils % 1 % Basophils % 0 % Neutrophils # 10.2 H (1.3-7.7) k/uL Lymphocytes # 2.3 (1.0-4.8) k/uL Monocytes # 0.5 (0-1.0) k/uL Eosinophils # 0.1 (0-0.7) k/uL Basophils # 0.0 (0-0.2) k/uL Hypochromasia Slight Sodium 133 L (137-145) mmol/L Potassium 5.7 H (3.5-5.1) mmol/L Chloride 94 L (98-107) mmol/L Carbon Dioxide <5 L* (22-30) mmol/L Anion Gap mmol/L BUN 25 H (9-20) mg/dL Creatinine 0.97 (0.66-1.25) mg/dL Est GFR (CKD-EPI)AfAm >90 (>60 ml/min/1.73 sqM) Est GFR (CKD-EPI)NonAf >90 (>60 ml/min/1.73 sqM) Glucose 653 H* (74-99) mg/dL POC Glucose (mg/dL) 571 H (70-110) mg/dL POC Glu Computer Compositor ID Meli Molina Calcium 9.7 (8.4-10.2) mg/dL Total Bilirubin 1.1 (0.2-1.3) mg/dL AST 25 (17-59) U/L ALT 28 (4-49) U/L Alkaline Phosphatase 133 H (38-126) U/L Total Protein 7.5 (6.3-8.2) g/dL Albumin 4.9 (3.5-5.0) g/dL Lipase 135 (23-300) U/L Urine Color Urine Appearance (Clear) Urine pH (5.0-8.0) Ur Specific [place] (1.001-1.035) Urine Protein (Negative) Urine Glucose (UA) (Negative) Urine Ketones (Negative) Urine Blood (Negative) Urine Nitrite (Negative) Urine Bilirubin (Negative) Urine Urobilinogen (<2.0) mg/dL Ur Leukocyte Esterase (Negative) Acetone, Qual Positive (Negative) 11/14/22 Range/Units 03:50 WBC (3.8-10.6) k/uL RBC (4.30-5.90) m/uL Hgb (13.0-17.5) gm/dL Hct (39.0-53.0) % MCV (80.0-100.0) fL MCH (25.0-35.0) pg MCHC (31.0-37.0) g/dL RDW (11.5-15.5) % Plt Count (150-450) k/uL MPV Neutrophils % % Lymphocytes % % Monocytes % % Eosinophils % % Basophils % % Neutrophils # (1.3-7.7) k/uL Lymphocytes # (1.0-4.8) k/uL Monocytes # (0-1.0) k/uL Eosinophils # (0-0.7) k/uL Basophils # (0-0.2) k/uL Hypochromasia Sodium (137-145) mmol/L Potassium (3.5-5.1) mmol/L Chloride (98-107) mmol/L Carbon Dioxide (22-30) mmol/L Anion Gap mmol/L BUN (9-20) mg/dL Creatinine (0.66-1.25) mg/dL Est GFR (CKD-EPI)AfAm (>60 ml/min/1.73 sqM) Est GFR (CKD-EPI)NonAf (>60 ml/min/1.73 sqM) Glucose (74-99) mg/dL POC Glucose (mg/dL) (70-110) mg/dL POC Glu Computer Compositor ID Calcium (8.4-10.2) mg/dL Total Bilirubin (0.2-1.3) mg/dL AST (17-59) U/L ALT (4-49) U/L Alkaline Phosphatase (38-126) U/L Total Protein (6.3-8.2) g/dL Albumin (3.5-5.0) g/dL Lipase (23-300) U/L Urine Color Colorless Urine Appearance Clear (Clear) Urine pH 5.0 (5.0-8.0) Ur Specific [place] 1.025 (1.001-1.035) Urine Protein Negative (Negative) Urine Glucose (UA) 4+ H (Negative) Urine Ketones 4+ H (Negative) Urine Blood Negative (Negative) Urine Nitrite Negative (Negative) Urine Bilirubin Negative (Negative) Urine Urobilinogen <2.0 (<2.0) mg/dL Ur Leukocyte Esterase Negative (Negative) Acetone, Qual (Negative) Disposition Clinical Impression: DKA (diabetic ketoacidoses), Nausea & vomiting Disposition: ADMITTED IP TO THIS [facility] Condition: Serious Is patient prescribed a controlled substance at d/c from ED?: No Time of Disposition: 04:55 Decision to Admit Reason: Admit from EC Decision Date: 11/14/22 Decision Time: 04:55
[2022-11-14] MEDS ORDERED: INSULIN REGULAR 100 UNIT in SODIUM CHLORIDE 0.9% 100 ML IV SCH ×2 (05:00→17:30)
[2022-11-14 06:45] LABS: Glucose,Whole Blood >600 mg/dL (70-110)
[2022-11-14 07:31] LABS: Phosphorus 7.1 mg/dL (2.5-4.5)
[2022-11-14 09:28] LABS: African American GFR (CKD) >90 (>60 ml/min/1.73 sqM); Anion Gap 25 mmol/L; Blood Urea Nitrogen 28 mg/dL (9-20); Carbon Dioxide 11 mmol/L (22-30); Chloride 108 mmol/L (98-107); Glucose 335 mg/dL (74-99); Non-African American GFR(CKD) >90 (>60 ml/min/1.73 sqM); Potassium 4.7 mmol/L (3.5-5.1); Sodium 144 mmol/L (137-145)
[2022-11-14 09:36] LABS: Glucose,Whole Blood 320 mg/dL (70-110)
[2022-11-14 10:36] LABS: Glucose,Whole Blood 371 mg/dL (70-110)
[2022-11-14 11:40] LABS: Glucose,Whole Blood 229 mg/dL (70-110)
[2022-11-14] MEDS: D5-0.45% NACL WITH KCL 20MEQ/L 1,000 ML IV SCH ×2 (11:59→18:48)
[2022-11-14] MEDS: INSULIN ASPART (NovoLOG) 100 UNIT/ML VIAL SQ SCH ×2 (12:06→17:18)
[2022-11-14 12:28] LABS: African American GFR (CKD) >90 (>60 ml/min/1.73 sqM); Anion Gap 22 mmol/L; Blood Urea Nitrogen 27 mg/dL (9-20); Carbon Dioxide 13 mmol/L (22-30); Chloride 110 mmol/L (98-107); Glucose 259 mg/dL (74-99); Non-African American GFR(CKD) >90 (>60 ml/min/1.73 sqM); Potassium 4.8 mmol/L (3.5-5.1); Sodium 145 mmol/L (137-145)
[2022-11-14 12:44] LABS: Glucose,Whole Blood 196 mg/dL (70-110)
--- NOTE | 2022-11-14 13:29 | P.CN ---
Psychiatric Consult - . Consult date: 11/14/22 Consult:: Psychiatry was consulted for "depression" today. As listed in previous psych consult notes, patient has a strong hx of multiple admissions in the past for dka and non comnpliance. patient is well known to both medical provider and psychiatry. patients depression and non compliance are very chronic issues and psychiatry has attempted several times in the past to coordinate care for him and get him connected with h/follow up and with housing however patient refuses time and time again. Cartridge Assembling Machine Adjuster spoke with pts nurse today in the ER and explained the situation and obtained further information. Upon reviewing the intake notes, speaking with the nurse and also reviewing nursing/triage notes, patient has NOT been endorsing depression or suicidal/homicidal thoughts on this visit. no acute mental health issues appear to be present at this time and at this time proposal lead writer will again await primary provider to contact him directly with any acute mental health concerns about patient. Thank you 11/14/22 13:25
[2022-11-14 13:40] LABS: Glucose,Whole Blood 144 mg/dL (70-110)
[2022-11-14 14:31] LABS: Glucose,Whole Blood 112 mg/dL (70-110)
[2022-11-14 15:48] LABS: Glucose,Whole Blood 94 mg/dL (70-110)
[2022-11-14 16:47] LABS: Glucose,Whole Blood 110 mg/dL (70-110)
[2022-11-14 17:07] LABS: Glucose,Whole Blood 113 mg/dL (70-110)
[2022-11-14] MEDS ORDERED: Potassium Replacement Protocol 1 EACH MISC MISCELLANE PRN (17:27)
[2022-11-14] MEDS ORDERED: DEXTROSE 50% SYRINGE 50 ML IVP PRN ×2 (17:27)
[2022-11-14] MEDS ORDERED: Magnesium Replacement Protocol 1 EACH MISC MISCELLANE PRN (17:27)
[2022-11-14] MEDS ORDERED: SODIUM CHLORIDE 0.9% 1,000 ML IV SCH (17:30)
[2022-11-14] MEDS: GABAPENTIN 300 MG CAP PO SCH ×2 (17:59→23:18)
[2022-11-14 18:19] LABS: Glucose,Whole Blood 233 mg/dL (70-110)
[2022-11-14 18:22] LABS: Basophils # (A) 0.1 k/uL (0-0.2); Basophils % (A) 0 %; Eosinophils # (A) 0.3 k/uL (0-0.7); Eosinophils % (A) 1 %; HCT 38.1 % (39.0-53.0); HGB 12.4 gm/dL (13.0-17.5); Lymphocytes # (A) 2.2 k/uL (1.0-4.8); Lymphocytes % (A) 9 %; MCH 31.1 pg (25.0-35.0); MCHC 32.7 g/dL (31.0-37.0); MCV 95.3 fL (80.0-100.0); Mean Platelet Volume 6.9; Monocytes # (A) 1.3 k/uL (0-1.0); Monocytes % (A) 6 %; Neutrophils # (A) 19.7 k/uL (1.3-7.7); Neutrophils % (A) 83 %; Platelet Count 393 k/uL (150-450); RDW 13.8 % (11.5-15.5); VBG PH 7.28 (7.31-7.41); WBC 23.8 k/uL (3.8-10.6)
[2022-11-14 18:43] LABS: African American GFR (CKD) >90 (>60 ml/min/1.73 sqM); Anion Gap 16 mmol/L; Blood Urea Nitrogen 24 mg/dL (9-20); Carbon Dioxide 17 mmol/L (22-30); Chloride 102 mmol/L (98-107); Non-African American GFR(CKD) >90 (>60 ml/min/1.73 sqM); Sodium 135 mmol/L (137-145)
[2022-11-14 19:01] LABS: Glucose,Whole Blood 265 mg/dL (70-110)
[2022-11-14 20:17] LABS: Glucose,Whole Blood 235 mg/dL (70-110)
[2022-11-14 21:17] LABS: Glucose,Whole Blood 249 mg/dL (70-110)
[2022-11-14] MEDS: LITHIUM CARBONATE 150 MG CAP PO SCH (21:17)
[2022-11-14] MEDS: MIRTAZAPINE 15 MG TAB PO SCH (21:17)
[2022-11-14 22:19] LABS: Glucose,Whole Blood 219 mg/dL (70-110)
[2022-11-14] MEDS ORDERED: PANTOPRAZOLE 40 MG TABLET PO SCH (22:30)
[2022-11-14] MEDS ORDERED: PANTOPRAZOLE 40 MG TABLET PO STA (23:11)
[2022-11-14 23:18] LABS: Glucose,Whole Blood 218 mg/dL (70-110)
[2022-11-14 23:56] LABS: Magnesium 1.8 mg/dL (1.6-2.3); Potassium 4.1 mmol/L (3.5-5.1)
[2022-11-15 00:19] LABS: Glucose,Whole Blood 200 mg/dL (70-110)
[2022-11-15] MEDS: D5-0.45% NACL WITH KCL 20MEQ/L 1,000 ML IV SCH (00:50)
[2022-11-15] MEDS ORDERED: MAGNESIUM SULFATE-D5W PMX 1 GM in DEXTROSE/WATER 1 100ML.BAG IVPB ONE (01:00)
[2022-11-15 01:04] LABS: Glucose,Whole Blood 172 mg/dL (70-110)
[2022-11-15 02:12] LABS: Glucose,Whole Blood 160 mg/dL (70-110)
[2022-11-15 03:10] LABS: Glucose,Whole Blood 141 mg/dL (70-110)
[2022-11-15 04:10] LABS: Glucose,Whole Blood 131 mg/dL (70-110)
[2022-11-15 04:50] LABS: Basophils # (A) 0.1 k/uL (0-0.2); Basophils % (A) 1 %; Eosinophils # (A) 0.2 k/uL (0-0.7); Eosinophils % (A) 1 %; HCT 36.3 % (39.0-53.0); HGB 12.4 gm/dL (13.0-17.5); Lymphocytes # (A) 3.9 k/uL (1.0-4.8); Lymphocytes % (A) 21 %; MCH 31.6 pg (25.0-35.0); MCV 92.7 fL (80.0-100.0); Mean Platelet Volume 6.5; Monocytes # (A) 1.1 k/uL (0-1.0); Monocytes % (A) 6 %; Neutrophils % (A) 70 %; Platelet Count 332 k/uL (150-450); RBC 3.92 m/uL (4.30-5.90); RDW 13.9 % (11.5-15.5); WBC 18.5 k/uL (3.8-10.6)
[2022-11-15 05:01] LABS: African American GFR (CKD) >90 (>60 ml/min/1.73 sqM); Anion Gap 9 mmol/L; Blood Urea Nitrogen 15 mg/dL (9-20); Calcium 8.5 mg/dL (8.4-10.2); Carbon Dioxide 24 mmol/L (22-30); Chloride 103 mmol/L (98-107); Glucose 126 mg/dL (74-99); Magnesium 2.4 mg/dL (1.6-2.3); Non-African American GFR(CKD) >90 (>60 ml/min/1.73 sqM); Potassium 3.8 mmol/L (3.5-5.1); Sodium 136 mmol/L (137-145)
[2022-11-15 05:13] LABS: Glucose,Whole Blood 138 mg/dL (70-110)
[2022-11-15] MEDS: POTASSIUM CHLORIDE 10 MEQ in WATER FOR INJECTION 1 100ML.BAG IVPB SCH ×2 (05:39→06:49)
[2022-11-15 06:07] LABS: Glucose,Whole Blood 157 mg/dL (70-110)
[2022-11-15] MEDS: PANTOPRAZOLE 40 MG TABLET PO SCH ×2 (06:08→16:51)
[2022-11-15 07:07] LABS: Glucose,Whole Blood 200 mg/dL (70-110)
[2022-11-15] MEDS: INSULIN DETEMIR (LEVEMIR) 100 UNIT/ML SYR SQ SCH (07:09)
[2022-11-15] MEDS: INSULIN ASPART (NovoLOG) 100 UNIT/ML VIAL SQ SCH ×3 (07:13→16:51)
[2022-11-15] MEDS: GABAPENTIN 300 MG CAP PO SCH ×3 (08:21→20:47)
[2022-11-15] MEDS: LOSARTAN 50 MG TAB PO SCH (08:21)
[2022-11-15] MEDS: LITHIUM CARBONATE 150 MG CAP PO SCH ×2 (08:21→20:47)
[2022-11-15] MEDS: buPROPion XL 300 MG TAB.ER.24H PO SCH (08:22)
[2022-11-15 12:18] LABS: African American GFR (CKD) >90 (>60 ml/min/1.73 sqM); Anion Gap 5 mmol/L; Blood Urea Nitrogen 9 mg/dL (9-20); Carbon Dioxide 28 mmol/L (22-30); Chloride 99 mmol/L (98-107); Non-African American GFR(CKD) >90 (>60 ml/min/1.73 sqM); Phosphorus 2.2 mg/dL (2.5-4.5); Sodium 132 mmol/L (137-145)
[2022-11-15 12:32] LABS: Glucose,Whole Blood 129 mg/dL (70-110)
[2022-11-15 12:38] VITALS: BMI 25.1
[2022-11-15 16:40] LABS: Glucose,Whole Blood 153 mg/dL (70-110)
[2022-11-15 20:46] LABS: Glucose,Whole Blood 253 mg/dL (70-110)
[2022-11-15] MEDS: MIRTAZAPINE 15 MG TAB PO SCH (20:47)
[2022-11-15] MEDS ORDERED: DEXTROSE 50% SYRINGE 50 ML IVP PRN ×2 (21:49)
[2022-11-16 01:47] LABS: Glucose,Whole Blood 309 mg/dL (70-110)
[2022-11-16] MEDS: INSULIN ASPART (NovoLOG) 100 UNIT/ML VIAL SQ SCH ×7 (01:53→17:44)
--- NOTE | 2022-11-16 04:10 | HP ---
HISTORY AND PHYSICAL CHIEF COMPLAINT: DKA. HISTORY OF PRESENT ILLNESS: Another admission for this 27-year-old white male who was in and out of the hospital all the time because he will not take insulin. He came in this time with a blood sugar of over 700. REVIEW OF SYSTEMS: Not obtained at this time because of his lethargy. PAST MEDICAL HISTORY, FAMILY HISTORY, PERSONAL AND SOCIAL HISTORIES: All otherwise unchanged from his recent admitting discharge summaries. He is in the hospital almost every week. He is homeless. PHYSICAL EXAMINATION: VITAL SIGNS: Blood pressure is 121/55 with a pulse of 94, respirations of 36. GENERAL: He appeared to be disheveled, lethargic, and dehydrated. HEENT: Head, ears, eyes, and nose were normal. CHEST: Clear. CARDIAC: Exam is normal except for tachycardia. ABDOMEN: Flat, soft, and there are no masses or visceromegaly. EXTREMITIES: Normal. NEUROLOGICAL: He is lethargic. IMPRESSION: 1. Diabetic ketoacidosis. 2. Type 1 insulin-dependent diabetes mellitus. 3. Noncompliance. 4. Depression. 5. Peripheral neuropathy. PLAN: 1. ICU management for DKA. 2. Psych consult. MMODL / IJN: [id number] /
[2022-11-16 06:20] LABS: Glucose,Whole Blood 210 mg/dL (70-110)
[2022-11-16 07:51] LABS: Glucose,Whole Blood 299 mg/dL (70-110)
[2022-11-16] MEDS: INSULIN DETEMIR (LEVEMIR) 100 UNIT/ML SYR SQ SCH (08:20)
[2022-11-16] MEDS: PANTOPRAZOLE 40 MG TABLET PO SCH ×2 (08:21→17:44)
[2022-11-16] MEDS: buPROPion XL 300 MG TAB.ER.24H PO SCH (08:21)
[2022-11-16] MEDS: GABAPENTIN 300 MG CAP PO SCH ×2 (08:21→16:31)
[2022-11-16] MEDS: LITHIUM CARBONATE 150 MG CAP PO SCH (08:23)
[2022-11-16] MEDS: LOSARTAN 50 MG TAB PO SCH (08:29)
[2022-11-16 12:06] LABS: Glucose,Whole Blood 204 mg/dL (70-110)
[2022-11-16 15:01] VITALS: BP 99/61; PULSE 124; RESP 16; TEMP 98.1
[2022-11-16 17:28] LABS: Glucose,Whole Blood 120 mg/dL (70-110)
--- NOTE | 2022-11-19 01:33 | PN ---
PROGRESS NOTE DATE OF SERVICE: 11/15/2022 CHIEF COMPLAINT: Diabetic ketoacidosis. HISTORY OF PRESENT ILLNESS: This gentleman remains quite lethargic. Sugars are coming down, but gap is not closed. PHYSICAL EXAMINATION: GENERAL: He is still dehydrated. He is arousable. CHEST: Clear. CARDIAC: Normal. ABDOMEN: Soft, nontender. IMPRESSION: Diabetic ketoacidosis. PLAN: 1. Continue with management of his diabetic process. 2. Psychiatric consult. MMODL / IJN: [id number] /
--- NOTE | 2022-11-19 02:02 | DS ---
DISCHARGE SUMMARY CHIEF COMPLAINT: DKA. HISTORY OF PRESENT ILLNESS AND PHYSICAL EXAM: Details of this man's history and physical can be found in the initial workup. LABORATORY STUDIES: While he was in the hospital, he had laboratory studies, details of which can be found in the laboratory section of his chart. COURSE IN THE HOSPITAL: After admission, he was placed on bedrest, started on intravenous fluids and IV insulin, currently on DKA protocol. Sugars came down. He became more alert. Gap closed and he was doing well and eating and sugars were under good control and was felt that he could go home on the . He will go home on his usual activity, diet, and medication and follow up in the office in few days. FINAL DIAGNOSES: 1. Diabetic ketoacidosis. 2. Uncontrolled type 1 insulin-dependent diabetes mellitus. 3. Noncompliant individual. 4. Peripheral neuropathy. OPERATIONS: None. CONSULTATIONS: Intensive Medicine. He is improved. MMSHANEL / TRAMN: [id number] /
== END 2022-11-16 20:57 | disposition home or self-care (01) | DRG 420 ==
LOC: EC 02:40 → 2SICU 04:48 → 6NMEDSUR 11-15 21:13
PROVIDERS: ADMIT Family Medicine; ATTEND Family Medicine
DX: E10.10 Type 1 diabetes mellitus with ketoacidosis without coma (principal); F17.290 Nicotine dependence, other tobacco product, uncomplicated; F32.A Depression, unspecified; E10.42 Type 1 diabetes mellitus with diabetic polyneuropathy; F41.9 Anxiety disorder, unspecified; E86.0 Dehydration; Z79.4 Long term (current) use of insulin; J44.0 Chronic obstructive pulmonary disease with (acute) lower respiratory infection; T38.3X6A Underdosing of insulin and oral hypoglycemic [antidiabetic] drugs, initial encounter; Z91.128 Patient's intentional underdosing of medication regimen for other reason; Z28.21 Immunization not carried out because of patient refusal; Z79.899 Other long term (current) drug therapy
CPT/HCPCS: 36415; 80048; 80051; 80053; 81003; 82009; 82565; 82803; 82947; 83036; 83690; 83735; 84100; 84520; 85025; 93005

== ENCOUNTER 2022-11-19 14:15 | Inpatient (IN) | payer OTHER ==
[2022-11-19] MEDS ORDERED: DEXTROSE 50% SYRINGE 50 ML IVP PRN ×2 (14:22)
[2022-11-19] MEDS ORDERED: Magnesium Replacement Protocol 1 EACH MISC MISCELLANE PRN (14:22)
[2022-11-19] MEDS ORDERED: Potassium Replacement Protocol 1 EACH MISC MISCELLANE PRN (14:22)
[2022-11-19] MEDS ORDERED: INSULIN REGULAR BOLUS (FROM DRIP BAG) IV ONE (14:22)
[2022-11-19] MEDS ORDERED: SODIUM CHLORIDE 0.9% 1,000 ML IV ONE (14:24)
[2022-11-19] MEDS ORDERED: SODIUM CHLORIDE 0.9% 500 ML 500 ML IV ONE (14:24)
[2022-11-19 14:26] LABS: Glucose,Whole Blood >600 mg/dL (70-110)
[2022-11-19] MEDS ORDERED: ONDANSETRON 4 MG/2 ML VIAL IVP STA ×2 (14:26→20:28)
--- NOTE | 2022-11-19 14:26 | ED ---
General Adult HPI - General Stated complaint: Hyperglycemia Time Seen by Provider: 11/19/22 14:20 Source: patient, RN notes reviewed, old records reviewed - History of Present Illness Initial comments: This is a 27-year-old male who has a past medical history significant for diabetes and multiple ER visits for DKA. Patient states couple hours ago started having nausea and vomiting and his sugar started high. Patient refused to answer question whether or not he was or was not taking his insulin. Patient denies any recent fever chills per patient denies any drug use. Patient denies any chest pain or difficulty breathing. Patient denies lightheadedness or dizziness he states he just can't stop vomiting feels sick and has abdominal cramping but no actual pain. - Related Data Home Medications Medication Instructions Recorded Confirmed Gabapentin 600 mg PO TID 10/14/22 11/19/22 [place] Carbonate 150 mg PO BID 10/14/22 11/19/22 Losartan [Cozaar] 50 mg PO DAILY 10/14/22 11/19/22 buPROPion XL [Wellbutrin XL] 300 mg PO DAILY 10/14/22 11/19/22 Mirtazapine [Remeron] 15 mg PO HS 10/28/22 11/19/22 INSULIN ASPART (NovoLOG) [NovoLOG 7 unit SQ AC-TID 11/14/22 11/19/22 (formulary)] Previous Rx's Medication Instructions Recorded Insulin Detemir (Levemir) [Levemir] 28 unit SQ DAILY@0700 30 Days #1 10/03/22 each Allergies Allergy/AdvReac Type Severity Reaction Status Date / Time No Known Allergies Allergy Verified 11/19/22 17:27 Review of Systems ROS Statement: Those systems with pertinent positive or pertinent negative responses have been documented in the HPI. ROS Other: All systems not noted in ROS Statement are negative. Past Medical History Past Medical History: Asthma, Diabetes Mellitus, Neurologic Disorder, Skin Disorder Additional Past Medical History / Comment(s): IDDM type I, neuropathy bilateral feet, DKA, eczema. History of Any Multi-Drug Resistant Organisms: None Reported Past Surgical History: Adenoidectomy Additional Past Surgical History / Comment(s): 2003 Recent EGD- gastritis Past Anesthesia/Blood Transfusion Reactions: No Reported Reaction Past Psychological History: Anxiety, Depression Additional Psychological History / Comment(s): Pt has had multiple psychiatric admissions for depression/suicide attempts. Smoking Status: Current every day smoker, Vaper Past Alcohol Use History: None Reported Additional Past Alcohol Use History / Comment(s): Pt started smoking cigarettes as a teen and quit "long ago." Pt started occasional vaping in 2009. Past Drug Use History: None Reported - Past Family History Mother Family Medical History: CVA/TIA Additional Family Medical History / Comment(s): TIA Father Family Medical History: Hyperlipidemia, Hypertension Additional Family Medical History / Comment(s): . General Exam - General Exam Comments Initial Comments: GENERAL: Patient is well-developed and well-nourished. Patient is nontoxic and well- hydrated and is in moderate distress. ENT: Neck is soft and supple. No significant lymphadenopathy is noted. Oropharynx is clear. Moist mucous membranes. Neck has full range of motion without eliciting any pain. EYES: The sclera were anicteric and conjunctiva were pink and moist. Extraocular movements were intact and pupils were equal round and reactive to light. Eyelids were unremarkable. PULMONARY: Unlabored respirations. Good breath sounds bilaterally. No audible rales rhonchi or wheezing was noted. CARDIOVASCULAR: There is a regular rate and rhythm without any murmurs gallops or rubs. ABDOMEN: Soft and nontender with normal bowel sounds. SKIN: Skin is clear with no lesions or rashes and otherwise unremarkable. NEUROLOGIC: Patient is alert and oriented x3. Cranial nerves II through XII are grossly intact. Motor and sensory are also intact. Normal speech, volume and content. Symmetrical smile. MUSCULOSKELETAL: Normal extremities with adequate strength and full range of motion. LYMPHATICS: No significant lymphadenopathy is noted PSYCHIATRIC: Normal psychiatric evaluation. Head exam: Present: other Course Vital Signs 11/19/22 11/19/22 11/20/22 14:23 21:00 02:55 Temperature 98.8 F 98.4 F Pulse Rate 134 H 128 H 116 H Respiratory 26 H 28 H 18 Rate Blood Pressure 108/68 101/66 121/74 O2 Sat by Pulse 100 98 98 Oximetry 11/20/22 04:00 Temperature 98.1 F Pulse Rate 115 H Respiratory 20 Rate Blood Pressure 122/80 O2 Sat by Pulse 97 Oximetry Medical Decision Making - Medical Decision Making EKG was interpreted by myself shows a sinus tachycardia at 131 bpm MA interval 152 QRS is 97 QT interval 04 QTC is 381. Was pt. sent in by a medical professional or institution ([facility], [employer], urgent care, hospital, or senior living...) When possible be specific @ -No Did you speak to anyone other than the patient for history (EMS, parent, family, police, friend...)? What history was obtained from this source @ -EMS gave most of the history because the patient was having intractable vomiting Did you review nursing and triage notes (agree or disagree)? Why? @ -Yes Were old charts reviewed (outside hosp., previous admission, EMS record, old EKG, old radiological studies, urgent care reports/EKG's, senior living records)? Report findings @ -Reviewed prior laboratory prior charts on this patient Differential Diagnosis (chest pain, altered mental status, abdominal pain women, abdominal pain men, vaginal bleeding, weakness, fever, dyspnea, syncope, headache, dizziness, GI bleed, back pain, seizure, CVA, palpatations, mental health, musculoskeletal)? @ -Differential Abdominal Pain Men: Appendicitis, cholecystitis, diverticulosis, ischemic bowel, DKA, pancreatitis, hepatitis, UTI, gastroenteritis, AAA, incarcerated hernia, bowel obstruction, constipation, inflammatory bowel, hepatitis, peptic ulcer disease, splenic infarction, perforated viscus, testicular torsion, this is not meant to be an all-inclusive list EKG interpreted by me (3pts min.). @ -As above X-rays interpreted by me (1pt min.). @ -None done CT interpreted by me (1pt min.). @ -None done U/S interpreted by me (1pt. min.). @ -None done What testing was considered but not performed or refused? (CT, X-rays, U/S, labs)? Why? @ -None What meds were considered but not given or refused? Why? @ -None Did you discuss the management of the patient with other professionals (professionals i.e. [facility], [employer], lab, RT, psych nurse, social security assessor, agriculturist, teacher, banking services officer, registered nurse hh case manager)? Give summary @ -I spoke to Dr. Schwartz and he agreed to admit the patient admitted the patient wrote admitting orders Was smoking cessation discussed for >3mins.? @ -No Was critical care preformed (if so, how long)? @ -35 minutes Were there social determinants of health that impacted care today? How? (Homelessness, low income, unemployed, alcoholism, drug addiction, transportation, low edu. Level, literacy, decrease access to med. care, skilled nursing, rehab)? @ -No Was there de-escalation of care discussed even if they declined (Discuss DNR or withdrawal of care, Hospice)? DNR status @ -No What co-morbidities impacted this encounter? (DM, HTN, Smoking, COPD, CAD, Cancer, CVA, ARF, Chemo, Hep., AIDS, mental health diagnosis, sleep apnea, morbid obesity)? @ -None Was patient admitted / discharged? Hospital course, mention meds given and route, prescriptions, significant lab abnormalities, going to OR and other pertinent info. @ -Patient was placed on an insulin drip after insulin bolus and was given 2 L of normal saline and then placed and 200 normal saline per hour. Laboratory indicated the patient was very acidotic second draw on the lab work showed that there was significant improvement patient was feeling better however not back to his baseline yet. Patient will be admitted to Dr. Schwartz Undiagnosed new problem with uncertain prognosis? @ -No Drug Therapy requiring intensive monitoring for toxicity (Heparin, Nitro, Insulin, Cardizem)? @ -No Were any procedures done? @ -No Diagnosis/symptom? @ -Diabetic ketoacidosis Acute, or Chronic, or Acute on Chronic? @ -Acute Uncomplicated (without systemic symptoms) or Complicated (systemic symptoms)? @ -Complicated Side effects of treatment? @ -No Exacerbation, Progression, or Severe Exacerbation? @ -No Poses a threat to life or bodily function? How? (Chest pain, [place], [place], pneumonia, PE, COPD, DKA, ARF, appy, cholecystitis, CVA, Diverticulitis, Homicidal, Suicidal, threat to staff... and all critical care pts) @ -No - Lab Data Result diagrams: 11/19/22 14:22 11/19/22 23:02 Lab Results 11/19/22 11/19/22 11/19/22 Range/Units 14:22 14:22 14:22 WBC 14.7 H (3.8-10.6) k/uL RBC 4.84 (4.30-5.90) m/uL Hgb 14.7 (13.0-17.5) gm/dL Hct 47.8 (39.0-53.0) % MCV 98.7 D (80.0-100.0) fL MCH 30.5 (25.0-35.0) pg MCHC 30.9 L (31.0-37.0) g/dL RDW 13.6 (11.5-15.5) % Plt Count 465 H (150-450) k/uL MPV 8.4 Neutrophils % 84 % Lymphocytes % 13 % Monocytes % 2 % Eosinophils % 0 % Basophils % 0 % Neutrophils # 12.3 H (1.3-7.7) k/uL Lymphocytes # 1.9 (1.0-4.8) k/uL Monocytes # 0.3 (0-1.0) k/uL Eosinophils # 0.0 (0-0.7) k/uL Basophils # 0.1 (0-0.2) k/uL Hypochromasia Marked Sample Site r rad ABG pH 7.18 L* (7.35-7.45) ABG pCO2 <15 L* (35-45) mmHg ABG pO2 144 H (83-108) mmHg ABG O2 Saturation 98.6 H (94-97) % Frank Test Yes VBG pH (7.31-7.41) VBG pCO2 (37-51) mmHg VBG HCO3 (24-28) mmol/L FiO2 21 % Sodium 133 L (137-145) mmol/L Potassium 6.1 H* (3.5-5.1) mmol/L Chloride 90 L (98-107) mmol/L Carbon Dioxide <5 L* (22-30) mmol/L Anion Gap [employer] BUN 30 H (9-20) mg/dL Creatinine 1.14 (0.66-1.25) mg/dL Est GFR (CKD-EPI)AfAm >90 (>60 ml/min/1.73 sqM) Est GFR (CKD-EPI)NonAf 89 (>60 ml/min/1.73 sqM) Glucose 791 H* (74-99) mg/dL POC Glucose (mg/dL) (70-110) mg/dL POC Glu Sample Room Supervisor ID Phosphorus 5.7 H (2.5-4.5) mg/dL Acetone, Qual Positive (Negative) 11/19/22 11/19/22 11/19/22 Range/Units 14:24 14:30 17:17 WBC (3.8-10.6) k/uL RBC (4.30-5.90) m/uL Hgb (13.0-17.5) gm/dL Hct (39.0-53.0) % MCV (80.0-100.0) fL MCH (25.0-35.0) pg MCHC (31.0-37.0) g/dL RDW (11.5-15.5) % Plt Count (150-450) k/uL MPV Neutrophils % % Lymphocytes % % Monocytes % % Eosinophils % % Basophils % % Neutrophils # (1.3-7.7) k/uL Lymphocytes # (1.0-4.8) k/uL Monocytes # (0-1.0) k/uL Eosinophils # (0-0.7) k/uL Basophils # (0-0.2) k/uL Hypochromasia Sample Site ABG pH (7.35-7.45) ABG pCO2 (35-45) mmHg ABG pO2 (83-108) mmHg ABG O2 Saturation (94-97) % Frank Test VBG pH 7.24 L (7.31-7.41) VBG pCO2 20 L (37-51) mmHg VBG HCO3 8 L* (24-28) mmol/L FiO2 % Sodium (137-145) mmol/L Potassium (3.5-5.1) mmol/L Chloride (98-107) mmol/L Carbon Dioxide (22-30) mmol/L Anion Gap BUN (9-20) mg/dL Creatinine (0.66-1.25) mg/dL Est GFR (CKD-EPI)AfAm (>60 ml/min/1.73 sqM) Est GFR (CKD-EPI)NonAf (>60 ml/min/1.73 sqM) Glucose (74-99) mg/dL POC Glucose (mg/dL) >600 H 397 H (70-110) mg/dL POC Glu Sample Room Supervisor ID Estrada, Estella Estrada, Estella Phosphorus (2.5-4.5) mg/dL Acetone, Qual (Negative) 11/19/22 11/19/22 11/19/22 Range/Units 18:13 18:44 19:17 WBC (3.8-10.6) k/uL RBC (4.30-5.90) m/uL Hgb (13.0-17.5) gm/dL Hct (39.0-53.0) % MCV (80.0-100.0) fL MCH (25.0-35.0) pg MCHC (31.0-37.0) g/dL RDW (11.5-15.5) % Plt Count (150-450) k/uL MPV Neutrophils % % Lymphocytes % % Monocytes % % Eosinophils % % Basophils % % Neutrophils # (1.3-7.7) k/uL Lymphocytes # (1.0-4.8) k/uL Monocytes # (0-1.0) k/uL Eosinophils # (0-0.7) k/uL Basophils # (0-0.2) k/uL Hypochromasia Sample Site ABG pH (7.35-7.45) ABG pCO2 (35-45) mmHg ABG pO2 (83-108) mmHg ABG O2 Saturation (94-97) % Frank Test VBG pH (7.31-7.41) VBG pCO2 (37-51) mmHg VBG HCO3 (24-28) mmol/L FiO2 % Sodium 143 (137-145) mmol/L Potassium 5.1 (3.5-5.1) mmol/L Chloride 109 H (98-107) mmol/L Carbon Dioxide 8 L* (22-30) mmol/L Anion Gap 26 BUN 28 H (9-20) mg/dL Creatinine 0.99 (0.66-1.25) mg/dL Est GFR (CKD-EPI)AfAm >90 (>60 ml/min/1.73 sqM) Est GFR (CKD-EPI)NonAf >90 (>60 ml/min/1.73 sqM) Glucose 297 H (74-99) mg/dL POC Glucose (mg/dL) 302 H 213 H (70-110) mg/dL POC Glu Sample Room Supervisor ID Wilver Melendez Jill Phosphorus 2.7 (2.5-4.5) mg/dL Acetone, Qual (Negative) Critical Care Time Critical Care Time: Yes Total Critical Care Time: 35 Disposition Clinical Impression: Diabetic ketoacidosis Disposition: ADMITTED IP TO THIS HOSP
[2022-11-19 14:55] LABS: Basophils # (A) 0.1 k/uL (0-0.2); Basophils % (A) 0 %; Eosinophils % (A) 0 %; HCT 47.8 % (39.0-53.0); HGB 14.7 gm/dL (13.0-17.5); Hypochromasia Marked; Lymphocytes # (A) 1.9 k/uL (1.0-4.8); Lymphocytes % (A) 13 %; MCH 30.5 pg (25.0-35.0); MCHC 30.9 g/dL (31.0-37.0); Mean Platelet Volume 8.4; Monocytes # (A) 0.3 k/uL (0-1.0); Monocytes % (A) 2 %; Neutrophils # (A) 12.3 k/uL (1.3-7.7); Neutrophils % (A) 84 %; Platelet Count 465 k/uL (150-450); RBC 4.84 m/uL (4.30-5.90); RDW 13.6 % (11.5-15.5); WBC 14.7 k/uL (3.8-10.6)
[2022-11-19 14:59] LABS: Allen Test Performed? Yes
[2022-11-19 15:05] LABS: MCV 98.7 fL (80.0-100.0)
[2022-11-19 15:16] LABS: VBG PH 7.24 (7.31-7.41)
[2022-11-19 15:19] LABS: African American GFR (CKD) >90 (>60 ml/min/1.73 sqM); Blood Urea Nitrogen 30 mg/dL (9-20); Chloride 90 mmol/L (98-107); Non-African American GFR(CKD) 89 (>60 ml/min/1.73 sqM); Sodium 133 mmol/L (137-145)
[2022-11-19 15:31] LABS: ABG Oxygen Saturation 98.6 % (94-97); ABG PO2 144 mmHg (83-108)
[2022-11-19 15:33] LABS: ABG PCO2 <15 mmHg (35-45); ABG PH 7.18 (7.35-7.45)
[2022-11-19] MEDS: INSULIN REGULAR 100 UNIT in SODIUM CHLORIDE 0.9% 100 ML IV SCH (15:49)
[2022-11-19 15:50] LABS: Carbon Dioxide <5 mmol/L (22-30)
[2022-11-19 15:51] LABS: Phosphorus 5.7 mg/dL (2.5-4.5)
[2022-11-19 15:53] LABS: Potassium 6.1 mmol/L (3.5-5.1)
[2022-11-19 15:54] LABS: Glucose 791 mg/dL (74-99)
[2022-11-19] MEDS: SODIUM CHLORIDE 0.9% 1,000 ML IV SCH ×3 (16:44→22:44)
[2022-11-19 17:19] LABS: Glucose,Whole Blood 397 mg/dL (70-110)
[2022-11-19 18:15] LABS: Glucose,Whole Blood 302 mg/dL (70-110)
[2022-11-19 19:20] LABS: Glucose,Whole Blood 213 mg/dL (70-110)
[2022-11-19 19:22] LABS: African American GFR (CKD) >90 (>60 ml/min/1.73 sqM); Anion Gap 26 mmol/L; Blood Urea Nitrogen 28 mg/dL (9-20); Chloride 109 mmol/L (98-107); Glucose 297 mg/dL (74-99); Non-African American GFR(CKD) >90 (>60 ml/min/1.73 sqM); Phosphorus 2.7 mg/dL (2.5-4.5); Sodium 143 mmol/L (137-145)
[2022-11-19 19:34] LABS: Carbon Dioxide 8 mmol/L (22-30); Potassium 5.1 mmol/L (3.5-5.1)
[2022-11-19] MEDS ORDERED: ONDANSETRON 4 MG/2 ML VIAL IVP PRN (19:54)
[2022-11-19] MEDS ORDERED: D5-0.45% NACL WITH KCL 20MEQ/L 1,000 ML IV ONE (20:00)
[2022-11-19 20:11] LABS: Glucose,Whole Blood 175 mg/dL (70-110)
[2022-11-19 21:10] LABS: Glucose,Whole Blood 145 mg/dL (70-110)
[2022-11-19 22:06] LABS: Glucose,Whole Blood 130 mg/dL (70-110)
[2022-11-19 23:07] LABS: Glucose,Whole Blood 118 mg/dL (70-110)
[2022-11-19 23:41] LABS: African American GFR (CKD) >90 (>60 ml/min/1.73 sqM); Anion Gap 23 mmol/L; Blood Urea Nitrogen 27 mg/dL (9-20); Carbon Dioxide 12 mmol/L (22-30); Chloride 110 mmol/L (98-107); Glucose 121 mg/dL (74-99); Non-African American GFR(CKD) >90 (>60 ml/min/1.73 sqM); Phosphorus 2.2 mg/dL (2.5-4.5); Potassium 4.4 mmol/L (3.5-5.1); Sodium 145 mmol/L (137-145)
[2022-11-20 00:01] LABS: Glucose,Whole Blood 117 mg/dL (70-110)
[2022-11-20] MEDS: SODIUM CHLORIDE 0.9% 1,000 ML IV SCH ×3 (00:11→13:37)
[2022-11-20 01:11] LABS: Glucose,Whole Blood 153 mg/dL (70-110)
[2022-11-20] MEDS: D5-0.45% NACL WITH KCL 20MEQ/L 1,000 ML IV SCH ×3 (02:13→17:11)
[2022-11-20 03:01] LABS: Glucose,Whole Blood 218 mg/dL (70-110)
[2022-11-20 04:09] LABS: Glucose,Whole Blood 239 mg/dL (70-110)
[2022-11-20] MEDS: INSULIN REGULAR 100 UNIT in SODIUM CHLORIDE 0.9% 100 ML IV SCH (04:16)
[2022-11-20 05:03] LABS: Glucose,Whole Blood 224 mg/dL (70-110)
[2022-11-20 06:01] LABS: Glucose,Whole Blood 214 mg/dL (70-110)
[2022-11-20 07:23] LABS: Glucose,Whole Blood 214 mg/dL (70-110)
[2022-11-20 08:30] LABS: Glucose,Whole Blood 214 mg/dL (70-110)
[2022-11-20 09:15] LABS: Glucose,Whole Blood 191 mg/dL (70-110)
[2022-11-20 09:58] LABS: African American GFR (CKD) >90 (>60 ml/min/1.73 sqM); Anion Gap 14 mmol/L; Blood Urea Nitrogen 21 mg/dL (9-20); Calcium 8.5 mg/dL (8.4-10.2); Carbon Dioxide 18 mmol/L (22-30); Chloride 105 mmol/L (98-107); Glucose 206 mg/dL (74-99); Non-African American GFR(CKD) >90 (>60 ml/min/1.73 sqM); Potassium 4.4 mmol/L (3.5-5.1); Sodium 137 mmol/L (137-145)
[2022-11-20 10:10] LABS: Glucose,Whole Blood 172 mg/dL (70-110)
[2022-11-20 11:26] LABS: Glucose,Whole Blood 168 mg/dL (70-110)
[2022-11-20 12:23] LABS: African American GFR (CKD) >90 (>60 ml/min/1.73 sqM); Anion Gap 9 mmol/L; Blood Urea Nitrogen 20 mg/dL (9-20); Calcium 8.2 mg/dL (8.4-10.2); Carbon Dioxide 22 mmol/L (22-30); Chloride 105 mmol/L (98-107); Glucose 172 mg/dL (74-99); Non-African American GFR(CKD) >90 (>60 ml/min/1.73 sqM); Sodium 136 mmol/L (137-145)
[2022-11-20 13:10] LABS: Glucose,Whole Blood 170 mg/dL (70-110)
[2022-11-20] MEDS: INSULIN DETEMIR (LEVEMIR) 100 UNIT/ML SYR SQ SCH (13:16)
[2022-11-20] MEDS: INSULIN ASPART (NovoLOG) 100 UNIT/ML VIAL SQ SCH ×2 (13:16→17:28)
[2022-11-20] MEDS: GABAPENTIN 300 MG CAP PO SCH ×2 (17:11→21:12)
[2022-11-20 17:16] VITALS: RESP 16
[2022-11-20 17:29] LABS: Glucose,Whole Blood 77 mg/dL (70-110)
[2022-11-20 20:19] LABS: Glucose,Whole Blood 128 mg/dL (70-110)
[2022-11-20] MEDS ORDERED: MIRTAZAPINE 15 MG TAB PO SCH (21:00)
[2022-11-20] MEDS: LITHIUM CARBONATE 150 MG CAP PO SCH (21:12)
[2022-11-21 02:58] LABS: Glucose,Whole Blood 163 mg/dL (70-110)
[2022-11-21 07:41] LABS: Glucose,Whole Blood 209 mg/dL (70-110)
[2022-11-21] MEDS: INSULIN ASPART (NovoLOG) 100 UNIT/ML VIAL SQ SCH ×2 (08:23→13:00)
[2022-11-21] MEDS: GABAPENTIN 300 MG CAP PO SCH (08:23)
[2022-11-21] MEDS: INSULIN DETEMIR (LEVEMIR) 100 UNIT/ML SYR SQ SCH (08:23)
[2022-11-21] MEDS: LITHIUM CARBONATE 150 MG CAP PO SCH (08:24)
[2022-11-21] MEDS ORDERED: LOSARTAN 50 MG TAB PO SCH (09:00)
[2022-11-21] MEDS ORDERED: buPROPion XL 300 MG TAB.ER.24H PO SCH (09:00)
[2022-11-21] MEDS: D5-0.45% NACL WITH KCL 20MEQ/L 1,000 ML IV SCH (10:46)
[2022-11-21 11:01] LABS: Blood Urea Nitrogen 8.1 mg/dL (9.0-27.0); Carbon Dioxide 25.9 mmol/L (21.6-31.8); Chloride 105 mmol/L (96-109); Glucose 176 mg/dL (70-110); Potassium 4.2 mmol/L (3.5-5.5); Sodium 142 mmol/L (135-145)
[2022-11-21 11:52] LABS: Glucose,Whole Blood 170 mg/dL (70-110)
[2022-11-21 13:56] VITALS: BP 117/75; PULSE 103; TEMP 97.5
--- NOTE | 2022-11-22 21:00 | HP ---
HISTORY AND PHYSICAL CHIEF COMPLAINT: DKA. HISTORY OF PRESENT ILLNESS: This is another admission for this young man with DKA. He is in the hospital almost weekly. REVIEW OF SYSTEMS: He is not vomiting. He is lethargic Past medical history, family history, and personal and social histories are unchanged. PHYSICAL EXAMINATION: VITAL SIGNS: Pulse is 118 and blood pressure is 110/55. GENERAL: He is disheveled. SKIN: Color is normal. HEAD, EARS, EYES, NOSE, MOUTH, AND THROAT: Normal. CHEST: Clear. CARDIAC: Normal except for tachycardia. ABDOMEN: Flat and soft. IMPRESSION: 1. Diabetic ketoacidosis. 2. Type 1 insulin-dependent diabetes mellitus. 3. Depression. PLAN: DKA protocol. MMODL / IJN: [id number] /
--- NOTE | 2022-11-22 21:06 | PN ---
PROGRESS NOTE DATE OF SERVICE: 11/20/2022 CHIEF COMPLAINT: DKA. HISTORY OF PRESENT ILLNESS: This gentleman is doing slightly better. He has had no vomiting. PHYSICAL EXAMINATION: CHEST: Clear. CARDIAC: Normal. ABDOMEN: Soft and nontender. IMPRESSION: Diabetic ketoacidosis. PLAN: Continue to monitor. His gap is closing. MMODL / IJN: [id number] /
--- NOTE | 2022-11-22 21:30 | DS ---
DISCHARGE SUMMARY CHIEF COMPLAINT: DKA. HISTORY OF PRESENT ILLNESS AND PHYSICAL EXAMINATION: Details of this man's history and physical can be found in the initial workup. LABORATORY STUDIES: While he was in the hospital, he had laboratory studies, details of which can be found in the laboratory section of his chart. COURSE IN THE HOSPITAL: After admission, he was placed on bedrest, started on intravenous fluids, and started on DKA protocol. He improved and was moved out of ICU, and his gap was closed. He was placed back on his usual home program, doing well, and discharged on the . FINAL DIAGNOSES: 1. Diabetic ketoacidosis. 2. Type 1 insulin-dependent diabetes mellitus. 3. Medical noncompliance. 4. Peripheral neuropathy. 5. Depression. OPERATIONS: None. CONSULTATIONS: ICU Management. CONDITION: He is improved. MMODL / ALDEN: [id number] /
== END 2022-11-21 15:45 | disposition home or self-care (01) | DRG 420 ==
LOC: EC 14:15 → 3SCARD 19:37 → 4SSUR 11-20 13:16 → 5NMEDONC 11-20 13:18
PROVIDERS: ADMIT Family Medicine; ATTEND Family Medicine
DX: E11.00 Type 2 diabetes mellitus with hyperosmolarity without nonketotic hyperglycemic-hyperosmolar coma (NKHHC) (principal); F17.290 Nicotine dependence, other tobacco product, uncomplicated; Z79.4 Long term (current) use of insulin; Z82.49 Family history of ischemic heart disease and other diseases of the circulatory system; Z79.899 Other long term (current) drug therapy
CPT/HCPCS: 36415; 36600; 80048; 80051; 82009; 82565; 82803; 82805; 82947; 84100; 84520; 85025; 93005; 96361; 96365; 96366; 96375; 96376; 99291

== ENCOUNTER 2022-11-29 05:23 | Inpatient (IN) | payer OTHER ==
[2022-11-29] MEDS ORDERED: INSULIN REGULAR BOLUS (FROM DRIP BAG) IV ONE (05:37)
[2022-11-29] MEDS ORDERED: DEXTROSE 50% SYRINGE 50 ML IVP PRN ×2 (05:37)
[2022-11-29] MEDS ORDERED: Potassium Replacement Protocol 1 EACH MISC MISCELLANE PRN (05:37)
[2022-11-29] MEDS ORDERED: Magnesium Replacement Protocol 1 EACH MISC MISCELLANE PRN (05:37)
[2022-11-29 05:38] LABS: Glucose,Whole Blood >600 mg/dL (70-110)
--- NOTE | 2022-11-29 05:42 | ED ---
General Adult HPI - General Chief complaint: Nausea/Vomiting/Diarrhea Stated complaint: nausea, vomiting Time Seen by Provider: 11/29/22 05:34 Source: patient, EMS Mode of arrival: EMS Limitations: no limitations - History of Present Illness Initial comments: Dictation was produced using voxapp dictation software. please excuse any grammatical, word or spelling errors. Chief Complaint: 27-year-old male presents with nausea and vomiting History of Present Illness: 27-year-old male he has past medical history of type 1 diabetes. He is insulin-dependent. He is well-known to emergency department for repeated visitations for diabetic ketoacidosis. Patient allegedly called EMS because he was expressing nonstop vomiting. Patient's a porcine due to his current clinical status Unable to obtain ROS secondary to mental status - Related Data Home Medications Medication Instructions Recorded Confirmed Gabapentin 600 mg PO TID 10/14/22 11/29/22 [place] Carbonate 150 mg PO BID 10/14/22 11/29/22 Losartan [Cozaar] 50 mg PO DAILY 10/14/22 11/29/22 buPROPion XL [Wellbutrin XL] 300 mg PO DAILY 10/14/22 11/29/22 Mirtazapine [Remeron] 15 mg PO HS 10/28/22 11/29/22 INSULIN ASPART (NovoLOG) [NovoLOG 7 unit SQ AC-TID 11/14/22 11/29/22 (formulary)] Previous Rx's Medication Instructions Recorded Insulin Detemir (Levemir) [Levemir] 28 unit SQ DAILY@0700 30 Days #1 10/03/22 each Allergies Allergy/AdvReac Type Severity Reaction Status Date / Time No Known Allergies Allergy Verified 11/29/22 06:39 Review of Systems ROS Statement: Those systems with pertinent positive or pertinent negative responses have been documented in the HPI. ROS Other: All systems not noted in ROS Statement are negative. Past Medical History Past Medical History: Asthma, Diabetes Mellitus, Neurologic Disorder, Skin Disorder Additional Past Medical History / Comment(s): IDDM type I, neuropathy bilateral feet, DKA, eczema. History of Any Multi-Drug Resistant Organisms: None Reported Past Surgical History: Adenoidectomy Additional Past Surgical History / Comment(s): 2003 Recent EGD- gastritis Past Anesthesia/Blood Transfusion Reactions: No Reported Reaction Past Psychological History: Anxiety, Depression Smoking Status: Current every day smoker, Vaper Past Alcohol Use History: None Reported Past Drug Use History: None Reported - Past Family History Mother Family Medical History: CVA/TIA Additional Family Medical History / Comment(s): TIA Father Family Medical History: Hyperlipidemia, Hypertension Additional Family Medical History / Comment(s): . General Exam - General Exam Comments Initial Comments: PHYSICAL EXAM: General Impression: Lethargic, smells of acetone HEENT: Normocephalic atraumatic, extra-ocular movements intact, pupils equal and reactive to light bilaterally, dry mucous membranes Cardiovascular: Heart regular rate and rhythm Chest: [place] respirations Abdomen: abdomen soft, non-tender, non-distended, no organomegaly Musculoskeletal: Pulses present and equal in all extremities, no peripheral edema Motor: no focal deficits noted Neurological: CN II-XII grossly intact, no focal motor or sensory deficits noted Skin: Intact with no visualized rashes Limitations: no limitations Course Vital Signs 11/29/22 05:23 Temperature 97.5 F L Pulse Rate 127 H Respiratory 18 Rate Blood Pressure 107/60 O2 Sat by Pulse 100 Oximetry EKG Findings - EKG Comments: EKG Findings:: My EKG interpretation: Ventricular rate 121, sinus tachycardia,. 155, QRS 97, QTC 395. No [place] prolongation, no QTC prolongation, no ST or T-wave changes noted. EKG compared to 11/19/2022 showing no changes. Overall, this EKG is unremarkable Medical Decision Making - Medical Decision Making Was pt. sent in by a medical professional or institution (, [facility], [facility], urgent care, hospital, or group home...) When possible be specific @ -No Did you speak to anyone other than the patient for history (EMS, parent, family, police, friend...)? What history was obtained from this source @ -No Did you review nursing and triage notes (agree or disagree)? Why? @ -I reviewed and agree with nursing and triage notes Were old charts reviewed (outside hosp., previous admission, EMS record, old EKG, old radiological studies, urgent care reports/EKG's, group home records)? Report findings @ -Chart shows that patient admitted admitted multiple times for diabetic ketoacidosis Differential Diagnosis (chest pain, altered mental status, abdominal pain women, abdominal pain men, vaginal bleeding, musculoskeletal, weakness, fever, dyspnea, syncope, headache, dizziness, GI bleed, back pain, seizure, CVA, palpatations, mental health)? @ -Differential Weakness: Hypoglycemia, shock, sepsis, hyponatremia, anemia, infection, [place], ETOH, adverse medicine reaction, overdose, stroke, this is not meant to be an all-inclusive list. EKG interpreted by me (3pts min.). @ -See above X-rays interpreted by me (1pt min.). @ -None done CT interpreted by me (1pt min.). @ -None done U/S interpreted by me (1pt. min.). @ -None done What testing was considered but not performed or refused? (CT, X-rays, U/S, l abs)? Why? @ -None What meds were considered but not given or refused? Why? @ -None Did you discuss the management of the patient with other professionals (professionals i.e. , PA, [facility], lab, RT, psych nurse, social work professor, jacker, teacher, property and supply officer, rifle case repairer)? Give summary @ -Case discussed with hospitalist and boring mill set up operator vertical for admission Was smoking cessation discussed for >3mins.? @ -No Was critical care preformed (if so, how long)? @ -No Were there social determinants of health that impacted care today? How? (Homelessness, low income, unemployed, alcoholism, drug addiction, transportation, low edu. Level, literacy, decrease access to med. care, intermediate, rehab)? @ -No Was there de-escalation of care discussed even if they declined (Discuss DNR or withdrawal of care, Hospice)? DNR status @ -No What co-morbidities impacted this encounter? (DM, HTN, Smoking, COPD, CAD, Cancer, CVA, ARF, Chemo, Hep., AIDS, mental health diagnosis, sleep apnea, morbid obesity)? @ -None Was patient admitted / discharged? Hospital course, mention meds given and route, prescriptions, significant lab abnormalities, going to OR and other pertinent info. @ -27-year-old male well-known to emergency Department presents to the ER yet again for diabetic ketoacidosis. Vital signs upon arrival shows tachycardia 127, rest of vital signs within acceptable limits. Patient be admitted to the hospital for DKA Undiagnosed new problem with uncertain prognosis? @ -No Drug Therapy requiring intensive monitoring for toxicity (Heparin, Nitro, Insulin, Cardizem)? @ -No Were any procedures done? @ -No Diagnosis/symptom? Acute, or Chronic, or Acute on Chronic? Uncomplicated (without systemic symptoms) or Complicated (systemic symptoms)? @ -1. Diabetic ketoacidosis Side effects of treatment? @ -No Exacerbation, Progression, or Severe Exacerbation? @ -No Poses a threat to life or bodily function? How? (Chest pain, [place], [place], pneumonia, PE, COPD, DKA, ARF, appy, cholecystitis, CVA, Diverticulitis, Homicidal, Suicidal, threat to staff... and all critical care pts) @ -yes - Lab Data Result diagrams: 11/29/22 05:44 11/29/22 05:44 Lab Results 11/29/22 11/29/22 11/29/22 Range/Units 05:32 05:44 05:44 WBC 35.1 H (3.8-10.6) k/uL RBC 4.70 (4.30-5.90) m/uL Hgb 14.2 (13.0-17.5) gm/dL Hct 48.6 (39.0-53.0) % MCV 103.4 H (80.0-100.0) fL MCH 30.3 (25.0-35.0) pg MCHC 29.3 L (31.0-37.0) g/dL RDW 13.5 (11.5-15.5) % Plt Count 352 (150-450) k/uL MPV 8.5 Neutrophils % 87 % Lymphocytes % 9 % Monocytes % 4 % Eosinophils % 0 % Basophils % 0 % Neutrophils # 30.5 H (1.3-7.7) k/uL Lymphocytes # 3.1 (1.0-4.8) k/uL Monocytes # 1.2 H (0-1.0) k/uL Eosinophils # 0.1 (0-0.7) k/uL Basophils # 0.1 (0-0.2) k/uL Manual Slide Review Performed Hypochromasia Marked Macrocytosis Slight Sodium 134 L (137-145) mmol/L Potassium 6.5 H* (3.5-5.1) mmol/L Chloride 93 L (98-107) mmol/L Carbon Dioxide <5 L* (22-30) mmol/L Anion Gap mmol/L BUN 28 H (9-20) mg/dL Creatinine 1.48 H (0.66-1.25) mg/dL Est GFR (CKD-EPI)AfAm 75 (>60 ml/min/1.73 sqM) Est GFR (CKD-EPI)NonAf 65 (>60 ml/min/1.73 sqM) Glucose 787 H* (74-99) mg/dL POC Glucose (mg/dL) >600 H (70-110) mg/dL POC Glu Program Services Planner ID Kemar Delacruz Acetone, Qual Positive (Negative) Disposition Clinical Impression: DKA (diabetic ketoacidosis) Disposition: ADMITTED IP TO THIS [facility] Condition: Critical Decision Time: 07:01
[2022-11-29] MEDS: INSULIN REGULAR 100 UNIT in SODIUM CHLORIDE 0.9% 100 ML IV SCH ×2 (05:50→17:07)
[2022-11-29] MEDS ORDERED: SODIUM CHLORIDE 0.9% 2,000 ML IV ONE (05:55)
[2022-11-29 06:00] LABS: Basophils # (A) 0.1 k/uL (0-0.2); Basophils % (A) 0 %; Eosinophils # (A) 0.1 k/uL (0-0.7); Eosinophils % (A) 0 %; HCT 48.6 % (39.0-53.0); HGB 14.2 gm/dL (13.0-17.5); Hypochromasia Marked; Lymphocytes # (A) 3.1 k/uL (1.0-4.8); Lymphocytes % (A) 9 %; MCH 30.3 pg (25.0-35.0); MCHC 29.3 g/dL (31.0-37.0); MCV 103.4 fL (80.0-100.0); Macrocytosis Slight; Mean Platelet Volume 8.5; Monocytes # (A) 1.2 k/uL (0-1.0); Monocytes % (A) 4 %; Neutrophils # (A) 30.5 k/uL (1.3-7.7); Neutrophils % (A) 87 %; Platelet Count 352 k/uL (150-450); RDW 13.5 % (11.5-15.5); WBC 35.1 k/uL (3.8-10.6)
[2022-11-29 06:05] LABS: African American GFR (CKD) 75 (>60 ml/min/1.73 sqM); Blood Urea Nitrogen 28 mg/dL (9-20); Chloride 93 mmol/L (98-107); Non-African American GFR(CKD) 65 (>60 ml/min/1.73 sqM); Sodium 134 mmol/L (137-145)
[2022-11-29 06:19] LABS: Glucose 787 mg/dL (74-99)
[2022-11-29 06:20] LABS: Carbon Dioxide <5 mmol/L (22-30); Potassium 6.5 mmol/L (3.5-5.1)
[2022-11-29] MEDS ORDERED: NALOXONE 0.4 MG/ML 1 ML VIAL IV PRN (06:38)
[2022-11-29] MEDS: SODIUM CHLORIDE 0.9% 1,000 ML IV SCH ×4 (06:46→20:52)
[2022-11-29 07:04] LABS: Glucose,Whole Blood 553 mg/dL (70-110)
[2022-11-29 07:26] LABS: VBG PH 7.06 (7.31-7.41)
[2022-11-29 08:02] LABS: Glucose,Whole Blood 433 mg/dL (70-110)
[2022-11-29 08:27] LABS: African American GFR (CKD) >90 (>60 ml/min/1.73 sqM); Blood Urea Nitrogen 27 mg/dL (9-20); Chloride 107 mmol/L (98-107); Glucose 452 mg/dL (74-99); Non-African American GFR(CKD) 82 (>60 ml/min/1.73 sqM); Potassium 4.8 mmol/L (3.5-5.1); Sodium 143 mmol/L (137-145)
[2022-11-29 08:41] LABS: Carbon Dioxide <5 mmol/L (22-30)
[2022-11-29 09:02] LABS: Glucose,Whole Blood 319 mg/dL (70-110)
[2022-11-29 09:34] LABS: Glucose,Whole Blood 251 mg/dL (70-110)
[2022-11-29] MEDS: D5-0.45% NACL WITH KCL 20MEQ/L 1,000 ML IV SCH ×3 (09:52→23:40)
[2022-11-29 10:09] LABS: Glucose,Whole Blood 223 mg/dL (70-110)
[2022-11-29 11:05] LABS: Glucose,Whole Blood 233 mg/dL (70-110)
[2022-11-29 12:05] LABS: Glucose,Whole Blood 187 mg/dL (70-110)
--- NOTE | 2022-11-29 12:15 | P.CNPUL ---
History of Present Illness Consult date: 11/29/22 Requesting physician: Brown Valenzuela Reason for consult: other (ICU management) Chief complaint: Nausea, vomiting History of present illness: This is a 27-year-old male patient with a known history of type 1 diabetes mellitus, poorly compliant, diabetic neuropathy, anxiety/depression, chronic and ongoing tobacco dependence, sleeping. He presented here to the emergency room again early this morning for nonstop vomiting. White count 35.1. Hemoglobin 14.2. Platelets 352. Sodium 143. Potassium 4.8. Bicarb less than 5. Unable to calculate anion gap. BUN 27. Creatinine 1.23. Presenting glucose 787. Currently for 452. Acetone positive. He is currently in the DKA protocol. He is on a insulin drip at 9 units per hour. Normal saline at 200 ML's per hour. He is seen today in the emergency department. He is arousable but drifts off easily. Not answering any questions. Maintaining O2 saturations up to 100% on room air. Afebrile. Blood pressure stable. He is in sinus tachycardia with a rate in the 110 to 120s. Review of Systems ROS unobtainable: due to mental status Past Medical History Past Medical History: Asthma, Diabetes Mellitus, Neurologic Disorder, Skin Disorder Additional Past Medical History / Comment(s): IDDM type I, neuropathy bilateral feet, DKA, eczema. History of Any Multi-Drug Resistant Organisms: None Reported Past Surgical History: Adenoidectomy Additional Past Surgical History / Comment(s): 2002 Recent EGD- gastritis Past Anesthesia/Blood Transfusion Reactions: No Reported Reaction Past Psychological History: Anxiety, Depression Smoking Status: Current every day smoker, Vaper Past Alcohol Use History: None Reported Past Drug Use History: None Reported - Past Family History Mother Family Medical History: CVA/TIA Additional Family Medical History / Comment(s): TIA Father Family Medical History: Hyperlipidemia, Hypertension Additional Family Medical History / Comment(s): . Medications and Allergies Home Medications Medication Instructions Recorded Confirmed Type Insulin Detemir (Levemir) [Levemir] 28 unit SQ DAILY@0700 30 Days #1 10/03/22 11/29/22 Rx each Gabapentin 600 mg PO TID 10/14/22 11/29/22 History [place] Carbonate 150 mg PO BID 10/14/22 11/29/22 History Losartan [Cozaar] 50 mg PO DAILY 10/14/22 11/29/22 History buPROPion XL [Wellbutrin XL] 300 mg PO DAILY 10/14/22 11/29/22 History Mirtazapine [Remeron] 15 mg PO HS 10/28/22 11/29/22 History INSULIN ASPART (NovoLOG) [NovoLOG 7 unit SQ AC-TID 11/14/22 11/29/22 History (formulary)] Allergies Allergy/AdvReac Type Severity Reaction Status Date / Time No Known Allergies Allergy Verified 11/29/22 06:39 Physical Exam Vitals: Vital Signs Temp Pulse Resp BP Pulse Ox 11/29/22 11:00 116 H 104/74 11/29/22 08:25 114 H 18 96/63 11/29/22 07:34 123 H 18 107/60 11/29/22 05:23 97.5 F L 127 H 18 107/60 100 Intake and Output 11/28/22 11/29/22 11/29/22 22:59 06:59 14:59 Intake Total 27.867 Balance 27.867 Intake: Intake, IV Titration 27.867 Amount Insulin Regular 100 unit 27.867 In Sodium Chloride 0.9% 100 ml @ 0.1 UNITS/KG/HR 7.33 mls/hr IV .[id number] [facility] Rx#:[id number] Other: Weight 72.575 kg GENERAL EXAM: Arousable, thin, 27-year-old male, on room air, fairly comfortable in no apparent distress. HEAD: Normocephalic. EYES: Normal reaction of pupils, equal size. NOSE: Clear with pink turbinates. THROAT: No erythema or exudates. NECK: No masses, no JVD. CHEST: No chest wall deformity. LUNGS: Equal air entry with no crackles, wheeze, rhonchi or dullness. CVS: S1 and S2 normal with no audible murmur, regular rhythm. ABDOMEN: No hepatosplenomegaly, normal bowel sounds, no guarding or rigidity. SPINE: No scoliosis or deformity SKIN: No rashes CENTRAL NERVOUS SYSTEM: No focal deficits, tone is normal in all 4 extremities. EXTREMITIES: There is no peripheral edema. No clubbing, no cyanosis. Peripheral pulses are intact. Results - Laboratory Findings CBC and BMP: 11/29/22 05:44 11/29/22 07:52 Abnormal lab findings: Abnormal Labs 11/29/22 11/29/22 11/29/22 05:32 05:44 05:44 WBC 35.1 H MCV 103.4 H MCHC 29.3 L Neutrophils # 30.5 H Monocytes # 1.2 H VBG pH VBG pCO2 VBG HCO3 Sodium 134 L Potassium 6.5 H* Chloride 93 L Carbon Dioxide <5 L* BUN 28 H Creatinine 1.48 H Glucose 787 H* POC Glucose (mg/dL) >600 H Phosphorus 11/29/22 11/29/22 11/29/22 06:07 06:58 07:52 WBC MCV MCHC Neutrophils # Monocytes # VBG pH 7.06 L* VBG pCO2 20 L VBG HCO3 6 L* Sodium Potassium Chloride Carbon Dioxide BUN Creatinine Glucose POC Glucose (mg/dL) 553 H Phosphorus 6.0 H 11/29/22 11/29/22 11/29/22 07:52 08:00 09:00 WBC MCV MCHC Neutrophils # Monocytes # VBG pH VBG pCO2 VBG HCO3 Sodium Potassium Chloride Carbon Dioxide <5 L* BUN 27 H Creatinine Glucose 452 H POC Glucose (mg/dL) 433 H 319 H Phosphorus 11/29/22 11/29/22 11/29/22 09:30 10:07 11:03 WBC MCV MCHC Neutrophils # Monocytes # VBG pH VBG pCO2 VBG HCO3 Sodium Potassium Chloride Carbon Dioxide BUN Creatinine Glucose POC Glucose (mg/dL) 251 H 223 H 233 H Phosphorus Assessment and Plan Assessment: Acute diabetic ketoacidosis secondary to noncompliance and the patient has had multiple and ongoing issues with DKA and repeated hospitalizations. Discharged home on 11/21/2022 Anion gap metabolic acidosis secondary to DKA and new Acute kidney injury secondary to above Leukocytosis secondary to above Acute kidney injury, improving with fluid resuscitation Hyperkalemia, improving Diabetes mellitus, type I, poor compliance, poor control Diabetic neuropathy Chronic and ongoing tobacco dependence History of vaping History of depression with previous suicide attempts History of anxiety Marijuana use Plan: The patient was seen and evaluated Labs and medications reviewed Continue on the DKA protocol Community insulin drip Correct electrolyte imbalances Continue with fluid resuscitation Once his gap is closed may be downgraded to the regular medical floor Social work consult regarding frequent multiple readmissions We'll continue to follow and make further recommendations based on his clinical status I have personally seen and examined the patient, performed the documentation and the assessment and plan as written. Number of minutes spent on the visit: 20.
[2022-11-29] MEDS: INSULIN ASPART (NovoLOG) 100 UNIT/ML VIAL SQ SCH ×2 (12:31→17:05)
[2022-11-29 12:44] LABS: African American GFR (CKD) >90 (>60 ml/min/1.73 sqM); Anion Gap 16 mmol/L; Blood Urea Nitrogen 25 mg/dL (9-20); Carbon Dioxide 14 mmol/L (22-30); Chloride 112 mmol/L (98-107); Glucose 188 mg/dL (74-99); Non-African American GFR(CKD) >90 (>60 ml/min/1.73 sqM); Potassium 4.7 mmol/L (3.5-5.1); Sodium 142 mmol/L (137-145)
[2022-11-29 13:00] LABS: Lithium <0.2 mmol/L
[2022-11-29 13:07] LABS: Glucose,Whole Blood 176 mg/dL (70-110)
[2022-11-29 14:09] LABS: Glucose,Whole Blood 161 mg/dL (70-110)
[2022-11-29 15:08] LABS: Glucose,Whole Blood 155 mg/dL (70-110)
[2022-11-29] MEDS: GABAPENTIN 300 MG CAP PO SCH ×2 (15:08→20:43)
[2022-11-29 16:19] LABS: Glucose,Whole Blood 127 mg/dL (70-110)
[2022-11-29 17:11] LABS: Glucose,Whole Blood 121 mg/dL (70-110)
[2022-11-29 17:17] LABS: African American GFR (CKD) >90 (>60 ml/min/1.73 sqM); Anion Gap 13 mmol/L; Blood Urea Nitrogen 22 mg/dL (9-20); Carbon Dioxide 17 mmol/L (22-30); Chloride 110 mmol/L (98-107); Glucose 126 mg/dL (74-99); Non-African American GFR(CKD) >90 (>60 ml/min/1.73 sqM); Potassium 4.2 mmol/L (3.5-5.1); Sodium 140 mmol/L (137-145)
[2022-11-29 18:17] LABS: Glucose,Whole Blood 127 mg/dL (70-110)
[2022-11-29 18:59] LABS: Glucose,Whole Blood 133 mg/dL (70-110)
[2022-11-29] MEDS ORDERED: ONDANSETRON 4 MG/2 ML VIAL IVP PRN (20:02)
[2022-11-29 20:04] LABS: Glucose,Whole Blood 171 mg/dL (70-110)
[2022-11-29] MEDS: LITHIUM CARBONATE 150 MG CAP PO SCH (20:44)
[2022-11-29 20:51] LABS: African American GFR (CKD) >90 (>60 ml/min/1.73 sqM); Anion Gap 14 mmol/L; Blood Urea Nitrogen 21 mg/dL (9-20); Carbon Dioxide 16 mmol/L (22-30); Chloride 108 mmol/L (98-107); Glucose 217 mg/dL (74-99); Non-African American GFR(CKD) >90 (>60 ml/min/1.73 sqM); Phosphorus 3.2 mg/dL (2.5-4.5); Potassium 4.6 mmol/L (3.5-5.1); Sodium 138 mmol/L (137-145)
[2022-11-29] MEDS ORDERED: MIRTAZAPINE 15 MG TAB PO SCH (21:00)
[2022-11-29 21:21] LABS: Glucose,Whole Blood 264 mg/dL (70-110)
[2022-11-29 22:04] LABS: Glucose,Whole Blood 266 mg/dL (70-110)
[2022-11-29 23:04] LABS: Glucose,Whole Blood 227 mg/dL (70-110)
[2022-11-30 00:07] LABS: Glucose,Whole Blood 211 mg/dL (70-110)
[2022-11-30 01:05] LABS: Glucose,Whole Blood 186 mg/dL (70-110)
[2022-11-30 01:18] LABS: African American GFR (CKD) >90 (>60 ml/min/1.73 sqM); Anion Gap 10 mmol/L; Blood Urea Nitrogen 19 mg/dL (9-20); Carbon Dioxide 19 mmol/L (22-30); Chloride 108 mmol/L (98-107); Glucose 203 mg/dL (74-99); Non-African American GFR(CKD) >90 (>60 ml/min/1.73 sqM); Phosphorus 2.6 mg/dL (2.5-4.5); Potassium 4.3 mmol/L (3.5-5.1); Sodium 137 mmol/L (137-145)
[2022-11-30] MEDS: SODIUM CHLORIDE 0.9% 1,000 ML IV SCH ×3 (02:09→13:57)
[2022-11-30 02:10] LABS: Glucose,Whole Blood 191 mg/dL (70-110)
[2022-11-30 03:06] LABS: Glucose,Whole Blood 174 mg/dL (70-110)
[2022-11-30 04:03] LABS: Glucose,Whole Blood 184 mg/dL (70-110)
[2022-11-30 05:07] LABS: Glucose,Whole Blood 164 mg/dL (70-110)
[2022-11-30] MEDS: D5-0.45% NACL WITH KCL 20MEQ/L 1,000 ML IV SCH (05:55)
[2022-11-30 06:03] LABS: Glucose,Whole Blood 148 mg/dL (70-110)
[2022-11-30 06:31] LABS: Glucose,Whole Blood 147 mg/dL (70-110)
[2022-11-30] MEDS ORDERED: INSULIN DETEMIR (LEVEMIR) 100 UNIT/ML SYR SQ SCH (07:00)
[2022-11-30 07:36] LABS: Glucose,Whole Blood 228 mg/dL (70-110)
[2022-11-30 08:12] VITALS: TEMP 97.8
[2022-11-30] MEDS: INSULIN ASPART (NovoLOG) 100 UNIT/ML VIAL SQ SCH ×2 (08:13→13:57)
[2022-11-30] MEDS: LITHIUM CARBONATE 150 MG CAP PO SCH (08:13)
[2022-11-30] MEDS: GABAPENTIN 300 MG CAP PO SCH ×2 (08:14→16:07)
[2022-11-30] MEDS ORDERED: buPROPion XL 300 MG TAB.ER.24H PO SCH (09:00)
[2022-11-30] MEDS ORDERED: LOSARTAN 50 MG TAB PO SCH (09:00)
[2022-11-30] MEDS: INSULIN REGULAR 100 UNIT in SODIUM CHLORIDE 0.9% 100 ML IV SCH (10:52)
--- NOTE | 2022-11-30 11:10 | P.PN ---
Subjective Progress Note Date: 11/30/22 Principal diagnosis: Diabetic ketoacidosis. This is a 27-year-old male patient with a known history of type 1 diabetes mellitus, poorly compliant, diabetic neuropathy, anxiety/depression, chronic and ongoing tobacco dependence, sleeping. He presented here to the emergency room again early this morning for nonstop vomiting. White count 35.1. Hemoglobin 14.2. Platelets 352. Sodium 143. Potassium 4.8. Bicarb less than 5. Unable to calculate anion gap. BUN 27. Creatinine 1.23. Presenting glucose 787. Currently for 452. Acetone positive. He is currently in the DKA protocol. He is on a insulin drip at 9 units per hour. Normal saline at 200 ML's per hour. He is seen today in the emergency department. He is arousable but drifts off easily. Not answering any questions. Maintaining O2 saturations up to 100% on room air. Afebrile. Blood pressure stable. He is in sinus tachycardia with a rate in the 110 to 120s. Progress note dated 11/30/2022. 27-year-old male with history of type 1 diabetes, admissions to the hospital for diabetic ketoacidosis. He was seen yesterday in the emergency department. The patient's doing much better. Currently, the patient is on room air. Getting D5 half-normal saline at 50 mL an hour. Current laboratory data includes a sodium 137, potassium 4.3, chlorides 108, CO2 19, anion gap 10, BUN 19, creatinine 0.66. The glucose is 203. Objective - Vital Signs Vital signs: Vital Signs Temp 97.8 F 11/30/22 08:08 Pulse 114 H 11/30/22 09:48 Resp 16 11/30/22 09:48 BP 98/62 11/30/22 08:08 Pulse Ox 97 11/30/22 08:08 FiO2 Intake & Output 11/29/22 11/30/22 11/30/22 18:59 06:59 18:59 Intake Total 85.523 817.266 237 Output Total 1075 1125 Balance -989.477 -307.734 237 Weight 72.575 kg 72.575 kg Intake: Intake, IV Titration 85.523 22.266 Amount Insulin Regular 100 unit 85.523 22.266 In Sodium Chloride 0.9% 100 ml @ 0.1 UNITS/KG/HR 7.33 mls/hr IV .[id number] [facility] Rx#:[id number] Oral 795 237 Output: Urine 1075 625 Emesis 500 Other: Voiding Method Toilet Toilet - Exam No acute distress, oriented 3. Currently on room air. HEENT examination is grossly unremarkable. Neck supple. Full range of motion. No adenopathy thyromegaly or neck vein distention. Cardiovascular examination reveals regular rhythm rate. S1-S2 normal. No S3 or S4. No discernible murmur noted. Heart rate 114 bpm. Lungs reveal clear breath sounds. Breath sounds are equal bilaterally. No adventitious lung sounds including wheezes rhonchi or crackles. Room air saturation is 97%. Abdomen soft bowel sounds are heard. No masses or tenderness. Extremities are intact. No cyanosis clubbing or edema. Skin is without rash or lesion. Neurologic examination is brief but nonfocal. - Labs CBC & Chem 7: 11/29/22 05:44 11/30/22 00:04 Labs: Abnormal Lab Results - Last 24 Hours (Table) 11/29/22 11/29/22 11/29/22 Range/Units 11:03 12:03 12:14 Chloride 112 H (98-107) mmol/L Carbon Dioxide 14 L (22-30) mmol/L BUN 25 H (9-20) mg/dL Glucose 188 H (74-99) mg/dL POC Glucose (mg/dL) 233 H 187 H (70-110) mg/dL 11/29/22 11/29/22 11/29/22 Range/Units 13:06 14:07 15:07 Chloride (98-107) mmol/L Carbon Dioxide (22-30) mmol/L BUN (9-20) mg/dL Glucose (74-99) mg/dL POC Glucose (mg/dL) 176 H 161 H 155 H (70-110) mg/dL 11/29/22 11/29/22 11/29/22 Range/Units 16:18 16:44 17:10 Chloride 110 H (98-107) mmol/L Carbon Dioxide 17 L (22-30) mmol/L BUN 22 H (9-20) mg/dL Glucose 126 H (74-99) mg/dL POC Glucose (mg/dL) 127 H 121 H (70-110) mg/dL 11/29/22 11/29/22 11/29/22 Range/Units 18:15 18:57 20:02 Chloride (98-107) mmol/L Carbon Dioxide (22-30) mmol/L BUN (9-20) mg/dL Glucose (74-99) mg/dL POC Glucose (mg/dL) 127 H 133 H 171 H (70-110) mg/dL 11/29/22 11/29/22 11/29/22 Range/Units 20:25 21:19 22:02 Chloride 108 H (98-107) mmol/L Carbon Dioxide 16 L (22-30) mmol/L BUN 21 H (9-20) mg/dL Glucose 217 H (74-99) mg/dL POC Glucose (mg/dL) 264 H 266 H (70-110) mg/dL 11/29/22 11/30/22 11/30/22 Range/Units 23:02 00:04 00:06 Chloride 108 H (98-107) mmol/L Carbon Dioxide 19 L (22-30) mmol/L BUN (9-20) mg/dL Glucose 203 H (74-99) mg/dL POC Glucose (mg/dL) 227 H 211 H (70-110) mg/dL 11/30/22 11/30/22 11/30/22 Range/Units 01:02 02:08 03:05 Chloride (98-107) mmol/L Carbon Dioxide (22-30) mmol/L BUN (9-20) mg/dL Glucose (74-99) mg/dL POC Glucose (mg/dL) 186 H 191 H 174 H (70-110) mg/dL 11/30/22 11/30/22 11/30/22 Range/Units 04:00 05:05 06:00 Chloride (98-107) mmol/L Carbon Dioxide (22-30) mmol/L BUN (9-20) mg/dL Glucose (74-99) mg/dL POC Glucose (mg/dL) 184 H 164 H 148 H (70-110) mg/dL 11/30/22 11/30/22 Range/Units 06:29 07:34 Chloride (98-107) mmol/L Carbon Dioxide (22-30) mmol/L BUN (9-20) mg/dL Glucose (74-99) mg/dL POC Glucose (mg/dL) 147 H 228 H (70-110) mg/dL Assessment and Plan Assessment: Acute diabetic ketoacidosis secondary to noncompliance and the patient has had multiple and ongoing issues with DKA and repeated hospitalizations. Discharged home on 11/21/2022. Anion gap metabolic acidosis secondary to DKA. Acute kidney injury. Leukocytosis. Hyperkalemia. Diabetes mellitus, type I, poor compliance, poor control. Diabetic neuropathy. Chronic and ongoing tobacco dependence. History of vaping. History of depression with previous suicide attempts. History of anxiety. Marijuana use. Plan: Plan dated 11/30/2022. The patient is seen today in room 354. The patient was seen yesterday in the emergency department. He has multiple admissions to this hospital for diabetic ketoacidosis. The patient really does not take very good care of himself. After today, we will see the patient only as needed moving forward. I'm sure we'll see him again, with another episode of diabetic ketoacidosis. Prognosis is extremely poor. Time with Patient: Less than 30
[2022-11-30 11:32] LABS: Glucose,Whole Blood 114 mg/dL (70-110)
[2022-11-30 11:55] VITALS: RESP 18
[2022-11-30 16:06] VITALS: BP 111/74; PULSE 102
--- NOTE | 2022-11-30 22:36 | DS ---
DISCHARGE SUMMARY CHIEF COMPLAINT: DKA. HISTORY OF PRESENT ILLNESS AND PHYSICAL EXAMINATION: Details of this man's history and physical can be found in the initial workup. COURSE IN THE HOSPITAL: After admission, he was placed on bedrest and started on DKA protocol. Blood sugars came down and numbers improved. He was nauseated and vomiting, but this was corrected. He was eating and doing well. Blood sugars are under control. It was felt he could go home on the . He will go home on his usual activity, diet, and medications and will be followed up in the office. FINAL DIAGNOSES: 1. Diabetic ketoacidosis. 2. Depression. 3. Gastroparesis. 4. Diabetic neuropathy. OPERATIONS: None. CONSULTATIONS: None. He is improved. MMODL / IJN: [id number] /
--- NOTE | 2022-11-30 23:00 | HP ---
HISTORY AND PHYSICAL CHIEF COMPLAINT: Diabetic ketoacidosis. HISTORY OF PRESENT ILLNESS: This is another admission for this 27-year-old white male who is in the hospital almost a week now. He lives home, does not take his insulin and comes in with diabetic ketoacidosis. In the emergency room with a blood sugar 787. White count 35,000, pH was 7.06 with a bicarb less than 5 and potassium 6.5. REVIEW OF SYSTEMS: He was lethargic. The remainder of his history including past medical history, family history, personal and social histories are all unchanged from his admitting and discharge summary for last several weeks. PHYSICAL EXAMINATION: VITAL SIGNS: Blood pressure is 98/55 with a pulse of 110, respirations of 40, and he is afebrile. GENERAL: He appeared to be dehydrated and lethargic. SKIN: Dry. HEENT: Head, ears, eyes, nose, mouth and throat were normal except for dry mucous membranes. NECK: Supple. CHEST: Clear. CARDIAC: Normal except for tachycardia. ABDOMEN: Flat, soft, nontender. EXTREMITIES: Normal. Muscle bulk with diminished. NEUROLOGICAL: Lethargic, smooth. HOSPITAL DIAGNOSES: 1. Diabetic ketoacidosis. 2. Diabetic neuropathy. 3. History of gastroparesis. 4. Depression. 5. Dehydration. 6. Metabolic acidosis. PLAN: Admit and treat with DKA protocol. MMSHANEL / ALDEN: [id number] /
== END 2022-11-30 16:20 | disposition home or self-care (01) | DRG 420 ==
LOC: EC 05:23 → 2SICU 06:38 → 3SCARD 20:14
PROVIDERS: ADMIT Family Medicine; ATTEND Family Medicine
DX: E10.10 Type 1 diabetes mellitus with ketoacidosis without coma (principal); N17.9 Acute kidney failure, unspecified; E10.43 Type 1 diabetes mellitus with diabetic autonomic (poly)neuropathy; E10.42 Type 1 diabetes mellitus with diabetic polyneuropathy; F32.A Depression, unspecified; K31.84 Gastroparesis; F41.9 Anxiety disorder, unspecified; F17.290 Nicotine dependence, other tobacco product, uncomplicated; E87.5 Hyperkalemia; E86.0 Dehydration; Z79.4 Long term (current) use of insulin; Z79.899 Other long term (current) drug therapy; Z87.19 Personal history of other diseases of the digestive system; Z91.199 Patient's noncompliance with other medical treatment and regimen due to unspecified reason; Z91.51 Personal history of suicidal behavior; Z28.310 Unvaccinated for COVID-19
CPT/HCPCS: 36415; 80051; 80178; 82009; 82565; 82803; 82947; 84100; 84520; 85025; 93005; 96361; 96374; 96376; 99285

== ENCOUNTER 2022-12-02 08:27 | Inpatient (IN) | payer OTHER ==
[2022-12-02] MEDS ORDERED: SODIUM CHLORIDE 0.9% 2,000 ML IV STA (08:30)
[2022-12-02] MEDS ORDERED: METOCLOPRAMIDE 5 MG/ML 2 ML VIAL IVP STA (08:32)
[2022-12-02] MEDS ORDERED: diphenhydrAMINE 50 MG/ML 1 ML VIAL IVP STA (08:32)
[2022-12-02 08:44] LABS: Glucose,Whole Blood >600 mg/dL (70-110)
[2022-12-02] MEDS ORDERED: INSULIN REGULAR 100 UNIT in SODIUM CHLORIDE 0.9% 100 ML IV SCH (08:45)
[2022-12-02 08:52] LABS: VBG PH 7.38 (7.31-7.41)
[2022-12-02 08:57] LABS: Basophils % (A) 0 %; Eosinophils # (A) 0.1 k/uL (0-0.7); Eosinophils % (A) 1 %; HCT 43.5 % (39.0-53.0); Hypochromasia Moderate; Lymphocytes # (A) 1.7 k/uL (1.0-4.8); Lymphocytes % (A) 25 %; MCH 29.3 pg (25.0-35.0); MCHC 29.8 g/dL (31.0-37.0); MCV 98.5 fL (80.0-100.0); Mean Platelet Volume 7.6; Monocytes # (A) 0.3 k/uL (0-1.0); Monocytes % (A) 4 %; Neutrophils # (A) 4.6 k/uL (1.3-7.7); Neutrophils % (A) 69 %; Platelet Count 379 k/uL (150-450); RBC 4.42 m/uL (4.30-5.90); RDW 13.7 % (11.5-15.5); WBC 6.7 k/uL (3.8-10.6)
[2022-12-02 08:58] LABS: ALT 25 U/L (4-49); AST 23 U/L (17-59); African American GFR (CKD) >90 (>60 ml/min/1.73 sqM); Albumin 4.6 g/dL (3.5-5.0); Alkaline Phosphatase 120 U/L (38-126); Anion Gap 35 mmol/L; Blood Urea Nitrogen 20 mg/dL (9-20); Calcium 9.5 mg/dL (8.4-10.2); Chloride 95 mmol/L (98-107); Lipase 422 U/L (23-300); Non-African American GFR(CKD) >90 (>60 ml/min/1.73 sqM); Potassium 4.9 mmol/L (3.5-5.1); Sodium 138 mmol/L (137-145); Total Bilirubin 0.8 mg/dL (0.2-1.3); Total Protein 6.9 g/dL (6.3-8.2)
[2022-12-02] MEDS: SODIUM CHLORIDE 0.9% 1,000 ML IV SCH ×5 (08:58→20:48)
[2022-12-02 09:18] LABS: Carbon Dioxide 8 mmol/L (22-30); Glucose 753 mg/dL (74-99)
[2022-12-02 10:20] LABS: Glucose,Whole Blood 597 mg/dL (70-110)
--- NOTE | 2022-12-02 10:22 | ED ---
Nausea/Vomiting/Diarrhea HPI - General Chief complaint: Nausea/Vomiting/Diarrhea Stated complaint: Hyperglycemia Time Seen by Provider: 12/02/22 08:30 Source: patient, EMS, RN notes reviewed Mode of arrival: EMS Limitations: no limitations - History of Present Illness Initial comments: This a 27-year-old male well-known the emergency department presents today with chief complaint of nausea vomiting hyperglycemia. Patient was brought in by EMS he received Zofran by EMS prior arrival. Patient states he has not checked his blood sugar of recent, has not taken any insulin. Patient's had persistent nausea and vomiting. Patient had recent hospitalization and discharge DKA. Patient had multiple hospitalizations for similar reasons. He does complain of diffuse abdominal pain no reported fever. No complaints of chest pain. - Related Data Home Medications Medication Instructions Recorded Confirmed Gabapentin 600 mg PO TID 10/14/22 11/29/22 [place] Carbonate 150 mg PO BID 10/14/22 11/29/22 Losartan [Cozaar] 50 mg PO DAILY 10/14/22 11/29/22 buPROPion XL [Wellbutrin XL] 300 mg PO DAILY 10/14/22 11/29/22 Mirtazapine [Remeron] 15 mg PO HS 10/28/22 11/29/22 INSULIN ASPART (NovoLOG) [NovoLOG 7 unit SQ AC-TID 11/14/22 11/29/22 (formulary)] Previous Rx's Medication Instructions Recorded Insulin Detemir (Levemir) [Levemir] 28 unit SQ DAILY@0700 30 Days #1 10/03/22 each Allergies Allergy/AdvReac Type Severity Reaction Status Date / Time No Known Allergies Allergy Verified 12/02/22 08:33 Review of Systems ROS Statement: Those systems with pertinent positive or pertinent negative responses have been documented in the HPI. ROS Other: All systems not noted in ROS Statement are negative. Past Medical History Past Medical History: Asthma, Diabetes Mellitus, Neurologic Disorder, Skin Disorder Additional Past Medical History / Comment(s): IDDM type I, neuropathy bilateral feet, DKA, eczema. History of Any Multi-Drug Resistant Organisms: None Reported Past Surgical History: Adenoidectomy Additional Past Surgical History / Comment(s): 2002 Recent EGD- gastritis Past Anesthesia/Blood Transfusion Reactions: No Reported Reaction Past Psychological History: Anxiety, Depression Smoking Status: Current every day smoker, Vaper Past Alcohol Use History: None Reported Past Drug Use History: None Reported - Past Family History Mother Family Medical History: CVA/TIA Additional Family Medical History / Comment(s): TIA Father Family Medical History: Hyperlipidemia, Hypertension Additional Family Medical History / Comment(s): . General Exam Limitations: no limitations General appearance: alert, in no apparent distress Head exam: Present: atraumatic, normocephalic, normal inspection Eye exam: Present: normal appearance, PERRL, EOMI. Absent: scleral icterus, conjunctival injection, periorbital swelling Respiratory exam: Present: normal lung sounds bilaterally, respiratory distress. Absent: wheezes, rales, rhonchi, stridor Cardiovascular Exam: Present: normal rhythm, tachycardia, normal heart sounds. Absent: systolic murmur, diastolic murmur, rubs, gallop, clicks GI/Abdominal exam: Present: soft, tenderness, normal bowel sounds. Absent: distended, guarding, rebound, rigid Neurological exam: Present: alert, oriented X3 Course Vital Signs 12/02/22 08:31 Temperature 98.0 F Pulse Rate 135 H Respiratory 18 Rate Blood Pressure 116/83 O2 Sat by Pulse 99 Oximetry Medical Decision Making - Medical Decision Making Was pt. sent in by a medical professional or institution (, PA, X RAY PHYSICIAN, urgent care, hospital, or [place] health care facility...) When possible be specific @ -No Did you speak to anyone other than the patient for history (EMS, parent, family, police, friend...)? What history was obtained from this source @ -EMS regarding prehospital treatment, vitals complaint Did you review nursing and triage notes (agree or disagree)? Why? @ -I reviewed and agree with nursing and triage notes Were old charts reviewed (outside hosp., previous admission, EMS record, old EKG, old radiological studies, urgent care reports/EKG's, [place] health care facility records)? Report findings @ -No old charts were reviewed Differential Diagnosis (chest pain, altered mental status, abdominal pain women, abdominal pain men, vaginal bleeding, weakness, fever, dyspnea, syncope, headache, dizziness, GI bleed, back pain, seizure, CVA, palpatations, mental health, musculoskeletal)? @ -Hyperglycemia, nausea vomiting, DKA, metabolic acidosis EKG interpreted by me (3pts min.). @ -As above X-rays interpreted by me (1pt min.). @ -None done CT interpreted by me (1pt min.). @ -None done U/S interpreted by me (1pt. min.). @ -None done What testing was considered but not performed or refused? (CT, X-rays, U/S, labs)? Why? @ -None What meds were considered but not given or refused? Why? @ -None Did you discuss the management of the patient with other professionals (professionals i.e. , PA, X RAY PHYSICIAN, lab, RT, psych nurse, social science analyst, php website developer, teacher, aoc aadc operations staff officer, case advocate)? Give summary @ -[Case discussed with PCP Dr. Valenzuela for admission. Was smoking cessation discussed for >3mins.? @ -No Was critical care preformed (if so, how long)? @ -35 mins Were there social determinants of health that impacted care today? How? (Homelessness, low income, unemployed, alcoholism, drug addiction, transportation, low edu. Level, literacy, decrease access to med. care, detention, rehab)? @ -No Was there de-escalation of care discussed even if they declined (Discuss DNR or withdrawal of care, Hospice)? DNR status @ -No What co-morbidities impacted this encounter? (DM, HTN, Smoking, COPD, CAD, Cancer, CVA, ARF, Chemo, Hep., AIDS, mental health diagnosis, sleep apnea, morbid obesity)? @ -Diabetes Was patient admitted / discharged? Hospital course, mention meds given and route , prescriptions, significant lab abnormalities, going to OR and other pertinent info. @ -Admitted patient's found to be in DKA, CO2 is a patient's x-ray sac with hyperglycemia patient was started on DKA insulin protocol patient was given fluid bolus, antiemetics. Patient was admitted to Dr. Valenzuela. Undiagnosed new problem with uncertain prognosis? @ -No Drug Therapy requiring intensive monitoring for toxicity (Heparin, Nitro, Insulin, Cardizem)? @ -No Were any procedures done? @ -No Diagnosis/symptom? @ -DKA Acute, or Chronic, or Acute on Chronic? @ -Acute Uncomplicated (without systemic symptoms) or Complicated (systemic symptoms)? @ -[complicated Side effects of treatment? @ -No Exacerbation, Progression, or Severe Exacerbation? @ -No Poses a threat to life or bodily function? How? (Chest pain, USA, IA, pneumonia, PE, COPD, DKA, ARF, appy, cholecystitis, CVA, Diverticulitis, Homicidal, Suicidal, threat to staff... and all critical care pts) @ -yes patient has severe metabolic acidosis - Lab Data Result diagrams: 12/02/22 08:39 12/02/22 08:39 Lab Results 12/02/22 12/02/22 12/02/22 Range/Units 08:39 08:39 08:39 WBC 6.7 (3.8-10.6) k/uL RBC 4.42 (4.30-5.90) m/uL Hgb 13.0 (13.0-17.5) gm/dL Hct 43.5 (39.0-53.0) % MCV 98.5 (80.0-100.0) fL MCH 29.3 (25.0-35.0) pg MCHC 29.8 L (31.0-37.0) g/dL RDW 13.7 (11.5-15.5) % Plt Count 379 (150-450) k/uL MPV 7.6 Neutrophils % 69 % Lymphocytes % 25 % Monocytes % 4 % Eosinophils % 1 % Basophils % 0 % Neutrophils # 4.6 (1.3-7.7) k/uL Lymphocytes # 1.7 (1.0-4.8) k/uL Monocytes # 0.3 (0-1.0) k/uL Eosinophils # 0.1 (0-0.7) k/uL Basophils # 0.0 (0-0.2) k/uL Hypochromasia Moderate VBG pH (7.31-7.41) VBG pCO2 (37-51) mmHg VBG HCO3 (24-28) mmol/L Sodium 138 (137-145) mmol/L Potassium 4.9 (3.5-5.1) mmol/L Chloride 95 L (98-107) mmol/L Carbon Dioxide 8 L* (22-30) mmol/L Anion Gap 35 mmol/L BUN 20 (9-20) mg/dL Creatinine 0.90 (0.66-1.25) mg/dL Est GFR (CKD-EPI)AfAm >90 (>60 ml/min/1.73 sqM) Est GFR (CKD-EPI)NonAf >90 (>60 ml/min/1.73 sqM) Glucose 753 H* (74-99) mg/dL POC Glucose (mg/dL) (70-110) mg/dL POC Glu [place] ID Plasma Lactic Acid Len 2.6 H* (0.7-2.0) mmol/L Calcium 9.5 (8.4-10.2) mg/dL Magnesium 2.0 (1.6-2.3) mg/dL Total Bilirubin 0.8 (0.2-1.3) mg/dL AST 23 (17-59) U/L ALT 25 (4-49) U/L Alkaline Phosphatase 120 (38-126) U/L Total Protein 6.9 (6.3-8.2) g/dL Albumin 4.6 (3.5-5.0) g/dL Lipase 422 H (23-300) U/L 12/02/22 12/02/22 Range/Units 08:39 08:43 WBC (3.8-10.6) k/uL RBC (4.30-5.90) m/uL Hgb (13.0-17.5) gm/dL Hct (39.0-53.0) % MCV (80.0-100.0) fL MCH (25.0-35.0) pg MCHC (31.0-37.0) g/dL RDW (11.5-15.5) % Plt Count (150-450) k/uL MPV Neutrophils % % Lymphocytes % % Monocytes % % Eosinophils % % Basophils % % Neutrophils # (1.3-7.7) k/uL Lymphocytes # (1.0-4.8) k/uL Monocytes # (0-1.0) k/uL Eosinophils # (0-0.7) k/uL Basophils # (0-0.2) k/uL Hypochromasia VBG pH 7.38 (7.31-7.41) VBG pCO2 20 L (37-51) mmHg VBG HCO3 12 L (24-28) mmol/L Sodium (137-145) mmol/L Potassium (3.5-5.1) mmol/L Chloride (98-107) mmol/L Carbon Dioxide (22-30) mmol/L Anion Gap mmol/L BUN (9-20) mg/dL Creatinine (0.66-1.25) mg/dL Est GFR (CKD-EPI)AfAm (>60 ml/min/1.73 sqM) Est GFR (CKD-EPI)NonAf (>60 ml/min/1.73 sqM) Glucose (74-99) mg/dL POC Glucose (mg/dL) >600 H (70-110) mg/dL POC Glu [place] ID Eran Harrison Plasma Lactic Acid Len (0.7-2.0) mmol/L Calcium (8.4-10.2) mg/dL Magnesium (1.6-2.3) mg/dL Total Bilirubin (0.2-1.3) mg/dL AST (17-59) U/L ALT (4-49) U/L Alkaline Phosphatase (38-126) U/L Total Protein (6.3-8.2) g/dL Albumin (3.5-5.0) g/dL Lipase (23-300) U/L Critical Care Time Critical Care Time: Yes Total Critical Care Time: 35 Disposition Clinical Impression: Nausea & vomiting, Diabetic ketoacidosis associated with type 1 diabetes mellitus Disposition: ADMITTED IP TO THIS HOSP Condition: Poor Referrals: Brown Valenzuela MD [Primary Care Provider] - 1-2 days Time of Disposition: 09:55
[2022-12-02 11:12] LABS: Glucose,Whole Blood 421 mg/dL (70-110)
[2022-12-02 11:23] LABS: Appearance,Urine Clear (Clear); Bilirubin,Urine Negative (Negative); Blood,Urine Negative (Negative); Color,Urine Colorless; Glucose,Urine (UA) 4+ (Negative); Leukocyte Esterase,Urine Negative (Negative); Nitrite,Urine Negative (Negative); Protein,Urine Negative (Negative); Specific Gravity,Urine 1.025 (1.001-1.035); Urobilinogen,Urine <2.0 mg/dL (<2.0)
[2022-12-02 11:58] LABS: African American GFR (CKD) >90 (>60 ml/min/1.73 sqM); Anion Gap 22 mmol/L; Blood Urea Nitrogen 18 mg/dL (9-20); Carbon Dioxide 14 mmol/L (22-30); Chloride 108 mmol/L (98-107); Glucose 389 mg/dL (74-99); Non-African American GFR(CKD) >90 (>60 ml/min/1.73 sqM); Potassium 4.4 mmol/L (3.5-5.1); Sodium 144 mmol/L (137-145)
[2022-12-02 12:08] LABS: Glucose,Whole Blood 291 mg/dL (70-110)
[2022-12-02 12:13] LABS: Ketones,Urine 4+ (Negative)
[2022-12-02 12:54] LABS: Glucose,Whole Blood 212 mg/dL (70-110)
[2022-12-02] MEDS: D5-0.45% NACL WITH KCL 20MEQ/L 1,000 ML IV SCH ×3 (12:55→21:21)
[2022-12-02 14:15] LABS: Glucose,Whole Blood 170 mg/dL (70-110)
[2022-12-02 15:24] LABS: Glucose,Whole Blood 127 mg/dL (70-110)
[2022-12-02 16:04] LABS: Glucose,Whole Blood 114 mg/dL (70-110)
[2022-12-02 16:27] LABS: African American GFR (CKD) >90 (>60 ml/min/1.73 sqM); Anion Gap 7 mmol/L; Blood Urea Nitrogen 17 mg/dL (9-20); Carbon Dioxide 29 mmol/L (22-30); Chloride 106 mmol/L (98-107); Glucose 121 mg/dL (74-99); Non-African American GFR(CKD) >90 (>60 ml/min/1.73 sqM); Phosphorus 3.2 mg/dL (2.5-4.5); Potassium 4.1 mmol/L (3.5-5.1); Sodium 142 mmol/L (137-145)
[2022-12-02 16:41] LABS: Glucose,Whole Blood 120 mg/dL (70-110)
[2022-12-02 17:37] LABS: Glucose,Whole Blood 139 mg/dL (70-110)
[2022-12-02 18:04] LABS: Glucose,Whole Blood 136 mg/dL (70-110)
[2022-12-02] MEDS ORDERED: DEXTROSE 50% SYRINGE 50 ML IVP PRN ×2 (18:18)
[2022-12-02 19:01] LABS: Glucose,Whole Blood 178 mg/dL (70-110)
[2022-12-02] MEDS: INSULIN DETEMIR (LEVEMIR) 100 UNIT/ML SYR SQ SCH (19:01)
[2022-12-02] MEDS: INSULIN ASPART (NovoLOG) 100 UNIT/ML VIAL SQ SCH ×2 (20:16→20:41)
[2022-12-02 20:28] LABS: Glucose,Whole Blood 184 mg/dL (70-110)
[2022-12-02] MEDS: GABAPENTIN 300 MG CAP PO SCH (20:45)
[2022-12-02] MEDS ORDERED: MIRTAZAPINE 15 MG TAB PO SCH (21:00)
[2022-12-02] MEDS: LITHIUM CARBONATE 150 MG CAP PO SCH (21:19)
[2022-12-03] MEDS: SODIUM CHLORIDE 0.9% 1,000 ML IV SCH ×3 (04:57→17:28)
[2022-12-03 05:59] LABS: Glucose,Whole Blood 63 mg/dL (70-110)
[2022-12-03] MEDS: INSULIN ASPART (NovoLOG) 100 UNIT/ML VIAL SQ SCH ×6 (05:59→17:08)
[2022-12-03 06:23] LABS: Glucose,Whole Blood 74 mg/dL (70-110)
[2022-12-03] MEDS ORDERED: LOSARTAN 50 MG TAB PO SCH (09:00)
[2022-12-03] MEDS ORDERED: buPROPion XL 300 MG TAB.ER.24H PO SCH (09:00)
[2022-12-03 09:02] LABS: Glucose,Whole Blood 157 mg/dL (70-110)
[2022-12-03] MEDS: INSULIN DETEMIR (LEVEMIR) 100 UNIT/ML SYR SQ SCH (09:19)
[2022-12-03] MEDS: GABAPENTIN 300 MG CAP PO SCH ×2 (10:32→17:08)
[2022-12-03] MEDS: LITHIUM CARBONATE 150 MG CAP PO SCH (10:32)
[2022-12-03 11:29] LABS: Glucose,Whole Blood 105 mg/dL (70-110)
[2022-12-03 12:29] VITALS: BMI 18.1
--- NOTE | 2022-12-03 13:33 | P.CN ---
Psychiatric Consult - . Consult date: 12/03/22 Consult:: 12/03/22 13:31 Psychiatry was consulted again for "depression". As listed in previous psych consult notes, patient has a strong hx of multiple admissions in the past for dka and non comnpliance. patient is well known to both medical provider and psychiatry. patients depression and non compliance are very chronic issues and psychiatry has attempted several times in the past to coordinate care for him and get him connected with h/follow up and with housing however patient refuses time and time again. Auditing Specialist spoke with pts nurse today and explained the situation and obtained further information. Upon reviewing the intake notes, sp eaking with the nurse and also reviewing nursing/triage notes, patient has NOT been endorsing current suicidal/homicidal thoughts on this visit or acute change in his psychiatric condition. no acute mental health issues appear to be present at this time and at this time chart writer will again await primary provider to contact him directly with any acute mental health concerns about patient.
[2022-12-03] MEDS: D5-0.45% NACL WITH KCL 20MEQ/L 1,000 ML IV SCH ×2 (13:39→17:29)
[2022-12-03 15:07] VITALS: BP 107/70; PULSE 85; RESP 17; TEMP 98
[2022-12-03 16:50] LABS: Glucose,Whole Blood 137 mg/dL (70-110)
--- NOTE | 2022-12-04 00:57 | DS ---
DISCHARGE SUMMARY CHIEF COMPLAINT: Diabetic ketoacidosis and depression. HISTORY OF PRESENT ILLNESS AND PHYSICAL EXAMINATION: Details of this man's history and physical can be found in the initial workup. LABORATORY STUDIES: While he is in the hospital, he had laboratory studies, details of which can be found in the laboratory section of his chart. COURSE IN THE HOSPITAL: After admission, he was placed on bedrest, started on intravenous fluids and placed on a DKA protocol. Next day, he was awake and alert and numbers were improved. Blood sugars down to normal. It was felt he could be discharged once again. FINAL DIAGNOSES: 1. Diabetic ketoacidosis. 2. Depression. 3. Gastroparesis. 4. Peripheral neuropathy. OPERATIONS: None. CONSULTATIONS: Psychiatry. MMODL / IJN: [id number] /
--- NOTE | 2022-12-04 00:57 | HP ---
HISTORY AND PHYSICAL CHIEF COMPLAINT: DKA. HISTORY OF PRESENT ILLNESS: This is another of numerous admissions for this 27-year-old noncompliant type 1 insulin- dependent diabetic. He is in and out once or twice a week lately. He goes home and fails to take his insulin and other medications and then comes back in a diabetic ketoacidosis. This time his blood sugar was 752 with a pH of 7.38 and a bicarb of 8. REVIEW OF SYSTEMS: He denies any chest pain, abdominal pain, seizures, neurologic complaints other than his lower extremity neuropathy, etc. PAST MEDICAL HISTORY, FAMILY HISTORY PERSONAL AND SOCIAL HISTORIES: Are all otherwise unchanged. Every time he comes in to the hospital, he is seen by Psychiatry. This patient is basically presenting a picture of suicide by noncompliance. He has been in the psych unit here before and was in a psychiatric facility in [place]. He is a perfect case for a guardian, but he had 1 several years ago who resigned from his case because he was not controllable. PHYSICAL EXAMINATION: VITAL SIGNS: Normal except for tachycardia. HEENT: Head, ears, eyes, nose, mouth and throat are normal. CHEST: Clear. CARDIAC: Normal. ABDOMEN: Soft, nontender. EXTREMITIES: Normal. NEUROLOGICAL: Intact. IMPRESSION: 1. Diabetic ketoacidosis. 2. Depression. PLAN: 1. Bed rest. 2. IV fluids. 3. Psych consult. MMODL / IJN: [id number] /
== END 2022-12-03 18:17 | disposition home or self-care (01) | DRG 420 ==
LOC: EC 08:27 → 3SCARD 10:57 → 4SSUR 18:34
PROVIDERS: ADMIT Family Medicine; ATTEND Family Medicine
DX: E10.10 Type 1 diabetes mellitus with ketoacidosis without coma (principal); F17.290 Nicotine dependence, other tobacco product, uncomplicated; F32.A Depression, unspecified; E10.42 Type 1 diabetes mellitus with diabetic polyneuropathy; E10.43 Type 1 diabetes mellitus with diabetic autonomic (poly)neuropathy; K31.84 Gastroparesis; L30.9 Dermatitis, unspecified; E78.5 Hyperlipidemia, unspecified; J45.909 Unspecified asthma, uncomplicated; Z79.4 Long term (current) use of insulin; Z91.199 Patient's noncompliance with other medical treatment and regimen due to unspecified reason; Z82.49 Family history of ischemic heart disease and other diseases of the circulatory system
CPT/HCPCS: 36415; 80051; 80053; 81003; 82009; 82565; 82803; 82947; 83036; 83605; 83690; 83735; 84100; 84520; 85025; 93005; 96361; 96365; 96366; 96375; 99291

== ENCOUNTER 2022-12-08 08:05 | Inpatient (IN) | payer OTHER ==
[2022-12-08] MEDS ORDERED: droPERidol 5 MG/2 ML VIAL IVP ONE (08:13)
[2022-12-08] MEDS ORDERED: SODIUM CHLORIDE 0.9% 500 ML 500 ML IV ONE (08:13)
[2022-12-08] MEDS ORDERED: SODIUM CHLORIDE 0.9% 1,000 ML IV ONE (08:13)
[2022-12-08 08:40] LABS: Basophils # (A) 0.1 k/uL (0-0.2); Basophils % (A) 0 %; Eosinophils # (A) 0.1 k/uL (0-0.7); Eosinophils % (A) 1 %; HCT 47.3 % (39.0-53.0); HGB 14.3 gm/dL (13.0-17.5); Hypochromasia Marked; Lymphocytes # (A) 2.6 k/uL (1.0-4.8); Lymphocytes % (A) 13 %; MCH 30.7 pg (25.0-35.0); MCHC 30.3 g/dL (31.0-37.0); MCV 101.5 fL (80.0-100.0); Macrocytosis Slight; Mean Platelet Volume 7.6; Monocytes # (A) 0.6 k/uL (0-1.0); Monocytes % (A) 3 %; Neutrophils # (A) 16.1 k/uL (1.3-7.7); Neutrophils % (A) 82 %; Platelet Count 504 k/uL (150-450); RBC 4.66 m/uL (4.30-5.90); RDW 13.8 % (11.5-15.5); WBC 19.5 k/uL (3.8-10.6)
[2022-12-08 08:43] LABS: VBG PH 7.17 (7.31-7.41)
[2022-12-08 08:57] LABS: ALT 25 U/L (4-49); AST 23 U/L (17-59); African American GFR (CKD) 86 (>60 ml/min/1.73 sqM); Albumin 4.9 g/dL (3.5-5.0); Alkaline Phosphatase 113 U/L (38-126); Blood Urea Nitrogen 28 mg/dL (9-20); Calcium 9.7 mg/dL (8.4-10.2); Chloride 93 mmol/L (98-107); Non-African American GFR(CKD) 74 (>60 ml/min/1.73 sqM); Sodium 135 mmol/L (137-145); Total Bilirubin 0.8 mg/dL (0.2-1.3); Total Protein 7.3 g/dL (6.3-8.2)
[2022-12-08 09:09] LABS: Carbon Dioxide <5 mmol/L (22-30); Glucose 760 mg/dL (74-99)
[2022-12-08 09:10] LABS: Potassium 6.4 mmol/L (3.5-5.1)
[2022-12-08] MEDS ORDERED: INSULIN REGULAR BOLUS (FROM DRIP BAG) IV ONE (09:10)
--- NOTE | 2022-12-08 09:13 | ED ---
General Adult HPI - General Chief complaint: Nausea/Vomiting/Diarrhea Stated complaint: Vomiting, Type 1 Diab Time Seen by Provider: 12/08/22 08:05 Source: patient, EMS, RN notes reviewed, old records reviewed Mode of arrival: EMS Limitations: no limitations - History of Present Illness Initial comments: This is a 27-year-old male with a past medical history significant for diabetes. Patient states last night he started vomiting and he has been vomiting ever since. Patient states he continues to smoke marijuana. Patient denies any abdominal pain today. Patient denies any fever chills. Patient denies any chest pain or difficulty breathing. EMS stated that his greater breathing was close to 30 times a minute in route. And he was tachycardic in route. They had a sugar in the 300s. Patient was reluctant to give him any further history but he had no complaints for me other than what has been described - Related Data Home Medications Medication Instructions Recorded Confirmed Gabapentin 600 mg PO TID 10/14/22 12/02/22 [place] Carbonate 150 mg PO BID 10/14/22 12/02/22 Losartan [Cozaar] 50 mg PO DAILY 10/14/22 12/02/22 buPROPion XL [Wellbutrin XL] 300 mg PO DAILY 10/14/22 12/02/22 Mirtazapine [Remeron] 15 mg PO HS 10/28/22 12/02/22 INSULIN ASPART (NovoLOG) [NovoLOG 7 unit SQ AC-TID 11/14/22 12/02/22 (formulary)] Previous Rx's Medication Instructions Recorded Insulin Detemir (Levemir) [Levemir] 28 unit SQ DAILY@0700 30 Days #1 10/03/22 each Allergies Allergy/AdvReac Type Severity Reaction Status Date / Time No Known Allergies Allergy Verified 12/08/22 08:14 Review of Systems ROS Statement: Those systems with pertinent positive or pertinent negative responses have been documented in the HPI. ROS Other: All systems not noted in ROS Statement are negative. Past Medical History Past Medical History: Asthma, Diabetes Mellitus, Neurologic Disorder, Skin Disorder Additional Past Medical History / Comment(s): IDDM type I, neuropathy bilateral feet, DKA, eczema. History of Any Multi-Drug Resistant Organisms: None Reported Past Surgical History: Adenoidectomy Additional Past Surgical History / Comment(s): 2003 Recent EGD- gastritis Past Anesthesia/Blood Transfusion Reactions: No Reported Reaction Past Psychological History: Anxiety, Depression Smoking Status: Current every day smoker, Vaper Past Alcohol Use History: None Reported Past Drug Use History: None Reported - Past Family History Mother Family Medical History: CVA/TIA Additional Family Medical History / Comment(s): TIA Father Family Medical History: Hyperlipidemia, Hypertension Additional Family Medical History / Comment(s): . General Exam - General Exam Comments Initial Comments: GENERAL: Patient is well-developed and well-nourished. Patient is nontoxic and well- hydrated and is in moderate distress. ENT: Neck is soft and supple. No significant lymphadenopathy is noted. Oropharynx is clear. Moist mucous membranes. Neck has full range of motion without eliciting any pain. EYES: The sclera were anicteric and conjunctiva were pink and moist. Extraocular movements were intact and pupils were equal round and reactive to light. Eyelids were unremarkable. PULMONARY: Unlabored respirations. Good breath sounds bilaterally. No audible rales rhonchi or wheezing was noted. CARDIOVASCULAR: Patient is tachycardic at about 130 beats minute ABDOMEN: Soft and nontender with normal bowel sounds. SKIN: Skin is clear with no lesions or rashes and otherwise unremarkable. NEUROLOGIC: Patient is alert and oriented x3. Cranial nerves II through XII are grossly intact. Motor and sensory are also intact. Normal speech, volume and content. Symmetrical smile. MUSCULOSKELETAL: Normal extremities with adequate strength and full range of motion. No lower extremity swelling or edema. No calf tenderness. LYMPHATICS: No significant lymphadenopathy is noted PSYCHIATRIC: Normal psychiatric evaluation. Limitations: no limitations Course Vital Signs 12/08/22 08:11 Temperature 97.3 F L Pulse Rate 131 H Respiratory 25 H Rate Blood Pressure 115/72 O2 Sat by Pulse 100 Oximetry Medical Decision Making - Medical Decision Making EKG was interpreted by myself shows sinus tachycardia and 31 bpm TX interval 245 QRS 91 Q-T intervals 298 QTC is 375. Patient's EKG shows no ST segment patient. Compared to an old EKG there are no new changes noted Was pt. sent in by a medical professional or institution (, PA, TRANSFER AGENT, urgent care, hospital, or intermediate...) When possible be specific @ -No Did you speak to anyone other than the patient for history (EMS, parent, family, police, friend...)? What history was obtained from this source @ -No Did you review nursing and triage notes (agree or disagree)? Why? @ -I reviewed and agree with nursing and triage notes Were old charts reviewed (outside hosp., previous admission, EMS record, old EKG, old radiological studies, urgent care reports/EKG's, intermediate records)? Report findings @ -I reviewed prior lab work prior charts and prior radiological studies Differential Diagnosis (chest pain, altered mental status, abdominal pain women, abdominal pain men, vaginal bleeding, weakness, fever, dyspnea, syncope, headache, dizziness, GI bleed, back pain, seizure, CVA, palpatations, mental health, musculoskeletal)? @ -Differential Abdominal Pain Men: Appendicitis, cholecystitis, diverticulosis, ischemic bowel, pancreatitis, hepatitis, UTI, gastroenteritis, AAA, incarcerated hernia, bowel obstruction, constipation, inflammatory bowel, hepatitis, peptic ulcer disease, splenic infarction, perforated viscus, testicular torsion, this is not meant to be an all-inclusive list EKG interpreted by me (3pts min.). @ -As above X-rays interpreted by me (1pt min.). @ -None done CT interpreted by me (1pt min.). @ -None done U/S interpreted by me (1pt. min.). @ -None done What testing was considered but not performed or refused? (CT, X-rays, U/S, labs)? Why? @ -None What meds were considered but not given or refused? Why? @ -None Did you discuss the management of the patient with other professionals (professionals i.e. , PA, TRANSFER AGENT, lab, RT, psych nurse, social work associate, neon glass blower, teacher, chief compliance officer, registered nurse hh case manager)? Give summary @ -I spoke with Dr. Schwartz and Dr. Shankar about this patient's admission Was smoking cessation discussed for >3mins.? @ -No Was critical care preformed (if so, how long)? @ -35 minutes Were there social determinants of health that impacted care today? How? (Homelessness, low income, unemployed, alcoholism, drug addiction, transportation, low edu. Level, literacy, decrease access to med. care, senior care, rehab)? @ -No Was there de-escalation of care discussed even if they declined (Discuss DNR or withdrawal of care, Hospice)? DNR status @ -No What co-morbidities impacted this encounter? (DM, HTN, Smoking, COPD, CAD, Ca ncer, CVA, ARF, Chemo, Hep., AIDS, mental health diagnosis, sleep apnea, morbid obesity)? @ -None Was patient admitted / discharged? Hospital course, mention meds given and route, prescriptions, significant lab abnormalities, going to OR and other pertinent info. @ -Patient came in vomiting patient was given droperidol and seemed to stop the vomiting. Patient was also given a 1/2 L bolus of fluid and started on insulin drip. Labs came back and showed that the patient was in DKA spoke with Dr. Schwartz and he agreed to admit the patient admitted the patient I spoke with Dr. Shankar he agreed to take the patient in ICU. Undiagnosed new problem with uncertain prognosis? @ -No Drug Therapy requiring intensive monitoring for toxicity (Heparin, Nitro, Insulin, Cardizem)? @ -No Were any procedures done? @ -No Diagnosis/symptom? @ -Diabetic ketoacidosis Acute, or Chronic, or Acute on Chronic? @ -Acute Uncomplicated (without systemic symptoms) or Complicated (systemic symptoms)? @ -Complicated Side effects of treatment? @ -No Exacerbation, Progression, or Severe Exacerbation? @ -No Poses a threat to life or bodily function? How? (Chest pain, [place], [place], pneumonia, PE, COPD, DKA, ARF, appy, cholecystitis, CVA, Diverticulitis, Homicidal, Suicidal, threat to staff... and all critical care pts) @ -Yes this can lead to severe dehydration and - Lab Data Result diagrams: 12/08/22 08:16 12/08/22 08:16 Lab Results 12/08/22 12/08/22 12/08/22 Range/Units 08:16 08:16 08:22 WBC 19.5 H (3.8-10.6) k/uL RBC 4.66 (4.30-5.90) m/uL Hgb 14.3 (13.0-17.5) gm/dL Hct 47.3 (39.0-53.0) % MCV 101.5 H (80.0-100.0) fL MCH 30.7 (25.0-35.0) pg MCHC 30.3 L (31.0-37.0) g/dL RDW 13.8 (11.5-15.5) % Plt Count 504 H (150-450) k/uL MPV 7.6 Neutrophils % 82 % Lymphocytes % 13 % Monocytes % 3 % Eosinophils % 1 % Basophils % 0 % Neutrophils # 16.1 H (1.3-7.7) k/uL Lymphocytes # 2.6 (1.0-4.8) k/uL Monocytes # 0.6 (0-1.0) k/uL Eosinophils # 0.1 (0-0.7) k/uL Basophils # 0.1 (0-0.2) k/uL Hypochromasia Marked Macrocytosis Slight VBG pH 7.17 L* (7.31-7.41) VBG pCO2 17 L* (37-51) mmHg VBG HCO3 6 L* (24-28) mmol/L Sodium 135 L (137-145) mmol/L Potassium 6.4 H* (3.5-5.1) mmol/L Chloride 93 L (98-107) mmol/L Carbon Dioxide <5 L* (22-30) mmol/L Anion Gap mmol/L BUN 28 H (9-20) mg/dL Creatinine 1.33 H (0.66-1.25) mg/dL Est GFR (CKD-EPI)AfAm 86 (>60 ml/min/1.73 sqM) Est GFR (CKD-EPI)NonAf 74 (>60 ml/min/1.73 sqM) Glucose 760 H* (74-99) mg/dL Calcium 9.7 (8.4-10.2) mg/dL Total Bilirubin 0.8 (0.2-1.3) mg/dL AST 23 (17-59) U/L ALT 25 (4-49) U/L Alkaline Phosphatase 113 (38-126) U/L Total Protein 7.3 (6.3-8.2) g/dL Albumin 4.9 (3.5-5.0) g/dL Gastric Occult Blood (Negative) Acetone, Qual Positive (Negative) 12/08/22 Range/Units 08:22 WBC (3.8-10.6) k/uL RBC (4.30-5.90) m/uL Hgb (13.0-17.5) gm/dL Hct (39.0-53.0) % MCV (80.0-100.0) fL MCH (25.0-35.0) pg MCHC (31.0-37.0) g/dL RDW (11.5-15.5) % Plt Count (150-450) k/uL MPV Neutrophils % % Lymphocytes % % Monocytes % % Eosinophils % % Basophils % % Neutrophils # (1.3-7.7) k/uL Lymphocytes # (1.0-4.8) k/uL Monocytes # (0-1.0) k/uL Eosinophils # (0-0.7) k/uL Basophils # (0-0.2) k/uL Hypochromasia Macrocytosis VBG pH (7.31-7.41) VBG pCO2 (37-51) mmHg VBG HCO3 (24-28) mmol/L Sodium (137-145) mmol/L Potassium (3.5-5.1) mmol/L Chloride (98-107) mmol/L Carbon Dioxide (22-30) mmol/L Anion Gap mmol/L BUN (9-20) mg/dL Creatinine (0.66-1.25) mg/dL Est GFR (CKD-EPI)AfAm (>60 ml/min/1.73 sqM) Est GFR (CKD-EPI)NonAf (>60 ml/min/1.73 sqM) Glucose (74-99) mg/dL Calcium (8.4-10.2) mg/dL Total Bilirubin (0.2-1.3) mg/dL AST (17-59) U/L ALT (4-49) U/L Alkaline Phosphatase (38-126) U/L Total Protein (6.3-8.2) g/dL Albumin (3.5-5.0) g/dL Gastric Occult Blood Positive (Negative) Acetone, Qual (Negative) Critical Care Time Critical Care Time: Yes Total Critical Care Time: 35 Disposition Clinical Impression: DKA (diabetic ketoacidoses) Disposition: ADMITTED IP TO THIS HOSP Referrals: Brown Valenzuela MD [Primary Care Provider] - 1-2 days Time of Disposition: 10:10
[2022-12-08] MEDS ORDERED: INSULIN REGULAR 100 UNIT in SODIUM CHLORIDE 0.9% 100 ML IV SCH (09:45)
[2022-12-08] MEDS ORDERED: SODIUM CHLORIDE 0.9% 1,000 ML IV SCH (10:15)
[2022-12-08] MEDS: INSULIN REGULAR 100 UNIT in SODIUM CHLORIDE 0.9% 100 ML IV SCH ×2 (10:15→10:45)
[2022-12-08 10:34] LABS: Glucose,Whole Blood 591 mg/dL (70-110)
[2022-12-08 10:47] LABS: Glucose,Whole Blood 503 mg/dL (70-110)
[2022-12-08] MEDS ORDERED: NALOXONE 0.4 MG/ML 1 ML VIAL IV PRN (10:55)
--- NOTE | 2022-12-08 11:48 | P.CNPUL ---
History of Present Illness Consult date: 12/08/22 Chief complaint: Hyperglycemia History of present illness: 27-year-old male patient, type I diabetic, came into the emergency because of DKA, due to noncompliance. Another hospitalization from a series of previous hospitalizations due to same problem. He was apparently having some emesis and he continued to smoke marijuana and the had hyperglycemia and subsequently his condition decompensated. Denies having any abdominal pain. No chest pain. Tachycardic with elevated blood sugar at time of admission. Blood work showed white cell count of 19, potassium level of 6.4, bicarb is less than 5, BUN is at 28 with a creatinine 1.3, blood sugar is at 760, positive acetone, LFTs are normal. Started on IV fluids and insulin drip protocol. Review of Systems ROS unobtainable: due to mental status Past Medical History Past Medical History: Asthma, Diabetes Mellitus, Neurologic Disorder, Skin Disorder Additional Past Medical History / Comment(s): IDDM type I, neuropathy bilateral feet, DKA, eczema. History of Any Multi-Drug Resistant Organisms: None Reported Past Surgical History: Adenoidectomy Additional Past Surgical History / Comment(s): 2002 Recent EGD- gastritis Past Anesthesia/Blood Transfusion Reactions: No Reported Reaction Past Psychological History: Anxiety, Depression Additional Psychological History / Comment(s): Pt has had multiple psychiatric admissions for depression/suicide attempts. Smoking Status: Former smoker Past Alcohol Use History: None Reported Additional Past Alcohol Use History / Comment(s): Pt started smoking cigarettes as a teen and quit "long ago." Pt started occasional vaping in 2009. Past Drug Use History: None Reported Additional Drug Use History / Comment(s): Occasional - Past Family History Mother Family Medical History: CVA/TIA Additional Family Medical History / Comment(s): TIA Father Family Medical History: Hyperlipidemia, Hypertension Additional Family Medical History / Comment(s): . Medications and Allergies Home Medications Medication Instructions Recorded Confirmed Type Insulin Detemir (Levemir) [Levemir] 28 unit SQ DAILY@0700 30 Days #1 10/03/22 12/02/22 Rx each Gabapentin 600 mg PO TID 10/14/22 12/02/22 History [place] Carbonate 150 mg PO BID 10/14/22 12/02/22 History Losartan [Cozaar] 50 mg PO DAILY 10/14/22 12/02/22 History buPROPion XL [Wellbutrin XL] 300 mg PO DAILY 10/14/22 12/02/22 History Mirtazapine [Remeron] 15 mg PO HS 10/28/22 12/02/22 History INSULIN ASPART (NovoLOG) [NovoLOG 7 unit SQ AC-TID 11/14/22 12/02/22 History (formulary)] Allergies Allergy/AdvReac Type Severity Reaction Status Date / Time No Known Allergies Allergy Verified 12/08/22 08:14 Physical Exam Vitals: Vital Signs Temp Pulse Pulse Resp BP Pulse Ox 12/08/22 11:23 130 H 12/08/22 11:00 97.0 F L 133 H 10 L 120/80 96 12/08/22 10:20 134 H 18 90/50 97 12/08/22 10:00 135 H 17 89/22 98 12/08/22 09:40 135 H 25 H 85/51 99 12/08/22 09:10 130 H 22 100/47 100 12/08/22 08:40 130 H 20 112/75 99 12/08/22 08:11 97.3 F L 131 H 25 H 115/72 100 12/08/22 08:10 131 H 23 112/64 100 Intake and Output 12/07/22 12/08/22 12/08/22 22:59 06:59 14:59 Intake Total 200 Output Total 475 Balance -275 Intake: IV 200 Sodium Chloride 0.9% 1, 200 000 ml @ 200 mls/hr IV . Q5H [facility] Rx#:[id number] Output: Urine 475 Other: Voiding Method Urinal Weight 72.575 kg GENERAL EXAM: Alert, pleasant, thin 26-year-old male, on room air,patient seems quite dehydrated, not collaborating well with with examination, not answering questions, and he does have dry mucous membranes. HEAD: Normocephalic. EYES: Normal reaction of pupils, equal size. NOSE: Clear with pink turbinates. THROAT: No erythema or exudates. NECK: No masses, no JVD. CHEST: No chest wall deformity. LUNGS: Equal air entry with no crackles, wheeze, rhonchi or dullness. CVS: S1 and S2 normal with no audible murmur, regular rhythm.the patient is sinus tachycardia ABDOMEN: No hepatosplenomegaly, normal bowel sounds, no guarding or rigidity. SPINE: No scoliosis or deformity SKIN: No rashes CENTRAL NERVOUS SYSTEM: No focal deficits, tone is normal in all 4 extremities. EXTREMITIES: There is no peripheral edema. No clubbing, no cyanosis. Peripheral pulses are intact. Results - Laboratory Findings CBC and BMP: 12/08/22 08:16 12/08/22 08:16 Abnormal lab findings: Abnormal Labs 12/08/22 12/08/22 12/08/22 08:16 08:16 08:22 WBC 19.5 H MCV 101.5 H MCHC 30.3 L Plt Count 504 H Neutrophils # 16.1 H VBG pH 7.17 L* VBG pCO2 17 L* VBG HCO3 6 L* Sodium 135 L Potassium 6.4 H* Chloride 93 L Carbon Dioxide <5 L* BUN 28 H Creatinine 1.33 H Glucose 760 H* POC Glucose (mg/dL) 12/08/22 12/08/22 10:32 10:45 WBC MCV MCHC Plt Count Neutrophils # VBG pH VBG pCO2 VBG HCO3 Sodium Potassium Chloride Carbon Dioxide BUN Creatinine Glucose POC Glucose (mg/dL) 591 H 503 H Assessment and Plan Plan: Acute diabetic ketoacidosis, secondary to noncompliance with medications. Patient has had multiple episodes of DKA, last hospitalization was on 11/29/2022, treated and the patient was discharged home Anion gap metabolic acidosis, secondary to DKA. Type 1 diabetes mellitus, poor compliance, maintain on Levemir insulin 28 units in addition to NovoLog 7 units with meals and a slight scale coverage. Acute kidney injury secondary to above, likely on the basis of intravascular volume depletion/dehydration acute hyperkalemia secondary to above, the patient has hyperacute T waves Acute leukocytosis Diabetic neuropathy History of ongoing tobacco use/vaping. History of previous drug overdose and suicide attempt. History of major depression, and generalized anxiety. History of chronic marijuana use. Homelessness Plan Admit the patient to the ICU and implement DKA protocol, currently on IV fluids with normal saline 200 mL and the patient is also on insulin drip.
[2022-12-08 11:57] LABS: Glucose,Whole Blood 357 mg/dL (70-110)
[2022-12-08 12:04] LABS: African American GFR (CKD) >90 (>60 ml/min/1.73 sqM); Anion Gap 30 mmol/L; Blood Urea Nitrogen 29 mg/dL (9-20); Chloride 105 mmol/L (98-107); Glucose 438 mg/dL (74-99); Non-African American GFR(CKD) 80 (>60 ml/min/1.73 sqM); Potassium 5.1 mmol/L (3.5-5.1); Sodium 142 mmol/L (137-145)
[2022-12-08 12:10] LABS: Carbon Dioxide 7 mmol/L (22-30)
[2022-12-08 12:49] LABS: Glucose,Whole Blood 270 mg/dL (70-110)
[2022-12-08] MEDS ORDERED: ONDANSETRON 4 MG/2 ML VIAL IVP PRN (13:32)
[2022-12-08 14:06] LABS: Glucose,Whole Blood 186 mg/dL (70-110)
[2022-12-08] MEDS: D5W WITH KCL 20 MEQ/L 1,000 ML IV SCH ×2 (14:08→21:08)
[2022-12-08 14:53] LABS: Glucose,Whole Blood 182 mg/dL (70-110)
[2022-12-08 15:54] LABS: Glucose,Whole Blood 185 mg/dL (70-110)
[2022-12-08 16:38] LABS: African American GFR (CKD) >90 (>60 ml/min/1.73 sqM); Anion Gap 17 mmol/L; Blood Urea Nitrogen 27 mg/dL (9-20); Carbon Dioxide 17 mmol/L (22-30); Chloride 105 mmol/L (98-107); Glucose 169 mg/dL (74-99); Non-African American GFR(CKD) >90 (>60 ml/min/1.73 sqM); Sodium 139 mmol/L (137-145)
[2022-12-08 17:04] LABS: Glucose,Whole Blood 148 mg/dL (70-110)
[2022-12-08 18:02] LABS: Glucose,Whole Blood 193 mg/dL (70-110)
[2022-12-08 19:05] LABS: Glucose,Whole Blood 239 mg/dL (70-110)
[2022-12-08 20:12] LABS: Glucose,Whole Blood 168 mg/dL (70-110)
[2022-12-08 21:03] LABS: Glucose,Whole Blood 145 mg/dL (70-110)
[2022-12-08 21:06] LABS: African American GFR (CKD) >90 (>60 ml/min/1.73 sqM); Anion Gap 11 mmol/L; Blood Urea Nitrogen 23 mg/dL (9-20); Calcium 8.4 mg/dL (8.4-10.2); Carbon Dioxide 21 mmol/L (22-30); Chloride 100 mmol/L (98-107); Glucose 148 mg/dL (74-99); Non-African American GFR(CKD) >90 (>60 ml/min/1.73 sqM); Phosphorus 2.9 mg/dL (2.5-4.5); Potassium 4.8 mmol/L (3.5-5.1); Sodium 132 mmol/L (137-145)
[2022-12-08 22:13] LABS: Glucose,Whole Blood 166 mg/dL (70-110)
[2022-12-08 22:59] LABS: Glucose,Whole Blood 170 mg/dL (70-110)
[2022-12-09 01:04] LABS: Glucose,Whole Blood 162 mg/dL (70-110)
[2022-12-09 01:38] LABS: African American GFR (CKD) >90 (>60 ml/min/1.73 sqM); Anion Gap 8 mmol/L; Blood Urea Nitrogen 20 mg/dL (9-20); Calcium 8.4 mg/dL (8.4-10.2); Carbon Dioxide 23 mmol/L (22-30); Chloride 97 mmol/L (98-107); Glucose 126 mg/dL (74-99); Non-African American GFR(CKD) >90 (>60 ml/min/1.73 sqM); Potassium 4.6 mmol/L (3.5-5.1); Sodium 128 mmol/L (137-145)
[2022-12-09] MEDS ORDERED: INSULIN NPH 100 UNIT/ML 10 ML VIAL SQ ONE (01:51)
[2022-12-09] MEDS: INSULIN ASPART (NovoLOG) 100 UNIT/ML VIAL SQ SCH ×5 (02:27→12:38)
[2022-12-09 05:12] LABS: Basophils % (A) 0 %; Eosinophils # (A) 0.1 k/uL (0-0.7); Eosinophils % (A) 1 %; HCT 34.7 % (39.0-53.0); HGB 11.4 gm/dL (13.0-17.5); Lymphocytes # (A) 2.4 k/uL (1.0-4.8); Lymphocytes % (A) 14 %; MCH 30.3 pg (25.0-35.0); MCHC 32.9 g/dL (31.0-37.0); Mean Platelet Volume 7.2; Monocytes # (A) 1.2 k/uL (0-1.0); Monocytes % (A) 7 %; Neutrophils # (A) 13.2 k/uL (1.3-7.7); Neutrophils % (A) 77 %; Platelet Count 395 k/uL (150-450); RBC 3.77 m/uL (4.30-5.90); RDW 14.5 % (11.5-15.5); WBC 17.3 k/uL (3.8-10.6)
[2022-12-09 05:17] LABS: African American GFR (CKD) >90 (>60 ml/min/1.73 sqM); Anion Gap 14 mmol/L; Blood Urea Nitrogen 15 mg/dL (9-20); Calcium 8.1 mg/dL (8.4-10.2); Carbon Dioxide 19 mmol/L (22-30); Chloride 95 mmol/L (98-107); Glucose 259 mg/dL (74-99); Non-African American GFR(CKD) >90 (>60 ml/min/1.73 sqM); Potassium 4.5 mmol/L (3.5-5.1); Sodium 128 mmol/L (137-145)
[2022-12-09 06:39] LABS: Glucose,Whole Blood 312 mg/dL (70-110)
[2022-12-09] MEDS ORDERED: INSULIN DETEMIR (LEVEMIR) 100 UNIT/ML SYR SQ SCH (07:00)
[2022-12-09] MEDS ORDERED: SODIUM CHLORIDE 0.9% 1,000 ML IV SCH (09:00)
[2022-12-09 11:32] LABS: Glucose,Whole Blood 152 mg/dL (70-110)
--- NOTE | 2022-12-09 12:49 | P.PN ---
Subjective Progress Note Date: 12/09/22 Principal diagnosis: Acute diabetic ketoacidosis 27-year-old male patient, type I diabetic, came into the emergency because of DKA, due to noncompliance. Another hospitalization from a series of previous hospitalizations due to same problem. He was apparently having some emesis and he continued to smoke marijuana and the had hyperglycemia and subsequently his condition decompensated. Denies having any abdominal pain. No chest pain. Tachycardic with elevated blood sugar at time of admission. Blood work showed white cell count of 19, potassium level of 6.4, bicarb is less than 5, BUN is at 28 with a creatinine 1.3, blood sugar is at 760, positive acetone, LFTs are no rmal. Started on IV fluids and insulin drip protocol. Reevaluated today on 12/09/2022, patient is doing well, he is off insulin drip, he is on sliding scale insulin patient does not seem to be in any distress, however I restarted the patient on IV fluid 0.9 normal saline at 100 mL per hour. Blood sugar this morning is 152 electrolytes showed sodium of 128 potassium 4.5 bicarb is 19 and anion gap is 14. WBC count is 17.3 hemoglobin 11.4. Objective - Vital Signs Vital signs: Vital Signs Temp 98 F 12/09/22 08:00 Pulse 122 H 12/09/22 08:00 Resp 16 12/09/22 08:00 BP 116/83 12/09/22 08:00 Pulse Ox 96 12/09/22 08:41 FiO2 Intake & Output 12/08/22 12/09/22 12/09/22 18:59 06:59 18:59 Intake Total 1600 2123.018 Output Total 875 1500 Balance 725 623.018 Weight 72.575 kg 69.3 kg Intake: IV 1400 1050 D5w with KCl 20 Meq/l 1, 600 1050 000 ml @ 150 mls/hr IV . Q6H40M [facility]AEL Rx#:[id number] Sodium Chloride 0.9% 1, 800 000 ml @ 200 mls/hr IV . Q5H YAEL Rx#:[id number] Intake, IV Titration 73.018 Amount Insulin Regular 100 unit 73.018 In Sodium Chloride 0.9% 100 ml @ 0.1 UNITS/KG/HR 7.33 mls/hr IV .[id number] YAEL Rx#:[id number] Oral 200 1000 Output: Urine 775 1500 Emesis 100 Other: Voiding Method Urinal Urinal Urinal - Exam Physical Exam: Revealed a 27-year-old white male in no distress Head: Atraumatic, normocephalic. HEENT:[Neck is supple.] [No neck masses.] [No thyromegaly.] [No JVD.] Chest: [Clear throughout, no crackles, no rhonchi, no wheezes.] Cardiac Exam: [Normal S1 and S2, no S3 gallop, no murmur.] Abdomen: [Soft, nontender, no megaly, no rebound, no guarding, normal bowel sounds.] Extremities: [No clubbing, no edema, no cyanosis.] Neurological Exam: [No focal neurologic deficit.] - Labs CBC & Chem 7: 12/09/22 04:31 12/09/22 04:31 Labs: Abnormal Lab Results - Last 24 Hours (Table) 12/08/22 12/08/22 12/08/22 Range/Units 12:48 14:04 14:52 WBC (3.8-10.6) k/uL RBC (4.30-5.90) m/uL Hgb (13.0-17.5) gm/dL Hct (39.0-53.0) % Neutrophils # (1.3-7.7) k/uL Monocytes # (0-1.0) k/uL Sodium (137-145) mmol/L Chloride (98-107) mmol/L Carbon Dioxide (22-30) mmol/L BUN (9-20) mg/dL Glucose (74-99) mg/dL POC Glucose (mg/dL) 270 H 186 H 182 H (70-110) mg/dL Calcium (8.4-10.2) mg/dL 12/08/22 12/08/22 12/08/22 Range/Units 15:53 15:55 17:03 WBC (3.8-10.6) k/uL RBC (4.30-5.90) m/uL Hgb (13.0-17.5) gm/dL Hct (39.0-53.0) % Neutrophils # (1.3-7.7) k/uL Monocytes # (0-1.0) k/uL Sodium (137-145) mmol/L Chloride (98-107) mmol/L Carbon Dioxide 17 L (22-30) mmol/L BUN 27 H (9-20) mg/dL Glucose 169 H (74-99) mg/dL POC Glucose (mg/dL) 185 H 148 H (70-110) mg/dL Calcium (8.4-10.2) mg/dL 12/08/22 12/08/22 12/08/22 Range/Units 18:01 19:04 20:10 WBC (3.8-10.6) k/uL RBC (4.30-5.90) m/uL Hgb (13.0-17.5) gm/dL Hct (39.0-53.0) % Neutrophils # (1.3-7.7) k/uL Monocytes # (0-1.0) k/uL Sodium (137-145) mmol/L Chloride (98-107) mmol/L Carbon Dioxide (22-30) mmol/L BUN (9-20) mg/dL Glucose (74-99) mg/dL POC Glucose (mg/dL) 193 H 239 H 168 H (70-110) mg/dL Calcium (8.4-10.2) mg/dL 12/08/22 12/08/22 12/08/22 Range/Units 20:38 21:02 22:12 WBC (3.8-10.6) k/uL RBC (4.30-5.90) m/uL Hgb (13.0-17.5) gm/dL Hct (39.0-53.0) % Neutrophils # (1.3-7.7) k/uL Monocytes # (0-1.0) k/uL Sodium 132 L (137-145) mmol/L Chloride (98-107) mmol/L Carbon Dioxide 21 L (22-30) mmol/L BUN 23 H (9-20) mg/dL Glucose 148 H (74-99) mg/dL POC Glucose (mg/dL) 145 H 166 H (70-110) mg/dL Calcium (8.4-10.2) mg/dL 12/08/22 12/09/22 12/09/22 Range/Units 22:57 00:37 01:02 WBC (3.8-10.6) k/uL RBC (4.30-5.90) m/uL Hgb (13.0-17.5) gm/dL Hct (39.0-53.0) % Neutrophils # (1.3-7.7) k/uL Monocytes # (0-1.0) k/uL Sodium 128 L (137-145) mmol/L Chloride 97 L (98-107) mmol/L Carbon Dioxide (22-30) mmol/L BUN (9-20) mg/dL Glucose 126 H (74-99) mg/dL POC Glucose (mg/dL) 170 H 162 H (70-110) mg/dL Calcium (8.4-10.2) mg/dL 12/09/22 12/09/22 12/09/22 Range/Units 04:31 04:31 06:38 WBC 17.3 H (3.8-10.6) k/uL RBC 3.77 L (4.30-5.90) m/uL Hgb 11.4 L (13.0-17.5) gm/dL Hct 34.7 L (39.0-53.0) % Neutrophils # 13.2 H (1.3-7.7) k/uL Monocytes # 1.2 H (0-1.0) k/uL Sodium 128 L (137-145) mmol/L Chloride 95 L (98-107) mmol/L Carbon Dioxide 19 L (22-30) mmol/L BUN (9-20) mg/dL Glucose 259 H (74-99) mg/dL POC Glucose (mg/dL) 312 H (70-110) mg/dL Calcium 8.1 L (8.4-10.2) mg/dL 12/09/22 Range/Units 11:30 WBC (3.8-10.6) k/uL RBC (4.30-5.90) m/uL Hgb (13.0-17.5) gm/dL Hct (39.0-53.0) % Neutrophils # (1.3-7.7) k/uL Monocytes # (0-1.0) k/uL Sodium (137-145) mmol/L Chloride (98-107) mmol/L Carbon Dioxide (22-30) mmol/L BUN (9-20) mg/dL Glucose (74-99) mg/dL POC Glucose (mg/dL) 152 H (70-110) mg/dL Calcium (8.4-10.2) mg/dL Assessment and Plan Assessment: Impression: Acute diabetic ketoacidosis Anion gap metabolic acidosis secondary to above Type 1 diabetes with poor compliance Acute kidney injury secondary to above/intravascular depletion/dehydration Acute hyperkalemia secondary to above Diabetic neuropathy History of major depression and generalized anxiety disorder Recommendation: Continue present supportive care measures Continue IV fluid at 100 mL/h using 0.9 normal saline Transfer patient out of the ICU once a bed is available on medical surgical floor. We will continue to follow Continue sliding scale insulin and Accu-Cheks as per protocol. Time with Patient: Less than 30
[2022-12-09 13:39] LABS: Glucose,Whole Blood 237 mg/dL (70-110)
[2022-12-09 13:47] VITALS: BP 130/82; PULSE 116; RESP 18; TEMP 98.2
--- NOTE | 2022-12-10 23:21 | HP ---
HISTORY AND PHYSICAL CHIEF COMPLAINT: Diabetic ketoacidosis. HISTORY OF PRESENT ILLNESS: Another admission for this 27-year-old white male with type 1 insulin-dependent diabetes mellitus who never takes care of himself. He was discharged several days ago and now he is back in. REVIEW OF SYSTEMS: He is nauseated. He is thirsty and he is lethargic. PAST MEDICAL HISTORY, FAMILY HISTORY, AND PERSONAL AND SOCIAL HISTORIES: All otherwise unremarkable or noncontributory and they are unchanged from his recent admitting and discharge summaries. PHYSICAL EXAMINATION: VITAL SIGNS: Blood pressure is 108/74 with a pulse of 100, respirations of 35. He is afebrile. GENERAL: Appeared to be slender, dehydrated, and lethargic. HEENT: Head, ears, eyes, nose, mouth and throat were normal except for dry mucous membranes. NECK: Supple. CHEST: Clear. CARDIAC: Demonstrates sinus tachycardia. ABDOMEN: Flat, soft, nontender. Bowel sounds present. EXTREMITIES: Normal. NEUROLOGIC: He is intact. DIAGNOSES: He is admitted to the hospital with diagnoses: 1. Diabetic ketoacidosis. 2. Type 1 insulin-dependent diabetes mellitus. 3. Noncompliant patient. 4. Gastroparesis. 5. Diabetic peripheral neuropathy. PLAN: 1. Bedrest. 2. IV fluids. 3. DKA protocol. MMODL / TRAMN: [id number] /
--- NOTE | 2022-12-10 23:27 | DS ---
DISCHARGE SUMMARY CHIEF COMPLAINT: Diabetic ketoacidosis. HISTORY OF PRESENT ILLNESS AND PHYSICAL EXAMINATION: Details of this man's history and physical can be found in the initial workup. LABORATORY STUDIES: While he was in a hospital, he had laboratory studies, details of which can be found in the laboratory section of his chart. COURSE IN THE HOSPITAL: After admission, he was placed on bedrest and started on DKA protocol. He did well. Sugars came down and gap closed. He then signed himself out against medical advice. FINAL DIAGNOSES: 1. Diabetic ketoacidosis. 2. Diabetic peripheral neuropathy. 3. Noncompliant patient. 4. Type 1 insulin-dependent diabetes mellitus. 5. Gastroparesis. 6. Depression. OPERATIONS: None. CONSULTATIONS: ICU management, is improved. GRACE / ALDEN: [id number] /
== END 2022-12-09 13:50 | disposition left against medical advice (07) | DRG 420 ==
LOC: EC 08:05 → 2SICU 10:11
PROVIDERS: ADMIT Family Medicine; ATTEND Family Medicine
DX: E10.10 Type 1 diabetes mellitus with ketoacidosis without coma (principal); R00.0 Tachycardia, unspecified; Z53.29 Procedure and treatment not carried out because of patient's decision for other reasons; E10.42 Type 1 diabetes mellitus with diabetic polyneuropathy; N17.9 Acute kidney failure, unspecified; E87.5 Hyperkalemia; E86.0 Dehydration; J45.909 Unspecified asthma, uncomplicated; F32.A Depression, unspecified; E10.43 Type 1 diabetes mellitus with diabetic autonomic (poly)neuropathy; K31.84 Gastroparesis; F41.1 Generalized anxiety disorder; I10 Essential (primary) hypertension; E86.9 Volume depletion, unspecified; F17.290 Nicotine dependence, other tobacco product, uncomplicated; Z79.4 Long term (current) use of insulin; Z79.899 Other long term (current) drug therapy; Z91.199 Patient's noncompliance with other medical treatment and regimen due to unspecified reason; Z82.49 Family history of ischemic heart disease and other diseases of the circulatory system
CPT/HCPCS: 36415; 80048; 80051; 80053; 82009; 82271; 82565; 82803; 82947; 84100; 84520; 85025; 93005; 94760; 96361; 96374; 99291

== ENCOUNTER 2022-12-16 02:10 | Inpatient (IN) | payer OTHER ==
[2022-12-16] MEDS ORDERED: SODIUM CHLORIDE 0.9% 1,000 ML IV ONE ×2 (02:13→03:06)
[2022-12-16 02:17] LABS: Glucose,Whole Blood >600 mg/dL (70-110)
--- NOTE | 2022-12-16 02:38 | ED ---
General Adult HPI - General Stated complaint: High Blood Sugar Time Seen by Provider: 12/16/22 02:12 Source: patient, EMS, RN notes reviewed, old records reviewed Mode of arrival: EMS Limitations: no limitations - History of Present Illness Initial comments: 27-year-old male presenting with nausea vomiting, tachypnea. History of type 1 diabetes. Patient has been off of his insulin for approximately one day, friends. Patient is able to answer simple questions upon arrival. Her medics had initiated IV fluids and noted that the blood sugar was quite elevated. - Related Data Home Medications Medication Instructions Recorded Confirmed Gabapentin 600 mg PO TID 10/14/22 12/08/22 [place] Carbonate 150 mg PO BID 10/14/22 12/08/22 Losartan [Cozaar] 50 mg PO DAILY 10/14/22 12/08/22 buPROPion XL [Wellbutrin XL] 300 mg PO DAILY 10/14/22 12/08/22 Mirtazapine [Remeron] 15 mg PO HS 10/28/22 12/08/22 INSULIN ASPART (NovoLOG) [NovoLOG 7 unit SQ AC-TID 11/14/22 12/08/22 (formulary)] Previous Rx's Medication Instructions Recorded Insulin Detemir (Levemir) [Levemir] 28 unit SQ DAILY@0700 30 Days #1 10/03/22 each Allergies Allergy/AdvReac Type Severity Reaction Status Date / Time No Known Allergies Allergy Verified 12/08/22 08:14 Review of Systems ROS Statement: Those systems with pertinent positive or pertinent negative responses have been documented in the HPI. ROS Other: All systems not noted in ROS Statement are negative. Past Medical History Past Medical History: Asthma, Diabetes Mellitus, Neurologic Disorder, Skin Disorder Additional Past Medical History / Comment(s): IDDM type I, neuropathy bilateral feet, DKA, eczema. History of Any Multi-Drug Resistant Organisms: None Reported Past Surgical History: Adenoidectomy Additional Past Surgical History / Comment(s): 2003 Recent EGD- gastritis Past Anesthesia/Blood Transfusion Reactions: No Reported Reaction Past Psychological History: Anxiety, Depression Smoking Status: Former smoker Past Alcohol Use History: None Reported Past Drug Use History: None Reported - Past Family History Mother Family Medical History: CVA/TIA Additional Family Medical History / Comment(s): TIA Father Family Medical History: Hyperlipidemia, Hypertension Additional Family Medical History / Comment(s): . General Exam Limitations: no limitations General appearance: lethargic Head exam: Present: atraumatic, normocephalic Eye exam: Present: normal appearance, PERRL ENT exam: Present: mucous membranes dry Neck exam: Present: normal inspection. Absent: tenderness Respiratory exam: Present: normal lung sounds bilaterally, respiratory distress Cardiovascular Exam: Present: normal rhythm, tachycardia GI/Abdominal exam: Present: soft. Absent: distended, tenderness, guarding Extremities exam: Present: normal inspection Neurological exam: Present: alert Skin exam: Present: warm, dry, intact, pallor Course Vital Signs 12/16/22 12/16/22 12/16/22 02:17 03:00 04:00 Temperature 97.6 F Pulse Rate 128 H 122 H 120 H Respiratory 18 22 26 H Rate Blood Pressure 111/85 111/85 111/69 O2 Sat by Pulse 98 98 97 Oximetry Medical Decision Making - Medical Decision Making Was pt. sent in by a medical professional or institution (, PA, PRINCIPAL SOLUTIONS ARCHITECT, urgent care, hospital, or fci...) When possible be specific @ -No Did you speak to anyone other than the patient for history (EMS, parent, family, police, friend...)? What history was obtained from this source @ -[Paramedics provide history Did you review nursing and triage notes (agree or disagree)? Why? @ -I reviewed and agree with nursing and triage notes Were old charts reviewed (outside hosp., previous admission, EMS record, old EKG, old radiological studies, urgent care reports/EKG's, fci records)? Report findings @ -No old charts were reviewed Differential Diagnosis (chest pain, altered mental status, abdominal pain women, abdominal pain men, vaginal bleeding, weakness, fever, dyspnea, syncope, headache, dizziness, GI bleed, back pain, seizure, CVA, palpatations, mental health, musculoskeletal)? @ -Differential Weakness: Hyperglycemia, DKA, Hypoglycemia, shock, sepsis, hyponatremia, anemia, infection, NM, ETOH, adverse medicine reaction, overdose, stroke, this is not meant to be an all-inclusive list. EKG interpreted by me (3pts min.). @ Sinus tachycardia with a rate of 124, PA interval 229, QRS duration 98, QTC 392, peaked T waves. X-rays interpreted by me (1pt min.). @ -None done CT interpreted by me (1pt min.). @ -None done U/S interpreted by me (1pt. min.). @ -None done What testing was considered but not performed or refused? (CT, X-rays, U/S, labs)? Why? @ -None What meds were considered but not given or refused? Why? @ -None Did you discuss the management of the patient with other professionals (professionals i.e. Dr., PA, PRINCIPAL SOLUTIONS ARCHITECT, lab, RT, psych nurse, manager social media, mat puncher, teacher, professional security officer, case loader operator)? Give summary @ -[Dr. Valenzuela, Dr. Montoya Was smoking cessation discussed for >3mins.? @ -No Was critical care preformed (if so, how long)? @ -[Yes, 35 minutes Were there social determinants of health that impacted care today? How? (Gale elessness, low income, unemployed, alcoholism, drug addiction, transportation, low edu. Level, literacy, decrease access to med. care, long-term, rehab)? @ -No Was there de-escalation of care discussed even if they declined (Discuss DNR or withdrawal of care, Hospice)? DNR status @ -No What co-morbidities impacted this encounter? (DM, HTN, Smoking, COPD, CAD, Cancer, CVA, ARF, Chemo, Hep., AIDS, mental health diagnosis, sleep apnea, morbid obesity)? @ -[Type 1 diabetes Was patient admitted / discharged? Hospital course, mention meds given and route, prescriptions, significant lab abnormalities, going to OR and other pertinent info. @ -[27-year-old male presenting with vomiting, confusion, tachypnea. History of DKA. Patient appears to be in DKA about initial physical assessment. Laboratory studies performed. The patient is severely acidotic with a pH of 7. 05. He has an nondetectable CO2 and anion gap metabolic acidosis. He also has a concurrent lactic acidosis which I suspect is from dehydration. He has a significantly elevated white blood cell count which is typical for this patient. He has no current signs of infection I suspect this is reactive. He has an acute kidney injury with an elevated serum creatinine. His initial potassium is elevated at 6.6 and he does have peaked T waves. This is treated with IV fluids and IV insulin. His repeat is significantly improved at 5.7. His blood sugar is initially overnight 100 and he is acetone positive. He will be admitted for diabetic ketoacidosis with lactic acidosis. Admitted to Dr. Lana you. Patient placed in ICU Undiagnosed new problem with uncertain prognosis? @ -No Drug Therapy requiring intensive monitoring for toxicity (Heparin, Nitro, Insulin, Cardizem)? @ -No Were any procedures done? @ -No Diagnosis/symptom? @ -Diabetic ketoacidosis Acute, or Chronic, or Acute on Chronic? @ -[Acute Uncomplicated (without systemic symptoms) or Complicated (systemic symptoms)? @ -Complicated Side effects of treatment? @ -No Exacerbation, Progression, or Severe Exacerbation? @ -No Poses a threat to life or bodily function? How? (Chest pain, USA, NM, pneumonia, PE, COPD, DKA, ARF, appy, cholecystitis, CVA, Diverticulitis, Homicidal, Suicidal, threat to staff... and all critical care pts) @ -Yes, electrolyte abnormality, arrhythmia, volume loss, shock - Lab Data Result diagrams: 12/16/22 02:23 12/16/22 03:45 Lab Results 12/16/22 12/16/22 12/16/22 Range/Units 02:15 02:23 02:23 WBC 35.6 H (3.8-10.6) k/uL RBC 4.53 (4.30-5.90) m/uL Hgb 14.7 D (13.0-17.5) gm/dL Hct 48.0 (39.0-53.0) % MCV 106.0 H D (80.0-100.0) fL MCH 32.4 (25.0-35.0) pg MCHC 30.6 L (31.0-37.0) g/dL RDW 14.0 (11.5-15.5) % Plt Count 461 H (150-450) k/uL MPV 8.2 Neutrophils % 86 % Lymphocytes % 9 % Monocytes % 3 % Eosinophils % 1 % Basophils % 1 % Neutrophils # 30.5 H (1.3-7.7) k/uL Lymphocytes # 3.3 (1.0-4.8) k/uL Monocytes # 1.2 H (0-1.0) k/uL Eosinophils # 0.2 (0-0.7) k/uL Basophils # 0.2 (0-0.2) k/uL Hypochromasia Marked Macrocytosis Moderate VBG pH (7.31-7.41) VBG pCO2 (37-51) mmHg VBG HCO3 (24-28) mmol/L Sodium 133 L (137-145) mmol/L Potassium 6.6 H* (3.5-5.1) mmol/L Chloride 89 L (98-107) mmol/L Carbon Dioxide <5 L* (22-30) mmol/L Anion Gap mmol/L BUN 30 H (9-20) mg/dL Creatinine 1.62 H (0.66-1.25) mg/dL Est GFR (CKD-EPI)AfAm 67 (>60 ml/min/1.73 sqM) Est GFR (CKD-EPI)NonAf 58 (>60 ml/min/1.73 sqM) Glucose 907 H* (74-99) mg/dL POC Glucose (mg/dL) >600 H (70-110) mg/dL POC Glu Transition Nurse ID Yoana Deluna Plasma Lactic Acid Len (0.7-2.0) mmol/L Calcium 9.4 (8.4-10.2) mg/dL Magnesium 2.4 H (1.6-2.3) mg/dL Total Bilirubin 0.7 (0.2-1.3) mg/dL AST 25 (17-59) U/L ALT 23 (4-49) U/L Alkaline Phosphatase 110 (38-126) U/L Total Protein 7.5 (6.3-8.2) g/dL Albumin 4.9 (3.5-5.0) g/dL Urine Color Urine Appearance (Clear) Urine pH (5.0-8.0) Ur Specific [place] (1.001-1.035) Urine Protein (Negative) Urine Glucose (UA) (Negative) Urine Ketones (Negative) Urine Blood (Negative) Urine Nitrite (Negative) Urine Bilirubin (Negative) Urine Urobilinogen (<2.0) mg/dL Ur Leukocyte Esterase (Negative) Acetone, Qual Positive (Negative) 12/16/22 12/16/22 12/16/22 Range/Units 02:23 02:23 03:45 WBC (3.8-10.6) k/uL RBC (4.30-5.90) m/uL Hgb (13.0-17.5) gm/dL Hct (39.0-53.0) % MCV (80.0-100.0) fL MCH (25.0-35.0) pg MCHC (31.0-37.0) g/dL RDW (11.5-15.5) % Plt Count (150-450) k/uL MPV Neutrophils % % Lymphocytes % % Monocytes % % Eosinophils % % Basophils % % Neutrophils # (1.3-7.7) k/uL Lymphocytes # (1.0-4.8) k/uL Monocytes # (0-1.0) k/uL Eosinophils # (0-0.7) k/uL Basophils # (0-0.2) k/uL Hypochromasia Macrocytosis VBG pH 7.05 L* (7.31-7.41) VBG pCO2 15 L* (37-51) mmHg VBG HCO3 4 L* (24-28) mmol/L Sodium (137-145) mmol/L Potassium (3.5-5.1) mmol/L Chloride (98-107) mmol/L Carbon Dioxide (22-30) mmol/L Anion Gap mmol/L BUN (9-20) mg/dL Creatinine (0.66-1.25) mg/dL Est GFR (CKD-EPI)AfAm (>60 ml/min/1.73 sqM) Est GFR (CKD-EPI)NonAf (>60 ml/min/1.73 sqM) Glucose (74-99) mg/dL POC Glucose (mg/dL) (70-110) mg/dL POC Glu Transition Nurse ID Plasma Lactic Acid Len 6.1 H* (0.7-2.0) mmol/L Calcium (8.4-10.2) mg/dL Magnesium (1.6-2.3) mg/dL Total Bilirubin (0.2-1.3) mg/dL AST (17-59) U/L ALT (4-49) U/L Alkaline Phosphatase (38-126) U/L Total Protein (6.3-8.2) g/dL Albumin (3.5-5.0) g/dL Urine Color Colorless Urine Appearance Clear (Clear) Urine pH 5.0 (5.0-8.0) Ur Specific [place] 1.019 (1.001-1.035) Urine Protein Negative (Negative) Urine Glucose (UA) 4+ H (Negative) Urine Ketones 4+ H (Negative) Urine Blood Negative (Negative) Urine Nitrite Negative (Negative) Urine Bilirubin Negative (Negative) Urine Urobilinogen <2.0 (<2.0) mg/dL Ur Leukocyte Esterase Negative (Negative) Acetone, Qual (Negative) 12/16/22 12/16/22 12/16/22 Range/Units 03:45 03:45 03:52 WBC (3.8-10.6) k/uL RBC (4.30-5.90) m/uL Hgb (13.0-17.5) gm/dL Hct (39.0-53.0) % MCV (80.0-100.0) fL MCH (25.0-35.0) pg MCHC (31.0-37.0) g/dL RDW (11.5-15.5) % Plt Count (150-450) k/uL MPV Neutrophils % % Lymphocytes % % Monocytes % % Eosinophils % % Basophils % % Neutrophils # (1.3-7.7) k/uL Lymphocytes # (1.0-4.8) k/uL Monocytes # (0-1.0) k/uL Eosinophils # (0-0.7) k/uL Basophils # (0-0.2) k/uL Hypochromasia Macrocytosis VBG pH (7.31-7.41) VBG pCO2 (37-51) mmHg VBG HCO3 (24-28) mmol/L Sodium 138 (137-145) mmol/L Potassium 5.7 H (3.5-5.1) mmol/L Chloride 97 L (98-107) mmol/L Carbon Dioxide <5 L* (22-30) mmol/L Anion Gap mmol/L BUN 30 H (9-20) mg/dL Creatinine 1.47 H (0.66-1.25) mg/dL Est GFR (CKD-EPI)AfAm 76 (>60 ml/min/1.73 sqM) Est GFR (CKD-EPI)NonAf 66 (>60 ml/min/1.73 sqM) Glucose 803 H* (74-99) mg/dL POC Glucose (mg/dL) >600 H (70-110) mg/dL POC Glu Transition Nurse ID Eliezer Grant Plasma Lactic Acid Len 4.9 H* (0.7-2.0) mmol/L Calcium 8.5 (8.4-10.2) mg/dL Magnesium (1.6-2.3) mg/dL Total Bilirubin (0.2-1.3) mg/dL AST (17-59) U/L ALT (4-49) U/L Alkaline Phosphatase (38-126) U/L Total Protein (6.3-8.2) g/dL Albumin (3.5-5.0) g/dL Urine Color Urine Appearance (Clear) Urine pH (5.0-8.0) Ur Specific [place] (1.001-1.035) Urine Protein (Negative) Urine Glucose (UA) (Negative) Urine Ketones (Negative) Urine Blood (Negative) Urine Nitrite (Negative) Urine Bilirubin (Negative) Urine Urobilinogen (<2.0) mg/dL Ur Leukocyte Esterase (Negative) Acetone, Qual (Negative) Critical Care Time Critical Care Time: Yes Total Critical Care Time: 35 Disposition Clinical Impression: DKA (diabetic ketoacidoses) Disposition: ADMITTED IP TO THIS [facility] Condition: Serious Is patient prescribed a controlled substance at d/c from ED?: No Referrals: Brown Valenzuela MD [Primary Care Provider] - 1-2 days Time of Disposition: 04:46
[2022-12-16 02:41] LABS: Basophils # (A) 0.2 k/uL (0-0.2); Basophils % (A) 1 %; Eosinophils # (A) 0.2 k/uL (0-0.7); Eosinophils % (A) 1 %; Hypochromasia Marked; Lymphocytes # (A) 3.3 k/uL (1.0-4.8); Lymphocytes % (A) 9 %; MCH 32.4 pg (25.0-35.0); MCHC 30.6 g/dL (31.0-37.0); Macrocytosis Moderate; Mean Platelet Volume 8.2; Monocytes # (A) 1.2 k/uL (0-1.0); Monocytes % (A) 3 %; Neutrophils # (A) 30.5 k/uL (1.3-7.7); Neutrophils % (A) 86 %; Platelet Count 461 k/uL (150-450); RBC 4.53 m/uL (4.30-5.90); WBC 35.6 k/uL (3.8-10.6)
[2022-12-16 02:48] LABS: VBG PH 7.05 (7.31-7.41)
[2022-12-16 02:51] LABS: HGB 14.7 gm/dL (13.0-17.5)
[2022-12-16 02:56] LABS: ALT 23 U/L (4-49); AST 25 U/L (17-59); African American GFR (CKD) 67 (>60 ml/min/1.73 sqM); Albumin 4.9 g/dL (3.5-5.0); Alkaline Phosphatase 110 U/L (38-126); Blood Urea Nitrogen 30 mg/dL (9-20); Calcium 9.4 mg/dL (8.4-10.2); Chloride 89 mmol/L (98-107); Magnesium 2.4 mg/dL (1.6-2.3); Non-African American GFR(CKD) 58 (>60 ml/min/1.73 sqM); Sodium 133 mmol/L (137-145); Total Bilirubin 0.7 mg/dL (0.2-1.3); Total Protein 7.5 g/dL (6.3-8.2)
[2022-12-16 03:05] LABS: Glucose 907 mg/dL (74-99)
[2022-12-16] MEDS ORDERED: INSULIN REGULAR BOLUS (FROM DRIP BAG) IV ONE (03:05)
[2022-12-16 03:06] LABS: Carbon Dioxide <5 mmol/L (22-30); Potassium 6.6 mmol/L (3.5-5.1)
[2022-12-16] MEDS: SODIUM CHLORIDE 0.9% 1,000 ML IV SCH ×5 (03:16→19:43)
[2022-12-16] MEDS: INSULIN REGULAR 100 UNIT in SODIUM CHLORIDE 0.9% 100 ML IV SCH ×2 (03:28→10:44)
[2022-12-16 03:55] LABS: Glucose,Whole Blood >600 mg/dL (70-110)
[2022-12-16 04:03] LABS: Appearance,Urine Clear (Clear); Bilirubin,Urine Negative (Negative); Blood,Urine Negative (Negative); Color,Urine Colorless; Glucose,Urine (UA) 4+ (Negative); Leukocyte Esterase,Urine Negative (Negative); Nitrite,Urine Negative (Negative); Protein,Urine Negative (Negative); Specific Gravity,Urine 1.019 (1.001-1.035); Urobilinogen,Urine <2.0 mg/dL (<2.0)
[2022-12-16 04:14] LABS: Ketones,Urine 4+ (Negative)
[2022-12-16 04:20] LABS: African American GFR (CKD) 76 (>60 ml/min/1.73 sqM); Blood Urea Nitrogen 30 mg/dL (9-20); Calcium 8.5 mg/dL (8.4-10.2); Chloride 97 mmol/L (98-107); Non-African American GFR(CKD) 66 (>60 ml/min/1.73 sqM); Potassium 5.7 mmol/L (3.5-5.1); Sodium 138 mmol/L (137-145)
[2022-12-16 04:41] LABS: Carbon Dioxide <5 mmol/L (22-30); Glucose 803 mg/dL (74-99)
[2022-12-16 05:52] LABS: Glucose,Whole Blood 417 mg/dL (70-110)
--- NOTE | 2022-12-16 06:40 | P.CNPUL ---
History of Present Illness Consult date: 12/16/22 Requesting physician: Gene Gregorio Reason for consult: other (ICU management) Chief complaint: Nausea and vomiting History of present illness: I am seeing this patient in new consultation today 12/16/2022 in the emergency room for acute diabetic ketoacidosis. Patient is a 27-year-old white male with past medical history significant for type 1 diabetes mellitus and frequent hospital admissions for DKA. Patient is a known history of medication noncompliance. Patient was last admitted approximately 1 week ago on December 08, and he left AGAINST MEDICAL ADVICE on December 10. Patient states that he was having hyperglycemia at home, and then his condition worsened. He states that he was taking his insulin. Denies any infectious symptoms. He does have nausea and vomiting. No abdominal pain, hematemesis, diarrhea, constipation. On arrival, patient's blood glucose was 907 mg/dL, anion gap was unmeasurable, serum bicarbonate less than 5. He was acetone positive. Is also hyperkalemic with a potassium 6.6 which has come down to 5.7. Patient was started on the DKA protocol and currently has insulin infusing at 7 units per hour. Normal saline is infusing at 200 ML's per hour. He is currently laying on his side, on room air, in no acute distress. His nausea and vomiting seems to have subsided. Blood pressure is normotensive. He is tachycardic due to his acidosis. He is still tachypneic with kussmaul respirations. Most recent BMP shows a sodium 138, potassium 5.7, chloride 97, serum bicarb less than 5, BUN 30, creatinine 1.47, glucose is currently down to 417. Patient does have a component of acute kidney injury. Lactic acid level was 6.1 on arrival and is down to 4.9. He was bolused with 2 L of normal saline on arrival. CBC on arrival is a WBC count of 35.6, hemoglobin 14.7, hematocrit 48, platelets 461. Patient will be monitored in the intensive care unit once bed available. Review of Systems REVIEW OF SYSTEMS: CONSTITUTIONAL: Denies any recent significant weight loss or weight gain. EYES: Denies change in vision. EARS, NOSE, MOUTH, THROAT: Denies headaches, denies sore throat. CARDIOVASCULAR: Denies chest pain, palpitations or syncopal episodes. RESPIRATORY: Denies shortness of breath, cough, congestion or hemoptysis. GASTROINTESTINAL: Denies change in appetite, abdominal pain, or diarrhea. A dmits nausea and vomiting GENITOURINARY: Denies hematuria, denies infections. MUSKULOSKELETAL: Denies pain, denies swelling. INTEGUMENTARY: Denies rash, denies eczema. NEUROLOGICAL: Denies recent memory loss, no recent seizure activity. PSYCHIATRIC: Denies anxiety, denies depression. HEMATOLOGIC/LYMPHATIC: Denies anemia, denies enlarged lymph node Past Medical History Past Medical History: Asthma, Diabetes Mellitus, Neurologic Disorder, Skin D isorder Additional Past Medical History / Comment(s): IDDM type I, neuropathy bilateral feet, DKA, eczema. History of Any Multi-Drug Resistant Organisms: None Reported Past Surgical History: Adenoidectomy Additional Past Surgical History / Comment(s): 2002 Recent EGD- gastritis Past Anesthesia/Blood Transfusion Reactions: No Reported Reaction Past Psychological History: Anxiety, Depression Smoking Status: Former smoker Past Alcohol Use History: None Reported Past Drug Use History: None Reported - Past Family History Mother Family Medical History: CVA/TIA Additional Family Medical History / Comment(s): TIA Father Family Medical History: Hyperlipidemia, Hypertension Additional Family Medical History / Comment(s): . Medications and Allergies Home Medications Medication Instructions Recorded Confirmed Type Insulin Detemir (Levemir) [Levemir] 28 unit SQ DAILY@0700 30 Days #1 10/03/22 12/08/22 Rx each Gabapentin 600 mg PO TID 10/14/22 12/08/22 History Garza-[place] Ii Carbonate 150 mg PO BID 10/14/22 12/08/22 History Losartan [Cozaar] 50 mg PO DAILY 10/14/22 12/08/22 History buPROPion XL [Wellbutrin XL] 300 mg PO DAILY 10/14/22 12/08/22 History Mirtazapine [Remeron] 15 mg PO HS 10/28/22 12/08/22 History INSULIN ASPART (NovoLOG) [NovoLOG 7 unit SQ AC-TID 11/14/22 12/08/22 History (formulary)] Allergies Allergy/AdvReac Type Severity Reaction Status Date / Time No Known Allergies Allergy Verified 12/08/22 08:14 Physical Exam Vitals: Vital Signs Temp Pulse Resp BP Pulse Ox 12/16/22 04:00 120 H 26 H 111/69 97 12/16/22 03:00 122 H 22 111/85 98 12/16/22 02:17 97.6 F 128 H 18 111/85 98 Intake and Output 12/15/22 12/15/22 12/16/22 14:59 22:59 06:59 Other: Weight 68.039 kg GENERAL EXAM: Alert, 27-year-old white male, fairly comfortable in no apparent distress. HEAD: Normocephalic and atraumatic EYES: Normal reaction of pupils, equal size. NOSE: Clear with pink turbinates. THROAT: No erythema or exudates. NECK: No masses, no JVD. CHEST: No chest wall deformity. LUNGS: Equal air entry with no crackles, wheeze, rhonchi or dullness. On room air. Kussmaul respirations noted CVS: S1 and S2 normal with no audible murmur, regular rhythm. No extra heart sounds. Tachycardic with a heart rate of 120 bpm, appears normal sinus on the bedside monitor ABDOMEN: No hepatosplenomegaly, active bowel sounds, no guarding or rigidity. SPINE: No scoliosis or deformity SKIN: No rashes CENTRAL NERVOUS SYSTEM: No focal deficits, tone is normal in all 4 extremities. EXTREMITIES: There is no peripheral edema, clubbing, or cyanosis. Peripheral pulses are intact. Results - Laboratory Findings CBC and BMP: 12/16/22 02:23 12/16/22 03:45 Abnormal lab findings: Abnormal Labs 12/16/22 12/16/22 12/16/22 02:15 02:23 02:23 WBC 35.6 H MCV 106.0 H D MCHC 30.6 L Plt Count 461 H Neutrophils # 30.5 H Monocytes # 1.2 H VBG pH VBG pCO2 VBG HCO3 Sodium 133 L Potassium 6.6 H* Chloride 89 L Carbon Dioxide <5 L* BUN 30 H Creatinine 1.62 H Glucose 907 H* POC Glucose (mg/dL) >600 H Plasma Lactic Acid Len Magnesium 2.4 H Urine Glucose (UA) Urine Ketones 12/16/22 12/16/22 12/16/22 02:23 02:23 03:45 WBC MCV MCHC Plt Count Neutrophils # Monocytes # VBG pH 7.05 L* VBG pCO2 15 L* VBG HCO3 4 L* Sodium Potassium Chloride Carbon Dioxide BUN Creatinine Glucose POC Glucose (mg/dL) Plasma Lactic Acid Len 6.1 H* Magnesium Urine Glucose (UA) 4+ H Urine Ketones 4+ H 12/16/22 12/16/22 12/16/22 03:45 03:45 03:52 WBC MCV MCHC Plt Count Neutrophils # Monocytes # VBG pH VBG pCO2 VBG HCO3 Sodium Potassium 5.7 H Chloride 97 L Carbon Dioxide <5 L* BUN 30 H Creatinine 1.47 H Glucose 803 H* POC Glucose (mg/dL) >600 H Plasma Lactic Acid Len 4.9 H* Magnesium Urine Glucose (UA) Urine Ketones 12/16/22 05:50 WBC MCV MCHC Plt Count Neutrophils # Monocytes # VBG pH VBG pCO2 VBG HCO3 Sodium Potassium Chloride Carbon Dioxide BUN Creatinine Glucose POC Glucose (mg/dL) 417 H Plasma Lactic Acid Len Magnesium Urine Glucose (UA) Urine Ketones Assessment and Plan Assessment: Acute diabetic ketoacidosis, likely secondary to medication noncompliance. Patient has had multiple episodes of DKA, last hospitalized on 12/08/2022, and left AGAINST MEDICAL ADVICE on 12/10/2022. Anion gap metabolic acidosis, secondary to above Type 1 diabetes mellitus, with poor compliance. Acute kidney injury, likely prerenal related to dehydration Hyperkalemia, improving with correction of DKA Acute leukocytosis, not felt to be infectious Diabetic neuropathy History of major depression, denies any current suicidal ideation Chronic marijuana use Chronic ongoing nicotine dependence Plan: Patient's medications and labs reviewed Continue DKA protocol Fluid resuscitated with 2 L normal saline bolus in the emergency room Hyperkalemia is correcting with DKA treatment Continue electrolytes every 4 hours Patient will be admitted to the intensive care unit, and downgraded once DKA resolves I have personally seen and examined the patient, performed the documentation and the assessment and plan as written. Number of minutes spent on the visit:20 Time with Patient: Greater than 30
[2022-12-16 06:53] LABS: Glucose,Whole Blood 299 mg/dL (70-110)
[2022-12-16 07:17] LABS: Glucose,Whole Blood 284 mg/dL (70-110)
[2022-12-16] MEDS: D5-0.45% NACL WITH KCL 20MEQ/L 1,000 ML IV SCH ×3 (07:31→19:46)
[2022-12-16 08:35] LABS: Glucose,Whole Blood 240 mg/dL (70-110)
[2022-12-16 08:39] LABS: African American GFR (CKD) >90 (>60 ml/min/1.73 sqM); Anion Gap 26 mmol/L; Blood Urea Nitrogen 27 mg/dL (9-20); Chloride 112 mmol/L (98-107); Glucose 253 mg/dL (74-99); Non-African American GFR(CKD) >90 (>60 ml/min/1.73 sqM); Potassium 4.9 mmol/L (3.5-5.1); Sodium 146 mmol/L (137-145)
[2022-12-16 08:43] LABS: Carbon Dioxide 8 mmol/L (22-30)
[2022-12-16 09:03] LABS: Glucose,Whole Blood 243 mg/dL (70-110)
[2022-12-16 09:56] LABS: Glucose,Whole Blood 203 mg/dL (70-110)
[2022-12-16] MEDS: ONDANSETRON 4 MG/2 ML VIAL IVP PRN ×2 (10:00→17:46)
[2022-12-16 10:56] LABS: Glucose,Whole Blood 173 mg/dL (70-110)
[2022-12-16 12:02] LABS: Glucose,Whole Blood 151 mg/dL (70-110)
[2022-12-16 12:16] LABS: African American GFR (CKD) >90 (>60 ml/min/1.73 sqM); Anion Gap 18 mmol/L; Blood Urea Nitrogen 25 mg/dL (9-20); Carbon Dioxide 12 mmol/L (22-30); Chloride 114 mmol/L (98-107); Glucose 161 mg/dL (74-99); Non-African American GFR(CKD) >90 (>60 ml/min/1.73 sqM); Potassium 4.6 mmol/L (3.5-5.1); Sodium 144 mmol/L (137-145)
[2022-12-16 13:03] LABS: Glucose,Whole Blood 129 mg/dL (70-110)
[2022-12-16 14:15] LABS: Glucose,Whole Blood 139 mg/dL (70-110)
[2022-12-16 15:04] LABS: Glucose,Whole Blood 147 mg/dL (70-110)
[2022-12-16 16:04] LABS: Glucose,Whole Blood 139 mg/dL (70-110)
[2022-12-16 16:09] LABS: ALT 20 U/L (4-49); AST 18 U/L (17-59); African American GFR (CKD) >90 (>60 ml/min/1.73 sqM); Albumin 4.1 g/dL (3.5-5.0); Alkaline Phosphatase 89 U/L (38-126); Anion Gap 15 mmol/L; Blood Urea Nitrogen 23 mg/dL (9-20); Calcium 8.5 mg/dL (8.4-10.2); Carbon Dioxide 17 mmol/L (22-30); Chloride 111 mmol/L (98-107); Glucose 133 mg/dL (74-99); Non-African American GFR(CKD) >90 (>60 ml/min/1.73 sqM); Phosphorus 2.6 mg/dL (2.5-4.5); Potassium 4.5 mmol/L (3.5-5.1); Sodium 143 mmol/L (137-145); Total Bilirubin 0.4 mg/dL (0.2-1.3); Total Protein 6.7 g/dL (6.3-8.2)
[2022-12-16 17:28] LABS: Glucose,Whole Blood 148 mg/dL (70-110)
[2022-12-16 17:59] LABS: Glucose,Whole Blood 194 mg/dL (70-110)
[2022-12-16 19:07] LABS: Glucose,Whole Blood 272 mg/dL (70-110)
[2022-12-16 20:11] LABS: Glucose,Whole Blood 228 mg/dL (70-110)
[2022-12-16] MEDS ORDERED: METOCLOPRAMIDE 5 MG/ML 2 ML VIAL IVP PRN (20:11)
[2022-12-16 20:20] LABS: ALT 19 U/L (4-49); AST 19 U/L (17-59); African American GFR (CKD) >90 (>60 ml/min/1.73 sqM); Alkaline Phosphatase 75 U/L (38-126); Anion Gap 17 mmol/L; Blood Urea Nitrogen 20 mg/dL (9-20); Calcium 8.5 mg/dL (8.4-10.2); Carbon Dioxide 14 mmol/L (22-30); Chloride 109 mmol/L (98-107); Glucose 224 mg/dL (74-99); Non-African American GFR(CKD) >90 (>60 ml/min/1.73 sqM); Phosphorus 3.1 mg/dL (2.5-4.5); Potassium 4.8 mmol/L (3.5-5.1); Sodium 140 mmol/L (137-145); Total Bilirubin 0.5 mg/dL (0.2-1.3); Total Protein 6.6 g/dL (6.3-8.2)
[2022-12-16 21:01] LABS: Glucose,Whole Blood 202 mg/dL (70-110)
[2022-12-16 22:06] LABS: Glucose,Whole Blood 213 mg/dL (70-110)
[2022-12-16 23:04] LABS: Glucose,Whole Blood 197 mg/dL (70-110)
[2022-12-17 00:02] LABS: Glucose,Whole Blood 215 mg/dL (70-110)
[2022-12-17 01:05] LABS: African American GFR (CKD) >90 (>60 ml/min/1.73 sqM); Anion Gap 12 mmol/L; Blood Urea Nitrogen 18 mg/dL (9-20); Carbon Dioxide 17 mmol/L (22-30); Chloride 107 mmol/L (98-107); Glucose 205 mg/dL (74-99); Non-African American GFR(CKD) >90 (>60 ml/min/1.73 sqM); Potassium 4.3 mmol/L (3.5-5.1); Sodium 136 mmol/L (137-145)
[2022-12-17 01:08] LABS: Glucose,Whole Blood 194 mg/dL (70-110)
--- NOTE | 2022-12-17 01:54 | HP ---
HISTORY AND PHYSICAL CHIEF COMPLAINT: Diabetic ketoacidosis. HISTORY OF PRESENT ILLNESS: This is another admission for this 27-year-old with type 1 insulin-dependent diabetes, who does not take his insulin and comes in DKA at least every week. Blood sugar was over 900 this time. REVIEW OF SYSTEMS: He is lethargic. PAST MEDICAL HISTORY, FAMILY HISTORY AND PERSONAL AND SOCIAL HISTORIES: All unchanged. PHYSICAL EXAMINATION: VITAL SIGNS: Blood pressure is 103/55 with a pulse of 116, and respirations of 40. GENERAL: He appeared to be lethargic, dehydrated and asthenic. HEENT: Head, ears, eyes, nose, mouth and throat were normal. NECK: Supple. CHEST: Clear. CARDIAC: Demonstrates sinus tachycardia. ABDOMEN: Flat, soft, nontender. EXTREMITIES: Normal. MUSCULOSKELETAL: Muscle bulk and tone are poor. NEUROLOGIC: He is lethargic. IMPRESSION: 1. Diabetic ketoacidosis. 2. Dehydration. 3. Major depression. 4. Gastroparesis. 5. Peripheral neuropathy. 6. Noncompliant patient. PLAN: ICU management for his DKA. MMODL / IJN: [id number] /
[2022-12-17 01:58] LABS: Glucose,Whole Blood 199 mg/dL (70-110)
[2022-12-17 03:11] LABS: Glucose,Whole Blood 178 mg/dL (70-110)
[2022-12-17] MEDS: SODIUM CHLORIDE 0.9% 1,000 ML IV SCH ×2 (03:16→11:15)
[2022-12-17] MEDS: D5-0.45% NACL WITH KCL 20MEQ/L 1,000 ML IV SCH (03:17)
[2022-12-17 04:02] LABS: Glucose,Whole Blood 171 mg/dL (70-110)
[2022-12-17 04:42] LABS: African American GFR (CKD) >90 (>60 ml/min/1.73 sqM); Anion Gap 8 mmol/L; Blood Urea Nitrogen 16 mg/dL (9-20); Calcium 8.1 mg/dL (8.4-10.2); Carbon Dioxide 21 mmol/L (22-30); Chloride 105 mmol/L (98-107); Glucose 169 mg/dL (74-99); Non-African American GFR(CKD) >90 (>60 ml/min/1.73 sqM); Sodium 134 mmol/L (137-145)
[2022-12-17 05:07] LABS: Glucose,Whole Blood 156 mg/dL (70-110)
[2022-12-17 06:10] LABS: Glucose,Whole Blood 182 mg/dL (70-110)
[2022-12-17] MEDS: INSULIN NPH 100 UNIT/ML 10 ML VIAL SQ ONE ×2 (06:26→06:32)
[2022-12-17] MEDS: INSULIN DETEMIR (LEVEMIR) 100 UNIT/ML SYR SQ SCH (06:26)
[2022-12-17 06:59] LABS: Glucose,Whole Blood 143 mg/dL (70-110)
[2022-12-17] MEDS: INSULIN ASPART (NovoLOG) 100 UNIT/ML VIAL SQ SCH ×7 (07:33→20:52)
[2022-12-17 09:01] LABS: Glucose,Whole Blood 154 mg/dL (70-110)
--- NOTE | 2022-12-17 09:08 | P.PN ---
Subjective Progress Note Date: 12/17/22 I am seeing this patient in new consultation today 12/16/2022 in the emergency room for acute diabetic ketoacidosis. Patient is a 27-year-old white male with past medical history significant for type 1 diabetes mellitus and frequent hospital admissions for DKA. Patient is a known history of medication n oncompliance. Patient was last admitted approximately 1 week ago on December 08, and he left AGAINST MEDICAL ADVICE on December 10. Patient states that he was having hyperglycemia at home, and then his condition worsened. He states that he was taking his insulin. Denies any infectious symptoms. He does have nausea and vomiting. No abdominal pain, hematemesis, diarrhea, constipation. On arrival, patient's blood glucose was 907 mg/dL, anion gap was unmeasurable, serum bicarbonate less than 5. He was acetone positive. Is also hyperkalemic with a potassium 6.6 which has come down to 5.7. Patient was started on the DKA protocol and currently has insulin infusing at 7 units per hour. Normal saline is infusing at 200 ML's per hour. He is currently laying on his side, on room air, in no acute distress. His nausea and vomiting seems to have subsided. Blood pressure is normotensive. He is tachycardic due to his acidosis. He is still tachypneic with kussmaul respirations. Most recent BMP shows a sodium 138, potassium 5.7, chloride 97, serum bicarb less than 5, BUN 30, creatinine 1.47, glucose is currently down to 417. Patient does have a component of acute kidney injury. Lactic acid level was 6.1 on arrival and is down to 4.9. He was bolused with 2 L of normal saline on arrival. CBC on arrival is a WBC count of 35.6, hemoglobin 14.7, hematocrit 48, platelets 461. Patient will be monitored in the intensive care unit once bed available. The patient is seen today 12/17/2022 in follow-up in the intensive care unit. He is currently awake and alert in no acute distress. Maintaining good O2 saturations in the 90s on room air. He's afebrile. Hemodynamically stable. Sodium 134. Potassium 4.0. Bicarb 21. Anion gap 8. BUN 16. Creatinine 0.60. Glucose 169. He's been transitioned to Levemir and NovoLog sliding scale. Objective - Vital Signs Vital signs: Vital Signs Temp 98.1 F 12/17/22 08:00 Pulse 96 12/17/22 08:00 Resp 15 12/17/22 08:00 BP 127/92 12/17/22 08:00 Pulse Ox 97 12/17/22 08:00 FiO2 Intake & Output 12/16/22 12/17/22 12/17/22 18:59 06:59 18:59 Intake Total 6552.142 2524.858 268.013 Output Total 850 1450 Balance 733.771 200.858 268.013 Weight 69.3 kg Intake: Intake, IV Titration 7703.091 5606.858 18.013 Amount D5-0.45% NaCl with KCl 1500 1650 20Meq/l 1,000 ml @ 150 mls/hr IV .[id number] [facility] Rx# :[id number] Insulin Regular 100 unit 83.771 0.858 18.013 In Sodium Chloride 0.9% 100 ml @ 0.1 UNITS/KG/HR 6.872 mls/hr IV .[id number] [facility] Rx#:[id number] Oral 250 Output: Urine 850 1450 Other: Voiding Method Urinal - Exam GENERAL EXAM: Awake, alert, thin 27-year-old male, on room air, comfortable in no apparent distress. HEAD: Normocephalic and atraumatic EYES: Normal reaction of pupils, equal size. NOSE: Clear with pink turbinates. THROAT: No erythema or exudates. NECK: No masses, no JVD. CHEST: No chest wall deformity. LUNGS: Equal air entry with no crackles, wheeze, rhonchi or dullness. CVS: S1 and S2 normal with no audible murmur, regular rhythm. No extra heart sounds. ABDOMEN: No hepatosplenomegaly, active bowel sounds, no guarding or rigidity. SPINE: No scoliosis or deformity SKIN: No rashes CENTRAL NERVOUS SYSTEM: No focal deficits, tone is normal in all 4 extremities. EXTREMITIES: There is no peripheral edema, clubbing, or cyanosis. Peripheral pulses are intact. - Labs CBC & Chem 7: 12/16/22 02:23 12/17/22 04:13 Labs: Abnormal Lab Results - Last 24 Hours (Table) 12/16/22 12/16/2212/16/23 Range/Units 09:02 09:55 10:55 Sodium (137-145) mmol/L Chloride (98-107) mmol/L Carbon Dioxide (22-30) mmol/L BUN (9-20) mg/dL Creatinine (0.66-1.25) mg/dL Glucose (74-99) mg/dL POC Glucose (mg/dL) 243 H 203 H 173 H (70-110) mg/dL Calcium (8.4-10.2) mg/dL Phosphorus (2.5-4.5) mg/dL 12/16/22 12/16/22 12/16/22 Range/Units 11:52 11:52 12:01 Sodium (137-145) mmol/L Chloride 114 H (98-107) mmol/L Carbon Dioxide 12 L (22-30) mmol/L BUN 25 H (9-20) mg/dL Creatinine (0.66-1.25) mg/dL Glucose 161 H (74-99) mg/dL POC Glucose (mg/dL) 151 H (70-110) mg/dL Calcium (8.4-10.2) mg/dL Phosphorus 2.4 L (2.5-4.5) mg/dL 12/16/22 12/16/22 12/16/22 Range/Units 13:01 14:13 15:03 Sodium (137-145) mmol/L Chloride (98-107) mmol/L Carbon Dioxide (22-30) mmol/L BUN (9-20) mg/dL Creatinine (0.66-1.25) mg/dL Glucose (74-99) mg/dL POC Glucose (mg/dL) 129 H 139 H 147 H (70-110) mg/dL Calcium (8.4-10.2) mg/dL Phosphorus (2.5-4.5) mg/dL 12/16/22 12/16/22 12/16/22 Range/Units 15:34 16:02 17:26 Sodium (137-145) mmol/L Chloride 111 H (98-107) mmol/L Carbon Dioxide 17 L (22-30) mmol/L BUN 23 H (9-20) mg/dL Creatinine (0.66-1.25) mg/dL Glucose 133 H (74-99) mg/dL POC Glucose (mg/dL) 139 H 148 H (70-110) mg/dL Calcium (8.4-10.2) mg/dL Phosphorus (2.5-4.5) mg/dL 12/16/22 12/16/22 12/16/22 Range/Units 17:57 19:06 19:48 Sodium (137-145) mmol/L Chloride 109 H (98-107) mmol/L Carbon Dioxide 14 L (22-30) mmol/L BUN (9-20) mg/dL Creatinine (0.66-1.25) mg/dL Glucose 224 H (74-99) mg/dL POC Glucose (mg/dL) 194 H 272 H (70-110) mg/dL Calcium (8.4-10.2) mg/dL Phosphorus (2.5-4.5) mg/dL 12/16/22 12/16/22 12/16/22 Range/Units 20:09 21:00 22:03 Sodium (137-145) mmol/L Chloride (98-107) mmol/L Carbon Dioxide (22-30) mmol/L BUN (9-20) mg/dL Creatinine (0.66-1.25) mg/dL Glucose (74-99) mg/dL POC Glucose (mg/dL) 228 H 202 H 213 H (70-110) mg/dL Calcium (8.4-10.2) mg/dL Phosphorus (2.5-4.5) mg/dL 12/16/22 12/17/22 12/17/22 Range/Units 23:02 00:00 00:34 Sodium 136 L (137-145) mmol/L Chloride (98-107) mmol/L Carbon Dioxide 17 L (22-30) mmol/L BUN (9-20) mg/dL Creatinine 0.61 L (0.66-1.25) mg/dL Glucose 205 H (74-99) mg/dL POC Glucose (mg/dL) 197 H 215 H (70-110) mg/dL Calcium (8.4-10.2) mg/dL Phosphorus (2.5-4.5) mg/dL 12/17/22 12/17/22 12/17/22 Range/Units 01:06 01:57 03:09 Sodium (137-145) mmol/L Chloride (98-107) mmol/L Carbon Dioxide (22-30) mmol/L BUN (9-20) mg/dL Creatinine (0.66-1.25) mg/dL Glucose (74-99) mg/dL POC Glucose (mg/dL) 194 H 199 H 178 H (70-110) mg/dL Calcium (8.4-10.2) mg/dL Phosphorus (2.5-4.5) mg/dL 12/17/22 12/17/22 12/17/22 Range/Units 04:00 04:13 05:06 Sodium 134 L (137-145) mmol/L Chloride (98-107) mmol/L Carbon Dioxide 21 L (22-30) mmol/L BUN (9-20) mg/dL Creatinine 0.60 L (0.66-1.25) mg/dL Glucose 169 H (74-99) mg/dL POC Glucose (mg/dL) 171 H 156 H (70-110) mg/dL Calcium 8.1 L (8.4-10.2) mg/dL Phosphorus (2.5-4.5) mg/dL 12/17/22 12/17/22 Range/Units 06:08 06:58 Sodium (137-145) mmol/L Chloride (98-107) mmol/L Carbon Dioxide (22-30) mmol/L BUN (9-20) mg/dL Creatinine (0.66-1.25) mg/dL Glucose (74-99) mg/dL POC Glucose (mg/dL) 182 H 143 H (70-110) mg/dL Calcium (8.4-10.2) mg/dL Phosphorus (2.5-4.5) mg/dL Assessment and Plan Assessment: Acute diabetic ketoacidosis, likely secondary to medication noncompliance. Patient has had multiple episodes of DKA, last hospitalized on 12/08/2022, and left AGAINST MEDICAL ADVICE on 12/10/2022. Anion gap metabolic acidosis, secondary to above Type 1 diabetes mellitus, with poor compliance. Acute kidney injury, likely prerenal related to dehydration Hyperkalemia, improving with correction of DKA Acute leukocytosis, not felt to be infectious Diabetic neuropathy History of major depression, denies any current suicidal ideation Chronic marijuana use Chronic ongoing nicotine dependence Plan: The patient was seen and evaluated Labs and medications reviewed Recovered from his DKA Transitioned to Levemir and NovoLog sliding scale To be transferred out of the ICU to regular medical floor today We will continue to follow I have personally seen and examined the patient, performed the documentation and the assessment and plan as written. Number of minutes spent on the visit: 10.
[2022-12-17] MEDS ORDERED: POTASSIUM CHLORIDE 20 MEQ in WATER FOR INJECTION 1 100ML.BAG IVPB STA (09:39)
[2022-12-17 12:12] LABS: Glucose,Whole Blood 57 mg/dL (70-110)
[2022-12-17] MEDS ORDERED: INSULIN ASPART (NovoLOG) 100 UNIT/ML VIAL SQ SCH (12:30)
[2022-12-17] MEDS ORDERED: MIDODRINE 5 MG TAB PO SCH (12:30)
[2022-12-17 12:56] LABS: Glucose,Whole Blood 131 mg/dL (70-110)
--- NOTE | 2022-12-17 13:04 | P.CN ---
Psychiatric Consult - . Consult date: 12/17/22 Consult:: 12/17/22 12:40 Psychiatry was consulted again for depression. As listed in previous psych consult notes, patient has a strong hx of multiple admissions in the past for DKA and non comnpliance with insulin and diabetic care. patient is well known to both medical provider and psychiatry. patients depression and non-compliance are very chronic issues and psychiatry has attempted several times in the past to coordinate care for him and get him connected with h/follow up and with housing however patient refuses time and time again. [employer] spoke with pts nurse today and explained the situation and obtained further information. Upon r eviewing the intake notes, speaking with the nurse and also reviewing nursing/triage notes, patient has NOT been endorsing current suicidal/homicidal thoughts and did not endorse depression on this visit or dispal any acute change in his psychiatric condition. no acute mental health issues appear to be present at this time and at this time mortgage or loan underwriter will again await primary provider to contact him directly with any acute mental health concerns about patient. 12/17/22 13:03
[2022-12-17 13:46] VITALS: BMI 20.1
[2022-12-17] MEDS: GABAPENTIN 300 MG CAP PO SCH ×2 (16:32→20:52)
[2022-12-17 17:31] LABS: Glucose,Whole Blood 136 mg/dL (70-110)
[2022-12-17 20:14] LABS: Glucose,Whole Blood 211 mg/dL (70-110)
[2022-12-17] MEDS: LITHIUM CARBONATE 150 MG CAP PO SCH (20:52)
[2022-12-17] MEDS: MIRTAZAPINE 15 MG TAB PO SCH (20:52)
--- NOTE | 2022-12-17 21:16 | PN ---
PROGRESS NOTE DATE OF SERVICE: 12/17/2022 LOCATION: 258. CHIEF COMPLAINT: DKA and intractable nausea and vomiting. HISTORY OF PRESENT ILLNESS: This gentleman is still nauseated and still vomiting. Blood sugars are coming down. Otherwise, there has been no change. PHYSICAL EXAMINATION: VITAL SIGNS: Normal. CHEST: Clear. CARDIAC: Normal. ABDOMEN: Flat, soft, and nontender. Bowel sounds are present. IMPRESSION: 1. Diabetic ketoacidosis. 2. Intractable nausea and vomiting. 3. Gastroparesis. 4. Depression. 5. Peripheral neuropathy. PLAN: 1. Continue with antiemetics, and Reglan has been added. 2. Psych consult because this gentleman's depressive and irrational behavior is growing into a greater and greater threat of his morbidity and mortality. MMODL / IJN: [id number] /
[2022-12-18 01:59] LABS: Glucose,Whole Blood 114 mg/dL (70-110)
[2022-12-18] MEDS: INSULIN ASPART (NovoLOG) 100 UNIT/ML VIAL SQ SCH ×8 (02:19→20:58)
[2022-12-18] MEDS ORDERED: INSULIN DETEMIR (LEVEMIR) 100 UNIT/ML SYR SQ SCH (07:00)
[2022-12-18 07:07] LABS: Glucose,Whole Blood 295 mg/dL (70-110)
[2022-12-18] MEDS: INSULIN DETEMIR (LEVEMIR) 100 UNIT/ML SYR SQ SCH (08:22)
[2022-12-18] MEDS: GABAPENTIN 300 MG CAP PO SCH ×3 (08:23→21:00)
[2022-12-18] MEDS: buPROPion XL 300 MG TAB.ER.24H PO SCH (08:24)
[2022-12-18] MEDS: LITHIUM CARBONATE 150 MG CAP PO SCH ×2 (08:24→21:00)
[2022-12-18] MEDS ORDERED: LOSARTAN 50 MG TAB PO SCH (09:00)
[2022-12-18 11:44] LABS: Glucose,Whole Blood 197 mg/dL (70-110)
--- NOTE | 2022-12-18 13:22 | P.PN ---
Subjective Progress Note Date: 12/18/22 I am seeing this patient in new consultation today 12/16/2022 in the emergency room for acute diabetic ketoacidosis. Patient is a 27-year-old white male with past medical history significant for type 1 diabetes mellitus and frequent hospital admissions for DKA. Patient is a known history of medication n oncompliance. Patient was last admitted approximately 1 week ago on December 08, and he left AGAINST MEDICAL ADVICE on December 10. Patient states that he was having hyperglycemia at home, and then his condition worsened. He states that he was taking his insulin. Denies any infectious symptoms. He does have nausea and vomiting. No abdominal pain, hematemesis, diarrhea, constipation. On arrival, patient's blood glucose was 907 mg/dL, anion gap was unmeasurable, serum bicarbonate less than 5. He was acetone positive. Is also hyperkalemic with a potassium 6.6 which has come down to 5.7. Patient was started on the DKA protocol and currently has insulin infusing at 7 units per hour. Normal saline is infusing at 200 ML's per hour. He is currently laying on his side, on room air, in no acute distress. His nausea and vomiting seems to have subsided. Blood pressure is normotensive. He is tachycardic due to his acidosis. He is still tachypneic with kussmaul respirations. Most recent BMP shows a sodium 138, potassium 5.7, chloride 97, serum bicarb less than 5, BUN 30, creatinine 1.47, glucose is currently down to 417. Patient does have a component of acute kidney injury. Lactic acid level was 6.1 on arrival and is down to 4.9. He was bolused with 2 L of normal saline on arrival. CBC on arrival is a WBC count of 35.6, hemoglobin 14.7, hematocrit 48, platelets 461. Patient will be monitored in the intensive care unit once bed available. The patient is seen today 12/17/2022 in follow-up in the intensive care unit. He is currently awake and alert in no acute distress. Maintaining good O2 saturations in the 90s on room air. He's afebrile. Hemodynamically stable. Sodium 134. Potassium 4.0. Bicarb 21. Anion gap 8. BUN 16. Creatinine 0.60. Glucose 169. He's been transitioned to Levemir and NovoLog sliding scale. The patient is seen today 12/18/2022 in follow-up in the regular medical floor. He is currently resting comfortably in bed. Awake and alert in no acute distress. He states he was tolerating small amount of breakfast. No nausea or vomiting. Current blood glucose 197. He is on Levemir 20 units daily along with NovoLog sliding scale. He is maintaining good O2 saturations up to 100% on room air. He's been afebrile. Objective - Vital Signs Vital signs: Vital Signs Temp 97.6 F 12/18/22 11:15 Pulse 81 12/18/22 11:15 Resp 17 12/18/22 11:15 BP 127/87 12/18/22 12:10 Pulse Ox 100 12/18/22 11:15 FiO2 Intake & Output 12/17/22 12/18/22 12/18/22 18:59 06:59 18:59 Intake Total 418.013 200 Balance 418.013 200 Weight 69.3 kg Intake: Intake, IV Titration 18.013 Amount Insulin Regular 100 unit 18.013 In Sodium Chloride 0.9% 100 ml @ 0.1 UNITS/KG/HR 6.872 mls/hr IV .[id number] YAEL Rx#:[id number] Oral 400 200 Other: Voiding Method Urinal Urinal Urinal # Voids 2 1 - Exam GENERAL EXAM: Awake, oriented 27-year-old male, on room air, comfortable in no apparent distress. HEAD: Normocephalic and atraumatic EYES: Normal reaction of pupils, equal size. NOSE: Clear with pink turbinates. THROAT: No erythema or exudates. NECK: No masses, no JVD. CHEST: No chest wall deformity. LUNGS: Equal air entry with no crackles, wheeze, rhonchi or dullness. CVS: S1 and S2 normal with no audible murmur, regular rhythm. No extra heart heena nds. ABDOMEN: No hepatosplenomegaly, active bowel sounds, no guarding or rigidity. SPINE: No scoliosis or deformity SKIN: No rashes CENTRAL NERVOUS SYSTEM: No focal deficits, tone is normal in all 4 extremities. EXTREMITIES: There is no peripheral edema, clubbing, or cyanosis. Peripheral pulses are intact. - Labs CBC & Chem 7: 12/16/22 02:23 12/17/22 04:13 Labs: Abnormal Lab Results - Last 24 Hours (Table) 12/17/22 12/17/22 12/18/22 Range/Units 17:30 20:12 01:57 POC Glucose (mg/dL) 136 H 211 H 114 H (70-110) mg/dL 12/18/22 12/18/22 Range/Units 07:06 11:43 POC Glucose (mg/dL) 295 H 197 H (70-110) mg/dL Assessment and Plan Assessment: Acute diabetic ketoacidosis, likely secondary to medication noncompliance. Patient has had multiple episodes of DKA, last hospitalized on 12/08/2022, and left AGAINST MEDICAL ADVICE on 12/10/2022. Anion gap metabolic acidosis, secondary to above, recovered Type 1 diabetes mellitus, with poor compliance. Acute kidney injury, likely prerenal related to dehydration, recovered Hyperkalemia, improving with correction of DKA Acute leukocytosis, not felt to be infectious Diabetic neuropathy History of major depression, denies any current suicidal ideation Chronic marijuana use Chronic ongoing nicotine dependence Plan: The patient was seen and evaluated Labs and medications reviewed Stable and on room air Transitioned to Levemir and NovoLog sliding scale Psychiatry consult appreciated Cleared for discharge from the pulmonary/critical care standpoint I have personally seen and examined the patient, performed the documentation and the assessment and plan as written. Number of minutes spent on the visit: 10.
[2022-12-18] MEDS ORDERED: LOSARTAN 50 MG TAB PO ONE (16:15)
[2022-12-18 16:46] LABS: Glucose,Whole Blood 75 mg/dL (70-110)
[2022-12-18 18:20] LABS: ALT 24 U/L (4-49); AST 31 U/L (17-59); African American GFR (CKD) >90 (>60 ml/min/1.73 sqM); Albumin 3.6 g/dL (3.5-5.0); Albumin/Globulin Ratio 1.3; Alkaline Phosphatase 76 U/L (38-126); Anion Gap 7 mmol/L; Blood Urea Nitrogen 9 mg/dL (9-20); Calcium 8.7 mg/dL (8.4-10.2); Carbon Dioxide 31 mmol/L (22-30); Chloride 102 mmol/L (98-107); Globulin 2.7 g/dL; Glucose 70 mg/dL (74-99); Non-African American GFR(CKD) >90 (>60 ml/min/1.73 sqM); Potassium 3.7 mmol/L (3.5-5.1); Sodium 140 mmol/L (137-145); Total Bilirubin 0.4 mg/dL (0.2-1.3); Total Protein 6.3 g/dL (6.3-8.2)
[2022-12-18 19:52] LABS: Glucose,Whole Blood 139 mg/dL (70-110)
--- NOTE | 2022-12-18 20:36 | PN ---
PROGRESS NOTE DATE OF SERVICE: 12/18/2022 CHIEF COMPLAINT: DKA and intractable nausea and vomiting with hypertension. HISTORY OF PRESENT ILLNESS: This gentleman is doing fine and feeling fine. He has no shortness of breath, headache, etc. PHYSICAL EXAMINATION: CHEST: Clear. CARDIAC: Normal. ABDOMEN: Soft and nontender. VITAL SIGNS: Blood pressure is elevated, and his Cozaar will be increased. IMPRESSION: 1. Hypertension. 2. Diabetic ketoacidosis. 3. Intractable vomiting. 4. Gastroparesis. 5. Type 1 insulin-dependent diabetes mellitus. 6. Peripheral neuropathy. PLAN: Increase Cozaar from 50 to 100 mg once a day. MMODL / IJN: [id number] /
[2022-12-18] MEDS: MIRTAZAPINE 15 MG TAB PO SCH (21:00)
[2022-12-19 01:49] LABS: Glucose,Whole Blood 242 mg/dL (70-110)
[2022-12-19] MEDS: INSULIN ASPART (NovoLOG) 100 UNIT/ML VIAL SQ SCH ×5 (01:57→12:56)
[2022-12-19 07:12] LABS: Glucose,Whole Blood 338 mg/dL (70-110)
[2022-12-19] MEDS ORDERED: LOSARTAN 50 MG TAB PO SCH (09:00)
[2022-12-19] MEDS: INSULIN DETEMIR (LEVEMIR) 100 UNIT/ML SYR SQ SCH (09:24)
[2022-12-19] MEDS: GABAPENTIN 300 MG CAP PO SCH (09:25)
[2022-12-19] MEDS: LITHIUM CARBONATE 150 MG CAP PO SCH (09:25)
[2022-12-19] MEDS: buPROPion XL 300 MG TAB.ER.24H PO SCH (09:26)
[2022-12-19 10:08] VITALS: RESP 18; TEMP 97.7
[2022-12-19 10:09] VITALS: BP 177/116; PULSE 69
[2022-12-19 11:55] LABS: Glucose,Whole Blood 246 mg/dL (70-110)
--- NOTE | 2022-12-20 01:55 | DS ---
DISCHARGE SUMMARY CHIEF COMPLAINT: DKA. HISTORY OF PRESENT ILLNESS AND PHYSICAL EXAM: Details of this man's history and physical can be found in the initial workup. LABORATORY STUDIES: While he is in the hospital, he had laboratory studies, details of which can be found in the laboratory section of his chart. COURSE IN HOSPITAL: After admission, he was placed on bedrest, started on intravenous fluids and DKA protocol. He had intractable nausea and vomiting for day or 2 and this subsided. He is doing well, but his blood pressure was elevating, which has not been a problem for him in the past. Cozaar was increased to 100 mg and would drop to normal and then go quite high. This was being watched and then he suddenly signed out against medical advice on the . FINAL DIAGNOSES: 1. Diabetic ketoacidosis. 2. Uncontrolled hypertension. 3. Dehydration. 4. Gastroparesis. 5. Peripheral neuropathy. 6. Noncompliant individual. 7. Type 1 insulin-dependent diabetes mellitus. 8. Depression. OPERATIONS: None. CONSULTATIONS: Psychiatry. He is improved. MMODL / IJN: [id number] /
== END 2022-12-19 13:15 | disposition left against medical advice (07) | DRG 420 ==
LOC: EC 02:10 → 2SICU 04:45 → 5NMEDONC 12-17 11:07
PROVIDERS: ADMIT Family Medicine; ATTEND Family Medicine
DX: E10.10 Type 1 diabetes mellitus with ketoacidosis without coma (principal); N17.9 Acute kidney failure, unspecified; E10.43 Type 1 diabetes mellitus with diabetic autonomic (poly)neuropathy; K31.84 Gastroparesis; I10 Essential (primary) hypertension; E10.42 Type 1 diabetes mellitus with diabetic polyneuropathy; E87.5 Hyperkalemia; D72.829 Elevated white blood cell count, unspecified; F32.9 Major depressive disorder, single episode, unspecified; F17.200 Nicotine dependence, unspecified, uncomplicated; J45.909 Unspecified asthma, uncomplicated; F41.9 Anxiety disorder, unspecified; F12.90 Cannabis use, unspecified, uncomplicated; E86.0 Dehydration; T38.3X6A Underdosing of insulin and oral hypoglycemic [antidiabetic] drugs, initial encounter; Z91.128 Patient's intentional underdosing of medication regimen for other reason; Z79.899 Other long term (current) drug therapy; Z79.4 Long term (current) use of insulin
CPT/HCPCS: 36415; 80048; 80051; 80053; 81003; 82009; 82565; 82803; 82947; 83605; 83735; 84100; 84520; 85025; 93005; 96360; 96361; 99291

== ENCOUNTER 2022-12-21 08:12 | Inpatient (IN) | payer OTHER ==
[2022-12-21] MEDS ORDERED: SODIUM CHLORIDE 0.9% 1,000 ML IV STA ×2 (08:19)
[2022-12-21] MEDS ORDERED: ONDANSETRON 4 MG/2 ML VIAL IVP STA (08:20)
[2022-12-21 08:26] LABS: Glucose,Whole Blood 576 mg/dL (70-110)
--- NOTE | 2022-12-21 08:27 | ED ---
Nausea/Vomiting/Diarrhea HPI - General Chief complaint: Nausea/Vomiting/Diarrhea Stated complaint: Vomiting Time Seen by Provider: 12/21/22 08:12 Source: patient, EMS, RN notes reviewed, old records reviewed Mode of arrival: EMS Limitations: no limitations - History of Present Illness Initial comments: 27-year-old male with a history of type 1 diabetes neuropathy hypertension and depression who was just discharged 2 days ago from this facility after an admission for treatment DKA and hypertension. He states he started developing nausea vomiting last evening and is been persistent throughout the morning. EMS was called he was found have a blood glucose level of greater than 500. He is actively nauseated upon arrival in emergency department. No overt fevers. This is similar to previous presentations. MD complaint: nausea, vomiting, other - Related Data Home Medications Medication Instructions Recorded Confirmed Gabapentin 600 mg PO TID 10/14/22 12/16/22 [place] Carbonate 150 mg PO BID 10/14/22 12/16/22 Losartan [Cozaar] 50 mg PO DAILY 10/14/22 12/16/22 buPROPion XL [Wellbutrin XL] 300 mg PO DAILY 10/14/22 12/16/22 Mirtazapine [Remeron] 15 mg PO HS 10/28/22 12/16/22 INSULIN ASPART (NovoLOG) [NovoLOG 7 unit SQ AC-TID 11/14/22 12/16/22 (formulary)] Previous Rx's Medication Instructions Recorded Insulin Detemir (Levemir) [Levemir] 28 unit SQ DAILY@0700 30 Days #1 10/03/22 each Allergies Allergy/AdvReac Type Severity Reaction Status Date / Time No Known Allergies Allergy Verified 12/16/22 06:37 Review of Systems ROS Statement: Those systems with pertinent positive or pertinent negative responses have been documented in the HPI. ROS Other: All systems not noted in ROS Statement are negative. Past Medical History Past Medical History: Asthma, Diabetes Mellitus, Neurologic Disorder, Skin Disorder Additional Past Medical History / Comment(s): IDDM type I, neuropathy bilateral feet, DKA, eczema. History of Any Multi-Drug Resistant Organisms: None Reported Past Surgical History: Adenoidectomy Additional Past Surgical History / Comment(s): 2002 Recent EGD- gastritis Past Anesthesia/Blood Transfusion Reactions: No Reported Reaction Past Psychological History: Anxiety, Depression Smoking Status: Former smoker Past Alcohol Use History: None Reported Past Drug Use History: None Reported - Past Family History Mother Family Medical History: CVA/TIA Additional Family Medical History / Comment(s): TIA Father Family Medical History: Hyperlipidemia, Hypertension Additional Family Medical History / Comment(s): . General Exam - General Exam Comments Initial Comments: This is a well-developed thin appearing male who is awake alert oriented 4 Limitations: no limitations General appearance: alert, anxious Head exam: Present: atraumatic, normocephalic, normal inspection Eye exam: Present: normal appearance, PERRL, EOMI. Absent: scleral icterus, conjunctival injection, periorbital swelling ENT exam: Present: mucous membranes dry Neck exam: Present: normal inspection, full ROM, other (No stridor JVD or bruits). Absent: tenderness, meningismus, lymphadenopathy Respiratory exam: Present: normal lung sounds bilaterally. Absent: respiratory distress, wheezes, rales, rhonchi, stridor Cardiovascular Exam: Present: normal rhythm, tachycardia, normal heart sounds. Absent: systolic murmur, diastolic murmur, rubs, gallop, clicks GI/Abdominal exam: Present: soft, normal bowel sounds. Absent: distended, tenderness, guarding, rebound, rigid Extremities exam: Present: normal inspection, full ROM, normal capillary refill. Absent: tenderness, pedal edema, joint swelling, calf tenderness Back exam: Present: normal inspection Neurological exam: Present: alert, oriented X3, CN II-XII intact Psychiatric exam: Present: normal affect, normal mood Skin exam: Present: warm, dry, intact, pallor. Absent: rash Course Vital Signs 12/21/22 08:19 Temperature 97.3 F L Pulse Rate 113 H Respiratory 18 Rate Blood Pressure 136/98 O2 Sat by Pulse 100 Oximetry - Reevaluation(s) Reevaluation #1: 12/21/22 10:34 Reevaluation patient finds he is resting more comfortably he still tachycardic at 130 bpm. I did discuss case Dr. Villa who is covering Dr. Valenzuela the patient will be admitted Medical Decision Making - Medical Decision Making The patient did refuse x-rays. I did discuss case with Dr. Villa as well as Dr. Gonzalez patient be admitted to the ICU diagnosis of diabetic ketoacidosisWas pt. sent in by a medical professional or institution (Dr., PA, INDUSTRIAL EDITOR, urgent care, hospital, or residential...) When possible be specific @ -No Did you speak to anyone other than the patient for history (EMS, parent, family, police, friend...)? What history was obtained from this source @ -EMS personnel Did you review nursing and triage notes (agree or disagree)? Why? @ -I reviewed and agree with nursing and triage notes Were old charts reviewed (outside hosp., previous admission, EMS record, old EKG, old radiological studies, urgent care reports/EKG's, residential records)? Report findings @ -Most recent old charts were reviewed Differential Diagnosis (chest pain, altered mental status, abdominal pain women, abdominal pain men, vaginal bleeding, weakness, fever, dyspnea, syncope, headache, dizziness, GI bleed, back pain, seizure, CVA, palpatations, mental health, musculoskeletal)? @ -Gastroenteritis, DKA EKG interpreted by me (3pts min.). @ -As above, sinus tachycardia rate 131. Interval 138 QRS duration 98 QT since QTC 305/382) ventricular hypertrophy nonspecific anterolateral lateral conf iguration X-rays interpreted by me (1pt min.). @ -None done CT interpreted by me (1pt min.). @ -None done U/S interpreted by me (1pt. min.). @ -None done What testing was considered but not performed or refused? (CT, X-rays, U/S, labs)? Why? @ -Patient refuses x-rays What meds were considered but not given or refused? Why? @ -None Did you discuss the management of the patient with other professionals (professionals i.e. JAS Lucero, INDUSTRIAL EDITOR, lab, RT, psych nurse, social work job titles, golf sales manager, teacher, ambulance officer, outsole caser)? Give summary @ -Drs. Villa and Dr. Gonzalez Was smoking cessation discussed for >3mins.? @ -No Was critical care preformed (if so, how long)? @ -39 minutes Were there social determinants of health that impacted care today? How? (Homelessness, low income, unemployed, alcoholism, drug addiction, transportation, low edu. Level, literacy, decrease access to med. care, prison, rehab)? @ -No Was there de-escalation of care discussed even if they declined (Discuss DNR or withdrawal of care, Hospice)? DNR status @ -No What co-morbidities impacted this encounter? (DM, HTN, Smoking, COPD, CAD, Cancer, CVA, ARF, Chemo, Hep., AIDS, mental health diagnosis, sleep apnea, morbid obesity)? @ -Type 1 diabetes, hypertension Was patient admitted / discharged? Hospital course, mention meds given and route, prescriptions, significant lab abnormalities, going to OR and other pertinent info. @ -Patient was admitted to the ICU Undiagnosed new problem with uncertain prognosis? @ -No Drug Therapy requiring intensive monitoring for toxicity (Heparin, Nitro, Insulin, Cardizem)? @ -IV insulin Were any procedures done? @ -No Diagnosis/symptom? @ -DKA, tachycardia, dehydration Acute, or Chronic, or Acute on Chronic? @ -Acute on chronic Uncomplicated (without systemic symptoms) or Complicated (systemic symptoms)? @ -default Side effects of treatment? @ -No Exacerbation, Progression, or Severe Exacerbation? @ -Severe exacerbation Poses a threat to life or bodily function? How? (Chest pain, USA, NC, pneumonia, PE, COPD, DKA, ARF, appy, cholecystitis, CVA, Diverticulitis, Homicidal, Suicidal, threat to staff... and all critical care pts) @ -Yes DKA - Lab Data Result diagrams: 12/21/22 08:27 12/21/22 08:27 Lab Results 12/21/22 12/21/22 12/21/22 Range/Units 08:24 08:27 08:27 WBC 13.5 H (3.8-10.6) k/uL RBC 4.29 L (4.30-5.90) m/uL Hgb 13.4 (13.0-17.5) gm/dL Hct 41.1 (39.0-53.0) % MCV 95.7 D (80.0-100.0) fL MCH 31.2 (25.0-35.0) pg MCHC 32.6 (31.0-37.0) g/dL RDW 14.2 (11.5-15.5) % Plt Count 342 (150-450) k/uL MPV 8.2 Neutrophils % 82 % Lymphocytes % 13 % Monocytes % 3 % Eosinophils % 0 % Basophils % 0 % Neutrophils # 11.1 H (1.3-7.7) k/uL Lymphocytes # 1.8 (1.0-4.8) k/uL Monocytes # 0.4 (0-1.0) k/uL Eosinophils # 0.0 (0-0.7) k/uL Basophils # 0.0 (0-0.2) k/uL Sodium 141 (137-145) mmol/L Potassium 4.6 (3.5-5.1) mmol/L Chloride 100 (98-107) mmol/L Carbon Dioxide 5 L* (22-30) mmol/L Anion Gap 36 mmol/L BUN 21 H (9-20) mg/dL Creatinine 0.93 (0.66-1.25) mg/dL Est GFR (CKD-EPI)AfAm >90 (>60 ml/min/1.73 sqM) Est GFR (CKD-EPI)NonAf >90 (>60 ml/min/1.73 sqM) Glucose 629 H* (74-99) mg/dL POC Glucose (mg/dL) 576 H (70-110) mg/dL POC Glu Ground Worker ID Belval, Clementina Plasma Lactic Acid Len (0.7-2.0) mmol/L Calcium 9.6 (8.4-10.2) mg/dL Magnesium 1.8 (1.6-2.3) mg/dL Total Bilirubin 1.0 (0.2-1.3) mg/dL AST 22 (17-59) U/L ALT 24 (4-49) U/L Alkaline Phosphatase 119 (38-126) U/L Creatine Kinase 45 L (55-170) U/L Troponin I (0.000-0.034) ng/mL Total Protein 7.0 (6.3-8.2) g/dL Albumin 4.5 (3.5-5.0) g/dL Lipase 94 (23-300) U/L Acetone, Qual Positive (Negative) 12/21/22 12/21/22 12/21/22 Range/Units 08:27 08:27 11:06 WBC (3.8-10.6) k/uL RBC (4.30-5.90) m/uL Hgb (13.0-17.5) gm/dL Hct (39.0-53.0) % MCV (80.0-100.0) fL MCH (25.0-35.0) pg MCHC (31.0-37.0) g/dL RDW (11.5-15.5) % Plt Count (150-450) k/uL MPV Neutrophils % % Lymphocytes % % Monocytes % % Eosinophils % % Basophils % % Neutrophils # (1.3-7.7) k/uL Lymphocytes # (1.0-4.8) k/uL Monocytes # (0-1.0) k/uL Eosinophils # (0-0.7) k/uL Basophils # (0-0.2) k/uL Sodium (137-145) mmol/L Potassium (3.5-5.1) mmol/L Chloride (98-107) mmol/L Carbon Dioxide (22-30) mmol/L Anion Gap mmol/L BUN (9-20) mg/dL Creatinine (0.66-1.25) mg/dL Est GFR (CKD-EPI)AfAm (>60 ml/min/1.73 sqM) Est GFR (CKD-EPI)NonAf (>60 ml/min/1.73 sqM) Glucose (74-99) mg/dL POC Glucose (mg/dL) 453 H (70-110) mg/dL POC Glu Ground Worker ID Belval, Clementina Plasma Lactic Acid Len 3.6 H* (0.7-2.0) mmol/L Calcium (8.4-10.2) mg/dL Magnesium (1.6-2.3) mg/dL Total Bilirubin (0.2-1.3) mg/dL AST (17-59) U/L ALT (4-49) U/L Alkaline Phosphatase (38-126) U/L Creatine Kinase (55-170) U/L Troponin I <0.012 (0.000-0.034) ng/mL Total Protein (6.3-8.2) g/dL Albumin (3.5-5.0) g/dL Lipase (23-300) U/L Acetone, Qual (Negative) Critical Care Time Critical Care Time: Yes Total Critical Care Time: 39 Disposition Clinical Impression: DKA (diabetic ketoacidosis), Dehydration, Tachycardia, Leukocytosis Disposition: ADMITTED IP TO THIS [facility] Condition: Critical Referrals: Brown Valenzuela MD [Primary Care Provider] - 1-2 days Decision Date: 12/21/22 Decision Time: 11:30
[2022-12-21 08:54] LABS: ALT 24 U/L (4-49); AST 22 U/L (17-59); African American GFR (CKD) >90 (>60 ml/min/1.73 sqM); Albumin 4.5 g/dL (3.5-5.0); Alkaline Phosphatase 119 U/L (38-126); Anion Gap 36 mmol/L; Blood Urea Nitrogen 21 mg/dL (9-20); Calcium 9.6 mg/dL (8.4-10.2); Chloride 100 mmol/L (98-107); Creatine Kinase 45 U/L (55-170); Lipase 94 U/L (23-300); Magnesium 1.8 mg/dL (1.6-2.3); Non-African American GFR(CKD) >90 (>60 ml/min/1.73 sqM); Potassium 4.6 mmol/L (3.5-5.1); Sodium 141 mmol/L (137-145)
[2022-12-21 09:20] LABS: Basophils % (A) 0 %; Eosinophils % (A) 0 %; HCT 41.1 % (39.0-53.0); HGB 13.4 gm/dL (13.0-17.5); Lymphocytes # (A) 1.8 k/uL (1.0-4.8); Lymphocytes % (A) 13 %; MCH 31.2 pg (25.0-35.0); MCHC 32.6 g/dL (31.0-37.0); Mean Platelet Volume 8.2; Monocytes # (A) 0.4 k/uL (0-1.0); Monocytes % (A) 3 %; Neutrophils # (A) 11.1 k/uL (1.3-7.7); Neutrophils % (A) 82 %; Platelet Count 342 k/uL (150-450); RBC 4.29 m/uL (4.30-5.90); RDW 14.2 % (11.5-15.5); WBC 13.5 k/uL (3.8-10.6)
[2022-12-21 09:21] LABS: MCV 95.7 fL (80.0-100.0)
[2022-12-21 09:35] LABS: Carbon Dioxide 5 mmol/L (22-30); Glucose 629 mg/dL (74-99)
[2022-12-21] MEDS ORDERED: Potassium Replacement Protocol 1 EACH MISC MISCELLANE PRN ×2 (09:49→11:38)
[2022-12-21] MEDS ORDERED: DEXTROSE 50% SYRINGE 50 ML IVP PRN ×2 (09:49)
[2022-12-21] MEDS ORDERED: INSULIN REGULAR BOLUS (FROM DRIP BAG) IV ONE (09:49)
[2022-12-21] MEDS ORDERED: Magnesium Replacement Protocol 1 EACH MISC MISCELLANE PRN ×2 (09:49→11:38)
[2022-12-21] MEDS ORDERED: SODIUM CHLORIDE 0.9% 1,000 ML IV SCH (10:00)
[2022-12-21] MEDS: INSULIN REGULAR 100 UNIT in SODIUM CHLORIDE 0.9% 100 ML IV SCH ×2 (10:10→23:32)
[2022-12-21 11:07] LABS: Glucose,Whole Blood 453 mg/dL (70-110)
[2022-12-21] MEDS: SODIUM CHLORIDE 0.9% 1,000 ML IV SCH ×2 (11:40→14:01)
[2022-12-21 12:04] LABS: Glucose,Whole Blood 322 mg/dL (70-110)
--- NOTE | 2022-12-21 12:19 | HP ---
HISTORY AND PHYSICAL CHIEF COMPLAINT: Nausea, vomiting, diabetic ketoacidosis. HISTORY OF PRESENT ILLNESS: This is a 27-year-old gentleman with a past medical history of diabetes mellitus type 1 with repeat episodes of DKA, was recently discharged, but currently the patient developed nausea, vomiting, and the patient came to [facility]. Blood sugar level was more than 500 per EMS. The patient had features of diabetic ketoacidosis. The patient was admitted for further evaluation and treatment. There was some blood tinge in the vomiting. Otherwise, no carly hemoptysis appreciated. The patient also had severe acidosis. The patient is stuporous. PAST MEDICAL HISTORY: Reviewed, include diabetes mellitus type 1, multiple DKAs, asthma. Rest of history and rest of chart are also reviewed. HOME MEDICATIONS: Reviewed, include insulin. Rest of the medications and doses are reviewed. They are not confirmed yet. ALLERGIES: Unknown. Family history, social history, and review of systems could not be taken because of change in mental status. PHYSICAL EXAMINATION: VITAL SIGNS: Pulse is 113, blood pressure n respirations 18. HEENT: Conjunctivae normal. Oral mucosa dry. NECK: No jugular venous distention. CARDIOVASCULAR: S1, S2. RESPIRATIONS: Clear to auscultation. ABDOMEN: Soft, nontender. NERVOUS SYSTEM: The patient is drowsy. SKIN: ntd LABORATORY DATA: Reviewed. ASSESSMENT: 1. Acute diabetic ketoacidosis, severe metabolic acidosis. 2. Change in mental status, acute metabolic encephalopathy. 3. Diabetes mellitus, type 1, uncontrolled, with hyperglycemia. 4. History of asthma. 5. History of peripheral neuropathy. 6. History of gastritis. 7. Anxiety, depression. RECOMMENDATIONS AND DISCUSSION: This is a 27-year-old gentleman, who presented with multiple complex medical issues. We will monitor the patient closely. The patient had features of severe diabetic ketoacidosis. We will initiate insulin drip and DKA protocol. Symptomatic treatment will be provided for possible gastritis. I would recommend repeat labs and monitor acidosis closely. There is no evidence of any obvious infection currently, but we will monitor. I would also recommend a chest x-ray to rule out the possibility of pneumonia. Flu testing also will be obtained. Home medications will be continued once they are confirmed as mentioned earlier. Prognosis is extremely guarded. Dr. Valenzuela will follow tomorrow. MMSHANEL / IJN: [id number] / [facility]
[2022-12-21 12:48] LABS: VBG PH 7.28 (7.31-7.41)
--- NOTE | 2022-12-21 13:03 | P.CNPUL ---
History of Present Illness Consult date: 12/21/22 Requesting physician: Brown Valenzuela Reason for consult: other (Critical care management) Chief complaint: Nausea, vomiting, abdominal pain History of present illness: This is a 27-year-old male with past medical history significant for type 1 diabetes mellitus and frequent hospital admissions for DKA. He has a known history of medication noncompliance. He has been here 5 times this month alone. He is seen again in the emergency department after developing nausea, vomiting and abdominal discomfort. His current glucose level was 629, bicarb of 5 and anion gap of 36. He is currently on insulin drip at 7.5 units per hour. Normal saline at 200 ML's per hour. He is currently resting on a stretcher. He is arousable but drifts off easily. Not answering many questions today. He is maintaining O2 saturations up to 100% on room air. He's been afebrile. Tachycardic. Blood pressure stable. White count 13.5. Hemoglobin 13.4. Weight 342. Sodium 141. Potassium 4.6. BUN 21. Creatinine 0.93. Acetone positive. Review of Systems REVIEW OF SYSTEMS: CONSTITUTIONAL: Denies any recent significant weight loss or weight gain. EYES: Denies change in vision. EARS, NOSE, MOUTH, THROAT: Denies headaches, denies sore throat. CARDIOVASCULAR: Denies chest pain, palpitations or syncopal episodes. RESPIRATORY: Denies shortness of breath, cough, congestion or hemoptysis. GASTROINTESTINAL: Positive for nausea, vomiting, abdominal pain. GENITOURINARY: Denies hematuria, denies infections. MUSKULOSKELETAL: Denies pain, denies swelling. INTEGUMENTARY: Denies rash, denies eczema. NEUROLOGICAL: Denies recent memory loss, no recent seizure activity. PSYCHIATRIC: Denies anxiety, denies depression. HEMATOLOGIC/LYMPHATIC: Denies anemia, denies enlarged lymph nodes. Past Medical History Past Medical History: Asthma, Diabetes Mellitus, Neurologic Disorder, Skin Disorder Additional Past Medical History / Comment(s): IDDM type I, neuropathy bilateral feet, DKA, eczema. History of Any Multi-Drug Resistant Organisms: None Reported Past Surgical History: Adenoidectomy Additional Past Surgical History / Comment(s): 2003 Recent EGD- gastritis Past Anesthesia/Blood Transfusion Reactions: No Reported Reaction Past Psychological History: Anxiety, Depression Smoking Status: Former smoker Past Alcohol Use History: None Reported Past Drug Use History: None Reported - Past Family History Mother Family Medical History: CVA/TIA Additional Family Medical History / Comment(s): TIA Father Family Medical History: Hyperlipidemia, Hypertension Additional Family Medical History / Comment(s): . Medications and Allergies Home Medications Medication Instructions Recorded Confirmed Type Insulin Detemir (Levemir) [Levemir] 28 unit SQ DAILY@0700 30 Days #1 10/03/22 12/21/22 Rx each Gabapentin 600 mg PO TID 10/14/22 12/21/22 History [place] Carbonate 150 mg PO BID 10/14/22 12/21/22 History Losartan [Cozaar] 50 mg PO DAILY 10/14/22 12/21/22 History buPROPion XL [Wellbutrin XL] 300 mg PO DAILY 10/14/22 12/21/22 History Mirtazapine [Remeron] 15 mg PO HS 10/28/22 12/21/22 History INSULIN ASPART (NovoLOG) [NovoLOG 7 unit SQ AC-TID 11/14/22 12/21/22 History (formulary)] Allergies Allergy/AdvReac Type Severity Reaction Status Date / Time No Known Allergies Allergy Verified 12/21/22 11:42 Physical Exam Vitals: Vital Signs Temp Pulse Resp BP Pulse Ox 12/21/22 08:19 97.3 F L 113 H 18 136/98 100 Intake and Output 12/20/22 12/21/22 12/21/22 22:59 06:59 14:59 Other: Weight 74.843 kg GENERAL EXAM: Arousable, thin, 27-year-old male, on room air, fairly comfortable in no apparent distress. HEAD: Normocephalic. EYES: Normal reaction of pupils, equal size. NOSE: Clear with pink turbinates. THROAT: No erythema or exudates. NECK: No masses, no JVD. CHEST: No chest wall deformity. LUNGS: Equal air entry with no crackles, wheeze, rhonchi or dullness. CVS: S1 and S2 normal with no audible murmur, regular rhythm. ABDOMEN: No hepatosplenomegaly, normal bowel sounds, no guarding or rigidity. SPINE: No scoliosis or deformity SKIN: No rashes CENTRAL NERVOUS SYSTEM: No focal deficits, tone is normal in all 4 extremities. EXTREMITIES: There is no peripheral edema. No clubbing, no cyanosis. Peripheral pulses are intact. Results - Laboratory Findings CBC and BMP: 12/21/22 08:27 12/21/22 08:27 Abnormal lab findings: Abnormal Labs 12/21/22 12/21/22 12/21/22 08:24 08:27 08:27 WBC 13.5 H RBC 4.29 L Neutrophils # 11.1 H Carbon Dioxide 5 L* BUN 21 H Glucose 629 H* POC Glucose (mg/dL) 576 H Plasma Lactic Acid Len Creatine Kinase 45 L 12/21/22 12/21/22 12/21/22 08:27 11:06 12:00 WBC RBC Neutrophils # Carbon Dioxide BUN Glucose POC Glucose (mg/dL) 453 H 322 H Plasma Lactic Acid Len 3.6 H* Creatine Kinase Assessment and Plan Assessment: Acute diabetic ketoacidosis, likely secondary to medication noncompliance. Patient has had multiple episodes of DKA, last discharged 12/19/2022 back here 2 days later. Anion gap metabolic acidosis, secondary to above Type 1 diabetes mellitus, with poor compliance. Acute leukocytosis, not felt to be infectious Diabetic neuropathy History of major depression, denies any current suicidal ideation Chronic marijuana use Chronic ongoing nicotine dependence Plan: The patient was seen and evaluated Medications and labs reviewed Continue with the DKA protocol Currently on insulin drip at 7.5 units per hour. Continue fluid resuscitation Continue to monitor glucose and electrolytes Admit to the intensive care unit We will continue to follow and make further recommendations based on his clinical status I have personally seen and examined the patient, performed the documentation and the assessment and plan as written. Number of minutes spent on the visit: 20.
[2022-12-21 13:05] LABS: African American GFR (CKD) >90 (>60 ml/min/1.73 sqM); Anion Gap 26 mmol/L; Blood Urea Nitrogen 22 mg/dL (9-20); Carbon Dioxide 11 mmol/L (22-30); Chloride 111 mmol/L (98-107); Glucose 270 mg/dL (74-99); Non-African American GFR(CKD) >90 (>60 ml/min/1.73 sqM); Potassium 4.4 mmol/L (3.5-5.1); Sodium 148 mmol/L (137-145)
[2022-12-21 13:10] LABS: Glucose,Whole Blood 180 mg/dL (70-110)
[2022-12-21] MEDS: D5-0.45% NACL WITH KCL 20MEQ/L 1,000 ML IV SCH ×3 (13:37→22:33)
[2022-12-21] MEDS: PANTOPRAZOLE 40 MG/10 ML VIAL IVP SCH ×2 (13:37→20:13)
[2022-12-21 13:59] LABS: Glucose,Whole Blood 132 mg/dL (70-110)
[2022-12-21 15:22] LABS: Glucose,Whole Blood 112 mg/dL (70-110)
[2022-12-21] MEDS ORDERED: METOCLOPRAMIDE 5 MG/ML 2 ML VIAL IVP PRN (15:51)
[2022-12-21 16:13] LABS: Glucose,Whole Blood 144 mg/dL (70-110)
[2022-12-21 16:55] LABS: African American GFR (CKD) >90 (>60 ml/min/1.73 sqM); Anion Gap 13 mmol/L; Blood Urea Nitrogen 22 mg/dL (9-20); Carbon Dioxide 21 mmol/L (22-30); Chloride 112 mmol/L (98-107); Glucose 150 mg/dL (74-99); Magnesium 2.2 mg/dL (1.6-2.3); Non-African American GFR(CKD) >90 (>60 ml/min/1.73 sqM); Phosphorus 2.4 mg/dL (2.5-4.5); Potassium 4.3 mmol/L (3.5-5.1); Sodium 146 mmol/L (137-145)
[2022-12-21 17:08] LABS: Glucose,Whole Blood 129 mg/dL (70-110)
[2022-12-21 18:14] LABS: Glucose,Whole Blood 179 mg/dL (70-110)
[2022-12-21 19:04] LABS: Glucose,Whole Blood 189 mg/dL (70-110)
[2022-12-21 20:02] LABS: Glucose,Whole Blood 187 mg/dL (70-110)
[2022-12-21] MEDS: HEPARIN SODIUM,PORCINE/PF 5,000 UNIT/0.5 ML SYRINGE SQ SCH ×2 (20:12→20:21)
[2022-12-21 20:26] LABS: African American GFR (CKD) >90 (>60 ml/min/1.73 sqM); Anion Gap 12 mmol/L; Blood Urea Nitrogen 21 mg/dL (9-20); Calcium 8.8 mg/dL (8.4-10.2); Carbon Dioxide 22 mmol/L (22-30); Chloride 108 mmol/L (98-107); Glucose 194 mg/dL (74-99); Magnesium 2.1 mg/dL (1.6-2.3); Non-African American GFR(CKD) >90 (>60 ml/min/1.73 sqM); Phosphorus 4.4 mg/dL (2.5-4.5); Potassium 4.6 mmol/L (3.5-5.1); Sodium 142 mmol/L (137-145)
[2022-12-21 21:02] LABS: Glucose,Whole Blood 231 mg/dL (70-110)
[2022-12-21 22:06] LABS: Glucose,Whole Blood 220 mg/dL (70-110)
[2022-12-21 23:14] LABS: Glucose,Whole Blood 239 mg/dL (70-110)
[2022-12-21 23:56] LABS: Glucose,Whole Blood 275 mg/dL (70-110)
[2022-12-22 00:44] LABS: African American GFR (CKD) >90 (>60 ml/min/1.73 sqM); Anion Gap 10 mmol/L; Blood Urea Nitrogen 22 mg/dL (9-20); Calcium 8.3 mg/dL (8.4-10.2); Carbon Dioxide 22 mmol/L (22-30); Chloride 106 mmol/L (98-107); Glucose 267 mg/dL (74-99); Magnesium 1.8 mg/dL (1.6-2.3); Non-African American GFR(CKD) >90 (>60 ml/min/1.73 sqM); Phosphorus 3.6 mg/dL (2.5-4.5); Potassium 4.2 mmol/L (3.5-5.1); Sodium 138 mmol/L (137-145)
[2022-12-22 00:59] LABS: Glucose,Whole Blood 222 mg/dL (70-110)
[2022-12-22] MEDS ORDERED: INSULIN NPH 100 UNIT/ML 10 ML VIAL SQ ONE ×2 (01:56)
[2022-12-22 02:04] LABS: Glucose,Whole Blood 189 mg/dL (70-110)
[2022-12-22] MEDS: INSULIN ASPART (NovoLOG) 100 UNIT/ML VIAL SQ SCH ×8 (02:33→21:33)
[2022-12-22 03:05] LABS: Glucose,Whole Blood 170 mg/dL (70-110)
[2022-12-22] MEDS ORDERED: D5-0.45% NACL WITH KCL 20MEQ/L 1,000 ML IV SCH (03:42)
[2022-12-22 04:07] LABS: Glucose,Whole Blood 133 mg/dL (70-110)
[2022-12-22 05:13] LABS: Glucose,Whole Blood 130 mg/dL (70-110)
[2022-12-22 06:33] LABS: Glucose,Whole Blood 129 mg/dL (70-110)
[2022-12-22 06:43] LABS: African American GFR (CKD) >90 (>60 ml/min/1.73 sqM); Anion Gap 7 mmol/L; Blood Urea Nitrogen 18 mg/dL (9-20); Calcium 8.1 mg/dL (8.4-10.2); Carbon Dioxide 23 mmol/L (22-30); Chloride 104 mmol/L (98-107); Glucose 133 mg/dL (74-99); Magnesium 1.8 mg/dL (1.6-2.3); Non-African American GFR(CKD) >90 (>60 ml/min/1.73 sqM); Potassium 3.7 mmol/L (3.5-5.1); Sodium 134 mmol/L (137-145)
[2022-12-22 07:00] LABS: Basophils # (A) 0.1 k/uL (0-0.2); Basophils % (A) 0 %; Eosinophils # (A) 0.3 k/uL (0-0.7); Eosinophils % (A) 1 %; HCT 34.4 % (39.0-53.0); HGB 11.6 gm/dL (13.0-17.5); Lymphocytes # (A) 2.8 k/uL (1.0-4.8); Lymphocytes % (A) 16 %; MCH 31.6 pg (25.0-35.0); MCHC 33.9 g/dL (31.0-37.0); MCV 93.4 fL (80.0-100.0); Mean Platelet Volume 7.5; Monocytes # (A) 0.9 k/uL (0-1.0); Monocytes % (A) 5 %; Neutrophils # (A) 13.1 k/uL (1.3-7.7); Neutrophils % (A) 76 %; Platelet Count 333 k/uL (150-450); RBC 3.68 m/uL (4.30-5.90); RDW 14.7 % (11.5-15.5); WBC 17.2 k/uL (3.8-10.6)
[2022-12-22] MEDS: INSULIN DETEMIR (LEVEMIR) 100 UNIT/ML SYR SQ SCH (07:06)
[2022-12-22] MEDS ORDERED: INSULIN ASPART (NovoLOG) 100 UNIT/ML VIAL SQ SCH (07:30)
[2022-12-22] MEDS: HEPARIN SODIUM,PORCINE/PF 5,000 UNIT/0.5 ML SYRINGE SQ SCH ×2 (08:04→21:33)
[2022-12-22 08:39] LABS: African American GFR (CKD) >90 (>60 ml/min/1.73 sqM); Anion Gap 10 mmol/L; Blood Urea Nitrogen 17 mg/dL (9-20); Carbon Dioxide 21 mmol/L (22-30); Chloride 99 mmol/L (98-107); Glucose 276 mg/dL (74-99); Magnesium 1.8 mg/dL (1.6-2.3); Non-African American GFR(CKD) >90 (>60 ml/min/1.73 sqM); Phosphorus 2.8 mg/dL (2.5-4.5); Potassium 3.9 mmol/L (3.5-5.1); Sodium 130 mmol/L (137-145)
[2022-12-22] MEDS: PANTOPRAZOLE 40 MG/10 ML VIAL IVP SCH ×2 (08:49→21:34)
--- NOTE | 2022-12-22 10:39 | P.PN ---
Subjective Progress Note Date: 12/22/22 This is a 27-year-old male with past medical history significant for type 1 diabetes mellitus and frequent hospital admissions for DKA. He has a known history of medication noncompliance. He has been here 5 times this month alone. He is seen again in the emergency department after developing nausea, vomiting and abdominal discomfort. His current glucose level was 629, bicarb of 5 and anion gap of 36. He is currently on insulin drip at 7.5 units per hour. Normal saline at 200 ML's per hour. He is currently resting on a stretcher. He is arousable but drifts off easily. Not answering many questions today. He is maintaining O2 saturations up to 100% on room air. He's been afebrile. Tachyca rdic. Blood pressure stable. White count 13.5. Hemoglobin 13.4. Weight 342. Sodium 141. Potassium 4.6. BUN 21. Creatinine 0.93. Acetone positive. The patient is seen today 12/22/2022 in follow-up in the intensive care unit. He is currently resting comfortably in bed. Awake and alert in no acute distress. Maintaining O2 saturations in the 90s on room air. He has D5.45 saline with 20 of KCl at 50 MLS per hour. White count 17.2. Hemoglobin 11.6. Sodium 1:30. Potassium 3.9. Bicarb 21. BUN 17. Creatinine 0.58. Anion gap 10. Glucose 276. He has been transitioned to Levemir 22 units daily along with NovoLog sliding scale. Heparin for DVT prophylaxis. Currently tolerating a clear liquid diet. Objective - Vital Signs Vital signs: Vital Signs Temp 98.2 F 12/22/22 08:00 Pulse 87 12/22/22 09:00 Resp 14 12/22/22 09:00 BP 117/93 12/22/22 09:00 Pulse Ox 99 12/22/22 09:00 FiO2 Intake & Output 12/21/22 12/22/22 12/22/22 18:59 06:59 18:59 Intake Total 297.988 6078.840 100 Output Total 300 500 350 Balance 960.818 4709.840 -250 Weight 74.843 kg Intake: IV 750 1500 100 D5-0.45% NaCl with KCl 750 1350 20Meq/l 1,000 ml @ 150 mls/hr IV .Q6H40M [facility] Rx# :[id number] D5-0.45% NaCl with KCl 150 100 20Meq/l 1,000 ml @ 50 mls /hr IV .Q20H [facility] Rx#: [id number] Intake, IV Titration 37.512 13.840 Amount Insulin Regular 100 unit 37.512 13.840 In Sodium Chloride 0.9% 100 ml @ 0.1 UNITS/KG/HR 7.559 mls/hr IV .[id number] [facility] Rx#:[id number] Output: Urine 300 500 350 Other: # Voids 0 1 - Exam GENERAL EXAM: Awake, alert, thin 27-year-old male, resting in bed, on room air, fairly comfortable in no apparent distress. HEAD: Normocephalic. EYES: Normal reaction of pupils, equal size. NOSE: Clear with pink turbinates. THROAT: No erythema or exudates. NECK: No masses, no JVD. CHEST: No chest wall deformity. LUNGS: Equal air entry with no crackles, wheeze, rhonchi or dullness. CVS: S1 and S2 normal with no audible murmur, regular rhythm. ABDOMEN: No hepatosplenomegaly, normal bowel sounds, no guarding or rigidity. SPINE: No scoliosis or deformity SKIN: No rashes CENTRAL NERVOUS SYSTEM: No focal deficits, tone is normal in all 4 extremities. EXTREMITIES: There is no peripheral edema. No clubbing, no cyanosis. Peripheral pulses are intact. - Labs CBC & Chem 7: 12/22/22 05:12 12/22/22 07:48 Labs: Abnormal Lab Results - Last 24 Hours (Table) 12/21/22 12/21/22 12/21/22 Range/Units 08:27 11:06 12:00 WBC (3.8-10.6) k/uL RBC (4.30-5.90) m/uL Hgb (13.0-17.5) gm/dL Hct (39.0-53.0) % Neutrophils # (1.3-7.7) k/uL VBG pH (7.31-7.41) VBG pCO2 (37-51) mmHg VBG HCO3 (24-28) mmol/L Sodium (137-145) mmol/L Chloride (98-107) mmol/L Carbon Dioxide (22-30) mmol/L BUN (9-20) mg/dL Creatinine (0.66-1.25) mg/dL Glucose (74-99) mg/dL POC Glucose (mg/dL) 453 H 322 H (70-110) mg/dL Hemoglobin A1c 10.0 H (<=6.0) % Plasma Lactic Acid Len (0.7-2.0) mmol/L Calcium (8.4-10.2) mg/dL Phosphorus (2.5-4.5) mg/dL 12/21/22 12/21/22 12/21/22 Range/Units 12:23 12:23 12:23 WBC (3.8-10.6) k/uL RBC (4.30-5.90) m/uL Hgb (13.0-17.5) gm/dL Hct (39.0-53.0) % Neutrophils # (1.3-7.7) k/uL VBG pH 7.28 L (7.31-7.41) VBG pCO2 30 L (37-51) mmHg VBG HCO3 14 L (24-28) mmol/L Sodium 148 H (137-145) mmol/L Chloride 111 H (98-107) mmol/L Carbon Dioxide 11 L (22-30) mmol/L BUN 22 H (9-20) mg/dL Creatinine (0.66-1.25) mg/dL Glucose 270 H (74-99) mg/dL POC Glucose (mg/dL) (70-110) mg/dL Hemoglobin A1c (<=6.0) % Plasma Lactic Acid Len 6.1 H* (0.7-2.0) mmol/L Calcium (8.4-10.2) mg/dL Phosphorus (2.5-4.5) mg/dL 12/21/22 12/21/22 12/21/22 Range/Units 13:02 13:58 15:20 WBC (3.8-10.6) k/uL RBC (4.30-5.90) m/uL Hgb (13.0-17.5) gm/dL Hct (39.0-53.0) % Neutrophils # (1.3-7.7) k/uL VBG pH (7.31-7.41) VBG pCO2 (37-51) mmHg VBG HCO3 (24-28) mmol/L Sodium (137-145) mmol/L Chloride (98-107) mmol/L Carbon Dioxide (22-30) mmol/L BUN (9-20) mg/dL Creatinine (0.66-1.25) mg/dL Glucose (74-99) mg/dL POC Glucose (mg/dL) 180 H 132 H 112 H (70-110) mg/dL Hemoglobin A1c (<=6.0) % Plasma Lactic Acid Len (0.7-2.0) mmol/L Calcium (8.4-10.2) mg/dL Phosphorus (2.5-4.5) mg/dL 12/21/22 12/21/22 12/21/22 Range/Units 16:13 16:29 17:07 WBC (3.8-10.6) k/uL RBC (4.30-5.90) m/uL Hgb (13.0-17.5) gm/dL Hct (39.0-53.0) % Neutrophils # (1.3-7.7) k/uL VBG pH (7.31-7.41) VBG pCO2 (37-51) mmHg VBG HCO3 (24-28) mmol/L Sodium 146 H (137-145) mmol/L Chloride 112 H (98-107) mmol/L Carbon Dioxide 21 L (22-30) mmol/L BUN 22 H (9-20) mg/dL Creatinine (0.66-1.25) mg/dL Glucose 150 H (74-99) mg/dL POC Glucose (mg/dL) 144 H 129 H (70-110) mg/dL Hemoglobin A1c (<=6.0) % Plasma Lactic Acid Len (0.7-2.0) mmol/L Calcium (8.4-10.2) mg/dL Phosphorus 2.4 L (2.5-4.5) mg/dL 12/21/22 12/21/22 12/21/22 Range/Units 18:13 19:02 20:01 WBC (3.8-10.6) k/uL RBC (4.30-5.90) m/uL Hgb (13.0-17.5) gm/dL Hct (39.0-53.0) % Neutrophils # (1.3-7.7) k/uL VBG pH (7.31-7.41) VBG pCO2 (37-51) mmHg VBG HCO3 (24-28) mmol/L Sodium (137-145) mmol/L Chloride (98-107) mmol/L Carbon Dioxide (22-30) mmol/L BUN (9-20) mg/dL Creatinine (0.66-1.25) mg/dL Glucose (74-99) mg/dL POC Glucose (mg/dL) 179 H 189 H 187 H (70-110) mg/dL Hemoglobin A1c (<=6.0) % Plasma Lactic Acid Len (0.7-2.0) mmol/L Calcium (8.4-10.2) mg/dL Phosphorus (2.5-4.5) mg/dL 12/21/22 12/21/22 12/21/22 Range/Units 20:04 21:00 22:04 WBC (3.8-10.6) k/uL RBC (4.30-5.90) m/uL Hgb (13.0-17.5) gm/dL Hct (39.0-53.0) % Neutrophils # (1.3-7.7) k/uL VBG pH (7.31-7.41) VBG pCO2 (37-51) mmHg VBG HCO3 (24-28) mmol/L Sodium (137-145) mmol/L Chloride 108 H (98-107) mmol/L Carbon Dioxide (22-30) mmol/L BUN 21 H (9-20) mg/dL Creatinine (0.66-1.25) mg/dL Glucose 194 H (74-99) mg/dL POC Glucose (mg/dL) 231 H 220 H (70-110) mg/dL Hemoglobin A1c (<=6.0) % Plasma Lactic Acid Len (0.7-2.0) mmol/L Calcium (8.4-10.2) mg/dL Phosphorus (2.5-4.5) mg/dL 12/21/22 12/21/22 12/22/22 Range/Units 23:13 23:55 00:25 WBC (3.8-10.6) k/uL RBC (4.30-5.90) m/uL Hgb (13.0-17.5) gm/dL Hct (39.0-53.0) % Neutrophils # (1.3-7.7) k/uL VBG pH (7.31-7.41) VBG pCO2 (37-51) mmHg VBG HCO3 (24-28) mmol/L Sodium (137-145) mmol/L Chloride (98-107) mmol/L Carbon Dioxide (22-30) mmol/L BUN 22 H (9-20) mg/dL Creatinine (0.66-1.25) mg/dL Glucose 267 H (74-99) mg/dL POC Glucose (mg/dL) 239 H 275 H (70-110) mg/dL Hemoglobin A1c (<=6.0) % Plasma Lactic Acid Len (0.7-2.0) mmol/L Calcium 8.3 L (8.4-10.2) mg/dL Phosphorus (2.5-4.5) mg/dL 12/22/22 12/22/22 12/22/22 Range/Units 00:57 02:02 03:03 WBC (3.8-10.6) k/uL RBC (4.30-5.90) m/uL Hgb (13.0-17.5) gm/dL Hct (39.0-53.0) % Neutrophils # (1.3-7.7) k/uL VBG pH (7.31-7.41) VBG pCO2 (37-51) mmHg VBG HCO3 (24-28) mmol/L Sodium (137-145) mmol/L Chloride (98-107) mmol/L Carbon Dioxide (22-30) mmol/L BUN (9-20) mg/dL Creatinine (0.66-1.25) mg/dL Glucose (74-99) mg/dL POC Glucose (mg/dL) 222 H 189 H 170 H (70-110) mg/dL Hemoglobin A1c (<=6.0) % Plasma Lactic Acid Len (0.7-2.0) mmol/L Calcium (8.4-10.2) mg/dL Phosphorus (2.5-4.5) mg/dL 12/22/22 12/22/22 12/22/22 Range/Units 04:05 05:11 05:12 WBC (3.8-10.6) k/uL RBC (4.30-5.90) m/uL Hgb (13.0-17.5) gm/dL Hct (39.0-53.0) % Neutrophils # (1.3-7.7) k/uL VBG pH (7.31-7.41) VBG pCO2 (37-51) mmHg VBG HCO3 (24-28) mmol/L Sodium 134 L (137-145) mmol/L Chloride (98-107) mmol/L Carbon Dioxide (22-30) mmol/L BUN (9-20) mg/dL Creatinine 0.60 L (0.66-1.25) mg/dL Glucose 133 H (74-99) mg/dL POC Glucose (mg/dL) 133 H 130 H (70-110) mg/dL Hemoglobin A1c (<=6.0) % Plasma Lactic Acid Len (0.7-2.0) mmol/L Calcium 8.1 L (8.4-10.2) mg/dL Phosphorus (2.5-4.5) mg/dL 12/22/22 12/22/22 12/22/22 Range/Units 05:12 06:31 07:48 WBC 17.2 H (3.8-10.6) k/uL RBC 3.68 L (4.30-5.90) m/uL Hgb 11.6 L (13.0-17.5) gm/dL Hct 34.4 L (39.0-53.0) % Neutrophils # 13.1 H (1.3-7.7) k/uL VBG pH (7.31-7.41) VBG pCO2 (37-51) mmHg VBG HCO3 (24-28) mmol/L Sodium 130 L (137-145) mmol/L Chloride (98-107) mmol/L Carbon Dioxide 21 L (22-30) mmol/L BUN (9-20) mg/dL Creatinine 0.58 L (0.66-1.25) mg/dL Glucose 276 H (74-99) mg/dL POC Glucose (mg/dL) 129 H (70-110) mg/dL Hemoglobin A1c (<=6.0) % Plasma Lactic Acid Len (0.7-2.0) mmol/L Calcium 8.0 L (8.4-10.2) mg/dL Phosphorus (2.5-4.5) mg/dL Assessment and Plan Assessment: Acute diabetic ketoacidosis, likely secondary to medication noncompliance. Patient has had multiple episodes of DKA, last discharged 12/19/2022 and back here 2 days later. Anion gap metabolic acidosis, secondary to above, recovered Type 1 diabetes mellitus, with poor compliance. Acute leukocytosis, not felt to be infectious Diabetic neuropathy History of major depression, denies any current suicidal ideation Chronic marijuana use Chronic ongoing nicotine dependence Plan: The patient was seen and evaluated Medications and labs reviewed Bicarb improved, anion gap closed Transitioned to Levemir, NovoLog scale Cleared for transfer out of the ICU today We will continue to follow I have personally seen and examined the patient, performed the documentation and the assessment and plan as written. Number of minutes spent on the visit: 10.
[2022-12-22 11:31] LABS: Glucose,Whole Blood 216 mg/dL (70-110)
[2022-12-22 16:29] LABS: Glucose,Whole Blood 129 mg/dL (70-110)
[2022-12-22] MEDS ORDERED: INSULIN DETEMIR (LEVEMIR) 100 UNIT/ML SYR SQ SCH (21:00)
[2022-12-22 21:26] LABS: Glucose,Whole Blood 69 mg/dL (70-110)
[2022-12-22 22:04] LABS: Glucose,Whole Blood 128 mg/dL (70-110)
[2022-12-23 02:15] LABS: Glucose,Whole Blood 130 mg/dL (70-110)
[2022-12-23] MEDS: INSULIN ASPART (NovoLOG) 100 UNIT/ML VIAL SQ SCH ×5 (02:19→11:44)
--- NOTE | 2022-12-23 03:00 | PN ---
PROGRESS NOTE DATE OF SERVICE: 12/22/2022 CHIEF COMPLAINT: Diabetic ketoacidosis. HISTORY OF PRESENT ILLNESS: This gentleman is stable and he is being moved out of ICU. PHYSICAL EXAMINATION: CHEST: Clear. CARDIAC: Normal. ABDOMEN: Soft, nontender. IMPRESSION: 1. Diabetic ketoacidosis. 2. Depression. 3. Gastroparesis. 4. Peripheral neuropathy. PLAN: Continue with IV fluid management for the time being. MMODL / IJN: [id number] /
[2022-12-23 06:15] LABS: Glucose,Whole Blood 124 mg/dL (70-110)
[2022-12-23] MEDS: INSULIN DETEMIR (LEVEMIR) 100 UNIT/ML SYR SQ SCH (07:01)
[2022-12-23] MEDS: HEPARIN SODIUM,PORCINE/PF 5,000 UNIT/0.5 ML SYRINGE SQ SCH (08:30)
[2022-12-23] MEDS: PANTOPRAZOLE 40 MG/10 ML VIAL IVP SCH (08:30)
[2022-12-23 11:17] LABS: Glucose,Whole Blood 184 mg/dL (70-110)
[2022-12-23 12:00] VITALS: BMI 19.5
[2022-12-23 13:29] LABS: Basophils # (A) 0.04 X 10*3/uL (0.00-0.10); Basophils % (A) 0.5 %; Eosinophils # (A) 0.22 X 10*3/uL (0.04-0.35); Eosinophils % (A) 2.5 %; HCT 35.8 % (39.6-50.0); HGB 11.8 d/dL (13.0-17.0); Lymphocytes # (A) 2.99 X 10*3/uL (0.90-5.00); Lymphocytes % (A) 33.9 %; MCH 30.6 pg (27.0-32.0); MCV 92.7 FL (80.0-97.0); Mean Platelet Volume 9.4 FL (9.5-12.2); Monocytes # (A) 0.81 X 10*3/uL (0.20-1.00); Monocytes % (A) 9.2 %; NRBC Per 100 WBC 0 X 10*3/uL (0.00-0.01); Neutrophils # (A) 4.74 X 10*3/uL (1.80-7.70); Neutrophils % (A) 53.6 %; Platelet Count 311 X 10*3/uL (140-440); RBC 3.86 X 10*6/uL (4.40-5.60); RDW 14.1 % (11.5-14.5); WBC 8.83 X 10*3/uL (4.50-10.00)
[2022-12-23 14:07] LABS: BUN/Creat Ratio 8.43 Ratio (12.00-20.00); Blood Urea Nitrogen 5.9 mg/dL (9.0-27.0); Calcium 8.5 mg/dL (8.7-10.3); Carbon Dioxide 23.7 mmol/L (21.6-31.8); Chloride 98 mmol/L (96-109); Glucose 210 mg/dL (70-110); Potassium 4.6 mmol/L (3.5-5.5); Sodium 133 mmol/L (135-145)
[2022-12-23 14:29] VITALS: BP 141/83; PULSE 99; RESP 15; TEMP 97.6
--- NOTE | 2022-12-23 23:48 | DS ---
DISCHARGE SUMMARY CHIEF COMPLAINT: DKA. HISTORY OF PRESENT ILLNESS AND PHYSICAL EXAMINATION: Details of this man's history and physical can be found in the initial workup. LABORATORY STUDIES: While he is in the hospital, he had laboratory studies, details of which can be found in the laboratory section of his chart. COURSE IN THE HOSPITAL: After admission, he was placed on bedrest and started on intravenous fluids and DKA protocol. He was doing well and then signed himself out against medical advice once again on . FINAL DIAGNOSIS: 1. Diabetic ketoacidosis. 2. Intractable nausea and vomiting. 3. Dehydration. 4. Peripheral neuropathy. 5. Gastroparesis. OPERATIONS: None. CONSULTATIONS: None. He is improved. MMODL / IJN: [id number] /
== END 2022-12-23 15:43 | disposition left against medical advice (07) | DRG 420 ==
LOC: EC 08:12 → 2SICU 11:31 → 4SSUR 12-22 13:18
PROVIDERS: ADMIT Family Medicine; ATTEND Family Medicine
DX: E10.10 Type 1 diabetes mellitus with ketoacidosis without coma (principal); E10.43 Type 1 diabetes mellitus with diabetic autonomic (poly)neuropathy; E86.0 Dehydration; G93.41 Metabolic encephalopathy; Z20.822 Contact with and (suspected) exposure to COVID-19; I10 Essential (primary) hypertension; F17.210 Nicotine dependence, cigarettes, uncomplicated; R00.0 Tachycardia, unspecified; J45.909 Unspecified asthma, uncomplicated; K29.70 Gastritis, unspecified, without bleeding; F32.A Depression, unspecified; D72.829 Elevated white blood cell count, unspecified; F41.9 Anxiety disorder, unspecified; Z71.6 Tobacco abuse counseling; K31.84 Gastroparesis; Z79.899 Other long term (current) drug therapy; Z79.4 Long term (current) use of insulin; Z82.49 Family history of ischemic heart disease and other diseases of the circulatory system; Z91.148 Patient's other noncompliance with medication regimen for other reason
CPT/HCPCS: 36415; 80048; 80051; 80053; 82009; 82550; 82565; 82803; 82947; 83036; 83605; 83690; 83735; 84100; 84484; 84520; 85025; 87636; 93005; 96361; 96374; 96375; 99291

== ENCOUNTER 2022-12-31 03:06 | Inpatient (IN) | payer OTHER ==
[2022-12-31] MEDS ORDERED: SODIUM CHLORIDE 0.9% 1,000 ML IV ONE ×2 (03:08)
--- NOTE | 2022-12-31 03:15 | ED ---
General Adult HPI - General Stated complaint: DKA Time Seen by Provider: 12/31/22 03:07 Source: EMS, RN notes reviewed, old records reviewed Limitations: altered mental status - History of Present Illness Initial comments: 27-year-old male presenting in extremis, history of type 1 diabetes and noncompliance. History of recurrent episodes of DKA. Paramedics had been contacted to transport the patient with complaint of altered level consciousness and vomiting. Patient was tachypneic and tachycardic. He is unable to contribute at all to the history. - Related Data Home Medications Medication Instructions Recorded Confirmed Gabapentin 600 mg PO TID 10/14/22 12/21/22 [place] Carbon[place] 150 mg PO BID 10/14/22 12/21/22 Losartan [Cozaar] 50 mg PO DAILY 10/14/22 12/21/22 buPROPion XL [Wellbutrin XL] 300 mg PO DAILY 10/14/22 12/21/22 Mirtazapine [Remeron] 15 mg PO HS 10/28/22 12/21/22 INSULIN ASPART (NovoLOG) [NovoLOG 7 unit SQ AC-TID 11/14/22 12/21/22 (formulary)] Previous Rx's Medication Instructions Recorded Insulin Detemir (Levemir) [Levemir] 28 unit SQ DAILY@0700 30 Days #1 10/03/22 each Allergies Allergy/AdvReac Type Severity Reaction Status Date / Time No Known Allergies Allergy Verified 12/21/22 11:42 Review of Systems ROS Statement: Those systems with pertinent positive or pertinent negative responses have been documented in the HPI. ROS Other: All systems not noted in ROS Statement are negative. Past Medical History Past Medical History: Asthma, Diabetes Mellitus, Neurologic Disorder, Skin Disorder Additional Past Medical History / Comment(s): IDDM type I, neuropathy bilateral feet, DKA, eczema. History of Any Multi-Drug Resistant Organisms: None Reported Past Surgical History: Adenoidectomy Additional Past Surgical History / Comment(s): 2003 Recent EGD- gastritis Past Anesthesia/Blood Transfusion Reactions: No Reported Reaction Past Psychological History: Anxiety, Depression Additional Psychological History / Comment(s): Pt has had multiple psychiatric admissions for depression/suicide attempts. Smoking Status: Former smoker Past Alcohol Use History: None Reported Additional Past Alcohol Use History / Comment(s): Pt started smoking cigarettes as a teen and quit "long ago." Pt started occasional vaping in 2009. Past Drug Use History: None Reported Additional Drug Use History / Comment(s): Occasional - Past Family History Mother Family Medical History: CVA/TIA Additional Family Medical History / Comment(s): TIA Father Family Medical History: Hyperlipidemia, Hypertension Additional Family Medical History / Comment(s): . General Exam General appearance: obtunded, in distress Head exam: Present: atraumatic, normocephalic Eye exam: Present: normal appearance, PERRL Respiratory exam: Present: respiratory distress. Absent: rales, rhonchi Cardiovascular Exam: Present: normal rhythm, tachycardia GI/Abdominal exam: Present: soft. Absent: distended, tenderness Extremities exam: Present: normal inspection, normal capillary refill Neurological exam: Absent: alert, oriented X3, motor sensory deficit Skin exam: Present: warm, pallor Course Vital Signs 12/31/22 12/31/22 12/31/22 03:12 03:29 03:40 Pulse Rate 102 H 101 H 104 H Respiratory 28 H 32 H 35 H Rate Blood Pressure 62/49 81/53 81/53 O2 Sat by Pulse 89 L 99 99 Oximetry 12/31/22 12/31/22 12/31/22 03:43 03:50 04:00 Pulse Rate 102 H 101 H 101 H Respiratory 30 H 33 H 34 H Rate Blood Pressure 92/42 92/42 80/31 O2 Sat by Pulse 99 99 99 Oximetry 12/31/22 12/31/22 04:10 04:20 Pulse Rate 99 100 Respiratory 24 39 H Rate Blood Pressure 90/49 76/45 O2 Sat by Pulse 99 100 Oximetry Medical Decision Making - Medical Decision Making Was pt. sent in by a medical professional or institution (, PA, PLATE GRAINER, urgent care, hospital, or jail...) When possible be specific @ -No Did you speak to anyone other than the patient for history (EMS, parent, family, police, friend...)? What history was obtained from this source @ -No Did you review nursing and triage notes (agree or disagree)? Why? @ -I reviewed and agree with nursing and triage notes Were old charts reviewed (outside hosp., previous admission, EMS record, old EKG, old radiological studies, urgent care reports/EKG's, jail records)? Report findings @ -No old charts were reviewed Differential Diagnosis (chest pain, altered mental status, abdominal pain women, abdominal pain men, vaginal bleeding, weakness, fever, dyspnea, syncope, headache, dizziness, GI bleed, back pain, seizure, CVA, palpatations, mental health, musculoskeletal)? @ -[Differential Altered Mental Status: Hypoglycemia, DKA, hypercapnia, ETOH, overdose, CO poisoning, trauma, myxedema coma, HTN encephalopathy, infection, encephalitis, psychosis, intercranial hemorrhage, hepatic encephalopathy, meningitis, CVA, this is not meant to be an all-inclusive list EKG interpreted by me (3pts min.). @ -Sinus tachycardia with a rate around 110, peak T waves, tremor artifact limiting assessment CA interval 119, QRS duration 112, QTC 289 X-rays interpreted by me (1pt min.). @ -None done CT interpreted by me (1pt min.). @ -None done U/S interpreted by me (1pt. min.). @ -None done What testing was considered but not performed or refused? (CT, X-rays, U/S, labs)? Why? @ -None What meds were considered but not given or refused? Why? @ -None Did you discuss the management of the patient with other professionals (professionals i.e. , PA, PLATE GRAINER, lab, RT, psych nurse, social worker delinquency prevention, nail assembly machine operator, teacher, medical officer psychiatry, case loader operator)? Give summary @ -Dr. Valenzuela and Adam covering for ICU Was smoking cessation discussed for >3mins.? @ -No Was critical care preformed (if so, how long)? @ -Yes 35 minutes Were there social determinants of health that impacted care today? How? (Homelessness, low income, unemployed, alcoholism, drug addiction, transportation, low edu. Level, literacy, decrease access to med. care, residential, rehab)? @ -No Was there de-escalation of care discussed even if they declined (Discuss DNR or withdrawal of care, Hospice)? DNR status @ -No What co-morbidities impacted this encounter? (DM, HTN, Smoking, COPD, CAD, Cancer, CVA, ARF, Chemo, Hep., AIDS, mental health diagnosis, sleep apnea, morbid obesity)? @ -Type 1 diabetes Was patient admitted / discharged? Hospital course, mention meds given and route, prescriptions, significant lab abnormalities, going to OR and other pertinent info. @ -[27-year-old male presenting in extremis, hypotensive tachycardic, Kussmaul respiration concern for DKA. Patient has a blood sugar of 1200. He is in acute renal failure. He has elevated potassium at 6.9 this is treated with normal saline and IV insulin. He has a pH of 6.86 and a lactic acid of 9.4. Patient is seriously ill and will require ICU admission. Undiagnosed new problem with uncertain prognosis? @ -No Drug Therapy requiring intensive monitoring for toxicity (Heparin, Nitro, Insulin, Cardizem)? @ -No Were any procedures done? @ -No Diagnosis/symptom? @ -[DKA Acute, or Chronic, or Acute on Chronic? @ -[Acute Uncomplicated (without systemic symptoms) or Complicated (systemic symptoms)? @ -Complicated Side effects of treatment? @ -No Exacerbation, Progression, or Severe Exacerbation? @ -No Poses a threat to life or bodily function? How? (Chest pain, [place], [place], pneumonia, PE, COPD, DKA, ARF, appy, cholecystitis, CVA, Diverticulitis, Homicidal, Suicidal, threat to staff... and all critical care pts) @ -[Yes, DKA - Lab Data Result diagrams: 12/31/22 03:30 12/31/22 03:30 Lab Results 12/31/22 12/31/22 12/31/22 Range/Units 03:21 03:30 03:30 WBC 47.4 H (3.8-10.6) k/uL RBC 3.89 L (4.30-5.90) m/uL Hgb 12.2 L (13.0-17.5) gm/dL Hct 44.1 (39.0-53.0) % MCV 113.4 H D (80.0-100.0) fL MCH 31.5 (25.0-35.0) pg MCHC 27.8 L (31.0-37.0) g/dL RDW 14.5 (11.5-15.5) % Plt Count 573 H (150-450) k/uL MPV 8.3 Neutrophils % (Manual) 66 % Band Neuts % (Manual) 15 % Lymphocytes % (Manual) 9 % Monocytes % (Manual) 3 % Eosinophils % (Manual) 1 % Metamyelocytes % 2 % Myelocytes % 4 % Neutrophils # (Manual) 38.30 H (1.3-7.7) k/uL Lymphocytes # (Manual) 4.27 (1.0-4.8) k/uL Monocytes # (Manual) 1.42 H (0-1.0) k/uL Eosinophils # (Manual) 0.47 (0-0.7) k/uL Metamyelocytes # (Man) 0.95 H (0) k/uL Myelocytes # (Manual) 1.90 H (0) k/uL Nucleated RBCs 1 H (0-0) /100 WBC Manual Slide Review Performed Hypochromasia Marked Macrocytosis Marked A VBG pH (7.31-7.41) VBG pCO2 (37-51) mmHg VBG HCO3 (24-28) mmol/L Sodium 137 (137-145) mmol/L Potassium 6.9 H* (3.5-5.1) mmol/L Chloride 88 L (98-107) mmol/L Carbon Dioxide <5 L* (22-30) mmol/L Anion Gap mmol/L BUN 33 H (9-20) mg/dL Creatinine 2.43 H (0.66-1.25) mg/dL Est GFR (CKD-EPI)AfAm 41 (>60 ml/min/1.73 sqM) Est GFR (CKD-EPI)NonAf 36 (>60 ml/min/1.73 sqM) Glucose 1272 H* (74-99) mg/dL POC Glucose (mg/dL) >600 H (70-110) mg/dL POC Glu [place] Table Assembler ID Eliezer Chavarria Plasma Lactic Acid Len (0.7-2.0) mmol/L Calcium 9.3 (8.4-10.2) mg/dL Magnesium 3.2 H (1.6-2.3) mg/dL Total Bilirubin 0.5 (0.2-1.3) mg/dL AST 27 (17-59) U/L ALT 25 (4-49) U/L Alkaline Phosphatase 103 (38-126) U/L Total Protein 6.6 (6.3-8.2) g/dL Albumin 4.4 (3.5-5.0) g/dL Serum Alcohol <10 mg/dL Acetone, Qual Positive (Negative) 12/31/22 12/31/22 Range/Units 03:30 03:30 WBC (3.8-10.6) k/uL RBC (4.30-5.90) m/uL Hgb (13.0-17.5) gm/dL Hct (39.0-53.0) % MCV (80.0-100.0) fL MCH (25.0-35.0) pg MCHC (31.0-37.0) g/dL RDW (11.5-15.5) % Plt Count (150-450) k/uL MPV Neutrophils % (Manual) % Band Neuts % (Manual) % Lymphocytes % (Manual) % Monocytes % (Manual) % Eosinophils % (Manual) % Metamyelocytes % % Myelocytes % % Neutrophils # (Manual) (1.3-7.7) k/uL Lymphocytes # (Manual) (1.0-4.8) k/uL Monocytes # (Manual) (0-1.0) k/uL Eosinophils # (Manual) (0-0.7) k/uL Metamyelocytes # (Man) (0) k/uL Myelocytes # (Manual) (0) k/uL Nucleated RBCs (0-0) /100 WBC Manual Slide Review Hypochromasia Macrocytosis VBG pH 6.86 L* (7.31-7.41) VBG pCO2 14 L* (37-51) mmHg VBG HCO3 3 L* (24-28) mmol/L Sodium (137-145) mmol/L Potassium (3.5-5.1) mmol/L Chloride (98-107) mmol/L Carbon Dioxide (22-30) mmol/L Anion Gap mmol/L BUN (9-20) mg/dL Creatinine (0.66-1.25) mg/dL Est GFR (CKD-EPI)AfAm (>60 ml/min/1.73 sqM) Est GFR (CKD-EPI)NonAf (>60 ml/min/1.73 sqM) Glucose (74-99) mg/dL POC Glucose (mg/dL) (70-110) mg/dL POC Glu [place]eter[place] Table Assembler ID Plasma Lactic Acid Len 9.4 H* (0.7-2.0) mmol/L Calcium (8.4-10.2) mg/dL Magnesium (1.6-2.3) mg/dL Total Bilirubin (0.2-1.3) mg/dL AST (17-59) U/L ALT (4-49) U/L Alkaline Phosphatase (38-126) U/L Total Protein (6.3-8.2) g/dL Albumin (3.5-5.0) g/dL Serum Alcohol mg/dL Acetone, Qual (Negative) Critical Care Time Critical Care Time: Yes Total Critical Care Time: 35 Disposition Clinical Impression: DKA (diabetic ketoacidoses) Disposition: ADMITTED IP TO THIS [facility] Condition: Serious Is patient prescribed a controlled substance at d/c from ED?: No Time of Disposition: 04:41
[2022-12-31 03:23] LABS: Glucose,Whole Blood >600 mg/dL (70-110)
[2022-12-31 03:45] LABS: VBG PH 6.86 (7.31-7.41)
[2022-12-31] MEDS ORDERED: INSULIN REGULAR BOLUS (FROM DRIP BAG) IV ONE (03:51)
[2022-12-31 03:54] LABS: ALT 25 U/L (4-49); AST 27 U/L (17-59); African American GFR (CKD) 41 (>60 ml/min/1.73 sqM); Albumin 4.4 g/dL (3.5-5.0); Alcohol <10 mg/dL; Alkaline Phosphatase 103 U/L (38-126); Blood Urea Nitrogen 33 mg/dL (9-20); Calcium 9.3 mg/dL (8.4-10.2); Chloride 88 mmol/L (98-107); Magnesium 3.2 mg/dL (1.6-2.3); Non-African American GFR(CKD) 36 (>60 ml/min/1.73 sqM); Sodium 137 mmol/L (137-145); Total Bilirubin 0.5 mg/dL (0.2-1.3); Total Protein 6.6 g/dL (6.3-8.2)
[2022-12-31 03:55] LABS: HCT 44.1 % (39.0-53.0); HGB 12.2 gm/dL (13.0-17.5); Hypochromasia Marked; MCH 31.5 pg (25.0-35.0); MCHC 27.8 g/dL (31.0-37.0); Macrocytosis Marked; Mean Platelet Volume 8.3; Platelet Count 573 k/uL (150-450); RBC 3.89 m/uL (4.30-5.90); RDW 14.5 % (11.5-15.5)
[2022-12-31 03:56] LABS: MCV 113.4 fL (80.0-100.0)
[2022-12-31 04:15] LABS: Carbon Dioxide <5 mmol/L (22-30); Potassium 6.9 mmol/L (3.5-5.1)
[2022-12-31] MEDS: SODIUM CHLORIDE 0.9% 1,000 ML IV SCH ×4 (04:15→19:08)
[2022-12-31 04:18] LABS: Glucose 1272 mg/dL (74-99)
[2022-12-31] MEDS: INSULIN REGULAR 100 UNIT in SODIUM CHLORIDE 0.9% 100 ML IV SCH ×2 (04:24→13:40)
[2022-12-31 04:30] LABS: Band Neutrophils % 15 %; Metamyelocytes % 2 %; Myelocytes % 4 %; Neutrophils % (M) 66 %
[2022-12-31 04:32] LABS: Eosinophils # (M) 0.47 k/uL (0-0.7); Lymphocytes # (M) 4.27 k/uL (1.0-4.8); Metamyelocytes # (M) 0.95 k/uL (0); Monocytes # (M) 1.42 k/uL (0-1.0); Nucleated Red Blood Cells 1 /100 WBC (0-0); Total Cells Counted 200; WBC 47.4 k/uL (3.8-10.6)
[2022-12-31 04:44] LABS: Appearance,Urine Cloudy (Clear); Bacteria,Urine Rare /hpf; Bilirubin,Urine Negative (Negative); Blood,Urine Negative (Negative); Color,Urine Yellow; Glucose,Urine (UA) Negative (Negative); Hyaline Casts,Urine 21 /lpf (0-2); Ketones,Urine Negative (Negative); Leukocyte Esterase,Urine Trace (Negative); Mucus,Urine Few /hpf; Nitrite,Urine Negative (Negative); PH, Urine 5.5 (5.0-8.0); Protein,Urine 1+ (Negative); RBC,Urine 3 /hpf (0-5); Specific Gravity,Urine 1.026 (1.001-1.035); Squamous Epithelial Cell,Urine 15 /hpf (0-4); Urobilinogen,Urine <2.0 mg/dL (<2.0); WBC,Urine 11 /hpf (0-5)
[2022-12-31 04:47] LABS: Glucose,Whole Blood >600 mg/dL (70-110)
[2022-12-31] MEDS ORDERED: SODIUM BICARB 8.4% 50 ML SYR (1 MEQ/ML) IV STA (04:57)
[2022-12-31] MEDS ORDERED: SODIUM CHLORIDE 0.9% 500 ML 500 ML IV ONE (05:14)
--- NOTE | 2022-12-31 05:17 | P.CNPUL ---
History of Present Illness Consult date: 12/31/22 Requesting physician: Gene Gregorio Reason for consult: other (ICU management) Chief complaint: Diabetic ketoacidosis History of present illness: I am seeing this patient in consultation today 12/31/2022 for acute diabetic ketoacidosis. This is a 27-year-old white male with past medical history significant for type 1 diabetes mellitus and medication noncompliance. Patient has had numerous hospital admissions for diabetic ketoacidosis, and was just discharged from the hospital on November. Patient was brought in by EMS with complaints of altered mental status and vomiting. He was found to be in DKA. Serum bicarb was less than 5, anion gap unmeasurable, glucose 1272, and he was acetone positive. Patient has been started on the DKA protocol. Insulin is currently infusing at 7 units per hour. Blood pressure is hypotensive, and he is currently being fluid resuscitated. He has received a total of 2 L normal saline bolus and has normal saline infusing at 500 ML's per hour. He is hyperkalemic with a potassium of 6.9, and there are hyperacute T waves on bedside ECG. VBG shows severe anion gap metabolic acidosis with pH of 6.86. CBC on arrival shows leukocytosis with a WBC count of 47.4, hemoglobin 12.2, hematocrit 44.1, platelets 573. BMP on arrival shows sodium 137, potassium 6.9, chloride 88, serum bicarb less than 5, BUN 33, creatinine 2.43. There is a comp onent of acute kidney injury. UA not significant for UTI. Patient is currently lying in bed, on 3 L/m nasal cannula, and is minimally responsive to verbal stimuli. When stimulated he will look at you, but does not follow any commands. He has kussmaul respirations. Patient will be monitored in the intensive care unit. Review of Systems ROS unobtainable: due to mental status Past Medical History Past Medical History: Asthma, Diabetes Mellitus, Neurologic Disorder, Skin Disorder Additional Past Medical History / Comment(s): IDDM type I, neuropathy bilateral feet, DKA, eczema. History of Any Multi-Drug Resistant Organisms: None Reported Past Surgical History: Adenoidectomy Additional Past Surgical History / Comment(s): 2003 Recent EGD- gastritis Past Anesthesia/Blood Transfusion Reactions: No Reported Reaction Past Psychological History: Anxiety, Depression Additional Psychological History / Comment(s): Pt has had multiple psychiatric admissions for depression/suicide attempts. Smoking Status: Former smoker Past Alcohol Use History: None Reported Additional Past Alcohol Use History / Comment(s): Pt started smoking cigarettes as a teen and quit "long ago." Pt started occasional vaping in 2009. Past Drug Use History: None Reported Additional Drug Use History / Comment(s): Occasional - Past Family History Mother Family Medical History: CVA/TIA Additional Family Medical History / Comment(s): TIA Father Family Medical History: Hyperlipidemia, Hypertension Additional Family Medical History / Comment(s): . Medications and Allergies Home Medications Medication Instructions Recorded Confirmed Type Insulin Detemir (Levemir) [Levemir] 28 unit SQ DAILY@0700 30 Days #1 10/03/22 12/21/22 Rx each Gabapentin 600 mg PO TID 10/14/22 12/21/22 History [place] Carbonate 150 mg PO BID 10/14/22 12/21/22 History Losartan [Cozaar] 50 mg PO DAILY 10/14/22 12/21/22 History buPROPion XL [Wellbutrin XL] 300 mg PO DAILY 10/14/22 12/21/22 History Mirtazapine [Remeron] 15 mg PO HS 10/28/22 12/21/22 History INSULIN ASPART (NovoLOG) [NovoLOG 7 unit SQ AC-TID 11/14/22 12/21/22 History (formulary)] Allergies Allergy/AdvReac Type Severity Reaction Status Date / Time No Known Allergies Allergy Verified 12/21/22 11:42 Physical Exam Vitals: Vital Signs Pulse Resp BP Pulse Ox 12/31/22 04:20 100 39 H 76/45 100 12/31/22 04:10 99 24 90/49 99 12/31/22 04:00 101 H 34 H 80/31 99 12/31/22 03:50 101 H 33 H 92/42 99 12/31/22 03:43 102 H 30 H 92/42 99 12/31/22 03:40 104 H 35 H 81/53 99 12/31/22 03:29 101 H 32 H 81/53 99 12/31/22 03:12 102 H 28 H 62/49 89 L Intake and Output 12/30/22 12/30/22 12/31/22 14:59 22:59 06:59 Other: Weight 63.503 kg GENERAL EXAM: Lethargic, 27-year-old male who is disheveled, and some moderate distress. HEAD: Normocephalic and atraumatic EYES: Normal reaction of pupils, equal size. NOSE: Clear with pink turbinates. THROAT: No erythema or exudates. Dry mucous membranes NECK: No masses, no JVD. CHEST: No chest wall deformity. LUNGS: Equal air entry with no crackles, wheeze, rhonchi or dullness. On 3 L/m nasal cannula. Kussmaul respirations noted. CVS: S1 and S2 normal with no audible murmur, regular rhythm. No extra heart sounds ABDOMEN: No hepatosplenomegaly, active bowel sounds, no guarding or rigidity. SPINE: No scoliosis or deformity SKIN: No rashes CENTRAL NERVOUS SYSTEM: No focal deficits, tone is weak in all 4 extremities. EXTREMITIES: There is no peripheral edema, clubbing, or cyanosis. Peripheral pulses are intact. Results - Laboratory Findings CBC and BMP: 12/31/22 03:30 12/31/22 03:30 Abnormal lab findings: Abnormal Labs 12/31/22 12/31/22 12/31/22 03:21 03:30 03:30 WBC 47.4 H RBC 3.89 L Hgb 12.2 L MCV 113.4 H D MCHC 27.8 L Plt Count 573 H Neutrophils # (Manual) 38.30 H Monocytes # (Manual) 1.42 H Metamyelocytes # (Man) 0.95 H Myelocytes # (Manual) 1.90 H Nucleated RBCs 1 H Macrocytosis Marked A VBG pH VBG pCO2 VBG HCO3 Potassium Chloride Carbon Dioxide BUN Creatinine Glucose POC Glucose (mg/dL) >600 H Plasma Lactic Acid Len Magnesium Urine Protein 1+ H Ur Leukocyte Esterase Trace H Urine WBC 11 H Ur Squamous Epith Cells 15 H Urine Bacteria Rare H Hyaline Casts 21 H Urine Mucus Few H 12/31/22 12/31/22 12/31/22 03:30 03:30 03:30 WBC RBC Hgb MCV MCHC Plt Count Neutrophils # (Manual) Monocytes # (Manual) Metamyelocytes # (Man) Myelocytes # (Manual) Nucleated RBCs Macrocytosis VBG pH 6.86 L* VBG pCO2 14 L* VBG HCO3 3 L* Potassium 6.9 H* Chloride 88 L Carbon Dioxide <5 L* BUN 33 H Creatinine 2.43 H Glucose 1272 H* POC Glucose (mg/dL) Plasma Lactic Acid Len 9.4 H* Magnesium 3.2 H Urine Protein Ur Leukocyte Esterase Urine WBC Ur Squamous Epith Cells Urine Bacteria Hyaline Casts Urine Mucus 12/31/22 04:45 WBC RBC Hgb MCV MCHC Plt Count Neutrophils # (Manual) Monocytes # (Manual) Metamyelocytes # (Man) Myelocytes # (Manual) Nucleated RBCs Macrocytosis VBG pH VBG pCO2 VBG HCO3 Potassium Chloride Carbon Dioxide BUN Creatinine Glucose POC Glucose (mg/dL) >600 H Plasma Lactic Acid Len Magnesium Urine Protein Ur Leukocyte Esterase Urine WBC Ur Squamous Epith Cells Urine Bacteria Hyaline Casts Urine Mucus Assessment and Plan Assessment: Acute diabetic ketoacidosis, secondary to medication noncompliance. Patient has had numerous episodes of DKA, and he was recently discharged on November. Severe anion gap metabolic acidosis, secondary to above and lactic acidosis Hypotension, related to hypovolemia and dehydration Type 1 diabetes mellitus, with poor compliance. Acute kidney injury, likely prerenal related to dehydration Severe hyperkalemia, with hyperacute T waves on ECG Acute leukocytosis, likely reactive to DKA Diabetic neuropathy History of major depression Chronic marijuana use Chronic ongoing nicotine dependence Plan: Patient's medications and labs reviewed Continue DKA protocol Fluid resuscitated with 2 L normal saline bolus in the emergency room, and has normal saline infusing at 500 ML's per hour Give 1 amp sodium bicarb Continue electrolytes every 4 hours Patient will be monitored in the intensive care unit I have personally seen and examined the patient, performed the documentation and the assessment and plan as written. Number of minutes spent on the visit:20 Time with Patient: Greater than 30
[2022-12-31 06:00] LABS: Chloride 99 mmol/L (98-107); Sodium 145 mmol/L (137-145)
[2022-12-31 06:02] LABS: Glucose,Whole Blood >600 mg/dL (70-110)
[2022-12-31 06:10] LABS: Potassium 6.4 mmol/L (3.5-5.1)
[2022-12-31 06:11] LABS: Carbon Dioxide <5 mmol/L (22-30)
[2022-12-31 07:06] LABS: Glucose,Whole Blood >600 mg/dL (70-110)
[2022-12-31 08:06] LABS: Glucose,Whole Blood >600 mg/dL (70-110)
[2022-12-31 08:27] LABS: African American GFR (CKD) 58 (>60 ml/min/1.73 sqM); Blood Urea Nitrogen 32 mg/dL (9-20); Chloride 106 mmol/L (98-107); Non-African American GFR(CKD) 50 (>60 ml/min/1.73 sqM); Phosphorus 8.6 mg/dL (2.5-4.5); Potassium 5.7 mmol/L (3.5-5.1); Sodium 150 mmol/L (137-145)
[2022-12-31 08:35] LABS: Carbon Dioxide <5 mmol/L (22-30)
[2022-12-31 09:00] LABS: Glucose 793 mg/dL (74-99)
[2022-12-31 09:13] LABS: Glucose,Whole Blood 551 mg/dL (70-110)
[2022-12-31 10:08] LABS: Glucose,Whole Blood 415 mg/dL (70-110)
[2022-12-31 11:27] LABS: African American GFR (CKD) 85 (>60 ml/min/1.73 sqM); Anion Gap 24 mmol/L; Blood Urea Nitrogen 30 mg/dL (9-20); Carbon Dioxide 10 mmol/L (22-30); Chloride 115 mmol/L (98-107); Glucose 333 mg/dL (74-99); Non-African American GFR(CKD) 74 (>60 ml/min/1.73 sqM); Phosphorus 2.4 mg/dL (2.5-4.5); Potassium 4.6 mmol/L (3.5-5.1); Sodium 149 mmol/L (137-145)
[2022-12-31 11:36] LABS: Glucose,Whole Blood 285 mg/dL (70-110)
[2022-12-31] MEDS: D5-0.45% NACL WITH KCL 20MEQ/L 1,000 ML IV SCH ×2 (11:51→18:04)
[2022-12-31 12:10] LABS: Glucose,Whole Blood 238 mg/dL (70-110)
[2022-12-31] MEDS: ONDANSETRON 4 MG/2 ML VIAL IVP PRN ×2 (12:47→18:04)
[2022-12-31 12:50] LABS: Glucose,Whole Blood 202 mg/dL (70-110)
[2022-12-31 14:00] LABS: Glucose,Whole Blood 178 mg/dL (70-110)
[2022-12-31 14:55] LABS: Glucose,Whole Blood 170 mg/dL (70-110)
[2022-12-31 16:07] LABS: Glucose,Whole Blood 140 mg/dL (70-110)
[2022-12-31 17:04] LABS: Glucose,Whole Blood 137 mg/dL (70-110)
[2022-12-31 17:58] LABS: Glucose,Whole Blood 113 mg/dL (70-110)
[2022-12-31 19:00] LABS: Glucose,Whole Blood 140 mg/dL (70-110)
[2022-12-31 19:56] LABS: Glucose,Whole Blood 185 mg/dL (70-110)
[2022-12-31 20:12] LABS: Potassium 4.3 mmol/L (3.5-5.1)
[2022-12-31 21:03] LABS: Glucose,Whole Blood 216 mg/dL (70-110)
[2022-12-31 22:05] LABS: Glucose,Whole Blood 238 mg/dL (70-110)
[2022-12-31 23:07] LABS: Glucose,Whole Blood 292 mg/dL (70-110)
[2022-12-31 23:41] LABS: African American GFR (CKD) >90 (>60 ml/min/1.73 sqM); Anion Gap 10 mmol/L; Blood Urea Nitrogen 26 mg/dL (9-20); Calcium 8.1 mg/dL (8.4-10.2); Carbon Dioxide 21 mmol/L (22-30); Chloride 113 mmol/L (98-107); Glucose 261 mg/dL (74-99); Non-African American GFR(CKD) >90 (>60 ml/min/1.73 sqM); Potassium 4.4 mmol/L (3.5-5.1); Sodium 144 mmol/L (137-145)
[2023-01-01 00:03] LABS: Glucose,Whole Blood 301 mg/dL (70-110)
[2023-01-01] MEDS: D5-0.45% NACL WITH KCL 20MEQ/L 1,000 ML IV SCH ×2 (01:04→07:01)
[2023-01-01 01:07] LABS: Glucose,Whole Blood 239 mg/dL (70-110)
[2023-01-01] MEDS: ONDANSETRON 4 MG/2 ML VIAL IVP PRN (01:33)
[2023-01-01] MEDS: SODIUM CHLORIDE 0.9% 1,000 ML IV SCH ×2 (01:36→06:06)
[2023-01-01 02:06] LABS: Glucose,Whole Blood 275 mg/dL (70-110)
--- NOTE | 2023-01-01 02:41 | HP ---
HISTORY AND PHYSICAL HISTORY OF PRESENT ILLNESS: This is another of many admissions for this 27-year-old uncontrolled type 1 insulin- dependent diabetes mellitus, who is extremely noncompliant. He comes into the hospital over the last few months in DKA because he would not take his insulin. He was just in [place] several days ago. He came in at this time with a blood sugar of 1300 and a pH of 6.8. The gap was 26. REVIEW OF SYSTEMS: Unobtainable. He is very lethargic. Past medical history, family history and personal and social histories are detailed in all of his recent and remote records. He is very depressed and is on Facebook all time talking about how he is being told that he only has a year to live. PHYSICAL EXAMINATION: VITAL SIGNS: Blood pressure is 98/57 with a pulse of 114. GENERAL: He is dehydrated and semi comatose. HEAD, EARS, EYES, NOSE, MOUTH AND THROAT: Grossly normal. CHEST: Clear. CARDIAC: Normal. ABDOMEN: Soft, nontender. IMPRESSION: 1. Diabetic ketoacidosis. 2. Metabolic acidosis, none. 3. Encephalopathy. 4. Gastroparesis. 5. Peripheral neuropathy. 6. Major depression. PLAN: 1. Bed rest. 2. IV fluids. 3. ICU management. 4. Manage DKA. MMODL / IJN: [id number] /
[2023-01-01 03:07] LABS: Glucose,Whole Blood 231 mg/dL (70-110)
[2023-01-01 04:06] LABS: Glucose,Whole Blood 229 mg/dL (70-110)
[2023-01-01 04:46] LABS: African American GFR (CKD) >90 (>60 ml/min/1.73 sqM); Anion Gap 9 mmol/L; Blood Urea Nitrogen 21 mg/dL (9-20); Carbon Dioxide 22 mmol/L (22-30); Chloride 114 mmol/L (98-107); Glucose 190 mg/dL (74-99); Non-African American GFR(CKD) >90 (>60 ml/min/1.73 sqM); Potassium 3.9 mmol/L (3.5-5.1); Sodium 145 mmol/L (137-145)
[2023-01-01 05:05] LABS: Glucose,Whole Blood 186 mg/dL (70-110)
[2023-01-01 05:58] LABS: Glucose,Whole Blood 154 mg/dL (70-110)
[2023-01-01 06:47] LABS: Glucose,Whole Blood 121 mg/dL (70-110)
[2023-01-01] MEDS ORDERED: INSULIN NPH 100 UNIT/ML 10 ML VIAL SQ ONE (07:15)
[2023-01-01 08:09] LABS: Glucose,Whole Blood 123 mg/dL (70-110)
[2023-01-01] MEDS: INSULIN ASPART (NovoLOG) 100 UNIT/ML VIAL SQ SCH ×7 (08:29→20:50)
[2023-01-01] MEDS: INSULIN DETEMIR (LEVEMIR) 100 UNIT/ML SYR SQ SCH (08:30)
[2023-01-01 08:58] LABS: HCT 31.8 % (39.0-53.0); HGB 10.6 gm/dL (13.0-17.5); MCH 31.5 pg (25.0-35.0); MCHC 33.4 g/dL (31.0-37.0); Mean Platelet Volume 7.8; Platelet Count 411 k/uL (150-450); RBC 3.38 m/uL (4.30-5.90); RDW 15.3 % (11.5-15.5); WBC 27.5 k/uL (3.8-10.6)
[2023-01-01 08:59] LABS: MCV 94.1 fL (80.0-100.0)
[2023-01-01 10:24] VITALS: BMI 22.1
--- NOTE | 2023-01-01 10:30 | P.PN ---
Subjective Progress Note Date: 01/01/23 Principal diagnosis: Acute DKA I am seeing this patient in consultation today 12/31/2022 for acute diabetic ketoacidosis. This is a 27-year-old white male with past medical history significant for type 1 diabetes mellitus and medication noncompliance. Patient has had numerous hospital admissions for diabetic ketoacidosis, and was just discharged from the hospital on November. Patient was brought in by EMS with complaints of altered mental status and vomiting. He was found to be in DKA. Serum bicarb was less than 5, anion gap unmeasurable, glucose 1272, and he was a cetone positive. Patient has been started on the DKA protocol. Insulin is currently infusing at 7 units per hour. Blood pressure is hypotensive, and he is currently being fluid resuscitated. He has received a total of 2 L normal saline bolus and has normal saline infusing at 500 ML's per hour. He is hyperkalemic with a potassium of 6.9, and there are hyperacute T waves on bedside ECG. VBG shows severe anion gap metabolic acidosis with pH of 6.86. CBC on arrival shows leukocytosis with a WBC count of 47.4, hemoglobin 12.2, hematocrit 44.1, platelets 573. BMP on arrival shows sodium 137, potassium 6.9, chloride 88, serum bicarb less than 5, BUN 33, creatinine 2.43. There is a component of acute kidney injury. UA not significant for UTI. Patient is currently lying in bed, on 3 L/m nasal cannula, and is minimally responsive to verbal stimuli. When stimulated he will look at you, but does not follow any commands. He has kussmaul respirations. Patient will be monitored in the in tensive care unit. Reevaluated today on 01/01/2023, patient is doing much better today, his anion gap has completely closed he has a bit of a leukemoid reaction with WBC count of 27.5, has been noted on his previous admissions with DKA. At any rate the patient is doing great, I plan to transfer the patient out of the ICU to a regular medical floor or his primary care physician could consider discharge planning and follow-up on outpatient basis with his primary care and with mail room. Electrolytes today are normal BUN is 21 creatinine 0.73 and his anion gap is 9. Blood sugar is 123. Objective - Vital Signs Vital signs: Vital Signs Temp 97.7 F 01/01/23 08:00 Pulse 102 H 01/01/23 08:00 Resp 12 01/01/23 08:00 BP 107/77 01/01/23 08:00 Pulse Ox 96 01/01/23 08:00 FiO2 Intake & Output 12/31/22 01/01/23 01/01/23 18:59 06:59 18:59 Intake Total 2172.529 3279.730 350 Output Total 2100 510 Balance 72.529 2769.730 350 Weight 65.9 kg 65.9 kg Intake: IV 3100 350 D5-0.45% NaCl with KCl 1800 150 20Meq/l 1,000 ml @ 50 mls /hr IV .Q20H YAEL Rx#: [id number] Sodium Chloride 0.9% 1, 1300 200 000 ml @ 200 mls/hr IV . Q5H YAEL Rx#:[id number] Intake, IV Titration 2172.529 179.730 Amount D5-0.45% NaCl with KCl 1050 150 20Meq/l 1,000 ml @ 50 mls /hr IV .Q20H YAEL Rx#: [id number] Insulin Regular 100 unit 122.529 29.730 In Sodium Chloride 0.9% 100 ml @ 0.1 UNITS/KG/HR 6.414 mls/hr IV .[id number] YAEL Rx#:[id number] Sodium Chloride 0.9% 1, 1000 000 ml @ 200 mls/hr IV . Q5H YAEL Rx#:[id number] Output: Urine 2100 510 Other: Voiding Method Urinal Urinal Urinal - Exam Physical Exam: Revealed a 27-year-old in no distress Head: Atraumatic normocephalic. HEENT:[Neck is supple.] [No neck masses.] [No thyromegaly.] [No JVD.] Chest: [Clear throughout, no crackles, no rhonchi, no wheezes.] Cardiac Exam: [Normal S1 and S2, no S3 gallop, no murmur.] Abdomen: [Soft, nontender, no megaly, no rebound, no guarding, normal bowel sounds.] Extremities: [No clubbing, no edema, no cyanosis.] Neurological Exam: [No focal neurologic deficit.] Psychiatric: Depressed mood, flat affect, otherwise unremarkable. - Labs CBC & Chem 7: 01/01/23 04:18 01/01/23 04:18 Labs: Abnormal Lab Results - Last 24 Hours (Table) 12/31/22 12/31/22 12/31/22 Range/Units 11:00 11:00 11:34 WBC (3.8-10.6) k/uL RBC (4.30-5.90) m/uL Hgb (13.0-17.5) gm/dL Hct (39.0-53.0) % Sodium 149 H (137-145) mmol/L Chloride 115 H (98-107) mmol/L Carbon Dioxide 10 L (22-30) mmol/L BUN 30 H (9-20) mg/dL Creatinine 1.34 H (0.66-1.25) mg/dL Glucose 333 H (74-99) mg/dL POC Glucose (mg/dL) 285 H (70-110) mg/dL Plasma Lactic Acid Len 3.7 H* (0.7-2.0) mmol/L Calcium (8.4-10.2) mg/dL Phosphorus 2.4 L (2.5-4.5) mg/dL 12/31/22 12/31/22 12/31/22 Range/Units 12:09 12:49 13:59 WBC (3.8-10.6) k/uL RBC (4.30-5.90) m/uL Hgb (13.0-17.5) gm/dL Hct (39.0-53.0) % Sodium (137-145) mmol/L Chloride (98-107) mmol/L Carbon Dioxide (22-30) mmol/L BUN (9-20) mg/dL Creatinine (0.66-1.25) mg/dL Glucose (74-99) mg/dL POC Glucose (mg/dL) 238 H 202 H 178 H (70-110) mg/dL Plasma Lactic Acid Len (0.7-2.0) mmol/L Calcium (8.4-10.2) mg/dL Phosphorus (2.5-4.5) mg/dL 12/31/22 12/31/22 12/31/22 Range/Units 14:31 14:54 16:06 WBC (3.8-10.6) k/uL RBC (4.30-5.90) m/uL Hgb (13.0-17.5) gm/dL Hct (39.0-53.0) % Sodium (137-145) mmol/L Chloride (98-107) mmol/L Carbon Dioxide (22-30) mmol/L BUN (9-20) mg/dL Creatinine (0.66-1.25) mg/dL Glucose (74-99) mg/dL POC Glucose (mg/dL) 170 H 140 H (70-110) mg/dL Plasma Lactic Acid Len 2.9 H* (0.7-2.0) mmol/L Calcium (8.4-10.2) mg/dL Phosphorus (2.5-4.5) mg/dL 12/31/22 12/31/22 12/31/22 Range/Units 17:01 17:57 18:58 WBC (3.8-10.6) k/uL RBC (4.30-5.90) m/uL Hgb (13.0-17.5) gm/dL Hct (39.0-53.0) % Sodium (137-145) mmol/L Chloride (98-107) mmol/L Carbon Dioxide (22-30) mmol/L BUN (9-20) mg/dL Creatinine (0.66-1.25) mg/dL Glucose (74-99) mg/dL POC Glucose (mg/dL) 137 H 113 H 140 H (70-110) mg/dL Plasma Lactic Acid Len (0.7-2.0) mmol/L Calcium (8.4-10.2) mg/dL Phosphorus (2.5-4.5) mg/dL 12/31/22 12/31/22 12/31/22 Range/Units 19:30 19:54 21:02 WBC (3.8-10.6) k/uL RBC (4.30-5.90) m/uL Hgb (13.0-17.5) gm/dL Hct (39.0-53.0) % Sodium 147 H (137-145) mmol/L Chloride 114 H (98-107) mmol/L Carbon Dioxide 21 L (22-30) mmol/L BUN (9-20) mg/dL Creatinine (0.66-1.25) mg/dL Glucose (74-99) mg/dL POC Glucose (mg/dL) 185 H 216 H (70-110) mg/dL Plasma Lactic Acid Len (0.7-2.0) mmol/L Calcium (8.4-10.2) mg/dL Phosphorus (2.5-4.5) mg/dL 12/31/22 12/31/22 12/31/22 Range/Units 22:03 23:05 23:06 WBC (3.8-10.6) k/uL RBC (4.30-5.90) m/uL Hgb (13.0-17.5) gm/dL Hct (39.0-53.0) % Sodium (137-145) mmol/L Chloride 113 H (98-107) mmol/L Carbon Dioxide 21 L (22-30) mmol/L BUN 26 H (9-20) mg/dL Creatinine (0.66-1.25) mg/dL Glucose 261 H (74-99) mg/dL POC Glucose (mg/dL) 238 H 292 H (70-110) mg/dL Plasma Lactic Acid Len (0.7-2.0) mmol/L Calcium 8.1 L (8.4-10.2) mg/dL Phosphorus (2.5-4.5) mg/dL 01/01/23 01/01/23 01/01/23 Range/Units 00:02 01:06 02:05 WBC (3.8-10.6) k/uL RBC (4.30-5.90) m/uL Hgb (13.0-17.5) gm/dL Hct (39.0-53.0) % Sodium (137-145) mmol/L Chloride (98-107) mmol/L Carbon Dioxide (22-30) mmol/L BUN (9-20) mg/dL Creatinine (0.66-1.25) mg/dL Glucose (74-99) mg/dL POC Glucose (mg/dL) 301 H 239 H 275 H (70-110) mg/dL Plasma Lactic Acid Len (0.7-2.0) mmol/L Calcium (8.4-10.2) mg/dL Phosphorus (2.5-4.5) mg/dL 01/01/23 01/01/23 01/01/23 Range/Units 03:05 04:04 04:18 WBC (3.8-10.6) k/uL RBC (4.30-5.90) m/uL Hgb (13.0-17.5) gm/dL Hct (39.0-53.0) % Sodium (137-145) mmol/L Chloride 114 H (98-107) mmol/L Carbon Dioxide (22-30) mmol/L BUN 21 H (9-20) mg/dL Creatinine (0.66-1.25) mg/dL Glucose 190 H (74-99) mg/dL POC Glucose (mg/dL) 231 H 229 H (70-110) mg/dL Plasma Lactic Acid Len (0.7-2.0) mmol/L Calcium 8.0 L (8.4-10.2) mg/dL Phosphorus (2.5-4.5) mg/dL 01/01/23 01/01/23 01/01/23 Range/Units 04:18 05:03 05:57 WBC 27.5 H (3.8-10.6) k/uL RBC 3.38 L (4.30-5.90) m/uL Hgb 10.6 L (13.0-17.5) gm/dL Hct 31.8 L (39.0-53.0) % Sodium (137-145) mmol/L Chloride (98-107) mmol/L Carbon Dioxide (22-30) mmol/L BUN (9-20) mg/dL Creatinine (0.66-1.25) mg/dL Glucose (74-99) mg/dL POC Glucose (mg/dL) 186 H 154 H (70-110) mg/dL Plasma Lactic Acid Len (0.7-2.0) mmol/L Calcium (8.4-10.2) mg/dL Phosphorus (2.5-4.5) mg/dL 01/01/23 01/01/23 Range/Units 06:45 08:08 WBC (3.8-10.6) k/uL RBC (4.30-5.90) m/uL Hgb (13.0-17.5) gm/dL Hct (39.0-53.0) % Sodium (137-145) mmol/L Chloride (98-107) mmol/L Carbon Dioxide (22-30) mmol/L BUN (9-20) mg/dL Creatinine (0.66-1.25) mg/dL Glucose (74-99) mg/dL POC Glucose (mg/dL) 121 H 123 H (70-110) mg/dL Plasma Lactic Acid Len (0.7-2.0) mmol/L Calcium (8.4-10.2) mg/dL Phosphorus (2.5-4.5) mg/dL Assessment and Plan Assessment: Impression: Acute diabetic ketoacidosis, secondary to medication noncompliance. Patient has had numerous episodes of DKA, and he was recently discharged on November. Severe anion gap metabolic acidosis, secondary to above and lactic acidosis, resolved Hypotension, related to hypovolemia and dehydration, resolved Type 1 diabetes mellitus, with poor compliance. Acute kidney injury, resolved Severe hyperkalemia, resolved Acute leukemoid reaction secondary to DKA Diabetic neuropathy History of major depression Chronic marijuana use Chronic ongoing nicotine dependence Recommendation: Continue insulin as per sliding scale/protocol. Follow Accu-Cheks. Continue IV fluid Advanced diet, ADA diet Transfer patient out of the ICU or possibly consider discharging the patient home, this decision will be made by the admitting physician. Will follow as needed Time with Patient: Less than 30
[2023-01-01 11:31] LABS: Glucose,Whole Blood 99 mg/dL (70-110)
[2023-01-01] MEDS ORDERED: GABAPENTIN 300 MG CAP PO PRN (13:08)
[2023-01-01] MEDS ORDERED: NON FORMULARY DRUG (Insulin Glargine 100 UNIT/ML Ml) SQ SCH (13:15)
[2023-01-01 16:15] LABS: Glucose,Whole Blood 65 mg/dL (70-110)
[2023-01-01 16:36] LABS: Glucose,Whole Blood 76 mg/dL (70-110)
[2023-01-01] MEDS ORDERED: NON FORMULARY DRUG (Insulin Lispro (Humalog) 100 UNIT/ML Ml) SQ SCH (17:30)
[2023-01-01 19:51] LABS: Glucose,Whole Blood 67 mg/dL (70-110)
[2023-01-01 20:34] LABS: Glucose,Whole Blood 105 mg/dL (70-110)
[2023-01-01] MEDS: MIRTAZAPINE 15 MG TAB PO SCH (22:08)
[2023-01-01] MEDS: FAMOTIDINE 20 MG TAB PO SCH (22:08)
[2023-01-02 01:49] LABS: Glucose,Whole Blood 123 mg/dL (70-110)
[2023-01-02] MEDS: INSULIN ASPART (NovoLOG) 100 UNIT/ML VIAL SQ SCH ×8 (01:59→20:35)
--- NOTE | 2023-01-02 03:58 | PN ---
PROGRESS NOTE DATE OF SERVICE: 01/01/2023 CHIEF COMPLAINT: DKA. HISTORY OF PRESENT ILLNESS: This gentleman is awake and alert. Vital signs are improving. His blood pressure is slightly high intermittently. REVIEW OF SYSTEMS: He denies nausea and vomiting at this time. He denies chest pain, abdominal pain, shortness of breath, etc. PHYSICAL EXAMINATION: CHEST: Clear. CARDIAC: Demonstrated sinus tachycardia. ABDOMEN: Soft, nontender. IMPRESSION: 1. Diabetic ketoacidosis. 2. Dehydration. 3. Gastroparesis. 4. Depression. PLAN: Continue with ICU management. I had a long discussion with the patient as to why he continues to do this to himself. He has always stated in the past that he did not understand why his blood sugars are going up because he is not taking his insulin and he affirmed that. He was asked if he was trying to kill himself to which he responded; "I do this in knowing that I might not wake up and I don't care." So, he was informed that this is related to his depression and is a form of inactive suicide by noncompliance. He is extremely depressed and is definitely a danger to himself. Psychiatry has been consulted (again). MMODL / IJN: [id number] /
[2023-01-02 05:36] LABS: Glucose,Whole Blood 193 mg/dL (70-110)
[2023-01-02] MEDS: INSULIN DETEMIR (LEVEMIR) 100 UNIT/ML SYR SQ SCH (07:44)
[2023-01-02] MEDS: D5-0.45% NACL WITH KCL 20MEQ/L 1,000 ML IV SCH (07:52)
[2023-01-02] MEDS: FAMOTIDINE 20 MG TAB PO SCH ×2 (08:03→22:21)
[2023-01-02] MEDS: LOSARTAN 25 MG TAB PO SCH (08:03)
--- NOTE | 2023-01-02 10:49 | CDI ---
Documentation Clarification Form Date: 01/02/2023 10:28:00 AM From: Luanne Bacon RN CCDS Phone: [phone] Admit Date: 12/31/2022 03:51:00 AM Patient Name: Raul Marquez Visit Number: [id number] Discharge Date: ATTENTION: The Clinical Documentation Specialists (CDI) and [facility] Coding Staff appreciate your assistance in clarifying documentation. Please respond to the clarification below the line at the bottom and electronically sign. The CDI & [facility] Coding staff will review the response and follow-up if needed. Please note: Queries are made part of the Legal Health Record. If you have any questions, please contact the author of this message via ITS. Dr. Brown Valenzuela Encephalopathy is documented 12/31, H&P. Additional clarification regarding the type of encephalopathy is requested. History/Risk Factors:27-year-old male presents to the ED via EMS for altered level of consciousness and vomiting. Medical History: DM1, DKA, Neuropathy [place] feet; Anxiety major depression, suicide attempts, chronic marijuana use and nicotine dependence. 12/31, ED note. Clinical Indicators: 12/31, Labs: Wbc 47.4; Neutrophils 38.30; KCL 6.9; Blood Glucose 1272; lactic acid 9.4; Magnesium 3.2 and Acetone, Qual Positive. 12/31, VSS: B/P 62/49; HR 102; RR 28; SpO2 89% Treatment: 0.9ns 1L bolus IV bolus; Humulin R 6.4 Units bolus; Insulin Human Regular 100unit in sodium chloride 0.1unit/kg/hr; Sodium Bicarbonate 50ml IV x 1; 0.9ns 500cc bolus; D5%-1/2ns Kcl 20meq IV 50cc/hr; Humulin N 7units sq x1; Novolog 7 units sq AC TID YAEL; Levemir 30umits Sq daily Please clarify the type of encephalopathy, if known: [ ] Metabolic Encephalopathy [ ] Other, please specify [ ] Unable to determine withdrawn per [place] (Template Last Revised: July 2020) MTDD
[2023-01-02 11:01] LABS: Glucose,Whole Blood 141 mg/dL (70-110)
[2023-01-02] MEDS: ONDANSETRON 4 MG/2 ML VIAL IVP PRN (13:56)
--- NOTE | 2023-01-02 14:55 | PN ---
PROGRESS NOTE CHIEF COMPLAINT: DKA and depression. HISTORY OF PRESENT ILLNESS: This gentleman is doing fairly well. Numbers are improving. He has a sitter given his tendency to think about suicide. PHYSICAL EXAMINATION: CHEST: Clear. Cardiac : Normal. ABDOMEN: Soft and nontender. IMPRESSION: 1. Diabetic ketoacidosis. 2. Noncompliant type 1 insulin-dependent diabetic. 3. Depression. 4. Gastroparesis. 5. Peripheral neuropathy. PLAN: Continue to improve his metabolic state while he is further assessed by Psychiatry. MMODL / IJN: [id number] /
[2023-01-02 16:44] LABS: Glucose,Whole Blood 91 mg/dL (70-110)
[2023-01-02 20:33] LABS: Glucose,Whole Blood 90 mg/dL (70-110)
[2023-01-02] MEDS: MIRTAZAPINE 15 MG TAB PO SCH (22:21)
[2023-01-03] MEDS: D5-0.45% NACL WITH KCL 20MEQ/L 1,000 ML IV SCH ×2 (00:11→20:11)
[2023-01-03 01:12] LABS: Glucose,Whole Blood 118 mg/dL (70-110)
[2023-01-03] MEDS: INSULIN ASPART (NovoLOG) 100 UNIT/ML VIAL SQ SCH ×8 (01:20→20:11)
[2023-01-03 06:21] LABS: Glucose,Whole Blood 197 mg/dL (70-110)
[2023-01-03] MEDS: INSULIN DETEMIR (LEVEMIR) 100 UNIT/ML SYR SQ SCH (06:34)
[2023-01-03] MEDS: FAMOTIDINE 20 MG TAB PO SCH ×3 (08:27→20:14)
[2023-01-03] MEDS: LOSARTAN 25 MG TAB PO SCH ×2 (08:27→08:28)
[2023-01-03 11:12] LABS: Glucose,Whole Blood 115 mg/dL (70-110)
--- NOTE | 2023-01-03 13:18 | P.CN ---
Psychiatric Consult - . Consult date: 01/03/23 Consult:: 01/03/23 13:16 Head Of English reviewed the chart and called for South to speak with Kaley RN about patients case and condition. Patient is admitted for DKA and currently being treated on the medical floors. Patient has a long history of chronic depression, noncompliance with treatment and also medical treatment for his type 1 diabetes. Head Of English has seen patient several times in the past and offered psychiatric services and treatment patient has refused care and also refused [facility] follow-up. financial underwriter asked nurse to contact primary provider to return phone call to discuss patients case before patient can be seen. Thank you
[2023-01-03 16:28] LABS: Glucose,Whole Blood 120 mg/dL (70-110)
[2023-01-03 20:04] LABS: Glucose,Whole Blood 109 mg/dL (70-110)
[2023-01-03] MEDS: MIRTAZAPINE 15 MG TAB PO SCH (20:14)
--- NOTE | 2023-01-03 22:41 | PN ---
PROGRESS NOTE DATE OF SERVICE: 01/03/2023 CHIEF COMPLAINT: DKA and depression. HISTORY OF PRESENT ILLNESS: This gentleman is stable and doing well. He still has a sitter. Psychiatry is not seeing the patient. I did try to reach the psychiatrist today in response to his requesting that I call, when I got the answering service. GRACE / ALDEN: [id number] /
[2023-01-04 02:17] LABS: Glucose,Whole Blood 98 mg/dL (70-110)
[2023-01-04] MEDS: INSULIN ASPART (NovoLOG) 100 UNIT/ML VIAL SQ SCH ×7 (03:27→20:49)
[2023-01-04 06:00] LABS: Glucose,Whole Blood 270 mg/dL (70-110)
[2023-01-04] MEDS: INSULIN DETEMIR (LEVEMIR) 100 UNIT/ML SYR SQ SCH (06:46)
[2023-01-04] MEDS: LOSARTAN 25 MG TAB PO SCH (08:00)
[2023-01-04] MEDS: FAMOTIDINE 20 MG TAB PO SCH ×2 (08:00→20:49)
[2023-01-04 11:07] LABS: Glucose,Whole Blood 76 mg/dL (70-110)
[2023-01-04 12:25] LABS: Basophils # (A) 0.1 k/uL (0-0.2); Basophils % (A) 1 %; Eosinophils # (A) 0.3 k/uL (0-0.7); Eosinophils % (A) 3 %; HCT 37.1 % (39.0-53.0); HGB 12.4 gm/dL (13.0-17.5); Lymphocytes # (A) 3.2 k/uL (1.0-4.8); Lymphocytes % (A) 36 %; MCH 31.2 pg (25.0-35.0); MCHC 33.5 g/dL (31.0-37.0); MCV 93.1 fL (80.0-100.0); Mean Platelet Volume 7.3; Monocytes # (A) 0.5 k/uL (0-1.0); Monocytes % (A) 6 %; Neutrophils # (A) 4.6 k/uL (1.3-7.7); Neutrophils % (A) 52 %; Platelet Count 287 k/uL (150-450); RBC 3.99 m/uL (4.30-5.90); RDW 14.6 % (11.5-15.5); WBC 8.8 k/uL (3.8-10.6)
--- NOTE | 2023-01-04 13:07 | PN ---
PROGRESS NOTE DATE OF SERVICE: 01/04/2023 I am covering for Dr. Valenzuela. SUBJECTIVE: This 27-year-old gentleman admitted with diabetic ketoacidosis, also had elevated WBC. Psychiatric consultation also pending. No chest pain, no palpitation. Blood sugars improving. OBJECTIVE: VITAL SIGNS: Pulse is 95, blood pressure n respirations 19. CHEST: Clear to auscultation. ABDOMEN: Soft. NERVOUS SYSTEM: No focal deficits. LABS: Yesterday's labs, WBC 27.5. ASSESSMENT: 1. Acute diabetic ketoacidosis. 2. Elevated WBC of undetermined etiology. 3. Possible suicidal ideations. 4. Diabetes. 5. History of asthma. 6. Multiple medical issues. RECOMMENDATIONS AND DISCUSSION: This 27-year-old gentleman presented with multiple complex medical issues, we will monitor the patient closely. I would recommend repeat labs, CBC, CMP and Dr. Valenzuela will follow tomorrow and follow up with psychiatric consultation. MMODL / IJN: [id number] / MTDD
[2023-01-04 15:08] LABS: Glucose,Whole Blood 46 mg/dL (70-110)
[2023-01-04] MEDS: D5-0.45% NACL WITH KCL 20MEQ/L 1,000 ML IV SCH (15:43)
[2023-01-04 16:20] LABS: Glucose,Whole Blood 109 mg/dL (70-110)
[2023-01-04 20:38] LABS: Glucose,Whole Blood 301 mg/dL (70-110)
[2023-01-04] MEDS: MIRTAZAPINE 15 MG TAB PO SCH (20:49)
[2023-01-05 02:03] LABS: Glucose,Whole Blood 198 mg/dL (70-110)
[2023-01-05] MEDS: INSULIN ASPART (NovoLOG) 100 UNIT/ML VIAL SQ SCH ×5 (02:14→21:04)
[2023-01-05 05:59] LABS: Glucose,Whole Blood 370 mg/dL (70-110)
[2023-01-05] MEDS: INSULIN DETEMIR (LEVEMIR) 100 UNIT/ML SYR SQ SCH (06:07)
[2023-01-05] MEDS: FAMOTIDINE 20 MG TAB PO SCH ×2 (08:21→21:04)
[2023-01-05] MEDS: LOSARTAN 25 MG TAB PO SCH (08:21)
[2023-01-05 10:47] LABS: Basophils # (A) 0.07 X 10*3/uL (0.00-0.10); Basophils % (A) 0.7 %; Eosinophils # (A) 0.31 X 10*3/uL (0.04-0.35); Eosinophils % (A) 3.3 %; HCT 39.5 % (39.6-50.0); HGB 12.7 d/dL (13.0-17.0); Lymphocytes # (A) 3.05 X 10*3/uL (0.90-5.00); Lymphocytes % (A) 32.4 %; MCH 29.6 pg (27.0-32.0); MCHC 32.2 d/dL (32.0-37.0); MCV 92.1 FL (80.0-97.0); Mean Platelet Volume 9.1 FL (9.5-12.2); Monocytes # (A) 0.76 X 10*3/uL (0.20-1.00); Monocytes % (A) 8.1 %; NRBC Per 100 WBC 0 X 10*3/uL (0.00-0.01); Neutrophils # (A) 5.17 X 10*3/uL (1.80-7.70); Neutrophils % (A) 55.1 %; Platelet Count 292 X 10*3/uL (140-440); RBC 4.29 X 10*6/uL (4.40-5.60); RDW 14.4 % (11.5-14.5)
[2023-01-05 11:37] LABS: Glucose,Whole Blood 156 mg/dL (70-110)
[2023-01-05] MEDS: D5-0.45% NACL WITH KCL 20MEQ/L 1,000 ML IV SCH (11:56)
[2023-01-05 12:21] LABS: BUN/Creat Ratio 28.88 Ratio (12.00-20.00); Blood Urea Nitrogen 23.1 mg/dL (9.0-27.0); Calcium 9.4 mg/dL (8.7-10.3); Carbon Dioxide 27.2 mmol/L (21.6-31.8); Chloride 98 mmol/L (96-109); Glucose 396 mg/dL (70-110); Potassium 6.2 mmol/L (3.5-5.5); Sodium 137 mmol/L (135-145)
[2023-01-05 16:36] LABS: Glucose,Whole Blood 265 mg/dL (70-110)
[2023-01-05 19:37] VITALS: RESP 16
--- NOTE | 2023-01-05 19:50 | P.PN ---
Progress Note - Text Progress Note Date: 01/05/23 Psychiatry consult follow-up note: Interval History: Patient was seen sitting up in his chair with sitter at bedside to maintain safety. He was directable and agreeable to speak with comic book writer in the office. He reports he is now living with his mother who will help him with his insulin. He reports he realizes that his marijuana use was causing him to have hyperemesis, and would then not want to take his insulin because of the nausea/vomiting. He plans to discontinue the cannabis use and try to take him insulin on time. He denies he is depressed except he worries about how much damage he has done to his body. At this time, patient denies any suicidal or homical ideation, intent or plan. Patient denies any auditory, visual hallucinations and denies any paranoia or delusions. Patient denies any side effects from the medications and has been compliant with meds. He is future-oriented, goal-directed, and feels safe and ready for discharge home. Mental Status Exam: General Appearance: Patient appears to be stated age is alert, directable, and cooperative. Behavior: Patient is calmly seated without any agitated behavior. Speech: Patient's speech is fluent and non-pressured. Mood/Affect: Mood is improving mildly, affect is congruent and constricted. Suicidality/Homicidality: Patient denies having any suicidal or homicidal ideation intent or plan. Perceptions: Patient denies any visual hallucinations and denies any auditory hallucinations. Though content/process: There is no evidence of any delusional thought content and thought process is linear and goal-directed. Memory and concentration: AOX3, grossly intact for the purposes of this session Judgment and insight: Improving mildly Assessment: History of depressive disorder, unspecified R/O cannabis induced depressive disorder Cannabis use disorder Rule out personality disorder Plan: -At this time patient DOES NOT meet criteria for inpatient psychiatric admission. -Recommend follow-up with [facility] for counseling services and substance abuse treatment. -At this time, patient is denying suicidal or homicidal ideations. May discontinue sitter at this time. Continue to evaluate safety and reinstate sitter if safety concerns arise. -Communicated plan to patient's nurse. -Will sign off at this time. -Please contact with any questions.
[2023-01-05 20:16] LABS: Glucose,Whole Blood 219 mg/dL (70-110)
[2023-01-05] MEDS: MIRTAZAPINE 15 MG TAB PO SCH (21:04)
--- NOTE | 2023-01-05 22:56 | PN ---
PROGRESS NOTE CHIEF COMPLAINT: DKA and depression. HISTORY OF PRESENT ILLNESS: This gentleman remains stable, and we are waiting for another psychiatric evaluation. He has a sitter. At the present time, biochemistries are back to normal as well as his blood pressure. He states that he does not think he is suicidal, but he does not care if he dies by his own hand, which is, in his case, not taking his insulin. MMODL / IJN: [id number] /
[2023-01-05 23:04] LABS: Glucose,Whole Blood 45 mg/dL (70-110)
[2023-01-05 23:22] LABS: Glucose,Whole Blood 72 mg/dL (70-110)
[2023-01-05 23:41] LABS: Glucose,Whole Blood 153 mg/dL (70-110)
[2023-01-06 02:21] LABS: Glucose,Whole Blood 236 mg/dL (70-110)
[2023-01-06] MEDS: INSULIN ASPART (NovoLOG) 100 UNIT/ML VIAL SQ SCH ×4 (02:59→17:00)
[2023-01-06 05:40] LABS: Glucose,Whole Blood 170 mg/dL (70-110)
[2023-01-06] MEDS: INSULIN DETEMIR (LEVEMIR) 100 UNIT/ML SYR SQ SCH (06:36)
--- NOTE | 2023-01-06 07:35 | PN ---
PROGRESS NOTE DATE OF SERVICE: 01/03/2023 CHIEF COMPLAINT: DKA and depression. HISTORY OF PRESENT ILLNESS: This gentleman is doing very well. He is stable. Blood sugars are down. He is here to be seen by Psychiatry. He is on suicide precautions now. PHYSICAL EXAMINATION: GENERAL: He is awake and alert. CHEST: Clear. CARDIAC: Normal. ABDOMEN: Soft, nontender. LABORATORY DATA: Blood sugars are good. IMPRESSION: 1. Diabetic ketoacidosis. 2. Major depression with suicidal thoughts. PLAN: Await for psychiatric evaluation. Other than that, he could go home. MMODL / IJN: [id number] /
[2023-01-06] MEDS: FAMOTIDINE 20 MG TAB PO SCH (07:48)
[2023-01-06] MEDS: LOSARTAN 25 MG TAB PO SCH (07:51)
[2023-01-06 11:21] LABS: Glucose,Whole Blood 247 mg/dL (70-110)
[2023-01-06] MEDS: D5-0.45% NACL WITH KCL 20MEQ/L 1,000 ML IV SCH (12:34)
[2023-01-06 14:00] VITALS: BP 104/72; PULSE 124; TEMP 98
[2023-01-06 16:31] LABS: Glucose,Whole Blood 227 mg/dL (70-110)
--- NOTE | 2023-01-06 21:11 | DS ---
DISCHARGE SUMMARY CHIEF COMPLAINT: Diabetic ketoacidosis. HISTORY OF PRESENT ILLNESS AND PHYSICAL EXAMINATION: Details of this man's history and physical can be found in the initial workup. LABORATORY STUDIES: While he was in the hospital, he had laboratory studies, details of which can be found in the laboratory section of his chart. COURSE IN THE HOSPITAL: After admission, he was placed on bedrest, started on intravenous fluids and was treated in the ICU for his DKA. When he became more awake and alert, he did state that he wished that he would . He reported that when he does not take his insulin and goes into ketoacidosis that he knows that he may not survive. He had been seen by a psychiatrist numerous times in the past, been admitted to [facility] and also a treatment facility in the [place] area. He is extremely noncompliant with followup for mental health issues. However, Psychiatry was reconsulted and they did not feel that he needed inpatient management. He will go home on his usual activity, diet, and medication. He will be followed up in the office in several days. FINAL DIAGNOSES: 1. Diabetic ketoacidosis. 2. Major depression. 3. Suicidal thoughts. 4. Gastroparesis. 5. Peripheral neuropathy. OPERATIONS: None. CONSULTATIONS: Intensive Medicine and Psychiatry. He is improved. MMODL / IJN: [id number] /
== END 2023-01-06 17:55 | disposition home or self-care (01) | DRG 420 ==
LOC: EC 03:06 → 2SICU 03:51 → 4SSUR 01-01 14:35
PROVIDERS: ADMIT Family Medicine; ATTEND Family Medicine
DX: E10.10 Type 1 diabetes mellitus with ketoacidosis without coma (principal); E86.0 Dehydration; R45.851 Suicidal ideations; E86.1 Hypovolemia; I95.9 Hypotension, unspecified; Z79.4 Long term (current) use of insulin; G93.40 Encephalopathy, unspecified; E10.43 Type 1 diabetes mellitus with diabetic autonomic (poly)neuropathy; E10.649 Type 1 diabetes mellitus with hypoglycemia without coma; E87.5 Hyperkalemia; F17.210 Nicotine dependence, cigarettes, uncomplicated; T38.3X6A Underdosing of insulin and oral hypoglycemic [antidiabetic] drugs, initial encounter; E78.5 Hyperlipidemia, unspecified; Z91.199 Patient's noncompliance with other medical treatment and regimen due to unspecified reason; N17.9 Acute kidney failure, unspecified; K31.84 Gastroparesis; F32.9 Major depressive disorder, single episode, unspecified; F12.10 Cannabis abuse, uncomplicated; Z79.899 Other long term (current) drug therapy; Z91.128 Patient's intentional underdosing of medication regimen for other reason; Z91.148 Patient's other noncompliance with medication regimen for other reason; Z82.49 Family history of ischemic heart disease and other diseases of the circulatory system; X58.XXXA Exposure to other specified factors, initial encounter
CPT/HCPCS: 36415; 80048; 80051; 80053; 80320; 81001; 82009; 82565; 82803; 82947; 83605; 83735; 84100; 84132; 84520; 85025; 85027; 93005; 96360; 99291

== ENCOUNTER 2023-01-23 13:00 | Emergency (ER) | payer OTHER ==
[2023-01-23 13:07] LABS: Glucose,Whole Blood 553 mg/dL (70-110)
[2023-01-23] MEDS ORDERED: diphenhydrAMINE 50 MG/ML 1 ML VIAL IVP STA (13:12)
[2023-01-23] MEDS ORDERED: METOCLOPRAMIDE 5 MG/ML 2 ML VIAL IVP STA (13:12)
[2023-01-23] MEDS ORDERED: SODIUM CHLORIDE 0.9% 2,000 ML IV STA (13:12)
--- NOTE | 2023-01-23 13:21 | ED ---
Nausea/Vomiting/Diarrhea HPI - General Chief complaint: Nausea/Vomiting/Diarrhea Stated complaint: high blood sugar Time Seen by Provider: 01/23/23 13:03 Source: patient, RN notes reviewed Mode of arrival: ambulatory Limitations: no limitations - History of Present Illness Initial comments: 27-year-old male presents emergency Department chief complaint of nausea vomiting hyperglycemia. Patient states that he started not feeling well and is on his way to get is diabetic supplies from his friend's house but states he started vomiting presents emergency from. Patient is well-known to the emergency Department from a history of diabetes has recurrent DKA. Patient denies any chest pain no localized abdominal pain. Patient states he is unsure what his blood sugar is. - Related Data Home Medications Medication Instructions Recorded Confirmed Gabapentin 600 mg PO TID PRN 10/14/22 01/23/23 Famotidine [Pepcid] 20 mg PO BID 12/31/22 01/23/23 INSULIN LISPRO (HumaLOG) [humaLOG] 7 units SQ AC-TID 12/31/22 01/23/23 Insulin Glargine [Lantus Vial] 30 unit SQ DAILY 12/31/22 01/23/23 Mirtazapine 7.5 mg PO HS 12/31/22 01/23/23 Previous Rx's Medication Instructions Recorded Losartan [Cozaar] 25 mg PO DAILY #10 tab 01/06/23 Allergies Allergy/AdvReac Type Severity Reaction Status Date / Time No Known Allergies Allergy Verified 01/23/23 13:58 Review of Systems ROS Statement: Those systems with pertinent positive or pertinent negative responses have been documented in the HPI. ROS Other: All systems not noted in ROS Statement are negative. Past Medical History Past Medical History: Asthma, Diabetes Mellitus, Neurologic Disorder, Skin Disorder Additional Past Medical History / Comment(s): IDDM type I, neuropathy bilateral feet, DKA, eczema. History of Any Multi-Drug Resistant Organisms: None Reported Past Surgical History: Adenoidectomy Additional Past Surgical History / Comment(s): 2003 Recent EGD- gastritis Past Anesthesia/Blood Transfusion Reactions: No Reported Reaction Past Psychological History: Anxiety, Depression Smoking Status: Former smoker Past Alcohol Use History: None Reported Past Drug Use History: None Reported - Past Family History Mother Family Medical History: CVA/TIA Additional Family Medical History / Comment(s): TIA Father Family Medical History: Hyperlipidemia, Hypertension Additional Family Medical History / Comment(s): . General Exam Limitations: no limitations General appearance: alert, in no apparent distress Head exam: Present: atraumatic, normocephalic, normal inspection Eye exam: Present: normal appearance, PERRL, EOMI. Absent: scleral icterus, conjunctival injection, periorbital swelling ENT exam: Present: normal exam, normal oropharynx, mucous membranes moist Neck exam: Present: normal inspection, full ROM. Absent: tenderness, meningismus, lymphadenopathy Respiratory exam: Present: normal lung sounds bilaterally. Absent: respiratory distress, wheezes, rales, rhonchi, stridor Cardiovascular Exam: Present: normal rhythm, tachycardia, normal heart sounds. Absent: systolic murmur, diastolic murmur, rubs, gallop, clicks GI/Abdominal exam: Present: soft, normal bowel sounds. Absent: distended, tenderness, guarding, rebound, rigid Neurological exam: Present: alert, oriented X3 Skin exam: Present: warm, dry, intact, normal color. Absent: rash Course Vital Signs 01/23/23 01/23/23 13:02 13:07 Temperature 96.6 F L 97.6 F Pulse Rate 108 H 85 Respiratory 18 14 Rate Blood Pressure 114/79 131/94 O2 Sat by Pulse 99 96 Oximetry Medical Decision Making - Medical Decision Making Was pt. sent in by a medical professional or institution (JAS Lucero, RADIOLOGY CT TECHNOLOGIST, urgent care, hospital, or skilled nursing...) When possible be specific @ -No Did you speak to anyone other than the patient for history (EMS, parent, family, police, friend...)? What history was obtained from this source @ -No Did you review nursing and triage notes (agree or disagree)? Why? @ -I reviewed and agree with nursing and triage notes Were old charts reviewed (outside hosp., previous admission, EMS record, old E KG, old radiological studies, urgent care reports/EKG's, skilled nursing records)? Report findings @ -Jose multiple prior laboratory studies Differential Diagnosis (chest pain, altered mental status, abdominal pain women, abdominal pain men, vaginal bleeding, weakness, fever, dyspnea, syncope, headache, dizziness, GI bleed, back pain, seizure, CVA, palpatations, mental health, musculoskeletal)? @ -Hyperglycemia, DKA, nausea vomiting EKG interpreted by me (3pts min.). @ -As above X-rays interpreted by me (1pt min.). @ -None done CT interpreted by me (1pt min.). @ -None done U/S interpreted by me (1pt. min.). @ -None done What testing was considered but not performed or refused? (CT, X-rays, U/S, labs)? Why? @ -None What meds were considered but not given or refused? Why? @ -None Did you discuss the management of the patient with other professionals (professionals i.e. DrLinda, PA, RADIOLOGY CT TECHNOLOGIST, lab, RT, psych nurse, marriage and family social worker, water taxi ferry operator, teacher, pharmaceutical officer, case investigator)? Give summary @ -No Was smoking cessation discussed for >3mins.? @ -No Was critical care preformed (if so, how long)? @ -No Were there social determinants of health that impacted care today? How? (Homelessness, low income, unemployed, alcoholism, drug addiction, transportation, low edu. Level, literacy, decrease access to med. care, custodial, rehab)? @ -No Was there de-escalation of care discussed even if they declined (Discuss DNR or withdrawal of care, Hospice)? DNR status @ -No What co-morbidities impacted this encounter? (DM, HTN, Smoking, COPD, CAD, Cancer, CVA, ARF, Chemo, Hep., AIDS, mental health diagnosis, sleep apnea, morbid obesity)? @ -Diabetes uncontrolled Was patient admitted / discharged? Hospital course, mention meds given and route, prescriptions, significant lab abnormalities, going to OR and other pertinent info. @ -Discharge patient is well-hydrated patient did have hyperglycemia patient presented with nausea vomiting symptoms have improved patient does not have any significant acidosis or anion gap. Patient is discharged in stable condition after IV fluids, antiemetics and insulin. Undiagnosed new problem with uncertain prognosis? @ -No Drug Therapy requiring intensive monitoring for toxicity (Heparin, Nitro, Insulin, Cardizem)? @ -No Were any procedures done? @ -No Diagnosis/symptom? @ -Hyperglycemia nausea vomiting Acute, or Chronic, or Acute on Chronic? @ -Acute Uncomplicated (without systemic symptoms) or Complicated (systemic symptoms)? @ -complicated Side effects of treatment? @ -No Exacerbation, Progression, or Severe Exacerbation? @ -No Poses a threat to life or bodily function? How? (Chest pain, [place], [place], pneumonia, PE, COPD, DKA, ARF, appy, cholecystitis, CVA, Diverticulitis, Homicidal, Suicid al, threat to staff... and all critical care pts) @ -No - Lab Data Result diagrams: 01/23/23 13:44 01/23/23 13:44 Lab Results 01/23/23 01/23/23 01/23/23 Range/Units 13:05 13:44 13:44 WBC 7.7 (3.8-10.6) k/uL RBC 4.04 L (4.30-5.90) m/uL Hgb 11.9 L (13.0-17.5) gm/dL Hct 37.3 L (39.0-53.0) % MCV 92.5 (80.0-100.0) fL MCH 29.5 (25.0-35.0) pg MCHC 31.9 (31.0-37.0) g/dL RDW 14.6 (11.5-15.5) % Plt Count 361 (150-450) k/uL MPV 7.3 Neutrophils % 70 % Lymphocytes % 22 % Monocytes % 4 % Eosinophils % 2 % Basophils % 0 % Neutrophils # 5.4 (1.3-7.7) k/uL Lymphocytes # 1.7 (1.0-4.8) k/uL Monocytes # 0.3 (0-1.0) k/uL Eosinophils # 0.1 (0-0.7) k/uL Basophils # 0.0 (0-0.2) k/uL VBG pH (7.31-7.41) VBG pCO2 (37-51) mmHg VBG HCO3 (24-28) mmol/L Sodium (137-145) mmol/L Potassium (3.5-5.1) mmol/L Chloride (98-107) mmol/L Carbon Dioxide (22-30) mmol/L Anion Gap mmol/L BUN (9-20) mg/dL Creatinine (0.66-1.25) mg/dL Est GFR (CKD-EPI)AfAm (>60 ml/min/1.73 sqM) Est GFR (CKD-EPI)NonAf (>60 ml/min/1.73 sqM) Glucose (74-99) mg/dL POC Glucose (mg/dL) 553 H (70-110) mg/dL POC Glu Crib Tender ID Hedy Batres Plasma Lactic Acid Len (0.7-2.0) mmol/L Calcium (8.4-10.2) mg/dL Magnesium (1.6-2.3) mg/dL Total Bilirubin (0.2-1.3) mg/dL AST (17-59) U/L ALT (4-49) U/L Alkaline Phosphatase (38-126) U/L Total Protein (6.3-8.2) g/dL Albumin (3.5-5.0) g/dL Lipase (23-300) U/L Urine Color Colorless Urine Appearance Clear (Clear) Urine pH 8.0 (5.0-8.0) Ur Specific [place] 1.024 (1.001-1.035) Urine Protein Negative (Negative) Urine Glucose (UA) 4+ H (Negative) Urine Ketones Negative (Negative) Urine Blood Negative (Negative) Urine Nitrite Negative (Negative) Urine Bilirubin Negative (Negative) Urine Urobilinogen <2.0 (<2.0) mg/dL Ur Leukocyte Esterase Negative (Negative) Acetone, Qual (Negative) 01/23/23 01/23/23 01/23/23 Range/Units 13:44 13:44 13:44 WBC (3.8-10.6) k/uL RBC (4.30-5.90) m/uL Hgb (13.0-17.5) gm/dL Hct (39.0-53.0) % MCV (80.0-100.0) fL MCH (25.0-35.0) pg MCHC (31.0-37.0) g/dL RDW (11.5-15.5) % Plt Count (150-450) k/uL MPV Neutrophils % % Lymphocytes % % Monocytes % % Eosinophils % % Basophils % % Neutrophils # (1.3-7.7) k/uL Lymphocytes # (1.0-4.8) k/uL Monocytes # (0-1.0) k/uL Eosinophils # (0-0.7) k/uL Basophils # (0-0.2) k/uL VBG pH 7.42 H (7.31-7.41) VBG pCO2 47 (37-51) mmHg VBG HCO3 30 H (24-28) mmol/L Sodium 133 L (137-145) mmol/L Potassium 5.2 H (3.5-5.1) mmol/L Chloride 96 L (98-107) mmol/L Carbon Dioxide 28 (22-30) mmol/L Anion Gap 9 mmol/L BUN 20 (9-20) mg/dL Creatinine 0.65 L (0.66-1.25) mg/dL Est GFR (CKD-EPI)AfAm >90 (>60 ml/min/1.73 sqM) Est GFR (CKD-EPI)NonAf >90 (>60 ml/min/1.73 sqM) Glucose 515 H* (74-99) mg/dL POC Glucose (mg/dL) (70-110) mg/dL POC Glu Crib Tender ID Plasma Lactic Acid Len 1.4 (0.7-2.0) mmol/L Calcium 9.5 (8.4-10.2) mg/dL Magnesium 1.9 (1.6-2.3) mg/dL Total Bilirubin 0.5 (0.2-1.3) mg/dL AST 35 (17-59) U/L ALT 35 (4-49) U/L Alkaline Phosphatase 85 (38-126) U/L Total Protein 6.8 (6.3-8.2) g/dL Albumin 4.2 (3.5-5.0) g/dL Lipase 84 (23-300) U/L Urine Color Urine Appearance (Clear) Urine pH (5.0-8.0) Ur Specific [place] (1.001-1.035) Urine Protein (Negative) Urine Glucose (UA) (Negative) Urine Ketones (Negative) Urine Blood (Negative) Urine Nitrite (Negative) Urine Bilirubin (Negative) Urine Urobilinogen (<2.0) mg/dL Ur Leukocyte Esterase (Negative) Acetone, Qual Negative (Negative) 01/23/23 Range/Units 15:00 WBC (3.8-10.6) k/uL RBC (4.30-5.90) m/uL Hgb (13.0-17.5) gm/dL Hct (39.0-53.0) % MCV (80.0-100.0) fL MCH (25.0-35.0) pg MCHC (31.0-37.0) g/dL RDW (11.5-15.5) % Plt Count (150-450) k/uL MPV Neutrophils % % Lymphocytes % % Monocytes % % Eosinophils % % Basophils % % Neutrophils # (1.3-7.7) k/uL Lymphocytes # (1.0-4.8) k/uL Monocytes # (0-1.0) k/uL Eosinophils # (0-0.7) k/uL Basophils # (0-0.2) k/uL VBG pH (7.31-7.41) VBG pCO2 (37-51) mmHg VBG HCO3 (24-28) mmol/L Sodium (137-145) mmol/L Potassium (3.5-5.1) mmol/L Chloride (98-107) mmol/L Carbon Dioxide (22-30) mmol/L Anion Gap mmol/L BUN (9-20) mg/dL Creatinine (0.66-1.25) mg/dL Est GFR (CKD-EPI)AfAm (>60 ml/min/1.73 sqM) Est GFR (CKD-EPI)NonAf (>60 ml/min/1.73 sqM) Glucose (74-99) mg/dL POC Glucose (mg/dL) 397 H (70-110) mg/dL POC Glu Crib Tender ID Selena Fofana Plasma Lactic Acid Len (0.7-2.0) mmol/L Calcium (8.4-10.2) mg/dL Magnesium (1.6-2.3) mg/dL Total Bilirubin (0.2-1.3) mg/dL AST (17-59) U/L ALT (4-49) U/L Alkaline Phosphatase (38-126) U/L Total Protein (6.3-8.2) g/dL Albumin (3.5-5.0) g/dL Lipase (23-300) U/L Urine Color Urine Appearance (Clear) Urine pH (5.0-8.0) Ur Specific [place] (1.001-1.035) Urine Protein (Negative) Urine Glucose (UA) (Negative) Urine Ketones (Negative) Urine Blood (Negative) Urine Nitrite (Negative) Urine Bilirubin (Negative) Urine Urobilinogen (<2.0) mg/dL Ur Leukocyte Esterase (Negative) Acetone, Qual (Negative) - EKG Data -: EKG Interpreted by Me EKG Comments: EKG performed at 13:55 sinus rhythm with rate of 86 DC 173 QRS 93 QT/QTC 364/407 Disposition Clinical Impression: Hyperglycemia, Nausea & vomiting Disposition: HOME SELF-CARE Condition: Stable Instructions (If sedation given, give patient instructions): Acute Nausea and Vomiting (ED) Additional Instructions: Please return to the Emergency Department if symptoms worsen or any other concerns. Is patient prescribed a controlled substance at d/c from ED?: No Referrals: Brown Valenzuela MD [Primary Care Provider] - 1-2 days Time of Disposition: 15:42
[2023-01-23 13:25] VITALS: TEMP 97.6
[2023-01-23] MEDS ORDERED: INSULIN REGULAR BOLUS (FROM DRIP BAG) IV ONE (13:50)
[2023-01-23] MEDS ORDERED: INSULIN REGULAR 100 UNIT in SODIUM CHLORIDE 0.9% 100 ML IV SCH (14:00)
[2023-01-23] MEDS ORDERED: SODIUM CHLORIDE 0.9% 1,000 ML IV SCH (14:00)
[2023-01-23 14:03] LABS: Basophils % (A) 0 %; Eosinophils # (A) 0.1 k/uL (0-0.7); Eosinophils % (A) 2 %; HCT 37.3 % (39.0-53.0); HGB 11.9 gm/dL (13.0-17.5); Lymphocytes # (A) 1.7 k/uL (1.0-4.8); Lymphocytes % (A) 22 %; MCH 29.5 pg (25.0-35.0); MCHC 31.9 g/dL (31.0-37.0); MCV 92.5 fL (80.0-100.0); Mean Platelet Volume 7.3; Monocytes # (A) 0.3 k/uL (0-1.0); Monocytes % (A) 4 %; Neutrophils # (A) 5.4 k/uL (1.3-7.7); Neutrophils % (A) 70 %; Platelet Count 361 k/uL (150-450); RBC 4.04 m/uL (4.30-5.90); RDW 14.6 % (11.5-15.5); WBC 7.7 k/uL (3.8-10.6)
[2023-01-23 14:14] LABS: VBG PH 7.42 (7.31-7.41)
[2023-01-23 14:20] LABS: ALT 35 U/L (4-49); AST 35 U/L (17-59); African American GFR (CKD) >90 (>60 ml/min/1.73 sqM); Albumin 4.2 g/dL (3.5-5.0); Alkaline Phosphatase 85 U/L (38-126); Anion Gap 9 mmol/L; Blood Urea Nitrogen 20 mg/dL (9-20); Calcium 9.5 mg/dL (8.4-10.2); Carbon Dioxide 28 mmol/L (22-30); Chloride 96 mmol/L (98-107); Lipase 84 U/L (23-300); Magnesium 1.9 mg/dL (1.6-2.3); Non-African American GFR(CKD) >90 (>60 ml/min/1.73 sqM); Potassium 5.2 mmol/L (3.5-5.1); Sodium 133 mmol/L (137-145); Total Bilirubin 0.5 mg/dL (0.2-1.3); Total Protein 6.8 g/dL (6.3-8.2)
[2023-01-23 14:23] LABS: Glucose 515 mg/dL (74-99)
[2023-01-23] MEDS ORDERED: droPERidol 5 MG/2 ML VIAL IVP ONE (14:26)
[2023-01-23 14:31] LABS: Appearance,Urine Clear (Clear); Bilirubin,Urine Negative (Negative); Blood,Urine Negative (Negative); Color,Urine Colorless; Glucose,Urine (UA) 4+ (Negative); Ketones,Urine Negative (Negative); Leukocyte Esterase,Urine Negative (Negative); Nitrite,Urine Negative (Negative); Protein,Urine Negative (Negative); Specific Gravity,Urine 1.024 (1.001-1.035); Urobilinogen,Urine <2.0 mg/dL (<2.0)
[2023-01-23] MEDS ORDERED: SODIUM CHLORIDE 0.9% 1,000 ML IV ONE (14:32)
[2023-01-23 15:02] LABS: Glucose,Whole Blood 397 mg/dL (70-110)
[2023-01-23 15:40] LABS: Glucose,Whole Blood 287 mg/dL (70-110)
[2023-01-23 16:19] LABS: Glucose,Whole Blood 199 mg/dL (70-110)
[2023-01-23 16:26] VITALS: BP 92/60; PULSE 93; RESP 16
== END 2023-01-23 16:47 | disposition home or self-care (01) ==
LOC: EC 13:00
DX: R11.2 Nausea with vomiting, unspecified (principal); E11.65 Type 2 diabetes mellitus with hyperglycemia; J45.909 Unspecified asthma, uncomplicated; E11.9 Type 2 diabetes mellitus without complications; F41.9 Anxiety disorder, unspecified; F32.A Depression, unspecified; Z87.891 Personal history of nicotine dependence; Z79.4 Long term (current) use of insulin; Z79.899 Other long term (current) drug therapy
CPT/HCPCS: 36415; 93005; 80053; 82803; 82009; 83605; 83690; 83735; 85025; 81003; 99284; 96374; 96375 ×2; 96361 ×2; J1200; J2765; J1790

== ENCOUNTER 2023-01-28 01:10 | Inpatient (IN) | payer OTHER ==
[2023-01-28] MEDS ORDERED: SODIUM CHLORIDE 0.9% 1,000 ML IV STA ×2 (01:15→01:23)
[2023-01-28 01:16] LABS: Glucose,Whole Blood 475 mg/dL (70-110)
[2023-01-28] MEDS ORDERED: ONDANSETRON 4 MG/2 ML VIAL IVP STA (01:24)
[2023-01-28 01:30] LABS: Basophils # (A) 0.1 k/uL (0-0.2); Basophils % (A) 1 %; Eosinophils # (A) 0.1 k/uL (0-0.7); Eosinophils % (A) 1 %; HCT 43.2 % (39.0-53.0); HGB 13.8 gm/dL (13.0-17.5); Hypochromasia Slight; Lymphocytes # (A) 2.8 k/uL (1.0-4.8); Lymphocytes % (A) 22 %; MCH 30.2 pg (25.0-35.0); MCHC 32.1 g/dL (31.0-37.0); MCV 94.1 fL (80.0-100.0); Mean Platelet Volume 7.4; Monocytes # (A) 0.4 k/uL (0-1.0); Monocytes % (A) 3 %; Neutrophils # (A) 9.5 k/uL (1.3-7.7); Neutrophils % (A) 73 %; Platelet Count 471 k/uL (150-450); RBC 4.59 m/uL (4.30-5.90); RDW 14.6 % (11.5-15.5); WBC 13.1 k/uL (3.8-10.6)
[2023-01-28 01:34] LABS: VBG PH 7.29 (7.31-7.41)
[2023-01-28 01:39] LABS: ALT 29 U/L (4-49); AST 22 U/L (17-59); African American GFR (CKD) >90 (>60 ml/min/1.73 sqM); Albumin 4.9 g/dL (3.5-5.0); Alkaline Phosphatase 111 U/L (38-126); Blood Urea Nitrogen 26 mg/dL (9-20); Calcium 9.5 mg/dL (8.4-10.2); Chloride 95 mmol/L (98-107); Lipase 43 U/L (23-300); Non-African American GFR(CKD) 89 (>60 ml/min/1.73 sqM); Potassium 4.8 mmol/L (3.5-5.1); Sodium 134 mmol/L (137-145); Total Bilirubin 1.1 mg/dL (0.2-1.3); Total Protein 7.8 g/dL (6.3-8.2)
[2023-01-28 02:13] LABS: Carbon Dioxide <5 mmol/L (22-30); Glucose 515 mg/dL (74-99)
[2023-01-28] MEDS ORDERED: NALOXONE 0.4 MG/ML 1 ML VIAL IV PRN (02:15)
[2023-01-28] MEDS ORDERED: SODIUM CHLORIDE 0.9% 1,000 ML IV ONE (02:15)
[2023-01-28] MEDS ORDERED: DEXTROSE 50% SYRINGE 50 ML IVP PRN ×2 (02:15)
[2023-01-28] MEDS ORDERED: Potassium Replacement Protocol 1 EACH MISC MISCELLANE PRN (02:15)
[2023-01-28] MEDS ORDERED: Magnesium Replacement Protocol 1 EACH MISC MISCELLANE PRN (02:15)
[2023-01-28] MEDS ORDERED: METOCLOPRAMIDE 5 MG/ML 2 ML VIAL IVP STA (02:26)
[2023-01-28] MEDS: INSULIN REGULAR 100 UNIT in SODIUM CHLORIDE 0.9% 100 ML IV SCH ×2 (03:04→11:19)
--- NOTE | 2023-01-28 03:08 | ED ---
Nausea/Vomiting/Diarrhea HPI - General Source: EMS Mode of arrival: EMS <Antonella Reyes - Last Filed: 01/28/23 03:02> - History of Present Illness MD complaint: nausea, vomiting, abdominal pain -: days(s) Description of Vomiting: food contents Location: diffuse Radiation: none Severity: severe Severity scale (1-10): 10 Quality: constant Consistency: constant Improves with: none Worsens with: none Associated Symptoms: loss of appetite, nausea/vomiting, weakness <Julian Posadas - Last Filed: 01/28/23 22:31> - General Chief complaint: Nausea/Vomiting/Diarrhea Stated complaint: High blood sugar Time Seen by Provider: 01/28/23 01:14 - History of Present Illness Initial comments: Patient is a 27-year-old male who presents the emergency department for high blood sugar. Patient presents after several episodes of vomiting today. He has history of type 1 diabetes on insulin. He is well known in our emergency department for hyperglycemia and DKA. Denies fevers, recent illness (Antonella Reyes) 27 male in significant severe distress secondary to diabetic U acidosis, patient is altered mental to Tachycardic with persistent nausea vomiting abdominal pain (Julian Posadas) - Related Data Home Medications Medication Instructions Recorded Confirmed Gabapentin 600 mg PO TID PRN 10/14/22 01/28/23 Famotidine [Pepcid] 20 mg PO BID 12/31/22 01/28/23 INSULIN LISPRO (HumaLOG) [humaLOG] 7 units SQ AC-TID 12/31/22 01/28/23 Insulin Glargine [Lantus Vial] 30 unit SQ DAILY 12/31/22 01/28/23 Mirtazapine 7.5 mg PO HS 12/31/22 01/28/23 Previous Rx's Medication Instructions Recorded Losartan [Cozaar] 25 mg PO DAILY #10 tab 01/06/23 Allergies Allergy/AdvReac Type Severity Reaction Status Date / Time No Known Allergies Allergy Verified 01/23/23 13:58 Review of Systems ROS Other: All systems not noted in ROS Statement are negative. <Antonella Reyes - Last Filed: 01/28/23 03:02> ROS Other: All systems not noted in ROS Statement are negative. <Julian Posadas - Last Filed: 01/28/23 22:31> ROS Statement: Those systems with pertinent positive or pertinent negative responses have been documented in the HPI. Past Medical History Past Medical History: Asthma, Diabetes Mellitus, Neurologic Disorder, Skin Disorder Additional Past Medical History / Comment(s): IDDM type I, neuropathy bilateral feet, DKA, eczema. History of Any Multi-Drug Resistant Organisms: None Reported Past Surgical History: Adenoidectomy Additional Past Surgical History / Comment(s): 2003 Recent EGD- gastritis Past Anesthesia/Blood Transfusion Reactions: No Reported Reaction Past Psychological History: Anxiety, Depression Smoking Status: Former smoker Past Alcohol Use History: None Reported Past Drug Use History: None Reported - Past Family History Mother Family Medical History: CVA/TIA Additional Family Medical History / Comment(s): TIA Father Family Medical History: Hyperlipidemia, Hypertension Additional Family Medical History / Comment(s): . <Antonella Reyes - Last Filed: 01/28/23 03:02> General Exam General appearance: in no apparent distress (Vomiting Kussmaul breathing) Respiratory exam: Present: normal lung sounds bilaterally. Absent: respiratory distress, wheezes, rales, rhonchi, stridor Cardiovascular Exam: Present: regular rate, normal rhythm, normal heart sounds. Absent: systolic murmur, diastolic murmur, rubs, gallop, clicks GI/Abdominal exam: Present: soft, normal bowel sounds. Absent: distended, tenderness, guarding, rebound, rigid Neurological exam: Present: alert Skin exam: Present: warm, intact, normal color, diaphoretic. Absent: dry, rash <Antonella Reyes - Last Filed: 01/28/23 03:02> General appearance: alert, anxious, in distress Head exam: Present: atraumatic, normocephalic, normal inspection Eye exam: Present: normal appearance, PERRL, EOMI. Absent: scleral icterus, conjunctival injection, periorbital swelling ENT exam: Present: normal exam, mucous membranes moist Neck exam: Present: normal inspection. Absent: tenderness, meningismus, lym phadenopathy Respiratory exam: Present: normal lung sounds bilaterally. Absent: respiratory distress, wheezes, rales, rhonchi, stridor Cardiovascular Exam: Present: regular rate, normal rhythm, normal heart sounds. Absent: systolic murmur, diastolic murmur, rubs, gallop, clicks GI/Abdominal exam: Present: soft, normal bowel sounds. Absent: distended, tenderness, guarding, rebound, rigid Extremities exam: Present: normal inspection, full ROM, normal capillary refill. Absent: tenderness, pedal edema, joint swelling, calf tenderness Back exam: Present: normal inspection Neurological exam: Present: alert, oriented X3, CN II-XII intact Psychiatric exam: Present: normal affect, normal mood Skin exam: Present: warm, dry, intact, normal color. Absent: rash <Julian Posadas - Last Filed: 01/28/23 22:31> Course <Julian Posadas - Last Filed: 01/28/23 22:31> Vital Signs 01/28/23 01/28/23 01/28/23 01:13 03:13 03:20 Temperature 96.3 F L Pulse Rate 127 H 120 H Respiratory 18 58 H 32 H Rate Blood Pressure 116/78 113/96 O2 Sat by Pulse 100 98 Oximetry 01/28/23 03:22 Temperature Pulse Rate 122 H Respiratory 22 Rate Blood Pressure O2 Sat by Pulse 100 Oximetry - Reevaluation(s) Reevaluation #1: Record is reviewed (Julian Posadas) Reevaluation #2: Patient mildly improving (Julian Posadas) - Consultations Consultation #1: Admitting physicians who agree to admit this patient (Julian Posadas) Consultation #2: Spoke with ICU who accepted patient for ICU admission (Julian Posadas) Medical Decision Making - Lab Data Result diagrams: 01/28/23 01:23 01/28/23 01:23 <Antonella Reyes - Last Filed: 01/28/23 03:02> - Lab Data Result diagrams: 01/28/23 01:23 01/28/23 20:50 <Julian Posadas - Last Filed: 01/28/23 22:31> - Medical Decision Making EKG taken at 01:16, interpreted by myself Sinus tachycardia Ventricular rate 126, SD interval 176, QRS duration 94, QTC 402 Was pt. sent in by a medical professional or institution (, PA, [facility]URNER, urgent care, hospital, or half-way...) When possible be specific @ -[No] Did you speak to anyone other than the patient for history (EMS, parent, family, police, friend...)? What history was obtained from this source @ -[No] Did you review nursing and triage notes (agree or disagree)? Why? @ -[I reviewed and agree with nursing and triage notes] Were old charts reviewed (outside hosp., previous admission, EMS record, old EKG, old radiological studies, urgent care reports/EKG's, half-way records)? Report findings @ -[No old charts were reviewed] Differential Diagnosis (chest pain, altered mental status, abdominal pain women, abdominal pain men, vaginal bleeding, weakness, fever, dyspnea, syncope, headache, dizziness, GI bleed, back pain, seizure, CVA, palpatations, mental health)? @ Hyperglycemia, DKA EKG interpreted by me (3pts min.). @ -[As above] X-rays interpreted by me (1pt min.). @ -[None done] CT interpreted by me (1pt min.). @ -[None done] U/S interpreted by me (1pt. min.). @ -[None done] What testing was considered but not performed or refused? (CT, X-rays, U/S, labs)? Why? @ -[None] What meds were considered but not given or refused? Why? @ -[None] Did you discuss the management of the patient with other professionals (professionals i.e. , PA, [facility] BURNER, lab, RT, psych nurse, oncology social worker, peripatologist, teacher, contracts officer, outpatient case manager)? Give summary @ -[No] Was smoking cessation discussed for >3mins.? @ -[No] Was critical care preformed (if so, how long)? @ -[No] Were there social determinants of health that impacted care today? How? (Homelessness, low income, unemployed, alcoholism, drug addiction, transportation, low edu. Level, literacy, decrease access to med. care, longterm, rehab)? @ -[No] Was there de-escalation of care discussed even if they declined (Discuss DNR or withdrawal of care, Hospice)? DNR status @ -[No] What co-morbidities impacted this encounter? (DM, HTN, Smoking, COPD, CAD, Cancer, CVA, ARF, Chemo, Hep., AIDS, mental health diagnosis, sleep apnea, morbid obesity)? @ -Type 1 diabetes Was patient admitted / discharged? Hospital course, mention meds given and route, prescriptions, significant lab abnormalities, going to OR and other pertinent info. @ -Admit to the ICU for DKA. Patient given generous IV fluids and insulin Undiagnosed new problem with uncertain prognosis? @ -[No] Drug Therapy requiring intensive monitoring for toxicity (Heparin, Nitro, I nsulin, Cardizem)? @ -[No] Were any procedures done? @ -[No] Diagnosis/symptom? @ -[DKA Acute, or Chronic, or Acute on Chronic? @ -Acute Uncomplicated (without systemic symptoms) or Complicated (systemic symptoms)? @ -Complicated Side effects of treatment? @ -[No] Exacerbation, Progression, or Severe Exacerbation? @ -[No] Poses a threat to life or bodily function? How? (Chest pain, [place], [place], pneumonia, PE, COPD, DKA, ARF, appy, cholecystitis, CVA, Diverticulitis, Homicidal, Suicidal, threat to staff... and all critical care pts) @ -Yes Dr. Posadas is my attending (Antonella Reyes) 27 male to the emergency room today. He isn't significant DKA. Patient will be admitted to the ICU for supportive care and treatment. (Julian Posadas) - Lab Data Lab Results 01/28/23 01/28/23 01/28/23 Range/Units 01:15 01:15 01:23 WBC 13.1 H (3.8-10.6) k/uL RBC 4.59 (4.30-5.90) m/uL Hgb 13.8 (13.0-17.5) gm/dL Hct 43.2 (39.0-53.0) % MCV 94.1 (80.0-100.0) fL MCH 30.2 (25.0-35.0) pg MCHC 32.1 (31.0-37.0) g/dL RDW 14.6 (11.5-15.5) % Plt Count 471 H (150-450) k/uL MPV 7.4 Neutrophils % 73 % Lymphocytes % 22 % Monocytes % 3 % Eosinophils % 1 % Basophils % 1 % Neutrophils # 9.5 H (1.3-7.7) k/uL Lymphocytes # 2.8 (1.0-4.8) k/uL Monocytes # 0.4 (0-1.0) k/uL Eosinophils # 0.1 (0-0.7) k/uL Basophils # 0.1 (0-0.2) k/uL Hypochromasia Slight VBG pH 7.29 L (7.31-7.41) VBG pCO2 11 L* (37-51) mmHg VBG HCO3 5 L* (24-28) mmol/L Sodium (137-145) mmol/L Potassium (3.5-5.1) mmol/L Chloride (98-107) mmol/L Carbon Dioxide (22-30) mmol/L Anion Gap mmol/L BUN (9-20) mg/dL Creatinine (0.66-1.25) mg/dL Est GFR (CKD-EPI)AfAm (>60 ml/min/1.73 sqM) Est GFR (CKD-EPI)NonAf (>60 ml/min/1.73 sqM) Glucose (74-99) mg/dL POC Glucose (mg/dL) 475 H (70-110) mg/dL POC Glu Regeneration Operator ID Eliezer Reinoso Calcium (8.4-10.2) mg/dL Total Bilirubin (0.2-1.3) mg/dL AST (17-59) U/L ALT (4-49) U/L Alkaline Phosphatase (38-126) U/L Total Protein (6.3-8.2) g/dL Albumin (3.5-5.0) g/dL Lipase (23-300) U/L Acetone, Qual (Negative) 01/28/23 Range/Units 01:23 WBC (3.8-10.6) k/uL RBC (4.30-5.90) m/uL Hgb (13.0-17.5) gm/dL Hct (39.0-53.0) % MCV (80.0-100.0) fL MCH (25.0-35.0) pg MCHC (31.0-37.0) g/dL RDW (11.5-15.5) % Plt Count (150-450) k/uL MPV Neutrophils % % Lymphocytes % % Monocytes % % Eosinophils % % Basophils % % Neutrophils # (1.3-7.7) k/uL Lymphocytes # (1.0-4.8) k/uL Monocytes # (0-1.0) k/uL Eosinophils # (0-0.7) k/uL Basophils # (0-0.2) k/uL Hypochromasia VBG pH (7.31-7.41) VBG pCO2 (37-51) mmHg VBG HCO3 (24-28) mmol/L Sodium 134 L (137-145) mmol/L Potassium 4.8 (3.5-5.1) mmol/L Chloride 95 L (98-107) mmol/L Carbon Dioxide <5 L* (22-30) mmol/L Anion Gap mmol/L BUN 26 H (9-20) mg/dL Creatinine 1.14 (0.66-1.25) mg/dL Est GFR (CKD-EPI)AfAm >90 (>60 ml/min/1.73 sqM) Est GFR (CKD-EPI)NonAf 89 (>60 ml/min/1.73 sqM) Glucose 515 H* (74-99) mg/dL POC Glucose (mg/dL) (70-110) mg/dL POC Glu Regeneration Operator ID Calcium 9.5 (8.4-10.2) mg/dL Total Bilirubin 1.1 (0.2-1.3) mg/dL AST 22 (17-59) U/L ALT 29 (4-49) U/L Alkaline Phosphatase 111 (38-126) U/L Total Protein 7.8 (6.3-8.2) g/dL Albumin 4.9 (3.5-5.0) g/dL Lipase 43 (23-300) U/L Acetone, Qual Positive (Negative) Critical Care Time Critical Care Time: Yes Total Critical Care Time: 31 <Julian Posadas - Last Filed: 01/28/23 22:31> Disposition <Antonella Reyes - Last Filed: 01/28/23 03:02> Is patient prescribed a controlled substance at d/c from ED?: No Time of Disposition: 02:00 <Julian Posadas - Last Filed: 01/28/23 22:31> Clinical Impression: DKA (diabetic ketoacidosis), Abdominal pain, Metabolic acidosis, IDDM (insulin dependent diabetes mellitus), Tachycardia, Altered mental status, Nausea & vomiting Disposition: ADMITTED IP TO THIS HOSP Condition: Critical
[2023-01-28 03:16] LABS: Glucose,Whole Blood 470 mg/dL (70-110)
[2023-01-28 03:21] LABS: Appearance,Urine Clear (Clear); Bilirubin,Urine Negative (Negative); Blood,Urine Negative (Negative); Color,Urine Colorless; Glucose,Urine (UA) 4+ (Negative); Leukocyte Esterase,Urine Negative (Negative); Nitrite,Urine Negative (Negative); Protein,Urine Negative (Negative); Urobilinogen,Urine <2.0 mg/dL (<2.0)
[2023-01-28] MEDS: SODIUM CHLORIDE 0.9% 1,000 ML IV SCH ×4 (03:27→14:14)
--- NOTE | 2023-01-28 03:51 | P.CNPUL ---
History of Present Illness Consult date: 01/28/23 Requesting physician: Julian Posadas Reason for consult: other (ICU management) Chief complaint: Nausea and vomiting History of present illness: I am seeing this patient in consultation today 01/28/2023 for acute diabetic ketoacidosis. This is a 27-year-old white male with past medical history significant for type 1 diabetes mellitus and medication noncompliance. Patient has had numerous hospital admissions for diabetic ketoacidosis, and was recently discharged from the hospital on January 06. He's had multiple psychiatric evaluations for his ongoing severe depression and self harming behavior. Patient was brought in by EMS with complaints of nausea and vomiting. Denies any ab dominal pain, diarrhea, constipation, hematemesis. Denies any infectious symptoms. He was found to be in DKA. Serum bicarb was less than 5, anion gap unmeasurable, glucose 515, and he was acetone positive. Patient has been started on the DKA protocol. Insulin is currently infusing at 7 units per hour. He received 2 L normal saline bolus in the emergency room. Normal saline is currently infusing at 200 ml per hour. CBC on arrival showed WBC count of 13.1, hemoglobin 13.8, hematocrit 43.2, platelets 171. BMP on arrival shows sodium 134, potassium 4.8, chloride 95, serum bicarb less than 5, BUN 26, creatinine 1.14, glucose 515. VBG was consistent with non-anion gap metabolic acidosis. Kussmaul respirations present. He is tachycardic but normotensive. On room air. Answers questions properly. He will be monitored in the intensive care unit until his DKA resolved. Review of Systems REVIEW OF SYSTEMS: CONSTITUTIONAL: Denies any recent significant weight loss or weight gain. EYES: Denies change in vision. EARS, NOSE, MOUTH, THROAT: Denies headaches, denies sore throat. CARDIOVASCULAR: Denies chest pain, palpitations or syncopal episodes. RESPIRATORY: Denies shortness of breath, cough, congestion or hemoptysis. GASTROINTESTINAL: Denies change in appetite, abdominal pain, or diarrhea. Admits nausea and vomiting GENITOURINARY: Denies hematuria, denies infections. MUSKULOSKELETAL: Denies pain, denies swelling. INTEGUMENTARY: Denies rash, denies eczema. NEUROLOGICAL: Denies recent memory loss, no recent seizure activity. PSYCHIATRIC: Denies anxiety, denies depression. HEMATOLOGIC/LYMPHATIC: Denies anemia, denies enlarged lymph node Past Medical History Past Medical History: Asthma, Diabetes Mellitus, Neurologic Disorder, Skin Disorder Additional Past Medical History / Comment(s): IDDM type I, neuropathy bilateral feet, DKA, eczema. History of Any Multi-Drug Resistant Organisms: None Reported Past Surgical History: Adenoidectomy Additional Past Surgical History / Comment(s): 2002 Recent EGD- gastritis Past Anesthesia/Blood Transfusion Reactions: No Reported Reaction Past Psychological History: Anxiety, Depression Smoking Status: Former smoker Past Alcohol Use History: None Reported Past Drug Use History: None Reported - Past Family History Mother Family Medical History: CVA/TIA Additional Family Medical History / Comment(s): TIA Father Family Medical History: Hyperlipidemia, Hypertension Additional Family Medical History / Comment(s): . Medications and Allergies Home Medications Medication Instructions Recorded Confirmed Type Gabapentin 600 mg PO TID PRN 10/14/22 01/23/23 History Famotidine [Pepcid] 20 mg PO BID 12/31/22 01/23/23 History INSULIN LISPRO (HumaLOG) [humaLOG] 7 units SQ AC-TID 12/31/22 01/23/23 History Insulin Glargine [Lantus Vial] 30 unit SQ DAILY 12/31/22 01/23/23 History Mirtazapine 7.5 mg PO HS 12/31/22 01/23/23 History Losartan [Cozaar] 25 mg PO DAILY #10 tab 01/06/23 01/23/23 Rx Allergies Allergy/AdvReac Type Severity Reaction Status Date / Time No Known Allergies Allergy Verified 01/23/23 13:58 Physical Exam Vitals: Vital Signs Temp Pulse Resp BP Pulse Ox 01/28/23 03:30 121 H 25 H 113/96 97 01/28/23 03:22 122 H 22 100 01/28/23 03:20 96.3 F L 120 H 32 H 113/96 98 01/28/23 03:13 58 H 01/28/23 01:13 127 H 18 116/78 100 Intake and Output 01/27/23 01/27/23 01/28/23 14:59 22:59 06:59 Other: Weight 74.843 kg GENERAL EXAM: Alert, 27-year-old white male , with a disheveled appearance. HEAD: Normocephalic and atraumatic EYES: Normal reaction of pupils, equal size. NOSE: Clear with pink turbinates. THROAT: No erythema or exudates. NECK: No masses, no JVD. CHEST: No chest wall deformity. LUNGS: Equal air entry with no crackles, wheeze, rhonchi or dullness. On room air. Kussmaul respirations present. CVS: S1 and S2 normal with no audible murmur, regular rhythm. No extra heart sounds. Tachycardic with a heart rate of 120 bpm. ABDOMEN: No hepatosplenomegaly, active bowel sounds, no guarding or rigidity. SPINE: No scoliosis or deformity SKIN: No rashes CENTRAL NERVOUS SYSTEM: No focal deficits, tone is normal in all 4 extremities. EXTREMITIES: There is no peripheral edema, clubbing, or cyanosis. Peripheral pulses are intact. Results - Laboratory Findings CBC and BMP: 01/28/23 01:23 01/28/23 01:23 Abnormal lab findings: Abnormal Labs 01/28/23 01/28/23 01/28/23 01:15 01:15 01:23 WBC 13.1 H Plt Count 471 H Neutrophils # 9.5 H VBG pH 7.29 L VBG pCO2 11 L* VBG HCO3 5 L* Sodium Chloride Carbon Dioxide BUN Glucose POC Glucose (mg/dL) 475 H 01/28/23 01/28/23 01:23 03:13 WBC Plt Count Neutrophils # VBG pH VBG pCO2 VBG HCO3 Sodium 134 L Chloride 95 L Carbon Dioxide <5 L* BUN 26 H Glucose 515 H* POC Glucose (mg/dL) 470 H Assessment and Plan Assessment: Acute diabetic ketoacidosis, secondary to medication noncompliance. Patient has had numerous episodes of DKA, and he was recently discharged on January 06 Severe anion gap metabolic acidosis, secondary to above Dehydration Type 1 diabetes mellitus, with poor compliance. Acute leukocytosis, likely reactive to DKA Diabetic neuropathy History of major depression Chronic marijuana use Chronic ongoing nicotine dependence Plan: Patient's medications and labs reviewed Continue DKA protocol Insulin infusion per protocol Fluid resuscitated with 2 L normal saline bolus in the emergency room, and has normal saline infusing at 200 ML's per hour Continue electrolytes every 4 hours Patient will be monitored in the intensive care unit until his DKA resolves. I have personally seen and examined the patient, performed the documentation and the assessment and plan as written. Number of minutes spent on the visit:20 Time with Patient: Greater than 30
[2023-01-28 04:05] LABS: Ketones,Urine 4+ (Negative)
[2023-01-28 04:14] LABS: Glucose,Whole Blood 391 mg/dL (70-110)
[2023-01-28 05:04] LABS: Glucose,Whole Blood 340 mg/dL (70-110)
[2023-01-28 05:35] LABS: African American GFR (CKD) >90 (>60 ml/min/1.73 sqM); Blood Urea Nitrogen 25 mg/dL (9-20); Chloride 103 mmol/L (98-107); Glucose 372 mg/dL (74-99); Non-African American GFR(CKD) >90 (>60 ml/min/1.73 sqM); Phosphorus 4.8 mg/dL (2.5-4.5); Potassium 4.6 mmol/L (3.5-5.1); Sodium 139 mmol/L (137-145)
[2023-01-28 05:39] LABS: Carbon Dioxide <5 mmol/L (22-30)
[2023-01-28 06:38] LABS: Glucose,Whole Blood 231 mg/dL (70-110)
[2023-01-28 07:10] LABS: Glucose,Whole Blood 224 mg/dL (70-110)
[2023-01-28 08:01] LABS: Glucose,Whole Blood 194 mg/dL (70-110)
[2023-01-28] MEDS: D5-0.45% NACL WITH KCL 20MEQ/L 1,000 ML IV SCH ×3 (08:13→21:26)
[2023-01-28] MEDS: PANTOPRAZOLE 40 MG/10 ML VIAL IV SCH (08:13)
[2023-01-28] MEDS: ONDANSETRON 4 MG/2 ML VIAL IVP PRN ×2 (08:20→16:20)
[2023-01-28 09:18] LABS: African American GFR (CKD) >90 (>60 ml/min/1.73 sqM); Anion Gap 18 mmol/L; Blood Urea Nitrogen 23 mg/dL (9-20); Carbon Dioxide 12 mmol/L (22-30); Chloride 110 mmol/L (98-107); Glucose 186 mg/dL (74-99); Non-African American GFR(CKD) >90 (>60 ml/min/1.73 sqM); Potassium 4.2 mmol/L (3.5-5.1); Sodium 140 mmol/L (137-145)
[2023-01-28] MEDS ORDERED: Phosphorus Replacement Protoco 1 EACH MISC MISCELLANE PRN (09:27)
[2023-01-28] MEDS ORDERED: SODIUM PHOSPHATE 15 MMOL in DEXTROSE 5% IN WATER 250 ML IVPB ONE ×2 (09:27)
[2023-01-28] MEDS ORDERED: GABAPENTIN 300 MG CAP PO PRN (09:31)
[2023-01-28 10:00] LABS: Glucose,Whole Blood 183 mg/dL (70-110)
[2023-01-28 11:07] LABS: Glucose,Whole Blood 173 mg/dL (70-110)
[2023-01-28 12:08] LABS: Glucose,Whole Blood 164 mg/dL (70-110)
[2023-01-28 13:02] LABS: Glucose,Whole Blood 162 mg/dL (70-110)
[2023-01-28 13:57] LABS: African American GFR (CKD) >90 (>60 ml/min/1.73 sqM); Anion Gap 14 mmol/L; Blood Urea Nitrogen 22 mg/dL (9-20); Carbon Dioxide 15 mmol/L (22-30); Chloride 107 mmol/L (98-107); Glucose 154 mg/dL (74-99); Non-African American GFR(CKD) >90 (>60 ml/min/1.73 sqM); Phosphorus 2.5 mg/dL (2.5-4.5); Potassium 4.3 mmol/L (3.5-5.1); Sodium 136 mmol/L (137-145)
[2023-01-28 14:06] LABS: Glucose,Whole Blood 147 mg/dL (70-110)
--- NOTE | 2023-01-28 14:47 | P.HPIM ---
History of Present Illness H&P Date: 01/28/23 History of present illness; patient is 27-year-old gentleman past medical histor y significant for severe depression, insulin-dependent diabetes mellitus presented to the ER because of nausea and vomiting. Patient has been admitted multiple times in the in the past with similar complaints and found to be in DKA. Patient is noncompliant. Patient last admission was in December of this year with similar presentation. Patient stated he was all right 2 days ago and started having nausea and vomiting. Patient was also having decreased appetite. Denies any abdominal pain. No complaint of fever or chills at home. Denies any lightheadedness or dizziness. Because of these symptoms, patient was brought to the ER Initial lab work done in the ER showed WBC 13.1, hemoglobin 13.8, platelet count 471, sodium 134, potassium 4.8, bicarb less than 5, G1 26, creatinine 1.14, glucose 115 UA positive for ketones and +4 glucose Patient was found to be in DKA, started on insulin drip and was admitted to ICU REVIEW OF SYSTEMS: CONSTITUTIONAL: As mentioned in HPI HEENT: No recent visual problems or hearing problems. Denied any sore throat. CARDIOVASCULAR: No chest pain, orthopnea, PND, no palpitations, no syncope. PULMONARY: No shortness of breath, no cough, no hemoptysis. GASTROINTESTINAL: As mentioned in HPI NEUROLOGICAL: No headaches, no weakness, no numbness. HEMATOLOGICAL: Denies any bleeding or petechiae. GENITOURINARY: Denies any burning micturition, frequency, or urgency. MUSCULOSKELETAL/RHEUMATOLOGICAL: Denies any joint pain, swelling, or any muscle pain. ENDOCRINE: Denies any polyuria or polydipsia. The rest of the 14-point review of systems is negative. PHYSICAL EXAMINATION: GENERAL: The patient is alert and oriented x3, not in any acute distress. Well developed, well nourished. HEENT: Pupils are round and equally reacting to light. EOMI. No scleral icterus. No conjunctival pallor. Normocephalic, atraumatic. No pharyngeal erythema. No th yromegaly. CARDIOVASCULAR: S1 and S2 present. No murmurs, rubs, or gallops. PULMONARY: Chest is clear to auscultation, no wheezing or crackles. ABDOMEN: Soft, nontender, nondistended, normoactive bowel sounds. No palpable organomegaly. MUSCULOSKELETAL: No joint swelling or deformity. EXTREMITIES: No cyanosis, clubbing, or pedal edema. NEUROLOGICAL: Gross neurological examination did not reveal any focal deficits. SKIN: No rashes. Assessment and plan DKA Insulin-dependent diabetes mellitus Medical noncompliance Nausea and vomiting Depression Diabetic neuropathy History of major depression Chronic marijuana use Chronic ongoing nicotine dependence Monitor vital signs Monitor CBC Monitor CMP Continue telemetry monitoring Continue glucose monitoring per DKA protocol Continue insulin drip Continue IV fluids Resume home meds Critical care following Labs and medication were reviewed.. Continue same treatment. Continue with symptomatic treatment. Resume home medication. Monitor labs and vitals. DVT and GI prophylaxis. Further recommendations as per clinical course of the patient Dictation was produced using [employer] dictation software. please excuse any grammatical, word or spelling errors. Past Medical History Past Medical History: Asthma, Diabetes Mellitus, Neurologic Disorder, Skin Di sorder Additional Past Medical History / Comment(s): IDDM type I, neuropathy bilateral feet, DKA, eczema. History of Any Multi-Drug Resistant Organisms: None Reported Past Surgical History: Adenoidectomy Additional Past Surgical History / Comment(s): 2002 Recent EGD- gastritis Past Anesthesia/Blood Transfusion Reactions: No Reported Reaction Past Psychological History: Anxiety, Depression Smoking Status: Former smoker Past Alcohol Use History: None Reported Past Drug Use History: None Reported - Past Family History Mother Family Medical History: CVA/TIA Additional Family Medical History / Comment(s): TIA Father Family Medical History: Hyperlipidemia, Hypertension Additional Family Medical History / Comment(s): . Medications and Allergies Home Medications Medication Instructions Recorded Confirmed Type Gabapentin 600 mg PO TID PRN 10/14/22 01/28/23 History Famotidine [Pepcid] 20 mg PO BID 12/31/22 01/28/23 History INSULIN LISPRO (HumaLOG) [humaLOG] 7 units SQ AC-TID 12/31/22 01/28/23 History Insulin Glargine [Lantus Vial] 30 unit SQ DAILY 12/31/22 01/28/23 History Mirtazapine 7.5 mg PO HS 12/31/22 01/28/23 History Losartan [Cozaar] 25 mg PO DAILY #10 tab 01/06/23 01/28/23 Rx Allergies Allergy/AdvReac Type Severity Reaction Status Date / Time No Known Allergies Allergy Verified 01/23/23 13:58 Physical Exam Vitals: Vital Signs Temp Pulse Pulse Resp BP Pulse Ox 01/28/23 08:50 133 H 21 130/96 98 01/28/23 08:40 123 H 31 H 130/96 98 01/28/23 08:30 97.6 F 105 H 13 130/96 96 01/28/23 08:20 126 H 25 H 113/96 97 01/28/23 08:10 110 H 4 L 113/96 97 01/28/23 08:00 121 H 122 H 20 113/96 97 01/28/23 07:50 135 H 34 H 113/96 97 01/28/23 07:40 115 H 22 113/96 97 01/28/23 07:30 129 H 24 113/96 97 01/28/23 07:20 120 H 22 113/96 96 01/28/23 07:10 128 H 24 113/96 97 01/28/23 07:00 129 H 19 113/96 96 01/28/23 06:50 121 H 18 113/96 94 L 01/28/23 06:40 115 H 9 L 113/96 98 01/28/23 06:30 134 H 23 113/96 99 01/28/23 06:20 113 H 18 113/96 97 01/28/23 06:10 122 H 17 113/96 98 01/28/23 06:00 113 H 8 L 113/96 97 01/28/23 05:50 128 H 23 113/96 99 01/28/23 05:40 112 H 6 L 113/96 97 01/28/23 05:30 125 H 24 113/96 98 01/28/23 05:20 116 H 16 113/96 98 01/28/23 05:10 120 H 20 113/96 99 01/28/23 05:00 122 H 20 113/96 97 01/28/23 04:50 128 H 31 H 113/96 98 01/28/23 04:40 122 H 22 113/96 98 01/28/23 04:30 126 H 20 113/96 99 01/28/23 04:20 123 H 11 L 113/96 99 01/28/23 04:10 122 H 13 113/96 99 01/28/23 04:00 97.2 F L 133 H 11 L 113/96 97 09/05/23 03:50 126 H 8 L 113/96 97 01/28/23 03:40 128 H 26 H 113/96 98 01/28/23 03:30 121 H 25 H 113/96 97 01/28/23 03:22 122 H 22 100 01/28/23 03:20 96.3 F L 120 H 32 H 113/96 98 01/28/23 03:13 58 H 01/28/23 01:13 127 H 18 116/78 100 Intake and Output 01/27/23 01/28/23 01/28/23 22:59 06:59 14:59 Intake Total 600 350 Output Total 850 200 Balance -250 150 Intake: IV 600 350 Sodium Chloride 0.9% 1, 600 350 000 ml @ 200 mls/hr IV . Q5H [facility] Rx#:[id number] Output: Urine 850 200 Other: Voiding Method Urinal Weight 74.843 kg Results CBC & Chem 7: 01/28/23 01:23 01/28/23 08:53 Labs: Abnormal Lab Results - Last 24 Hours (Table) 01/28/23 01/28/23 01/28/23 Range/Units 01:15 01:15 01:23 WBC 13.1 H (3.8-10.6) k/uL Plt Count 471 H (150-450) k/uL Neutrophils # 9.5 H (1.3-7.7) k/uL VBG pH 7.29 L (7.31-7.41) VBG pCO2 11 L* (37-51) mmHg VBG HCO3 5 L* (24-28) mmol/L Sodium (137-145) mmol/L Chloride (98-107) mmol/L Carbon Dioxide (22-30) mmol/L BUN (9-20) mg/dL Glucose (74-99) mg/dL POC Glucose (mg/dL) 475 H (70-110) mg/dL Phosphorus (2.5-4.5) mg/dL Urine Glucose (UA) (Negative) Urine Ketones (Negative) 01/28/23 01/28/23 01/28/23 Range/Units 01:23 02:57 03:13 WBC (3.8-10.6) k/uL Plt Count (150-450) k/uL Neutrophils # (1.3-7.7) k/uL VBG pH (7.31-7.41) VBG pCO2 (37-51) mmHg VBG HCO3 (24-28) mmol/L Sodium 134 L (137-145) mmol/L Chloride 95 L (98-107) mmol/L Carbon Dioxide <5 L* (22-30) mmol/L BUN 26 H (9-20) mg/dL Glucose 515 H* (74-99) mg/dL POC Glucose (mg/dL) 470 H (70-110) mg/dL Phosphorus (2.5-4.5) mg/dL Urine Glucose (UA) 4+ H (Negative) Urine Ketones 4+ H (Negative) 01/28/23 01/28/23 01/28/23 Range/Units 04:11 04:28 05:02 WBC (3.8-10.6) k/uL Plt Count (150-450) k/uL Neutrophils # (1.3-7.7) k/uL VBG pH (7.31-7.41) VBG pCO2 (37-51) mmHg VBG HCO3 (24-28) mmol/L Sodium (137-145) mmol/L Chloride (98-107) mmol/L Carbon Dioxide <5 L* (22-30) mmol/L BUN 25 H (9-20) mg/dL Glucose 372 H (74-99) mg/dL POC Glucose (mg/dL) 391 H 340 H (70-110) mg/dL Phosphorus 4.8 H (2.5-4.5) mg/dL Urine Glucose (UA) (Negative) Urine Ketones (Negative) 01/28/23 01/28/23 01/28/23 Range/Units 06:37 07:09 08:00 WBC (3.8-10.6) k/uL Plt Count (150-450) k/uL Neutrophils # (1.3-7.7) k/uL VBG pH (7.31-7.41) VBG pCO2 (37-51) mmHg VBG HCO3 (24-28) mmol/L Sodium (137-145) mmol/L Chloride (98-107) mmol/L Carbon Dioxide (22-30) mmol/L BUN (9-20) mg/dL Glucose (74-99) mg/dL POC Glucose (mg/dL) 231 H 224 H 194 H (70-110) mg/dL Phosphorus (2.5-4.5) mg/dL Urine Glucose (UA) (Negative) Urine Ketones (Negative) 01/28/23 01/28/23 Range/Units 08:53 08:53 WBC (3.8-10.6) k/uL Plt Count (150-450) k/uL Neutrophils # (1.3-7.7) k/uL VBG pH (7.31-7.41) VBG pCO2 (37-51) mmHg VBG HCO3 (24-28) mmol/L Sodium (137-145) mmol/L Chloride 110 H (98-107) mmol/L Carbon Dioxide 12 L (22-30) mmol/L BUN 23 H (9-20) mg/dL Glucose 186 H (74-99) mg/dL POC Glucose (mg/dL) (70-110) mg/dL Phosphorus 2.2 L (2.5-4.5) mg/dL Urine Glucose (UA) (Negative) Urine Ketones (Negative) Thrombosis Risk Factor Assmnt - Choose All That Apply Any of the Below Risk Factors Present?: No Other Risk Factors: No Thrombosis Risk Factor Assessment Level: Very Low Risk
[2023-01-28 15:28] LABS: Glucose,Whole Blood 129 mg/dL (70-110)
[2023-01-28 16:57] LABS: Glucose,Whole Blood 139 mg/dL (70-110)
[2023-01-28 17:20] LABS: African American GFR (CKD) >90 (>60 ml/min/1.73 sqM); Anion Gap 13 mmol/L; Blood Urea Nitrogen 19 mg/dL (9-20); Carbon Dioxide 16 mmol/L (22-30); Chloride 106 mmol/L (98-107); Glucose 130 mg/dL (74-99); Non-African American GFR(CKD) >90 (>60 ml/min/1.73 sqM); Potassium 4.2 mmol/L (3.5-5.1); Sodium 135 mmol/L (137-145)
[2023-01-28 18:09] LABS: Glucose,Whole Blood 141 mg/dL (70-110)
[2023-01-28 19:48] LABS: Glucose,Whole Blood 177 mg/dL (70-110)
[2023-01-28] MEDS: MIRTAZAPINE 15 MG TAB PO SCH (19:51)
[2023-01-28 21:11] LABS: Glucose,Whole Blood 195 mg/dL (70-110)
[2023-01-28 21:22] LABS: African American GFR (CKD) >90 (>60 ml/min/1.73 sqM); Anion Gap 9 mmol/L; Blood Urea Nitrogen 18 mg/dL (9-20); Carbon Dioxide 19 mmol/L (22-30); Chloride 103 mmol/L (98-107); Non-African American GFR(CKD) >90 (>60 ml/min/1.73 sqM); Phosphorus 2.8 mg/dL (2.5-4.5); Potassium 4.2 mmol/L (3.5-5.1); Sodium 131 mmol/L (137-145)
[2023-01-28 22:00] LABS: Glucose,Whole Blood 214 mg/dL (70-110)
[2023-01-28] MEDS: INSULIN DETEMIR (LEVEMIR) 100 UNIT/ML SYR SQ SCH (22:10)
[2023-01-28 22:59] LABS: Glucose,Whole Blood 220 mg/dL (70-110)
[2023-01-28] MEDS ORDERED: INSULIN ASPART (NovoLOG) 100 UNIT/ML VIAL SQ ONE (23:08)
[2023-01-29 02:06] LABS: Glucose,Whole Blood 107 mg/dL (70-110)
[2023-01-29] MEDS: D5-0.45% NACL WITH KCL 20MEQ/L 1,000 ML IV SCH (04:36)
[2023-01-29 05:46] LABS: Glucose,Whole Blood 52 mg/dL (70-110)
[2023-01-29 06:04] LABS: Basophils % (A) 0 %; Eosinophils # (A) 0.1 k/uL (0-0.7); Eosinophils % (A) 1 %; HCT 38.8 % (39.0-53.0); HGB 12.8 gm/dL (13.0-17.5); Lymphocytes # (A) 2.3 k/uL (1.0-4.8); Lymphocytes % (A) 11 %; MCH 29.4 pg (25.0-35.0); MCV 89.2 fL (80.0-100.0); Mean Platelet Volume 6.8; Monocytes % (A) 5 %; Neutrophils # (A) 16.5 k/uL (1.3-7.7); Neutrophils % (A) 82 %; Platelet Count 410 k/uL (150-450); RBC 4.35 m/uL (4.30-5.90); RDW 14.9 % (11.5-15.5); WBC 20.2 k/uL (3.8-10.6)
[2023-01-29 06:06] LABS: Glucose,Whole Blood 56 mg/dL (70-110)
[2023-01-29 06:23] LABS: ALT 26 U/L (4-49); AST 21 U/L (17-59); African American GFR (CKD) >90 (>60 ml/min/1.73 sqM); Albumin 4.3 g/dL (3.5-5.0); Alkaline Phosphatase 93 U/L (38-126); Anion Gap 13 mmol/L; Blood Urea Nitrogen 11 mg/dL (9-20); Calcium 9.4 mg/dL (8.4-10.2); Carbon Dioxide 22 mmol/L (22-30); Chloride 101 mmol/L (98-107); Magnesium 1.8 mg/dL (1.6-2.3); Non-African American GFR(CKD) >90 (>60 ml/min/1.73 sqM); Phosphorus 3.1 mg/dL (2.5-4.5); Potassium 3.6 mmol/L (3.5-5.1); Sodium 136 mmol/L (137-145); Total Bilirubin 0.7 mg/dL (0.2-1.3); Total Protein 7.3 g/dL (6.3-8.2)
[2023-01-29 06:29] LABS: Glucose,Whole Blood 81 mg/dL (70-110)
[2023-01-29] MEDS: INSULIN ASPART (NovoLOG) 100 UNIT/ML VIAL SQ SCH ×7 (06:35→20:26)
[2023-01-29] MEDS: INSULIN REGULAR 100 UNIT in SODIUM CHLORIDE 0.9% 100 ML IV SCH (06:37)
[2023-01-29 06:40] LABS: Glucose 40 mg/dL (74-99)
[2023-01-29] MEDS ORDERED: MAGNESIUM SULFATE-D5W PMX 1 GM in DEXTROSE/WATER 1 100ML.BAG IVPB ONE (06:52)
[2023-01-29] MEDS ORDERED: POTASSIUM CHLORIDE ER 20 MEQ TAB.ER PO SCH (07:00)
[2023-01-29 07:04] LABS: Glucose,Whole Blood 141 mg/dL (70-110)
[2023-01-29 08:11] LABS: Glucose,Whole Blood 108 mg/dL (70-110)
[2023-01-29] MEDS: SODIUM CHLORIDE 0.9% 1,000 ML IV SCH ×3 (09:01→15:29)
[2023-01-29] MEDS: PANTOPRAZOLE 40 MG/10 ML VIAL IV SCH (09:06)
[2023-01-29 10:52] VITALS: BMI 19.3
--- NOTE | 2023-01-29 10:55 | P.PN ---
Subjective Progress Note Date: 01/29/23 Principal diagnosis: Diabetic ketoacidosis. I am seeing this patient in consultation today 01/28/2023 for acute diabetic ketoacidosis. This is a 27-year-old white male with past medical history significant for type 1 diabetes mellitus and medication noncompliance. Patient has had numerous hospital admissions for diabetic ketoacidosis, and was recently discharged from the hospital on January 06. He's had multiple psychiatric evaluations for his ongoing severe depression and self harming behavior. Patient was brought in by EMS with complaints of nausea and vomiting. Denies any abdominal pain, diarrhea, constipation, hematemesis. Denies any infectious symptoms. He was found to be in DKA. Serum bicarb was less than 5, anion gap unmeasurable, glucose 515, and he was acetone positive. Patient has been started on the DKA protocol. Insulin is currently infusing at 7 units per hour. He received 2 L normal saline bolus in the emergency room. Normal saline is currently infusing at 200 ml per hour. CBC on arrival showed WBC count of 13.1, hemoglobin 13.8, hematocrit 43.2, platelets 171. BMP on arrival shows sodium 134, potassium 4.8, chloride 95, serum bicarb less than 5, BUN 26, creatinine 1.14, glucose 515. VBG was consistent with non-anion gap metabolic acidosis. Kussmaul respirations present. He is tachycardic but normotensive. On room air. Answers questions properly. He will be monitored in the intensive care unit until his DKA resolved. Progress note dated 01/29/2023. 27-year-old male well-known to our service. He has a history of diabetes, with multiple episodes of diabetic ketoacidosis. The patient was readmitted to the hospital with a diagnosis of DKA. He was admitted to the intensive care unit, room 253. Today, he's on room air. He's not receiving any IV fluids. The patient's most recent electrolyte profile, was much improved. Clinically, he is feeling much better, and had an uneventful night. White count 20.2, he will been 12.8, hematocrit 38.8, with a normal platelet count. Sodium 136, potassium 3.6, chlorides 101, CO2 22, anion gap 13, the 111, creatinine 0.76. The rest of his labs look excellent. Objective - Vital Signs Vital signs: Vital Signs Temp 98.2 F 01/29/23 08:00 Pulse 93 01/29/23 10:00 Resp 15 01/29/23 10:00 BP 148/103 01/29/23 10:00 Pulse Ox 96 01/29/23 10:00 FiO2 Intake & Output 01/28/23 01/29/23 01/29/23 18:59 06:59 18:59 Intake Total 8367.693 7959.71 680 Output Total 975 675 300 Balance 381.103 8601.71 380 Weight 70.1 kg Intake: IV 200 480 80 D5-0.45% NaCl with KCl 300 20Meq/l 1,000 ml @ 150 mls/hr IV .[id number] [facility] Rx# :[id number] KVO 180 80 Sodium Chloride 0.9% 1, 200 000 ml @ 200 mls/hr IV . Q5H [facility] Rx#:[id number] Intake, IV Titration 1773.177 151.71 Amount D5-0.45% NaCl with KCl 1650 150 20Meq/l 1,000 ml @ 150 mls/hr IV .Q6H40M [facility] Rx# :[id number] Insulin Regular 100 unit 123.177 1.71 In Sodium Chloride 0.9% 100 ml @ 0.1 UNITS/KG/HR 7.559 mls/hr IV .[id number] [facility] Rx#:[id number] Oral 1253 600 Output: Urine 775 675 300 Emesis 200 Other: Voiding Method Urinal Urinal Urinal - Exam No acute distress, oriented 3. HEENT examination is grossly unremarkable. Neck supple. Full range of motion. No adenopathy thyromegaly or neck vein distention. Cardiovascular examination reveals regular rhythm rate. S1-S2 normal. No S3 or S4. No discernible murmur noted. Heart rate 93 bpm. Lungs reveal clear breath sounds. Breath sounds are equal bilaterally. No adventitious lung sounds including wheezes rhonchi or crackles. Abdomen soft bowel sounds are heard. No masses or tenderness. Extremities are intact. No cyanosis clubbing or edema. Skin is without rash or lesion. Neurologic examination is brief but nonfocal. - Labs CBC & Chem 7: 01/29/23 05:33 01/29/23 05:33 Labs: Abnormal Lab Results - Last 24 Hours (Table) 01/28/23 01/28/23 01/28/23 Range/Units 11:06 12:06 12:53 WBC (3.8-10.6) k/uL Hgb (13.0-17.5) gm/dL Hct (39.0-53.0) % Neutrophils # (1.3-7.7) k/uL Sodium 136 L (137-145) mmol/L Carbon Dioxide 15 L (22-30) mmol/L BUN 22 H (9-20) mg/dL Glucose 154 H (74-99) mg/dL POC Glucose (mg/dL) 173 H 164 H (70-110) mg/dL Hemoglobin A1c (<=6.0) % 01/28/23 01/28/23 01/28/23 Range/Units 13:01 14:05 15:26 WBC (3.8-10.6) k/uL Hgb (13.0-17.5) gm/dL Hct (39.0-53.0) % Neutrophils # (1.3-7.7) k/uL Sodium (137-145) mmol/L Carbon Dioxide (22-30) mmol/L BUN (9-20) mg/dL Glucose (74-99) mg/dL POC Glucose (mg/dL) 162 H 147 H 129 H (70-110) mg/dL Hemoglobin A1c (<=6.0) % 01/28/23 01/28/23 01/28/23 Range/Units 16:33 16:56 18:08 WBC (3.8-10.6) k/uL Hgb (13.0-17.5) gm/dL Hct (39.0-53.0) % Neutrophils # (1.3-7.7) k/uL Sodium 135 L (137-145) mmol/L Carbon Dioxide 16 L (22-30) mmol/L BUN (9-20) mg/dL Glucose 130 H (74-99) mg/dL POC Glucose (mg/dL) 139 H 141 H (70-110) mg/dL Hemoglobin A1c (<=6.0) % 01/28/23 01/28/23 01/28/23 Range/Units 19:47 20:50 21:10 WBC (3.8-10.6) k/uL Hgb (13.0-17.5) gm/dL Hct (39.0-53.0) % Neutrophils # (1.3-7.7) k/uL Sodium 131 L (137-145) mmol/L Carbon Dioxide 19 L (22-30) mmol/L BUN (9-20) mg/dL Glucose (74-99) mg/dL POC Glucose (mg/dL) 177 H 195 H (70-110) mg/dL Hemoglobin A1c (<=6.0) % 01/28/23 01/28/23 01/29/23 Range/Units 21:58 22:58 05:33 WBC (3.8-10.6) k/uL Hgb (13.0-17.5) gm/dL Hct (39.0-53.0) % Neutrophils # (1.3-7.7) k/uL Sodium (137-145) mmol/L Carbon Dioxide (22-30) mmol/L BUN (9-20) mg/dL Glucose (74-99) mg/dL POC Glucose (mg/dL) 214 H 220 H (70-110) mg/dL Hemoglobin A1c 9.8 H (<=6.0) % 01/29/23 01/29/23 01/29/23 Range/Units 05:33 05:33 05:45 WBC 20.2 H (3.8-10.6) k/uL Hgb 12.8 L (13.0-17.5) gm/dL Hct 38.8 L (39.0-53.0) % Neutrophils # 16.5 H (1.3-7.7) k/uL Sodium 136 L (137-145) mmol/L Carbon Dioxide (22-30) mmol/L BUN (9-20) mg/dL Glucose 40 L* (74-99) mg/dL POC Glucose (mg/dL) 52 L (70-110) mg/dL Hemoglobin A1c (<=6.0) % 01/29/23 01/29/23 Range/Units 06:05 07:01 WBC (3.8-10.6) k/uL Hgb (13.0-17.5) gm/dL Hct (39.0-53.0) % Neutrophils # (1.3-7.7) k/uL Sodium (137-145) mmol/L Carbon Dioxide (22-30) mmol/L BUN (9-20) mg/dL Glucose (74-99) mg/dL POC Glucose (mg/dL) 56 L 141 H (70-110) mg/dL Hemoglobin A1c (<=6.0) % Assessment and Plan Assessment: Acute diabetic ketoacidosis, secondary to noncompliance with medications. Severe anion gap metabolic acidosis, resolved. Dehydration, osmotic in nature. Type 1 diabetes mellitus, with very poor compliance. Leukocytosis, secondary to DKA. Diabetic neuropathy. Diabetic gastroparesis. History of major depression. Chronic marijuana use. Chronic and ongoing nicotine dependence. Plan: Plan dated 01/29/2023. The patient and was transitioned, to his usual regimen. He be transferred to the general medical floor, without telemetry. Labs, x-rays, and medications are reviewed. The patient's overall prognosis in my opinion is poor, as he has had more than 25 admissions to the hospital this year alone. The patient is at significant risk for significant diabetic complications including neuropathy, nephropathy, etc. In my opinion, the patient should have a court appointed medical decision-maker. No additional recommendations are made at this time. Time with Patient: Less than 30
[2023-01-29 11:24] LABS: Glucose,Whole Blood 265 mg/dL (70-110)
--- NOTE | 2023-01-29 13:41 | P.PN ---
Subjective Progress Note Date: 01/29/23 patient is 27-year-old gentleman past medical history significant for severe depression, insulin-dependent diabetes mellitus presented to the ER because of nausea and vomiting. Patient has been admitted multiple times in the in the past with similar complaints and found to be in DKA. Patient is noncompliant. Patient last admission was in December of this year with similar presentation. Patient stated he was all right 2 days ago and started having nausea and vomiting. Patient was also having decreased appetite. Denies any abdominal pain. No complaint of fever or chills at home. Denies any lightheadedness or dizziness. Because of these symptoms, patient was brought to the ER Initial lab work done in the ER showed WBC 13.1, hemoglobin 13.8, platelet count 471, sodium 134, potassium 4.8, bicarb less than 5, G1 26, creatinine 1.14, glucose 115 UA positive for ketones and +4 glucose Patient was found to be in DKA, started on insulin drip and was admitted to ICU 01/29. Patient seen and examined. Patient is off insulin drip, currently on subcu insulin. Tolerating diet. REVIEW OF SYSTEMS: CONSTITUTIONAL: No fever, no malaise,. CARDIOVASCULAR: No chest pain, no palpitations, no syncope. PULMONARY: No shortness of breath, no cough, GASTROINTESTINAL: No diarrhea, no nausea, no vomiting, no abdominal pain. NEUROLOGICAL: No headaches, no weakness, PHYSICAL EXAMINATION: GENERAL: The patient is alert and oriented x3, not in any acute distress. Well developed, well nourished. HEENT: Pupils are round and equally reacting to light. EOMI. No scleral icterus. No conjunctival pallor. Normocephalic, atraumatic. No pharyngeal erythema. No thyromegaly. CARDIOVASCULAR: S1 and S2 present. No murmurs, rubs, or gallops. PULMONARY: Chest is clear to auscultation, no wheezing or crackles. ABDOMEN: Soft, nontender, nondistended, normoactive bowel sounds. No palpable organomegaly. MUSCULOSKELETAL: No joint swelling or deformity. EXTREMITIES: No cyanosis, clubbing, or pedal edema. NEUROLOGICAL: Gross neurological examination did not reveal any focal deficits. SKIN: No rashes. Assessment and plan DKA Insulin-dependent diabetes mellitus Medical noncompliance Nausea and vomiting Depression Diabetic neuropathy History of major depression Chronic marijuana use Chronic ongoing nicotine dependence Monitor vital signs Monitor CBC Monitor CMP Monitor blood sugar levels Continue Levemir 30 units daily continue NovoLog 7 units with meals Continue sliding scale insulin Patient to be transferred out of ICU Labs and medication were reviewed.. Continue same treatment. Continue with symptomatic treatment. Resume home medication. Monitor labs and vitals. DVT and GI prophylaxis. Further recommendations as per clinical course of the patient Dictation was produced using [employer] dictation software. please excuse any grammatical, word or spelling errors. Objective - Vital Signs Vital signs: Vital Signs Temp 98.2 F 01/29/23 08:00 Pulse 93 01/29/23 10:00 Resp 15 01/29/23 10:00 BP 148/103 01/29/23 10:00 Pulse Ox 96 01/29/23 10:00 FiO2 Intake & Output 01/28/23 01/29/23 01/29/23 18:59 06:59 18:59 Intake Total 1536.076 4556.71 680 Output Total 975 675 300 Balance 466.981 8071.71 380 Weight 70.1 kg 70.1 kg Intake: IV 200 480 80 D5-0.45% NaCl with KCl 300 20Meq/l 1,000 ml @ 150 mls/hr IV .Q6H40M [facility] Rx# :[id number] KVO 180 80 Sodium Chloride 0.9% 1, 200 000 ml @ 200 mls/hr IV . Q5H [facility] Rx#:[id number] Intake, IV Titration 1773.177 151.71 Amount D5-0.45% NaCl with KCl 1650 150 20Meq/l 1,000 ml @ 150 mls/hr IV .Q6H40M [facility] Rx# :[id number] Insulin Regular 100 unit 123.177 1.71 In Sodium Chloride 0.9% 100 ml @ 0.1 UNITS/KG/HR 7.559 mls/hr IV .[id number] [facility] Rx#:[id number] Oral 1253 600 Output: Urine 775 675 300 Emesis 200 Other: Voiding Method Urinal Urinal Urinal - Labs CBC & Chem 7: 01/29/23 05:33 01/29/23 05:33 Labs: Abnormal Lab Results - Last 24 Hours (Table) 01/28/23 01/28/23 01/28/23 Range/Units 12:53 14:05 15:26 WBC (3.8-10.6) k/uL Hgb (13.0-17.5) gm/dL Hct (39.0-53.0) % Neutrophils # (1.3-7.7) k/uL Sodium 136 L (137-145) mmol/L Carbon Dioxide 15 L (22-30) mmol/L BUN 22 H (9-20) mg/dL Glucose 154 H (74-99) mg/dL POC Glucose (mg/dL) 147 H 129 H (70-110) mg/dL Hemoglobin A1c (<=6.0) % 01/28/23 01/28/23 01/28/23 Range/Units 16:33 16:56 18:08 WBC (3.8-10.6) k/uL Hgb (13.0-17.5) gm/dL Hct (39.0-53.0) % Neutrophils # (1.3-7.7) k/uL Sodium 135 L (137-145) mmol/L Carbon Dioxide 16 L (22-30) mmol/L BUN (9-20) mg/dL Glucose 130 H (74-99) mg/dL POC Glucose (mg/dL) 139 H 141 H (70-110) mg/dL Hemoglobin A1c (<=6.0) % 01/28/23 01/28/23 01/28/23 Range/Units 19:47 20:50 21:10 WBC (3.8-10.6) k/uL Hgb (13.0-17.5) gm/dL Hct (39.0-53.0) % Neutrophils # (1.3-7.7) k/uL Sodium 131 L (137-145) mmol/L Carbon Dioxide 19 L (22-30) mmol/L BUN (9-20) mg/dL Glucose (74-99) mg/dL POC Glucose (mg/dL) 177 H 195 H (70-110) mg/dL Hemoglobin A1c (<=6.0) % 01/28/23 01/28/23 01/29/23 Range/Units 21:58 22:58 05:33 WBC (3.8-10.6) k/uL Hgb (13.0-17.5) gm/dL Hct (39.0-53.0) % Neutrophils # (1.3-7.7) k/uL Sodium (137-145) mmol/L Carbon Dioxide (22-30) mmol/L BUN (9-20) mg/dL Glucose (74-99) mg/dL POC Glucose (mg/dL) 214 H 220 H (70-110) mg/dL Hemoglobin A1c 9.8 H (<=6.0) % 01/29/23 01/29/23 01/29/23 Range/Units 05:33 05:33 05:45 WBC 20.2 H (3.8-10.6) k/uL Hgb 12.8 L (13.0-17.5) gm/dL Hct 38.8 L (39.0-53.0) % Neutrophils # 16.5 H (1.3-7.7) k/uL Sodium 136 L (137-145) mmol/L Carbon Dioxide (22-30) mmol/L BUN (9-20) mg/dL Glucose 40 L* (74-99) mg/dL POC Glucose (mg/dL) 52 L (70-110) mg/dL Hemoglobin A1c (<=6.0) % 01/29/23 01/29/23 01/29/23 Range/Units 06:05 07:01 11:23 WBC (3.8-10.6) k/uL Hgb (13.0-17.5) gm/dL Hct (39.0-53.0) % Neutrophils # (1.3-7.7) k/uL Sodium (137-145) mmol/L Carbon Dioxide (22-30) mmol/L BUN (9-20) mg/dL Glucose (74-99) mg/dL POC Glucose (mg/dL) 56 L 141 H 265 H (70-110) mg/dL Hemoglobin A1c (<=6.0) %
[2023-01-29 16:30] LABS: Glucose,Whole Blood 204 mg/dL (70-110)
[2023-01-29 20:17] LABS: Glucose,Whole Blood 242 mg/dL (70-110)
[2023-01-29] MEDS: MIRTAZAPINE 15 MG TAB PO SCH (20:27)
[2023-01-29] MEDS: INSULIN DETEMIR (LEVEMIR) 100 UNIT/ML SYR SQ SCH (20:27)
[2023-01-30 06:40] LABS: Glucose,Whole Blood 61 mg/dL (70-110)
[2023-01-30] MEDS: INSULIN ASPART (NovoLOG) 100 UNIT/ML VIAL SQ SCH ×4 (06:41→11:47)
[2023-01-30 06:57] LABS: Glucose,Whole Blood 81 mg/dL (70-110)
[2023-01-30] MEDS: PANTOPRAZOLE 40 MG/10 ML VIAL IV SCH (09:10)
[2023-01-30 09:14] VITALS: BP 114/87; PULSE 87; RESP 18; TEMP 97.7
--- NOTE | 2023-01-30 10:43 | P.PN ---
Subjective Progress Note Date: 01/30/23 I am seeing this patient in consultation today 01/28/2023 for acute diabetic ketoacidosis. This is a 27-year-old white male with past medical history significant for type 1 diabetes mellitus and medication noncompliance. Patient has had numerous hospital admissions for diabetic ketoacidosis, and was recently discharged from the hospital on January 06. He's had multiple psychiatric evaluations for his ongoing severe depression and self harming behavior. Patient was brought in by EMS with complaints of nausea and vomiting. Denies any abdominal pain, diarrhea, constipation, hematemesis. Denies any infectious symptoms. He was found to be in DKA. Serum bicarb was less than 5, anion gap unmeasurable, glucose 515, and he was acetone positive. Patient has been started on the DKA protocol. Insulin is currently infusing at 7 units per hour. He received 2 L normal saline bolus in the emergency room. Normal saline is currently infusing at 200 ml per hour. CBC on arrival showed WBC count of 13.1, hemoglobin 13.8, hematocrit 43.2, platelets 171. BMP on arrival shows sodium 134, potassium 4.8, chloride 95, serum bicarb less than 5, BUN 26, creatinine 1.14, glucose 515. VBG was consistent with non-anion gap metabolic acidosis. Kussmaul respirations present. He is tachycardic but normotensive. On room air. Answers questions properly. He will be monitored in the intensive care unit until his DKA resolved. Progress note dated 01/29/2023. 27-year-old male well-known to our service. He has a history of diabetes, with multiple episodes of diabetic ketoacidosis. The patient was readmitted to the hospital with a diagnosis of DKA. He was admitted to the intensive care unit, room 253. Today, he's on room air. He's not receiving any IV fluids. The patient's most recent electrolyte profile, was much improved. Clinically, he is feeling much better, and had an uneventful night. White count 20.2, he will been 12.8, hematocrit 38.8, with a normal platelet count. Sodium 136, potassium 3.6, chlorides 101, CO2 22, anion gap 13, the 111, creatinine 0.76. The rest of his labs look excellent. The patient is seen today 01/30/2023 in follow-up in the intensive care unit. He is regular medical floor overflow. He is awake and alert and oriented. Having breakfast. Current blood sugar 81. He's been resumed on Levemir 30 mg in the evening along with a NovoLog sliding scale. He is maintaining good O2 saturations in the upper 90s on room air. He's been afebrile. Hemodynamically stable. Objective - Vital Signs Vital signs: Vital Signs Temp 97.7 F 01/30/23 09:13 Pulse 87 01/30/23 09:13 Resp 18 01/30/23 09:13 BP 114/87 01/30/23 09:13 Pulse Ox 99 01/30/23 09:13 FiO2 Intake & Output 01/29/23 01/30/23 01/30/23 18:59 06:59 18:59 Intake Total 1380 750 Output Total 1300 Balance 80 750 Weight 70.1 kg 71.1 kg Intake: IV 80 KVO 80 Oral 1300 750 Output: Urine 1300 Other: Voiding Method Urinal # Voids 1 - Exam GENERAL EXAM: Alert, thin 27-year-old male, on room air, comfortable in no apparent distress. HEAD: Normocephalic. EYES: Normal reaction of pupils, equal size. NOSE: Clear with pink turbinates. THROAT: No erythema or exudates. NECK: No masses, no JVD. CHEST: No chest wall deformity. LUNGS: Equal air entry with no crackles, wheeze, rhonchi or dullness. CVS: S1 and S2 normal with no audible murmur, regular rhythm. ABDOMEN: No hepatosplenomegaly, normal bowel sounds, no guarding or rigidity. SPINE: No scoliosis or deformity SKIN: No rashes CENTRAL NERVOUS SYSTEM: No focal deficits, tone is normal in all 4 extremities. EXTREMITIES: There is no peripheral edema. No clubbing, no cyanosis. Peripheral pulses are intact. - Labs CBC & Chem 7: 01/29/23 05:33 01/29/23 05:33 Labs: Abnormal Lab Results - Last 24 Hours (Table) 01/29/23 01/29/23 01/29/23 Range/Units 11:23 16:29 20:16 POC Glucose (mg/dL) 265 H 204 H 242 H (70-110) mg/dL 01/30/23 Range/Units 06:39 POC Glucose (mg/dL) 61 L (70-110) mg/dL Assessment and Plan Assessment: Acute diabetic ketoacidosis, secondary to noncompliance with medications. Severe anion gap metabolic acidosis, resolved. Dehydration, osmotic in nature. Type 1 diabetes mellitus, with very poor compliance. Leukocytosis, secondary to DKA. Diabetic neuropathy. Diabetic gastroparesis. History of major depression. Chronic marijuana use. Chronic and ongoing nicotine dependence. Plan: The patient was seen and evaluated Currently stable and on room air Back on his usual diabetes medications Cleared for discharge We will see as needed I have personally seen and examined the patient, performed the documentation and the assessment and plan as written. Number of minutes spent on the visit: 10.
[2023-01-30 11:28] LABS: Glucose,Whole Blood 365 mg/dL (70-110)
== END 2023-01-30 13:20 | disposition left against medical advice (07) | DRG 420 ==
LOC: EC 01:10 → 2SICU 02:18
PROVIDERS: ADMIT Family Medicine; ATTEND Family Medicine
DX: E10.10 Type 1 diabetes mellitus with ketoacidosis without coma (principal); Z79.4 Long term (current) use of insulin; E10.43 Type 1 diabetes mellitus with diabetic autonomic (poly)neuropathy; E86.0 Dehydration; F17.210 Nicotine dependence, cigarettes, uncomplicated; F32.A Depression, unspecified; F41.9 Anxiety disorder, unspecified; K31.84 Gastroparesis; Z79.899 Other long term (current) drug therapy; Z82.49 Family history of ischemic heart disease and other diseases of the circulatory system; Z91.148 Patient's other noncompliance with medication regimen for other reason; Z91.199 Patient's noncompliance with other medical treatment and regimen due to unspecified reason; L30.9 Dermatitis, unspecified; D72.829 Elevated white blood cell count, unspecified; R11.2 Nausea with vomiting, unspecified
CPT/HCPCS: 36415; 80051; 80053; 81003; 82009; 82565; 82803; 82947; 83036; 83690; 83735; 84100; 84520; 85025; 93005; 96361; 96374; 96375; 99291

== ENCOUNTER 2023-02-01 03:15 | Inpatient (IN) | payer OTHER ==
[2023-02-01] MEDS ORDERED: SODIUM CHLORIDE 0.9% 1,000 ML IV ONE ×2 (03:25→04:21)
[2023-02-01 03:34] LABS: Glucose,Whole Blood >600 mg/dL (70-110)
[2023-02-01 03:45] LABS: HCT 44.4 % (39.0-53.0); HGB 13.1 gm/dL (13.0-17.5); Hypochromasia Marked; MCH 29.5 pg (25.0-35.0); MCHC 29.6 g/dL (31.0-37.0); Macrocytosis Slight; Mean Platelet Volume 7.7; Platelet Count 435 k/uL (150-450); RBC 4.44 m/uL (4.30-5.90); RDW 14.6 % (11.5-15.5); WBC 32.2 k/uL (3.8-10.6)
[2023-02-01 03:56] LABS: ALT 28 U/L (4-49); AST 28 U/L (17-59); African American GFR (CKD) 63 (>60 ml/min/1.73 sqM); Albumin 5.5 g/dL (3.5-5.0); Alkaline Phosphatase 147 U/L (38-126); Blood Urea Nitrogen 27 mg/dL (9-20); Calcium 10.2 mg/dL (8.4-10.2); Chloride 94 mmol/L (98-107); Non-African American GFR(CKD) 54 (>60 ml/min/1.73 sqM); Sodium 137 mmol/L (137-145); Total Bilirubin 0.8 mg/dL (0.2-1.3); Total Protein 8.6 g/dL (6.3-8.2)
[2023-02-01] MEDS ORDERED: METOCLOPRAMIDE 5 MG/ML 2 ML VIAL IVP STA (04:06)
[2023-02-01] MEDS ORDERED: diphenhydrAMINE 50 MG/ML 1 ML VIAL IVP STA (04:06)
[2023-02-01 04:13] LABS: MCV 99.9 fL (80.0-100.0)
[2023-02-01 04:16] LABS: Carbon Dioxide <5 mmol/L (22-30); Glucose 772 mg/dL (74-99); Potassium 6.6 mmol/L (3.5-5.1)
[2023-02-01] MEDS ORDERED: INSULIN REGULAR 100 UNIT/ML VIAL (IV) IV ONE (04:22)
[2023-02-01] MEDS ORDERED: CALCIUM CHLORIDE 100 MG/ML 10 ML SYRINGE IVP STA (04:22)
[2023-02-01] MEDS ORDERED: SODIUM BICARB 8.4% 50 ML SYR (1 MEQ/ML) IV STA (04:23)
[2023-02-01 04:34] LABS: VBG PH 6.94 (7.31-7.41)
--- NOTE | 2023-02-01 04:37 | ED ---
General Adult HPI - General Chief complaint: Nausea/Vomiting/Diarrhea Stated complaint: High blood sugar Time Seen by Provider: 02/01/23 03:20 Source: EMS Mode of arrival: EMS - History of Present Illness Initial comments: 27-year-old male well known to the emergency department who presents today from home. Mom called EMS as the patient was nauseated and vomiting. He does have a history of type 1 diabetes with several episodes of DKA. Patient states that he does take his insulin however he has been known to be noncompliant. Patient does not provide much history. EMS was unable to establish an IV. HPI is limited due to patient unwilling to participate in his care - Related Data Home Medications Medication Instructions Recorded Confirmed Gabapentin 600 mg PO TID PRN 10/14/22 01/28/23 Famotidine [Pepcid] 20 mg PO BID 12/31/22 01/28/23 INSULIN LISPRO (HumaLOG) [humaLOG] 7 units SQ AC-TID 12/31/22 01/28/23 Insulin Glargine [Lantus Vial] 30 unit SQ DAILY 12/31/22 01/28/23 Mirtazapine 7.5 mg PO HS 12/31/22 01/28/23 Previous Rx's Medication Instructions Recorded Losartan [Cozaar] 25 mg PO DAILY #10 tab 01/06/23 Allergies Allergy/AdvReac Type Severity Reaction Status Date / Time No Known Allergies Allergy Verified 02/01/23 03:23 Review of Systems ROS Statement: Those systems with pertinent positive or pertinent negative responses have been documented in the HPI. ROS Other: All systems not noted in ROS Statement are negative. Past Medical History Past Medical History: Asthma, Diabetes Mellitus, Neurologic Disorder, Skin Disorder Additional Past Medical History / Comment(s): IDDM type I, neuropathy bilateral feet, DKA, eczema. History of Any Multi-Drug Resistant Organisms: None Reported Past Surgical History: Adenoidectomy Additional Past Surgical History / Comment(s): 2003 Recent EGD- gastritis Past Anesthesia/Blood Transfusion Reactions: No Reported Reaction Past Psychological History: Anxiety, Depression Smoking Status: Former smoker Past Alcohol Use History: None Reported Past Drug Use History: None Reported - Past Family History Mother Family Medical History: CVA/TIA Additional Family Medical History / Comment(s): TIA Father Family Medical History: Hyperlipidemia, Hypertension Additional Family Medical History / Comment(s): . General Exam Limitations: altered mental status General appearance: alert Head exam: Present: atraumatic, normocephalic, normal inspection Eye exam: Present: normal appearance, PERRL, EOMI. Absent: scleral icterus, conjunctival injection, periorbital swelling ENT exam: Present: mucous membranes dry Respiratory exam: Present: normal lung sounds bilaterally. Absent: respiratory distress, wheezes, rales, rhonchi, stridor Cardiovascular Exam: Present: tachycardia GI/Abdominal exam: Present: soft, normal bowel sounds. Absent: distended, tenderness, guarding, rebound, rigid Psychiatric exam: Present: flat affect Course Vital Signs 02/01/23 02/01/23 02/01/23 03:19 04:45 05:00 Temperature 97.6 F Pulse Rate 133 H 126 H 133 H Respiratory 24 24 24 Rate Blood Pressure 112/58 100/52 120/72 O2 Sat by Pulse 100 99 99 Oximetry 02/01/23 02/01/23 02/01/23 05:15 05:30 05:45 Temperature Pulse Rate 133 H 133 H 133 H Respiratory 24 24 24 Rate Blood Pressure 119/64 97/50 115/61 O2 Sat by Pulse 99 99 99 Oximetry 02/01/23 02/01/23 02/01/23 06:00 06:15 06:30 Temperature Pulse Rate 133 H 130 H 130 H Respiratory 24 24 24 Rate Blood Pressure 108/60 122/74 112/63 O2 Sat by Pulse 99 99 99 Oximetry 02/01/23 06:45 Temperature Pulse Rate 125 H Respiratory 42 H Rate Blood Pressure 115/69 O2 Sat by Pulse 99 Oximetry Medical Decision Making - Medical Decision Making Was pt. sent in by a medical professional or institution (, PA, TECHNICAL SUPPORT PROFESSIONAL, urgent care, hospital, or long term...) When possible be specific @ -No Did you speak to anyone other than the patient for history (EMS, parent, family, police, friend...)? What history was obtained from this source @ -I spoke with EMS in regards to the patient's history Did you review nursing and triage notes (agree or disagree)? Why? @ -I reviewed and agree with nursing and triage notes Were old charts reviewed (outside hosp., previous admission, EMS record, old EKG, old radiological studies, urgent care reports/EKG's, long term records)? Report findings @ -Old charts were reviewed. I reviewed the discharge summary from January 30 where the patient was hospitalized for DKA Differential Diagnosis (chest pain, altered mental status, abdominal pain women, abdominal pain men, vaginal bleeding, weakness, fever, dyspnea, syncope, headache, dizziness, GI bleed, back pain, seizure, CVA, palpatations, mental health, musculoskeletal)? @ -Differential Altered Mental Status: Hypoglycemia, DKA, hypercapnia, ETOH, overdose, CO poisoning, trauma, myxedema c m[place], HTN encephalopathy, infection, encephalitis, psychosis, intercranial hemorrhage, hepatic encephalopathy, meningitis, CVA, this is not meant to be an all-inclusive list EKG interpreted by me (3pts min.). @ -Yes and demonstrates sinus tachycardia with a rate of 130. MI interval 164. QRS 97. QTC of 394. Peaked T waves in V2 through V6. X-rays interpreted by me (1pt min.). @ -None done CT interpreted by me (1pt min.). @ -None done U/S interpreted by me (1pt. min.). @ -None done What testing was considered but not performed or refused? (CT, X-rays, U/S, labs)? Why? @ -None What meds were considered but not given or refused? Why? @ -None Did you discuss the management of the patient with other professionals (professionals i.e. , PA, TECHNICAL SUPPORT PROFESSIONAL, lab, RT, psych nurse, social services specialist, acquisition lead, teacher, medical information officer, case consultant)? Give summary @ -Spoke with Dr. Gonzalez as the patient needs to be admitted to the ICU. Additionally spoke with Dr. Valenzuela who will admit the patient Was smoking cessation discussed for >3mins.? @ -No Was critical care preformed (if so, how long)? @ -Yes, 40 minutes Were there social determinants of health that impacted care today? How? (Homelessness, low income, unemployed, alcoholism, drug addiction, transportation, low edu. Level, literacy, decrease access to med. care, intermediate, rehab)? @ -Low literacy Was there de-escalation of care discussed even if they declined (Discuss DNR or withdrawal of care, Hospice)? DNR status @ -No What co-morbidities impacted this encounter? (DM, HTN, Smoking, COPD, CAD, Cancer, CVA, ARF, Chemo, Hep., AIDS, mental health diagnosis, sleep apnea, morbid obesity)? @ -Type 1 diabetes Was patient admitted / discharged? Hospital course, mention meds given and route, prescriptions, significant lab abnormalities, going to OR and other pertinent info. @ -Upon arrival patient was placed into room 6. A thorough history and physical exam was performed. 12-lead EKG was performed which demonstrates peaked T waves. He is placed on continuous pulse ox and cardiac monitoring. IV access is established. Laboratory studies were conducted. Patient has elevated glucose of 772. VBG shows a pH of 6.9. Bicarb is 3. Potassium 6.6. Patient was given a 2 L bolus of normal saline followed by 200 mL/h. He is given an insulin bolus, an amp of bicarb, a gram of calcium chloride for his hyperkalemia. He is started on an insulin drip after his 2 L bolus of normal saline. Patient will be admitted to the ICU. Spoke with Dr. Gonzalez and with Dr. Valenzuela. Patient is awaiting a bed on the floor in stable condition with a guarded prognosis Undiagnosed new problem with uncertain prognosis? @ -No Drug Therapy requiring intensive monitoring for toxicity (Heparin, Nitro, Insulin, Cardizem)? @ -No Were any procedures done? @ -No Diagnosis/symptom? @ -Acute nausea/vomiting, acute DKA, acute leukocytosis, acute hyperkalemia Acute, or Chronic, or Acute on Chronic? @ -Acute on chronic Uncomplicated (without systemic symptoms) or Complicated (systemic symptoms)? @ -complicated Side effects of treatment? @ -No Exacerbation, Progression, or Severe Exacerbation? @ -No Poses a threat to life or bodily function? How? (Chest pain, [place], NC, pneumonia, PE, COPD, DKA, ARF, appy, cholecystitis, CVA, Diverticulitis, Homicidal, Suicidal, threat to staff... and all critical care pts) @ -Yes patient is in DKA - Lab Data Result diagrams: 02/01/23 03:34 02/01/23 03:34 Lab Results 02/01/23 02/01/23 02/01/23 Range/Units 03:31 03:34 03:34 WBC 32.2 H (3.8-10.6) k/uL RBC 4.44 (4.30-5.90) m/uL Hgb 13.1 (13.0-17.5) gm/dL Hct 44.4 (39.0-53.0) % MCV 99.9 D (80.0-100.0) fL MCH 29.5 (25.0-35.0) pg MCHC 29.6 L (31.0-37.0) g/dL RDW 14.6 (11.5-15.5) % Plt Count 435 (150-450) k/uL MPV 7.7 Neutrophils % (Manual) 79 % Band Neuts % (Manual) 7 % Lymphocytes % (Manual) 10 % Monocytes % (Manual) 4 % Metamyelocytes % 1 % Myelocytes % 1 % Neutrophils # (Manual) 27.60 H (1.3-7.7) k/uL Lymphocytes # (Manual) 3.22 (1.0-4.8) k/uL Monocytes # (Manual) 1.29 H (0-1.0) k/uL Metamyelocytes # (Man) 0.32 H (0) k/uL Myelocytes # (Manual) 0.32 H (0) k/uL Nucleated RBCs 0 (0-0) /100 WBC Manual Slide Review Performed Toxic Vacuolation Present Polychromasia Present Hypochromasia Marked Anisocytosis (manual) Present Macrocytosis Slight VBG pH (7.31-7.41) VBG pCO2 (37-51) mmHg VBG HCO3 (24-28) mmol/L Sodium 137 (137-145) mmol/L Potassium 6.6 H* (3.5-5.1) mmol/L Chloride 94 L (98-107) mmol/L Carbon Dioxide <5 L* (22-30) mmol/L Anion Gap mmol/L BUN 27 H (9-20) mg/dL Creatinine 1.71 H (0.66-1.25) mg/dL Est GFR (CKD-EPI)AfAm 63 (>60 ml/min/1.73 sqM) Est GFR (CKD-EPI)NonAf 54 (>60 ml/min/1.73 sqM) Glucose 772 H* (74-99) mg/dL POC Glucose (mg/dL) >600 H (70-110) mg/dL POC Glu Instructor Nurse ID Allegra Eddy Calcium 10.2 (8.4-10.2) mg/dL Total Bilirubin 0.8 (0.2-1.3) mg/dL AST 28 (17-59) U/L ALT 28 (4-49) U/L Alkaline Phosphatase 147 H (38-126) U/L Total Protein 8.6 H (6.3-8.2) g/dL Albumin 5.5 H (3.5-5.0) g/dL Urine Color Urine Appearance (Clear) Urine pH (5.0-8.0) Ur Specific [place] (1.001-1.035) Urine Protein (Negative) Urine Glucose (UA) (Negative) Urine Ketones (Negative) Urine Blood (Negative) Urine Nitrite (Negative) Urine Bilirubin (Negative) Urine Urobilinogen (<2.0) mg/dL Ur Leukocyte Esterase (Negative) Urine Opiates Screen (NotDetected) Ur Oxycodone Screen (NotDetected) Urine Methadone Screen (NotDetected) Ur Propoxyphene Screen (NotDetected) Ur Barbiturates Screen (NotDetected) U Tricyclic Antidepress (NotDetected) Ur Phencyclidine Scrn (NotDetected) Ur Amphetamines Screen (NotDetected) U Methamphetamines Scrn (NotDetected) U Benzodiazepines Scrn (NotDetected) Urine Cocaine Screen (NotDetected) U Marijuana (THC) Screen (NotDetected) Acetone, Qual Positive (Negative) 02/01/23 02/01/23 02/01/23 Range/Units 04:29 05:01 05:01 WBC (3.8-10.6) k/uL RBC (4.30-5.90) m/uL Hgb (13.0-17.5) gm/dL Hct (39.0-53.0) % MCV (80.0-100.0) fL MCH (25.0-35.0) pg MCHC (31.0-37.0) g/dL RDW (11.5-15.5) % Plt Count (150-450) k/uL MPV Neutrophils % (Manual) % Band Neuts % (Manual) % Lymphocytes % (Manual) % Monocytes % (Manual) % Metamyelocytes % % Myelocytes % % Neutrophils # (Manual) (1.3-7.7) k/uL Lymphocytes # (Manual) (1.0-4.8) k/uL Monocytes # (Manual) (0-1.0) k/uL Metamyelocytes # (Man) (0) k/uL Myelocytes # (Manual) (0) k/uL Nucleated RBCs (0-0) /100 WBC Manual Slide Review Toxic Vacuolation Polychromasia Hypochromasia Anisocytosis (manual) Macrocytosis VBG pH 6.94 L* (7.31-7.41) VBG pCO2 14 L* (37-51) mmHg VBG HCO3 3 L* (24-28) mmol/L Sodium (137-145) mmol/L Potassium (3.5-5.1) mmol/L Chloride (98-107) mmol/L Carbon Dioxide (22-30) mmol/L Anion Gap mmol/L BUN (9-20) mg/dL Creatinine (0.66-1.25) mg/dL Est GFR (CKD-EPI)AfAm (>60 ml/min/1.73 sqM) Est GFR (CKD-EPI)NonAf (>60 ml/min/1.73 sqM) Glucose (74-99) mg/dL POC Glucose (mg/dL) (70-110) mg/dL POC Glu Instructor Nurse ID Calcium (8.4-10.2) mg/dL Total Bilirubin (0.2-1.3) mg/dL AST (17-59) U/L ALT (4-49) U/L Alkaline Phosphatase (38-126) U/L Total Protein (6.3-8.2) g/dL Albumin (3.5-5.0) g/dL Urine Color Colorless Urine Appearance Clear (Clear) Urine pH 5.0 (5.0-8.0) Ur Specific [place] 1.019 (1.001-1.035) Urine Protein Negative (Negative) Urine Glucose (UA) 4+ H (Negative) Urine Ketones 4+ H (Negative) Urine Blood Negative (Negative) Urine Nitrite Negative (Negative) Urine Bilirubin Negative (Negative) Urine Urobilinogen <2.0 (<2.0) mg/dL Ur Leukocyte Esterase Negative (Negative) Urine Opiates Screen Not Detected (NotDetected) Ur Oxycodone Screen Not Detected (NotDetected) Urine Methadone Screen Not Detected (NotDetected) Ur Propoxyphene Screen Not Detected (NotDetected) Ur Barbiturates Screen Not Detected (NotDetected) U Tricyclic Antidepress Not Detected (NotDetected) Ur Phencyclidine Scrn Not Detected (NotDetected) Ur Amphetamines Screen Not Detected (NotDetected) U Methamphetamines Scrn Not Detected (NotDetected) U Benzodiazepines Scrn Not Detected (NotDetected) Urine Cocaine Screen Not Detected (NotDetected) U Marijuana (THC) Screen Not Detected (NotDetected) Acetone, Qual (Negative) Disposition Clinical Impression: Diabetic ketoacidosis associated with type 1 diabetes mellitus, Hyperkalemia, Ketonuria, Nausea & vomiting Disposition: ADMITTED IP TO THIS [facility] Condition: Serious Is patient prescribed a controlled substance at d/c from ED?: No Time of Disposition: 05:02 Decision to Admit Reason: Admit from EC Decision Date: 02/01/23 Decision Time: 05:02
[2023-02-01] MEDS: INSULIN REGULAR 100 UNIT in SODIUM CHLORIDE 0.9% 100 ML IV SCH (04:47)
[2023-02-01] MEDS ORDERED: ONDANSETRON 4 MG/2 ML VIAL IVP PRN (05:02)
[2023-02-01] MEDS ORDERED: NALOXONE 0.4 MG/ML 1 ML VIAL IV PRN (05:02)
[2023-02-01 05:40] LABS: Anisocytosis (M) Present; Band Neutrophils % 7 %; Lymphocytes # (M) 3.22 k/uL (1.0-4.8); Metamyelocytes # (M) 0.32 k/uL (0); Metamyelocytes % 1 %; Monocytes # (M) 1.29 k/uL (0-1.0); Myelocytes # (M) 0.32 k/uL (0); Myelocytes % 1 %; Neutrophils % (M) 79 %; Nucleated Red Blood Cells 0 /100 WBC (0-0); Polychromasia Present; Total Cells Counted 200; Toxic Vacuolation Present
[2023-02-01 05:45] LABS: Appearance,Urine Clear (Clear); Bilirubin,Urine Negative (Negative); Blood,Urine Negative (Negative); Color,Urine Colorless; Glucose,Urine (UA) 4+ (Negative); Leukocyte Esterase,Urine Negative (Negative); Nitrite,Urine Negative (Negative); Protein,Urine Negative (Negative); Specific Gravity,Urine 1.019 (1.001-1.035); Urobilinogen,Urine <2.0 mg/dL (<2.0)
[2023-02-01 05:54] LABS: Glucose,Whole Blood 581 mg/dL (70-110)
[2023-02-01 06:23] LABS: Amphetamine Screen,Urine Not Detected (NotDetected); Barbiturate Screen,Urine Not Detected (NotDetected); Benzodiazepines Screen,Urine Not Detected (NotDetected); Cocaine Screen,Urine Not Detected (NotDetected); Methadone Screen, Urine Not Detected (NotDetected); Opiate Screen,Urine Not Detected (NotDetected); Oxycodone Screen, Urine Not Detected (NotDetected); Phencyclidine Screen,Urine Not Detected (NotDetected); Tricyclic Antidepressant,Urine Not Detected (NotDetected); Urn Cannabinoid Scrn Not Detected (NotDetected)
[2023-02-01 06:39] LABS: Ketones,Urine 4+ (Negative)
[2023-02-01 06:52] LABS: Glucose,Whole Blood 466 mg/dL (70-110)
[2023-02-01] MEDS ORDERED: SODIUM CHLORIDE 0.9% 1,000 ML IV SCH (08:00)
[2023-02-01 08:07] LABS: Glucose,Whole Blood 397 mg/dL (70-110)
[2023-02-01 08:59] LABS: Glucose,Whole Blood 317 mg/dL (70-110)
[2023-02-01 10:09] LABS: Glucose,Whole Blood 250 mg/dL (70-110)
[2023-02-01 10:10] VITALS: BMI 17.4
[2023-02-01 10:27] LABS: African American GFR (CKD) >90 (>60 ml/min/1.73 sqM); Anion Gap 26 mmol/L; Blood Urea Nitrogen 26 mg/dL (9-20); Chloride 110 mmol/L (98-107); Glucose 272 mg/dL (74-99); Non-African American GFR(CKD) 89 (>60 ml/min/1.73 sqM); Phosphorus 3.4 mg/dL (2.5-4.5); Potassium 5.2 mmol/L (3.5-5.1); Sodium 143 mmol/L (137-145)
[2023-02-01 10:38] LABS: Carbon Dioxide 7 mmol/L (22-30)
--- NOTE | 2023-02-01 11:01 | P.CNPUL ---
History of Present Illness Consult date: 02/01/23 Requesting physician: Brown Valenzuela Reason for consult: other (critical care management) Chief complaint: Nausea, vomiting History of present illness: The patient is seen today 02/01/2023 in consultation in the emergency department. He has had repeated and ongoing issues with diabetic ketoacidosis due to noncompliance with his insulin at home. He was brought in again early this morning after developing significant nausea and vomiting. White count 32.2. Hemoglobin 13.1. Platelets 435. initial sodium 137. Potassium 6.6. Bicarb less than 5. Anion gap immeasurable. BUN 27. Creatinine 1.71. Glucose 707 2. AST 28. ALT 28. Albumin 5.5. Drug screen negative. Acetone positive. Urinalysis with 4+ glucose. He was initiated on the DKA protocol. Insulin drip at 6.4 units per hour. Normal saline 200 ML's per hour. Most recent labs reveal a sodium of 143. Potassium 5.2. Chloride 110. Bicarb 7. Anion gap 26. BUN 26. Creatinine 1.15. Glucose 250. he is seen today in consultation in the intensive care unit. He is not very cooperative. Not wanting to answer any que stions. He is stable and on room air. He is afebrile. Remains tachycardic. Blood pressure stable. Respiratory rate improved. Review of Systems REVIEW OF SYSTEMS: CONSTITUTIONAL: Denies any recent significant weight loss or weight gain. EYES: Denies change in vision. EARS, NOSE, MOUTH, THROAT: Denies headaches, denies sore throat. CARDIOVASCULAR: Denies chest pain, palpitations or syncopal episodes. RESPIRATORY: Denies shortness of breath, cough, congestion or hemoptysis. GASTROINTESTINAL: Positive for nausea, vomiting, abdominal pain GENITOURINARY: Denies hematuria, denies infections. MUSKULOSKELETAL: Denies pain, denies swelling. INTEGUMENTARY: Denies rash, denies eczema. NEUROLOGICAL: Denies recent memory loss, no recent seizure activity. PSYCHIATRIC: Denies anxiety, denies depression. HEMATOLOGIC/LYMPHATIC: Denies anemia, denies enlarged lymph nodes. Past Medical History Past Medical History: Asthma, Diabetes Mellitus, Neurologic Disorder, Skin Disorder Additional Past Medical History / Comment(s): IDDM type I, neuropathy bilateral feet, DKA, eczema. History of Any Multi-Drug Resistant Organisms: None Reported Past Surgical History: Adenoidectomy Additional Past Surgical History / Comment(s): 2002 Recent EGD- gastritis Past Anesthesia/Blood Transfusion Reactions: No Reported Reaction Past Psychological History: Anxiety, Depression Smoking Status: Former smoker Past Alcohol Use History: None Reported Past Drug Use History: None Reported - Past Family History Mother Family Medical History: CVA/TIA Additional Family Medical History / Comment(s): TIA Father Family Medical History: Hyperlipidemia, Hypertension Additional Family Medical History / Comment(s): . Medications and Allergies Home Medications Medication Instructions Recorded Confirmed Type Gabapentin 600 mg PO TID PRN 10/14/22 01/28/23 History Famotidine [Pepcid] 20 mg PO BID 12/31/22 01/28/23 History INSULIN LISPRO (HumaLOG) [humaLOG] 7 units SQ AC-TID 12/31/22 01/28/23 History Insulin Glargine [Lantus Vial] 30 unit SQ DAILY 12/31/22 01/28/23 History Mirtazapine 7.5 mg PO HS 12/31/22 01/28/23 History Losartan [Cozaar] 25 mg PO DAILY #10 tab 01/06/23 01/28/23 Rx Allergies Allergy/AdvReac Type Severity Reaction Status Date / Time No Known Allergies Allergy Verified 02/01/23 03:23 Physical Exam Vitals: Vital Signs Temp Pulse Resp BP Pulse Ox 02/01/23 10:00 124 H 15 104/63 97 02/01/23 09:00 135 H 24 120/82 97 02/01/23 08:00 97.6 F 141 H 24 120/82 98 02/01/23 06:45 125 H 42 H 115/69 99 02/01/23 06:30 130 H 24 112/63 99 02/01/23 06:15 130 H 24 122/74 99 02/01/23 06:00 133 H 24 108/60 99 02/01/23 05:45 133 H 24 115/61 99 02/01/23 05:30 133 H 24 97/50 99 02/01/23 05:15 133 H 24 119/64 99 02/01/23 05:00 133 H 24 120/72 99 02/01/23 04:45 126 H 24 100/52 99 02/01/23 03:19 97.6 F 133 H 24 112/58 100 Intake and Output 01/31/23 02/01/23 02/01/23 22:59 06:59 14:59 Intake Total 600 Output Total 525 Balance 75 Intake: IV 600 0.9 600 Output: Urine 525 Other: # Voids 0 Weight 63.503 kg 63.503 kg GENERAL EXAM: Alert, 27-year-old male patient, on room air, comfortable in no apparent distress. HEAD: Normocephalic. EYES: Normal reaction of pupils, equal size. NOSE: Clear with pink turbinates. THROAT: No erythema or exudates. NECK: No masses, no JVD. CHEST: No chest wall deformity. LUNGS: Equal air entry with no crackles, wheeze, rhonchi or dullness. CVS: S1 and S2 normal with no audible murmur, regular rhythm. ABDOMEN: No hepatosplenomegaly, normal bowel sounds, no guarding or rigidity. SPINE: No scoliosis or deformity SKIN: No rashes CENTRAL NERVOUS SYSTEM: No focal deficits, tone is normal in all 4 extremities. EXTREMITIES: There is no peripheral edema. No clubbing, no cyanosis. Peripheral pulses are intact. Results - Laboratory Findings CBC and BMP: 02/01/23 03:34 02/01/23 09:52 Abnormal lab findings: Abnormal Labs 02/01/23 02/01/23 02/01/23 03:31 03:34 03:34 WBC 32.2 H MCHC 29.6 L Neutrophils # (Manual) 27.60 H Monocytes # (Manual) 1.29 H Metamyelocytes # (Man) 0.32 H Myelocytes # (Manual) 0.32 H VBG pH VBG pCO2 VBG HCO3 Potassium 6.6 H* Chloride 94 L Carbon Dioxide <5 L* BUN 27 H Creatinine 1.71 H Glucose 772 H* POC Glucose (mg/dL) >600 H Alkaline Phosphatase 147 H Total Protein 8.6 H Albumin 5.5 H Urine Glucose (UA) Urine Ketones 02/01/23 02/01/23 02/01/23 04:29 05:01 05:49 WBC MCHC Neutrophils # (Manual) Monocytes # (Manual) Metamyelocytes # (Man) Myelocytes # (Manual) VBG pH 6.94 L* VBG pCO2 14 L* VBG HCO3 3 L* Potassium Chloride Carbon Dioxide BUN Creatinine Glucose POC Glucose (mg/dL) 581 H Alkaline Phosphatase Total Protein Albumin Urine Glucose (UA) 4+ H Urine Ketones 4+ H 02/01/23 02/01/23 02/01/23 06:51 08:05 08:58 WBC MCHC Neutrophils # (Manual) Monocytes # (Manual) Metamyelocytes # (Man) Myelocytes # (Manual) VBG pH VBG pCO2 VBG HCO3 Potassium Chloride Carbon Dioxide BUN Creatinine Glucose POC Glucose (mg/dL) 466 H 397 H 317 H Alkaline Phosphatase Total Protein Albumin Urine Glucose (UA) Urine Ketones 02/01/23 02/01/23 09:52 10:07 WBC MCHC Neutrophils # (Manual) Monocytes # (Manual) Metamyelocytes # (Man) Myelocytes # (Manual) VBG pH VBG pCO2 VBG HCO3 Potassium 5.2 H Chloride 110 H Carbon Dioxide 7 L* BUN 26 H Creatinine Glucose 272 H POC Glucose (mg/dL) 250 H Alkaline Phosphatase Total Protein Albumin Urine Glucose (UA) Urine Ketones Assessment and Plan Assessment: Acute diabetic ketoacidosis, secondary to medication noncompliance. Patient has had numerous episodes of DKA, and he recently left AGAINST MEDICAL ADVICE on 01/30/2023 Severe anion gap metabolic acidosis, secondary to above Acute kidney injury secondary to dehydration Type 1 diabetes mellitus, with poor compliance. Acute leukocytosis, likely reactive to DKA Diabetic neuropathy History of major depression Chronic marijuana use Chronic ongoing nicotine dependence plan: The patient was seen and evaluated Labs and medications reviewed reviewed Continue with DKA protocol Continue to monitor electrolytes Could be transferred out of the intensive care unit once stabilized We will continue to follow and make further recommendations based on his clinical status I have personally seen and examined the patient, performed the documentation and the assessment and plan as written. Number of minutes spent on the visit: 20.
[2023-02-01 11:06] LABS: Glucose,Whole Blood 200 mg/dL (70-110)
[2023-02-01 12:29] LABS: Glucose,Whole Blood 140 mg/dL (70-110)
[2023-02-01 13:15] LABS: Glucose,Whole Blood 109 mg/dL (70-110)
[2023-02-01 13:31] LABS: African American GFR (CKD) >90 (>60 ml/min/1.73 sqM); Anion Gap 19 mmol/L; Blood Urea Nitrogen 25 mg/dL (9-20); Carbon Dioxide 12 mmol/L (22-30); Chloride 110 mmol/L (98-107); Glucose 143 mg/dL (74-99); Non-African American GFR(CKD) >90 (>60 ml/min/1.73 sqM); Potassium 4.4 mmol/L (3.5-5.1); Sodium 141 mmol/L (137-145)
[2023-02-01] MEDS: D5-0.45% NACL WITH KCL 20MEQ/L 1,000 ML IV SCH ×2 (13:33→19:55)
[2023-02-01 14:26] LABS: Glucose,Whole Blood 158 mg/dL (70-110)
[2023-02-01 15:30] LABS: Glucose,Whole Blood 202 mg/dL (70-110)
[2023-02-01] MEDS: INSULIN DETEMIR (LEVEMIR) 100 UNIT/ML SYR SQ SCH (15:30)
[2023-02-01 16:17] LABS: Glucose,Whole Blood 208 mg/dL (70-110)
[2023-02-01] MEDS ORDERED: METOCLOPRAMIDE 5 MG/ML 2 ML VIAL IVP PRN (16:18)
[2023-02-01] MEDS: INSULIN ASPART (NovoLOG) 100 UNIT/ML VIAL SQ SCH (16:46)
[2023-02-01 17:14] LABS: Glucose,Whole Blood 230 mg/dL (70-110)
[2023-02-01 17:20] LABS: African American GFR (CKD) >90 (>60 ml/min/1.73 sqM); Anion Gap 16 mmol/L; Blood Urea Nitrogen 22 mg/dL (9-20); Calcium 8.8 mg/dL (8.4-10.2); Carbon Dioxide 14 mmol/L (22-30); Chloride 106 mmol/L (98-107); Glucose 211 mg/dL (74-99); Magnesium 1.9 mg/dL (1.6-2.3); Non-African American GFR(CKD) >90 (>60 ml/min/1.73 sqM); Phosphorus 3.1 mg/dL (2.5-4.5); Potassium 4.6 mmol/L (3.5-5.1); Sodium 136 mmol/L (137-145)
[2023-02-01 18:16] LABS: Glucose,Whole Blood 259 mg/dL (70-110)
[2023-02-01 18:55] LABS: Glucose,Whole Blood 246 mg/dL (70-110)
[2023-02-01 20:00] LABS: Glucose,Whole Blood 225 mg/dL (70-110)
[2023-02-01 21:01] LABS: Glucose,Whole Blood 209 mg/dL (70-110)
[2023-02-01 21:43] LABS: African American GFR (CKD) >90 (>60 ml/min/1.73 sqM); Anion Gap 11 mmol/L; Blood Urea Nitrogen 21 mg/dL (9-20); Calcium 8.5 mg/dL (8.4-10.2); Carbon Dioxide 18 mmol/L (22-30); Chloride 105 mmol/L (98-107); Glucose 216 mg/dL (74-99); Magnesium 1.8 mg/dL (1.6-2.3); Non-African American GFR(CKD) >90 (>60 ml/min/1.73 sqM); Phosphorus 2.7 mg/dL (2.5-4.5); Potassium 4.3 mmol/L (3.5-5.1); Sodium 134 mmol/L (137-145)
[2023-02-01 22:05] LABS: Glucose,Whole Blood 218 mg/dL (70-110)
[2023-02-02 00:03] LABS: Glucose,Whole Blood 193 mg/dL (70-110)
[2023-02-02] MEDS: INSULIN REGULAR 100 UNIT in SODIUM CHLORIDE 0.9% 100 ML IV SCH (01:57)
[2023-02-02] MEDS: D5-0.45% NACL WITH KCL 20MEQ/L 1,000 ML IV SCH (01:58)
[2023-02-02 02:05] LABS: African American GFR (CKD) >90 (>60 ml/min/1.73 sqM); Anion Gap 9 mmol/L; Blood Urea Nitrogen 17 mg/dL (9-20); Calcium 8.5 mg/dL (8.4-10.2); Carbon Dioxide 21 mmol/L (22-30); Chloride 102 mmol/L (98-107); Glucose 180 mg/dL (74-99); Magnesium 1.9 mg/dL (1.6-2.3); Non-African American GFR(CKD) >90 (>60 ml/min/1.73 sqM); Phosphorus 2.6 mg/dL (2.5-4.5); Sodium 132 mmol/L (137-145)
[2023-02-02 02:13] LABS: Glucose,Whole Blood 172 mg/dL (70-110)
[2023-02-02] MEDS ORDERED: D5-0.45% NACL WITH KCL 20MEQ/L 1,000 ML IV SCH (02:15)
[2023-02-02 04:28] LABS: Glucose,Whole Blood 231 mg/dL (70-110)
[2023-02-02 05:21] LABS: Basophils % (A) 0 %; Eosinophils # (A) 0.2 k/uL (0-0.7); Eosinophils % (A) 1 %; HCT 32.8 % (39.0-53.0); HGB 10.9 gm/dL (13.0-17.5); Lymphocytes # (A) 2.3 k/uL (1.0-4.8); Lymphocytes % (A) 13 %; MCH 30.3 pg (25.0-35.0); MCHC 33.2 g/dL (31.0-37.0); Mean Platelet Volume 7.3; Monocytes # (A) 0.8 k/uL (0-1.0); Monocytes % (A) 5 %; Neutrophils % (A) 80 %; Platelet Count 315 k/uL (150-450); RBC 3.59 m/uL (4.30-5.90); RDW 15.2 % (11.5-15.5); WBC 17.6 k/uL (3.8-10.6)
[2023-02-02 05:28] LABS: MCV 91.2 fL (80.0-100.0)
[2023-02-02 05:41] LABS: African American GFR (CKD) >90 (>60 ml/min/1.73 sqM); Anion Gap 11 mmol/L; Blood Urea Nitrogen 15 mg/dL (9-20); Calcium 8.5 mg/dL (8.4-10.2); Carbon Dioxide 20 mmol/L (22-30); Chloride 103 mmol/L (98-107); Glucose 222 mg/dL (74-99); Magnesium 1.9 mg/dL (1.6-2.3); Non-African American GFR(CKD) >90 (>60 ml/min/1.73 sqM); Phosphorus 2.7 mg/dL (2.5-4.5); Potassium 4.7 mmol/L (3.5-5.1); Sodium 134 mmol/L (137-145)
[2023-02-02 05:51] LABS: Glucose,Whole Blood 305 mg/dL (70-110)
[2023-02-02] MEDS: INSULIN ASPART (NovoLOG) 100 UNIT/ML VIAL SQ SCH ×2 (05:57→12:27)
[2023-02-02] MEDS: INSULIN DETEMIR (LEVEMIR) 100 UNIT/ML SYR SQ SCH (06:27)
[2023-02-02 07:50] LABS: Glucose,Whole Blood 263 mg/dL (70-110)
[2023-02-02 08:11] VITALS: RESP 14; TEMP 98.2
--- NOTE | 2023-02-02 10:14 | P.PN ---
Subjective Progress Note Date: 02/02/23 The patient is seen today 02/01/2023 in consultation in the emergency department. He has had repeated and ongoing issues with diabetic ketoacidosis due to noncompliance with his insulin at home. He was brought in again early this morning after developing significant nausea and vomiting. White count 32.2. Hemoglobin 13.1. Platelets 435. initial sodium 137. Potassium 6.6. Bicarb less than 5. Anion gap immeasurable. BUN 27. Creatinine 1.71. Glucose 707 2. AST 28. ALT 28. Albumin 5.5. Drug screen negative. Acetone positive. Urinalysis with 4+ glucose. He was initiated on the DKA protocol. Insulin drip at 6.4 units per hour. Normal saline 200 ML's per hour. Most recent labs reveal a sodium of 143. Potassium 5.2. Chloride 110. Bicarb 7. Anion gap 26. BUN 26. Creatinine 1.15. Glucose 250. he is seen today in consultation in the intensive care unit. He is not very cooperative. Not wanting to answer any questions. He is stable and on room air. He is afebrile. Remains tachycardic. Blood pressure stable. Respiratory rate improved. The patient is seen today 02/02/2023 in follow-up in the intensive care unit. He is awake and alert in no acute distress. No significant events overnight. He is maintaining O2 saturations in the 90s on room air. Tolerating a diet. He modynamically stable. White count 17.6. Hemoglobin 10.8. Platelets 3:15. Sodium 134. Potassium 4.7. Bicarb 20. Anion gap 11. BUN 15. Creatinine 0.71. Glucose 222. He's been transitioned to Levemir and NovoLog sliding scale. Objective - Vital Signs Vital signs: Vital Signs Temp 98.2 F 02/02/23 08:00 Pulse 115 H 02/02/23 08:00 Resp 14 02/02/23 08:00 BP 115/78 02/02/23 08:00 Pulse Ox 99 02/02/23 08:00 FiO2 Intake & Output 02/01/23 02/02/23 02/02/23 18:59 06:59 18:59 Intake Total 2009.968 1709.826 Output Total 1634 975 350 Balance 375.968 734.826 -350 Weight 63.503 kg 70.4 kg Intake: IV 1950 1150 0.9 1200 D5-0.45% NaCl with KCl 750 1050 20Meq/l 1,000 ml @ 150 mls/hr IV .Q6H40M [facility] Rx# :[id number] D5-0.45% NaCl with KCl 100 20Meq/l 1,000 ml @ 50 mls /hr IV .Q20H [facility] Rx#: [id number] Intake, IV Titration 59.968 19.826 Amount Insulin Regular 100 unit 59.968 19.826 In Sodium Chloride 0.9% 100 ml @ 0.1 UNITS/KG/HR 6.414 mls/hr IV .[id number] [facility] Rx#:[id number] Oral 540 Output: Urine 1134 975 350 Emesis 500 Other: # Voids 0 1 - Exam GENERAL EXAM: Alert, oriented, pleasant 27-year-old male patient, on room air, comfortable in no apparent distress. HEAD: Normocephalic. EYES: Normal reaction of pupils, equal size. NOSE: Clear with pink turbinates. THROAT: No erythema or exudates. NECK: No masses, no JVD. CHEST: No chest wall deformity. LUNGS: Equal air entry with no crackles, wheeze, rhonchi or dullness. CVS: S1 and S2 normal with no audible murmur, regular rhythm. ABDOMEN: No hepatosplenomegaly, normal bowel sounds, no guarding or rigidity. SPINE: No scoliosis or deformity SKIN: No rashes CENTRAL NERVOUS SYSTEM: No focal deficits, tone is normal in all 4 extremities. EXTREMITIES: There is no peripheral edema. No clubbing, no cyanosis. Peripheral pulses are intact. - Labs CBC & Chem 7: 02/02/23 04:17 02/02/23 04:17 Labs: Abnormal Lab Results - Last 24 Hours (Table) 02/01/23 02/01/23 02/01/23 Range/Units 09:52 11:05 12:06 WBC (3.8-10.6) k/uL RBC (4.30-5.90) m/uL Hgb (13.0-17.5) gm/dL Hct (39.0-53.0) % Neutrophils # (1.3-7.7) k/uL Sodium (137-145) mmol/L Potassium 5.2 H (3.5-5.1) mmol/L Chloride 110 H 110 H (98-107) mmol/L Carbon Dioxide 7 L* 12 L (22-30) mmol/L BUN 26 H 25 H (9-20) mg/dL Glucose 272 H 143 H (74-99) mg/dL POC Glucose (mg/dL) 200 H (70-110) mg/dL 02/01/23 02/01/23 02/01/23 Range/Units 12:28 14:24 15:27 WBC (3.8-10.6) k/uL RBC (4.30-5.90) m/uL Hgb (13.0-17.5) gm/dL Hct (39.0-53.0) % Neutrophils # (1.3-7.7) k/uL Sodium (137-145) mmol/L Potassium (3.5-5.1) mmol/L Chloride (98-107) mmol/L Carbon Dioxide (22-30) mmol/L BUN (9-20) mg/dL Glucose (74-99) mg/dL POC Glucose (mg/dL) 140 H 158 H 202 H (70-110) mg/dL 02/01/23 02/01/23 02/01/23 Range/Units 16:15 16:31 17:12 WBC (3.8-10.6) k/uL RBC (4.30-5.90) m/uL Hgb (13.0-17.5) gm/dL Hct (39.0-53.0) % Neutrophils # (1.3-7.7) k/uL Sodium 136 L (137-145) mmol/L Potassium (3.5-5.1) mmol/L Chloride (98-107) mmol/L Carbon Dioxide 14 L (22-30) mmol/L BUN 22 H (9-20) mg/dL Glucose 211 H (74-99) mg/dL POC Glucose (mg/dL) 208 H 230 H (70-110) mg/dL 02/01/23 02/01/23 02/01/23 Range/Units 18:14 18:54 19:58 WBC (3.8-10.6) k/uL RBC (4.30-5.90) m/uL Hgb (13.0-17.5) gm/dL Hct (39.0-53.0) % Neutrophils # (1.3-7.7) k/uL Sodium (137-145) mmol/L Potassium (3.5-5.1) mmol/L Chloride (98-107) mmol/L Carbon Dioxide (22-30) mmol/L BUN (9-20) mg/dL Glucose (74-99) mg/dL POC Glucose (mg/dL) 259 H 246 H 225 H (70-110) mg/dL 02/01/23 02/01/23 02/01/23 Range/Units 20:31 21:00 22:03 WBC (3.8-10.6) k/uL RBC (4.30-5.90) m/uL Hgb (13.0-17.5) gm/dL Hct (39.0-53.0) % Neutrophils # (1.3-7.7) k/uL Sodium 134 L (137-145) mmol/L Potassium (3.5-5.1) mmol/L Chloride (98-107) mmol/L Carbon Dioxide 18 L (22-30) mmol/L BUN 21 H (9-20) mg/dL Glucose 216 H (74-99) mg/dL POC Glucose (mg/dL) 209 H 218 H (70-110) mg/dL 02/02/23 02/02/23 02/02/23 Range/Units 00:01 00:41 02:11 WBC (3.8-10.6) k/uL RBC (4.30-5.90) m/uL Hgb (13.0-17.5) gm/dL Hct (39.0-53.0) % Neutrophils # (1.3-7.7) k/uL Sodium 132 L (137-145) mmol/L Potassium (3.5-5.1) mmol/L Chloride (98-107) mmol/L Carbon Dioxide 21 L (22-30) mmol/L BUN (9-20) mg/dL Glucose 180 H (74-99) mg/dL POC Glucose (mg/dL) 193 H 172 H (70-110) mg/dL 02/02/23 02/02/23 02/02/23 Range/Units 04:17 04:17 04:26 WBC 17.6 H (3.8-10.6) k/uL RBC 3.59 L (4.30-5.90) m/uL Hgb 10.9 L (13.0-17.5) gm/dL Hct 32.8 L (39.0-53.0) % Neutrophils # 14.0 H (1.3-7.7) k/uL Sodium 134 L (137-145) mmol/L Potassium (3.5-5.1) mmol/L Chloride (98-107) mmol/L Carbon Dioxide 20 L (22-30) mmol/L BUN (9-20) mg/dL Glucose 222 H (74-99) mg/dL POC Glucose (mg/dL) 231 H (70-110) mg/dL 02/02/23 02/02/23 Range/Units 05:50 07:49 WBC (3.8-10.6) k/uL RBC (4.30-5.90) m/uL Hgb (13.0-17.5) gm/dL Hct (39.0-53.0) % Neutrophils # (1.3-7.7) k/uL Sodium (137-145) mmol/L Potassium (3.5-5.1) mmol/L Chloride (98-107) mmol/L Carbon Dioxide (22-30) mmol/L BUN (9-20) mg/dL Glucose (74-99) mg/dL POC Glucose (mg/dL) 305 H 263 H (70-110) mg/dL Assessment and Plan Assessment: Acute diabetic ketoacidosis, secondary to medication noncompliance. Patient has had numerous episodes of DKA, and he recently left AGAINST MEDICAL ADVICE on 01/30/2023 Severe anion gap metabolic acidosis, secondary to above Acute kidney injury secondary to dehydration Type 1 diabetes mellitus, with poor compliance. Acute leukocytosis, likely reactive to DKA Diabetic neuropathy History of major depression Chronic marijuana use Chronic ongoing nicotine dependence Plan: The patient was seen and evaluated Labs and medications reviewed reviewed Transition to Levemir and NovoLog sliding scale Transfer out of the ICU to the regular medical floor I have personally seen and examined the patient, performed the documentation and the assessment and plan as written. Number of minutes spent on the visit: 10.
[2023-02-02 11:38] LABS: Glucose,Whole Blood 155 mg/dL (70-110)
[2023-02-02 12:19] LABS: African American GFR (CKD) >90 (>60 ml/min/1.73 sqM); Anion Gap 10 mmol/L; Blood Urea Nitrogen 11 mg/dL (9-20); Calcium 8.9 mg/dL (8.4-10.2); Carbon Dioxide 23 mmol/L (22-30); Chloride 98 mmol/L (98-107); Glucose 138 mg/dL (74-99); Non-African American GFR(CKD) >90 (>60 ml/min/1.73 sqM); Phosphorus 2.6 mg/dL (2.5-4.5); Sodium 131 mmol/L (137-145)
[2023-02-02 15:14] VITALS: BP 126/84; PULSE 113
--- NOTE | 2023-02-05 05:42 | HP ---
HISTORY AND PHYSICAL CHIEF COMPLAINT: DKA. HISTORY OF PRESENT ILLNESS: This is another admission for this 27-year-old white male who is in and out of the hospital weekly or even more often now with DKA because he will not take his insulin. REVIEW OF SYSTEMS: Not obtainable at this time because he is quite lethargic. PAST MEDICAL HISTORY, FAMILY HISTORY AND PERSONAL AND SOCIAL HISTORIES: All otherwise unremarkable or unchanged. PHYSICAL EXAMINATION: VITAL SIGNS: Blood pressure is 110/55 with a pulse of 136, respirations of 35, and he is afebrile. GENERAL: He appeared to be slender and dehydrated. He is lethargic. He is dehydrated. HEENT: Head, ears, eyes, nose, mouth and throat are normal. CHEST: Clear. CARDIAC: Demonstrates sinus tachycardia. ABDOMEN: Flat, soft, nontender. EXTREMITIES: Normal. NEUROLOGICAL: Intact. IMPRESSION: 1. DKA. 2. Type 1 diabetes mellitus. 3. Depression. PLAN: Admit to ICU for DKA management. MMODL / IJN: [id number] /
--- NOTE | 2023-02-05 05:58 | DS ---
DISCHARGE SUMMARY CHIEF COMPLAINT: DKA. HISTORY OF PRESENT ILLNESS AND PHYSICAL EXAMINATION: Details of this man's history and physical can be found in the initial workup. LABORATORY STUDIES: While he was in the hospital, he had laboratory studies as usual and the details are in his lab section. COURSE IN THE HOSPITAL: He was placed in ICU on DKA protocol. Blood sugars came down. He was doing well, but he was not vomiting and his gap was closed. It is felt that he could go home on his usual activity, diet, medication. He will be encouraged to follow up in the office. FINAL DIAGNOSES: 1. Diabetic ketoacidosis. 2. Depression. 3. Type 1 diabetes mellitus. 4. Gastroparesis. 5. Peripheral neuropathy. 6. Depression. OPERATIONS: None. CONSULTATIONS: Intensive Medicine. He is improved. MMODL / IJN: [id number] /
== END 2023-02-02 15:20 | disposition home or self-care (01) | DRG 420 ==
LOC: EC 03:15 → 2SICU 05:03
PROVIDERS: ADMIT Family Medicine; ATTEND Family Medicine
DX: E10.10 Type 1 diabetes mellitus with ketoacidosis without coma (principal); E10.42 Type 1 diabetes mellitus with diabetic polyneuropathy; E86.0 Dehydration; E87.5 Hyperkalemia; F41.9 Anxiety disorder, unspecified; N17.9 Acute kidney failure, unspecified; F32.A Depression, unspecified; F12.10 Cannabis abuse, uncomplicated; Z79.899 Other long term (current) drug therapy; Z82.49 Family history of ischemic heart disease and other diseases of the circulatory system; Z91.148 Patient's other noncompliance with medication regimen for other reason; Z66 Do not resuscitate; Z79.4 Long term (current) use of insulin; Z91.199 Patient's noncompliance with other medical treatment and regimen due to unspecified reason; Z87.891 Personal history of nicotine dependence
CPT/HCPCS: 36415; 80048; 80051; 80053; 80306; 81003; 82009; 82565; 82803; 82947; 83735; 84100; 84520; 85025; 93005; 96361; 96374; 96375; 99285

== ENCOUNTER 2023-02-06 18:08 | Inpatient (IN) | payer OTHER ==
[2023-02-06 18:43] LABS: Glucose,Whole Blood 475 mg/dL (70-110)
[2023-02-06] MEDS ORDERED: SODIUM CHLORIDE 0.9% 2,000 ML IV ONE (19:13)
--- NOTE | 2023-02-06 19:21 | ED ---
General Adult HPI - General Chief complaint: Recheck/Abnormal Lab/Rx Stated complaint: stomach vomiting Time Seen by Provider: 02/06/23 19:04 Source: patient, RN notes reviewed Mode of arrival: wheelchair - History of Present Illness Initial comments: 27 year-old male presents to the emergency department for chief complaint of vomiting and "diabetes issues". He reports that he has been giving himself insulin with the last being yesterday evening. He reports that he did not check his sugar today. He admits to vomiting. Denies fever. - Related Data Home Medications Medication Instructions Recorded Confirmed Gabapentin 600 mg PO TID PRN 10/14/22 02/06/23 Famotidine [Pepcid] 20 mg PO BID 12/31/22 02/06/23 INSULIN LISPRO (HumaLOG) [humaLOG] 7 units SQ AC-TID 12/31/22 02/06/23 Insulin Glargine [Lantus Vial] 30 unit SQ DAILY 12/31/22 02/06/23 Mirtazapine 7.5 mg PO HS 12/31/22 02/06/23 Allergies Allergy/AdvReac Type Severity Reaction Status Date / Time No Known Allergies Allergy Verified 02/06/23 21:40 Review of Systems ROS Statement: Those systems with pertinent positive or pertinent negative responses have been documented in the HPI. ROS Other: All systems not noted in ROS Statement are negative. Past Medical History Past Medical History: Asthma, Diabetes Mellitus, Neurologic Disorder, Skin Disorder Additional Past Medical History / Comment(s): IDDM type I, neuropathy bilateral feet, DKA, eczema. History of Any Multi-Drug Resistant Organisms: None Reported Past Surgical History: Adenoidectomy Additional Past Surgical History / Comment(s): 2003 Recent EGD- gastritis Past Anesthesia/Blood Transfusion Reactions: No Reported Reaction Past Psychological History: Anxiety, Depression Smoking Status: Never smoker, Vaper Past Alcohol Use History: None Reported Past Drug Use History: Marijuana - Past Family History Mother Family Medical History: CVA/TIA Additional Family Medical History / Comment(s): TIA Father Family Medical History: Hyperlipidemia, Hypertension Additional Family Medical History / Comment(s): . General Exam Limitations: no limitations General appearance: alert, in no apparent distress Head exam: Present: atraumatic, normocephalic, normal inspection Eye exam: Present: normal appearance, PERRL, EOMI. Absent: scleral icterus, conjunctival injection, periorbital swelling ENT exam: Present: mucous membranes dry Neck exam: Present: normal inspection. Absent: tenderness, meningismus, lymphadenopathy Respiratory exam: Present: normal lung sounds bilaterally. Absent: respiratory distress, wheezes, rales, rhonchi, stridor Cardiovascular Exam: Present: normal rhythm, tachycardia GI/Abdominal exam: Present: soft, normal bowel sounds. Absent: distended, tenderness, guarding, rebound, rigid Extremities exam: Present: normal inspection, full ROM, normal capillary refill. Absent: tenderness, pedal edema, joint swelling, calf tenderness Back exam: Present: normal inspection Neurological exam: Present: alert Psychiatric exam: Present: normal affect, normal mood Skin exam: Present: warm, dry, intact, normal color. Absent: rash Course Vital Signs 02/06/23 02/06/23 02/06/23 18:39 19:02 20:00 Temperature 98.2 F Pulse Rate 137 H 130 H 115 H Respiratory 18 30 H 18 Rate Blood Pressure 144/91 133/87 124/83 O2 Sat by Pulse 100 100 100 Oximetry 02/06/23 02/06/23 02/06/23 20:30 21:00 21:30 Temperature Pulse Rate 105 H 124 H 126 H Respiratory 20 17 24 Rate Blood Pressure 114/66 106/54 133/80 O2 Sat by Pulse 100 100 100 Oximetry 02/06/23 22:00 Temperature Pulse Rate 113 H Respiratory 16 Rate Blood Pressure 116/61 O2 Sat by Pulse 100 Oximetry Medical Decision Making - Medical Decision Making Was pt. sent in by a medical professional or institution (, PA, BEHAVIORAL HEALTH THERAPIST, urgent care, hospital, or intermediate...) When possible be specific @ -No Did you speak to anyone other than the patient for history (EMS, parent, family, police, friend...)? What history was obtained from this source @ -No Did you review nursing and triage notes (agree or disagree)? Why? @ -I reviewed and agree with nursing and triage notes Were old charts reviewed (outside hosp., previous admission, EMS record, old EKG, old radiological studies, urgent care reports/EKG's, intermediate records)? Report findings @ -No old charts were reviewed Differential Diagnosis (chest pain, altered mental status, abdominal pain women, abdominal pain men, vaginal bleeding, weakness, fever, dyspnea, syncope, headache, dizziness, GI bleed, back pain, seizure, CVA, palpatations, mental health, musculoskeletal)? @ -Differential Abdominal Pain Men: Appendicitis, cholecystitis, diverticulosis, ischemic bowel, pancreatitis, hepatitis, UTI, gastroenteritis, AAA, incarcerated hernia, bowel obstruction, constipation, inflammatory bowel, hepatitis, peptic ulcer disease, splenic infarction, perforated viscus, testicular torsion, this is not meant to be an all-inclusive list EKG interpreted by me (3pts min.). @ -EKG at 1939 shows sinus tachycardia, rate 121, DC 153, QRS 98 X-rays interpreted by me (1pt min.). @ -None done CT interpreted by me (1pt min.). @ -None done U/S interpreted by me (1pt. min.). @ -None done What testing was considered but not performed or refused? (CT, X-rays, U/S, labs)? Why? @ -None What meds were considered but not given or refused? Why? @ -None Did you discuss the management of the patient with other professionals (professionals i.e. , PA, BEHAVIORAL HEALTH THERAPIST, lab, RT, psych nurse, social research assistant, production consultant, teacher, chief executive officer, egg caser)? Give summary @ -Management discussed with Dr. Valenzuela who is accepting of admission Was smoking cessation discussed for >3mins.? @ -No Was critical care preformed (if so, how long)? @ -yes 35 min Were there social determinants of health that impacted care today? How? (Homelessness, low income, unemployed, alcoholism, drug addiction, transportation, low edu. Level, literacy, decrease access to med. care, penitentiary, rehab)? @ -No Was there de-escalation of care discussed even if they declined (Discuss DNR or withdrawal of care, Hospice)? DNR status @ -No What co-morbidities impacted this encounter? (DM, HTN, Smoking, COPD, CAD, Cancer, CVA, ARF, Chemo, Hep., AIDS, mental health diagnosis, sleep apnea, morbid obesity)? @ -DM Was patient admitted / discharged? Hospital course, mention meds given and route, prescriptions, significant lab abnormalities, going to OR and other pertinent info. @ -Admitted. Patient presented to the emergency department with chief complaint of diabetes issues and vomiting. He states that this started this morning. He reports that he took insulin last night. Upon arrival, point of care blood glucose 475; CBC within normal limits; CMP shows sodium 132, potassium 5.2, CO2 8; glucose 538, lactic 2.3; VBG shows pH 7.36, pCO2 24, HCO3 13; acetone positive; UA shows 4+ glucose, 4+ ketones. Patient given 2L NS, started on insulin drip. Hourly POC glucose will be obtained. Patient will be admitted to step down for DKA. Case discussed with Dr. Valenzuela who is accepting of the admission. Case discussed with my attending, Dr. Gregorio. Undiagnosed new problem with uncertain prognosis? @ -No Drug Therapy requiring intensive monitoring for toxicity (Heparin, Nitro, Insulin, Cardizem)? @ -No Were any procedures done? @ -No Diagnosis/symptom? @ -DKA Acute, or Chronic, or Acute on Chronic? @ -acute Uncomplicated (without systemic symptoms) or Complicated (systemic symptoms)? @ -default Side effects of treatment? @ -No Exacerbation, Progression, or Severe Exacerbation? @ -No Poses a threat to life or bodily function? How? (Chest pain, [place], [place], pneumonia, PE, COPD, DKA, ARF, appy, cholecystitis, CVA, Diverticulitis, Homicidal, Suicidal, threat to staff... and all critical care pts) @ -DKA - Lab Data Result diagrams: 02/06/23 19:22 02/06/23 19:22 Lab Results 02/06/23 02/06/23 02/06/23 Range/Units 18:41 19:22 19:22 WBC 9.5 (3.8-10.6) k/uL RBC 4.53 (4.30-5.90) m/uL Hgb 13.5 (13.0-17.5) gm/dL Hct 43.0 (39.0-53.0) % MCV 94.9 (80.0-100.0) fL MCH 29.7 (25.0-35.0) pg MCHC 31.3 (31.0-37.0) g/dL RDW 14.8 (11.5-15.5) % Plt Count 396 (150-450) k/uL MPV 7.6 Neutrophils % 75 % Lymphocytes % 18 % Monocytes % 5 % Eosinophils % 1 % Basophils % 0 % Neutrophils # 7.1 (1.3-7.7) k/uL Lymphocytes # 1.7 (1.0-4.8) k/uL Monocytes # 0.5 (0-1.0) k/uL Eosinophils # 0.1 (0-0.7) k/uL Basophils # 0.0 (0-0.2) k/uL Hypochromasia Slight VBG pH (7.31-7.41) VBG pCO2 (37-51) mmHg VBG HCO3 (24-28) mmol/L Sodium 132 L (137-145) mmol/L Potassium 5.2 H (3.5-5.1) mmol/L Chloride 92 L (98-107) mmol/L Carbon Dioxide 8 L* (22-30) mmol/L Anion Gap 32 mmol/L BUN 17 (9-20) mg/dL Creatinine 0.82 (0.66-1.25) mg/dL Est GFR (CKD-EPI)AfAm >90 (>60 ml/min/1.73 sqM) Est GFR (CKD-EPI)NonAf >90 (>60 ml/min/1.73 sqM) Glucose 538 H* (74-99) mg/dL POC Glucose (mg/dL) 475 H (70-110) mg/dL POC Glu Circulation Supervisor ID Willing, Heide Lactic Ac Sepsis Rflx Plasma Lactic Acid Len (0.7-2.0) mmol/L Calcium 9.7 (8.4-10.2) mg/dL Phosphorus 3.3 (2.5-4.5) mg/dL Magnesium 2.0 (1.6-2.3) mg/dL Total Bilirubin 1.0 (0.2-1.3) mg/dL AST 27 (17-59) U/L ALT 28 (4-49) U/L Alkaline Phosphatase 119 (38-126) U/L Total Protein 7.5 (6.3-8.2) g/dL Albumin 4.7 (3.5-5.0) g/dL Acetone, Qual Positive (Negative) 02/06/23 02/06/23 02/06/23 Range/Units 19:22 19:30 20:07 WBC (3.8-10.6) k/uL RBC (4.30-5.90) m/uL Hgb (13.0-17.5) gm/dL Hct (39.0-53.0) % MCV (80.0-100.0) fL MCH (25.0-35.0) pg MCHC (31.0-37.0) g/dL RDW (11.5-15.5) % Plt Count (150-450) k/uL MPV Neutrophils % % Lymphocytes % % Monocytes % % Eosinophils % % Basophils % % Neutrophils # (1.3-7.7) k/uL Lymphocytes # (1.0-4.8) k/uL Monocytes # (0-1.0) k/uL Eosinophils # (0-0.7) k/uL Basophils # (0-0.2) k/uL Hypochromasia VBG pH 7.36 (7.31-7.41) VBG pCO2 24 L (37-51) mmHg VBG HCO3 13 L (24-28) mmol/L Sodium (137-145) mmol/L Potassium (3.5-5.1) mmol/L Chloride (98-107) mmol/L Carbon Dioxide (22-30) mmol/L Anion Gap mmol/L BUN (9-20) mg/dL Creatinine (0.66-1.25) mg/dL Est GFR (CKD-EPI)AfAm (>60 ml/min/1.73 sqM) Est GFR (CKD-EPI)NonAf (>60 ml/min/1.73 sqM) Glucose (74-99) mg/dL POC Glucose (mg/dL) (70-110) mg/dL POC Glu Circulation Supervisor ID Lactic Ac Sepsis Rflx Y Plasma Lactic Acid Len 2.3 H* (0.7-2.0) mmol/L Calcium (8.4-10.2) mg/dL Phosphorus (2.5-4.5) mg/dL Magnesium (1.6-2.3) mg/dL Total Bilirubin (0.2-1.3) mg/dL AST (17-59) U/L ALT (4-49) U/L Alkaline Phosphatase (38-126) U/L Total Protein (6.3-8.2) g/dL Albumin (3.5-5.0) g/dL Acetone, Qual (Negative) Critical Care Time Critical Care Time: Yes Total Critical Care Time: 35 Disposition Clinical Impression: DKA (diabetic ketoacidoses) Disposition: ADMITTED IP TO THIS [facility] Condition: Stable Is patient prescribed a controlled substance at d/c from ED?: No
[2023-02-06 19:38] LABS: Basophils % (A) 0 %; Eosinophils # (A) 0.1 k/uL (0-0.7); Eosinophils % (A) 1 %; HGB 13.5 gm/dL (13.0-17.5); Hypochromasia Slight; Lymphocytes # (A) 1.7 k/uL (1.0-4.8); Lymphocytes % (A) 18 %; MCH 29.7 pg (25.0-35.0); MCHC 31.3 g/dL (31.0-37.0); MCV 94.9 fL (80.0-100.0); Mean Platelet Volume 7.6; Monocytes # (A) 0.5 k/uL (0-1.0); Monocytes % (A) 5 %; Neutrophils # (A) 7.1 k/uL (1.3-7.7); Neutrophils % (A) 75 %; Platelet Count 396 k/uL (150-450); RBC 4.53 m/uL (4.30-5.90); RDW 14.8 % (11.5-15.5); WBC 9.5 k/uL (3.8-10.6)
[2023-02-06 19:58] LABS: ALT 28 U/L (4-49); AST 27 U/L (17-59); African American GFR (CKD) >90 (>60 ml/min/1.73 sqM); Albumin 4.7 g/dL (3.5-5.0); Alkaline Phosphatase 119 U/L (38-126); Anion Gap 32 mmol/L; Blood Urea Nitrogen 17 mg/dL (9-20); Calcium 9.7 mg/dL (8.4-10.2); Chloride 92 mmol/L (98-107); Non-African American GFR(CKD) >90 (>60 ml/min/1.73 sqM); Phosphorus 3.3 mg/dL (2.5-4.5); Potassium 5.2 mmol/L (3.5-5.1); Sodium 132 mmol/L (137-145); Total Protein 7.5 g/dL (6.3-8.2)
[2023-02-06 20:08] LABS: Carbon Dioxide 8 mmol/L (22-30); Glucose 538 mg/dL (74-99)
[2023-02-06 20:16] LABS: VBG PH 7.36 (7.31-7.41)
[2023-02-06] MEDS ORDERED: INSULIN REGULAR BOLUS (FROM DRIP BAG) IV ONE (20:39)
[2023-02-06] MEDS ORDERED: SODIUM CHLORIDE 0.9% 1,000 ML IV SCH (20:45)
[2023-02-06] MEDS ORDERED: INSULIN REGULAR 100 UNIT in SODIUM CHLORIDE 0.9% 100 ML IV SCH (20:45)
[2023-02-06 21:36] LABS: Appearance,Urine Clear (Clear); Bilirubin,Urine Negative (Negative); Blood,Urine Negative (Negative); Color,Urine Colorless; Glucose,Urine (UA) 4+ (Negative); Leukocyte Esterase,Urine Negative (Negative); Nitrite,Urine Negative (Negative); Protein,Urine Negative (Negative); Specific Gravity,Urine 1.023 (1.001-1.035); Urobilinogen,Urine <2.0 mg/dL (<2.0)
[2023-02-06 21:40] LABS: Ketones,Urine 4+ (Negative)
[2023-02-06 22:07] LABS: Glucose,Whole Blood 304 mg/dL (70-110)
[2023-02-06] MEDS ORDERED: METOCLOPRAMIDE 5 MG/ML 2 ML VIAL IVP PRN (22:33)
[2023-02-06 23:02] LABS: Glucose,Whole Blood 216 mg/dL (70-110)
[2023-02-06] MEDS: D5-0.45% NACL WITH KCL 20MEQ/L 1,000 ML IV SCH (23:18)
[2023-02-07] MEDS ORDERED: METOCLOPRAMIDE 5 MG/ML 2 ML VIAL IVP SCH
[2023-02-07 00:03] LABS: Glucose,Whole Blood 182 mg/dL (70-110)
[2023-02-07 00:03] LABS: African American GFR (CKD) >90 (>60 ml/min/1.73 sqM); Anion Gap 19 mmol/L; Blood Urea Nitrogen 15 mg/dL (9-20); Carbon Dioxide 14 mmol/L (22-30); Chloride 105 mmol/L (98-107); Glucose 206 mg/dL (74-99); Non-African American GFR(CKD) >90 (>60 ml/min/1.73 sqM); Phosphorus 2.6 mg/dL (2.5-4.5); Potassium 4.3 mmol/L (3.5-5.1); Sodium 138 mmol/L (137-145)
[2023-02-07 01:03] LABS: Glucose,Whole Blood 136 mg/dL (70-110)
[2023-02-07 02:00] LABS: Glucose,Whole Blood 104 mg/dL (70-110)
[2023-02-07 03:02] LABS: Glucose,Whole Blood 110 mg/dL (70-110)
[2023-02-07 04:02] LABS: Glucose,Whole Blood 116 mg/dL (70-110)
[2023-02-07 04:56] LABS: Glucose,Whole Blood 148 mg/dL (70-110)
[2023-02-07 05:28] LABS: African American GFR (CKD) >90 (>60 ml/min/1.73 sqM); Anion Gap 14 mmol/L; Blood Urea Nitrogen 15 mg/dL (9-20); Carbon Dioxide 19 mmol/L (22-30); Chloride 102 mmol/L (98-107); Glucose 142 mg/dL (74-99); Non-African American GFR(CKD) >90 (>60 ml/min/1.73 sqM); Phosphorus 3.2 mg/dL (2.5-4.5); Sodium 135 mmol/L (137-145)
[2023-02-07] MEDS ORDERED: INSULIN NPH 100 UNIT/ML 10 ML VIAL SQ ONE (05:45)
[2023-02-07 06:00] LABS: Glucose,Whole Blood 164 mg/dL (70-110)
[2023-02-07 07:00] LABS: Glucose,Whole Blood 210 mg/dL (70-110)
[2023-02-07] MEDS: INSULIN ASPART (NovoLOG) 100 UNIT/ML VIAL SQ SCH ×7 (07:40→20:30)
[2023-02-07 09:27] LABS: Glucose,Whole Blood 259 mg/dL (70-110)
[2023-02-07 11:35] LABS: Glucose,Whole Blood 179 mg/dL (70-110)
[2023-02-07] MEDS ORDERED: GABAPENTIN 300 MG CAP PO PRN (12:10)
[2023-02-07] MEDS ORDERED: NON FORMULARY DRUG (Insulin Lispro (Humalog) 100 UNIT/ML Ml) SQ SCH (12:30)
[2023-02-07 16:32] LABS: Glucose,Whole Blood 218 mg/dL (70-110)
[2023-02-07] MEDS: D5-0.45% NACL WITH KCL 20MEQ/L 1,000 ML IV SCH ×2 (17:12→21:55)
[2023-02-07 20:26] LABS: Glucose,Whole Blood 286 mg/dL (70-110)
[2023-02-07] MEDS: FAMOTIDINE 20 MG TAB PO SCH (20:29)
[2023-02-07] MEDS ORDERED: MIRTAZAPINE 15 MG TAB PO SCH (21:00)
[2023-02-07] MEDS ORDERED: INSULIN DETEMIR (LEVEMIR) 100 UNIT/ML SYR SQ SCH (21:00)
--- NOTE | 2023-02-07 22:25 | HP ---
HISTORY AND PHYSICAL CHIEF COMPLAINT: DKA. HISTORY OF PRESENT ILLNESS: This is another admission for this 27-year-old type 1 diabetic, who comes in at least once a week now when he does not take his insulin. He comes in a DKA. This time, his blood sugar is over 500. REVIEW OF SYSTEMS: He is nauseated and vomiting, but he has no abdominal pain. Remainder of the history is unremarkable. He has been seen by Psychiatry on numerous occasions and refuses to comply. He had a guardian, but the guardian dropped his case due to the noncompliance. PHYSICAL EXAMINATION: VITAL SIGNS: Blood pressure is 138/90 with a pulse of 97, respirations of 34, and he is afebrile. GENERAL: He appeared to be weak, pale, lethargic, and dehydrated. HEAD, EARS, EYES, NOSE, MOUTH, AND THROAT: Normal. CHEST: Clear. CARDIAC: Normal. ABDOMEN: Flat, soft, and nontender. EXTREMITIES: Normal. NEUROLOGIC: He is intact. DIAGNOSES: He is admitted to the hospital with diagnoses: 1. Diabetic ketoacidosis. 2. Depression. 3. Peripheral neuropathy. 4. Dehydration. 5. Gastroparesis. PLAN: 1. Bed rest. 2. IV fluids. 3. Insulin management of his DKA. MMODL / IJN: [id number] /
--- NOTE | 2023-02-07 22:40 | PN ---
PROGRESS NOTE DATE OF SERVICE: 02/07/2023 CHIEF COMPLAINT: DKA with nausea and vomiting. HISTORY OF PRESENT ILLNESS: This gentleman's blood sugars come down slightly. He is still nauseated. He is still dehydrated. PHYSICAL EXAMINATION: CHEST: Clear. CARDIAC: Normal. ABDOMEN: Flat, soft, and nontender. IMPRESSION: 1. Diabetic ketoacidosis. 2. Dehydration. 3. Hyperkalemia. 4. Type 1 diabetes mellitus. 5. Depression. PLAN: Continue to bring blood sugars down, and he might be able to go home later today. MMODL / IJN: [id number] /
[2023-02-08 03:03] LABS: Glucose,Whole Blood 107 mg/dL (70-110)
[2023-02-08] MEDS: INSULIN ASPART (NovoLOG) 100 UNIT/ML VIAL SQ SCH ×5 (03:36→12:52)
[2023-02-08 05:57] LABS: Glucose,Whole Blood 109 mg/dL (70-110)
[2023-02-08] MEDS ORDERED: NON FORMULARY DRUG (Insulin Glargine 100 UNIT/ML Ml) SQ SCH (09:00)
[2023-02-08 09:04] LABS: Glucose,Whole Blood 202 mg/dL (70-110)
[2023-02-08] MEDS: FAMOTIDINE 20 MG TAB PO SCH (09:04)
[2023-02-08 10:40] LABS: African American GFR (CKD) >90 (>60 ml/min/1.73 sqM); Anion Gap 7 mmol/L; Blood Urea Nitrogen 9 mg/dL (9-20); Calcium 8.8 mg/dL (8.4-10.2); Carbon Dioxide 25 mmol/L (22-30); Chloride 101 mmol/L (98-107); Glucose 271 mg/dL (74-99); Magnesium 1.9 mg/dL (1.6-2.3); Non-African American GFR(CKD) >90 (>60 ml/min/1.73 sqM); Potassium 4.7 mmol/L (3.5-5.1); Sodium 133 mmol/L (137-145)
[2023-02-08 11:02] VITALS: BP 118/85; PULSE 95; RESP 18; TEMP 97.9
[2023-02-08] MEDS ORDERED: SODIUM CHLORIDE 0.9% 1,000 ML IV SCH (11:45)
[2023-02-08 12:08] LABS: Glucose,Whole Blood 260 mg/dL (70-110)
--- NOTE | 2023-02-09 17:56 | P.DS ---
Providers Date of admission: 02/06/23 20:40 Attending physician: Brown Valenzuela Primary care physician: Brown Valenzuela Hospital Course: Final diagnosis Diabetic ketoacidosis Depression Diabetes type 1 uncontrolled and noncompliant Discharge disposition Patient stable for discharge home he has been transitioned off the insulin drip and for diabetic ketoacidosis. Patient states that he has insulin and needles and does not need any refills on his medication. Patient has a public guardian due to noncompliance with his medical treatment. Also noncompliance psychiatry. Hospital course This is a 27-year-old male with medical history of type 1 diabetes uncontrolled and noncompliant with regimen. Reportedly patient does not take his insulin as prescribed. Patient presents with a diabetic ketoacidosis had a blood sugar of over 500 on admission he was treated with insulin drip and has since been transitioned to Levemir sliding scale and scheduled insulin. His blood sugars now in the 200s. Sodium of 133, BUN of 9, creatinine 0.72. His CO2 is 25 and his anion gap is 7. Hemodynamically he is stable. Denies chest pain denies shortness of breath no nausea vomiting or diarrhea. Cleared medically for discharge home patient to follow up with Dr. Valenzuela. Please see medication reconciliation for list of current medication. Thank you for allowing us to participate in the care of this patient. The impression and plan of care has been dictated by Grace Blankenship, Nurse Practitioner as directed. Dr. Yadira MD I have performed a history and physical examination and medical decision making of this patient, discussed the same with the dictator, and agree with the dictators assessment and plan as written, documented as a scribe. Based on total visit time, I have performed more than 50% of this visit. Patient Condition at Discharge: Stable Plan - Discharge Summary Discharge Rx Participant: No New Discharge Prescriptions: Continue Mirtazapine 7.5 mg PO HS Famotidine [Pepcid] 20 mg PO BID Gabapentin 600 mg PO TID PRN PRN Reason: Pain Insulin Glargine [Lantus Vial] 30 unit SQ DAILY INSULIN LISPRO (HumaLOG) [humaLOG] 7 units SQ AC-TID Discharge Medication List Gabapentin 600 mg PO TID PRN 10/14/22 [History] Famotidine [Pepcid] 20 mg PO BID 12/31/22 [History] INSULIN LISPRO (HumaLOG) [humaLOG] 7 units SQ AC-TID 12/31/22 [History] Insulin Glargine [Lantus Vial] 30 unit SQ DAILY 12/31/22 [History] Mirtazapine 7.5 mg PO HS 12/31/22 [History] Follow up Appointment(s)/Referral(s): Brown Valenzuela MD [Primary Care Provider] - 1-2 days (Please call office to schedule follow up. ) Ambulatory/Diagnostic Orders: Basic Metabolic Panel [LAB.AMB] Time Frame: 3 Days, Location: None Selected Patient Instructions/Handouts: Diabetic Ketoacidosis (GEN) Activity/Diet/Wound Care/Special Instructions: Continue same home insulin regimen and follow up with your PCP on discharge Discharge Disposition: HOME SELF-CARE
== END 2023-02-08 15:46 | disposition home or self-care (01) | DRG 420 ==
LOC: EC 18:08 → 3SCARD 20:40
PROVIDERS: ADMIT Family Medicine; ATTEND Family Medicine
DX: E10.10 Type 1 diabetes mellitus with ketoacidosis without coma (principal); E10.42 Type 1 diabetes mellitus with diabetic polyneuropathy; E10.43 Type 1 diabetes mellitus with diabetic autonomic (poly)neuropathy; F32.A Depression, unspecified; K31.84 Gastroparesis; E86.0 Dehydration; R00.0 Tachycardia, unspecified; T38.3X6A Underdosing of insulin and oral hypoglycemic [antidiabetic] drugs, initial encounter; E87.5 Hyperkalemia; Z79.4 Long term (current) use of insulin; Z79.899 Other long term (current) drug therapy; Z91.199 Patient's noncompliance with other medical treatment and regimen due to unspecified reason; Z91.128 Patient's intentional underdosing of medication regimen for other reason
CPT/HCPCS: 36415; 80048; 80051; 80053; 81003; 82009; 82565; 82803; 82947; 83605; 83735; 84100; 84520; 85025; 93005; 96360; 96361; 99285

== ENCOUNTER 2023-03-03 20:18 | Inpatient (IN) | payer OTHER ==
[2023-03-03] MEDS ORDERED: droPERidol 5 MG/2 ML VIAL IVP ONE (20:25)
[2023-03-03] MEDS ORDERED: KETOROLAC 15 MG/ML 1 ML VIAL IVP STA (20:25)
[2023-03-03] MEDS ORDERED: SODIUM CHLORIDE 0.9% 2,000 ML IV STA (20:25)
--- NOTE | 2023-03-03 20:32 | ED ---
Altered Mental Status HPI - General Chief Complaint: Altered Mental Status Stated Complaint: Diabetic problems, nausea, vomiting Time Seen by Provider: 03/03/23 20:19 Source: patient, EMS, RN notes reviewed Mode of arrival: EMS Limitations: no limitations - History of Present Illness Initial Comments: 27-year-old male presents emergency Department chief complaint of nausea vomiting hyperglycemia. Patient will only spreads had recent hospitalization [facility] yesterday for DKA. Patient states symptoms started shortly after being discharged. Patient complains of diffuse abdominal pain including nausea vomiting patient has no other complaints. - Related Data Home Medications Medication Instructions Recorded Confirmed No Known Home Medications 02/28/23 03/03/23 Allergies Allergy/AdvReac Type Severity Reaction Status Date / Time No Known Allergies Allergy Verified 03/03/23 22:00 Review of Systems ROS Statement: Those systems with pertinent positive or pertinent negative responses have been documented in the HPI. ROS Other: All systems not noted in ROS Statement are negative. Past Medical History Past Medical History: Asthma, Diabetes Mellitus, Neurologic Disorder, Skin Disorder Additional Past Medical History / Comment(s): IDDM type I, neuropathy bilateral feet, DKA, eczema. History of Any Multi-Drug Resistant Organisms: None Reported Past Surgical History: Adenoidectomy Additional Past Surgical History / Comment(s): 2002 Recent EGD- gastritis Past Anesthesia/Blood Transfusion Reactions: No Reported Reaction Past Psychological History: Anxiety, Depression Smoking Status: Never smoker, Vaper Past Alcohol Use History: None Reported Past Drug Use History: Marijuana - Past Family History Mother Family Medical History: CVA/TIA Additional Family Medical History / Comment(s): TIA Father Family Medical History: Hyperlipidemia, Hypertension Additional Family Medical History / Comment(s): . General Exam Limitations: no limitations General appearance: alert, in no apparent distress Head exam: Present: atraumatic, normocephalic, normal inspection Eye exam: Present: normal appearance, PERRL, EOMI. Absent: scleral icterus, conjunctival injection, periorbital swelling ENT exam: Present: normal exam, normal oropharynx, mucous membranes moist Neck exam: Present: normal inspection, full ROM. Absent: tenderness, meningismu s, lymphadenopathy Respiratory exam: Present: normal lung sounds bilaterally. Absent: respiratory distress, wheezes, rales, rhonchi, stridor Cardiovascular Exam: Present: regular rate, normal rhythm, normal heart sounds. Absent: systolic murmur, diastolic murmur, rubs, gallop, clicks GI/Abdominal exam: Present: soft, tenderness, normal bowel sounds. Absent: distended, guarding, rebound, rigid Neurological exam: Present: alert, oriented X3 Skin exam: Present: warm, dry, intact, normal color. Absent: rash Course Vital Signs 03/03/23 03/03/23 21:29 22:13 Temperature 97.4 F L Pulse Rate 134 H 140 H Respiratory 20 16 Rate Blood Pressure 97/53 110/60 O2 Sat by Pulse 95 99 Oximetry Medical Decision Making - Medical Decision Making Was pt. sent in by a medical professional or institution (JAS Lucero, TOOL PROGRAMMER, urgent care, hospital, or skilled nursing...) When possible be specific @ -No Did you speak to anyone other than the patient for history (EMS, parent, family, police, friend...)? What history was obtained from this source @ -EMS regarding prehospital treatment, vitals Did you review nursing and triage notes (agree or disagree)? Why? @ -I reviewed and agree with nursing and triage notes Were old charts reviewed (outside hosp., previous admission, EMS record, old EKG, old radiological studies, urgent care reports/EKG's, skilled nursing records)? Report findings @ -Prior labs, records Differential Diagnosis (chest pain, altered mental status, abdominal pain women, abdominal pain men, vaginal bleeding, weakness, fever, dyspnea, syncope, headache, dizziness, GI bleed, back pain, seizure, CVA, palpatations, mental health, musculoskeletal)? @ -[DKA, hyperglycemia, nausea vomiting EKG interpreted by me (3pts min.). @ -As above X-rays interpreted by me (1pt min.). @ -None done CT interpreted by me (1pt min.). @ -None done U/S interpreted by me (1pt. min.). @ -None done What testing was considered but not performed or refused? (CT, X-rays, U/S, labs)? Why? @ -None What meds were considered but not given or refused? Why? @ -None Did you discuss the management of the patient with other professionals (professionals i.e. JAS Lucero, TOOL PROGRAMMER, lab, RT, psych nurse, long term care social worker, potato seed cutter, teacher, school resource officer, upper caser)? Give summary @ -Dr. Valenzuela for admission Was smoking cessation discussed for >3mins.? @ -No Was critical care preformed (if so, how long)? @ -35 Were there social determinants of health that impacted care today? How? (Homelessness, low income, unemployed, alcoholism, drug addiction, transportation, low edu. Level, literacy, decrease access to med. care, alf, rehab)? @ -No Was there de-escalation of care discussed even if they declined (Discuss DNR or withdrawal of care, Hospice)? DNR status @ -No What co-morbidities impacted this encounter? (DM, HTN, Smoking, COPD, CAD, Cancer, CVA, ARF, Chemo, Hep., AIDS, mental health diagnosis, sleep apnea, morbid obesity)? @ -Diabetes Was patient admitted / discharged? Hospital course, mention meds given and route, prescriptions, significant lab abnormalities, going to OR and other pertinent info. @ -Admitted patient's found to be in DKA, pH of 7.15, patient was started on IV fluid bolus, pain is fluids, DKA protocol patient is admitted for further treatment and management, repeat laboratories studies Undiagnosed new problem with uncertain prognosis? @ -No Drug Therapy requiring intensive monitoring for toxicity (Heparin, Nitro, In sulin, Cardizem)? @ -Insulin Were any procedures done? @ -No Diagnosis/symptom? @ -DKA Acute, or Chronic, or Acute on Chronic? @ -Acute Uncomplicated (without systemic symptoms) or Complicated (systemic symptoms)? @ -Complicated Side effects of treatment? @ -No Exacerbation, Progression, or Severe Exacerbation? @ -No Poses a threat to life or bodily function? How? (Chest pain, [place], [place], pneumonia, PE, COPD, DKA, ARF, appy, cholecystitis, CVA, Diverticulitis, Homicidal, Suicidal, threat to staff... and all critical care pts) @ -[Yes patient has severe metabolic acidosis, DKA - Lab Data Result diagrams: 03/03/23 20:35 03/03/23 20:35 Lab Results 03/03/23 03/03/23 03/03/23 Range/Units 20:35 20:35 20:35 WBC 13.6 H (3.8-10.6) k/uL RBC 4.62 (4.30-5.90) m/uL Hgb 13.6 (13.0-17.5) gm/dL Hct 45.0 (39.0-53.0) % MCV 97.3 D (80.0-100.0) fL MCH 29.3 (25.0-35.0) pg MCHC 30.1 L (31.0-37.0) g/dL RDW 14.1 (11.5-15.5) % Plt Count 399 (150-450) k/uL MPV 8.3 Neutrophils % 88 % Lymphocytes % 8 % Monocytes % 3 % Eosinophils % 0 % Basophils % 0 % Neutrophils # 12.0 H (1.3-7.7) k/uL Lymphocytes # 1.0 (1.0-4.8) k/uL Monocytes # 0.4 (0-1.0) k/uL Eosinophils # 0.0 (0-0.7) k/uL Basophils # 0.0 (0-0.2) k/uL Hypochromasia Marked VBG pH (7.31-7.41) VBG pCO2 (37-51) mmHg VBG HCO3 (24-28) mmol/L Sodium 141 (137-145) mmol/L Potassium 5.7 H (3.5-5.1) mmol/L Chloride 101 (98-107) mmol/L Carbon Dioxide <5 L* (22-30) mmol/L Anion Gap mmol/L BUN 27 H (9-20) mg/dL Creatinine 1.20 (0.66-1.25) mg/dL Est GFR (CKD-EPI)AfAm >90 (>60 ml/min/1.73 sqM) Est GFR (CKD-EPI)NonAf 84 (>60 ml/min/1.73 sqM) Glucose 682 H* (74-99) mg/dL Plasma Lactic Acid Len (0.7-2.0) mmol/L Calcium 9.5 (8.4-10.2) mg/dL Total Bilirubin 0.8 (0.2-1.3) mg/dL AST 23 (17-59) U/L ALT 27 (4-49) U/L Alkaline Phosphatase 109 (38-126) U/L Total Protein 7.0 (6.3-8.2) g/dL Albumin 4.7 (3.5-5.0) g/dL Lipase 293 (23-300) U/L Urine Color Colorless Urine Appearance Clear (Clear) Urine pH 5.0 (5.0-8.0) Ur Specific [place] 1.022 (1.001-1.035) Urine Protein Negative (Negative) Urine Glucose (UA) 4+ H (Negative) Urine Ketones 4+ H (Negative) Urine Blood Negative (Negative) Urine Nitrite Negative (Negative) Urine Bilirubin Negative (Negative) Urine Urobilinogen <2.0 (<2.0) mg/dL Ur Leukocyte Esterase Negative (Negative) Acetone, Qual Positive (Negative) 03/03/23 03/03/23 Range/Units 20:35 20:35 WBC (3.8-10.6) k/uL RBC (4.30-5.90) m/uL Hgb (13.0-17.5) gm/dL Hct (39.0-53.0) % MCV (80.0-100.0) fL MCH (25.0-35.0) pg MCHC (31.0-37.0) g/dL RDW (11.5-15.5) % Plt Count (150-450) k/uL MPV Neutrophils % % Lymphocytes % % Monocytes % % Eosinophils % % Basophils % % Neutrophils # (1.3-7.7) k/uL Lymphocytes # (1.0-4.8) k/uL Monocytes # (0-1.0) k/uL Eosinophils # (0-0.7) k/uL Basophils # (0-0.2) k/uL Hypochromasia VBG pH 7.16 L* (7.31-7.41) VBG pCO2 17 L* (37-51) mmHg VBG HCO3 6 L* (24-28) mmol/L Sodium (137-145) mmol/L Potassium (3.5-5.1) mmol/L Chloride (98-107) mmol/L Carbon Dioxide (22-30) mmol/L Anion Gap mmol/L BUN (9-20) mg/dL Creatinine (0.66-1.25) mg/dL Est GFR (CKD-EPI)AfAm (>60 ml/min/1.73 sqM) Est GFR (CKD-EPI)NonAf (>60 ml/min/1.73 sqM) Glucose (74-99) mg/dL Plasma Lactic Acid Len 3.8 H* (0.7-2.0) mmol/L Calcium (8.4-10.2) mg/dL Total Bilirubin (0.2-1.3) mg/dL AST (17-59) U/L ALT (4-49) U/L Alkaline Phosphatase (38-126) U/L Total Protein (6.3-8.2) g/dL Albumin (3.5-5.0) g/dL Lipase (23-300) U/L Urine Color Urine Appearance (Clear) Urine pH (5.0-8.0) Ur Specific [place] (1.001-1.035) Urine Protein (Negative) Urine Glucose (UA) (Negative) Urine Ketones (Negative) Urine Blood (Negative) Urine Nitrite (Negative) Urine Bilirubin (Negative) Urine Urobilinogen (<2.0) mg/dL Ur Leukocyte Esterase (Negative) Acetone, Qual (Negative) - EKG Data -: EKG Interpreted by Me EKG Comments: EKG performed at 20:27 sinus tachycardia rate of 131/137 QRS 91 QT/QTC 314/391 sinus tachycardia Critical Care Time Critical Care Time: Yes Total Critical Care Time: 35 Disposition Clinical Impression: DKA (diabetic ketoacidosis) Disposition: ADMITTED IP TO THIS [facility] Condition: Critical Time of Disposition: 22:29
[2023-03-03 21:12] LABS: Basophils % (A) 0 %; Eosinophils % (A) 0 %; HGB 13.6 gm/dL (13.0-17.5); Hypochromasia Marked; Lymphocytes % (A) 8 %; MCH 29.3 pg (25.0-35.0); MCHC 30.1 g/dL (31.0-37.0); Mean Platelet Volume 8.3; Monocytes # (A) 0.4 k/uL (0-1.0); Monocytes % (A) 3 %; Neutrophils % (A) 88 %; Platelet Count 399 k/uL (150-450); RBC 4.62 m/uL (4.30-5.90); RDW 14.1 % (11.5-15.5); WBC 13.6 k/uL (3.8-10.6)
[2023-03-03 21:13] LABS: VBG PH 7.16 (7.31-7.41)
[2023-03-03 21:27] LABS: ALT 27 U/L (4-49); AST 23 U/L (17-59); African American GFR (CKD) >90 (>60 ml/min/1.73 sqM); Albumin 4.7 g/dL (3.5-5.0); Alkaline Phosphatase 109 U/L (38-126); Blood Urea Nitrogen 27 mg/dL (9-20); Calcium 9.5 mg/dL (8.4-10.2); Chloride 101 mmol/L (98-107); Lipase 293 U/L (23-300); Non-African American GFR(CKD) 84 (>60 ml/min/1.73 sqM); Potassium 5.7 mmol/L (3.5-5.1); Sodium 141 mmol/L (137-145); Total Bilirubin 0.8 mg/dL (0.2-1.3)
[2023-03-03 21:33] LABS: MCV 97.3 fL (80.0-100.0)
[2023-03-03 21:48] LABS: Appearance,Urine Clear (Clear); Bilirubin,Urine Negative (Negative); Blood,Urine Negative (Negative); Color,Urine Colorless; Glucose,Urine (UA) 4+ (Negative); Leukocyte Esterase,Urine Negative (Negative); Nitrite,Urine Negative (Negative); Protein,Urine Negative (Negative); Specific Gravity,Urine 1.022 (1.001-1.035); Urobilinogen,Urine <2.0 mg/dL (<2.0)
[2023-03-03 21:51] LABS: Carbon Dioxide <5 mmol/L (22-30); Glucose 682 mg/dL (74-99)
[2023-03-03] MEDS ORDERED: INSULIN REGULAR BOLUS (FROM DRIP BAG) IV ONE (21:58)
[2023-03-03 22:02] LABS: Ketones,Urine 4+ (Negative)
[2023-03-03 22:20] LABS: Glucose,Whole Blood 572 mg/dL (70-110)
[2023-03-03] MEDS: INSULIN REGULAR 100 UNIT in SODIUM CHLORIDE 0.9% 100 ML IV SCH (22:48)
[2023-03-03] MEDS: SODIUM CHLORIDE 0.9% 1,000 ML IV SCH (22:50)
--- NOTE | 2023-03-03 23:14 | HP ---
HISTORY AND PHYSICAL CHIEF COMPLAINT: DKA. HISTORY OF PRESENT ILLNESS: This gentleman is back. He signed out yesterday. Comes back in with a pH of 7.1. He is not taking any medications since he left the hospital. REVIEW OF SYSTEMS: Not obtained. Past medical history, family history, and personal and social histories are unchanged. PHYSICAL EXAMINATION: VITAL SIGNS: Blood pressure is 99/50 with a pulse of GENERAL: Appeared to be dehydrated and lethargic. HEAD, EARS, EYES, NOSE, MOUTH, AND Throat: Otherwise, normal. CHEST: Clear. CARDIAC: Normal. ABDOMEN: Flat and soft. EXTREMITIES: Normal. IMPRESSION: 1. Diabetic ketoacidosis. 2. Noncompliant uncontrolled type 1 insulin-dependent diabetic. 3. Depression. PLAN: Bedrest in ICU with DKA protocol. MMODL / IJN: [id number] /
[2023-03-03 23:18] LABS: Glucose,Whole Blood 529 mg/dL (70-110)
[2023-03-04 00:27] LABS: Glucose,Whole Blood 429 mg/dL (70-110)
[2023-03-04 01:23] LABS: African American GFR (CKD) 86 (>60 ml/min/1.73 sqM); Anion Gap 31 mmol/L; Blood Urea Nitrogen 31 mg/dL (9-20); Chloride 111 mmol/L (98-107); Glucose 427 mg/dL (74-99); Non-African American GFR(CKD) 74 (>60 ml/min/1.73 sqM); Potassium 4.9 mmol/L (3.5-5.1); Sodium 147 mmol/L (137-145)
[2023-03-04 01:27] LABS: Glucose,Whole Blood 346 mg/dL (70-110)
[2023-03-04 01:33] LABS: Carbon Dioxide 5 mmol/L (22-30)
[2023-03-04 02:12] LABS: Glucose,Whole Blood 278 mg/dL (70-110)
[2023-03-04 03:07] LABS: Glucose,Whole Blood 213 mg/dL (70-110)
[2023-03-04] MEDS: D5-0.45% NACL WITH KCL 20MEQ/L 1,000 ML IV SCH ×4 (03:51→23:08)
[2023-03-04] MEDS: SODIUM CHLORIDE 0.9% 1,000 ML IV SCH ×5 (03:54→22:13)
[2023-03-04 04:07] LABS: Glucose,Whole Blood 186 mg/dL (70-110)
[2023-03-04 05:10] LABS: African American GFR (CKD) >90 (>60 ml/min/1.73 sqM); Anion Gap 19 mmol/L; Blood Urea Nitrogen 29 mg/dL (9-20); Carbon Dioxide 13 mmol/L (22-30); Chloride 117 mmol/L (98-107); Glucose 175 mg/dL (74-99); Non-African American GFR(CKD) >90 (>60 ml/min/1.73 sqM); Potassium 4.3 mmol/L (3.5-5.1); Sodium 149 mmol/L (137-145)
[2023-03-04 05:17] LABS: Glucose,Whole Blood 158 mg/dL (70-110)
[2023-03-04 06:05] LABS: Glucose,Whole Blood 149 mg/dL (70-110)
[2023-03-04 07:03] LABS: Glucose,Whole Blood 118 mg/dL (70-110)
[2023-03-04 08:02] LABS: Glucose,Whole Blood 138 mg/dL (70-110)
[2023-03-04 09:02] LABS: Glucose,Whole Blood 173 mg/dL (70-110)
[2023-03-04 10:00] LABS: Glucose,Whole Blood 212 mg/dL (70-110)
[2023-03-04 11:04] LABS: Glucose,Whole Blood 244 mg/dL (70-110)
[2023-03-04 11:41] VITALS: BMI 17.4
[2023-03-04 12:05] LABS: Glucose,Whole Blood 215 mg/dL (70-110)
[2023-03-04 12:45] LABS: African American GFR (CKD) >90 (>60 ml/min/1.73 sqM); Anion Gap 20 mmol/L; Blood Urea Nitrogen 24 mg/dL (9-20); Calcium 8.6 mg/dL (8.4-10.2); Carbon Dioxide 12 mmol/L (22-30); Chloride 111 mmol/L (98-107); Glucose 206 mg/dL (74-99); Non-African American GFR(CKD) >90 (>60 ml/min/1.73 sqM); Potassium 4.5 mmol/L (3.5-5.1); Sodium 143 mmol/L (137-145)
[2023-03-04 13:02] LABS: Glucose,Whole Blood 239 mg/dL (70-110)
[2023-03-04 13:59] LABS: Glucose,Whole Blood 257 mg/dL (70-110)
[2023-03-04] MEDS: INSULIN REGULAR 100 UNIT in SODIUM CHLORIDE 0.9% 100 ML IV SCH (14:12)
[2023-03-04 14:59] LABS: Glucose,Whole Blood 262 mg/dL (70-110)
[2023-03-04] MEDS ORDERED: ONDANSETRON 4 MG/2 ML VIAL IVP PRN (15:46)
[2023-03-04 16:05] LABS: Glucose,Whole Blood 234 mg/dL (70-110)
[2023-03-04 17:05] LABS: Glucose,Whole Blood 197 mg/dL (70-110)
[2023-03-04 18:04] LABS: Glucose,Whole Blood 265 mg/dL (70-110)
[2023-03-04 19:02] LABS: Glucose,Whole Blood 221 mg/dL (70-110)
[2023-03-04 19:51] LABS: African American GFR (CKD) >90 (>60 ml/min/1.73 sqM); Anion Gap 10 mmol/L; Blood Urea Nitrogen 16 mg/dL (9-20); Calcium 8.1 mg/dL (8.4-10.2); Carbon Dioxide 21 mmol/L (22-30); Chloride 100 mmol/L (98-107); Glucose 229 mg/dL (74-99); Non-African American GFR(CKD) >90 (>60 ml/min/1.73 sqM); Potassium 4.2 mmol/L (3.5-5.1); Sodium 131 mmol/L (137-145)
[2023-03-04 20:08] LABS: Glucose,Whole Blood 211 mg/dL (70-110)
[2023-03-04 21:02] LABS: Glucose,Whole Blood 227 mg/dL (70-110)
[2023-03-04] MEDS: METOCLOPRAMIDE 5 MG/ML 2 ML VIAL IVP SCH (21:04)
[2023-03-04] MEDS ORDERED: INSULIN DETEMIR (LEVEMIR) 100 UNIT/ML SYR SQ SCH (22:00)
[2023-03-04 22:06] LABS: Glucose,Whole Blood 217 mg/dL (70-110)
[2023-03-04 23:02] LABS: Glucose,Whole Blood 196 mg/dL (70-110)
[2023-03-04] MEDS: INSULIN ASPART (NovoLOG) 100 UNIT/ML VIAL SQ SCH (23:55)
[2023-03-05 03:33] VITALS: RESP 16; TEMP 97.9
[2023-03-05 05:47] LABS: Glucose,Whole Blood 113 mg/dL (70-110)
[2023-03-05] MEDS: D5-0.45% NACL WITH KCL 20MEQ/L 1,000 ML IV SCH ×2 (06:10→09:13)
[2023-03-05] MEDS: SODIUM CHLORIDE 0.9% 1,000 ML IV SCH ×3 (06:14→11:33)
[2023-03-05] MEDS: INSULIN ASPART (NovoLOG) 100 UNIT/ML VIAL SQ SCH ×3 (06:14→17:28)
[2023-03-05] MEDS: INSULIN REGULAR 100 UNIT in SODIUM CHLORIDE 0.9% 100 ML IV SCH (06:14)
[2023-03-05] MEDS ORDERED: INSULIN DETEMIR (LEVEMIR) 100 UNIT/ML SYR SQ SCH ×2 (07:00→21:00)
[2023-03-05] MEDS: METOCLOPRAMIDE 5 MG/ML 2 ML VIAL IVP SCH (09:13)
[2023-03-05 11:23] LABS: Glucose,Whole Blood 141 mg/dL (70-110)
[2023-03-05 11:39] LABS: African American GFR (CKD) >90 (>60 ml/min/1.73 sqM); Anion Gap 6 mmol/L; Blood Urea Nitrogen 6 mg/dL (9-20); Calcium 8.3 mg/dL (8.4-10.2); Carbon Dioxide 25 mmol/L (22-30); Chloride 102 mmol/L (98-107); Glucose 151 mg/dL (74-99); Non-African American GFR(CKD) >90 (>60 ml/min/1.73 sqM); Phosphorus 2.4 mg/dL (2.5-4.5); Potassium 4.1 mmol/L (3.5-5.1); Sodium 133 mmol/L (137-145)
[2023-03-05 16:49] LABS: Glucose,Whole Blood 335 mg/dL (70-110)
[2023-03-05 16:50] VITALS: BP 137/90; PULSE 86
--- NOTE | 2023-03-07 03:11 | DS ---
DISCHARGE SUMMARY CHIEF COMPLAINT: Diabetic ketoacidosis. HISTORY OF PRESENT ILLNESS AND PHYSICAL EXAMINATION: Details of this young man's history and physical can be found in the initial workup. LABORATORY STUDIES: While he was in the hospital, he had laboratory studies, details of which can be found in the laboratory section of his chart. COURSE IN THE HOSPITAL: After admission, he was placed on bedrest and started on DKA protocol. Blood sugars came down, his gap closed and he was placed back on his long-term insulin and regular diet and activity. He is doing well and even though he had some nausea, and vomiting, this was stopped and it was felt that he could go home on the . He will go home on his usual activity and will take his medicine as prescribed and will be seen in the office. FINAL DIAGNOSES: 1. Diabetic ketoacidosis. 2. Gastroparesis. 3. Peripheral neuropathy. 4. Depression. OPERATIONS: None. CONSULTATION: None, he is improved. MMBIANCA / ALDEN: [id number] /
--- NOTE | 2023-03-07 03:28 | PN ---
PROGRESS NOTE DATE OF SERVICE: 03/04/2023 CHIEF COMPLAINT: DKA. HISTORY OF PRESENT ILLNESS: This gentleman is doing bit better. He is awake and alert. He is somewhat nauseated and he is vomiting. Blood sugars are coming down. PHYSICAL EXAMINATION: VITAL SIGNS: Normal. CHEST: Clear. CARDIAC: Normal. ABDOMEN: Soft, nontender. IMPRESSION: 1. DKA. 2. Nausea. 3. Dehydration. 4. Depression. PLAN: Anti-emetics and continue to adjust his blood sugars and probably home tomorrow. MMODL / IJN: [id number] /
== END 2023-03-05 17:50 | disposition home or self-care (01) | DRG 420 ==
LOC: EC 20:18 → 3SCARD 22:19
PROVIDERS: ADMIT Family Medicine; ATTEND Family Medicine
DX: E11.10 Type 2 diabetes mellitus with ketoacidosis without coma (principal); E78.5 Hyperlipidemia, unspecified; L30.9 Dermatitis, unspecified; E11.42 Type 2 diabetes mellitus with diabetic polyneuropathy; F17.290 Nicotine dependence, other tobacco product, uncomplicated; I10 Essential (primary) hypertension; F32.A Depression, unspecified; Z79.4 Long term (current) use of insulin; Z91.199 Patient's noncompliance with other medical treatment and regimen due to unspecified reason; Z82.49 Family history of ischemic heart disease and other diseases of the circulatory system
CPT/HCPCS: 36415; 80048; 80051; 80053; 81003; 82009; 82565; 82803; 82947; 83605; 83690; 84100; 84520; 85025; 93005; 96361; 96374; 96375; 99291

== ENCOUNTER 2023-03-07 03:07 | Inpatient (IN) | payer OTHER ==
[2023-03-07] MEDS ORDERED: SODIUM CHLORIDE 0.9% 2,000 ML IV STA (03:10)
[2023-03-07 03:16] LABS: Glucose,Whole Blood >600 mg/dL (70-110)
[2023-03-07] MEDS ORDERED: INSULIN REGULAR 100 UNIT/ML VIAL (IV) IV ONE (03:20)
[2023-03-07] MEDS ORDERED: SODIUM BICARB 8.4% 50 ML SYR (1 MEQ/ML) IV ONE (03:20)
[2023-03-07] MEDS ORDERED: SODIUM ZIRCONIUM CYCLOSILICATE 10 GM PACKET PO ONE (03:20)
[2023-03-07] MEDS ORDERED: CALCIUM GLUCONATE IN NACL 1 GM in SALINE 1 100ML.BAG IVPB ONE (03:20)
[2023-03-07] MEDS ORDERED: ALBUTEROL NEB (CONC) 2.5 MG/0.5 ML INHALATION ONE (03:20)
[2023-03-07] MEDS ORDERED: SODIUM BICARB 8.4% 50 ML SYR (1 MEQ/ML) IV STA (03:21)
[2023-03-07] MEDS ORDERED: METOCLOPRAMIDE 5 MG/ML 2 ML VIAL IVP STA (03:22)
[2023-03-07 03:39] LABS: HCT 43.9 % (39.0-53.0); HGB 12.1 gm/dL (13.0-17.5); Hypochromasia Marked; MCH 29.5 pg (25.0-35.0); MCHC 27.6 g/dL (31.0-37.0); Macrocytosis Moderate; Mean Platelet Volume 8.6; Platelet Count 555 k/uL (150-450); RBC 4.11 m/uL (4.30-5.90); RDW 14.1 % (11.5-15.5); WBC 37.4 k/uL (3.8-10.6)
[2023-03-07 03:44] LABS: VBG PH 6.77 (7.31-7.41)
[2023-03-07 03:47] LABS: ABG Oxygen Saturation 97.9 % (94-97); ABG PO2 133 mmHg (83-108); Allen Test Performed? Yes
[2023-03-07 03:52] LABS: ABG PCO2 <15 mmHg (35-45); ABG PH 7.03 (7.35-7.45)
[2023-03-07 03:53] LABS: Partial Thromboplastin Time 29.6 sec (22.0-30.0); Prothrombin Time 10.3 sec (9.0-12.0)
[2023-03-07 03:57] LABS: ALT 22 U/L (4-49); AST 21 U/L (17-59); African American GFR (CKD) 34 (>60 ml/min/1.73 sqM); Albumin 4.1 g/dL (3.5-5.0); Alcohol <10 mg/dL; Alkaline Phosphatase 120 U/L (38-126); Amylase 52 U/L (30-110); Blood Urea Nitrogen 36 mg/dL (9-20); Calcium 9.1 mg/dL (8.4-10.2); Chloride 97 mmol/L (98-107); Lipase 249 U/L (23-300); Non-African American GFR(CKD) 30 (>60 ml/min/1.73 sqM); Sodium 140 mmol/L (137-145); Total Bilirubin 0.2 mg/dL (0.2-1.3)
[2023-03-07] MEDS ORDERED: SODIUM CHLORIDE 0.9% 1,000 ML IV STA (03:58)
--- NOTE | 2023-03-07 04:04 | ED ---
General Adult HPI - General Chief complaint: Recheck/Abnormal Lab/Rx Stated complaint: DKA Time Seen by Provider: 03/07/23 03:10 Source: patient, EMS, RN notes reviewed, old records reviewed Mode of arrival: EMS - History of Present Illness Initial comments: Patient is a 27-year-old male with past medical history remarkable for insulin- dependent type 1 diabetes who is well-known to our emergency department presents emergency Department complaining of likely DKA. Found at home covered in vomit. Has a history of marijuana hyperemesis. EMS found the patient mildly hypotherm ic, somewhat unresponsive breathing quickly. By the patient's emergency department for further evaluation. Patient is unable to provide any history. Presents for further evaluation of this time. Strongly suspect DKA. Was recently here with similar complaints. - Related Data Previous Rx's Medication Instructions Recorded Insulin Detemir (Levemir) [Levemir] 30 unit SQ HS 30 Days #30 each 03/05/23 Allergies Allergy/AdvReac Type Severity Reaction Status Date / Time No Known Allergies Allergy Verified 03/07/23 03:18 Review of Systems ROS Statement: Those systems with pertinent positive or pertinent negative responses have been documented in the HPI. ROS Other: All systems not noted in ROS Statement are negative. Past Medical History Past Medical History: Asthma, Diabetes Mellitus, Neurologic Disorder, Skin Disorder Additional Past Medical History / Comment(s): IDDM type I, neuropathy bilateral feet, DKA, eczema. History of Any Multi-Drug Resistant Organisms: None Reported Past Surgical History: Adenoidectomy Additional Past Surgical History / Comment(s): 2002 Recent EGD- gastritis Past Anesthesia/Blood Transfusion Reactions: No Reported Reaction Past Psychological History: Anxiety, Depression Smoking Status: Never smoker, Vaper Past Alcohol Use History: None Reported Past Drug Use History: Marijuana - Past Family History Mother Family Medical History: CVA/TIA Additional Family Medical History / Comment(s): TIA Father Family Medical History: Hyperlipidemia, Hypertension Additional Family Medical History / Comment(s): . General Exam - General Exam Comments Initial Comments: General: Appears in moderate to severe distress. Hypothermic. HEAD: Normal with no signs of head trauma. EYES: PERRLA, EOMI, conjunctiva normal, no discharge. ENT: Hearing grossly intact, normal oropharynx. Dry mucous membranes. RESPIRATORY: Increased work of breathing. No significant hypoxia. C/V: Tachycardic. S1 and S2 auscultated. Peripheral pulses 2+ and intact throughout. ABD: Abd is soft, nontender, nondistended EXT: Normal range of motion, no obvious deformity SKIN: No rashes or lesions observed on exposed skin. NEURO: Alert, oriented times one to 2. Course Vital Signs 03/07/23 03/07/23 03/07/23 03:12 04:11 04:20 Temperature 91.2 F L 89.8 F L Pulse Rate 82 95 97 Respiratory 26 H 24 24 Rate Blood Pressure 91/51 94/44 100/55 O2 Sat by Pulse 94 L 98 97 Oximetry 03/07/23 03/07/23 03/07/23 04:35 04:49 04:50 Temperature 90.0 F L 90.3 F L Pulse Rate 101 H 101 H 102 H Respiratory 24 24 Rate Blood Pressure 102/66 123/76 O2 Sat by Pulse 98 98 Oximetry 03/07/23 03/07/23 03/07/23 04:59 05:00 06:00 Temperature 90.9 F L 91.9 F L Pulse Rate 103 H 105 H 110 H Respiratory 24 24 Rate Blood Pressure 117/71 110/72 O2 Sat by Pulse 99 98 Oximetry Medical Decision Making - Medical Decision Making Was pt. sent in by a medical professional or institution (, PA, ADVISER SALES, urgent care, hospital, or long-term...) When possible be specific @ -No Did you speak to anyone other than the patient for history (EMS, parent, family, police, friend...)? What history was obtained from this source @ -EMS provided by the patient's recent past medical history at home. Did you review nursing and triage notes (agree or disagree)? Why? @ -I reviewed and agree with nursing and triage notes Were old charts reviewed (outside hosp., previous admission, EMS record, old EKG, old radiological studies, urgent care reports/EKG's, long-term records)? Report findings @ -Old charts reviewed. Differential Diagnosis (chest pain, altered mental status, abdominal pain women, abdominal pain men, vaginal bleeding, weakness, fever, dyspnea, syncope, headache, dizziness, GI bleed, back pain, seizure, CVA, palpatations, mental health, musculoskeletal)? @ -DKA, hyperkalemia, dehydration, hyperemesis for marijuana, infection. This list is not all inclusive. EKG interpreted by me (3pts min.). @ -As above X-rays interpreted by me (1pt min.). @ -Patient's chest x-ray reveals no obvious acute cardiopulmonary process. CT interpreted by me (1pt min.). @ -None done U/S interpreted by me (1pt. min.). @ -None done What testing was considered but not performed or refused? (CT, X-rays, U/S, labs)? Why? @ -None What meds were considered but not given or refused? Why? @ -None Did you discuss the management of the patient with other professionals (professionals i.e. , PA, ADVISER SALES, lab, RT, psych nurse, administrator social welfare, manager machine, teacher, fisheries enforcement officer, bilingual case manager)? Give summary @ -Discussed with ICU attending Dr. Montoya who accepted the patient to ICU. Was in agreement with plan. Discussed with the admitting physician Dr. Valenzuela who accepted the patient. Was smoking cessation discussed for >3mins.? @ -No Was critical care preformed (if so, how long)? @ -yes, 42 minutes. Were there social determinants of health that impacted care today? How? (Homelessness, low income, unemployed, alcoholism, drug addiction, chandler sportation, low edu. Level, literacy, decrease access to med. care, halfway, rehab)? @ -No Was there de-escalation of care discussed even if they declined (Discuss DNR or withdrawal of care, Hospice)? DNR status @ -No What co-morbidities impacted this encounter? (DM, HTN, Smoking, COPD, CAD, Cancer, CVA, ARF, Chemo, Hep., AIDS, mental health diagnosis, sleep apnea, morbid obesity)? @ -Poorly controlled type 1 diabetes Was patient admitted / discharged? Hospital course, mention meds given and route, prescriptions, significant lab abnormalities, going to OR and other pertinent info. @ -Based on the patient's presentation and physical exam, I'm concerned for DKA. Patient presents frequently to the emergency department for this complaint. Hypothermic, as he was laying in his cold hospital closed on. We will cover the patient with warm blankets as well as a bear hugger. Warm IV fluids will be administered. We'll obtain DKA labs. Chest x-ray will be obtai fly. Screening EKG will be obtained. He'll be given 2 L fluid bolus immediately. ABG via RT will be obtained. Patient's vital signs markable for soft blood pressures, tachycardia secondary to dehydration. Is also hypothermic with a temperature of 91F. Patient's EKG shows findings concerning for acute hyperkalemia with T wave peaking. Therefore patient received a hyperkalemia cocktail consisting of 2 A of bicarb, IV calcium, albuterol, IV insulin. He was also given IV Reglan. Third IV fluid bolus will be administered. When patient can tolerate, he will be given 10 g of lokelma. Chest x-ray reveals no obvious acute cardiopulmonary process. Patient's laboratory studies concerning for anion gap metabolic acidosis secondary to DKA. Patient has a leukocytosis of a left shift which is likely secondary to the DKA. Patient's ABG pH is 7.03. Patient is hyperkalemic as well on labs in addition to on EKG and patient was given lidocaine cocktail detailed above. Has an acute kidney injury secondary to dehydration. Lactic acid is also elevated at 5.7 likely secondary dehydration. Urinalysis shows 4+ ketones and glucose. Acetones are positive. Patient presents in DKA. Vital signs are stabilizing. He is more alert at this time and is able. To communicate. Has no acute complaints at this time but feels weak. His alert and oriented 2-3 and is improving slowly. Patient will be admitted to the ICU. I spoke with Dr. Montoya who is in agreement with the plan. We will keep the patient on the DKA protocol. I spoke with patient's admitting physician, Dr. cody who accepted the admission as well. Patient's hypothermia is improving as well. Undiagnosed new problem with uncertain prognosis? @ -No Drug Therapy requiring intensive monitoring for toxicity (Heparin, Nitro, Insulin, Cardizem)? @ -Insulin Were any procedures done? @ -No Diagnosis/symptom? @ -DKA, hyperkalemia, dehydration, AKA, hypothermia, anion gap metabolic acidosis, confusion Acute, or Chronic, or Acute on Chronic? @ -Acute Uncomplicated (without systemic symptoms) or Complicated (systemic symptoms)? @ -Complicated Side effects of treatment? @ -none Exacerbation, Progression, or Severe Exacerbation] @ -no Poses a threat to life or bodily function? @ -Yes Diagnosis/symptom? @ -Leukocytosis likely secondary to severe DKA. Acute, or Chronic, or Acute on Chronic? @ -Acute Uncomplicated (without systemic symptoms) or Complicated (systemic symptoms)? @ -Complicated Side effects of treatment? @ -none Exacerbation, Progression, or Severe Exacerbation] @ -no Poses a threat to life or bodily function? @ -no - Lab Data Result diagrams: 03/07/23 03:19 03/07/23 03:19 Lab Results 03/07/23 03/07/23 03/07/23 Range/Units 03:14 03:19 03:19 WBC 37.4 H (3.8-10.6) k/uL RBC 4.11 L (4.30-5.90) m/uL Hgb 12.1 L (13.0-17.5) gm/dL Hct 43.9 (39.0-53.0) % MCV 106.8 H D (80.0-100.0) fL MCH 29.5 (25.0-35.0) pg MCHC 27.6 L (31.0-37.0) g/dL RDW 14.1 (11.5-15.5) % Plt Count 555 H (150-450) k/uL MPV 8.6 Neutrophils % Not Reportable Neutrophils % (Manual) 70 % Band Neuts % (Manual) 2 % Lymphocytes % Not Reportable Lymphocytes % (Manual) 18 % Monocytes % Not Reportable Monocytes % (Manual) 8 % Eosinophils % Not Reportable Basophils % Not Reportable Metamyelocytes % 2 % Myelocytes % 1 % Neutrophils # Not Reportable Neutrophils # (Manual) 26.90 H (1.3-7.7) k/uL Lymphocytes # Not Reportable Lymphocytes # (Manual) 6.73 H (1.0-4.8) k/uL Monocytes # Not Reportable Monocytes # (Manual) 2.99 H (0-1.0) k/uL Eosinophils # Not Reportable Basophils # Not Reportable Metamyelocytes # (Man) 0.75 H (0) k/uL Myelocytes # (Manual) 0.37 H (0) k/uL Nucleated RBCs 0 (0-0) /100 WBC Manual Slide Review Performed Polychromasia Present Hypochromasia Marked Poikilocytosis (manual Present Anisocytosis (manual) Present Macrocytosis Moderate PT 10.3 (9.0-12.0) sec INR 1.0 (<1.2) APTT 29.6 (22.0-30.0) sec Sample Site ABG pH (7.35-7.45) ABG pCO2 (35-45) mmHg ABG pO2 (83-108) mmHg ABG O2 Saturation (94-97) % Frank Test VBG pH (7.31-7.41) VBG pCO2 (37-51) mmHg VBG HCO3 (24-28) mmol/L FiO2 % Sodium (137-145) mmol/L Potassium (3.5-5.1) mmol/L Chloride (98-107) mmol/L Carbon Dioxide (22-30) mmol/L Anion Gap mmol/L BUN (9-20) mg/dL Creatinine (0.66-1.25) mg/dL Est GFR (CKD-EPI)AfAm (>60 ml/min/1.73 sqM) Est GFR (CKD-EPI)NonAf (>60 ml/min/1.73 sqM) Glucose (74-99) mg/dL POC Glucose (mg/dL) >600 H (70-110) mg/dL POC Glu Inspector And Clipper ID Colleen Dumont Lactic Ac Sepsis Rflx Plasma Lactic Acid Len (0.7-2.0) mmol/L Calcium (8.4-10.2) mg/dL Total Bilirubin (0.2-1.3) mg/dL AST (17-59) U/L ALT (4-49) U/L Alkaline Phosphatase (38-126) U/L Total Protein (6.3-8.2) g/dL Albumin (3.5-5.0) g/dL Amylase (30-110) U/L Lipase (23-300) U/L Urine Color Urine Appearance (Clear) Urine pH (5.0-8.0) Ur Specific Alpine (1.001-1.035) Urine Protein (Negative) Urine Glucose (UA) (Negative) Urine Ketones (Negative) Urine Blood (Negative) Urine Nitrite (Negative) Urine Bilirubin (Negative) Urine Urobilinogen (<2.0) mg/dL Ur Leukocyte Esterase (Negative) Urine WBC (0-5) /hpf Ur Squamous Epith Cells (0-4) /hpf Urine Bacteria (None) /hpf Hyaline Casts (0-2) /lpf Granular Casts (0) /lpf Urine Mucus (None) /hpf Urine Opiates Screen (NotDetected) Ur Oxycodone Screen (NotDetected) Urine Methadone Screen (NotDetected) Ur Propoxyphene Screen (NotDetected) Ur Barbiturates Screen (NotDetected) U Tricyclic Antidepress (NotDetected) Ur Phencyclidine Scrn (NotDetected) Ur Amphetamines Screen (NotDetected) U Methamphetamines Scrn (NotDetected) U Benzodiazepines Scrn (NotDetected) Urine Cocaine Screen (NotDetected) U Marijuana (THC) Screen (NotDetected) Serum Alcohol mg/dL Acetone, Qual (Negative) Influenza Type A (PCR) (Not Detectd) Influenza Type B (PCR) (Not Detectd) RSV (PCR) (Not Detectd) SARS-CoV-2 (PCR) (Not Detectd) 03/07/23 03/07/23 03/07/23 Range/Units 03:19 03:19 03:19 WBC (3.8-10.6) k/uL RBC (4.30-5.90) m/uL Hgb (13.0-17.5) gm/dL Hct (39.0-53.0) % MCV (80.0-100.0) fL MCH (25.0-35.0) pg MCHC (31.0-37.0) g/dL RDW (11.5-15.5) % Plt Count (150-450) k/uL MPV Neutrophils % Neutrophils % (Manual) % Band Neuts % (Manual) % Lymphocytes % Lymphocytes % (Manual) % Monocytes % Monocytes % (Manual) % Eosinophils % Basophils % Metamyelocytes % % Myelocytes % % Neutrophils # Neutrophils # (Manual) (1.3-7.7) k/uL Lymphocytes # Lymphocytes # (Manual) (1.0-4.8) k/uL Monocytes # Monocytes # (Manual) (0-1.0) k/uL Eosinophils # Basophils # Metamyelocytes # (Man) (0) k/uL Myelocytes # (Manual) (0) k/uL Nucleated RBCs (0-0) /100 WBC Manual Slide Review Polychromasia Hypochromasia Poikilocytosis (manual Anisocytosis (manual) Macrocytosis PT (9.0-12.0) sec INR (<1.2) APTT (22.0-30.0) sec Sample Site ABG pH (7.35-7.45) ABG pCO2 (35-45) mmHg ABG pO2 (83-108) mmHg ABG O2 Saturation (94-97) % Frank Test VBG pH (7.31-7.41) VBG pCO2 (37-51) mmHg VBG HCO3 (24-28) mmol/L FiO2 % Sodium 140 (137-145) mmol/L Potassium 7.2 H* (3.5-5.1) mmol/L Chloride 97 L (98-107) mmol/L Carbon Dioxide <5 L* (22-30) mmol/L Anion Gap mmol/L BUN 36 H (9-20) mg/dL Creatinine 2.82 H (0.66-1.25) mg/dL Est GFR (CKD-EPI)AfAm 34 (>60 ml/min/1.73 sqM) Est GFR (CKD-EPI)NonAf 30 (>60 ml/min/1.73 sqM) Glucose 1067 H* (74-99) mg/dL POC Glucose (mg/dL) (70-110) mg/dL POC Glu Inspector And Clipper ID Lactic Ac Sepsis Rflx Plasma Lactic Acid Len 5.7 H* (0.7-2.0) mmol/L Calcium 9.1 (8.4-10.2) mg/dL Total Bilirubin 0.2 (0.2-1.3) mg/dL AST 21 (17-59) U/L ALT 22 (4-49) U/L Alkaline Phosphatase 120 (38-126) U/L Total Protein 6.0 L (6.3-8.2) g/dL Albumin 4.1 (3.5-5.0) g/dL Amylase 52 (30-110) U/L Lipase 249 (23-300) U/L Urine Color Colorless Urine Appearance Clear (Clear) Urine pH 5.0 (5.0-8.0) Ur Specific Alpine 1.019 (1.001-1.035) Urine Protein Trace H (Negative) Urine Glucose (UA) 4+ H (Negative) Urine Ketones 4+ H (Negative) Urine Blood Trace H (Negative) Urine Nitrite Negative (Negative) Urine Bilirubin Negative (Negative) Urine Urobilinogen <2.0 (<2.0) mg/dL Ur Leukocyte Esterase Negative (Negative) Urine WBC 8 H (0-5) /hpf Ur Squamous Epith Cells <1 (0-4) /hpf Urine Bacteria Rare H (None) /hpf Hyaline Casts 18 H (0-2) /lpf Granular Casts 6 (0) /lpf Urine Mucus Rare H (None) /hpf Urine Opiates Screen (NotDetected) Ur Oxycodone Screen (NotDetected) Urine Methadone Screen (NotDetected) Ur Propoxyphene Screen (NotDetected) Ur Barbiturates Screen (NotDetected) U Tricyclic Antidepress (NotDetected) Ur Phencyclidine Scrn (NotDetected) Ur Amphetamines Screen (NotDetected) U Methamphetamines Scrn (NotDetected) U Benzodiazepines Scrn (NotDetected) Urine Cocaine Screen (NotDetected) U Marijuana (THC) Screen (NotDetected) Serum Alcohol <10 mg/dL Acetone, Qual Positive (Negative) Influenza Type A (PCR) (Not Detectd) Influenza Type B (PCR) (Not Detectd) RSV (PCR) (Not Detectd) SARS-CoV-2 (PCR) (Not Detectd) 03/07/23 03/07/23 03/07/23 Range/Units 03:19 03:19 03:45 WBC (3.8-10.6) k/uL RBC (4.30-5.90) m/uL Hgb (13.0-17.5) gm/dL Hct (39.0-53.0) % MCV (80.0-100.0) fL MCH (25.0-35.0) pg MCHC (31.0-37.0) g/dL RDW (11.5-15.5) % Plt Count (150-450) k/uL MPV Neutrophils % Neutrophils % (Manual) % Band Neuts % (Manual) % Lymphocytes % Lymphocytes % (Manual) % Monocytes % Monocytes % (Manual) % Eosinophils % Basophils % Metamyelocytes % % Myelocytes % % Neutrophils # Neutrophils # (Manual) (1.3-7.7) k/uL Lymphocytes # Lymphocytes # (Manual) (1.0-4.8) k/uL Monocytes # Monocytes # (Manual) (0-1.0) k/uL Eosinophils # Basophils # Metamyelocytes # (Man) (0) k/uL Myelocytes # (Manual) (0) k/uL Nucleated RBCs (0-0) /100 WBC Manual Slide Review Polychromasia Hypochromasia Poikilocytosis (manual Anisocytosis (manual) Macrocytosis PT (9.0-12.0) sec INR (<1.2) APTT (22.0-30.0) sec Sample Site Right Radial ABG pH 7.03 L* (7.35-7.45) ABG pCO2 <15 L* (35-45) mmHg ABG pO2 133 H (83-108) mmHg ABG O2 Saturation 97.9 H (94-97) % Frank Test Yes VBG pH 6.77 L* (7.31-7.41) VBG pCO2 15 L* (37-51) mmHg VBG HCO3 2 L* (24-28) mmol/L FiO2 28 % Sodium (137-145) mmol/L Potassium (3.5-5.1) mmol/L Chloride (98-107) mmol/L Carbon Dioxide (22-30) mmol/L Anion Gap mmol/L BUN (9-20) mg/dL Creatinine (0.66-1.25) mg/dL Est GFR (CKD-EPI)AfAm (>60 ml/min/1.73 sqM) Est GFR (CKD-EPI)NonAf (>60 ml/min/1.73 sqM) Glucose (74-99) mg/dL POC Glucose (mg/dL) (70-110) mg/dL POC Glu Inspector And Clipper ID Lactic Ac Sepsis Rflx Plasma Lactic Acid Len (0.7-2.0) mmol/L Calcium (8.4-10.2) mg/dL Total Bilirubin (0.2-1.3) mg/dL AST (17-59) U/L ALT (4-49) U/L Alkaline Phosphatase (38-126) U/L Total Protein (6.3-8.2) g/dL Albumin (3.5-5.0) g/dL Amylase (30-110) U/L Lipase (23-300) U/L Urine Color Urine Appearance (Clear) Urine pH (5.0-8.0) Ur Specific Alpine (1.001-1.035) Urine Protein (Negative) Urine Glucose (UA) (Negative) Urine Ketones (Negative) Urine Blood (Negative) Urine Nitrite (Negative) Urine Bilirubin (Negative) Urine Urobilinogen (<2.0) mg/dL Ur Leukocyte Esterase (Negative) Urine WBC (0-5) /hpf Ur Squamous Epith Cells (0-4) /hpf Urine Bacteria (None) /hpf Hyaline Casts (0-2) /lpf Granular Casts (0) /lpf Urine Mucus (None) /hpf Urine Opiates Screen (NotDetected) Ur Oxycodone Screen (NotDetected) Urine Methadone Screen (NotDetected) Ur Propoxyphene Screen (NotDetected) Ur Barbiturates Screen (NotDetected) U Tricyclic Antidepress (NotDetected) Ur Phencyclidine Scrn (NotDetected) Ur Amphetamines Screen (NotDetected) U Methamphetamines Scrn (NotDetected) U Benzodiazepines Scrn (NotDetected) Urine Cocaine Screen (NotDetected) U Marijuana (THC) Screen (NotDetected) Serum Alcohol mg/dL Acetone, Qual (Negative) Influenza Type A (PCR) Not Detected (Not Detectd) Influenza Type B (PCR) Not Detected (Not Detectd) RSV (PCR) Not Detected (Not Detectd) SARS-CoV-2 (PCR) Not Detected (Not Detectd) 03/07/23 03/07/23 Range/Units 04:05 04:09 WBC (3.8-10.6) k/uL RBC (4.30-5.90) m/uL Hgb (13.0-17.5) gm/dL Hct (39.0-53.0) % MCV (80.0-100.0) fL MCH (25.0-35.0) pg MCHC (31.0-37.0) g/dL RDW (11.5-15.5) % Plt Count (150-450) k/uL MPV Neutrophils % Neutrophils % (Manual) % Band Neuts % (Manual) % Lymphocytes % Lymphocytes % (Manual) % Monocytes % Monocytes % (Manual) % Eosinophils % Basophils % Metamyelocytes % % Myelocytes % % Neutrophils # Neutrophils # (Manual) (1.3-7.7) k/uL Lymphocytes # Lymphocytes # (Manual) (1.0-4.8) k/uL Monocytes # Monocytes # (Manual) (0-1.0) k/uL Eosinophils # Basophils # Metamyelocytes # (Man) (0) k/uL Myelocytes # (Manual) (0) k/uL Nucleated RBCs (0-0) /100 WBC Manual Slide Review Polychromasia Hypochromasia Poikilocytosis (manual Anisocytosis (manual) Macrocytosis PT (9.0-12.0) sec INR (<1.2) APTT (22.0-30.0) sec Sample Site ABG pH (7.35-7.45) ABG pCO2 (35-45) mmHg ABG pO2 (83-108) mmHg ABG O2 Saturation (94-97) % Frank Test VBG pH (7.31-7.41) VBG pCO2 (37-51) mmHg VBG HCO3 (24-28) mmol/L FiO2 % Sodium (137-145) mmol/L Potassium (3.5-5.1) mmol/L Chloride (98-107) mmol/L Carbon Dioxide (22-30) mmol/L Anion Gap mmol/L BUN (9-20) mg/dL Creatinine (0.66-1.25) mg/dL Est GFR (CKD-EPI)AfAm (>60 ml/min/1.73 sqM) Est GFR (CKD-EPI)NonAf (>60 ml/min/1.73 sqM) Glucose (74-99) mg/dL POC Glucose (mg/dL) (70-110) mg/dL POC Glu Inspector And Clipper ID Lactic Ac Sepsis Rflx Y Plasma Lactic Acid Len (0.7-2.0) mmol/L Calcium (8.4-10.2) mg/dL Total Bilirubin (0.2-1.3) mg/dL AST (17-59) U/L ALT (4-49) U/L Alkaline Phosphatase (38-126) U/L Total Protein (6.3-8.2) g/dL Albumin (3.5-5.0) g/dL Amylase (30-110) U/L Lipase (23-300) U/L Urine Color Urine Appearance (Clear) Urine pH (5.0-8.0) Ur Specific Alpine (1.001-1.035) Urine Protein (Negative) Urine Glucose (UA) (Negative) Urine Ketones (Negative) Urine Blood (Negative) Urine Nitrite (Negative) Urine Bilirubin (Negative) Urine Urobilinogen (<2.0) mg/dL Ur Leukocyte Esterase (Negative) Urine WBC (0-5) /hpf Ur Squamous Epith Cells (0-4) /hpf Urine Bacteria (None) /hpf Hyaline Casts (0-2) /lpf Granular Casts (0) /lpf Urine Mucus (None) /hpf Urine Opiates Screen Not Detected (NotDetected) Ur Oxycodone Screen Not Detected (NotDetected) Urine Methadone Screen Not Detected (NotDetected) Ur Propoxyphene Screen Not Detected (NotDetected) Ur Barbiturates Screen Not Detected (NotDetected) U Tricyclic Antidepress Not Detected (NotDetected) Ur Phencyclidine Scrn Not Detected (NotDetected) Ur Amphetamines Screen Not Detected (NotDetected) U Methamphetamines Scrn Not Detected (NotDetected) U Benzodiazepines Scrn Not Detected (NotDetected) Urine Cocaine Screen Not Detected (NotDetected) U Marijuana (THC) Screen Not Detected (NotDetected) Serum Alcohol mg/dL Acetone, Qual (Negative) Influenza Type A (PCR) (Not Detectd) Influenza Type B (PCR) (Not Detectd) RSV (PCR) (Not Detectd) SARS-CoV-2 (PCR) (Not Detectd) - EKG Data -: EKG Interpreted by Me EKG Comments: 12-lead Electrocardiogram Interpretation Note EKG was reviewed and interpreted by myself. 12-lead ECG performed at 0319 is interpreted by me as revealing sinus tachycardia at a rate of 148 beats per minute. Right axis deviation. OH interval is 180 ms, QRS duration is 124 ms, QTc is 318 ms. Patient has peaked T waves concerning for hyperkalemia.. There were no ST or T wave abnormalities to suggest myocardial ischemia or injury. R wave progression across the precordium was satisfactory. By my interpretation this EKG is non-diagnostic for acute ischemia. Critical Care Time Critical Care Time: Yes Total Critical Care Time: 42 Disposition Clinical Impression: DKA (diabetic ketoacidosis), SHANTEL (acute kidney injury), Dehydration, Poorly controlled type 1 diabetes mellitus, Hyperkalemia, High anion gap metabolic acidosis, Hypothermia, Confusion, Leukocytosis Disposition: ADMITTED IP TO THIS HOSP Condition: Serious Time of Disposition: 04:59
[2023-03-07 04:10] LABS: Carbon Dioxide <5 mmol/L (22-30); Glucose 1067 mg/dL (74-99); Potassium 7.2 mmol/L (3.5-5.1)
[2023-03-07] MEDS ORDERED: DEXTROSE 50% SYRINGE 50 ML IVP PRN ×2 (04:14)
[2023-03-07] MEDS ORDERED: Potassium Replacement Protocol 1 EACH MISC MISCELLANE PRN (04:14)
[2023-03-07] MEDS ORDERED: INSULIN REGULAR BOLUS (FROM DRIP BAG) IV ONE (04:14)
[2023-03-07] MEDS ORDERED: Magnesium Replacement Protocol 1 EACH MISC MISCELLANE PRN (04:14)
[2023-03-07] MEDS ORDERED: D5-0.45% NACL WITH KCL 20MEQ/L 1,000 ML IV SCH (04:15)
[2023-03-07] MEDS: INSULIN REGULAR 100 UNIT in SODIUM CHLORIDE 0.9% 100 ML IV SCH (04:34)
[2023-03-07] MEDS: SODIUM CHLORIDE 0.9% 1,000 ML IV SCH ×2 (04:38→09:20)
[2023-03-07 04:42] LABS: Appearance,Urine Clear (Clear); Bacteria,Urine Rare /hpf; Bilirubin,Urine Negative (Negative); Blood,Urine Trace (Negative); Color,Urine Colorless; Glucose,Urine (UA) 4+ (Negative); Granular Casts,Urine 6 /lpf (0); Hyaline Casts,Urine 18 /lpf (0-2); Leukocyte Esterase,Urine Negative (Negative); Mucus,Urine Rare /hpf; Nitrite,Urine Negative (Negative); Protein,Urine Trace (Negative); Specific Gravity,Urine 1.019 (1.001-1.035); Squamous Epithelial Cell,Urine <1 /hpf (0-4); Urobilinogen,Urine <2.0 mg/dL (<2.0); WBC,Urine 8 /hpf (0-5)
[2023-03-07 04:47] LABS: Amphetamine Screen,Urine Not Detected (NotDetected); Barbiturate Screen,Urine Not Detected (NotDetected); Benzodiazepines Screen,Urine Not Detected (NotDetected); Cocaine Screen,Urine Not Detected (NotDetected); Methadone Screen, Urine Not Detected (NotDetected); Opiate Screen,Urine Not Detected (NotDetected); Oxycodone Screen, Urine Not Detected (NotDetected); Phencyclidine Screen,Urine Not Detected (NotDetected); Tricyclic Antidepressant,Urine Not Detected (NotDetected); Urn Cannabinoid Scrn Not Detected (NotDetected)
[2023-03-07 04:49] LABS: MCV 106.8 fL (80.0-100.0)
[2023-03-07] MEDS ORDERED: NALOXONE 0.4 MG/ML 1 ML VIAL IV PRN (04:56)
[2023-03-07 04:57] LABS: Ketones,Urine 4+ (Negative)
[2023-03-07 05:27] LABS: Glucose,Whole Blood >600 mg/dL (70-110)
--- NOTE | 2023-03-07 05:57 | XR ---
EXAMINATION TYPE: XR chest 1V portable DATE OF EXAM: 03/07/2023 COMPARISON: Chest x-ray August 21, 2022 HISTORY: Chest and Abdominal pain. TECHNIQUE: Single frontal view of the chest is obtained. FINDINGS: There is no suspicious new focal air space opacity, pleural effusion, or pneumothorax seen . The cardiac silhouette size remains within normal limits. Overlying EKG leads redemonstrated. The osseous structures are intact. IMPRESSION: No acute process. No significant change from prior.
[2023-03-07 06:09] LABS: Band Neutrophils % 2 %; Lymphocytes # (M) 6.73 k/uL (1.0-4.8); Metamyelocytes # (M) 0.75 k/uL (0); Metamyelocytes % 2 %; Monocytes # (M) 2.99 k/uL (0-1.0); Myelocytes # (M) 0.37 k/uL (0); Myelocytes % 1 %; Neutrophils % (M) 70 %; Nucleated Red Blood Cells 0 /100 WBC (0-0); Total Cells Counted 200
[2023-03-07 06:12] LABS: Anisocytosis (M) Present
[2023-03-07 06:14] LABS: Polychromasia Present
[2023-03-07 06:17] LABS: Poikilocytosis (M) Present
[2023-03-07 06:27] LABS: Glucose,Whole Blood >600 mg/dL (70-110)
[2023-03-07 07:39] LABS: Glucose,Whole Blood 464 mg/dL (70-110)
[2023-03-07 08:35] LABS: African American GFR (CKD) 64 (>60 ml/min/1.73 sqM); Blood Urea Nitrogen 32 mg/dL (9-20); Chloride 115 mmol/L (98-107); Glucose 484 mg/dL (74-99); Non-African American GFR(CKD) 55 (>60 ml/min/1.73 sqM); Phosphorus 6.1 mg/dL (2.5-4.5); Potassium 5.1 mmol/L (3.5-5.1); Sodium 150 mmol/L (137-145)
[2023-03-07 08:38] LABS: Carbon Dioxide <5 mmol/L (22-30)
[2023-03-07 08:42] LABS: Glucose,Whole Blood 378 mg/dL (70-110)
[2023-03-07 09:30] VITALS: BMI 15.0
[2023-03-07 09:30] LABS: Glucose,Whole Blood 302 mg/dL (70-110)
[2023-03-07 10:50] LABS: Glucose,Whole Blood 189 mg/dL (70-110)
[2023-03-07] MEDS: D5-0.45% NACL WITH KCL 20MEQ/L 1,000 ML IV SCH ×2 (11:00→18:37)
[2023-03-07 12:02] LABS: Glucose,Whole Blood 164 mg/dL (70-110)
[2023-03-07 13:03] LABS: Glucose,Whole Blood 144 mg/dL (70-110)
[2023-03-07 14:07] LABS: Glucose,Whole Blood 149 mg/dL (70-110)
[2023-03-07 14:37] LABS: African American GFR (CKD) >90 (>60 ml/min/1.73 sqM); Anion Gap 17 mmol/L; Blood Urea Nitrogen 25 mg/dL (9-20); Carbon Dioxide 10 mmol/L (22-30); Chloride 112 mmol/L (98-107); Glucose 141 mg/dL (74-99); Non-African American GFR(CKD) >90 (>60 ml/min/1.73 sqM); Phosphorus 2.1 mg/dL (2.5-4.5); Potassium 4.2 mmol/L (3.5-5.1); Sodium 139 mmol/L (137-145)
--- NOTE | 2023-03-07 15:11 | P.CNPUL ---
History of Present Illness Consult date: 03/07/23 Requesting physician: Brown Valenzuela Reason for consult: other (DKA) Chief complaint: Nausea vomiting and abdominal pain History of present illness: This is a 27-year-old with history of type 1 diabetes, poor compliance, recurrent episodes of DKA almost on a weekly basis, patient presented to the ER with his usual symptoms of nausea vomiting, vague abdominal pain, patient was found to have hyperglycemia, significant anion gap metabolic acidosis, DKA with positive ketones, and significant hyperglycemia. Patient was seen in the ER, he is already on the DKA protocol, I evaluated the patient, and I recommended that the patient remains on the DKA protocol, and transferred to the ICU once a bed becomes available. Patient was noted to have leukocytosis with WBC count of 37.4 abnormal ABG with a pO2 of 133 pCO2 less than 15 a pH of 7.03, anion gap of 17 and positive ketones in the urine. Drug screen was negative Review of Systems ROS unobtainable: due to mental status Past Medical History Past Medical History: Asthma, Diabetes Mellitus, Neurologic Disorder, Skin Disorder Additional Past Medical History / Comment(s): IDDM type I, neuropathy bilateral feet, DKA, eczema. History of Any Multi-Drug Resistant Organisms: None Reported Past Surgical History: Adenoidectomy Additional Past Surgical History / Comment(s): 2002 Recent EGD- gastritis Past Anesthesia/Blood Transfusion Reactions: No Reported Reaction Past Psychological History: Anxiety, Depression Smoking Status: Never smoker, Vaper Past Alcohol Use History: None Reported Past Drug Use History: Marijuana - Past Family History Mother Family Medical History: CVA/TIA Additional Family Medical History / Comment(s): TIA Father Family Medical History: Hyperlipidemia, Hypertension Additional Family Medical History / Comment(s): . Medications and Allergies Home Medications Medication Instructions Recorded Confirmed Type Insulin Detemir (Levemir) [Levemir] 30 unit SQ DIRECTED 03/07/23 03/07/23 History Allergies Allergy/AdvReac Type Severity Reaction Status Date / Time No Known Allergies Allergy Verified 03/07/23 09:28 Physical Exam Vitals: Vital Signs Temp Pulse Resp BP Pulse Ox 03/07/23 12:02 96.8 F L 114 H 20 113/67 99 03/07/23 12:00 96.1 F L 107 H 18 124/81 100 03/07/23 10:30 95.7 F L 111 H 18 102/70 98 03/07/23 08:30 95.0 F L 101 H 127 H 97 03/07/23 07:30 94.1 F L 107 H 24 117/74 97 03/07/23 06:00 91.9 F L 110 H 24 110/72 98 03/07/23 05:00 90.9 F L 105 H 24 117/71 99 03/07/23 04:59 103 H 03/07/23 04:50 90.3 F L 102 H 24 123/76 98 03/07/23 04:49 101 H 03/07/23 04:35 90.0 F L 101 H 24 102/66 98 03/07/23 04:20 89.8 F L 97 24 100/55 97 03/07/23 04:11 95 24 94/44 98 03/07/23 03:12 91.2 F L 82 26 H 91/51 94 L Intake and Output 03/07/23 03/07/23 03/07/23 06:59 14:59 22:59 Intake Total 11.355 40.869 Output Total 1999 Balance 11.355 -1959.131 Intake: Intake, IV Titration 11.355 40.869 Amount Insulin Regular 100 unit 11.355 40.869 In Sodium Chloride 0.9% 100 ml @ 0.1 UNITS/KG/HR 5.498 mls/hr IV .[id number] [facility] Rx#:[id number] Output: Urine 1999 Other: Weight 54.431 kg 54.431 kg Physical Exam: Revealed a 27-year-old male , lethargic, does not verbalize and does not seem to be very cooperative Head: Atraumatic normocephalic. HEENT:[Neck is supple.] [No neck masses.] [No thyromegaly.] [No JVD.] Chest: [Clear throughout, no crackles, no rhonchi, no wheezes.] Cardiac Exam: [Normal S1 and S2, no S3 gallop, no murmur.] Abdomen: [Soft, nontender, no megaly, no rebound, no guarding, normal bowel sounds.] Extremities: [No clubbing, no edema, no cyanosis.] Neurological Exam: Patient is lethargic, very uncooperative, Acute: Depressed mood, flat affect, normal mental status. Results - Laboratory Findings CBC and BMP: 03/07/23 03:19 03/07/23 13:38 ABG ABG pH 7.03 (7.35-7.45) L* 03/07/23 03:45 ABG pCO2 <15 mmHg (35-45) L* 03/07/23 03:45 ABG pO2 133 mmHg (83-108) H 03/07/23 03:45 ABG O2 Saturation 97.9 % (94-97) H 03/07/23 03:45 PT/INR, D-dimer PT 10.3 sec (9.0-12.0) 03/07/23 03:19 INR 1.0 (<1.2) 03/07/23 03:19 Abnormal lab findings: Abnormal Labs 03/07/23 03/07/23 03/07/23 03:14 03:19 03:19 WBC 37.4 H RBC 4.11 L Hgb 12.1 L MCV 106.8 H D MCHC 27.6 L Plt Count 555 H Neutrophils # (Manual) 26.90 H Lymphocytes # (Manual) 6.73 H Monocytes # (Manual) 2.99 H Metamyelocytes # (Man) 0.75 H Myelocytes # (Manual) 0.37 H ABG pH ABG pCO2 ABG pO2 ABG O2 Saturation VBG pH VBG pCO2 VBG HCO3 Sodium Potassium Chloride Carbon Dioxide BUN Creatinine Glucose POC Glucose (mg/dL) >600 H Plasma Lactic Acid Len Phosphorus Total Protein Urine Protein Trace H Urine Glucose (UA) 4+ H Urine Ketones 4+ H Urine Blood Trace H Urine WBC 8 H Urine Bacteria Rare H Hyaline Casts 18 H Urine Mucus Rare H 03/07/23 03/07/23 03/07/23 03:19 03:19 03:19 WBC RBC Hgb MCV MCHC Plt Count Neutrophils # (Manual) Lymphocytes # (Manual) Monocytes # (Manual) Metamyelocytes # (Man) Myelocytes # (Manual) ABG pH ABG pCO2 ABG pO2 ABG O2 Saturation VBG pH 6.77 L* VBG pCO2 15 L* VBG HCO3 2 L* Sodium Potassium 7.2 H* Chloride 97 L Carbon Dioxide <5 L* BUN 36 H Creatinine 2.82 H Glucose 1067 H* POC Glucose (mg/dL) Plasma Lactic Acid Len 5.7 H* Phosphorus Total Protein 6.0 L Urine Protein Urine Glucose (UA) Urine Ketones Urine Blood Urine WBC Urine Bacteria Hyaline Casts Urine Mucus 03/07/23 03/07/23 03/07/23 03:45 05:27 06:26 WBC RBC Hgb MCV MCHC Plt Count Neutrophils # (Manual) Lymphocytes # (Manual) Monocytes # (Manual) Metamyelocytes # (Man) Myelocytes # (Manual) ABG pH 7.03 L* ABG pCO2 <15 L* ABG pO2 133 H ABG O2 Saturation 97.9 H VBG pH VBG pCO2 VBG HCO3 Sodium Potassium Chloride Carbon Dioxide BUN Creatinine Glucose POC Glucose (mg/dL) >600 H >600 H Plasma Lactic Acid Len Phosphorus Total Protein Urine Protein Urine Glucose (UA) Urine Ketones Urine Blood Urine WBC Urine Bacteria Hyaline Casts Urine Mucus 03/07/23 03/07/23 03/07/23 07:29 07:29 07:37 WBC RBC Hgb MCV MCHC Plt Count Neutrophils # (Manual) Lymphocytes # (Manual) Monocytes # (Manual) Metamyelocytes # (Man) Myelocytes # (Manual) ABG pH ABG pCO2 ABG pO2 ABG O2 Saturation VBG pH VBG pCO2 VBG HCO3 Sodium 150 H Potassium Chloride 115 H Carbon Dioxide <5 L* BUN 32 H Creatinine 1.69 H Glucose 484 H POC Glucose (mg/dL) 464 H Plasma Lactic Acid Len 2.8 H* Phosphorus 6.1 H Total Protein Urine Protein Urine Glucose (UA) Urine Ketones Urine Blood Urine WBC Urine Bacteria Hyaline Casts Urine Mucus 03/07/23 03/07/23 03/07/23 08:41 09:29 10:48 WBC RBC Hgb MCV MCHC Plt Count Neutrophils # (Manual) Lymphocytes # (Manual) Monocytes # (Manual) Metamyelocytes # (Man) Myelocytes # (Manual) ABG pH ABG pCO2 ABG pO2 ABG O2 Saturation VBG pH VBG pCO2 VBG HCO3 Sodium Potassium Chloride Carbon Dioxide BUN Creatinine Glucose POC Glucose (mg/dL) 378 H 302 H 189 H Plasma Lactic Acid Len Phosphorus Total Protein Urine Protein Urine Glucose (UA) Urine Ketones Urine Blood Urine WBC Urine Bacteria Hyaline Casts Urine Mucus 03/07/23 03/07/23 03/07/23 12:01 13:02 13:38 WBC RBC Hgb MCV MCHC Plt Count Neutrophils # (Manual) Lymphocytes # (Manual) Monocytes # (Manual) Metamyelocytes # (Man) Myelocytes # (Manual) ABG pH ABG pCO2 ABG pO2 ABG O2 Saturation VBG pH VBG pCO2 VBG HCO3 Sodium Potassium Chloride 112 H Carbon Dioxide 10 L BUN 25 H Creatinine Glucose 141 H POC Glucose (mg/dL) 164 H 144 H Plasma Lactic Acid Len Phosphorus 2.1 L Total Protein Urine Protein Urine Glucose (UA) Urine Ketones Urine Blood Urine WBC Urine Bacteria Hyaline Casts Urine Mucus 03/07/23 14:05 WBC RBC Hgb MCV MCHC Plt Count Neutrophils # (Manual) Lymphocytes # (Manual) Monocytes # (Manual) Metamyelocytes # (Man) Myelocytes # (Manual) ABG pH ABG pCO2 ABG pO2 ABG O2 Saturation VBG pH VBG pCO2 VBG HCO3 Sodium Potassium Chloride Carbon Dioxide BUN Creatinine Glucose POC Glucose (mg/dL) 149 H Plasma Lactic Acid Len Phosphorus Total Protein Urine Protein Urine Glucose (UA) Urine Ketones Urine Blood Urine WBC Urine Bacteria Hyaline Casts Urine Mucus - Diagnostic Findings Chest x-ray: image reviewed (Chest x-ray showed no evidence of active disease) Assessment and Plan Assessment: Impression: Acute diabetic ketoacidosis secondary to noncompliance and the patient has had multiple and ongoing issues with DKA and repeated hospitalizations. Discharged home on 11/21/2022 Anion gap metabolic acidosis secondary to DKA and new Leukocytosis secondary to above Hyperkalemia, improving Diabetes mellitus, type I, poor compliance, poor control Diabetic neuropathy Chronic and ongoing tobacco dependence History of vaping History of depression with previous suicide attempts History of anxiety Marijuana use Recommendation: Continue DKA protocol Continue insulin drip and IV fluids Transferred to ICU once a bed becomes available We'll continue to follow Time with Patient: Greater than 30
[2023-03-07 15:12] LABS: Glucose,Whole Blood 160 mg/dL (70-110)
[2023-03-07 16:06] LABS: Glucose,Whole Blood 174 mg/dL (70-110)
[2023-03-07 17:19] LABS: Glucose,Whole Blood 194 mg/dL (70-110)
[2023-03-07 18:33] LABS: Glucose,Whole Blood 228 mg/dL (70-110)
[2023-03-07 19:27] LABS: Glucose,Whole Blood 240 mg/dL (70-110)
[2023-03-07 20:39] LABS: Glucose,Whole Blood 253 mg/dL (70-110)
[2023-03-07 21:35] LABS: Glucose,Whole Blood 235 mg/dL (70-110)
[2023-03-07 22:42] LABS: Glucose,Whole Blood 207 mg/dL (70-110)
[2023-03-07 23:41] LABS: Glucose,Whole Blood 216 mg/dL (70-110)
--- NOTE | 2023-03-07 23:43 | HP ---
HISTORY AND PHYSICAL CHIEF COMPLAINT: DKA and hypothermia. HISTORY OF PRESENT ILLNESS: This gentleman left the hospital yesterday and was brought back in the morning of admission with ketoacidosis and hypothermia. REVIEW OF SYSTEMS: Not obtainable. Past medical history, family history, personal and social histories are detailed in his numerous previous admitting and discharge summaries. He goes home and does not take his insulin. PHYSICAL EXAMINATION: VITAL SIGNS: Blood pressure is 87/55 with a pulse of 115, respirations of 36, and he was hypothermic when he came in. HEAD, EARS, EYES, NOSE, MOUTH AND THROAT: Normal except for dry mucous membranes. CHEST: Clear. CARDIAC: Normal. ABDOMEN: Soft. EXTREMITIES: Normal. He is tachycardic. He is dehydrated. IMPRESSION: 1. Diabetic ketoacidosis. 2. Hypothermia. 3. Major depression. 4. Gastroparesis. 5. Peripheral neuropathy. PLAN: 1. Bedrest. 2. IV fluids. 3. Warming blanket. 4. Management of DKA. MMODL / IJN: [id number] /
[2023-03-08 00:46] LABS: African American GFR (CKD) >90 (>60 ml/min/1.73 sqM); Anion Gap 11 mmol/L; Blood Urea Nitrogen 17 mg/dL (9-20); Calcium 8.2 mg/dL (8.4-10.2); Carbon Dioxide 17 mmol/L (22-30); Chloride 108 mmol/L (98-107); Glucose 185 mg/dL (74-99); Non-African American GFR(CKD) >90 (>60 ml/min/1.73 sqM); Potassium 4.2 mmol/L (3.5-5.1); Sodium 136 mmol/L (137-145)
[2023-03-08 00:47] LABS: Glucose,Whole Blood 179 mg/dL (70-110)
[2023-03-08 02:09] LABS: Glucose,Whole Blood 163 mg/dL (70-110)
[2023-03-08] MEDS: D5-0.45% NACL WITH KCL 20MEQ/L 1,000 ML IV SCH ×3 (02:16→16:10)
[2023-03-08] MEDS: INSULIN REGULAR 100 UNIT in SODIUM CHLORIDE 0.9% 100 ML IV SCH (02:16)
[2023-03-08 03:15] LABS: Glucose,Whole Blood 170 mg/dL (70-110)
[2023-03-08 04:17] LABS: Glucose,Whole Blood 143 mg/dL (70-110)
[2023-03-08 04:55] LABS: HCT 31.2 % (39.0-53.0); HGB 10.3 gm/dL (13.0-17.5); Lymphocytes % (A) 11 %; Mean Platelet Volume 7.3; Neutrophils % (A) 80 %; Platelet Count 350 k/uL (150-450); RBC 3.55 m/uL (4.30-5.90); RDW 14.8 % (11.5-15.5); WBC 13.1 k/uL (3.8-10.6)
[2023-03-08 04:56] LABS: Basophils % (A) 0 %; Eosinophils # (A) 0.1 k/uL (0-0.7); Eosinophils % (A) 0 %; Lymphocytes # (A) 1.5 k/uL (1.0-4.8); Monocytes # (A) 0.8 k/uL (0-1.0); Monocytes % (A) 6 %; Neutrophils # (A) 10.6 k/uL (1.3-7.7)
[2023-03-08 05:04] LABS: MCV 87.8 fL (80.0-100.0)
[2023-03-08 05:08] LABS: African American GFR (CKD) >90 (>60 ml/min/1.73 sqM); Anion Gap 9 mmol/L; Blood Urea Nitrogen 16 mg/dL (9-20); Carbon Dioxide 17 mmol/L (22-30); Chloride 108 mmol/L (98-107); Glucose 144 mg/dL (74-99); Non-African American GFR(CKD) >90 (>60 ml/min/1.73 sqM); Potassium 3.5 mmol/L (3.5-5.1); Sodium 134 mmol/L (137-145)
[2023-03-08 05:22] LABS: Glucose,Whole Blood 161 mg/dL (70-110)
[2023-03-08 06:17] LABS: Glucose,Whole Blood 168 mg/dL (70-110)
[2023-03-08] MEDS: POTASSIUM CHLORIDE 10 MEQ in WATER FOR INJECTION 1 100ML.BAG IVPB SCH ×4 (06:29→13:22)
[2023-03-08] MEDS ORDERED: POTASSIUM BICARBONATE/CIT AC 20 MEQ TABLET.EFF NG-TUBE SCH (07:00)
[2023-03-08 07:03] LABS: Glucose,Whole Blood 187 mg/dL (70-110)
[2023-03-08 07:58] LABS: Glucose,Whole Blood 221 mg/dL (70-110)
[2023-03-08 09:01] LABS: Glucose,Whole Blood 216 mg/dL (70-110)
[2023-03-08 09:41] LABS: African American GFR (CKD) >90 (>60 ml/min/1.73 sqM); Anion Gap 11 mmol/L; Blood Urea Nitrogen 13 mg/dL (9-20); Carbon Dioxide 17 mmol/L (22-30); Chloride 106 mmol/L (98-107); Glucose 222 mg/dL (74-99); Non-African American GFR(CKD) >90 (>60 ml/min/1.73 sqM); Sodium 134 mmol/L (137-145)
[2023-03-08 10:13] LABS: Glucose,Whole Blood 224 mg/dL (70-110)
[2023-03-08 10:58] LABS: Glucose,Whole Blood 238 mg/dL (70-110)
[2023-03-08 11:38] LABS: Glucose,Whole Blood 210 mg/dL (70-110)
[2023-03-08 12:37] LABS: African American GFR (CKD) >90 (>60 ml/min/1.73 sqM); Anion Gap 9 mmol/L; Blood Urea Nitrogen 12 mg/dL (9-20); Calcium 8.2 mg/dL (8.4-10.2); Carbon Dioxide 18 mmol/L (22-30); Chloride 106 mmol/L (98-107); Glucose 188 mg/dL (74-99); Non-African American GFR(CKD) >90 (>60 ml/min/1.73 sqM); Potassium 4.2 mmol/L (3.5-5.1); Sodium 133 mmol/L (137-145)
--- NOTE | 2023-03-08 12:41 | P.PN ---
Subjective Progress Note Date: 03/08/23 Principal diagnosis: Acute DKA This is a 27-year-old with history of type 1 diabetes, poor compliance, recurrent episodes of DKA almost on a weekly basis, patient presented to the ER with his usual symptoms of nausea vomiting, vague abdominal pain, patient was found to have hyperglycemia, significant anion gap metabolic acidosis, DKA with positive ketones, and significant hyperglycemia. Patient was seen in the ER, he is already on the DKA protocol, I evaluated the patient, and I recommended that the patient remains on the DKA protocol, and transferred to the ICU once a bed becomes available. Patient was noted to have leukocytosis with WBC count of 37.4 abnormal ABG with a pO2 of 133 pCO2 less than 15 a pH of 7.03, anion gap of 17 and positive ketones in the urine. Drug screen was negative Reevaluated today on 03/08/2023, patient remains in the ICU, doing fairly well, remains on a insulin drip at 1.1 units per hour, his IV fluid is at 150 ML per hour D5 45, hence I'm recommending we change IV fluid to 0.9 discontinue insulin drip, started the patient on Levemir insulin and also on sliding scale coverage based on Accu-Cheks. His anion gap has closed, his bicarb is significantly improved, I believe the patient could even transfer later today out of the ICU. His bicarb today is 18 anion gap is 9 BUN is 12 creatinine 0.5 for blood sugar is 188 Objective - Vital Signs Vital signs: Vital Signs Temp 97.9 F 03/08/23 08:00 Pulse 95 03/08/23 11:00 Resp 19 03/08/23 11:00 BP 135/100 03/08/23 11:00 Pulse Ox 98 03/08/23 11:00 FiO2 Intake & Output 03/07/23 03/08/23 03/08/23 18:59 06:59 18:59 Intake Total 40.869 1377.171 950 Output Total 1999 630 295 Balance -1959.131 747.171 655 Weight 54.431 kg 68.7 kg Intake: Intake, IV Titration 40.869 1377.171 950 Amount D5-0.45% NaCl with KCl 1350 750 20Meq/l 1,000 ml @ 150 mls/hr IV .[id number] [facility] Rx# :[id number] Insulin Regular 100 unit 40.869 27.171 In Sodium Chloride 0.9% 100 ml @ 0.1 UNITS/KG/HR 5.498 mls/hr IV .[id number] [facility] Rx#:[id number] Potassium Chloride 10 meq 200 In Water For Injection 1 100ml.bag @ 100 mls/hr IVPB Q1HR [facility] Rx#: [id number] Output: Urine 2000 630 295 Other: Voiding Method Indwelling Catheter Indwelling Catheter - Exam Physical Exam: Revealed a 27-year-old white male in no distress Head: Atraumatic normocephalic HEENT:[Neck is supple.] [No neck masses.] [No thyromegaly.] [No JVD.] Chest: [Clear throughout, no crackles, no rhonchi, no wheezes.] Cardiac Exam: [Normal S1 and S2, no S3 gallop, no murmur.] Abdomen: [Soft, nontender, no megaly, no rebound, no guarding, normal bowel sounds.] Extremities: [No clubbing, no edema, no cyanosis.] Neurological Exam: Arousable, but nonverbal,, no gross focal neurologic deficit - Labs CBC & Chem 7: 03/08/23 04:26 03/08/23 12:08 Labs: Abnormal Lab Results - Last 24 Hours (Table) 03/07/23 03/07/23 03/07/23 Range/Units 13:02 13:38 14:05 WBC (3.8-10.6) k/uL RBC (4.30-5.90) m/uL Hgb (13.0-17.5) gm/dL Hct (39.0-53.0) % Neutrophils # (1.3-7.7) k/uL Sodium (137-145) mmol/L Chloride 112 H (98-107) mmol/L Carbon Dioxide 10 L (22-30) mmol/L BUN 25 H (9-20) mg/dL Creatinine (0.66-1.25) mg/dL Glucose 141 H (74-99) mg/dL POC Glucose (mg/dL) 144 H 149 H (70-110) mg/dL Calcium (8.4-10.2) mg/dL Phosphorus 2.1 L (2.5-4.5) mg/dL 03/07/23 03/07/23 03/07/23 Range/Units 15:10 16:04 17:18 WBC (3.8-10.6) k/uL RBC (4.30-5.90) m/uL Hgb (13.0-17.5) gm/dL Hct (39.0-53.0) % Neutrophils # (1.3-7.7) k/uL Sodium (137-145) mmol/L Chloride (98-107) mmol/L Carbon Dioxide (22-30) mmol/L BUN (9-20) mg/dL Creatinine (0.66-1.25) mg/dL Glucose (74-99) mg/dL POC Glucose (mg/dL) 160 H 174 H 194 H (70-110) mg/dL Calcium (8.4-10.2) mg/dL Phosphorus (2.5-4.5) mg/dL 03/07/23 03/07/23 03/07/23 Range/Units 18:31 19:25 20:37 WBC (3.8-10.6) k/uL RBC (4.30-5.90) m/uL Hgb (13.0-17.5) gm/dL Hct (39.0-53.0) % Neutrophils # (1.3-7.7) k/uL Sodium (137-145) mmol/L Chloride (98-107) mmol/L Carbon Dioxide (22-30) mmol/L BUN (9-20) mg/dL Creatinine (0.66-1.25) mg/dL Glucose (74-99) mg/dL POC Glucose (mg/dL) 228 H 240 H 253 H (70-110) mg/dL Calcium (8.4-10.2) mg/dL Phosphorus (2.5-4.5) mg/dL 03/07/23 03/07/23 03/07/23 Range/Units 21:34 22:39 23:40 WBC (3.8-10.6) k/uL RBC (4.30-5.90) m/uL Hgb (13.0-17.5) gm/dL Hct (39.0-53.0) % Neutrophils # (1.3-7.7) k/uL Sodium (137-145) mmol/L Chloride (98-107) mmol/L Carbon Dioxide (22-30) mmol/L BUN (9-20) mg/dL Creatinine (0.66-1.25) mg/dL Glucose (74-99) mg/dL POC Glucose (mg/dL) 235 H 207 H 216 H (70-110) mg/dL Calcium (8.4-10.2) mg/dL Phosphorus (2.5-4.5) mg/dL 03/08/23 03/08/23 03/08/23 Range/Units 00:22 00:46 02:07 WBC (3.8-10.6) k/uL RBC (4.30-5.90) m/uL Hgb (13.0-17.5) gm/dL Hct (39.0-53.0) % Neutrophils # (1.3-7.7) k/uL Sodium 136 L (137-145) mmol/L Chloride 108 H (98-107) mmol/L Carbon Dioxide 17 L (22-30) mmol/L BUN (9-20) mg/dL Creatinine (0.66-1.25) mg/dL Glucose 185 H (74-99) mg/dL POC Glucose (mg/dL) 179 H 163 H (70-110) mg/dL Calcium 8.2 L (8.4-10.2) mg/dL Phosphorus (2.5-4.5) mg/dL 03/08/23 03/08/23 03/08/23 Range/Units 03:14 04:15 04:26 WBC 13.1 H (3.8-10.6) k/uL RBC 3.55 L (4.30-5.90) m/uL Hgb 10.3 L (13.0-17.5) gm/dL Hct 31.2 L (39.0-53.0) % Neutrophils # 10.6 H (1.3-7.7) k/uL Sodium (137-145) mmol/L Chloride (98-107) mmol/L Carbon Dioxide (22-30) mmol/L BUN (9-20) mg/dL Creatinine (0.66-1.25) mg/dL Glucose (74-99) mg/dL POC Glucose (mg/dL) 170 H 143 H (70-110) mg/dL Calcium (8.4-10.2) mg/dL Phosphorus (2.5-4.5) mg/dL 03/08/23 03/08/23 03/08/23 Range/Units 04:26 05:21 06:15 WBC (3.8-10.6) k/uL RBC (4.30-5.90) m/uL Hgb (13.0-17.5) gm/dL Hct (39.0-53.0) % Neutrophils # (1.3-7.7) k/uL Sodium 134 L (137-145) mmol/L Chloride 108 H (98-107) mmol/L Carbon Dioxide 17 L (22-30) mmol/L BUN (9-20) mg/dL Creatinine 0.61 L (0.66-1.25) mg/dL Glucose 144 H (74-99) mg/dL POC Glucose (mg/dL) 161 H 168 H (70-110) mg/dL Calcium 8.0 L (8.4-10.2) mg/dL Phosphorus (2.5-4.5) mg/dL 03/08/23 03/08/23 03/08/23 Range/Units 07:02 07:56 08:35 WBC (3.8-10.6) k/uL RBC (4.30-5.90) m/uL Hgb (13.0-17.5) gm/dL Hct (39.0-53.0) % Neutrophils # (1.3-7.7) k/uL Sodium 134 L (137-145) mmol/L Chloride (98-107) mmol/L Carbon Dioxide 17 L (22-30) mmol/L BUN (9-20) mg/dL Creatinine 0.56 L (0.66-1.25) mg/dL Glucose 222 H (74-99) mg/dL POC Glucose (mg/dL) 187 H 221 H (70-110) mg/dL Calcium 8.0 L (8.4-10.2) mg/dL Phosphorus (2.5-4.5) mg/dL 03/08/23 03/08/23 03/08/23 Range/Units 09:00 10:12 10:55 WBC (3.8-10.6) k/uL RBC (4.30-5.90) m/uL Hgb (13.0-17.5) gm/dL Hct (39.0-53.0) % Neutrophils # (1.3-7.7) k/uL Sodium (137-145) mmol/L Chloride (98-107) mmol/L Carbon Dioxide (22-30) mmol/L BUN (9-20) mg/dL Creatinine (0.66-1.25) mg/dL Glucose (74-99) mg/dL POC Glucose (mg/dL) 216 H 224 H 238 H (70-110) mg/dL Calcium (8.4-10.2) mg/dL Phosphorus (2.5-4.5) mg/dL 03/08/23 03/08/23 Range/Units 11:36 12:08 WBC (3.8-10.6) k/uL RBC (4.30-5.90) m/uL Hgb (13.0-17.5) gm/dL Hct (39.0-53.0) % Neutrophils # (1.3-7.7) k/uL Sodium 133 L (137-145) mmol/L Chloride (98-107) mmol/L Carbon Dioxide 18 L (22-30) mmol/L BUN (9-20) mg/dL Creatinine 0.54 L (0.66-1.25) mg/dL Glucose 188 H (74-99) mg/dL POC Glucose (mg/dL) 210 H (70-110) mg/dL Calcium 8.2 L (8.4-10.2) mg/dL Phosphorus (2.5-4.5) mg/dL Assessment and Plan Assessment: Impression: Acute diabetic ketoacidosis secondary to noncompliance and the patient has had multiple and ongoing issues with DKA and repeated hospitalizations. Discharged home on 11/21/2022 Anion gap metabolic acidosis secondary to DKA and new Leukocytosis secondary to above Hyperkalemia, improving Diabetes mellitus, type I, poor compliance, poor control Diabetic neuropathy Chronic and ongoing tobacco dependence History of vaping History of depression with previous suicide attempts History of anxiety Marijuana use Recommendation: Change IV fluid to 0.9 normal saline at 75 mL/h Start Levemir insulin DC insulin drip infusion Start subcu insulin based on Accu-Cheks Could transfer out of the ICU later today We will continue to follow Time with Patient: Less than 30
[2023-03-08] MEDS ORDERED: DEXTROSE 50% SYRINGE 50 ML IVP PRN ×2 (12:47)
[2023-03-08] MEDS: INSULIN ASPART (NovoLOG) 100 UNIT/ML VIAL SQ SCH ×3 (13:23→21:09)
[2023-03-08] MEDS: INSULIN DETEMIR (LEVEMIR) 100 UNIT/ML SYR SQ SCH (14:21)
[2023-03-08 16:24] LABS: Glucose,Whole Blood 259 mg/dL (70-110)
[2023-03-08 21:03] LABS: Glucose,Whole Blood 96 mg/dL (70-110)
[2023-03-09 03:08] LABS: Glucose,Whole Blood 75 mg/dL (70-110)
[2023-03-09 04:31] LABS: HCT 31.8 % (39.0-53.0); HGB 10.8 gm/dL (13.0-17.5); MCH 29.7 pg (25.0-35.0); MCV 87.4 fL (80.0-100.0); Mean Platelet Volume 7.2; Platelet Count 324 k/uL (150-450); RBC 3.64 m/uL (4.30-5.90); RDW 14.5 % (11.5-15.5); WBC 9.8 k/uL (3.8-10.6)
[2023-03-09 04:43] LABS: African American GFR (CKD) >90 (>60 ml/min/1.73 sqM); Anion Gap 6 mmol/L; Blood Urea Nitrogen 6 mg/dL (9-20); Calcium 8.2 mg/dL (8.4-10.2); Carbon Dioxide 27 mmol/L (22-30); Chloride 100 mmol/L (98-107); Glucose 68 mg/dL (74-99); Non-African American GFR(CKD) >90 (>60 ml/min/1.73 sqM); Potassium 3.3 mmol/L (3.5-5.1); Sodium 133 mmol/L (137-145)
[2023-03-09] MEDS: POTASSIUM BICARBONATE/CIT AC 20 MEQ TABLET.EFF NG-TUBE SCH ×2 (06:08→07:02)
[2023-03-09 06:55] LABS: Glucose,Whole Blood 106 mg/dL (70-110)
[2023-03-09] MEDS: INSULIN ASPART (NovoLOG) 100 UNIT/ML VIAL SQ SCH ×4 (08:40→20:02)
[2023-03-09 12:03] LABS: Glucose,Whole Blood 223 mg/dL (70-110)
[2023-03-09] MEDS: D5-0.45% NACL WITH KCL 20MEQ/L 1,000 ML IV SCH (12:34)
--- NOTE | 2023-03-09 12:59 | P.PN ---
Subjective Progress Note Date: 03/09/23 Principal diagnosis: Acute DKA This is a 27-year-old with history of type 1 diabetes, poor compliance, recurrent episodes of DKA almost on a weekly basis, patient presented to the ER with his usual symptoms of nausea vomiting, vague abdominal pain, patient was found to have hyperglycemia, significant anion gap metabolic acidosis, DKA with positive ketones, and significant hyperglycemia. Patient was seen in the ER, he is already on the DKA protocol, I evaluated the patient, and I recommended that the patient remains on the DKA protocol, and transferred to the ICU once a bed becomes available. Patient was noted to have leukocytosis with WBC count of 37.4 abnormal ABG with a pO2 of 133 pCO2 less than 15 a pH of 7.03, anion gap of 17 and positive ketones in the urine. Drug screen was negative Reevaluated today on 03/08/2023, patient remains in the ICU, doing fairly well, remains on a insulin drip at 1.1 units per hour, his IV fluid is at 150 ML per hour D5 45, hence I'm recommending we change IV fluid to 0.9 discontinue insulin drip, started the patient on Levemir insulin and also on sliding scale coverage based on Accu-Cheks. His anion gap has closed, his bicarb is significantly improved, I believe the patient could even transfer later today out of the ICU. His bicarb today is 18 anion gap is 9 BUN is 12 creatinine 0.5 for blood sugar is 188 Reevaluated today on 03/09/2023, patient remains in the ICU, doing great, his anion gap has closed his CO2 is 27 patient is now on Levemir insulin 50 units daily and he is also on regular insulin as per Accu-Cheks patient is awake, he is in good spirits, his labs were all reviewed including CBC and basic metabolic profile his renal profile and his WBC count is down to 9.8. Blood sugar this morning is 223. Hence we'll transfer the patient to a regular medical floor Objective - Vital Signs Vital signs: Vital Signs Temp 97.9 F 03/09/23 09:00 Pulse 80 03/09/23 09:00 Resp 16 03/09/23 09:00 BP 134/103 03/09/23 09:00 Pulse Ox 100 03/09/23 09:00 FiO2 Intake & Output 03/08/23 03/09/23 03/09/23 18:59 06:59 18:59 Intake Total 1700.276 400 650 Output Total 995 2250 1250 Balance 705.276 -1850 -600 Intake: IV 150 0.9NS 150 Intake, IV Titration 1160.276 Amount D5-0.45% NaCl with KCl 950 20Meq/l 1,000 ml @ 50 mls /hr IV .Q20H [facility] Rx#: [id number] Insulin Regular 100 unit 10.276 In Sodium Chloride 0.9% 100 ml @ 0.1 UNITS/KG/HR 5.498 mls/hr IV .[id number] [facility] Rx#:[id number] Potassium Chloride 10 meq 200 In Water For Injection 1 100ml.bag @ 100 mls/hr IVPB Q1HR [facility] Rx#: [id number] Oral 540 400 500 Output: Urine 995 2250 1250 Other: Voiding Method Indwelling Catheter Indwelling Catheter Urinal # Voids 1 # Bowel Movements 2 - Exam Physical Exam: Revealed a 27-year-old white male in no distress, on room air. Head: Atraumatic normocephalic HEENT:[Neck is supple.] [No neck masses.] [No thyromegaly.] [No JVD.] Chest: [Clear throughout, no crackles, no rhonchi, no wheezes.] Cardiac Exam: [Normal S1 and S2, no S3 gallop, no murmur.] Abdomen: [Soft, nontender, no megaly, no rebound, no guarding, normal bowel sounds.] Extremities: [No clubbing, no edema, no cyanosis.] Neurological Exam: Alert and oriented 3 focal deficit - Labs CBC & Chem 7: 03/09/23 03:40 03/09/23 03:40 Labs: Abnormal Lab Results - Last 24 Hours (Table) 03/08/23 03/09/23 03/09/23 Range/Units 16:23 03:40 03:40 RBC 3.64 L (4.30-5.90) m/uL Hgb 10.8 L (13.0-17.5) gm/dL Hct 31.8 L (39.0-53.0) % Sodium 133 L (137-145) mmol/L Potassium 3.3 L (3.5-5.1) mmol/L BUN 6 L (9-20) mg/dL Glucose 68 L (74-99) mg/dL POC Glucose (mg/dL) 259 H (70-110) mg/dL Calcium 8.2 L (8.4-10.2) mg/dL 03/09/23 Range/Units 12:01 RBC (4.30-5.90) m/uL Hgb (13.0-17.5) gm/dL Hct (39.0-53.0) % Sodium (137-145) mmol/L Potassium (3.5-5.1) mmol/L BUN (9-20) mg/dL Glucose (74-99) mg/dL POC Glucose (mg/dL) 223 H (70-110) mg/dL Calcium (8.4-10.2) mg/dL Assessment and Plan Assessment: Impression: Acute diabetic ketoacidosis secondary to noncompliance and the patient has had multiple and ongoing issues with DKA and repeated hospitalizations. Discharged home on 11/21/2022 Anion gap metabolic acidosis secondary to DKA and new Leukocytosis secondary to above Hyperkalemia, improving Diabetes mellitus, type I, poor compliance, poor control Diabetic neuropathy Chronic and ongoing tobacco dependence History of vaping History of depression with previous suicide attempts History of anxiety Marijuana use Recommendation: Continue Levemir insulin Accu-Cheks and follow sliding scale coverage Could transfer out of the ICU later today We will continue to follow as needed. Time with Patient: Less than 30
[2023-03-09 16:43] LABS: Glucose,Whole Blood 168 mg/dL (70-110)
[2023-03-09 19:55] LABS: Glucose,Whole Blood 264 mg/dL (70-110)
[2023-03-09] MEDS: INSULIN DETEMIR (LEVEMIR) 100 UNIT/ML SYR SQ SCH (20:02)
[2023-03-09 21:33] VITALS: RESP 16
[2023-03-09 21:34] LABS: Glucose,Whole Blood 229 mg/dL (70-110)
[2023-03-10 03:34] LABS: Glucose,Whole Blood 52 mg/dL (70-110)
[2023-03-10 03:52] LABS: Glucose,Whole Blood 53 mg/dL (70-110)
[2023-03-10] MEDS: D5-0.45% NACL WITH KCL 20MEQ/L 1,000 ML IV SCH (03:53)
[2023-03-10 04:08] LABS: Glucose,Whole Blood 102 mg/dL (70-110)
[2023-03-10 04:51] LABS: Basophils % (A) 0 %; Eosinophils # (A) 0.1 k/uL (0-0.7); Eosinophils % (A) 1 %; HCT 36.3 % (39.0-53.0); HGB 11.6 gm/dL (13.0-17.5); Lymphocytes # (A) 2.9 k/uL (1.0-4.8); Lymphocytes % (A) 42 %; MCH 28.1 pg (25.0-35.0); MCHC 31.9 g/dL (31.0-37.0); MCV 88.2 fL (80.0-100.0); Mean Platelet Volume 7.4; Monocytes # (A) 0.5 k/uL (0-1.0); Monocytes % (A) 7 %; Neutrophils # (A) 3.4 k/uL (1.3-7.7); Neutrophils % (A) 48 %; Platelet Count 290 k/uL (150-450); RBC 4.12 m/uL (4.30-5.90); RDW 14.6 % (11.5-15.5)
[2023-03-10 05:20] LABS: African American GFR (CKD) >90 (>60 ml/min/1.73 sqM); Anion Gap 12 mmol/L; Blood Urea Nitrogen 11 mg/dL (9-20); Calcium 8.8 mg/dL (8.4-10.2); Carbon Dioxide 28 mmol/L (22-30); Chloride 99 mmol/L (98-107); Glucose 124 mg/dL (74-99); Non-African American GFR(CKD) >90 (>60 ml/min/1.73 sqM); Potassium 3.4 mmol/L (3.5-5.1); Sodium 139 mmol/L (137-145)
[2023-03-10 06:26] LABS: Glucose,Whole Blood 325 mg/dL (70-110)
[2023-03-10] MEDS: INSULIN ASPART (NovoLOG) 100 UNIT/ML VIAL SQ SCH (07:05)
[2023-03-10 10:48] VITALS: BP 139/97; PULSE 99; TEMP 98.8
--- NOTE | 2023-03-11 00:50 | PN ---
PROGRESS NOTE DATE OF SERVICE: 03/08/2023 CHIEF COMPLAINT: DKA and hypothermia. HISTORY OF PRESENT ILLNESS: This gentleman is still somewhat lethargic. Numbers are improving. Temperature is back to normal. He is still nauseated and vomiting. PHYSICAL EXAM: GENERAL: He is still dehydrated. HEENT: Head, ears, eyes, nose, mouth, and throat are normal. CHEST: Clear. CARDIAC: Demonstrates sinus tachycardia. ABDOMEN: Soft, nontender. IMPRESSION: 1. Diabetic ketoacidosis. 2. Hypothermia. 3. Depression. 4. Gastroparesis. 5. Probable neuropathy. PLAN: Continue with ICU management with antiemetics and IV fluids. MMODL / IJN: [id number] /
--- NOTE | 2023-03-11 04:04 | DS ---
DISCHARGE SUMMARY CHIEF COMPLAINT: Diabetic ketoacidosis and hypothermia. HISTORY OF PRESENT ILLNESS AND PHYSICAL EXAMINATION: Details of this man's history and physical can be found in the initial workup. LABORATORY STUDIES: While he was in the hospital, he had laboratory studies, details of which can be found in the laboratory section of his chart. COURSE IN THE HOSPITAL: After admission, he was placed on bedrest, started on intravenous fluids and placed in ICU on DKA protocol. He did have 24 hours of nausea and vomiting, this stopped when his diet was advanced and is doing well and felt he could go home on the . He was encouraged to take his insulin. FINAL DIAGNOSES: 1. Diabetic ketoacidosis. 2. Hypothermia. OPERATIONS: None. CONSULTATIONS: Intensive care unit. CONDITION: He is improved. MMBIANCA / ALDEN: [id number] /
--- NOTE | 2023-03-11 04:29 | PN ---
PROGRESS NOTE DATE OF SERVICE: 03/07/2023 CHIEF COMPLAINT: DKA. HISTORY OF PRESENT ILLNESS: This is a gentleman who is a little bit better, but he is still slightly nauseated. Potassium is slightly low as well. PHYSICAL EXAMINATION: HEART: He is in normal sinus rhythm. CHEST: Clear. CARDIAC: Normal. ABDOMEN: Soft, nontender, and bowel sounds are present. IMPRESSION: 1. Diabetic ketoacidosis. 2. Depression. 3. Gastroparesis. 4. Nausea and vomiting. PLAN: Slowly progress activity and he will probably be able to go home tomorrow. MMODL / IJN: [id number] /
--- NOTE | 2023-03-13 15:57 | CDI ---
Documentation Clarification Form Date: 03/13/2023 03:26:54 PM From: Serina Ingram RN, CCDS Email: [email or web address] Admit Date: 03/07/2023 04:58:00 AM Patient Name: Raul Marquez Visit Number: [id number] Discharge Date: 03/10/2023 10:30:00 AM ATTENTION: The Clinical Documentation Specialists (CDI) and [facility] Coding Staff appreciate your assistance in clarifying documentation. Please respond to the clarification below the line at the bottom and electronically sign. The CDI & [facility] Coding staff will review the response and follow-up if needed. Please note: Queries are made part of the Legal Health Record. If you have any questions, please contact the author of this message via ITS. Dr. Brown Valenzuela Your patient had DKA, hypothermia and elevated white count. Based on this information and the findings below, is there an additional diagnosis that is clinically appropriate for this patient? History/Risk Factors: type 1 diabetes, poor compliance, recurrent episodes of DKA almost on a weekly basis. Presented with nausea, vomiting and hypothermia. Admitted with DKA and hypothermia. Clinical Indicators: ED: "DKA, SHANTEL, Dehydration, poorly controlled type 1 diabetes mellitus, hyperkalemia, high anion gap metabolic acidosis, hypothermia, confusion, leukocytosis." H&P: "DKA and hypothermia." 03/07 Pulmonary consult: "Acute diabetic ketoacidosis secondary to noncompliance. Anion gap metabolic acidosis secondary to DKA. Leukocytosis secondary to above." 03/07-03/10 WBC: 37.4-13.1-9.8-7.0 03/07-03/10 Cr: 2.82-1.69-0.85-0.61 03/07 lactic acid: 5.7-2.8-0.8; UA 4+ glucose 4+ ketones, glucose 5697-478-591 VS: 03/07 Temp 91.2-89.8-90.0-95.0-97.5; 03/07 HR 101-105-111; 03/07 RR 26-24 Treatment: 1L 0.9 NS IV bolus x2 on 03/07 then 200mL/hr 03/07-10/14; Insulin drip 03/07-03/09; Reglan 5mg IVP x1 on 03/07; Sodium bicarbonate 50mL IV x1 on 03/07; Bear hugger and warm blankets on 03/07 Is there an additional diagnosis that is clinically appropriate for this patient? [ ] SIRS, due to DKA, with hypothermia and SHANTEL [ ] Other, please specify [ ] Unable to determine SIRS Criteria: 2 or more of the following may indicate SIRS -Temperature < 96.8F(36C) or > 101.0F (38.3C) -Heart Rate > 90 bpm -Respiratory Rate > 20 breaths/min or PaCO2 < 32 mmHg -White Blood Cell Count > 12,000 or < 4,000 cells/mm3 or > 10% bands MTDD
--- NOTE | 2023-03-13 16:03 | CDI ---
Documentation Clarification Form Date: 03/13/2023 03:57:40 PM From: Serina Ingram RN, CCDS Email: [email or web address] Admit Date: 03/07/2023 04:58:00 AM Patient Name: Raul Marquez Visit Number: [id number] Discharge Date: 03/10/2023 10:30:00 AM ATTENTION: The Clinical Documentation Specialists (CDI) and [facility] Coding Staff appreciate your assistance in clarifying documentation. Please respond to the clarification below the line at the bottom and electronically sign. The CDI & [facility] Coding staff will review the response and follow-up if needed. Please note: Queries are made part of the Legal Health Record. If you have any questions, please contact the author of this message via ITS. Dr. Brown Valenzuela Your patient had DKA, hypothermia and elevated Cr levels. Based on this information and the findings below, is there an additional diagnosis that is clinically appropriate for this patient? History/Risk Factors: type 1 diabetes, poor compliance, recurrent episodes of DKA almost on a weekly basis. Presented with nausea, vomiting and hypothermia. Admitted with DKA and hypothermia. Clinical Indicators: ED: "DKA, SHANTEL, Dehydration, poorly controlled type 1 diabetes mellitus, hyperkalemia, high anion gap metabolic acidosis, hypothermia, confusion, leukocytosis." H&P: "DKA and hypothermia." 03/07 Pulmonary consult: "Acute diabetic ketoacidosis secondary to noncompliance. Anion gap metabolic acidosis secondary to DKA. Leukocytosis secondary to above." 03/07-03/10 WBC: 37.4-13.1-9.8-7.0 03/07-03/10 Cr: 2.82-1.69-0.85-0.61 03/07 lactic acid: 5.7-2.8-0.8; UA 4+ glucose 4+ ketones, glucose [phone] VS: 03/07 Temp 91.2-89.8-90.0-95.0-97.5; 03/07 HR 101-105-111; 03/07 RR 26-24; 03/07 BP 91/51 Treatment: 1L 0.9 NS IV bolus x2 on 03/07 then 200mL/hr 03/07-03/08; Insulin drip 03/07-03/09; Reglan 5mg IVP x1 on 03/07; Sodium bicarbonate 50mL IV x1 on 03/07 Is there an additional diagnosis that is clinically appropriate for this patient? [ ] Acute Kidney Injury [ ] Unable to determine [ ] Other, please specify Reference: KDIGO SHANTEL Criteria An increase in serum creatinine by greater than or equal to 0.3 mg/dL within 48 hours; An increase in serum creatinine by greater than or equal to 1.5 times baseline, which is known or presumed to have occurred within the prior 7 days; A urine volume less than 0.5 ml/kg/h for 6 hours. When the baseline is unknown the lowest creatinine during admission assumed to be baseline MTDD
--- NOTE | 2023-03-28 16:11 | CDI ---
Documentation Clarification Form Date: 03/13/2023 03:26:00 PM From: Serina Ingram RN, CCDS Email: [email or web address] Admit Date: 03/07/2023 04:58:00 AM Patient Name: Raul Marquez Visit Number: [id number] Discharge Date: 03/10/2023 10:30:00 AM ATTENTION: The Clinical Documentation Specialists (CDI) and [facility] Coding Staff appreciate your assistance in clarifying documentation. Please respond to the clarification below the line at the bottom and electronically sign. The CDI & [facility] Coding staff will review the response and follow-up if needed. Please note: Queries are made part of the Legal Health Record. If you have any questions, please contact the author of this message via ITS. Dr. Jenna Montoya Your patient had DKA, hypothermia and elevated white count. Based on this information and the findings below, is there an additional diagnosis that is clinically appropriate for this patient? History/Risk Factors: type 1 diabetes, poor compliance, recurrent episodes of DKA almost on a weekly basis. Presented with nausea, vomiting and hypothermia. Admitted with DKA and hypothermia. Clinical Indicators: ED: "DKA, SHANTEL, Dehydration, poorly controlled type 1 diabetes mellitus, hyperkalemia, high anion gap metabolic acidosis, hypothermia, confusion, leukocytosis." H&P: "DKA and hypothermia." 03/07 Pulmonary consult: "Acute diabetic ketoacidosis secondary to noncompliance. Anion gap metabolic acidosis secondary to DKA. Leukocytosis secondary to above." 03/07-03/10 WBC: 37.4-13.1-9.8-7.0 03/07-03/10 Cr: 2.82-1.69-0.85-0.61 03/07 lactic acid: 5.7-2.8-0.8; UA 4+ glucose 4+ ketones, glucose [id number] VS: 03/07 Temp 91.2-89.8-90.0-95.0-97.5; 03/07 HR 101-105-111; 03/07 RR 26-24 Treatment: 1L 0.9 NS IV bolus x2 on 03/07 then 200mL/hr 03/07-03/08; Insulin drip 03/07-03/09; Reglan 5mg IVP x1 on 03/07; Sodium bicarbonate 50mL IV x1 on 03/07; Bear hugger and warm blankets on 03/07 Is there an additional diagnosis that is clinically appropriate for this patient? [ ] SIRS, due to DKA, with hypothermia and SHANTEL [ ] Other, please specify [ x] Unable to determine SIRS Criteria: 2 or more of the following may indicate SIRS -Temperature < 96.8F(36C) or > 101.0F (38.3C) -Heart Rate > 90 bpm -Respiratory Rate > 20 breaths/min or PaCO2 < 32 mmHg -White Blood Cell Count > 12,000 or < 4,000 cells/mm3 or > 10% bands MTDD
--- NOTE | 2023-03-28 16:13 | CDI ---
Documentation Clarification Form Date: 03/13/2023 03:57:00 PM From: Serina Ingram RN, CCDS Email: [email or web address] Admit Date: 03/07/2023 04:58:00 AM Patient Name: Raul Marquez Visit Number: [id number] Discharge Date: 03/10/2023 10:30:00 AM ATTENTION: The Clinical Documentation Specialists (CDI) and [facility] Coding Staff appreciate your assistance in clarifying documentation. Please respond to the clarification below the line at the bottom and electronically sign. The CDI & [facility] Coding staff will review the response and follow-up if needed. Please note: Queries are made part of the Legal Health Record. If you have any questions, please contact the author of this message via ITS. Dr. Jenna Montoya Your patient had DKA, hypothermia and elevated Cr levels. Based on this information and the findings below, is there an additional diagnosis that is clinically appropriate for this patient? History/Risk Factors: type 1 diabetes, poor compliance, recurrent episodes of DKA almost on a weekly basis. Presented with nausea, vomiting and hypothermia. Admitted with DKA and hypothermia. Clinical Indicators: ED: "DKA, SHANTEL, Dehydration, poorly controlled type 1 diabetes mellitus, hyperkalemia, high anion gap metabolic acidosis, hypothermia, confusion, leukocytosis." H&P: "DKA and hypothermia." 03/07 Pulmonary consult: "Acute diabetic ketoacidosis secondary to noncompliance. Anion gap metabolic acidosis secondary to DKA. Leukocytosis secondary to above." 03/07-03/10 WBC: 37.4-13.1-9.8-7.0 03/07-03/10 Cr: 2.82-1.69-0.85-0.61 03/07 lactic acid: 5.7-2.8-0.8; UA 4+ glucose 4+ ketones, glucose [id number] VS: 03/07 Temp 91.2-89.8-90.0-95.0-97.5; 03/07 HR 101-105-111; 03/07 RR 26-24; 03/07 BP 91/51 Treatment: 1L 0.9 NS IV bolus x2 on 03/07 then 200mL/hr 03/07-03/08; Insulin drip 03/07-03/09; Reglan 5mg IVP x1 on 03/07; Sodium bicarbonate 50mL IV x1 on 03/07 Is there an additional diagnosis that is clinically appropriate for this patient? [ ] Acute Kidney Injury [ ] Unable to determine [x ] Other, please specify __acute kidney injury secondary to dehydration and hypovolemia secondary to DKA Reference: KDIGO SHANTEL Criteria An increase in serum creatinine by greater than or equal to 0.3 mg/dL within 48 hours; An increase in serum creatinine by greater than or equal to 1.5 times baseline, which is known or presumed to have occurred within the prior 7 days; A urine volume less than 0.5 ml/kg/h for 6 hours. When the baseline is unknown the lowest creatinine during admission assumed to be baseline MTDD
== END 2023-03-10 10:30 | disposition home or self-care (01) | DRG 420 ==
LOC: EC 03:07 → 2SICU 04:58
PROVIDERS: ADMIT Family Medicine; ATTEND Family Medicine
DX: E10.10 Type 1 diabetes mellitus with ketoacidosis without coma (principal); Z20.822 Contact with and (suspected) exposure to COVID-19; D72.829 Elevated white blood cell count, unspecified; E10.43 Type 1 diabetes mellitus with diabetic autonomic (poly)neuropathy; E86.0 Dehydration; N17.9 Acute kidney failure, unspecified; E87.5 Hyperkalemia; T68.XXXA Hypothermia, initial encounter; F32.9 Major depressive disorder, single episode, unspecified; I10 Essential (primary) hypertension; F17.210 Nicotine dependence, cigarettes, uncomplicated; Z71.6 Tobacco abuse counseling; E10.42 Type 1 diabetes mellitus with diabetic polyneuropathy; Z91.51 Personal history of suicidal behavior; J45.909 Unspecified asthma, uncomplicated; L30.9 Dermatitis, unspecified; K31.84 Gastroparesis; Z79.4 Long term (current) use of insulin; Z91.199 Patient's noncompliance with other medical treatment and regimen due to unspecified reason
CPT/HCPCS: 36415; 36600; 71045; 80048; 80051; 80053; 80306; 80320; 81001; 82009; 82150; 82565; 82803; 82805; 82947; 83605; 83690; 84100; 84520; 85025; 85027; 85610; 85730; 87636; 93005; 94640; 96361; 96374; 96375; 96376; 99291

== ENCOUNTER 2023-03-12 09:57 | Inpatient (IN) | payer OTHER ==
[2023-03-12] MEDS ORDERED: SODIUM CHLORIDE 0.9% 2,000 ML IV STA (09:59)
[2023-03-12] MEDS ORDERED: METOCLOPRAMIDE 5 MG/ML 2 ML VIAL IVP STA (09:59)
[2023-03-12] MEDS ORDERED: diphenhydrAMINE 50 MG/ML 1 ML VIAL IVP STA (09:59)
[2023-03-12 10:36] LABS: HCT 47.4 % (39.0-53.0); HGB 12.7 gm/dL (13.0-17.5); Hypochromasia Marked; MCH 29.6 pg (25.0-35.0); MCHC 26.8 g/dL (31.0-37.0); MCV 110.6 fL (80.0-100.0); Macrocytosis Marked; Mean Platelet Volume 8.4; Platelet Count 613 k/uL (150-450); RBC 4.29 m/uL (4.30-5.90); RDW 14.8 % (11.5-15.5); WBC 40.2 k/uL (3.8-10.6)
[2023-03-12 10:45] LABS: ALT 25 U/L (4-49); AST 21 U/L (17-59); African American GFR (CKD) 35 (>60 ml/min/1.73 sqM); Albumin 4.5 g/dL (3.5-5.0); Alkaline Phosphatase 114 U/L (38-126); Blood Urea Nitrogen 35 mg/dL (9-20); Calcium 9.5 mg/dL (8.4-10.2); Chloride 90 mmol/L (98-107); Lipase 813 U/L (23-300); Magnesium 3.2 mg/dL (1.6-2.3); Non-African American GFR(CKD) 30 (>60 ml/min/1.73 sqM); Sodium 137 mmol/L (137-145); Total Bilirubin 0.4 mg/dL (0.2-1.3); Total Protein 6.6 g/dL (6.3-8.2)
[2023-03-12 10:48] LABS: VBG PH 6.87 (7.31-7.41)
[2023-03-12 11:03] LABS: Carbon Dioxide <5 mmol/L (22-30); Potassium 7.4 mmol/L (3.5-5.1)
[2023-03-12 11:05] LABS: Glucose 1233 mg/dL (74-99)
[2023-03-12] MEDS ORDERED: SODIUM CHLORIDE 0.9% 1,000 ML IV ONE (11:06)
[2023-03-12] MEDS ORDERED: INSULIN REGULAR BOLUS (FROM DRIP BAG) IV ONE (11:06)
[2023-03-12 11:11] LABS: Band Neutrophils % 4 %; Lymphocytes # (M) 5.23 k/uL (1.0-4.8); Metamyelocytes # (M) 1.21 k/uL (0); Metamyelocytes % 3 %; Myelocytes % 1 %; Neutrophils % (M) 76 %; Nucleated Red Blood Cells 0 /100 WBC (0-0); Total Cells Counted 200
--- NOTE | 2023-03-12 11:27 | ED ---
Recheck HPI - General Chief Complaint: Recheck/Abnormal Lab/Rx Stated Complaint: DKA,AMS Time Seen by Provider: 03/12/23 09:59 Source: patient, EMS, RN notes reviewed Mode of arrival: EMS Limitations: altered mental status - History of Present Illness Initial Comments: 27-year-old male presents emergency department via EMS chief complaint of hyperglycemia, confusion. Patient is well-known emergency department was recently discharged from the hospital 2 days ago for DKA. Patient is a known type I diabetic uncontrolled. Patient does have insulin but states is not using any denies any recent alcohol use he states he's been vomiting he states is ext remely dehydrated. Patient complains of diffuse abdominal pain. - Related Data Home Medications Medication Instructions Recorded Confirmed Insulin Detemir (Levemir) [Levemir] 30 unit SQ DIRECTED 03/07/23 03/12/23 Allergies Allergy/AdvReac Type Severity Reaction Status Date / Time No Known Allergies Allergy Verified 03/12/23 10:31 Review of Systems ROS Statement: Those systems with pertinent positive or pertinent negative responses have been documented in the HPI. ROS Other: All systems not noted in ROS Statement are negative. Past Medical History Past Medical History: Asthma, Diabetes Mellitus, Neurologic Disorder, Skin Disorder Additional Past Medical History / Comment(s): IDDM type I, neuropathy bilateral feet, DKA, eczema. History of Any Multi-Drug Resistant Organisms: None Reported Past Surgical History: Adenoidectomy Additional Past Surgical History / Comment(s): 2002 Recent EGD- gastritis Past Anesthesia/Blood Transfusion Reactions: No Reported Reaction Past Psychological History: Anxiety, Depression Smoking Status: Never smoker, Vaper Past Alcohol Use History: None Reported Past Drug Use History: Marijuana - Past Family History Mother Family Medical History: CVA/TIA Additional Family Medical History / Comment(s): TIA Father Family Medical History: Hyperlipidemia, Hypertension Additional Family Medical History / Comment(s): . General Exam Limitations: no limitations General appearance: alert, in no apparent distress Head exam: Present: atraumatic, normocephalic, normal inspection Eye exam: Present: normal appearance, PERRL, EOMI. Absent: scleral icterus, conjunctival injection, periorbital swelling ENT exam: Present: mucous membranes dry. Absent: normal exam, normal orophary nx, mucous membranes moist Neck exam: Present: normal inspection. Absent: tenderness, meningismus, lymphadenopathy Respiratory exam: Absent: normal lung sounds bilaterally, respiratory distress, wheezes, rales, rhonchi, stridor Cardiovascular Exam: Present: normal rhythm, tachycardia, normal heart sounds. Absent: systolic murmur, diastolic murmur, rubs, gallop, clicks GI/Abdominal exam: Present: soft, normal bowel sounds. Absent: distended, tenderness, guarding, rebound, rigid Neurological exam: Present: alert Course Vital Signs 03/12/23 03/12/23 03/12/23 10:00 10:33 10:45 Temperature 93.2 F L Pulse Rate 98 97 Respiratory 26 H 30 H 24 Rate Blood Pressure 109/68 95/64 O2 Sat by Pulse 100 99 Oximetry 03/12/23 03/12/23 11:08 14:40 Temperature Pulse Rate 95 113 H Respiratory 28 H 23 Rate Blood Pressure 97/54 104/77 O2 Sat by Pulse 100 99 Oximetry Medical Decision Making - Medical Decision Making Was pt. sent in by a medical professional or institution (, PA, LICENSED INSURANCE SALES AGENT, urgent care, hospital, or long-term...) When possible be specific @ -EMS. Prehospital treatment, vitals Did you speak to anyone other than the patient for history (EMS, parent, family, police, friend...)? What history was obtained from this source @ -[No] Did you review nursing and triage notes (agree or disagree)? Why? @ -[I reviewed and agree with nursing and triage notes] Were old charts reviewed (outside hosp., previous admission, EMS record, old EKG, old radiological studies, urgent care reports/EKG's, long-term records)? Report findings @ -[No old charts were reviewed] Differential Diagnosis (chest pain, altered mental status, abdominal pain women, abdominal pain men, vaginal bleeding, weakness, fever, dyspnea, syncope, headache, dizziness, GI bleed, back pain, seizure, CVA, palpatations, mental health, musculoskeletal)? @ -[DKA, hyperglycemia, nausea vomiting] EKG interpreted by me (3pts min.). @ -[As above] X-rays interpreted by me (1pt min.). @ -[None done] CT interpreted by me (1pt min.). @ -[None done] U/S interpreted by me (1pt. min.). @ -[None done] What testing was considered but not performed or refused? (CT, X-rays, U/S, labs)? Why? @ -[None] What meds were considered but not given or refused? Why? @ -[None] Did you discuss the management of the patient with other professionals (professionals i.e. , PA, LICENSED INSURANCE SALES AGENT, lab, RT, psych nurse, social worker delinquency prevention, trial lawyer, teacher, personnel officer, manager rn case)? Give summary @ -Dr. Gonzalez for ICU admission, Dr. Valenzuela h] Was smoking cessation discussed for >3mins.? @ -[No] Was critical care preformed (if so, how long)? @ -[35 minutes Were there social determinants of health that impacted care today? How? (Homelessness, low income, unemployed, alcoholism, drug addiction, transportation, low edu. Level, literacy, decrease access to med. care, care home, rehab)? @ -[No] Was there de-escalation of care discussed even if they declined (Discuss DNR or withdrawal of care, Hospice)? DNR status @ -[No] What co-morbidities impacted this encounter? (DM, HTN, Smoking, COPD, CAD, Cancer, CVA, ARF, Chemo, Hep., AIDS, mental health diagnosis, sleep apnea, morbid obesity)? @ -[Diabetes] Was patient admitted / discharged? Hospital course, mention meds given and route, prescriptions, significant lab abnormalities, going to OR and other pertinent info. @ -[Admitted patient's found to be severely acidotic, pH of 6.7 with a glucose at 1233 patient was started 3 L fluid bolus with maintenance fluids, insulin bolus and insulin drip. Patient was given 1 amp of sodium bicarb. Patient did have noted hyperkalemia this will be repeated. Patient case discussed with Dr. Gonzalez and Dr. Valenzuela patient be admitted ICU] Undiagnosed new problem with uncertain prognosis? @ -[No] Drug Therapy requiring intensive monitoring for toxicity (Heparin, Nitro, Insulin, Cardizem)? @ -[Insulin Were any procedures done? @ -[No] Diagnosis/symptom? @ -[DKA] Acute, or Chronic, or Acute on Chronic? @ -[Acute] Uncomplicated (without systemic symptoms) or Complicated (systemic symptoms)? @ -[Complicated] Side effects of treatment? @ -[No] Exacerbation, Progression, or Severe Exacerbation? @ -[No] Poses a threat to life or bodily function? How? (Chest pain, [place], [place], pneumonia, PE, COPD, DKA, ARF, appy, cholecystitis, CVA, Diverticulitis, Homicidal, Suicidal, threat to staff... and all critical care pts) @ -[Yes in DKA - Lab Data Result diagrams: 03/12/23 10:25 03/12/23 12:24 Lab Results 03/12/23 03/12/23 03/12/23 Range/Units 10:25 10: 10:25 WBC 40.2 H (3.8-10.6) k/uL RBC 4.29 L (4.30-5.90) m/uL Hgb 12.7 L (13.0-17.5) gm/dL Hct 47.4 (39.0-53.0) % MCV 110.6 H D (80.0-100.0) fL MCH 29.6 (25.0-35.0) pg MCHC 26.8 L (31.0-37.0) g/dL RDW 14.8 (11.5-15.5) % Plt Count 613 H D (150-450) k/uL MPV 8.4 Neutrophils % (Manual) 76 % Band Neuts % (Manual) 4 % Lymphocytes % (Manual) 13 % Monocytes % (Manual) 2 % Eosinophils % (Manual) 1 % Metamyelocytes % 3 % Myelocytes % 1 % Neutrophils # (Manual) 32.10 H (1.3-7.7) k/uL Lymphocytes # (Manual) 5.23 H (1.0-4.8) k/uL Monocytes # (Manual) 0.80 (0-1.0) k/uL Eosinophils # (Manual) 0.40 (0-0.7) k/uL Metamyelocytes # (Man) 1.21 H (0) k/uL Myelocytes # (Manual) 0.40 H (0) k/uL Nucleated RBCs 0 (0-0) /100 WBC Manual Slide Review Performed Hypochromasia Marked Macrocytosis Marked A VBG pH (7.31-7.41) VBG pCO2 (37-51) mmHg VBG HCO3 (24-28) mmol/L Sodium 137 (137-145) mmol/L Potassium 7.4 H* (3.5-5.1) mmol/L Chloride 90 L (98-107) mmol/L Carbon Dioxide <5 L* (22-30) mmol/L Anion Gap mmol/L BUN 35 H (9-20) mg/dL Creatinine 2.78 H (0.66-1.25) mg/dL Est GFR (CKD-EPI)AfAm 35 (>60 ml/min/1.73 sqM) Est GFR (CKD-EPI)NonAf 30 (>60 ml/min/1.73 sqM) Glucose 1233 H* (74-99) mg/dL Plasma Lactic Acid Len 7.1 H* (0.7-2.0) mmol/L Calcium 9.5 (8.4-10.2) mg/dL Magnesium 3.2 H (1.6-2.3) mg/dL Total Bilirubin 0.4 (0.2-1.3) mg/dL AST 21 (17-59) U/L ALT 25 (4-49) U/L Alkaline Phosphatase 114 (38-126) U/L Total Protein 6.6 (6.3-8.2) g/dL Albumin 4.5 (3.5-5.0) g/dL Lipase 813 H (23-300) U/L Acetone, Qual Positive (Negative) 03/12/23 Range/Units 10:25 WBC (3.8-10.6) k/uL RBC (4.30-5.90) m/uL Hgb (13.0-17.5) gm/dL Hct (39.0-53.0) % MCV (80.0-100.0) fL MCH (25.0-35.0) pg MCHC (31.0-37.0) g/dL RDW (11.5-15.5) % Plt Count (150-450) k/uL MPV Neutrophils % (Manual) % Band Neuts % (Manual) % Lymphocytes % (Manual) % Monocytes % (Manual) % Eosinophils % (Manual) % Metamyelocytes % % Myelocytes % % Neutrophils # (Manual) (1.3-7.7) k/uL Lymphocytes # (Manual) (1.0-4.8) k/uL Monocytes # (Manual) (0-1.0) k/uL Eosinophils # (Manual) (0-0.7) k/uL Metamyelocytes # (Man) (0) k/uL Myelocytes # (Manual) (0) k/uL Nucleated RBCs (0-0) /100 WBC Manual Slide Review Hypochromasia Macrocytosis VBG pH 6.87 L* (7.31-7.41) VBG pCO2 13 L* (37-51) mmHg VBG HCO3 2 L* (24-28) mmol/L Sodium (137-145) mmol/L Potassium (3.5-5.1) mmol/L Chloride (98-107) mmol/L Carbon Dioxide (22-30) mmol/L Anion Gap mmol/L BUN (9-20) mg/dL Creatinine (0.66-1.25) mg/dL Est GFR (CKD-EPI)AfAm (>60 ml/min/1.73 sqM) Est GFR (CKD-EPI)NonAf (>60 ml/min/1.73 sqM) Glucose (74-99) mg/dL Plasma Lactic Acid Len (0.7-2.0) mmol/L Calcium (8.4-10.2) mg/dL Magnesium (1.6-2.3) mg/dL Total Bilirubin (0.2-1.3) mg/dL AST (17-59) U/L ALT (4-49) U/L Alkaline Phosphatase (38-126) U/L Total Protein (6.3-8.2) g/dL Albumin (3.5-5.0) g/dL Lipase (23-300) U/L Acetone, Qual (Negative) - EKG Data -: EKG Interpreted by Me EKG Comments: EKG performed at 10:12 sinus rhythm with a rate of 96 MI 140 QRS 116 QTC is QTC 384/438 Critical Care Time Critical Care Time: Yes Total Critical Care Time: 35 Disposition Clinical Impression: DKA (diabetic ketoacidosis), Confusion, Vomiting, Dehydration, Leukocytosis Disposition: ADMITTED IP TO THIS [facility] Condition: Critical Time of Disposition: 11:27
[2023-03-12] MEDS ORDERED: SODIUM BICARB 8.4% 50 ML SYR (1 MEQ/ML) IV STA (11:41)
[2023-03-12] MEDS: SODIUM CHLORIDE 0.9% 1,000 ML IV SCH ×2 (12:16→16:47)
[2023-03-12] MEDS: INSULIN REGULAR 100 UNIT in SODIUM CHLORIDE 0.9% 100 ML IV SCH (12:20)
[2023-03-12 12:21] LABS: Glucose,Whole Blood >600 mg/dL (70-110)
[2023-03-12 13:10] LABS: African American GFR (CKD) 46 (>60 ml/min/1.73 sqM); Blood Urea Nitrogen 34 mg/dL (9-20); Chloride 102 mmol/L (98-107); Non-African American GFR(CKD) 39 (>60 ml/min/1.73 sqM); Sodium 144 mmol/L (137-145)
[2023-03-12 13:20] LABS: Glucose,Whole Blood >600 mg/dL (70-110)
[2023-03-12 13:44] LABS: Carbon Dioxide <5 mmol/L (22-30); Glucose 981 mg/dL (74-99); Potassium 6.6 mmol/L (3.5-5.1)
[2023-03-12 14:16] LABS: Glucose,Whole Blood >600 mg/dL (70-110)
[2023-03-12 15:12] LABS: Glucose,Whole Blood >600 mg/dL (70-110)
[2023-03-12 15:33] LABS: Appearance,Urine Clear (Clear); Bacteria,Urine Rare /hpf; Bilirubin,Urine Negative (Negative); Blood,Urine Trace (Negative); Color,Urine Colorless; Glucose,Urine (UA) 4+ (Negative); Leukocyte Esterase,Urine Negative (Negative); Mucus,Urine Rare /hpf; Nitrite,Urine Negative (Negative); Protein,Urine Trace (Negative); RBC,Urine <1 /hpf (0-5); Specific Gravity,Urine 1.019 (1.001-1.035); Squamous Epithelial Cell,Urine 1 /hpf (0-4); Urobilinogen,Urine <2.0 mg/dL (<2.0); WBC,Urine <1 /hpf (0-5)
[2023-03-12 15:36] LABS: Ketones,Urine 4+ (Negative)
[2023-03-12] MEDS ORDERED: Potassium Replacement Protocol 1 EACH MISC MISCELLANE PRN (15:36)
[2023-03-12] MEDS ORDERED: Magnesium Replacement Protocol 1 EACH MISC MISCELLANE PRN (15:36)
[2023-03-12 16:03] LABS: African American GFR (CKD) 66 (>60 ml/min/1.73 sqM); Blood Urea Nitrogen 33 mg/dL (9-20); Chloride 109 mmol/L (98-107); Non-African American GFR(CKD) 57 (>60 ml/min/1.73 sqM); Sodium 146 mmol/L (137-145)
[2023-03-12 16:03] LABS: Glucose,Whole Blood 488 mg/dL (70-110)
[2023-03-12 16:27] LABS: Glucose 651 mg/dL (74-99); Potassium 6.3 mmol/L (3.5-5.1)
[2023-03-12 16:28] LABS: Carbon Dioxide <5 mmol/L (22-30)
[2023-03-12 16:58] LABS: Glucose,Whole Blood 493 mg/dL (70-110)
--- NOTE | 2023-03-12 17:22 | P.CNPUL ---
History of Present Illness Consult date: 03/12/23 Requesting physician: Brown Valenzuela Reason for consult: other (Critical care management) Chief complaint: Abdominal pain, vomiting, hyperglycemia History of present illness: This is a 27-year-old male patient with a known history of diabetic neuropathy diabetes mellitus, type I, very poorly controlled and very noncompliant. He was just discharged from the hospital 2 days ago. He was brought back in today via EMS with hyperglycemia and confusion. He did state he has insulin but he has not been using it. He denied any alcohol use. Presenting labs included white count 40.2. Hemoglobin 12.7. Sodium 137. Potassium 7.4. Chloride 90. Bicarb less than 5. BUN 35. Creatinine 2.78. Glucose 1233. Lactic acid 7.1. Lipase 813. Acetone positive. He is seen today in consultation in the intensive care unit. He is awake. He is moaning. Holding his abdomen. He is on room air. Currently on insulin drip at 6.7 units per hour. He has normal saline running at 200 ML's per hour. Most recent labs reveal a sodium of 146. Potassium 6.3. Chloride 109. Bicarb less than 5. Unable to calculate anion gap. BUN 33. Creatinine 1.65. Glucose 651. Phosphorus 7.0. Review of Systems ROS unobtainable: due to mental status Past Medical History Past Medical History: Asthma, Diabetes Mellitus, Neurologic Disorder, Skin Disorder Additional Past Medical History / Comment(s): IDDM type I, neuropathy bilateral feet, DKA, eczema. History of Any Multi-Drug Resistant Organisms: None Reported Past Surgical History: Adenoidectomy Additional Past Surgical History / Comment(s): 2003 Recent EGD- gastritis Past Anesthesia/Blood Transfusion Reactions: No Reported Reaction Smoking Status: Unknown if ever smoked - Past Family History Mother Family Medical History: CVA/TIA Additional Family Medical History / Comment(s): TIA Father Family Medical History: Hyperlipidemia, Hypertension Additional Family Medical History / Comment(s): . Medications and Allergies Home Medications Medication Instructions Recorded Confirmed Type Insulin Detemir (Levemir) [Levemir] 30 unit SQ DIRECTED 03/07/23 03/12/23 History Allergies Allergy/AdvReac Type Severity Reaction Status Date / Time No Known Allergies Allergy Verified 03/12/23 10:31 Physical Exam Vitals: Vital Signs Temp Pulse Pulse Resp BP Pulse Ox 03/12/23 16:00 98.2 F 122 H 121 H 27 H 116/95 98 03/12/23 15:00 116 H 24 104/77 99 03/12/23 14:40 113 H 23 104/77 99 03/12/23 14:20 93.2 F L 99 28 H 105/53 100 03/12/23 11:08 95 28 H 97/54 100 03/12/23 10:45 97 24 95/64 99 03/12/23 10:33 93.2 F L 98 30 H 109/68 100 03/12/23 10:00 26 H Intake and Output 03/12/23 03/12/23 03/12/23 06:59 14:59 22:59 Intake Total 400 Output Total 1075 Balance -675 Intake: IV 400 Sodium Chloride 0.9% 1, 400 000 ml @ 200 mls/hr IV . Q5H [facility] Rx#:[id number] Output: Urine 1075 Other: Weight 67 kg 63.8 kg GENERAL EXAM: Arousable, moaning, restless 27-year-old male, on room air. HEAD: Normocephalic. EYES: Normal reaction of pupils, equal size. NOSE: Clear with pink turbinates. THROAT: No erythema or exudates. NECK: No masses, no JVD. CHEST: No chest wall deformity. LUNGS: Equal air entry with no crackles, wheeze, rhonchi or dullness. CVS: S1 and S2 normal with no audible murmur, regular rhythm. ABDOMEN: No hepatosplenomegaly, normal bowel sounds, no guarding or rigidity. SPINE: No scoliosis or deformity SKIN: No rashes CENTRAL NERVOUS SYSTEM: No focal deficits, tone is normal in all 4 extremities. EXTREMITIES: There is no peripheral edema. No clubbing, no cyanosis. Peripheral pulses are intact. Results - Laboratory Findings CBC and BMP: 03/12/23 10:25 03/12/23 15:27 Abnormal lab findings: Abnormal Labs 03/12/23 03/12/23 03/12/23 10:25 10:25 10:25 WBC 40.2 H RBC 4.29 L Hgb 12.7 L MCV 110.6 H D MCHC 26.8 L Plt Count 613 H D Neutrophils # (Manual) 32.10 H Lymphocytes # (Manual) 5.23 H Metamyelocytes # (Man) 1.21 H Myelocytes # (Manual) 0.40 H Macrocytosis Marked A VBG pH VBG pCO2 VBG HCO3 Sodium Potassium 7.4 H* Chloride 90 L Carbon Dioxide <5 L* BUN 35 H Creatinine 2.78 H Glucose 1233 H* POC Glucose (mg/dL) Plasma Lactic Acid Len 7.1 H* Phosphorus Magnesium 3.2 H Lipase 813 H Urine Protein Urine Glucose (UA) Urine Ketones Urine Blood Urine Bacteria Urine Mucus 03/12/23 03/12/23 03/12/23 10:25 12:15 12:24 WBC RBC Hgb MCV MCHC Plt Count Neutrophils # (Manual) Lymphocytes # (Manual) Metamyelocytes # (Man) Myelocytes # (Manual) Macrocytosis VBG pH 6.87 L* VBG pCO2 13 L* VBG HCO3 2 L* Sodium Potassium Chloride Carbon Dioxide BUN Creatinine Glucose POC Glucose (mg/dL) >600 H Plasma Lactic Acid Len Phosphorus 12.4 H* Magnesium Lipase Urine Protein Urine Glucose (UA) Urine Ketones Urine Blood Urine Bacteria Urine Mucus 03/12/23 03/12/23 03/12/23 12:24 13:14 14:10 WBC RBC Hgb MCV MCHC Plt Count Neutrophils # (Manual) Lymphocytes # (Manual) Metamyelocytes # (Man) Myelocytes # (Manual) Macrocytosis VBG pH VBG pCO2 VBG HCO3 Sodium Potassium 6.6 H* Chloride Carbon Dioxide <5 L* BUN 34 H Creatinine 2.24 H Glucose 981 H* POC Glucose (mg/dL) >600 H >600 H Plasma Lactic Acid Len Phosphorus Magnesium Lipase Urine Protein Urine Glucose (UA) Urine Ketones Urine Blood Urine Bacteria Urine Mucus 03/12/23 03/12/23 03/12/23 15:06 15:10 15:27 WBC RBC Hgb MCV MCHC Plt Count Neutrophils # (Manual) Lymphocytes # (Manual) Metamyelocytes # (Man) Myelocytes # (Manual) Macrocytosis VBG pH VBG pCO2 VBG HCO3 Sodium 146 H Potassium 6.3 H* Chloride 109 H Carbon Dioxide <5 L* BUN 33 H Creatinine 1.65 H Glucose 651 H* POC Glucose (mg/dL) >600 H Plasma Lactic Acid Len Phosphorus 7.0 H Magnesium Lipase Urine Protein Trace H Urine Glucose (UA) 4+ H Urine Ketones 4+ H Urine Blood Trace H Urine Bacteria Rare H Urine Mucus Rare H 03/12/23 03/12/23 16:02 16:56 WBC RBC Hgb MCV MCHC Plt Count Neutrophils # (Manual) Lymphocytes # (Manual) Metamyelocytes # (Man) Myelocytes # (Manual) Macrocytosis VBG pH VBG pCO2 VBG HCO3 Sodium Potassium Chloride Carbon Dioxide BUN Creatinine Glucose POC Glucose (mg/dL) 488 H 493 H Plasma Lactic Acid Len Phosphorus Magnesium Lipase Urine Protein Urine Glucose (UA) Urine Ketones Urine Blood Urine Bacteria Urine Mucus Assessment and Plan Assessment: Acute diabetic ketoacidosis secondary to noncompliance and the patient has had multiple and ongoing issues with DKA and repeated hospitalizations (37). Discharged home on 03/10/2023 Anion gap metabolic acidosis secondary to DKA Leukocytosis secondary to above Hyperkalemia, improving Diabetes mellitus, type I, poor compliance, poor control Diabetic neuropathy History of vaping History of depression with previous suicide attempts History of anxiety Marijuana use Plan: The patient was seen and evaluated Labs and medications reviewed Continue the DKA protocol Titrate the insulin drip as needed Continue saline at 200 ML's per hour Continue to monitor closely here in the intensive care unit We will continue to follow and make further recommendations based on his clinical status I have personally seen and examined the patient, performed the documentation and the assessment and plan as written. Number of minutes spent on the visit: 20.
[2023-03-12] MEDS: METOCLOPRAMIDE 5 MG/ML 2 ML VIAL IVP PRN ×2 (17:33→21:25)
[2023-03-12 17:59] LABS: Glucose,Whole Blood 355 mg/dL (70-110)
[2023-03-12 18:55] LABS: Glucose,Whole Blood 321 mg/dL (70-110)
[2023-03-12 20:16] LABS: Glucose,Whole Blood 203 mg/dL (70-110)
[2023-03-12] MEDS ORDERED: INSULIN DETEMIR (LEVEMIR) 100 UNIT/ML SYR SQ SCH (21:00)
[2023-03-12 21:13] LABS: Glucose,Whole Blood 176 mg/dL (70-110)
[2023-03-12] MEDS: D5-0.45% NACL WITH KCL 20MEQ/L 1,000 ML IV SCH (21:24)
[2023-03-12 22:19] LABS: Glucose,Whole Blood 154 mg/dL (70-110)
--- NOTE | 2023-03-13 05:39 | HP ---
HISTORY AND PHYSICAL CHIEF COMPLAINT: Diabetic ketoacidosis. HISTORY OF PRESENT ILLNESS: This is another admission for this 27-year-old white male who just went home 2 days ago. He came back in to the emergency room with a blood sugar of 1233, had a pH of 7.87, had a bicarb of 13. Potassium was 7 with a creatinine of 2.24. REVIEW OF SYSTEMS: Unobtainable. PAST MEDICAL HISTORY, FAMILY HISTORY AND PERSONAL AND SOCIAL HISTORIES: All unchanged. Clearly, he is not taking his insulin. PHYSICAL EXAMINATION: VITAL SIGNS: Blood pressure 108/55 with a pulse of 100, respirations of 36. GENERAL: This gentleman appeared to be dehydrated and lethargic. HEENT: Head, ears, nose, and mouth were normal. CHEST: Breath sounds are heard bilaterally. CARDIAC: Sinus. ABDOMEN: Soft. IMPRESSION: 1. DKA. 2. Type 1 insulin-dependent diabetes mellitus, out of control due to noncompliance. 3. Depression. 4. Gastroparesis. 5. Peripheral neuropathy. PLAN: ICU management for DKA. MMODL / IJN: [id number] /
[2023-03-13 05:41] LABS: Glucose,Whole Blood 136 mg/dL (70-110)
[2023-03-13 05:42] LABS: Glucose,Whole Blood 119 mg/dL (70-110)
[2023-03-13 05:42] LABS: Glucose,Whole Blood 154 mg/dL (70-110)
[2023-03-13 05:42] LABS: Glucose,Whole Blood 122 mg/dL (70-110)
[2023-03-13 05:42] LABS: Glucose,Whole Blood 82 mg/dL (70-110)
[2023-03-13 05:42] LABS: Glucose,Whole Blood 164 mg/dL (70-110)
[2023-03-13 05:42] LABS: Glucose,Whole Blood 105 mg/dL (70-110)
[2023-03-13 06:03] LABS: African American GFR (CKD) >90 (>60 ml/min/1.73 sqM); Anion Gap 17 mmol/L; Blood Urea Nitrogen 27 mg/dL (9-20); Calcium 8.8 mg/dL (8.4-10.2); Carbon Dioxide 16 mmol/L (22-30); Chloride 116 mmol/L (98-107); Glucose 138 mg/dL (74-99); Non-African American GFR(CKD) >90 (>60 ml/min/1.73 sqM); Potassium 4.6 mmol/L (3.5-5.1); Sodium 149 mmol/L (137-145)
[2023-03-13 06:11] LABS: Glucose,Whole Blood 218 mg/dL (70-110)
[2023-03-13 07:10] LABS: Glucose,Whole Blood 229 mg/dL (70-110)
[2023-03-13 07:43] LABS: Basophils # (A) 0.1 k/uL (0-0.2); Basophils % (A) 0 %; Eosinophils # (A) 0.1 k/uL (0-0.7); Eosinophils % (A) 0 %; HCT 32.6 % (39.0-53.0); HGB 10.7 gm/dL (13.0-17.5); Hypochromasia Slight; Lymphocytes % (A) 7 %; MCH 29.8 pg (25.0-35.0); MCHC 32.7 g/dL (31.0-37.0); Mean Platelet Volume 7.6; Monocytes # (A) 1.5 k/uL (0-1.0); Monocytes % (A) 5 %; Neutrophils # (A) 25.6 k/uL (1.3-7.7); Neutrophils % (A) 87 %; Platelet Count 497 k/uL (150-450); RBC 3.57 m/uL (4.30-5.90); RDW 15.2 % (11.5-15.5); WBC 29.4 k/uL (3.8-10.6)
[2023-03-13 08:11] LABS: African American GFR (CKD) >90 (>60 ml/min/1.73 sqM); Anion Gap 18 mmol/L; Blood Urea Nitrogen 25 mg/dL (9-20); Calcium 8.4 mg/dL (8.4-10.2); Carbon Dioxide 16 mmol/L (22-30); Chloride 113 mmol/L (98-107); Glucose 178 mg/dL (74-99); Non-African American GFR(CKD) >90 (>60 ml/min/1.73 sqM); Potassium 4.5 mmol/L (3.5-5.1); Sodium 147 mmol/L (137-145)
[2023-03-13 08:56] LABS: Glucose,Whole Blood 255 mg/dL (70-110)
[2023-03-13] MEDS: INSULIN REGULAR 100 UNIT in SODIUM CHLORIDE 0.9% 100 ML IV SCH (08:56)
[2023-03-13] MEDS: SODIUM CHLORIDE 0.9% 1,000 ML IV SCH ×5 (09:13→18:21)
[2023-03-13] MEDS: D5-0.45% NACL WITH KCL 20MEQ/L 1,000 ML IV SCH ×3 (09:15→16:10)
[2023-03-13] MEDS: PANTOPRAZOLE 40 MG/10 ML VIAL IV SCH (09:15)
[2023-03-13 10:22] LABS: Glucose,Whole Blood 286 mg/dL (70-110)
--- NOTE | 2023-03-13 11:59 | P.PN ---
Subjective Progress Note Date: 03/13/23 This is a 27-year-old male patient with a known history of diabetic neuropathy diabetes mellitus, type I, very poorly controlled and very noncompliant. He was just discharged from the hospital 2 days ago. He was brought back in today via EMS with hyperglycemia and confusion. He did state he has insulin but he has not been using it. He denied any alcohol use. Presenting labs included white count 40.2. Hemoglobin 12.7. Sodium 137. Potassium 7.4. Chloride 90. Bicarb less than 5. BUN 35. Creatinine 2.78. Glucose 1233. Lactic acid 7.1. Lipase 813. Acetone positive. He is seen today in consultation in the intensive care unit. He is awake. He is moaning. Holding his abdomen. He is on room air. Currently on insulin drip at 6.7 units per hour. He has normal saline running at 200 ML's per hour. Most recent labs reveal a sodium of 146. Potassium 6.3. Chloride 109. Bicarb less than 5. Unable to calculate anion gap. BUN 33. Creatinine 1.65. Glucose 651. Phosphorus 7.0. The patient is seen today 03/13/2023 in follow-up on the regular medical floor. Maintaining good O2 saturation in the upper 90s on room air. He is afebrile. Hemodynamically stable. He is more awake and alert today compared to yesterday. He is continued on a insulin drip at 1.8 units per hour. D5 0.45 normal saline with 20 KCl at 150 MLS per hour. White count 29.4. Hemoglobin 10.7. Platelets 497. Sodium 147. Potassium 4.5. Bicarb 16. Anion gap 18. BUN 25. Creatinine 0.74. Glucose 178. He remains on the DKA protocol. Objective - Vital Signs Vital signs: Vital Signs Temp 97.7 F 03/13/23 09:00 Pulse 106 H 03/13/23 09:00 Resp 17 03/13/23 09:00 BP 140/98 03/13/23 09:00 Pulse Ox 97 03/13/23 09:00 FiO2 Intake & Output 03/12/23 03/13/23 03/13/23 18:59 06:59 18:59 Intake Total 800 2050 703.714 Output Total 1525 1175 480 Balance -725 875 223.714 Weight 63.8 kg 63.8 kg 63.8 kg Intake: IV 800 400 450 D5-0.45% NaCl with KCl 450 20Meq/l 1,000 ml @ 150 mls/hr IV .[id number] [facility] Rx# :[id number] Sodium Chloride 0.9% 1, 800 400 000 ml @ 200 mls/hr IV . Q5H [facility] Rx#:[id number] Intake, IV Titration 1650 253.714 Amount D5-0.45% NaCl with KCl 1050 150 20Meq/l 1,000 ml @ 150 mls/hr IV .Q6H40M [facility] Rx# :[id number] Insulin Regular 100 unit 103.714 In Sodium Chloride 0.9% 100 ml @ 0.1 UNITS/KG/HR 6.767 mls/hr IV .[id number] [facility] Rx#:[id number] Sodium Chloride 0.9% 1, 600 000 ml @ 200 mls/hr IV . Q5H [facility] Rx#:[id number] Output: Urine 1525 1175 480 Other: Voiding Method Indwelling Catheter Urinal - Exam GENERAL EXAM: Alert, thin 27-year-old male patient, on room air, comfortable in no apparent distress. HEAD: Normocephalic. EYES: Normal reaction of pupils, equal size. NOSE: Clear with pink turbinates. THROAT: No erythema or exudates. NECK: No masses, no JVD. CHEST: No chest wall deformity. LUNGS: Equal air entry with no crackles, wheeze, rhonchi or dullness. CVS: S1 and S2 normal with no audible murmur, regular rhythm. ABDOMEN: No hepatosplenomegaly, normal bowel sounds, no guarding or rigidity. SPINE: No scoliosis or deformity SKIN: No rashes CENTRAL NERVOUS SYSTEM: No focal deficits, tone is normal in all 4 extremities. EXTREMITIES: There is no peripheral edema. No clubbing, no cyanosis. Peripheral pulses are intact. - Labs CBC & Chem 7: 03/13/23 06:17 03/13/23 06:17 Labs: Abnormal Lab Results - Last 24 Hours (Table) 03/12/23 03/12/23 03/12/23 Range/Units 10:25 12:15 12:24 WBC (3.8-10.6) k/uL RBC (4.30-5.90) m/uL Hgb (13.0-17.5) gm/dL Hct (39.0-53.0) % Plt Count (150-450) k/uL Neutrophils # (1.3-7.7) k/uL Monocytes # (0-1.0) k/uL Sodium (137-145) mmol/L Potassium (3.5-5.1) mmol/L Chloride (98-107) mmol/L Carbon Dioxide (22-30) mmol/L BUN (9-20) mg/dL Creatinine (0.66-1.25) mg/dL Glucose (74-99) mg/dL POC Glucose (mg/dL) >600 H (70-110) mg/dL Plasma Lactic Acid Len 7.1 H* (0.7-2.0) mmol/L Phosphorus 12.4 H* (2.5-4.5) mg/dL Urine Protein (Negative) Urine Glucose (UA) (Negative) Urine Ketones (Negative) Urine Blood (Negative) Urine Bacteria (None) /hpf Urine Mucus (None) /hpf 03/12/23 03/12/23 03/12/23 Range/Units 12:24 13:14 14:10 WBC (3.8-10.6) k/uL RBC (4.30-5.90) m/uL Hgb (13.0-17.5) gm/dL Hct (39.0-53.0) % Plt Count (150-450) k/uL Neutrophils # (1.3-7.7) k/uL Monocytes # (0-1.0) k/uL Sodium (137-145) mmol/L Potassium 6.6 H* (3.5-5.1) mmol/L Chloride (98-107) mmol/L Carbon Dioxide <5 L* (22-30) mmol/L BUN 34 H (9-20) mg/dL Creatinine 2.24 H (0.66-1.25) mg/dL Glucose 981 H* (74-99) mg/dL POC Glucose (mg/dL) >600 H >600 H (70-110) mg/dL Plasma Lactic Acid Len (0.7-2.0) mmol/L Phosphorus (2.5-4.5) mg/dL Urine Protein (Negative) Urine Glucose (UA) (Negative) Urine Ketones (Negative) Urine Blood (Negative) Urine Bacteria (None) /hpf Urine Mucus (None) /hpf 03/12/23 03/12/23 03/12/23 Range/Units 15:06 15:10 15:27 WBC (3.8-10.6) k/uL RBC (4.30-5.90) m/uL Hgb (13.0-17.5) gm/dL Hct (39.0-53.0) % Plt Count (150-450) k/uL Neutrophils # (1.3-7.7) k/uL Monocytes # (0-1.0) k/uL Sodium 146 H (137-145) mmol/L Potassium 6.3 H* (3.5-5.1) mmol/L Chloride 109 H (98-107) mmol/L Carbon Dioxide <5 L* (22-30) mmol/L BUN 33 H (9-20) mg/dL Creatinine 1.65 H (0.66-1.25) mg/dL Glucose 651 H* (74-99) mg/dL POC Glucose (mg/dL) >600 H (70-110) mg/dL Plasma Lactic Acid Len (0.7-2.0) mmol/L Phosphorus 7.0 H (2.5-4.5) mg/dL Urine Protein Trace H (Negative) Urine Glucose (UA) 4+ H (Negative) Urine Ketones 4+ H (Negative) Urine Blood Trace H (Negative) Urine Bacteria Rare H (None) /hpf Urine Mucus Rare H (None) /hpf 03/12/23 03/12/23 03/12/23 Range/Units 16:02 16:56 17:58 WBC (3.8-10.6) k/uL RBC (4.30-5.90) m/uL Hgb (13.0-17.5) gm/dL Hct (39.0-53.0) % Plt Count (150-450) k/uL Neutrophils # (1.3-7.7) k/uL Monocytes # (0-1.0) k/uL Sodium (137-145) mmol/L Potassium (3.5-5.1) mmol/L Chloride (98-107) mmol/L Carbon Dioxide (22-30) mmol/L BUN (9-20) mg/dL Creatinine (0.66-1.25) mg/dL Glucose (74-99) mg/dL POC Glucose (mg/dL) 488 H 493 H 355 H (70-110) mg/dL Plasma Lactic Acid Len (0.7-2.0) mmol/L Phosphorus (2.5-4.5) mg/dL Urine Protein (Negative) Urine Glucose (UA) (Negative) Urine Ketones (Negative) Urine Blood (Negative) Urine Bacteria (None) /hpf Urine Mucus (None) /hpf 03/12/23 03/12/23 03/12/23 Range/Units 18:53 20:15 21:11 WBC (3.8-10.6) k/uL RBC (4.30-5.90) m/uL Hgb (13.0-17.5) gm/dL Hct (39.0-53.0) % Plt Count (150-450) k/uL Neutrophils # (1.3-7.7) k/uL Monocytes # (0-1.0) k/uL Sodium (137-145) mmol/L Potassium (3.5-5.1) mmol/L Chloride (98-107) mmol/L Carbon Dioxide (22-30) mmol/L BUN (9-20) mg/dL Creatinine (0.66-1.25) mg/dL Glucose (74-99) mg/dL POC Glucose (mg/dL) 321 H 203 H 176 H (70-110) mg/dL Plasma Lactic Acid Len (0.7-2.0) mmol/L Phosphorus (2.5-4.5) mg/dL Urine Protein (Negative) Urine Glucose (UA) (Negative) Urine Ketones (Negative) Urine Blood (Negative) Urine Bacteria (None) /hpf Urine Mucus (None) /hpf 03/12/23 03/12/23 03/13/23 Range/Units 22:17 23:04 00:08 WBC (3.8-10.6) k/uL RBC (4.30-5.90) m/uL Hgb (13.0-17.5) gm/dL Hct (39.0-53.0) % Plt Count (150-450) k/uL Neutrophils # (1.3-7.7) k/uL Monocytes # (0-1.0) k/uL Sodium (137-145) mmol/L Potassium (3.5-5.1) mmol/L Chloride (98-107) mmol/L Carbon Dioxide (22-30) mmol/L BUN (9-20) mg/dL Creatinine (0.66-1.25) mg/dL Glucose (74-99) mg/dL POC Glucose (mg/dL) 154 H 136 H 154 H (70-110) mg/dL Plasma Lactic Acid Len (0.7-2.0) mmol/L Phosphorus (2.5-4.5) mg/dL Urine Protein (Negative) Urine Glucose (UA) (Negative) Urine Ketones (Negative) Urine Blood (Negative) Urine Bacteria (None) /hpf Urine Mucus (None) /hpf 03/13/23 03/13/23 03/13/23 Range/Units 00:15 00:59 03:43 WBC (3.8-10.6) k/uL RBC (4.30-5.90) m/uL Hgb (13.0-17.5) gm/dL Hct (39.0-53.0) % Plt Count (150-450) k/uL Neutrophils # (1.3-7.7) k/uL Monocytes # (0-1.0) k/uL Sodium 149 H (137-145) mmol/L Potassium (3.5-5.1) mmol/L Chloride 116 H (98-107) mmol/L Carbon Dioxide 16 L (22-30) mmol/L BUN 27 H (9-20) mg/dL Creatinine (0.66-1.25) mg/dL Glucose 138 H (74-99) mg/dL POC Glucose (mg/dL) 119 H 122 H (70-110) mg/dL Plasma Lactic Acid Len (0.7-2.0) mmol/L Phosphorus (2.5-4.5) mg/dL Urine Protein (Negative) Urine Glucose (UA) (Negative) Urine Ketones (Negative) Urine Blood (Negative) Urine Bacteria (None) /hpf Urine Mucus (None) /hpf 03/13/23 03/13/23 03/13/23 Range/Units 04:53 06:09 06:17 WBC 29.4 H (3.8-10.6) k/uL RBC 3.57 L (4.30-5.90) m/uL Hgb 10.7 L (13.0-17.5) gm/dL Hct 32.6 L (39.0-53.0) % Plt Count 497 H (150-450) k/uL Neutrophils # 25.6 H (1.3-7.7) k/uL Monocytes # 1.5 H (0-1.0) k/uL Sodium (137-145) mmol/L Potassium (3.5-5.1) mmol/L Chloride (98-107) mmol/L Carbon Dioxide (22-30) mmol/L BUN (9-20) mg/dL Creatinine (0.66-1.25) mg/dL Glucose (74-99) mg/dL POC Glucose (mg/dL) 164 H 218 H (70-110) mg/dL Plasma Lactic Acid Len (0.7-2.0) mmol/L Phosphorus (2.5-4.5) mg/dL Urine Protein (Negative) Urine Glucose (UA) (Negative) Urine Ketones (Negative) Urine Blood (Negative) Urine Bacteria (None) /hpf Urine Mucus (None) /hpf 03/13/23 03/13/23 03/13/23 Range/Units 06:17 07:09 08:54 WBC (3.8-10.6) k/uL RBC (4.30-5.90) m/uL Hgb (13.0-17.5) gm/dL Hct (39.0-53.0) % Plt Count (150-450) k/uL Neutrophils # (1.3-7.7) k/uL Monocytes # (0-1.0) k/uL Sodium 147 H (137-145) mmol/L Potassium (3.5-5.1) mmol/L Chloride 113 H (98-107) mmol/L Carbon Dioxide 16 L (22-30) mmol/L BUN 25 H (9-20) mg/dL Creatinine (0.66-1.25) mg/dL Glucose 178 H (74-99) mg/dL POC Glucose (mg/dL) 229 H 255 H (70-110) mg/dL Plasma Lactic Acid Len (0.7-2.0) mmol/L Phosphorus (2.5-4.5) mg/dL Urine Protein (Negative) Urine Glucose (UA) (Negative) Urine Ketones (Negative) Urine Blood (Negative) Urine Bacteria (None) /hpf Urine Mucus (None) /hpf 03/13/23 Range/Units 10:21 WBC (3.8-10.6) k/uL RBC (4.30-5.90) m/uL Hgb (13.0-17.5) gm/dL Hct (39.0-53.0) % Plt Count (150-450) k/uL Neutrophils # (1.3-7.7) k/uL Monocytes # (0-1.0) k/uL Sodium (137-145) mmol/L Potassium (3.5-5.1) mmol/L Chloride (98-107) mmol/L Carbon Dioxide (22-30) mmol/L BUN (9-20) mg/dL Creatinine (0.66-1.25) mg/dL Glucose (74-99) mg/dL POC Glucose (mg/dL) 286 H (70-110) mg/dL Plasma Lactic Acid Len (0.7-2.0) mmol/L Phosphorus (2.5-4.5) mg/dL Urine Protein (Negative) Urine Glucose (UA) (Negative) Urine Ketones (Negative) Urine Blood (Negative) Urine Bacteria (None) /hpf Urine Mucus (None) /hpf Assessment and Plan Assessment: Acute diabetic ketoacidosis secondary to noncompliance and the patient has had multiple and ongoing issues with DKA and repeated hospitalizations (37). Discharged home on 03/10/2023 Anion gap metabolic acidosis secondary to DKA, improving Leukocytosis secondary to above Hyperkalemia, improved Diabetes mellitus, type I, poor compliance, poor control Diabetic neuropathy History of vaping History of depression with previous suicide attempts History of anxiety Marijuana use Plan: The patient was seen and evaluated Labs and medications reviewed Continue the DKA protocol Titrate the insulin drip as needed Continue D5 and half normal saline with 20 KCl at 150 ML's per hour We will continue to follow I have personally seen and examined the patient, performed the documentation and the assessment and plan as written. Number of minutes spent on the visit: 10.
[2023-03-13 12:01] LABS: Glucose,Whole Blood 246 mg/dL (70-110)
[2023-03-13 12:45] LABS: ALT 20 U/L (4-49); AST 22 U/L (17-59); African American GFR (CKD) >90 (>60 ml/min/1.73 sqM); Albumin 3.1 g/dL (3.5-5.0); Alkaline Phosphatase 70 U/L (38-126); Anion Gap 14 mmol/L; Blood Urea Nitrogen 20 mg/dL (9-20); Calcium 8.3 mg/dL (8.4-10.2); Carbon Dioxide 16 mmol/L (22-30); Chloride 113 mmol/L (98-107); Glucose 258 mg/dL (74-99); Non-African American GFR(CKD) >90 (>60 ml/min/1.73 sqM); Sodium 143 mmol/L (137-145); Total Bilirubin 0.3 mg/dL (0.2-1.3); Total Protein 5.3 g/dL (6.3-8.2)
[2023-03-13 13:20] LABS: Glucose,Whole Blood 244 mg/dL (70-110)
[2023-03-13 14:53] LABS: MCV 91.2 fL (80.0-100.0)
[2023-03-13 15:12] LABS: Glucose,Whole Blood 154 mg/dL (70-110)
[2023-03-13 16:16] LABS: Glucose,Whole Blood 110 mg/dL (70-110)
[2023-03-13 16:50] LABS: African American GFR (CKD) >90 (>60 ml/min/1.73 sqM); Anion Gap 10 mmol/L; Blood Urea Nitrogen 19 mg/dL (9-20); Calcium 8.7 mg/dL (8.4-10.2); Carbon Dioxide 23 mmol/L (22-30); Chloride 112 mmol/L (98-107); Glucose 120 mg/dL (74-99); Non-African American GFR(CKD) >90 (>60 ml/min/1.73 sqM); Potassium 3.8 mmol/L (3.5-5.1); Sodium 145 mmol/L (137-145)
[2023-03-13 17:45] LABS: Glucose,Whole Blood 139 mg/dL (70-110)
[2023-03-13] MEDS ORDERED: DEXTROSE 50% SYRINGE 50 ML IVP PRN ×2 (18:08)
[2023-03-13] MEDS: INSULIN DETEMIR (LEVEMIR) 100 UNIT/ML SYR SQ SCH (20:05)
[2023-03-13 21:17] LABS: Glucose,Whole Blood 231 mg/dL (70-110)
[2023-03-13] MEDS: INSULIN ASPART (NovoLOG) 100 UNIT/ML VIAL SQ SCH (21:56)
[2023-03-14] MEDS: D5-0.45% NACL WITH KCL 20MEQ/L 1,000 ML IV SCH ×2 (01:48→07:47)
[2023-03-14 01:53] LABS: Glucose,Whole Blood 87 mg/dL (70-110)
[2023-03-14] MEDS: INSULIN REGULAR 100 UNIT in SODIUM CHLORIDE 0.9% 100 ML IV SCH (06:12)
[2023-03-14 06:24] LABS: Glucose,Whole Blood 69 mg/dL (70-110)
[2023-03-14 06:47] LABS: Glucose,Whole Blood 105 mg/dL (70-110)
[2023-03-14] MEDS: INSULIN ASPART (NovoLOG) 100 UNIT/ML VIAL SQ SCH ×4 (07:47→21:55)
[2023-03-14 08:14] LABS: African American GFR (CKD) >90 (>60 ml/min/1.73 sqM); Anion Gap 11 mmol/L; Blood Urea Nitrogen 12 mg/dL (9-20); Calcium 8.3 mg/dL (8.4-10.2); Carbon Dioxide 24 mmol/L (22-30); Chloride 99 mmol/L (98-107); Glucose 159 mg/dL (74-99); Non-African American GFR(CKD) >90 (>60 ml/min/1.73 sqM); Potassium 3.4 mmol/L (3.5-5.1); Sodium 134 mmol/L (137-145)
[2023-03-14] MEDS: POTASSIUM CHLORIDE ER 20 MEQ TAB.ER PO SCH ×2 (08:46→09:46)
[2023-03-14] MEDS: PANTOPRAZOLE 40 MG/10 ML VIAL IV SCH (08:46)
[2023-03-14 11:42] LABS: Glucose,Whole Blood 103 mg/dL (70-110)
--- NOTE | 2023-03-14 11:57 | P.PN ---
Subjective Progress Note Date: 03/14/23 This is a 27-year-old male patient with a known history of diabetic neuropathy diabetes mellitus, type I, very poorly controlled and very noncompliant. He was just discharged from the hospital 2 days ago. He was brought back in today via EMS with hyperglycemia and confusion. He did state he has insulin but he has not been using it. He denied any alcohol use. Presenting labs included white count 40.2. Hemoglobin 12.7. Sodium 137. Potassium 7.4. Chloride 90. Bicarb less than 5. BUN 35. Creatinine 2.78. Glucose 1233. Lactic acid 7.1. Lipase 813. Acetone positive. He is seen today in consultation in the intensive care unit. He is awake. He is moaning. Holding his abdomen. He is on room air. Currently on insulin drip at 6.7 units per hour. He has normal saline running at 200 ML's per hour. Most recent labs reveal a sodium of 146. Potassium 6.3. Chloride 109. Bicarb less than 5. Unable to calculate anion gap. BUN 33. Creatinine 1.65. Glucose 651. Phosphorus 7.0. The patient is seen today 03/13/2023 in follow-up on the regular medical floor. Maintaining good O2 saturation in the upper 90s on room air. He is afebrile. Hemodynamically stable. He is more awake and alert today compared to yesterday. He is continued on a insulin drip at 1.8 units per hour. D5 0.45 normal saline with 20 KCl at 150 MLS per hour. White count 29.4. Hemoglobin 10.7. Platelets 497. Sodium 147. Potassium 4.5. Bicarb 16. Anion gap 18. BUN 25. Creatinine 0.74. Glucose 178. He remains on the DKA protocol. The patient is seen today 03/14/2023 in follow-up on the regular medical floor. He is resting in bed. Maintaining good O2 saturations in the 90s on room air. No IV fluids. Sodium 134. Potassium 3.4. Bicarb 24. Anion gap 11. BUN 12. Creatinine 0.62. Glucose 159. He is tolerating a consistent carbohydrate diet. Currently on Levemir and NovoLog sliding scale. Objective - Vital Signs Vital signs: Vital Signs Temp 98.9 F 03/14/23 08:00 Pulse 81 03/14/23 08:00 Resp 13 03/14/23 08:00 BP 149/112 03/14/23 02:00 Pulse Ox 98 03/14/23 08:00 FiO2 Intake & Output 03/13/23 03/14/23 03/14/23 18:59 06:59 18:59 Intake Total 1922.147 452.182 Output Total 955 700 600 Balance 967.147 -247.818 -600 Weight 63.8 kg 70.5 kg 70.5 kg Intake: IV 1650 450 D5-0.45% NaCl with KCl 1650 450 20Meq/l 1,000 ml @ 150 mls/hr IV .Q6H40M YAEL Rx# :[id number] Intake, IV Titration 272.147 2.182 Amount D5-0.45% NaCl with KCl 150 20Meq/l 1,000 ml @ 150 mls/hr IV .Q6H40M YAEL Rx# :[id number] Insulin Regular 100 unit 122.147 2.182 In Sodium Chloride 0.9% 100 ml @ 0.1 UNITS/KG/HR 6.767 mls/hr IV .[id number] YAEL Rx#:[id number] Output: Urine 955 700 600 Other: Voiding Method Urinal Urinal Urinal # Voids 1 - Exam GENERAL EXAM: Alert, 27-year-old male patient, resting in bed, on room air, com fortable in no apparent distress. HEAD: Normocephalic. EYES: Normal reaction of pupils, equal size. NOSE: Clear with pink turbinates. THROAT: No erythema or exudates. NECK: No masses, no JVD. CHEST: No chest wall deformity. LUNGS: Equal air entry with no crackles, wheeze, rhonchi or dullness. CVS: S1 and S2 normal with no audible murmur, regular rhythm. ABDOMEN: No hepatosplenomegaly, normal bowel sounds, no guarding or rigidity. SPINE: No scoliosis or deformity SKIN: No rashes CENTRAL NERVOUS SYSTEM: No focal deficits, tone is normal in all 4 extremities. EXTREMITIES: There is no peripheral edema. No clubbing, no cyanosis. Peripheral pulses are intact. - Labs CBC & Chem 7: 03/13/23 06:17 03/14/23 07:36 Labs: Abnormal Lab Results - Last 24 Hours (Table) 03/13/23 03/13/23 03/13/23 Range/Units 11:24 11:59 13:18 Sodium (137-145) mmol/L Potassium (3.5-5.1) mmol/L Chloride 113 H (98-107) mmol/L Carbon Dioxide 16 L (22-30) mmol/L Creatinine (0.66-1.25) mg/dL Glucose 258 H (74-99) mg/dL POC Glucose (mg/dL) 246 H 244 H (70-110) mg/dL Calcium 8.3 L (8.4-10.2) mg/dL Total Protein 5.3 L (6.3-8.2) g/dL Albumin 3.1 L (3.5-5.0) g/dL 03/13/23 03/13/23 03/13/23 Range/Units 15:10 16:05 17:44 Sodium (137-145) mmol/L Potassium (3.5-5.1) mmol/L Chloride 112 H (98-107) mmol/L Carbon Dioxide (22-30) mmol/L Creatinine 0.61 L (0.66-1.25) mg/dL Glucose 120 H (74-99) mg/dL POC Glucose (mg/dL) 154 H 139 H (70-110) mg/dL Calcium (8.4-10.2) mg/dL Total Protein (6.3-8.2) g/dL Albumin (3.5-5.0) g/dL 03/13/23 03/14/23 03/14/23 Range/Units 21:05 06:23 07:36 Sodium 134 L (137-145) mmol/L Potassium 3.4 L (3.5-5.1) mmol/L Chloride (98-107) mmol/L Carbon Dioxide (22-30) mmol/L Creatinine 0.62 L (0.66-1.25) mg/dL Glucose 159 H (74-99) mg/dL POC Glucose (mg/dL) 231 H 69 L (70-110) mg/dL Calcium 8.3 L (8.4-10.2) mg/dL Total Protein (6.3-8.2) g/dL Albumin (3.5-5.0) g/dL Assessment and Plan Assessment: Acute diabetic ketoacidosis secondary to noncompliance and the patient has had multiple and ongoing issues with DKA and repeated hospitalizations (37). Discharged home on 03/10/2023 Anion gap metabolic acidosis secondary to DKA, recovered Leukocytosis secondary to above, improving Hyperkalemia, improved Diabetes mellitus, type I, poor compliance, poor control Diabetic neuropathy History of vaping History of depression with previous suicide attempts History of anxiety Marijuana use Plan: The patient was seen and evaluated Labs and medications reviewed Tolerating a consistent carbohydrate diet On Levemir and NovoLog scale Transfer out of the ICU today We will continue to follow I have personally seen and examined the patient, performed the documentation and the assessment and plan as written. Number of minutes spent on the visit: 10.
[2023-03-14 16:59] LABS: Glucose,Whole Blood 204 mg/dL (70-110)
[2023-03-14 21:15] LABS: Glucose,Whole Blood 343 mg/dL (70-110)
[2023-03-14] MEDS: INSULIN DETEMIR (LEVEMIR) 100 UNIT/ML SYR SQ SCH (22:09)
[2023-03-15 02:33] LABS: Glucose,Whole Blood 58 mg/dL (70-110)
[2023-03-15 02:57] LABS: Glucose,Whole Blood 43 mg/dL (70-110)
[2023-03-15 03:18] LABS: Glucose,Whole Blood 77 mg/dL (70-110)
--- NOTE | 2023-03-15 03:35 | PN ---
PROGRESS NOTE DATE OF SERVICE: 03/13/2023 CHIEF COMPLAINT: DKA. HISTORY OF PRESENT ILLNESS: This gentleman is dehydrated still. He is still quite lethargic and he is nauseated. His blood sugars are slowly coming down. PHYSICAL EXAMINATION: Other than his dehydration, his exam is normal. IMPRESSION: 1. Diabetic ketoacidosis. 2. Depression. 3. Gastroparesis. PLAN: Continue with management of his DKA until his gap is closed. MMODL / IJN: [id number] /
--- NOTE | 2023-03-15 03:41 | PN ---
PROGRESS NOTE DATE OF SERVICE: 03/14/2023 CHIEF COMPLAINT: DKA and history of depression. HISTORY OF PRESENT ILLNESS: This gentleman is improving. His numbers are improving. He has been transitioned to his long-acting insulin. REVIEW OF SYSTEMS: He is still slightly nauseated. His diet is being advanced. PHYSICAL EXAMINATION: CHEST: Clear. CARDIAC: Normal. VITAL SIGNS: Normal. IMPRESSION: 1. Diabetic ketoacidosis. 2. Dehydration. 3. Depression. PLAN: Continue to monitor blood sugars and increase his activity and diet. MMODL / IJN: [id number] /
[2023-03-15 05:39] LABS: African American GFR (CKD) >90 (>60 ml/min/1.73 sqM); Anion Gap 10 mmol/L; Blood Urea Nitrogen 8 mg/dL (9-20); Calcium 8.8 mg/dL (8.4-10.2); Carbon Dioxide 28 mmol/L (22-30); Chloride 99 mmol/L (98-107); Glucose 56 mg/dL (74-99); Non-African American GFR(CKD) >90 (>60 ml/min/1.73 sqM); Sodium 137 mmol/L (137-145)
[2023-03-15 06:02] LABS: Glucose,Whole Blood 75 mg/dL (70-110)
[2023-03-15] MEDS: POTASSIUM BICARBONATE/CIT AC 20 MEQ TABLET.EFF PO SCH ×2 (06:55→08:31)
[2023-03-15] MEDS ORDERED: POTASSIUM CHLORIDE ER 20 MEQ TAB.ER PO SCH (07:00)
[2023-03-15 08:19] LABS: Glucose,Whole Blood 94 mg/dL (70-110)
[2023-03-15] MEDS: INSULIN ASPART (NovoLOG) 100 UNIT/ML VIAL SQ SCH ×4 (08:30→21:02)
[2023-03-15] MEDS: PANTOPRAZOLE 40 MG/10 ML VIAL IV SCH (08:31)
[2023-03-15 12:30] LABS: Glucose,Whole Blood 92 mg/dL (70-110)
[2023-03-15] MEDS ORDERED: Potassium Replacement Protocol 1 EACH MISC MISCELLANE PRN (13:47)
[2023-03-15] MEDS: POTASSIUM BICARBONATE/CIT AC 20 MEQ TABLET.EFF NG-TUBE SCH ×2 (16:11→17:15)
[2023-03-15 17:07] LABS: Glucose,Whole Blood 172 mg/dL (70-110)
[2023-03-15] MEDS: METOCLOPRAMIDE 5 MG/ML 2 ML VIAL IVP PRN (19:54)
[2023-03-15 20:59] LABS: Glucose,Whole Blood 425 mg/dL (70-110)
[2023-03-15] MEDS: INSULIN DETEMIR (LEVEMIR) 100 UNIT/ML SYR SQ SCH (21:02)
[2023-03-16 02:53] LABS: Glucose,Whole Blood 154 mg/dL (70-110)
[2023-03-16 07:18] LABS: Glucose,Whole Blood 48 mg/dL (70-110)
[2023-03-16 07:55] LABS: Glucose,Whole Blood 104 mg/dL (70-110)
[2023-03-16] MEDS: INSULIN ASPART (NovoLOG) 100 UNIT/ML VIAL SQ SCH ×4 (08:46→21:01)
[2023-03-16] MEDS: PANTOPRAZOLE 40 MG/10 ML VIAL IV SCH (08:46)
[2023-03-16 12:04] LABS: Glucose,Whole Blood 201 mg/dL (70-110)
[2023-03-16 16:57] LABS: Glucose,Whole Blood 223 mg/dL (70-110)
[2023-03-16 20:49] LABS: Glucose,Whole Blood 126 mg/dL (70-110)
[2023-03-16] MEDS: INSULIN DETEMIR (LEVEMIR) 100 UNIT/ML SYR SQ SCH (20:55)
--- NOTE | 2023-03-17 01:41 | PN ---
PROGRESS NOTE DATE OF SERVICE: 03/16/2023 CHIEF COMPLAINT: DKA. HISTORY OF PRESENT ILLNESS: This gentleman is still having a little bit of nausea, but no vomiting. His numbers look quite good. Blood sugars fluctuate slightly. PHYSICAL EXAMINATION: CHEST: Clear. CARDIAC: Normal. ABDOMEN: Soft, nontender. IMPRESSION: 1. Diabetic ketoacidosis. 2. Depression. PLAN: Probably home in the next day or 2. MMODL / IJN: [id number] /
--- NOTE | 2023-03-17 01:56 | PN ---
PROGRESS NOTE DATE OF SERVICE: 03/15/2023 CHIEF COMPLAINT: DKA. HISTORY OF PRESENT ILLNESS: This gentleman is doing better. He has had a little bit of nausea. No vomiting. His gap is closed. . Blood sugars are under fairly good control. They are still fluctuating somewhat. PHYSICAL EXAMINATION: GENERAL: Hydration is better. Color is normal. CHEST: Clear. CARDIAC: Normal. ABDOMEN: Soft, nontender. IMPRESSION: 1. DKA. 2. Depression. PLAN: Advance diet and activity and discharge once he is completely stable. MMODL / IJN: [id number] /
[2023-03-17 02:14] LABS: Glucose,Whole Blood 154 mg/dL (70-110)
[2023-03-17 06:40] LABS: Glucose,Whole Blood 71 mg/dL (70-110)
[2023-03-17] MEDS: INSULIN ASPART (NovoLOG) 100 UNIT/ML VIAL SQ SCH ×2 (07:37→13:06)
[2023-03-17 07:40] LABS: Glucose,Whole Blood 93 mg/dL (70-110)
[2023-03-17 07:49] VITALS: PULSE 102
[2023-03-17] MEDS: PANTOPRAZOLE 40 MG/10 ML VIAL IV SCH (08:34)
--- NOTE | 2023-03-17 11:31 | CDI ---
Documentation Clarification Form Date: From: Aditi Jordan Phone: [phone] Admit Date: 03/12/2023 11:59:00 AM Patient Name: Raul Marquez Visit Number: [id number] Discharge Date: ATTENTION: The Clinical Documentation Specialists (CDI) and [facility] Coding Staff appreciate your assistance in clarifying documentation. Please respond to the clarification below the line at the bottom and electronically sign. The CDI & [facility] Coding staff will review the response and follow-up if needed. Please note: Queries are made part of the Legal Health Record. If you have any questions, please contact the author of this message via ITS. Dr. Brown Valenzuela Patient has a documented BMI of .17.6 on 03/13 and 19.4 on 03/14. Additional clarification is requested. History/Risk Factors: "27-year-old male presents emergency department via EMS chief complaint of hyperglycemia, confusion. Patient is well-known emergency department was recently discharged from the hospital 2 days ago for DKA. Patient is a known type I diabetic uncontrolled. " - Per ED Note on 03/12 Clinical Indicators: "poor caloric intake d/t NPO status/multiple hospitalization this year" "Pt is likely in malnutrition, unable to assess at this time d/t pt's refusal for interviews and participation to obtain accurate weight." - RD Assessment on 03/13 Patients weight is 63.8kg per RD Assessment on 03/13 Patients height is 6ft 3in per RD Assessment on 03/13 Calculated BMI is 17.6 Treatments: RD Consult, transition to PO nutrition, Glucerna TID with diet advancement - Per RD Note on 03/13 Please clarify, is there is an additional diagnosis that is clinically appropriate for this patient? [ ] Cachexia [ ] Underweight [ ] Malnutrition, (further specify severity and type) [ ] Other, please specify [ ] Unable to determine MTDD
[2023-03-17 12:02] VITALS: BP 100/68; RESP 18; TEMP 98
[2023-03-17 12:03] VITALS: BMI 19.8
[2023-03-17 12:31] LABS: Glucose,Whole Blood 216 mg/dL (70-110)
--- NOTE | 2023-03-19 09:22 | CDI ---
Documentation Clarification Form Date: 03/19/2023 From: Gerda Lr Admit Date: 03/12/2023 11:59:00 AM Patient Name: Raul Marquez Visit Number: [id number] Discharge Date: 03/17/2023 02:15:00 PM ATTENTION: The Clinical Documentation Specialists (CDI) and [facility] Coding Staff appreciate your assistance in clarifying documentation. Please respond to the clarification below the line at the bottom and electronically sign. The CDI & [facility] Coding staff will review the response and follow-up if needed. Please note: Queries are made part of the Legal Health Record. If you have any questions, please contact the author of this message via ITS. Dr. Brown Valenzuela, Your patient has elevated Creatinine: 03/12: 2.78, 2.2, 1.65; 03/13: 0.90, 0.74, 0.67, 0.61; 03/14: 0.62, 0.60. Based on this information and the findings below, is there an additional diagnosis that is clinically appropriate for this patient? Patient history/risk factors: T1DM from noncompliance from underdosing Clinical Indicators: Creatinine: 03/12: 2.78, 2.2, 1.65; 03/13: 0.90, 0.74, 0.67, 0.61; 03/14: 0.62, 0.60. Treatment: IV fluids Is there an additional diagnosis that is clinically appropriate for this patient? [ ] Acute kidney injury [ ] No additional diagnosis/Not clinically significant [ ] Unable to determine [ ] Other, please specify MTDD
--- NOTE | 2023-03-20 06:35 | DS ---
DISCHARGE SUMMARY CHIEF COMPLAINT: DKA. HISTORY OF PRESENT ILLNESS AND PHYSICAL EXAM: Details of this man's history and physical can be found in the initial workup. COURSE IN HOSPITAL: After admission, he was placed on bedrest and started on management of his DKA as usual. Blood sugars came down, gap closed, he is doing well. He became more awake and alert and his diet and activity were advanced and he was stable and it was felt that he could go home on . FINAL DIAGNOSES: 1. Diabetic ketoacidosis. 2. Type 1 insulin-dependent diabetes mellitus. 3. Depression. 4. Gastroparesis. 5. Peripheral neuropathy. 6. Major depression. OPERATIONS: None. CONSULTATIONS: Intensive Medicine. MMODL / IJN: [id number] /
--- NOTE | 2023-03-20 13:46 | CDI ---
Documentation Clarification Form Date: 03/19/2023 From: Bella Cid Admit Date: 03/12/2023 11:59:00 AM Patient Name: Raul Marquez Visit Number: [id number] Discharge Date: 03/17/2023 02:15:00 PM ATTENTION: The Clinical Documentation Specialists (CDI) and [facility] Coding Staff appreciate your assistance in clarifying documentation. Please respond to the clarification below the line at the bottom and electronically sign. The CDI & [facility] Coding staff will review the response and follow-up if needed. Please note: Queries are made part of the Legal Health Record. If you have any questions, please contact the author of this message via ITS. Dr. Gene Gonzalez Your patient has leukocytosis secondary to DKA, elevated heart rate and abnormal kidney labs. Based on this information and the findings below, is there an additional diagnosis that is clinically appropriate for this patient? History/Risk Factors: 27yo w/ DM type 1, noncompliance with insulin and frequent admissions for DKA. Clinical Indicators: Per the ER record, the patient was admitted for DKA, confusion, dehydration and leukocytosis. Labs 03/12: WBC 40.2, K 7.4, BUN 35, Creat 2.78, gluc 1233, LA 7.1 VBG 03/12 pH 6.87, pCO2 13, HCO3 2 VS 03/12 @ 1033: temp 93.2, HR 98, RR 30, BP 109/68 Treatment: insulin gtt, 3L IV fluid bolus, 1 amp sodium bicarb, Novolog subQ, Levemir subQ, K-Lyte po Is there an additional diagnosis that is clinically appropriate for this patient? [ ] SIRS, due to DKA, without acute organ dysfunction [ ] SIRS, due to DKA, with confusion and abnormal kidney labs [ x ] Other, please specify [ ] Unable to determine SIRS Criteria: 2 or more of the following may indicate SIRS -Temperature < 96.8F(36C) or > 101.0F (38.3C) -Heart Rate > 90 bpm -Respiratory Rate > 20 breaths/min or PaCO2 < 32 mmHg -White Blood Cell Count > 12,000 or < 4,000 cells/mm3 or > 10% bands (Template Last Revised: July 2020) ____Stress leukocytosis ___ MTDD
== END 2023-03-17 14:15 | disposition home or self-care (01) | DRG 420 ==
LOC: EC 09:57 → 2SICU 11:59 → 5NMEDONC 03-15 06:41
PROVIDERS: ADMIT Family Medicine; ATTEND Family Medicine
DX: E10.10 Type 1 diabetes mellitus with ketoacidosis without coma (principal); T38.3X6A Underdosing of insulin and oral hypoglycemic [antidiabetic] drugs, initial encounter; E10.41 Type 1 diabetes mellitus with diabetic mononeuropathy; K31.84 Gastroparesis; E86.0 Dehydration; E10.43 Type 1 diabetes mellitus with diabetic autonomic (poly)neuropathy; Z79.4 Long term (current) use of insulin; Z91.128 Patient's intentional underdosing of medication regimen for other reason; G57.93 Unspecified mononeuropathy of bilateral lower limbs; E87.5 Hyperkalemia; J45.909 Unspecified asthma, uncomplicated; F32.A Depression, unspecified; F41.9 Anxiety disorder, unspecified; D72.829 Elevated white blood cell count, unspecified; F43.9 Reaction to severe stress, unspecified; L30.9 Dermatitis, unspecified; F12.90 Cannabis use, unspecified, uncomplicated; Z91.51 Personal history of suicidal behavior; Z71.3 Dietary counseling and surveillance
CPT/HCPCS: 36415; 80048; 80051; 80053; 81001; 82009; 82565; 82803; 82947; 83605; 83690; 83735; 84100; 84132; 84520; 85025; 93005; 96361; 96374; 96375; 99291

== ENCOUNTER 2023-03-19 02:50 | Inpatient (IN) | payer OTHER ==
[2023-03-19] MEDS ORDERED: SODIUM CHLORIDE 0.9% 1,000 ML IV ONE (03:01)
[2023-03-19 03:07] LABS: Glucose,Whole Blood >600 mg/dL (70-110)
[2023-03-19] MEDS ORDERED: SODIUM CHLORIDE 0.9% 2,000 ML IV ONE (03:07)
[2023-03-19] MEDS ORDERED: PANTOPRAZOLE 40 MG/10 ML VIAL IVP STA (03:08)
--- NOTE | 2023-03-19 03:09 | ED ---
General Adult HPI - General Chief complaint: Nausea/Vomiting/Diarrhea Stated complaint: Hyperglycemia Time Seen by Provider: 03/19/23 03:05 Source: patient Mode of arrival: EMS - History of Present Illness Initial comments: Dictation was produced using [employer] dictation software. please excuse any grammatical, word or spelling errors. Chief Complaint: 27-year-old male well-known to emergency department for multiple visitations of DKA presents to the ER for altered mentation and noncompliance with diabetes medication History of Present Illness: 27-year-old male presents to the ER via EMS from home. EMS was called from patient's mother. EMS reports that patient was just discharged from the hospital for DKA earlier today. At home he did not eat or take his insulin. EMS reports that patient's tachycardic and hypothermic. Patient too lethargic to provide history of present illness. The ROS documented in this emergency department record has been reviewed and confirmed by me. Those systems with pertinent positive or negative responses have been documented in the HPI. All other systems are other negative and/or noncontributory. - Related Data Home Medications Medication Instructions Recorded Confirmed Insulin Detemir (Levemir) [Levemir] 30 unit SQ DIRECTED 03/07/23 03/12/23 Allergies Allergy/AdvReac Type Severity Reaction Status Date / Time No Known Allergies Allergy Verified 03/12/23 10:31 Review of Systems ROS Statement: Those systems with pertinent positive or pertinent negative responses have been documented in the HPI. ROS Other: All systems not noted in ROS Statement are negative. Past Medical History Past Medical History: Asthma, Diabetes Mellitus, Neurologic Disorder, Skin Disorder Additional Past Medical History / Comment(s): IDDM type I, neuropathy bilateral feet, DKA, eczema. History of Any Multi-Drug Resistant Organisms: None Reported Past Surgical History: Adenoidectomy Additional Past Surgical History / Comment(s): 2003 Recent EGD- gastritis Past Anesthesia/Blood Transfusion Reactions: No Reported Reaction Past Psychological History: Anxiety, Depression Smoking Status: Unknown if ever smoked - Past Family History Mother Family Medical History: CVA/TIA Additional Family Medical History / Comment(s): TIA Father Family Medical History: Hyperlipidemia, Hypertension Additional Family Medical History / Comment(s): . General Exam - General Exam Comments Initial Comments: PHYSICAL EXAM: General Impression: Alert, lethargic, smells of acetone HEENT: Normocephalic atraumatic, extra-ocular movements intact, pupils equal and reactive to light bilaterally, dry mucous membranes Cardiovascular: Tachycardic Chest: Kussmaul's respirations no retractions Abdomen: abdomen soft, non-tender, non-distended, no organomegaly Musculoskeletal: Pulses present and equal in all extremities, no peripheral edema Motor: no focal deficits noted Neurological: CN II-XII grossly intact, no focal motor or sensory deficits noted Skin: Intact with no visualized rashes Course Vital Signs 03/19/23 02:52 Temperature 95.7 F L Pulse Rate 130 H Respiratory 21 Rate Blood Pressure 128/77 O2 Sat by Pulse 98 Oximetry Medical Decision Making - Medical Decision Making Was pt. sent in by a medical professional or institution (Dr. PA, HEAD OF CYTOGENETICS, urgent care, hospital, or longterm...) When possible be specific @ -No Did you speak to anyone other than the patient for history (EMS, parent, family, police, friend...)? What history was obtained from this source @ -EMS Did you review nursing and triage notes (agree or disagree)? Why? @ -I reviewed and agree with nursing and triage notes Were old charts reviewed (outside hosp., previous admission, EMS record, old EKG, old radiological studies, urgent care reports/EKG's, longterm records)? Report findings @ -No old charts were reviewed Differential Diagnosis (chest pain, altered mental status, abdominal pain women, abdominal pain men, vaginal bleeding, musculoskeletal, weakness, fever, dyspn ea, syncope, headache, dizziness, GI bleed, back pain, seizure, CVA, palpatations, mental health)? @ -Differential Altered Mental Status: Hypoglycemia, DKA, hypercapnia, ETOH, overdose, CO poisoning, trauma, myxedema coma, HTN encephalopathy, infection, encephalitis, psychosis, intercranial hemorrhage, hepatic encephalopathy, meningitis, CVA, this is not meant to be an all-inclusive list EKG interpreted by me (3pts min.). @ -See above X-rays interpreted by me (1pt min.). @ -None done CT interpreted by me (1pt min.). @ -None done U/S interpreted by me (1pt. min.). @ -None done What testing was considered but not performed or refused? (CT, X-rays, U/S, labs)? Why? @ -None What meds were considered but not given or refused? Why? @ -None Did you discuss the management of the patient with other professionals (professionals i.e. , PA, HEAD OF CYTOGENETICS, lab, RT, psych nurse, elementary school social worker, assembly machine operator, teacher, juvenile probation officer, field nurse case manager)? Give summary @ -Case discussed with hospitalist for admission Was smoking cessation discussed for >3mins.? @ -No Was critical care preformed (if so, how long)? @ -Yes, 33 minutes Were there social determinants of health that impacted care today? How? (Homelessness, low income, unemployed, alcoholism, drug addiction, transportation, low edu. Level, literacy, decrease access to med. care, correction, rehab)? @ -No Was there de-escalation of care discussed even if they declined (Discuss DNR or withdrawal of care, Hospice)? DNR status @ -No What co-morbidities impacted this encounter? (DM, HTN, Smoking, COPD, CAD, Cancer, CVA, ARF, Chemo, Hep., AIDS, mental health diagnosis, sleep apnea, morbid obesity)? @ -None Was patient admitted / discharged? Hospital course, mention meds given and route, prescriptions, significant lab abnormalities, going to OR and other pertinent info. @ -27 Year-old male well-known to emergency department for almost weekly visitations for DKA presents to the ER again clinical presentation of DKA. Vital signs upon arrival shows heart rate 1:30, temperature 95.7.Laboratory evaluation obtained. Venous pH 7.06 with a bicarb of 5 pCO2 of 16. Consistent with metabolic acidosis. Potassium 6.3, elevated renal markers, glucose of 800 lactic acidosis of 0.0. Patient started the anderson protocol will be admitted to ICU. Undiagnosed new problem with uncertain prognosis? @ -No Drug Therapy requiring intensive monitoring for toxicity (Heparin, Nitro, Insulin, Cardizem)? @ -No Were any procedures done? @ -No Diagnosis/symptom? Acute, or Chronic, or Acute on Chronic? Uncomplicated (without systemic symptoms) or Complicated (systemic symptoms)? @ -Diabetic ketoacidosis Side effects of treatment? @ -No Exacerbation, Progression, or Severe Exacerbation? @ -No Poses a threat to life or bodily function? How? (Chest pain, [place], [place], pneumonia, PE, COPD, DKA, ARF, appy, cholecystitis, CVA, Diverticulitis, Homicidal, Suicidal, threat to staff... and all critical care pts) @ -yes - Lab Data Result diagrams: 03/19/23 03:06 Lab Results 03/19/23 03/19/23 03/19/23 Range/Units 03:06 03:06 03:06 VBG pH (7.31-7.41) VBG pCO2 (37-51) mmHg VBG HCO3 (24-28) mmol/L Sodium 137 (137-145) mmol/L Potassium 6.3 H* (3.5-5.1) mmol/L Chloride 93 L (98-107) mmol/L Carbon Dioxide <5 L* (22-30) mmol/L Anion Gap mmol/L BUN 28 H (9-20) mg/dL Creatinine 1.62 H (0.66-1.25) mg/dL Est GFR (CKD-EPI)AfAm 67 (>60 ml/min/1.73 sqM) Est GFR (CKD-EPI)NonAf 58 (>60 ml/min/1.73 sqM) Glucose 820 H* (74-99) mg/dL POC Glucose (mg/dL) >600 H (70-110) mg/dL POC Glu Fishing Rod Marker ID Lauren Corbin Plasma Lactic Acid Len 7.0 H* (0.7-2.0) mmol/L Calcium 10.1 (8.4-10.2) mg/dL Total Bilirubin 0.6 (0.2-1.3) mg/dL AST 26 (17-59) U/L ALT 32 (4-49) U/L Alkaline Phosphatase 125 (38-126) U/L Total Protein 7.1 (6.3-8.2) g/dL Albumin 4.8 (3.5-5.0) g/dL 03/19/23 Range/Units 03:20 VBG pH 7.06 L* (7.31-7.41) VBG pCO2 16 L* (37-51) mmHg VBG HCO3 5 L* (24-28) mmol/L Sodium (137-145) mmol/L Potassium (3.5-5.1) mmol/L Chloride (98-107) mmol/L Carbon Dioxide (22-30) mmol/L Anion Gap mmol/L BUN (9-20) mg/dL Creatinine (0.66-1.25) mg/dL Est GFR (CKD-EPI)AfAm (>60 ml/min/1.73 sqM) Est GFR (CKD-EPI)NonAf (>60 ml/min/1.73 sqM) Glucose (74-99) mg/dL POC Glucose (mg/dL) (70-110) mg/dL POC Glu Fishing Rod Marker ID Plasma Lactic Acid Len (0.7-2.0) mmol/L Calcium (8.4-10.2) mg/dL Total Bilirubin (0.2-1.3) mg/dL AST (17-59) U/L ALT (4-49) U/L Alkaline Phosphatase (38-126) U/L Total Protein (6.3-8.2) g/dL Albumin (3.5-5.0) g/dL Disposition Clinical Impression: DKA (diabetic ketoacidosis) Disposition: ADMITTED IP TO THIS [facility] Condition: Critical Referrals: Brown Valenzuela MD [Primary Care Provider] - 1-2 days Decision Time: 04:00
[2023-03-19 03:26] LABS: Basophils # (A) 0.1 k/uL (0-0.2); Basophils % (A) 0 %; Eosinophils # (A) 0.1 k/uL (0-0.7); Eosinophils % (A) 0 %; HCT 45.6 % (39.0-53.0); HGB 13.4 gm/dL (13.0-17.5); Hypochromasia Marked; Lymphocytes # (A) 2.9 k/uL (1.0-4.8); Lymphocytes % (A) 11 %; MCH 29.8 pg (25.0-35.0); MCHC 29.3 g/dL (31.0-37.0); Macrocytosis Slight; Mean Platelet Volume 8.6; Monocytes % (A) 4 %; Neutrophils # (A) 22.3 k/uL (1.3-7.7); Neutrophils % (A) 84 %; Platelet Count 660 k/uL (150-450); RBC 4.49 m/uL (4.30-5.90); RDW 15.2 % (11.5-15.5); WBC 26.4 k/uL (3.8-10.6)
[2023-03-19 03:35] LABS: ALT 32 U/L (4-49); AST 26 U/L (17-59); African American GFR (CKD) 67 (>60 ml/min/1.73 sqM); Albumin 4.8 g/dL (3.5-5.0); Alkaline Phosphatase 125 U/L (38-126); Blood Urea Nitrogen 28 mg/dL (9-20); Calcium 10.1 mg/dL (8.4-10.2); Chloride 93 mmol/L (98-107); Non-African American GFR(CKD) 58 (>60 ml/min/1.73 sqM); Sodium 137 mmol/L (137-145); Total Bilirubin 0.6 mg/dL (0.2-1.3); Total Protein 7.1 g/dL (6.3-8.2)
[2023-03-19] MEDS ORDERED: ONDANSETRON 4 MG/2 ML VIAL IVP STA (03:39)
[2023-03-19 03:47] LABS: INR 0.9 (<1.2); Partial Thromboplastin Time 22.6 sec (22.0-30.0)
[2023-03-19 03:49] LABS: VBG PH 7.06 (7.31-7.41)
[2023-03-19 03:51] LABS: Carbon Dioxide <5 mmol/L (22-30); Glucose 820 mg/dL (74-99); Potassium 6.3 mmol/L (3.5-5.1)
[2023-03-19] MEDS ORDERED: INSULIN REGULAR BOLUS (FROM DRIP BAG) IV ONE (03:57)
[2023-03-19 04:14] LABS: MCV 101.6 fL (80.0-100.0)
[2023-03-19] MEDS: SODIUM CHLORIDE 0.9% 1,000 ML IV SCH ×2 (04:19→09:17)
[2023-03-19] MEDS: INSULIN REGULAR 100 UNIT in SODIUM CHLORIDE 0.9% 100 ML IV SCH ×2 (04:27→17:14)
[2023-03-19] MEDS: D5-0.45% NACL WITH KCL 20MEQ/L 1,000 ML IV SCH ×3 (04:30→17:14)
[2023-03-19 04:58] LABS: Glucose,Whole Blood >600 mg/dL (70-110)
[2023-03-19 05:05] LABS: African American GFR (CKD) 81 (>60 ml/min/1.73 sqM); Blood Urea Nitrogen 29 mg/dL (9-20); Chloride 101 mmol/L (98-107); Non-African American GFR(CKD) 70 (>60 ml/min/1.73 sqM); Sodium 140 mmol/L (137-145)
[2023-03-19 05:21] LABS: Glucose 749 mg/dL (74-99)
[2023-03-19 05:22] LABS: Potassium 6.3 mmol/L (3.5-5.1)
[2023-03-19 05:23] LABS: Carbon Dioxide <5 mmol/L (22-30)
[2023-03-19 06:05] LABS: Glucose,Whole Blood 506 mg/dL (70-110)
[2023-03-19 06:13] LABS: Appearance,Urine Clear (Clear); Color,Urine Light Yellow; Glucose,Urine (UA) 4+ (Negative); Protein,Urine Negative (Negative)
[2023-03-19 06:15] LABS: Bilirubin,Urine Negative (Negative); Ketones,Urine 4+ (Negative)
[2023-03-19 06:16] LABS: Blood,Urine Negative (Negative); Leukocyte Esterase,Urine Negative (Negative); Nitrite,Urine Negative (Negative); Urobilinogen,Urine <2.0 mg/dL (<2.0)
[2023-03-19 06:51] LABS: Glucose,Whole Blood 502 mg/dL (70-110)
--- NOTE | 2023-03-19 06:52 | P.CNPUL ---
History of Present Illness Consult date: 03/19/23 Requesting physician: Brown Valenzuela Reason for consult: other (ICU management; DKA) Chief complaint: Weakness, nausea and vomiting History of present illness: This is a 27-year-old white male with past medical history significant for type 1 diabetes mellitus and medication noncompliance. Patient has had numerous hospital admissions for diabetic ketoacidosis, and was recently discharged two days ago for the same. Apparently, the patient went home, and did not take his insulin. He has insulin, but states he did not take it because he "was too tired". Patient's mother called EMS. He was having nausea and vomiting. Denies any abdominal pain, diarrhea, constipation, hematemesis. Denies any infectious symptoms. He was found to be in DKA. Serum bicarb was less than 5, anion gap u nmeasurable, glucose 749, and he was acetone positive. Patient has been started on the DKA protocol. Insulin is currently infusing at 5 units per hour. He received 2 L normal saline bolus in the emergency room. Normal saline is currently infusing at 200 ml per hour. CBC on arrival showed WBC count of 26.4, hemoglobin 13.4, hematocrit 45.6, platelets 660. BMP on arrival shows sodium sodium 140, potassium 6.3, chloride 101, serum bicarb less than 5, BUN 29, creatinine 1.39, glucose 749. VBG was consistent with anion gap metabolic acidosis. Heart rhythm is sinus tachycardia. There are hyperacute T waves. Blood pressure normotensive. On room air. Now alert and answers questions appropriately. He will be monitored in the intensive care unit as well as DKA resolves. Review of Systems REVIEW OF SYSTEMS: CONSTITUTIONAL: Denies any recent significant weight loss or weight gain. EYES: Denies change in vision. EARS, NOSE, MOUTH, THROAT: Denies headaches, denies sore throat. CARDIOVASCULAR: Denies chest pain, palpitations or syncopal episodes. RESPIRATORY: Denies shortness of breath, cough, congestion or hemoptysis. GASTROINTESTINAL: Denies change in appetite, abdominal pain, or diarrhea. Admits nausea and vomiting. Denies hematemesis GENITOURINARY: Denies hematuria, denies infections. MUSKULOSKELETAL: Denies pain, denies swelling. INTEGUMENTARY: Denies rash, denies eczema. NEUROLOGICAL: Denies recent memory loss, no recent seizure activity. PSYCHIATRIC: Denies anxiety, denies depression. HEMATOLOGIC/LYMPHATIC: Denies anemia, denies enlarged lymph node Past Medical History Past Medical History: Asthma, Diabetes Mellitus, Neurologic Disorder, Skin Disorder Additional Past Medical History / Comment(s): IDDM type I, neuropathy bilateral feet, DKA, eczema. History of Any Multi-Drug Resistant Organisms: None Reported Past Surgical History: Adenoidectomy Additional Past Surgical History / Comment(s): 2002 Recent EGD- gastritis Past Anesthesia/Blood Transfusion Reactions: No Reported Reaction Past Psychological History: Anxiety, Depression Additional Psychological History / Comment(s): Pt has had multiple psychiatric admissions for depression/suicide attempts. Smoking Status: Former smoker Past Alcohol Use History: None Reported Additional Past Alcohol Use History / Comment(s): Pt started smoking cigarettes as a teen and quit "long ago." Pt started occasional vaping in 2009. Past Drug Use History: Marijuana Additional Drug Use History / Comment(s): Occasional - Past Family History Mother Family Medical History: CVA/TIA Additional Family Medical History / Comment(s): TIA Father Family Medical History: Hyperlipidemia, Hypertension Additional Family Medical History / Comment(s): . Medications and Allergies Home Medications Medication Instructions Recorded Confirmed Type Insulin Detemir (Levemir) [Levemir] 30 unit SQ DIRECTED 03/07/23 03/12/23 History Allergies Allergy/AdvReac Type Severity Reaction Status Date / Time No Known Allergies Allergy Verified 03/12/23 10:31 Physical Exam Vitals: Vital Signs Temp Pulse Resp BP Pulse Ox 03/19/23 06:21 122 H 19 131/81 100 03/19/23 06:19 97.1 F L 03/19/23 02:52 95.7 F L 130 H 21 128/77 98 Intake and Output 03/18/23 03/18/23 03/19/23 14:59 22:59 06:59 Intake Total 200 Output Total 400 Balance -200 Intake: Intake, IV Titration 200 Amount Sodium Chloride 0.9% 1, 200 000 ml @ 200 mls/hr IV . Q5H [facility] Rx#:[id number] Output: Urine 400 Other: Weight 49.895 kg Results - Laboratory Findings CBC and BMP: 03/19/23 03:06 03/19/23 07:48 PT/INR, D-dimer PT 10.0 sec (10.0-12.5) 03/19/23 03:07 INR 0.9 (<1.2) 03/19/23 03:07 Abnormal lab findings: Abnormal Labs 03/19/23 03/19/23 03/19/23 03:06 03:06 03:06 WBC 26.4 H MCV 101.6 H D MCHC 29.3 L Plt Count 660 H Neutrophils # 22.3 H VBG pH VBG pCO2 VBG HCO3 Potassium 6.3 H* Chloride 93 L Carbon Dioxide <5 L* BUN 28 H Creatinine 1.62 H Glucose 820 H* POC Glucose (mg/dL) Plasma Lactic Acid Len 7.0 H* Phosphorus Urine Glucose (UA) Urine Ketones 03/19/23 03/19/23 03/19/23 03:06 03:07 03:20 WBC MCV MCHC Plt Count Neutrophils # VBG pH 7.06 L* VBG pCO2 16 L* VBG HCO3 5 L* Potassium Chloride Carbon Dioxide BUN Creatinine Glucose POC Glucose (mg/dL) >600 H Plasma Lactic Acid Len Phosphorus Urine Glucose (UA) 4+ H Urine Ketones 4+ H 03/19/23 03/19/23 03/19/23 04:27 04:27 04:57 WBC MCV MCHC Plt Count Neutrophils # VBG pH VBG pCO2 VBG HCO3 Potassium 6.3 H* Chloride Carbon Dioxide <5 L* BUN 29 H Creatinine 1.39 H Glucose 749 H* POC Glucose (mg/dL) >600 H Plasma Lactic Acid Len Phosphorus 8.1 H Urine Glucose (UA) Urine Ketones 03/19/23 06:03 WBC MCV MCHC Plt Count Neutrophils # VBG pH VBG pCO2 VBG HCO3 Potassium Chloride Carbon Dioxide BUN Creatinine Glucose POC Glucose (mg/dL) 506 H Plasma Lactic Acid Len Phosphorus Urine Glucose (UA) Urine Ketones Assessment and Plan Assessment: Acute diabetic ketoacidosis, secondary to medication noncompliance. Patient has had numerous episodes of DKA, and he was recently discharged two days ago for the same. Severe anion gap metabolic acidosis, secondary to above and lactic acidosis Dehydration Acute kidney injury, secondary to above Hyperkalemia Type 1 diabetes mellitus, with poor compliance. Acute leukocytosis, likely reactive to DKA Thrombocytosis Diabetic neuropathy History of major depression Chronic marijuana use Chronic ongoing nicotine dependence Plan: Patient's medications and labs reviewed Continue DKA protocol Insulin infusion per protocol Fluid resuscitated with 2 L normal saline bolus in the emergency room, and has normal saline infusing at 200 ML's per hour Patient is hyperkalemic. There are hyperacute T waves. Continue to monitor electrolytes every 4 hours. Patient will be monitored in the intensive care unit until his DKA resolves. This is a joint evaluation that was done along with a nurse practitioner. Within 48 hours of being discharged, the patient presented again with a DKA. Obviously, the patient is not taking his insulin. He comes in with typical pictures of DKA with severe anion gap metabolic acidosis. We will current treating him with a DKA protocol. He is currently on insulin drip which is running at 6.04 units an hour. The patient's she is currently on D5 half-normal saline at the rate of 150 mL an hour. Most recent blood sugars at 245. He remains quite acidotic with a serum bicarb less than 5 and severe anion gap metabolic acidosis. The leukocytosis is reactive. Obviously, the patient will need this case monitor consult and possible placement as the patient is completely noncompliant with insulin therapy. He had minutes of not taking any of his insulin since his discharge. He did not even seem to have picked up his medication from the pharmacy. Prognosis is extremely poor based on those recurrent DKAs I have personally seen and examined the patient, performed the documentation and the assessment and plan as written. Number of minutes spent on the visit:20 Time with Patient: Greater than 30
[2023-03-19 07:59] LABS: Glucose,Whole Blood 339 mg/dL (70-110)
[2023-03-19 08:28] LABS: African American GFR (CKD) >90 (>60 ml/min/1.73 sqM); Blood Urea Nitrogen 27 mg/dL (9-20); Chloride 111 mmol/L (98-107); Glucose 366 mg/dL (74-99); Non-African American GFR(CKD) 89 (>60 ml/min/1.73 sqM); Potassium 5.9 mmol/L (3.5-5.1); Sodium 145 mmol/L (137-145)
[2023-03-19 08:32] LABS: Carbon Dioxide <5 mmol/L (22-30)
[2023-03-19 08:54] LABS: Glucose,Whole Blood 245 mg/dL (70-110)
[2023-03-19 10:26] LABS: Glucose,Whole Blood 209 mg/dL (70-110)
[2023-03-19 11:14] LABS: Glucose,Whole Blood 197 mg/dL (70-110)
[2023-03-19 12:25] LABS: Glucose,Whole Blood 232 mg/dL (70-110)
[2023-03-19] MEDS: ONDANSETRON 4 MG/2 ML VIAL IVP PRN ×2 (13:22→23:31)
[2023-03-19 13:26] LABS: Glucose,Whole Blood 292 mg/dL (70-110)
[2023-03-19 14:35] LABS: Glucose,Whole Blood 225 mg/dL (70-110)
[2023-03-19 14:56] LABS: African American GFR (CKD) >90 (>60 ml/min/1.73 sqM); Anion Gap 19 mmol/L; Blood Urea Nitrogen 23 mg/dL (9-20); Calcium 9.1 mg/dL (8.4-10.2); Carbon Dioxide 11 mmol/L (22-30); Chloride 113 mmol/L (98-107); Glucose 232 mg/dL (74-99); Non-African American GFR(CKD) >90 (>60 ml/min/1.73 sqM); Potassium 4.9 mmol/L (3.5-5.1); Sodium 143 mmol/L (137-145)
[2023-03-19 16:20] LABS: Glucose,Whole Blood 151 mg/dL (70-110)
[2023-03-19 17:14] LABS: Glucose,Whole Blood 143 mg/dL (70-110)
[2023-03-19 18:42] LABS: Glucose,Whole Blood 134 mg/dL (70-110)
[2023-03-19 20:09] LABS: Glucose,Whole Blood 178 mg/dL (70-110)
[2023-03-19 21:08] LABS: Glucose,Whole Blood 170 mg/dL (70-110)
[2023-03-19 21:44] LABS: African American GFR (CKD) >90 (>60 ml/min/1.73 sqM); Anion Gap 15 mmol/L; Blood Urea Nitrogen 21 mg/dL (9-20); Carbon Dioxide 15 mmol/L (22-30); Chloride 111 mmol/L (98-107); Glucose 168 mg/dL (74-99); Non-African American GFR(CKD) >90 (>60 ml/min/1.73 sqM); Potassium 4.7 mmol/L (3.5-5.1); Sodium 141 mmol/L (137-145)
[2023-03-19 22:03] LABS: Glucose,Whole Blood 161 mg/dL (70-110)
[2023-03-19 23:06] LABS: Glucose,Whole Blood 167 mg/dL (70-110)
[2023-03-20 00:07] LABS: Glucose,Whole Blood 172 mg/dL (70-110)
[2023-03-20] MEDS: D5-0.45% NACL WITH KCL 20MEQ/L 1,000 ML IV SCH ×2 (00:08→06:58)
[2023-03-20 01:08] LABS: Glucose,Whole Blood 171 mg/dL (70-110)
[2023-03-20 01:35] LABS: African American GFR (CKD) >90 (>60 ml/min/1.73 sqM); Anion Gap 13 mmol/L; Blood Urea Nitrogen 20 mg/dL (9-20); Calcium 8.8 mg/dL (8.4-10.2); Carbon Dioxide 19 mmol/L (22-30); Chloride 109 mmol/L (98-107); Glucose 172 mg/dL (74-99); Non-African American GFR(CKD) >90 (>60 ml/min/1.73 sqM); Potassium 4.4 mmol/L (3.5-5.1); Sodium 141 mmol/L (137-145)
[2023-03-20 02:13] LABS: Glucose,Whole Blood 199 mg/dL (70-110)
[2023-03-20 03:11] LABS: Glucose,Whole Blood 201 mg/dL (70-110)
[2023-03-20 04:18] LABS: Glucose,Whole Blood 196 mg/dL (70-110)
[2023-03-20 05:09] LABS: Glucose,Whole Blood 208 mg/dL (70-110)
[2023-03-20 06:05] LABS: African American GFR (CKD) >90 (>60 ml/min/1.73 sqM); Anion Gap 10 mmol/L; Blood Urea Nitrogen 18 mg/dL (9-20); Calcium 8.7 mg/dL (8.4-10.2); Carbon Dioxide 21 mmol/L (22-30); Chloride 108 mmol/L (98-107); Glucose 197 mg/dL (74-99); Non-African American GFR(CKD) >90 (>60 ml/min/1.73 sqM); Potassium 4.4 mmol/L (3.5-5.1); Sodium 139 mmol/L (137-145)
[2023-03-20 06:15] LABS: Glucose,Whole Blood 246 mg/dL (70-110)
[2023-03-20 07:14] LABS: Glucose,Whole Blood 211 mg/dL (70-110)
[2023-03-20] MEDS: INSULIN ASPART (NovoLOG) 100 UNIT/ML VIAL SQ SCH ×4 (07:19→21:02)
[2023-03-20] MEDS: INSULIN DETEMIR (LEVEMIR) 100 UNIT/ML SYR SQ SCH (07:28)
--- NOTE | 2023-03-20 09:11 | HP ---
HISTORY AND PHYSICAL CHIEF COMPLAINT: DKA. HISTORY OF PRESENT ILLNESS: This is another admission for this 27-year-old white male with type 1 insulin-dependent diabetes mellitus. He was just discharged 2 days ago. He goes home, does not take his insulin and he comes back in. REVIEW OF SYSTEMS: He is very lethargic and no history can be obtained. The remainder of the history is unremarkable and found in all of his other past documents. PHYSICAL EXAMINATION: VITAL SIGNS: Blood pressure is 110/56 with a pulse of 134. GENERAL: He appeared to be dehydrated. HEENT: Head, ears, eyes, nose, mouth, and throat were normal except for dehydration and mucous membranes. CHEST: Clear. CARDIAC: Normal. ABDOMEN: Soft and nontender. IMPRESSION: 1. Recurrent DKA. 2. Major depression. 3. Uncontrolled insulin-dependent type 1 diabetes. PLAN: ICU with DKA protocol. MMSHANEL / TRAMN: [id number] /
--- NOTE | 2023-03-20 09:21 | P.PN ---
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 Anion gap is closed. Serum bicarb is up to 21 with a gap of 10. Blood sugars at 211. The patient is currently on IV fluids at 50 mL an hour of D5 half-normal saline. Insulin drip has been discontinued. He was transitioned to Levemir insulin 30 units. He wants to proceed with foods. No other complaints otherwise for now. Objective - Vital Signs Vital signs: Vital Signs Temp 98.2 F 03/20/23 08:00 Pulse 109 H 03/20/23 09:00 Resp 14 03/20/23 09:00 BP 124/88 03/20/23 09:00 Pulse Ox 97 03/20/23 09:00 FiO2 Intake & Output 03/19/23 03/20/23 03/20/23 18:59 06:59 18:59 Intake Total 128.201 3649 350 Output Total 2050 580 10 Balance -7897.500 8705 340 Weight 49.895 kg 62.6 kg Intake: IV 1500 350 D5-0.45% NaCl with KCl 1500 350 20Meq/l 1,000 ml @ 50 mls /hr IV .Q20H [facility] Rx#: [id number] Intake, IV Titration 402.000 150 Amount D5-0.45% NaCl with KCl 150 20Meq/l 1,000 ml @ 50 mls /hr IV .Q20H [facility] Rx#: [id number] Insulin Regular 100 unit 202.000 In Sodium Chloride 0.9% 100 ml @ 0.1 UNITS/KG/HR 5.039 mls/hr IV .Q20H3M [facility] Rx#:[id number] Sodium Chloride 0.9% 1, 200 000 ml @ 200 mls/hr IV . Q5H [facility] Rx#:[id number] Oral 250 Output: Urine 1800 580 10 Emesis 250 Other: Voiding Method Urinal Urinal Urinal - Exam The patient appeared well nourished and normally developed. Vital signs as documented. Head exam is unremarkable. No scleral icterus or corneal arcus noted. Neck is without jugular venous distension, thyromegaly, or carotid bruits. Carotid upstrokes are brisk bilaterally. Lungs are clear to auscultation and percussion. Cardiac exam reveals the PMI to be normally sized and situated. Rhythm is regular. First and second heart sounds normal. No murmurs, rubs or gallops. Abdominal exam reveals normal bowel sounds, no masses, no organomegaly and no aortic enlargement. Extremities are nonedematous and both femoral and pedal pulses are normal. - Labs CBC & Chem 7: 03/19/23 03:06 03/20/23 05:07 Labs: Abnormal Lab Results - Last 24 Hours (Table) 03/19/23 03/19/23 03/19/23 Range/Units 10:24 11:13 12:24 Chloride (98-107) mmol/L Carbon Dioxide (22-30) mmol/L BUN (9-20) mg/dL Creatinine (0.66-1.25) mg/dL Glucose (74-99) mg/dL POC Glucose (mg/dL) 209 H 197 H 232 H (70-110) mg/dL 03/19/23 03/19/23 03/19/23 Range/Units 13:25 14:28 14:33 Chloride 113 H (98-107) mmol/L Carbon Dioxide 11 L (22-30) mmol/L BUN 23 H (9-20) mg/dL Creatinine (0.66-1.25) mg/dL Glucose 232 H (74-99) mg/dL POC Glucose (mg/dL) 292 H 225 H (70-110) mg/dL 03/19/23 03/19/23 03/19/23 Range/Units 16:19 17:13 18:40 Chloride (98-107) mmol/L Carbon Dioxide (22-30) mmol/L BUN (9-20) mg/dL Creatinine (0.66-1.25) mg/dL Glucose (74-99) mg/dL POC Glucose (mg/dL) 151 H 143 H 134 H (70-110) mg/dL 03/19/23 03/19/23 03/19/23 Range/Units 20:08 21:07 21:15 Chloride 111 H (98-107) mmol/L Carbon Dioxide 15 L (22-30) mmol/L BUN 21 H (9-20) mg/dL Creatinine (0.66-1.25) mg/dL Glucose 168 H (74-99) mg/dL POC Glucose (mg/dL) 178 H 170 H (70-110) mg/dL 03/19/23 03/19/23 03/20/23 Range/Units 22:01 23:04 00:05 Chloride (98-107) mmol/L Carbon Dioxide (22-30) mmol/L BUN (9-20) mg/dL Creatinine (0.66-1.25) mg/dL Glucose (74-99) mg/dL POC Glucose (mg/dL) 161 H 167 H 172 H (70-110) mg/dL 03/20/23 03/20/23 03/20/23 Range/Units 00:57 01:06 02:12 Chloride 109 H (98-107) mmol/L Carbon Dioxide 19 L (22-30) mmol/L BUN (9-20) mg/dL Creatinine (0.66-1.25) mg/dL Glucose 172 H (74-99) mg/dL POC Glucose (mg/dL) 171 H 199 H (70-110) mg/dL 03/20/23 03/20/23 03/20/23 Range/Units 03:10 04:15 05:06 Chloride (98-107) mmol/L Carbon Dioxide (22-30) mmol/L BUN (9-20) mg/dL Creatinine (0.66-1.25) mg/dL Glucose (74-99) mg/dL POC Glucose (mg/dL) 201 H 196 H 208 H (70-110) mg/dL 03/20/23 03/20/23 03/20/23 Range/Units 05:07 06:14 07:13 Chloride 108 H (98-107) mmol/L Carbon Dioxide 21 L (22-30) mmol/L BUN (9-20) mg/dL Creatinine 0.65 L (0.66-1.25) mg/dL Glucose 197 H (74-99) mg/dL POC Glucose (mg/dL) 246 H 211 H (70-110) mg/dL Assessment and Plan Assessment: Acute diabetic ketoacidosis, secondary to medication noncompliance. Patient has had numerous episodes of DKA, and he was recently discharged two days ago for the same. The patient has improved and anion gap metabolic acidosis is recovered and the patient has been transitioned to long-acting insulin Severe anion gap metabolic acidosis, secondary to above and lactic acidosis, recovered Dehydration, recovered Acute kidney injury, secondary to above, recovered Hyperkalemia, recovered Type 1 diabetes mellitus, with poor compliance. 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
[2023-03-20] MEDS: ONDANSETRON 4 MG/2 ML VIAL IVP PRN (09:51)
[2023-03-20 10:18] LABS: Anisocytosis Slight; HCT 32.7 % (39.0-53.0); MCH 30.2 pg (25.0-35.0); MCHC 33.7 g/dL (31.0-37.0); Mean Platelet Volume 6.9; Platelet Count 522 k/uL (150-450); RBC 3.65 m/uL (4.30-5.90); RDW 16.1 % (11.5-15.5); WBC 17.3 k/uL (3.8-10.6)
[2023-03-20 10:22] LABS: MCV 89.5 fL (80.0-100.0)
[2023-03-20 11:37] LABS: Glucose,Whole Blood 100 mg/dL (70-110)
--- NOTE | 2023-03-20 13:33 | CDI ---
Documentation Clarification Form Date: 03/20/2023 From: Bella Cid Admit Date: 03/19/2023 03:57:00 AM Patient Name: Raul Marquez Visit Number: [id number] ATTENTION: The Clinical Documentation Specialists (CDI) and [facility] Coding Staff appreciate your assistance in clarifying documentation. Please respond to the clarification below the line at the bottom and electronically sign. The CDI & [facility] Coding staff will review the response and follow-up if needed. Please note: Queries are made part of the Legal Health Record. If you have any questions, please contact the author of this message via ITS. Dr. Daren Shankar Your patient has acute leukocytosis, cute kidney injury and an elevated heart rate. Based on this information and the findings below, is there an additional diagnosis that is clinically appropriate for this patient? History/Risk Factors: 27yo noncompliant DM type 1 w/ frequent admissions for DKA. Clinical Indicators: per the ICU consult the patient has acute leukocytosis, likely reactive to DKA Labs 03/19 @ 0306: WBC 26.4, K 6.3, BUN 28, Creat 1.62, gluc 820, LA 7.0 VBG pH 7.06, pCO2 16, HCO3 5 03/19 @ 1428: Anion gap 19 VS 03/19 @ 0252: temp 95.7, HR 130, RR 21, ELECTRONIC DEVELOPMENT TECHNICIAN 128/77 Treatment: D5%-1/2NS-KCl 20Meq IV fluid, insulin gtt, Levemir sub!Q Novolog subQ Is there an additional diagnosis that is clinically appropriate for this patient? [ ] SIRS, due to DKA without acute organ dysfunction [ x ] SIRS, due to DKA with acute kidney injury and confusion [ ] Other, please specify [ ] Unable to determine SIRS Criteria: 2 or more of the following may indicate SIRS -Temperature < 96.8F(36C) or > 101.0F (38.3C) -Heart Rate > 90 bpm -Respiratory Rate > 20 breaths/min or PaCO2 < 32 mmHg -White Blood Cell Count > 12,000 or < 4,000 cells/mm3 or > 10% bands (Template Last Revised: July 2020) MTDD
--- NOTE | 2023-03-20 15:00 | P.CN ---
Psychiatric Consult - . 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 HPI: patient was initially seen by television writer today for psychiatric consultation due to patient being non compliant and having frequent hospitalizations. Patient was seen on 03/19 and was brought into the ER by EMS. Patient mother called the EMS. Patient was discharged earlier that day for DKA. Patient apparently has not been taking medications or insulin at home. His blood sugars on arrival were 820. Patient was seen today resting in bed, he states that he is "not doing too good". He states that he isn't staying with his mother since October. He claims that things are "pretty calvin" and states that he's been frequently hospitalized. States that he has poor energy now, he claims that he is not able to work or function much. States that he is not able to get his insulin from the pharmacy. He has fairly poor insight. He claims that he is "making excuses not to get it". He states that his mood is "okay but sometimes depressed". States that it is having thoughts of not wanting to be alive however no intent or plan and these appear to be fairly chronic passive suicidal thoughts. He claims that he has poor desire to live and take care of himself. He is agreeable to try medications once again. he is denying any HI but still says the he has fleeting SI, no intent or plan. he is denying any Ah or Vh today. At this time he is denying any recreational drugs. PAST PSYCHIATRIC HISTORY: The patient has had multiple psychiatric hospitalizations, and multiple ICU and medical admissions for DKA and other complications from diabetes. Patient has a history of borderline personality disorder, depressive disorder. He is nonadherent with any prescribed medications and does not follow up with any psychiatrist or therapist on a regular basis. Patient has been tried on several different antidepressants in the past however has been nonadherent. Patient has had several suicide attempts in the past PMH: Past Medical History: Asthma, Diabetes Mellitus, Neurologic Disorder, Skin D isorder Additional Past Medical History / Comment(s): IDDM type I, neuropathy bilateral feet, DKA, eczema. History of Any Multi-Drug Resistant Organisms: None Reported Past Surgical History: Adenoidectomy Additional Past Surgical History / Comment(s): 2002 Past Anesthesia/Blood Transfusion Reactions: No Reported Reaction Past Psychological History: Anxiety, Depression Smoking Status: Never smoker, Vaper Past Alcohol Use History: Occasional Past Drug Use History: Marijuana ALLERGIES: NO KNOWN DRUG ALLERGIES CHEMICAL DEPENDENCY HISTORY: denies any rec drug use. FAMILY PSYCHIATRIC/SUBSTANCE USE HISTORY: Denies SOCIAL HISTORY: Patient was born and raised in [place]. He dropped out in the 11th grade. He is currently living with his mother. He is currently unemployed MENTAL STATUS EXAM: General Appearance: Patient appears to be tall, thin, alert, stated age. Patient appears to have a improving hygiene and grooming. Dressed in street clothing. Behavior: Patient is laying in bed without any agitated behavior. Eye contact is intermittent. improving Speech: Patient's speech is fluent and nonpressured. Monotone. concrete. Mood/Affect: Patient reports their mood is "not very good", affect is constricted. Suicidality/Homicidality: Patient denies any active suicidal thoughts, fleeting thoughts, no intent or plan. Denying any homicidal ideations. Perceptions: Patient denies any visual hallucinations and denies any auditory hallucinations Though content/process: There is no evidence of any delusional thought content and thought process is linear and goal-directed. poverty of content Memory and concentration: AOX3, grossly intact for the purposes of this session. Can spell "WORLD" backwards Judgment and insight: chronically poor IMPRESSIONS: Major depressive disorder without psychotic features Borderline personality disorder anxiety disorder NOS non adherence to medical treatment PLAN: -At this time patient does not meet inpatient psych criteria however will continue to monitor to see if patient is improving or needs to be admitted to psych. -Would recommend the following medication changes/additions: start remeron 15 mg qhs for insomnia/mood, Wellbutrin 150 mg XL daily for mood/anxiety. -consider 1:1 if patient is endorsing SI further or has a plan and is unsafe. 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 03/20/23 14:52
[2023-03-20] MEDS: buPROPion XL 150 MG TAB.ER.24H PO SCH (15:46)
[2023-03-20 16:48] LABS: ALT 21 U/L (4-49); AST 23 U/L (17-59); African American GFR (CKD) >90 (>60 ml/min/1.73 sqM); Albumin 3.1 g/dL (3.5-5.0); Alkaline Phosphatase 78 U/L (38-126); Blood Urea Nitrogen 13 mg/dL (9-20); Calcium 8.4 mg/dL (8.4-10.2); Carbon Dioxide 24 mmol/L (22-30); Glucose 94 mg/dL (74-99); Non-African American GFR(CKD) >90 (>60 ml/min/1.73 sqM); Phosphorus 1.6 mg/dL (2.5-4.5); Total Bilirubin 0.5 mg/dL (0.2-1.3); Total Protein 5.4 g/dL (6.3-8.2)
[2023-03-20 17:07] LABS: Anion Gap 6 mmol/L; Chloride 97 mmol/L (98-107); Potassium 3.9 mmol/L (3.5-5.1); Sodium 127 mmol/L (137-145)
[2023-03-20 17:12] LABS: Glucose,Whole Blood 83 mg/dL (70-110)
[2023-03-20 20:10] LABS: Glucose,Whole Blood 213 mg/dL (70-110)
[2023-03-20] MEDS ORDERED: MIRTAZAPINE 15 MG TAB PO SCH (21:00)
[2023-03-21 01:42] VITALS: PULSE 87; RESP 16
[2023-03-21] MEDS: D5-0.45% NACL WITH KCL 20MEQ/L 1,000 ML IV SCH (01:51)
--- NOTE | 2023-03-21 05:32 | PN ---
PROGRESS NOTE DATE OF SERVICE: 03/20/2023 CHIEF COMPLAINT: DKA. HISTORY: This gentleman is doing well. His gap is closed. He is still little bit lethargic. He is nauseated and has been throwing up. PHYSICAL EXAMINATION: CHEST: Clear. CARDIAC: Normal. ABDOMEN: Flat, soft, nontender. Bowel sounds are present. IMPRESSION: 1. DKA. 2. Dehydration. 3. Depression. PLAN: Resume his long-acting insulin along with sliding scale, and advance his diet. MMODL / IJN: [id number] /
[2023-03-21 07:12] LABS: Glucose,Whole Blood 343 mg/dL (70-110)
[2023-03-21 08:24] VITALS: BP 119/79; TEMP 98.5
[2023-03-21] MEDS: INSULIN DETEMIR (LEVEMIR) 100 UNIT/ML SYR SQ SCH (09:19)
[2023-03-21] MEDS: INSULIN ASPART (NovoLOG) 100 UNIT/ML VIAL SQ SCH ×2 (09:19→13:37)
[2023-03-21] MEDS: buPROPion XL 150 MG TAB.ER.24H PO SCH (09:20)
[2023-03-21 11:53] VITALS: BMI 17.2
[2023-03-21 12:12] LABS: Glucose,Whole Blood 223 mg/dL (70-110)
--- NOTE | 2023-03-21 16:10 | P.PN ---
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 Anion gap is closed. Serum bicarb is up to 21 with a gap of 10. Blood sugars at 211. The patient is currently on IV fluids at 50 mL an hour of D5 half-normal saline. Insulin drip has been discontinued. He was transitioned to Levemir insulin 30 units. He wants to proceed with foods. No other complaints otherwise for now. On today's evaluation of 03/21/2023, the patient is tolerating diet. No respiratory difficulties. No nausea or emesis. Blood sugars at 223. No new complaints. Anion gap metabolic acidosis is closed and the patient is currently on Levemir insulin 30 units daily along with a slight scale coverage. Psychiatric consultation was also obtained. Objective - Vital Signs Vital signs: Vital Signs Temp 98.5 F 03/21/23 07:14 Pulse 87 03/21/23 07:14 Resp 16 03/21/23 08:00 BP 119/79 03/21/23 07:14 Pulse Ox 98 03/21/23 07:14 FiO2 Intake & Output 03/20/23 03/21/23 03/21/23 18:59 06:59 18:59 Intake Total 350 Output Total 10 Balance 340 Weight 62.6 kg Intake: IV 350 D5-0.45% NaCl with KCl 350 20Meq/l 1,000 ml @ 50 mls /hr IV .Q20H [facility] Rx#: [id number] Output: Urine 10 Other: Voiding Method Toilet Toilet Toilet # Voids 1 - Exam The patient appeared well nourished and normally developed. Vital signs as documented. Head exam is unremarkable. No scleral icterus or corneal arcus noted. Neck is without jugular venous distension, thyromegaly, or carotid bruits. Carotid upstrokes are brisk bilaterally. Lungs are clear to auscultation and percussion. Cardiac exam reveals the PMI to be normally sized and situated. Rhythm is regular. First and second heart sounds normal. No murmurs, rubs or gallops. Abdominal exam reveals normal bowel sounds, no masses, no organomegaly and no aortic enlargement. Extremities are nonedematous and both femoral and pedal pulses are normal. - Labs CBC & Chem 7: 03/20/23 09:51 03/20/23 16:06 Labs: Abnormal Lab Results - Last 24 Hours (Table) 03/20/23 03/20/23 03/21/23 Range/Units 16:06 20:08 07:10 Sodium 127 L (137-145) mmol/L Chloride 97 L (98-107) mmol/L Creatinine 0.55 L (0.66-1.25) mg/dL POC Glucose (mg/dL) 213 H 343 H (70-110) mg/dL Phosphorus 1.6 L (2.5-4.5) mg/dL Total Protein 5.4 L (6.3-8.2) g/dL Albumin 3.1 L (3.5-5.0) g/dL 03/21/23 Range/Units 12:11 Sodium (137-145) mmol/L Chloride (98-107) mmol/L Creatinine (0.66-1.25) mg/dL POC Glucose (mg/dL) 223 H (70-110) mg/dL Phosphorus (2.5-4.5) mg/dL Total Protein (6.3-8.2) g/dL Albumin (3.5-5.0) g/dL Assessment and Plan Assessment: Acute diabetic ketoacidosis, secondary to medication noncompliance. Patient has had numerous episodes of DKA, and he was recently discharged two days ago for the same. The patient has improved and anion gap metabolic acidosis is recovered and the patient has been transitioned to long-acting insulin Severe anion gap metabolic acidosis, secondary to above and lactic acidosis, recovered Dehydration, recovered Acute kidney injury, secondary to above, recovered Hyperkalemia, recovered Type 1 diabetes mellitus, with poor compliance. Acute leukocytosis, likely reactive to DKA Thrombocytosis Diabetic neuropathy History of major depression Chronic marijuana use Chronic ongoing nicotine dependence Plan: Levemir insulin 30 units daily along with a slight scale coverage Carbohydrate consistent diet Psychiatric consultation is obtained The patient is to be discharged to his mother's house
--- NOTE | 2023-03-26 01:25 | DS ---
DISCHARGE SUMMARY CHIEF COMPLAINT: Diabetic ketoacidosis. HISTORY OF PRESENT ILLNESS AND PHYSICAL EXAM: Details of this man's history and physical can be found in the initial workup. LABORATORY STUDIES: While he was in the hospital, he had laboratory studies, details of which can be found in the laboratory section of his chart. COURSE IN HOSPITAL: After admission, he was placed on bedrest, started on intravenous fluids and DKA protocol. Blood sugars came down. He was doing well. He did have some trouble with nausea and vomiting, but this was controlled, managed and he was able to eat regular meal, was up and about and he will be discharged on the and followed up in the office. FINAL DIAGNOSES: 1. Diabetic ketoacidosis. 2. Uncontrolled type 1 insulin-dependent diabetes mellitus. 3. Noncompliant patient. 4. Depression. OPERATIONS: None. CONSULTATIONS: ICU management. GRACE / ALDEN: [id number] /
== END 2023-03-21 14:05 | disposition home or self-care (01) | DRG 420 ==
LOC: EC 02:50 → 2SICU 03:57 → 5NMEDONC 03-20 13:08
PROVIDERS: ADMIT Family Medicine; ATTEND Family Medicine
DX: E10.10 Type 1 diabetes mellitus with ketoacidosis without coma (principal); R65.11 Systemic inflammatory response syndrome (SIRS) of non-infectious origin with acute organ dysfunction; Z79.4 Long term (current) use of insulin; D75.839 Thrombocytosis, unspecified; E10.40 Type 1 diabetes mellitus with diabetic neuropathy, unspecified; E86.0 Dehydration; E87.5 Hyperkalemia; F17.210 Nicotine dependence, cigarettes, uncomplicated; F32.9 Major depressive disorder, single episode, unspecified; N17.9 Acute kidney failure, unspecified; Z82.49 Family history of ischemic heart disease and other diseases of the circulatory system; T38.3X6A Underdosing of insulin and oral hypoglycemic [antidiabetic] drugs, initial encounter; Z91.128 Patient's intentional underdosing of medication regimen for other reason; Z56.0 Unemployment, unspecified; F17.290 Nicotine dependence, other tobacco product, uncomplicated; F60.3 Borderline personality disorder; Z91.51 Personal history of suicidal behavior; L30.9 Dermatitis, unspecified
CPT/HCPCS: 36415; 80048; 80051; 80053; 81003; 82009; 82565; 82803; 82947; 83605; 84100; 84520; 85025; 85027; 85610; 85730; 93005; 96361; 96374; 96375; 99291

== ENCOUNTER 2023-04-29 02:28 | Inpatient (IN) | payer OTHER ==
[2023-04-29 02:38] LABS: Glucose,Whole Blood >600 mg/dL (70-110)
[2023-04-29] MEDS ORDERED: SODIUM CHLORIDE 0.9% 1,000 ML IV STA ×2 (02:39→03:36)
--- NOTE | 2023-04-29 02:39 | ED ---
Recheck HPI - General Chief Complaint: Recheck/Abnormal Lab/Rx Stated Complaint: Hyperglycemia Time Seen by Provider: 04/29/23 02:39 Source: EMS, RN notes reviewed, old records reviewed Mode of arrival: EMS Limitations: altered mental status, physical limitation - History of Present Illness Initial Comments: This is a 27-year-old male to ER in significant distress, extremities, unable to give history secondary to inability to speak due to confusion altered mental status and significant work of breathing, increased respiratory rate. Patient is brought in by EMS for uncontrolled blood sugar patient is well-known to this emergency department for psychiatric illness and severe and debilitating diabetes MD Complaint: abnormal lab (Elevated blood sugar) -: unknown Returns Today for: Called Because of Abnormal Lab/Test, persistent/worsening pain related to initial visit Context: planned re-check, called for abnormal lab result Associated Symptoms: none Treatments Prior to Arrival: other - Related Data Home Medications Medication Instructions Recorded Confirmed Insulin Detemir (Levemir) [Levemir] 30 unit SQ HS 03/07/23 04/29/23 Ergocalciferol [Vitamin D2 (1250 1,250 mcg PO QMONTHLY 04/29/23 04/29/23 Mcg = [id number] Iu)] Famotidine [Pepcid] 20 mg PO BID 04/29/23 04/29/23 Gabapentin 600 mg PO TID 04/29/23 04/29/23 Insulin Lispro [Insulin Lispro 7 units SQ AC-TID 04/29/23 04/29/23 Kwikpen U-100] Losartan Potassium 50 mg PO DAILY 04/29/23 04/29/23 Mirtazapine 7.5 mg PO HS 04/29/23 04/29/23 Allergies Allergy/AdvReac Type Severity Reaction Status Date / Time No Known Allergies Allergy Verified 04/29/23 09:10 Review of Systems ROS Statement: Those systems with pertinent positive or pertinent negative responses have been documented in the HPI. ROS Other: All systems not noted in ROS Statement are negative. Past Medical History Past Medical History: Asthma, Diabetes Mellitus, Neurologic Disorder, Skin Disorder Additional Past Medical History / Comment(s): IDDM type I, neuropathy bilateral feet, DKA, eczema. History of Any Multi-Drug Resistant Organisms: None Reported Past Surgical History: Adenoidectomy Additional Past Surgical History / Comment(s): 2003 Recent EGD- gastritis Past Anesthesia/Blood Transfusion Reactions: No Reported Reaction Past Psychological History: Anxiety, Depression Smoking Status: Former smoker Past Alcohol Use History: None Reported Past Drug Use History: Marijuana - Past Family History Mother Family Medical History: CVA/TIA Additional Family Medical History / Comment(s): TIA Father Family Medical History: Hyperlipidemia, Hypertension Additional Family Medical History / Comment(s): . General Exam Limitations: altered mental status, physical limitation General appearance: alert, anxious, in distress Head exam: Present: atraumatic, normocephalic, normal inspection Eye exam: Present: normal appearance, PERRL, EOMI. Absent: scleral icterus, conjunctival injection, periorbital swelling ENT exam: Present: normal exam, mucous membranes moist Neck exam: Present: normal inspection. Absent: tenderness, meningismus, lymphadenopathy Respiratory exam: Present: respiratory distress, accessory muscle use, decreased breath sounds. Absent: wheezes, rales, rhonchi, stridor Cardiovascular Exam: Present: normal rhythm, tachycardia, normal heart sounds. Absent: systolic murmur, diastolic murmur, rubs, gallop, clicks GI/Abdominal exam: Present: soft, normal bowel sounds. Absent: distended, tenderness, guarding, rebound, rigid Extremities exam: Present: normal inspection, full ROM, normal capillary refill. Absent: tenderness, pedal edema, joint swelling, calf tenderness Back exam: Present: normal inspection Neurological exam: Present: alert, oriented X3, CN II-XII intact Psychiatric exam: Present: normal affect, normal mood Skin exam: Present: warm, dry, intact, normal color. Absent: rash Course Vital Signs 04/29/23 04/29/23 04/29/23 02:32 03:35 04:35 Temperature 97.4 F L Pulse Rate 124 H 116 H 105 H Respiratory 22 22 22 Rate Blood Pressure 108/62 95/59 95/57 O2 Sat by Pulse 100 100 100 Oximetry 04/29/23 04/29/23 06:12 07:00 Temperature 98.0 F Pulse Rate 104 H 108 H Respiratory 20 15 Rate Blood Pressure 105/66 105/59 O2 Sat by Pulse 100 98 Oximetry - Reevaluation(s) Reevaluation #1: 04/29/23 06:14 Record is reviewed Reevaluation #2: 04/29/23 06:14 Patient has no improvement here in the ER Reevaluation #3: 04/29/23 06:14 Patient informed results questions answered Reevaluation #4: 04/29/23 05:04 Was pt. sent in by a medical professional or institution (JAS Lucero, HOSPITAL FOOD SERVICE WORKER, urgent care, hospital, or penitentiary...) When possible be specific @ -no Did you speak to anyone other than the patient for history (EMS, parent, family, police, friend...)? What history was obtained from this source @ -no Did you review nursing and triage notes (agree or disagree)? Why? @ -agree Are old charts reviewed (outside hosp., previous admission, EMS record, old EKG, old radiological studies, urgent care reports/EKG's, penitentiary records)? Report findings @ -yes Differential Diagnosis (chest pain, altered mental status, abdominal pain women, abdominal pain men, vaginal bleeding, weakness, fever, dyspnea, syncope, headache, dizziness, GI bleed, back pain, seizure, CVA, palpatations, mental health, musculoskeletal)? @ -prior EKG interpreted by me (3pts min.). @ -yes X-rays interpreted by me (1pt min.). @ -yes negative for acute disease CT interpreted by me (1pt min.). @ -no U/S interpreted by me (1pt. min.). @ -no What testing was considered but not performed or refused? (CT, X-rays, U/S, labs)? Why? @ -none What meds were considered but not given or refused? Why? @ -none Did you discuss the management of the patient with other professionals (professionals i.e. JAS Lucero, HOSPITAL FOOD SERVICE WORKER, lab, RT, psych nurse, outreach and education social worker, small battery plate assembler, teacher, property and supply officer, case aide)? Give summary @ -no Was smoking cessation discussed for >3mins.? @ -no Was critical care preformed (if so, how long)? @ -yes31 Were there social determinants of health that impacted care today? How? (Homelessness, low income, unemployed, alcoholism, drug addiction, transportation, low edu. Level, literacy, decrease access to med. care, custodial, rehab)? @ -none Was there de-escalation of care discussed even if they declined (Discuss DNR or withdrawal of care, Hospice)? DNR status @ -no What co-morbidities impacted this encounter? (DM, HTN, Smoking, COPD, CAD, Cancer, CVA, ARF, Chemo, Hep., AIDS, mental health diagnosis, sleep apnea, morbid obesity)? @ -none Was patient admitted / discharged? Hospital course, mention meds given and route, prescriptions, significant lab abnormalities, going to OR and other pertinent info. @ - 27 male in severe and significant distress due to diabetes, diabetic ketoacidosis, severe tachypnea with multiple electrolyte abnormalities Admitted Undiagnosed new problem with uncertain prognosis? @ -no Drug Therapy requiring intensive monitoring for toxicity (Heparin, Nitro, Insulin, Cardizem)? @ -no Were any procedures done? @ -no Diagnosis/symptom? @ -DKA Acute, or Chronic, or Acute on Chronic? @ -Acute Uncomplicated (without systemic symptoms) or Complicated (systemic symptoms)? @ -Complicated Side effects of treatment? @ -no Exacerbation, Progression, or Severe Exacerbation? @ -exacerbation Poses a threat to life or bodily function? How? (Chest pain, USA, NE, pneumonia, PE, COPD, DKA, ARF, appy, cholecystitis, CVA, Diverticulitis, Homicidal, Suicidal, threat to staff... and all critical care pts) @ -yes severe DKA Reevaluation #5: 04/29/23 05:04 Differential Weakness: Hypoglycemia, shock, sepsis, hyponatremia, anemia, infection, NE, ETOH, adverse medicine reaction, overdose, stroke, this is not meant to be an all-inclusive list. Differential Dyspnea: Coronary syndrome, arrhythmia, tamponade, asthma, COPD, pulmonary embolism, pneumonia, pneumothorax, pulmonary effusion, anaphylaxis, diabetic ketoacidosis, flailed chest, pulmonary contusion, diaphragmatic rupture, anemia, neuromuscular, this is not meant to be an all-inclusive list. - Consultations Consultation #1: Spoke with ICU who agrees to admit this patient Consultation #2: Spoke with Dr. Valenzuela agrees to admit this patient Medical Decision Making - Medical Decision Making 27 male in severe and significant distress due to diabetes, diabetic ketoacidosis, severe tachypnea with multiple electrolyte abnormalities - Lab Data Result diagrams: 05/01/23 08:18 05/01/23 08:20 Lab Results 04/29/23 04/29/23 04/29/23 Range/Units 02:31 02:52 02:52 WBC 38.9 H (3.8-10.6) k/uL RBC 4.75 (4.30-5.90) m/uL Hgb 13.5 (13.0-17.5) gm/dL Hct 48.3 (39.0-53.0) % MCV 101.7 H D (80.0-100.0) fL MCH 28.5 (25.0-35.0) pg MCHC 28.0 L (31.0-37.0) g/dL RDW 14.7 (11.5-15.5) % Plt Count 185 D (150-450) k/uL MPV 9.7 Neutrophils % Not Reportable Neutrophils % (Manual) 71 % Band Neuts % (Manual) 18 % Lymphocytes % Not Reportable Lymphocytes % (Manual) 9 % Monocytes % Not Reportable Monocytes % (Manual) 2 % Eosinophils % Not Reportable Basophils % Not Reportable Metamyelocytes % 1 % Neutrophils # Not Reportable Neutrophils # (Manual) 34.60 H (1.3-7.7) k/uL Lymphocytes # Not Reportable Lymphocytes # (Manual) 3.50 (1.0-4.8) k/uL Monocytes # Not Reportable Monocytes # (Manual) 0.78 (0-1.0) k/uL Eosinophils # Not Reportable Basophils # Not Reportable Metamyelocytes # (Man) 0.39 H (0) k/uL Nucleated RBCs 0 (0-0) /100 WBC Manual Slide Review Performed Toxic Granulation Present Toxic Vacuolation Present Polychromasia Present Hypochromasia Marked Macrocytosis Slight PT 11.1 (10.0-12.5) sec INR 1.0 (<1.2) APTT 18.9 L (22.0-30.0) sec VBG pH (7.31-7.41) VBG pCO2 (37-51) mmHg VBG HCO3 (24-28) mmol/L Sodium (137-145) mmol/L Potassium (3.5-5.1) mmol/L Chloride (98-107) mmol/L Carbon Dioxide (22-30) mmol/L Anion Gap mmol/L BUN (9-20) mg/dL Creatinine (0.66-1.25) mg/dL Est GFR (CKD-EPI)AfAm (>60 ml/min/1.73 sqM) Est GFR (CKD-EPI)NonAf (>60 ml/min/1.73 sqM) Glucose (74-99) mg/dL POC Glucose (mg/dL) >600 H (70-110) mg/dL POC Glu Construction Tech Eliezer Estrada Plasma Lactic Acid Len (0.7-2.0) mmol/L Calcium (8.4-10.2) mg/dL Phosphorus (2.5-4.5) mg/dL Magnesium (1.6-2.3) mg/dL Total Bilirubin (0.2-1.3) mg/dL AST (17-59) U/L ALT (4-49) U/L Alkaline Phosphatase (38-126) U/L Troponin I (0.000-0.034) ng/mL Total Protein (6.3-8.2) g/dL Albumin (3.5-5.0) g/dL Urine Color Urine Appearance (Clear) Urine pH (5.0-8.0) Ur Specific [place] (1.001-1.035) Urine Protein (Negative) Urine Glucose (UA) (Negative) Urine Ketones (Negative) Urine Blood (Negative) Urine Nitrite (Negative) Urine Bilirubin (Negative) Urine Urobilinogen (<2.0) mg/dL Ur Leukocyte Esterase (Negative) Serum Alcohol mg/dL Acetone, Qual (Negative) 04/29/23 04/29/23 04/29/23 Range/Units 02:52 02:52 02:52 WBC (3.8-10.6) k/uL RBC (4.30-5.90) m/uL Hgb (13.0-17.5) gm/dL Hct (39.0-53.0) % MCV (80.0-100.0) fL MCH (25.0-35.0) pg MCHC (31.0-37.0) g/dL RDW (11.5-15.5) % Plt Count (150-450) k/uL MPV Neutrophils % Neutrophils % (Manual) % Band Neuts % (Manual) % Lymphocytes % Lymphocytes % (Manual) % Monocytes % Monocytes % (Manual) % Eosinophils % Basophils % Metamyelocytes % % Neutrophils # Neutrophils # (Manual) (1.3-7.7) k/uL Lymphocytes # Lymphocytes # (Manual) (1.0-4.8) k/uL Monocytes # Monocytes # (Manual) (0-1.0) k/uL Eosinophils # Basophils # Metamyelocytes # (Man) (0) k/uL Nucleated RBCs (0-0) /100 WBC Manual Slide Review Toxic Granulation Toxic Vacuolation Polychromasia Hypochromasia Macrocytosis PT (10.0-12.5) sec INR (<1.2) APTT (22.0-30.0) sec VBG pH (7.31-7.41) VBG pCO2 (37-51) mmHg VBG HCO3 (24-28) mmol/L Sodium 137 (137-145) mmol/L Potassium 7.0 H* (3.5-5.1) mmol/L Chloride 94 L (98-107) mmol/L Carbon Dioxide <5 L* (22-30) mmol/L Anion Gap mmol/L BUN 39 H (9-20) mg/dL Creatinine 2.01 H (0.66-1.25) mg/dL Est GFR (CKD-EPI)AfAm 52 (>60 ml/min/1.73 sqM) Est GFR (CKD-EPI)NonAf 45 (>60 ml/min/1.73 sqM) Glucose 929 H* (74-99) mg/dL POC Glucose (mg/dL) (70-110) mg/dL POC Glu Construction Tech ID Plasma Lactic Acid Len 4.8 H* (0.7-2.0) mmol/L Calcium 9.3 (8.4-10.2) mg/dL Phosphorus 12.8 H* (2.5-4.5) mg/dL Magnesium 2.4 H (1.6-2.3) mg/dL Total Bilirubin 0.5 (0.2-1.3) mg/dL AST 32 (17-59) U/L ALT 27 (4-49) U/L Alkaline Phosphatase 122 (38-126) U/L Troponin I (0.000-0.034) ng/mL Total Protein 7.6 (6.3-8.2) g/dL Albumin 5.1 H (3.5-5.0) g/dL Urine Color Light Yellow Urine Appearance Clear (Clear) Urine pH 5.0 (5.0-8.0) Ur Specific [place] 1.025 (1.001-1.035) Urine Protein Trace H (Negative) Urine Glucose (UA) 4+ H (Negative) Urine Ketones 3+ H (Negative) Urine Blood Negative (Negative) Urine Nitrite Negative (Negative) Urine Bilirubin Negative (Negative) Urine Urobilinogen 0.2 (<2.0) mg/dL Ur Leukocyte Esterase Negative (Negative) Serum Alcohol <10 mg/dL Acetone, Qual Positive (Negative) 04/29/23 04/29/23 Range/Units 02:52 02:55 WBC (3.8-10.6) k/uL RBC (4.30-5.90) m/uL Hgb (13.0-17.5) gm/dL Hct (39.0-53.0) % MCV (80.0-100.0) fL MCH (25.0-35.0) pg MCHC (31.0-37.0) g/dL RDW (11.5-15.5) % Plt Count (150-450) k/uL MPV Neutrophils % Neutrophils % (Manual) % Band Neuts % (Manual) % Lymphocytes % Lymphocytes % (Manual) % Monocytes % Monocytes % (Manual) % Eosinophils % Basophils % Metamyelocytes % % Neutrophils # Neutrophils # (Manual) (1.3-7.7) k/uL Lymphocytes # Lymphocytes # (Manual) (1.0-4.8) k/uL Monocytes # Monocytes # (Manual) (0-1.0) k/uL Eosinophils # Basophils # Metamyelocytes # (Man) (0) k/uL Nucleated RBCs (0-0) /100 WBC Manual Slide Review Toxic Granulation Toxic Vacuolation Polychromasia Hypochromasia Macrocytosis PT (10.0-12.5) sec INR (<1.2) APTT (22.0-30.0) sec VBG pH 6.93 L* (7.31-7.41) VBG pCO2 18 L* (37-51) mmHg VBG HCO3 4 L* (24-28) mmol/L Sodium (137-145) mmol/L Potassium (3.5-5.1) mmol/L Chloride (98-107) mmol/L Carbon Dioxide (22-30) mmol/L Anion Gap mmol/L BUN (9-20) mg/dL Creatinine (0.66-1.25) mg/dL Est GFR (CKD-EPI)AfAm (>60 ml/min/1.73 sqM) Est GFR (CKD-EPI)NonAf (>60 ml/min/1.73 sqM) Glucose (74-99) mg/dL POC Glucose (mg/dL) (70-110) mg/dL POC Glu Construction Tech ID Plasma Lactic Acid Len (0.7-2.0) mmol/L Calcium (8.4-10.2) mg/dL Phosphorus (2.5-4.5) mg/dL Magnesium (1.6-2.3) mg/dL Total Bilirubin (0.2-1.3) mg/dL AST (17-59) U/L ALT (4-49) U/L Alkaline Phosphatase (38-126) U/L Troponin I <0.012 (0.000-0.034) ng/mL Total Protein (6.3-8.2) g/dL Albumin (3.5-5.0) g/dL Urine Color Urine Appearance (Clear) Urine pH (5.0-8.0) Ur Specific [place] (1.001-1.035) Urine Protein (Negative) Urine Glucose (UA) (Negative) Urine Ketones (Negative) Urine Blood (Negative) Urine Nitrite (Negative) Urine Bilirubin (Negative) Urine Urobilinogen (<2.0) mg/dL Ur Leukocyte Esterase (Negative) Serum Alcohol mg/dL Acetone, Qual (Negative) - EKG Data -: EKG Interpreted by Me (EKG is sinus around 150, QRS 187 QTC 256 elevation T waves) - Radiology Data Radiology results: report reviewed (Chest x-rays negative for acute disease), image reviewed Critical Care Time Critical Care Time: Yes Total Critical Care Time: 31 Disposition Clinical Impression: Mood disorder, Confusion, DKA (diabetic ketoacidoses), Poorly controlled type 1 diabetes mellitus, Nausea & vomiting, Hyperglycemia, Dehydration, Tachycardia, Hyperkalemia Disposition: ADMITTED IP TO THIS HOSP Condition: Critical Is patient prescribed a controlled substance at d/c from ED?: No Time of Disposition: 04:00
[2023-04-29] MEDS ORDERED: SODIUM BICARB 8.4% 50 ML SYR (1 MEQ/ML) IV STA ×2 (02:54→03:38)
[2023-04-29] MEDS ORDERED: LORazepam 2 MG/ML INJ IV STA (02:54)
[2023-04-29] MEDS ORDERED: HYDROmorphone 1 MG/ML 1 ML SYRINGE IVP STA (02:54)
[2023-04-29] MEDS ORDERED: INSULIN REGULAR 100 UNIT/ML VIAL (IV) IV ONE (02:54)
[2023-04-29 03:12] LABS: HCT 48.3 % (39.0-53.0); HGB 13.5 gm/dL (13.0-17.5); Hypochromasia Marked; MCH 28.5 pg (25.0-35.0); Macrocytosis Slight; Mean Platelet Volume 9.7; RBC 4.75 m/uL (4.30-5.90); RDW 14.7 % (11.5-15.5); WBC 38.9 k/uL (3.8-10.6)
[2023-04-29 03:30] LABS: MCV 101.7 fL (80.0-100.0)
[2023-04-29 03:31] LABS: Platelet Count 185 k/uL (150-450)
[2023-04-29 03:35] LABS: VBG PH 6.93 (7.31-7.41)
[2023-04-29 03:36] LABS: ALT 27 U/L (4-49); African American GFR (CKD) 52 (>60 ml/min/1.73 sqM); Albumin 5.1 g/dL (3.5-5.0); Alcohol <10 mg/dL; Blood Urea Nitrogen 39 mg/dL (9-20); Calcium 9.3 mg/dL (8.4-10.2); Chloride 94 mmol/L (98-107); Non-African American GFR(CKD) 45 (>60 ml/min/1.73 sqM); Sodium 137 mmol/L (137-145); Total Bilirubin 0.5 mg/dL (0.2-1.3); Total Protein 7.6 g/dL (6.3-8.2)
[2023-04-29] MEDS ORDERED: SODIUM CHLORIDE 0.9% 500 ML 500 ML IV STA (03:36)
[2023-04-29] MEDS ORDERED: HYDROmorphone 1 MG/ML 1 ML SYRINGE IVP PRN (03:38)
[2023-04-29] MEDS ORDERED: NALOXONE 0.4 MG/ML 1 ML VIAL IV PRN (03:38)
[2023-04-29 03:48] LABS: AST 32 U/L (17-59); Carbon Dioxide <5 mmol/L (22-30); Glucose 929 mg/dL (74-99); Magnesium 2.4 mg/dL (1.6-2.3); Phosphorus 12.8 mg/dL (2.5-4.5)
[2023-04-29 03:49] LABS: Alkaline Phosphatase 122 U/L (38-126)
[2023-04-29 03:57] LABS: Prothrombin Time 11.1 sec (10.0-12.5)
[2023-04-29 04:31] LABS: Partial Thromboplastin Time 18.9 sec (22.0-30.0)
[2023-04-29 04:33] LABS: Glucose,Whole Blood >600 mg/dL (70-110)
[2023-04-29] MEDS: INSULIN REGULAR 100 UNIT in SODIUM CHLORIDE 0.9% 100 ML IV SCH ×4 (04:35→22:33)
[2023-04-29] MEDS: SODIUM CHLORIDE 0.9% 1,000 ML IV SCH ×5 (04:37→23:53)
[2023-04-29 04:59] LABS: African American GFR (CKD) 67 (>60 ml/min/1.73 sqM); Blood Urea Nitrogen 40 mg/dL (9-20); Chloride 103 mmol/L (98-107); Non-African American GFR(CKD) 58 (>60 ml/min/1.73 sqM); Potassium 5.6 mmol/L (3.5-5.1); Sodium 144 mmol/L (137-145)
[2023-04-29 05:02] LABS: Appearance,Urine Clear (Clear); Color,Urine Light Yellow; Specific Gravity,Urine 1.025 (1.001-1.035)
[2023-04-29 05:03] LABS: Bilirubin,Urine Negative (Negative); Blood,Urine Negative (Negative); Glucose,Urine (UA) 4+ (Negative); Ketones,Urine 3+ (Negative); Leukocyte Esterase,Urine Negative (Negative); Nitrite,Urine Negative (Negative); Protein,Urine Trace (Negative); Urobilinogen,Urine 0.2 mg/dL (<2.0)
[2023-04-29 05:11] LABS: Carbon Dioxide <5 mmol/L (22-30); Glucose 715 mg/dL (74-99)
[2023-04-29 05:35] LABS: Band Neutrophils % 18 %; Metamyelocytes # (M) 0.39 k/uL (0); Metamyelocytes % 1 %; Monocytes # (M) 0.78 k/uL (0-1.0); Neutrophils % (M) 71 %; Nucleated Red Blood Cells 0 /100 WBC (0-0); Polychromasia Present; Total Cells Counted 200; Toxic Granulation Present; Toxic Vacuolation Present
[2023-04-29 05:40] LABS: Glucose,Whole Blood 541 mg/dL (70-110)
--- NOTE | 2023-04-29 06:21 | P.CNPUL ---
History of Present Illness Consult date: 04/29/23 Requesting physician: Julian Posadas Reason for consult: other (ICU management; DKA) Chief complaint: Nausea and vomiting and high blood sugars History of present illness: This is a 27-year-old white male with past medical history significant for type 1 diabetes mellitus and medication noncompliance. Patient has had numerous hospital admissions for diabetic ketoacidosis, most recent hospital admission back on 03/19/2023 for the same. Patient was brought in earlier this morning by EMS, he was confused and tachypneic. Patient's blood sugars were elevated at home. Patient states that he was taking his insulin. He was having nausea and vomiting. Denies any abdominal pain, diarrhea, constipation, hematemesis. Denies any infectious symptoms. He was found to be in DKA. Serum bicarb was less than 5, anion gap unmeasurable, glucose 929, and he was acetone positive. Patient has been started on the DKA protocol. Insulin is currently infusing at 5.6 units per hour. He was also severely hyperkalemic on arrival, with a potassium of 7. Hyperacute T waves seen on EKG. He was given 2 amps of sodium bicarb. CBC on arrival showed some leukocytosis with a WBC count of 38.9, hemoglobin 13.5, hematocrit 48.3, platelets 185. He received 2.5 L normal saline bolus in the emergency room. Normal saline is currently infusing at 200 ml per hour. Most recent BMP shows sodium 144, potassium down to 5.6, chloride 103, serum bicarb still less than 5, anion gap unmeasurable, creatinine down to 1.63, most recent glucose 541. Urinalysis not concerning for UTI. Positive for ketones. Patient is currently lying in bed, in no acute distress, able answer most of my questions. He is on room air. SpO2 is 99%. Blood pressure is normotensive after fluid resuscitation. He will be admitted to the intensive care unit once bed available. Review of Systems REVIEW OF SYSTEMS: CONSTITUTIONAL: Denies any recent significant weight loss or weight gain. EYES: Denies change in vision. EARS, NOSE, MOUTH, THROAT: Denies headaches, denies sore throat. CARDIOVASCULAR: Denies chest pain, palpitations or syncopal episodes. RESPIRATORY: Denies shortness of breath, cough, congestion or hemoptysis. GASTROINTESTINAL: Denies change in appetite, abdominal pain,or diarrhea. Admits nausea and vomiting following elevated blood sugars. GENITOURINARY: Denies hematuria, denies infections. MUSKULOSKELETAL: Denies pain, denies swelling. INTEGUMENTARY: Denies rash, denies eczema. NEUROLOGICAL: Denies recent memory loss, no recent seizure activity. PSYCHIATRIC: Denies anxiety, denies depression. HEMATOLOGIC/LYMPHATIC: Denies anemia, denies enlarged lymph node Past Medical History Past Medical History: Asthma, Diabetes Mellitus, Neurologic Disorder, Skin Disorder Additional Past Medical History / Comment(s): IDDM type I, neuropathy bilateral feet, DKA, eczema. History of Any Multi-Drug Resistant Organisms: None Reported Past Surgical History: Adenoidectomy Additional Past Surgical History / Comment(s): 2002 Recent EGD- gastritis Past Anesthesia/Blood Transfusion Reactions: No Reported Reaction Past Psychological History: Anxiety, Depression Smoking Status: Former smoker Past Alcohol Use History: None Reported Past Drug Use History: Marijuana - Past Family History Mother Family Medical History: CVA/TIA Additional Family Medical History / Comment(s): TIA Father Family Medical History: Hyperlipidemia, Hypertension Additional Family Medical History / Comment(s): . Medications and Allergies Home Medications Medication Instructions Recorded Confirmed Type Insulin Detemir (Levemir) [Levemir] 30 unit SQ DIRECTED 03/07/23 03/19/23 History Allergies Allergy/AdvReac Type Severity Reaction Status Date / Time No Known Allergies Allergy Verified 04/29/23 02:35 Physical Exam Vitals: Vital Signs Temp Pulse Resp BP Pulse Ox 04/29/23 04:35 105 H 22 95/57 100 04/29/23 03:35 116 H 22 95/59 100 04/29/23 02:32 97.4 F L 124 H 22 108/62 100 Intake and Output 04/28/23 04/28/23 04/29/23 14:59 22:59 06:59 Other: Weight 56.699 kg GENERAL EXAM: Alert, disheveled 27-year-old white male, comfortable in no apparent distress. HEAD: Normocephalic and atraumatic EYES: Normal reaction of pupils, equal size. NOSE: Clear with pink turbinates. THROAT: No erythema or exudates. Poor dentition NECK: No masses, no JVD. CHEST: No chest wall deformity. LUNGS: Equal air entry with no crackles, wheeze, rhonchi or dullness. On room air. No conversational dyspnea or accessory muscle use.. CVS: S1 and S2 normal with no audible murmur, regular rhythm. No extra heart sounds ABDOMEN: No hepatosplenomegaly, active bowel sounds, no guarding or rigidity. SPINE: No scoliosis or deformity SKIN: No rashes CENTRAL NERVOUS SYSTEM: No focal deficits, tone is normal in all 4 extremities. EXTREMITIES: There is no peripheral edema, clubbing, or cyanosis. Peripheral pulses are intact. Results - Laboratory Findings CBC and BMP: 04/29/23 02:52 04/29/23 04:23 PT/INR, D-dimer PT 11.1 sec (10.0-12.5) 04/29/23 02:52 INR 1.0 (<1.2) 04/29/23 02:52 Abnormal lab findings: Abnormal Labs 04/29/23 04/29/23 04/29/23 02:31 02:52 02:52 WBC 38.9 H MCV 101.7 H D MCHC 28.0 L Neutrophils # (Manual) 34.60 H Metamyelocytes # (Man) 0.39 H APTT 18.9 L VBG pH VBG pCO2 VBG HCO3 Potassium Chloride Carbon Dioxide BUN Creatinine Glucose POC Glucose (mg/dL) >600 H Plasma Lactic Acid Len Phosphorus Magnesium Albumin Urine Protein Urine Glucose (UA) Urine Ketones 04/29/23 04/29/23 04/29/23 02:52 02:52 02:52 WBC MCV MCHC Neutrophils # (Manual) Metamyelocytes # (Man) APTT VBG pH VBG pCO2 VBG HCO3 Potassium 7.0 H* Chloride 94 L Carbon Dioxide <5 L* BUN 39 H Creatinine 2.01 H Glucose 929 H* POC Glucose (mg/dL) Plasma Lactic Acid Len 4.8 H* Phosphorus 12.8 H* Magnesium 2.4 H Albumin 5.1 H Urine Protein Trace H Urine Glucose (UA) 4+ H Urine Ketones 3+ H 04/29/23 04/29/23 04/29/23 02:55 04:23 04:23 WBC MCV MCHC Neutrophils # (Manual) Metamyelocytes # (Man) APTT VBG pH 6.93 L* VBG pCO2 18 L* VBG HCO3 4 L* Potassium 5.6 H Chloride Carbon Dioxide <5 L* BUN 40 H Creatinine 1.63 H Glucose 715 H* POC Glucose (mg/dL) Plasma Lactic Acid Len Phosphorus 10.1 H* Magnesium Albumin Urine Protein Urine Glucose (UA) Urine Ketones 04/29/23 04/29/23 04:30 05:37 WBC MCV MCHC Neutrophils # (Manual) Metamyelocytes # (Man) APTT VBG pH VBG pCO2 VBG HCO3 Potassium Chloride Carbon Dioxide BUN Creatinine Glucose POC Glucose (mg/dL) >600 H 541 H Plasma Lactic Acid Len Phosphorus Magnesium Albumin Urine Protein Urine Glucose (UA) Urine Ketones - Diagnostic Findings Chest x-ray: image reviewed Assessment and Plan Assessment: Acute diabetic ketoacidosis, likely secondary to medication noncompliance. Patient has had numerous episodes of DKA, recently admitted on 03/19/23 for the same Severe anion gap metabolic acidosis, secondary to above and lactic acidosis Severe dehydration Acute kidney injury, prerenal, secondary to above Severe hyperkalemia, improving Hyperphosphatemia Type 1 diabetes mellitus, with poor medication compliance. Acute leukocytosis, likely reactive to DKA Diabetic neuropathy History of major depression Chronic marijuana use Chronic ongoing nicotine dependence Plan: Patient's medications, labs, and chest x-ray were noted Continue DKA protocol Insulin infusion per protocol Fluid resuscitated with 2.5 L normal saline bolus in the emergency room, and has normal saline infusing at 200 ML's per hour Hyperkalemia is improving. There were hyperacute T waves. Continue to monitor electrolytes every 4 hours. Patient will be monitored in the intensive care unit until his DKA resolves. I have personally seen and examined the patient, performed the documentation and the assessment and plan as written. Number of minutes spent on the visit:20 This is a joint evaluation that was done along with a nurse practitioner. This evaluation was done a more than 30 minutes. In summary, the patient is coming in for another episode of DKA. The patient is noncompliant. I do not to rely this patient going home with his mother again as the patient continues not to take his insulin and present back to us with DKA. He may need placement. He may need some sort of an Adult Protective Services to be involved in his care in his condition. We'll ask case management to evaluate the situation. We'll continue treatment of DKA. Awaiting follow-up. His is running at 5.2 units an hour. He is also on normal saline at rate of 200 mL an hour. Being resuscitated with IV fluids. Monitor potassium. Monitor electrolytes. Monitor 9. Monitor sugars. Monitor mental status. Keep nothing by mouth for now. Will follow. Time with Patient: Greater than 30
--- NOTE | 2023-04-29 06:30 | XR ---
EXAM: XR Chest, 1 View CLINICAL HISTORY: ITS.REASON XR Reason: weak TECHNIQUE: Frontal view of the chest. COMPARISON: Single view of the chest March 07, 2023 IMPRESSION: No acute cardiopulmonary abnormality.
[2023-04-29 06:40] LABS: Glucose,Whole Blood 475 mg/dL (70-110)
[2023-04-29 08:04] LABS: Glucose,Whole Blood 375 mg/dL (70-110)
[2023-04-29 08:19] LABS: African American GFR (CKD) 89 (>60 ml/min/1.73 sqM); Anion Gap 25 mmol/L; Blood Urea Nitrogen 38 mg/dL (9-20); Carbon Dioxide 10 mmol/L (22-30); Chloride 112 mmol/L (98-107); Glucose 394 mg/dL (74-99); Non-African American GFR(CKD) 77 (>60 ml/min/1.73 sqM); Sodium 147 mmol/L (137-145)
[2023-04-29 08:45] LABS: Potassium 4.9 mmol/L (3.5-5.1)
[2023-04-29 09:03] LABS: Glucose,Whole Blood 346 mg/dL (70-110)
[2023-04-29 10:04] LABS: Glucose,Whole Blood 273 mg/dL (70-110)
[2023-04-29] MEDS: D5-0.45% NACL WITH KCL 20MEQ/L 1,000 ML IV SCH ×3 (10:17→23:53)
[2023-04-29 11:03] LABS: Glucose,Whole Blood 239 mg/dL (70-110)
[2023-04-29 12:00] LABS: Glucose,Whole Blood 202 mg/dL (70-110)
[2023-04-29] MEDS: ONDANSETRON 4 MG/2 ML VIAL IVP PRN (12:07)
--- NOTE | 2023-04-29 12:56 | P.CN ---
Psychiatric Consult - . Consult date: 04/29/23 Consult:: 04/29/23 12:51 [employer] reviewed the chart and called ICU floors to speak with the RN about patients case and condition. Patient is admitted for DKA and currently being treated for this in the ICU. Patient has a long history of chronic depression, noncompliance with treatment and also medical treatment for his type 1 diabetes. [employer] has seen patient several times in the past and offered psychiatric services and treatment patient has refused care and also refused [facility] follow-up. nurse did not mention that patient atempted suicide or having SI. Please contact or consult psychiatry if patient has a significant worsening of mental health condition and/or suicidal thoughts or attempt. Thank you
[2023-04-29 13:03] LABS: Glucose,Whole Blood 240 mg/dL (70-110)
[2023-04-29 14:27] LABS: Glucose,Whole Blood 213 mg/dL (70-110)
[2023-04-29 15:07] LABS: Glucose,Whole Blood 225 mg/dL (70-110)
[2023-04-29 16:14] LABS: Glucose,Whole Blood 156 mg/dL (70-110)
[2023-04-29 17:14] LABS: Glucose,Whole Blood 155 mg/dL (70-110)
[2023-04-29 18:11] LABS: Glucose,Whole Blood 153 mg/dL (70-110)
[2023-04-29 19:59] LABS: Glucose,Whole Blood 138 mg/dL (70-110)
[2023-04-29 21:02] LABS: Glucose,Whole Blood 115 mg/dL (70-110)
[2023-04-29 22:03] LABS: Glucose,Whole Blood 138 mg/dL (70-110)
[2023-04-29 22:31] LABS: Basophils # (A) 0.1 k/uL (0-0.2); Basophils % (A) 0 %; Eosinophils # (A) 0.1 k/uL (0-0.7); Eosinophils % (A) 0 %; HCT 31.7 % (39.0-53.0); Lymphocytes # (A) 2.2 k/uL (1.0-4.8); Lymphocytes % (A) 8 %; MCH 28.2 pg (25.0-35.0); MCHC 32.8 g/dL (31.0-37.0); Mean Platelet Volume 6.8; Monocytes # (A) 1.4 k/uL (0-1.0); Monocytes % (A) 6 %; Neutrophils # (A) 21.9 k/uL (1.3-7.7); Neutrophils % (A) 85 %; RBC 3.69 m/uL (4.30-5.90); RDW 15.8 % (11.5-15.5); WBC 25.9 k/uL (3.8-10.6)
[2023-04-29 22:45] LABS: African American GFR (CKD) >90 (>60 ml/min/1.73 sqM); Anion Gap 11 mmol/L; Blood Urea Nitrogen 20 mg/dL (9-20); Calcium 7.8 mg/dL (8.4-10.2); Carbon Dioxide 22 mmol/L (22-30); Chloride 103 mmol/L (98-107); Glucose 94 mg/dL (74-99); Non-African American GFR(CKD) >90 (>60 ml/min/1.73 sqM); Potassium 3.4 mmol/L (3.5-5.1); Sodium 136 mmol/L (137-145)
[2023-04-29 22:46] LABS: HGB 10.4 gm/dL (13.0-17.5); MCV 85.9 fL (80.0-100.0); Platelet Count 384 k/uL (150-450)
[2023-04-29 23:05] LABS: Glucose,Whole Blood 135 mg/dL (70-110)
[2023-04-29] MEDS ORDERED: Potassium Replacement Protocol 1 EACH MISC MISCELLANE PRN (23:28)
[2023-04-29] MEDS: POTASSIUM BICARBONATE/CIT AC 20 MEQ TABLET.EFF NG-TUBE SCH (23:54)
[2023-04-30 00:12] LABS: Glucose,Whole Blood 185 mg/dL (70-110)
[2023-04-30 01:22] LABS: Glucose,Whole Blood 232 mg/dL (70-110)
[2023-04-30] MEDS: POTASSIUM BICARBONATE/CIT AC 20 MEQ TABLET.EFF NG-TUBE SCH (01:29)
[2023-04-30 02:07] LABS: Glucose,Whole Blood 243 mg/dL (70-110)
[2023-04-30 03:04] LABS: Glucose,Whole Blood 301 mg/dL (70-110)
[2023-04-30 04:03] LABS: Glucose,Whole Blood 285 mg/dL (70-110)
[2023-04-30 05:00] LABS: Basophils % (A) 0 %; Eosinophils # (A) 0.1 k/uL (0-0.7); Eosinophils % (A) 0 %; HCT 31.1 % (39.0-53.0); HGB 10.1 gm/dL (13.0-17.5); Lymphocytes % (A) 10 %; MCH 28.1 pg (25.0-35.0); MCHC 32.4 g/dL (31.0-37.0); MCV 86.7 fL (80.0-100.0); Mean Platelet Volume 7.5; Monocytes # (A) 1.1 k/uL (0-1.0); Monocytes % (A) 6 %; Neutrophils # (A) 16.5 k/uL (1.3-7.7); Neutrophils % (A) 83 %; Platelet Count 346 k/uL (150-450); RBC 3.59 m/uL (4.30-5.90); RDW 15.6 % (11.5-15.5); WBC 19.9 k/uL (3.8-10.6)
[2023-04-30 05:04] LABS: Glucose,Whole Blood 244 mg/dL (70-110)
[2023-04-30 05:09] LABS: ALT 17 U/L (4-49); AST 20 U/L (17-59); African American GFR (CKD) >90 (>60 ml/min/1.73 sqM); Albumin 3.2 g/dL (3.5-5.0); Alkaline Phosphatase 72 U/L (38-126); Anion Gap 13 mmol/L; Blood Urea Nitrogen 14 mg/dL (9-20); Calcium 7.7 mg/dL (8.4-10.2); Carbon Dioxide 20 mmol/L (22-30); Chloride 101 mmol/L (98-107); Glucose 258 mg/dL (74-99); Non-African American GFR(CKD) >90 (>60 ml/min/1.73 sqM); Phosphorus 1.8 mg/dL (2.5-4.5); Potassium 4.2 mmol/L (3.5-5.1); Sodium 134 mmol/L (137-145); Total Bilirubin 0.4 mg/dL (0.2-1.3); Total Protein 5.5 g/dL (6.3-8.2)
[2023-04-30] MEDS: SODIUM CHLORIDE 0.9% 1,000 ML IV SCH (05:12)
[2023-04-30 06:58] LABS: Glucose,Whole Blood 236 mg/dL (70-110)
[2023-04-30 07:57] LABS: Glucose,Whole Blood 264 mg/dL (70-110)
[2023-04-30] MEDS: D5-0.45% NACL WITH KCL 20MEQ/L 1,000 ML IV SCH ×2 (08:05→14:57)
[2023-04-30 09:09] LABS: Glucose,Whole Blood 258 mg/dL (70-110)
--- NOTE | 2023-04-30 10:25 | P.PN ---
Subjective Progress Note Date: 04/30/23 This is a 27-year-old white male with past medical history significant for type 1 diabetes mellitus and medication noncompliance. Patient has had numerous hospital admissions for diabetic ketoacidosis, most recent hospital admission back on 03/19/2023 for the same. Patient was brought in earlier this morning by EMS, he was confused and tachypneic. Patient's blood sugars were elevated at home. Patient states that he was taking his insulin. He was having nausea and vomiting. Denies any abdominal pain, diarrhea, constipation, hematemesis. Denies any infectious symptoms. He was found to be in DKA. Serum bicarb was less than 5, anion gap unmeasurable, glucose 929, and he was acetone positive. Patient has been started on the DKA protocol. Insulin is currently infusing at 5.6 units per hour. He was also severely hyperkalemic on arrival, with a potassium of 7. Hyperacute T waves seen on EKG. He was given 2 amps of sodium bicarb. CBC on arrival showed some leukocytosis with a WBC count of 38.9, hemoglobin 13.5, hematocrit 48.3, platelets 185. He received 2.5 L normal saline bolus in the emergency room. Normal saline is currently infusing at 200 ml per hour. Most recent BMP shows sodium 144, potassium down to 5.6, chloride 103, serum bicarb still less than 5, anion gap unmeasurable, creatinine down to 1.63, most recent glucose 541. Urinalysis not concerning for UTI. Positive for k etones. Patient is currently lying in bed, in no acute distress, able answer most of my questions. He is on room air. SpO2 is 99%. Blood pressure is normotensive after fluid resuscitation. He will be admitted to the intensive care unit once bed available. On today's evaluation of 04/30/2023, the patient is awake and alert. No new complaints. I noted that he has developed some tachycardia which is probably sinus and 12-lead EKGs to follow. He is on insulin drip at 3.3 units an hour. His IV fluids are in the form of D5 half-normal saline at the rate of 150 mL an hour. The white cell count is at 19.9. Hemoglobin is at 10.1. Platelet count is at 346. Sodium level is at 134, potassium levels at 4.2, serum bicarb is 20 with a gap of 13 with a BUN of 14 and a creatinine of 0.6. Most recent blood sugar was 258. Earlier this morning, the patient breakfast including pancakes. LFTs are within normal limits. Is afebrile. He is hemodynamically stable. No hypotension. Is on room air oxygen. No nausea. No emesis. Objective - Vital Signs Vital signs: Vital Signs Temp 98.9 F 04/30/23 08:00 Pulse 140 H 04/30/23 09:00 Resp 21 04/30/23 09:00 BP 102/67 04/30/23 09:00 Pulse Ox 97 04/30/23 09:00 FiO2 Intake & Output 04/29/23 04/30/23 04/30/23 18:59 06:59 18:59 Intake Total 3225 2178.499 463.203 Output Total 1500 2050 1400 Balance 1725 128.499 -936.797 Weight 56.699 kg 76.4 kg Intake: IV 300 D5-0.45% NaCl with KCl 300 20Meq/l 1,000 ml @ 150 mls/hr IV .Q6H40M YAEL Rx# :[id number] Intake, IV Titration 1725 1748.499 163.203 Amount D5-0.45% NaCl with KCl 1125 1650 150 20Meq/l 1,000 ml @ 150 mls/hr IV .Q6H40M YAEL Rx# :[id number] Insulin Regular 100 unit 98.499 13.203 In Sodium Chloride 0.9% 100 ml @ 0.1 UNITS/KG/HR 5.727 mls/hr IV .[id number] YAEL Rx#:[id number] Sodium Chloride 0.9% 1, 600 000 ml @ 200 mls/hr IV . Q5H YAEL Rx#:[id number] Oral 1500 430 Output: Urine 1500 2050 1400 Other: Voiding Method Urinal Urinal Urinal # Voids 1 - Exam GENERAL EXAM: Alert, disheveled 27-year-old white male, comfortable in no apparent distress. HEAD: Normocephalic and atraumatic EYES: Normal reaction of pupils, equal size. NOSE: Clear with pink turbinates. THROAT: No erythema or exudates. Poor dentition NECK: No masses, no JVD. CHEST: No chest wall deformity. LUNGS: Equal air entry with no crackles, wheeze, rhonchi or dullness. On room air. No conversational dyspnea or accessory muscle use.. CVS: S1 and S2 normal with no audible murmur, regular rhythm. No extra heart sounds ABDOMEN: No hepatosplenomegaly, active bowel sounds, no guarding or rigidity. SPINE: No scoliosis or deformity SKIN: No rashes CENTRAL NERVOUS SYSTEM: No focal deficits, tone is normal in all 4 extremities. EXTREMITIES: There is no peripheral edema, clubbing, or cyanosis. Peripheral pulses are intact. - Labs CBC & Chem 7: 04/30/23 04:38 04/30/23 04:38 Labs: Abnormal Lab Results - Last 24 Hours (Table) 04/29/23 04/29/23 04/29/23 Range/Units 11:01 11:58 13:02 WBC (3.8-10.6) k/uL RBC (4.30-5.90) m/uL Hgb (13.0-17.5) gm/dL Hct (39.0-53.0) % RDW (11.5-15.5) % Neutrophils # (1.3-7.7) k/uL Monocytes # (0-1.0) k/uL Sodium (137-145) mmol/L Potassium (3.5-5.1) mmol/L Carbon Dioxide (22-30) mmol/L Creatinine (0.66-1.25) mg/dL Glucose (74-99) mg/dL POC Glucose (mg/dL) 239 H 202 H 240 H (70-110) mg/dL Calcium (8.4-10.2) mg/dL Phosphorus (2.5-4.5) mg/dL Total Protein (6.3-8.2) g/dL Albumin (3.5-5.0) g/dL 04/29/23 04/29/23 04/29/23 Range/Units 14:25 15:05 16:13 WBC (3.8-10.6) k/uL RBC (4.30-5.90) m/uL Hgb (13.0-17.5) gm/dL Hct (39.0-53.0) % RDW (11.5-15.5) % Neutrophils # (1.3-7.7) k/uL Monocytes # (0-1.0) k/uL Sodium (137-145) mmol/L Potassium (3.5-5.1) mmol/L Carbon Dioxide (22-30) mmol/L Creatinine (0.66-1.25) mg/dL Glucose (74-99) mg/dL POC Glucose (mg/dL) 213 H 225 H 156 H (70-110) mg/dL Calcium (8.4-10.2) mg/dL Phosphorus (2.5-4.5) mg/dL Total Protein (6.3-8.2) g/dL Albumin (3.5-5.0) g/dL 04/29/23 04/29/23 04/29/23 Range/Units 17:13 18:10 19:57 WBC (3.8-10.6) k/uL RBC (4.30-5.90) m/uL Hgb (13.0-17.5) gm/dL Hct (39.0-53.0) % RDW (11.5-15.5) % Neutrophils # (1.3-7.7) k/uL Monocytes # (0-1.0) k/uL Sodium (137-145) mmol/L Potassium (3.5-5.1) mmol/L Carbon Dioxide (22-30) mmol/L Creatinine (0.66-1.25) mg/dL Glucose (74-99) mg/dL POC Glucose (mg/dL) 155 H 153 H 138 H (70-110) mg/dL Calcium (8.4-10.2) mg/dL Phosphorus (2.5-4.5) mg/dL Total Protein (6.3-8.2) g/dL Albumin (3.5-5.0) g/dL 04/29/23 04/29/23 04/29/23 Range/Units 21:01 21:28 21:28 WBC 25.9 H (3.8-10.6) k/uL RBC 3.69 L (4.30-5.90) m/uL Hgb 10.4 L D (13.0-17.5) gm/dL Hct 31.7 L (39.0-53.0) % RDW 15.8 H (11.5-15.5) % Neutrophils # 21.9 H (1.3-7.7) k/uL Monocytes # 1.4 H (0-1.0) k/uL Sodium 136 L (137-145) mmol/L Potassium 3.4 L (3.5-5.1) mmol/L Carbon Dioxide (22-30) mmol/L Creatinine 0.64 L (0.66-1.25) mg/dL Glucose (74-99) mg/dL POC Glucose (mg/dL) 115 H (70-110) mg/dL Calcium 7.8 L (8.4-10.2) mg/dL Phosphorus (2.5-4.5) mg/dL Total Protein (6.3-8.2) g/dL Albumin (3.5-5.0) g/dL 04/29/23 04/29/23 04/30/23 Range/Units 22:02 23:03 00:10 WBC (3.8-10.6) k/uL RBC (4.30-5.90) m/uL Hgb (13.0-17.5) gm/dL Hct (39.0-53.0) % RDW (11.5-15.5) % Neutrophils # (1.3-7.7) k/uL Monocytes # (0-1.0) k/uL Sodium (137-145) mmol/L Potassium (3.5-5.1) mmol/L Carbon Dioxide (22-30) mmol/L Creatinine (0.66-1.25) mg/dL Glucose (74-99) mg/dL POC Glucose (mg/dL) 138 H 135 H 185 H (70-110) mg/dL Calcium (8.4-10.2) mg/dL Phosphorus (2.5-4.5) mg/dL Total Protein (6.3-8.2) g/dL Albumin (3.5-5.0) g/dL 04/30/23 04/30/23 04/30/23 Range/Units 01:20 02:05 03:03 WBC (3.8-10.6) k/uL RBC (4.30-5.90) m/uL Hgb (13.0-17.5) gm/dL Hct (39.0-53.0) % RDW (11.5-15.5) % Neutrophils # (1.3-7.7) k/uL Monocytes # (0-1.0) k/uL Sodium (137-145) mmol/L Potassium (3.5-5.1) mmol/L Carbon Dioxide (22-30) mmol/L Creatinine (0.66-1.25) mg/dL Glucose (74-99) mg/dL POC Glucose (mg/dL) 232 H 243 H 301 H (70-110) mg/dL Calcium (8.4-10.2) mg/dL Phosphorus (2.5-4.5) mg/dL Total Protein (6.3-8.2) g/dL Albumin (3.5-5.0) g/dL 04/30/23 04/30/23 04/30/23 Range/Units 04:02 04:38 04:38 WBC 19.9 H (3.8-10.6) k/uL RBC 3.59 L (4.30-5.90) m/uL Hgb 10.1 L (13.0-17.5) gm/dL Hct 31.1 L (39.0-53.0) % RDW 15.6 H (11.5-15.5) % Neutrophils # 16.5 H (1.3-7.7) k/uL Monocytes # 1.1 H (0-1.0) k/uL Sodium 134 L (137-145) mmol/L Potassium (3.5-5.1) mmol/L Carbon Dioxide 20 L (22-30) mmol/L Creatinine 0.63 L (0.66-1.25) mg/dL Glucose 258 H (74-99) mg/dL POC Glucose (mg/dL) 285 H (70-110) mg/dL Calcium 7.7 L (8.4-10.2) mg/dL Phosphorus 1.8 L (2.5-4.5) mg/dL Total Protein 5.5 L (6.3-8.2) g/dL Albumin 3.2 L (3.5-5.0) g/dL 04/30/23 04/30/23 04/30/23 Range/Units 05:03 06:56 07:55 WBC (3.8-10.6) k/uL RBC (4.30-5.90) m/uL Hgb (13.0-17.5) gm/dL Hct (39.0-53.0) % RDW (11.5-15.5) % Neutrophils # (1.3-7.7) k/uL Monocytes # (0-1.0) k/uL Sodium (137-145) mmol/L Potassium (3.5-5.1) mmol/L Carbon Dioxide (22-30) mmol/L Creatinine (0.66-1.25) mg/dL Glucose (74-99) mg/dL POC Glucose (mg/dL) 244 H 236 H 264 H (70-110) mg/dL Calcium (8.4-10.2) mg/dL Phosphorus (2.5-4.5) mg/dL Total Protein (6.3-8.2) g/dL Albumin (3.5-5.0) g/dL 04/30/23 Range/Units 09:08 WBC (3.8-10.6) k/uL RBC (4.30-5.90) m/uL Hgb (13.0-17.5) gm/dL Hct (39.0-53.0) % RDW (11.5-15.5) % Neutrophils # (1.3-7.7) k/uL Monocytes # (0-1.0) k/uL Sodium (137-145) mmol/L Potassium (3.5-5.1) mmol/L Carbon Dioxide (22-30) mmol/L Creatinine (0.66-1.25) mg/dL Glucose (74-99) mg/dL POC Glucose (mg/dL) 258 H (70-110) mg/dL Calcium (8.4-10.2) mg/dL Phosphorus (2.5-4.5) mg/dL Total Protein (6.3-8.2) g/dL Albumin (3.5-5.0) g/dL Assessment and Plan Assessment: Acute diabetic ketoacidosis, likely secondary to medication noncompliance. Patient has had numerous episodes of DKA, recently admitted on 03/19/23 for the same, currently improved and the patient's anion gap was closed. The patient had breakfast this morning. The patient is going to be switched to long-acting insulin Severe anion gap metabolic acidosis, secondary to above and lactic acidosis, improved Tachycardia, likely sinus, awaiting a 12-lead EKG Severe dehydration, improved Acute kidney injury, prerenal, secondary to above, improved Severe hyperkalemia, improving Hyperphosphatemia Type 1 diabetes mellitus, with poor medication compliance. Acute leukocytosis, likely reactive to DKA, improved Diabetic neuropathy History of major depression Chronic marijuana use Chronic ongoing nicotine dependence Plan: Obtain a 12-lead EKG Stop insulin drip Stop D5 half-normal infusion Start patient on Levemir insulin 20 units and NovoLog 5 units with meals I will hydrate consistent diet Sliding-scale insulin coverage Will likely downgrade
[2023-04-30] MEDS ORDERED: Phosphorus Replacement Protoco 1 EACH MISC MISCELLANE PRN (10:28)
[2023-04-30] MEDS ORDERED: POTAS-SOD-PHOS 278-164-250 MG 1 EACH PACKET PO ONE (10:28)
[2023-04-30] MEDS ORDERED: ADENOSINE 3 MG/ML 2 ML VIAL IVP STA ×2 (10:33)
[2023-04-30 11:50] LABS: Glucose,Whole Blood 212 mg/dL (70-110)
[2023-04-30] MEDS: INSULIN ASPART (NovoLOG) 100 UNIT/ML VIAL SQ SCH ×5 (11:51→20:56)
[2023-04-30 12:07] LABS: Basophils % (A) 0 %; Eosinophils # (A) 0.2 k/uL (0-0.7); Eosinophils % (A) 1 %; HCT 34.3 % (39.0-53.0); HGB 11.1 gm/dL (13.0-17.5); Lymphocytes # (A) 2.5 k/uL (1.0-4.8); Lymphocytes % (A) 13 %; MCH 27.8 pg (25.0-35.0); MCHC 32.5 g/dL (31.0-37.0); MCV 85.6 fL (80.0-100.0); Monocytes # (A) 0.9 k/uL (0-1.0); Monocytes % (A) 5 %; Neutrophils # (A) 15.2 k/uL (1.3-7.7); Neutrophils % (A) 80 %; Platelet Count 328 k/uL (150-450); RDW 15.7 % (11.5-15.5); WBC 18.9 k/uL (3.8-10.6)
[2023-04-30 12:21] LABS: ALT 20 U/L (4-49); AST 22 U/L (17-59); African American GFR (CKD) >90 (>60 ml/min/1.73 sqM); Albumin 3.5 g/dL (3.5-5.0); Alkaline Phosphatase 86 U/L (38-126); Anion Gap 9 mmol/L; Blood Urea Nitrogen 8 mg/dL (9-20); Calcium 8.2 mg/dL (8.4-10.2); Carbon Dioxide 24 mmol/L (22-30); Chloride 101 mmol/L (98-107); Glucose 225 mg/dL (74-99); Non-African American GFR(CKD) >90 (>60 ml/min/1.73 sqM); Potassium 4.4 mmol/L (3.5-5.1); Sodium 134 mmol/L (137-145); Total Bilirubin 0.3 mg/dL (0.2-1.3); Total Protein 5.9 g/dL (6.3-8.2)
[2023-04-30 13:04] VITALS: BMI 21.0
[2023-04-30 16:50] LABS: Glucose,Whole Blood 404 mg/dL (70-110)
[2023-04-30] MEDS: ONDANSETRON 4 MG/2 ML VIAL IVP PRN (17:38)
[2023-04-30] MEDS ORDERED: INSULIN DETEMIR (LEVEMIR) 100 UNIT/ML SYR SQ SCH (21:00)
[2023-05-01] MEDS: INSULIN ASPART (NovoLOG) 100 UNIT/ML VIAL SQ SCH ×3 (01:49→06:12)
[2023-05-01 08:37] VITALS: BP 118/78; PULSE 81; RESP 16; TEMP 98.9
[2023-05-01 08:43] LABS: Basophils % (A) 0 %; Eosinophils # (A) 0.1 k/uL (0-0.7); Eosinophils % (A) 1 %; HCT 34.4 % (39.0-53.0); HGB 11.2 gm/dL (13.0-17.5); Lymphocytes # (A) 2.3 k/uL (1.0-4.8); Lymphocytes % (A) 25 %; MCHC 32.6 g/dL (31.0-37.0); MCV 85.8 fL (80.0-100.0); Monocytes # (A) 0.5 k/uL (0-1.0); Monocytes % (A) 6 %; Neutrophils # (A) 6.1 k/uL (1.3-7.7); Neutrophils % (A) 67 %; Platelet Count 312 k/uL (150-450); RBC 4.01 m/uL (4.30-5.90); RDW 15.4 % (11.5-15.5); WBC 9.2 k/uL (3.8-10.6)
[2023-05-01 08:53] LABS: African American GFR (CKD) >90 (>60 ml/min/1.73 sqM); Anion Gap 5 mmol/L; Blood Urea Nitrogen 7 mg/dL (9-20); Calcium 8.6 mg/dL (8.4-10.2); Carbon Dioxide 33 mmol/L (22-30); Chloride 99 mmol/L (98-107); Glucose 103 mg/dL (74-99); Magnesium 2.2 mg/dL (1.6-2.3); Non-African American GFR(CKD) >90 (>60 ml/min/1.73 sqM); Phosphorus 3.5 mg/dL (2.5-4.5); Potassium 3.8 mmol/L (3.5-5.1); Sodium 137 mmol/L (137-145)
--- NOTE | 2023-05-01 09:14 | CDI ---
Documentation Clarification Form Date: 05/01/2023 08:34:01 AM From: Luanne Bacon RN CCDS Phone: [phone] Admit Date: 04/29/2023 03:38:00 AM Patient Name: Raul Marquez Visit Number: [id number] Discharge Date: ATTENTION: The Clinical Documentation Specialists (CDI) and [facility] Coding Staff appreciate your assistance in clarifying documentation. Please respond to the clarification below the line at the bottom and electronically sign. The CDI & [facility] Coding staff will review the response and follow-up if needed. Please note: Queries are made part of the Legal Health Record. If you have any questions, please contact the author of this message via ITS. Dr. Daren Shankar MD Your patient has Leukocytosis, Acute kidney injury and elevated heart rate, documented. Based on this information and the findings below, is there an additional diagnosis that is clinically appropriate for this patient? History/Risk Factors: 27-year-old male noncompliant DM type 1 with frequent admissions for DKA. Clinical Indicators: VSS, 04/29: B/P 108/62; HR 124; Temp 97.4; RR 22; SpO2 100% room air LABS, 04/29: Wbc 38.9; Blood glucose 929; Acetone positive; Venous blood gas: pH 6.93, pCO2 18, HCO3 4. Treatment: 0.9NS 2.5L IV x 1; Humulin R 10u IV x 1; Sodium Bicarbonate 8.5% 50ml IV x 1; Sodium Bicarbonate IV x 1; Insulin Human Regular 100unit 101mls @ 5.727mls/hr IV [id number]; D5% 1/2NS-KCL 20Meq/L IV 150cc/hr; Novolog SQ AC TID; Novolog 0 unit SQ ACHS 2am YAEL; Levemir 20units SQ HS YAEL Is there an additional diagnosis that is clinically appropriate for this patient? [ x] SIRS, due to DKA without acute organ dysfunction [ ] SIRS, due to DKA with acute kidney injury and confusion [ ] Other, please specify [ ] Unable to determine SIRS Criteria: 2 or more of the following may indicate SIRS -Temperature < 96.8F(36C) or > 101.0F (38.3C) -Heart Rate > 90 bpm -Respiratory Rate > 20 breaths/min or PaCO2 < 32 mmHg -White Blood Cell Count > 12,000 or < 4,000 cells/mm3 or > 10% bands (Template Last Revised: July 2020) MTDD
--- NOTE | 2023-05-01 10:30 | P.PN ---
Subjective Progress Note Date: 05/01/23 This is a 27-year-old white male with past medical history significant for type 1 diabetes mellitus and medication noncompliance. Patient has had numerous hospital admissions for diabetic ketoacidosis, most recent hospital admission back on 03/19/2023 for the same. Patient was brought in earlier this morning by EMS, he was confused and tachypneic. Patient's blood sugars were elevated at home. Patient states that he was taking his insulin. He was having nausea and vomiting. Denies any abdominal pain, diarrhea, constipation, hematemesis. Denies any infectious symptoms. He was found to be in DKA. Serum bicarb was less than 5, anion gap unmeasurable, glucose 929, and he was acetone positive. Patient has been started on the DKA protocol. Insulin is currently infusing at 5.6 units per hour. He was also severely hyperkalemic on arrival, with a potassium of 7. Hyperacute T waves seen on EKG. He was given 2 amps of sodium bicarb. CBC on arrival showed some leukocytosis with a WBC count of 38.9, hemoglobin 13.5, hematocrit 48.3, platelets 185. He received 2.5 L normal saline bolus in the emergency room. Normal saline is currently infusing at 200 ml per hour. Most recent BMP shows sodium 144, potassium down to 5.6, chloride 103, serum bicarb still less than 5, anion gap unmeasurable, creatinine down to 1.63, most recent glucose 541. Urinalysis not concerning for UTI. Positive for k etones. Patient is currently lying in bed, in no acute distress, able answer most of my questions. He is on room air. SpO2 is 99%. Blood pressure is normotensive after fluid resuscitation. He will be admitted to the intensive care unit once bed available. On today's evaluation of 04/30/2023, the patient is awake and alert. No new complaints. I noted that he has developed some tachycardia which is probably sinus and 12-lead EKGs to follow. He is on insulin drip at 3.3 units an hour. His IV fluids are in the form of D5 half-normal saline at the rate of 150 mL an hour. The white cell count is at 19.9. Hemoglobin is at 10.1. Platelet count is at 346. Sodium level is at 134, potassium levels at 4.2, serum bicarb is 20 with a gap of 13 with a BUN of 14 and a creatinine of 0.6. Most recent blood sugar was 258. Earlier this morning, the patient breakfast including pancakes. LFTs are within normal limits. Is afebrile. He is hemodynamically stable. No hypotension. Is on room air oxygen. No nausea. No emesis. 05/01/2023, the patient is fully alert and awake. He had a morning breakfast. He received Levemir last night. He made a commitment to continue using his insulin at home. His Blood work is essentially within normal limits. No anion gap. Blood sugars are adequately controlled this morning at 103. White cell count has dropped down to 9.2. He did have a episode of SVT yesterday. He was converted with adenosine and he has not had any cardiac issues since then. His current cardiac rhythm is sinus. Objective - Vital Signs Vital signs: Vital Signs Temp 98.9 F 05/01/23 08:00 Pulse 81 05/01/23 08:00 Resp 16 05/01/23 08:00 BP 118/78 05/01/23 08:00 Pulse Ox 98 05/01/23 08:00 FiO2 Intake & Output 04/30/23 05/01/23 05/01/23 18:59 06:59 18:59 Intake Total 798.950 6648 Output Total 1900 1250 Balance -1236.797 -250 Weight 76.4 kg 74.8 kg Intake: IV 500 D5-0.45% NaCl with KCl 500 20Meq/l 1,000 ml @ 150 mls/hr IV .[id number] [facility] Rx# :[id number] Intake, IV Titration 163.203 Amount D5-0.45% NaCl with KCl 150 20Meq/l 1,000 ml @ 150 mls/hr IV .[id number] [facility] Rx# :[id number] Insulin Regular 100 unit 13.203 In Sodium Chloride 0.9% 100 ml @ 0.1 UNITS/KG/HR 5.727 mls/hr IV .[id number] [facility] Rx#:[id number] Oral 1000 Output: Urine 1900 1250 Other: Voiding Method Urinal Urinal Urinal # Voids 1 - Exam GENERAL EXAM: Alert, disheveled 27-year-old white male, comfortable in no apparent distress. HEAD: Normocephalic and atraumatic EYES: Normal reaction of pupils, equal size. NOSE: Clear with pink turbinates. THROAT: No erythema or exudates. Poor dentition NECK: No masses, no JVD. CHEST: No chest wall deformity. LUNGS: Equal air entry with no crackles, wheeze, rhonchi or dullness. On room air. No conversational dyspnea or accessory muscle use.. CVS: S1 and S2 normal with no audible murmur, regular rhythm. No extra heart sounds ABDOMEN: No hepatosplenomegaly, active bowel sounds, no guarding or rigidity. SPINE: No scoliosis or deformity SKIN: No rashes CENTRAL NERVOUS SYSTEM: No focal deficits, tone is normal in all 4 extremities. EXTREMITIES: There is no peripheral edema, clubbing, or cyanosis. Peripheral pulses are intact. - Labs CBC & Chem 7: 05/01/23 08:18 05/01/23 08:20 Labs: Abnormal Lab Results - Last 24 Hours (Table) 04/30/23 04/30/23 04/30/23 Range/Units 11:49 11:50 11:50 WBC 18.9 H (3.8-10.6) k/uL RBC 4.00 L (4.30-5.90) m/uL Hgb 11.1 L (13.0-17.5) gm/dL Hct 34.3 L (39.0-53.0) % RDW 15.7 H (11.5-15.5) % Neutrophils # 15.2 H (1.3-7.7) k/uL Sodium 134 L (137-145) mmol/L Carbon Dioxide (22-30) mmol/L BUN 8 L (9-20) mg/dL Creatinine 0.58 L (0.66-1.25) mg/dL Glucose 225 H (74-99) mg/dL POC Glucose (mg/dL) 212 H (70-110) mg/dL Calcium 8.2 L (8.4-10.2) mg/dL Total Protein 5.9 L (6.3-8.2) g/dL 04/30/23 05/01/23 05/01/23 Range/Units 16:47 08:18 08:20 WBC (3.8-10.6) k/uL RBC 4.01 L (4.30-5.90) m/uL Hgb 11.2 L (13.0-17.5) gm/dL Hct 34.4 L (39.0-53.0) % RDW (11.5-15.5) % Neutrophils # (1.3-7.7) k/uL Sodium (137-145) mmol/L Carbon Dioxide 33 H (22-30) mmol/L BUN 7 L (9-20) mg/dL Creatinine (0.66-1.25) mg/dL Glucose 103 H (74-99) mg/dL POC Glucose (mg/dL) 404 H (70-110) mg/dL Calcium (8.4-10.2) mg/dL Total Protein (6.3-8.2) g/dL Assessment and Plan Assessment: Acute diabetic ketoacidosis, likely secondary to medication noncompliance. Patient has had numerous episodes of DKA, recently admitted on 03/19/23 for the same, currently improved and the patient's anion gap was closed. The patient had breakfast this morning. The patient is on long-acting insulin. Anion gap is closed. Severe anion gap metabolic acidosis, secondary to above and lactic acidosis, improved SVT, post chemical cardioversion with adenosine, recovered and the patient is back to normal sinus rhythm Severe dehydration, improved Acute kidney injury, prerenal, secondary to above, improved Severe hyperkalemia, improving Hyperphosphatemia Type 1 diabetes mellitus, with poor medication compliance. Acute leukocytosis, likely reactive to DKA, improved Diabetic neuropathy History of major depression Chronic marijuana use Chronic ongoing nicotine dependence Plan: home today Levemir insulin 25 units and NovoLog 5-10 units with meals Sliding-scale insulin coverage Home today
--- NOTE | 2023-05-01 11:05 | DS ---
DISCHARGE SUMMARY CHIEF COMPLAINT: DKA. HISTORY OF PRESENT ILLNESS AND PHYSICAL EXAMINATION: Details of this young man's history and physical can be found in the initial workup. LABORATORY STUDIES: While he was in the hospital, he had laboratory studies, details of which can be found in the laboratory section of his chart. COURSE IN THE HOSPITAL: After admission, he was placed on bedrest and started on ICU management and DKA protocol. Initially, he was very lethargic and nauseated. However, by the morning of the , he was awake and alert and no longer nauseated. Blood sugars were down, and he was anxious to be discharged. FINAL DIAGNOSES: 1. Diabetic ketoacidosis. 2. Uncontrolled type 1 insulin-dependent diabetes mellitus due to noncompliance. 3. Peripheral diabetic neuropathy. 4. Depression. OPERATIONS: None. CONSULTATIONS: Intensive Medicine. CONDITION: He is improved. GRACE / ALDEN: [id number] /
--- NOTE | 2023-05-02 05:11 | HP ---
HISTORY AND PHYSICAL CHIEF COMPLAINT: DKA. HISTORY OF PRESENT ILLNESS: This is another admission for this 27-year-old type 1 diabetic who is in and out of the hospitals almost every week. He was just seen in the office and was doing well. 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 Whenever he is working, he does well. Apparently had not been working and came back in diabetic ketoacidosis. REVIEW OF SYSTEMS: He denies any focal problems, change in the vision, chest pain, shortness of breath, etc. He is nauseated and vomiting. The remainder of his history is unremarkable. PHYSICAL EXAMINATION: VITAL SIGNS: Normal except for pulse of 116. GENERAL: He is dehydrated. CHEST: Clear. CARDIAC: Normal. ABDOMEN: Soft and flat. EXTREMITIES: Normal. IMPRESSION: 1. DKA. 2. Depression. 3. Diabetic peripheral neuropathy. PLAN: 1. Bed rest. 2. DKA protocol. MMODL / IJN: [id number] /
--- NOTE | 2023-05-03 08:52 | PN ---
PROGRESS NOTE DATE OF SERVICE: 04/30/2023 CHIEF COMPLAINT: DKA. HISTORY OF PRESENT ILLNESS: This gentleman continues to improve. Nausea is stopped. He is starting to eat and sugars are under better control. PHYSICAL EXAMINATION: GENERAL: He is still dehydrated. CHEST: Clear. CARDIAC: Normal. ABDOMEN: Soft, nontender. IMPRESSION: 1. DKA. 2. Depression. PLAN: Increase activity, diet, and possibly discharge tomorrow. MMODL / IJN: [id number] /
== END 2023-05-01 11:17 | disposition home or self-care (01) | DRG 420 ==
LOC: EC 02:28 → 2SICU 03:38
PROVIDERS: ADMIT Family Medicine; ATTEND Family Medicine
DX: E10.10 Type 1 diabetes mellitus with ketoacidosis without coma (principal); Z79.4 Long term (current) use of insulin; F32.9 Major depressive disorder, single episode, unspecified; Z91.148 Patient's other noncompliance with medication regimen for other reason; E83.39 Other disorders of phosphorus metabolism; R65.10 Systemic inflammatory response syndrome (SIRS) of non-infectious origin without acute organ dysfunction; E10.42 Type 1 diabetes mellitus with diabetic polyneuropathy; E87.5 Hyperkalemia; N17.9 Acute kidney failure, unspecified; E86.0 Dehydration; J45.909 Unspecified asthma, uncomplicated; L30.9 Dermatitis, unspecified; I47.10 Supraventricular tachycardia, unspecified; F17.210 Nicotine dependence, cigarettes, uncomplicated; D72.829 Elevated white blood cell count, unspecified; Z91.199 Patient's noncompliance with other medical treatment and regimen due to unspecified reason; Z79.899 Other long term (current) drug therapy; Z82.49 Family history of ischemic heart disease and other diseases of the circulatory system
CPT/HCPCS: 36415; 71045; 80048; 80051; 80053; 80320; 81003; 82009; 82565; 82803; 82947; 83605; 83735; 84100; 84484; 84520; 85025; 85610; 85730; 93005; 96361; 96374; 96375; 96376; 99291

== ENCOUNTER 2023-05-13 13:50 | Inpatient (IN) | payer OTHER ==
[2023-05-13 13:55] LABS: Glucose,Whole Blood >600 mg/dL (70-110)
[2023-05-13] MEDS ORDERED: SODIUM CHLORIDE 0.9% 500 ML 500 ML IV STA (13:57)
[2023-05-13] MEDS ORDERED: SODIUM CHLORIDE 0.9% 1,000 ML IV STA ×2 (13:57)
--- NOTE | 2023-05-13 14:07 | ED ---
Recheck HPI - General Stated Complaint: hyperglycemic Time Seen by Provider: 05/13/23 13:57 Source: EMS, RN notes reviewed, old records reviewed Mode of arrival: EMS Limitations: no limitations - History of Present Illness Initial Comments: This is a 27-year-old male to the emergency department for evaluation of weakness significant difficulty breathing altered mental status and confusion unable to provide history, patient is well-known to our facility MD Complaint: abnormal lab -: days(s) Returns Today for: needs IV antibiotics Symptoms Since Prior Visit: no new symptoms Context: planned re-check Associated Symptoms: none Treatments Prior to Arrival: Given Antibiotics on, Given Pain Meds on - Related Data Home Medications Medication Instructions Recorded Confirmed Insulin Detemir (Levemir) [Levemir] 30 unit SQ HS 03/07/23 05/13/23 Ergocalciferol [Vitamin D2 (1250 1,250 mcg PO Q30D 04/29/23 05/13/23 Mcg = [id number] Iu)] Famotidine [Pepcid] 20 mg PO BID 04/29/23 05/13/23 Gabapentin 600 mg PO TID 04/29/23 05/13/23 Insulin Lispro [Insulin Lispro 7 units SQ AC-TID 04/29/23 05/13/23 Kwikpen U-100] Losartan Potassium 50 mg PO DAILY 04/29/23 05/13/23 Mirtazapine 7.5 mg PO HS 04/29/23 05/13/23 Allergies Allergy/AdvReac Type Severity Reaction Status Date / Time No Known Allergies Allergy Verified 05/13/23 16:11 Review of Systems ROS Statement: Those systems with pertinent positive or pertinent negative responses have been documented in the HPI. ROS Other: All systems not noted in ROS Statement are negative. Past Medical History Past Medical History: Asthma, Diabetes Mellitus, Neurologic Disorder, Skin Disorder Additional Past Medical History / Comment(s): IDDM type I, neuropathy bilateral feet, DKA, eczema. History of Any Multi-Drug Resistant Organisms: None Reported Past Surgical History: Adenoidectomy Additional Past Surgical History / Comment(s): 2003 Recent EGD- gastritis Past Anesthesia/Blood Transfusion Reactions: No Reported Reaction Past Psychological History: Anxiety, Depression Smoking Status: Former smoker Past Alcohol Use History: None Reported Past Drug Use History: Marijuana - Past Family History Mother Family Medical History: CVA/TIA Additional Family Medical History / Comment(s): TIA Father Family Medical History: Hyperlipidemia, Hypertension Additional Family Medical History / Comment(s): . General Exam Limitations: no limitations General appearance: alert, in no apparent distress, anxious Head exam: Present: atraumatic, normocephalic, normal inspection Eye exam: Present: normal appearance, PERRL, EOMI. Absent: scleral icterus, conjunctival injection, periorbital swelling ENT exam: Present: normal exam, mucous membranes moist Neck exam: Present: normal inspection. Absent: tenderness, meningismus, lymphadenopathy Respiratory exam: Present: normal lung sounds bilaterally. Absent: respiratory distress, wheezes, rales, rhonchi, stridor Cardiovascular Exam: Present: normal rhythm, tachycardia, normal heart sounds. Absent: systolic murmur, diastolic murmur, rubs, gallop, clicks GI/Abdominal exam: Present: soft, normal bowel sounds. Absent: distended, tenderness, guarding, rebound, rigid Extremities exam: Present: normal inspection, full ROM, normal capillary refill. Absent: tenderness, pedal edema, joint swelling, calf tenderness Back exam: Present: normal inspection Neurological exam: Present: alert, oriented X3, CN II-XII intact Psychiatric exam: Present: normal affect, normal mood Skin exam: Present: warm, dry, intact, normal color. Absent: rash Course Vital Signs 05/13/23 05/13/23 05/13/23 13:51 14:00 14:20 Temperature 96.7 F L Pulse Rate 131 H 131 H 133 H Respiratory 16 17 17 Rate Blood Pressure 124/88 124/88 120/84 O2 Sat by Pulse 100 100 98 Oximetry 05/13/23 05/13/23 05/13/23 14:40 15:00 15:20 Temperature Pulse Rate 134 H 129 H 130 H Respiratory 22 18 22 Rate Blood Pressure 124/88 109/60 105/71 O2 Sat by Pulse 98 97 98 Oximetry 05/13/23 05/13/23 15:40 16:00 Temperature Pulse Rate 133 H 133 H Respiratory 13 27 H Rate Blood Pressure 120/71 105/72 O2 Sat by Pulse 98 99 Oximetry - Reevaluation(s) Reevaluation #1: 05/13/23 18:38 Medical records reviewed Reevaluation #2: 05/13/23 18:38 Patient symptoms unchanged Reevaluation #3: 05/13/23 18:38 Patient informed results and questions answered Reevaluation #4: 05/13/23 18:38 Was pt. sent in by a medical professional or institution ([facility]ero, [employer], urgent care, hospital, or custodial...) When possible be specific @ -no Did you speak to anyone other than the patient for history (EMS, parent, family, police, friend...)? What history was obtained from this source @ -no Did you review nursing and triage notes (agree or disagree)? Why? @ -agree Are old charts reviewed (outside hosp., previous admission, EMS record, old EKG, old radiological studies, urgent care reports/EKG's, custodial records)? Report findings @ -yes Differential Diagnosis (chest pain, altered mental status, abdominal pain women, abdominal pain men, vaginal bleeding, weakness, fever, dyspnea, syncope, head ache, dizziness, GI bleed, back pain, seizure, CVA, palpatations, mental health, musculoskeletal)? @ -prior EKG interpreted by me (3pts min.). @ -yes X-rays interpreted by me (1pt min.). @ -yes CT interpreted by me (1pt min.). @ -no U/S interpreted by me (1pt. min.). @ -no What testing was considered but not performed or refused? (CT, X-rays, U/S, labs)? Why? @ -none What meds were considered but not given or refused? Why? @ -none Did you discuss the management of the patient with other professionals (professionals i.e. [facility]ero, [employer], lab, RT, psych nurse, social worker delinquency prevention, law writer, teacher, air control/anti air warfare officer, lining caser)? Give summary @ -no Was smoking cessation discussed for >3mins.? @ -no Was critical care preformed (if so, how long)? @ -no Were there social determinants of health that impacted care today? How? (Homelessness, low income, unemployed, alcoholism, drug addiction, tra nsportation, low edu. Level, literacy, decrease access to med. care, penitentiary, rehab)? @ -none Was there de-escalation of care discussed even if they declined (Discuss DNR or withdrawal of care, Hospice)? DNR status @ -no What co-morbidities impacted this encounter? (DM, HTN, Smoking, COPD, CAD, Cance r, CVA, ARF, Chemo, Hep., AIDS, mental health diagnosis, sleep apnea, morbid obesity)? @ -none Was patient admitted / discharged? Hospital course, mention meds given and route, prescriptions, significant lab abnormalities, going to OR and other pertinent info. @ - Undiagnosed new problem with uncertain prognosis? @ -no Drug Therapy requiring intensive monitoring for toxicity (Heparin, Nitro, I nsulin, Cardizem)? @ -no Were any procedures done? @ -no Diagnosis/symptom? @ - Acute, or Chronic, or Acute on Chronic? @ -Acute Uncomplicated (without systemic symptoms) or Complicated (systemic symptoms)? @ -Complicated Side effects of treatment? @ -no Exacerbation, Progression, or Severe Exacerbation? @ -exacerbation Poses a threat to life or bodily function? How? (Chest pain, USA, IL, pneumonia, PE, COPD, DKA, ARF, appy, cholecystitis, CVA, Diverticulitis, Homicidal, Suicidal, threat to staff... and all critical care pts) @ -yes Reevaluation #5: 05/13/23 18:38 Differential Weakness: Hypoglycemia, shock, sepsis, hyponatremia, anemia, infection, IL, ETOH, adverse medicine reaction, overdose, stroke, this is not meant to be an all-inclusive list. - Consultations Consultation #1: Spoke with Dr. Valenzuela an ICU regarding admission there agreeable Medical Decision Making - Medical Decision Making 27 male to the emergency department with significant acute DKA diabetic ketoacidosis severe. Patient will be admitted for ICU for evaluation and treatment - Lab Data Result diagrams: 05/13/23 14:00 05/13/23 14:00 Lab Results 05/13/23 05/13/23 05/13/23 Range/Units 13:53 14:00 14:00 WBC 27.9 H (3.8-10.6) k/uL RBC 4.75 (4.30-5.90) m/uL Hgb 13.6 (13.0-17.5) gm/dL Hct 45.1 (39.0-53.0) % MCV 95.1 D (80.0-100.0) fL MCH 28.6 (25.0-35.0) pg MCHC 30.0 L (31.0-37.0) g/dL RDW 15.5 (11.5-15.5) % Plt Count 646 H D (150-450) k/uL MPV 7.8 Neutrophils % (Manual) 92 % Lymphocytes % (Manual) 5 % Monocytes % (Manual) 3 % Eosinophils % (Manual) 1 % Metamyelocytes % 1 % Neutrophils # (Manual) 25.67 H (1.3-7.7) k/uL Lymphocytes # (Manual) 1.40 (1.0-4.8) k/uL Monocytes # (Manual) 0.84 (0-1.0) k/uL Eosinophils # (Manual) 0.28 (0-0.7) k/uL Metamyelocytes # (Man) 0.28 H (0) k/uL Nucleated RBCs 0 (0-0) /100 WBC Manual Slide Review Performed Toxic Granulation Present Hypochromasia Marked PT 10.2 (10.0-12.5) sec INR 0.9 (<1.2) APTT 23.2 (22.0-30.0) sec Sodium (137-145) mmol/L Potassium (3.5-5.1) mmol/L Chloride (98-107) mmol/L Carbon Dioxide (22-30) mmol/L Anion Gap mmol/L BUN (9-20) mg/dL Creatinine (0.66-1.25) mg/dL Est GFR (CKD-EPI)AfAm (>60 ml/min/1.73 sqM) Est GFR (CKD-EPI)NonAf (>60 ml/min/1.73 sqM) Glucose (74-99) mg/dL POC Glucose (mg/dL) >600 H (70-110) mg/dL POC Glu Certified Rehabilitation Counselor ID Biland, Janette Lactic Ac Sepsis Rflx Plasma Lactic Acid Len (0.7-2.0) mmol/L Calcium (8.4-10.2) mg/dL Phosphorus (2.5-4.5) mg/dL Magnesium (1.6-2.3) mg/dL Total Bilirubin (0.2-1.3) mg/dL AST (17-59) U/L ALT (4-49) U/L Alkaline Phosphatase (38-126) U/L Troponin I (0.000-0.034) ng/mL NT-Pro-B Natriuret Pep pg/mL Total Protein (6.3-8.2) g/dL Albumin (3.5-5.0) g/dL Urine Color Urine Appearance (Clear) Urine pH (5.0-8.0) Ur Specific [place] (1.001-1.035) Urine Protein (Negative) Urine Glucose (UA) (Negative) Urine Ketones (Negative) Urine Blood (Negative) Urine Nitrite (Negative) Urine Bilirubin (Negative) Urine Urobilinogen (<2.0) mg/dL Ur Leukocyte Esterase (Negative) Acetone, Qual (Negative) 05/13/23 05/13/23 05/13/23 Range/Units 14:00 14:00 14:00 WBC (3.8-10.6) k/uL RBC (4.30-5.90) m/uL Hgb (13.0-17.5) gm/dL Hct (39.0-53.0) % MCV (80.0-100.0) fL MCH (25.0-35.0) pg MCHC (31.0-37.0) g/dL RDW (11.5-15.5) % Plt Count (150-450) k/uL MPV Neutrophils % (Manual) % Lymphocytes % (Manual) % Monocytes % (Manual) % Eosinophils % (Manual) % Metamyelocytes % % Neutrophils # (Manual) (1.3-7.7) k/uL Lymphocytes # (Manual) (1.0-4.8) k/uL Monocytes # (Manual) (0-1.0) k/uL Eosinophils # (Manual) (0-0.7) k/uL Metamyelocytes # (Man) (0) k/uL Nucleated RBCs (0-0) /100 WBC Manual Slide Review Toxic Granulation Hypochromasia PT (10.0-12.5) sec INR (<1.2) APTT (22.0-30.0) sec Sodium 136 L (137-145) mmol/L Potassium 5.7 H (3.5-5.1) mmol/L Chloride 93 L (98-107) mmol/L Carbon Dioxide <5 L* (22-30) mmol/L Anion Gap mmol/L BUN 29 H (9-20) mg/dL Creatinine 1.32 H (0.66-1.25) mg/dL Est GFR (CKD-EPI)AfAm 87 (>60 ml/min/1.73 sqM) Est GFR (CKD-EPI)NonAf 75 (>60 ml/min/1.73 sqM) Glucose 697 H* (74-99) mg/dL POC Glucose (mg/dL) (70-110) mg/dL POC Glu Certified Rehabilitation Counselor ID Lactic Ac Sepsis Rflx Plasma Lactic Acid Len 3.9 H* (0.7-2.0) mmol/L Calcium 9.5 (8.4-10.2) mg/dL Phosphorus 7.3 H (2.5-4.5) mg/dL Magnesium 2.4 H (1.6-2.3) mg/dL Total Bilirubin 0.8 (0.2-1.3) mg/dL AST 23 (17-59) U/L ALT 23 (4-49) U/L Alkaline Phosphatase 138 H (38-126) U/L Troponin I (0.000-0.034) ng/mL NT-Pro-B Natriuret Pep <20 pg/mL Total Protein 8.1 (6.3-8.2) g/dL Albumin 5.2 H (3.5-5.0) g/dL Urine Color Colorless Urine Appearance Clear (Clear) Urine pH 5.0 (5.0-8.0) Ur Specific [place] 1.023 (1.001-1.035) Urine Protein Negative (Negative) Urine Glucose (UA) 4+ H (Negative) Urine Ketones 4+ H (Negative) Urine Blood Negative (Negative) Urine Nitrite Negative (Negative) Urine Bilirubin Negative (Negative) Urine Urobilinogen <2.0 (<2.0) mg/dL Ur Leukocyte Esterase Negative (Negative) Acetone, Qual Positive (Negative) 05/13/23 05/13/23 05/13/23 Range/Units 14:00 14:42 16:24 WBC (3.8-10.6) k/uL RBC (4.30-5.90) m/uL Hgb (13.0-17.5) gm/dL Hct (39.0-53.0) % MCV (80.0-100.0) fL MCH (25.0-35.0) pg MCHC (31.0-37.0) g/dL RDW (11.5-15.5) % Plt Count (150-450) k/uL MPV Neutrophils % (Manual) % Lymphocytes % (Manual) % Monocytes % (Manual) % Eosinophils % (Manual) % Metamyelocytes % % Neutrophils # (Manual) (1.3-7.7) k/uL Lymphocytes # (Manual) (1.0-4.8) k/uL Monocytes # (Manual) (0-1.0) k/uL Eosinophils # (Manual) (0-0.7) k/uL Metamyelocytes # (Man) (0) k/uL Nucleated RBCs (0-0) /100 WBC Manual Slide Review Toxic Granulation Hypochromasia PT (10.0-12.5) sec INR (<1.2) APTT (22.0-30.0) sec Sodium (137-145) mmol/L Potassium (3.5-5.1) mmol/L Chloride (98-107) mmol/L Carbon Dioxide (22-30) mmol/L Anion Gap mmol/L BUN (9-20) mg/dL Creatinine (0.66-1.25) mg/dL Est GFR (CKD-EPI)AfAm (>60 ml/min/1.73 sqM) Est GFR (CKD-EPI)NonAf (>60 ml/min/1.73 sqM) Glucose (74-99) mg/dL POC Glucose (mg/dL) 588 H (70-110) mg/dL POC Glu Certified Rehabilitation Counselor ID Amita Raymond, Melonie Lactic Ac Sepsis Rflx Y Plasma Lactic Acid Len (0.7-2.0) mmol/L Calcium (8.4-10.2) mg/dL Phosphorus (2.5-4.5) mg/dL Magnesium (1.6-2.3) mg/dL Total Bilirubin (0.2-1.3) mg/dL AST (17-59) U/L ALT (4-49) U/L Alkaline Phosphatase (38-126) U/L Troponin I <0.012 (0.000-0.034) ng/mL NT-Pro-B Natriuret Pep pg/mL Total Protein (6.3-8.2) g/dL Albumin (3.5-5.0) g/dL Urine Color Urine Appearance (Clear) Urine pH (5.0-8.0) Ur Specific [place] (1.001-1.035) Urine Protein (Negative) Urine Glucose (UA) (Negative) Urine Ketones (Negative) Urine Blood (Negative) Urine Nitrite (Negative) Urine Bilirubin (Negative) Urine Urobilinogen (<2.0) mg/dL Ur Leukocyte Esterase (Negative) Acetone, Qual (Negative) 05/13/23 Range/Units 17:07 WBC (3.8-10.6) k/uL RBC (4.30-5.90) m/uL Hgb (13.0-17.5) gm/dL Hct (39.0-53.0) % MCV (80.0-100.0) fL MCH (25.0-35.0) pg MCHC (31.0-37.0) g/dL RDW (11.5-15.5) % Plt Count (150-450) k/uL MPV Neutrophils % (Manual) % Lymphocytes % (Manual) % Monocytes % (Manual) % Eosinophils % (Manual) % Metamyelocytes % % Neutrophils # (Manual) (1.3-7.7) k/uL Lymphocytes # (Manual) (1.0-4.8) k/uL Monocytes # (Manual) (0-1.0) k/uL Eosinophils # (Manual) (0-0.7) k/uL Metamyelocytes # (Man) (0) k/uL Nucleated RBCs (0-0) /100 WBC Manual Slide Review Toxic Granulation Hypochromasia PT (10.0-12.5) sec INR (<1.2) APTT (22.0-30.0) sec Sodium (137-145) mmol/L Potassium (3.5-5.1) mmol/L Chloride (98-107) mmol/L Carbon Dioxide (22-30) mmol/L Anion Gap mmol/L BUN (9-20) mg/dL Creatinine (0.66-1.25) mg/dL Est GFR (CKD-EPI)AfAm (>60 ml/min/1.73 sqM) Est GFR (CKD-EPI)NonAf (>60 ml/min/1.73 sqM) Glucose (74-99) mg/dL POC Glucose (mg/dL) (70-110) mg/dL POC Glu Certified Rehabilitation Counselor ID Lactic Ac Sepsis Rflx Plasma Lactic Acid Len 3.0 H* (0.7-2.0) mmol/L Calcium (8.4-10.2) mg/dL Phosphorus (2.5-4.5) mg/dL Magnesium (1.6-2.3) mg/dL Total Bilirubin (0.2-1.3) mg/dL AST (17-59) U/L ALT (4-49) U/L Alkaline Phosphatase (38-126) U/L Troponin I (0.000-0.034) ng/mL NT-Pro-B Natriuret Pep pg/mL Total Protein (6.3-8.2) g/dL Albumin (3.5-5.0) g/dL Urine Color Urine Appearance (Clear) Urine pH (5.0-8.0) Ur Specific [place] (1.001-1.035) Urine Protein (Negative) Urine Glucose (UA) (Negative) Urine Ketones (Negative) Urine Blood (Negative) Urine Nitrite (Negative) Urine Bilirubin (Negative) Urine Urobilinogen (<2.0) mg/dL Ur Leukocyte Esterase (Negative) Acetone, Qual (Negative) - EKG Data -: EKG Interpreted by Me (EKG is sinus tachycardia 134 FL 122 QRS 97 QTC 393) Critical Care Time Critical Care Time: Yes Total Critical Care Time: 65 Disposition Clinical Impression: High anion gap metabolic acidosis, Dehydration, Uncontrolled diabetes mellitus, DKA (diabetic ketoacidoses) Disposition: ADMITTED IP TO THIS [facility] Condition: Serious Is patient prescribed a controlled substance at d/c from ED?: No Time of Disposition: 17:00
[2023-05-13 14:20] LABS: INR 0.9 (<1.2); Partial Thromboplastin Time 23.2 sec (22.0-30.0); Prothrombin Time 10.2 sec (10.0-12.5)
[2023-05-13 14:26] LABS: ALT 23 U/L (4-49); AST 23 U/L (17-59); African American GFR (CKD) 87 (>60 ml/min/1.73 sqM); Albumin 5.2 g/dL (3.5-5.0); Alkaline Phosphatase 138 U/L (38-126); Blood Urea Nitrogen 29 mg/dL (9-20); Calcium 9.5 mg/dL (8.4-10.2); Chloride 93 mmol/L (98-107); Magnesium 2.4 mg/dL (1.6-2.3); Non-African American GFR(CKD) 75 (>60 ml/min/1.73 sqM); Phosphorus 7.3 mg/dL (2.5-4.5); Potassium 5.7 mmol/L (3.5-5.1); Sodium 136 mmol/L (137-145); Total Bilirubin 0.8 mg/dL (0.2-1.3); Total Protein 8.1 g/dL (6.3-8.2)
[2023-05-13 14:29] LABS: HCT 45.1 % (39.0-53.0); HGB 13.6 gm/dL (13.0-17.5); Hypochromasia Marked; MCH 28.6 pg (25.0-35.0); Mean Platelet Volume 7.8; RBC 4.75 m/uL (4.30-5.90); RDW 15.5 % (11.5-15.5); WBC 27.9 k/uL (3.8-10.6)
[2023-05-13 14:31] LABS: MCV 95.1 fL (80.0-100.0)
[2023-05-13 14:32] LABS: Platelet Count 646 k/uL (150-450)
[2023-05-13 14:34] LABS: NT-Pro-B-Type Natriuretic Pept <20 pg/mL
[2023-05-13 14:40] LABS: Carbon Dioxide <5 mmol/L (22-30)
[2023-05-13 14:41] LABS: Glucose 697 mg/dL (74-99)
[2023-05-13] MEDS ORDERED: SODIUM BICARB 8.4% 50 ML SYR (1 MEQ/ML) IV STA ×2 (14:59→15:00)
[2023-05-13 15:04] LABS: Eosinophils # (M) 0.28 k/uL (0-0.7); Metamyelocytes # (M) 0.28 k/uL (0); Metamyelocytes % 1 %; Monocytes # (M) 0.84 k/uL (0-1.0); Neutrophils # (M) 25.67 k/uL (1.3-7.7); Neutrophils % (M) 92 %; Nucleated Red Blood Cells 0 /100 WBC (0-0); Total Cells Counted 200
[2023-05-13 15:05] LABS: Toxic Granulation Present
[2023-05-13 16:26] LABS: Glucose,Whole Blood 588 mg/dL (70-110)
[2023-05-13 17:18] LABS: Appearance,Urine Clear (Clear); Bilirubin,Urine Negative (Negative); Blood,Urine Negative (Negative); Color,Urine Colorless; Glucose,Urine (UA) 4+ (Negative); Leukocyte Esterase,Urine Negative (Negative); Nitrite,Urine Negative (Negative); Protein,Urine Negative (Negative); Specific Gravity,Urine 1.023 (1.001-1.035); Urobilinogen,Urine <2.0 mg/dL (<2.0)
[2023-05-13 17:25] LABS: Ketones,Urine 4+ (Negative)
[2023-05-13] MEDS ORDERED: LORazepam 2 MG/ML INJ IV PRN (17:35)
[2023-05-13] MEDS ORDERED: ONDANSETRON 4 MG/2 ML VIAL IVP STA (17:35)
[2023-05-13] MEDS ORDERED: HYDROmorphone 1 MG/ML 1 ML SYRINGE IVP STA (17:35)
[2023-05-13] MEDS ORDERED: HYDROmorphone 1 MG/ML 1 ML SYRINGE IVP PRN (17:35)
[2023-05-13] MEDS ORDERED: SODIUM CHLORIDE 0.9% 1,000 ML IV ONE (17:36)
[2023-05-13] MEDS: INSULIN REGULAR 100 UNIT in SODIUM CHLORIDE 0.9% 100 ML IV SCH (18:26)
[2023-05-13] MEDS ORDERED: NALOXONE 0.4 MG/ML 1 ML VIAL IV PRN (18:35)
[2023-05-13] MEDS ORDERED: MORPHINE SULFATE 4 MG/ML SYRINGE IV PRN (18:36)
[2023-05-13] MEDS: SODIUM CHLORIDE 0.9% 1,000 ML IV SCH ×2 (19:01→22:40)
[2023-05-13 19:10] LABS: Glucose,Whole Blood 569 mg/dL (70-110)
[2023-05-13 19:35] LABS: Glucose,Whole Blood 477 mg/dL (70-110)
[2023-05-13 20:48] LABS: African American GFR (CKD) 79 (>60 ml/min/1.73 sqM); Blood Urea Nitrogen 32 mg/dL (9-20); Chloride 109 mmol/L (98-107); Glucose 471 mg/dL (74-99); Non-African American GFR(CKD) 68 (>60 ml/min/1.73 sqM); Potassium 5.6 mmol/L (3.5-5.1); Sodium 147 mmol/L (137-145)
[2023-05-13 20:53] LABS: Glucose,Whole Blood 374 mg/dL (70-110)
[2023-05-13] MEDS: PANTOPRAZOLE 40 MG/10 ML VIAL IV SCH (20:55)
[2023-05-13 21:02] LABS: Carbon Dioxide <5 mmol/L (22-30)
[2023-05-13 21:56] LABS: Glucose,Whole Blood 346 mg/dL (70-110)
[2023-05-13] MEDS ORDERED: DEXTROSE 50% SYRINGE 50 ML IVP PRN ×2 (22:35)
[2023-05-13] MEDS ORDERED: Magnesium Replacement Protocol 1 EACH MISC MISCELLANE PRN (22:35)
[2023-05-13] MEDS ORDERED: Potassium Replacement Protocol 1 EACH MISC MISCELLANE PRN (22:35)
[2023-05-13 23:00] LABS: Glucose,Whole Blood 340 mg/dL (70-110)
[2023-05-13 23:16] LABS: African American GFR (CKD) 82 (>60 ml/min/1.73 sqM); Blood Urea Nitrogen 30 mg/dL (9-20); Chloride 114 mmol/L (98-107); Glucose 316 mg/dL (74-99); Non-African American GFR(CKD) 71 (>60 ml/min/1.73 sqM); Potassium 5.6 mmol/L (3.5-5.1); Sodium 146 mmol/L (137-145)
[2023-05-13 23:17] LABS: Carbon Dioxide <5 mmol/L (22-30)
[2023-05-14 00:07] LABS: Glucose,Whole Blood 199 mg/dL (70-110)
[2023-05-14] MEDS: D5-0.45% NACL WITH KCL 20MEQ/L 1,000 ML IV SCH ×4 (00:13→23:06)
[2023-05-14 01:00] LABS: Glucose,Whole Blood 170 mg/dL (70-110)
[2023-05-14 02:05] LABS: Glucose,Whole Blood 222 mg/dL (70-110)
--- NOTE | 2023-05-14 02:07 | P.CNPUL ---
History of Present Illness Consult date: 05/14/23 Requesting physician: Julian Posadas Reason for consult: other (DKA and ICU management) Chief complaint: Elevated blood sugars, nausea and vomiting History of present illness: This is a 27-year-old white male with past medical history significant for type 1 diabetes mellitus and medication noncompliance. Patient has had numerous hospital admissions for diabetic ketoacidosis, most recent hospital admission back on 04/29/2023 for the same. Patient was brought in earlier yesterday after noon by EMS, he was confused and tachypneic. Patient's blood sugars were elevated at home. Patient states that he was taking his insulin. He was having nausea and vomiting. Denies any abdominal pain, diarrhea, constipation, hematemesis. Denies any infectious symptoms. He was found to be in DKA. Serum bicarb was less than 5, anion gap unmeasurable, glucose 588, and he was acetone positive. Patient has been started on the DKA protocol. Insulin is currently infusing at 5.7 units per hour. potassium of 5.7. No ekg changes. CBC on arrival showed a WBC count of 27.9, hemoglobin 13.6, hematocrit 45.1, platelets 646. Most recent BMP shows sodium 146, potassium 5.6, chloride 114, serum bicarb still less than 5, anion gap unmeasurable, BUN 30, creatinine elevated at 1.37, glucose is down to 316. Lactic acid level not elevated. He was given 2 A of sodium bicarbonate emergency room. He was fluid resuscitated with 2.5 L normal saline bolus, and has normal saline infusing at 200 ML's per hour. He is alert and able to answer most of my questions. Lying in bed, on room air, in no acute distress. He remains tachycardic and tachypneic. Blood pressure is stable. He will be monitored in the intensive care unit until his DKA resolves. Review of Systems REVIEW OF SYSTEMS: CONSTITUTIONAL: Denies any recent significant weight loss or weight gain. EYES: Denies change in vision. EARS, NOSE, MOUTH, THROAT: Denies headaches, denies sore throat. CARDIOVASCULAR: Denies chest pain, palpitations or syncopal episodes. RESPIRATORY: Denies shortness of breath, cough, congestion or hemoptysis. GASTROINTESTINAL: Denies change in appetite, abdominal pain,or diarrhea. Admits nausea and vomiting following elevated blood sugars. GENITOURINARY: Denies hematuria, denies infections. MUSKULOSKELETAL: Denies pain, denies swelling. INTEGUMENTARY: Denies rash, denies eczema. NEUROLOGICAL: Denies recent memory loss, no recent seizure activity. PSYCHIATRIC: Denies anxiety, denies depression. HEMATOLOGIC/LYMPHATIC: Denies anemia, denies enlarged lymph node Past Medical History Past Medical History: Asthma, Diabetes Mellitus, Neurologic Disorder, Skin Disorder Additional Past Medical History / Comment(s): IDDM type I, neuropathy bilateral feet, DKA, eczema. History of Any Multi-Drug Resistant Organisms: None Reported Past Surgical History: Adenoidectomy Additional Past Surgical History / Comment(s): 2002 Recent EGD- gastritis Past Anesthesia/Blood Transfusion Reactions: No Reported Reaction Past Psychological History: Anxiety, Depression Additional Psychological History / Comment(s): Pt has had multiple psychiatric admissions for depression/suicide attempts. Smoking Status: Former smoker Past Alcohol Use History: None Reported Additional Past Alcohol Use History / Comment(s): Pt started smoking cigarettes as a teen and quit "long ago." Pt started occasional vaping in 2009. Past Drug Use History: Marijuana Additional Drug Use History / Comment(s): Occasional - Past Family History Mother Family Medical History: CVA/TIA Additional Family Medical History / Comment(s): TIA Father Family Medical History: Hyperlipidemia, Hypertension Additional Family Medical History / Comment(s): . Medications and Allergies Home Medications Medication Instructions Recorded Confirmed Type Insulin Detemir (Levemir) [Levemir] 30 unit SQ HS 03/07/23 05/13/23 History Ergocalciferol [Vitamin D2 (1250 1,250 mcg PO Q30D 04/29/23 05/13/23 History Mcg = 52436 Iu)] Famotidine [Pepcid] 20 mg PO BID 04/29/23 05/13/23 History Gabapentin 600 mg PO TID 04/29/23 05/13/23 History Insulin Lispro [Insulin Lispro 7 units SQ AC-TID 04/29/23 05/13/23 History Kwikpen U-100] Losartan Potassium 50 mg PO DAILY 04/29/23 05/13/23 History Mirtazapine 7.5 mg PO HS 04/29/23 05/13/23 History Allergies Allergy/AdvReac Type Severity Reaction Status Date / Time No Known Allergies Allergy Verified 05/13/23 16:11 Physical Exam Vitals: Vital Signs Temp Pulse Pulse Resp BP BP Pulse Ox 05/14/23 01:00 135 H 15 103/76 98 05/14/23 00:00 98.2 F 126 H 21 112/76 98 05/13/23 23:00 130 H 20 112/76 97 05/13/23 22:30 129 H 17 97 05/13/23 22:04 97.9 F 125 H 22 106/55 99 05/13/23 22:00 97.9 F 126 H 22 103/61 99 05/13/23 21:30 97.6 F 138 H 22 109/67 98 05/13/23 21:00 128 H 17 105/71 98 05/13/23 20:00 131 H 19 112/69 98 05/13/23 19:30 129 H 21 124/69 99 05/13/23 19:00 128 H 23 106/53 98 05/13/23 18:30 125 H 32 H 110/52 98 05/13/23 18:00 131 H 25 H 122/65 97 05/13/23 17:30 131 H 29 H 111/66 99 05/13/23 17:00 130 H 27 H 118/80 98 05/13/23 16:30 131 H 34 H 118/79 98 05/13/23 16:00 133 H 27 H 105/72 99 05/13/23 15:40 133 H 13 120/71 98 05/13/23 15:20 130 H 22 105/71 98 05/13/23 15:00 129 H 18 109/60 97 05/13/23 14:40 134 H 22 124/88 98 05/13/23 14:20 133 H 17 120/84 98 05/13/23 14:00 131 H 17 124/88 100 05/13/23 13:51 96.7 F L 131 H 16 124/88 100 Intake and Output 05/13/23 05/13/23 05/14/23 14:59 22:59 06:59 Intake Total 223.552 550 Output Total 480 Balance 223.552 70 Intake: IV 200 400 Sodium Chloride 0.9% 1, 200 400 000 ml @ 200 mls/hr IV . Q5H ON LICENSE OF [facility] Rx#:[id number] Intake, IV Titration 23.552 150 Amount D5-0.45% NaCl with KCl 150 20Meq/l 1,000 ml @ 150 mls/hr IV .[id number] [facility] Rx# :[id number] Insulin Regular 100 unit 23.552 In Sodium Chloride 0.9% 100 ml @ 0.1 UNITS/KG/HR 5.727 mls/hr IV .[id number] [facility] Rx#:[id number] Output: Urine 480 Other: Voiding Method Urinal # Voids 1 Weight 56.699 kg 56.699 kg GENERAL EXAM: Alert, disheveled 27-year-old white male, comfortable in no apparent distress. HEAD: Normocephalic and atraumatic EYES: Normal reaction of pupils, equal size. NOSE: Clear with pink turbinates. THROAT: No erythema or exudates. Poor dentition NECK: No masses, no JVD. CHEST: No chest wall deformity. LUNGS: Equal air entry with no crackles, wheeze, rhonchi or dullness. On room air. Kussmaul respirations. CVS: S1 and S2 normal with no audible murmur, regular rhythm. No extra heart sounds ABDOMEN: No hepatosplenomegaly, active bowel sounds, no guarding or rigidity. SPINE: No scoliosis or deformity SKIN: No rashes CENTRAL NERVOUS SYSTEM: No focal deficits, tone is normal in all 4 extremities. EXTREMITIES: There is no peripheral edema, clubbing, or cyanosis. Peripheral pulses are intact Results - Laboratory Findings CBC and BMP: 05/13/23 14:00 05/13/23 22:47 PT/INR, D-dimer PT 10.2 sec (10.0-12.5) 05/13/23 14:00 INR 0.9 (<1.2) 05/13/23 14:00 Abnormal lab findings: Abnormal Labs 05/13/23 05/13/23 05/13/23 13:53 14:00 14:00 WBC 27.9 H MCHC 30.0 L Plt Count 646 H D Neutrophils # (Manual) 25.67 H Metamyelocytes # (Man) 0.28 H Sodium Potassium Chloride Carbon Dioxide BUN Creatinine Glucose POC Glucose (mg/dL) >600 H Plasma Lactic Acid Len Phosphorus Magnesium Alkaline Phosphatase Albumin Urine Glucose (UA) 4+ H Urine Ketones 4+ H 05/13/23 05/13/23 05/13/23 14:00 14:00 16:24 WBC MCHC Plt Count Neutrophils # (Manual) Metamyelocytes # (Man) Sodium 136 L Potassium 5.7 H Chloride 93 L Carbon Dioxide <5 L* BUN 29 H Creatinine 1.32 H Glucose 697 H* POC Glucose (mg/dL) 588 H Plasma Lactic Acid Len 3.9 H* Phosphorus 7.3 H Magnesium 2.4 H Alkaline Phosphatase 138 H Albumin 5.2 H Urine Glucose (UA) Urine Ketones 05/13/23 05/13/23 05/13/23 17:07 19:07 19:34 WBC MCHC Plt Count Neutrophils # (Manual) Metamyelocytes # (Man) Sodium Potassium Chloride Carbon Dioxide BUN Creatinine Glucose POC Glucose (mg/dL) 569 H 477 H Plasma Lactic Acid Len 3.0 H* Phosphorus Magnesium Alkaline Phosphatase Albumin Urine Glucose (UA) Urine Ketones 05/13/23 05/13/23 05/13/23 20:09 20:09 20:47 WBC MCHC Plt Count Neutrophils # (Manual) Metamyelocytes # (Man) Sodium 147 H Potassium 5.6 H Chloride 109 H Carbon Dioxide <5 L* BUN 32 H Creatinine 1.43 H Glucose 471 H POC Glucose (mg/dL) 374 H Plasma Lactic Acid Len Phosphorus 7.0 H Magnesium Alkaline Phosphatase Albumin Urine Glucose (UA) Urine Ketones 05/13/23 05/13/23 05/13/23 21:55 22:47 22:47 WBC MCHC Plt Count Neutrophils # (Manual) Metamyelocytes # (Man) Sodium 146 H Potassium 5.6 H Chloride 114 H Carbon Dioxide <5 L* BUN 30 H Creatinine 1.37 H Glucose 316 H POC Glucose (mg/dL) 346 H Plasma Lactic Acid Len Phosphorus 5.0 H Magnesium Alkaline Phosphatase Albumin Urine Glucose (UA) Urine Ketones 05/13/23 05/14/23 05/14/23 22:59 00:06 00:57 WBC MCHC Plt Count Neutrophils # (Manual) Metamyelocytes # (Man) Sodium Potassium Chloride Carbon Dioxide BUN Creatinine Glucose POC Glucose (mg/dL) 340 H 199 H 170 H Plasma Lactic Acid Len Phosphorus Magnesium Alkaline Phosphatase Albumin Urine Glucose (UA) Urine Ketones Assessment and Plan Assessment: Acute diabetic ketoacidosis, likely secondary to medication noncompliance. Patient has had numerous episodes of DKA, recently admitted on 04/29/23 for the same Severe anion gap metabolic acidosis, secondary to above Severe dehydration Acute kidney injury, prerenal, secondary to above Hyperkalemia, improving Hyperphosphatemia Type 1 diabetes mellitus, with poor medication compliance. Acute leukocytosis, likely reactive to DKA Diabetic neuropathy History of major depression Chronic marijuana use Chronic ongoing nicotine dependence Plan: Patient's medications, labs, and chest x-ray were noted Continue DKA protocol Insulin infusion per protocol Fluid resuscitated with 2.5 L normal saline bolus in the emergency room, and has normal saline infusing at 200 ML's per hour Hyperkalemia is improving. There were no hyperacute T waves. Continue to monitor electrolytes every 4 hours. Patient will be monitored in the intensive care unit until his DKA resolves. Patient has had numerous psychiatric evaluations, and apparently has not met inpatient criteria. I'm concerned that the patient can not take care of himself at home, as he continues to be noncompliant with his medications. Unsure what can be done at this point. I have personally seen and examined the patient, performed the documentation and the assessment and plan as written. Number of minutes spent on the visit:20 Time with Patient: Greater than 30
[2023-05-14] MEDS: ONDANSETRON 4 MG/2 ML VIAL IVP PRN ×3 (02:15→20:15)
[2023-05-14 03:02] LABS: Glucose,Whole Blood 281 mg/dL (70-110)
[2023-05-14 03:34] LABS: HCT 38.9 % (39.0-53.0); HGB 11.9 gm/dL (13.0-17.5); Hypochromasia Marked; MCH 28.2 pg (25.0-35.0); MCHC 30.6 g/dL (31.0-37.0); MCV 92.1 fL (80.0-100.0); Mean Platelet Volume 6.9; Platelet Count 557 k/uL (150-450); RBC 4.22 m/uL (4.30-5.90); RDW 15.6 % (11.5-15.5); WBC 43.5 k/uL (3.8-10.6)
[2023-05-14 03:46] LABS: African American GFR (CKD) >90 (>60 ml/min/1.73 sqM); Blood Urea Nitrogen 26 mg/dL (9-20); Calcium 8.5 mg/dL (8.4-10.2); Chloride 110 mmol/L (98-107); Glucose 279 mg/dL (74-99); Non-African American GFR(CKD) >90 (>60 ml/min/1.73 sqM); Potassium 5.3 mmol/L (3.5-5.1); Sodium 139 mmol/L (137-145)
[2023-05-14 03:47] LABS: ALT 18 U/L (4-49); AST 23 U/L (17-59); African American GFR (CKD) >90 (>60 ml/min/1.73 sqM); Albumin 4.2 g/dL (3.5-5.0); Alkaline Phosphatase 117 U/L (38-126); Blood Urea Nitrogen 25 mg/dL (9-20); Calcium 8.5 mg/dL (8.4-10.2); Chloride 111 mmol/L (98-107); Glucose 282 mg/dL (74-99); Magnesium 2.5 mg/dL (1.6-2.3); Non-African American GFR(CKD) >90 (>60 ml/min/1.73 sqM); Phosphorus 3.1 mg/dL (2.5-4.5); Total Bilirubin 0.4 mg/dL (0.2-1.3); Total Protein 6.8 g/dL (6.3-8.2)
[2023-05-14 03:54] LABS: Potassium 5.4 mmol/L (3.5-5.1); Sodium 139 mmol/L (137-145)
[2023-05-14 03:58] LABS: Glucose,Whole Blood 245 mg/dL (70-110)
[2023-05-14 04:23] LABS: Carbon Dioxide <5 mmol/L (22-30)
[2023-05-14 05:05] LABS: Glucose,Whole Blood 199 mg/dL (70-110)
[2023-05-14 06:05] LABS: Glucose,Whole Blood 184 mg/dL (70-110)
[2023-05-14 07:00] LABS: Glucose,Whole Blood 154 mg/dL (70-110)
[2023-05-14 07:02] LABS: Lymphocytes # (M) 6.09 k/uL (1.0-4.8); Monocytes # (M) 0.87 k/uL (0-1.0); Neutrophils # (M) 36.54 k/uL (1.3-7.7); Neutrophils % (M) 84 %; Nucleated Red Blood Cells 0 /100 WBC (0-0); Total Cells Counted 100
[2023-05-14 07:03] LABS: Anisocytosis (M) Present
[2023-05-14 08:06] LABS: Glucose,Whole Blood 148 mg/dL (70-110)
[2023-05-14] MEDS: PANTOPRAZOLE 40 MG/10 ML VIAL IV SCH ×2 (08:58→20:15)
[2023-05-14 09:15] LABS: Glucose,Whole Blood 130 mg/dL (70-110)
[2023-05-14 10:24] LABS: Glucose,Whole Blood 137 mg/dL (70-110)
[2023-05-14 11:16] LABS: HCT 35.6 % (39.0-53.0); HGB 11.3 gm/dL (13.0-17.5); Hypochromasia Slight; MCH 28.1 pg (25.0-35.0); MCHC 31.7 g/dL (31.0-37.0); MCV 88.7 fL (80.0-100.0); Mean Platelet Volume 6.6; Platelet Count 472 k/uL (150-450); RBC 4.02 m/uL (4.30-5.90); RDW 15.8 % (11.5-15.5); WBC 29.3 k/uL (3.8-10.6)
[2023-05-14 11:37] LABS: African American GFR (CKD) >90 (>60 ml/min/1.73 sqM); Anion Gap 16 mmol/L; Blood Urea Nitrogen 19 mg/dL (9-20); Calcium 8.4 mg/dL (8.4-10.2); Carbon Dioxide 13 mmol/L (22-30); Chloride 110 mmol/L (98-107); Glucose 163 mg/dL (74-99); Non-African American GFR(CKD) >90 (>60 ml/min/1.73 sqM); Phosphorus 2.3 mg/dL (2.5-4.5); Potassium 4.5 mmol/L (3.5-5.1); Sodium 139 mmol/L (137-145)
[2023-05-14] MEDS ORDERED: Phosphorus Replacement Protoco 1 EACH MISC MISCELLANE PRN (11:50)
[2023-05-14] MEDS ORDERED: SODIUM PHOSPHATE 15 MMOL in DEXTROSE 5% IN WATER 250 ML IVPB ONE ×2 (12:30)
[2023-05-14 12:31] LABS: Glucose,Whole Blood 193 mg/dL (70-110)
[2023-05-14] MEDS: INSULIN REGULAR 100 UNIT in SODIUM CHLORIDE 0.9% 100 ML IV SCH (13:10)
[2023-05-14 13:16] LABS: Glucose,Whole Blood 219 mg/dL (70-110)
[2023-05-14 14:22] LABS: Glucose,Whole Blood 236 mg/dL (70-110)
[2023-05-14 15:16] LABS: Glucose,Whole Blood 260 mg/dL (70-110)
[2023-05-14 16:17] LABS: Glucose,Whole Blood 255 mg/dL (70-110)
[2023-05-14 17:37] LABS: Glucose,Whole Blood 253 mg/dL (70-110)
[2023-05-14 18:23] LABS: Glucose,Whole Blood 231 mg/dL (70-110)
[2023-05-14 19:57] LABS: Glucose,Whole Blood 190 mg/dL (70-110)
[2023-05-14 20:38] LABS: African American GFR (CKD) >90 (>60 ml/min/1.73 sqM); Anion Gap 13 mmol/L; Blood Urea Nitrogen 12 mg/dL (9-20); Calcium 8.4 mg/dL (8.4-10.2); Carbon Dioxide 18 mmol/L (22-30); Chloride 104 mmol/L (98-107); Glucose 195 mg/dL (74-99); Non-African American GFR(CKD) >90 (>60 ml/min/1.73 sqM); Sodium 135 mmol/L (137-145)
[2023-05-14 20:58] LABS: Glucose,Whole Blood 209 mg/dL (70-110)
[2023-05-14 22:05] LABS: Glucose,Whole Blood 190 mg/dL (70-110)
[2023-05-14 22:57] LABS: Glucose,Whole Blood 168 mg/dL (70-110)
[2023-05-15] LABS: Glucose,Whole Blood 179 mg/dL (70-110)
--- NOTE | 2023-05-15 01:59 | HP ---
HISTORY AND PHYSICAL CHIEF COMPLAINT: DKA. HISTORY OF PRESENT ILLNESS: This is another admission of this 27-year-old type 1 diabetic. He has been on the antibiotics almost weekly. This is largely due to his depression. He has been seen by Psychiatry, and admitted to [address] [place] [address] and even admitted to psych institution in [place], but he continues to play games with his disease. He will go home and take his insulin for a short period of time and then not for whatever reason. He came back in this time again in DKA. REVIEW OF SYSTEMS: Unobtainable. He is quite lethargic. PAST MEDICAL HISTORY, FAMILY HISTORY, PERSONAL AND SOCIAL HISTORIES: Otherwise unobtainable or unchanged. PHYSICAL EXAMINATION: GENERAL: He is lethargic. He also has nausea and vomiting. VITAL SIGNS: Reveal sinus tachycardia. He is lethargic. SKIN: Dry. HEENT: Head, eyes, nose and mouth were normal. LUNGS: He has good breath sounds bilaterally. HEART: He demonstrates sinus tachycardia on heart exam. ABDOMEN: Flat. EXTREMITIES: Normal. IMPRESSION: 1. Diabetic ketoacidosis. 2. Depression. 3. Type 1 insulin-dependent diabetes mellitus. 4. Noncompliance. 5. Gastroparesis. 6. Peripheral neuropathy. PLAN: 1. Bedrest. 2. IV fluids. 3. DKA protocol. MMODL / IJN: [id number] /
[2023-05-15 02:08] LABS: Glucose,Whole Blood 182 mg/dL (70-110)
[2023-05-15 03:08] LABS: Glucose,Whole Blood 170 mg/dL (70-110)
--- NOTE | 2023-05-15 04:35 | PN ---
PROGRESS NOTE DATE OF SERVICE: 05/14/2023 CHIEF COMPLAINT: Diabetic ketoacidosis and vomiting. HISTORY OF PRESENT ILLNESS: This gentleman remains slightly lethargic. PHYSICAL EXAMINATION: VITAL SIGNS: Normal. CHEST: Clear. CARDIAC: Normal. EXTREMITIES: Normal. NEUROLOGIC: Lethargic. Otherwise normal. IMPRESSION: 1. Diabetic ketoacidosis. 2. Gastroparesis. 3. Peripheral neuropathy. 4. Depression. 5. Noncompliant individual. PLAN: Continue with ICU management with IV fluids, insulin drip. MMSHANEL / IJN: [id number] /
[2023-05-15 05:18] LABS: Glucose,Whole Blood 169 mg/dL (70-110)
[2023-05-15] MEDS ORDERED: DEXTROSE 50% SYRINGE 50 ML IVP PRN ×2 (05:20)
[2023-05-15] MEDS: D5-0.45% NACL WITH KCL 20MEQ/L 1,000 ML IV SCH (05:31)
[2023-05-15 07:07] LABS: Glucose,Whole Blood 277 mg/dL (70-110)
[2023-05-15 07:26] LABS: Basophils % (A) 0 %; Eosinophils % (A) 0 %; HCT 32.9 % (39.0-53.0); HGB 10.9 gm/dL (13.0-17.5); Lymphocytes # (A) 1.6 k/uL (1.0-4.8); Lymphocytes % (A) 12 %; MCH 28.8 pg (25.0-35.0); MCV 87.2 fL (80.0-100.0); Mean Platelet Volume 6.7; Monocytes # (A) 0.6 k/uL (0-1.0); Monocytes % (A) 5 %; Neutrophils # (A) 10.6 k/uL (1.3-7.7); Neutrophils % (A) 81 %; Platelet Count 348 k/uL (150-450); RBC 3.77 m/uL (4.30-5.90); RDW 15.8 % (11.5-15.5); WBC 13.1 k/uL (3.8-10.6)
[2023-05-15 07:57] LABS: African American GFR (CKD) >90 (>60 ml/min/1.73 sqM); Anion Gap 11 mmol/L; Blood Urea Nitrogen 9 mg/dL (9-20); Calcium 8.2 mg/dL (8.4-10.2); Carbon Dioxide 18 mmol/L (22-30); Chloride 103 mmol/L (98-107); Glucose 204 mg/dL (74-99); Non-African American GFR(CKD) >90 (>60 ml/min/1.73 sqM); Sodium 132 mmol/L (137-145)
[2023-05-15] MEDS: INSULIN DETEMIR (LEVEMIR) 100 UNIT/ML SYR SQ SCH (08:02)
[2023-05-15] MEDS: PANTOPRAZOLE 40 MG/10 ML VIAL IV SCH ×2 (08:03→19:48)
[2023-05-15] MEDS: ONDANSETRON 4 MG/2 ML VIAL IVP PRN (08:03)
[2023-05-15] MEDS: INSULIN ASPART (NovoLOG) 100 UNIT/ML VIAL SQ SCH ×7 (08:03→20:08)
[2023-05-15 11:29] LABS: Glucose,Whole Blood 260 mg/dL (70-110)
--- NOTE | 2023-05-15 11:50 | P.PN ---
Subjective Progress Note Date: 05/15/23 This is a 27-year-old white male with past medical history significant for type 1 diabetes mellitus and medication noncompliance. Patient has had numerous hospital admissions for diabetic ketoacidosis, most recent hospital admission back on 04/29/2023 for the same. Patient was brought in earlier yesterday afternoon by EMS, he was confused and tachypneic. Patient's blood sugars were elevated at home. Patient states that he was taking his insulin. He was having nausea and vomiting. Denies any abdominal pain, diarrhea, constipation, hematemesis. Denies any infectious symptoms. He was found to be in DKA. Serum bicarb was less than 5, anion gap unmeasurable, glucose 588, and he was acetone positive. Patient has been started on the DKA protocol. Insulin is currently infusing at 5.7 units per hour. potassium of 5.7. No ekg changes. CBC on arrival showed a WBC count of 27.9, hemoglobin 13.6, hematocrit 45.1, platelets 646. Most recent BMP shows sodium 146, potassium 5.6, chloride 114, serum bicarb still less than 5, anion gap unmeasurable, BUN 30, creatinine elevated at 1.37, glucose is down to 316. Lactic acid level not elevated. He was given 2 A of sodium bicarbonate emergency room. He was fluid resuscitated with 2.5 L normal saline bolus, and has normal saline infusing at 200 ML's per hour. He is alert and able to answer most of my questions. Lying in bed, on room air, in no acute distress. He remains tachycardic and tachypneic. Blood pressure is stable. He will be monitored in the intensive care unit until his DKA resolves. The patient is seen today 05/15/2023 in follow-up on the selective care unit. He was transferred out of the ICU this morning. He is currently resting comfortably in bed. Awake and alert in no acute distress. He continues with a poor appetite. He did receive Zofran for some nausea. He's been maintaining good O2 saturations in the 90s. He is afebrile. Hemodynamically stable. No tachycardia. No tachypnea. White count 13.1. Hemoglobin 10.9. Platelets 348. Sodium 132. Potassium 4.0. Bicarb 18. BUN 9. Creatinine 0.60. Glucose 204. He has been transitioned to Levemir and NovoLog sliding scale. Objective - Vital Signs Vital signs: Vital Signs Temp 98.2 F 05/15/23 08:00 Pulse 97 05/15/23 05:00 Resp 18 05/15/23 08:00 BP 118/96 05/15/23 08:00 Pulse Ox 97 05/15/23 08:00 FiO2 Intake & Output 05/14/23 05/15/23 05/15/23 18:59 06:59 18:59 Intake Total 6907.286 9263.571 Output Total 1300 850 Balance 551.386 844.571 Weight 69.2 kg 68.7 kg Intake: IV 1800 1650 D5-0.45% NaCl with KCl 1800 1650 20Meq/l 1,000 ml @ 150 mls/hr IV .Q6H40M [facility] Rx# :[id number] Intake, IV Titration 51.386 44.571 Amount Insulin Regular 100 unit 51.386 44.571 In Sodium Chloride 0.9% 100 ml @ 0.1 UNITS/KG/HR 5.727 mls/hr IV .[id number] [facility] Rx#:[id number] Output: Urine 1300 850 Other: Voiding Method Urinal Urinal Urinal # Voids 3 - Exam GENERAL EXAM: Alert, 27-year-old male, on room air, comfortable in no apparent distress. HEAD: Normocephalic and atraumatic EYES: Normal reaction of pupils, equal size. NOSE: Clear with pink turbinates. THROAT: No erythema or exudates. Poor dentition NECK: No masses, no JVD. CHEST: No chest wall deformity. LUNGS: Equal air entry with no crackles, wheeze, rhonchi or dullness. CVS: S1 and S2 normal with no audible murmur, regular rhythm. No extra heart sounds ABDOMEN: No hepatosplenomegaly, active bowel sounds, no guarding or rigidity. SPINE: No scoliosis or deformity SKIN: No rashes CENTRAL NERVOUS SYSTEM: No focal deficits, tone is normal in all 4 extremities. EXTREMITIES: There is no peripheral edema, clubbing, or cyanosis. Peripheral pulses are intact - Labs CBC & Chem 7: 05/15/23 06:37 05/15/23 06:37 Labs: Abnormal Lab Results - Last 24 Hours (Table) 05/14/23 05/14/23 05/14/23 Range/Units 11:06 12:30 13:15 WBC (3.8-10.6) k/uL RBC (4.30-5.90) m/uL Hgb (13.0-17.5) gm/dL Hct (39.0-53.0) % RDW (11.5-15.5) % Neutrophils # (1.3-7.7) k/uL Sodium (137-145) mmol/L Chloride 110 H (98-107) mmol/L Carbon Dioxide 13 L (22-30) mmol/L Creatinine (0.66-1.25) mg/dL Glucose 163 H (74-99) mg/dL POC Glucose (mg/dL) 193 H 219 H (70-110) mg/dL Calcium (8.4-10.2) mg/dL Phosphorus 2.3 L (2.5-4.5) mg/dL 05/14/23 05/14/23 05/14/23 Range/Units 14:20 15:14 16:15 WBC (3.8-10.6) k/uL RBC (4.30-5.90) m/uL Hgb (13.0-17.5) gm/dL Hct (39.0-53.0) % RDW (11.5-15.5) % Neutrophils # (1.3-7.7) k/uL Sodium (137-145) mmol/L Chloride (98-107) mmol/L Carbon Dioxide (22-30) mmol/L Creatinine (0.66-1.25) mg/dL Glucose (74-99) mg/dL POC Glucose (mg/dL) 236 H 260 H 255 H (70-110) mg/dL Calcium (8.4-10.2) mg/dL Phosphorus (2.5-4.5) mg/dL 05/14/23 05/14/23 05/14/23 Range/Units 17:36 18:21 19:52 WBC (3.8-10.6) k/uL RBC (4.30-5.90) m/uL Hgb (13.0-17.5) gm/dL Hct (39.0-53.0) % RDW (11.5-15.5) % Neutrophils # (1.3-7.7) k/uL Sodium 135 L (137-145) mmol/L Chloride (98-107) mmol/L Carbon Dioxide 18 L (22-30) mmol/L Creatinine 0.64 L (0.66-1.25) mg/dL Glucose 195 H (74-99) mg/dL POC Glucose (mg/dL) 253 H 231 H (70-110) mg/dL Calcium (8.4-10.2) mg/dL Phosphorus 2.0 L (2.5-4.5) mg/dL 05/14/23 05/14/23 05/14/23 Range/Units 19:55 20:57 22:04 WBC (3.8-10.6) k/uL RBC (4.30-5.90) m/uL Hgb (13.0-17.5) gm/dL Hct (39.0-53.0) % RDW (11.5-15.5) % Neutrophils # (1.3-7.7) k/uL Sodium (137-145) mmol/L Chloride (98-107) mmol/L Carbon Dioxide (22-30) mmol/L Creatinine (0.66-1.25) mg/dL Glucose (74-99) mg/dL POC Glucose (mg/dL) 190 H 209 H 190 H (70-110) mg/dL Calcium (8.4-10.2) mg/dL Phosphorus (2.5-4.5) mg/dL 05/14/23 05/14/23 05/15/23 Range/Units 22:56 23:59 02:07 WBC (3.8-10.6) k/uL RBC (4.30-5.90) m/uL Hgb (13.0-17.5) gm/dL Hct (39.0-53.0) % RDW (11.5-15.5) % Neutrophils # (1.3-7.7) k/uL Sodium (137-145) mmol/L Chloride (98-107) mmol/L Carbon Dioxide (22-30) mmol/L Creatinine (0.66-1.25) mg/dL Glucose (74-99) mg/dL POC Glucose (mg/dL) 168 H 179 H 182 H (70-110) mg/dL Calcium (8.4-10.2) mg/dL Phosphorus (2.5-4.5) mg/dL 05/15/23 05/15/23 05/15/23 Range/Units 03:08 05:17 06:37 WBC 13.1 H (3.8-10.6) k/uL RBC 3.77 L (4.30-5.90) m/uL Hgb 10.9 L (13.0-17.5) gm/dL Hct 32.9 L (39.0-53.0) % RDW 15.8 H (11.5-15.5) % Neutrophils # 10.6 H (1.3-7.7) k/uL Sodium (137-145) mmol/L Chloride (98-107) mmol/L Carbon Dioxide (22-30) mmol/L Creatinine (0.66-1.25) mg/dL Glucose (74-99) mg/dL POC Glucose (mg/dL) 170 H 169 H (70-110) mg/dL Calcium (8.4-10.2) mg/dL Phosphorus (2.5-4.5) mg/dL 05/15/23 05/15/23 Range/Units 06:37 07:05 WBC (3.8-10.6) k/uL RBC (4.30-5.90) m/uL Hgb (13.0-17.5) gm/dL Hct (39.0-53.0) % RDW (11.5-15.5) % Neutrophils # (1.3-7.7) k/uL Sodium 132 L (137-145) mmol/L Chloride (98-107) mmol/L Carbon Dioxide 18 L (22-30) mmol/L Creatinine 0.60 L (0.66-1.25) mg/dL Glucose 204 H (74-99) mg/dL POC Glucose (mg/dL) 277 H (70-110) mg/dL Calcium 8.2 L (8.4-10.2) mg/dL Phosphorus (2.5-4.5) mg/dL Assessment and Plan Assessment: Acute diabetic ketoacidosis, likely secondary to medication noncompliance. Patient has had numerous episodes of DKA, recently admitted on 04/29/23 for the same Severe anion gap metabolic acidosis, secondary to above. Recovered Severe dehydration, improved Acute kidney injury, prerenal, secondary to above, recovered Hyperkalemia, recovered Hyperphosphatemia Type 1 diabetes mellitus, with poor medication compliance. Acute leukocytosis, likely reactive to DKA, improving Diabetic neuropathy History of major depression Chronic marijuana use Chronic ongoing nicotine dependence Plan: The patient was seen and evaluated Medications and labs reviewed Cleared for transfer out of the intensive care unit Transitioned to [facility] Again educated regarding the importance of medication compliance and follow-up We will continue to follow I have personally seen and examined the patient, performed the documentation and the assessment and plan as written. Number of minutes spent on the visit: 10.
[2023-05-15 13:52] VITALS: BMI 18.9
--- NOTE | 2023-05-15 15:41 | CDI ---
Documentation Clarification Form Date: From: Aditi Jordan Phone: [phone] Admit Date: 05/13/2023 05:36:00 PM Patient Name: Raul Marquez Visit Number: [id number] Discharge Date: ATTENTION: The Clinical Documentation Specialists (CDI) and [facility] Coding Staff appreciate your assistance in clarifying documentation. Please respond to the clarification below the line at the bottom and electronically sign. The CDI & [facility] Coding staff will review the response and follow-up if needed. Please note: Queries are made part of the Legal Health Record. If you have any questions, please contact the author of this message via ITS. Dr. Brown Valenzuela Patient has a documented BMI of 18.9kg/m2. Additional clarification is requested. History/Risk Factors: "27-year-old male to the emergency department for evaluation of weakness significant difficulty breathing altered mental status and confusion unable to provide history, patient is well-known to our facility" - Per ED Note on 05/13 "past medical history significant for type 1 diabetes mellitus and medication noncompliance" - Per Pulmonary Consult Note on 05/14 Clinical Indicators: Per Nutrition Assessment on 05/15: "Unintended weight loss" "possible weight loss 8% of UBW in < 1 month" Patients weight is 68.7kg Patients height is 6'3" Calculated BMI is 18.9 Treatments: Nutrition Consult, "Glucerna TID with diet advancement" - Per Nutrition Assessment on 05/15 Please clarify, is there is an additional diagnosis that is clinically appropriate for this patient? [ ] Underweight [ ] Malnutrition, (further specify severity and type) [ ] Other, please specify [ ] Unable to determine MTDD
[2023-05-15 16:31] LABS: Glucose,Whole Blood 195 mg/dL (70-110)
[2023-05-15] MEDS ORDERED: INSULIN ASPART (NovoLOG) 100 UNIT/ML VIAL SQ SCH (17:30)
[2023-05-15 20:00] LABS: Glucose,Whole Blood 162 mg/dL (70-110)
[2023-05-15] MEDS ORDERED: INSULIN DETEMIR (LEVEMIR) 100 UNIT/ML SYR SQ SCH (21:00)
[2023-05-16 00:33] VITALS: RESP 16
[2023-05-16 07:05] LABS: Glucose,Whole Blood 79 mg/dL (70-110)
[2023-05-16] MEDS: INSULIN ASPART (NovoLOG) 100 UNIT/ML VIAL SQ SCH ×5 (08:12→12:07)
[2023-05-16 08:20] LABS: Glucose,Whole Blood 208 mg/dL (70-110)
[2023-05-16] MEDS: INSULIN DETEMIR (LEVEMIR) 100 UNIT/ML SYR SQ SCH (08:23)
[2023-05-16] MEDS: PANTOPRAZOLE 40 MG/10 ML VIAL IV SCH (08:35)
[2023-05-16 09:39] VITALS: TEMP 98
[2023-05-16 11:22] VITALS: BP 106/64; PULSE 95
[2023-05-16 12:07] LABS: Glucose,Whole Blood 87 mg/dL (70-110)
--- NOTE | 2023-05-16 16:06 | CDI ---
Documentation Clarification Form Date: 05/15/2023 03:41:00 PM From: Aditi Jordan Phone: [phone] Admit Date: 05/13/2023 05:36:00 PM Patient Name: Raul Marquez Visit Number: [id number] Discharge Date: 05/16/2023 01:05:00 PM ATTENTION: The Clinical Documentation Specialists (CDI) and [facility] Coding Staff appreciate your assistance in clarifying documentation. Please respond to the clarification below the line at the bottom and electronically sign. The CDI & [facility] Coding staff will review the response and follow-up if needed. Please note: Queries are made part of the Legal Health Record. If you have any questions, please contact the author of this message via ITS. Dr. Brown Valenzuela Patient has a documented BMI of 18.9kg/m2. Additional clarification is requested. History/Risk Factors: "27-year-old male to the emergency department for evaluation of weakness significant difficulty breathing altered mental status and confusion unable to provide history, patient is well-known to our facility" - Per ED Note on 05/13 "past medical history significant for type 1 diabetes mellitus and medication noncompliance" - Per Pulmonary Consult Note on 05/14 Clinical Indicators: Per Nutrition Assessment on 05/15: "Unintended weight loss" "possible weight loss 8% of UBW in < 1 month" Patients weight is 68.7kg Patients height is 6'3" Calculated BMI is 18.9 Treatments: Nutrition Consult, "Glucerna TID with diet advancement" - Per Nutrition Assessment on 05/15 Please clarify, is there is an additional diagnosis that is clinically appropriate for this patient? [ ] Underweight [ ] Malnutrition, (further specify severity and type) [ ] Other, please specify [ ] Unable to determine (Template Last Revised: June 2020) MTDD
--- NOTE | 2023-05-17 07:58 | PN ---
PROGRESS NOTE This is a Pulmonary/Critical Care Progress Note. SUBJECTIVE: This is a 27-year-old male with a history of type 1 diabetes. The patient was readmitted to the hospital recently with a diagnosis of diabetic ketoacidosis. The patient had multiple admissions to this hospital for same. The patient is currently on room air. He is not receiving IV fluids. His most recent glucose was 208. He typically is admitted through the emergency department, finds his way up into the intensive care unit, reverses relatively quickly, transitions to his usual insulin requirements, is discharged to the floor and then typically in a day or so discharged home. Currently, the patient is on room air. No IV fluids. PHYSICAL EXAMINATION: VITAL SIGNS: Stable and include temperature of 98, heart rate 82, respiratory rate 18, blood pressure of 106/64 and a mean of 78, and a room air saturation between 99% to 100%. GENERAL: He appears in no acute distress. HEENT: Examination is grossly unremarkable. NECK: Supple. CARDIOVASCULAR: Examination reveals regular rhythm and rate. S1, S2 normal. LUNGS: Reveal clear breath sounds. ABDOMEN: Soft. Bowel sounds are heard. EXTREMITIES: Intact. No cyanosis, clubbing, or edema. SKIN: Without rash. NEUROLOGIC: Brief but nonfocal. LABORATORY DATA: Current laboratory data from today has not been done. The most recent blood sugar is 87. Labs from May 15 have been reviewed. ASSESSMENT: 1. Acute diabetic ketoacidosis, secondary to noncompliance, in a patient with insulin dependent/type 1 diabetes. 2. Anion gap metabolic acidosis, resolved. 3. Severe dehydration, resolved. 4. Acute kidney injury, resolved. 5. Hyperkalemia and hyperphosphatemia. 6. Type 1 diabetes. 7. Acute leukocytosis secondary to diabetic ketoacidosis. 8. Diabetic neuropathy. 9. History of major depression. 10.Chronic marijuana use. 11.Chronic and ongoing nicotine dependence. PLAN: The patient is stable from the pulmonary standpoint. The patient was transitioned from insulin from the DKA protocol to his regular insulin requirements. In my opinion, the patient should have a court-appointed guardian, as he demonstrates self-destructive behavior by not being compliant with his insulin medications, and having multiple admissions to this hospital for diabetic ketoacidosis. Nonetheless, the patient is currently stable and could be considered for possible discharge. No pulmonary or hemodynamic issues at this time. MMODL / IJN: [id number] /
--- NOTE | 2023-05-20 07:59 | MISC ---
MISCELLANOUS REPORT Protein-calorie malnutrition. MMODL / IJN: [id number] /
--- NOTE | 2023-05-20 23:33 | DS ---
DISCHARGE SUMMARY CHIEF COMPLAINT: DKA. HISTORY OF PRESENT ILLNESS AND PHYSICAL EXAM: Details of this man's history and physical can be found in the initial workup. LABORATORY STUDIES: While he was in the hospital, he had laboratory studies, details of which can be found in the laboratory section of his chart. COURSE IN THE HOSPITAL: After admission, he was placed on bedrest in the intensive care unit and started on DKA protocol. Blood sugars came down and they became more awake and alert and the nausea and vomiting stopped. His diet was advanced and was doing well and felt he could be discharged again on the . FINAL DIAGNOSES: 1. Diabetic ketoacidosis. 2. Major depression. 3. Uncontrolled type 1 insulin-dependent diabetes mellitus due to noncompliance. 4. Gastroparesis. 5. Peripheral neuropathy. OPERATIONS: None. CONSULTATIONS: Intensive Medicine is improved. MMODL / TRAMN: [id number] /
--- NOTE | 2023-05-21 01:28 | PN ---
PROGRESS NOTE DATE OF SERVICE: 05/15/2023 CHIEF COMPLAINT: DKA. HISTORY OF PRESENT ILLNESS: This gentleman is doing much better. He is awake and more alert, but still quite nauseated, not eating well. Blood sugars have come down. PHYSICAL EXAMINATION: CHEST: Clear. CARDIAC: Normal. ABDOMEN: Flat, soft. IMPRESSION: 1. Diabetic ketoacidosis. 2. Uncontrolled type 1 insulin-dependent diabetes mellitus. 3. Depression. 4. Gastroparesis. 5. Peripheral neuropathy. PLAN: Gradually increase his activity and diet. He will probably be able to go home tomorrow. MMODL / IJN: [id number] /
== END 2023-05-16 13:05 | disposition home or self-care (01) | DRG 420 ==
LOC: EC 13:50 → 2SICU 17:36 → 3SCARD 05-15 08:33
PROVIDERS: ADMIT Family Medicine; ATTEND Family Medicine
DX: E10.10 Type 1 diabetes mellitus with ketoacidosis without coma (principal); N17.9 Acute kidney failure, unspecified; E46 Unspecified protein-calorie malnutrition; E83.39 Other disorders of phosphorus metabolism; Z20.822 Contact with and (suspected) exposure to COVID-19; E10.40 Type 1 diabetes mellitus with diabetic neuropathy, unspecified; F32.9 Major depressive disorder, single episode, unspecified; J45.909 Unspecified asthma, uncomplicated; Z79.4 Long term (current) use of insulin; F17.210 Nicotine dependence, cigarettes, uncomplicated; E86.0 Dehydration; E10.43 Type 1 diabetes mellitus with diabetic autonomic (poly)neuropathy; E87.5 Hyperkalemia; Z68.1 Body mass index [BMI] 19.9 or less, adult; D72.829 Elevated white blood cell count, unspecified; K31.84 Gastroparesis; Z91.148 Patient's other noncompliance with medication regimen for other reason; Z91.199 Patient's noncompliance with other medical treatment and regimen due to unspecified reason; Z79.899 Other long term (current) drug therapy
CPT/HCPCS: 36415; 80048; 80051; 80053; 81003; 82009; 82565; 82947; 83036; 83605; 83735; 83880; 84100; 84484; 84520; 85025; 85027; 85610; 85730; 93005

== ENCOUNTER 2023-05-19 07:26 | Inpatient (IN) | payer OTHER ==
[2023-05-19] MEDS ORDERED: INSULIN REGULAR BOLUS (FROM DRIP BAG) IV ONE (07:33)
[2023-05-19] MEDS ORDERED: Magnesium Replacement Protocol 1 EACH MISC MISCELLANE PRN (07:33)
[2023-05-19] MEDS ORDERED: Potassium Replacement Protocol 1 EACH MISC MISCELLANE PRN (07:33)
[2023-05-19] MEDS ORDERED: DEXTROSE 50% SYRINGE 50 ML IVP PRN ×2 (07:33)
[2023-05-19] MEDS ORDERED: SODIUM CHLORIDE 0.9% 2,000 ML IV ONE (07:36)
[2023-05-19] MEDS ORDERED: SODIUM CHLORIDE 0.9% 1,000 ML IV ONE (07:36)
--- NOTE | 2023-05-19 07:42 | ED ---
General Adult HPI - General Stated complaint: ams Time Seen by Provider: 05/19/23 07:30 Source: patient, RN notes reviewed, old records reviewed - History of Present Illness Initial comments: This is a 27-year-old male with a past medical history significant for diabetes. Patient was found significant altered at his home and EMS was called. According to EMS it was all the history that they had received EMS stated he was not coherent enough to give any history as well. EMS that his blood pressure was in high 80s systolically. No other history is available at this time - Related Data Home Medications Medication Instructions Recorded Confirmed Insulin Detemir (Levemir) [Levemir] 30 unit SQ HS 03/07/23 05/13/23 Ergocalciferol [Vitamin D2 (1250 1,250 mcg PO Q30D 04/29/23 05/13/23 Mcg = 21254 Iu)] Famotidine [Pepcid] 20 mg PO BID 04/29/23 05/13/23 Gabapentin 600 mg PO TID 04/29/23 05/13/23 Insulin Lispro [Insulin Lispro 7 units SQ AC-TID 04/29/23 05/13/23 Kwikpen U-100] Losartan Potassium 50 mg PO DAILY 04/29/23 05/13/23 Mirtazapine 7.5 mg PO HS 04/29/23 05/13/23 Allergies Allergy/AdvReac Type Severity Reaction Status Date / Time No Known Allergies Allergy Verified 05/19/23 07:39 Review of Systems ROS Statement: Those systems with pertinent positive or pertinent negative responses have been documented in the HPI. ROS Other: All systems not noted in ROS Statement are negative. Past Medical History Past Medical History: Asthma, Diabetes Mellitus, Neurologic Disorder, Skin Disorder Additional Past Medical History / Comment(s): IDDM type I, neuropathy bilateral feet, DKA, eczema. History of Any Multi-Drug Resistant Organisms: None Reported Past Surgical History: Adenoidectomy Additional Past Surgical History / Comment(s): 2003 Recent EGD- gastritis Past Anesthesia/Blood Transfusion Reactions: No Reported Reaction Past Psychological History: Anxiety, Depression Additional Psychological History / Comment(s): Pt has had multiple psychiatric admissions for depression/suicide attempts. Smoking Status: Former smoker Past Alcohol Use History: None Reported Additional Past Alcohol Use History / Comment(s): Pt started smoking cigarettes as a teen and quit "long ago." Pt started occasional vaping in 2009. Past Drug Use History: Marijuana Additional Drug Use History / Comment(s): Occasional - Past Family History Mother Family Medical History: CVA/TIA Additional Family Medical History / Comment(s): TIA Father Family Medical History: Hyperlipidemia, Hypertension Additional Family Medical History / Comment(s): . General Exam - General Exam Comments Initial Comments: GENERAL: Patient is well-developed and well-nourished. ENT: Neck is soft and supple. No significant lymphadenopathy is noted. Oropharynx is clear. Dry mucous membranes. Neck has full range of motion without eliciting any pain. EYES: The sclera were anicteric and conjunctiva were pink and moist. Extraocular movements were intact and pupils were equal round and reactive to light. PULMONARY: Unlabored respirations. Good breath sounds bilaterally. No audible rales rhonchi or wheezing was noted. CARDIOVASCULAR: There is a regular rate and rhythm without any murmurs gallops or rubs. ABDOMEN: Soft and nontender with normal bowel sounds. No palpable organomegaly was noted. There is no palpable pulsatile mass. SKIN: Skin is clear with no lesions or rashes and otherwise unremarkable. NEUROLOGIC: Patient is alert and oriented 0. Cranial nerves II through XII are grossly intact. Patient is moving all 4 extremities MUSCULOSKELETAL: Normal extremities with adequate strength and full range of motion. No lower extremity swelling or edema. No calf tenderness. LYMPHATICS: No significant lymphadenopathy is noted PSYCHIATRIC: Normal psychiatric evaluation. Course Vital Signs 05/19/23 05/19/23 05/19/23 07:34 08:30 08:55 Temperature 86.4 F L Pulse Rate 83 82 86 Respiratory 22 20 22 Rate Blood Pressure 91/44 81/39 85/50 O2 Sat by Pulse 99 100 100 Oximetry Medical Decision Making - Medical Decision Making I interpreted the EKG. EKG shows very poor quality started by myself. EKG shows a sinus rhythm at 83 bpm DE interval is 2+ QRS is 142 QT intervals 422 QTC is 462 EKG shows no epistaxis. Was pt. sent in by a medical professional or institution (, PA, WEBBING WE[employer]ER, urgent care, hospital, or prison...) When possible be specific @ -No Did you speak to anyone other than the patient for history (EMS, parent, family, police, friend...)? What history was obtained from this source @ -EMS gave all the history Did you review nursing and triage notes (agree or disagree)? Why? @ -I reviewed and agree with nursing and triage notes Were old charts reviewed (outside hosp., previous admission, EMS record, old EKG, old radiological studies, urgent care reports/EKG's, prison records)? Report findings @ -Prior lab work prior radiological studies in prior charts were reviewed by myself Differential Diagnosis (chest pain, altered mental status, abdominal pain women, abdominal pain men, vaginal bleeding, weakness, fever, dyspnea, syncope, headache, dizziness, GI bleed, back pain, seizure, CVA, palpatations, mental health, musculoskeletal)? @ -Differential Altered Mental Status: Hypoglycemia, DKA, hypercapnia, ETOH, overdose, CO poisoning, trauma, myxedema coma, HTN encephalopathy, infection, encephalitis, psychosis, intercranial hemorrhage, hepatic encephalopathy, meningitis, CVA, this is not meant to be an all-inclusive list EKG interpreted by me (3pts min.). @ -As above X-rays interpreted by me (1pt min.). @ -None done CT interpreted by me (1pt min.). @ -None done U/S interpreted by me (1pt. min.). @ -None done What testing was considered but not performed or refused? (CT, X-rays, U/S, labs)? Why? @ -None What meds were considered but not given or refused? Why? @ -None Did you discuss the management of the patient with other professionals (professionals i.e. , PA, WE[employer]ING WE[employer]ER, lab, RT, psych nurse, social welfare research worker, carpenter inspector, teacher, casino surveillance officer, family independence case manager)? Give summary @ -I spoke with Dr. Schwartz and Dr. Bui and patient will be admitted to the ICU Was smoking cessation discussed for >3mins.? @ -No Was critical care preformed (if so, how long)? @ -35 minutes Were there social determinants of health that impacted care today? How? (Homelessness, low income, unemployed, alcoholism, drug addiction, transportation, low edu. Level, literacy, decrease access to med. care, longterm, rehab)? @ -No Was there de-escalation of care discussed even if they declined (Discuss DNR or withdrawal of care, Hospice)? DNR status @ -No What co-morbidities impacted this encounter? (DM, HTN, Smoking, COPD, CAD, Cancer, CVA, ARF, Chemo, Hep., AIDS, mental health diagnosis, sleep apnea, morbid obesity)? @ -None Was patient admitted / discharged? Hospital course, mention meds given and route, prescriptions, significant lab abnormalities, going to OR and other pertinent info. @ -Patient was given 3 L of fluid initially. Patient was also started on an insulin drip after insulin bolus was given. Patient's temperature was low so patient was warmed up with a bear hugger and a warming blanket. Patient will be admitted to Dr. Schwartz and Dr. Bui will see the patient for critical care management Undiagnosed new problem with uncertain prognosis? @ -No Drug Therapy requiring intensive monitoring for toxicity (Heparin, Nitro, Insulin, Cardizem)? @ -No Were any procedures done? @ -No Diagnosis/symptom? @ -Diabetic ketoacidosis Acute, or Chronic, or Acute on Chronic? @ -Acute Uncomplicated (without systemic symptoms) or Complicated (systemic symptoms)? @ -Complicated Side effects of treatment? @ -No Exacerbation, Progression, or Severe Exacerbation? @ -No Poses a threat to life or bodily function? How? (Chest pain, [place], [place], pneumonia, PE, COPD, DKA, ARF, appy, cholecystitis, CVA, Diverticulitis, Homicidal, Suicidal, threat to staff... and all critical care pts) @ -Yes this can lead to severe dehydration a I abnormalities and - Lab Data Result diagrams: 05/19/23 07:43 05/19/23 07:43 Lab Results 05/19/23 05/19/23 05/19/23 Range/Units 07:42 07:43 07:43 WBC 37.1 H (3.8-10.6) k/uL RBC 3.76 L (4.30-5.90) m/uL Hgb 11.1 L (13.0-17.5) gm/dL Hct 40.6 (39.0-53.0) % MCV 108.1 H D (80.0-100.0) fL MCH 29.5 (25.0-35.0) pg MCHC 27.3 L (31.0-37.0) g/dL RDW 15.5 (11.5-15.5) % Plt Count 585 H (150-450) k/uL MPV 8.1 Neutrophils % (Manual) 70 % Band Neuts % (Manual) 3 % Lymphocytes % (Manual) 16 % Monocytes % (Manual) 5 % Eosinophils % (Manual) 1 % Metamyelocytes % 5 % Myelocytes % 2 % Neutrophils # (Manual) 27.00 H (1.3-7.7) k/uL Lymphocytes # (Manual) 5.94 H (1.0-4.8) k/uL Monocytes # (Manual) 1.86 H (0-1.0) k/uL Eosinophils # (Manual) 0.37 (0-0.7) k/uL Metamyelocytes # (Man) 1.86 H (0) k/uL Myelocytes # (Manual) 0.74 H (0) k/uL Nucleated RBCs 0 (0-0) /100 WBC Manual Slide Review Performed Hypochromasia Marked Poikilocytosis (manual Present Macrocytosis Marked A Crenated Cell Present VBG pH (7.31-7.41) VBG pCO2 (37-51) mmHg VBG HCO3 (24-28) mmol/L Sodium 138 (137-145) mmol/L Potassium 6.0 H (3.5-5.1) mmol/L Chloride 96 L (98-107) mmol/L Carbon Dioxide <5 L* (22-30) mmol/L Anion Gap mmol/L BUN 34 H (9-20) mg/dL Creatinine 2.32 H (0.66-1.25) mg/dL Est GFR (CKD-EPI)AfAm 44 (>60 ml/min/1.73 sqM) Est GFR (CKD-EPI)NonAf 38 (>60 ml/min/1.73 sqM) Glucose 1077 H* (74-99) mg/dL POC Glucose (mg/dL) >600 H (70-110) mg/dL POC Glu [employer] ID Mila Wong Acetone, Qual Positive (Negative) 05/19/23 05/19/23 05/19/23 Range/Units 07:50 09:00 10:51 WBC (3.8-10.6) k/uL RBC (4.30-5.90) m/uL Hgb (13.0-17.5) gm/dL Hct (39.0-53.0) % MCV (80.0-100.0) fL MCH (25.0-35.0) pg MCHC (31.0-37.0) g/dL RDW (11.5-15.5) % Plt Count (150-450) k/uL MPV Neutrophils % (Manual) % Band Neuts % (Manual) % Lymphocytes % (Manual) % Monocytes % (Manual) % Eosinophils % (Manual) % Metamyelocytes % % Myelocytes % % Neutrophils # (Manual) (1.3-7.7) k/uL Lymphocytes # (Manual) (1.0-4.8) k/uL Monocytes # (Manual) (0-1.0) k/uL Eosinophils # (Manual) (0-0.7) k/uL Metamyelocytes # (Man) (0) k/uL Myelocytes # (Manual) (0) k/uL Nucleated RBCs (0-0) /100 WBC Manual Slide Review Hypochromasia Poikilocytosis (manual Macrocytosis Crenated Cell VBG pH 6.80 L* (7.31-7.41) VBG pCO2 14 L* (37-51) mmHg VBG HCO3 2 L* (24-28) mmol/L Sodium (137-145) mmol/L Potassium (3.5-5.1) mmol/L Chloride (98-107) mmol/L Carbon Dioxide (22-30) mmol/L Anion Gap mmol/L BUN (9-20) mg/dL Creatinine (0.66-1.25) mg/dL Est GFR (CKD-EPI)AfAm (>60 ml/min/1.73 sqM) Est GFR (CKD-EPI)NonAf (>60 ml/min/1.73 sqM) Glucose (74-99) mg/dL POC Glucose (mg/dL) >600 H >600 H (70-110) mg/dL POC Glu [employer] ID Mila Wong Meagan Acetone, Qual (Negative) Critical Care Time Critical Care Time: Yes Total Critical Care Time: 35 Disposition Clinical Impression: Diabetic ketoacidosis Disposition: ADMITTED IP TO THIS [facility] Referrals: Brown Valenzuela MD [Primary Care Provider] - 1-2 days Time of Disposition: 11:06
[2023-05-19 07:43] LABS: Glucose,Whole Blood >600 mg/dL (70-110)
[2023-05-19 08:06] LABS: African American GFR (CKD) 44 (>60 ml/min/1.73 sqM); Blood Urea Nitrogen 34 mg/dL (9-20); Chloride 96 mmol/L (98-107); Non-African American GFR(CKD) 38 (>60 ml/min/1.73 sqM); Sodium 138 mmol/L (137-145)
[2023-05-19 08:15] LABS: HCT 40.6 % (39.0-53.0); HGB 11.1 gm/dL (13.0-17.5); Hypochromasia Marked; MCH 29.5 pg (25.0-35.0); MCHC 27.3 g/dL (31.0-37.0); Macrocytosis Marked; Mean Platelet Volume 8.1; Platelet Count 585 k/uL (150-450); RBC 3.76 m/uL (4.30-5.90); RDW 15.5 % (11.5-15.5); WBC 37.1 k/uL (3.8-10.6)
[2023-05-19 08:20] LABS: VBG PH 6.8 (7.31-7.41)
[2023-05-19 08:20] LABS: Carbon Dioxide <5 mmol/L (22-30); Glucose 1077 mg/dL (74-99)
[2023-05-19] MEDS: INSULIN REGULAR 100 UNIT in SODIUM CHLORIDE 0.9% 100 ML IV SCH ×2 (08:25→20:55)
[2023-05-19 08:26] LABS: MCV 108.1 fL (80.0-100.0)
[2023-05-19] MEDS: SODIUM CHLORIDE 0.9% 1,000 ML IV SCH ×2 (08:27→12:13)
[2023-05-19 08:46] LABS: Band Neutrophils % 3 %; Eosinophils # (M) 0.37 k/uL (0-0.7); Lymphocytes # (M) 5.94 k/uL (1.0-4.8); Metamyelocytes # (M) 1.86 k/uL (0); Metamyelocytes % 5 %; Monocytes # (M) 1.86 k/uL (0-1.0); Myelocytes # (M) 0.74 k/uL (0); Myelocytes % 2 %; Neutrophils % (M) 70 %; Nucleated Red Blood Cells 0 /100 WBC (0-0); Total Cells Counted 200
[2023-05-19 08:47] LABS: Crenated RBC Present; Poikilocytosis (M) Present
[2023-05-19 09:01] LABS: Glucose,Whole Blood >600 mg/dL (70-110)
[2023-05-19 10:53] LABS: Glucose,Whole Blood >600 mg/dL (70-110)
[2023-05-19 11:55] LABS: VBG PH 7.05 (7.31-7.41)
[2023-05-19 12:01] LABS: ALT 22 U/L (4-49); AST 24 U/L (17-59); African American GFR (CKD) 74 (>60 ml/min/1.73 sqM); Alkaline Phosphatase 90 U/L (38-126); Blood Urea Nitrogen 33 mg/dL (9-20); Calcium 8.2 mg/dL (8.4-10.2); Chloride 111 mmol/L (98-107); Non-African American GFR(CKD) 64 (>60 ml/min/1.73 sqM); Potassium 5.5 mmol/L (3.5-5.1); Sodium 145 mmol/L (137-145); Total Bilirubin 0.3 mg/dL (0.2-1.3); Total Protein 6.2 g/dL (6.3-8.2)
[2023-05-19 12:04] LABS: HCT 36.7 % (39.0-53.0); HGB 10.7 gm/dL (13.0-17.5); Hypochromasia Marked; MCH 28.8 pg (25.0-35.0); MCHC 29.2 g/dL (31.0-37.0); Macrocytosis Slight; Platelet Count 414 k/uL (150-450); RBC 3.72 m/uL (4.30-5.90); RDW 15.5 % (11.5-15.5); WBC 41.8 k/uL (3.8-10.6)
[2023-05-19 12:09] LABS: Glucose,Whole Blood 534 mg/dL (70-110)
[2023-05-19 12:20] LABS: MCV 98.6 fL (80.0-100.0)
[2023-05-19 12:28] LABS: Carbon Dioxide <5 mmol/L (22-30); Glucose 668 mg/dL (74-99)
[2023-05-19 13:00] LABS: Glucose,Whole Blood 454 mg/dL (70-110)
[2023-05-19 13:58] LABS: Glucose,Whole Blood 369 mg/dL (70-110)
[2023-05-19 15:13] LABS: Glucose,Whole Blood 301 mg/dL (70-110)
[2023-05-19 16:11] LABS: Glucose,Whole Blood 181 mg/dL (70-110)
[2023-05-19] MEDS: D5-0.45% NACL WITH KCL 20MEQ/L 1,000 ML IV SCH ×2 (16:11→23:30)
[2023-05-19 16:59] LABS: Glucose,Whole Blood 175 mg/dL (70-110)
[2023-05-19 17:11] LABS: Phosphorus 1.1 mg/dL (2.5-4.5); Potassium 4.4 mmol/L (3.5-5.1)
[2023-05-19] MEDS ORDERED: Phosphorus Replacement Protoco 1 EACH MISC MISCELLANE PRN (17:21)
[2023-05-19] MEDS: ONDANSETRON 4 MG/2 ML VIAL IVP PRN (17:49)
[2023-05-19 17:55] LABS: Glucose,Whole Blood 160 mg/dL (70-110)
[2023-05-19] MEDS ORDERED: SODIUM PHOSPHATE 30 MMOL in DEXTROSE 5% IN WATER 250 ML IVPB ONE ×2 (18:00)
[2023-05-19 19:02] LABS: Glucose,Whole Blood 155 mg/dL (70-110)
[2023-05-19 20:05] LABS: Glucose,Whole Blood 151 mg/dL (70-110)
[2023-05-19] MEDS ORDERED: NALOXONE 0.4 MG/ML 1 ML VIAL IV PRN (20:09)
[2023-05-19 20:48] LABS: Potassium 4.2 mmol/L (3.5-5.1)
[2023-05-19 20:54] LABS: Glucose,Whole Blood 150 mg/dL (70-110)
[2023-05-19] MEDS: INSULIN DETEMIR (LEVEMIR) 100 UNIT/ML SYR SQ SCH (20:58)
--- NOTE | 2023-05-19 21:47 | HP ---
HISTORY AND PHYSICAL CHIEF COMPLAINT: Coma and DKA. HISTORY OF PRESENT ILLNESS: This is another admission for this 27-year-old white male, who comes into the hospital almost twice a week now with DKA. He states that he takes his insulin, but he does not. He came into the emergency room comatose this time with a blood sugar 1077. [place] [address] with a hemoglobin of 10.7. PH was 6.8 with a bicarb of 13. REVIEW OF SYSTEMS: Unobtainable. Past medical history, family history, and personal and social histories are otherwise unchanged. PHYSICAL EXAMINATION: VITAL SIGNS: Blood pressure is 91/50 with a pulse of 120 and regular. He is comatose. He was dehydrated. HEAD, EARS, EYES, NOSE AND MOUTH: Normal. CHEST: Clear. CARDIAC: Demonstrated sinus tachycardia. ABDOMEN: Flat and soft. EXTREMITIES: Normal. He was comatose. IMPRESSION: He was admitted to the hospital with diagnoses of: 1. Diabetic ketoacidosis. 2. Metabolic acidosis. 3. Hypotension. 4. Leukocytosis. 5. Anemia. PLAN: ICU management for his DKA. MMODL / IJN: [id number] /
[2023-05-19 23:14] LABS: Glucose,Whole Blood 119 mg/dL (70-110)
[2023-05-20 00:02] LABS: Potassium 3.7 mmol/L (3.5-5.1)
[2023-05-20 00:12] LABS: Glucose,Whole Blood 102 mg/dL (70-110)
[2023-05-20 01:13] LABS: Glucose,Whole Blood 112 mg/dL (70-110)
[2023-05-20 02:06] LABS: Glucose,Whole Blood 139 mg/dL (70-110)
[2023-05-20] MEDS: ONDANSETRON 4 MG/2 ML VIAL IVP PRN ×2 (02:16→22:26)
[2023-05-20 03:13] LABS: Glucose,Whole Blood 176 mg/dL (70-110)
[2023-05-20 04:53] LABS: Glucose,Whole Blood 231 mg/dL (70-110)
[2023-05-20 05:10] LABS: Anisocytosis Slight; Basophils % (A) 0 %; Eosinophils % (A) 0 %; HCT 31.9 % (39.0-53.0); HGB 10.3 gm/dL (13.0-17.5); Hypochromasia Slight; Lymphocytes # (A) 1.6 k/uL (1.0-4.8); Lymphocytes % (A) 7 %; MCH 28.6 pg (25.0-35.0); MCHC 32.3 g/dL (31.0-37.0); Mean Platelet Volume 7.2; Monocytes # (A) 1.4 k/uL (0-1.0); Monocytes % (A) 6 %; Neutrophils # (A) 19.4 k/uL (1.3-7.7); Neutrophils % (A) 86 %; Platelet Count 429 k/uL (150-450); RDW 16.5 % (11.5-15.5); WBC 22.7 k/uL (3.8-10.6)
[2023-05-20 05:24] LABS: African American GFR (CKD) >90 (>60 ml/min/1.73 sqM); Anion Gap 18 mmol/L; Blood Urea Nitrogen 24 mg/dL (9-20); Carbon Dioxide 14 mmol/L (22-30); Chloride 115 mmol/L (98-107); Glucose 198 mg/dL (74-99); Non-African American GFR(CKD) >90 (>60 ml/min/1.73 sqM); Sodium 147 mmol/L (137-145)
[2023-05-20 05:57] LABS: MCV 88.5 fL (80.0-100.0)
[2023-05-20] MEDS: INSULIN ASPART (NovoLOG) 100 UNIT/ML VIAL SQ SCH ×3 (06:49→17:17)
[2023-05-20 07:01] LABS: Glucose,Whole Blood 337 mg/dL (70-110)
[2023-05-20 08:10] LABS: Glucose,Whole Blood 304 mg/dL (70-110)
[2023-05-20] MEDS: D5-0.45% NACL WITH KCL 20MEQ/L 1,000 ML IV SCH ×3 (08:37→18:48)
[2023-05-20 09:05] LABS: Glucose,Whole Blood 322 mg/dL (70-110)
[2023-05-20 09:56] LABS: Glucose,Whole Blood 282 mg/dL (70-110)
--- NOTE | 2023-05-20 10:27 | P.CNPUL ---
History of Present Illness Consult date: 05/20/23 Chief complaint: DKA, altered mentation History of present illness: 27-year-old male patient, coming in for DKA. He had altered mentation at home and he was not acting coherent. He was hypotensive at the time of arrival and he was in DKA. The patient was seen in emergency. The patient was given bolus of fluid a total of 3 L and he was started on insulin drip based on the DKA protocol. His initial serum bicarbonate was less than 5, BUN was 34 with a creatinine of 2.3, white cell count was at 37.1 and a potassium level was at 6. His blood sugar was above 600. He is currently on insulin drip running at 8.8 units an hour. He is also on IV fluids at D5 half-normal saline at the rate of 150 mL an hour along with 20 mEq of potassium. Most recent electrolytes show a bicarb level of 14 with a gap of 18 which is improving. Sodium level is at 147 which is improved. The white cell count is down to 22.7 with a hemoglobin of 10.3. Most recent blood sugar is down to 282. He is on room air oxygen. He is communicating. No chest x-ray. EKG showed hyperacute T waves probably related to his hyperkalemia. Normal cardiac rhythm. Review of Systems CONSTITUTIONAL: Denies any recent significant weight loss or weight gain. EYES: Denies change in vision. EARS, NOSE, MOUTH, THROAT: Denies headaches, denies sore throat. CARDIOVASCULAR: Denies chest pain, palpitations or syncopal episodes. RESPIRATORY: Denies shortness of breath, cough, congestion or hemoptysis. GASTROINTESTINAL: Denies change in appetite, abdominal pain, or diarrhea. Admits nausea and vomiting. Denies hematemesis GENITOURINARY: Denies hematuria, denies infections. MUSKULOSKELETAL: Denies pain, denies swelling. INTEGUMENTARY: Denies rash, denies eczema. NEUROLOGICAL: Denies recent memory loss, no recent seizure activity. PSYCHIATRIC: Denies anxiety, denies depression. HEMATOLOGIC/LYMPHATIC: Denies anemia, denies enlarged lymph node Past Medical History Past Medical History: Asthma, Diabetes Mellitus, Neurologic Disorder, Skin Disorder Additional Past Medical History / Comment(s): IDDM type I, neuropathy bilateral feet, DKA, eczema. History of Any Multi-Drug Resistant Organisms: None Reported Past Surgical History: Adenoidectomy Additional Past Surgical History / Comment(s): 2002 Recent EGD- gastritis Past Anesthesia/Blood Transfusion Reactions: No Reported Reaction Past Psychological History: Anxiety, Depression Additional Psychological History / Comment(s): Pt has had multiple psychiatric admissions for depression/suicide attempts. Smoking Status: Former smoker Past Alcohol Use History: None Reported Additional Past Alcohol Use History / Comment(s): Pt started smoking cigarettes as a teen and quit "long ago." Pt started occasional vaping in 2009. Past Drug Use History: Marijuana Additional Drug Use History / Comment(s): Occasional - Past Family History Mother Family Medical History: CVA/TIA Additional Family Medical History / Comment(s): TIA Father Family Medical History: Hyperlipidemia, Hypertension Additional Family Medical History / Comment(s): . Medications and Allergies Home Medications Medication Instructions Recorded Confirmed Type Insulin Detemir (Levemir) [Levemir] 30 unit SQ HS 03/07/23 05/19/23 History Ergocalciferol [Vitamin D2 (1250 1,250 mcg PO Q30D 04/29/23 05/19/23 History Mcg = [id number] Iu)] Famotidine [Pepcid] 20 mg PO BID 04/29/23 05/19/23 History Gabapentin 600 mg PO TID 04/29/23 05/19/23 History Insulin Lispro [Insulin Lispro 7 units SQ AC-TID 04/29/23 05/19/23 History Kwikpen U-100] Losartan Potassium 50 mg PO DAILY 04/29/23 05/19/23 History Mirtazapine 7.5 mg PO HS 04/29/23 05/19/23 History Allergies Allergy/AdvReac Type Severity Reaction Status Date / Time No Known Allergies Allergy Verified 05/19/23 12:00 Physical Exam Vitals: Vital Signs Temp Pulse Resp BP Pulse Ox 05/20/23 10:00 118 H 12 126/95 99 05/20/23 09:00 101 H 12 134/94 99 05/20/23 08:00 98.4 F 108 H 12 97 05/20/23 07:00 115 H 14 99 05/20/23 06:00 122 H 20 99 05/20/23 05:00 120 H 15 99 05/20/23 04:00 97.9 F 109 H 18 99 05/20/23 03:00 110 H 16 98 05/20/23 02:00 111 H 16 121/79 97 05/20/23 01:00 105 H 15 98 05/20/23 00:00 98.0 F 106 H 17 121/79 99 05/19/23 23:00 111 H 15 98 05/19/23 22:00 110 H 14 115/77 97 05/19/23 21:00 122 H 22 115/77 96 05/19/23 20:00 97.4 F L 120 H 20 119/76 97 05/19/23 19:00 116 H 23 110/77 98 05/19/23 18:00 110 H 16 109/71 96 05/19/23 17:00 112 H 13 102/54 98 05/19/23 16:00 97.9 F 116 H 16 102/56 99 05/19/23 15:00 114 H 15 91/50 99 05/19/23 14:00 97.4 F L 121 H 20 108/69 99 05/19/23 13:00 95.4 F L 116 H 40 H 108/69 99 05/19/23 12:57 99 05/19/23 12:55 95.9 F L 118 H 24 93/55 99 05/19/23 12:07 95.0 F L 117 H 22 112/70 99 05/19/23 11:00 92.3 F L 106 H 22 109/68 100 05/19/23 10:30 90.9 F L 104 H 22 93/69 99 Intake and Output 05/19/23 05/20/23 05/20/23 22:59 06:59 14:59 Intake Total 0752.999 9421.520 856.693 Output Total 825 300 950 Balance 187.771 7234.520 -93.307 Intake: IV 1640 1360 850 0.9 340 160 100 D5-0.45% NaCl with KCl 450 1200 750 20Meq/l 1,000 ml @ 150 mls/hr IV .Q6H40M [facility] Rx# :[id number] Insulin Regular 100 unit 600 In Sodium Chloride 0.9% 100 ml @ 0.1 UNITS/KG/HR 6.717 mls/hr IV .Q15H3M [facility] Rx#:[id number] Sodium Phosphate 30 mmol 250 In Dextrose 5% in Water 250 ml @ 65 mls/hr IVPB ONCE ONE Rx#:[id number] Intake, IV Titration 83.907 13.520 6.693 Amount Insulin Regular 100 unit 83.907 13.520 6.693 In Sodium Chloride 0.9% 100 ml @ 0.1 UNITS/KG/HR 6.717 mls/hr IV .Q15H3M [facility] Rx#:[id number] Output: Urine 725 300 950 Emesis 100 Other: Voiding Method Indwelling Catheter Urinal Urinal # Voids 1 1 Weight 68.2 kg GENERAL EXAM: Alert, disheveled 27-year-old white male, comfortable in no apparent distress. Cardiac and communicating. Looks still sleepy. HEAD: Normocephalic and atraumatic EYES: Normal reaction of pupils, equal size. NOSE: Clear with pink turbinates. THROAT: No erythema or exudates. Poor dentition NECK: No masses, no JVD. CHEST: No chest wall deformity. LUNGS: Equal air entry with no crackles, wheeze, rhonchi or dullness. On room air. No conversational dyspnea or accessory muscle use.. CVS: S1 and S2 normal with no audible murmur, regular rhythm. No extra heart sounds ABDOMEN: No hepatosplenomegaly, active bowel sounds, no guarding or rigidity. SPINE: No scoliosis or deformity SKIN: No rashes CENTRAL NERVOUS SYSTEM: No focal deficits, tone is normal in all 4 extremities. EXTREMITIES: There is no peripheral edema, clubbing, or cyanosis. Peripheral pulses are intact. Results - Laboratory Findings CBC and BMP: 05/20/23 04:16 05/20/23 04:16 Abnormal lab findings: Abnormal Labs 05/19/23 05/19/23 05/19/23 07:42 07:43 07:43 WBC 37.1 H RBC 3.76 L Hgb 11.1 L Hct MCV 108.1 H D MCHC 27.3 L RDW Plt Count 585 H Neutrophils # Neutrophils # (Manual) 27.00 H Lymphocytes # (Manual) 5.94 H Monocytes # Monocytes # (Manual) 1.86 H Metamyelocytes # (Man) 1.86 H Myelocytes # (Manual) 0.74 H Macrocytosis Marked A VBG pH VBG pCO2 VBG HCO3 Sodium Potassium 6.0 H Chloride 96 L Carbon Dioxide <5 L* BUN 34 H Creatinine 2.32 H Glucose 1077 H* POC Glucose (mg/dL) >600 H Calcium Phosphorus Total Protein 05/19/23 05/19/23 05/19/23 07:50 09:00 10:51 WBC RBC Hgb Hct MCV MCHC RDW Plt Count Neutrophils # Neutrophils # (Manual) Lymphocytes # (Manual) Monocytes # Monocytes # (Manual) Metamyelocytes # (Man) Myelocytes # (Manual) Macrocytosis VBG pH 6.80 L* VBG pCO2 14 L* VBG HCO3 2 L* Sodium Potassium Chloride Carbon Dioxide BUN Creatinine Glucose POC Glucose (mg/dL) >600 H >600 H Calcium Phosphorus Total Protein 05/19/23 05/19/23 05/19/23 11:24 11:25 11:25 WBC 41.8 H RBC 3.72 L Hgb 10.7 L Hct 36.7 L MCV MCHC 29.2 L RDW Plt Count Neutrophils # Neutrophils # (Manual) Lymphocytes # (Manual) Monocytes # Monocytes # (Manual) Metamyelocytes # (Man) Myelocytes # (Manual) Macrocytosis VBG pH VBG pCO2 VBG HCO3 Sodium Potassium 5.5 H Chloride 111 H Carbon Dioxide <5 L* BUN 33 H Creatinine 1.51 H Glucose 668 H* POC Glucose (mg/dL) Calcium 8.2 L Phosphorus 6.5 H Total Protein 6.2 L 05/19/23 05/19/23 05/19/23 11:25 12:06 12:59 WBC RBC Hgb Hct MCV MCHC RDW Plt Count Neutrophils # Neutrophils # (Manual) Lymphocytes # (Manual) Monocytes # Monocytes # (Manual) Metamyelocytes # (Man) Myelocytes # (Manual) Macrocytosis VBG pH 7.05 L* VBG pCO2 13 L* VBG HCO3 3 L* Sodium Potassium Chloride Carbon Dioxide BUN Creatinine Glucose POC Glucose (mg/dL) 534 H 454 H Calcium Phosphorus Total Protein 05/19/23 05/19/23 05/19/23 13:57 15:11 16:09 WBC RBC Hgb Hct MCV MCHC RDW Plt Count Neutrophils # Neutrophils # (Manual) Lymphocytes # (Manual) Monocytes # Monocytes # (Manual) Metamyelocytes # (Man) Myelocytes # (Manual) Macrocytosis VBG pH VBG pCO2 VBG HCO3 Sodium Potassium Chloride Carbon Dioxide BUN Creatinine Glucose POC Glucose (mg/dL) 369 H 301 H 181 H Calcium Phosphorus Total Protein 05/19/23 05/19/23 05/19/23 16:31 16:58 17:53 WBC RBC Hgb Hct MCV MCHC RDW Plt Count Neutrophils # Neutrophils # (Manual) Lymphocytes # (Manual) Monocytes # Monocytes # (Manual) Metamyelocytes # (Man) Myelocytes # (Manual) Macrocytosis VBG pH VBG pCO2 VBG HCO3 Sodium 150 H Potassium Chloride 120 H Carbon Dioxide 9 L* BUN Creatinine Glucose POC Glucose (mg/dL) 175 H 160 H Calcium Phosphorus 1.1 L Total Protein 05/19/23 05/19/23 05/19/23 19:00 20:03 20:04 WBC RBC Hgb Hct MCV MCHC RDW Plt Count Neutrophils # Neutrophils # (Manual) Lymphocytes # (Manual) Monocytes # Monocytes # (Manual) Metamyelocytes # (Man) Myelocytes # (Manual) Macrocytosis VBG pH VBG pCO2 VBG HCO3 Sodium 147 H Potassium Chloride 120 H Carbon Dioxide 12 L BUN Creatinine Glucose POC Glucose (mg/dL) 155 H 151 H Calcium Phosphorus Total Protein 05/19/23 05/19/23 05/19/23 20:53 23:12 23:39 WBC RBC Hgb Hct MCV MCHC RDW Plt Count Neutrophils # Neutrophils # (Manual) Lymphocytes # (Manual) Monocytes # Monocytes # (Manual) Metamyelocytes # (Man) Myelocytes # (Manual) Macrocytosis VBG pH VBG pCO2 VBG HCO3 Sodium 148 H Potassium Chloride 118 H Carbon Dioxide 16 L BUN Creatinine Glucose POC Glucose (mg/dL) 150 H 119 H Calcium Phosphorus Total Protein 05/20/23 05/20/23 05/20/23 01:12 02:04 03:11 WBC RBC Hgb Hct MCV MCHC RDW Plt Count Neutrophils # Neutrophils # (Manual) Lymphocytes # (Manual) Monocytes # Monocytes # (Manual) Metamyelocytes # (Man) Myelocytes # (Manual) Macrocytosis VBG pH VBG pCO2 VBG HCO3 Sodium Potassium Chloride Carbon Dioxide BUN Creatinine Glucose POC Glucose (mg/dL) 112 H 139 H 176 H Calcium Phosphorus Total Protein 05/20/23 05/20/23 05/20/23 04:16 04:16 04:51 WBC 22.7 H RBC 3.60 L Hgb 10.3 L Hct 31.9 L MCV MCHC RDW 16.5 H Plt Count Neutrophils # 19.4 H Neutrophils # (Manual) Lymphocytes # (Manual) Monocytes # 1.4 H Monocytes # (Manual) Metamyelocytes # (Man) Myelocytes # (Manual) Macrocytosis VBG pH VBG pCO2 VBG HCO3 Sodium 147 H Potassium Chloride 115 H Carbon Dioxide 14 L BUN 24 H Creatinine Glucose 198 H POC Glucose (mg/dL) 231 H Calcium 8.0 L Phosphorus Total Protein 05/20/23 05/20/23 05/20/23 06:59 08:07 09:03 WBC RBC Hgb Hct MCV MCHC RDW Plt Count Neutrophils # Neutrophils # (Manual) Lymphocytes # (Manual) Monocytes # Monocytes # (Manual) Metamyelocytes # (Man) Myelocytes # (Manual) Macrocytosis VBG pH VBG pCO2 VBG HCO3 Sodium Potassium Chloride Carbon Dioxide BUN Creatinine Glucose POC Glucose (mg/dL) 337 H 304 H 322 H Calcium Phosphorus Total Protein 05/20/23 09:54 WBC RBC Hgb Hct MCV MCHC RDW Plt Count Neutrophils # Neutrophils # (Manual) Lymphocytes # (Manual) Monocytes # Monocytes # (Manual) Metamyelocytes # (Man) Myelocytes # (Manual) Macrocytosis VBG pH VBG pCO2 VBG HCO3 Sodium Potassium Chloride Carbon Dioxide BUN Creatinine Glucose POC Glucose (mg/dL) 282 H Calcium Phosphorus Total Protein Assessment and Plan Plan: Acute diabetic ketoacidosis, likely secondary to medication noncompliance. Patient has had numerous episodes of DKA, recently admitted on 05/15/2023 for the same, he is being treated based on the DKA protocol and is currently on insulin drip, resuscitated with IV fluids Severe anion gap metabolic acidosis, secondary to above and lactic acidosis, improving Tachycardia, likely sinus Severe dehydration, improving Acute kidney injury, prerenal, secondary to above Severe hyperkalemia, improving Hyperphosphatemia Type 1 diabetes mellitus, with poor medication compliance. Acute leukocytosis, likely reactive to DKA Diabetic neuropathy History of major depression Chronic marijuana use Chronic ongoing nicotine dependence Plan: insulin drip D5 half-normal infusion NONCOMPLIANT to Levemir insulin 30 units and NovoLog 7 units with meals (home dose) Monitor electrolytes every 4 hours Hourly blood sugar management
[2023-05-20 11:05] VITALS: BMI 18.8
[2023-05-20 11:14] LABS: Glucose,Whole Blood 241 mg/dL (70-110)
[2023-05-20 12:04] LABS: Glucose,Whole Blood 255 mg/dL (70-110)
[2023-05-20 13:09] LABS: Glucose,Whole Blood 218 mg/dL (70-110)
[2023-05-20 14:26] LABS: Glucose,Whole Blood 169 mg/dL (70-110)
[2023-05-20 15:03] LABS: African American GFR (CKD) >90 (>60 ml/min/1.73 sqM); Anion Gap 11 mmol/L; Blood Urea Nitrogen 15 mg/dL (9-20); Calcium 8.4 mg/dL (8.4-10.2); Carbon Dioxide 19 mmol/L (22-30); Chloride 113 mmol/L (98-107); Glucose 190 mg/dL (74-99); Non-African American GFR(CKD) >90 (>60 ml/min/1.73 sqM); Potassium 3.9 mmol/L (3.5-5.1); Sodium 143 mmol/L (137-145)
[2023-05-20 15:42] LABS: Glucose,Whole Blood 162 mg/dL (70-110)
[2023-05-20 16:26] LABS: Glucose,Whole Blood 146 mg/dL (70-110)
[2023-05-20] MEDS ORDERED: POTASSIUM BICARBONATE/CIT AC 20 MEQ TABLET.EFF NG-TUBE SCH (17:00)
[2023-05-20] MEDS: INSULIN REGULAR 100 UNIT in SODIUM CHLORIDE 0.9% 100 ML IV SCH (17:16)
[2023-05-20 17:20] LABS: Glucose,Whole Blood 124 mg/dL (70-110)
[2023-05-20 18:01] LABS: Glucose,Whole Blood 121 mg/dL (70-110)
[2023-05-20 18:29] LABS: African American GFR (CKD) >90 (>60 ml/min/1.73 sqM); Anion Gap 9 mmol/L; Blood Urea Nitrogen 14 mg/dL (9-20); Calcium 8.4 mg/dL (8.4-10.2); Carbon Dioxide 21 mmol/L (22-30); Chloride 110 mmol/L (98-107); Glucose 131 mg/dL (74-99); Non-African American GFR(CKD) >90 (>60 ml/min/1.73 sqM); Potassium 4.1 mmol/L (3.5-5.1); Sodium 140 mmol/L (137-145)
[2023-05-20 20:02] LABS: Glucose,Whole Blood 259 mg/dL (70-110)
[2023-05-20] MEDS: INSULIN DETEMIR (LEVEMIR) 100 UNIT/ML SYR SQ SCH (20:08)
[2023-05-21 01:59] LABS: Anisocytosis Slight; Basophils % (A) 0 %; Eosinophils # (A) 0.1 k/uL (0-0.7); Eosinophils % (A) 1 %; HCT 30.2 % (39.0-53.0); HGB 10.1 gm/dL (13.0-17.5); Lymphocytes # (A) 2.5 k/uL (1.0-4.8); Lymphocytes % (A) 17 %; MCHC 33.3 g/dL (31.0-37.0); MCV 87.1 fL (80.0-100.0); Mean Platelet Volume 7.1; Monocytes # (A) 0.6 k/uL (0-1.0); Monocytes % (A) 4 %; Neutrophils # (A) 11.6 k/uL (1.3-7.7); Neutrophils % (A) 77 %; Platelet Count 362 k/uL (150-450); RBC 3.47 m/uL (4.30-5.90); RDW 16.6 % (11.5-15.5); WBC 15.1 k/uL (3.8-10.6)
[2023-05-21 02:09] LABS: Potassium 3.5 mmol/L (3.5-5.1)
[2023-05-21 02:10] LABS: African American GFR (CKD) >90 (>60 ml/min/1.73 sqM); Anion Gap 8 mmol/L; Blood Urea Nitrogen 13 mg/dL (9-20); Calcium 8.2 mg/dL (8.4-10.2); Carbon Dioxide 24 mmol/L (22-30); Chloride 102 mmol/L (98-107); Glucose 108 mg/dL (74-99); Non-African American GFR(CKD) >90 (>60 ml/min/1.73 sqM); Potassium 3.6 mmol/L (3.5-5.1); Sodium 134 mmol/L (137-145)
--- NOTE | 2023-05-21 02:25 | PN ---
PROGRESS NOTE DATE OF SERVICE: 05/20/2023 CHIEF COMPLAINT: Semicoma and DKA. HISTORY OF PRESENT ILLNESS: This gentleman is still extremely lethargic. Numbers are improved slightly. Blood sugar is down to 282. He is still lethargic. He remains nauseated. PHYSICAL EXAMINATION: VITAL SIGNS: Blood pressure is 126/95 with a pulse of 118. CHEST: Clear. CARDIAC: Normal. ABDOMEN: Soft, nontender. IMPRESSION: 1. Diabetic ketoacidosis. 2. Metabolic acidosis. 3. Hypertension. PLAN: Continue with IV fluids and management of his diabetes. MMODL / IJN: [id number] /
[2023-05-21 02:33] LABS: Glucose,Whole Blood 77 mg/dL (70-110)
[2023-05-21] MEDS: POTASSIUM BICARBONATE/CIT AC 20 MEQ TABLET.EFF NG-TUBE SCH ×2 (02:42→04:19)
[2023-05-21] MEDS ORDERED: POTASSIUM CHLORIDE ER 20 MEQ TAB.ER PO SCH (03:00)
[2023-05-21 06:55] LABS: Glucose,Whole Blood 88 mg/dL (70-110)
[2023-05-21] MEDS: INSULIN ASPART (NovoLOG) 100 UNIT/ML VIAL SQ SCH ×4 (07:24→13:12)
[2023-05-21 08:30] LABS: Potassium 3.7 mmol/L (3.5-5.1)
[2023-05-21 08:50] VITALS: BP 129/88; PULSE 83; RESP 14; TEMP 98.8
[2023-05-21 08:56] LABS: Glucose,Whole Blood 112 mg/dL (70-110)
--- NOTE | 2023-05-21 09:40 | P.PN ---
Subjective Progress Note Date: 05/21/23 27-year-old male patient, coming in for DKA. He had altered mentation at home and he was not acting coherent. He was hypotensive at the time of arrival and he was in DKA. The patient was seen in emergency. The patient was given bolus of fluid a total of 3 L and he was started on insulin drip based on the DKA protocol. His initial serum bicarbonate was less than 5, BUN was 34 with a creatinine of 2.3, white cell count was at 37.1 and a potassium level was at 6. His blood sugar was above 600. He is currently on insulin drip running at 8.8 units an hour. He is also on IV fluids at D5 half-normal saline at the rate of 150 mL an hour along with 20 mEq of potassium. Most recent electrolytes show a bicarb level of 14 with a gap of 18 which is improving. Sodium level is at 147 which is improved. The white cell count is down to 22.7 with a hemoglobin of 10.3. Most recent blood sugar is down to 282. He is on room air oxygen. He is communicating. No chest x-ray. EKG showed hyperacute T waves probably related to his hyperkalemia. Normal cardiac rhythm. His evaluation of 05/21/2023, the patient is off the insulin drip and the patient was transitioned to long-acting insulin with Levemir. No significant events overnight. The patient will be transferred to a mechanical floor.The e lectrolytes from today shows a sodium level of 133, potassium level of 3.7, current 100 with a bicarb of 26. Glucose is 112. The patient is currently on Levemir insulin 30 units at bedtime and 7 units of NovoLog with meals and a slight scale coverage. IV fluids are D5 half-normal saline at rate of 50 mL an hour. Hemodynamically stable. Patient is currently on room air oxygen. No issues with hypotension. Slightly less tachycardic compared to yesterday. Objective - Vital Signs Vital signs: Vital Signs Temp 98.8 F 05/21/23 08:30 Pulse 83 05/21/23 08:30 Resp 14 05/21/23 08:30 BP 129/88 05/21/23 08:30 Pulse Ox 98 05/21/23 08:30 FiO2 Intake & Output 05/20/23 05/21/23 05/21/23 18:59 06:59 18:59 Intake Total 2088.396 150 Output Total 1650 500 Balance 438.396 -350 Weight 68.2 kg 72.7 kg Intake: IV 0 150 0.9 100 D5-0.45% NaCl with KCl 1950 150 20Meq/l 1,000 ml @ 50 mls /hr IV .Q20H [facility] Rx#: [id number] Intake, IV Titration 38.396 Amount Insulin Regular 100 unit 38.396 In Sodium Chloride 0.9% 100 ml @ 0.1 UNITS/KG/HR 6.717 mls/hr IV .Q15H3M [facility] Rx#:[id number] Output: Urine 1650 500 Other: Voiding Method Urinal Urinal # Voids 1 1 - Exam GENERAL EXAM: Alert, 27-year-old white male, not in acute distress, currently on room air oxygen HEAD: Normocephalic and atraumatic EYES: Normal reaction of pupils, equal size. NOSE: Clear with pink turbinates. THROAT: No erythema or exudates. Poor dentition NECK: No masses, no JVD. CHEST: No chest wall deformity. LUNGS: Equal air entry with no crackles, wheeze, rhonchi or dullness. On room air. No conversational dyspnea or accessory muscle use.. CVS: S1 and S2 normal with no audible murmur, regular rhythm. No extra heart sounds ABDOMEN: No hepatosplenomegaly, active bowel sounds, no guarding or rigidity. SPINE: No scoliosis or deformity SKIN: No rashes CENTRAL NERVOUS SYSTEM: No focal deficits, tone is normal in all 4 extremities. EXTREMITIES: There is no peripheral edema, clubbing, or cyanosis. Peripheral pulses are intact. - Labs CBC & Chem 7: 05/21/23 01:38 05/21/23 07:41 Labs: Abnormal Lab Results - Last 24 Hours (Table) 05/20/23 05/20/23 05/20/23 Range/Units 09:54 10:57 11:13 WBC (3.8-10.6) k/uL RBC (4.30-5.90) m/uL Hgb (13.0-17.5) gm/dL Hct (39.0-53.0) % RDW (11.5-15.5) % Neutrophils # (1.3-7.7) k/uL Sodium 146 H (137-145) mmol/L Chloride 114 H (98-107) mmol/L Carbon Dioxide 16 L (22-30) mmol/L Creatinine (0.66-1.25) mg/dL Glucose (74-99) mg/dL POC Glucose (mg/dL) 282 H 241 H (70-110) mg/dL Calcium (8.4-10.2) mg/dL 05/20/23 05/20/23 05/20/23 Range/Units 12:03 13:07 14:11 WBC (3.8-10.6) k/uL RBC (4.30-5.90) m/uL Hgb (13.0-17.5) gm/dL Hct (39.0-53.0) % RDW (11.5-15.5) % Neutrophils # (1.3-7.7) k/uL Sodium (137-145) mmol/L Chloride 113 H (98-107) mmol/L Carbon Dioxide 19 L (22-30) mmol/L Creatinine 0.59 L (0.66-1.25) mg/dL Glucose 190 H (74-99) mg/dL POC Glucose (mg/dL) 255 H 218 H (70-110) mg/dL Calcium (8.4-10.2) mg/dL 05/20/23 05/20/23 05/20/23 Range/Units 14:25 15:41 16:24 WBC (3.8-10.6) k/uL RBC (4.30-5.90) m/uL Hgb (13.0-17.5) gm/dL Hct (39.0-53.0) % RDW (11.5-15.5) % Neutrophils # (1.3-7.7) k/uL Sodium (137-145) mmol/L Chloride (98-107) mmol/L Carbon Dioxide (22-30) mmol/L Creatinine (0.66-1.25) mg/dL Glucose (74-99) mg/dL POC Glucose (mg/dL) 169 H 162 H 146 H (70-110) mg/dL Calcium (8.4-10.2) mg/dL 05/20/23 05/20/23 05/20/23 Range/Units 17:18 17:58 18:04 WBC (3.8-10.6) k/uL RBC (4.30-5.90) m/uL Hgb (13.0-17.5) gm/dL Hct (39.0-53.0) % RDW (11.5-15.5) % Neutrophils # (1.3-7.7) k/uL Sodium (137-145) mmol/L Chloride 110 H (98-107) mmol/L Carbon Dioxide 21 L (22-30) mmol/L Creatinine 0.53 L (0.66-1.25) mg/dL Glucose 131 H (74-99) mg/dL POC Glucose (mg/dL) 124 H 121 H (70-110) mg/dL Calcium (8.4-10.2) mg/dL 05/20/23 05/21/23 05/21/23 Range/Units 20:01 01:38 01:38 WBC 15.1 H (3.8-10.6) k/uL RBC 3.47 L (4.30-5.90) m/uL Hgb 10.1 L (13.0-17.5) gm/dL Hct 30.2 L (39.0-53.0) % RDW 16.6 H (11.5-15.5) % Neutrophils # 11.6 H (1.3-7.7) k/uL Sodium 134 L (137-145) mmol/L Chloride (98-107) mmol/L Carbon Dioxide (22-30) mmol/L Creatinine 0.47 L (0.66-1.25) mg/dL Glucose 108 H (74-99) mg/dL POC Glucose (mg/dL) 259 H (70-110) mg/dL Calcium 8.2 L (8.4-10.2) mg/dL 05/21/23 05/21/23 05/21/23 Range/Units 01:38 07:41 08:54 WBC (3.8-10.6) k/uL RBC (4.30-5.90) m/uL Hgb (13.0-17.5) gm/dL Hct (39.0-53.0) % RDW (11.5-15.5) % Neutrophils # (1.3-7.7) k/uL Sodium 133 L 133 L (137-145) mmol/L Chloride (98-107) mmol/L Carbon Dioxide (22-30) mmol/L Creatinine (0.66-1.25) mg/dL Glucose (74-99) mg/dL POC Glucose (mg/dL) 112 H (70-110) mg/dL Calcium (8.4-10.2) mg/dL Assessment and Plan Plan: Acute diabetic ketoacidosis, likely secondary to medication noncompliance, recovered and the patient was transferred to long-acting Levemir 30 units along with NovoLog 7 units with meals and a sliding scale coverage Severe anion gap metabolic acidosis, secondary to above , recovered Tachycardia, likely sinus, improving Severe dehydration, improving Acute kidney injury, prerenal, secondary to above Severe hyperkalemia, improving Hyperphosphatemia Type 1 diabetes mellitus, with poor medication compliance. Acute leukocytosis, likely reactive to DKA Diabetic neuropathy History of major depression Chronic marijuana use Chronic ongoing nicotine dependence Plan: Levemir insulin 30 units and NovoLog 7 units with meals (home dose) Transferred to the medical floor
[2023-05-21 12:40] LABS: Glucose,Whole Blood 175 mg/dL (70-110)
--- NOTE | 2023-05-22 04:10 | DS ---
DISCHARGE SUMMARY CHIEF COMPLAINT: Diabetic ketoacidosis. HISTORY OF PRESENT ILLNESS AND PHYSICAL EXAMINATION: Details of this man's history and physical can be found in the initial workup. COURSE IN HOSPITAL: After admission, he was placed at bedrest and started on DKA protocol in ICU. He became more awake and alert the next day and his blood sugars were brought under control. Once again, it was felt that he could be discharged and he was admonished to take his insulin. He will follow up in the office, if he shows up. FINAL DIAGNOSES: 1. DKA. 2. Metabolic acidosis. 3. Coma. OPERATIONS: None. CONSULTATIONS: Intensive Medicine, he is improved. MMSHANEL / IJN: [id number] /
== END 2023-05-21 15:00 | disposition home or self-care (01) | DRG 420 ==
LOC: EC 07:26 → 2SICU 11:09 → 6NMEDSUR 05-21 08:02
PROVIDERS: ADMIT Family Medicine; ATTEND Family Medicine
DX: E10.11 Type 1 diabetes mellitus with ketoacidosis with coma (principal); D64.9 Anemia, unspecified; I10 Essential (primary) hypertension; E83.39 Other disorders of phosphorus metabolism; E86.0 Dehydration; I95.9 Hypotension, unspecified; E10.42 Type 1 diabetes mellitus with diabetic polyneuropathy; E87.5 Hyperkalemia; L30.9 Dermatitis, unspecified; J45.909 Unspecified asthma, uncomplicated; Z79.4 Long term (current) use of insulin; Z79.899 Other long term (current) drug therapy; Z82.49 Family history of ischemic heart disease and other diseases of the circulatory system
CPT/HCPCS: 36415; 51702; 80048; 80051; 80053; 82009; 82565; 82803; 82947; 84100; 84520; 85025; 85027; 93005; 96360; 96361; 99291

== ENCOUNTER 2023-05-26 07:11 | Inpatient (IN) | payer OTHER ==
[2023-05-26] MEDS ORDERED: SODIUM CHLORIDE 0.9% 500 ML 500 ML IV STA (07:14)
[2023-05-26] MEDS ORDERED: SODIUM CHLORIDE 0.9% 2,000 ML IV STA (07:14)
[2023-05-26] MEDS ORDERED: METOCLOPRAMIDE 5 MG/ML 2 ML VIAL IVP STA (07:14)
[2023-05-26] MEDS ORDERED: INSULIN REGULAR BOLUS (FROM DRIP BAG) IV ONE (07:15)
--- NOTE | 2023-05-26 07:19 | ED ---
General Adult HPI - General Stated complaint: AMS Time Seen by Provider: 05/26/23 07:11 Source: patient, EMS, RN notes reviewed, old records reviewed Mode of arrival: EMS Limitations: no limitations - History of Present Illness Initial comments: 27-year-old male presents emergency department via EMS with chief complaint of hyperglycemia. Patient's mother found him on the couch confused, blood sugar reading high. Patient is well-known to the department is known diabetic. Marissa torrez states that his blood sugar was high all day yesterday. He states he did take insulin yesterday. He has not taken any recent insulin. Patient denies any alcohol use last night. Patient denies any fevers chills does complain of diffuse abdominal discomfort, nausea and vomiting. - Related Data Home Medications Medication Instructions Recorded Confirmed Insulin Detemir (Levemir) [Levemir] 30 unit SQ HS 03/07/23 05/19/23 Ergocalciferol [Vitamin D2 (1250 1,250 mcg PO Q30D 04/29/23 05/19/23 Mcg = 76190 Iu)] Famotidine [Pepcid] 20 mg PO BID 04/29/23 05/19/23 Gabapentin 600 mg PO TID 04/29/23 05/19/23 Insulin Lispro [Insulin Lispro 7 units SQ AC-TID 04/29/23 05/19/23 Kwikpen U-100] Losartan Potassium 50 mg PO DAILY 04/29/23 05/19/23 Mirtazapine 7.5 mg PO HS 04/29/23 05/19/23 Allergies Allergy/AdvReac Type Severity Reaction Status Date / Time No Known Allergies Allergy Verified 05/19/23 12:00 Review of Systems ROS Statement: Those systems with pertinent positive or pertinent negative responses have been documented in the HPI. ROS Other: All systems not noted in ROS Statement are negative. Past Medical History Past Medical History: Asthma, Diabetes Mellitus, Neurologic Disorder, Skin Disorder Additional Past Medical History / Comment(s): IDDM type I, neuropathy bilateral feet, DKA, eczema. History of Any Multi-Drug Resistant Organisms: None Reported Past Surgical History: Adenoidectomy Additional Past Surgical History / Comment(s): 2003 Recent EGD- gastritis Past Anesthesia/Blood Transfusion Reactions: No Reported Reaction Past Psychological History: Anxiety, Depression Smoking Status: Former smoker Past Alcohol Use History: None Reported Past Drug Use History: Marijuana - Past Family History Mother Family Medical History: CVA/TIA Additional Family Medical History / Comment(s): TIA Father Family Medical History: Hyperlipidemia, Hypertension Additional Family Medical History / Comment(s): . General Exam Limitations: no limitations General appearance: alert, in no apparent distress Head exam: Present: atraumatic, normocephalic, normal inspection Eye exam: Present: normal appearance, PERRL, EOMI. Absent: scleral icterus, conjunctival injection, periorbital swelling ENT exam: Present: mucous membranes dry. Absent: normal exam, mucous membranes moist Neck exam: Present: normal inspection, full ROM. Absent: tenderness, meningismus, lymphadenopathy Respiratory exam: Present: normal lung sounds bilaterally, other (tachypnea, ). Absent: respiratory distress, wheezes, rales, rhonchi, stridor Cardiovascular Exam: Present: normal rhythm, tachycardia, normal heart sounds. Absent: systolic murmur, diastolic murmur, rubs, gallop, clicks GI/Abdominal exam: Present: soft, tenderness, normal bowel sounds. Absent: distended, guarding, rebound, rigid Neurological exam: Present: alert Skin exam: Present: warm, dry, intact, normal color. Absent: rash Course Vital Signs 05/26/23 05/26/23 05/26/23 07:15 07:18 07:20 Temperature Pulse Rate 46 L Respiratory 24 Rate Blood Pressure 88/46 88/46 88/46 O2 Sat by Pulse 89 L 73 L Oximetry 05/26/23 05/26/23 05/26/23 07:30 07:40 07:50 Temperature Pulse Rate 102 H 102 H 99 Respiratory 24 24 22 Rate Blood Pressure 91/51 88/49 O2 Sat by Pulse Oximetry 05/26/23 05/26/23 05/26/23 08:00 08:06 08:10 Temperature 91.0 F L Pulse Rate 98 101 H Respiratory 24 24 Rate Blood Pressure 87/36 O2 Sat by Pulse 99 Oximetry 05/26/23 05/26/23 05/26/23 08:12 08:18 08:20 Temperature 90.9 F L Pulse Rate 101 H Respiratory 22 23 Rate Blood Pressure 87/40 O2 Sat by Pulse 99 Oximetry 05/26/23 05/26/23 05/26/23 08:30 08:40 08:50 Temperature Pulse Rate 105 H 103 H Respiratory 25 H 24 26 H Rate Blood Pressure 98/59 105/59 88/55 O2 Sat by Pulse 99 98 99 Oximetry 05/26/23 09:06 Temperature 90.3 F L Pulse Rate Respiratory Rate Blood Pressure O2 Sat by Pulse Oximetry EKG Findings - EKG Comments: EKG Findings:: EKG performed at 25 sinus tachycardia rate of 109 CO 171 116 QT/QTC 365/429 - EKG Results: EKG: interpreted by RUDOLPHD Medical Decision Making - Medical Decision Making Was pt. sent in by a medical professional or institution (, PA, LEAVE MANAGER, urgent care, hospital, or [facility]...) When possible be specific @ -No Did you speak to anyone other than the patient for history (EMS, parent, family, police, friend...)? What history was obtained from this source @ -EMS providing prehospital treatment, vitals and blood sugar. Did you review nursing and triage notes (agree or disagree)? Why? @ -I reviewed and agree with nursing and triage notes Were old charts reviewed (outside hosp., previous admission, EMS record, old EKG, old radiological studies, urgent care reports/EKG's, [facility] records)? Report findings @ -Reviewed prior laboratory studies Differential Diagnosis (chest pain, altered mental status, abdominal pain women, abdominal pain men, vaginal bleeding, weakness, fever, dyspnea, syncope, headache, dizziness, GI bleed, back pain, seizure, CVA, palpatations, mental health, musculoskeletal)? @ -DKA, hyperglycemia, nausea vomiting, altered mental status EKG interpreted by me (3pts min.). @ -As above X-rays interpreted by me (1pt min.). @ -None done CT interpreted by me (1pt min.). @ -None done U/S interpreted by me (1pt. min.). @ -None done What testing was considered but not performed or refused? (CT, X-rays, U/S, labs)? Why? @ -None What meds were considered but not given or refused? Why? @ -None Did you discuss the management of the patient with other professionals (professionals i.e. , PA, LEAVE MANAGER, lab, RT, psych nurse, social work lecturer, immigration lawyer, teacher, safety patrol officer, rn case management)? Give summary @ -Dr. Valenzuela/Dr. Shankar for admission to ICU for DKA Was smoking cessation discussed for >3mins.? @ -No Was critical care preformed (if so, how long)? @ -35 minutes Were there social determinants of health that impacted care today? How? (Homelessness, low income, unemployed, alcoholism, drug addiction, transportation, low edu. Level, literacy, decrease access to med. care, retirement, rehab)? @ -No Was there de-escalation of care discussed even if they declined (Discuss DNR or withdrawal of care, Hospice)? DNR status @ -No What co-morbidities impacted this encounter? (DM, HTN, Smoking, COPD, CAD, Cancer, CVA, ARF, Chemo, Hep., AIDS, mental health diagnosis, sleep apnea, morbid obesity)? @ -Diabetes Was patient admitted / discharged? Hospital course, mention meds given and rou te, prescriptions, significant lab abnormalities, going to OR and other pertinent info. @ -Admitted patient's found to be metabolic acidosis, DKA. Patient has a blood sugar of 980, pH of 6.81 CO2 15 HCO3 2, patient has severe acidosis at the lactic acid 5.8. Patient was given 2 and half liter normal saline bolus with maintenance fluids at 200, patient was started on insulin drip with insulin bolus and DKA protocol. Patient is admitted to ICU. Patient will have repeat laboratory studies every 4 hours. Patient does have significant leukocytosis without evidence of acute infection at this time. More likely to be reactive will have repeat laboratory studies. Undiagnosed new problem with uncertain prognosis? @ -No Drug Therapy requiring intensive monitoring for toxicity (Heparin, Nitro, Insulin, Cardizem)? @ -No Were any procedures done? @ -No Diagnosis/symptom? @ -DKA, Acute, or Chronic, or Acute on Chronic? @ -Acute Uncomplicated (without systemic symptoms) or Complicated (systemic symptoms)? @ -Complicated Side effects of treatment? @ -No Exacerbation, Progression, or Severe Exacerbation? @ -No Poses a threat to life or bodily function? How? (Chest pain, [place], [place], pneumonia, PE, COPD, DKA, ARF, appy, cholecystitis, CVA, Diverticulitis, Homicidal, Suicidal, threat to staff... and all critical care pts) @ -[Yes patient is in DKA - Lab Data Result diagrams: 05/26/23 07:48 Lab Results 05/26/23 05/26/23 05/26/23 Range/Units 07:19 07:48 07:48 VBG pH (7.31-7.41) VBG pCO2 (37-51) mmHg VBG HCO3 (24-28) mmol/L Sodium 137 (137-145) mmol/L Potassium 5.3 H (3.5-5.1) mmol/L Chloride 101 (98-107) mmol/L Carbon Dioxide <5 L* (22-30) mmol/L Anion Gap mmol/L BUN 32 H (9-20) mg/dL Creatinine 1.86 H (0.66-1.25) mg/dL Est GFR (CKD-EPI)AfAm 57 (>60 ml/min/1.73 sqM) Est GFR (CKD-EPI)NonAf 49 (>60 ml/min/1.73 sqM) Glucose 980 H* (74-99) mg/dL POC Glucose (mg/dL) >600 H (70-110) mg/dL POC Glu Egg Separator ID Mila Wong Plasma Lactic Acid Len (0.7-2.0) mmol/L Calcium 6.4 L* (8.4-10.2) mg/dL Phosphorus 11.1 H* (2.5-4.5) mg/dL Magnesium 2.2 (1.6-2.3) mg/dL Total Bilirubin 0.4 (0.2-1.3) mg/dL AST 27 (17-59) U/L ALT 19 (4-49) U/L Alkaline Phosphatase 85 (38-126) U/L Total Protein 5.1 L (6.3-8.2) g/dL Albumin 3.0 L (3.5-5.0) g/dL Lipase 620 H (23-300) U/L Urine Color Colorless Urine Appearance Clear (Clear) Urine pH 5.0 (5.0-8.0) Ur Specific Webster 1.021 (1.001-1.035) Urine Protein Negative (Negative) Urine Glucose (UA) 4+ H (Negative) Urine Ketones 3+ H (Negative) Urine Blood Negative (Negative) Urine Nitrite Negative (Negative) Urine Bilirubin Negative (Negative) Urine Urobilinogen <2.0 (<2.0) mg/dL Ur Leukocyte Esterase Negative (Negative) 05/26/23 05/26/23 05/26/23 Range/Units 07:48 07:48 08:44 VBG pH 6.81 L* (7.31-7.41) VBG pCO2 15 L* (37-51) mmHg VBG HCO3 2 L* (24-28) mmol/L Sodium (137-145) mmol/L Potassium (3.5-5.1) mmol/L Chloride (98-107) mmol/L Carbon Dioxide (22-30) mmol/L Anion Gap mmol/L BUN (9-20) mg/dL Creatinine (0.66-1.25) mg/dL Est GFR (CKD-EPI)AfAm (>60 ml/min/1.73 sqM) Est GFR (CKD-EPI)NonAf (>60 ml/min/1.73 sqM) Glucose (74-99) mg/dL POC Glucose (mg/dL) >600 H (70-110) mg/dL POC Glu Egg Separator ID Emi Oglesby Plasma Lactic Acid Len 5.3 H* (0.7-2.0) mmol/L Calcium (8.4-10.2) mg/dL Phosphorus (2.5-4.5) mg/dL Magnesium (1.6-2.3) mg/dL Total Bilirubin (0.2-1.3) mg/dL AST (17-59) U/L ALT (4-49) U/L Alkaline Phosphatase (38-126) U/L Total Protein (6.3-8.2) g/dL Albumin (3.5-5.0) g/dL Lipase (23-300) U/L Urine Color Urine Appearance (Clear) Urine pH (5.0-8.0) Ur Specific Webster (1.001-1.035) Urine Protein (Negative) Urine Glucose (UA) (Negative) Urine Ketones (Negative) Urine Blood (Negative) Urine Nitrite (Negative) Urine Bilirubin (Negative) Urine Urobilinogen (<2.0) mg/dL Ur Leukocyte Esterase (Negative) Critical Care Time Critical Care Time: Yes Total Critical Care Time: 35 Disposition Clinical Impression: DKA (diabetic ketoacidosis) Disposition[facility] Condition: Critical Referrals: Brown Valenzuela MD [Primary Care Provider] - 1-2 days Time of Disposition: 09:02
[2023-05-26 07:20] LABS: Glucose,Whole Blood >600 mg/dL (70-110)
[2023-05-26] MEDS: INSULIN REGULAR 100 UNIT in SODIUM CHLORIDE 0.9% 100 ML IV SCH ×2 (07:37→20:06)
[2023-05-26 08:27] LABS: ALT 19 U/L (4-49); AST 27 U/L (17-59); African American GFR (CKD) 57 (>60 ml/min/1.73 sqM); Alkaline Phosphatase 85 U/L (38-126); Blood Urea Nitrogen 32 mg/dL (9-20); Chloride 101 mmol/L (98-107); Lipase 620 U/L (23-300); Magnesium 2.2 mg/dL (1.6-2.3); Non-African American GFR(CKD) 49 (>60 ml/min/1.73 sqM); Sodium 137 mmol/L (137-145); Total Bilirubin 0.4 mg/dL (0.2-1.3); Total Protein 5.1 g/dL (6.3-8.2)
[2023-05-26 08:29] LABS: VBG PH 6.81 (7.31-7.41)
[2023-05-26 08:40] LABS: Appearance,Urine Clear (Clear); Bilirubin,Urine Negative (Negative); Blood,Urine Negative (Negative); Color,Urine Colorless; Glucose,Urine (UA) 4+ (Negative); Leukocyte Esterase,Urine Negative (Negative); Nitrite,Urine Negative (Negative); Protein,Urine Negative (Negative); Specific Gravity,Urine 1.021 (1.001-1.035); Urobilinogen,Urine <2.0 mg/dL (<2.0)
[2023-05-26 08:45] LABS: Glucose,Whole Blood >600 mg/dL (70-110)
[2023-05-26 08:48] LABS: Ketones,Urine 3+ (Negative)
[2023-05-26 08:52] LABS: Calcium 6.4 mg/dL (8.4-10.2); Carbon Dioxide <5 mmol/L (22-30); Glucose 980 mg/dL (74-99)
[2023-05-26 08:53] LABS: Phosphorus 11.1 mg/dL (2.5-4.5); Potassium 5.3 mmol/L (3.5-5.1)
[2023-05-26 09:11] LABS: HCT 39.9 % (39.0-53.0); HGB 10.8 gm/dL (13.0-17.5); Hypochromasia Marked; MCH 29.4 pg (25.0-35.0); Macrocytosis Marked; Mean Platelet Volume 10.3; Platelet Count 383 k/uL (150-450); RBC 3.66 m/uL (4.30-5.90); RDW 15.5 % (11.5-15.5)
[2023-05-26 09:14] LABS: MCV 108.9 fL (80.0-100.0); WBC 50.3 k/uL (3.8-10.6)
[2023-05-26 09:49] LABS: Band Neutrophils % 5 %; Eosinophils # (M) 1.01 k/uL (0-0.7); Lymphocytes # (M) 9.05 k/uL (1.0-4.8); Monocytes # (M) 3.52 k/uL (0-1.0); Myelocytes # (M) 1.01 k/uL (0); Myelocytes % 2 %; Neutrophils % (M) 68 %; Nucleated Red Blood Cells 0 /100 WBC (0-0); Total Cells Counted 200
[2023-05-26] MEDS ORDERED: HYDROmorphone 0.5 MG/0.5 ML SYRINGE IVP STA (09:53)
[2023-05-26] MEDS ORDERED: KETOROLAC 15 MG/ML 1 ML VIAL IVP STA (09:53)
[2023-05-26 10:06] LABS: Glucose,Whole Blood >600 mg/dL (70-110)
[2023-05-26] MEDS: SODIUM CHLORIDE 0.9% 1,000 ML IV SCH ×2 (10:07→17:09)
[2023-05-26 10:47] LABS: Glucose,Whole Blood >600 mg/dL (70-110)
--- NOTE | 2023-05-26 10:49 | P.CNPUL ---
History of Present Illness Consult date: 05/26/23 Chief complaint: Hyperglycemia History of present illness: 27-year-old male patient, coming in for DKA. This patient has been admitted 37 times for the year 2022 for DKA episodes. He is essentially noncompliant. He refuses to be placed to be taking care of and he does not take care of himself. His last admission was on 05/20/2023 and he was discharged on 05/21/2023 after being treated for the same. The patient came into the ED with hyperglycemia. He was found to be confused, blood sugars were reading high, usually has not taken his insulin. Denies using alcohol. In the emergency, the patient was found to be tachycardic, slightly hypotensive, complaining of nausea. Blood work shows a serum bicarb of less than 5, high anion gap, but she was at 980, BUN is at 32 with a creatinine of 1.8. His potassium levels at 5.3. Phosphorus is 11.1 with a calcium level of 6.4. LFTs are normal. UA showed +4 glucose and ketones. As lactic acid level was at 5.3. He was started on IV fluids. He was given boluses a total of 2 and currently is on fluids with normal saline at the rate of 200 mL an hour and is also on insulin drip at 0.1 units per kilogram per hour. Review of Systems CONSTITUTIONAL: Denies any recent significant weight loss or weight gain. EYES: Denies change in vision. EARS, NOSE, MOUTH, THROAT: Denies headaches, denies sore throat. CARDIOVASCULAR: Denies chest pain, palpitations or syncopal episodes. RESPIRATORY: Denies shortness of breath, cough, congestion or hemoptysis. GASTROINTESTINAL: Denies change in appetite, abdominal pain, or diarrhea. Admits nausea and vomiting. Denies hematemesis GENITOURINARY: Denies hematuria, denies infections. MUSKULOSKELETAL: Denies pain, denies swelling. INTEGUMENTARY: Denies rash, denies eczema. NEUROLOGICAL: Denies recent memory loss, no recent seizure activity. PSYCHIATRIC: Denies anxiety, denies depression. HEMATOLOGIC/LYMPHATIC: Denies anemia, denies enlarged lymph node Past Medical History Past Medical History: Asthma, Diabetes Mellitus, Neurologic Disorder, Skin Disorder Additional Past Medical History / Comment(s): IDDM type I, neuropathy bilateral feet, DKA, eczema. History of Any Multi-Drug Resistant Organisms: None Reported Past Surgical History: Adenoidectomy Additional Past Surgical History / Comment(s): 2003 Recent EGD- gastritis Past Anesthesia/Blood Transfusion Reactions: No Reported Reaction Past Psychological History: Anxiety, Depression Smoking Status: Former smoker Past Alcohol Use History: None Reported Past Drug Use History: Marijuana - Past Family History Mother Family Medical History: CVA/TIA Additional Family Medical History / Comment(s): TIA Father Family Medical History: Hyperlipidemia, Hypertension Additional Family Medical History / Comment(s): . Medications and Allergies Home Medications Medication Instructions Recorded Confirmed Type Insulin Detemir (Levemir) [Levemir] 30 unit SQ HS 03/07/23 05/26/23 History Ergocalciferol [Vitamin D2 (1250 1,250 mcg PO Q30D 04/29/23 05/26/23 History Mcg = 30247 Iu)] Famotidine [Pepcid] 20 mg PO BID 04/29/23 05/26/23 History Gabapentin 600 mg PO TID 04/29/23 05/26/23 History Insulin Lispro [Insulin Lispro 7 units SQ AC-TID 04/29/23 05/26/23 History Kwikpen U-100] Losartan Potassium 50 mg PO DAILY 04/29/23 05/26/23 History Mirtazapine 7.5 mg PO HS 04/29/23 05/26/23 History Allergies Allergy/AdvReac Type Severity Reaction Status Date / Time No Known Allergies Allergy Verified 05/26/23 10:33 Physical Exam Vitals: Vital Signs Temp Pulse Resp BP Pulse Ox 05/26/23 09:30 123 H 22 97/56 99 05/26/23 09:20 123 H 23 92/65 98 05/26/23 09:10 128 H 24 107/93 100 05/26/23 09:06 90.3 F L 05/26/23 09:00 108 H 24 88/55 100 05/26/23 08:50 26 H 88/55 99 05/26/23 08:40 103 H 24 105/59 98 05/26/23 08:30 105 H 25 H 98/59 99 05/26/23 08:20 101 H 23 87/40 99 05/26/23 08:18 90.9 F L 05/26/23 08:12 22 05/26/23 08:10 101 H 24 87/36 99 05/26/23 08:06 91.0 F L 05/26/23 08:00 98 24 05/26/23 07:50 99 22 05/26/23 07:40 102 H 24 88/49 05/26/23 07:30 102 H 24 91/51 05/26/23 07:20 88/46 73 L 05/26/23 07:18 46 L 24 88/46 89 L 05/26/23 07:15 88/46 Intake and Output 05/25/23 05/26/23 05/26/23 22:59 06:59 14:59 Other: Weight 61.235 kg GENERAL EXAM: Alert, 27-year-old white male, not in acute distress, currently on room air oxygen HEAD: Normocephalic and atraumatic EYES: Normal reaction of pupils, equal size. NOSE: Clear with pink turbinates. THROAT: No erythema or exudates. Poor dentition NECK: No masses, no JVD. CHEST: No chest wall deformity. LUNGS: Equal air entry with no crackles, wheeze, rhonchi or dullness. On room air. No conversational dyspnea or accessory muscle use.. CVS: S1 and S2 normal with no audible murmur, regular rhythm. No extra heart sounds ABDOMEN: No hepatosplenomegaly, active bowel sounds, no guarding or rigidity. SPINE: No scoliosis or deformity SKIN: No rashes CENTRAL NERVOUS SYSTEM: No focal deficits, tone is normal in all 4 extremities. EXTREMITIES: There is no peripheral edema, clubbing, or cyanosis. Peripheral pu lses are intact. Results - Laboratory Findings CBC and BMP: 05/26/23 07:48 05/26/23 07:48 Abnormal lab findings: Abnormal Labs 05/26/23 05/26/23 05/26/23 07:19 07:48 07:48 WBC 50.3 H* RBC 3.66 L Hgb 10.8 L MCV 108.9 H D MCHC 27.0 L Neutrophils # (Manual) 36.70 H Lymphocytes # (Manual) 9.05 H Monocytes # (Manual) 3.52 H Eosinophils # (Manual) 1.01 H Myelocytes # (Manual) 1.01 H Macrocytosis Marked A VBG pH VBG pCO2 VBG HCO3 Potassium Carbon Dioxide BUN Creatinine Glucose POC Glucose (mg/dL) >600 H Plasma Lactic Acid Len Calcium Phosphorus Total Protein Albumin Lipase Urine Glucose (UA) 4+ H Urine Ketones 3+ H 05/26/23 05/26/23 05/26/23 07:48 07:48 07:48 WBC RBC Hgb MCV MCHC Neutrophils # (Manual) Lymphocytes # (Manual) Monocytes # (Manual) Eosinophils # (Manual) Myelocytes # (Manual) Macrocytosis VBG pH 6.81 L* VBG pCO2 15 L* VBG HCO3 2 L* Potassium 5.3 H Carbon Dioxide <5 L* BUN 32 H Creatinine 1.86 H Glucose 980 H* POC Glucose (mg/dL) Plasma Lactic Acid Len 5.3 H* Calcium 6.4 L* Phosphorus 11.1 H* Total Protein 5.1 L Albumin 3.0 L Lipase 620 H Urine Glucose (UA) Urine Ketones 05/26/23 05/26/23 08:44 10:04 WBC RBC Hgb MCV MCHC Neutrophils # (Manual) Lymphocytes # (Manual) Monocytes # (Manual) Eosinophils # (Manual) Myelocytes # (Manual) Macrocytosis VBG pH VBG pCO2 VBG HCO3 Potassium Carbon Dioxide BUN Creatinine Glucose POC Glucose (mg/dL) >600 H >600 H Plasma Lactic Acid Len Calcium Phosphorus Total Protein Albumin Lipase Urine Glucose (UA) Urine Ketones Assessment and Plan Plan: Acute diabetic ketoacidosis, recurrent. The patient comes in the first day of the year 2023 and this is his first admission for the current year. He has been admitted 37 for the year 2022. This patient is essentially noncompliant and he was discharged from the hospital on 05/21/2023, after being treated for DKA. He was discharged home on long-acting Levemir 30 units along with NovoLog 7 units with meals and a sliding scale coverage Severe anion gap metabolic acidosis, secondary to above Lactic acidosis Severe leukocytosis, likely reactive Sinus tachycardia Severe dehydration Acute kidney injury, prerenal, secondary to above Hyperphosphatemia Type 1 diabetes mellitus, with poor medication compliance. Diabetic neuropathy History of major depression Chronic marijuana use Chronic ongoing nicotine dependence Plan: We'll initiate DKA protocol Need to have serious discussion with the patient and family at this patient is unable to take care of himself. Strongly support long-term placement. Psychiatric evaluation done in the past. Guardianship has been contemplated and provided. He has been living with his mother. NO luck in making this patient compliant to Insulin. As , he had 37 admissions for the year 2022.
[2023-05-26] MEDS ORDERED: NALOXONE 0.4 MG/ML 1 ML VIAL IV PRN (11:31)
[2023-05-26 12:23] LABS: Glucose,Whole Blood >600 mg/dL (70-110)
[2023-05-26 12:23] LABS: Glucose,Whole Blood >600 mg/dL (70-110)
[2023-05-26 12:30] LABS: African American GFR (CKD) 57 (>60 ml/min/1.73 sqM); Blood Urea Nitrogen 38 mg/dL (9-20); Chloride 93 mmol/L (98-107); Non-African American GFR(CKD) 50 (>60 ml/min/1.73 sqM); Sodium 131 mmol/L (137-145)
[2023-05-26 12:48] LABS: Glucose 794 mg/dL (74-99); Potassium 7.2 mmol/L (3.5-5.1)
[2023-05-26] MEDS ORDERED: SODIUM BICARB 8.4% 50 ML SYR (1 MEQ/ML) IV STA (13:04)
[2023-05-26 13:14] LABS: Glucose,Whole Blood 528 mg/dL (70-110)
[2023-05-26] MEDS ORDERED: CALCIUM GLUCONATE IN NACL 1 GM in SALINE 1 100ML.BAG IVPB ONE (13:30)
[2023-05-26 14:23] LABS: Glucose,Whole Blood 414 mg/dL (70-110)
[2023-05-26 15:12] LABS: Glucose,Whole Blood 312 mg/dL (70-110)
[2023-05-26 16:00] LABS: African American GFR (CKD) >90 (>60 ml/min/1.73 sqM); Anion Gap 26 mmol/L; Blood Urea Nitrogen 32 mg/dL (9-20); Carbon Dioxide 12 mmol/L (22-30); Chloride 100 mmol/L (98-107); Glucose 284 mg/dL (74-99); Non-African American GFR(CKD) 89 (>60 ml/min/1.73 sqM); Potassium 5.1 mmol/L (3.5-5.1); Sodium 138 mmol/L (137-145)
[2023-05-26 16:11] LABS: Glucose,Whole Blood 237 mg/dL (70-110)
[2023-05-26] MEDS: D5-0.45% NACL WITH KCL 20MEQ/L 1,000 ML IV SCH ×2 (16:31→23:00)
[2023-05-26 17:09] LABS: Glucose,Whole Blood 237 mg/dL (70-110)
[2023-05-26 18:23] LABS: Glucose,Whole Blood 192 mg/dL (70-110)
[2023-05-26 19:04] LABS: Glucose,Whole Blood 191 mg/dL (70-110)
[2023-05-26] MEDS: ONDANSETRON 4 MG/2 ML VIAL IVP PRN (19:31)
[2023-05-26 20:03] LABS: Glucose,Whole Blood 177 mg/dL (70-110)
[2023-05-26 21:23] LABS: African American GFR (CKD) >90 (>60 ml/min/1.73 sqM); Anion Gap 15 mmol/L; Blood Urea Nitrogen 29 mg/dL (9-20); Calcium 8.1 mg/dL (8.4-10.2); Carbon Dioxide 20 mmol/L (22-30); Chloride 102 mmol/L (98-107); Glucose 148 mg/dL (74-99); Non-African American GFR(CKD) >90 (>60 ml/min/1.73 sqM); Phosphorus 2.1 mg/dL (2.5-4.5); Potassium 4.5 mmol/L (3.5-5.1); Sodium 137 mmol/L (137-145)
[2023-05-26 21:38] LABS: Glucose,Whole Blood 140 mg/dL (70-110)
[2023-05-26 22:31] LABS: Glucose,Whole Blood 127 mg/dL (70-110)
[2023-05-26 23:26] LABS: Glucose,Whole Blood 130 mg/dL (70-110)
[2023-05-27 00:15] LABS: Glucose,Whole Blood 150 mg/dL (70-110)
[2023-05-27 01:04] LABS: Glucose,Whole Blood 170 mg/dL (70-110)
[2023-05-27 02:15] LABS: Glucose,Whole Blood 194 mg/dL (70-110)
[2023-05-27 03:03] LABS: Glucose,Whole Blood 216 mg/dL (70-110)
[2023-05-27 04:03] LABS: Glucose,Whole Blood 203 mg/dL (70-110)
[2023-05-27 05:38] LABS: Anisocytosis Slight; Basophils # (A) 0.1 k/uL (0-0.2); Basophils % (A) 0 %; Eosinophils % (A) 0 %; HCT 29.5 % (39.0-53.0); HGB 9.6 gm/dL (13.0-17.5); Lymphocytes # (A) 1.6 k/uL (1.0-4.8); Lymphocytes % (A) 7 %; MCH 28.4 pg (25.0-35.0); MCHC 32.7 g/dL (31.0-37.0); Mean Platelet Volume 7.3; Monocytes # (A) 1.7 k/uL (0-1.0); Monocytes % (A) 7 %; Neutrophils # (A) 20.3 k/uL (1.3-7.7); Neutrophils % (A) 84 %; Platelet Count 385 k/uL (150-450); RBC 3.39 m/uL (4.30-5.90); RDW 16.5 % (11.5-15.5); WBC 24.2 k/uL (3.8-10.6)
[2023-05-27 05:40] LABS: Glucose,Whole Blood 246 mg/dL (70-110)
[2023-05-27 05:44] LABS: MCV 86.9 fL (80.0-100.0)
[2023-05-27 05:50] LABS: African American GFR (CKD) >90 (>60 ml/min/1.73 sqM); Anion Gap 15 mmol/L; Blood Urea Nitrogen 20 mg/dL (9-20); Calcium 7.7 mg/dL (8.4-10.2); Carbon Dioxide 18 mmol/L (22-30); Chloride 97 mmol/L (98-107); Glucose 230 mg/dL (74-99); Non-African American GFR(CKD) >90 (>60 ml/min/1.73 sqM); Potassium 4.4 mmol/L (3.5-5.1); Sodium 130 mmol/L (137-145)
[2023-05-27 06:28] LABS: Glucose,Whole Blood 274 mg/dL (70-110)
[2023-05-27 07:45] LABS: Glucose,Whole Blood 212 mg/dL (70-110)
[2023-05-27 09:10] LABS: Glucose,Whole Blood 154 mg/dL (70-110)
[2023-05-27 09:17] LABS: African American GFR (CKD) >90 (>60 ml/min/1.73 sqM); Anion Gap 12 mmol/L; Blood Urea Nitrogen 16 mg/dL (9-20); Carbon Dioxide 23 mmol/L (22-30); Chloride 98 mmol/L (98-107); Glucose 143 mg/dL (74-99); Non-African American GFR(CKD) >90 (>60 ml/min/1.73 sqM); Phosphorus 1.5 mg/dL (2.5-4.5); Potassium 3.9 mmol/L (3.5-5.1); Sodium 133 mmol/L (137-145)
[2023-05-27 10:13] LABS: Glucose,Whole Blood 119 mg/dL (70-110)
[2023-05-27] MEDS: PANTOPRAZOLE 40 MG/10 ML VIAL IV SCH (10:29)
[2023-05-27 11:01] VITALS: BMI 19.0
[2023-05-27 11:13] LABS: Glucose,Whole Blood 112 mg/dL (70-110)
[2023-05-27 12:07] LABS: Glucose,Whole Blood 125 mg/dL (70-110)
[2023-05-27 12:28] LABS: ALT 17 U/L (4-49); AST 20 U/L (17-59); African American GFR (CKD) >90 (>60 ml/min/1.73 sqM); Albumin 3.1 g/dL (3.5-5.0); Alkaline Phosphatase 88 U/L (38-126); Anion Gap 9 mmol/L; Blood Urea Nitrogen 13 mg/dL (9-20); Calcium 7.9 mg/dL (8.4-10.2); Carbon Dioxide 25 mmol/L (22-30); Chloride 95 mmol/L (98-107); Glucose 124 mg/dL (74-99); Non-African American GFR(CKD) >90 (>60 ml/min/1.73 sqM); Phosphorus 1.5 mg/dL (2.5-4.5); Potassium 3.7 mmol/L (3.5-5.1); Sodium 129 mmol/L (137-145); Total Bilirubin 0.4 mg/dL (0.2-1.3); Total Protein 5.4 g/dL (6.3-8.2)
--- NOTE | 2023-05-27 12:53 | P.PN ---
Subjective Progress Note Date: 05/27/23 Principal diagnosis: Acute diabetic ketoacidosis 27-year-old male patient, coming in for DKA. This patient has been admitted 37 times for the year 2022 for DKA episodes. He is essentially noncompliant. He refuses to be placed to be taking care of and he does not take care of himself. His last admission was on 05/20/2023 and he was discharged on 05/21/2023 after being treated for the same. The patient came into the ED with hyperglycemia. He was found to be confused, blood sugars were reading high, usually has not taken his insulin. Denies using alcohol. In the emergency, the patient was found to be tachycardic, slightly hypotensive, complaining of nausea. Blood wo rk shows a serum bicarb of less than 5, high anion gap, but she was at 980, BUN is at 32 with a creatinine of 1.8. His potassium levels at 5.3. Phosphorus is 11.1 with a calcium level of 6.4. LFTs are normal. UA showed +4 glucose and ketones. As lactic acid level was at 5.3. He was started on IV fluids. He was given boluses a total of 2 and currently is on fluids with normal saline at the rate of 200 mL an hour and is also on insulin drip at 0.1 units per kilogram per hour. Patient was reevaluated today on 05/27/2023, remains in the ICU, remains on the DKA protocol. Patient is receiving D5 4 5 with 20 mEq of K at 1 50 mL per hour receiving insulin drip at 6.92 units per hour his anion gap is 15 bicarb is 18, clinically however the patient is feeling better denies any nausea vomiting abdominal pain or shortness of breath. Objective - Vital Signs Vital signs: Vital Signs Temp 97.7 F 05/27/23 12:00 Pulse 103 H 05/27/23 12:00 Resp 5 L 05/27/23 12:00 BP 113/75 05/27/23 12:00 Pulse Ox 91 L 05/27/23 12:00 FiO2 Intake & Output 05/26/23 05/27/23 05/27/23 18:59 06:59 18:59 Intake Total 1550 1896.489 781.339 Output Total 3025 900 1000 Balance -1475 996.489 -218.661 Weight 69 kg 69 kg 69 kg Intake: IV 1550 1800 750 Calcium Gluconate in NaCl 100 1 gm In Saline 1 100ml. bag @ 100 mls/hr IVPB ONCE ONE Rx#:[id number] D5-0.45% NaCl with KCl 450 1800 750 20Meq/l 1,000 ml @ 150 mls/hr IV .[id number] [facility] Rx# :[id number] Sodium Chloride 0.9% 1, 1000 000 ml @ 200 mls/hr IV . Q5H [facility] Rx#:[id number] Intake, IV Titration 96.489 31.339 Amount Insulin Regular 100 unit 96.489 31.339 In Sodium Chloride 0.9% 100 ml @ 0.1 UNITS/KG/HR 6.185 mls/hr IV .[id number] [facility] Rx#:[id number] Output: Urine 3025 900 1000 Other: Voiding Method Indwelling Catheter Indwelling Catheter - Exam Physical Exam: Revealed a 27-year-old white male in no distress Head: Atraumatic normocephalic HEENT:[Neck is supple.] [No neck masses.] [No thyromegaly.] [No JVD.] Chest: [Clear throughout, no crackles, no rhonchi, no wheezes.] Cardiac Exam: [Normal S1 and S2, no S3 gallop, no murmur.] Abdomen: [Soft, nontender, no megaly, no rebound, no guarding, normal bowel sounds.] Extremities: [No clubbing, no edema, no cyanosis.] Neurological Exam: [No focal neurologic deficit.] Alert oriented 3 Psychiatric: Normal mood affect and normal mental status examination In: No rashes - Labs CBC & Chem 7: 05/27/23 05:07 05/27/23 12:03 Labs: Abnormal Lab Results - Last 24 Hours (Table) 05/26/23 05/26/23 05/26/23 Range/Units 11:38 11:38 13:11 WBC (3.8-10.6) k/uL RBC (4.30-5.90) m/uL Hgb (13.0-17.5) gm/dL Hct (39.0-53.0) % RDW (11.5-15.5) % Neutrophils # (1.3-7.7) k/uL Monocytes # (0-1.0) k/uL Sodium 131 L (137-145) mmol/L Potassium 7.2 H* (3.5-5.1) mmol/L Chloride 93 L (98-107) mmol/L Carbon Dioxide <5 L* (22-30) mmol/L BUN 38 H (9-20) mg/dL Creatinine 1.85 H (0.66-1.25) mg/dL Glucose 794 H* (74-99) mg/dL POC Glucose (mg/dL) 528 H (70-110) mg/dL Calcium (8.4-10.2) mg/dL Phosphorus 9.3 H* (2.5-4.5) mg/dL Total Protein (6.3-8.2) g/dL Albumin (3.5-5.0) g/dL 05/26/23 05/26/23 05/26/23 Range/Units 14:21 15:11 15:32 WBC (3.8-10.6) k/uL RBC (4.30-5.90) m/uL Hgb (13.0-17.5) gm/dL Hct (39.0-53.0) % RDW (11.5-15.5) % Neutrophils # (1.3-7.7) k/uL Monocytes # (0-1.0) k/uL Sodium (137-145) mmol/L Potassium (3.5-5.1) mmol/L Chloride (98-107) mmol/L Carbon Dioxide 12 L (22-30) mmol/L BUN 32 H (9-20) mg/dL Creatinine (0.66-1.25) mg/dL Glucose 284 H (74-99) mg/dL POC Glucose (mg/dL) 414 H 312 H (70-110) mg/dL Calcium (8.4-10.2) mg/dL Phosphorus (2.5-4.5) mg/dL Total Protein (6.3-8.2) g/dL Albumin (3.5-5.0) g/dL 05/26/23 05/26/23 05/26/23 Range/Units 16:09 17:08 18:21 WBC (3.8-10.6) k/uL RBC (4.30-5.90) m/uL Hgb (13.0-17.5) gm/dL Hct (39.0-53.0) % RDW (11.5-15.5) % Neutrophils # (1.3-7.7) k/uL Monocytes # (0-1.0) k/uL Sodium (137-145) mmol/L Potassium (3.5-5.1) mmol/L Chloride (98-107) mmol/L Carbon Dioxide (22-30) mmol/L BUN (9-20) mg/dL Creatinine (0.66-1.25) mg/dL Glucose (74-99) mg/dL POC Glucose (mg/dL) 237 H 237 H 192 H (70-110) mg/dL Calcium (8.4-10.2) mg/dL Phosphorus (2.5-4.5) mg/dL Total Protein (6.3-8.2) g/dL Albumin (3.5-5.0) g/dL 05/26/23 05/26/23 05/26/23 Range/Units 19:03 20:02 20:48 WBC (3.8-10.6) k/uL RBC (4.30-5.90) m/uL Hgb (13.0-17.5) gm/dL Hct (39.0-53.0) % RDW (11.5-15.5) % Neutrophils # (1.3-7.7) k/uL Monocytes # (0-1.0) k/uL Sodium (137-145) mmol/L Potassium (3.5-5.1) mmol/L Chloride (98-107) mmol/L Carbon Dioxide 20 L (22-30) mmol/L BUN 29 H (9-20) mg/dL Creatinine (0.66-1.25) mg/dL Glucose 148 H (74-99) mg/dL POC Glucose (mg/dL) 191 H 177 H (70-110) mg/dL Calcium 8.1 L (8.4-10.2) mg/dL Phosphorus 2.1 L (2.5-4.5) mg/dL Total Protein (6.3-8.2) g/dL Albumin (3.5-5.0) g/dL 05/26/23 05/26/2324 Range/Units 21:36 22:30 23:24 WBC (3.8-10.6) k/uL RBC (4.30-5.90) m/uL Hgb (13.0-17.5) gm/dL Hct (39.0-53.0) % RDW (11.5-15.5) % Neutrophils # (1.3-7.7) k/uL Monocytes # (0-1.0) k/uL Sodium (137-145) mmol/L Potassium (3.5-5.1) mmol/L Chloride (98-107) mmol/L Carbon Dioxide (22-30) mmol/L BUN (9-20) mg/dL Creatinine (0.66-1.25) mg/dL Glucose (74-99) mg/dL POC Glucose (mg/dL) 140 H 127 H 130 H (70-110) mg/dL Calcium (8.4-10.2) mg/dL Phosphorus (2.5-4.5) mg/dL Total Protein (6.3-8.2) g/dL Albumin (3.5-5.0) g/dL 05/27/23 05/27/23 05/27/23 Range/Units 00:14 01:03 02:14 WBC (3.8-10.6) k/uL RBC (4.30-5.90) m/uL Hgb (13.0-17.5) gm/dL Hct (39.0-53.0) % RDW (11.5-15.5) % Neutrophils # (1.3-7.7) k/uL Monocytes # (0-1.0) k/uL Sodium (137-145) mmol/L Potassium (3.5-5.1) mmol/L Chloride (98-107) mmol/L Carbon Dioxide (22-30) mmol/L BUN (9-20) mg/dL Creatinine (0.66-1.25) mg/dL Glucose (74-99) mg/dL POC Glucose (mg/dL) 150 H 170 H 194 H (70-110) mg/dL Calcium (8.4-10.2) mg/dL Phosphorus (2.5-4.5) mg/dL Total Protein (6.3-8.2) g/dL Albumin (3.5-5.0) g/dL 05/27/23 05/27/23 05/27/23 Range/Units 03:02 03:59 05:07 WBC 24.2 H (3.8-10.6) k/uL RBC 3.39 L (4.30-5.90) m/uL Hgb 9.6 L (13.0-17.5) gm/dL Hct 29.5 L (39.0-53.0) % RDW 16.5 H (11.5-15.5) % Neutrophils # 20.3 H (1.3-7.7) k/uL Monocytes # 1.7 H (0-1.0) k/uL Sodium (137-145) mmol/L Potassium (3.5-5.1) mmol/L Chloride (98-107) mmol/L Carbon Dioxide (22-30) mmol/L BUN (9-20) mg/dL Creatinine (0.66-1.25) mg/dL Glucose (74-99) mg/dL POC Glucose (mg/dL) 216 H 203 H (70-110) mg/dL Calcium (8.4-10.2) mg/dL Phosphorus (2.5-4.5) mg/dL Total Protein (6.3-8.2) g/dL Albumin (3.5-5.0) g/dL 05/27/23 05/27/23 05/27/23 Range/Units 05:07 05:39 06:26 WBC (3.8-10.6) k/uL RBC (4.30-5.90) m/uL Hgb (13.0-17.5) gm/dL Hct (39.0-53.0) % RDW (11.5-15.5) % Neutrophils # (1.3-7.7) k/uL Monocytes # (0-1.0) k/uL Sodium 130 L (137-145) mmol/L Potassium (3.5-5.1) mmol/L Chloride 97 L (98-107) mmol/L Carbon Dioxide 18 L (22-30) mmol/L BUN (9-20) mg/dL Creatinine 0.65 L (0.66-1.25) mg/dL Glucose 230 H (74-99) mg/dL POC Glucose (mg/dL) 246 H 274 H (70-110) mg/dL Calcium 7.7 L (8.4-10.2) mg/dL Phosphorus (2.5-4.5) mg/dL Total Protein (6.3-8.2) g/dL Albumin (3.5-5.0) g/dL 05/27/23 05/27/23 05/27/23 Range/Units 07:44 08:42 09:09 WBC (3.8-10.6) k/uL RBC (4.30-5.90) m/uL Hgb (13.0-17.5) gm/dL Hct (39.0-53.0) % RDW (11.5-15.5) % Neutrophils # (1.3-7.7) k/uL Monocytes # (0-1.0) k/uL Sodium 133 L (137-145) mmol/L Potassium (3.5-5.1) mmol/L Chloride (98-107) mmol/L Carbon Dioxide (22-30) mmol/L BUN (9-20) mg/dL Creatinine (0.66-1.25) mg/dL Glucose 143 H (74-99) mg/dL POC Glucose (mg/dL) 212 H 154 H (70-110) mg/dL Calcium 8.0 L (8.4-10.2) mg/dL Phosphorus 1.5 L (2.5-4.5) mg/dL Total Protein (6.3-8.2) g/dL Albumin (3.5-5.0) g/dL 05/27/23 05/27/23 05/27/23 Range/Units 10:12 11:12 12:03 WBC (3.8-10.6) k/uL RBC (4.30-5.90) m/uL Hgb (13.0-17.5) gm/dL Hct (39.0-53.0) % RDW (11.5-15.5) % Neutrophils # (1.3-7.7) k/uL Monocytes # (0-1.0) k/uL Sodium 129 L (137-145) mmol/L Potassium (3.5-5.1) mmol/L Chloride 95 L (98-107) mmol/L Carbon Dioxide (22-30) mmol/L BUN (9-20) mg/dL Creatinine 0.62 L (0.66-1.25) mg/dL Glucose 124 H (74-99) mg/dL POC Glucose (mg/dL) 119 H 112 H (70-110) mg/dL Calcium 7.9 L (8.4-10.2) mg/dL Phosphorus 1.5 L (2.5-4.5) mg/dL Total Protein 5.4 L (6.3-8.2) g/dL Albumin 3.1 L (3.5-5.0) g/dL 05/27/23 Range/Units 12:05 WBC (3.8-10.6) k/uL RBC (4.30-5.90) m/uL Hgb (13.0-17.5) gm/dL Hct (39.0-53.0) % RDW (11.5-15.5) % Neutrophils # (1.3-7.7) k/uL Monocytes # (0-1.0) k/uL Sodium (137-145) mmol/L Potassium (3.5-5.1) mmol/L Chloride (98-107) mmol/L Carbon Dioxide (22-30) mmol/L BUN (9-20) mg/dL Creatinine (0.66-1.25) mg/dL Glucose (74-99) mg/dL POC Glucose (mg/dL) 125 H (70-110) mg/dL Calcium (8.4-10.2) mg/dL Phosphorus (2.5-4.5) mg/dL Total Protein (6.3-8.2) g/dL Albumin (3.5-5.0) g/dL Assessment and Plan Assessment: Impression: Acute diabetic ketoacidosis, Severe anion gap metabolic acidosis, secondary to above Lactic acidosis Severe leukocytosis, likely reactive Sinus tachycardia Severe dehydration Acute kidney injury, prerenal, secondary to above Hyperphosphatemia Type 1 diabetes mellitus, with poor medication compliance. Diabetic neuropathy History of major depression Chronic marijuana use Chronic ongoing nicotine dependence Recommendation: Continue DKA protocol Continue to monitor blood sugar as per protocol and monitor electrolytes and renal profile Continue IV fluids D5 45 Continue insulin drip for now and will eventually transitioned to subcu insulin and long-acting insulin We'll continue to follow Time with Patient: Less than 30
[2023-05-27 13:13] LABS: Glucose,Whole Blood 226 mg/dL (70-110)
[2023-05-27] MEDS: D5-0.45% NACL WITH KCL 20MEQ/L 1,000 ML IV SCH ×3 (14:28→16:53)
[2023-05-27 14:33] LABS: Glucose,Whole Blood 293 mg/dL (70-110)
[2023-05-27 15:08] LABS: Glucose,Whole Blood 288 mg/dL (70-110)
[2023-05-27] MEDS ORDERED: DEXTROSE 50% SYRINGE 50 ML IVP PRN ×2 (16:08)
[2023-05-27 16:43] LABS: Glucose,Whole Blood 380 mg/dL (70-110)
[2023-05-27] MEDS: INSULIN ASPART (NovoLOG) 100 UNIT/ML VIAL SQ SCH ×3 (16:51→21:09)
[2023-05-27] MEDS: INSULIN DETEMIR (LEVEMIR) 100 UNIT/ML SYR SQ SCH (16:53)
[2023-05-27 19:21] LABS: Carbon Dioxide <5 mmol/L (22-30)
[2023-05-27 20:13] LABS: Glucose,Whole Blood 251 mg/dL (70-110)
[2023-05-27 20:54] LABS: African American GFR (CKD) >90 (>60 ml/min/1.73 sqM); Anion Gap 7 mmol/L; Blood Urea Nitrogen 8 mg/dL (9-20); Calcium 8.4 mg/dL (8.4-10.2); Carbon Dioxide 26 mmol/L (22-30); Chloride 96 mmol/L (98-107); Glucose 202 mg/dL (74-99); Non-African American GFR(CKD) >90 (>60 ml/min/1.73 sqM); Sodium 129 mmol/L (137-145)
--- NOTE | 2023-05-28 01:40 | PN ---
PROGRESS NOTE CHIEF COMPLAINT: DKA. HISTORY OF PRESENT ILLNESS: This gentleman is doing better. Blood sugars are down and under 200. PHYSICAL EXAMINATION: VITAL SIGNS: Normal. CHEST: Clear. CARDIAC: Normal. IMPRESSION: 1. DKA. 2. Depression. PLAN: Transition to his basal bolus program and advance diet and activity. MMODL / IJN: [id number] /
[2023-05-28 03:57] LABS: Glucose,Whole Blood 64 mg/dL (70-110)
[2023-05-28 05:45] LABS: Anisocytosis Slight; Basophils % (A) 0 %; Eosinophils % (A) 0 %; HCT 30.5 % (39.0-53.0); HGB 10.2 gm/dL (13.0-17.5); Lymphocytes # (A) 3.1 k/uL (1.0-4.8); Lymphocytes % (A) 26 %; MCH 28.6 pg (25.0-35.0); MCHC 33.4 g/dL (31.0-37.0); MCV 85.7 fL (80.0-100.0); Mean Platelet Volume 6.8; Monocytes # (A) 0.8 k/uL (0-1.0); Monocytes % (A) 6 %; Neutrophils # (A) 7.9 k/uL (1.3-7.7); Neutrophils % (A) 66 %; Platelet Count 339 k/uL (150-450); RBC 3.57 m/uL (4.30-5.90); RDW 16.5 % (11.5-15.5)
[2023-05-28 06:06] LABS: African American GFR (CKD) >90 (>60 ml/min/1.73 sqM); Anion Gap 7 mmol/L; Blood Urea Nitrogen 7 mg/dL (9-20); Calcium 8.2 mg/dL (8.4-10.2); Carbon Dioxide 29 mmol/L (22-30); Chloride 97 mmol/L (98-107); Glucose 77 mg/dL (74-99); Non-African American GFR(CKD) >90 (>60 ml/min/1.73 sqM); Potassium 3.4 mmol/L (3.5-5.1); Sodium 133 mmol/L (137-145)
[2023-05-28 06:58] LABS: Glucose,Whole Blood 102 mg/dL (70-110)
[2023-05-28] MEDS: INSULIN ASPART (NovoLOG) 100 UNIT/ML VIAL SQ SCH ×7 (07:04→20:25)
[2023-05-28] MEDS: INSULIN DETEMIR (LEVEMIR) 100 UNIT/ML SYR SQ SCH (07:05)
[2023-05-28 11:07] LABS: Glucose,Whole Blood 72 mg/dL (70-110)
--- NOTE | 2023-05-28 11:29 | P.PN ---
Subjective Progress Note Date: 05/28/23 Principal diagnosis: Acute diabetic ketoacidosis 27-year-old male patient, coming in for DKA. This patient has been admitted 37 times for the year 2022 for DKA episodes. He is essentially noncompliant. He refuses to be placed to be taking care of and he does not take care of himself. His last admission was on 05/20/2023 and he was discharged on 05/21/2023 after being treated for the same. The patient came into the ED with hyperglycemia. He was found to be confused, blood sugars were reading high, usually has not taken his insulin. Denies using alcohol. In the emergency, the patient was found to be tachycardic, slightly hypotensive, complaining of nausea. Blood wo rk shows a serum bicarb of less than 5, high anion gap, but she was at 980, BUN is at 32 with a creatinine of 1.8. His potassium levels at 5.3. Phosphorus is 11.1 with a calcium level of 6.4. LFTs are normal. UA showed +4 glucose and ketones. As lactic acid level was at 5.3. He was started on IV fluids. He was given boluses a total of 2 and currently is on fluids with normal saline at the rate of 200 mL an hour and is also on insulin drip at 0.1 units per kilogram per hour. Patient was reevaluated today on 05/27/2023, remains in the ICU, remains on the DKA protocol. Patient is receiving D5 4 5 with 20 mEq of K at 1 50 mL per hour receiving insulin drip at 6.92 units per hour his anion gap is 15 bicarb is 18, clinically however the patient is feeling better denies any nausea vomiting abdominal pain or shortness of breath. Patient was reevaluated today on 05/28/2023, patient is doing great, his anion gap has completely closed, his labs today look great, patient is off insulin drip, he is now on sliding scale insulin is also on long-acting insulin/Levaquin and insulin and NovoLog insulin. Hence I plan to transfer the patient out of the ICU to regular medical floor. Sodium 133 potassium 3.4 chloride 97 bicarb 29 BUN 7 creatinine 0.70 and blood sugar is 102 Objective - Vital Signs Vital signs: Vital Signs Temp 98.5 F 05/27/23 20:00 Pulse 100 05/28/23 07:00 Resp 19 05/28/23 07:00 BP 112/75 05/28/23 07:00 Pulse Ox 98 05/28/23 07:00 FiO2 Intake & Output 05/27/23 05/28/23 05/28/23 18:59 06:59 18:59 Intake Total 2634.533 494 250 Output Total 3175 3300 Balance -540.467 -2806 250 Weight 69 kg 69.4 kg Intake: IV 1600 50 D5-0.45% NaCl with KCl 1600 50 20Meq/l 1,000 ml @ 50 mls /hr IV .Q20H [facility] Rx#: [id number] Intake, IV Titration 34.533 Amount Insulin Regular 100 unit 34.533 In Sodium Chloride 0.9% 100 ml @ 0.1 UNITS/KG/HR 6.185 mls/hr IV .[id number] [facility] Rx#:[id number] Oral 1000 444 250 Output: Urine 3175 3300 Other: Voiding Method Urinal Urinal Toilet Urinal - Exam Physical Exam: Revealed a 27-year-old white male in no distress Head: Atraumatic normocephalic HEENT:[Neck is supple.] [No neck masses.] [No thyromegaly.] [No JVD.] Chest: [Clear throughout, no crackles, no rhonchi, no wheezes.] Cardiac Exam: [Normal S1 and S2, no S3 gallop, no murmur.] Abdomen: [Soft, nontender, no megaly, no rebound, no guarding, normal bowel sounds.] Extremities: [No clubbing, no edema, no cyanosis.] Neurological Exam: [No focal neurologic deficit.] Alert oriented 3 Psychiatric: Normal mood affect and normal mental status examination In: No rashes - Labs CBC & Chem 7: 05/28/23 05:11 05/28/23 05:11 Labs: Abnormal Lab Results - Last 24 Hours (Table) 05/26/23 05/27/23 05/27/23 Range/Units 11:38 12:03 12:05 WBC (3.8-10.6) k/uL RBC (4.30-5.90) m/uL Hgb (13.0-17.5) gm/dL Hct (39.0-53.0) % RDW (11.5-15.5) % Neutrophils # (1.3-7.7) k/uL Sodium 129 L (137-145) mmol/L Potassium (3.5-5.1) mmol/L Chloride 95 L (98-107) mmol/L Carbon Dioxide <5 L* (22-30) mmol/L BUN (9-20) mg/dL Creatinine 0.62 L (0.66-1.25) mg/dL Glucose 124 H (74-99) mg/dL POC Glucose (mg/dL) 125 H (70-110) mg/dL Calcium 7.9 L (8.4-10.2) mg/dL Phosphorus 1.5 L (2.5-4.5) mg/dL Total Protein 5.4 L (6.3-8.2) g/dL Albumin 3.1 L (3.5-5.0) g/dL 05/27/23 05/27/23 05/27/23 Range/Units 13:11 14:31 15:07 WBC (3.8-10.6) k/uL RBC (4.30-5.90) m/uL Hgb (13.0-17.5) gm/dL Hct (39.0-53.0) % RDW (11.5-15.5) % Neutrophils # (1.3-7.7) k/uL Sodium (137-145) mmol/L Potassium (3.5-5.1) mmol/L Chloride (98-107) mmol/L Carbon Dioxide (22-30) mmol/L BUN (9-20) mg/dL Creatinine (0.66-1.25) mg/dL Glucose (74-99) mg/dL POC Glucose (mg/dL) 226 H 293 H 288 H (70-110) mg/dL Calcium (8.4-10.2) mg/dL Phosphorus (2.5-4.5) mg/dL Total Protein (6.3-8.2) g/dL Albumin (3.5-5.0) g/dL 05/27/23 05/27/23 05/27/23 Range/Units 16:42 20:11 20:15 WBC (3.8-10.6) k/uL RBC (4.30-5.90) m/uL Hgb (13.0-17.5) gm/dL Hct (39.0-53.0) % RDW (11.5-15.5) % Neutrophils # (1.3-7.7) k/uL Sodium 129 L (137-145) mmol/L Potassium (3.5-5.1) mmol/L Chloride 96 L (98-107) mmol/L Carbon Dioxide (22-30) mmol/L BUN 8 L (9-20) mg/dL Creatinine (0.66-1.25) mg/dL Glucose 202 H (74-99) mg/dL POC Glucose (mg/dL) 380 H 251 H (70-110) mg/dL Calcium (8.4-10.2) mg/dL Phosphorus (2.5-4.5) mg/dL Total Protein (6.3-8.2) g/dL Albumin (3.5-5.0) g/dL 05/28/23 05/28/23 05/28/23 Range/Units 03:56 05:11 05:11 WBC 12.0 H (3.8-10.6) k/uL RBC 3.57 L (4.30-5.90) m/uL Hgb 10.2 L (13.0-17.5) gm/dL Hct 30.5 L (39.0-53.0) % RDW 16.5 H (11.5-15.5) % Neutrophils # 7.9 H (1.3-7.7) k/uL Sodium 133 L (137-145) mmol/L Potassium 3.4 L (3.5-5.1) mmol/L Chloride 97 L (98-107) mmol/L Carbon Dioxide (22-30) mmol/L BUN 7 L (9-20) mg/dL Creatinine (0.66-1.25) mg/dL Glucose (74-99) mg/dL POC Glucose (mg/dL) 64 L (70-110) mg/dL Calcium 8.2 L (8.4-10.2) mg/dL Phosphorus (2.5-4.5) mg/dL Total Protein (6.3-8.2) g/dL Albumin (3.5-5.0) g/dL Assessment and Plan Assessment: Impression: Acute diabetic ketoacidosis, resolved Severe anion gap metabolic acidosis, resolved Lactic acidosis, resolved Severe leukocytosis, likely reactive, resolved Type 1 diabetes mellitus, with poor medication compliance. Diabetic neuropathy History of major depression Chronic marijuana use Chronic ongoing nicotine dependence Recommendation: Continue present supportive care measures Continue sliding scale coverage Transfer patient out of the ICU to regular medical floor We will follow Time with Patient: Less than 30
[2023-05-28] MEDS: PANTOPRAZOLE 40 MG/10 ML VIAL IV SCH (11:49)
[2023-05-28 13:52] LABS: Glucose,Whole Blood 41 mg/dL (70-110)
[2023-05-28 14:26] LABS: Glucose,Whole Blood 116 mg/dL (70-110)
--- NOTE | 2023-05-28 14:56 | CDI ---
Documentation Clarification Form Date: 05/28/2023 02:24:39 PM From: Serina Ingram RN, CCDS Email: [email or web address] Admit Date: 05/26/2023 08:59:00 AM Patient Name: Raul Marquez Visit Number: [id number] Discharge Date: ATTENTION: The Clinical Documentation Specialists (CDI) and [facility] Coding Staff appreciate your assistance in clarifying documentation. Please respond to the clarification below the line at the bottom and electronically sign. The CDI & [facility] Coding staff will review the response and follow-up if needed. Please note: Queries are made part of the Legal Health Record. If you have any questions, please contact the author of this message via ITS. Dr. Jenna Montoya Your patient had DKA, leukocytosis, SHANTEL, low body temperature and tachycardia. Based on this information and the findings below, is there an additional diagnosis that is clinically appropriate for this patient? History/Risk Factors: 37 admissions for DKA and noncompliance in 2022, IDDM, depression, anxiety, chronic marijuana and nicotine use. Admitted with DKA. Clinical Indicators: 05/26 VS: Temp 91.0-90.3-98.1, HR 46-102-128, RR 24-26, BP 88/46, pox 89-73-99 05/26 Labs: Glucose 980; WBC 50.3; VBG pH 6.81, pCO2 15, pH 6.81; Cr 1.86-1.85-1.14-0.73; lactic acid 5.3-2.8-1.4; acetone+ 05/26 Pulmonary: "Acute DKA, recurrent; lactic acidosis; severe leukocytosis; sinus tachycardia; acute kidney injury." 05/28 Pulmonary: "anion gap has completely closed, his labs today look great, patient is off insulin drip." Treatment: Insulin drip titrated 05/26-05/27; 2L IV 0.9 NS bolus; IV Sodium bicarbonate 100mL x1 on 05/26; Levemir 25 units SQ daily; Reglan 10mg IV x1 on 05/26; Zofran 4mg IVP x1 on 05/26 Is there an additional diagnosis that is clinically appropriate for this patient? [ x ] SIRS, due to DKA, with acute kidney injury and lactic acidosis [ ] Other, please specify [ ] Unable to determine SIRS Criteria: 2 or more of the following may indicate SIRS -Temperature < 96.8F(36C) or > 101.0F (38.3C) -Heart Rate > 90 bpm -Respiratory Rate > 20 breaths/min or PaCO2 < 32 mmHg -White Blood Cell Count > 12,000 or < 4,000 cells/mm3 or > 10% bands MTDD
[2023-05-28 16:15] LABS: Glucose,Whole Blood 78 mg/dL (70-110)
[2023-05-28 19:51] LABS: Glucose,Whole Blood 154 mg/dL (70-110)
--- NOTE | 2023-05-28 21:53 | HP ---
HISTORY AND PHYSICAL CHIEF COMPLAINT: DKA. HISTORY OF PRESENT ILLNESS: This is another admission for this 27-year-old white male, type 1 insulin-dependent diabetic, who was frequently in the emergency room in the hospital. He comes back in with a blood sugar of around 900 and pH in the range of 6.8. Remainder of his history is unremarkable and identical to all the other times he has come to the emergency room. He is noncompliant, does not take his medications and deliberately comes in . PHYSICAL EXAMINATION: VITAL SIGNS: Pulse is 136 with respirations of 39. GENERAL: He is weak, pale and lethargic. He is dehydrated. HEAD, EARS, EYES, NOSE, MOUTH AND THROAT: Normal except for his mucous membranes. CHEST: Clear. CARDIAC: Normal with sinus tachycardia. ABDOMEN: Flat, soft, nontender. EXTREMITIES: Normal. NEUROLOGICAL: He is lethargic. IMPRESSION: 1. Diabetic ketoacidosis. 2. Depression. PLAN: Management of his diabetic ketoacidosis in ICU. MMODL / IJN: [id number] /
--- NOTE | 2023-05-28 22:23 | PN ---
PROGRESS NOTE DATE OF SERVICE: 05/28/2023 CHIEF COMPLAINT: DKA. HISTORY OF PRESENT ILLNESS: This gentleman is doing better and gap is closed, but he is still nauseated. PHYSICAL EXAMINATION: CHEST: Clear. CARDIAC: Normal. ABDOMEN: Flat, soft, nontender. IMPRESSION: 1. Diabetic ketoacidosis. 2. Dehydration. 3. Nausea. 4. Depression. PLAN: Hold for 1 more day and probably discharge tomorrow. MMODL / IJN: [id number] /
[2023-05-29 02:06] LABS: Glucose,Whole Blood 172 mg/dL (70-110)
[2023-05-29 07:55] LABS: Glucose,Whole Blood 141 mg/dL (70-110)
[2023-05-29] MEDS: INSULIN ASPART (NovoLOG) 100 UNIT/ML VIAL SQ SCH ×7 (08:05→21:10)
[2023-05-29] MEDS: INSULIN DETEMIR (LEVEMIR) 100 UNIT/ML SYR SQ SCH (08:35)
[2023-05-29] MEDS: PANTOPRAZOLE 40 MG/10 ML VIAL IV SCH ×2 (08:36→08:38)
[2023-05-29 12:34] LABS: Glucose,Whole Blood 94 mg/dL (70-110)
--- NOTE | 2023-05-29 17:25 | P.PN ---
Subjective Progress Note Date: 05/29/23 Principal diagnosis: Acute diabetic ketoacidosis 27-year-old male patient, coming in for DKA. This patient has been admitted 37 times for the year 2022 for DKA episodes. He is essentially noncompliant. He refuses to be placed to be taking care of and he does not take care of himself. His last admission was on 05/20/2023 and he was discharged on 05/21/2023 after being treated for the same. The patient came into the ED with hyperglycemia. He was found to be confused, blood sugars were reading high, usually has not taken his insulin. Denies using alcohol. In the emergency, the patient was found to be tachycardic, slightly hypotensive, complaining of nausea. Blood wo rk shows a serum bicarb of less than 5, high anion gap, but she was at 980, BUN is at 32 with a creatinine of 1.8. His potassium levels at 5.3. Phosphorus is 11.1 with a calcium level of 6.4. LFTs are normal. UA showed +4 glucose and ketones. As lactic acid level was at 5.3. He was started on IV fluids. He was given boluses a total of 2 and currently is on fluids with normal saline at the rate of 200 mL an hour and is also on insulin drip at 0.1 units per kilogram per hour. Patient was reevaluated today on 05/27/2023, remains in the ICU, remains on the DKA protocol. Patient is receiving D5 4 5 with 20 mEq of K at 1 50 mL per hour receiving insulin drip at 6.92 units per hour his anion gap is 15 bicarb is 18, clinically however the patient is feeling better denies any nausea vomiting abdominal pain or shortness of breath. Patient was reevaluated today on 05/28/2023, patient is doing great, his anion gap has completely closed, his labs today look great, patient is off insulin drip, he is now on sliding scale insulin is also on long-acting insulin/Levaquin and insulin and NovoLog insulin. Hence I plan to transfer the patient out of the ICU to regular medical floor. Sodium 133 potassium 3.4 chloride 97 bicarb 29 BUN 7 creatinine 0.70 and blood sugar is 102 Reevaluated today on 05/29/23, patient is doing great. Not in any distress, however he is complaining of the room being cold and could not be set at the warmer level. Blood sugar seems to be under control. It is actually 94 this morning Objective - Vital Signs Vital signs: Vital Signs Temp 98 F 05/29/23 12:53 Pulse 111 H 05/29/23 12:53 Resp 17 05/29/23 12:53 BP 96/68 05/29/23 12:53 Pulse Ox 100 05/29/23 12:53 FiO2 Intake & Output 05/28/23 05/29/23 05/29/23 18:59 06:59 18:59 Intake Total 500 500 Balance 500 500 Intake: Oral 500 500 Other: Voiding Method Toilet Toilet Toilet Urinal - Exam Physical Exam: Revealed a 27-year-old white male in no distress Head: Atraumatic normocephalic HEENT:[Neck is supple.] [No neck masses.] [No thyromegaly.] [No JVD.] Chest: [Clear throughout, no crackles, no rhonchi, no wheezes.] Cardiac Exam: [Normal S1 and S2, no S3 gallop, no murmur.] Abdomen: [Soft, nontender, no megaly, no rebound, no guarding, normal bowel sounds.] Extremities: [No clubbing, no edema, no cyanosis.] Neurological Exam: [No focal neurologic deficit.] Alert oriented 3 Psychiatric: Normal mood affect and normal mental status examination In: No rashes - Labs CBC & Chem 7: 05/28/23 05:11 05/28/23 05:11 Labs: Abnormal Lab Results - Last 24 Hours (Table) 05/28/23 05/29/23 05/29/23 Range/Units 19:49 02:04 07:12 POC Glucose (mg/dL) 154 H 172 H 141 H (70-110) mg/dL Assessment and Plan Assessment: Impression: Acute diabetic ketoacidosis, resolved Severe anion gap metabolic acidosis, resolved Lactic acidosis, resolved Severe leukocytosis, likely reactive, resolved Type 1 diabetes mellitus, with poor medication compliance. Diabetic neuropathy History of major depression Chronic marijuana use Chronic ongoing nicotine dependence Recommendation: Continue present supportive care measures Continue sliding scale coverage Consider discharge planning in the next 24 hours We will follow Time with Patient: Less than 30
[2023-05-29 17:29] LABS: Glucose,Whole Blood 90 mg/dL (70-110)
[2023-05-29 20:44] LABS: Glucose,Whole Blood 87 mg/dL (70-110)
[2023-05-30 02:22] LABS: Glucose,Whole Blood 216 mg/dL (70-110)
[2023-05-30 02:52] VITALS: RESP 17
[2023-05-30 07:50] LABS: Glucose,Whole Blood 314 mg/dL (70-110)
[2023-05-30] MEDS: INSULIN DETEMIR (LEVEMIR) 100 UNIT/ML SYR SQ SCH (08:32)
[2023-05-30] MEDS: INSULIN ASPART (NovoLOG) 100 UNIT/ML VIAL SQ SCH ×5 (08:33→12:55)
[2023-05-30] MEDS: PANTOPRAZOLE 40 MG/10 ML VIAL IV SCH (08:34)
[2023-05-30 08:42] VITALS: BP 126/91; PULSE 124; TEMP 97.7
[2023-05-30] MEDS: ONDANSETRON 4 MG/2 ML VIAL IVP PRN (11:49)
[2023-05-30 12:07] LABS: Glucose,Whole Blood 230 mg/dL (70-110)
--- NOTE | 2023-05-30 14:10 | P.PN ---
Subjective Progress Note Date: 05/30/23 27-year-old male patient, coming in for DKA. This patient has been admitted 37 times for the year 2022 for DKA episodes. He is essentially noncompliant. He refuses to be placed to be taking care of and he does not take care of himself. His last admission was on 05/20/2023 and he was discharged on 05/21/2023 after being treated for the same. The patient came into the ED with hyperglycemia. He was found to be confused, blood sugars were reading high, usually has not taken his insulin. Denies using alcohol. In the emergency, the patient was found to be tachycardic, slightly hypotensive, complaining of nausea. Blood work shows a serum bicarb of less than 5, high anion gap, but she was at 980, BUN is at 32 with a creatinine of 1.8. His potassium levels at 5.3. Phosphorus is 11.1 with a calcium level of 6.4. LFTs are normal. UA showed +4 glucose and ketones. As lactic acid level was at 5.3. He was started on IV fluids. He was given boluses a total of 2 and currently is on fluids with normal saline at the rate of 200 mL an hour and is also on insulin drip at 0.1 units per kilogram per hour. Patient was reevaluated today on 05/27/2023, remains in the ICU, remains on the DKA protocol. Patient is receiving D5 4 5 with 20 mEq of K at 1 50 mL per hour receiving insulin drip at 6.92 units per hour his anion gap is 15 bicarb is 18, clinically however the patient is feeling better denies any nausea vomiting abdominal pain or shortness of breath. Patient was reevaluated today on 05/28/2023, patient is doing great, his anion gap has completely closed, his labs today look great, patient is off insulin drip, he is now on sliding scale insulin is also on long-acting insulin/Levaquin and insulin and NovoLog insulin. Hence I plan to transfer the patient out of the ICU to regular medical floor. Sodium 133 potassium 3.4 chloride 97 bicarb 29 BUN 7 creatinine 0.70 and blood sugar is 102 Reevaluated today on 05/29/23, patient is doing great. Not in any distress, however he is complaining of the room being cold and could not be set at the warmer level. Blood sugar seems to be under control. It is actually 94 this morning The patient is seen today 05/30/2023 in follow-up on the regular medical floor. He is resting comfortably in bed. Awake and alert in no acute distress. Maintaining good O2 saturations in the 90s on room air. Glucose 230. He is currently on Levemir 25 mg daily along with a NovoLog sliding scale. Remains on Protonix. Objective - Vital Signs Vital signs: Vital Signs Temp 97.7 F 05/30/23 07:48 Pulse 124 H 05/30/23 07:48 Resp 17 05/30/23 07:48 BP 126/91 05/30/23 07:48 Pulse Ox 92 L 05/30/23 02:00 FiO2 Intake & Output 05/29/23 05/30/23 05/30/23 18:59 06:59 18:59 Intake Total 0 240 Balance 0 240 Intake: IV 0 D5-0.45% NaCl with KCl 0 20Meq/l 1,000 ml @ 50 mls /hr IV .Q20H YAEL Rx#: [id number] Oral 240 Other: Voiding Method Toilet Toilet Toilet # Voids 5 3 # Bowel Movements 1 - Exam GENERAL EXAM: Alert, active, 27-year-old male, on room air, comfortable in no apparent distress. HEAD: Normocephalic. EYES: Normal reaction of pupils, equal size. NOSE: Clear with pink turbinates. THROAT: No erythema or exudates. NECK: No masses, no JVD. CHEST: No chest wall deformity. LUNGS: Equal air entry with no crackles, wheeze, rhonchi or dullness. CVS: S1 and S2 normal with no audible murmur, regular rhythm. ABDOMEN: No hepatosplenomegaly, normal bowel sounds, no guarding or rigidity. SPINE: No scoliosis or deformity SKIN: No rashes CENTRAL NERVOUS SYSTEM: No focal deficits, tone is normal in all 4 extremities. EXTREMITIES: There is no peripheral edema. No clubbing, no cyanosis. Peripheral pulses are intact. - Labs CBC & Chem 7: 05/28/23 05:11 05/28/23 05:11 Labs: Abnormal Lab Results - Last 24 Hours (Table) 05/30/23 05/30/23 05/30/23 Range/Units 02:16 07:48 12:06 POC Glucose (mg/dL) 216 H 314 H 230 H (70-110) mg/dL Assessment and Plan Assessment: Acute diabetic ketoacidosis, recurrent. The patient comes in the first day of the year 2023 and this is his first admission for the current year. He has been admitted 37 for the year 2022. This patient is essentially noncompliant and he was discharged from the hospital on 05/21/2023, after being treated for DKA. He was discharged home on long-acting Levemir 30 units along with NovoLog 7 units with meals and a sliding scale coverage Severe anion gap metabolic acidosis, secondary to above, recovered Lactic acidosis, recovered Severe leukocytosis, likely reactive, improved Sinus tachycardia Severe dehydration improved Acute kidney injury, prerenal, secondary to above, improved Hyperphosphatemia, recovered Type 1 diabetes mellitus, with poor medication compliance. Diabetic neuropathy History of major depression Chronic marijuana use Chronic ongoing nicotine dependence Plan: The patient was seen and evaluated Medications reviewed Cleared for discharge from the pulmonary/critical care standpoint Again educated regarding importance of medication compliance Again educated regarding the importance of following closely with primary care and geological technical officer I have personally seen and examined the patient, performed the documentation and the assessment and plan as written. Number of minutes spent on the visit: 10.
--- NOTE | 2023-05-31 06:47 | DS ---
DISCHARGE SUMMARY CHIEF COMPLAINT: DKA. HISTORY OF PRESENT ILLNESS AND PHYSICAL EXAM: Details of this man's history and physical can be found in the initial workup. LABORATORY STUDIES: While he was in the hospital, he had laboratory studies, details of which can be found in the laboratory section of his chart. COURSE IN THE HOSPITAL: After admission, he was placed on bedrest, started on intravenous fluids, and DKA protocol. He became more awake and alert in the next several days. He was doing well and numbers are improved. It was felt he could be discharged on the . He will go home on his usual activity, diet, medication. FINAL DIAGNOSES: 1. Diabetic ketoacidosis. 2. Depression. OPERATIONS: None. CONSULTATIONS: None. MMODL / IJN: [id number] /
--- NOTE | 2023-05-31 07:23 | PN ---
PROGRESS NOTE DATE OF SERVICE: 05/29/2023 CHIEF COMPLAINT: DKA, dehydration, nausea and vomiting. HISTORY OF PRESENT ILLNESS: This gentleman is a little bit more alert. Chemistries are improving. He is still slightly nauseated. PHYSICAL EXAMINATION: ABDOMEN: Soft and nontender. CHEST: Clear. VITAL SIGNS: Normal. IMPRESSION: 1. Diabetic ketoacidosis. 2. Peripheral neuropathy. 3. Depression. 4. Uncontrolled type 1 insulin-dependent diabetes. PLAN: Continue with IV fluids and slowly advance diet. He can probably go home tomorrow. MMODL / IJN: [id number] /
== END 2023-05-30 15:08 | disposition home or self-care (01) | DRG 420 ==
LOC: EC 07:11 → 2SICU 08:59 → 5NMEDONC 05-28 17:24
PROVIDERS: ADMIT Family Medicine; ATTEND Family Medicine
DX: E10.10 Type 1 diabetes mellitus with ketoacidosis without coma (principal); E10.40 Type 1 diabetes mellitus with diabetic neuropathy, unspecified; E83.39 Other disorders of phosphorus metabolism; E86.0 Dehydration; F17.210 Nicotine dependence, cigarettes, uncomplicated; R00.0 Tachycardia, unspecified; I95.9 Hypotension, unspecified; F41.9 Anxiety disorder, unspecified; L30.9 Dermatitis, unspecified; F32.A Depression, unspecified; N17.9 Acute kidney failure, unspecified; Z79.4 Long term (current) use of insulin; Z79.899 Other long term (current) drug therapy; Z82.49 Family history of ischemic heart disease and other diseases of the circulatory system; Z91.148 Patient's other noncompliance with medication regimen for other reason; Z91.199 Patient's noncompliance with other medical treatment and regimen due to unspecified reason; R65.11 Systemic inflammatory response syndrome (SIRS) of non-infectious origin with acute organ dysfunction
CPT/HCPCS: 36415; 80048; 80051; 80053; 81003; 82009; 82565; 82803; 82947; 83605; 83690; 83735; 84100; 84520; 85025; 93005; 96361; 96374; 96375; 99291

== ENCOUNTER 2023-06-12 17:36 | Inpatient (IN) | payer OTHER ==
[2023-06-12] MEDS ORDERED: SODIUM CHLORIDE 0.9% 1,000 ML IV ONE (17:49)
[2023-06-12 18:34] LABS: Appearance,Urine Clear (Clear); Bilirubin,Urine Negative (Negative); Blood,Urine Negative (Negative); Color,Urine Colorless; Glucose,Urine (UA) 4+ (Negative); Leukocyte Esterase,Urine Negative (Negative); Nitrite,Urine Negative (Negative); Protein,Urine Trace (Negative); Specific Gravity,Urine 1.022 (1.001-1.035); Urobilinogen,Urine <2.0 mg/dL (<2.0)
[2023-06-12 18:34] LABS: VBG PH 7.15 (7.31-7.41)
[2023-06-12 18:36] LABS: Basophils # (A) 0.1 k/uL (0-0.2); Basophils % (A) 1 %; Eosinophils # (A) 0.1 k/uL (0-0.7); Eosinophils % (A) 0 %; HCT 38.6 % (39.0-53.0); HGB 11.9 gm/dL (13.0-17.5); Hypochromasia Marked; Lymphocytes # (A) 2.1 k/uL (1.0-4.8); Lymphocytes % (A) 15 %; MCH 28.7 pg (25.0-35.0); MCHC 30.8 g/dL (31.0-37.0); Mean Platelet Volume 7.4; Monocytes # (A) 0.4 k/uL (0-1.0); Monocytes % (A) 3 %; Neutrophils # (A) 10.8 k/uL (1.3-7.7); Neutrophils % (A) 78 %; Platelet Count 553 k/uL (150-450); RBC 4.14 m/uL (4.30-5.90); RDW 15.7 % (11.5-15.5); WBC 13.9 k/uL (3.8-10.6)
[2023-06-12 18:40] LABS: Ketones,Urine 4+ (Negative)
[2023-06-12 18:41] LABS: MCV 93.1 fL (80.0-100.0)
--- NOTE | 2023-06-12 18:42 | ED ---
General Adult HPI - General Chief complaint: Recheck/Abnormal Lab/Rx Stated complaint: Hyperglycemia Time Seen by Provider: 06/12/23 17:40 Source: patient, EMS, RN notes reviewed, old records reviewed Mode of arrival: EMS Limitations: no limitations - History of Present Illness Initial comments: 27-year-old male with nausea vomiting, history of type 1 diabetes. Patient is noncompliant with medication. He also reports diarrhea. No central chest pain. No fever. Blood sugar during transport was significantly elevated. - Related Data Home Medications Medication Instructions Recorded Confirmed Insulin Detemir (Levemir) [Levemir] 30 unit SQ HS 03/07/23 06/12/23 Ergocalciferol [Vitamin D2 (1250 1,250 mcg PO Q30D 04/29/23 06/12/23 Mcg = 72626 Iu)] Famotidine [Pepcid] 20 mg PO BID 04/29/23 06/12/23 Gabapentin 600 mg PO TID 04/29/23 06/12/23 Insulin Lispro [Insulin Lispro 7 units SQ AC-TID 04/29/23 06/12/23 Kwikpen U-100] Losartan Potassium 50 mg PO DAILY 04/29/23 06/12/23 Mirtazapine 7.5 mg PO HS 04/29/23 06/12/23 Allergies Allergy/AdvReac Type Severity Reaction Status Date / Time No Known Allergies Allergy Verified 05/26/23 10:33 Review of Systems ROS Statement: Those systems with pertinent positive or pertinent negative responses have been documented in the HPI. ROS Other: All systems not noted in ROS Statement are negative. Past Medical History Past Medical History: Asthma, Diabetes Mellitus, Neurologic Disorder, Skin Disorder Additional Past Medical History / Comment(s): IDDM type I, neuropathy bilateral feet, DKA, eczema. History of Any Multi-Drug Resistant Organisms: None Reported Past Surgical History: Adenoidectomy Additional Past Surgical History / Comment(s): 2003 Recent EGD- gastritis Past Anesthesia/Blood Transfusion Reactions: No Reported Reaction Past Psychological History: Anxiety, Depression Smoking Status: Former smoker - Past Family History Mother Family Medical History: CVA/TIA Additional Family Medical History / Comment(s): TIA Father Family Medical History: Hyperlipidemia, Hypertension Additional Family Medical History / Comment(s): . General Exam Limitations: no limitations General appearance: alert, in no apparent distress Head exam: Present: atraumatic, normocephalic Eye exam: Present: normal appearance, PERRL Respiratory exam: Present: other (Tachypneic). Absent: respiratory distress, wheezes Cardiovascular Exam: Present: normal rhythm, tachycardia GI/Abdominal exam: Present: soft. Absent: distended, tenderness Extremities exam: Present: normal inspection Neurological exam: Present: alert Psychiatric exam: Present: normal affect, normal mood Skin exam: Present: warm, dry, intact Course Vital Signs 06/12/23 17:39 Pulse Rate 128 H Respiratory 18 Rate Blood Pressure 103/55 O2 Sat by Pulse 100 Oximetry - Reevaluation(s) Reevaluation #1: 06/12/23 18:40 Patient refused EKG Medical Decision Making - Medical Decision Making Was pt. sent in by a medical professional or institution (, PA, SECURITIES SETTLEMENT PROCESSOR, urgent care, hospital, or shelter...) When possible be specific @ -No Did you speak to anyone other than the patient for history (EMS, parent, family, police, friend...)? What history was obtained from this source @ -No Did you review nursing and triage notes (agree or disagree)? Why? @ -I reviewed and agree with nursing and triage notes Were old charts reviewed (outside hosp., previous admission, EMS record, old EKG, old radiological studies, urgent care reports/EKG's, shelter records)? Report findings @ -No old charts were reviewed Differential Diagnosis (chest pain, altered mental status, abdominal pain women, abdominal pain men, vaginal bleeding, weakness, fever, dyspnea, syncope, headache, dizziness, GI bleed, back pain, seizure, CVA, palpatations, mental health, musculoskeletal)? @ Differential Weakness: Hypoglycemia, shock, sepsis, hyponatremia, anemia, infection, ME, ETOH, adverse medicine reaction, overdose, stroke, this is not meant to be an all-inclusive list. EKG interpreted by me (3pts min.). @ -As above X-rays interpreted by me (1pt min.). @ -None done CT interpreted by me (1pt min.). @ -None done U/S interpreted by me (1pt. min.). @ -None done What testing was considered but not performed or refused? (CT, X-rays, U/S, labs)? Why? @ -None What meds were considered but not given or refused? Why? @ -None Did you discuss the management of the patient with other professionals (professionals i.e. , PA, SECURITIES SETTLEMENT PROCESSOR, lab, RT, psych nurse, outreach and education social worker, cornice maker, teacher, fisheries enforcement officer, spring encaser)? Give summary @ Dr. Valenzuela Was smoking cessation discussed for >3mins.? @ -No Was critical care preformed (if so, how long)? @ Yes, 35 minutes Were there social determinants of health that impacted care today? How? (Homelessness, low income, unemployed, alcoholism, drug addiction, transportation, low edu. Level, literacy, decrease access to med. care, [facility], rehab)? @ -No Was there de-escalation of care discussed even if they declined (Discuss DNR or withdrawal of care, Hospice)? DNR status @ -No What co-morbidities impacted this encounter? (DM, HTN, Smoking, COPD, CAD, Cancer, CVA, ARF, Chemo, Hep., AIDS, mental health diagnosis, sleep apnea, morbid obesity)? @ Type I diabetic Was patient admitted / discharged? Hospital course, mention meds given and route, prescriptions, significant lab abnormalities, going to OR and other pertinent info. @ -[27-year-old male with type 1 diabetes, noncompliant with medication. Patient presents tachypneic with nausea vomiting, tachycardic, and hyperglycem ia. He is in DKA with a pH is 7.15. CO2 is nondetectable. He has a large anion gap. His sugar is 512. He started on insulin drip and normal saline. He will be admitted to monitored bed for treatment of diabetic ketoacidosis. Undiagnosed new problem with uncertain prognosis? @ -No Drug Therapy requiring intensive monitoring for toxicity (Heparin, Nitro, Insulin, Cardizem)? @ -No Were any procedures done? @ -No Diagnosis/symptom? @ -DKA Acute, or Chronic, or Acute on Chronic? @ Acute on chronic Uncomplicated (without systemic symptoms) or Complicated (systemic symptoms)? @ -[Complicated Side effects of treatment? @ -No Exacerbation, Progression, or Severe Exacerbation? @ -No Poses a threat to life or bodily function? How? (Chest pain, USA, ME, pneumonia, PE, COPD, DKA, ARF, appy, cholecystitis, CVA, Diverticulitis, Homicidal, Suicidal, threat to staff... and all critical care pts) @ Yes, DKA - Lab Data Result diagrams: 06/12/23 18:21 06/12/23 18:21 Lab Results 06/12/23 06/12/23 06/12/23 Range/Units 18:21 18:21 18:21 WBC 13.9 H (3.8-10.6) k/uL RBC 4.14 L (4.30-5.90) m/uL Hgb 11.9 L (13.0-17.5) gm/dL Hct 38.6 L (39.0-53.0) % MCV 93.1 D (80.0-100.0) fL MCH 28.7 (25.0-35.0) pg MCHC 30.8 L (31.0-37.0) g/dL RDW 15.7 H (11.5-15.5) % Plt Count 553 H (150-450) k/uL MPV 7.4 Neutrophils % 78 % Lymphocytes % 15 % Monocytes % 3 % Eosinophils % 0 % Basophils % 1 % Neutrophils # 10.8 H (1.3-7.7) k/uL Lymphocytes # 2.1 (1.0-4.8) k/uL Monocytes # 0.4 (0-1.0) k/uL Eosinophils # 0.1 (0-0.7) k/uL Basophils # 0.1 (0-0.2) k/uL Hypochromasia Marked VBG pH (7.31-7.41) VBG pCO2 (37-51) mmHg VBG HCO3 (24-28) mmol/L Sodium 139 (137-145) mmol/L Potassium 5.5 H (3.5-5.1) mmol/L Chloride 107 (98-107) mmol/L Carbon Dioxide <5 L* (22-30) mmol/L Anion Gap mmol/L BUN 22 H (9-20) mg/dL Creatinine 0.85 (0.66-1.25) mg/dL Est GFR (CKD-EPI)AfAm >90 (>60 ml/min/1.73 sqM) Est GFR (CKD-EPI)NonAf >90 (>60 ml/min/1.73 sqM) Glucose 512 H* (74-99) mg/dL Plasma Lactic Acid Len 2.1 H* (0.7-2.0) mmol/L Calcium 9.0 (8.4-10.2) mg/dL Magnesium 2.1 (1.6-2.3) mg/dL Total Bilirubin 0.5 (0.2-1.3) mg/dL AST 19 (17-59) U/L ALT 21 (4-49) U/L Alkaline Phosphatase 116 (38-126) U/L Total Protein 6.7 (6.3-8.2) g/dL Albumin 4.3 (3.5-5.0) g/dL Urine Color Urine Appearance (Clear) Urine pH (5.0-8.0) Ur Specific Blair (1.001-1.035) Urine Protein (Negative) Urine Glucose (UA) (Negative) Urine Ketones (Negative) Urine Blood (Negative) Urine Nitrite (Negative) Urine Bilirubin (Negative) Urine Urobilinogen (<2.0) mg/dL Ur Leukocyte Esterase (Negative) Acetone, Qual Positive (Negative) 06/12/23 06/12/23 Range/Units 18:21 18:27 WBC (3.8-10.6) k/uL RBC (4.30-5.90) m/uL Hgb (13.0-17.5) gm/dL Hct (39.0-53.0) % MCV (80.0-100.0) fL MCH (25.0-35.0) pg MCHC (31.0-37.0) g/dL RDW (11.5-15.5) % Plt Count (150-450) k/uL MPV Neutrophils % % Lymphocytes % % Monocytes % % Eosinophils % % Basophils % % Neutrophils # (1.3-7.7) k/uL Lymphocytes # (1.0-4.8) k/uL Monocytes # (0-1.0) k/uL Eosinophils # (0-0.7) k/uL Basophils # (0-0.2) k/uL Hypochromasia VBG pH 7.15 L* (7.31-7.41) VBG pCO2 20 L (37-51) mmHg VBG HCO3 7 L* (24-28) mmol/L Sodium (137-145) mmol/L Potassium (3.5-5.1) mmol/L Chloride (98-107) mmol/L Carbon Dioxide (22-30) mmol/L Anion Gap mmol/L BUN (9-20) mg/dL Creatinine (0.66-1.25) mg/dL Est GFR (CKD-EPI)AfAm (>60 ml/min/1.73 sqM) Est GFR (CKD-EPI)NonAf (>60 ml/min/1.73 sqM) Glucose (74-99) mg/dL Plasma Lactic Acid Len (0.7-2.0) mmol/L Calcium (8.4-10.2) mg/dL Magnesium (1.6-2.3) mg/dL Total Bilirubin (0.2-1.3) mg/dL AST (17-59) U/L ALT (4-49) U/L Alkaline Phosphatase (38-126) U/L Total Protein (6.3-8.2) g/dL Albumin (3.5-5.0) g/dL Urine Color Colorless Urine Appearance Clear (Clear) Urine pH 5.0 (5.0-8.0) Ur Specific Blair 1.022 (1.001-1.035) Urine Protein Trace H (Negative) Urine Glucose (UA) 4+ H (Negative) Urine Ketones 4+ H (Negative) Urine Blood Negative (Negative) Urine Nitrite Negative (Negative) Urine Bilirubin Negative (Negative) Urine Urobilinogen <2.0 (<2.0) mg/dL Ur Leukocyte Esterase Negative (Negative) Acetone, Qual (Negative) Critical Care Time Critical Care Time: Yes Total Critical Care Time: 35 Disposition Clinical Impression: Poorly controlled type 1 diabetes mellitus, DKA (diabetic ketoacidoses) Disposition: ADMITTED IP TO THIS [facility] Condition: Serious Is patient prescribed a controlled substance at d/c from ED?: No Referrals: Brown Valenzuela MD [Primary Care Provider] - 1-2 days Time of Disposition: 19:13
[2023-06-12 18:50] LABS: ALT 21 U/L (4-49); AST 19 U/L (17-59); African American GFR (CKD) >90 (>60 ml/min/1.73 sqM); Albumin 4.3 g/dL (3.5-5.0); Alkaline Phosphatase 116 U/L (38-126); Blood Urea Nitrogen 22 mg/dL (9-20); Chloride 107 mmol/L (98-107); Magnesium 2.1 mg/dL (1.6-2.3); Non-African American GFR(CKD) >90 (>60 ml/min/1.73 sqM); Potassium 5.5 mmol/L (3.5-5.1); Sodium 139 mmol/L (137-145); Total Bilirubin 0.5 mg/dL (0.2-1.3); Total Protein 6.7 g/dL (6.3-8.2)
[2023-06-12 18:54] LABS: Glucose 512 mg/dL (74-99)
[2023-06-12 18:55] LABS: Carbon Dioxide <5 mmol/L (22-30)
[2023-06-12] MEDS ORDERED: INSULIN REGULAR BOLUS (FROM DRIP BAG) IV ONE (19:09)
[2023-06-12] MEDS: SODIUM CHLORIDE 0.9% 1,000 ML IV SCH (19:48)
[2023-06-12 20:14] LABS: Glucose,Whole Blood 508 mg/dL (70-110)
[2023-06-12] MEDS: INSULIN REGULAR 100 UNIT in SODIUM CHLORIDE 0.9% 100 ML IV SCH (20:14)
--- NOTE | 2023-06-12 21:46 | HP ---
HISTORY AND PHYSICAL CHIEF COMPLAINT: Diabetic ketoacidosis. HISTORY OF PRESENT ILLNESS: This is another admission out of many for this young man who is noncompliant with his type 1 insulin-dependent diabetes, came in again in ketoacidosis. REVIEW OF SYSTEMS: He is not comatose this time and he is not vomiting. He has no other complaints. Past medical history, family history, and personal and social histories are otherwise unchanged. PHYSICAL EXAMINATION: VITAL SIGNS: Normal. HEENT: Head, ears, eyes, nose, mouth, are normal. NECK: Normal. CHEST: Clear. CARDIAC: Sinus rhythm with no murmurs. ABDOMEN: Flat, soft, nontender. EXTREMITIES: Normal. NEUROLOGICAL: He is intact. HOSPITAL DIAGNOSES: 1. Diabetic ketoacidosis. 2. Depression. 3. Noncompliant patient. PLAN: 1. Bedrest. 2. IV fluids. 3. DKA protocol. MMBIANCA / TRAMN: [id number] /
[2023-06-12 22:16] LABS: Glucose,Whole Blood 337 mg/dL (70-110)
[2023-06-12 22:24] LABS: African American GFR (CKD) >90 (>60 ml/min/1.73 sqM); Blood Urea Nitrogen 22 mg/dL (9-20); Chloride 112 mmol/L (98-107); Glucose 393 mg/dL (74-99); Non-African American GFR(CKD) >90 (>60 ml/min/1.73 sqM); Phosphorus 4.3 mg/dL (2.5-4.5); Potassium 4.9 mmol/L (3.5-5.1); Sodium 143 mmol/L (137-145)
[2023-06-12 22:26] LABS: Carbon Dioxide <5 mmol/L (22-30)
[2023-06-12] MEDS: ONDANSETRON 4 MG/2 ML VIAL IVP PRN (23:17)
[2023-06-12 23:26] LABS: Glucose,Whole Blood 283 mg/dL (70-110)
[2023-06-13] MEDS: D5-0.45% NACL WITH KCL 20MEQ/L 1,000 ML IV SCH ×3 (00:01→13:02)
[2023-06-13 00:17] LABS: Glucose,Whole Blood 208 mg/dL (70-110)
[2023-06-13 01:29] LABS: Glucose,Whole Blood 183 mg/dL (70-110)
[2023-06-13] MEDS: SODIUM CHLORIDE 0.9% 1,000 ML IV SCH ×5 (01:30→20:18)
[2023-06-13 02:01] LABS: African American GFR (CKD) >90 (>60 ml/min/1.73 sqM); Anion Gap 14 mmol/L; Blood Urea Nitrogen 19 mg/dL (9-20); Carbon Dioxide 13 mmol/L (22-30); Chloride 113 mmol/L (98-107); Glucose 188 mg/dL (74-99); Non-African American GFR(CKD) >90 (>60 ml/min/1.73 sqM); Potassium 4.6 mmol/L (3.5-5.1); Sodium 140 mmol/L (137-145)
[2023-06-13 02:43] LABS: Glucose,Whole Blood 174 mg/dL (70-110)
[2023-06-13 03:49] LABS: Glucose,Whole Blood 152 mg/dL (70-110)
[2023-06-13 04:50] LABS: Glucose,Whole Blood 124 mg/dL (70-110)
[2023-06-13 06:09] LABS: Glucose,Whole Blood 98 mg/dL (70-110)
[2023-06-13] MEDS: INSULIN REGULAR 100 UNIT in SODIUM CHLORIDE 0.9% 100 ML IV SCH (06:10)
[2023-06-13] MEDS: ONDANSETRON 4 MG/2 ML VIAL IVP PRN (06:51)
[2023-06-13 07:15] LABS: Glucose,Whole Blood 122 mg/dL (70-110)
[2023-06-13 07:17] LABS: Glucose,Whole Blood 97 mg/dL (70-110)
[2023-06-13 08:15] LABS: Glucose,Whole Blood 137 mg/dL (70-110)
[2023-06-13 09:27] LABS: Glucose,Whole Blood 198 mg/dL (70-110)
[2023-06-13 10:26] LABS: Glucose,Whole Blood 248 mg/dL (70-110)
[2023-06-13 11:19] VITALS: BMI 15.0
[2023-06-13 11:30] LABS: Glucose,Whole Blood 250 mg/dL (70-110)
[2023-06-13 12:07] LABS: African American GFR (CKD) >90 (>60 ml/min/1.73 sqM); Anion Gap 14 mmol/L; Blood Urea Nitrogen 13 mg/dL (9-20); Carbon Dioxide 11 mmol/L (22-30); Chloride 104 mmol/L (98-107); Glucose 223 mg/dL (74-99); Non-African American GFR(CKD) >90 (>60 ml/min/1.73 sqM); Potassium 4.6 mmol/L (3.5-5.1); Sodium 129 mmol/L (137-145)
[2023-06-13 13:03] LABS: Glucose,Whole Blood 214 mg/dL (70-110)
[2023-06-13 14:08] LABS: Glucose,Whole Blood 173 mg/dL (70-110)
[2023-06-13 15:38] LABS: Glucose,Whole Blood 166 mg/dL (70-110)
[2023-06-13 16:24] LABS: Glucose,Whole Blood 149 mg/dL (70-110)
[2023-06-13 17:42] LABS: Glucose,Whole Blood 150 mg/dL (70-110)
[2023-06-13 18:14] LABS: African American GFR (CKD) >90 (>60 ml/min/1.73 sqM); Anion Gap 11 mmol/L; Blood Urea Nitrogen 8 mg/dL (9-20); Calcium 8.3 mg/dL (8.4-10.2); Carbon Dioxide 16 mmol/L (22-30); Chloride 105 mmol/L (98-107); Glucose 134 mg/dL (74-99); Non-African American GFR(CKD) >90 (>60 ml/min/1.73 sqM); Phosphorus 2.1 mg/dL (2.5-4.5); Potassium 3.9 mmol/L (3.5-5.1); Sodium 132 mmol/L (137-145)
[2023-06-13 19:14] LABS: Glucose,Whole Blood 127 mg/dL (70-110)
[2023-06-13 19:57] LABS: Glucose,Whole Blood 172 mg/dL (70-110)
[2023-06-13 21:01] LABS: Glucose,Whole Blood 180 mg/dL (70-110)
[2023-06-13 22:25] LABS: Glucose,Whole Blood 160 mg/dL (70-110)
[2023-06-14 00:15] LABS: Glucose,Whole Blood 189 mg/dL (70-110)
[2023-06-14 01:07] LABS: Glucose,Whole Blood 184 mg/dL (70-110)
[2023-06-14 01:55] LABS: African American GFR (CKD) >90 (>60 ml/min/1.73 sqM); Anion Gap 7 mmol/L; Blood Urea Nitrogen 5 mg/dL (9-20); Calcium 8.4 mg/dL (8.4-10.2); Carbon Dioxide 18 mmol/L (22-30); Chloride 107 mmol/L (98-107); Glucose 170 mg/dL (74-99); Non-African American GFR(CKD) >90 (>60 ml/min/1.73 sqM); Potassium 4.3 mmol/L (3.5-5.1); Sodium 132 mmol/L (137-145)
[2023-06-14 02:07] LABS: Glucose,Whole Blood 215 mg/dL (70-110)
[2023-06-14] MEDS: D5-0.45% NACL WITH KCL 20MEQ/L 1,000 ML IV SCH ×3 (02:29→14:06)
[2023-06-14] MEDS: SODIUM CHLORIDE 0.9% 1,000 ML IV SCH ×3 (02:30→14:45)
[2023-06-14 03:39] LABS: Glucose,Whole Blood 154 mg/dL (70-110)
[2023-06-14 05:14] LABS: Glucose,Whole Blood 156 mg/dL (70-110)
[2023-06-14 06:21] LABS: Glucose,Whole Blood 159 mg/dL (70-110)
[2023-06-14 07:17] LABS: Glucose,Whole Blood 133 mg/dL (70-110)
[2023-06-14 08:10] LABS: Glucose,Whole Blood 148 mg/dL (70-110)
[2023-06-14 09:27] LABS: Glucose,Whole Blood 172 mg/dL (70-110)
[2023-06-14 09:31] LABS: ALT 20 U/L (4-49); AST 23 U/L (17-59); African American GFR (CKD) >90 (>60 ml/min/1.73 sqM); Albumin 3.1 g/dL (3.5-5.0); Alkaline Phosphatase 89 U/L (38-126); Anion Gap 9 mmol/L; Blood Urea Nitrogen <2 mg/dL (9-20); Calcium 8.3 mg/dL (8.4-10.2); Carbon Dioxide 17 mmol/L (22-30); Chloride 107 mmol/L (98-107); Glucose 124 mg/dL (74-99); Non-African American GFR(CKD) >90 (>60 ml/min/1.73 sqM); Potassium 4.1 mmol/L (3.5-5.1); Sodium 133 mmol/L (137-145); Total Bilirubin 0.4 mg/dL (0.2-1.3); Total Protein 5.6 g/dL (6.3-8.2)
[2023-06-14 10:13] LABS: Glucose,Whole Blood 182 mg/dL (70-110)
[2023-06-14 11:03] LABS: Glucose,Whole Blood 245 mg/dL (70-110)
[2023-06-14 12:14] LABS: Glucose,Whole Blood 254 mg/dL (70-110)
[2023-06-14 12:18] LABS: ALT 21 U/L (4-49); AST 22 U/L (17-59); African American GFR (CKD) >90 (>60 ml/min/1.73 sqM); Alkaline Phosphatase 85 U/L (38-126); Anion Gap 7 mmol/L; Blood Urea Nitrogen <2 mg/dL (9-20); Carbon Dioxide 19 mmol/L (22-30); Chloride 106 mmol/L (98-107); Glucose 243 mg/dL (74-99); Non-African American GFR(CKD) >90 (>60 ml/min/1.73 sqM); Potassium 4.4 mmol/L (3.5-5.1); Sodium 132 mmol/L (137-145); Total Bilirubin 0.5 mg/dL (0.2-1.3); Total Protein 5.4 g/dL (6.3-8.2)
[2023-06-14 12:59] LABS: Glucose,Whole Blood 286 mg/dL (70-110)
[2023-06-14] MEDS ORDERED: INSULIN DETEMIR (LEVEMIR) 100 UNIT/ML SYR SQ SCH (13:55)
[2023-06-14 14:15] LABS: Glucose,Whole Blood 254 mg/dL (70-110)
[2023-06-14] MEDS: INSULIN REGULAR 100 UNIT in SODIUM CHLORIDE 0.9% 100 ML IV SCH (14:45)
[2023-06-14 16:34] LABS: Glucose,Whole Blood 255 mg/dL (70-110)
[2023-06-14] MEDS ORDERED: INSULIN ASPART (NovoLOG) 100 UNIT/ML VIAL SQ SCH (17:30)
[2023-06-14 17:34] VITALS: BP 131/98; PULSE 90; RESP 16; TEMP 98.4
--- NOTE | 2023-06-18 21:39 | DS ---
DISCHARGE SUMMARY CHIEF COMPLAINT: DKA. HISTORY OF PRESENT ILLNESS AND PHYSICAL EXAMINATION: Details of this man's history and physical can be found in the initial workup. LABORATORY STUDIES: While he was in the hospital, he had laboratory studies, details of which can be found in the laboratory section of his chart. COURSE IN THE HOSPITAL: After admission, he was placed on bedrest, started on intravenous fluids, and DKA protocol as well as antiemetics. He did well and was stable. It was felt that he could be discharged on the . He will go home on his usual regular activity, medications, and diet and was told to follow up in the office. FINAL DIAGNOSES: 1. DKA. 2. Depression. OPERATIONS: None. CONSULTATIONS: None, he is improved. MMODDale / TRAMN: [id number] /
--- NOTE | 2023-06-19 08:07 | PN ---
PROGRESS NOTE DATE OF SERVICE: 06/13/2023 CHIEF COMPLAINT: DKA. HISTORY OF PRESENT ILLNESS: This gentleman is still weak and lethargic and he is vomiting. PHYSICAL EXAMINATION: CHEST: Clear. CARDIAC: Exam is normal except for tachycardia. ABDOMEN: Flat, soft, nontender. Bowel sounds are present. IMPRESSION: 1. Diabetic ketoacidosis. 2. Nausea and vomiting. 3. Dehydration. PLAN: Slowly progress activity and diet. Gap is closing and sugars are down. MMODL / IJN: [id number] /
== END 2023-06-14 17:41 | disposition home or self-care (01) | DRG 420 ==
LOC: EC 17:36 → 3SCARD 19:09
PROVIDERS: ADMIT Family Medicine; ATTEND Family Medicine
DX: E10.10 Type 1 diabetes mellitus with ketoacidosis without coma (principal); Z79.4 Long term (current) use of insulin; Z82.49 Family history of ischemic heart disease and other diseases of the circulatory system; Z91.199 Patient's noncompliance with other medical treatment and regimen due to unspecified reason; T38.3X6A Underdosing of insulin and oral hypoglycemic [antidiabetic] drugs, initial encounter; Z91.128 Patient's intentional underdosing of medication regimen for other reason; Z28.310 Unvaccinated for COVID-19; Z28.21 Immunization not carried out because of patient refusal; R19.7 Diarrhea, unspecified; Z79.899 Other long term (current) drug therapy; F32.A Depression, unspecified; F41.9 Anxiety disorder, unspecified; E11.40 Type 2 diabetes mellitus with diabetic neuropathy, unspecified; L30.9 Dermatitis, unspecified
CPT/HCPCS: 36415; 80048; 80051; 80053; 81003; 82009; 82565; 82803; 82947; 83605; 83735; 84100; 84520; 85025; 96360; 99285

== ENCOUNTER 2023-06-17 02:20 | Inpatient (IN) | payer OTHER ==
[2023-06-17 02:25] LABS: Glucose,Whole Blood >600 mg/dL (70-110)
[2023-06-17] MEDS ORDERED: SODIUM CHLORIDE 0.9% 2,000 ML IV STA (02:30)
--- NOTE | 2023-06-17 02:32 | ED ---
General Adult HPI - General Chief complaint: Recheck/Abnormal Lab/Rx Stated complaint: DKA Time Seen by Provider: 06/17/23 02:23 Source: EMS Mode of arrival: EMS - History of Present Illness Initial comments: 27-year-old male with a past medical history significant for type 1 diabetes presenting to the ED with a chief complaint of nausea and vomiting. Patient has history of DKA as patient noncompliant with his medications. Coming in today with diffuse abdominal pain nausea or vomiting. No chest pain or shortness of breath. No other complaints. - Related Data Home Medications Medication Instructions Recorded Confirmed Insulin Detemir (Levemir) [Levemir] 30 unit SQ HS 03/07/23 06/23/23 Ergocalciferol [Vitamin D2 (1250 1,250 mcg PO Q30D 04/29/23 06/23/23 Mcg = 31212 Iu)] Famotidine [Pepcid] 20 mg PO BID 04/29/23 06/23/23 Gabapentin 600 mg PO TID 04/29/23 06/23/23 Insulin Lispro [Insulin Lispro 7 units SQ AC-TID 04/29/23 06/23/23 Kwikpen U-100] Losartan Potassium 50 mg PO DAILY 04/29/23 06/23/23 Mirtazapine 7.5 mg PO HS 04/29/23 06/23/23 Allergies Allergy/AdvReac Type Severity Reaction Status Date / Time No Known Allergies Allergy Verified 06/23/23 10:32 Review of Systems ROS Statement: Those systems with pertinent positive or pertinent negative responses have been documented in the HPI. ROS Other: All systems not noted in ROS Statement are negative. Past Medical History Past Medical History: Asthma, Diabetes Mellitus, Neurologic Disorder, Skin Disorder Additional Past Medical History / Comment(s): IDDM type I, neuropathy bilateral feet, DKA, eczema. History of Any Multi-Drug Resistant Organisms: None Reported Past Surgical History: Adenoidectomy Additional Past Surgical History / Comment(s): 2003 Recent EGD- gastritis Past Anesthesia/Blood Transfusion Reactions: No Reported Reaction Past Psychological History: Anxiety, Depression Smoking Status: Former smoker Past Alcohol Use History: None Reported Past Drug Use History: Marijuana - Past Family History Mother Family Medical History: CVA/TIA Additional Family Medical History / Comment(s): TIA Father Family Medical History: Hyperlipidemia, Hypertension Additional Family Medical History / Comment(s): . General Exam Neck exam: Present: normal inspection Respiratory exam: Present: other (Kussmal respirations. Lungs CTAB) Cardiovascular Exam: Present: tachycardia GI/Abdominal exam: Present: soft Neurological exam: Present: altered Skin exam: Present: warm, dry Course Vital Signs 06/17/23 06/17/23 06/17/23 02:21 02:30 02:56 Pulse Rate 98 98 97 Respiratory 36 H 36 H 36 H Rate Blood Pressure 88/43 85/50 93/72 O2 Sat by Pulse 100 99 99 Oximetry 06/17/23 06/17/23 06/17/23 03:16 04:00 05:00 Pulse Rate 94 96 103 H Respiratory 36 H 34 H 36 H Rate Blood Pressure 101/63 106/56 95/65 O2 Sat by Pulse 99 99 99 Oximetry 06/17/23 06/17/23 06:09 07:52 Pulse Rate 108 H 109 H Respiratory 34 H 30 H Rate Blood Pressure 115/67 110/82 O2 Sat by Pulse 99 99 Oximetry Medical Decision Making - Medical Decision Making Was pt. sent in by a medical professional or institution (, PA, HOTEL OR MOTEL CLEANING SUPERVISOR, urgent care, hospital, or long-term...) When possible be specific @ -No Did you speak to anyone other than the patient for history (EMS, parent, family, police, friend...)? What history was obtained from this source @ -No Did you review nursing and triage notes (agree or disagree)? Why? @ -I reviewed and agree with nursing and triage notes Were old charts reviewed (outside hosp., previous admission, EMS record, old EKG, old radiological studies, urgent care reports/EKG's, long-term records)? Report findings @ -No old charts were reviewed Differential Diagnosis (chest pain, altered mental status, abdominal pain women, abdominal pain men, vaginal bleeding, weakness, fever, dyspnea, syncope, headache, dizziness, GI bleed, back pain, seizure, CVA, palpatations, mental health, musculoskeletal)? @ -DKA, HHS. This is not meant to be an all inclusive list. EKG interpreted by me (3pts min.). @ -As above X-rays interpreted by me (1pt min.). @ -None done CT interpreted by me (1pt min.). @ -None done U/S interpreted by me (1pt. min.). @ -None done What testing was considered but not performed or refused? (CT, X-rays, U/S, labs)? Why? @ -None What meds were considered but not given or refused? Why? @ -None Did you discuss the management of the patient with other professionals (professionals i.e. , PA, HOTEL OR MOTEL CLEANING SUPERVISOR, lab, RT, psych nurse, social worker assistant, outside plant field engineer, teacher, sales officer, case sealer)? Give summary @ -No Was smoking cessation discussed for >3mins.? @ -No Was critical care preformed (if so, how long)? @ -Yes, 35 minutes. DKA Were there social determinants of health that impacted care today? How? (Homelessness, low income, unemployed, alcoholism, drug addiction, transportation, low edu. Level, literacy, decrease access to med. care, prison, rehab)? @ -No Was there de-escalation of care discussed even if they declined (Discuss DNR or withdrawal of care, Hospice)? DNR status @ -No What co-morbidities impacted this encounter? (DM, HTN, Smoking, COPD, CAD, Cancer, CVA, ARF, Chemo, Hep., AIDS, mental health diagnosis, sleep apnea, morbid obesity)? @ -Type 1 diabetes Was patient admitted / discharged? Hospital course, mention meds given and route, prescriptions, significant lab abnormalities, going to OR and other pertinent info. @ -Admission 27-year-old male with past medical history significant for type 1 diabetes noncompliant with medications presenting to the ED with nausea vomiting. Laboratory studies at this time significant for a potassium of 6.5, CO2 less than 5, BUN of 31, creatinine at 2.4, glucose 1114, lactic acid of 6.2. She received a 2 L fluid bolus and started on insulin drip following this. Patient will be admitted secondary to DKA. Undiagnosed new problem with uncertain prognosis? @ -No Drug Therapy requiring intensive monitoring for toxicity (Heparin, Nitro, Insulin, Cardizem)? @ -No Were any procedures done? @ -No Diagnosis/symptom? @ -DKA Acute, or Chronic, or Acute on Chronic? @ -Acute Uncomplicated (without systemic symptoms) or Complicated (systemic symptoms)? @ -Complicated Side effects of treatment? @ -No Exacerbation, Progression, or Severe Exacerbation? @ -No Poses a threat to life or bodily function? How? (Chest pain, [place], SC, pneumonia, PE, COPD, DKA, ARF, appy, cholecystitis, CVA, Diverticulitis, Homicidal, Suicidal, threat to staff... and all critical care pts) @ -Possibly - Lab Data Result diagrams: 06/17/23 02:38 06/18/23 04:07 Lab Results 06/17/23 06/17/23 06/17/23 Range/Units 02:23 02:38 02:38 WBC 47.5 H (3.8-10.6) k/uL RBC 4.18 L (4.30-5.90) m/uL Hgb 11.9 L (13.0-17.5) gm/dL Hct 44.3 (39.0-53.0) % MCV 106.0 H D (80.0-100.0) fL MCH 28.5 (25.0-35.0) pg MCHC 26.9 L (31.0-37.0) g/dL RDW 15.6 H (11.5-15.5) % Plt Count 730 H (150-450) k/uL MPV 8.1 Neutrophils % (Manual) 67 % Band Neuts % (Manual) 4 % Lymphocytes % (Manual) 20 % Monocytes % (Manual) 6 % Eosinophils % (Manual) 1 % Metamyelocytes % 3 % Myelocytes % 1 % Neutrophils # (Manual) 33.70 H (1.3-7.7) k/uL Lymphocytes # (Manual) 9.50 H (1.0-4.8) k/uL Monocytes # (Manual) 2.85 H (0-1.0) k/uL Eosinophils # (Manual) 0.48 (0-0.7) k/uL Metamyelocytes # (Man) 1.43 H (0) k/uL Myelocytes # (Manual) 0.48 H (0) k/uL Nucleated RBCs 0 (0-0) /100 WBC Manual Slide Review Performed Toxic Vacuolation Present Hypochromasia Marked Anisocytosis (manual) Present Macrocytosis Moderate Sodium (137-145) mmol/L Potassium (3.5-5.1) mmol/L Chloride (98-107) mmol/L Carbon Dioxide (22-30) mmol/L Anion Gap mmol/L BUN (9-20) mg/dL Creatinine (0.66-1.25) mg/dL Est GFR (CKD-EPI)AfAm (>60 ml/min/1.73 sqM) Est GFR (CKD-EPI)NonAf (>60 ml/min/1.73 sqM) Glucose (74-99) mg/dL POC Glucose (mg/dL) >600 H (70-110) mg/dL POC Glu Sales And Marketing Associate ID Daniel Ashton Lactic Ac Sepsis Rflx Plasma Lactic Acid Len (0.7-2.0) mmol/L Calcium (8.4-10.2) mg/dL Phosphorus (2.5-4.5) mg/dL Magnesium (1.6-2.3) mg/dL Total Bilirubin (0.2-1.3) mg/dL AST (17-59) U/L ALT (4-49) U/L Alkaline Phosphatase (38-126) U/L Ammonia (<30) umol/L Total Protein (6.3-8.2) g/dL Albumin (3.5-5.0) g/dL Urine Color Colorless Urine Appearance Clear (Clear) Urine pH 5.0 (5.0-8.0) Ur Specific [place] 1.022 (1.001-1.035) Urine Protein Trace H (Negative) Urine Glucose (UA) 4+ H (Negative) Urine Ketones 4+ H (Negative) Urine Blood Trace H (Negative) Urine Nitrite Negative (Negative) Urine Bilirubin Negative (Negative) Urine Urobilinogen <2.0 (<2.0) mg/dL Ur Leukocyte Esterase Negative (Negative) Urine RBC 1 (0-5) /hpf Urine WBC <1 (0-5) /hpf Ur Squamous Epith Cells <1 (0-4) /hpf Urine Bacteria Rare H (None) /hpf Hyaline Casts 6 H (0-2) /lpf Urine Mucus Rare H (None) /hpf Acetone, Qual (Negative) 06/17/23 06/17/23 06/17/23 Range/Units 02:38 02:38 02:38 WBC (3.8-10.6) k/uL RBC (4.30-5.90) m/uL Hgb (13.0-17.5) gm/dL Hct (39.0-53.0) % MCV (80.0-100.0) fL MCH (25.0-35.0) pg MCHC (31.0-37.0) g/dL RDW (11.5-15.5) % Plt Count (150-450) k/uL MPV Neutrophils % (Manual) % Band Neuts % (Manual) % Lymphocytes % (Manual) % Monocytes % (Manual) % Eosinophils % (Manual) % Metamyelocytes % % Myelocytes % % Neutrophils # (Manual) (1.3-7.7) k/uL Lymphocytes # (Manual) (1.0-4.8) k/uL Monocytes # (Manual) (0-1.0) k/uL Eosinophils # (Manual) (0-0.7) k/uL Metamyelocytes # (Man) (0) k/uL Myelocytes # (Manual) (0) k/uL Nucleated RBCs (0-0) /100 WBC Manual Slide Review Toxic Vacuolation Hypochromasia Anisocytosis (manual) Macrocytosis Sodium 140 (137-145) mmol/L Potassium 6.5 H* (3.5-5.1) mmol/L Chloride 98 (98-107) mmol/L Carbon Dioxide <5 L* (22-30) mmol/L Anion Gap mmol/L BUN 31 H (9-20) mg/dL Creatinine 2.40 H (0.66-1.25) mg/dL Est GFR (CKD-EPI)AfAm 42 (>60 ml/min/1.73 sqM) Est GFR (CKD-EPI)NonAf 36 (>60 ml/min/1.73 sqM) Glucose 1114 H* (74-99) mg/dL POC Glucose (mg/dL) (70-110) mg/dL POC Glu Sales And Marketing Associate ID Lactic Ac Sepsis Rflx Plasma Lactic Acid Len 6.2 H* (0.7-2.0) mmol/L Calcium 9.3 (8.4-10.2) mg/dL Phosphorus 14.1 H* (2.5-4.5) mg/dL Magnesium 3.1 H (1.6-2.3) mg/dL Total Bilirubin 0.3 (0.2-1.3) mg/dL AST 25 (17-59) U/L ALT 22 (4-49) U/L Alkaline Phosphatase 122 (38-126) U/L Ammonia 54 H (<30) umol/L Total Protein 6.4 (6.3-8.2) g/dL Albumin 4.4 (3.5-5.0) g/dL Urine Color Urine Appearance (Clear) Urine pH (5.0-8.0) Ur Specific [place] (1.001-1.035) Urine Protein (Negative) Urine Glucose (UA) (Negative) Urine Ketones (Negative) Urine Blood (Negative) Urine Nitrite (Negative) Urine Bilirubin (Negative) Urine Urobilinogen (<2.0) mg/dL Ur Leukocyte Esterase (Negative) Urine RBC (0-5) /hpf Urine WBC (0-5) /hpf Ur Squamous Epith Cells (0-4) /hpf Urine Bacteria (None) /hpf Hyaline Casts (0-2) /lpf Urine Mucus (None) /hpf Acetone, Qual Positive (Negative) 06/17/23 Range/Units 03:06 WBC (3.8-10.6) k/uL RBC (4.30-5.90) m/uL Hgb (13.0-17.5) gm/dL Hct (39.0-53.0) % MCV (80.0-100.0) fL MCH (25.0-35.0) pg MCHC (31.0-37.0) g/dL RDW (11.5-15.5) % Plt Count (150-450) k/uL MPV Neutrophils % (Manual) % Band Neuts % (Manual) % Lymphocytes % (Manual) % Monocytes % (Manual) % Eosinophils % (Manual) % Metamyelocytes % % Myelocytes % % Neutrophils # (Manual) (1.3-7.7) k/uL Lymphocytes # (Manual) (1.0-4.8) k/uL Monocytes # (Manual) (0-1.0) k/uL Eosinophils # (Manual) (0-0.7) k/uL Metamyelocytes # (Man) (0) k/uL Myelocytes # (Manual) (0) k/uL Nucleated RBCs (0-0) /100 WBC Manual Slide Review Toxic Vacuolation Hypochromasia Anisocytosis (manual) Macrocytosis Sodium (137-145) mmol/L Potassium (3.5-5.1) mmol/L Chloride (98-107) mmol/L Carbon Dioxide (22-30) mmol/L Anion Gap mmol/L BUN (9-20) mg/dL Creatinine (0.66-1.25) mg/dL Est GFR (CKD-EPI)AfAm (>60 ml/min/1.73 sqM) Est GFR (CKD-EPI)NonAf (>60 ml/min/1.73 sqM) Glucose (74-99) mg/dL POC Glucose (mg/dL) (70-110) mg/dL POC Glu Sales And Marketing Associate ID Lactic Ac Sepsis Rflx Y Plasma Lactic Acid Len (0.7-2.0) mmol/L Calcium (8.4-10.2) mg/dL Phosphorus (2.5-4.5) mg/dL Magnesium (1.6-2.3) mg/dL Total Bilirubin (0.2-1.3) mg/dL AST (17-59) U/L ALT (4-49) U/L Alkaline Phosphatase (38-126) U/L Ammonia (<30) umol/L Total Protein (6.3-8.2) g/dL Albumin (3.5-5.0) g/dL Urine Color Urine Appearance (Clear) Urine pH (5.0-8.0) Ur Specific [place] (1.001-1.035) Urine Protein (Negative) Urine Glucose (UA) (Negative) Urine Ketones (Negative) Urine Blood (Negative) Urine Nitrite (Negative) Urine Bilirubin (Negative) Urine Urobilinogen (<2.0) mg/dL Ur Leukocyte Esterase (Negative) Urine RBC (0-5) /hpf Urine WBC (0-5) /hpf Ur Squamous Epith Cells (0-4) /hpf Urine Bacteria (None) /hpf Hyaline Casts (0-2) /lpf Urine Mucus (None) /hpf Acetone, Qual (Negative) - EKG Data EKG Comments: EKG shows a sinus rhythm at 194 beats per with some nonspecific ST and T-wave changes. Appears similar to prior. Although reading it 194 when compared to monitor patient is@98 beats for minute. Critical Care Time Critical Care Time: Yes Total Critical Care Time: 35 Disposition Clinical Impression: DKA (diabetic ketoacidosis) Disposition: ADMITTED IP TO THIS HOSP
[2023-06-17 02:46] LABS: HCT 44.3 % (39.0-53.0); HGB 11.9 gm/dL (13.0-17.5); Hypochromasia Marked; MCH 28.5 pg (25.0-35.0); MCHC 26.9 g/dL (31.0-37.0); Macrocytosis Moderate; Mean Platelet Volume 8.1; Platelet Count 730 k/uL (150-450); RBC 4.18 m/uL (4.30-5.90); RDW 15.6 % (11.5-15.5); WBC 47.5 k/uL (3.8-10.6)
[2023-06-17 02:55] LABS: ALT 22 U/L (4-49); AST 25 U/L (17-59); African American GFR (CKD) 42 (>60 ml/min/1.73 sqM); Albumin 4.4 g/dL (3.5-5.0); Alkaline Phosphatase 122 U/L (38-126); Blood Urea Nitrogen 31 mg/dL (9-20); Calcium 9.3 mg/dL (8.4-10.2); Chloride 98 mmol/L (98-107); Non-African American GFR(CKD) 36 (>60 ml/min/1.73 sqM); Sodium 140 mmol/L (137-145); Total Bilirubin 0.3 mg/dL (0.2-1.3); Total Protein 6.4 g/dL (6.3-8.2)
[2023-06-17 03:06] LABS: Lactic Acid, Venous 6.2 mmol/L (0.7-2.0)
[2023-06-17 03:07] LABS: Carbon Dioxide <5 mmol/L (22-30); Glucose 1114 mg/dL (74-99); Potassium 6.5 mmol/L (3.5-5.1)
[2023-06-17 03:17] LABS: Magnesium 3.1 mg/dL (1.6-2.3)
[2023-06-17] MEDS: SODIUM CHLORIDE 0.9% 1,000 ML IV SCH ×4 (03:22→16:27)
[2023-06-17] MEDS: INSULIN REGULAR 100 UNIT in SODIUM CHLORIDE 0.9% 100 ML IV SCH ×2 (03:24→14:34)
[2023-06-17 03:45] LABS: Phosphorus 14.1 mg/dL (2.5-4.5)
[2023-06-17 04:33] LABS: Band Neutrophils % 4 %; Eosinophils # (M) 0.48 k/uL (0-0.7); Metamyelocytes # (M) 1.43 k/uL (0); Metamyelocytes % 3 %; Monocytes # (M) 2.85 k/uL (0-1.0); Myelocytes # (M) 0.48 k/uL (0); Myelocytes % 1 %; Neutrophils % (M) 67 %; Nucleated Red Blood Cells 0 /100 WBC (0-0); Total Cells Counted 200
[2023-06-17 04:34] LABS: Anisocytosis (M) Present; Toxic Vacuolation Present
[2023-06-17 04:35] LABS: Glucose,Whole Blood >600 mg/dL (70-110)
[2023-06-17 04:49] LABS: African American GFR (CKD) 51 (>60 ml/min/1.73 sqM); Blood Urea Nitrogen 30 mg/dL (9-20); Chloride 107 mmol/L (98-107); Non-African American GFR(CKD) 44 (>60 ml/min/1.73 sqM); Potassium 5.9 mmol/L (3.5-5.1); Sodium 145 mmol/L (137-145)
[2023-06-17 05:04] LABS: Glucose 930 mg/dL (74-99)
[2023-06-17 05:05] LABS: Carbon Dioxide <5 mmol/L (22-30)
[2023-06-17 05:27] LABS: ABG Oxygen Saturation 94.7 % (94-97); ABG PO2 107 mmHg (83-108); Allen Test Performed? Yes
[2023-06-17 05:34] LABS: ABG PH 6.89 (7.35-7.45)
[2023-06-17 05:35] LABS: ABG PCO2 <15 mmHg (35-45)
[2023-06-17] MEDS ORDERED: SODIUM BICARB 8.4% 50 ML SYR (1 MEQ/ML) IV STA ×2 (05:37)
[2023-06-17 05:51] LABS: Appearance,Urine Clear (Clear); Bacteria,Urine Rare /hpf; Bilirubin,Urine Negative (Negative); Blood,Urine Trace (Negative); Color,Urine Colorless; Glucose,Urine (UA) 4+ (Negative); Hyaline Casts,Urine 6 /lpf (0-2); Leukocyte Esterase,Urine Negative (Negative); Mucus,Urine Rare /hpf; Nitrite,Urine Negative (Negative); Protein,Urine Trace (Negative); RBC,Urine 1 /hpf (0-5); Specific Gravity,Urine 1.022 (1.001-1.035); Squamous Epithelial Cell,Urine <1 /hpf (0-4); Urobilinogen,Urine <2.0 mg/dL (<2.0); WBC,Urine <1 /hpf (0-5)
[2023-06-17 05:54] LABS: Glucose,Whole Blood >600 mg/dL (70-110)
[2023-06-17 06:03] LABS: Ketones,Urine 4+ (Negative)
[2023-06-17 06:35] LABS: Glucose,Whole Blood >600 mg/dL (70-110)
--- NOTE | 2023-06-17 06:42 | P.CNPUL ---
History of Present Illness Consult date: 06/17/23 Requesting physician: Deana Shin Reason for consult: other (Diabetic ketoacidosis) Chief complaint: Altered mental status, nausea and vomiting, and elevated blood sugars History of present illness: This is a 27-year-old white male with past medical history significant for type 1 diabetes mellitus and medication noncompliance. Patient has had numerous hospital admissions for diabetic ketoacidosis, most recent hospital admission was 5 days ago on 06/12/2022 for the same. Patient was brought in earlier this morning by EMS, he was confused and tachypneic. He answers some of my questions. Patient's blood sugars were elevated at home. Patient states that he was taking his insulin. Denies any abdominal pain, diarrhea, constipation, hematemesis. Denies any infectious symptoms. He was found to be in DKA. Serum bicarb was less than 5, anion gap unmeasurable, glucose 1114, and he was acetone positive. Patient has been started on the DKA protocol. Insulin is currently infusing at 6.4 units/h. He was also severely hyperkalemic on arrival, with a potassium of 6.5. Hyperacute T waves seen on EKG. He also received two amps of sodium bicarb. CBC on arrival showed some leukocytosis with a WBC count of 47.5, hemoglobin 11.9, hematocrit 44.3, platelets 730. He received 2 L normal saline bolus in the emergency room. Normal saline is currently infusing at 200 ml per hour. Most recent BMP shows sodium 145, potassium down to 5.9, chloride 107, serum bicarb still less than 5, anion gap unmeasurable, creatinine down to 2.05, most recent glucose 930. Patient is currently lying in bed, in no acute distress, able answer most of my questions. He is on room air. SpO2 is 99%. Blood pressure is normotensive after fluid resuscitation. He will be admitted to the intensive care unit once bed available. Review of Systems REVIEW OF SYSTEMS: CONSTITUTIONAL: Denies any recent significant weight loss or weight gain. EYES: Denies change in vision. EARS, NOSE, MOUTH, THROAT: Denies headaches, denies sore throat. CARDIOVASCULAR: Denies chest pain, palpitations or syncopal episodes. RESPIRATORY: Denies shortness of breath, cough, congestion or hemoptysis. GASTROINTESTINAL: Denies change in appetite, abdominal pain,or diarrhea. Admits nausea and vomiting following elevated blood sugars. GENITOURINARY: Denies hematuria, denies infections. MUSKULOSKELETAL: Denies pain, denies swelling. INTEGUMENTARY: Denies rash, denies eczema. NEUROLOGICAL: Denies recent memory loss, no recent seizure activity. PSYCHIATRIC: Denies anxiety, denies depression. HEMATOLOGIC/LYMPHATIC: Denies anemia, denies enlarged lymph node Past Medical History Past Medical History: Asthma, Diabetes Mellitus, Neurologic Disorder, Skin Disorder Additional Past Medical History / Comment(s): IDDM type I, neuropathy bilateral feet, DKA, eczema. History of Any Multi-Drug Resistant Organisms: None Reported Past Surgical History: Adenoidectomy Additional Past Surgical History / Comment(s): 2002 Recent EGD- gastritis Past Anesthesia/Blood Transfusion Reactions: No Reported Reaction Past Psychological History: Anxiety, Depression Smoking Status: Former smoker Past Alcohol Use History: None Reported Past Drug Use History: Marijuana - Past Family History Mother Family Medical History: CVA/TIA Additional Family Medical History / Comment(s): TIA Father Family Medical History: Hyperlipidemia, Hypertension Additional Family Medical History / Comment(s): . Medications and Allergies Home Medications Medication Instructions Recorded Confirmed Type Insulin Detemir (Levemir) [Levemir] 30 unit SQ HS 03/07/23 06/12/23 History Ergocalciferol [Vitamin D2 (1250 1,250 mcg PO Q30D 04/29/23 06/12/23 History Mcg = 30882 Iu)] Famotidine [Pepcid] 20 mg PO BID 04/29/23 06/12/23 History Gabapentin 600 mg PO TID 04/29/23 06/12/23 History Insulin Lispro [Insulin Lispro 7 units SQ AC-TID 04/29/23 06/12/23 History Kwikpen U-100] Losartan Potassium 50 mg PO DAILY 04/29/23 06/12/23 History Mirtazapine 7.5 mg PO HS 04/29/23 06/12/23 History Allergies Allergy/AdvReac Type Severity Reaction Status Date / Time No Known Allergies Allergy Verified 06/17/23 02:27 Physical Exam Vitals: Vital Signs Pulse Resp BP Pulse Ox 06/17/23 04:00 96 34 H 106/56 99 06/17/23 03:16 94 36 H 101/63 99 06/17/23 02:56 97 36 H 93/72 99 06/17/23 02:30 98 36 H 85/50 99 06/17/23 02:21 98 36 H 88/43 100 Intake and Output 06/16/23 06/16/23 06/17/23 14:59 22:59 06:59 Other: Weight 63.503 kg GENERAL EXAM: Alert, disheveled 27-year-old white male, fairly comfortable in no apparent distress. HEAD: Normocephalic and atraumatic EYES: Normal reaction of pupils, equal size. NOSE: Clear with pink turbinates. THROAT: No erythema or exudates. Poor dentition. Dry mucous membranes NECK: No masses, no JVD. CHEST: No chest wall deformity. LUNGS: Equal air entry with no crackles, wheeze, rhonchi or dullness. On room air. No conversational dyspnea or accessory muscle use.. He is tachypneic, Kussmaul respirations CVS: S1 and S2 normal with no audible murmur, regular rhythm. No extra heart sounds ABDOMEN: No hepatosplenomegaly, active bowel sounds, no guarding or rigidity. SPINE: No scoliosis or deformity SKIN: No rashes CENTRAL NERVOUS SYSTEM: No focal deficits, tone is normal in all 4 extremities. EXTREMITIES: There is no peripheral edema, clubbing, or cyanosis. Peripheral pulses are intact. Results - Laboratory Findings CBC and BMP: 06/17/23 02:38 06/17/23 04:00 Abnormal lab findings: Abnormal Labs 06/17/23 06/17/23 06/17/23 02:23 02:38 02:38 WBC 47.5 H RBC 4.18 L Hgb 11.9 L MCV 106.0 H D MCHC 26.9 L RDW 15.6 H Plt Count 730 H Neutrophils # (Manual) 33.70 H Lymphocytes # (Manual) 9.50 H Monocytes # (Manual) 2.85 H Metamyelocytes # (Man) 1.43 H Myelocytes # (Manual) 0.48 H Potassium 6.5 H* Carbon Dioxide <5 L* BUN 31 H Creatinine 2.40 H Glucose 1114 H* POC Glucose (mg/dL) >600 H Plasma Lactic Acid Len Phosphorus Magnesium Ammonia 06/17/23 06/17/23 06/17/23 02:38 02:38 04:00 WBC RBC Hgb MCV MCHC RDW Plt Count Neutrophils # (Manual) Lymphocytes # (Manual) Monocytes # (Manual) Metamyelocytes # (Man) Myelocytes # (Manual) Potassium Carbon Dioxide BUN Creatinine Glucose POC Glucose (mg/dL) Plasma Lactic Acid Len 6.2 H* 7.0 H* Phosphorus 14.1 H* Magnesium 3.1 H Ammonia 54 H 06/17/23 06/17/23 06/17/23 04:00 04:00 04:33 WBC RBC Hgb MCV MCHC RDW Plt Count Neutrophils # (Manual) Lymphocytes # (Manual) Monocytes # (Manual) Metamyelocytes # (Man) Myelocytes # (Manual) Potassium 5.9 H Carbon Dioxide <5 L* BUN 30 H Creatinine 2.05 H Glucose 930 H* POC Glucose (mg/dL) >600 H Plasma Lactic Acid Len Phosphorus 12.2 H* Magnesium Ammonia Assessment and Plan Assessment: Acute diabetic ketoacidosis, likely secondary to medication noncompliance. Patient has had numerous episodes of DKA, recently admitted on 06/12/23 for the same Severe anion gap metabolic acidosis, secondary to above and lactic acidosis Toxic metabolic encephalopathy, secondary to above Severe dehydration Acute kidney injury, prerenal, secondary to above Severe hyperkalemia, improving Hyperphosphatemia Type 1 diabetes mellitus, with poor medication compliance. Acute leukocytosis, likely reactive to DKA Diabetic neuropathy History of major depression Chronic marijuana use Chronic ongoing nicotine dependence Plan: Patient's medications, labs, and chest x-ray were noted Continue DKA protocol Insulin infusion per protocol Fluid resuscitated with 2 L normal saline bolus in the emergency room, and has normal saline infusing at 200 ML's per hour Hyperkalemia is improving. There were hyperacute T waves. Continue to monitor electrolytes every 4 hours. Patient will be monitored in the intensive care unit until his DKA resolves. I have personally seen and examined the patient, performed the documentation and the assessment and plan as written. Number of minutes spent on the visit:20 Time with Patient: Greater than 30
[2023-06-17 07:49] LABS: Glucose,Whole Blood 518 mg/dL (70-110)
[2023-06-17 08:14] LABS: Glucose,Whole Blood 438 mg/dL (70-110)
[2023-06-17 08:45] LABS: African American GFR (CKD) 74 (>60 ml/min/1.73 sqM); Blood Urea Nitrogen 29 mg/dL (9-20); Chloride 114 mmol/L (98-107); Non-African American GFR(CKD) 64 (>60 ml/min/1.73 sqM); Phosphorus 5.9 mg/dL (2.5-4.5); Potassium 5.3 mmol/L (3.5-5.1); Sodium 150 mmol/L (137-145)
[2023-06-17 09:06] LABS: Glucose,Whole Blood 443 mg/dL (70-110)
[2023-06-17 09:11] LABS: Carbon Dioxide <5 mmol/L (22-30); Glucose 542 mg/dL (74-99)
[2023-06-17 10:11] LABS: Glucose,Whole Blood 314 mg/dL (70-110)
[2023-06-17 11:06] LABS: Glucose,Whole Blood 260 mg/dL (70-110)
[2023-06-17] MEDS: D5-0.45% NACL WITH KCL 20MEQ/L 1,000 ML IV SCH ×2 (11:11→16:26)
[2023-06-17 12:11] LABS: Glucose,Whole Blood 207 mg/dL (70-110)
[2023-06-17 13:07] LABS: Glucose,Whole Blood 184 mg/dL (70-110)
[2023-06-17 14:04] LABS: Glucose,Whole Blood 186 mg/dL (70-110)
[2023-06-17 14:27] LABS: African American GFR (CKD) >90 (>60 ml/min/1.73 sqM); Anion Gap 10 mmol/L; Blood Urea Nitrogen 24 mg/dL (9-20); Carbon Dioxide 17 mmol/L (22-30); Chloride 114 mmol/L (98-107); Glucose 184 mg/dL (74-99); Non-African American GFR(CKD) >90 (>60 ml/min/1.73 sqM); Phosphorus 1.8 mg/dL (2.5-4.5); Potassium 4.4 mmol/L (3.5-5.1); Potassium 4.5 mmol/L (3.5-5.1); Sodium 141 mmol/L (137-145)
[2023-06-17 14:28] LABS: African American GFR (CKD) >90 (>60 ml/min/1.73 sqM); Anion Gap 13 mmol/L; Blood Urea Nitrogen 25 mg/dL (9-20); Calcium 8.2 mg/dL (8.4-10.2); Carbon Dioxide 15 mmol/L (22-30); Chloride 113 mmol/L (98-107); Glucose 182 mg/dL (74-99); Non-African American GFR(CKD) >90 (>60 ml/min/1.73 sqM); Sodium 141 mmol/L (137-145)
[2023-06-17 15:05] LABS: Glucose,Whole Blood 183 mg/dL (70-110)
[2023-06-17 16:21] LABS: Glucose,Whole Blood 156 mg/dL (70-110)
[2023-06-17] MEDS ORDERED: Phosphorus Replacement Protoco 1 EACH MISC MISCELLANE PRN (17:10)
[2023-06-17] MEDS ORDERED: POTAS-SOD-PHOS 278-164-250 MG 1 EACH PACKET PO ONE (17:10)
[2023-06-17 17:30] LABS: Glucose,Whole Blood 127 mg/dL (70-110)
[2023-06-17 18:05] LABS: African American GFR (CKD) >90 (>60 ml/min/1.73 sqM); Anion Gap 7 mmol/L; Blood Urea Nitrogen 23 mg/dL (9-20); Calcium 7.9 mg/dL (8.4-10.2); Carbon Dioxide 19 mmol/L (22-30); Chloride 110 mmol/L (98-107); Glucose 119 mg/dL (74-99); Non-African American GFR(CKD) >90 (>60 ml/min/1.73 sqM); Sodium 136 mmol/L (137-145)
[2023-06-17 18:18] LABS: Glucose,Whole Blood 121 mg/dL (70-110)
[2023-06-17 19:03] LABS: Glucose,Whole Blood 108 mg/dL (70-110)
[2023-06-17 20:35] LABS: Glucose,Whole Blood 142 mg/dL (70-110)
[2023-06-17 22:29] LABS: Glucose,Whole Blood 188 mg/dL (70-110)
[2023-06-17] MEDS ORDERED: INSULIN DETEMIR (LEVEMIR) 100 UNIT/ML SYR SQ SCH (23:00)
[2023-06-17] MEDS ORDERED: DEXTROSE 50% SYRINGE 50 ML IVP PRN ×2 (23:00)
[2023-06-17 23:30] LABS: Glucose,Whole Blood 206 mg/dL (70-110)
[2023-06-18 04:55] LABS: African American GFR (CKD) >90 (>60 ml/min/1.73 sqM); Anion Gap 4 mmol/L; Blood Urea Nitrogen 14 mg/dL (9-20); Calcium 8.2 mg/dL (8.4-10.2); Carbon Dioxide 22 mmol/L (22-30); Chloride 107 mmol/L (98-107); Glucose 148 mg/dL (74-99); Non-African American GFR(CKD) >90 (>60 ml/min/1.73 sqM); Potassium 3.8 mmol/L (3.5-5.1); Sodium 133 mmol/L (137-145)
[2023-06-18] MEDS ORDERED: Phosphorus Replacement Protoco 1 EACH MISC MISCELLANE PRN (05:05)
[2023-06-18] MEDS ORDERED: POTAS-SOD-PHOS 278-164-250 MG 1 EACH PACKET PO ONE (05:05)
[2023-06-18] MEDS ORDERED: Potassium Replacement Protocol 1 EACH MISC MISCELLANE PRN (05:06)
[2023-06-18 05:24] LABS: Glucose,Whole Blood 114 mg/dL (70-110)
[2023-06-18] MEDS: INSULIN ASPART (NovoLOG) 100 UNIT/ML VIAL SQ SCH ×8 (05:27→17:11)
[2023-06-18] MEDS ORDERED: POTASSIUM CHLORIDE ER 20 MEQ TAB.ER PO SCH (06:00)
[2023-06-18 07:49] LABS: Glucose,Whole Blood 59 mg/dL (70-110)
[2023-06-18 08:06] LABS: Glucose,Whole Blood 84 mg/dL (70-110)
[2023-06-18 09:20] LABS: Glucose,Whole Blood 139 mg/dL (70-110)
[2023-06-18 11:06] LABS: Glucose,Whole Blood 141 mg/dL (70-110)
--- NOTE | 2023-06-18 11:51 | P.PN ---
Subjective Progress Note Date: 06/18/23 Principal diagnosis: Acute diabetic ketoacidosis This is a 27-year-old white male with past medical history significant for type 1 diabetes mellitus and medication noncompliance. Patient has had numerous hospital admissions for diabetic ketoacidosis, most recent hospital admission was 5 days ago on 06/12/2022 for the same. Patient was brought in earlier this morning by EMS, he was confused and tachypneic. He answers some of my questions. Patient's blood sugars were elevated at home. Patient states that he was taking his insulin. Denies any abdominal pain, diarrhea, constipation, hematemesis. Denies any infectious symptoms. He was found to be in DKA. Serum bicarb was less than 5, anion gap unmeasurable, glucose 1114, and he was acetone positive. Patient has been started on the DKA protocol. Insulin is currently infusing at 6.4 units/h. He was also severely hyperkalemic on arrival, with a potassium of 6.5. Hyperacute T waves seen on EKG. He also received two amps of sodium bicarb. CBC on arrival showed some leukocytosis with a WBC count of 47.5, hemoglobin 11.9, hematocrit 44.3, platelets 730. He received 2 L normal saline bolus in the emergency room. Normal saline is currently infusing at 200 ml per hour. Most recent BMP shows sodium 145, potassium down to 5.9, chloride 107, serum bicarb still less than 5, anion gap unmeasurable, creatinine down to 2.05, most recent glucose 930. Patient is currently lying in bed, in no acute distress, able answer most of my questions. He is on room air. SpO2 is 99%. Blood pressure is normotensive after fluid resuscitation. He will be admitted to the intensive care unit once bed available. Patient was reevaluated today on 06/18/2023, doing well, relatively asymptomatic, his anion gap has closed, patient will be placed on insulin as per scale sliding scale coverage, and he will be placed on Lantus insulin. Basic metabolic profile is normal bicarb is 22 anion gap is only 4, and his BUN is 14 creatinine 0.65. Patient is not in any distress.On room air, O2 saturation 98% on room air with O2 saturation 98% Objective - Vital Signs Vital signs: Vital Signs Temp 98.1 F 06/18/23 07:45 Pulse 82 06/18/23 07:45 Resp 14 06/18/23 07:45 BP 129/92 06/18/23 07:45 Pulse Ox 98 06/18/23 07:45 FiO2 Intake & Output 06/17/23 06/18/23 06/18/23 18:59 06:59 18:59 Intake Total 1750.641 151.267 Output Total 988 800 Balance 762.641 -648.733 Intake: IV 1650 150 D5-0.45% NaCl with KCl 1050 150 20Meq/l 1,000 ml @ 150 mls/hr IV .[id number] [facility] Rx# :[id number] Sodium Chloride 0.9% 1, 600 000 ml @ 200 mls/hr IV . Q5H [facility] Rx#:[id number] Intake, IV Titration 100.641 1.267 Amount Insulin Regular 100 unit 100.641 1.267 In Sodium Chloride 0.9% 100 ml @ 0.1 UNITS/KG/HR 6.414 mls/hr IV .[id number] [facility] Rx#:[id number] Output: Urine 988 800 - Exam General: The patient is awake and alert, in no distress, and does not appear acutely ill. Skin: Skin is warm and dry and no rashes or lesions are noted. Eye: Pupils are equal, round and reactive to light, extra-ocular movements are intact; there is normal conjunctiva bilaterally. Ears, nose, mouth and throat: There are moist mucous membranes and no oral lesions. Neck: The neck is supple, there is no tenderness or JVD. Cardiovascular: There is a regular rate and rhythm. No murmur, rub or gallop is appreciated. Respiratory: Clear bilaterally no rhonchi no wheezes Gastrointestinal: Soft, non-distended, non-tender abdomen without masses or organomegaly noted. There is no rebound or guarding present. Bowel sounds are unremarkable. Back: There is no tenderness to palpation in the midline. There is no obvious deformity. Musculoskeletal: Normal ROM, no tenderness, There is no pedal edema. Neurological: CN II-XII intact, Cranial nerves III through XII are intact. Nonfocal Psychiatric: Cooperative, appropriate mood & affect, normal judgment. - Labs CBC & Chem 7: 06/17/23 02:38 06/18/23 04:07 Labs: Abnormal Lab Results - Last 24 Hours (Table) 06/17/23 06/17/23 06/17/23 Range/Units 12:10 13:05 14:01 Sodium (137-145) mmol/L Chloride 113 H (98-107) mmol/L Carbon Dioxide 15 L (22-30) mmol/L BUN 25 H (9-20) mg/dL Creatinine (0.66-1.25) mg/dL Glucose 182 H (74-99) mg/dL POC Glucose (mg/dL) 207 H 184 H (70-110) mg/dL Calcium 8.2 L (8.4-10.2) mg/dL Phosphorus (2.5-4.5) mg/dL 06/17/23 06/17/23 06/17/23 Range/Units 14:01 14:03 15:04 Sodium (137-145) mmol/L Chloride 114 H (98-107) mmol/L Carbon Dioxide 17 L (22-30) mmol/L BUN 24 H (9-20) mg/dL Creatinine (0.66-1.25) mg/dL Glucose 184 H (74-99) mg/dL POC Glucose (mg/dL) 186 H 183 H (70-110) mg/dL Calcium (8.4-10.2) mg/dL Phosphorus 1.8 L (2.5-4.5) mg/dL 06/17/23 06/17/23 06/17/23 Range/Units 16:18 17:26 17:29 Sodium 136 L (137-145) mmol/L Chloride 110 H (98-107) mmol/L Carbon Dioxide 19 L (22-30) mmol/L BUN 23 H (9-20) mg/dL Creatinine 0.65 L (0.66-1.25) mg/dL Glucose 119 H (74-99) mg/dL POC Glucose (mg/dL) 156 H 127 H (70-110) mg/dL Calcium 7.9 L (8.4-10.2) mg/dL Phosphorus (2.5-4.5) mg/dL 06/17/23 06/17/23 06/17/23 Range/Units 18:17 20:34 22:27 Sodium (137-145) mmol/L Chloride (98-107) mmol/L Carbon Dioxide (22-30) mmol/L BUN (9-20) mg/dL Creatinine (0.66-1.25) mg/dL Glucose (74-99) mg/dL POC Glucose (mg/dL) 121 H 142 H 188 H (70-110) mg/dL Calcium (8.4-10.2) mg/dL Phosphorus (2.5-4.5) mg/dL 06/17/23 06/18/23 06/18/23 Range/Units 23:27 04:07 04:07 Sodium 133 L (137-145) mmol/L Chloride (98-107) mmol/L Carbon Dioxide (22-30) mmol/L BUN (9-20) mg/dL Creatinine 0.65 L (0.66-1.25) mg/dL Glucose 148 H (74-99) mg/dL POC Glucose (mg/dL) 206 H (70-110) mg/dL Calcium 8.2 L (8.4-10.2) mg/dL Phosphorus 2.1 L (2.5-4.5) mg/dL 06/18/23 06/18/23 06/18/23 Range/Units 05:23 07:48 09:19 Sodium (137-145) mmol/L Chloride (98-107) mmol/L Carbon Dioxide (22-30) mmol/L BUN (9-20) mg/dL Creatinine (0.66-1.25) mg/dL Glucose (74-99) mg/dL POC Glucose (mg/dL) 114 H 59 L 139 H (70-110) mg/dL Calcium (8.4-10.2) mg/dL Phosphorus (2.5-4.5) mg/dL 06/18/23 Range/Units 11:05 Sodium (137-145) mmol/L Chloride (98-107) mmol/L Carbon Dioxide (22-30) mmol/L BUN (9-20) mg/dL Creatinine (0.66-1.25) mg/dL Glucose (74-99) mg/dL POC Glucose (mg/dL) 141 H (70-110) mg/dL Calcium (8.4-10.2) mg/dL Phosphorus (2.5-4.5) mg/dL Assessment and Plan Assessment: Impression: Acute DKA, resolved Severe anion gap metabolic acidosis, resolved Toxic metabolic encephalopathy, resolved Severe dehydration, resolved Hyperkalemia secondary to above, resolved Type 1 diabetes with medication noncompliance. Reactive leukocytosis secondary to DKA History of major depression Chronic ongoing nicotine dependence Recommendation: Reviewed the labs today Reviewed the medications on this patient today Will arrange for transfer out of the ICU Continue sliding scale insulin subcu as per scale/protocol Lantus insulin Advance diet as tolerated Will follow Time with Patient: Less than 30
[2023-06-18 14:07] VITALS: BMI 17.4
[2023-06-18 16:09] LABS: Glucose,Whole Blood 142 mg/dL (70-110)
[2023-06-18 16:57] VITALS: BP 120/83; PULSE 80; RESP 16; TEMP 98.4
--- NOTE | 2023-06-18 21:46 | DS ---
DISCHARGE SUMMARY CHIEF COMPLAINT: Diabetic ketoacidosis. HISTORY OF PRESENT ILLNESS AND PHYSICAL EXAMINATION: Details of this man's history and physical can be found in the initial workup. LABORATORY STUDIES: While he was in the hospital, he had laboratory studies, details of which can be found in the laboratory section of his chart. COURSE IN THE HOSPITAL: After admission, he was placed on bedrest, started on intravenous fluids and placed in ICU with the DKA protocol. His gap closed and he was doing well and felt that he could be discharged home on the . FINAL DIAGNOSIS: Diabetic ketoacidosis. OPERATIONS: None. CONSULTATION: Intensive Medicine. MMODL / IJN: [id number] /
--- NOTE | 2023-06-18 22:00 | HP ---
HISTORY AND PHYSICAL CHIEF COMPLAINT: DKA and coma. HISTORY OF PRESENT ILLNESS: This 27-year-old came back in the emergency room again with a pH around 6.8 and a blood sugar in the neighborhood of 1200. REVIEW OF SYSTEMS: Not obtainable. PAST MEDICAL HISTORY, FAMILY HISTORY AND PERSONAL AND SOCIAL HISTORIES: Unchanged. PHYSICAL EXAMINATION: VITAL SIGNS: Normal except for his tachycardia. HEENT: Head, ears, eyes, nose, and mouth are normal. CHEST: Clear. CARDIAC: Demonstrates tachycardia. ABDOMEN: Soft and flat. EXTREMITIES: Normal. NEUROLOGICAL: He is comatose. DIAGNOSES: Admitted to the hospital with diagnoses, 1. Diabetic ketoacidosis. 2. Coma. 3. Depression. PLAN: Admit to ICU. MMODL / IJN: [id number] /
== END 2023-06-18 18:02 | disposition home or self-care (01) | DRG 420 ==
LOC: EC 02:20 → 3SCARD 03:17 → 2SICU 05:17 → 4SSUR 06-18 15:51
PROVIDERS: ADMIT Family Medicine; ATTEND Family Medicine
DX: E10.11 Type 1 diabetes mellitus with ketoacidosis with coma (principal); E86.0 Dehydration; G92.8 Other toxic encephalopathy; E87.5 Hyperkalemia; D72.828 Other elevated white blood cell count; N17.9 Acute kidney failure, unspecified; F12.90 Cannabis use, unspecified, uncomplicated; J45.909 Unspecified asthma, uncomplicated; L30.9 Dermatitis, unspecified; F41.9 Anxiety disorder, unspecified; F32.A Depression, unspecified; E83.39 Other disorders of phosphorus metabolism; F17.200 Nicotine dependence, unspecified, uncomplicated; Z91.148 Patient's other noncompliance with medication regimen for other reason; Z79.899 Other long term (current) drug therapy; Z79.4 Long term (current) use of insulin
CPT/HCPCS: 36415; 36600; 80048; 80051; 80053; 81001; 82009; 82140; 82565; 82805; 82947; 83605; 83735; 84100; 84520; 85025; 93005; 96361; 96374; 99285; 99291

== ENCOUNTER 2023-06-19 14:08 | Inpatient (IN) | payer OTHER ==
[2023-06-19 14:25] LABS: Glucose,Whole Blood 446 mg/dL (70-110)
[2023-06-19] MEDS ORDERED: SODIUM CHLORIDE 0.9% 2,000 ML IV STA (15:14)
--- NOTE | 2023-06-19 15:16 | ED ---
General Adult HPI - General Source: patient, RN notes reviewed Mode of arrival: ambulatory Limitations: no limitations <Cirilo Raymond - Last Filed: 06/19/23 15:15> - General Source: patient, RN notes reviewed, old records reviewed <Chang Peterson - Last Filed: 06/19/23 20:27> - General Chief complaint: Nausea/Vomiting/Diarrhea Stated complaint: high blood sugar vomiting Time Seen by Provider: 06/19/23 15:15 - History of Present Illness Initial comments: 27-year-old male presents emergency department complaint of hyperglycemia, nausea vomiting. Patient is well-known to the emergency department is a type I diabetic. Patient was discharged in the hospital yesterday for DKA. Patient states he is continue to have nausea vomiting and elevated blood sugar. (Cirilo Raymond) Patient is a 27-year-old male who presents emergency department for feeling unwell. Has a history of poorly controlled diabetes. Recurrently presents to the emergency department for DKA. Was just discharged yesterday. Began experiencing similar symptoms with abdominal discomfort, nausea, vomiting, lightheadedness. Presents for further evaluation at this time. Patient presents originally as a quick note. I evaluated patient after he was placed in the room. Denies any significant abdominal pain at this time. (Jeremie Peterson) - Related Data Home Medications Medication Instructions Recorded Confirmed Insulin Detemir (Levemir) [Levemir] 30 unit SQ HS 03/07/23 06/19/23 Ergocalciferol [Vitamin D2 (1250 1,250 mcg PO Q30D 04/29/23 06/19/23 Mcg = 95980 Iu)] Famotidine [Pepcid] 20 mg PO BID 04/29/23 06/19/23 Gabapentin 600 mg PO TID 04/29/23 06/19/23 Insulin Lispro [Insulin Lispro 7 units SQ AC-TID 04/29/23 06/19/23 Kwikpen U-100] Losartan Potassium 50 mg PO DAILY 04/29/23 06/19/23 Mirtazapine 7.5 mg PO HS 04/29/23 06/19/23 Allergies Allergy/AdvReac Type Severity Reaction Status Date / Time No Known Allergies Allergy Verified 06/19/23 14:20 Review of Systems ROS Other: All systems not noted in ROS Statement are negative. <Cirilo Raymond - Last Filed: 06/19/23 15:15> ROS Other: All systems not noted in ROS Statement are negative. <Chang Peterson - Last Filed: 06/19/23 20:27> ROS Statement: Those systems with pertinent positive or pertinent negative responses have been documented in the HPI. Review of Systems: CONST: Denies fever EYES: Denies blurry vision ENT: Denies nasal congestion C/V: Denies Chest pain RESP: Denies shortness of breath GI: Endorses nausea and vomiting : Denies dysuria SKIN: Denies rash. MSK: Denies joint pain. NEURO: Denies headache (Chang Peterson) Past Medical History Past Medical History: Asthma, Diabetes Mellitus, Neurologic Disorder, Skin Disorder Additional Past Medical History / Comment(s): IDDM type I, neuropathy bilateral feet, DKA, eczema. History of Any Multi-Drug Resistant Organisms: None Reported Past Surgical History: Adenoidectomy Additional Past Surgical History / Comment(s): 2003 Recent EGD- gastritis Past Anesthesia/Blood Transfusion Reactions: No Reported Reaction Past Psychological History: Anxiety, Depression Smoking Status: Former smoker Past Alcohol Use History: None Reported Past Drug Use History: Marijuana - Past Family History Mother Family Medical History: CVA/TIA Additional Family Medical History / Comment(s): TIA Father Family Medical History: Hyperlipidemia, Hypertension Additional Family Medical History / Comment(s): . <Cirilo Raymond - Last Filed: 06/19/23 15:15> General Exam Limitations: no limitations <Cirilo Raymond - Last Filed: 06/19/23 15:15> <Chang Peterson - Last Filed: 06/19/23 20:27> - General Exam Comments Initial Comments: Visual Physical Exam Vital signs reviewed General: Well-appearing, nontoxic, no acute distress. Head: Normocephalic, atraumatic Eyes: PERRLA, EOMI ENT: Airway patent Chest: Nonlabored breathing Skin: No visual rash, normal skin tone Neuro: Alert and oriented 3 Musculoskeletal: No gross abnormalities (Cirilo Raymond) General: Appears dehydrated. Dry mucous membranes. HEAD: Normal with no signs of head trauma. EYES: PERRLA, EOMI, conjunctiva normal, no discharge. ENT: Hearing grossly intact, normal oropharynx. Dry mucous membranes RESPIRATORY: Clear breath sounds bilaterally. No wheezes, rales, or rhonchi. C/V: Regular rate and rhythm. S1 and S2 auscultated, no edema, peripheral pulses 2+ and intact throughout ABD: Abd is soft, nontender, nondistended EXT: Normal range of motion, no obvious deformity SKIN: No rashes or lesions observed on exposed skin. NEURO: Alert and oriented x 4. (Chang Peterson) Course Vital Signs 06/19/23 06/19/23 06/19/23 14:20 17:03 19:10 Temperature 97.1 F L 97.4 F L 98.1 F Pulse Rate 122 H 111 H 110 H Respiratory 18 18 18 Rate Blood Pressure 119/79 109/76 106/65 O2 Sat by Pulse 100 100 100 Oximetry Medical Decision Making <Cirilo Raymond - Last Filed: 06/19/23 15:15> - Lab Data Result diagrams: 06/19/23 15:25 06/19/23 15:25 - EKG Data -: EKG Interpreted by Me <Chang Peterson - Last Filed: 06/19/23 20:27> - Medical Decision Making I completed the quick note portion of this chart signed Cirilo Raymond PA-C (Cirilo Raymond) Was pt. sent in by a medical professional or institution ([facility], [employer], urgent care, hospital, or detention...) When possible be specific @ -No Did you speak to anyone other than the patient for history (EMS, parent, family, police, friend...)? What history was obtained from this source @ -No Did you review nursing and triage notes (agree or disagree)? Why? @ -I reviewed and agree with nursing and triage notes Were old charts reviewed (outside hosp., previous admission, EMS record, old EKG, old radiological studies, urgent care reports/EKG's, detention records)? Report findings @ -Old charts reviewed Differential Diagnosis (chest pain, altered mental status, abdominal pain women, abdominal pain men, vaginal bleeding, weakness, fever, dyspnea, syncope, headache, dizziness, GI bleed, back pain, seizure, CVA, palpatations, mental health, musculoskeletal)? @ -DKA, dehydration, electrolyte abnormality. This list is not all inclusive. EKG interpreted by me (3pts min.). @ -As above X-rays interpreted by me (1pt min.). @ -None done CT interpreted by me (1pt min.). @ -None done U/S interpreted by me (1pt. min.). @ -None done What testing was considered but not performed or refused? (CT, X-rays, U/S, labs)? Why? @ -I did offer CT imaging due to the elevated lipase. This was refused by the patient. I also spoke with Dr. Valenzuela regarding imaging and both agreed to defer at this time. Likely secondary to his poorly controlled diabetes. He has no significant abdominal pain. Elevated lipase likely secondary to poorly controlled diabetes. What meds were considered but not given or refused? Why? @ -None Did you discuss the management of the patient with other professionals (professionals i.e. , PA, [employer], lab, RT, psych nurse, social sciences chair, machine lay out worker, teacher, first aid officer, shelter case manager)? Give summary @ -No Was smoking cessation discussed for >3mins.? @ -No Was critical care preformed (if so, how long)? @ -Yes, 35 minutes Were there social determinants of health that impacted care today? How? (Homelessness, low income, unemployed, alcoholism, drug addiction, tr ansportation, low edu. Level, literacy, decrease access to med. care, [facility], rehab)? @ -No Was there de-escalation of care discussed even if they declined (Discuss DNR or withdrawal of care, Hospice)? DNR status @ -No What co-morbidities impacted this encounter? (DM, HTN, Smoking, COPD, CAD, Cancer, CVA, ARF, Chemo, Hep., AIDS, mental health diagnosis, sleep apnea, morbid obesity)? @ -Poorly controlled type I diabetes Was patient admitted / discharged? Hospital course, mention meds given and r oute, prescriptions, significant lab abnormalities, going to OR and other pertinent info. @ -Based on the patient's presentation and physical exam, patient presents emergency department complaining of similar complaints as he normally presents when he is in DKA. Workup started in triage. Remarkable for an anion gap metabolic acidosis, with anion gap of 19. Carbon dioxide is 15. Blood sugars f ormed at 78. 4+ ketones in the urine and acetone positive. Lipase is elevated to 2500. EKG shows no signs of acute ischemia. At this time patient was placed on DKA protocol. He was given multiple fluid boluses. We did discuss the opportunity of obtaining CT imaging at this time. Asked that I speak with Dr. Valenzuela regarding this. Lipase is likely secondary to his poorly controlled diabetes. I spoke with both patient and Dr. Valenzuela regarding possible CT imaging and both agreed to defer at this time. Patient will be admitted to Dr. Valenzuela and serious condition for DKA. Undiagnosed new problem with uncertain prognosis? @ -No Drug Therapy requiring intensive monitoring for toxicity (Heparin, Nitro, Insulin, Cardizem)? @ -No Were any procedures done? @ -No Diagnosis/symptom? @ -DKA Acute, or Chronic, or Acute on Chronic? @ -Acute Uncomplicated (without systemic symptoms) or Complicated (systemic symptoms)? @ -Complicated Side effects of treatment? @ -No Exacerbation, Progression, or Severe Exacerbation? @ -No Poses a threat to life or bodily function? How? (Chest pain, [place], MT, pneumonia, PE, COPD, DKA, ARF, appy, cholecystitis, CVA, Diverticulitis, Homicidal, Suicid al, threat to staff... and all critical care pts) @ -Yes (Chang Peterson) - Lab Data Lab Results 06/19/23 06/19/23 06/19/23 Range/Units 14:24 15:25 15:25 WBC 7.7 (3.8-10.6) k/uL RBC 4.41 (4.30-5.90) m/uL Hgb 12.4 L (13.0-17.5) gm/dL Hct 39.1 (39.0-53.0) % MCV 88.6 D (80.0-100.0) fL MCH 28.0 (25.0-35.0) pg MCHC 31.7 (31.0-37.0) g/dL RDW 16.2 H (11.5-15.5) % Plt Count 351 (150-450) k/uL MPV 7.6 Neutrophils % 79 % Lymphocytes % 15 % Monocytes % 3 % Eosinophils % 1 % Basophils % 1 % Neutrophils # 6.0 (1.3-7.7) k/uL Lymphocytes # 1.2 (1.0-4.8) k/uL Monocytes # 0.2 (0-1.0) k/uL Eosinophils # 0.1 (0-0.7) k/uL Basophils # 0.0 (0-0.2) k/uL Hypochromasia Moderate Anisocytosis Slight VBG pH (7.31-7.41) VBG pCO2 (37-51) mmHg VBG HCO3 (24-28) mmol/L Sodium (137-145) mmol/L Potassium (3.5-5.1) mmol/L Chloride (98-107) mmol/L Carbon Dioxide (22-30) mmol/L Anion Gap mmol/L BUN (9-20) mg/dL Creatinine (0.66-1.25) mg/dL Est GFR (CKD-EPI)AfAm (>60 ml/min/1.73 sqM) Est GFR (CKD-EPI)NonAf (>60 ml/min/1.73 sqM) Glucose (74-99) mg/dL POC Glucose (mg/dL) 446 H (70-110) mg/dL POC Glu Paper Bag Maker ID Mila Wong Plasma Lactic Acid Len (0.7-2.0) mmol/L Calcium (8.4-10.2) mg/dL Magnesium (1.6-2.3) mg/dL Total Bilirubin (0.2-1.3) mg/dL AST (17-59) U/L ALT (4-49) U/L Alkaline Phosphatase (38-126) U/L Total Protein (6.3-8.2) g/dL Albumin (3.5-5.0) g/dL Lipase (23-300) U/L Urine Color Colorless Urine Appearance Clear (Clear) Urine pH 5.5 (5.0-8.0) Ur Specific [place] 1.029 (1.001-1.035) Urine Protein Negative (Negative) Urine Glucose (UA) 4+ H (Negative) Urine Ketones 4+ H (Negative) Urine Blood Negative (Negative) Urine Nitrite Negative (Negative) Urine Bilirubin Negative (Negative) Urine Urobilinogen <2.0 (<2.0) mg/dL Ur Leukocyte Esterase Negative (Negative) Acetone, Qual (Negative) 06/19/23 06/19/23 06/19/23 Range/Units 15:25 15:25 15:25 WBC (3.8-10.6) k/uL RBC (4.30-5.90) m/uL Hgb (13.0-17.5) gm/dL Hct (39.0-53.0) % MCV (80.0-100.0) fL MCH (25.0-35.0) pg MCHC (31.0-37.0) g/dL RDW (11.5-15.5) % Plt Count (150-450) k/uL MPV Neutrophils % % Lymphocytes % % Monocytes % % Eosinophils % % Basophils % % Neutrophils # (1.3-7.7) k/uL Lymphocytes # (1.0-4.8) k/uL Monocytes # (0-1.0) k/uL Eosinophils # (0-0.7) k/uL Basophils # (0-0.2) k/uL Hypochromasia Anisocytosis VBG pH 7.42 H (7.31-7.41) VBG pCO2 26 L (37-51) mmHg VBG HCO3 17 L (24-28) mmol/L Sodium 137 (137-145) mmol/L Potassium 4.8 (3.5-5.1) mmol/L Chloride 103 (98-107) mmol/L Carbon Dioxide 15 L (22-30) mmol/L Anion Gap 19 mmol/L BUN 21 H (9-20) mg/dL Creatinine 0.69 (0.66-1.25) mg/dL Est GFR (CKD-EPI)AfAm >90 (>60 ml/min/1.73 sqM) Est GFR (CKD-EPI)NonAf >90 (>60 ml/min/1.73 sqM) Glucose 478 H (74-99) mg/dL POC Glucose (mg/dL) (70-110) mg/dL POC Glu Paper Bag Maker ID Plasma Lactic Acid Len 1.1 (0.7-2.0) mmol/L Calcium 9.1 (8.4-10.2) mg/dL Magnesium 2.2 (1.6-2.3) mg/dL Total Bilirubin 0.6 (0.2-1.3) mg/dL AST 29 (17-59) U/L ALT 32 (4-49) U/L Alkaline Phosphatase 127 H (38-126) U/L Total Protein 6.3 (6.3-8.2) g/dL Albumin 4.0 (3.5-5.0) g/dL Lipase 2469 H (23-300) U/L Urine Color Urine Appearance (Clear) Urine pH (5.0-8.0) Ur Specific [place] (1.001-1.035) Urine Protein (Negative) Urine Glucose (UA) (Negative) Urine Ketones (Negative) Urine Blood (Negative) Urine Nitrite (Negative) Urine Bilirubin (Negative) Urine Urobilinogen (<2.0) mg/dL Ur Leukocyte Esterase (Negative) Acetone, Qual Positive (Negative) - EKG Data EKG Comments: 12-lead Electrocardiogram Interpretation Note EKG was reviewed and interpreted by myself. 12-lead ECG performed at 1924 is interpreted by me as revealing sinus tachycardia at a rate of 107 beats per minute. Right axis deviation. WA interval is 148 ms, QRS duration is 90 ms, QTc is 414 ms.. There were no ST or T wave abnormalities to suggest myocardial ischemia or injury. R wave progression across the precordium was satisfactory. By my interpretation this EKG is non-diagnostic for acute ischemia. (Chang Peterson) Critical Care Time Critical Care Time: Yes Total Critical Care Time: 35 <Chang Peterson - Last Filed: 06/19/23 20:27> Disposition <Cirilo Raymond - Last Filed: 06/19/23 15:15> Time of Disposition: 17:34 <Chang Peterson - Last Filed: 06/19/23 20:27> Clinical Impression: DKA (diabetic ketoacidosis) Disposition: ADMITTED IP TO THIS HOSP Condition: Serious
[2023-06-19 15:38] LABS: VBG PH 7.42 (7.31-7.41)
[2023-06-19 15:39] LABS: Anisocytosis Slight; Basophils % (A) 1 %; Eosinophils # (A) 0.1 k/uL (0-0.7); Eosinophils % (A) 1 %; HCT 39.1 % (39.0-53.0); HGB 12.4 gm/dL (13.0-17.5); Hypochromasia Moderate; Lymphocytes # (A) 1.2 k/uL (1.0-4.8); Lymphocytes % (A) 15 %; MCHC 31.7 g/dL (31.0-37.0); Mean Platelet Volume 7.6; Monocytes # (A) 0.2 k/uL (0-1.0); Monocytes % (A) 3 %; Neutrophils % (A) 79 %; Platelet Count 351 k/uL (150-450); RBC 4.41 m/uL (4.30-5.90); RDW 16.2 % (11.5-15.5); WBC 7.7 k/uL (3.8-10.6)
[2023-06-19 15:45] LABS: MCV 88.6 fL (80.0-100.0)
[2023-06-19 15:56] LABS: Appearance,Urine Clear (Clear); Bilirubin,Urine Negative (Negative); Blood,Urine Negative (Negative); Color,Urine Colorless; Glucose,Urine (UA) 4+ (Negative); Leukocyte Esterase,Urine Negative (Negative); Nitrite,Urine Negative (Negative); PH, Urine 5.5 (5.0-8.0); Protein,Urine Negative (Negative); Specific Gravity,Urine 1.029 (1.001-1.035); Urobilinogen,Urine <2.0 mg/dL (<2.0)
[2023-06-19 15:58] LABS: Ketones,Urine 4+ (Negative)
[2023-06-19 16:09] LABS: ALT 32 U/L (4-49); AST 29 U/L (17-59); African American GFR (CKD) >90 (>60 ml/min/1.73 sqM); Alkaline Phosphatase 127 U/L (38-126); Anion Gap 19 mmol/L; Blood Urea Nitrogen 21 mg/dL (9-20); Calcium 9.1 mg/dL (8.4-10.2); Carbon Dioxide 15 mmol/L (22-30); Chloride 103 mmol/L (98-107); Glucose 478 mg/dL (74-99); Magnesium 2.2 mg/dL (1.6-2.3); Non-African American GFR(CKD) >90 (>60 ml/min/1.73 sqM); Potassium 4.8 mmol/L (3.5-5.1); Sodium 137 mmol/L (137-145); Total Bilirubin 0.6 mg/dL (0.2-1.3); Total Protein 6.3 g/dL (6.3-8.2)
[2023-06-19 16:44] LABS: Lipase 2469 U/L (23-300)
[2023-06-19] MEDS ORDERED: DEXTROSE 50% SYRINGE 50 ML IVP PRN ×2 (17:16)
[2023-06-19] MEDS ORDERED: INSULIN REGULAR BOLUS (FROM DRIP BAG) IV ONE (17:16)
[2023-06-19] MEDS ORDERED: Potassium Replacement Protocol 1 EACH MISC MISCELLANE PRN (17:16)
[2023-06-19] MEDS ORDERED: Magnesium Replacement Protocol 1 EACH MISC MISCELLANE PRN (17:16)
[2023-06-19] MEDS ORDERED: ONDANSETRON 4 MG/2 ML VIAL IVP PRN (17:34)
[2023-06-19] MEDS ORDERED: ACETAMINOPHEN TAB 325 MG TAB PO PRN (17:34)
[2023-06-19] MEDS ORDERED: NALOXONE 0.4 MG/ML 1 ML VIAL IV PRN (17:34)
[2023-06-19] MEDS: SODIUM CHLORIDE 0.9% 1,000 ML IV SCH ×2 (17:47→22:45)
[2023-06-19] MEDS: INSULIN REGULAR 100 UNIT in SODIUM CHLORIDE 0.9% 100 ML IV SCH ×2 (18:05→21:31)
[2023-06-19 18:06] LABS: Glucose,Whole Blood 395 mg/dL (70-110)
[2023-06-19 19:03] LABS: Glucose,Whole Blood 345 mg/dL (70-110)
[2023-06-19 20:20] LABS: Glucose,Whole Blood 223 mg/dL (70-110)
[2023-06-19 20:52] LABS: African American GFR (CKD) >90 (>60 ml/min/1.73 sqM); Anion Gap 17 mmol/L; Blood Urea Nitrogen 18 mg/dL (9-20); Carbon Dioxide 12 mmol/L (22-30); Chloride 112 mmol/L (98-107); Glucose 238 mg/dL (74-99); Non-African American GFR(CKD) >90 (>60 ml/min/1.73 sqM); Potassium 4.1 mmol/L (3.5-5.1); Sodium 141 mmol/L (137-145)
[2023-06-19 21:36] LABS: Glucose,Whole Blood 148 mg/dL (70-110)
[2023-06-19] MEDS: D5-0.45% NACL WITH KCL 20MEQ/L 1,000 ML IV SCH (22:03)
[2023-06-19 22:33] LABS: Glucose,Whole Blood 118 mg/dL (70-110)
[2023-06-19 23:32] LABS: Glucose,Whole Blood 142 mg/dL (70-110)
[2023-06-20 00:36] LABS: Glucose,Whole Blood 140 mg/dL (70-110)
[2023-06-20 00:47] LABS: African American GFR (CKD) >90 (>60 ml/min/1.73 sqM); Anion Gap 2 mmol/L; Blood Urea Nitrogen 16 mg/dL (9-20); Carbon Dioxide 25 mmol/L (22-30); Chloride 107 mmol/L (98-107); Glucose 132 mg/dL (74-99); Non-African American GFR(CKD) >90 (>60 ml/min/1.73 sqM); Phosphorus 3.1 mg/dL (2.5-4.5); Potassium 4.4 mmol/L (3.5-5.1); Sodium 134 mmol/L (137-145)
[2023-06-20] MEDS: HEPARIN SODIUM,PORCINE 5,000 UNIT/ML 1 ML VIAL SQ SCH ×3 (00:55→08:54)
[2023-06-20 01:33] LABS: Glucose,Whole Blood 148 mg/dL (70-110)
[2023-06-20 02:37] LABS: Glucose,Whole Blood 161 mg/dL (70-110)
[2023-06-20] MEDS: SODIUM CHLORIDE 0.9% 1,000 ML IV SCH (03:54)
[2023-06-20 04:06] LABS: Glucose,Whole Blood 229 mg/dL (70-110)
[2023-06-20] MEDS: D5-0.45% NACL WITH KCL 20MEQ/L 1,000 ML IV SCH ×2 (04:22→05:00)
[2023-06-20 05:03] LABS: Glucose,Whole Blood 307 mg/dL (70-110)
--- NOTE | 2023-06-20 05:19 | HP ---
HISTORY AND PHYSICAL CHIEF COMPLAINT: Nausea, vomiting, and diabetic ketoacidosis. HISTORY OF PRESENT ILLNESS: This is another of many admissions for this noncompliant young man. He was discharged yesterday with DKA. He is back in with nausea, vomiting, and his anion gap is greater than 20. Blood sugar was over 400. His lipase is 2400 however. REVIEW OF SYSTEMS: Unremarkable other than his nausea. PAST MEDICAL HISTORY, FAMILY HISTORY PERSONAL AND SOCIAL HISTORIES: All otherwise unremarkable or unchanged. PHYSICAL EXAMINATION: VITAL SIGNS: Normal. HEENT: Head, ears, eyes, nose, mouth and normal. CHEST: Clear. CARDIAC: Normal. ABDOMEN: Soft, nontender, and there are no masses or visceromegaly. EXTREMITIES: Normal. NEUROLOGICAL: He is intact. DIAGNOSES: He is admitted to the hospital with diagnoses: 1. Diabetic ketoacidosis. 2. Intractable nausea and vomiting. 3. Pancreatitis. PLAN: 1. Bedrest. 2. IV fluids. 3. Control blood sugars. 4. Work up his pancreatitis which is probably due to hypertriglyceridemia. MMODL / IJN: [id number] /
[2023-06-20 05:54] LABS: Glucose,Whole Blood 298 mg/dL (70-110)
[2023-06-20 06:56] VITALS: RESP 18
[2023-06-20 07:01] LABS: Glucose,Whole Blood 222 mg/dL (70-110)
[2023-06-20 07:39] LABS: Anisocytosis Slight; Basophils # (A) 0.1 k/uL (0-0.2); Basophils % (A) 1 %; Eosinophils # (A) 0.3 k/uL (0-0.7); Eosinophils % (A) 3 %; HCT 32.5 % (39.0-53.0); HGB 10.4 gm/dL (13.0-17.5); Hypochromasia Slight; Lymphocytes # (A) 2.5 k/uL (1.0-4.8); Lymphocytes % (A) 32 %; MCH 28.3 pg (25.0-35.0); MCV 88.3 fL (80.0-100.0); Mean Platelet Volume 6.9; Monocytes # (A) 0.3 k/uL (0-1.0); Monocytes % (A) 4 %; Neutrophils # (A) 4.5 k/uL (1.3-7.7); Neutrophils % (A) 58 %; Platelet Count 319 k/uL (150-450); RBC 3.68 m/uL (4.30-5.90); RDW 16.3 % (11.5-15.5); WBC 7.8 k/uL (3.8-10.6)
[2023-06-20 08:00] LABS: African American GFR (CKD) >90 (>60 ml/min/1.73 sqM); Anion Gap 10 mmol/L; Blood Urea Nitrogen 12 mg/dL (9-20); Calcium 8.2 mg/dL (8.4-10.2); Carbon Dioxide 22 mmol/L (22-30); Chloride 99 mmol/L (98-107); Glucose 272 mg/dL (74-99); Non-African American GFR(CKD) >90 (>60 ml/min/1.73 sqM); Potassium 4.8 mmol/L (3.5-5.1); Sodium 131 mmol/L (137-145)
[2023-06-20 08:04] LABS: Glucose,Whole Blood 227 mg/dL (70-110)
[2023-06-20 09:08] VITALS: BP 138/109; PULSE 82; TEMP 97.7
[2023-06-20 09:13] LABS: Glucose,Whole Blood 204 mg/dL (70-110)
[2023-06-20 10:21] LABS: Glucose,Whole Blood 209 mg/dL (70-110)
[2023-06-20 11:47] VITALS: BMI 17.4
--- NOTE | 2023-06-24 19:22 | DS ---
DISCHARGE SUMMARY CHIEF COMPLAINT: Diabetic ketoacidosis. HISTORY OF PRESENT ILLNESS AND PHYSICAL EXAMINATION: Details of this man's history and physical can be found in the initial workup. LABORATORY STUDIES: While in the hospital, he had laboratory studies, details of which can be found in the laboratory section of his chart. COURSE IN HOSPITAL: After admission, he was placed on bedrest, started on intravenous fluids hand and started on DKA protocol. He did well and gap closed, and it was felt he could be discharged. He will go home on his usual activity, diet, and instructions on insulin which he normally does not take. FINAL DIAGNOSES: 1. DKA. 2. Depression. OPERATIONS: None. CONSULTATIONS: None, he is improved. MMODL / IJN: [id number] /
--- NOTE | 2023-06-24 22:16 | HP ---
HISTORY AND PHYSICAL CHIEF COMPLAINT: DKA. HISTORY OF PRESENT ILLNESS: This is another admission for this 27-year-old white male who is seen in the hospital almost weekly now. He is back in with diabetic ketoacidosis. He will not take insulin. REVIEW OF SYSTEMS: Not reliably obtained. PAST MEDICAL HISTORY, FAMILY HISTORY, AND PERSONAL AND SOCIAL HISTORY: All unchanged. PHYSICAL EXAMINATION: VITAL SIGNS: Blood pressure 110/55 with a pulse of 106, respirations of 36. He is afebrile. GENERAL: He appeared to be dehydrated and lethargic. HEENT: Head, ears, eyes, nose, mouth and throat were normal. CHEST: Clear. CARDIAC: Normal. ABDOMEN: Soft, nontender. EXTREMITIES: Normal. IMPRESSION: 1. Diabetic ketoacidosis. 2. Dehydration. 3. Depression. PLAN: DKA protocol. MMODL / IJN: [id number] /
== END 2023-06-20 11:44 | disposition left against medical advice (07) | DRG 420 ==
LOC: EC 14:08 → 3SCARD 17:34
PROVIDERS: ADMIT Family Medicine; ATTEND Family Medicine
DX: E10.10 Type 1 diabetes mellitus with ketoacidosis without coma (principal); K85.90 Acute pancreatitis without necrosis or infection, unspecified; E78.1 Pure hyperglyceridemia; E86.0 Dehydration; Z91.199 Patient's noncompliance with other medical treatment and regimen due to unspecified reason; Z87.891 Personal history of nicotine dependence; Z79.4 Long term (current) use of insulin
CPT/HCPCS: 36415; 80048; 80051; 80053; 81003; 82009; 82565; 82803; 82947; 83605; 83690; 83735; 84100; 84520; 85025; 93005; 96361; 96365; 96366; 99291

== ENCOUNTER 2023-06-21 09:12 | Inpatient (IN) | payer OTHER ==
[2023-06-21] MEDS ORDERED: INSULIN REGULAR BOLUS (FROM DRIP BAG) IV ONE (09:18)
[2023-06-21] MEDS ORDERED: SODIUM CHLORIDE 0.9% 1,000 ML IV STA (09:19)
--- NOTE | 2023-06-21 09:22 | ED ---
General Adult HPI - General Stated complaint: Hyperglycemia Time Seen by Provider: 06/21/23 09:18 Source: EMS Mode of arrival: EMS Limitations: altered mental status, physical limitation - History of Present Illness Initial comments: Patient is a 27-year-old male presenting to the emergency department by EMS with concerns for hyperglycemia. Patient is well-known to the hospital with recurrent visits and admissions. Patient is a poorly controlled diabetic. Patient reportedly was vomiting. Patient is drowsy and provides little history. - Related Data Home Medications Medication Instructions Recorded Confirmed Insulin Detemir (Levemir) [Levemir] 30 unit SQ HS 03/07/23 06/19/23 Ergocalciferol [Vitamin D2 (1250 1,250 mcg PO Q30D 04/29/23 06/19/23 Mcg = 43528 Iu)] Famotidine [Pepcid] 20 mg PO BID 04/29/23 06/19/23 Gabapentin 600 mg PO TID 04/29/23 06/19/23 Insulin Lispro [Insulin Lispro 7 units SQ AC-TID 04/29/23 06/19/23 Kwikpen U-100] Losartan Potassium 50 mg PO DAILY 04/29/23 06/19/23 Mirtazapine 7.5 mg PO HS 04/29/23 06/19/23 Allergies Allergy/AdvReac Type Severity Reaction Status Date / Time No Known Allergies Allergy Verified 06/19/23 14:20 Review of Systems ROS Statement: Those systems with pertinent positive or pertinent negative responses have been documented in the HPI. ROS Other: All systems not noted in ROS Statement are negative. Gastrointestinal: Reports: nausea, vomiting Past Medical History Past Medical History: Asthma, Diabetes Mellitus, Neurologic Disorder, Skin Disorder Additional Past Medical History / Comment(s): IDDM type I, neuropathy bilateral feet, DKA, eczema. History of Any Multi-Drug Resistant Organisms: None Reported Past Surgical History: Adenoidectomy Additional Past Surgical History / Comment(s): 2003 Recent EGD- gastritis Past Anesthesia/Blood Transfusion Reactions: No Reported Reaction Past Psychological History: Anxiety, Depression Smoking Status: Former smoker Past Alcohol Use History: None Reported Past Drug Use History: Marijuana - Past Family History Mother Family Medical History: CVA/TIA Additional Family Medical History / Comment(s): TIA Father Family Medical History: Hyperlipidemia, Hypertension Additional Family Medical History / Comment(s): . General Exam Limitations: altered mental status General appearance: other (Patient is drowsy. Limited interaction. Positive gag reflex. Patient does later awakened and follow simple commands) Head exam: Present: atraumatic Eye exam: Present: normal appearance, PERRL ENT exam: Present: mucous membranes dry Neck exam: Present: normal inspection Respiratory exam: Present: normal lung sounds bilaterally Cardiovascular Exam: Present: regular rate, normal rhythm GI/Abdominal exam: Present: soft. Absent: tenderness Extremities exam: Present: normal inspection Neurological exam: Present: altered Expanded Neurological exam: Present: protecting the airway Eye Response: (4) open spontaneously Motor Response: (4) withdraws to pain Verbal Response: incomprehensible sounds Psychiatric exam: Present: flat affect Skin exam: Present: normal color Course Vital Signs 06/21/23 06/21/23 06/21/23 09:13 09:28 09:39 Pulse Rate 117 H 117 H Respiratory 36 H 40 H Rate Blood Pressure 105/57 106/58 O2 Sat by Pulse 94 L 100 Oximetry Fraction of 35 Inspired Oxygen (FIO2) 06/21/23 06/21/23 06/21/23 09:40 10:32 10:59 Pulse Rate 116 H 107 H 103 H Respiratory 36 H 34 H 28 H Rate Blood Pressure 95/51 84/52 103/51 O2 Sat by Pulse 100 99 99 Oximetry Fraction of Inspired Oxygen (FIO2) EKG Findings - EKG Results: EKG: interpreted by ERMD (Atrial tachycardia with rate of 118. For screening AV block. Right axis. Motion artifact is present.), normal QRS, normal ST/T Medical Decision Making - Medical Decision Making Was pt. sent in by a medical professional or institution (, PA, [employer]DI[employer], urgent care, hospital, or retirement...) When possible be specific @ -No Did you speak to anyone other than the patient for history (EMS, parent, family, police, friend...)? What history was obtained from this source @ -EMS provides majority of history is patient only provides minimal history Did you review nursing and triage notes (agree or disagree)? Why? @ -I reviewed and agree with nursing and triage notes Were old charts reviewed (outside hosp., previous admission, EMS record, old EKG, old radiological studies, urgent care reports/EKG's, retirement records)? Report findings @ -Previous labs and x-rays reviewed Differential Diagnosis (chest pain, altered mental status, abdominal pain women, abdominal pain men, vaginal bleeding, weakness, fever, dyspnea, syncope, headache, dizziness, GI bleed, back pain, seizure, CVA, palpatations, mental health, musculoskeletal)? @ -Differential Weakness: Hypoglycemia, shock, sepsis, hyponatremia, anemia, infection, GA, ETOH, adverse medicine reaction, overdose, stroke, this is not meant to be an all-inclusive list. EKG interpreted by me (3pts min.). @ -As above X-rays interpreted by me (1pt min.). @ -Chest x-ray shows no acute process CT interpreted by me (1pt min.). @ -None done U/S interpreted by me (1pt. min.). @ -None done What testing was considered but not performed or refused? (CT, X-rays, U/S, labs)? Why? @ -None What meds were considered but not given or refused? Why? @ -None Did you discuss the management of the patient with other professionals (professionals i.e. , PA, INDI[employer], lab, RT, psych nurse, psychotherapist social worker, webmaster, teacher, credit administration officer, case filler)? Give summary @ -Case discussed with Dr. Valenzuela, who will admit his patient. Dr. Montoya also notified who will consult for critical care Was smoking cessation discussed for >3mins.? @ -No Was critical care preformed (if so, how long)? @ -33 minutes critical care time Were there social determinants of health that impacted care today? How? (Homelessness, low income, unemployed, alcoholism, drug addiction, tr ansportation, low edu. Level, literacy, decrease access to med. care, skilled nursing, rehab)? @ -No Was there de-escalation of care discussed even if they declined (Discuss DNR or withdrawal of care, Hospice)? DNR status @ -No What co-morbidities impacted this encounter? (DM, HTN, Smoking, COPD, CAD, Cancer, CVA, ARF, Chemo, Hep., AIDS, mental health diagnosis, sleep apnea, morbid obesity)? @ -None Was patient admitted / discharged? Hospital course, mention meds given and route, prescriptions, significant lab abnormalities, going to OR and other pertinent info. @ -Patient reevaluated and more alert. Blood pressures in the mid to upper 90s. Patient has received 2 L of fluid. Insulin drip started. Patient will be admitted to ICU with diabetic ketoacidosis protocol Undiagnosed new problem with uncertain prognosis? @ -No Drug Therapy requiring intensive monitoring for toxicity (Heparin, Nitro, Insulin, Cardizem)? @ -No Were any procedures done? @ -No Diagnosis/symptom? @ -Diabetic ketoacidosis Acute, or Chronic, or Acute on Chronic? @ -Acute Uncomplicated (without systemic symptoms) or Complicated (systemic symptoms)? @ -Complicated with electrolyte abnormalities Side effects of treatment? @ -No Exacerbation, Progression, or Severe Exacerbation? @ -No Poses a threat to life or bodily function? How? (Chest pain, USA, GA, pneumonia, PE, COPD, DKA, ARF, appy, cholecystitis, CVA, Diverticulitis, Homicidal, Suicidal, threat to staff... and all critical care pts) @ -Severe diabetic ketoacidosis does pose a threat to life - Lab Data Result diagrams: 06/21/23 09:34 06/21/23 09:34 Lab Results 06/21/23 06/21/23 06/21/23 Range/Units 09:29 09:34 09:34 WBC 21.3 H (3.8-10.6) k/uL RBC 4.34 (4.30-5.90) m/uL Hgb 12.3 L (13.0-17.5) gm/dL Hct 44.4 (39.0-53.0) % MCV 102.4 H D (80.0-100.0) fL MCH 28.5 (25.0-35.0) pg MCHC 27.8 L (31.0-37.0) g/dL RDW 15.9 H (11.5-15.5) % Plt Count 558 H (150-450) k/uL MPV 9.2 Neutrophils % 80 % Lymphocytes % 17 % Monocytes % 2 % Eosinophils % 0 % Basophils % 1 % Neutrophils # 16.9 H (1.3-7.7) k/uL Lymphocytes # 3.6 (1.0-4.8) k/uL Monocytes # 0.4 (0-1.0) k/uL Eosinophils # 0.1 (0-0.7) k/uL Basophils # 0.1 (0-0.2) k/uL Hypochromasia Marked Macrocytosis Slight VBG pH (7.31-7.41) VBG pCO2 (37-51) mmHg VBG HCO3 (24-28) mmol/L Sodium (137-145) mmol/L Potassium (3.5-5.1) mmol/L Chloride (98-107) mmol/L Carbon Dioxide (22-30) mmol/L Anion Gap mmol/L BUN (9-20) mg/dL Creatinine (0.66-1.25) mg/dL Est GFR (CKD-EPI)AfAm (>60 ml/min/1.73 sqM) Est GFR (CKD-EPI)NonAf (>60 ml/min/1.73 sqM) Glucose (74-99) mg/dL POC Glucose (mg/dL) >600 H (70-110) mg/dL POC Glu Ux Engineer ID Eran Harrison Plasma Lactic Acid Len (0.7-2.0) mmol/L Calcium (8.4-10.2) mg/dL Magnesium (1.6-2.3) mg/dL Total Bilirubin (0.2-1.3) mg/dL AST (17-59) U/L ALT (4-49) U/L Alkaline Phosphatase (38-126) U/L Total Protein (6.3-8.2) g/dL Albumin (3.5-5.0) g/dL Acetone, Qual Positive (Negative) 06/21/23 06/21/23 06/21/23 Range/Units 09:34 09:34 09:34 WBC (3.8-10.6) k/uL RBC (4.30-5.90) m/uL Hgb (13.0-17.5) gm/dL Hct (39.0-53.0) % MCV (80.0-100.0) fL MCH (25.0-35.0) pg MCHC (31.0-37.0) g/dL RDW (11.5-15.5) % Plt Count (150-450) k/uL MPV Neutrophils % % Lymphocytes % % Monocytes % % Eosinophils % % Basophils % % Neutrophils # (1.3-7.7) k/uL Lymphocytes # (1.0-4.8) k/uL Monocytes # (0-1.0) k/uL Eosinophils # (0-0.7) k/uL Basophils # (0-0.2) k/uL Hypochromasia Macrocytosis VBG pH 6.88 L* (7.31-7.41) VBG pCO2 16 L* (37-51) mmHg VBG HCO3 3 L* (24-28) mmol/L Sodium 143 (137-145) mmol/L Potassium 6.5 H* (3.5-5.1) mmol/L Chloride 102 (98-107) mmol/L Carbon Dioxide <5 L* (22-30) mmol/L Anion Gap mmol/L BUN 27 H (9-20) mg/dL Creatinine 1.90 H (0.66-1.25) mg/dL Est GFR (CKD-EPI)AfAm 55 (>60 ml/min/1.73 sqM) Est GFR (CKD-EPI)NonAf 48 (>60 ml/min/1.73 sqM) Glucose 867 H* (74-99) mg/dL POC Glucose (mg/dL) (70-110) mg/dL POC Glu Ux Engineer ID Plasma Lactic Acid Len 3.8 H* (0.7-2.0) mmol/L Calcium 9.6 (8.4-10.2) mg/dL Magnesium 2.6 H (1.6-2.3) mg/dL Total Bilirubin 0.4 (0.2-1.3) mg/dL AST 20 (17-59) U/L ALT 30 (4-49) U/L Alkaline Phosphatase 140 H (38-126) U/L Total Protein 6.9 (6.3-8.2) g/dL Albumin 4.7 (3.5-5.0) g/dL Acetone, Qual (Negative) 06/21/23 Range/Units 10:34 WBC (3.8-10.6) k/uL RBC (4.30-5.90) m/uL Hgb (13.0-17.5) gm/dL Hct (39.0-53.0) % MCV (80.0-100.0) fL MCH (25.0-35.0) pg MCHC (31.0-37.0) g/dL RDW (11.5-15.5) % Plt Count (150-450) k/uL MPV Neutrophils % % Lymphocytes % % Monocytes % % Eosinophils % % Basophils % % Neutrophils # (1.3-7.7) k/uL Lymphocytes # (1.0-4.8) k/uL Monocytes # (0-1.0) k/uL Eosinophils # (0-0.7) k/uL Basophils # (0-0.2) k/uL Hypochromasia Macrocytosis VBG pH (7.31-7.41) VBG pCO2 (37-51) mmHg VBG HCO3 (24-28) mmol/L Sodium (137-145) mmol/L Potassium (3.5-5.1) mmol/L Chloride (98-107) mmol/L Carbon Dioxide (22-30) mmol/L Anion Gap mmol/L BUN (9-20) mg/dL Creatinine (0.66-1.25) mg/dL Est GFR (CKD-EPI)AfAm (>60 ml/min/1.73 sqM) Est GFR (CKD-EPI)NonAf (>60 ml/min/1.73 sqM) Glucose (74-99) mg/dL POC Glucose (mg/dL) >600 H (70-110) mg/dL POC Glu Ux Engineer ID Eran Harrison Plasma Lactic Acid Len (0.7-2.0) mmol/L Calcium (8.4-10.2) mg/dL Magnesium (1.6-2.3) mg/dL Total Bilirubin (0.2-1.3) mg/dL AST (17-59) U/L ALT (4-49) U/L Alkaline Phosphatase (38-126) U/L Total Protein (6.3-8.2) g/dL Albumin (3.5-5.0) g/dL Acetone, Qual (Negative) Critical Care Time Critical Care Time: Yes Total Critical Care Time: 33 Disposition Clinical Impression: DKA (diabetic ketoacidoses) Disposition: ADMITTED IP TO THIS [facility] Condition: Critical Is patient prescribed a controlled substance at d/c from ED?: No Referrals: Brown Valenzuela MD [Primary Care Provider] - 1-2 days Time of Disposition: 11:12
[2023-06-21 09:35] LABS: Glucose,Whole Blood >600 mg/dL (70-110)
[2023-06-21] MEDS: SODIUM CHLORIDE 0.9% 1,000 ML IV SCH ×2 (09:38→13:42)
[2023-06-21 10:35] LABS: Glucose,Whole Blood >600 mg/dL (70-110)
[2023-06-21 10:36] LABS: Basophils # (A) 0.1 k/uL (0-0.2); Basophils % (A) 1 %; Eosinophils # (A) 0.1 k/uL (0-0.7); Eosinophils % (A) 0 %; HCT 44.4 % (39.0-53.0); HGB 12.3 gm/dL (13.0-17.5); Hypochromasia Marked; Lymphocytes # (A) 3.6 k/uL (1.0-4.8); Lymphocytes % (A) 17 %; MCH 28.5 pg (25.0-35.0); MCHC 27.8 g/dL (31.0-37.0); Macrocytosis Slight; Mean Platelet Volume 9.2; Monocytes # (A) 0.4 k/uL (0-1.0); Monocytes % (A) 2 %; Neutrophils # (A) 16.9 k/uL (1.3-7.7); Neutrophils % (A) 80 %; Platelet Count 558 k/uL (150-450); RBC 4.34 m/uL (4.30-5.90); RDW 15.9 % (11.5-15.5); WBC 21.3 k/uL (3.8-10.6)
[2023-06-21 10:37] LABS: MCV 102.4 fL (80.0-100.0)
[2023-06-21] MEDS: INSULIN REGULAR 100 UNIT in SODIUM CHLORIDE 0.9% 100 ML IV SCH (10:38)
[2023-06-21 10:45] LABS: VBG PH 6.88 (7.31-7.41)
[2023-06-21 10:48] LABS: ALT 30 U/L (4-49); AST 20 U/L (17-59); African American GFR (CKD) 55 (>60 ml/min/1.73 sqM); Albumin 4.7 g/dL (3.5-5.0); Alkaline Phosphatase 140 U/L (38-126); Blood Urea Nitrogen 27 mg/dL (9-20); Calcium 9.6 mg/dL (8.4-10.2); Chloride 102 mmol/L (98-107); Magnesium 2.6 mg/dL (1.6-2.3); Non-African American GFR(CKD) 48 (>60 ml/min/1.73 sqM); Sodium 143 mmol/L (137-145); Total Bilirubin 0.4 mg/dL (0.2-1.3); Total Protein 6.9 g/dL (6.3-8.2)
--- NOTE | 2023-06-21 10:51 | XR ---
EXAMINATION TYPE: XR chest 1V portable DATE OF EXAM: 06/21/2023 COMPARISON: 04/29/2023 INDICATION: Weakness TECHNIQUE: Single frontal view of the chest is obtained. FINDINGS: The heart size is normal. The pulmonary vasculature is normal. The lungs are clear. IMPRESSION: 1. No acute pulmonary process.
[2023-06-21 10:58] LABS: Potassium 6.5 mmol/L (3.5-5.1)
[2023-06-21 10:59] LABS: Carbon Dioxide <5 mmol/L (22-30)
[2023-06-21 11:00] LABS: Glucose 867 mg/dL (74-99)
[2023-06-21] MEDS ORDERED: NALOXONE 0.4 MG/ML 1 ML VIAL IV PRN (11:14)
[2023-06-21 11:36] LABS: Glucose,Whole Blood >600 mg/dL (70-110)
[2023-06-21] MEDS: PANTOPRAZOLE 40 MG/10 ML VIAL IV SCH (12:35)
[2023-06-21 12:36] LABS: Glucose,Whole Blood >600 mg/dL (70-110)
[2023-06-21 13:18] LABS: African American GFR (CKD) 55 (>60 ml/min/1.73 sqM); Blood Urea Nitrogen 28 mg/dL (9-20); Chloride 108 mmol/L (98-107); Non-African American GFR(CKD) 47 (>60 ml/min/1.73 sqM); Potassium 5.9 mmol/L (3.5-5.1); Sodium 148 mmol/L (137-145)
[2023-06-21 13:46] LABS: Carbon Dioxide <5 mmol/L (22-30)
[2023-06-21 13:46] LABS: Glucose,Whole Blood 532 mg/dL (70-110)
[2023-06-21 14:32] LABS: Glucose,Whole Blood 534 mg/dL (70-110)
[2023-06-21 15:00] LABS: Glucose 772 mg/dL (74-99)
--- NOTE | 2023-06-21 15:00 | P.CNPUL ---
History of Present Illness Consult date: 06/21/23 Requesting physician: Brown Valenzuela Reason for consult: other (Critical care management) Chief complaint: Altered mental status, vomiting History of present illness: This is a 27-year-old male patient with a known history of type 1 diabetes mellitus that has been poorly controlled and poorly compliant with his outpatient medications. He was brought into the emergency room again today with vomiting and altered mental status. Count 21.1. Hemoglobin 12.3. Sodium 143. Potassium 6.5. Bicarb less than 5. BUN 27. Creatinine 1.90. Glucose 867. Acetone positive. He is seen in consultation in the emergency department. He is arousable. He drifts off easily. He is maintaining good O2 saturations in the 90s on room air. He was quite hypothermic and a warming blanket is in plac e. Initial core temperature of 90.3. Currently 94.3. He is tachycardic. Blood pressure stable. He has receiving D5 and half-normal saline at 20 of KCl at 150 MLS per hour. Insulin drip at 6.32 units/h. Review of Systems REVIEW OF SYSTEMS: CONSTITUTIONAL: Positive for altered mental status. EYES: Denies change in vision. EARS, NOSE, MOUTH, THROAT: Denies headaches, denies sore throat. CARDIOVASCULAR: Denies chest pain, palpitations or syncopal episodes. RESPIRATORY: Denies shortness of breath, cough, congestion or hemoptysis. GASTROINTESTINAL: As it of for vomiting and abdominal pain GENITOURINARY: Denies hematuria, denies infections. MUSKULOSKELETAL: Denies pain, denies swelling. INTEGUMENTARY: Denies rash, denies eczema. NEUROLOGICAL: Denies recent memory loss, no recent seizure activity. PSYCHIATRIC: Denies anxiety, denies depression. HEMATOLOGIC/LYMPHATIC: Denies anemia, denies enlarged lymph nodes. Past Medical History Past Medical History: Asthma, Diabetes Mellitus, Neurologic Disorder, Skin Disorder Additional Past Medical History / Comment(s): IDDM type I, neuropathy bilateral feet, DKA, eczema. History of Any Multi-Drug Resistant Organisms: None Reported Past Surgical History: Adenoidectomy Additional Past Surgical History / Comment(s): 2003 Recent EGD- gastritis Past Anesthesia/Blood Transfusion Reactions: No Reported Reaction Past Psychological History: Anxiety, Depression Smoking Status: Former smoker Past Alcohol Use History: None Reported Past Drug Use History: Marijuana - Past Family History Mother Family Medical History: CVA/TIA Additional Family Medical History / Comment(s): TIA Father Family Medical History: Hyperlipidemia, Hypertension Additional Family Medical History / Comment(s): . Medications and Allergies Home Medications Medication Instructions Recorded Confirmed Type Insulin Detemir (Levemir) [Levemir] 30 unit SQ HS 03/07/23 06/21/23 History Ergocalciferol [Vitamin D2 (1250 1,250 mcg PO Q30D 04/29/23 06/21/23 History Mcg = 36713 Iu)] Famotidine [Pepcid] 20 mg PO BID 04/29/23 06/21/23 History Gabapentin 600 mg PO TID 04/29/23 06/21/23 History Insulin Lispro [Insulin Lispro 7 units SQ AC-TID 04/29/23 06/21/23 History Kwikpen U-100] Losartan Potassium 50 mg PO DAILY 04/29/23 06/21/23 History Mirtazapine 7.5 mg PO HS 04/29/23 06/21/23 History Allergies Allergy/AdvReac Type Severity Reaction Status Date / Time No Known Allergies Allergy Verified 06/21/23 11:38 Physical Exam Vitals: Vital Signs Temp Pulse Resp BP Pulse Ox FiO2 06/21/23 14:22 94.3 F L 118 H 22 102/71 99 06/21/23 13:45 92.8 F L 113 H 25 H 102/66 100 06/21/23 13:00 91.8 F L 116 H 29 H 91/58 100 06/21/23 12:36 90.3 F L 109 H 30 H 76/49 99 06/21/23 11:41 90.3 F L 103 H 32 H 100 06/21/23 11:35 103 H 30 H 101/53 100 06/21/23 10:59 103 H 28 H 103/51 99 06/21/23 10:32 107 H 34 H 84/52 99 06/21/23 09:40 116 H 36 H 95/51 100 06/21/23 09:39 35 06/21/23 09:28 117 H 40 H 106/58 100 06/21/23 09:13 117 H 36 H 105/57 94 L Intake and Output 06/20/23 06/21/23 06/21/23 22:59 06:59 14:59 Other: Weight 62.596 kg GENERAL EXAM: Arousable, thin 27-year-old male, on room air, fairly comfortable in no apparent distress. HEAD: Normocephalic. EYES: Normal reaction of pupils, equal size. NOSE: Clear with pink turbinates. THROAT: No erythema or exudates. NECK: No masses, no JVD. CHEST: No chest wall deformity. LUNGS: Equal air entry with no crackles, wheeze, rhonchi or dullness. CVS: S1 and S2 normal with no audible murmur, regular rhythm. ABDOMEN: No hepatosplenomegaly, normal bowel sounds, no guarding or rigidity. SPINE: No scoliosis or deformity SKIN: No rashes CENTRAL NERVOUS SYSTEM: No focal deficits, tone is normal in all 4 extremities. EXTREMITIES: There is no peripheral edema. No clubbing, no cyanosis. Peripheral pulses are intact. Results - Laboratory Findings CBC and BMP: 06/21/23 09:34 06/21/23 12:19 Abnormal lab findings: Abnormal Labs 06/21/23 06/21/23 06/21/23 09:29 09:34 09:34 WBC 21.3 H Hgb 12.3 L MCV 102.4 H D MCHC 27.8 L RDW 15.9 H Plt Count 558 H Neutrophils # 16.9 H VBG pH VBG pCO2 VBG HCO3 Sodium Potassium 6.5 H* Chloride Carbon Dioxide <5 L* BUN 27 H Creatinine 1.90 H Glucose 867 H* POC Glucose (mg/dL) >600 H Plasma Lactic Acid Len Phosphorus Magnesium 2.6 H Alkaline Phosphatase 140 H 06/21/23 06/21/23 06/21/23 09:34 09:34 10:34 WBC Hgb MCV MCHC RDW Plt Count Neutrophils # VBG pH 6.88 L* VBG pCO2 16 L* VBG HCO3 3 L* Sodium Potassium Chloride Carbon Dioxide BUN Creatinine Glucose POC Glucose (mg/dL) >600 H Plasma Lactic Acid Len 3.8 H* Phosphorus Magnesium Alkaline Phosphatase 06/21/23 06/21/23 06/21/23 11:35 12:19 12:19 WBC Hgb MCV MCHC RDW Plt Count Neutrophils # VBG pH VBG pCO2 VBG HCO3 Sodium 148 H Potassium 5.9 H Chloride 108 H Carbon Dioxide <5 L* BUN 28 H Creatinine 1.92 H Glucose 772 H* POC Glucose (mg/dL) >600 H Plasma Lactic Acid Len Phosphorus 11.8 H* Magnesium Alkaline Phosphatase 06/21/23 06/21/23 06/21/23 12:34 13:08 13:44 WBC Hgb MCV MCHC RDW Plt Count Neutrophils # VBG pH VBG pCO2 VBG HCO3 Sodium Potassium Chloride Carbon Dioxide BUN Creatinine Glucose POC Glucose (mg/dL) >600 H 532 H Plasma Lactic Acid Len 3.5 H* Phosphorus Magnesium Alkaline Phosphatase 06/21/23 14:30 WBC Hgb MCV MCHC RDW Plt Count Neutrophils # VBG pH VBG pCO2 VBG HCO3 Sodium Potassium Chloride Carbon Dioxide BUN Creatinine Glucose POC Glucose (mg/dL) 534 H Plasma Lactic Acid Len Phosphorus Magnesium Alkaline Phosphatase - Diagnostic Findings Chest x-ray: image reviewed (No acute pulmonary process) Assessment and Plan Assessment: Acute diabetic ketoacidosis, likely secondary to medication noncompliance. Patient has had numerous episodes of DKA, recently discharged on 06/18/2023 for the same, he is being treated based on the DKA protocol and is currently on insulin drip, resuscitated with IV fluids Severe anion gap metabolic acidosis, secondary to above and lactic acidosis Tachycardia, sinus Severe dehydration Acute kidney injury, prerenal, secondary to above Severe hyperkalemia Hypothermia Type 1 diabetes mellitus, with poor medication compliance. Acute leukocytosis, likely reactive to DKA Diabetic neuropathy History of major depression Chronic marijuana use Chronic ongoing nicotine dependence Plan: The patient was seen and evaluated Chest x-ray, labs and medications reviewed Continue with the DKA protocol Continue with warming blanket Titrate the insulin drip per glucose readings Admit to the intensive care unit We will continue to follow and make further recommendations based on his clinical status I have personally seen and examined the patient, performed the documentation and the assessment and plan as written. Number of minutes spent on the visit: 20.
[2023-06-21 15:42] LABS: Glucose,Whole Blood 376 mg/dL (70-110)
[2023-06-21 16:43] LABS: Glucose,Whole Blood 244 mg/dL (70-110)
[2023-06-21] MEDS: D5-0.45% NACL WITH KCL 20MEQ/L 1,000 ML IV SCH ×3 (16:48→17:44)
[2023-06-21 17:27] LABS: African American GFR (CKD) >90 (>60 ml/min/1.73 sqM); Anion Gap 27 mmol/L; Blood Urea Nitrogen 27 mg/dL (9-20); Chloride 117 mmol/L (98-107); Glucose 247 mg/dL (74-99); Non-African American GFR(CKD) 84 (>60 ml/min/1.73 sqM); Phosphorus 4.2 mg/dL (2.5-4.5); Potassium 4.9 mmol/L (3.5-5.1); Sodium 151 mmol/L (137-145)
[2023-06-21 17:44] LABS: Glucose,Whole Blood 157 mg/dL (70-110)
[2023-06-21 18:02] LABS: Carbon Dioxide 7 mmol/L (22-30)
[2023-06-21 18:39] LABS: Glucose,Whole Blood 130 mg/dL (70-110)
[2023-06-21 19:37] LABS: Glucose,Whole Blood 121 mg/dL (70-110)
[2023-06-21 20:39] LABS: Glucose,Whole Blood 127 mg/dL (70-110)
[2023-06-21 22:00] LABS: Glucose,Whole Blood 161 mg/dL (70-110)
[2023-06-21 22:05] LABS: African American GFR (CKD) >90 (>60 ml/min/1.73 sqM); Anion Gap 17 mmol/L; Blood Urea Nitrogen 25 mg/dL (9-20); Carbon Dioxide 12 mmol/L (22-30); Chloride 117 mmol/L (98-107); Glucose 149 mg/dL (74-99); Non-African American GFR(CKD) >90 (>60 ml/min/1.73 sqM); Potassium 4.8 mmol/L (3.5-5.1); Sodium 146 mmol/L (137-145)
[2023-06-21 22:25] VITALS: RESP 18
[2023-06-21 22:51] LABS: Glucose,Whole Blood 157 mg/dL (70-110)
[2023-06-21 23:41] LABS: Glucose,Whole Blood 200 mg/dL (70-110)
[2023-06-22] MEDS: D5-0.45% NACL WITH KCL 20MEQ/L 1,000 ML IV SCH ×2 (00:10→06:35)
[2023-06-22 00:39] LABS: African American GFR (CKD) >90 (>60 ml/min/1.73 sqM); Anion Gap 15 mmol/L; Blood Urea Nitrogen 23 mg/dL (9-20); Carbon Dioxide 14 mmol/L (22-30); Chloride 113 mmol/L (98-107); Glucose 196 mg/dL (74-99); Non-African American GFR(CKD) >90 (>60 ml/min/1.73 sqM); Sodium 142 mmol/L (137-145)
[2023-06-22 00:48] LABS: Glucose,Whole Blood 228 mg/dL (70-110)
[2023-06-22 01:51] LABS: Glucose,Whole Blood 235 mg/dL (70-110)
[2023-06-22] MEDS: INSULIN REGULAR 100 UNIT in SODIUM CHLORIDE 0.9% 100 ML IV SCH ×2 (02:41→02:45)
[2023-06-22 02:47] LABS: Glucose,Whole Blood 241 mg/dL (70-110)
[2023-06-22 03:31] LABS: ALT 23 U/L (4-49); AST 15 U/L (17-59); African American GFR (CKD) >90 (>60 ml/min/1.73 sqM); Albumin 3.2 g/dL (3.5-5.0); Alkaline Phosphatase 96 U/L (38-126); Anion Gap 13 mmol/L; Blood Urea Nitrogen 22 mg/dL (9-20); Calcium 8.4 mg/dL (8.4-10.2); Carbon Dioxide 15 mmol/L (22-30); Chloride 111 mmol/L (98-107); Glucose 249 mg/dL (74-99); Magnesium 2.1 mg/dL (1.6-2.3); Non-African American GFR(CKD) >90 (>60 ml/min/1.73 sqM); Phosphorus 2.9 mg/dL (2.5-4.5); Potassium 4.6 mmol/L (3.5-5.1); Sodium 139 mmol/L (137-145); Total Bilirubin 0.3 mg/dL (0.2-1.3); Total Protein 5.6 g/dL (6.3-8.2)
[2023-06-22 03:32] LABS: African American GFR (CKD) >90 (>60 ml/min/1.73 sqM); Anion Gap 14 mmol/L; Blood Urea Nitrogen 22 mg/dL (9-20); Carbon Dioxide 14 mmol/L (22-30); Chloride 111 mmol/L (98-107); Glucose 249 mg/dL (74-99); Non-African American GFR(CKD) >90 (>60 ml/min/1.73 sqM); Phosphorus 2.9 mg/dL (2.5-4.5); Potassium 4.6 mmol/L (3.5-5.1); Sodium 139 mmol/L (137-145)
[2023-06-22 03:52] LABS: Glucose,Whole Blood 235 mg/dL (70-110)
[2023-06-22 04:48] LABS: Glucose,Whole Blood 267 mg/dL (70-110)
[2023-06-22 05:46] LABS: Glucose,Whole Blood 239 mg/dL (70-110)
[2023-06-22 06:39] LABS: Glucose,Whole Blood 192 mg/dL (70-110)
[2023-06-22 07:48] LABS: Glucose,Whole Blood 193 mg/dL (70-110)
[2023-06-22 08:53] LABS: Glucose,Whole Blood 178 mg/dL (70-110)
[2023-06-22] MEDS: PANTOPRAZOLE 40 MG/10 ML VIAL IV SCH (09:17)
[2023-06-22 09:30] LABS: ALT 21 U/L (4-49); AST 20 U/L (17-59); African American GFR (CKD) >90 (>60 ml/min/1.73 sqM); Alkaline Phosphatase 76 U/L (38-126); Anion Gap 8 mmol/L; Blood Urea Nitrogen 20 mg/dL (9-20); Calcium 8.3 mg/dL (8.4-10.2); Carbon Dioxide 17 mmol/L (22-30); Chloride 110 mmol/L (98-107); Glucose 176 mg/dL (74-99); Magnesium 1.9 mg/dL (1.6-2.3); Non-African American GFR(CKD) >90 (>60 ml/min/1.73 sqM); Sodium 135 mmol/L (137-145); Total Bilirubin 0.4 mg/dL (0.2-1.3); Total Protein 5.3 g/dL (6.3-8.2)
[2023-06-22 09:39] LABS: Potassium 4.2 mmol/L (3.5-5.1)
[2023-06-22 09:51] LABS: Anisocytosis Slight; Basophils # (A) 0.1 k/uL (0-0.2); Basophils % (A) 0 %; Eosinophils # (A) 0.2 k/uL (0-0.7); Eosinophils % (A) 1 %; HCT 31.4 % (39.0-53.0); HGB 10.4 gm/dL (13.0-17.5); Lymphocytes # (A) 1.9 k/uL (1.0-4.8); Lymphocytes % (A) 11 %; MCH 28.6 pg (25.0-35.0); MCHC 33.2 g/dL (31.0-37.0); Mean Platelet Volume 7.3; Monocytes # (A) 0.8 k/uL (0-1.0); Monocytes % (A) 4 %; Neutrophils # (A) 14.8 k/uL (1.3-7.7); Neutrophils % (A) 83 %; Platelet Count 290 k/uL (150-450); RBC 3.65 m/uL (4.30-5.90); RDW 16.8 % (11.5-15.5); WBC 17.9 k/uL (3.8-10.6)
[2023-06-22 10:13] LABS: Glucose,Whole Blood 155 mg/dL (70-110)
[2023-06-22 11:04] LABS: Glucose,Whole Blood 154 mg/dL (70-110)
[2023-06-22 12:06] LABS: Glucose,Whole Blood 148 mg/dL (70-110)
[2023-06-22 12:17] LABS: Potassium 3.9 mmol/L (3.5-5.1)
--- NOTE | 2023-06-22 12:51 | P.PN ---
Subjective Progress Note Date: 06/22/23 Principal diagnosis: Acute diabetic ketoacidosis This is a 27-year-old male patient with a known history of type 1 diabetes mellitus that has been poorly controlled and poorly compliant with his outpatient medications. He was brought into the emergency room again today with vomiting and altered mental status. Count 21.1. Hemoglobin 12.3. Sodium 143. Potassium 6.5. Bicarb less than 5. BUN 27. Creatinine 1.90. Glucose 867. Acetone positive. He is seen in consultation in the emergency department. He is arousable. He drifts off easily. He is maintaining good O2 saturations in the 90s on room air. He was quite hypothermic and a warming blanket is in place. Initial core temperature of 90.3. Currently 94.3. He is tachycardic. Blood pressure stable. He has receiving D5 and half-normal saline at 20 of KCl at 150 MLS per hour. Insulin drip at 6.32 units/h. Was reevaluated today on 06/22/2023, remains in the ER waiting for a bed to go up to the ICU. Patient remains on the DKA protocol, he is now on insulin drip at 1.89 units/h, he is also on D5 4 5 with 20 mEq of potassium at 150 mL/h. His anion gap is almost closed it is 13 at present, blood bicarb is 15 and blood sugar is 249 patient is on room air, O2 sats 97%, does not seem to be in any distress. Objective - Vital Signs Vital signs: Vital Signs Temp 97.9 F 06/22/23 07:50 Pulse 86 06/22/23 11:37 Resp 18 06/22/23 11:37 BP 115/86 06/22/23 11:37 Pulse Ox 97 06/22/23 11:37 FiO2 35 06/21/23 09:39 Intake & Output 06/21/23 06/22/23 06/22/23 18:59 06:59 18:59 Intake Total 51.524 14.239 10.718 Output Total 100 Balance 51.524 14.239 -89.282 Weight 62.596 kg Intake: Intake, IV Titration 51.524 14.239 10.718 Amount Insulin Regular 100 unit 51.524 14.239 10.718 In Sodium Chloride 0.9% 100 ml @ 0.1 UNITS/KG/HR 6.322 mls/hr IV .[id number] [facility] Rx#:[id number] Output: Urine 100 Uretheral (Hallman) 100 - Exam General: The patient is awake and alert, in no distress, and does not appear acutely ill. Skin: Skin is warm and dry and no rashes or lesions are noted. Eye: Pupils are equal, round and reactive to light, extra-ocular movements are intact; there is normal conjunctiva bilaterally. Ears, nose, mouth and throat: There are moist mucous membranes and no oral lesions. Neck: The neck is supple, there is no tenderness or JVD. Cardiovascular: There is a regular rate and rhythm. No murmur, rub or gallop is appreciated. Respiratory: Clear bilaterally no rhonchi no wheezes Gastrointestinal: Soft, non-distended, non-tender abdomen without masses or organomegaly noted. There is no rebound or guarding present. Bowel sounds are unremarkable. Back: There is no tenderness to palpation in the midline. There is no obvious deformity. Musculoskeletal: Normal ROM, no tenderness, There is no pedal edema. There is no calf tenderness or swelling. No cords were appreciated. Neurological: CN II-XII intact, Cranial nerves III through XII are intact. There are no obvious motor or sensory deficits. Coordination appears grossly intact. Speech is normal. Psychiatric: Cooperative, appropriate mood & affect, normal judgment. - Labs CBC & Chem 7: 06/22/23 08:27 06/22/23 11:50 Labs: Abnormal Lab Results - Last 24 Hours (Table) 06/21/23 06/21/23 06/21/23 Range/Units 12:19 12:19 13:08 WBC (3.8-10.6) k/uL RBC (4.30-5.90) m/uL Hgb (13.0-17.5) gm/dL Hct (39.0-53.0) % RDW (11.5-15.5) % Neutrophils # (1.3-7.7) k/uL Sodium 148 H (137-145) mmol/L Potassium 5.9 H (3.5-5.1) mmol/L Chloride 108 H (98-107) mmol/L Carbon Dioxide <5 L* (22-30) mmol/L BUN 28 H (9-20) mg/dL Creatinine 1.92 H (0.66-1.25) mg/dL Glucose 772 H* (74-99) mg/dL POC Glucose (mg/dL) (70-110) mg/dL Plasma Lactic Acid Len 3.5 H* (0.7-2.0) mmol/L Calcium (8.4-10.2) mg/dL Phosphorus 11.8 H* (2.5-4.5) mg/dL AST (17-59) U/L Total Protein (6.3-8.2) g/dL Albumin (3.5-5.0) g/dL 06/21/23 06/21/23 06/21/23 Range/Units 13:44 14:30 15:40 WBC (3.8-10.6) k/uL RBC (4.30-5.90) m/uL Hgb (13.0-17.5) gm/dL Hct (39.0-53.0) % RDW (11.5-15.5) % Neutrophils # (1.3-7.7) k/uL Sodium (137-145) mmol/L Potassium (3.5-5.1) mmol/L Chloride (98-107) mmol/L Carbon Dioxide (22-30) mmol/L BUN (9-20) mg/dL Creatinine (0.66-1.25) mg/dL Glucose (74-99) mg/dL POC Glucose (mg/dL) 532 H 534 H 376 H (70-110) mg/dL Plasma Lactic Acid Len (0.7-2.0) mmol/L Calcium (8.4-10.2) mg/dL Phosphorus (2.5-4.5) mg/dL AST (17-59) U/L Total Protein (6.3-8.2) g/dL Albumin (3.5-5.0) g/dL 06/21/23 06/21/23 06/21/23 Range/Units 16:42 16:47 17:43 WBC (3.8-10.6) k/uL RBC (4.30-5.90) m/uL Hgb (13.0-17.5) gm/dL Hct (39.0-53.0) % RDW (11.5-15.5) % Neutrophils # (1.3-7.7) k/uL Sodium 151 H (137-145) mmol/L Potassium (3.5-5.1) mmol/L Chloride 117 H (98-107) mmol/L Carbon Dioxide 7 L* (22-30) mmol/L BUN 27 H (9-20) mg/dL Creatinine (0.66-1.25) mg/dL Glucose 247 H (74-99) mg/dL POC Glucose (mg/dL) 244 H 157 H (70-110) mg/dL Plasma Lactic Acid Len (0.7-2.0) mmol/L Calcium (8.4-10.2) mg/dL Phosphorus (2.5-4.5) mg/dL AST (17-59) U/L Total Protein (6.3-8.2) g/dL Albumin (3.5-5.0) g/dL 06/21/23 06/21/23 06/21/23 Range/Units 18:37 19:33 20:32 WBC (3.8-10.6) k/uL RBC (4.30-5.90) m/uL Hgb (13.0-17.5) gm/dL Hct (39.0-53.0) % RDW (11.5-15.5) % Neutrophils # (1.3-7.7) k/uL Sodium (137-145) mmol/L Potassium (3.5-5.1) mmol/L Chloride (98-107) mmol/L Carbon Dioxide (22-30) mmol/L BUN (9-20) mg/dL Creatinine (0.66-1.25) mg/dL Glucose (74-99) mg/dL POC Glucose (mg/dL) 130 H 121 H 127 H (70-110) mg/dL Plasma Lactic Acid Len (0.7-2.0) mmol/L Calcium (8.4-10.2) mg/dL Phosphorus (2.5-4.5) mg/dL AST (17-59) U/L Total Protein (6.3-8.2) g/dL Albumin (3.5-5.0) g/dL 06/21/23 06/21/23 06/21/23 Range/Units 21:28 21:57 22:48 WBC (3.8-10.6) k/uL RBC (4.30-5.90) m/uL Hgb (13.0-17.5) gm/dL Hct (39.0-53.0) % RDW (11.5-15.5) % Neutrophils # (1.3-7.7) k/uL Sodium 146 H (137-145) mmol/L Potassium (3.5-5.1) mmol/L Chloride 117 H (98-107) mmol/L Carbon Dioxide 12 L (22-30) mmol/L BUN 25 H (9-20) mg/dL Creatinine (0.66-1.25) mg/dL Glucose 149 H (74-99) mg/dL POC Glucose (mg/dL) 161 H 157 H (70-110) mg/dL Plasma Lactic Acid Len (0.7-2.0) mmol/L Calcium (8.4-10.2) mg/dL Phosphorus (2.5-4.5) mg/dL AST (17-59) U/L Total Protein (6.3-8.2) g/dL Albumin (3.5-5.0) g/dL 06/21/23 06/21/23 06/22/23 Range/Units 23:38 23:58 00:45 WBC (3.8-10.6) k/uL RBC (4.30-5.90) m/uL Hgb (13.0-17.5) gm/dL Hct (39.0-53.0) % RDW (11.5-15.5) % Neutrophils # (1.3-7.7) k/uL Sodium (137-145) mmol/L Potassium (3.5-5.1) mmol/L Chloride 113 H (98-107) mmol/L Carbon Dioxide 14 L (22-30) mmol/L BUN 23 H (9-20) mg/dL Creatinine (0.66-1.25) mg/dL Glucose 196 H (74-99) mg/dL POC Glucose (mg/dL) 200 H 228 H (70-110) mg/dL Plasma Lactic Acid Len (0.7-2.0) mmol/L Calcium (8.4-10.2) mg/dL Phosphorus (2.5-4.5) mg/dL AST (17-59) U/L Total Protein (6.3-8.2) g/dL Albumin (3.5-5.0) g/dL 06/22/23 06/22/23 06/22/23 Range/Units 01:50 02:41 03:07 WBC (3.8-10.6) k/uL RBC (4.30-5.90) m/uL Hgb (13.0-17.5) gm/dL Hct (39.0-53.0) % RDW (11.5-15.5) % Neutrophils # (1.3-7.7) k/uL Sodium (137-145) mmol/L Potassium (3.5-5.1) mmol/L Chloride 111 H (98-107) mmol/L Carbon Dioxide 14 L (22-30) mmol/L BUN 22 H (9-20) mg/dL Creatinine (0.66-1.25) mg/dL Glucose 249 H (74-99) mg/dL POC Glucose (mg/dL) 235 H 241 H (70-110) mg/dL Plasma Lactic Acid Len (0.7-2.0) mmol/L Calcium (8.4-10.2) mg/dL Phosphorus (2.5-4.5) mg/dL AST (17-59) U/L Total Protein (6.3-8.2) g/dL Albumin (3.5-5.0) g/dL 06/22/23 06/22/23 06/22/23 Range/Units 03:07 03:50 04:44 WBC (3.8-10.6) k/uL RBC (4.30-5.90) m/uL Hgb (13.0-17.5) gm/dL Hct (39.0-53.0) % RDW (11.5-15.5) % Neutrophils # (1.3-7.7) k/uL Sodium (137-145) mmol/L Potassium (3.5-5.1) mmol/L Chloride 111 H (98-107) mmol/L Carbon Dioxide 15 L (22-30) mmol/L BUN 22 H (9-20) mg/dL Creatinine (0.66-1.25) mg/dL Glucose 249 H (74-99) mg/dL POC Glucose (mg/dL) 235 H 267 H (70-110) mg/dL Plasma Lactic Acid Len (0.7-2.0) mmol/L Calcium (8.4-10.2) mg/dL Phosphorus (2.5-4.5) mg/dL AST 15 L (17-59) U/L Total Protein 5.6 L (6.3-8.2) g/dL Albumin 3.2 L (3.5-5.0) g/dL 06/22/23 06/22/23 06/22/23 Range/Units 05:45 06:35 07:46 WBC (3.8-10.6) k/uL RBC (4.30-5.90) m/uL Hgb (13.0-17.5) gm/dL Hct (39.0-53.0) % RDW (11.5-15.5) % Neutrophils # (1.3-7.7) k/uL Sodium (137-145) mmol/L Potassium (3.5-5.1) mmol/L Chloride (98-107) mmol/L Carbon Dioxide (22-30) mmol/L BUN (9-20) mg/dL Creatinine (0.66-1.25) mg/dL Glucose (74-99) mg/dL POC Glucose (mg/dL) 239 H 192 H 193 H (70-110) mg/dL Plasma Lactic Acid Len (0.7-2.0) mmol/L Calcium (8.4-10.2) mg/dL Phosphorus (2.5-4.5) mg/dL AST (17-59) U/L Total Protein (6.3-8.2) g/dL Albumin (3.5-5.0) g/dL 06/22/23 06/22/23 06/22/23 Range/Units 08:27 08:27 08:51 WBC 17.9 H (3.8-10.6) k/uL RBC 3.65 L (4.30-5.90) m/uL Hgb 10.4 L (13.0-17.5) gm/dL Hct 31.4 L (39.0-53.0) % RDW 16.8 H (11.5-15.5) % Neutrophils # 14.8 H (1.3-7.7) k/uL Sodium 135 L (137-145) mmol/L Potassium (3.5-5.1) mmol/L Chloride 110 H (98-107) mmol/L Carbon Dioxide 17 L (22-30) mmol/L BUN (9-20) mg/dL Creatinine 0.58 L (0.66-1.25) mg/dL Glucose 176 H (74-99) mg/dL POC Glucose (mg/dL) 178 H (70-110) mg/dL Plasma Lactic Acid Len (0.7-2.0) mmol/L Calcium 8.3 L (8.4-10.2) mg/dL Phosphorus (2.5-4.5) mg/dL AST (17-59) U/L Total Protein 5.3 L (6.3-8.2) g/dL Albumin 3.0 L (3.5-5.0) g/dL 06/22/23 06/22/23 06/22/23 Range/Units 10:12 11:02 11:50 WBC (3.8-10.6) k/uL RBC (4.30-5.90) m/uL Hgb (13.0-17.5) gm/dL Hct (39.0-53.0) % RDW (11.5-15.5) % Neutrophils # (1.3-7.7) k/uL Sodium 134 L (137-145) mmol/L Potassium (3.5-5.1) mmol/L Chloride 108 H (98-107) mmol/L Carbon Dioxide 21 L (22-30) mmol/L BUN (9-20) mg/dL Creatinine (0.66-1.25) mg/dL Glucose (74-99) mg/dL POC Glucose (mg/dL) 155 H 154 H (70-110) mg/dL Plasma Lactic Acid Len (0.7-2.0) mmol/L Calcium (8.4-10.2) mg/dL Phosphorus (2.5-4.5) mg/dL AST (17-59) U/L Total Protein (6.3-8.2) g/dL Albumin (3.5-5.0) g/dL 06/22/23 Range/Units 12:05 WBC (3.8-10.6) k/uL RBC (4.30-5.90) m/uL Hgb (13.0-17.5) gm/dL Hct (39.0-53.0) % RDW (11.5-15.5) % Neutrophils # (1.3-7.7) k/uL Sodium (137-145) mmol/L Potassium (3.5-5.1) mmol/L Chloride (98-107) mmol/L Carbon Dioxide (22-30) mmol/L BUN (9-20) mg/dL Creatinine (0.66-1.25) mg/dL Glucose (74-99) mg/dL POC Glucose (mg/dL) 148 H (70-110) mg/dL Plasma Lactic Acid Len (0.7-2.0) mmol/L Calcium (8.4-10.2) mg/dL Phosphorus (2.5-4.5) mg/dL AST (17-59) U/L Total Protein (6.3-8.2) g/dL Albumin (3.5-5.0) g/dL Assessment and Plan Assessment: Impression: Acute diabetic ketoacidosis, likely secondary to medication noncompliance. Anion gap metabolic acidosis secondary to above Tachycardia, sinus Severe dehydration Acute kidney injury, prerenal, secondary to above Type 1 diabetes mellitus, with poor medication compliance. Diabetic neuropathy History of major depression Chronic marijuana use Chronic ongoing nicotine dependence Plan: The patient was seen and evaluated Continue with the DKA protocol Later this p.m., patient could be transition to his usual dose of Lantus insulin and NovoLog insulin and if that happens may not need to be admitted to the ICU at that point. Titrate the insulin drip per protocol for We will continue to follow and make further recommendations based on his clinical status Time with Patient: Less than 30
[2023-06-22 13:21] LABS: Glucose,Whole Blood 127 mg/dL (70-110)
[2023-06-22 14:43] VITALS: BP 143/95; PULSE 74; TEMP 97.5
--- NOTE | 2023-06-22 17:19 | DS ---
DISCHARGE SUMMARY HISTORY OF PRESENT ILLNESS AND PHYSICAL EXAMINATION: Details of this man's history and physical can be found in the initial workup. LABORATORY STUDIES: While he is in the hospital, he had laboratory studies, details of which can be found in the laboratory section of his chart. COURSE IN THE HOSPITAL: After admission, he was placed at bedrest with IV fluids and DKA protocol. Blood sugars came down and his gap closed, he is doing well, felt he could be discharged on . FINAL DIAGNOSIS: Diabetic ketoacidosis. OPERATIONS: None. CONSULTATIONS: None, he is improved. MMODL / ALDEN: [id number] /
--- NOTE | 2023-06-22 19:18 | HP ---
HISTORY AND PHYSICAL CHIEF COMPLAINT: DKA. HISTORY OF PRESENT ILLNESS: This is another admission for this 27-year-old type 1 diabetic. He was discharged yesterday and came back in DKA. He goes home and does not take his insulin. REVIEW OF SYSTEMS: Unobtainable. Past medical history, family history, personal and social histories are all unchanged. PHYSICAL EXAMINATION: VITAL SIGNS: Normal. HEAD, EARS, EYES, NOSE, MOUTH AND THROAT: Normal. CHEST: Clear. CARDIAC: Normal. ABDOMEN: Soft, nontender. EXTREMITIES: Normal. IMPRESSION: 1. Diabetic ketoacidosis. 2. Lethargy. 3. Dehydration. PLAN: 1. DKA protocol. 2. Rehydrate. MMODL / IJN: [id number] /
== END 2023-06-22 14:38 | disposition home or self-care (01) | DRG 420 ==
LOC: EC 09:12 → 2SICU 11:16 → 5NMEDONC 06-22 13:08
PROVIDERS: ADMIT Family Medicine; ATTEND Family Medicine
DX: E10.10 Type 1 diabetes mellitus with ketoacidosis without coma (principal); E10.40 Type 1 diabetes mellitus with diabetic neuropathy, unspecified; E86.0 Dehydration; E87.5 Hyperkalemia; F17.200 Nicotine dependence, unspecified, uncomplicated; I10 Essential (primary) hypertension; J45.909 Unspecified asthma, uncomplicated; N17.9 Acute kidney failure, unspecified; Z79.4 Long term (current) use of insulin; Z79.899 Other long term (current) drug therapy; Z82.49 Family history of ischemic heart disease and other diseases of the circulatory system; Z91.148 Patient's other noncompliance with medication regimen for other reason; Z91.199 Patient's noncompliance with other medical treatment and regimen due to unspecified reason; T38.3X6A Underdosing of insulin and oral hypoglycemic [antidiabetic] drugs, initial encounter; Z91.128 Patient's intentional underdosing of medication regimen for other reason; T68.XXXA Hypothermia, initial encounter; L30.9 Dermatitis, unspecified
CPT/HCPCS: 36415; 51702; 71045; 80051; 80053; 82009; 82565; 82803; 82947; 83605; 83735; 84100; 84520; 85025; 93005; 96361; 96365; 96366; 96375; 96376; 99291

== ENCOUNTER 2023-06-23 08:39 | Inpatient (IN) | payer OTHER ==
[2023-06-23] MEDS ORDERED: SODIUM CHLORIDE 0.9% 2,000 ML IV STA (08:41)
[2023-06-23] MEDS ORDERED: droPERidol 5 MG/2 ML VIAL IVP ONE (08:41)
[2023-06-23 08:44] LABS: Glucose,Whole Blood 573 mg/dL (70-110)
--- NOTE | 2023-06-23 08:54 | ED ---
General Adult HPI - General Stated complaint: Hyperglycemia Time Seen by Provider: 06/23/23 08:41 Source: patient, EMS, RN notes reviewed, old records reviewed Mode of arrival: EMS Limitations: no limitations - History of Present Illness Initial comments: 27-year-old male presents emergency department with chief complaint of nausea, hyperglycemia. Patient was recently discharged in the hospital after pancreatitis. Patient is well-known to emergency room has recurrent admissions for DKA. Patient is known type I diabetic. Patient states he has not checked his blood sugar EMS reports that blood sugar was over 500. Patient denies chest pain, fever or chills - Related Data Home Medications Medication Instructions Recorded Confirmed Insulin Detemir (Levemir) [Levemir] 30 unit SQ HS 03/07/23 06/21/23 Ergocalciferol [Vitamin D2 (1250 1,250 mcg PO Q30D 04/29/23 06/21/23 Mcg = 22863 Iu)] Famotidine [Pepcid] 20 mg PO BID 04/29/23 06/21/23 Gabapentin 600 mg PO TID 04/29/23 06/21/23 Insulin Lispro [Insulin Lispro 7 units SQ AC-TID 04/29/23 06/21/23 Kwikpen U-100] Losartan Potassium 50 mg PO DAILY 04/29/23 06/21/23 Mirtazapine 7.5 mg PO HS 04/29/23 06/21/23 Allergies Allergy/AdvReac Type Severity Reaction Status Date / Time No Known Allergies Allergy Verified 06/21/23 11:38 Review of Systems ROS Statement: Those systems with pertinent positive or pertinent negative responses have been documented in the HPI. ROS Other: All systems not noted in ROS Statement are negative. Past Medical History Past Medical History: Asthma, Diabetes Mellitus, Neurologic Disorder, Skin Disorder Additional Past Medical History / Comment(s): IDDM type I, neuropathy bilateral feet, DKA, eczema. History of Any Multi-Drug Resistant Organisms: None Reported Past Surgical History: Adenoidectomy Additional Past Surgical History / Comment(s): 2003 Recent EGD- gastritis Past Anesthesia/Blood Transfusion Reactions: No Reported Reaction Past Psychological History: Anxiety, Depression Smoking Status: Former smoker Past Alcohol Use History: None Reported Past Drug Use History: Marijuana - Past Family History Mother Family Medical History: CVA/TIA Additional Family Medical History / Comment(s): TIA Father Family Medical History: Hyperlipidemia, Hypertension Additional Family Medical History / Comment(s): . General Exam Limitations: no limitations General appearance: alert, in no apparent distress Head exam: Present: atraumatic, normocephalic, normal inspection Eye exam: Present: normal appearance, PERRL, EOMI. Absent: scleral icterus, conjunctival injection, periorbital swelling ENT exam: Present: mucous membranes dry. Absent: normal exam, mucous membranes moist Neck exam: Present: normal inspection. Absent: tenderness, meningismus, lymphadenopathy Respiratory exam: Present: normal lung sounds bilaterally, other (Patient is tachypneic). Absent: respiratory distress, wheezes, rales, rhonchi, stridor Cardiovascular Exam: Present: normal rhythm, tachycardia, normal heart sounds. Absent: systolic murmur, diastolic murmur, rubs, gallop, clicks GI/Abdominal exam: Present: soft, normal bowel sounds. Absent: distended, tenderness, guarding, rebound, rigid Back exam: Absent: CVA tenderness (R), CVA tenderness (L) Neurological exam: Present: alert Course Vital Signs 06/23/23 08:41 Temperature 95 F L Pulse Rate 112 H Respiratory 28 H Rate Blood Pressure 111/64 O2 Sat by Pulse 95 Oximetry EKG Findings - EKG Comments: EKG Findings:: EKG 1 8: 53 sinus tachycardia rate of 111 MI 173 QRS 100 QT/QTc 359/424 - EKG Results: EKG: interpreted by JOANNE Medical Decision Making - Medical Decision Making Was pt. sent in by a medical professional or institution (, PA, PAYROLL TAX ANALYST, urgent care, hospital, or skilled nursing...) When possible be specific @ -No Did you speak to anyone other than the patient for history (EMS, parent, family, police, friend...)? What history was obtained from this source @ -EMS provided prehospital treatment, vitals] Did you review nursing and triage notes (agree or disagree)? Why? @ -I reviewed and agree with nursing and triage notes Were old charts reviewed (outside hosp., previous admission, EMS record, old EKG, old radiological studies, urgent care reports/EKG's, skilled nursing records)? Report findings @ -Prior laboratory studies, admissions Differential Diagnosis (chest pain, altered mental status, abdominal pain women, abdominal pain men, vaginal bleeding, weakness, fever, dyspnea, syncope, headache, dizziness, GI bleed, back pain, seizure, CVA, palpatations, mental health, musculoskeletal)? @ -[Hyperglycemia, DKA, pancreatitis EKG interpreted by me (3pts min.). @ -As above X-rays interpreted by me (1pt min.). @ -None done CT interpreted by me (1pt min.). @ -None done U/S interpreted by me (1pt. min.). @ -None done What testing was considered but not performed or refused? (CT, X-rays, U/S, labs)? Why? @ -None What meds were considered but not given or refused? Why? @ -None Did you discuss the management of the patient with other professionals (pro fessionals i.e. , PA, PAYROLL TAX ANALYST, lab, RT, psych nurse, social services specialist, button maker, teacher, bank secrecy act officer, welfare case worker)? Give summary @ -Dr. Valenzuela/Dr. Gonzalez for admission Was smoking cessation discussed for >3mins.? @ -No Was critical care preformed (if so, how long)? @ -[35 mins Were there social determinants of health that impacted care today? How? (Homelessness, low income, unemployed, alcoholism, drug addiction, transportation, low edu. Level, literacy, decrease access to med. care, skilled nursing, rehab)? @ -No Was there de-escalation of care discussed even if they declined (Discuss DNR or withdrawal of care, Hospice)? DNR status @ -No What co-morbidities impacted this encounter? (DM, HTN, Smoking, COPD, CAD, Cancer, CVA, ARF, Chemo, Hep., AIDS, mental health diagnosis, sleep apnea, morbid obesity)? @ -[DM Was patient admitted / discharged? Hospital course, mention meds given and route, prescriptions, significant lab abnormalities, going to OR and other pertinent info. @ -Admitted patient presented for hyperglycemia. Patient found to be in DKA. VBG reveals 624, pCO2 10, HCO3 2, potassium of 6.3 glucose 609 CO2 less than 5. Patient was given 2 L of fluid initially, started maintenance fluids, started on insulin drip. Patient case discussed with admitting physician and ICU Undiagnosed new problem with uncertain prognosis? @ -[No Drug Therapy requiring intensive monitoring for toxicity (Heparin, Nitro, Insulin, Cardizem)? @ -insulin Were any procedures done? @ -No Diagnosis/symptom? @ -DKA Acute, or Chronic, or Acute on Chronic? @ -[Acute Uncomplicated (without systemic symptoms) or Complicated (systemic symptoms)? @ -Uncomplicated Side effects of treatment? @ -[No Exacerbation, Progression, or Severe Exacerbation? @ -No Poses a threat to life or bodily function? How? (Chest pain, USA, PR, pneumonia, PE, COPD, DKA, ARF, appy, cholecystitis, CVA, Diverticulitis, Homicidal, Suici mickey, threat to staff... and all critical care pts) @ -Yes severe metabolic acidosis - Lab Data Result diagrams: 06/23/23 08:50 06/23/23 08:50 Lab Results 06/23/23 06/23/23 06/23/23 Range/Units 08:43 08:50 08:50 WBC 25.4 H (3.8-10.6) k/uL RBC 3.95 L (4.30-5.90) m/uL Hgb 11.2 L (13.0-17.5) gm/dL Hct 39.4 (39.0-53.0) % MCV 99.8 D (80.0-100.0) fL MCH 28.5 (25.0-35.0) pg MCHC 28.5 L (31.0-37.0) g/dL RDW 15.9 H (11.5-15.5) % Plt Count 450 (150-450) k/uL MPV 8.0 Hypochromasia Marked Macrocytosis Slight VBG pH (7.31-7.41) VBG pCO2 (37-51) mmHg VBG HCO3 (24-28) mmol/L Sodium 138 (137-145) mmol/L Potassium 6.3 H* (3.5-5.1) mmol/L Chloride 107 (98-107) mmol/L Carbon Dioxide <5 L* (22-30) mmol/L Anion Gap mmol/L BUN 19 (9-20) mg/dL Creatinine 1.33 H (0.66-1.25) mg/dL Est GFR (CKD-EPI)AfAm 86 (>60 ml/min/1.73 sqM) Est GFR (CKD-EPI)NonAf 74 (>60 ml/min/1.73 sqM) Glucose 609 H* (74-99) mg/dL POC Glucose (mg/dL) 573 H (70-110) mg/dL POC Glu Casting Wheel Operator Helper ID Janette Holloway Plasma Lactic Acid Len (0.7-2.0) mmol/L Calcium 8.8 (8.4-10.2) mg/dL Magnesium 2.1 (1.6-2.3) mg/dL Total Bilirubin 0.3 (0.2-1.3) mg/dL AST 24 (17-59) U/L ALT 25 (4-49) U/L Alkaline Phosphatase 136 H (38-126) U/L Total Protein 6.2 L (6.3-8.2) g/dL Albumin 4.0 (3.5-5.0) g/dL Amylase 168 H (30-110) U/L Lipase 1209 H (23-300) U/L 06/23/23 06/23/23 Range/Units 08:50 08:50 WBC (3.8-10.6) k/uL RBC (4.30-5.90) m/uL Hgb (13.0-17.5) gm/dL Hct (39.0-53.0) % MCV (80.0-100.0) fL MCH (25.0-35.0) pg MCHC (31.0-37.0) g/dL RDW (11.5-15.5) % Plt Count (150-450) k/uL MPV Hypochromasia Macrocytosis VBG pH 6.84 L* (7.31-7.41) VBG pCO2 10 L* (37-51) mmHg VBG HCO3 2 L* (24-28) mmol/L Sodium (137-145) mmol/L Potassium (3.5-5.1) mmol/L Chloride (98-107) mmol/L Carbon Dioxide (22-30) mmol/L Anion Gap mmol/L BUN (9-20) mg/dL Creatinine (0.66-1.25) mg/dL Est GFR (CKD-EPI)AfAm (>60 ml/min/1.73 sqM) Est GFR (CKD-EPI)NonAf (>60 ml/min/1.73 sqM) Glucose (74-99) mg/dL POC Glucose (mg/dL) (70-110) mg/dL POC Glu Casting Wheel Operator Helper ID Plasma Lactic Acid Len 1.9 (0.7-2.0) mmol/L Calcium (8.4-10.2) mg/dL Magnesium (1.6-2.3) mg/dL Total Bilirubin (0.2-1.3) mg/dL AST (17-59) U/L ALT (4-49) U/L Alkaline Phosphatase (38-126) U/L Total Protein (6.3-8.2) g/dL Albumin (3.5-5.0) g/dL Amylase (30-110) U/L Lipase (23-300) U/L Critical Care Time Critical Care Time: Yes Total Critical Care Time: 35 Disposition Clinical Impression: DKA (diabetic ketoacidoses) Disposition: ADMITTED IP TO THIS HOSP Referrals: Brown Valenzuela MD [Primary Care Provider] - 1-2 days Time of Disposition: 09:16
[2023-06-23 09:00] LABS: HCT 39.4 % (39.0-53.0); HGB 11.2 gm/dL (13.0-17.5); Hypochromasia Marked; MCH 28.5 pg (25.0-35.0); MCHC 28.5 g/dL (31.0-37.0); Macrocytosis Slight; Platelet Count 450 k/uL (150-450); RBC 3.95 m/uL (4.30-5.90); RDW 15.9 % (11.5-15.5); WBC 25.4 k/uL (3.8-10.6)
[2023-06-23 09:06] LABS: VBG PH 6.84 (7.31-7.41)
[2023-06-23] MEDS ORDERED: INSULIN REGULAR BOLUS (FROM DRIP BAG) IV ONE (09:14)
[2023-06-23 09:15] LABS: MCV 99.8 fL (80.0-100.0)
[2023-06-23 09:17] LABS: ALT 25 U/L (4-49); AST 24 U/L (17-59); African American GFR (CKD) 86 (>60 ml/min/1.73 sqM); Alkaline Phosphatase 136 U/L (38-126); Amylase 168 U/L (30-110); Blood Urea Nitrogen 19 mg/dL (9-20); Calcium 8.8 mg/dL (8.4-10.2); Chloride 107 mmol/L (98-107); Lipase 1209 U/L (23-300); Magnesium 2.1 mg/dL (1.6-2.3); Non-African American GFR(CKD) 74 (>60 ml/min/1.73 sqM); Sodium 138 mmol/L (137-145); Total Bilirubin 0.3 mg/dL (0.2-1.3); Total Protein 6.2 g/dL (6.3-8.2)
[2023-06-23 09:24] LABS: Glucose 609 mg/dL (74-99); Potassium 6.3 mmol/L (3.5-5.1)
[2023-06-23 09:27] LABS: Carbon Dioxide <5 mmol/L (22-30)
[2023-06-23 09:50] LABS: Lymphocytes # (M) 2.29 k/uL (1.0-4.8); Metamyelocytes # (M) 0.51 k/uL (0); Metamyelocytes % 2 %; Monocytes # (M) 0.51 k/uL (0-1.0); Myelocytes # (M) 0.51 k/uL (0); Myelocytes % 2 %; Neutrophils # (M) 21.84 k/uL (1.3-7.7); Neutrophils % (M) 86 %; Nucleated Red Blood Cells 0 /100 WBC (0-0); Total Cells Counted 200
[2023-06-23 09:56] LABS: Glucose,Whole Blood 582 mg/dL (70-110)
[2023-06-23] MEDS ORDERED: SODIUM BICARB 8.4% 50 ML SYR (1 MEQ/ML) IV STA (09:57)
[2023-06-23 10:01] LABS: Crenated RBC Present; Toxic Granulation Present
[2023-06-23] MEDS: SODIUM CHLORIDE 0.9% 1,000 ML IV SCH ×2 (10:07→14:43)
[2023-06-23] MEDS: INSULIN REGULAR 100 UNIT in SODIUM CHLORIDE 0.9% 100 ML IV SCH (10:21)
[2023-06-23 10:52] LABS: Appearance,Urine Clear (Clear); Bacteria,Urine Rare /hpf; Bilirubin,Urine Negative (Negative); Blood,Urine Small (Negative); Color,Urine Colorless; Glucose,Urine (UA) 4+ (Negative); Leukocyte Esterase,Urine Negative (Negative); Mucus,Urine Rare /hpf; Nitrite,Urine Negative (Negative); Protein,Urine Trace (Negative); RBC,Urine 8 /hpf (0-5); Specific Gravity,Urine 1.017 (1.001-1.035); Squamous Epithelial Cell,Urine <1 /hpf (0-4); Urobilinogen,Urine <2.0 mg/dL (<2.0)
[2023-06-23 11:01] LABS: Glucose,Whole Blood >600 mg/dL (70-110)
[2023-06-23 11:03] LABS: Ketones,Urine 4+ (Negative)
[2023-06-23 12:14] LABS: Glucose,Whole Blood 518 mg/dL (70-110)
[2023-06-23] MEDS ORDERED: INSULN SQ SCH (12:30)
[2023-06-23] MEDS ORDERED: [UNRECOGNIZED DRUG - OTHER] SQ SCH (12:30)
[2023-06-23] MEDS ORDERED: INSULIN LISPRO 100 UNIT/ML SQ SCH (12:30)
[2023-06-23 12:34] LABS: African American GFR (CKD) >90 (>60 ml/min/1.73 sqM); Blood Urea Nitrogen 19 mg/dL (9-20); Chloride 108 mmol/L (98-107); Glucose 499 mg/dL (74-99); Non-African American GFR(CKD) 80 (>60 ml/min/1.73 sqM); Potassium 5.6 mmol/L (3.5-5.1); Sodium 136 mmol/L (137-145)
[2023-06-23 12:37] LABS: Carbon Dioxide <5 mmol/L (22-30)
[2023-06-23 13:04] LABS: Glucose,Whole Blood 427 mg/dL (70-110)
[2023-06-23 14:03] LABS: Glucose,Whole Blood 284 mg/dL (70-110)
[2023-06-23] MEDS: D5-0.45% NACL WITH KCL 20MEQ/L 1,000 ML IV SCH ×2 (15:04→22:20)
[2023-06-23 15:09] LABS: Glucose,Whole Blood 177 mg/dL (70-110)
[2023-06-23 16:02] LABS: Glucose,Whole Blood 141 mg/dL (70-110)
[2023-06-23 17:20] LABS: African American GFR (CKD) >90 (>60 ml/min/1.73 sqM); Anion Gap 20 mmol/L; Blood Urea Nitrogen 17 mg/dL (9-20); Chloride 110 mmol/L (98-107); Glucose 127 mg/dL (74-99); Non-African American GFR(CKD) >90 (>60 ml/min/1.73 sqM); Phosphorus 2.4 mg/dL (2.5-4.5); Potassium 4.3 mmol/L (3.5-5.1); Sodium 136 mmol/L (137-145)
[2023-06-23 17:28] LABS: Carbon Dioxide 6 mmol/L (22-30)
[2023-06-23 17:56] LABS: Glucose,Whole Blood 97 mg/dL (70-110)
[2023-06-23 18:39] LABS: Glucose,Whole Blood 96 mg/dL (70-110)
[2023-06-23 18:58] LABS: Chol/HDL Ratio 3.37 Ratio; LDL Cholesterol,Calculated 41.6 mg/dL (0.0-131.0)
[2023-06-23 19:03] LABS: Glucose,Whole Blood 94 mg/dL (70-110)
[2023-06-23 19:33] LABS: Glucose,Whole Blood 125 mg/dL (70-110)
--- NOTE | 2023-06-23 19:39 | HP ---
HISTORY AND PHYSICAL CHIEF COMPLAINT: Lethargy and DKA. HISTORY OF PRESENT ILLNESS: This is another admission for this gentleman. He was just discharged yesterday. Brought back in by ambulance again today on diabetic ketoacidosis. There is nothing further that can be done to prevent his readmissions. He apparently lives with his mother, does not take his medications or insulin, she calls an ambulance and he comes back in. In the past, there was an effort made to try to sign him to a guardian, but the guardian also gave up on him. REVIEW OF SYSTEMS: Unobtainable. Past medical history, family history, personal and social histories are unchanged. LABORATORY DATA: Laboratory studies in the emergency room revealed a pH of 6.84 with a blood sugar 609. Lipase was 1209. His pCO2 was 10. Bicarb was low as well. PHYSICAL EXAMINATION: GENERAL: He is lethargic. HEAD, EARS, EYES, NOSE, AND MOUTH: Normal. CHEST: Clear. CARDIAC: Demonstrates sinus tachycardia. ABDOMEN: Soft, nontender. EXTREMITIES: Normal. NEUROLOGIC: He is lethargic. IMPRESSION: 1. Diabetic ketoacidosis. 2. Dehydration. 3. Gastroparesis. 4. Peripheral neuropathy. 5. Depression. PLAN: DKA management once again. MMODL / IJN: [id number] /
[2023-06-23 20:12] LABS: Glucose,Whole Blood 171 mg/dL (70-110)
[2023-06-23 20:55] LABS: Glucose,Whole Blood 175 mg/dL (70-110)
[2023-06-23] MEDS ORDERED: INSULIN DETEMIR (LEVEMIR) 100 UNIT/ML SYR SQ SCH (21:00)
[2023-06-23] MEDS ORDERED: CHLORHEXIDINE GLUCONATE 15 ML CUP MUCOUS MEM SCH (21:00)
[2023-06-23 21:05] LABS: African American GFR (CKD) >90 (>60 ml/min/1.73 sqM); Anion Gap 17 mmol/L; Blood Urea Nitrogen 15 mg/dL (9-20); Calcium 7.9 mg/dL (8.4-10.2); Chloride 108 mmol/L (98-107); Glucose 168 mg/dL (74-99); Non-African American GFR(CKD) >90 (>60 ml/min/1.73 sqM); Potassium 4.6 mmol/L (3.5-5.1); Sodium 132 mmol/L (137-145)
[2023-06-23 21:16] LABS: Carbon Dioxide 7 mmol/L (22-30)
[2023-06-23 22:03] LABS: Glucose,Whole Blood 165 mg/dL (70-110)
[2023-06-23 23:06] LABS: Glucose,Whole Blood 140 mg/dL (70-110)
[2023-06-24 00:01] LABS: Glucose,Whole Blood 142 mg/dL (70-110)
[2023-06-24 01:06] LABS: Glucose,Whole Blood 180 mg/dL (70-110)
[2023-06-24 01:20] LABS: African American GFR (CKD) >90 (>60 ml/min/1.73 sqM); Anion Gap 10 mmol/L; Blood Urea Nitrogen 13 mg/dL (9-20); Carbon Dioxide 13 mmol/L (22-30); Chloride 107 mmol/L (98-107); Glucose 133 mg/dL (74-99); Non-African American GFR(CKD) >90 (>60 ml/min/1.73 sqM); Potassium 4.4 mmol/L (3.5-5.1); Sodium 130 mmol/L (137-145)
[2023-06-24 02:03] LABS: Glucose,Whole Blood 238 mg/dL (70-110)
--- NOTE | 2023-06-24 02:11 | P.CNPUL ---
History of Present Illness Consult date: 06/24/23 Requesting physician: Cirilo Raymond Reason for consult: other (DKA) Chief complaint: Hyperglycemia, nausea/dry heaves History of present illness: This is a 27-year-old white male with past medical history significant for type 1 diabetes mellitus and medication noncompliance. Patient has had numerous hospital admissions for diabetic ketoacidosis, most recent hospital admission was 3 days ago for the same. He was also noted to have acute pancreatitis at this time. He was just discharged 2 days ago, and has had 6 hospital admissions so far this year. Patient was brought in earlier this morning for chiefly the complaint of nausea, dry heaves and high blood sugar. He is currently alert and oriented, in no acute distress. Patient states that he has insulin at home if he chooses to take it. Denies any abdominal pain, diarrhea, constipation, hematemesis. Denies any infectious symptoms. His blood sugars were elevated at home. He was found to be in DKA on arrival to the emergency room yesterday. Serum bicarb was 7 on arrival, anion gap 17, acetone positive, blood glucose was 609. VBG had a pCO2 of 10 and pH of 6.84. Potassium level he was 6.3, but has since corrected and is down to 4.4. He has been started on the DKA protocol. D5W with half-normal saline and 20 mEq/L of potassium is infusing at 150 MLS per hour. Insulin is infusing at 6.4 units/h. Most recent BMP has a sodium 130, potassium 4.4, chloride 107, serum bicarb up to 13, anion gap 10, BUN 13, creatinine 0.79, glucose 133. Amylase and lipase are elevated at 168 and 1209 respectively. These are trending down from his recent hospital admission. CBC from yesterday is a WBC count of 25.4, hemoglobin 11.2, hematocrit 39.4, platelets 450. No evidence of infectious process. He is afebrile. He is on room air. His nausea has subsided, and he is tolerating oral intake. vitals are stable. Review of Systems REVIEW OF SYSTEMS: CONSTITUTIONAL: Denies any recent significant weight loss or weight gain. EYES: Denies change in vision. EARS, NOSE, MOUTH, THROAT: Denies headaches, denies sore throat. CARDIOVASCULAR: Denies chest pain, palpitations or syncopal episodes. RESPIRATORY: Denies shortness of breath, cough, congestion or hemoptysis. GASTROINTESTINAL: Denies change in appetite, abdominal pain,or diarrhea. Admits nausea and vomiting following elevated blood sugars. GENITOURINARY: Denies hematuria, denies infections. MUSKULOSKELETAL: Denies pain, denies swelling. INTEGUMENTARY: Denies rash, denies eczema. NEUROLOGICAL: Denies recent memory loss, no recent seizure activity. PSYCHIATRIC: Denies anxiety, denies depression. HEMATOLOGIC/LYMPHATIC: Denies anemia, denies enlarged lymph node Past Medical History Past Medical History: Asthma, Diabetes Mellitus, Neurologic Disorder, Skin Dis order Additional Past Medical History / Comment(s): IDDM type I, neuropathy bilateral feet, DKA, eczema. History of Any Multi-Drug Resistant Organisms: None Reported Past Surgical History: Adenoidectomy Additional Past Surgical History / Comment(s): 2002 Recent EGD- gastritis Past Anesthesia/Blood Transfusion Reactions: No Reported Reaction Past Psychological History: Anxiety, Depression Additional Psychological History / Comment(s): Pt has had multiple psychiatric admissions for depression/suicide attempts. Smoking Status: Former smoker Past Alcohol Use History: None Reported Additional Past Alcohol Use History / Comment(s): Pt started smoking cigarettes as a teen and quit "long ago." Pt started occasional vaping in 2009. Past Drug Use History: Marijuana Additional Drug Use History / Comment(s): Occasional - Past Family History Mother Family Medical History: CVA/TIA Additional Family Medical History / Comment(s): TIA Father Family Medical History: Hyperlipidemia, Hypertension Additional Family Medical History / Comment(s): . Medications and Allergies Home Medications Medication Instructions Recorded Confirmed Type Insulin Detemir (Levemir) [Levemir] 30 unit SQ HS 03/07/23 06/23/23 History Ergocalciferol [Vitamin D2 (1250 1,250 mcg PO Q30D 04/29/23 06/23/23 History Mcg = 95880 Iu)] Famotidine [Pepcid] 20 mg PO BID 04/29/23 06/23/23 History Gabapentin 600 mg PO TID 04/29/23 06/23/23 History Insulin Lispro [Insulin Lispro 7 units SQ AC-TID 04/29/23 06/23/23 History Kwikpen U-100] Losartan Potassium 50 mg PO DAILY 04/29/23 06/23/23 History Mirtazapine 7.5 mg PO HS 04/29/23 06/23/23 History Allergies Allergy/AdvReac Type Severity Reaction Status Date / Time No Known Allergies Allergy Verified 06/23/23 10:32 Physical Exam Vitals: Vital Signs Temp Pulse Resp BP Pulse Ox FiO2 06/24/23 01:00 98 17 114/80 99 06/24/23 00:00 97.9 F 88 14 129/91 98 06/23/23 23:00 89 18 118/82 100 06/23/23 22:00 93 21 125/84 99 06/23/23 21:00 89 15 109/63 99 06/23/23 20:18 100 06/23/23 20:00 98.2 F 96 13 120/83 99 06/23/23 19:00 91 16 129/87 99 06/23/23 18:30 97.9 F 93 18 114/79 100 06/23/23 16:09 98.4 F 06/23/23 15:00 101 H 124/88 100 06/23/23 14:30 101 H 119/83 100 06/23/23 14:00 115 H 128/93 100 06/23/23 13:30 118 H 106/81 100 06/23/23 13:00 117/79 99 06/23/23 12:41 103/62 100 06/23/23 10:54 91.2 F L 101 H 18 90/46 100 06/23/23 10:48 90.5 F L 06/23/23 10:22 91 F L 105 H 22 83/46 100 06/23/23 09:49 102 H 24 101/51 100 06/23/23 08:41 95 F L 112 H 28 H 111/64 95 Intake and Output 06/23/23 06/23/23 06/24/23 14:59 22:59 06:59 Intake Total 27. 618.905 457.562 Output Total 1710 200 Balance 27.26 -1091.095 257.562 Intake: IV 600 450 D5-0.45% NaCl with KCl 600 450 20Meq/l 1,000 ml @ 150 mls/hr IV .[id number] [facility] Rx# :[id number] Intake, IV Titration 27.26 18.905 7.562 Amount Insulin Regular 100 unit 27.26 18.905 7.562 In Sodium Chloride 0.9% 100 ml @ 0.1 UNITS/KG/HR 6.414 mls/hr IV .[id number] [facility] Rx#:[id number] Output: Urine 1710 200 Uretheral (Hallman) 1300 Other: Voiding Method Indwelling Catheter Urinal Weight 63.503 kg 63.503 kg GENERAL EXAM: Alert, disheveled 27-year-old white male, fairly comfortable in no apparent distress. HEAD: Normocephalic and atraumatic EYES: Normal reaction of pupils, equal size. NOSE: Clear with pink turbinates. THROAT: No erythema or exudates. Poor dentition. Dry mucous membranes NECK: No masses, no JVD. CHEST: No chest wall deformity. LUNGS: Equal air entry with no crackles, wheeze, rhonchi or dullness. On room air. No conversational dyspnea or accessory muscle use. CVS: S1 and S2 normal with no audible murmur, regular rhythm. No extra heart sounds ABDOMEN: No hepatosplenomegaly, active bowel sounds, no guarding or rigidity. SPINE: No scoliosis or deformity SKIN: No rashes CENTRAL NERVOUS SYSTEM: No focal deficits, tone is normal in all 4 extremities. EXTREMITIES: There is no peripheral edema, clubbing, or cyanosis. Peripheral pulses are intact. Results - Laboratory Findings CBC and BMP: 06/23/23 08:50 06/24/23 00:17 Abnormal lab findings: Abnormal Labs 06/23/23 06/23/23 06/23/23 08:43 08:50 08:50 WBC 25.4 H RBC 3.95 L Hgb 11.2 L MCHC 28.5 L RDW 15.9 H Neutrophils # (Manual) 21.84 H Metamyelocytes # (Man) 0.51 H Myelocytes # (Manual) 0.51 H VBG pH VBG pCO2 VBG HCO3 Sodium Potassium Chloride Carbon Dioxide Creatinine Glucose POC Glucose (mg/dL) 573 H Calcium Phosphorus Alkaline Phosphatase Total Protein Triglycerides HDL Cholesterol Amylase Lipase Urine Protein Trace H Urine Glucose (UA) 4+ H Urine Ketones 4+ H Urine Blood Small H Urine RBC 8 H Urine Bacteria Rare H Urine Mucus Rare H 06/23/23 06/23/23 06/23/23 08:50 08:50 09:54 WBC RBC Hgb MCHC RDW Neutrophils # (Manual) Metamyelocytes # (Man) Myelocytes # (Manual) VBG pH 6.84 L* VBG pCO2 10 L* VBG HCO3 2 L* Sodium Potassium 6.3 H* Chloride Carbon Dioxide <5 L* Creatinine 1.33 H Glucose 609 H* POC Glucose (mg/dL) 582 H Calcium Phosphorus Alkaline Phosphatase 136 H Total Protein 6.2 L Triglycerides HDL Cholesterol Amylase 168 H Lipase 1209 H Urine Protein Urine Glucose (UA) Urine Ketones Urine Blood Urine RBC Urine Bacteria Urine Mucus 06/23/23 06/23/23 06/23/23 10:59 12:07 12:13 WBC RBC Hgb MCHC RDW Neutrophils # (Manual) Metamyelocytes # (Man) Myelocytes # (Manual) VBG pH VBG pCO2 VBG HCO3 Sodium Potassium Chloride Carbon Dioxide Creatinine Glucose POC Glucose (mg/dL) >600 H 518 H Calcium Phosphorus 7.0 H Alkaline Phosphatase Total Protein Triglycerides HDL Cholesterol Amylase Lipase Urine Protein Urine Glucose (UA) Urine Ketones Urine Blood Urine RBC Urine Bacteria Urine Mucus 06/23/23 06/23/23 06/23/23 12:13 13:02 14:02 WBC RBC Hgb MCHC RDW Neutrophils # (Manual) Metamyelocytes # (Man) Myelocytes # (Manual) VBG pH VBG pCO2 VBG HCO3 Sodium 136 L Potassium 5.6 H Chloride 108 H Carbon Dioxide <5 L* Creatinine Glucose 499 H POC Glucose (mg/dL) 427 H 284 H Calcium Phosphorus Alkaline Phosphatase Total Protein Triglycerides 200.00 H HDL Cholesterol 34.40 L Amylase Lipase Urine Protein Urine Glucose (UA) Urine Ketones Urine Blood Urine RBC Urine Bacteria Urine Mucus 06/23/23 06/23/23 06/23/23 15:08 16:01 16:08 WBC RBC Hgb MCHC RDW Neutrophils # (Manual) Metamyelocytes # (Man) Myelocytes # (Manual) VBG pH VBG pCO2 VBG HCO3 Sodium 136 L Potassium Chloride 110 H Carbon Dioxide 6 L* Creatinine Glucose 127 H POC Glucose (mg/dL) 177 H 141 H Calcium Phosphorus 2.4 L Alkaline Phosphatase Total Protein Triglycerides HDL Cholesterol Amylase Lipase Urine Protein Urine Glucose (UA) Urine Ketones Urine Blood Urine RBC Urine Bacteria Urine Mucus 06/23/23 06/23/23 06/23/23 19:32 20:11 20:42 WBC RBC Hgb MCHC RDW Neutrophils # (Manual) Metamyelocytes # (Man) Myelocytes # (Manual) VBG pH VBG pCO2 VBG HCO3 Sodium 132 L Potassium Chloride 108 H Carbon Dioxide 7 L* Creatinine Glucose 168 H POC Glucose (mg/dL) 125 H 171 H Calcium 7.9 L Phosphorus Alkaline Phosphatase Total Protein Triglycerides HDL Cholesterol Amylase Lipase Urine Protein Urine Glucose (UA) Urine Ketones Urine Blood Urine RBC Urine Bacteria Urine Mucus 06/23/23 06/23/23 06/23/23 20:53 22:01 23:05 WBC RBC Hgb MCHC RDW Neutrophils # (Manual) Metamyelocytes # (Man) Myelocytes # (Manual) VBG pH VBG pCO2 VBG HCO3 Sodium Potassium Chloride Carbon Dioxide Creatinine Glucose POC Glucose (mg/dL) 175 H 165 H 140 H Calcium Phosphorus Alkaline Phosphatase Total Protein Triglycerides HDL Cholesterol Amylase Lipase Urine Protein Urine Glucose (UA) Urine Ketones Urine Blood Urine RBC Urine Bacteria Urine Mucus 06/24/23 06/24/23 06/24/23 00:00 00:17 01:05 WBC RBC Hgb MCHC RDW Neutrophils # (Manual) Metamyelocytes # (Man) Myelocytes # (Manual) VBG pH VBG pCO2 VBG HCO3 Sodium 130 L Potassium Chloride Carbon Dioxide 13 L Creatinine Glucose 133 H POC Glucose (mg/dL) 142 H 180 H Calcium 8.0 L Phosphorus Alkaline Phosphatase Total Protein Triglycerides HDL Cholesterol Amylase Lipase Urine Protein Urine Glucose (UA) Urine Ketones Urine Blood Urine RBC Urine Bacteria Urine Mucus Assessment and Plan Assessment: Acute diabetic ketoacidosis, likely secondary to medication noncompliance. Patient has had numerous episodes of DKA, recently admitted on 06/21/2023 for the same. He has already had 6 hospitalizations for DKA so far this year. Severe anion gap metabolic acidosis, secondary to above Recent history of acute pancreatitis, lipase levels improving Severe dehydration Acute kidney injury, prerenal, secondary to above Severe hyperkalemia, improved Hyperphosphatemia Type 1 diabetes mellitus, with poor medication compliance. Acute leukocytosis, likely reactive to DKA Diabetic neuropathy History of major depression Chronic marijuana use Chronic ongoing nicotine dependence Plan: Patient's medications, labs, and chest x-ray were noted Continue DKA protocol Insulin infusion per protocol Fluid resuscitated with 2 L normal saline bolus in the emergency room, and has D5W/.45% saline/20 meq K infusing at 150 ml/hr Hyperkalemia is improved. Continue to monitor electrolytes every 4 hours. Patient will be monitored in the intensive care unit until his DKA resolves. I have personally seen and examined the patient, performed the documentation and the assessment and plan as written. Number of minutes spent on the visit:20 Time with Patient: Greater than 30
[2023-06-24 03:08] LABS: Glucose,Whole Blood 222 mg/dL (70-110)
[2023-06-24 03:59] LABS: Glucose,Whole Blood 209 mg/dL (70-110)
[2023-06-24] MEDS: INSULIN REGULAR 100 UNIT in SODIUM CHLORIDE 0.9% 100 ML IV SCH ×2 (04:04→14:32)
[2023-06-24 04:18] LABS: Anisocytosis Slight; HCT 27.7 % (39.0-53.0); MCH 28.9 pg (25.0-35.0); MCHC 33.5 g/dL (31.0-37.0); Mean Platelet Volume 6.8; Platelet Count 299 k/uL (150-450); RBC 3.22 m/uL (4.30-5.90); RDW 16.8 % (11.5-15.5); WBC 17.7 k/uL (3.8-10.6)
[2023-06-24 04:27] LABS: HGB 9.3 gm/dL (13.0-17.5); MCV 86.1 fL (80.0-100.0)
[2023-06-24 04:28] LABS: African American GFR (CKD) >90 (>60 ml/min/1.73 sqM); Anion Gap 10 mmol/L; Blood Urea Nitrogen 11 mg/dL (9-20); Calcium 7.9 mg/dL (8.4-10.2); Carbon Dioxide 14 mmol/L (22-30); Chloride 104 mmol/L (98-107); Glucose 195 mg/dL (74-99); Non-African American GFR(CKD) >90 (>60 ml/min/1.73 sqM); Potassium 4.2 mmol/L (3.5-5.1); Sodium 128 mmol/L (137-145)
[2023-06-24 05:04] LABS: Glucose,Whole Blood 194 mg/dL (70-110)
[2023-06-24] MEDS: D5-0.45% NACL WITH KCL 20MEQ/L 1,000 ML IV SCH ×3 (05:21→17:24)
[2023-06-24 06:33] LABS: Glucose,Whole Blood 203 mg/dL (70-110)
[2023-06-24 07:59] LABS: Glucose,Whole Blood 181 mg/dL (70-110)
[2023-06-24 09:22] LABS: Glucose,Whole Blood 188 mg/dL (70-110)
[2023-06-24 09:58] LABS: African American GFR (CKD) >90 (>60 ml/min/1.73 sqM); Anion Gap 9 mmol/L; Blood Urea Nitrogen 8 mg/dL (9-20); Calcium 7.8 mg/dL (8.4-10.2); Carbon Dioxide 16 mmol/L (22-30); Chloride 104 mmol/L (98-107); Glucose 169 mg/dL (74-99); Non-African American GFR(CKD) >90 (>60 ml/min/1.73 sqM); Potassium 3.7 mmol/L (3.5-5.1); Sodium 129 mmol/L (137-145)
[2023-06-24 10:19] LABS: Glucose,Whole Blood 177 mg/dL (70-110)
[2023-06-24 11:20] LABS: Glucose,Whole Blood 186 mg/dL (70-110)
[2023-06-24 12:06] LABS: Glucose,Whole Blood 180 mg/dL (70-110)
[2023-06-24 13:07] LABS: Glucose,Whole Blood 257 mg/dL (70-110)
[2023-06-24 14:10] LABS: Glucose,Whole Blood 311 mg/dL (70-110)
[2023-06-24 14:38] LABS: African American GFR (CKD) >90 (>60 ml/min/1.73 sqM); Anion Gap 5 mmol/L; Blood Urea Nitrogen 5 mg/dL (9-20); Calcium 7.8 mg/dL (8.4-10.2); Carbon Dioxide 20 mmol/L (22-30); Chloride 103 mmol/L (98-107); Glucose 280 mg/dL (74-99); Non-African American GFR(CKD) >90 (>60 ml/min/1.73 sqM); Phosphorus 1.9 mg/dL (2.5-4.5); Potassium 4.2 mmol/L (3.5-5.1); Sodium 128 mmol/L (137-145)
[2023-06-24 14:58] LABS: Glucose,Whole Blood 315 mg/dL (70-110)
[2023-06-24 16:09] LABS: Glucose,Whole Blood 306 mg/dL (70-110)
[2023-06-24 17:12] LABS: Glucose,Whole Blood 207 mg/dL (70-110)
[2023-06-24] MEDS: INSULIN ASPART (NovoLOG) 100 UNIT/ML VIAL SQ SCH ×3 (17:22→20:06)
[2023-06-24 20:03] LABS: Glucose,Whole Blood 269 mg/dL (70-110)
[2023-06-24] MEDS ORDERED: INSULIN DETEMIR (LEVEMIR) 100 UNIT/ML SYR SQ SCH (21:00)
--- NOTE | 2023-06-24 21:46 | PN ---
PROGRESS NOTE DATE OF SERVICE: 06/24/2023 CHIEF COMPLAINT: Diabetic ketoacidosis. HISTORY OF PRESENT ILLNESS: This gentleman is doing a bit better, but his gap is not closed. PHYSICAL EXAMINATION: CHEST: Clear. CARDIAC: Demonstrates sinus tachycardia. ABDOMEN: Soft, nontender. IMPRESSION: 1. Diabetic ketoacidosis. 2. Depression. 3. Uncontrolled type 1 insulin-dependent diabetes mellitus. PLAN: Advance diet and activity and continue his insulin drip until he can be transitioned. MMODL / IJN: [id number] /
[2023-06-25 01:07] LABS: Anisocytosis Slight; HCT 29.9 % (39.0-53.0); HGB 10.4 gm/dL (13.0-17.5); MCH 29.4 pg (25.0-35.0); MCHC 34.6 g/dL (31.0-37.0); MCV 85.1 fL (80.0-100.0); Mean Platelet Volume 7.4; Platelet Count 278 k/uL (150-450); RBC 3.52 m/uL (4.30-5.90); RDW 16.7 % (11.5-15.5); WBC 7.7 k/uL (3.8-10.6)
[2023-06-25 01:21] LABS: Anion Gap 5 mmol/L; Blood Urea Nitrogen 3 mg/dL (9-20); Carbon Dioxide 26 mmol/L (22-30); Chloride 104 mmol/L (98-107); Glucose 78 mg/dL (74-99); Potassium 3.2 mmol/L (3.5-5.1); Sodium 135 mmol/L (137-145)
[2023-06-25 01:22] LABS: African American GFR (CKD) >90 (>60 ml/min/1.73 sqM); Calcium 8.2 mg/dL (8.4-10.2); Non-African American GFR(CKD) >90 (>60 ml/min/1.73 sqM); Phosphorus 1.9 mg/dL (2.5-4.5)
[2023-06-25 02:04] LABS: Glucose,Whole Blood 62 mg/dL (70-110)
[2023-06-25] MEDS: INSULIN ASPART (NovoLOG) 100 UNIT/ML VIAL SQ SCH ×7 (02:07→17:23)
[2023-06-25 02:29] LABS: Glucose,Whole Blood 71 mg/dL (70-110)
[2023-06-25] MEDS: POTASSIUM CHLORIDE ER 20 MEQ TAB.ER PO SCH ×2 (02:29→03:34)
[2023-06-25 06:42] LABS: Glucose,Whole Blood 102 mg/dL (70-110)
[2023-06-25 10:00] VITALS: TEMP 97.7
--- NOTE | 2023-06-25 11:07 | P.PN ---
Subjective Progress Note Date: 06/25/23 This is a 27-year-old male with past medical history significant for type 1 diabetes mellitus and medication noncompliance. Patient has had numerous hospital admissions for diabetic ketoacidosis, most recent hospital admission was 3 days ago for the same. He was also noted to have acute pancreatitis at this time. He was just discharged 2 days ago, and has had 6 hospital admissions so far this year. Patient was brought in earlier this morning for chiefly the complaint of nausea, dry heaves and high blood sugar. He is currently alert and oriented, in no acute distress. Patient states that he has insulin at home if he chooses to take it. Denies any abdominal pain, diarrhea, constipation, hemat emesis. Denies any infectious symptoms. His blood sugars were elevated at home. He was found to be in DKA on arrival to the emergency room yesterday. Serum bicarb was 7 on arrival, anion gap 17, acetone positive, blood glucose was 609. VBG had a pCO2 of 10 and pH of 6.84. Potassium level he was 6.3, but has since corrected and is down to 4.4. He has been started on the DKA protocol. D5W with half-normal saline and 20 mEq/L of potassium is infusing at 150 MLS per hour. Insulin is infusing at 6.4 units/h. Most recent BMP has a sodium 130, potassium 4.4, chloride 107, serum bicarb up to 13, anion gap 10, BUN 13, creatinine 0.79, glucose 133. Amylase and lipase are elevated at 168 and 1209 respectively. These are trending down from his recent hospital admission. CBC from yesterday is a WBC count of 25.4, hemoglobin 11.2, hematocrit 39.4, platelets 450. No evidence of infectious process. He is afebrile. He is on room air. His nausea has subsided, and he is tolerating oral intake. vitals are stable. The patient is seen today June 25, 2023 in follow-up in the intensive care unit. He is awake and alert in no acute distress. He is maintaining good O2 saturations in the upper 90s on room air. Afebrile. Hemodynamically stable. White count 7.7. Hemoglobin 10.4. Platelets 278. Sodium 135. Potassium 3.2. Bicarb 26. Anion gap 5. BUN 3. Creatinine 0.76. Glucose 78. He has been transition to Levemir and NovoLog sliding scale. He has D5 and a half normal saline with 20 of KCl at 50 MLS per hour. Objective - Vital Signs Vital signs: Vital Signs Temp 97.7 F 06/25/23 08:00 Pulse 81 06/25/23 08:00 Resp 18 06/25/23 08:00 BP 131/96 06/25/23 08:00 Pulse Ox 100 06/25/23 08:00 FiO2 100 06/23/23 20:18 Intake & Output 06/24/23 06/25/23 06/25/23 18:59 06:59 18:59 Intake Total 0053.940 9862 Output Total 2640 2300 Balance -921.535 -290 Intake: IV 1700 50 D5-0.45% NaCl with KCl 1700 50 20Meq/l 1,000 ml @ 50 mls /hr IV .Q20H [facility] Rx#: [id number] Intake, IV Titration 18.465 Amount Insulin Regular 100 unit 18.465 In Sodium Chloride 0.9% 100 ml @ 0.1 UNITS/KG/HR 6.414 mls/hr IV .[id number] [facility] Rx#:[id number] Oral 1958 Output: Urine 2640 2300 Other: Voiding Method Urinal Urinal - Exam GENERAL EXAM: Alert, pleasant, thin 27-year-old male, on room air, comfortable in no apparent distress. HEAD: Normocephalic. EYES: Normal reaction of pupils, equal size. NOSE: Clear with pink turbinates. THROAT: No erythema or exudates. NECK: No masses, no JVD. CHEST: No chest wall deformity. LUNGS: Equal air entry with no crackles, wheeze, rhonchi or dullness. CVS: S1 and S2 normal with no audible murmur, regular rhythm. ABDOMEN: No hepatosplenomegaly, normal bowel sounds, no guarding or rigidity. SPINE: No scoliosis or deformity SKIN: No rashes CENTRAL NERVOUS SYSTEM: No focal deficits, tone is normal in all 4 extremities. EXTREMITIES: There is no peripheral edema. No clubbing, no cyanosis. Peripheral pulses are intact. - Labs CBC & Chem 7: 06/25/23 00:57 06/25/23 00:57 Labs: Abnormal Lab Results - Last 24 Hours (Table) 06/24/23 06/24/23 06/24/23 Range/Units 11:19 12:05 13:05 RBC (4.30-5.90) m/uL Hgb (13.0-17.5) gm/dL Hct (39.0-53.0) % RDW (11.5-15.5) % Sodium (137-145) mmol/L Potassium (3.5-5.1) mmol/L Carbon Dioxide (22-30) mmol/L BUN (9-20) mg/dL Creatinine (0.66-1.25) mg/dL Glucose (74-99) mg/dL POC Glucose (mg/dL) 186 H 180 H 257 H (70-110) mg/dL Calcium (8.4-10.2) mg/dL Phosphorus (2.5-4.5) mg/dL 06/24/23 06/24/23 06/24/23 Range/Units 13:58 14:08 14:57 RBC (4.30-5.90) m/uL Hgb (13.0-17.5) gm/dL Hct (39.0-53.0) % RDW (11.5-15.5) % Sodium 128 L (137-145) mmol/L Potassium (3.5-5.1) mmol/L Carbon Dioxide 20 L (22-30) mmol/L BUN 5 L (9-20) mg/dL Creatinine 0.65 L (0.66-1.25) mg/dL Glucose 280 H (74-99) mg/dL POC Glucose (mg/dL) 311 H 315 H (70-110) mg/dL Calcium 7.8 L (8.4-10.2) mg/dL Phosphorus 1.9 L (2.5-4.5) mg/dL 06/24/23 06/24/23 06/24/23 Range/Units 16:08 17:11 20:01 RBC (4.30-5.90) m/uL Hgb (13.0-17.5) gm/dL Hct (39.0-53.0) % RDW (11.5-15.5) % Sodium (137-145) mmol/L Potassium (3.5-5.1) mmol/L Carbon Dioxide (22-30) mmol/L BUN (9-20) mg/dL Creatinine (0.66-1.25) mg/dL Glucose (74-99) mg/dL POC Glucose (mg/dL) 306 H 207 H 269 H (70-110) mg/dL Calcium (8.4-10.2) mg/dL Phosphorus (2.5-4.5) mg/dL 06/25/23 06/25/23 06/25/23 Range/Units 00:57 00:57 02:02 RBC 3.52 L (4.30-5.90) m/uL Hgb 10.4 L (13.0-17.5) gm/dL Hct 29.9 L (39.0-53.0) % RDW 16.7 H (11.5-15.5) % Sodium 135 L (137-145) mmol/L Potassium 3.2 L (3.5-5.1) mmol/L Carbon Dioxide (22-30) mmol/L BUN 3 L (9-20) mg/dL Creatinine (0.66-1.25) mg/dL Glucose (74-99) mg/dL POC Glucose (mg/dL) 62 L (70-110) mg/dL Calcium 8.2 L (8.4-10.2) mg/dL Phosphorus 1.9 L (2.5-4.5) mg/dL Assessment and Plan Assessment: Acute diabetic ketoacidosis, likely secondary to medication noncompliance. Patient has had numerous episodes of DKA, recently admitted on 06/21/2023 for the same. He has already had 6 hospitalizations for DKA so far this year. Severe anion gap metabolic acidosis, secondary to above Recent history of acute pancreatitis, lipase levels improving Severe dehydration Acute kidney injury, prerenal, secondary to above Severe hyperkalemia, improved Hyperphosphatemia Type 1 diabetes mellitus, with poor medication compliance. Acute leukocytosis, likely reactive to DKA Diabetic neuropathy History of major depression Chronic marijuana use Chronic ongoing nicotine dependence Plan: The patient was seen and evaluated Currently stable and on room air Transitioned to Levemir and NovoLog sliding scale Transfer to the regular medical floor Again educated regarding the importance of medication/medical compliance We will continue to follow I have personally seen and examined the patient, performed the documentation and the assessment and plan as written. Number of minutes spent on the visit: 10.
[2023-06-25 11:11] LABS: Glucose,Whole Blood 129 mg/dL (70-110)
[2023-06-25 12:23] VITALS: BMI 17.9
[2023-06-25 16:15] VITALS: BP 131/95; PULSE 86; RESP 16
[2023-06-25 17:23] LABS: Glucose,Whole Blood 168 mg/dL (70-110)
--- NOTE | 2023-06-25 23:58 | DS ---
DISCHARGE SUMMARY CHIEF COMPLAINT: DKA. HISTORY OF PRESENT ILLNESS AND PHYSICAL EXAMINATION: Details of this man's history and physical can be found in the initial workup. LABORATORY STUDIES: While he was in the hospital, he had laboratory studies, details of which can be found in the laboratory section of his chart. COURSE IN THE HOSPITAL: After admission, he was placed on bedrest, started on intravenous fluids in ICU. He was placed on a DKA protocol until his blood sugars came into normal range. At that point, he was awake and alert and was not vomiting and he was gradually doing well. It was felt he could be discharged on the . He will go home on his usual activity, diet, and medication and will be followed up in the office. I had a discussion with the patient about where he was living, how things are going, and how he got to the emergency room. He is apparently living in the basement of his mother's home. Apparently, she finds him semicomatose, called the ambulance and that is how he arrived to the emergency room. We talked at some length about the fact that this was potentially a serious issue for his mother should something happen to him and she would not be able to call for help in time. MMBIANCA / ALDEN: [id number] /
--- NOTE | 2023-06-30 11:50 | CDI ---
Documentation Clarification Form Date: 06/30/2023 11:41:16 AM From: Serina Ingram RN, CCDS Email: [email or web address] Admit Date: 06/23/2023 09:32:00 AM Patient Name: Raul Marquez Visit Number: [id number] Discharge Date: 06/25/2023 06:05:00 PM ATTENTION: The Clinical Documentation Specialists (CDI) and [facility] Coding Staff appreciate your assistance in clarifying documentation. Please respond to the clarification below the line at the bottom and electronically sign. The CDI & [facility] Coding staff will review the response and follow-up if needed. Please note: Queries are made part of the Legal Health Record. If you have any questions, please contact the author of this message via ITS. Dr. Brown Valenzuela Your patient had DKA, tachycardia, leukocytosis and low body temperature. Based on this information and the findings below, is there an additional diagnosis that is clinically appropriate for this patient? History/Risk Factors: medically non-compliant DM - 6 hospital admissions for DKA for 2023. Presents in DKA. Clinical Indicators: H&P: "sinus tachycardia. DKA." 06/24 Critical care consult: "Amylase and lipase are elevated at 168 and 1209 respectively. Acute diabetic ketoacidosis, likely secondary to medication noncompliance. Severe anion gap metabolic acidosis. Recent history of acute pancreatitis, lipase levels improving. Severe dehydration. Acute kidney injury." 06/23 Vital signs: Temp 91-91.5-91.2-98.4; HR 112-102-118; RR 28-24-13; BP 83/46- 129/91 06/23-06/25 WBC: 25.4-17.7-7.7; Cr 1.33-1.25-0.73-0.76 06/23 Glucose 609; Lipase 1209 06/23 VBG: pH: 6.84 pCO2: 10 HCO3: 2 06/23 Anion gap: 20-17 06/23 UA: 4+ ketones 06/23 Acetone positive Treatment: ICU monitoring; Insulin drip titrated 06/23-06/24; 0.9 NS 2L IV bolus on 06/23 then 200mL/hr 06/23-06/24; IV Sodium bicarbonate 50mL x1 on 06/23; Levemir 30 units SC on 06/24 Is there an additional diagnosis that is clinically appropriate for this patient? [ ] SIRS, due to DKA, without acute organ dysfunction [ ] SIRS, due to DKA, with SHANTEL and pancreatitis [ ] Other, please specify [ ] Unable to determine SIRS Criteria: 2 or more of the following may indicate SIRS -Temperature < 96.8F(36C) or > 101.0F (38.3C) -Heart Rate > 90 bpm -Respiratory Rate > 20 breaths/min or PaCO2 < 32 mmHg -White Blood Cell Count > 12,000 or < 4,000 cells/mm3 or > 10% bands MTDD
== END 2023-06-25 18:05 | disposition home or self-care (01) | DRG 420 ==
LOC: EC 08:39 → 2SICU 09:32
PROVIDERS: ADMIT Family Medicine; ATTEND Family Medicine
DX: E10.10 Type 1 diabetes mellitus with ketoacidosis without coma (principal); K85.90 Acute pancreatitis without necrosis or infection, unspecified; N17.9 Acute kidney failure, unspecified; E83.39 Other disorders of phosphorus metabolism; F32.9 Major depressive disorder, single episode, unspecified; E10.43 Type 1 diabetes mellitus with diabetic autonomic (poly)neuropathy; J45.909 Unspecified asthma, uncomplicated; Z79.4 Long term (current) use of insulin; K31.84 Gastroparesis; F12.90 Cannabis use, unspecified, uncomplicated; F41.9 Anxiety disorder, unspecified; E86.0 Dehydration; E87.5 Hyperkalemia; L30.9 Dermatitis, unspecified; Z91.148 Patient's other noncompliance with medication regimen for other reason; Z91.199 Patient's noncompliance with other medical treatment and regimen due to unspecified reason; Z79.899 Other long term (current) drug therapy; Z87.891 Personal history of nicotine dependence
CPT/HCPCS: 36415; 80048; 80051; 80053; 80061; 81001; 82009; 82150; 82565; 82803; 82947; 83605; 83690; 83735; 84100; 84520; 85025; 85027; 93005; 96361; 96365; 96366; 96375; 99291

== ENCOUNTER 2023-06-28 03:39 | Inpatient (IN) | payer OTHER ==
[2023-06-28] MEDS: SODIUM CHLORIDE 0.9% 1,000 ML IV SCH ×2 (04:02→06:23)
[2023-06-28 04:03] LABS: Glucose,Whole Blood >600 mg/dL (70-110)
[2023-06-28] MEDS: INSULIN REGULAR BOLUS (FROM DRIP BAG) IV ONE (04:04)
[2023-06-28] MEDS: INSULIN REGULAR 100 UNIT in SODIUM CHLORIDE 0.9% 100 ML IV SCH (04:05)
[2023-06-28 04:15] LABS: VBG PH 6.83 (7.31-7.41)
[2023-06-28 04:27] LABS: ALT 37 U/L (4-49); AST 26 U/L (17-59); African American GFR (CKD) 47 (>60 ml/min/1.73 sqM); Albumin 4.4 g/dL (3.5-5.0); Alkaline Phosphatase 139 U/L (38-126); Blood Urea Nitrogen 33 mg/dL (9-20); Calcium 9.4 mg/dL (8.4-10.2); Chloride 95 mmol/L (98-107); Non-African American GFR(CKD) 41 (>60 ml/min/1.73 sqM); Sodium 135 mmol/L (137-145); Total Bilirubin 0.3 mg/dL (0.2-1.3); Total Protein 6.5 g/dL (6.3-8.2)
[2023-06-28 04:35] LABS: Carbon Dioxide <5 mmol/L (22-30); Phosphorus 11.4 mg/dL (2.5-4.5); Potassium 6.6 mmol/L (3.5-5.1)
[2023-06-28 04:37] LABS: Glucose 945 mg/dL (74-99)
[2023-06-28 05:08] LABS: Glucose,Whole Blood >600 mg/dL (70-110)
[2023-06-28 06:02] LABS: Glucose,Whole Blood >600 mg/dL (70-110)
--- NOTE | 2023-06-28 06:58 | P.CNPUL ---
History of Present Illness Consult date: 06/28/23 Requesting physician: Brown Valenzuela Reason for consult: other Chief complaint: Diabetic ketoacidosis. History of present illness: Pulmonary consult dated June 28, 2023. 27-year-old male with a history of chronic diabetes, and multiple admissions to this hospital, for diabetic ketoacidosis. The patient was recently discharged from the hospital, with an episode of DKA. The patient apparently has had 38 admissions to the hospital for DKA, in 2022, and I believe this is his seventh admission this year, 2023, for DKA. The patient was recently discharged on June 25, 2023. The patient typically presents with severe dehydration, nausea, vomiting, hyperglycemia, and metabolic acidosis. Preliminary lab data on this admission, shows a venous blood gas with a CO2 of 11, and a pH of 6.83. Sodium 135, potassium 6.6, chloride 75, and CO2 less than 5. BUN is 33 with a creatinine of 2.18. Glucose is 945. Lactic acid is 5.3. Phosphorus is 11.4. Acetone was positive. The patient was seen in the emergency department, ER trauma 2. He is on an insulin drip at 6.86 units/h, room air, and saline at 200 cc an hour. The patient has rapid deep respirations, secondary to his severe metabolic acidosis. Review of Systems REVIEW OF SYSTEMS: CONSTITUTIONAL: Weakness. NEUROLOGIC: [ Negative.] HEENT: [ Negative.] CARDIAC: [Negative.] PULMONARY: [Negative.] GI: Severe nausea and vomiting. : [Negative.] RHEUMATOLOGIC: [ Negative.] IMMUNOLOGIC: [ Negative.] ENDOCRINE: [Negative. ] DERMATOLOGIC: [Negative.] Past Medical History Past Medical History: Asthma, Diabetes Mellitus, Neurologic Disorder, Skin Disorder Additional Past Medical History / Comment(s): IDDM type I, neuropathy bilateral feet, DKA, eczema. History of Any Multi-Drug Resistant Organisms: None Reported Past Surgical History: Adenoidectomy Additional Past Surgical History / Comment(s): 2003 Recent EGD- gastritis Past Anesthesia/Blood Transfusion Reactions: No Reported Reaction Past Psychological History: Anxiety, Depression Smoking Status: Former smoker Past Alcohol Use History: None Reported Past Drug Use History: Marijuana - Past Family History Mother Family Medical History: CVA/TIA Additional Family Medical History / Comment(s): TIA Father Family Medical History: Hyperlipidemia, Hypertension Additional Family Medical History / Comment(s): . Medications and Allergies Home Medications Medication Instructions Recorded Confirmed Type Insulin Detemir (Levemir) [Levemir] 30 unit SQ HS 03/07/23 06/23/23 History Ergocalciferol [Vitamin D2 (1250 1,250 mcg PO Q30D 04/29/23 06/23/23 History Mcg = 92637 Iu)] Famotidine [Pepcid] 20 mg PO BID 04/29/23 06/23/23 History Gabapentin 600 mg PO TID 04/29/23 06/23/23 History Insulin Lispro [Insulin Lispro 7 units SQ AC-TID 04/29/23 06/23/23 History Kwikpen U-100] Losartan Potassium 50 mg PO DAILY 04/29/23 06/23/23 History Mirtazapine 7.5 mg PO HS 04/29/23 06/23/23 History Allergies Allergy/AdvReac Type Severity Reaction Status Date / Time No Known Allergies Allergy Verified 06/28/23 03:48 Physical Exam Osteopathic Statement: *. No significant issues noted on an osteopathic structural exam other than those noted in the History and Physical/Consult. Vitals: Vital Signs Temp Pulse Resp BP Pulse Ox 06/28/23 06:00 106 H 26 H 89/56 96 06/28/23 05:08 104 H 30 H 84/61 95 06/28/23 03:40 94.3 F L 109 H 34 H 98/62 91 L Intake and Output 06/27/23 06/27/23 06/28/23 14:59 22:59 06:59 Other: Weight 68.039 kg Lethargic, deep, rapid durations, with saturations of 96% on room air. HEENT examination is grossly unremarkable. Mucous membranes are dry. Neck supple. Full range of motion. No adenopathy thyromegaly or neck vein distention. Cardiovascular examination reveals regular rhythm rate. S1-S2 normal. No S3 or S4. No discernible murmur noted. Heart rate is 106 bpm. Lungs reveal clear breath sounds. Breath sounds are equal bilaterally. No adventitious lung sounds including wheezes rhonchi or crackles. Abdomen soft with bowel sounds. No masses or tenderness. Extremities are intact. No cyanosis clubbing or edema. Skin is without rash or lesion. Neurologic examination is brief but nonfocal. Results - Laboratory Findings CBC and BMP: 06/28/23 04:00 Abnormal lab findings: Abnormal Labs 06/28/23 06/28/23 06/28/23 04:00 04:00 04:00 VBG pH 6.83 L* VBG pCO2 11 L* VBG HCO3 2 L* Sodium 135 L Potassium 6.6 H* Chloride 95 L Carbon Dioxide <5 L* BUN 33 H Creatinine 2.18 H Glucose 945 H* POC Glucose (mg/dL) Plasma Lactic Acid Len 5.3 H* Phosphorus 11.4 H* Alkaline Phosphatase 139 H 06/28/23 06/28/23 06/28/23 04:01 05:07 06:00 VBG pH VBG pCO2 VBG HCO3 Sodium Potassium Chloride Carbon Dioxide BUN Creatinine Glucose POC Glucose (mg/dL) >600 H >600 H >600 H Plasma Lactic Acid Len Phosphorus Alkaline Phosphatase Assessment and Plan Assessment: Acute diabetic ketoacidosis. Anion gap metabolic acidosis. Hyperkalemia. Severe nausea, vomiting, and dehydration. Medication noncompliance. History of acute pancreatitis. Acute kidney injury/prerenal azotemia. Hyperphosphatemia. Diabetic neuropathy. Chronic marijuana use. History of depression. Chronic and ongoing nicotine dependence. Plan: Plan dated June 28, 2023. 27-year-old male with a history of multiple admissions to this hospital, with diabetic ketoacidosis, secondary to medical noncompliance. The patient has typical findings of diabetic ketoacidosis, and has severe metabolic acidosis, anion gap. In addition, the patient has severe hyperkalemia, and hyperphosphatemia. The patient has severe dehydration from nausea and vomiting. Labs, x-rays, and medications are reviewed. The patient will likely need admission, in the intensive care unit. The patient has had 38 admissions to this hospital, for DKA, 2022, and this is his seventh admission thus far in 2023. He was just recently discharged on June 25, 2023. His overall prognosis remains poor. Time with Patient: Greater than 30
[2023-06-28 07:05] LABS: Glucose,Whole Blood >600 mg/dL (70-110)
[2023-06-28 07:11] LABS: HCT 42.2 % (39.0-53.0); HGB 11.2 gm/dL (13.0-17.5); Hypochromasia Marked; MCH 28.4 pg (25.0-35.0); MCHC 26.6 g/dL (31.0-37.0); MCV 106.7 fL (80.0-100.0); Macrocytosis Marked; Mean Platelet Volume 9.6; Platelet Count 604 k/uL (150-450); RBC 3.96 m/uL (4.30-5.90); WBC 40.3 k/uL (3.8-10.6)
--- NOTE | 2023-06-28 07:15 | ED ---
Nausea/Vomiting/Diarrhea HPI - General Chief complaint: Nausea/Vomiting/Diarrhea Stated complaint: Hyperglycemic Time Seen by Provider: 06/28/23 03:40 Source: EMS Mode of arrival: EMS Limitations: altered mental status - History of Present Illness Initial comments: This patient is a 27-year-old man with history of diabetes who is brought to have evaluation by EMS. EMS reports they were called to the scene by patient's mother who told him that he had been having repeated episodes of vomiting. She was concerned he was in DKA. Patient reportedly had been given insulin the previous day and she was not sure when his last dose was. Patient not able to provide any history, appears delirious. MD complaint: nausea, vomiting, abdominal pain Onset/Timin -: days(s) Associated Abdominal Pain: Yes Consistency: constant Improves with: none Worsens with: none Associated Symptoms: nausea/vomiting - Related Data Home Medications Medication Instructions Recorded Confirmed Insulin Detemir (Levemir) [Levemir] 30 unit SQ HS 03/07/23 06/28/23 Ergocalciferol [Vitamin D2 (1250 1,250 mcg PO Q30D 04/29/23 06/28/23 Mcg = 56033 Iu)] Famotidine [Pepcid] 20 mg PO BID 04/29/23 06/28/23 Gabapentin 600 mg PO TID 04/29/23 06/28/23 Insulin Lispro [Insulin Lispro 7 units SQ AC-TID 04/29/23 06/28/23 Kwikpen U-100] Losartan Potassium 50 mg PO DAILY 04/29/23 06/28/23 Mirtazapine 7.5 mg PO HS 04/29/23 06/28/23 Allergies Allergy/AdvReac Type Severity Reaction Status Date / Time No Known Allergies Allergy Verified 06/28/23 10:21 Review of Systems ROS Statement: Those systems with pertinent positive or pertinent negative responses have been documented in the HPI. ROS Other: All systems not noted in ROS Statement are negative. Limitations: ROS unobtainable due to patients medical condition Past Medical History Past Medical History: Asthma, Diabetes Mellitus, Neurologic Disorder, Skin Disorder Additional Past Medical History / Comment(s): IDDM type I, neuropathy bilateral feet, DKA, eczema. History of Any Multi-Drug Resistant Organisms: None Reported Past Surgical History: Adenoidectomy Additional Past Surgical History / Comment(s): 2003 Recent EGD- gastritis Past Anesthesia/Blood Transfusion Reactions: No Reported Reaction Past Psychological History: Anxiety, Depression Smoking Status: Former smoker Past Alcohol Use History: None Reported Past Drug Use History: Marijuana - Past Family History Mother Family Medical History: CVA/TIA Additional Family Medical History / Comment(s): TIA Father Family Medical History: Hyperlipidemia, Hypertension Additional Family Medical History / Comment(s): . General Exam General appearance: alert, in distress Head exam: Present: atraumatic, normocephalic Eye exam: Present: normal appearance. Absent: scleral icterus, conjunctival i njection ENT exam: Present: mucous membranes dry Neck exam: Present: normal inspection, full ROM Respiratory exam: Present: respiratory distress, rhonchi, other (Kussmaul respirations). Absent: wheezes, rales, stridor, accessory muscle use Cardiovascular Exam: Present: normal rhythm, tachycardia, systolic murmur. Absent: diastolic murmur, rubs, gallop GI/Abdominal exam: Present: soft, tenderness, guarding. Absent: distended, rebound, rigid, mass, pulsatile mass, hernia Extremities exam: Present: normal inspection, normal capillary refill. Absent: pedal edema, calf tenderness Back exam: Present: normal inspection. Absent: CVA tenderness (R), CVA tenderness (L) Neurological exam: Present: altered. Absent: motor sensory deficit Skin exam: Present: warm, dry, intact, normal color. Absent: rash Course Vital Signs 06/28/23 06/28/23 06/28/23 03:40 05:08 06:00 Temperature 94.3 F L Pulse Rate 109 H 104 H 106 H Respiratory 34 H 30 H 26 H Rate Blood Pressure 98/62 84/61 89/56 O2 Sat by Pulse 91 L 95 96 Oximetry 06/28/23 06/28/23 06/28/23 07:30 07:45 08:03 Temperature 97.7 F Pulse Rate 110 H 110 H 113 H Respiratory 24 24 28 H Rate Blood Pressure 102/64 100/54 110/53 O2 Sat by Pulse 95 95 96 Oximetry 06/28/23 06/28/23 06/28/23 08:45 09:15 09:45 Temperature Pulse Rate 118 H 116 H 107 H Respiratory 26 H 28 H 16 Rate Blood Pressure 105/56 100/70 108/83 O2 Sat by Pulse 95 96 95 Oximetry 06/28/23 06/28/23 06/28/23 10:00 10:15 10:30 Temperature 97.6 F Pulse Rate 120 H 123 H 112 H Respiratory 22 24 18 Rate Blood Pressure 107/77 111/84 130/84 O2 Sat by Pulse 98 97 97 Oximetry 06/28/23 06/28/23 06/28/23 10:45 11:02 11:15 Temperature Pulse Rate 110 H 110 H 112 H Respiratory 18 14 16 Rate Blood Pressure 107/74 108/78 105/74 O2 Sat by Pulse 96 98 98 Oximetry 06/28/23 06/28/23 06/28/23 11:30 11:45 12:00 Temperature 97.7 F Pulse Rate 110 H 11 L 111 H Respiratory 17 18 16 Rate Blood Pressure 106/73 120/80 107/69 O2 Sat by Pulse 96 97 98 Oximetry Medical Decision Making - Medical Decision Making Patient is a 27-year-old man with diabetes brought to have evaluation for persistent vomiting. The patient is well-known to this department and appears in DKA on arrival. Fluids and insulin are started. Labs confirm patient in DKA. Patient is admitted with critical care consultation. Was pt. sent in by a medical professional or institution (, PA, TRIPLE VALVE MECHANIC, urgent care, hospital, or shelter...) When possible be specific @ -[No] Did you speak to anyone other than the patient for history (EMS, parent, family, police, friend...)? What history was obtained from this source @ -[EMS did give history Did you review nursing and triage notes (agree or disagree)? Why? @ -[I reviewed and agree with nursing and triage notes] Were old charts reviewed (outside hosp., previous admission, EMS record, old EKG, old radiological studies, urgent care reports/EKG's, shelter records)? Report findings @ -[No old charts were reviewed] Differential Diagnosis (chest pain, altered mental status, abdominal pain women, abdominal pain men, vaginal bleeding, weakness, fever, dyspnea, syncope, headache, dizziness, GI bleed, back pain, seizure, CVA, palpatations, mental health, musculoskeletal)? @ -[Differential Altered Mental Status: Hypoglycemia, DKA, hypercapnia, ETOH, overdose, CO poisoning, trauma, myxedema coma, HTN encephalopathy, infection, encephalitis, psychosis, intercranial hemorrhage, hepatic encephalopathy, meningitis, CVA, this is not meant to be an all-inclusive list EKG interpreted by me (3pts min.). @ -[I interpreted as above] X-rays interpreted by me (1pt min.). @ -[None done] CT interpreted by me (1pt min.). @ -[None done] U/S interpreted by me (1pt. min.). @ -[None done] What testing was considered but not performed or refused? (CT, X-rays, U/S, la bs)? Why? @ -[None] What meds were considered but not given or refused? Why? @ -[None] Did you discuss the management of the patient with other professionals (professionals i.e. , PA, TRIPLE VALVE MECHANIC, lab, RT, psych nurse, sexual assault social worker, drapery cutter, teacher, search and rescue officer, outsole caser)? Give summary @ -[Case discussed with the patient's primary physician for admission and also the store worker for critical care. Treatment recommendations are incorporated. Was smoking cessation discussed for >3mins.? @ -[No] Was critical care preformed (if so, how long)? @ -[Yes 35 minutes Were there social determinants of health that impacted care today? How? (Homelessness, low income, unemployed, alcoholism, drug addiction, transportation, low edu. Level, literacy, decrease access to med. care, senior living, rehab)? @ -[No] Was there de-escalation of care discussed even if they declined (Discuss DNR or withdrawal of care, Hospice)? DNR status @ -[No] What co-morbidities impacted this encounter? (DM, HTN, Smoking, COPD, CAD, Cancer, CVA, ARF, Chemo, Hep., AIDS, mental health diagnosis, sleep apnea, morbid obesity)? @ -[History of diabetes Was patient admitted / discharged? Hospital course, mention meds given and route, prescriptions, significant lab abnormalities, going to OR and other pertinent info. @ -[See above Undiagnosed new problem with uncertain prognosis? @ -[No] Drug Therapy requiring intensive monitoring for toxicity (Heparin, Nitro, Insulin, Cardizem)? @ -[Insulin infusion Were any procedures done? @ -[No] Diagnosis/symptom? @ -[Acute diabetic ketoacidosis Acute, or Chronic, or Acute on Chronic? @ -[Acute Uncomplicated (without systemic symptoms) or Complicated (systemic symptoms)? @ -[Complicated by altered mental status Side effects of treatment? @ -[No] Exacerbation, Progression, or Severe Exacerbation? @ -[No] Poses a threat to life or bodily function? How? (Chest pain, [place], [place], pneumonia, PE, COPD, DKA, ARF, appy, cholecystitis, CVA, Diverticulitis, Homicidal, Suicidal, threat to staff... and all critical care pts) @ -[Yes, if not treated diabetic ketoacidosis will progress to organ failure and - Lab Data Result diagrams: 06/28/23 12:13 06/29/23 09:04 Lab Results 06/28/23 06/28/23 06/28/23 Range/Units 04:00 04:00 04:00 WBC (3.8-10.6) k/uL RBC (4.30-5.90) m/uL Hgb (13.0-17.5) gm/dL Hct (39.0-53.0) % MCV (80.0-100.0) fL MCH (25.0-35.0) pg MCHC (31.0-37.0) g/dL RDW (11.5-15.5) % Plt Count (150-450) k/uL MPV Neutrophils % (Manual) % Band Neuts % (Manual) % Lymphocytes % (Manual) % Monocytes % (Manual) % Metamyelocytes % % Myelocytes % % Neutrophils # (Manual) (1.3-7.7) k/uL Lymphocytes # (Manual) (1.0-4.8) k/uL Monocytes # (Manual) (0-1.0) k/uL Metamyelocytes # (Man) (0) k/uL Myelocytes # (Manual) (0) k/uL Nucleated RBCs (0-0) /100 WBC Manual Slide Review Polychromasia Hypochromasia Hypochromasia (manual) Anisocytosis (manual) Macrocytosis VBG pH 6.83 L* (7.31-7.41) VBG pCO2 11 L* (37-51) mmHg VBG HCO3 2 L* (24-28) mmol/L Sodium 135 L (137-145) mmol/L Potassium 6.6 H* (3.5-5.1) mmol/L Chloride 95 L (98-107) mmol/L Carbon Dioxide <5 L* (22-30) mmol/L Anion Gap mmol/L BUN 33 H (9-20) mg/dL Creatinine 2.18 H (0.66-1.25) mg/dL Est GFR (CKD-EPI)AfAm 47 (>60 ml/min/1.73 sqM) Est GFR (CKD-EPI)NonAf 41 (>60 ml/min/1.73 sqM) Glucose 945 H* (74-99) mg/dL POC Glucose (mg/dL) (70-110) mg/dL POC Glu Scout ID Lactic Ac Sepsis Rflx Plasma Lactic Acid Len 5.3 H* (0.7-2.0) mmol/L Calcium 9.4 (8.4-10.2) mg/dL Phosphorus 11.4 H* (2.5-4.5) mg/dL Total Bilirubin 0.3 (0.2-1.3) mg/dL AST 26 (17-59) U/L ALT 37 (4-49) U/L Alkaline Phosphatase 139 H (38-126) U/L Total Protein 6.5 (6.3-8.2) g/dL Albumin 4.4 (3.5-5.0) g/dL Acetone, Qual Positive (Negative) 06/28/23 06/28/23 06/28/23 Range/Units 04:00 04:01 04:28 WBC 40.3 H (3.8-10.6) k/uL RBC 3.96 L (4.30-5.90) m/uL Hgb 11.2 L (13.0-17.5) gm/dL Hct 42.2 (39.0-53.0) % MCV 106.7 H D (80.0-100.0) fL MCH 28.4 (25.0-35.0) pg MCHC 26.6 L (31.0-37.0) g/dL RDW 16.0 H (11.5-15.5) % Plt Count 604 H D (150-450) k/uL MPV 9.6 Neutrophils % (Manual) 74 % Band Neuts % (Manual) 1 % Lymphocytes % (Manual) 15 % Monocytes % (Manual) 6 % Metamyelocytes % 2 % Myelocytes % 4 % Neutrophils # (Manual) 30.20 H (1.3-7.7) k/uL Lymphocytes # (Manual) 6.05 H (1.0-4.8) k/uL Monocytes # (Manual) 2.42 H (0-1.0) k/uL Metamyelocytes # (Man) 0.81 H (0) k/uL Myelocytes # (Manual) 1.61 H (0) k/uL Nucleated RBCs 0 (0-0) /100 WBC Manual Slide Review Performed Polychromasia Present Hypochromasia Marked Hypochromasia (manual) Present Anisocytosis (manual) Present Macrocytosis Marked A VBG pH (7.31-7.41) VBG pCO2 (37-51) mmHg VBG HCO3 (24-28) mmol/L Sodium (137-145) mmol/L Potassium (3.5-5.1) mmol/L Chloride (98-107) mmol/L Carbon Dioxide (22-30) mmol/L Anion Gap mmol/L BUN (9-20) mg/dL Creatinine (0.66-1.25) mg/dL Est GFR (CKD-EPI)AfAm (>60 ml/min/1.73 sqM) Est GFR (CKD-EPI)NonAf (>60 ml/min/1.73 sqM) Glucose (74-99) mg/dL POC Glucose (mg/dL) >600 H (70-110) mg/dL POC Glu Scout ID Colleen Dumont Lactic Ac Sepsis Rflx Y Plasma Lactic Acid Len (0.7-2.0) mmol/L Calcium (8.4-10.2) mg/dL Phosphorus (2.5-4.5) mg/dL Total Bilirubin (0.2-1.3) mg/dL AST (17-59) U/L ALT (4-49) U/L Alkaline Phosphatase (38-126) U/L Total Protein (6.3-8.2) g/dL Albumin (3.5-5.0) g/dL Acetone, Qual (Negative) 06/28/23 06/28/23 Range/Units 05:07 06:00 WBC (3.8-10.6) k/uL RBC (4.30-5.90) m/uL Hgb (13.0-17.5) gm/dL Hct (39.0-53.0) % MCV (80.0-100.0) fL MCH (25.0-35.0) pg MCHC (31.0-37.0) g/dL RDW (11.5-15.5) % Plt Count (150-450) k/uL MPV Neutrophils % (Manual) % Band Neuts % (Manual) % Lymphocytes % (Manual) % Monocytes % (Manual) % Metamyelocytes % % Myelocytes % % Neutrophils # (Manual) (1.3-7.7) k/uL Lymphocytes # (Manual) (1.0-4.8) k/uL Monocytes # (Manual) (0-1.0) k/uL Metamyelocytes # (Man) (0) k/uL Myelocytes # (Manual) (0) k/uL Nucleated RBCs (0-0) /100 WBC Manual Slide Review Polychromasia Hypochromasia Hypochromasia (manual) Anisocytosis (manual) Macrocytosis VBG pH (7.31-7.41) VBG pCO2 (37-51) mmHg VBG HCO3 (24-28) mmol/L Sodium (137-145) mmol/L Potassium (3.5-5.1) mmol/L Chloride (98-107) mmol/L Carbon Dioxide (22-30) mmol/L Anion Gap mmol/L BUN (9-20) mg/dL Creatinine (0.66-1.25) mg/dL Est GFR (CKD-EPI)AfAm (>60 ml/min/1.73 sqM) Est GFR (CKD-EPI)NonAf (>60 ml/min/1.73 sqM) Glucose (74-99) mg/dL POC Glucose (mg/dL) >600 H >600 H (70-110) mg/dL POC Glu Scout ID Tim, Colleen Redmanel, Colleen Lactic Ac Sepsis Rflx Plasma Lactic Acid Len (0.7-2.0) mmol/L Calcium (8.4-10.2) mg/dL Phosphorus (2.5-4.5) mg/dL Total Bilirubin (0.2-1.3) mg/dL AST (17-59) U/L ALT (4-49) U/L Alkaline Phosphatase (38-126) U/L Total Protein (6.3-8.2) g/dL Albumin (3.5-5.0) g/dL Acetone, Qual (Negative) - EKG Data -: EKG Interpreted by Me EKG shows normal: sinus rhythm, axis (Normal), intervals (Normal) Rate: tachycardia (Rate 104 bpm) Interpretation: other (Peaked T waves suggestive of hyperkalemia) Disposition Clinical Impression: DKA (diabetic ketoacidoses) Disposition: ADMITTED IP TO THIS HOSP
[2023-06-28 07:48] LABS: Band Neutrophils % 1 %; Lymphocytes # (M) 6.05 k/uL (1.0-4.8); Metamyelocytes # (M) 0.81 k/uL (0); Metamyelocytes % 2 %; Monocytes # (M) 2.42 k/uL (0-1.0); Myelocytes # (M) 1.61 k/uL (0); Myelocytes % 4 %; Neutrophils % (M) 74 %; Nucleated Red Blood Cells 0 /100 WBC (0-0); Total Cells Counted 200
[2023-06-28 07:49] LABS: Anisocytosis (M) Present; Hypochromasia (M) Present; Polychromasia Present
[2023-06-28 08:05] LABS: Glucose,Whole Blood >600 mg/dL (70-110)
[2023-06-28 09:14] LABS: Glucose,Whole Blood 582 mg/dL (70-110)
[2023-06-28 10:31] LABS: Glucose,Whole Blood 417 mg/dL (70-110)
[2023-06-28 11:02] LABS: Glucose,Whole Blood 312 mg/dL (70-110)
[2023-06-28 12:07] LABS: Glucose,Whole Blood 248 mg/dL (70-110)
[2023-06-28] MEDS ORDERED: [UNRECOGNIZED DRUG - OTHER] SQ SCH (12:30)
[2023-06-28] MEDS ORDERED: INSULN SQ SCH (12:30)
[2023-06-28] MEDS ORDERED: INSULIN LISPRO 100 UNIT/ML SQ SCH (12:30)
[2023-06-28 12:47] LABS: Anisocytosis Slight; HCT 32.4 % (39.0-53.0); HGB 10.3 gm/dL (13.0-17.5); MCH 27.8 pg (25.0-35.0); MCHC 31.9 g/dL (31.0-37.0); MCV 87.2 fL (80.0-100.0); Mean Platelet Volume 7.3; Platelet Count 528 k/uL (150-450); RBC 3.71 m/uL (4.30-5.90); RDW 16.7 % (11.5-15.5); WBC 33.3 k/uL (3.8-10.6)
[2023-06-28 13:02] LABS: Glucose,Whole Blood 188 mg/dL (70-110)
[2023-06-28] MEDS: D5-0.45% NACL WITH KCL 20MEQ/L 1,000 ML IV SCH (13:17)
[2023-06-28 13:51] LABS: Anisocytosis (M) Present; Band Neutrophils % 2 %; Lymphocytes # (M) 4.66 k/uL (1.0-4.8); Metamyelocytes # (M) 0.33 k/uL (0); Metamyelocytes % 1 %; Monocytes # (M) 0.67 k/uL (0-1.0); Myelocytes # (M) 0.33 k/uL (0); Myelocytes % 1 %; Neutrophils % (M) 81 %; Nucleated Red Blood Cells 0 /100 WBC (0-0); Total Cells Counted 200
[2023-06-28 14:05] LABS: Glucose,Whole Blood 171 mg/dL (70-110)
[2023-06-28 15:02] LABS: Glucose,Whole Blood 144 mg/dL (70-110)
[2023-06-28 15:20] LABS: African American GFR (CKD) >90 (>60 ml/min/1.73 sqM); Anion Gap 11 mmol/L; Blood Urea Nitrogen 33 mg/dL (9-20); Calcium 8.8 mg/dL (8.4-10.2); Carbon Dioxide 20 mmol/L (22-30); Chloride 111 mmol/L (98-107); Glucose 161 mg/dL (74-99); Non-African American GFR(CKD) >90 (>60 ml/min/1.73 sqM); Phosphorus 2.2 mg/dL (2.5-4.5); Potassium 4.8 mmol/L (3.5-5.1); Sodium 142 mmol/L (137-145)
[2023-06-28 16:24] LABS: Glucose,Whole Blood 131 mg/dL (70-110)
[2023-06-28 16:54] LABS: Glucose,Whole Blood 133 mg/dL (70-110)
[2023-06-28 17:58] LABS: Glucose,Whole Blood 132 mg/dL (70-110)
[2023-06-28 18:14] LABS: African American GFR (CKD) >90 (>60 ml/min/1.73 sqM); Anion Gap 9 mmol/L; Blood Urea Nitrogen 29 mg/dL (9-20); Carbon Dioxide 20 mmol/L (22-30); Chloride 105 mmol/L (98-107); Non-African American GFR(CKD) >90 (>60 ml/min/1.73 sqM); Phosphorus 2.8 mg/dL (2.5-4.5); Potassium 4.9 mmol/L (3.5-5.1); Sodium 134 mmol/L (137-145)
[2023-06-28] MEDS ORDERED: DEXTROSE 50% SYRINGE 50 ML IVP PRN ×2 (18:28)
--- NOTE | 2023-06-28 19:55 | HP ---
HISTORY AND PHYSICAL CHIEF COMPLAINT: DKA. HISTORY OF PRESENT ILLNESS: This is another admission for this 27-year-old white male, type 1 insulin-dependent diabetic. He just went home a day or 2 ago. He goes home, does not take his insulin and his mother with whom he lives called the ambulance. He is in with a blood sugar 945. Lactic acid is 7.4. White count is 40,300. Potassium is 6.6. PH is 7.83 with a CO2 of 11 and a bicarb of 2. REVIEW OF SYSTEMS: Unobtainable. PHYSICAL EXAMINATION: VITAL SIGNS: Normal except for tachycardia of 112 beats per minute. GENERAL: He is very lethargic. HEENT: Head, ears, eyes, nose, and mouth were unremarkable. NECK: Supple. CHEST: Clear. CARDIAC: Demonstrates sinus tachycardia. ABDOMEN: Soft and flat. EXTREMITIES: Normal. NEUROLOGICAL: Intact. He is admitted to the hospital with diagnoses once again with, 1. Diabetic ketoacidosis. 2. Hyperkalemia. 3. Leukocytosis. PLAN: 1. Bed rest. 2. IV fluids. 3. ICU management with intensive medicine. MMODL / IJN: [id number] /
[2023-06-28 20:44] LABS: Glucose,Whole Blood 199 mg/dL (70-110)
[2023-06-28] MEDS ORDERED: INSULIN DETEMIR (LEVEMIR) 100 UNIT/ML SYR SQ SCH (21:00)
[2023-06-28] MEDS: FAMOTIDINE 20 MG TAB PO SCH (21:33)
[2023-06-28] MEDS: INSULIN ASPART (NovoLOG) 100 UNIT/ML VIAL SQ SCH (21:33)
[2023-06-28] MEDS: INSULIN DETEMIR (LEVEMIR) 100 UNIT/ML SYR SQ SCH (21:34)
[2023-06-28 23:40] LABS: Glucose,Whole Blood 259 mg/dL (70-110)
[2023-06-29 05:46] LABS: Glucose,Whole Blood 76 mg/dL (70-110)
[2023-06-29] MEDS: INSULIN ASPART (NovoLOG) 100 UNIT/ML VIAL SQ SCH (07:55)
[2023-06-29] MEDS: LOSARTAN 50 MG TAB PO SCH (08:15)
[2023-06-29 10:14] LABS: ALT 29 U/L (4-49); AST 38 U/L (17-59); African American GFR (CKD) >90 (>60 ml/min/1.73 sqM); Albumin 2.8 g/dL (3.5-5.0); Albumin/Globulin Ratio 1.2; Alkaline Phosphatase 65 U/L (38-126); Anion Gap 4 mmol/L; Blood Urea Nitrogen 13 mg/dL (9-20); Calcium 7.8 mg/dL (8.4-10.2); Carbon Dioxide 26 mmol/L (22-30); Chloride 100 mmol/L (98-107); Globulin 2.3 g/dL; Glucose 148 mg/dL (74-99); Non-African American GFR(CKD) >90 (>60 ml/min/1.73 sqM); Potassium 4.5 mmol/L (3.5-5.1); Sodium 130 mmol/L (137-145); Total Bilirubin 0.4 mg/dL (0.2-1.3); Total Protein 5.1 g/dL (6.3-8.2)
[2023-06-29 11:52] LABS: Glucose,Whole Blood 110 mg/dL (70-110)
--- NOTE | 2023-06-29 12:11 | P.PN ---
Subjective Progress Note Date: 06/29/23 27-year-old male with a history of chronic diabetes, and multiple admissions to this hospital, for diabetic ketoacidosis. The patient was recently discharged from the hospital, with an episode of DKA. The patient apparently has had 38 admissions to the hospital for DKA, in 2022, and I believe this is his seventh admission this year, 2023, for DKA. The patient was recently discharged on June 25, 2023. The patient typically presents with severe dehydration, nausea, vomiting, hyperglycemia, and metabolic acidosis. Preliminary lab data on this admission, shows a venous blood gas with a CO2 of 11, and a pH of 6.83. Sodium 135, potassium 6.6, chloride 75, and CO2 less than 5. BUN is 33 with a creatinine of 2.18. Glucose is 945. Lactic acid is 5.3. Phosphorus is 11.4. Acetone was positive. The patient was seen in the emergency department, ER trauma 2. He is on an insulin drip at 6.86 units/h, room air, and saline at 200 cc an hour. The patient has rapid deep respirations, secondary to his severe metabolic acidosis. The patient is seen today June 29, 2023 in follow-up on the regular medical floor. He is awake and alert in no acute distress. Maintaining O2 saturations in the 90s on room air. He has D5 and half-normal saline with 20 of KCl at 50 MLS per hour. Sodium 130. Potassium 4.5. Bicarb 26. Anion gap 4. BUN 13. Creatinine 0.55. Glucose 148. He has been transitioned to his Levemir 30 units at bedtime and a sliding scale AC 3 times daily. Objective - Vital Signs Vital signs: Vital Signs Temp 98.3 F 06/29/23 06:50 Pulse 83 06/29/23 06:50 Resp 18 06/29/23 06:50 BP 115/77 06/29/23 06:50 Pulse Ox 99 06/29/23 06:50 FiO2 Intake & Output 06/28/23 06/29/23 06/29/23 18:59 06:59 18:59 Intake Total 2849.311 9139 Output Total 1400 400 Balance -54.295 1050 Weight 68.039 kg Intake: Intake, IV Titration 1345.705 100 Amount D5-0.45% NaCl with KCl 850 100 20Meq/l 1,000 ml @ 50 mls /hr IV .Q20H YAEL Rx#: [id number] Insulin Regular 100 unit 95.705 In Sodium Chloride 0.9% 100 ml @ 0.1 UNITS/KG/HR 6.868 mls/hr IV .[id number] YAEL Rx#:[id number] Sodium Chloride 0.9% 1, 400 000 ml @ 200 mls/hr IV . Q5H YAEL Rx#:[id number] Oral 1350 Tube Feeding 0 Output: Urine 1400 400 Other: Voiding Method Urinal Urinal # Voids 2 - Exam GENERAL EXAM: Alert, 27-year-old male patient, on room air, comfortable in no apparent distress. HEAD: Normocephalic. EYES: Normal reaction of pupils, equal size. NOSE: Clear with pink turbinates. THROAT: No erythema or exudates. NECK: No masses, no JVD. CHEST: No chest wall deformity. LUNGS: Equal air entry with no crackles, wheeze, rhonchi or dullness. CVS: S1 and S2 normal with no audible murmur, regular rhythm. ABDOMEN: No hepatosplenomegaly, normal bowel sounds, no guarding or rigidity. SPINE: No scoliosis or deformity SKIN: No rashes CENTRAL NERVOUS SYSTEM: No focal deficits, tone is normal in all 4 extremities. EXTREMITIES: There is no peripheral edema. No clubbing, no cyanosis. Peripheral pulses are intact. - Labs CBC & Chem 7: 06/28/23 12:13 06/29/23 09:04 Labs: Abnormal Lab Results - Last 24 Hours (Table) 06/28/23 06/28/23 06/28/23 Range/Units 12:04 12:13 13:00 WBC 33.3 H (3.8-10.6) k/uL RBC 3.71 L (4.30-5.90) m/uL Hgb 10.3 L (13.0-17.5) gm/dL Hct 32.4 L (39.0-53.0) % RDW 16.7 H (11.5-15.5) % Plt Count 528 H (150-450) k/uL Neutrophils # (Manual) 27.60 H (1.3-7.7) k/uL Metamyelocytes # (Man) 0.33 H (0) k/uL Myelocytes # (Manual) 0.33 H (0) k/uL Sodium (137-145) mmol/L Chloride (98-107) mmol/L Carbon Dioxide (22-30) mmol/L BUN (9-20) mg/dL Creatinine (0.66-1.25) mg/dL Glucose (74-99) mg/dL POC Glucose (mg/dL) 248 H 188 H (70-110) mg/dL Plasma Lactic Acid Len (0.7-2.0) mmol/L Calcium (8.4-10.2) mg/dL Phosphorus (2.5-4.5) mg/dL Total Protein (6.3-8.2) g/dL Albumin (3.5-5.0) g/dL 06/28/23 06/28/23 06/28/23 Range/Units 14:01 14:04 14:07 WBC (3.8-10.6) k/uL RBC (4.30-5.90) m/uL Hgb (13.0-17.5) gm/dL Hct (39.0-53.0) % RDW (11.5-15.5) % Plt Count (150-450) k/uL Neutrophils # (Manual) (1.3-7.7) k/uL Metamyelocytes # (Man) (0) k/uL Myelocytes # (Manual) (0) k/uL Sodium (137-145) mmol/L Chloride 111 H (98-107) mmol/L Carbon Dioxide 20 L (22-30) mmol/L BUN 33 H (9-20) mg/dL Creatinine (0.66-1.25) mg/dL Glucose 161 H (74-99) mg/dL POC Glucose (mg/dL) 171 H (70-110) mg/dL Plasma Lactic Acid Len 2.3 H* (0.7-2.0) mmol/L Calcium (8.4-10.2) mg/dL Phosphorus 2.2 L (2.5-4.5) mg/dL Total Protein (6.3-8.2) g/dL Albumin (3.5-5.0) g/dL 06/28/23 06/28/23 06/28/23 Range/Units 15:01 16:22 16:53 WBC (3.8-10.6) k/uL RBC (4.30-5.90) m/uL Hgb (13.0-17.5) gm/dL Hct (39.0-53.0) % RDW (11.5-15.5) % Plt Count (150-450) k/uL Neutrophils # (Manual) (1.3-7.7) k/uL Metamyelocytes # (Man) (0) k/uL Myelocytes # (Manual) (0) k/uL Sodium (137-145) mmol/L Chloride (98-107) mmol/L Carbon Dioxide (22-30) mmol/L BUN (9-20) mg/dL Creatinine (0.66-1.25) mg/dL Glucose (74-99) mg/dL POC Glucose (mg/dL) 144 H 131 H 133 H (70-110) mg/dL Plasma Lactic Acid Len (0.7-2.0) mmol/L Calcium (8.4-10.2) mg/dL Phosphorus (2.5-4.5) mg/dL Total Protein (6.3-8.2) g/dL Albumin (3.5-5.0) g/dL 06/28/23 06/28/23 06/28/23 Range/Units 17:43 17:43 17:57 WBC (3.8-10.6) k/uL RBC (4.30-5.90) m/uL Hgb (13.0-17.5) gm/dL Hct (39.0-53.0) % RDW (11.5-15.5) % Plt Count (150-450) k/uL Neutrophils # (Manual) (1.3-7.7) k/uL Metamyelocytes # (Man) (0) k/uL Myelocytes # (Manual) (0) k/uL Sodium 134 L (137-145) mmol/L Chloride (98-107) mmol/L Carbon Dioxide 20 L (22-30) mmol/L BUN 29 H (9-20) mg/dL Creatinine 0.60 L (0.66-1.25) mg/dL Glucose (74-99) mg/dL POC Glucose (mg/dL) 132 H (70-110) mg/dL Plasma Lactic Acid Len 0.6 L (0.7-2.0) mmol/L Calcium (8.4-10.2) mg/dL Phosphorus (2.5-4.5) mg/dL Total Protein (6.3-8.2) g/dL Albumin (3.5-5.0) g/dL 06/28/23 06/28/23 06/29/23 Range/Units 20:43 23:38 09:04 WBC (3.8-10.6) k/uL RBC (4.30-5.90) m/uL Hgb (13.0-17.5) gm/dL Hct (39.0-53.0) % RDW (11.5-15.5) % Plt Count (150-450) k/uL Neutrophils # (Manual) (1.3-7.7) k/uL Metamyelocytes # (Man) (0) k/uL Myelocytes # (Manual) (0) k/uL Sodium 130 L (137-145) mmol/L Chloride (98-107) mmol/L Carbon Dioxide (22-30) mmol/L BUN (9-20) mg/dL Creatinine 0.55 L (0.66-1.25) mg/dL Glucose 148 H (74-99) mg/dL POC Glucose (mg/dL) 199 H 259 H (70-110) mg/dL Plasma Lactic Acid Len (0.7-2.0) mmol/L Calcium 7.8 L (8.4-10.2) mg/dL Phosphorus (2.5-4.5) mg/dL Total Protein 5.1 L (6.3-8.2) g/dL Albumin 2.8 L (3.5-5.0) g/dL Assessment and Plan Assessment: Acute diabetic ketoacidosis, recovered Anion gap metabolic acidosis, recovered Hyperkalemia, improved Severe nausea, vomiting, and dehydration, recovered Medication noncompliance History of acute pancreatitis Acute kidney injury/prerenal azotemia Hyperphosphatemia Diabetic neuropathy Chronic marijuana use History of depression Chronic and ongoing nicotine dependence Plan: The patient was seen and evaluated Labs and medications reviewed Continue Levemir, NovoLog sliding scale Continue to monitor glucose level Again educated regarding the importance of complete medical/medicine compliance I have personally seen and examined the patient, performed the documentation and the assessment and plan as written. Number of minutes spent on the visit: 10.
[2023-06-29 16:21] LABS: Glucose,Whole Blood 182 mg/dL (70-110)
[2023-06-29 20:29] LABS: Glucose,Whole Blood 231 mg/dL (70-110)
--- NOTE | 2023-06-29 22:52 | PN ---
PROGRESS NOTE DATE OF SERVICE: 06/29/2023 CHIEF COMPLAINT: DKA. HISTORY OF PRESENT ILLNESS: This gentleman is still quite lethargic. Gap is closed. Blood sugars are improved. PHYSICAL EXAMINATION: GENERAL: He remains lethargic. CHEST: Clear. CARDIAC: Normal. ABDOMEN: Soft. IMPRESSION: Diabetic ketoacidosis. PLAN: Continue with IV fluids and reassess regarding discharge tomorrow. MMODL / IJN: [id number] /
[2023-06-30 06:19] LABS: Glucose,Whole Blood 68 mg/dL (70-110)
[2023-06-30 06:44] LABS: Glucose,Whole Blood 70 mg/dL (70-110)
[2023-06-30 08:49] VITALS: BP 117/75; PULSE 99; RESP 18; TEMP 98.3
--- NOTE | 2023-06-30 20:13 | DS ---
DISCHARGE SUMMARY CHIEF COMPLAINT: Diabetic ketoacidosis. HISTORY OF PRESENT ILLNESS AND PHYSICAL EXAMINATION: Details of this man's history and physical can be found in the initial workup. LABORATORY STUDIES: While he was in the hospital, he had laboratory studies, details of which can be found in the laboratory section of his chart. COURSE IN THE HOSPITAL: After admission, he was placed on bedrest, started intravenous fluids, and DKA protocol. Blood sugars came down and his gap closed. He is doing well, although he remains slightly weak, but his numbers are good and it was felt that he could go home on the . He will go home on his usual activity, diet, medication if he will take them. FINAL DIAGNOSES: 1. Diabetic ketoacidosis. 2. Dehydration. 3. Gastroparesis. 4. Diabetic neuropathy. 5. Noncontrolled type 1 insulin-dependent diabetes mellitus due to noncompliance. MMODL / IJN: [id number] /
== END 2023-06-30 11:24 | disposition home or self-care (01) | DRG 420 ==
LOC: EC 03:39 → 2SICU 06:07 → 4SSUR 06-29 02:01
PROVIDERS: ADMIT Family Medicine; ATTEND Family Medicine
DX: E10.10 Type 1 diabetes mellitus with ketoacidosis without coma (principal); E10.43 Type 1 diabetes mellitus with diabetic autonomic (poly)neuropathy; E83.39 Other disorders of phosphorus metabolism; E86.0 Dehydration; E87.5 Hyperkalemia; E10.65 Type 1 diabetes mellitus with hyperglycemia; F17.200 Nicotine dependence, unspecified, uncomplicated; J45.909 Unspecified asthma, uncomplicated; T38.3X6A Underdosing of insulin and oral hypoglycemic [antidiabetic] drugs, initial encounter; K31.84 Gastroparesis; N17.9 Acute kidney failure, unspecified; Z79.4 Long term (current) use of insulin; Z79.899 Other long term (current) drug therapy; Z82.49 Family history of ischemic heart disease and other diseases of the circulatory system; Z91.199 Patient's noncompliance with other medical treatment and regimen due to unspecified reason; Z91.128 Patient's intentional underdosing of medication regimen for other reason; Z28.310 Unvaccinated for COVID-19
CPT/HCPCS: 36415; 51702; 80048; 80051; 80053; 82009; 82565; 82803; 83605; 83880; 84100; 84520; 85025; 93005; 96360; 96361; 99291

== ENCOUNTER 2023-07-09 14:04 | Inpatient (IN) | payer OTHER ==
[2023-07-09] MEDS: SODIUM CHLORIDE 0.9% 2,000 ML IV STA (14:23)
[2023-07-09] MEDS: SODIUM CHLORIDE 0.9% 1,000 ML IV SCH (14:24)
[2023-07-09] MEDS: ONDANSETRON 4 MG/2 ML VIAL IVP STA (14:26)
--- NOTE | 2023-07-09 14:30 | ED ---
General Adult HPI - General Chief complaint: Recheck/Abnormal Lab/Rx Stated complaint: DKA Time Seen by Provider: 07/09/23 14:04 Source: patient, EMS, RN notes reviewed, old records reviewed Mode of arrival: EMS Limitations: no limitations - History of Present Illness Initial comments: 27-year-old male presents emergency department via EMS chief complaint of hyperglycemia. Patient is well-known to emergency department has had multiple recent admissions for DKA. Patient reports of vomiting, abdominal pain, hyperglycemia. EMS reports blood sugar read high patient does not report any recent insulin use. Patient found to have significant tachycardia, tachypnea by EMS. Patient states his emesis was dark in color. - Related Data Home Medications Medication Instructions Recorded Confirmed Insulin Detemir (Levemir) [Levemir] 30 unit SQ HS 03/07/23 07/09/23 Ergocalciferol [Vitamin D2 (1250 1,250 mcg PO Q30D 04/29/23 07/09/23 Mcg = 93992 Iu)] Famotidine [Pepcid] 20 mg PO BID 04/29/23 07/09/23 Gabapentin 600 mg PO TID 04/29/23 07/09/23 Insulin Lispro [Insulin Lispro 7 units SQ AC-TID 04/29/23 07/09/23 Kwikpen U-100] Losartan Potassium 50 mg PO DAILY 04/29/23 07/09/23 Mirtazapine 7.5 mg PO HS 04/29/23 07/09/23 Allergies Allergy/AdvReac Type Severity Reaction Status Date / Time No Known Allergies Allergy Verified 07/09/23 14:16 Review of Systems ROS Statement: Those systems with pertinent positive or pertinent negative responses have been documented in the HPI. ROS Other: All systems not noted in ROS Statement are negative. Past Medical History Past Medical History: Asthma, Diabetes Mellitus, Neurologic Disorder, Skin Disorder Additional Past Medical History / Comment(s): IDDM type I, neuropathy bilateral feet, DKA, eczema. History of Any Multi-Drug Resistant Organisms: None Reported Past Surgical History: Adenoidectomy Additional Past Surgical History / Comment(s): 2002 Recent EGD- gastritis Past Anesthesia/Blood Transfusion Reactions: No Reported Reaction Past Psychological History: Anxiety, Depression Smoking Status: Former smoker Past Alcohol Use History: None Reported Past Drug Use History: Marijuana - Past Family History Mother Family Medical History: CVA/TIA Additional Family Medical History / Comment(s): TIA Father Family Medical History: Hyperlipidemia, Hypertension Additional Family Medical History / Comment(s): . General Exam Limitations: no limitations General appearance: alert, in no apparent distress Head exam: Present: atraumatic, normocephalic, normal inspection ENT exam: Present: normal exam, mucous membranes moist Neck exam: Present: normal inspection. Absent: tenderness, meningismus, lymphadenopathy Respiratory exam: Present: respiratory distress (Tachypneic,). Absent: normal lung sounds bilaterally, wheezes, rales, rhonchi, stridor Cardiovascular Exam: Present: normal rhythm, tachycardia, normal heart sounds. Absent: systolic murmur, diastolic murmur, rubs, gallop, clicks GI/Abdominal exam: Present: soft, tenderness, normal bowel sounds. Absent: distended, guarding, rebound, rigid Back exam: Absent: CVA tenderness (R) Neurological exam: Present: alert Course Vital Signs 07/09/23 07/09/23 07/09/23 14:06 14:32 15:26 Temperature 97 F L Pulse Rate 116 H 116 H Respiratory 36 H 40 H Rate Blood Pressure 94/54 114/96 O2 Sat by Pulse 98 98 Oximetry EKG Findings - EKG Comments: EKG Findings:: EKG performed at 14: 26 sinus tachycardia rate of 115 QRS 247 QRS 102 QT/QTc 355/423 - EKG Results: EKG: interpreted by JOANNE Medical Decision Making - Medical Decision Making Was pt. sent in by a medical professional or institution (, PA, STITCH BONDING MACHINE TENDER, urgent care, hospital, or fdc...) When possible be specific @ -No Did you speak to anyone other than the patient for history (EMS, parent, family, police, friend...)? What history was obtained from this source @ -No Did you review nursing and triage notes (agree or disagree)? Why? @ -I reviewed and agree with nursing and triage notes Were old charts reviewed (outside hosp., previous admission, EMS record, old EKG, old radiological studies, urgent care reports/EKG's, fdc records)? Report findings @ -Reviewed prior labs, admission records Differential Diagnosis (chest pain, altered mental status, abdominal pain women, abdominal pain men, vaginal bleeding, weakness, fever, dyspnea, syncope, headache, dizziness, GI bleed, back pain, seizure, CVA, palpatations, mental health, musculoskeletal)? @ -DKA, hypoglycemia, differential Abdominal Pain Men: Appendicitis, cholecystitis, diverticulosis, ischemic bowel, pancreatitis, hepatitis, UTI, gastroenteritis, AAA, incarcerated hernia, bowel obstruction, constipation, inflammatory bowel, hepatitis, peptic ulcer disease, splenic infarction, perforated viscus, testicular torsion, this is not meant to be an all-inclusive list EKG interpreted by me (3pts min.). @ -As above X-rays interpreted by me (1pt min.). @ -None done CT interpreted by me (1pt min.). @ -None done U/S interpreted by me (1pt. min.). @ -None done What testing was considered but not performed or refused? (CT, X-rays, U/S, labs)? Why? @ -None What meds were considered but not given or refused? Why? @ -None Did you discuss the management of the patient with other professionals (professionals i.e. , PA, STITCH BONDING MACHINE TENDER, lab, RT, psych nurse, psychologist social, car lubricator, teacher, contact officer, casework specialist)? Give summary @ -[Dr. Valenzuela from for admission, Dr. Butler for ICU Was smoking cessation discussed for >3mins.? @ -No Was critical care preformed (if so, how long)? @ -No Were there social determinants of health that impacted care today? How? (Homelessness, low income, unemployed, alcoholism, drug addiction, transportation, low edu. Level, literacy, decrease access to med. care, correction, rehab)? @ -No Was there de-escalation of care discussed even if they declined (Discuss DNR or withdrawal of care, Hospice)? DNR status @ -No What co-morbidities impacted this encounter? (DM, HTN, Smoking, COPD, CAD, Cancer, CVA, ARF, Chemo, Hep., AIDS, mental health diagnosis, sleep apnea, morbid obesity)? @ -[Diabetes Was patient admitted / discharged? Hospital course, mention meds given and route, prescriptions, significant lab abnormalities, going to OR and other pertinent info. @ -Admitted patient found to be in DKA. Patient has severe metabolic acidosis. Patient was started on IV fluid bolus, maintenance fluids, insulin drip with insulin bolus. Patient was given bicarb, Protonix. Patient will be admitted to ICU for close monitoring and care. Undiagnosed new problem with uncertain prognosis? @ -[No Drug Therapy requiring intensive monitoring for toxicity (Heparin, Nitro, Insulin, Cardizem)? @ -No Were any procedures done? @ -No Diagnosis/symptom? @ -[DKA Acute, or Chronic, or Acute on Chronic? @ -Acute Uncomplicated (without systemic symptoms) or Complicated (systemic symptoms)? @ -Complicated Side effects of treatment? @ -[No Exacerbation, Progression, or Severe Exacerbation? @ -No Poses a threat to life or bodily function? How? (Chest pain, USA, NC, pneumonia, PE, COPD, DKA, ARF, appy, cholecystitis, CVA, Diverticulitis, Homicidal, Suicidal, threat to staff... and all critical care pts) @ -Yes severe metabolic acidosis DKA - Lab Data Result diagrams: 07/09/23 14:16 07/09/23 14:16 Lab Results 07/09/23 07/09/23 07/09/23 Range/Units 14:16 14:16 14:16 WBC 35.2 H (3.8-10.6) k/uL RBC 3.89 L (4.30-5.90) m/uL Hgb 11.0 L (13.0-17.5) gm/dL Hct 39.5 (39.0-53.0) % MCV 101.6 H D (80.0-100.0) fL MCH 28.2 (25.0-35.0) pg MCHC 27.7 L (31.0-37.0) g/dL RDW 16.5 H (11.5-15.5) % Plt Count 758 H (150-450) k/uL MPV 8.5 Neutrophils % 84 % Lymphocytes % 12 % Monocytes % 4 % Eosinophils % 0 % Basophils % 1 % Neutrophils # 29.4 H (1.3-7.7) k/uL Lymphocytes # 4.0 (1.0-4.8) k/uL Monocytes # 1.3 H (0-1.0) k/uL Eosinophils # 0.1 (0-0.7) k/uL Basophils # 0.2 (0-0.2) k/uL Hypochromasia Marked Anisocytosis Slight Macrocytosis Moderate VBG pH (7.31-7.41) VBG pCO2 (37-51) mmHg VBG HCO3 (24-28) mmol/L Sodium 141 (137-145) mmol/L Potassium 5.8 H (3.5-5.1) mmol/L Chloride 99 (98-107) mmol/L Carbon Dioxide <5 L* (22-30) mmol/L Anion Gap mmol/L BUN 29 H (9-20) mg/dL Creatinine 1.51 H (0.66-1.25) mg/dL Est GFR (CKD-EPI)AfAm 74 (>60 ml/min/1.73 sqM) Est GFR (CKD-EPI)NonAf 64 (>60 ml/min/1.73 sqM) Glucose 853 H* (74-99) mg/dL POC Glucose (mg/dL) (70-110) mg/dL POC Glu Section 8 Property Manager ID Plasma Lactic Acid Len 4.4 H* (0.7-2.0) mmol/L Calcium 9.3 (8.4-10.2) mg/dL Magnesium 2.4 H (1.6-2.3) mg/dL Total Bilirubin 0.3 (0.2-1.3) mg/dL AST 28 (17-59) U/L ALT 43 (4-49) U/L Alkaline Phosphatase 128 H (38-126) U/L Total Protein 6.4 (6.3-8.2) g/dL Albumin 4.4 (3.5-5.0) g/dL Lipase 140 (23-300) U/L Acetone, Qual Positive (Negative) 07/09/23 07/09/23 Range/Units 14:16 14:39 WBC (3.8-10.6) k/uL RBC (4.30-5.90) m/uL Hgb (13.0-17.5) gm/dL Hct (39.0-53.0) % MCV (80.0-100.0) fL MCH (25.0-35.0) pg MCHC (31.0-37.0) g/dL RDW (11.5-15.5) % Plt Count (150-450) k/uL MPV Neutrophils % % Lymphocytes % % Monocytes % % Eosinophils % % Basophils % % Neutrophils # (1.3-7.7) k/uL Lymphocytes # (1.0-4.8) k/uL Monocytes # (0-1.0) k/uL Eosinophils # (0-0.7) k/uL Basophils # (0-0.2) k/uL Hypochromasia Anisocytosis Macrocytosis VBG pH 6.88 L* (7.31-7.41) VBG pCO2 13 L* (37-51) mmHg VBG HCO3 3 L* (24-28) mmol/L Sodium (137-145) mmol/L Potassium (3.5-5.1) mmol/L Chloride (98-107) mmol/L Carbon Dioxide (22-30) mmol/L Anion Gap mmol/L BUN (9-20) mg/dL Creatinine (0.66-1.25) mg/dL Est GFR (CKD-EPI)AfAm (>60 ml/min/1.73 sqM) Est GFR (CKD-EPI)NonAf (>60 ml/min/1.73 sqM) Glucose (74-99) mg/dL POC Glucose (mg/dL) >600 H (70-110) mg/dL POC Glu Section 8 Property Manager ID Wilver Melendez Plasma Lactic Acid Len (0.7-2.0) mmol/L Calcium (8.4-10.2) mg/dL Magnesium (1.6-2.3) mg/dL Total Bilirubin (0.2-1.3) mg/dL AST (17-59) U/L ALT (4-49) U/L Alkaline Phosphatase (38-126) U/L Total Protein (6.3-8.2) g/dL Albumin (3.5-5.0) g/dL Lipase (23-300) U/L Acetone, Qual (Negative) Critical Care Time Critical Care Time: Yes Total Critical Care Time: 35 Disposition Clinical Impression: DKA (diabetic ketoacidoses) Disposition: ADMITTED IP TO THIS [facility] Condition: Serious Referrals: Brown Valenzuela MD [Primary Care Provider] - 1-2 days Time of Disposition: 15:28
[2023-07-09 14:33] LABS: VBG PH 6.88 (7.31-7.41)
[2023-07-09] MEDS: INSULIN REGULAR BOLUS (FROM DRIP BAG) IV ONE (14:39)
[2023-07-09 14:40] LABS: ALT 43 U/L (4-49); AST 28 U/L (17-59); African American GFR (CKD) 74 (>60 ml/min/1.73 sqM); Albumin 4.4 g/dL (3.5-5.0); Alkaline Phosphatase 128 U/L (38-126); Blood Urea Nitrogen 29 mg/dL (9-20); Calcium 9.3 mg/dL (8.4-10.2); Chloride 99 mmol/L (98-107); Lipase 140 U/L (23-300); Magnesium 2.4 mg/dL (1.6-2.3); Non-African American GFR(CKD) 64 (>60 ml/min/1.73 sqM); Potassium 5.8 mmol/L (3.5-5.1); Sodium 141 mmol/L (137-145); Total Bilirubin 0.3 mg/dL (0.2-1.3); Total Protein 6.4 g/dL (6.3-8.2)
[2023-07-09] MEDS: INSULIN REGULAR 100 UNIT in SODIUM CHLORIDE 0.9% 100 ML IV SCH (14:40)
[2023-07-09 14:41] LABS: Glucose,Whole Blood >600 mg/dL (70-110)
[2023-07-09 14:49] LABS: Carbon Dioxide <5 mmol/L (22-30); Glucose 853 mg/dL (74-99)
[2023-07-09 15:04] LABS: Anisocytosis Slight; Basophils # (A) 0.2 k/uL (0-0.2); Basophils % (A) 1 %; Eosinophils # (A) 0.1 k/uL (0-0.7); Eosinophils % (A) 0 %; HCT 39.5 % (39.0-53.0); Hypochromasia Marked; Lymphocytes % (A) 12 %; MCH 28.2 pg (25.0-35.0); MCHC 27.7 g/dL (31.0-37.0); Macrocytosis Moderate; Mean Platelet Volume 8.5; Monocytes # (A) 1.3 k/uL (0-1.0); Monocytes % (A) 4 %; Neutrophils # (A) 29.4 k/uL (1.3-7.7); Neutrophils % (A) 84 %; Platelet Count 758 k/uL (150-450); RBC 3.89 m/uL (4.30-5.90); RDW 16.5 % (11.5-15.5); WBC 35.2 k/uL (3.8-10.6)
[2023-07-09 15:07] LABS: MCV 101.6 fL (80.0-100.0)
[2023-07-09 15:35] LABS: Glucose,Whole Blood >600 mg/dL (70-110)
[2023-07-09 15:39] LABS: Appearance,Urine Clear (Clear); Bilirubin,Urine Negative (Negative); Blood,Urine Negative (Negative); Color,Urine Colorless; Glucose,Urine (UA) 4+ (Negative); Leukocyte Esterase,Urine Negative (Negative); Nitrite,Urine Negative (Negative); Protein,Urine Trace (Negative); Specific Gravity,Urine 1.018 (1.001-1.035); Urobilinogen,Urine <2.0 mg/dL (<2.0)
[2023-07-09] MEDS: PANTOPRAZOLE 40 MG/10 ML VIAL IVP STA (15:55)
[2023-07-09] MEDS: SODIUM BICARB 8.4% 50 ML SYR (1 MEQ/ML) IV STA (15:55)
[2023-07-09 15:58] LABS: Ketones,Urine 4+ (Negative)
[2023-07-09 16:31] LABS: African American GFR (CKD) 89 (>60 ml/min/1.73 sqM); Blood Urea Nitrogen 28 mg/dL (9-20); Chloride 109 mmol/L (98-107); Non-African American GFR(CKD) 77 (>60 ml/min/1.73 sqM); Potassium 5.7 mmol/L (3.5-5.1); Sodium 146 mmol/L (137-145)
[2023-07-09 16:33] LABS: Glucose,Whole Blood 522 mg/dL (70-110)
[2023-07-09 16:58] LABS: Carbon Dioxide <5 mmol/L (22-30); Glucose 693 mg/dL (74-99)
[2023-07-09 17:41] LABS: Glucose,Whole Blood 419 mg/dL (70-110)
[2023-07-09 18:48] LABS: Glucose,Whole Blood 333 mg/dL (70-110)
[2023-07-09 19:48] LABS: Glucose,Whole Blood 215 mg/dL (70-110)
[2023-07-09] MEDS: D5-0.45% NACL WITH KCL 20MEQ/L 1,000 ML IV SCH (19:59)
[2023-07-09 20:38] LABS: Glucose,Whole Blood 189 mg/dL (70-110)
[2023-07-09 21:36] LABS: African American GFR (CKD) >90 (>60 ml/min/1.73 sqM); Anion Gap 18 mmol/L; Blood Urea Nitrogen 25 mg/dL (9-20); Carbon Dioxide 11 mmol/L (22-30); Chloride 115 mmol/L (98-107); Glucose 195 mg/dL (74-99); Non-African American GFR(CKD) >90 (>60 ml/min/1.73 sqM); Potassium 4.5 mmol/L (3.5-5.1); Sodium 144 mmol/L (137-145)
[2023-07-09 22:17] LABS: Glucose,Whole Blood 154 mg/dL (70-110)
[2023-07-09 23:18] LABS: Glucose,Whole Blood 143 mg/dL (70-110)
[2023-07-10 00:32] LABS: Glucose,Whole Blood 128 mg/dL (70-110)
[2023-07-10 01:17] LABS: Glucose,Whole Blood 122 mg/dL (70-110)
[2023-07-10 01:38] LABS: African American GFR (CKD) >90 (>60 ml/min/1.73 sqM); Anion Gap 9 mmol/L; Blood Urea Nitrogen 24 mg/dL (9-20); Calcium 8.6 mg/dL (8.4-10.2); Carbon Dioxide 18 mmol/L (22-30); Chloride 115 mmol/L (98-107); Glucose 124 mg/dL (74-99); Non-African American GFR(CKD) >90 (>60 ml/min/1.73 sqM); Potassium 4.4 mmol/L (3.5-5.1); Sodium 142 mmol/L (137-145)
--- NOTE | 2023-07-10 02:04 | P.CNPUL ---
History of Present Illness Consult date: 07/10/23 Requesting physician: Cirilo Raymond Reason for consult: other (Diabetic ketoacidosis) Chief complaint: High blood sugars, nausea and vomiting History of present illness: I am seeing this patient in consultation today 07/10/2023 in the emergency room, trauma bay 3, for diabetic ketoacidosis and ICU management. Patient is a 27-year-old white male with past medical history significant for type 1 diabetes mellitus and medication noncompliance. He has had numerous hospitalizations for DKA already this year, and was just discharged 10 days ago for the same. Patient presented to emergency room yesterday afternoon for elevated blood sugars and subsequent nausea and vomiting. Blood glucose on arrival was 853. Serum bicarb was less than 5 and anion gap was unmeasurable. Acetone positive. Patient was found to be in a state of diabetic ketoacidosis, and started on the DKA protocol. He is currently resting in bed, laying on his left lateral side. He is alert and oriented. He is in no acute distress. Patient states that he does have access to insulin if he wants to take it. He has had numerous inpatient psychological evaluations. He has had no further nausea and vomiting since arrival. Previously described as brown/yellow emesis. Denies any abdominal pain, hematemesis, diarrhea. Denies any fever. Denies any URI-like symptoms. CBC on arrival had a WBC count of 35.2, hemoglobin 11, hematocrit 39.5, platelets 758. Most recent metabolic profile includes a sodium 142, pot assium 4.4, chloride 115, serum bicarb 18, anion gap 9, BUN 24, creatinine 0.66, glucose 124. Insulin is infusing at 3.3 units/h. D5 W/0.45% sodium chloride/20 mEq of K is infusing at 150 MLS per hour. Vital signs are stable. Review of Systems REVIEW OF SYSTEMS: CONSTITUTIONAL: Denies any recent significant weight loss or weight gain. Admits weakness and fatigue. EYES: Denies change in vision. EARS, NOSE, MOUTH, THROAT: Denies headaches, denies sore throat. CARDIOVASCULAR: Denies chest pain, palpitations or syncopal episodes. RESPIRATORY: Denies shortness of breath, cough, congestion or hemoptysis. GASTROINTESTINAL: see HPI. GENITOURINARY: Denies hematuria, denies infections. MUSKULOSKELETAL: Denies pain, denies swelling. INTEGUMENTARY: Denies rash, denies eczema. NEUROLOGICAL: Denies recent memory loss, no recent seizure activity. PSYCHIATRIC: Denies anxiety, denies depression. HEMATOLOGIC/LYMPHATIC: Denies anemia, denies enlarged lymph node Past Medical History Past Medical History: Asthma, Diabetes Mellitus, Neurologic Disorder, Skin Disorder Additional Past Medical History / Comment(s): IDDM type I, neuropathy bilateral feet, DKA, eczema. History of Any Multi-Drug Resistant Organisms: None Reported Past Surgical History: Adenoidectomy Additional Past Surgical History / Comment(s): 2002 Recent EGD- gastritis Past Anesthesia/Blood Transfusion Reactions: No Reported Reaction Past Psychological History: Anxiety, Depression Smoking Status: Former smoker Past Alcohol Use History: None Reported Past Drug Use History: Marijuana - Past Family History Mother Family Medical History: CVA/TIA Additional Family Medical History / Comment(s): TIA Father Family Medical History: Hyperlipidemia, Hypertension Additional Family Medical History / Comment(s): . Medications and Allergies Home Medications Medication Instructions Recorded Confirmed Type Insulin Detemir (Levemir) [Levemir] 30 unit SQ HS 03/07/23 07/09/23 History Ergocalciferol [Vitamin D2 (1250 1,250 mcg PO Q30D 04/29/23 07/09/23 History Mcg = 73159 Iu)] Famotidine [Pepcid] 20 mg PO BID 04/29/23 07/09/23 History Gabapentin 600 mg PO TID 04/29/23 07/09/23 History Insulin Lispro [Insulin Lispro 7 units SQ AC-TID 04/29/23 07/09/23 History Kwikpen U-100] Losartan Potassium 50 mg PO DAILY 04/29/23 07/09/23 History Mirtazapine 7.5 mg PO HS 04/29/23 07/09/23 History Allergies Allergy/AdvReac Type Severity Reaction Status Date / Time No Known Allergies Allergy Verified 07/09/23 14:16 Physical Exam Vitals: Vital Signs Temp Pulse Resp BP Pulse Ox 07/09/23 23:16 112 H 24 99/54 99 07/09/23 22:18 110 H 24 100/56 100 07/09/23 20:01 115 H 26 H 106/61 98 07/09/23 18:46 114 H 18 99/62 97 07/09/23 15:26 116 H 40 H 114/96 98 07/09/23 14:32 98 07/09/23 14:06 97 F L 116 H 36 H 94/54 Intake and Output 07/09/23 07/09/23 07/10/23 14:59 22:59 06:59 Intake Total 62.332 Balance 62.332 Intake: Intake, IV Titration 62.332 Amount Insulin Regular 100 unit 62.332 In Sodium Chloride 0.9% 100 ml @ 0.1 UNITS/KG/HR 6.643 mls/hr IV .[id number] [facility] Rx#:[id number] Other: Weight 65.771 kg GENERAL EXAM: Alert, 27-year-old white male, disheveled, comfortable in no apparent distress. HEAD: Normocephalic and atraumatic EYES: Normal reaction of pupils, equal size. NOSE: Clear with pink turbinates. THROAT: No erythema or exudates. NECK: No masses, no JVD. CHEST: No chest wall deformity. LUNGS: Equal air entry with no crackles, wheeze, rhonchi or dullness. On room air. No conversational dyspnea or accessory muscle use.. CVS: S1 and S2 normal with grade 1 systolic murmur, regular rhythm. No other extra heart sounds ABDOMEN: No hepatosplenomegaly, active bowel sounds, no guarding or rigidity. SPINE: No scoliosis or deformity SKIN: No rashes CENTRAL NERVOUS SYSTEM: No focal deficits, tone is normal in all 4 extremities. EXTREMITIES: There is no peripheral edema, clubbing, or cyanosis. Peripheral pulses are intact. Results - Laboratory Findings CBC and BMP: 07/09/23 14:16 07/10/23 00:42 Abnormal lab findings: Abnormal Labs 07/09/23 07/09/23 07/09/23 14:16 14:16 14:16 WBC 35.2 H RBC 3.89 L Hgb 11.0 L MCV 101.6 H D MCHC 27.7 L RDW 16.5 H Plt Count 758 H Neutrophils # 29.4 H Monocytes # 1.3 H VBG pH VBG pCO2 VBG HCO3 Sodium Potassium 5.8 H Chloride Carbon Dioxide <5 L* BUN 29 H Creatinine 1.51 H Glucose 853 H* POC Glucose (mg/dL) Plasma Lactic Acid Len Phosphorus Magnesium 2.4 H Alkaline Phosphatase 128 H Urine Protein Trace H Urine Glucose (UA) 4+ H Urine Ketones 4+ H 07/09/23 07/09/23 07/09/23 14:16 14:16 14:39 WBC RBC Hgb MCV MCHC RDW Plt Count Neutrophils # Monocytes # VBG pH 6.88 L* VBG pCO2 13 L* VBG HCO3 3 L* Sodium Potassium Chloride Carbon Dioxide BUN Creatinine Glucose POC Glucose (mg/dL) >600 H Plasma Lactic Acid Len 4.4 H* Phosphorus Magnesium Alkaline Phosphatase Urine Protein Urine Glucose (UA) Urine Ketones 07/09/23 07/09/23 07/09/23 15:34 15:47 15:47 WBC RBC Hgb MCV MCHC RDW Plt Count Neutrophils # Monocytes # VBG pH VBG pCO2 VBG HCO3 Sodium 146 H Potassium 5.7 H Chloride 109 H Carbon Dioxide <5 L* BUN 28 H Creatinine 1.28 H Glucose 693 H* POC Glucose (mg/dL) >600 H Plasma Lactic Acid Len Phosphorus 9.5 H* Magnesium Alkaline Phosphatase Urine Protein Urine Glucose (UA) Urine Ketones 07/09/23 07/09/23 07/09/23 16:31 17:27 17:40 WBC RBC Hgb MCV MCHC RDW Plt Count Neutrophils # Monocytes # VBG pH VBG pCO2 VBG HCO3 Sodium Potassium Chloride Carbon Dioxide BUN Creatinine Glucose POC Glucose (mg/dL) 522 H 419 H Plasma Lactic Acid Len 2.6 H* Phosphorus Magnesium Alkaline Phosphatase Urine Protein Urine Glucose (UA) Urine Ketones 07/09/23 07/09/23 07/09/23 18:46 19:45 20:37 WBC RBC Hgb MCV MCHC RDW Plt Count Neutrophils # Monocytes # VBG pH VBG pCO2 VBG HCO3 Sodium Potassium Chloride Carbon Dioxide BUN Creatinine Glucose POC Glucose (mg/dL) 333 H 215 H 189 H Plasma Lactic Acid Len Phosphorus Magnesium Alkaline Phosphatase Urine Protein Urine Glucose (UA) Urine Ketones 07/09/23 07/09/23 07/09/23 20:44 20:44 22:12 WBC RBC Hgb MCV MCHC RDW Plt Count Neutrophils # Monocytes # VBG pH VBG pCO2 VBG HCO3 Sodium Potassium Chloride 115 H Carbon Dioxide 11 L BUN 25 H Creatinine Glucose 195 H POC Glucose (mg/dL) 154 H Plasma Lactic Acid Len Phosphorus 2.2 L Magnesium Alkaline Phosphatase Urine Protein Urine Glucose (UA) Urine Ketones 07/09/23 07/10/23 07/10/23 23:14 00:30 00:42 WBC RBC Hgb MCV MCHC RDW Plt Count Neutrophils # Monocytes # VBG pH VBG pCO2 VBG HCO3 Sodium Potassium Chloride 115 H Carbon Dioxide 18 L BUN 24 H Creatinine Glucose 124 H POC Glucose (mg/dL) 143 H 128 H Plasma Lactic Acid Len Phosphorus Magnesium Alkaline Phosphatase Urine Protein Urine Glucose (UA) Urine Ketones 07/10/23 01:11 WBC RBC Hgb MCV MCHC RDW Plt Count Neutrophils # Monocytes # VBG pH VBG pCO2 VBG HCO3 Sodium Potassium Chloride Carbon Dioxide BUN Creatinine Glucose POC Glucose (mg/dL) 122 H Plasma Lactic Acid Len Phosphorus Magnesium Alkaline Phosphatase Urine Protein Urine Glucose (UA) Urine Ketones Assessment and Plan Assessment: Acute diabetic ketoacidosis, likely secondary to medication noncompliance. Patient has had numerous episodes of DKA, recently discharged on 06/30/2023 for the same, he is being treated based on the DKA protocol Severe anion gap metabolic acidosis, secondary to above Severe dehydration Acute kidney injury, prerenal, secondary to above. Improved Hyperkalemia, improved Type 1 diabetes mellitus, with poor medication compliance. Acute leukocytosis, likely reactive to DKA Diabetic neuropathy History of major depression Chronic marijuana use Chronic ongoing nicotine dependence Plan: The patient was seen and evaluated Medications and labs reviewed Monitor electrolytes Tolerating oral intake Continue with the DKA protocol. Patient will be admitted to the intensive care unit once bed available. I have personally seen and examined the patient, performed the documentation and the assessment and plan as written. Number of minutes spent on the visit:20 Time with Patient: Greater than 30
[2023-07-10 02:06] LABS: Glucose,Whole Blood 131 mg/dL (70-110)
[2023-07-10 03:20] LABS: Glucose,Whole Blood 156 mg/dL (70-110)
[2023-07-10 04:38] LABS: Glucose,Whole Blood 165 mg/dL (70-110)
[2023-07-10 06:01] LABS: Glucose,Whole Blood 223 mg/dL (70-110)
[2023-07-10 06:52] LABS: African American GFR (CKD) >90 (>60 ml/min/1.73 sqM); Anion Gap 10 mmol/L; Blood Urea Nitrogen 21 mg/dL (9-20); Carbon Dioxide 16 mmol/L (22-30); Chloride 112 mmol/L (98-107); Glucose 211 mg/dL (74-99); Non-African American GFR(CKD) >90 (>60 ml/min/1.73 sqM); Potassium 4.2 mmol/L (3.5-5.1); Sodium 138 mmol/L (137-145)
[2023-07-10 06:54] LABS: Glucose,Whole Blood 223 mg/dL (70-110)
[2023-07-10 07:53] LABS: Glucose,Whole Blood 234 mg/dL (70-110)
[2023-07-10 08:53] LABS: Glucose,Whole Blood 256 mg/dL (70-110)
[2023-07-10] MEDS ORDERED: DEXTROSE 50% SYRINGE 50 ML IVP PRN (09:54)
[2023-07-10 09:55] LABS: Glucose,Whole Blood 215 mg/dL (70-110)
--- NOTE | 2023-07-10 10:39 | HP ---
HISTORY AND PHYSICAL CHIEF COMPLAINT: DKA. HISTORY OF PRESENT ILLNESS: Another admission for this young man, who was just discharged a week ago. He came back in DKA with a blood sugar around 800 and his pH of around 6.8. When asked what happened, he states, "I don't know." REVIEW OF SYSTEMS: Unremarkable. Past medical history, family history, personal and social histories are unchanged. PHYSICAL EXAMINATION: HEAD, EARS, EYES, NOSE, MOUTH, AND THROAT: Normal except for dry mucous membranes. CHEST: Clear. CARDIAC: Exam demonstrates sinus rhythm. ABDOMEN: Soft. EXTREMITIES: Normal. NEUROLOGIC: Intact. Admitted to the hospital with diagnoses of, 1. Diabetic ketoacidosis. 2. Depression. PLAN: ICU management for DKA. MMODL / IJN: [id number] /
[2023-07-10 10:55] LABS: Glucose,Whole Blood 214 mg/dL (70-110)
[2023-07-10 12:17] LABS: Glucose,Whole Blood 186 mg/dL (70-110)
[2023-07-10 13:00] LABS: Anisocytosis Slight; Basophils # (A) 0.1 k/uL (0-0.2); Basophils % (A) 0 %; Eosinophils # (A) 0.1 k/uL (0-0.7); Eosinophils % (A) 0 %; HCT 29.9 % (39.0-53.0); HGB 9.4 gm/dL (13.0-17.5); Hypochromasia Slight; Lymphocytes # (A) 1.8 k/uL (1.0-4.8); Lymphocytes % (A) 9 %; MCH 27.9 pg (25.0-35.0); MCHC 31.5 g/dL (31.0-37.0); MCV 88.6 fL (80.0-100.0); Monocytes # (A) 1.2 k/uL (0-1.0); Monocytes % (A) 6 %; Neutrophils # (A) 18.2 k/uL (1.3-7.7); Neutrophils % (A) 85 %; Platelet Count 527 k/uL (150-450); RBC 3.37 m/uL (4.30-5.90); RDW 17.4 % (11.5-15.5); WBC 21.5 k/uL (3.8-10.6)
[2023-07-10 13:03] LABS: VBG PH 7.38 (7.31-7.41)
[2023-07-10 13:10] LABS: Phosphorus 2.2 mg/dL (2.5-4.5); Potassium 4.3 mmol/L (3.5-5.1)
[2023-07-10 13:19] LABS: Glucose,Whole Blood 196 mg/dL (70-110)
[2023-07-10 13:59] LABS: Glucose,Whole Blood 188 mg/dL (70-110)
[2023-07-10 14:32] VITALS: BMI 18.1
[2023-07-10 14:36] LABS: Glucose,Whole Blood 204 mg/dL (70-110)
[2023-07-10 15:32] LABS: Glucose,Whole Blood 294 mg/dL (70-110)
[2023-07-10 15:55] LABS: African American GFR (CKD) >90 (>60 ml/min/1.73 sqM); Anion Gap 8 mmol/L; Blood Urea Nitrogen 14 mg/dL (9-20); Carbon Dioxide 19 mmol/L (22-30); Chloride 105 mmol/L (98-107); Glucose 244 mg/dL (74-99); Non-African American GFR(CKD) >90 (>60 ml/min/1.73 sqM); Potassium 4.4 mmol/L (3.5-5.1); Sodium 132 mmol/L (137-145)
[2023-07-10 16:39] LABS: Glucose,Whole Blood 225 mg/dL (70-110)
[2023-07-10 17:31] LABS: Glucose,Whole Blood 188 mg/dL (70-110)
[2023-07-10 18:22] LABS: Glucose,Whole Blood 153 mg/dL (70-110)
[2023-07-10] MEDS: INSULIN DETEMIR (LEVEMIR) 100 UNIT/ML SYR SQ SCH (18:28)
[2023-07-10 19:43] LABS: Glucose,Whole Blood 183 mg/dL (70-110)
--- NOTE | 2023-07-10 20:31 | PN ---
PROGRESS NOTE DATE OF SERVICE: 07/10/2023 CHIEF COMPLAINT: DKA. HISTORY OF PRESENT ILLNESS: This gentleman is lethargic, but awake. He denies abdominal pain, chest pain, etc. PHYSICAL EXAMINATION: CHEST: Clear. CARDIAC: Normal. ABDOMEN: Soft, nontender. IMPRESSION: 1. Diabetic ketoacidosis. 2. Dehydration. 3. Metabolic acidosis. 4. Depression. PLAN: Await bed in ICU. MMODL / IJN: [id number] /
[2023-07-11 00:14] LABS: Glucose,Whole Blood 132 mg/dL (70-110)
[2023-07-11 06:14] LABS: Glucose,Whole Blood 62 mg/dL (70-110)
[2023-07-11] MEDS: INSULIN ASPART (NovoLOG) 100 UNIT/ML VIAL SQ SCH (06:14)
[2023-07-11 06:36] LABS: Glucose,Whole Blood 61 mg/dL (70-110)
[2023-07-11 06:50] LABS: Glucose,Whole Blood 92 mg/dL (70-110)
--- NOTE | 2023-07-11 09:17 | CDI ---
Documentation Clarification Form Date: 07/11/2023 08:54:52 AM From: Luanne Bacon RN CCDS Phone: [phone] Admit Date: 07/09/2023 03:37:00 PM Patient Name: Raul Marquez Visit Number: [id number] Discharge Date: ATTENTION: The Clinical Documentation Specialists (CDI) and [facility] Coding Staff appreciate your assistance in clarifying documentation. Please respond to the clarification below the line at the bottom and electronically sign. The CDI & [facility] Coding staff will review the response and follow-up if needed. Please note: Queries are made part of the Legal Health Record. If you have any questions, please contact the author of this message via ITS. Dr. Brown Valenzuela Your patient has Diabetic Ketoacidosis 07/10, H&P. Based on this information and the findings below, is there an additional diagnosis that is clinically appropriate for this patient? History/Risk Factors: 27 year old male presents to the ED for elevated blood sugar, nausea and vomiting. Recent discharge 10 days ago for DKA. Medical History: DM1, Asthma, Neurologic disorder, Bilateral neuropathy and eczema 07/10, Pulmonary consult. Clinical Indicators: Admission Diagnosis: DKA type 1 diabetes and SHANTEL. 07/10, Pulmonary consult Labs, 07/09: Wbc 35.2, Glucose 693, Cr 1.28, Lactic acid 4.4, Acetone, Qual Positive VSS: 07/09 B/P 94/54; HR 116; RR 36; Temp 97F Oral Treatment: 07/09 Zofran 4mg IVP x 1; 07/09 0.9NS 2L IV x 1; 07/09 Humulin R 8 unit IV x 1; 07/09 07/10 Insulin Human Regular 100 unit in Sodium Chl 101mls @ 6.643 mls/hr IV; 07/09 Sodium Bicarb 8.4% Syr(1 Meq/Ml) 50ml IV x 1; 07/09 D5% 1/2NS-Kcl 20 Meq/L 1,000mls @ 150mls/hr IV; 07/10 Levemir 30U sq daily; 07/11 Novolog 7U Is there an additional diagnosis that is clinically appropriate for this patient? [ ] SIRS, due to Diabetic Ketoacidosis, with Acute kidney. [ ] Other, please specify [ ] Unable to determine SIRS Criteria: 2 or more of the following may indicate SIRS -Temperature < 96.8F(36C) or > 101.0F (38.3C) -Heart Rate > 90 bpm -Respiratory Rate > 20 breaths/min or PaCO2 < 32 mmHg -White Blood Cell Count > 12,000 or < 4,000 cells/mm3 or > 10% bands (Template Last Revised: July 2020) EDMUNDD
[2023-07-11 12:13] LABS: Glucose,Whole Blood 126 mg/dL (70-110)
--- NOTE | 2023-07-11 13:27 | P.PN ---
Subjective Progress Note Date: 07/11/23 Principal diagnosis: Acute diabetic ketoacidosis I am seeing this patient in consultation today 07/10/2023 in the emergency room, trauma bay 3, for diabetic ketoacidosis and ICU management. Patient is a 27-year-old white male with past medical history significant for type 1 diabetes mellitus and medication noncompliance. He has had numerous hospitalizations for DKA already this year, and was just discharged 10 days ago for the same. Patient presented to emergency room yesterday afternoon for elevated blood sugars and subsequent nausea and vomiting. Blood glucose on arrival was 853. Serum bicarb was less than 5 and anion gap was unmeasurable. Acetone positive. Patient was found to be in a state of diabetic ketoacidosis, and started on the DKA protocol. He is currently resting in bed, laying on his left lateral side. He is alert and oriented. He is in no acute distress. Patient states that he does have access to insulin if he wants to take it. He has had numerous inpatient psychological evaluations. He has had no further nausea and vomiting since arrival. Previously described as brown/yellow emesis. Denies any abdominal pain, hematemesis, diarrhea. Denies any fever. Denies any URI-like symptoms. CBC on arrival had a WBC count of 35.2, hemoglobin 11, hematocrit 39.5, platelets 758. Most recent metabolic profile includes a sodium 142, potassium 4.4, chloride 115, serum bicarb 18, anion gap 9, BUN 24, creatinine 0.66, glucose 124. Insulin is infusing at 3.3 units/h. D5 W/0.45% sodium chloride/20 mEq of K is infusing at 150 MLS per hour. Vital signs are stable. Reevaluated today on 07/11/2023, patient is resting in bed, not in any distress, very comfortable, on room air, he is on the sliding scale insulin, and is also on long-acting insulin. Doing great, blood sugar today is 126 on no other labs noted on the chart, hence would recommend discharge planning once the patient is cleared by his primary care physician showing in fact that the patient will end up back in the hospital within a very short Time knowing his clinical history and recurrent admissions Objective - Vital Signs Vital signs: Vital Signs Temp 98.0 F 07/11/23 11:07 Pulse 73 07/11/23 13:17 Resp 17 07/11/23 13:17 BP 118/92 07/11/23 11:07 Pulse Ox 99 07/11/23 11:07 FiO2 Intake & Output 07/10/23 07/11/23 07/11/23 18:59 06:59 18:59 Intake Total 24.627 924.151 5119 Output Total 300 Balance 24.627 -53.077 1130 Weight 65.771 kg Intake: Intake, IV Titration 24.627 6.923 Amount Insulin Regular 100 unit 24.627 6.923 In Sodium Chloride 0.9% 100 ml @ 0.1 UNITS/KG/HR 6.643 mls/hr IV .[id number] [facility] Rx#:[id number] Oral 240 1130 Output: Urine 300 Other: Voiding Method Toilet Toilet Toilet # Voids 2 2 - Exam General: The patient is awake and alert, in no distress, and does not appear acutely ill. Skin: Skin is warm and dry and no rashes or lesions are noted. Eye: Pupils are equal, round and reactive to light, extra-ocular movements are intact; there is normal conjunctiva bilaterally. Ears, nose, mouth and throat: There are moist mucous membranes and no oral lesions. Neck: The neck is supple, there is no tenderness or JVD. Cardiovascular: There is a regular rate and rhythm. No murmur, rub or gallop is appreciated. Respiratory: Clear throughout throughout no rhonchi crackles rhonchi or wheeze Gastrointestinal: Soft, non-distended, non-tender abdomen without masses or organomegaly noted. There is no rebound or guarding present. Bowel sounds are unremarkable. Back: There is no tenderness to palpation in the midline. There is no obvious deformity. Musculoskeletal: Normal ROM, no tenderness, There is no pedal edema. There is no calf tenderness or swelling. No cords were appreciated. Neurological: CN II-XII intact, Cranial nerves III through XII are intact. There are no obvious motor or sensory deficits. Coordination appears grossly intact. Speech is normal. Psychiatric: Cooperative, appropriate mood & affect, normal judgment. - Labs CBC & Chem 7: 07/10/23 11:50 07/10/23 15:17 Labs: Abnormal Lab Results - Last 24 Hours (Table) 07/10/23 07/10/23 07/10/23 Range/Units 11:50 13:57 14:35 VBG pCO2 35 L (37-51) mmHg VBG HCO3 20 L (24-28) mmol/L Sodium (137-145) mmol/L Carbon Dioxide (22-30) mmol/L Creatinine (0.66-1.25) mg/dL Glucose (74-99) mg/dL POC Glucose (mg/dL) 188 H 204 H (70-110) mg/dL Phosphorus (2.5-4.5) mg/dL 07/10/23 07/10/23 07/10/23 Range/Units 15:17 15:17 15:29 VBG pCO2 (37-51) mmHg VBG HCO3 (24-28) mmol/L Sodium 132 L (137-145) mmol/L Carbon Dioxide 19 L (22-30) mmol/L Creatinine 0.48 L (0.66-1.25) mg/dL Glucose 244 H (74-99) mg/dL POC Glucose (mg/dL) 294 H (70-110) mg/dL Phosphorus 2.0 L (2.5-4.5) mg/dL 07/10/23 07/10/23 07/10/23 Range/Units 16:38 17:30 18:20 VBG pCO2 (37-51) mmHg VBG HCO3 (24-28) mmol/L Sodium (137-145) mmol/L Carbon Dioxide (22-30) mmol/L Creatinine (0.66-1.25) mg/dL Glucose (74-99) mg/dL POC Glucose (mg/dL) 225 H 188 H 153 H (70-110) mg/dL Phosphorus (2.5-4.5) mg/dL 07/10/23 07/11/23 07/11/23 Range/Units 19:38 00:12 06:13 VBG pCO2 (37-51) mmHg VBG HCO3 (24-28) mmol/L Sodium (137-145) mmol/L Carbon Dioxide (22-30) mmol/L Creatinine (0.66-1.25) mg/dL Glucose (74-99) mg/dL POC Glucose (mg/dL) 183 H 132 H 62 L (70-110) mg/dL Phosphorus (2.5-4.5) mg/dL 07/11/23 07/11/23 Range/Units 06:35 12:11 VBG pCO2 (37-51) mmHg VBG HCO3 (24-28) mmol/L Sodium (137-145) mmol/L Carbon Dioxide (22-30) mmol/L Creatinine (0.66-1.25) mg/dL Glucose (74-99) mg/dL POC Glucose (mg/dL) 61 L 126 H (70-110) mg/dL Phosphorus (2.5-4.5) mg/dL Assessment and Plan Assessment: Impression: Acute DKA, resolved Severe dehydration, resolved Type 1 diabetes and diabetic neuropathy History of major depression History of noncompliance. Recommendation: Will clear the patient for discharge if cleared by his primary care physician Will follow as needed Time with Patient: Less than 30
[2023-07-11 16:44] LABS: Glucose,Whole Blood 210 mg/dL (70-110)
--- NOTE | 2023-07-11 19:49 | PN ---
PROGRESS NOTE DATE OF SERVICE: 07/11/2023 CHIEF COMPLAINT: DKA. HISTORY OF PRESENT ILLNESS: This gentleman is doing well. His gap is closed. Sugars are better. He is nauseated. PHYSICAL EXAMINATION: CHEST: Clear. CARDIAC: Normal. ABDOMEN: Soft, nontender. VITAL SIGNS: Normal. IMPRESSION: 1. Diabetic ketoacidosis. 2. Dehydration. 3. Metabolic acidosis. 4. Depression. 5. Nausea. PLAN: Hold up discharge today and probably send home tomorrow. MMODL / IJN: [id number] /
[2023-07-11 20:03] LABS: Glucose,Whole Blood 267 mg/dL (70-110)
[2023-07-11] MEDS: INSULIN DETEMIR (LEVEMIR) 100 UNIT/ML SYR SQ SCH (20:29)
[2023-07-12 01:58] LABS: Glucose,Whole Blood 158 mg/dL (70-110)
[2023-07-12 04:26] LABS: Glucose,Whole Blood 121 mg/dL (70-110)
[2023-07-12 05:21] VITALS: TEMP 98.5
[2023-07-12 06:17] LABS: Glucose,Whole Blood 73 mg/dL (70-110)
[2023-07-12 09:03] VITALS: BP 116/84; PULSE 77; RESP 16
--- NOTE | 2023-07-12 21:04 | DS ---
DISCHARGE SUMMARY CHIEF COMPLAINT: Diabetic ketoacidosis. HISTORY OF PRESENT ILLNESS AND PHYSICAL EXAMINATION: Details of this man's history and physical can be found in the initial workup. LABORATORY STUDIES: While he is in a hospital, he had laboratory studies, details of which can be found in the laboratory section of chart. COURSE IN THE HOSPITAL: After admission, he was placed on bedrest and started on intravenous fluids and DKA protocol. He did well. Gap closed and he was slightly nauseated, but started eating, was doing well and then signed out against medical advice on 12 July. FINAL DIAGNOSES: 1. Diabetic ketoacidosis. 2. Depression. 3. Type 1 insulin dependant diabetes. 4. Peripheral neuropathy. 5. Gastroparesis. OPERATIONS: None. CONSULTATIONS: Intensive Medicine. He is improved. GRACE / ALDEN: [id number] /
--- NOTE | 2023-07-25 11:19 | CDI ---
Documentation Clarification Form Date: 07/11/2023 08:54:00 AM From: Luanne Bacon Phone: [phone] Admit Date: 07/09/2023 03:37:00 PM Patient Name: Raul Marquez Visit Number: [id number] Discharge Date: 07/12/2023 11:05:00 AM ATTENTION: The Clinical Documentation Specialists (CDI) and [facility] Coding Staff appreciate your assistance in clarifying documentation. Please respond to the clarification below the line at the bottom and electronically sign. The CDI & [facility] Coding staff will review the response and follow-up if needed. Please note: Queries are made part of the Legal Health Record. If you have any questions, please contact the author of this message via ITS. Dr. Brown Valenzuela Your patient has Diabetic Ketoacidosis 07/10, H&P. Based on this information and the findings below, is there an additional diagnosis that is clinically appropriate for this patient? History/Risk Factors: 27 year old male presents to the ED for elevated blood sugar, nausea and vomiting. Recent discharge 10 days ago for DKA. Medical History: DM1, Asthma, Neurologic disorder, Bilateral neuropathy and eczema 07/10, Pulmonary consult. Clinical Indicators: Admission Diagnosis: DKA type 1 diabetes and SHANTEL. 07/10, Pulmonary consult Labs, 07/09: Wbc 35.2, Glucose 693, Cr 1.28, Lactic acid 4.4, Acetone, Qual Positive VSS: 07/09 B/P 94/54; HR 116; RR 36; Temp 97F Oral Treatment: 07/09 Zofran 4mg IVP x 1; 07/09 0.9NS 2L IV x 1; 07/09 Humulin R 8 unit IV x 1; 07/09 07/10 Insulin Human Regular 100 unit in Sodium Chl 101mls @ 6.643 mls/hr IV; 07/09 Sodium Bicarb 8.4% Syr(1 Meq/Ml) 50ml IV x 1; 07/09 D5% 1/2NS-Kcl 20 Meq/L 1,000mls @ 150mls/hr IV; 07/10 Levemir 30U sq daily; 07/11 Novolog 7U Is there an additional diagnosis that is clinically appropriate for this patient? [ ] SIRS, due to Diabetic Ketoacidosis, with Acute kidney. [ ] Other, please specify [ ] Unable to determine MTDD
--- NOTE | 2023-08-23 04:26 | MISC ---
MISCELLANOUS REPORT Unable to determine. MMODL / IJN: [id number] /
--- NOTE | 2023-08-23 05:35 | MISC ---
MISCELLANOUS REPORT Undetermined. MMODL / IJN: [id number] /
== END 2023-07-12 11:05 | disposition left against medical advice (07) | DRG 420 ==
LOC: EC 14:04 → 2SICU 15:37 → 5NMEDONC 07-10 07:43 → 3SCARD 07-10 13:29
PROVIDERS: ADMIT Family Medicine; ATTEND Family Medicine
DX: E10.10 Type 1 diabetes mellitus with ketoacidosis without coma (principal); E10.43 Type 1 diabetes mellitus with diabetic autonomic (poly)neuropathy; E87.5 Hyperkalemia; F17.200 Nicotine dependence, unspecified, uncomplicated; F32.A Depression, unspecified; R11.0 Nausea; K31.84 Gastroparesis; N17.9 Acute kidney failure, unspecified; E86.0 Dehydration; Z53.29 Procedure and treatment not carried out because of patient's decision for other reasons; T38.3X6A Underdosing of insulin and oral hypoglycemic [antidiabetic] drugs, initial encounter; Z91.128 Patient's intentional underdosing of medication regimen for other reason; F41.9 Anxiety disorder, unspecified; Z79.4 Long term (current) use of insulin; Z79.899 Other long term (current) drug therapy; Z91.199 Patient's noncompliance with other medical treatment and regimen due to unspecified reason; Z82.49 Family history of ischemic heart disease and other diseases of the circulatory system
CPT/HCPCS: 36415; 80048; 80051; 80053; 81003; 82009; 82565; 82803; 82947; 83605; 83690; 83735; 84100; 84520; 85025; 93005; 96361; 96365; 96366; 96375; 99291

== ENCOUNTER 2023-07-18 12:48 | Inpatient (IN) | payer OTHER ==
[2023-07-18 13:13] LABS: Glucose,Whole Blood 524 mg/dL (70-110)
[2023-07-18 13:33] LABS: Anisocytosis Slight; Basophils # (A) 0.1 k/uL (0-0.2); Basophils % (A) 1 %; Eosinophils # (A) 0.1 k/uL (0-0.7); Eosinophils % (A) 1 %; HCT 40.8 % (39.0-53.0); HGB 11.7 gm/dL (13.0-17.5); Hypochromasia Marked; Lymphocytes # (A) 1.8 k/uL (1.0-4.8); Lymphocytes % (A) 18 %; MCHC 28.8 g/dL (31.0-37.0); Macrocytosis Slight; Mean Platelet Volume 7.7; Monocytes # (A) 0.3 k/uL (0-1.0); Monocytes % (A) 3 %; Neutrophils # (A) 7.3 k/uL (1.3-7.7); Neutrophils % (A) 76 %; Platelet Count 443 k/uL (150-450); RBC 4.19 m/uL (4.30-5.90); VBG PH 7.13 (7.31-7.41); WBC 9.6 k/uL (3.8-10.6)
[2023-07-18] MEDS: ONDANSETRON 4 MG/2 ML VIAL IVP STA (13:38)
[2023-07-18 13:42] LABS: INR 0.9 (<1.2); Partial Thromboplastin Time 22.5 sec (22.0-30.0); Prothrombin Time 10.3 sec (10.0-12.5)
[2023-07-18] MEDS: ALBUTEROL NEB (CONC) 2.5 MG/0.5 ML INHALATION ONE (13:43)
[2023-07-18 13:44] LABS: MCV 97.3 fL (80.0-100.0)
[2023-07-18] MEDS: SODIUM BICARB 8.4% 50 ML SYR (1 MEQ/ML) IV ONE ×2 (13:44→13:45)
[2023-07-18] MEDS: SODIUM CHLORIDE 0.9% 1,000 ML IV STA ×2 (13:46→14:24)
[2023-07-18] MEDS: SODIUM ZIRCONIUM CYCLOSILICATE 10 GM PACKET PO ONE (13:47)
[2023-07-18] MEDS: INSULIN REGULAR 100 UNIT/ML VIAL (IV) IV ONE (13:49)
[2023-07-18] MEDS: CALCIUM GLUCONATE IN NACL 1 GM in SALINE 1 100ML.BAG IVPB ONE (13:51)
[2023-07-18 13:56] LABS: ALT 37 U/L (4-49); AST 22 U/L (17-59); African American GFR (CKD) >90 (>60 ml/min/1.73 sqM); Albumin 4.7 g/dL (3.5-5.0); Alkaline Phosphatase 130 U/L (38-126); Amylase 72 U/L (30-110); Blood Urea Nitrogen 30 mg/dL (9-20); Calcium 9.5 mg/dL (8.4-10.2); Lipase 193 U/L (23-300); Non-African American GFR(CKD) >90 (>60 ml/min/1.73 sqM); Potassium 5.4 mmol/L (3.5-5.1); Sodium 141 mmol/L (137-145); Total Bilirubin 0.5 mg/dL (0.2-1.3)
[2023-07-18 14:06] LABS: Chloride 104 mmol/L (98-107)
[2023-07-18 14:07] LABS: Carbon Dioxide <5 mmol/L (22-30); Glucose 617 mg/dL (74-99)
[2023-07-18] MEDS ORDERED: Potassium Replacement Protocol 1 EACH MISC MISCELLANE PRN (14:15)
[2023-07-18] MEDS ORDERED: DEXTROSE 50% SYRINGE 50 ML IVP PRN ×2 (14:15)
[2023-07-18] MEDS ORDERED: Magnesium Replacement Protocol 1 EACH MISC MISCELLANE PRN (14:15)
[2023-07-18] MEDS: FUROSEMIDE 10 MG/ML 4 ML VIAL IV STA (14:23)
[2023-07-18] MEDS ORDERED: KETOROLAC 15 MG/ML 1 ML VIAL IVP PRN (14:27)
[2023-07-18] MEDS ORDERED: ONDANSETRON 4 MG/2 ML VIAL IVP PRN (14:27)
[2023-07-18] MEDS ORDERED: NALOXONE 0.4 MG/ML 1 ML VIAL IV PRN (14:27)
[2023-07-18] MEDS: INSULIN REGULAR 100 UNIT in SODIUM CHLORIDE 0.9% 100 ML IV SCH (14:48)
[2023-07-18] MEDS: SODIUM CHLORIDE 0.9% 1,000 ML IV SCH ×2 (14:48→14:55)
[2023-07-18 14:52] LABS: Glucose,Whole Blood 462 mg/dL (70-110)
[2023-07-18] MEDS: INSULIN REGULAR BOLUS (FROM DRIP BAG) IV ONE (14:54)
--- NOTE | 2023-07-18 15:01 | ED ---
General Adult HPI - General Chief complaint: Nausea/Vomiting/Diarrhea Stated complaint: DKA Time Seen by Provider: 07/18/23 12:55 Source: patient, EMS, RN notes reviewed, old records reviewed Mode of arrival: EMS - History of Present Illness Initial comments: Patient is a 27-year-old male well-known to our emergency department complaining of nausea, vomiting, high blood sugars. Presents for him at home. Recurrently presents for DKA. Has a history of insulin-dependent diabetes. States he has not been using his medications at home. Denies any fevers, chills. Endorses ch ronic abdominal pain. Denies cough. Presents for further evaluation at this time. Endorses nausea but no emesis. Denies diarrhea. Denies any known sick contacts. - Related Data Home Medications Medication Instructions Recorded Confirmed Insulin Detemir (Levemir) [Levemir] 30 unit SQ HS 03/07/23 07/18/23 Ergocalciferol [Vitamin D2 (1250 1,250 mcg PO Q30D 04/29/23 07/18/23 Mcg = 11017 Iu)] Famotidine [Pepcid] 20 mg PO BID 04/29/23 07/18/23 Gabapentin 600 mg PO TID 04/29/23 07/18/23 Insulin Lispro [Insulin Lispro 7 units SQ AC-TID 04/29/23 07/18/23 Kwikpen U-100] Losartan Potassium 50 mg PO DAILY 04/29/23 07/18/23 Mirtazapine 7.5 mg PO HS 04/29/23 07/18/23 Allergies Allergy/AdvReac Type Severity Reaction Status Date / Time No Known Allergies Allergy Verified 07/18/23 15:21 Review of Systems ROS Statement: Those systems with pertinent positive or pertinent negative responses have been documented in the HPI. Review of Systems: CONST: Denies fever EYES: Denies blurry vision ENT: Denies nasal congestion C/V: Denies Chest pain RESP: Denies shortness of breath GI: Endorses nausea, chronic abdominal pain. : Denies dysuria SKIN: Denies rash. MSK: Denies joint pain. NEURO: Denies headache ROS Other: All systems not noted in ROS Statement are negative. Past Medical History Past Medical History: Asthma, Diabetes Mellitus, Neurologic Disorder, Skin Disorder Additional Past Medical History / Comment(s): IDDM type I, neuropathy bilateral feet, DKA, eczema. History of Any Multi-Drug Resistant Organisms: None Reported Past Surgical History: Adenoidectomy Additional Past Surgical History / Comment(s): 2002 Recent EGD- gastritis Past Anesthesia/Blood Transfusion Reactions: No Reported Reaction Past Psychological History: Anxiety, Depression Smoking Status: Current every day smoker Past Alcohol Use History: None Reported Past Drug Use History: Marijuana - Past Family History Mother Family Medical History: CVA/TIA Additional Family Medical History / Comment(s): TIA Father Family Medical History: Hyperlipidemia, Hypertension Additional Family Medical History / Comment(s): . General Exam - General Exam Comments Initial Comments: General: Appears dehydrated. HEAD: Normal with no signs of head trauma. EYES: PERRLA, EOMI, conjunctiva normal, no discharge. ENT: Hearing grossly intact, normal oropharynx. Dry mucous membranes. RESPIRATORY: Clear breath sounds bilaterally. No wheezes, rales, or rhonchi. C/V: Tachycardic with regular rhythm, S1 and S2 auscultated, no edema, peripheral pulses 2+ and intact throughout ABD: Abdomen soft, nondistended. Mildly tender to palpation epigastric region with no guarding, peritoneal signs, rebound tenderness. EXT: Normal range of motion, no obvious deformity SKIN: No rashes or lesions observed on exposed skin. NEURO: Alert and oriented x 4. Course Vital Signs 07/18/23 07/18/23 07/18/23 13:04 13:44 13:58 Temperature 97.1 F L Pulse Rate 124 H 124 H 126 H Respiratory 18 Rate Blood Pressure 94/57 O2 Sat by Pulse 100 Oximetry 07/18/23 07/18/23 07/18/23 14:55 18:00 19:48 Temperature 97.9 F Pulse Rate 112 H 121 H 125 H Respiratory 12 18 16 Rate Blood Pressure 91/50 113/75 96/58 O2 Sat by Pulse 96 100 100 Oximetry Medical Decision Making - Medical Decision Making Was pt. sent in by a medical professional or institution (, JAS, BLEACH PLANT OPERATOR, urgent care, hospital, or care home...) When possible be specific @ -No Did you speak to anyone other than the patient for history (EMS, parent, family, police, friend...)? What history was obtained from this source @ -No Did you review nursing and triage notes (agree or disagree)? Why? @ -I reviewed and agree with nursing and triage notes Were old charts reviewed (outside hosp., previous admission, EMS record, old EKG, old radiological studies, urgent care reports/EKG's, care home records)? Report findings @ -Old charts reviewed Differential Diagnosis (chest pain, altered mental status, abdominal pain women, abdominal pain men, vaginal bleeding, weakness, fever, dyspnea, syncope, h eadache, dizziness, GI bleed, back pain, seizure, CVA, palpatations, mental health, musculoskeletal)? @ -Differential Weakness: Hypoglycemia, shock, sepsis, hyponatremia, anemia, infection, OR, ETOH, adverse medicine reaction, overdose, stroke, this is not meant to be an all-inclusive list. EKG interpreted by me (3pts min.). @ -As above X-rays interpreted by me (1pt min.). @ -None done CT interpreted by me (1pt min.). @ -None done U/S interpreted by me (1pt. min.). @ -None done What testing was considered but not performed or refused? (CT, X-rays, U/S, labs)? Why? @ -None What meds were considered but not given or refused? Why? @ -None Did you discuss the management of the patient with other professionals (professionals i.e. , PA, BLEACH PLANT OPERATOR, lab, RT, psych nurse, social research assistant, electrical automation engineer, teacher, enforcement safety officer, case manager specialist)? Give summary @ -I discussed with patient's PCP Dr. Valenzuela who is in agreement plan for admission and management. I did speak with Dr. Gonzalez of the intensive care unit who was in agreement with the plan for stepdown admission. Does not believe that patient meets ICU criteria at this time. Was smoking cessation discussed for >3mins.? @ -No Was critical care preformed (if so, how long)? @ -Yes, 37 minutes. Were there social determinants of health that impacted care today? How? (Homelessness, low income, unemployed, alcoholism, drug addiction, transp ortation, low edu. Level, literacy, decrease access to med. care, half-way, rehab)? @ -No Was there de-escalation of care discussed even if they declined (Discuss DNR or withdrawal of care, Hospice)? DNR status @ -No What co-morbidities impacted this encounter? (DM, HTN, Smoking, COPD, CAD, Cancer, CVA, ARF, Chemo, Hep., AIDS, mental health diagnosis, sleep apnea, morbid obesity)? @ -Insulin-dependent diabetes Was patient admitted / discharged? Hospital course, mention meds given and route, prescriptions, significant lab abnormalities, going to OR and other pertinent info. @ -Based on patient's presentation and physical exam, presents with what appears to be DKA. Endorses his typical symptoms because of it. Blood sugars were reading high in the field. He has received 1 L fluid bolus from EMS. Vital signs remarkable for tachycardia. We will obtain DKA workup. Patient will be administered additional IV fluid boluses as well as started on maintenance fluids and given antiemetics. Patient in agreement this plan. Vital signs remarkable for tachycardia. EKG shows signs of hyperkalemia. Therefore patient will be administered hyperkalemia cocktail including calcium, insulin, albuterol, Lokelma. Patient's EKG shows sinus tachycardia other as well. Laboratory studies remarkable for chronic anemia, a VBG that reveals a metabolic acidosis, hyperkalemia 5.4, carbon dioxide less than 5, hyperglycemia. Acetone positive. Urine is still pending. Patient appears to be in DKA. Patient was started on DKA protocol. Patient in agreement this plan. This includes insulin drip. I spoke with Dr. Valenzuela the patient's PCP who accepted the admission and was in agreement the plan. Patient admitted to stepdown. Undiagnosed new problem with uncertain prognosis? @ -No Drug Therapy requiring intensive monitoring for toxicity (Heparin, Nitro, Insulin, Cardizem)? @ -Insulin drip Were any procedures done? @ -No Diagnosis/symptom? @ -DKA, hyperkalemia Acute, or Chronic, or Acute on Chronic? @ -Acute Uncomplicated (without systemic symptoms) or Complicated (systemic symptoms)? @ -Complicated Side effects of treatment? @ -No Exacerbation, Progression, or Severe Exacerbation? @ -No Poses a threat to life or bodily function? How? (Chest pain, USA, OR, pneumonia, PE, COPD, DKA, ARF, appy, cholecystitis, CVA, Diverticulitis, Homicidal, Suicidal, threat to staff... and all critical care pts) @ -Yes - Lab Data Result diagrams: 07/18/23 13:15 07/18/23 19:42 Lab Results 07/18/23 07/18/23 07/18/23 Range/Units 13:11 13:15 13:15 WBC 9.6 (3.8-10.6) k/uL RBC 4.19 L (4.30-5.90) m/uL Hgb 11.7 L (13.0-17.5) gm/dL Hct 40.8 (39.0-53.0) % MCV 97.3 D (80.0-100.0) fL MCH 28.0 (25.0-35.0) pg MCHC 28.8 L (31.0-37.0) g/dL RDW 17.0 H (11.5-15.5) % Plt Count 443 (150-450) k/uL MPV 7.7 Neutrophils % 76 % Lymphocytes % 18 % Monocytes % 3 % Eosinophils % 1 % Basophils % 1 % Neutrophils # 7.3 (1.3-7.7) k/uL Lymphocytes # 1.8 (1.0-4.8) k/uL Monocytes # 0.3 (0-1.0) k/uL Eosinophils # 0.1 (0-0.7) k/uL Basophils # 0.1 (0-0.2) k/uL Hypochromasia Marked Anisocytosis Slight Macrocytosis Slight PT 10.3 (10.0-12.5) sec INR 0.9 (<1.2) APTT 22.5 (22.0-30.0) sec VBG pH (7.31-7.41) VBG pCO2 (37-51) mmHg VBG HCO3 (24-28) mmol/L Sodium (137-145) mmol/L Potassium (3.5-5.1) mmol/L Chloride (98-107) mmol/L Carbon Dioxide (22-30) mmol/L Anion Gap mmol/L BUN (9-20) mg/dL Creatinine (0.66-1.25) mg/dL Est GFR (CKD-EPI)AfAm (>60 ml/min/1.73 sqM) Est GFR (CKD-EPI)NonAf (>60 ml/min/1.73 sqM) Glucose (74-99) mg/dL POC Glucose (mg/dL) 524 H (70-110) mg/dL POC Glu Coat Checker ID Selena Fofana Plasma Lactic Acid Len (0.7-2.0) mmol/L Calcium (8.4-10.2) mg/dL Total Bilirubin (0.2-1.3) mg/dL AST (17-59) U/L ALT (4-49) U/L Alkaline Phosphatase (38-126) U/L Total Protein (6.3-8.2) g/dL Albumin (3.5-5.0) g/dL Amylase (30-110) U/L Lipase (23-300) U/L Urine Color Urine Appearance (Clear) Urine pH (5.0-8.0) Ur Specific [place] (1.001-1.035) Urine Protein (Negative) Urine Glucose (UA) (Negative) Urine Ketones (Negative) Urine Blood (Negative) Urine Nitrite (Negative) Urine Bilirubin (Negative) Urine Urobilinogen (<2.0) mg/dL Ur Leukocyte Esterase (Negative) Acetone, Qual (Negative) Influenza Type A (PCR) (Not Detectd) Influenza Type B (PCR) (Not Detectd) RSV (PCR) (Not Detectd) SARS-CoV-2 (PCR) (Not Detectd) 07/18/23 07/18/23 07/18/23 Range/Units 13:15 13:15 13:15 WBC (3.8-10.6) k/uL RBC (4.30-5.90) m/uL Hgb (13.0-17.5) gm/dL Hct (39.0-53.0) % MCV (80.0-100.0) fL MCH (25.0-35.0) pg MCHC (31.0-37.0) g/dL RDW (11.5-15.5) % Plt Count (150-450) k/uL MPV Neutrophils % % Lymphocytes % % Monocytes % % Eosinophils % % Basophils % % Neutrophils # (1.3-7.7) k/uL Lymphocytes # (1.0-4.8) k/uL Monocytes # (0-1.0) k/uL Eosinophils # (0-0.7) k/uL Basophils # (0-0.2) k/uL Hypochromasia Anisocytosis Macrocytosis PT (10.0-12.5) sec INR (<1.2) APTT (22.0-30.0) sec VBG pH (7.31-7.41) VBG pCO2 (37-51) mmHg VBG HCO3 (24-28) mmol/L Sodium 141 (137-145) mmol/L Potassium 5.4 H (3.5-5.1) mmol/L Chloride 104 (98-107) mmol/L Carbon Dioxide <5 L* (22-30) mmol/L Anion Gap mmol/L BUN 30 H (9-20) mg/dL Creatinine 1.05 (0.66-1.25) mg/dL Est GFR (CKD-EPI)AfAm >90 (>60 ml/min/1.73 sqM) Est GFR (CKD-EPI)NonAf >90 (>60 ml/min/1.73 sqM) Glucose 617 H* (74-99) mg/dL POC Glucose (mg/dL) (70-110) mg/dL POC Glu Coat Checker ID Plasma Lactic Acid Len 1.9 (0.7-2.0) mmol/L Calcium 9.5 (8.4-10.2) mg/dL Total Bilirubin 0.5 (0.2-1.3) mg/dL AST 22 (17-59) U/L ALT 37 (4-49) U/L Alkaline Phosphatase 130 H (38-126) U/L Total Protein 7.0 (6.3-8.2) g/dL Albumin 4.7 (3.5-5.0) g/dL Amylase 72 (30-110) U/L Lipase 193 (23-300) U/L Urine Color Colorless Urine Appearance Clear (Clear) Urine pH 5.0 (5.0-8.0) Ur Specific [place] 1.020 (1.001-1.035) Urine Protein Negative (Negative) Urine Glucose (UA) 4+ H (Negative) Urine Ketones 4+ H (Negative) Urine Blood Negative (Negative) Urine Nitrite Negative (Negative) Urine Bilirubin Negative (Negative) Urine Urobilinogen <2.0 (<2.0) mg/dL Ur Leukocyte Esterase Negative (Negative) Acetone, Qual Positive (Negative) Influenza Type A (PCR) (Not Detectd) Influenza Type B (PCR) (Not Detectd) RSV (PCR) (Not Detectd) SARS-CoV-2 (PCR) (Not Detectd) 07/18/23 07/18/23 Range/Units 13:15 13:15 WBC (3.8-10.6) k/uL RBC (4.30-5.90) m/uL Hgb (13.0-17.5) gm/dL Hct (39.0-53.0) % MCV (80.0-100.0) fL MCH (25.0-35.0) pg MCHC (31.0-37.0) g/dL RDW (11.5-15.5) % Plt Count (150-450) k/uL MPV Neutrophils % % Lymphocytes % % Monocytes % % Eosinophils % % Basophils % % Neutrophils # (1.3-7.7) k/uL Lymphocytes # (1.0-4.8) k/uL Monocytes # (0-1.0) k/uL Eosinophils # (0-0.7) k/uL Basophils # (0-0.2) k/uL Hypochromasia Anisocytosis Macrocytosis PT (10.0-12.5) sec INR (<1.2) APTT (22.0-30.0) sec VBG pH 7.13 L* (7.31-7.41) VBG pCO2 21 L (37-51) mmHg VBG HCO3 7 L* (24-28) mmol/L Sodium (137-145) mmol/L Potassium (3.5-5.1) mmol/L Chloride (98-107) mmol/L Carbon Dioxide (22-30) mmol/L Anion Gap mmol/L BUN (9-20) mg/dL Creatinine (0.66-1.25) mg/dL Est GFR (CKD-EPI)AfAm (>60 ml/min/1.73 sqM) Est GFR (CKD-EPI)NonAf (>60 ml/min/1.73 sqM) Glucose (74-99) mg/dL POC Glucose (mg/dL) (70-110) mg/dL POC Glu Coat Checker ID Plasma Lactic Acid Len (0.7-2.0) mmol/L Calcium (8.4-10.2) mg/dL Total Bilirubin (0.2-1.3) mg/dL AST (17-59) U/L ALT (4-49) U/L Alkaline Phosphatase (38-126) U/L Total Protein (6.3-8.2) g/dL Albumin (3.5-5.0) g/dL Amylase (30-110) U/L Lipase (23-300) U/L Urine Color Urine Appearance (Clear) Urine pH (5.0-8.0) Ur Specific [place] (1.001-1.035) Urine Protein (Negative) Urine Glucose (UA) (Negative) Urine Ketones (Negative) Urine Blood (Negative) Urine Nitrite (Negative) Urine Bilirubin (Negative) Urine Urobilinogen (<2.0) mg/dL Ur Leukocyte Esterase (Negative) Acetone, Qual (Negative) Influenza Type A (PCR) Not Detected (Not Detectd) Influenza Type B (PCR) Not Detected (Not Detectd) RSV (PCR) Not Detected (Not Detectd) SARS-CoV-2 (PCR) Not Detected (Not Detectd) - EKG Data -: EKG Interpreted by Me EKG Comments: 12-lead Electrocardiogram Interpretation Note EKG was reviewed and interpreted by myself. 12-lead ECG performed at 1314 is interpreted by me as revealing sinus tachycardia at a rate of 123 beats per jake te. Right axis deviation. MT interval is 176 ms, QRS duration is 96 ms, QTc is 395 ms. Patient has T wave peaking concerning for hyperkalemia.. There were no ST or T wave abnormalities to suggest myocardial ischemia or injury. R wave progression across the precordium was satisfactory. By my interpretation this EKG is non-diagnostic for acute ischemia. Critical Care Time Critical Care Time: Yes Total Critical Care Time: 37 Disposition Clinical Impression: DKA (diabetic ketoacidosis), Hyperkalemia Disposition: ADMITTED IP TO THIS [facility] Condition: Serious Time of Disposition: 14:25
[2023-07-18 15:13] LABS: Appearance,Urine Clear (Clear); Bilirubin,Urine Negative (Negative); Blood,Urine Negative (Negative); Color,Urine Colorless; Glucose,Urine (UA) 4+ (Negative); Leukocyte Esterase,Urine Negative (Negative); Nitrite,Urine Negative (Negative); Protein,Urine Negative (Negative); Urobilinogen,Urine <2.0 mg/dL (<2.0)
[2023-07-18 15:20] LABS: Ketones,Urine 4+ (Negative)
[2023-07-18 15:55] LABS: Glucose,Whole Blood 371 mg/dL (70-110)
[2023-07-18 16:51] LABS: Glucose,Whole Blood 313 mg/dL (70-110)
[2023-07-18 17:03] LABS: African American GFR (CKD) >90 (>60 ml/min/1.73 sqM); Anion Gap 25 mmol/L; Blood Urea Nitrogen 29 mg/dL (9-20); Chloride 113 mmol/L (98-107); Glucose 355 mg/dL (74-99); Non-African American GFR(CKD) >90 (>60 ml/min/1.73 sqM); Phosphorus 3.2 mg/dL (2.5-4.5); Potassium 4.3 mmol/L (3.5-5.1); Sodium 147 mmol/L (137-145)
[2023-07-18 17:04] LABS: Carbon Dioxide 9 mmol/L (22-30)
[2023-07-18] MEDS: HEPARIN SODIUM,PORCINE 5,000 UNIT/ML 1 ML VIAL SQ SCH (17:04)
[2023-07-18 17:57] LABS: Glucose,Whole Blood 218 mg/dL (70-110)
[2023-07-18] MEDS: D5-0.45% NACL WITH KCL 20MEQ/L 1,000 ML IV SCH (18:10)
[2023-07-18 18:59] LABS: Glucose,Whole Blood 207 mg/dL (70-110)
[2023-07-18 20:11] LABS: African American GFR (CKD) >90 (>60 ml/min/1.73 sqM); Anion Gap 14 mmol/L; Blood Urea Nitrogen 29 mg/dL (9-20); Carbon Dioxide 19 mmol/L (22-30); Chloride 115 mmol/L (98-107); Glucose 183 mg/dL (74-99); Non-African American GFR(CKD) >90 (>60 ml/min/1.73 sqM); Phosphorus 2.8 mg/dL (2.5-4.5); Potassium 4.4 mmol/L (3.5-5.1); Sodium 148 mmol/L (137-145)
[2023-07-18 20:35] LABS: Glucose,Whole Blood 148 mg/dL (70-110)
--- NOTE | 2023-07-18 20:55 | HP ---
HISTORY AND PHYSICAL CHIEF COMPLAINT: DKA. HISTORY OF PRESENT ILLNESS: This is another admission for this 27-year-old white male who repeatedly comes into the hospital and was treated for DKA and then goes home and does not take his insulin. He is back again. Blood sugar is 580 with a pH of 7.13 and a bicarb of 7. REVIEW OF SYSTEMS: Normal otherwise. Past medical history, family history, and personal and social histories are all unchanged. PHYSICAL EXAMINATION: VITAL SIGNS: Normal. GENERAL: He is dehydrated. CHEST: Clear. CARDIAC: Normal. ABDOMEN: Soft, nontender. IMPRESSION: 1. Diabetic ketoacidosis. 2. Uncontrolled type 1 insulin-dependent diabetes mellitus. 3. Noncompliant patient. 4. Depression. PLAN: 1. Bedrest. 2. IV fluids. 3. Insulin management to bring his blood sugars under control. MMODL / IJN: [id number] /
[2023-07-18 21:41] LABS: Glucose,Whole Blood 146 mg/dL (70-110)
[2023-07-18 22:42] LABS: Glucose,Whole Blood 134 mg/dL (70-110)
[2023-07-19 00:11] LABS: Glucose,Whole Blood 148 mg/dL (70-110)
[2023-07-19 01:01] LABS: Glucose,Whole Blood 159 mg/dL (70-110)
[2023-07-19 01:28] LABS: African American GFR (CKD) >90 (>60 ml/min/1.73 sqM); Anion Gap 12 mmol/L; Blood Urea Nitrogen 25 mg/dL (9-20); Calcium 8.6 mg/dL (8.4-10.2); Carbon Dioxide 21 mmol/L (22-30); Chloride 109 mmol/L (98-107); Glucose 164 mg/dL (74-99); Non-African American GFR(CKD) >90 (>60 ml/min/1.73 sqM); Potassium 4.3 mmol/L (3.5-5.1); Sodium 142 mmol/L (137-145)
[2023-07-19 02:09] LABS: Glucose,Whole Blood 199 mg/dL (70-110)
[2023-07-19 03:21] LABS: Glucose,Whole Blood 245 mg/dL (70-110)
[2023-07-19 04:03] LABS: Glucose,Whole Blood 295 mg/dL (70-110)
[2023-07-19 05:28] LABS: Glucose,Whole Blood 282 mg/dL (70-110)
[2023-07-19 06:08] LABS: Glucose,Whole Blood 243 mg/dL (70-110)
[2023-07-19 07:15] LABS: Glucose,Whole Blood 212 mg/dL (70-110)
[2023-07-19 08:13] LABS: Glucose,Whole Blood 211 mg/dL (70-110)
[2023-07-19 08:32] LABS: Anisocytosis Slight; Basophils # (A) 0.1 k/uL (0-0.2); Basophils % (A) 1 %; Eosinophils # (A) 0.1 k/uL (0-0.7); Eosinophils % (A) 1 %; HCT 32.1 % (39.0-53.0); HGB 10.2 gm/dL (13.0-17.5); Hypochromasia Slight; Lymphocytes # (A) 3.2 k/uL (1.0-4.8); Lymphocytes % (A) 22 %; MCH 28.3 pg (25.0-35.0); MCHC 31.7 g/dL (31.0-37.0); Mean Platelet Volume 7.1; Monocytes # (A) 0.9 k/uL (0-1.0); Monocytes % (A) 6 %; Neutrophils % (A) 69 %; Platelet Count 424 k/uL (150-450); RDW 17.8 % (11.5-15.5); WBC 14.4 k/uL (3.8-10.6)
[2023-07-19 08:38] LABS: MCV 89.4 fL (80.0-100.0)
[2023-07-19 08:40] LABS: African American GFR (CKD) >90 (>60 ml/min/1.73 sqM); Anion Gap 11 mmol/L; Blood Urea Nitrogen 21 mg/dL (9-20); Calcium 8.6 mg/dL (8.4-10.2); Carbon Dioxide 20 mmol/L (22-30); Chloride 105 mmol/L (98-107); Glucose 213 mg/dL (74-99); Non-African American GFR(CKD) >90 (>60 ml/min/1.73 sqM); Potassium 4.3 mmol/L (3.5-5.1); Sodium 136 mmol/L (137-145)
[2023-07-19 09:19] LABS: Glucose,Whole Blood 212 mg/dL (70-110)
[2023-07-19 10:15] LABS: Glucose,Whole Blood 218 mg/dL (70-110)
[2023-07-19 11:07] LABS: Glucose,Whole Blood 168 mg/dL (70-110)
[2023-07-19 12:14] LABS: Glucose,Whole Blood 158 mg/dL (70-110)
--- NOTE | 2023-07-19 12:45 | PN ---
PROGRESS NOTE DATE OF SERVICE: 07/19/2023 CHIEF COMPLAINT: DKA. HISTORY OF PRESENT ILLNESS: This gentleman is doing better. Blood sugars are coming down. He is not nauseated or vomiting. PHYSICAL EXAMINATION: CHEST: Clear. CARDIAC: Normal. ABDOMEN: Soft, nontender. IMPRESSION: 1. Diabetic ketoacidosis. 2. Dehydration. 3. Depression. PLAN: Continue the management of his blood sugars. MMODL / IJN: [id number] /
[2023-07-19 13:13] LABS: Glucose,Whole Blood 175 mg/dL (70-110)
[2023-07-19 13:29] VITALS: BMI 16.3
[2023-07-19 13:52] LABS: Chloride 101 mmol/L (98-107)
[2023-07-19 13:54] LABS: African American GFR (CKD) >90 (>60 ml/min/1.73 sqM); Anion Gap 11 mmol/L; Blood Urea Nitrogen 17 mg/dL (9-20); Calcium 8.6 mg/dL (8.4-10.2); Carbon Dioxide 17 mmol/L (22-30); Glucose 176 mg/dL (74-99); Non-African American GFR(CKD) >90 (>60 ml/min/1.73 sqM); Phosphorus 2.7 mg/dL (2.5-4.5); Potassium 4.6 mmol/L (3.5-5.1); Sodium 129 mmol/L (137-145)
[2023-07-19 14:09] LABS: Glucose,Whole Blood 164 mg/dL (70-110)
[2023-07-19 15:34] LABS: Glucose,Whole Blood 212 mg/dL (70-110)
[2023-07-19 16:23] LABS: Glucose,Whole Blood 189 mg/dL (70-110)
[2023-07-19 17:17] LABS: Glucose,Whole Blood 211 mg/dL (70-110)
[2023-07-19 18:19] LABS: African American GFR (CKD) >90 (>60 ml/min/1.73 sqM); Anion Gap 7 mmol/L; Blood Urea Nitrogen 13 mg/dL (9-20); Calcium 8.4 mg/dL (8.4-10.2); Carbon Dioxide 25 mmol/L (22-30); Chloride 98 mmol/L (98-107); Glucose 211 mg/dL (74-99); Non-African American GFR(CKD) >90 (>60 ml/min/1.73 sqM); Phosphorus 2.3 mg/dL (2.5-4.5); Potassium 4.5 mmol/L (3.5-5.1); Sodium 130 mmol/L (137-145)
[2023-07-19 18:32] LABS: Glucose,Whole Blood 206 mg/dL (70-110)
[2023-07-19] MEDS: INSULIN ASPART (NovoLOG) 100 UNIT/ML VIAL SQ STA (18:48)
[2023-07-19 20:05] LABS: Glucose,Whole Blood 141 mg/dL (70-110)
[2023-07-19] MEDS: INSULIN ASPART (NovoLOG) 100 UNIT/ML VIAL SQ SCH (20:10)
[2023-07-19] MEDS: INSULIN DETEMIR (LEVEMIR) 100 UNIT/ML SYR SQ SCH (20:59)
[2023-07-20 02:57] LABS: Glucose,Whole Blood 87 mg/dL (70-110)
[2023-07-20 04:50] LABS: Glucose,Whole Blood 66 mg/dL (70-110)
[2023-07-20 05:33] LABS: Glucose,Whole Blood 129 mg/dL (70-110)
[2023-07-20 06:37] LABS: African American GFR (CKD) >90 (>60 ml/min/1.73 sqM); Anion Gap 8 mmol/L; Blood Urea Nitrogen 6 mg/dL (9-20); Calcium 8.4 mg/dL (8.4-10.2); Carbon Dioxide 24 mmol/L (22-30); Chloride 101 mmol/L (98-107); Glucose 136 mg/dL (74-99); Non-African American GFR(CKD) >90 (>60 ml/min/1.73 sqM); Phosphorus 3.2 mg/dL (2.5-4.5); Potassium 4.1 mmol/L (3.5-5.1); Sodium 133 mmol/L (137-145)
[2023-07-20 08:41] VITALS: RESP 15
[2023-07-20] MEDS: INSULIN ASPART (NovoLOG) 100 UNIT/ML VIAL SQ SCH (08:49)
[2023-07-20 11:57] LABS: Glucose,Whole Blood 91 mg/dL (70-110)
[2023-07-20 15:13] VITALS: BP 114/76; PULSE 99; TEMP 98.3
--- NOTE | 2023-07-21 07:43 | DS ---
DISCHARGE SUMMARY CHIEF COMPLAINT: DKA. HISTORY OF PRESENT ILLNESS AND PHYSICAL EXAMINATION: Details of this young man's history and physical can be found in the initial workup. LABORATORY STUDIES: While he is in the hospital, he had laboratory studies, details of which can be found in the laboratory section of his chart. COURSE IN THE HOSPITAL: After admission, he was placed bedrest on intravenous fluids and blood sugars were brought down under good control. He had no nausea or vomiting. It was felt that he could be discharged on the , and he will go home on his usual activity, diet, medication. FINAL DIAGNOSES: 1. Diabetic ketoacidosis. 2. Depression. 3. Uncontrolled type 1 insulin-dependent diabetes mellitus. 4. Noncompliant patient. 5. Gastroparesis. 6. Diabetic neuropathy. OPERATIONS: None. CONSULTATION: None. He is improved. MMODL / IJN: [id number] /
== END 2023-07-20 14:45 | disposition home or self-care (01) | DRG 420 ==
LOC: EC 12:48 → 3SCARD 14:28 → 4SSUR 07-19 22:37
PROVIDERS: ADMIT Family Medicine; ATTEND Family Medicine
DX: E10.10 Type 1 diabetes mellitus with ketoacidosis without coma (principal); E10.42 Type 1 diabetes mellitus with diabetic polyneuropathy; F32.A Depression, unspecified; Z11.52 Encounter for screening for COVID-19; E10.43 Type 1 diabetes mellitus with diabetic autonomic (poly)neuropathy; E86.0 Dehydration; E87.1 Hypo-osmolality and hyponatremia; E87.5 Hyperkalemia; R00.0 Tachycardia, unspecified; D64.9 Anemia, unspecified; F17.210 Nicotine dependence, cigarettes, uncomplicated; G89.29 Other chronic pain; L30.9 Dermatitis, unspecified; Z79.4 Long term (current) use of insulin; Z79.899 Other long term (current) drug therapy; K31.84 Gastroparesis; Z82.49 Family history of ischemic heart disease and other diseases of the circulatory system; Z91.199 Patient's noncompliance with other medical treatment and regimen due to unspecified reason
CPT/HCPCS: 36415; 80048; 80051; 80053; 81003; 82009; 82150; 82565; 82803; 82947; 83605; 83690; 84100; 84520; 85025; 85610; 85730; 87636; 93005; 94640; 96361; 96374; 96375; 99291

== ENCOUNTER 2023-07-22 07:35 | Inpatient (IN) | payer OTHER ==
[2023-07-22] MEDS: ONDANSETRON 4 MG/2 ML VIAL IVP STA (08:03)
[2023-07-22] MEDS: PANTOPRAZOLE 40 MG/10 ML VIAL IVP STA (08:05)
--- NOTE | 2023-07-22 08:05 | ED ---
General Adult HPI - General Chief complaint: Recheck/Abnormal Lab/Rx Stated complaint: DKA Time Seen by Provider: 07/22/23 07:36 Source: patient, EMS, RN notes reviewed, old records reviewed Mode of arrival: EMS Limitations: no limitations - History of Present Illness Initial comments: Patient is a 27-year-old male well-known to our emergency department who presents to the emergency department for nausea, vomiting, as well as suspected DKA and high blood sugars. I recently admitted the patient for similar complaints. He is a frequent visitor to our department for similar complaints. He is presenting as he typically presents, complaining of nonspecific abdominal pain, nausea and vomiting. He appears dehydrated. States his sugar was high at home. Is unable to provide much else information due to vomiting. Presents for further evaluation at this time. - Related Data Home Medications Medication Instructions Recorded Confirmed Insulin Detemir (Levemir) [Levemir] 30 unit SQ HS 03/07/23 07/22/23 Ergocalciferol [Vitamin D2 (1250 1,250 mcg PO Q30D 04/29/23 07/22/23 Mcg = 97749 Iu)] Famotidine [Pepcid] 20 mg PO BID 04/29/23 07/22/23 Gabapentin 600 mg PO TID 04/29/23 07/22/23 Insulin Lispro [Insulin Lispro 7 units SQ AC-TID 04/29/23 07/22/23 Kwikpen U-100] Losartan Potassium 50 mg PO DAILY 04/29/23 07/22/23 Mirtazapine 7.5 mg PO HS 04/29/23 07/22/23 Allergies Allergy/AdvReac Type Severity Reaction Status Date / Time No Known Allergies Allergy Verified 07/22/23 08:00 Review of Systems ROS Statement: Those systems with pertinent positive or pertinent negative responses have been documented in the HPI. Review of Systems: CONST: Denies fever EYES: Denies blurry vision ENT: Denies nasal congestion C/V: Denies Chest pain RESP: Denies shortness of breath GI: Endorses nausea and vomiting : Denies dysuria SKIN: Denies rash. MSK: Denies joint pain. NEURO: Denies headache ROS Other: All systems not noted in ROS Statement are negative. Past Medical History Past Medical History: Asthma, Diabetes Mellitus, Neurologic Disorder, Skin D isorder Additional Past Medical History / Comment(s): IDDM type I, neuropathy bilateral feet, DKA, eczema. History of Any Multi-Drug Resistant Organisms: None Reported Past Surgical History: Adenoidectomy Additional Past Surgical History / Comment(s): 2003 Recent EGD- gastritis Past Anesthesia/Blood Transfusion Reactions: No Reported Reaction Past Psychological History: Anxiety, Depression Smoking Status: Current every day smoker Past Alcohol Use History: None Reported Past Drug Use History: Marijuana - Past Family History Mother Family Medical History: CVA/TIA Additional Family Medical History / Comment(s): TIA Father Family Medical History: Hyperlipidemia, Hypertension Additional Family Medical History / Comment(s): . General Exam - General Exam Comments Initial Comments: General: Appears dehydrated, in mild to moderate distress. HEAD: Normal with no signs of head trauma. EYES: PERRLA, EOMI, conjunctiva normal, no discharge. ENT: Hearing grossly intact, normal oropharynx. Dry mucous membranes. RESPIRATORY: Clear breath sounds bilaterally. Increased respirations likely secondary to acidosis C/V: Tachycardic with regular rhythm. S1 and S2 auscultated, no edema, peripheral pulses 2+ and intact throughout ABD: Abd is soft, nontender, nondistended. No focal tenderness on palpation. EXT: Normal range of motion, no obvious deformity SKIN: No rashes or lesions observed on exposed skin. NEURO: Alert and oriented x 3-4. No focal deficits. Limitations: no limitations Course Vital Signs 07/22/23 07/22/23 07/22/23 07:37 08:49 09:02 Temperature 93.1 F L Pulse Rate 119 H 118 H 122 H Respiratory 30 H Rate Blood Pressure 110/73 O2 Sat by Pulse 100 Oximetry 07/22/23 07/22/23 07/22/23 09:08 09:45 10:00 Temperature Pulse Rate 124 H 133 H Respiratory 30 H 30 H Rate Blood Pressure 103/53 119/66 119/66 O2 Sat by Pulse 100 100 Oximetry Medical Decision Making - Medical Decision Making Was pt. sent in by a medical professional or institution (, PA, TEST LEAD, urgent c are, hospital, or [place] [facility] facility...) When possible be specific @ -No Did you speak to anyone other than the patient for history (EMS, parent, family, police, friend...)? What history was obtained from this source @ -No Did you review nursing and triage notes (agree or disagree)? Why? @ -I reviewed and agree with nursing and triage notes Were old charts reviewed (outside hosp., previous admission, EMS record, old EKG, old radiological studies, urgent care reports/EKG's, [place] [facility] facility records)? Report findings @ -Old charts reviewed Differential Diagnosis (chest pain, altered mental status, abdominal pain women, abdominal pain men, vaginal bleeding, weakness, fever, dyspnea, syncope, head ache, dizziness, GI bleed, back pain, seizure, CVA, palpatations, mental health, musculoskeletal)? @ -Differential Abdominal Pain Men: Appendicitis, cholecystitis, diverticulosis, ischemic bowel, pancreatitis, hepatitis, UTI, gastroenteritis, AAA, incarcerated hernia, bowel obstruction, constipation, inflammatory bowel, hepatitis, peptic ulcer disease, splenic infarction, perforated viscus, testicular torsion, this is not meant to be an all-inclusive list EKG interpreted by me (3pts min.). @ -As above X-rays interpreted by me (1pt min.). @ -Patient's chest x-ray reveals no obvious acute cardiopulmonary process. CT interpreted by me (1pt min.). @ -None done U/S interpreted by me (1pt. min.). @ -None done What testing was considered but not performed or refused? (CT, X-rays, U/S, labs )? Why? @ -None What meds were considered but not given or refused? Why? @ -None Did you discuss the management of the patient with other professionals (professionals i.e. , PA, TEST LEAD, lab, RT, psych nurse, social media editor, vessel master, teacher, chief financial officer, casework supervisor)? Give summary @ -Discussed the case in person with Dr. Shankar of ICU who accepted the patient. Spoke with admitting physician, Dr. Valenzuela who accepted the patient. Both were in agreement with plan and management. Was smoking cessation discussed for >3mins.? @ -No Was critical care preformed (if so, how long)? @ -Yes, 38 minutes Were there social determinants of health that impacted care today? How? (Homelessness, low income, unemployed, alcoholism, drug addiction, transportation, low edu. Level, literacy, decrease access to med. care, shelter, rehab)? @ -No Was there de-escalation of care discussed even if they declined (Discuss DNR or withdrawal of care, Hospice)? DNR status @ -No What co-morbidities impacted this encounter? (DM, HTN, Smoking, COPD, CAD, Cancer, CVA, ARF, Chemo, Hep., AIDS, mental health diagnosis, sleep apnea, morbid obesity)? @ -Poorly controlled insulin-dependent diabetes Was patient admitted / discharged? Hospital course, mention meds given and route, prescriptions, significant lab abnormalities, going to OR and other pertinent info. @ -Based on the patient's presentation and physical exam, I do suspect he presents once again in DKA. We will obtain appropriate labs, EKG, as well as administer 2 L of fluid, IV Zofran and Protonix to start. Patient's EKG concerning for hyperkalemia but no signs of acute ischemia. Therefore patient will also be given hyperkalemia cocktail consisting of albuterol, calcium, insulin, 2 A of bicarb as well as Lokelma. Patient was in agreement this plan. Vital signs remarkable for tachycardia as well as increased work of breathing which fits with his current clinical suspicion of DKA. Patient received a total of 2 L fluid bolus. EKG shows findings concerning for hyperkalemia and as stated above, received hyperkalemia cocktail. Patient's labs returned with a leukocytosis, lactic acidosis, hyperglycemia, hyperkalemia, positive acetone, as well as positive ketones and glucose in the urine. Viral swabs negative. Patient has an SHANTEL with a creatinine of 1.81. Patient has an anion gap metabolic acidosis, with VBG of 6.84. CO2 on blood work is less than 5. Patient started on DKA protocol. This includes insulin drip, 200 cc an hour of fluids. Due to the severity of the patient's DKA, I would like to admit the patient to the ICU. The rest of his oratory studies including the leukocytosis and lactic acidosis are very unlikely to be secondary to infection but rather secondary to his DKA and extreme dehydration. Is very typical for him. There are many visits for comparison for this where he has not required antibiotics. DKA treatment resolves his lactic acidosis as well as leukocytosis. Therefore I do not have concern for sepsis at this time but we will continue to monitor. We will continue with treatment of DKA. I spoke with ICU attending Dr. Shankar who accepted the patient to the ICU and was in agreement the plan for management. I spoke with the accepting physician, Dr. Valenzuela who accepted the patient. Undiagnosed new problem with uncertain prognosis? @ -No Drug Therapy requiring intensive monitoring for toxicity (Heparin, Nitro, Insulin, Cardizem)? @ -No Were any procedures done? @ -No Diagnosis/symptom? @ -DKA, hyperkalemia Acute, or Chronic, or Acute on Chronic? @ -Acute Uncomplicated (without systemic symptoms) or Complicated (systemic symptoms)? @ -Complicated Side effects of treatment? @ -None Exacerbation, Progression, or Severe Exacerbation] @ -No Poses a threat to life or bodily function? @ -Yes - Lab Data Result diagrams: 07/22/23 11:27 07/22/23 11:27 Lab Results 07/22/23 07/22/23 07/22/23 Range/Units 07:57 07:57 07:57 WBC 22.3 H (3.8-10.6) k/uL RBC 4.36 (4.30-5.90) m/uL Hgb 12.2 L (13.0-17.5) gm/dL Hct 46.3 (39.0-53.0) % MCV 106.2 H D (80.0-100.0) fL MCH 27.9 (25.0-35.0) pg MCHC 26.3 L (31.0-37.0) g/dL RDW 17.0 H (11.5-15.5) % Plt Count 627 H (150-450) k/uL MPV 7.8 Neutrophils % 80 % Lymphocytes % 16 % Monocytes % 3 % Eosinophils % 1 % Basophils % 1 % Neutrophils # 17.8 H (1.3-7.7) k/uL Lymphocytes # 3.6 (1.0-4.8) k/uL Monocytes # 0.6 (0-1.0) k/uL Eosinophils # 0.1 (0-0.7) k/uL Basophils # 0.1 (0-0.2) k/uL Hypochromasia Marked Anisocytosis Slight Macrocytosis Marked A PT 10.7 (10.0-12.5) sec INR 1.0 (<1.2) APTT 25.1 (22.0-30.0) sec VBG pH (7.31-7.41) VBG pCO2 (37-51) mmHg VBG HCO3 (24-28) mmol/L Sodium 139 (137-145) mmol/L Potassium 6.1 H* (3.5-5.1) mmol/L Chloride 95 L (98-107) mmol/L Carbon Dioxide <5 L* (22-30) mmol/L Anion Gap mmol/L BUN 28 H (9-20) mg/dL Creatinine 1.81 H (0.66-1.25) mg/dL Est GFR (CKD-EPI)AfAm 59 (>60 ml/min/1.73 sqM) Est GFR (CKD-EPI)NonAf 51 (>60 ml/min/1.73 sqM) Glucose 982 H* (74-99) mg/dL POC Glucose (mg/dL) (70-110) mg/dL POC Glu It Trainee ID Lactic Ac Sepsis Rflx Plasma Lactic Acid Len (0.7-2.0) mmol/L Calcium 9.6 (8.4-10.2) mg/dL Total Bilirubin 0.6 (0.2-1.3) mg/dL AST 27 (17-59) U/L ALT 29 (4-49) U/L Alkaline Phosphatase 138 H (38-126) U/L Total Protein 7.0 (6.3-8.2) g/dL Albumin 5.0 (3.5-5.0) g/dL Amylase 55 (30-110) U/L Lipase 100 (23-300) U/L Acetone, Qual Positive (Negative) Influenza Type A (PCR) (Not Detectd) Influenza Type B (PCR) (Not Detectd) RSV (PCR) (Not Detectd) SARS-CoV-2 (PCR) (Not Detectd) 07/22/23 07/22/23 07/22/23 Range/Units 07:57 07:57 07:57 WBC (3.8-10.6) k/uL RBC (4.30-5.90) m/uL Hgb (13.0-17.5) gm/dL Hct (39.0-53.0) % MCV (80.0-100.0) fL MCH (25.0-35.0) pg MCHC (31.0-37.0) g/dL RDW (11.5-15.5) % Plt Count (150-450) k/uL MPV Neutrophils % % Lymphocytes % % Monocytes % % Eosinophils % % Basophils % % Neutrophils # (1.3-7.7) k/uL Lymphocytes # (1.0-4.8) k/uL Monocytes # (0-1.0) k/uL Eosinophils # (0-0.7) k/uL Basophils # (0-0.2) k/uL Hypochromasia Anisocytosis Macrocytosis PT (10.0-12.5) sec INR (<1.2) APTT (22.0-30.0) sec VBG pH 6.84 L* (7.31-7.41) VBG pCO2 17 L* (37-51) mmHg VBG HCO3 3 L* (24-28) mmol/L Sodium (137-145) mmol/L Potassium (3.5-5.1) mmol/L Chloride (98-107) mmol/L Carbon Dioxide (22-30) mmol/L Anion Gap mmol/L BUN (9-20) mg/dL Creatinine (0.66-1.25) mg/dL Est GFR (CKD-EPI)AfAm (>60 ml/min/1.73 sqM) Est GFR (CKD-EPI)NonAf (>60 ml/min/1.73 sqM) Glucose (74-99) mg/dL POC Glucose (mg/dL) (70-110) mg/dL POC Glu It Trainee ID Lactic Ac Sepsis Rflx Plasma Lactic Acid Len 7.5 H* (0.7-2.0) mmol/L Calcium (8.4-10.2) mg/dL Total Bilirubin (0.2-1.3) mg/dL AST (17-59) U/L ALT (4-49) U/L Alkaline Phosphatase (38-126) U/L Total Protein (6.3-8.2) g/dL Albumin (3.5-5.0) g/dL Amylase (30-110) U/L Lipase (23-300) U/L Acetone, Qual (Negative) Influenza Type A (PCR) Not Detected (Not Detectd) Influenza Type B (PCR) Not Detected (Not Detectd) RSV (PCR) Not Detected (Not Detectd) SARS-CoV-2 (PCR) Not Detected (Not Detectd) 07/22/23 07/22/23 Range/Units 08:05 08:45 WBC (3.8-10.6) k/uL RBC (4.30-5.90) m/uL Hgb (13.0-17.5) gm/dL Hct (39.0-53.0) % MCV (80.0-100.0) fL MCH (25.0-35.0) pg MCHC (31.0-37.0) g/dL RDW (11.5-15.5) % Plt Count (150-450) k/uL MPV Neutrophils % % Lymphocytes % % Monocytes % % Eosinophils % % Basophils % % Neutrophils # (1.3-7.7) k/uL Lymphocytes # (1.0-4.8) k/uL Monocytes # (0-1.0) k/uL Eosinophils # (0-0.7) k/uL Basophils # (0-0.2) k/uL Hypochromasia Anisocytosis Macrocytosis PT (10.0-12.5) sec INR (<1.2) APTT (22.0-30.0) sec VBG pH (7.31-7.41) VBG pCO2 (37-51) mmHg VBG HCO3 (24-28) mmol/L Sodium (137-145) mmol/L Potassium (3.5-5.1) mmol/L Chloride (98-107) mmol/L Carbon Dioxide (22-30) mmol/L Anion Gap mmol/L BUN (9-20) mg/dL Creatinine (0.66-1.25) mg/dL Est GFR (CKD-EPI)AfAm (>60 ml/min/1.73 sqM) Est GFR (CKD-EPI)NonAf (>60 ml/min/1.73 sqM) Glucose (74-99) mg/dL POC Glucose (mg/dL) >600 H (70-110) mg/dL POC Glu It Trainee ID Greer, Arturo Lactic Ac Sepsis Rflx Y Plasma Lactic Acid Len (0.7-2.0) mmol/L Calcium (8.4-10.2) mg/dL Total Bilirubin (0.2-1.3) mg/dL AST (17-59) U/L ALT (4-49) U/L Alkaline Phosphatase (38-126) U/L Total Protein (6.3-8.2) g/dL Albumin (3.5-5.0) g/dL Amylase (30-110) U/L Lipase (23-300) U/L Acetone, Qual (Negative) Influenza Type A (PCR) (Not Detectd) Influenza Type B (PCR) (Not Detectd) RSV (PCR) (Not Detectd) SARS-CoV-2 (PCR) (Not Detectd) - EKG Data -: EKG Interpreted by Me EKG Comments: 12-lead Electrocardiogram Interpretation Note EKG was reviewed and interpreted by myself. 12-lead ECG performed at 0740 is interpreted by me as revealing sinus tachycardia at a rate of 130 beats per minute. Right axis deviation. QRS durations 101 ms, QTc is 420 ms. Patient has peaked T waves suggestive of hyperkalemia which fits with his current clinical presentation of DKA. There were no ST or T wave abnormalities to suggest myocardial ischemia or injury. R wave progression across the precordium was satisfactory. By my interpretation this EKG is non-diagnostic for acute is chemia. Concerns for hyperkalemia. Critical Care Time Critical Care Time: Yes Total Critical Care Time: 38 Disposition Clinical Impression: DKA (diabetic ketoacidosis), Hyperkalemia Disposition: ADMITTED IP TO THIS HOSP Condition: Serious Time of Disposition: 09:08
[2023-07-22 08:07] LABS: Glucose,Whole Blood >600 mg/dL (70-110)
[2023-07-22 08:07] LABS: Anisocytosis Slight; Basophils # (A) 0.1 k/uL (0-0.2); Basophils % (A) 1 %; Eosinophils # (A) 0.1 k/uL (0-0.7); Eosinophils % (A) 1 %; HCT 46.3 % (39.0-53.0); HGB 12.2 gm/dL (13.0-17.5); Hypochromasia Marked; Lymphocytes # (A) 3.6 k/uL (1.0-4.8); Lymphocytes % (A) 16 %; MCH 27.9 pg (25.0-35.0); MCHC 26.3 g/dL (31.0-37.0); Macrocytosis Marked; Mean Platelet Volume 7.8; Monocytes # (A) 0.6 k/uL (0-1.0); Monocytes % (A) 3 %; Neutrophils # (A) 17.8 k/uL (1.3-7.7); Neutrophils % (A) 80 %; Platelet Count 627 k/uL (150-450); RBC 4.36 m/uL (4.30-5.90); WBC 22.3 k/uL (3.8-10.6)
[2023-07-22] MEDS: SODIUM CHLORIDE 0.9% 2,000 ML IV STA (08:07)
[2023-07-22] MEDS: SODIUM ZIRCONIUM CYCLOSILICATE 10 GM PACKET PO ONE (08:09)
[2023-07-22] MEDS: SODIUM BICARB 8.4% 50 ML SYR (1 MEQ/ML) IV ONE (08:15)
[2023-07-22] MEDS: SODIUM BICARB 8.4% 50 ML SYR (1 MEQ/ML) IV STA (08:17)
[2023-07-22] MEDS: CALCIUM GLUCONATE IN NACL 1 GM in SALINE 1 100ML.BAG IVPB ONE (08:20)
[2023-07-22] MEDS: INSULIN REGULAR 100 UNIT/ML VIAL (IV) IV ONE (08:21)
[2023-07-22 08:28] LABS: MCV 106.2 fL (80.0-100.0)
[2023-07-22 08:29] LABS: ALT 29 U/L (4-49); AST 27 U/L (17-59); African American GFR (CKD) 59 (>60 ml/min/1.73 sqM); Alkaline Phosphatase 138 U/L (38-126); Amylase 55 U/L (30-110); Blood Urea Nitrogen 28 mg/dL (9-20); Calcium 9.6 mg/dL (8.4-10.2); Chloride 95 mmol/L (98-107); Lipase 100 U/L (23-300); Non-African American GFR(CKD) 51 (>60 ml/min/1.73 sqM); Sodium 139 mmol/L (137-145); Total Bilirubin 0.6 mg/dL (0.2-1.3)
[2023-07-22 08:37] LABS: Partial Thromboplastin Time 25.1 sec (22.0-30.0); Prothrombin Time 10.7 sec (10.0-12.5)
[2023-07-22 08:46] LABS: Carbon Dioxide <5 mmol/L (22-30); Potassium 6.1 mmol/L (3.5-5.1); VBG PH 6.84 (7.31-7.41)
[2023-07-22 08:47] LABS: Glucose 982 mg/dL (74-99)
[2023-07-22] MEDS ORDERED: Potassium Replacement Protocol 1 EACH MISC MISCELLANE PRN (08:48)
[2023-07-22] MEDS ORDERED: Magnesium Replacement Protocol 1 EACH MISC MISCELLANE PRN (08:48)
[2023-07-22] MEDS ORDERED: DEXTROSE 50% SYRINGE 50 ML IVP PRN ×2 (08:48)
[2023-07-22] MEDS: ALBUTEROL NEB (CONC) 2.5 MG/0.5 ML INHALATION ONE (08:49)
[2023-07-22] MEDS ORDERED: NALOXONE 0.4 MG/ML 1 ML VIAL IV PRN (09:09)
[2023-07-22] MEDS: SODIUM CHLORIDE 0.9% 1,000 ML IV SCH (09:19)
[2023-07-22] MEDS: INSULIN REGULAR BOLUS (FROM DRIP BAG) IV ONE (09:24)
[2023-07-22] MEDS: INSULIN REGULAR 100 UNIT in SODIUM CHLORIDE 0.9% 100 ML IV SCH (09:27)
[2023-07-22 09:32] LABS: Glucose,Whole Blood >600 mg/dL (70-110)
[2023-07-22 09:35] LABS: Appearance,Urine Clear (Clear); Bilirubin,Urine Negative (Negative); Blood,Urine Negative (Negative); Color,Urine Colorless; Glucose,Urine (UA) 4+ (Negative); Leukocyte Esterase,Urine Negative (Negative); Nitrite,Urine Negative (Negative); Protein,Urine Negative (Negative); Specific Gravity,Urine 1.018 (1.001-1.035); Urobilinogen,Urine <2.0 mg/dL (<2.0)
[2023-07-22 09:39] LABS: Ketones,Urine 4+ (Negative)
[2023-07-22 10:00] LABS: Glucose,Whole Blood >600 mg/dL (70-110)
[2023-07-22 10:12] LABS: Glucose,Whole Blood >600 mg/dL (70-110)
--- NOTE | 2023-07-22 10:19 | P.CNPUL ---
History of Present Illness Consult date: 07/22/23 Chief complaint: Altered mental status History of present illness: This is a 27-year-old male patient, recurrent episodes of DKA coming in [facility] for the same. Very noncompliant to insulin therapy. Last hospital admission was on 07/10/2023. The patient typically gets hospitalized once or twice on the mental basis for the same. During this current admission, the patient comes in with altered mentation. Labs were consistent with DKA with a blood sugar above 600, white cell count of 22 with a hemoglobin 12.2 and a platelet count of 627. His VBG shows a pH of 6.8. Potassium levels at 6.1. Serum bicarb is less than 5 with a potassium level of 6.1. He has anion gap metabolic acidosis. He also has an acute kidney injury with a creatinine of 1.8 with a BUN of 28. LFTs are normal. UA showing plus for glucose and plus for ketones. The viral screen is negative. Serum acetone is positive. The patient was given a total of 3 L of IV fluid and the patient is currently on normal saline at rate of 200 and cc an hour and an insulin drip is running at 5.4 units an hour. In the emergency, he was given 2 doses of sodium bicarb 50 mill equivalents each and 10 units of insulin and Lokelma. He is currently on 2 L of oxygen by nasal cannula. Chest x-ray was reviewed and there is no acute abnormalities. Review of Systems ROS unobtainable: due to mental status Past Medical History Past Medical History: Asthma, Diabetes Mellitus, Neurologic Disorder, Skin Disorder Additional Past Medical History / Comment(s): IDDM type I, neuropathy bilateral feet, DKA, eczema. History of Any Multi-Drug Resistant Organisms: None Reported Past Surgical History: Adenoidectomy Additional Past Surgical History / Comment(s): 2003 Recent EGD- gastritis Past Anesthesia/Blood Transfusion Reactions: No Reported Reaction Past Psychological History: Anxiety, Depression Smoking Status: Current every day smoker Past Alcohol Use History: None Reported Past Drug Use History: Marijuana - Past Family History Mother Family Medical History: CVA/TIA Additional Family Medical History / Comment(s): TIA Father Family Medical History: Hyperlipidemia, Hypertension Additional Family Medical History / Comment(s): . Medications and Allergies Home Medications Medication Instructions Recorded Confirmed Type Insulin Detemir (Levemir) [Levemir] 30 unit SQ HS 03/07/23 07/22/23 History Ergocalciferol [Vitamin D2 (1250 1,250 mcg PO Q30D 04/29/23 07/22/23 History Mcg = 34913 Iu)] Famotidine [Pepcid] 20 mg PO BID 04/29/23 07/22/23 History Gabapentin 600 mg PO TID 04/29/23 07/22/23 History Insulin Lispro [Insulin Lispro 7 units SQ AC-TID 04/29/23 07/22/23 History Kwikpen U-100] Losartan Potassium 50 mg PO DAILY 04/29/23 07/22/23 History Mirtazapine 7.5 mg PO HS 04/29/23 07/22/23 History Allergies Allergy/AdvReac Type Severity Reaction Status Date / Time No Known Allergies Allergy Verified 07/22/23 08:00 Physical Exam Vitals: Vital Signs Temp Pulse Resp BP Pulse Ox 07/22/23 09:45 133 H 30 H 119/66 100 07/22/23 09:08 124 H 30 H 103/53 100 07/22/23 09:02 122 H 07/22/23 08:49 118 H 07/22/23 07:37 93.1 F L 119 H 30 H 110/73 100 Intake and Output 07/21/23 07/22/23 07/22/23 22:59 06:59 14:59 Other: Weight 54.431 kg GENERAL EXAM: Alert, 27-year-old white male, disheveled, tachypneic with rapid breathing HEAD: Normocephalic and atraumatic EYES: Normal reaction of pupils, equal size. NOSE: Clear with pink turbinates. THROAT: No erythema or exudates. NECK: No masses, no JVD. CHEST: No chest wall deformity. LUNGS: Equal air entry with no crackles, wheeze, rhonchi or dullness. No conversational dyspnea or accessory muscle use.. CVS: S1 and S2 normal with grade 1 systolic murmur, regular rhythm. No other extra heart sounds ABDOMEN: No hepatosplenomegaly, active bowel sounds, no guarding or rigidity. SPINE: No scoliosis or deformity SKIN: No rashes CENTRAL NERVOUS SYSTEM: No focal deficits, tone is normal in all 4 extremities. EXTREMITIES: There is no peripheral edema, clubbing, or cyanosis. Peripheral pulses are intact. Results - Laboratory Findings CBC and BMP: 07/22/23 07:57 07/22/23 07:57 PT/INR, D-dimer PT 10.7 sec (10.0-12.5) 07/22/23 07:57 INR 1.0 (<1.2) 07/22/23 07:57 Abnormal lab findings: Abnormal Labs 07/22/23 07/22/23 07/22/23 07:57 07:57 07:57 WBC 22.3 H Hgb 12.2 L MCV 106.2 H D MCHC 26.3 L RDW 17.0 H Plt Count 627 H Neutrophils # 17.8 H Macrocytosis Marked A VBG pH VBG pCO2 VBG HCO3 Potassium 6.1 H* Chloride 95 L Carbon Dioxide <5 L* BUN 28 H Creatinine 1.81 H Glucose 982 H* POC Glucose (mg/dL) Plasma Lactic Acid Len 7.5 H* Alkaline Phosphatase 138 H Urine Glucose (UA) Urine Ketones 07/22/23 07/22/23 07/22/23 07:57 08:05 09:26 WBC Hgb MCV MCHC RDW Plt Count Neutrophils # Macrocytosis VBG pH 6.84 L* VBG pCO2 17 L* VBG HCO3 3 L* Potassium Chloride Carbon Dioxide BUN Creatinine Glucose POC Glucose (mg/dL) >600 H >600 H Plasma Lactic Acid Len Alkaline Phosphatase Urine Glucose (UA) Urine Ketones 07/22/23 07/22/23 07/22/23 09:32 09:53 10:10 WBC Hgb MCV MCHC RDW Plt Count Neutrophils # Macrocytosis VBG pH VBG pCO2 VBG HCO3 Potassium Chloride Carbon Dioxide BUN Creatinine Glucose POC Glucose (mg/dL) >600 H >600 H Plasma Lactic Acid Len Alkaline Phosphatase Urine Glucose (UA) 4+ H Urine Ketones 4+ H - Diagnostic Findings Chest x-ray: image reviewed Assessment and Plan Plan: Acute diabetic ketoacidosis, likely secondary to medication noncompliance. Patient has had numerous episodes of DKA, recently discharged on 07/10/2023 for the same, he is being treated based on the DKA protocol Severe anion gap metabolic acidosis, secondary to above Severe dehydration Acute kidney injury, prerenal, secondary to above. Acute leukocytosis secondary to above Hyperkalemia, secondary to above Type 1 diabetes mellitus, with poor medication compliance. Acute leukocytosis, likely reactive to DKA, and the patient supposed to be on Levemir insulin 30 units along with 7 units with meals 3 times daily on o utpatient basis. Essentially noncompliant. Does not take his medication. Diabetic neuropathy History of major depression Chronic marijuana use Chronic ongoing nicotine dependence Plan: Admit to the ICU and treat based on the DKA protocol currently on insulin drip at 5 units an hour and received a total of 3 days of IV fluids. The patient is currently on normal saline at rate of 200 cc an hour Monitor electrolytes Leukocytosis likely reactive the chest x-ray is clear Heparin subcu for DVT prophylaxis IV Protonix We will continue to follow
--- NOTE | 2023-07-22 10:19 | XR ---
EXAMINATION TYPE: XR chest 1V portable DATE OF EXAM: 07/22/2023 9:41 AM CLINICAL INDICATION:Male, 27 years old with history of dka; [facility] COMPARISON: Chest radiographs from 06/21/2023 TECHNIQUE: XR chest 1V portable Frontal view of the chest. FINDINGS: Lungs/Pleura: There is no evidence of pleural effusion, focal consolidation, or pneumothorax. Pulmonary vascularity: Unremarkable. Heart/mediastinum: Cardiomediastinal silhouette is unremarkable. Musculoskeletal: No acute osseous pathology. IMPRESSION: No acute cardiopulmonary disease/process.
[2023-07-22 11:04] LABS: Glucose,Whole Blood 556 mg/dL (70-110)
[2023-07-22] MEDS: INSULIN ASPART (NovoLOG) 100 UNIT/ML VIAL SQ SCH (11:55)
[2023-07-22 12:00] LABS: African American GFR (CKD) >90 (>60 ml/min/1.73 sqM); Blood Urea Nitrogen 26 mg/dL (9-20); Calcium 8.8 mg/dL (8.4-10.2); Chloride 114 mmol/L (98-107); Magnesium 2.3 mg/dL (1.6-2.3); Non-African American GFR(CKD) 83 (>60 ml/min/1.73 sqM); Phosphorus 5.8 mg/dL (2.5-4.5); Sodium 148 mmol/L (137-145)
[2023-07-22 12:06] LABS: Anisocytosis Slight; Basophils # (A) 0.1 k/uL (0-0.2); Basophils % (A) 0 %; Eosinophils % (A) 0 %; HGB 11.1 gm/dL (13.0-17.5); Hypochromasia Marked; Lymphocytes # (A) 3.1 k/uL (1.0-4.8); Lymphocytes % (A) 10 %; MCH 28.1 pg (25.0-35.0); MCHC 27.8 g/dL (31.0-37.0); Macrocytosis Moderate; Mean Platelet Volume 7.3; Monocytes # (A) 1.6 k/uL (0-1.0); Monocytes % (A) 5 %; Neutrophils # (A) 26.1 k/uL (1.3-7.7); Neutrophils % (A) 84 %; Platelet Count 567 k/uL (150-450); RBC 3.96 m/uL (4.30-5.90); RDW 16.9 % (11.5-15.5); WBC 31.1 k/uL (3.8-10.6)
[2023-07-22 12:08] LABS: Glucose,Whole Blood 428 mg/dL (70-110)
[2023-07-22 12:09] LABS: MCV 101.2 fL (80.0-100.0)
[2023-07-22 12:14] LABS: Glucose 547 mg/dL (74-99)
[2023-07-22 12:15] LABS: Carbon Dioxide <5 mmol/L (22-30)
[2023-07-22 13:05] LABS: Glucose,Whole Blood 390 mg/dL (70-110)
[2023-07-22 14:13] LABS: Glucose,Whole Blood 289 mg/dL (70-110)
[2023-07-22] MEDS: D5-0.45% NACL WITH KCL 20MEQ/L 1,000 ML IV SCH (14:16)
[2023-07-22 15:04] LABS: Glucose,Whole Blood 271 mg/dL (70-110)
[2023-07-22] MEDS: ONDANSETRON 4 MG/2 ML VIAL IVP PRN (15:28)
[2023-07-22 16:38] LABS: Glucose,Whole Blood 217 mg/dL (70-110)
[2023-07-22] MEDS: HEPARIN SODIUM,PORCINE 5,000 UNIT/ML 1 ML VIAL SQ SCH (16:40)
[2023-07-22 17:33] LABS: Glucose,Whole Blood 229 mg/dL (70-110)
[2023-07-22 18:17] LABS: Glucose,Whole Blood 226 mg/dL (70-110)
[2023-07-22 18:26] LABS: African American GFR (CKD) >90 (>60 ml/min/1.73 sqM); Anion Gap 15 mmol/L; Blood Urea Nitrogen 20 mg/dL (9-20); Carbon Dioxide 16 mmol/L (22-30); Chloride 111 mmol/L (98-107); Glucose 192 mg/dL (74-99); Non-African American GFR(CKD) >90 (>60 ml/min/1.73 sqM); Phosphorus 2.4 mg/dL (2.5-4.5); Potassium 4.2 mmol/L (3.5-5.1); Sodium 142 mmol/L (137-145)
[2023-07-22 19:08] LABS: Glucose,Whole Blood 178 mg/dL (70-110)
[2023-07-22 19:55] LABS: Glucose,Whole Blood 171 mg/dL (70-110)
[2023-07-22] MEDS: INSULIN DETEMIR (LEVEMIR) 100 UNIT/ML SYR SQ SCH (20:10)
[2023-07-22] MEDS: FAMOTIDINE 20 MG TAB PO SCH (20:12)
[2023-07-22 20:58] LABS: Glucose,Whole Blood 124 mg/dL (70-110)
[2023-07-22 22:00] LABS: Glucose,Whole Blood 101 mg/dL (70-110)
[2023-07-22 22:56] LABS: Glucose,Whole Blood 105 mg/dL (70-110)
[2023-07-22 23:48] LABS: African American GFR (CKD) >90 (>60 ml/min/1.73 sqM); Anion Gap 7 mmol/L; Blood Urea Nitrogen 16 mg/dL (9-20); Calcium 8.1 mg/dL (8.4-10.2); Carbon Dioxide 20 mmol/L (22-30); Chloride 107 mmol/L (98-107); Glucose 103 mg/dL (74-99); Non-African American GFR(CKD) >90 (>60 ml/min/1.73 sqM); Phosphorus 2.3 mg/dL (2.5-4.5); Potassium 3.8 mmol/L (3.5-5.1); Sodium 134 mmol/L (137-145)
[2023-07-23 00:09] LABS: Glucose,Whole Blood 119 mg/dL (70-110)
[2023-07-23 00:59] LABS: Glucose,Whole Blood 144 mg/dL (70-110)
[2023-07-23] MEDS: POTASSIUM CHLORIDE ER 20 MEQ TAB.ER PO STA (01:17)
[2023-07-23] MEDS: POTASSIUM BICARBONATE/CIT AC 20 MEQ TABLET.EFF PO STA (01:25)
[2023-07-23 02:01] LABS: Glucose,Whole Blood 180 mg/dL (70-110)
[2023-07-23 02:55] LABS: Glucose,Whole Blood 191 mg/dL (70-110)
[2023-07-23 03:55] LABS: Glucose,Whole Blood 180 mg/dL (70-110)
[2023-07-23 04:45] LABS: Anisocytosis Slight; Basophils # (A) 0.1 k/uL (0-0.2); Basophils % (A) 0 %; Eosinophils # (A) 0.1 k/uL (0-0.7); Eosinophils % (A) 1 %; HCT 27.5 % (39.0-53.0); Hypochromasia Slight; Lymphocytes # (A) 2.3 k/uL (1.0-4.8); Lymphocytes % (A) 13 %; MCH 29.4 pg (25.0-35.0); MCHC 33.3 g/dL (31.0-37.0); Mean Platelet Volume 7.1; Monocytes # (A) 0.8 k/uL (0-1.0); Monocytes % (A) 5 %; Neutrophils # (A) 14.8 k/uL (1.3-7.7); Neutrophils % (A) 81 %; Platelet Count 397 k/uL (150-450); RBC 3.12 m/uL (4.30-5.90); RDW 17.6 % (11.5-15.5); WBC 18.3 k/uL (3.8-10.6)
[2023-07-23 04:46] LABS: ALT 22 U/L (4-49); AST 21 U/L (17-59); African American GFR (CKD) >90 (>60 ml/min/1.73 sqM); Albumin 2.9 g/dL (3.5-5.0); Alkaline Phosphatase 83 U/L (38-126); Anion Gap 9 mmol/L; Blood Urea Nitrogen 14 mg/dL (9-20); Calcium 8.1 mg/dL (8.4-10.2); Carbon Dioxide 18 mmol/L (22-30); Chloride 105 mmol/L (98-107); Glucose 176 mg/dL (74-99); Non-African American GFR(CKD) >90 (>60 ml/min/1.73 sqM); Potassium 4.3 mmol/L (3.5-5.1); Sodium 132 mmol/L (137-145); Total Bilirubin 0.4 mg/dL (0.2-1.3); Total Protein 5.1 g/dL (6.3-8.2)
[2023-07-23 04:47] LABS: HGB 9.2 gm/dL (13.0-17.5); MCV 88.1 fL (80.0-100.0)
[2023-07-23 04:55] LABS: Glucose,Whole Blood 208 mg/dL (70-110)
[2023-07-23 05:55] LABS: Glucose,Whole Blood 199 mg/dL (70-110)
[2023-07-23 07:00] LABS: Glucose,Whole Blood 210 mg/dL (70-110)
[2023-07-23 09:27] LABS: Glucose,Whole Blood 184 mg/dL (70-110)
[2023-07-23 10:07] LABS: Glucose,Whole Blood 176 mg/dL (70-110)
[2023-07-23] MEDS: INSULIN DETEMIR (LEVEMIR) 100 UNIT/ML SYR SQ ONE (10:11)
[2023-07-23] MEDS: PANTOPRAZOLE 40 MG/10 ML VIAL IV SCH (10:11)
[2023-07-23 11:30] LABS: Glucose,Whole Blood 206 mg/dL (70-110)
[2023-07-23] MEDS ORDERED: DEXTROSE 50% SYRINGE 50 ML IVP PRN ×2 (13:45)
[2023-07-23] MEDS: INSULIN ASPART (NovoLOG) 100 UNIT/ML VIAL SQ SCH (13:56)
[2023-07-23 14:23] LABS: Glucose,Whole Blood 138 mg/dL (70-110)
[2023-07-23 14:51] VITALS: BMI 17.6
--- NOTE | 2023-07-23 15:32 | P.PN ---
Subjective Progress Note Date: 07/23/23 This is a 27-year-old male patient, recurrent episodes of DKA coming in essentially for the same. Very noncompliant to insulin therapy. Last hospital admission was on 07/10/2023. The patient typically gets hospitalized once or twice on the mental basis for the same. During this current admission, the patient comes in with altered mentation. Labs were consistent with DKA with a blood sugar above 600, white cell count of 22 with a hemoglobin 12.2 and a platelet count of 627. His VBG shows a pH of 6.8. Potassium levels at 6.1. Serum bicarb is less than 5 with a potassium level of 6.1. He has anion gap metabolic acidosis. He also has an acute kidney injury with a creatinine of 1.8 with a BUN of 28. LFTs are normal. UA showing plus for glucose and plus for ketones. The viral screen is negative. Serum acetone is positive. The patient was given a total of 3 L of IV fluid and the patient is currently on normal saline at rate of 200 and cc an hour and an insulin drip is running at 5.4 units an hour. In the emergency, he was given 2 doses of sodium bicarb 50 mill equivalents each and 10 units of insulin and Lokelma. He is currently on 2 L of oxygen by nasal cannula. Chest x-ray was reviewed and there is no acute abnormalities. 07/23/2023, the patient is awake and alert and the patient was taken off the insulin drip 6:00 this morning. He was provided breakfast and following that the patient was transition to Levemir insulin 30 units and NovoLog 7 units with meals 3 times daily and sliding scale coverage. He is communicating. No tachycardia. Most recent blood sugars at 208. The patient is currently on D5 half-normal saline at rate of 50 cc an hour. The white cell count is dropped down to 18.3 with a hemoglobin of 9.2. The patient's serum bicarb is at 18 with a gap of 9 and a sodium level of 132. BUN is at 14 with a creatinine of 0.6. No tachycardia. No altered mentation. He is communicating. He is on room air oxygen with a pulse ox of 99%. Chest x-ray from yesterday showed no acute abnormalities. No focal neurological deficits. No nausea vomiting or abdominal pain. No other significant complaints otherwise for now. Objective - Vital Signs Vital signs: Vital Signs Temp 98.1 F 07/23/23 08:00 Pulse 89 07/23/23 08:00 Resp 13 07/23/23 08:00 BP 120/84 07/23/23 08:00 Pulse Ox 99 07/23/23 08:00 FiO2 Intake & Output 07/22/23 07/23/23 07/23/23 18:59 06:59 18:59 Intake Total 2470.972 1917.923 50 Output Total 1350 580 Balance 6981.069 3019.923 50 Weight 54.431 kg 64 kg Intake: IV 1650 50 D5-0.45% NaCl with KCl 1650 50 20Meq/l 1,000 ml @ 50 mls /hr IV .Q20H YAEL Rx#: [id number] Intake, IV Titration 1430.972 47.923 Amount D5-0.45% NaCl with KCl 600 20Meq/l 1,000 ml @ 50 mls /hr IV .Q20H YAEL Rx#: [id number] Insulin Regular 100 unit 30.972 47.923 In Sodium Chloride 0.9% 100 ml @ 0.1 UNITS/KG/HR 5.498 mls/hr IV .[id number] YAEL Rx#:[id number] Sodium Chloride 0.9% 1, 800 000 ml @ 200 mls/hr IV . Q5H YAEL Rx#:[id number] Oral 1040 220 Output: Urine 1250 580 Emesis 100 Other: Voiding Method Urinal Urinal - Exam GENERAL EXAM: Alert, 27-year-old white male, awake and alert and communicating HEAD: Normocephalic and atraumatic EYES: Normal reaction of pupils, equal size. NOSE: Clear with pink turbinates. THROAT: No erythema or exudates. NECK: No masses, no JVD. CHEST: No chest wall deformity. LUNGS: Equal air entry with no crackles, wheeze, rhonchi or dullness. No conversational dyspnea or accessory muscle use.. CVS: S1 and S2 normal with grade 1 systolic murmur, regular rhythm. No other extra heart sounds ABDOMEN: No hepatosplenomegaly, active bowel sounds, no guarding or rigidity. SPINE: No scoliosis or deformity SKIN: No rashes CENTRAL NERVOUS SYSTEM: No focal deficits, tone is normal in all 4 extremities. EXTREMITIES: There is no peripheral edema, clubbing, or cyanosis. Peripheral pulses are intact. - Labs CBC & Chem 7: 07/23/23 04:01 07/23/23 04:01 Labs: Abnormal Lab Results - Last 24 Hours (Table) 07/22/23 07/22/23 07/22/23 Range/Units 07:57 07:57 07:57 WBC (3.8-10.6) k/uL RBC (4.30-5.90) m/uL Hgb (13.0-17.5) gm/dL Hct (39.0-53.0) % MCV (80.0-100.0) fL MCHC (31.0-37.0) g/dL RDW (11.5-15.5) % Plt Count (150-450) k/uL Neutrophils # (1.3-7.7) k/uL Monocytes # (0-1.0) k/uL VBG pH 6.84 L* (7.31-7.41) VBG pCO2 17 L* (37-51) mmHg VBG HCO3 3 L* (24-28) mmol/L Sodium (137-145) mmol/L Potassium 6.1 H* (3.5-5.1) mmol/L Chloride 95 L (98-107) mmol/L Carbon Dioxide <5 L* (22-30) mmol/L BUN 28 H (9-20) mg/dL Creatinine 1.81 H (0.66-1.25) mg/dL Glucose 982 H* (74-99) mg/dL POC Glucose (mg/dL) (70-110) mg/dL Plasma Lactic Acid Len 7.5 H* (0.7-2.0) mmol/L Calcium (8.4-10.2) mg/dL Phosphorus (2.5-4.5) mg/dL Alkaline Phosphatase 138 H (38-126) U/L Total Protein (6.3-8.2) g/dL Albumin (3.5-5.0) g/dL Urine Glucose (UA) (Negative) Urine Ketones (Negative) 07/22/23 07/22/23 07/22/23 Range/Units 09:26 09:32 09:53 WBC (3.8-10.6) k/uL RBC (4.30-5.90) m/uL Hgb (13.0-17.5) gm/dL Hct (39.0-53.0) % MCV (80.0-100.0) fL MCHC (31.0-37.0) g/dL RDW (11.5-15.5) % Plt Count (150-450) k/uL Neutrophils # (1.3-7.7) k/uL Monocytes # (0-1.0) k/uL VBG pH (7.31-7.41) VBG pCO2 (37-51) mmHg VBG HCO3 (24-28) mmol/L Sodium (137-145) mmol/L Potassium (3.5-5.1) mmol/L Chloride (98-107) mmol/L Carbon Dioxide (22-30) mmol/L BUN (9-20) mg/dL Creatinine (0.66-1.25) mg/dL Glucose (74-99) mg/dL POC Glucose (mg/dL) >600 H >600 H (70-110) mg/dL Plasma Lactic Acid Len (0.7-2.0) mmol/L Calcium (8.4-10.2) mg/dL Phosphorus (2.5-4.5) mg/dL Alkaline Phosphatase (38-126) U/L Total Protein (6.3-8.2) g/dL Albumin (3.5-5.0) g/dL Urine Glucose (UA) 4+ H (Negative) Urine Ketones 4+ H (Negative) 07/22/23 07/22/23 07/22/23 Range/Units 10:10 11:02 11:27 WBC (3.8-10.6) k/uL RBC (4.30-5.90) m/uL Hgb (13.0-17.5) gm/dL Hct (39.0-53.0) % MCV (80.0-100.0) fL MCHC (31.0-37.0) g/dL RDW (11.5-15.5) % Plt Count (150-450) k/uL Neutrophils # (1.3-7.7) k/uL Monocytes # (0-1.0) k/uL VBG pH (7.31-7.41) VBG pCO2 (37-51) mmHg VBG HCO3 (24-28) mmol/L Sodium 148 H (137-145) mmol/L Potassium (3.5-5.1) mmol/L Chloride 114 H (98-107) mmol/L Carbon Dioxide <5 L* (22-30) mmol/L BUN 26 H (9-20) mg/dL Creatinine (0.66-1.25) mg/dL Glucose 547 H* (74-99) mg/dL POC Glucose (mg/dL) >600 H 556 H (70-110) mg/dL Plasma Lactic Acid Len (0.7-2.0) mmol/L Calcium (8.4-10.2) mg/dL Phosphorus 5.8 H (2.5-4.5) mg/dL Alkaline Phosphatase (38-126) U/L Total Protein (6.3-8.2) g/dL Albumin (3.5-5.0) g/dL Urine Glucose (UA) (Negative) Urine Ketones (Negative) 07/22/23 07/22/23 07/22/23 Range/Units 11:27 11:27 12:07 WBC 31.1 H (3.8-10.6) k/uL RBC 3.96 L (4.30-5.90) m/uL Hgb 11.1 L (13.0-17.5) gm/dL Hct (39.0-53.0) % MCV 101.2 H D (80.0-100.0) fL MCHC 27.8 L (31.0-37.0) g/dL RDW 16.9 H (11.5-15.5) % Plt Count 567 H (150-450) k/uL Neutrophils # 26.1 H (1.3-7.7) k/uL Monocytes # 1.6 H (0-1.0) k/uL VBG pH (7.31-7.41) VBG pCO2 (37-51) mmHg VBG HCO3 (24-28) mmol/L Sodium (137-145) mmol/L Potassium (3.5-5.1) mmol/L Chloride (98-107) mmol/L Carbon Dioxide (22-30) mmol/L BUN (9-20) mg/dL Creatinine (0.66-1.25) mg/dL Glucose (74-99) mg/dL POC Glucose (mg/dL) 428 H (70-110) mg/dL Plasma Lactic Acid Len 5.2 H* (0.7-2.0) mmol/L Calcium (8.4-10.2) mg/dL Phosphorus (2.5-4.5) mg/dL Alkaline Phosphatase (38-126) U/L Total Protein (6.3-8.2) g/dL Albumin (3.5-5.0) g/dL Urine Glucose (UA) (Negative) Urine Ketones (Negative) 07/22/23 07/22/23 07/22/23 Range/Units 13:04 14:12 14:36 WBC (3.8-10.6) k/uL RBC (4.30-5.90) m/uL Hgb (13.0-17.5) gm/dL Hct (39.0-53.0) % MCV (80.0-100.0) fL MCHC (31.0-37.0) g/dL RDW (11.5-15.5) % Plt Count (150-450) k/uL Neutrophils # (1.3-7.7) k/uL Monocytes # (0-1.0) k/uL VBG pH (7.31-7.41) VBG pCO2 (37-51) mmHg VBG HCO3 (24-28) mmol/L Sodium (137-145) mmol/L Potassium (3.5-5.1) mmol/L Chloride (98-107) mmol/L Carbon Dioxide (22-30) mmol/L BUN (9-20) mg/dL Creatinine (0.66-1.25) mg/dL Glucose (74-99) mg/dL POC Glucose (mg/dL) 390 H 289 H (70-110) mg/dL Plasma Lactic Acid Len 4.4 H* (0.7-2.0) mmol/L Calcium (8.4-10.2) mg/dL Phosphorus (2.5-4.5) mg/dL Alkaline Phosphatase (38-126) U/L Total Protein (6.3-8.2) g/dL Albumin (3.5-5.0) g/dL Urine Glucose (UA) (Negative) Urine Ketones (Negative) 07/22/23 07/22/23 07/22/23 Range/Units 15:03 16:37 17:09 WBC (3.8-10.6) k/uL RBC (4.30-5.90) m/uL Hgb (13.0-17.5) gm/dL Hct (39.0-53.0) % MCV (80.0-100.0) fL MCHC (31.0-37.0) g/dL RDW (11.5-15.5) % Plt Count (150-450) k/uL Neutrophils # (1.3-7.7) k/uL Monocytes # (0-1.0) k/uL VBG pH (7.31-7.41) VBG pCO2 (37-51) mmHg VBG HCO3 (24-28) mmol/L Sodium (137-145) mmol/L Potassium (3.5-5.1) mmol/L Chloride 111 H (98-107) mmol/L Carbon Dioxide 16 L (22-30) mmol/L BUN (9-20) mg/dL Creatinine (0.66-1.25) mg/dL Glucose 192 H (74-99) mg/dL POC Glucose (mg/dL) 271 H 217 H (70-110) mg/dL Plasma Lactic Acid Len (0.7-2.0) mmol/L Calcium (8.4-10.2) mg/dL Phosphorus 2.4 L (2.5-4.5) mg/dL Alkaline Phosphatase (38-126) U/L Total Protein (6.3-8.2) g/dL Albumin (3.5-5.0) g/dL Urine Glucose (UA) (Negative) Urine Ketones (Negative) 07/22/23 07/22/23 07/22/23 Range/Units 17:09 17:32 18:16 WBC (3.8-10.6) k/uL RBC (4.30-5.90) m/uL Hgb (13.0-17.5) gm/dL Hct (39.0-53.0) % MCV (80.0-100.0) fL MCHC (31.0-37.0) g/dL RDW (11.5-15.5) % Plt Count (150-450) k/uL Neutrophils # (1.3-7.7) k/uL Monocytes # (0-1.0) k/uL VBG pH (7.31-7.41) VBG pCO2 (37-51) mmHg VBG HCO3 (24-28) mmol/L Sodium (137-145) mmol/L Potassium (3.5-5.1) mmol/L Chloride (98-107) mmol/L Carbon Dioxide (22-30) mmol/L BUN (9-20) mg/dL Creatinine (0.66-1.25) mg/dL Glucose (74-99) mg/dL POC Glucose (mg/dL) 229 H 226 H (70-110) mg/dL Plasma Lactic Acid Len 3.5 H* (0.7-2.0) mmol/L Calcium (8.4-10.2) mg/dL Phosphorus (2.5-4.5) mg/dL Alkaline Phosphatase (38-126) U/L Total Protein (6.3-8.2) g/dL Albumin (3.5-5.0) g/dL Urine Glucose (UA) (Negative) Urine Ketones (Negative) 07/22/23 07/22/23 07/22/23 Range/Units 19:07 19:54 20:57 WBC (3.8-10.6) k/uL RBC (4.30-5.90) m/uL Hgb (13.0-17.5) gm/dL Hct (39.0-53.0) % MCV (80.0-100.0) fL MCHC (31.0-37.0) g/dL RDW (11.5-15.5) % Plt Count (150-450) k/uL Neutrophils # (1.3-7.7) k/uL Monocytes # (0-1.0) k/uL VBG pH (7.31-7.41) VBG pCO2 (37-51) mmHg VBG HCO3 (24-28) mmol/L Sodium (137-145) mmol/L Potassium (3.5-5.1) mmol/L Chloride (98-107) mmol/L Carbon Dioxide (22-30) mmol/L BUN (9-20) mg/dL Creatinine (0.66-1.25) mg/dL Glucose (74-99) mg/dL POC Glucose (mg/dL) 178 H 171 H 124 H (70-110) mg/dL Plasma Lactic Acid Len (0.7-2.0) mmol/L Calcium (8.4-10.2) mg/dL Phosphorus (2.5-4.5) mg/dL Alkaline Phosphatase (38-126) U/L Total Protein (6.3-8.2) g/dL Albumin (3.5-5.0) g/dL Urine Glucose (UA) (Negative) Urine Ketones (Negative) 07/22/23 07/23/23 07/23/23 Range/Units 23:09 00:08 00:55 WBC (3.8-10.6) k/uL RBC (4.30-5.90) m/uL Hgb (13.0-17.5) gm/dL Hct (39.0-53.0) % MCV (80.0-100.0) fL MCHC (31.0-37.0) g/dL RDW (11.5-15.5) % Plt Count (150-450) k/uL Neutrophils # (1.3-7.7) k/uL Monocytes # (0-1.0) k/uL VBG pH (7.31-7.41) VBG pCO2 (37-51) mmHg VBG HCO3 (24-28) mmol/L Sodium 134 L (137-145) mmol/L Potassium (3.5-5.1) mmol/L Chloride (98-107) mmol/L Carbon Dioxide 20 L (22-30) mmol/L BUN (9-20) mg/dL Creatinine 0.59 L (0.66-1.25) mg/dL Glucose 103 H (74-99) mg/dL POC Glucose (mg/dL) 119 H 144 H (70-110) mg/dL Plasma Lactic Acid Len (0.7-2.0) mmol/L Calcium 8.1 L (8.4-10.2) mg/dL Phosphorus 2.3 L (2.5-4.5) mg/dL Alkaline Phosphatase (38-126) U/L Total Protein (6.3-8.2) g/dL Albumin (3.5-5.0) g/dL Urine Glucose (UA) (Negative) Urine Ketones (Negative) 07/23/23 07/23/23 07/23/23 Range/Units 02:00 02:53 03:53 WBC (3.8-10.6) k/uL RBC (4.30-5.90) m/uL Hgb (13.0-17.5) gm/dL Hct (39.0-53.0) % MCV (80.0-100.0) fL MCHC (31.0-37.0) g/dL RDW (11.5-15.5) % Plt Count (150-450) k/uL Neutrophils # (1.3-7.7) k/uL Monocytes # (0-1.0) k/uL VBG pH (7.31-7.41) VBG pCO2 (37-51) mmHg VBG HCO3 (24-28) mmol/L Sodium (137-145) mmol/L Potassium (3.5-5.1) mmol/L Chloride (98-107) mmol/L Carbon Dioxide (22-30) mmol/L BUN (9-20) mg/dL Creatinine (0.66-1.25) mg/dL Glucose (74-99) mg/dL POC Glucose (mg/dL) 180 H 191 H 180 H (70-110) mg/dL Plasma Lactic Acid Len (0.7-2.0) mmol/L Calcium (8.4-10.2) mg/dL Phosphorus (2.5-4.5) mg/dL Alkaline Phosphatase (38-126) U/L Total Protein (6.3-8.2) g/dL Albumin (3.5-5.0) g/dL Urine Glucose (UA) (Negative) Urine Ketones (Negative) 07/23/23 07/23/23 07/23/23 Range/Units 04:01 04:01 04:53 WBC 18.3 H (3.8-10.6) k/uL RBC 3.12 L (4.30-5.90) m/uL Hgb 9.2 L D (13.0-17.5) gm/dL Hct 27.5 L (39.0-53.0) % MCV (80.0-100.0) fL MCHC (31.0-37.0) g/dL RDW 17.6 H (11.5-15.5) % Plt Count (150-450) k/uL Neutrophils # 14.8 H (1.3-7.7) k/uL Monocytes # (0-1.0) k/uL VBG pH (7.31-7.41) VBG pCO2 (37-51) mmHg VBG HCO3 (24-28) mmol/L Sodium 132 L (137-145) mmol/L Potassium (3.5-5.1) mmol/L Chloride (98-107) mmol/L Carbon Dioxide 18 L (22-30) mmol/L BUN (9-20) mg/dL Creatinine 0.60 L (0.66-1.25) mg/dL Glucose 176 H (74-99) mg/dL POC Glucose (mg/dL) 208 H (70-110) mg/dL Plasma Lactic Acid Len (0.7-2.0) mmol/L Calcium 8.1 L (8.4-10.2) mg/dL Phosphorus (2.5-4.5) mg/dL Alkaline Phosphatase (38-126) U/L Total Protein 5.1 L (6.3-8.2) g/dL Albumin 2.9 L (3.5-5.0) g/dL Urine Glucose (UA) (Negative) Urine Ketones (Negative) 07/23/23 07/23/23 Range/Units 05:53 06:59 WBC (3.8-10.6) k/uL RBC (4.30-5.90) m/uL Hgb (13.0-17.5) gm/dL Hct (39.0-53.0) % MCV (80.0-100.0) fL MCHC (31.0-37.0) g/dL RDW (11.5-15.5) % Plt Count (150-450) k/uL Neutrophils # (1.3-7.7) k/uL Monocytes # (0-1.0) k/uL VBG pH (7.31-7.41) VBG pCO2 (37-51) mmHg VBG HCO3 (24-28) mmol/L Sodium (137-145) mmol/L Potassium (3.5-5.1) mmol/L Chloride (98-107) mmol/L Carbon Dioxide (22-30) mmol/L BUN (9-20) mg/dL Creatinine (0.66-1.25) mg/dL Glucose (74-99) mg/dL POC Glucose (mg/dL) 199 H 210 H (70-110) mg/dL Plasma Lactic Acid Len (0.7-2.0) mmol/L Calcium (8.4-10.2) mg/dL Phosphorus (2.5-4.5) mg/dL Alkaline Phosphatase (38-126) U/L Total Protein (6.3-8.2) g/dL Albumin (3.5-5.0) g/dL Urine Glucose (UA) (Negative) Urine Ketones (Negative) Assessment and Plan Plan: Acute diabetic ketoacidosis, likely secondary to medication noncompliance. Patient has had numerous episodes of DKA, recently discharged on 07/10/2023 for the same, recovered Severe anion gap metabolic acidosis, secondary to above, recovered Severe dehydration, recovered Acute kidney injury, prerenal, secondary to above, recovered Acute leukocytosis secondary to above, improving Hyperkalemia, secondary to above, improved Type 1 diabetes mellitus, with poor medication compliance. Acute leukocytosis, likely reactive to DKA, and the patient supposed to be on Levemir insulin 30 units along with 7 units with meals 3 times daily on outpatient basis. Essentially noncompliant. Does not take his medication. Diabetic neuropathy History of major depression Chronic marijuana use Chronic ongoing nicotine dependence Plan: Levemir insulin 30 units along with NovoLog 7 units with meals + scale coverage, and insulin drip has been discontinued Anion gap is closed and the patient was provided diet Electrolytes were noted Heparin subcu for DVT prophylaxis IV Protonix We will continue to follow Will transfer this patient to the medical floor today.
[2023-07-23 15:54] VITALS: BP 105/72; PULSE 75; RESP 18; TEMP 97.1
[2023-07-23 17:18] LABS: Glucose,Whole Blood 96 mg/dL (70-110)
--- NOTE | 2023-07-23 21:44 | DS ---
DISCHARGE SUMMARY CHIEF COMPLAINT: Diabetic ketoacidosis. HISTORY OF PRESENT ILLNESS AND PHYSICAL EXAM: Details of this man's history and physical can be found in the initial workup. LABORATORY STUDIES: While he was in the hospital, he had laboratory studies, details of which can be found in the laboratory section of his chart. COURSE IN THE HOSPITAL: After admission, he was placed on bedrest, started on intravenous fluids and DKA protocol in ICU. Stabilized and was transitioned. He was doing well and it was felt that he could go home on the . Nurses had detected that he was depressed and recommended a psychiatric consult. He has been seen in consult by Psychiatry numerous times in the past. He was actually on - once and was admitted to a psychiatric hospital in the [place] area. No matter what anyone does or tries to do, he remains very depressed. Psychiatry declined seeing him and that he has always been noncompliant. FINAL DIAGNOSIS: Diabetic ketoacidosis. OPERATIONS: None. CONSULTATIONS: Intensive Medicine. He is improved. MMODL / IJN: [id number] /
--- NOTE | 2023-07-23 21:47 | HP ---
HISTORY AND PHYSICAL CHIEF COMPLAINT: Diabetic ketoacidosis. HISTORY OF PRESENT ILLNESS: This gentleman is back again with diabetic ketoacidosis and will be admitted. He is delirious. REVIEW OF SYSTEMS: Unremarkable. PHYSICAL EXAMINATION: HEAD, EARS, EYES, NOSE, MOUTH AND THROAT: Normal. Mucous membranes are dry. NECK: Supple. CHEST: Clear. CARDIAC: Reveals sinus rhythm with no murmur. ABDOMEN: Flat and soft. EXTREMITIES: Normal. NEUROLOGICAL: He is somewhat lethargic and he is delirious. ASSESSMENT: Admitted to the hospital with diagnosis of diabetic ketoacidosis. PLAN: 1. Bedrest. 2. IV fluids. 3. Diabetic ketoacidosis protocol with a consult with bridge repairer. MMODL / IJN: [id number] /
--- NOTE | 2023-07-24 18:59 | MISC ---
MISCELLANOUS REPORT Diabetic ketoacidosis due to noncompliance in taking insulin. MMSHANEL / IJN: [id number] /
== END 2023-07-23 18:16 | disposition home or self-care (01) | DRG 420 ==
LOC: EC 07:35 → 2SICU 09:11 → 4SSUR 07-23 15:28
PROVIDERS: ADMIT Family Medicine; ATTEND Family Medicine
DX: E10.10 Type 1 diabetes mellitus with ketoacidosis without coma (principal); I10 Essential (primary) hypertension; Z79.4 Long term (current) use of insulin; T38.3X6A Underdosing of insulin and oral hypoglycemic [antidiabetic] drugs, initial encounter; Z91.128 Patient's intentional underdosing of medication regimen for other reason; F41.9 Anxiety disorder, unspecified; F32.A Depression, unspecified; L30.9 Dermatitis, unspecified; E10.40 Type 1 diabetes mellitus with diabetic neuropathy, unspecified; E86.0 Dehydration; E87.5 Hyperkalemia; J45.909 Unspecified asthma, uncomplicated; N17.9 Acute kidney failure, unspecified; Z79.899 Other long term (current) drug therapy; Z82.49 Family history of ischemic heart disease and other diseases of the circulatory system; Z91.199 Patient's noncompliance with other medical treatment and regimen due to unspecified reason; Z28.310 Unvaccinated for COVID-19; Z28.21 Immunization not carried out because of patient refusal
CPT/HCPCS: 36415; 71045; 80048; 80051; 80053; 81003; 82009; 82150; 82565; 82803; 82947; 83605; 83690; 83735; 84100; 84520; 85025; 85610; 85730; 87636; 93005; 94640; 96365; 96366; 96375; 99291

== ENCOUNTER 2023-07-26 14:50 | Inpatient (IN) | payer OTHER ==
[2023-07-26 15:30] LABS: Glucose,Whole Blood >600 mg/dL (70-110)
[2023-07-26] MEDS: SODIUM CHLORIDE 0.9% 1,000 ML IV ONE ×2 (15:41)
[2023-07-26 16:09] LABS: ALT 27 U/L (4-49); AST 25 U/L (17-59); African American GFR (CKD) 75 (>60 ml/min/1.73 sqM); Albumin 4.6 g/dL (3.5-5.0); Alkaline Phosphatase 110 U/L (38-126); Blood Urea Nitrogen 28 mg/dL (9-20); Calcium 9.3 mg/dL (8.4-10.2); Chloride 98 mmol/L (98-107); Non-African American GFR(CKD) 65 (>60 ml/min/1.73 sqM); Potassium 5.6 mmol/L (3.5-5.1); Sodium 140 mmol/L (137-145); Total Bilirubin 0.3 mg/dL (0.2-1.3); Total Protein 6.6 g/dL (6.3-8.2)
[2023-07-26 16:12] LABS: Anisocytosis Slight; Basophils # (A) 0.1 k/uL (0-0.2); Basophils % (A) 1 %; Eosinophils # (A) 0.1 k/uL (0-0.7); Eosinophils % (A) 0 %; HCT 37.8 % (39.0-53.0); HGB 11.2 gm/dL (13.0-17.5); Hypochromasia Marked; Lymphocytes # (A) 1.5 k/uL (1.0-4.8); Lymphocytes % (A) 9 %; MCH 29.4 pg (25.0-35.0); MCHC 29.5 g/dL (31.0-37.0); Macrocytosis Slight; Mean Platelet Volume 8.4; Monocytes # (A) 0.4 k/uL (0-1.0); Monocytes % (A) 3 %; Neutrophils # (A) 14.1 k/uL (1.3-7.7); Neutrophils % (A) 87 %; Platelet Count 440 k/uL (150-450); WBC 16.2 k/uL (3.8-10.6)
[2023-07-26 16:14] LABS: MCV 99.4 fL (80.0-100.0)
[2023-07-26 16:26] LABS: Carbon Dioxide <5 mmol/L (22-30); Glucose 724 mg/dL (74-99)
--- NOTE | 2023-07-26 16:52 | ED ---
General Adult HPI - General Chief complaint: Recheck/Abnormal Lab/Rx Stated complaint: Hyperglycemia Time Seen by Provider: 07/26/23 15:05 Source: EMS Mode of arrival: EMS Limitations: no limitations - History of Present Illness Initial comments: 27-year-old male with history of type 1 diabetes who presents emergency department with nausea and vomiting. Patient is well-known for recurrent DKA. Mother called EMS today. States that the patient began vomiting and she noted it was dark in color. She did give him 7 units of his insulin. She reports that he takes his insulin as it is directed. Patient just released from the hospital 2 days ago for same complaint. Patient comes in and cannot provide any history due to lethargy. Glucose monitor for EMS read "high". - Related Data Home Medications Medication Instructions Recorded Confirmed Insulin Detemir (Levemir) [Levemir] 30 unit SQ HS 03/07/23 07/26/23 Ergocalciferol [Vitamin D2 (1250 1,250 mcg PO Q30D 04/29/23 07/26/23 Mcg = 50577 Iu)] Famotidine [Pepcid] 20 mg PO BID 04/29/23 07/26/23 Gabapentin 600 mg PO TID 04/29/23 07/26/23 Insulin Lispro [Insulin Lispro 7 units SQ AC-TID 04/29/23 07/26/23 Kwikpen U-100] Losartan Potassium 50 mg PO DAILY 04/29/23 07/26/23 Mirtazapine 7.5 mg PO HS 04/29/23 07/26/23 Allergies Allergy/AdvReac Type Severity Reaction Status Date / Time No Known Allergies Allergy Verified 07/26/23 17:37 Review of Systems ROS Statement: Those systems with pertinent positive or pertinent negative responses have been documented in the HPI. ROS Other: All systems not noted in ROS Statement are negative. Past Medical History Past Medical History: Asthma, Diabetes Mellitus, Neurologic Disorder, Skin Disorder Additional Past Medical History / Comment(s): IDDM type I, neuropathy bilateral feet, DKA, eczema. History of Any Multi-Drug Resistant Organisms: None Reported Past Surgical History: Adenoidectomy Additional Past Surgical History / Comment(s): 2003 Recent EGD- gastritis Past Anesthesia/Blood Transfusion Reactions: No Reported Reaction Past Psychological History: Anxiety, Depression Smoking Status: Current every day smoker Past Alcohol Use History: None Reported Past Drug Use History: Marijuana - Past Family History Mother Family Medical History: CVA/TIA Additional Family Medical History / Comment(s): TIA Father Family Medical History: Hyperlipidemia, Hypertension Additional Family Medical History / Comment(s): . General Exam General appearance: lethargic Head exam: Present: atraumatic, normocephalic, normal inspection Eye exam: Present: normal appearance, PERRL, EOMI. Absent: scleral icterus, conjunctival injection, periorbital swelling ENT exam: Present: mucous membranes dry Neck exam: Present: normal inspection. Absent: tenderness, meningismus, lymphadenopathy Respiratory exam: Present: other (Tachypnea) Cardiovascular Exam: Present: normal rhythm, tachycardia GI/Abdominal exam: Present: soft, normal bowel sounds. Absent: distended, tenderness, guarding, rebound, rigid Neurological exam: Present: altered Skin exam: Present: dry Course Vital Signs 07/26/23 07/26/23 07/26/23 14:57 15:37 16:00 Temperature 97.5 F L Pulse Rate 131 H 125 H 115 H Respiratory 18 31 H 20 Rate Blood Pressure 99/73 99/73 110/76 O2 Sat by Pulse 100 100 100 Oximetry 07/26/23 07/26/23 07/26/23 16:30 17:00 17:30 Temperature Pulse Rate 107 H 107 H 104 H Respiratory 20 15 12 Rate Blood Pressure 100/63 97/59 74/59 O2 Sat by Pulse 100 100 98 Oximetry 07/26/23 07/26/23 07/26/23 18:00 18:30 22:17 Temperature 98.7 F Pulse Rate 110 H 120 H 110 H Respiratory 12 17 18 Rate Blood Pressure 85/55 91/58 90/55 O2 Sat by Pulse 98 100 Oximetry 07/27/23 07/27/23 07/27/23 02:15 06:31 07:38 Temperature 98.8 F Pulse Rate 93 101 H 106 H Respiratory 18 18 16 Rate Blood Pressure 100/66 114/85 O2 Sat by Pulse 98 96 99 Oximetry 07/27/23 07/27/23 07/27/23 08:03 10:30 13:58 Temperature 97.3 F L 97.9 F Pulse Rate 122 H 96 Respiratory 16 16 Rate Blood Pressure 101/56 112/81 O2 Sat by Pulse 99 99 Oximetry 03/08/1607/27/23 07/27/23 17:04 18:50 19:44 Temperature 97.6 F Pulse Rate 101 H 100 101 H Respiratory 18 16 17 Rate Blood Pressure 115/78 93/62 102/66 O2 Sat by Pulse 99 98 99 Oximetry 07/27/23 07/28/23 07/28/23 23:59 02:53 05:55 Temperature Pulse Rate 100 80 72 Respiratory 19 18 19 Rate Blood Pressure 109/72 108/75 O2 Sat by Pulse 99 99 98 Oximetry 07/28/23 07/28/23 07/28/23 06:00 08:53 10:00 Temperature Pulse Rate 104 H 78 85 Respiratory 17 18 16 Rate Blood Pressure 103/77 115/80 130/86 O2 Sat by Pulse 98 98 98 Oximetry 07/28/23 07/28/23 07/28/23 12:00 13:54 15:34 Temperature Pulse Rate 83 85 84 Respiratory 20 16 16 Rate Blood Pressure 139/98 131/97 140/89 O2 Sat by Pulse 98 98 98 Oximetry Procedures - ABG Interpretation Ph: 7.21 PCO2: 18 PO2: 113 Bicarbonate: 7.4 Interpretation: metabolic acidosis Medical Decision Making - Medical Decision Making Was pt. sent in by a medical professional or institution (, PA, CLUTCH SPECIALIST, urgent care, hospital, or fci...) When possible be specific @ -No Did you speak to anyone other than the patient for history (EMS, parent, family, police, friend...)? What history was obtained from this source @ -EMS Did you review nursing and triage notes (agree or disagree)? Why? @ -I reviewed and agree with nursing and triage notes Were old charts reviewed (outside hosp., previous admission, EMS record, old EKG, old radiological studies, urgent care reports/EKG's, fci records)? Report findings @ -Reviewed patient's last admission summary from July 23 Differential Diagnosis (chest pain, altered mental status, abdominal pain women, abdominal pain men, vaginal bleeding, weakness, fever, dyspnea, syncope, hea dache, dizziness, GI bleed, back pain, seizure, CVA, palpatations, mental health, musculoskeletal)? @ -Differential Altered Mental Status: Hypoglycemia, DKA, hypercapnia, ETOH, overdose, CO poisoning, trauma, myxedema coma, HTN encephalopathy, infection, encephalitis, psychosis, intercranial hemor rhage, hepatic encephalopathy, meningitis, CVA, this is not meant to be an all- inclusive list EKG interpreted by me (3pts min.). @ -Yes and demonstrates sinus tach with a rate of 131. IA interval 164. QRS 94. QTc of 389. Peaked T waves in V3 through V4. X-rays interpreted by me (1pt min.). @ -None done CT interpreted by me (1pt min.). @ -None done U/S interpreted by me (1pt. min.). @ -None done What testing was considered but not performed or refused? (CT, X-rays, U/S, labs)? Why? @ -None What meds were considered but not given or refused? Why? @ -None Did you discuss the management of the patient with other professionals (professionals i.e. , PA, CLUTCH SPECIALIST, lab, RT, psych nurse, social studies teacher, engine hostler, teacher, aoc operations intelligence officer, catalytic case operator)? Give summary @ -Spoke with Dr. Valenzuela for admission Was smoking cessation discussed for >3mins.? @ -No Was critical care preformed (if so, how long)? @ -Yes, 35 minutes for management of DKA Were there social determinants of health that impacted care today? How? (Homelessness, low income, unemployed, alcoholism, drug addiction, transpo rtation, low edu. Level, literacy, decrease access to med. care, long-term, rehab)? @ -Medical noncompliance Was there de-escalation of care discussed even if they declined (Discuss DNR or withdrawal of care, Hospice)? DNR status @ -No What co-morbidities impacted this encounter? (DM, HTN, Smoking, COPD, CAD, Cancer, CVA, ARF, Chemo, Hep., AIDS, mental health diagnosis, sleep apnea, morbid obesity)? @ -Type 1 diabetes Was patient admitted / discharged? Hospital course, mention meds given and route , prescriptions, significant lab abnormalities, going to OR and other pertinent info. @ -Upon arrival patient is placed into room 2. Thorough history and physical exam was performed. IV access was established. Laboratory studies are conducted. Patient was given 2 L bolus of normal saline followed by an insulin drip as the patient does demonstrate DKA. Recommended admission. Spoke with Dr. Valenzuela for the admission. Patient was agreeable and is awaiting a bed on the floor Undiagnosed new problem with uncertain prognosis? @ -No Drug Therapy requiring intensive monitoring for toxicity (Heparin, Nitro, Insulin, Cardizem)? @ -Insulin drip Were any procedures done? @ -No Diagnosis/symptom? @ -Acute encephalopathy, acute DKA Acute, or Chronic, or Acute on Chronic? @ -Acute, recurrent Uncomplicated (without systemic symptoms) or Complicated (systemic symptoms)? @ -Complicated Side effects of treatment? @ -No Exacerbation, Progression, or Severe Exacerbation? @ -No Poses a threat to life or bodily function? How? (Chest pain, [place], [place], pneumonia, PE, COPD, DKA, ARF, appy, cholecystitis, CVA, Diverticulitis, Homicidal, Suicidal, threat to staff... and all critical care pts) @ -Yes as patient is in DKA - Lab Data Result diagrams: 07/27/23 07:32 07/27/23 20:38 Lab Results 07/26/23 07/26/23 07/26/23 Range/Units 15:27 15:34 15:34 WBC 16.2 H (3.8-10.6) k/uL RBC 3.80 L (4.30-5.90) m/uL Hgb 11.2 L (13.0-17.5) gm/dL Hct 37.8 L (39.0-53.0) % MCV 99.4 D (80.0-100.0) fL MCH 29.4 (25.0-35.0) pg MCHC 29.5 L (31.0-37.0) g/dL RDW 17.0 H (11.5-15.5) % Plt Count 440 (150-450) k/uL MPV 8.4 Neutrophils % 87 % Lymphocytes % 9 % Monocytes % 3 % Eosinophils % 0 % Basophils % 1 % Neutrophils # 14.1 H (1.3-7.7) k/uL Lymphocytes # 1.5 (1.0-4.8) k/uL Monocytes # 0.4 (0-1.0) k/uL Eosinophils # 0.1 (0-0.7) k/uL Basophils # 0.1 (0-0.2) k/uL Hypochromasia Marked Anisocytosis Slight Macrocytosis Slight Sodium (137-145) mmol/L Potassium (3.5-5.1) mmol/L Chloride (98-107) mmol/L Carbon Dioxide (22-30) mmol/L Anion Gap mmol/L BUN (9-20) mg/dL Creatinine (0.66-1.25) mg/dL Est GFR (CKD-EPI)AfAm (>60 ml/min/1.73 sqM) Est GFR (CKD-EPI)NonAf (>60 ml/min/1.73 sqM) Glucose (74-99) mg/dL POC Glucose (mg/dL) >600 H (70-110) mg/dL POC Glu Sole Leveler Machine ID Clementina Wilson Lactic Ac Sepsis Rflx Plasma Lactic Acid Len (0.7-2.0) mmol/L Calcium (8.4-10.2) mg/dL Total Bilirubin (0.2-1.3) mg/dL AST (17-59) U/L ALT (4-49) U/L Alkaline Phosphatase (38-126) U/L Total Protein (6.3-8.2) g/dL Albumin (3.5-5.0) g/dL Urine Color Urine Appearance (Clear) Urine pH (5.0-8.0) Ur Specific [place] (1.001-1.035) Urine Protein (Negative) Urine Glucose (UA) (Negative) Urine Ketones (Negative) Urine Blood (Negative) Urine Nitrite (Negative) Urine Bilirubin (Negative) Urine Urobilinogen (<2.0) mg/dL Ur Leukocyte Esterase (Negative) Urine Opiates Screen Not Detected (NotDetected) Ur Oxycodone Screen Not Detected (NotDetected) Urine Methadone Screen Not Detected (NotDetected) Ur Barbiturates Screen Not Detected (NotDetected) U Tricyclic Antidepress Not Detected (NotDetected) Ur Phencyclidine Scrn Not Detected (NotDetected) Ur Amphetamines Screen Not Detected (NotDetected) U Methamphetamines Scrn Not Detected (NotDetected) U Benzodiazepines Scrn Not Detected (NotDetected) Urine Cocaine Screen Not Detected (NotDetected) U Marijuana (THC) Screen Detected H (NotDetected) 07/26/23 07/26/23 07/26/23 Range/Units 15:34 15:34 15:34 WBC (3.8-10.6) k/uL RBC (4.30-5.90) m/uL Hgb (13.0-17.5) gm/dL Hct (39.0-53.0) % MCV (80.0-100.0) fL MCH (25.0-35.0) pg MCHC (31.0-37.0) g/dL RDW (11.5-15.5) % Plt Count (150-450) k/uL MPV Neutrophils % % Lymphocytes % % Monocytes % % Eosinophils % % Basophils % % Neutrophils # (1.3-7.7) k/uL Lymphocytes # (1.0-4.8) k/uL Monocytes # (0-1.0) k/uL Eosinophils # (0-0.7) k/uL Basophils # (0-0.2) k/uL Hypochromasia Anisocytosis Macrocytosis Sodium 140 (137-145) mmol/L Potassium 5.6 H (3.5-5.1) mmol/L Chloride 98 (98-107) mmol/L Carbon Dioxide <5 L* (22-30) mmol/L Anion Gap mmol/L BUN 28 H (9-20) mg/dL Creatinine 1.49 H (0.66-1.25) mg/dL Est GFR (CKD-EPI)AfAm 75 (>60 ml/min/1.73 sqM) Est GFR (CKD-EPI)NonAf 65 (>60 ml/min/1.73 sqM) Glucose 724 H* (74-99) mg/dL POC Glucose (mg/dL) (70-110) mg/dL POC Glu Sole Leveler Machine ID Lactic Ac Sepsis Rflx Plasma Lactic Acid Len 3.1 H* (0.7-2.0) mmol/L Calcium 9.3 (8.4-10.2) mg/dL Total Bilirubin 0.3 (0.2-1.3) mg/dL AST 25 (17-59) U/L ALT 27 (4-49) U/L Alkaline Phosphatase 110 (38-126) U/L Total Protein 6.6 (6.3-8.2) g/dL Albumin 4.6 (3.5-5.0) g/dL Urine Color Colorless Urine Appearance Clear (Clear) Urine pH 5.0 (5.0-8.0) Ur Specific [place] 1.018 (1.001-1.035) Urine Protein Negative (Negative) Urine Glucose (UA) 4+ H (Negative) Urine Ketones 4+ H (Negative) Urine Blood Negative (Negative) Urine Nitrite Negative (Negative) Urine Bilirubin Negative (Negative) Urine Urobilinogen <2.0 (<2.0) mg/dL Ur Leukocyte Esterase Negative (Negative) Urine Opiates Screen (NotDetected) Ur Oxycodone Screen (NotDetected) Urine Methadone Screen (NotDetected) Ur Barbiturates Screen (NotDetected) U Tricyclic Antidepress (NotDetected) Ur Phencyclidine Scrn (NotDetected) Ur Amphetamines Screen (NotDetected) U Methamphetamines Scrn (NotDetected) U Benzodiazepines Scrn (NotDetected) Urine Cocaine Screen (NotDetected) U Marijuana (THC) Screen (NotDetected) 07/26/23 Range/Units 16:25 WBC (3.8-10.6) k/uL RBC (4.30-5.90) m/uL Hgb (13.0-17.5) gm/dL Hct (39.0-53.0) % MCV (80.0-100.0) fL MCH (25.0-35.0) pg MCHC (31.0-37.0) g/dL RDW (11.5-15.5) % Plt Count (150-450) k/uL MPV Neutrophils % % Lymphocytes % % Monocytes % % Eosinophils % % Basophils % % Neutrophils # (1.3-7.7) k/uL Lymphocytes # (1.0-4.8) k/uL Monocytes # (0-1.0) k/uL Eosinophils # (0-0.7) k/uL Basophils # (0-0.2) k/uL Hypochromasia Anisocytosis Macrocytosis Sodium (137-145) mmol/L Potassium (3.5-5.1) mmol/L Chloride (98-107) mmol/L Carbon Dioxide (22-30) mmol/L Anion Gap mmol/L BUN (9-20) mg/dL Creatinine (0.66-1.25) mg/dL Est GFR (CKD-EPI)AfAm (>60 ml/min/1.73 sqM) Est GFR (CKD-EPI)NonAf (>60 ml/min/1.73 sqM) Glucose (74-99) mg/dL POC Glucose (mg/dL) (70-110) mg/dL POC Glu Sole Leveler Machine ID Lactic Ac Sepsis Rflx Y Plasma Lactic Acid Len (0.7-2.0) mmol/L Calcium (8.4-10.2) mg/dL Total Bilirubin (0.2-1.3) mg/dL AST (17-59) U/L ALT (4-49) U/L Alkaline Phosphatase (38-126) U/L Total Protein (6.3-8.2) g/dL Albumin (3.5-5.0) g/dL Urine Color Urine Appearance (Clear) Urine pH (5.0-8.0) Ur Specific [place] (1.001-1.035) Urine Protein (Negative) Urine Glucose (UA) (Negative) Urine Ketones (Negative) Urine Blood (Negative) Urine Nitrite (Negative) Urine Bilirubin (Negative) Urine Urobilinogen (<2.0) mg/dL Ur Leukocyte Esterase (Negative) Urine Opiates Screen (NotDetected) Ur Oxycodone Screen (NotDetected) Urine Methadone Screen (NotDetected) Ur Barbiturates Screen (NotDetected) U Tricyclic Antidepress (NotDetected) Ur Phencyclidine Scrn (NotDetected) Ur Amphetamines Screen (NotDetected) U Methamphetamines Scrn (NotDetected) U Benzodiazepines Scrn (NotDetected) Urine Cocaine Screen (NotDetected) U Marijuana (THC) Screen (NotDetected) Disposition Clinical Impression: Intractable nausea and vomiting, DKA (diabetic ketoacidoses), Tachycardia Disposition: ADMITTED IP TO THIS [facility] Condition: Stable Is patient prescribed a controlled substance at d/c from ED?: No Time of Disposition: 16:54 Decision to Admit Reason: Admit from EC Decision Date: 07/26/23 Decision Time: 16:54
[2023-07-26 17:10] LABS: Glucose,Whole Blood 382 mg/dL (70-110)
[2023-07-26 17:13] LABS: Appearance,Urine Clear (Clear); Bilirubin,Urine Negative (Negative); Blood,Urine Negative (Negative); Color,Urine Colorless; Glucose,Urine (UA) 4+ (Negative); Leukocyte Esterase,Urine Negative (Negative); Nitrite,Urine Negative (Negative); Protein,Urine Negative (Negative); Specific Gravity,Urine 1.018 (1.001-1.035); Urobilinogen,Urine <2.0 mg/dL (<2.0)
[2023-07-26 17:59] LABS: Amphetamine Screen,Urine Not Detected (NotDetected); Barbiturate Screen,Urine Not Detected (NotDetected); Benzodiazepines Screen,Urine Not Detected (NotDetected); Cocaine Screen,Urine Not Detected (NotDetected); Methadone Screen, Urine Not Detected (NotDetected); Opiate Screen,Urine Not Detected (NotDetected); Oxycodone Screen, Urine Not Detected (NotDetected); Phencyclidine Screen,Urine Not Detected (NotDetected); Tricyclic Antidepressant,Urine Not Detected (NotDetected); Urn Cannabinoid Scrn Detected (NotDetected)
[2023-07-26 18:01] LABS: Glucose,Whole Blood 374 mg/dL (70-110)
[2023-07-26 18:12] LABS: Ketones,Urine 4+ (Negative)
[2023-07-26] MEDS: INSULIN REGULAR 100 UNIT in SODIUM CHLORIDE 0.9% 100 ML IV SCH (18:29)
[2023-07-26] MEDS: SODIUM CHLORIDE 0.9% 1,000 ML IV SCH (18:29)
[2023-07-26 18:51] LABS: ABG Base Excess -20.4 mmol/L; ABG PH 7.21 (7.35-7.45); ABG PO2 113 mmHg (83-108); ABG TCO2 8 mmol/L (19-24); Allen Test Performed? Yes
[2023-07-26 18:53] LABS: ABG HCO3 7 mmol/L (21-25); ABG Oxygen Saturation 97.4 % (94-97); ABG PCO2 18 mmHg (35-45)
[2023-07-26 19:08] LABS: Glucose,Whole Blood 336 mg/dL (70-110)
[2023-07-26 20:07] LABS: African American GFR (CKD) >90 (>60 ml/min/1.73 sqM); Anion Gap 27 mmol/L; Blood Urea Nitrogen 22 mg/dL (9-20); Chloride 109 mmol/L (98-107); Glucose 324 mg/dL (74-99); Non-African American GFR(CKD) >90 (>60 ml/min/1.73 sqM); Potassium 4.7 mmol/L (3.5-5.1); Sodium 142 mmol/L (137-145)
[2023-07-26 20:19] LABS: Carbon Dioxide 6 mmol/L (22-30)
[2023-07-26 21:14] LABS: Glucose,Whole Blood 142 mg/dL (70-110)
[2023-07-26] MEDS: D5-0.45% NACL WITH KCL 20MEQ/L 1,000 ML IV SCH (22:12)
[2023-07-26] MEDS: diphenhydrAMINE 50 MG/ML 1 ML VIAL IVP STA (22:13)
[2023-07-26] MEDS: METOCLOPRAMIDE 5 MG/ML 2 ML VIAL IVP STA (22:13)
[2023-07-26] MEDS: FAMOTIDINE 20 MG TAB PO SCH (22:13)
[2023-07-26] MEDS: GABAPENTIN 300 MG CAP PO SCH (22:13)
[2023-07-26] MEDS: MIRTAZAPINE 15 MG TAB PO SCH (22:17)
[2023-07-26 22:23] LABS: Glucose,Whole Blood 83 mg/dL (70-110)
[2023-07-26 22:56] LABS: Glucose,Whole Blood 71 mg/dL (70-110)
[2023-07-27 00:16] LABS: Glucose,Whole Blood 117 mg/dL (70-110)
[2023-07-27 00:58] LABS: Glucose,Whole Blood 124 mg/dL (70-110)
[2023-07-27 01:40] LABS: African American GFR (CKD) >90 (>60 ml/min/1.73 sqM); Anion Gap 17 mmol/L; Blood Urea Nitrogen 21 mg/dL (9-20); Carbon Dioxide 13 mmol/L (22-30); Chloride 108 mmol/L (98-107); Glucose 130 mg/dL (74-99); Non-African American GFR(CKD) >90 (>60 ml/min/1.73 sqM); Potassium 4.5 mmol/L (3.5-5.1); Sodium 138 mmol/L (137-145)
[2023-07-27 02:11] LABS: Glucose,Whole Blood 108 mg/dL (70-110)
[2023-07-27 03:03] LABS: Glucose,Whole Blood 110 mg/dL (70-110)
[2023-07-27 04:14] LABS: Glucose,Whole Blood 124 mg/dL (70-110)
[2023-07-27 05:35] LABS: Glucose,Whole Blood 156 mg/dL (70-110)
[2023-07-27 06:27] LABS: Glucose,Whole Blood 180 mg/dL (70-110)
[2023-07-27 07:06] LABS: Glucose,Whole Blood 227 mg/dL (70-110)
[2023-07-27 08:00] LABS: Glucose,Whole Blood 232 mg/dL (70-110)
[2023-07-27 08:36] LABS: Anisocytosis Slight; Basophils # (A) 0.1 k/uL (0-0.2); Basophils % (A) 1 %; Eosinophils # (A) 0.1 k/uL (0-0.7); Eosinophils % (A) 1 %; HCT 33.3 % (39.0-53.0); HGB 10.2 gm/dL (13.0-17.5); Hypochromasia Marked; Lymphocytes # (A) 2.4 k/uL (1.0-4.8); Lymphocytes % (A) 15 %; MCHC 30.6 g/dL (31.0-37.0); MCV 94.8 fL (80.0-100.0); Mean Platelet Volume 7.9; Monocytes # (A) 0.9 k/uL (0-1.0); Monocytes % (A) 5 %; Neutrophils # (A) 12.5 k/uL (1.3-7.7); Neutrophils % (A) 77 %; Platelet Count 379 k/uL (150-450); RBC 3.52 m/uL (4.30-5.90); RDW 17.5 % (11.5-15.5); WBC 16.2 k/uL (3.8-10.6)
[2023-07-27 08:53] LABS: ALT 21 U/L (4-49); AST 18 U/L (17-59); African American GFR (CKD) >90 (>60 ml/min/1.73 sqM); Albumin 3.6 g/dL (3.5-5.0); Alkaline Phosphatase 102 U/L (38-126); Anion Gap 20 mmol/L; Blood Urea Nitrogen 17 mg/dL (9-20); Calcium 8.6 mg/dL (8.4-10.2); Chloride 105 mmol/L (98-107); Glucose 226 mg/dL (74-99); Non-African American GFR(CKD) >90 (>60 ml/min/1.73 sqM); Potassium 4.8 mmol/L (3.5-5.1); Sodium 134 mmol/L (137-145); Total Bilirubin 0.5 mg/dL (0.2-1.3); Total Protein 5.7 g/dL (6.3-8.2)
[2023-07-27 08:57] LABS: Carbon Dioxide 9 mmol/L (22-30)
[2023-07-27 09:09] LABS: Glucose,Whole Blood 222 mg/dL (70-110)
[2023-07-27 10:00] LABS: Glucose,Whole Blood 305 mg/dL (70-110)
[2023-07-27 11:33] LABS: Glucose,Whole Blood 407 mg/dL (70-110)
[2023-07-27 12:27] LABS: Glucose,Whole Blood 384 mg/dL (70-110)
[2023-07-27 13:21] LABS: Glucose,Whole Blood 310 mg/dL (70-110)
[2023-07-27 14:21] LABS: Glucose,Whole Blood 242 mg/dL (70-110)
[2023-07-27 15:36] LABS: Glucose,Whole Blood 200 mg/dL (70-110)
[2023-07-27 16:33] LABS: Glucose,Whole Blood 194 mg/dL (70-110)
[2023-07-27 17:25] LABS: Glucose,Whole Blood 154 mg/dL (70-110)
[2023-07-27] MEDS ORDERED: INSULIN LISPRO 100 UNIT/ML SQ SCH (17:30)
[2023-07-27] MEDS ORDERED: INSULN SQ SCH (17:30)
[2023-07-27] MEDS ORDERED: [UNRECOGNIZED DRUG - OTHER] SQ SCH (17:30)
[2023-07-27 18:24] LABS: Glucose,Whole Blood 144 mg/dL (70-110)
[2023-07-27 19:45] LABS: Glucose,Whole Blood 173 mg/dL (70-110)
[2023-07-27 20:30] LABS: Glucose,Whole Blood 173 mg/dL (70-110)
[2023-07-27] MEDS ORDERED: INSULIN DETEMIR (LEVEMIR) 100 UNIT/ML SYR SQ SCH (21:00)
[2023-07-27 21:53] LABS: African American GFR (CKD) >90 (>60 ml/min/1.73 sqM); Anion Gap 9 mmol/L; Blood Urea Nitrogen 9 mg/dL (9-20); Calcium 8.4 mg/dL (8.4-10.2); Carbon Dioxide 19 mmol/L (22-30); Chloride 100 mmol/L (98-107); Glucose 183 mg/dL (74-99); Non-African American GFR(CKD) >90 (>60 ml/min/1.73 sqM); Potassium 4.5 mmol/L (3.5-5.1); Sodium 128 mmol/L (137-145)
[2023-07-27 22:23] LABS: Glucose,Whole Blood 146 mg/dL (70-110)
--- NOTE | 2023-07-27 23:11 | HP ---
HISTORY AND PHYSICAL CHIEF COMPLAINT: DKA. HISTORY OF PRESENT ILLNESS: This is another of many admissions for this 27-year-old depressed type 1 insulin- dependent diabetic. He is noncompliant, will not take any medications, leaves the hospital, goes home, does not take his insulin and then his mother finds him in extremist and calls the ambulance. This pattern has repeated over and over and now up to every several days. Every effort has been made to try to control this situation in the past. He has been seen by Psychiatry, admitted to [facility] and even admitted to [facility] in [place]. Psychiatry will not see him any longer because he is noncompliant. I made an effort to obtain guardianship, but learned that several years ago, he had been assigned a guardian and the guardian gave up on him too because he was completely noncompliant. He has been warned and told of the risk of this behavior. REVIEW OF SYSTEMS: Not obtained. Past medical history, family history, personal and social histories are all unchanged. PHYSICAL EXAMINATION: GENERAL: He has sinus tachycardia. He is dehydrated. He is lethargic. HEAD, EARS, EYES, NOSE, AND MOUTH: Normal. CHEST: Clear. CARDIAC: Normal. ABDOMEN: Soft, flat. EXTREMITIES: Normal. NEUROLOGICAL: He is intact. ASSESSMENT: He is admitted to the hospital with diagnoses of: 1. Diabetic ketoacidosis. 2. Noncompliant individual. 3. Diabetic peripheral neuropathy. 4. Gastroparesis. 5. Depression. PLAN: Manage his ketoacidosis once again. MMODL / IJN: [id number] /
--- NOTE | 2023-07-27 23:41 | PN ---
PROGRESS NOTE DATE OF SERVICE: 07/27/2023 CHIEF COMPLAINT: Dehydration and DKA. HISTORY OF PRESENT ILLNESS: This gentleman is a little bit lethargic. Otherwise, stable. PHYSICAL EXAMINATION: CHEST: Clear. CARDIAC: Normal. ABDOMEN: Soft, nontender. IMPRESSION: 1. Diabetic ketoacidosis. 2. Depression. PLAN: Stabilize blood sugars and discharge. MMODL / IJN: [id number] /
[2023-07-28] LABS: Glucose,Whole Blood 161 mg/dL (70-110)
[2023-07-28 01:27] LABS: Glucose,Whole Blood 154 mg/dL (70-110)
[2023-07-28 02:45] LABS: Glucose,Whole Blood 141 mg/dL (70-110)
[2023-07-28 03:48] LABS: Glucose,Whole Blood 160 mg/dL (70-110)
[2023-07-28 04:56] LABS: Glucose,Whole Blood 147 mg/dL (70-110)
[2023-07-28 05:53] LABS: Glucose,Whole Blood 164 mg/dL (70-110)
[2023-07-28 06:39] LABS: Glucose,Whole Blood 153 mg/dL (70-110)
[2023-07-28 07:14] LABS: Glucose,Whole Blood 153 mg/dL (70-110)
--- NOTE | 2023-07-28 07:50 | HP ---
HISTORY AND PHYSICAL CHIEF COMPLAINT: DKA. HISTORY OF PRESENT ILLNESS: This is another recent admission for this 27-year-old noncompliant depressed type 1 diabetic. He is in and out of the hospital over time because he refuses to take insulin. DICTATION ENDS HERE GRACE / TRAMN: [id number] /
[2023-07-28 09:04] LABS: Glucose,Whole Blood 194 mg/dL (70-110)
[2023-07-28] MEDS: LOSARTAN 50 MG TAB PO SCH (09:07)
[2023-07-28 11:51] LABS: Glucose,Whole Blood 200 mg/dL (70-110)
[2023-07-28 13:34] LABS: Glucose,Whole Blood 318 mg/dL (70-110)
[2023-07-28 15:18] LABS: Glucose,Whole Blood 270 mg/dL (70-110)
[2023-07-28 15:26] VITALS: BMI 22.5
[2023-07-28 17:06] LABS: Glucose,Whole Blood 319 mg/dL (70-110)
[2023-07-28] MEDS: INSULIN ASPART (NovoLOG) 100 UNIT/ML VIAL SQ SCH ×2 (17:48→17:49)
[2023-07-28 20:08] LABS: Glucose,Whole Blood 176 mg/dL (70-110)
[2023-07-28] MEDS: INSULIN DETEMIR (LEVEMIR) 100 UNIT/ML SYR SQ SCH (21:45)
[2023-07-29 02:09] LABS: Glucose,Whole Blood 153 mg/dL (70-110)
--- NOTE | 2023-07-29 05:53 | PN ---
PROGRESS NOTE DATE OF SERVICE: 07/28/2023 CHIEF COMPLAINT: Diabetic ketoacidosis. HISTORY OF PRESENT ILLNESS: This gentleman is very lethargic. Sugars are coming down. PHYSICAL EXAMINATION: CHEST: Clear. CARDIAC: Normal. IMPRESSION: Diabetic ketoacidosis. PLAN: Continue with IV fluids and DKA management. MMODL / IJN: [id number] /
[2023-07-29 07:07] LABS: Glucose,Whole Blood 81 mg/dL (70-110)
[2023-07-29 08:33] VITALS: BP 124/86; PULSE 85; RESP 18; TEMP 97.6
[2023-07-29 11:54] LABS: Glucose,Whole Blood 80 mg/dL (70-110)
--- NOTE | 2023-07-29 20:29 | DS ---
DISCHARGE SUMMARY CHIEF COMPLAINT: DKA. HISTORY OF PRESENT ILLNESS/PHYSICAL EXAMINATION: Details of this man's history and physical can be found in the initial workup. LABORATORY STUDIES: While he was in the hospital, he had laboratory studies, details of which can be found in the laboratory section of his chart. COURSE IN THE HOSPITAL: After admission, he was placed on bedrest, started on intravenous fluids, and DKA protocol. Sugars came down. He was doing well and was rehydrated, not vomiting. On the , it was felt that he could go home. He will follow up in the office in several days, if he so chooses. FINAL DIAGNOSES: 1. Diabetic ketoacidosis. 2. Type 1 insulin-dependent diabetes mellitus. 3. Depression. OPERATIONS: None. CONSULTATIONS: None. He is improved. MMSHANEL / ALDEN: [id number] /
== END 2023-07-29 13:40 | disposition home or self-care (01) | DRG 420 ==
LOC: EC 14:50 → 3SCARD 16:54 → 5NMEDONC 07-28 14:58
PROVIDERS: ADMIT Family Medicine; ATTEND Family Medicine
DX: E10.10 Type 1 diabetes mellitus with ketoacidosis without coma (principal); E10.42 Type 1 diabetes mellitus with diabetic polyneuropathy; E10.43 Type 1 diabetes mellitus with diabetic autonomic (poly)neuropathy; E86.0 Dehydration; F17.200 Nicotine dependence, unspecified, uncomplicated; F32.A Depression, unspecified; L30.9 Dermatitis, unspecified; F41.9 Anxiety disorder, unspecified; K31.84 Gastroparesis; Z79.4 Long term (current) use of insulin; Z82.49 Family history of ischemic heart disease and other diseases of the circulatory system; Z91.199 Patient's noncompliance with other medical treatment and regimen due to unspecified reason; Z28.310 Unvaccinated for COVID-19; Z28.21 Immunization not carried out because of patient refusal; Z79.899 Other long term (current) drug therapy
CPT/HCPCS: 36415; 36600; 80048; 80051; 80053; 80306; 81003; 82565; 82805; 82947; 83605; 84100; 84520; 85025; 93005; 96361; 96365; 96366; 96375; 99291

== ENCOUNTER 2023-09-07 06:49 | Inpatient (IN) | payer OTHER ==
--- NOTE | 2023-09-07 07:14 | ED ---
General Adult HPI <Flaco Villela - Last Filed: 09/07/23 07:03> <Julian Romero - Last Filed: 09/07/23 09:15> - General Stated complaint: Hyperglycemia - History of Present Illness Initial comments: Dictation was produced using [employer] dictation software. please excuse any grammatical, word or spelling errors. Chief Complaint: 28-year-old male presents emergency department for hyperglycemia History of Present Illness: Patient 28-year-old male he has past medical history diabetes. He presents to our ER yet again for hyperglycemia and likely DKA. Patient is brought in by EMS from home. Patient is a poor historian. EMS reports that patient's blood glucose was checked and was found to be high. Unable to obtain ROS secondary to mental status (Flaco Villela) - Related Data Home Medications Medication Instructions Recorded Confirmed Insulin Detemir (Levemir) [Levemir] 30 unit SQ HS 03/07/23 07/26/23 Ergocalciferol [Vitamin D2 (1250 1,250 mcg PO Q30D 04/29/23 07/26/23 Mcg = 89888 Iu)] Famotidine [Pepcid] 20 mg PO BID 04/29/23 07/26/23 Gabapentin 600 mg PO TID 04/29/23 07/26/23 Insulin Lispro [Insulin Lispro 7 units SQ AC-TID 04/29/23 07/26/23 Kwikpen U-100] Losartan Potassium 50 mg PO DAILY 04/29/23 07/26/23 Mirtazapine 7.5 mg PO HS 04/29/23 07/26/23 Allergies Allergy/AdvReac Type Severity Reaction Status Date / Time No Known Allergies Allergy Verified 07/26/23 17:37 Review of Systems ROS Other: All systems not noted in ROS Statement are negative. <Flaco Villela - Last Filed: 09/07/23 07:03> ROS Other: All systems not noted in ROS Statement are negative. <Julian Romero - Last Filed: 09/07/23 09:15> ROS Statement: Those systems with pertinent positive or pertinent negative responses have been documented in the HPI. Past Medical History Past Medical History: Asthma, Diabetes Mellitus, Neurologic Disorder, Skin Disorder Additional Past Medical History / Comment(s): IDDM type I, neuropathy bilateral feet, DKA, eczema. History of Any Multi-Drug Resistant Organisms: None Reported Past Surgical History: Adenoidectomy Additional Past Surgical History / Comment(s): 2002 Recent EGD- gastritis Past Anesthesia/Blood Transfusion Reactions: No Reported Reaction Past Psychological History: Anxiety, Depression Smoking Status: Current every day smoker Past Alcohol Use History: None Reported Past Drug Use History: Marijuana - Past Family History Mother Family Medical History: CVA/TIA Additional Family Medical History / Comment(s): TIA Father Family Medical History: Hyperlipidemia, Hypertension Additional Family Medical History / Comment(s): . <Flaco Villela - Last Filed: 09/07/23 07:03> General Exam <Flaco Villela - Last Filed: 09/07/23 07:03> - General Exam Comments Initial Comments: PHYSICAL EXAM: General Impression: Alert and oriented x3, not in acute distress, smells of acetone HEENT: Normocephalic atraumatic, extra-ocular movements intact, pupils equal and reactive to light bilaterally, dry mucous membranes. Cardiovascular: Tachycardic Chest: kussmaul's breathing Abdomen: abdomen soft, non-tender, non-distended, no organomegaly Musculoskeletal: Pulses present and equal in all extremities, no peripheral edema Motor: no focal deficits noted Neurological: CN II-XII grossly intact, no focal motor or sensory deficits noted Skin: Intact with no visualized rashes (Flaco Villela) Course Vital Signs 09/07/23 06:59 Temperature 97.4 F L Pulse Rate 127 H Respiratory 24 Rate Blood Pressure 133/88 O2 Sat by Pulse 100 Oximetry Medical Decision Making <Flaco Villela - Last Filed: 09/07/23 07:03> - Lab Data Result diagrams: 09/07/23 08:04 <Julian Romero - Last Filed: 09/07/23 09:15> - Medical Decision Making Was pt. sent in by a medical professional or institution (, PA, PRACTICE SPECIALIST, urgent care, hospital, or group home...) When possible be specific @ -No Did you speak to anyone other than the patient for history (EMS, parent, family, police, friend...)? What history was obtained from this source @ -No Did you review nursing and triage notes (agree or disagree)? Why? @ -I reviewed and agree with nursing and triage notes Were old charts reviewed (outside hosp., previous admission, EMS record, old EKG, old radiological studies, urgent care reports/EKG's, group home records)? Report findings @ -Multiple discharge summaries reviewed showing that patient has been admitted multiple occasions for DKA Differential Diagnosis (chest pain, altered mental status, abdominal pain women, abdominal pain men, vaginal bleeding, musculoskeletal, weakness, fever, dyspnea, syncope, headache, dizziness, GI bleed, back pain, seizure, CVA, palpatations, mental health)? @ -Differential Weakness: Hypoglycemia, shock, sepsis, hyponatremia, anemia, infection, MO, ETOH, adverse medicine reaction, overdose, stroke, this is not meant to be an all-inclusive list. EKG interpreted by me (3pts min.). @ -Pending X-rays interpreted by me (1pt min.). @ -None done CT interpreted by me (1pt min.). @ -None done U/S interpreted by me (1pt. min.). @ -None done What testing was considered but not performed or refused? (CT, X-rays, U/S, labs)? Why? @ -None What meds were considered but not given or refused? Why? @ -None Did you discuss the management of the patient with other professionals (professionals i.e. , PA, PRACTICE SPECIALIST, lab, RT, psych nurse, social security assessor, military lawyer, teacher, student officer, case consultant)? Give summary @ -No Was smoking cessation discussed for >3mins.? @ -No Was critical care preformed (if so, how long)? @ -Yes, 33 minutes Were there social determinants of health that impacted care today? How? (Homelessness, low income, unemployed, alcoholism, drug addiction, transportation, low edu. Level, literacy, decrease access to med. care, retirement, rehab)? @ -No Was there de-escalation of care discussed even if they declined (Discuss DNR or withdrawal of care, Hospice)? DNR status @ -No What co-morbidities impacted this encounter? (DM, HTN, Smoking, COPD, CAD, Cancer, CVA, ARF, Chemo, Hep., AIDS, mental health diagnosis, sleep apnea, morbid obesity)? @ -None Was patient admitted / discharged? Hospital course, mention meds given and route, prescriptions, significant lab abnormalities, going to OR and other pertinent info. @ -28-year-old male presents to the emergency department again for hyperglycemia. He is well-known to our emergency department for multiple admissions for DKA. He has long history of noncompliance with his DKA regimen. Vital signs upon arrival shows tachycardia 127, rest of vital signs within acceptable limits. Patient care signed out to Dr. Romero at 7:00 AM (Flaco Villela) EKG is interpreted by myself. EKG shows sinus tachycardia at 129 bpm NE interval 164 QRS is 95 QT interval is 324 QTc is 400. Patient's EKG shows no ST segment ovation or depression. Was patient admitted / discharged? Hospital course, mention meds given and route, prescriptions, significant lab abnormalities, going to OR and other pertinent info. @ -Raul had a fluid bolus given as well as insulin bolus and insulin drip. I spoke with Dr. Schwartz and he agreed to admit the patient admit the patient wrote admitting orders patient was in DKA. Patient's lactic acid is elevated however it is secondary to his the diabetic ketoacidosis Undiagnosed new problem with uncertain prognosis? @ -[No] Drug Therapy requiring intensive monitoring for toxicity (Heparin, Nitro, Insulin, Cardizem)? @ -[No] Were any procedures done? @ -[No] Diagnosis/symptom? @ -Diabetic ketoacidosis Acute, or Chronic, or Acute on Chronic? @ -Acute Uncomplicated (without systemic symptoms) or Complicated (systemic symptoms)? @ -Complicated Side effects of treatment? @ -[No] Exacerbation, Progression, or Severe Exacerbation? @ -[No] Poses a threat to life or bodily function? How? (Chest pain, USA, MO, pneumonia, PE, COPD, DKA, ARF, appy, cholecystitis, CVA, Diverticulitis, Homicidal, Suicidal, threat to staff... and all critical care pts) @ -Yes this could lead to severe dehydration and acidosis and (Julian Romero) - Lab Data Lab Results 09/07/23 09/07/23 09/07/23 Range/Units 08:04 08:04 08:04 WBC 21.6 H (3.8-10.6) k/uL RBC 4.52 (4.30-5.90) m/uL Hgb 12.4 L (13.0-17.5) gm/dL Hct 42.2 (39.0-53.0) % MCV 93.4 (80.0-100.0) fL MCH 27.4 (25.0-35.0) pg MCHC 29.3 L (31.0-37.0) g/dL RDW 15.4 (11.5-15.5) % Plt Count 719 H (150-450) k/uL MPV 7.5 Neutrophils % 90 % Lymphocytes % 7 % Monocytes % 3 % Eosinophils % 0 % Basophils % 0 % Neutrophils # 19.4 H (1.3-7.7) k/uL Lymphocytes # 1.6 (1.0-4.8) k/uL Monocytes # 0.6 (0-1.0) k/uL Eosinophils # 0.0 (0-0.7) k/uL Basophils # 0.0 (0-0.2) k/uL Hypochromasia Marked VBG pH 7.24 L (7.31-7.41) VBG pCO2 18 L* (37-51) mmHg VBG HCO3 8 L* (24-28) mmol/L POC Glucose (mg/dL) (70-110) mg/dL POC Glu [employer] Coordination And [employer] Head ID Plasma Lactic Acid Len 5.2 H* (0.7-2.0) mmol/L 09/07/23 Range/Units 08:15 WBC (3.8-10.6) k/uL RBC (4.30-5.90) m/uL Hgb (13.0-17.5) gm/dL Hct (39.0-53.0) % MCV (80.0-100.0) fL MCH (25.0-35.0) pg MCHC (31.0-37.0) g/dL RDW (11.5-15.5) % Plt Count (150-450) k/uL MPV Neutrophils % % Lymphocytes % % Monocytes % % Eosinophils % % Basophils % % Neutrophils # (1.3-7.7) k/uL Lymphocytes # (1.0-4.8) k/uL Monocytes # (0-1.0) k/uL Eosinophils # (0-0.7) k/uL Basophils # (0-0.2) k/uL Hypochromasia VBG pH (7.31-7.41) VBG pCO2 (37-51) mmHg VBG HCO3 (24-28) mmol/L POC Glucose (mg/dL) >600 H (70-110) mg/dL POC Glu [employer]ination And Production Head ID Selena Fofana Plasma Lactic Acid Len (0.7-2.0) mmol/L Disposition <Flaco Villela - Last Filed: 09/07/23 07:03> Time of Disposition: 09:01 <Julian Romero - Last Filed: 09/07/23 09:15> Clinical Impression: DKA (diabetic ketoacidoses) Disposition: ADMITTED IP TO THIS HOSP Referrals: Brown Valenzuela MD [Primary Care Provider] - 1-2 days
[2023-09-07] MEDS: SODIUM CHLORIDE 0.9% 2,000 ML IV STA (08:11)
[2023-09-07 08:16] LABS: Glucose,Whole Blood >600 mg/dL (70-110)
[2023-09-07 08:17] LABS: VBG PH 7.24 (7.31-7.41)
[2023-09-07 08:18] LABS: Basophils % (A) 0 %; Eosinophils % (A) 0 %; HCT 42.2 % (39.0-53.0); HGB 12.4 gm/dL (13.0-17.5); Hypochromasia Marked; Lymphocytes # (A) 1.6 k/uL (1.0-4.8); Lymphocytes % (A) 7 %; MCH 27.4 pg (25.0-35.0); MCHC 29.3 g/dL (31.0-37.0); MCV 93.4 fL (80.0-100.0); Mean Platelet Volume 7.5; Monocytes # (A) 0.6 k/uL (0-1.0); Monocytes % (A) 3 %; Neutrophils # (A) 19.4 k/uL (1.3-7.7); Neutrophils % (A) 90 %; Platelet Count 719 k/uL (150-450); RBC 4.52 m/uL (4.30-5.90); RDW 15.4 % (11.5-15.5); WBC 21.6 k/uL (3.8-10.6)
[2023-09-07 10:08] LABS: ALT 39 U/L (4-49); AST 21 U/L (17-59); African American GFR (CKD) >90 (>60 ml/min/1.73 sqM); Albumin 5.1 g/dL (3.5-5.0); Alkaline Phosphatase 193 U/L (38-126); Blood Urea Nitrogen 34 mg/dL (9-20); Chloride 97 mmol/L (98-107); Magnesium 2.4 mg/dL (1.6-2.3); Non-African American GFR(CKD) >90 (>60 ml/min/1.73 sqM); Potassium 5.1 mmol/L (3.5-5.1); Sodium 138 mmol/L (137-145); Total Bilirubin 0.7 mg/dL (0.2-1.3); Total Protein 8.1 g/dL (6.3-8.2)
[2023-09-07 10:11] LABS: Carbon Dioxide <5 mmol/L (22-30)
[2023-09-07] MEDS: SODIUM CHLORIDE 0.9% 1,000 ML IV ONE (10:11)
[2023-09-07] MEDS: SODIUM CHLORIDE 0.9% 1,000 ML IV SCH (10:11)
[2023-09-07] MEDS: INSULIN REGULAR 100 UNIT in SODIUM CHLORIDE 0.9% 100 ML IV SCH (10:13)
[2023-09-07] MEDS: INSULIN REGULAR BOLUS (FROM DRIP BAG) IV ONE (10:14)
[2023-09-07 10:21] LABS: Glucose,Whole Blood >600 mg/dL (70-110)
[2023-09-07 11:36] LABS: Glucose,Whole Blood 469 mg/dL (70-110)
[2023-09-07 12:27] LABS: Glucose,Whole Blood 400 mg/dL (70-110)
[2023-09-07 12:54] LABS: African American GFR (CKD) >90 (>60 ml/min/1.73 sqM); Anion Gap 21 mmol/L; Blood Urea Nitrogen 30 mg/dL (9-20); Carbon Dioxide 10 mmol/L (22-30); Chloride 115 mmol/L (98-107); Glucose 416 mg/dL (74-99); Non-African American GFR(CKD) >90 (>60 ml/min/1.73 sqM); Potassium 4.5 mmol/L (3.5-5.1); Sodium 146 mmol/L (137-145)
--- NOTE | 2023-09-07 14:06 | P.CNPUL ---
History of Present Illness Consult date: 09/07/23 Chief complaint: DKA History of present illness: On 09/07/2023, the patient was seen in emergency department for DKA. 1 of multiple hospitalizations for the same. The patient had anion gap metabolic acidosis with a gap of 21, serum bicarb of 10 and a blood sugar above 600. White cell count is 21.6. Hemoglobin 12.4, platelet count 719. Lethargic and sleepy, tachycardic, given a total of 2 L of IV fluids currently on insulin drip at 5 units an hour and the patient was given a bolus of 5 units. The patient is currently on IV fluids with normal saline at rate of 200 cc an hour. No aspiration. No hypoxemia and the pulse ox 98 to 100% on room air oxygen. EKG showing sinus tachycardia. Review of Systems ROS unobtainable: due to mental status Past Medical History Past Medical History: Asthma, Diabetes Mellitus, Neurologic Disorder, Skin Disorder Additional Past Medical History / Comment(s): IDDM type I, neuropathy bilateral feet, DKA, eczema. History of Any Multi-Drug Resistant Organisms: None Reported Past Surgical History: Adenoidectomy Additional Past Surgical History / Comment(s): 2002 Recent EGD- gastritis Past Anesthesia/Blood Transfusion Reactions: No Reported Reaction Past Psychological History: Anxiety, Depression Smoking Status: Current every day smoker Past Alcohol Use History: None Reported Past Drug Use History: Marijuana - Past Family History Mother Family Medical History: CVA/TIA Additional Family Medical History / Comment(s): TIA Father Family Medical History: Hyperlipidemia, Hypertension Additional Family Medical History / Comment(s): . Medications and Allergies Home Medications Medication Instructions Recorded Confirmed Type RX: Ergocalciferol [Vitamin D2 1,250 mcg PO Q30D 04/29/23 09/07/23 History (1250 Mcg = 70517 Iu)] RX: Famotidine [Pepcid] 20 mg PO BID 04/29/23 09/07/23 History RX: Gabapentin 600 mg PO TID 04/29/23 09/07/23 History RX: Losartan Potassium 50 mg PO DAILY 04/29/23 09/07/23 History RX: Mirtazapine 7.5 mg PO HS 04/29/23 09/07/23 History Insulin Glargine,Hum.rec.anlog 30 units SQ HS 09/07/23 09/07/23 History [Insulin Glargine] RX: Insulin Lispro 7 units SQ AC-TID 09/07/23 09/07/23 History Allergies Allergy/AdvReac Type Severity Reaction Status Date / Time No Known Allergies Allergy Verified 07/26/23 17:37 Physical Exam Vitals: Vital Signs Temp Pulse Resp BP Pulse Ox 09/07/23 12:00 122 H 18 122/85 98 09/07/23 11:37 123 H 20 110/70 98 09/07/23 06:59 97.4 F L 127 H 24 133/88 100 Intake and Output 09/06/23 09/07/23 09/07/23 22:59 06:59 14:59 Other: Weight 49.895 kg GENERAL EXAM: Alert, 28-year-old white male, disheveled, tachypneic with rapid breathing HEAD: Normocephalic and atraumatic EYES: Normal reaction of pupils, equal size. NOSE: Clear with pink turbinates. THROAT: No erythema or exudates. NECK: No masses, no JVD. CHEST: No chest wall deformity. LUNGS: Equal air entry with no crackles, wheeze, rhonchi or dullness. No conversational dyspnea or accessory muscle use.. CVS: S1 and S2 normal with grade 1 systolic murmur, regular rhythm. No other extra heart sounds ABDOMEN: No hepatosplenomegaly, active bowel sounds, no guarding or rigidity. SPINE: No scoliosis or deformity SKIN: No rashes CENTRAL NERVOUS SYSTEM: No focal deficits, tone is normal in all 4 extremities. EXTREMITIES: There is no peripheral edema, clubbing, or cyanosis. Peripheral pulses are intact. Results - Laboratory Findings CBC and BMP: 09/07/23 08:04 09/07/23 12:30 Abnormal lab findings: Abnormal Labs 09/07/23 09/07/23 09/07/23 08:04 08:04 08:04 WBC 21.6 H Hgb 12.4 L MCHC 29.3 L Plt Count 719 H Neutrophils # 19.4 H VBG pH VBG pCO2 VBG HCO3 Sodium Chloride 97 L Carbon Dioxide <5 L* BUN 34 H Glucose >625 H* POC Glucose (mg/dL) Plasma Lactic Acid Len 5.2 H* Magnesium 2.4 H Alkaline Phosphatase 193 H Albumin 5.1 H 09/07/23 09/07/23 09/07/23 08:04 08:15 10:17 WBC Hgb MCHC Plt Count Neutrophils # VBG pH 7.24 L VBG pCO2 18 L* VBG HCO3 8 L* Sodium Chloride Carbon Dioxide BUN Glucose POC Glucose (mg/dL) >600 H >600 H Plasma Lactic Acid Len Magnesium Alkaline Phosphatase Albumin 09/07/23 09/07/23 09/07/23 11:36 12:25 12:30 WBC Hgb MCHC Plt Count Neutrophils # VBG pH VBG pCO2 VBG HCO3 Sodium 146 H Chloride 115 H Carbon Dioxide 10 L BUN 30 H Glucose 416 H POC Glucose (mg/dL) 469 H 400 H Plasma Lactic Acid Len Magnesium Alkaline Phosphatase Albumin Assessment and Plan Plan: Acute diabetic ketoacidosis, likely secondary to medication noncompliance. Patient has had numerous episodes of DKA, recently discharged on 09/21/2023 for the same Severe anion gap metabolic acidosis, secondary to above Severe dehydration Type 1 diabetes mellitus, with poor medication compliance. Acute leukocytosis, likely reactive to DKA Diabetic neuropathy History of major depression Chronic marijuana use Chronic ongoing nicotine dependence Plan: Admit to the ICU and treat based on the DKA protocol currently on insulin drip at 5 units an hour and received a total of 2 days of IV fluids. The patient is currently on normal saline at rate of 200 cc an hour Monitor electrolytes Leukocytosis likely reactive Heparin subcu for DVT prophylaxis IV Protonix We will continue to follow
[2023-09-07 14:07] LABS: Glucose,Whole Blood 289 mg/dL (70-110)
[2023-09-07 15:12] LABS: Glucose 870 mg/dL (74-99)
[2023-09-07] MEDS: D5-0.45% NACL WITH KCL 20MEQ/L 1,000 ML IV SCH (15:27)
[2023-09-07 15:28] LABS: Glucose,Whole Blood 262 mg/dL (70-110)
[2023-09-07 16:28] LABS: African American GFR (CKD) >90 (>60 ml/min/1.73 sqM); Anion Gap 18 mmol/L; Blood Urea Nitrogen 27 mg/dL (9-20); Carbon Dioxide 12 mmol/L (22-30); Chloride 116 mmol/L (98-107); Glucose 276 mg/dL (74-99); Non-African American GFR(CKD) >90 (>60 ml/min/1.73 sqM); Potassium 4.4 mmol/L (3.5-5.1); Sodium 146 mmol/L (137-145)
[2023-09-07 16:38] LABS: Glucose,Whole Blood 256 mg/dL (70-110)
[2023-09-07 17:58] LABS: Glucose,Whole Blood 268 mg/dL (70-110)
[2023-09-07] MEDS: ONDANSETRON 4 MG/2 ML VIAL IVP PRN (18:16)
[2023-09-07 18:32] LABS: Glucose,Whole Blood 243 mg/dL (70-110)
[2023-09-07 19:03] LABS: African American GFR (CKD) >90 (>60 ml/min/1.73 sqM); Anion Gap 14 mmol/L; Blood Urea Nitrogen 27 mg/dL (9-20); Calcium 9.2 mg/dL (8.4-10.2); Carbon Dioxide 16 mmol/L (22-30); Chloride 116 mmol/L (98-107); Glucose 255 mg/dL (74-99); Magnesium 2.2 mg/dL (1.6-2.3); Non-African American GFR(CKD) >90 (>60 ml/min/1.73 sqM); Potassium 4.2 mmol/L (3.5-5.1); Sodium 146 mmol/L (137-145)
[2023-09-07 19:06] LABS: Basophils # (A) 0.1 k/uL (0-0.2); Basophils % (A) 0 %; Eosinophils % (A) 0 %; HCT 34.4 % (39.0-53.0); HGB 10.6 gm/dL (13.0-17.5); Hypochromasia Moderate; Lymphocytes # (A) 2.6 k/uL (1.0-4.8); Lymphocytes % (A) 12 %; MCHC 30.9 g/dL (31.0-37.0); Mean Platelet Volume 6.8; Monocytes % (A) 5 %; Neutrophils % (A) 83 %; Platelet Count 630 k/uL (150-450); RBC 3.94 m/uL (4.30-5.90); RDW 15.7 % (11.5-15.5); WBC 21.8 k/uL (3.8-10.6)
[2023-09-07 19:07] LABS: MCV 87.3 fL (80.0-100.0)
[2023-09-07 19:59] LABS: Glucose,Whole Blood 198 mg/dL (70-110)
--- NOTE | 2023-09-07 20:21 | HP ---
HISTORY AND PHYSICAL CHIEF COMPLAINT: Lethargy and DKA. HISTORY OF PRESENT ILLNESS: This is another admission for this -mdmj-lxo, type 1 insulin-dependent, noncompliant diabetic. He has actually been out of the hospital about a month at this time, which is basically a new record. He is generally in and out every 4 or 5 days a week. He presented to the emergency room in [facility]. The review of systems is not reliable, in that he is quite lethargic. Past medical history, family history, and personal and social histories are all unchanged from his usual admitting and discharge summaries. LABORATORY DATA: Laboratory studies revealed white count of 21,600 and white count is 600. Bicarb is 8 and CO2 is 18. Lactic acid is 5.2. PHYSICAL EXAMINATION: HEAD, EARS, EYES, NOSE, MOUTH AND THROAT: Normal except for dehydration. NECK: Supple. CHEST: Clear. CARDIAC: Reveals sinus tachycardia. ABDOMEN: Soft and flat. EXTREMITIES: Normal. NEUROLOGICAL: He is intact except for lethargy. ASSESSMENT: He is admitted to the hospital with, 1. Diabetic ketoacidosis. 2. Dehydration. 3. Type 1 insulin-dependent, noncompliant diabetic. 4. Depression. PLAN: ICU management for DKA. MMODL / IJN: [id number] /
[2023-09-07 21:06] LABS: Glucose,Whole Blood 174 mg/dL (70-110)
[2023-09-07] MEDS: HEPARIN SODIUM,PORCINE 5,000 UNIT/ML 1 ML VIAL SQ SCH (22:21)
[2023-09-07 22:27] LABS: Glucose,Whole Blood 139 mg/dL (70-110)
[2023-09-07 23:02] LABS: Glucose,Whole Blood 125 mg/dL (70-110)
[2023-09-08 00:11] LABS: Glucose,Whole Blood 128 mg/dL (70-110)
[2023-09-08 01:32] LABS: Glucose,Whole Blood 214 mg/dL (70-110)
[2023-09-08 01:49] LABS: African American GFR (CKD) >90 (>60 ml/min/1.73 sqM); Anion Gap 9 mmol/L; Blood Urea Nitrogen 25 mg/dL (9-20); Carbon Dioxide 20 mmol/L (22-30); Chloride 110 mmol/L (98-107); Glucose 135 mg/dL (74-99); Non-African American GFR(CKD) >90 (>60 ml/min/1.73 sqM); Phosphorus 2.8 mg/dL (2.5-4.5); Potassium 4.2 mmol/L (3.5-5.1); Sodium 139 mmol/L (137-145)
[2023-09-08 02:04] LABS: Glucose,Whole Blood 163 mg/dL (70-110)
[2023-09-08 03:11] LABS: Glucose,Whole Blood 236 mg/dL (70-110)
[2023-09-08 04:08] LABS: Glucose,Whole Blood 245 mg/dL (70-110)
[2023-09-08] MEDS: METOCLOPRAMIDE 5 MG/ML 2 ML VIAL IVP PRN (04:08)
[2023-09-08] MEDS: INSULIN DETEMIR (LEVEMIR) 100 UNIT/ML SYR SQ SCH (04:24)
[2023-09-08 05:01] LABS: Glucose,Whole Blood 250 mg/dL (70-110)
[2023-09-08 06:24] LABS: HCT 32.8 % (39.0-53.0); RBC 3.75 m/uL (4.30-5.90); WBC 18.4 k/uL (3.8-10.6)
[2023-09-08 06:25] LABS: Basophils % (A) 0 %; Eosinophils % (A) 0 %; Hypochromasia Moderate; Lymphocytes # (A) 1.9 k/uL (1.0-4.8); Lymphocytes % (A) 10 %; MCH 26.6 pg (25.0-35.0); MCHC 30.3 g/dL (31.0-37.0); MCV 87.7 fL (80.0-100.0); Mean Platelet Volume 6.8; Monocytes # (A) 0.9 k/uL (0-1.0); Monocytes % (A) 5 %; Neutrophils # (A) 15.3 k/uL (1.3-7.7); Neutrophils % (A) 83 %; Platelet Count 583 k/uL (150-450); RDW 15.7 % (11.5-15.5)
[2023-09-08 06:42] LABS: African American GFR (CKD) >90 (>60 ml/min/1.73 sqM); Anion Gap 8 mmol/L; Blood Urea Nitrogen 21 mg/dL (9-20); Calcium 8.5 mg/dL (8.4-10.2); Carbon Dioxide 21 mmol/L (22-30); Chloride 106 mmol/L (98-107); Glucose 233 mg/dL (74-99); Non-African American GFR(CKD) >90 (>60 ml/min/1.73 sqM); Potassium 4.4 mmol/L (3.5-5.1); Sodium 135 mmol/L (137-145)
[2023-09-08 06:53] LABS: Glucose,Whole Blood 207 mg/dL (70-110)
[2023-09-08] MEDS: INSULIN ASPART (NovoLOG) 100 UNIT/ML VIAL SQ SCH ×2 (07:02→17:56)
[2023-09-08] MEDS: PANTOPRAZOLE 40 MG/10 ML VIAL IV SCH (09:54)
[2023-09-08 11:37] LABS: Glucose,Whole Blood 67 mg/dL (70-110)
--- NOTE | 2023-09-08 11:47 | P.PN ---
Subjective Progress Note Date: 09/08/23 Principal diagnosis: Acute diabetic ketoacidosis On 09/07/2023, the patient was seen in emergency department for DKA. 1 of multiple hospitalizations for the same. The patient had anion gap metabolic acidosis with a gap of 21, serum bicarb of 10 and a blood sugar above 600. Wh ite cell count is 21.6. Hemoglobin 12.4, platelet count 719. Lethargic and sleepy, tachycardic, given a total of 2 L of IV fluids currently on insulin drip at 5 units an hour and the patient was given a bolus of 5 units. The patient is currently on IV fluids with normal saline at rate of 200 cc an hour. No aspiration. No hypoxemia and the pulse ox 98 to 100% on room air oxygen. EKG showing sinus tachycardia. Reevaluate today on 09/08/2023, patient is doing much better today, his anion gap has closed, he is back on subcu insulin Levemir insulin, patient is relatively asymptomatic. The plan is to transfer the patient out of the ICU to a regular medical floor. And we will continue to follow WBC count is 18.4 hemoglobin is 10 anion gap is 8 and renal profile is normal Objective - Vital Signs Vital signs: Vital Signs Temp 97.7 F 09/08/23 08:00 Pulse 98 09/08/23 08:00 Resp 21 09/08/23 08:00 BP 134/94 09/08/23 08:00 Pulse Ox 97 09/08/23 08:00 FiO2 Intake & Output 09/07/23 09/08/23 09/08/23 18:59 06:59 18:59 Intake Total 813.221 8409.685 Output Total 700 0 Balance 335.181 8405.685 0 Weight 49.895 kg 67.1 kg Intake: IV 300 1500 D5-0.45% NaCl with KCl 300 1500 20Meq/l 1,000 ml @ 150 mls/hr IV .Q6H40M YAEL Rx# :[id number] Intake, IV Titration 34.053 28.685 Amount Insulin Regular 100 unit 34.053 28.685 In Sodium Chloride 0.9% 100 ml @ 0.1 UNITS/KG/HR 5.039 mls/hr IV .Q20H3M YAEL Rx#:[id number] Oral 600 Output: Urine 700 0 Other: Voiding Method Urinal Urinal - Exam GENERAL EXAM: 28-year-old in no distress HEAD: Normocephalic and atraumatic EYES: Normal reaction of pupils, equal size. NOSE: Clear with pink turbinates. THROAT: No erythema or exudates. NECK: No masses, no JVD. CHEST: No chest wall deformity. LUNGS:. Clear bilaterally no crackles rhonchi or wheezes CVS: Normal S1-S2, no S3 gallop. ABDOMEN: No hepatosplenomegaly, active bowel sounds, no guarding or rigidity. SPINE: No scoliosis or deformity SKIN: No rashes CENTRAL NERVOUS SYSTEM: Alert oriented x 3 no gross focal deficit EXTREMITIES: Clubbing edema or cyanosis - Labs CBC & Chem 7: 09/08/23 05:35 09/08/23 05:35 Labs: Abnormal Lab Results - Last 24 Hours (Table) 09/07/23 09/07/23 09/07/23 Range/Units 08:04 12:25 12:30 WBC (3.8-10.6) k/uL RBC (4.30-5.90) m/uL Hgb (13.0-17.5) gm/dL Hct (39.0-53.0) % MCHC (31.0-37.0) g/dL RDW (11.5-15.5) % Plt Count (150-450) k/uL Neutrophils # (1.3-7.7) k/uL Sodium 146 H (137-145) mmol/L Chloride 115 H (98-107) mmol/L Carbon Dioxide 10 L (22-30) mmol/L BUN 30 H (9-20) mg/dL Creatinine (0.66-1.25) mg/dL Glucose 870 H* 416 H (74-99) mg/dL POC Glucose (mg/dL) 400 H (70-110) mg/dL 09/07/23 09/07/23 09/07/23 Range/Units 14:06 15:21 15:49 WBC (3.8-10.6) k/uL RBC (4.30-5.90) m/uL Hgb (13.0-17.5) gm/dL Hct (39.0-53.0) % MCHC (31.0-37.0) g/dL RDW (11.5-15.5) % Plt Count (150-450) k/uL Neutrophils # (1.3-7.7) k/uL Sodium 146 H (137-145) mmol/L Chloride 116 H (98-107) mmol/L Carbon Dioxide 12 L (22-30) mmol/L BUN 27 H (9-20) mg/dL Creatinine (0.66-1.25) mg/dL Glucose 276 H (74-99) mg/dL POC Glucose (mg/dL) 289 H 262 H (70-110) mg/dL 09/07/23 09/07/23 09/07/23 Range/Units 16:36 17:57 18:28 WBC 21.8 H (3.8-10.6) k/uL RBC 3.94 L (4.30-5.90) m/uL Hgb 10.6 L (13.0-17.5) gm/dL Hct 34.4 L (39.0-53.0) % MCHC 30.9 L (31.0-37.0) g/dL RDW 15.7 H (11.5-15.5) % Plt Count 630 H (150-450) k/uL Neutrophils # 18.0 H (1.3-7.7) k/uL Sodium (137-145) mmol/L Chloride (98-107) mmol/L Carbon Dioxide (22-30) mmol/L BUN (9-20) mg/dL Creatinine (0.66-1.25) mg/dL Glucose (74-99) mg/dL POC Glucose (mg/dL) 256 H 268 H (70-110) mg/dL 09/07/23 09/07/23 09/07/23 Range/Units 18:28 18:30 19:58 WBC (3.8-10.6) k/uL RBC (4.30-5.90) m/uL Hgb (13.0-17.5) gm/dL Hct (39.0-53.0) % MCHC (31.0-37.0) g/dL RDW (11.5-15.5) % Plt Count (150-450) k/uL Neutrophils # (1.3-7.7) k/uL Sodium 146 H (137-145) mmol/L Chloride 116 H (98-107) mmol/L Carbon Dioxide 16 L (22-30) mmol/L BUN 27 H (9-20) mg/dL Creatinine 0.65 L (0.66-1.25) mg/dL Glucose 255 H (74-99) mg/dL POC Glucose (mg/dL) 243 H 198 H (70-110) mg/dL 09/07/23 09/07/23 09/07/23 Range/Units 21:04 22:24 23:00 WBC (3.8-10.6) k/uL RBC (4.30-5.90) m/uL Hgb (13.0-17.5) gm/dL Hct (39.0-53.0) % MCHC (31.0-37.0) g/dL RDW (11.5-15.5) % Plt Count (150-450) k/uL Neutrophils # (1.3-7.7) k/uL Sodium (137-145) mmol/L Chloride (98-107) mmol/L Carbon Dioxide (22-30) mmol/L BUN (9-20) mg/dL Creatinine (0.66-1.25) mg/dL Glucose (74-99) mg/dL POC Glucose (mg/dL) 174 H 139 H 125 H (70-110) mg/dL 09/08/23 09/08/23 09/08/23 Range/Units 00:10 00:42 01:30 WBC (3.8-10.6) k/uL RBC (4.30-5.90) m/uL Hgb (13.0-17.5) gm/dL Hct (39.0-53.0) % MCHC (31.0-37.0) g/dL RDW (11.5-15.5) % Plt Count (150-450) k/uL Neutrophils # (1.3-7.7) k/uL Sodium (137-145) mmol/L Chloride 110 H (98-107) mmol/L Carbon Dioxide 20 L (22-30) mmol/L BUN 25 H (9-20) mg/dL Creatinine 0.50 L (0.66-1.25) mg/dL Glucose 135 H (74-99) mg/dL POC Glucose (mg/dL) 128 H 214 H (70-110) mg/dL 09/08/23 09/08/23 09/08/23 Range/Units 02:01 03:09 04:06 WBC (3.8-10.6) k/uL RBC (4.30-5.90) m/uL Hgb (13.0-17.5) gm/dL Hct (39.0-53.0) % MCHC (31.0-37.0) g/dL RDW (11.5-15.5) % Plt Count (150-450) k/uL Neutrophils # (1.3-7.7) k/uL Sodium (137-145) mmol/L Chloride (98-107) mmol/L Carbon Dioxide (22-30) mmol/L BUN (9-20) mg/dL Creatinine (0.66-1.25) mg/dL Glucose (74-99) mg/dL POC Glucose (mg/dL) 163 H 236 H 245 H (70-110) mg/dL 09/08/23 09/08/23 09/08/23 Range/Units 05:00 05:35 05:35 WBC 18.4 H (3.8-10.6) k/uL RBC 3.75 L (4.30-5.90) m/uL Hgb 10.0 L (13.0-17.5) gm/dL Hct 32.8 L (39.0-53.0) % MCHC 30.3 L (31.0-37.0) g/dL RDW 15.7 H (11.5-15.5) % Plt Count 583 H (150-450) k/uL Neutrophils # 15.3 H (1.3-7.7) k/uL Sodium 135 L (137-145) mmol/L Chloride (98-107) mmol/L Carbon Dioxide 21 L (22-30) mmol/L BUN 21 H (9-20) mg/dL Creatinine 0.59 L (0.66-1.25) mg/dL Glucose 233 H (74-99) mg/dL POC Glucose (mg/dL) 250 H (70-110) mg/dL 09/08/23 09/08/23 Range/Units 06:51 11:35 WBC (3.8-10.6) k/uL RBC (4.30-5.90) m/uL Hgb (13.0-17.5) gm/dL Hct (39.0-53.0) % MCHC (31.0-37.0) g/dL RDW (11.5-15.5) % Plt Count (150-450) k/uL Neutrophils # (1.3-7.7) k/uL Sodium (137-145) mmol/L Chloride (98-107) mmol/L Carbon Dioxide (22-30) mmol/L BUN (9-20) mg/dL Creatinine (0.66-1.25) mg/dL Glucose (74-99) mg/dL POC Glucose (mg/dL) 207 H 67 L (70-110) mg/dL Assessment and Plan Assessment: Impression: Acute diabetic ketoacidosis (secondary to noncompliance Acute anion gap metabolic acidosis, resolved Severe dehydration Acute leukocytosis secondary to DKA Type 1 diabetes with recurrent and multiple episodes of DKA Diabetic neuropathy Chronic marijuana use Tobacco dependence syndrome Recommendation: Continue present treatment plan Continue IV fluids ADA diet Subcu insulin and Levemir insulin Continue IV Protonix Transfer patient out of ICU to regular medical floor. Will continue to follow Time with Patient: Less than 30
[2023-09-08 12:39] LABS: Glucose,Whole Blood 129 mg/dL (70-110)
[2023-09-08 17:31] LABS: Glucose,Whole Blood 138 mg/dL (70-110)
[2023-09-08 20:39] LABS: Glucose,Whole Blood 182 mg/dL (70-110)
[2023-09-09 02:02] VITALS: RESP 16
[2023-09-09 05:50] LABS: Glucose,Whole Blood 83 mg/dL (70-110)
[2023-09-09 07:59] VITALS: BP 128/87; PULSE 89; TEMP 98
--- NOTE | 2023-09-09 08:57 | PN ---
PROGRESS NOTE DATE OF SERVICE: 09/08/2023 CHIEF COMPLAINT: DKA, mental status changes, and depression. HISTORY OF PRESENT ILLNESS: This gentleman is still very lethargic. Nausea and vomiting seem to be gone. Gap is closed. PHYSICAL EXAMINATION: VITAL SIGNS: Normal. CHEST: Clear. CARDIAC: Normal. ABDOMEN: Soft. He is lethargic. IMPRESSION: 1. DKA. 2. Depression. PLAN: MMODL / IJN: [id number] /
[2023-09-09 11:58] LABS: Glucose,Whole Blood 157 mg/dL (70-110)
--- NOTE | 2023-09-09 12:05 | P.PN ---
Subjective Progress Note Date: 09/09/23 The patient is seen today September 09, 2023 in follow-up on the regular medical floor. He had been admitted on 09/07/2023 for DKA. He was transferred out of the intensive care unit yesterday. He is sitting up in bed. Awake and alert in no acute distress. He is maintaining good O2 saturations in the high 90s on room air. He is afebrile. Hemodynamically stable. Current glucose 157. His bicarb is 21 and anion gap down to 8. Has been transition to Levemir 30 units at bedtime and on multiple log sliding scale. Heparin for DVT prophylaxis. Protonix for GI prophylaxis. Reglan and Zofran as needed. He denies any nausea. He is tolerating a diet. Objective - Vital Signs Vital signs: Vital Signs Temp 98 F 09/09/23 07:35 Pulse 89 09/09/23 07:35 Resp 16 09/09/23 07:35 BP 128/87 09/09/23 07:35 Pulse Ox 99 09/09/23 07:35 FiO2 Intake & Output 09/08/23 09/09/23 09/09/23 18:59 06:59 18:59 Intake Total 375 236 Output Total 700 Balance -325 236 Intake: Oral 236 Blood Product 375 Output: Urine 700 Other: Voiding Method Urinal # Voids 1 2 - Exam GENERAL EXAM: Alert, pleasant, thin 28-year-old male patient, on room air, comfortable in no apparent distress. HEAD: Normocephalic. EYES: Normal reaction of pupils, equal size. NOSE: Clear with pink turbinates. THROAT: No erythema or exudates. NECK: No masses, no JVD. CHEST: No chest wall deformity. LUNGS: Equal air entry with no crackles, wheeze, rhonchi or dullness. CVS: S1 and S2 normal with no audible murmur, regular rhythm. ABDOMEN: No hepatosplenomegaly, normal bowel sounds, no guarding or rigidity. SPINE: No scoliosis or deformity SKIN: No rashes CENTRAL NERVOUS SYSTEM: No focal deficits, tone is normal in all 4 extremities. EXTREMITIES: There is no peripheral edema. No clubbing, no cyanosis. Peripheral pulses are intact. - Labs CBC & Chem 7: 09/08/23 05:35 09/08/23 05:35 Labs: Abnormal Lab Results - Last 24 Hours (Table) 09/08/23 09/08/23 09/08/23 Range/Units 12:38 17:30 20:38 POC Glucose (mg/dL) 129 H 138 H 182 H (70-110) mg/dL 09/09/23 Range/Units 11:56 POC Glucose (mg/dL) 157 H (70-110) mg/dL Assessment and Plan Assessment: Acute diabetic ketoacidosis, likely secondary to medication noncompliance. Patient has had numerous episodes of DKA, recently discharged on 07/29/2023 for the same Severe anion gap metabolic acidosis, secondary to above Severe dehydration Type 1 diabetes mellitus, with poor medication compliance. Acute leukocytosis, likely reactive to DKA Diabetic neuropathy History of major depression Chronic marijuana use Chronic ongoing nicotine dependence Plan: The patient was seen and evaluated Labs and medications reviewed Stable and on room air Recovered from DKA Resumed on Levemir and sliding scale Cleared for discharge This patient was seen independently by the pulmonary nurse practitioner addressing pulmonary issues I have personally seen and examined the patient, performed the documentation and the assessment and plan as written. Number of minutes spent on the visit: 23.
[2023-09-09 12:43] LABS: Basophils # (A) 0.04 X 10*3/uL (0.00-0.10); Basophils % (A) 0.4 %; Eosinophils # (A) 0.04 X 10*3/uL (0.04-0.35); Eosinophils % (A) 0.4 %; HGB 10.7 g/dL (13.0-17.0); Lymphocytes # (A) 1.79 X 10*3/uL (0.90-5.00); Lymphocytes % (A) 18.8 %; MCH 26.8 pg (27.0-32.0); MCHC 31.5 g/dL (32.0-37.0); Mean Platelet Volume 8.9 FL (9.5-12.2); Monocytes # (A) 0.94 X 10*3/uL (0.20-1.00); Monocytes % (A) 9.9 %; NRBC Per 100 WBC 0 X 10*3/uL (0.00-0.01); Neutrophils # (A) 6.71 X 10*3/uL (1.80-7.70); Neutrophils % (A) 70.3 %; Platelet Count 487 X 10*3/uL (140-440); RDW 14.8 % (11.5-14.5); WBC 9.54 X 10*3/uL (4.50-10.00)
[2023-09-09 13:07] LABS: BUN/Creat Ratio 15.33 Ratio (12.00-20.00); Blood Urea Nitrogen 9.2 mg/dL (9.0-27.0); Carbon Dioxide 26.6 mmol/L (21.6-31.8); Chloride 99 mmol/L (96-109); Glucose 72 mg/dL (70-110); Potassium 3.8 mmol/L (3.5-5.5); Sodium 137 mmol/L (135-145)
--- NOTE | 2023-09-10 13:41 | DS ---
DISCHARGE SUMMARY CHIEF COMPLAINT: DKA. HISTORY OF PRESENT ILLNESS AND PHYSICAL EXAMINATION: Details of this man's history and physical can be found in the initial workup. LABORATORY STUDIES: While he is in the hospital, he had laboratory studies, details of which can be found in the laboratory section of his chart. COURSE IN HOSPITAL: After admission, he was placed on bedrest and treated in the ICU for his DKA. Initially, he was very lethargic, but he fully regained consciousness and cognitive ability. He had nausea and vomiting, but this also stopped. He is doing well. It was felt that he could be discharged on the and go home on his usual diet, activity, medications, and will follow up in the office in several days. FINAL DIAGNOSES: 1. DKA. 2. Gastroparesis. 3. Depression. 4. Peripheral neuropathy. 5. Noncompliant patient. OPERATIONS AND CONSULTATIONS: Intensive medicine, he is improved. GRACE / ALDEN: [id number] /
== END 2023-09-09 12:49 | disposition home or self-care (01) | DRG 420 ==
LOC: EC 06:49 → 2SICU 09:03 → 6NMEDSUR 09-08 14:37
PROVIDERS: ADMIT Family Medicine; ATTEND Family Medicine
DX: E10.10 Type 1 diabetes mellitus with ketoacidosis without coma (principal); E10.40 Type 1 diabetes mellitus with diabetic neuropathy, unspecified; T38.3X6A Underdosing of insulin and oral hypoglycemic [antidiabetic] drugs, initial encounter; J45.909 Unspecified asthma, uncomplicated; E86.0 Dehydration; F17.200 Nicotine dependence, unspecified, uncomplicated; F32.A Depression, unspecified; F41.9 Anxiety disorder, unspecified; L30.9 Dermatitis, unspecified; D72.828 Other elevated white blood cell count; Z91.128 Patient's intentional underdosing of medication regimen for other reason; Z79.4 Long term (current) use of insulin; Z28.310 Unvaccinated for COVID-19; Z79.899 Other long term (current) drug therapy; Z91.199 Patient's noncompliance with other medical treatment and regimen due to unspecified reason; Z28.21 Immunization not carried out because of patient refusal
CPT/HCPCS: 36415; 80048; 80051; 80053; 82009; 82565; 82803; 82947; 83605; 83735; 84100; 84520; 85025; 93005; 96361; 96365; 96366; 99291

== ENCOUNTER 2023-09-10 17:56 | Inpatient (IN) | payer OTHER ==
[2023-09-10 18:02] LABS: Glucose,Whole Blood 579 mg/dL (70-110)
[2023-09-10] MEDS ORDERED: Magnesium Replacement Protocol 1 EACH MISC MISCELLANE PRN (18:10)
[2023-09-10] MEDS ORDERED: Potassium Replacement Protocol 1 EACH MISC MISCELLANE PRN (18:10)
[2023-09-10] MEDS ORDERED: DEXTROSE 50% SYRINGE 50 ML IVP PRN ×2 (18:10)
--- NOTE | 2023-09-10 18:47 | ED ---
General Adult HPI - General Chief complaint: Nausea/Vomiting/Diarrhea Stated complaint: High Blood Sugar Time Seen by Provider: 09/10/23 17:58 Source: EMS Mode of arrival: EMS Limitations: altered mental status - History of Present Illness Initial comments: Dictation was produced using [employer] dictation software. please excuse any grammatical, word or spelling errors. Chief Complaint: 28-year-old male presents to the emergency department yet again for hyperglycemia History of Present Illness: Patient 28-year-old male he is well-known to emergency department. Patient is known for diabetes care noncompliance. He comes to the emergency department often gets admitted for DKA leaves AGAINST MEDICAL ADVICE. Patient presents via EMS from home for nausea vomiting. He is found by prehospital providers that his sugar was above low could be measured on their glucometer. Patient unable to vital HP at this time due to lethargy Unable to obtain ROS secondary to mental status - Related Data Home Medications Medication Instructions Recorded Confirmed Ergocalciferol [Vitamin D2 (1250 1,250 mcg PO Q30D 04/29/23 09/10/23 Mcg = 07461 Iu)] Famotidine [Pepcid] 20 mg PO BID 04/29/23 09/10/23 Gabapentin 600 mg PO TID 04/29/23 09/10/23 Losartan Potassium 50 mg PO DAILY 04/29/23 09/10/23 Mirtazapine 7.5 mg PO HS 04/29/23 09/10/23 Insulin Glargine,Hum.rec.anlog 30 units SQ HS 09/07/23 09/10/23 [Insulin Glargine] Insulin Lispro 7 units SQ AC-TID 09/07/23 09/10/23 Allergies Allergy/AdvReac Type Severity Reaction Status Date / Time No Known Allergies Allergy Verified 09/10/23 18:59 Review of Systems ROS Statement: Those systems with pertinent positive or pertinent negative responses have been documented in the HPI. ROS Other: All systems not noted in ROS Statement are negative. Past Medical History Past Medical History: Asthma, Diabetes Mellitus, Neurologic Disorder, Skin Disorder Additional Past Medical History / Comment(s): IDDM type I, neuropathy bilateral feet, DKA, eczema. History of Any Multi-Drug Resistant Organisms: None Reported Past Surgical History: Adenoidectomy Additional Past Surgical History / Comment(s): 2003 Recent EGD- gastritis Past Anesthesia/Blood Transfusion Reactions: No Reported Reaction Past Psychological History: Anxiety, Depression Smoking Status: Vaper - Past Family History Mother Family Medical History: CVA/TIA Additional Family Medical History / Comment(s): TIA Father Family Medical History: Hyperlipidemia, Hypertension Additional Family Medical History / Comment(s): . General Exam - General Exam Comments Initial Comments: PHYSICAL EXAM: General Impression: A lethargic, smells of acetone HEENT: Normocephalic atraumatic, extra-ocular movements intact, pupils equal and reactive to light bilaterally, mucous membranes Cardiovascular: Heart regular rate and rhythm Chest: Rapid deep breathing Abdomen: abdomen soft, non-tender, non-distended, no organomegaly Musculoskeletal: Pulses present and equal in all extremities, no peripheral edema Motor: Moves all extremities grossly Neurological: CN II-XII grossly intact, no focal motor or sensory deficits noted Skin: Intact with no visualized rashes Limitations: altered mental status Course Vital Signs 09/10/23 09/10/23 18:05 18:12 Temperature 97.8 F Pulse Rate 130 H 129 H Respiratory 26 H 18 Rate Blood Pressure 133/90 103/65 O2 Sat by Pulse 100 97 Oximetry EKG Findings - EKG Comments: EKG Findings:: My EKG interpretation: Ventricular rate 131, sinus tachycardia,. 137, cures 90, QTc 391. Medical Decision Making - Medical Decision Making Was pt. sent in by a medical professional or institution (, PA, BIOMETRIC TECHNICIAN, urgent care, hospital, or [place] health care facility...) When possible be specific @ -No Did you speak to anyone other than the patient for history (EMS, parent, family, police, friend...)? What history was obtained from this source @ -No Did you review nursing and triage notes (agree or disagree)? Why? @ -I reviewed and agree with nursing and triage notes Were old charts reviewed (outside hosp., previous admission, EMS record, old EKG, old radiological studies, urgent care reports/EKG's, [place] health care facility records)? Report findings @ -No old charts were reviewed Differential Diagnosis (chest pain, altered mental status, abdominal pain women, abdominal pain men, vaginal bleeding, musculoskeletal, weakness, fever, dyspnea, syncope, headache, dizziness, GI bleed, back pain, seizure, CVA, palpatations, mental health)? @ -Differential Weakness: Hypoglycemia, shock, sepsis, hyponatremia, anemia, infection, MO, ETOH, adverse medicine reaction, overdose, stroke, this is not meant to be an all-inclusive list. EKG interpreted by me (3pts min.). @ -See above X-rays interpreted by me (1pt min.). @ -None done CT interpreted by me (1pt min.). @ -None done U/S interpreted by me (1pt. min.). @ -None done What testing was considered but not performed or refused? (CT, X-rays, U/S, labs)? Why? @ -None What meds were considered but not given or refused? Why? @ -None Did you discuss the management of the patient with other professionals (professionals i.e. , PA, BIOMETRIC TECHNICIAN, lab, RT, psych nurse, executive secretary social welfare, galley worker, teacher, chief human resources officer, embedded case manager)? Give summary @ -Case discussed with hospitalist and medical registrar for ICU admission Was smoking cessation discussed for >3mins.? @ -No Was critical care preformed (if so, how long)? @ -Yes, 33 minutes Were there social determinants of health that impacted care today? How? (Homelessness, low income, unemployed, alcoholism, drug addiction, transportation, low edu. Level, literacy, decrease access to med. care, care home, rehab)? @ -No Was there de-escalation of care discussed even if they declined (Discuss DNR or withdrawal of care, Hospice)? DNR status @ -No What co-morbidities impacted this encounter? (DM, HTN, Smoking, COPD, CAD, Cancer, CVA, ARF, Chemo, Hep., AIDS, mental health diagnosis, sleep apnea, morbid obesity)? @ -None Was patient admitted / discharged? Hospital course, mention meds given and route, prescriptions, significant lab abnormalities, going to OR and other pertinent info. @ -28-year-old male he had again presents emergency department for DKA. Vital signs upon arrival shows tachycardia and tachypnea. Laboratory evaluation obtained. Leukocytosis 20.3. Venous blood gas shows pH of 7.2. Bicarb of 5. Glucose of 600. Acetone positive. Patient started on DKA protocol. Will be admitted to ICU. Undiagnosed new problem with uncertain prognosis? @ -No Drug Therapy requiring intensive monitoring for toxicity (Heparin, Nitro, I nsulin, Cardizem)? @ -No Were any procedures done? @ -No Diagnosis/symptom? Acute, or Chronic, or Acute on Chronic? Uncomplicated (without systemic symptoms) or Complicated (systemic symptoms)? @ -DKA Side effects of treatment? @ -No Exacerbation, Progression, or Severe Exacerbation? @ -No Poses a threat to life or bodily function? How? (Chest pain, USA, MO, pneumonia, PE, COPD, DKA, ARF, appy, cholecystitis, CVA, Diverticulitis, Homicidal, Suicidal, threat to staff... and all critical care pts) @ -yes - Lab Data Result diagrams: 09/10/23 18:35 09/10/23 19:18 Lab Results 09/10/23 09/10/23 09/10/23 Range/Units 18:01 18:35 18:59 WBC 20.3 H (3.8-10.6) k/uL RBC 4.59 (4.30-5.90) m/uL Hgb 12.5 L (13.0-17.5) gm/dL Hct 40.6 (39.0-53.0) % MCV 88.4 (80.0-100.0) fL MCH 27.2 (25.0-35.0) pg MCHC 30.8 L (31.0-37.0) g/dL RDW 15.4 (11.5-15.5) % Plt Count 687 H (150-450) k/uL MPV 8.1 Neutrophils % 90 % Lymphocytes % 5 % Monocytes % 3 % Eosinophils % 0 % Basophils % 0 % Neutrophils # 18.4 H (1.3-7.7) k/uL Lymphocytes # 1.1 (1.0-4.8) k/uL Monocytes # 0.6 (0-1.0) k/uL Eosinophils # 0.1 (0-0.7) k/uL Basophils # 0.0 (0-0.2) k/uL Hypochromasia Marked Poikilocytosis Slight VBG pH (7.31-7.41) VBG pCO2 (37-51) mmHg VBG HCO3 (24-28) mmol/L Sodium (137-145) mmol/L Potassium (3.5-5.1) mmol/L Chloride (98-107) mmol/L Carbon Dioxide (22-30) mmol/L Anion Gap mmol/L BUN (9-20) mg/dL Creatinine (0.66-1.25) mg/dL Est GFR (CKD-EPI)AfAm (>60 ml/min/1.73 sqM) Est GFR (CKD-EPI)NonAf (>60 ml/min/1.73 sqM) Glucose (74-99) mg/dL POC Glucose (mg/dL) 579 H 582 H (70-110) mg/dL POC Glu Electronic Installer ID Mendoza, Lesly Cheek, Jose David Phosphorus (2.5-4.5) mg/dL Acetone, Qual (Negative) 09/10/23 09/10/23 09/10/23 Range/Units 19:18 19:40 19:40 WBC (3.8-10.6) k/uL RBC (4.30-5.90) m/uL Hgb (13.0-17.5) gm/dL Hct (39.0-53.0) % MCV (80.0-100.0) fL MCH (25.0-35.0) pg MCHC (31.0-37.0) g/dL RDW (11.5-15.5) % Plt Count (150-450) k/uL MPV Neutrophils % % Lymphocytes % % Monocytes % % Eosinophils % % Basophils % % Neutrophils # (1.3-7.7) k/uL Lymphocytes # (1.0-4.8) k/uL Monocytes # (0-1.0) k/uL Eosinophils # (0-0.7) k/uL Basophils # (0-0.2) k/uL Hypochromasia Poikilocytosis VBG pH 7.22 L (7.31-7.41) VBG pCO2 28 L (37-51) mmHg VBG HCO3 11 L (24-28) mmol/L Sodium 137 (137-145) mmol/L Potassium 5.0 (3.5-5.1) mmol/L Chloride 102 (98-107) mmol/L Carbon Dioxide 5 L* (22-30) mmol/L Anion Gap 30 mmol/L BUN 21 H (9-20) mg/dL Creatinine 0.78 (0.66-1.25) mg/dL Est GFR (CKD-EPI)AfAm >90 (>60 ml/min/1.73 sqM) Est GFR (CKD-EPI)NonAf >90 (>60 ml/min/1.73 sqM) Glucose 600 H* (74-99) mg/dL POC Glucose (mg/dL) (70-110) mg/dL POC Glu Electronic Installer ID Phosphorus 4.4 (2.5-4.5) mg/dL Acetone, Qual Positive (Negative) 09/10/23 Range/Units 20:16 WBC (3.8-10.6) k/uL RBC (4.30-5.90) m/uL Hgb (13.0-17.5) gm/dL Hct (39.0-53.0) % MCV (80.0-100.0) fL MCH (25.0-35.0) pg MCHC (31.0-37.0) g/dL RDW (11.5-15.5) % Plt Count (150-450) k/uL MPV Neutrophils % % Lymphocytes % % Monocytes % % Eosinophils % % Basophils % % Neutrophils # (1.3-7.7) k/uL Lymphocytes # (1.0-4.8) k/uL Monocytes # (0-1.0) k/uL Eosinophils # (0-0.7) k/uL Basophils # (0-0.2) k/uL Hypochromasia Poikilocytosis VBG pH (7.31-7.41) VBG pCO2 (37-51) mmHg VBG HCO3 (24-28) mmol/L Sodium (137-145) mmol/L Potassium (3.5-5.1) mmol/L Chloride (98-107) mmol/L Carbon Dioxide (22-30) mmol/L Anion Gap mmol/L BUN (9-20) mg/dL Creatinine (0.66-1.25) mg/dL Est GFR (CKD-EPI)AfAm (>60 ml/min/1.73 sqM) Est GFR (CKD-EPI)NonAf (>60 ml/min/1.73 sqM) Glucose (74-99) mg/dL POC Glucose (mg/dL) 427 H (70-110) mg/dL POC Glu Electronic Installer ID Bhavnamaribeth Kourtney Phosphorus (2.5-4.5) mg/dL Acetone, Qual (Negative) Disposition Clinical Impression: DKA (diabetic ketoacidosis) Disposition: ADMITTED IP TO THIS [facility] Condition: Critical Referrals: None,Stated [Primary Care Provider] - 1-2 days Decision Time: 20:34
[2023-09-10 18:48] LABS: Basophils % (A) 0 %; Eosinophils # (A) 0.1 k/uL (0-0.7); Eosinophils % (A) 0 %; HCT 40.6 % (39.0-53.0); HGB 12.5 gm/dL (13.0-17.5); Hypochromasia Marked; Lymphocytes # (A) 1.1 k/uL (1.0-4.8); Lymphocytes % (A) 5 %; MCH 27.2 pg (25.0-35.0); MCHC 30.8 g/dL (31.0-37.0); MCV 88.4 fL (80.0-100.0); Mean Platelet Volume 8.1; Monocytes # (A) 0.6 k/uL (0-1.0); Monocytes % (A) 3 %; Neutrophils # (A) 18.4 k/uL (1.3-7.7); Neutrophils % (A) 90 %; Platelet Count 687 k/uL (150-450); Poikilocytosis Slight; RBC 4.59 m/uL (4.30-5.90); RDW 15.4 % (11.5-15.5); WBC 20.3 k/uL (3.8-10.6)
[2023-09-10] MEDS: SODIUM CHLORIDE 0.9% 1,000 ML IV SCH (19:01)
[2023-09-10] MEDS: INSULIN REGULAR BOLUS (FROM DRIP BAG) IV ONE (19:02)
[2023-09-10] MEDS: INSULIN REGULAR 100 UNIT in SODIUM CHLORIDE 0.9% 100 ML IV SCH (19:03)
[2023-09-10 19:05] LABS: Glucose,Whole Blood 582 mg/dL (70-110)
[2023-09-10 20:00] LABS: African American GFR (CKD) >90 (>60 ml/min/1.73 sqM); Anion Gap 30 mmol/L; Blood Urea Nitrogen 21 mg/dL (9-20); Chloride 102 mmol/L (98-107); Non-African American GFR(CKD) >90 (>60 ml/min/1.73 sqM); Sodium 137 mmol/L (137-145)
[2023-09-10 20:04] LABS: VBG PH 7.22 (7.31-7.41)
[2023-09-10 20:07] LABS: Carbon Dioxide 5 mmol/L (22-30); Glucose 600 mg/dL (74-99)
[2023-09-10 20:18] LABS: Glucose,Whole Blood 427 mg/dL (70-110)
[2023-09-10 20:25] LABS: African American GFR (CKD) >90 (>60 ml/min/1.73 sqM); Anion Gap 27 mmol/L; Blood Urea Nitrogen 21 mg/dL (9-20); Chloride 104 mmol/L (98-107); Non-African American GFR(CKD) >90 (>60 ml/min/1.73 sqM); Potassium 4.3 mmol/L (3.5-5.1); Sodium 140 mmol/L (137-145)
[2023-09-10] MEDS ORDERED: NALOXONE 0.4 MG/ML 1 ML VIAL IV PRN (20:29)
[2023-09-10 20:35] LABS: Glucose 513 mg/dL (74-99)
[2023-09-10 20:36] LABS: Carbon Dioxide 9 mmol/L (22-30)
[2023-09-10 21:14] LABS: Glucose,Whole Blood 294 mg/dL (70-110)
[2023-09-10 22:13] LABS: Glucose,Whole Blood 222 mg/dL (70-110)
[2023-09-10 23:08] LABS: Glucose,Whole Blood 165 mg/dL (70-110)
[2023-09-10] MEDS: ONDANSETRON 4 MG/2 ML VIAL IVP STA (23:08)
[2023-09-11 00:15] LABS: Glucose,Whole Blood 108 mg/dL (70-110)
[2023-09-11] MEDS: D5-0.45% NACL WITH KCL 20MEQ/L 1,000 ML IV SCH (00:51)
--- NOTE | 2023-09-11 01:25 | P.CNPUL ---
History of Present Illness Consult date: 09/11/23 Requesting physician: Flaco Villela Reason for consult: other (Diabetic ketoacidosis) Chief complaint: Elevated blood sugars, nausea and vomiting History of present illness: Patient is a 28-year-old white male with past medical history significant for type 1 diabetes and medication noncompliance. He has had 13 hospitalizations for DKA so far this year. He was just recently hospitalized on 09/07/2023 for the same, and discharged 2 days later. Patient was discharged from the hospital approximately 24 hours when he returned. He was having elevated blood sugars followed by nausea and vomiting and retching. Labs on admission consistent with DKA. Blood sugar 600 g/dL, serum CO2 5, anion gap 30, acetone positive. Patient was started on the DKA protocol in the emergency room, and is currently in room 15. He is alert and able to answer my questions. Appears disheveled and fatigued. He is in no acute distress. On room air. Kussmaul respirations noted. Sinus tachycardia on bedside monitor, with a rate of 104 bpm. Blood pressure normotensive. Denies any infectious-like symptoms. Denies fever. Denies cough or shortness of breath. He continues to have retching without sub stantial emesis. Denies any hematemesis. Denies abdominal pain, diarrhea, carly blood loss or melena, hematemesis. Continues on insulin which is infusing at 8 units/h. Also started on D5W/half-normal saline/20 mEq of K at 150 MLS per hour. Most recent capillary blood sugar check is down to 108 mg/dL. Most recent available BMP includes a sodium 140, potassium 4.3, chloride 104, serum bicarb 9, BUN 21, creatinine 0.83. CBC shows some likely reactive leukocytosis and thrombocytosis, likely reactive to DKA and severe dehydration. Patient was admitted to the intensive care unit for DKA management. Review of Systems REVIEW OF SYSTEMS: CONSTITUTIONAL: Denies any recent significant weight loss or weight gain. EYES: Denies change in vision. EARS, NOSE, MOUTH, THROAT: Denies headaches, denies sore throat. CARDIOVASCULAR: Denies chest pain, palpitations or syncopal episodes. RESPIRATORY: Denies shortness of breath, cough, congestion or hemoptysis. GASTROINTESTINAL: See HPI. GENITOURINARY: Denies hematuria, denies infections. MUSKULOSKELETAL: Denies pain, denies swelling. INTEGUMENTARY: Denies rash, denies eczema. NEUROLOGICAL: Denies recent memory loss, no recent seizure activity. PSYCHIATRIC: Denies anxiety, denies depression. HEMATOLOGIC/LYMPHATIC: Denies anemia, denies enlarged lymph node Past Medical History Past Medical History: Asthma, Diabetes Mellitus, Neurologic Disorder, Skin Disorder Additional Past Medical History / Comment(s): IDDM type I, neuropathy bilateral feet, DKA, eczema. History of Any Multi-Drug Resistant Organisms: None Reported Past Surgical History: Adenoidectomy Additional Past Surgical History / Comment(s): 2002 Recent EGD- gastritis Past Anesthesia/Blood Transfusion Reactions: No Reported Reaction Past Psychological History: Anxiety, Depression Smoking Status: Vaper - Past Family History Mother Family Medical History: CVA/TIA Additional Family Medical History / Comment(s): TIA Father Family Medical History: Hyperlipidemia, Hypertension Additional Family Medical History / Comment(s): . Medications and Allergies Home Medications Medication Instructions Recorded Confirmed Type Ergocalciferol [Vitamin D2 (1250 1,250 mcg PO Q30D 04/29/23 09/10/23 History Mcg = 36932 Iu)] Famotidine [Pepcid] 20 mg PO BID 04/29/23 09/10/23 History Gabapentin 600 mg PO TID 04/29/23 09/10/23 History Losartan Potassium 50 mg PO DAILY 04/29/23 09/10/23 History Mirtazapine 7.5 mg PO HS 04/29/23 09/10/23 History Insulin Glargine,Hum.rec.anlog 30 units SQ HS 09/07/23 09/10/23 History [Insulin Glargine] Insulin Lispro 7 units SQ AC-TID 09/07/23 09/10/23 History Allergies Allergy/AdvReac Type Severity Reaction Status Date / Time No Known Allergies Allergy Verified 09/10/23 18:59 Physical Exam Vitals: Vital Signs Temp Pulse Resp BP Pulse Ox 09/11/23 00:16 106 H 20 130/101 98 09/10/23 22:00 116 H 26 H 95/63 100 09/10/23 21:00 115 H 26 H 123/84 100 09/10/23 20:00 115 H 22 104/66 99 09/10/23 18:12 129 H 18 103/65 97 09/10/23 18:05 97.8 F 130 H 26 H 133/90 100 Intake and Output 09/10/23 09/10/23 09/11/23 14:59 22:59 06:59 Intake Total .862 17.108 Balance .862 17.108 Intake: Intake, IV Titration . 17.108 Amount Insulin Regular 100 unit ..108 In Sodium Chloride 0.9% 100 ml @ 0.1 UNITS/KG/HR 6.414 mls/hr IV .[id number] [facility] Rx#:[id number] Other: Weight 63.503 kg GENERAL EXAM: Alert, 27-year-old white male, disheveled, continues to have retching, but in no apparent distress. HEAD: Normocephalic and atraumatic EYES: Normal reaction of pupils, equal size. NOSE: Clear with pink turbinates. THROAT: No erythema or exudates. NECK: No masses, no JVD. CHEST: No chest wall deformity. LUNGS: Equal air entry with no crackles, wheeze, rhonchi or dullness. On room air. No conversational dyspnea or accessory muscle use. Kussmaul respirations noted. CVS: S1 and S2 normal without murmur, regular rhythm. No other extra heart sounds ABDOMEN: No hepatosplenomegaly, active bowel sounds, no guarding or rigidity. SPINE: No scoliosis or deformity SKIN: No rashes CENTRAL NERVOUS SYSTEM: No focal deficits, tone is normal in all 4 extremities. EXTREMITIES: There is no peripheral edema, clubbing, or cyanosis. Peripheral pulses are intact. Results - Laboratory Findings CBC and BMP: 09/10/23 18:35 09/10/23 19:40 Abnormal lab findings: Abnormal Labs 09/10/23 09/10/23 09/10/23 18:01 18:35 18:59 WBC 20.3 H Hgb 12.5 L MCHC 30.8 L Plt Count 687 H Neutrophils # 18.4 H VBG pH VBG pCO2 VBG HCO3 Carbon Dioxide BUN Glucose POC Glucose (mg/dL) 579 H 582 H 09/10/23 09/10/23 09/10/23 19:18 19:40 19:40 WBC Hgb MCHC Plt Count Neutrophils # VBG pH 7.22 L VBG pCO2 28 L VBG HCO3 11 L Carbon Dioxide 5 L* 9 L* BUN 21 H 21 H Glucose 600 H* 513 H* POC Glucose (mg/dL) 09/10/23 09/10/23 09/10/23 20:16 21:13 22:12 WBC Hgb MCHC Plt Count Neutrophils # VBG pH VBG pCO2 VBG HCO3 Carbon Dioxide BUN Glucose POC Glucose (mg/dL) 427 H 294 H 222 H 09/10/23 23:08 WBC Hgb MCHC Plt Count Neutrophils # VBG pH VBG pCO2 VBG HCO3 Carbon Dioxide BUN Glucose POC Glucose (mg/dL) 165 H Assessment and Plan Assessment: Acute diabetic ketoacidosis, likely secondary to medication noncompliance. Patient has had numerous episodes of DKA, recently discharged on 09/09/2023 for the same, he is being treated based on the DKA protocol Severe anion gap metabolic acidosis, secondary to above Severe dehydration Type 1 diabetes mellitus, with poor medication compliance. Acute leukocytosis, likely reactive to DKA Diabetic neuropathy History of major depression Chronic marijuana use Chronic ongoing nicotine dependence Plan: The patient was seen and evaluated Medications and labs reviewed Monitor electrolytes Continue IV maintenance fluids Continue DKA protocol Patient will be admitted to the intensive care unit once bed available. Will continue to follow. Will likely downgrade the patient once DKA is resolved. I have personally seen and examined the patient, performed the documentation and the assessment and plan as written. Number of minutes spent on the visit:20 Time with Patient: Greater than 30
[2023-09-11 01:27] LABS: Glucose,Whole Blood 116 mg/dL (70-110)
[2023-09-11 02:10] LABS: Glucose,Whole Blood 128 mg/dL (70-110)
[2023-09-11 02:34] LABS: African American GFR (CKD) >90 (>60 ml/min/1.73 sqM); Anion Gap 14 mmol/L; Blood Urea Nitrogen 20 mg/dL (9-20); Carbon Dioxide 16 mmol/L (22-30); Chloride 111 mmol/L (98-107); Glucose 130 mg/dL (74-99); Non-African American GFR(CKD) >90 (>60 ml/min/1.73 sqM); Potassium 4.2 mmol/L (3.5-5.1); Sodium 141 mmol/L (137-145)
[2023-09-11 03:13] LABS: Glucose,Whole Blood 181 mg/dL (70-110)
[2023-09-11] MEDS: ONDANSETRON 4 MG/2 ML VIAL IVP PRN (04:24)
[2023-09-11 04:25] LABS: Glucose,Whole Blood 229 mg/dL (70-110)
[2023-09-11 05:34] LABS: Glucose,Whole Blood 254 mg/dL (70-110)
[2023-09-11 06:13] LABS: Potassium 4.5 mmol/L (3.5-5.1)
[2023-09-11 06:22] LABS: Glucose,Whole Blood 263 mg/dL (70-110)
[2023-09-11 07:34] LABS: Glucose,Whole Blood 220 mg/dL (70-110)
[2023-09-11 08:30] LABS: Glucose,Whole Blood 225 mg/dL (70-110)
[2023-09-11 09:31] LABS: Glucose,Whole Blood 197 mg/dL (70-110)
[2023-09-11 10:40] VITALS: BMI 17.4
[2023-09-11 10:44] LABS: Glucose,Whole Blood 178 mg/dL (70-110)
[2023-09-11 11:12] LABS: African American GFR (CKD) >90 (>60 ml/min/1.73 sqM); Anion Gap 10 mmol/L; Blood Urea Nitrogen 19 mg/dL (9-20); Calcium 8.7 mg/dL (8.4-10.2); Carbon Dioxide 19 mmol/L (22-30); Chloride 110 mmol/L (98-107); Glucose 196 mg/dL (74-99); Non-African American GFR(CKD) >90 (>60 ml/min/1.73 sqM); Potassium 4.2 mmol/L (3.5-5.1); Sodium 139 mmol/L (137-145)
[2023-09-11 11:18] LABS: Glucose,Whole Blood 191 mg/dL (70-110)
[2023-09-11 12:18] LABS: Glucose,Whole Blood 184 mg/dL (70-110)
[2023-09-11 12:48] LABS: African American GFR (CKD) >90 (>60 ml/min/1.73 sqM); Anion Gap 9 mmol/L; Blood Urea Nitrogen 19 mg/dL (9-20); Carbon Dioxide 18 mmol/L (22-30); Chloride 108 mmol/L (98-107); Glucose 167 mg/dL (74-99); Non-African American GFR(CKD) >90 (>60 ml/min/1.73 sqM); Potassium 3.9 mmol/L (3.5-5.1); Sodium 135 mmol/L (137-145)
[2023-09-11 13:19] LABS: Glucose,Whole Blood 170 mg/dL (70-110)
[2023-09-11 14:43] LABS: Glucose,Whole Blood 137 mg/dL (70-110)
[2023-09-11 15:55] LABS: Glucose,Whole Blood 98 mg/dL (70-110)
[2023-09-11 16:37] LABS: Glucose,Whole Blood 148 mg/dL (70-110)
[2023-09-11] MEDS: INSULIN LISPRO (For Pump) 100 UNIT/ML VIAL SQ-PUMP SCH (16:40)
[2023-09-11 17:04] LABS: African American GFR (CKD) >90 (>60 ml/min/1.73 sqM); Anion Gap 10 mmol/L; Blood Urea Nitrogen 17 mg/dL (9-20); Carbon Dioxide 19 mmol/L (22-30); Chloride 104 mmol/L (98-107); Glucose 128 mg/dL (74-99); Non-African American GFR(CKD) >90 (>60 ml/min/1.73 sqM); Sodium 133 mmol/L (137-145)
[2023-09-11 18:28] LABS: Glucose,Whole Blood 262 mg/dL (70-110)
[2023-09-11 20:20] LABS: Glucose,Whole Blood 251 mg/dL (70-110)
[2023-09-11 21:41] LABS: VBG PH 7.46 (7.31-7.41)
[2023-09-11 21:49] LABS: African American GFR (CKD) >90 (>60 ml/min/1.73 sqM); Anion Gap 7 mmol/L; Blood Urea Nitrogen 11 mg/dL (9-20); Carbon Dioxide 21 mmol/L (22-30); Chloride 102 mmol/L (98-107); Glucose 231 mg/dL (74-99); Non-African American GFR(CKD) >90 (>60 ml/min/1.73 sqM); Potassium 3.7 mmol/L (3.5-5.1); Sodium 130 mmol/L (137-145)
[2023-09-11 21:56] LABS: Basophils # (A) 0.1 k/uL (0-0.2); Basophils % (A) 0 %; Eosinophils # (A) 0.2 k/uL (0-0.7); Eosinophils % (A) 1 %; HCT 32.2 % (39.0-53.0); HGB 10.3 gm/dL (13.0-17.5); Hypochromasia Slight; Lymphocytes # (A) 3.3 k/uL (1.0-4.8); Lymphocytes % (A) 21 %; MCH 27.1 pg (25.0-35.0); MCHC 31.9 g/dL (31.0-37.0); MCV 84.9 fL (80.0-100.0); Mean Platelet Volume 6.9; Monocytes # (A) 0.7 k/uL (0-1.0); Monocytes % (A) 5 %; Neutrophils # (A) 11.2 k/uL (1.3-7.7); Neutrophils % (A) 71 %; Platelet Count 523 k/uL (150-450); RBC 3.79 m/uL (4.30-5.90); RDW 15.2 % (11.5-15.5); WBC 15.7 k/uL (3.8-10.6)
[2023-09-11] MEDS: INSULIN DETEMIR (LEVEMIR) 100 UNIT/ML SYR SQ SCH (22:07)
[2023-09-12 01:07] LABS: African American GFR (CKD) >90 (>60 ml/min/1.73 sqM); Anion Gap 7 mmol/L; Blood Urea Nitrogen 9 mg/dL (9-20); Carbon Dioxide 24 mmol/L (22-30); Chloride 101 mmol/L (98-107); Glucose 189 mg/dL (74-99); Non-African American GFR(CKD) >90 (>60 ml/min/1.73 sqM); Potassium 3.6 mmol/L (3.5-5.1); Sodium 132 mmol/L (137-145)
[2023-09-12 02:46] LABS: Glucose,Whole Blood 89 mg/dL (70-110)
[2023-09-12 06:07] LABS: Glucose,Whole Blood 95 mg/dL (70-110)
[2023-09-12 06:48] LABS: African American GFR (CKD) >90 (>60 ml/min/1.73 sqM); Anion Gap 10 mmol/L; Blood Urea Nitrogen 6 mg/dL (9-20); Carbon Dioxide 24 mmol/L (22-30); Chloride 100 mmol/L (98-107); Glucose 99 mg/dL (74-99); Non-African American GFR(CKD) >90 (>60 ml/min/1.73 sqM); Potassium 3.4 mmol/L (3.5-5.1); Sodium 134 mmol/L (137-145)
[2023-09-12 11:34] LABS: Glucose,Whole Blood 167 mg/dL (70-110)
--- NOTE | 2023-09-12 15:11 | P.PN ---
Subjective Progress Note Date: 09/12/23 Patient is a 28-year-old white male with past medical history significant for type 1 diabetes and medication noncompliance. He has had 13 hospitalizations for DKA so far this year. He was just recently hospitalized on 09/07/2023 for the same, and discharged 2 days later. Patient was discharged from the hospital approximately 24 hours when he returned. He was having elevated blood sugars followed by nausea and vomiting and retching. Labs on admission consistent with DKA. Blood sugar 600 g/dL, serum CO2 5, anion gap 30, acetone positive. Patient was started on the DKA protocol in the emergency room, and is currently in room 15. He is alert and able to answer my questions. Appears disheveled and fatigued. He is in no acute distress. On room air. Kussmaul respirations noted. Sinus tachycardia on bedside monitor, with a rate of 104 bpm. Blood pressure normotensive. Denies any infectious-like symptoms. Denies fever. Denies cough or shortness of breath. He continues to have retching without substantial emesis. Denies any hematemesis. Denies abdominal pain, diarrhea, carly blood loss or melena, hematemesis. Continues on insulin which is infusing at 8 units/h. Also started on D5W/half-normal saline/20 mEq of K at 150 MLS per hour. Most recent capillary blood sugar check is down to 108 mg/dL. Most recent available BMP includes a sodium 140, potassium 4.3, chloride 104, serum bicarb 9, BUN 21, creatinine 0.83. CBC shows some likely reactive leukocytosis and thrombocytosis, likely reactive to DKA and severe dehydration. Patient was admitted to the intensive care unit for DKA management. The patient is seen today September 12, 2023 in follow-up in the emergency depart ment. He is currently resting comfortably on a stretcher. Awake and alert in no acute distress. Maintaining O2 saturations in the 90s on room air. He is afebrile. Hemodynamically stable. Sodium 134. Potassium 3.4. Bicarb 24. Anion gap 10. BUN 6. Creatinine 0.54. Glucose 99. He has been transition to Levemir and NovoLog sliding scale. Objective - Vital Signs Vital signs: Vital Signs Temp 98 F 09/11/23 04:29 Pulse 70 09/12/23 06:12 Resp 16 09/12/23 06:12 BP 116/61 09/12/23 06:12 Pulse Ox 99 09/12/23 06:12 FiO2 Intake & Output 09/11/23 09/12/23 09/12/23 18:59 06:59 18:59 Intake Total 30.067 3.03 Balance 30.067 3.03 Weight 63.503 kg Intake: Intake, IV Titration 30.067 3.03 Amount Insulin Regular 100 unit 30.067 3.03 In Sodium Chloride 0.9% 100 ml @ 0.1 UNITS/KG/HR 6.414 mls/hr IV .[id number] [facility] Rx#:[id number] - Exam GENERAL EXAM: Alert, thin 28-year-old male, on room air, comfortable in no apparent distress. HEAD: Normocephalic. EYES: Normal reaction of pupils, equal size. NOSE: Clear with pink turbinates. THROAT: No erythema or exudates. NECK: No masses, no JVD. CHEST: No chest wall deformity. LUNGS: Equal air entry with no crackles, wheeze, rhonchi or dullness. CVS: S1 and S2 normal with no audible murmur, regular rhythm. ABDOMEN: No hepatosplenomegaly, normal bowel sounds, no guarding or rigidity. SPINE: No scoliosis or deformity SKIN: No rashes CENTRAL NERVOUS SYSTEM: No focal deficits, tone is normal in all 4 extremities. EXTREMITIES: There is no peripheral edema. No clubbing, no cyanosis. Peripheral pulses are intact. - Labs CBC & Chem 7: 09/11/23 21:26 09/12/23 05:12 Labs: Abnormal Lab Results - Last 24 Hours (Table) 09/11/23 09/11/23 09/11/23 Range/Units 16:24 16:34 18:26 WBC (3.8-10.6) k/uL RBC (4.30-5.90) m/uL Hgb (13.0-17.5) gm/dL Hct (39.0-53.0) % Plt Count (150-450) k/uL Neutrophils # (1.3-7.7) k/uL VBG pH (7.31-7.41) VBG pCO2 (37-51) mmHg VBG HCO3 (24-28) mmol/L Sodium 133 L (137-145) mmol/L Potassium (3.5-5.1) mmol/L Carbon Dioxide 19 L (22-30) mmol/L BUN (9-20) mg/dL Creatinine 0.49 L (0.66-1.25) mg/dL Glucose 128 H (74-99) mg/dL POC Glucose (mg/dL) 148 H 262 H (70-110) mg/dL 09/11/23 09/11/23 09/11/23 Range/Units 20:13 21:26 21:26 WBC 15.7 H (3.8-10.6) k/uL RBC 3.79 L (4.30-5.90) m/uL Hgb 10.3 L (13.0-17.5) gm/dL Hct 32.2 L (39.0-53.0) % Plt Count 523 H (150-450) k/uL Neutrophils # 11.2 H (1.3-7.7) k/uL VBG pH (7.31-7.41) VBG pCO2 (37-51) mmHg VBG HCO3 (24-28) mmol/L Sodium 130 L (137-145) mmol/L Potassium (3.5-5.1) mmol/L Carbon Dioxide 21 L (22-30) mmol/L BUN (9-20) mg/dL Creatinine 0.48 L (0.66-1.25) mg/dL Glucose 231 H (74-99) mg/dL POC Glucose (mg/dL) 251 H (70-110) mg/dL 09/11/23 09/11/23 09/12/23 Range/Units 21:26 23:54 05:12 WBC (3.8-10.6) k/uL RBC (4.30-5.90) m/uL Hgb (13.0-17.5) gm/dL Hct (39.0-53.0) % Plt Count (150-450) k/uL Neutrophils # (1.3-7.7) k/uL VBG pH 7.46 H (7.31-7.41) VBG pCO2 32 L (37-51) mmHg VBG HCO3 23 L (24-28) mmol/L Sodium 132 L 134 L (137-145) mmol/L Potassium 3.4 L (3.5-5.1) mmol/L Carbon Dioxide (22-30) mmol/L BUN 6 L (9-20) mg/dL Creatinine 0.57 L 0.54 L (0.66-1.25) mg/dL Glucose 189 H (74-99) mg/dL POC Glucose (mg/dL) (70-110) mg/dL 09/12/23 Range/Units 11:33 WBC (3.8-10.6) k/uL RBC (4.30-5.90) m/uL Hgb (13.0-17.5) gm/dL Hct (39.0-53.0) % Plt Count (150-450) k/uL Neutrophils # (1.3-7.7) k/uL VBG pH (7.31-7.41) VBG pCO2 (37-51) mmHg VBG HCO3 (24-28) mmol/L Sodium (137-145) mmol/L Potassium (3.5-5.1) mmol/L Carbon Dioxide (22-30) mmol/L BUN (9-20) mg/dL Creatinine (0.66-1.25) mg/dL Glucose (74-99) mg/dL POC Glucose (mg/dL) 167 H (70-110) mg/dL Assessment and Plan Assessment: Acute diabetic ketoacidosis, likely secondary to medication noncompliance. Patient has had numerous episodes of DKA, recently discharged on 09/09/2023 for the same, he is being treated based on the DKA protocol Severe anion gap metabolic acidosis, secondary to above, recovered Severe dehydration, improved Type 1 diabetes mellitus, with poor medication compliance. Acute leukocytosis, likely reactive to DKA Diabetic neuropathy History of major depression Chronic marijuana use Chronic ongoing nicotine dependence Plan: The patient was seen and evaluated Labs and medications reviewed Cleared for discharge from the critical care standpoint Again educated regarding the importance of medication compliance I have personally seen and examined the patient, performed the documentation and the assessment and plan as written. Number of minutes spent on the visit: 10.
[2023-09-12 16:46] LABS: Glucose,Whole Blood 266 mg/dL (70-110)
[2023-09-12 19:42] LABS: Glucose,Whole Blood 360 mg/dL (70-110)
--- NOTE | 2023-09-12 23:21 | PN ---
PROGRESS NOTE DATE OF SERVICE: 09/11/2023 CHIEF COMPLAINT: DKA. HISTORY OF PRESENT ILLNESS: This gentleman is still quite lethargic and he is nauseated. His blood sugar is coming down and his gap is closing. PHYSICAL EXAMINATION: GENERAL: He remains dehydrated and he is still lethargic. CHEST: Clear. CARDIAC: Normal. IMPRESSION: 1. Diabetic ketoacidosis. 2. Dehydration. PLAN: Continue with protocol until he is stable. MMODL / IJN: [id number] /
--- NOTE | 2023-09-12 23:27 | PN ---
PROGRESS NOTE DATE OF SERVICE: 09/12/2023 HISTORY OF PRESENT ILLNESS: This gentleman is doing well. His gap is closing. He is waiting to go upstairs. PHYSICAL EXAMINATION: GENERAL: He is awake and alert. He is still lethargic. CHEST: Clear. CARDIAC: Normal. IMPRESSION: 1. Diabetic ketoacidosis. 2. Dehydration. PLAN: Transfer to med/surg. MMBIANCA / TRAMN: [id number] /
--- NOTE | 2023-09-12 23:30 | HP ---
HISTORY AND PHYSICAL CHIEF COMPLAINT: Ketoacidosis. HISTORY OF PRESENT ILLNESS: This is another admission for this 28-year-old white male. He has been in and out of the hospital on numerous occasions for DKA. REVIEW OF SYSTEMS: He is lethargic and has been vomiting. Past medical history, family history, and personal and social histories are unchanged from all of his other admitting summaries. He does not take his insulin or any other medications. He has gastroparesis and peripheral neuropathy. PHYSICAL EXAMINATION: VITAL SIGNS: Blood pressure is 102/64 with a pulse of 120, respirations of 38. He is afebrile. GENERAL: He appeared to be slender, dehydrated, and lethargic. HEAD, EARS, EYES, NOSE, MOUTH AND THROAT: Grossly normal. CHEST: Clear. CARDIAC: Demonstrates tachycardia. ABDOMEN: Flat, soft, nontender. EXTREMITIES: Normal. NEUROLOGICAL: He was lethargic. IMPRESSION: 1. Diabetic ketoacidosis. 2. Gastroparesis. 3. Peripheral neuropathy. PLAN: Management of his diabetic ketoacidosis. GRACE / ALDEN: [id number] /
[2023-09-13 00:59] LABS: Glucose,Whole Blood 227 mg/dL (70-110)
[2023-09-13 05:37] LABS: Glucose,Whole Blood 60 mg/dL (70-110)
[2023-09-13 06:10] LABS: Glucose,Whole Blood 115 mg/dL (70-110)
[2023-09-13 07:14] VITALS: RESP 17
[2023-09-13 11:22] LABS: Glucose,Whole Blood 122 mg/dL (70-110)
[2023-09-13 13:49] VITALS: BP 125/87; PULSE 87; TEMP 98
--- NOTE | 2023-09-13 13:59 | P.PN ---
Subjective Progress Note Date: 09/13/23 Patient is a 28-year-old white male with past medical history significant for type 1 diabetes and medication noncompliance. He has had 13 hospitalizations for DKA so far this year. He was just recently hospitalized on 09/07/2023 for the same, and discharged 2 days later. Patient was discharged from the hospital approximately 24 hours when he returned. He was having elevated blood sugars followed by nausea and vomiting and retching. Labs on admission consistent with DKA. Blood sugar 600 g/dL, serum CO2 5, anion gap 30, acetone positive. Patient was started on the DKA protocol in the emergency room, and is currently in room 15. He is alert and able to answer my questions. Appears disheveled and fatigued. He is in no acute distress. On room air. Kussmaul respirations noted. Sinus tachycardia on bedside monitor, with a rate of 104 bpm. Blood pressure normotensive. Denies any infectious-like symptoms. Denies fever. Denies cough or shortness of breath. He continues to have retching without substantial emesis. Denies any hematemesis. Denies abdominal pain, diarrhea, carly blood loss or melena, hematemesis. Continues on insulin which is infusing at 8 units/h. Also started on D5W/half-normal saline/20 mEq of K at 150 MLS per hour. Most recent capillary blood sugar check is down to 108 mg/dL. Most recent available BMP includes a sodium 140, potassium 4.3, chloride 104, serum bicarb 9, BUN 21, creatinine 0.83. CBC shows some likely reactive leukocytosis and thrombocytosis, likely reactive to DKA and severe dehydration. Patient was admitted to the intensive care unit for DKA management. The patient is seen today September 12, 2023 in follow-up in the emergency depart ment. He is currently resting comfortably on a stretcher. Awake and alert in no acute distress. Maintaining O2 saturations in the 90s on room air. He is afebrile. Hemodynamically stable. Sodium 134. Potassium 3.4. Bicarb 24. Anion gap 10. BUN 6. Creatinine 0.54. Glucose 99. He has been transition to Levemir and NovoLog sliding scale. The patient is seen today September 13, 2023 in follow-up on the regular medical floor. He is sitting up in bed. Awake and alert in no acute distress. He denies any shortness of breath, cough or congestion. He is maintaining good O2 saturations in the 90s on room air. He has been afebrile. Hemodynamically stable. Blood sugars better controlled. Currently 122. He remains on Levemir and Humalog. No new labs today. Objective - Vital Signs Vital signs: Vital Signs Temp 98.0 F 09/13/23 13:46 Pulse 87 09/13/23 13:46 Resp 17 09/13/23 13:46 BP 125/87 09/13/23 13:46 Pulse Ox 99 09/13/23 13:46 FiO2 Intake & Output 09/12/23 09/13/23 09/13/23 18:59 06:59 18:59 Intake Total 1200 Balance 1200 Weight 63.503 kg 63.503 kg Intake: Oral 1200 Other: # Voids 3 - Exam GENERAL EXAM: Alert, pleasant 28-year-old male, resting in bed, comfortable in no apparent distress. HEAD: Normocephalic. EYES: Normal reaction of pupils, equal size. NOSE: Clear with pink turbinates. THROAT: No erythema or exudates. NECK: No masses, no JVD. CHEST: No chest wall deformity. LUNGS: Equal air entry with no crackles, wheeze, rhonchi or dullness. On room air. CVS: S1 and S2 normal with no audible murmur, regular rhythm. ABDOMEN: No hepatosplenomegaly, normal bowel sounds, no guarding or rigidity. SPINE: No scoliosis or deformity SKIN: No rashes CENTRAL NERVOUS SYSTEM: No focal deficits, tone is normal in all 4 extremities. EXTREMITIES: There is no peripheral edema. No clubbing, no cyanosis. Peripheral pulses are intact. - Labs CBC & Chem 7: 09/11/23 21:26 09/12/23 05:12 Labs: Abnormal Lab Results - Last 24 Hours (Table) 09/12/23 09/12/23 09/13/23 Range/Units 16:44 19:41 00:58 POC Glucose (mg/dL) 266 H 360 H 227 H (70-110) mg/dL 09/13/23 09/13/23 09/13/23 Range/Units 05:35 06:09 11:21 POC Glucose (mg/dL) 60 L 115 H 122 H (70-110) mg/dL Assessment and Plan Assessment: Acute diabetic ketoacidosis, likely secondary to medication noncompliance. Patient has had numerous episodes of DKA, recently discharged on 09/09/2023 for the same, he is being treated based on the DKA protocol. Recovered and back on Levemir and NovoLog Severe anion gap metabolic acidosis, secondary to above, recovered Severe dehydration, improved Type 1 diabetes mellitus, with poor medication compliance. Acute leukocytosis, likely reactive to DKA Diabetic neuropathy History of major depression Chronic marijuana use Chronic ongoing nicotine dependence Plan: The patient was seen and evaluated Medications reviewed Stable and on room air Resumed on Levemir and NovoLog Cleared for discharge Educated regarding the importance of medication compliance I have personally seen and examined the patient, performed the documentation and the assessment and plan as written. Number of minutes spent on the visit: 10.
--- NOTE | 2023-09-14 03:48 | DS ---
DISCHARGE SUMMARY CHIEF COMPLAINT: DKA. HISTORY OF PRESENT ILLNESS AND PHYSICAL EXAMINATION: Details of this man's history and physical can be found in his admitting summary. COURSE IN HOSPITAL: After admission, he was placed on bedrest, started on intravenous fluids and ICU. He was started on DKA protocol. Blood sugars came down. His gap closed. He was doing well. It was felt he could be discharged on the . He will follow up in the office. FINAL DIAGNOSES: 1. Diabetic ketoacidosis. 2. Dehydration. 3. Uncontrolled type 1 insulin-dependent diabetes mellitus. 4. Noncompliant patient. 5. Depression. 6. Acute gastroparesis. 7. Peripheral neuropathy. OPERATIONS: None. CONSULTATIONS: ICU. MMODL / IJN: [id number] /
== END 2023-09-13 16:09 | disposition home or self-care (01) | DRG 420 ==
LOC: EC 17:56 → 2SICU 20:30 → 3SCARD 09-11 20:37 → 4SSUR 09-12 14:37
PROVIDERS: ADMIT Family Medicine; ATTEND Family Medicine
DX: E10.10 Type 1 diabetes mellitus with ketoacidosis without coma (principal); E10.43 Type 1 diabetes mellitus with diabetic autonomic (poly)neuropathy; E10.65 Type 1 diabetes mellitus with hyperglycemia; F32.A Depression, unspecified; Z79.4 Long term (current) use of insulin; D72.829 Elevated white blood cell count, unspecified; Z71.3 Dietary counseling and surveillance; Z28.310 Unvaccinated for COVID-19; D75.839 Thrombocytosis, unspecified; E86.0 Dehydration; F17.200 Nicotine dependence, unspecified, uncomplicated; K31.84 Gastroparesis; Z79.899 Other long term (current) drug therapy; Z91.148 Patient's other noncompliance with medication regimen for other reason; Z91.199 Patient's noncompliance with other medical treatment and regimen due to unspecified reason
CPT/HCPCS: 36415; 80048; 80051; 82009; 82565; 82803; 82947; 84100; 84520; 85025; 93005; 96361; 96374; 96376; 99291

== ENCOUNTER 2023-09-17 11:35 | Inpatient (IN) | payer OTHER ==
[2023-09-17 12:10] LABS: Glucose,Whole Blood 493 mg/dL (70-110)
[2023-09-17] MEDS: SODIUM CHLORIDE 0.9% 1,000 ML IV STA ×2 (12:13→12:14)
[2023-09-17] MEDS: PANTOPRAZOLE 40 MG/10 ML VIAL IVP STA (12:16)
[2023-09-17] MEDS: ONDANSETRON 4 MG/2 ML VIAL IVP STA (12:16)
[2023-09-17 12:29] LABS: Basophils # (A) 0.1 k/uL (0-0.2); Basophils % (A) 0 %; Eosinophils # (A) 0.1 k/uL (0-0.7); Eosinophils % (A) 1 %; HCT 41.2 % (39.0-53.0); HGB 12.4 gm/dL (13.0-17.5); Hypochromasia Marked; Lymphocytes # (A) 2.8 k/uL (1.0-4.8); Lymphocytes % (A) 18 %; MCH 26.9 pg (25.0-35.0); MCHC 30.1 g/dL (31.0-37.0); MCV 89.3 fL (80.0-100.0); Mean Platelet Volume 7.8; Monocytes # (A) 0.5 k/uL (0-1.0); Monocytes % (A) 3 %; Neutrophils # (A) 11.4 k/uL (1.3-7.7); Neutrophils % (A) 76 %; Platelet Count 630 k/uL (150-450); RBC 4.62 m/uL (4.30-5.90); RDW 15.6 % (11.5-15.5)
[2023-09-17] MEDS: SODIUM ZIRCONIUM CYCLOSILICATE 10 GM PACKET PO ONE (12:37)
[2023-09-17] MEDS: INSULIN REGULAR 100 UNIT/ML VIAL (IV) IV ONE (12:37)
[2023-09-17] MEDS: SODIUM BICARB 8.4% 50 ML SYR (1 MEQ/ML) IV ONE (12:37)
[2023-09-17] MEDS: CALCIUM GLUCONATE IN NACL 1 GM in SALINE 1 100ML.BAG IVPB ONE (12:44)
[2023-09-17 12:46] LABS: ALT 17 U/L (4-49); AST 20 U/L (17-59); African American GFR (CKD) >90 (>60 ml/min/1.73 sqM); Albumin 4.8 g/dL (3.5-5.0); Alkaline Phosphatase 153 U/L (38-126); Amylase 59 U/L (30-110); Anion Gap 33 mmol/L; Blood Urea Nitrogen 19 mg/dL (9-20); Calcium 9.8 mg/dL (8.4-10.2); Chloride 94 mmol/L (98-107); Lipase 68 U/L (23-300); Non-African American GFR(CKD) >90 (>60 ml/min/1.73 sqM); Potassium 5.2 mmol/L (3.5-5.1); Sodium 135 mmol/L (137-145); Total Bilirubin 0.9 mg/dL (0.2-1.3); Total Protein 7.4 g/dL (6.3-8.2)
[2023-09-17 12:48] LABS: VBG PH 7.45 (7.31-7.41)
[2023-09-17] MEDS: ALBUTEROL NEB (CONC) 2.5 MG/0.5 ML INHALATION ONE (12:52)
[2023-09-17 12:58] LABS: Carbon Dioxide 8 mmol/L (22-30); Glucose 584 mg/dL (74-99)
[2023-09-17] MEDS ORDERED: Potassium Replacement Protocol 1 EACH MISC MISCELLANE PRN (13:02)
[2023-09-17] MEDS ORDERED: Magnesium Replacement Protocol 1 EACH MISC MISCELLANE PRN (13:02)
[2023-09-17] MEDS ORDERED: DEXTROSE 50% SYRINGE 50 ML IVP PRN ×2 (13:02)
[2023-09-17] MEDS: INSULIN REGULAR BOLUS (FROM DRIP BAG) IV ONE (13:11)
[2023-09-17] MEDS: SODIUM CHLORIDE 0.9% 1,000 ML IV SCH (13:17)
[2023-09-17] MEDS: INSULIN REGULAR 100 UNIT in SODIUM CHLORIDE 0.9% 100 ML IV SCH (13:18)
[2023-09-17] MEDS ORDERED: NALOXONE 0.4 MG/ML 1 ML VIAL IV PRN (13:30)
[2023-09-17] MEDS ORDERED: ONDANSETRON 4 MG/2 ML VIAL IVP PRN (13:30)
[2023-09-17] MEDS ORDERED: ACETAMINOPHEN TAB 325 MG TAB PO PRN (13:30)
--- NOTE | 2023-09-17 13:32 | ED ---
General Adult HPI - General Chief complaint: Nausea/Vomiting/Diarrhea Stated complaint: Vomiting,diabetic issues Time Seen by Provider: 09/17/23 11:55 Source: patient, RN notes reviewed, old records reviewed Mode of arrival: ambulatory Limitations: no limitations - History of Present Illness Initial comments: Patient is a 28-year-old male who presents emergency department and suspected DKA. Is well-known to our department. He has a history of type 1 diabetes. Has had vomiting since last night. Has noticed elevated blood sugar. Presents for further evaluation. Denies chest pain, abdominal pain, shortness of breath. Denies any fevers or chills. Does endorse nausea. Presents for further evaluation. - Related Data Home Medications Medication Instructions Recorded Confirmed Ergocalciferol [Vitamin D2 (1250 1,250 mcg PO Q30D 04/29/23 09/17/23 Mcg = 44279 Iu)] Famotidine [Pepcid] 20 mg PO BID 04/29/23 09/17/23 Gabapentin 600 mg PO TID 04/29/23 09/17/23 Losartan Potassium 50 mg PO DAILY 04/29/23 09/17/23 Mirtazapine 7.5 mg PO HS 04/29/23 09/17/23 Insulin Glargine,Hum.rec.anlog 30 units SQ HS 09/07/23 09/17/23 [Insulin Glargine] Insulin Lispro 7 units SQ AC-TID 09/17/23 09/17/23 Allergies Allergy/AdvReac Type Severity Reaction Status Date / Time No Known Allergies Allergy Verified 09/17/23 13:10 Review of Systems ROS Statement: Those systems with pertinent positive or pertinent negative responses have been documented in the HPI. Review of Systems: CONST: Denies fever EYES: Denies blurry vision ENT: Denies nasal congestion C/V: Denies Chest pain RESP: Denies shortness of breath GI: Endorses nausea : Denies dysuria SKIN: Denies rash. MSK: Denies joint pain. NEURO: Denies headache ROS Other: All systems not noted in ROS Statement are negative. Past Medical History Past Medical History: Asthma, Diabetes Mellitus, Neurologic Disorder, Skin Disorder Additional Past Medical History / Comment(s): IDDM type I, neuropathy bilateral feet, DKA, eczema. History of Any Multi-Drug Resistant Organisms: None Reported Past Surgical History: Adenoidectomy Additional Past Surgical History / Comment(s): gastritis Past Anesthesia/Blood Transfusion Reactions: No Reported Reaction Past Psychological History: Anxiety, Depression Smoking Status: Vaper Past Alcohol Use History: None Reported Past Drug Use History: Marijuana - Past Family History Mother Family Medical History: CVA/TIA Additional Family Medical History / Comment(s): TIA Father Family Medical History: Hyperlipidemia, Hypertension Additional Family Medical History / Comment(s): . General Exam - General Exam Comments Initial Comments: General: Appears dehydrated. HEAD: Normal with no signs of head trauma. EYES: PERRLA, EOMI, conjunctiva normal, no discharge. ENT: Hearing grossly intact, normal oropharynx. Dry mucous membranes. RESPIRATORY: Increased respirations likely secondary to DKA C/V: Tachycardic with regular rhythm. S1 and S2 auscultated, no edema, peripheral pulses 2+ and intact throughout ABD: Abd is soft, nontender, nondistended EXT: Normal range of motion, no obvious deformity SKIN: No rashes or lesions observed on exposed skin. NEURO: Alert and oriented x 4. No focal deficits. Limitations: no limitations Course Vital Signs 09/17/23 09/17/23 09/17/23 11:40 12:18 12:54 Temperature 97.6 F Pulse Rate 140 H 123 H 118 H Respiratory 28 H 40 H 18 Rate Blood Pressure 114/79 136/89 O2 Sat by Pulse 100 100 Oximetry 09/17/23 13:02 Temperature Pulse Rate 118 H Respiratory 18 Rate Blood Pressure O2 Sat by Pulse Oximetry Medical Decision Making - Medical Decision Making Was pt. sent in by a medical professional or institution (, PA, PIN OR CLIP FASTENER, urgent care, hospital, or long term...) When possible be specific @ -No Did you speak to anyone other than the patient for history (EMS, parent, family, police, friend...)? What history was obtained from this source @ -No Did you review nursing and triage notes (agree or disagree)? Why? @ -I reviewed and agree with nursing and triage notes Were old charts reviewed (outside hosp., previous admission, EMS record, old EKG, old radiological studies, urgent care reports/EKG's, long term records)? Report findings @ -Old charts reviewed Differential Diagnosis (chest pain, altered mental status, abdominal pain women, abdominal pain men, vaginal bleeding, weakness, fever, dyspnea, syncope, headache, dizziness, GI bleed, back pain, seizure, CVA, palpatations, mental health, musculoskeletal)? @ -DKA, dehydration, electrolyte abnormality, hyperkalemia. This list is not all inclusive. EKG interpreted by me (3pts min.). @ -As above X-rays interpreted by me (1pt min.). @ -None done CT interpreted by me (1pt min.). @ -None done U/S interpreted by me (1pt. min.). @ -None done What testing was considered but not performed or refused? (CT, X-rays, U/S, labs)? Why? @ -None What meds were considered but not given or refused? Why? @ -None Did you discuss the management of the patient with other professionals (professionals i.e. , PA, PIN OR CLIP FASTENER, lab, RT, psych nurse, social media marketing analyst, mop handle assembler, teacher, industrial relations officer, case packer and sealer)? Give summary @ -Discussed with Dr. Valenzuela who accepted the admission. Was smoking cessation discussed for >3mins.? @ -No Was critical care preformed (if so, how long)? @ -Yes, 35 minutes. Were there social determinants of health that impacted care today? How? (Homelessness, low income, unemployed, alcoholism, drug addiction, transportation, low edu. Level, literacy, decrease access to med. care, shelter, rehab)? @ -No Was there de-escalation of care discussed even if they declined (Discuss DNR or withdrawal of care, Hospice)? DNR status @ -No What co-morbidities impacted this encounter? (DM, HTN, Smoking, COPD, CAD, Cancer, CVA, ARF, Chemo, Hep., AIDS, mental health diagnosis, sleep apnea, morbid obesity)? @ -Type 1 diabetes poorly controlled Was patient admitted / discharged? Hospital course, mention meds given and route, prescriptions, significant lab abnormalities, going to OR and other pertinent info. @ -Patient presents in suspected DKA. Initial EKG showed possible hyperkalemia and therefore patient was administered 2 L fluid bolus in addition to h yperkalemia cocktail. Vital signs remarkable for sinus tachycardia. Blood pressure within acceptable limits. Increased work of breathing likely secondary to DKA. Patient is in DKA. VBG is 7.45, pCO2 of 17, HCO3 of 11. Patient has an anion gap of 33 patient is hyperglycemic. Lactic acid is 4.5. Potassium is 5.2. Acetone is positive. Viral swabs negative. At this time, patient was placed on DKA protocol including insulin drip. Patient was in agreement this plan. Patient will be admitted to inpatient on a insulin drip to stepdown. Patient was in agreement this plan. I spoke with [facility] physician, Dr. Valenzuela who accepted the admission. Undiagnosed new problem with uncertain prognosis? @ -No Drug Therapy requiring intensive monitoring for toxicity (Heparin, Nitro, Insulin, Cardizem)? @ -No Were any procedures done? @ -No Diagnosis/symptom? @ -Diabetic ketoacidosis, dehydration Acute, or Chronic, or Acute on Chronic? @ -Acute Uncomplicated (without systemic symptoms) or Complicated (systemic symptoms)? @ -Complicated Side effects of treatment? @ -No Exacerbation, Progression, or Severe Exacerbation? @ -No Poses a threat to life or bodily function? How? (Chest pain, USA, ND, pneumonia, PE, COPD, DKA, ARF, appy, cholecystitis, CVA, Diverticulitis, Homicidal, Ruiz icidal, threat to staff... and all critical care pts) @ -Yes - Lab Data Result diagrams: 09/17/23 12:04 09/17/23 12:04 Lab Results 09/17/23 09/17/23 09/17/23 Range/Units 12:04 12:04 12:04 WBC 15.0 H (3.8-10.6) k/uL RBC 4.62 (4.30-5.90) m/uL Hgb 12.4 L (13.0-17.5) gm/dL Hct 41.2 (39.0-53.0) % MCV 89.3 (80.0-100.0) fL MCH 26.9 (25.0-35.0) pg MCHC 30.1 L (31.0-37.0) g/dL RDW 15.6 H (11.5-15.5) % Plt Count 630 H (150-450) k/uL MPV 7.8 Neutrophils % 76 % Lymphocytes % 18 % Monocytes % 3 % Eosinophils % 1 % Basophils % 0 % Neutrophils # 11.4 H (1.3-7.7) k/uL Lymphocytes # 2.8 (1.0-4.8) k/uL Monocytes # 0.5 (0-1.0) k/uL Eosinophils # 0.1 (0-0.7) k/uL Basophils # 0.1 (0-0.2) k/uL Hypochromasia Marked VBG pH (7.31-7.41) VBG pCO2 (37-51) mmHg VBG HCO3 (24-28) mmol/L Sodium 135 L (137-145) mmol/L Potassium 5.2 H (3.5-5.1) mmol/L Chloride 94 L (98-107) mmol/L Carbon Dioxide 8 L* (22-30) mmol/L Anion Gap 33 mmol/L BUN 19 (9-20) mg/dL Creatinine 0.69 (0.66-1.25) mg/dL Est GFR (CKD-EPI)AfAm >90 (>60 ml/min/1.73 sqM) Est GFR (CKD-EPI)NonAf >90 (>60 ml/min/1.73 sqM) Glucose 584 H* (74-99) mg/dL POC Glucose (mg/dL) (70-110) mg/dL POC Glu Tracer Bullet Section Supervisor ID Plasma Lactic Acid Len 4.5 H* (0.7-2.0) mmol/L Calcium 9.8 (8.4-10.2) mg/dL Total Bilirubin 0.9 (0.2-1.3) mg/dL AST 20 (17-59) U/L ALT 17 (4-49) U/L Alkaline Phosphatase 153 H (38-126) U/L Total Protein 7.4 (6.3-8.2) g/dL Albumin 4.8 (3.5-5.0) g/dL Amylase 59 (30-110) U/L Lipase 68 (23-300) U/L Acetone, Qual Positive (Negative) Influenza Type A (PCR) (Not Detectd) Influenza Type B (PCR) (Not Detectd) RSV (PCR) (Not Detectd) SARS-CoV-2 (PCR) (Not Detectd) 09/17/23 09/17/23 09/17/23 Range/Units 12:08 12:09 12:34 WBC (3.8-10.6) k/uL RBC (4.30-5.90) m/uL Hgb (13.0-17.5) gm/dL Hct (39.0-53.0) % MCV (80.0-100.0) fL MCH (25.0-35.0) pg MCHC (31.0-37.0) g/dL RDW (11.5-15.5) % Plt Count (150-450) k/uL MPV Neutrophils % % Lymphocytes % % Monocytes % % Eosinophils % % Basophils % % Neutrophils # (1.3-7.7) k/uL Lymphocytes # (1.0-4.8) k/uL Monocytes # (0-1.0) k/uL Eosinophils # (0-0.7) k/uL Basophils # (0-0.2) k/uL Hypochromasia VBG pH 7.45 H (7.31-7.41) VBG pCO2 17 L* (37-51) mmHg VBG HCO3 11 L (24-28) mmol/L Sodium (137-145) mmol/L Potassium (3.5-5.1) mmol/L Chloride (98-107) mmol/L Carbon Dioxide (22-30) mmol/L Anion Gap mmol/L BUN (9-20) mg/dL Creatinine (0.66-1.25) mg/dL Est GFR (CKD-EPI)AfAm (>60 ml/min/1.73 sqM) Est GFR (CKD-EPI)NonAf (>60 ml/min/1.73 sqM) Glucose (74-99) mg/dL POC Glucose (mg/dL) 493 H (70-110) mg/dL POC Glu Tracer Bullet Section Supervisor Kemar Boswell Plasma Lactic Acid Len (0.7-2.0) mmol/L Calcium (8.4-10.2) mg/dL Total Bilirubin (0.2-1.3) mg/dL AST (17-59) U/L ALT (4-49) U/L Alkaline Phosphatase (38-126) U/L Total Protein (6.3-8.2) g/dL Albumin (3.5-5.0) g/dL Amylase (30-110) U/L Lipase (23-300) U/L Acetone, Qual (Negative) Influenza Type A (PCR) Not Detected (Not Detectd) Influenza Type B (PCR) Not Detected (Not Detectd) RSV (PCR) Not Detected (Not Detectd) SARS-CoV-2 (PCR) Not Detected (Not Detectd) 09/17/23 Range/Units 13:56 WBC (3.8-10.6) k/uL RBC (4.30-5.90) m/uL Hgb (13.0-17.5) gm/dL Hct (39.0-53.0) % MCV (80.0-100.0) fL MCH (25.0-35.0) pg MCHC (31.0-37.0) g/dL RDW (11.5-15.5) % Plt Count (150-450) k/uL MPV Neutrophils % % Lymphocytes % % Monocytes % % Eosinophils % % Basophils % % Neutrophils # (1.3-7.7) k/uL Lymphocytes # (1.0-4.8) k/uL Monocytes # (0-1.0) k/uL Eosinophils # (0-0.7) k/uL Basophils # (0-0.2) k/uL Hypochromasia VBG pH (7.31-7.41) VBG pCO2 (37-51) mmHg VBG HCO3 (24-28) mmol/L Sodium (137-145) mmol/L Potassium (3.5-5.1) mmol/L Chloride (98-107) mmol/L Carbon Dioxide (22-30) mmol/L Anion Gap mmol/L BUN (9-20) mg/dL Creatinine (0.66-1.25) mg/dL Est GFR (CKD-EPI)AfAm (>60 ml/min/1.73 sqM) Est GFR (CKD-EPI)NonAf (>60 ml/min/1.73 sqM) Glucose (74-99) mg/dL POC Glucose (mg/dL) 415 H (70-110) mg/dL POC Glu Tracer Bullet Section Supervisor ID Chet [place] Plasma Lactic Acid Len (0.7-2.0) mmol/L Calcium (8.4-10.2) mg/dL Total Bilirubin (0.2-1.3) mg/dL AST (17-59) U/L ALT (4-49) U/L Alkaline Phosphatase (38-126) U/L Total Protein (6.3-8.2) g/dL Albumin (3.5-5.0) g/dL Amylase (30-110) U/L Lipase (23-300) U/L Acetone, Qual (Negative) Influenza Type A (PCR) (Not Detectd) Influenza Type B (PCR) (Not Detectd) RSV (PCR) (Not Detectd) SARS-CoV-2 (PCR) (Not Detectd) - EKG Data -: EKG Interpreted by Me EKG Comments: 12-lead Electrocardiogram Interpretation Note EKG was reviewed and interpreted by myself. 12-lead ECG performed at 1220 is in terpreted by me as revealing sinus tachycardia at a rate of 122 beats per minute. [place] is normal. MD intervals 184 ms, QRS durations 102 ms, QTc is 405 ms. Peak T waves suggestive of hyperkalemia which patient does have a history of.. There were no ST or T wave abnormalities to suggest myocardial ischemia or injury. R wave progression across the precordium was satisfactory. By my interpretation this EKG is non-diagnostic for acute ischemia. Critical Care Time Critical Care Time: Yes Total Critical Care Time: 35 Disposition Clinical Impression: DKA (diabetic ketoacidosis), Dehydration Disposition: ADMITTED IP TO THIS [facility] Condition: Serious Referrals: Brown Valenzuela MD [Primary Care Provider] - 1-2 days Time of Disposition: 13:30
[2023-09-17 13:57] LABS: Glucose,Whole Blood 415 mg/dL (70-110)
[2023-09-17 15:14] LABS: Glucose,Whole Blood 290 mg/dL (70-110)
[2023-09-17] MEDS: HEPARIN SODIUM,PORCINE 5,000 UNIT/ML 1 ML VIAL SQ SCH (15:35)
[2023-09-17] MEDS: D5-0.45% NACL WITH KCL 20MEQ/L 1,000 ML IV SCH (15:49)
[2023-09-17 16:04] LABS: Glucose,Whole Blood 239 mg/dL (70-110)
[2023-09-17 16:11] LABS: African American GFR (CKD) >90 (>60 ml/min/1.73 sqM); Anion Gap 16 mmol/L; Blood Urea Nitrogen 17 mg/dL (9-20); Carbon Dioxide 18 mmol/L (22-30); Chloride 106 mmol/L (98-107); Glucose 269 mg/dL (74-99); Non-African American GFR(CKD) >90 (>60 ml/min/1.73 sqM); Potassium 4.1 mmol/L (3.5-5.1); Sodium 140 mmol/L (137-145)
[2023-09-17 17:07] LABS: Glucose,Whole Blood 199 mg/dL (70-110)
[2023-09-17] MEDS ORDERED: INSULIN LISPRO (For Pump) 100 UNIT/ML VIAL SQ-PUMP SCH (17:30)
[2023-09-17 18:12] LABS: Glucose,Whole Blood 165 mg/dL (70-110)
[2023-09-17 19:18] LABS: Glucose,Whole Blood 122 mg/dL (70-110)
[2023-09-17 20:17] LABS: Glucose,Whole Blood 99 mg/dL (70-110)
[2023-09-17 20:18] LABS: African American GFR (CKD) >90 (>60 ml/min/1.73 sqM); Anion Gap 6 mmol/L; Blood Urea Nitrogen 17 mg/dL (9-20); Carbon Dioxide 23 mmol/L (22-30); Chloride 103 mmol/L (98-107); Glucose 114 mg/dL (74-99); Non-African American GFR(CKD) >90 (>60 ml/min/1.73 sqM); Potassium 4.1 mmol/L (3.5-5.1); Sodium 132 mmol/L (137-145)
[2023-09-17 20:48] LABS: Glucose,Whole Blood 143 mg/dL (70-110)
[2023-09-17] MEDS ORDERED: INSULIN DETEMIR (LEVEMIR) 100 UNIT/ML SYR SQ SCH (21:00)
[2023-09-17 21:23] LABS: Glucose,Whole Blood 147 mg/dL (70-110)
[2023-09-17 22:18] LABS: Glucose,Whole Blood 140 mg/dL (70-110)
[2023-09-17 22:58] LABS: Appearance,Urine Clear (Clear); Bilirubin,Urine Negative (Negative); Blood,Urine Negative (Negative); Color,Urine Colorless; Glucose,Urine (UA) 4+ (Negative); Leukocyte Esterase,Urine Negative (Negative); Nitrite,Urine Negative (Negative); Protein,Urine Negative (Negative); Specific Gravity,Urine 1.026 (1.001-1.035); Urobilinogen,Urine <2.0 mg/dL (<2.0)
[2023-09-17 23:08] LABS: Ketones,Urine 4+ (Negative)
[2023-09-17 23:17] LABS: Glucose,Whole Blood 147 mg/dL (70-110)
[2023-09-18 00:13] LABS: Glucose,Whole Blood 205 mg/dL (70-110)
[2023-09-18 01:14] LABS: Glucose,Whole Blood 254 mg/dL (70-110)
[2023-09-18 02:38] LABS: Glucose,Whole Blood 258 mg/dL (70-110)
[2023-09-18 03:38] LABS: Glucose,Whole Blood 227 mg/dL (70-110)
[2023-09-18 03:49] LABS: ALT 11 U/L (4-49); AST 21 U/L (17-59); African American GFR (CKD) >90 (>60 ml/min/1.73 sqM); Alkaline Phosphatase 83 U/L (38-126); Anion Gap 8 mmol/L; Blood Urea Nitrogen 15 mg/dL (9-20); Calcium 8.2 mg/dL (8.4-10.2); Carbon Dioxide 21 mmol/L (22-30); Chloride 100 mmol/L (98-107); Glucose 248 mg/dL (74-99); Non-African American GFR(CKD) >90 (>60 ml/min/1.73 sqM); Phosphorus 3.3 mg/dL (2.5-4.5); Potassium 4.5 mmol/L (3.5-5.1); Sodium 129 mmol/L (137-145); Total Bilirubin 0.5 mg/dL (0.2-1.3); Total Protein 5.3 g/dL (6.3-8.2)
[2023-09-18 04:23] LABS: Glucose,Whole Blood 235 mg/dL (70-110)
[2023-09-18 05:07] LABS: Glucose,Whole Blood 211 mg/dL (70-110)
[2023-09-18 06:08] LABS: Glucose,Whole Blood 194 mg/dL (70-110)
[2023-09-18 07:04] LABS: Glucose,Whole Blood 175 mg/dL (70-110)
[2023-09-18 08:09] LABS: Glucose,Whole Blood 168 mg/dL (70-110)
[2023-09-18 09:09] LABS: Glucose,Whole Blood 336 mg/dL (70-110)
[2023-09-18] MEDS: PANTOPRAZOLE 40 MG/10 ML VIAL IV SCH (10:04)
[2023-09-18 10:07] LABS: Glucose,Whole Blood 249 mg/dL (70-110)
[2023-09-18] MEDS: LOSARTAN 50 MG TAB PO SCH (10:07)
[2023-09-18 10:14] LABS: Basophils # (A) 0.1 k/uL (0-0.2); Basophils % (A) 1 %; Eosinophils # (A) 0.2 k/uL (0-0.7); Eosinophils % (A) 2 %; HCT 32.2 % (39.0-53.0); HGB 10.4 gm/dL (13.0-17.5); Hypochromasia Slight; Lymphocytes # (A) 2.4 k/uL (1.0-4.8); Lymphocytes % (A) 23 %; MCH 27.5 pg (25.0-35.0); MCHC 32.2 g/dL (31.0-37.0); MCV 85.7 fL (80.0-100.0); Mean Platelet Volume 6.8; Monocytes # (A) 0.4 k/uL (0-1.0); Monocytes % (A) 4 %; Neutrophils # (A) 7.4 k/uL (1.3-7.7); Neutrophils % (A) 71 %; Platelet Count 403 k/uL (150-450); RBC 3.76 m/uL (4.30-5.90); RDW 15.8 % (11.5-15.5); WBC 10.5 k/uL (3.8-10.6)
[2023-09-18 10:27] LABS: ALT 13 U/L (4-49); AST 15 U/L (17-59); African American GFR (CKD) >90 (>60 ml/min/1.73 sqM); Albumin 3.1 g/dL (3.5-5.0); Alkaline Phosphatase 91 U/L (38-126); Anion Gap 6 mmol/L; Blood Urea Nitrogen 12 mg/dL (9-20); Calcium 8.3 mg/dL (8.4-10.2); Carbon Dioxide 24 mmol/L (22-30); Chloride 99 mmol/L (98-107); Glucose 179 mg/dL (74-99); Non-African American GFR(CKD) >90 (>60 ml/min/1.73 sqM); Potassium 3.8 mmol/L (3.5-5.1); Sodium 129 mmol/L (137-145); Total Bilirubin 0.4 mg/dL (0.2-1.3); Total Protein 5.7 g/dL (6.3-8.2)
[2023-09-18 11:13] LABS: Glucose,Whole Blood 222 mg/dL (70-110)
[2023-09-18 13:11] LABS: Glucose,Whole Blood 253 mg/dL (70-110)
[2023-09-18 14:02] LABS: Glucose,Whole Blood 253 mg/dL (70-110)
[2023-09-18] MEDS ORDERED: DEXTROSE 50% SYRINGE 50 ML IVP PRN ×2 (14:58)
[2023-09-18 15:00] LABS: Glucose,Whole Blood 183 mg/dL (70-110)
[2023-09-18] MEDS: INSULIN DETEMIR (LEVEMIR) 100 UNIT/ML SYR SQ SCH (15:23)
[2023-09-18 15:29] VITALS: BMI 17.4
[2023-09-18 16:37] LABS: Glucose,Whole Blood 133 mg/dL (70-110)
[2023-09-18] MEDS: INSULIN ASPART (NovoLOG) 100 UNIT/ML VIAL SQ SCH ×2 (16:38→16:52)
[2023-09-18 20:12] LABS: Glucose,Whole Blood 162 mg/dL (70-110)
[2023-09-19 02:07] LABS: Glucose,Whole Blood 107 mg/dL (70-110)
--- NOTE | 2023-09-19 04:43 | HP ---
HISTORY AND PHYSICAL CHIEF COMPLAINT: DKA. HISTORY OF PRESENT ILLNESS: Another admission for this gentleman who was in and out of the hospital frequently. He came back in with elevated blood sugar and a widened anion gap, but not severe enough to be admitted to the ICU. REVIEW OF SYSTEMS: He is quite lethargic, but denies headaches, chest pain, abdominal pain, etc. He has been nauseated and vomiting. PHYSICAL EXAMINATION: VITAL SIGNS: Normal except for tachycardia. HEAD, EARS, EYES, NOSE, MOUTH, AND THROAT: Normal. He is dehydrated. CHEST: Clear. CARDIAC: Demonstrates sinus tachycardia. ABDOMEN: Flat, soft, and nontender with normal bowel sounds. EXTREMITIES: Normal. NEUROLOGICAL: Intact. IMPRESSION: He is admitted to the hospital with diagnosis of, 1. Diabetic ketoacidosis. 2. Depression. 3. Noncompliant. INDIVIDUAL PLAN: 1. Bed rest. 2. IV fluids. 3. DKA protocol. GRACE / ALDEN: [id number] /
--- NOTE | 2023-09-19 06:21 | PN ---
PROGRESS NOTE DATE OF SERVICE: 09/18/2023 CHIEF COMPLAINT: DKA. HISTORY OF PRESENT ILLNESS: This gentleman is a very lethargic. His gap is closing and will transition him over to his usual insulin management, probably send him home tomorrow. PHYSICAL EXAMINATION: GENERAL: He is stills somewhat lethargic. VITAL SIGNS: Normal. CHEST: Clear. CARDIAC: Exam is normal. IMPRESSION: 1. DKA. 2. Depression. PLAN: 1. Transition. 2. Basal bolus program. GRACE / TRAMN: [id number] /
[2023-09-19 06:27] LABS: Glucose,Whole Blood 78 mg/dL (70-110)
[2023-09-19 10:27] VITALS: TEMP 98.1
[2023-09-19 11:19] LABS: Glucose,Whole Blood 177 mg/dL (70-110)
[2023-09-19 13:29] VITALS: BP 146/107; PULSE 80; RESP 18
[2023-09-19 16:42] LABS: Glucose,Whole Blood 204 mg/dL (70-110)
--- NOTE | 2023-09-20 03:18 | DS ---
DISCHARGE SUMMARY CHIEF COMPLAINT: Diabetic ketoacidosis. HISTORY OF PRESENT ILLNESS AND PHYSICAL EXAMINATION: Details of this man's history and physical can be found in the initial workup. LABORATORY STUDIES: While he was in the hospital, he had laboratory studies, details of which can be found in the laboratory section of his chart. COURSE IN THE HOSPITAL: After admission, he was placed on bedrest, started on intravenous fluids and DKA protocol. His gap was closed. Sugars came down and he became more awake and alert. He is doing well and was eating and up and about and he will be discharged on on his regular home medications. He will follow up in the office in several days. FINAL DIAGNOSES: 1. Diabetic ketoacidosis. 2. Depression. 3. Dehydration. 4. Malnutrition. 5. Gastroparesis. 6. Diabetic peripheral neuropathy. OPERATIONS: None. CONSULTATION: None. He is improved. GRACE / ALDEN: [id number] /
== END 2023-09-19 17:19 | disposition home or self-care (01) | DRG 420 ==
LOC: EC 11:35 → 3SCARD 13:32
PROVIDERS: ADMIT Family Medicine; ATTEND Family Medicine
DX: E10.10 Type 1 diabetes mellitus with ketoacidosis without coma (principal); E10.42 Type 1 diabetes mellitus with diabetic polyneuropathy; K31.84 Gastroparesis; E86.0 Dehydration; E10.43 Type 1 diabetes mellitus with diabetic autonomic (poly)neuropathy; E46 Unspecified protein-calorie malnutrition; Z68.1 Body mass index [BMI] 19.9 or less, adult; F32.A Depression, unspecified; J45.909 Unspecified asthma, uncomplicated; Z79.4 Long term (current) use of insulin; Z28.310 Unvaccinated for COVID-19; E87.5 Hyperkalemia; F17.200 Nicotine dependence, unspecified, uncomplicated; L30.9 Dermatitis, unspecified; K29.70 Gastritis, unspecified, without bleeding; F41.9 Anxiety disorder, unspecified; Z91.199 Patient's noncompliance with other medical treatment and regimen due to unspecified reason; Z79.899 Other long term (current) drug therapy; Z71.3 Dietary counseling and surveillance; Z59.12 Inadequate housing utilities; Z59.819 Housing instability, housed unspecified
CPT/HCPCS: 36415; 80051; 80053; 81003; 82009; 82150; 82565; 82803; 82947; 83605; 83690; 84100; 84520; 85025; 87636; 93005; 94640; 96361; 96365; 96366; 96375; 99291

== ENCOUNTER 2023-09-20 20:23 | Inpatient (IN) | payer OTHER ==
[2023-09-20 20:38] LABS: Glucose,Whole Blood 408 mg/dL (70-110)
--- NOTE | 2023-09-20 20:38 | ED ---
Nausea/Vomiting/Diarrhea HPI - General Chief complaint: Nausea/Vomiting/Diarrhea Stated complaint: diabetic issues Time Seen by Provider: 09/20/23 20:27 Source: EMS, RN notes reviewed, old records reviewed Mode of arrival: EMS Limitations: no limitations - History of Present Illness Initial comments: This is a 28-year-old male to the ER for evaluation today. Patient [place] for evaluation of nausea vomiting pain generalized pain body pain headache vomiting and elevated blood sugar. Short of breath. Patient does not feel well off altered mental status MD complaint: nausea, vomiting, diarrhea, abdominal pain -: days(s) Description of Vomiting: watery Associated Abdominal Pain: Yes Radiation: none Severity: moderate, severe Severity scale (1-10): 9 Quality: cramping, stabbing, aching Consistency: constant Improves with: none Worsens with: none Associated Symptoms: loss of appetite, malaise, nausea/vomiting, weakness - Related Data Home Medications Medication Instructions Recorded Confirmed Ergocalciferol [Vitamin D2 (1250 1,250 mcg PO Q30D 04/29/23 09/24/23 Mcg = 69464 Iu)] Famotidine [Pepcid] 20 mg PO BID 04/29/23 09/24/23 Gabapentin 600 mg PO TID 04/29/23 09/24/23 Losartan Potassium 50 mg PO DAILY 04/29/23 09/24/23 Mirtazapine 7.5 mg PO HS 04/29/23 09/24/23 Insulin Glargine,Hum.rec.anlog 30 units SQ HS 09/07/23 09/24/23 [Insulin Glargine] Insulin Lispro 7 units SQ AC-TID 09/17/23 09/24/23 Previous Rx's Medication Instructions Recorded Atorvastatin [Lipitor] 20 mg PO HS #30 tab 09/26/23 Losartan [Cozaar] 25 mg PO DAILY #30 tab 09/26/23 Allergies Allergy/AdvReac Type Severity Reaction Status Date / Time No Known Allergies Allergy Verified 09/24/23 15:29 Review of Systems ROS Statement: Those systems with pertinent positive or pertinent negative responses have been documented in the HPI. ROS Other: All systems not noted in ROS Statement are negative. Past Medical History Past Medical History: Asthma, Diabetes Mellitus, Neurologic Disorder, Skin Disorder Additional Past Medical History / Comment(s): IDDM type I, neuropathy bilateral feet, DKA, eczema. History of Any Multi-Drug Resistant Organisms: None Reported Past Surgical History: Adenoidectomy Additional Past Surgical History / Comment(s): gastritis Past Anesthesia/Blood Transfusion Reactions: No Reported Reaction Past Psychological History: Anxiety, Depression Smoking Status: Current every day smoker Past Alcohol Use History: None Reported Past Drug Use History: Marijuana - Past Family History Mother Family Medical History: CVA/TIA Additional Family Medical History / Comment(s): TIA Father Family Medical History: Hyperlipidemia, Hypertension Additional Family Medical History / Comment(s): . General Exam Limitations: no limitations General appearance: alert, in no apparent distress Head exam: Present: atraumatic, normocephalic, normal inspection Eye exam: Present: normal appearance, PERRL, EOMI. Absent: scleral icterus, conjunctival injection, periorbital swelling ENT exam: Present: normal exam, mucous membranes moist Neck exam: Present: normal inspection. Absent: tenderness, meningismus, lymphadenopathy Respiratory exam: Present: normal lung sounds bilaterally. Absent: respiratory distress, wheezes, rales, rhonchi, stridor Cardiovascular Exam: Present: regular rate, normal rhythm, normal heart sounds. Absent: systolic murmur, diastolic murmur, rubs, gallop, clicks GI/Abdominal exam: Present: soft, normal bowel sounds. Absent: distended, tenderness, guarding, rebound, rigid Extremities exam: Present: normal inspection, full ROM, normal capillary refill. Absent: tenderness, pedal edema, joint swelling, calf tenderness Back exam: Present: normal inspection Neurological exam: Present: alert, oriented X3, CN II-XII intact Psychiatric exam: Present: normal affect, normal mood Skin exam: Present: warm, dry, intact, normal color. Absent: rash Course Vital Signs 09/20/23 09/20/23 09/20/23 20:29 21:00 21:30 Temperature 97.3 F L Pulse Rate 134 H 140 H 135 H Pulse Rate [ Pulse Oximetery ] Respiratory 14 20 22 Rate Blood Pressure 105/66 87/60 99/54 Blood Pressure [Right Arm] O2 Sat by Pulse 100 100 100 Oximetry 09/20/23 09/20/23 09/20/23 22:00 22:30 23:00 Temperature Pulse Rate 128 H 130 H 124 H Pulse Rate [ Pulse Oximetery ] Respiratory 18 16 24 Rate Blood Pressure 85/35 92/53 88/44 Blood Pressure [Right Arm] O2 Sat by Pulse 100 100 99 Oximetry 09/21/23 09/21/23 09/21/23 00:00 01:00 01:30 Temperature Pulse Rate 112 H 113 H 112 H Pulse Rate [ Pulse Oximetery ] Respiratory 14 20 14 Rate Blood Pressure 94/52 107/57 96/55 Blood Pressure [Right Arm] O2 Sat by Pulse 100 99 100 Oximetry 09/21/23 09/21/23 09/21/23 02:00 02:30 03:00 Temperature Pulse Rate 107 H 113 H 117 H Pulse Rate [ Pulse Oximetery ] Respiratory 19 14 10 L Rate Blood Pressure 89/53 91/53 91/53 Blood Pressure [Right Arm] O2 Sat by Pulse 99 100 Oximetry 09/21/23 09/21/23 09/21/23 05:45 09:00 10:00 Temperature 97.7 F Pulse Rate 118 H 102 H 107 H Pulse Rate [ Pulse Oximetery ] Respiratory 18 14 14 Rate Blood Pressure 113/75 134/90 103/71 Blood Pressure [Right Arm] O2 Sat by Pulse 99 98 97 Oximetry 09/21/23 09/21/23 09/21/23 11:18 12:15 14:00 Temperature Pulse Rate 109 H 116 H 91 Pulse Rate [ Pulse Oximetery ] Respiratory 16 18 16 Rate Blood Pressure 113/72 134/93 100/68 Blood Pressure [Right Arm] O2 Sat by Pulse 95 98 97 Oximetry 09/21/23 09/21/23 09/21/23 15:00 15:40 18:00 Temperature Pulse Rate 103 H 109 H 99 Pulse Rate [ Pulse Oximetery ] Respiratory 16 16 16 Rate Blood Pressure 102/66 126/81 109/78 Blood Pressure [Right Arm] O2 Sat by Pulse 96 100 Oximetry 09/21/23 09/22/23 09/22/23 21:14 01:35 04:03 Temperature 97.8 F Pulse Rate 112 H 92 Pulse Rate [ 88 Pulse Oximetery ] Respiratory 16 20 19 Rate Blood Pressure 106/79 101/65 Blood Pressure 110/71 [Right Arm] O2 Sat by Pulse 97 99 Oximetry 09/22/23 09/22/23 09/22/23 06:00 12:13 16:48 Temperature 98.3 F Pulse Rate 100 93 108 H Pulse Rate [ Pulse Oximetery ] Respiratory 17 18 18 Rate Blood Pressure 118/79 121/79 135/90 Blood Pressure [Right Arm] O2 Sat by Pulse 99 99 99 Oximetry 09/22/23 20:40 Temperature 98.4 F Pulse Rate 106 H Pulse Rate [ Pulse Oximetery ] Respiratory 18 Rate Blood Pressure 106/89 Blood Pressure [Right Arm] O2 Sat by Pulse 97 Oximetry - Reevaluation(s) Reevaluation #1: 09/20/23 20:37 Medical records reviewed Reevaluation #2: 09/20/23 22:11 Patient has no change in symptoms here in the ER Reevaluation #3: 09/20/23 22:11 Patient informed of results questions answered Reevaluation #4: Was pt. sent in by a medical professional or institution ([facility] Lucero, PARTY CHIEF, urgent care, hospital, or skilled nursing...) When possible be specific @ -no Did you speak to anyone other than the patient for history (EMS, parent, family, police, friend...)? What history was obtained from this source @ -no Did you review nursing and triage notes (agree or disagree)? Why? @ -agree Are old charts reviewed (outside hosp., previous admission, EMS record, old EKG, old radiological studies, urgent care reports/EKG's, skilled nursing records)? Report findings @ -yes Differential Diagnosis (chest pain, altered mental status, abdominal pain women, abdominal pain men, vaginal bleeding, weakness, fever, dyspnea, syncope, headache, dizziness, GI bleed, back pain, seizure, CVA, palpatations, mental health, musculoskeletal)? @ -prior EKG interpreted by me (3pts min.). @ -yes X-rays interpreted by me (1pt min.). @ -no CT interpreted by me (1pt min.). @ -no U/S interpreted by me (1pt. min.). @ -no What testing was considered but not performed or refused? (CT, X-rays, U/S, labs)? Why? @ -none What meds were considered but not given or refused? Why? @ -none Did you discuss the management of the patient with other professionals (alley ondorota i.e. , JAS, PARTY CHIEF, lab, RT, psych nurse, social media executive, siderographist, teacher, staff antisubmarine officer, pillowcase maker)? Give summary @ -no Was smoking cessation discussed for >3mins.? @ -no Was critical care preformed (if so, how long)? @ -yes31 Were there social determinants of health that impacted care today? How? (Homelessness, low income, unemployed, alcoholism, drug addiction, transportation, low edu. Level, literacy, decrease access to med. care, skilled nursing, rehab)? @ -none Was there de-escalation of care discussed even if they declined (Discuss DNR or withdrawal of care, Hospice)? DNR status @ -no What co-morbidities impacted this encounter? (DM, HTN, Smoking, COPD, CAD, Cancer, CVA, ARF, Chemo, Hep., AIDS, mental health diagnosis, sleep apnea, morbid obesity)? @ -none Was patient admitted / discharged? Hospital course, mention meds given and route, prescriptions, significant lab abnormalities, going to OR and other pertinent info. @ - 28 male to ER for evaluation of significant DKA. Patient is well-known to this hospital for recurrent evaluation of similar condition. Patient will be admitted for ICU for further evaluation and monitoring Admitted Undiagnosed new problem with uncertain prognosis? @ -no Drug Therapy requiring intensive monitoring for toxicity (Heparin, Nitro, Insul in, Cardizem)? @ -no Were any procedures done? @ -no Diagnosis/symptom? @ -DKA Acute, or Chronic, or Acute on Chronic? @ -Acute Uncomplicated (without systemic symptoms) or Complicated (systemic symptoms)? @ -Complicated Side effects of treatment? @ -no Exacerbation, Progression, or Severe Exacerbation? @ -exacerbation Poses a threat to life or bodily function? How? (Chest pain, USA, CA, pneumonia, PE, COPD, DKA, ARF, appy, cholecystitis, CVA, Diverticulitis, Homicidal, Suicidal, threat to staff... and all critical care pts) @ -yes with significant DKA Reevaluation #5: Differential Altered Mental Status: Hypoglycemia, DKA, hypercapnia, ETOH, overdose, CO poisoning, trauma, myxedema coma, HTN encephalopathy, infection, encephalitis, psychosis, intercranial hemorrhage, hepatic encephalopathy, meningitis, CVA, this is not meant to be an all-inclusive list - Consultations Consultation #1: Spoke with Dr. Valenzuela who agrees to admit this patient Medical Decision Making - Medical Decision Making 28 male to ER for evaluation of significant DKA. Patient is well-known to this hospital for recurrent evaluation of similar condition. Patient will be admitted for ICU for further evaluation and monitoring - Lab Data Result diagrams: 09/21/23 05:43 09/22/23 08:05 Lab Results 09/20/23 09/20/23 09/20/23 Range/Units 20:37 20:39 20:39 WBC 14.7 H (3.8-10.6) k/uL RBC 4.35 (4.30-5.90) m/uL Hgb 12.1 L (13.0-17.5) gm/dL Hct 40.8 (39.0-53.0) % MCV 93.7 D (80.0-100.0) fL MCH 27.9 (25.0-35.0) pg MCHC 29.7 L (31.0-37.0) g/dL RDW 15.6 H (11.5-15.5) % Plt Count 494 H (150-450) k/uL MPV 8.5 Neutrophils % 84 % Lymphocytes % 12 % Monocytes % 3 % Eosinophils % 0 % Basophils % 0 % Neutrophils # 12.3 H (1.3-7.7) k/uL Lymphocytes # 1.8 (1.0-4.8) k/uL Monocytes # 0.4 (0-1.0) k/uL Eosinophils # 0.0 (0-0.7) k/uL Basophils # 0.0 (0-0.2) k/uL Hypochromasia Marked PT 10.7 (10.0-12.5) sec INR 1.0 (<1.2) APTT 18.3 L (22.0-30.0) sec Sodium (137-145) mmol/L Potassium (3.5-5.1) mmol/L Chloride (98-107) mmol/L Carbon Dioxide (22-30) mmol/L Anion Gap mmol/L BUN (9-20) mg/dL Creatinine (0.66-1.25) mg/dL Est GFR (CKD-EPI)AfAm (>60 ml/min/1.73 sqM) Est GFR (CKD-EPI)NonAf (>60 ml/min/1.73 sqM) Glucose (74-99) mg/dL POC Glucose (mg/dL) 408 H (70-110) mg/dL POC Glu Resaw Tailer ID Eliezer Chavarria Lactic Ac Sepsis Rflx Plasma Lactic Acid Len (0.7-2.0) mmol/L Calcium (8.4-10.2) mg/dL Phosphorus (2.5-4.5) mg/dL Magnesium (1.6-2.3) mg/dL Total Bilirubin (0.2-1.3) mg/dL AST (17-59) U/L ALT (4-49) U/L Alkaline Phosphatase (38-126) U/L Troponin I (0.000-0.034) ng/mL NT-Pro-B Natriuret Pep pg/mL Total Protein (6.3-8.2) g/dL Albumin (3.5-5.0) g/dL Acetone, Qual (Negative) 09/20/23 09/20/23 09/20/23 Range/Units 20:39 20:39 20:39 WBC (3.8-10.6) k/uL RBC (4.30-5.90) m/uL Hgb (13.0-17.5) gm/dL Hct (39.0-53.0) % MCV (80.0-100.0) fL MCH (25.0-35.0) pg MCHC (31.0-37.0) g/dL RDW (11.5-15.5) % Plt Count (150-450) k/uL MPV Neutrophils % % Lymphocytes % % Monocytes % % Eosinophils % % Basophils % % Neutrophils # (1.3-7.7) k/uL Lymphocytes # (1.0-4.8) k/uL Monocytes # (0-1.0) k/uL Eosinophils # (0-0.7) k/uL Basophils # (0-0.2) k/uL Hypochromasia PT (10.0-12.5) sec INR (<1.2) APTT (22.0-30.0) sec Sodium 133 L (137-145) mmol/L Potassium 5.6 H (3.5-5.1) mmol/L Chloride 95 L (98-107) mmol/L Carbon Dioxide <5 L* (22-30) mmol/L Anion Gap mmol/L BUN 26 H (9-20) mg/dL Creatinine 1.09 (0.66-1.25) mg/dL Est GFR (CKD-EPI)AfAm >90 (>60 ml/min/1.73 sqM) Est GFR (CKD-EPI)NonAf >90 (>60 ml/min/1.73 sqM) Glucose 796 H* (74-99) mg/dL POC Glucose (mg/dL) (70-110) mg/dL POC Glu Resaw Tailer ID Lactic Ac Sepsis Rflx Plasma Lactic Acid Len 4.2 H* (0.7-2.0) mmol/L Calcium 9.3 (8.4-10.2) mg/dL Phosphorus 5.8 H (2.5-4.5) mg/dL Magnesium 2.2 (1.6-2.3) mg/dL Total Bilirubin 0.9 (0.2-1.3) mg/dL AST 17 (17-59) U/L ALT 21 (4-49) U/L Alkaline Phosphatase 131 H (38-126) U/L Troponin I <0.012 (0.000-0.034) ng/mL NT-Pro-B Natriuret Pep <20 pg/mL Total Protein 6.6 (6.3-8.2) g/dL Albumin 4.4 (3.5-5.0) g/dL Acetone, Qual Positive (Negative) 09/20/23 Range/Units 21:29 WBC (3.8-10.6) k/uL RBC (4.30-5.90) m/uL Hgb (13.0-17.5) gm/dL Hct (39.0-53.0) % MCV (80.0-100.0) fL MCH (25.0-35.0) pg MCHC (31.0-37.0) g/dL RDW (11.5-15.5) % Plt Count (150-450) k/uL MPV Neutrophils % % Lymphocytes % % Monocytes % % Eosinophils % % Basophils % % Neutrophils # (1.3-7.7) k/uL Lymphocytes # (1.0-4.8) k/uL Monocytes # (0-1.0) k/uL Eosinophils # (0-0.7) k/uL Basophils # (0-0.2) k/uL Hypochromasia PT (10.0-12.5) sec INR (<1.2) APTT (22.0-30.0) sec Sodium (137-145) mmol/L Potassium (3.5-5.1) mmol/L Chloride (98-107) mmol/L Carbon Dioxide (22-30) mmol/L Anion Gap mmol/L BUN (9-20) mg/dL Creatinine (0.66-1.25) mg/dL Est GFR (CKD-EPI)AfAm (>60 ml/min/1.73 sqM) Est GFR (CKD-EPI)NonAf (>60 ml/min/1.73 sqM) Glucose (74-99) mg/dL POC Glucose (mg/dL) (70-110) mg/dL POC Glu Resaw Tailer ID Lactic Ac Sepsis Rflx Y Plasma Lactic Acid Len (0.7-2.0) mmol/L Calcium (8.4-10.2) mg/dL Phosphorus (2.5-4.5) mg/dL Magnesium (1.6-2.3) mg/dL Total Bilirubin (0.2-1.3) mg/dL AST (17-59) U/L ALT (4-49) U/L Alkaline Phosphatase (38-126) U/L Troponin I (0.000-0.034) ng/mL NT-Pro-B Natriuret Pep pg/mL Total Protein (6.3-8.2) g/dL Albumin (3.5-5.0) g/dL Acetone, Qual (Negative) - EKG Data -: EKG Interpreted by Me (EKG is sinus tachycardia 135 CA 138 QRS 95 QTc 379) Critical Care Time Critical Care Time: Yes Total Critical Care Time: 31 Disposition Clinical Impression: Borderline personality disorder, Dehydration, IDDM (insulin dependent diabetes mellitus), Uncontrolled diabetes mellitus, DKA (diabetic ketoacidoses) Disposition: ADMITTED IP TO THIS HOSP Condition: Good Is patient prescribed a controlled substance at d/c from ED?: No Time of Disposition: 22:00
[2023-09-20 21:06] LABS: Basophils % (A) 0 %; Eosinophils % (A) 0 %; HCT 40.8 % (39.0-53.0); HGB 12.1 gm/dL (13.0-17.5); Hypochromasia Marked; Lymphocytes # (A) 1.8 k/uL (1.0-4.8); Lymphocytes % (A) 12 %; MCH 27.9 pg (25.0-35.0); MCHC 29.7 g/dL (31.0-37.0); Mean Platelet Volume 8.5; Monocytes # (A) 0.4 k/uL (0-1.0); Monocytes % (A) 3 %; Neutrophils # (A) 12.3 k/uL (1.3-7.7); Neutrophils % (A) 84 %; Platelet Count 494 k/uL (150-450); RBC 4.35 m/uL (4.30-5.90); RDW 15.6 % (11.5-15.5); WBC 14.7 k/uL (3.8-10.6)
[2023-09-20 21:07] LABS: ALT 21 U/L (4-49); AST 17 U/L (17-59); African American GFR (CKD) >90 (>60 ml/min/1.73 sqM); Albumin 4.4 g/dL (3.5-5.0); Alkaline Phosphatase 131 U/L (38-126); Blood Urea Nitrogen 26 mg/dL (9-20); Calcium 9.3 mg/dL (8.4-10.2); Chloride 95 mmol/L (98-107); MCV 93.7 fL (80.0-100.0); Magnesium 2.2 mg/dL (1.6-2.3); Non-African American GFR(CKD) >90 (>60 ml/min/1.73 sqM); Phosphorus 5.8 mg/dL (2.5-4.5); Potassium 5.6 mmol/L (3.5-5.1); Sodium 133 mmol/L (137-145); Total Bilirubin 0.9 mg/dL (0.2-1.3); Total Protein 6.6 g/dL (6.3-8.2)
[2023-09-20 21:16] LABS: NT-Pro-B-Type Natriuretic Pept <20 pg/mL
[2023-09-20 21:20] LABS: Prothrombin Time 10.7 sec (10.0-12.5)
[2023-09-20] MEDS: ONDANSETRON 4 MG/2 ML VIAL IVP STA (21:25)
[2023-09-20 21:30] LABS: Carbon Dioxide <5 mmol/L (22-30); Glucose 796 mg/dL (74-99)
[2023-09-20] MEDS: MORPHINE SULFATE 4 MG/ML SYRINGE IV STA (21:31)
[2023-09-20] MEDS: SODIUM CHLORIDE 0.9% 1,000 ML IV STA ×2 (21:32)
[2023-09-20] MEDS: SODIUM CHLORIDE 0.9% 500 ML 500 ML IV STA (21:32)
[2023-09-20 21:40] LABS: Partial Thromboplastin Time 18.3 sec (22.0-30.0)
[2023-09-20] MEDS ORDERED: NALOXONE 0.4 MG/ML 1 ML VIAL IV PRN (22:06)
[2023-09-20] MEDS ORDERED: LORazepam 2 MG/ML INJ IV PRN (22:09)
[2023-09-20] MEDS ORDERED: MORPHINE SULFATE 4 MG/ML SYRINGE IV PRN (22:09)
[2023-09-20 22:17] LABS: Glucose,Whole Blood >600 mg/dL (70-110)
[2023-09-20] MEDS: INSULIN REGULAR 100 UNIT in SODIUM CHLORIDE 0.9% 100 ML IV SCH (22:27)
[2023-09-20] MEDS: SODIUM CHLORIDE 0.9% 1,000 ML IV ONE (22:35)
[2023-09-20] MEDS: INSULIN REGULAR BOLUS (FROM DRIP BAG) IV ONE (22:35)
[2023-09-20] MEDS: D5-0.45% NACL WITH KCL 20MEQ/L 1,000 ML IV SCH (22:36)
[2023-09-20] MEDS: SODIUM CHLORIDE 0.9% 1,000 ML IV SCH (22:36)
[2023-09-20 23:52] LABS: Glucose,Whole Blood 522 mg/dL (70-110)
[2023-09-21 00:50] LABS: Glucose,Whole Blood 474 mg/dL (70-110)
[2023-09-21 01:32] LABS: African American GFR (CKD) >90 (>60 ml/min/1.73 sqM); Anion Gap 23 mmol/L; Blood Urea Nitrogen 27 mg/dL (9-20); Chloride 109 mmol/L (98-107); Glucose 421 mg/dL (74-99); Non-African American GFR(CKD) >90 (>60 ml/min/1.73 sqM); Potassium 4.8 mmol/L (3.5-5.1); Sodium 140 mmol/L (137-145)
[2023-09-21 01:35] LABS: Appearance,Urine Clear (Clear); Bilirubin,Urine Negative (Negative); Blood,Urine Negative (Negative); Color,Urine Colorless; Glucose,Urine (UA) 4+ (Negative); Leukocyte Esterase,Urine Negative (Negative); Nitrite,Urine Negative (Negative); Protein,Urine Negative (Negative); Specific Gravity,Urine 1.023 (1.001-1.035); Urobilinogen,Urine <2.0 mg/dL (<2.0)
[2023-09-21 01:36] LABS: Carbon Dioxide 8 mmol/L (22-30)
[2023-09-21 01:54] LABS: Glucose,Whole Blood 331 mg/dL (70-110)
[2023-09-21 02:02] LABS: Ketones,Urine 4+ (Negative)
[2023-09-21 02:47] LABS: Glucose,Whole Blood 241 mg/dL (70-110)
[2023-09-21] MEDS: D5-0.45% NACL WITH KCL 20MEQ/L 1,000 ML IV SCH (02:59)
[2023-09-21 03:51] LABS: Glucose,Whole Blood 225 mg/dL (70-110)
[2023-09-21 04:55] LABS: Glucose,Whole Blood 197 mg/dL (70-110)
[2023-09-21 05:43] LABS: Glucose,Whole Blood 179 mg/dL (70-110)
[2023-09-21 06:02] LABS: Basophils # (A) 0.1 k/uL (0-0.2); Basophils % (A) 0 %; Eosinophils # (A) 0.1 k/uL (0-0.7); Eosinophils % (A) 1 %; HCT 33.6 % (39.0-53.0); HGB 10.5 gm/dL (13.0-17.5); Hypochromasia Slight; Lymphocytes # (A) 3.4 k/uL (1.0-4.8); Lymphocytes % (A) 14 %; MCH 26.8 pg (25.0-35.0); MCHC 31.2 g/dL (31.0-37.0); Mean Platelet Volume 6.8; Monocytes # (A) 1.1 k/uL (0-1.0); Monocytes % (A) 4 %; Neutrophils # (A) 20.2 k/uL (1.3-7.7); Neutrophils % (A) 80 %; Platelet Count 436 k/uL (150-450); RBC 3.91 m/uL (4.30-5.90); WBC 25.1 k/uL (3.8-10.6)
[2023-09-21 06:14] LABS: ALT 17 U/L (4-49); AST 15 U/L (17-59); African American GFR (CKD) >90 (>60 ml/min/1.73 sqM); Albumin 3.6 g/dL (3.5-5.0); Alkaline Phosphatase 94 U/L (38-126); Anion Gap 10 mmol/L; Blood Urea Nitrogen 25 mg/dL (9-20); Calcium 8.5 mg/dL (8.4-10.2); Carbon Dioxide 20 mmol/L (22-30); Chloride 111 mmol/L (98-107); Glucose 168 mg/dL (74-99); Magnesium 2.2 mg/dL (1.6-2.3); Non-African American GFR(CKD) >90 (>60 ml/min/1.73 sqM); Phosphorus 3.2 mg/dL (2.5-4.5); Potassium 4.8 mmol/L (3.5-5.1); Sodium 141 mmol/L (137-145); Total Bilirubin 0.3 mg/dL (0.2-1.3); Total Protein 6.1 g/dL (6.3-8.2)
[2023-09-21 06:18] LABS: MCV 85.9 fL (80.0-100.0)
[2023-09-21 07:30] LABS: Glucose,Whole Blood 132 mg/dL (70-110)
[2023-09-21 08:30] LABS: Glucose,Whole Blood 123 mg/dL (70-110)
[2023-09-21 09:57] LABS: Glucose,Whole Blood 119 mg/dL (70-110)
[2023-09-21 11:18] LABS: Glucose,Whole Blood 165 mg/dL (70-110)
[2023-09-21 12:15] LABS: Glucose,Whole Blood 235 mg/dL (70-110)
[2023-09-21] MEDS: INSULIN LISPRO (For Pump) 100 UNIT/ML VIAL SQ-PUMP SCH (12:18)
[2023-09-21 13:20] LABS: Glucose,Whole Blood 247 mg/dL (70-110)
--- NOTE | 2023-09-21 14:02 | P.CNPUL ---
History of Present Illness Consult date: 09/21/23 Requesting physician: Brown Valenzuela Reason for consult: other (Critical care management) Chief complaint: Nausea, vomiting, abdominal pain History of present illness: This is a 28-year-old male patient with a known history of type 1 diabetes mellitus and medical noncompliance. He has had multiple, multiple admissions to the hospital for DKA. He presented here to the emergency room again today after just being discharged home the day before. He presented with nausea, vomiting and abdominal pain. Labs with a white count of 14.7. Hemoglobin 12.1. Platelets 494. Sodium 133. Potassium 5.6. Bicarb less than 5. Anion gap unable to be calculated, blood glucose of 796. Acetone positive. 4+ glucose and 4+ ketones in the urinalysis. He was initiated on the DKA protocol. He is seen today in consultation in the emergency department. He is currently awake and alert. He is having some ongoing issues with nausea, vomiting and abdominal discomfort. His white count is now 25.1. Hemoglobin 10.5. Platelets 436. Sodium 141. Potassium 4.8. Bicarb of 20 and an anion gap of 10. BUN 25. Creatinine 0.73. Glucose 168. He is currently on D5 and a half normal saline with 20 KCl at 150 MLS per hour. Insulin drip is at 0.01 units/kg/h. He received 3 liters of fluid resuscitation. He is on room air. He is afebrile. Hemodynamically stable. Review of Systems REVIEW OF SYSTEMS: CONSTITUTIONAL: Denies any recent significant weight loss or weight gain. EYES: Denies change in vision. EARS, NOSE, MOUTH, THROAT: Denies headaches, denies sore throat. CARDIOVASCULAR: Denies chest pain, palpitations or syncopal episodes. RESPIRATORY: Denies shortness of breath, cough, congestion or hemoptysis. GASTROINTESTINAL: Positive for nausea, vomiting and abdominal pain GENITOURINARY: Denies hematuria, denies infections. MUSKULOSKELETAL: Denies pain, denies swelling. INTEGUMENTARY: Denies rash, denies eczema. NEUROLOGICAL: Denies recent memory loss, no recent seizure activity. PSYCHIATRIC: Denies anxiety, denies depression. HEMATOLOGIC/LYMPHATIC: Denies anemia, denies enlarged lymph nodes. Past Medical History Past Medical History: Asthma, Diabetes Mellitus, Neurologic Disorder, Skin Disorder Additional Past Medical History / Comment(s): IDDM type I, neuropathy bilateral feet, DKA, eczema. History of Any Multi-Drug Resistant Organisms: None Reported Past Surgical History: Adenoidectomy Additional Past Surgical History / Comment(s): gastritis Past Anesthesia/Blood Transfusion Reactions: No Reported Reaction Past Psychological History: Anxiety, Depression Smoking Status: Current every day smoker Past Alcohol Use History: None Reported Past Drug Use History: Marijuana - Past Family History Mother Family Medical History: CVA/TIA Additional Family Medical History / Comment(s): TIA Father Family Medical History: Hyperlipidemia, Hypertension Additional Family Medical History / Comment(s): . Medications and Allergies Home Medications Medication Instructions Recorded Confirmed Type Ergocalciferol [Vitamin D2 (1250 1,250 mcg PO Q30D 04/29/23 09/21/23 History Mcg = 31429 Iu)] Famotidine [Pepcid] 20 mg PO BID 04/29/23 09/21/23 History Gabapentin 600 mg PO TID 04/29/23 09/21/23 History Losartan Potassium 50 mg PO DAILY 04/29/23 09/21/23 History Mirtazapine 7.5 mg PO HS 04/29/23 09/21/23 History Insulin Glargine,Hum.rec.anlog 30 units SQ HS 09/07/23 09/21/23 History [Insulin Glargine] Insulin Lispro 7 units SQ AC-TID 09/17/23 09/21/23 History Allergies Allergy/AdvReac Type Severity Reaction Status Date / Time No Known Allergies Allergy Verified 09/21/23 09:19 Physical Exam Vitals: Vital Signs Temp Pulse Resp BP Pulse Ox 09/21/23 12:15 116 H 18 134/93 98 09/21/23 11:18 109 H 16 113/72 95 09/21/23 10:00 107 H 14 103/71 97 09/21/23 09:00 102 H 14 134/90 98 09/21/23 05:45 97.7 F 118 H 18 113/75 99 09/21/23 03:00 117 H 10 L 91/53 09/21/23 02:30 113 H 14 91/53 100 09/21/23 02:00 107 H 19 89/53 99 09/21/23 01:30 112 H 14 96/55 100 09/21/23 01:00 113 H 20 107/57 99 09/21/23 00:00 112 H 14 94/52 100 09/20/23 23:00 124 H 24 88/44 99 09/20/23 22:30 130 H 16 92/53 100 09/20/23 22:00 128 H 18 85/35 100 09/20/23 21:30 135 H 22 99/54 100 09/20/23 21:00 140 H 20 87/60 100 09/20/23 20:29 97.3 F L 134 H 14 105/66 100 Intake and Output 09/20/23 09/21/23 09/21/23 22:59 06:59 14:59 Intake Total 25.711 33.627 Balance 25.711 33.627 Intake: Intake, IV Titration 25.711 33.627 Amount Insulin Regular 100 unit 25.711 33.627 In Sodium Chloride 0.9% 100 ml @ 0.1 UNITS/KG/HR 5.956 mls/hr IV .[id number] [facility] Rx#:[id number] Other: Weight 58.967 kg GENERAL EXAM: Alert, thin 28-year-old male patient, on room air, fairly comfortable in no apparent distress. HEAD: Normocephalic. EYES: Normal reaction of pupils, equal size. NOSE: Clear with pink turbinates. THROAT: No erythema or exudates. NECK: No masses, no JVD. CHEST: No chest wall deformity. LUNGS: Equal air entry with no crackles, wheeze, rhonchi or dullness. CVS: S1 and S2 normal with no audible murmur, regular rhythm. ABDOMEN: No hepatosplenomegaly, normal bowel sounds, no guarding or rigidity. SPINE: No scoliosis or deformity SKIN: No rashes CENTRAL NERVOUS SYSTEM: No focal deficits, tone is normal in all 4 extremities. EXTREMITIES: There is no peripheral edema. No clubbing, no cyanosis. Peripheral pulses are intact. Results - Laboratory Findings CBC and BMP: 09/21/23 05:43 09/21/23 05:43 PT/INR, D-dimer PT 10.7 sec (10.0-12.5) 09/20/23 20:39 INR 1.0 (<1.2) 09/20/23 20:39 Abnormal lab findings: Abnormal Labs 09/20/23 09/20/23 09/20/23 20:37 20:39 20:39 WBC 14.7 H RBC Hgb 12.1 L Hct MCHC 29.7 L RDW 15.6 H Plt Count 494 H Neutrophils # 12.3 H Monocytes # APTT 18.3 L Sodium Potassium Chloride Carbon Dioxide BUN Glucose POC Glucose (mg/dL) 408 H Plasma Lactic Acid Len Phosphorus AST Alkaline Phosphatase Total Protein Urine Glucose (UA) Urine Ketones 09/20/23 09/20/23 09/20/23 20:39 20:39 22:16 WBC RBC Hgb Hct MCHC RDW Plt Count Neutrophils # Monocytes # APTT Sodium 133 L Potassium 5.6 H Chloride 95 L Carbon Dioxide <5 L* BUN 26 H Glucose 796 H* POC Glucose (mg/dL) >600 H Plasma Lactic Acid Len 4.2 H* Phosphorus 5.8 H AST Alkaline Phosphatase 131 H Total Protein Urine Glucose (UA) Urine Ketones 09/20/23 09/21/23 09/21/23 23:50 00:46 00:46 WBC RBC Hgb Hct MCHC RDW Plt Count Neutrophils # Monocytes # APTT Sodium Potassium Chloride Carbon Dioxide BUN Glucose POC Glucose (mg/dL) 522 H 474 H Plasma Lactic Acid Len Phosphorus AST Alkaline Phosphatase Total Protein Urine Glucose (UA) 4+ H Urine Ketones 4+ H 09/21/23 09/21/23 09/21/23 00:59 00:59 01:52 WBC RBC Hgb Hct MCHC RDW Plt Count Neutrophils # Monocytes # APTT Sodium Potassium Chloride 109 H Carbon Dioxide 8 L* BUN 27 H Glucose 421 H POC Glucose (mg/dL) 331 H Plasma Lactic Acid Len Phosphorus 4.6 H AST Alkaline Phosphatase Total Protein Urine Glucose (UA) Urine Ketones 09/21/23 09/21/23 09/21/23 02:45 03:48 04:53 WBC RBC Hgb Hct MCHC RDW Plt Count Neutrophils # Monocytes # APTT Sodium Potassium Chloride Carbon Dioxide BUN Glucose POC Glucose (mg/dL) 241 H 225 H 197 H Plasma Lactic Acid Len Phosphorus AST Alkaline Phosphatase Total Protein Urine Glucose (UA) Urine Ketones 09/21/23 09/21/23 09/21/23 05:41 05:43 05:43 WBC 25.1 H RBC 3.91 L Hgb 10.5 L Hct 33.6 L MCHC RDW 16.0 H Plt Count Neutrophils # 20.2 H Monocytes # 1.1 H APTT Sodium Potassium Chloride 111 H Carbon Dioxide 20 L BUN 25 H Glucose 168 H POC Glucose (mg/dL) 179 H Plasma Lactic Acid Len Phosphorus AST 15 L Alkaline Phosphatase Total Protein 6.1 L Urine Glucose (UA) Urine Ketones 09/21/23 09/21/23 09/21/23 07:29 08:28 09:55 WBC RBC Hgb Hct MCHC RDW Plt Count Neutrophils # Monocytes # APTT Sodium Potassium Chloride Carbon Dioxide BUN Glucose POC Glucose (mg/dL) 132 H 123 H 119 H Plasma Lactic Acid Len Phosphorus AST Alkaline Phosphatase Total Protein Urine Glucose (UA) Urine Ketones 09/21/23 09/21/23 09/21/23 11:16 12:14 13:18 WBC RBC Hgb Hct MCHC RDW Plt Count Neutrophils # Monocytes # APTT Sodium Potassium Chloride Carbon Dioxide BUN Glucose POC Glucose (mg/dL) 165 H 235 H 247 H Plasma Lactic Acid Len Phosphorus AST Alkaline Phosphatase Total Protein Urine Glucose (UA) Urine Ketones Assessment and Plan Assessment: Acute diabetic ketoacidosis, likely secondary to medication noncompliance. Patient has had numerous episodes of DKA, recently discharged on 09/19/2023 for the same, he is being treated based on the DKA protocol Severe anion gap metabolic acidosis, secondary to above Dehydration can [place] to nausea and vomiting Type 1 diabetes mellitus, with poor medication compliance. Acute leukocytosis, likely reactive to DKA Diabetic neuropathy History of major depression Chronic marijuana use Chronic ongoing nicotine dependence Plan: The patient was seen and evaluated Labs and medications reviewed Continue with the DKA protocol Again educated regarding the importance of medication compliance Will downgrade from an ICU admission to the regular medical floor We will continue to follow and make further recommendations based on his clinical status I have personally seen and examined the patient, performed the documentation and the assessment and plan as written. Number of minutes spent on the visit: 20.
[2023-09-21 15:37] LABS: Glucose,Whole Blood 277 mg/dL (70-110)
[2023-09-21 16:06] LABS: Glucose,Whole Blood 314 mg/dL (70-110)
[2023-09-21 17:35] LABS: Glucose,Whole Blood 274 mg/dL (70-110)
[2023-09-21 18:36] LABS: Glucose,Whole Blood 229 mg/dL (70-110)
[2023-09-21 19:34] LABS: Glucose,Whole Blood 210 mg/dL (70-110)
[2023-09-21 20:34] LABS: Glucose,Whole Blood 231 mg/dL (70-110)
[2023-09-21 20:49] LABS: African American GFR (CKD) >90 (>60 ml/min/1.73 sqM); Anion Gap 13 mmol/L; Blood Urea Nitrogen 15 mg/dL (9-20); Calcium 8.7 mg/dL (8.4-10.2); Carbon Dioxide 16 mmol/L (22-30); Chloride 100 mmol/L (98-107); Glucose 189 mg/dL (74-99); Non-African American GFR(CKD) >90 (>60 ml/min/1.73 sqM); Potassium 4.6 mmol/L (3.5-5.1); Sodium 129 mmol/L (137-145)
--- NOTE | 2023-09-21 21:38 | HP ---
HISTORY AND PHYSICAL CHIEF COMPLAINT: DKA. HISTORY OF PRESENT ILLNESS AND PHYSICAL EXAMINATION: Details of this man's history are unchanged from usual. He goes home and does not take his insulin. He was just discharged yesterday. REVIEW OF SYSTEMS: He is very lethargic. PHYSICAL EXAMINATION: GENERAL: He is pale. He is dehydrated. HEAD, EARS, EYES, NOSE, MOUTH, AND THROAT: Normal. CHEST: Clear. CARDIAC: Normal. ABDOMEN: Flat, soft, and nontender. EXTREMITIES: Normal. IMPRESSION: DKA. PLAN: DKA protocol with rehydration. MMODL / IJN: [id number] /
[2023-09-21 21:49] LABS: Glucose,Whole Blood 227 mg/dL (70-110)
[2023-09-21] MEDS: INSULIN DETEMIR (LEVEMIR) 100 UNIT/ML SYR SQ SCH (21:58)
[2023-09-21 22:37] LABS: Glucose,Whole Blood 207 mg/dL (70-110)
[2023-09-21 23:41] LABS: Glucose,Whole Blood 189 mg/dL (70-110)
[2023-09-22 00:29] LABS: Glucose,Whole Blood 172 mg/dL (70-110)
[2023-09-22 01:42] LABS: Glucose,Whole Blood 169 mg/dL (70-110)
[2023-09-22 02:36] LABS: Glucose,Whole Blood 145 mg/dL (70-110)
[2023-09-22 03:46] LABS: ALT 16 U/L (4-49); AST 18 U/L (17-59); African American GFR (CKD) >90 (>60 ml/min/1.73 sqM); Albumin 3.4 g/dL (3.5-5.0); Alkaline Phosphatase 83 U/L (38-126); Anion Gap 8 mmol/L; Blood Urea Nitrogen 9 mg/dL (9-20); Calcium 8.8 mg/dL (8.4-10.2); Carbon Dioxide 22 mmol/L (22-30); Chloride 103 mmol/L (98-107); Glucose 122 mg/dL (74-99); Magnesium 1.7 mg/dL (1.6-2.3); Non-African American GFR(CKD) >90 (>60 ml/min/1.73 sqM); Phosphorus 2.6 mg/dL (2.5-4.5); Potassium 3.8 mmol/L (3.5-5.1); Sodium 133 mmol/L (137-145); Total Bilirubin 0.4 mg/dL (0.2-1.3); Total Protein 5.8 g/dL (6.3-8.2)
[2023-09-22 04:04] LABS: Glucose,Whole Blood 116 mg/dL (70-110)
[2023-09-22 05:41] LABS: Glucose,Whole Blood 162 mg/dL (70-110)
[2023-09-22 06:31] LABS: Glucose,Whole Blood 148 mg/dL (70-110)
[2023-09-22 08:58] LABS: Glucose,Whole Blood 246 mg/dL (70-110)
[2023-09-22] MEDS: INSULIN ASPART (NovoLOG) 100 UNIT/ML VIAL SQ SCH ×2 (09:00→17:29)
[2023-09-22 09:03] LABS: African American GFR (CKD) >90 (>60 ml/min/1.73 sqM); Anion Gap 10 mmol/L; Blood Urea Nitrogen 7 mg/dL (9-20); Carbon Dioxide 19 mmol/L (22-30); Chloride 103 mmol/L (98-107); Non-African American GFR(CKD) >90 (>60 ml/min/1.73 sqM); Potassium 4.7 mmol/L (3.5-5.1); Sodium 132 mmol/L (137-145)
--- NOTE | 2023-09-22 11:05 | PN ---
PROGRESS NOTE DATE OF SERVICE: 09/21/2023 In the emergency room. CHIEF COMPLAINT: DKA. HISTORY OF PRESENT ILLNESS: This gentleman's condition is unchanged. He is a little bit more alert. Numbers are improving. PHYSICAL EXAMINATION: CHEST: Clear. CARDIAC: Normal. IMPRESSION: DKA. PLAN: Continue with rehydration and DKA protocol. MMODL / TRAMN: [id number] /
[2023-09-22 11:34] LABS: Glucose,Whole Blood 269 mg/dL (70-110)
[2023-09-22 16:29] LABS: Glucose,Whole Blood 393 mg/dL (70-110)
--- NOTE | 2023-09-22 17:03 | P.PN ---
Subjective Progress Note Date: 09/22/23 This is a 28-year-old male patient with a known history of type 1 diabetes jagdeep itus and medical noncompliance. He has had multiple, multiple admissions to the hospital for DKA. He presented here to the emergency room again today after just being discharged home the day before. He presented with nausea, vomiting and abdominal pain. Labs with a white count of 14.7. Hemoglobin 12.1. Platelets 494. Sodium 133. Potassium 5.6. Bicarb less than 5. Anion gap unable to be calculated, blood glucose of 796. Acetone positive. 4+ glucose and 4+ ketones in the urinalysis. He was initiated on the DKA protocol. He is seen today in consultation in the emergency department. He is currently awake and alert. He is having some ongoing issues with nausea, vomiting and abdominal discomfort. His white count is now 25.1. Hemoglobin 10.5. Platelets 436. Sodium 141. Potassium 4.8. Bicarb of 20 and an anion gap of 10. BUN 25. Creatinine 0.73. Glucose 168. He is currently on D5 and a half normal saline with 20 KCl at 150 MLS per hour. Insulin drip is at 0.01 units/kg/h. He received 3 liters of fluid resuscitation. He is on room air. He is afebrile. Hemodynamically stable. On today's evaluation on 09/22/2023, patient is being seen for a follow-up. The patient is doing well. No specific complaints. The patient has been transitioned to long-acting insulin. Awake and alert and communicating. Hemodynamically stable. Discharge planning him progress. The patient is on Levemir insulin in addition to sliding scale insulin coverage. He is supposed to take also 7 units with meals. Labs from today shows a BUN of 7 with a creatinine of 0.5 and a serum bicarb of 19 with anion gap of 10. Most recent blood sugar is 269. Objective - Vital Signs Vital signs: Vital Signs Temp 97.8 F 09/21/23 21:14 Pulse 100 09/22/23 06:00 Resp 17 09/22/23 06:00 BP 118/79 09/22/23 06:00 Pulse Ox 99 09/22/23 06:00 FiO2 Intake & Output 09/21/23 09/22/23 09/22/23 18:59 06:59 18:59 Intake Total 41.244 28.514 Output Total 600 Balance 41.244 -571.486 Intake: Intake, IV Titration 41.244 28.514 Amount Insulin Regular 100 unit 41.244 28.514 In Sodium Chloride 0.9% 100 ml @ 0.1 UNITS/KG/HR 5.956 mls/hr IV .[id number] [facility] Rx#:[id number] Output: Urine 600 - Exam GENERAL EXAM: Alert, thin 28-year-old male patient, on room air, fairly comfortable in no apparent distress. HEAD: Normocephalic. EYES: Normal reaction of pupils, equal size. NOSE: Clear with pink turbinates. THROAT: No erythema or exudates. NECK: No masses, no JVD. CHEST: No chest wall deformity. LUNGS: Equal air entry with no crackles, wheeze, rhonchi or dullness. CVS: S1 and S2 normal with no audible murmur, regular rhythm. ABDOMEN: No hepatosplenomegaly, normal bowel sounds, no guarding or rigidity. SPINE: No scoliosis or deformity SKIN: No rashes CENTRAL NERVOUS SYSTEM: No focal deficits, tone is normal in all 4 extremities. EXTREMITIES: There is no peripheral edema. No clubbing, no cyanosis. Peripheral pulses are intact. - Labs CBC & Chem 7: 09/21/23 05:43 09/22/23 08:05 Labs: Abnormal Lab Results - Last 24 Hours (Table) 09/21/23 09/21/23 09/21/23 Range/Units 11:16 12:14 13:18 Sodium (137-145) mmol/L Carbon Dioxide (22-30) mmol/L BUN (9-20) mg/dL Creatinine (0.66-1.25) mg/dL Glucose (74-99) mg/dL POC Glucose (mg/dL) 165 H 235 H 247 H (70-110) mg/dL Total Protein (6.3-8.2) g/dL Albumin (3.5-5.0) g/dL 09/21/23 09/21/23 09/21/23 Range/Units 15:36 16:04 17:33 Sodium (137-145) mmol/L Carbon Dioxide (22-30) mmol/L BUN (9-20) mg/dL Creatinine (0.66-1.25) mg/dL Glucose (74-99) mg/dL POC Glucose (mg/dL) 277 H 314 H 274 H (70-110) mg/dL Total Protein (6.3-8.2) g/dL Albumin (3.5-5.0) g/dL 09/21/23 09/21/23 09/21/23 Range/Units 18:34 19:31 19:47 Sodium 129 L (137-145) mmol/L Carbon Dioxide 16 L (22-30) mmol/L BUN (9-20) mg/dL Creatinine 0.53 L (0.66-1.25) mg/dL Glucose 189 H (74-99) mg/dL POC Glucose (mg/dL) 229 H 210 H (70-110) mg/dL Total Protein (6.3-8.2) g/dL Albumin (3.5-5.0) g/dL 09/21/23 09/21/23 09/21/23 Range/Units 20:32 21:47 22:35 Sodium (137-145) mmol/L Carbon Dioxide (22-30) mmol/L BUN (9-20) mg/dL Creatinine (0.66-1.25) mg/dL Glucose (74-99) mg/dL POC Glucose (mg/dL) 231 H 227 H 207 H (70-110) mg/dL Total Protein (6.3-8.2) g/dL Albumin (3.5-5.0) g/dL 09/21/23 09/22/23 09/22/23 Range/Units 23:38 00:26 01:28 Sodium (137-145) mmol/L Carbon Dioxide (22-30) mmol/L BUN (9-20) mg/dL Creatinine (0.66-1.25) mg/dL Glucose (74-99) mg/dL POC Glucose (mg/dL) 189 H 172 H 169 H (70-110) mg/dL Total Protein (6.3-8.2) g/dL Albumin (3.5-5.0) g/dL 09/22/23 09/22/23 09/22/23 Range/Units 02:34 02:38 04:03 Sodium 133 L (137-145) mmol/L Carbon Dioxide (22-30) mmol/L BUN (9-20) mg/dL Creatinine 0.52 L (0.66-1.25) mg/dL Glucose 122 H (74-99) mg/dL POC Glucose (mg/dL) 145 H 116 H (70-110) mg/dL Total Protein 5.8 L (6.3-8.2) g/dL Albumin 3.4 L (3.5-5.0) g/dL 09/22/23 09/22/23 09/22/23 Range/Units 05:39 06:29 08:05 Sodium 132 L (137-145) mmol/L Carbon Dioxide 19 L (22-30) mmol/L BUN 7 L (9-20) mg/dL Creatinine 0.53 L (0.66-1.25) mg/dL Glucose (74-99) mg/dL POC Glucose (mg/dL) 162 H 148 H (70-110) mg/dL Total Protein (6.3-8.2) g/dL Albumin (3.5-5.0) g/dL 09/22/23 Range/Units 08:55 Sodium (137-145) mmol/L Carbon Dioxide (22-30) mmol/L BUN (9-20) mg/dL Creatinine (0.66-1.25) mg/dL Glucose (74-99) mg/dL POC Glucose (mg/dL) 246 H (70-110) mg/dL Total Protein (6.3-8.2) g/dL Albumin (3.5-5.0) g/dL Assessment and Plan Plan: Acute diabetic ketoacidosis, likely secondary to medication noncompliance. Patient has had numerous episodes of DKA, recently discharged on 09/19/2023 for the same, he is being treated based on the DKA protocol, recovered and the patient and anion gap is closed Severe anion gap metabolic acidosis, secondary to above, recovered Dehydration can [place] to nausea and vomiting Type 1 diabetes mellitus, with poor medication compliance. Acute leukocytosis, likely reactive to DKA Diabetic neuropathy History of major depression Chronic marijuana use Chronic ongoing nicotine dependence Plan: Patient has been transitioned to long-acting insulin and gap is closed Again educated regarding the importance of medication compliance Discharge home today.
[2023-09-22 20:50] LABS: Glucose,Whole Blood 324 mg/dL (70-110)
[2023-09-23 02:19] LABS: Glucose,Whole Blood 146 mg/dL (70-110)
[2023-09-23 04:24] VITALS: RESP 16
[2023-09-23 05:48] LABS: Glucose,Whole Blood 39 mg/dL (70-110)
[2023-09-23 06:10] LABS: Glucose,Whole Blood 41 mg/dL (70-110)
[2023-09-23 06:26] LABS: Glucose,Whole Blood 43 mg/dL (70-110)
[2023-09-23 06:46] LABS: Glucose,Whole Blood 104 mg/dL (70-110)
[2023-09-23 07:47] LABS: Glucose,Whole Blood 229 mg/dL (70-110)
--- NOTE | 2023-09-23 08:06 | PN ---
PROGRESS NOTE CHIEF COMPLAINT: DKA. HISTORY OF PRESENT ILLNESS: This gentleman is doing better. Sugars are coming down, but he is still lethargic. PHYSICAL EXAMINATION: CHEST: Clear. CARDIAC: Normal. ABDOMEN: Soft, nontender. IMPRESSION: 1. Diabetic ketoacidosis. 2. Dehydration. 3. Depression. PLAN: Transition to basal bolus program. MMODL / IJN: [id number] /
[2023-09-23 11:47] LABS: Glucose,Whole Blood 158 mg/dL (70-110)
[2023-09-23 12:35] VITALS: BMI 19.4
[2023-09-23 14:47] VITALS: BP 122/80; PULSE 97; TEMP 98.2
--- NOTE | 2023-09-23 23:54 | DS ---
DISCHARGE SUMMARY CHIEF COMPLAINT: DKA. HISTORY OF PRESENT ILLNESS AND PHYSICAL EXAMINATION: Details of this man's history and physical can be found in the initial workup. LABORATORY STUDIES: While he was in the hospital, he had laboratory studies, details of which can be found in the laboratory section of his chart. COURSE IN THE HOSPITAL: After admission, he was placed on bedrest, started on intravenous fluids and DKA protocol. Blood sugars came down and he was rehydrated. He was doing well, and it was felt he could be discharged home on the . He will follow up in the office in several days, if he so chooses. FINAL DIAGNOSES: 1. Diabetic ketoacidosis. 2. Uncontrolled type 1 insulin-dependent diabetes mellitus. 3. Depression. 4. Gastroparesis. 5. Peripheral diabetic neuropathy. OPERATIONS: None. CONSULTATIONS: None. He is improved. GRACE / ALDEN: [id number] /
== END 2023-09-23 15:54 | disposition home or self-care (01) | DRG 420 ==
LOC: EC 20:23 → 3SCARD 22:06 → 5NMEDONC 09-22 11:46 → 1SOBS 09-22 16:56
PROVIDERS: ADMIT Family Medicine; ATTEND Family Medicine
DX: E10.10 Type 1 diabetes mellitus with ketoacidosis without coma (principal); E10.42 Type 1 diabetes mellitus with diabetic polyneuropathy; D72.829 Elevated white blood cell count, unspecified; E10.43 Type 1 diabetes mellitus with diabetic autonomic (poly)neuropathy; E86.0 Dehydration; F17.200 Nicotine dependence, unspecified, uncomplicated; F32.A Depression, unspecified; F60.3 Borderline personality disorder; J45.909 Unspecified asthma, uncomplicated; F41.9 Anxiety disorder, unspecified; K31.84 Gastroparesis; T38.3X6A Underdosing of insulin and oral hypoglycemic [antidiabetic] drugs, initial encounter; Z91.128 Patient's intentional underdosing of medication regimen for other reason; Z79.4 Long term (current) use of insulin; Z79.899 Other long term (current) drug therapy; Z91.199 Patient's noncompliance with other medical treatment and regimen due to unspecified reason; Z71.3 Dietary counseling and surveillance
CPT/HCPCS: 36415; 80048; 80051; 80053; 81003; 82009; 82565; 82947; 83605; 83735; 83880; 84100; 84484; 84520; 85025; 85610; 85730; 93005; 96361; 96365; 96366; 96374; 96375; 99291

== ENCOUNTER 2023-09-24 14:27 | Inpatient (IN) | payer OTHER ==
--- NOTE | 2023-09-24 14:32 | ED ---
Recheck HPI - General Stated Complaint: Hyperglycemia Time Seen by Provider: 09/24/23 14:29 Source: RN notes reviewed, old records reviewed Mode of arrival: ambulatory Limitations: no limitations - History of Present Illness Initial Comments: This is a 28-year-old male to the ER for evaluation patient [facility] for evaluation of suspected recurrent diabetic ketoacidosis patient has history of poorly uncontrolled diabetes, medical noncompliance and substance use. Patient just has recent hospital admission with discharge within 24 hours in regards to diabetes complication, patient is significantly altered here in the ER on unable to provide history MD Complaint: abnormal lab (hyperglycemia) -: days(s) Returns Today for: Called Because of Abnormal Lab/Test Symptoms Since Prior Visit: no new symptoms Context: planned re-check, called for abnormal lab result Associated Symptoms: none Treatments Prior to Arrival: other medications, other - Related Data Home Medications Medication Instructions Recorded Confirmed Ergocalciferol [Vitamin D2 (1250 1,250 mcg PO Q30D 04/29/23 09/24/23 Mcg = 14136 Iu)] Famotidine [Pepcid] 20 mg PO BID 04/29/23 09/24/23 Gabapentin 600 mg PO TID 04/29/23 09/24/23 Losartan Potassium 50 mg PO DAILY 04/29/23 09/24/23 Mirtazapine 7.5 mg PO HS 04/29/23 09/24/23 Insulin Glargine,Hum.rec.anlog 30 units SQ HS 09/07/23 09/24/23 [Insulin Glargine] Insulin Lispro 7 units SQ AC-TID 09/17/23 09/24/23 Previous Rx's Medication Instructions Recorded Atorvastatin [Lipitor] 20 mg PO HS #30 tab 09/26/23 Losartan [Cozaar] 25 mg PO DAILY #30 tab 09/26/23 Allergies Allergy/AdvReac Type Severity Reaction Status Date / Time No Known Allergies Allergy Verified 09/24/23 15:29 Review of Systems ROS Statement: Those systems with pertinent positive or pertinent negative responses have been documented in the HPI. ROS Other: All systems not noted in ROS Statement are negative. Past Medical History Past Medical History: Asthma, Diabetes Mellitus, Neurologic Disorder, Skin Disorder Additional Past Medical History / Comment(s): IDDM type I, neuropathy bilateral feet, DKA, eczema. History of Any Multi-Drug Resistant Organisms: None Reported Past Surgical History: Adenoidectomy Additional Past Surgical History / Comment(s): gastritis Past Anesthesia/Blood Transfusion Reactions: No Reported Reaction Past Psychological History: Anxiety, Depression Additional Psychological History / Comment(s): Pt has had multiple psychiatric admissions for depression/suicide attempts. Smoking Status: Current every day smoker Past Alcohol Use History: None Reported Additional Past Alcohol Use History / Comment(s): Pt started smoking cigarettes Pt started occasional vaping in 2009. patient states he hasnt had alcohol in one year. Past Drug Use History: Marijuana Additional Drug Use History / Comment(s): almost daily - Past Family History Mother Family Medical History: CVA/TIA Additional Family Medical History / Comment(s): TIA Father Family Medical History: Hyperlipidemia, Hypertension Additional Family Medical History / Comment(s): . General Exam Limitations: altered mental status, physical limitation General appearance: alert, anxious, lethargic, obtunded, in distress Head exam: Present: atraumatic, normocephalic, normal inspection Eye exam: Present: normal appearance, PERRL, EOMI. Absent: scleral icterus, conjunctival injection, periorbital swelling ENT exam: Present: normal exam, mucous membranes dry Neck exam: Present: normal inspection. Absent: tenderness, meningismus, lymphadenopathy Respiratory exam: Present: normal lung sounds bilaterally. Absent: respiratory distress, wheezes, rales, rhonchi, stridor Cardiovascular Exam: Present: normal rhythm, tachycardia, normal heart sounds. Absent: systolic murmur, diastolic murmur, rubs, gallop, clicks GI/Abdominal exam: Present: soft, normal bowel sounds. Absent: distended, tenderness, guarding, rebound, rigid Extremities exam: Present: normal inspection, full ROM, normal capillary refill. Absent: tenderness, pedal edema, joint swelling, calf tenderness Back exam: Present: normal inspection Neurological exam: Present: alert, oriented X3, CN II-XII intact Psychiatric exam: Present: normal affect, normal mood Skin exam: Present: warm, dry, intact, normal color. Absent: rash Course Vital Signs 09/24/23 09/24/23 09/24/23 14:33 15:08 17:34 Temperature 97.7 F Pulse Rate 134 H 121 H 134 H Respiratory 20 17 22 Rate Blood Pressure 123/71 102/53 100/46 O2 Sat by Pulse 100 99 98 Oximetry 09/24/23 18:11 Temperature Pulse Rate 122 H Respiratory 20 Rate Blood Pressure 106/56 O2 Sat by Pulse 98 Oximetry - Reevaluation(s) Reevaluation #1: 09/24/23 16:43 Records reviewed Reevaluation #2: 09/24/23 16:43 Patient symptoms unchanged Reevaluation #3: 09/24/23 16:43 Patient informed of results and questions answered Reevaluation #4: Was pt. sent in by a medical professional or institution (JAS Lucero, INVASIVE CARDIOVASCULAR TECHNOLOGIST, urgent care, hospital, or correction...) When possible be specific @ -no Did you speak to anyone other than the patient for history (EMS, parent, family, police, friend...)? What history was obtained from this source @ -no Did you review nursing and triage notes (agree or disagree)? Why? @ -agree Are old charts reviewed (outside hosp., previous admission, EMS record, old EKG, old radiological studies, urgent care reports/EKG's, correction records)? Report findings @ -yes Differential Diagnosis (chest pain, altered mental status, abdominal pain women, abdominal pain men, vaginal bleeding, weakness, fever, dyspnea, syncope, headache, dizziness, GI bleed, back pain, seizure, CVA, palpatations, mental health, musculoskeletal)? @ -prior EKG interpreted by me (3pts min.). @ -yes X-rays interpreted by me (1pt min.). @ -no CT interpreted by me (1pt min.). @ -no U/S interpreted by me (1pt. min.). @ -no What testing was considered but not performed or refused? (CT, X-rays, U/S, labs)? Why? @ -none What meds were considered but not given or refused? Why? @ -none Did you discuss the management of the patient with other professionals (professionals i.e. JAS Lucero, INVASIVE CARDIOVASCULAR TECHNOLOGIST, lab, RT, psych nurse, social security assessor, wireless communications engineer, teacher, disbursing officer, assistant case manager)? Give summary @ -no Was smoking cessation discussed for >3mins.? @ -no Was critical care preformed (if so, how long)? @ -yes31 Were there social determinants of health that impacted care today? How? (Homelessness, low income, unemployed, alcoholism, drug addiction, transpor tation, low edu. Level, literacy, decrease access to med. care, detention, rehab)? @ -none Was there de-escalation of care discussed even if they declined (Discuss DNR or withdrawal of care, Hospice)? DNR status @ -no What co-morbidities impacted this encounter? (DM, HTN, Smoking, COPD, CAD, Cancer, CVA, ARF, Chemo, Hep., AIDS, mental health diagnosis, sleep apnea, morbid obesity)? @ -none Was patient admitted / discharged? Hospital course, mention meds given and route, prescriptions, significant lab abnormalities, going to OR and other pertinent info. @ - 28 male to ER for evaluation reevaluation was discharged yesterday of hypoglycemia and DKA. Patient presents in recurrent and persistent diabetic ketoacidosis and will admit for further evaluation and management Admitted Undiagnosed new problem with uncertain prognosis? @ -no Drug Therapy requiring intensive monitoring for toxicity (Heparin, Nitro, Insulin, Cardizem)? @ -no Were any procedures done? @ -no Diagnosis/symptom? @ -DKA Acute, or Chronic, or Acute on Chronic? @ -Acute Uncomplicated (without systemic symptoms) or Complicated (systemic symptoms)? @ -Complicated Side effects of treatment? @ -no Exacerbation, Progression, or Severe Exacerbation? @ -exacerbation Poses a threat to life or bodily function? How? (Chest pain, [place], [place], pneumonia, PE, COPD, DKA, ARF, appy, cholecystitis, CVA, Diverticulitis, Homicidal, Suicidal, threat to staff... and all critical care pts) @ -yes significant DKA DKA - Consultations Consultation #1: Spoke with [facility] for Dr. Valenzuela who will admit this patient Medical Decision Making - Medical Decision Making 28 male to ER for evaluation reevaluation was discharged yesterday of hypogly cemia and DKA. Patient presents in recurrent and persistent diabetic ketoacidosis and will admit for further evaluation and management - Lab Data Result diagrams: 09/25/23 06:35 09/25/23 06:35 Lab Results 09/24/23 09/24/23 09/24/23 Range/Units 14:39 14:39 14:39 WBC 15.7 H (3.8-10.6) k/uL RBC 4.36 (4.30-5.90) m/uL Hgb 12.0 L (13.0-17.5) gm/dL Hct 39.3 (39.0-53.0) % MCV 90.0 (80.0-100.0) fL MCH 27.4 (25.0-35.0) pg MCHC 30.4 L (31.0-37.0) g/dL RDW 15.7 H (11.5-15.5) % Plt Count 424 (150-450) k/uL MPV 8.5 Neutrophils % 88 % Lymphocytes % 6 % Monocytes % 5 % Eosinophils % 0 % Basophils % 0 % Neutrophils # 13.8 H (1.3-7.7) k/uL Lymphocytes # 0.9 L (1.0-4.8) k/uL Monocytes # 0.9 (0-1.0) k/uL Eosinophils # 0.0 (0-0.7) k/uL Basophils # 0.0 (0-0.2) k/uL Hypochromasia Marked PT 10.4 (10.0-12.5) sec INR 0.9 (<1.2) APTT 22.1 (22.0-30.0) sec VBG pH (7.31-7.41) VBG pCO2 (37-51) mmHg VBG HCO3 (24-28) mmol/L Sodium 132 L (137-145) mmol/L Potassium 5.6 H (3.5-5.1) mmol/L Chloride 95 L (98-107) mmol/L Carbon Dioxide <5 L* (22-30) mmol/L Anion Gap mmol/L BUN 16 (9-20) mg/dL Creatinine 0.84 (0.66-1.25) mg/dL Est GFR (CKD-EPI)AfAm >90 (>60 ml/min/1.73 sqM) Est GFR (CKD-EPI)NonAf >90 (>60 ml/min/1.73 sqM) Glucose 692 H* (74-99) mg/dL POC Glucose (mg/dL) (70-110) mg/dL POC Glu Covering Machine Operator ID Lactic Ac Sepsis Rflx Plasma Lactic Acid Len (0.7-2.0) mmol/L Calcium 9.3 (8.4-10.2) mg/dL Phosphorus 4.3 (2.5-4.5) mg/dL Magnesium 1.9 (1.6-2.3) mg/dL Total Bilirubin 0.8 (0.2-1.3) mg/dL AST 20 (17-59) U/L ALT 19 (4-49) U/L Alkaline Phosphatase 131 H (38-126) U/L Troponin I (0.000-0.034) ng/mL Total Protein 6.9 (6.3-8.2) g/dL Albumin 4.7 (3.5-5.0) g/dL Urine Color Urine Appearance (Clear) Urine pH (5.0-8.0) Ur Specific Widen (1.001-1.035) Urine Protein (Negative) Urine Glucose (UA) (Negative) Urine Ketones (Negative) Urine Blood (Negative) Urine Nitrite (Negative) Urine Bilirubin (Negative) Urine Urobilinogen (<2.0) mg/dL Ur Leukocyte Esterase (Negative) Acetone, Qual Positive (Negative) 09/24/23 09/24/23 09/24/23 Range/Units 14:39 14:39 14:39 WBC (3.8-10.6) k/uL RBC (4.30-5.90) m/uL Hgb (13.0-17.5) gm/dL Hct (39.0-53.0) % MCV (80.0-100.0) fL MCH (25.0-35.0) pg MCHC (31.0-37.0) g/dL RDW (11.5-15.5) % Plt Count (150-450) k/uL MPV Neutrophils % % Lymphocytes % % Monocytes % % Eosinophils % % Basophils % % Neutrophils # (1.3-7.7) k/uL Lymphocytes # (1.0-4.8) k/uL Monocytes # (0-1.0) k/uL Eosinophils # (0-0.7) k/uL Basophils # (0-0.2) k/uL Hypochromasia PT (10.0-12.5) sec INR (<1.2) APTT (22.0-30.0) sec VBG pH (7.31-7.41) VBG pCO2 (37-51) mmHg VBG HCO3 (24-28) mmol/L Sodium (137-145) mmol/L Potassium (3.5-5.1) mmol/L Chloride (98-107) mmol/L Carbon Dioxide (22-30) mmol/L Anion Gap mmol/L BUN (9-20) mg/dL Creatinine (0.66-1.25) mg/dL Est GFR (CKD-EPI)AfAm (>60 ml/min/1.73 sqM) Est GFR (CKD-EPI)NonAf (>60 ml/min/1.73 sqM) Glucose (74-99) mg/dL POC Glucose (mg/dL) (70-110) mg/dL POC Glu Covering Machine Operator ID Lactic Ac Sepsis Rflx Plasma Lactic Acid Len 2.7 H* (0.7-2.0) mmol/L Calcium (8.4-10.2) mg/dL Phosphorus (2.5-4.5) mg/dL Magnesium (1.6-2.3) mg/dL Total Bilirubin (0.2-1.3) mg/dL AST (17-59) U/L ALT (4-49) U/L Alkaline Phosphatase (38-126) U/L Troponin I <0.012 (0.000-0.034) ng/mL Total Protein (6.3-8.2) g/dL Albumin (3.5-5.0) g/dL Urine Color Colorless Urine Appearance Clear (Clear) Urine pH 5.0 (5.0-8.0) Ur Specific Widen 1.026 (1.001-1.035) Urine Protein Negative (Negative) Urine Glucose (UA) 4+ H (Negative) Urine Ketones 4+ H (Negative) Urine Blood Negative (Negative) Urine Nitrite Negative (Negative) Urine Bilirubin Negative (Negative) Urine Urobilinogen <2.0 (<2.0) mg/dL Ur Leukocyte Esterase Negative (Negative) Acetone, Qual (Negative) 09/24/23 09/24/23 09/24/23 Range/Units 14:39 15:21 15:42 WBC (3.8-10.6) k/uL RBC (4.30-5.90) m/uL Hgb (13.0-17.5) gm/dL Hct (39.0-53.0) % MCV (80.0-100.0) fL MCH (25.0-35.0) pg MCHC (31.0-37.0) g/dL RDW (11.5-15.5) % Plt Count (150-450) k/uL MPV Neutrophils % % Lymphocytes % % Monocytes % % Eosinophils % % Basophils % % Neutrophils # (1.3-7.7) k/uL Lymphocytes # (1.0-4.8) k/uL Monocytes # (0-1.0) k/uL Eosinophils # (0-0.7) k/uL Basophils # (0-0.2) k/uL Hypochromasia PT (10.0-12.5) sec INR (<1.2) APTT (22.0-30.0) sec VBG pH 7.25 L (7.31-7.41) VBG pCO2 21 L (37-51) mmHg VBG HCO3 9 L* (24-28) mmol/L Sodium (137-145) mmol/L Potassium (3.5-5.1) mmol/L Chloride (98-107) mmol/L Carbon Dioxide (22-30) mmol/L Anion Gap mmol/L BUN (9-20) mg/dL Creatinine (0.66-1.25) mg/dL Est GFR (CKD-EPI)AfAm (>60 ml/min/1.73 sqM) Est GFR (CKD-EPI)NonAf (>60 ml/min/1.73 sqM) Glucose (74-99) mg/dL POC Glucose (mg/dL) >600 H (70-110) mg/dL POC Glu Covering Machine Operator ID Mateo Yoder Lactic Ac Sepsis Rflx Y Plasma Lactic Acid Len (0.7-2.0) mmol/L Calcium (8.4-10.2) mg/dL Phosphorus (2.5-4.5) mg/dL Magnesium (1.6-2.3) mg/dL Total Bilirubin (0.2-1.3) mg/dL AST (17-59) U/L ALT (4-49) U/L Alkaline Phosphatase (38-126) U/L Troponin I (0.000-0.034) ng/mL Total Protein (6.3-8.2) g/dL Albumin (3.5-5.0) g/dL Urine Color Urine Appearance (Clear) Urine pH (5.0-8.0) Ur Specific Widen (1.001-1.035) Urine Protein (Negative) Urine Glucose (UA) (Negative) Urine Ketones (Negative) Urine Blood (Negative) Urine Nitrite (Negative) Urine Bilirubin (Negative) Urine Urobilinogen (<2.0) mg/dL Ur Leukocyte Esterase (Negative) Acetone, Qual (Negative) - EKG Data -: EKG Interpreted by Me (EKG is sinus tachycardia 133 PA 140 QRS 95 QTc 383) Critical Care Time Critical Care Time: Yes Total Critical Care Time: 31 Disposition Clinical Impression: Dehydration, Diabetic ketoacidosis associated with type 1 diabetes mellitus Disposition: ADMITTED IP TO THIS HOSP Condition: Fair Is patient prescribed a controlled substance at d/c from ED?: No Time of Disposition: 16:30
[2023-09-24 14:41] LABS: Glucose,Whole Blood >600 mg/dL (70-110)
[2023-09-24] MEDS: LORazepam 2 MG/ML INJ IV STA (14:42)
[2023-09-24] MEDS: PROCHLORPERAZINE INJ 10 MG/2 ML VIAL IVP STA (14:42)
[2023-09-24] MEDS: SODIUM CHLORIDE 0.9% 1,000 ML IV STA (14:43)
[2023-09-24 15:06] LABS: ALT 19 U/L (4-49); AST 20 U/L (17-59); African American GFR (CKD) >90 (>60 ml/min/1.73 sqM); Albumin 4.7 g/dL (3.5-5.0); Alkaline Phosphatase 131 U/L (38-126); Blood Urea Nitrogen 16 mg/dL (9-20); Calcium 9.3 mg/dL (8.4-10.2); Chloride 95 mmol/L (98-107); Magnesium 1.9 mg/dL (1.6-2.3); Non-African American GFR(CKD) >90 (>60 ml/min/1.73 sqM); Phosphorus 4.3 mg/dL (2.5-4.5); Potassium 5.6 mmol/L (3.5-5.1); Sodium 132 mmol/L (137-145); Total Bilirubin 0.8 mg/dL (0.2-1.3); Total Protein 6.9 g/dL (6.3-8.2)
[2023-09-24 15:14] LABS: Basophils % (A) 0 %; Eosinophils % (A) 0 %; HCT 39.3 % (39.0-53.0); Hypochromasia Marked; Lymphocytes # (A) 0.9 k/uL (1.0-4.8); Lymphocytes % (A) 6 %; MCH 27.4 pg (25.0-35.0); MCHC 30.4 g/dL (31.0-37.0); Mean Platelet Volume 8.5; Monocytes # (A) 0.9 k/uL (0-1.0); Monocytes % (A) 5 %; Neutrophils # (A) 13.8 k/uL (1.3-7.7); Neutrophils % (A) 88 %; Platelet Count 424 k/uL (150-450); RBC 4.36 m/uL (4.30-5.90); RDW 15.7 % (11.5-15.5); WBC 15.7 k/uL (3.8-10.6)
[2023-09-24 15:18] LABS: INR 0.9 (<1.2); Partial Thromboplastin Time 22.1 sec (22.0-30.0); Prothrombin Time 10.4 sec (10.0-12.5)
[2023-09-24 15:19] LABS: Carbon Dioxide <5 mmol/L (22-30)
[2023-09-24 15:21] LABS: Glucose 692 mg/dL (74-99)
[2023-09-24 16:08] LABS: Appearance,Urine Clear (Clear); Bilirubin,Urine Negative (Negative); Blood,Urine Negative (Negative); Color,Urine Colorless; Leukocyte Esterase,Urine Negative (Negative); Nitrite,Urine Negative (Negative); Protein,Urine Negative (Negative); Specific Gravity,Urine 1.026 (1.001-1.035); Urobilinogen,Urine <2.0 mg/dL (<2.0)
[2023-09-24 16:11] LABS: VBG PH 7.25 (7.31-7.41)
[2023-09-24 16:12] LABS: Ketones,Urine 4+ (Negative)
[2023-09-24 16:13] LABS: Glucose,Urine (UA) 4+ (Negative)
[2023-09-24] MEDS ORDERED: Magnesium Replacement Protocol 1 EACH MISC MISCELLANE PRN (16:39)
[2023-09-24] MEDS ORDERED: NALOXONE 0.4 MG/ML 1 ML VIAL IV PRN (16:39)
[2023-09-24] MEDS ORDERED: ONDANSETRON 4 MG/2 ML VIAL IVP PRN (16:39)
[2023-09-24] MEDS ORDERED: MORPHINE SULFATE 4 MG/ML SYRINGE IV PRN (16:39)
[2023-09-24] MEDS ORDERED: Potassium Replacement Protocol 1 EACH MISC MISCELLANE PRN (16:39)
[2023-09-24] MEDS ORDERED: DEXTROSE 50% SYRINGE 50 ML IVP PRN ×2 (16:39)
[2023-09-24] MEDS: SODIUM CHLORIDE 0.9% 1,000 ML IV SCH ×2 (16:47→17:42)
[2023-09-24] MEDS: D5-0.45% NACL WITH KCL 20MEQ/L 1,000 ML IV SCH (17:06)
[2023-09-24] MEDS: INSULIN REGULAR 100 UNIT in SODIUM CHLORIDE 0.9% 100 ML IV SCH (17:41)
[2023-09-24] MEDS: INSULIN REGULAR BOLUS (FROM DRIP BAG) IV ONE (17:42)
[2023-09-24 18:46] LABS: Glucose,Whole Blood 545 mg/dL (70-110)
[2023-09-24 20:02] LABS: Glucose,Whole Blood 329 mg/dL (70-110)
[2023-09-24 20:35] LABS: African American GFR (CKD) >90 (>60 ml/min/1.73 sqM); Anion Gap 29 mmol/L; Blood Urea Nitrogen 16 mg/dL (9-20); Chloride 103 mmol/L (98-107); Glucose 329 mg/dL (74-99); Non-African American GFR(CKD) >90 (>60 ml/min/1.73 sqM); Potassium 4.3 mmol/L (3.5-5.1); Sodium 141 mmol/L (137-145)
[2023-09-24 20:36] LABS: Carbon Dioxide 9 mmol/L (22-30)
[2023-09-24 21:15] LABS: Glucose,Whole Blood 222 mg/dL (70-110)
[2023-09-24 22:28] LABS: Glucose,Whole Blood 141 mg/dL (70-110)
[2023-09-24 23:34] LABS: Glucose,Whole Blood 201 mg/dL (70-110)
[2023-09-25 00:17] LABS: African American GFR (CKD) >90 (>60 ml/min/1.73 sqM); Anion Gap 10 mmol/L; Blood Urea Nitrogen 13 mg/dL (9-20); Carbon Dioxide 18 mmol/L (22-30); Chloride 101 mmol/L (98-107); Glucose 157 mg/dL (74-99); Non-African American GFR(CKD) >90 (>60 ml/min/1.73 sqM); Potassium 4.5 mmol/L (3.5-5.1); Sodium 129 mmol/L (137-145)
[2023-09-25 00:58] LABS: Glucose,Whole Blood 221 mg/dL (70-110)
[2023-09-25 02:13] LABS: Glucose,Whole Blood 284 mg/dL (70-110)
[2023-09-25 03:10] LABS: Glucose,Whole Blood 263 mg/dL (70-110)
[2023-09-25 04:03] LABS: Glucose,Whole Blood 199 mg/dL (70-110)
[2023-09-25 05:22] LABS: Glucose,Whole Blood 144 mg/dL (70-110)
[2023-09-25 06:22] LABS: Glucose,Whole Blood 124 mg/dL (70-110)
[2023-09-25 07:18] LABS: Glucose,Whole Blood 209 mg/dL (70-110)
[2023-09-25 07:20] LABS: ALT 16 U/L (4-49); AST 15 U/L (17-59); African American GFR (CKD) >90 (>60 ml/min/1.73 sqM); Alkaline Phosphatase 88 U/L (38-126); Anion Gap 9 mmol/L; Blood Urea Nitrogen 9 mg/dL (9-20); Calcium 8.4 mg/dL (8.4-10.2); Carbon Dioxide 19 mmol/L (22-30); Chloride 101 mmol/L (98-107); Glucose 111 mg/dL (74-99); Magnesium 1.7 mg/dL (1.6-2.3); Non-African American GFR(CKD) >90 (>60 ml/min/1.73 sqM); Phosphorus 2.7 mg/dL (2.5-4.5); Potassium 4.2 mmol/L (3.5-5.1); Sodium 129 mmol/L (137-145); Total Bilirubin 0.4 mg/dL (0.2-1.3); Total Protein 5.3 g/dL (6.3-8.2)
[2023-09-25 07:27] LABS: Anisocytosis Slight; Basophils # (A) 0.1 k/uL (0-0.2); Basophils % (A) 1 %; Eosinophils # (A) 0.1 k/uL (0-0.7); Eosinophils % (A) 1 %; HCT 30.5 % (39.0-53.0); Lymphocytes # (A) 2.9 k/uL (1.0-4.8); Lymphocytes % (A) 24 %; MCH 26.7 pg (25.0-35.0); MCHC 30.7 g/dL (31.0-37.0); Mean Platelet Volume 6.7; Monocytes # (A) 0.6 k/uL (0-1.0); Monocytes % (A) 5 %; Neutrophils # (A) 8.2 k/uL (1.3-7.7); Neutrophils % (A) 68 %; Platelet Count 312 k/uL (150-450); RDW 16.1 % (11.5-15.5); WBC 12.1 k/uL (3.8-10.6)
[2023-09-25 07:29] LABS: HGB 9.4 gm/dL (13.0-17.5)
[2023-09-25 08:08] LABS: Glucose,Whole Blood 382 mg/dL (70-110)
[2023-09-25] MEDS: PANTOPRAZOLE 40 MG/10 ML VIAL IV SCH (08:39)
[2023-09-25 09:04] LABS: Glucose,Whole Blood 289 mg/dL (70-110)
[2023-09-25 10:19] LABS: Glucose,Whole Blood 233 mg/dL (70-110)
[2023-09-25 11:19] LABS: Glucose,Whole Blood 159 mg/dL (70-110)
[2023-09-25 12:04] LABS: Glucose,Whole Blood 231 mg/dL (70-110)
[2023-09-25 13:07] LABS: Glucose,Whole Blood 211 mg/dL (70-110)
[2023-09-25 13:08] VITALS: BMI 21.2
[2023-09-25 14:02] LABS: Glucose,Whole Blood 194 mg/dL (70-110)
[2023-09-25] MEDS: INSULIN DETEMIR (LEVEMIR) 100 UNIT/ML SYR SQ SCH (14:30)
[2023-09-25 15:09] LABS: Glucose,Whole Blood 196 mg/dL (70-110)
[2023-09-25 16:38] LABS: Glucose,Whole Blood 208 mg/dL (70-110)
[2023-09-25] MEDS: INSULIN ASPART (NovoLOG) 100 UNIT/ML VIAL SQ SCH (16:59)
[2023-09-25 19:58] LABS: Glucose,Whole Blood 106 mg/dL (70-110)
[2023-09-25] MEDS ORDERED: INSULIN DETEMIR (LEVEMIR) 100 UNIT/ML SYR SQ SCH (21:00)
[2023-09-26 01:34] LABS: Glucose,Whole Blood 102 mg/dL (70-110)
[2023-09-26 02:42] LABS: Glucose,Whole Blood 82 mg/dL (70-110)
[2023-09-26 03:17] LABS: Glucose,Whole Blood 86 mg/dL (70-110)
[2023-09-26 06:05] LABS: Glucose,Whole Blood 100 mg/dL (70-110)
[2023-09-26 08:57] VITALS: RESP 16; TEMP 97.9
[2023-09-26 11:44] LABS: Glucose,Whole Blood 293 mg/dL (70-110)
[2023-09-26] MEDS: LOSARTAN 25 MG TAB PO SCH (11:51)
[2023-09-26 12:33] VITALS: BP 124/87; PULSE 104
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
--- NOTE | 2023-09-26 13:11 | CA ---
Transthoracic Echo Report Name: Raul Marquez Age: 28 Gender: M : 1995 Exam Date: 09/26/2023 09:38 Exam Location: [place] [facility] Ht (in): 75 Wt (lb): 170 Ordering Physician: Brown Valenzuela MD Attending/Referring Phys: Crown Perforator Operator Johanna Gibson RDCS Procedure CPT: Indications: LV function, DKA Cardiac Hx: Technical Quality: Good Contrast 1: Total Dose (mL): Contrast 2: Total Dose (mL): MEASUREMENTS (Male / Female) Normal Values 2D ECHO LV Diastolic Diameter PLAX 4.9 cm 4.2 - 5.9 / 3.9 - 5.3 cm LV Systolic Diameter PLAX 3.7 cm IVS Diastolic Thickness 0.7 cm 0.6 - 1.0 / 0.6 - 0.9 cm LVPW Diastolic Thickness 1.0 cm 0.6 - 1.0 / 0.6 - 0.9 cm LV Relative Wall Thickness 0.4 RV Internal Dim ED PLAX 3.2 cm LVOT Diameter 2.2 cm LV Diastolic Volume MOD BP 138.2 cm??? 67 - 155 / 56 - 104 cm??? LV Systolic Volume MOD BP 65.4 cm??? 22 - 58 / 19 - 49 cm??? LV Ejection Fraction MOD BP 52.7 % >= 55 % LV Cardiac Index MOD BP 3435.3 cm???/min???m??? LV Diastolic Volume MOD 4C 133.1 cm??? LV Systolic Volume MOD 4C 56.6 cm??? LV Ejection Fraction MOD 4C 57.4 % LV Cardiac Index MOD 4C 3609.8 cm???/min???m??? LV Diastolic Length 4C 9.5 cm LV Systolic Length 4C 7.7 cm LV Diastolic Volume MOD 2C 143.6 cm??? LV Systolic Volume MOD 2C 70.7 cm??? LV Ejection Fraction MOD 2C 50.8 % LV Cardiac Index MOD 2C 3444.8 cm???/min???m??? LV Diastolic Length 2C 9.5 cm LV Systolic Length 2C 8.3 cm LA Volume 62.5 cm??? 18 - 58 / 22 - 52 cm??? LA Volume Index 31.0 cm???/m??? 16 - 28 cm???/m??? M-MODE LV Diastolic Diameter MM 4.8 cm 4.2 - 5.9 / 3.9 - 5.3 cm LV Systolic Diameter MM 3.5 cm LV Cardiac Index MM Teich 2646.8 cm???/min???m??? IVS Diastolic Thickness MM 1.0 cm 0.6 - 1.0 / 0.6 - 0.9 cm LVPW Diastolic Thickness MM 1.1 cm 0.6 - 1.0 / 0.6 - 0.9 cm LV Relative Wall Thickness MM 0.4 0.24 - 0.42 / 0.22 - 0.42 LV Mass Index MM 89.5 g/m??? 49 - 115 / 43 - 95 g/m??? DOPPLER AV Peak Velocity 111.2 cm/s AV Peak Gradient 4.9 mmHg AV Mean Velocity 75.9 cm/s AV Mean Gradient 2.5 mmHg AV Velocity Time Integral 22.8 cm LVOT Peak Velocity 97.1 cm/s LVOT Peak Gradient 3.8 mmHg LVOT Velocity Time Integral 19.2 cm LVOT Stroke Volume 74.7 cm??? LVOT Stroke Volume Index 36.5 ml/m??? LVOT Cardiac Index 3525.8 cm???/min???m??? AV Area Cont Eq vti 3.3 cm??? AV Area Cont Eq pk 3.4 cm??? MV Area PHT 5.9 cm??? Mitral E Point Velocity 91.7 cm/s Mitral A Point Velocity 55.5 cm/s Mitral E to A Ratio 1.7 MV Deceleration Time 128.9 ms TR Peak Velocity 203.0 cm/s TR Peak Gradient 16.5 mmHg Right Atrial Pressure 5.0 mmHg Pulmonary Artery Systolic Pressu 21.5 mmHg Right Ventricular Systolic Press 21.5 mmHg PV Peak Velocity 88.2 cm/s PV Peak Gradient 3.1 mmHg FINDINGS Left Ventricle Left ventricular ejection fraction is estimated at 50-55 %. Mildly decreased midwall fractional shortening. Mildly increased left ventricular systolic volume. Mildly increased left ventricular relative wall thickness. Mildly decreased left ventricular ejection fraction. No obvious regional wall motion abnormalities. Right Ventricle Normal right ventricular size and function. Right ventricular systolic pressure within normal limits. Right Atrium Normal right atrial size. Left Atrium Mildly increased left atrial volume. Mildly increased left atrial area. Mitral Valve Structurally normal mitral valve. No evidence for mitral valve prolapse. No mitral stenosis. Trace mitral regurgitation. Aortic Valve Trileaflet aortic valve. No aortic stenosis. No aortic regurgitation. Tricuspid Valve Structurally normal tricuspid valve. No tricuspid stenosis. Trace tricuspid regurgitation. Pulmonic Valve Structurally normal pulmonic valve. No pulmonic stenosis. Trace pulmonic regurgitation. Pericardium No pericardial effusion. Aorta Normal size aortic root and proximal ascending aorta. CONCLUSIONS Normal LV systolic function Normal RV systolic function Normal pulmonary artery systolic pressure Normal intracardiac valves with mild physiologic mitral regurgitation No pericardial effusion Previewed by: Dr. Lucio Jacobs MD (Electronically Signed) Final Date: 26 Sep 2023 13:04
[2023-09-26] MEDS ORDERED: ATORVASTATIN 20 MG TAB PO SCH (21:00)
--- NOTE | 2023-09-27 20:55 | DS ---
DISCHARGE SUMMARY CHIEF COMPLAINT: Diabetic ketoacidosis. HISTORY OF PRESENT ILLNESS AND PHYSICAL EXAM: Details of this man's history and physical can be found in the initial workup. LABORATORY STUDIES: While he is in the hospital, he had laboratory studies, details of which can be found in the laboratory section of the chart. COURSE IN THE HOSPITAL: After admission, he was placed on bedrest, started on intravenous fluids and DKA protocol all over again. As his sugars came down, the gap closed, he became less nauseated. It was felt that he could be discharged on the . When he was discharged, he was told that he had a new issue, which was a harbinger of probable further cardiac problem. He had gone into junctional rhythm and then went back into normally conducted rhythm. He was seen by Cardiology and an echocardiogram is normal. He will be followed up in the office. FINAL DIAGNOSES: 1. Diabetic ketoacidosis. 2. Depression. 3. Gastroparesis. 4. Diabetic peripheral neuropathy. 5. Junctional heart rhythm. OPERATIONS: None. CONSULTATIONS: Cardiology. He has improved. MMBIANCA / TRAMN: [id number] /
--- NOTE | 2023-09-28 08:04 | PN ---
PROGRESS NOTE DATE OF SERVICE: 09/25/2023 CHIEF COMPLAINT: DKA. HISTORY OF PRESENT ILLNESS: This gentleman is improving. He is still lethargic and still nauseated. Sugars are coming down. PHYSICAL EXAMINATION: CHEST: Clear. CARDIAC: Normal. ABDOMEN: Flat, soft, nontender. IMPRESSION: 1. Diabetes ketoacidosis. 2. Depression. PLAN: Advance diet and increase activity and probably discharge tomorrow. MMODL / IJN: [id number] /
== END 2023-09-26 14:36 | disposition home or self-care (01) | DRG 420 ==
LOC: EC 14:27 → 3SCARD 16:41
PROVIDERS: ADMIT Family Medicine; ATTEND Family Medicine
DX: E10.10 Type 1 diabetes mellitus with ketoacidosis without coma (principal); E10.42 Type 1 diabetes mellitus with diabetic polyneuropathy; E10.43 Type 1 diabetes mellitus with diabetic autonomic (poly)neuropathy; E86.0 Dehydration; F17.290 Nicotine dependence, other tobacco product, uncomplicated; F32.A Depression, unspecified; F41.9 Anxiety disorder, unspecified; R00.0 Tachycardia, unspecified; I10 Essential (primary) hypertension; J45.909 Unspecified asthma, uncomplicated; T38.3X6A Underdosing of insulin and oral hypoglycemic [antidiabetic] drugs, initial encounter; K31.84 Gastroparesis; Z79.4 Long term (current) use of insulin; Z79.899 Other long term (current) drug therapy; Z86.73 Personal history of transient ischemic attack (TIA), and cerebral infarction without residual deficits; Z91.199 Patient's noncompliance with other medical treatment and regimen due to unspecified reason; Z91.51 Personal history of suicidal behavior; Z91.128 Patient's intentional underdosing of medication regimen for other reason
CPT/HCPCS: 36415; 80051; 80053; 81003; 82009; 82565; 82803; 82947; 83605; 83735; 84100; 84484; 84520; 85025; 85610; 85730; 93005; 93306; 94760; 96361; 96365; 96375; 99291

== ENCOUNTER 2023-10-30 09:00 | Inpatient (IN) | payer OTHER ==
[2023-10-30] MEDS: SODIUM CHLORIDE 0.9% 1,000 ML IV STA ×2 (09:00→09:39)
[2023-10-30 09:05] LABS: Glucose,Whole Blood 538 mg/dL (70-110)
[2023-10-30 09:07] VITALS: BP 131/96; PULSE 106; RESP 18; TEMP 97.9
--- NOTE | 2023-10-30 09:08 | ED ---
General Adult HPI - General Stated complaint: nausea and vomiting Time Seen by Provider: 10/30/23 09:00 Source: patient, RN notes reviewed, old records reviewed - History of Present Illness Initial comments: Patient is a 28-year-old male well-known to emergency department presented to the emergency department with nausea and vomiting. Has a history of type 1 diabetes. Is frequently in DKA. Presents with his typical symptoms. Accu-Chek by EMS was registering in the 500s. He is more conversational than normal when he is in severe DKA. States symptoms got worse this morning but has been having emesis for the last few days. Endorses some mild epigastric discomfort with nausea and vomiting nonbilious nonbloody emesis. Denies any chest pain or shortness of breath. No other acute complaints at this time. States these are typical symptoms for his DKA. Presents for further evaluation. - Related Data Home Medications Medication Instructions Recorded Confirmed Ergocalciferol [Vitamin D2 (1250 1,250 mcg PO Q30D 04/29/23 10/30/23 Mcg = 73347 Iu)] Famotidine [Pepcid] 20 mg PO BID 04/29/23 10/30/23 Gabapentin 600 mg PO TID 04/29/23 10/30/23 Mirtazapine 7.5 mg PO HS 04/29/23 10/30/23 Insulin Glargine,Hum.rec.anlog 25 units SQ DAILY 09/07/23 10/30/23 [Insulin Glargine] Insulin Lispro 7 units SQ AC-TID 09/17/23 10/30/23 Ferrous Sulfate [Feosol] 325 mg PO DAILY 10/09/23 10/30/23 Omeprazole 20 mg PO BID 10/30/23 10/30/23 Previous Rx's Medication Instructions Recorded Atorvastatin [Lipitor] 20 mg PO HS #30 tab 09/26/23 Losartan [Cozaar] 25 mg PO DAILY #30 tab 09/26/23 Allergies Allergy/AdvReac Type Severity Reaction Status Date / Time No Known Allergies Allergy Verified 10/30/23 09:36 Review of Systems ROS Statement: Those systems with pertinent positive or pertinent negative responses have been documented in the HPI. Review of Systems: CONST: Denies fever EYES: Denies blurry vision ENT: Denies nasal congestion C/V: Denies Chest pain RESP: Denies shortness of breath GI: Endorses abdominal pain : Denies dysuria SKIN: Denies rash. MSK: Denies joint pain. NEURO: Denies headache ROS Other: All systems not noted in ROS Statement are negative. Past Medical History Past Medical History: Asthma, Diabetes Mellitus, Neurologic Disorder, Skin Disorder Additional Past Medical History / Comment(s): IDDM type I, neuropathy bilateral feet, DKA, eczema. History of Any Multi-Drug Resistant Organisms: None Reported Past Surgical History: Adenoidectomy Additional Past Surgical History / Comment(s): gastritis Past Anesthesia/Blood Transfusion Reactions: No Reported Reaction Past Psychological History: Anxiety, Depression Smoking Status: Current every day smoker Past Alcohol Use History: None Reported Past Drug Use History: Marijuana - Past Family History Mother Family Medical History: CVA/TIA Additional Family Medical History / Comment(s): TIA Father Family Medical History: Hyperlipidemia, Hypertension Additional Family Medical History / Comment(s): . General Exam - General Exam Comments Initial Comments: General: Appears in mild to moderate distress secondary to nausea and vomiting. HEAD: Normal with no signs of head trauma. EYES: PERRLA, EOMI, conjunctiva normal, no discharge. ENT: Grossly intact. Dry mucous membranes. RESPIRATORY: Clear breath sounds bilaterally. No wheezes, rales, or rhonchi. C/V: Regular rate and rhythm. S1 and S2 auscultated, no edema, peripheral pulses 2+ and intact throughout ABD: Abdomen is soft, nondistended. Minimal tenderness to palpation in the epigastric region. No guarding. No rebound tenderness. No peritoneal signs. EXT: no obvious deformity SKIN: No rashes or lesions observed on exposed skin. NEURO: Alert and oriented x 4. No focal deficits. Course Vital Signs 10/30/23 09:03 Temperature 97.9 F Pulse Rate 106 H Respiratory 18 Rate Blood Pressure 131/96 O2 Sat by Pulse 100 Oximetry Medical Decision Making - Medical Decision Making Was pt. sent in by a medical professional or institution (, PA, STITCH BONDING MACHINE TENDER, urgent care, hospital, or senior care...) When possible be specific @ -No Did you speak to anyone other than the patient for history (EMS, parent, family, police, friend...)? What history was obtained from this source @ -No Did you review nursing and triage notes (agree or disagree)? Why? @ -I reviewed and agree with nursing and triage notes Were old charts reviewed (outside hosp., previous admission, EMS record, old EKG, old radiological studies, urgent care reports/EKG's, senior care records)? Report findings @ -Prior charts reviewed and patient was most recently here on September 2023. Has had numerous visits since the beginning of this year for DKA. Last visit showed the patient was not in DKA on October 09, 2023. Will repeat laboratory studies on this visit. Differential Diagnosis (chest pain, altered mental status, abdominal pain women, abdominal pain men, vaginal bleeding, weakness, fever, dyspnea, syncope, headache, dizziness, GI bleed, back pain, seizure, CVA, palpatations, mental health, musculoskeletal)? @ -DKA, diabetic hyperglycemia, dehydration, electrolyte abnormality. This list is not all inclusive. EKG interpreted by me (3pts min.). @ -As above X-rays interpreted by me (1pt min.). @ -None done CT interpreted by me (1pt min.). @ -None done U/S interpreted by me (1pt. min.). @ -None done What testing was considered but not performed or refused? (CT, X-rays, U/S, labs)? Why? @ -None What meds were considered but not given or refused? Why? @ -None Did you discuss the management of the patient with other professionals (eric tidwell i.e. , PA, STITCH BONDING MACHINE TENDER, lab, RT, psych nurse, geriatric social worker, helminthologist, teacher, customer service security officer, disability case manager)? Give summary @ -I spoke with admitting physician, Dr. Valenzuela who accepted the admission Was smoking cessation discussed for >3mins.? @ -No Was critical care preformed (if so, how long)? @ -Yes, 32 minutes Were there social determinants of health that impacted care today? How? (Homelessness, low income, unemployed, alcoholism, drug addiction, transportation, low edu. Level, literacy, decrease access to med. care, correction, rehab)? @ -No Was there de-escalation of care discussed even if they declined (Discuss DNR or withdrawal of care, Hospice)? DNR status @ -No What co-morbidities impacted this encounter? (DM, HTN, Smoking, COPD, CAD, Cancer, CVA, ARF, Chemo, Hep., AIDS, mental health diagnosis, sleep apnea, morbid obesity)? @ -None Was patient admitted / discharged? Hospital course, mention meds given and route, prescriptions, significant lab abnormalities, going to OR and other pertinent info. @ -Patient presents with nausea and vomiting in the setting of hyperglycemia. Is a known diabetic patient here in the department and frequently visits and episodes of DKA. We will obtain laboratory studies. He will be symptomatically treated with IV Reglan, Protonix, 1 L fluid bolus. Already received 1 L fluid bolus on the way to the ER. Patient also be started on maintenance fluids. Patient was in agreement this plan. Vital signs currently within acceptable limits. EKG shows no signs of acute ischemia. Laboratory studies remarkable for a compensated metabolic acidosis with an anion gap of 22. Hyperglycemia. Positive acetone. I updated the patient. He is placed on DKA protocol. Patient was in agreement this plan. Patient will be admitted to stepdown. I spoke with admitting physician, Dr. Valenzuela who accepted the admission. Patient reevaluated multiple times throughout his visit. Undiagnosed new problem with uncertain prognosis? @ -No Drug Therapy requiring intensive monitoring for toxicity (Heparin, Nitro, Insulin, Cardizem)? @ -Insulin Were any procedures done? @ -No Diagnosis/symptom? @ -DKA, nausea and vomiting Acute, or Chronic, or Acute on Chronic? @ -Acute Uncomplicated (without systemic symptoms) or Complicated (systemic symptoms)? @ -Complicated Side effects of treatment? @ -None Exacerbation, Progression, or Severe Exacerbation] @ -No Poses a threat to life or bodily function? @ -Yes - Lab Data Result diagrams: 10/30/23 09:15 10/30/23 11:40 Lab Results 10/30/23 10/30/23 10/30/23 Range/Units 09:05 09:15 09:15 WBC 8.4 (3.8-10.6) k/uL RBC 4.40 (4.30-5.90) m/uL Hgb 12.0 L (13.0-17.5) gm/dL Hct 38.1 L (39.0-53.0) % MCV 86.6 (80.0-100.0) fL MCH 27.4 (25.0-35.0) pg MCHC 31.6 (31.0-37.0) g/dL RDW 17.2 H (11.5-15.5) % Plt Count 267 (150-450) k/uL MPV 7.6 Neutrophils % 78 % Lymphocytes % 15 % Monocytes % 4 % Eosinophils % 1 % Basophils % 1 % Neutrophils # 6.6 (1.3-7.7) k/uL Lymphocytes # 1.3 (1.0-4.8) k/uL Monocytes # 0.4 (0-1.0) k/uL Eosinophils # 0.1 (0-0.7) k/uL Basophils # 0.1 (0-0.2) k/uL Hypochromasia Slight Anisocytosis Slight PT 10.6 (10.0-12.5) sec INR 1.0 (<1.2) APTT 22.5 (22.0-30.0) sec VBG pH (7.31-7.41) VBG pCO2 (37-51) mmHg VBG HCO3 (24-28) mmol/L Sodium (137-145) mmol/L Potassium (3.5-5.1) mmol/L Chloride (98-107) mmol/L Carbon Dioxide (22-30) mmol/L Anion Gap mmol/L BUN (9-20) mg/dL Creatinine (0.66-1.25) mg/dL Est GFR (CKD-EPI)AfAm (>60 ml/min/1.73 sqM) Est GFR (CKD-EPI)NonAf (>60 ml/min/1.73 sqM) Glucose (74-99) mg/dL POC Glucose (mg/dL) 538 H* (70-110) mg/dL POC Glu [address] Office Assistant ID Belval, Clementina Plasma Lactic Acid Len (0.7-2.0) mmol/L Calcium (8.4-10.2) mg/dL Total Bilirubin (0.2-1.3) mg/dL AST (17-59) U/L ALT (4-49) U/L Alkaline Phosphatase (38-126) U/L Total Protein (6.3-8.2) g/dL Albumin (3.5-5.0) g/dL Amylase (30-110) U/L Lipase (23-300) U/L Urine Color Urine Appearance (Clear) Urine pH (5.0-8.0) Ur Specific [place] (1.001-1.035) Urine Protein (Negative) Urine Glucose (UA) (Negative) Urine Ketones (Negative) Urine Blood (Negative) Urine Nitrite (Negative) Urine Bilirubin (Negative) Urine Urobilinogen (<2.0) mg/dL Ur Leukocyte Esterase (Negative) Acetone, Qual (Negative) 10/30/23 10/30/23 10/30/23 Range/Units 09:15 09:15 09:15 WBC (3.8-10.6) k/uL RBC (4.30-5.90) m/uL Hgb (13.0-17.5) gm/dL Hct (39.0-53.0) % MCV (80.0-100.0) fL MCH (25.0-35.0) pg MCHC (31.0-37.0) g/dL RDW (11.5-15.5) % Plt Count (150-450) k/uL MPV Neutrophils % % Lymphocytes % % Monocytes % % Eosinophils % % Basophils % % Neutrophils # (1.3-7.7) k/uL Lymphocytes # (1.0-4.8) k/uL Monocytes # (0-1.0) k/uL Eosinophils # (0-0.7) k/uL Basophils # (0-0.2) k/uL Hypochromasia Anisocytosis PT (10.0-12.5) sec INR (<1.2) APTT (22.0-30.0) sec VBG pH (7.31-7.41) VBG pCO2 (37-51) mmHg VBG HCO3 (24-28) mmol/L Sodium 136 L (137-145) mmol/L Potassium 4.5 (3.5-5.1) mmol/L Chloride 100 (98-107) mmol/L Carbon Dioxide 14 L (22-30) mmol/L Anion Gap 22 mmol/L BUN 17 (9-20) mg/dL Creatinine 0.67 (0.66-1.25) mg/dL Est GFR (CKD-EPI)AfAm >90 (>60 ml/min/1.73 sqM) Est GFR (CKD-EPI)NonAf >90 (>60 ml/min/1.73 sqM) Glucose 568 H* (74-99) mg/dL POC Glucose (mg/dL) (70-110) mg/dL POC Glu [address] Office Assistant ID Plasma Lactic Acid Len 1.7 (0.7-2.0) mmol/L Calcium 9.4 (8.4-10.2) mg/dL Total Bilirubin 1.0 (0.2-1.3) mg/dL AST 29 (17-59) U/L ALT 64 H (4-49) U/L Alkaline Phosphatase 118 (38-126) U/L Total Protein 6.7 (6.3-8.2) g/dL Albumin 4.5 (3.5-5.0) g/dL Amylase 48 (30-110) U/L Lipase 65 (23-300) U/L Urine Color Colorless Urine Appearance Clear (Clear) Urine pH 5.5 (5.0-8.0) Ur Specific [place] 1.031 (1.001-1.035) Urine Protein Negative (Negative) Urine Glucose (UA) 4+ H (Negative) Urine Ketones 4+ H (Negative) Urine Blood Negative (Negative) Urine Nitrite Negative (Negative) Urine Bilirubin Negative (Negative) Urine Urobilinogen <2.0 (<2.0) mg/dL Ur Leukocyte Esterase Negative (Negative) Acetone, Qual Positive (Negative) 10/30/23 Range/Units 09:15 WBC (3.8-10.6) k/uL RBC (4.30-5.90) m/uL Hgb (13.0-17.5) gm/dL Hct (39.0-53.0) % MCV (80.0-100.0) fL MCH (25.0-35.0) pg MCHC (31.0-37.0) g/dL RDW (11.5-15.5) % Plt Count (150-450) k/uL MPV Neutrophils % % Lymphocytes % % Monocytes % % Eosinophils % % Basophils % % Neutrophils # (1.3-7.7) k/uL Lymphocytes # (1.0-4.8) k/uL Monocytes # (0-1.0) k/uL Eosinophils # (0-0.7) k/uL Basophils # (0-0.2) k/uL Hypochromasia Anisocytosis PT (10.0-12.5) sec INR (<1.2) APTT (22.0-30.0) sec VBG pH 7.42 H (7.31-7.41) VBG pCO2 26 L (37-51) mmHg VBG HCO3 17 L (24-28) mmol/L Sodium (137-145) mmol/L Potassium (3.5-5.1) mmol/L Chloride (98-107) mmol/L Carbon Dioxide (22-30) mmol/L Anion Gap mmol/L BUN (9-20) mg/dL Creatinine (0.66-1.25) mg/dL Est GFR (CKD-EPI)AfAm (>60 ml/min/1.73 sqM) Est GFR (CKD-EPI)NonAf (>60 ml/min/1.73 sqM) Glucose (74-99) mg/dL POC Glucose (mg/dL) (70-110) mg/dL POC Glu [address] Office Assistant ID Plasma Lactic Acid Len (0.7-2.0) mmol/L Calcium (8.4-10.2) mg/dL Total Bilirubin (0.2-1.3) mg/dL AST (17-59) U/L ALT (4-49) U/L Alkaline Phosphatase (38-126) U/L Total Protein (6.3-8.2) g/dL Albumin (3.5-5.0) g/dL Amylase (30-110) U/L Lipase (23-300) U/L Urine Color Urine Appearance (Clear) Urine pH (5.0-8.0) Ur Specific [place] (1.001-1.035) Urine Protein (Negative) Urine Glucose (UA) (Negative) Urine Ketones (Negative) Urine Blood (Negative) Urine Nitrite (Negative) Urine Bilirubin (Negative) Urine Urobilinogen (<2.0) mg/dL Ur Leukocyte Esterase (Negative) Acetone, Qual (Negative) - EKG Data -: EKG Interpreted by Me EKG Comments: 12-lead Electrocardiogram Interpretation Note EKG was reviewed and interpreted by myself. 12-lead ECG performed at 0951 is interpreted by me as revealing tachycardia at a rate of 120 beats per minute. [place] is rightward deviated. CA interval is 160 ms, QRS duration is 92 ms, QTc is 394 ms.. There were no ST or T wave abnormalities to suggest myocardial ischemia or injury. R wave progression across the precordium was satisfactory. By my interpretation this EKG is non-diagnostic for acute ischemia. Critical Care Time Critical Care Time: Yes Total Critical Care Time: 32 Disposition Clinical Impression: DKA (diabetic ketoacidosis), Nausea and vomiting Disposition: ADMITTED IP TO THIS [facility] Condition: Serious Time of Disposition: 10:12
[2023-10-30 09:37] LABS: VBG PH 7.42 (7.31-7.41)
[2023-10-30 09:38] LABS: Partial Thromboplastin Time 22.5 sec (22.0-30.0); Prothrombin Time 10.6 sec (10.0-12.5)
[2023-10-30] MEDS: PANTOPRAZOLE 40 MG/10 ML VIAL IVP STA (09:39)
[2023-10-30] MEDS: METOCLOPRAMIDE 5 MG/ML 2 ML VIAL IVP STA (09:39)
[2023-10-30 09:43] LABS: ALT 64 U/L (4-49); AST 29 U/L (17-59); African American GFR (CKD) >90 (>60 ml/min/1.73 sqM); Albumin 4.5 g/dL (3.5-5.0); Alkaline Phosphatase 118 U/L (38-126); Amylase 48 U/L (30-110); Anion Gap 22 mmol/L; Blood Urea Nitrogen 17 mg/dL (9-20); Calcium 9.4 mg/dL (8.4-10.2); Carbon Dioxide 14 mmol/L (22-30); Chloride 100 mmol/L (98-107); Lipase 65 U/L (23-300); Non-African American GFR(CKD) >90 (>60 ml/min/1.73 sqM); Potassium 4.5 mmol/L (3.5-5.1); Sodium 136 mmol/L (137-145); Total Protein 6.7 g/dL (6.3-8.2)
[2023-10-30 09:49] LABS: Anisocytosis Slight; Basophils # (A) 0.1 k/uL (0-0.2); Basophils % (A) 1 %; Eosinophils # (A) 0.1 k/uL (0-0.7); Eosinophils % (A) 1 %; HCT 38.1 % (39.0-53.0); Hypochromasia Slight; Lymphocytes # (A) 1.3 k/uL (1.0-4.8); Lymphocytes % (A) 15 %; MCH 27.4 pg (25.0-35.0); MCHC 31.6 g/dL (31.0-37.0); MCV 86.6 fL (80.0-100.0); Mean Platelet Volume 7.6; Monocytes # (A) 0.4 k/uL (0-1.0); Monocytes % (A) 4 %; Neutrophils # (A) 6.6 k/uL (1.3-7.7); Neutrophils % (A) 78 %; Platelet Count 267 k/uL (150-450); RDW 17.2 % (11.5-15.5); WBC 8.4 k/uL (3.8-10.6)
[2023-10-30 09:58] LABS: Glucose 568 mg/dL (74-99)
[2023-10-30] MEDS ORDERED: DEXTROSE 50% SYRINGE 50 ML IVP PRN ×2 (10:09)
[2023-10-30] MEDS ORDERED: Potassium Replacement Protocol 1 EACH MISC MISCELLANE PRN (10:09)
[2023-10-30] MEDS ORDERED: Magnesium Replacement Protocol 1 EACH MISC MISCELLANE PRN (10:09)
[2023-10-30] MEDS ORDERED: ONDANSETRON 4 MG/2 ML VIAL IVP PRN (10:12)
[2023-10-30] MEDS ORDERED: NALOXONE 0.4 MG/ML 1 ML VIAL IV PRN (10:12)
[2023-10-30] MEDS: INSULIN REGULAR 100 UNIT in SODIUM CHLORIDE 0.9% 100 ML IV SCH (11:10)
[2023-10-30] MEDS: INSULIN REGULAR BOLUS (FROM DRIP BAG) IV ONE (11:15)
[2023-10-30] MEDS: SODIUM CHLORIDE 0.9% 1,000 ML IV SCH (11:15)
[2023-10-30] MEDS: D5-0.45% NACL WITH KCL 20MEQ/L 1,000 ML IV SCH ×2 (12:04→16:51)
[2023-10-30 12:11] LABS: Glucose,Whole Blood 395 mg/dL (70-110)
[2023-10-30 12:20] LABS: Appearance,Urine Clear (Clear); Bilirubin,Urine Negative (Negative); Blood,Urine Negative (Negative); Color,Urine Colorless; Glucose,Urine (UA) 4+ (Negative); Leukocyte Esterase,Urine Negative (Negative); Nitrite,Urine Negative (Negative); PH, Urine 5.5 (5.0-8.0); Protein,Urine Negative (Negative); Specific Gravity,Urine 1.031 (1.001-1.035); Urobilinogen,Urine <2.0 mg/dL (<2.0)
[2023-10-30 12:23] LABS: African American GFR (CKD) >90 (>60 ml/min/1.73 sqM); Anion Gap 24 mmol/L; Blood Urea Nitrogen 18 mg/dL (9-20); Carbon Dioxide 13 mmol/L (22-30); Chloride 100 mmol/L (98-107); Glucose 397 mg/dL (74-99); Non-African American GFR(CKD) >90 (>60 ml/min/1.73 sqM); Potassium 3.8 mmol/L (3.5-5.1); Sodium 137 mmol/L (137-145)
[2023-10-30 12:39] LABS: Ketones,Urine 4+ (Negative)
[2023-10-30 13:12] LABS: Glucose,Whole Blood 300 mg/dL (70-110)
[2023-10-30 14:02] LABS: Glucose,Whole Blood 242 mg/dL (70-110)
[2023-10-30 16:08] LABS: Glucose,Whole Blood 199 mg/dL (70-110)
[2023-10-30 16:33] LABS: African American GFR (CKD) >90 (>60 ml/min/1.73 sqM); Anion Gap 9 mmol/L; Blood Urea Nitrogen 13 mg/dL (9-20); Carbon Dioxide 25 mmol/L (22-30); Chloride 101 mmol/L (98-107); Glucose 186 mg/dL (74-99); Non-African American GFR(CKD) >90 (>60 ml/min/1.73 sqM); Potassium 3.7 mmol/L (3.5-5.1); Sodium 135 mmol/L (137-145)
[2023-10-30] MEDS: HEPARIN SODIUM,PORCINE 5,000 UNIT/ML 1 ML VIAL SQ SCH (16:51)
[2023-10-30 17:14] LABS: Glucose,Whole Blood 148 mg/dL (70-110)
[2023-10-30] MEDS: INSULIN ASPART (NovoLOG) 100 UNIT/ML VIAL SQ SCH (17:40)
[2023-10-30] MEDS: INSULIN DETEMIR (LEVEMIR) 100 UNIT/ML SYR SQ SCH (17:41)
--- NOTE | 2023-10-31 00:40 | HP ---
HISTORY AND PHYSICAL CHIEF COMPLAINT: DKA. HISTORY OF PRESENT ILLNESS: Another admission for this young man, who just left [facility] against medical advice yesterday morning. He does this repeatedly. He goes home, does not take his insulin, and comes back in a DKA. In the emergency room today, his anion gap is 24, blood sugar is 585. REVIEW OF SYSTEMS: He is lethargic, but has no other complaints. He is nauseated. Past medical history, family history and personal and social histories are all otherwise unchanged from his frequent admissions. PHYSICAL EXAMINATION: VITAL SIGNS: Blood pressure is 116/74 with a pulse of 105, respirations of 36, and he is afebrile. GENERAL: He appeared to be dehydrated and pale. HEAD, EARS, EYES, NOSE, MOUTH, AND THROAT: Normal. NECK: Veins not distended. CHEST: Clear. CARDIAC: Normal. ABDOMEN: Soft and nontender. EXTREMITIES: Normal. IMPRESSION: 1. DKA. 2. Dehydration. 3. Depression. 4. Gastroparesis. 5. Peripheral neuropathy. 6. Noncompliant patient. 7. History of lynne arrhythmia. 8. Uncontrolled type 1 insulin-dependent diabetes mellitus. PLAN: 1. Bedrest. 2. IV fluids. 3. DKA protocol. MMODL / IJN: [id number] /
[2023-10-31] MEDS ORDERED: PANTOPRAZOLE 40 MG/10 ML VIAL IV SCH (09:00)
--- NOTE | 2023-11-03 05:31 | DS ---
DISCHARGE SUMMARY CHIEF COMPLAINT: Uncontrolled diabetes and DKA. HISTORY OF PRESENT ILLNESS AND PHYSICAL EXAMINATION: Details of this man's history and physical can be found in the initial workup. LABORATORY STUDIES: While he was in the hospital, he had laboratory studies, details of which can be found in the laboratory section of his chart. COURSE IN THE HOSPITAL: After admission, he was placed on bedrest, started on intravenous fluids and DKA protocol. Blood sugars came down. He was improving and then he signed himself out against medical advice once again. FINAL DIAGNOSES: 1. Diabetic ketoacidosis. 2. Uncontrolled insulin-dependent type 1 diabetes mellitus. 3. Noncompliant patient. 4. Depression. 5. History of gastroparesis. 6. History of peripheral neuropathy. 7. History of lynne arrhythmia. OPERATIONS: None. CONSULTATIONS: None. MMODL / IJN: [id number] /
== END 2023-10-30 18:54 | disposition left against medical advice (07) | DRG 420 ==
LOC: EC 09:00 → 3SCARD 10:13
PROVIDERS: ADMIT Family Medicine; ATTEND Family Medicine
DX: E10.10 Type 1 diabetes mellitus with ketoacidosis without coma (principal); Z79.4 Long term (current) use of insulin; E10.43 Type 1 diabetes mellitus with diabetic autonomic (poly)neuropathy; E86.0 Dehydration; F17.200 Nicotine dependence, unspecified, uncomplicated; F32.A Depression, unspecified; E10.42 Type 1 diabetes mellitus with diabetic polyneuropathy; I49.8 Other specified cardiac arrhythmias; K31.84 Gastroparesis; Z91.199 Patient's noncompliance with other medical treatment and regimen due to unspecified reason; T38.3X6A Underdosing of insulin and oral hypoglycemic [antidiabetic] drugs, initial encounter; Z91.128 Patient's intentional underdosing of medication regimen for other reason; Z79.899 Other long term (current) drug therapy
CPT/HCPCS: 36415; 80051; 80053; 81003; 82009; 82150; 82565; 82803; 82947; 83605; 83690; 84100; 84520; 85025; 85610; 85730; 93005; 96361; 96365; 96366; 96375; 99291

== ENCOUNTER 2023-11-01 14:07 | Emergency (ER) | payer OTHER ==
[2023-11-01 14:13] VITALS: TEMP 97.7
[2023-11-01 14:21] LABS: Glucose,Whole Blood 267 mg/dL (70-110)
[2023-11-01] MEDS: SODIUM CHLORIDE 0.9% 2,000 ML IV STA (14:30)
--- NOTE | 2023-11-01 14:37 | ED ---
General Adult HPI - General Chief complaint: Nausea/Vomiting/Diarrhea Stated complaint: high blood sugar Time Seen by Provider: 11/01/23 14:08 Source: patient, RN notes reviewed Mode of arrival: ambulatory Limitations: no limitations - History of Present Illness Initial comments: 28-year-old male presents emergency department chief complaint abdominal pain, hyperglycemia, nausea. Patient states started having creased abdominal pain and nausea without vomiting states his blood sugar has been labile. Patient is well-known to the emergency department with history of diabetes uncontrolled with chronic stomach issues. Patient denies any fever chills chest pain shortness of breath no other complaints. - Related Data Home Medications Medication Instructions Recorded Confirmed Ergocalciferol [Vitamin D2 (1250 1,250 mcg PO Q30D 04/29/23 11/01/23 Mcg = 24925 Iu)] Famotidine [Pepcid] 20 mg PO BID 04/29/23 11/01/23 Gabapentin 600 mg PO TID 04/29/23 11/01/23 Mirtazapine 7.5 mg PO HS 04/29/23 11/01/23 Insulin Glargine,Hum.rec.anlog 25 units SQ DAILY 09/07/23 11/01/23 [Insulin Glargine] Insulin Lispro 7 units SQ AC-TID 09/17/23 11/01/23 Ferrous Sulfate [Feosol] 325 mg PO DAILY 10/09/23 11/01/23 Omeprazole 20 mg PO BID 10/30/23 11/01/23 Previous Rx's Medication Instructions Recorded Atorvastatin [Lipitor] 20 mg PO HS #30 tab 09/26/23 Losartan [Cozaar] 25 mg PO DAILY #30 tab 09/26/23 Metoclopramide [Reglan] 10 mg PO TID PRN #15 tab 11/01/23 Allergies Allergy/AdvReac Type Severity Reaction Status Date / Time No Known Allergies Allergy Verified 11/01/23 14:53 Review of Systems ROS Statement: Those systems with pertinent positive or pertinent negative responses have been documented in the HPI. ROS Other: All systems not noted in ROS Statement are negative. Past Medical History Past Medical History: Asthma, Diabetes Mellitus, Neurologic Disorder, Skin Disorder Additional Past Medical History / Comment(s): IDDM type I, neuropathy bilateral feet, DKA, eczema. History of Any Multi-Drug Resistant Organisms: None Reported Past Surgical History: Adenoidectomy Additional Past Surgical History / Comment(s): gastritis Past Anesthesia/Blood Transfusion Reactions: No Reported Reaction Past Psychological History: Anxiety, Depression Smoking Status: Current every day smoker Past Alcohol Use History: None Reported Past Drug Use History: Marijuana - Past Family History Mother Family Medical History: CVA/TIA Additional Family Medical History / Comment(s): TIA Father Family Medical History: Hyperlipidemia, Hypertension Additional Family Medical History / Comment(s): . General Exam Limitations: no limitations General appearance: alert, in no apparent distress Head exam: Present: atraumatic, normocephalic, normal inspection Neck exam: Present: normal inspection. Absent: tenderness, meningismus, lymphadenopathy Respiratory exam: Present: normal lung sounds bilaterally. Absent: respiratory distress, wheezes, rales, rhonchi, stridor Cardiovascular Exam: Present: normal rhythm, tachycardia, normal heart sounds. Absent: systolic murmur, diastolic murmur, rubs, gallop, clicks GI/Abdominal exam: Present: soft, tenderness, normal bowel sounds. Absent: distended, guarding, rebound, rigid Back exam: Absent: CVA tenderness (R), CVA tenderness (L) Neurological exam: Present: alert Course Vital Signs 11/01/23 11/01/23 14:11 15:13 Temperature 97.7 F Pulse Rate 122 H 110 H Respiratory 20 16 Rate Blood Pressure 119/76 104/74 O2 Sat by Pulse 99 98 Oximetry EKG Findings - EKG Comments: EKG Findings:: EKG performed at 14: 35 sinus rhythm with a rate of 98 TN 149 QRS 98 QT/QTc 343/398 - EKG Results: EKG: interpreted by JOANNE Medical Decision Making - Medical Decision Making Was pt. sent in by a medical professional or institution (, PA, STEEL INSPECTOR, urgent care, hospital, or group home...) When possible be specific @ -No Did you speak to anyone other than the patient for history (EMS, parent, family, police, friend...)? What history was obtained from this source @ -No Did you review nursing and triage notes (agree or disagree)? Why? @ -I reviewed and agree with nursing and triage notes Were old charts reviewed (outside hosp., previous admission, EMS record, old EKG, old radiological studies, urgent care reports/EKG's, group home records)? Report findings @ -Reviewed recent admission records including CBC, blood gas, Differential Diagnosis (chest pain, altered mental status, abdominal pain women, abdominal pain men, vaginal bleeding, weakness, fever, dyspnea, syncope, headache, dizziness, GI bleed, back pain, seizure, CVA, palpatations, mental health, musculoskeletal)? @ -Hyperglycemia, differential Abdominal Pain Men: Appendicitis, cholecystitis, diverticulosis, ischemic bowel, pancreatitis, hepatitis, UTI, gastroenteritis, AAA, incarcerated hernia, bowel obstruction, constipation, inflammatory bowel, hepatitis, peptic ulcer disease, splenic infarction, perforated viscus, testicular torsion, this is not meant to be an all-inclusive list EKG interpreted by me (3pts min.). @ -As above X-rays interpreted by me (1pt min.). @ -None done CT interpreted by me (1pt min.). @ -None done U/S interpreted by me (1pt. min.). @ -None done What testing was considered but not performed or refused? (CT, X-rays, U/S, labs)? Why? @ -None What meds were considered but not given or refused? Why? @ -None Did you discuss the management of the patient with other professionals (professionals i.e. , PA, STEEL INSPECTOR, lab, RT, psych nurse, social studies department chair, commissioning specialist, t eacher, personnel training officer, pillowcase turner)? Give summary @ -No Was smoking cessation discussed for >3mins.? @ -No Was critical care preformed (if so, how long)? @ -No Were there social determinants of health that impacted care today? How? (Homelessness, low income, unemployed, alcoholism, drug addiction, transportation, low edu. Level, literacy, decrease access to med. care, intermediate, rehab)? @ -No Was there de-escalation of care discussed even if they declined (Discuss DNR or withdrawal of care, Hospice)? DNR status @ -No What co-morbidities impacted this encounter? (DM, HTN, Smoking, COPD, CAD, Cance r, CVA, ARF, Chemo, Hep., AIDS, mental health diagnosis, sleep apnea, morbid obesity)? @ -Diabetes Was patient admitted / discharged? Hospital course, mention meds given and route, prescriptions, significant lab abnormalities, going to OR and other pertinent info. @ -Discharge patient has pain related fluids antiemetics and analgesics. Patient does have mild hypoglycemia which was corrected patient is not currently acidotic patient is not in DKA. Patient be discharged with antiemetics and close follow-up return parameters jovita. Undiagnosed new problem with uncertain prognosis? @ -No Drug Therapy requiring intensive monitoring for toxicity (Heparin, Nitro, Insulin, Cardizem)? @ -No Were any procedures done? @ -No Diagnosis/symptom? @ -Hyperglycemia, abdominal pain Acute, or Chronic, or Acute on Chronic? @ -Acute Uncomplicated (without systemic symptoms) or Complicated (systemic symptoms)? @ -uncomplicated Side effects of treatment? @ -No Exacerbation, Progression, or Severe Exacerbation? @ -No Poses a threat to life or bodily function? How? (Chest pain, [place], [place], pneumonia, PE, COPD, DKA, ARF, appy, cholecystitis, CVA, Diverticulitis, Homicidal, Suicidal, threat to staff... and all critical care pts) @ -No - Lab Data Result diagrams: 11/01/23 14:30 11/01/23 14:30 Lab Results 11/01/23 11/01/23 11/01/23 Range/Units 14:11 14:30 14:30 WBC 10.8 H (3.8-10.6) k/uL RBC 4.50 (4.30-5.90) m/uL Hgb 12.5 L (13.0-17.5) gm/dL Hct 38.3 L (39.0-53.0) % MCV 85.0 (80.0-100.0) fL MCH 27.8 (25.0-35.0) pg MCHC 32.6 (31.0-37.0) g/dL RDW 17.9 H (11.5-15.5) % Plt Count 305 (150-450) k/uL MPV 7.3 Neutrophils % 69 % Lymphocytes % 22 % Monocytes % 6 % Eosinophils % 1 % Basophils % 1 % Neutrophils # 7.5 (1.3-7.7) k/uL Lymphocytes # 2.4 (1.0-4.8) k/uL Monocytes # 0.6 (0-1.0) k/uL Eosinophils # 0.1 (0-0.7) k/uL Basophils # 0.1 (0-0.2) k/uL Anisocytosis Slight VBG pH (7.31-7.41) VBG pCO2 (37-51) mmHg VBG HCO3 (24-28) mmol/L Sodium 135 L (137-145) mmol/L Potassium 4.2 (3.5-5.1) mmol/L Chloride 97 L (98-107) mmol/L Carbon Dioxide 27 (22-30) mmol/L Anion Gap 11 mmol/L BUN 14 (9-20) mg/dL Creatinine 0.63 L (0.66-1.25) mg/dL Est GFR (CKD-EPI)AfAm >90 (>60 ml/min/1.73 sqM) Est GFR (CKD-EPI)NonAf >90 (>60 ml/min/1.73 sqM) Glucose 291 H (74-99) mg/dL POC Glucose (mg/dL) 267 H (70-110) mg/dL POC Glu Csr Technician ID Mifflin, Marcus Plasma Lactic Acid Len (0.7-2.0) mmol/L Calcium 8.9 (8.4-10.2) mg/dL Magnesium 1.8 (1.6-2.3) mg/dL Total Bilirubin 0.9 (0.2-1.3) mg/dL AST 21 (17-59) U/L ALT 42 (4-49) U/L Alkaline Phosphatase 118 (38-126) U/L Total Protein 6.9 (6.3-8.2) g/dL Albumin 4.5 (3.5-5.0) g/dL Amylase 50 (30-110) U/L Acetone, Qual Positive (Negative) 11/01/23 11/01/23 11/01/23 Range/Units 14:30 14:30 15:26 WBC (3.8-10.6) k/uL RBC (4.30-5.90) m/uL Hgb (13.0-17.5) gm/dL Hct (39.0-53.0) % MCV (80.0-100.0) fL MCH (25.0-35.0) pg MCHC (31.0-37.0) g/dL RDW (11.5-15.5) % Plt Count (150-450) k/uL MPV Neutrophils % % Lymphocytes % % Monocytes % % Eosinophils % % Basophils % % Neutrophils # (1.3-7.7) k/uL Lymphocytes # (1.0-4.8) k/uL Monocytes # (0-1.0) k/uL Eosinophils # (0-0.7) k/uL Basophils # (0-0.2) k/uL Anisocytosis VBG pH 7.48 H (7.31-7.41) VBG pCO2 39 (37-51) mmHg VBG HCO3 29 H (24-28) mmol/L Sodium (137-145) mmol/L Potassium (3.5-5.1) mmol/L Chloride (98-107) mmol/L Carbon Dioxide (22-30) mmol/L Anion Gap mmol/L BUN (9-20) mg/dL Creatinine (0.66-1.25) mg/dL Est GFR (CKD-EPI)AfAm (>60 ml/min/1.73 sqM) Est GFR (CKD-EPI)NonAf (>60 ml/min/1.73 sqM) Glucose (74-99) mg/dL POC Glucose (mg/dL) 229 H (70-110) mg/dL POC Glu Csr Technician ID Renee Spicer Plasma Lactic Acid Len 2.0 (0.7-2.0) mmol/L Calcium (8.4-10.2) mg/dL Magnesium (1.6-2.3) mg/dL Total Bilirubin (0.2-1.3) mg/dL AST (17-59) U/L ALT (4-49) U/L Alkaline Phosphatase (38-126) U/L Total Protein (6.3-8.2) g/dL Albumin (3.5-5.0) g/dL Amylase (30-110) U/L Acetone, Qual (Negative) Disposition Clinical Impression: Abdominal pain, Nausea, Hyperglycemia Disposition: HOME SELF-CARE Condition: Stable Instructions (If sedation given, give patient instructions): Abdominal Pain (ED) Additional Instructions: Please return to the Emergency Department if symptoms worsen or any other concerns. Prescriptions: Metoclopramide [Reglan] 10 mg PO TID PRN #15 tab PRN Reason: Nausea Is patient prescribed a controlled substance at d/c from ED?: No Referrals: Brown Valenzuela MD [Primary Care Provider] - 1-2 days Time of Disposition: 15:37
[2023-11-01 14:52] LABS: VBG PH 7.48 (7.31-7.41)
[2023-11-01 15:02] LABS: ALT 42 U/L (4-49); AST 21 U/L (17-59); African American GFR (CKD) >90 (>60 ml/min/1.73 sqM); Albumin 4.5 g/dL (3.5-5.0); Alkaline Phosphatase 118 U/L (38-126); Amylase 50 U/L (30-110); Anion Gap 11 mmol/L; Blood Urea Nitrogen 14 mg/dL (9-20); Calcium 8.9 mg/dL (8.4-10.2); Carbon Dioxide 27 mmol/L (22-30); Chloride 97 mmol/L (98-107); Glucose 291 mg/dL (74-99); Magnesium 1.8 mg/dL (1.6-2.3); Non-African American GFR(CKD) >90 (>60 ml/min/1.73 sqM); Potassium 4.2 mmol/L (3.5-5.1); Sodium 135 mmol/L (137-145); Total Bilirubin 0.9 mg/dL (0.2-1.3); Total Protein 6.9 g/dL (6.3-8.2)
[2023-11-01 15:21] VITALS: RESP 16
[2023-11-01 15:27] LABS: Anisocytosis Slight; Basophils # (A) 0.1 k/uL (0-0.2); Basophils % (A) 1 %; Eosinophils # (A) 0.1 k/uL (0-0.7); Eosinophils % (A) 1 %; HCT 38.3 % (39.0-53.0); HGB 12.5 gm/dL (13.0-17.5); Lymphocytes # (A) 2.4 k/uL (1.0-4.8); Lymphocytes % (A) 22 %; MCH 27.8 pg (25.0-35.0); MCHC 32.6 g/dL (31.0-37.0); Mean Platelet Volume 7.3; Monocytes # (A) 0.6 k/uL (0-1.0); Monocytes % (A) 6 %; Neutrophils # (A) 7.5 k/uL (1.3-7.7); Neutrophils % (A) 69 %; Platelet Count 305 k/uL (150-450); RDW 17.9 % (11.5-15.5); WBC 10.8 k/uL (3.8-10.6)
[2023-11-01 15:28] LABS: Glucose,Whole Blood 229 mg/dL (70-110)
[2023-11-01] MEDS: MORPHINE SULFATE 4 MG/ML SYRINGE IVP STA (15:46)
[2023-11-01] MEDS: ONDANSETRON 4 MG/2 ML VIAL IVP STA (15:47)
[2023-11-01] MEDS: INSULIN REGULAR 100 UNIT/ML VIAL (IV) IV ONE ×2 (15:49→15:57)
[2023-11-01 16:08] LABS: Glucose,Whole Blood 231 mg/dL (70-110)
[2023-11-01 16:21] LABS: Glucose,Whole Blood 222 mg/dL (70-110)
[2023-11-01 16:28] VITALS: BP 105/75; PULSE 99
== END 2023-11-01 16:35 | disposition home or self-care (01) ==
LOC: EC 14:07
DX: E11.65 Type 2 diabetes mellitus with hyperglycemia (principal); R11.2 Nausea with vomiting, unspecified; R10.9 Unspecified abdominal pain; F17.200 Nicotine dependence, unspecified, uncomplicated; F12.90 Cannabis use, unspecified, uncomplicated
CPT/HCPCS: 99284; 96374; 96375; 96361; 36415; 93005; 80053; 82150; 82803; 82009; 83605; 83735; 85025; J2270; J2405

== ENCOUNTER 2023-11-02 12:13 | Inpatient (IN) | payer OTHER ==
[2023-11-02 12:21] LABS: Glucose,Whole Blood 452 mg/dL (70-110)
[2023-11-02 12:37] LABS: Anisocytosis Slight; Basophils # (A) 0.1 k/uL (0-0.2); Basophils % (A) 1 %; Eosinophils # (A) 0.1 k/uL (0-0.7); Eosinophils % (A) 1 %; HCT 40.8 % (39.0-53.0); Hypochromasia Slight; Lymphocytes # (A) 2.2 k/uL (1.0-4.8); Lymphocytes % (A) 23 %; MCH 27.9 pg (25.0-35.0); MCHC 31.8 g/dL (31.0-37.0); MCV 87.6 fL (80.0-100.0); Mean Platelet Volume 7.4; Monocytes # (A) 0.3 k/uL (0-1.0); Monocytes % (A) 3 %; Neutrophils # (A) 6.7 k/uL (1.3-7.7); Neutrophils % (A) 70 %; Platelet Count 359 k/uL (150-450); RBC 4.66 m/uL (4.30-5.90); RDW 17.9 % (11.5-15.5); WBC 9.5 k/uL (3.8-10.6)
[2023-11-02 12:39] LABS: VBG PH 7.47 (7.31-7.41)
[2023-11-02] MEDS: KETOROLAC 15 MG/ML 1 ML VIAL IVP STA (12:40)
[2023-11-02] MEDS: SODIUM CHLORIDE 0.9% 2,000 ML IV STA (12:42)
[2023-11-02 14:11] LABS: ALT 36 U/L (4-49); AST 22 U/L (17-59); African American GFR (CKD) >90 (>60 ml/min/1.73 sqM); Albumin 4.8 g/dL (3.5-5.0); Alkaline Phosphatase 140 U/L (38-126); Anion Gap 23 mmol/L; Blood Urea Nitrogen 16 mg/dL (9-20); Calcium 9.3 mg/dL (8.4-10.2); Carbon Dioxide 15 mmol/L (22-30); Chloride 94 mmol/L (98-107); Glucose 489 mg/dL (74-99); Lipase 48 U/L (23-300); Non-African American GFR(CKD) >90 (>60 ml/min/1.73 sqM); Potassium 5.1 mmol/L (3.5-5.1); Sodium 132 mmol/L (137-145); Total Bilirubin 1.2 mg/dL (0.2-1.3); Total Protein 7.2 g/dL (6.3-8.2)
[2023-11-02] MEDS: INSULIN REGULAR 100 UNIT/ML VIAL (IV) IV ONE (14:11)
[2023-11-02 14:51] LABS: Glucose,Whole Blood 275 mg/dL (70-110)
[2023-11-02] MEDS: SODIUM CHLORIDE 0.9% 500 ML 500 ML IV ONE (15:37)
--- NOTE | 2023-11-02 15:44 | ED ---
General Adult HPI - General Chief complaint: Nausea/Vomiting/Diarrhea Stated complaint: Abdominal Pain Time Seen by Provider: 11/02/23 12:15 Source: patient, EMS, RN notes reviewed Mode of arrival: EMS Limitations: no limitations - History of Present Illness Initial comments: 28-year-old male presents emergency department chief complaint of nausea vomiti ng hyperglycemia abdominal pain. Patient seen here yesterday for abdominal pain he is well-known to the emergency department with chronic abdominal issues, gastroparesis, diabetes uncontrolled. Patient did not give himself any insulin today. Patient states he has diffuse abdominal pain no fevers no chest pain no palpitations. - Related Data Home Medications Medication Instructions Recorded Confirmed Ergocalciferol [Vitamin D2 (1250 1,250 mcg PO Q30D 04/29/23 11/01/23 Mcg = 20667 Iu)] Famotidine [Pepcid] 20 mg PO BID 04/29/23 11/01/23 Gabapentin 600 mg PO TID 04/29/23 11/01/23 Mirtazapine 7.5 mg PO HS 04/29/23 11/01/23 Insulin Glargine,Hum.rec.anlog 25 units SQ DAILY 09/07/23 11/01/23 [Insulin Glargine] Insulin Lispro 7 units SQ AC-TID 09/17/23 11/01/23 Ferrous Sulfate [Feosol] 325 mg PO DAILY 10/09/23 11/01/23 Omeprazole 20 mg PO BID 10/30/23 11/01/23 Previous Rx's Medication Instructions Recorded Atorvastatin [Lipitor] 20 mg PO HS #30 tab 09/26/23 Losartan [Cozaar] 25 mg PO DAILY #30 tab 09/26/23 Metoclopramide [Reglan] 10 mg PO TID PRN #15 tab 11/01/23 Allergies Allergy/AdvReac Type Severity Reaction Status Date / Time No Known Allergies Allergy Verified 11/01/23 14:53 Review of Systems ROS Statement: Those systems with pertinent positive or pertinent negative responses have been documented in the HPI. ROS Other: All systems not noted in ROS Statement are negative. Past Medical History Past Medical History: Asthma, Diabetes Mellitus, Neurologic Disorder, Skin Disorder Additional Past Medical History / Comment(s): IDDM type I, neuropathy bilateral feet, DKA, eczema. History of Any Multi-Drug Resistant Organisms: None Reported Past Surgical History: Adenoidectomy Additional Past Surgical History / Comment(s): gastritis Past Anesthesia/Blood Transfusion Reactions: No Reported Reaction Past Psychological History: Anxiety, Depression Smoking Status: Current every day smoker Past Alcohol Use History: None Reported Past Drug Use History: Marijuana - Past Family History Mother Family Medical History: CVA/TIA Additional Family Medical History / Comment(s): TIA Father Family Medical History: Hyperlipidemia, Hypertension Additional Family Medical History / Comment(s): . General Exam Limitations: no limitations General appearance: alert, in no apparent distress Head exam: Present: atraumatic, normocephalic, normal inspection Eye exam: Present: normal appearance, PERRL, EOMI. Absent: scleral icterus, conjunctival injection, periorbital swelling ENT exam: Present: normal exam, normal oropharynx, mucous membranes moist Neck exam: Present: normal inspection, full ROM. Absent: tenderness, me ningismus, lymphadenopathy Respiratory exam: Present: normal lung sounds bilaterally. Absent: respiratory distress, wheezes, rales, rhonchi, stridor Cardiovascular Exam: Present: normal rhythm, tachycardia, normal heart sounds. Absent: systolic murmur, diastolic murmur, rubs, gallop, clicks GI/Abdominal exam: Present: soft, tenderness, normal bowel sounds. Absent: distended, guarding, rebound, rigid Back exam: Absent: CVA tenderness (R), CVA tenderness (L) Neurological exam: Present: alert Skin exam: Present: warm, dry, intact, normal color. Absent: rash Course Vital Signs 11/02/23 11/02/23 12:17 13:20 Temperature 97.1 F L Pulse Rate 131 H 101 H Respiratory 18 Rate Blood Pressure 128/88 120/73 O2 Sat by Pulse 100 Oximetry Medical Decision Making - Medical Decision Making Was pt. sent in by a medical professional or institution (, PA, OPERATIONS CONTROLLER, urgent care, hospital, or alf...) When possible be specific @ -No Did you speak to anyone other than the patient for history (EMS, parent, family, police, friend...)? What history was obtained from this source @ -No Did you review nursing and triage notes (agree or disagree)? Why? @ -I reviewed and agree with nursing and triage notes Were old charts reviewed (outside hosp., previous admission, EMS record, old EKG, old radiological studies, urgent care reports/EKG's, alf records)? Report findings @ -No old charts were reviewed Differential Diagnosis (chest pain, altered mental status, abdominal pain women, abdominal pain men, vaginal bleeding, weakness, fever, dyspnea, syncope, headache, dizziness, GI bleed, back pain, seizure, CVA, palpatations, mental health, musculoskeletal)? @ -Hyperglycemia, DKA, dehydration, nausea vomiting, abdominal pain EKG interpreted by me (3pts min.). @ -None X-rays interpreted by me (1pt min.). @ -None done CT interpreted by me (1pt min.). @ -None done U/S interpreted by me (1pt. min.). @ -None done What testing was considered but not performed or refused? (CT, X-rays, U/S, labs)? Why? @ -None What meds were considered but not given or refused? Why? @ -None Did you discuss the management of the patient with other professionals (professionals i.e. , PA, OPERATIONS CONTROLLER, lab, RT, psych nurse, social worker clinical, insole bottom filler, teacher, facility security officer, case finisher)? Give summary @ -Dr. Valenzuela for admission Was smoking cessation discussed for >3mins.? @ -No Was critical care preformed (if so, how long)? @ -35 mins Were there social determinants of health that impacted care today? How? (Homelessness, low income, unemployed, alcoholism, drug addiction, transportation, low edu. Level, literacy, decrease access to med. care, retirement, rehab)? @ -No Was there de-escalation of care discussed even if they declined (Discuss DNR or withdrawal of care, Hospice)? DNR status @ -No What co-morbidities impacted this encounter? (DM, HTN, Smoking, COPD, CAD, Cancer, CVA, ARF, Chemo, Hep., AIDS, mental health diagnosis, sleep apnea, morbid obesity)? @ -Diabetes Was patient admitted / discharged? Hospital course, mention meds given and route, prescriptions, significant lab abnormalities, going to OR and other pertinent info. @ -Admitted the patient found to have mild DKA, hyperglycemia, CO2 15, anion gap. Patient was given 2 and half liters of fluid, started maintenance fluids, maintenance insulin patient will maintain on antiemetics and further monitoring treatment Undiagnosed new problem with uncertain prognosis? @ -No Drug Therapy requiring intensive monitoring for toxicity (Heparin, Nitro, Insulin, Cardizem)? @ -No Were any procedures done? @ -No Diagnosis/symptom? @ -DKA Acute, or Chronic, or Acute on Chronic? @ -Acute Uncomplicated (without systemic symptoms) or Complicated (systemic symptoms)? @ -Complicated Side effects of treatment? @ -No Exacerbation, Progression, or Severe Exacerbation? @ -No Poses a threat to life or bodily function? How? (Chest pain, [place], [place], pneumonia, PE, COPD, DKA, ARF, appy, cholecystitis, CVA, Diverticulitis, Homicidal, Suicidal, threat to staff... and all critical care pts) @ -Yes DKA, possible severe metabolic acidosis - Lab Data Result diagrams: 11/02/23 12:26 11/02/23 12:26 Lab Results 11/02/23 11/02/23 11/02/23 Range/Units 12:20 12:26 12:26 WBC 9.5 (3.8-10.6) k/uL RBC 4.66 (4.30-5.90) m/uL Hgb 13.0 (13.0-17.5) gm/dL Hct 40.8 (39.0-53.0) % MCV 87.6 (80.0-100.0) fL MCH 27.9 (25.0-35.0) pg MCHC 31.8 (31.0-37.0) g/dL RDW 17.9 H (11.5-15.5) % Plt Count 359 (150-450) k/uL MPV 7.4 Neutrophils % 70 % Lymphocytes % 23 % Monocytes % 3 % Eosinophils % 1 % Basophils % 1 % Neutrophils # 6.7 (1.3-7.7) k/uL Lymphocytes # 2.2 (1.0-4.8) k/uL Monocytes # 0.3 (0-1.0) k/uL Eosinophils # 0.1 (0-0.7) k/uL Basophils # 0.1 (0-0.2) k/uL Hypochromasia Slight Anisocytosis Slight VBG pH (7.31-7.41) VBG pCO2 (37-51) mmHg VBG HCO3 (24-28) mmol/L Sodium 132 L (137-145) mmol/L Potassium 5.1 (3.5-5.1) mmol/L Chloride 94 L (98-107) mmol/L Carbon Dioxide 15 L (22-30) mmol/L Anion Gap 23 mmol/L BUN 16 (9-20) mg/dL Creatinine 0.74 (0.66-1.25) mg/dL Est GFR (CKD-EPI)AfAm >90 (>60 ml/min/1.73 sqM) Est GFR (CKD-EPI)NonAf >90 (>60 ml/min/1.73 sqM) Glucose 489 H (74-99) mg/dL POC Glucose (mg/dL) 452 H (70-110) mg/dL POC Glu Power Cleaner Operator ID Belval, Clementina Plasma Lactic Acid Len (0.7-2.0) mmol/L Calcium 9.3 (8.4-10.2) mg/dL Total Bilirubin 1.2 (0.2-1.3) mg/dL AST 22 (17-59) U/L ALT 36 (4-49) U/L Alkaline Phosphatase 140 H (38-126) U/L Total Protein 7.2 (6.3-8.2) g/dL Albumin 4.8 (3.5-5.0) g/dL Lipase 48 (23-300) U/L Acetone, Qual Positive (Negative) 11/02/23 11/02/23 11/02/23 Range/Units 12:26 12:26 14:49 WBC (3.8-10.6) k/uL RBC (4.30-5.90) m/uL Hgb (13.0-17.5) gm/dL Hct (39.0-53.0) % MCV (80.0-100.0) fL MCH (25.0-35.0) pg MCHC (31.0-37.0) g/dL RDW (11.5-15.5) % Plt Count (150-450) k/uL MPV Neutrophils % % Lymphocytes % % Monocytes % % Eosinophils % % Basophils % % Neutrophils # (1.3-7.7) k/uL Lymphocytes # (1.0-4.8) k/uL Monocytes # (0-1.0) k/uL Eosinophils # (0-0.7) k/uL Basophils # (0-0.2) k/uL Hypochromasia Anisocytosis VBG pH 7.47 H (7.31-7.41) VBG pCO2 25 L (37-51) mmHg VBG HCO3 18 L (24-28) mmol/L Sodium (137-145) mmol/L Potassium (3.5-5.1) mmol/L Chloride (98-107) mmol/L Carbon Dioxide (22-30) mmol/L Anion Gap mmol/L BUN (9-20) mg/dL Creatinine (0.66-1.25) mg/dL Est GFR (CKD-EPI)AfAm (>60 ml/min/1.73 sqM) Est GFR (CKD-EPI)NonAf (>60 ml/min/1.73 sqM) Glucose (74-99) mg/dL POC Glucose (mg/dL) 275 H (70-110) mg/dL POC Glu Power Cleaner Operator ID Clementina Alexander Plasma Lactic Acid Len 3.1 H* (0.7-2.0) mmol/L Calcium (8.4-10.2) mg/dL Total Bilirubin (0.2-1.3) mg/dL AST (17-59) U/L ALT (4-49) U/L Alkaline Phosphatase (38-126) U/L Total Protein (6.3-8.2) g/dL Albumin (3.5-5.0) g/dL Lipase (23-300) U/L Acetone, Qual (Negative) Critical Care Time Critical Care Time: Yes Total Critical Care Time: 35 Disposition Clinical Impression: DKA (diabetic ketoacidosis), Nausea & vomiting Disposition: ADMITTED IP TO THIS [facility] Condition: Fair Referrals: Brown Valenzuela MD [Primary Care Provider] - 1-2 days Time of Disposition: 16:03
[2023-11-02 16:18] LABS: Appearance,Urine Clear (Clear); Bilirubin,Urine Negative (Negative); Blood,Urine Negative (Negative); Color,Urine Colorless; Glucose,Urine (UA) 4+ (Negative); Leukocyte Esterase,Urine Negative (Negative); Nitrite,Urine Negative (Negative); PH, Urine 5.5 (5.0-8.0); Protein,Urine Trace (Negative); Specific Gravity,Urine 1.029 (1.001-1.035); Urobilinogen,Urine <2.0 mg/dL (<2.0)
[2023-11-02] MEDS: D5-0.45% NACL WITH KCL 20MEQ/L 1,000 ML IV SCH (16:53)
[2023-11-02] MEDS: INSULIN REGULAR 100 UNIT in SODIUM CHLORIDE 0.9% 100 ML IV SCH (16:57)
[2023-11-02 17:01] LABS: Ketones,Urine 4+ (Negative)
[2023-11-02 19:14] LABS: Glucose,Whole Blood 196 mg/dL (70-110)
[2023-11-02 20:03] LABS: Glucose,Whole Blood 186 mg/dL (70-110)
[2023-11-02 20:06] LABS: African American GFR (CKD) >90 (>60 ml/min/1.73 sqM); Anion Gap 11 mmol/L; Blood Urea Nitrogen 15 mg/dL (9-20); Carbon Dioxide 22 mmol/L (22-30); Chloride 101 mmol/L (98-107); Glucose 187 mg/dL (74-99); Non-African American GFR(CKD) >90 (>60 ml/min/1.73 sqM); Potassium 3.9 mmol/L (3.5-5.1); Sodium 134 mmol/L (137-145)
[2023-11-02 20:58] LABS: Glucose,Whole Blood 151 mg/dL (70-110)
[2023-11-02 22:18] LABS: Glucose,Whole Blood 131 mg/dL (70-110)
[2023-11-02 23:01] LABS: Glucose,Whole Blood 129 mg/dL (70-110)
[2023-11-03 00:03] LABS: Glucose,Whole Blood 147 mg/dL (70-110)
[2023-11-03 00:59] LABS: Chloride 101 mmol/L (98-107)
[2023-11-03 01:02] LABS: African American GFR (CKD) >90 (>60 ml/min/1.73 sqM); Anion Gap 10 mmol/L; Blood Urea Nitrogen 13 mg/dL (9-20); Carbon Dioxide 22 mmol/L (22-30); Glucose 149 mg/dL (74-99); Non-African American GFR(CKD) >90 (>60 ml/min/1.73 sqM); Potassium 3.7 mmol/L (3.5-5.1); Sodium 133 mmol/L (137-145)
[2023-11-03 01:10] LABS: Glucose,Whole Blood 165 mg/dL (70-110)
[2023-11-03] MEDS: SODIUM CHLORIDE 0.9% 1,000 ML IV SCH (01:42)
[2023-11-03] MEDS: INSULIN NPH 100 UNIT/ML 10 ML VIAL SQ ONE (02:09)
[2023-11-03 05:40] LABS: Glucose,Whole Blood 335 mg/dL (70-110)
--- NOTE | 2023-11-03 05:48 | HP ---
HISTORY AND PHYSICAL CHIEF COMPLAINT: DKA. HISTORY OF PRESENT ILLNESS: This is another recent admission for this 28-year-old white male who is in and out of the hospital several times a week now. He is noncompliant. He goes home and will not take his insulin, and etc. He is completely out of control. He will not take his medications and will not follow up in the office regularly. In the past, he was assigned a guardian who gave up on as well. He came back in a day with elevated blood sugar and . REVIEW OF SYSTEMS: He is lethargic, but has no other complaints. He is somewhat nauseated. Past medical history, family history and personal and social histories are otherwise unremarkable and unchanged. PHYSICAL EXAMINATION: VITAL SIGNS: Normal except for tachycardia. HEAD, EARS, EYES, NOSE, MOUTH, AND THROAT: Normal. He is dehydrated. NECK: Supple. CHEST: Clear. CARDIAC: Normal. ABDOMEN: Soft and nontender. EXTREMITIES: Normal. NEUROLOGICAL: Intact. IMPRESSION: 1. Diabetic ketoacidosis. 2. Dehydration. 3. Major depression. 4. Noncompliant patient. 5. Type 1 insulin-dependent diabetes mellitus. 6. Gastroparesis. 7. Peripheral neuropathy. 8. Recent history of lynne arrhythmia. PLAN: 1. Bedrest. 2. IV fluids. 3. DKA protocol. MMODL / IJN: [id number] /
[2023-11-03 07:53] LABS: Glucose,Whole Blood 316 mg/dL (70-110)
[2023-11-03] MEDS: INSULIN ASPART (NovoLOG) 100 UNIT/ML VIAL SQ SCH ×2 (08:12→08:13)
[2023-11-03] MEDS: INSULIN DETEMIR (LEVEMIR) 100 UNIT/ML SYR SQ SCH (08:13)
[2023-11-03 13:03] LABS: Glucose,Whole Blood 226 mg/dL (70-110)
[2023-11-03 14:42] VITALS: BMI 15.0
[2023-11-03 16:58] LABS: Glucose,Whole Blood 138 mg/dL (70-110)
[2023-11-03 20:24] LABS: Glucose,Whole Blood 234 mg/dL (70-110)
[2023-11-03] MEDS ORDERED: ONDANSETRON 4 MG/2 ML VIAL IVP PRN (21:14)
--- NOTE | 2023-11-03 23:25 | PN ---
PROGRESS NOTE DATE OF SERVICE: 11/03/2023 CHIEF COMPLAINT: Diabetic ketoacidosis. HISTORY OF PRESENT ILLNESS: This gentleman is waking up and his gap is closing. PHYSICAL EXAMINATION: CHEST: Clear. CARDIAC: Normal. ABDOMEN: Flat, soft, nontender. IMPRESSION: DKA. PLAN: 1. Advance diet and activity. 2. Encouraged patient to be become serious about managing his disease. His excuse this time was that he, "did not have a meter and his Dexcom was broken.". MMODL / IJN: [id number] /
[2023-11-04 01:29] LABS: Glucose,Whole Blood 324 mg/dL (70-110)
[2023-11-04 07:31] LABS: Glucose,Whole Blood 239 mg/dL (70-110)
[2023-11-04] MEDS: LOSARTAN 50 MG TAB PO SCH (11:51)
[2023-11-04 12:21] LABS: Glucose,Whole Blood 193 mg/dL (70-110)
--- NOTE | 2023-11-04 14:01 | PN ---
PROGRESS NOTE DATE OF SERVICE: 11/04/2023 CHIEF COMPLAINT: DKA. HISTORY OF PRESENT ILLNESS: This gentleman is stable. Gap is closed. His blood pressure is elevated, however. PHYSICAL EXAMINATION: CHEST: Clear. CARDIAC: Normal. ABDOMEN: Soft, nontender. IMPRESSION: 1. DKA. 2. Hypertension. 3. Depression. PLAN: Resume losartan at 100 mg once a day and continue to follow his blood sugars. MMODL / IJN: [id number] /
[2023-11-04 17:37] LABS: Glucose,Whole Blood 241 mg/dL (70-110)
[2023-11-04 20:27] LABS: Glucose,Whole Blood 260 mg/dL (70-110)
[2023-11-05 02:42] LABS: Glucose,Whole Blood 384 mg/dL (70-110)
[2023-11-05 07:19] LABS: Glucose,Whole Blood 376 mg/dL (70-110)
[2023-11-05 08:29] VITALS: RESP 16; TEMP 97.7
[2023-11-05 12:11] LABS: Glucose,Whole Blood 287 mg/dL (70-110)
[2023-11-05 13:41] VITALS: BP 112/80; PULSE 93
--- NOTE | 2023-11-05 23:58 | DS ---
DISCHARGE SUMMARY CHIEF COMPLAINT: Uncontrolled diabetes mellitus. HISTORY OF PRESENT ILLNESS AND PHYSICAL EXAMINATION: Details of this man's history and physical can be found in the initial workup. LABORATORY STUDIES: While he was in the hospital, he had laboratory studies, details of which can be found in the laboratory section of his chart. COURSE IN THE HOSPITAL: After admission, he was placed on bedrest, started on intravenous fluids, DKA protocol. Sugars came down and he had no further trouble. It was felt that he could go home on the on his usual activity, diet, medication. If he agrees, he will be seen in the office in several days. He is now living in a alf house. FINAL DIAGNOSES: 1. Diabetic ketoacidosis. 2. Dehydration. 3. Essential hypertension. 4. History of notable arrhythmia. 5. Gastroparesis. 6. Peripheral neuropathy. OPERATIONS: None, he is improved. GRACE / ALDEN: [id number] /
== END 2023-11-05 16:58 | disposition home or self-care (01) | DRG 420 ==
LOC: EC 12:13 → 3SCARD 16:19 → 4SSUR 11-03 12:01 → 5NMEDONC 11-03 15:37
PROVIDERS: ADMIT Family Medicine; ATTEND Family Medicine
DX: E10.10 Type 1 diabetes mellitus with ketoacidosis without coma (principal); E10.43 Type 1 diabetes mellitus with diabetic autonomic (poly)neuropathy; E10.42 Type 1 diabetes mellitus with diabetic polyneuropathy; Z79.4 Long term (current) use of insulin; F32.9 Major depressive disorder, single episode, unspecified; I10 Essential (primary) hypertension; K31.84 Gastroparesis; E86.0 Dehydration; I49.8 Other specified cardiac arrhythmias; F17.210 Nicotine dependence, cigarettes, uncomplicated; T38.3X6A Underdosing of insulin and oral hypoglycemic [antidiabetic] drugs, initial encounter; Z91.128 Patient's intentional underdosing of medication regimen for other reason; Z79.899 Other long term (current) drug therapy; Z91.198 Patient's noncompliance with other medical treatment and regimen for other reason
CPT/HCPCS: 36415; 80051; 80053; 81003; 82009; 82565; 82803; 82947; 83605; 83690; 84100; 84520; 85025; 96361; 96365; 96366; 96375; 99291

== ENCOUNTER 2023-11-07 03:10 | Inpatient (IN) | payer OTHER ==
[2023-11-07 03:16] LABS: Glucose,Whole Blood >600 mg/dL (70-110)
[2023-11-07] MEDS: SODIUM CHLORIDE 0.9% 2,000 ML IV ONE (03:36)
[2023-11-07 03:37] LABS: Anisocytosis Slight; Basophils # (A) 0.1 k/uL (0-0.2); Basophils % (A) 0 %; Eosinophils # (A) 0.1 k/uL (0-0.7); Eosinophils % (A) 0 %; HCT 48.4 % (39.0-53.0); Hypochromasia Marked; Lymphocytes # (A) 2.4 k/uL (1.0-4.8); Lymphocytes % (A) 9 %; MCH 27.1 pg (25.0-35.0); MCHC 26.9 g/dL (31.0-37.0); Macrocytosis Moderate; Mean Platelet Volume 8.2; Monocytes # (A) 1.1 k/uL (0-1.0); Monocytes % (A) 4 %; Neutrophils # (A) 23.3 k/uL (1.3-7.7); Neutrophils % (A) 86 %; Platelet Count 498 k/uL (150-450); RBC 4.81 m/uL (4.30-5.90); RDW 17.3 % (11.5-15.5); WBC 27.1 k/uL (3.8-10.6)
[2023-11-07] MEDS: ONDANSETRON 4 MG/2 ML VIAL IVP STA (03:42)
[2023-11-07 03:50] LABS: ALT 24 U/L (4-49); AST 17 U/L (17-59); African American GFR (CKD) 46 (>60 ml/min/1.73 sqM); Alkaline Phosphatase 122 U/L (38-126); Blood Urea Nitrogen 40 mg/dL (9-20); Calcium 9.1 mg/dL (8.4-10.2); Chloride 87 mmol/L (98-107); Non-African American GFR(CKD) 40 (>60 ml/min/1.73 sqM); Potassium 5.9 mmol/L (3.5-5.1); Sodium 132 mmol/L (137-145); Total Bilirubin 0.7 mg/dL (0.2-1.3); Total Protein 6.7 g/dL (6.3-8.2)
[2023-11-07 03:53] LABS: MCV 100.6 fL (80.0-100.0)
[2023-11-07 04:00] LABS: Carbon Dioxide <5 mmol/L (22-30)
--- NOTE | 2023-11-07 04:00 | ED ---
General Adult HPI - General Chief complaint: Nausea/Vomiting/Diarrhea Stated complaint: Diabetic Time Seen by Provider: 11/07/23 03:25 Source: patient, RN notes reviewed Mode of arrival: EMS Limitations: no limitations - History of Present Illness Initial comments: 28-year-old male presents to the emergency department for evaluation of elevated blood sugar, nausea, vomiting. Patient is frequently in our emergency department for similar issues. He is an uncontrolled type I diabetic. He has not had insulin today, he reports that he has not eaten or drank anything in the past 2 days. Admits to frequent vomiting today. - Related Data Home Medications Medication Instructions Recorded Confirmed Ergocalciferol [Vitamin D2 (1250 1,250 mcg PO Q30D 04/29/23 11/07/23 Mcg = 70544 Iu)] Famotidine [Pepcid] 20 mg PO BID 04/29/23 11/07/23 Gabapentin 600 mg PO TID 04/29/23 11/07/23 Mirtazapine 7.5 mg PO HS 04/29/23 11/07/23 Insulin Lispro 7 units SQ AC-TID 09/17/23 11/07/23 Ferrous Sulfate [Iron (65 MG 325 mg PO DAILY 10/09/23 11/07/23 Elemental)] Omeprazole 20 mg PO BID 10/30/23 11/07/23 Previous Rx's Medication Instructions Recorded Atorvastatin [Lipitor] 20 mg PO HS #30 tab 09/26/23 Metoclopramide [Reglan] 10 mg PO TID PRN #15 tab 11/01/23 Insulin Detemir (Levemir) [Levemir] 30 unit SQ DAILY@0700 #30 each 11/09/23 Losartan [Cozaar] 100 mg PO DAILY #30 tab 11/09/23 Allergies Allergy/AdvReac Type Severity Reaction Status Date / Time No Known Allergies Allergy Verified 11/07/23 09:20 Review of Systems ROS Statement: Those systems with pertinent positive or pertinent negative responses have been documented in the HPI. ROS Other: All systems not noted in ROS Statement are negative. Past Medical History Past Medical History: Asthma, Diabetes Mellitus, Neurologic Disorder, Skin Disorder Additional Past Medical History / Comment(s): IDDM type I, neuropathy bilateral feet, DKA, eczema. History of Any Multi-Drug Resistant Organisms: None Reported Past Surgical History: Adenoidectomy Additional Past Surgical History / Comment(s): gastritis Past Anesthesia/Blood Transfusion Reactions: No Reported Reaction Past Psychological History: Anxiety, Depression Smoking Status: Vaper - Past Family History Mother Family Medical History: CVA/TIA Additional Family Medical History / Comment(s): TIA Father Family Medical History: Hyperlipidemia, Hypertension Additional Family Medical History / Comment(s): . General Exam Limitations: no limitations General appearance: alert, in distress Head exam: Present: atraumatic, normocephalic, normal inspection Eye exam: Present: normal appearance, PERRL, EOMI. Absent: scleral icterus, conjunctival injection, periorbital swelling ENT exam: Present: normal exam, mucous membranes moist Neck exam: Present: normal inspection. Absent: tenderness, meningismus, lymphadenopathy Respiratory exam: Present: normal lung sounds bilaterally, other (Kusmal breathing). Absent: respiratory distress, wheezes, rales, rhonchi, stridor Cardiovascular Exam: Present: normal rhythm, tachycardia, normal heart sounds. Absent: systolic murmur, diastolic murmur, rubs, gallop, clicks GI/Abdominal exam: Present: soft, normal bowel sounds. Absent: distended, tenderness, guarding, rebound, rigid Psychiatric exam: Present: normal affect, normal mood Skin exam: Present: warm, dry, intact, normal color. Absent: rash Course Vital Signs 11/07/23 11/07/23 11/07/23 03:11 03:21 04:30 Temperature 98 F Pulse Rate 135 H 123 H 122 H Respiratory 22 24 24 Rate Blood Pressure 97/56 104/59 105/61 O2 Sat by Pulse 98 99 98 Oximetry 11/07/23 11/07/23 11/07/23 05:00 05:30 06:00 Temperature Pulse Rate 128 H 121 H 122 H Respiratory 20 22 22 Rate Blood Pressure 112/64 108/58 114/64 O2 Sat by Pulse 98 100 98 Oximetry 11/07/23 11/07/23 11/07/23 06:30 08:17 11:58 Temperature Pulse Rate 118 H 115 H 120 H Respiratory 22 18 18 Rate Blood Pressure 114/71 109/70 99/63 O2 Sat by Pulse 98 99 99 Oximetry 11/07/23 11/07/23 11/07/23 14:01 19:00 20:15 Temperature 98.4 F Pulse Rate 116 H 99 92 Respiratory 18 12 19 Rate Blood Pressure 120/72 109/77 112/76 O2 Sat by Pulse 97 97 99 Oximetry Medical Decision Making - Medical Decision Making Was pt. sent in by a medical professional or institution (, JAS, MUSIC PASTOR, urgent care, hospital, or jail...) When possible be specific @ -No Did you speak to anyone other than the patient for history (EMS, parent, family, police, friend...)? What history was obtained from this source @ -No Did you review nursing and triage notes (agree or disagree)? Why? @ -I reviewed and agree with nursing and triage notes Were old charts reviewed (outside hosp., previous admission, EMS record, old EKG, old radiological studies, urgent care reports/EKG's, jail records)? Report findings @ -No old charts were reviewed Differential Diagnosis (chest pain, altered mental status, abdominal pain women, abdominal pain men, vaginal bleeding, weakness, fever, dyspnea, syncope, headache, dizziness, GI bleed, back pain, seizure, CVA, palpatations, mental health, musculoskeletal)? @ -Differential Abdominal Pain Men: Appendicitis, cholecystitis, diverticulosis, ischemic bowel, pancreatitis, hepatitis, UTI, gastroenteritis, AAA, incarcerated hernia, bowel obstruction, constipation, inflammatory bowel, hepatitis, peptic ulcer disease, splenic infarction, perforated viscus, testicular torsion, this is not meant to be an all-inclusive list EKG interpreted by me (3pts min.). @ -EKG at 329 shows sinus tachycardia X-rays interpreted by me (1pt min.). @ -None done CT interpreted by me (1pt min.). @ -None done U/S interpreted by me (1pt. min.). @ -None done What testing was considered but not performed or refused? (CT, X-rays, U/S, labs)? Why? @ -None What meds were considered but not given or refused? Why? @ -None Did you discuss the management of the patient with other professionals (professionals i.e. JAS Lucero, MUSIC PASTOR, lab, RT, psych nurse, forensic social worker, supervisor molding, teacher, fare enforcement officer, caseworker)? Give summary @ -Management discussed with ICU provider and patient's primary care provider by Dr. Anaya Was smoking cessation discussed for >3mins.? @ -No Was critical care preformed (if so, how long)? @ -No Were there social determinants of health that impacted care today? How? (Homelessness, low income, unemployed, alcoholism, drug addiction, transportation, low edu. Level, literacy, decrease access to med. care, fdc, rehab)? @ -Low income Was there de-escalation of care discussed even if they declined (Discuss DNR or withdrawal of care, Hospice)? DNR status @ -No What co-morbidities impacted this encounter? (DM, HTN, Smoking, COPD, CAD, Cancer, CVA, ARF, Chemo, Hep., AIDS, mental health diagnosis, sleep apnea, morbid obesity)? @ -Type 1 diabetes Was patient admitted / discharged? Hospital course, mention meds given and route, prescriptions, significant lab abnormalities, going to OR and other pe rtinent info. @ -ICU admit. Patient presented to the emergency department for abdominal pain, nausea, vomiting. He frequently presents for similar complaints with frequent DKA. Labs obtained. Significant for leukocytosis 27.1; VBG shows a pH of 7.02, bicarb of 5; patient hypokalemic with a potassium of 5.9, blood glucose 1109; significant lactic acidosis with a lactic acid of 9.9 and a positi ve serum acetone. Patient was given a 3 L of normal saline bolus and started on maintenance fluids. After CMP results with potassium of 5.9, patient was started on insulin drip. Patient signed out to Dr. Anaya pending admission. Undiagnosed new problem with uncertain prognosis? @ -No Drug Therapy requiring intensive monitoring for toxicity (Heparin, Nitro, Insulin, Cardizem)? @ -No Were any procedures done? @ -No Diagnosis/symptom? @ -Diabetic ketoacidosis Acute, or Chronic, or Acute on Chronic? @ -Acute Uncomplicated (without systemic symptoms) or Complicated (systemic symptoms)? @ -Complicated Side effects of treatment? @ -No Exacerbation, Progression, or Severe Exacerbation? @ -Exacerbation Poses a threat to life or bodily function? How? (Chest pain, USA, IA, pneumonia, PE, COPD, DKA, ARF, appy, cholecystitis, CVA, Diverticulitis, Homicidal, Suicidal, threat to staff... and all critical care pts) @ -Yes - Lab Data Result diagrams: 11/07/23 03:20 11/07/23 20:04 Lab Results 11/07/23 11/07/23 11/07/23 Range/Units 03:14 03:20 03:20 WBC 27.1 H (3.8-10.6) k/uL RBC 4.81 (4.30-5.90) m/uL Hgb 13.0 (13.0-17.5) gm/dL Hct 48.4 (39.0-53.0) % MCV 100.6 H D (80.0-100.0) fL MCH 27.1 (25.0-35.0) pg MCHC 26.9 L (31.0-37.0) g/dL RDW 17.3 H (11.5-15.5) % Plt Count 498 H (150-450) k/uL MPV 8.2 Neutrophils % 86 % Lymphocytes % 9 % Monocytes % 4 % Eosinophils % 0 % Basophils % 0 % Neutrophils # 23.3 H (1.3-7.7) k/uL Lymphocytes # 2.4 (1.0-4.8) k/uL Monocytes # 1.1 H (0-1.0) k/uL Eosinophils # 0.1 (0-0.7) k/uL Basophils # 0.1 (0-0.2) k/uL Hypochromasia Marked Anisocytosis Slight Macrocytosis Moderate VBG pH (7.31-7.41) VBG pCO2 (37-51) mmHg VBG HCO3 (24-28) mmol/L Sodium 132 L (137-145) mmol/L Potassium 5.9 H (3.5-5.1) mmol/L Chloride 87 L (98-107) mmol/L Carbon Dioxide <5 L* (22-30) mmol/L Anion Gap mmol/L BUN 40 H (9-20) mg/dL Creatinine 2.21 H (0.66-1.25) mg/dL Est GFR (CKD-EPI)AfAm 46 (>60 ml/min/1.73 sqM) Est GFR (CKD-EPI)NonAf 40 (>60 ml/min/1.73 sqM) Glucose 1109 H* (74-99) mg/dL POC Glucose (mg/dL) >600 H* (70-110) mg/dL POC Glu Coil Maker ID Daniel Ashton Lactic Ac Sepsis Rflx Plasma Lactic Acid Len (0.7-2.0) mmol/L Calcium 9.1 (8.4-10.2) mg/dL Phosphorus (2.5-4.5) mg/dL Magnesium (1.6-2.3) mg/dL Total Bilirubin 0.7 (0.2-1.3) mg/dL AST 17 (17-59) U/L ALT 24 (4-49) U/L Alkaline Phosphatase 122 (38-126) U/L Total Protein 6.7 (6.3-8.2) g/dL Albumin 5.0 (3.5-5.0) g/dL Urine Color Urine Appearance (Clear) Urine pH (5.0-8.0) Ur Specific [place] (1.001-1.035) Urine Protein (Negative) Urine Glucose (UA) (Negative) Urine Ketones (Negative) Urine Blood (Negative) Urine Nitrite (Negative) Urine Bilirubin (Negative) Urine Urobilinogen (<2.0) mg/dL Ur Leukocyte Esterase (Negative) Acetone, Qual Positive (Negative) 11/07/23 11/07/23 11/07/23 Range/Units 03:20 03:20 03:40 WBC (3.8-10.6) k/uL RBC (4.30-5.90) m/uL Hgb (13.0-17.5) gm/dL Hct (39.0-53.0) % MCV (80.0-100.0) fL MCH (25.0-35.0) pg MCHC (31.0-37.0) g/dL RDW (11.5-15.5) % Plt Count (150-450) k/uL MPV Neutrophils % % Lymphocytes % % Monocytes % % Eosinophils % % Basophils % % Neutrophils # (1.3-7.7) k/uL Lymphocytes # (1.0-4.8) k/uL Monocytes # (0-1.0) k/uL Eosinophils # (0-0.7) k/uL Basophils # (0-0.2) k/uL Hypochromasia Anisocytosis Macrocytosis VBG pH 7.02 L* (7.31-7.41) VBG pCO2 21 L (37-51) mmHg VBG HCO3 5 L* (24-28) mmol/L Sodium (137-145) mmol/L Potassium (3.5-5.1) mmol/L Chloride (98-107) mmol/L Carbon Dioxide (22-30) mmol/L Anion Gap mmol/L BUN (9-20) mg/dL Creatinine (0.66-1.25) mg/dL Est GFR (CKD-EPI)AfAm (>60 ml/min/1.73 sqM) Est GFR (CKD-EPI)NonAf (>60 ml/min/1.73 sqM) Glucose (74-99) mg/dL POC Glucose (mg/dL) (70-110) mg/dL POC Glu Coil Maker ID Lactic Ac Sepsis Rflx Plasma Lactic Acid Len 9.9 H* (0.7-2.0) mmol/L Calcium (8.4-10.2) mg/dL Phosphorus 13.3 H* (2.5-4.5) mg/dL Magnesium 2.6 H (1.6-2.3) mg/dL Total Bilirubin (0.2-1.3) mg/dL AST (17-59) U/L ALT (4-49) U/L Alkaline Phosphatase (38-126) U/L Total Protein (6.3-8.2) g/dL Albumin (3.5-5.0) g/dL Urine Color Urine Appearance (Clear) Urine pH (5.0-8.0) Ur Specific [place] (1.001-1.035) Urine Protein (Negative) Urine Glucose (UA) (Negative) Urine Ketones (Negative) Urine Blood (Negative) Urine Nitrite (Negative) Urine Bilirubin (Negative) Urine Urobilinogen (<2.0) mg/dL Ur Leukocyte Esterase (Negative) Acetone, Qual (Negative) 11/07/23 11/07/23 11/07/23 Range/Units 04:03 05:00 05:37 WBC (3.8-10.6) k/uL RBC (4.30-5.90) m/uL Hgb (13.0-17.5) gm/dL Hct (39.0-53.0) % MCV (80.0-100.0) fL MCH (25.0-35.0) pg MCHC (31.0-37.0) g/dL RDW (11.5-15.5) % Plt Count (150-450) k/uL MPV Neutrophils % % Lymphocytes % % Monocytes % % Eosinophils % % Basophils % % Neutrophils # (1.3-7.7) k/uL Lymphocytes # (1.0-4.8) k/uL Monocytes # (0-1.0) k/uL Eosinophils # (0-0.7) k/uL Basophils # (0-0.2) k/uL Hypochromasia Anisocytosis Macrocytosis VBG pH (7.31-7.41) VBG pCO2 (37-51) mmHg VBG HCO3 (24-28) mmol/L Sodium (137-145) mmol/L Potassium (3.5-5.1) mmol/L Chloride (98-107) mmol/L Carbon Dioxide (22-30) mmol/L Anion Gap mmol/L BUN (9-20) mg/dL Creatinine (0.66-1.25) mg/dL Est GFR (CKD-EPI)AfAm (>60 ml/min/1.73 sqM) Est GFR (CKD-EPI)NonAf (>60 ml/min/1.73 sqM) Glucose (74-99) mg/dL POC Glucose (mg/dL) >600 H* (70-110) mg/dL POC Glu Coil Maker ID Meli Storey Lactic Ac Sepsis Rflx Y Plasma Lactic Acid Len (0.7-2.0) mmol/L Calcium (8.4-10.2) mg/dL Phosphorus (2.5-4.5) mg/dL Magnesium (1.6-2.3) mg/dL Total Bilirubin (0.2-1.3) mg/dL AST (17-59) U/L ALT (4-49) U/L Alkaline Phosphatase (38-126) U/L Total Protein (6.3-8.2) g/dL Albumin (3.5-5.0) g/dL Urine Color Colorless Urine Appearance Clear (Clear) Urine pH 5.0 (5.0-8.0) Ur Specific [place] 1.023 (1.001-1.035) Urine Protein Negative (Negative) Urine Glucose (UA) 4+ H (Negative) Urine Ketones 3+ H (Negative) Urine Blood Negative (Negative) Urine Nitrite Negative (Negative) Urine Bilirubin Negative (Negative) Urine Urobilinogen <2.0 (<2.0) mg/dL Ur Leukocyte Esterase Negative (Negative) Acetone, Qual (Negative) 11/07/23 Range/Units 06:13 WBC (3.8-10.6) k/uL RBC (4.30-5.90) m/uL Hgb (13.0-17.5) gm/dL Hct (39.0-53.0) % MCV (80.0-100.0) fL MCH (25.0-35.0) pg MCHC (31.0-37.0) g/dL RDW (11.5-15.5) % Plt Count (150-450) k/uL MPV Neutrophils % % Lymphocytes % % Monocytes % % Eosinophils % % Basophils % % Neutrophils # (1.3-7.7) k/uL Lymphocytes # (1.0-4.8) k/uL Monocytes # (0-1.0) k/uL Eosinophils # (0-0.7) k/uL Basophils # (0-0.2) k/uL Hypochromasia Anisocytosis Macrocytosis VBG pH (7.31-7.41) VBG pCO2 (37-51) mmHg VBG HCO3 (24-28) mmol/L Sodium (137-145) mmol/L Potassium (3.5-5.1) mmol/L Chloride (98-107) mmol/L Carbon Dioxide (22-30) mmol/L Anion Gap mmol/L BUN (9-20) mg/dL Creatinine (0.66-1.25) mg/dL Est GFR (CKD-EPI)AfAm (>60 ml/min/1.73 sqM) Est GFR (CKD-EPI)NonAf (>60 ml/min/1.73 sqM) Glucose (74-99) mg/dL POC Glucose (mg/dL) >600 H* (70-110) mg/dL POC Glu Coil Maker ID Allegra Eddy Lactic Ac Sepsis Rflx Plasma Lactic Acid Len (0.7-2.0) mmol/L Calcium (8.4-10.2) mg/dL Phosphorus (2.5-4.5) mg/dL Magnesium (1.6-2.3) mg/dL Total Bilirubin (0.2-1.3) mg/dL AST (17-59) U/L ALT (4-49) U/L Alkaline Phosphatase (38-126) U/L Total Protein (6.3-8.2) g/dL Albumin (3.5-5.0) g/dL Urine Color Urine Appearance (Clear) Urine pH (5.0-8.0) Ur Specific [place] (1.001-1.035) Urine Protein (Negative) Urine Glucose (UA) (Negative) Urine Ketones (Negative) Urine Blood (Negative) Urine Nitrite (Negative) Urine Bilirubin (Negative) Urine Urobilinogen (<2.0) mg/dL Ur Leukocyte Esterase (Negative) Acetone, Qual (Negative) Critical Care Time Critical Care Time: Yes Total Critical Care Time: 35 Disposition Clinical Impression: DKA (diabetic ketoacidosis) Disposition: ADMITTED IP TO THIS [facility] Condition: Stable Is patient prescribed a controlled substance at d/c from ED?: No
[2023-11-07 04:01] LABS: VBG PH 7.02 (7.31-7.41)
[2023-11-07 04:02] LABS: Glucose 1109 mg/dL (74-99)
[2023-11-07] MEDS: SODIUM CHLORIDE 0.9% 1,000 ML IV ONE (04:36)
[2023-11-07] MEDS: SODIUM CHLORIDE 0.9% 1,000 ML IV SCH ×3 (04:36→20:33)
[2023-11-07] MEDS: METOCLOPRAMIDE 5 MG/ML 2 ML VIAL IVP STA (04:36)
[2023-11-07 04:51] LABS: Magnesium 2.6 mg/dL (1.6-2.3)
[2023-11-07 05:06] LABS: Phosphorus 13.3 mg/dL (2.5-4.5)
[2023-11-07] MEDS: INSULIN REGULAR 100 UNIT in SODIUM CHLORIDE 0.9% 100 ML IV SCH (05:06)
[2023-11-07 05:38] LABS: Glucose,Whole Blood >600 mg/dL (70-110)
[2023-11-07 05:48] LABS: Appearance,Urine Clear (Clear); Bilirubin,Urine Negative (Negative); Blood,Urine Negative (Negative); Color,Urine Colorless; Glucose,Urine (UA) 4+ (Negative); Leukocyte Esterase,Urine Negative (Negative); Nitrite,Urine Negative (Negative); Protein,Urine Negative (Negative); Specific Gravity,Urine 1.023 (1.001-1.035); Urobilinogen,Urine <2.0 mg/dL (<2.0)
[2023-11-07 05:52] LABS: Ketones,Urine 3+ (Negative)
[2023-11-07 06:14] LABS: Glucose,Whole Blood >600 mg/dL (70-110)
[2023-11-07 07:02] LABS: Glucose,Whole Blood >600 mg/dL (70-110)
[2023-11-07 08:06] LABS: Glucose,Whole Blood 598 mg/dL (70-110)
[2023-11-07 09:04] LABS: Glucose,Whole Blood 400 mg/dL (70-110)
[2023-11-07 09:36] LABS: African American GFR (CKD) 78 (>60 ml/min/1.73 sqM); Blood Urea Nitrogen 39 mg/dL (9-20); Chloride 106 mmol/L (98-107); Non-African American GFR(CKD) 68 (>60 ml/min/1.73 sqM); Potassium 5.5 mmol/L (3.5-5.1); Sodium 143 mmol/L (137-145)
[2023-11-07 09:49] LABS: Carbon Dioxide <5 mmol/L (22-30)
[2023-11-07 09:50] LABS: Glucose 630 mg/dL (74-99)
[2023-11-07 10:07] LABS: Glucose,Whole Blood 313 mg/dL (70-110)
[2023-11-07] MEDS: D5-0.45% NACL WITH KCL 20MEQ/L 1,000 ML IV SCH (11:01)
[2023-11-07 11:04] LABS: Glucose,Whole Blood 241 mg/dL (70-110)
[2023-11-07 11:29] VITALS: BMI 18.1
[2023-11-07 11:44] LABS: African American GFR (CKD) >90 (>60 ml/min/1.73 sqM); Anion Gap 17 mmol/L; Blood Urea Nitrogen 35 mg/dL (9-20); Carbon Dioxide 14 mmol/L (22-30); Chloride 109 mmol/L (98-107); Glucose 261 mg/dL (74-99); Non-African American GFR(CKD) >90 (>60 ml/min/1.73 sqM); Potassium 4.4 mmol/L (3.5-5.1); Sodium 140 mmol/L (137-145)
[2023-11-07 11:57] LABS: Glucose,Whole Blood 230 mg/dL (70-110)
[2023-11-07 13:02] LABS: Glucose,Whole Blood 211 mg/dL (70-110)
[2023-11-07 14:02] LABS: Glucose,Whole Blood 171 mg/dL (70-110)
[2023-11-07 15:05] LABS: Glucose,Whole Blood 157 mg/dL (70-110)
[2023-11-07 16:10] LABS: Glucose,Whole Blood 125 mg/dL (70-110)
[2023-11-07 17:04] LABS: Glucose,Whole Blood 116 mg/dL (70-110)
[2023-11-07] MEDS ORDERED: INSULIN ASPART (NovoLOG) 100 UNIT/ML VIAL SQ SCH (17:30)
[2023-11-07 18:10] LABS: Glucose,Whole Blood 123 mg/dL (70-110)
[2023-11-07 18:13] LABS: African American GFR (CKD) >90 (>60 ml/min/1.73 sqM); Anion Gap 8 mmol/L; Blood Urea Nitrogen 28 mg/dL (9-20); Carbon Dioxide 22 mmol/L (22-30); Chloride 105 mmol/L (98-107); Glucose 112 mg/dL (74-99); Non-African American GFR(CKD) >90 (>60 ml/min/1.73 sqM); Potassium 4.3 mmol/L (3.5-5.1); Sodium 135 mmol/L (137-145)
[2023-11-07 19:13] LABS: Glucose,Whole Blood 165 mg/dL (70-110)
[2023-11-07] MEDS: INSULIN ASPART (NovoLOG) 100 UNIT/ML VIAL SQ SCH (19:45)
[2023-11-07 21:03] LABS: African American GFR (CKD) >90 (>60 ml/min/1.73 sqM); Anion Gap 12 mmol/L; Blood Urea Nitrogen 24 mg/dL (9-20); Calcium 8.3 mg/dL (8.4-10.2); Carbon Dioxide 18 mmol/L (22-30); Chloride 101 mmol/L (98-107); Glucose 216 mg/dL (74-99); Non-African American GFR(CKD) >90 (>60 ml/min/1.73 sqM); Potassium 4.7 mmol/L (3.5-5.1); Sodium 131 mmol/L (137-145)
[2023-11-07 22:21] LABS: Glucose,Whole Blood 227 mg/dL (70-110)
--- NOTE | 2023-11-08 00:31 | HP ---
HISTORY AND PHYSICAL CHIEF COMPLAINT: Diabetic ketoacidosis. HISTORY OF PRESENT ILLNESS: This is another admission for this 28-year-old noncompliant white male type 1 insulin- dependent diabetic. He was just discharged a day or so ago. He is apparently now staying in the assisted house. He is in and out of the hospital almost every 3 or 4 days now. He goes home, does not take insulin and comes back in DKA. He has a problem of gastroparesis and peripheral neuropathy as well. He has major depression and has seen psychiatrist before who feel that his management is hopeless because he will not comply. He also apparently has recently had some legal issues which are unspecified and unclear. REVIEW OF SYSTEMS: Unremarkable. He is lethargic, but denies any complaints. PAST MEDICAL HISTORY, FAMILY HISTORY, PERSONAL AND SOCIAL HISTORY: All unchanged. PHYSICAL EXAMINATION: VITAL SIGNS: Normal. He is afebrile. He has had some issues with hypertension lately. HEENT: Head, ears, eyes, nose, mouth and throat are normal. His mucous membranes are dehydrated. CHEST: Clear. He is slightly tachypneic. CARDIAC: Normal except for tachycardia of 90. ABDOMEN: Soft. EXTREMITIES: Normal. NEUROLOGICAL: He is intact. DIAGNOSES: He is admitted to the hospital with diagnoses, 1. Diabetic ketoacidosis. 2. Depression. 3. Noncompliant individual. PLAN: 1. Bed rest. 2. IV fluids. 3. Insulin drip. GRACE / ALDEN: [id number] /
[2023-11-08 02:01] LABS: Glucose,Whole Blood 404 mg/dL (70-110)
[2023-11-08 02:25] VITALS: RESP 16
[2023-11-08] MEDS: INSULIN REGULAR 100 UNIT/ML VIAL (IM/SQ) SQ ONE (02:39)
[2023-11-08 07:02] LABS: Glucose,Whole Blood 209 mg/dL (70-110)
[2023-11-08] MEDS: LOSARTAN 25 MG TAB PO SCH (08:46)
[2023-11-08] MEDS: INSULIN DETEMIR (LEVEMIR) 100 UNIT/ML SYR SQ SCH (08:46)
[2023-11-08 12:06] LABS: Glucose,Whole Blood 162 mg/dL (70-110)
[2023-11-08] MEDS ORDERED: DEXTROSE 50% SYRINGE 50 ML IVP PRN ×2 (14:09)
[2023-11-08 17:05] LABS: Glucose,Whole Blood 132 mg/dL (70-110)
[2023-11-08] MEDS: INSULIN ASPART (NovoLOG) 100 UNIT/ML VIAL SQ SCH (17:23)
[2023-11-08 20:23] LABS: Glucose,Whole Blood 158 mg/dL (70-110)
[2023-11-08] MEDS: ONDANSETRON 4 MG/2 ML VIAL IVP PRN (21:30)
[2023-11-09 02:03] LABS: Glucose,Whole Blood 176 mg/dL (70-110)
[2023-11-09 06:53] LABS: Glucose,Whole Blood 201 mg/dL (70-110)
[2023-11-09] MEDS: INSULIN DETEMIR (LEVEMIR) 100 UNIT/ML SYR SQ SCH (08:21)
[2023-11-09 11:48] LABS: Glucose,Whole Blood 141 mg/dL (70-110)
[2023-11-09 13:08] VITALS: BP 131/90; PULSE 72; TEMP 98.1
[2023-11-09 17:23] LABS: Glucose,Whole Blood 125 mg/dL (70-110)
--- NOTE | 2023-11-09 22:40 | PN ---
PROGRESS NOTE DATE OF SERVICE: 11/08/2023 CHIEF COMPLAINT: DKA. HISTORY OF PRESENT ILLNESS: This gentleman is doing a bit better. He is still nauseated. Sugars are coming down and he is improved. PHYSICAL EXAMINATION: CHEST: Clear. CARDIAC: Normal. VITAL SIGNS: Blood pressure is normal. IMPRESSION: 1. DKA. 2. History of hypertension. 3. Depression. 4. Noncompliant patient. PLAN: Progress activity and diet and probably be able to be discharged tomorrow. MMODL / IJN: [id number] /
--- NOTE | 2023-11-09 22:55 | DS ---
DISCHARGE SUMMARY CHIEF COMPLAINT: DKA. HISTORY OF PRESENT ILLNESS AND PHYSICAL EXAMINATION: Details of this man's history and physical can be found in the initial workup. LABORATORY STUDIES: While he is in the hospital, he had laboratory studies, details of which can be found in the laboratory section of his chart. COURSE IN THE HOSPITAL: After admission, he was placed on bedrest on intravenous fluids and IV insulin management. Blood sugars came down, gap closed. His blood pressure remained under good control this admission. He was doing well, it was felt that he could go home on the . He will go home on his usual activity, diet, and medication and was requested to follow up in the office in the next day or 2. FINAL DIAGNOSIS: 1. Diabetic ketoacidosis. 2. Dehydration. 3. Gastroparesis. 4. Peripheral neuropathy. 5. History of hypertension. 6. History of lynne arrhythmia. 7. Depression. OPERATIONS: None. CONSULTATIONS: None. He is improved. MMBIANCA / TRAMN: [id number] /
== END 2023-11-09 19:24 | disposition home or self-care (01) | DRG 420 ==
LOC: EC 03:10 → 2SICU 06:49 → 5NMEDONC 18:39
PROVIDERS: ADMIT Family Medicine; ATTEND Family Medicine
DX: E10.10 Type 1 diabetes mellitus with ketoacidosis without coma (principal); E10.43 Type 1 diabetes mellitus with diabetic autonomic (poly)neuropathy; E86.0 Dehydration; E87.6 Hypokalemia; F41.9 Anxiety disorder, unspecified; L30.9 Dermatitis, unspecified; I49.8 Other specified cardiac arrhythmias; F32.9 Major depressive disorder, single episode, unspecified; G62.9 Polyneuropathy, unspecified; I10 Essential (primary) hypertension; K31.84 Gastroparesis; Z79.4 Long term (current) use of insulin; Z91.199 Patient's noncompliance with other medical treatment and regimen due to unspecified reason; Z71.3 Dietary counseling and surveillance; Z28.310 Unvaccinated for COVID-19; Z28.21 Immunization not carried out because of patient refusal; Z79.899 Other long term (current) drug therapy
CPT/HCPCS: 36415; 80048; 80051; 80053; 81003; 82009; 82565; 82803; 82947; 83036; 83605; 83735; 84100; 84520; 85025; 93005; 96361; 96365; 96366; 96374; 96375; 99285; 99291

== ENCOUNTER 2023-11-18 00:41 | Emergency (ER) | payer OTHER ==
[2023-11-18 00:44] VITALS: BP 126/88; PULSE 104; RESP 20; TEMP 97.8
--- NOTE | 2023-11-18 01:22 | ED ---
ENT HPI - General Chief complaint: Dental/Oral Stated complaint: Jaw pain Time Seen by Provider: 11/18/23 00:54 Source: patient, RN notes reviewed Mode of arrival: ambulatory Limitations: no limitations - History of Present Illness Initial comments: 28-year-old male presenting to the ED with a chief complaint of dental pain. Patient reports has had left lower dental pain for the past 2 to 3 days. Reports he has been taking ibuprofen with improvement of swelling however reports minimal improvement of pain. States that he is trying to follow-up with dentistry however has lost his insurance card missing as he finds this will be able to do so. Denies difficulty swallowing. Denies difficulty breathing. No fever or chills. No other complaints at this time. - Related Data Home Medications Medication Instructions Recorded Confirmed Ergocalciferol [Vitamin D2 (1250 1,250 mcg PO Q30D 04/29/23 11/07/23 Mcg = 57401 Iu)] Famotidine [Pepcid] 20 mg PO BID 04/29/23 11/07/23 Gabapentin 600 mg PO TID 04/29/23 11/07/23 Mirtazapine 7.5 mg PO HS 04/29/23 11/07/23 Insulin Lispro 7 units SQ AC-TID 09/17/23 11/07/23 Ferrous Sulfate [Iron (65 MG 325 mg PO DAILY 10/09/23 11/07/23 Elemental)] Omeprazole 20 mg PO BID 10/30/23 11/07/23 Previous Rx's Medication Instructions Recorded Atorvastatin [Lipitor] 20 mg PO HS #30 tab 09/26/23 Metoclopramide [Reglan] 10 mg PO TID PRN #15 tab 11/01/23 Insulin Detemir (Levemir) [Levemir] 30 unit SQ DAILY@0700 #30 each 11/09/23 Losartan [Cozaar] 100 mg PO DAILY #30 tab 11/09/23 Acetaminophen Tab [Tylenol] 500 mg PO Q6H #60 tablet 11/18/23 Amoxic-Pot Clav 875-125Mg 1 tab PO Q12HR 7 Days #14 tab 11/18/23 [Augmentin 875-125] Ibuprofen [Motrin] 600 mg PO Q8HR PRN #30 tab 11/18/23 Allergies Allergy/AdvReac Type Severity Reaction Status Date / Time No Known Allergies Allergy Verified 11/18/23 00:44 Review of Systems ROS Statement: Those systems with pertinent positive or pertinent negative responses have been documented in the HPI. ROS Other: All systems not noted in ROS Statement are negative. Past Medical History Past Medical History: Asthma, Diabetes Mellitus, Neurologic Disorder, Skin Disorder Additional Past Medical History / Comment(s): IDDM type I, neuropathy bilateral feet, DKA, eczema. History of Any Multi-Drug Resistant Organisms: None Reported Past Surgical History: Adenoidectomy Additional Past Surgical History / Comment(s): gastritis Past Anesthesia/Blood Transfusion Reactions: No Reported Reaction Past Psychological History: Anxiety, Depression Smoking Status: Never smoker, Vaper Past Alcohol Use History: None Reported Past Drug Use History: None Reported - Past Family History Mother Family Medical History: CVA/TIA Additional Family Medical History / Comment(s): TIA Father Family Medical History: Hyperlipidemia, Hypertension Additional Family Medical History / Comment(s): . General Exam Limitations: no limitations General appearance: alert, in no apparent distress Eye exam: Present: normal appearance ENT exam: Present: other (Poor dentition. Notable cavities of left lower premolar/molar. No significant oropharyngeal swelling. No stridor.) Neck exam: Present: normal inspection Respiratory exam: Present: normal lung sounds bilaterally Cardiovascular Exam: Present: regular rate GI/Abdominal exam: Present: soft, normal bowel sounds. Absent: distended, tenderness, guarding, rebound, rigid Neurological exam: Present: alert, oriented X3 Skin exam: Present: warm, dry Course Vital Signs 11/18/23 00:42 Temperature 97.8 F Pulse Rate 104 H Respiratory 20 Rate Blood Pressure 126/88 O2 Sat by Pulse 99 Oximetry Medical Decision Making - Medical Decision Making Was pt. sent in by a medical professional or institution (, PA, FRUIT PICKER MACHINE OPERATOR, urgent care, hospital, or longterm...) When possible be specific @ -No Did you speak to anyone other than the patient for history (EMS, parent, family, police, friend...)? What history was obtained from this source @ -No Did you review nursing and triage notes (agree or disagree)? Why? @ -I reviewed and agree with nursing and triage notes Were old charts reviewed (outside hosp., previous admission, EMS record, old EKG, old radiological studies, urgent care reports/EKG's, longterm records)? Report findings @ -No old charts were reviewed Differential Diagnosis (chest pain, altered mental status, abdominal pain women, abdominal pain men, vaginal bleeding, weakness, fever, dyspnea, syncope, headache, dizziness, GI bleed, back pain, seizure, CVA, palpatations, mental health, musculoskeletal)? @ -Apical abscess, periapical abscess, Robin's angina, ANUG... This is not meant to be an all-inclusive list. EKG interpreted by me (3pts min.). @ -None X-rays interpreted by me (1pt min.). @ -None done CT interpreted by me (1pt min.). @ -None done U/S interpreted by me (1pt. min.). @ -None done What testing was considered but not performed or refused? (CT, X-rays, U/S, labs)? Why? @ -None What meds were considered but not given or refused? Why? @ -None Did you discuss the management of the patient with other professionals (professionals i.e. , PA, FRUIT PICKER MACHINE OPERATOR, lab, RT, psych nurse, social media project manager, preparation room worker, teacher, chief quality officer, returned case inspector)? Give summary @ -No Was smoking cessation discussed for >3mins.? @ -No Was critical care preformed (if so, how long)? @ -No Were there social determinants of health that impacted care today? How? (Homelessness, low income, unemployed, alcoholism, drug addiction, transportation, low edu. Level, literacy, decrease access to med. care, fpc, rehab)? @ -No Was there de-escalation of care discussed even if they declined (Discuss DNR or withdrawal of care, Hospice)? DNR status @ -No What co-morbidities impacted this encounter? (DM, HTN, Smoking, COPD, CAD, Cancer, CVA, ARF, Chemo, Hep., AIDS, mental health diagnosis, sleep apnea, morbid obesity)? @ -None Was patient admitted / discharged? Hospital course, mention meds given and route, prescriptions, significant lab abnormalities, going to OR and other pertinent info. @ -Discharge 28-year-old male presenting to the ED with complaints of dental pain. Ongoing for the last 2 to 3 days and patient reports she will be following up with dentistry. Patient provided prescriptions for Augmentin, Motrin, Tylenol. Other than dental caries noted on examination oropharyngeal exam unremarkable. Vital signs stable afebrile. Discharged home in stable condition with instructions to closely follow-up with dentistry. Discussed return precautions with patient who verbalized agreement. Undiagnosed new problem with uncertain prognosis? @ -No Drug Therapy requiring intensive monitoring for toxicity (Heparin, Nitro, Insulin, Cardizem)? @ -No Were any procedures done? @ -No Diagnosis/symptom? @ -Dental pain Acute, or Chronic, or Acute on Chronic? @ -Acute Uncomplicated (without systemic symptoms) or Complicated (systemic symptoms)? @ -Uncomplicated Side effects of treatment? @ -No Exacerbation, Progression, or Severe Exacerbation? @ -No Poses a threat to life or bodily function? How? (Chest pain, [place], [place], pneumonia, PE, COPD, DKA, ARF, appy, cholecystitis, CVA, Diverticulitis, Homicidal, Suicidal, threat to staff... and all critical care pts) @ -No Disposition Clinical Impression: Pain, dental Disposition: HOME SELF-CARE Condition: Good Instructions (If sedation given, give patient instructions): Toothache (ED) Additional Instructions: Please return to the Emergency Department if symptoms worsen or any other concerns. Please follow-up with a dentist. Prescriptions: Amoxic-Pot Clav 875-125Mg [Augmentin 875-125] 1 tab PO Q12HR 7 Days #14 tab Ibuprofen [Motrin] 600 mg PO Q8HR PRN #30 tab PRN Reason: Pain Acetaminophen Tab [Tylenol] 500 mg PO Q6H #60 tablet Is patient prescribed a controlled substance at d/c from ED?: No Referrals: Brown Valenzuela MD [Primary Care Provider] - 1-2 days Time of Disposition: 01:26
[2023-11-18] MEDS: AMOXIC-POT CLAV 875MG STARTER PACK 2 TAB BTL PO STA (01:48)
[2023-11-18] MEDS: ACET/COD 300 MG/30 MG STARTER PACK 6 TAB BTL PO STA (01:49)
== END 2023-11-18 01:51 | disposition home or self-care (01) ==
LOC: EC 00:41
DX: K02.9 Dental caries, unspecified (principal); F17.290 Nicotine dependence, other tobacco product, uncomplicated
CPT/HCPCS: 99283

== ENCOUNTER 2023-11-26 20:39 | Emergency (ER) | payer OTHER ==
[2023-11-26 20:45] VITALS: TEMP 97.5
[2023-11-26] MEDS: KETOROLAC 15 MG/ML 1 ML VIAL IM STA (21:58)
[2023-11-26] MEDS: cefTRIAXone 1,000 MG VIAL (IM USE) IM STA (22:07)
--- NOTE | 2023-11-26 23:26 | ED ---
ENT HPI - General Chief complaint: Dental/Oral Stated complaint: Oral Pain Time Seen by Provider: 11/26/23 21:39 Source: patient, RN notes reviewed Mode of arrival: ambulatory Limitations: no limitations - History of Present Illness Initial comments: 28-year-old male presenting with oral pain x 1 week. Patient states the pain is in the left lower tooth radiating to the ear. He has a history of dental infections but has not followed up with a dentist. Denies difficulty breathing or swallowing. Denies fever or chills. Denies blood thinners. - Related Data Home Medications Medication Instructions Recorded Confirmed Ergocalciferol [Vitamin D2 (1250 1,250 mcg PO Q30D 04/29/23 11/07/23 Mcg = 78035 Iu)] Famotidine [Pepcid] 20 mg PO BID 04/29/23 11/07/23 Gabapentin 600 mg PO TID 04/29/23 11/07/23 Mirtazapine 7.5 mg PO HS 04/29/23 11/07/23 Insulin Lispro 7 units SQ AC-TID 09/17/23 11/07/23 Ferrous Sulfate [Iron (65 MG 325 mg PO DAILY 10/09/23 11/07/23 Elemental)] Omeprazole 20 mg PO BID 10/30/23 11/07/23 Previous Rx's Medication Instructions Recorded Atorvastatin [Lipitor] 20 mg PO HS #30 tab 09/26/23 Metoclopramide [Reglan] 10 mg PO TID PRN #15 tab 11/01/23 Insulin Detemir (Levemir) [Levemir] 30 unit SQ DAILY@0700 #30 each 11/09/23 Losartan [Cozaar] 100 mg PO DAILY #30 tab 11/09/23 Acetaminophen Tab [Tylenol] 500 mg PO Q6H #60 tablet 11/18/23 Amoxic-Pot Clav 875-125Mg 1 tab PO Q12HR 7 Days #14 tab 11/18/23 [Augmentin 875-125] Ibuprofen [Motrin] 600 mg PO Q8HR PRN #30 tab 11/18/23 Amoxic-Pot Clav 875-125Mg 1 tab PO Q12HR #20 tab 11/26/23 [Augmentin 875-125] Ketorolac [Toradol] 10 mg PO Q8HR #15 tab 11/26/23 Allergies Allergy/AdvReac Type Severity Reaction Status Date / Time No Known Allergies Allergy Verified 11/26/23 20:45 Review of Systems ROS Statement: Those systems with pertinent positive or pertinent negative responses have been documented in the HPI. ROS Other: All systems not noted in ROS Statement are negative. Past Medical History Past Medical History: Asthma, Diabetes Mellitus, Neurologic Disorder, Skin Disorder Additional Past Medical History / Comment(s): IDDM type I, neuropathy bilateral feet, DKA, eczema. History of Any Multi-Drug Resistant Organisms: None Reported Past Surgical History: Adenoidectomy Additional Past Surgical History / Comment(s): gastritis Past Anesthesia/Blood Transfusion Reactions: No Reported Reaction Past Psychological History: Anxiety, Depression Smoking Status: Never smoker, Vaper Past Alcohol Use History: None Reported Past Drug Use History: None Reported - Past Family History Mother Family Medical History: CVA/TIA Additional Family Medical History / Comment(s): TIA Father Family Medical History: Hyperlipidemia, Hypertension Additional Family Medical History / Comment(s): . General Exam Limitations: no limitations General appearance: alert, in no apparent distress Head exam: Present: atraumatic, normocephalic, normal inspection Eye exam: Present: normal appearance, PERRL, EOMI. Absent: scleral icterus, conjunctival injection, periorbital swelling ENT exam: Present: mucous membranes moist, TM's normal bilaterally, other (Diffuse dental caries throughout oral cavity, there is area of erythema and tenderness to palpation along left lower gingiva. There is no fluctuant mass present.) Neck exam: Present: normal inspection, other (No neck edema or tenderness). Absent: tenderness, meningismus, lymphadenopathy Respiratory exam: Present: normal lung sounds bilaterally. Absent: respiratory distress, wheezes, rales, rhonchi, stridor Cardiovascular Exam: Present: regular rate, normal rhythm, normal heart sounds. Absent: systolic murmur, diastolic murmur, rubs, gallop, clicks Extremities exam: Present: normal inspection, full ROM, normal capillary refill. Absent: tenderness, pedal edema, joint swelling, calf tenderness Neurological exam: Present: alert, oriented X3 Psychiatric exam: Present: normal affect, normal mood Skin exam: Present: warm, dry, intact, normal color. Absent: rash Course Vital Signs 11/26/23 11/26/23 20:40 23:33 Temperature 97.5 F L 97.5 F L Pulse Rate 98 82 Respiratory 20 18 Rate Blood Pressure 161/119 121/78 O2 Sat by Pulse 97 98 Oximetry Medical Decision Making - Medical Decision Making Was pt. sent in by a medical professional or institution (JAS Lucero, PLASMA PROCESSOR, urgent ca re, hospital, or jail...) When possible be specific @ -No Did you speak to anyone other than the patient for history (EMS, parent, family, police, friend...)? What history was obtained from this source @ -No Did you review nursing and triage notes (agree or disagree)? Why? @ -I reviewed and agree with nursing and triage notes Were old charts reviewed (outside hosp., previous admission, EMS record, old EKG, old radiological studies, urgent care reports/EKG's, jail records)? Report findings @ -No old charts were reviewed Differential Diagnosis (chest pain, altered mental status, abdominal pain women, abdominal pain men, vaginal bleeding, weakness, fever, dyspnea, syncope, headache, dizziness, GI bleed, back pain, seizure, CVA, palpatations, mental health, musculoskeletal)? @ -Dental abscess, dental infection, Robin's angina, strep pharyngitis, otitis media, retropharyngeal abscess, peritonsillar abscess EKG interpreted by me (3pts min.). @ -None X-rays interpreted by me (1pt min.). @ -None done CT interpreted by me (1pt min.). @ -None done U/S interpreted by me (1pt. min.). @ -None done What testing was considered but not performed or refused? (CT, X-rays, U/S, l abs)? Why? @ -Imaging not performed as there is no red flag symptoms What meds were considered but not given or refused? Why? @ -None Did you discuss the management of the patient with other professionals (professionals i.e. JAS Lucero, PLASMA PROCESSOR, lab, RT, psych nurse, director social welfare, space scheduler, teacher, small business banking officer, bilingual case manager)? Give summary @ -No Was smoking cessation discussed for >3mins.? @ -No Was critical care preformed (if so, how long)? @ -No Were there social determinants of health that impacted care today? How? (Homelessness, low income, unemployed, alcoholism, drug addiction, transportation, low edu. Level, literacy, decrease access to med. care, halfway, rehab)? @ -No Was there de-escalation of care discussed even if they declined (Discuss DNR or withdrawal of care, Hospice)? DNR status @ -No What co-morbidities impacted this encounter? (DM, HTN, Smoking, COPD, CAD, Cancer, CVA, ARF, Chemo, Hep., AIDS, mental health diagnosis, sleep apnea, morbid obesity)? @ -None Was patient admitted / discharged? Hospital course, mention meds given and route, prescriptions, significant lab abnormalities, going to OR and other pertinent info. @ -Patient was discharged. Patient was seen and evaluated for dental pain x 1 week. Patient is afebrile, nontachycardic. Physical examination is remarkable for erythema and tenderness in the left lower gingiva, no sign of fluctuant mass or drainable abscess. No lip or tongue swelling. No red flag symptoms. Patient is given IM Toradol for pain and IM Rocephin for antibiotic coverage. Discussed diagnosis of dental infection with patient. Supportive care discussed. Instructed patient that he must follow-up with dentist as soon as possible. Strict return parameters discussed with patient and he shows understanding and agrees with plan. Case discussed with my attending Dr. Anaya. Patient discharged in stable condition. Undiagnosed new problem with uncertain prognosis? @ -No Drug Therapy requiring intensive monitoring for toxicity (Heparin, Nitro, Insulin, Cardizem)? @ -No Were any procedures done? @ -No Diagnosis/symptom? @ -Dental infection Acute, or Chronic, or Acute on Chronic? @ -Acute Uncomplicated (without systemic symptoms) or Complicated (systemic symptoms)? @ -Uncomplicated Side effects of treatment? @ -No Exacerbation, Progression, or Severe Exacerbation? @ -No Poses a threat to life or bodily function? How? (Chest pain, [place], [place], pneumonia, PE, COPD, DKA, ARF, appy, cholecystitis, CVA, Diverticulitis, Homicidal, Suicidal, threat to staff... and all critical care pts) @ -Low likelihood Disposition Clinical Impression: Dental infection Disposition: HOME SELF-CARE Condition: Stable Instructions (If sedation given, give patient instructions): Dental Abscess (ED) Additional Instructions: You must follow-up with dentist as soon as possible. Take Augmentin as prescribed. Take Toradol as needed for pain. Chew on unaffected side until dentist follow-up. Please return to the Emergency Department if symptoms worsen or any other concerns. Prescriptions: Amoxic-Pot Clav 875-125Mg [Augmentin 875-125] 1 tab PO Q12HR #20 tab Ketorolac [Toradol] 10 mg PO Q8HR #15 tab Is patient prescribed a controlled substance at d/c from ED?: No Referrals: Brown Valenzuela MD [Primary Care Provider] - 1-2 days Time of Disposition: 23:25
[2023-11-26 23:34] VITALS: BP 121/78; PULSE 82; RESP 18
== END 2023-11-26 23:38 | disposition home or self-care (01) ==
LOC: EC 20:39
DX: K04.7 Periapical abscess without sinus (principal); F17.290 Nicotine dependence, other tobacco product, uncomplicated
CPT/HCPCS: 99282; 96372 ×2; J0696; J1885

== ENCOUNTER 2023-12-19 13:59 | Inpatient (IN) | payer OTHER ==
[2023-12-19 14:16] LABS: Glucose,Whole Blood 471 mg/dL (70-110)
[2023-12-19] MEDS: SODIUM CHLORIDE 0.9% 2,000 ML IV STA (15:02)
[2023-12-19] MEDS: ONDANSETRON 4 MG/2 ML VIAL IVP STA (15:03)
[2023-12-19] MEDS: PANTOPRAZOLE 40 MG/10 ML VIAL IVP STA (15:03)
[2023-12-19 15:15] LABS: VBG PH 7.14 (7.31-7.41)
[2023-12-19 15:23] LABS: Anisocytosis Slight; Basophils # (A) 0.1 k/uL (0-0.2); Basophils % (A) 1 %; Eosinophils # (A) 0.1 k/uL (0-0.7); Eosinophils % (A) 1 %; HCT 40.6 % (39.0-53.0); HGB 12.4 gm/dL (13.0-17.5); Hypochromasia Marked; Lymphocytes # (A) 1.8 k/uL (1.0-4.8); Lymphocytes % (A) 18 %; MCH 27.4 pg (25.0-35.0); MCHC 30.5 g/dL (31.0-37.0); Mean Platelet Volume 7.2; Monocytes # (A) 0.4 k/uL (0-1.0); Monocytes % (A) 4 %; Neutrophils # (A) 7.8 k/uL (1.3-7.7); Neutrophils % (A) 76 %; Platelet Count 428 k/uL (150-450); RBC 4.51 m/uL (4.30-5.90); WBC 10.3 k/uL (3.8-10.6)
[2023-12-19 15:53] LABS: ALT 27 U/L (4-49); AST 26 U/L (17-59); African American GFR (CKD) >90 (>60 ml/min/1.73 sqM); Albumin 4.8 g/dL (3.5-5.0); Alkaline Phosphatase 166 U/L (38-126); Amylase 77 U/L (30-110); Anion Gap 29 mmol/L; Blood Urea Nitrogen 26 mg/dL (9-20); Calcium 9.3 mg/dL (8.4-10.2); Chloride 104 mmol/L (98-107); Glucose 489 mg/dL (74-99); Lipase 59 U/L (23-300); Non-African American GFR(CKD) >90 (>60 ml/min/1.73 sqM); Potassium 5.2 mmol/L (3.5-5.1); Sodium 138 mmol/L (137-145); Total Bilirubin 0.6 mg/dL (0.2-1.3); Total Protein 7.2 g/dL (6.3-8.2)
[2023-12-19 16:18] LABS: Carbon Dioxide 5 mmol/L (22-30)
[2023-12-19] MEDS ORDERED: DEXTROSE 50% SYRINGE 50 ML IVP PRN ×2 (16:19)
[2023-12-19] MEDS ORDERED: Magnesium Replacement Protocol 1 EACH MISC MISCELLANE PRN (16:19)
[2023-12-19] MEDS ORDERED: Potassium Replacement Protocol 1 EACH MISC MISCELLANE PRN (16:19)
[2023-12-19] MEDS ORDERED: NALOXONE 0.4 MG/ML 1 ML VIAL IV PRN (17:14)
[2023-12-19] MEDS ORDERED: ONDANSETRON 4 MG/2 ML VIAL IVP PRN (17:14)
[2023-12-19 17:21] LABS: Glucose,Whole Blood 447 mg/dL (70-110)
[2023-12-19] MEDS: diphenhydrAMINE 50 MG/ML 1 ML VIAL IVP STA (17:21)
[2023-12-19] MEDS: METOCLOPRAMIDE 5 MG/ML 2 ML VIAL IVP STA (17:21)
[2023-12-19] MEDS: INSULIN REGULAR 100 UNIT in SODIUM CHLORIDE 0.9% 100 ML IV SCH (17:27)
[2023-12-19] MEDS: INSULIN REGULAR BOLUS (FROM DRIP BAG) IV ONE (17:28)
[2023-12-19] MEDS: SODIUM CHLORIDE 0.9% 1,000 ML IV SCH (17:52)
--- NOTE | 2023-12-19 18:30 | ED ---
General Adult HPI - General Chief complaint: Recheck/Abnormal Lab/Rx Stated complaint: DKA Time Seen by Provider: 12/19/23 14:22 Source: patient, EMS, RN notes reviewed, old records reviewed Mode of arrival: EMS - History of Present Illness Initial comments: Patient is a 28-year-old male who presents emergency department for nausea and vomiting and high blood sugars. Patient is well-known to our emergency department. Has poorly controlled type 1 diabetes. Recurrently in DKA. Presents with similar presentations as in the past. Endorses mild abdominal discomfort with nausea and vomiting. Presents for further evaluation at this time. - Related Data Home Medications Medication Instructions Recorded Confirmed Ergocalciferol [Vitamin D2 (1250 1,250 mcg PO Q30D 04/29/23 12/19/23 Mcg = 81849 Iu)] Famotidine [Pepcid] 20 mg PO BID 04/29/23 12/19/23 Gabapentin 600 mg PO TID 04/29/23 12/19/23 Mirtazapine 7.5 mg PO HS 04/29/23 12/19/23 Insulin Lispro 7 units SQ AC-TID 09/17/23 12/19/23 Ferrous Sulfate [Iron (65 MG 325 mg PO DAILY 10/09/23 12/19/23 Elemental)] Omeprazole 20 mg PO BID 10/30/23 12/19/23 Acetaminophen Tab [Tylenol] 500 - 1,000 mg PO Q6H PRN 12/19/23 12/19/23 Previous Rx's Medication Instructions Recorded Atorvastatin [Lipitor] 20 mg PO HS #30 tab 09/26/23 Metoclopramide [Reglan] 10 mg PO TID PRN #15 tab 11/01/23 Insulin Detemir (Levemir) [Levemir] 30 unit SQ DAILY@0700 #30 each 11/09/23 Losartan [Cozaar] 100 mg PO DAILY #30 tab 11/09/23 Ibuprofen [Motrin] 600 mg PO Q8HR PRN #30 tab 11/18/23 Ketorolac [Toradol] 10 mg PO Q8HR #15 tab 11/26/23 Allergies Allergy/AdvReac Type Severity Reaction Status Date / Time No Known Allergies Allergy Verified 12/19/23 15:38 Review of Systems ROS Statement: Those systems with pertinent positive or pertinent negative responses have been documented in the HPI. Review of Systems: CONST: Denies fever EYES: Denies blurry vision ENT: Denies nasal congestion C/V: Denies Chest pain RESP: Denies shortness of breath GI: Endorses mild abdominal pain : Denies dysuria SKIN: Denies rash. MSK: Denies joint pain. NEURO: Denies headache ROS Other: All systems not noted in ROS Statement are negative. Past Medical History Past Medical History: Asthma, Diabetes Mellitus, Neurologic Disorder, Skin Disorder Additional Past Medical History / Comment(s): IDDM type I, neuropathy bilateral feet, DKA, eczema. History of Any Multi-Drug Resistant Organisms: None Reported Past Surgical History: Adenoidectomy Additional Past Surgical History / Comment(s): gastritis Past Anesthesia/Blood Transfusion Reactions: No Reported Reaction Past Psychological History: Anxiety, Depression Smoking Status: Vaper Past Alcohol Use History: None Reported Past Drug Use History: None Reported - Past Family History Mother Family Medical History: CVA/TIA Additional Family Medical History / Comment(s): TIA Father Family Medical History: Hyperlipidemia, Hypertension Additional Family Medical History / Comment(s): . General Exam - General Exam Comments Initial Comments: General: Appears in mild acute distress and nauseous. HEAD: Normal with no signs of head trauma. EYES: PERRLA, EOMI, conjunctiva normal, no discharge. ENT: Hearing grossly intact, normal oropharynx. Dry mucous membranes. RESPIRATORY: Clear breath sounds bilaterally. No wheezes, rales, or rhonchi. C/V: Tachycardic with regular rhythm. S1 and S2 auscultated, no edema, peripheral pulses 2+ and intact throughout ABD: Abd is soft, nontender, nondistended EXT: Normal range of motion, no obvious deformity SKIN: No rashes or lesions observed on exposed skin. NEURO: Alert and oriented x 4. Course Vital Signs 12/19/23 12/19/23 12/19/23 14:04 17:53 20:08 Temperature 97.8 F Pulse Rate 118 H 125 H 122 H Respiratory 20 18 16 Rate Blood Pressure 128/91 111/61 129/95 O2 Sat by Pulse 99 99 98 Oximetry Medical Decision Making - Medical Decision Making Was pt. sent in by a medical professional or institution (, PA, BAND TEACHER, urgent care, hospital, or usp...) When possible be specific @ -No Did you speak to anyone other than the patient for history (EMS, parent, family, police, friend...)? What history was obtained from this source @ -No Did you review nursing and triage notes (agree or disagree)? Why? @ -I reviewed and agree with nursing and triage notes Were old charts reviewed (outside hosp., previous admission, EMS record, old EKG, old radiological studies, urgent care reports/EKG's, usp records)? Report findings @ -Old charts reviewed from recent admissions from October 2023 when he was in DKA as well. Presents with similar findings. Differential Diagnosis (chest pain, altered mental status, abdominal pain women, abdominal pain men, vaginal bleeding, weakness, fever, dyspnea, syncope, headache, dizziness, GI bleed, back pain, seizure, CVA, palpatations, mental health, musculoskeletal)? @ -Differential Weakness: Hypoglycemia, shock, sepsis, hyponatremia, anemia, infection, [place], ETOH, adverse medicine reaction, overdose, stroke, this is not meant to be an all-inclusive list. EKG interpreted by me (3pts min.). @ -As above X-rays interpreted by me (1pt min.). @ -None done CT interpreted by me (1pt min.). @ -None done U/S interpreted by me (1pt. min.). @ -None done What testing was considered but not performed or refused? (CT, X-rays, U/S, labs)? Why? @ -None What meds were considered but not given or refused? Why? @ -None Did you discuss the management of the patient with other professionals (professionals i.e. , PA, BAND TEACHER, lab, RT, psych nurse, social work therapist, hide inspector, teacher, licensed mortgage loan officer, manager of case management)? Give summary @ -Discussed with the admitting team, Dr. Charlton of [facility] who accepted the patient. They are covering for Dr. Valenzuela. Was smoking cessation discussed for >3mins.? @ -No Was critical care preformed (if so, how long)? @ -Yes, 33 minutes. Were there social determinants of health that impacted care today? How? (Homelessness, low income, unemployed, alcoholism, drug addiction, transportation, low edu. Level, literacy, decrease access to med. care, snf, rehab)? @ -No Was there de-escalation of care discussed even if they declined (Discuss DNR or withdrawal of care, Hospice)? DNR status @ -No What co-morbidities impacted this encounter? (DM, HTN, Smoking, COPD, CAD, Cancer, CVA, ARF, Chemo, Hep., AIDS, mental health diagnosis, sleep apnea, morbid obesity)? @ -Poorly controlled insulin-dependent diabetes Was patient admitted / discharged? Hospital course, mention meds given and route, prescriptions, significant lab abnormalities, going to OR and other pertinent info. @ -Patient presents with what I suspect to be DKA. He is given 2 L fluid bolus, as well as IV Zofran. IV Protonix as well. Vital signs are within acceptable limits except for tachycardia. We will obtain DKA workup. He was in agreement this plan. EKG shows no signs of acute ischemia. Laboratory studies remarkable for slight hyperkalemia 5.2. Patient has a metabolic acidosis with an anion gap of 29. Blood sugars elevated to 489. Remainder the workup relatively unremarkable other than positive acetone's. Patient is in DKA. Patient placed on DKA order set on insulin drip, insulin bolus, IV fluids. I do not believe he requires ICU admission at this time. Patient will be admitted to the medicine floor. I spoke with the admitting team, [facility] who is covering for Dr. Schwartz and her accepted the admission. Undiagnosed new problem with uncertain prognosis? @ -No Drug Therapy requiring intensive monitoring for toxicity (Heparin, Nitro, Insulin, Cardizem)? @ -Insulin Were any procedures done? @ -No Diagnosis/symptom? @ -DKA Acute, or Chronic, or Acute on Chronic? @ -Acute Uncomplicated (without systemic symptoms) or Complicated (systemic symptoms)? @ -Complicated Side effects of treatment? @ -No Exacerbation, Progression, or Severe Exacerbation? @ -No Poses a threat to life or bodily function? How? (Chest pain, [place], [place], pneumonia, PE, COPD, DKA, ARF, appy, cholecystitis, CVA, Diverticulitis, Homicidal, Suicidal, threat to staff... and all critical care pts) @ -Yes - Lab Data Result diagrams: 12/19/23 14:47 12/19/23 14:47 Lab Results 12/19/23 12/19/23 12/19/23 Range/Units 14:14 14:47 14:47 WBC 10.3 (3.8-10.6) k/uL RBC 4.51 (4.30-5.90) m/uL Hgb 12.4 L (13.0-17.5) gm/dL Hct 40.6 (39.0-53.0) % MCV 90.0 D (80.0-100.0) fL MCH 27.4 (25.0-35.0) pg MCHC 30.5 L (31.0-37.0) g/dL RDW 17.0 H (11.5-15.5) % Plt Count 428 (150-450) k/uL MPV 7.2 Neutrophils % 76 % Lymphocytes % 18 % Monocytes % 4 % Eosinophils % 1 % Basophils % 1 % Neutrophils # 7.8 H (1.3-7.7) k/uL Lymphocytes # 1.8 (1.0-4.8) k/uL Monocytes # 0.4 (0-1.0) k/uL Eosinophils # 0.1 (0-0.7) k/uL Basophils # 0.1 (0-0.2) k/uL Hypochromasia Marked Anisocytosis Slight VBG pH (7.31-7.41) VBG pCO2 (37-51) mmHg VBG HCO3 (24-28) mmol/L Sodium (137-145) mmol/L Potassium (3.5-5.1) mmol/L Chloride (98-107) mmol/L Carbon Dioxide (22-30) mmol/L Anion Gap mmol/L BUN (9-20) mg/dL Creatinine (0.66-1.25) mg/dL Est GFR (CKD-EPI)AfAm (>60 ml/min/1.73 sqM) Est GFR (CKD-EPI)NonAf (>60 ml/min/1.73 sqM) Glucose (74-99) mg/dL POC Glucose (mg/dL) 471 H (70-110) mg/dL POC Glu Public Aid Eligibility Assistant ID Shane, Jane Plasma Lactic Acid Len (0.7-2.0) mmol/L Calcium (8.4-10.2) mg/dL Total Bilirubin (0.2-1.3) mg/dL AST (17-59) U/L ALT (4-49) U/L Alkaline Phosphatase (38-126) U/L Total Protein (6.3-8.2) g/dL Albumin (3.5-5.0) g/dL Amylase (30-110) U/L Lipase (23-300) U/L Urine Color Colorless Urine Appearance Clear (Clear) Urine pH 5.5 (5.0-8.0) Ur Specific [place] 1.021 (1.001-1.035) Urine Protein Trace H (Negative) Urine Glucose (UA) 4+ H (Negative) Urine Ketones 4+ H (Negative) Urine Blood Negative (Negative) Urine Nitrite Negative (Negative) Urine Bilirubin Negative (Negative) Urine Urobilinogen <2.0 (<2.0) mg/dL Ur Leukocyte Esterase Negative (Negative) Acetone, Qual (Negative) 12/19/23 12/19/23 12/19/23 Range/Units 14:47 14:47 14:47 WBC (3.8-10.6) k/uL RBC (4.30-5.90) m/uL Hgb (13.0-17.5) gm/dL Hct (39.0-53.0) % MCV (80.0-100.0) fL MCH (25.0-35.0) pg MCHC (31.0-37.0) g/dL RDW (11.5-15.5) % Plt Count (150-450) k/uL MPV Neutrophils % % Lymphocytes % % Monocytes % % Eosinophils % % Basophils % % Neutrophils # (1.3-7.7) k/uL Lymphocytes # (1.0-4.8) k/uL Monocytes # (0-1.0) k/uL Eosinophils # (0-0.7) k/uL Basophils # (0-0.2) k/uL Hypochromasia Anisocytosis VBG pH 7.14 L* (7.31-7.41) VBG pCO2 27 L (37-51) mmHg VBG HCO3 9 L* (24-28) mmol/L Sodium 138 (137-145) mmol/L Potassium 5.2 H (3.5-5.1) mmol/L Chloride 104 (98-107) mmol/L Carbon Dioxide 5 L* (22-30) mmol/L Anion Gap 29 mmol/L BUN 26 H (9-20) mg/dL Creatinine 0.88 (0.66-1.25) mg/dL Est GFR (CKD-EPI)AfAm >90 (>60 ml/min/1.73 sqM) Est GFR (CKD-EPI)NonAf >90 (>60 ml/min/1.73 sqM) Glucose 489 H (74-99) mg/dL POC Glucose (mg/dL) (70-110) mg/dL POC Glu Public Aid Eligibility Assistant ID Plasma Lactic Acid Len 1.8 (0.7-2.0) mmol/L Calcium 9.3 (8.4-10.2) mg/dL Total Bilirubin 0.6 (0.2-1.3) mg/dL AST 26 (17-59) U/L ALT 27 (4-49) U/L Alkaline Phosphatase 166 H (38-126) U/L Total Protein 7.2 (6.3-8.2) g/dL Albumin 4.8 (3.5-5.0) g/dL Amylase 77 (30-110) U/L Lipase 59 (23-300) U/L Urine Color Urine Appearance (Clear) Urine pH (5.0-8.0) Ur Specific [place] (1.001-1.035) Urine Protein (Negative) Urine Glucose (UA) (Negative) Urine Ketones (Negative) Urine Blood (Negative) Urine Nitrite (Negative) Urine Bilirubin (Negative) Urine Urobilinogen (<2.0) mg/dL Ur Leukocyte Esterase (Negative) Acetone, Qual Positive (Negative) - EKG Data -: EKG Interpreted by Me EKG Comments: 12-lead Electrocardiogram Interpretation Note EKG was reviewed and interpreted by myself. 12-lead ECG performed at 1408 is interpreted by me as revealing tachycardia at a rate of 115 beats per minute. Morrison is normal. MO interval is 168 ms, QRS duration is 90 ms, QTc is 402 ms. There were no ST or T wave abnormalities to suggest myocardial ischemia or injury. R wave progression across the precordium was satisfactory. By my interpretation this EKG is non-diagnostic for acute ischemia. Critical Care Time Critical Care Time: Yes Total Critical Care Time: 33 Disposition Clinical Impression: DKA (diabetic ketoacidosis) Disposition: ADMITTED IP TO THIS [facility] Condition: Serious Time of Disposition: 18:36
[2023-12-19 18:46] LABS: Glucose,Whole Blood 312 mg/dL (70-110)
[2023-12-19 20:06] LABS: Glucose,Whole Blood 225 mg/dL (70-110)
[2023-12-19 20:12] LABS: Appearance,Urine Clear (Clear); Color,Urine Colorless; PH, Urine 5.5 (5.0-8.0); Protein,Urine Trace (Negative); Specific Gravity,Urine 1.021 (1.001-1.035)
[2023-12-19 20:13] LABS: Bilirubin,Urine Negative (Negative); Blood,Urine Negative (Negative); Glucose,Urine (UA) 4+ (Negative); Leukocyte Esterase,Urine Negative (Negative); Nitrite,Urine Negative (Negative); Urobilinogen,Urine <2.0 mg/dL (<2.0)
[2023-12-19 20:16] LABS: Ketones,Urine 4+ (Negative)
[2023-12-19 20:33] LABS: African American GFR (CKD) >90 (>60 ml/min/1.73 sqM); Anion Gap 22 mmol/L; Blood Urea Nitrogen 26 mg/dL (9-20); Chloride 117 mmol/L (98-107); Glucose 234 mg/dL (74-99); Non-African American GFR(CKD) >90 (>60 ml/min/1.73 sqM); Potassium 4.7 mmol/L (3.5-5.1); Sodium 146 mmol/L (137-145)
[2023-12-19 20:54] LABS: Carbon Dioxide 7 mmol/L (22-30)
[2023-12-19] MEDS: D5-0.45% NACL WITH KCL 20MEQ/L 1,000 ML IV SCH (21:39)
[2023-12-19 21:41] LABS: Glucose,Whole Blood 287 mg/dL (70-110)
[2023-12-19] MEDS: GABAPENTIN 300 MG CAP PO SCH (21:57)
[2023-12-19] MEDS: ATORVASTATIN 20 MG TAB PO SCH (21:57)
[2023-12-19 22:38] LABS: Glucose,Whole Blood 313 mg/dL (70-110)
[2023-12-19 23:27] LABS: Glucose,Whole Blood 298 mg/dL (70-110)
[2023-12-20 00:32] LABS: Glucose,Whole Blood 190 mg/dL (70-110)
[2023-12-20 01:22] LABS: African American GFR (CKD) >90 (>60 ml/min/1.73 sqM); Anion Gap 18 mmol/L; Blood Urea Nitrogen 25 mg/dL (9-20); Chloride 117 mmol/L (98-107); Glucose 218 mg/dL (74-99); Non-African American GFR(CKD) >90 (>60 ml/min/1.73 sqM); Phosphorus 3.3 mg/dL (2.5-4.5); Potassium 5.1 mmol/L (3.5-5.1); Sodium 144 mmol/L (137-145)
[2023-12-20 01:23] LABS: Carbon Dioxide 9 mmol/L (22-30)
[2023-12-20 01:36] LABS: Glucose,Whole Blood 181 mg/dL (70-110)
[2023-12-20 02:32] LABS: Glucose,Whole Blood 169 mg/dL (70-110)
[2023-12-20 03:33] LABS: Glucose,Whole Blood 140 mg/dL (70-110)
[2023-12-20 04:36] LABS: Glucose,Whole Blood 141 mg/dL (70-110)
[2023-12-20 05:46] LABS: Glucose,Whole Blood 124 mg/dL (70-110)
[2023-12-20 06:24] LABS: Anisocytosis Slight; Basophils # (A) 0.1 k/uL (0-0.2); Basophils % (A) 1 %; Eosinophils # (A) 0.1 k/uL (0-0.7); Eosinophils % (A) 1 %; HCT 35.2 % (39.0-53.0); Hypochromasia Marked; Lymphocytes # (A) 2.8 k/uL (1.0-4.8); Lymphocytes % (A) 13 %; MCH 27.4 pg (25.0-35.0); MCHC 31.1 g/dL (31.0-37.0); MCV 88.1 fL (80.0-100.0); Mean Platelet Volume 6.6; Monocytes # (A) 1.4 k/uL (0-1.0); Monocytes % (A) 6 %; Neutrophils # (A) 16.4 k/uL (1.3-7.7); Neutrophils % (A) 78 %; Platelet Count 520 k/uL (150-450); RDW 17.3 % (11.5-15.5); WBC 21.1 k/uL (3.8-10.6)
[2023-12-20 06:33] LABS: Potassium 4.3 mmol/L (3.5-5.1)
[2023-12-20 06:34] LABS: ALT 23 U/L (4-49); AST 20 U/L (17-59); African American GFR (CKD) >90 (>60 ml/min/1.73 sqM); Alkaline Phosphatase 112 U/L (38-126); Anion Gap 10 mmol/L; Blood Urea Nitrogen 21 mg/dL (9-20); Calcium 8.5 mg/dL (8.4-10.2); Carbon Dioxide 15 mmol/L (22-30); Chloride 114 mmol/L (98-107); Glucose 128 mg/dL (74-99); Non-African American GFR(CKD) >90 (>60 ml/min/1.73 sqM); Sodium 139 mmol/L (137-145); Total Bilirubin 0.4 mg/dL (0.2-1.3); Total Protein 6.7 g/dL (6.3-8.2)
[2023-12-20 07:06] LABS: Glucose,Whole Blood 141 mg/dL (70-110)
[2023-12-20 08:16] LABS: Glucose,Whole Blood 195 mg/dL (70-110)
[2023-12-20 09:12] LABS: Glucose,Whole Blood 202 mg/dL (70-110)
--- NOTE | 2023-12-20 09:16 | P.HPIM ---
History of Present Illness This is a pleasant 28 years old male with past medical history of type 1 diabetes mellitus on insulin, nonadherence to medication, frequent hospitalization for DKA, frequent leaving AMA. Presents this time because of similar complaints of noncompliance/nonadherence to his medication with nausea vomiting and abdominal discomfort Found to have an diabetic ketoacidosis with positive acetone and positive anion gap. He was sleepy this morning waking up, fully awake and oriented, no much interaction but he could answer all my questions He stated he missed his insulin dose with no specification, states he forgot to take his medication. Patient counseled on the importance of an adherence to his medication and he verbalized understanding and acceptance. Patient currently denies any specific complaint, no chest pain or dyspnea. No headache dizziness weakness numbness. No change in urine or bowel habits. No chills or fever. He feels hungry and he wants to eat. He denies depression suicidal or homicidal ideation I talked to the patient to stay in the hospital and he agrees. Risk of leaving AMA are explained for the patient and he verbalized understanding and acceptance. He still on insulin drip at 1.18 and IV fluids at 150 mL/h He is afebrile, tachycardic on admission, currently heart rate is improving Labs reviewed, he has chronic leukocytosis with baseline 10-22, yesterday was 10,000 and today 21,000 Hemoglobin 12.4 and 11 today, baseline 9-12 pH was low 7.4 on admission, pCO2 was low at 27 EKG showing sinus tachycardia at [address]-T changes and QTc 462 Review of Systems Review of systems CONSTITUTIONAL: No fever, no malaise, no fatigue. HEENT: No recent visual problems or hearing problems. Denied any sore throat. CARDIOVASCULAR: No orthopnea, PND, no palpitations, no syncope. PULMONARY: No shortness of breath, no cough, no hemoptysis. GASTROINTESTINAL: No diarrhea, no nausea, no vomiting, no abdominal pain. Normoactive bowel sounds. NEUROLOGICAL: No headaches, no weakness, no numbness. HEMATOLOGICAL: Denies any bleeding or petechiae. GENITOURINARY: Denies any burning micturition, frequency, or urgency. MUSCULOSKELETAL/RHEUMATOLOGICAL: Denies any joint pain, swelling, or any muscle pain. ENDOCRINE: Denies any polyuria or polydipsia. Past Medical History Past Medical History: Asthma, Diabetes Mellitus, Neurologic Disorder, Skin Disorder Additional Past Medical History / Comment(s): IDDM type I, neuropathy bilateral feet, DKA, eczema. History of Any Multi-Drug Resistant Organisms: None Reported Past Surgical History: Adenoidectomy Additional Past Surgical History / Comment(s): gastritis Past Anesthesia/Blood Transfusion Reactions: No Reported Reaction Past Psychological History: Anxiety, Depression Additional Psychological History / Comment(s): Pt has had multiple psychiatric admissions for depression/suicide attempts. Smoking Status: Former smoker Past Alcohol Use History: None Reported Additional Past Alcohol Use History / Comment(s): Pt started smoking cigarettes Pt started occasional vaping in 2009. patient states he hasnt had alcohol in one year. Past Drug Use History: None Reported Additional Drug Use History / Comment(s): almost daily - Past Family History Mother Family Medical History: CVA/TIA Additional Family Medical History / Comment(s): TIA Father Family Medical History: Hyperlipidemia, Hypertension Additional Family Medical History / Comment(s): . Medications and Allergies Home Medications Medication Instructions Recorded Confirmed Type Ergocalciferol [Vitamin D2 (1250 1,250 mcg PO Q30D 04/29/23 12/19/23 History Mcg = 10839 Iu)] Famotidine [Pepcid] 20 mg PO BID 04/29/23 12/19/23 History Gabapentin 600 mg PO TID 04/29/23 12/19/23 History Mirtazapine 7.5 mg PO HS 04/29/23 12/19/23 History Insulin Lispro 7 units SQ AC-TID 09/17/23 12/19/23 History Atorvastatin [Lipitor] 20 mg PO HS #30 tab 09/26/23 12/19/23 Rx Ferrous Sulfate [Iron (65 MG 325 mg PO DAILY 10/09/23 12/19/23 History Elemental)] Omeprazole 20 mg PO BID 10/30/23 12/19/23 History Metoclopramide [Reglan] 10 mg PO TID PRN #15 tab 11/01/23 12/19/23 Rx Insulin Detemir (Levemir) [Levemir] 30 unit SQ DAILY@0700 #30 each 11/09/23 12/19/23 Rx Losartan [Cozaar] 100 mg PO DAILY #30 tab 11/09/23 12/19/23 Rx Ibuprofen [Motrin] 600 mg PO Q8HR PRN #30 tab 11/18/23 12/19/23 Rx Ketorolac [Toradol] 10 mg PO Q8HR #15 tab 11/26/23 12/19/23 Rx Acetaminophen Tab [Tylenol] 500 - 1,000 mg PO Q6H PRN 12/19/23 12/19/23 History Allergies Allergy/AdvReac Type Severity Reaction Status Date / Time No Known Allergies Allergy Verified 12/19/23 15:38 Physical Exam Vitals: Vital Signs Temp Pulse Pulse Resp BP BP Pulse Ox 12/20/23 03:33 98.7 F 121 H 16 122/74 99 12/20/23 01:53 120 H 12/19/23 23:43 98.3 F 131 H 20 130/82 99 12/19/23 23:11 120 H 12/19/23 20:08 122 H 16 129/95 98 12/19/23 17:53 125 H 18 111/61 99 12/19/23 14:04 97.8 F 118 H 20 128/91 99 Intake and Output 12/19/23 12/20/23 12/20/23 22:59 06:59 14:59 Intake Total 733.109 53.418 Balance 733.109 53.418 Intake: Intake, IV Titration 373.109 53.418 Amount D5-0.45% NaCl with KCl 150 20Meq/l 1,000 ml @ 150 mls/hr IV .[id number] [facility] Rx# :[id number] Insulin Regular 100 unit 23.109 53.418 In Sodium Chloride 0.9% 100 ml @ 0.1 UNITS/KG/HR 6.414 mls/hr IV .[id number] [facility] Rx#:[id number] Sodium Chloride 0.9% 1, 200 000 ml @ 200 mls/hr IV . Q5H [facility] Rx#:[id number] Oral 360 Other: Weight 63.503 kg 63 kg GENERAL: The patient is alert and oriented x3, not in any acute distress. Well developed, well nourished. HEENT: Pupils are round and equally reacting to light. EOMI. No scleral icterus. No conjunctival pallor. Normocephalic, atraumatic. No pharyngeal erythema. No thyromegaly. CARDIOVASCULAR: S1 and S2 present. No murmurs, rubs, or gallops. PULMONARY: Chest is clear to auscultation, no wheezing , no crackles. ABDOMEN: Soft, nontender, nondistended, normoactive bowel sounds. No palpable organomegaly. MUSCULOSKELETAL: No joint swelling or deformity. EXTREMITIES: No cyanosis, clubbing, or pedal edema. NEUROLOGICAL: Gross neurological examination did not reveal any focal deficits. SKIN: No rashes. no petechiae. Results CBC & Chem 7: 12/20/23 05:58 12/20/23 05:58 Labs: Abnormal Lab Results - Last 24 Hours (Table) 12/19/23 12/19/23 12/19/23 Range/Units 14:14 14:47 14:47 WBC (3.8-10.6) k/uL RBC (4.30-5.90) m/uL Hgb 12.4 L (13.0-17.5) gm/dL Hct (39.0-53.0) % MCHC 30.5 L (31.0-37.0) g/dL RDW 17.0 H (11.5-15.5) % Plt Count (150-450) k/uL Neutrophils # 7.8 H (1.3-7.7) k/uL Monocytes # (0-1.0) k/uL VBG pH (7.31-7.41) VBG pCO2 (37-51) mmHg VBG HCO3 (24-28) mmol/L Sodium (137-145) mmol/L Potassium (3.5-5.1) mmol/L Chloride (98-107) mmol/L Carbon Dioxide (22-30) mmol/L BUN (9-20) mg/dL Glucose (74-99) mg/dL POC Glucose (mg/dL) 471 H (70-110) mg/dL Alkaline Phosphatase (38-126) U/L Urine Protein Trace H (Negative) Urine Glucose (UA) 4+ H (Negative) Urine Ketones 4+ H (Negative) 12/19/23 12/19/23 12/19/23 Range/Units 14:47 14:47 17:20 WBC (3.8-10.6) k/uL RBC (4.30-5.90) m/uL Hgb (13.0-17.5) gm/dL Hct (39.0-53.0) % MCHC (31.0-37.0) g/dL RDW (11.5-15.5) % Plt Count (150-450) k/uL Neutrophils # (1.3-7.7) k/uL Monocytes # (0-1.0) k/uL VBG pH 7.14 L* (7.31-7.41) VBG pCO2 27 L (37-51) mmHg VBG HCO3 9 L* (24-28) mmol/L Sodium (137-145) mmol/L Potassium 5.2 H (3.5-5.1) mmol/L Chloride (98-107) mmol/L Carbon Dioxide 5 L* (22-30) mmol/L BUN 26 H (9-20) mg/dL Glucose 489 H (74-99) mg/dL POC Glucose (mg/dL) 447 H (70-110) mg/dL Alkaline Phosphatase 166 H (38-126) U/L Urine Protein (Negative) Urine Glucose (UA) (Negative) Urine Ketones (Negative) 12/19/23 12/19/23 12/19/23 Range/Units 18:45 20:05 20:08 WBC (3.8-10.6) k/uL RBC (4.30-5.90) m/uL Hgb (13.0-17.5) gm/dL Hct (39.0-53.0) % MCHC (31.0-37.0) g/dL RDW (11.5-15.5) % Plt Count (150-450) k/uL Neutrophils # (1.3-7.7) k/uL Monocytes # (0-1.0) k/uL VBG pH (7.31-7.41) VBG pCO2 (37-51) mmHg VBG HCO3 (24-28) mmol/L Sodium 146 H (137-145) mmol/L Potassium (3.5-5.1) mmol/L Chloride 117 H (98-107) mmol/L Carbon Dioxide 7 L* (22-30) mmol/L BUN 26 H (9-20) mg/dL Glucose 234 H (74-99) mg/dL POC Glucose (mg/dL) 312 H 225 H (70-110) mg/dL Alkaline Phosphatase (38-126) U/L Urine Protein (Negative) Urine Glucose (UA) (Negative) Urine Ketones (Negative) 12/19/23 12/19/23 12/19/23 Range/Units 21:35 22:35 23:25 WBC (3.8-10.6) k/uL RBC (4.30-5.90) m/uL Hgb (13.0-17.5) gm/dL Hct (39.0-53.0) % MCHC (31.0-37.0) g/dL RDW (11.5-15.5) % Plt Count (150-450) k/uL Neutrophils # (1.3-7.7) k/uL Monocytes # (0-1.0) k/uL VBG pH (7.31-7.41) VBG pCO2 (37-51) mmHg VBG HCO3 (24-28) mmol/L Sodium (137-145) mmol/L Potassium (3.5-5.1) mmol/L Chloride (98-107) mmol/L Carbon Dioxide (22-30) mmol/L BUN (9-20) mg/dL Glucose (74-99) mg/dL POC Glucose (mg/dL) 287 H 313 H 298 H (70-110) mg/dL Alkaline Phosphatase (38-126) U/L Urine Protein (Negative) Urine Glucose (UA) (Negative) Urine Ketones (Negative) 12/20/23 12/20/23 12/20/23 Range/Units 00:30 00:36 01:34 WBC (3.8-10.6) k/uL RBC (4.30-5.90) m/uL Hgb (13.0-17.5) gm/dL Hct (39.0-53.0) % MCHC (31.0-37.0) g/dL RDW (11.5-15.5) % Plt Count (150-450) k/uL Neutrophils # (1.3-7.7) k/uL Monocytes # (0-1.0) k/uL VBG pH (7.31-7.41) VBG pCO2 (37-51) mmHg VBG HCO3 (24-28) mmol/L Sodium (137-145) mmol/L Potassium (3.5-5.1) mmol/L Chloride 117 H (98-107) mmol/L Carbon Dioxide 9 L* (22-30) mmol/L BUN 25 H (9-20) mg/dL Glucose 218 H (74-99) mg/dL POC Glucose (mg/dL) 190 H 181 H (70-110) mg/dL Alkaline Phosphatase (38-126) U/L Urine Protein (Negative) Urine Glucose (UA) (Negative) Urine Ketones (Negative) 12/20/23 12/20/23 12/20/23 Range/Units 02:31 03:32 04:34 WBC (3.8-10.6) k/uL RBC (4.30-5.90) m/uL Hgb (13.0-17.5) gm/dL Hct (39.0-53.0) % MCHC (31.0-37.0) g/dL RDW (11.5-15.5) % Plt Count (150-450) k/uL Neutrophils # (1.3-7.7) k/uL Monocytes # (0-1.0) k/uL VBG pH (7.31-7.41) VBG pCO2 (37-51) mmHg VBG HCO3 (24-28) mmol/L Sodium (137-145) mmol/L Potassium (3.5-5.1) mmol/L Chloride (98-107) mmol/L Carbon Dioxide (22-30) mmol/L BUN (9-20) mg/dL Glucose (74-99) mg/dL POC Glucose (mg/dL) 169 H 140 H 141 H (70-110) mg/dL Alkaline Phosphatase (38-126) U/L Urine Protein (Negative) Urine Glucose (UA) (Negative) Urine Ketones (Negative) 12/20/23 12/20/23 12/20/23 Range/Units 05:45 05:58 05:58 WBC 21.1 H (3.8-10.6) k/uL RBC 4.00 L (4.30-5.90) m/uL Hgb 11.0 L (13.0-17.5) gm/dL Hct 35.2 L (39.0-53.0) % MCHC (31.0-37.0) g/dL RDW 17.3 H (11.5-15.5) % Plt Count 520 H (150-450) k/uL Neutrophils # 16.4 H (1.3-7.7) k/uL Monocytes # 1.4 H (0-1.0) k/uL VBG pH (7.31-7.41) VBG pCO2 (37-51) mmHg VBG HCO3 (24-28) mmol/L Sodium (137-145) mmol/L Potassium (3.5-5.1) mmol/L Chloride 114 H (98-107) mmol/L Carbon Dioxide 15 L (22-30) mmol/L BUN 21 H (9-20) mg/dL Glucose 128 H (74-99) mg/dL POC Glucose (mg/dL) 124 H (70-110) mg/dL Alkaline Phosphatase (38-126) U/L Urine Protein (Negative) Urine Glucose (UA) (Negative) Urine Ketones (Negative) 12/20/23 12/20/23 Range/Units 07:04 08:04 WBC (3.8-10.6) k/uL RBC (4.30-5.90) m/uL Hgb (13.0-17.5) gm/dL Hct (39.0-53.0) % MCHC (31.0-37.0) g/dL RDW (11.5-15.5) % Plt Count (150-450) k/uL Neutrophils # (1.3-7.7) k/uL Monocytes # (0-1.0) k/uL VBG pH (7.31-7.41) VBG pCO2 (37-51) mmHg VBG HCO3 (24-28) mmol/L Sodium (137-145) mmol/L Potassium (3.5-5.1) mmol/L Chloride (98-107) mmol/L Carbon Dioxide (22-30) mmol/L BUN (9-20) mg/dL Glucose (74-99) mg/dL POC Glucose (mg/dL) 141 H 195 H (70-110) mg/dL Alkaline Phosphatase (38-126) U/L Urine Protein (Negative) Urine Glucose (UA) (Negative) Urine Ketones (Negative) Thrombosis Risk Factor Assmnt - Choose All That Apply Any of the Below Risk Factors Present?: No Assessment and Plan Assessment: Acute diabetic ketoacidosis, present on admission Diabetes mellitus with hyperglycemia Nonadherence to medication Dehydration secondary to above Metabolic acidosis secondary to above improving Chronic anemia Chronic leukocytosis with no evidence of infection. No need for antibiotics for now as risk more than benefit Plan: Continue with insulin drip and switch to His home dose of Lantus and Levemir. He was taking Levemir 30 units and NovoLog 7 units with meal Will start diabetic diet when he starts to eat Currently continue with insulin drip and IV fluids per protocol Importance of adherence to medication are explained for the patient Importance of staying in the hospital explained for the patient in details and patient was counseled against leaving AMA with risk including but not limited to risk of recurrent DKA and/or are explained for him and he verbalized understanding and acceptance GI prophylaxis, Protonix DVT prophylaxis: Subcutaneous heparin Prognosis is guarded
[2023-12-20] MEDS: HEPARIN SODIUM,PORCINE 5,000 UNIT/ML 1 ML VIAL SQ SCH (09:50)
[2023-12-20] MEDS: PANTOPRAZOLE 40 MG/10 ML VIAL IV SCH (09:50)
[2023-12-20] MEDS: LOSARTAN 50 MG TAB PO SCH (09:50)
[2023-12-20 10:02] LABS: Glucose,Whole Blood 241 mg/dL (70-110)
[2023-12-20 11:02] LABS: Glucose,Whole Blood 225 mg/dL (70-110)
[2023-12-20 12:19] VITALS: BMI 17.3
[2023-12-20 12:22] LABS: Glucose,Whole Blood 282 mg/dL (70-110)
[2023-12-20 12:27] LABS: ALT 21 U/L (4-49); AST 20 U/L (17-59); African American GFR (CKD) >90 (>60 ml/min/1.73 sqM); Albumin 3.8 g/dL (3.5-5.0); Alkaline Phosphatase 122 U/L (38-126); Anion Gap 10 mmol/L; Blood Urea Nitrogen 17 mg/dL (9-20); Calcium 8.4 mg/dL (8.4-10.2); Carbon Dioxide 17 mmol/L (22-30); Chloride 106 mmol/L (98-107); Glucose 230 mg/dL (74-99); Non-African American GFR(CKD) >90 (>60 ml/min/1.73 sqM); Potassium 4.5 mmol/L (3.5-5.1); Sodium 133 mmol/L (137-145); Total Bilirubin 0.4 mg/dL (0.2-1.3); Total Protein 6.2 g/dL (6.3-8.2)
[2023-12-20 13:32] LABS: Glucose,Whole Blood 355 mg/dL (70-110)
[2023-12-20 14:52] LABS: Glucose,Whole Blood 294 mg/dL (70-110)
[2023-12-20 16:09] LABS: Glucose,Whole Blood 238 mg/dL (70-110)
[2023-12-20 16:34] LABS: ALT 21 U/L (4-49); AST 20 U/L (17-59); African American GFR (CKD) >90 (>60 ml/min/1.73 sqM); Albumin 3.6 g/dL (3.5-5.0); Alkaline Phosphatase 105 U/L (38-126); Anion Gap 9 mmol/L; Blood Urea Nitrogen 13 mg/dL (9-20); Calcium 8.5 mg/dL (8.4-10.2); Carbon Dioxide 17 mmol/L (22-30); Chloride 106 mmol/L (98-107); Glucose 244 mg/dL (74-99); Non-African American GFR(CKD) >90 (>60 ml/min/1.73 sqM); Potassium 4.1 mmol/L (3.5-5.1); Sodium 132 mmol/L (137-145); Total Bilirubin 0.4 mg/dL (0.2-1.3); Total Protein 6.1 g/dL (6.3-8.2)
[2023-12-20 17:20] LABS: Glucose,Whole Blood 288 mg/dL (70-110)
[2023-12-20] MEDS ORDERED: ACETAMINOPHEN TAB 500 MG TAB PO PRN (17:55)
[2023-12-20] MEDS ORDERED: ETODOLAC 300 MG CAPSULE PO PRN (17:55)
[2023-12-20] MEDS ORDERED: METOCLOPRAMIDE 10 MG TAB PO PRN (17:55)
[2023-12-20 17:59] LABS: Glucose,Whole Blood 353 mg/dL (70-110)
[2023-12-20] MEDS ORDERED: ERGOCALCIFEROL 1,250 MCG (50,000 IU) CAPSULE PO SCH (18:00)
[2023-12-20 20:10] LABS: Glucose,Whole Blood 240 mg/dL (70-110)
[2023-12-20] MEDS: MIRTAZAPINE 15 MG TAB PO SCH (20:30)
[2023-12-20] MEDS: FAMOTIDINE 20 MG TAB PO SCH (20:31)
[2023-12-20 21:16] LABS: AST 25 U/L (17-59); African American GFR (CKD) >90 (>60 ml/min/1.73 sqM); Albumin 3.7 g/dL (3.5-5.0); Alkaline Phosphatase 96 U/L (38-126); Anion Gap 6 mmol/L; Blood Urea Nitrogen 9 mg/dL (9-20); Calcium 8.7 mg/dL (8.4-10.2); Carbon Dioxide 22 mmol/L (22-30); Chloride 106 mmol/L (98-107); Glucose 208 mg/dL (74-99); Non-African American GFR(CKD) >90 (>60 ml/min/1.73 sqM); Sodium 134 mmol/L (137-145); Total Bilirubin 0.4 mg/dL (0.2-1.3); Total Protein 6.2 g/dL (6.3-8.2)
[2023-12-20 21:17] LABS: Glucose,Whole Blood 185 mg/dL (70-110)
[2023-12-20 21:23] LABS: ALT 28 U/L (4-49)
[2023-12-20] MEDS: INSULIN DETEMIR (LEVEMIR) 100 UNIT/ML SYR SQ ONE (22:14)
[2023-12-21 01:57] LABS: Glucose,Whole Blood 164 mg/dL (70-110)
[2023-12-21] MEDS: INSULIN ASPART (NovoLOG) 100 UNIT/ML VIAL SQ SCH ×2 (02:37→06:20)
[2023-12-21 06:06] LABS: Glucose,Whole Blood 74 mg/dL (70-110)
[2023-12-21 06:19] VITALS: PULSE 86; RESP 16
[2023-12-21] MEDS ORDERED: INSULIN LISPRO (For Pump) 100 UNIT/ML VIAL SQ-PUMP SCH (07:30)
[2023-12-21 07:32] LABS: Anisocytosis Slight; Basophils % (A) 1 %; Eosinophils # (A) 0.2 k/uL (0-0.7); Eosinophils % (A) 2 %; HCT 35.4 % (39.0-53.0); HGB 11.3 gm/dL (13.0-17.5); Hypochromasia Moderate; Lymphocytes % (A) 25 %; MCH 27.8 pg (25.0-35.0); MCHC 31.9 g/dL (31.0-37.0); MCV 87.1 fL (80.0-100.0); Mean Platelet Volume 6.5; Monocytes # (A) 0.5 k/uL (0-1.0); Monocytes % (A) 6 %; Neutrophils # (A) 5.3 k/uL (1.3-7.7); Neutrophils % (A) 65 %; Platelet Count 396 k/uL (150-450); RBC 4.06 m/uL (4.30-5.90); RDW 17.1 % (11.5-15.5); WBC 8.3 k/uL (3.8-10.6)
[2023-12-21 08:05] LABS: African American GFR (CKD) >90 (>60 ml/min/1.73 sqM); Anion Gap 5 mmol/L; Blood Urea Nitrogen 8 mg/dL (9-20); Calcium 8.7 mg/dL (8.4-10.2); Carbon Dioxide 24 mmol/L (22-30); Chloride 105 mmol/L (98-107); Glucose 92 mg/dL (74-99); Non-African American GFR(CKD) >90 (>60 ml/min/1.73 sqM); Potassium 3.9 mmol/L (3.5-5.1); Sodium 134 mmol/L (137-145)
[2023-12-21] MEDS: FERROUS SULFATE 325 MG TAB PO SCH (09:26)
[2023-12-21 10:01] VITALS: BP 124/86; TEMP 98.1
[2023-12-21] MEDS: INSULIN DETEMIR (LEVEMIR) 100 UNIT/ML SYR SQ SCH (10:04)
[2023-12-21 11:41] LABS: Glucose,Whole Blood 198 mg/dL (70-110)
== END 2023-12-21 14:16 | disposition home or self-care (01) | DRG 639 ==
LOC: EC 13:59 → 3SCARD 17:18
PROVIDERS: ADMIT Internal Medicine; ATTEND Internal Medicine
DX: E10.10 Type 1 diabetes mellitus with ketoacidosis without coma (principal); D72.829 Elevated white blood cell count, unspecified; D64.9 Anemia, unspecified; E86.0 Dehydration; F32.A Depression, unspecified; F41.9 Anxiety disorder, unspecified; J45.909 Unspecified asthma, uncomplicated; F17.210 Nicotine dependence, cigarettes, uncomplicated; F17.290 Nicotine dependence, other tobacco product, uncomplicated; T38.3X6A Underdosing of insulin and oral hypoglycemic [antidiabetic] drugs, initial encounter; Z91.128 Patient's intentional underdosing of medication regimen for other reason; Z79.4 Long term (current) use of insulin; Z79.899 Other long term (current) drug therapy
CPT/HCPCS: 36415; 80048; 80051; 80053; 81003; 82009; 82150; 82565; 82803; 82947; 83036; 83605; 83690; 84100; 84520; 85025; 93005; 96361; 96374; 96375; 99291

== ENCOUNTER 2023-12-25 21:24 | Inpatient (IN) | payer OTHER ==
[2023-12-25] MEDS ORDERED: Potassium Replacement Protocol 1 EACH MISC MISCELLANE PRN (21:41)
[2023-12-25] MEDS ORDERED: DEXTROSE 50% SYRINGE 50 ML IVP PRN ×2 (21:41)
[2023-12-25] MEDS ORDERED: Magnesium Replacement Protocol 1 EACH MISC MISCELLANE PRN (21:41)
--- NOTE | 2023-12-25 21:47 | ED ---
Nausea/Vomiting/Diarrhea HPI - General Stated complaint: Hyperglycemia/DKA Time Seen by Provider: 12/25/23 21:30 Source: patient, EMS Mode of arrival: EMS Limitations: altered mental status - History of Present Illness Initial comments: This patient is a 28-year-old man with history of diabetes who arrives by ambulance to evaluation for nausea vomiting and weakness. Patient has had multiple episodes of DKA. The patient tested high on the Accu-Chek by EMS. He did have an episode of emesis during transport with trace of coffee-ground material. MD complaint: nausea, vomiting, other -: unknown Description of Vomiting: coffee grounds Associated Abdominal Pain: Yes Location: diffuse Improves with: none Worsens with: none - Related Data Home Medications Medication Instructions Recorded Confirmed Ergocalciferol [Vitamin D2 (1250 1,250 mcg PO Q30D 04/29/23 01/19/24 Mcg = 20280 Iu)] Famotidine [Pepcid] 20 mg PO BID 04/29/23 01/19/24 Gabapentin 600 mg PO TID 04/29/23 01/19/24 Mirtazapine 7.5 mg PO HS 04/29/23 01/19/24 Insulin Lispro 7 units SQ AC-TID 09/17/23 01/19/24 Ferrous Sulfate [Iron (65 MG 325 mg PO DAILY 10/09/23 01/19/24 Elemental)] Omeprazole 20 mg PO BID 10/30/23 01/19/24 Acetaminophen Tab [Tylenol] 500 - 1,000 mg PO Q6H PRN 12/19/23 01/19/24 Insulin Glargine,Hum.rec.anlog 30 units SQ DAILY@0700 12/26/23 01/19/24 [Lantus Solostar Pen] Losartan [Cozaar] 50 mg PO DAILY 01/19/24 01/19/24 Previous Rx's Medication Instructions Recorded Atorvastatin [Lipitor] 20 mg PO HS #30 tab 09/26/23 Metoclopramide [Reglan] 10 mg PO TID PRN #15 tab 11/01/23 Allergies Allergy/AdvReac Type Severity Reaction Status Date / Time No Known Allergies Allergy Verified 01/19/24 08:57 Review of Systems ROS Statement: Those systems with pertinent positive or pertinent negative responses have been documented in the HPI. ROS Other: All systems not noted in ROS Statement are negative. Limitations: ROS unobtainable due to patients medical condition Cardiovascular: Denies: chest pain Gastrointestinal: Reports: abdominal pain, vomiting Musculoskeletal: Denies: back pain Neurological: Denies: headache Past Medical History Past Medical History: Asthma, Diabetes Mellitus, Neurologic Disorder, Skin Disorder Additional Past Medical History / Comment(s): IDDM type I, neuropathy bilateral feet, DKA, eczema. History of Any Multi-Drug Resistant Organisms: None Reported Past Surgical History: Adenoidectomy Additional Past Surgical History / Comment(s): gastritis Past Anesthesia/Blood Transfusion Reactions: No Reported Reaction Past Psychological History: Anxiety, Depression Additional Psychological History / Comment(s): Pt has had multiple psychiatric admissions for depression/suicide attempts. Smoking Status: Former smoker Past Alcohol Use History: None Reported Additional Past Alcohol Use History / Comment(s): Pt started smoking cigarettes Pt started occasional vaping in 2009. patient states he hasnt had alcohol in one year. Past Drug Use History: None Reported Additional Drug Use History / Comment(s): almost daily - Past Family History Mother Family Medical History: CVA/TIA Additional Family Medical History / Comment(s): TIA Father Family Medical History: Hyperlipidemia, Hypertension Additional Family Medical History / Comment(s): . General Exam General appearance: obtunded Head exam: Present: atraumatic, normocephalic Eye exam: Present: normal appearance. Absent: scleral icterus, conjunctival injection ENT exam: Present: mucous membranes dry Neck exam: Present: normal inspection Respiratory exam: Present: normal lung sounds bilaterally. Absent: respiratory distress, wheezes, rales, rhonchi, stridor, accessory muscle use Cardiovascular Exam: Present: regular rate, normal rhythm, normal heart sounds. Absent: systolic murmur, diastolic murmur, rubs, gallop GI/Abdominal exam: Present: soft. Absent: distended, tenderness, guarding, rebound, rigid, mass Extremities exam: Present: normal inspection, normal capillary refill. Absent: pedal edema, calf tenderness Back exam: Present: normal inspection. Absent: CVA tenderness (R), CVA tenderness (L) Neurological exam: Present: altered (Patient is somnolent but arousable.) Skin exam: Present: warm, dry, intact, normal color. Absent: rash Course Vital Signs 12/25/23 12/25/23 12/25/23 22:06 22:25 23:00 Temperature 97.4 F L Pulse Rate 131 H 131 H Pulse Rate [ Motors And Generators Inspector ] Respiratory 18 18 Rate Blood Pressure 76/38 96/42 O2 Sat by Pulse 96 99 Oximetry 12/25/23 12/26/23 12/26/23 23:25 00:00 00:30 Temperature Pulse Rate 129 H 125 H 117 H Pulse Rate [ Motors And Generators Inspector ] Respiratory 20 20 20 Rate Blood Pressure 94/50 92/52 96/52 O2 Sat by Pulse 99 99 Oximetry 12/26/23 12/26/23 12/26/23 01:02 02:31 03:10 Temperature Pulse Rate 120 H 126 H 121 H Pulse Rate [ Motors And Generators Inspector ] Respiratory 16 18 20 Rate Blood Pressure 109/68 103/61 128/89 O2 Sat by Pulse 99 99 97 Oximetry 12/26/23 12/26/23 12/26/23 04:00 04:44 05:30 Temperature Pulse Rate 117 H 121 H Pulse Rate [ 118 H Motors And Generators Inspector ] Respiratory 22 20 Rate Blood Pressure 107/64 127/86 O2 Sat by Pulse 99 Oximetry 12/26/23 12/26/23 12/26/23 06:00 07:35 08:10 Temperature 97.9 F Pulse Rate 120 H 126 H 118 H Pulse Rate [ Motors And Generators Inspector ] Respiratory 18 20 22 Rate Blood Pressure 127/86 111/72 136/94 O2 Sat by Pulse 98 100 Oximetry 12/26/23 12/26/23 12/26/23 09:00 09:01 10:01 Temperature 97.7 F Pulse Rate 118 H 131 H Pulse Rate [ 116 H Motors And Generators Inspector ] Respiratory 20 18 Rate Blood Pressure 132/94 120/83 O2 Sat by Pulse 100 100 Oximetry 12/26/23 12/26/23 12/26/23 11:14 12:01 12:42 Temperature 98.3 F 98.4 F Pulse Rate 122 H 121 H 115 H Pulse Rate [ Motors And Generators Inspector ] Respiratory 20 20 18 Rate Blood Pressure 131/88 109/66 123/74 O2 Sat by Pulse 99 100 97 Oximetry Medical Decision Making - Medical Decision Making The patient had chest x-ray that I interpreted as negative for acute infiltrate, pneumothorax, congestive heart failure Was pt. sent in by a medical professional or institution (, PA, MANAGER PHYSICAL, urgent care, hospital, or care home...) When possible be specific @ -[No] Did you speak to anyone other than the patient for history (EMS, parent, family, police, friend...)? What history was obtained from this source @ -[No] Did you review nursing and triage notes (agree or disagree)? Why? @ -[I reviewed and agree with nursing and triage notes] Were old charts reviewed (outside hosp., previous admission, EMS record, old EKG, old radiological studies, urgent care reports/EKG's, care home records)? Report findings @ -[No old charts were reviewed] Differential Diagnosis (chest pain, altered mental status, abdominal pain women, abdominal pain men, vaginal bleeding, weakness, fever, dyspnea, syncope, headache, dizziness, GI bleed, back pain, seizure, CVA, palpatations, mental health, musculoskeletal)? @ -[Differential Altered Mental Status: Hypoglycemia, DKA, hypercapnia, ETOH, overdose, CO poisoning, trauma, myxedema coma, HTN encephalopathy, infection, encephalitis, psychosis, intercranial hemorrhage, hepatic encephalopathy, meningitis, CVA, this is not meant to be an all-inclusive list EKG interpreted by me (3pts min.). @ -[I interpreted as above X-rays interpreted by me (1pt min.). @ -[I interpreted as above CT interpreted by me (1pt min.). @ -[None done] U/S interpreted by me (1pt. min.). @ -[None done] What testing was considered but not performed or refused? (CT, X-rays, U/S, labs)? Why? @ -[None] What meds were considered but not given or refused? Why? @ -[None] Did you discuss the management of the patient with other professionals (professionals i.e. , PA, MANAGER PHYSICAL, lab, RT, psych nurse, social service liaison, diesel plant operator, teacher, staff mine warfare officer, case picker)? Give summary @ -[Discussed with admitting physician and treatment recommendations incorporated Was smoking cessation discussed for >3mins.? @ -[No] Was critical care preformed (if so, how long)? @ -[Yes, 35 minutes Were there social determinants of health that impacted care today? How? (Homelessness, low income, unemployed, alcoholism, drug addiction, transportation, low edu. Level, literacy, decrease access to med. care, [facility] [facility], rehab)? @ -[No] Was there de-escalation of care discussed even if they declined (Discuss DNR or withdrawal of care, Hospice)? DNR status @ -[No] What co-morbidities impacted this encounter? (DM, HTN, Smoking, COPD, CAD, Cancer, CVA, ARF, Chemo, Hep., AIDS, mental health diagnosis, sleep apnea, morbid obesity)? @ -[None] Was patient admitted / discharged? Hospital course, mention meds given and route, prescriptions, significant lab abnormalities, going to OR and other p ertinent info. @ -[Patient is a 28-year-old male patient with type 1 diabetes and history of noncompliance. Presents in DKA. Patient started on fluids, insulin, admitted with consultation for pulmonology for critical care. Undiagnosed new problem with uncertain prognosis? @ -[No] Drug Therapy requiring intensive monitoring for toxicity (Heparin, Nitro, Insulin, Cardizem)? @ -[Insulin Were any procedures done? @ -[No] Diagnosis/symptom? @ -Acute diabetic ketoacidosis Acute, or Chronic, or Acute on Chronic? @ -Acute Uncomplicated (without systemic symptoms) or Complicated (systemic symptoms)? @ -[Complicated by mental status change Side effects of treatment? @ -[No] Exacerbation, Progression, or Severe Exacerbation? @ -[No] Poses a threat to life or bodily function? How? (Chest pain, [place], [place], pneumonia, PE, COPD, DKA, ARF, appy, cholecystitis, CVA, Diverticulitis, Homicidal, Rachael cidal, threat to staff... and all critical care pts) @ -[Yes - Lab Data Result diagrams: 12/27/23 05:51 12/27/23 05:51 Lab Results 12/25/23 12/25/23 12/25/23 Range/Units 22:23 22:23 22:23 WBC 18.7 H (3.8-10.6) k/uL RBC 3.66 L (4.30-5.90) m/uL Hgb 13.0 (13.0-17.5) gm/dL Hct 35.8 L (39.0-53.0) % MCV 97.8 D (80.0-100.0) fL MCH 35.5 H (25.0-35.0) pg MCHC 36.3 (31.0-37.0) g/dL RDW 16.3 H (11.5-15.5) % Plt Count 381 (150-450) k/uL MPV 7.8 Neutrophils % 87 % Lymphocytes % 9 % Monocytes % 3 % Eosinophils % 0 % Basophils % 0 % Neutrophils # 16.3 H (1.3-7.7) k/uL Lymphocytes # 1.8 (1.0-4.8) k/uL Monocytes # 0.5 (0-1.0) k/uL Eosinophils # 0.1 (0-0.7) k/uL Basophils # 0.1 (0-0.2) k/uL Hypochromasia Marked Anisocytosis Slight Macrocytosis Slight VBG pH (7.31-7.41) VBG pCO2 (37-51) mmHg VBG HCO3 (24-28) mmol/L Sodium 137 (137-145) mmol/L Potassium 6.7 H* (3.5-5.1) mmol/L Chloride 96 L (98-107) mmol/L Carbon Dioxide <5 L* (22-30) mmol/L Anion Gap mmol/L BUN 34 H (9-20) mg/dL Creatinine 1.43 H (0.66-1.25) mg/dL Est GFR (CKD-EPI)AfAm 78 (>60 ml/min/1.73 sqM) Est GFR (CKD-EPI)NonAf 68 (>60 ml/min/1.73 sqM) Glucose 862 H* (74-99) mg/dL POC Glucose (mg/dL) (70-110) mg/dL POC Glu Mask Design Engineer ID Lactic Ac Sepsis Rflx Plasma Lactic Acid Len 3.6 H* (0.7-2.0) mmol/L Calcium 9.8 (8.4-10.2) mg/dL Phosphorus (2.5-4.5) mg/dL Total Bilirubin 0.5 (0.2-1.3) mg/dL AST 20 (17-59) U/L ALT 22 (4-49) U/L Alkaline Phosphatase 161 H (38-126) U/L Total Protein 7.0 (6.3-8.2) g/dL Albumin 5.0 (3.5-5.0) g/dL Acetone, Qual Positive (Negative) 08/01/24 08/01/24 08/01/24 Range/Units 22:55 23:03 23:57 WBC (3.8-10.6) k/uL RBC (4.30-5.90) m/uL Hgb (13.0-17.5) gm/dL Hct (39.0-53.0) % MCV (80.0-100.0) fL MCH (25.0-35.0) pg MCHC (31.0-37.0) g/dL RDW (11.5-15.5) % Plt Count (150-450) k/uL MPV Neutrophils % % Lymphocytes % % Monocytes % % Eosinophils % % Basophils % % Neutrophils # (1.3-7.7) k/uL Lymphocytes # (1.0-4.8) k/uL Monocytes # (0-1.0) k/uL Eosinophils # (0-0.7) k/uL Basophils # (0-0.2) k/uL Hypochromasia Anisocytosis Macrocytosis VBG pH 7.10 L* (7.31-7.41) VBG pCO2 22 L (37-51) mmHg VBG HCO3 7 L* (24-28) mmol/L Sodium (137-145) mmol/L Potassium (3.5-5.1) mmol/L Chloride (98-107) mmol/L Carbon Dioxide (22-30) mmol/L Anion Gap mmol/L BUN (9-20) mg/dL Creatinine (0.66-1.25) mg/dL Est GFR (CKD-EPI)AfAm (>60 ml/min/1.73 sqM) Est GFR (CKD-EPI)NonAf (>60 ml/min/1.73 sqM) Glucose (74-99) mg/dL POC Glucose (mg/dL) >600 H* (70-110) mg/dL POC Glu Mask Design Engineer ID Rosalinda Fletcher Lactic Ac Sepsis Rflx Y Plasma Lactic Acid Len (0.7-2.0) mmol/L Calcium (8.4-10.2) mg/dL Phosphorus (2.5-4.5) mg/dL Total Bilirubin (0.2-1.3) mg/dL AST (17-59) U/L ALT (4-49) U/L Alkaline Phosphatase (38-126) U/L Total Protein (6.3-8.2) g/dL Albumin (3.5-5.0) g/dL Acetone, Qual (Negative) 12/26/23 12/26/23 12/26/23 Range/Units 00:04 00:56 01:01 WBC (3.8-10.6) k/uL RBC (4.30-5.90) m/uL Hgb (13.0-17.5) gm/dL Hct (39.0-53.0) % MCV (80.0-100.0) fL MCH (25.0-35.0) pg MCHC (31.0-37.0) g/dL RDW (11.5-15.5) % Plt Count (150-450) k/uL MPV Neutrophils % % Lymphocytes % % Monocytes % % Eosinophils % % Basophils % % Neutrophils # (1.3-7.7) k/uL Lymphocytes # (1.0-4.8) k/uL Monocytes # (0-1.0) k/uL Eosinophils # (0-0.7) k/uL Basophils # (0-0.2) k/uL Hypochromasia Anisocytosis Macrocytosis VBG pH (7.31-7.41) VBG pCO2 (37-51) mmHg VBG HCO3 (24-28) mmol/L Sodium 145 (137-145) mmol/L Potassium 5.3 H (3.5-5.1) mmol/L Chloride 110 H (98-107) mmol/L Carbon Dioxide <5 L* (22-30) mmol/L Anion Gap mmol/L BUN 34 H (9-20) mg/dL Creatinine 1.26 H (0.66-1.25) mg/dL Est GFR (CKD-EPI)AfAm >90 (>60 ml/min/1.73 sqM) Est GFR (CKD-EPI)NonAf 78 (>60 ml/min/1.73 sqM) Glucose 472 H (74-99) mg/dL POC Glucose (mg/dL) 564 H* 459 H (70-110) mg/dL POC Glu Mask Design Engineer ID Rosalinda Fletcher Andrea Lactic Ac Sepsis Rflx Plasma Lactic Acid Len (0.7-2.0) mmol/L Calcium (8.4-10.2) mg/dL Phosphorus 6.2 H (2.5-4.5) mg/dL Total Bilirubin (0.2-1.3) mg/dL AST (17-59) U/L ALT (4-49) U/L Alkaline Phosphatase (38-126) U/L Total Protein (6.3-8.2) g/dL Albumin (3.5-5.0) g/dL Acetone, Qual (Negative) 12/26/23 12/26/23 Range/Units 02:20 02:24 WBC (3.8-10.6) k/uL RBC (4.30-5.90) m/uL Hgb (13.0-17.5) gm/dL Hct (39.0-53.0) % MCV (80.0-100.0) fL MCH (25.0-35.0) pg MCHC (31.0-37.0) g/dL RDW (11.5-15.5) % Plt Count (150-450) k/uL MPV Neutrophils % % Lymphocytes % % Monocytes % % Eosinophils % % Basophils % % Neutrophils # (1.3-7.7) k/uL Lymphocytes # (1.0-4.8) k/uL Monocytes # (0-1.0) k/uL Eosinophils # (0-0.7) k/uL Basophils # (0-0.2) k/uL Hypochromasia Anisocytosis Macrocytosis VBG pH (7.31-7.41) VBG pCO2 (37-51) mmHg VBG HCO3 (24-28) mmol/L Sodium (137-145) mmol/L Potassium (3.5-5.1) mmol/L Chloride (98-107) mmol/L Carbon Dioxide (22-30) mmol/L Anion Gap mmol/L BUN (9-20) mg/dL Creatinine (0.66-1.25) mg/dL Est GFR (CKD-EPI)AfAm (>60 ml/min/1.73 sqM) Est GFR (CKD-EPI)NonAf (>60 ml/min/1.73 sqM) Glucose (74-99) mg/dL POC Glucose (mg/dL) 314 H (70-110) mg/dL POC Glu Mask Design Engineer ID Vagts, Suzin Lactic Ac Sepsis Rflx Plasma Lactic Acid Len 2.1 H* (0.7-2.0) mmol/L Calcium (8.4-10.2) mg/dL Phosphorus (2.5-4.5) mg/dL Total Bilirubin (0.2-1.3) mg/dL AST (17-59) U/L ALT (4-49) U/L Alkaline Phosphatase (38-126) U/L Total Protein (6.3-8.2) g/dL Albumin (3.5-5.0) g/dL Acetone, Qual (Negative) - EKG Data -: EKG Interpreted by [facility] EKG shows normal: sinus rhythm, axis (Right axis deviation), intervals (Normal), QRS complexes (Incomplete right bundle branch block.), ST-T waves (Nonspecific T wave changes though suspect hyperkalemia) Rate: tachycardia (Rate approximately 130s.) Disposition Clinical Impression: Diabetic ketoacidosis associated with type 1 diabetes mellitus, Hyperkalemia Disposition: ADMITTED IP TO THIS [facility] Condition: Critical
[2023-12-25] MEDS: SODIUM CHLORIDE 0.9% 1,000 ML IV ONE ×2 (22:36→23:24)
[2023-12-25] MEDS: SODIUM CHLORIDE 0.9% 1,000 ML IV SCH (22:38)
[2023-12-25] MEDS: INSULIN REGULAR 100 UNIT/ML VIAL (IV) IV STA (22:39)
[2023-12-25] MEDS: SODIUM CHLORIDE 0.9% 1,000 ML IV STA (22:43)
[2023-12-25 22:48] LABS: ALT 22 U/L (4-49); AST 20 U/L (17-59); African American GFR (CKD) 78 (>60 ml/min/1.73 sqM); Alkaline Phosphatase 161 U/L (38-126); Blood Urea Nitrogen 34 mg/dL (9-20); Calcium 9.8 mg/dL (8.4-10.2); Chloride 96 mmol/L (98-107); Non-African American GFR(CKD) 68 (>60 ml/min/1.73 sqM); Sodium 137 mmol/L (137-145); Total Bilirubin 0.5 mg/dL (0.2-1.3)
[2023-12-25] MEDS: INSULIN REGULAR 100 UNIT in SODIUM CHLORIDE 0.9% 100 ML IV SCH (22:56)
[2023-12-25 23:00] LABS: Glucose 862 mg/dL (74-99)
[2023-12-25 23:00] LABS: Glucose,Whole Blood >600 mg/dL (70-110)
[2023-12-25 23:01] LABS: Carbon Dioxide <5 mmol/L (22-30); Potassium 6.7 mmol/L (3.5-5.1)
[2023-12-25 23:17] LABS: Anisocytosis Slight; Basophils # (A) 0.1 k/uL (0-0.2); Basophils % (A) 0 %; Eosinophils # (A) 0.1 k/uL (0-0.7); Eosinophils % (A) 0 %; HCT 35.8 % (39.0-53.0); Hypochromasia Marked; Lymphocytes # (A) 1.8 k/uL (1.0-4.8); Lymphocytes % (A) 9 %; MCH 35.5 pg (25.0-35.0); MCHC 36.3 g/dL (31.0-37.0); Macrocytosis Slight; Mean Platelet Volume 7.8; Monocytes # (A) 0.5 k/uL (0-1.0); Monocytes % (A) 3 %; Neutrophils # (A) 16.3 k/uL (1.3-7.7); Neutrophils % (A) 87 %; Platelet Count 381 k/uL (150-450); RBC 3.66 m/uL (4.30-5.90); RDW 16.3 % (11.5-15.5); WBC 18.7 k/uL (3.8-10.6)
[2023-12-25 23:32] LABS: MCV 97.8 fL (80.0-100.0)
[2023-12-26 00:10] LABS: Glucose,Whole Blood 564 mg/dL (70-110)
[2023-12-26 00:35] LABS: VBG PH 7.1 (7.31-7.41)
[2023-12-26 01:03] LABS: Glucose,Whole Blood 459 mg/dL (70-110)
[2023-12-26 01:37] LABS: African American GFR (CKD) >90 (>60 ml/min/1.73 sqM); Blood Urea Nitrogen 34 mg/dL (9-20); Chloride 110 mmol/L (98-107); Glucose 472 mg/dL (74-99); Non-African American GFR(CKD) 78 (>60 ml/min/1.73 sqM); Phosphorus 6.2 mg/dL (2.5-4.5); Potassium 5.3 mmol/L (3.5-5.1); Sodium 145 mmol/L (137-145)
[2023-12-26 01:40] LABS: Carbon Dioxide <5 mmol/L (22-30)
[2023-12-26 02:25] LABS: Glucose,Whole Blood 314 mg/dL (70-110)
[2023-12-26 03:08] LABS: Glucose,Whole Blood 240 mg/dL (70-110)
[2023-12-26 04:07] LABS: Glucose,Whole Blood 198 mg/dL (70-110)
[2023-12-26] MEDS: D5-0.45% NACL WITH KCL 20MEQ/L 1,000 ML IV SCH (04:35)
[2023-12-26 05:37] LABS: Glucose,Whole Blood 182 mg/dL (70-110)
[2023-12-26 05:53] LABS: Sodium 147 mmol/L (137-145)
[2023-12-26 05:54] LABS: African American GFR (CKD) >90 (>60 ml/min/1.73 sqM); Anion Gap 16 mmol/L; Blood Urea Nitrogen 34 mg/dL (9-20); Carbon Dioxide 14 mmol/L (22-30); Chloride 117 mmol/L (98-107); Glucose 170 mg/dL (74-99); Non-African American GFR(CKD) >90 (>60 ml/min/1.73 sqM); Phosphorus 3.1 mg/dL (2.5-4.5)
[2023-12-26 05:56] LABS: Potassium 5.3 mmol/L (3.5-5.1)
[2023-12-26 06:25] LABS: Glucose,Whole Blood 151 mg/dL (70-110)
--- NOTE | 2023-12-26 06:58 | XR ---
EXAM: XR Chest, 1 View CLINICAL HISTORY: ITS.REASON XR Reason: MS change TECHNIQUE: Frontal view of the chest. COMPARISON: 07/22/23 FINDINGS: Lungs: Unremarkable. No consolidation. Pleural space: Unremarkable. No pneumothorax. Heart: Unremarkable. No cardiomegaly. Mediastinum: Unremarkable. Normal mediastinal contour. Bones/joints: Unremarkable. No acute fracture. Tubes, lines and devices: Overlying chest leads obscure portion of the chest. IMPRESSION: No acute pulmonary disease
[2023-12-26 07:35] LABS: Glucose,Whole Blood 139 mg/dL (70-110)
[2023-12-26 09:01] LABS: Glucose,Whole Blood 158 mg/dL (70-110)
[2023-12-26 10:04] LABS: Glucose,Whole Blood 155 mg/dL (70-110)
[2023-12-26 11:10] LABS: Glucose,Whole Blood 136 mg/dL (70-110)
[2023-12-26] MEDS: ONDANSETRON 4 MG/2 ML VIAL IVP PRN (11:30)
[2023-12-26 11:44] LABS: Anisocytosis Slight; Basophils # (A) 0.1 k/uL (0-0.2); Basophils % (A) 0 %; Eosinophils # (A) 0.3 k/uL (0-0.7); Eosinophils % (A) 1 %; HGB 11.5 gm/dL (13.0-17.5); Hypochromasia Moderate; Lymphocytes # (A) 2.7 k/uL (1.0-4.8); Lymphocytes % (A) 11 %; MCH 28.6 pg (25.0-35.0); MCHC 32.8 g/dL (31.0-37.0); Mean Platelet Volume 7.3; Monocytes # (A) 1.3 k/uL (0-1.0); Monocytes % (A) 5 %; Neutrophils # (A) 19.8 k/uL (1.3-7.7); Neutrophils % (A) 81 %; Platelet Count 468 k/uL (150-450); RBC 4.01 m/uL (4.30-5.90); RDW 17.4 % (11.5-15.5); WBC 24.4 k/uL (3.8-10.6)
[2023-12-26 11:45] LABS: MCV 87.2 fL (80.0-100.0)
[2023-12-26 12:04] LABS: African American GFR (CKD) >90 (>60 ml/min/1.73 sqM); Anion Gap 13 mmol/L; Blood Urea Nitrogen 29 mg/dL (9-20); Calcium 9.1 mg/dL (8.4-10.2); Carbon Dioxide 16 mmol/L (22-30); Chloride 116 mmol/L (98-107); Glucose 153 mg/dL (74-99); Magnesium 2.3 mg/dL (1.6-2.3); Non-African American GFR(CKD) >90 (>60 ml/min/1.73 sqM); Phosphorus 3.1 mg/dL (2.5-4.5); Potassium 4.6 mmol/L (3.5-5.1); Sodium 145 mmol/L (137-145)
[2023-12-26 12:04] LABS: Glucose,Whole Blood 171 mg/dL (70-110)
[2023-12-26 12:57] LABS: Glucose,Whole Blood 203 mg/dL (70-110)
--- NOTE | 2023-12-26 13:35 | P.CNPUL ---
History of Present Illness Consult date: 12/26/23 Requesting physician: Abhijit Jensen Reason for consult: other (Acute diabetic ketoacidosis, ICU admission) Chief complaint: Nausea vomiting and weakness History of present illness: This is a 28-year-old white male with history of type 1 diabetes, and recurrent frequent episodes of diabetic ketoacidosis requiring hospital admissions mostly because of noncompliance. Patient presented to the ER yesterday with vomiting nausea, weakness, and he was found to be in DKA again. Blood sugar was as high as 862 lactic acid 3.6, bicarb was extremely low, anion gap was extremely high, over 30, patient had positive ketones hence the patient was placed on the DKA protocol, and we were asked to see the patient for ICU admission. I did see the patient down in the ER, his anion gap is down to 13, bicarb is up to 16 from less than 5, blood sugar is improving nonetheless the patient will still require ICU admission for now. Unless his anion gap completely closes and the patient is back on subcu insulin. And on Accu-Cheks with sliding scale patient is still receiving IV fluids in the form of 0.9 normal saline at 150 cc/h. Review of Systems CONSTITUTIONAL: Denies any recent significant weight loss or weight gain. EYES: Denies change in vision. EARS, NOSE, MOUTH, THROAT: Denies headaches, denies sore throat. CARDIOVASCULAR: Denies chest pain, palpitations or syncopal episodes. RESPIRATORY: Denies shortness of breath, cough, congestion or hemoptysis. GASTROINTESTINAL: As noted in HPI GENITOURINARY: Denies hematuria, denies infections. MUSKULOSKELETAL: Denies pain, denies swelling. INTEGUMENTARY: Denies rash, denies eczema. NEUROLOGICAL: Denies recent memory loss, no recent seizure activity. PSYCHIATRIC: Denies anxiety, denies depression. HEMATOLOGIC/LYMPHATIC: Denies anemia, denies enlarged lymph node Past Medical History Past Medical History: Asthma, Diabetes Mellitus, Neurologic Disorder, Skin Disorder Additional Past Medical History / Comment(s): IDDM type I, neuropathy bilateral feet, DKA, eczema. History of Any Multi-Drug Resistant Organisms: None Reported Past Surgical History: Adenoidectomy Additional Past Surgical History / Comment(s): gastritis Past Anesthesia/Blood Transfusion Reactions: No Reported Reaction Past Psychological History: Anxiety, Depression Additional Psychological History / Comment(s): Pt has had multiple psychiatric admissions for depression/suicide attempts. Smoking Status: Former smoker Past Alcohol Use History: None Reported Additional Past Alcohol Use History / Comment(s): Pt started smoking cigarettes Pt started occasional vaping in 2009. patient states he hasnt had alcohol in one year. Past Drug Use History: None Reported Additional Drug Use History / Comment(s): almost daily - Past Family History Mother Family Medical History: CVA/TIA Additional Family Medical History / Comment(s): TIA Father Family Medical History: Hyperlipidemia, Hypertension Additional Family Medical History / Comment(s): . Medications and Allergies Home Medications Medication Instructions Recorded Confirmed Type Ergocalciferol [Vitamin D2 (1250 1,250 mcg PO Q30D 04/29/23 12/26/23 History Mcg = 41415 Iu)] Famotidine [Pepcid] 20 mg PO BID 04/29/23 12/26/23 History Gabapentin 600 mg PO TID 04/29/23 12/26/23 History Mirtazapine 7.5 mg PO HS 04/29/23 12/26/23 History Insulin Lispro 7 units SQ AC-TID 09/17/23 12/26/23 History Atorvastatin [Lipitor] 20 mg PO HS #30 tab 09/26/23 12/26/23 Rx Ferrous Sulfate [Iron (65 MG 325 mg PO DAILY 10/09/23 12/26/23 History Elemental)] Omeprazole 20 mg PO BID 10/30/23 12/26/23 History Metoclopramide [Reglan] 10 mg PO TID PRN #15 tab 11/01/23 12/26/23 Rx Losartan [Cozaar] 100 mg PO DAILY #30 tab 11/09/23 12/26/23 Rx Ibuprofen [Motrin] 600 mg PO Q8HR PRN #30 tab 11/18/23 12/26/23 Rx Acetaminophen Tab [Tylenol] 500 - 1,000 mg PO Q6H PRN 12/19/23 12/26/23 History Insulin Glargine,Hum.rec.anlog 30 units SQ DAILY@0700 12/26/23 12/26/23 History [Lantus Solostar Pen] Allergies Allergy/AdvReac Type Severity Reaction Status Date / Time No Known Allergies Allergy Verified 12/26/23 09:45 Physical Exam Vitals: Vital Signs Temp Pulse Pulse Resp BP Pulse Ox 12/26/23 12:42 98.4 F 115 H 18 123/74 97 12/26/23 12:01 98.3 F 121 H 20 109/66 100 12/26/23 11:14 122 H 20 131/88 99 12/26/23 10:01 97.7 F 131 H 18 120/83 100 12/26/23 09:01 116 H 12/26/23 09:00 118 H 20 132/94 100 12/26/23 08:10 118 H 22 136/94 100 12/26/23 07:35 97.9 F 126 H 20 111/72 98 12/26/23 05:30 121 H 20 127/86 12/26/23 04:44 117 H 22 107/64 99 12/26/23 04:00 118 H 12/26/23 03:10 121 H 20 128/89 97 12/26/23 02:31 126 H 18 103/61 99 12/26/23 01:02 120 H 16 109/68 99 12/26/23 00:30 117 H 20 96/52 12/26/23 00:00 125 H 20 92/52 99 12/25/23 23:25 129 H 20 94/50 99 12/25/23 23:00 131 H 18 96/42 99 12/25/23 22:25 97.4 F L 12/25/23 22:06 131 H 18 76/38 96 Intake and Output 12/25/23 12/26/23 12/26/23 22:59 06:59 14:59 Intake Total 77.898 Output Total 2200 Balance -2200 77.898 Intake: Intake, IV Titration 77.898 Amount Insulin Regular 100 unit 77.898 In Sodium Chloride 0.9% 100 ml @ 0.1 UNITS/KG/HR 7.33 mls/hr IV .[id number] [facility] Rx#:[id number] Output: Urine 2200 Other: Weight 72.575 kg GENERAL EXAM: 27-year-old white male, lethargic, but arousable. In no distress HEAD: Normocephalic and atraumatic EYES: Normal reaction of pupils, equal size. NOSE: Clear with pink turbinates. THROAT: No erythema or exudates. NECK: No masses, no JVD. CHEST: No chest wall deformity. LUNGS: Equal air entry with no crackles, wheeze, rhonchi or dullness. On room air. CVS: S1 and S2 normal without murmur, regular rhythm. No other extra heart sounds ABDOMEN: No hepatosplenomegaly, active bowel sounds, no guarding or rigidity. SKIN: No rashes CENTRAL NERVOUS SYSTEM: Lethargic, arousable, no gross focal neurologic deficit EXTREMITIES: There is no peripheral edema, clubbing, or cyanosis. Peripheral pulses are intact. Results - Laboratory Findings CBC and BMP: 12/26/23 11:20 12/26/23 11:20 Abnormal lab findings: Abnormal Labs 12/25/23 12/25/23 12/25/23 22:23 22:23 22:23 WBC 18.7 H RBC 3.66 L Hgb Hct 35.8 L MCH 35.5 H RDW 16.3 H Plt Count Neutrophils # 16.3 H Monocytes # VBG pH VBG pCO2 VBG HCO3 Sodium Potassium 6.7 H* Chloride 96 L Carbon Dioxide <5 L* BUN 34 H Creatinine 1.43 H Glucose 862 H* POC Glucose (mg/dL) Plasma Lactic Acid Len 3.6 H* Phosphorus Alkaline Phosphatase 161 H 12/25/23 12/25/23 12/26/23 22:55 23:57 00:04 WBC RBC Hgb Hct MCH RDW Plt Count Neutrophils # Monocytes # VBG pH 7.10 L* VBG pCO2 22 L VBG HCO3 7 L* Sodium Potassium Chloride Carbon Dioxide BUN Creatinine Glucose POC Glucose (mg/dL) >600 H* 564 H* Plasma Lactic Acid Len Phosphorus Alkaline Phosphatase 12/26/23 12/26/23 12/26/23 00:56 01:01 02:20 WBC RBC Hgb Hct MCH RDW Plt Count Neutrophils # Monocytes # VBG pH VBG pCO2 VBG HCO3 Sodium Potassium 5.3 H Chloride 110 H Carbon Dioxide <5 L* BUN 34 H Creatinine 1.26 H Glucose 472 H POC Glucose (mg/dL) 459 H Plasma Lactic Acid Len 2.1 H* Phosphorus 6.2 H Alkaline Phosphatase 12/26/23 12/26/23 12/26/23 02:24 03:06 04:05 WBC RBC Hgb Hct MCH RDW Plt Count Neutrophils # Monocytes # VBG pH VBG pCO2 VBG HCO3 Sodium Potassium Chloride Carbon Dioxide BUN Creatinine Glucose POC Glucose (mg/dL) 314 H 240 H 198 H Plasma Lactic Acid Len Phosphorus Alkaline Phosphatase 12/26/23 12/26/23 12/26/23 05:33 05:36 06:23 WBC RBC Hgb Hct MCH RDW Plt Count Neutrophils # Monocytes # VBG pH VBG pCO2 VBG HCO3 Sodium 147 H Potassium 5.3 H Chloride 117 H Carbon Dioxide 14 L BUN 34 H Creatinine Glucose 170 H POC Glucose (mg/dL) 182 H 151 H Plasma Lactic Acid Len Phosphorus Alkaline Phosphatase 12/26/23 12/26/23 12/26/23 07:30 08:58 10:01 WBC RBC Hgb Hct MCH RDW Plt Count Neutrophils # Monocytes # VBG pH VBG pCO2 VBG HCO3 Sodium Potassium Chloride Carbon Dioxide BUN Creatinine Glucose POC Glucose (mg/dL) 139 H 158 H 155 H Plasma Lactic Acid Len Phosphorus Alkaline Phosphatase 12/26/23 12/26/23 12/26/23 11:07 11:20 11:20 WBC 24.4 H RBC 4.01 L Hgb 11.5 L Hct 35.0 L MCH RDW 17.4 H Plt Count 468 H Neutrophils # 19.8 H Monocytes # 1.3 H VBG pH VBG pCO2 VBG HCO3 Sodium Potassium Chloride 116 H Carbon Dioxide 16 L BUN 29 H Creatinine Glucose 153 H POC Glucose (mg/dL) 136 H Plasma Lactic Acid Len Phosphorus Alkaline Phosphatase 12/26/23 12/26/23 12:00 12:56 WBC RBC Hgb Hct MCH RDW Plt Count Neutrophils # Monocytes # VBG pH VBG pCO2 VBG HCO3 Sodium Potassium Chloride Carbon Dioxide BUN Creatinine Glucose POC Glucose (mg/dL) 171 H 203 H Plasma Lactic Acid Len Phosphorus Alkaline Phosphatase - Diagnostic Findings Chest x-ray: image reviewed (No evidence of active disease noted on chest x-ray) Assessment and Plan Assessment: Impression: Acute diabetic ketoacidosis, likely secondary to medication noncompliance. Patient has had numerous episodes of DKA Severe anion gap metabolic acidosis, secondary to above Severe dehydration Type 1 diabetes mellitus, with poor medication compliance. Acute leukocytosis, likely reactive to DKA Diabetic neuropathy History of major depression Chronic marijuana use Chronic ongoing nicotine dependence Recommendation: Will admit the patient to the ICU Continue DKA protocol Continue to monitor blood sugars and electrolytes and address accordingly Patient could be downgraded once DKA is resolved. And at that point he will be placed on subcu insulin with sliding scale coverage, and Levemir insulin. Will continue to Time with Patient: Greater than 30
[2023-12-26 14:09] LABS: Glucose,Whole Blood 250 mg/dL (70-110)
[2023-12-26 15:05] LABS: Glucose,Whole Blood 232 mg/dL (70-110)
--- NOTE | 2023-12-26 16:01 | P.HPIM ---
History of Present Illness H&P Date: 12/26/23 Chief Complaint: Nausea/vomiting/hyperglycemia 28-year-old white male, history of type 1 diabetes, and recurrent frequent episodes of diabetic ketoacidosis requiring hospital admissions mostly because of noncompliance. Patient presented to the ER yesterday with vomiting nausea, weakness, and he was found to be in DKA again. In the ED blood sugar was as high as 862 lactic acid 3.6, bicarb was extremely low, anion gap was extremely high, over 30, patient had positive ketones hence the patient was placed on the DKA protocol and is recommended admission to ICU Blood work completed in ED reveals a WBC of 24.4, hemoglobin of 11.5 and platelet count of 468, sodium 145, potassium 4.6, BUNs/creatinine of 29/0.72, CO2 of 16 and anion gap of 13 Review of Systems ROS Other: All systems not noted in ROS Statement are negative. Limitations: ROS unobtainable due to patients medical condition Cardiovascular: Denies: chest pain Gastrointestinal: Reports: abdominal pain, vomiting Musculoskeletal: Denies: back pain Neurological: Denies: headache Past Medical History Past Medical History: Asthma, Diabetes Mellitus, Neurologic Disorder, Skin Disorder Additional Past Medical History / Comment(s): IDDM type I, neuropathy bilateral feet, DKA, eczema. History of Any Multi-Drug Resistant Organisms: None Reported Past Surgical History: Adenoidectomy Additional Past Surgical History / Comment(s): gastritis Past Anesthesia/Blood Transfusion Reactions: No Reported Reaction Past Psychological History: Anxiety, Depression Additional Psychological History / Comment(s): Pt has had multiple psychiatric admissions for depression/suicide attempts. Smoking Status: Former smoker Past Alcohol Use History: None Reported Additional Past Alcohol Use History / Comment(s): Pt started smoking cigarettes Pt started occasional vaping in 2009. patient states he hasnt had alcohol in one year. Past Drug Use History: None Reported Additional Drug Use History / Comment(s): almost daily - Past Family History Mother Family Medical History: CVA/TIA Additional Family Medical History / Comment(s): TIA Father Family Medical History: Hyperlipidemia, Hypertension Additional Family Medical History / Comment(s): . Medications and Allergies Home Medications Medication Instructions Recorded Confirmed Type Ergocalciferol [Vitamin D2 (1250 1,250 mcg PO Q30D 04/29/23 12/26/23 History Mcg = 44545 Iu)] Famotidine [Pepcid] 20 mg PO BID 04/29/23 12/26/23 History Gabapentin 600 mg PO TID 04/29/23 12/26/23 History Mirtazapine 7.5 mg PO HS 04/29/23 12/26/23 History Insulin Lispro 7 units SQ AC-TID 09/17/23 12/26/23 History Atorvastatin [Lipitor] 20 mg PO HS #30 tab 09/26/23 12/26/23 Rx Ferrous Sulfate [Iron (65 MG 325 mg PO DAILY 10/09/23 12/26/23 History Elemental)] Omeprazole 20 mg PO BID 10/30/23 12/26/23 History Metoclopramide [Reglan] 10 mg PO TID PRN #15 tab 11/01/23 12/26/23 Rx Losartan [Cozaar] 100 mg PO DAILY #30 tab 11/09/23 12/26/23 Rx Ibuprofen [Motrin] 600 mg PO Q8HR PRN #30 tab 11/18/23 12/26/23 Rx Acetaminophen Tab [Tylenol] 500 - 1,000 mg PO Q6H PRN 12/19/23 12/26/23 History Insulin Glargine,Hum.rec.anlog 30 units SQ DAILY@0700 12/26/23 12/26/23 History [Lantus Solostar Pen] Allergies Allergy/AdvReac Type Severity Reaction Status Date / Time No Known Allergies Allergy Verified 12/26/23 09:45 Physical Exam Vitals: Vital Signs Temp Pulse Pulse Resp BP Pulse Ox 12/26/23 11:14 122 H 20 131/88 99 12/26/23 10:01 97.7 F 131 H 18 120/83 100 12/26/23 09:01 116 H 12/26/23 09:00 118 H 20 132/94 100 12/26/23 08:10 118 H 22 136/94 100 12/26/23 07:35 97.9 F 126 H 20 111/72 98 12/26/23 05:30 121 H 20 127/86 12/26/23 04:44 117 H 22 107/64 99 12/26/23 04:00 118 H 12/26/23 03:10 121 H 20 128/89 97 12/26/23 02:31 126 H 18 103/61 99 12/26/23 01:02 120 H 16 109/68 99 12/26/23 00:30 117 H 20 96/52 12/26/23 00:00 125 H 20 92/52 99 12/25/23 23:25 129 H 20 94/50 99 12/25/23 23:00 131 H 18 96/42 99 12/25/23 22:25 97.4 F L 12/25/23 22:06 131 H 18 76/38 96 Intake and Output 12/25/23 12/26/23 12/26/23 22:59 06:59 14:59 Intake Total 76.251 Output Total 2200 Balance -2200 76.251 Intake: Intake, IV Titration 76.251 Amount Insulin Regular 100 unit 76.251 In Sodium Chloride 0.9% 100 ml @ 0.1 UNITS/KG/HR 7.33 mls/hr IV .[id number] [facility] Rx#:[id number] Output: Urine 2200 Other: Weight 72.575 kg Head exam: Present: atraumatic, normocephalic Eye exam: Present: normal appearance. Absent: scleral icterus, conjunctival in jection ENT exam: Present: mucous membranes dry Neck exam: Present: normal inspection Respiratory exam: Present: normal lung sounds bilaterally. Absent: respiratory distress, wheezes, rales, rhonchi, stridor, accessory muscle use Cardiovascular Exam: Present: regular rate, normal rhythm, normal heart sounds. Absent: systolic murmur, diastolic murmur, rubs, gallop GI/Abdominal exam: Present: soft. Absent: distended, tenderness, guarding, rebound, rigid, mass Extremities exam: Present: normal inspection, normal capillary refill. Absent: pedal edema, calf tenderness Back exam: Present: normal inspection. Absent: CVA tenderness (R), CVA tenderness (L) Neurological exam: Present: altered (Patient is somnolent but arousable.) Skin exam: Present: warm, dry, intact, normal color. Absent: rash Results CBC & Chem 7: 12/26/23 11:20 12/26/23 11:20 Labs: Abnormal Lab Results - Last 24 Hours (Table) 12/25/23 12/25/23 12/25/23 Range/Units 22:23 22:23 22:23 WBC 18.7 H (3.8-10.6) k/uL RBC 3.66 L (4.30-5.90) m/uL Hgb (13.0-17.5) gm/dL Hct 35.8 L (39.0-53.0) % MCH 35.5 H (25.0-35.0) pg RDW 16.3 H (11.5-15.5) % Plt Count (150-450) k/uL Neutrophils # 16.3 H (1.3-7.7) k/uL Monocytes # (0-1.0) k/uL VBG pH (7.31-7.41) VBG pCO2 (37-51) mmHg VBG HCO3 (24-28) mmol/L Sodium (137-145) mmol/L Potassium 6.7 H* (3.5-5.1) mmol/L Chloride 96 L (98-107) mmol/L Carbon Dioxide <5 L* (22-30) mmol/L BUN 34 H (9-20) mg/dL Creatinine 1.43 H (0.66-1.25) mg/dL Glucose 862 H* (74-99) mg/dL POC Glucose (mg/dL) (70-110) mg/dL Plasma Lactic Acid Len 3.6 H* (0.7-2.0) mmol/L Phosphorus (2.5-4.5) mg/dL Alkaline Phosphatase 161 H (38-126) U/L 12/25/23 12/25/23 12/26/23 Range/Units 22:55 23:57 00:04 WBC (3.8-10.6) k/uL RBC (4.30-5.90) m/uL Hgb (13.0-17.5) gm/dL Hct (39.0-53.0) % MCH (25.0-35.0) pg RDW (11.5-15.5) % Plt Count (150-450) k/uL Neutrophils # (1.3-7.7) k/uL Monocytes # (0-1.0) k/uL VBG pH 7.10 L* (7.31-7.41) VBG pCO2 22 L (37-51) mmHg VBG HCO3 7 L* (24-28) mmol/L Sodium (137-145) mmol/L Potassium (3.5-5.1) mmol/L Chloride (98-107) mmol/L Carbon Dioxide (22-30) mmol/L BUN (9-20) mg/dL Creatinine (0.66-1.25) mg/dL Glucose (74-99) mg/dL POC Glucose (mg/dL) >600 H* 564 H* (70-110) mg/dL Plasma Lactic Acid Lne (0.7-2.0) mmol/L Phosphorus (2.5-4.5) mg/dL Alkaline Phosphatase (38-126) U/L 12/26/23 12/26/23 12/26/23 Range/Units 00:56 01:01 02:20 WBC (3.8-10.6) k/uL RBC (4.30-5.90) m/uL Hgb (13.0-17.5) gm/dL Hct (39.0-53.0) % MCH (25.0-35.0) pg RDW (11.5-15.5) % Plt Count (150-450) k/uL Neutrophils # (1.3-7.7) k/uL Monocytes # (0-1.0) k/uL VBG pH (7.31-7.41) VBG pCO2 (37-51) mmHg VBG HCO3 (24-28) mmol/L Sodium (137-145) mmol/L Potassium 5.3 H (3.5-5.1) mmol/L Chloride 110 H (98-107) mmol/L Carbon Dioxide <5 L* (22-30) mmol/L BUN 34 H (9-20) mg/dL Creatinine 1.26 H (0.66-1.25) mg/dL Glucose 472 H (74-99) mg/dL POC Glucose (mg/dL) 459 H (70-110) mg/dL Plasma Lactic Acid Len 2.1 H* (0.7-2.0) mmol/L Phosphorus 6.2 H (2.5-4.5) mg/dL Alkaline Phosphatase (38-126) U/L 12/26/23 12/26/23 12/26/23 Range/Units 02:24 03:06 04:05 WBC (3.8-10.6) k/uL RBC (4.30-5.90) m/uL Hgb (13.0-17.5) gm/dL Hct (39.0-53.0) % MCH (25.0-35.0) pg RDW (11.5-15.5) % Plt Count (150-450) k/uL Neutrophils # (1.3-7.7) k/uL Monocytes # (0-1.0) k/uL VBG pH (7.31-7.41) VBG pCO2 (37-51) mmHg VBG HCO3 (24-28) mmol/L Sodium (137-145) mmol/L Potassium (3.5-5.1) mmol/L Chloride (98-107) mmol/L Carbon Dioxide (22-30) mmol/L BUN (9-20) mg/dL Creatinine (0.66-1.25) mg/dL Glucose (74-99) mg/dL POC Glucose (mg/dL) 314 H 240 H 198 H (70-110) mg/dL Plasma Lactic Acid Len (0.7-2.0) mmol/L Phosphorus (2.5-4.5) mg/dL Alkaline Phosphatase (38-126) U/L 12/26/23 12/26/23 12/26/23 Range/Units 05:33 05:36 06:23 WBC (3.8-10.6) k/uL RBC (4.30-5.90) m/uL Hgb (13.0-17.5) gm/dL Hct (39.0-53.0) % MCH (25.0-35.0) pg RDW (11.5-15.5) % Plt Count (150-450) k/uL Neutrophils # (1.3-7.7) k/uL Monocytes # (0-1.0) k/uL VBG pH (7.31-7.41) VBG pCO2 (37-51) mmHg VBG HCO3 (24-28) mmol/L Sodium 147 H (137-145) mmol/L Potassium 5.3 H (3.5-5.1) mmol/L Chloride 117 H (98-107) mmol/L Carbon Dioxide 14 L (22-30) mmol/L BUN 34 H (9-20) mg/dL Creatinine (0.66-1.25) mg/dL Glucose 170 H (74-99) mg/dL POC Glucose (mg/dL) 182 H 151 H (70-110) mg/dL Plasma Lactic Acid Len (0.7-2.0) mmol/L Phosphorus (2.5-4.5) mg/dL Alkaline Phosphatase (38-126) U/L 12/26/23 12/26/23 12/26/23 Range/Units 07:30 08:58 10:01 WBC (3.8-10.6) k/uL RBC (4.30-5.90) m/uL Hgb (13.0-17.5) gm/dL Hct (39.0-53.0) % MCH (25.0-35.0) pg RDW (11.5-15.5) % Plt Count (150-450) k/uL Neutrophils # (1.3-7.7) k/uL Monocytes # (0-1.0) k/uL VBG pH (7.31-7.41) VBG pCO2 (37-51) mmHg VBG HCO3 (24-28) mmol/L Sodium (137-145) mmol/L Potassium (3.5-5.1) mmol/L Chloride (98-107) mmol/L Carbon Dioxide (22-30) mmol/L BUN (9-20) mg/dL Creatinine (0.66-1.25) mg/dL Glucose (74-99) mg/dL POC Glucose (mg/dL) 139 H 158 H 155 H (70-110) mg/dL Plasma Lactic Acid Len (0.7-2.0) mmol/L Phosphorus (2.5-4.5) mg/dL Alkaline Phosphatase (38-126) U/L 12/26/23 12/26/23 Range/Units 11:07 11:20 WBC 24.4 H (3.8-10.6) k/uL RBC 4.01 L (4.30-5.90) m/uL Hgb 11.5 L (13.0-17.5) gm/dL Hct 35.0 L (39.0-53.0) % MCH (25.0-35.0) pg RDW 17.4 H (11.5-15.5) % Plt Count 468 H (150-450) k/uL Neutrophils # 19.8 H (1.3-7.7) k/uL Monocytes # 1.3 H (0-1.0) k/uL VBG pH (7.31-7.41) VBG pCO2 (37-51) mmHg VBG HCO3 (24-28) mmol/L Sodium (137-145) mmol/L Potassium (3.5-5.1) mmol/L Chloride (98-107) mmol/L Carbon Dioxide (22-30) mmol/L BUN (9-20) mg/dL Creatinine (0.66-1.25) mg/dL Glucose (74-99) mg/dL POC Glucose (mg/dL) 136 H (70-110) mg/dL Plasma Lactic Acid Len (0.7-2.0) mmol/L Phosphorus (2.5-4.5) mg/dL Alkaline Phosphatase (38-126) U/L Assessment and Plan Assessment: 1. Acute diabetic ketoacidosis; likely related to medication noncompliance. Patient has had numerous episodes of DKA -Patient is being admitted to ICU; remains on DKA protocol -Blood glucose and electrolytes to be monitored per protocol with plans to repl johanna as needed -Patient remains on IV fluids in form of normal saline at a rate of 125 cc an hour -Has been placed on subcu insulin with sliding scale and Levemir 2. Severe anion gap metabolic acidosis, secondary to above; continue with DKA protocol and monitor electrolytes and BMP every 4 hours per protocol and make adjustments in management as needed 3. Severe dehydration secondary to acute diabetic ketoacidosis; patient remains on IV fluids; will monitor strict JENI's, daily weights, renal function electrolytes 4. Acute leukocytosis, likely reactive to DKA; will monitor CBC, CRP and pro calcitonin; will initiate sepsis workup if white blood count continues to trend up 5. Diabetic neuropathy; Neurontin 600 mg 3 times daily; will resume once DKA resolves 6. Hypertension; losartan 100 mg daily 7. Hyperlipidemia; Lipitor 20 mg p.o. nightly 8. Chronic marijuana use/ Chronic ongoing nicotine dependence; educate patient DVT prophylaxis; SCDs CODE STATUS; full code
[2023-12-26 16:04] LABS: Glucose,Whole Blood 232 mg/dL (70-110)
[2023-12-26 16:24] LABS: African American GFR (CKD) >90 (>60 ml/min/1.73 sqM); Anion Gap 11 mmol/L; Blood Urea Nitrogen 28 mg/dL (9-20); Calcium 8.5 mg/dL (8.4-10.2); Carbon Dioxide 18 mmol/L (22-30); Chloride 114 mmol/L (98-107); Glucose 241 mg/dL (74-99); Non-African American GFR(CKD) >90 (>60 ml/min/1.73 sqM); Phosphorus 3.2 mg/dL (2.5-4.5); Potassium 4.3 mmol/L (3.5-5.1); Sodium 143 mmol/L (137-145)
[2023-12-26 17:07] LABS: Glucose,Whole Blood 260 mg/dL (70-110)
[2023-12-26 17:55] LABS: Glucose,Whole Blood 226 mg/dL (70-110)
[2023-12-26 19:06] LABS: Glucose,Whole Blood 191 mg/dL (70-110)
[2023-12-26 19:20] LABS: African American GFR (CKD) >90 (>60 ml/min/1.73 sqM); Anion Gap 8 mmol/L; Blood Urea Nitrogen 25 mg/dL (9-20); Calcium 8.7 mg/dL (8.4-10.2); Carbon Dioxide 20 mmol/L (22-30); Chloride 113 mmol/L (98-107); Glucose 211 mg/dL (74-99); Non-African American GFR(CKD) >90 (>60 ml/min/1.73 sqM); Potassium 4.2 mmol/L (3.5-5.1); Sodium 141 mmol/L (137-145)
[2023-12-26 20:11] LABS: Glucose,Whole Blood 225 mg/dL (70-110)
[2023-12-26] MEDS: INSULIN DETEMIR (LEVEMIR) 100 UNIT/ML SYR SQ STA (21:27)
[2023-12-26] MEDS: SODIUM CHLORIDE 0.9% 1,000 ML IV SCH (22:10)
[2023-12-26 22:21] LABS: Glucose,Whole Blood 214 mg/dL (70-110)
[2023-12-27 02:16] LABS: Glucose,Whole Blood 77 mg/dL (70-110)
[2023-12-27] MEDS: INSULIN ASPART (NovoLOG) 100 UNIT/ML VIAL SQ SCH ×2 (02:16→08:12)
[2023-12-27 04:41] LABS: Glucose,Whole Blood 51 mg/dL (70-110)
[2023-12-27 04:58] LABS: Glucose,Whole Blood 74 mg/dL (70-110)
[2023-12-27 06:42] LABS: Anisocytosis Slight; HGB 10.3 gm/dL (13.0-17.5); Hypochromasia Marked; MCH 28.5 pg (25.0-35.0); MCHC 32.1 g/dL (31.0-37.0); Mean Platelet Volume 6.6; Platelet Count 372 k/uL (150-450); RBC 3.59 m/uL (4.30-5.90); WBC 14.5 k/uL (3.8-10.6)
[2023-12-27 06:54] LABS: African American GFR (CKD) >90 (>60 ml/min/1.73 sqM); Anion Gap 7 mmol/L; Blood Urea Nitrogen 19 mg/dL (9-20); Calcium 8.4 mg/dL (8.4-10.2); Carbon Dioxide 25 mmol/L (22-30); Chloride 107 mmol/L (98-107); Glucose 112 mg/dL (74-99); Non-African American GFR(CKD) >90 (>60 ml/min/1.73 sqM); Potassium 3.8 mmol/L (3.5-5.1); Sodium 139 mmol/L (137-145)
[2023-12-27 07:03] LABS: Glucose,Whole Blood 99 mg/dL (70-110)
[2023-12-27] MEDS: POTASSIUM CHLORIDE ER 20 MEQ TAB.ER PO SCH (07:15)
--- NOTE | 2023-12-27 11:03 | P.PN ---
Subjective Progress Note Date: 12/27/23 Principal diagnosis: Acute DKA This is a 28-year-old white male with history of type 1 diabetes, and recurrent frequent episodes of diabetic ketoacidosis requiring hospital admissions mostly because of noncompliance. Patient presented to the ER yesterday with vomiting nausea, weakness, and he was found to be in DKA again. Blood sugar was as high as 862 lactic acid 3.6, bicarb was extremely low, anion gap was extremely high, over 30, patient had positive ketones hence the patient was placed on the DKA protocol, and we were asked to see the patient for ICU admission. I did see the patient down in the ER, his anion gap is down to 13, bicarb is up to 16 from less than 5, blood sugar is improving nonetheless the patient will still require ICU admission for now. Unless his anion gap completely closes and the patient is back on subcu insulin. And on Accu-Cheks with sliding scale patient is still receiving IV fluids in the form of 0.9 normal saline at 150 cc/h. Patient was seen and examined today on 12/27/2023, did not is better today, his anion gap has closed, patient is back on his insulin dose as taken at home. And he is on Levemir insulin WBC is 14.5 hemoglobin 10.3 bicarb today is 25 and renal profile is normal electrolytes are normal blood sugar is 112 Objective - Vital Signs Vital signs: Vital Signs Temp 97.9 F 12/27/23 08:00 Pulse 77 12/27/23 08:00 Resp 16 12/27/23 08:00 BP 123/83 12/27/23 08:00 Pulse Ox 97 12/27/23 08:00 FiO2 Intake & Output 12/26/23 12/27/23 12/27/23 18:59 06:59 18:59 Intake Total 9043.881 6043.188 360 Output Total 600 325 0 Balance 185.468 0351.188 360 Weight 75.2 kg 76.3 kg Intake: IV 1090 1200 100 D5-0.45% NaCl with KCl 1050 300 20Meq/l 1,000 ml @ 150 mls/hr IV .[id number] [facility] Rx# :[id number] Invasive Line 1 20 Invasive Line 2 20 Sodium Chloride 0.9% 1, 900 100 000 ml @ 100 mls/hr IV . Q10H [facility] Rx#:[id number] Intake, IV Titration 87.139 15.188 Amount Insulin Regular 100 unit 87.139 15.188 In Sodium Chloride 0.9% 100 ml @ 0.1 UNITS/KG/HR 7.33 mls/hr IV .[id number] [facility] Rx#:[id number] Oral 100 1200 260 Output: Urine 550 325 0 Emesis 50 Other: Voiding Method Urinal Urinal Urinal # Bowel Movements 0 - Exam GENERAL EXAM: 27-year-old white male, alert and oriented in no distress HEAD: Normocephalic and atraumatic EYES: Normal reaction of pupils, equal size. NOSE: Clear with pink turbinates. THROAT: No erythema or exudates. NECK: No masses, no JVD. CHEST: No chest wall deformity. LUNGS: Equal air entry with no crackles, wheeze, rhonchi or dullness. On room air. CVS: S1 and S2 normal without murmur, regular rhythm. No other extra heart sounds ABDOMEN: No hepatosplenomegaly, active bowel sounds, no guarding or rigidity. SKIN: No rashes CENTRAL NERVOUS SYSTEM: Alert oriented x 3 no focal deficit EXTREMITIES: There is no peripheral edema, clubbing, or cyanosis. Peripheral pulses are intact. - Labs CBC & Chem 7: 12/27/23 05:51 12/27/23 05:51 Labs: Abnormal Lab Results - Last 24 Hours (Table) 12/26/23 12/26/23 12/26/23 Range/Units 11:07 11:20 11:20 WBC 24.4 H (3.8-10.6) k/uL RBC 4.01 L (4.30-5.90) m/uL Hgb 11.5 L (13.0-17.5) gm/dL Hct 35.0 L (39.0-53.0) % RDW 17.4 H (11.5-15.5) % Plt Count 468 H (150-450) k/uL Neutrophils # 19.8 H (1.3-7.7) k/uL Monocytes # 1.3 H (0-1.0) k/uL Chloride 116 H (98-107) mmol/L Carbon Dioxide 16 L (22-30) mmol/L BUN 29 H (9-20) mg/dL Creatinine (0.66-1.25) mg/dL Glucose 153 H (74-99) mg/dL POC Glucose (mg/dL) 136 H (70-110) mg/dL 12/26/23 12/26/23 12/26/23 Range/Units 12:00 12:56 14:08 WBC (3.8-10.6) k/uL RBC (4.30-5.90) m/uL Hgb (13.0-17.5) gm/dL Hct (39.0-53.0) % RDW (11.5-15.5) % Plt Count (150-450) k/uL Neutrophils # (1.3-7.7) k/uL Monocytes # (0-1.0) k/uL Chloride (98-107) mmol/L Carbon Dioxide (22-30) mmol/L BUN (9-20) mg/dL Creatinine (0.66-1.25) mg/dL Glucose (74-99) mg/dL POC Glucose (mg/dL) 171 H 203 H 250 H (70-110) mg/dL 12/26/23 12/26/23 12/26/23 Range/Units 15:03 15:14 16:03 WBC (3.8-10.6) k/uL RBC (4.30-5.90) m/uL Hgb (13.0-17.5) gm/dL Hct (39.0-53.0) % RDW (11.5-15.5) % Plt Count (150-450) k/uL Neutrophils # (1.3-7.7) k/uL Monocytes # (0-1.0) k/uL Chloride 114 H (98-107) mmol/L Carbon Dioxide 18 L (22-30) mmol/L BUN 28 H (9-20) mg/dL Creatinine 0.63 L (0.66-1.25) mg/dL Glucose 241 H (74-99) mg/dL POC Glucose (mg/dL) 232 H 232 H (70-110) mg/dL 12/26/23 12/26/23 12/26/23 Range/Units 17:05 17:53 18:43 WBC (3.8-10.6) k/uL RBC (4.30-5.90) m/uL Hgb (13.0-17.5) gm/dL Hct (39.0-53.0) % RDW (11.5-15.5) % Plt Count (150-450) k/uL Neutrophils # (1.3-7.7) k/uL Monocytes # (0-1.0) k/uL Chloride 113 H (98-107) mmol/L Carbon Dioxide 20 L (22-30) mmol/L BUN 25 H (9-20) mg/dL Creatinine 0.63 L (0.66-1.25) mg/dL Glucose 211 H (74-99) mg/dL POC Glucose (mg/dL) 260 H 226 H (70-110) mg/dL 12/26/23 12/26/23 12/26/23 Range/Units 19:05 20:10 22:19 WBC (3.8-10.6) k/uL RBC (4.30-5.90) m/uL Hgb (13.0-17.5) gm/dL Hct (39.0-53.0) % RDW (11.5-15.5) % Plt Count (150-450) k/uL Neutrophils # (1.3-7.7) k/uL Monocytes # (0-1.0) k/uL Chloride (98-107) mmol/L Carbon Dioxide (22-30) mmol/L BUN (9-20) mg/dL Creatinine (0.66-1.25) mg/dL Glucose (74-99) mg/dL POC Glucose (mg/dL) 191 H 225 H 214 H (70-110) mg/dL 12/27/23 12/27/23 12/27/23 Range/Units 04:38 05:51 05:51 WBC 14.5 H (3.8-10.6) k/uL RBC 3.59 L (4.30-5.90) m/uL Hgb 10.3 L (13.0-17.5) gm/dL Hct 32.0 L (39.0-53.0) % RDW 17.0 H (11.5-15.5) % Plt Count (150-450) k/uL Neutrophils # (1.3-7.7) k/uL Monocytes # (0-1.0) k/uL Chloride (98-107) mmol/L Carbon Dioxide (22-30) mmol/L BUN (9-20) mg/dL Creatinine 0.65 L (0.66-1.25) mg/dL Glucose 112 H (74-99) mg/dL POC Glucose (mg/dL) 51 L (70-110) mg/dL Assessment and Plan Assessment: Impression: Acute diabetic ketoacidosis, likely secondary to medication noncompliance. Resolved Severe anion gap metabolic acidosis, secondary to above, resolved Severe dehydration, resolved Type 1 diabetes mellitus, with poor medication compliance. Acute leukocytosis, likely reactive to DKA Diabetic neuropathy History of major depression Chronic marijuana use Chronic ongoing nicotine dependence Recommendation: Transfer patient to medical surgical floor Continue subcu insulin/NovoLog insulin and continue Levemir insulin Possible discharge planning in the next 24 hours Will continue to follow Time with Patient: Less than 30
[2023-12-27 11:41] LABS: Glucose,Whole Blood 171 mg/dL (70-110)
[2023-12-27 13:49] VITALS: BMI 21.0
--- NOTE | 2023-12-27 15:38 | P.PN ---
Subjective Progress Note Date: 12/27/23 28-year-old white male, history of type 1 diabetes, and recurrent frequent episodes of diabetic ketoacidosis requiring hospital admissions mostly because of noncompliance. Patient presented to the ER yesterday with vomiting nausea, weakness, and he was found to be in DKA again. In the ED blood sugar was as high as 862 lactic acid 3.6, bicarb was extremely low, anion gap was extremely high, over 30, patient had positive ketones hence the patient was placed on the DKA protocol and is recommended admission to ICU Blood work completed in ED reveals a WBC of 24.4, hemoglobin of 11.5 and platelet count of 468, sodium 145, potassium 4.6, BUNs/creatinine of 29/0.72, CO2 of 16 and anion gap of 13 Objective - Vital Signs Vital signs: Vital Signs Temp 97.9 F 12/27/23 08:00 Pulse 77 12/27/23 08:00 Resp 16 12/27/23 08:00 BP 123/83 12/27/23 08:00 Pulse Ox 97 12/27/23 08:00 FiO2 Intake & Output 12/26/23 12/27/23 12/27/23 18:59 06:59 18:59 Intake Total 5221.982 6277.188 360 Output Total 600 325 0 Balance 812.183 0382.188 360 Weight 75.2 kg 76.3 kg Intake: IV 1090 1200 100 D5-0.45% NaCl with KCl 1050 300 20Meq/l 1,000 ml @ 150 mls/hr IV .Q6H40M [facility] Rx# :[id number] Invasive Line 1 20 Invasive Line 2 20 Sodium Chloride 0.9% 1, 900 100 000 ml @ 100 mls/hr IV . Q10H [facility] Rx#:[id number] Intake, IV Titration 87.139 15.188 Amount Insulin Regular 100 unit 87.139 15.188 In Sodium Chloride 0.9% 100 ml @ 0.1 UNITS/KG/HR 7.33 mls/hr IV .[id number] [facility] Rx#:[id number] Oral 100 1200 260 Output: Urine 550 325 0 Emesis 50 Other: Voiding Method Urinal Urinal Urinal # Bowel Movements 0 - Exam Head exam: Present: atraumatic, normocephalic Eye exam: Present: normal appearance. Absent: scleral icterus, conjunctival injection ENT exam: Present: mucous membranes dry Neck exam: Present: normal inspection Respiratory exam: Present: normal lung sounds bilaterally. Absent: respiratory distress, wheezes, rales, rhonchi, stridor, accessory muscle use Cardiovascular Exam: Present: regular rate, normal rhythm, normal heart sounds. Absent: systolic murmur, diastolic murmur, rubs, gallop GI/Abdominal exam: Present: soft. Absent: distended, tenderness, guarding, rebound, rigid, mass Extremities exam: Present: normal inspection, normal capillary refill. Absent: pedal edema, calf tenderness Back exam: Present: normal inspection. Absent: CVA tenderness (R), CVA tenderness (L) Neurological exam: Present: altered (Patient is somnolent but arousable.) Skin exam: Present: warm, dry, intact, normal color. Absent: rash - Labs CBC & Chem 7: 12/27/23 05:51 12/27/23 05:51 Labs: Abnormal Lab Results - Last 24 Hours (Table) 12/26/23 12/26/23 12/26/23 Range/Units 11:07 11:20 11:20 WBC 24.4 H (3.8-10.6) k/uL RBC 4.01 L (4.30-5.90) m/uL Hgb 11.5 L (13.0-17.5) gm/dL Hct 35.0 L (39.0-53.0) % RDW 17.4 H (11.5-15.5) % Plt Count 468 H (150-450) k/uL Neutrophils # 19.8 H (1.3-7.7) k/uL Monocytes # 1.3 H (0-1.0) k/uL Chloride 116 H (98-107) mmol/L Carbon Dioxide 16 L (22-30) mmol/L BUN 29 H (9-20) mg/dL Creatinine (0.66-1.25) mg/dL Glucose 153 H (74-99) mg/dL POC Glucose (mg/dL) 136 H (70-110) mg/dL 12/26/23 12/26/23 12/26/23 Range/Units 12:00 12:56 14:08 WBC (3.8-10.6) k/uL RBC (4.30-5.90) m/uL Hgb (13.0-17.5) gm/dL Hct (39.0-53.0) % RDW (11.5-15.5) % Plt Count (150-450) k/uL Neutrophils # (1.3-7.7) k/uL Monocytes # (0-1.0) k/uL Chloride (98-107) mmol/L Carbon Dioxide (22-30) mmol/L BUN (9-20) mg/dL Creatinine (0.66-1.25) mg/dL Glucose (74-99) mg/dL POC Glucose (mg/dL) 171 H 203 H 250 H (70-110) mg/dL 12/26/23 12/26/23 12/26/23 Range/Units 15:03 15:14 16:03 WBC (3.8-10.6) k/uL RBC (4.30-5.90) m/uL Hgb (13.0-17.5) gm/dL Hct (39.0-53.0) % RDW (11.5-15.5) % Plt Count (150-450) k/uL Neutrophils # (1.3-7.7) k/uL Monocytes # (0-1.0) k/uL Chloride 114 H (98-107) mmol/L Carbon Dioxide 18 L (22-30) mmol/L BUN 28 H (9-20) mg/dL Creatinine 0.63 L (0.66-1.25) mg/dL Glucose 241 H (74-99) mg/dL POC Glucose (mg/dL) 232 H 232 H (70-110) mg/dL 12/26/23 12/26/23 12/26/23 Range/Units 17:05 17:53 18:43 WBC (3.8-10.6) k/uL RBC (4.30-5.90) m/uL Hgb (13.0-17.5) gm/dL Hct (39.0-53.0) % RDW (11.5-15.5) % Plt Count (150-450) k/uL Neutrophils # (1.3-7.7) k/uL Monocytes # (0-1.0) k/uL Chloride 113 H (98-107) mmol/L Carbon Dioxide 20 L (22-30) mmol/L BUN 25 H (9-20) mg/dL Creatinine 0.63 L (0.66-1.25) mg/dL Glucose 211 H (74-99) mg/dL POC Glucose (mg/dL) 260 H 226 H (70-110) mg/dL 12/26/23 12/26/23 12/26/23 Range/Units 19:05 20:10 22:19 WBC (3.8-10.6) k/uL RBC (4.30-5.90) m/uL Hgb (13.0-17.5) gm/dL Hct (39.0-53.0) % RDW (11.5-15.5) % Plt Count (150-450) k/uL Neutrophils # (1.3-7.7) k/uL Monocytes # (0-1.0) k/uL Chloride (98-107) mmol/L Carbon Dioxide (22-30) mmol/L BUN (9-20) mg/dL Creatinine (0.66-1.25) mg/dL Glucose (74-99) mg/dL POC Glucose (mg/dL) 191 H 225 H 214 H (70-110) mg/dL 12/27/23 12/27/23 12/27/23 Range/Units 04:38 05:51 05:51 WBC 14.5 H (3.8-10.6) k/uL RBC 3.59 L (4.30-5.90) m/uL Hgb 10.3 L (13.0-17.5) gm/dL Hct 32.0 L (39.0-53.0) % RDW 17.0 H (11.5-15.5) % Plt Count (150-450) k/uL Neutrophils # (1.3-7.7) k/uL Monocytes # (0-1.0) k/uL Chloride (98-107) mmol/L Carbon Dioxide (22-30) mmol/L BUN (9-20) mg/dL Creatinine 0.65 L (0.66-1.25) mg/dL Glucose 112 H (74-99) mg/dL POC Glucose (mg/dL) 51 L (70-110) mg/dL Assessment and Plan Assessment: 1. Acute diabetic ketoacidosis; likely related to medication noncompliance. P erica has had numerous episodes of DKA -Patient is being admitted to ICU; remains on DKA protocol -Blood glucose and electrolytes to be monitored per protocol with plans to replace as needed -Patient remains on IV fluids in form of normal saline at a rate of 125 cc an hour -Has been placed on subcu insulin with sliding scale and Levemir 2. Severe anion gap metabolic acidosis, secondary to above; continue with DKA protocol and monitor electrolytes and BMP every 4 hours per protocol and make ad justments in management as needed 3. Severe dehydration secondary to acute diabetic ketoacidosis; patient remains on IV fluids; will monitor strict JENI's, daily weights, renal function electrolytes 4. Acute leukocytosis, likely reactive to DKA; will monitor CBC, CRP and procalcitonin; will initiate sepsis workup if white blood count continues to trend up 5. Diabetic neuropathy; Neurontin 600 mg 3 times daily; will resume once DKA resolves 6. Hypertension; losartan 100 mg daily 7. Hyperlipidemia; Lipitor 20 mg p.o. nightly 8. Chronic marijuana use/ Chronic ongoing nicotine dependence; educate patient DVT prophylaxis; SCDs CODE STATUS; full code
[2023-12-27 17:08] LABS: Glucose,Whole Blood 184 mg/dL (70-110)
[2023-12-27 20:33] LABS: Glucose,Whole Blood 301 mg/dL (70-110)
[2023-12-27] MEDS: INSULIN DETEMIR (LEVEMIR) 100 UNIT/ML SYR SQ SCH (20:47)
[2023-12-28 02:24] LABS: Glucose,Whole Blood 143 mg/dL (70-110)
[2023-12-28 02:35] VITALS: RESP 18
[2023-12-28 05:57] LABS: Glucose,Whole Blood 120 mg/dL (70-110)
[2023-12-28 07:55] VITALS: BP 119/77; PULSE 77; TEMP 97.7
--- NOTE | 2023-12-28 09:28 | P.PN ---
Subjective Progress Note Date: 12/28/23 This is a 28-year-old white male with history of type 1 diabetes, and recurrent frequent episodes of diabetic ketoacidosis requiring hospital admissions mostly because of noncompliance. Patient presented to the ER yesterday with vomiting nausea, weakness, and he was found to be in DKA again. Blood sugar was as high as 862 lactic acid 3.6, bicarb was extremely low, anion gap was extremely high, over 30, patient had positive ketones hence the patient was placed on the DKA protocol, and we were asked to see the patient for ICU admission. I did see the patient down in the ER, his anion gap is down to 13, bicarb is up to 16 from less than 5, blood sugar is improving nonetheless the patient will still require ICU admission for now. Unless his anion gap completely closes and the patient is back on subcu insulin. And on Accu-Cheks with sliding scale patient is still receiving IV fluids in the form of 0.9 normal saline at 150 cc/h. Patient was seen and examined today on 12/27/2023, did not is better today, his anion gap has closed, patient is back on his insulin dose as taken at home. And he is on Levemir insulin WBC is 14.5 hemoglobin 10.3 bicarb today is 25 and renal profile is normal electrolytes are normal blood sugar is 112 The patient is seen today December 28, 2023 in follow-up on the regular medical floor. He is currently resting comfortably in bed. Awake and alert in no acute distress. He is maintaining good O2 saturations in the 90s on room air. He is afebrile. Hemodynamically stable. Glucose 120. He is continued on Levemir 30 units nightly and NovoLog sliding scale. He is still on normal saline at 100 MLS per hour. Objective - Vital Signs Vital signs: Vital Signs Temp 97.7 F 12/28/23 07:05 Pulse 77 12/28/23 07:05 Resp 18 12/28/23 07:05 BP 119/77 12/28/23 07:05 Pulse Ox 97 12/28/23 07:05 FiO2 Intake & Output 12/27/23 12/28/23 12/28/23 18:59 06:59 18:59 Intake Total 1700 Output Total 1900 Balance -200 Weight 76.3 kg Intake: IV 1200 Sodium Chloride 0.9% 1, 1200 000 ml @ 100 mls/hr IV . Q10H [facility] Rx#:[id number] Oral 500 Output: Urine 1900 Other: Voiding Method Urinal Toilet # Voids 2 - Exam GENERAL EXAM: Alert, pleasant, thin 28-year-old male, on room air, comfortable in no apparent distress. HEAD: Normocephalic. EYES: Normal reaction of pupils, equal size. NOSE: Clear with pink turbinates. THROAT: No erythema or exudates. NECK: No masses, no JVD. CHEST: No chest wall deformity. LUNGS: Equal air entry with no crackles, wheeze, rhonchi or dullness. CVS: S1 and S2 normal with no audible murmur, regular rhythm. ABDOMEN: No hepatosplenomegaly, normal bowel sounds, no guarding or rigidity. SPINE: No scoliosis or deformity SKIN: No rashes CENTRAL NERVOUS SYSTEM: No focal deficits, tone is normal in all 4 extremities. EXTREMITIES: There is no peripheral edema. No clubbing, no cyanosis. Peripheral pulses are intact. - Labs CBC & Chem 7: 12/27/23 05:51 12/27/23 05:51 Labs: Abnormal Lab Results - Last 24 Hours (Table) 12/27/23 12/27/23 12/27/23 Range/Units 11:40 17:06 20:31 POC Glucose (mg/dL) 171 H 184 H 301 H (70-110) mg/dL 12/28/23 12/28/23 Range/Units 02:21 05:55 POC Glucose (mg/dL) 143 H 120 H (70-110) mg/dL Assessment and Plan Assessment: Acute diabetic ketoacidosis, recovered Severe anion gap metabolic acidosis secondary to above, recovered Severe dehydration, recovered Type 1 diabetes mellitus with poor medication compliance Acute leukocytosis likely reactive to DKA Diabetic neuropathy History of major depression Chronic marijuana use Chronic and ongoing tobacco dependence Plan: The patient was seen and evaluated Labs and medications reviewed Stable and on room air On Levemir 30 units subcu nightly Continued on a NovoLog sliding scale Cleared for discharge This patient was seen independently by the pulmonary/ICU nurse practitioner I have personally seen and examined the patient, performed the documentation and the assessment and plan as written. Number of minutes spent on the visit: 24.
[2023-12-28 11:21] LABS: Glucose,Whole Blood 184 mg/dL (70-110)
--- NOTE | 2024-01-20 10:14 | HP ---
HISTORY AND PHYSICAL CHIEF COMPLAINT: Diabetic ketoacidosis. HISTORY OF PRESENT ILLNESS: Another admission for this 28-year-old male who is coming in, was here for days now with diabetic ketoacidosis. He will not take medications. This time he is acutely ill with a pulse of 150 and a pH goal of 7. He is acidotic. He is vomiting. REVIEW OF SYSTEMS: Cannot be obtained. PAST MEDICAL HISTORY, FAMILY HISTORY, SOCIAL HISTORY: Presumed unchanged and cannot be obtained. PHYSICAL EXAMINATION: VITAL SIGNS: Blood pressure is 160. Blood pressure is 100. GENERAL: He is lethargic and very dehydrated. HEENT: Mucous membranes are dry. The head, ears, eyes, nose, and mouth were otherwise normal. He is tachypneic. CHEST: Clear. CARDIAC: Normal except for sinus tachycardia. ABDOMEN: Flat and soft. EXTREMITIES: Normal. He is lethargic. IMPRESSION: 1. Diabetic ketoacidosis. 2. Dehydration. 3. Tachycardia. 4. Metabolic acidosis. 5. Major depression. PLAN: 1. ICU management with DKA protocol, rehydration. 2. He will be seen by Psychiatry again. It is clear that this patient is extremely depressed. His behavior amounts to suicide by noncompliance. He really should have a guardian. He had 1 in the past who terminated his case because he was so noncompliant. MMODL / IJN: [id number] /
--- NOTE | 2024-01-22 06:32 | PN ---
PROGRESS NOTE DATE OF SERVICE: 01/20/2024 CHIEF COMPLAINT: DKA with dehydration, metabolic acidosis, and tachycardia. HISTORY OF PRESENT ILLNESS: He is still extremely lethargic. Blood sugars are coming down. He is still tachycardic. PHYSICAL EXAMINATION: GENERAL: He is very dehydrated. CHEST: Clear. CARDIAC: Demonstrates sinus tachycardia. ABDOMEN: Flat, soft, nontender. IMPRESSION: 1. Diabetic ketoacidosis. 2. Metabolic acidosis. 3. Severe dehydration. 4. Depression. PLAN: Continue with ICU management to correct his diabetic ketoacidosis once again. Also will refer him to Psychiatry again. They have seen him in the past and he has been very uncooperative. My concern is that these behaviors are related to depression and will ultimately lead to his demise. MMODL / IJN: [id number] /
== END 2023-12-28 14:10 | disposition home or self-care (01) | DRG 420 ==
LOC: EC 21:24 → 3SCARD 12-26 02:39 → 2SICU 12-26 10:38 → 4SSUR 12-27 17:51
PROVIDERS: ADMIT Internal Medicine; ATTEND Internal Medicine
DX: E10.10 Type 1 diabetes mellitus with ketoacidosis without coma (principal); E10.42 Type 1 diabetes mellitus with diabetic polyneuropathy; X83.8XXA Intentional self-harm by other specified means, initial encounter; Z79.4 Long term (current) use of insulin; I10 Essential (primary) hypertension; F32.9 Major depressive disorder, single episode, unspecified; T38.3X6A Underdosing of insulin and oral hypoglycemic [antidiabetic] drugs, initial encounter; E86.0 Dehydration; E87.5 Hyperkalemia; D72.828 Other elevated white blood cell count; E78.5 Hyperlipidemia, unspecified; F17.210 Nicotine dependence, cigarettes, uncomplicated; F17.290 Nicotine dependence, other tobacco product, uncomplicated; Z91.51 Personal history of suicidal behavior; Z91.128 Patient's intentional underdosing of medication regimen for other reason; Z87.19 Personal history of other diseases of the digestive system; Z79.899 Other long term (current) drug therapy
CPT/HCPCS: 36415; 71045; 80048; 80051; 80053; 82009; 82565; 82803; 82947; 83605; 83735; 84100; 84520; 85025; 85027; 93005; 96360; 96361; 99291

== ENCOUNTER 2024-01-10 10:00 | Inpatient (IN) | payer OTHER ==
[~2024-01-10 10:00] MED LIST: CALCIUM GLUCONATE IN NACL 100 ML IVPB ONE; INSULIN REGULAR 100 UNIT/ML VIAL (IV) ONE; ONDANSETRON 4 MG/2 ML VIAL ONE
[2024-01-10] MEDS ORDERED: MORPHINE SULFATE 4 MG/ML SYRINGE ONE (14:21)
[2024-01-10] MEDS ORDERED: ONDANSETRON 4 MG/2 ML VIAL ONE (14:21)
[2024-01-11] MEDS ORDERED: ONDANSETRON 4 MG/2 ML VIAL ONE ×4 (00:48→22:18)
[2024-01-12] MEDS ORDERED: ONDANSETRON 4 MG/2 ML VIAL ONE ×2 (04:30→20:59)
[2024-01-13] MEDS ORDERED: MULTIVITAMINS, THERA 1 EACH TAB ONE (09:30)
[2024-01-13] MEDS ORDERED: PANTOPRAZOLE 40 MG/10 ML VIAL ONE (09:30)
--- NOTE | 2024-02-09 10:28 | DS ---
DISCHARGE SUMMARY 384 CHIEF COMPLAINT: DKA. HISTORY OF PRESENT ILLNESS AND PHYSICAL EXAMINATION: Details of this man's history and physical can be found in the initial workup. LABORATORY STUDIES: While he was in the hospital, he had laboratory studies, details of which can be found in the laboratory section of his chart. COURSE IN THE HOSPITAL: After admission, he was placed on bedrest. Started on intravenous fluids. Blood sugars were brought down. Gap closed. He was doing well and then he signed out against medical advice on the . FINAL DIAGNOSES: 1. Diabetic ketoacidosis. 2. Dehydration. 3. Gastroparesis. 4. Peripheral diabetic neuropathy. 5. Major depression. OPERATIONS: None. CONSULTATION: None. He is improved. MMODL / IJN: [id number] /
== END 2024-01-13 10:00 | disposition home or self-care (01) | DRG 420 ==
LOC: 3SCARD 10:00 → UNDODISIN 10:00
PROVIDERS: ADMIT Internal Medicine; ATTEND Internal Medicine
DX: E10.10 Type 1 diabetes mellitus with ketoacidosis without coma (principal); E10.43 Type 1 diabetes mellitus with diabetic autonomic (poly)neuropathy; Z79.4 Long term (current) use of insulin; G93.41 Metabolic encephalopathy; R00.0 Tachycardia, unspecified; Z88.5 Allergy status to narcotic agent; Z88.8 Allergy status to other drugs, medicaments and biological substances; E11.42 Type 2 diabetes mellitus with diabetic polyneuropathy; K31.84 Gastroparesis; E86.0 Dehydration; F32.9 Major depressive disorder, single episode, unspecified; Z53.29 Procedure and treatment not carried out because of patient's decision for other reasons
CPT/HCPCS: 93005; 96361; 96374; 96375; 99291

== ENCOUNTER 2024-01-14 14:56 | Inpatient (IN) | payer SELFPAY ==
[~2024-01-14 14:56] MED LIST changes: +ALBUTEROL NEB (CONC) 2.5 MG/0.5 ML INHALATION ONE; +METOCLOPRAMIDE 5 MG/ML 2 ML VIAL ONE; -ONDANSETRON 4 MG/2 ML VIAL ONE; +PANTOPRAZOLE 40 MG/10 ML VIAL ONE; +SODIUM BICARB 8.4% 50 ML SYR (1 MEQ/ML) ONE; +SODIUM CHLORIDE 0.9% NEBULIZ 3 ML INHALATION ONE; +SODIUM ZIRCONIUM CYCLOSILICATE 10 GM PACKET ONE; +diphenhydrAMINE 50 MG/ML 1 ML VIAL ONE
--- NOTE | 2024-02-06 12:25 | HP ---
HISTORY AND PHYSICAL CHIEF COMPLAINT: Diabetic ketoacidosis. HISTORY OF PRESENT ILLNESS: This is another admission for this young man who just left the hospital on Friday, the , for the same diagnosis. This is a pattern. This repeated over and over again about which nothing seems to be able to be done. In the past, he had a guardian who gave up on him because of his noncompliance. REVIEW OF SYSTEMS: He is lethargic. He is usually nauseated and vomiting. Past medical history, family history, and personal and social histories are otherwise unremarkable. He does not smoke. PHYSICAL EXAMINATION: VITAL SIGNS: Normal except for tachycardia of 120. Respirations are 35. GENERAL: He is dehydrated and lethargic. CHEST: Clear. CARDIAC: Exam is normal. ABDOMEN: Soft and nontender. EXTREMITIES: Normal. IMPRESSION: 1. Diabetic ketoacidosis. 2. Gastroparesis. 3. Diabetic peripheral neuropathy. 4. Major depression. 5. Dehydration. PLAN: 1. Bedrest. 2. IV fluids and IV insulin. MMODL / IJN: [id number] /
--- NOTE | 2024-02-06 13:30 | DS ---
DISCHARGE SUMMARY CHIEF COMPLAINT: DKA. HISTORY OF PRESENT ILLNESS AND PHYSICAL EXAM: Details of this man's history and physical can be found in the initial workup. COURSE IN THE HOSPITAL: After admission, he was placed on bedrest, started on intravenous fluids with IV insulin. Blood sugars came down, and he became more alert. He was rehydrated. Gap was closed. He was doing well and then he signed out AMA on the . FINAL DIAGNOSES: 1. Diabetic ketoacidosis. 2. Uncontrolled type 1 insulin-dependent diabetes mellitus. 3. Gastroparesis. 4. Peripheral neuropathy. 5. Major depression. OPERATIONS: None. CONSULTATIONS: None. He is improved. MMODL / IJN: [id number] /
--- NOTE | 2024-02-06 13:39 | PN ---
PROGRESS NOTE DATE OF SERVICE: 01/15/2024 CHIEF COMPLAINT: DKA. HISTORY OF PRESENT ILLNESS: This gentleman is still dehydrated and very lethargic. PHYSICAL EXAMINATION: VITAL SIGNS: Normal. Blood sugar has come down. CHEST: Clear. CARDIAC: Normal. ABDOMEN: Soft, nontender. IMPRESSION: Diabetic ketoacidosis-improving with gap closure. PLAN: Advance diet and activity and continue to monitor blood sugars. MMODL / IJN: [id number] /
== END 2024-01-16 13:50 | disposition left against medical advice (07) | DRG 639 ==
LOC: 3NCARDOBS 14:56
PROVIDERS: ADMIT Family Medicine; ATTEND Family Medicine
DX: E10.10 Type 1 diabetes mellitus with ketoacidosis without coma (principal); E86.0 Dehydration; K31.84 Gastroparesis; E10.43 Type 1 diabetes mellitus with diabetic autonomic (poly)neuropathy; E10.42 Type 1 diabetes mellitus with diabetic polyneuropathy; Z53.29 Procedure and treatment not carried out because of patient's decision for other reasons; F32.9 Major depressive disorder, single episode, unspecified; Z91.199 Patient's noncompliance with other medical treatment and regimen due to unspecified reason; Z79.4 Long term (current) use of insulin
CPT/HCPCS: 94640; 96361; 96365; 99285

== ENCOUNTER 2024-01-18 22:19 | Inpatient (IN) | payer OTHER ==
--- NOTE | 2024-01-18 22:25 | ED ---
Recheck HPI - General Stated Complaint: DKA Time Seen by Provider: 01/18/24 22:20 Source: RN notes reviewed, old records reviewed Mode of arrival: EMS Limitations: no limitations - History of Present Illness Initial Comments: This is a 28-year-old male well-known to this emergency department completely altered of her mental status and unable to provide history MD Complaint: abnormal lab (Recheck DKA symptoms) Symptoms Since Prior Visit: worsening pain Treatments Prior to Arrival: other - Related Data Home Medications Medication Instructions Recorded Confirmed Ergocalciferol [Vitamin D2 (1250 1,250 mcg PO Q30D 04/29/23 01/19/24 Mcg = 86473 Iu)] Famotidine [Pepcid] 20 mg PO BID 04/29/23 01/19/24 Gabapentin 600 mg PO TID 04/29/23 01/19/24 Mirtazapine 7.5 mg PO HS 04/29/23 01/19/24 Insulin Lispro 7 units SQ AC-TID 09/17/23 01/19/24 Ferrous Sulfate [Iron (65 MG 325 mg PO DAILY 10/09/23 01/19/24 Elemental)] Omeprazole 20 mg PO BID 10/30/23 01/19/24 Acetaminophen Tab [Tylenol] 500 - 1,000 mg PO Q6H PRN 12/19/23 01/19/24 Insulin Glargine,Hum.rec.anlog 30 units SQ DAILY@0700 12/26/23 01/19/24 [Lantus Solostar Pen] Losartan [Cozaar] 50 mg PO DAILY 01/19/24 01/19/24 Previous Rx's Medication Instructions Recorded Atorvastatin [Lipitor] 20 mg PO HS #30 tab 09/26/23 Metoclopramide [Reglan] 10 mg PO TID PRN #15 tab 11/01/23 Allergies Allergy/AdvReac Type Severity Reaction Status Date / Time No Known Allergies Allergy Verified 01/29/24 18:51 Review of Systems ROS Statement: Those systems with pertinent positive or pertinent negative responses have been documented in the HPI. ROS Other: All systems not noted in ROS Statement are negative. Past Medical History Past Medical History: Asthma, Diabetes Mellitus, Neurologic Disorder, Skin Disorder Additional Past Medical History / Comment(s): IDDM type I, neuropathy bilateral feet, DKA, eczema. History of Any Multi-Drug Resistant Organisms: None Reported Past Surgical History: Adenoidectomy Additional Past Surgical History / Comment(s): gastritis Past Anesthesia/Blood Transfusion Reactions: No Reported Reaction Past Psychological History: Anxiety, Depression Additional Psychological History / Comment(s): Pt has had multiple psychiatric admissions for depression/suicide attempts. Smoking Status: Former smoker Past Alcohol Use History: None Reported Additional Past Alcohol Use History / Comment(s): Pt started smoking cigarettes Pt started occasional vaping in 2009. patient states he hasnt had alcohol in one year. Past Drug Use History: None Reported Additional Drug Use History / Comment(s): almost daily - Past Family History Mother Family Medical History: CVA/TIA Additional Family Medical History / Comment(s): TIA Father Family Medical History: Hyperlipidemia, Hypertension Additional Family Medical History / Comment(s): . General Exam Limitations: language barrier, altered mental status, physical limitation General appearance: alert, anxious, in distress Head exam: Present: atraumatic, normocephalic, normal inspection Eye exam: Present: normal appearance, PERRL, EOMI. Absent: scleral icterus, conjunctival injection, periorbital swelling ENT exam: Present: normal exam, mucous membranes dry Neck exam: Present: normal inspection. Absent: tenderness, meningismus, lymph adenopathy Respiratory exam: Present: respiratory distress, decreased breath sounds, prolonged expiratory. Absent: wheezes, rales, rhonchi, stridor Cardiovascular Exam: Present: normal rhythm, tachycardia, normal heart sounds. Absent: systolic murmur, diastolic murmur, rubs, gallop, clicks GI/Abdominal exam: Present: soft, normal bowel sounds. Absent: distended, tenderness, guarding, rebound, rigid Extremities exam: Present: normal inspection, full ROM, normal capillary refill. Absent: tenderness, pedal edema, joint swelling, calf tenderness Back exam: Present: normal inspection Neurological exam: Present: alert, oriented X3, CN II-XII intact Psychiatric exam: Present: normal affect, normal mood Skin exam: Present: warm, dry, intact, normal color. Absent: rash Course Vital Signs 01/18/24 01/18/24 01/18/24 22:23 23:00 23:30 Temperature 97.6 F Pulse Rate 165 H 160 H 151 H Respiratory 36 H 35 H 34 H Rate Blood Pressure 85/52 87/57 75/45 O2 Sat by Pulse 99 96 98 Oximetry 01/18/24 01/19/24 01/19/24 23:45 00:15 01:00 Temperature Pulse Rate 151 H 144 H 141 H Respiratory 30 H 33 H 33 H Rate Blood Pressure 70/47 97/43 101/81 O2 Sat by Pulse 96 98 96 Oximetry 01/19/24 01/19/24 01/19/24 01:30 01:45 02:00 Temperature Pulse Rate 140 H 140 H 142 H Respiratory 28 H 30 H 47 H Rate Blood Pressure 99/50 85/61 119/71 O2 Sat by Pulse 100 99 98 Oximetry 01/19/24 01/19/24 01/19/24 02:30 02:45 02:48 Temperature 93.5 F L Pulse Rate 141 H 135 H Respiratory 30 H 33 H Rate Blood Pressure 92/59 96/53 O2 Sat by Pulse 100 100 Oximetry 01/19/24 01/19/24 01/19/24 03:00 03:15 03:30 Temperature 93.7 F L 94.1 F L Pulse Rate 133 H 134 H 133 H Respiratory 27 H 41 H 25 H Rate Blood Pressure 100/52 102/58 109/55 O2 Sat by Pulse 100 100 99 Oximetry - Reevaluation(s) Reevaluation #1: 01/19/24 02:33 Medical records reviewed Reevaluation #2: 01/19/24 02:33 Patient informed of mild improvement here in the ER Reevaluation #3: 01/19/24 02:34 Patient's symptoms are mildly improved and continuing to improve Reevaluation #4: Was pt. sent in by a medical professional or institution (, PA, HOSPITALIST, urgent care, hospital, or fci...) When possible be specific @ -no Did you speak to anyone other than the patient for history (EMS, parent, family, police, friend...)? What history was obtained from this source @ -no Did you review nursing and triage notes (agree or disagree)? Why? @ -agree Are old charts reviewed (outside hosp., previous admission, EMS record, old EKG, old radiological studies, urgent care reports/EKG's, fci records)? Report findings @ -yes Differential Diagnosis (chest pain, altered mental status, abdominal pain women, abdominal pain men, vaginal bleeding, weakness, fever, dyspnea, syncope, headache, dizziness, GI bleed, back pain, seizure, CVA, palpatations, mental health, musculoskeletal)? @ -prior EKG interpreted by me (3pts min.). @ -yes X-rays interpreted by me (1pt min.). @ -yes negative for acute disease CT interpreted by me (1pt min.). @ -no U/S interpreted by me (1pt. min.). @ -no What testing was considered but not performed or refused? (CT, X-rays, U/S, labs)? Why? @ -none What meds were considered but not given or refused? Why? @ -none Did you discuss the management of the patient with other professionals (professionals i.e. , PA, HOSPITALIST, lab, RT, psych nurse, nephrology social worker, oil tanker captain, teacher, parcel post officer, case management social worker)? Give summary @ -no Was smoking cessation discussed for >3mins.? @ -no Was critical care preformed (if so, how long)? @ -yes31 Were there social determinants of health that impacted care today? How? (Homelessness, low income, unemployed, alcoholism, drug addiction, transportation, low edu. Level, literacy, decrease access to med. care, [facility], rehab)? @ -none Was there de-escalation of care discussed even if they declined (Discuss DNR or withdrawal of care, Hospice)? DNR status @ -no What co-morbidities impacted this encounter? (DM, HTN, Smoking, COPD, CAD, Cancer, CVA, ARF, Chemo, Hep., AIDS, mental health diagnosis, sleep apnea, morbid obesity)? @ -none Was patient admitted / discharged? Hospital course, mention meds given and route, prescriptions, significant lab abnormalities, going to OR and other pertinent info. @ - 28 male in severe distress DKA Undiagnosed new problem with uncertain prognosis? @ -no Drug Therapy requiring intensive monitoring for toxicity (Heparin, Nitro, Insulin, Cardizem)? @ -no Were any procedures done? @ -no Diagnosis/symptom? @ -DKA Acute, or Chronic, or Acute on Chronic? @ -Acute Uncomplicated (without systemic symptoms) or Complicated (systemic symptoms)? @ -Complicated Side effects of treatment? @ -no Exacerbation, Progression, or Severe Exacerbation? @ -exacerbation Poses a threat to life or bodily function? How? (Chest pain, [place], [place], pneumonia, PE, COPD, DKA, ARF, appy, cholecystitis, CVA, Diverticulitis, Homicidal, Suici mickey, threat to staff... and all critical care pts) @ -yes KA DKA Reevaluation #5: Differential Altered Mental Status: Hypoglycemia, DKA, hypercapnia, ETOH, overdose, CO poisoning, trauma, myxedema coma, HTN encephalopathy, infection, encephalitis, psychosis, intercranial hemorrhage, hepatic encephalopathy, meningitis, CVA, this is not meant to be an all-inclusive list - Consultations Consultation #1: Spoke with ICU who agrees to take the patient to the ICU Consultation #2: Spoke with sound who agrees to admit this patient Medical Decision Making - Medical Decision Making 28 male in severe distress DKA - Lab Data Result diagrams: 01/20/24 05:59 01/20/24 17:40 Lab Results 01/18/24 01/18/24 01/18/24 Range/Units 22:26 22:35 22:35 WBC 28.2 H (3.8-10.6) k/uL RBC 4.59 (4.30-5.90) m/uL Hgb 13.5 D (13.0-17.5) gm/dL Hct 50.3 (39.0-53.0) % MCV 109.6 H D (80.0-100.0) fL MCH 29.5 (25.0-35.0) pg MCHC 26.9 L (31.0-37.0) g/dL RDW 16.8 H (11.5-15.5) % Plt Count 563 H (150-450) k/uL MPV 10.6 Neutrophils % 80 % Lymphocytes % 13 % Monocytes % 5 % Eosinophils % 1 % Basophils % 1 % Neutrophils # 22.4 H (1.3-7.7) k/uL Lymphocytes # 3.8 (1.0-4.8) k/uL Monocytes # 1.4 H (0-1.0) k/uL Eosinophils # 0.2 (0-0.7) k/uL Basophils # 0.2 (0-0.2) k/uL Manual Slide Review Performed Hypochromasia Marked Anisocytosis Slight Macrocytosis Marked A PT 11.6 (10.0-12.5) sec INR 1.1 (<1.2) APTT 30.8 H (22.0-30.0) sec VBG pH (7.31-7.41) VBG pCO2 (37-51) mmHg VBG HCO3 (24-28) mmol/L Sodium (137-145) mmol/L Potassium (3.5-5.1) mmol/L Chloride (98-107) mmol/L Carbon Dioxide (22-30) mmol/L Anion Gap mmol/L BUN (9-20) mg/dL Creatinine (0.66-1.25) mg/dL Est GFR (CKD-EPI)AfAm (>60 ml/min/1.73 sqM) Est GFR (CKD-EPI)NonAf (>60 ml/min/1.73 sqM) Glucose (74-99) mg/dL POC Glucose (mg/dL) >600 H* (70-110) mg/dL POC Glu [employer] ID Yoana Deluna Lactic Ac Sepsis Rflx Plasma Lactic Acid Len (0.7-2.0) mmol/L Calcium (8.4-10.2) mg/dL Phosphorus (2.5-4.5) mg/dL Magnesium (1.6-2.3) mg/dL Total Bilirubin (0.2-1.3) mg/dL AST (17-59) U/L ALT (4-49) U/L Alkaline Phosphatase (38-126) U/L Ammonia (<30) umol/L Creatine Kinase (55-170) U/L Troponin I (0.000-0.034) ng/mL NT-Pro-B Natriuret Pep pg/mL Total Protein (6.3-8.2) g/dL Albumin (3.5-5.0) g/dL Lipase (23-300) U/L Urine Color Urine Appearance (Clear) Urine pH (5.0-8.0) Ur Specific [place] (1.001-1.035) Urine Protein (Negative) Urine Glucose (UA) (Negative) Urine Ketones (Negative) Urine Blood (Negative) Urine Nitrite (Negative) Urine Bilirubin (Negative) Urine Urobilinogen (<2.0) mg/dL Ur Leukocyte Esterase (Negative) Urine WBC (0-5) /hpf Urine Bacteria (None) /hpf Hyaline Casts (0-2) /lpf Granular Casts (0) /lpf Urine Mucus (None) /hpf Serum Alcohol mg/dL Acetone, Qual (Negative) Influenza Type A (PCR) (Not Detectd) Influenza Type B (PCR) (Not Detectd) RSV (PCR) (Not Detectd) SARS-CoV-2 (PCR) (Not Detectd) 01/18/24 01/18/24 01/18/24 Range/Units 22:35 22:35 22:35 WBC (3.8-10.6) k/uL RBC (4.30-5.90) m/uL Hgb (13.0-17.5) gm/dL Hct (39.0-53.0) % MCV (80.0-100.0) fL MCH (25.0-35.0) pg MCHC (31.0-37.0) g/dL RDW (11.5-15.5) % Plt Count (150-450) k/uL MPV Neutrophils % % Lymphocytes % % Monocytes % % Eosinophils % % Basophils % % Neutrophils # (1.3-7.7) k/uL Lymphocytes # (1.0-4.8) k/uL Monocytes # (0-1.0) k/uL Eosinophils # (0-0.7) k/uL Basophils # (0-0.2) k/uL Manual Slide Review Hypochromasia Anisocytosis Macrocytosis PT (10.0-12.5) sec INR (<1.2) APTT (22.0-30.0) sec VBG pH (7.31-7.41) VBG pCO2 (37-51) mmHg VBG HCO3 (24-28) mmol/L Sodium 137 (137-145) mmol/L Potassium 6.4 H* (3.5-5.1) mmol/L Chloride 87 L (98-107) mmol/L Carbon Dioxide <5 L* (22-30) mmol/L Anion Gap mmol/L BUN 25 H (9-20) mg/dL Creatinine 2.36 H (0.66-1.25) mg/dL Est GFR (CKD-EPI)AfAm 42 (>60 ml/min/1.73 sqM) Est GFR (CKD-EPI)NonAf 37 (>60 ml/min/1.73 sqM) Glucose 1251 H* (74-99) mg/dL POC Glucose (mg/dL) (70-110) mg/dL POC Glu [employer] ID Lactic Ac Sepsis Rflx Plasma Lactic Acid Len 7.0 H* (0.7-2.0) mmol/L Calcium 9.8 (8.4-10.2) mg/dL Phosphorus 14.9 H* (2.5-4.5) mg/dL Magnesium 2.7 H (1.6-2.3) mg/dL Total Bilirubin 0.6 (0.2-1.3) mg/dL AST 24 (17-59) U/L ALT 24 (4-49) U/L Alkaline Phosphatase 163 H (38-126) U/L Ammonia 20 (<30) umol/L Creatine Kinase 61 (55-170) U/L Troponin I <0.012 (0.000-0.034) ng/mL NT-Pro-B Natriuret Pep 88 pg/mL Total Protein 6.9 (6.3-8.2) g/dL Albumin 5.1 H (3.5-5.0) g/dL Lipase 71 (23-300) U/L Urine Color Urine Appearance (Clear) Urine pH (5.0-8.0) Ur Specific [place] (1.001-1.035) Urine Protein (Negative) Urine Glucose (UA) (Negative) Urine Ketones (Negative) Urine Blood (Negative) Urine Nitrite (Negative) Urine Bilirubin (Negative) Urine Urobilinogen (<2.0) mg/dL Ur Leukocyte Esterase (Negative) Urine WBC (0-5) /hpf Urine Bacteria (None) /hpf Hyaline Casts (0-2) /lpf Granular Casts (0) /lpf Urine Mucus (None) /hpf Serum Alcohol <10 mg/dL Acetone, Qual Positive (Negative) Influenza Type A (PCR) (Not Detectd) Influenza Type B (PCR) (Not Detectd) RSV (PCR) (Not Detectd) SARS-CoV-2 (PCR) (Not Detectd) 01/18/24 01/18/24 01/18/24 Range/Units 22:35 22:35 23:59 WBC (3.8-10.6) k/uL RBC (4.30-5.90) m/uL Hgb (13.0-17.5) gm/dL Hct (39.0-53.0) % MCV (80.0-100.0) fL MCH (25.0-35.0) pg MCHC (31.0-37.0) g/dL RDW (11.5-15.5) % Plt Count (150-450) k/uL MPV Neutrophils % % Lymphocytes % % Monocytes % % Eosinophils % % Basophils % % Neutrophils # (1.3-7.7) k/uL Lymphocytes # (1.0-4.8) k/uL Monocytes # (0-1.0) k/uL Eosinophils # (0-0.7) k/uL Basophils # (0-0.2) k/uL Manual Slide Review Hypochromasia Anisocytosis Macrocytosis PT (10.0-12.5) sec INR (<1.2) APTT (22.0-30.0) sec VBG pH 6.77 L* (7.31-7.41) VBG pCO2 17 L* (37-51) mmHg VBG HCO3 2 L* (24-28) mmol/L Sodium (137-145) mmol/L Potassium (3.5-5.1) mmol/L Chloride (98-107) mmol/L Carbon Dioxide (22-30) mmol/L Anion Gap mmol/L BUN (9-20) mg/dL Creatinine (0.66-1.25) mg/dL Est GFR (CKD-EPI)AfAm (>60 ml/min/1.73 sqM) Est GFR (CKD-EPI)NonAf (>60 ml/min/1.73 sqM) Glucose (74-99) mg/dL POC Glucose (mg/dL) (70-110) mg/dL POC Glu [employer] ID Lactic Ac Sepsis Rflx Plasma Lactic Acid Len (0.7-2.0) mmol/L Calcium (8.4-10.2) mg/dL Phosphorus (2.5-4.5) mg/dL Magnesium (1.6-2.3) mg/dL Total Bilirubin (0.2-1.3) mg/dL AST (17-59) U/L ALT (4-49) U/L Alkaline Phosphatase (38-126) U/L Ammonia (<30) umol/L Creatine Kinase (55-170) U/L Troponin I (0.000-0.034) ng/mL NT-Pro-B Natriuret Pep pg/mL Total Protein (6.3-8.2) g/dL Albumin (3.5-5.0) g/dL Lipase (23-300) U/L Urine Color Colorless Urine Appearance Clear (Clear) Urine pH 5.0 (5.0-8.0) Ur Specific [place] 1.023 (1.001-1.035) Urine Protein Trace H (Negative) Urine Glucose (UA) 4+ H (Negative) Urine Ketones 3+ H (Negative) Urine Blood Small H (Negative) Urine Nitrite Negative (Negative) Urine Bilirubin Negative (Negative) Urine Urobilinogen <2.0 (<2.0) mg/dL Ur Leukocyte Esterase Negative (Negative) Urine WBC 6 H (0-5) /hpf Urine Bacteria Rare H (None) /hpf Hyaline Casts 2 (0-2) /lpf Granular Casts 1 (0) /lpf Urine Mucus Rare H (None) /hpf Serum Alcohol mg/dL Acetone, Qual (Negative) Influenza Type A (PCR) Not Detected (Not Detectd) Influenza Type B (PCR) Not Detected (Not Detectd) RSV (PCR) Not Detected (Not Detectd) SARS-CoV-2 (PCR) Not Detected (Not Detectd) 01/19/24 Range/Units 00:20 WBC (3.8-10.6) k/uL RBC (4.30-5.90) m/uL Hgb (13.0-17.5) gm/dL Hct (39.0-53.0) % MCV (80.0-100.0) fL MCH (25.0-35.0) pg MCHC (31.0-37.0) g/dL RDW (11.5-15.5) % Plt Count (150-450) k/uL MPV Neutrophils % % Lymphocytes % % Monocytes % % Eosinophils % % Basophils % % Neutrophils # (1.3-7.7) k/uL Lymphocytes # (1.0-4.8) k/uL Monocytes # (0-1.0) k/uL Eosinophils # (0-0.7) k/uL Basophils # (0-0.2) k/uL Manual Slide Review Hypochromasia Anisocytosis Macrocytosis PT (10.0-12.5) sec INR (<1.2) APTT (22.0-30.0) sec VBG pH (7.31-7.41) VBG pCO2 (37-51) mmHg VBG HCO3 (24-28) mmol/L Sodium (137-145) mmol/L Potassium (3.5-5.1) mmol/L Chloride (98-107) mmol/L Carbon Dioxide (22-30) mmol/L Anion Gap mmol/L BUN (9-20) mg/dL Creatinine (0.66-1.25) mg/dL Est GFR (CKD-EPI)AfAm (>60 ml/min/1.73 sqM) Est GFR (CKD-EPI)NonAf (>60 ml/min/1.73 sqM) Glucose (74-99) mg/dL POC Glucose (mg/dL) (70-110) mg/dL POC Glu [employer] Operator ID Lactic Ac Sepsis Rflx Y Plasma Lactic Acid Len (0.7-2.0) mmol/L Calcium (8.4-10.2) mg/dL Phosphorus (2.5-4.5) mg/dL Magnesium (1.6-2.3) mg/dL Total Bilirubin (0.2-1.3) mg/dL AST (17-59) U/L ALT (4-49) U/L Alkaline Phosphatase (38-126) U/L Ammonia (<30) umol/L Creatine Kinase (55-170) U/L Troponin I (0.000-0.034) ng/mL NT-Pro-B Natriuret Pep pg/mL Total Protein (6.3-8.2) g/dL Albumin (3.5-5.0) g/dL Lipase (23-300) U/L Urine Color Urine Appearance (Clear) Urine pH (5.0-8.0) Ur Specific [place] (1.001-1.035) Urine Protein (Negative) Urine Glucose (UA) (Negative) Urine Ketones (Negative) Urine Blood (Negative) Urine Nitrite (Negative) Urine Bilirubin (Negative) Urine Urobilinogen (<2.0) mg/dL Ur Leukocyte Esterase (Negative) Urine WBC (0-5) /hpf Urine Bacteria (None) /hpf Hyaline Casts (0-2) /lpf Granular Casts (0) /lpf Urine Mucus (None) /hpf Serum Alcohol mg/dL Acetone, Qual (Negative) Influenza Type A (PCR) (Not Detectd) Influenza Type B (PCR) (Not Detectd) RSV (PCR) (Not Detectd) SARS-CoV-2 (PCR) (Not Detectd) - EKG Data -: EKG Interpreted by Me (EKG shows sinus tachycardia 164 QRS 101 QTc 370) - Radiology Data Radiology results: report reviewed (Chest x-ray is negative for acute disease), image reviewed Critical Care Time Critical Care Time: Yes Total Critical Care Time: 31 Disposition Clinical Impression: Vomiting, IDDM (insulin dependent diabetes mellitus), Dehydration, Diabetic ketoacidosis associated with type 1 diabetes mellitus, Altered mental status Disposition: ADMITTED IP TO THIS HOSP Condition: Critical Is patient prescribed a controlled substance at d/c from ED?: No Time of Disposition: 02:00
[2024-01-18 22:32] LABS: Glucose,Whole Blood >600 mg/dL (70-110)
[2024-01-18] MEDS: SODIUM CHLORIDE 0.9% 500 ML 500 ML IV STA (22:37)
[2024-01-18] MEDS: SODIUM CHLORIDE 0.9% 1,000 ML IV STA ×2 (22:37→22:40)
[2024-01-18 23:08] LABS: ALT 24 U/L (4-49); AST 24 U/L (17-59); African American GFR (CKD) 42 (>60 ml/min/1.73 sqM); Albumin 5.1 g/dL (3.5-5.0); Alcohol <10 mg/dL; Alkaline Phosphatase 163 U/L (38-126); Blood Urea Nitrogen 25 mg/dL (9-20); Calcium 9.8 mg/dL (8.4-10.2); Chloride 87 mmol/L (98-107); Creatine Kinase 61 U/L (55-170); Lipase 71 U/L (23-300); Magnesium 2.7 mg/dL (1.6-2.3); Non-African American GFR(CKD) 37 (>60 ml/min/1.73 sqM); Sodium 137 mmol/L (137-145); Total Bilirubin 0.6 mg/dL (0.2-1.3); Total Protein 6.9 g/dL (6.3-8.2)
[2024-01-18 23:13] LABS: VBG PH 6.77 (7.31-7.41)
[2024-01-18 23:16] LABS: NT-Pro-B-Type Natriuretic Pept 88 pg/mL
[2024-01-18 23:27] LABS: INR 1.1 (<1.2); Partial Thromboplastin Time 30.8 sec (22.0-30.0); Prothrombin Time 11.6 sec (10.0-12.5)
[2024-01-18] MEDS: SODIUM BICARB 8.4% 50 ML SYR (1 MEQ/ML) IV STA ×2 (23:59)
[2024-01-19 00:05] LABS: Anisocytosis Slight; Basophils # (A) 0.2 k/uL (0-0.2); Basophils % (A) 1 %; Eosinophils # (A) 0.2 k/uL (0-0.7); Eosinophils % (A) 1 %; HCT 50.3 % (39.0-53.0); Hypochromasia Marked; Lymphocytes # (A) 3.8 k/uL (1.0-4.8); Lymphocytes % (A) 13 %; MCH 29.5 pg (25.0-35.0); MCHC 26.9 g/dL (31.0-37.0); Macrocytosis Marked; Mean Platelet Volume 10.6; Monocytes # (A) 1.4 k/uL (0-1.0); Monocytes % (A) 5 %; Neutrophils # (A) 22.4 k/uL (1.3-7.7); Neutrophils % (A) 80 %; Platelet Count 563 k/uL (150-450); RBC 4.59 m/uL (4.30-5.90); RDW 16.8 % (11.5-15.5); WBC 28.2 k/uL (3.8-10.6)
[2024-01-19] MEDS: SODIUM CHLORIDE 0.9% 1,000 ML IV STA (00:05)
[2024-01-19 00:20] LABS: Carbon Dioxide <5 mmol/L (22-30); Phosphorus 14.9 mg/dL (2.5-4.5); Potassium 6.4 mmol/L (3.5-5.1)
[2024-01-19 00:21] LABS: Glucose 1251 mg/dL (74-99)
[2024-01-19] MEDS: CALCIUM GLUCONATE IN NACL 1 GM in SALINE 1 100ML.BAG IVPB ONE (00:22)
[2024-01-19] MEDS ORDERED: Magnesium Replacement Protocol 1 EACH MISC MISCELLANE PRN (00:24)
[2024-01-19] MEDS ORDERED: DEXTROSE 50% SYRINGE 50 ML IVP PRN (00:24)
[2024-01-19] MEDS ORDERED: Potassium Replacement Protocol 1 EACH MISC MISCELLANE PRN (00:24)
[2024-01-19 00:34] LABS: HGB 13.5 gm/dL (13.0-17.5); MCV 109.6 fL (80.0-100.0)
[2024-01-19 00:51] LABS: Glucose,Whole Blood >600 mg/dL (70-110)
[2024-01-19] MEDS: INSULIN REGULAR BOLUS (FROM DRIP BAG) IV ONE (01:03)
[2024-01-19] MEDS: INSULIN REGULAR 100 UNIT in SODIUM CHLORIDE 0.9% 100 ML IV SCH (01:04)
[2024-01-19] MEDS: SODIUM CHLORIDE 0.9% 1,000 ML IV SCH ×2 (01:11→01:14)
[2024-01-19] MEDS: SODIUM CHLORIDE 0.9% 1,000 ML IV ONE ×2 (01:13→06:08)
[2024-01-19 02:19] LABS: Glucose,Whole Blood >600 mg/dL (70-110)
[2024-01-19] MEDS ORDERED: NALOXONE 0.4 MG/ML 1 ML VIAL IV PRN (02:22)
[2024-01-19 03:11] LABS: Glucose,Whole Blood >600 mg/dL (70-110)
[2024-01-19 03:45] LABS: Glucose,Whole Blood >600 mg/dL (70-110)
[2024-01-19 04:09] LABS: Appearance,Urine Clear (Clear); Bacteria,Urine Rare /hpf; Bilirubin,Urine Negative (Negative); Blood,Urine Small (Negative); Color,Urine Colorless; Glucose,Urine (UA) 4+ (Negative); Granular Casts,Urine 1 /lpf (0); Hyaline Casts,Urine 2 /lpf (0-2); Leukocyte Esterase,Urine Negative (Negative); Mucus,Urine Rare /hpf; Nitrite,Urine Negative (Negative); Protein,Urine Trace (Negative); Specific Gravity,Urine 1.023 (1.001-1.035); Urobilinogen,Urine <2.0 mg/dL (<2.0); WBC,Urine 6 /hpf (0-5)
[2024-01-19 04:18] LABS: African American GFR (CKD) 44 (>60 ml/min/1.73 sqM); Blood Urea Nitrogen 27 mg/dL (9-20); Calcium 8.5 mg/dL (8.4-10.2); Chloride 101 mmol/L (98-107); Non-African American GFR(CKD) 38 (>60 ml/min/1.73 sqM); Sodium 145 mmol/L (137-145)
[2024-01-19 04:25] LABS: Ketones,Urine 3+ (Negative)
[2024-01-19 04:26] LABS: Carbon Dioxide <5 mmol/L (22-30); Glucose 1012 mg/dL (74-99)
--- NOTE | 2024-01-19 04:47 | P.CNPUL ---
History of Present Illness Consult date: 01/19/24 Requesting physician: Julian Posadas Reason for consult: other (Diabetic ketoacidosis; ICU management) Chief complaint: Altered mental status, high blood sugars History of present illness: Patient is a 28-year-old white male with history of type 1 diabetes melitis and medication noncompliance. He has had numerous hospital admissions for the same. He presented to emergency department late last night altered and unable to provide any information. Labs consistent with severe diabetic ketoacidosis. Blood glucose was elevated at 1251, serum bicarb less than 5, anion gap unmeasurable, acetone positive. VBG with a pCO2 of 17 and pH of 6.77. Patient was started on the DKA protocol. He is being evaluated in the emergency department. He is lethargic but arousable to verbal stimulation. Unable to provide any information. He is disheveled. Currently on insulin infusion at 7.2 units/h. Normal saline is infusing at 200 and mL per hour. He was initially hypotensive and severely tachycardic, and he has been fluid resuscitated with a total of 2.5 L crystalloid fluid. Not requiring any vasopressors. He was also noted to be hypothermic and as the external warming blanket on. Current, temperature measuring 34.4 C. Tachypneic with Kussmaul respirations. On 3 L/min nasal cannula. Chest x-ray does not show any acute infiltrates, note that the right costophrenic angle is excluded. Hyperkalemic on arrival with a potassium of 6.4. Peaked T waves on EKG. Has received 2 A of sodium bicarb, 1 g of calcium gluconate, and the treatment for his DKA. CBC demonstrates elevated WBC count, likely reactive DKA. No obvious infectious source identified. CMP: Sodium 137, potassium 6.4, chloride 87, serum bicarb less than 5, BUN 25, creatinine 2.36, glucose 1251. Lactic elevated at 7. Magnesium 2.7, phosphorus 14.9. LFTs unremarkable. Lipase 71. Troponin less than 0.012. NT proBNP 88. Serum alcohol level less than 10. Negative for influenza, RSV, COVID. Patient will be monitored in the intensive care unit. Review of Systems ROS unobtainable: due to mental status Past Medical History Past Medical History: Asthma, Diabetes Mellitus, Neurologic Disorder, Skin Disorder Additional Past Medical History / Comment(s): IDDM type I, neuropathy bilateral feet, DKA, eczema. History of Any Multi-Drug Resistant Organisms: None Reported Past Surgical History: Adenoidectomy Additional Past Surgical History / Comment(s): gastritis Past Anesthesia/Blood Transfusion Reactions: No Reported Reaction Past Psychological History: Anxiety, Depression Additional Psychological History / Comment(s): Pt has had multiple psychiatric admissions for depression/suicide attempts. Smoking Status: Former smoker Past Alcohol Use History: None Reported Additional Past Alcohol Use History / Comment(s): Pt started smoking cigarettes Pt started occasional vaping in 2009. patient states he hasnt had alcohol in one year. Past Drug Use History: None Reported Additional Drug Use History / Comment(s): almost daily - Past Family History Mother Family Medical History: CVA/TIA Additional Family Medical History / Comment(s): TIA Father Family Medical History: Hyperlipidemia, Hypertension Additional Family Medical History / Comment(s): . Medications and Allergies Home Medications Medication Instructions Recorded Confirmed Type Ergocalciferol [Vitamin D2 (1250 1,250 mcg PO Q30D 04/29/23 12/26/23 History Mcg = 91668 Iu)] Famotidine [Pepcid] 20 mg PO BID 04/29/23 12/26/23 History Gabapentin 600 mg PO TID 04/29/23 12/26/23 History Mirtazapine 7.5 mg PO HS 04/29/23 12/26/23 History Insulin Lispro 7 units SQ AC-TID 09/17/23 12/26/23 History Atorvastatin [Lipitor] 20 mg PO HS #30 tab 09/26/23 12/26/23 Rx Ferrous Sulfate [Iron (65 MG 325 mg PO DAILY 10/09/23 12/26/23 History Elemental)] Omeprazole 20 mg PO BID 10/30/23 12/26/23 History Metoclopramide [Reglan] 10 mg PO TID PRN #15 tab 11/01/23 12/26/23 Rx Losartan [Cozaar] 100 mg PO DAILY #30 tab 11/09/23 12/26/23 Rx Ibuprofen [Motrin] 600 mg PO Q8HR PRN #30 tab 11/18/23 12/26/23 Rx Acetaminophen Tab [Tylenol] 500 - 1,000 mg PO Q6H PRN 12/19/23 12/26/23 History Insulin Glargine,Hum.rec.anlog 30 units SQ DAILY@0700 12/26/23 12/26/23 History [Lantus Solostar Pen] Allergies Allergy/AdvReac Type Severity Reaction Status Date / Time No Known Allergies Allergy Verified 12/26/23 09:45 Physical Exam Vitals: Vital Signs Temp Pulse Resp BP Pulse Ox 01/19/24 04:00 34.7 F L 131 H 25 H 118/100 01/19/24 03:45 130 H 25 H 01/19/24 03:30 94.1 F L 133 H 25 H 109/55 99 01/19/24 03:15 134 H 41 H 102/58 100 01/19/24 03:00 93.7 F L 133 H 27 H 100/52 100 01/19/24 02:48 93.5 F L 01/19/24 02:45 135 H 33 H 96/53 100 01/19/24 02:30 141 H 30 H 92/59 100 01/19/24 02:00 142 H 47 H 119/71 98 01/19/24 01:45 140 H 30 H 85/61 99 01/19/24 01:30 140 H 28 H 99/50 100 01/19/24 01:00 141 H 33 H 101/81 96 01/19/24 00:15 144 H 33 H 97/43 98 01/18/24 23:45 151 H 30 H 70/47 96 01/18/24 23:30 151 H 34 H 75/45 98 01/18/24 23:00 160 H 35 H 87/57 96 01/18/24 22:23 97.6 F 165 H 36 H 85/52 99 Intake and Output 01/18/24 01/18/24 01/19/24 14:59 22:59 06:59 Output Total 925 Balance -925 Output: Urine 925 Uretheral ([place]) 925 Other: Weight 72.575 kg GENERAL EXAM: 28-year-old white male, lethargic but arousable to verbal stimulation. HEAD: Normocephalic and atraumatic EYES: Normal reaction of pupils, equal size. NOSE: Clear with pink turbinates. THROAT: No erythema or exudates. Dry mucous membranes. Poor dentition. NECK: No masses, no JVD. CHEST: No chest wall deformity. LUNGS: Equal air entry with no crackles, wheeze, rhonchi or dullness. Tachypneic with Kussmaul respirations. On 3 L/min nasal cannula. SpO2 100%. No acute distress. CVS: S1 and S2 normal with no audible murmur, regular rhythm. No extra heart sounds ABDOMEN: No hepatosplenomegaly, active bowel sounds, no guarding or rigidity. SPINE: No scoliosis or deformity SKIN: No rashes CENTRAL NERVOUS SYSTEM: No focal deficits, tone is normal in all 4 extremities. EXTREMITIES: There is no peripheral edema, clubbing, or cyanosis. Peripheral pulses are intact. Results - Laboratory Findings CBC and BMP: 01/18/24 22:35 01/18/24 22:35 PT/INR, D-dimer PT 11.6 sec (10.0-12.5) 01/18/24 22:35 INR 1.1 (<1.2) 01/18/24 22:35 Abnormal lab findings: Abnormal Labs 01/18/24 01/18/24 01/18/24 22:26 22:35 22:35 WBC 28.2 H MCV 109.6 H D MCHC 26.9 L RDW 16.8 H Plt Count 563 H Neutrophils # 22.4 H Monocytes # 1.4 H Macrocytosis Marked A APTT 30.8 H VBG pH VBG pCO2 VBG HCO3 Potassium Chloride Carbon Dioxide BUN Creatinine Glucose POC Glucose (mg/dL) >600 H* Plasma Lactic Acid Len Phosphorus Magnesium Alkaline Phosphatase Albumin 01/18/24 01/18/24 01/18/24 22:35 22:35 22:35 WBC MCV MCHC RDW Plt Count Neutrophils # Monocytes # Macrocytosis APTT VBG pH 6.77 L* VBG pCO2 17 L* VBG HCO3 2 L* Potassium 6.4 H* Chloride 87 L Carbon Dioxide <5 L* BUN 25 H Creatinine 2.36 H Glucose 1251 H* POC Glucose (mg/dL) Plasma Lactic Acid Len 7.0 H* Phosphorus 14.9 H* Magnesium 2.7 H Alkaline Phosphatase 163 H Albumin 5.1 H 01/19/24 01/19/24 01/19/24 00:49 02:12 03:09 WBC MCV MCHC RDW Plt Count Neutrophils # Monocytes # Macrocytosis APTT VBG pH VBG pCO2 VBG HCO3 Potassium Chloride Carbon Dioxide BUN Creatinine Glucose POC Glucose (mg/dL) >600 H* >600 H* >600 H* Plasma Lactic Acid Len Phosphorus Magnesium Alkaline Phosphatase Albumin 01/19/24 03:42 WBC MCV MCHC RDW Plt Count Neutrophils # Monocytes # Macrocytosis APTT VBG pH VBG pCO2 VBG HCO3 Potassium Chloride Carbon Dioxide BUN Creatinine Glucose POC Glucose (mg/dL) >600 H* Plasma Lactic Acid Len Phosphorus Magnesium Alkaline Phosphatase Albumin - Diagnostic Findings Chest x-ray: image reviewed Assessment and Plan Assessment: Acute diabetic ketoacidosis, likely secondary to medication noncompliance. Patient has had numerous hospital admissions for DKA. Severe anion gap metabolic acidosis, secondary to above and lactic acidosis Severe hyperkalemia Hyperphosphatemia Severe dehydration Acute kidney injury, secondary to above Acute leukocytosis, likely reactive to DKA Type 1 diabetes mellitus, with poor medication compliance Diabetic neuropathy History of major depression Plan: Patient is being admitted to the intensive care unit Continue DKA protocol Insulin continues at 7.2 units/h. Currently, normal saline is infusing at 200 mL/h. Monitor electrolytes, repeat BMP is pending. Hyperkalemia was initially treated in the emergency department, awaiting repeat value. Continue with external warming blanket We will continue to follow the patient while in the intensive care unit I have personally seen and examined the patient, performed the documentation and the assessment and plan as written. Number of minutes spent on the visit:20 Time with Patient: Greater than 30
[2024-01-19 05:10] LABS: Glucose,Whole Blood >600 mg/dL (70-110)
[2024-01-19 05:15] LABS: Phosphorus 12.1 mg/dL (2.5-4.5)
[2024-01-19] MEDS: SODIUM BICARB 8.4% 50 ML SYR (1 MEQ/ML) IV STA (06:13)
[2024-01-19 06:22] LABS: Glucose,Whole Blood 512 mg/dL (70-110)
[2024-01-19 06:24] LABS: Glucose,Whole Blood 483 mg/dL (70-110)
[2024-01-19 08:21] LABS: Glucose,Whole Blood 279 mg/dL (70-110)
[2024-01-19] MEDS: ONDANSETRON 4 MG/2 ML VIAL IVP PRN (08:28)
[2024-01-19] MEDS: D5-0.45% NACL WITH KCL 20MEQ/L 1,000 ML IV SCH (08:28)
[2024-01-19] MEDS: PANTOPRAZOLE 40 MG/10 ML VIAL IVP SCH ×2 (08:28→21:14)
[2024-01-19 09:14] LABS: African American GFR (CKD) 78 (>60 ml/min/1.73 sqM); Anion Gap 25 mmol/L; Blood Urea Nitrogen 24 mg/dL (9-20); Carbon Dioxide 12 mmol/L (22-30); Chloride 114 mmol/L (98-107); Glucose 312 mg/dL (74-99); Non-African American GFR(CKD) 68 (>60 ml/min/1.73 sqM); Phosphorus 1.9 mg/dL (2.5-4.5); Potassium 4.1 mmol/L (3.5-5.1); Sodium 151 mmol/L (137-145)
[2024-01-19 09:28] LABS: Glucose,Whole Blood 214 mg/dL (70-110)
[2024-01-19 10:15] LABS: Glucose,Whole Blood 165 mg/dL (70-110)
[2024-01-19 11:04] LABS: Glucose,Whole Blood 119 mg/dL (70-110)
[2024-01-19] MEDS: ONDANSETRON 4 MG/2 ML VIAL ONE (11:32)
[2024-01-19] MEDS: PANTOPRAZOLE 40 MG/10 ML VIAL ONE (11:32)
[2024-01-19] MEDS: SODIUM BICARB 8.4% 50 ML SYR (1 MEQ/ML) ONE (11:33)
[2024-01-19 11:58] LABS: Glucose,Whole Blood 113 mg/dL (70-110)
[2024-01-19 12:01] LABS: African American GFR (CKD) >90 (>60 ml/min/1.73 sqM); Anion Gap 17 mmol/L; Blood Urea Nitrogen 24 mg/dL (9-20); Carbon Dioxide 19 mmol/L (22-30); Chloride 117 mmol/L (98-107); Glucose 137 mg/dL (74-99); Magnesium 2.6 mg/dL (1.6-2.3); Non-African American GFR(CKD) >90 (>60 ml/min/1.73 sqM); Potassium 3.9 mmol/L (3.5-5.1); Sodium 153 mmol/L (137-145)
[2024-01-19] MEDS: METOCLOPRAMIDE 5 MG/ML 2 ML VIAL IVP PRN (12:06)
[2024-01-19 12:28] LABS: Amorphous Sediment,Urine Occasional /hpf; Appearance,Urine Cloudy (Clear); Bacteria,Urine Rare /hpf; Bilirubin,Urine 1+ (Negative); Blood,Urine Trace (Negative); Color,Urine Colorless; Glucose,Urine (UA) 4+ (Negative); Hyaline Casts,Urine 2 /lpf (0-2); Leukocyte Esterase,Urine Negative (Negative); Mucus,Urine Rare /hpf; Nitrite,Urine Negative (Negative); PH, Urine 5.5 (5.0-8.0); Protein,Urine 1+ (Negative); RBC,Urine 1 /hpf (0-5); Squamous Epithelial Cell,Urine <1 /hpf (0-4); WBC,Urine 2 /hpf (0-5)
[2024-01-19 12:30] LABS: Ketones,Urine 4+ (Negative)
--- NOTE | 2024-01-19 12:53 | P.GSCN ---
History of Present Illness Consult date: 01/19/24 History of present illness: CHIEF COMPLAINT: DKA Reason for consult coffee-ground emesis HISTORY OF PRESENT ILLNESS: This is a 28-year-old male with history of type 1 di abetes mellitus and noncompliance with medications. He is admitted to the ICU with DKA. He is on insulin drip remains tachycardic. He has had 4 episodes of coffee-ground emesis and nausea. His last EGD was in October 2022 and had showed evidence of gastritis. No reported history of gastric ulcers. Patient has been lethargic and did have altered mental status on presentation. PAST MEDICAL HISTORY: Asthma, Diabetes Mellitus type I, DKA, neurologic Disorder, Skin Disorder, gastritis, anxiety, depression, suicide attempts PAST SURGICAL HISTORY: Adenoidectomy MEDICATIONS: See below ALLERGIES: See below SOCIAL HISTORY: Nicotine dependence. Occasional vaping. REVIEW OF SYSTEMS: CONSTITUTIONAL: Denies fever or chills. HEENT: Denies blurred vision, vision changes, or eye pain. Denies hemoptysis CARDIOVASCULAR: Denies chest pain or pressure. RESPIRATORY: No shortness of breath. GASTROINTESTINAL: See HPI for pertinent findings HEMATOLOGIC: Denies bleeding disorders. GENITOURINARY: Denies any blood in urine or increased urinary frequency. SKIN: Denies pruitis. Denies rash. PHYSICAL EXAM: VITAL SIGNS: Reviewed GENERAL: no acute distress. ABDOMEN: Soft. Nondistended. Nontender NEUROLOGIC: lethargic LABORATORY DATA: WBC 28.2 HGB 13.5 PLT 563 Sodium 153 potassium 6.4 down to 3.9 CO2 less than 5 up to 19 creatinine 2.36 down to 1.09 glucose 1251 down to 137 Lactic acid 7 down to 5.3 phosphorus 14 down to 2 magnesium 2.6 Positive acetone UA with ketones and glucose IMAGING: ASSESSMENT: 1. Coffee-ground emesis with history of gastritis 2. DKA PLAN: -EGD planned tentatively for , 01/22/[address] Sweeney. Awaiting for resolution of DKA. -Continue ICU management and supportive care of DKA -Continue IV Protonix and antiemetics -Continue to monitor hemoglobin -Continue to monitor for any signs or symptoms of bleeding Thank you for this consultation Physician Media Planner note has been reviewed by physician. Signing provider agrees with the documented findings, assessment, and plan of care. Past Medical History Past Medical History: Asthma, Diabetes Mellitus, Neurologic Disorder, Skin Disorder Additional Past Medical History / Comment(s): IDDM type I, neuropathy bilateral feet, DKA, eczema. History of Any Multi-Drug Resistant Organisms: None Reported Past Surgical History: Adenoidectomy Additional Past Surgical History / Comment(s): gastritis Past Anesthesia/Blood Transfusion Reactions: No Reported Reaction Past Psychological History: Anxiety, Depression Additional Psychological History / Comment(s): Pt has had multiple psychiatric admissions for depression/suicide attempts. Smoking Status: Former smoker Past Alcohol Use History: None Reported Additional Past Alcohol Use History / Comment(s): Pt started smoking cigarettes Pt started occasional vaping in 2009. patient states he hasnt had alcohol in one year. Past Drug Use History: None Reported Additional Drug Use History / Comment(s): almost daily - Past Family History Mother Family Medical History: CVA/TIA Additional Family Medical History / Comment(s): TIA Father Family Medical History: Hyperlipidemia, Hypertension Additional Family Medical History / Comment(s): . Medications and Allergies Home Medications Medication Instructions Recorded Confirmed Type Ergocalciferol [Vitamin D2 (1250 1,250 mcg PO Q30D 04/29/23 01/19/24 History Mcg = 68921 Iu)] Famotidine [Pepcid] 20 mg PO BID 04/29/23 01/19/24 History Gabapentin 600 mg PO TID 04/29/23 01/19/24 History Mirtazapine 7.5 mg PO HS 04/29/23 01/19/24 History Insulin Lispro 7 units SQ AC-TID 09/17/23 01/19/24 History Atorvastatin [Lipitor] 20 mg PO HS #30 tab 09/26/23 01/19/24 Rx Ferrous Sulfate [Iron (65 MG 325 mg PO DAILY 10/09/23 01/19/24 History Elemental)] Omeprazole 20 mg PO BID 10/30/23 01/19/24 History Metoclopramide [Reglan] 10 mg PO TID PRN #15 tab 11/01/23 01/19/24 Rx Ibuprofen [Motrin] 600 mg PO Q8HR PRN #30 tab 11/18/23 01/19/24 Rx Acetaminophen Tab [Tylenol] 500 - 1,000 mg PO Q6H PRN 12/19/23 01/19/24 History Insulin Glargine,Hum.rec.anlog 30 units SQ DAILY@0700 12/26/23 01/19/24 History [Lantus Solostar Pen] Losartan [Cozaar] 50 mg PO DAILY 01/19/24 01/19/24 History Allergies Allergy/AdvReac Type Severity Reaction Status Date / Time No Known Allergies Allergy Verified 01/19/24 08:57 Surgical - Exam Vital Signs Temp Pulse Resp BP Pulse Ox 97.6 F 165 H 36 H 85/52 99 01/18/24 22:23 01/18/24 22:23 01/18/24 22:23 01/18/24 22:23 01/18/24 22:23 Results - Labs 01/18/24 22:35 01/19/24 11:26 Abnormal Lab Results - Last 24 Hours (Table) 01/18/24 01/18/24 01/18/24 Range/Units 22:26 22:35 22:35 WBC 28.2 H (3.8-10.6) k/uL MCV 109.6 H D (80.0-100.0) fL MCHC 26.9 L (31.0-37.0) g/dL RDW 16.8 H (11.5-15.5) % Plt Count 563 H (150-450) k/uL Neutrophils # 22.4 H (1.3-7.7) k/uL Monocytes # 1.4 H (0-1.0) k/uL Macrocytosis Marked A APTT 30.8 H (22.0-30.0) sec VBG pH (7.31-7.41) VBG pCO2 (37-51) mmHg VBG HCO3 (24-28) mmol/L Sodium (137-145) mmol/L Potassium (3.5-5.1) mmol/L Chloride (98-107) mmol/L Carbon Dioxide (22-30) mmol/L BUN (9-20) mg/dL Creatinine (0.66-1.25) mg/dL Glucose (74-99) mg/dL POC Glucose (mg/dL) >600 H* (70-110) mg/dL Plasma Lactic Acid Len (0.7-2.0) mmol/L Phosphorus (2.5-4.5) mg/dL Magnesium (1.6-2.3) mg/dL Alkaline Phosphatase (38-126) U/L Albumin (3.5-5.0) g/dL Urine Protein (Negative) Urine Glucose (UA) (Negative) Urine Ketones (Negative) Urine Blood (Negative) Urine Bilirubin (Negative) Urine WBC (0-5) /hpf Amorphous Sediment (None) /hpf Urine Bacteria (None) /hpf Urine Mucus (None) /hpf 01/18/24 01/18/24 01/18/24 Range/Units 22:35 22:35 22:35 WBC (3.8-10.6) k/uL MCV (80.0-100.0) fL MCHC (31.0-37.0) g/dL RDW (11.5-15.5) % Plt Count (150-450) k/uL Neutrophils # (1.3-7.7) k/uL Monocytes # (0-1.0) k/uL Macrocytosis APTT (22.0-30.0) sec VBG pH 6.77 L* (7.31-7.41) VBG pCO2 17 L* (37-51) mmHg VBG HCO3 2 L* (24-28) mmol/L Sodium (137-145) mmol/L Potassium 6.4 H* (3.5-5.1) mmol/L Chloride 87 L (98-107) mmol/L Carbon Dioxide <5 L* (22-30) mmol/L BUN 25 H (9-20) mg/dL Creatinine 2.36 H (0.66-1.25) mg/dL Glucose 1251 H* (74-99) mg/dL POC Glucose (mg/dL) (70-110) mg/dL Plasma Lactic Acid Len 7.0 H* (0.7-2.0) mmol/L Phosphorus 14.9 H* (2.5-4.5) mg/dL Magnesium 2.7 H (1.6-2.3) mg/dL Alkaline Phosphatase 163 H (38-126) U/L Albumin 5.1 H (3.5-5.0) g/dL Urine Protein (Negative) Urine Glucose (UA) (Negative) Urine Ketones (Negative) Urine Blood (Negative) Urine Bilirubin (Negative) Urine WBC (0-5) /hpf Amorphous Sediment (None) /hpf Urine Bacteria (None) /hpf Urine Mucus (None) /hpf 01/18/24 01/19/24 01/19/24 Range/Units 23:59 00:49 02:12 WBC (3.8-10.6) k/uL MCV (80.0-100.0) fL MCHC (31.0-37.0) g/dL RDW (11.5-15.5) % Plt Count (150-450) k/uL Neutrophils # (1.3-7.7) k/uL Monocytes # (0-1.0) k/uL Macrocytosis APTT (22.0-30.0) sec VBG pH (7.31-7.41) VBG pCO2 (37-51) mmHg VBG HCO3 (24-28) mmol/L Sodium (137-145) mmol/L Potassium (3.5-5.1) mmol/L Chloride (98-107) mmol/L Carbon Dioxide (22-30) mmol/L BUN (9-20) mg/dL Creatinine (0.66-1.25) mg/dL Glucose (74-99) mg/dL POC Glucose (mg/dL) >600 H* >600 H* (70-110) mg/dL Plasma Lactic Acid Len (0.7-2.0) mmol/L Phosphorus (2.5-4.5) mg/dL Magnesium (1.6-2.3) mg/dL Alkaline Phosphatase (38-126) U/L Albumin (3.5-5.0) g/dL Urine Protein Trace H (Negative) Urine Glucose (UA) 4+ H (Negative) Urine Ketones 3+ H (Negative) Urine Blood Small H (Negative) Urine Bilirubin (Negative) Urine WBC 6 H (0-5) /hpf Amorphous Sediment (None) /hpf Urine Bacteria Rare H (None) /hpf Urine Mucus Rare H (None) /hpf 01/19/24 01/19/24 01/19/24 Range/Units 02:20 03:09 03:42 WBC (3.8-10.6) k/uL MCV (80.0-100.0) fL MCHC (31.0-37.0) g/dL RDW (11.5-15.5) % Plt Count (150-450) k/uL Neutrophils # (1.3-7.7) k/uL Monocytes # (0-1.0) k/uL Macrocytosis APTT (22.0-30.0) sec VBG pH (7.31-7.41) VBG pCO2 (37-51) mmHg VBG HCO3 (24-28) mmol/L Sodium (137-145) mmol/L Potassium 6.0 H (3.5-5.1) mmol/L Chloride (98-107) mmol/L Carbon Dioxide <5 L* (22-30) mmol/L BUN 27 H (9-20) mg/dL Creatinine 2.28 H (0.66-1.25) mg/dL Glucose 1012 H* (74-99) mg/dL POC Glucose (mg/dL) >600 H* (70-110) mg/dL Plasma Lactic Acid Len 8.5 H* (0.7-2.0) mmol/L Phosphorus 12.1 H* (2.5-4.5) mg/dL Magnesium (1.6-2.3) mg/dL Alkaline Phosphatase (38-126) U/L Albumin (3.5-5.0) g/dL Urine Protein (Negative) Urine Glucose (UA) (Negative) Urine Ketones (Negative) Urine Blood (Negative) Urine Bilirubin (Negative) Urine WBC (0-5) /hpf Amorphous Sediment (None) /hpf Urine Bacteria (None) /hpf Urine Mucus (None) /hpf 01/19/24 01/19/24 01/19/24 Range/Units 03:42 05:07 06:20 WBC (3.8-10.6) k/uL MCV (80.0-100.0) fL MCHC (31.0-37.0) g/dL RDW (11.5-15.5) % Plt Count (150-450) k/uL Neutrophils # (1.3-7.7) k/uL Monocytes # (0-1.0) k/uL Macrocytosis APTT (22.0-30.0) sec VBG pH (7.31-7.41) VBG pCO2 (37-51) mmHg VBG HCO3 (24-28) mmol/L Sodium (137-145) mmol/L Potassium (3.5-5.1) mmol/L Chloride (98-107) mmol/L Carbon Dioxide (22-30) mmol/L BUN (9-20) mg/dL Creatinine (0.66-1.25) mg/dL Glucose (74-99) mg/dL POC Glucose (mg/dL) >600 H* >600 H* 512 H* (70-110) mg/dL Plasma Lactic Acid Len (0.7-2.0) mmol/L Phosphorus (2.5-4.5) mg/dL Magnesium (1.6-2.3) mg/dL Alkaline Phosphatase (38-126) U/L Albumin (3.5-5.0) g/dL Urine Protein (Negative) Urine Glucose (UA) (Negative) Urine Ketones (Negative) Urine Blood (Negative) Urine Bilirubin (Negative) Urine WBC (0-5) /hpf Amorphous Sediment (None) /hpf Urine Bacteria (None) /hpf Urine Mucus (None) /hpf 01/19/24 01/19/24 01/19/24 Range/Units 06:23 08:19 08:37 WBC (3.8-10.6) k/uL MCV (80.0-100.0) fL MCHC (31.0-37.0) g/dL RDW (11.5-15.5) % Plt Count (150-450) k/uL Neutrophils # (1.3-7.7) k/uL Monocytes # (0-1.0) k/uL Macrocytosis APTT (22.0-30.0) sec VBG pH (7.31-7.41) VBG pCO2 (37-51) mmHg VBG HCO3 (24-28) mmol/L Sodium 151 H (137-145) mmol/L Potassium (3.5-5.1) mmol/L Chloride 114 H (98-107) mmol/L Carbon Dioxide 12 L (22-30) mmol/L BUN 24 H (9-20) mg/dL Creatinine 1.43 H (0.66-1.25) mg/dL Glucose 312 H (74-99) mg/dL POC Glucose (mg/dL) 483 H 279 H (70-110) mg/dL Plasma Lactic Acid Len (0.7-2.0) mmol/L Phosphorus 1.9 L (2.5-4.5) mg/dL Magnesium (1.6-2.3) mg/dL Alkaline Phosphatase (38-126) U/L Albumin (3.5-5.0) g/dL Urine Protein (Negative) Urine Glucose (UA) (Negative) Urine Ketones (Negative) Urine Blood (Negative) Urine Bilirubin (Negative) Urine WBC (0-5) /hpf Amorphous Sediment (None) /hpf Urine Bacteria (None) /hpf Urine Mucus (None) /hpf 01/19/24 01/19/24 01/19/24 Range/Units 08:37 09:27 10:14 WBC (3.8-10.6) k/uL MCV (80.0-100.0) fL MCHC (31.0-37.0) g/dL RDW (11.5-15.5) % Plt Count (150-450) k/uL Neutrophils # (1.3-7.7) k/uL Monocytes # (0-1.0) k/uL Macrocytosis APTT (22.0-30.0) sec VBG pH (7.31-7.41) VBG pCO2 (37-51) mmHg VBG HCO3 (24-28) mmol/L Sodium (137-145) mmol/L Potassium (3.5-5.1) mmol/L Chloride (98-107) mmol/L Carbon Dioxide (22-30) mmol/L BUN (9-20) mg/dL Creatinine (0.66-1.25) mg/dL Glucose (74-99) mg/dL POC Glucose (mg/dL) 214 H 165 H (70-110) mg/dL Plasma Lactic Acid Len 7.5 H* (0.7-2.0) mmol/L Phosphorus (2.5-4.5) mg/dL Magnesium (1.6-2.3) mg/dL Alkaline Phosphatase (38-126) U/L Albumin (3.5-5.0) g/dL Urine Protein (Negative) Urine Glucose (UA) (Negative) Urine Ketones (Negative) Urine Blood (Negative) Urine Bilirubin (Negative) Urine WBC (0-5) /hpf Amorphous Sediment (None) /hpf Urine Bacteria (None) /hpf Urine Mucus (None) /hpf 01/19/24 01/19/24 01/19/24 Range/Units 11:02 11:26 11:26 WBC (3.8-10.6) k/uL MCV (80.0-100.0) fL MCHC (31.0-37.0) g/dL RDW (11.5-15.5) % Plt Count (150-450) k/uL Neutrophils # (1.3-7.7) k/uL Monocytes # (0-1.0) k/uL Macrocytosis APTT (22.0-30.0) sec VBG pH (7.31-7.41) VBG pCO2 (37-51) mmHg VBG HCO3 (24-28) mmol/L Sodium 153 H (137-145) mmol/L Potassium (3.5-5.1) mmol/L Chloride 117 H (98-107) mmol/L Carbon Dioxide 19 L (22-30) mmol/L BUN 24 H (9-20) mg/dL Creatinine (0.66-1.25) mg/dL Glucose 137 H (74-99) mg/dL POC Glucose (mg/dL) 119 H (70-110) mg/dL Plasma Lactic Acid Len 5.3 H* (0.7-2.0) mmol/L Phosphorus 2.0 L (2.5-4.5) mg/dL Magnesium 2.6 H (1.6-2.3) mg/dL Alkaline Phosphatase (38-126) U/L Albumin (3.5-5.0) g/dL Urine Protein (Negative) Urine Glucose (UA) (Negative) Urine Ketones (Negative) Urine Blood (Negative) Urine Bilirubin (Negative) Urine WBC (0-5) /hpf Amorphous Sediment (None) /hpf Urine Bacteria (None) /hpf Urine Mucus (None) /hpf 01/19/24 01/19/24 Range/Units 11:53 11:56 WBC (3.8-10.6) k/uL MCV (80.0-100.0) fL MCHC (31.0-37.0) g/dL RDW (11.5-15.5) % Plt Count (150-450) k/uL Neutrophils # (1.3-7.7) k/uL Monocytes # (0-1.0) k/uL Macrocytosis APTT (22.0-30.0) sec VBG pH (7.31-7.41) VBG pCO2 (37-51) mmHg VBG HCO3 (24-28) mmol/L Sodium (137-145) mmol/L Potassium (3.5-5.1) mmol/L Chloride (98-107) mmol/L Carbon Dioxide (22-30) mmol/L BUN (9-20) mg/dL Creatinine (0.66-1.25) mg/dL Glucose (74-99) mg/dL POC Glucose (mg/dL) 113 H (70-110) mg/dL Plasma Lactic Acid Len (0.7-2.0) mmol/L Phosphorus (2.5-4.5) mg/dL Magnesium (1.6-2.3) mg/dL Alkaline Phosphatase (38-126) U/L Albumin (3.5-5.0) g/dL Urine Protein 1+ H (Negative) Urine Glucose (UA) 4+ H (Negative) Urine Ketones 4+ H (Negative) Urine Blood Trace H (Negative) Urine Bilirubin 1+ H (Negative) Urine WBC (0-5) /hpf Amorphous Sediment Occasional H (None) /hpf Urine Bacteria Rare H (None) /hpf Urine Mucus Rare H (None) /hpf Diabetes panel 01/18/24 01/19/24 01/19/24 Range/Units 22:35 03:42 08:37 Sodium 137 145 151 H (137-145) mmol/L Potassium 6.4 H* 6.0 H 4.1 (3.5-5.1) mmol/L Chloride 87 L 101 114 H (98-107) mmol/L Carbon Dioxide <5 L* <5 L* 12 L (22-30) mmol/L BUN 25 H 27 H 24 H (9-20) mg/dL Creatinine 2.36 H 2.28 H 1.43 H (0.66-1.25) mg/dL Glucose 1251 H* 1012 H* 312 H (74-99) mg/dL Calcium 9.8 8.5 (8.4-10.2) mg/dL AST 24 (17-59) U/L ALT 24 (4-49) U/L Alkaline Phosphatase 163 H (38-126) U/L Total Protein 6.9 (6.3-8.2) g/dL Albumin 5.1 H (3.5-5.0) g/dL 01/19/24 Range/Units 11:26 Sodium 153 H (137-145) mmol/L Potassium 3.9 (3.5-5.1) mmol/L Chloride 117 H (98-107) mmol/L Carbon Dioxide 19 L (22-30) mmol/L BUN 24 H (9-20) mg/dL Creatinine 1.09 (0.66-1.25) mg/dL Glucose 137 H (74-99) mg/dL Calcium 9.0 (8.4-10.2) mg/dL AST (17-59) U/L ALT (4-49) U/L Alkaline Phosphatase (38-126) U/L Total Protein (6.3-8.2) g/dL Albumin (3.5-5.0) g/dL Calcium panel 01/18/24 01/19/24 01/19/24 Range/Units 22:35 03:42 08:37 Calcium 9.8 8.5 (8.4-10.2) mg/dL Phosphorus 14.9 H* 12.1 H* 1.9 L (2.5-4.5) mg/dL Albumin 5.1 H (3.5-5.0) g/dL 01/19/24 Range/Units 11:26 Calcium 9.0 (8.4-10.2) mg/dL Phosphorus 2.0 L (2.5-4.5) mg/dL Albumin (3.5-5.0) g/dL Pituitary panel 01/18/24 01/19/24 01/19/24 Range/Units 22:35 03:42 08:37 Sodium 137 145 151 H (137-145) mmol/L Potassium 6.4 H* 6.0 H 4.1 (3.5-5.1) mmol/L Chloride 87 L 101 114 H (98-107) mmol/L Carbon Dioxide <5 L* <5 L* 12 L (22-30) mmol/L BUN 25 H 27 H 24 H (9-20) mg/dL Creatinine 2.36 H 2.28 H 1.43 H (0.66-1.25) mg/dL Glucose 1251 H* 1012 H* 312 H (74-99) mg/dL Calcium 9.8 8.5 (8.4-10.2) mg/dL 01/19/24 Range/Units 11:26 Sodium 153 H (137-145) mmol/L Potassium 3.9 (3.5-5.1) mmol/L Chloride 117 H (98-107) mmol/L Carbon Dioxide 19 L (22-30) mmol/L BUN 24 H (9-20) mg/dL Creatinine 1.09 (0.66-1.25) mg/dL Glucose 137 H (74-99) mg/dL Calcium 9.0 (8.4-10.2) mg/dL Adrenal panel 01/18/24 01/19/24 01/19/24 Range/Units 22:35 03:42 08:37 Sodium 137 145 151 H (137-145) mmol/L Potassium 6.4 H* 6.0 H 4.1 (3.5-5.1) mmol/L Chloride 87 L 101 114 H (98-107) mmol/L Carbon Dioxide <5 L* <5 L* 12 L (22-30) mmol/L BUN 25 H 27 H 24 H (9-20) mg/dL Creatinine 2.36 H 2.28 H 1.43 H (0.66-1.25) mg/dL Glucose 1251 H* 1012 H* 312 H (74-99) mg/dL Calcium 9.8 8.5 (8.4-10.2) mg/dL Total Bilirubin 0.6 (0.2-1.3) mg/dL AST 24 (17-59) U/L ALT 24 (4-49) U/L Alkaline Phosphatase 163 H (38-126) U/L Total Protein 6.9 (6.3-8.2) g/dL Albumin 5.1 H (3.5-5.0) g/dL 01/19/24 Range/Units 11:26 Sodium 153 H (137-145) mmol/L Potassium 3.9 (3.5-5.1) mmol/L Chloride 117 H (98-107) mmol/L Carbon Dioxide 19 L (22-30) mmol/L BUN 24 H (9-20) mg/dL Creatinine 1.09 (0.66-1.25) mg/dL Glucose 137 H (74-99) mg/dL Calcium 9.0 (8.4-10.2) mg/dL Total Bilirubin (0.2-1.3) mg/dL AST (17-59) U/L ALT (4-49) U/L Alkaline Phosphatase (38-126) U/L Total Protein (6.3-8.2) g/dL Albumin (3.5-5.0) g/dL
[2024-01-19] MEDS: DEXTROSE 5% IN WATER 1,000 ML IV SCH (13:03)
[2024-01-19 13:04] LABS: Glucose,Whole Blood 161 mg/dL (70-110)
[2024-01-19 13:07] LABS: Anisocytosis Slight; HCT 38.5 % (39.0-53.0); Hypochromasia Slight; MCH 29.1 pg (25.0-35.0); MCHC 31.3 g/dL (31.0-37.0); Mean Platelet Volume 9.9; Platelet Count 444 k/uL (150-450); RBC 4.14 m/uL (4.30-5.90); RDW 17.5 % (11.5-15.5); WBC 26.3 k/uL (3.8-10.6)
[2024-01-19 14:08] LABS: Glucose,Whole Blood 211 mg/dL (70-110)
[2024-01-19 14:44] VITALS: BMI 22.9
[2024-01-19 15:41] LABS: Glucose,Whole Blood 248 mg/dL (70-110)
[2024-01-19 16:06] LABS: Glucose,Whole Blood 192 mg/dL (70-110)
[2024-01-19] MEDS: PROCHLORPERAZINE INJ 10 MG/2 ML VIAL IVP PRN (16:22)
[2024-01-19 17:04] LABS: Glucose,Whole Blood 170 mg/dL (70-110)
[2024-01-19 17:10] LABS: African American GFR (CKD) >90 (>60 ml/min/1.73 sqM); Anion Gap 8 mmol/L; Blood Urea Nitrogen 24 mg/dL (9-20); Calcium 8.4 mg/dL (8.4-10.2); Carbon Dioxide 25 mmol/L (22-30); Chloride 115 mmol/L (98-107); Glucose 187 mg/dL (74-99); Magnesium 2.2 mg/dL (1.6-2.3); Non-African American GFR(CKD) >90 (>60 ml/min/1.73 sqM); Phosphorus 2.6 mg/dL (2.5-4.5); Potassium 3.6 mmol/L (3.5-5.1); Sodium 148 mmol/L (137-145)
[2024-01-19 18:19] LABS: Glucose,Whole Blood 171 mg/dL (70-110)
[2024-01-19 18:54] LABS: Glucose,Whole Blood 174 mg/dL (70-110)
[2024-01-19 20:19] LABS: Glucose,Whole Blood 157 mg/dL (70-110)
[2024-01-19 21:08] LABS: African American GFR (CKD) >90 (>60 ml/min/1.73 sqM); Anion Gap 9 mmol/L; Blood Urea Nitrogen 23 mg/dL (9-20); Calcium 8.5 mg/dL (8.4-10.2); Carbon Dioxide 27 mmol/L (22-30); Chloride 110 mmol/L (98-107); Glucose 167 mg/dL (74-99); Magnesium 2.2 mg/dL (1.6-2.3); Non-African American GFR(CKD) >90 (>60 ml/min/1.73 sqM); Phosphorus 3.1 mg/dL (2.5-4.5); Potassium 3.5 mmol/L (3.5-5.1); Sodium 146 mmol/L (137-145)
[2024-01-19 21:21] LABS: Glucose,Whole Blood 153 mg/dL (70-110)
[2024-01-19 22:10] LABS: Glucose,Whole Blood 133 mg/dL (70-110)
[2024-01-19 23:07] LABS: Glucose,Whole Blood 154 mg/dL (70-110)
[2024-01-19] MEDS: POTASSIUM CHLORIDE 10 MEQ in WATER FOR INJECTION 1 100ML.BAG IVPB SCH (23:45)
[2024-01-20 00:15] LABS: Glucose,Whole Blood 149 mg/dL (70-110)
[2024-01-20 00:58] LABS: African American GFR (CKD) >90 (>60 ml/min/1.73 sqM); Anion Gap 7 mmol/L; Blood Urea Nitrogen 22 mg/dL (9-20); Calcium 8.3 mg/dL (8.4-10.2); Carbon Dioxide 28 mmol/L (22-30); Chloride 109 mmol/L (98-107); Glucose 169 mg/dL (74-99); Non-African American GFR(CKD) >90 (>60 ml/min/1.73 sqM); Phosphorus 2.8 mg/dL (2.5-4.5); Potassium 3.4 mmol/L (3.5-5.1); Sodium 144 mmol/L (137-145)
[2024-01-20 01:25] LABS: Glucose,Whole Blood 154 mg/dL (70-110)
[2024-01-20 02:27] LABS: Glucose,Whole Blood 179 mg/dL (70-110)
[2024-01-20 04:15] LABS: Glucose,Whole Blood 194 mg/dL (70-110)
[2024-01-20 05:16] LABS: Glucose,Whole Blood 294 mg/dL (70-110)
[2024-01-20 06:15] LABS: Glucose,Whole Blood 321 mg/dL (70-110)
[2024-01-20 06:17] LABS: Anisocytosis Slight; Basophils # (A) 0.2 k/uL (0-0.2); Basophils % (A) 1 %; Eosinophils # (A) 0.1 k/uL (0-0.7); Eosinophils % (A) 1 %; HCT 34.2 % (39.0-53.0); Hypochromasia Moderate; Lymphocytes # (A) 1.6 k/uL (1.0-4.8); Lymphocytes % (A) 10 %; MCH 29.3 pg (25.0-35.0); MCHC 32.2 g/dL (31.0-37.0); Mean Platelet Volume 7.1; Monocytes # (A) 0.7 k/uL (0-1.0); Monocytes % (A) 4 %; Neutrophils # (A) 12.8 k/uL (1.3-7.7); Neutrophils % (A) 83 %; Platelet Count 365 k/uL (150-450); RBC 3.76 m/uL (4.30-5.90); RDW 17.7 % (11.5-15.5); WBC 15.5 k/uL (3.8-10.6)
[2024-01-20 06:47] LABS: ALT 16 U/L (4-49); AST 22 U/L (17-59); African American GFR (CKD) >90 (>60 ml/min/1.73 sqM); Albumin 3.1 g/dL (3.5-5.0); Alkaline Phosphatase 113 U/L (38-126); Anion Gap 8 mmol/L; Blood Urea Nitrogen 19 mg/dL (9-20); Calcium 8.3 mg/dL (8.4-10.2); Carbon Dioxide 24 mmol/L (22-30); Chloride 107 mmol/L (98-107); Glucose 349 mg/dL (74-99); Magnesium 1.9 mg/dL (1.6-2.3); Non-African American GFR(CKD) >90 (>60 ml/min/1.73 sqM); Phosphorus 2.7 mg/dL (2.5-4.5); Potassium 3.5 mmol/L (3.5-5.1); Sodium 139 mmol/L (137-145); Total Bilirubin 0.5 mg/dL (0.2-1.3); Total Protein 5.3 g/dL (6.3-8.2)
[2024-01-20 07:00] LABS: Glucose,Whole Blood 249 mg/dL (70-110)
[2024-01-20 08:02] LABS: Glucose,Whole Blood 195 mg/dL (70-110)
[2024-01-20 09:04] LABS: Glucose,Whole Blood 166 mg/dL (70-110)
[2024-01-20] MEDS: POTASSIUM CHLORIDE 10 MEQ in WATER FOR INJECTION 1 100ML.BAG IVPB SCH (09:32)
[2024-01-20 10:24] LABS: Glucose,Whole Blood 139 mg/dL (70-110)
--- NOTE | 2024-01-20 10:49 | P.PN ---
Subjective Progress Note Date: 01/20/24 CHIEF COMPLAINT: DKA HISTORY OF PRESENT ILLNESS: Patient's DKA has improved. They are switching him off the insulin drip today. His vomiting has resolved. He is still nauseous with dry heaves. No further episodes of coffee-ground emesis. Denies any abdominal pain. Afebrile. WBC is down from 26-15.5 hemoglobin 12 down to 11 lactic acid 0.9. K3.5 Afebrile. Tachycardia resolved. Patient is not l ethargic today. PHYSICAL EXAM: VITAL SIGNS: Reviewed. GENERAL: no acute distress. ABDOMEN: Soft. Nondistended. Nontender. NEUROLOGIC: Alert and oriented. Cranial nerves II through XII grossly intact. ASSESSMENT: 1. Coffee-ground emesis with history of gastritis 2. DKA 3. Hypokalemia PLAN: -Patient scheduled for EGD on , 01/22/[address] Sweeney -Continue PPI -Potassium being replaced Physician Aurist note has been reviewed by physician. Signing provider agrees with the documented findings, assessment, and plan of care. Objective - Vital Signs Vital signs: Vital Signs Temp 98.0 F 01/20/24 08:00 Pulse 93 01/20/24 10:00 Resp 19 01/20/24 10:00 BP 104/75 01/20/24 10:00 Pulse Ox 97 01/20/24 10:00 FiO2 Intake & Output 01/19/24 01/20/24 01/20/24 18:59 06:59 18:59 Intake Total 2554.714 2140.606 483.275 Output Total 2270 320 130 Balance 060.018 9795.606 353.275 Weight 72.575 kg 69.2 kg Intake: IV 1935 2110 470 D5-0.45% NaCl with KCl 525 20Meq/l 1,000 ml @ 150 mls/hr IV .Q6H40M [facility] Rx# :[id number] Dextrose 5% in Water 1, 1050 1650 450 000 ml @ 150 mls/hr IV . Q6H40M [facility] Rx#:[id number] Invasive Line 1 10 Invasive Line 2 30 30 10 Invasive Line 4 20 30 10 Potassium Chloride 10 meq 400 In Water For Injection 1 100ml.bag @ 100 mls/hr IVPB Q1HR [facility] Rx#: [id number] Sodium Chloride 0.9% 1, 300 000 ml @ 200 mls/hr IV . Q5H [facility] Rx#:[id number] Intake, IV Titration 79.714 30.606 13.275 Amount Insulin Regular 100 unit 79.714 30.606 13.275 In Sodium Chloride 0.9% 100 ml @ 0.1 UNITS/KG/HR 7.33 mls/hr IV .[id number] [facility] Rx#:[id number] Oral 540 Output: Urine 1670 320 130 Emesis 600 Other: Voiding Method Indwelling Catheter Indwelling Catheter Indwelling Catheter # Voids 1 # Bowel Movements 0 - Labs CBC & Chem 7: 01/20/24 05:59 01/20/24 05:59 Labs: Abnormal Lab Results - Last 24 Hours (Table) 01/19/24 01/19/24 01/19/24 Range/Units 08:36 11:02 11:26 WBC 26.3 H (3.8-10.6) k/uL RBC 4.14 L (4.30-5.90) m/uL Hgb 12.0 L (13.0-17.5) gm/dL Hct 38.5 L (39.0-53.0) % RDW 17.5 H (11.5-15.5) % Neutrophils # (1.3-7.7) k/uL Sodium (137-145) mmol/L Potassium (3.5-5.1) mmol/L Chloride (98-107) mmol/L Carbon Dioxide (22-30) mmol/L BUN (9-20) mg/dL Glucose (74-99) mg/dL POC Glucose (mg/dL) 119 H (70-110) mg/dL Plasma Lactic Acid Len 5.3 H* (0.7-2.0) mmol/L Calcium (8.4-10.2) mg/dL Phosphorus (2.5-4.5) mg/dL Magnesium (1.6-2.3) mg/dL Total Protein (6.3-8.2) g/dL Albumin (3.5-5.0) g/dL Urine Protein (Negative) Urine Glucose (UA) (Negative) Urine Ketones (Negative) Urine Blood (Negative) Urine Bilirubin (Negative) Amorphous Sediment (None) /hpf Urine Bacteria (None) /hpf Urine Mucus (None) /hpf 01/19/24 01/19/24 01/19/24 Range/Units 11:26 11:53 11:56 WBC (3.8-10.6) k/uL RBC (4.30-5.90) m/uL Hgb (13.0-17.5) gm/dL Hct (39.0-53.0) % RDW (11.5-15.5) % Neutrophils # (1.3-7.7) k/uL Sodium 153 H (137-145) mmol/L Potassium (3.5-5.1) mmol/L Chloride 117 H (98-107) mmol/L Carbon Dioxide 19 L (22-30) mmol/L BUN 24 H (9-20) mg/dL Glucose 137 H (74-99) mg/dL POC Glucose (mg/dL) 113 H (70-110) mg/dL Plasma Lactic Acid Len (0.7-2.0) mmol/L Calcium (8.4-10.2) mg/dL Phosphorus 2.0 L (2.5-4.5) mg/dL Magnesium 2.6 H (1.6-2.3) mg/dL Total Protein (6.3-8.2) g/dL Albumin (3.5-5.0) g/dL Urine Protein 1+ H (Negative) Urine Glucose (UA) 4+ H (Negative) Urine Ketones 4+ H (Negative) Urine Blood Trace H (Negative) Urine Bilirubin 1+ H (Negative) Amorphous Sediment Occasional H (None) /hpf Urine Bacteria Rare H (None) /hpf Urine Mucus Rare H (None) /hpf 01/19/24 01/19/24 01/19/24 Range/Units 13:02 14:06 15:39 WBC (3.8-10.6) k/uL RBC (4.30-5.90) m/uL Hgb (13.0-17.5) gm/dL Hct (39.0-53.0) % RDW (11.5-15.5) % Neutrophils # (1.3-7.7) k/uL Sodium (137-145) mmol/L Potassium (3.5-5.1) mmol/L Chloride (98-107) mmol/L Carbon Dioxide (22-30) mmol/L BUN (9-20) mg/dL Glucose (74-99) mg/dL POC Glucose (mg/dL) 161 H 211 H 248 H (70-110) mg/dL Plasma Lactic Acid Len (0.7-2.0) mmol/L Calcium (8.4-10.2) mg/dL Phosphorus (2.5-4.5) mg/dL Magnesium (1.6-2.3) mg/dL Total Protein (6.3-8.2) g/dL Albumin (3.5-5.0) g/dL Urine Protein (Negative) Urine Glucose (UA) (Negative) Urine Ketones (Negative) Urine Blood (Negative) Urine Bilirubin (Negative) Amorphous Sediment (None) /hpf Urine Bacteria (None) /hpf Urine Mucus (None) /hpf 01/19/24 01/19/24 01/19/24 Range/Units 16:05 16:26 17:03 WBC (3.8-10.6) k/uL RBC (4.30-5.90) m/uL Hgb (13.0-17.5) gm/dL Hct (39.0-53.0) % RDW (11.5-15.5) % Neutrophils # (1.3-7.7) k/uL Sodium 148 H (137-145) mmol/L Potassium (3.5-5.1) mmol/L Chloride 115 H (98-107) mmol/L Carbon Dioxide (22-30) mmol/L BUN 24 H (9-20) mg/dL Glucose 187 H (74-99) mg/dL POC Glucose (mg/dL) 192 H 170 H (70-110) mg/dL Plasma Lactic Acid Len (0.7-2.0) mmol/L Calcium (8.4-10.2) mg/dL Phosphorus (2.5-4.5) mg/dL Magnesium (1.6-2.3) mg/dL Total Protein (6.3-8.2) g/dL Albumin (3.5-5.0) g/dL Urine Protein (Negative) Urine Glucose (UA) (Negative) Urine Ketones (Negative) Urine Blood (Negative) Urine Bilirubin (Negative) Amorphous Sediment (None) /hpf Urine Bacteria (None) /hpf Urine Mucus (None) /hpf 08/01/19/24 01/19/24 Range/Units 18:17 18:53 20:07 WBC (3.8-10.6) k/uL RBC (4.30-5.90) m/uL Hgb (13.0-17.5) gm/dL Hct (39.0-53.0) % RDW (11.5-15.5) % Neutrophils # (1.3-7.7) k/uL Sodium 146 H (137-145) mmol/L Potassium (3.5-5.1) mmol/L Chloride 110 H (98-107) mmol/L Carbon Dioxide (22-30) mmol/L BUN 23 H (9-20) mg/dL Glucose 167 H (74-99) mg/dL POC Glucose (mg/dL) 171 H 174 H (70-110) mg/dL Plasma Lactic Acid Len (0.7-2.0) mmol/L Calcium (8.4-10.2) mg/dL Phosphorus (2.5-4.5) mg/dL Magnesium (1.6-2.3) mg/dL Total Protein (6.3-8.2) g/dL Albumin (3.5-5.0) g/dL Urine Protein (Negative) Urine Glucose (UA) (Negative) Urine Ketones (Negative) Urine Blood (Negative) Urine Bilirubin (Negative) Amorphous Sediment (None) /hpf Urine Bacteria (None) /hpf Urine Mucus (None) /hpf 01/19/24 01/19/24 01/19/24 Range/Units 20:17 21:20 22:08 WBC (3.8-10.6) k/uL RBC (4.30-5.90) m/uL Hgb (13.0-17.5) gm/dL Hct (39.0-53.0) % RDW (11.5-15.5) % Neutrophils # (1.3-7.7) k/uL Sodium (137-145) mmol/L Potassium (3.5-5.1) mmol/L Chloride (98-107) mmol/L Carbon Dioxide (22-30) mmol/L BUN (9-20) mg/dL Glucose (74-99) mg/dL POC Glucose (mg/dL) 157 H 153 H 133 H (70-110) mg/dL Plasma Lactic Acid Len (0.7-2.0) mmol/L Calcium (8.4-10.2) mg/dL Phosphorus (2.5-4.5) mg/dL Magnesium (1.6-2.3) mg/dL Total Protein (6.3-8.2) g/dL Albumin (3.5-5.0) g/dL Urine Protein (Negative) Urine Glucose (UA) (Negative) Urine Ketones (Negative) Urine Blood (Negative) Urine Bilirubin (Negative) Amorphous Sediment (None) /hpf Urine Bacteria (None) /hpf Urine Mucus (None) /hpf 01/19/24 01/20/24 01/20/24 Range/Units 23:05 00:00 00:13 WBC (3.8-10.6) k/uL RBC (4.30-5.90) m/uL Hgb (13.0-17.5) gm/dL Hct (39.0-53.0) % RDW (11.5-15.5) % Neutrophils # (1.3-7.7) k/uL Sodium (137-145) mmol/L Potassium 3.4 L (3.5-5.1) mmol/L Chloride 109 H (98-107) mmol/L Carbon Dioxide (22-30) mmol/L BUN 22 H (9-20) mg/dL Glucose 169 H (74-99) mg/dL POC Glucose (mg/dL) 154 H 149 H (70-110) mg/dL Plasma Lactic Acid Len (0.7-2.0) mmol/L Calcium 8.3 L (8.4-10.2) mg/dL Phosphorus (2.5-4.5) mg/dL Magnesium (1.6-2.3) mg/dL Total Protein (6.3-8.2) g/dL Albumin (3.5-5.0) g/dL Urine Protein (Negative) Urine Glucose (UA) (Negative) Urine Ketones (Negative) Urine Blood (Negative) Urine Bilirubin (Negative) Amorphous Sediment (None) /hpf Urine Bacteria (None) /hpf Urine Mucus (None) /hpf 01/20/24 01/20/24 01/20/24 Range/Units 01:24 02:24 04:13 WBC (3.8-10.6) k/uL RBC (4.30-5.90) m/uL Hgb (13.0-17.5) gm/dL Hct (39.0-53.0) % RDW (11.5-15.5) % Neutrophils # (1.3-7.7) k/uL Sodium (137-145) mmol/L Potassium (3.5-5.1) mmol/L Chloride (98-107) mmol/L Carbon Dioxide (22-30) mmol/L BUN (9-20) mg/dL Glucose (74-99) mg/dL POC Glucose (mg/dL) 154 H 179 H 194 H (70-110) mg/dL Plasma Lactic Acid Len (0.7-2.0) mmol/L Calcium (8.4-10.2) mg/dL Phosphorus (2.5-4.5) mg/dL Magnesium (1.6-2.3) mg/dL Total Protein (6.3-8.2) g/dL Albumin (3.5-5.0) g/dL Urine Protein (Negative) Urine Glucose (UA) (Negative) Urine Ketones (Negative) Urine Blood (Negative) Urine Bilirubin (Negative) Amorphous Sediment (None) /hpf Urine Bacteria (None) /hpf Urine Mucus (None) /hpf 01/20/24 01/20/24 01/20/24 Range/Units 05:14 05:59 05:59 WBC 15.5 H (3.8-10.6) k/uL RBC 3.76 L (4.30-5.90) m/uL Hgb 11.0 L (13.0-17.5) gm/dL Hct 34.2 L (39.0-53.0) % RDW 17.7 H (11.5-15.5) % Neutrophils # 12.8 H (1.3-7.7) k/uL Sodium (137-145) mmol/L Potassium (3.5-5.1) mmol/L Chloride (98-107) mmol/L Carbon Dioxide (22-30) mmol/L BUN (9-20) mg/dL Glucose 349 H (74-99) mg/dL POC Glucose (mg/dL) 294 H (70-110) mg/dL Plasma Lactic Acid Len (0.7-2.0) mmol/L Calcium 8.3 L (8.4-10.2) mg/dL Phosphorus (2.5-4.5) mg/dL Magnesium (1.6-2.3) mg/dL Total Protein 5.3 L (6.3-8.2) g/dL Albumin 3.1 L (3.5-5.0) g/dL Urine Protein (Negative) Urine Glucose (UA) (Negative) Urine Ketones (Negative) Urine Blood (Negative) Urine Bilirubin (Negative) Amorphous Sediment (None) /hpf Urine Bacteria (None) /hpf Urine Mucus (None) /hpf 01/20/24 01/20/24 01/20/24 Range/Units 06:13 06:58 08:01 WBC (3.8-10.6) k/uL RBC (4.30-5.90) m/uL Hgb (13.0-17.5) gm/dL Hct (39.0-53.0) % RDW (11.5-15.5) % Neutrophils # (1.3-7.7) k/uL Sodium (137-145) mmol/L Potassium (3.5-5.1) mmol/L Chloride (98-107) mmol/L Carbon Dioxide (22-30) mmol/L BUN (9-20) mg/dL Glucose (74-99) mg/dL POC Glucose (mg/dL) 321 H 249 H 195 H (70-110) mg/dL Plasma Lactic Acid Len (0.7-2.0) mmol/L Calcium (8.4-10.2) mg/dL Phosphorus (2.5-4.5) mg/dL Magnesium (1.6-2.3) mg/dL Total Protein (6.3-8.2) g/dL Albumin (3.5-5.0) g/dL Urine Protein (Negative) Urine Glucose (UA) (Negative) Urine Ketones (Negative) Urine Blood (Negative) Urine Bilirubin (Negative) Amorphous Sediment (None) /hpf Urine Bacteria (None) /hpf Urine Mucus (None) /hpf 01/20/24 01/20/24 Range/Units 09:03 10:23 WBC (3.8-10.6) k/uL RBC (4.30-5.90) m/uL Hgb (13.0-17.5) gm/dL Hct (39.0-53.0) % RDW (11.5-15.5) % Neutrophils # (1.3-7.7) k/uL Sodium (137-145) mmol/L Potassium (3.5-5.1) mmol/L Chloride (98-107) mmol/L Carbon Dioxide (22-30) mmol/L BUN (9-20) mg/dL Glucose (74-99) mg/dL POC Glucose (mg/dL) 166 H 139 H (70-110) mg/dL Plasma Lactic Acid Len (0.7-2.0) mmol/L Calcium (8.4-10.2) mg/dL Phosphorus (2.5-4.5) mg/dL Magnesium (1.6-2.3) mg/dL Total Protein (6.3-8.2) g/dL Albumin (3.5-5.0) g/dL Urine Protein (Negative) Urine Glucose (UA) (Negative) Urine Ketones (Negative) Urine Blood (Negative) Urine Bilirubin (Negative) Amorphous Sediment (None) /hpf Urine Bacteria (None) /hpf Urine Mucus (None) /hpf
--- NOTE | 2024-01-20 10:55 | P.PN ---
Subjective Progress Note Date: 01/20/24 Patient is a 28-year-old white male with history of type 1 diabetes melitis and medication noncompliance. He has had numerous hospital admissions for the same. He presented to emergency department late last night altered and unable to provide any information. Labs consistent with severe diabetic ketoacidosis. Blood glucose was elevated at 1251, serum bicarb less than 5, anion gap unmeasurable, acetone positive. VBG with a pCO2 of 17 and pH of 6.77. Patient was started on the DKA protocol. He is being evaluated in the emergency department. He is lethargic but arousable to verbal stimulation. Unable to provide any information. He is disheveled. Currently on insulin infusion at 7.2 units/h. Normal saline is infusing at 200 and mL per hour. He was initially hypotensive and severely tachycardic, and he has been fluid resuscitated with a total of 2.5 L crystalloid fluid. Not requiring any vasopressors. He was also noted to be hypothermic and as the external warming blanket on. Current, temperature measuring 34.4 C. Tachypneic with Kussmaul respirations. On 3 L/min nasal cannula. Chest x-ray does not show any acute infiltrates, note that the right costophrenic angle is excluded. Hyperkalemic on arrival with a potassium of 6.4. Peaked T waves on EKG. Has received 2 A of sodium bicarb, 1 g of calcium gluconate, and the treatment for his DKA. CBC demonstrates elevated WBC count, likely reactive DKA. No obvious infectious source identified. CMP: Sodium 137, potassium 6.4, chloride 87, serum bicarb less than 5, BUN 25, creatinine 2.36, glucose 1251. Lactic elevated at 7. Magnesium 2.7, phosphorus 14.9. LFTs unremarkable. Lipase 71. Troponin less than 0.012. NT proBNP 88. Serum alcohol level less than 10. Negative for influenza, RSV, COVID. Patient will be monitored in the intensive care unit. The patient is seen today January 20, 2024 and follow-up in the intensive care unit. He is currently awake and alert in no acute distress. He is maintaining good O2 saturations in the 90s on room air. He has been hemodynamically stable. He is continued on an insulin drip at 3 units/h. He is on D5W at 150 mL/h. White count 15.5. Hemoglobin 11.0. Platelets 365. Sodium 139. Potassium 3.5. Bicarb 24. Anion gap 8. BUN 19. Creatinine 0.90. Glucose 139. He will be transition to Levemir and Humalog sliding scale. Objective - Vital Signs Vital signs: Vital Signs Temp 98.0 F 01/20/24 08:00 Pulse 93 01/20/24 10:00 Resp 19 01/20/24 10:00 BP 104/75 01/20/24 10:00 Pulse Ox 97 01/20/24 10:00 FiO2 Intake & Output 01/19/24 01/20/24 01/20/24 18:59 06:59 18:59 Intake Total 2554.714 2140.606 483.275 Output Total 2270 320 130 Balance 920.376 0487.606 353.275 Weight 72.575 kg 69.2 kg Intake: IV 1935 2110 470 D5-0.45% NaCl with KCl 525 20Meq/l 1,000 ml @ 150 mls/hr IV .Q6H40M [facility] Rx# :[id number] Dextrose 5% in Water 1, 1050 1650 450 000 ml @ 150 mls/hr IV . Q6H40M [facility] Rx#:[id number] Invasive Line 1 10 Invasive Line 2 30 30 10 Invasive Line 4 20 30 10 Potassium Chloride 10 meq 400 In Water For Injection 1 100ml.bag @ 100 mls/hr IVPB Q1HR [facility] Rx#: [id number] Sodium Chloride 0.9% 1, 300 000 ml @ 200 mls/hr IV . Q5H [facility] Rx#:[id number] Intake, IV Titration 79.714 30.606 13.275 Amount Insulin Regular 100 unit 79.714 30.606 13.275 In Sodium Chloride 0.9% 100 ml @ 0.1 UNITS/KG/HR 7.33 mls/hr IV .[id number] [facility] Rx#:[id number] Oral 540 Output: Urine 1670 320 130 Emesis 600 Other: Voiding Method Indwelling Catheter Indwelling Catheter Indwelling Catheter # Voids 1 # Bowel Movements 0 - Exam GENERAL EXAM: Alert, pleasant, thin 28-year-old male, on room air, comfortable in no apparent distress. HEAD: Normocephalic. EYES: Normal reaction of pupils, equal size. NOSE: Clear with pink turbinates. THROAT: No erythema or exudates. NECK: No masses, no JVD. CHEST: No chest wall deformity. LUNGS: Equal air entry with no crackles, wheeze, rhonchi or dullness. CVS: S1 and S2 normal with no audible murmur, regular rhythm. ABDOMEN: No hepatosplenomegaly, normal bowel sounds, no guarding or rigidity. SPINE: No scoliosis or deformity SKIN: No rashes CENTRAL NERVOUS SYSTEM: No focal deficits, tone is normal in all 4 extremities. EXTREMITIES: There is no peripheral edema. No clubbing, no cyanosis. Peripheral pulses are intact. - Labs CBC & Chem 7: 01/20/24 05:59 01/20/24 05:59 Labs: Abnormal Lab Results - Last 24 Hours (Table) 01/19/24 01/19/24 01/19/24 Range/Units 08:36 11:02 11:26 WBC 26.3 H (3.8-10.6) k/uL RBC 4.14 L (4.30-5.90) m/uL Hgb 12.0 L (13.0-17.5) gm/dL Hct 38.5 L (39.0-53.0) % RDW 17.5 H (11.5-15.5) % Neutrophils # (1.3-7.7) k/uL Sodium (137-145) mmol/L Potassium (3.5-5.1) mmol/L Chloride (98-107) mmol/L Carbon Dioxide (22-30) mmol/L BUN (9-20) mg/dL Glucose (74-99) mg/dL POC Glucose (mg/dL) 119 H (70-110) mg/dL Plasma Lactic Acid Len 5.3 H* (0.7-2.0) mmol/L Calcium (8.4-10.2) mg/dL Phosphorus (2.5-4.5) mg/dL Magnesium (1.6-2.3) mg/dL Total Protein (6.3-8.2) g/dL Albumin (3.5-5.0) g/dL Urine Protein (Negative) Urine Glucose (UA) (Negative) Urine Ketones (Negative) Urine Blood (Negative) Urine Bilirubin (Negative) Amorphous Sediment (None) /hpf Urine Bacteria (None) /hpf Urine Mucus (None) /hpf 01/19/24 01/19/24 01/19/24 Range/Units 11:26 11:53 11:56 WBC (3.8-10.6) k/uL RBC (4.30-5.90) m/uL Hgb (13.0-17.5) gm/dL Hct (39.0-53.0) % RDW (11.5-15.5) % Neutrophils # (1.3-7.7) k/uL Sodium 153 H (137-145) mmol/L Potassium (3.5-5.1) mmol/L Chloride 117 H (98-107) mmol/L Carbon Dioxide 19 L (22-30) mmol/L BUN 24 H (9-20) mg/dL Glucose 137 H (74-99) mg/dL POC Glucose (mg/dL) 113 H (70-110) mg/dL Plasma Lactic Acid Len (0.7-2.0) mmol/L Calcium (8.4-10.2) mg/dL Phosphorus 2.0 L (2.5-4.5) mg/dL Magnesium 2.6 H (1.6-2.3) mg/dL Total Protein (6.3-8.2) g/dL Albumin (3.5-5.0) g/dL Urine Protein 1+ H (Negative) Urine Glucose (UA) 4+ H (Negative) Urine Ketones 4+ H (Negative) Urine Blood Trace H (Negative) Urine Bilirubin 1+ H (Negative) Amorphous Sediment Occasional H (None) /hpf Urine Bacteria Rare H (None) /hpf Urine Mucus Rare H (None) /hpf 01/19/24 01/19/24 01/19/24 Range/Units 13:02 14:06 15:39 WBC (3.8-10.6) k/uL RBC (4.30-5.90) m/uL Hgb (13.0-17.5) gm/dL Hct (39.0-53.0) % RDW (11.5-15.5) % Neutrophils # (1.3-7.7) k/uL Sodium (137-145) mmol/L Potassium (3.5-5.1) mmol/L Chloride (98-107) mmol/L Carbon Dioxide (22-30) mmol/L BUN (9-20) mg/dL Glucose (74-99) mg/dL POC Glucose (mg/dL) 161 H 211 H 248 H (70-110) mg/dL Plasma Lactic Acid Len (0.7-2.0) mmol/L Calcium (8.4-10.2) mg/dL Phosphorus (2.5-4.5) mg/dL Magnesium (1.6-2.3) mg/dL Total Protein (6.3-8.2) g/dL Albumin (3.5-5.0) g/dL Urine Protein (Negative) Urine Glucose (UA) (Negative) Urine Ketones (Negative) Urine Blood (Negative) Urine Bilirubin (Negative) Amorphous Sediment (None) /hpf Urine Bacteria (None) /hpf Urine Mucus (None) /hpf 01/19/24 01/19/24 01/19/24 Range/Units 16:05 16:26 17:03 WBC (3.8-10.6) k/uL RBC (4.30-5.90) m/uL Hgb (13.0-17.5) gm/dL Hct (39.0-53.0) % RDW (11.5-15.5) % Neutrophils # (1.3-7.7) k/uL Sodium 148 H (137-145) mmol/L Potassium (3.5-5.1) mmol/L Chloride 115 H (98-107) mmol/L Carbon Dioxide (22-30) mmol/L BUN 24 H (9-20) mg/dL Glucose 187 H (74-99) mg/dL POC Glucose (mg/dL) 192 H 170 H (70-110) mg/dL Plasma Lactic Acid Len (0.7-2.0) mmol/L Calcium (8.4-10.2) mg/dL Phosphorus (2.5-4.5) mg/dL Magnesium (1.6-2.3) mg/dL Total Protein (6.3-8.2) g/dL Albumin (3.5-5.0) g/dL Urine Protein (Negative) Urine Glucose (UA) (Negative) Urine Ketones (Negative) Urine Blood (Negative) Urine Bilirubin (Negative) Amorphous Sediment (None) /hpf Urine Bacteria (None) /hpf Urine Mucus (None) /hpf 01/19/24 01/19/24 01/19/24 Range/Units 18:17 18:53 20:07 WBC (3.8-10.6) k/uL RBC (4.30-5.90) m/uL Hgb (13.0-17.5) gm/dL Hct (39.0-53.0) % RDW (11.5-15.5) % Neutrophils # (1.3-7.7) k/uL Sodium 146 H (137-145) mmol/L Potassium (3.5-5.1) mmol/L Chloride 110 H (98-107) mmol/L Carbon Dioxide (22-30) mmol/L BUN 23 H (9-20) mg/dL Glucose 167 H (74-99) mg/dL POC Glucose (mg/dL) 171 H 174 H (70-110) mg/dL Plasma Lactic Acid Len (0.7-2.0) mmol/L Calcium (8.4-10.2) mg/dL Phosphorus (2.5-4.5) mg/dL Magnesium (1.6-2.3) mg/dL Total Protein (6.3-8.2) g/dL Albumin (3.5-5.0) g/dL Urine Protein (Negative) Urine Glucose (UA) (Negative) Urine Ketones (Negative) Urine Blood (Negative) Urine Bilirubin (Negative) Amorphous Sediment (None) /hpf Urine Bacteria (None) /hpf Urine Mucus (None) /hpf 01/19/24 01/19/24 01/19/24 Range/Units 20:17 21:20 22:08 WBC (3.8-10.6) k/uL RBC (4.30-5.90) m/uL Hgb (13.0-17.5) gm/dL Hct (39.0-53.0) % RDW (11.5-15.5) % Neutrophils # (1.3-7.7) k/uL Sodium (137-145) mmol/L Potassium (3.5-5.1) mmol/L Chloride (98-107) mmol/L Carbon Dioxide (22-30) mmol/L BUN (9-20) mg/dL Glucose (74-99) mg/dL POC Glucose (mg/dL) 157 H 153 H 133 H (70-110) mg/dL Plasma Lactic Acid Len (0.7-2.0) mmol/L Calcium (8.4-10.2) mg/dL Phosphorus (2.5-4.5) mg/dL Magnesium (1.6-2.3) mg/dL Total Protein (6.3-8.2) g/dL Albumin (3.5-5.0) g/dL Urine Protein (Negative) Urine Glucose (UA) (Negative) Urine Ketones (Negative) Urine Blood (Negative) Urine Bilirubin (Negative) Amorphous Sediment (None) /hpf Urine Bacteria (None) /hpf Urine Mucus (None) /hpf 01/19/24 01/20/24 01/20/24 Range/Units 23:05 00:00 00:13 WBC (3.8-10.6) k/uL RBC (4.30-5.90) m/uL Hgb (13.0-17.5) gm/dL Hct (39.0-53.0) % RDW (11.5-15.5) % Neutrophils # (1.3-7.7) k/uL Sodium (137-145) mmol/L Potassium 3.4 L (3.5-5.1) mmol/L Chloride 109 H (98-107) mmol/L Carbon Dioxide (22-30) mmol/L BUN 22 H (9-20) mg/dL Glucose 169 H (74-99) mg/dL POC Glucose (mg/dL) 154 H 149 H (70-110) mg/dL Plasma Lactic Acid Len (0.7-2.0) mmol/L Calcium 8.3 L (8.4-10.2) mg/dL Phosphorus (2.5-4.5) mg/dL Magnesium (1.6-2.3) mg/dL Total Protein (6.3-8.2) g/dL Albumin (3.5-5.0) g/dL Urine Protein (Negative) Urine Glucose (UA) (Negative) Urine Ketones (Negative) Urine Blood (Negative) Urine Bilirubin (Negative) Amorphous Sediment (None) /hpf Urine Bacteria (None) /hpf Urine Mucus (None) /hpf 01/20/24 01/20/24 01/20/24 Range/Units 01:24 02:24 04:13 WBC (3.8-10.6) k/uL RBC (4.30-5.90) m/uL Hgb (13.0-17.5) gm/dL Hct (39.0-53.0) % RDW (11.5-15.5) % Neutrophils # (1.3-7.7) k/uL Sodium (137-145) mmol/L Potassium (3.5-5.1) mmol/L Chloride (98-107) mmol/L Carbon Dioxide (22-30) mmol/L BUN (9-20) mg/dL Glucose (74-99) mg/dL POC Glucose (mg/dL) 154 H 179 H 194 H (70-110) mg/dL Plasma Lactic Acid Len (0.7-2.0) mmol/L Calcium (8.4-10.2) mg/dL Phosphorus (2.5-4.5) mg/dL Magnesium (1.6-2.3) mg/dL Total Protein (6.3-8.2) g/dL Albumin (3.5-5.0) g/dL Urine Protein (Negative) Urine Glucose (UA) (Negative) Urine Ketones (Negative) Urine Blood (Negative) Urine Bilirubin (Negative) Amorphous Sediment (None) /hpf Urine Bacteria (None) /hpf Urine Mucus (None) /hpf 01/20/24 01/20/24 01/20/24 Range/Units 05:14 05:59 05:59 WBC 15.5 H (3.8-10.6) k/uL RBC 3.76 L (4.30-5.90) m/uL Hgb 11.0 L (13.0-17.5) gm/dL Hct 34.2 L (39.0-53.0) % RDW 17.7 H (11.5-15.5) % Neutrophils # 12.8 H (1.3-7.7) k/uL Sodium (137-145) mmol/L Potassium (3.5-5.1) mmol/L Chloride (98-107) mmol/L Carbon Dioxide (22-30) mmol/L BUN (9-20) mg/dL Glucose 349 H (74-99) mg/dL POC Glucose (mg/dL) 294 H (70-110) mg/dL Plasma Lactic Acid Len (0.7-2.0) mmol/L Calcium 8.3 L (8.4-10.2) mg/dL Phosphorus (2.5-4.5) mg/dL Magnesium (1.6-2.3) mg/dL Total Protein 5.3 L (6.3-8.2) g/dL Albumin 3.1 L (3.5-5.0) g/dL Urine Protein (Negative) Urine Glucose (UA) (Negative) Urine Ketones (Negative) Urine Blood (Negative) Urine Bilirubin (Negative) Amorphous Sediment (None) /hpf Urine Bacteria (None) /hpf Urine Mucus (None) /hpf 01/20/24 01/20/24 01/20/24 Range/Units 06:13 06:58 08:01 WBC (3.8-10.6) k/uL RBC (4.30-5.90) m/uL Hgb (13.0-17.5) gm/dL Hct (39.0-53.0) % RDW (11.5-15.5) % Neutrophils # (1.3-7.7) k/uL Sodium (137-145) mmol/L Potassium (3.5-5.1) mmol/L Chloride (98-107) mmol/L Carbon Dioxide (22-30) mmol/L BUN (9-20) mg/dL Glucose (74-99) mg/dL POC Glucose (mg/dL) 321 H 249 H 195 H (70-110) mg/dL Plasma Lactic Acid Len (0.7-2.0) mmol/L Calcium (8.4-10.2) mg/dL Phosphorus (2.5-4.5) mg/dL Magnesium (1.6-2.3) mg/dL Total Protein (6.3-8.2) g/dL Albumin (3.5-5.0) g/dL Urine Protein (Negative) Urine Glucose (UA) (Negative) Urine Ketones (Negative) Urine Blood (Negative) Urine Bilirubin (Negative) Amorphous Sediment (None) /hpf Urine Bacteria (None) /hpf Urine Mucus (None) /hpf 01/20/24 01/20/24 Range/Units 09:03 10:23 WBC (3.8-10.6) k/uL RBC (4.30-5.90) m/uL Hgb (13.0-17.5) gm/dL Hct (39.0-53.0) % RDW (11.5-15.5) % Neutrophils # (1.3-7.7) k/uL Sodium (137-145) mmol/L Potassium (3.5-5.1) mmol/L Chloride (98-107) mmol/L Carbon Dioxide (22-30) mmol/L BUN (9-20) mg/dL Glucose (74-99) mg/dL POC Glucose (mg/dL) 166 H 139 H (70-110) mg/dL Plasma Lactic Acid Len (0.7-2.0) mmol/L Calcium (8.4-10.2) mg/dL Phosphorus (2.5-4.5) mg/dL Magnesium (1.6-2.3) mg/dL Total Protein (6.3-8.2) g/dL Albumin (3.5-5.0) g/dL Urine Protein (Negative) Urine Glucose (UA) (Negative) Urine Ketones (Negative) Urine Blood (Negative) Urine Bilirubin (Negative) Amorphous Sediment (None) /hpf Urine Bacteria (None) /hpf Urine Mucus (None) /hpf Assessment and Plan Assessment: Acute diabetic ketoacidosis, likely secondary to medication noncompliance. Patient has had numerous hospital admissions for DKA. Severe anion gap metabolic acidosis, secondary to above and lactic acidosis Severe hyperkalemia Hyperphosphatemia Severe dehydration Acute kidney injury, secondary to above Acute leukocytosis, likely reactive to DKA Type 1 diabetes mellitus, with poor medication compliance Diabetic neuropathy History of major depression Plan: The patient was seen and evaluated Labs and medications reviewed To be transitioned to Levemir and NovoLog sliding scale Could be transferred out of the ICU today Again educated regarding the importance of medication compliance I have personally seen and examined the patient, performed the documentation and the assessment and plan as written. Number of minutes spent on the visit: 10.
[2024-01-20 11:54] LABS: Glucose,Whole Blood 243 mg/dL (70-110)
[2024-01-20] MEDS ORDERED: DEXTROSE 50% SYRINGE 50 ML IVP PRN ×2 (13:00)
[2024-01-20] MEDS: INSULIN ASPART (NovoLOG) 100 UNIT/ML VIAL SQ SCH ×2 (13:26→17:07)
[2024-01-20] MEDS: INSULIN DETEMIR (LEVEMIR) 100 UNIT/ML SYR SQ SCH (13:26)
--- NOTE | 2024-01-20 14:11 | P.CN ---
Psychiatric Consult - . Consult date: 01/20/24 Consult:: 01/20/24 14:10 Engineering Director reviewed the chart and called ICU floors to speak with the RN about patients case and condition. Patient is admitted for DKA/hyperglycemia and currently being treated for this in the ICU. Patient has a long history of chronic depression, personality disorder, noncompliance with treatment and also medical treatment for his type 1 diabetes. Engineering Director has seen patient several times in the past and offered psychiatric services and treatment patient has refused care and also refused [facility] follow-up. nurse did not mention that patient atempted suicide or having SI. Please contact or consult psychiatry if patient has a significant worsening of mental health condition and/or suicidal thoughts or attempt. Thank you
[2024-01-20 16:33] LABS: Glucose,Whole Blood 231 mg/dL (70-110)
[2024-01-20 19:45] LABS: Glucose,Whole Blood 174 mg/dL (70-110)
[2024-01-20] MEDS: POTASSIUM BICARBONATE/CIT AC 20 MEQ TABLET.EFF NG-TUBE SCH (20:09)
[2024-01-21 06:58] LABS: Glucose,Whole Blood 211 mg/dL (70-110)
[2024-01-21 09:10] VITALS: RESP 16
[2024-01-21 11:34] LABS: Glucose,Whole Blood 161 mg/dL (70-110)
--- NOTE | 2024-01-21 12:59 | P.PN ---
Subjective Progress Note Date: 01/21/24 CHIEF COMPLAINT: DKA HISTORY OF PRESENT ILLNESS: Patient's DKA has improved. Patient transferred out of the ICU today to regular medical floor. Patient is tolerating diet. He has had no further vomiting. No coffee-ground emesis. And is currently on carb consistent diet. Denies any abdominal pain. PHYSICAL EXAM: VITAL SIGNS: Reviewed. GENERAL: no acute distress. ABDOMEN: Soft. Nondistended. Nontender. NEUROLOGIC: Alert and oriented. Cranial nerves II through XII grossly intact. ASSESSMENT: 1. Coffee-ground emesis with history of gastritis. Now resolved PLAN: -Patient's symptoms have resolved. He is tolerating diet. EGD for tomorrow has been canceled. -Continue PPI -Continue consistent carbohydrate diet -Patient can be discharged from surgical standpoint when medically cleared Physician Net Lead Architect note has been reviewed by physician. Signing provider agrees with the documented findings, assessment, and plan of care. Objective - Vital Signs Vital signs: Vital Signs Temp 97.8 F 01/21/24 08:56 Pulse 83 01/21/24 02:00 Resp 16 01/21/24 08:56 BP 158/106 01/21/24 08:56 Pulse Ox 100 01/21/24 08:56 FiO2 21 01/20/24 12:47 Intake & Output 01/20/24 01/21/24 01/21/24 18:59 06:59 18:59 Intake Total 5906.848 5357 480 Output Total 630 3450 Balance 1053.275 -2370 480 Intake: IV 1070 Dextrose 5% in Water 1, 1050 000 ml @ 150 mls/hr IV . Q6H40M [facility] Rx#:[id number] Invasive Line 2 10 Invasive Line 4 10 Intake, IV Titration 13.275 Amount Insulin Regular 100 unit 13.275 In Sodium Chloride 0.9% 100 ml @ 0.1 UNITS/KG/HR 7.33 mls/hr IV .[id number] [facility] Rx#:[id number] Oral 600 1080 480 Output: Urine 630 3450 Other: Voiding Method Indwelling Catheter Urinal # Bowel Movements 1 - Labs CBC & Chem 7: 01/20/24 05:59 01/20/24 17:40 Labs: Abnormal Lab Results - Last 24 Hours (Table) 01/20/24 01/20/24 01/21/24 Range/Units 16:32 19:43 06:57 POC Glucose (mg/dL) 231 H 174 H 211 H (70-110) mg/dL 01/21/24 Range/Units 11:33 POC Glucose (mg/dL) 161 H (70-110) mg/dL
[2024-01-21 17:27] LABS: Glucose,Whole Blood 146 mg/dL (70-110)
[2024-01-21 20:11] LABS: Glucose,Whole Blood 146 mg/dL (70-110)
[2024-01-21 23:37] LABS: Glucose,Whole Blood 124 mg/dL (70-110)
[2024-01-22 03:09] LABS: Glucose,Whole Blood 106 mg/dL (70-110)
[2024-01-22 07:12] LABS: Glucose,Whole Blood 166 mg/dL (70-110)
[2024-01-22 12:07] LABS: Glucose,Whole Blood 207 mg/dL (70-110)
[2024-01-22] MEDS: LOSARTAN 50 MG TAB PO SCH (12:17)
[2024-01-22 12:48] VITALS: BP 154/107; PULSE 69; TEMP 97.7
--- NOTE | 2024-01-22 17:06 | P.PN ---
Subjective Progress Note Date: 01/22/24 CHIEF COMPLAINT: DKA HISTORY OF PRESENT ILLNESS: Patient's DKA has improved. patient tolerating diet. Denies any nausea or vomiting. Denies any signs of bleeding. Afebrile. Hemoglobin has beenstable. PHYSICAL EXAM: VITAL SIGNS: Reviewed. GENERAL: no acute distress. ABDOMEN: Soft. Nondistended. Nontender. NEUROLOGIC: Alert and oriented. Cranial nerves II through XII grossly intact. ASSESSMENT: 1. Coffee-ground emesis with history of gastritis. Now resolved PLAN: -no plans for EGD -Patient can be discharged from surgical standpoint Physician Tarp Repairer note has been reviewed by physician. Signing provider agrees with the documented findings, assessment, and plan of care. Objective - Vital Signs Vital signs: Vital Signs Temp 97.7 F 01/22/24 12:47 Pulse 69 01/22/24 12:47 Resp 16 01/22/24 12:47 BP 154/107 01/22/24 12:47 Pulse Ox 100 01/22/24 12:47 FiO2 21 01/20/24 12:47 Intake & Output 01/21/24 01/22/24 01/22/24 18:59 06:59 18:59 Intake Total 3060 222 480 Balance 3060 222 480 Intake: Oral 3060 222 480 Other: # Voids 4 1 - Labs CBC & Chem 7: 01/20/24 05:59 01/20/24 17:40 Labs: Abnormal Lab Results - Last 24 Hours (Table) 01/21/24 01/21/24 01/22/24 Range/Units 17:25 20:09 07:11 POC Glucose (mg/dL) 146 H 146 H 166 H (70-110) mg/dL 01/22/24 Range/Units 12:05 POC Glucose (mg/dL) 207 H (70-110) mg/dL
--- NOTE | 2024-01-27 12:37 | DS ---
DISCHARGE SUMMARY CHIEF COMPLAINT: Diabetic ketoacidosis. HISTORY OF PRESENT ILLNESS AND PHYSICAL EXAMINATION: Details of this man's history and physical can be found in the initial workup. LABORATORY STUDIES: While he is in the hospital, he had laboratory studies, details of which can be found in the laboratory section of his chart. COURSE IN THE HOSPITAL: After admission, he was placed on bedrest, started on intravenous fluids and was placed in ICU. He was extremely dehydrated. He was rehydrated intravenously once his gap was closed. He was placed back on his basal bolus program and sent to a regular floor. I confronted him once again asking him why he kept having trouble and was coming in every 2 to 3 days with DKA. He stated, "I just sometimes forget to take my insulin." He was told that this is not the case and that this is going to lead to certain serious complications or even . He was asked if he was depressed and was trying to kill himself, and he denied this. His behavior is bizarre and suggests severe deep depression. He is apparently going on Facebook and telling everybody that he has "a cerebrospinal fluid leak." He was seen by Psychiatry again this time who has nothing to offer the patient because he will not comply. He will go home on his usual activity, diet, and he was encouraged to take medications as prescribed. FINAL DIAGNOSES: 1. Diabetic ketoacidosis. 2. Severe dehydration. 3. Major depression. 4. Labile hypertension. 5. Gastroparesis. 6. Peripheral neuropathy. MMODL / TRAMN: [id number] /
--- NOTE | 2024-01-28 15:06 | PN ---
PROGRESS NOTE DATE OF SERVICE: 01/21/2024 CHIEF COMPLAINT: DKA. HISTORY OF PRESENT ILLNESS: This gentleman is improved. He is awake and alert. Blood sugars are down in the normal range. He was asked why he keeps performing these behaviors. He states that he "forgets to take his insulin." He was told that this is not an adequate explanation. He was active. He is asked if he was depressed and he indicated that he was. I asked him if he wanted to and this is why he was exercising this behavior and he said "no." He has been seen by Psychiatry who has nothing further to offer since he has never been compliant. MMODL / IJN: [id number] /
--- NOTE | 2024-02-10 10:16 | CDI ---
Documentation Clarification Form Date: 02/10/24 From: Navya Beach Phone: Admit Date: 01/19/2024 12:24:00 AM Patient Name: Raul Marquez Visit Number: [id number] Discharge Date: 01/22/2024 01:36:00 PM ATTENTION: The Clinical Documentation Specialists (CDI) and [facility] Coding Staff appreciate your assistance in clarifying documentation. Please respond to the clarification below the line at the bottom and electronically sign. The CDI & [facility] Coding staff will review the response and follow-up if needed. Please note: Queries are made part of the Legal Health Record. If you have any questions, please contact the author of this message via ITS. Doctor/Provider: Brown Valenzuela GI bleed is documented on 01/18 Consult note. Additional clarification regarding the etiology of the GI bleed is requested. History/risk factors: HTN, DM1, Gastroparesis, Neuropathy, Depression, Personality disorder Clinical Indicators: Patient admitted 01/18 for DKA, SHANTEL, Dehydration. Patient is documented on 01/18 consult as having Coffee-ground emeis with history of gastritis. Radiology: none EGD/colonoscopy performed and findings: Last EGD October 2022 showed gastritis Labs: 01/18 Glucose 1251, HCT 38.5, HGB 12.0 Treatment: DKA protocol, normal saline 200 mL/hour, 2.5 L crystalloid resuscitation Medication: IV Protonix Consults: Pulmonology, Surgery, Psychiatric Please clarify the etiology of the GI bleed, if known: [ ] GIB due to Gastritis [ ] GIB due to Gastroparesis [ ] GIB, etiology unknown [ ] Other, please specify [ ] Unable to determine MTDD
--- NOTE | 2024-03-12 14:13 | XR ---
EXAM: XR Chest, 1 View CLINICAL HISTORY: HYPERGLYCEMIA HX OF NON-COMPLIANCE WITH INSULIN TECHNIQUE: Frontal view of the chest. COMPARISON: 12/25/2023. FINDINGS: Lungs:Unremarkable. No consolidative changes. Pleural space:Unremarkable. No pneumothorax. No pleural effusions. Heart:Heart is normal in size. No cardiomegaly. Mediastinum:Unremarkable. Normal mediastinal contour. Bones/joints:Osseous structures and soft tissues are unremarkable. No acute fracture. IMPRESSION: 1. No consolidative changes. 2. No pleural effusions. Radiologist: Ángel Em MD Electronically Signed: 01/19/24 00:26 Study first marked ready to read at 23:29, study last marked ready to read at 23:29, initial results transmitted at 00:26 [facility]
--- NOTE | 2024-04-08 04:45 | MISC ---
MISCELLANOUS REPORT Etiology of GI bleed, unable to determine. I am trying to scroll through these notes, we will confirm more of your queries. MMODL / IJN: [id number] /
== END 2024-01-22 13:36 | disposition home or self-care (01) | DRG 420 ==
LOC: EC 22:19 → 2SICU 01-19 00:24 → 5NMEDONC 01-21 09:06
PROVIDERS: ADMIT Family Medicine; ATTEND Family Medicine
DX: E10.10 Type 1 diabetes mellitus with ketoacidosis without coma (principal); K92.0 Hematemesis; N17.9 Acute kidney failure, unspecified; E83.39 Other disorders of phosphorus metabolism; E10.43 Type 1 diabetes mellitus with diabetic autonomic (poly)neuropathy; E10.42 Type 1 diabetes mellitus with diabetic polyneuropathy; I95.9 Hypotension, unspecified; R68.0 Hypothermia, not associated with low environmental temperature; E87.5 Hyperkalemia; K29.70 Gastritis, unspecified, without bleeding; E86.0 Dehydration; F32.9 Major depressive disorder, single episode, unspecified; F60.9 Personality disorder, unspecified; I10 Essential (primary) hypertension; K31.84 Gastroparesis; F41.9 Anxiety disorder, unspecified; F17.210 Nicotine dependence, cigarettes, uncomplicated; F17.290 Nicotine dependence, other tobacco product, uncomplicated; Z91.148 Patient's other noncompliance with medication regimen for other reason; Z91.199 Patient's noncompliance with other medical treatment and regimen due to unspecified reason
CPT/HCPCS: 36415; 51702; 71045; 80048; 80051; 80053; 80320; 81001; 82009; 82140; 82550; 82565; 82803; 82947; 83605; 83690; 83735; 83880; 84100; 84132; 84484; 84520; 85025; 85027; 85610; 85730; 87636; 93005; 94760; 96361; 96365; 96366; 96375; 99291

== ENCOUNTER 2024-01-29 18:42 | Inpatient (IN) | payer OTHER ==
[2024-01-29 18:48] LABS: Glucose,Whole Blood >600 mg/dL (70-110)
[2024-01-29] MEDS: SODIUM CHLORIDE 0.9% 2,000 ML IV ONE (18:54)
[2024-01-29 19:15] LABS: Prothrombin Time 10.6 sec (10.0-12.5)
[2024-01-29 19:17] LABS: Anisocytosis Slight; Basophils # (A) 0.1 k/uL (0-0.2); Basophils % (A) 1 %; Eosinophils % (A) 0 %; HCT 43.1 % (39.0-53.0); HGB 12.6 gm/dL (13.0-17.5); Hypochromasia Marked; Lymphocytes # (A) 2.2 k/uL (1.0-4.8); Lymphocytes % (A) 12 %; MCH 29.2 pg (25.0-35.0); MCHC 29.2 g/dL (31.0-37.0); MCV 100.2 fL (80.0-100.0); Macrocytosis Slight; Mean Platelet Volume 8.6; Monocytes # (A) 0.6 k/uL (0-1.0); Monocytes % (A) 3 %; Neutrophils % (A) 83 %; Platelet Count 578 k/uL (150-450); RDW 16.6 % (11.5-15.5)
[2024-01-29 19:42] LABS: ALT 38 U/L (4-49); AST 26 U/L (17-59); African American GFR (CKD) 64 (>60 ml/min/1.73 sqM); Albumin 4.7 g/dL (3.5-5.0); Alcohol <10 mg/dL; Alkaline Phosphatase 132 U/L (38-126); Blood Urea Nitrogen 35 mg/dL (9-20); Calcium 9.5 mg/dL (8.4-10.2); Chloride 87 mmol/L (98-107); Non-African American GFR(CKD) 55 (>60 ml/min/1.73 sqM); Potassium 5.6 mmol/L (3.5-5.1); Sodium 132 mmol/L (137-145); Total Bilirubin 0.6 mg/dL (0.2-1.3); Total Protein 6.7 g/dL (6.3-8.2)
--- NOTE | 2024-01-29 19:43 | ED ---
Nausea/Vomiting/Diarrhea HPI - General Chief complaint: Nausea/Vomiting/Diarrhea Stated complaint: Vomiting Time Seen by Provider: 01/29/24 18:45 Source: EMS Mode of arrival: EMS - History of Present Illness Initial comments: 28-year-old male with past medical history of diabetes presents emergency department with nausea, vomiting and high blood sugars. Patient is well-known to the emergency department. Patient states he last took his insulin yesterday morning. Unable to provide a reason as to why he and his insulin. He presents with emesis dried to his face. HPI is limited due to the patient's current condition - Related Data Home Medications Medication Instructions Recorded Confirmed Ergocalciferol [Vitamin D2 (1250 1,250 mcg PO Q30D 04/29/23 01/19/24 Mcg = 09525 Iu)] Famotidine [Pepcid] 20 mg PO BID 04/29/23 01/19/24 Gabapentin 600 mg PO TID 04/29/23 01/19/24 Mirtazapine 7.5 mg PO HS 04/29/23 01/19/24 Insulin Lispro 7 units SQ AC-TID 09/17/23 01/19/24 Ferrous Sulfate [Iron (65 MG 325 mg PO DAILY 10/09/23 01/19/24 Elemental)] Omeprazole 20 mg PO BID 10/30/23 01/19/24 Acetaminophen Tab [Tylenol] 500 - 1,000 mg PO Q6H PRN 12/19/23 01/19/24 Insulin Glargine,Hum.rec.anlog 30 units SQ DAILY@0700 12/26/23 01/19/24 [Lantus Solostar Pen] Losartan [Cozaar] 50 mg PO DAILY 01/19/24 01/19/24 Previous Rx's Medication Instructions Recorded Atorvastatin [Lipitor] 20 mg PO HS #30 tab 09/26/23 Metoclopramide [Reglan] 10 mg PO TID PRN #15 tab 11/01/23 Allergies Allergy/AdvReac Type Severity Reaction Status Date / Time No Known Allergies Allergy Verified 01/29/24 18:51 Review of Systems ROS Statement: Those systems with pertinent positive or pertinent negative responses have been documented in the HPI. ROS Other: All systems not noted in ROS Statement are negative. Past Medical History Past Medical History: Asthma, Diabetes Mellitus, Neurologic Disorder, Skin Disorder Additional Past Medical History / Comment(s): IDDM type I, neuropathy bilateral feet, DKA, eczema. History of Any Multi-Drug Resistant Organisms: None Reported Past Surgical History: Adenoidectomy Additional Past Surgical History / Comment(s): gastritis Past Anesthesia/Blood Transfusion Reactions: No Reported Reaction Past Psychological History: Anxiety, Depression Smoking Status: Former smoker Past Alcohol Use History: None Reported Past Drug Use History: None Reported - Past Family History Mother Family Medical History: CVA/TIA Additional Family Medical History / Comment(s): TIA Father Family Medical History: Hyperlipidemia, Hypertension Additional Family Medical History / Comment(s): . General Exam Limitations: altered mental status General appearance: lethargic Head exam: Present: atraumatic, normocephalic, normal inspection ENT exam: Present: mucous membranes dry Respiratory exam: Present: normal lung sounds bilaterally. Absent: respiratory distress, wheezes, rales, rhonchi, stridor Cardiovascular Exam: Present: normal rhythm, tachycardia GI/Abdominal exam: Present: soft, normal bowel sounds. Absent: distended, tenderness, guarding, rebound, rigid Neurological exam: Present: altered Psychiatric exam: Present: flat affect Skin exam: Present: pallor Course Vital Signs 01/29/24 01/29/24 01/29/24 18:44 18:51 19:30 Temperature 96.6 F L Pulse Rate 129 H 126 H Respiratory 22 17 Rate Blood Pressure 92/61 94/44 O2 Sat by Pulse 99 99 Oximetry 01/29/24 01/29/24 01/29/24 20:00 20:30 21:00 Temperature Pulse Rate 129 H 140 H 128 H Respiratory 24 12 17 Rate Blood Pressure 112/62 119/71 102/58 O2 Sat by Pulse 98 98 98 Oximetry 01/29/24 22:00 Temperature Pulse Rate 120 H Respiratory 18 Rate Blood Pressure 95/66 O2 Sat by Pulse 97 Oximetry Medical Decision Making - Medical Decision Making Was pt. sent in by a medical professional or institution (, PA, [employer]BULETTE DRIVER, urgent care, hospital, or fpc...) When possible be specific @ -No Did you speak to anyone other than the patient for history (EMS, parent, family, police, friend...)? What history was obtained from this source @ -Spoke with EMS for history Did you review nursing and triage notes (agree or disagree)? Why? @ -I reviewed and agree with nursing and triage notes Were old charts reviewed (outside hosp., previous admission, EMS record, old EKG, old radiological studies, urgent care reports/EKG's, fpc records)? Report findings @ -No old charts were reviewed Differential Diagnosis (chest pain, altered mental status, abdominal pain women, abdominal pain men, vaginal bleeding, weakness, fever, dyspnea, syncope, headache, dizziness, GI bleed, back pain, seizure, CVA, palpatations, mental health, musculoskeletal)? @ -Not applicable EKG interpreted by me (3pts min.). @ -yes and demonstrates sinus tachycardia with a rate of 127. NC interval 172. QRS 101. QTc of 393. No acute ST segment elevations or depressions X-rays interpreted by me (1pt min.). @ -None done CT interpreted by me (1pt min.). @ -None done U/S interpreted by me (1pt. min.). @ -None done What testing was considered but not performed or refused? (CT, X-rays, U/S, labs)? Why? @ -None What meds were considered but not given or refused? Why? @ -None Did you discuss the management of the patient with other professionals (pr ofessionals i.e. , PA, AMBULETTE DRIVER, lab, RT, psych nurse, social services manager, accounting auditor, teacher, juvenile corrections officer, case hardener)? Give summary @ yes, with Dr. Valenzuela who will admit the patient and with Dr. Brantley who accept the patient into the ICU Was smoking cessation discussed for >3mins.? @ -No Was critical care preformed (if so, how long)? @ -40 minutes for DKA management Were there social determinants of health that impacted care today? How? (Homelessness, low income, unemployed, alcoholism, drug addiction, transportation, low edu. Level, literacy, decrease access to med. care, custodial, rehab)? @ -Homelessness Was there de-escalation of care discussed even if they declined (Discuss DNR or withdrawal of care, Hospice)? DNR status @ -No What co-morbidities impacted this encounter? (DM, HTN, Smoking, COPD, CAD, Cancer, CVA, ARF, Chemo, Hep., AIDS, mental health diagnosis, sleep apnea, morbid obesity)? @ -Type 1 diabetes Was patient admitted / discharged? Hospital course, mention meds given and route, prescriptions, significant lab abnormalities, going to OR and other pertinent info. @ -Upon arrival patient seen and evaluated in trauma 2. Thorough history and physical exam was performed. IV access had been established by EMS. He was given 2 L of normal saline. Laboratory studies are conducted. Patient is given Reglan and Benadryl for nausea. Blood glucose is extremely elevated. He is initiated on insulin drip as he does meet criteria for DKA. Patient requires admission. Spoke with Dr. Valenzuela who agreed to admission as well as Dr. Mancia who agreed to take the patient to the ICU Undiagnosed new problem with uncertain prognosis? @ -No Drug Therapy requiring intensive monitoring for toxicity (Heparin, Nitro, Insulin, Cardizem)? @ -No Were any procedures done? @ -No Diagnosis/symptom? @ -Acute DKA, acute nausea vomiting Acute, or Chronic, or Acute on Chronic? @ -Acute Uncomplicated (without systemic symptoms) or Complicated (systemic symptoms)? @ -complicated Side effects of treatment? @ -No Exacerbation, Progression, or Severe Exacerbation? @ -No Poses a threat to life or bodily function? How? (Chest pain, [place], [place], pneumonia, PE, COPD, DKA, ARF, appy, cholecystitis, CVA, Diverticulitis, Homicidal, Suicidal, threat to staff... and all critical care pts) @ -yes - Lab Data Result diagrams: 01/29/24 18:58 01/29/24 20:13 Lab Results 01/29/24 01/29/24 01/29/24 Range/Units 18:45 18:58 18:58 WBC 18.0 H (3.8-10.6) k/uL RBC 4.30 (4.30-5.90) m/uL Hgb 12.6 L (13.0-17.5) gm/dL Hct 43.1 (39.0-53.0) % MCV 100.2 H D (80.0-100.0) fL MCH 29.2 (25.0-35.0) pg MCHC 29.2 L (31.0-37.0) g/dL RDW 16.6 H (11.5-15.5) % Plt Count 578 H (150-450) k/uL MPV 8.6 Neutrophils % 83 % Lymphocytes % 12 % Monocytes % 3 % Eosinophils % 0 % Basophils % 1 % Neutrophils # 15.0 H (1.3-7.7) k/uL Lymphocytes # 2.2 (1.0-4.8) k/uL Monocytes # 0.6 (0-1.0) k/uL Eosinophils # 0.0 (0-0.7) k/uL Basophils # 0.1 (0-0.2) k/uL Hypochromasia Marked Anisocytosis Slight Macrocytosis Slight PT 10.6 (10.0-12.5) sec INR 1.0 (<1.2) Sodium (137-145) mmol/L Potassium (3.5-5.1) mmol/L Chloride (98-107) mmol/L Carbon Dioxide (22-30) mmol/L Anion Gap BUN (9-20) mg/dL Creatinine (0.66-1.25) mg/dL Est GFR (CKD-EPI)AfAm (>60 ml/min/1.73 sqM) Est GFR (CKD-EPI)NonAf (>60 ml/min/1.73 sqM) Glucose (74-99) mg/dL POC Glucose (mg/dL) >600 H* (70-110) mg/dL POC Glu Spinner Fixer ID August Calcium (8.4-10.2) mg/dL Phosphorus (2.5-4.5) mg/dL Total Bilirubin (0.2-1.3) mg/dL AST (17-59) U/L ALT (4-49) U/L Alkaline Phosphatase (38-126) U/L Total Protein (6.3-8.2) g/dL Albumin (3.5-5.0) g/dL Urine Color Urine Appearance (Clear) Urine pH (5.0-8.0) Ur Specific [place] (1.001-1.035) Urine Protein (Negative) Urine Glucose (UA) (Negative) Urine Ketones (Negative) Urine Blood (Negative) Urine Nitrite (Negative) Urine Bilirubin (Negative) Urine Urobilinogen (<2.0) mg/dL Ur Leukocyte Esterase (Negative) Urine Opiates Screen (NotDetected) Ur Oxycodone Screen (NotDetected) Urine Methadone Screen (NotDetected) Ur Barbiturates Screen (NotDetected) U Tricyclic Antidepress (NotDetected) Ur Phencyclidine Scrn (NotDetected) Ur Amphetamines Screen (NotDetected) U Methamphetamines Scrn (NotDetected) U Benzodiazepines Scrn (NotDetected) Urine Cocaine Screen (NotDetected) U Marijuana (THC) Screen (NotDetected) Serum Alcohol mg/dL 01/29/24 01/29/24 01/29/24 Range/Units 18:58 18:58 18:58 WBC (3.8-10.6) k/uL RBC (4.30-5.90) m/uL Hgb (13.0-17.5) gm/dL Hct (39.0-53.0) % MCV (80.0-100.0) fL MCH (25.0-35.0) pg MCHC (31.0-37.0) g/dL RDW (11.5-15.5) % Plt Count (150-450) k/uL MPV Neutrophils % % Lymphocytes % % Monocytes % % Eosinophils % % Basophils % % Neutrophils # (1.3-7.7) k/uL Lymphocytes # (1.0-4.8) k/uL Monocytes # (0-1.0) k/uL Eosinophils # (0-0.7) k/uL Basophils # (0-0.2) k/uL Hypochromasia Anisocytosis Macrocytosis PT (10.0-12.5) sec INR (<1.2) Sodium 132 L (137-145) mmol/L Potassium 5.6 H (3.5-5.1) mmol/L Chloride 87 L (98-107) mmol/L Carbon Dioxide <5 L* (22-30) mmol/L Anion Gap [employer]IVER BUN 35 H (9-20) mg/dL Creatinine 1.68 H (0.66-1.25) mg/dL Est GFR (CKD-EPI)AfAm 64 (>60 ml/min/1.73 sqM) Est GFR (CKD-EPI)NonAf 55 (>60 ml/min/1.73 sqM) Glucose 929 H* (74-99) mg/dL POC Glucose (mg/dL) (70-110) mg/dL POC Glu Spinner Fixer ID Calcium 9.5 (8.4-10.2) mg/dL Phosphorus (2.5-4.5) mg/dL Total Bilirubin 0.6 (0.2-1.3) mg/dL AST 26 (17-59) U/L ALT 38 (4-49) U/L Alkaline Phosphatase 132 H (38-126) U/L Total Protein 6.7 (6.3-8.2) g/dL Albumin 4.7 (3.5-5.0) g/dL Urine Color Colorless Urine Appearance Clear (Clear) Urine pH 5.0 (5.0-8.0) Ur Specific [place] 1.020 (1.001-1.035) Urine Protein Negative (Negative) Urine Glucose (UA) 4+ H (Negative) Urine Ketones 4+ H (Negative) Urine Blood Negative (Negative) Urine Nitrite Negative (Negative) Urine Bilirubin Negative (Negative) Urine Urobilinogen <2.0 (<2.0) mg/dL Ur Leukocyte Esterase Negative (Negative) Urine Opiates Screen Not Detected (NotDetected) Ur Oxycodone Screen Not Detected (NotDetected) Urine Methadone Screen Not Detected (NotDetected) Ur Barbiturates Screen Not Detected (NotDetected) U Tricyclic Antidepress Not Detected (NotDetected) Ur Phencyclidine Scrn Not Detected (NotDetected) Ur Amphetamines Screen Not Detected (NotDetected) U Methamphetamines Scrn Not Detected (NotDetected) U Benzodiazepines Scrn Not Detected (NotDetected) Urine Cocaine Screen Not Detected (NotDetected) U Marijuana (THC) Screen Not Detected (NotDetected) Serum Alcohol <10 mg/dL 01/29/24 01/29/24 01/29/24 Range/Units 19:51 20:13 20:13 WBC (3.8-10.6) k/uL RBC (4.30-5.90) m/uL Hgb (13.0-17.5) gm/dL Hct (39.0-53.0) % MCV (80.0-100.0) fL MCH (25.0-35.0) pg MCHC (31.0-37.0) g/dL RDW (11.5-15.5) % Plt Count (150-450) k/uL MPV Neutrophils % % Lymphocytes % % Monocytes % % Eosinophils % % Basophils % % Neutrophils # (1.3-7.7) k/uL Lymphocytes # (1.0-4.8) k/uL Monocytes # (0-1.0) k/uL Eosinophils # (0-0.7) k/uL Basophils # (0-0.2) k/uL Hypochromasia Anisocytosis Macrocytosis PT (10.0-12.5) sec INR (<1.2) Sodium 136 L (137-145) mmol/L Potassium 5.7 H (3.5-5.1) mmol/L Chloride 95 L (98-107) mmol/L Carbon Dioxide <5 L* (22-30) mmol/L Anion Gap [employer] BUN 35 H (9-20) mg/dL Creatinine 1.58 H (0.66-1.25) mg/dL Est GFR (CKD-EPI)AfAm 69 (>60 ml/min/1.73 sqM) Est GFR (CKD-EPI)NonAf 60 (>60 ml/min/1.73 sqM) Glucose 854 H* (74-99) mg/dL POC Glucose (mg/dL) >600 H* (70-110) mg/dL POC Glu Spinner Fixer ID Blankenship, [place] Calcium (8.4-10.2) mg/dL Phosphorus 9.4 H* (2.5-4.5) mg/dL Total Bilirubin (0.2-1.3) mg/dL AST (17-59) U/L ALT (4-49) U/L Alkaline Phosphatase (38-126) U/L Total Protein (6.3-8.2) g/dL Albumin (3.5-5.0) g/dL Urine Color Urine Appearance (Clear) Urine pH (5.0-8.0) Ur Specific [place] (1.001-1.035) Urine Protein (Negative) Urine Glucose (UA) (Negative) Urine Ketones (Negative) Urine Blood (Negative) Urine Nitrite (Negative) Urine Bilirubin (Negative) Urine Urobilinogen (<2.0) mg/dL Ur Leukocyte Esterase (Negative) Urine Opiates Screen (NotDetected) Ur Oxycodone Screen (NotDetected) Urine Methadone Screen (NotDetected) Ur Barbiturates Screen (NotDetected) U Tricyclic Antidepress (NotDetected) Ur Phencyclidine Scrn (NotDetected) Ur Amphetamines Screen (NotDetected) U Methamphetamines Scrn (NotDetected) U Benzodiazepines Scrn (NotDetected) Urine Cocaine Screen (NotDetected) U Marijuana (THC) Screen (NotDetected) Serum Alcohol mg/dL 01/29/24 Range/Units 20:54 WBC (3.8-10.6) k/uL RBC (4.30-5.90) m/uL Hgb (13.0-17.5) gm/dL Hct (39.0-53.0) % MCV (80.0-100.0) fL MCH (25.0-35.0) pg MCHC (31.0-37.0) g/dL RDW (11.5-15.5) % Plt Count (150-450) k/uL MPV Neutrophils % % Lymphocytes % % Monocytes % % Eosinophils % % Basophils % % Neutrophils # (1.3-7.7) k/uL Lymphocytes # (1.0-4.8) k/uL Monocytes # (0-1.0) k/uL Eosinophils # (0-0.7) k/uL Basophils # (0-0.2) k/uL Hypochromasia Anisocytosis Macrocytosis PT (10.0-12.5) sec INR (<1.2) Sodium (137-145) mmol/L Potassium (3.5-5.1) mmol/L Chloride (98-107) mmol/L Carbon Dioxide (22-30) mmol/L Anion Gap BUN (9-20) mg/dL Creatinine (0.66-1.25) mg/dL Est GFR (CKD-EPI)AfAm (>60 ml/min/1.73 sqM) Est GFR (CKD-EPI)NonAf (>60 ml/min/1.73 sqM) Glucose (74-99) mg/dL POC Glucose (mg/dL) >600 H* (70-110) mg/dL POC Glu Spinner Fixer ID Radha Blankenship Calcium (8.4-10.2) mg/dL Phosphorus (2.5-4.5) mg/dL Total Bilirubin (0.2-1.3) mg/dL AST (17-59) U/L ALT (4-49) U/L Alkaline Phosphatase (38-126) U/L Total Protein (6.3-8.2) g/dL Albumin (3.5-5.0) g/dL Urine Color Urine Appearance (Clear) Urine pH (5.0-8.0) Ur Specific [place] (1.001-1.035) Urine Protein (Negative) Urine Glucose (UA) (Negative) Urine Ketones (Negative) Urine Blood (Negative) Urine Nitrite (Negative) Urine Bilirubin (Negative) Urine Urobilinogen (<2.0) mg/dL Ur Leukocyte Esterase (Negative) Urine Opiates Screen (NotDetected) Ur Oxycodone Screen (NotDetected) Urine Methadone Screen (NotDetected) Ur Barbiturates Screen (NotDetected) U Tricyclic Antidepress (NotDetected) Ur Phencyclidine Scrn (NotDetected) Ur Amphetamines Screen (NotDetected) U Methamphetamines Scrn (NotDetected) U Benzodiazepines Scrn (NotDetected) Urine Cocaine Screen (NotDetected) U Marijuana (THC) Screen (NotDetected) Serum Alcohol mg/dL Disposition Clinical Impression: DKA (diabetic ketoacidosis), Nausea and vomiting Disposition: ADMITTED IP TO THIS [facility] Condition: Serious Is patient prescribed a controlled substance at d/c from ED?: No Time of Disposition: 20:57 Decision to Admit Reason: Admit from EC Decision Date: 01/29/24 Decision Time: 20:57
[2024-01-29 19:53] LABS: Glucose,Whole Blood >600 mg/dL (70-110)
[2024-01-29 19:54] LABS: Carbon Dioxide <5 mmol/L (22-30); Glucose 929 mg/dL (74-99)
[2024-01-29] MEDS: diphenhydrAMINE 50 MG/ML 1 ML VIAL IVP STA (20:01)
[2024-01-29] MEDS: METOCLOPRAMIDE 5 MG/ML 2 ML VIAL IVP STA (20:03)
[2024-01-29] MEDS: SODIUM CHLORIDE 0.9% 1,000 ML IV STA (20:11)
[2024-01-29] MEDS: INSULIN REGULAR 100 UNIT in SODIUM CHLORIDE 0.9% 100 ML IV SCH (20:11)
[2024-01-29 20:54] LABS: African American GFR (CKD) 69 (>60 ml/min/1.73 sqM); Blood Urea Nitrogen 35 mg/dL (9-20); Chloride 95 mmol/L (98-107); Non-African American GFR(CKD) 60 (>60 ml/min/1.73 sqM); Potassium 5.7 mmol/L (3.5-5.1); Sodium 136 mmol/L (137-145)
[2024-01-29 20:57] LABS: Glucose,Whole Blood >600 mg/dL (70-110)
[2024-01-29] MEDS ORDERED: NALOXONE 0.4 MG/ML 1 ML VIAL IV PRN (20:58)
[2024-01-29] MEDS ORDERED: Potassium Replacement Protocol 1 EACH MISC MISCELLANE PRN (20:58)
[2024-01-29] MEDS ORDERED: Magnesium Replacement Protocol 1 EACH MISC MISCELLANE PRN (20:58)
[2024-01-29] MEDS ORDERED: ACETAMINOPHEN TAB 325 MG TAB PO PRN (20:58)
[2024-01-29 21:11] LABS: Carbon Dioxide <5 mmol/L (22-30); Glucose 854 mg/dL (74-99)
[2024-01-29] MEDS: SODIUM BICARB 8.4% 50 ML SYR (1 MEQ/ML) IV STA (21:14)
[2024-01-29 21:20] LABS: Amphetamine Screen,Urine Not Detected (NotDetected); Barbiturate Screen,Urine Not Detected (NotDetected); Benzodiazepines Screen,Urine Not Detected (NotDetected); Cocaine Screen,Urine Not Detected (NotDetected); Methadone Screen, Urine Not Detected (NotDetected); Opiate Screen,Urine Not Detected (NotDetected); Oxycodone Screen, Urine Not Detected (NotDetected); Phencyclidine Screen,Urine Not Detected (NotDetected); Tricyclic Antidepressant,Urine Not Detected (NotDetected); Urn Cannabinoid Scrn Not Detected (NotDetected)
[2024-01-29 21:25] LABS: Appearance,Urine Clear (Clear); Bilirubin,Urine Negative (Negative); Blood,Urine Negative (Negative); Color,Urine Colorless; Glucose,Urine (UA) 4+ (Negative); Leukocyte Esterase,Urine Negative (Negative); Nitrite,Urine Negative (Negative); Protein,Urine Negative (Negative); Urobilinogen,Urine <2.0 mg/dL (<2.0)
[2024-01-29 21:26] LABS: Ketones,Urine 4+ (Negative)
[2024-01-29] MEDS: PANTOPRAZOLE 40 MG/10 ML VIAL IV SCH (22:02)
[2024-01-29 22:03] LABS: Glucose,Whole Blood 552 mg/dL (70-110)
[2024-01-29 23:08] LABS: Glucose,Whole Blood 405 mg/dL (70-110)
[2024-01-30 00:04] LABS: Glucose,Whole Blood 319 mg/dL (70-110)
--- NOTE | 2024-01-30 00:39 | P.CNPUL ---
History of Present Illness Consult date: 01/30/24 Requesting physician: Deana Shin Reason for consult: other (DKA; ICU management) Chief complaint: Nausea, vomiting, high blood sugars History of present illness: Patient is a 28-year-old white male with history of type 1 diabetes melitis and medication noncompliance. He has had numerous hospital admissions, and most recently hospitalized 01/18/2024 for the same. He presented to emergency department late last with CC high blood sugars followed by nausea and vomiting. Labs consistent with severe diabetic ketoacidosis. Blood glucose 929. Serum bicarb less than 5, anion gap unmeasurable, acetone positive. Patient was started on DKA protocol. Insulin is currently infusing at 7.5 units/h. Normal saline also infusing at 130 mL/h. Patient remains tachycardic, heart rate 130 bpm. Blood pressure normotensive. He is on room air, SpO2 100%. Had some coffee-ground emesis and bedside basin. Has history of gastritis. Has been evaluated by GI in the past. CBC: WBC count 18, hemoglobin stable at 12.6, hematocrit 43, platelets 578. CMP: Sodium 136, potassium 5.7, chloride 95, serum bicarb less than 5, anion gap unmeasurable, BUN 35, creatinine 1.58, current CBG 319. Phosphorus 9.4. Patient is being evaluated in the emergency department, trauma bay 2. He is awake and alert and answers most my questions. Denies any infectious-like symptoms. Denies fevers. Denies runny nose, sore throat, cough. States that he started vomiting yesterday evening. Denies any carly red blood. He has been having coffee-ground emesis. Denies any abdominal pain. Denies any hematochezia or melena. Most recent EGD performed 10/28/2022 showing antral gastritis. Maintained on Prilosec. He is going to be monitored in the intensive care unit once bed available. t. Review of Systems Constitutional: Reports fatigue, Reports weakness, Denies chills, Denies fever, Denies poor appetite Ears, nose, mouth and throat: Denies dysphagia, Denies epistaxis, Denies headache, Denies nasal congestion, Denies post-nasal drip, Denies sinus pressure, Denies sore throat Cardiovascular: Denies chest pain, Denies edema, Denies lightheadedness, Denies palpitations, Denies syncope Respiratory: Denies cough, Denies cough with sputum, Denies dyspnea, Denies hemoptysis, Denies respiratory infections Gastrointestinal: Reports coffee ground emesis, Reports indigestion, Reports nausea, Reports vomiting, Denies abdominal pain, Denies diarrhea Genitourinary: Reports polyuria, Denies dysuria, Denies flank pain Musculoskeletal: Denies limitation of motion, Denies muscle weakness Integumentary: Denies rash Neurological: Denies balance difficulties, Denies confusion, Denies head injury, Denies headaches, Denies syncope, Denies visual changes Psychiatric: Denies anxiety, Denies depression Past Medical History Past Medical History: Asthma, Diabetes Mellitus, Neurologic Disorder, Skin Disorder Additional Past Medical History / Comment(s): IDDM type I, neuropathy bilateral feet, DKA, eczema. History of Any Multi-Drug Resistant Organisms: None Reported Past Surgical History: Adenoidectomy Additional Past Surgical History / Comment(s): gastritis Past Anesthesia/Blood Transfusion Reactions: No Reported Reaction Past Psychological History: Anxiety, Depression Smoking Status: Former smoker Past Alcohol Use History: None Reported Past Drug Use History: None Reported - Past Family History Mother Family Medical History: CVA/TIA Additional Family Medical History / Comment(s): TIA Father Family Medical History: Hyperlipidemia, Hypertension Additional Family Medical History / Comment(s): . Medications and Allergies Home Medications Medication Instructions Recorded Confirmed Type Famotidine [Pepcid] 20 mg PO BID 04/29/23 01/30/24 History Gabapentin 600 mg PO TID 04/29/23 01/30/24 History Mirtazapine 7.5 mg PO HS 04/29/23 01/30/24 History Insulin Lispro 7 units SQ AC-TID 09/17/23 01/30/24 History Atorvastatin [Lipitor] 20 mg PO HS #30 tab 09/26/23 01/30/24 Rx Ferrous Sulfate [Iron (65 MG 325 mg PO DAILY 10/09/23 01/30/24 History Elemental)] Omeprazole 20 mg PO BID 10/30/23 01/30/24 History Acetaminophen Tab [Tylenol] 500 - 1,000 mg PO Q6H PRN 12/19/23 01/30/24 History Losartan [Cozaar] 50 mg PO DAILY 01/19/24 01/30/24 History Insulin Detemir [Levemir Flexpen] 30 units SQ DAILY@0700 01/30/24 01/30/24 History Allergies Allergy/AdvReac Type Severity Reaction Status Date / Time No Known Allergies Allergy Verified 01/30/24 09:28 Physical Exam Vitals: Vital Signs Temp Pulse Resp BP Pulse Ox 01/29/24 22:00 120 H 18 95/66 97 01/29/24 21:00 128 H 17 102/58 98 01/29/24 20:30 140 H 12 119/71 98 01/29/24 20:00 129 H 24 112/62 98 01/29/24 19:30 126 H 17 94/44 99 01/29/24 18:51 96.6 F L 01/29/24 18:44 129 H 22 92/61 99 Intake and Output 01/29/24 01/29/24 01/30/24 14:59 22:59 06:59 Other: Weight 74.843 kg GENERAL EXAM: Alert, 28-year-old white male, disheveled, emesis on chin, coffee- ground emesis at bedside basin, comfortable in no apparent distress. HEAD: Normocephalic and atraumatic EYES: Normal reaction of pupils, equal size. NOSE: Clear with pink turbinates. THROAT: No erythema or exudates. NECK: No masses, no JVD. CHEST: No chest wall deformity. LUNGS: Equal air entry with no crackles, wheeze, rhonchi or dullness. On room a ir. Nontachypneic. No conversational dyspnea or accessory muscle use.. CVS: S1 and S2 normal with no audible murmur, regular rhythm. No extra heart sounds. Tachycardic current heart rate 130 bpm ABDOMEN: Flat, active bowel sounds, soft abdomen without hepatosplenomegaly, no guarding or rigidity. SPINE: No scoliosis or deformity SKIN: No rashes CENTRAL NERVOUS SYSTEM: No focal deficits, tone is normal in all 4 extremities. EXTREMITIES: There is no peripheral edema, clubbing, or cyanosis. Peripheral pulses are intact. Results - Laboratory Findings CBC and BMP: 01/30/24 04:43 01/30/24 07:41 PT/INR, D-dimer PT 10.6 sec (10.0-12.5) 01/29/24 18:58 INR 1.0 (<1.2) 01/29/24 18:58 Abnormal lab findings: Abnormal Labs 01/29/24 01/29/24 01/29/24 18:45 18:58 18:58 WBC 18.0 H Hgb 12.6 L MCV 100.2 H D MCHC 29.2 L RDW 16.6 H Plt Count 578 H Neutrophils # 15.0 H Sodium 132 L Potassium 5.6 H Chloride 87 L Carbon Dioxide <5 L* BUN 35 H Creatinine 1.68 H Glucose 929 H* POC Glucose (mg/dL) >600 H* Phosphorus Alkaline Phosphatase 132 H Urine Glucose (UA) Urine Ketones 01/29/24 01/29/24 01/29/24 18:58 19:51 20:13 WBC Hgb MCV MCHC RDW Plt Count Neutrophils # Sodium Potassium Chloride Carbon Dioxide BUN Creatinine Glucose POC Glucose (mg/dL) >600 H* Phosphorus 9.4 H* Alkaline Phosphatase Urine Glucose (UA) 4+ H Urine Ketones 4+ H 01/29/24 01/29/24 01/29/24 20:13 20:54 21:57 WBC Hgb MCV MCHC RDW Plt Count Neutrophils # Sodium 136 L Potassium 5.7 H Chloride 95 L Carbon Dioxide <5 L* BUN 35 H Creatinine 1.58 H Glucose 854 H* POC Glucose (mg/dL) >600 H* 552 H* Phosphorus Alkaline Phosphatase Urine Glucose (UA) Urine Ketones 01/29/24 01/30/24 23:06 00:03 WBC Hgb MCV MCHC RDW Plt Count Neutrophils # Sodium Potassium Chloride Carbon Dioxide BUN Creatinine Glucose POC Glucose (mg/dL) 405 H 319 H Phosphorus Alkaline Phosphatase Urine Glucose (UA) Urine Ketones Assessment and Plan Assessment: Acute diabetic ketoacidosis, likely secondary to medication noncompliance. Patient has had numerous hospital admissions for DKA. Severe anion gap metabolic acidosis, secondary to above Hyperkalemia Hyperphosphatemia Severe dehydration Acute kidney injury, secondary to above Coffee-ground emesis History of gastritis Acute leukocytosis, likely reactive to DKA Type 1 diabetes mellitus, with poor medication compliance Diabetic neuropathy History of major depression Plan: Patient is being admitted to the intensive care unit Continue DKA protocol Insulin continues at 7.5 units/h. Continue normal saline is infusing at 200 mL/h. Monitor electrolytes, repeat BMP is pending. Repeat potassium levels pending. No hyperacute T waves or QRS widening on EKG. Continue PPI twice daily No GI service available; consult General surgery We will continue to follow the patient while in the intensive care unit I have personally seen and examined the patient, performed the documentation and the assessment and plan as written. Number of minutes spent on the visit:20 This is not evaluated with number with the nurse practitioner. This is more than 30 minutes. This is a another hospitalization for this patient for diabetic ketoacidosis. The patient was severely acidotic with a serum bicarb of less than 5 and anion gap of above 30. The patient was given a total of 2 L of IV fluids encouraged the patient on D5 half-normal saline at rate of 150 cc an hour. Most recent electrolytes show that the patient anion gap is closed and the patient will be transition to long-acting insulin with Levemir 30 units and NovoLog 5 units with meals. Less tachycardic. Awake and alert and communicating. Hemodynamically stable and the patient on room air oxygen. No need for ICU admission and the patient will be offered a diet. Awake and alert. Room air oxygen. On a separate note, the patient reports some coffee-ground emesis and has history of gastritis. Patient is on IV Protonix. t. Time with Patient: Greater than 30
[2024-01-30 01:11] LABS: Glucose,Whole Blood 247 mg/dL (70-110)
[2024-01-30] MEDS: D5-0.45% NACL WITH KCL 20MEQ/L 1,000 ML IV SCH (01:17)
[2024-01-30 01:32] LABS: African American GFR (CKD) >90 (>60 ml/min/1.73 sqM); Anion Gap 24 mmol/L; Blood Urea Nitrogen 35 mg/dL (9-20); Carbon Dioxide 14 mmol/L (22-30); Chloride 106 mmol/L (98-107); Glucose 267 mg/dL (74-99); Non-African American GFR(CKD) 83 (>60 ml/min/1.73 sqM); Potassium 4.5 mmol/L (3.5-5.1); Sodium 144 mmol/L (137-145)
[2024-01-30 02:07] LABS: Glucose,Whole Blood 233 mg/dL (70-110)
[2024-01-30 03:16] LABS: Glucose,Whole Blood 202 mg/dL (70-110)
[2024-01-30 04:08] LABS: Glucose,Whole Blood 191 mg/dL (70-110)
[2024-01-30 04:54] LABS: Anisocytosis Slight; Basophils # (A) 0.1 k/uL (0-0.2); Basophils % (A) 0 %; Eosinophils # (A) 0.2 k/uL (0-0.7); Eosinophils % (A) 1 %; HCT 36.6 % (39.0-53.0); HGB 11.8 gm/dL (13.0-17.5); Lymphocytes # (A) 2.2 k/uL (1.0-4.8); Lymphocytes % (A) 11 %; MCH 28.6 pg (25.0-35.0); MCHC 32.3 g/dL (31.0-37.0); Mean Platelet Volume 6.5; Monocytes # (A) 1.1 k/uL (0-1.0); Monocytes % (A) 6 %; Neutrophils # (A) 15.8 k/uL (1.3-7.7); Neutrophils % (A) 81 %; Platelet Count 574 k/uL (150-450); RBC 4.14 m/uL (4.30-5.90); RDW 17.1 % (11.5-15.5); WBC 19.5 k/uL (3.8-10.6)
[2024-01-30 05:07] LABS: MCV 88.5 fL (80.0-100.0)
[2024-01-30 05:10] LABS: Glucose,Whole Blood 189 mg/dL (70-110)
[2024-01-30 05:12] LABS: African American GFR (CKD) >90 (>60 ml/min/1.73 sqM); Anion Gap 15 mmol/L; Blood Urea Nitrogen 34 mg/dL (9-20); Calcium 9.2 mg/dL (8.4-10.2); Carbon Dioxide 21 mmol/L (22-30); Chloride 108 mmol/L (98-107); Glucose 175 mg/dL (74-99); Non-African American GFR(CKD) >90 (>60 ml/min/1.73 sqM); Potassium 4.3 mmol/L (3.5-5.1); Sodium 144 mmol/L (137-145)
[2024-01-30 06:17] LABS: Glucose,Whole Blood 135 mg/dL (70-110)
[2024-01-30 07:10] LABS: Glucose,Whole Blood 138 mg/dL (70-110)
[2024-01-30 08:10] LABS: Glucose,Whole Blood 122 mg/dL (70-110)
[2024-01-30 08:44] LABS: African American GFR (CKD) >90 (>60 ml/min/1.73 sqM); Anion Gap 10 mmol/L; Blood Urea Nitrogen 30 mg/dL (9-20); Calcium 8.6 mg/dL (8.4-10.2); Carbon Dioxide 23 mmol/L (22-30); Chloride 108 mmol/L (98-107); Glucose 133 mg/dL (74-99); Non-African American GFR(CKD) >90 (>60 ml/min/1.73 sqM); Potassium 4.1 mmol/L (3.5-5.1); Sodium 141 mmol/L (137-145)
[2024-01-30] MEDS: PANTOPRAZOLE 40 MG/10 ML VIAL IVP SCH (08:57)
[2024-01-30 09:15] LABS: Glucose,Whole Blood 139 mg/dL (70-110)
[2024-01-30] MEDS ORDERED: DEXTROSE 50% SYRINGE 50 ML IVP PRN ×2 (10:43)
[2024-01-30 10:45] LABS: Glucose,Whole Blood 196 mg/dL (70-110)
--- NOTE | 2024-01-30 10:55 | P.GSCN ---
History of Present Illness Consult date: 01/30/24 History of present illness: CHIEF COMPLAINT: DKA Reason for consult coffee-ground emesis HISTORY OF PRESENT ILLNESS: This is a 28-year-old male who presented to the ER with nausea, vomiting and high blood sugars. Patient had coffee ground emesis. Patient has a known history of DKA with multiple hospitalizations. Patient currently in DKA and surgical service was consulted in regards to coffee-ground emesis. Patient is unable to give history. Per nursing staff patient did have 1 episode of vomiting since being in the ER of coffee-ground emesis. His last EGD was in October 2022 with gastritis. Patient has been tachycardic blood sugars greater than 600 when he presented. Hemoglobin is currently 11.8. Patient denies any abdominal pain. Patient was just recently discharged from the hospital last week for DKA and at that time had coffee-ground emesis as well. Hemoglobin had remained stable and he had no further episodes of coffee-ground emesis and had been tolerating diet prior to discharge. PAST MEDICAL HISTORY: Asthma, Diabetes Mellitus, Neurologic Disorder, Skin Disorder, gastritis, anxiety and depression PAST SURGICAL HISTORY: Adenoidectomy MEDICATIONS: See below ALLERGIES: See below SOCIAL HISTORY: No illicit drug use. REVIEW OF SYSTEMS: CONSTITUTIONAL: Denies fever or chills. HEENT: Denies blurred vision, vision changes, or eye pain. Denies hemoptysis CARDIOVASCULAR: Denies chest pain or pressure. RESPIRATORY: No shortness of breath. GASTROINTESTINAL: See HPI for pertinent findings HEMATOLOGIC: Denies bleeding disorders. GENITOURINARY: Denies any blood in urine or increased urinary frequency. SKIN: Denies pruitis. Denies rash. PHYSICAL EXAM: VITAL SIGNS: Reviewed GENERAL: no acute distress. HEENT: No sclera icterus. Extraocular movements grossly intact. Moist buccal mucosa. Head is atraumatic, normocephalic. No nasal drainage. ABDOMEN: Soft. Nondistended. Nontender NEUROLOGIC: Lethargic LABORATORY DATA: WBC 19.5 Hgb 12.6 down to 11.8 platelets 574 Sodium 141 potassium is 4.1 creatinine 1.58-0.71 Glucose currently 196 IMAGING: ASSESSMENT: 1. Coffee-ground emesis with history of gastritis 2. Recurrent admissions for DKA PLAN: -Patient scheduled for EGD on 02/02/[address] Sweeney -Continue IV Protonix BID -Continue to monitor for any signs or symptoms of bleeding -Continue to monitor hemoglobin Physician Aerosol Line Operator note has been reviewed by physician. Signing provider agrees with the documented findings, assessment, and plan of care. Past Medical History Past Medical History: Asthma, Diabetes Mellitus, Neurologic Disorder, Skin Dis order Additional Past Medical History / Comment(s): IDDM type I, neuropathy bilateral feet, DKA, eczema. History of Any Multi-Drug Resistant Organisms: None Reported Past Surgical History: Adenoidectomy Additional Past Surgical History / Comment(s): gastritis Past Anesthesia/Blood Transfusion Reactions: No Reported Reaction Past Psychological History: Anxiety, Depression Smoking Status: Former smoker Past Alcohol Use History: None Reported Past Drug Use History: None Reported - Past Family History Mother Family Medical History: CVA/TIA Additional Family Medical History / Comment(s): TIA Father Family Medical History: Hyperlipidemia, Hypertension Additional Family Medical History / Comment(s): . Medications and Allergies Home Medications Medication Instructions Recorded Confirmed Type Famotidine [Pepcid] 20 mg PO BID 04/29/23 01/30/24 History Gabapentin 600 mg PO TID 04/29/23 01/30/24 History Mirtazapine 7.5 mg PO HS 04/29/23 01/30/24 History Insulin Lispro 7 units SQ AC-TID 09/17/23 01/30/24 History Atorvastatin [Lipitor] 20 mg PO HS #30 tab 09/26/23 01/30/24 Rx Ferrous Sulfate [Iron (65 MG 325 mg PO DAILY 10/09/23 01/30/24 History Elemental)] Omeprazole 20 mg PO BID 10/30/23 01/30/24 History Acetaminophen Tab [Tylenol] 500 - 1,000 mg PO Q6H PRN 12/19/23 01/30/24 History Losartan [Cozaar] 50 mg PO DAILY 01/19/24 01/30/24 History Insulin Detemir [Levemir Flexpen] 30 units SQ DAILY@0700 01/30/24 01/30/24 History Allergies Allergy/AdvReac Type Severity Reaction Status Date / Time No Known Allergies Allergy Verified 01/30/24 09:28 Surgical - Exam Vital Signs Pulse Resp BP Pulse Ox 129 H 22 92/61 99 01/29/24 18:44 01/29/24 18:44 01/29/24 18:44 01/29/24 18:44 Results - Labs 01/30/24 04:43 01/30/24 07:41 Abnormal Lab Results - Last 24 Hours (Table) 01/29/24 01/29/24 01/29/24 Range/Units 18:45 18:58 18:58 WBC 18.0 H (3.8-10.6) k/uL RBC (4.30-5.90) m/uL Hgb 12.6 L (13.0-17.5) gm/dL Hct (39.0-53.0) % MCV 100.2 H D (80.0-100.0) fL MCHC 29.2 L (31.0-37.0) g/dL RDW 16.6 H (11.5-15.5) % Plt Count 578 H (150-450) k/uL Neutrophils # 15.0 H (1.3-7.7) k/uL Monocytes # (0-1.0) k/uL Sodium 132 L (137-145) mmol/L Potassium 5.6 H (3.5-5.1) mmol/L Chloride 87 L (98-107) mmol/L Carbon Dioxide <5 L* (22-30) mmol/L BUN 35 H (9-20) mg/dL Creatinine 1.68 H (0.66-1.25) mg/dL Glucose 929 H* (74-99) mg/dL POC Glucose (mg/dL) >600 H* (70-110) mg/dL Phosphorus (2.5-4.5) mg/dL Alkaline Phosphatase 132 H (38-126) U/L Urine Glucose (UA) (Negative) Urine Ketones (Negative) 01/29/24 01/29/24 01/29/24 Range/Units 18:58 19:51 20:13 WBC (3.8-10.6) k/uL RBC (4.30-5.90) m/uL Hgb (13.0-17.5) gm/dL Hct (39.0-53.0) % MCV (80.0-100.0) fL MCHC (31.0-37.0) g/dL RDW (11.5-15.5) % Plt Count (150-450) k/uL Neutrophils # (1.3-7.7) k/uL Monocytes # (0-1.0) k/uL Sodium (137-145) mmol/L Potassium (3.5-5.1) mmol/L Chloride (98-107) mmol/L Carbon Dioxide (22-30) mmol/L BUN (9-20) mg/dL Creatinine (0.66-1.25) mg/dL Glucose (74-99) mg/dL POC Glucose (mg/dL) >600 H* (70-110) mg/dL Phosphorus 9.4 H* (2.5-4.5) mg/dL Alkaline Phosphatase (38-126) U/L Urine Glucose (UA) 4+ H (Negative) Urine Ketones 4+ H (Negative) 01/29/24 01/29/24 01/29/24 Range/Units 20:13 20:54 21:57 WBC (3.8-10.6) k/uL RBC (4.30-5.90) m/uL Hgb (13.0-17.5) gm/dL Hct (39.0-53.0) % MCV (80.0-100.0) fL MCHC (31.0-37.0) g/dL RDW (11.5-15.5) % Plt Count (150-450) k/uL Neutrophils # (1.3-7.7) k/uL Monocytes # (0-1.0) k/uL Sodium 136 L (137-145) mmol/L Potassium 5.7 H (3.5-5.1) mmol/L Chloride 95 L (98-107) mmol/L Carbon Dioxide <5 L* (22-30) mmol/L BUN 35 H (9-20) mg/dL Creatinine 1.58 H (0.66-1.25) mg/dL Glucose 854 H* (74-99) mg/dL POC Glucose (mg/dL) >600 H* 552 H* (70-110) mg/dL Phosphorus (2.5-4.5) mg/dL Alkaline Phosphatase (38-126) U/L Urine Glucose (UA) (Negative) Urine Ketones (Negative) 01/29/24 01/30/24 01/30/24 Range/Units 23:06 00:03 00:54 WBC (3.8-10.6) k/uL RBC (4.30-5.90) m/uL Hgb (13.0-17.5) gm/dL Hct (39.0-53.0) % MCV (80.0-100.0) fL MCHC (31.0-37.0) g/dL RDW (11.5-15.5) % Plt Count (150-450) k/uL Neutrophils # (1.3-7.7) k/uL Monocytes # (0-1.0) k/uL Sodium (137-145) mmol/L Potassium (3.5-5.1) mmol/L Chloride (98-107) mmol/L Carbon Dioxide 14 L (22-30) mmol/L BUN 35 H (9-20) mg/dL Creatinine (0.66-1.25) mg/dL Glucose 267 H (74-99) mg/dL POC Glucose (mg/dL) 405 H 319 H (70-110) mg/dL Phosphorus (2.5-4.5) mg/dL Alkaline Phosphatase (38-126) U/L Urine Glucose (UA) (Negative) Urine Ketones (Negative) 01/30/24 01/30/24 01/30/24 Range/Units 01:09 02:05 03:15 WBC (3.8-10.6) k/uL RBC (4.30-5.90) m/uL Hgb (13.0-17.5) gm/dL Hct (39.0-53.0) % MCV (80.0-100.0) fL MCHC (31.0-37.0) g/dL RDW (11.5-15.5) % Plt Count (150-450) k/uL Neutrophils # (1.3-7.7) k/uL Monocytes # (0-1.0) k/uL Sodium (137-145) mmol/L Potassium (3.5-5.1) mmol/L Chloride (98-107) mmol/L Carbon Dioxide (22-30) mmol/L BUN (9-20) mg/dL Creatinine (0.66-1.25) mg/dL Glucose (74-99) mg/dL POC Glucose (mg/dL) 247 H 233 H 202 H (70-110) mg/dL Phosphorus (2.5-4.5) mg/dL Alkaline Phosphatase (38-126) U/L Urine Glucose (UA) (Negative) Urine Ketones (Negative) 01/30/24 01/30/24 01/30/24 Range/Units 04:06 04:43 04:43 WBC 19.5 H (3.8-10.6) k/uL RBC 4.14 L (4.30-5.90) m/uL Hgb 11.8 L (13.0-17.5) gm/dL Hct 36.6 L (39.0-53.0) % MCV (80.0-100.0) fL MCHC (31.0-37.0) g/dL RDW 17.1 H (11.5-15.5) % Plt Count 574 H (150-450) k/uL Neutrophils # 15.8 H (1.3-7.7) k/uL Monocytes # 1.1 H (0-1.0) k/uL Sodium (137-145) mmol/L Potassium (3.5-5.1) mmol/L Chloride 108 H (98-107) mmol/L Carbon Dioxide 21 L (22-30) mmol/L BUN 34 H (9-20) mg/dL Creatinine (0.66-1.25) mg/dL Glucose 175 H (74-99) mg/dL POC Glucose (mg/dL) 191 H (70-110) mg/dL Phosphorus (2.5-4.5) mg/dL Alkaline Phosphatase (38-126) U/L Urine Glucose (UA) (Negative) Urine Ketones (Negative) 01/30/24 01/30/24 01/30/24 Range/Units 05:08 06:16 07:09 WBC (3.8-10.6) k/uL RBC (4.30-5.90) m/uL Hgb (13.0-17.5) gm/dL Hct (39.0-53.0) % MCV (80.0-100.0) fL MCHC (31.0-37.0) g/dL RDW (11.5-15.5) % Plt Count (150-450) k/uL Neutrophils # (1.3-7.7) k/uL Monocytes # (0-1.0) k/uL Sodium (137-145) mmol/L Potassium (3.5-5.1) mmol/L Chloride (98-107) mmol/L Carbon Dioxide (22-30) mmol/L BUN (9-20) mg/dL Creatinine (0.66-1.25) mg/dL Glucose (74-99) mg/dL POC Glucose (mg/dL) 189 H 135 H 138 H (70-110) mg/dL Phosphorus (2.5-4.5) mg/dL Alkaline Phosphatase (38-126) U/L Urine Glucose (UA) (Negative) Urine Ketones (Negative) 01/30/24 01/30/24 01/30/24 Range/Units 07:41 08:09 09:14 WBC (3.8-10.6) k/uL RBC (4.30-5.90) m/uL Hgb (13.0-17.5) gm/dL Hct (39.0-53.0) % MCV (80.0-100.0) fL MCHC (31.0-37.0) g/dL RDW (11.5-15.5) % Plt Count (150-450) k/uL Neutrophils # (1.3-7.7) k/uL Monocytes # (0-1.0) k/uL Sodium (137-145) mmol/L Potassium (3.5-5.1) mmol/L Chloride 108 H (98-107) mmol/L Carbon Dioxide (22-30) mmol/L BUN 30 H (9-20) mg/dL Creatinine (0.66-1.25) mg/dL Glucose 133 H (74-99) mg/dL POC Glucose (mg/dL) 122 H 139 H (70-110) mg/dL Phosphorus (2.5-4.5) mg/dL Alkaline Phosphatase (38-126) U/L Urine Glucose (UA) (Negative) Urine Ketones (Negative) Diabetes panel 01/29/24 01/29/24 01/30/24 Range/Units 18:58 20:13 00:54 Sodium 132 L 136 L 144 (137-145) mmol/L Potassium 5.6 H 5.7 H 4.5 (3.5-5.1) mmol/L Chloride 87 L 95 L 106 (98-107) mmol/L Carbon Dioxide <5 L* <5 L* 14 L (22-30) mmol/L BUN 35 H 35 H 35 H (9-20) mg/dL Creatinine 1.68 H 1.58 H 1.20 (0.66-1.25) mg/dL Glucose 929 H* 854 H* 267 H (74-99) mg/dL Calcium 9.5 (8.4-10.2) mg/dL AST 26 (17-59) U/L ALT 38 (4-49) U/L Alkaline Phosphatase 132 H (38-126) U/L Total Protein 6.7 (6.3-8.2) g/dL Albumin 4.7 (3.5-5.0) g/dL 01/30/24 01/30/24 Range/Units 04:43 07:41 Sodium 144 141 (137-145) mmol/L Potassium 4.3 4.1 (3.5-5.1) mmol/L Chloride 108 H 108 H (98-107) mmol/L Carbon Dioxide 21 L 23 (22-30) mmol/L BUN 34 H 30 H (9-20) mg/dL Creatinine 0.87 0.71 (0.66-1.25) mg/dL Glucose 175 H 133 H (74-99) mg/dL Calcium 9.2 8.6 (8.4-10.2) mg/dL AST (17-59) U/L ALT (4-49) U/L Alkaline Phosphatase (38-126) U/L Total Protein (6.3-8.2) g/dL Albumin (3.5-5.0) g/dL Calcium panel 01/29/24 01/29/24 01/30/24 Range/Units 18:58 20:13 00:54 Calcium 9.5 (8.4-10.2) mg/dL Phosphorus 9.4 H* 3.1 (2.5-4.5) mg/dL Albumin 4.7 (3.5-5.0) g/dL 01/30/24 01/30/24 Range/Units 04:43 07:41 Calcium 9.2 8.6 (8.4-10.2) mg/dL Phosphorus (2.5-4.5) mg/dL Albumin (3.5-5.0) g/dL Pituitary panel 01/29/24 01/29/24 01/30/24 Range/Units 18:58 20:13 00:54 Sodium 132 L 136 L 144 (137-145) mmol/L Potassium 5.6 H 5.7 H 4.5 (3.5-5.1) mmol/L Chloride 87 L 95 L 106 (98-107) mmol/L Carbon Dioxide <5 L* <5 L* 14 L (22-30) mmol/L BUN 35 H 35 H 35 H (9-20) mg/dL Creatinine 1.68 H 1.58 H 1.20 (0.66-1.25) mg/dL Glucose 929 H* 854 H* 267 H (74-99) mg/dL Calcium 9.5 (8.4-10.2) mg/dL 01/30/24 01/30/24 Range/Units 04:43 07:41 Sodium 144 141 (137-145) mmol/L Potassium 4.3 4.1 (3.5-5.1) mmol/L Chloride 108 H 108 H (98-107) mmol/L Carbon Dioxide 21 L 23 (22-30) mmol/L BUN 34 H 30 H (9-20) mg/dL Creatinine 0.87 0.71 (0.66-1.25) mg/dL Glucose 175 H 133 H (74-99) mg/dL Calcium 9.2 8.6 (8.4-10.2) mg/dL Adrenal panel 01/29/24 01/29/24 01/30/24 Range/Units 18:58 20:13 00:54 Sodium 132 L 136 L 144 (137-145) mmol/L Potassium 5.6 H 5.7 H 4.5 (3.5-5.1) mmol/L Chloride 87 L 95 L 106 (98-107) mmol/L Carbon Dioxide <5 L* <5 L* 14 L (22-30) mmol/L BUN 35 H 35 H 35 H (9-20) mg/dL Creatinine 1.68 H 1.58 H 1.20 (0.66-1.25) mg/dL Glucose 929 H* 854 H* 267 H (74-99) mg/dL Calcium 9.5 (8.4-10.2) mg/dL Total Bilirubin 0.6 (0.2-1.3) mg/dL AST 26 (17-59) U/L ALT 38 (4-49) U/L Alkaline Phosphatase 132 H (38-126) U/L Total Protein 6.7 (6.3-8.2) g/dL Albumin 4.7 (3.5-5.0) g/dL 01/30/24 01/30/24 Range/Units 04:43 07:41 Sodium 144 141 (137-145) mmol/L Potassium 4.3 4.1 (3.5-5.1) mmol/L Chloride 108 H 108 H (98-107) mmol/L Carbon Dioxide 21 L 23 (22-30) mmol/L BUN 34 H 30 H (9-20) mg/dL Creatinine 0.87 0.71 (0.66-1.25) mg/dL Glucose 175 H 133 H (74-99) mg/dL Calcium 9.2 8.6 (8.4-10.2) mg/dL Total Bilirubin (0.2-1.3) mg/dL AST (17-59) U/L ALT (4-49) U/L Alkaline Phosphatase (38-126) U/L Total Protein (6.3-8.2) g/dL Albumin (3.5-5.0) g/dL
[2024-01-30] MEDS: INSULIN DETEMIR (LEVEMIR) 100 UNIT/ML SYR SQ SCH (11:17)
[2024-01-30 12:35] LABS: Glucose,Whole Blood 289 mg/dL (70-110)
[2024-01-30] MEDS: INSULIN ASPART (NovoLOG) 100 UNIT/ML VIAL SQ SCH (14:01)
[2024-01-30 18:13] LABS: Glucose,Whole Blood 161 mg/dL (70-110)
[2024-01-30] MEDS: INSULIN LISPRO (For Pump) 100 UNIT/ML VIAL SQ-PUMP SCH (18:22)
[2024-01-30] MEDS: PANTOPRAZOLE 40 MG TABLET PO SCH (18:33)
[2024-01-30 19:57] LABS: Glucose,Whole Blood 153 mg/dL (70-110)
[2024-01-30] MEDS: FAMOTIDINE 20 MG TAB PO SCH (20:28)
[2024-01-30 22:03] LABS: Glucose,Whole Blood 184 mg/dL (70-110)
--- NOTE | 2024-01-30 22:24 | PN ---
PROGRESS NOTE DATE OF SERVICE: 01/30/2024 In the emergency room. CHIEF COMPLAINT: Diabetic ketoacidosis. HISTORY OF PRESENT ILLNESS: This gentleman's blood sugars are coming down and gap is closing. He is being placed back on his basal bolus insulin program. OBJECTIVE: GENERAL: He is still very dehydrated and lethargic. CHEST: Clear. CARDIAC: Normal. ABDOMEN: Soft, nontender. IMPRESSION: 1. Diabetic ketoacidosis. 2. Dehydration. PLAN: Continue usual program of controlling his blood sugars and rehydration. MMODL / IJN: [id number] /
--- NOTE | 2024-01-31 00:06 | HP ---
HISTORY AND PHYSICAL CHIEF COMPLAINT: Diabetic ketoacidosis. HISTORY OF PRESENT ILLNESS: This is another of many admissions for this young man who is extremely depressed and noncompliant with management of his type 1 diabetes. He was just discharged several days ago. He goes home, does not take his insulin and then comes back in DKA. REVIEW OF SYSTEMS: Unobtainable. He is quite lethargic. He is dehydrated. Past medical history, family history, personal and social histories are unchanged. PHYSICAL EXAMINATION: GENERAL: He is dehydrated and has sinus tachycardia. HEAD, EARS, EYES, NOSE, MOUTH, AND THROAT: Otherwise, normal. CHEST: Clear. CARDIAC: Normal. ABDOMEN: Soft, nontender. EXTREMITIES: Normal. IMPRESSION: 1. Diabetic ketoacidosis. 2. Dehydration. 3. Noncompliant type 1 insulin-dependent diabetic. 4. Gastroparesis. 5. Peripheral neuropathy. 6. Depression, major. PLAN: 1. Bedrest. 2. IV fluids. 3. ICU consult. MMBIANCA / ALDEN: [id number] /
[2024-01-31 02:12] LABS: Glucose,Whole Blood 103 mg/dL (70-110)
[2024-01-31 05:27] LABS: Glucose,Whole Blood 103 mg/dL (70-110)
[2024-01-31] MEDS: METOCLOPRAMIDE 5 MG/ML 2 ML VIAL IVP PRN (05:55)
[2024-01-31] MEDS: INSULIN DETEMIR (LEVEMIR) 100 UNIT/ML SYR SQ SCH (06:58)
[2024-01-31] MEDS ORDERED: INSULIN DETEMIR (LEVEMIR) 100 UNIT/ML SYR SQ SCH (07:00)
[2024-01-31 08:13] LABS: Anisocytosis Slight; HCT 32.4 % (39.0-53.0); HGB 10.6 gm/dL (13.0-17.5); MCH 29.2 pg (25.0-35.0); MCHC 32.8 g/dL (31.0-37.0); MCV 88.9 fL (80.0-100.0); Mean Platelet Volume 6.2; Platelet Count 449 k/uL (150-450); RBC 3.64 m/uL (4.30-5.90); RDW 17.2 % (11.5-15.5)
[2024-01-31 08:36] VITALS: RESP 16
[2024-01-31 10:22] LABS: Glucose,Whole Blood 100 mg/dL (70-110)
--- NOTE | 2024-01-31 13:06 | P.PN ---
Subjective Progress Note Date: 01/31/24 CHIEF COMPLAINT: Hematemesis HISTORY OF PRESENT ILLNESS: The patient is a 28-year-old male admitted for intractable nausea and vomiting with DKA. Today he had salad for lunch and then been able to keep that down. No emesis or hematemesis today. Hemoglobin did decline from 12.6-10.6 in 24 to 48 hours. ROS: No fevers or chills. No new chest pain. No productive sputum PHYSICAL EXAM: VITAL SIGNS: Reviewed CONSTITUTIONAL: Well developed and in no acute distress. EYES: Conjuctivae without sclera icterus. Extraocular movements grossly intact. HEAD, EARS, NOSE, THROAT: Moist buccal mucosa. Head is atraumatic, normocephalic. Hears conversational speech. No nasal drainage. RESPIRATORY: Non-labored respirations and equal bilateral excursions. CARDIOVASCULAR: Palpable 2+ radial pulses. ABDOMEN: Nontender. MUSCULOSKELETAL: No gross deformity of the lower extremities noted. No clubbin g. No cyanosis. SKIN: Good skin turgor. Well perfused. NEUROLOGIC: Cranial nerves II through XII grossly intact. No focal or lateralizing signs. PSYCH: Appropriate affect. Alert and oriented to person, place and time. CLINICAL LABS: Reviewed. Hemoglobin admission 12.6, anemia. Hemoglobin today 10.6, 2 g/dL decline in 48 hours. WBC elevated 13,000 ASSESSMENT: 1. DKA with intractable nausea and vomiting 2. Hematemesis with acute blood loss anemia PLAN: 1. Recommend upper endoscopy due to hematemesis and acute decline in hemoglobin. 2. Protonix 40 mg twice daily 3. Recheck current weight which currently is documented as 40 kg Objective - Vital Signs Vital signs: Vital Signs Temp 98.0 F 01/31/24 07:53 Pulse 93 01/31/24 07:53 Resp 16 01/31/24 07:53 BP 123/85 01/31/24 07:53 Pulse Ox 100 01/31/24 07:53 FiO2 Intake & Output 01/30/24 01/31/24 01/31/24 18:59 06:59 18:59 Intake Total 6.483 Balance 6.483 Weight 40 kg Intake: Intake, IV Titration 6.483 Amount Insulin Regular 100 unit 6.483 In Sodium Chloride 0.9% 100 ml @ 0.1 UNITS/KG/HR 7.559 mls/hr IV .[id number] [facility] Rx#:[id number] - Labs CBC & Chem 7: 01/31/24 07:48 01/30/24 07:41 Labs: Abnormal Lab Results - Last 24 Hours (Table) 01/30/24 01/30/24 01/30/24 Range/Units 18:11 19:55 22:02 WBC (3.8-10.6) k/uL RBC (4.30-5.90) m/uL Hgb (13.0-17.5) gm/dL Hct (39.0-53.0) % RDW (11.5-15.5) % POC Glucose (mg/dL) 161 H 153 H 184 H (70-110) mg/dL Hemoglobin A1c (<=6.0) % 01/31/24 01/31/24 Range/Units 05:55 07:48 WBC 13.0 H (3.8-10.6) k/uL RBC 3.64 L (4.30-5.90) m/uL Hgb 10.6 L (13.0-17.5) gm/dL Hct 32.4 L (39.0-53.0) % RDW 17.2 H (11.5-15.5) % POC Glucose (mg/dL) (70-110) mg/dL Hemoglobin A1c 11.7 H (<=6.0) %
--- NOTE | 2024-01-31 13:55 | P.PN ---
Subjective Progress Note Date: 01/31/24 Patient is a 28-year-old white male with history of type 1 diabetes melitis and medication noncompliance. He has had numerous hospital admissions, and most recently hospitalized 01/18/2024 for the same. He presented to emergency department late last with CC high blood sugars followed by nausea and vomiting. Labs consistent with severe diabetic ketoacidosis. Blood glucose 929. Serum bicarb less than 5, anion gap unmeasurable, acetone positive. Patient was started on DKA protocol. Insulin is currently infusing at 7.5 units/h. Normal saline also infusing at 130 mL/h. Patient remains tachycardic, heart rate 130 bpm. Blood pressure normotensive. He is on room air, SpO2 100%. Had some coffee-ground emesis and bedside basin. Has history of gastritis. Has been evaluated by GI in the past. CBC: WBC count 18, hemoglobin stable at 12.6, hematocrit 43, platelets 578. CMP: Sodium 136, potassium 5.7, chloride 95, serum bicarb less than 5, anion gap unmeasurable, BUN 35, creatinine 1.58, current CBG 319. Phosphorus 9.4. Patient is being evaluated in the emergency department, trauma bay 2. He is awake and alert and answers most my questions. Denies any infectious-like symptoms. Denies fevers. Denies runny nose, sore throat, cough. States that he started vomiting yesterday evening. Denies any carly red blood. He has been having coffee-ground emesis. Denies any abdominal pain. Denies any hematochezia or melena. Most recent EGD performed 10/28/2022 showing antral gastritis. Maintained on Prilosec. He is going to be monitored in the intensive care unit once bed available. On 01/31/2024, the patient is being seen for a follow-up. No new complaints. Currently on Levemir insulin 30 units daily and NovoLog 5 units with meals. Alert and awake. Morning blood sugars is 100. Hemoglobin is at 10.6 with a white cell count of 13. The patient has no nausea or emesis. No other complaints otherwise for now Objective - Vital Signs Vital signs: Vital Signs Temp 98.0 F 01/31/24 07:53 Pulse 93 01/31/24 07:53 Resp 16 01/31/24 07:53 BP 123/85 01/31/24 07:53 Pulse Ox 100 01/31/24 07:53 FiO2 Intake & Output 01/30/24 01/31/24 01/31/24 18:59 06:59 18:59 Intake Total 6.483 Balance 6.483 Weight 40 kg Intake: Intake, IV Titration 6.483 Amount Insulin Regular 100 unit 6.483 In Sodium Chloride 0.9% 100 ml @ 0.1 UNITS/KG/HR 7.559 mls/hr IV .[id number] [facility] Rx#:[id number] - Exam GENERAL EXAM: Alert, 28-year-old white male, awake and alert. Currently on room air oxygen HEAD: Normocephalic and atraumatic EYES: Normal reaction of pupils, equal size. NOSE: Clear with pink turbinates. THROAT: No erythema or exudates. NECK: No masses, no JVD. CHEST: No chest wall deformity. LUNGS: Equal air entry with no crackles, wheeze, rhonchi or dullness. On room air. Nontachypneic. No conversational dyspnea or accessory muscle use.. CVS: S1 and S2 normal with no audible murmur, regular rhythm. No extra heart sounds. ABDOMEN: Flat, active bowel sounds, soft abdomen without hepatosplenomegaly, no guarding or rigidity. SPINE: No scoliosis or deformity SKIN: No rashes CENTRAL NERVOUS SYSTEM: No focal deficits, tone is normal in all 4 extremities. EXTREMITIES: There is no peripheral edema, clubbing, or cyanosis. Peripheral pulses are intact. - Labs CBC & Chem 7: 01/31/24 07:48 01/30/24 07:41 Labs: Abnormal Lab Results - Last 24 Hours (Table) 01/30/24 01/30/24 01/30/24 Range/Units 12:34 18:11 19:55 WBC (3.8-10.6) k/uL RBC (4.30-5.90) m/uL Hgb (13.0-17.5) gm/dL Hct (39.0-53.0) % RDW (11.5-15.5) % POC Glucose (mg/dL) 289 H 161 H 153 H (70-110) mg/dL Hemoglobin A1c (<=6.0) % 09/06/24 09/07/24 09/07/24 Range/Units 22:02 05:55 07:48 WBC 13.0 H (3.8-10.6) k/uL RBC 3.64 L (4.30-5.90) m/uL Hgb 10.6 L (13.0-17.5) gm/dL Hct 32.4 L (39.0-53.0) % RDW 17.2 H (11.5-15.5) % POC Glucose (mg/dL) 184 H (70-110) mg/dL Hemoglobin A1c 11.7 H (<=6.0) % Assessment and Plan Assessment: Acute diabetic ketoacidosis, secondary to medication noncompliance, recovered Severe anion gap metabolic acidosis, secondary to above, recovered Hyperkalemia, recovered Hyperphosphatemia Severe dehydration, recovered Acute kidney injury, secondary to above, recovered Coffee-ground emesis, currently inactive and stable on Protonix History of gastritis Acute leukocytosis, likely reactive to DKA Type 1 diabetes mellitus, with poor medication compliance Diabetic neuropathy History of major depression Plan: DKA recovered Continue long-acting insulin with Levemir 30 units and NovoLog 5 units with meals. Tachycardia recovered Awake and alert and communicating. Patient is being admitted to the intensive care unit Patient is on IV Protonix. t.
[2024-01-31 14:39] LABS: Glucose,Whole Blood 194 mg/dL (70-110)
[2024-01-31 15:13] VITALS: BP 105/64; PULSE 89; TEMP 98.2
[2024-01-31 17:02] LABS: Glucose,Whole Blood 138 mg/dL (70-110)
--- NOTE | 2024-02-01 01:19 | DS ---
DISCHARGE SUMMARY CHIEF COMPLAINT: DKA. HISTORY OF PRESENT ILLNESS AND PHYSICAL EXAMINATION: Details of this man's history and physical can be found in the initial workup. LABORATORY STUDIES: While he was in the hospital, he had laboratory studies, details of which can be found in the laboratory section of his chart. COURSE IN HOSPITAL: After admission, he was placed on bedrest, started on intravenous fluids in ICU and was managed by the feed mill manager. Sugars came down as usual and his gap closed. He is doing well and was awake and alert with good blood sugars on the 7th and it was felt that he could be discharged. He will be followed up in the office next week. FINAL DIAGNOSES: 1. Diabetic ketoacidosis. 2. Noncompliant patient. 3. Type 1 insulin-dependent diabetes mellitus. 4. Gastroparesis. 5. Peripheral neuropathy. 6. Depression. 7. Anemia. OPERATIONS: None. 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 He is improved. MMSHANEL / TRAMN: [id number] /
== END 2024-01-31 18:40 | disposition home or self-care (01) | DRG 420 ==
LOC: EC 18:42 → 2SICU 21:03 → 4SSUR 01-30 14:04
PROVIDERS: ADMIT Family Medicine; ATTEND Family Medicine
DX: E10.10 Type 1 diabetes mellitus with ketoacidosis without coma (principal); K29.71 Gastritis, unspecified, with bleeding; N17.9 Acute kidney failure, unspecified; K92.0 Hematemesis; D62 Acute posthemorrhagic anemia; E83.39 Other disorders of phosphorus metabolism; E10.43 Type 1 diabetes mellitus with diabetic autonomic (poly)neuropathy; E10.42 Type 1 diabetes mellitus with diabetic polyneuropathy; F32.9 Major depressive disorder, single episode, unspecified; J45.909 Unspecified asthma, uncomplicated; K31.84 Gastroparesis; E86.0 Dehydration; E87.5 Hyperkalemia; L30.9 Dermatitis, unspecified; Z79.4 Long term (current) use of insulin; Z79.899 Other long term (current) drug therapy; Z87.891 Personal history of nicotine dependence; Z91.148 Patient's other noncompliance with medication regimen for other reason
CPT/HCPCS: 36415; 80048; 80051; 80053; 80306; 80320; 81003; 82565; 82947; 83036; 84100; 84520; 85025; 85027; 85610; 93005; 96361; 96365; 96366; 96375; 96376; 99291

== ENCOUNTER 2024-02-03 07:12 | Inpatient (IN) | payer SELFPAY ==
[2024-02-03] MEDS: SODIUM CHLORIDE 0.9% 1,000 ML IV STA (07:29)
[2024-02-03 07:55] LABS: Anisocytosis Slight; Basophils # (A) 0.1 k/uL (0-0.2); Basophils % (A) 0 %; Eosinophils % (A) 0 %; HCT 41.4 % (39.0-53.0); HGB 11.9 gm/dL (13.0-17.5); Hypochromasia Marked; Lymphocytes # (A) 1.6 k/uL (1.0-4.8); Lymphocytes % (A) 11 %; MCH 28.9 pg (25.0-35.0); MCHC 28.7 g/dL (31.0-37.0); Macrocytosis Slight; Mean Platelet Volume 7.9; Monocytes # (A) 0.4 k/uL (0-1.0); Monocytes % (A) 3 %; Neutrophils # (A) 12.8 k/uL (1.3-7.7); Neutrophils % (A) 86 %; Platelet Count 575 k/uL (150-450); RBC 4.11 m/uL (4.30-5.90)
[2024-02-03 07:57] LABS: ALT 25 U/L (4-49); AST 23 U/L (17-59); African American GFR (CKD) 79 (>60 ml/min/1.73 sqM); Albumin 4.3 g/dL (3.5-5.0); Alkaline Phosphatase 119 U/L (38-126); Blood Urea Nitrogen 25 mg/dL (9-20); Calcium 9.4 mg/dL (8.4-10.2); Chloride 90 mmol/L (98-107); Magnesium 2.1 mg/dL (1.6-2.3); Non-African American GFR(CKD) 68 (>60 ml/min/1.73 sqM); Sodium 132 mmol/L (137-145); Total Bilirubin 0.8 mg/dL (0.2-1.3); Total Protein 6.2 g/dL (6.3-8.2)
--- NOTE | 2024-02-03 08:00 | ED ---
General Adult HPI - General Chief complaint: Abdominal Pain Stated complaint: Diabetic issue Time Seen by Provider: 02/03/24 07:14 Source: patient, EMS Mode of arrival: EMS Limitations: no limitations - History of Present Illness Initial comments: Dictation was produced using [employer] dictation software. please excuse any grammatical, word or spelling errors. Chief Complaint: 28-year-old male presents to the emergency department for nausea vomiting abdominal pain History of Present Illness: Patient is a 28-year-old male he is well-known to the emergency department for frequent hospital evaluations and admissions for diabetic ketoacidosis. Patient is a known noncompliant diabetic, type I. According EMS who brought patient from home patient was just discharged. Complaining of nausea vomiting abdominal pain. Unable to obtain ROS f secondary to mental status - Related Data Home Medications Medication Instructions Recorded Confirmed Famotidine [Pepcid] 20 mg PO BID 04/29/23 01/30/24 Gabapentin 600 mg PO TID 04/29/23 01/30/24 Mirtazapine 7.5 mg PO HS 04/29/23 01/30/24 Insulin Lispro 7 units SQ AC-TID 09/17/23 01/30/24 Ferrous Sulfate [Iron (65 MG 325 mg PO DAILY 10/09/23 01/30/24 Elemental)] Omeprazole 20 mg PO BID 10/30/23 01/30/24 Acetaminophen Tab [Tylenol] 500 - 1,000 mg PO Q6H PRN 12/19/23 01/30/24 Losartan [Cozaar] 50 mg PO DAILY 01/19/24 01/30/24 Insulin Detemir [Levemir Flexpen] 30 units SQ DAILY@0700 01/30/24 01/30/24 Previous Rx's Medication Instructions Recorded Atorvastatin [Lipitor] 20 mg PO HS #30 tab 09/26/23 Allergies Allergy/AdvReac Type Severity Reaction Status Date / Time No Known Allergies Allergy Verified 02/03/24 07:23 Review of Systems ROS Statement: Those systems with pertinent positive or pertinent negative responses have been documented in the HPI. ROS Other: All systems not noted in ROS Statement are negative. Past Medical History Past Medical History: Asthma, Diabetes Mellitus, Neurologic Disorder, Skin Disorder Additional Past Medical History / Comment(s): IDDM type I, neuropathy bilateral feet, DKA, eczema. History of Any Multi-Drug Resistant Organisms: None Reported Past Surgical History: Adenoidectomy Additional Past Surgical History / Comment(s): gastritis Past Anesthesia/Blood Transfusion Reactions: No Reported Reaction Past Psychological History: Anxiety, Depression Smoking Status: Former smoker Past Alcohol Use History: None Reported Past Drug Use History: None Reported - Past Family History Mother Family Medical History: CVA/TIA Additional Family Medical History / Comment(s): TIA Father Family Medical History: Hyperlipidemia, Hypertension Additional Family Medical History / Comment(s): . General Exam - General Exam Comments Initial Comments: PHYSICAL EXAM: General Impression: Lethargic, smells of acetone HEENT: Normocephalic atraumatic, extra-ocular movements intact, pupils equal and reactive to light bilaterally, mucous membranes moist. Cardiovascular: Heart regular rate and rhythm Chest: Kussmaul's respiration Abdomen: Diffuse palpatory abdominal tenderness Musculoskeletal: Pulses present and equal in all extremities, no peripheral edema Motor: no focal deficits noted Neurological: CN II-XII grossly intact, no focal motor or sensory deficits noted Skin: Intact with no visualized rashes Psych: Normal affect and mood Limitations: no limitations Course Vital Signs 02/03/24 02/03/24 07:20 08:00 Temperature 97.4 F L 97.6 F Pulse Rate 131 H 125 H Respiratory 24 18 Rate Blood Pressure 90/56 91/56 O2 Sat by Pulse 100 100 Oximetry Medical Decision Making - Medical Decision Making Was pt. sent in by a medical professional or institution (JAS Lucero, VARIETY LATHE OPERATOR, urgent care, hospital, or fdc...) When possible be specific @ -No Did you speak to anyone other than the patient for history (EMS, parent, family, police, friend...)? What history was obtained from this source @ -HPI obtained from EMS Did you review nursing and triage notes (agree or disagree)? Why? @ -I reviewed and agree with nursing and triage notes Were old charts reviewed (outside hosp., previous admission, EMS record, old EKG, old radiological studies, urgent care reports/EKG's, fdc records)? Report findings @ -Prior charting was reviewed showing multitude of admissions for DKA Differential Diagnosis (chest pain, altered mental status, abdominal pain women, abdominal pain men, vaginal bleeding, musculoskeletal, weakness, fever, dysp cinthia, syncope, headache, dizziness, GI bleed, back pain, seizure, CVA, palpatations, mental health)? @ -Differential Abdominal Pain Men: Appendicitis, cholecystitis, diverticulosis, ischemic bowel, pancreatitis, hepatitis, UTI, gastroenteritis, AAA, incarcerated hernia, bowel obstruction, constipation, inflammatory bowel, hepatitis, peptic ulcer disease, splenic infarction, perforated viscus, testicular torsion, this is not meant to be an all-inclusive list EKG interpreted by me (3pts min.). @ -None done X-rays interpreted by me (1pt min.). @ -None done CT interpreted by me (1pt min.). @ -None done U/S interpreted by me (1pt. min.). @ -None done What testing was considered but not performed or refused? (CT, X-rays, U/S, labs)? Why? @ -None What meds were considered but not given or refused? Why? @ -None Was smoking cessation discussed for >3mins.? @ -No Were there social determinants of health that impacted care today? How? (Homelessness, low income, unemployed, alcoholism, drug addiction, transportation, low edu. Level, literacy, decrease access to med. care, [facility], rehab)? @ -No Was there de-escalation of care discussed even if they declined (Discuss DNR or withdrawal of care, Hospice)? DNR status @ -No What co-morbidities impacted this encounter? (DM, HTN, Smoking, COPD, CAD, Cancer, CVA, ARF, Chemo, Hep., AIDS, mental health diagnosis, sleep apnea, morbid obesity)? @ -None Was patient admitted / discharged? Hospital course, mention meds given and route, prescriptions, significant lab abnormalities, going to OR and other pertinent info. @ -28-year-old male presents to the emergency department for recurrent DKA. Patient is a known noncompliant insulin-dependent diabetic who is type I. Patient tachycardic and has soft blood pressure Laboratory evaluation obtained. Leukocytosis of 15, hemoglobin 11.9. Venous pH is 7.06 with pCO2 of 18 and bicarb of 5. Sodium 132, bicarb less than 5, elevated renal function, glucose of 911. Acetone is negative. Patient started on DKA protocol. Case discussed with Dr. Nettles and Dr. Chang for admission. Patient will be dispositioned to the intensive care unit due to severe metabolic derangement. Did you discuss the management of the patient with other professionals (professionals i.e. , PA, VARIETY LATHE OPERATOR, lab, RT, psych nurse, dialysis social worker, engineer third assistant, teacher, risk control officer, caser up)? Give summary @ -Yes, see above Was critical care preformed (if so, how long)? @ -Yes, 33 minutes Undiagnosed new problem with uncertain prognosis? @ -No Drug Therapy requiring intensive monitoring for toxicity (Heparin, Nitro, Insulin, Cardizem)? @ -No Were any procedures done? @ -No Diagnosis/symptom? Acute, or Chronic, or Acute on Chronic? Uncomplicated (without systemic symptoms) or Complicated (systemic symptoms)? @ -DKA Side effects of treatment? @ -No Exacerbation, Progression, or Severe Exacerbation? @ -No Poses a threat to life or bodily function? How? (Chest pain, [place], [place], pneumonia, PE, COPD, DKA, ARF, appy, cholecystitis, CVA, Diverticulitis, Homicidal, Suicidal, threat to staff... and all critical care pts) @ -yes - Lab Data Result diagrams: 02/03/24 07:25 02/03/24 07:25 Lab Results 02/03/24 02/03/24 02/03/24 Range/Units 07:25 07:25 07:25 WBC 15.0 H (3.8-10.6) k/uL RBC 4.11 L (4.30-5.90) m/uL Hgb 11.9 L (13.0-17.5) gm/dL Hct 41.4 (39.0-53.0) % MCV 100.8 H D (80.0-100.0) fL MCH 28.9 (25.0-35.0) pg MCHC 28.7 L (31.0-37.0) g/dL RDW 16.0 H (11.5-15.5) % Plt Count 575 H (150-450) k/uL MPV 7.9 Neutrophils % 86 % Lymphocytes % 11 % Monocytes % 3 % Eosinophils % 0 % Basophils % 0 % Neutrophils # 12.8 H (1.3-7.7) k/uL Lymphocytes # 1.6 (1.0-4.8) k/uL Monocytes # 0.4 (0-1.0) k/uL Eosinophils # 0.0 (0-0.7) k/uL Basophils # 0.1 (0-0.2) k/uL Hypochromasia Marked Anisocytosis Slight Macrocytosis Slight PT (10.0-12.5) sec INR (<1.2) APTT (22.0-30.0) sec VBG pH (7.31-7.41) VBG pCO2 (37-51) mmHg VBG HCO3 (24-28) mmol/L Sodium 132 L (137-145) mmol/L Potassium 6.0 H (3.5-5.1) mmol/L Chloride 90 L (98-107) mmol/L Carbon Dioxide <5 L* (22-30) mmol/L Anion Gap mmol/L BUN 25 H (9-20) mg/dL Creatinine 1.42 H (0.66-1.25) mg/dL Est GFR (CKD-EPI)AfAm 79 (>60 ml/min/1.73 sqM) Est GFR (CKD-EPI)NonAf 68 (>60 ml/min/1.73 sqM) Glucose 911 H* (74-99) mg/dL Plasma Lactic Acid Len 4.7 H* (0.7-2.0) mmol/L Calcium 9.4 (8.4-10.2) mg/dL Magnesium 2.1 (1.6-2.3) mg/dL Total Bilirubin 0.8 (0.2-1.3) mg/dL AST 23 (17-59) U/L ALT 25 (4-49) U/L Alkaline Phosphatase 119 (38-126) U/L Total Protein 6.2 L (6.3-8.2) g/dL Albumin 4.3 (3.5-5.0) g/dL Acetone, Qual Negative (Negative) 02/03/24 02/03/24 Range/Units 07:25 07:25 WBC (3.8-10.6) k/uL RBC (4.30-5.90) m/uL Hgb (13.0-17.5) gm/dL Hct (39.0-53.0) % MCV (80.0-100.0) fL MCH (25.0-35.0) pg MCHC (31.0-37.0) g/dL RDW (11.5-15.5) % Plt Count (150-450) k/uL MPV Neutrophils % % Lymphocytes % % Monocytes % % Eosinophils % % Basophils % % Neutrophils # (1.3-7.7) k/uL Lymphocytes # (1.0-4.8) k/uL Monocytes # (0-1.0) k/uL Eosinophils # (0-0.7) k/uL Basophils # (0-0.2) k/uL Hypochromasia Anisocytosis Macrocytosis PT 10.1 (10.0-12.5) sec INR 0.9 (<1.2) APTT 23.8 (22.0-30.0) sec VBG pH 7.06 L* (7.31-7.41) VBG pCO2 18 L* (37-51) mmHg VBG HCO3 5 L* (24-28) mmol/L Sodium (137-145) mmol/L Potassium (3.5-5.1) mmol/L Chloride (98-107) mmol/L Carbon Dioxide (22-30) mmol/L Anion Gap mmol/L BUN (9-20) mg/dL Creatinine (0.66-1.25) mg/dL Est GFR (CKD-EPI)AfAm (>60 ml/min/1.73 sqM) Est GFR (CKD-EPI)NonAf (>60 ml/min/1.73 sqM) Glucose (74-99) mg/dL Plasma Lactic Acid Len (0.7-2.0) mmol/L Calcium (8.4-10.2) mg/dL Magnesium (1.6-2.3) mg/dL Total Bilirubin (0.2-1.3) mg/dL AST (17-59) U/L ALT (4-49) U/L Alkaline Phosphatase (38-126) U/L Total Protein (6.3-8.2) g/dL Albumin (3.5-5.0) g/dL Acetone, Qual (Negative) Disposition Clinical Impression: DKA (diabetic ketoacidosis) Disposition: ADMITTED IP TO THIS [facility] Condition: Critical Referrals: Brown Valenzuela MD [Primary Care Provider] - 1-2 days Decision Time: 09:43
[2024-02-03 08:02] LABS: INR 0.9 (<1.2); Partial Thromboplastin Time 23.8 sec (22.0-30.0); Prothrombin Time 10.1 sec (10.0-12.5)
[2024-02-03 08:20] LABS: MCV 100.8 fL (80.0-100.0)
[2024-02-03 08:28] LABS: Carbon Dioxide <5 mmol/L (22-30)
[2024-02-03] MEDS: SODIUM CHLORIDE 0.9% 1,000 ML IV ONE (08:31)
[2024-02-03 08:32] LABS: Glucose 911 mg/dL (74-99)
[2024-02-03] MEDS ORDERED: Magnesium Replacement Protocol 1 EACH MISC MISCELLANE PRN (08:32)
[2024-02-03] MEDS ORDERED: DEXTROSE 50% SYRINGE 50 ML IVP PRN (08:32)
[2024-02-03] MEDS ORDERED: Potassium Replacement Protocol 1 EACH MISC MISCELLANE PRN (08:32)
[2024-02-03 08:49] LABS: VBG PH 7.06 (7.31-7.41)
[2024-02-03] MEDS ORDERED: NALOXONE 0.4 MG/ML 1 ML VIAL IV PRN (09:37)
[2024-02-03] MEDS: INSULIN REGULAR BOLUS (FROM DRIP BAG) IV ONE (09:48)
[2024-02-03] MEDS: INSULIN REGULAR 100 UNIT in SODIUM CHLORIDE 0.9% 100 ML IV SCH (09:52)
[2024-02-03] MEDS: SODIUM CHLORIDE 0.9% 1,000 ML IV SCH (09:53)
[2024-02-03 10:01] LABS: Glucose,Whole Blood >600 mg/dL (70-110)
[2024-02-03 11:11] LABS: Glucose,Whole Blood >600 mg/dL (70-110)
[2024-02-03 12:10] LABS: Glucose,Whole Blood 583 mg/dL (70-110)
[2024-02-03 12:56] LABS: African American GFR (CKD) 75 (>60 ml/min/1.73 sqM); Blood Urea Nitrogen 26 mg/dL (9-20); Chloride 103 mmol/L (98-107); Non-African American GFR(CKD) 65 (>60 ml/min/1.73 sqM); Phosphorus 7.9 mg/dL (2.5-4.5); Potassium 5.2 mmol/L (3.5-5.1); Sodium 141 mmol/L (137-145)
[2024-02-03 13:15] LABS: Carbon Dioxide <5 mmol/L (22-30)
[2024-02-03 13:16] LABS: Glucose 709 mg/dL (74-99)
[2024-02-03 13:17] LABS: Glucose,Whole Blood 406 mg/dL (70-110)
[2024-02-03 14:11] LABS: Glucose,Whole Blood 403 mg/dL (70-110)
--- NOTE | 2024-02-03 14:43 | P.CNPUL ---
History of Present Illness Consult date: 02/03/24 Requesting physician: Brown Valenzuela Reason for consult: other (Acute DKA) Chief complaint: Nausea vomiting and abdominal pain History of present illness: This is a 28-year-old white male with history of type 1 diabetes, recurrent and frequent admissions to the hospital with DKA because of noncompliance. Patient was brought into the ER this morning, he has been complaining of 1 day history of nausea vomiting and abdominal pain. Patient was found to be in DKA with significantly elevated blood sugar, as high as 709. Patient was noted to have severe metabolic acidosis positive ketones, abnormal creatinine of 1.47 bicarb less than 5, potassium 5.2, patient was placed on the DKA protocol, started on IV fluids and an insulin drip, this consult was initiated for possible ICU placement. Patient was seen in the ER, he is already on the insulin protocol, he is receiving IV fluids in the form of 0.9 normal saline at 200 cc/h, and the plan is to transfer to the ICU once a bed becomes available. Patient was noted to have leukocytosis with WBC count of 15 hemoglobin is 11.9. Labs were all reviewed and mostly significant for hyperglycemia and severe anion gap metabolic acidosis. Review of Systems CONSTITUTIONAL: Denies any recent significant weight loss or weight gain. EYES: Denies change in vision. EARS, NOSE, MOUTH, THROAT: Denies headaches, denies sore throat. CARDIOVASCULAR: Denies chest pain, palpitations or syncopal episodes. RESPIRATORY: Denies shortness of breath, cough, congestion or hemoptysis. GASTROINTESTINAL: As noted in HPI GENITOURINARY: Denies hematuria, denies infections. MUSKULOSKELETAL: Denies pain, denies swelling. INTEGUMENTARY: Denies rash, denies eczema. NEUROLOGICAL: Denies recent memory loss, no recent seizure activity. PSYCHIATRIC: Denies anxiety, denies depression. HEMATOLOGIC/LYMPHATIC: Denies anemia, denies enlarged lymph node ROS unobtainable: due to mental status Past Medical History Past Medical History: Asthma, Diabetes Mellitus, Neurologic Disorder, Skin Disorder Additional Past Medical History / Comment(s): IDDM type I, neuropathy bilateral feet, DKA, eczema. History of Any Multi-Drug Resistant Organisms: None Reported Past Surgical History: Adenoidectomy Additional Past Surgical History / Comment(s): gastritis Past Anesthesia/Blood Transfusion Reactions: No Reported Reaction Past Psychological History: Anxiety, Depression Smoking Status: Former smoker Past Alcohol Use History: None Reported Past Drug Use History: None Reported - Past Family History Mother Family Medical History: CVA/TIA Additional Family Medical History / Comment(s): TIA Father Family Medical History: Hyperlipidemia, Hypertension Additional Family Medical History / Comment(s): . Medications and Allergies Home Medications Medication Instructions Recorded Confirmed Type Famotidine [Pepcid] 20 mg PO BID 04/29/23 02/03/24 History Gabapentin 600 mg PO TID 04/29/23 02/03/24 History Mirtazapine 7.5 mg PO HS 04/29/23 02/03/24 History Insulin Lispro 7 units SQ AC-TID 09/17/23 02/03/24 History Atorvastatin [Lipitor] 20 mg PO HS #30 tab 09/26/23 02/03/24 Rx Ferrous Sulfate [Iron (65 MG 325 mg PO DAILY 10/09/23 02/03/24 History Elemental)] Omeprazole 20 mg PO BID 10/30/23 02/03/24 History Acetaminophen Tab [Tylenol] 500 - 1,000 mg PO Q6H PRN 12/19/23 02/03/24 History Losartan [Cozaar] 50 mg PO DAILY 01/19/24 02/03/24 History Insulin Detemir [Levemir Flexpen] 30 units SQ DAILY@0700 01/30/24 02/03/24 History Allergies Allergy/AdvReac Type Severity Reaction Status Date / Time No Known Allergies Allergy Verified 02/03/24 10:06 Physical Exam Vitals: Vital Signs Temp Pulse Resp BP Pulse Ox 02/03/24 14:07 97.6 F 113 H 16 98/53 100 02/03/24 13:50 113 H 18 102/64 99 02/03/24 13:14 114 H 20 95/61 02/03/24 12:05 97.8 F 116 H 20 95/61 99 02/03/24 11:07 97.6 F 128 H 24 95/63 100 02/03/24 10:00 124 H 24 101/55 99 02/03/24 09:32 98.0 F 123 H 26 H 110/62 100 02/03/24 09:00 126 H 24 105/57 100 02/03/24 08:00 97.6 F 125 H 18 91/56 100 02/03/24 07:20 97.4 F L 131 H 24 90/56 100 Intake and Output 02/02/24 02/03/24 02/03/24 22:59 06:59 14:59 Intake Total 23.365 Balance 23.365 Intake: Intake, IV Titration 23.365 Amount Insulin Regular 100 unit 23.365 In Sodium Chloride 0.9% 100 ml @ 0.1 UNITS/KG/HR 6.872 mls/hr IV .[id number] [facility] Rx#:[id number] Other: Weight 68.039 kg GENERAL EXAM: 27-year-old white male, lethargic, but arousable. In no distress HEAD: Normocephalic and atraumatic EYES: Normal reaction of pupils, equal size. NOSE: Clear with pink turbinates. THROAT: No erythema or exudates. NECK: No masses, no JVD. CHEST: No chest wall deformity. LUNGS: Equal air entry with no crackles, wheeze, rhonchi or dullness. On room air. CVS: S1 and S2 normal without murmur, regular rhythm. No other extra heart sounds ABDOMEN: No hepatosplenomegaly, active bowel sounds, no guarding or rigidity. SKIN: No rashes CENTRAL NERVOUS SYSTEM: Lethargic, arousable, no gross focal neurologic deficit EXTREMITIES: There is no peripheral edema, clubbing, or cyanosis. Peripheral pulses are intact. Results - Laboratory Findings CBC and BMP: 02/03/24 07:25 02/03/24 11:37 PT/INR, D-dimer PT 10.1 sec (10.0-12.5) 02/03/24 07:25 INR 0.9 (<1.2) 02/03/24 07:25 Abnormal lab findings: Abnormal Labs 02/03/24 02/03/24 02/03/24 07:25 07:25 07:25 WBC 15.0 H RBC 4.11 L Hgb 11.9 L MCV 100.8 H D MCHC 28.7 L RDW 16.0 H Plt Count 575 H Neutrophils # 12.8 H VBG pH VBG pCO2 VBG HCO3 Sodium 132 L Potassium 6.0 H Chloride 90 L Carbon Dioxide <5 L* BUN 25 H Creatinine 1.42 H Glucose 911 H* POC Glucose (mg/dL) Plasma Lactic Acid Len 4.7 H* Phosphorus Total Protein 6.2 L 02/03/24 02/03/24 02/03/24 07:25 09:59 11:08 WBC RBC Hgb MCV MCHC RDW Plt Count Neutrophils # VBG pH 7.06 L* VBG pCO2 18 L* VBG HCO3 5 L* Sodium Potassium Chloride Carbon Dioxide BUN Creatinine Glucose POC Glucose (mg/dL) >600 H* >600 H* Plasma Lactic Acid Len Phosphorus Total Protein 02/03/24 02/03/24 02/03/24 11:37 11:37 12:07 WBC RBC Hgb MCV MCHC RDW Plt Count Neutrophils # VBG pH VBG pCO2 VBG HCO3 Sodium Potassium 5.2 H Chloride Carbon Dioxide <5 L* BUN 26 H Creatinine 1.47 H Glucose 709 H* POC Glucose (mg/dL) 583 H* Plasma Lactic Acid Len 3.6 H* Phosphorus 7.9 H Total Protein 02/03/24 02/03/24 13:16 14:09 WBC RBC Hgb MCV MCHC RDW Plt Count Neutrophils # VBG pH VBG pCO2 VBG HCO3 Sodium Potassium Chloride Carbon Dioxide BUN Creatinine Glucose POC Glucose (mg/dL) 406 H 403 H Plasma Lactic Acid Len Phosphorus Total Protein Assessment and Plan Assessment: Impression Acute diabetic ketoacidosis, likely secondary to medication noncompliance. Patient has had numerous episodes of DKA Severe anion gap metabolic acidosis, secondary to above Severe dehydration Type 1 diabetes mellitus, with poor medication compliance. Acute leukocytosis, likely reactive to DKA Diabetic neuropathy History of major depression Chronic marijuana use Chronic ongoing nicotine dependence Recommendation: Will admit the patient to the ICU Continue DKA protocol Continue to monitor blood sugars and electrolytes and address accordingly Patient could be downgraded once DKA is resolved. Will continue to follow Time with Patient: Greater than 30
[2024-02-03] MEDS: METOCLOPRAMIDE 5 MG/ML 2 ML VIAL IVP PRN (14:51)
[2024-02-03 15:08] LABS: Glucose,Whole Blood 230 mg/dL (70-110)
[2024-02-03] MEDS: D5-0.45% NACL WITH KCL 20MEQ/L 1,000 ML IV SCH (15:09)
[2024-02-03 16:10] LABS: Glucose,Whole Blood 186 mg/dL (70-110)
[2024-02-03 16:36] LABS: African American GFR (CKD) >90 (>60 ml/min/1.73 sqM); Anion Gap 24 mmol/L; Blood Urea Nitrogen 23 mg/dL (9-20); Carbon Dioxide 12 mmol/L (22-30); Chloride 111 mmol/L (98-107); Glucose 207 mg/dL (74-99); Non-African American GFR(CKD) >90 (>60 ml/min/1.73 sqM); Phosphorus 3.1 mg/dL (2.5-4.5); Potassium 4.5 mmol/L (3.5-5.1); Sodium 147 mmol/L (137-145)
[2024-02-03 17:14] LABS: Glucose,Whole Blood 179 mg/dL (70-110)
[2024-02-03 18:17] LABS: Glucose,Whole Blood 135 mg/dL (70-110)
[2024-02-03 19:11] LABS: Glucose,Whole Blood 132 mg/dL (70-110)
[2024-02-03 20:17] LABS: Glucose,Whole Blood 131 mg/dL (70-110)
[2024-02-03 21:19] LABS: African American GFR (CKD) >90 (>60 ml/min/1.73 sqM); Anion Gap 14 mmol/L; Blood Urea Nitrogen 21 mg/dL (9-20); Carbon Dioxide 17 mmol/L (22-30); Chloride 111 mmol/L (98-107); Glucose 145 mg/dL (74-99); Non-African American GFR(CKD) >90 (>60 ml/min/1.73 sqM); Potassium 4.3 mmol/L (3.5-5.1); Sodium 142 mmol/L (137-145)
[2024-02-03] MEDS: FAMOTIDINE 20 MG TAB PO SCH (22:24)
[2024-02-03] MEDS: PANTOPRAZOLE 40 MG TABLET PO SCH (22:24)
[2024-02-03 22:30] LABS: Glucose,Whole Blood 180 mg/dL (70-110)
--- NOTE | 2024-02-03 23:10 | HP ---
HISTORY AND PHYSICAL CHIEF COMPLAINT: DKA. HISTORY OF PRESENT ILLNESS: This is another recent admission for this young man who just went home the other day. He is in and out of the hospital about every 3 or 4 days now. He goes home, does not take his insulin and comes back. He is depressed. He has been seen by Psychiatry and he refuses to follow their treatment plan and they will not see him any longer. REVIEW OF SYSTEMS: Not obtainable at this time. PAST MEDICAL HISTORY, FAMILY HISTORY, AND PERSONAL AND SOCIAL HISTORIES: Unchanged. PHYSICAL EXAMINATION: HEART: He does have sinus tachycardia. Cardiac exam is normal. GENERAL: He is dehydrated. Mucous membranes are dry. CHEST: Clear. ABDOMEN: Soft and nontender. EXTREMITIES: Normal. NEUROLOGICAL: He is intact except for lethargy. DIAGNOSES: He has been admitted to the hospital with diagnoses, 1. DKA. 2. Uncontrolled type 1 insulin-dependent diabetes mellitus. 3. Depression. 4. Dehydration. 5. History of anemia. PLAN: 1. Bed rest. 2. IV fluids. 3. Management of his DKA. MMODL / IJN: [id number] /
[2024-02-03 23:36] LABS: Glucose,Whole Blood 210 mg/dL (70-110)
[2024-02-04 00:31] LABS: Glucose,Whole Blood 229 mg/dL (70-110)
[2024-02-04 00:41] LABS: African American GFR (CKD) >90 (>60 ml/min/1.73 sqM); Anion Gap 16 mmol/L; Blood Urea Nitrogen 19 mg/dL (9-20); Carbon Dioxide 14 mmol/L (22-30); Chloride 108 mmol/L (98-107); Glucose 241 mg/dL (74-99); Non-African American GFR(CKD) >90 (>60 ml/min/1.73 sqM); Phosphorus 2.9 mg/dL (2.5-4.5); Potassium 4.7 mmol/L (3.5-5.1); Sodium 138 mmol/L (137-145)
[2024-02-04 01:20] LABS: Glucose,Whole Blood 229 mg/dL (70-110)
[2024-02-04 02:43] LABS: Glucose,Whole Blood 250 mg/dL (70-110)
[2024-02-04 03:53] LABS: Glucose,Whole Blood 268 mg/dL (70-110)
[2024-02-04 04:55] LABS: Glucose,Whole Blood 269 mg/dL (70-110)
[2024-02-04 05:54] LABS: Glucose,Whole Blood 236 mg/dL (70-110)
[2024-02-04 06:35] LABS: African American GFR (CKD) >90 (>60 ml/min/1.73 sqM); Anion Gap 15 mmol/L; Blood Urea Nitrogen 16 mg/dL (9-20); Carbon Dioxide 15 mmol/L (22-30); Chloride 108 mmol/L (98-107); Glucose 220 mg/dL (74-99); Non-African American GFR(CKD) >90 (>60 ml/min/1.73 sqM); Phosphorus 2.3 mg/dL (2.5-4.5); Potassium 4.5 mmol/L (3.5-5.1); Sodium 138 mmol/L (137-145)
[2024-02-04] MEDS: INSULIN DETEMIR (LEVEMIR) 100 UNIT/ML SYR SQ SCH (07:19)
[2024-02-04 07:25] LABS: Glucose,Whole Blood 189 mg/dL (70-110)
[2024-02-04 08:05] LABS: Glucose,Whole Blood 172 mg/dL (70-110)
[2024-02-04 09:14] LABS: Glucose,Whole Blood 154 mg/dL (70-110)
[2024-02-04 10:13] LABS: Glucose,Whole Blood 168 mg/dL (70-110)
[2024-02-04 11:07] LABS: African American GFR (CKD) >90 (>60 ml/min/1.73 sqM); Anion Gap 9 mmol/L; Blood Urea Nitrogen 15 mg/dL (9-20); Carbon Dioxide 22 mmol/L (22-30); Chloride 106 mmol/L (98-107); Glucose 146 mg/dL (74-99); Non-African American GFR(CKD) >90 (>60 ml/min/1.73 sqM); Phosphorus 2.1 mg/dL (2.5-4.5); Sodium 137 mmol/L (137-145)
[2024-02-04 11:14] LABS: Glucose,Whole Blood 130 mg/dL (70-110)
[2024-02-04 12:00] LABS: Glucose,Whole Blood 125 mg/dL (70-110)
--- NOTE | 2024-02-04 13:14 | P.PN ---
Subjective Progress Note Date: 02/04/24 This is a 28-year-old white male with history of type 1 diabetes, recurrent and frequent admissions to the hospital with DKA because of noncompliance. Patient was brought into the ER this morning, he has been complaining of 1 day history of nausea vomiting and abdominal pain. Patient was found to be in DKA with significantly elevated blood sugar, as high as 709. Patient was noted to have severe metabolic acidosis positive ketones, abnormal creatinine of 1.47 bicarb less than 5, potassium 5.2, patient was placed on the DKA protocol, started on IV fluids and an insulin drip, this consult was initiated for possible ICU placement. Patient was seen in the ER, he is already on the insulin protocol, he is receiving IV fluids in the form of 0.9 normal saline at 200 cc/h, and the plan is to transfer to the ICU once a bed becomes available. Patient was noted to have leukocytosis with WBC count of 15 hemoglobin is 11.9. Labs were all reviewed and mostly significant for hyperglycemia and severe anion gap metabolic acidosis. The patient is seen today February 04, 2024 in follow-up in the emergency department. He is awake and alert in no acute distress. He is maintaining good O2 saturations in the 90s on room air. He is afebrile. Hemodynamically stable. Sodium 137. Potassium 4.0. Bicarb 22. Anion gap 9. BUN 15. Creatinine 0.61. Glucose 146. He has been transitioned to Levemir. He remains on Protonix. Objective - Vital Signs Vital signs: Vital Signs Temp 97.8 F 02/03/24 18:07 Pulse 98 02/04/24 10:20 Resp 19 02/04/24 10:20 BP 121/86 02/04/24 10:20 Pulse Ox 99 02/04/24 10:20 FiO2 Intake & Output 02/03/24 02/04/24 02/04/24 18:59 06:59 18:59 Intake Total 57.382 17.145 16.224 Output Total 2160 650 Balance -2102.618 17.145 -633.776 Weight 68.039 kg Intake: Intake, IV Titration 57.382 17.145 16.224 Amount Insulin Regular 100 unit 57.382 17.145 16.224 In Sodium Chloride 0.9% 100 ml @ 0.1 UNITS/KG/HR 6.872 mls/hr IV .[id number] [facility] Rx#:[id number] Output: Urine 2160 650 - Exam GENERAL EXAM: Alert, 28-year-old male patient, on room air, comfortable in no apparent distress. HEAD: Normocephalic. EYES: Normal reaction of pupils, equal size. NOSE: Clear with pink turbinates. THROAT: No erythema or exudates. NECK: No masses, no JVD. CHEST: No chest wall deformity. LUNGS: Equal air entry with no crackles, wheeze, rhonchi or dullness. CVS: S1 and S2 normal with no audible murmur, regular rhythm. ABDOMEN: No hepatosplenomegaly, normal bowel sounds, no guarding or rigidity. SPINE: No scoliosis or deformity SKIN: No rashes CENTRAL NERVOUS SYSTEM: No focal deficits, tone is normal in all 4 extremities. EXTREMITIES: There is no peripheral edema. No clubbing, no cyanosis. Peripheral pulses are intact. - Labs CBC & Chem 7: 02/03/24 07:25 02/04/24 10:25 Labs: Abnormal Lab Results - Last 24 Hours (Table) 02/03/24 02/03/24 02/03/24 Range/Units 11:37 13:16 14:09 Sodium (137-145) mmol/L Potassium 5.2 H (3.5-5.1) mmol/L Chloride (98-107) mmol/L Carbon Dioxide <5 L* (22-30) mmol/L BUN 26 H (9-20) mg/dL Creatinine 1.47 H (0.66-1.25) mg/dL Glucose 709 H* (74-99) mg/dL POC Glucose (mg/dL) 406 H 403 H (70-110) mg/dL Plasma Lactic Acid Len (0.7-2.0) mmol/L Phosphorus 7.9 H (2.5-4.5) mg/dL 02/03/24 02/03/24 02/03/24 Range/Units 15:00 15:40 15:40 Sodium 147 H (137-145) mmol/L Potassium (3.5-5.1) mmol/L Chloride 111 H (98-107) mmol/L Carbon Dioxide 12 L (22-30) mmol/L BUN 23 H (9-20) mg/dL Creatinine (0.66-1.25) mg/dL Glucose 207 H (74-99) mg/dL POC Glucose (mg/dL) 230 H (70-110) mg/dL Plasma Lactic Acid Len 3.9 H* (0.7-2.0) mmol/L Phosphorus (2.5-4.5) mg/dL 02/03/24 02/03/24 02/03/24 Range/Units 16:09 17:09 18:12 Sodium (137-145) mmol/L Potassium (3.5-5.1) mmol/L Chloride (98-107) mmol/L Carbon Dioxide (22-30) mmol/L BUN (9-20) mg/dL Creatinine (0.66-1.25) mg/dL Glucose (74-99) mg/dL POC Glucose (mg/dL) 186 H 179 H 135 H (70-110) mg/dL Plasma Lactic Acid Len (0.7-2.0) mmol/L Phosphorus (2.5-4.5) mg/dL 02/03/24 02/03/24 02/03/24 Range/Units 19:08 20:14 20:38 Sodium (137-145) mmol/L Potassium (3.5-5.1) mmol/L Chloride 111 H (98-107) mmol/L Carbon Dioxide 17 L (22-30) mmol/L BUN 21 H (9-20) mg/dL Creatinine (0.66-1.25) mg/dL Glucose 145 H (74-99) mg/dL POC Glucose (mg/dL) 132 H 131 H (70-110) mg/dL Plasma Lactic Acid Len (0.7-2.0) mmol/L Phosphorus 2.0 L (2.5-4.5) mg/dL 02/03/24 02/03/24 02/04/24 Range/Units 22:26 23:31 00:11 Sodium (137-145) mmol/L Potassium (3.5-5.1) mmol/L Chloride 108 H (98-107) mmol/L Carbon Dioxide 14 L (22-30) mmol/L BUN (9-20) mg/dL Creatinine (0.66-1.25) mg/dL Glucose 241 H (74-99) mg/dL POC Glucose (mg/dL) 180 H 210 H (70-110) mg/dL Plasma Lactic Acid Len (0.7-2.0) mmol/L Phosphorus (2.5-4.5) mg/dL 02/04/24 02/04/24 02/04/24 Range/Units 00:23 01:19 02:41 Sodium (137-145) mmol/L Potassium (3.5-5.1) mmol/L Chloride (98-107) mmol/L Carbon Dioxide (22-30) mmol/L BUN (9-20) mg/dL Creatinine (0.66-1.25) mg/dL Glucose (74-99) mg/dL POC Glucose (mg/dL) 229 H 229 H 250 H (70-110) mg/dL Plasma Lactic Acid Len (0.7-2.0) mmol/L Phosphorus (2.5-4.5) mg/dL 02/04/24 02/04/24 02/04/24 Range/Units 03:50 04:49 05:52 Sodium (137-145) mmol/L Potassium (3.5-5.1) mmol/L Chloride (98-107) mmol/L Carbon Dioxide (22-30) mmol/L BUN (9-20) mg/dL Creatinine (0.66-1.25) mg/dL Glucose (74-99) mg/dL POC Glucose (mg/dL) 268 H 269 H 236 H (70-110) mg/dL Plasma Lactic Acid Len (0.7-2.0) mmol/L Phosphorus (2.5-4.5) mg/dL 02/04/24 02/04/24 02/04/24 Range/Units 05:53 07:14 08:04 Sodium (137-145) mmol/L Potassium (3.5-5.1) mmol/L Chloride 108 H (98-107) mmol/L Carbon Dioxide 15 L (22-30) mmol/L BUN (9-20) mg/dL Creatinine (0.66-1.25) mg/dL Glucose 220 H (74-99) mg/dL POC Glucose (mg/dL) 189 H 172 H (70-110) mg/dL Plasma Lactic Acid Len (0.7-2.0) mmol/L Phosphorus 2.3 L (2.5-4.5) mg/dL 02/04/24 02/04/24 02/04/24 Range/Units 09:13 10:08 10:25 Sodium (137-145) mmol/L Potassium (3.5-5.1) mmol/L Chloride (98-107) mmol/L Carbon Dioxide (22-30) mmol/L BUN (9-20) mg/dL Creatinine 0.61 L (0.66-1.25) mg/dL Glucose 146 H (74-99) mg/dL POC Glucose (mg/dL) 154 H 168 H (70-110) mg/dL Plasma Lactic Acid Len (0.7-2.0) mmol/L Phosphorus 2.1 L (2.5-4.5) mg/dL 02/04/24 02/04/24 Range/Units 11:13 11:55 Sodium (137-145) mmol/L Potassium (3.5-5.1) mmol/L Chloride (98-107) mmol/L Carbon Dioxide (22-30) mmol/L BUN (9-20) mg/dL Creatinine (0.66-1.25) mg/dL Glucose (74-99) mg/dL POC Glucose (mg/dL) 130 H 125 H (70-110) mg/dL Plasma Lactic Acid Len (0.7-2.0) mmol/L Phosphorus (2.5-4.5) mg/dL Assessment and Plan Assessment: Acute diabetic ketoacidosis, likely secondary to medication noncompliance. Patient has had numerous episodes of DKA Severe anion gap metabolic acidosis, secondary to above Severe dehydration Type 1 diabetes mellitus, with poor medication compliance. Acute leukocytosis, likely reactive to DKA Diabetic neuropathy History of major depression Chronic marijuana use Chronic ongoing nicotine dependence Plan: The patient was seen and evaluated Currently stable and on room air Transitioned to Levemir No need for ICU admission Again educated regarding the importance of medication compliance This patient was seen independently by the pulmonary nurse practitioner addressing pulmonary/critical care issues I have personally seen and examined the patient, performed the documentation and the assessment and plan as written. Number of minutes spent on the visit: 23.
[2024-02-04] MEDS ORDERED: DEXTROSE 50% SYRINGE 50 ML IVP PRN ×2 (16:07)
[2024-02-04] MEDS: DEXTROSE 50% SYRINGE 50 ML IVP PRN (16:23)
[2024-02-04 16:26] LABS: Glucose,Whole Blood 45 mg/dL (70-110)
[2024-02-04 16:39] LABS: Glucose,Whole Blood 137 mg/dL (70-110)
[2024-02-04] MEDS ORDERED: ONDANSETRON 4 MG/2 ML VIAL IVP PRN (17:01)
[2024-02-04] MEDS: INSULIN ASPART (NovoLOG) 100 UNIT/ML VIAL SQ SCH (17:20)
[2024-02-04 17:59] LABS: Glucose,Whole Blood 95 mg/dL (70-110)
[2024-02-04 20:20] LABS: Glucose,Whole Blood 67 mg/dL (70-110)
[2024-02-04 21:02] LABS: Glucose,Whole Blood 89 mg/dL (70-110)
[2024-02-05] LABS: Glucose,Whole Blood 70 mg/dL (70-110)
[2024-02-05 03:22] LABS: Glucose,Whole Blood 109 mg/dL (70-110)
[2024-02-05 06:10] LABS: Glucose,Whole Blood 98 mg/dL (70-110)
[2024-02-05 11:29] LABS: Glucose,Whole Blood 76 mg/dL (70-110)
--- NOTE | 2024-02-05 12:01 | P.PN ---
Subjective Progress Note Date: 02/05/24 This is a 28-year-old white male with history of type 1 diabetes, recurrent and frequent admissions to the hospital with DKA because of noncompliance. Patient was brought into the ER this morning, he has been complaining of 1 day history of nausea vomiting and abdominal pain. Patient was found to be in DKA with significantly elevated blood sugar, as high as 709. Patient was noted to have severe metabolic acidosis positive ketones, abnormal creatinine of 1.47 bicarb less than 5, potassium 5.2, patient was placed on the DKA protocol, started on IV fluids and an insulin drip, this consult was initiated for possible ICU placement. Patient was seen in the ER, he is already on the insulin protocol, he is receiving IV fluids in the form of 0.9 normal saline at 200 cc/h, and the plan is to transfer to the ICU once a bed becomes available. Patient was noted to have leukocytosis with WBC count of 15 hemoglobin is 11.9. Labs were all reviewed and mostly significant for hyperglycemia and severe anion gap metabolic acidosis. The patient is seen today February 04, 2024 in follow-up in the emergency department. He is awake and alert in no acute distress. He is maintaining good O2 saturations in the 90s on room air. He is afebrile. Hemodynamically stable. Sodium 137. Potassium 4.0. Bicarb 22. Anion gap 9. BUN 15. Creatinine 0.61. Glucose 146. He has been transitioned to Levemir. He remains on Protonix. The patient is seen today February 05, 2024 in follow-up on the selective care unit. He is currently resting in bed. Awake and alert in no acute distress. Maintaining O2 saturations in the 90s on room air. He has been transitioned to Levemir 30 units daily along with NovoLog sliding scale. He remains on Protonix and Reglan. Zofran as needed. Glucose 76. Objective - Vital Signs Vital signs: Vital Signs Temp 98.1 F 02/05/24 08:42 Pulse 85 02/05/24 11:26 Resp 18 02/05/24 11:26 BP 117/80 02/05/24 11:26 Pulse Ox 99 02/05/24 11:26 FiO2 Intake & Output 02/04/24 02/05/24 02/05/24 18:59 06:59 18:59 Intake Total 1093.083 490 960 Output Total 900 Balance 193.083 490 960 Weight 68.039 kg 71.1 kg Intake: IV 10 Invasive Line 1 10 Intake, IV Titration 17.083 Amount Insulin Regular 100 unit 17.083 In Sodium Chloride 0.9% 100 ml @ 0.1 UNITS/KG/HR 6.872 mls/hr IV .[id number] Rx#:[id number] Oral 1076 480 960 Output: Urine 900 Other: Voiding Method Toilet Toilet # Voids 2 - Exam GENERAL EXAM: Alert, thin, 28-year-old male patient, resting in bed, on room air, comfortable in no apparent distress. HEAD: Normocephalic. EYES: Normal reaction of pupils, equal size. NOSE: Clear with pink turbinates. THROAT: No erythema or exudates. NECK: No masses, no JVD. CHEST: No chest wall deformity. LUNGS: Equal air entry with no crackles, wheeze, rhonchi or dullness. CVS: S1 and S2 normal with no audible murmur, regular rhythm. ABDOMEN: No hepatosplenomegaly, normal bowel sounds, no guarding or rigidity. SPINE: No scoliosis or deformity SKIN: No rashes CENTRAL NERVOUS SYSTEM: No focal deficits, tone is normal in all 4 extremities. EXTREMITIES: There is no peripheral edema. No clubbing, no cyanosis. Peripheral pulses are intact. - Labs CBC & Chem 7: 02/03/24 07:25 02/04/24 10:25 Labs: Abnormal Lab Results - Last 24 Hours (Table) 02/04/24 02/04/24 02/04/24 Range/Units 11:55 12:00 16:19 POC Glucose (mg/dL) 125 H 45 L* (70-110) mg/dL Hemoglobin A1c 11.5 H (<=6.0) % 02/04/24 02/04/24 Range/Units 16:37 20:19 POC Glucose (mg/dL) 137 H 67 L (70-110) mg/dL Hemoglobin A1c (<=6.0) % Assessment and Plan Assessment: Acute diabetic ketoacidosis, likely secondary to medication noncompliance. Recovered. Patient has had numerous episodes of DKA Severe anion gap metabolic acidosis, secondary to above, recovered Severe dehydration, improved Type 1 diabetes mellitus, with poor medication compliance Acute leukocytosis, likely reactive to DKA Diabetic neuropathy History of major depression Chronic marijuana use Chronic ongoing nicotine dependence Plan: The patient was seen and evaluated Currently stable and on room air Transitioned to Levemir No need for ICU admission Cleared for discharge This patient was seen independently by the pulmonary nurse practitioner addressing pulmonary/critical care issues I have personally seen and examined the patient, performed the documentation and the assessment and plan as written. Number of minutes spent on the visit: 24.
[2024-02-05 14:37] VITALS: BMI 19.5
[2024-02-05 16:53] LABS: Glucose,Whole Blood 69 mg/dL (70-110)
[2024-02-05 20:26] LABS: Glucose,Whole Blood 160 mg/dL (70-110)
[2024-02-06 03:38] LABS: Glucose,Whole Blood 102 mg/dL (70-110)
[2024-02-06 06:07] LABS: Glucose,Whole Blood 110 mg/dL (70-110)
[2024-02-06 09:02] VITALS: TEMP 98.1
--- NOTE | 2024-02-06 11:27 | CDI ---
Documentation Clarification Form Date: 02/06/2024 10:40:51 AM From: Luanne Bacon RN CCDS Phone: [phone] Admit Date: 02/03/2024 09:38:00 AM Patient Name: Raul Marquez Visit Number: [id number] Discharge Date: ATTENTION: The Clinical Documentation Specialists (CDI) and [facility] Coding Staff appreciate your assistance in clarifying documentation. Please respond to the clarification below the line at the bottom and electronically sign. The CDI & [facility] Coding staff will review the response and follow-up if needed. Please note: Queries are made part of the Legal Health Record. If you have any questions, please contact the author of this message via ITS. Doctor Jenna Montoya The patient has a creatinine of 1.42, Wbc 15 and Pulse rate of 131 and respiratory of 24, ED note, 02/02. Based on this information and the findings below, is there an additional diagnosis that is clinically appropriate for this patient? History/Risk Factors: 28 year old male presents to the ED with abdominal pain, nausea and vomiting. Patient found to be in DKA with elevated blood sugar as high as 709.Patient was noted to have severe metabolic acidosis positive ketones, abnormal creatinine 1.47 and bicarb less than 5, potassium 5.2 patient was placed on DKA protocol. Certified Green Building Engineer consult, 02/02. Clinical Indicators: Current: 02/02 BUN 25; Cr 1.42; GFR 68 Historical: 12/18 BUN 26 ; Cr 0.88; GFR>90 10/29 BUN 17; Cr 0.67: GFR>90 Labs: 02/02: Glucose 911; Lactic Acid 4.7; NA 132; K 6.0; Chl 90; Blood Gas VBG ph 7.06, pCo2 18, HCO3 5 Treatment: 02/02 0.9ns 2L IV Bolus; Humulin R bolus from Bag 6.8units IV x 1; 02/02 02/03 Insulin Human Regular 101mls @6.872mls/hr; 02/02 -02/02 0.9NS 1,000mls @200mls/hr IV; 02/02 02/03 D5% 1/2ns Kcl20 meq 1,000mls @ 150mls/hr; 02/03 Novolog achs; 02/03 Levemir 30 unit sq daily. Is there an additional diagnosis that is clinically appropriate for this patient? [ ] Non-infectious SIRS causing SHANTEL [ x ] Non-infectious SIRS not causing SHANTEL [ ] No additional diagnosis/not clinically significant [ ] Other, please specify [ ] Unable to determine SIRS Criteria: 2 or more of the following may indicate SIRS Temperature < 96.8F (36C) or > 101.0F (38.3C) Heart Rate > 90 bpm Respiratory Rate > 20 breaths/min or PaCO2 < 32 mmHg White Blood Cell Count > 12,000 or < 4,000 cells/mm3 or > 10% bands (Template Last Revised: May 2023) MTDD
[2024-02-06 11:31] LABS: Glucose,Whole Blood 142 mg/dL (70-110)
[2024-02-06 11:51] VITALS: BP 118/85; PULSE 75; RESP 16
--- NOTE | 2024-02-06 12:43 | P.PN ---
Subjective Progress Note Date: 02/06/24 This is a 28-year-old white male with history of type 1 diabetes, recurrent and frequent admissions to the hospital with DKA because of noncompliance. Patient was brought into the ER this morning, he has been complaining of 1 day history of nausea vomiting and abdominal pain. Patient was found to be in DKA with significantly elevated blood sugar, as high as 709. Patient was noted to have severe metabolic acidosis positive ketones, abnormal creatinine of 1.47 bicarb less than 5, potassium 5.2, patient was placed on the DKA protocol, started on IV fluids and an insulin drip, this consult was initiated for possible ICU placement. Patient was seen in the ER, he is already on the insulin protocol, he is receiving IV fluids in the form of 0.9 normal saline at 200 cc/h, and the plan is to transfer to the ICU once a bed becomes available. Patient was noted to have leukocytosis with WBC count of 15 hemoglobin is 11.9. Labs were all reviewed and mostly significant for hyperglycemia and severe anion gap metabolic acidosis. The patient is seen today February 04, 2024 in follow-up in the emergency department. He is awake and alert in no acute distress. He is maintaining good O2 saturations in the 90s on room air. He is afebrile. Hemodynamically stable. Sodium 137. Potassium 4.0. Bicarb 22. Anion gap 9. BUN 15. Creatinine 0.61. Glucose 146. He has been transitioned to Levemir. He remains on Protonix. The patient is seen today February 05, 2024 in follow-up on the selective care unit. He is currently resting in bed. Awake and alert in no acute distress. Maintaining O2 saturations in the 90s on room air. He has been transitioned to Levemir 30 units daily along with NovoLog sliding scale. He remains on Protonix and Reglan. Zofran as needed. Glucose 76. Patient is seen today February 06, 2024 in follow-up on the selective care unit. He is awake and alert in no acute distress. Resting comfortably in bed. Denies any shortness of breath, cough or congestion. His main complaint is of fatigue. He is maintaining good O2 saturations in the 90s on room air. He has been transition to Levemir and NovoLog sliding scale. No further nausea and vomiting. Glucose 142. Objective - Vital Signs Vital signs: Vital Signs Temp 98.1 F 02/06/24 09:01 Pulse 75 02/06/24 11:51 Resp 16 02/06/24 11:51 BP 118/85 02/06/24 11:51 Pulse Ox 98 02/06/24 11:51 FiO2 Intake & Output 02/05/24 02/06/24 02/06/24 18:59 06:59 18:59 Intake Total 2808 500 10 Balance 2808 500 10 Weight 71.1 kg 72.1 kg Intake: IV 20 10 Invasive Line 1 20 10 Oral 2808 480 Other: Voiding Method Toilet Toilet # Voids 3 2 2 # Bowel Movements 1 - Exam GENERAL EXAM: Alert, thin, 28-year-old male patient, on room air, in no apparent distress. HEAD: Normocephalic. EYES: Normal reaction of pupils, equal size. NOSE: Clear with pink turbinates. THROAT: No erythema or exudates. NECK: No masses, no JVD. CHEST: No chest wall deformity. LUNGS: Equal air entry with no crackles, wheeze, rhonchi or dullness. CVS: S1 and S2 normal with no audible murmur, regular rhythm. ABDOMEN: No hepatosplenomegaly, normal bowel sounds, no guarding or rigidity. SPINE: No scoliosis or deformity SKIN: No rashes CENTRAL NERVOUS SYSTEM: No focal deficits, tone is normal in all 4 extremities. EXTREMITIES: There is no peripheral edema. No clubbing, no cyanosis. Peripheral pulses are intact. - Labs CBC & Chem 7: 02/03/24 07:25 02/04/24 10:25 Labs: Abnormal Lab Results - Last 24 Hours (Table) 02/05/24 02/05/24 02/06/24 Range/Units 16:52 20:24 11:29 POC Glucose (mg/dL) 69 L 160 H 142 H (70-110) mg/dL Assessment and Plan Assessment: Acute diabetic ketoacidosis, likely secondary to medication noncompliance. Recovered. Patient has had numerous episodes of DKA Severe anion gap metabolic acidosis, secondary to above, recovered Severe dehydration, improved Type 1 diabetes mellitus, with poor medication compliance Acute leukocytosis, likely reactive to DKA Diabetic neuropathy History of major depression Chronic marijuana use Chronic ongoing nicotine dependence Plan: The patient was seen and evaluated Currently stable and on room air Transitioned to Levemir Cleared for discharge I have personally seen and examined the patient, performed the documentation and the assessment and plan as written. Number of minutes spent on the visit: 10.
--- NOTE | 2024-02-06 20:37 | PN ---
PROGRESS NOTE DATE OF SERVICE: 02/05/2024 CHIEF COMPLAINT: DKA. HISTORY OF PRESENT ILLNESS: This gentleman is still nauseated, but sugars are coming down. Blood pressure is under good control. PHYSICAL EXAMINATION: CHEST: Clear. CARDIAC: Normal. ABDOMEN: Soft, nontender. IMPRESSION: 1. Diabetic ketoacidosis. 2. Dehydration. 3. Nausea and vomiting. 4. Malnutrition. PLAN: Hold inpatient 1 more day. MMODL / IJN: [id number] /
--- NOTE | 2024-02-06 22:31 | DS ---
DISCHARGE SUMMARY CHIEF COMPLAINT: Diabetic ketoacidosis. HISTORY OF PRESENT ILLNESS AND PHYSICAL EXAMINATION: Details of this man's history and physical can be found in the initial workup. COURSE IN THE HOSPITAL: After admission, he was placed on bedrest on intravenous fluids and DKA protocol. As usual, his blood sugars came down after several days after which his nausea and vomiting stopped and his diet was advanced. He was doing well enough that he felt he could go home on the . He will go home on his usual medications, but he probably does not take anything. FINAL DIAGNOSES: 1. Diabetic ketoacidosis. 2. Dehydration. 3. Depression. 4. Gastroparesis. OPERATIONS: None. CONSULTATION: None. He is improved. MMODL / IJN: [id number] /
--- NOTE | 2024-02-07 01:22 | PN ---
PROGRESS NOTE DATE OF SERVICE: 02/04/2024 CHIEF COMPLAINT: DKA. HISTORY OF PRESENT ILLNESS: This gentleman is still lethargic and still vomiting. Blood sugars are coming down. PHYSICAL EXAMINATION: GENERAL: He is still dehydrated. He is a bit more lethargic. CHEST: Clear. CARDIAC: Normal. PLAN: His management will continue until he is awake and alert and vomiting is stopped. MMODL / IJN: [id number] /
== END 2024-02-06 13:22 | disposition home or self-care (01) | DRG 638 ==
LOC: EC 07:12 → 2SICU 09:38 → 3SCARD 22:37
PROVIDERS: ADMIT Family Medicine; ATTEND Family Medicine
DX: E10.10 Type 1 diabetes mellitus with ketoacidosis without coma (principal); R65.10 Systemic inflammatory response syndrome (SIRS) of non-infectious origin without acute organ dysfunction; E10.43 Type 1 diabetes mellitus with diabetic autonomic (poly)neuropathy; K31.84 Gastroparesis; J45.909 Unspecified asthma, uncomplicated; E10.40 Type 1 diabetes mellitus with diabetic neuropathy, unspecified; L30.9 Dermatitis, unspecified; F32.9 Major depressive disorder, single episode, unspecified; E86.0 Dehydration; D72.829 Elevated white blood cell count, unspecified; F41.9 Anxiety disorder, unspecified; T38.3X6A Underdosing of insulin and oral hypoglycemic [antidiabetic] drugs, initial encounter; Z91.128 Patient's intentional underdosing of medication regimen for other reason; F17.200 Nicotine dependence, unspecified, uncomplicated; F12.90 Cannabis use, unspecified, uncomplicated; Z79.4 Long term (current) use of insulin; Z79.899 Other long term (current) drug therapy; Z91.198 Patient's noncompliance with other medical treatment and regimen for other reason; Z71.3 Dietary counseling and surveillance
CPT/HCPCS: 36415; 80051; 80053; 82009; 82565; 82803; 82947; 83036; 83605; 83735; 84100; 84520; 85025; 85610; 85730; 96361; 96365; 96366; 96375; 96376; 99291

== ENCOUNTER 2024-02-08 08:17 | Inpatient (IN) | payer OTHER ==
[2024-02-08 08:43] LABS: Glucose,Whole Blood >600 mg/dL (70-110)
[2024-02-08 09:04] LABS: Anisocytosis Slight; Basophils # (A) 0.1 k/uL (0-0.2); Basophils % (A) 1 %; Eosinophils % (A) 0 %; HCT 43.2 % (39.0-53.0); HGB 12.8 gm/dL (13.0-17.5); Hypochromasia Marked; Lymphocytes # (A) 1.7 k/uL (1.0-4.8); Lymphocytes % (A) 17 %; MCH 29.4 pg (25.0-35.0); MCHC 29.7 g/dL (31.0-37.0); MCV 99.1 fL (80.0-100.0); Macrocytosis Slight; Mean Platelet Volume 7.7; Monocytes # (A) 0.3 k/uL (0-1.0); Monocytes % (A) 3 %; Neutrophils % (A) 79 %; Platelet Count 520 k/uL (150-450); RBC 4.37 m/uL (4.30-5.90); RDW 16.6 % (11.5-15.5); WBC 10.2 k/uL (3.8-10.6)
[2024-02-08] MEDS: INSULIN REGULAR BOLUS (FROM DRIP BAG) IV ONE (09:14)
[2024-02-08] MEDS: INSULIN REGULAR 100 UNIT in SODIUM CHLORIDE 0.9% 100 ML IV SCH (09:14)
[2024-02-08] MEDS: SODIUM CHLORIDE 0.9% 1,000 ML IV SCH (09:15)
--- NOTE | 2024-02-08 09:16 | ED ---
General Adult HPI - General Chief complaint: Recheck/Abnormal Lab/Rx Stated complaint: Diabetic issues Time Seen by Provider: 02/08/24 08:20 Source: patient Mode of arrival: EMS - History of Present Illness Initial comments: Dictation was produced using [employer] dictation software. please excuse any grammatical, word or spelling errors. Chief Complaint: 28-year-old male presents with DKA History of Present Illness: Patient 28-year-old male he is well-known to the emergency department for diabetic ketoacidosis. Presents to the ER from home by EMS. According to patient he was discharged on Friday. EMS states that patient's blood sugar read high. Patient complaining of abdominal cramping. Patient a unreliable historian secondary to the lethargy Unable to obtain ROS secondary to mental status - Related Data Home Medications Medication Instructions Recorded Confirmed Insulin Lispro 7 units SQ AC-TID 09/17/23 02/08/24 Insulin Detemir [Levemir Flexpen] 30 units SQ DAILY@0700 01/30/24 02/08/24 Allergies Allergy/AdvReac Type Severity Reaction Status Date / Time No Known Allergies Allergy Verified 02/08/24 12:20 Review of Systems ROS Statement: Those systems with pertinent positive or pertinent negative responses have been documented in the HPI. ROS Other: All systems not noted in ROS Statement are negative. Past Medical History Past Medical History: Asthma, Diabetes Mellitus, Neurologic Disorder, Skin Disorder Additional Past Medical History / Comment(s): IDDM type I, neuropathy bilateral feet, DKA, eczema. History of Any Multi-Drug Resistant Organisms: None Reported Past Surgical History: Adenoidectomy Additional Past Surgical History / Comment(s): gastritis Past Anesthesia/Blood Transfusion Reactions: No Reported Reaction Past Psychological History: Anxiety, Depression Additional Psychological History / Comment(s): Pt has had multiple psychiatric admissions for depression/suicide attempts. Patient denies any current suicidal thoughts and when asked when his last suicidal thoughts were, he states "it's been a long time." Smoking Status: Vaper Past Alcohol Use History: None Reported Additional Past Alcohol Use History / Comment(s): Pt vapes daily. He states it has been years since he has drank any alcohol. Past Drug Use History: None Reported - Past Family History Mother Family Medical History: CVA/TIA Additional Family Medical History / Comment(s): TIA Father Family Medical History: Hyperlipidemia, Hypertension Additional Family Medical History / Comment(s): . General Exam - General Exam Comments Initial Comments: PHYSICAL EXAM: General Impression: Lethargic, not in acute distress, smells of acetone HEENT: Normocephalic atraumatic, extra-ocular movements intact, pupils equal and reactive to light bilaterally, dry mucous membranes Cardiovascular: Heart regular rate and rhythm Chest: Clue small respirations Abdomen: abdomen soft, diffuse palpatory tenderness, non-distended, no organomegaly Musculoskeletal: Pulses present and equal in all extremities, no peripheral edema Motor: no focal deficits noted Neurological: CN II-XII grossly intact, no focal motor or sensory deficits noted Skin: Intact with no visualized rashes Course Vital Signs 02/08/24 02/08/24 02/08/24 09:41 10:15 11:58 Pulse Rate 130 H 124 H 130 H Respiratory 20 22 20 Rate Blood Pressure 80/56 99/73 O2 Sat by Pulse 100 98 98 Oximetry 02/08/24 12:17 Pulse Rate 127 H Respiratory 20 Rate Blood Pressure 98/74 O2 Sat by Pulse 98 Oximetry EKG Findings - EKG Comments: EKG Findings:: My EKG interpretation: Ventricular rate 130, sinus tachycardia,. 141, cures 90, QTc 3 7. No HI prolongation, no QTC prolongation, no ST or T-wave changes noted. Medical Decision Making - Medical Decision Making Was pt. sent in by a medical professional or institution ([facility], PUBLIC ADDRESS SERVICER, urgent care, hospital, or custodial...) When possible be specific @ -No Did you speak to anyone other than the patient for history (EMS, parent, family, police, friend...)? What history was obtained from this source @ -EMS as described above Did you review nursing and triage notes (agree or disagree)? Why? @ -I reviewed and agree with nursing and triage notes Were old charts reviewed (outside hosp., previous admission, EMS record, old EKG, old radiological studies, urgent care reports/EKG's, custodial records)? Report findings @ -No old charts were reviewed Differential Diagnosis (chest pain, altered mental status, abdominal pain women, abdominal pain men, vaginal bleeding, musculoskeletal, weakness, fever, dyspnea, syncope, headache, dizziness, GI bleed, back pain, seizure, CVA, palpatations, mental health)? @ -Differential Weakness: Hypoglycemia, shock, sepsis, hyponatremia, anemia, infection, CO, ETOH, adverse medicine reaction, overdose, stroke, this is not meant to be an all-inclusive list. EKG interpreted by me (3pts min.). @ -See above X-rays interpreted by me (1pt min.). @ -None done CT interpreted by me (1pt min.). @ -None done U/S interpreted by me (1pt. min.). @ -None done What testing was considered but not performed or refused? (CT, X-rays, U/S, labs)? Why? @ -None What meds were considered but not given or refused? Why? @ -None Was smoking cessation discussed for >3mins.? @ -No Were there social determinants of health that impacted care today? How? (Homelessness, low income, unemployed, alcoholism, drug addiction, transportation, low edu. Level, literacy, decrease access to med. care, snf, rehab)? @ -No Was there de-escalation of care discussed even if they declined (Discuss DNR or withdrawal of care, Hospice)? DNR status @ -No What co-morbidities impacted this encounter? (DM, HTN, Smoking, COPD, CAD, Cancer, CVA, ARF, Chemo, Hep., AIDS, mental health diagnosis, sleep apnea, morbid obesity)? @ -Insulin-dependent diabetes mellitus Was patient admitted / discharged? Hospital course, mention meds given and route, prescriptions, significant lab abnormalities, going to OR and other pertinent info. @ -28-year-old male presents emergency department yet again for DKA. Vital signs upon arrival shows tachycardia 130, blood pressure of 8456 improved with IV fluids. Laboratory evaluation obtained. CBC is unremarkable. Bicarb less than 5. Glucose 789, lactic acid was 3.7 acetone positive. Patient started on DKA order set Did you discuss the management of the patient with other professionals (professionals i.e. , PA, PUBLIC ADDRESS SERVICER, lab, RT, psych nurse, social and political studies professor, executive creative director, teacher, energy control officer, case folder)? Give summary @ -Case discussed with bisque cleaner for ICU admission. Case also discussed with Dr. Valenzuela for hospital admission Was critical care preformed (if so, how long)? @ -Yes, 33 minutes Undiagnosed new problem with uncertain prognosis? @ -No Drug Therapy requiring intensive monitoring for toxicity (Heparin, Nitro, Insulin, Cardizem)? @ -No Were any procedures done? @ -No Diagnosis/symptom? Acute, or Chronic, or Acute on Chronic? Uncomplicated (without systemic symptoms) or Complicated (systemic symptoms)? @ -DKA Side effects of treatment? @ -No Exacerbation, Progression, or Severe Exacerbation? @ -No Poses a threat to life or bodily function? How? (Chest pain, USA, CO, pneumonia, PE, COPD, DKA, ARF, appy, cholecystitis, CVA, Diverticulitis, Homicidal, Suicidal, threat to staff... and all critical care pts) @ -yes - Lab Data Result diagrams: 02/08/24 08:56 02/08/24 10:15 Lab Results 02/08/24 02/08/24 02/08/24 Range/Units 08:37 08:56 08:56 WBC 10.2 (3.8-10.6) k/uL RBC 4.37 (4.30-5.90) m/uL Hgb 12.8 L (13.0-17.5) gm/dL Hct 43.2 (39.0-53.0) % MCV 99.1 (80.0-100.0) fL MCH 29.4 (25.0-35.0) pg MCHC 29.7 L (31.0-37.0) g/dL RDW 16.6 H (11.5-15.5) % Plt Count 520 H (150-450) k/uL MPV 7.7 Neutrophils % 79 % Lymphocytes % 17 % Monocytes % 3 % Eosinophils % 0 % Basophils % 1 % Neutrophils # 8.0 H (1.3-7.7) k/uL Lymphocytes # 1.7 (1.0-4.8) k/uL Monocytes # 0.3 (0-1.0) k/uL Eosinophils # 0.0 (0-0.7) k/uL Basophils # 0.1 (0-0.2) k/uL Hypochromasia Marked Anisocytosis Slight Macrocytosis Slight Sodium (137-145) mmol/L Potassium (3.5-5.1) mmol/L Chloride (98-107) mmol/L Carbon Dioxide (22-30) mmol/L Anion Gap mmol/L BUN (9-20) mg/dL Creatinine (0.66-1.25) mg/dL Est GFR (CKD-EPI)AfAm (>60 ml/min/1.73 sqM) Est GFR (CKD-EPI)NonAf (>60 ml/min/1.73 sqM) Glucose (74-99) mg/dL POC Glucose (mg/dL) >600 H* (70-110) mg/dL POC Glu Provider Scribe ID Jayjay Macias Lactic Ac Sepsis Rflx Plasma Lactic Acid Len 3.7 H* (0.7-2.0) mmol/L Calcium (8.4-10.2) mg/dL Total Bilirubin (0.2-1.3) mg/dL AST (17-59) U/L ALT (4-49) U/L Alkaline Phosphatase (38-126) U/L Total Protein (6.3-8.2) g/dL Albumin (3.5-5.0) g/dL Acetone, Qual (Negative) 02/08/24 02/08/24 02/08/24 Range/Units 10:01 10:15 10:16 WBC (3.8-10.6) k/uL RBC (4.30-5.90) m/uL Hgb (13.0-17.5) gm/dL Hct (39.0-53.0) % MCV (80.0-100.0) fL MCH (25.0-35.0) pg MCHC (31.0-37.0) g/dL RDW (11.5-15.5) % Plt Count (150-450) k/uL MPV Neutrophils % % Lymphocytes % % Monocytes % % Eosinophils % % Basophils % % Neutrophils # (1.3-7.7) k/uL Lymphocytes # (1.0-4.8) k/uL Monocytes # (0-1.0) k/uL Eosinophils # (0-0.7) k/uL Basophils # (0-0.2) k/uL Hypochromasia Anisocytosis Macrocytosis Sodium 137 (137-145) mmol/L Potassium 5.4 H (3.5-5.1) mmol/L Chloride 94 L (98-107) mmol/L Carbon Dioxide <5 L* (22-30) mmol/L Anion Gap mmol/L BUN 25 H (9-20) mg/dL Creatinine 1.43 H (0.66-1.25) mg/dL Est GFR (CKD-EPI)AfAm 78 (>60 ml/min/1.73 sqM) Est GFR (CKD-EPI)NonAf 68 (>60 ml/min/1.73 sqM) Glucose 789 H* (74-99) mg/dL POC Glucose (mg/dL) >600 H* (70-110) mg/dL POC Glu Provider Scribe ID Svetlana Lopez Lactic Ac Sepsis Rflx Y Plasma Lactic Acid Len (0.7-2.0) mmol/L Calcium 9.6 (8.4-10.2) mg/dL Total Bilirubin 0.7 (0.2-1.3) mg/dL AST 27 (17-59) U/L ALT 26 (4-49) U/L Alkaline Phosphatase 103 (38-126) U/L Total Protein 6.9 (6.3-8.2) g/dL Albumin 4.7 (3.5-5.0) g/dL Acetone, Qual Positive (Negative) 02/08/24 02/08/24 Range/Units 11:13 12:15 WBC (3.8-10.6) k/uL RBC (4.30-5.90) m/uL Hgb (13.0-17.5) gm/dL Hct (39.0-53.0) % MCV (80.0-100.0) fL MCH (25.0-35.0) pg MCHC (31.0-37.0) g/dL RDW (11.5-15.5) % Plt Count (150-450) k/uL MPV Neutrophils % % Lymphocytes % % Monocytes % % Eosinophils % % Basophils % % Neutrophils # (1.3-7.7) k/uL Lymphocytes # (1.0-4.8) k/uL Monocytes # (0-1.0) k/uL Eosinophils # (0-0.7) k/uL Basophils # (0-0.2) k/uL Hypochromasia Anisocytosis Macrocytosis Sodium (137-145) mmol/L Potassium (3.5-5.1) mmol/L Chloride (98-107) mmol/L Carbon Dioxide (22-30) mmol/L Anion Gap mmol/L BUN (9-20) mg/dL Creatinine (0.66-1.25) mg/dL Est GFR (CKD-EPI)AfAm (>60 ml/min/1.73 sqM) Est GFR (CKD-EPI)NonAf (>60 ml/min/1.73 sqM) Glucose (74-99) mg/dL POC Glucose (mg/dL) 536 H* 435 H (70-110) mg/dL POC Glu Provider Scribe ID LexieGermaine panda Kaitlyn Lactic Ac Sepsis Rflx Plasma Lactic Acid Len (0.7-2.0) mmol/L Calcium (8.4-10.2) mg/dL Total Bilirubin (0.2-1.3) mg/dL AST (17-59) U/L ALT (4-49) U/L Alkaline Phosphatase (38-126) U/L Total Protein (6.3-8.2) g/dL Albumin (3.5-5.0) g/dL Acetone, Qual (Negative) Disposition Clinical Impression: DKA (diabetic ketoacidosis) Disposition: ADMITTED IP TO THIS [facility] Condition: Critical Referrals: Brown Valenzuela MD [Primary Care Provider] - 1-2 days Decision Time: 13:06
[2024-02-08 10:17] LABS: Glucose,Whole Blood >600 mg/dL (70-110)
[2024-02-08 10:35] LABS: ALT 26 U/L (4-49); African American GFR (CKD) 78 (>60 ml/min/1.73 sqM); Albumin 4.7 g/dL (3.5-5.0); Blood Urea Nitrogen 25 mg/dL (9-20); Calcium 9.6 mg/dL (8.4-10.2); Chloride 94 mmol/L (98-107); Non-African American GFR(CKD) 68 (>60 ml/min/1.73 sqM); Sodium 137 mmol/L (137-145); Total Bilirubin 0.7 mg/dL (0.2-1.3); Total Protein 6.9 g/dL (6.3-8.2)
[2024-02-08 10:47] LABS: Glucose 789 mg/dL (74-99)
[2024-02-08 10:48] LABS: AST 27 U/L (17-59); Alkaline Phosphatase 103 U/L (38-126); Carbon Dioxide <5 mmol/L (22-30); Potassium 5.4 mmol/L (3.5-5.1)
[2024-02-08 11:16] LABS: Glucose,Whole Blood 536 mg/dL (70-110)
[2024-02-08] MEDS: ONDANSETRON 4 MG/2 ML VIAL IVP STA (11:56)
[2024-02-08 12:16] LABS: Glucose,Whole Blood 435 mg/dL (70-110)
[2024-02-08 13:21] LABS: Glucose,Whole Blood 263 mg/dL (70-110)
--- NOTE | 2024-02-08 13:45 | P.CNPUL ---
History of Present Illness Consult date: 02/08/24 Requesting physician: Brown Valenzuela Reason for consult: other (Critical care management) Chief complaint: Nausea, vomiting History of present illness: This is a 28-year-old male patient with a known history of diabetes mellitus and has had multiple admissions for DKA secondary to noncompliance. He was just discharged home on February 06, 2024 and return to the emergency room this morn ing with episodes of nausea, vomiting. Glucose level of 789. Sodium 137. Potassium 5.4. Bicarb less than 5. BUN 25. Creatinine 1.43. Acetone positive. White count 10.2. Hemoglobin 12.8. Platelets 520. He has been initiated on the DKA protocol. Currently on an insulin drip at 0.1 units/kg/h. Normal saline at 200 mL/h. Awaiting ICU admission. He is seen today in the emergency department. Awake, alert. Continues with nausea and vomiting. He is maintaining good O2 saturations in the upper 90s on room air. He is afebrile. He is tachycardic in the 120s. Blood pressure stable. Review of Systems REVIEW OF SYSTEMS: CONSTITUTIONAL: Denies any recent significant weight loss or weight gain. EYES: Denies change in vision. EARS, NOSE, MOUTH, THROAT: Denies headaches, denies sore throat. CARDIOVASCULAR: Denies chest pain, palpitations or syncopal episodes. RESPIRATORY: Denies shortness of breath, cough, congestion or hemoptysis. GASTROINTESTINAL: Positive for nausea and vomiting GENITOURINARY: Denies hematuria, denies infections. MUSKULOSKELETAL: Denies pain, denies swelling. INTEGUMENTARY: Denies rash, denies eczema. NEUROLOGICAL: Denies recent memory loss, no recent seizure activity. PSYCHIATRIC: Denies anxiety, denies depression. HEMATOLOGIC/LYMPHATIC: Denies anemia, denies enlarged lymph nodes. Past Medical History Past Medical History: Asthma, Diabetes Mellitus, Neurologic Disorder, Skin Disorder Additional Past Medical History / Comment(s): IDDM type I, neuropathy bilateral feet, DKA, eczema. History of Any Multi-Drug Resistant Organisms: None Reported Past Surgical History: Adenoidectomy Additional Past Surgical History / Comment(s): gastritis Past Anesthesia/Blood Transfusion Reactions: No Reported Reaction Past Psychological History: Anxiety, Depression Additional Psychological History / Comment(s): Pt has had multiple psychiatric admissions for depression/suicide attempts. Patient denies any current suicidal thoughts and when asked when his last suicidal thoughts were, he states "it's been a long time." Smoking Status: Vaper Past Alcohol Use History: None Reported Additional Past Alcohol Use History / Comment(s): Pt vapes daily. He states it has been years since he has drank any alcohol. Past Drug Use History: None Reported - Past Family History Mother Family Medical History: CVA/TIA Additional Family Medical History / Comment(s): TIA Father Family Medical History: Hyperlipidemia, Hypertension Additional Family Medical History / Comment(s): . Medications and Allergies Home Medications Medication Instructions Recorded Confirmed Type Insulin Lispro 7 units SQ AC-TID 09/17/23 02/08/24 History Insulin Detemir [Levemir Flexpen] 30 units SQ DAILY@0700 01/30/24 02/08/24 History Allergies Allergy/AdvReac Type Severity Reaction Status Date / Time No Known Allergies Allergy Verified 02/08/24 12:20 Physical Exam Vitals: Vital Signs Pulse Resp BP Pulse Ox 02/08/24 12:17 127 H 20 98/74 98 02/08/24 11:58 130 H 20 99/73 98 02/08/24 10:15 124 H 22 98 02/08/24 09:41 130 H 20 80/56 100 Intake and Output 02/07/24 02/08/24 02/08/24 22:59 06:59 14:59 Intake Total 9.964 Balance 9.964 Intake: Intake, IV Titration 9.964 Amount Insulin Regular 100 unit 9.964 In Sodium Chloride 0.9% 100 ml @ 0.1 UNITS/KG/HR 7.788 mls/hr IV .[id number] [facility] Rx#:[id number] Other: Weight 77.111 kg GENERAL EXAM: Alert, thin 28-year-old male, on room air, fairly comfortable in no apparent distress. HEAD: Normocephalic. EYES: Normal reaction of pupils, equal size. NOSE: Clear with pink turbinates. THROAT: No erythema or exudates. NECK: No masses, no JVD. CHEST: No chest wall deformity. LUNGS: Equal air entry with no crackles, wheeze, rhonchi or dullness. CVS: S1 and S2 normal with no audible murmur, regular rhythm. ABDOMEN: No hepatosplenomegaly, normal bowel sounds, no guarding or rigidity. SPINE: No scoliosis or deformity SKIN: No rashes CENTRAL NERVOUS SYSTEM: No focal deficits, tone is normal in all 4 extremities. EXTREMITIES: There is no peripheral edema. No clubbing, no cyanosis. Peripheral pulses are intact. Results - Laboratory Findings CBC and BMP: 02/08/24 08:56 02/08/24 10:15 Abnormal lab findings: Abnormal Labs 02/08/24 02/08/24 02/08/24 08:37 08:56 08:56 Hgb 12.8 L MCHC 29.7 L RDW 16.6 H Plt Count 520 H Neutrophils # 8.0 H Potassium Chloride Carbon Dioxide BUN Creatinine Glucose POC Glucose (mg/dL) >600 H* Plasma Lactic Acid Len 3.7 H* 02/08/24 02/08/24 02/08/24 10:15 10:16 11:13 Hgb MCHC RDW Plt Count Neutrophils # Potassium 5.4 H Chloride 94 L Carbon Dioxide <5 L* BUN 25 H Creatinine 1.43 H Glucose 789 H* POC Glucose (mg/dL) >600 H* 536 H* Plasma Lactic Acid Len 02/08/24 02/08/24 12:15 13:20 Hgb MCHC RDW Plt Count Neutrophils # Potassium Chloride Carbon Dioxide BUN Creatinine Glucose POC Glucose (mg/dL) 435 H 263 H Plasma Lactic Acid Len Assessment and Plan Assessment: Acute diabetic ketoacidosis, likely secondary to medication noncompliance. Patient has had numerous episodes of DKA and just discharged again on 02/06/2024 Severe anion gap metabolic acidosis, secondary to above Severe dehydration Type 1 diabetes mellitus, with poor medication compliance. Acute leukocytosis, likely reactive to DKA Diabetic neuropathy History of major depression Chronic marijuana use Chronic ongoing nicotine dependence Plan: The patient was seen and evaluated Labs and medications reviewed Currently stable and on room air Awaiting ICU admission Continue with the DKA a protocol Again educated regarding the importance of medication compliance We will continue to follow and make further recommendations based on his cl inical status I have personally seen and examined the patient, performed the documentation and the assessment and plan as written. Number of minutes spent on the visit: 20.
[2024-02-08 13:47] LABS: African American GFR (CKD) >90 (>60 ml/min/1.73 sqM); Anion Gap 27 mmol/L; Blood Urea Nitrogen 27 mg/dL (9-20); Carbon Dioxide 13 mmol/L (22-30); Chloride 103 mmol/L (98-107); Glucose 255 mg/dL (74-99); Non-African American GFR(CKD) >90 (>60 ml/min/1.73 sqM); Potassium 4.7 mmol/L (3.5-5.1); Sodium 143 mmol/L (137-145)
[2024-02-08 14:27] LABS: Glucose,Whole Blood 151 mg/dL (70-110)
[2024-02-08] MEDS: D5-0.45% NACL WITH KCL 20MEQ/L 1,000 ML IV SCH (14:40)
[2024-02-08 15:14] LABS: Glucose,Whole Blood 143 mg/dL (70-110)
[2024-02-08 16:12] LABS: Glucose,Whole Blood 149 mg/dL (70-110)
[2024-02-08 19:31] LABS: Glucose,Whole Blood 400 mg/dL (70-110)
[2024-02-08] MEDS: METOCLOPRAMIDE 5 MG/ML 2 ML VIAL IVP PRN (19:45)
[2024-02-08 20:01] LABS: African American GFR (CKD) >90 (>60 ml/min/1.73 sqM); Anion Gap 29 mmol/L; Blood Urea Nitrogen 26 mg/dL (9-20); Chloride 102 mmol/L (98-107); Glucose 446 mg/dL (74-99); Non-African American GFR(CKD) >90 (>60 ml/min/1.73 sqM); Phosphorus 3.4 mg/dL (2.5-4.5); Potassium 5.8 mmol/L (3.5-5.1); Sodium 138 mmol/L (137-145)
[2024-02-08 20:03] LABS: Carbon Dioxide 7 mmol/L (22-30)
[2024-02-08 20:09] LABS: Glucose,Whole Blood 430 mg/dL (70-110)
[2024-02-08 20:58] LABS: Glucose,Whole Blood 384 mg/dL (70-110)
[2024-02-08 21:58] LABS: Glucose,Whole Blood 300 mg/dL (70-110)
[2024-02-08 22:55] LABS: Glucose,Whole Blood 226 mg/dL (70-110)
[2024-02-08 23:57] LABS: Glucose,Whole Blood 165 mg/dL (70-110)
[2024-02-09 00:34] LABS: ALT 23 U/L (4-49); AST 23 U/L (17-59); African American GFR (CKD) >90 (>60 ml/min/1.73 sqM); Albumin 4.7 g/dL (3.5-5.0); Alkaline Phosphatase 122 U/L (38-126); Anion Gap 25 mmol/L; Blood Urea Nitrogen 26 mg/dL (9-20); Calcium 9.7 mg/dL (8.4-10.2); Carbon Dioxide 11 mmol/L (22-30); Chloride 104 mmol/L (98-107); Glucose 218 mg/dL (74-99); Non-African American GFR(CKD) >90 (>60 ml/min/1.73 sqM); Phosphorus 2.7 mg/dL (2.5-4.5); Potassium 4.5 mmol/L (3.5-5.1); Sodium 140 mmol/L (137-145); Total Bilirubin 0.8 mg/dL (0.2-1.3); Total Protein 7.1 g/dL (6.3-8.2)
[2024-02-09 01:01] LABS: Glucose,Whole Blood 130 mg/dL (70-110)
[2024-02-09 02:01] LABS: Glucose,Whole Blood 125 mg/dL (70-110)
[2024-02-09 02:59] LABS: Glucose,Whole Blood 132 mg/dL (70-110)
[2024-02-09 03:20] LABS: ALT 20 U/L (4-49); AST 17 U/L (17-59); African American GFR (CKD) >90 (>60 ml/min/1.73 sqM); Albumin 3.9 g/dL (3.5-5.0); Alkaline Phosphatase 111 U/L (38-126); Anion Gap 9 mmol/L; Blood Urea Nitrogen 25 mg/dL (9-20); Carbon Dioxide 22 mmol/L (22-30); Chloride 103 mmol/L (98-107); Glucose 128 mg/dL (74-99); Magnesium 1.9 mg/dL (1.6-2.3); Non-African American GFR(CKD) >90 (>60 ml/min/1.73 sqM); Phosphorus 2.7 mg/dL (2.5-4.5); Potassium 4.4 mmol/L (3.5-5.1); Sodium 134 mmol/L (137-145); Total Bilirubin 0.6 mg/dL (0.2-1.3); Total Protein 6.2 g/dL (6.3-8.2)
[2024-02-09 04:07] LABS: Glucose,Whole Blood 136 mg/dL (70-110)
[2024-02-09] MEDS: INSULIN DETEMIR (LEVEMIR) 100 UNIT/ML SYR SQ SCH (04:21)
[2024-02-09 05:10] LABS: Glucose,Whole Blood 179 mg/dL (70-110)
[2024-02-09 06:23] LABS: African American GFR (CKD) >90 (>60 ml/min/1.73 sqM); Anion Gap 17 mmol/L; Blood Urea Nitrogen 22 mg/dL (9-20); Calcium 8.9 mg/dL (8.4-10.2); Carbon Dioxide 15 mmol/L (22-30); Chloride 104 mmol/L (98-107); Glucose 188 mg/dL (74-99); Non-African American GFR(CKD) >90 (>60 ml/min/1.73 sqM); Potassium 4.8 mmol/L (3.5-5.1); Sodium 136 mmol/L (137-145)
[2024-02-09 06:26] LABS: Glucose,Whole Blood 176 mg/dL (70-110)
[2024-02-09] MEDS ORDERED: INSULIN DETEMIR (LEVEMIR) 100 UNIT/ML SYR SQ SCH (07:00)
[2024-02-09 07:01] LABS: Glucose,Whole Blood 149 mg/dL (70-110)
[2024-02-09] MEDS: INSULIN ASPART (NovoLOG) 100 UNIT/ML VIAL SQ SCH ×2 (07:02→08:38)
[2024-02-09 08:21] LABS: Glucose,Whole Blood 131 mg/dL (70-110)
[2024-02-09 11:27] LABS: Glucose,Whole Blood 78 mg/dL (70-110)
--- NOTE | 2024-02-09 11:37 | P.PN ---
Subjective Progress Note Date: 02/09/24 Principal diagnosis: DKA. This is a 28-year-old male patient with a known history of diabetes mellitus and has had multiple admissions for DKA secondary to noncompliance. He was just discharged home on February 06, 2024 and return to the emergency room this morning with episodes of nausea, vomiting. Glucose level of 789. Sodium 137. Potassium 5.4. Bicarb less than 5. BUN 25. Creatinine 1.43. Acetone positive. White count 10.2. Hemoglobin 12.8. Platelets 520. He has been initiated on the DKA protocol. Currently on an insulin drip at 0.1 units/kg/h. Normal saline at 200 mL/h. Awaiting ICU admission. He is seen today in the emergency department. Awake, alert. Continues with nausea and vomiting. He is maintaining good O2 saturations in the upper 90s on room air. He is afebrile. He is tachycardic in the 120s. Blood pressure stable. Progress note dated February 09, 2024. 28-year-old male with history of insulin-dependent diabetes mellitus. The patient was admitted with a diagnosis of diabetic ketoacidosis, and has many admissions to this hospital, for similar situation. Currently, the patient is seen in the intensive care unit, room 266. The patient has been transition. He is not receiving any IV fluids. He is on room air. The patient has been downgraded to the general medical floor. Current labs include sodium of 136, potassium 4.8, chlorides 104, CO2 15, anion gap 17, BUN 22, creatinine 0.73. Most recent glucose of 78. Calcium 8.9. Objective - Vital Signs Vital signs: Vital Signs Temp 97.5 F L 02/09/24 08:00 Pulse 111 H 02/09/24 08:00 Resp 9 L 02/09/24 08:00 BP 114/74 02/09/24 08:00 Pulse Ox 96 02/09/24 08:00 FiO2 Intake & Output 02/08/24 02/09/24 02/09/24 18:59 06:59 18:59 Intake Total 50.137 1390.686 Output Total 1200 Balance 50.137 190.686 Weight 77.111 kg 65.6 kg Intake: Intake, IV Titration 50.137 1390.686 Amount D5-0.45% NaCl with KCl 1350 20Meq/l 1,000 ml @ 150 mls/hr IV .[id number] [facility] Rx# :[id number] Insulin Regular 100 unit 50.137 40.686 In Sodium Chloride 0.9% 100 ml @ 0.1 UNITS/KG/HR 7.788 mls/hr IV .[id number] [facility] Rx#:[id number] Output: Urine 1200 Other: Voiding Method Urinal Urinal - Exam No acute distress, oriented 3. HEENT examination is grossly unremarkable. Mucous membranes are moist. No oral lesions. Neck supple. Full range of motion. No adenopathy thyromegaly or neck vein distention. Cardiovascular examination reveals regular rhythm rate. S1-S2 normal. No S3 or S4. No discernible murmur noted. Lungs reveal clear breath sounds. Breath sounds are equal bilaterally. No adventitious lung sounds including wheezes rhonchi or crackles. Abdomen soft bowel sounds are heard. No masses or tenderness. Extremities are intact. No cyanosis clubbing or edema. Skin is without rash or lesion. Neurologic examination is brief but nonfocal. - Labs CBC & Chem 7: 02/08/24 08:56 02/09/24 05:40 Labs: Abnormal Lab Results - Last 24 Hours (Table) 02/08/24 02/08/24 02/08/24 Range/Units 12:15 13:20 13:23 Sodium (137-145) mmol/L Potassium (3.5-5.1) mmol/L Carbon Dioxide 13 L (22-30) mmol/L BUN 27 H (9-20) mg/dL Glucose 255 H (74-99) mg/dL POC Glucose (mg/dL) 435 H 263 H (70-110) mg/dL Plasma Lactic Acid Len (0.7-2.0) mmol/L Total Protein (6.3-8.2) g/dL 02/08/24 02/08/24 02/08/24 Range/Units 13:23 14:24 15:12 Sodium (137-145) mmol/L Potassium (3.5-5.1) mmol/L Carbon Dioxide (22-30) mmol/L BUN (9-20) mg/dL Glucose (74-99) mg/dL POC Glucose (mg/dL) 151 H 143 H (70-110) mg/dL Plasma Lactic Acid Len 3.2 H* (0.7-2.0) mmol/L Total Protein (6.3-8.2) g/dL 02/08/24 02/08/24 02/08/24 Range/Units 16:08 19:14 19:23 Sodium (137-145) mmol/L Potassium 5.8 H (3.5-5.1) mmol/L Carbon Dioxide 7 L* (22-30) mmol/L BUN 26 H (9-20) mg/dL Glucose 446 H (74-99) mg/dL POC Glucose (mg/dL) 149 H 400 H (70-110) mg/dL Plasma Lactic Acid Len (0.7-2.0) mmol/L Total Protein (6.3-8.2) g/dL 02/08/24 02/08/24 02/08/24 Range/Units 20:07 20:57 21:56 Sodium (137-145) mmol/L Potassium (3.5-5.1) mmol/L Carbon Dioxide (22-30) mmol/L BUN (9-20) mg/dL Glucose (74-99) mg/dL POC Glucose (mg/dL) 430 H 384 H 300 H (70-110) mg/dL Plasma Lactic Acid Len (0.7-2.0) mmol/L Total Protein (6.3-8.2) g/dL 02/08/24 02/08/24 02/08/24 Range/Units 22:54 23:02 23:56 Sodium (137-145) mmol/L Potassium (3.5-5.1) mmol/L Carbon Dioxide 11 L (22-30) mmol/L BUN 26 H (9-20) mg/dL Glucose 218 H (74-99) mg/dL POC Glucose (mg/dL) 226 H 165 H (70-110) mg/dL Plasma Lactic Acid Len (0.7-2.0) mmol/L Total Protein (6.3-8.2) g/dL 02/09/24 02/09/24 02/09/24 Range/Units 01:00 02:00 02:36 Sodium 134 L (137-145) mmol/L Potassium (3.5-5.1) mmol/L Carbon Dioxide (22-30) mmol/L BUN 25 H (9-20) mg/dL Glucose 128 H (74-99) mg/dL POC Glucose (mg/dL) 130 H 125 H (70-110) mg/dL Plasma Lactic Acid Len (0.7-2.0) mmol/L Total Protein 6.2 L (6.3-8.2) g/dL 02/09/24 02/09/24 02/09/24 Range/Units 02:58 04:05 05:09 Sodium (137-145) mmol/L Potassium (3.5-5.1) mmol/L Carbon Dioxide (22-30) mmol/L BUN (9-20) mg/dL Glucose (74-99) mg/dL POC Glucose (mg/dL) 132 H 136 H 179 H (70-110) mg/dL Plasma Lactic Acid Len (0.7-2.0) mmol/L Total Protein (6.3-8.2) g/dL 02/09/24 02/09/24 02/09/24 Range/Units 05:40 06:26 06:59 Sodium 136 L (137-145) mmol/L Potassium (3.5-5.1) mmol/L Carbon Dioxide 15 L (22-30) mmol/L BUN 22 H (9-20) mg/dL Glucose 188 H (74-99) mg/dL POC Glucose (mg/dL) 176 H 149 H (70-110) mg/dL Plasma Lactic Acid Len (0.7-2.0) mmol/L Total Protein (6.3-8.2) g/dL 02/09/24 Range/Units 08:19 Sodium (137-145) mmol/L Potassium (3.5-5.1) mmol/L Carbon Dioxide (22-30) mmol/L BUN (9-20) mg/dL Glucose (74-99) mg/dL POC Glucose (mg/dL) 131 H (70-110) mg/dL Plasma Lactic Acid Len (0.7-2.0) mmol/L Total Protein (6.3-8.2) g/dL Assessment and Plan Assessment: Acute diabetic ketoacidosis, and then noncompliant patient, with multiple admissions for same. Severe anion gap metabolic acidosis, resolved. Severe dehydration. Type 1 diabetes mellitus. Acute leukocytosis. Diabetic neuropathy. History of major depression. History of chronic marijuana use. History of chronic and ongoing nicotine dependence. Plan: Plan dated February 09, 2024. The patient can be transitioned out of the intensive care unit, to the general medical floor. The patient is on room air. The patient is not receiving any IV fluids. Labs have been reviewed. The patient is counseled about the importance of smoking cessation. The patient is also counseled about the importance of maintaining good diabetic care, so that he does not have recurrent, and repeated admissions for diabetic ketoacidosis. The patient is very noncompliant. Time with Patient: Less than 30
[2024-02-09 13:36] VITALS: BMI 18.1
[2024-02-09 16:35] LABS: Glucose,Whole Blood 165 mg/dL (70-110)
[2024-02-09 20:31] LABS: Glucose,Whole Blood 118 mg/dL (70-110)
[2024-02-10 01:58] LABS: Glucose,Whole Blood 92 mg/dL (70-110)
[2024-02-10 06:02] LABS: Glucose,Whole Blood 139 mg/dL (70-110)
[2024-02-10 08:00] VITALS: RESP 16
[2024-02-10 12:06] LABS: Glucose,Whole Blood 86 mg/dL (70-110)
--- NOTE | 2024-02-10 13:21 | P.PN ---
Subjective Progress Note Date: 02/10/24 Principal diagnosis: DKA. This is a 28-year-old male patient with a known history of diabetes mellitus and has had multiple admissions for DKA secondary to noncompliance. He was just discharged home on February 06, 2024 and return to the emergency room this morning with episodes of nausea, vomiting. Glucose level of 789. Sodium 137. Potassium 5.4. Bicarb less than 5. BUN 25. Creatinine 1.43. Acetone positive. White count 10.2. Hemoglobin 12.8. Platelets 520. He has been initiated on the DKA protocol. Currently on an insulin drip at 0.1 units/kg/h. Normal saline at 200 mL/h. Awaiting ICU admission. He is seen today in the emergency department. Awake, alert. Continues with nausea and vomiting. He is maintaining good O2 saturations in the upper 90s on room air. He is afebrile. He is tachycardic in the 120s. Blood pressure stable. Progress note dated February 09, 2024. 28-year-old male with history of insulin-dependent diabetes mellitus. The patient was admitted with a diagnosis of diabetic ketoacidosis, and has many admissions to this hospital, for similar situation. Currently, the patient is seen in the intensive care unit, room 266. The patient has been transition. He is not receiving any IV fluids. He is on room air. The patient has been downgraded to the general medical floor. Current labs include sodium of 136, potassium 4.8, chlorides 104, CO2 15, anion gap 17, BUN 22, creatinine 0.73. Most recent glucose of 78. Calcium 8.9. Progress note dated February 10, 2024. The patient is seen today in room 515. He is on room air. No IV fluids. He has multiple admissions to this hospital for diabetic ketoacidosis. He was previously in the intensive care unit, and did well, and transition to his normal insulin requirements. Currently, he has no complaints. We did mention to the nurse that the patient could be considered for possible discharge. No new labs today other than a glucose initially of 139, and the subsequent glucose of 86. Objective - Vital Signs Vital signs: Vital Signs Temp 97.7 F 02/10/24 07:59 Pulse 80 02/10/24 07:59 Resp 16 02/10/24 07:59 BP 138/93 02/10/24 07:59 Pulse Ox 100 02/10/24 07:59 FiO2 Intake & Output 02/09/24 02/10/24 02/10/24 18:59 06:59 18:59 Intake Total 400 740 Output Total 450 2150 Balance -50 -1410 Weight 65.6 kg Intake: Oral 740 Tube Feeding 400 Output: Urine 450 2150 Other: Voiding Method Urinal Toilet Toilet Urinal Urinal # Voids 1 - Exam No acute distress, oriented 3. HEENT examination is grossly unremarkable. Mucous membranes are moist. No oral lesions. Neck supple. Full range of motion. No adenopathy thyromegaly or neck vein distention. Cardiovascular examination reveals regular rhythm rate. S1-S2 normal. No S3 or S4. No discernible murmur noted. Lungs reveal clear breath sounds. Breath sounds are equal bilaterally. No adventitious lung sounds including wheezes rhonchi or crackles. Abdomen soft bowel sounds are heard. No masses or tenderness. Extremities are intact. No cyanosis clubbing or edema. Skin is without rash or lesion. Neurologic examination is brief but nonfocal. - Labs CBC & Chem 7: 02/08/24 08:56 02/09/24 05:40 Labs: Abnormal Lab Results - Last 24 Hours (Table) 02/09/24 02/09/24 02/10/24 Range/Units 16:33 20:29 06:00 POC Glucose (mg/dL) 165 H 118 H 139 H (70-110) mg/dL Assessment and Plan Assessment: Acute diabetic ketoacidosis, and then noncompliant patient, with multiple admissions for same. Severe anion gap metabolic acidosis, resolved. Severe dehydration. Type 1 diabetes mellitus. Acute leukocytosis. Diabetic neuropathy. History of major depression. History of chronic marijuana use. History of chronic and ongoing nicotine dependence. Plan: Plan dated February 09, 2024. The patient can be transitioned out of the intensive care unit, to the general medical floor. The patient is on room air. The patient is not receiving any IV fluids. Labs have been reviewed. The patient is counseled about the importance of smoking cessation. The patient is also counseled about the importance of maintaining good diabetic care, so that he does not have recurrent, and repeated admissions for diabetic ketoacidosis. The patient is very noncompliant. Plan dated February 10, 2024. The patient is seen in room 515. The patient is on room air. No IV fluids. The patient was admitted with a diagnosis of diabetic ketoacidosis. The patient is very noncompliant with his diabetes care. He has a multiple admissions to this hospital for diabetic ketoacidosis. The patient is counseled. Labs are reviewed. Medications are reviewed. No additional recommendations at this time. Moving forward, we will see the patient only as needed. Time with Patient: Less than 30
[2024-02-10 16:52] LABS: ALT 19 U/L (4-49); AST 28 U/L (17-59); African American GFR (CKD) >90 (>60 ml/min/1.73 sqM); Albumin 3.3 g/dL (3.5-5.0); Albumin/Globulin Ratio 1.4; Alkaline Phosphatase 84 U/L (38-126); Anion Gap 6 mmol/L; Blood Urea Nitrogen 6 mg/dL (9-20); Calcium 8.5 mg/dL (8.4-10.2); Carbon Dioxide 29 mmol/L (22-30); Chloride 94 mmol/L (98-107); Globulin 2.3 g/dL; Glucose 134 mg/dL (74-99); Non-African American GFR(CKD) >90 (>60 ml/min/1.73 sqM); Phosphorus 3.4 mg/dL (2.5-4.5); Sodium 129 mmol/L (137-145); Total Bilirubin 0.3 mg/dL (0.2-1.3); Total Protein 5.6 g/dL (6.3-8.2)
[2024-02-10 17:15] LABS: Glucose,Whole Blood 147 mg/dL (70-110)
[2024-02-10 20:25] LABS: Glucose,Whole Blood 156 mg/dL (70-110)
[2024-02-10 23:16] LABS: Glucose,Whole Blood 126 mg/dL (70-110)
[2024-02-11 07:03] LABS: Glucose,Whole Blood 323 mg/dL (70-110)
[2024-02-11 12:05] LABS: Glucose,Whole Blood 102 mg/dL (70-110)
[2024-02-11 12:32] VITALS: BP 112/75; PULSE 83; TEMP 98.1
--- NOTE | 2024-02-11 23:10 | PN ---
PROGRESS NOTE DATE OF SERVICE: 02/10/2024 CHIEF COMPLAINT: Diabetic ketoacidosis. HISTORY OF PRESENT ILLNESS: The patient is still lethargic. He is still slightly nauseated. The gap is closed and his sugars are coming down. PHYSICAL EXAMINATION: CHEST: Clear. CARDIAC: Normal. ABDOMEN: Soft, nontender. IMPRESSION: 1. Diabetic ketoacidosis. 2. Depression. PLAN: Continue to further adjust his insulin. MMODL / IJN: [id number] /
--- NOTE | 2024-02-11 23:25 | PN ---
PROGRESS NOTE DATE OF SERVICE: 02/09/2024 CHIEF COMPLAINT: Ketoacidosis with dehydration, nausea and vomiting. HISTORY OF PRESENT ILLNESS: This gentleman is still weak and nauseated. Sugars are improved. He is not eating. PHYSICAL EXAMINATION: GENERAL: He remains dehydrated. He is pale. CHEST: Clear. CARDIAC: Demonstrates sinus tachycardia. ABDOMEN: Soft. IMPRESSION: 1. Ketoacidosis. 2. Dehydration. 3. Lethargy. 4. Nausea. PLAN: Continue with IV fluids and management of his diabetes until he can advance his diet. MMODL / IJN: [id number] /
--- NOTE | 2024-02-12 02:25 | HP ---
HISTORY AND PHYSICAL CHIEF COMPLAINT: Diabetic ketoacidosis. HISTORY OF PRESENT ILLNESS: This is another of many frequent admissions for this noncompliant, depressed 28-year- old type 1 diabetic. He goes home, does not take his insulin and then is back in the hospital in 2 or 3 days. This cycle keeps repeating itself. There is nothing that can be done. I talked him about this numerous times. I tried to have a guardian who signed him, only to allow him that he had one in the past who could not control him. REVIEW OF SYSTEMS: Not obtainable. Past medical history, family history, personal and social histories are unchanged. PHYSICAL EXAMINATION: VITAL SIGNS: Normal except for tachycardia. GENERAL: He is lethargic and he is very dehydrated. He is pale. HEAD, EARS, EYES AND NOSE: Normal. CHEST: Clear. CARDIAC: Demonstrates he has tachycardia. ABDOMEN: Flat, soft. EXTREMITIES: Normal. IMPRESSION: 1. Diabetic ketoacidosis. 2. Noncompliant patient. 3. Nausea and vomiting. 4. Gastroparesis. 5. Peripheral neuropathy. 6. Depression. PLAN: Admit to ICU for critical care management for his DKA. MMODL / IJN: [id number] /
--- NOTE | 2024-02-12 03:07 | DS ---
DISCHARGE SUMMARY CHIEF COMPLAINT: Diabetic ketoacidosis. HISTORY OF PRESENT ILLNESS AND PHYSICAL EXAM: Details of this man's history and physical can be found in the initial workup. LABORATORY STUDIES: While he was in the hospital, he had laboratory studies, details of which can be found in the laboratory section of a chart. COURSE IN HOSPITAL: After admission, he was placed on bedrest, started intravenous fluids. He was in ICU until his dysuria came down and his gap closed. He was then moved to regular floor. Gradually improved and it was felt that he could be discharged on the . Once again, he was admonished to take his insulin. FINAL DIAGNOSES: 1. Diabetic ketoacidosis. 2. Dehydration. 3. Major depression. 4. Peripheral neuropathy. 5. Gastroparesis. OPERATIONS: None. CONSULTATION: Intensive Medicine. He is improved. GRACE / ALDEN: [id number] /
== END 2024-02-11 16:47 | disposition home or self-care (01) | DRG 420 ==
LOC: EC 08:17 → 2SICU 08:32 → 5NMEDONC 02-10 06:45
PROVIDERS: ADMIT Family Medicine; ATTEND Family Medicine
DX: E10.10 Type 1 diabetes mellitus with ketoacidosis without coma (principal); D72.829 Elevated white blood cell count, unspecified; E10.43 Type 1 diabetes mellitus with diabetic autonomic (poly)neuropathy; E86.0 Dehydration; F17.200 Nicotine dependence, unspecified, uncomplicated; F32.9 Major depressive disorder, single episode, unspecified; J45.909 Unspecified asthma, uncomplicated; K31.84 Gastroparesis; T38.3X6A Underdosing of insulin and oral hypoglycemic [antidiabetic] drugs, initial encounter; F41.9 Anxiety disorder, unspecified; L30.9 Dermatitis, unspecified; R00.0 Tachycardia, unspecified; Z79.4 Long term (current) use of insulin; Z79.899 Other long term (current) drug therapy; Z91.199 Patient's noncompliance with other medical treatment and regimen due to unspecified reason; Z91.128 Patient's intentional underdosing of medication regimen for other reason
CPT/HCPCS: 36415; 80048; 80051; 80053; 82009; 82565; 82947; 83605; 83735; 84100; 84520; 85025; 93005; 96361; 96374; 96375; 99291

== ENCOUNTER 2024-02-17 02:49 | Inpatient (IN) | payer OTHER ==
[2024-02-17 02:54] LABS: Glucose,Whole Blood >600 mg/dL (70-110)
--- NOTE | 2024-02-17 02:57 | ED ---
General Adult HPI - General Stated complaint: NVD Time Seen by Provider: 02/17/24 02:51 Source: patient, EMS, RN notes reviewed, old records reviewed Mode of arrival: EMS Limitations: no limitations - History of Present Illness Initial comments: This is a 28-year-old male presents emergency department via EMS chief complaint of hyperglycemia. Patient is well-known to the emergency department history of diabetes. Patient stated significant elevated blood sugar with associated nausea vomiting weakness, dehydration. Patient does not remember taking any recent insulin. Glucometer read high per EMS. Patient appears to be dehydrated, dry mouth. Patient does complain of mild diffuse abdominal pain. - Related Data Home Medications Medication Instructions Recorded Confirmed Insulin Lispro 7 units SQ AC-TID 09/17/23 02/08/24 Insulin Detemir [Levemir Flexpen] 30 units SQ DAILY@0700 01/30/24 02/08/24 Allergies Allergy/AdvReac Type Severity Reaction Status Date / Time No Known Allergies Allergy Verified 02/17/24 02:55 Review of Systems ROS Statement: Those systems with pertinent positive or pertinent negative responses have been documented in the HPI. ROS Other: All systems not noted in ROS Statement are negative. Past Medical History Past Medical History: Asthma, Diabetes Mellitus, Neurologic Disorder, Skin Disorder Additional Past Medical History / Comment(s): IDDM type I, neuropathy bilateral feet, DKA, eczema. History of Any Multi-Drug Resistant Organisms: None Reported Past Surgical History: Adenoidectomy Additional Past Surgical History / Comment(s): gastritis Past Anesthesia/Blood Transfusion Reactions: No Reported Reaction Smoking Status: Vaper - Past Family History Mother Family Medical History: CVA/TIA Additional Family Medical History / Comment(s): TIA Father Family Medical History: Hyperlipidemia, Hypertension Additional Family Medical History / Comment(s): . General Exam Limitations: no limitations General appearance: alert, in no apparent distress Head exam: Present: atraumatic, normocephalic, normal inspection Eye exam: Present: normal appearance, PERRL, EOMI. Absent: scleral icterus, conjunctival injection, periorbital swelling ENT exam: Present: normal oropharynx, mucous membranes dry Neck exam: Present: normal inspection. Absent: tenderness, meningismus, lymphadenopathy Respiratory exam: Present: normal lung sounds bilaterally. Absent: respiratory distress, wheezes, rales, rhonchi, stridor Cardiovascular Exam: Present: normal rhythm, tachycardia, normal heart sounds. Absent: systolic murmur, diastolic murmur, rubs, gallop, clicks GI/Abdominal exam: Present: soft, tenderness, normal bowel sounds. Absent: di stended, guarding, rebound, rigid Neurological exam: Present: alert Skin exam: Present: warm, dry, intact, normal color. Absent: rash Course Vital Signs 02/17/24 02:51 Temperature 97.8 F Pulse Rate 124 H Respiratory 20 Rate Blood Pressure 105/68 O2 Sat by Pulse 100 Oximetry EKG Findings - EKG Comments: EKG Findings:: EKG performed at 2: 57 sinus tachycardia with a rate of 123 SD 230 QRS 102 QT/QTc 321/394 - EKG Results: EKG: interpreted by JOANNE Medical Decision Making - Medical Decision Making Was pt. sent in by a medical professional or institution (, PA, MECHANICAL PROJECT MANAGER, urgent care, hospital, or longterm...) When possible be specific @ -No Did you speak to anyone other than the patient for history (EMS, parent, family, police, friend...)? What history was obtained from this source @ -No Did you review nursing and triage notes (agree or disagree)? Why? @ -I reviewed and agree with nursing and triage notes Were old charts reviewed (outside hosp., previous admission, EMS record, old EKG, old radiological studies, urgent care reports/EKG's, longterm records)? Report findings @ -No old charts were reviewed Differential Diagnosis (chest pain, altered mental status, abdominal pain women, abdominal pain men, vaginal bleeding, weakness, fever, dyspnea, syncope, headache, dizziness, GI bleed, back pain, seizure, CVA, palpatations, mental health, musculoskeletal)? @ -Differential Weakness: Hyperglycemia, DKA hypoglycemia, shock, sepsis, hyponatremia, anemia, infection, CA, ETOH, adverse medicine reaction, overdose, stroke, this is not meant to be an all-inclusive list. EKG interpreted by me (3pts min.). @ -As above X-rays interpreted by me (1pt min.). @ -None done CT interpreted by me (1pt min.). @ -None done U/S interpreted by me (1pt. min.). @ -None done What testing was considered but not performed or refused? (CT, X-rays, U/S, labs)? Why? @ -None What meds were considered but not given or refused? Why? @ -None Did you discuss the management of the patient with other professionals (professionals i.e. , PA, MECHANICAL PROJECT MANAGER, lab, RT, psych nurse, social insurance specialist, electronics technology instructor, teacher, medical officer, correctional counselor/case manager)? Give summary @ -Dr. Valenzuela for admission Was smoking cessation discussed for >3mins.? @ -No Was critical care preformed (if so, how long)? @ -No Were there social determinants of health that impacted care today? How? (Homelessness, low income, unemployed, alcoholism, drug addiction, transportation, low edu. Level, literacy, decrease access to med. care, shelter, rehab)? @ -No Was there de-escalation of care discussed even if they declined (Discuss DNR or withdrawal of care, Hospice)? DNR status @ -No What co-morbidities impacted this encounter? (DM, HTN, Smoking, COPD, CAD, Cancer, CVA, ARF, Chemo, Hep., AIDS, mental health diagnosis, sleep apnea, morbid obesity)? @ -Diabetes Was patient admitted / discharged? Hospital course, mention meds given and route, prescriptions, significant lab abnormalities, going to OR and other pertinent info. @ -Admitted patient's found to be in DKA. Patient was given fluid bolus along with started on insulin drip. Patient was given antiemetics. Patient had laboratory service showing metabolic acidosis, anion gap. Patient does have significant hyperglycemia. Patient had repeat laboratory studies, continuation of fluids, insulin and antiemetics. Undiagnosed new problem with uncertain prognosis? @ -No Drug Therapy requiring intensive monitoring for toxicity (Heparin, Nitro, Insulin, Cardizem)? @ -No Were any procedures done? @ -No Diagnosis/symptom? @ -DKA Acute, or Chronic, or Acute on Chronic? @ -Acute Uncomplicated (without systemic symptoms) or Complicated (systemic symptoms)? @ -Complicated Side effects of treatment? @ -No Exacerbation, Progression, or Severe Exacerbation? @ -No Poses a threat to life or bodily function? How? (Chest pain, [place], [place], pneumonia, PE, COPD, DKA, ARF, appy, cholecystitis, CVA, Diverticulitis, Homicidal, Suicidal, threat to staff... and all critical care pts) @ -Yes DKA, endorgan failure, - Lab Data Lab Results 02/17/24 Range/Units 02:52 POC Glucose (mg/dL) >600 H* (70-110) mg/dL POC Glu [place] Mixer Operator ID Jaiden Cardoza Critical Care Time Critical Care Time: Yes Total Critical Care Time: 35 Disposition Clinical Impression: Nausea & vomiting, DKA (diabetic ketoacidoses) Disposition: ADMITTED IP TO THIS [facility] Condition: Serious Referrals: Brown Valenzuela MD [Primary Care Provider] - 1-2 days
[2024-02-17] MEDS: SODIUM CHLORIDE 0.9% 2,000 ML IV STA (03:00)
[2024-02-17] MEDS: diphenhydrAMINE 50 MG/ML 1 ML VIAL IVP STA (03:16)
[2024-02-17] MEDS: METOCLOPRAMIDE 5 MG/ML 2 ML VIAL IVP STA (03:17)
[2024-02-17] MEDS: PANTOPRAZOLE 40 MG/10 ML VIAL IVP STA (03:22)
[2024-02-17] MEDS: INSULIN REGULAR BOLUS (FROM DRIP BAG) IV ONE (03:29)
[2024-02-17] MEDS: INSULIN REGULAR 100 UNIT in SODIUM CHLORIDE 0.9% 100 ML IV SCH (03:30)
[2024-02-17 03:35] LABS: Chloride 107 mmol/L (98-107); Potassium 4.9 mmol/L (3.5-5.1); Sodium 139 mmol/L (137-145)
[2024-02-17 03:36] LABS: ALT 18 U/L (4-49); AST 15 U/L (17-59); African American GFR (CKD) >90 (>60 ml/min/1.73 sqM); Alkaline Phosphatase 85 U/L (38-126); Blood Urea Nitrogen 23 mg/dL (9-20); Calcium 7.6 mg/dL (8.4-10.2); Lipase 78 U/L (23-300); Non-African American GFR(CKD) >90 (>60 ml/min/1.73 sqM); Total Bilirubin 0.4 mg/dL (0.2-1.3); Total Protein 4.9 g/dL (6.3-8.2)
[2024-02-17 03:39] LABS: Anisocytosis Slight; Basophils % (A) 0 %; Eosinophils % (A) 0 %; HCT 35.6 % (39.0-53.0); HGB 10.5 gm/dL (13.0-17.5); Hypochromasia Marked; Lymphocytes # (A) 1.7 k/uL (1.0-4.8); Lymphocytes % (A) 18 %; MCHC 29.6 g/dL (31.0-37.0); MCV 101.3 fL (80.0-100.0); Macrocytosis Moderate; Mean Platelet Volume 8.1; Monocytes # (A) 0.3 k/uL (0-1.0); Monocytes % (A) 3 %; Neutrophils # (A) 7.6 k/uL (1.3-7.7); Neutrophils % (A) 78 %; Platelet Count 411 k/uL (150-450); RBC 3.51 m/uL (4.30-5.90); RDW 16.6 % (11.5-15.5); WBC 9.7 k/uL (3.8-10.6)
[2024-02-17] MEDS: SODIUM CHLORIDE 0.9% 1,000 ML IV SCH ×2 (03:51→23:21)
[2024-02-17 03:52] LABS: Carbon Dioxide <5 mmol/L (22-30); Glucose 774 mg/dL (74-99); VBG PH 7.17 (7.31-7.41)
[2024-02-17 04:20] LABS: Glucose,Whole Blood >600 mg/dL (70-110)
[2024-02-17 05:14] LABS: Glucose,Whole Blood >600 mg/dL (70-110)
[2024-02-17 06:13] LABS: Glucose,Whole Blood 500 mg/dL (70-110)
[2024-02-17 07:08] LABS: Glucose,Whole Blood 286 mg/dL (70-110)
[2024-02-17 07:09] LABS: Appearance,Urine Clear (Clear); Bilirubin,Urine Negative (Negative); Blood,Urine Negative (Negative); Color,Urine Colorless; Glucose,Urine (UA) 4+ (Negative); Leukocyte Esterase,Urine Negative (Negative); Nitrite,Urine Negative (Negative); Protein,Urine Negative (Negative); Specific Gravity,Urine 1.026 (1.001-1.035); Urobilinogen,Urine <2.0 mg/dL (<2.0)
[2024-02-17] MEDS: D5-0.45% NACL WITH KCL 20MEQ/L 1,000 ML IV SCH (07:10)
[2024-02-17 07:16] LABS: Ketones,Urine 4+ (Negative)
[2024-02-17 08:02] LABS: Glucose,Whole Blood 238 mg/dL (70-110)
[2024-02-17 08:04] LABS: African American GFR (CKD) >90 (>60 ml/min/1.73 sqM); Anion Gap 25 mmol/L; Blood Urea Nitrogen 30 mg/dL (9-20); Carbon Dioxide 14 mmol/L (22-30); Chloride 108 mmol/L (98-107); Glucose 293 mg/dL (74-99); Non-African American GFR(CKD) 85 (>60 ml/min/1.73 sqM); Phosphorus 2.6 mg/dL (2.5-4.5); Sodium 147 mmol/L (137-145)
[2024-02-17 08:17] LABS: Potassium 4.5 mmol/L (3.5-5.1)
[2024-02-17 09:12] LABS: Glucose,Whole Blood 154 mg/dL (70-110)
[2024-02-17 10:03] LABS: Glucose,Whole Blood 120 mg/dL (70-110)
[2024-02-17 11:18] LABS: Glucose,Whole Blood 143 mg/dL (70-110)
[2024-02-17 12:16] LABS: Glucose,Whole Blood 218 mg/dL (70-110)
[2024-02-17 13:13] LABS: Glucose,Whole Blood 171 mg/dL (70-110)
[2024-02-17 14:15] LABS: Glucose,Whole Blood 145 mg/dL (70-110)
[2024-02-17] MEDS: ONDANSETRON 4 MG/2 ML VIAL IVP PRN (14:26)
[2024-02-17 15:17] LABS: Glucose,Whole Blood 155 mg/dL (70-110)
[2024-02-17 16:19] LABS: Glucose,Whole Blood 158 mg/dL (70-110)
[2024-02-17 17:17] LABS: Glucose,Whole Blood 172 mg/dL (70-110)
[2024-02-17 18:17] LABS: Glucose,Whole Blood 152 mg/dL (70-110)
[2024-02-17 19:14] LABS: Glucose,Whole Blood 164 mg/dL (70-110)
[2024-02-17 20:16] LABS: Glucose,Whole Blood 182 mg/dL (70-110)
[2024-02-17 21:25] LABS: Anisocytosis Slight; Basophils # (A) 0.1 k/uL (0-0.2); Basophils % (A) 1 %; Eosinophils # (A) 0.1 k/uL (0-0.7); Eosinophils % (A) 1 %; HCT 34.9 % (39.0-53.0); Lymphocytes # (A) 1.6 k/uL (1.0-4.8); Lymphocytes % (A) 9 %; MCH 28.7 pg (25.0-35.0); MCHC 31.6 g/dL (31.0-37.0); Mean Platelet Volume 6.6; Monocytes # (A) 1.2 k/uL (0-1.0); Monocytes % (A) 6 %; Neutrophils # (A) 15.5 k/uL (1.3-7.7); Neutrophils % (A) 83 %; Platelet Count 480 k/uL (150-450); RBC 3.85 m/uL (4.30-5.90); RDW 17.1 % (11.5-15.5); WBC 18.7 k/uL (3.8-10.6)
[2024-02-17 21:28] LABS: MCV 90.7 fL (80.0-100.0)
[2024-02-17 21:42] LABS: Glucose,Whole Blood 217 mg/dL (70-110)
[2024-02-17 22:01] LABS: African American GFR (CKD) >90 (>60 ml/min/1.73 sqM); Anion Gap 8 mmol/L; Blood Urea Nitrogen 28 mg/dL (9-20); Carbon Dioxide 25 mmol/L (22-30); Chloride 110 mmol/L (98-107); Non-African American GFR(CKD) >90 (>60 ml/min/1.73 sqM); Phosphorus 3.6 mg/dL (2.5-4.5); Potassium 4.3 mmol/L (3.5-5.1); Sodium 143 mmol/L (137-145)
[2024-02-17 22:44] LABS: Glucose,Whole Blood 237 mg/dL (70-110)
[2024-02-17] MEDS: INSULIN ASPART (NovoLOG) 100 UNIT/ML VIAL SQ SCH (23:21)
[2024-02-18 01:01] LABS: African American GFR (CKD) >90 (>60 ml/min/1.73 sqM); Anion Gap 10 mmol/L; Blood Urea Nitrogen 26 mg/dL (9-20); Carbon Dioxide 23 mmol/L (22-30); Chloride 106 mmol/L (98-107); Non-African American GFR(CKD) >90 (>60 ml/min/1.73 sqM); Sodium 139 mmol/L (137-145)
[2024-02-18 02:16] LABS: Glucose,Whole Blood 138 mg/dL (70-110)
[2024-02-18 04:35] LABS: African American GFR (CKD) >90 (>60 ml/min/1.73 sqM); Anion Gap 8 mmol/L; Blood Urea Nitrogen 24 mg/dL (9-20); Carbon Dioxide 25 mmol/L (22-30); Chloride 102 mmol/L (98-107); Non-African American GFR(CKD) >90 (>60 ml/min/1.73 sqM); Potassium 4.3 mmol/L (3.5-5.1); Sodium 135 mmol/L (137-145)
[2024-02-18] MEDS: INSULIN DETEMIR (LEVEMIR) 100 UNIT/ML SYR SQ SCH (07:16)
[2024-02-18 07:17] LABS: Glucose,Whole Blood 374 mg/dL (70-110)
[2024-02-18] MEDS ORDERED: INSULIN ASPART (NovoLOG) 100 UNIT/ML VIAL SQ SCH (07:30)
[2024-02-18 11:46] LABS: Glucose,Whole Blood 149 mg/dL (70-110)
[2024-02-18 16:48] LABS: Glucose,Whole Blood 158 mg/dL (70-110)
[2024-02-18 19:52] LABS: Glucose,Whole Blood 245 mg/dL (70-110)
[2024-02-19 06:11] LABS: Glucose,Whole Blood 137 mg/dL (70-110)
[2024-02-19 06:11] LABS: Glucose,Whole Blood 101 mg/dL (70-110)
[2024-02-19 09:08] VITALS: RESP 20; TEMP 97.7
[2024-02-19 11:21] LABS: Glucose,Whole Blood 140 mg/dL (70-110)
[2024-02-19 11:51] VITALS: BP 148/93; PULSE 72
--- NOTE | 2024-02-19 14:49 | HP ---
HISTORY AND PHYSICAL CHIEF COMPLAINT: Lethargy and DKA. HISTORY OF PRESENT ILLNESS: Another admission for DKA for this noncompliant and depressed 28-year-old noncompliant type 1 diabetic and back in with a blood sugar of around 700. He is vomiting. REVIEW OF SYSTEMS: Unremarkable other than his lethargy and vomiting. Past medical history, family history, and personal and social histories are unchanged. PHYSICAL EXAMINATION: VITAL SIGNS: Normal except for sinus tachycardia. GENERAL: He is pale and he is dehydrated. He is slightly lethargic. HEAD, EARS, EYES, NOSE, MOUTH AND THROAT: Otherwise normal. CHEST: Clear. CARDIAC: Demonstrates sinus tachycardia. ABDOMEN: Flat, soft, nontender. EXTREMITIES: Normal. NEUROLOGICAL: He is lethargic, but intact. ASSESSMENT: He is admitted to the hospital with diagnoses of, 1. Diabetic ketoacidosis. 2. Depression. PLAN: 1. Bed rest. 2. IV fluids. 3. Insulin management of his DKA. MMODL / TRAMN: [id number] /
--- NOTE | 2024-02-19 14:51 | PN ---
PROGRESS NOTE DATE OF SERVICE: 02/18/2024 CHIEF COMPLAINT: DKA. HISTORY OF PRESENT ILLNESS: This gentleman is improved. Sugars are coming down. He remains somewhat lethargic and nauseated. PHYSICAL EXAM: VITAL SIGNS: Normal. CHEST: Clear. CARDIAC EXAM: Unchanged. IMPRESSION: 1. Diabetic ketoacidosis. 2. Noncompliant patient. 3. Uncontrolled type 1 insulin-dependent diabetes mellitus. 4. Gastroparesis. 5. Depression. PLAN: Continue with regimen controlling his blood sugars. MMODL / IJN: [id number] /
--- NOTE | 2024-02-20 06:04 | DS ---
DISCHARGE SUMMARY CHIEF COMPLAINT: DKA. HISTORY OF PRESENT ILLNESS AND PHYSICAL EXAMINATION: Details of this man's history and physical can be found in the initial workup. LABORATORY STUDIES: While he is in a hospital, he had laboratory studies, details of which can be found in the laboratory section of his chart. COURSE IN THE HOSPITAL: After admission, he was placed on bedrest, started intravenous fluids and DKA protocol. He was nauseated and vomiting, but as his blood sugars came down, he was rehydrated. The nausea went away. He was able to eat. He felt he was doing well enough on the that he could go home. FINAL DIAGNOSES: 1. Diabetic ketoacidosis. 2. Dehydration. 3. Intractable nausea and vomiting. 4. Depression. 5. Noncompliant patient. OPERATIONS: None. CONSULTATION: None, he is improved. MMODL / IJN: [id number] /
== END 2024-02-19 13:18 | disposition home or self-care (01) | DRG 420 ==
LOC: EC 02:49 → 3SCARD 03:16
PROVIDERS: ADMIT Family Medicine; ATTEND Family Medicine
DX: E10.10 Type 1 diabetes mellitus with ketoacidosis without coma (principal); E10.43 Type 1 diabetes mellitus with diabetic autonomic (poly)neuropathy; E86.0 Dehydration; F32.A Depression, unspecified; Z79.4 Long term (current) use of insulin; K31.84 Gastroparesis; E10.42 Type 1 diabetes mellitus with diabetic polyneuropathy; Z91.199 Patient's noncompliance with other medical treatment and regimen due to unspecified reason
CPT/HCPCS: 36415; 80051; 80053; 81003; 82009; 82565; 82803; 82947; 83605; 83690; 84100; 84520; 85025; 93005; 96361; 96365; 96366; 96375; 99291

== ENCOUNTER 2024-02-25 12:09 | Inpatient (IN) | payer OTHER ==
[2024-02-25] MEDS: SODIUM CHLORIDE 0.9% 2,000 ML IV STA (12:19)
[2024-02-25] MEDS: droPERidol 5 MG/2 ML VIAL IVP ONE (12:27)
[2024-02-25 12:28] LABS: VBG PH 7.09 (7.31-7.41)
[2024-02-25] MEDS: SODIUM CHLORIDE 0.9% 500 ML 500 ML IV STA (12:29)
[2024-02-25] MEDS: PANTOPRAZOLE 40 MG/10 ML VIAL IVP STA (12:29)
[2024-02-25 12:38] LABS: ALT 27 U/L (4-49); African American GFR (CKD) 70 (>60 ml/min/1.73 sqM); Albumin 5.4 g/dL (3.5-5.0); Blood Urea Nitrogen 32 mg/dL (9-20); Calcium 10.2 mg/dL (8.4-10.2); Chloride 85 mmol/L (98-107); Lipase 72 U/L (23-300); Magnesium 2.5 mg/dL (1.6-2.3); Non-African American GFR(CKD) 61 (>60 ml/min/1.73 sqM); Sodium 131 mmol/L (137-145); Total Protein 7.7 g/dL (6.3-8.2)
[2024-02-25 12:42] LABS: Basophils # (A) 0.1 k/uL (0-0.2); Basophils % (A) 1 %; Eosinophils % (A) 0 %; HCT 46.3 % (39.0-53.0); HGB 13.1 gm/dL (13.0-17.5); Hypochromasia Marked; Lymphocytes # (A) 1.7 k/uL (1.0-4.8); Lymphocytes % (A) 13 %; MCH 29.1 pg (25.0-35.0); MCHC 28.4 g/dL (31.0-37.0); Macrocytosis Moderate; Mean Platelet Volume 7.7; Monocytes # (A) 0.3 k/uL (0-1.0); Monocytes % (A) 3 %; Neutrophils # (A) 11.2 k/uL (1.3-7.7); Neutrophils % (A) 84 %; Platelet Count 692 k/uL (150-450); RBC 4.52 m/uL (4.30-5.90); WBC 13.4 k/uL (3.8-10.6)
[2024-02-25 12:48] LABS: Carbon Dioxide <5 mmol/L (22-30); Phosphorus 9.9 mg/dL (2.5-4.5)
[2024-02-25 12:51] LABS: Glucose 1062 mg/dL (74-99); Potassium 6.3 mmol/L (3.5-5.1)
[2024-02-25 12:52] LABS: AST 28 U/L (17-59); Alkaline Phosphatase 134 U/L (38-126); MCV 102.4 fL (80.0-100.0)
--- NOTE | 2024-02-25 12:57 | ED ---
General Adult HPI - General Stated complaint: hyperglycemia/NVD/DKA Time Seen by Provider: 02/25/24 12:10 Source: patient, EMS, RN notes reviewed Mode of arrival: EMS Limitations: no limitations - History of Present Illness Initial comments: 28-year-old male presents emergency department chief complaint of hyperglycemia. Patient states he has not taken any insulin since yesterday. Patient is well- known to Emergency Department with recurrent DKA. Patient is also having recent nausea vomiting dark emesis. Patient denies any chest pain, patient does have some shortness of breath. Patient blood sugar read over 600. - Related Data Home Medications Medication Instructions Recorded Confirmed Insulin Lispro 7 units SQ AC-TID 09/17/23 02/25/24 Insulin Detemir [Levemir Flexpen] 30 units SQ DAILY@0700 01/30/24 02/25/24 Allergies Allergy/AdvReac Type Severity Reaction Status Date / Time No Known Allergies Allergy Verified 02/25/24 12:16 Review of Systems ROS Statement: Those systems with pertinent positive or pertinent negative responses have been documented in the HPI. ROS Other: All systems not noted in ROS Statement are negative. Past Medical History Past Medical History: Asthma, Diabetes Mellitus, Neurologic Disorder, Skin Disorder Additional Past Medical History / Comment(s): IDDM type I, neuropathy bilateral feet, DKA, eczema. History of Any Multi-Drug Resistant Organisms: None Reported Past Surgical History: Adenoidectomy Additional Past Surgical History / Comment(s): gastritis Past Anesthesia/Blood Transfusion Reactions: No Reported Reaction Past Psychological History: Anxiety, Depression Smoking Status: Never smoker, Vaper Past Alcohol Use History: Unable to Obtain Past Drug Use History: Unable to Obtain - Past Family History Mother Family Medical History: CVA/TIA Additional Family Medical History / Comment(s): TIA Father Family Medical History: Hyperlipidemia, Hypertension Additional Family Medical History / Comment(s): . General Exam Limitations: no limitations General appearance: alert, in no apparent distress Head exam: Present: atraumatic, normocephalic, normal inspection Eye exam: Present: normal appearance, PERRL, EOMI. Absent: scleral icterus, conjunctival injection, periorbital swelling ENT exam: Present: normal oropharynx, mucous membranes dry. Absent: mucous membranes moist Neck exam: Present: normal inspection. Absent: tenderness, meningismus, lymphadenopathy Respiratory exam: Present: normal lung sounds bilaterally. Absent: respiratory distress, wheezes, rales, rhonchi, stridor Cardiovascular Exam: Present: normal rhythm, tachycardia, normal heart sounds. Absent: systolic murmur, diastolic murmur, rubs, gallop, clicks GI/Abdominal exam: Present: soft, tenderness, normal bowel sounds. Absent: distended, guarding, rebound, rigid Course Vital Signs 02/25/24 02/25/24 02/25/24 12:12 13:48 15:00 Temperature 97.4 F L Pulse Rate 128 H 128 H 121 H Respiratory 24 18 16 Rate Blood Pressure 100/68 86/50 84/46 O2 Sat by Pulse 100 97 97 Oximetry EKG Findings - EKG Comments: EKG Findings:: EKG performed at 12: 14 sinus tachycardia rate of 125 QRS 148 QRS 102 QT/QTc 315/389 - EKG Results: EKG: interpreted by JOANNE Medical Decision Making - Medical Decision Making Was pt. sent in by a medical professional or institution (, PA, INSPECTOR CIRCUITRY NEGATIVE, urgent care, hospital, or intermediate...) When possible be specific @ -No Did you speak to anyone other than the patient for history (EMS, parent, family, police, friend...)? What history was obtained from this source @ -No Did you review nursing and triage notes (agree or disagree)? Why? @ -I reviewed and agree with nursing and triage notes Were old charts reviewed (outside hosp., previous admission, EMS record, old EKG, old radiological studies, urgent care reports/EKG's, intermediate records)? Report findings @ -Reviewed prior inpatient records, CBC, CMP, EKG Differential Diagnosis (chest pain, altered mental status, abdominal pain women, abdominal pain men, vaginal bleeding, weakness, fever, dyspnea, syncope, headache, dizziness, GI bleed, back pain, seizure, CVA, palpatations, mental health, musculoskeletal)? @ -Hyperglycemia, nausea vomiting, DKA, HHS EKG interpreted by me (3pts min.). @ -As above X-rays interpreted by me (1pt min.). @ -None done CT interpreted by me (1pt min.). @ -None done U/S interpreted by me (1pt. min.). @ -None done What testing was considered but not performed or refused? (CT, X-rays, U/S, labs)? Why? @ -None What meds were considered but not given or refused? Why? @ -None Did you discuss the management of the patient with other professionals (professionals i.e. , PA, INSPECTOR CIRCUITRY NEGATIVE, lab, RT, psych nurse, social work supervisor, activities concierge, teacher, disability insurance hearing officer, classification case manager)? Give summary @ -Dr. Valenzuela for admission Was smoking cessation discussed for >3mins.? @ -No Was critical care preformed (if so, how long)? @ -35 minutes Were there social determinants of health that impacted care today? How? (Homelessness, low income, unemployed, alcoholism, drug addiction, transportation, low edu. Level, literacy, decrease access to med. care, intermediate, rehab)? @ -No Was there de-escalation of care discussed even if they declined (Discuss DNR or withdrawal of care, Hospice)? DNR status @ -No What co-morbidities impacted this encounter? (DM, HTN, Smoking, COPD, CAD, Cancer, CVA, ARF, Chemo, Hep., AIDS, mental health diagnosis, sleep apnea, morbid obesity)? @ -Diabetes Was patient admitted / discharged? Hospital course, mention meds given and route, prescriptions, significant lab abnormalities, going to OR and other pertinent info. @ -Manage patient is presented for hypoglycemia. Patient is found to be in DKA, pH 7.09 with bicarb of 6 pCO2 of 19. Patient's lactic acid elevated 5.2 patient does have hyperglycemia. Patient was started and fluid bolus including 2 and half liters, maintenance fluids, insulin drip with insulin bolus. Patient will have repeat laboratory studies every 4 hours patient's case discussed with admitting physician. Undiagnosed new problem with uncertain prognosis? @ -No Drug Therapy requiring intensive monitoring for toxicity (Heparin, Nitro, Insulin, Cardizem)? @ -No Were any procedures done? @ -No Diagnosis/symptom? @ -DKA Acute, or Chronic, or Acute on Chronic? @ -Acute Uncomplicated (without systemic symptoms) or Complicated (systemic symptoms)? @ -Complicated Side effects of treatment? @ -No Exacerbation, Progression, or Severe Exacerbation? @ -No Poses a threat to life or bodily function? How? (Chest pain, [place], [place], pneumonia, PE, COPD, DKA, ARF, appy, cholecystitis, CVA, Diverticulitis, Homicidal, Suicidal, threat to staff... and all critical care pts) @ -Yes DKA, endorgan failure - Lab Data Result diagrams: 02/25/24 12:18 02/25/24 12:18 Lab Results 02/25/24 02/25/24 02/25/24 Range/Units 12:18 12:18 12:18 WBC 13.4 H (3.8-10.6) k/uL RBC 4.52 (4.30-5.90) m/uL Hgb 13.1 (13.0-17.5) gm/dL Hct 46.3 (39.0-53.0) % MCV 102.4 H D (80.0-100.0) fL MCH 29.1 (25.0-35.0) pg MCHC 28.4 L (31.0-37.0) g/dL RDW 16.0 H (11.5-15.5) % Plt Count 692 H (150-450) k/uL MPV 7.7 Neutrophils % 84 % Lymphocytes % 13 % Monocytes % 3 % Eosinophils % 0 % Basophils % 1 % Neutrophils # 11.2 H (1.3-7.7) k/uL Lymphocytes # 1.7 (1.0-4.8) k/uL Monocytes # 0.3 (0-1.0) k/uL Eosinophils # 0.0 (0-0.7) k/uL Basophils # 0.1 (0-0.2) k/uL Hypochromasia Marked Macrocytosis Moderate VBG pH (7.31-7.41) VBG pCO2 (37-51) mmHg VBG HCO3 (24-28) mmol/L Sodium 131 L (137-145) mmol/L Potassium 6.3 H* (3.5-5.1) mmol/L Chloride 85 L (98-107) mmol/L Carbon Dioxide <5 L* (22-30) mmol/L Anion Gap mmol/L BUN 32 H (9-20) mg/dL Creatinine 1.55 H (0.66-1.25) mg/dL Est GFR (CKD-EPI)AfAm 70 (>60 ml/min/1.73 sqM) Est GFR (CKD-EPI)NonAf 61 (>60 ml/min/1.73 sqM) Glucose 1062 H* (74-99) mg/dL Lactic Ac Sepsis Rflx Plasma Lactic Acid Len 5.2 H* (0.7-2.0) mmol/L Calcium 10.2 (8.4-10.2) mg/dL Phosphorus 9.9 H* (2.5-4.5) mg/dL Magnesium 2.5 H (1.6-2.3) mg/dL Total Bilirubin 1.0 (0.2-1.3) mg/dL AST 28 (17-59) U/L ALT 27 (4-49) U/L Alkaline Phosphatase 134 H (38-126) U/L Total Protein 7.7 (6.3-8.2) g/dL Albumin 5.4 H (3.5-5.0) g/dL Lipase 72 (23-300) U/L Acetone, Qual Positive (Negative) 02/25/24 02/25/24 Range/Units 12:18 12:51 WBC (3.8-10.6) k/uL RBC (4.30-5.90) m/uL Hgb (13.0-17.5) gm/dL Hct (39.0-53.0) % MCV (80.0-100.0) fL MCH (25.0-35.0) pg MCHC (31.0-37.0) g/dL RDW (11.5-15.5) % Plt Count (150-450) k/uL MPV Neutrophils % % Lymphocytes % % Monocytes % % Eosinophils % % Basophils % % Neutrophils # (1.3-7.7) k/uL Lymphocytes # (1.0-4.8) k/uL Monocytes # (0-1.0) k/uL Eosinophils # (0-0.7) k/uL Basophils # (0-0.2) k/uL Hypochromasia Macrocytosis VBG pH 7.09 L* (7.31-7.41) VBG pCO2 19 L (37-51) mmHg VBG HCO3 6 L* (24-28) mmol/L Sodium (137-145) mmol/L Potassium (3.5-5.1) mmol/L Chloride (98-107) mmol/L Carbon Dioxide (22-30) mmol/L Anion Gap mmol/L BUN (9-20) mg/dL Creatinine (0.66-1.25) mg/dL Est GFR (CKD-EPI)AfAm (>60 ml/min/1.73 sqM) Est GFR (CKD-EPI)NonAf (>60 ml/min/1.73 sqM) Glucose (74-99) mg/dL Lactic Ac Sepsis Rflx Y Plasma Lactic Acid Len (0.7-2.0) mmol/L Calcium (8.4-10.2) mg/dL Phosphorus (2.5-4.5) mg/dL Magnesium (1.6-2.3) mg/dL Total Bilirubin (0.2-1.3) mg/dL AST (17-59) U/L ALT (4-49) U/L Alkaline Phosphatase (38-126) U/L Total Protein (6.3-8.2) g/dL Albumin (3.5-5.0) g/dL Lipase (23-300) U/L Acetone, Qual (Negative) Critical Care Time Critical Care Time: Yes Total Critical Care Time: 35 Disposition Clinical Impression: DKA (diabetic ketoacidosis) Disposition: ADMITTED IP TO THIS [facility] Condition: Serious Time of Disposition: 13:08
[2024-02-25] MEDS: SODIUM CHLORIDE 0.9% 1,000 ML IV SCH (13:44)
[2024-02-25] MEDS: INSULIN REGULAR 100 UNIT in SODIUM CHLORIDE 0.9% 100 ML IV SCH (13:45)
[2024-02-25] MEDS: INSULIN REGULAR BOLUS (FROM DRIP BAG) IV ONE (13:46)
[2024-02-25 16:27] LABS: African American GFR (CKD) 82 (>60 ml/min/1.73 sqM); Anion Gap 30 mmol/L; Blood Urea Nitrogen 33 mg/dL (9-20); Chloride 105 mmol/L (98-107); Non-African American GFR(CKD) 71 (>60 ml/min/1.73 sqM); Sodium 141 mmol/L (137-145)
[2024-02-25 16:28] LABS: Appearance,Urine Clear (Clear); Bilirubin,Urine Negative (Negative); Blood,Urine Negative (Negative); Color,Urine Colorless; Glucose,Urine (UA) 4+ (Negative); Leukocyte Esterase,Urine Negative (Negative); Nitrite,Urine Negative (Negative); Protein,Urine Negative (Negative); Specific Gravity,Urine 1.021 (1.001-1.035); Urobilinogen,Urine <2.0 mg/dL (<2.0)
[2024-02-25 16:56] LABS: Glucose 539 mg/dL (74-99)
[2024-02-25 16:56] LABS: Ketones,Urine 4+ (Negative)
[2024-02-25 16:57] LABS: Carbon Dioxide 6 mmol/L (22-30)
[2024-02-25] MEDS: D5-0.45% NACL WITH KCL 20MEQ/L 1,000 ML IV SCH (18:45)
[2024-02-25] MEDS: PANTOPRAZOLE 40 MG/10 ML VIAL IVP SCH (20:24)
[2024-02-25 20:44] LABS: African American GFR (CKD) >90 (>60 ml/min/1.73 sqM); Anion Gap 17 mmol/L; Blood Urea Nitrogen 31 mg/dL (9-20); Carbon Dioxide 20 mmol/L (22-30); Chloride 108 mmol/L (98-107); Glucose 175 mg/dL (74-99); Non-African American GFR(CKD) >90 (>60 ml/min/1.73 sqM); Phosphorus 3.4 mg/dL (2.5-4.5); Potassium 4.8 mmol/L (3.5-5.1); Sodium 145 mmol/L (137-145)
[2024-02-26 00:42] LABS: Phosphorus 3.6 mg/dL (2.5-4.5); Potassium 4.5 mmol/L (3.5-5.1)
[2024-02-26 01:30] LABS: African American GFR (CKD) >90 (>60 ml/min/1.73 sqM); Glucose 163 mg/dL (74-99); Non-African American GFR(CKD) >90 (>60 ml/min/1.73 sqM)
[2024-02-26] MEDS: INSULIN ASPART (NovoLOG) 100 UNIT/ML VIAL SQ SCH ×2 (02:19→08:12)
[2024-02-26] MEDS: INSULIN NPH 100 UNIT/ML 10 ML VIAL SQ ONE (02:42)
--- NOTE | 2024-02-26 07:18 | P.CNPUL ---
History of Present Illness Consult date: 02/26/24 Requesting physician: Cirilo Raymond Reason for consult: other (DKA; ICU management) Chief complaint: Elevated blood sugar, altered mental status, nausea and vomiting History of present illness: Patient is a 28-year-old white male with history of type 1 diabetes melitis and medication noncompliance. He has had numerous hospital admissions for DKA, and was recently discharged on February 18 for the same. He presented to the ED yesterday afternoon, Labs consistent with severe diabetic ketoacidosis. Patient present emergency department yesterday afternoon. His blood sugars were reading greater than 600 while at home. Followed by nausea and vomiting. Denies hematemesis. Denies abdominal pain, diarrhea. Reportedly had not taken any insulin since the day prior. Labs consistent with DKA on arrival. Blood glucose 1062, serum bicarb less than 5, anion gap unmeasurable. He is acetone positive. He is admitted with diabetic ketoacidosis and started on the DKA protocol. Plan was to admit patient to the intensive care unit. Patient currently being evaluated in the emergency department as a ICU hold. He is alert and oriented. No acute distress. Nontachypneic or tachycardic. Most recent BMP includes a sodium 137, potassium 4.5, chloride 108, serum bicarb 20, BUN 28, creatinine 0.72, glucose down to 163. He did have some hyperkalemia associated with his acidosis with a potassium of 6.3 this is sent been corrected and is down to 4.5. Lactic acidosis is improved from 5.2 and is down to 2. Patient now tolerating clear liquids. No further vomiting. Continues on insulin infusion. D5W/0.45% saline/20 mEq potassium infusing at 150 mL/h. He has no specific complaints at this time. Vital signs are stable. Review of Systems Constitutional: Reports fatigue, Denies chills, Denies fever, Denies weight gain , Denies weight loss Ears, nose, mouth and throat: Denies headache, Denies nasal congestion, Denies nasal discharge, Denies post-nasal drip, Denies sinus pain, Denies sinus pr essure, Denies sore throat Cardiovascular: Denies chest pain, Denies irregular heart beat, Denies orthopnea, Denies palpitations, Denies paroxysmal nocturnal dyspnea, Denies s hortness of breath, Denies syncope Respiratory: Denies congestion, Denies cough, Denies cough with sputum, Denies dyspnea, Denies respiratory infections Gastrointestinal: Reports nausea, Reports vomiting, Denies abdominal pain, Denies change in bowel habits, Denies coffee ground emesis, Denies constipation, Denies diarrhea Genitourinary: Denies dysuria, Denies flank pain, Denies urinary frequency Musculoskeletal: Denies limitation of motion Integumentary: Denies rash Neurological: Denies confusion, Denies headaches, Denies memory loss, Denies s eizures, Denies visual changes Psychiatric: Denies anxiety, Denies depression Endocrine: Reports high blood sugars, Reports polydipsia, Reports polyuria Past Medical History Past Medical History: Asthma, Diabetes Mellitus, Neurologic Disorder, Skin Disorder Additional Past Medical History / Comment(s): IDDM type I, neuropathy bilateral feet, DKA, eczema. History of Any Multi-Drug Resistant Organisms: None Reported Past Surgical History: Adenoidectomy Additional Past Surgical History / Comment(s): gastritis Past Anesthesia/Blood Transfusion Reactions: No Reported Reaction Past Psychological History: Anxiety, Depression Smoking Status: Never smoker, Vaper Past Alcohol Use History: Unable to Obtain Past Drug Use History: Unable to Obtain - Past Family History Mother Family Medical History: CVA/TIA Additional Family Medical History / Comment(s): TIA Father Family Medical History: Hyperlipidemia, Hypertension Additional Family Medical History / Comment(s): . Medications and Allergies Home Medications Medication Instructions Recorded Confirmed Type Insulin Lispro 7 units SQ AC-TID 09/17/23 02/25/24 History Insulin Detemir [Levemir Flexpen] 30 units SQ DAILY@0700 01/30/24 02/25/24 Hi story Allergies Allergy/AdvReac Type Severity Reaction Status Date / Time No Known Allergies Allergy Verified 02/25/24 12:16 Physical Exam Vitals: Vital Signs Temp Pulse Resp BP Pulse Ox 02/25/24 23:00 115 H 18 130/85 98 02/25/24 22:00 135 H 17 118/80 97 02/25/24 21:00 125 H 18 106/68 98 02/25/24 19:07 121 H 16 101/67 97 02/25/24 18:00 123 H 18 100/59 96 02/25/24 15:00 121 H 16 84/46 97 02/25/24 13:48 128 H 18 86/50 97 02/25/24 12:12 97.4 F L 128 H 24 100/68 100 Intake and Output 02/25/24 02/25/24 02/26/24 14:59 22:59 06:59 Intake Total 40.019 3.885 Output Total 550 Balance -509.981 3.885 Intake: Intake, IV Titration 40.019 3.885 Amount Insulin Regular 100 unit 40.019 3.885 In Sodium Chloride 0.9% 100 ml @ 0.1 UNITS/KG/HR 5.039 mls/hr IV .Q20H3M [facility] Rx#:[id number] Output: Urine 550 Other: Weight 49.895 kg GENERAL EXAM: Alert, 28-year-old male, disheveled, dried brown emesis on bed, comfortable in no apparent distress. HEAD: Normocephalic and atraumatic EYES: Normal reaction of pupils, equal size. NOSE: Clear with pink turbinates. THROAT: No erythema or exudates. NECK: No masses, no JVD. CHEST: No chest wall deformity. LUNGS: Equal air entry with no crackles, wheeze, rhonchi or dullness. On room air. No conversational dyspnea or accessory muscle use.. CVS: S1 and S2 normal with no audible murmur, regular rhythm. No extra heart sounds ABDOMEN: No hepatosplenomegaly, active bowel sounds, no guarding or rigidity. SPINE: No scoliosis or deformity SKIN: No rashes CENTRAL NERVOUS SYSTEM: No focal deficits, tone is normal in all 4 extremities. EXTREMITIES: There is no peripheral edema, clubbing, or cyanosis. Peripheral pulses are intact. Results - Laboratory Findings CBC and BMP: 02/25/24 12:18 02/26/24 00:10 Abnormal lab findings: Abnormal Labs 02/25/24 02/25/24 02/25/24 12:18 12:18 12:18 WBC 13.4 H MCV 102.4 H D MCHC 28.4 L RDW 16.0 H Plt Count 692 H Neutrophils # 11.2 H VBG pH VBG pCO2 VBG HCO3 Sodium 131 L Potassium 6.3 H* Chloride 85 L Carbon Dioxide <5 L* BUN 32 H Creatinine 1.55 H Glucose 1062 H* Plasma Lactic Acid Len Phosphorus 9.9 H* Magnesium 2.5 H Alkaline Phosphatase 134 H Albumin 5.4 H Urine Glucose (UA) 4+ H Urine Ketones 4+ H 02/25/24 02/25/24 02/25/24 12:18 12:18 15:46 WBC MCV MCHC RDW Plt Count Neutrophils # VBG pH 7.09 L* VBG pCO2 19 L VBG HCO3 6 L* Sodium Potassium Chloride Carbon Dioxide BUN Creatinine Glucose Plasma Lactic Acid Len 5.2 H* Phosphorus 5.8 H Magnesium Alkaline Phosphatase Albumin Urine Glucose (UA) Urine Ketones 02/25/24 02/25/24 02/25/24 15:46 15:46 19:33 WBC MCV MCHC RDW Plt Count Neutrophils # VBG pH VBG pCO2 VBG HCO3 Sodium Potassium Chloride 108 H Carbon Dioxide 6 L* 20 L BUN 33 H 31 H Creatinine 1.37 H Glucose 539 H* 175 H Plasma Lactic Acid Len 3.6 H* Phosphorus Magnesium Alkaline Phosphatase Albumin Urine Glucose (UA) Urine Ketones 02/26/24 02/26/24 00:10 00:10 WBC MCV MCHC RDW Plt Count Neutrophils # VBG pH VBG pCO2 VBG HCO3 Sodium Potassium Chloride 108 H Carbon Dioxide 20 L BUN 28 H Creatinine Glucose 163 H Plasma Lactic Acid Len Phosphorus Magnesium Alkaline Phosphatase Albumin Urine Glucose (UA) Urine Ketones Assessment and Plan Assessment: Acute diabetic ketoacidosis, secondary to medication noncompliance. Patient has had numerous hospital admissions for DKA. Severe anion gap metabolic acidosis, secondary to above and lactic acidosis Severe hyperkalemia, corrected and down to 4.5 Severe dehydration Acute kidney injury, secondary to above, resolved Acute leukocytosis, likely reactive to DKA Type 1 diabetes mellitus, with poor medication compliance Diabetic neuropathy History of gastritis History of major depression Plan: Patient initially going to be admitted to the unit for diabetic ketoacidosis. He was treated with the DKA protocol. Most recent labs showing a bicarb up to 20, anion gap closed at 9, glucose 100- 200 mg/dl Patient will be transitioned to subcutaneous insulin per protocol Continue to monitor electrolytes and replace per protocol Patient educated on the importance of diabetic medication compliance He is tolerating clear liquids We will order patient diet Protonix BID He will be downgraded to general medical floor. I have personally seen and examined the patient, performed the documentation and the assessment and plan as written. Number of minutes spent on the visit:20 Time with Patient: Greater than 30
[2024-02-26 08:22] LABS: Anisocytosis Slight; Basophils # (A) 0.1 k/uL (0-0.2); Basophils % (A) 0 %; Eosinophils # (A) 0.2 k/uL (0-0.7); Eosinophils % (A) 1 %; HCT 33.4 % (39.0-53.0); HGB 10.4 gm/dL (13.0-17.5); Hypochromasia Slight; Lymphocytes # (A) 2.7 k/uL (1.0-4.8); Lymphocytes % (A) 15 %; MCH 28.8 pg (25.0-35.0); MCHC 31.2 g/dL (31.0-37.0); Mean Platelet Volume 6.6; Monocytes # (A) 0.9 k/uL (0-1.0); Monocytes % (A) 5 %; Neutrophils # (A) 14.1 k/uL (1.3-7.7); Neutrophils % (A) 77 %; Platelet Count 523 k/uL (150-450); RBC 3.62 m/uL (4.30-5.90); RDW 16.6 % (11.5-15.5); WBC 18.4 k/uL (3.8-10.6)
[2024-02-26] MEDS: INSULIN DETEMIR (LEVEMIR) 100 UNIT/ML SYR SQ SCH (08:29)
[2024-02-26 08:33] LABS: MCV 92.5 fL (80.0-100.0)
[2024-02-26 08:39] LABS: African American GFR (CKD) >90 (>60 ml/min/1.73 sqM); Anion Gap 13 mmol/L; Blood Urea Nitrogen 20 mg/dL (9-20); Calcium 8.6 mg/dL (8.4-10.2); Carbon Dioxide 18 mmol/L (22-30); Chloride 99 mmol/L (98-107); Glucose 173 mg/dL (74-99); Non-African American GFR(CKD) >90 (>60 ml/min/1.73 sqM); Potassium 4.3 mmol/L (3.5-5.1); Sodium 130 mmol/L (137-145)
[2024-02-26 13:21] VITALS: BMI 17.7
[2024-02-26 16:58] LABS: Glucose,Whole Blood 165 mg/dL (70-110)
[2024-02-26 19:58] LABS: Glucose,Whole Blood 181 mg/dL (70-110)
[2024-02-27 03:55] LABS: Glucose,Whole Blood 183 mg/dL (70-110)
[2024-02-27 06:58] LABS: Glucose,Whole Blood 162 mg/dL (70-110)
[2024-02-27 06:59] LABS: Glucose,Whole Blood 154 mg/dL (70-110)
[2024-02-27 06:59] LABS: Glucose,Whole Blood 163 mg/dL (70-110)
[2024-02-27 06:59] LABS: Glucose,Whole Blood 206 mg/dL (70-110)
[2024-02-27 06:59] LABS: Glucose,Whole Blood 202 mg/dL (70-110)
[2024-02-27 06:59] LABS: Glucose,Whole Blood 179 mg/dL (70-110)
[2024-02-27 06:59] LABS: Glucose,Whole Blood 135 mg/dL (70-110)
[2024-02-27 07:00] LABS: Glucose,Whole Blood 139 mg/dL (70-110)
[2024-02-27 07:01] LABS: Glucose,Whole Blood 154 mg/dL (70-110)
[2024-02-27 07:01] LABS: Glucose,Whole Blood 234 mg/dL (70-110)
[2024-02-27 07:01] LABS: Glucose,Whole Blood 191 mg/dL (70-110)
[2024-02-27 07:01] LABS: Glucose,Whole Blood 374 mg/dL (70-110)
[2024-02-27 07:02] LABS: Glucose,Whole Blood 580 mg/dL (70-110)
[2024-02-27 07:02] LABS: Glucose,Whole Blood >600 mg/dL (70-110)
[2024-02-27 07:02] LABS: Glucose,Whole Blood >600 mg/dL (70-110)
[2024-02-27 07:02] LABS: Glucose,Whole Blood 454 mg/dL (70-110)
[2024-02-27 07:09] LABS: Glucose,Whole Blood 279 mg/dL (70-110)
[2024-02-27 08:47] LABS: BUN/Creat Ratio 7.89 Ratio (12.00-20.00); Blood Urea Nitrogen 7.1 mg/dL (9.0-27.0); Calcium 8.3 mg/dL (8.7-10.3); Carbon Dioxide 24.6 mmol/L (21.6-31.8); Chloride 99 mmol/L (96-109); Glucose 217 mg/dL (70-110); Potassium 4.1 mmol/L (3.5-5.5); Sodium 137 mmol/L (135-145)
[2024-02-27 09:24] LABS: Basophils # (A) 0.03 X 10*3/uL (0.00-0.10); Basophils % (A) 0.3 %; Eosinophils # (A) 0.13 X 10*3/uL (0.04-0.35); Eosinophils % (A) 1.5 %; HCT 30.3 % (39.6-50.0); HGB 9.8 g/dL (13.0-17.0); Lymphocytes # (A) 2.45 X 10*3/uL (0.90-5.00); Lymphocytes % (A) 28.5 %; MCH 28.3 pg (27.0-32.0); MCHC 32.3 g/dL (32.0-37.0); MCV 87.6 FL (80.0-97.0); Mean Platelet Volume 8.8 FL (9.5-12.2); Monocytes # (A) 0.78 X 10*3/uL (0.20-1.00); Monocytes % (A) 9.1 %; NRBC Per 100 WBC 0 X 10*3/uL (0.00-0.01); Neutrophils # (A) 5.17 X 10*3/uL (1.80-7.70); Neutrophils % (A) 60.3 %; Platelet Count 390 X 10*3/uL (140-440); RBC 3.46 X 10*6/uL (4.40-5.60); RDW 16.7 % (11.5-14.5); WBC 8.59 X 10*3/uL (4.50-10.00)
[2024-02-27 12:34] LABS: Glucose,Whole Blood 174 mg/dL (70-110)
--- NOTE | 2024-02-27 12:38 | P.PN ---
Subjective Progress Note Date: 02/27/24 Patient is a 28-year-old white male with history of type 1 diabetes melitis and medication noncompliance. He has had numerous hospital admissions for DKA, and was recently discharged on February 18 for the same. He presented to the ED yesterday afternoon, Labs consistent with severe diabetic ketoacidosis. Patient present emergency department yesterday afternoon. His blood sugars were reading greater than 600 while at home. Followed by nausea and vomiting. Denies hematemesis. Denies abdominal pain, diarrhea. Reportedly had not taken any insulin since the day prior. Labs consistent with DKA on arrival. Blood glucose 1062, serum bicarb less than 5, anion gap unmeasurable. He is acetone positive. He is admitted with diabetic ketoacidosis and started on the DKA protocol. Plan was to admit patient to the intensive care unit. Patient currently being evaluated in the emergency department as a ICU hold. He is alert and oriented. No acute distress. Nontachypneic or tachycardic. Most re cent BMP includes a sodium 137, potassium 4.5, chloride 108, serum bicarb 20, BUN 28, creatinine 0.72, glucose down to 163. He did have some hyperkalemia associated with his acidosis with a potassium of 6.3 this is sent been corrected and is down to 4.5. Lactic acidosis is improved from 5.2 and is down to 2. Patient now tolerating clear liquids. No further vomiting. Continues on insulin infusion. D5W/0.45% saline/20 mEq potassium infusing at 150 mL/h. He has no specific complaints at this time. Vital signs are stable. The patient is seen today February 27, 2024 in follow-up on the regular medical floor. He did not require ICU admission. He is awake and alert in no acute distress. Maintaining good O2 saturations in the 90s on room air. He has been afebrile. Hemodynamically stable. White count 8.5. Hemoglobin 9.8. Platelets 390. Sodium 137. Potassium 4.1. Bicarb 25. BUN 7. Creatinine 0.9. Glucose 217. Anion gap 13. He has been transition to Levemir 30 units subcutaneous daily along with a NovoLog sliding scale. He is tolerating a diet. Objective - Vital Signs Vital signs: Vital Signs Temp 97.5 F L 02/27/24 07:44 Pulse 86 02/27/24 07:44 Resp 14 02/27/24 07:44 BP 132/92 02/27/24 07:44 Pulse Ox 100 02/27/24 07:44 FiO2 Intake & Output 02/26/24 02/27/24 02/27/24 18:59 06:59 18:59 Intake Total 960 Balance 960 Weight 49.895 kg Intake: Oral 960 Other: # Voids 2 - Exam GENERAL EXAM: Alert, thin, pleasant 28-year-old male, on room air, comfortable in no apparent distress. HEAD: Normocephalic. EYES: Normal reaction of pupils, equal size. NOSE: Clear with pink turbinates. THROAT: No erythema or exudates. NECK: No masses, no JVD. CHEST: No chest wall deformity. LUNGS: Equal air entry with no crackles, wheeze, rhonchi or dullness. CVS: S1 and S2 normal with no audible murmur, regular rhythm. ABDOMEN: No hepatosplenomegaly, normal bowel sounds, no guarding or rigidity. SPINE: No scoliosis or deformity SKIN: No rashes CENTRAL NERVOUS SYSTEM: No focal deficits, tone is normal in all 4 extremities. EXTREMITIES: There is no peripheral edema. No clubbing, no cyanosis. Peripheral pulses are intact. - Labs CBC & Chem 7: 02/27/24 04:52 02/27/24 04:48 Labs: Abnormal Lab Results - Last 24 Hours (Table) 02/25/24 02/25/24 02/25/24 Range/Units 12:11 13:42 15:31 RBC (4.40-5.60) X 10*6/uL Hgb (13.0-17.0) g/dL Hct (39.6-50.0) % RDW (11.5-14.5) % MPV (9.5-12.2) FL Anion Gap (4.00-12.00) mmol/L BUN (9.0-27.0) mg/dL BUN/Creatinine Ratio (12.00-20.00) Ratio Glucose (70-110) mg/dL POC Glucose (mg/dL) >600 H* >600 H* 580 H* (70-110) mg/dL Calcium (8.7-10.3) mg/dL 02/25/24 02/25/24 02/25/24 Range/Units 16:04 17:07 18:10 RBC (4.40-5.60) X 10*6/uL Hgb (13.0-17.0) g/dL Hct (39.6-50.0) % RDW (11.5-14.5) % MPV (9.5-12.2) FL Anion Gap (4.00-12.00) mmol/L BUN (9.0-27.0) mg/dL BUN/Creatinine Ratio (12.00-20.00) Ratio Glucose (70-110) mg/dL POC Glucose (mg/dL) 454 H 374 H 234 H (70-110) mg/dL Calcium (8.7-10.3) mg/dL 02/25/24 02/25/24 02/25/24 Range/Units 19:12 20:13 21:02 RBC (4.40-5.60) X 10*6/uL Hgb (13.0-17.0) g/dL Hct (39.6-50.0) % RDW (11.5-14.5) % MPV (9.5-12.2) FL Anion Gap (4.00-12.00) mmol/L BUN (9.0-27.0) mg/dL BUN/Creatinine Ratio (12.00-20.00) Ratio Glucose (70-110) mg/dL POC Glucose (mg/dL) 191 H 154 H 139 H (70-110) mg/dL Calcium (8.7-10.3) mg/dL 02/25/24 02/25/24 02/26/24 Range/Units 22:19 23:13 00:08 RBC (4.40-5.60) X 10*6/uL Hgb (13.0-17.0) g/dL Hct (39.6-50.0) % RDW (11.5-14.5) % MPV (9.5-12.2) FL Anion Gap (4.00-12.00) mmol/L BUN (9.0-27.0) mg/dL BUN/Creatinine Ratio (12.00-20.00) Ratio Glucose (70-110) mg/dL POC Glucose (mg/dL) 135 H 154 H 163 H (70-110) mg/dL Calcium (8.7-10.3) mg/dL 02/26/24 02/26/24 02/26/24 Range/Units 01:23 02:14 07:53 RBC (4.40-5.60) X 10*6/uL Hgb (13.0-17.0) g/dL Hct (39.6-50.0) % RDW (11.5-14.5) % MPV (9.5-12.2) FL Anion Gap (4.00-12.00) mmol/L BUN (9.0-27.0) mg/dL BUN/Creatinine Ratio (12.00-20.00) Ratio Glucose (70-110) mg/dL POC Glucose (mg/dL) 179 H 202 H 162 H (70-110) mg/dL Calcium (8.7-10.3) mg/dL 02/26/24 02/26/24 02/26/24 Range/Units 11:30 16:53 19:57 RBC (4.40-5.60) X 10*6/uL Hgb (13.0-17.0) g/dL Hct (39.6-50.0) % RDW (11.5-14.5) % MPV (9.5-12.2) FL Anion Gap (4.00-12.00) mmol/L BUN (9.0-27.0) mg/dL BUN/Creatinine Ratio (12.00-20.00) Ratio Glucose (70-110) mg/dL POC Glucose (mg/dL) 206 H 165 H 181 H (70-110) mg/dL Calcium (8.7-10.3) mg/dL 02/27/24 02/27/24 02/27/24 Range/Units 03:53 04:48 04:52 RBC 3.46 L (4.40-5.60) X 10*6/uL Hgb 9.8 L (13.0-17.0) g/dL Hct 30.3 L (39.6-50.0) % RDW 16.7 H (11.5-14.5) % MPV 8.8 L (9.5-12.2) FL Anion Gap 13.40 H (4.00-12.00) mmol/L BUN 7.1 L (9.0-27.0) mg/dL BUN/Creatinine Ratio 7.89 L (12.00-20.00) Ratio Glucose 217 H (70-110) mg/dL POC Glucose (mg/dL) 183 H (70-110) mg/dL Calcium 8.3 L (8.7-10.3) mg/dL 02/27/24 Range/Units 07:06 RBC (4.40-5.60) X 10*6/uL Hgb (13.0-17.0) g/dL Hct (39.6-50.0) % RDW (11.5-14.5) % MPV (9.5-12.2) FL Anion Gap (4.00-12.00) mmol/L BUN (9.0-27.0) mg/dL BUN/Creatinine Ratio (12.00-20.00) Ratio Glucose (70-110) mg/dL POC Glucose (mg/dL) 279 H (70-110) mg/dL Calcium (8.7-10.3) mg/dL Assessment and Plan Assessment: Acute diabetic ketoacidosis, secondary to medication noncompliance. Patient has had numerous hospital admissions for DKA Severe anion gap metabolic acidosis, secondary to above and lactic acidosis, recovered Severe hyperkalemia, corrected and down to 4.1 Severe dehydration recovered Acute kidney injury, secondary to above, resolved Acute leukocytosis, likely reactive to DKA, improved Type 1 diabetes mellitus, with poor medication compliance Diabetic neuropathy History of gastritis History of major depression Plan: The patient was seen and evaluated Labs and medications reviewed Stable and on room air Tolerating a diet Cleared for discharge Educated again regarding the importance of medication compliance Educated again regarding the importance of medical follow-ups This patient was seen independently by the pulmonary nurse practitioner addressing pulmonary/critical care issues I have personally seen and examined the patient, performed the documentation and the assessment and plan as written. Number of minutes spent on the visit: 24.
[2024-02-27 13:09] VITALS: BP 118/80; PULSE 70; RESP 17; TEMP 98.2
--- NOTE | 2024-02-27 21:52 | PN ---
PROGRESS NOTE DATE OF SERVICE: 02/26/2024 CHIEF COMPLAINT: Diabetic ketoacidosis. HISTORY OF PRESENT ILLNESS: This gentleman is doing better. He is still somewhat weak. He is starting to eat. PHYSICAL EXAMINATION: CHEST: Clear. CARDIAC: Normal. ABDOMEN: Flat. Blood sugars are improving. IMPRESSION: 1. Diabetic ketoacidosis. 2. Dehydration. 3. Depression. PLAN: Progress activity and diet and probably home tomorrow. MMODL / IJN: [id number] /
--- NOTE | 2024-02-28 01:13 | HP ---
HISTORY AND PHYSICAL CHIEF COMPLAINT: DKA. HISTORY OF PRESENT ILLNESS: This is another admission for this gentleman who comes in at least once a week now with DKA because he will not take his insulin. He comes up with all kinds of excuses. Came in this time with a blood sugar of over 1000. REVIEW OF SYSTEMS: Unobtainable. Past medical history, family history, and personal and social histories were all otherwise unobtainable or unchanged. PHYSICAL EXAMINATION: VITAL SIGNS: Normal except for a pulse of 120, respirations were 38. GENERAL: He appeared to be dehydrated, and lethargic. HEAD, EARS, EYES, NOSE, MOUTH AND THROAT: Grossly normal. CHEST: Clear. CARDIAC: Normal. ABDOMEN: Soft, nontender. EXTREMITIES: Normal. NEUROLOGICAL: He is intact. IMPRESSION: He was admitted to the hospital with diagnoses of, 1. Diabetic ketoacidosis. 2. Dehydration. 3. Type 1 insulin-dependent diabetes mellitus. 4. Noncompliant patient. 5. Major depression. PLAN: Bedrest in ICU and treat for his DKA. MMODL / IJN: [id number] /
--- NOTE | 2024-02-28 03:19 | DS ---
DISCHARGE SUMMARY CHIEF COMPLAINT: DKA. HISTORY OF PRESENT ILLNESS AND PHYSICAL EXAM: Details of this man's history and physical can be found in the initial workup. LABORATORY STUDIES: While he was in the hospital, he had laboratory studies, details of which can be found in the laboratory section of his chart. COURSE IN THE HOSPITAL: After admission, he was placed on bedrest, started on intravenous fluids and DKA protocol in ICU. Sugars came down and became more awake, alert, rehydrated, and vomiting stopped. He was stable and doing well on the 4th and it was felt that he could go home. Whether or not he will take his insulin is never known. FINAL DIAGNOSES: 1. Diabetic ketoacidosis. 2. Dehydration. 3. Metabolic encephalopathy. 4. Depression. 5. Anemia. OPERATIONS: None. CONSULTATIONS: Intensive Medicine. GRACE / ALDEN: [id number] /
== END 2024-02-27 15:01 | disposition home or self-care (01) | DRG 420 ==
LOC: EC 12:09 → 2SICU 13:16 → 6NMEDSUR 02-26 02:12 → 5NMEDONC 02-26 03:15
PROVIDERS: ADMIT Family Medicine; ATTEND Family Medicine
DX: E10.10 Type 1 diabetes mellitus with ketoacidosis without coma (principal); G93.41 Metabolic encephalopathy; N17.9 Acute kidney failure, unspecified; E10.42 Type 1 diabetes mellitus with diabetic polyneuropathy; Z79.4 Long term (current) use of insulin; F32.9 Major depressive disorder, single episode, unspecified; D64.9 Anemia, unspecified; E86.0 Dehydration; T38.3X6A Underdosing of insulin and oral hypoglycemic [antidiabetic] drugs, initial encounter; E87.5 Hyperkalemia; D72.828 Other elevated white blood cell count; Z91.148 Patient's other noncompliance with medication regimen for other reason; Z87.19 Personal history of other diseases of the digestive system
CPT/HCPCS: 36415; 80048; 80051; 80053; 81003; 82009; 82565; 82803; 82947; 83605; 83690; 83735; 84100; 84520; 85025; 93005; 96361; 96374; 96375; 99291

== ENCOUNTER 2024-03-02 09:59 | Emergency (ER) | payer OTHER ==
--- NOTE | 2024-03-02 10:07 | ED ---
Recheck HPI - General Chief Complaint: Recheck/Abnormal Lab/Rx Stated Complaint: Diabetic issues Time Seen by Provider: 03/02/24 10:01 Source: patient, RN notes reviewed Mode of arrival: EMS Limitations: no limitations - History of Present Illness Initial Comments: This is a 28-year-old male who presents to the emergency department for hyperglycemia. Patient is well-known to this emergency department for recurrent visits related to DKA. Patient was last discharged from this facility on 02/26. States that his sugars had been doing well. Yesterday morning it was around 170 and yesterday around dinnertime it was 210. States that today his sugar got up into the 400s and 500s, prompting him to call EMS. States that he actually has no complaints at this time. Patient does appear much better than he typically does. He is coherent and denies any nausea, vomiting, chest pain, or shortness of breath, which he often presents with. He had some nausea earlier and was given Zofran by EMS. - Related Data Home Medications Medication Instructions Recorded Confirmed Insulin Lispro 7 units SQ AC-TID 09/17/23 03/02/24 Insulin Detemir [Levemir Flexpen] 25 units SQ DAILY@0700 01/30/24 03/02/24 Allergies Allergy/AdvReac Type Severity Reaction Status Date / Time No Known Allergies Allergy Verified 03/02/24 11:02 Review of Systems ROS Statement: Those systems with pertinent positive or pertinent negative responses have been documented in the HPI. ROS Other: All systems not noted in ROS Statement are negative. Past Medical History Past Medical History: Asthma, Diabetes Mellitus, Neurologic Disorder, Skin Disorder Additional Past Medical History / Comment(s): IDDM type I, neuropathy bilateral feet, DKA, eczema,gastritis History of Any Multi-Drug Resistant Organisms: None Reported Past Surgical History: Adenoidectomy Additional Past Surgical History / Comment(s): gastritis Past Anesthesia/Blood Transfusion Reactions: No Reported Reaction Past Psychological History: Anxiety, Depression Additional Psychological History / Comment(s): Pt has had multiple psychiatric admissions for depression/suicide attempts. Denies any current suicidal thoughts. Smoking Status: Vaper Past Alcohol Use History: None Reported Additional Past Alcohol Use History / Comment(s): Pt vapes daily. He states it has been years since he has drank any alcohol. Past Drug Use History: None Reported - Past Family History Mother Family Medical History: CVA/TIA Additional Family Medical History / Comment(s): TIA Father Family Medical History: Hyperlipidemia, Hypertension Additional Family Medical History / Comment(s): . General Exam Limitations: no limitations General appearance: alert, in no apparent distress Head exam: Present: atraumatic, normocephalic, normal inspection Eye exam: Present: normal appearance, PERRL, EOMI. Absent: scleral icterus, c onjunctival injection, periorbital swelling Respiratory exam: Present: normal lung sounds bilaterally. Absent: respiratory distress, wheezes, rales, rhonchi, stridor Cardiovascular Exam: Present: regular rate, normal rhythm, normal heart sounds. Absent: systolic murmur, diastolic murmur, rubs, gallop, clicks GI/Abdominal exam: Present: soft, normal bowel sounds. Absent: distended, tenderness, guarding, rebound, rigid Neurological exam: Present: alert, oriented X3, CN II-XII intact Psychiatric exam: Present: normal affect, normal mood Skin exam: Present: warm, dry, intact, normal color. Absent: rash Course Vital Signs 03/02/24 03/02/24 03/02/24 10:02 10:30 11:00 Temperature 97.8 F Pulse Rate 119 H Respiratory 16 Rate Blood Pressure 127/98 127/98 132/94 O2 Sat by Pulse 99 100 99 Oximetry 03/02/24 03/02/24 03/02/24 11:30 12:00 12:30 Temperature Pulse Rate Respiratory Rate Blood Pressure 117/90 118/86 124/96 O2 Sat by Pulse 98 99 98 Oximetry 03/02/24 03/02/24 12:31 13:00 Temperature Pulse Rate 87 Respiratory 16 Rate Blood Pressure 110/84 110/84 O2 Sat by Pulse 99 98 Oximetry Medical Decision Making - Medical Decision Making This is a 28-year-old male who presents to the emergency department for hyperglycemia. Was pt. sent in by a medical professional or institution? @ -No Did you speak to anyone other than the patient for history? @ -No Did you review nursing and triage notes? @ -I disagree with the vomiting, patient currently denies any nausea or v omiting Were old charts reviewed? @ -No Differential Diagnosis? @ -Differential Hyperglycemia: DKA, HHS, medication error, infection, this is not meant to be an all-inclusive list. EKG interpreted by me (3pts min.)? @ -EKG interpreted by me demonstrating the following: Sinus tachycardia. Ventricular rate 111 bpm, WI interval 140 ms, QRS duration 90 ms, QTc 388 ms. X-rays interpreted by me (1pt min.)? @ -Not obtained CT interpreted by me (1pt min.)? @ -Not obtained U/S interpreted by me (1pt. min.)? @ -Not obtained What testing was considered but not performed? (CT, X-rays, U/S, labs)? Why? @ -None What meds were considered but not given? Why? @ -None Did you discuss the management of the patient with other professionals? @ -Yes, Dr. Valenzuela, who accepts the patient for admission. Did you reconcile home meds? @ -No Was smoking cessation discussed for >3mins.? @ -35 minutes Was critical care preformed (if so, how long)? @ -No Were there social determinants of health that impacted care today? How? (Homelessness, low income, unemployed, alcoholism, drug addiction, transportation, low edu. Level, literacy, decrease access to med. care, half-way, rehab)? @ -No Was there de-escalation of care discussed even if they declined? (Discuss DNR or withdrawal of care, Hospice)? @ -No What co-morbidities impacted this encounter? (DM, HTN, Smoking, COPD, CAD, Cancer, CVA, Hep., AIDS, mental health diagnosis, sleep apnea, morbid obesity)? @ -DM Was patient admitted / discharged? @ -Admitted. Lab work demonstrates hyperglycemia with a glucose of 456. Findings consistent with DKA based on a positive acetone, anion gap of 19, bicarb of 20, and pH of 7.27. He had been given a 2 L bolus of IV fluids on arrival and then started on the DKA protocol. Patient admitted to medicine for further management of DKA. Case discussed with ED attending Dr. Peterson. Undiagnosed new problem with uncertain prognosis? @ -None Drug Therapy requiring intensive monitoring for toxicity (Heparin, Nitro, Insulin, Cardizem)? @ -Insulin Were any procedures done? @ -None Diagnosis/symptom? @ -DKA Acute, or Chronic, or Acute on Chronic? @ -Acute Uncomplicated (without systemic symptoms) or Complicated (systemic symptoms)? @ -Complicated Side effects of treatment? @ -None Exacerbation, Progression, or Severe Exacerbation] @ -Not applicable Poses a threat to life or bodily function? @ -Yes - Lab Data Result diagrams: 03/02/24 10:12 03/02/24 13:22 Lab Results 03/02/24 03/02/24 03/02/24 Range/Units 10:12 10:12 10:12 WBC 8.4 (3.8-10.6) k/uL RBC 4.47 (4.30-5.90) m/uL Hgb 12.8 L (13.0-17.5) gm/dL Hct 42.0 (39.0-53.0) % MCV 94.0 (80.0-100.0) fL MCH 28.7 (25.0-35.0) pg MCHC 30.5 L (31.0-37.0) g/dL RDW 16.4 H (11.5-15.5) % Plt Count 445 (150-450) k/uL MPV 6.6 Neutrophils % 64 % Lymphocytes % 26 % Monocytes % 4 % Eosinophils % 2 % Basophils % 1 % Neutrophils # 5.4 (1.3-7.7) k/uL Lymphocytes # 2.2 (1.0-4.8) k/uL Monocytes # 0.4 (0-1.0) k/uL Eosinophils # 0.2 (0-0.7) k/uL Basophils # 0.1 (0-0.2) k/uL Hypochromasia Moderate Anisocytosis Slight VBG pH (7.31-7.41) VBG pCO2 (37-51) mmHg VBG HCO3 (24-28) mmol/L Sodium 137 (137-145) mmol/L Potassium 5.5 H (3.5-5.1) mmol/L Chloride 98 (98-107) mmol/L Carbon Dioxide 20 L (22-30) mmol/L Anion Gap 19 mmol/L BUN 26 H (9-20) mg/dL Creatinine 0.67 (0.66-1.25) mg/dL Est GFR (CKD-EPI)AfAm >90 (>60 ml/min/1.73 sqM) Est GFR (CKD-EPI)NonAf >90 (>60 ml/min/1.73 sqM) Glucose 466 H (74-99) mg/dL POC Glucose (mg/dL) (70-110) mg/dL POC Glu Real Estate Investment Analyst ID Plasma Lactic Acid Len 1.4 (0.7-2.0) mmol/L Calcium 10.3 H (8.4-10.2) mg/dL Phosphorus 4.5 (2.5-4.5) mg/dL Magnesium 1.8 (1.6-2.3) mg/dL Total Bilirubin 0.7 (0.2-1.3) mg/dL AST 21 (17-59) U/L ALT 25 (4-49) U/L Alkaline Phosphatase 100 (38-126) U/L Total Protein 7.6 (6.3-8.2) g/dL Albumin 4.9 (3.5-5.0) g/dL Acetone, Qual Positive (Negative) 03/02/24 03/02/24 03/02/24 Range/Units 10:12 10:20 11:23 WBC (3.8-10.6) k/uL RBC (4.30-5.90) m/uL Hgb (13.0-17.5) gm/dL Hct (39.0-53.0) % MCV (80.0-100.0) fL MCH (25.0-35.0) pg MCHC (31.0-37.0) g/dL RDW (11.5-15.5) % Plt Count (150-450) k/uL MPV Neutrophils % % Lymphocytes % % Monocytes % % Eosinophils % % Basophils % % Neutrophils # (1.3-7.7) k/uL Lymphocytes # (1.0-4.8) k/uL Monocytes # (0-1.0) k/uL Eosinophils # (0-0.7) k/uL Basophils # (0-0.2) k/uL Hypochromasia Anisocytosis VBG pH 7.27 L (7.31-7.41) VBG pCO2 49 (37-51) mmHg VBG HCO3 22 L (24-28) mmol/L Sodium (137-145) mmol/L Potassium (3.5-5.1) mmol/L Chloride (98-107) mmol/L Carbon Dioxide (22-30) mmol/L Anion Gap mmol/L BUN (9-20) mg/dL Creatinine (0.66-1.25) mg/dL Est GFR (CKD-EPI)AfAm (>60 ml/min/1.73 sqM) Est GFR (CKD-EPI)NonAf (>60 ml/min/1.73 sqM) Glucose (74-99) mg/dL POC Glucose (mg/dL) 407 H 248 H (70-110) mg/dL POC Glu Real Estate Investment Analyst ID Trina Lara Plasma Lactic Acid Len (0.7-2.0) mmol/L Calcium (8.4-10.2) mg/dL Phosphorus (2.5-4.5) mg/dL Magnesium (1.6-2.3) mg/dL Total Bilirubin (0.2-1.3) mg/dL AST (17-59) U/L ALT (4-49) U/L Alkaline Phosphatase (38-126) U/L Total Protein (6.3-8.2) g/dL Albumin (3.5-5.0) g/dL Acetone, Qual (Negative) 03/02/24 03/02/24 Range/Units 12:29 13:22 WBC (3.8-10.6) k/uL RBC (4.30-5.90) m/uL Hgb (13.0-17.5) gm/dL Hct (39.0-53.0) % MCV (80.0-100.0) fL MCH (25.0-35.0) pg MCHC (31.0-37.0) g/dL RDW (11.5-15.5) % Plt Count (150-450) k/uL MPV Neutrophils % % Lymphocytes % % Monocytes % % Eosinophils % % Basophils % % Neutrophils # (1.3-7.7) k/uL Lymphocytes # (1.0-4.8) k/uL Monocytes # (0-1.0) k/uL Eosinophils # (0-0.7) k/uL Basophils # (0-0.2) k/uL Hypochromasia Anisocytosis VBG pH (7.31-7.41) VBG pCO2 (37-51) mmHg VBG HCO3 (24-28) mmol/L Sodium 133 L (137-145) mmol/L Potassium 5.0 (3.5-5.1) mmol/L Chloride 106 (98-107) mmol/L Carbon Dioxide 22 (22-30) mmol/L Anion Gap 5 mmol/L BUN 21 H (9-20) mg/dL Creatinine 0.48 L (0.66-1.25) mg/dL Est GFR (CKD-EPI)AfAm >90 (>60 ml/min/1.73 sqM) Est GFR (CKD-EPI)NonAf >90 (>60 ml/min/1.73 sqM) Glucose 185 H (74-99) mg/dL POC Glucose (mg/dL) 157 H (70-110) mg/dL POC Glu Real Estate Investment Analyst ID Sean Soria Plasma Lactic Acid Len (0.7-2.0) mmol/L Calcium (8.4-10.2) mg/dL Phosphorus 3.2 (2.5-4.5) mg/dL Magnesium (1.6-2.3) mg/dL Total Bilirubin (0.2-1.3) mg/dL AST (17-59) U/L ALT (4-49) U/L Alkaline Phosphatase (38-126) U/L Total Protein (6.3-8.2) g/dL Albumin (3.5-5.0) g/dL Acetone, Qual (Negative) Critical Care Time Critical Care Time: Yes Critical Care Time: 35 minutes Disposition Clinical Impression: DKA (diabetic ketoacidosis) Disposition: ADMITTED IP TO THIS HOSP
[2024-03-02 10:09] VITALS: TEMP 97.8
[2024-03-02] MEDS: SODIUM CHLORIDE 0.9% 2,000 ML IV STA (10:16)
[2024-03-02 10:22] LABS: Glucose,Whole Blood 407 mg/dL (70-110)
[2024-03-02 10:35] LABS: VBG PH 7.27 (7.31-7.41)
[2024-03-02 10:42] LABS: ALT 25 U/L (4-49); AST 21 U/L (17-59); African American GFR (CKD) >90 (>60 ml/min/1.73 sqM); Albumin 4.9 g/dL (3.5-5.0); Alkaline Phosphatase 100 U/L (38-126); Anion Gap 19 mmol/L; Blood Urea Nitrogen 26 mg/dL (9-20); Calcium 10.3 mg/dL (8.4-10.2); Carbon Dioxide 20 mmol/L (22-30); Chloride 98 mmol/L (98-107); Glucose 466 mg/dL (74-99); Magnesium 1.8 mg/dL (1.6-2.3); Non-African American GFR(CKD) >90 (>60 ml/min/1.73 sqM); Phosphorus 4.5 mg/dL (2.5-4.5); Potassium 5.5 mmol/L (3.5-5.1); Sodium 137 mmol/L (137-145); Total Bilirubin 0.7 mg/dL (0.2-1.3); Total Protein 7.6 g/dL (6.3-8.2)
[2024-03-02 10:50] LABS: Anisocytosis Slight; Basophils # (A) 0.1 k/uL (0-0.2); Basophils % (A) 1 %; Eosinophils # (A) 0.2 k/uL (0-0.7); Eosinophils % (A) 2 %; HGB 12.8 gm/dL (13.0-17.5); Hypochromasia Moderate; Lymphocytes # (A) 2.2 k/uL (1.0-4.8); Lymphocytes % (A) 26 %; MCH 28.7 pg (25.0-35.0); MCHC 30.5 g/dL (31.0-37.0); Mean Platelet Volume 6.6; Monocytes # (A) 0.4 k/uL (0-1.0); Monocytes % (A) 4 %; Neutrophils # (A) 5.4 k/uL (1.3-7.7); Neutrophils % (A) 64 %; Platelet Count 445 k/uL (150-450); RBC 4.47 m/uL (4.30-5.90); RDW 16.4 % (11.5-15.5); WBC 8.4 k/uL (3.8-10.6)
[2024-03-02 11:24] LABS: Glucose,Whole Blood 248 mg/dL (70-110)
[2024-03-02] MEDS: INSULIN REGULAR 100 UNIT in SODIUM CHLORIDE 0.9% 100 ML IV SCH (11:29)
[2024-03-02] MEDS: INSULIN REGULAR BOLUS (FROM DRIP BAG) IV ONE (11:30)
[2024-03-02] MEDS: SODIUM CHLORIDE 0.9% 1,000 ML IV SCH (11:33)
[2024-03-02] MEDS ORDERED: IBUPROFEN 400 MG TAB PO PRN (12:00)
[2024-03-02] MEDS ORDERED: ACETAMINOPHEN TAB 325 MG TAB PO PRN (12:00)
[2024-03-02] MEDS: D5-0.45% NACL WITH KCL 20MEQ/L 1,000 ML IV SCH (12:00)
[2024-03-02] MEDS ORDERED: ONDANSETRON 4 MG/2 ML VIAL IVP PRN (12:00)
[2024-03-02] MEDS ORDERED: NALOXONE 0.4 MG/ML 1 ML VIAL IV PRN (12:00)
[2024-03-02] MEDS ORDERED: KETOROLAC 15 MG/ML 1 ML VIAL IVP PRN (12:00)
[2024-03-02] MEDS ORDERED: MORPHINE SULFATE 4 MG/ML SYRINGE IV PRN (12:00)
[2024-03-02 12:31] LABS: Glucose,Whole Blood 157 mg/dL (70-110)
[2024-03-02 13:31] LABS: Glucose,Whole Blood 195 mg/dL (70-110)
[2024-03-02 13:59] LABS: African American GFR (CKD) >90 (>60 ml/min/1.73 sqM); Anion Gap 5 mmol/L; Blood Urea Nitrogen 21 mg/dL (9-20); Carbon Dioxide 22 mmol/L (22-30); Chloride 106 mmol/L (98-107); Glucose 185 mg/dL (74-99); Non-African American GFR(CKD) >90 (>60 ml/min/1.73 sqM); Phosphorus 3.2 mg/dL (2.5-4.5); Sodium 133 mmol/L (137-145)
[2024-03-02 14:34] LABS: Glucose,Whole Blood 137 mg/dL (70-110)
[2024-03-02 15:45] LABS: Glucose,Whole Blood 164 mg/dL (70-110)
[2024-03-02 16:12] VITALS: BP 120/70; PULSE 80; RESP 20
--- NOTE | 2024-03-03 02:05 | HP ---
HISTORY AND PHYSICAL CHIEF COMPLAINT: Uncontrolled diabetes. HISTORY OF PRESENT ILLNESS: This is another admission for this young man. He just went home the other day. When he left, he thought he would try take his insulin at different times to see if this would avoid his problem with frequent episodes of DKA. He clearly is not taking his insulin at all. He came back in with a blood sugar over 400 and nauseated and vomiting. REVIEW OF SYSTEMS: He has had no other complaints other than his usual weakness, dehydration, nausea, vomiting. Past medical history, family history, personal and social histories are all otherwise unchanged. PHYSICAL EXAMINATION: VITAL SIGNS: Pulse is 130 and the rest of the vital signs are normal. HEAD, EARS, EYES, NOSE, MOUTH AND THROAT: Normal. He is dehydrated. CHEST: Clear. CARDIAC: Normal. ABDOMEN: Soft, nontender. EXTREMITIES: Normal. NEUROLOGICAL: He is intact. IMPRESSION: 1. Diabetic ketoacidosis. 2. Uncontrolled type 1 insulin-dependent diabetic. 3. Major depression. 4. Noncompliant patient. PLAN: 1. Bedrest on regular floor. 2. IV fluids. 3. Insulin management. MMODL / IJN: [id number] /
--- NOTE | 2024-03-03 02:08 | DS ---
DISCHARGE SUMMARY HISTORY OF PRESENT ILLNESS AND PHYSICAL EXAM: Details of this man's history and physical can be found in the initial workup. LABORATORY STUDIES: While he was in the hospital, he had laboratory studies, details of which can be found in the laboratory section of his chart. COURSE IN THE HOSPITAL: After admission, he was placed on bedrest, started on intravenous fluids and was being rehydrated. He was started on insulin. It was planned that he would go to a medical floor, but he is feeling better and asked to be discharged and he was sent home. FINAL DIAGNOSES: 1. Diabetic ketoacidosis. 2. Uncontrolled type 1 insulin-dependent diabetic. 3. Major depression. 4. Dehydration. 5. Peripheral neuropathy. 6. Noncompliant patient. 7. History of gastroparesis. OPERATIONS: None. CONSULTATIONS: None. GRACE / ALDEN: [id number] /
[2024-03-03] MEDS ORDERED: PANTOPRAZOLE 40 MG/10 ML VIAL IV SCH (09:00)
== END 2024-03-02 16:10 | disposition left against medical advice (07) ==
LOC: EC 09:59 → UNDOADMIN 13:25 → 3SCARD 13:25 → UNDODISIN 16:10 → EC 16:10
CPT/HCPCS: 36415; 80051; 80053; 82009; 82565; 82803; 82947; 83605; 83735; 84100; 84520; 85025; 93005; 96360; 99291

== ENCOUNTER 2024-03-09 13:24 | Inpatient (IN) | payer OTHER ==
[2024-03-09 13:30] LABS: Glucose,Whole Blood >600 mg/dL (70-110)
--- NOTE | 2024-03-09 13:32 | ED ---
General Adult HPI - General Stated complaint: Vomiting Time Seen by Provider: 03/09/24 13:26 Source: patient, EMS, RN notes reviewed, old records reviewed Mode of arrival: EMS Limitations: no limitations - History of Present Illness Initial comments: this is a 28-year old male presents emergency department complaint of hyperglycemia. Patient is well-known type I diabetic emergency department. Patient is unsure when he last took his insulin. Patient was found by EMS to have multiple bottles of pop surrounding and including energy drinks and juice. Patient has been having emesis along with blood sugar reading high on glucometer. Patient does complain of mild diffuse abdominal pain. Patient denies reports of fever no chest pain no palpitations. - Related Data Home Medications Medication Instructions Recorded Confirmed Insulin Lispro 7 units SQ AC-TID 09/17/23 03/09/24 Insulin Detemir [Levemir Flexpen] 25 units SQ DAILY@0700 01/30/24 03/09/24 Allergies Allergy/AdvReac Type Severity Reaction Status Date / Time No Known Allergies Allergy Verified 03/09/24 14:51 Review of Systems ROS Statement: Those systems with pertinent positive or pertinent negative responses have been documented in the HPI. ROS Other: All systems not noted in ROS Statement are negative. Past Medical History Past Medical History: Asthma, Diabetes Mellitus, Neurologic Disorder, Skin Disorder Additional Past Medical History / Comment(s): IDDM type I, neuropathy bilateral feet, DKA, eczema,gastritis History of Any Multi-Drug Resistant Organisms: None Reported Past Surgical History: Adenoidectomy Additional Past Surgical History / Comment(s): gastritis Past Anesthesia/Blood Transfusion Reactions: No Reported Reaction Past Psychological History: Anxiety, Depression Additional Psychological History / Comment(s): Pt has had multiple psychiatric admissions for depression/suicide attempts. Denies any current suicidal thoughts. Smoking Status: Vaper Past Alcohol Use History: None Reported Additional Past Alcohol Use History / Comment(s): Pt vapes daily. He states it has been years since he has drank any alcohol. Past Drug Use History: None Reported - Past Family History Mother Family Medical History: CVA/TIA Additional Family Medical History / Comment(s): TIA Father Family Medical History: Hyperlipidemia, Hypertension Additional Family Medical History / Comment(s): . General Exam Limitations: no limitations General appearance: alert, in no apparent distress Head exam: Present: atraumatic, normocephalic, normal inspection Eye exam: Present: normal appearance, PERRL, EOMI. Absent: scleral icterus, conjunctival injection, periorbital swelling ENT exam: Present: mucous membranes dry. Absent: normal exam, mucous membranes moist Neck exam: Present: normal inspection, full ROM. Absent: tenderness, meningismus, lymphadenopathy Respiratory exam: Present: normal lung sounds bilaterally, other (Tachypneic). Absent: respiratory distress, wheezes, rales, rhonchi, stridor Cardiovascular Exam: Present: normal rhythm, tachycardia, normal heart sounds. Absent: systolic murmur, diastolic murmur, rubs, gallop, clicks GI/Abdominal exam: Present: soft, tenderness, normal bowel sounds. Absent: distended, guarding, rebound, rigid Neurological exam: Present: alert, oriented X3, CN II-XII intact Skin exam: Present: warm, dry, intact, normal color. Absent: rash Course Vital Signs 03/09/24 03/09/24 13:25 14:06 Temperature 97.4 F L Pulse Rate 120 H 126 H Respiratory 18 20 Rate Blood Pressure 94/62 92/57 O2 Sat by Pulse 100 97 Oximetry EKG Findings - EKG Comments: EKG Findings:: EKG performed at 14: 29 sinus tachycardia with a rate of 128 NV 168 QRS 100 QT/QTc 320/396 - EKG Results: EKG: interpreted by JOANNE Medical Decision Making - Medical Decision Making Was pt. sent in by a medical professional or institution (JAS Lucero, LAW TUTOR, urgent care, hospital, or senior care...) When possible be specific @ -No Did you speak to anyone other than the patient for history (EMS, parent, family, police, friend...)? What history was obtained from this source @ -No Did you review nursing and triage notes (agree or disagree)? Why? @ -I reviewed and agree with nursing and triage notes Were old charts reviewed (outside hosp., previous admission, EMS record, old EKG, old radiological studies, urgent care reports/EKG's, senior care records)? Report findings @ -Reviewed admission records including CBC, CMP, lactic from 1 week ago on admission Differential Diagnosis (chest pain, altered mental status, abdominal pain women, abdominal pain men, vaginal bleeding, weakness, fever, dyspnea, syncope, headache, dizziness, GI bleed, back pain, seizure, CVA, palpatations, mental health, musculoskeletal)? @ -Hyperglycemia, DKA, differential Abdominal Pain Men: Appendicitis, cholecystitis, diverticulosis, ischemic bowel, pancreatitis, hepatitis, UTI, gastroenteritis, AAA, incarcerated hernia, bowel obstruction, constipation, inflammatory bowel, hepatitis, peptic ulcer disease, splenic infarction, perforated viscus, testicular torsion, this is not meant to be an all-inclusive list EKG interpreted by me (3pts min.). @ -As above X-rays interpreted by me (1pt min.). @ -None done CT interpreted by me (1pt min.). @ -None done U/S interpreted by me (1pt. min.). @ -None done What testing was considered but not performed or refused? (CT, X-rays, U/S, labs)? Why? @ -None What meds were considered but not given or refused? Why? @ -None Did you discuss the management of the patient with other professionals (professionals i.e. , PA, LAW TUTOR, lab, RT, psych nurse, social problems specialist, quiller operator, teacher, chief investment officer, ed case manager)? Give summary @ -Dr. Valenzuela for admission, Dr. Shankar for ICU Was smoking cessation discussed for >3mins.? @ -No Was critical care preformed (if so, how long)? @ -35 minutes Were there social determinants of health that impacted care today? How? (Homelessness, low income, unemployed, alcoholism, drug addiction, transportation, low edu. Level, literacy, decrease access to med. care, group home, rehab)? @ -No Was there de-escalation of care discussed even if they declined (Discuss DNR or withdrawal of care, Hospice)? DNR status @ -No What co-morbidities impacted this encounter? (DM, HTN, Smoking, COPD, CAD, Cancer, CVA, ARF, Chemo, Hep., AIDS, mental health diagnosis, sleep apnea, morbid obesity)? @ -Diabetes Was patient admitted / discharged? Hospital course, mention meds given and route, prescriptions, significant lab abnormalities, going to OR and other pertinent info. @ -Admitted patient presents emergency department for hyperglycemia, nausea vomiting. Patient found to be in acute DKA. Patient has VBG of 6.96, 6 and 26. Patient was given 2 L bolus started on 200 mL/h and had DKA order set. Patient will repeat laboratory studies insulin drip was started. Patient will be admitted to ICU. Undiagnosed new problem with uncertain prognosis? @ -No Drug Therapy requiring intensive monitoring for toxicity (Heparin, Nitro, Insu mary jo, Cardizem)? @ -No Were any procedures done? @ -No Diagnosis/symptom? @ -DKA Acute, or Chronic, or Acute on Chronic? @ -Acute Uncomplicated (without systemic symptoms) or Complicated (systemic symptoms)? @ -Complicated Side effects of treatment? @ -No Exacerbation, Progression, or Severe Exacerbation? @ -No Poses a threat to life or bodily function? How? (Chest pain, [place], [place], pneumonia, PE, COPD, DKA, ARF, appy, cholecystitis, CVA, Diverticulitis, Homicidal, Suicidal, threat to staff... and all critical care pts) @ -yes DKA causing severe metabolic acidosis and endorgan failure - Lab Data Result diagrams: 03/09/24 13:44 03/09/24 13:44 Lab Results 03/09/24 03/09/24 03/09/24 Range/Units 13:28 13:44 13:44 WBC 14.3 H (3.8-10.6) k/uL RBC 4.29 L (4.30-5.90) m/uL Hgb 12.4 L (13.0-17.5) gm/dL Hct 43.4 (39.0-53.0) % MCV 101.2 H D (80.0-100.0) fL MCH 29.0 (25.0-35.0) pg MCHC 28.7 L (31.0-37.0) g/dL RDW 15.5 (11.5-15.5) % Plt Count 609 H (150-450) k/uL MPV 8.1 Neutrophils % 82 % Lymphocytes % 14 % Monocytes % 3 % Eosinophils % 0 % Basophils % 1 % Neutrophils # 11.7 H (1.3-7.7) k/uL Lymphocytes # 2.0 (1.0-4.8) k/uL Monocytes # 0.4 (0-1.0) k/uL Eosinophils # 0.0 (0-0.7) k/uL Basophils # 0.1 (0-0.2) k/uL Hypochromasia Marked Macrocytosis Slight VBG pH (7.31-7.41) VBG pCO2 (37-51) mmHg VBG HCO3 (24-28) mmol/L Sodium Cancelled Potassium Cancelled Chloride Cancelled Carbon Dioxide Cancelled Anion Gap Cancelled BUN Cancelled Creatinine Cancelled Est GFR (CKD-EPI) Cancelled Est GFR (CKD-EPI)AfAm Cancelled Est GFR (CKD-EPI)NonAf Cancelled Glucose Cancelled POC Glucose (mg/dL) >600 H* (70-110) mg/dL POC Glu Call Center Agent ID Shane Lara Plasma Lactic Acid Len (0.7-2.0) mmol/L Calcium Cancelled Magnesium Cancelled Total Bilirubin Cancelled AST Cancelled ALT Cancelled Alkaline Phosphatase Cancelled Total Protein Cancelled Albumin Cancelled Lipase Cancelled Acetone, Qual Positive (Negative) 03/09/24 03/09/24 03/09/24 Range/Units 13:44 13:44 13:44 WBC (3.8-10.6) k/uL RBC (4.30-5.90) m/uL Hgb (13.0-17.5) gm/dL Hct (39.0-53.0) % MCV (80.0-100.0) fL MCH (25.0-35.0) pg MCHC (31.0-37.0) g/dL RDW (11.5-15.5) % Plt Count (150-450) k/uL MPV Neutrophils % % Lymphocytes % % Monocytes % % Eosinophils % % Basophils % % Neutrophils # (1.3-7.7) k/uL Lymphocytes # (1.0-4.8) k/uL Monocytes # (0-1.0) k/uL Eosinophils # (0-0.7) k/uL Basophils # (0-0.2) k/uL Hypochromasia Macrocytosis VBG pH 6.96 L* (7.31-7.41) VBG pCO2 26 L (37-51) mmHg VBG HCO3 6 L* (24-28) mmol/L Sodium 139 Potassium 5.7 H Chloride 97 L Carbon Dioxide <5 L* Anion Gap LAW TUTOR BUN 31 H Creatinine 1.43 H Est GFR (CKD-EPI) Est GFR (CKD-EPI)AfAm 78 Est GFR (CKD-EPI)NonAf 68 Glucose 865 H* POC Glucose (mg/dL) (70-110) mg/dL POC Glu Call Center Agent ID Plasma Lactic Acid Len 4.7 H* (0.7-2.0) mmol/L Calcium 9.0 Magnesium 2.4 H Total Bilirubin 0.3 AST 23 ALT 26 Alkaline Phosphatase 116 Total Protein 6.4 Albumin 4.5 Lipase 54 Acetone, Qual (Negative) Critical Care Time Critical Care Time: Yes Total Critical Care Time: 35 Disposition Clinical Impression: DKA (diabetic ketoacidoses), SHANTEL (acute kidney injury) Disposition: ADMITTED IP TO THIS HOSP Condition: Serious Referrals: [facility] [NON-STAFF] - 03/18/24 10:45 am (New Patient appointment, please bring insurance and ID cards. You will need to complete new patient paperwork. ) Time of Disposition: 15:44
[2024-03-09] MEDS: droPERidol 5 MG/2 ML VIAL IVP ONE (13:51)
[2024-03-09] MEDS: SODIUM CHLORIDE 0.9% 2,000 ML IV STA (13:51)
[2024-03-09] MEDS: PANTOPRAZOLE 40 MG/10 ML VIAL IVP STA (13:52)
[2024-03-09] MEDS: INSULIN REGULAR 100 UNIT in SODIUM CHLORIDE 0.9% 100 ML IV SCH (13:58)
[2024-03-09 14:14] LABS: Basophils # (A) 0.1 k/uL (0-0.2); Basophils % (A) 1 %; Eosinophils % (A) 0 %; HCT 43.4 % (39.0-53.0); HGB 12.4 gm/dL (13.0-17.5); Hypochromasia Marked; Lymphocytes % (A) 14 %; MCHC 28.7 g/dL (31.0-37.0); Macrocytosis Slight; Mean Platelet Volume 8.1; Monocytes # (A) 0.4 k/uL (0-1.0); Monocytes % (A) 3 %; Neutrophils # (A) 11.7 k/uL (1.3-7.7); Neutrophils % (A) 82 %; Platelet Count 609 k/uL (150-450); RBC 4.29 m/uL (4.30-5.90); RDW 15.5 % (11.5-15.5); WBC 14.3 k/uL (3.8-10.6)
[2024-03-09 14:17] LABS: MCV 101.2 fL (80.0-100.0)
[2024-03-09 14:52] LABS: VBG PH 6.96 (7.31-7.41)
[2024-03-09 14:57] LABS: ALT 26 U/L (4-49); AST 23 U/L (17-59); African American GFR (CKD) 78 (>60 ml/min/1.73 sqM); Albumin 4.5 g/dL (3.5-5.0); Alkaline Phosphatase 116 U/L (38-126); Blood Urea Nitrogen 31 mg/dL (9-20); Chloride 97 mmol/L (98-107); Lipase 54 U/L (23-300); Magnesium 2.4 mg/dL (1.6-2.3); Non-African American GFR(CKD) 68 (>60 ml/min/1.73 sqM); Potassium 5.7 mmol/L (3.5-5.1); Sodium 139 mmol/L (137-145); Total Bilirubin 0.3 mg/dL (0.2-1.3); Total Protein 6.4 g/dL (6.3-8.2)
[2024-03-09] MEDS: SODIUM CHLORIDE 0.9% 1,000 ML IV SCH (15:22)
[2024-03-09 15:37] LABS: Carbon Dioxide <5 mmol/L (22-30); Glucose 865 mg/dL (74-99)
[2024-03-09] MEDS: SODIUM CHLORIDE 0.9% 1,000 ML IV ONE (15:56)
[2024-03-09 16:14] LABS: Glucose,Whole Blood 542 mg/dL (70-110)
[2024-03-09 17:13] LABS: Glucose,Whole Blood 409 mg/dL (70-110)
[2024-03-09 17:17] LABS: African American GFR (CKD) >90 (>60 ml/min/1.73 sqM); Blood Urea Nitrogen 30 mg/dL (9-20); Chloride 110 mmol/L (98-107); Non-African American GFR(CKD) 80 (>60 ml/min/1.73 sqM); Potassium 5.1 mmol/L (3.5-5.1); Sodium 143 mmol/L (137-145)
[2024-03-09 17:24] LABS: Carbon Dioxide <5 mmol/L (22-30); Glucose 533 mg/dL (74-99)
[2024-03-09 18:15] LABS: Glucose,Whole Blood 292 mg/dL (70-110)
[2024-03-09 18:20] LABS: Appearance,Urine Clear (Clear); Bilirubin,Urine Negative (Negative); Blood,Urine Negative (Negative); Color,Urine Colorless; Glucose,Urine (UA) 4+ (Negative); Leukocyte Esterase,Urine Negative (Negative); Nitrite,Urine Negative (Negative); Protein,Urine Negative (Negative); Specific Gravity,Urine 1.019 (1.001-1.035); Urobilinogen,Urine <2.0 mg/dL (<2.0)
--- NOTE | 2024-03-09 18:28 | P.CNPUL ---
History of Present Illness Consult date: 03/09/24 Chief complaint: DKA History of present illness: 28-year-old male patient, type I diabetic, coming in with DKA due to drug noncompliance. He has severe anion gap metabolic acidosis. Serum bicarb was less than 5. The blood gas showed a pH of 6.9 with a pCO2 of 26. His blood sugar was in the order of 573. BUN was at 30 with a creatinine of 1.43 and initial potassium was at 5.7. Lactic acid level was 4.7 at time of admission. Normal LFTs. Positive acetone. White cell count of 14.3. EKG showing sinus tachycardia. Mentation is adequate. The patient does not seem to be altered. He has diminished responses. He is able to communicate. Not much cooperative. He is supposed to be on Levemir insulin 25 units daily along with regular insulin 7 units with meals plus a sliding scale coverage. Review of Systems ROS unobtainable: due to mental status Past Medical History Past Medical History: Asthma, Diabetes Mellitus, Neurologic Disorder, Skin Disorder Additional Past Medical History / Comment(s): IDDM type I, neuropathy bilateral feet, DKA, eczema,gastritis History of Any Multi-Drug Resistant Organisms: None Reported Past Surgical History: Adenoidectomy Additional Past Surgical History / Comment(s): gastritis Past Anesthesia/Blood Transfusion Reactions: No Reported Reaction Past Psychological History: Anxiety, Depression Additional Psychological History / Comment(s): Pt has had multiple psychiatric admissions for depression/suicide attempts. Denies any current suicidal thoughts. Smoking Status: Vaper Past Alcohol Use History: None Reported Additional Past Alcohol Use History / Comment(s): Pt vapes daily. He states it has been years since he has drank any alcohol. Past Drug Use History: None Reported - Past Family History Mother Family Medical History: CVA/TIA Additional Family Medical History / Comment(s): TIA Father Family Medical History: Hyperlipidemia, Hypertension Additional Family Medical History / Comment(s): . Medications and Allergies Home Medications Medication Instructions Recorded Confirmed Type Insulin Lispro 7 units SQ AC-TID 09/17/23 03/09/24 History Insulin Detemir [Levemir Flexpen] 25 units SQ DAILY@0700 01/30/24 03/09/24 History Allergies Allergy/AdvReac Type Severity Reaction Status Date / Time No Known Allergies Allergy Verified 03/09/24 14:51 Physical Exam Vitals: Vital Signs Temp Pulse Resp BP Pulse Ox 03/09/24 18:12 117 H 24 111/72 99 03/09/24 17:38 123 H 18 95/62 97 03/09/24 15:49 130 H 18 90/62 98 03/09/24 14:06 126 H 20 92/57 97 03/09/24 13:25 97.4 F L 120 H 18 94/62 100 Intake and Output 03/09/24 03/09/24 03/09/24 06:59 14:59 22:59 Other: Weight 58.967 kg GENERAL EXAM: Alert, thin, pleasant 28-year-old male, on room air, comfortable in no apparent distress. HEAD: Normocephalic. EYES: Normal reaction of pupils, equal size. NOSE: Clear with pink turbinates. THROAT: No erythema or exudates. NECK: No masses, no JVD. CHEST: No chest wall deformity. LUNGS: Equal air entry with no crackles, wheeze, rhonchi or dullness. CVS: S1 and S2 normal with no audible murmur, regular rhythm. ABDOMEN: No hepatosplenomegaly, normal bowel sounds, no guarding or rigidity. SPINE: No scoliosis or deformity SKIN: No rashes CENTRAL NERVOUS SYSTEM: No focal deficits, tone is normal in all 4 extremities. EXTREMITIES: There is no peripheral edema. No clubbing, no cyanosis. Peripheral pulses are intact. Results - Laboratory Findings CBC and BMP: 03/09/24 13:44 03/09/24 16:31 ABG WBC 14.3 k/uL (3.8-10.6) H 03/09/24 13:44 RBC 4.29 m/uL (4.30-5.90) L 03/09/24 13:44 Hgb 12.4 gm/dL (13.0-17.5) L 03/09/24 13:44 Hct 43.4 % (39.0-53.0) 03/09/24 13:44 MCV 101.2 fL (80.0-100.0) H D 03/09/24 13:44 MCH 29.0 pg (25.0-35.0) 03/09/24 13:44 MCHC 28.7 g/dL (31.0-37.0) L 03/09/24 13:44 RDW 15.5 % (11.5-15.5) 03/09/24 13:44 Plt Count 609 k/uL (150-450) H 03/09/24 13:44 MPV 8.1 03/09/24 13:44 Neutrophils % 82 % 03/09/24 13:44 Lymphocytes % 14 % 03/09/24 13:44 Monocytes % 3 % 03/09/24 13:44 Eosinophils % 0 % 03/09/24 13:44 Basophils % 1 % 03/09/24 13:44 Neutrophils # 11.7 k/uL (1.3-7.7) H 03/09/24 13:44 Lymphocytes # 2.0 k/uL (1.0-4.8) 03/09/24 13:44 Monocytes # 0.4 k/uL (0-1.0) 03/09/24 13:44 Eosinophils # 0.0 k/uL (0-0.7) 03/09/24 13:44 Basophils # 0.1 k/uL (0-0.2) 03/09/24 13:44 Hypochromasia Marked 03/09/24 13:44 Macrocytosis Slight 03/09/24 13:44 VBG pH 6.96 (7.31-7.41) L* 03/09/24 13:44 VBG pCO2 26 mmHg (37-51) L 03/09/24 13:44 VBG HCO3 6 mmol/L (24-28) L* 03/09/24 13:44 Sodium 143 mmol/L (137-145) 03/09/24 16:31 Potassium 5.1 mmol/L (3.5-5.1) 03/09/24 16:31 Chloride 110 mmol/L (98-107) H 03/09/24 16:31 Carbon Dioxide <5 mmol/L (22-30) L* 03/09/24 16:31 Anion Gap mmol/L 03/09/24 16:31 BUN 30 mg/dL (9-20) H 03/09/24 16:31 Creatinine 1.25 mg/dL (0.66-1.25) 03/09/24 16:31 Est GFR (CKD-EPI) Cancelled 03/09/24 13:44 Est GFR (CKD-EPI)AfAm >90 (>60 ml/min/1.73 sqM) 03/09/24 16:31 Est GFR (CKD-EPI)NonAf 80 (>60 ml/min/1.73 sqM) 03/09/24 16:31 Glucose 533 mg/dL (74-99) H* 03/09/24 16:31 POC Glucose (mg/dL) 292 mg/dL (70-110) H 03/09/24 18:13 POC Glu Relay Dispatcher ID Rock Burris 03/09/24 18:13 Lactic Ac Sepsis Rflx Y 03/09/24 14:17 Plasma Lactic Acid Len 2.5 mmol/L (0.7-2.0) H* 03/09/24 16:31 Calcium 9.0 mg/dL (8.4-10.2) 03/09/24 13:44 Calcium Cancelled 03/09/24 13:44 Phosphorus 7.0 mg/dL (2.5-4.5) H 03/09/24 16:31 Magnesium 2.4 mg/dL (1.6-2.3) H 03/09/24 13:44 Magnesium Cancelled 03/09/24 13:44 Total Bilirubin 0.3 mg/dL (0.2-1.3) 03/09/24 13:44 Total Bilirubin Cancelled 03/09/24 13:44 AST 23 U/L (17-59) 03/09/24 13:44 AST Cancelled 03/09/24 13:44 ALT 26 U/L (4-49) 03/09/24 13:44 ALT Cancelled 03/09/24 13:44 Alkaline Phosphatase 116 U/L (38-126) 03/09/24 13:44 Alkaline Phosphatase Cancelled 03/09/24 13:44 Total Protein 6.4 g/dL (6.3-8.2) 03/09/24 13:44 Total Protein Cancelled 03/09/24 13:44 Albumin 4.5 g/dL (3.5-5.0) 03/09/24 13:44 Albumin Cancelled 03/09/24 13:44 Lipase 54 U/L (23-300) 03/09/24 13:44 Lipase Cancelled 03/09/24 13:44 Acetone, Qual Positive (Negative) 10/15/24 13:44 Abnormal lab findings: Abnormal Labs 03/09/24 03/09/24 03/09/24 13:28 13:44 13:44 WBC 14.3 H RBC 4.29 L Hgb 12.4 L MCV 101.2 H D MCHC 28.7 L Plt Count 609 H Neutrophils # 11.7 H VBG pH VBG pCO2 VBG HCO3 Potassium Chloride Carbon Dioxide BUN Creatinine Glucose POC Glucose (mg/dL) >600 H* Plasma Lactic Acid Len 4.7 H* Phosphorus Magnesium 03/09/24 03/09/24 03/09/24 13:44 13:44 16:12 WBC RBC Hgb MCV MCHC Plt Count Neutrophils # VBG pH 6.96 L* VBG pCO2 26 L VBG HCO3 6 L* Potassium 5.7 H Chloride 97 L Carbon Dioxide <5 L* BUN 31 H Creatinine 1.43 H Glucose 865 H* POC Glucose (mg/dL) 542 H* Plasma Lactic Acid Len Phosphorus Magnesium 2.4 H 03/09/24 03/09/24 03/09/24 16:31 16:31 16:31 WBC RBC Hgb MCV MCHC Plt Count Neutrophils # VBG pH VBG pCO2 VBG HCO3 Potassium Chloride 110 H Carbon Dioxide <5 L* BUN 30 H Creatinine Glucose 533 H* POC Glucose (mg/dL) Plasma Lactic Acid Len 2.5 H* Phosphorus 7.0 H Magnesium 03/09/24 03/09/24 17:13 18:13 WBC RBC Hgb MCV MCHC Plt Count Neutrophils # VBG pH VBG pCO2 VBG HCO3 Potassium Chloride Carbon Dioxide BUN Creatinine Glucose POC Glucose (mg/dL) 409 H 292 H Plasma Lactic Acid Len Phosphorus Magnesium Assessment and Plan Plan: Acute diabetic ketoacidosis, secondary to medication noncompliance. Patient has had numerous hospital admissions for DKA. Severe anion gap metabolic acidosis, secondary to above and lactic acidosis Hyperkalemia Severe dehydration Acute kidney injury, secondary to above, resolved Acute leukocytosis, likely reactive to DKA Type 1 diabetes mellitus, with poor medication compliance Diabetic neuropathy History of gastritis History of major depression Plan: Patient will be admitted to the ICU. DKA protocol. Insulin drip which is currently running at 6 units an hour and the patient is also on D5 half-nor 0.9 at rate of 200 cc an hour to be transition to D5 half-normal per protocol once the blood sugars under 250. Monitor electrolytes. Blood sugars every 1 hour. Electrolytes every 4 hours. Strongly recommend probably guardian and/or placement to rehab for therapy on this gentleman.
[2024-03-09 18:34] LABS: Ketones,Urine 4+ (Negative)
[2024-03-09] MEDS: D5-0.45% NACL WITH KCL 20MEQ/L 1,000 ML IV SCH (18:35)
[2024-03-09 19:17] LABS: Glucose,Whole Blood 238 mg/dL (70-110)
[2024-03-09 19:55] LABS: African American GFR (CKD) >90 (>60 ml/min/1.73 sqM); Anion Gap 17 mmol/L; Blood Urea Nitrogen 27 mg/dL (9-20); Carbon Dioxide 12 mmol/L (22-30); Chloride 117 mmol/L (98-107); Glucose 260 mg/dL (74-99); Non-African American GFR(CKD) >90 (>60 ml/min/1.73 sqM); Potassium 4.7 mmol/L (3.5-5.1); Sodium 146 mmol/L (137-145)
[2024-03-09 20:00] LABS: Glucose,Whole Blood 224 mg/dL (70-110)
[2024-03-09 21:03] LABS: Glucose,Whole Blood 199 mg/dL (70-110)
--- NOTE | 2024-03-09 21:59 | HP ---
HISTORY AND PHYSICAL CHIEF COMPLAINT: DKA. HISTORY OF PRESENT ILLNESS: This is another admission for this young man who is in and out of the hospital at least once a week now. He goes home, does not take his insulin and comes in DKA. REVIEW OF SYSTEMS: Unobtainable. Past medical history, family history, personal and social histories are unchanged. PHYSICAL EXAMINATION: GENERAL: He is in sinus tachycardia. HEAD, EARS, EYES, NOSE, MOUTH, AND THROAT: Normal. He is lethargic. CHEST: Clear. CARDIAC: Normal. ABDOMEN: Soft, nontender. EXTREMITIES: Normal. IMPRESSION: 1. Diabetic ketoacidosis. 2. Dehydration. 3. Uncontrolled type 1 insulin-dependent diabetes mellitus. 4. Noncompliant patient. 5. Depression. PLAN: ICU management until his sugars are down and his gap is closed. MMODL / IJN: [id number] /
[2024-03-09 22:02] LABS: Glucose,Whole Blood 177 mg/dL (70-110)
[2024-03-10 02:29] LABS: African American GFR (CKD) >90 (>60 ml/min/1.73 sqM); Anion Gap 10 mmol/L; Blood Urea Nitrogen 24 mg/dL (9-20); Carbon Dioxide 19 mmol/L (22-30); Chloride 115 mmol/L (98-107); Glucose 140 mg/dL (74-99); Non-African American GFR(CKD) >90 (>60 ml/min/1.73 sqM); Potassium 4.4 mmol/L (3.5-5.1); Sodium 144 mmol/L (137-145)
[2024-03-10] MEDS: INSULIN NPH 100 UNIT/ML 10 ML VIAL SQ ONE (04:46)
[2024-03-10 06:22] LABS: African American GFR (CKD) >90 (>60 ml/min/1.73 sqM); Anion Gap 19 mmol/L; Blood Urea Nitrogen 20 mg/dL (9-20); Calcium 8.9 mg/dL (8.4-10.2); Carbon Dioxide 12 mmol/L (22-30); Chloride 109 mmol/L (98-107); Glucose 255 mg/dL (74-99); Non-African American GFR(CKD) >90 (>60 ml/min/1.73 sqM); Potassium 4.5 mmol/L (3.5-5.1); Sodium 140 mmol/L (137-145)
[2024-03-10] MEDS: INSULIN DETEMIR (LEVEMIR) 100 UNIT/ML SYR SQ SCH (06:23)
[2024-03-10] MEDS: INSULIN ASPART (NovoLOG) 100 UNIT/ML VIAL SQ SCH ×2 (06:24→06:28)
[2024-03-10] MEDS: PANTOPRAZOLE 40 MG/10 ML VIAL IVP SCH (09:26)
[2024-03-10 10:38] VITALS: BMI 19.6
--- NOTE | 2024-03-10 15:57 | P.PN ---
Subjective Progress Note Date: 03/10/24 28-year-old male patient, type I diabetic, coming in with DKA due to drug noncompliance. He has severe anion gap metabolic acidosis. Serum bicarb was less than 5. The blood gas showed a pH of 6.9 with a pCO2 of 26. His blood sugar was in the order of 573. BUN was at 30 with a creatinine of 1.43 and initial potassium was at 5.7. Lactic acid level was 4.7 at time of admission. Normal LFTs. Positive acetone. White cell count of 14.3. EKG showing sinus tachycardia. Mentation is adequate. The patient does not seem to be altered. He has diminished responses. He is able to communicate. Not much cooperative. He is supposed to be on Levemir insulin 25 units daily along with regular insulin 7 units with meals plus a sliding scale coverage. \On 03/10/2024, the patient is being seen for a follow-up. The patient was admitted to the intensive care for DKA and the patient has recovered. The patient has been adequately resuscitated with IV fluids. The patient is currently off insulin drip and the patient is on Levemir insulin 25 units daily and 7 units of NovoLog with meals and insulin scale coverage. Awake and alert and communicating. Most recent serum bicarbonate 19 with a gap of 10. Sodium levels at 144. The patient remains hemodynamically stable. He is currently on room air oxygen. Heart rate is improved and the patient's heart rate is down to 100, sinus. Afebrile. Hemodynamically stable. No focal neurological deficits. Objective - Vital Signs Vital signs: Vital Signs Temp 97.9 F 03/10/24 07:44 Pulse 105 H 03/10/24 07:44 Resp 18 03/10/24 07:44 BP 114/72 03/10/24 07:44 Pulse Ox 98 03/10/24 07:00 FiO2 Intake & Output 03/09/24 03/10/24 03/10/24 18:59 06:59 18:59 Intake Total 150 1265.071 Output Total 0 450 0 Balance 150 815.071 0 Weight 58.967 kg 70.5 kg Intake: IV 150 1200 D5-0.45% NaCl with KCl 150 1200 20Meq/l 1,000 ml @ 150 mls/hr IV .[id number] [facility] Rx# :[id number] Intake, IV Titration 65.071 Amount Insulin Regular 100 unit 65.071 In Sodium Chloride 0.9% 100 ml @ 0.1 UNITS/KG/HR 5.956 mls/hr IV .[id number] [facility] Rx#:[id number] Output: Urine 0 450 0 Other: Voiding Method Urinal # Voids 1 # Bowel Movements 1 - Exam GENERAL EXAM: Alert, thin, pleasant 28-year-old male, on room air, comfortable in no apparent distress. HEAD: Normocephalic. EYES: Normal reaction of pupils, equal size. NOSE: Clear with pink turbinates. THROAT: No erythema or exudates. NECK: No masses, no JVD. CHEST: No chest wall deformity. LUNGS: Equal air entry with no crackles, wheeze, rhonchi or dullness. CVS: S1 and S2 normal with no audible murmur, regular rhythm. ABDOMEN: No hepatosplenomegaly, normal bowel sounds, no guarding or rigidity. SPINE: No scoliosis or deformity SKIN: No rashes CENTRAL NERVOUS SYSTEM: No focal deficits, tone is normal in all 4 extremities. EXTREMITIES: There is no peripheral edema. No clubbing, no cyanosis. Peripheral pulses are intact. - Labs CBC & Chem 7: 03/09/24 13:44 03/10/24 05:56 Labs: Abnormal Lab Results - Last 24 Hours (Table) 03/09/24 03/09/24 03/09/24 Range/Units 13:28 13:44 13:44 WBC 14.3 H (3.8-10.6) k/uL RBC 4.29 L (4.30-5.90) m/uL Hgb 12.4 L (13.0-17.5) gm/dL MCV 101.2 H D (80.0-100.0) fL MCHC 28.7 L (31.0-37.0) g/dL Plt Count 609 H (150-450) k/uL Neutrophils # 11.7 H (1.3-7.7) k/uL VBG pH (7.31-7.41) VBG pCO2 (37-51) mmHg VBG HCO3 (24-28) mmol/L Sodium (137-145) mmol/L Potassium (3.5-5.1) mmol/L Chloride (98-107) mmol/L Carbon Dioxide (22-30) mmol/L BUN (9-20) mg/dL Creatinine (0.66-1.25) mg/dL Glucose (74-99) mg/dL POC Glucose (mg/dL) >600 H* (70-110) mg/dL Plasma Lactic Acid Len (0.7-2.0) mmol/L Phosphorus (2.5-4.5) mg/dL Magnesium (1.6-2.3) mg/dL Urine Glucose (UA) 4+ H (Negative) Urine Ketones 4+ H (Negative) 03/09/24 03/09/24 03/09/24 Range/Units 13:44 13:44 13:44 WBC (3.8-10.6) k/uL RBC (4.30-5.90) m/uL Hgb (13.0-17.5) gm/dL MCV (80.0-100.0) fL MCHC (31.0-37.0) g/dL Plt Count (150-450) k/uL Neutrophils # (1.3-7.7) k/uL VBG pH 6.96 L* (7.31-7.41) VBG pCO2 26 L (37-51) mmHg VBG HCO3 6 L* (24-28) mmol/L Sodium (137-145) mmol/L Potassium 5.7 H (3.5-5.1) mmol/L Chloride 97 L (98-107) mmol/L Carbon Dioxide <5 L* (22-30) mmol/L BUN 31 H (9-20) mg/dL Creatinine 1.43 H (0.66-1.25) mg/dL Glucose 865 H* (74-99) mg/dL POC Glucose (mg/dL) (70-110) mg/dL Plasma Lactic Acid Len 4.7 H* (0.7-2.0) mmol/L Phosphorus (2.5-4.5) mg/dL Magnesium 2.4 H (1.6-2.3) mg/dL Urine Glucose (UA) (Negative) Urine Ketones (Negative) 03/09/24 03/09/24 03/09/24 Range/Units 16:12 16:31 16:31 WBC (3.8-10.6) k/uL RBC (4.30-5.90) m/uL Hgb (13.0-17.5) gm/dL MCV (80.0-100.0) fL MCHC (31.0-37.0) g/dL Plt Count (150-450) k/uL Neutrophils # (1.3-7.7) k/uL VBG pH (7.31-7.41) VBG pCO2 (37-51) mmHg VBG HCO3 (24-28) mmol/L Sodium (137-145) mmol/L Potassium (3.5-5.1) mmol/L Chloride 110 H (98-107) mmol/L Carbon Dioxide <5 L* (22-30) mmol/L BUN 30 H (9-20) mg/dL Creatinine (0.66-1.25) mg/dL Glucose 533 H* (74-99) mg/dL POC Glucose (mg/dL) 542 H* (70-110) mg/dL Plasma Lactic Acid Len (0.7-2.0) mmol/L Phosphorus 7.0 H (2.5-4.5) mg/dL Magnesium (1.6-2.3) mg/dL Urine Glucose (UA) (Negative) Urine Ketones (Negative) 03/09/24 03/09/24 03/09/24 Range/Units 16:31 17:13 18:13 WBC (3.8-10.6) k/uL RBC (4.30-5.90) m/uL Hgb (13.0-17.5) gm/dL MCV (80.0-100.0) fL MCHC (31.0-37.0) g/dL Plt Count (150-450) k/uL Neutrophils # (1.3-7.7) k/uL VBG pH (7.31-7.41) VBG pCO2 (37-51) mmHg VBG HCO3 (24-28) mmol/L Sodium (137-145) mmol/L Potassium (3.5-5.1) mmol/L Chloride (98-107) mmol/L Carbon Dioxide (22-30) mmol/L BUN (9-20) mg/dL Creatinine (0.66-1.25) mg/dL Glucose (74-99) mg/dL POC Glucose (mg/dL) 409 H 292 H (70-110) mg/dL Plasma Lactic Acid Len 2.5 H* (0.7-2.0) mmol/L Phosphorus (2.5-4.5) mg/dL Magnesium (1.6-2.3) mg/dL Urine Glucose (UA) (Negative) Urine Ketones (Negative) 03/09/24 03/09/24 03/09/24 Range/Units 19:16 19:26 19:59 WBC (3.8-10.6) k/uL RBC (4.30-5.90) m/uL Hgb (13.0-17.5) gm/dL MCV (80.0-100.0) fL MCHC (31.0-37.0) g/dL Plt Count (150-450) k/uL Neutrophils # (1.3-7.7) k/uL VBG pH (7.31-7.41) VBG pCO2 (37-51) mmHg VBG HCO3 (24-28) mmol/L Sodium 146 H (137-145) mmol/L Potassium (3.5-5.1) mmol/L Chloride 117 H (98-107) mmol/L Carbon Dioxide 12 L (22-30) mmol/L BUN 27 H (9-20) mg/dL Creatinine (0.66-1.25) mg/dL Glucose 260 H (74-99) mg/dL POC Glucose (mg/dL) 238 H 224 H (70-110) mg/dL Plasma Lactic Acid Len (0.7-2.0) mmol/L Phosphorus (2.5-4.5) mg/dL Magnesium (1.6-2.3) mg/dL Urine Glucose (UA) (Negative) Urine Ketones (Negative) 03/09/24 03/09/24 03/10/24 Range/Units 21:02 22:01 01:52 WBC (3.8-10.6) k/uL RBC (4.30-5.90) m/uL Hgb (13.0-17.5) gm/dL MCV (80.0-100.0) fL MCHC (31.0-37.0) g/dL Plt Count (150-450) k/uL Neutrophils # (1.3-7.7) k/uL VBG pH (7.31-7.41) VBG pCO2 (37-51) mmHg VBG HCO3 (24-28) mmol/L Sodium (137-145) mmol/L Potassium (3.5-5.1) mmol/L Chloride 115 H (98-107) mmol/L Carbon Dioxide 19 L (22-30) mmol/L BUN 24 H (9-20) mg/dL Creatinine (0.66-1.25) mg/dL Glucose 140 H (74-99) mg/dL POC Glucose (mg/dL) 199 H 177 H (70-110) mg/dL Plasma Lactic Acid Len (0.7-2.0) mmol/L Phosphorus (2.5-4.5) mg/dL Magnesium (1.6-2.3) mg/dL Urine Glucose (UA) (Negative) Urine Ketones (Negative) 03/10/24 Range/Units 05:56 WBC (3.8-10.6) k/uL RBC (4.30-5.90) m/uL Hgb (13.0-17.5) gm/dL MCV (80.0-100.0) fL MCHC (31.0-37.0) g/dL Plt Count (150-450) k/uL Neutrophils # (1.3-7.7) k/uL VBG pH (7.31-7.41) VBG pCO2 (37-51) mmHg VBG HCO3 (24-28) mmol/L Sodium (137-145) mmol/L Potassium (3.5-5.1) mmol/L Chloride 109 H (98-107) mmol/L Carbon Dioxide 12 L (22-30) mmol/L BUN (9-20) mg/dL Creatinine (0.66-1.25) mg/dL Glucose 255 H (74-99) mg/dL POC Glucose (mg/dL) (70-110) mg/dL Plasma Lactic Acid Len (0.7-2.0) mmol/L Phosphorus (2.5-4.5) mg/dL Magnesium (1.6-2.3) mg/dL Urine Glucose (UA) (Negative) Urine Ketones (Negative) Assessment and Plan Plan: Acute diabetic ketoacidosis, secondary to medication noncompliance. Patient has had numerous hospital admissions for DKA. The patient is recovered and the patient is currently on Levemir insulin 25 units daily in addition to NovoLog 7 units with meals and Scale coverage Severe anion gap metabolic acidosis, secondary to above and lactic acidosis, improved and the serum bicarb is up to 19 and the gap is closed Hyperkalemia, improved Severe dehydration, improved Acute kidney injury, secondary to above, resolved Acute leukocytosis, likely reactive to DKA Type 1 diabetes mellitus, with poor medication compliance Diabetic neuropathy History of gastritis History of major depression Plan: Patient has been transition to long-acting insulin and the patient is on Levemir 25 units daily along with NovoLog 7 units with meals and SSI coverage Monitor blood sugars Monitor electrolytes Advance diet Monitor white cell count Currently on room air oxygen Will check another set of electrolytes Can be transferred to the medical floor
[2024-03-10 19:49] LABS: Glucose,Whole Blood 204 mg/dL (70-110)
--- NOTE | 2024-03-11 04:25 | PN ---
PROGRESS NOTE DATE OF SERVICE: 03/10/2024 CHIEF COMPLAINT: DKA. HISTORY OF PRESENT ILLNESS: This gentleman is still lethargic and nauseated. PHYSICAL EXAMINATION: VITAL SIGNS: Normal. Sugars down below 200. CHEST: Clear. CARDIAC: Normal. ABDOMEN: Soft and flat. IMPRESSION: 1. Diabetic ketoacidosis. 2. Dehydration. 3. Intractable nausea and vomiting. 4. Depression. PLAN: Continue current management until he stabilizes once again and can be discharged. MMODL / IJN: [id number] /
[2024-03-11 06:19] LABS: Glucose,Whole Blood 299 mg/dL (70-110)
[2024-03-11] MEDS ORDERED: ONDANSETRON 4 MG/2 ML VIAL IVP PRN (07:18)
[2024-03-11 11:41] LABS: Glucose,Whole Blood 115 mg/dL (70-110)
[2024-03-11 16:33] LABS: Glucose,Whole Blood 149 mg/dL (70-110)
--- NOTE | 2024-03-11 19:35 | P.PN ---
Subjective Progress Note Date: 03/11/24 28-year-old male patient, type I diabetic, coming in with DKA due to drug noncompliance. He has severe anion gap metabolic acidosis. Serum bicarb was less than 5. The blood gas showed a pH of 6.9 with a pCO2 of 26. His blood sugar was in the order of 573. BUN was at 30 with a creatinine of 1.43 and initial potassium was at 5.7. Lactic acid level was 4.7 at time of admission. Normal LFTs. Positive acetone. White cell count of 14.3. EKG showing sinus tachycardia. Mentation is adequate. The patient does not seem to be altered. He has diminished responses. He is able to communicate. Not much cooperative. He is supposed to be on Levemir insulin 25 units daily along with regular insulin 7 units with meals plus a sliding scale coverage. \On 03/10/2024, the patient is being seen for a follow-up. The patient was admitted to the intensive care for DKA and the patient has recovered. The patient has been adequately resuscitated with IV fluids. The patient is currently off insulin drip and the patient is on Levemir insulin 25 units daily and 7 units of NovoLog with meals and insulin scale coverage. Awake and alert and communicating. Most recent serum bicarbonate 19 with a gap of 10. Sodium levels at 144. The patient remains hemodynamically stable. He is currently on room air oxygen. Heart rate is improved and the patient's heart rate is down to 100, sinus. Afebrile. Hemodynamically stable. No focal neurological deficits. On 03/11/2024, the patient on medical floor. Doing well. No specific complaints. Currently on Levemir insulin 25 units daily and NovoLog 7 units with meals. Will need another set of electrolytes and the patient had a anion gap metabolic acidosis based on the most likely obtained on 03/10/2024. Blood sugars are under adequate control for now. Objective - Vital Signs Vital signs: Vital Signs Temp 97.5 F L 03/11/24 14:00 Pulse 97 03/11/24 14:00 Resp 18 03/11/24 14:00 BP 124/88 03/11/24 14:00 Pulse Ox 100 03/11/24 14:00 FiO2 Intake & Output 03/11/24 03/11/24 03/12/24 06:59 18:59 06:59 Other: Voiding Method Toilet # Voids 3 2 # Bowel Movements 1 - Exam GENERAL EXAM: Alert, thin, pleasant 28-year-old male, on room air, comfortable in no apparent distress. HEAD: Normocephalic. EYES: Normal reaction of pupils, equal size. NOSE: Clear with pink turbinates. THROAT: No erythema or exudates. NECK: No masses, no JVD. CHEST: No chest wall deformity. LUNGS: Equal air entry with no crackles, wheeze, rhonchi or dullness. CVS: S1 and S2 normal with no audible murmur, regular rhythm. ABDOMEN: No hepatosplenomegaly, normal bowel sounds, no guarding or rigidity. SPINE: No scoliosis or deformity SKIN: No rashes CENTRAL NERVOUS SYSTEM: No focal deficits, tone is normal in all 4 extremities. EXTREMITIES: There is no peripheral edema. No clubbing, no cyanosis. Peripheral pulses are intact. - Labs CBC & Chem 7: 03/09/24 13:44 03/10/24 05:56 Labs: Abnormal Lab Results - Last 24 Hours (Table) 03/10/24 03/11/24 03/11/24 Range/Units 19:47 06:18 11:39 POC Glucose (mg/dL) 204 H 299 H 115 H (70-110) mg/dL 03/11/24 Range/Units 16:31 POC Glucose (mg/dL) 149 H (70-110) mg/dL Assessment and Plan Plan: Acute diabetic ketoacidosis, secondary to medication noncompliance. Patient has had numerous hospital admissions for DKA. The patient is recovered and the patient is currently on Levemir insulin 25 units daily in addition to NovoLog 7 units with meals Severe anion gap metabolic acidosis, most recent electrolytes showing a persistent gap. Patient able to ambulate. Will control for now. Hyperkalemia, improved Severe dehydration, improved Acute kidney injury, secondary to above, resolved Acute leukocytosis, likely reactive to DKA Type 1 diabetes mellitus, with poor medication compliance Diabetic neuropathy History of gastritis History of major depression Plan: Patient has been transition to long-acting insulin and the patient is on Levemir 25 units daily along with NovoLog 7 units with meals and SSI coverage Monitor blood sugars Monitor electrolytes, most recent electrolytes on 03/10/2024 showed a gap analysis the electrolytes seems to be repeated and he Is to be recalculated. Advance diet Monitor white cell count Currently on room air oxygen
[2024-03-11 20:10] LABS: Glucose,Whole Blood 115 mg/dL (70-110)
[2024-03-11 21:18] LABS: African American GFR (CKD) >90 (>60 ml/min/1.73 sqM); Anion Gap 8 mmol/L; Blood Urea Nitrogen 10 mg/dL (9-20); Carbon Dioxide 26 mmol/L (22-30); Chloride 101 mmol/L (98-107); Glucose 116 mg/dL (74-99); Non-African American GFR(CKD) >90 (>60 ml/min/1.73 sqM); Potassium 4.2 mmol/L (3.5-5.1); Sodium 135 mmol/L (137-145)
--- NOTE | 2024-03-12 01:11 | PN ---
PROGRESS NOTE DATE OF SERVICE: 03/11/2024 CHIEF COMPLAINT: DKA. HISTORY OF PRESENT ILLNESS: This gentleman is still nauseated and vomiting. He has had no fever or chills. Sugars are coming down. PHYSICAL EXAMINATION: CHEST: Clear. CARDIAC: Normal. ABDOMEN: Flat, soft, nontender. IMPRESSION: 1. Diabetic ketoacidosis. 2. Dehydration. 3. Intractable nausea and vomiting. 4. Gastroparesis. PLAN: Continue with IV fluids and clear liquids. MMODL / IJN: [id number] /
[2024-03-12 06:32] LABS: Glucose,Whole Blood 400 mg/dL (70-110)
[2024-03-12 11:09] LABS: Glucose,Whole Blood 209 mg/dL (70-110)
[2024-03-12 13:46] VITALS: BP 107/72; PULSE 95; RESP 18; TEMP 98
--- NOTE | 2024-03-12 14:22 | P.PN ---
Subjective Progress Note Date: 03/12/24 28-year-old male patient, type I diabetic, coming in with DKA due to drug noncompliance. He has severe anion gap metabolic acidosis. Serum bicarb was less than 5. The blood gas showed a pH of 6.9 with a pCO2 of 26. His blood sugar was in the order of 573. BUN was at 30 with a creatinine of 1.43 and initial potassium was at 5.7. Lactic acid level was 4.7 at time of admission. Normal LFTs. Positive acetone. White cell count of 14.3. EKG showing sinus tachycardia. Mentation is adequate. The patient does not seem to be altered. He has diminished responses. He is able to communicate. Not much cooperative. He is supposed to be on Levemir insulin 25 units daily along with regular insulin 7 units with meals plus a sliding scale coverage. \On 03/10/2024, the patient is being seen for a follow-up. The patient was admitted to the intensive care for DKA and the patient has recovered. The patient has been adequately resuscitated with IV fluids. The patient is currently off insulin drip and the patient is on Levemir insulin 25 units daily and 7 units of NovoLog with meals and insulin scale coverage. Awake and alert and communicating. Most recent serum bicarbonate 19 with a gap of 10. Sodium levels at 144. The patient remains hemodynamically stable. He is currently on room air oxygen. Heart rate is improved and the patient's heart rate is down to 100, sinus. Afebrile. Hemodynamically stable. No focal neurological deficits. On 03/11/2024, the patient on medical floor. Doing well. No specific complaints. Currently on Levemir insulin 25 units daily and NovoLog 7 units with meals. Will need another set of electrolytes and the patient had a anion gap metabolic acidosis based on the most likely obtained on 03/10/2024. Blood sugars are under adequate control for now. On 03/12/2024, patient is calm and comfortable. Repeat electrolytes showed that the patient carries a serum bicarb level of 26 and the anion gap is at 8. Blood sugar from this morning was 116. The patient continues to have significant fluctuation in his blood sugar levels. No hypoglycemia. He remains on Levemir insulin 25 units daily along with the NovoLog 7 units with meals plus a sliding scale coverage. Rest of electrolytes show a potassium level of 4.2. Chloride is 101. Sodium levels at 135. The patient remains on room air oxygen. No significant tachycardia. No other new complaints otherwise for now. Objective - Vital Signs Vital signs: Vital Signs Temp 98.2 F 03/12/24 07:25 Pulse 73 03/12/24 07:25 Resp 20 03/12/24 07:25 BP 150/105 03/12/24 07:25 Pulse Ox 98 03/12/24 07:25 FiO2 Intake & Output 03/11/24 03/12/24 03/12/24 18:59 06:59 18:59 Other: Voiding Method Toilet Toilet # Voids 2 2 - Exam GENERAL EXAM: Alert, thin, pleasant 28-year-old male, on room air, comfortable in no apparent distress. HEAD: Normocephalic. EYES: Normal reaction of pupils, equal size. NOSE: Clear with pink turbinates. THROAT: No erythema or exudates. NECK: No masses, no JVD. CHEST: No chest wall deformity. LUNGS: Equal air entry with no crackles, wheeze, rhonchi or dullness. CVS: S1 and S2 normal with no audible murmur, regular rhythm. ABDOMEN: No hepatosplenomegaly, normal bowel sounds, no guarding or rigidity. SPINE: No scoliosis or deformity SKIN: No rashes CENTRAL NERVOUS SYSTEM: No focal deficits, tone is normal in all 4 extremities. EXTREMITIES: There is no peripheral edema. No clubbing, no cyanosis. Peripheral pulses are intact. - Labs CBC & Chem 7: 03/09/24 13:44 03/11/24 20:47 Labs: Abnormal Lab Results - Last 24 Hours (Table) 03/11/24 03/11/24 03/11/24 Range/Units 16:31 20:07 20:47 Sodium 135 L (137-145) mmol/L Creatinine 0.58 L (0.66-1.25) mg/dL Glucose 116 H (74-99) mg/dL POC Glucose (mg/dL) 149 H 115 H (70-110) mg/dL 03/12/24 03/12/24 Range/Units 06:30 11:08 Sodium (137-145) mmol/L Creatinine (0.66-1.25) mg/dL Glucose (74-99) mg/dL POC Glucose (mg/dL) 400 H 209 H (70-110) mg/dL Assessment and Plan Plan: Acute diabetic ketoacidosis, secondary to medication noncompliance. Patient has had numerous hospital admissions for DKA. The patient is recovered and the patient is currently on Levemir insulin 25 units daily in addition to NovoLog 7 units with meals Severe anion gap metabolic acidosis, recovered Hyperkalemia, improved Severe dehydration, improved Acute kidney injury, secondary to above, resolved Acute leukocytosis, likely reactive to DKA Type 1 diabetes mellitus, with poor medication compliance Diabetic neuropathy History of gastritis History of major depression Plan: Anion gap metabolic acidosis closed and has recovered Patient has been transition to long-acting insulin and the patient is on Levemir 25 units daily along with NovoLog 7 units with meals and SSI coverage Monitor blood sugars Monitor electrolytes from today was noted Advance diet Monitor white cell count Currently on room air oxygen Pulmonary and critical care services will sign off the case
--- NOTE | 2024-03-14 07:43 | P.DS ---
Providers Date of admission: 03/09/24 15:43 Expected date of discharge: 03/12/24 Attending physician: Brown Valenzuela Consults: 03/09/24 15:44 Consult Physician Stat Consulting Provider: Daren Shankar Consult Reason/Comments: ICU Do you want consulting provider notified?: Already Contacted Primary care physician: Brown Valenzuela Hospital Course: Final diagnosis Acute diabetic ketoacidosis, secondary to medication noncompliance. History of type 1 diabetes mellitus, uncontrolled with hyper and hypoglycemia secondary to medication noncompliance Hyperkalemia, improved Severe dehydration Acute kidney injury, secondary to above, resolved Acute leukocytosis, on admission, reactive to DKA, improved Diabetic neuropathy History of gastritis Depression history GI prophylaxis DVT prophylaxis Full code Discharge disposition Patient is being discharged in a stable condition with guarded prognosis to home. Patient will follow-up with Dr. Valenzuela in the outpatient setting upon discharge. Patient is to continue with current insulin regimen. Total time taken is greater than 35 minutes. Hospital course This is a 28-year-old male who was recently admitted with uncontrolled diabetes found to be in DKA. Patient initially in the ICU and transferred out to the [facility] floor with DKA protocol showing improvements in gap and able to tolerate diet. Blood sugar was 400 this morning although was 200 at this time and patient reports feeling improved and would like to go home. Patient reports he has all of his diabetic supplies and insulins. Patient has been instructed to follow-up with primary care provider this week. Currently no reports of chest pain, shortness of breath, or palpitations. Patient is afebrile. No reports of nausea or vomiting and patient is tolerating diet. Patient will be discharged home today. High risk for readmissions and patient has had multiple hospitalizations and ER visits for uncontrolled diabetes. Physical exam: Gen: This is a 28-year-old male who is awake, alert and oriented x 3, well- developed, thin built HEENT: Head is atraumatic, normocephalic. Pupils equal, round. Sclerae is anicteric. NECK: Supple. No JVD. No lymphadenopathy. No thyromegaly. LUNGS: Clear to auscultation. No wheezes or rhonchi. No intercostal retractions. HEART: Regular rate and rhythm. No murmur. ABDOMEN: Soft. Bowel sounds are present. No masses. No tenderness. EXTREMITIES: No pedal edema. No calf tenderness. NEUROLOGICAL: Patient is awake, alert and oriented x3. Cranial nerves 2 through 12 are grossly intact. Please refer to medication reconciliation sheet for a list of medications. The impression and plan of care has been dictated by Meli Gustafson, Nurse Practitioner as directed. Dr. Yadira MD I have performed a history and examination and MDM of this patient, discussed the same with the dictator, and agree with the dictator's assessment and plan as written ,documented as a scribe. Based on total visit time, I have performed more than 50% of the visit. Patient Condition at Discharge: Fair Plan - Discharge Summary New Discharge Prescriptions: New INSULIN ASPART (NovoLOG) [NovoLOG (formulary)] 0 unit SQ ACHS each Continue Insulin Lispro 7 units SQ AC-TID Insulin Detemir [Levemir Flexpen] 25 units SQ DAILY@0700 Discharge Medication List Insulin Lispro 7 units SQ AC-TID 09/17/23 [History] Insulin Detemir [Levemir Flexpen] 25 units SQ DAILY@0700 01/30/24 [History] INSULIN ASPART (NovoLOG) [NovoLOG (formulary)] 0 unit SQ ACHS each 03/12/24 [Rx] Follow up Appointment(s)/Referral(s): Brown Valenzuela MD [Primary Care Provider] - 1 Week [facility] [NON-STAFF] - 03/18/24 10:45 am (New Patient appointment, please bring insurance and ID cards. You will need to complete new patient paperwork. ) Patient Instructions/Handouts: Diabetic Ketoacidosis (DC) Activity/Diet/Wound Care/Special Instructions: Activity limited until follow-up Continue with diabetic diet Follow-up with primary care provider on discharge Continue taking insulins and monitoring blood sugars closely Discharge/Stand Alone Forms: Who Do I Call?, Community Resources, Outpatient Counseling, Area PCPs Discharge Disposition: HOME SELF-CARE
== END 2024-03-12 15:21 | disposition home or self-care (01) | DRG 420 ==
LOC: EC 13:24 → 2SICU 15:43 → 4SSUR 03-10 18:52
PROVIDERS: ADMIT Family Medicine; ATTEND Family Medicine
DX: E10.10 Type 1 diabetes mellitus with ketoacidosis without coma (principal); E10.43 Type 1 diabetes mellitus with diabetic autonomic (poly)neuropathy; D72.829 Elevated white blood cell count, unspecified; E86.0 Dehydration; E87.5 Hyperkalemia; T38.3X6A Underdosing of insulin and oral hypoglycemic [antidiabetic] drugs, initial encounter; F32.A Depression, unspecified; J45.909 Unspecified asthma, uncomplicated; K31.84 Gastroparesis; N17.9 Acute kidney failure, unspecified; Z79.4 Long term (current) use of insulin; Z91.199 Patient's noncompliance with other medical treatment and regimen due to unspecified reason; Z91.128 Patient's intentional underdosing of medication regimen for other reason; Z79.899 Other long term (current) drug therapy; F17.290 Nicotine dependence, other tobacco product, uncomplicated; F41.9 Anxiety disorder, unspecified
CPT/HCPCS: 36415; 80048; 80051; 80053; 81003; 82009; 82565; 82803; 82947; 83605; 83690; 83735; 84100; 84520; 85025; 93005; 96361; 96374; 96375; 99291

== ENCOUNTER 2024-03-14 04:59 | Inpatient (IN) | payer OTHER ==
[2024-03-14] MEDS ORDERED: Magnesium Replacement Protocol 1 EACH MISC MISCELLANE PRN (05:04)
[2024-03-14] MEDS ORDERED: DEXTROSE 50% SYRINGE 50 ML IVP PRN ×2 (05:04)
[2024-03-14] MEDS ORDERED: Potassium Replacement Protocol 1 EACH MISC MISCELLANE PRN (05:04)
[2024-03-14 05:06] LABS: Glucose,Whole Blood >600 mg/dL (70-110)
[2024-03-14 05:31] LABS: VBG PCO2 <15 mmHg (37-51); VBG PH 7.17 (7.31-7.41)
[2024-03-14 05:42] LABS: African American GFR (CKD) 81 (>60 ml/min/1.73 sqM); Blood Urea Nitrogen 29 mg/dL (9-20); Chloride 94 mmol/L (98-107); Non-African American GFR(CKD) 70 (>60 ml/min/1.73 sqM); Sodium 134 mmol/L (137-145)
[2024-03-14] MEDS: METOCLOPRAMIDE 5 MG/ML 2 ML VIAL IVP STA (05:42)
[2024-03-14] MEDS: INSULIN REGULAR 100 UNIT in SODIUM CHLORIDE 0.9% 100 ML IV SCH (05:46)
[2024-03-14] MEDS: INSULIN REGULAR BOLUS (FROM DRIP BAG) IV ONE (05:48)
[2024-03-14] MEDS: SODIUM CHLORIDE 0.9% 1,000 ML IV SCH (05:54)
[2024-03-14 05:57] LABS: Carbon Dioxide <5 mmol/L (22-30); Glucose 933 mg/dL (74-99); Potassium 6.1 mmol/L (3.5-5.1)
[2024-03-14 06:14] LABS: Basophils # (A) 0.1 k/uL (0-0.2); Basophils % (A) 1 %; Eosinophils % (A) 0 %; HGB 12.7 gm/dL (13.0-17.5); Hypochromasia Marked; Lymphocytes # (A) 1.8 k/uL (1.0-4.8); Lymphocytes % (A) 19 %; MCHC 28.9 g/dL (31.0-37.0); MCV 100.4 fL (80.0-100.0); Macrocytosis Slight; Monocytes # (A) 0.3 k/uL (0-1.0); Monocytes % (A) 3 %; Neutrophils # (A) 7.6 k/uL (1.3-7.7); Neutrophils % (A) 77 %; Platelet Count 443 k/uL (150-450); RBC 4.39 m/uL (4.30-5.90); RDW 15.5 % (11.5-15.5); WBC 9.8 k/uL (3.8-10.6)
[2024-03-14 06:43] LABS: Glucose,Whole Blood >600 mg/dL (70-110)
[2024-03-14] MEDS: ONDANSETRON 4 MG/2 ML VIAL IVP STA (06:54)
--- NOTE | 2024-03-14 06:54 | ED ---
Nausea/Vomiting/Diarrhea HPI - General Source: patient, EMS Mode of arrival: EMS Limitations: no limitations - History of Present Illness MD complaint: nausea, vomiting -: hour(s) Description of Vomiting: food contents, coffee grounds Associated Abdominal Pain: Yes Location: diffuse Severity: moderate Quality: aching Consistency: constant Improves with: none Worsens with: none Context: other Associated Symptoms: nausea/vomiting <Shai Anaya - Last Filed: 03/14/24 06:50> <Deana Shin - Last Filed: 03/14/24 17:17> - General Chief complaint: Recheck/Abnormal Lab/Rx Stated complaint: DKA Time Seen by Provider: 03/14/24 05:01 - History of Present Illness Initial comments: Patient is a 28-year-old man with history of diabetes and multiple presentations for DKA is brought by EMS to have evaluation for intractable nausea vomiting and abdominal pain. Patient states symptoms have been getting worse over the course of last night into this morning. (Shai Anaya) - Related Data Home Medications Medication Instructions Recorded Confirmed Insulin Lispro 7 units SQ AC-TID 09/17/23 03/14/24 Insulin Detemir [Levemir Flexpen] 25 units SQ DAILY@0700 01/30/24 03/14/24 INSULIN ASPART (NovoLOG) [NovoLOG See Protocol SQ DIRECTED 03/14/24 03/14/24 (formulary)] Allergies Allergy/AdvReac Type Severity Reaction Status Date / Time No Known Allergies Allergy Verified 03/09/24 14:51 Review of Systems ROS Other: All systems not noted in ROS Statement are negative. Constitutional: Denies: fever, chills Respiratory: Reports: dyspnea. Denies: cough Cardiovascular: Denies: chest pain, palpitations, syncope Gastrointestinal: Reports: abdominal pain, nausea, vomiting. Denies: diarrhea, hematemesis, melena, hematochezia Genitourinary: Denies: dysuria, hematuria Musculoskeletal: Denies: back pain Skin: Denies: rash Neurological: Denies: headache, weakness <Shai Anaya - Last Filed: 03/14/24 06:50> ROS Other: All systems not noted in ROS Statement are negative. <Deana Shin - Last Filed: 03/14/24 17:17> ROS Statement: Those systems with pertinent positive or pertinent negative responses have been documented in the HPI. Past Medical History Past Medical History: Asthma, Diabetes Mellitus, Neurologic Disorder, Skin Disor yevgeniy Additional Past Medical History / Comment(s): IDDM type I, neuropathy bilateral feet, DKA, eczema,gastritis History of Any Multi-Drug Resistant Organisms: None Reported Past Surgical History: Adenoidectomy Additional Past Surgical History / Comment(s): gastritis Past Anesthesia/Blood Transfusion Reactions: No Reported Reaction Past Psychological History: Anxiety, Depression Smoking Status: Vaper Past Alcohol Use History: None Reported Past Drug Use History: None Reported - Past Family History Mother Family Medical History: CVA/TIA Additional Family Medical History / Comment(s): TIA Father Family Medical History: Hyperlipidemia, Hypertension Additional Family Medical History / Comment(s): . <Shai Anaya - Filed: 03/14/24 06:50> General Exam Limitations: no limitations General appearance: alert, in distress Head exam: Present: atraumatic, normocephalic Eye exam: Present: normal appearance. Absent: scleral icterus, conjunctival injection, nystagmus ENT exam: Present: mucous membranes dry Neck exam: Present: normal inspection, full ROM. Absent: tenderness Respiratory exam: Present: normal lung sounds bilaterally. Absent: respiratory distress, wheezes, rales, rhonchi, stridor, accessory muscle use Cardiovascular Exam: Present: normal rhythm, tachycardia, systolic murmur. Absent: diastolic murmur, rubs, gallop GI/Abdominal exam: Present: soft. Absent: distended, tenderness, guarding, rebound, rigid, mass Extremities exam: Present: normal inspection, normal capillary refill. Absent: pedal edema, calf tenderness Back exam: Present: normal inspection. Absent: CVA tenderness (R), CVA ten derness (L) Neurological exam: Present: alert Skin exam: Present: warm, dry, intact, mottled. Absent: rash <Shai Anaya - Last Filed: 03/14/24 06:50> Course Vital Signs 03/14/24 03/14/24 03/14/24 05:01 05:08 05:55 Temperature 97.6 F Pulse Rate 120 H 125 H Respiratory 18 22 Rate Blood Pressure 111/75 90/52 O2 Sat by Pulse 100 100 Oximetry 03/14/24 03/14/24 03/14/24 07:55 12:35 14:46 Temperature 97.9 F Pulse Rate 134 H 130 H 121 H Respiratory 18 18 20 Rate Blood Pressure 112/52 113/70 123/93 O2 Sat by Pulse 96 100 100 Oximetry 03/14/24 16:21 Temperature Pulse Rate 128 H Respiratory 14 Rate Blood Pressure 120/69 O2 Sat by Pulse 98 Oximetry Medical Decision Making - Lab Data Result diagrams: 03/14/24 05:19 03/14/24 05:19 <Shai Anaya - Last Filed: 03/14/24 06:50> - Lab Data Result diagrams: 03/14/24 05:19 03/14/24 14:27 <Deana Shin - Last Filed: 03/14/24 17:17> - Medical Decision Making I placed admitting orders for this patient (Deana Shin) - Lab Data Lab Results 03/14/24 03/14/24 03/14/24 Range/Units 05:04 05:19 05:19 WBC 9.8 (3.8-10.6) k/uL RBC 4.39 (4.30-5.90) m/uL Hgb 12.7 L (13.0-17.5) gm/dL Hct 44.0 (39.0-53.0) % MCV 100.4 H (80.0-100.0) fL MCH 29.0 (25.0-35.0) pg MCHC 28.9 L (31.0-37.0) g/dL RDW 15.5 (11.5-15.5) % Plt Count 443 (150-450) k/uL MPV 9.0 Neutrophils % 77 % Lymphocytes % 19 % Monocytes % 3 % Eosinophils % 0 % Basophils % 1 % Neutrophils # 7.6 (1.3-7.7) k/uL Lymphocytes # 1.8 (1.0-4.8) k/uL Monocytes # 0.3 (0-1.0) k/uL Eosinophils # 0.0 (0-0.7) k/uL Basophils # 0.1 (0-0.2) k/uL Hypochromasia Marked Macrocytosis Slight VBG pH (7.31-7.41) VBG pCO2 (37-51) mmHg Sodium 134 L (137-145) mmol/L Potassium 6.1 H* (3.5-5.1) mmol/L Chloride 94 L (98-107) mmol/L Carbon Dioxide <5 L* (22-30) mmol/L Anion Gap mmol/L BUN 29 H (9-20) mg/dL Creatinine 1.39 H (0.66-1.25) mg/dL Est GFR (CKD-EPI)AfAm 81 (>60 ml/min/1.73 sqM) Est GFR (CKD-EPI)NonAf 70 (>60 ml/min/1.73 sqM) Glucose 933 H* (74-99) mg/dL POC Glucose (mg/dL) >600 H* (70-110) mg/dL POC Glu Fence Making Machine Operator ID Nani Jaiden Phosphorus (2.5-4.5) mg/dL Acetone, Qual Positive (Negative) 03/14/24 03/14/24 03/14/24 Range/Units 05:19 06:42 07:52 WBC (3.8-10.6) k/uL RBC (4.30-5.90) m/uL Hgb (13.0-17.5) gm/dL Hct (39.0-53.0) % MCV (80.0-100.0) fL MCH (25.0-35.0) pg MCHC (31.0-37.0) g/dL RDW (11.5-15.5) % Plt Count (150-450) k/uL MPV Neutrophils % % Lymphocytes % % Monocytes % % Eosinophils % % Basophils % % Neutrophils # (1.3-7.7) k/uL Lymphocytes # (1.0-4.8) k/uL Monocytes # (0-1.0) k/uL Eosinophils # (0-0.7) k/uL Basophils # (0-0.2) k/uL Hypochromasia Macrocytosis VBG pH 7.17 L* (7.31-7.41) VBG pCO2 <15 L* (37-51) mmHg Sodium (137-145) mmol/L Potassium (3.5-5.1) mmol/L Chloride (98-107) mmol/L Carbon Dioxide (22-30) mmol/L Anion Gap mmol/L BUN (9-20) mg/dL Creatinine (0.66-1.25) mg/dL Est GFR (CKD-EPI)AfAm (>60 ml/min/1.73 sqM) Est GFR (CKD-EPI)NonAf (>60 ml/min/1.73 sqM) Glucose (74-99) mg/dL POC Glucose (mg/dL) >600 H* 592 H* (70-110) mg/dL POC Glu Fence Making Machine Operator ID Nani Hwang Huy Fong Phosphorus (2.5-4.5) mg/dL Acetone, Qual (Negative) 03/14/24 03/14/24 03/14/24 Range/Units 08:46 09:34 10:15 WBC (3.8-10.6) k/uL RBC (4.30-5.90) m/uL Hgb (13.0-17.5) gm/dL Hct (39.0-53.0) % MCV (80.0-100.0) fL MCH (25.0-35.0) pg MCHC (31.0-37.0) g/dL RDW (11.5-15.5) % Plt Count (150-450) k/uL MPV Neutrophils % % Lymphocytes % % Monocytes % % Eosinophils % % Basophils % % Neutrophils # (1.3-7.7) k/uL Lymphocytes # (1.0-4.8) k/uL Monocytes # (0-1.0) k/uL Eosinophils # (0-0.7) k/uL Basophils # (0-0.2) k/uL Hypochromasia Macrocytosis VBG pH (7.31-7.41) VBG pCO2 (37-51) mmHg Sodium (137-145) mmol/L Potassium (3.5-5.1) mmol/L Chloride (98-107) mmol/L Carbon Dioxide (22-30) mmol/L Anion Gap mmol/L BUN (9-20) mg/dL Creatinine (0.66-1.25) mg/dL Est GFR (CKD-EPI)AfAm (>60 ml/min/1.73 sqM) Est GFR (CKD-EPI)NonAf (>60 ml/min/1.73 sqM) Glucose (74-99) mg/dL POC Glucose (mg/dL) 380 H 305 H (70-110) mg/dL POC Glu Fence Making Machine Operator ID Steve Fong Phosphorus 3.6 (2.5-4.5) mg/dL Acetone, Qual (Negative) 03/14/24 Range/Units 10:15 WBC (3.8-10.6) k/uL RBC (4.30-5.90) m/uL Hgb (13.0-17.5) gm/dL Hct (39.0-53.0) % MCV (80.0-100.0) fL MCH (25.0-35.0) pg MCHC (31.0-37.0) g/dL RDW (11.5-15.5) % Plt Count (150-450) k/uL MPV Neutrophils % % Lymphocytes % % Monocytes % % Eosinophils % % Basophils % % Neutrophils # (1.3-7.7) k/uL Lymphocytes # (1.0-4.8) k/uL Monocytes # (0-1.0) k/uL Eosinophils # (0-0.7) k/uL Basophils # (0-0.2) k/uL Hypochromasia Macrocytosis VBG pH (7.31-7.41) VBG pCO2 (37-51) mmHg Sodium 147 H (137-145) mmol/L Potassium 4.2 (3.5-5.1) mmol/L Chloride 108 H (98-107) mmol/L Carbon Dioxide 12 L (22-30) mmol/L Anion Gap 27 mmol/L BUN 27 H (9-20) mg/dL Creatinine 1.08 (0.66-1.25) mg/dL Est GFR (CKD-EPI)AfAm >90 (>60 ml/min/1.73 sqM) Est GFR (CKD-EPI)NonAf >90 (>60 ml/min/1.73 sqM) Glucose 227 H (74-99) mg/dL POC Glucose (mg/dL) (70-110) mg/dL POC Glu Fence Making Machine Operator ID Phosphorus (2.5-4.5) mg/dL Acetone, Qual (Negative) Disposition <Shai Anaya - Last Filed: 03/14/24 06:50> Is patient prescribed a controlled substance at d/c from ED?: No Time of Disposition: 10:39 Decision to Admit Reason: Admit from EC Decision Date: 10/20/24 Decision Time: 10:39 <Deana Shin - Last Filed: 03/14/24 17:17> Clinical Impression: DKA (diabetic ketoacidoses) Disposition: ADMITTED IP TO THIS [facility] Condition: Stable
[2024-03-14 07:54] LABS: Glucose,Whole Blood 592 mg/dL (70-110)
[2024-03-14 08:48] LABS: Glucose,Whole Blood 380 mg/dL (70-110)
[2024-03-14 09:36] LABS: Glucose,Whole Blood 305 mg/dL (70-110)
[2024-03-14 10:58] LABS: Glucose,Whole Blood 144 mg/dL (70-110)
[2024-03-14 11:03] LABS: African American GFR (CKD) >90 (>60 ml/min/1.73 sqM); Anion Gap 27 mmol/L; Blood Urea Nitrogen 27 mg/dL (9-20); Carbon Dioxide 12 mmol/L (22-30); Chloride 108 mmol/L (98-107); Glucose 227 mg/dL (74-99); Non-African American GFR(CKD) >90 (>60 ml/min/1.73 sqM); Potassium 4.2 mmol/L (3.5-5.1); Sodium 147 mmol/L (137-145)
[2024-03-14] MEDS: D5-0.45% NACL WITH KCL 20MEQ/L 1,000 ML IV SCH ×2 (11:09→19:47)
[2024-03-14 12:35] LABS: Glucose,Whole Blood 227 mg/dL (70-110)
[2024-03-14] MEDS: ONDANSETRON 4 MG/2 ML VIAL IVP PRN (12:54)
--- NOTE | 2024-03-14 14:40 | P.HPIM ---
History of Present Illness This is a pleasant 28 years old male with past medical history of type 1 diabetes mellitus who has multiple admissions with DKA secondary to nonadherence to therapy. Presents with signs symptoms of DKA again when he was found by someone in his place not feeling well, Patient currently awake alert but he is in distress because keep throwing up from his hyperglycemia, therefore information obtained with him with difficulty and some limitation Patient states that his problem he does not have insurance. However he denies abdominal pain or chest pain. No dyspnea. No new weakness or numbness. Patient denies weakness or numbness in his extremities. No tingling sensation. No headache or dizziness He denies smoking alcohol or illicit drugs to me He is slightly hypotensive with blood pressure 90/52, slightly tachycardic with heart rate at 134, he looks dehydrated therefore we are going to give him a bolus of 1 L of normal saline Vitals look stable other than that he is afebrile. CBC is unremarkable, sodium slightly up at 147, liver enzymes not remarkable Acetone is positive Patient currently on insulin drip and IV fluids Review of Systems -GENERAL: The patient is alert and oriented x3, not patient in distress due to recurrent vomiting s. Well developed, well nourished. HEENT: Pupils are round and equally reacting to light. EOMI. No scleral icterus. No conjunctival pallor. Normocephalic, atraumatic. No pharyngeal erythema. No thyromegaly. CARDIOVASCULAR: S1 and S2 present. No murmurs, rubs, or gallops. PULMONARY: Chest is clear to auscultation, no wheezing , no crackles. aBDOMEN: Soft, nontender, nondistended, normoactive bowel sounds. No palpable organomegaly. MUSCULOSKELETAL: No joint swelling or deformity. EXTREMITIES: No cyanosis, clubbing, or pedal edema. NEUROLOGICAL: Gross neurological examination did not reveal any focal deficits. SKIN: No rashes. no petechiae. Past Medical History Past Medical History: Asthma, Diabetes Mellitus, Neurologic Disorder, Skin Disorder Additional Past Medical History / Comment(s): IDDM type I, neuropathy bilateral feet, DKA, eczema,gastritis History of Any Multi-Drug Resistant Organisms: None Reported Past Surgical History: Adenoidectomy Additional Past Surgical History / Comment(s): gastritis Past Anesthesia/Blood Transfusion Reactions: No Reported Reaction Past Psychological History: Anxiety, Depression Smoking Status: Vaper Past Alcohol Use History: None Reported Past Drug Use History: None Reported - Past Family History Mother Family Medical History: CVA/TIA Additional Family Medical History / Comment(s): TIA Father Family Medical History: Hyperlipidemia, Hypertension Additional Family Medical History / Comment(s): . Medications and Allergies Home Medications Medication Instructions Recorded Confirmed Type Insulin Lispro 7 units SQ AC-TID 09/17/23 03/14/24 History Insulin Detemir [Levemir Flexpen] 25 units SQ DAILY@0700 01/30/24 03/14/24 History INSULIN ASPART (NovoLOG) [NovoLOG See Protocol SQ DIRECTED 03/14/24 03/14/24 History (formulary)] Allergies Allergy/AdvReac Type Severity Reaction Status Date / Time No Known Allergies Allergy Verified 03/09/24 14:51 Physical Exam Vitals: Vital Signs Temp Pulse Resp BP Pulse Ox 03/14/24 07:55 134 H 18 112/52 96 03/14/24 05:55 125 H 22 90/52 100 03/14/24 05:08 97.6 F 03/14/24 05:01 120 H 18 111/75 100 Intake and Output 03/13/24 03/14/24 03/14/24 22:59 06:59 14:59 Intake Total 40.369 Balance 40.369 Intake: Intake, IV Titration 40.369 Amount Insulin Regular 100 unit 40.369 In Sodium Chloride 0.9% 100 ml @ 0.1 UNITS/KG/HR 6.414 mls/hr IV .[id number] [facility] Rx#:[id number] Other: Weight 63.503 kg GENERAL: The patient is alert and oriented x3, not in any acute distress. Well developed, well nourished. -HEENT: Pupils are round and equally reacting to light. EOMI. No scleral icterus. No conjunctival pallor. Normocephalic, atraumatic. No pharyngeal erythema. No thyromegaly. Dehydrated mucous membrane CARDIOVASCULAR: S1 and S2 present. No murmurs, rubs, or gallops. PULMONARY: Chest is clear to auscultation, no wheezing , no crackles. ABDOMEN: Soft, nontender, nondistended, normoactive bowel sounds. No palpable organomegaly. MUSCULOSKELETAL: No joint swelling or deformity. EXTREMITIES: No cyanosis, clubbing, or pedal edema. NEUROLOGICAL: Gross neurological examination did not reveal any focal deficits. Bedridden SKIN: No rashes. no petechiae. Results CBC & Chem 7: 03/14/24 05:19 03/14/24 10:15 Labs: Abnormal Lab Results - Last 24 Hours (Table) 03/14/24 03/14/24 03/14/24 Range/Units 05:04 05:19 05:19 Hgb 12.7 L (13.0-17.5) gm/dL MCV 100.4 H (80.0-100.0) fL MCHC 28.9 L (31.0-37.0) g/dL VBG pH (7.31-7.41) VBG pCO2 (37-51) mmHg Sodium 134 L (137-145) mmol/L Potassium 6.1 H* (3.5-5.1) mmol/L Chloride 94 L (98-107) mmol/L Carbon Dioxide <5 L* (22-30) mmol/L BUN 29 H (9-20) mg/dL Creatinine 1.39 H (0.66-1.25) mg/dL Glucose 933 H* (74-99) mg/dL POC Glucose (mg/dL) >600 H* (70-110) mg/dL 03/14/24 03/14/24 03/14/24 Range/Units 05:19 06:42 07:52 Hgb (13.0-17.5) gm/dL MCV (80.0-100.0) fL MCHC (31.0-37.0) g/dL VBG pH 7.17 L* (7.31-7.41) VBG pCO2 <15 L* (37-51) mmHg Sodium (137-145) mmol/L Potassium (3.5-5.1) mmol/L Chloride (98-107) mmol/L Carbon Dioxide (22-30) mmol/L BUN (9-20) mg/dL Creatinine (0.66-1.25) mg/dL Glucose (74-99) mg/dL POC Glucose (mg/dL) >600 H* 592 H* (70-110) mg/dL 03/14/24 03/14/24 03/14/24 Range/Units 08:46 09:34 10:15 Hgb (13.0-17.5) gm/dL MCV (80.0-100.0) fL MCHC (31.0-37.0) g/dL VBG pH (7.31-7.41) VBG pCO2 (37-51) mmHg Sodium 147 H (137-145) mmol/L Potassium (3.5-5.1) mmol/L Chloride 108 H (98-107) mmol/L Carbon Dioxide 12 L (22-30) mmol/L BUN 27 H (9-20) mg/dL Creatinine (0.66-1.25) mg/dL Glucose 227 H (74-99) mg/dL POC Glucose (mg/dL) 380 H 305 H (70-110) mg/dL 03/14/24 Range/Units 10:56 Hgb (13.0-17.5) gm/dL MCV (80.0-100.0) fL MCHC (31.0-37.0) g/dL VBG pH (7.31-7.41) VBG pCO2 (37-51) mmHg Sodium (137-145) mmol/L Potassium (3.5-5.1) mmol/L Chloride (98-107) mmol/L Carbon Dioxide (22-30) mmol/L BUN (9-20) mg/dL Creatinine (0.66-1.25) mg/dL Glucose (74-99) mg/dL POC Glucose (mg/dL) 144 H (70-110) mg/dL Assessment and Plan Assessment: Diabetic ketoacidosis Dehydration with hypovolemia Nonadherence to his diabetes medication because of lack of insurance Mild hypernatremia Hypotension secondary to above improved Plan: Need for fluid resuscitation Continue with insulin drip Once anion gap closes resume diet. Monitor glucose, electrolytes. Labs and medication were reviewed.. Continue same treatment. Continue with symptomatic treatment. Resume home medication. Monitor labs and vitals. DVT and GI prophylaxis. Further recommendations as per clinical course of the pat ient DVT prophylaxis: Subcutaneous heparin GI Prophylaxis: Pepcid Prognosis is guarded
[2024-03-14 14:45] LABS: Glucose,Whole Blood 165 mg/dL (70-110)
[2024-03-14 14:59] LABS: African American GFR (CKD) >90 (>60 ml/min/1.73 sqM); Anion Gap 23 mmol/L; Blood Urea Nitrogen 24 mg/dL (9-20); Carbon Dioxide 14 mmol/L (22-30); Chloride 106 mmol/L (98-107); Glucose 198 mg/dL (74-99); Non-African American GFR(CKD) >90 (>60 ml/min/1.73 sqM); Phosphorus 2.8 mg/dL (2.5-4.5); Potassium 4.4 mmol/L (3.5-5.1); Sodium 143 mmol/L (137-145)
[2024-03-14 16:11] LABS: Glucose,Whole Blood 230 mg/dL (70-110)
[2024-03-14 16:28] LABS: Amphetamine Screen,Urine Not Detected (NotDetected); Barbiturate Screen,Urine Not Detected (NotDetected); Benzodiazepines Screen,Urine Not Detected (NotDetected); Cocaine Screen,Urine Not Detected (NotDetected); Methadone Screen, Urine Not Detected (NotDetected); Opiate Screen,Urine Not Detected (NotDetected); Oxycodone Screen, Urine Not Detected (NotDetected); Phencyclidine Screen,Urine Not Detected (NotDetected); Tricyclic Antidepressant,Urine Not Detected (NotDetected); Urn Cannabinoid Scrn Detected (NotDetected)
[2024-03-14 17:30] LABS: Glucose,Whole Blood 209 mg/dL (70-110)
[2024-03-14 18:21] LABS: Glucose,Whole Blood 223 mg/dL (70-110)
[2024-03-14 18:57] LABS: Glucose,Whole Blood 233 mg/dL (70-110)
[2024-03-14 19:11] LABS: African American GFR (CKD) >90 (>60 ml/min/1.73 sqM); Anion Gap 19 mmol/L; Blood Urea Nitrogen 22 mg/dL (9-20); Calcium 8.8 mg/dL (8.4-10.2); Carbon Dioxide 14 mmol/L (22-30); Chloride 105 mmol/L (98-107); Glucose 237 mg/dL (74-99); Non-African American GFR(CKD) >90 (>60 ml/min/1.73 sqM); Phosphorus 3.2 mg/dL (2.5-4.5); Potassium 4.8 mmol/L (3.5-5.1); Sodium 138 mmol/L (137-145)
[2024-03-14 20:00] LABS: Glucose,Whole Blood 362 mg/dL (70-110)
[2024-03-14] MEDS: HEPARIN SODIUM,PORCINE 5,000 UNIT/ML 1 ML VIAL SQ SCH (21:14)
[2024-03-14] MEDS: FAMOTIDINE 20 MG/2 ML VIAL IV SCH (21:14)
[2024-03-14 21:27] LABS: Glucose,Whole Blood 275 mg/dL (70-110)
[2024-03-14 22:28] LABS: Glucose,Whole Blood 216 mg/dL (70-110)
[2024-03-14 23:30] LABS: Glucose,Whole Blood 173 mg/dL (70-110)
[2024-03-15 00:31] LABS: Glucose,Whole Blood 119 mg/dL (70-110)
[2024-03-15 01:30] LABS: Glucose,Whole Blood 88 mg/dL (70-110)
[2024-03-15 02:17] LABS: Glucose,Whole Blood 113 mg/dL (70-110)
[2024-03-15 03:04] LABS: Glucose,Whole Blood 128 mg/dL (70-110)
[2024-03-15 04:05] LABS: Glucose,Whole Blood 130 mg/dL (70-110)
[2024-03-15 04:37] LABS: Anisocytosis Slight; Basophils # (A) 0.1 k/uL (0-0.2); Basophils % (A) 0 %; Eosinophils % (A) 0 %; HCT 31.2 % (39.0-53.0); HGB 10.5 gm/dL (13.0-17.5); Lymphocytes % (A) 11 %; MCH 29.9 pg (25.0-35.0); MCHC 33.7 g/dL (31.0-37.0); Mean Platelet Volume 7.1; Monocytes # (A) 0.9 k/uL (0-1.0); Monocytes % (A) 5 %; Neutrophils # (A) 15.3 k/uL (1.3-7.7); Neutrophils % (A) 83 %; Platelet Count 420 k/uL (150-450); RBC 3.51 m/uL (4.30-5.90); RDW 16.6 % (11.5-15.5); WBC 18.5 k/uL (3.8-10.6)
[2024-03-15 04:46] LABS: MCV 88.8 fL (80.0-100.0)
[2024-03-15 04:50] LABS: African American GFR (CKD) >90 (>60 ml/min/1.73 sqM); Anion Gap 10 mmol/L; Blood Urea Nitrogen 17 mg/dL (9-20); Calcium 8.6 mg/dL (8.4-10.2); Carbon Dioxide 18 mmol/L (22-30); Chloride 107 mmol/L (98-107); Glucose 119 mg/dL (74-99); Non-African American GFR(CKD) >90 (>60 ml/min/1.73 sqM); Potassium 4.1 mmol/L (3.5-5.1); Sodium 135 mmol/L (137-145)
[2024-03-15 04:59] LABS: Glucose,Whole Blood 129 mg/dL (70-110)
[2024-03-15 06:02] LABS: Glucose,Whole Blood 168 mg/dL (70-110)
[2024-03-15 07:04] LABS: Glucose,Whole Blood 186 mg/dL (70-110)
[2024-03-15 08:05] LABS: Glucose,Whole Blood 234 mg/dL (70-110)
[2024-03-15 09:03] LABS: Glucose,Whole Blood 217 mg/dL (70-110)
[2024-03-15 10:03] LABS: Glucose,Whole Blood 220 mg/dL (70-110)
[2024-03-15 11:05] LABS: Glucose,Whole Blood 295 mg/dL (70-110)
[2024-03-15 12:02] VITALS: BMI 17.4
[2024-03-15 12:03] LABS: Glucose,Whole Blood 371 mg/dL (70-110)
[2024-03-15 13:02] LABS: Glucose,Whole Blood 295 mg/dL (70-110)
[2024-03-15 14:05] LABS: Glucose,Whole Blood 193 mg/dL (70-110)
[2024-03-15 15:05] LABS: Glucose,Whole Blood 158 mg/dL (70-110)
[2024-03-15 16:03] LABS: Glucose,Whole Blood 177 mg/dL (70-110)
[2024-03-15 17:03] LABS: Glucose,Whole Blood 201 mg/dL (70-110)
[2024-03-15] MEDS: INSULIN ASPART (NovoLOG) 100 UNIT/ML VIAL SQ SCH (17:19)
[2024-03-15 20:29] LABS: Glucose,Whole Blood 170 mg/dL (70-110)
[2024-03-16 05:46] LABS: Glucose,Whole Blood 457 mg/dL (70-110)
[2024-03-16] MEDS: INSULIN DETEMIR (LEVEMIR) 100 UNIT/ML SYR SQ SCH (05:56)
[2024-03-16 06:38] LABS: Glucose,Whole Blood 416 mg/dL (70-110)
[2024-03-16] MEDS ORDERED: DEXTROSE 50% SYRINGE 50 ML IVP PRN ×2 (06:43)
[2024-03-16] MEDS: INSULIN ASPART (NovoLOG) 100 UNIT/ML VIAL SQ SCH (06:56)
[2024-03-16 11:52] LABS: Glucose,Whole Blood 126 mg/dL (70-110)
[2024-03-16 16:44] LABS: Glucose,Whole Blood 169 mg/dL (70-110)
[2024-03-16 20:17] LABS: Glucose,Whole Blood 250 mg/dL (70-110)
[2024-03-16 20:31] VITALS: TEMP 97.6
--- NOTE | 2024-03-17 00:19 | HP ---
HISTORY AND PHYSICAL CHIEF COMPLAINT: DKA. HISTORY OF PRESENT ILLNESS: This gentleman was discharged several days ago and came right back to the emergency room in [place]. REVIEW OF SYSTEMS: Unobtainable. Past medical history, family history, personal and social histories are unchanged. PHYSICAL EXAMINATION: VITAL SIGNS: Normal except for tachycardia of 116. He is dehydrated. HEAD, EARS, EYES, NOSE, MOUTH, AND THROAT: Normal. CHEST: Clear. ABDOMEN: Flat and soft. EXTREMITIES: Normal. IMPRESSION: Diabetic ketoacidosis. PLAN: 1. Bed rest. 2. IV fluids. 3. Control of blood sugars. 4. Discharge when stable. MMODL / IJN: [id number] /
[2024-03-17 02:36] LABS: Glucose,Whole Blood 115 mg/dL (70-110)
[2024-03-17 04:49] VITALS: BP 117/83; PULSE 66; RESP 14
[2024-03-17 06:00] LABS: Glucose,Whole Blood 174 mg/dL (70-110)
[2024-03-17 11:36] LABS: Glucose,Whole Blood 98 mg/dL (70-110)
[2024-03-17 16:42] LABS: Glucose,Whole Blood 72 mg/dL (70-110)
--- NOTE | 2024-03-17 21:40 | DS ---
DISCHARGE SUMMARY CHIEF COMPLAINT: DKA. HISTORY OF PRESENT ILLNESS AND PHYSICAL EXAMINATION: Details of this man's history and physical can be found in the initial workup. LABORATORY STUDIES: While he was in the hospital, he had laboratory studies, details of which can be found in the laboratory section of his chart. COURSE IN THE HOSPITAL: After admission, he was placed on bedrest and started on IV fluids and DKA protocol. Blood sugars came down slowly. He had nausea and vomiting for 2 days and then this eased off. He was stable enough to go home on the and go home on his usual activity, diet, medications. FINAL DIAGNOSIS: Diabetic ketoacidosis. OPERATIONS: None. CONSULTATIONS: None. He is improved. MMODL / IJN: [id number] /
--- NOTE | 2024-03-18 02:20 | PN ---
PROGRESS NOTE DATE OF SERVICE: 03/15/2024 CHIEF COMPLAINT: DKA. HISTORY OF PRESENT ILLNESS: This gentleman is still lethargic and blood pressures dropped. He is still vomiting. PHYSICAL EXAMINATION: GENERAL: He remains dehydrated. CHEST: Clear. CARDIAC: Normal. ABDOMEN: Flat. IMPRESSION: 1. Diabetic ketoacidosis. 2. Dehydration. 3. Nausea and vomiting. PLAN: Continue with IV fluids and management of his sugars until he is stable enough to be discharged. MMODL / IJN: [id number] /
--- NOTE | 2024-03-18 02:32 | PN ---
PROGRESS NOTE DATE OF SERVICE: 03/16/2024 CHIEF COMPLAINT: DKA. HISTORY OF PRESENT ILLNESS: This gentleman is still nauseated and vomiting. Sugars are coming down. PHYSICAL EXAMINATION: CHEST: Clear. CARDIAC: Normal. ABDOMEN: Soft and nontender. EXTREMITIES: Unremarkable. IMPRESSION: Diabetic ketoacidosis with nausea and vomiting. PLAN: Continue management of his diabetes. MMODL / IJN: [id number] /
== END 2024-03-17 17:30 | disposition home or self-care (01) | DRG 420 ==
LOC: EC 04:59 → 3SCARD 10:37 → 3NCARDOBS 03-16 19:53 → 3SCARD 03-16 20:17
PROVIDERS: ADMIT Family Medicine; ATTEND Family Medicine
DX: E10.10 Type 1 diabetes mellitus with ketoacidosis without coma (principal); E87.0 Hyperosmolality and hypernatremia; I95.89 Other hypotension; E10.42 Type 1 diabetes mellitus with diabetic polyneuropathy; Z79.4 Long term (current) use of insulin; E86.0 Dehydration; E86.1 Hypovolemia; Z59.71 Insufficient health insurance coverage
CPT/HCPCS: 36415; 80048; 80051; 80306; 82009; 82565; 82803; 82947; 83036; 84100; 84520; 85025; 93005; 96374; 96375; 99285

== ENCOUNTER 2024-03-19 18:59 | Inpatient (IN) | payer MEDICAID, OTHER ==
--- NOTE | 2024-03-19 19:45 | ED ---
Psych HPI - General Source: patient, RN notes reviewed Mode of arrival: ambulatory <Mely Garrett - Last Filed: 03/19/24 23:45> <Selena Patten - Last Filed: 03/20/24 05:56> - General Chief Complaint: Psychiatric Symptoms Stated Complaint: Mental health Time Seen by Provider: 03/19/24 19:43 - History of Present Illness Initial Comments: This is a 28-year-old male presenting for homicidal ideations. States he has been having homicidal ideations towards his sister's baby daddy for about 2 weeks. He states he "does not want to do anything stupid" and would like to be seen by psych. Denies suicidal ideations. (Mely Garrett) - Related Data Home Medications Medication Instructions Recorded Confirmed Insulin Lispro 7 units SQ AC-TID 09/17/23 03/14/24 Insulin Detemir [Levemir Flexpen] 25 units SQ DAILY@0700 01/30/24 03/14/24 Allergies Allergy/AdvReac Type Severity Reaction Status Date / Time No Known Allergies Allergy Verified 03/19/24 19:11 Review of Systems ROS Other: All systems not noted in ROS Statement are negative. <Mely Garrett - Last Filed: 03/19/24 23:45> ROS Other: All systems not noted in ROS Statement are negative. <Selena Patten - Last Filed: 03/20/24 05:56> ROS Statement: Those systems with pertinent positive or pertinent negative responses have been documented in the HPI. Past Medical History Past Medical History: Asthma, Diabetes Mellitus, Neurologic Disorder, Skin Disorder Additional Past Medical History / Comment(s): IDDM type I, neuropathy bilateral feet, DKA, eczema,gastritis History of Any Multi-Drug Resistant Organisms: None Reported Past Surgical History: Adenoidectomy Additional Past Surgical History / Comment(s): gastritis Past Anesthesia/Blood Transfusion Reactions: No Reported Reaction Past Psychological History: Anxiety, Depression Smoking Status: Vaper Past Alcohol Use History: None Reported Past Drug Use History: None Reported - Past Family History Mother Family Medical History: CVA/TIA Additional Family Medical History / Comment(s): TIA Father Family Medical History: Hyperlipidemia, Hypertension Additional Family Medical History / Comment(s): . <Mely Garrett - Last Filed: 03/19/24 23:45> General Exam Limitations: no limitations General appearance: alert, in no apparent distress Head exam: Present: atraumatic, normocephalic, normal inspection Neurological exam: Present: alert, oriented X3 Psychiatric exam: Present: normal affect, normal mood, homicidal ideation. Absent: suicidal ideation Skin exam: Present: warm, dry, intact, normal color. Absent: rash <Mely Garrett - Last Filed: 03/19/24 23:45> - General Exam Comments Initial Comments: Visual Physical Exam Vital signs reviewed General: Well-appearing, nontoxic, no acute distress. Head: Normocephalic, atraumatic Eyes: PERRLA, EOMI ENT: Airway patent Chest: Nonlabored breathing Skin: No visual rash, normal skin tone Neuro: Alert and oriented 3 Musculoskeletal: No gross abnormalities (Mely Garrett) Course Vital Signs 03/19/24 19:11 Temperature 97.7 F Pulse Rate 73 Respiratory 18 Rate Blood Pressure 92/62 O2 Sat by Pulse 94 L Oximetry Medical Decision Making <Mely Garrett - Last Filed: 03/19/24 23:45> - Lab Data Result diagrams: 03/20/24 00:44 03/20/24 00:44 <Selena Patten - Last Filed: 03/20/24 05:56> - Medical Decision Making I completed the quick note portion of this chart signed Mely Garrett PA-C Was pt. sent in by a medical professional or institution (JAS Lucero, APPLICATION DEVELOPMENT DIRECTOR, urgent care, hospital, or senior living...) When possible be specific @ -[No] Did you speak to anyone other than the patient for history (EMS, parent, family, police, friend...)? What history was obtained from this source @ -[No] Did you review nursing and triage notes (agree or disagree)? Why? @ -[I reviewed and agree with nursing and triage notes] Were old charts reviewed (outside hosp., previous admission, EMS record, old EKG, old radiological studies, urgent care reports/EKG's, senior living records)? Report findings @ -[No old charts were reviewed] Differential Diagnosis (chest pain, altered mental status, abdominal pain women, abdominal pain men, vaginal bleeding, weakness, fever, dyspnea, syncope, headache, dizziness, GI bleed, back pain, seizure, CVA, palpatations, mental health, musculoskeletal)? @ -Differential Mental Health Depression, anxiety, bipolar, psychosis, schizophrenia, borderline personality, situational depression, adjustment disorder, behavioral disorder, brain tumor, malingering, substance abuse, encephalopathy, medication reaction, dementia, hypothyroidism, degenerative neurologic disorder, lupus.... This is not meant to be all-inclusive list EKG interpreted by me (3pts min.). @ -None X-rays interpreted by me (1pt min.). @ -[None done] CT interpreted by me (1pt min.). @ -[None done] U/S interpreted by me (1pt. min.). @ -[None done] What testing was considered but not performed or refused? (CT, X-rays, U/S, labs)? Why? @ -[None] What meds were considered but not given or refused? Why? @ -[None] Did you discuss the management of the patient with other professionals (professionals i.e. , PA, APPLICATION DEVELOPMENT DIRECTOR, lab, RT, psych nurse, social services manager, life educator, teacher, radio officer, case investigator)? Give summary @ -[No] Was smoking cessation discussed for >3mins.? @ -[No] Was critical care preformed (if so, how long)? @ -[No] Were there social determinants of health that impacted care today? How? (Homelessness, low income, unemployed, alcoholism, drug addiction, transportation, low edu. Level, literacy, decrease access to med. care, custodial, rehab)? @ -[No] Was there de-escalation of care discussed even if they declined (Discuss DNR or withdrawal of care, Hospice)? DNR status @ -[No] What co-morbidities impacted this encounter? (DM, HTN, Smoking, COPD, CAD, Ca ncer, CVA, ARF, Chemo, Hep., AIDS, mental health diagnosis, sleep apnea, morbid obesity)? @ -[None] Was patient admitted / discharged? Hospital course, mention meds given and route, prescriptions, significant lab abnormalities, going to OR and other pertinent info. @ -This is a 28-year-old male presenting for homicidal ideations. Patient states over the past 2 weeks he has been having homicidal thoughts about his sister's partner. Denies suicidal ideation. Denies any medical complaints at this time. Blood glucose 328, checked by nursing staff as patient is uncontrolled type I diabetic and is frequently here for DKA. Patient is asymptomatic, resting comfortably on stretcher, and denies any chest pain, shortness of breath, abdominal pain, nausea, vomiting. At this time, I believe is reasonable to give patient at home insulin doses and encourage hydration while he awaits EPS evaluation which is his chief complaint today. Undiagnosed new problem with uncertain prognosis? @ -[No] Drug Therapy requiring intensive monitoring for toxicity (Heparin, Nitro, Insulin, Cardizem)? @ -[No] Were any procedures done? @ -[No] Diagnosis/symptom? @ -[default] Acute, or Chronic, or Acute on Chronic? @ -[default] Uncomplicated (without systemic symptoms) or Complicated (systemic symptoms)? @ -[default] Side effects of treatment? @ -[No] Exacerbation, Progression, or Severe Exacerbation? @ -[No] Poses a threat to life or bodily function? How? (Chest pain, [place], [place], pneumonia, PE, COPD, DKA, ARF, appy, cholecystitis, CVA, Diverticulitis, Homicidal, Suicidal, threat to staff... and all critical care pts) @ -[No] (Mely Garrett) Patient is a 28-year-old male signed out to myself pending EPS evaluation. History diabetes. Noted to be hyperglycemic on arrival. Signed out to myself pending EPS evaluation. Patient was eval by EPS, will be admitted to psychiatric floor. Admitted voluntarily, per EPS RN does not need petition or CERT at this point. (Selena Patten) - Lab Data Lab Results 03/19/24 03/20/24 03/20/24 Range/Units 20:50 00:44 00:44 WBC 7.4 (3.8-10.6) k/uL RBC 3.79 L (4.30-5.90) m/uL Hgb 11.1 L (13.0-17.5) gm/dL Hct 33.3 L (39.0-53.0) % MCV 88.0 (80.0-100.0) fL MCH 29.3 (25.0-35.0) pg MCHC 33.3 (31.0-37.0) g/dL RDW 16.4 H (11.5-15.5) % Plt Count 377 (150-450) k/uL MPV 6.9 Neutrophils % 37 % Lymphocytes % 50 % Monocytes % 7 % Eosinophils % 3 % Basophils % 1 % Neutrophils # 2.7 (1.3-7.7) k/uL Lymphocytes # 3.7 (1.0-4.8) k/uL Monocytes # 0.5 (0-1.0) k/uL Eosinophils # 0.2 (0-0.7) k/uL Basophils # 0.1 (0-0.2) k/uL Anisocytosis Slight Sodium 131 L (137-145) mmol/L Potassium 4.4 (3.5-5.1) mmol/L Chloride 96 L (98-107) mmol/L Carbon Dioxide 27 (22-30) mmol/L Anion Gap 8 mmol/L BUN 18 (9-20) mg/dL Creatinine 0.66 (0.66-1.25) mg/dL Est GFR (CKD-EPI)AfAm >90 (>60 ml/min/1.73 sqM) Est GFR (CKD-EPI)NonAf >90 (>60 ml/min/1.73 sqM) Glucose 300 H (74-99) mg/dL POC Glucose (mg/dL) 328 H (70-110) mg/dL POC Glu [employer] Worker ID Greer Arturo Calcium 8.6 (8.4-10.2) mg/dL Total Bilirubin 0.3 (0.2-1.3) mg/dL AST 22 (17-59) U/L ALT 26 (4-49) U/L Alkaline Phosphatase 101 (38-126) U/L Total Protein 6.1 L (6.3-8.2) g/dL Albumin 3.7 (3.5-5.0) g/dL Urine Color Urine Appearance (Clear) Urine pH (5.0-8.0) Ur Specific [place] (1.001-1.035) Urine Protein (Negative) Urine Glucose (UA) (Negative) Urine Ketones (Negative) Urine Blood (Negative) Urine Nitrite (Negative) Urine Bilirubin (Negative) Urine Urobilinogen (<2.0) mg/dL Ur Leukocyte Esterase (Negative) Amorphous Sediment (None) /hpf Urine Bacteria (None) /hpf Acetone, Qual Negative (Negative) Influenza Type A (PCR) (Not Detectd) Influenza Type B (PCR) (Not Detectd) RSV (PCR) (Not Detectd) SARS-CoV-2 (PCR) (Not Detectd) 03/20/24 03/20/24 03/20/24 Range/Units 01:43 03:01 04:16 WBC (3.8-10.6) k/uL RBC (4.30-5.90) m/uL Hgb (13.0-17.5) gm/dL Hct (39.0-53.0) % MCV (80.0-100.0) fL MCH (25.0-35.0) pg MCHC (31.0-37.0) g/dL RDW (11.5-15.5) % Plt Count (150-450) k/uL MPV Neutrophils % % Lymphocytes % % Monocytes % % Eosinophils % % Basophils % % Neutrophils # (1.3-7.7) k/uL Lymphocytes # (1.0-4.8) k/uL Monocytes # (0-1.0) k/uL Eosinophils # (0-0.7) k/uL Basophils # (0-0.2) k/uL Anisocytosis Sodium (137-145) mmol/L Potassium (3.5-5.1) mmol/L Chloride (98-107) mmol/L Carbon Dioxide (22-30) mmol/L Anion Gap mmol/L BUN (9-20) mg/dL Creatinine (0.66-1.25) mg/dL Est GFR (CKD-EPI)AfAm (>60 ml/min/1.73 sqM) Est GFR (CKD-EPI)NonAf (>60 ml/min/1.73 sqM) Glucose (74-99) mg/dL POC Glucose (mg/dL) 185 H (70-110) mg/dL POC Glu [employer] Worker ID Doron Neal Calcium (8.4-10.2) mg/dL Total Bilirubin (0.2-1.3) mg/dL AST (17-59) U/L ALT (4-49) U/L Alkaline Phosphatase (38-126) U/L Total Protein (6.3-8.2) g/dL Albumin (3.5-5.0) g/dL Urine Color Colorless Urine Appearance Cloudy (Clear) Urine pH 8.0 (5.0-8.0) Ur Specific [place] 1.026 (1.001-1.035) Urine Protein Negative (Negative) Urine Glucose (UA) 4+ H (Negative) Urine Ketones Negative (Negative) Urine Blood Negative (Negative) Urine Nitrite Negative (Negative) Urine Bilirubin Negative (Negative) Urine Urobilinogen <2.0 (<2.0) mg/dL Ur Leukocyte Esterase Negative (Negative) Amorphous Sediment Rare H (None) /hpf Urine Bacteria Rare H (None) /hpf Acetone, Qual (Negative) Influenza Type A (PCR) Not Detected (Not Detectd) Influenza Type B (PCR) Not Detected (Not Detectd) RSV (PCR) Not Detected (Not Detectd) SARS-CoV-2 (PCR) Not Detected (Not Detectd) Disposition <Mely Garrett - Last Filed: 03/19/24 23:45> <Selena Patten - Last Filed: 03/20/24 05:56> Clinical Impression: Homicidal ideation, Hyperglycemia Disposition: TRANSFER TO PSYCH HOSP/UNIT Condition: Stable Referrals: Brown Valenzuela MD [Primary Care Provider] - 1-2 days
[2024-03-19 20:51] LABS: Glucose,Whole Blood 328 mg/dL (70-110)
[2024-03-19] MEDS: INSULIN REGULAR 100 UNIT/ML VIAL (IM/SQ) SQ ONE (23:51)
[2024-03-20 00:52] LABS: Anisocytosis Slight; Basophils # (A) 0.1 k/uL (0-0.2); Basophils % (A) 1 %; Eosinophils # (A) 0.2 k/uL (0-0.7); Eosinophils % (A) 3 %; HCT 33.3 % (39.0-53.0); HGB 11.1 gm/dL (13.0-17.5); Lymphocytes # (A) 3.7 k/uL (1.0-4.8); Lymphocytes % (A) 50 %; MCH 29.3 pg (25.0-35.0); MCHC 33.3 g/dL (31.0-37.0); Mean Platelet Volume 6.9; Monocytes # (A) 0.5 k/uL (0-1.0); Monocytes % (A) 7 %; Neutrophils # (A) 2.7 k/uL (1.3-7.7); Neutrophils % (A) 37 %; Platelet Count 377 k/uL (150-450); RBC 3.79 m/uL (4.30-5.90); RDW 16.4 % (11.5-15.5); WBC 7.4 k/uL (3.8-10.6)
[2024-03-20 01:14] LABS: AST 22 U/L (17-59); African American GFR (CKD) >90 (>60 ml/min/1.73 sqM); Albumin 3.7 g/dL (3.5-5.0); Alkaline Phosphatase 101 U/L (38-126); Anion Gap 8 mmol/L; Blood Urea Nitrogen 18 mg/dL (9-20); Calcium 8.6 mg/dL (8.4-10.2); Carbon Dioxide 27 mmol/L (22-30); Chloride 96 mmol/L (98-107); Glucose 300 mg/dL (74-99); Non-African American GFR(CKD) >90 (>60 ml/min/1.73 sqM); Potassium 4.4 mmol/L (3.5-5.1); Sodium 131 mmol/L (137-145); Total Bilirubin 0.3 mg/dL (0.2-1.3); Total Protein 6.1 g/dL (6.3-8.2)
[2024-03-20 02:00] LABS: ALT 26 U/L (4-49)
[2024-03-20 02:08] LABS: Amorphous Sediment,Urine Rare /hpf; Appearance,Urine Cloudy (Clear); Bacteria,Urine Rare /hpf; Bilirubin,Urine Negative (Negative); Blood,Urine Negative (Negative); Color,Urine Colorless; Glucose,Urine (UA) 4+ (Negative); Ketones,Urine Negative (Negative); Leukocyte Esterase,Urine Negative (Negative); Nitrite,Urine Negative (Negative); Protein,Urine Negative (Negative); Specific Gravity,Urine 1.026 (1.001-1.035); Urobilinogen,Urine <2.0 mg/dL (<2.0)
[2024-03-20 03:02] LABS: Glucose,Whole Blood 185 mg/dL (70-110)
[2024-03-20] MEDS ORDERED: MAGNESIUM HYDROXIDE 2,400 MG/30 ML CUP PO PRN (06:16)
[2024-03-20] MEDS ORDERED: ACETAMINOPHEN TAB 325 MG TAB PO PRN (06:16)
[2024-03-20] MEDS ORDERED: MAG HYDROX/AL HYDROX/SIMETH 355 ML BOTTLE PO PRN (06:16)
[2024-03-20] MEDS ORDERED: IBUPROFEN 600 MG TAB PO PRN (06:16)
[2024-03-20] MEDS ORDERED: LORazepam 2 MG/ML INJ IM PRN (06:16)
[2024-03-20] MEDS ORDERED: haloperidoL 5 MG TAB PO PRN (06:16)
[2024-03-20] MEDS ORDERED: HALOPERIDOL LACTATE 5 MG/ML 1 ML VIAL IM PRN (06:16)
[2024-03-20 07:57] LABS: Glucose,Whole Blood 312 mg/dL (70-110)
[2024-03-20] MEDS: INSULIN ASPART (NovoLOG) 100 UNIT/ML VIAL SQ SCH ×2 (08:30)
[2024-03-20] MEDS: NICOTINE 14MG/24HR PATCH TRANSDERM SCH (08:30)
[2024-03-20] MEDS: INSULIN DETEMIR (LEVEMIR) 100 UNIT/ML SYR SQ SCH (08:30)
[2024-03-20 09:48] LABS: Albumin 4.5 g/dL (3.5-5.0); Bilirubin, Delta 0.2 mg/dL (0.0-0.2); Bilirubin,Unconjugated 0.2 mg/dL (0.0-1.1); Total Bilirubin 0.4 mg/dL (0.2-1.3); Total Protein 7.2 g/dL (6.3-8.2)
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
[2024-03-20] MEDS: buPROPion XL 150 MG TAB.ER.24H PO SCH (11:57)
[2024-03-20 12:55] LABS: Glucose,Whole Blood 111 mg/dL (70-110)
[2024-03-20] MEDS: INSULIN LISPRO (For Pump) 100 UNIT/ML VIAL SQ-PUMP SCH (13:38)
[2024-03-20 17:28] LABS: Glucose,Whole Blood 149 mg/dL (70-110)
[2024-03-20 19:54] LABS: Glucose,Whole Blood 154 mg/dL (70-110)
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
[2024-03-21] MEDS ORDERED: NON FORMULARY DRUG (Insulin Detemir [Levemir Flexpen] 100 UNIT/ML Insuln.Pen) SQ SCH (07:00)
[2024-03-21 07:48] LABS: Glucose,Whole Blood 455 mg/dL (70-110)
--- NOTE | 2024-03-21 10:06 | P.PN ---
Progress Note - Text Interval history: Patient was seen in his roomand was directable and agreeable to speak with freelance writer. continues to report homicidal ideations.At this time patient denies any suicidal intent or plan. Denies any Auditory or visual hallucinations. Patient denies any side effects from the medications and has been compliant with meds. Mental status exam: General Appearance: [Patient appears to be older than stated age,directable Behavior: [No agitated behavior Speech: Patient's speech is fluent and nonpressured. Mood/Affect: Mood is improving mildly, affect is congruent and constricted. Suicidality/Homicidality: homicidal ideation present.Patient denies having any suicidal ideation intent or plan. Perceptions: Patient denies any auditory or visual hallucinations. Though content/process: [There is no evidence of any delusional thought content and thought process is linear and goal-directed.] Memory and concentration: AOX3, grossly intact for the purposes of this session Judgment and insight: poor Assessment/Plan: Continue with current diagnosis. Patient continues to meet criteria for inpatient psychiatric admission for symptom stabilization and safety.[Patient will be maintained on current psychotropic medication regimen.] Monitor for medication compliance and for any psychotropic medication side effects. Will continue to monitor ongoing response to treatment. Encouraged participation in milieu.
[2024-03-21 12:24] LABS: Glucose,Whole Blood 98 mg/dL (70-110)
[2024-03-21 17:26] LABS: Glucose,Whole Blood 44 mg/dL (70-110)
[2024-03-21 17:46] LABS: Glucose,Whole Blood 67 mg/dL (70-110)
[2024-03-21 18:03] LABS: Glucose,Whole Blood 87 mg/dL (70-110)
[2024-03-21 19:53] LABS: Glucose,Whole Blood 379 mg/dL (70-110)
[2024-03-22 08:05] LABS: Glucose,Whole Blood 220 mg/dL (70-110)
[2024-03-22 09:49] LABS: VBG PH 7.4 (7.31-7.41)
[2024-03-22] MEDS ORDERED: ZOLPIDEM 5 MG TAB PO PRN (09:59)
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
[2024-03-22 12:38] LABS: Glucose,Whole Blood 223 mg/dL (70-110)
[2024-03-22 15:46] LABS: Chol/HDL Ratio 4.88 Ratio; LDL Cholesterol,Calculated 80.4 mg/dL (0.0-131.0)
[2024-03-22 16:11] VITALS: BMI 18.7
[2024-03-22 17:30] LABS: Glucose,Whole Blood 230 mg/dL (70-110)
[2024-03-22 20:06] LABS: Glucose,Whole Blood 289 mg/dL (70-110)
[2024-03-23 07:53] LABS: Glucose,Whole Blood 162 mg/dL (70-110)
--- NOTE | 2024-03-23 12:22 | P.PN ---
Progress Note - Text Progress Note Date: 03/23/24 Chief complaint: Homicidal thoughts Interval History: Patient was seen wandering the hallways and was directable and agreeable to speak with commercial lines underwriter in the office. Per nursing notes patient struggled with sleep however discussing this with the patient he had not taken the Ambien and was up reading Star Wars and could not put the book down. He notes moderate depression and anxiety. Asking the patient about homicidal thoughts he notes that he is having some specifically when he is antsy. Asking him if he would act on them 10 actually acting on them and 0 not he rates it 7/10. He denied any suicidal thoughts. Patient denies any auditory, visual hallucinations and denies any paranoia or delusions. Patient denies any side effects from the medications and has been compliant with meds. Mental Status Exam: General Appearance: Patient appears to be stated age is alert, directable, and cooperative. Behavior: Patient is calmly seated without any agitated behavior. Speech: Patient's speech is fluent and nonpressured. Mood/Affect: Mood is improving mildly, affect is congruent and constricted. Suicidality/Homicidality: Patient denies having any suicidal thoughts, notes that he continues to have homicidal thoughts. Perceptions: Patient denies any visual hallucinations and denies any auditory hallucinations Though content/process: There is no evidence of any delusional thought content and thought process is linear and goal-directed. Memory and concentration: AOX3, grossly intact for the purposes of this session Judgment and insight: Improving mildly IMPRESSIONS: Major depressive disorder without psychotic features Borderline personality disorder Anxiety disorder NOS Cannibis use disorder Non adherence to medical treatment ASSESSMENT: Patient is struggling with sleep which may contribute to his impulsive behaviors as well as controlling his thoughts. He was encouraged to take the Ambien tonight and he will be placed under scheduled. He continues to voice homicidal thoughts which makes him a danger to others and needs continued hospitalization. PLAN: -Patient is admitted under voluntary status to MHU for stabilization of psychiatric symptoms and safety. -Medications : Wellbutrin XL 150 mg take 1 tablet by mouth daily for depression Ambien 5 mg take 1 tablet by mouth at bedtime for insomnia -Ativan and Haldol PRN for agitation/aggression -Patient was informed of the risks, benefits and side effects of the medication and patient verbally consented to taking the medications. -Internal Medicine consult to perform medical evaluation and physical. -SW on board for discharge planning. Encourage patient to participate in groups to work on coping skills.
[2024-03-23 12:42] LABS: Glucose,Whole Blood 125 mg/dL (70-110)
[2024-03-23 17:32] LABS: Glucose,Whole Blood 89 mg/dL (70-110)
[2024-03-23 20:01] LABS: Glucose,Whole Blood 303 mg/dL (70-110)
[2024-03-23] MEDS: ZOLPIDEM 5 MG TAB PO SCH (21:05)
[2024-03-24] MEDS: LORazepam 1 MG TAB PO PRN (01:16)
[2024-03-24 07:57] LABS: Glucose,Whole Blood 457 mg/dL (70-110)
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
[2024-03-24 12:39] LABS: Glucose,Whole Blood 263 mg/dL (70-110)
[2024-03-24 17:40] LABS: Glucose,Whole Blood 249 mg/dL (70-110)
[2024-03-24 20:01] LABS: Glucose,Whole Blood 294 mg/dL (70-110)
[2024-03-24] MEDS: busPIRone HCl 10 MG TAB PO SCH (21:19)
[2024-03-25 07:50] LABS: Glucose,Whole Blood 314 mg/dL (70-110)
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
[2024-03-25 12:40] LABS: Glucose,Whole Blood 233 mg/dL (70-110)
[2024-03-25 17:29] LABS: Glucose,Whole Blood 249 mg/dL (70-110)
[2024-03-25] MEDS: INSULIN ASPART (NovoLOG) 100 UNIT/ML VIAL SQ SCH ×2 (17:48)
[2024-03-25 19:51] LABS: Glucose,Whole Blood 403 mg/dL (70-110)
[2024-03-25] MEDS: INSULIN DETEMIR (LEVEMIR) 100 UNIT/ML SYR SQ SCH (20:33)
[2024-03-26 00:46] LABS: Glucose,Whole Blood 40 mg/dL (70-110)
[2024-03-26 01:09] LABS: Glucose,Whole Blood 38 mg/dL (70-110)
[2024-03-26] MEDS: GLUCAGON 1 MG/ML VIAL IM STA (01:17)
[2024-03-26 01:41] LABS: Glucose,Whole Blood 242 mg/dL (70-110)
[2024-03-26 07:51] LABS: Glucose,Whole Blood 109 mg/dL (70-110)
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
[2024-03-26 12:44] LABS: Glucose,Whole Blood 93 mg/dL (70-110)
[2024-03-26 17:30] LABS: Glucose,Whole Blood 415 mg/dL (70-110)
[2024-03-26 20:09] LABS: Glucose,Whole Blood 340 mg/dL (70-110)
[2024-03-26] MEDS: INSULIN DETEMIR (LEVEMIR) 100 UNIT/ML SYR SQ SCH (20:41)
[2024-03-27 02:55] LABS: Glucose,Whole Blood 182 mg/dL (70-110)
[2024-03-27 07:02] VITALS: RESP 16
[2024-03-27 07:57] LABS: Glucose,Whole Blood 72 mg/dL (70-110)
[2024-03-27 12:41] LABS: Glucose,Whole Blood 261 mg/dL (70-110)
[2024-03-27 17:32] LABS: Glucose,Whole Blood 141 mg/dL (70-110)
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
[2024-03-27 20:04] LABS: Glucose,Whole Blood 224 mg/dL (70-110)
[2024-03-27] MEDS ORDERED: INSULIN DETEMIR (LEVEMIR) 100 UNIT/ML SYR SQ SCH (21:00)
[2024-03-28 02:00] LABS: Glucose,Whole Blood 50 mg/dL (70-110)
[2024-03-28 02:00] LABS: Glucose,Whole Blood 52 mg/dL (70-110)
[2024-03-28 02:17] LABS: Glucose,Whole Blood 100 mg/dL (70-110)
[2024-03-28 08:27] LABS: Glucose,Whole Blood 207 mg/dL (70-110)
[2024-03-28 12:39] LABS: Glucose,Whole Blood 253 mg/dL (70-110)
[2024-03-28 17:39] LABS: Glucose,Whole Blood 350 mg/dL (70-110)
[2024-03-28 20:17] LABS: Glucose,Whole Blood 429 mg/dL (70-110)
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
[2024-03-28 23:39] LABS: Glucose,Whole Blood 372 mg/dL (70-110)
[2024-03-29 05:13] LABS: Glucose,Whole Blood 43 mg/dL (70-110)
[2024-03-29 05:41] LABS: Glucose,Whole Blood 81 mg/dL (70-110)
[2024-03-29 07:05] VITALS: TEMP 97.7
[2024-03-29 07:25] LABS: Glucose,Whole Blood 402 mg/dL (70-110)
[2024-03-29 07:57] LABS: Glucose,Whole Blood 361 mg/dL (70-110)
[2024-03-29] MEDS ORDERED: LORazepam 1 MG TAB PO PRN (10:25)
[2024-03-29] MEDS ORDERED: METOCLOPRAMIDE 10 MG TAB PO PRN (10:26)
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
[2024-03-29 17:33] LABS: Glucose,Whole Blood 277 mg/dL (70-110)
[2024-03-29 20:12] LABS: Glucose,Whole Blood 286 mg/dL (70-110)
[2024-03-29] MEDS: MIRTAZAPINE 15 MG TAB PO SCH (20:46)
[2024-03-29] MEDS: INSULIN DETEMIR (LEVEMIR) 100 UNIT/ML SYR SQ SCH (20:46)
[2024-03-30 02:14] LABS: Glucose,Whole Blood 182 mg/dL (70-110)
[2024-03-30 05:20] LABS: Glucose,Whole Blood 38 mg/dL (70-110)
[2024-03-30 05:39] LABS: Glucose,Whole Blood 57 mg/dL (70-110)
[2024-03-30 06:13] LABS: Glucose,Whole Blood 139 mg/dL (70-110)
--- NOTE | 2024-03-30 07:30 | PN ---
PROGRESS NOTE CHIEF COMPLAINT: Hypoglycemia. HISTORY OF PRESENT ILLNESS: This gentleman's blood sugars dropped into the 40s. He was administered proper management. His insulin will be decreased. IMPRESSION: 1. Uncontrolled type 1 diabetes mellitus. 2. Hypoglycemia. 3. Major depression. PLAN: Reduce his insulin dose. GRACE / ALDEN: [id number] /
[2024-03-30 07:50] LABS: Glucose,Whole Blood 149 mg/dL (70-110)
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
[2024-03-30 12:24] LABS: Glucose,Whole Blood 229 mg/dL (70-110)
[2024-03-30 17:33] LABS: Glucose,Whole Blood 276 mg/dL (70-110)
--- NOTE | 2024-03-30 19:44 | PN ---
PROGRESS NOTE DATE OF SERVICE: 03/30/2024 CHIEF COMPLAINT: Uncontrolled type 1 insulin-dependent diabetes mellitus. HISTORY OF PRESENT ILLNESS: This gentleman is doing fairly well, but he is still having episodes of hypoglycemia and his insulin will be decreased. PHYSICAL EXAMINATION: Vital signs are normal and is otherwise unchanged. IMPRESSION: Poorly controlled type 1 insulin-dependent diabetes mellitus with hypoglycemic events. PLAN: Decrease long-acting insulin from 20 to 14 units a day. MMODL / IJN: [id number] /
[2024-03-30 20:07] LABS: Glucose,Whole Blood 383 mg/dL (70-110)
[2024-03-30] MEDS: INSULIN DETEMIR (LEVEMIR) 100 UNIT/ML SYR SQ SCH (20:38)
[2024-03-30] MEDS ORDERED: INSULIN DETEMIR (LEVEMIR) 100 UNIT/ML SYR SQ SCH (21:00)
[2024-03-31 02:13] LABS: Glucose,Whole Blood 283 mg/dL (70-110)
[2024-03-31 07:49] LABS: Glucose,Whole Blood 263 mg/dL (70-110)
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
[2024-03-31 12:33] LABS: Glucose,Whole Blood 326 mg/dL (70-110)
[2024-03-31 17:37] LABS: Glucose,Whole Blood 345 mg/dL (70-110)
[2024-03-31 20:11] LABS: Glucose,Whole Blood 312 mg/dL (70-110)
[2024-03-31] MEDS: INSULIN DETEMIR (LEVEMIR) 100 UNIT/ML SYR SQ SCH (20:47)
[2024-04-01 06:29] VITALS: BP 98/71; PULSE 99
[2024-04-01 07:52] LABS: Glucose,Whole Blood 133 mg/dL (70-110)
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
[2024-04-01 12:35] LABS: Glucose,Whole Blood 385 mg/dL (70-110)
[2024-04-01 17:33] LABS: Glucose,Whole Blood 373 mg/dL (70-110)
[2024-04-01 20:00] LABS: Glucose,Whole Blood 428 mg/dL (70-110)
[2024-04-01] MEDS: INSULIN DETEMIR (LEVEMIR) 100 UNIT/ML SYR SQ SCH (20:37)
[2024-04-01] MEDS: MIRTAZAPINE 15 MG TAB PO SCH (21:59)
[2024-04-02 07:54] LABS: Glucose,Whole Blood 76 mg/dL (70-110)
[2024-04-02] MEDS: INSULIN ASPART (NovoLOG) 100 UNIT/ML VIAL SQ SCH (08:52)
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
[2024-04-02 12:32] LABS: Glucose,Whole Blood 277 mg/dL (70-110)
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
--- NOTE | 2024-04-05 07:42 | PN ---
PROGRESS NOTE DATE OF SERVICE: 04/02/2024 CHIEF COMPLAINT: Uncontrolled diabetes. HISTORY OF PRESENT ILLNESS: This gentleman is doing a bit better. His sugars are not dropping. He did have 1 high sugar in the last 24 hours. IMPRESSION: Uncontrolled and brittle type 1 insulin-dependent diabetes mellitus. PLAN: No change in dosage today. MMODL / IJN: [id number] /
[2024-04-05 08:36] LABS: Glucose,Whole Blood 136 mg/dL (70-110)
== END 2024-04-02 14:03 | disposition home or self-care (01) | DRG 754 ==
LOC: EC 18:59 → 3MHU 03-20 06:14
PROVIDERS: ADMIT Psychiatry & Neurology Psychiatry; ATTEND Psychiatry & Neurology Psychiatry
DX: F32.9 Major depressive disorder, single episode, unspecified (principal); F41.9 Anxiety disorder, unspecified; F60.3 Borderline personality disorder; G47.00 Insomnia, unspecified; K31.84 Gastroparesis; J45.909 Unspecified asthma, uncomplicated; R45.850 Homicidal ideations; R45.851 Suicidal ideations; E10.42 Type 1 diabetes mellitus with diabetic polyneuropathy; E10.43 Type 1 diabetes mellitus with diabetic autonomic (poly)neuropathy; E10.65 Type 1 diabetes mellitus with hyperglycemia; Z79.4 Long term (current) use of insulin; F12.10 Cannabis abuse, uncomplicated; Z71.51 Drug abuse counseling and surveillance of drug abuser; Z71.89 Other specified counseling; Z11.52 Encounter for screening for COVID-19; Z91.199 Patient's noncompliance with other medical treatment and regimen due to unspecified reason; Z91.51 Personal history of suicidal behavior
CPT/HCPCS: 36415; 80053; 80061; 80076; 81001; 82009; 82075; 82803; 83036; 84443; 85025; 87636; 99285

== ENCOUNTER 2024-04-11 09:02 | Inpatient (IN) | payer OTHER ==
[2024-04-11] MEDS ORDERED: DEXTROSE 50% SYRINGE 50 ML IVP PRN ×2 (09:05)
[2024-04-11] MEDS ORDERED: Magnesium Replacement Protocol 1 EACH MISC MISCELLANE PRN (09:05)
[2024-04-11] MEDS ORDERED: Potassium Replacement Protocol 1 EACH MISC MISCELLANE PRN (09:05)
[2024-04-11 09:15] LABS: Glucose,Whole Blood 591 mg/dL (70-110)
[2024-04-11] MEDS: SODIUM CHLORIDE 0.9% 2,000 ML IV ONE (09:21)
[2024-04-11] MEDS: ONDANSETRON 4 MG/2 ML VIAL IVP STA ×2 (09:22→14:51)
[2024-04-11 09:27] LABS: VBG PH 7.16 (7.31-7.41)
[2024-04-11 09:33] LABS: Anisocytosis Slight; HCT 43.8 % (39.0-53.0); HGB 13.4 gm/dL (13.0-17.5); Hypochromasia Marked; MCH 28.6 pg (25.0-35.0); MCHC 30.7 g/dL (31.0-37.0); Platelet Count 544 k/uL (150-450); Poikilocytosis Slight; RDW 16.3 % (11.5-15.5); WBC 30.9 k/uL (3.8-10.6)
[2024-04-11 09:37] LABS: African American GFR (CKD) 78 (>60 ml/min/1.73 sqM); Blood Urea Nitrogen 26 mg/dL (9-20); Chloride 98 mmol/L (98-107); Non-African American GFR(CKD) 68 (>60 ml/min/1.73 sqM); Sodium 140 mmol/L (137-145)
[2024-04-11 09:38] LABS: MCV 93.2 fL (80.0-100.0)
[2024-04-11] MEDS: INSULIN REGULAR BOLUS (FROM DRIP BAG) IV ONE (09:46)
[2024-04-11] MEDS: INSULIN REGULAR 100 UNIT in SODIUM CHLORIDE 0.9% 100 ML IV SCH (09:47)
--- NOTE | 2024-04-11 09:47 | ED ---
General Adult HPI - General Chief complaint: Nausea/Vomiting/Diarrhea Stated complaint: high blood sugar/vomitting Time Seen by Provider: 04/11/24 09:35 Source: patient, EMS, RN notes reviewed, old records reviewed Mode of arrival: EMS - History of Present Illness Initial comments: Is a 28-year-old male who presents to the emergency department as a type I diabetic. Patient states he stopped taking his insulin a couple days ago. Patient states since yesterday has been vomiting and having abdominal pain. Patient denies any fever chills or cough. Patient denies any chest pain difficulty breathing shortness of breath. Patient states he is just extremely nauseous and cannot stop vomiting. Patient denies any diarrhea. Patient has any back pain. Patient denies any injury. - Related Data Home Medications Medication Instructions Recorded Confirmed Gabapentin 600 mg PO TID 04/11/24 04/11/24 INSULIN ASPART (NovoLOG) [NovoLOG 7 unit SQ AC-TID 04/11/24 04/11/24 (formulary)] Insulin Detemir [Levemir Flexpen] 25 units SQ DAILY@0700 04/11/24 04/11/24 Previous Rx's Medication Instructions Recorded Mirtazapine [Remeron] 45 mg PO HS 14 Days #14 tablet 04/02/24 buPROPion XL [Wellbutrin XL] 150 mg PO DAILY 14 Days #14 tab 04/02/24 busPIRone HCl [Buspar] 10 mg PO BID 14 Days #28 tab 04/02/24 Allergies Allergy/AdvReac Type Severity Reaction Status Date / Time No Known Allergies Allergy Verified 04/11/24 10:27 Review of Systems ROS Statement: Those systems with pertinent positive or pertinent negative responses have been documented in the HPI. ROS Other: All systems not noted in ROS Statement are negative. Past Medical History Past Medical History: Asthma, Diabetes Mellitus, Neurologic Disorder, Skin Disorder Additional Past Medical History / Comment(s): IDDM type I, neuropathy bilateral feet, DKA, eczema,gastritis History of Any Multi-Drug Resistant Organisms: None Reported Past Surgical History: Adenoidectomy Additional Past Surgical History / Comment(s): gastritis Past Anesthesia/Blood Transfusion Reactions: No Reported Reaction Past Psychological History: Anxiety, Depression Smoking Status: Current every day smoker, Vaper Past Drug Use History: Marijuana - Past Family History Mother Family Medical History: CVA/TIA Additional Family Medical History / Comment(s): TIA Father Family Medical History: Hyperlipidemia, Hypertension Additional Family Medical History / Comment(s): . General Exam - General Exam Comments Initial Comments: GENERAL: Patient is well-developed and well-nourished. Patient is nontoxic and well-h ydrated and is in moderate distress. ENT: Neck is soft and supple. No significant lymphadenopathy is noted. Oropharynx is clear. Moist mucous membranes. Neck has full range of motion without elic iting any pain. EYES: The sclera were anicteric and conjunctiva were pink and moist. Extraocular movements were intact and pupils were equal round and reactive to light. Eyelids were unremarkable. PULMONARY: Patient is tachypneic CARDIOVASCULAR: Patient is tachycardic ABDOMEN: Soft and nontender with normal bowel sounds. SKIN: Skin is clear with no lesions or rashes and otherwise unremarkable. NEUROLOGIC: Patient is alert and oriented x3. Cranial nerves II through XII are grossly int act. Motor and sensory are also intact. Normal speech, volume and content. Symmetrical smile. MUSCULOSKELETAL: Normal extremities with adequate strength and full range of motion. LYMPHATICS: No significant lymphadenopathy is noted PSYCHIATRIC: Normal psychiatric evaluation. Course Vital Signs 04/11/24 09:37 Temperature 97.1 F L Pulse Rate 129 H Respiratory 18 Rate Blood Pressure 135/95 O2 Sat by Pulse 100 Oximetry Medical Decision Making - Medical Decision Making EKG is interpreted by myself. EKG shows sinus tachycardia at 130 bpm AK normal 152 QRS is 97 QT interval 331 QTc is 408. Patient's EKG shows no ST segment elevation. Was pt. sent in by a medical professional or institution (, PA, CURRICULUM DIRECTOR, urgent care, hospital, or assisted...) When possible be specific @ -No Did you speak to anyone other than the patient for history (EMS, parent, family, police, friend...)? What history was obtained from this source @ -No Did you review nursing and triage notes (agree or disagree)? Why? @ -I reviewed and agree with nursing and triage notes Were old charts reviewed (outside hosp., previous admission, EMS record, old EKG, old radiological studies, urgent care reports/EKG's, assisted records)? Report findings @ -No old charts were reviewed Differential Diagnosis? @ -Diabetic ketoacidosis, hyperglycemia, HHS, this is not an all-inclusive list EKG interpreted by me (3pts min.). @ -As above X-rays interpreted by me (1pt min.). @ -None done CT interpreted by me (1pt min.). @ -None done U/S interpreted by me (1pt. min.). @ -None done What testing was considered but not performed or refused? (CT, X-rays, U/S, labs)? Why? @ -None What meds were considered but not given or refused? Why? @ -None Did you discuss the management of the patient with other professionals (professionals i.e. DrLinda, PA, CURRICULUM DIRECTOR, lab, RT, psych nurse, psychologist social, software product specialist, t eacher, lodge officer, case management specialist)? Give summary @ -I spoke with Dr. Valenzuela he agreed to admit the patient admit the patient wrote admitting orders. I spoke with Dr. Montoya patient will be sent to the ICU. Was smoking cessation discussed for >3mins.? @ -No Was critical care preformed (if so, how long)? @ -35 minutes Were there social determinants of health that impacted care today? How? (Home lessness, low income, unemployed, alcoholism, drug addiction, transportation, low edu. Level, literacy, decrease access to med. care, senior living, rehab)? @ -No Was there de-escalation of care discussed even if they declined (Discuss DNR or withdrawal of care, Hospice)? DNR status @ -No What co-morbidities impacted this encounter? (DM, HTN, Smoking, COPD, CAD, Cancer, CVA, ARF, Chemo, Hep., AIDS, mental health diagnosis, sleep apnea, morbid obesity)? @ -None Was patient admitted / discharged? Hospital course, mention meds given and route, prescriptions, significant lab abnormalities, going to OR and other pertinent info. @ -Patient was given a couple liters of normal saline and patient had an insulin bolus as well as an insulin drip and Zofran on his initial presentation. Patient was feeling considerably better however he was very acidotic and in DKA so patient will be admitted to the ICU to Dr. Valenzuela with a consult to Dr. Montoya Undiagnosed new problem with uncertain prognosis? @ -No Drug Therapy requiring intensive monitoring for toxicity (Heparin, Nitro, Insulin, Cardizem)? @ -No Were any procedures done? @ -No Diagnosis/symptom? @ -Diabetic ketoacidosis Acute, or Chronic, or Acute on Chronic? @ -Acute Uncomplicated (without systemic symptoms) or Complicated (systemic symptoms)? @ -Comp Side effects of treatment? @ -No Exacerbation, Progression, or Severe Exacerbation? @ -No Poses a threat to life or bodily function? How? (Chest pain, USA, VT, pneumonia, PE, COPD, DKA, ARF, appy, cholecystitis, CVA, Diverticulitis, Homicidal, Suicidal, threat to staff... and all critical care pts) @ -Yes this could lead to severe dehydration and endorgan dysfunction - Lab Data Result diagrams: 04/11/24 09:19 04/11/24 09:19 Lab Results 04/11/24 04/11/24 04/11/24 Range/Units 09:09 09:19 09:19 WBC 30.9 H (3.8-10.6) k/uL RBC 4.70 (4.30-5.90) m/uL Hgb 13.4 (13.0-17.5) gm/dL Hct 43.8 (39.0-53.0) % MCV 93.2 D (80.0-100.0) fL MCH 28.6 (25.0-35.0) pg MCHC 30.7 L (31.0-37.0) g/dL RDW 16.3 H (11.5-15.5) % Plt Count 544 H (150-450) k/uL MPV 8.0 Neutrophils % (Manual) 87 % Band Neuts % (Manual) 1 % Lymphocytes % (Manual) 5 % Monocytes % (Manual) 7 % Metamyelocytes % 1 % Neutrophils # (Manual) 27.10 H (1.3-7.7) k/uL Lymphocytes # (Manual) 1.55 (1.0-4.8) k/uL Monocytes # (Manual) 2.16 H (0-1.0) k/uL Metamyelocytes # (Man) 0.31 H (0) k/uL Nucleated RBCs 0 (0-0) /100 WBC Manual Slide Review Performed Hypochromasia Marked Poikilocytosis Slight Anisocytosis Slight VBG pH (7.31-7.41) VBG pCO2 (37-51) mmHg VBG HCO3 (24-28) mmol/L Sodium 140 (137-145) mmol/L Potassium 5.0 (3.5-5.1) mmol/L Chloride 98 (98-107) mmol/L Carbon Dioxide <5 L* (22-30) mmol/L Anion Gap mmol/L BUN 26 H (9-20) mg/dL Creatinine 1.43 H (0.66-1.25) mg/dL Est GFR (CKD-EPI)AfAm 78 (>60 ml/min/1.73 sqM) Est GFR (CKD-EPI)NonAf 68 (>60 ml/min/1.73 sqM) Glucose 595 H* (74-99) mg/dL POC Glucose (mg/dL) 591 H* (70-110) mg/dL POC Glu Welfare Project Manager ID [place] August Acetone, Qual Positive (Negative) 04/11/24 04/11/24 Range/Units 09:19 09:42 WBC (3.8-10.6) k/uL RBC (4.30-5.90) m/uL Hgb (13.0-17.5) gm/dL Hct (39.0-53.0) % MCV (80.0-100.0) fL MCH (25.0-35.0) pg MCHC (31.0-37.0) g/dL RDW (11.5-15.5) % Plt Count (150-450) k/uL MPV Neutrophils % (Manual) % Band Neuts % (Manual) % Lymphocytes % (Manual) % Monocytes % (Manual) % Metamyelocytes % % Neutrophils # (Manual) (1.3-7.7) k/uL Lymphocytes # (Manual) (1.0-4.8) k/uL Monocytes # (Manual) (0-1.0) k/uL Metamyelocytes # (Man) (0) k/uL Nucleated RBCs (0-0) /100 WBC Manual Slide Review Hypochromasia Poikilocytosis Anisocytosis VBG pH 7.16 L* (7.31-7.41) VBG pCO2 16 L* (37-51) mmHg VBG HCO3 6 L* (24-28) mmol/L Sodium (137-145) mmol/L Potassium (3.5-5.1) mmol/L Chloride (98-107) mmol/L Carbon Dioxide (22-30) mmol/L Anion Gap mmol/L BUN (9-20) mg/dL Creatinine (0.66-1.25) mg/dL Est GFR (CKD-EPI)AfAm (>60 ml/min/1.73 sqM) Est GFR (CKD-EPI)NonAf (>60 ml/min/1.73 sqM) Glucose (74-99) mg/dL POC Glucose (mg/dL) 509 H* (70-110) mg/dL POC Glu Welfare Project Manager ID Gilberto Ro Acetone, Qual (Negative) Disposition Clinical Impression: DKA (diabetic ketoacidoses) Disposition: ADMITTED IP TO THIS HOSP Referrals: Brown Valenzuela MD [Primary Care Provider] - 1-2 days Time of Disposition: 10:42
[2024-04-11 09:49] LABS: Glucose,Whole Blood 509 mg/dL (70-110)
[2024-04-11 10:02] LABS: Band Neutrophils % 1 %; Lymphocytes # (M) 1.55 k/uL (1.0-4.8); Metamyelocytes # (M) 0.31 k/uL (0); Metamyelocytes % 1 %; Monocytes # (M) 2.16 k/uL (0-1.0); Neutrophils % (M) 87 %; Nucleated Red Blood Cells 0 /100 WBC (0-0); Total Cells Counted 200
[2024-04-11 10:03] LABS: Carbon Dioxide <5 mmol/L (22-30); Glucose 595 mg/dL (74-99)
[2024-04-11 10:42] LABS: Glucose,Whole Blood 379 mg/dL (70-110)
[2024-04-11] MEDS ORDERED: INSULIN REGULAR 100 UNIT in SODIUM CHLORIDE 0.9% 100 ML IV SCH (10:45)
[2024-04-11] MEDS: SODIUM CHLORIDE 0.9% 1,000 ML IV SCH ×2 (10:51→12:20)
[2024-04-11 11:37] LABS: Glucose,Whole Blood 313 mg/dL (70-110)
[2024-04-11 12:25] LABS: Glucose,Whole Blood 249 mg/dL (70-110)
[2024-04-11] MEDS: D5-0.45% NACL WITH KCL 20MEQ/L 1,000 ML IV SCH (12:32)
[2024-04-11 12:55] LABS: African American GFR (CKD) >90 (>60 ml/min/1.73 sqM); Anion Gap 24 mmol/L; Blood Urea Nitrogen 24 mg/dL (9-20); Chloride 113 mmol/L (98-107); Glucose 247 mg/dL (74-99); Non-African American GFR(CKD) >90 (>60 ml/min/1.73 sqM); Potassium 4.3 mmol/L (3.5-5.1); Sodium 145 mmol/L (137-145)
[2024-04-11 12:56] LABS: Carbon Dioxide 8 mmol/L (22-30)
--- NOTE | 2024-04-11 13:17 | P.CNPUL ---
History of Present Illness Consult date: 04/11/24 Requesting physician: Brown Valenzuela Reason for consult: other (Critical care management) Chief complaint: Nausea and vomiting, abdominal pain History of present illness: This is a 28-year-old male patient with a known history of type 1 diabetes mellitus, diabetic neuropathy, anxiety/depression, chronic tobacco dependence, vaping, marijuana use. He has frequent hospitalizations for diabetic ketoacidosis and a history of noncompliance. He was brought into the emergency room today by EMS for a 2-day history of nausea vomiting and abdominal pain. He admitted to stopping taking his insulin several days ago. Hemoglobin 13.4. Platelets 544. Venous gas revealed a pH of 7.16. pCO2 of 16 and a bicarb of 6. Sodium 145. Potassium 4.3. Initial bicarb less than 5. Currently 8. Anion gap 24. BUN 24. Creatinine 1.01. Presenting blood sugar 595. Currently 247. Acetone positive. Insulin drip at 7.33 units/h. KCl at 150 mL/h. Normal saline at 200 mL/h. He has received 3 L of fluid resuscitation. Today in consultation in the emergency department. Currently resting on the stretcher. Still having episodes of nausea and vomiting. Slightly tachycardic.. Maintaining good O2 saturations in the high 90s on room air. Review of Systems REVIEW OF SYSTEMS: CONSTITUTIONAL: Denies any recent significant weight loss or weight gain. EYES: Denies change in vision. EARS, NOSE, MOUTH, THROAT: Denies headaches, denies sore throat. CARDIOVASCULAR: Denies chest pain, palpitations or syncopal episodes. RESPIRATORY: Denies shortness of breath, cough, congestion or hemoptysis. GASTROINTESTINAL: Positive for nausea, vomiting and abdominal pain GENITOURINARY: Denies hematuria, denies infections. MUSKULOSKELETAL: Denies pain, denies swelling. INTEGUMENTARY: Denies rash, denies eczema. NEUROLOGICAL: Denies recent memory loss, no recent seizure activity. PSYCHIATRIC: Denies anxiety, denies depression. HEMATOLOGIC/LYMPHATIC: Denies anemia, denies enlarged lymph nodes. Past Medical History Past Medical History: Asthma, Diabetes Mellitus, Neurologic Disorder, Skin Disorder Additional Past Medical History / Comment(s): IDDM type I, neuropathy bilateral feet, DKA, eczema,gastritis History of Any Multi-Drug Resistant Organisms: None Reported Past Surgical History: Adenoidectomy Additional Past Surgical History / Comment(s): gastritis Past Anesthesia/Blood Transfusion Reactions: No Reported Reaction Past Psychological History: Anxiety, Depression Smoking Status: Current every day smoker, Vaper Past Drug Use History: Marijuana - Past Family History Mother Family Medical History: CVA/TIA Additional Family Medical History / Comment(s): TIA Father Family Medical History: Hyperlipidemia, Hypertension Additional Family Medical History / Comment(s): . Medications and Allergies Home Medications Medication Instructions Recorded Confirmed Type Mirtazapine [Remeron] 45 mg PO HS 14 Days #14 tablet 04/02/24 04/11/24 Rx buPROPion XL [Wellbutrin XL] 150 mg PO DAILY 14 Days #14 tab 04/02/24 04/11/24 Rx busPIRone HCl [Buspar] 10 mg PO BID 14 Days #28 tab 04/02/24 04/11/24 Rx Gabapentin 600 mg PO TID 04/11/24 04/11/24 History INSULIN ASPART (NovoLOG) [NovoLOG 7 unit SQ AC-TID 04/11/24 04/11/24 History (formulary)] Insulin Detemir [Levemir Flexpen] 25 units SQ DAILY@0700 04/11/24 04/11/24 History Allergies Allergy/AdvReac Type Severity Reaction Status Date / Time No Known Allergies Allergy Verified 04/11/24 10:27 Physical Exam Vitals: Vital Signs Temp Pulse Resp BP Pulse Ox 04/11/24 11:36 133 H 24 111/70 98 04/11/24 09:37 97.1 F L 129 H 18 135/95 100 Intake and Output 04/10/24 04/11/24 04/11/24 22:59 06:59 14:59 Other: Weight 72.575 kg GENERAL EXAM: Alert, thin 28-year-old male, on room air, fairly comfortable in no apparent distress. HEAD: Normocephalic. EYES: Normal reaction of pupils, equal size. NOSE: Clear with pink turbinates. THROAT: No erythema or exudates. NECK: No masses, no JVD. CHEST: No chest wall deformity. LUNGS: Equal air entry with no crackles, wheeze, rhonchi or dullness. CVS: S1 and S2 normal with no audible murmur, regular rhythm. ABDOMEN: No hepatosplenomegaly, normal bowel sounds, no guarding or rigidity. SPINE: No scoliosis or deformity SKIN: No rashes CENTRAL NERVOUS SYSTEM: No focal deficits, tone is normal in all 4 extremities. EXTREMITIES: There is no peripheral edema. No clubbing, no cyanosis. Peripheral pulses are intact. Results - Laboratory Findings CBC and BMP: 04/11/24 09:19 04/11/24 12:17 Abnormal lab findings: Abnormal Labs 04/11/24 04/11/24 04/11/24 09:09 09:19 09:19 WBC 30.9 H MCHC 30.7 L RDW 16.3 H Plt Count 544 H Neutrophils # (Manual) 27.10 H Monocytes # (Manual) 2.16 H Metamyelocytes # (Man) 0.31 H VBG pH VBG pCO2 VBG HCO3 Chloride Carbon Dioxide <5 L* BUN 26 H Creatinine 1.43 H Glucose 595 H* POC Glucose (mg/dL) 591 H* 04/11/24 04/11/24 04/11/24 09:19 09:42 10:40 WBC MCHC RDW Plt Count Neutrophils # (Manual) Monocytes # (Manual) Metamyelocytes # (Man) VBG pH 7.16 L* VBG pCO2 16 L* VBG HCO3 6 L* Chloride Carbon Dioxide BUN Creatinine Glucose POC Glucose (mg/dL) 509 H* 379 H 04/11/24 04/11/24 04/11/24 11:36 12:17 12:24 WBC MCHC RDW Plt Count Neutrophils # (Manual) Monocytes # (Manual) Metamyelocytes # (Man) VBG pH VBG pCO2 VBG HCO3 Chloride 113 H Carbon Dioxide 8 L* BUN 24 H Creatinine Glucose 247 H POC Glucose (mg/dL) 313 H 249 H Assessment and Plan Assessment: Acute diabetic ketoacidosis secondary to missed doses of insulin Nausea and vomiting secondary to above Tachycardia secondary to above Reactive leukocytosis secondary to above Anion gap metabolic acidosis secondary to above Acute kidney injury secondary to above Diabetes mellitus, type I Diabetic neuropathy History of major depression History of medication noncompliance and frequent admissions for DKA Plan: The patient was seen and evaluated Labs and medications reviewed Continue the DKA protocol To be admitted to the intensive care unit Obtain a chest x-ray to rule out aspiration Again educated regarding importance of medication compliance We will continue to follow and make further recommendations based on his clinical status I have personally seen and examined the patient, performed the documentation and the assessment and plan as written. Number of minutes spent on the visit: 20 Dictation was produced using [employer] dictation software. Please excuse any grammatical, word or spelling errors.
[2024-04-11 13:43] LABS: Glucose,Whole Blood 197 mg/dL (70-110)
--- NOTE | 2024-04-11 13:46 | XR ---
EXAMINATION TYPE: XR chest 1V portable DATE OF EXAM: 04/11/2024 1:30 PM COMPARISON: 01/18/2024 CLINICAL INDICATION: Male, 28 years old with history of Rule out aspiration, cough, lethargy, vomitin g TECHNIQUE: XR chest 1V portable view(s) obtained. FINDINGS: The heart size is normal. The pulmonary vasculature is normal. The lungs are clear. IMPRESSION: 1. No acute pulmonary process. [facility], , 04/11/2024 1:44 PM
[2024-04-11 14:47] LABS: Glucose,Whole Blood 162 mg/dL (70-110)
[2024-04-11 15:17] LABS: Glucose,Whole Blood 139 mg/dL (70-110)
[2024-04-11 16:01] LABS: Glucose,Whole Blood 151 mg/dL (70-110)
[2024-04-11 16:23] LABS: African American GFR (CKD) >90 (>60 ml/min/1.73 sqM); Anion Gap 18 mmol/L; Blood Urea Nitrogen 22 mg/dL (9-20); Carbon Dioxide 13 mmol/L (22-30); Chloride 113 mmol/L (98-107); Glucose 160 mg/dL (74-99); Non-African American GFR(CKD) >90 (>60 ml/min/1.73 sqM); Phosphorus 2.6 mg/dL (2.5-4.5); Potassium 4.1 mmol/L (3.5-5.1); Sodium 144 mmol/L (137-145)
[2024-04-11 16:50] LABS: Glucose,Whole Blood 159 mg/dL (70-110)
[2024-04-11 17:55] LABS: Glucose,Whole Blood 158 mg/dL (70-110)
[2024-04-11] MEDS: INSULIN ASPART (NovoLOG) 100 UNIT/ML VIAL SQ SCH (18:19)
[2024-04-11] MEDS: METOCLOPRAMIDE 5 MG/ML 2 ML VIAL IVP PRN (18:52)
[2024-04-11 19:05] LABS: Glucose,Whole Blood 142 mg/dL (70-110)
[2024-04-11] MEDS ORDERED: NALOXONE 0.4 MG/ML 1 ML VIAL IV PRN (19:15)
[2024-04-11 19:56] LABS: Glucose,Whole Blood 146 mg/dL (70-110)
[2024-04-11 20:43] LABS: African American GFR (CKD) >90 (>60 ml/min/1.73 sqM); Anion Gap 13 mmol/L; Blood Urea Nitrogen 21 mg/dL (9-20); Calcium 8.5 mg/dL (8.4-10.2); Carbon Dioxide 16 mmol/L (22-30); Chloride 113 mmol/L (98-107); Glucose 157 mg/dL (74-99); Non-African American GFR(CKD) >90 (>60 ml/min/1.73 sqM); Phosphorus 2.8 mg/dL (2.5-4.5); Potassium 4.1 mmol/L (3.5-5.1); Sodium 142 mmol/L (137-145)
[2024-04-11 21:16] LABS: Glucose,Whole Blood 198 mg/dL (70-110)
[2024-04-11 22:01] LABS: Glucose,Whole Blood 185 mg/dL (70-110)
[2024-04-11 22:59] LABS: Glucose,Whole Blood 202 mg/dL (70-110)
[2024-04-11 23:55] LABS: Glucose,Whole Blood 205 mg/dL (70-110)
[2024-04-12 00:38] LABS: African American GFR (CKD) >90 (>60 ml/min/1.73 sqM); Anion Gap 12 mmol/L; Blood Urea Nitrogen 19 mg/dL (9-20); Calcium 8.5 mg/dL (8.4-10.2); Carbon Dioxide 17 mmol/L (22-30); Chloride 110 mmol/L (98-107); Glucose 205 mg/dL (74-99); Magnesium 1.9 mg/dL (1.6-2.3); Non-African American GFR(CKD) >90 (>60 ml/min/1.73 sqM); Phosphorus 2.8 mg/dL (2.5-4.5); Potassium 4.1 mmol/L (3.5-5.1); Sodium 139 mmol/L (137-145)
[2024-04-12 01:07] LABS: Glucose,Whole Blood 193 mg/dL (70-110)
[2024-04-12 02:05] LABS: Glucose,Whole Blood 193 mg/dL (70-110)
[2024-04-12 03:07] LABS: Glucose,Whole Blood 208 mg/dL (70-110)
[2024-04-12 04:25] LABS: Anisocytosis Slight; Basophils # (A) 0.1 k/uL (0-0.2); Basophils % (A) 0 %; Eosinophils # (A) 0.3 k/uL (0-0.7); Eosinophils % (A) 2 %; HCT 34.8 % (39.0-53.0); HGB 11.2 gm/dL (13.0-17.5); Hypochromasia Slight; Lymphocytes # (A) 1.9 k/uL (1.0-4.8); Lymphocytes % (A) 9 %; MCH 28.6 pg (25.0-35.0); MCV 89.4 fL (80.0-100.0); Mean Platelet Volume 6.7; Monocytes # (A) 1.1 k/uL (0-1.0); Monocytes % (A) 5 %; Neutrophils # (A) 17.8 k/uL (1.3-7.7); Neutrophils % (A) 83 %; Platelet Count 402 k/uL (150-450); RDW 16.1 % (11.5-15.5); WBC 21.5 k/uL (3.8-10.6)
[2024-04-12 04:27] LABS: Glucose,Whole Blood 220 mg/dL (70-110)
[2024-04-12 04:42] LABS: African American GFR (CKD) >90 (>60 ml/min/1.73 sqM); Anion Gap 8 mmol/L; Blood Urea Nitrogen 15 mg/dL (9-20); Calcium 8.4 mg/dL (8.4-10.2); Carbon Dioxide 19 mmol/L (22-30); Chloride 108 mmol/L (98-107); Glucose 224 mg/dL (74-99); Non-African American GFR(CKD) >90 (>60 ml/min/1.73 sqM); Sodium 135 mmol/L (137-145)
[2024-04-12 04:43] LABS: Magnesium 1.8 mg/dL (1.6-2.3); Phosphorus 2.7 mg/dL (2.5-4.5)
[2024-04-12] MEDS: INSULIN DETEMIR (LEVEMIR) 100 UNIT/ML SYR SQ SCH (05:01)
[2024-04-12 06:41] LABS: Glucose,Whole Blood 193 mg/dL (70-110)
[2024-04-12] MEDS: INSULIN ASPART (NovoLOG) 100 UNIT/ML VIAL SQ SCH (06:45)
[2024-04-12 10:19] VITALS: BP 117/61; PULSE 101; RESP 16; TEMP 97.7
[2024-04-12 11:14] VITALS: BMI 19.3
[2024-04-12 11:25] LABS: Glucose,Whole Blood 86 mg/dL (70-110)
--- NOTE | 2024-04-12 11:47 | P.PN ---
Subjective Progress Note Date: 04/12/24 This is a 28-year-old male patient with a known history of type 1 diabetes mellitus, diabetic neuropathy, anxiety/depression, chronic tobacco dependence, vaping, marijuana use. He has frequent hospitalizations for diabetic ketoacidosis and a history of noncompliance. He was brought into the emergency room today by EMS for a 2-day history of nausea vomiting and abdominal pain. He admitted to stopping taking his insulin several days ago. Hemoglobin 13.4. Platelets 544. Venous gas revealed a pH of 7.16. pCO2 of 16 and a bicarb of 6. Sodium 145. Potassium 4.3. Initial bicarb less than 5. Currently 8. Anion gap 24. BUN 24. Creatinine 1.01. Presenting blood sugar 595. Currently 247. Acetone positive. Insulin drip at 7.33 units/h. KCl at 150 mL/h. Normal saline at 200 mL/h. He has received 3 L of fluid resuscitation. Today in consultation in the emergency department. Currently resting on the stretcher. Still having episodes of nausea and vomiting. Slightly tachycardic.. Ma intaining good O2 saturations in the high 90s on room air. The patient is seen today April 12, 2024 in follow-up in the intensive care unit. He is currently resting comfortably in bed. Awake and alert in no acute distress. Maintaining good O2 saturations in the 90s on room air. He is tolerating a diet. No further nausea or vomiting. No abdominal pain. Chest x- ray revealed no acute pulmonary process. White count 21.5. Hemoglobin 11.2. Platelets 402. Sodium 135. Bicarb 19. Anion gap 8. BUN 15. Creatinine 0.65. Glucose 224. He is off the insulin drip. He has been transitioned to Levemir and NovoLog sliding scale. Objective - Vital Signs Vital signs: Vital Signs Temp 97.7 F 04/12/24 08:00 Pulse 101 H 04/12/24 08:00 Resp 16 04/12/24 08:00 BP 117/61 04/12/24 08:00 Pulse Ox 98 04/12/24 08:00 FiO2 Intake & Output 04/11/24 04/12/24 04/12/24 18:59 06:59 18:59 Intake Total 589.366 5872.769 20 Output Total 0 650 Balance 896.152 5023.769 20 Weight 72.575 kg 70.4 kg 70.4 kg Intake: IV 450 1550 20 D5-0.45% NaCl with KCl 450 1550 20Meq/l 1,000 ml @ 150 mls/hr IV .[id number] [facility] Rx# :[id number] Invasive Line 1 10 Invasive Line 2 10 Intake, IV Titration 40.437 23.769 Amount Insulin Regular 100 unit 40.437 23.769 In Sodium Chloride 0.9% 100 ml @ 0.1 UNITS/KG/HR 7.33 mls/hr IV .[id number] [facility] Rx#:[id number] Oral 960 Output: Urine 0 650 Other: Voiding Method Urinal Urinal # Voids 0 0 - Exam GENERAL EXAM: Alert, pleasant 28-year-old male, on room air, comfortable in no apparent distress. HEAD: Normocephalic. EYES: Normal reaction of pupils, equal size. NOSE: Clear with pink turbinates. THROAT: No erythema or exudates. NECK: No masses, no JVD. CHEST: No chest wall deformity. LUNGS: Equal air entry with no crackles, wheeze, rhonchi or dullness. CVS: S1 and S2 normal with no audible murmur, regular rhythm. ABDOMEN: No hepatosplenomegaly, normal bowel sounds, no guarding or rigidity. SPINE: No scoliosis or deformity SKIN: No rashes CENTRAL NERVOUS SYSTEM: No focal deficits, tone is normal in all 4 extremities. EXTREMITIES: There is no peripheral edema. No clubbing, no cyanosis. Peripheral pulses are intact. - Labs CBC & Chem 7: 04/12/24 04:16 04/12/24 04:16 Labs: Abnormal Lab Results - Last 24 Hours (Table) 04/11/24 04/11/24 04/11/24 Range/Units 12:17 12:24 13:42 WBC (3.8-10.6) k/uL RBC (4.30-5.90) m/uL Hgb (13.0-17.5) gm/dL Hct (39.0-53.0) % RDW (11.5-15.5) % Neutrophils # (1.3-7.7) k/uL Monocytes # (0-1.0) k/uL Sodium (137-145) mmol/L Chloride 113 H (98-107) mmol/L Carbon Dioxide 8 L* (22-30) mmol/L BUN 24 H (9-20) mg/dL Creatinine (0.66-1.25) mg/dL Glucose 247 H (74-99) mg/dL POC Glucose (mg/dL) 249 H 197 H (70-110) mg/dL 04/11/24 04/11/24 04/11/24 Range/Units 14:45 15:15 15:50 WBC (3.8-10.6) k/uL RBC (4.30-5.90) m/uL Hgb (13.0-17.5) gm/dL Hct (39.0-53.0) % RDW (11.5-15.5) % Neutrophils # (1.3-7.7) k/uL Monocytes # (0-1.0) k/uL Sodium (137-145) mmol/L Chloride 113 H (98-107) mmol/L Carbon Dioxide 13 L (22-30) mmol/L BUN 22 H (9-20) mg/dL Creatinine (0.66-1.25) mg/dL Glucose 160 H (74-99) mg/dL POC Glucose (mg/dL) 162 H 139 H (70-110) mg/dL 04/11/24 04/11/24 04/11/24 Range/Units 15:59 16:48 17:54 WBC (3.8-10.6) k/uL RBC (4.30-5.90) m/uL Hgb (13.0-17.5) gm/dL Hct (39.0-53.0) % RDW (11.5-15.5) % Neutrophils # (1.3-7.7) k/uL Monocytes # (0-1.0) k/uL Sodium (137-145) mmol/L Chloride (98-107) mmol/L Carbon Dioxide (22-30) mmol/L BUN (9-20) mg/dL Creatinine (0.66-1.25) mg/dL Glucose (74-99) mg/dL POC Glucose (mg/dL) 151 H 159 H 158 H (70-110) mg/dL 04/11/24 04/11/24 04/11/24 Range/Units 19:03 19:55 20:14 WBC (3.8-10.6) k/uL RBC (4.30-5.90) m/uL Hgb (13.0-17.5) gm/dL Hct (39.0-53.0) % RDW (11.5-15.5) % Neutrophils # (1.3-7.7) k/uL Monocytes # (0-1.0) k/uL Sodium (137-145) mmol/L Chloride 113 H (98-107) mmol/L Carbon Dioxide 16 L (22-30) mmol/L BUN 21 H (9-20) mg/dL Creatinine (0.66-1.25) mg/dL Glucose 157 H (74-99) mg/dL POC Glucose (mg/dL) 142 H 146 H (70-110) mg/dL 04/11/24 04/11/24 04/11/24 Range/Units 21:03 21:59 22:58 WBC (3.8-10.6) k/uL RBC (4.30-5.90) m/uL Hgb (13.0-17.5) gm/dL Hct (39.0-53.0) % RDW (11.5-15.5) % Neutrophils # (1.3-7.7) k/uL Monocytes # (0-1.0) k/uL Sodium (137-145) mmol/L Chloride (98-107) mmol/L Carbon Dioxide (22-30) mmol/L BUN (9-20) mg/dL Creatinine (0.66-1.25) mg/dL Glucose (74-99) mg/dL POC Glucose (mg/dL) 198 H 185 H 202 H (70-110) mg/dL 04/11/24 04/12/24 04/12/24 Range/Units 23:53 00:13 01:05 WBC (3.8-10.6) k/uL RBC (4.30-5.90) m/uL Hgb (13.0-17.5) gm/dL Hct (39.0-53.0) % RDW (11.5-15.5) % Neutrophils # (1.3-7.7) k/uL Monocytes # (0-1.0) k/uL Sodium (137-145) mmol/L Chloride 110 H (98-107) mmol/L Carbon Dioxide 17 L (22-30) mmol/L BUN (9-20) mg/dL Creatinine (0.66-1.25) mg/dL Glucose 205 H (74-99) mg/dL POC Glucose (mg/dL) 205 H 193 H (70-110) mg/dL 04/12/24 04/12/24 04/12/24 Range/Units 02:04 03:05 04:16 WBC 21.5 H (3.8-10.6) k/uL RBC 3.90 L (4.30-5.90) m/uL Hgb 11.2 L (13.0-17.5) gm/dL Hct 34.8 L (39.0-53.0) % RDW 16.1 H (11.5-15.5) % Neutrophils # 17.8 H (1.3-7.7) k/uL Monocytes # 1.1 H (0-1.0) k/uL Sodium (137-145) mmol/L Chloride (98-107) mmol/L Carbon Dioxide (22-30) mmol/L BUN (9-20) mg/dL Creatinine (0.66-1.25) mg/dL Glucose (74-99) mg/dL POC Glucose (mg/dL) 193 H 208 H (70-110) mg/dL 04/12/24 04/12/24 04/12/24 Range/Units 04:16 04:17 06:40 WBC (3.8-10.6) k/uL RBC (4.30-5.90) m/uL Hgb (13.0-17.5) gm/dL Hct (39.0-53.0) % RDW (11.5-15.5) % Neutrophils # (1.3-7.7) k/uL Monocytes # (0-1.0) k/uL Sodium 135 L (137-145) mmol/L Chloride 108 H (98-107) mmol/L Carbon Dioxide 19 L (22-30) mmol/L BUN (9-20) mg/dL Creatinine 0.65 L (0.66-1.25) mg/dL Glucose 224 H (74-99) mg/dL POC Glucose (mg/dL) 220 H 193 H (70-110) mg/dL Assessment and Plan Assessment: Acute diabetic ketoacidosis secondary to missed doses of insulin. Recovered Nausea and vomiting secondary to above, recovered Tachycardia secondary to above Reactive leukocytosis secondary to above Anion gap metabolic acidosis secondary to above, recovered Acute kidney injury secondary to above Diabetes mellitus, type I Diabetic neuropathy History of major depression History of medication noncompliance and frequent admissions for DKA Plan: The patient was seen and evaluated Labs and medications reviewed Currently off the insulin drip Transition to Levemir and NovoLog sliding scale Again educated regarding importance of medication compliance Transfer to the regular medical floor Home once cleared by medicine I have personally seen and examined the patient, performed the documentation and the assessment and plan as written. Number of minutes spent on the visit: 10 Dictation was produced using [employer] dictation software. Please excuse any grammatical, word or spelling errors.
--- NOTE | 2024-04-14 16:08 | CDI ---
Documentation Clarification Form Date: 04/14/2024 12:00:00 AM From: Fer Aragon Admit Date: 04/11/2024 10:42:00 AM Patient Name: Raul Marquez Visit Number: [id number] Discharge Date: 04/12/2024 12:51:00 PM ATTENTION: The Clinical Documentation Specialists (CDI) and [facility] Coding Staff appreciate your assistance in clarifying documentation. Please respond to the clarification below the line at the bottom and electronically sign. The CDI & [facility] Coding staff will review the response and follow-up if needed. Please note: Queries are made part of the Legal Health Record. If you have any questions, please contact the author of this message via ITS. Doctor/Provider: Jillian Vega The patient has tachycardia, leukocytosis, and an SHANTEL documented per the 04/11 Pulmonology consult. Based on this information and the findings below, is there an additional diagnosis that is clinically appropriate for this patient? History/Risk Factors: 28-year-old male patient with a known history of type 1 diabetes mellitus, diabetic neuropathy, anxiety/depression, chronic tobacco dependence, vaping, marijuana use. He has frequent hospitalizations for diabetic ketoacidosis and a history of noncompliance. Clinical Indicators: 04/12 Progress note: Acute diabetic ketoacidosis secondary to missed doses of insulin. Recovered, Tachycardia secondary to above, Reactive leukocytosis secondary to above, Acute kidney injury secondary to above Treatment: Insulin drip, 0.9% NS 2L bolus, 0.9% NS 200 ml/hr. Is there an additional diagnosis that is clinically appropriate for this patient? [ ] Non-infectious SIRS causing Acute Kidney Injury [ x ] No additional diagnosis/not clinically significant [ ] Other, please specify [ ] Unable to determine SIRS Criteria: 2 or more of the following may indicate SIRS Temperature < 96.8F (36C) or > 101.0F (38.3C) Heart Rate > 90 bpm Respiratory Rate > 20 breaths/min or PaCO2 < 32 mmHg White Blood Cell Count > 12,000 or < 4,000 cells/mm3 or > 10% bands (Template Last Revised: May 2023) MTDD
--- NOTE | 2024-04-14 16:33 | CDI ---
Documentation Clarification Form Date: 04/14/2024 12:00:00 AM From: Fer Aragon Admit Date: 04/11/2024 10:42:00 AM Patient Name: Raul Marquez Visit Number: [id number] Discharge Date: 04/12/2024 12:51:00 PM ATTENTION: The Clinical Documentation Specialists (CDI) and [facility] Coding Staff appreciate your assistance in clarifying documentation. Please respond to the clarification below the line at the bottom and electronically sign. The CDI & [facility] Coding staff will review the response and follow-up if needed. Please note: Queries are made part of the Legal Health Record. If you have any questions, please contact the author of this message via ITS. Doctor/Provider: Jillian Vega Your patient has an abnormal lab value: Chloride 113. Please clarify if there is an additional diagnosis and/or clinical significance related to this value. History/Risk Factors: 28-year-old male patient with a known history of type 1 diabetes mellitus, diabetic neuropathy, anxiety/depression, chronic tobacco dependence, vaping, marijuana use. He has frequent hospitalizations for diabetic ketoacidosis and a history of noncompliance. Clinical indicators: 04/11 Pulmonology consult: Acute diabetic ketoacidosis secondary to missed doses of insulin, Anion gap metabolic acidosis secondary to above, Acute kidney injury secondary to above EMR Lab value: Chloride: [id number] (04/11-04/12) Treatment: Daily lab monitoring, Insulin drip, 0.9% NS 2L Bolus, 0.9% NS 200ml/hr (04/11) Is there an additional diagnosis and/or clinical significance related to the above lab result/information? [ ] Hypochloremia [ x ] No additional diagnosis/Not clinically significant [ ] Other, please specify [ ] Unable to determine (Template Last Revised: June 2020) MTDD
--- NOTE | 2024-04-15 03:03 | HP ---
HISTORY AND PHYSICAL CHIEF COMPLAINT: DKA. HISTORY OF PRESENT ILLNESS: This is another admission for this 28-year-old white male with type 1 insulin-dependent diabetes mellitus, which he does not take care of. He has been out of the hospital every week. He does not take insulin and comes in DKA. He came to emergency room with a blood sugar of 595. White count was 30,900. REVIEW OF SYSTEMS: Not obtainable because he is lethargic. Past medical history, family history, personal and social histories are all otherwise unremarkable and noncontributory or unchanged. PHYSICAL EXAMINATION: VITAL SIGNS: Blood pressure is 155/95 with pulse of 129, respirations 42. GENERAL: He appeared to be pale, dehydrated and lethargic. HEAD, EARS, EYES, NOSE, MOUTH, AND THROAT: Otherwise normal. CHEST: Clear. CARDIAC: Demonstrates sinus tachycardia. ABDOMEN: Soft and nontender. EXTREMITIES: Normal. NEUROLOGIC: He is intact. ASSESSMENT: He is admitted to the hospital with diagnoses of, 1. Diabetic ketoacidosis. 2. Hypertension. 3. Leukocytosis. 4. Type 1 insulin-dependent diabetes mellitus. 5. Depression. 6. Gastroparesis. PLAN: 1. Bed rest. 2. IV fluids. 3. Rehydrate. 4. DKA protocol. MMODL / IJN: [id number] /
== END 2024-04-12 12:51 | disposition home or self-care (01) | DRG 420 ==
LOC: EC 09:02 → 2SICU 10:42
PROVIDERS: ADMIT Family Medicine; ATTEND Family Medicine
DX: E10.10 Type 1 diabetes mellitus with ketoacidosis without coma (principal); E10.42 Type 1 diabetes mellitus with diabetic polyneuropathy; N17.9 Acute kidney failure, unspecified; D72.829 Elevated white blood cell count, unspecified; J45.909 Unspecified asthma, uncomplicated; K29.70 Gastritis, unspecified, without bleeding; R00.0 Tachycardia, unspecified; F17.290 Nicotine dependence, other tobacco product, uncomplicated; Z79.4 Long term (current) use of insulin; Z79.899 Other long term (current) drug therapy; Z91.148 Patient's other noncompliance with medication regimen for other reason; Z82.49 Family history of ischemic heart disease and other diseases of the circulatory system
CPT/HCPCS: 36415; 71045; 80048; 80051; 82009; 82565; 82803; 82947; 83735; 84100; 84520; 85025; 93005; 96361; 96374; 96375; 99291

== ENCOUNTER 2024-04-25 20:01 | Inpatient (IN) | payer OTHER ==
--- NOTE | 2024-04-25 20:16 | ED ---
Recheck HPI - General Chief Complaint: Recheck/Abnormal Lab/Rx Stated Complaint: NVD Time Seen by Provider: 04/25/24 20:05 Source: patient, EMS, RN notes reviewed, old records reviewed Mode of arrival: EMS Limitations: no limitations - History of Present Illness Initial Comments: This is a 28-year-old male to the ER for evaluation today. Patient presents today for evaluation regards to likely DKA, nausea vomiting elevated blood sugar and has not been feeling well for a few days. MD Complaint: abnormal lab (Elevated blood sugar) -: days(s) Returns Today for: Called Because of Abnormal Lab/Test, persistent/worsening pain related to initial visit Symptoms Since Prior Visit: worsening pain Context: called for abnormal lab result Associated Symptoms: shortness of breath, malaise, nausea - Related Data Home Medications Medication Instructions Recorded Confirmed Gabapentin 600 mg PO TID 04/11/24 04/11/24 INSULIN ASPART (NovoLOG) [NovoLOG 7 unit SQ AC-TID 04/11/24 04/11/24 (formulary)] Insulin Detemir [Levemir Flexpen] 25 units SQ DAILY@0700 04/11/24 04/11/24 Previous Rx's Medication Instructions Recorded Mirtazapine [Remeron] 45 mg PO HS 14 Days #14 tablet 04/02/24 buPROPion XL [Wellbutrin XL] 150 mg PO DAILY 14 Days #14 tab 04/02/24 busPIRone HCl [Buspar] 10 mg PO BID 14 Days #28 tab 04/02/24 Allergies Allergy/AdvReac Type Severity Reaction Status Date / Time No Known Allergies Allergy Verified 04/25/24 20:15 Review of Systems ROS Statement: Those systems with pertinent positive or pertinent negative responses have been documented in the HPI. ROS Other: All systems not noted in ROS Statement are negative. Past Medical History Past Medical History: Asthma, Diabetes Mellitus, Neurologic Disorder, Skin Disorder Additional Past Medical History / Comment(s): IDDM type I, neuropathy bilateral feet, DKA, eczema,gastritis History of Any Multi-Drug Resistant Organisms: None Reported Past Surgical History: Adenoidectomy Additional Past Surgical History / Comment(s): gastritis Past Anesthesia/Blood Transfusion Reactions: No Reported Reaction Past Psychological History: Anxiety, Depression Smoking Status: Current every day smoker, Vaper Past Drug Use History: Marijuana - Past Family History Mother Family Medical History: CVA/TIA Additional Family Medical History / Comment(s): TIA Father Family Medical History: Hyperlipidemia, Hypertension Additional Family Medical History / Comment(s): . General Exam Limitations: altered mental status, physical limitation General appearance: alert, anxious, lethargic, in distress Head exam: Present: atraumatic, normocephalic, normal inspection Eye exam: Present: normal appearance, PERRL, EOMI. Absent: scleral icterus, conjunctival injection, periorbital swelling ENT exam: Present: normal exam, mucous membranes dry Neck exam: Present: normal inspection. Absent: tenderness, meningismus, lymphadenopathy Respiratory exam: Present: normal lung sounds bilaterally. Absent: respiratory distress, wheezes, rales, rhonchi, stridor Cardiovascular Exam: Present: regular rate, tachycardia, normal heart sounds. Absent: systolic murmur, diastolic murmur, rubs, gallop, clicks GI/Abdominal exam: Present: soft, normal bowel sounds. Absent: distended, tenderness, guarding, rebound, rigid Extremities exam: Present: normal inspection, full ROM, normal capillary refill. Absent: tenderness, pedal edema, joint swelling, calf tenderness Back exam: Present: normal inspection Neurological exam: Present: alert, oriented X3, CN II-XII intact Psychiatric exam: Present: normal affect, normal mood Skin exam: Present: warm, dry, intact, normal color. Absent: rash Course Vital Signs 04/25/24 04/25/24 20:10 22:19 Temperature 97.4 F L Pulse Rate 129 H 128 H Respiratory 20 18 Rate Blood Pressure 120/76 107/59 O2 Sat by Pulse 100 99 Oximetry - Reevaluation(s) Reevaluation #1: 04/25/24 23:13 Medical records reviewed Reevaluation #2: 04/25/24 23:13 Patient symptoms are mildly improved Reevaluation #3: 04/25/24 23:13 Patient informed of results questions answered Reevaluation #4: Was pt. sent in by a medical professional or institution (, PA, HONING MACHINE SET UP OPERATOR TOOL, urgent care, hospital, or [place] [facility] facility...) When possible be specific @ -no Did you speak to anyone other than the patient for history (EMS, parent, family, police, friend...)? What history was obtained from this source @ -no Did you review nursing and triage notes (agree or disagree)? Why? @ -agree Are old charts reviewed (outside hosp., previous admission, EMS record, old EKG, old radiological studies, urgent care reports/EKG's, [place] [facility] records)? Report findings @ -yes Differential Diagnosis (chest pain, altered mental status, abdominal pain women, abdominal pain men, vaginal bleeding, weakness, fever, dyspnea, syncope, headache, dizziness, GI bleed, back pain, seizure, CVA, palpatations, mental health, musculoskeletal)? @ -prior EKG interpreted by me (3pts min.). @ -yes X-rays interpreted by me (1pt min.). @ -yes negative for acute disease CT interpreted by me (1pt min.). @ -no U/S interpreted by me (1pt. min.). @ -no What testing was considered but not performed or refused? (CT, X-rays, U/S, labs)? Why? @ -none What meds were considered but not given or refused? Why? @ -none Did you discuss the management of the patient with other professionals (professionals i.e. , PA, HONING MACHINE SET UP OPERATOR TOOL, lab, RT, psych nurse, oncology social worker, business lawyer, teacher, ship's electronic warfare officer, field case manager)? Give summary @ -no Was smoking cessation discussed for >3mins.? @ -no Was critical care preformed (if so, how long)? @ -no Were there social determinants of health that impacted care today? How? (Homelessness, low income, unemployed, alcoholism, drug addiction, chandler sportation, low edu. Level, literacy, decrease access to med. care, fpc, rehab)? @ -none Was there de-escalation of care discussed even if they declined (Discuss DNR or withdrawal of care, Hospice)? DNR status @ -no What co-morbidities impacted this encounter? (DM, HTN, Smoking, COPD, CAD, Cancer, CVA, ARF, Chemo, Hep., AIDS, mental health diagnosis, sleep apnea, morbid obesity)? @ -none Was patient admitted / discharged? Hospital course, mention meds given and route, prescriptions, significant lab abnormalities, going to OR and other pertinent info. @ - Undiagnosed new problem with uncertain prognosis? @ -no Drug Therapy requiring intensive monitoring for toxicity (Heparin, Nitro, In sulin, Cardizem)? @ -no Were any procedures done? @ -no Diagnosis/symptom? @ - Acute, or Chronic, or Acute on Chronic? @ -Acute Uncomplicated (without systemic symptoms) or Complicated (systemic symptoms)? @ -Complicated Side effects of treatment? @ -no Exacerbation, Progression, or Severe Exacerbation? @ -exacerbation Poses a threat to life or bodily function? How? (Chest pain, USA, NM, pneumonia, PE, COPD, DKA, ARF, appy, cholecystitis, CVA, Diverticulitis, Homicidal, Suicidal, threat to staff... and all critical care pts) @ -yes Reevaluation #5: Differential Altered Mental Status: Hypoglycemia, DKA, hypercapnia, ETOH, overdose, CO poisoning, trauma, myxedema coma, HTN encephalopathy, infection, encephalitis, psychosis, intercranial hemorrhage, hepatic encephalopathy, meningitis, CVA, this is not meant to be an all-inclusive list Medical Decision Making - Medical Decision Making 28 male will be admitted for DKA - Lab Data Result diagrams: 04/25/24 20:23 04/25/24 20:23 Lab Results 04/25/24 04/25/24 04/25/24 Range/Units 20:23 20:23 20:23 WBC 38.3 H (3.8-10.6) k/uL RBC 4.45 (4.30-5.90) m/uL Hgb 12.7 L (13.0-17.5) gm/dL Hct 42.2 (39.0-53.0) % MCV 94.9 D (80.0-100.0) fL MCH 28.6 (25.0-35.0) pg MCHC 30.2 L (31.0-37.0) g/dL RDW 15.0 (11.5-15.5) % Plt Count 497 H (150-450) k/uL MPV 7.9 Neutrophils % 91 % Lymphocytes % 6 % Monocytes % 3 % Eosinophils % 0 % Basophils % 0 % Neutrophils # 34.8 H (1.3-7.7) k/uL Lymphocytes # 2.1 (1.0-4.8) k/uL Monocytes # 1.0 (0-1.0) k/uL Eosinophils # 0.1 (0-0.7) k/uL Basophils # 0.1 (0-0.2) k/uL Hypochromasia Marked Poikilocytosis Slight Tear Drop Cells Present Crenated Cell Present PT 10.2 (10.0-12.5) sec INR 0.9 (<1.2) APTT 20.3 L (22.0-30.0) sec VBG pH (7.31-7.41) VBG pCO2 (37-51) mmHg VBG HCO3 (24-28) mmol/L Sodium (137-145) mmol/L Potassium (3.5-5.1) mmol/L Chloride (98-107) mmol/L Carbon Dioxide (22-30) mmol/L Anion Gap mmol/L BUN (9-20) mg/dL Creatinine (0.66-1.25) mg/dL Est GFR (CKD-EPI)AfAm (>60 ml/min/1.73 sqM) Est GFR (CKD-EPI)NonAf (>60 ml/min/1.73 sqM) Glucose (74-99) mg/dL Plasma Lactic Acid Len (0.7-2.0) mmol/L Calcium (8.4-10.2) mg/dL Phosphorus (2.5-4.5) mg/dL Magnesium (1.6-2.3) mg/dL Total Bilirubin (0.2-1.3) mg/dL AST (17-59) U/L ALT (4-49) U/L Alkaline Phosphatase (38-126) U/L Troponin I (0.000-0.034) ng/mL NT-Pro-B Natriuret Pep pg/mL Total Protein (6.3-8.2) g/dL Albumin (3.5-5.0) g/dL Urine Color Colorless Urine Appearance Clear (Clear) Urine pH 5.0 (5.0-8.0) Ur Specific [place] 1.022 (1.001-1.035) Urine Protein Negative (Negative) Urine Glucose (UA) 4+ H (Negative) Urine Ketones 4+ H (Negative) Urine Blood Negative (Negative) Urine Nitrite Negative (Negative) Urine Bilirubin Negative (Negative) Urine Urobilinogen <2.0 (<2.0) mg/dL Ur Leukocyte Esterase Negative (Negative) Acetone, Qual (Negative) 04/25/24 04/25/24 04/25/24 Range/Units 20:23 20:23 20:23 WBC (3.8-10.6) k/uL RBC (4.30-5.90) m/uL Hgb (13.0-17.5) gm/dL Hct (39.0-53.0) % MCV (80.0-100.0) fL MCH (25.0-35.0) pg MCHC (31.0-37.0) g/dL RDW (11.5-15.5) % Plt Count (150-450) k/uL MPV Neutrophils % % Lymphocytes % % Monocytes % % Eosinophils % % Basophils % % Neutrophils # (1.3-7.7) k/uL Lymphocytes # (1.0-4.8) k/uL Monocytes # (0-1.0) k/uL Eosinophils # (0-0.7) k/uL Basophils # (0-0.2) k/uL Hypochromasia Poikilocytosis Tear Drop Cells Crenated Cell PT (10.0-12.5) sec INR (<1.2) APTT (22.0-30.0) sec VBG pH (7.31-7.41) VBG pCO2 (37-51) mmHg VBG HCO3 (24-28) mmol/L Sodium 136 L (137-145) mmol/L Potassium 6.0 H (3.5-5.1) mmol/L Chloride 94 L (98-107) mmol/L Carbon Dioxide <5 L* (22-30) mmol/L Anion Gap mmol/L BUN 30 H (9-20) mg/dL Creatinine 1.20 (0.66-1.25) mg/dL Est GFR (CKD-EPI)AfAm >90 (>60 ml/min/1.73 sqM) Est GFR (CKD-EPI)NonAf 83 (>60 ml/min/1.73 sqM) Glucose 758 H* (74-99) mg/dL Plasma Lactic Acid Len 4.6 H* (0.7-2.0) mmol/L Calcium 9.8 (8.4-10.2) mg/dL Phosphorus 9.0 H* (2.5-4.5) mg/dL Magnesium 2.4 H (1.6-2.3) mg/dL Total Bilirubin 0.7 (0.2-1.3) mg/dL AST 23 (17-59) U/L ALT 18 (4-49) U/L Alkaline Phosphatase 131 H (38-126) U/L Troponin I <0.012 (0.000-0.034) ng/mL NT-Pro-B Natriuret Pep 21 pg/mL Total Protein 7.6 (6.3-8.2) g/dL Albumin 5.1 H (3.5-5.0) g/dL Urine Color Urine Appearance (Clear) Urine pH (5.0-8.0) Ur Specific [place] (1.001-1.035) Urine Protein (Negative) Urine Glucose (UA) (Negative) Urine Ketones (Negative) Urine Blood (Negative) Urine Nitrite (Negative) Urine Bilirubin (Negative) Urine Urobilinogen (<2.0) mg/dL Ur Leukocyte Esterase (Negative) Acetone, Qual Positive (Negative) 04/25/24 Range/Units 20:30 WBC (3.8-10.6) k/uL RBC (4.30-5.90) m/uL Hgb (13.0-17.5) gm/dL Hct (39.0-53.0) % MCV (80.0-100.0) fL MCH (25.0-35.0) pg MCHC (31.0-37.0) g/dL RDW (11.5-15.5) % Plt Count (150-450) k/uL MPV Neutrophils % % Lymphocytes % % Monocytes % % Eosinophils % % Basophils % % Neutrophils # (1.3-7.7) k/uL Lymphocytes # (1.0-4.8) k/uL Monocytes # (0-1.0) k/uL Eosinophils # (0-0.7) k/uL Basophils # (0-0.2) k/uL Hypochromasia Poikilocytosis Tear Drop Cells Crenated Cell PT (10.0-12.5) sec INR (<1.2) APTT (22.0-30.0) sec VBG pH 7.05 L* (7.31-7.41) VBG pCO2 21 L (37-51) mmHg VBG HCO3 6 L* (24-28) mmol/L Sodium (137-145) mmol/L Potassium (3.5-5.1) mmol/L Chloride (98-107) mmol/L Carbon Dioxide (22-30) mmol/L Anion Gap mmol/L BUN (9-20) mg/dL Creatinine (0.66-1.25) mg/dL Est GFR (CKD-EPI)AfAm (>60 ml/min/1.73 sqM) Est GFR (CKD-EPI)NonAf (>60 ml/min/1.73 sqM) Glucose (74-99) mg/dL Plasma Lactic Acid Len (0.7-2.0) mmol/L Calcium (8.4-10.2) mg/dL Phosphorus (2.5-4.5) mg/dL Magnesium (1.6-2.3) mg/dL Total Bilirubin (0.2-1.3) mg/dL AST (17-59) U/L ALT (4-49) U/L Alkaline Phosphatase (38-126) U/L Troponin I (0.000-0.034) ng/mL NT-Pro-B Natriuret Pep pg/mL Total Protein (6.3-8.2) g/dL Albumin (3.5-5.0) g/dL Urine Color Urine Appearance (Clear) Urine pH (5.0-8.0) Ur Specific [place] (1.001-1.035) Urine Protein (Negative) Urine Glucose (UA) (Negative) Urine Ketones (Negative) Urine Blood (Negative) Urine Nitrite (Negative) Urine Bilirubin (Negative) Urine Urobilinogen (<2.0) mg/dL Ur Leukocyte Esterase (Negative) Acetone, Qual (Negative) - EKG Data -: EKG Interpreted by Me (EKG is sinus tach 130 CO 207 QRS 102 QTc 394) Critical Care Time Critical Care Time: Yes Total Critical Care Time: 31 Disposition Clinical Impression: Dehydration, Lactic acidosis, Nausea & vomiting, Diabetic ketoacidosis associated with type 1 diabetes mellitus Condition: Critical Is patient prescribed a controlled substance at d/c from ED?: No Time of Disposition: 21:40
[2024-04-25 20:41] LABS: Basophils # (A) 0.1 k/uL (0-0.2); Basophils % (A) 0 %; Eosinophils # (A) 0.1 k/uL (0-0.7); Eosinophils % (A) 0 %; HCT 42.2 % (39.0-53.0); HGB 12.7 gm/dL (13.0-17.5); Hypochromasia Marked; Lymphocytes # (A) 2.1 k/uL (1.0-4.8); Lymphocytes % (A) 6 %; MCH 28.6 pg (25.0-35.0); MCHC 30.2 g/dL (31.0-37.0); Mean Platelet Volume 7.9; Monocytes % (A) 3 %; Neutrophils # (A) 34.8 k/uL (1.3-7.7); Neutrophils % (A) 91 %; Poikilocytosis Slight; RBC 4.45 m/uL (4.30-5.90); WBC 38.3 k/uL (3.8-10.6)
[2024-04-25] MEDS: ONDANSETRON 4 MG/2 ML VIAL IVP STA (20:45)
[2024-04-25] MEDS: SODIUM CHLORIDE 0.9% 1,000 ML IV STA ×2 (20:45→21:19)
[2024-04-25] MEDS: LORazepam 2 MG/ML INJ IV STA (20:47)
[2024-04-25 20:52] LABS: VBG PH 7.05 (7.31-7.41)
[2024-04-25 20:59] LABS: INR 0.9 (<1.2); Prothrombin Time 10.2 sec (10.0-12.5)
[2024-04-25 21:02] LABS: ALT 18 U/L (4-49); AST 23 U/L (17-59); African American GFR (CKD) >90 (>60 ml/min/1.73 sqM); Albumin 5.1 g/dL (3.5-5.0); Alkaline Phosphatase 131 U/L (38-126); Blood Urea Nitrogen 30 mg/dL (9-20); Calcium 9.8 mg/dL (8.4-10.2); Chloride 94 mmol/L (98-107); Magnesium 2.4 mg/dL (1.6-2.3); Non-African American GFR(CKD) 83 (>60 ml/min/1.73 sqM); Sodium 136 mmol/L (137-145); Total Bilirubin 0.7 mg/dL (0.2-1.3); Total Protein 7.6 g/dL (6.3-8.2)
[2024-04-25 21:08] LABS: NT-Pro-B-Type Natriuretic Pept 21 pg/mL
[2024-04-25 21:12] LABS: Carbon Dioxide <5 mmol/L (22-30); Glucose 758 mg/dL (74-99)
[2024-04-25 21:17] LABS: MCV 94.9 fL (80.0-100.0)
[2024-04-25 21:30] LABS: Partial Thromboplastin Time 20.3 sec (22.0-30.0)
[2024-04-25] MEDS: MORPHINE SULFATE 4 MG/ML SYRINGE IV STA (21:31)
[2024-04-25 21:37] LABS: Appearance,Urine Clear (Clear); Bilirubin,Urine Negative (Negative); Blood,Urine Negative (Negative); Color,Urine Colorless; Glucose,Urine (UA) 4+ (Negative); Leukocyte Esterase,Urine Negative (Negative); Nitrite,Urine Negative (Negative); Protein,Urine Negative (Negative); Specific Gravity,Urine 1.022 (1.001-1.035); Urobilinogen,Urine <2.0 mg/dL (<2.0)
[2024-04-25] MEDS ORDERED: Potassium Replacement Protocol 1 EACH MISC MISCELLANE PRN (21:39)
[2024-04-25] MEDS ORDERED: DEXTROSE 50% SYRINGE 50 ML IVP PRN ×2 (21:39)
[2024-04-25] MEDS ORDERED: Magnesium Replacement Protocol 1 EACH MISC MISCELLANE PRN (21:39)
[2024-04-25 21:45] LABS: Ketones,Urine 4+ (Negative)
[2024-04-25] MEDS: SODIUM CHLORIDE 0.9% 1,000 ML IV ONE (22:08)
[2024-04-25] MEDS: SODIUM CHLORIDE 0.9% 1,000 ML IV SCH (22:09)
[2024-04-25] MEDS: INSULIN REGULAR 100 UNIT in SODIUM CHLORIDE 0.9% 100 ML IV SCH (22:15)
[2024-04-25] MEDS: INSULIN REGULAR BOLUS (FROM DRIP BAG) IV ONE (22:16)
[2024-04-25 22:36] LABS: Crenated RBC Present; Tear Drop Cells Present
[2024-04-25 22:41] LABS: Platelet Count 497 k/uL (150-450)
[2024-04-25 23:25] LABS: Glucose,Whole Blood 592 mg/dL (70-110)
[2024-04-26 00:13] LABS: Glucose,Whole Blood 394 mg/dL (70-110)
[2024-04-26 00:25] LABS: African American GFR (CKD) >90 (>60 ml/min/1.73 sqM); Blood Urea Nitrogen 30 mg/dL (9-20); Chloride 110 mmol/L (98-107); Non-African American GFR(CKD) 85 (>60 ml/min/1.73 sqM); Sodium 142 mmol/L (137-145)
[2024-04-26 00:50] LABS: Carbon Dioxide <5 mmol/L (22-30); Glucose 531 mg/dL (74-99)
[2024-04-26 01:26] LABS: Glucose,Whole Blood 293 mg/dL (70-110)
[2024-04-26] MEDS: D5-0.45% NACL WITH KCL 20MEQ/L 1,000 ML IV SCH (02:03)
[2024-04-26 02:19] LABS: Glucose,Whole Blood 243 mg/dL (70-110)
[2024-04-26 03:10] LABS: Glucose,Whole Blood 231 mg/dL (70-110)
[2024-04-26 04:24] LABS: Glucose,Whole Blood 194 mg/dL (70-110)
[2024-04-26 05:20] LABS: Glucose,Whole Blood 192 mg/dL (70-110)
[2024-04-26 05:28] LABS: African American GFR (CKD) >90 (>60 ml/min/1.73 sqM); Anion Gap 12 mmol/L; Blood Urea Nitrogen 27 mg/dL (9-20); Carbon Dioxide 15 mmol/L (22-30); Chloride 115 mmol/L (98-107); Glucose 193 mg/dL (74-99); Non-African American GFR(CKD) >90 (>60 ml/min/1.73 sqM); Phosphorus 1.8 mg/dL (2.5-4.5); Potassium 4.3 mmol/L (3.5-5.1); Sodium 142 mmol/L (137-145)
[2024-04-26 06:14] LABS: Glucose,Whole Blood 158 mg/dL (70-110)
[2024-04-26 07:41] LABS: Glucose,Whole Blood 141 mg/dL (70-110)
[2024-04-26 08:57] LABS: Glucose,Whole Blood 121 mg/dL (70-110)
[2024-04-26 09:07] LABS: HCT 34.4 % (39.0-53.0); HGB 11.1 gm/dL (13.0-17.5); Hypochromasia Slight; MCH 28.1 pg (25.0-35.0); MCHC 32.1 g/dL (31.0-37.0); Mean Platelet Volume 6.3; Platelet Count 435 k/uL (150-450); RBC 3.94 m/uL (4.30-5.90); RDW 15.2 % (11.5-15.5); WBC 35.9 k/uL (3.8-10.6)
[2024-04-26 09:21] LABS: ALT 14 U/L (4-49); AST 16 U/L (17-59); African American GFR (CKD) >90 (>60 ml/min/1.73 sqM); Alkaline Phosphatase 92 U/L (38-126); Anion Gap 9 mmol/L; Blood Urea Nitrogen 27 mg/dL (9-20); Calcium 8.8 mg/dL (8.4-10.2); Carbon Dioxide 21 mmol/L (22-30); Chloride 113 mmol/L (98-107); Glucose 120 mg/dL (74-99); Non-African American GFR(CKD) >90 (>60 ml/min/1.73 sqM); Potassium 4.5 mmol/L (3.5-5.1); Sodium 143 mmol/L (137-145); Total Bilirubin 0.4 mg/dL (0.2-1.3); Total Protein 6.5 g/dL (6.3-8.2)
[2024-04-26 09:44] LABS: MCV 87.4 fL (80.0-100.0)
[2024-04-26 09:51] LABS: VBG PH 7.45 (7.31-7.41)
[2024-04-26 10:24] LABS: Lymphocytes # (M) 3.95 k/uL (1.0-4.8); Metamyelocytes # (M) 0.36 k/uL (0); Metamyelocytes % 1 %; Monocytes # (M) 2.15 k/uL (0-1.0); Neutrophils % (M) 83 %; Nucleated Red Blood Cells 0 /100 WBC (0-0); Total Cells Counted 200
[2024-04-26 10:42] LABS: Glucose,Whole Blood 132 mg/dL (70-110)
--- NOTE | 2024-04-26 11:34 | HP ---
HISTORY AND PHYSICAL CHIEF COMPLAINT: DKA. HISTORY OF PRESENT ILLNESS: This is another many, many admissions for this noncompliant, depressed, 28-year-old, type 1 insulin-dependent diabetic. He is back in with elevated blood sugar and metabolic acidosis. REVIEW OF SYSTEMS: Other than being lethargic and somewhat nauseated, it is normal. Past medical history, family history and personal and social histories are all unchanged. PHYSICAL EXAMINATION: VITAL SIGNS: Normal except for tachycardia of around 110 beats per minute. HEAD, EARS, EYES, NOSE, MOUTH, AND THROAT: Normal. CHEST: Clear. CARDIAC: Normal. ABDOMEN: Soft and nontender. EXTREMITIES: Normal. NEUROLOGICAL: Intact. DIAGNOSES: He is admitted to the hospital with diagnoses of: 1. Diabetic ketoacidosis. 2. Noncompliant patient. 3. Type 1 insulin-dependent diabetes mellitus. 4. Gastroparesis. 5. Peripheral neuropathy. 6. Major depression. PLAN: 1. Bedrest. 2. IV fluids. 3. DKA protocol. MMODL / IJN: [id number] /
[2024-04-26 11:57] LABS: Glucose,Whole Blood 143 mg/dL (70-110)
[2024-04-26] MEDS: INSULIN ASPART (NovoLOG) 100 UNIT/ML VIAL SQ SCH ×2 (12:02)
--- NOTE | 2024-04-26 12:19 | PN ---
PROGRESS NOTE DATE OF SERVICE: 04/26/2024 CHIEF COMPLAINT: DKA. HISTORY OF PRESENT ILLNESS: This gentleman's blood sugars are coming down. Gap is closed. PHYSICAL EXAMINATION: CHEST: Clear. CARDIAC: Normal. ABDOMEN: Soft, nontender. IMPRESSION: Diabetic ketoacidosis. PLAN: Transition to basal bolus program and continue with IV fluids. MMODL / IJN: [id number] /
[2024-04-26 16:48] LABS: Glucose,Whole Blood 445 mg/dL (70-110)
[2024-04-26] MEDS: INSULIN DETEMIR (LEVEMIR) 100 UNIT/ML SYR SQ SCH (17:39)
[2024-04-26 20:47] LABS: ALT 15 U/L (4-49); AST 17 U/L (17-59); African American GFR (CKD) >90 (>60 ml/min/1.73 sqM); Albumin 4.2 g/dL (3.5-5.0); Albumin/Globulin Ratio 1.7; Alkaline Phosphatase 93 U/L (38-126); Anion Gap 22 mmol/L; Blood Urea Nitrogen 20 mg/dL (9-20); Calcium 9.1 mg/dL (8.4-10.2); Carbon Dioxide 11 mmol/L (22-30); Chloride 106 mmol/L (98-107); Globulin 2.5 g/dL; Glucose 244 mg/dL (74-99); Non-African American GFR(CKD) >90 (>60 ml/min/1.73 sqM); Phosphorus 2.8 mg/dL (2.5-4.5); Potassium 4.5 mmol/L (3.5-5.1); Sodium 139 mmol/L (137-145); Total Bilirubin 0.5 mg/dL (0.2-1.3); Total Protein 6.7 g/dL (6.3-8.2)
[2024-04-26 21:12] LABS: Glucose,Whole Blood 184 mg/dL (70-110)
[2024-04-26] MEDS ORDERED: ONDANSETRON 4 MG/2 ML VIAL IVP PRN (21:28)
[2024-04-27 02:47] LABS: Glucose,Whole Blood 60 mg/dL (70-110)
[2024-04-27 03:34] LABS: Glucose,Whole Blood 71 mg/dL (70-110)
[2024-04-27 04:26] LABS: Glucose,Whole Blood 101 mg/dL (70-110)
[2024-04-27] MEDS ORDERED: INSULIN DETEMIR (LEVEMIR) 100 UNIT/ML SYR SQ SCH (07:00)
[2024-04-27 07:34] LABS: Glucose,Whole Blood 85 mg/dL (70-110)
[2024-04-27 11:52] LABS: Basophils # (A) 0.1 k/uL (0-0.2); Basophils % (A) 0 %; Eosinophils # (A) 0.3 k/uL (0-0.7); Eosinophils % (A) 1 %; HCT 33.6 % (39.0-53.0); HGB 10.9 gm/dL (13.0-17.5); Lymphocytes # (A) 1.9 k/uL (1.0-4.8); Lymphocytes % (A) 9 %; MCH 28.1 pg (25.0-35.0); MCHC 32.4 g/dL (31.0-37.0); MCV 86.5 fL (80.0-100.0); Mean Platelet Volume 7.9; Monocytes # (A) 0.9 k/uL (0-1.0); Monocytes % (A) 4 %; Neutrophils # (A) 19.2 k/uL (1.3-7.7); Neutrophils % (A) 85 %; Platelet Count 401 k/uL (150-450); RBC 3.89 m/uL (4.30-5.90); RDW 15.4 % (11.5-15.5); WBC 22.4 k/uL (3.8-10.6)
[2024-04-27 11:58] LABS: ALT 12 U/L (4-49); AST 18 U/L (17-59); African American GFR (CKD) >90 (>60 ml/min/1.73 sqM); Albumin 3.7 g/dL (3.5-5.0); Albumin/Globulin Ratio 1.5; Alkaline Phosphatase 99 U/L (38-126); Anion Gap 10 mmol/L; Blood Urea Nitrogen 16 mg/dL (9-20); Calcium 8.8 mg/dL (8.4-10.2); Carbon Dioxide 22 mmol/L (22-30); Chloride 100 mmol/L (98-107); Globulin 2.5 g/dL; Glucose 79 mg/dL (74-99); Non-African American GFR(CKD) >90 (>60 ml/min/1.73 sqM); Potassium 4.3 mmol/L (3.5-5.1); Sodium 132 mmol/L (137-145); Total Bilirubin 0.5 mg/dL (0.2-1.3); Total Protein 6.2 g/dL (6.3-8.2)
[2024-04-27 12:13] LABS: Glucose,Whole Blood 92 mg/dL (70-110)
[2024-04-27 16:24] VITALS: BMI 23.7
[2024-04-27 17:52] LABS: Glucose,Whole Blood 234 mg/dL (70-110)
[2024-04-27 21:21] LABS: Glucose,Whole Blood 251 mg/dL (70-110)
[2024-04-28 01:00] VITALS: RESP 16
[2024-04-28 02:42] LABS: Glucose,Whole Blood 358 mg/dL (70-110)
[2024-04-28 07:24] LABS: Glucose,Whole Blood 375 mg/dL (70-110)
[2024-04-28 12:06] LABS: Glucose,Whole Blood 150 mg/dL (70-110)
[2024-04-28 12:48] VITALS: BP 117/82; PULSE 96; TEMP 97.9
--- NOTE | 2024-04-29 07:34 | DS ---
DISCHARGE SUMMARY CHIEF COMPLAINT: DKA. HISTORY OF PRESENT ILLNESS AND PHYSICAL EXAMINATION: Details of this man's history and physical can be found in the initial workup. LABORATORY STUDIES: While he was in the hospital, he had laboratory studies, details of which can be found in the laboratory section of his chart. COURSE IN THE HOSPITAL: After admission, he was placed on bedrest, started on intravenous fluids and DKA protocol. As usual, his nausea cleared once his gap closed and blood sugars were brought down. He was doing well, eating. His blood sugars were within range, and it was felt that he could go home on the . He will be followed up in the office. FINAL DIAGNOSES: 1. Diabetic ketoacidosis. 2. Noncompliant type 1 juvenile onset diabetic. 3. Depression. OPERATIONS: None. CONSULTATIONS: Intensive Medicine. He is improved. MMODL / IJN: [id number] /
--- NOTE | 2024-04-29 20:10 | PN ---
PROGRESS NOTE DATE OF SERVICE: 04/27/2024 CHIEF COMPLAINT: DKA. HISTORY OF PRESENT ILLNESS: This gentleman is doing well. Sugars are coming down. He is still somewhat nauseated. PHYSICAL EXAMINATION: CHEST: Clear. CARDIAC: Exam is normal. IMPRESSION: 1. Diabetic ketoacidosis. 2. Dehydration. 3. Metabolic acidosis. 4. Depression. PLAN: Continue with current management with IV fluids and probably discharge tomorrow. MMODL / IJN: [id number] /
== END 2024-04-28 17:07 | disposition home or self-care (01) | DRG 420 ==
LOC: EC 20:01 → 2SICU 21:39 → 5NMEDONC 04-26 11:00
PROVIDERS: ADMIT Family Medicine; ATTEND Family Medicine
DX: E10.10 Type 1 diabetes mellitus with ketoacidosis without coma (principal); E10.42 Type 1 diabetes mellitus with diabetic polyneuropathy; E10.43 Type 1 diabetes mellitus with diabetic autonomic (poly)neuropathy; F32.9 Major depressive disorder, single episode, unspecified; E86.0 Dehydration; Z79.4 Long term (current) use of insulin; K31.84 Gastroparesis; F17.290 Nicotine dependence, other tobacco product, uncomplicated; Z91.199 Patient's noncompliance with other medical treatment and regimen due to unspecified reason; Z79.899 Other long term (current) drug therapy
CPT/HCPCS: 36415; 80051; 80053; 81003; 82009; 82565; 82803; 82947; 83036; 83605; 83735; 83880; 84100; 84484; 84520; 85025; 85610; 85730; 93005; 96361; 96374; 96375; 99291

== ENCOUNTER 2024-06-22 08:57 | Inpatient (IN) | payer OTHER ==
[2024-06-22] MEDS: METOCLOPRAMIDE 5 MG/ML 2 ML VIAL IVP STA (09:12)
[2024-06-22] MEDS: SODIUM CHLORIDE 0.9% 2,000 ML IV STA (09:12)
[2024-06-22 09:16] LABS: VBG PH 7.4 (7.31-7.41)
[2024-06-22 09:18] LABS: Basophils % (A) 0 %; Eosinophils # (A) 0.1 k/uL (0-0.7); Eosinophils % (A) 1 %; HCT 39.8 % (39.0-53.0); HGB 12.9 gm/dL (13.0-17.5); Lymphocytes # (A) 2.2 k/uL (1.0-4.8); Lymphocytes % (A) 18 %; MCH 27.5 pg (25.0-35.0); MCHC 32.4 g/dL (31.0-37.0); MCV 84.9 fL (80.0-100.0); Mean Platelet Volume 7.1; Monocytes # (A) 0.5 k/uL (0-1.0); Monocytes % (A) 4 %; Neutrophils # (A) 9.5 k/uL (1.3-7.7); Neutrophils % (A) 76 %; Platelet Count 469 k/uL (150-450); RBC 4.69 m/uL (4.30-5.90); RDW 15.8 % (11.5-15.5); WBC 12.5 k/uL (3.8-10.6)
[2024-06-22 09:33] LABS: ALT 17 U/L (4-49); AST 20 U/L (17-59); African American GFR (CKD) >90 (>60 ml/min/1.73 sqM); Albumin 4.6 g/dL (3.5-5.0); Alkaline Phosphatase 98 U/L (38-126); Anion Gap 24 mmol/L; Blood Urea Nitrogen 18 mg/dL (9-20); Calcium 9.1 mg/dL (8.4-10.2); Carbon Dioxide 15 mmol/L (22-30); Chloride 98 mmol/L (98-107); Glucose 375 mg/dL (74-99); Lipase 30 U/L (23-300); Non-African American GFR(CKD) >90 (>60 ml/min/1.73 sqM); Potassium 3.7 mmol/L (3.5-5.1); Sodium 137 mmol/L (137-145); Total Bilirubin 0.9 mg/dL (0.2-1.3)
--- NOTE | 2024-06-22 11:05 | ED ---
Abdominal Pain HPI - General Chief Complaint: Abdominal Pain Stated Complaint: hyperglycemia Time Seen by Provider: 06/22/24 08:59 Source: patient, EMS, RN notes reviewed Mode of arrival: EMS Limitations: no limitations - History of Present Illness Initial Comments: 28-year-old male presents emerged part via EMS complaint nausea vomiting hyperglycemia. Patient well-known emergency department had multiple admissions for DKA. Patient states started overnight took some long acting insulin this morning. Patient denies fevers chills patient did receive Zofran which has not helped his nausea no chest pain or shortness of breath. - Related Data Home Medications Medication Instructions Recorded Confirmed Gabapentin 600 mg PO TID 06/20/24 06/22/24 INSULIN LISPRO (HumaLOG) [humaLOG] See Protocol SQ AC-TID 06/20/24 06/22/24 INSULIN LISPRO (humaLOG) [humaLOG] 7 units SQ AC-TID 06/20/24 06/22/24 Insulin Glargine (Lantus) [Lantus 25 unit SQ DAILY 06/20/24 06/22/24 Vial] Allergies Allergy/AdvReac Type Severity Reaction Status Date / Time No Known Allergies Allergy Verified 04/26/24 11:07 Review of Systems ROS Statement: Those systems with pertinent positive or pertinent negative responses have been documented in the HPI. ROS Other: All systems not noted in ROS Statement are negative. Past Medical History Past Medical History: Asthma, Diabetes Mellitus, Neurologic Disorder, Skin Disorder Additional Past Medical History / Comment(s): IDDM type I, neuropathy bilateral feet, DKA, eczema,gastritis History of Any Multi-Drug Resistant Organisms: None Reported Past Surgical History: Adenoidectomy Additional Past Surgical History / Comment(s): gastritis Past Anesthesia/Blood Transfusion Reactions: No Reported Reaction Past Psychological History: Anxiety, Depression Smoking Status: Current every day smoker, Vaper Past Alcohol Use History: None Reported Past Drug Use History: Marijuana - Past Family History Mother Family Medical History: CVA/TIA Additional Family Medical History / Comment(s): TIA Father Family Medical History: Hyperlipidemia, Hypertension Additional Family Medical History / Comment(s): . General Exam Limitations: no limitations General appearance: alert, in no apparent distress Head exam: Present: atraumatic, normocephalic, normal inspection Respiratory exam: Present: normal lung sounds bilaterally. Absent: respiratory distress, wheezes, rales, rhonchi, stridor Cardiovascular Exam: Present: normal rhythm, tachycardia, normal heart sounds. Absent: systolic murmur, diastolic murmur, rubs, gallop, clicks GI/Abdominal exam: Present: soft, tenderness, normal bowel sounds. Absent: distended, guarding, rebound, rigid Course Vital Signs 06/22/24 06/22/24 08:58 10:24 Temperature 97.5 F L Pulse Rate 94 105 H Respiratory 20 18 Rate Blood Pressure 154/95 119/79 O2 Sat by Pulse 100 98 Oximetry Medical Decision Making - Medical Decision Making Was pt. sent in by a medical professional or institution (, PA, PRODUCTION CONTROL ANALYST, urgent care, hospital, or fpc...) When possible be specific @ -No Did you speak to anyone other than the patient for history (EMS, parent, family, police, friend...)? What history was obtained from this source @ -No Did you review nursing and triage notes (agree or disagree)? Why? @ -I reviewed and agree with nursing and triage notes Were old charts reviewed (outside hosp., previous admission, EMS record, old EKG, old radiological studies, urgent care reports/EKG's, fpc records)? Report findings @ -No old charts were reviewed Differential Diagnosis (chest pain, altered mental status, abdominal pain women, abdominal pain men, vaginal bleeding, weakness, fever, dyspnea, syncope, headache, dizziness, GI bleed, back pain, seizure, CVA, palpatations, mental health, musculoskeletal)? @ -Differential Abdominal Pain Men: Appendicitis, cholecystitis, diverticulosis, ischemic bowel, pancreatitis, hepatitis, UTI, gastroenteritis, AAA, incarcerated hernia, bowel obstruction, constipation, inflammatory bowel, hepatitis, peptic ulcer disease, splenic infarction, perforated viscus, testicular torsion, this is not meant to be an all-inclusive list EKG interpreted by me (3pts min.). @ -As above X-rays interpreted by me (1pt min.). @ -None done CT interpreted by me (1pt min.). @ -None done U/S interpreted by me (1pt. min.). @ -None done What testing was considered but not performed or refused? (CT, X-rays, U/S, labs)? Why? @ -None What meds were considered but not given or refused? Why? @ -None Did you discuss the management of the patient with other professionals (professionals i.e. DrLinda, PA, PRODUCTION CONTROL ANALYST, lab, RT, psych nurse, social media specialist, machine records units supervisor, teacher, chief operations officer, shoe caser)? Give summary @ -Dr. Valenzuela for admission Was smoking cessation discussed for >3mins.? @ -No Was critical care preformed (if so, how long)? @ -35 minutes Were there social determinants of health that impacted care today? How? (Homelessness, low income, unemployed, alcoholism, drug addiction, transportation, low edu. Level, literacy, decrease access to med. care, [facility], rehab)? @ -No Was there de-escalation of care discussed even if they declined (Discuss DNR or withdrawal of care, Hospice)? DNR status @ -No What co-morbidities impacted this encounter? (DM, HTN, Smoking, COPD, CAD, Cancer, CVA, ARF, Chemo, Hep., AIDS, mental health diagnosis, sleep apnea, morbid obesity)? @ -Diabetes Was patient admitted / discharged? Hospital course, mention meds given and route, prescriptions, significant lab abnormalities, going to OR and other pertinent info. @ -Admitted patient found to be in DKA. Patient has a bicarb of 17, anion gap 24 patient does have hyperglycemia. Patient is given 2 L of fluid started on maintenance fluids, insulin drip patient will be closely monitored in stepdown. Undiagnosed new problem with uncertain prognosis? @ -No Drug Therapy requiring intensive monitoring for toxicity (Heparin, Nitro, Insulin, Cardizem)? @ -No Were any procedures done? @ -No Diagnosis/symptom? @ -DKA Acute, or Chronic, or Acute on Chronic? @ -Acute Uncomplicated (without systemic symptoms) or Complicated (systemic symptoms)? @ -Complicated Side effects of treatment? @ -No Exacerbation, Progression, or Severe Exacerbation? @ -No Poses a threat to life or bodily function? How? (Chest pain, USA, LA, pneumonia, PE, COPD, DKA, ARF, appy, cholecystitis, CVA, Diverticulitis, Homicidal, Suicidal, threat to staff... and all critical care pts) @ -Yes DKA, causing endorgan failure, - Lab Data Result diagrams: 06/22/24 09:07 06/22/24 09:07 Lab Results 06/22/24 06/22/24 06/22/24 Range/Units 09:07 09:07 09:07 WBC 12.5 H (3.8-10.6) k/uL RBC 4.69 (4.30-5.90) m/uL Hgb 12.9 L (13.0-17.5) gm/dL Hct 39.8 (39.0-53.0) % MCV 84.9 (80.0-100.0) fL MCH 27.5 (25.0-35.0) pg MCHC 32.4 (31.0-37.0) g/dL RDW 15.8 H (11.5-15.5) % Plt Count 469 H (150-450) k/uL MPV 7.1 Neutrophils % 76 % Lymphocytes % 18 % Monocytes % 4 % Eosinophils % 1 % Basophils % 0 % Neutrophils # 9.5 H (1.3-7.7) k/uL Lymphocytes # 2.2 (1.0-4.8) k/uL Monocytes # 0.5 (0-1.0) k/uL Eosinophils # 0.1 (0-0.7) k/uL Basophils # 0.0 (0-0.2) k/uL VBG pH (7.31-7.41) VBG pCO2 (37-51) mmHg VBG HCO3 (24-28) mmol/L Sodium 137 (137-145) mmol/L Potassium 3.7 (3.5-5.1) mmol/L Chloride 98 (98-107) mmol/L Carbon Dioxide 15 L (22-30) mmol/L Anion Gap 24 mmol/L BUN 18 (9-20) mg/dL Creatinine 0.79 (0.66-1.25) mg/dL Est GFR (CKD-EPI)AfAm >90 (>60 ml/min/1.73 sqM) Est GFR (CKD-EPI)NonAf >90 (>60 ml/min/1.73 sqM) Glucose 375 H (74-99) mg/dL Plasma Lactic Acid Len 2.7 H* (0.7-2.0) mmol/L Calcium 9.1 (8.4-10.2) mg/dL Magnesium 2.0 (1.6-2.3) mg/dL Total Bilirubin 0.9 (0.2-1.3) mg/dL AST 20 (17-59) U/L ALT 17 (4-49) U/L Alkaline Phosphatase 98 (38-126) U/L Total Protein 7.0 (6.3-8.2) g/dL Albumin 4.6 (3.5-5.0) g/dL Lipase 30 (23-300) U/L Acetone, Qual Positive (Negative) 06/22/24 Range/Units 09:07 WBC (3.8-10.6) k/uL RBC (4.30-5.90) m/uL Hgb (13.0-17.5) gm/dL Hct (39.0-53.0) % MCV (80.0-100.0) fL MCH (25.0-35.0) pg MCHC (31.0-37.0) g/dL RDW (11.5-15.5) % Plt Count (150-450) k/uL MPV Neutrophils % % Lymphocytes % % Monocytes % % Eosinophils % % Basophils % % Neutrophils # (1.3-7.7) k/uL Lymphocytes # (1.0-4.8) k/uL Monocytes # (0-1.0) k/uL Eosinophils # (0-0.7) k/uL Basophils # (0-0.2) k/uL VBG pH 7.40 (7.31-7.41) VBG pCO2 28 L (37-51) mmHg VBG HCO3 17 L (24-28) mmol/L Sodium (137-145) mmol/L Potassium (3.5-5.1) mmol/L Chloride (98-107) mmol/L Carbon Dioxide (22-30) mmol/L Anion Gap mmol/L BUN (9-20) mg/dL Creatinine (0.66-1.25) mg/dL Est GFR (CKD-EPI)AfAm (>60 ml/min/1.73 sqM) Est GFR (CKD-EPI)NonAf (>60 ml/min/1.73 sqM) Glucose (74-99) mg/dL Plasma Lactic Acid Len (0.7-2.0) mmol/L Calcium (8.4-10.2) mg/dL Magnesium (1.6-2.3) mg/dL Total Bilirubin (0.2-1.3) mg/dL AST (17-59) U/L ALT (4-49) U/L Alkaline Phosphatase (38-126) U/L Total Protein (6.3-8.2) g/dL Albumin (3.5-5.0) g/dL Lipase (23-300) U/L Acetone, Qual (Negative) - EKG Data -: EKG Interpreted by Me EKG Comments: EKG performed at 9: 14 sinus tachycardia rate of 100 AR 140 QRS 100 QT/QTc 376/433 Critical Care Time Critical Care Time: Yes Total Critical Care Time: 35 Disposition Clinical Impression: DKA (diabetic ketoacidoses), Vomiting Disposition: ADMITTED IP TO THIS HOSP Condition: Fair Referrals: Brown Valenzuela MD [Primary Care Provider] - 1-2 days Time of Disposition: 11:05
[2024-06-22] MEDS: SODIUM CHLORIDE 0.9% 1,000 ML IV SCH (11:12)
[2024-06-22 11:15] LABS: Glucose,Whole Blood 315 mg/dL (70-110)
[2024-06-22] MEDS: INSULIN REGULAR 100 UNIT in SODIUM CHLORIDE 0.9% 100 ML IV SCH (11:38)
[2024-06-22] MEDS: INSULIN REGULAR BOLUS (FROM DRIP BAG) IV ONE (11:42)
[2024-06-22 12:12] LABS: African American GFR (CKD) >90 (>60 ml/min/1.73 sqM); Anion Gap 20 mmol/L; Blood Urea Nitrogen 18 mg/dL (9-20); Carbon Dioxide 16 mmol/L (22-30); Chloride 101 mmol/L (98-107); Glucose 312 mg/dL (74-99); Non-African American GFR(CKD) >90 (>60 ml/min/1.73 sqM); Phosphorus 3.2 mg/dL (2.5-4.5); Sodium 137 mmol/L (137-145)
[2024-06-22 12:16] LABS: Glucose,Whole Blood 241 mg/dL (70-110)
[2024-06-22] MEDS: D5-0.45% NACL WITH KCL 20MEQ/L 1,000 ML IV SCH (12:29)
[2024-06-22 13:06] LABS: Glucose,Whole Blood 199 mg/dL (70-110)
[2024-06-22 14:02] LABS: Glucose,Whole Blood 232 mg/dL (70-110)
[2024-06-22 16:38] LABS: Glucose,Whole Blood 112 mg/dL (70-110)
[2024-06-22 16:52] LABS: Appearance,Urine Clear (Clear); Bilirubin,Urine Negative (Negative); Blood,Urine Negative (Negative); Color,Urine Colorless; Glucose,Urine (UA) 4+ (Negative); Leukocyte Esterase,Urine Negative (Negative); Nitrite,Urine Negative (Negative); Protein,Urine Negative (Negative); Urobilinogen,Urine <2.0 mg/dL (<2.0)
[2024-06-22 17:04] LABS: African American GFR (CKD) >90 (>60 ml/min/1.73 sqM); Anion Gap 11 mmol/L; Blood Urea Nitrogen 15 mg/dL (9-20); Carbon Dioxide 23 mmol/L (22-30); Chloride 100 mmol/L (98-107); Glucose 133 mg/dL (74-99); Non-African American GFR(CKD) >90 (>60 ml/min/1.73 sqM); Potassium 3.8 mmol/L (3.5-5.1); Sodium 134 mmol/L (137-145)
[2024-06-22 17:08] LABS: Glucose,Whole Blood 120 mg/dL (70-110)
[2024-06-22 17:16] LABS: Ketones,Urine 4+ (Negative)
[2024-06-22] MEDS ORDERED: INSULIN ASPART (NovoLOG) 100 UNIT/ML VIAL SQ SCH (17:30)
[2024-06-22 18:08] LABS: Glucose,Whole Blood 118 mg/dL (70-110)
[2024-06-22 19:21] LABS: Glucose,Whole Blood 240 mg/dL (70-110)
[2024-06-22] MEDS: INSULIN ASPART (NovoLOG) 100 UNIT/ML VIAL SQ SCH (20:19)
[2024-06-22] MEDS: ONDANSETRON 4 MG/2 ML VIAL IVP STA (21:51)
[2024-06-22 23:02] LABS: Glucose,Whole Blood 213 mg/dL (70-110)
[2024-06-22] MEDS: ONDANSETRON 4 MG/2 ML VIAL IVP PRN (23:56)
--- NOTE | 2024-06-23 03:33 | HP ---
HISTORY AND PHYSICAL CHIEF COMPLAINT: Diabetic ketoacidosis. HISTORY OF PRESENT ILLNESS: This is another admission for this 28-year-old noncompliant, depressed, type 1 insulin- dependent diabetic. He was just in the hospital again for diabetic ketoacidosis, signed out Friday and now has come back in. In the emergency room, his anion gap was 24 and his bicarb was 15. REVIEW OF SYSTEMS: Otherwise unremarkable. He is not vomiting. He does feel nauseated. Past medical history, family history, personal and social histories are all otherwise unremarkable and noncontributory. PHYSICAL EXAMINATION: VITAL SIGNS: Blood pressure 120/72, pulse is 116 and regular, respirations are 36, he is afebrile. GENERAL: Appeared to be lethargic, slightly pale and dehydrated. HEAD, EARS, EYES, NOSE, MOUTH, AND THROAT: Normal. CHEST: Clear. CARDIAC: Normal except for tachycardia. ABDOMEN: Flat, soft, and nontender. Bowel sounds are heard. EXTREMITIES: Normal. NEUROLOGICAL: He is intact. DIAGNOSES: He is admitted to the hospital with diagnoses of, 1. Diabetic ketoacidosis. 2. Noncompliant patient. 3. Type 1 insulin-dependent diabetes mellitus. 4. Depression. PLAN: 1. Bedrest. 2. IV fluids. 3. DKA protocol. MMODL / IJN: [id number] /
[2024-06-23 05:58] LABS: Glucose,Whole Blood 331 mg/dL (70-110)
[2024-06-23] MEDS: INSULIN DETEMIR (LEVEMIR) 100 UNIT/ML SYR SQ SCH (06:06)
[2024-06-23 11:09] LABS: Glucose,Whole Blood 106 mg/dL (70-110)
[2024-06-23 16:22] LABS: Glucose,Whole Blood 217 mg/dL (70-110)
[2024-06-23 19:51] LABS: Glucose,Whole Blood 252 mg/dL (70-110)
[2024-06-24 06:12] LABS: Glucose,Whole Blood 331 mg/dL (70-110)
--- NOTE | 2024-06-24 06:36 | PN ---
PROGRESS NOTE DATE OF SERVICE: 06/23/2024 CHIEF COMPLAINT: DKA. HISTORY OF PRESENT ILLNESS: This gentleman is having some trouble with nausea and vomiting. He has had no hematemesis. He has had no abdominal pain. Sugars are better. PHYSICAL EXAMINATION: CHEST: Clear. CARDIAC: Normal. ABDOMEN: Flat, soft, nontender. IMPRESSION: 1. Diabetic ketoacidosis. 2. Nausea. 3. Dehydration. 4. Depression. 5. Noncompliant patient. PLAN: Continue with IV fluids and antiemetics. MMODL / IJN: [id number] /
[2024-06-24 11:22] VITALS: BP 120/83; PULSE 106; RESP 16; TEMP 98
--- NOTE | 2024-06-24 20:03 | DS ---
DISCHARGE SUMMARY CHIEF COMPLAINT: Diabetic ketoacidosis. HISTORY OF PRESENT ILLNESS AND PHYSICAL EXAMINATION: Details of this man's history and physical can be found in the initial workup. LABORATORY STUDIES: While he was in the hospital, he had laboratory studies, details of which can be found in the laboratory section of his chart. COURSE IN THE HOSPITAL: After admission, he was placed on bedrest, started on intravenous fluids and placed on DKA protocol. He had some nausea and vomiting. However, his sugar came down. His gap closed and the vomiting stopped and he was doing well. It was felt that he could be discharged to outpatient followup. FINAL DIAGNOSES: 1. Diabetic ketoacidosis. 2. Dehydration. 3. Uncontrolled type 1 insulin-dependent diabetes mellitus. 4. Noncompliant patient. 5. History of diabetic neuropathy. 6. History of gastroparesis. OPERATIONS: None. CONSULTATION: None. GRACE / ALDEN: [id number] /
== END 2024-06-24 11:13 | disposition home or self-care (01) | DRG 420 ==
LOC: EC 08:57 → 3SCARD 11:33
PROVIDERS: ADMIT Family Medicine; ATTEND Family Medicine
DX: E10.10 Type 1 diabetes mellitus with ketoacidosis without coma (principal); E10.43 Type 1 diabetes mellitus with diabetic autonomic (poly)neuropathy; E86.0 Dehydration; F17.290 Nicotine dependence, other tobacco product, uncomplicated; F32.A Depression, unspecified; T38.3X6A Underdosing of insulin and oral hypoglycemic [antidiabetic] drugs, initial encounter; Z91.128 Patient's intentional underdosing of medication regimen for other reason; J45.909 Unspecified asthma, uncomplicated; K31.84 Gastroparesis; Z79.4 Long term (current) use of insulin; Z28.310 Unvaccinated for COVID-19; Z79.899 Other long term (current) drug therapy
CPT/HCPCS: 36415; 80051; 80053; 81003; 82009; 82565; 82803; 82947; 83605; 83690; 83735; 84100; 84520; 85025; 93005; 96361; 96365; 96366; 96375; 99291

== ENCOUNTER 2024-07-16 08:20 | Inpatient (IN) | payer OTHER ==
[2024-07-16 08:40] LABS: Glucose,Whole Blood >600 mg/dL (70-110)
[2024-07-16] MEDS: SODIUM CHLORIDE 0.9% 2,000 ML IV ONE (08:54)
[2024-07-16 09:00] LABS: VBG PH 7.26 (7.31-7.41)
[2024-07-16 09:12] LABS: ALT 40 U/L (4-49); AST 34 U/L (17-59); African American GFR (CKD) >90 (>60 ml/min/1.73 sqM); Albumin 4.9 g/dL (3.5-5.0); Alkaline Phosphatase 114 U/L (38-126); Anion Gap 36 mmol/L; Basophils % (A) 0 %; Blood Urea Nitrogen 23 mg/dL (9-20); Calcium 9.6 mg/dL (8.4-10.2); Chloride 96 mmol/L (98-107); Eosinophils # (A) 0.1 k/uL (0-0.7); Eosinophils % (A) 1 %; HCT 44.4 % (39.0-53.0); HGB 13.5 gm/dL (13.0-17.5); Hypochromasia Moderate; Lymphocytes # (A) 1.3 k/uL (1.0-4.8); Lymphocytes % (A) 13 %; MCH 27.6 pg (25.0-35.0); MCHC 30.5 g/dL (31.0-37.0); MCV 90.4 fL (80.0-100.0); Magnesium 2.2 mg/dL (1.6-2.3); Monocytes # (A) 0.3 k/uL (0-1.0); Monocytes % (A) 3 %; Neutrophils # (A) 8.2 k/uL (1.3-7.7); Neutrophils % (A) 82 %; Non-African American GFR(CKD) >90 (>60 ml/min/1.73 sqM); Platelet Count 330 k/uL (150-450); Potassium 5.1 mmol/L (3.5-5.1); RBC 4.91 m/uL (4.30-5.90); RDW 15.7 % (11.5-15.5); Sodium 138 mmol/L (137-145); Total Bilirubin 0.8 mg/dL (0.2-1.3); Total Protein 7.2 g/dL (6.3-8.2)
[2024-07-16 09:18] LABS: Carbon Dioxide 6 mmol/L (22-30); Glucose 724 mg/dL (74-99)
--- NOTE | 2024-07-16 10:02 | ED ---
General Adult HPI - General Chief complaint: Nausea/Vomiting/Diarrhea Stated complaint: vomiting Time Seen by Provider: 07/16/24 08:30 Source: EMS Mode of arrival: EMS Limitations: no limitations - History of Present Illness Initial comments: 28-year-old male with past medical history of type 1 diabetes who presents emergency department with nausea, vomiting and elevated blood sugar. History is limited as patient does not participate in his exam. EMS brought the patient in with the symptoms and found that his glucose was high. Patient is well-known to being noncompliant. IV was started and the patient was administered 4 mg of Zofran. No report of any injuries. Patient admits to generalized abdominal discomfort. No other alleviating, precipitating or modifying factors - Related Data Home Medications Medication Instructions Recorded Confirmed INSULIN LISPRO (humaLOG) [humaLOG] 7 units SQ AC-TID 06/20/24 07/16/24 Insulin Glargine (Lantus) [Lantus 25 unit SQ DAILY 06/20/24 07/16/24 Vial] Allergies Allergy/AdvReac Type Severity Reaction Status Date / Time No Known Allergies Allergy Verified 07/16/24 09:17 Review of Systems ROS Statement: Those systems with pertinent positive or pertinent negative responses have been documented in the HPI. ROS Other: All systems not noted in ROS Statement are negative. Past Medical History Past Medical History: Asthma, Diabetes Mellitus, Neurologic Disorder, Skin Disorder Additional Past Medical History / Comment(s): IDDM type I, neuropathy bilateral feet, DKA, eczema,gastritis History of Any Multi-Drug Resistant Organisms: None Reported Past Surgical History: Adenoidectomy Additional Past Surgical History / Comment(s): gastritis Past Anesthesia/Blood Transfusion Reactions: No Reported Reaction Past Psychological History: Anxiety, Depression Smoking Status: Current every day smoker Past Alcohol Use History: None Reported Past Drug Use History: Marijuana - Past Family History Mother Family Medical History: CVA/TIA Additional Family Medical History / Comment(s): TIA Father Family Medical History: Hyperlipidemia, Hypertension Additional Family Medical History / Comment(s): . General Exam Limitations: altered mental status General appearance: alert, other (vomiting) Head exam: Present: atraumatic, normocephalic, normal inspection Eye exam: Present: normal appearance, PERRL, EOMI. Absent: scleral icterus, conjunctival injection, periorbital swelling ENT exam: Present: mucous membranes dry Respiratory exam: Present: normal lung sounds bilaterally. Absent: respiratory distress, wheezes, rales, rhonchi, stridor Cardiovascular Exam: Present: normal rhythm, tachycardia GI/Abdominal exam: Present: soft, normal bowel sounds. Absent: distended, tenderness, guarding, rebound, rigid Neurological exam: Present: alert Psychiatric exam: Present: flat affect Skin exam: Present: warm, dry, intact, normal color. Absent: rash Course Vital Signs 07/16/24 07/16/24 07/16/24 08:22 11:52 13:09 Temperature 98.6 F Pulse Rate 126 H 125 H 131 H Respiratory 18 18 20 Rate Blood Pressure 125/81 126/80 112/64 O2 Sat by Pulse 100 98 99 Oximetry 07/16/24 15:55 Temperature 97.7 F Pulse Rate 114 H Respiratory 20 Rate Blood Pressure 118/78 O2 Sat by Pulse 98 Oximetry Medical Decision Making - Medical Decision Making Was pt. sent in by a medical professional or institution (, PA, ELEVATOR EXAMINER, urgent care, hospital, or detention...) When possible be specific @ -No Did you speak to anyone other than the patient for history (EMS, parent, family, police, friend...)? What history was obtained from this source @ -Spoke with EMS for history Did you review nursing and triage notes (agree or disagree)? Why? @ -I reviewed and agree with nursing and triage notes Were old charts reviewed (outside hosp., previous admission, EMS record, old EKG, old radiological studies, urgent care reports/EKG's, detention records)? Report findings @ -No old charts were reviewed Differential Diagnosis (chest pain, altered mental status, abdominal pain women, abdominal pain men, vaginal bleeding, weakness, fever, dyspnea, syncope, headache, dizziness, GI bleed, back pain, seizure, CVA, palpatations, mental health, musculoskeletal)? @ -Differential Altered Mental Status: Hypoglycemia, DKA, hypercapnia, ETOH, overdose, CO poisoning, trauma, myxedema coma, HTN encephalopathy, infection, encephalitis, psychosis, intercranial hemorrhage, hepatic encephalopathy, meningitis, CVA, this is not meant to be an all-inclusive list EKG interpreted by me (3pts min.). @ -Pending at this time X-rays interpreted by me (1pt min.). @ -None done CT interpreted by me (1pt min.). @ -None done U/S interpreted by me (1pt. min.). @ -None done What testing was considered but not performed or refused? (CT, X-rays, U/S, labs)? Why? @ -None What meds were considered but not given or refused? Why? @ -None Did you discuss the management of the patient with other professionals (professionals i.e. Dr., PA, ELEVATOR EXAMINER, lab, RT, psych nurse, school social worker, fur farmer, teacher, nuclear officer, keycase assembler)? Give summary @ -Spoke with Dr. castaneda for admission Was smoking cessation discussed for >3mins.? @ -No Was critical care preformed (if so, how long)? @ -Yes, 35 minutes for management of DKA Were there social determinants of health that impacted care today? How? (Homelessness, low income, unemployed, alcoholism, drug addiction, transportation, low edu. Level, literacy, decrease access to med. care, fpc, rehab)? @ -No Was there de-escalation of care discussed even if they declined (Discuss DNR or withdrawal of care, Hospice)? DNR status @ -No What co-morbidities impacted this encounter? (DM, HTN, Smoking, COPD, CAD, Cancer, CVA, ARF, Chemo, Hep., AIDS, mental health diagnosis, sleep apnea, m orbid obesity)? @ -Type 1 diabetes Was patient admitted / discharged? Hospital course, mention meds given and route, prescriptions, significant lab abnormalities, going to OR and other pertinent info. @ -Upon arrival patient seen and evaluated in bed 15. Thorough history and physical exam was performed. Bedside Accu-Chek reads high. Patient is initiated on 2 L of normal saline. Laboratory studies are conducted. He does meet DKA criteria. He is initiated on insulin drip. Patient will be admitted to Dr. Castaneda Undiagnosed new problem with uncertain prognosis? @ -No Drug Therapy requiring intensive monitoring for toxicity (Heparin, Nitro, Insulin, Cardizem)? @ -Insulin Were any procedures done? @ -No Diagnosis/symptom? @ -Acute nausea vomiting, acute DKA Acute, or Chronic, or Acute on Chronic? @ -Acute Uncomplicated (without systemic symptoms) or Complicated (systemic symptoms)? @ -Complicated Side effects of treatment? @ -No Exacerbation, Progression, or Severe Exacerbation? @ -No Poses a threat to life or bodily function? How? (Chest pain, USA, NC, pneumonia, PE, COPD, DKA, ARF, appy, cholecystitis, CVA, Diverticulitis, Homicidal, Suicidal, threat to staff... and all critical care pts) @ -Yes as patient is in DKA - Lab Data Result diagrams: 07/16/24 08:46 07/17/24 11:35 Lab Results 07/16/24 07/16/24 07/16/24 Range/Units 08:34 08:46 08:46 WBC 10.0 (3.8-10.6) k/uL RBC 4.91 (4.30-5.90) m/uL Hgb 13.5 (13.0-17.5) gm/dL Hct 44.4 (39.0-53.0) % MCV 90.4 (80.0-100.0) fL MCH 27.6 (25.0-35.0) pg MCHC 30.5 L (31.0-37.0) g/dL RDW 15.7 H (11.5-15.5) % Plt Count 330 (150-450) k/uL MPV 8.0 Neutrophils % 82 % Lymphocytes % 13 % Monocytes % 3 % Eosinophils % 1 % Basophils % 0 % Neutrophils # 8.2 H (1.3-7.7) k/uL Lymphocytes # 1.3 (1.0-4.8) k/uL Monocytes # 0.3 (0-1.0) k/uL Eosinophils # 0.1 (0-0.7) k/uL Basophils # 0.0 (0-0.2) k/uL Hypochromasia Moderate VBG pH (7.31-7.41) VBG pCO2 (37-51) mmHg VBG HCO3 (24-28) mmol/L Sodium 138 (137-145) mmol/L Potassium 5.1 (3.5-5.1) mmol/L Chloride 96 L (98-107) mmol/L Carbon Dioxide 6 L* (22-30) mmol/L Anion Gap 36 mmol/L BUN 23 H (9-20) mg/dL Creatinine 1.02 (0.66-1.25) mg/dL Est GFR (CKD-EPI)AfAm >90 (>60 ml/min/1.73 sqM) Est GFR (CKD-EPI)NonAf >90 (>60 ml/min/1.73 sqM) Glucose 724 H* (74-99) mg/dL POC Glucose (mg/dL) >600 H* (70-110) mg/dL POC Glu Control Analyst ID Lokesh Herron Lactic Ac Sepsis Rflx Plasma Lactic Acid Len (0.7-2.0) mmol/L Calcium 9.6 (8.4-10.2) mg/dL Magnesium 2.2 (1.6-2.3) mg/dL Total Bilirubin 0.8 (0.2-1.3) mg/dL AST 34 (17-59) U/L ALT 40 (4-49) U/L Alkaline Phosphatase 114 (38-126) U/L Total Protein 7.2 (6.3-8.2) g/dL Albumin 4.9 (3.5-5.0) g/dL Urine Color Urine Appearance (Clear) Urine pH (5.0-8.0) Ur Specific Hyder (1.001-1.035) Urine Protein (Negative) Urine Glucose (UA) (Negative) Urine Ketones (Negative) Urine Blood (Negative) Urine Nitrite (Negative) Urine Bilirubin (Negative) Urine Urobilinogen (<2.0) mg/dL Ur Leukocyte Esterase (Negative) Acetone, Qual Positive (Negative) 07/16/24 07/16/24 07/16/24 Range/Units 08:46 08:46 08:46 WBC (3.8-10.6) k/uL RBC (4.30-5.90) m/uL Hgb (13.0-17.5) gm/dL Hct (39.0-53.0) % MCV (80.0-100.0) fL MCH (25.0-35.0) pg MCHC (31.0-37.0) g/dL RDW (11.5-15.5) % Plt Count (150-450) k/uL MPV Neutrophils % % Lymphocytes % % Monocytes % % Eosinophils % % Basophils % % Neutrophils # (1.3-7.7) k/uL Lymphocytes # (1.0-4.8) k/uL Monocytes # (0-1.0) k/uL Eosinophils # (0-0.7) k/uL Basophils # (0-0.2) k/uL Hypochromasia VBG pH 7.26 L (7.31-7.41) VBG pCO2 23 L (37-51) mmHg VBG HCO3 10 L (24-28) mmol/L Sodium (137-145) mmol/L Potassium (3.5-5.1) mmol/L Chloride (98-107) mmol/L Carbon Dioxide (22-30) mmol/L Anion Gap mmol/L BUN (9-20) mg/dL Creatinine (0.66-1.25) mg/dL Est GFR (CKD-EPI)AfAm (>60 ml/min/1.73 sqM) Est GFR (CKD-EPI)NonAf (>60 ml/min/1.73 sqM) Glucose (74-99) mg/dL POC Glucose (mg/dL) (70-110) mg/dL POC Glu Control Analyst ID Lactic Ac Sepsis Rflx Plasma Lactic Acid Len 3.6 H* (0.7-2.0) mmol/L Calcium (8.4-10.2) mg/dL Magnesium (1.6-2.3) mg/dL Total Bilirubin (0.2-1.3) mg/dL AST (17-59) U/L ALT (4-49) U/L Alkaline Phosphatase (38-126) U/L Total Protein (6.3-8.2) g/dL Albumin (3.5-5.0) g/dL Urine Color Colorless Urine Appearance Clear (Clear) Urine pH 5.0 (5.0-8.0) Ur Specific Hyder 1.027 (1.001-1.035) Urine Protein Negative (Negative) Urine Glucose (UA) 4+ H (Negative) Urine Ketones 4+ H (Negative) Urine Blood Negative (Negative) Urine Nitrite Negative (Negative) Urine Bilirubin Negative (Negative) Urine Urobilinogen <2.0 (<2.0) mg/dL Ur Leukocyte Esterase Negative (Negative) Acetone, Qual (Negative) 07/16/24 Range/Units 09:12 WBC (3.8-10.6) k/uL RBC (4.30-5.90) m/uL Hgb (13.0-17.5) gm/dL Hct (39.0-53.0) % MCV (80.0-100.0) fL MCH (25.0-35.0) pg MCHC (31.0-37.0) g/dL RDW (11.5-15.5) % Plt Count (150-450) k/uL MPV Neutrophils % % Lymphocytes % % Monocytes % % Eosinophils % % Basophils % % Neutrophils # (1.3-7.7) k/uL Lymphocytes # (1.0-4.8) k/uL Monocytes # (0-1.0) k/uL Eosinophils # (0-0.7) k/uL Basophils # (0-0.2) k/uL Hypochromasia VBG pH (7.31-7.41) VBG pCO2 (37-51) mmHg VBG HCO3 (24-28) mmol/L Sodium (137-145) mmol/L Potassium (3.5-5.1) mmol/L Chloride (98-107) mmol/L Carbon Dioxide (22-30) mmol/L Anion Gap mmol/L BUN (9-20) mg/dL Creatinine (0.66-1.25) mg/dL Est GFR (CKD-EPI)AfAm (>60 ml/min/1.73 sqM) Est GFR (CKD-EPI)NonAf (>60 ml/min/1.73 sqM) Glucose (74-99) mg/dL POC Glucose (mg/dL) (70-110) mg/dL POC Glu Control Analyst ID Lactic Ac Sepsis Rflx Y Plasma Lactic Acid Len (0.7-2.0) mmol/L Calcium (8.4-10.2) mg/dL Magnesium (1.6-2.3) mg/dL Total Bilirubin (0.2-1.3) mg/dL AST (17-59) U/L ALT (4-49) U/L Alkaline Phosphatase (38-126) U/L Total Protein (6.3-8.2) g/dL Albumin (3.5-5.0) g/dL Urine Color Urine Appearance (Clear) Urine pH (5.0-8.0) Ur Specific Hyder (1.001-1.035) Urine Protein (Negative) Urine Glucose (UA) (Negative) Urine Ketones (Negative) Urine Blood (Negative) Urine Nitrite (Negative) Urine Bilirubin (Negative) Urine Urobilinogen (<2.0) mg/dL Ur Leukocyte Esterase (Negative) Acetone, Qual (Negative) Disposition Clinical Impression: DKA (diabetic ketoacidoses), Nausea & vomiting Disposition: ADMITTED IP TO THIS [facility] Condition: Good Is patient prescribed a controlled substance at d/c from ED?: No Time of Disposition: 10:02 Decision to Admit Reason: Admit from EC Decision Date: 07/16/24 Decision Time: 10:02
[2024-07-16] MEDS: diphenhydrAMINE 50 MG/ML 1 ML VIAL IVP STA (10:05)
[2024-07-16] MEDS: METOCLOPRAMIDE 5 MG/ML 2 ML VIAL IVP STA (10:05)
[2024-07-16] MEDS: INSULIN REGULAR 100 UNIT in SODIUM CHLORIDE 0.9% 100 ML IV SCH ×2 (10:24→14:26)
[2024-07-16 11:39] LABS: Glucose,Whole Blood 507 mg/dL (70-110)
[2024-07-16] MEDS: INSULIN LISPRO (HumaLOG) 100 UNIT/ML 10 mL VL SQ SCH (11:39)
[2024-07-16 12:11] LABS: African American GFR (CKD) >90 (>60 ml/min/1.73 sqM); Anion Gap 28 mmol/L; Blood Urea Nitrogen 23 mg/dL (9-20); Chloride 105 mmol/L (98-107); Non-African American GFR(CKD) >90 (>60 ml/min/1.73 sqM); Potassium 4.7 mmol/L (3.5-5.1); Sodium 142 mmol/L (137-145)
[2024-07-16 12:14] LABS: Glucose 587 mg/dL (74-99)
[2024-07-16 12:15] LABS: Carbon Dioxide 9 mmol/L (22-30)
[2024-07-16 12:48] LABS: Glucose,Whole Blood 441 mg/dL (70-110)
--- NOTE | 2024-07-16 13:07 | HP ---
HISTORY AND PHYSICAL CHIEF COMPLAINT: Diabetic ketoacidosis. HISTORY OF PRESENT ILLNESS: This is another of many admissions for this 28-year-old depressed type 1 diabetic. Just discharged the other day after he came in with a blood sugar of around 700. He is back in with the same number. He is not vomiting this time and he is less obtunded than usual. REVIEW OF SYSTEMS: He denies headaches, chest pain, palpitations, abdominal pain, etc. He recently had a tachycardia when he was in the hospital. Past medical history, family history, personal and social histories are all otherwise unremarkable and unchanged. PHYSICAL EXAMINATION: VITAL SIGNS: Blood pressure is 112/64 with a pulse of 98, respirations of 36. He is afebrile. GENERAL: He appeared to be slender, disheveled, and dehydrated. HEAD, EARS, EYES, NOSE, MOUTH AND THROAT: Normal except for dry mucous membranes. CHEST: Clear. CARDIAC: Normal. ABDOMEN: Soft, nontender. EXTREMITIES: Normal. NEUROLOGICAL: He is intact. DIAGNOSES: He is admitted to the hospital with diagnoses of: 1. Diabetic ketoacidosis. 2. Type 1 insulin-dependent diabetes mellitus. 3. Noncompliant patient. 4. Depression. 5. Gastroparesis. 6. Peripheral neuropathy. PLAN: 1. Bedrest. 2. IV fluids. 3. DKA protocol. MMODL / IJN: [id number] /
[2024-07-16 13:35] LABS: Glucose,Whole Blood 488 mg/dL (70-110)
[2024-07-16 13:49] LABS: Appearance,Urine Clear (Clear); Bilirubin,Urine Negative (Negative); Blood,Urine Negative (Negative); Color,Urine Colorless; Glucose,Urine (UA) 4+ (Negative); Leukocyte Esterase,Urine Negative (Negative); Nitrite,Urine Negative (Negative); Protein,Urine Negative (Negative); Specific Gravity,Urine 1.027 (1.001-1.035); Urobilinogen,Urine <2.0 mg/dL (<2.0)
[2024-07-16 13:58] LABS: Ketones,Urine 4+ (Negative)
[2024-07-16 14:45] LABS: Glucose,Whole Blood 274 mg/dL (70-110)
[2024-07-16] MEDS: D5-0.45% NACL WITH KCL 20MEQ/L 1,000 ML IV SCH (15:19)
[2024-07-16 15:49] LABS: Glucose,Whole Blood 179 mg/dL (70-110)
[2024-07-16 16:00] LABS: African American GFR (CKD) >90 (>60 ml/min/1.73 sqM); Anion Gap 21 mmol/L; Blood Urea Nitrogen 22 mg/dL (9-20); Carbon Dioxide 16 mmol/L (22-30); Chloride 108 mmol/L (98-107); Glucose 208 mg/dL (74-99); Non-African American GFR(CKD) >90 (>60 ml/min/1.73 sqM); Potassium 4.3 mmol/L (3.5-5.1); Sodium 145 mmol/L (137-145)
[2024-07-16 16:56] LABS: Glucose,Whole Blood 130 mg/dL (70-110)
[2024-07-16 17:55] LABS: Glucose,Whole Blood 107 mg/dL (70-110)
[2024-07-16 19:00] LABS: Glucose,Whole Blood 84 mg/dL (70-110)
[2024-07-16 20:04] LABS: Glucose,Whole Blood 104 mg/dL (70-110)
--- NOTE | 2024-07-16 20:13 | HP ---
HISTORY AND PHYSICAL CHIEF COMPLAINT: Elevated blood sugar. HISTORY OF PRESENT ILLNESS: This is another admission for this 28-year-old depressed white male. He was just discharged yesterday. He came back in with a blood sugar over 700. He admits to not taking his insulin. REVIEW OF SYSTEMS: Otherwise noncontributory. Past medical history, family history, and personal and social histories are all unchanged. PHYSICAL EXAMINATION: VITAL SIGNS: Pulse is 123. HEAD, EARS, EYES, NOSE, MOUTH, THROAT: Normal except for dry mucous membranes. CHEST: Clear. CARDIAC: Demonstrated sinus tachycardia. ABDOMEN: Flat, soft, nontender. EXTREMITIES: Normal. IMPRESSION: 1. Diabetic ketoacidosis. 2. Dehydration. 3. Depression. PLAN: 1. Bedrest. 2. IV fluids. 3. DKA protocol. MMODL / IJN: [id number] /
[2024-07-16 20:51] LABS: African American GFR (CKD) >90 (>60 ml/min/1.73 sqM); Anion Gap 15 mmol/L; Blood Urea Nitrogen 20 mg/dL (9-20); Calcium 8.9 mg/dL (8.4-10.2); Carbon Dioxide 17 mmol/L (22-30); Chloride 107 mmol/L (98-107); Glucose 114 mg/dL (74-99); Non-African American GFR(CKD) >90 (>60 ml/min/1.73 sqM); Potassium 4.4 mmol/L (3.5-5.1); Sodium 139 mmol/L (137-145)
[2024-07-16 21:09] LABS: Glucose,Whole Blood 122 mg/dL (70-110)
[2024-07-16 22:06] LABS: Glucose,Whole Blood 193 mg/dL (70-110)
[2024-07-16 23:23] LABS: Glucose,Whole Blood 268 mg/dL (70-110)
[2024-07-17 00:02] LABS: Glucose,Whole Blood 235 mg/dL (70-110)
[2024-07-17 01:05] LABS: Glucose,Whole Blood 216 mg/dL (70-110)
[2024-07-17 02:16] LABS: ALT 32 U/L (4-49); AST 20 U/L (17-59); African American GFR (CKD) >90 (>60 ml/min/1.73 sqM); Albumin 3.8 g/dL (3.5-5.0); Alkaline Phosphatase 81 U/L (38-126); Anion Gap 16 mmol/L; Blood Urea Nitrogen 18 mg/dL (9-20); Calcium 8.6 mg/dL (8.4-10.2); Carbon Dioxide 16 mmol/L (22-30); Chloride 104 mmol/L (98-107); Glucose 243 mg/dL (74-99); Non-African American GFR(CKD) >90 (>60 ml/min/1.73 sqM); Potassium 4.2 mmol/L (3.5-5.1); Sodium 136 mmol/L (137-145); Total Bilirubin 0.6 mg/dL (0.2-1.3); Total Protein 6.1 g/dL (6.3-8.2)
[2024-07-17 02:20] LABS: Glucose,Whole Blood 192 mg/dL (70-110)
[2024-07-17 03:14] LABS: Glucose,Whole Blood 206 mg/dL (70-110)
[2024-07-17 04:42] LABS: Glucose,Whole Blood 188 mg/dL (70-110)
[2024-07-17 04:48] LABS: ALT 29 U/L (4-49); AST 19 U/L (17-59); African American GFR (CKD) >90 (>60 ml/min/1.73 sqM); Albumin 3.5 g/dL (3.5-5.0); Alkaline Phosphatase 73 U/L (38-126); Anion Gap 13 mmol/L; Blood Urea Nitrogen 17 mg/dL (9-20); Calcium 8.5 mg/dL (8.4-10.2); Carbon Dioxide 20 mmol/L (22-30); Chloride 102 mmol/L (98-107); Glucose 222 mg/dL (74-99); Non-African American GFR(CKD) >90 (>60 ml/min/1.73 sqM); Sodium 135 mmol/L (137-145); Total Bilirubin 0.6 mg/dL (0.2-1.3); Total Protein 5.8 g/dL (6.3-8.2)
[2024-07-17 05:22] LABS: Glucose,Whole Blood 173 mg/dL (70-110)
[2024-07-17 06:05] LABS: Glucose,Whole Blood 233 mg/dL (70-110)
[2024-07-17 06:55] LABS: Glucose,Whole Blood 207 mg/dL (70-110)
[2024-07-17 08:04] LABS: Glucose,Whole Blood 165 mg/dL (70-110)
[2024-07-17 08:47] LABS: ALT 26 U/L (4-49); AST 19 U/L (17-59); African American GFR (CKD) >90 (>60 ml/min/1.73 sqM); Albumin 3.4 g/dL (3.5-5.0); Alkaline Phosphatase 65 U/L (38-126); Anion Gap 11 mmol/L; Blood Urea Nitrogen 16 mg/dL (9-20); Calcium 8.3 mg/dL (8.4-10.2); Carbon Dioxide 20 mmol/L (22-30); Chloride 102 mmol/L (98-107); Glucose 175 mg/dL (74-99); Non-African American GFR(CKD) >90 (>60 ml/min/1.73 sqM); Potassium 4.1 mmol/L (3.5-5.1); Sodium 133 mmol/L (137-145); Total Bilirubin 0.5 mg/dL (0.2-1.3); Total Protein 5.8 g/dL (6.3-8.2)
[2024-07-17 09:04] LABS: Glucose,Whole Blood 187 mg/dL (70-110)
[2024-07-17 10:03] LABS: Glucose,Whole Blood 149 mg/dL (70-110)
[2024-07-17 11:04] LABS: Glucose,Whole Blood 171 mg/dL (70-110)
[2024-07-17 12:05] LABS: Glucose,Whole Blood 256 mg/dL (70-110)
[2024-07-17 12:33] LABS: African American GFR (CKD) >90 (>60 ml/min/1.73 sqM); Anion Gap 10 mmol/L; Blood Urea Nitrogen 14 mg/dL (9-20); Calcium 8.4 mg/dL (8.4-10.2); Carbon Dioxide 21 mmol/L (22-30); Chloride 97 mmol/L (98-107); Glucose 201 mg/dL (74-99); Non-African American GFR(CKD) >90 (>60 ml/min/1.73 sqM); Potassium 4.2 mmol/L (3.5-5.1); Sodium 128 mmol/L (137-145)
[2024-07-17] MEDS: INSULIN GLARGINE (LANTUS) 100 UNIT/ML SYR SQ SCH (13:03)
[2024-07-17 13:20] LABS: Glucose,Whole Blood 244 mg/dL (70-110)
[2024-07-17 14:21] LABS: Glucose,Whole Blood 190 mg/dL (70-110)
[2024-07-17 16:37] LABS: Glucose,Whole Blood 293 mg/dL (70-110)
[2024-07-17 20:12] LABS: Glucose,Whole Blood 179 mg/dL (70-110)
--- NOTE | 2024-07-17 21:25 | PN ---
PROGRESS NOTE DATE OF SERVICE: 07/17/2024 CHIEF COMPLAINT: DKA. HISTORY OF PRESENT ILLNESS: This gentleman is doing well. Blood sugars are coming down and he has been treated with injection. PHYSICAL EXAMINATION: CHEST: Clear. CARDIAC: Normal. IMPRESSION: DKA. PLAN: Progress activity and diet and probably home tomorrow. MMODL / IJN: [id number] /
[2024-07-18 05:59] LABS: Glucose,Whole Blood 319 mg/dL (70-110)
[2024-07-18 07:46] LABS: Glucose,Whole Blood 198 mg/dL (70-110)
[2024-07-18 08:30] VITALS: RESP 17; TEMP 98.6
[2024-07-18 11:32] VITALS: BP 111/78; PULSE 100
[2024-07-18 12:13] LABS: Glucose,Whole Blood 320 mg/dL (70-110)
--- NOTE | 2024-07-18 20:17 | DS ---
DISCHARGE SUMMARY CHIEF COMPLAINT: Diabetic ketoacidosis. HISTORY OF PRESENT ILLNESS AND PHYSICAL EXAMINATION: Details of this man's history and physical can be found in the initial workup. LABORATORY STUDIES: While he was in the hospital, he had laboratory studies, details of which can be found in the laboratory section of the chart. COURSE IN THE HOSPITAL: After admission, he was placed on bedrest, and he was started on intravenous fluids and DKA protocol. His sugars came down and his gap closed and he was transferred over to his basal bolus program and he was doing well. It is felt that he will be discharged on . FINAL DIAGNOSES: 1. Diabetic ketoacidosis. 2. Noncompliant patient. OPERATIONS: None. CONSULTATIONS: None. He has improved. MMODL / IJN: [id number] /
== END 2024-07-18 14:24 | disposition home or self-care (01) | DRG 420 ==
LOC: EC 08:20 → 3SCARD 09:53
PROVIDERS: ADMIT Family Medicine; ATTEND Family Medicine
DX: E10.10 Type 1 diabetes mellitus with ketoacidosis without coma (principal); E86.0 Dehydration; J45.909 Unspecified asthma, uncomplicated; R00.0 Tachycardia, unspecified; E10.42 Type 1 diabetes mellitus with diabetic polyneuropathy; F32.A Depression, unspecified; E10.43 Type 1 diabetes mellitus with diabetic autonomic (poly)neuropathy; K31.84 Gastroparesis; T38.3X6A Underdosing of insulin and oral hypoglycemic [antidiabetic] drugs, initial encounter; F17.210 Nicotine dependence, cigarettes, uncomplicated; Z79.4 Long term (current) use of insulin; Z82.49 Family history of ischemic heart disease and other diseases of the circulatory system; Z91.128 Patient's intentional underdosing of medication regimen for other reason; Z91.199 Patient's noncompliance with other medical treatment and regimen due to unspecified reason; X58.XXXA Exposure to other specified factors, initial encounter
CPT/HCPCS: 36415; 80048; 80051; 80053; 81003; 82009; 82565; 82803; 82947; 83605; 83735; 84100; 84520; 85025; 96361; 96365; 96375; 99291

== ENCOUNTER 2024-07-27 00:28 | Inpatient (IN) | payer OTHER ==
--- NOTE | 2024-07-27 00:33 | ED ---
Recheck HPI - General Stated Complaint: abnormal labs Time Seen by Provider: 07/27/24 00:30 Source: RN notes reviewed, old records reviewed Mode of arrival: EMS Limitations: no limitations - History of Present Illness Initial Comments: This is a 28-year-old male to the ER for evaluation presents today for evaluation of suspected DKA elevated blood sugar, patient has known diabetes, type I. Patient has no recent illness fever no recent diarrhea. Taking no drugs or alcohol but states that is been vomiting not feeling well and unable keep anything down for the last 2 days MD Complaint: abnormal lab (hyperglycemia, DKA) -: days(s) Returns Today for: Called Because of Abnormal Lab/Test, persistent/worsening pain related to initial visit Symptoms Since Prior Visit: worsening pain Context: called for abnormal lab result Treatments Prior to Arrival: Given Pain Meds on - Related Data Home Medications Medication Instructions Recorded Confirmed INSULIN LISPRO (humaLOG) [humaLOG] 7 units SQ AC-TID 06/20/24 07/16/24 Insulin Glargine (Lantus) [Lantus 25 unit SQ DAILY 06/20/24 07/16/24 Vial] Allergies Allergy/AdvReac Type Severity Reaction Status Date / Time No Known Allergies Allergy Verified 07/16/24 09:17 Review of Systems ROS Statement: Those systems with pertinent positive or pertinent negative responses have been documented in the HPI. ROS Other: All systems not noted in ROS Statement are negative. Past Medical History Past Medical History: Asthma, Diabetes Mellitus, Neurologic Disorder, Skin Disorder Additional Past Medical History / Comment(s): IDDM type I, neuropathy bilateral feet, DKA, eczema,gastritis History of Any Multi-Drug Resistant Organisms: None Reported Past Surgical History: Adenoidectomy Additional Past Surgical History / Comment(s): gastritis Past Anesthesia/Blood Transfusion Reactions: No Reported Reaction Past Psychological History: Anxiety, Depression Smoking Status: Current every day smoker Past Alcohol Use History: None Reported Past Drug Use History: Marijuana - Past Family History Mother Family Medical History: CVA/TIA Additional Family Medical History / Comment(s): TIA Father Family Medical History: Hyperlipidemia, Hypertension Additional Family Medical History / Comment(s): . General Exam General appearance: alert, in no apparent distress Head exam: Present: atraumatic, normocephalic, normal inspection Eye exam: Present: normal appearance, PERRL, EOMI. Absent: scleral icterus, conjunctival injection, periorbital swelling ENT exam: Present: normal exam, mucous membranes moist Neck exam: Present: normal inspection. Absent: tenderness, meningismus, lymphadenopathy Respiratory exam: Present: normal lung sounds bilaterally. Absent: respiratory distress, wheezes, rales, rhonchi, stridor Cardiovascular Exam: Present: regular rate, normal rhythm, normal heart sounds. Absent: systolic murmur, diastolic murmur, rubs, gallop, clicks GI/Abdominal exam: Present: soft, normal bowel sounds. Absent: distended, tenderness, guarding, rebound, rigid Extremities exam: Present: normal inspection, full ROM, normal capillary refill. Absent: tenderness, pedal edema, joint swelling, calf tenderness Back exam: Present: normal inspection Neurological exam: Present: alert, oriented X3, CN II-XII intact Psychiatric exam: Present: normal affect, normal mood Skin exam: Present: warm, dry, intact, normal color. Absent: rash Course Vital Signs 07/27/24 07/27/24 00:30 00:38 Temperature 97.3 F L Pulse Rate 118 H Respiratory 20 Rate Blood Pressure 140/92 O2 Sat by Pulse 98 Oximetry - Reevaluation(s) Reevaluation #1: 07/27/24 01:26 Medical records reviewed Reevaluation #2: 07/27/24 01:26 Patient symptoms are improving here in the ER Reevaluation #3: 07/27/24 01:52 Informed of results questions answered Reevaluation #4: Was pt. sent in by a medical professional or institution (, PA, CERTIFIED NURSES AIDE, urgent care, hospital, or long-term...) When possible be specific @ -no Did you speak to anyone other than the patient for history (EMS, parent, family, police, friend...)? What history was obtained from this source @ -no Did you review nursing and triage notes (agree or disagree)? Why? @ -agree Are old charts reviewed (outside hosp., previous admission, EMS record, old EKG, old radiological studies, urgent care reports/EKG's, long-term records)? Report findings @ -yes Differential Diagnosis (chest pain, altered mental status, abdominal pain women, abdominal pain men, vaginal bleeding, weakness, fever, dyspnea, syncope, headache, dizziness, GI bleed, back pain, seizure, CVA, palpatations, mental health, musculoskeletal)? @ -prior EKG interpreted by me (3pts min.). @ -yes X-rays interpreted by me (1pt min.). @ -yes negative for acute disease CT interpreted by me (1pt min.). @ -no U/S interpreted by me (1pt. min.). @ -no What testing was considered but not performed or refused? (CT, X-rays, U/S, labs)? Why? @ -none What meds were considered but not given or refused? Why? @ -none Did you discuss the management of the patient with other professionals (alley mcpherson i.e. , PA, CERTIFIED NURSES AIDE, lab, RT, psych nurse, rn social services, collections representative, teacher, certified juvenile probation officer, rehabilitation caseworker)? Give summary @ -no Was smoking cessation discussed for >3mins.? @ -no Was critical care preformed (if so, how long)? @ -no Were there social determinants of health that impacted care today? How? (Homelessness, low income, unemployed, alcoholism, drug addiction, transportation, low edu. Level, literacy, decrease access to med. care, correction, rehab)? @ -none Was there de-escalation of care discussed even if they declined (Discuss DNR or withdrawal of care, Hospice)? DNR status @ -no What co-morbidities impacted this encounter? (DM, HTN, Smoking, COPD, CAD, Cancer, CVA, ARF, Chemo, Hep., AIDS, mental health diagnosis, sleep apnea, morbid obesity)? @ -none Was patient admitted / discharged? Hospital course, mention meds given and route, prescriptions, significant lab abnormalities, going to OR and other pertinent info. @ - Undiagnosed new problem with uncertain prognosis? @ -no Drug Therapy requiring intensive monitoring for toxicity (Heparin, Nitro, Insulin, Cardizem)? @ -no Were any procedures done? @ -no Diagnosis/symptom? @ - Acute, or Chronic, or Acute on Chronic? @ -Acute Uncomplicated (without systemic symptoms) or Complicated (systemic symptoms)? @ -Complicated Side effects of treatment? @ -no Exacerbation, Progression, or Severe Exacerbation? @ -exacerbation Poses a threat to life or bodily function? How? (Chest pain, [place], [place], pneumonia, PE, COPD, DKA, ARF, appy, cholecystitis, CVA, Diverticulitis, Homicidal, Suicidal, threat to staff... and all critical care pts) @ -yes Reevaluation #5: Differential Weakness: Hypoglycemia, shock, sepsis, hyponatremia, anemia, infection, [place], ETOH, adverse medicine reaction, overdose, stroke, this is not meant to be an all-inclusive list. - Consultations Consultation #1: Dr. Valenzuela who agrees to admit the Medical Decision Making - Medical Decision Making 28 male well-known to this ER for diabetes patient with DKA - Lab Data Result diagrams: 07/27/24 00:54 07/27/24 00:54 Lab Results 07/27/24 07/27/24 07/27/24 Range/Units 00:40 00:54 00:54 WBC 9.6 (3.8-10.6) k/uL RBC 4.64 (4.30-5.90) m/uL Hgb 12.3 L (13.0-17.5) gm/dL Hct 44.5 (39.0-53.0) % MCV 96.0 D (80.0-100.0) fL MCH 26.5 (25.0-35.0) pg MCHC 27.6 L (31.0-37.0) g/dL RDW 15.3 (11.5-15.5) % Plt Count 458 H (150-450) k/uL MPV 7.6 Neutrophils % 68 % Lymphocytes % 26 % Monocytes % 3 % Eosinophils % 1 % Basophils % 0 % Neutrophils # 6.5 (1.3-7.7) k/uL Lymphocytes # 2.5 (1.0-4.8) k/uL Monocytes # 0.3 (0-1.0) k/uL Eosinophils # 0.1 (0-0.7) k/uL Basophils # 0.0 (0-0.2) k/uL Hypochromasia Marked VBG pH 7.21 L (7.31-7.41) VBG pCO2 20 L (37-51) mmHg VBG HCO3 8 L* (24-28) mmol/L Sodium 134 L (137-145) mmol/L Potassium 5.1 (3.5-5.1) mmol/L Chloride 95 L (98-107) mmol/L Carbon Dioxide <5 L* (22-30) mmol/L Anion Gap mmol/L BUN 25 H (9-20) mg/dL Creatinine 1.00 (0.66-1.25) mg/dL Est GFR (CKD-EPI)AfAm >90 (>60 ml/min/1.73 sqM) Est GFR (CKD-EPI)NonAf >90 (>60 ml/min/1.73 sqM) Glucose 709 H* (74-99) mg/dL POC Glucose (mg/dL) (70-110) mg/dL POC Glu Wire Frame [place]amp [place]ade Maker ID Plasma Lactic Acid Len (0.7-2.0) mmol/L Calcium 9.5 (8.4-10.2) mg/dL Phosphorus 5.6 H (2.5-4.5) mg/dL Magnesium 2.0 (1.6-2.3) mg/dL Total Bilirubin 0.8 (0.2-1.3) mg/dL AST 21 (17-59) U/L ALT 29 (4-49) U/L Alkaline Phosphatase 125 (38-126) U/L Troponin I (0.000-0.034) ng/mL Total Protein 7.0 (6.3-8.2) g/dL Albumin 4.7 (3.5-5.0) g/dL 07/27/24 07/27/24 07/27/24 Range/Units 00:54 00:54 01:46 WBC (3.8-10.6) k/uL RBC (4.30-5.90) m/uL Hgb (13.0-17.5) gm/dL Hct (39.0-53.0) % MCV (80.0-100.0) fL MCH (25.0-35.0) pg MCHC (31.0-37.0) g/dL RDW (11.5-15.5) % Plt Count (150-450) k/uL MPV Neutrophils % % Lymphocytes % % Monocytes % % Eosinophils % % Basophils % % Neutrophils # (1.3-7.7) k/uL Lymphocytes # (1.0-4.8) k/uL Monocytes # (0-1.0) k/uL Eosinophils # (0-0.7) k/uL Basophils # (0-0.2) k/uL Hypochromasia VBG pH (7.31-7.41) VBG pCO2 (37-51) mmHg VBG HCO3 (24-28) mmol/L Sodium (137-145) mmol/L Potassium (3.5-5.1) mmol/L Chloride (98-107) mmol/L Carbon Dioxide (22-30) mmol/L Anion Gap mmol/L BUN (9-20) mg/dL Creatinine (0.66-1.25) mg/dL Est GFR (CKD-EPI)AfAm (>60 ml/min/1.73 sqM) Est GFR (CKD-EPI)NonAf (>60 ml/min/1.73 sqM) Glucose (74-99) mg/dL POC Glucose (mg/dL) >600 H* (70-110) mg/dL POC Glu Wire Frame [place]amp [place] Maker ID Enedina John Plasma Lactic Acid Len 3.7 H* (0.7-2.0) mmol/L Calcium (8.4-10.2) mg/dL Phosphorus (2.5-4.5) mg/dL Magnesium (1.6-2.3) mg/dL Total Bilirubin (0.2-1.3) mg/dL AST (17-59) U/L ALT (4-49) U/L Alkaline Phosphatase (38-126) U/L Troponin I <0.012 (0.000-0.034) ng/mL Total Protein (6.3-8.2) g/dL Albumin (3.5-5.0) g/dL - EKG Data -: EKG Interpreted by Me (EKG is sinus tachycardia 133 WI 129 QRS 94 QTc 397) - Radiology Data Radiology results: report reviewed, image reviewed Disposition Clinical Impression: Diabetic ketoacidosis associated with type 1 diabetes mellitus Disposition: ADMITTED IP TO THIS HOSP Condition: Critical Is patient prescribed a controlled substance at d/c from ED?: No Referrals: Brown Valenzuela MD [Primary Care Provider] - 1-2 days Time of Disposition: 01:55
[2024-07-27] MEDS: ONDANSETRON 4 MG/2 ML VIAL IVP STA (00:47)
[2024-07-27] MEDS: LORazepam 2 MG/ML INJ IV STA (00:51)
[2024-07-27] MEDS: SODIUM CHLORIDE 0.9% 1,000 ML IV STA (00:52)
[2024-07-27 01:09] LABS: VBG PH 7.21 (7.31-7.41)
[2024-07-27 01:22] LABS: Basophils % (A) 0 %; Eosinophils # (A) 0.1 k/uL (0-0.7); Eosinophils % (A) 1 %; HCT 44.5 % (39.0-53.0); HGB 12.3 gm/dL (13.0-17.5); Hypochromasia Marked; Lymphocytes # (A) 2.5 k/uL (1.0-4.8); Lymphocytes % (A) 26 %; MCH 26.5 pg (25.0-35.0); MCHC 27.6 g/dL (31.0-37.0); Mean Platelet Volume 7.6; Monocytes # (A) 0.3 k/uL (0-1.0); Monocytes % (A) 3 %; Neutrophils # (A) 6.5 k/uL (1.3-7.7); Neutrophils % (A) 68 %; Platelet Count 458 k/uL (150-450); RBC 4.64 m/uL (4.30-5.90); RDW 15.3 % (11.5-15.5); WBC 9.6 k/uL (3.8-10.6)
[2024-07-27 01:23] LABS: ALT 29 U/L (4-49); AST 21 U/L (17-59); African American GFR (CKD) >90 (>60 ml/min/1.73 sqM); Albumin 4.7 g/dL (3.5-5.0); Alkaline Phosphatase 125 U/L (38-126); Blood Urea Nitrogen 25 mg/dL (9-20); Calcium 9.5 mg/dL (8.4-10.2); Chloride 95 mmol/L (98-107); Non-African American GFR(CKD) >90 (>60 ml/min/1.73 sqM); Phosphorus 5.6 mg/dL (2.5-4.5); Potassium 5.1 mmol/L (3.5-5.1); Sodium 134 mmol/L (137-145); Total Bilirubin 0.8 mg/dL (0.2-1.3)
[2024-07-27 01:36] LABS: INR 0.9 (<1.2); Prothrombin Time 10.5 sec (10.0-12.5)
[2024-07-27 01:42] LABS: Carbon Dioxide <5 mmol/L (22-30); Glucose 709 mg/dL (74-99)
[2024-07-27 01:48] LABS: Glucose,Whole Blood >600 mg/dL (70-110)
[2024-07-27] MEDS ORDERED: NALOXONE 0.4 MG/ML 1 ML VIAL IV PRN (01:54)
[2024-07-27] MEDS ORDERED: LORazepam 2 MG/ML INJ IV PRN (01:54)
[2024-07-27 01:58] LABS: Partial Thromboplastin Time 21.5 sec (22.0-30.0)
[2024-07-27] MEDS: SODIUM CHLORIDE 0.9% 1,000 ML IV ONE (01:59)
[2024-07-27 02:04] LABS: Appearance,Urine Clear (Clear); Bilirubin,Urine Negative (Negative); Blood,Urine Negative (Negative); Color,Urine Colorless; Glucose,Urine (UA) 4+ (Negative); Leukocyte Esterase,Urine Negative (Negative); Nitrite,Urine Negative (Negative); Protein,Urine Negative (Negative); Specific Gravity,Urine 1.024 (1.001-1.035); Urobilinogen,Urine <2.0 mg/dL (<2.0)
[2024-07-27] MEDS: SODIUM BICARB 8.4% 50 ML SYR (1 MEQ/ML) IV STA ×2 (02:06)
[2024-07-27] MEDS: DEXTROSE 5% IN WATER 1,000 ML with SODIUM BICARB (1 MEQ/ML) 150 ML IV SCH (02:12)
[2024-07-27 02:13] LABS: Ketones,Urine 4+ (Negative)
[2024-07-27] MEDS: SODIUM CHLORIDE 0.9% 1,000 ML IV SCH (02:14)
[2024-07-27 02:37] LABS: Glucose,Whole Blood >600 mg/dL (70-110)
[2024-07-27] MEDS: INSULIN REGULAR 100 UNIT in SODIUM CHLORIDE 0.9% 100 ML IV SCH (02:37)
[2024-07-27 03:40] LABS: Glucose,Whole Blood 518 mg/dL (70-110)
[2024-07-27 04:42] LABS: Glucose,Whole Blood 351 mg/dL (70-110)
[2024-07-27] MEDS ORDERED: Potassium Replacement Protocol 1 EACH MISC MISCELLANE PRN (04:52)
[2024-07-27] MEDS ORDERED: Magnesium Replacement Protocol 1 EACH MISC MISCELLANE PRN (04:52)
[2024-07-27] MEDS ORDERED: Phosphorus Replacement Protoco 1 EACH MISC MISCELLANE PRN (04:52)
--- NOTE | 2024-07-27 04:53 | P.CNPUL ---
History of Present Illness Consult date: 07/27/24 Requesting physician: Julian Posadas Reason for consult: other (Diabetic ketoacidosis) Chief complaint: Nausea, vomiting, high blood sugars History of present illness: Patient is a 28-year-old white male with history of type 1 diabetes melitis and medication noncompliance. He has had numerous hospital admissions for DKA, and was recently discharged on July 18 for the same. Patient present emergency department early this morning. States he last took his insulin yesterday morning . His blood sugars were reading high while at home. Followed by nausea and vomiting. Denies hematemesis. Denies abdominal pain, diarrhea. Denies sick contacts. Denies infectious-like symptoms. Labs consistent with DKA on arrival. Blood glucose 709, serum bicarb less than 5, anion gap unmeasurable. Urine ketone positive. VBG with a pH of 7.21 and pCO2 of 20. He is admitted with diabetic ketoacidosis and started on the DKA protocol. Patient currently being evaluated in the emergency department as a ICU hold. Remainder of workup in the ER including a CBC with a WBC count of 9.6, hemoglobin 12.3, platelets 458. CMP: Sodium 134, potassium 5.1, chloride 95, serum bicarb less than 5, anion gap unmeasurable, BUN 25, creatinine 1, glucose 709. Lactic 3.7. Magnesium 2. LFTs not elevated. Troponin less than 0.012. Urinalysis unremarkable for infection, glucose and ketone positive. Patient currently being evaluated in the emergency department. He is lethargic. Awakens and answers questions appropriately. Remains tachycardic, with heart rate of 122 bpm. Kussmaul breathing. Continues on DKA protocol, insulin infusing at 6 units/h. Normal saline infusing at 200 mL/h. Most recent [id number] glucose still greater than 600 g/dL. Review of Systems Constitutional: Reports fatigue, Denies chills, Denies fever, Denies weight gain, Denies weight loss Ears, nose, mouth and throat: Denies headache, Denies nasal congestion, Denies nasal discharge, Denies post-nasal drip, Denies sinus pain, Denies sinus pressure, Denies sore throat Cardiovascular: Denies chest pain, Denies irregular heart beat, Denies orthopnea, Denies palpitations, Denies paroxysmal nocturnal dyspnea, Denies shortness of breath, Denies syncope Respiratory: Denies congestion, Denies cough, Denies cough with sputum, Denies dyspnea, Denies respiratory infections Gastrointestinal: Reports nausea, Reports vomiting, Denies abdominal pain, Denies change in bowel habits, Denies coffee ground emesis, Denies constipation, Denies diarrhea Genitourinary: Denies dysuria, Denies flank pain, Denies urinary frequency Musculoskeletal: Denies limitation of motion Integumentary: Denies rash Neurological: Denies confusion, Denies headaches, Denies memory loss, Denies seizures, Denies visual changes Psychiatric: Denies anxiety, Denies depression Endocrine: Reports high blood sugars, Reports polydipsia, Reports polyuria Past Medical History Past Medical History: Asthma, Diabetes Mellitus, Neurologic Disorder, Skin Disorder Additional Past Medical History / Comment(s): IDDM type I, neuropathy bilateral feet, DKA, eczema,gastritis History of Any Multi-Drug Resistant Organisms: None Reported Past Surgical History: Adenoidectomy Additional Past Surgical History / Comment(s): gastritis Past Anesthesia/Blood Transfusion Reactions: No Reported Reaction Past Psychological History: Anxiety, Depression Smoking Status: Current every day smoker Past Alcohol Use History: None Reported Past Drug Use History: Marijuana - Past Family History Mother Family Medical History: CVA/TIA Additional Family Medical History / Comment(s): TIA Father Family Medical History: Hyperlipidemia, Hypertension Additional Family Medical History / Comment(s): . Medications and Allergies Home Medications Medication Instructions Recorded Confirmed Type INSULIN LISPRO (humaLOG) [humaLOG] 7 units SQ AC-TID 06/20/24 07/16/24 History Insulin Glargine (Lantus) [Lantus 25 unit SQ DAILY 06/20/24 07/16/24 History Vial] Allergies Allergy/AdvReac Type Severity Reaction Status Date / Time No Known Allergies Allergy Verified 07/16/24 09:17 Physical Exam Vitals: Vital Signs Temp Pulse Resp BP Pulse Ox 07/27/24 02:00 130 H 22 95/60 99 07/27/24 00:38 97.3 F L 07/27/24 00:30 118 H 20 140/92 98 Intake and Output 07/26/24 07/26/24 07/27/24 14:59 22:59 06:59 Other: Weight 58.967 kg GENERAL EXAM: Lethargic, 28-year-old male, disheveled, rapid deep breathing, tachycardic. HEAD: Normocephalic and atraumatic EYES: Normal reaction of pupils, equal size. NOSE: Clear with pink turbinates. THROAT: No erythema or exudates. NECK: No masses, no JVD. CHEST: No chest wall deformity. LUNGS: Equal air entry with no crackles, wheeze, rhonchi or dullness. On room air. No conversational dyspnea or accessory muscle use.. CVS: S1 and S2 normal with no audible murmur, regular rhythm. No extra heart sounds ABDOMEN: No hepatosplenomegaly, active bowel sounds, no guarding or rigidity. SPINE: No scoliosis or deformity SKIN: No rashes CENTRAL NERVOUS SYSTEM: No focal deficits, tone is normal in all 4 extremities. EXTREMITIES: There is no peripheral edema, clubbing, or cyanosis. Peripheral pulses are intact. Results - Laboratory Findings CBC and BMP: 07/27/24 00:54 07/27/24 00:54 PT/INR, D-dimer PT 10.5 sec (10.0-12.5) 07/27/24 00:54 INR 0.9 (<1.2) 07/27/24 00:54 Abnormal lab findings: Abnormal Labs 07/27/24 07/27/24 07/27/24 00:40 00:54 00:54 Hgb 12.3 L MCHC 27.6 L Plt Count 458 H APTT 21.5 L VBG pH 7.21 L VBG pCO2 20 L VBG HCO3 8 L* Sodium Chloride Carbon Dioxide BUN Glucose POC Glucose (mg/dL) Plasma Lactic Acid Len Phosphorus Urine Glucose (UA) Urine Ketones 07/27/24 07/27/24 07/27/24 00:54 00:54 01:46 Hgb MCHC Plt Count APTT VBG pH VBG pCO2 VBG HCO3 Sodium 134 L Chloride 95 L Carbon Dioxide <5 L* BUN 25 H Glucose 709 H* POC Glucose (mg/dL) >600 H* Plasma Lactic Acid Eln 3.7 H* Phosphorus 5.6 H Urine Glucose (UA) Urine Ketones 07/27/24 07/27/24 01:49 02:35 Hgb MCHC Plt Count APTT VBG pH VBG pCO2 VBG HCO3 Sodium Chloride Carbon Dioxide BUN Glucose POC Glucose (mg/dL) >600 H* Plasma Lactic Acid Len Phosphorus Urine Glucose (UA) 4+ H Urine Ketones 4+ H Assessment and Plan Assessment: Acute diabetic ketoacidosis, secondary to medication noncompliance. Patient has had numerous hospital admissions for DKA. Severe anion gap metabolic acidosis, secondary to above Severe dehydration Type 1 diabetes mellitus, with poor medication compliance Diabetic neuropathy History of gastritis History of major depression Plan: Patient currently seen in the emergency department as an ICU hold. Continue on DKA protocol Continue electrolyte checks every 4 hours Continue on IV insulin per protocol Patient educated on the importance of diabetic medication compliance GI prophylaxis with Protonix Patient will be admitted to the intensive care unit once bed available I have personally seen and examined the patient, performed the documentation and the assessment and plan as written. Number of minutes spent on the visit:20 Time with Patient: Greater than 30
[2024-07-27 05:17] LABS: Glucose,Whole Blood 312 mg/dL (70-110)
[2024-07-27 05:20] LABS: African American GFR (CKD) >90 (>60 ml/min/1.73 sqM); Anion Gap 30 mmol/L; Blood Urea Nitrogen 27 mg/dL (9-20); Carbon Dioxide 10 mmol/L (22-30); Chloride 105 mmol/L (98-107); Glucose 429 mg/dL (74-99); Non-African American GFR(CKD) >90 (>60 ml/min/1.73 sqM); Potassium 4.4 mmol/L (3.5-5.1); Sodium 145 mmol/L (137-145)
[2024-07-27 05:34] LABS: Glucose,Whole Blood 308 mg/dL (70-110)
[2024-07-27 05:56] LABS: Glucose,Whole Blood 250 mg/dL (70-110)
[2024-07-27] MEDS: D5-0.45% NACL WITH KCL 20MEQ/L 1,000 ML IV SCH (06:20)
[2024-07-27 06:55] LABS: Glucose,Whole Blood 207 mg/dL (70-110)
[2024-07-27 08:08] LABS: Glucose,Whole Blood 176 mg/dL (70-110)
[2024-07-27] MEDS: PANTOPRAZOLE 40 MG/10 ML VIAL IV SCH (08:29)
[2024-07-27] MEDS ORDERED: PANTOPRAZOLE 40 MG/10 ML VIAL IV SCH (09:00)
[2024-07-27 09:01] LABS: Glucose,Whole Blood 143 mg/dL (70-110)
[2024-07-27 09:21] LABS: African American GFR (CKD) >90 (>60 ml/min/1.73 sqM); Anion Gap 17 mmol/L; Blood Urea Nitrogen 25 mg/dL (9-20); Carbon Dioxide 21 mmol/L (22-30); Chloride 104 mmol/L (98-107); Glucose 151 mg/dL (74-99); Non-African American GFR(CKD) >90 (>60 ml/min/1.73 sqM); Potassium 4.5 mmol/L (3.5-5.1); Sodium 142 mmol/L (137-145)
[2024-07-27 10:13] LABS: Glucose,Whole Blood 174 mg/dL (70-110)
[2024-07-27 11:08] LABS: Glucose,Whole Blood 155 mg/dL (70-110)
[2024-07-27 12:06] LABS: Glucose,Whole Blood 136 mg/dL (70-110)
[2024-07-27 13:27] LABS: Glucose,Whole Blood 360 mg/dL (70-110)
[2024-07-27 13:33] LABS: ALT 27 U/L (4-49); AST 20 U/L (17-59); African American GFR (CKD) >90 (>60 ml/min/1.73 sqM); Albumin 3.9 g/dL (3.5-5.0); Alkaline Phosphatase 98 U/L (38-126); Anion Gap 9 mmol/L; Blood Urea Nitrogen 22 mg/dL (9-20); Calcium 8.2 mg/dL (8.4-10.2); Carbon Dioxide 24 mmol/L (22-30); Chloride 101 mmol/L (98-107); Glucose 213 mg/dL (74-99); Non-African American GFR(CKD) >90 (>60 ml/min/1.73 sqM); Phosphorus 2.8 mg/dL (2.5-4.5); Potassium 4.4 mmol/L (3.5-5.1); Sodium 134 mmol/L (137-145); Total Bilirubin 0.4 mg/dL (0.2-1.3); Total Protein 6.3 g/dL (6.3-8.2)
[2024-07-27 16:56] LABS: Glucose,Whole Blood 354 mg/dL (70-110)
[2024-07-27] MEDS: INSULIN LISPRO (HumaLOG) 100 UNIT/ML 10 mL VL SQ SCH (17:02)
[2024-07-27 18:33] LABS: Glucose,Whole Blood 325 mg/dL (70-110)
--- NOTE | 2024-07-27 19:59 | HP ---
HISTORY AND PHYSICAL CHIEF COMPLAINT: Diabetic ketoacidosis. HISTORY OF PRESENT ILLNESS: This is another admission for this 28-year-old white male, type 1 diabetic. He goes in and out of the hospital almost every 3 or 4 days now. He comes in, stating that he either forgot to take his insulin or there was some other problem. He came in again with a blood sugar over 600. REVIEW OF SYSTEMS: Unremarkable otherwise. He is dehydrated. He is slightly nauseated. Past medical history, family history, and personal and social histories are all otherwise unchanged. PHYSICAL EXAMINATION: VITAL SIGNS: Blood pressure is 123/86 with a pulse of 130, respirations were 38 and he is afebrile. GENERAL: He appeared to be dehydrated and lethargic. SKIN: Dry. HEAD, EARS, EYES, NOSE, MOUTH AND THROAT: Normal. CHEST: Clear. CARDIAC: Demonstrated tachycardia. ABDOMEN: Soft, nontender. EXTREMITIES: Normal. IMPRESSION: 1. Diabetic ketoacidosis. 2. Tachycardia. 3. Noncompliant patient. 4. Type 1 insulin-dependent diabetes mellitus. 5. Depression. PLAN: 1. Bedrest. 2. DKA protocol. 3. Rehydrate. 4. Antiemetics. MMODL / IJN: [id number] /
[2024-07-27 21:32] LABS: Glucose,Whole Blood 264 mg/dL (70-110)
[2024-07-28 00:27] LABS: Glucose,Whole Blood 360 mg/dL (70-110)
[2024-07-28 02:26] LABS: Glucose,Whole Blood 255 mg/dL (70-110)
[2024-07-28 07:47] LABS: Glucose,Whole Blood 310 mg/dL (70-110)
[2024-07-28 09:26] LABS: Basophils # (A) 0.1 k/uL (0-0.2); Basophils % (A) 1 %; Eosinophils # (A) 0.2 k/uL (0-0.7); Eosinophils % (A) 2 %; HCT 40.2 % (39.0-53.0); HGB 12.5 gm/dL (13.0-17.5); Hypochromasia Slight; Lymphocytes # (A) 2.7 k/uL (1.0-4.8); Lymphocytes % (A) 24 %; MCH 27.5 pg (25.0-35.0); MCHC 31.1 g/dL (31.0-37.0); Mean Platelet Volume 6.3; Monocytes # (A) 0.5 k/uL (0-1.0); Monocytes % (A) 5 %; Neutrophils # (A) 7.8 k/uL (1.3-7.7); Neutrophils % (A) 68 %; Platelet Count 391 k/uL (150-450); RBC 4.54 m/uL (4.30-5.90); RDW 15.5 % (11.5-15.5); WBC 11.4 k/uL (3.8-10.6)
[2024-07-28 09:31] LABS: ALT 25 U/L (4-49); AST 21 U/L (17-59); African American GFR (CKD) >90 (>60 ml/min/1.73 sqM); Albumin 3.8 g/dL (3.5-5.0); Alkaline Phosphatase 90 U/L (38-126); Anion Gap 15 mmol/L; Blood Urea Nitrogen 10 mg/dL (9-20); Calcium 8.3 mg/dL (8.4-10.2); Carbon Dioxide 20 mmol/L (22-30); Chloride 93 mmol/L (98-107); Glucose 290 mg/dL (74-99); Magnesium 1.6 mg/dL (1.6-2.3); Non-African American GFR(CKD) >90 (>60 ml/min/1.73 sqM); Phosphorus 2.5 mg/dL (2.5-4.5); Potassium 4.5 mmol/L (3.5-5.1); Sodium 128 mmol/L (137-145); Total Bilirubin 0.7 mg/dL (0.2-1.3); Total Protein 6.2 g/dL (6.3-8.2)
[2024-07-28 09:50] LABS: MCV 88.5 fL (80.0-100.0)
--- NOTE | 2024-07-28 11:49 | P.PN ---
Subjective Progress Note Date: 07/28/24 Patient is a 28-year-old white male with history of type 1 diabetes melitis and medication noncompliance. He has had numerous hospital admissions for DKA, and was recently discharged on July 18 for the same. Patient present emergency department early this morning. States he last took his insulin yesterday morning. His blood sugars were reading high while at home. Followed by nausea and vomiting. Denies hematemesis. Denies abdominal pain, diarrhea. Denies sick contacts. Denies infectious-like symptoms. Labs consistent with DKA on arrival. Blood glucose 709, serum bicarb less than 5, anion gap unmeasurable. Urine ketone positive. VBG with a pH of 7.21 and pCO2 of 20. He is admitted with diabetic ketoacidosis and started on the DKA protocol. Patient currently being evaluated in the emergency department as a ICU hold. Remainder of workup in the ER including a CBC with a WBC count of 9.6, hemoglobin 12.3, platelets 458. CMP: Sodium 134, potassium 5.1, chloride 95, serum bicarb less than 5, anion gap unmeasurable, BUN 25, creatinine 1, glucose 709. Lactic 3.7. Magnesium 2. LFTs not elevated. Troponin less than 0.012. Urinalysis unremarkable for infection, glucose and ketone positive. Patient currently being evaluated in the emergency department. He is lethargic. Awakens and answers questions appropriately. Remains tachycardic, with heart rate of 122 bpm. Abdias cha. Continues on DKA protocol, insulin infusing at 6 units/h. Normal saline infusing at 200 mL/h. Most recent lycpj-ut-wles glucose still greater than 600 g/dL. The patient is seen today July 28, 2024 in follow-up in the emergency department. He is currently resting in bed. Awake and alert in no acute distress. Maintaining good O2 saturations in the 90s on room air. He is afebrile. Hemodynamically stable. White count 11.4. Hemoglobin 12.5. Platelets 391. Sodium 128. Potassium 4.5. Bicarb 28. Anion gap 15. BUN 10. Creatinine 0.63. Glucose 290. He is currently on a Humalog sliding scale. Objective - Vital Signs Vital signs: Vital Signs Temp 98.0 F 07/28/24 06:16 Pulse 85 07/28/24 06:16 Resp 17 07/28/24 06:16 BP 110/71 07/28/24 06:16 Pulse Ox 99 07/28/24 06:16 FiO2 Intake & Output 07/27/24 07/28/24 07/28/24 18:59 06:59 18:59 Intake Total 21.789 Balance 21.789 Weight 58.967 kg Intake: Intake, IV Titration 21.789 Amount Insulin Regular 100 unit 21.789 In Sodium Chloride 0.9% 100 ml @ 0.1 UNITS/KG/HR 5.956 mls/hr IV .[id number] [facility] Rx#:[id number] - Exam GENERAL EXAM: Alert, thin 28-year-old male, on room air, fairly comfortable in no apparent distress. HEAD: Normocephalic. EYES: Normal reaction of pupils, equal size. NOSE: Clear with pink turbinates. THROAT: No erythema or exudates. NECK: No masses, no JVD. CHEST: No chest wall deformity. LUNGS: Equal air entry with no crackles, wheeze, rhonchi or dullness. CVS: S1 and S2 normal with no audible murmur, regular rhythm. ABDOMEN: No hepatosplenomegaly, normal bowel sounds, no guarding or rigidity. SPINE: No scoliosis or deformity SKIN: No rashes CENTRAL NERVOUS SYSTEM: No focal deficits, tone is normal in all 4 extremities. EXTREMITIES: There is no peripheral edema. No clubbing, no cyanosis. Perip heral pulses are intact. - Labs CBC & Chem 7: 07/28/24 08:47 07/28/24 08:47 Labs: Abnormal Lab Results - Last 24 Hours (Table) 07/27/24 07/27/24 07/27/24 Range/Units 12:04 12:36 13:26 WBC (3.8-10.6) k/uL Hgb (13.0-17.5) gm/dL Neutrophils # (1.3-7.7) k/uL Sodium 134 L (137-145) mmol/L Chloride (98-107) mmol/L Carbon Dioxide (22-30) mmol/L BUN 22 H (9-20) mg/dL Creatinine (0.66-1.25) mg/dL Glucose 213 H (74-99) mg/dL POC Glucose (mg/dL) 136 H 360 H (70-110) mg/dL Calcium 8.2 L (8.4-10.2) mg/dL Total Protein (6.3-8.2) g/dL 07/27/24 07/27/24 07/27/24 Range/Units 16:55 18:32 21:30 WBC (3.8-10.6) k/uL Hgb (13.0-17.5) gm/dL Neutrophils # (1.3-7.7) k/uL Sodium (137-145) mmol/L Chloride (98-107) mmol/L Carbon Dioxide (22-30) mmol/L BUN (9-20) mg/dL Creatinine (0.66-1.25) mg/dL Glucose (74-99) mg/dL POC Glucose (mg/dL) 354 H 325 H 264 H (70-110) mg/dL Calcium (8.4-10.2) mg/dL Total Protein (6.3-8.2) g/dL 07/28/24 07/28/24 07/28/24 Range/Units 00:26 02:24 07:46 WBC (3.8-10.6) k/uL Hgb (13.0-17.5) gm/dL Neutrophils # (1.3-7.7) k/uL Sodium (137-145) mmol/L Chloride (98-107) mmol/L Carbon Dioxide (22-30) mmol/L BUN (9-20) mg/dL Creatinine (0.66-1.25) mg/dL Glucose (74-99) mg/dL POC Glucose (mg/dL) 360 H 255 H 310 H (70-110) mg/dL Calcium (8.4-10.2) mg/dL Total Protein (6.3-8.2) g/dL 07/28/24 07/28/24 Range/Units 08:47 08:47 WBC 11.4 H (3.8-10.6) k/uL Hgb 12.5 L (13.0-17.5) gm/dL Neutrophils # 7.8 H (1.3-7.7) k/uL Sodium 128 L (137-145) mmol/L Chloride 93 L (98-107) mmol/L Carbon Dioxide 20 L (22-30) mmol/L BUN (9-20) mg/dL Creatinine 0.63 L (0.66-1.25) mg/dL Glucose 290 H (74-99) mg/dL POC Glucose (mg/dL) (70-110) mg/dL Calcium 8.3 L (8.4-10.2) mg/dL Total Protein 6.2 L (6.3-8.2) g/dL Assessment and Plan Assessment: Acute diabetic ketoacidosis, secondary to medication noncompliance. Patient has had numerous hospital admissions for DKA. Severe anion gap metabolic acidosis, secondary to above, improved Severe dehydration, improving Type 1 diabetes mellitus, with poor medication compliance Diabetic neuropathy History of gastritis History of major depression Plan: The patient was seen and evaluated Labs and medications reviewed Continued on Humalog sliding scale Insulin per medicine Protonix for GI prophylaxis Stable and on room air No need for ICU admission This patient was seen independently by the pulmonary nurse practitioner addressing pulmonary/critical care issues I have personally seen and examined the patient, performed the documentation and the assessment and plan as written. Number of minutes spent on the visit: 25 Dictation was produced using [employer] dictation software. Please excuse any grammatical, word or spelling errors.
[2024-07-28 12:40] LABS: Glucose,Whole Blood 425 mg/dL (70-110)
[2024-07-28] MEDS ORDERED: ONDANSETRON 4 MG/2 ML VIAL IVP PRN (13:38)
[2024-07-28] MEDS: DEXTROSE 5%-0.45% NACL 1,000 ML IV SCH (14:28)
[2024-07-28] MEDS: METOCLOPRAMIDE 5 MG/ML 2 ML VIAL IVP SCH (14:29)
--- NOTE | 2024-07-28 14:44 | PN ---
PROGRESS NOTE CHIEF COMPLAINT: Diabetic ketoacidosis. HISTORY OF PRESENT ILLNESS: This gentleman is having difficulty now with nausea and vomiting. His blood sugars come back up. Apparently, his intermediate and short-acting insulin orders did not come through yesterday. PHYSICAL EXAMINATION: GENERAL: He is dehydrated. CHEST: Clear. IMPRESSION: 1. Diabetic ketoacidosis. 2. Dehydration. PLAN: 1. Introduce IV fluids. 2. Introduce his basal bolus program plus sliding scale. MMODL / IJN: [id number] /
[2024-07-28] MEDS: INSULIN GLARGINE (LANTUS) 100 UNIT/ML SYR SQ SCH (16:19)
[2024-07-28 17:48] LABS: Glucose,Whole Blood 249 mg/dL (70-110)
[2024-07-28] MEDS: INSULIN LISPRO (HumaLOG) 100 UNIT/ML 10 mL VL SQ SCH (19:22)
[2024-07-28 19:51] LABS: Glucose,Whole Blood 135 mg/dL (70-110)
[2024-07-29 02:30] LABS: Glucose,Whole Blood 90 mg/dL (70-110)
[2024-07-29 06:01] LABS: Glucose,Whole Blood 87 mg/dL (70-110)
[2024-07-29 08:07] LABS: Glucose,Whole Blood 176 mg/dL (70-110)
[2024-07-29 08:45] VITALS: TEMP 97.8
[2024-07-29 09:06] LABS: Glucose,Whole Blood 274 mg/dL (70-110)
[2024-07-29 11:57] LABS: Glucose,Whole Blood 157 mg/dL (70-110)
[2024-07-29 12:04] VITALS: BMI 20.5
[2024-07-29 12:27] VITALS: BP 123/80; PULSE 95; RESP 17
--- NOTE | 2024-07-29 21:35 | DS ---
DISCHARGE SUMMARY CHIEF COMPLAINT: Diabetic ketoacidosis. HISTORY OF PRESENT ILLNESS AND PHYSICAL EXAMINATION: Details of this young man's history and physical can be found in the initial workup. LABORATORY STUDIES: While he was in the hospital, he had laboratory studies, details of which can be found in the laboratory section of his chart. COURSE IN THE HOSPITAL: After admission, he was placed on bedrest, started on intravenous fluids and DKA protocol. Sugars came down nicely. His nausea and vomiting stopped and he was anxious to be discharged on the 6th. FINAL DIAGNOSES: 1. Diabetic ketoacidosis. 2. Dehydration. 3. Depression. 4. Type 1 insulin-dependent diabetes mellitus. OPERATIONS: None. CONSULTATIONS: None. He is improved. MMODL / IJN: [id number] /
== END 2024-07-29 12:56 | disposition home or self-care (01) | DRG 420 ==
LOC: EC 00:28 → 2SICU 01:54 → 1SOBS 13:53 → 3SCARD 17:04
PROVIDERS: ADMIT Family Medicine; ATTEND Family Medicine
DX: E10.10 Type 1 diabetes mellitus with ketoacidosis without coma (principal); E10.42 Type 1 diabetes mellitus with diabetic polyneuropathy; F32.A Depression, unspecified; F32.9 Major depressive disorder, single episode, unspecified; F17.210 Nicotine dependence, cigarettes, uncomplicated; E86.0 Dehydration; R00.0 Tachycardia, unspecified; T38.3X6A Underdosing of insulin and oral hypoglycemic [antidiabetic] drugs, initial encounter; Z79.4 Long term (current) use of insulin; Z91.148 Patient's other noncompliance with medication regimen for other reason
CPT/HCPCS: 36415; 80051; 80053; 81003; 82009; 82565; 82803; 82947; 83605; 83735; 84100; 84484; 84520; 85025; 85610; 85730; 93005; 96361; 96374; 96375; 96376; 99285

== ENCOUNTER 2024-08-04 12:08 | Inpatient (IN) | payer OTHER ==
--- NOTE | 2024-08-04 12:41 | ED ---
General Adult HPI - General Chief complaint: Nausea/Vomiting/Diarrhea Stated complaint: hyperglycemia Time Seen by Provider: 08/04/24 12:09 Source: patient Mode of arrival: ambulatory Limitations: no limitations - History of Present Illness Initial comments: Dictation was produced using [employer] dictation software. please excuse any grammatical, word or spelling errors. Chief Complaint: 19-cohx-jeo-year-old insulin-dependent diabetic presents to the ER for altered mental status nausea vomiting History of Present Illness: Patient 28-year-old male he is well-known to the emergency department for multitude of admissions for DKA. Patient brought in by EMS from home for usual altered mental status, malaise and hyperglycemia. Patient unable to provide history of present illness at this time due to mental status. Unable to obtain ROS secondary mental status - Related Data Home Medications Medication Instructions Recorded Confirmed INSULIN LISPRO (humaLOG) [humaLOG] 7 units SQ AC-TID 06/20/24 08/04/24 Insulin Glargine (Lantus) [Lantus 25 unit SQ DAILY 06/20/24 08/04/24 Vial] Allergies Allergy/AdvReac Type Severity Reaction Status Date / Time No Known Allergies Allergy Verified 08/04/24 14:24 Review of Systems ROS Statement: Those systems with pertinent positive or pertinent negative responses have been documented in the HPI. ROS Other: All systems not noted in ROS Statement are negative. Past Medical History Past Medical History: Asthma, Diabetes Mellitus, Neurologic Disorder, Skin Disorder Additional Past Medical History / Comment(s): IDDM type I, neuropathy bilateral feet, DKA, eczema,gastritis History of Any Multi-Drug Resistant Organisms: None Reported Past Surgical History: Adenoidectomy Additional Past Surgical History / Comment(s): gastritis Past Anesthesia/Blood Transfusion Reactions: No Reported Reaction Past Psychological History: Anxiety, Depression Smoking Status: Current every day smoker Past Alcohol Use History: None Reported Past Drug Use History: Marijuana - Past Family History Mother Family Medical History: CVA/TIA Additional Family Medical History / Comment(s): TIA Father Family Medical History: Hyperlipidemia, Hypertension Additional Family Medical History / Comment(s): . General Exam - General Exam Comments Initial Comments: PHYSICAL EXAM: General Impression: Lethargic, smells of acetone HEENT: Normocephalic atraumatic, extra-ocular movements intact, pupils equal and reactive to light bilaterally, membranes Cardiovascular: Heart regular rate and rhythm Chest: Able to complete full sentences, no retractions, no tachypnea Abdomen: abdomen soft, non-tender, non-distended, no organomegaly Musculoskeletal: Pulses present and equal in all extremities, no peripheral edema poor cap refill Motor: no focal deficits noted Neurological: CN II-XII grossly intact, no focal motor or sensory deficits noted Skin: Intact with no visualized rashes Limitations: no limitations Course Vital Signs 08/04/24 08/04/24 08/04/24 12:10 12:21 13:00 Temperature 97.6 F Pulse Rate 125 H 125 H 130 H Respiratory 23 24 24 Rate Blood Pressure 124/91 124/91 107/64 O2 Sat by Pulse 100 99 99 Oximetry Medical Decision Making - Medical Decision Making Was pt. sent in by a medical professional or institution (, PA, GLUELINE WORKER, urgent care, hospital, or [place] health [place] facility...) When possible be specific @ -No Did you speak to anyone other than the patient for history (EMS, parent, family, police, friend...)? What history was obtained from this source @ -AMS as described above Did you review nursing and triage notes (agree or disagree)? Why? @ -I reviewed and agree with nursing and triage notes Were old charts reviewed (outside hosp., previous admission, EMS record, old EKG, old radiological studies, urgent care reports/EKG's, [place] health care facility records)? Report findings @ -No old charts were reviewed Differential Diagnosis (chest pain, altered mental status, abdominal pain women, abdominal pain men, vaginal bleeding, musculoskeletal, weakness, fever, dyspnea, syncope, headache, dizziness, GI bleed, back pain, seizure, CVA, palpatations, mental health)? @ -Differential Altered Mental Status: Hypoglycemia, DKA, hypercapnia, ETOH, overdose, CO poisoning, trauma, myxedema coma, HTN encephalopathy, infection, encephalitis, psychosis, intercranial hemorrhage, hepatic encephalopathy, meningitis, CVA, this is not meant to be an all-inclusive list EKG interpreted by me (3pts min.). @ -None done X-rays interpreted by me (1pt min.). @ -None done CT interpreted by me (1pt min.). @ -None done U/S interpreted by me (1pt. min.). @ -None done What testing was considered but not performed or refused? (CT, X-rays, U/S, labs)? Why? @ -None What meds were considered but not given or refused? Why? @ -None Was smoking cessation discussed for >3mins.? @ -No Were there social determinants of health that impacted care today? How? (Homelessness, low income, unemployed, alcoholism, drug addiction, transportation, low edu. Level, literacy, decrease access to med. care, detention, rehab)? @ -Medication noncompliance Was there de-escalation of care discussed even if they declined (Discuss DNR or withdrawal of care, Hospice)? DNR status @ -No What co-morbidities impacted this encounter? (DM, HTN, Smoking, COPD, CAD, Cancer, CVA, ARF, Chemo, Hep., AIDS, mental health diagnosis, sleep apnea, morbid obesity)? @ -Insulin-dependent diabetes Was patient admitted / discharged? Hospital course, mention meds given and route, prescriptions, significant lab abnormalities, going to OR and other pertinent info. @ -28-year-old male presents yet again for DKA. Vital signs upon arrival shows tachycardia 125, rest of vital signs within acceptable limits. Laboratory evaluation obtained. Venous pH of 7.14 with bicarb of 8. Blood glucose 733. Acetone positive. Patient started on DKA order set. Will be admitted to ICU. Case discussed with rope twisting machine operator along with Dr. Valenzuela for admission Did you discuss the management of the patient with other professionals (professionals i.e. , PA, GLUELINE WORKER, lab, RT, psych nurse, psych social worker, banking specialist, teacher, correction officer head, corrections caseworker)? Give summary @ -As above Was critical care preformed (if so, how long)? @ -Yes, 33 minutes Undiagnosed new problem with uncertain prognosis? @ -No Drug Therapy requiring intensive monitoring for toxicity (Heparin, Nitro, Insulin, Cardizem)? @ -No Were any procedures done? @ -No Diagnosis/symptom? Acute, or Chronic, or Acute on Chronic? Uncomplicated (without systemic symptoms) or Complicated (systemic symptoms)? @ -Diabetic ketoacidosis Side effects of treatment? @ -No Exacerbation, Progression, or Severe Exacerbation? @ -No Poses a threat to life or bodily function? How? (Chest pain, [place], ND, pneumonia, PE, COPD, DKA, ARF, appy, cholecystitis, CVA, Diverticulitis, Homicidal, Suicidal, threat to staff... and all critical care pts) @ -yes - Lab Data Result diagrams: 08/04/24 12:30 08/04/24 12:30 Lab Results 08/04/24 08/04/24 08/04/24 Range/Units 12:30 12:30 12:30 WBC 12.3 H (3.8-10.6) k/uL RBC 4.59 (4.30-5.90) m/uL Hgb 12.4 L (13.0-17.5) gm/dL Hct 44.1 (39.0-53.0) % MCV 96.0 D (80.0-100.0) fL MCH 27.1 (25.0-35.0) pg MCHC 28.2 L (31.0-37.0) g/dL RDW 15.8 H (11.5-15.5) % Plt Count 441 (150-450) k/uL MPV 7.6 Neutrophils % 76 % Lymphocytes % 20 % Monocytes % 3 % Eosinophils % 0 % Basophils % 0 % Neutrophils # 9.3 H (1.3-7.7) k/uL Lymphocytes # 2.4 (1.0-4.8) k/uL Monocytes # 0.3 (0-1.0) k/uL Eosinophils # 0.0 (0-0.7) k/uL Basophils # 0.0 (0-0.2) k/uL Hypochromasia Marked VBG pH (7.31-7.41) VBG pCO2 (37-51) mmHg VBG HCO3 (24-28) mmol/L Sodium 136 L (137-145) mmol/L Potassium 5.5 H (3.5-5.1) mmol/L Chloride 96 L (98-107) mmol/L Carbon Dioxide <5 L* (22-30) mmol/L Anion Gap mmol/L BUN 23 H (9-20) mg/dL Creatinine 0.97 (0.66-1.25) mg/dL Est GFR (CKD-EPI)AfAm >90 (>60 ml/min/1.73 sqM) Est GFR (CKD-EPI)NonAf >90 (>60 ml/min/1.73 sqM) Glucose 733 H* (74-99) mg/dL Plasma Lactic Acid Len 4.8 H* (0.7-2.0) mmol/L Calcium 9.3 (8.4-10.2) mg/dL Magnesium 2.1 (1.6-2.3) mg/dL Total Bilirubin 0.8 (0.2-1.3) mg/dL AST 31 (17-59) U/L ALT 25 (4-49) U/L Alkaline Phosphatase 117 (38-126) U/L Total Protein 7.0 (6.3-8.2) g/dL Albumin 4.7 (3.5-5.0) g/dL Acetone, Qual Positive (Negative) 08/04/24 Range/Units 12:30 WBC (3.8-10.6) k/uL RBC (4.30-5.90) m/uL Hgb (13.0-17.5) gm/dL Hct (39.0-53.0) % MCV (80.0-100.0) fL MCH (25.0-35.0) pg MCHC (31.0-37.0) g/dL RDW (11.5-15.5) % Plt Count (150-450) k/uL MPV Neutrophils % % Lymphocytes % % Monocytes % % Eosinophils % % Basophils % % Neutrophils # (1.3-7.7) k/uL Lymphocytes # (1.0-4.8) k/uL Monocytes # (0-1.0) k/uL Eosinophils # (0-0.7) k/uL Basophils # (0-0.2) k/uL Hypochromasia VBG pH 7.14 L* (7.31-7.41) VBG pCO2 23 L (37-51) mmHg VBG HCO3 8 L* (24-28) mmol/L Sodium (137-145) mmol/L Potassium (3.5-5.1) mmol/L Chloride (98-107) mmol/L Carbon Dioxide (22-30) mmol/L Anion Gap mmol/L BUN (9-20) mg/dL Creatinine (0.66-1.25) mg/dL Est GFR (CKD-EPI)AfAm (>60 ml/min/1.73 sqM) Est GFR (CKD-EPI)NonAf (>60 ml/min/1.73 sqM) Glucose (74-99) mg/dL Plasma Lactic Acid Len (0.7-2.0) mmol/L Calcium (8.4-10.2) mg/dL Magnesium (1.6-2.3) mg/dL Total Bilirubin (0.2-1.3) mg/dL AST (17-59) U/L ALT (4-49) U/L Alkaline Phosphatase (38-126) U/L Total Protein (6.3-8.2) g/dL Albumin (3.5-5.0) g/dL Acetone, Qual (Negative) Disposition Clinical Impression: DKA (diabetic ketoacidosis) Disposition: ADMITTED IP TO THIS [facility] Condition: Critical Referrals: Brown Valenzuela MD [Primary Care Provider] - 1-2 days Decision Time: 14:36
[2024-08-04 12:43] LABS: Basophils % (A) 0 %; Eosinophils % (A) 0 %; HCT 44.1 % (39.0-53.0); HGB 12.4 gm/dL (13.0-17.5); Hypochromasia Marked; Lymphocytes # (A) 2.4 k/uL (1.0-4.8); Lymphocytes % (A) 20 %; MCH 27.1 pg (25.0-35.0); MCHC 28.2 g/dL (31.0-37.0); Mean Platelet Volume 7.6; Monocytes # (A) 0.3 k/uL (0-1.0); Monocytes % (A) 3 %; Neutrophils # (A) 9.3 k/uL (1.3-7.7); Neutrophils % (A) 76 %; Platelet Count 441 k/uL (150-450); RBC 4.59 m/uL (4.30-5.90); RDW 15.8 % (11.5-15.5); WBC 12.3 k/uL (3.8-10.6)
[2024-08-04 13:00] LABS: VBG PH 7.14 (7.31-7.41)
[2024-08-04] MEDS: SODIUM CHLORIDE 0.9% 1,000 ML IV STA (13:02)
[2024-08-04] MEDS: ONDANSETRON 4 MG/2 ML VIAL IVP STA (13:02)
[2024-08-04 13:21] LABS: ALT 25 U/L (4-49); AST 31 U/L (17-59); African American GFR (CKD) >90 (>60 ml/min/1.73 sqM); Albumin 4.7 g/dL (3.5-5.0); Alkaline Phosphatase 117 U/L (38-126); Blood Urea Nitrogen 23 mg/dL (9-20); Calcium 9.3 mg/dL (8.4-10.2); Chloride 96 mmol/L (98-107); Magnesium 2.1 mg/dL (1.6-2.3); Non-African American GFR(CKD) >90 (>60 ml/min/1.73 sqM); Potassium 5.5 mmol/L (3.5-5.1); Sodium 136 mmol/L (137-145); Total Bilirubin 0.8 mg/dL (0.2-1.3)
[2024-08-04 13:33] LABS: Glucose 733 mg/dL (74-99)
[2024-08-04 13:34] LABS: Carbon Dioxide <5 mmol/L (22-30)
[2024-08-04] MEDS ORDERED: DEXTROSE 50% SYRINGE 50 ML IVP PRN ×2 (13:45)
[2024-08-04] MEDS ORDERED: Magnesium Replacement Protocol 1 EACH MISC MISCELLANE PRN (13:45)
[2024-08-04] MEDS ORDERED: Potassium Replacement Protocol 1 EACH MISC MISCELLANE PRN (13:45)
[2024-08-04] MEDS: SODIUM CHLORIDE 0.9% 1,000 ML IV SCH (14:11)
[2024-08-04] MEDS: INSULIN REGULAR BOLUS (FROM DRIP BAG) IV ONE (14:29)
[2024-08-04] MEDS: INSULIN REGULAR 100 UNIT in SODIUM CHLORIDE 0.9% 100 ML IV SCH (14:31)
[2024-08-04] MEDS ORDERED: NALOXONE 0.4 MG/ML 1 ML VIAL IV PRN (14:33)
[2024-08-04 15:26] LABS: Glucose,Whole Blood >600 mg/dL (70-110)
[2024-08-04 16:43] LABS: African American GFR (CKD) >90 (>60 ml/min/1.73 sqM); Anion Gap 32 mmol/L; Blood Urea Nitrogen 24 mg/dL (9-20); Chloride 104 mmol/L (98-107); Non-African American GFR(CKD) >90 (>60 ml/min/1.73 sqM); Potassium 4.8 mmol/L (3.5-5.1); Sodium 141 mmol/L (137-145)
[2024-08-04 16:47] LABS: Glucose,Whole Blood 368 mg/dL (70-110)
[2024-08-04 17:04] LABS: Carbon Dioxide 5 mmol/L (22-30); Glucose 568 mg/dL (74-99)
[2024-08-04 18:08] LABS: Glucose,Whole Blood 184 mg/dL (70-110)
--- NOTE | 2024-08-04 18:21 | P.CNPUL ---
History of Present Illness Consult date: 08/04/24 History of present illness: 28-year-old male patient, type I diabetic presenting with DKA. Serum bicarb is 5 with anion gap of 32. Blood sugar is above 600. Sodium levels at 141. White cell count is at 4.3, hemoglobin of 12.4 and a platelet count of 441. He is in sinus tachycardia with a heart rate of 124. Respirations of 24. Hemodynamically stable. He is on room air oxygen. Given IV fluids, 2 L bolus in the emergency room currently on normal citrate of 200 cc an hour. Insulin drip was started at 0.1 units/kg after being given a bolus of 7 units.The joe ent presented with some altered mentation, generalized fatigue and malaise. Multiple admissions for DKA, last admission was on 07/27/2024 for the same. Review of Systems Constitutional: Reports fatigue, Denies chills, Denies fever, Denies weight g ain, Denies weight loss Ears, nose, mouth and throat: Denies headache, Denies nasal congestion, Denies nasal discharge, Denies post-nasal drip, Denies sinus pain, Denies sinus pressure, Denies sore throat Cardiovascular: Denies chest pain, Denies irregular heart beat, Denies orthopnea, Denies palpitations, Denies paroxysmal nocturnal dyspnea, Denies shortness of breath, Denies syncope Respiratory: Denies congestion, Denies cough, Denies cough with sputum, Denies dyspnea, Denies respiratory infections Gastrointestinal: Reports nausea, Reports vomiting, Denies abdominal pain, Denies change in bowel habits, Denies coffee ground emesis, Denies constipation, Denies diarrhea Genitourinary: Denies dysuria, Denies flank pain, Denies urinary frequency Musculoskeletal: Denies limitation of motion Integumentary: Denies rash Neurological: Denies confusion, Denies headaches, Denies memory loss, Denies seizures, Denies visual changes Psychiatric: Denies anxiety, Denies depression Endocrine: Reports high blood sugars, Reports polydipsia, Reports polyuria Past Medical History Past Medical History: Asthma, Diabetes Mellitus, Neurologic Disorder, Skin Disorder Additional Past Medical History / Comment(s): IDDM type I, neuropathy bilateral feet, DKA, eczema,gastritis History of Any Multi-Drug Resistant Organisms: None Reported Past Surgical History: Adenoidectomy Additional Past Surgical History / Comment(s): gastritis Past Anesthesia/Blood Transfusion Reactions: No Reported Reaction Past Psychological History: Anxiety, Depression Smoking Status: Current every day smoker Past Alcohol Use History: None Reported Past Drug Use History: Marijuana - Past Family History Mother Family Medical History: CVA/TIA Additional Family Medical History / Comment(s): TIA Father Family Medical History: Hyperlipidemia, Hypertension Additional Family Medical History / Comment(s): . Medications and Allergies Home Medications Medication Instructions Recorded Confirmed Type INSULIN LISPRO (humaLOG) [humaLOG] 7 units SQ AC-TID 06/20/24 08/04/24 History Insulin Glargine (Lantus) [Lantus 25 unit SQ DAILY 06/20/24 08/04/24 History Vial] Allergies Allergy/AdvReac Type Severity Reaction Status Date / Time No Known Allergies Allergy Verified 08/04/24 14:24 Physical Exam Vitals: Vital Signs Temp Pulse Pulse Resp BP Pulse Ox 08/04/24 15:51 125 H 24 08/04/24 15:00 98.2 F 124 H 22 116/68 08/04/24 14:00 98.2 F 131 H 23 117/71 08/04/24 13:00 130 H 24 107/64 99 08/04/24 12:21 125 H 24 124/91 99 08/04/24 12:10 97.6 F 125 H 23 124/91 100 Intake and Output 08/04/24 08/04/24 08/04/24 06:59 14:59 22:59 Intake Total 23.937 Output Total 300 220 Balance -300 -196.063 Intake: Intake, IV Titration 23.937 Amount Insulin Regular 100 unit 23.937 In Sodium Chloride 0.9% 100 ml @ 0.1 UNITS/KG/HR 6.872 mls/hr IV .[id number] [facility] Rx#:[id number] Output: Urine 300 220 Other: Weight 68.039 kg GENERAL EXAM: Lethargic, 28-year-old male, disheveled, rapid deep breathing, tachycardic. HEAD: Normocephalic and atraumatic EYES: Normal reaction of pupils, equal size. NOSE: Clear with pink turbinates. THROAT: No erythema or exudates. NECK: No masses, no JVD. CHEST: No chest wall deformity. LUNGS: Equal air entry with no crackles, wheeze, rhonchi or dullness. On room air. No conversational dyspnea or accessory muscle use.. CVS: S1 and S2 normal with no audible murmur, regular rhythm. No extra heart sounds ABDOMEN: No hepatosplenomegaly, active bowel sounds, no guarding or rigidity. SPINE: No scoliosis or deformity SKIN: No rashes CENTRAL NERVOUS SYSTEM: No focal deficits, tone is normal in all 4 extremities. EXTREMITIES: There is no peripheral edema, clubbing, or cyanosis. Peripheral pulses are intact. Results - Laboratory Findings CBC and BMP: 08/04/24 12:30 08/04/24 15:50 Abnormal lab findings: Abnormal Labs 08/04/24 08/04/24 08/04/24 12: 12: 12:30 WBC 12.3 H Hgb 12.4 L MCHC 28.2 L RDW 15.8 H Neutrophils # 9.3 H VBG pH VBG pCO2 VBG HCO3 Sodium 136 L Potassium 5.5 H Chloride 96 L Carbon Dioxide <5 L* BUN 23 H Glucose 733 H* POC Glucose (mg/dL) Plasma Lactic Acid Len 4.8 H* Phosphorus 08/04/24 08/04/24 08/04/24 12:30 15:25 15:50 WBC Hgb MCHC RDW Neutrophils # VBG pH 7.14 L* VBG pCO2 23 L VBG HCO3 8 L* Sodium Potassium Chloride Carbon Dioxide BUN Glucose POC Glucose (mg/dL) >600 H* Plasma Lactic Acid Len Phosphorus 5.3 H 08/04/24 08/04/24 08/04/24 15:50 15:50 16:45 WBC Hgb MCHC RDW Neutrophils # VBG pH VBG pCO2 VBG HCO3 Sodium Potassium Chloride Carbon Dioxide 5 L* BUN 24 H Glucose 568 H* POC Glucose (mg/dL) 368 H Plasma Lactic Acid Len 3.6 H* Phosphorus 08/04/24 18:04 WBC Hgb MCHC RDW Neutrophils # VBG pH VBG pCO2 VBG HCO3 Sodium Potassium Chloride Carbon Dioxide BUN Glucose POC Glucose (mg/dL) 184 H Plasma Lactic Acid Len Phosphorus Assessment and Plan Plan: Acute diabetic ketoacidosis, secondary to medication noncompliance. Patient has had numerous hospital admissions for DKA. Severe anion gap metabolic acidosis, secondary to above Severe dehydration Type 1 diabetes mellitus, with poor medication compliance Diabetic neuropathy History of gastritis History of major depression Plan: Patient currently seen in the emergency department as an ICU hold. Continue on DKA protocol Continue electrolyte checks every 4 hours Continue on IV insulin per protocol Patient educated on the importance of diabetic medication compliance GI prophylaxis with Protonix Patient will be admitted to the intensive care unit once bed available
[2024-08-04] MEDS: D5-0.45% NACL WITH KCL 20MEQ/L 1,000 ML IV SCH (18:30)
[2024-08-04 18:56] LABS: Glucose,Whole Blood 143 mg/dL (70-110)
[2024-08-04 20:09] LABS: Glucose,Whole Blood 131 mg/dL (70-110)
[2024-08-04 20:22] LABS: African American GFR (CKD) >90 (>60 ml/min/1.73 sqM); Anion Gap 19 mmol/L; Blood Urea Nitrogen 24 mg/dL (9-20); Carbon Dioxide 16 mmol/L (22-30); Chloride 111 mmol/L (98-107); Glucose 144 mg/dL (74-99); Non-African American GFR(CKD) >90 (>60 ml/min/1.73 sqM); Potassium 4.4 mmol/L (3.5-5.1); Sodium 146 mmol/L (137-145)
[2024-08-04 21:00] LABS: Glucose,Whole Blood 130 mg/dL (70-110)
[2024-08-04 22:07] LABS: Glucose,Whole Blood 195 mg/dL (70-110)
[2024-08-04 23:06] LABS: Glucose,Whole Blood 355 mg/dL (70-110)
[2024-08-05 00:01] LABS: Glucose,Whole Blood 317 mg/dL (70-110)
[2024-08-05 00:56] LABS: African American GFR (CKD) >90 (>60 ml/min/1.73 sqM); Anion Gap 26 mmol/L; Blood Urea Nitrogen 23 mg/dL (9-20); Calcium 9.3 mg/dL (8.4-10.2); Carbon Dioxide 10 mmol/L (22-30); Chloride 107 mmol/L (98-107); Glucose 353 mg/dL (74-99); Non-African American GFR(CKD) >90 (>60 ml/min/1.73 sqM); Potassium 4.5 mmol/L (3.5-5.1); Sodium 143 mmol/L (137-145)
[2024-08-05] MEDS: ONDANSETRON 4 MG/2 ML VIAL IVP PRN (01:17)
[2024-08-05 01:19] LABS: Glucose,Whole Blood 204 mg/dL (70-110)
[2024-08-05] MEDS: ONDANSETRON 4 MG/2 ML VIAL IVP STA (01:45)
[2024-08-05 02:26] LABS: Glucose,Whole Blood 150 mg/dL (70-110)
[2024-08-05 03:19] LABS: Glucose,Whole Blood 190 mg/dL (70-110)
[2024-08-05 04:18] LABS: Glucose,Whole Blood 212 mg/dL (70-110)
[2024-08-05 05:29] LABS: Glucose,Whole Blood 252 mg/dL (70-110)
[2024-08-05 06:30] LABS: Glucose,Whole Blood 207 mg/dL (70-110)
[2024-08-05 06:56] LABS: African American GFR (CKD) >90 (>60 ml/min/1.73 sqM); Anion Gap 24 mmol/L; Blood Urea Nitrogen 20 mg/dL (9-20); Calcium 9.3 mg/dL (8.4-10.2); Carbon Dioxide 12 mmol/L (22-30); Chloride 107 mmol/L (98-107); Glucose 258 mg/dL (74-99); Non-African American GFR(CKD) >90 (>60 ml/min/1.73 sqM); Potassium 4.9 mmol/L (3.5-5.1); Sodium 143 mmol/L (137-145)
[2024-08-05 07:01] LABS: Glucose,Whole Blood 184 mg/dL (70-110)
[2024-08-05 07:54] LABS: Glucose,Whole Blood 165 mg/dL (70-110)
[2024-08-05 08:46] VITALS: BMI 17.5
[2024-08-05 08:57] LABS: Glucose,Whole Blood 143 mg/dL (70-110)
[2024-08-05 10:02] LABS: Glucose,Whole Blood 218 mg/dL (70-110)
[2024-08-05 11:05] LABS: Glucose,Whole Blood 221 mg/dL (70-110)
[2024-08-05 11:19] LABS: ALT 24 U/L (4-49); AST 20 U/L (17-59); African American GFR (CKD) >90 (>60 ml/min/1.73 sqM); Albumin 4.3 g/dL (3.5-5.0); Alkaline Phosphatase 104 U/L (38-126); Blood Urea Nitrogen 18 mg/dL (9-20); Calcium 9.2 mg/dL (8.4-10.2); Carbon Dioxide 16 mmol/L (22-30); Chloride 109 mmol/L (98-107); Glucose 255 mg/dL (74-99); Non-African American GFR(CKD) >90 (>60 ml/min/1.73 sqM); Phosphorus 2.6 mg/dL (2.5-4.5); Potassium 4.6 mmol/L (3.5-5.1); Total Bilirubin 0.6 mg/dL (0.2-1.3); Total Protein 6.8 g/dL (6.3-8.2)
[2024-08-05 12:07] LABS: Glucose,Whole Blood 210 mg/dL (70-110)
[2024-08-05 12:59] LABS: Anion Gap 18 mmol/L; Sodium 143 mmol/L (137-145)
[2024-08-05 13:13] LABS: Glucose,Whole Blood 201 mg/dL (70-110)
[2024-08-05 14:09] LABS: Glucose,Whole Blood 208 mg/dL (70-110)
[2024-08-05 15:11] LABS: Glucose,Whole Blood 239 mg/dL (70-110)
[2024-08-05 16:04] LABS: Glucose,Whole Blood 261 mg/dL (70-110)
[2024-08-05 17:04] LABS: Glucose,Whole Blood 277 mg/dL (70-110)
--- NOTE | 2024-08-05 17:45 | P.PN ---
Subjective Progress Note Date: 08/05/24 28-year-old male patient, type I diabetic presenting with DKA. Serum bicarb is 5 with anion gap of 32. Blood sugar is above 600. Sodium levels at 141. White cell count is at 4.3, hemoglobin of 12.4 and a platelet count of 441. He is in sinus tachycardia with a heart rate of 124. Respirations of 24. Hemodynamically stable. He is on room air oxygen. Given IV fluids, 2 L bolus in the emergency room currently on normal citrate of 200 cc an hour. Insulin drip was started at 0.1 units/kg after being given a bolus of 7 units.The patient presented with some altered mentation, generalized fatigue and malaise. Multiple admissions for DKA, last admission was on 07/27/2024 for the same. On 08/05/2024, the patient is being seen for a follow-up. The patient is still being treated for DKA. The patient was hospitalized yesterday and is currently being treated with the DKA protocol. The patient is currently on D5 half-normal saline at rate of 150 cc an hour. Remains on insulin drip at 1.17 units an hour. Most recent blood work and electrolytes showed an anion gap of 18. Serum bicarb is up to 16. Blood sugars at 255. The patient continues to have some mild sinus tachycardia which is improving. More awake. Having some nausea and dry heaves and the patient was offered Zofran. Awake and alert. Remains on room air oxygen. Objective - Vital Signs Vital signs: Vital Signs Temp 97.2 F L 08/05/24 08:00 Pulse 114 H 08/05/24 08:00 Resp 67 H 08/05/24 08:00 BP 132/93 08/05/24 08:00 Pulse Ox 99 08/05/24 08:00 FiO2 Intake & Output 08/04/24 08/05/24 08/05/24 18:59 06:59 18:59 Intake Total 23.937 776.688 300 Output Total 520 0 200 Balance -496.063 776.688 100 Weight 68.039 kg 63.7 kg 63.7 kg Intake: Intake, IV Titration 23.937 776.688 300 Amount D5-0.45% NaCl with KCl 750 300 20Meq/l 1,000 ml @ 150 mls/hr IV .[id number] [facility]EL Rx# :[id number] Insulin Regular 100 unit 23.937 26.688 In Sodium Chloride 0.9% 100 ml @ 0.1 UNITS/KG/HR 6.872 mls/hr IV .[id number] [facility]AEL Rx#:[id number] Output: Urine 520 0 200 Other: Voiding Method Urinal Urinal - Exam GENERAL EXAM: Lethargic, 28-year-old male, disheveled, rapid deep breathing, tachycardic. HEAD: Normocephalic and atraumatic EYES: Normal reaction of pupils, equal size. NOSE: Clear with pink turbinates. THROAT: No erythema or exudates. NECK: No masses, no JVD. CHEST: No chest wall deformity. LUNGS: Equal air entry with no crackles, wheeze, rhonchi or dullness. On room air. No conversational dyspnea or accessory muscle use.. CVS: S1 and S2 normal with no audible murmur, regular rhythm. No extra heart sounds ABDOMEN: No hepatosplenomegaly, active bowel sounds, no guarding or rigidity. SPINE: No scoliosis or deformity SKIN: No rashes CENTRAL NERVOUS SYSTEM: No focal deficits, tone is normal in all 4 extremities. EXTREMITIES: There is no peripheral edema, clubbing, or cyanosis. Peripheral pulses are intact. - Labs CBC & Chem 7: 08/04/24 12:30 08/05/24 10:41 Labs: Abnormal Lab Results - Last 24 Hours (Table) 08/04/24 08/04/24 08/04/24 Range/Units 12:30 12:30 12:30 WBC 12.3 H (3.8-10.6) k/uL Hgb 12.4 L (13.0-17.5) gm/dL MCHC 28.2 L (31.0-37.0) g/dL RDW 15.8 H (11.5-15.5) % Neutrophils # 9.3 H (1.3-7.7) k/uL VBG pH (7.31-7.41) VBG pCO2 (37-51) mmHg VBG HCO3 (24-28) mmol/L Sodium 136 L (137-145) mmol/L Potassium 5.5 H (3.5-5.1) mmol/L Chloride 96 L (98-107) mmol/L Carbon Dioxide <5 L* (22-30) mmol/L BUN 23 H (9-20) mg/dL Glucose 733 H* (74-99) mg/dL POC Glucose (mg/dL) (70-110) mg/dL Plasma Lactic Acid Len 4.8 H* (0.7-2.0) mmol/L Phosphorus (2.5-4.5) mg/dL 08/04/24 08/04/24 08/04/24 Range/Units 12:30 15:25 15:50 WBC (3.8-10.6) k/uL Hgb (13.0-17.5) gm/dL MCHC (31.0-37.0) g/dL RDW (11.5-15.5) % Neutrophils # (1.3-7.7) k/uL VBG pH 7.14 L* (7.31-7.41) VBG pCO2 23 L (37-51) mmHg VBG HCO3 8 L* (24-28) mmol/L Sodium (137-145) mmol/L Potassium (3.5-5.1) mmol/L Chloride (98-107) mmol/L Carbon Dioxide (22-30) mmol/L BUN (9-20) mg/dL Glucose (74-99) mg/dL POC Glucose (mg/dL) >600 H* (70-110) mg/dL Plasma Lactic Acid Len (0.7-2.0) mmol/L Phosphorus 5.3 H (2.5-4.5) mg/dL 08/04/24 08/04/24 08/04/24 Range/Units 15:50 15:50 16:45 WBC (3.8-10.6) k/uL Hgb (13.0-17.5) gm/dL MCHC (31.0-37.0) g/dL RDW (11.5-15.5) % Neutrophils # (1.3-7.7) k/uL VBG pH (7.31-7.41) VBG pCO2 (37-51) mmHg VBG HCO3 (24-28) mmol/L Sodium (137-145) mmol/L Potassium (3.5-5.1) mmol/L Chloride (98-107) mmol/L Carbon Dioxide 5 L* (22-30) mmol/L BUN 24 H (9-20) mg/dL Glucose 568 H* (74-99) mg/dL POC Glucose (mg/dL) 368 H (70-110) mg/dL Plasma Lactic Acid Len 3.6 H* (0.7-2.0) mmol/L Phosphorus (2.5-4.5) mg/dL 08/04/24 08/04/24 08/04/24 Range/Units 18:04 18:54 19:48 WBC (3.8-10.6) k/uL Hgb (13.0-17.5) gm/dL MCHC (31.0-37.0) g/dL RDW (11.5-15.5) % Neutrophils # (1.3-7.7) k/uL VBG pH (7.31-7.41) VBG pCO2 (37-51) mmHg VBG HCO3 (24-28) mmol/L Sodium 146 H (137-145) mmol/L Potassium (3.5-5.1) mmol/L Chloride 111 H (98-107) mmol/L Carbon Dioxide 16 L (22-30) mmol/L BUN 24 H (9-20) mg/dL Glucose 144 H (74-99) mg/dL POC Glucose (mg/dL) 184 H 143 H (70-110) mg/dL Plasma Lactic Acid Len (0.7-2.0) mmol/L Phosphorus (2.5-4.5) mg/dL 08/04/24 08/04/24 08/04/24 Range/Units 19:48 20:07 20:58 WBC (3.8-10.6) k/uL Hgb (13.0-17.5) gm/dL MCHC (31.0-37.0) g/dL RDW (11.5-15.5) % Neutrophils # (1.3-7.7) k/uL VBG pH (7.31-7.41) VBG pCO2 (37-51) mmHg VBG HCO3 (24-28) mmol/L Sodium (137-145) mmol/L Potassium (3.5-5.1) mmol/L Chloride (98-107) mmol/L Carbon Dioxide (22-30) mmol/L BUN (9-20) mg/dL Glucose (74-99) mg/dL POC Glucose (mg/dL) 131 H 130 H (70-110) mg/dL Plasma Lactic Acid Len 3.9 H* (0.7-2.0) mmol/L Phosphorus (2.5-4.5) mg/dL 08/04/24 08/04/24 08/04/24 Range/Units 22:06 23:04 23:57 WBC (3.8-10.6) k/uL Hgb (13.0-17.5) gm/dL MCHC (31.0-37.0) g/dL RDW (11.5-15.5) % Neutrophils # (1.3-7.7) k/uL VBG pH (7.31-7.41) VBG pCO2 (37-51) mmHg VBG HCO3 (24-28) mmol/L Sodium (137-145) mmol/L Potassium (3.5-5.1) mmol/L Chloride (98-107) mmol/L Carbon Dioxide 10 L (22-30) mmol/L BUN 23 H (9-20) mg/dL Glucose 353 H (74-99) mg/dL POC Glucose (mg/dL) 195 H 355 H (70-110) mg/dL Plasma Lactic Acid Len (0.7-2.0) mmol/L Phosphorus (2.5-4.5) mg/dL 08/04/24 08/05/24 08/05/24 Range/Units 23:59 01:17 02:24 WBC (3.8-10.6) k/uL Hgb (13.0-17.5) gm/dL MCHC (31.0-37.0) g/dL RDW (11.5-15.5) % Neutrophils # (1.3-7.7) k/uL VBG pH (7.31-7.41) VBG pCO2 (37-51) mmHg VBG HCO3 (24-28) mmol/L Sodium (137-145) mmol/L Potassium (3.5-5.1) mmol/L Chloride (98-107) mmol/L Carbon Dioxide (22-30) mmol/L BUN (9-20) mg/dL Glucose (74-99) mg/dL POC Glucose (mg/dL) 317 H 204 H 150 H (70-110) mg/dL Plasma Lactic Acid Len (0.7-2.0) mmol/L Phosphorus (2.5-4.5) mg/dL 08/05/24 08/05/24 08/05/24 Range/Units 03:17 04:16 05:27 WBC (3.8-10.6) k/uL Hgb (13.0-17.5) gm/dL MCHC (31.0-37.0) g/dL RDW (11.5-15.5) % Neutrophils # (1.3-7.7) k/uL VBG pH (7.31-7.41) VBG pCO2 (37-51) mmHg VBG HCO3 (24-28) mmol/L Sodium (137-145) mmol/L Potassium (3.5-5.1) mmol/L Chloride (98-107) mmol/L Carbon Dioxide (22-30) mmol/L BUN (9-20) mg/dL Glucose (74-99) mg/dL POC Glucose (mg/dL) 190 H 212 H 252 H (70-110) mg/dL Plasma Lactic Acid Len (0.7-2.0) mmol/L Phosphorus (2.5-4.5) mg/dL 08/05/24 08/05/24 08/05/24 Range/Units 05:57 06:29 06:59 WBC (3.8-10.6) k/uL Hgb (13.0-17.5) gm/dL MCHC (31.0-37.0) g/dL RDW (11.5-15.5) % Neutrophils # (1.3-7.7) k/uL VBG pH (7.31-7.41) VBG pCO2 (37-51) mmHg VBG HCO3 (24-28) mmol/L Sodium (137-145) mmol/L Potassium (3.5-5.1) mmol/L Chloride (98-107) mmol/L Carbon Dioxide 12 L (22-30) mmol/L BUN (9-20) mg/dL Glucose 258 H (74-99) mg/dL POC Glucose (mg/dL) 207 H 184 H (70-110) mg/dL Plasma Lactic Acid Len (0.7-2.0) mmol/L Phosphorus (2.5-4.5) mg/dL 08/05/24 08/05/24 Range/Units 07:51 08:56 WBC (3.8-10.6) k/uL Hgb (13.0-17.5) gm/dL MCHC (31.0-37.0) g/dL RDW (11.5-15.5) % Neutrophils # (1.3-7.7) k/uL VBG pH (7.31-7.41) VBG pCO2 (37-51) mmHg VBG HCO3 (24-28) mmol/L Sodium (137-145) mmol/L Potassium (3.5-5.1) mmol/L Chloride (98-107) mmol/L Carbon Dioxide (22-30) mmol/L BUN (9-20) mg/dL Glucose (74-99) mg/dL POC Glucose (mg/dL) 165 H 143 H (70-110) mg/dL Plasma Lactic Acid Len (0.7-2.0) mmol/L Phosphorus (2.5-4.5) mg/dL Assessment and Plan Plan: Acute diabetic ketoacidosis, secondary to medication noncompliance. Patient has had numerous hospital admissions for DKA. The patient continues to have an anion gap and the patient is still on insulin drip per DKA protocol. Severe anion gap metabolic acidosis, secondary to above, improving, not completely closed Severe dehydration, improving Sinus tachycardia, improving Type 1 diabetes mellitus, with poor medication compliance Diabetic neuropathy History of gastritis History of major depression Plan: Patient is currently in the intensive care unit Continue on DKA protocol Continue electrolyte checks every 4 hours Continue on IV insulin per protocol, currently on 1.17 units an hour and the patient on D5 half-normal saline at rate of 150 cc an hour Tachycardia improving Zofran for nausea Patient educated on the importance of diabetic medication compliance GI prophylaxis with Protonix The patient will be kept in the intensive care unit until the anion gap is closed. Time with Patient: Greater than 30
[2024-08-05 18:14] LABS: Glucose,Whole Blood 201 mg/dL (70-110)
[2024-08-05 18:23] LABS: AST 23 U/L (17-59); African American GFR (CKD) >90 (>60 ml/min/1.73 sqM); Albumin 3.9 g/dL (3.5-5.0); Alkaline Phosphatase 81 U/L (38-126); Anion Gap 16 mmol/L; Blood Urea Nitrogen 15 mg/dL (9-20); Calcium 8.9 mg/dL (8.4-10.2); Carbon Dioxide 18 mmol/L (22-30); Chloride 106 mmol/L (98-107); Glucose 239 mg/dL (74-99); Non-African American GFR(CKD) >90 (>60 ml/min/1.73 sqM); Phosphorus 2.6 mg/dL (2.5-4.5); Potassium 4.2 mmol/L (3.5-5.1); Sodium 140 mmol/L (137-145); Total Bilirubin 0.4 mg/dL (0.2-1.3); Total Protein 6.3 g/dL (6.3-8.2)
[2024-08-05 18:29] LABS: ALT 30 U/L (4-49)
[2024-08-05 19:12] LABS: Glucose,Whole Blood 139 mg/dL (70-110)
[2024-08-05 19:59] LABS: Glucose,Whole Blood 174 mg/dL (70-110)
[2024-08-05 20:57] LABS: Glucose,Whole Blood 162 mg/dL (70-110)
[2024-08-05 21:55] LABS: Glucose,Whole Blood 175 mg/dL (70-110)
[2024-08-05 23:03] LABS: Glucose,Whole Blood 191 mg/dL (70-110)
--- NOTE | 2024-08-05 23:14 | HP ---
HISTORY AND PHYSICAL CHIEF COMPLAINT: Diabetic ketoacidosis. HISTORY OF PRESENT ILLNESS: This is another admission, once again, for this 28-year-old white male, who is in and out of the hospital every several days now with diabetic ketoacidosis. He was just discharged several days ago. He is well known for being noncompliant and not taking his insulin. He came to emergency room with a blood sugar of 733 and a pH of 7.1. Bicarb was 8. His gap could not be measured. REVIEW OF SYSTEMS: He is lethargic and nauseated. The remainder of his history is unchanged. He does not take medications at home including insulin. PHYSICAL EXAMINATION: GENERAL: He is in sinus tachycardia. He is lethargic and dehydrated. HEAD, EARS, EYES, NOSE, MOUTH, AND THROAT: Normal except for dry mucous membranes. CHEST: Clear. CARDIAC: Normal except for sinus tachycardia. ABDOMEN: Soft and nontender. EXTREMITIES: Normal. NEUROLOGIC: He was lethargic. ASSESSMENT: He was admitted to the hospital with diagnoses of: 1. Diabetic ketoacidosis. 2. Dehydration. 3. Metabolic acidosis. 4. Depression. 5. Gastroparesis. 6. Peripheral neuropathy. 7. Noncompliant patient. PLAN: 1. Bedrest. 2. IV fluids. 3. DKA protocol. MMODL / IJN: [id number] /
[2024-08-06 00:04] LABS: Glucose,Whole Blood 169 mg/dL (70-110)
--- NOTE | 2024-08-06 00:23 | PN ---
PROGRESS NOTE CHIEF COMPLAINT: Diabetic ketoacidosis. HISTORY OF PRESENT ILLNESS: This gentleman feels very lethargic, dehydrated and vomiting. PHYSICAL EXAMINATION: GENERAL: He is dehydrated. CHEST: Clear. CARDIAC: Normal. ABDOMEN: Soft and nontender. IMPRESSION: 1. Diabetic ketoacidosis. 2. Dehydration. 3. Intractable nausea and vomiting. PLAN: 1. Antiemetics. 2. Continue DKA protocol. MMODL / IJN: [id number] /
[2024-08-06 01:17] LABS: Glucose,Whole Blood 158 mg/dL (70-110)
[2024-08-06 02:00] LABS: ALT 21 U/L (4-49); AST 22 U/L (17-59); African American GFR (CKD) >90 (>60 ml/min/1.73 sqM); Albumin 3.6 g/dL (3.5-5.0); Alkaline Phosphatase 86 U/L (38-126); Anion Gap 11 mmol/L; Blood Urea Nitrogen 14 mg/dL (9-20); Calcium 8.8 mg/dL (8.4-10.2); Carbon Dioxide 21 mmol/L (22-30); Chloride 103 mmol/L (98-107); Glucose 151 mg/dL (74-99); Non-African American GFR(CKD) >90 (>60 ml/min/1.73 sqM); Phosphorus 2.1 mg/dL (2.5-4.5); Potassium 3.9 mmol/L (3.5-5.1); Sodium 135 mmol/L (137-145); Total Bilirubin 0.5 mg/dL (0.2-1.3); Total Protein 6.1 g/dL (6.3-8.2)
[2024-08-06 02:08] LABS: Glucose,Whole Blood 152 mg/dL (70-110)
[2024-08-06] MEDS: METOCLOPRAMIDE 5 MG/ML 2 ML VIAL IVP PRN (02:32)
[2024-08-06] MEDS: INSULIN NPH 100 UNIT/ML 10 ML VIAL SQ ONE (02:32)
[2024-08-06 06:17] LABS: Glucose,Whole Blood 317 mg/dL (70-110)
[2024-08-06] MEDS: INSULIN GLARGINE (LANTUS) 100 UNIT/ML SYR SQ SCH (06:28)
[2024-08-06] MEDS: INSULIN LISPRO (HumaLOG) 100 UNIT/ML 10 mL VL SQ SCH ×2 (06:29)
[2024-08-06 08:07] LABS: Glucose,Whole Blood 189 mg/dL (70-110)
[2024-08-06 08:32] VITALS: RESP 16
[2024-08-06 10:10] LABS: African American GFR (CKD) >90 (>60 ml/min/1.73 sqM); Anion Gap 18 mmol/L; Blood Urea Nitrogen 13 mg/dL (9-20); Calcium 9.1 mg/dL (8.4-10.2); Carbon Dioxide 19 mmol/L (22-30); Chloride 100 mmol/L (98-107); Glucose 123 mg/dL (74-99); Non-African American GFR(CKD) >90 (>60 ml/min/1.73 sqM); Phosphorus 1.9 mg/dL (2.5-4.5); Potassium 3.8 mmol/L (3.5-5.1); Sodium 137 mmol/L (137-145)
[2024-08-06 12:18] LABS: Glucose,Whole Blood 134 mg/dL (70-110)
[2024-08-06 17:10] LABS: Glucose,Whole Blood 145 mg/dL (70-110)
--- NOTE | 2024-08-06 18:08 | P.PN ---
Subjective Progress Note Date: 08/06/24 28-year-old male patient, type I diabetic presenting with DKA. Serum bicarb is 5 with anion gap of 32. Blood sugar is above 600. Sodium levels at 141. White cell count is at 4.3, hemoglobin of 12.4 and a platelet count of 441. He is in sinus tachycardia with a heart rate of 124. Respirations of 24. Hemodynamically stable. He is on room air oxygen. Given IV fluids, 2 L bolus in the emergency room currently on normal citrate of 200 cc an hour. Insulin drip was started at 0.1 units/kg after being given a bolus of 7 units.The patient presented with some altered mentation, generalized fatigue and malaise. Multiple admissions for DKA, last admission was on 07/27/2024 for the same. On 08/05/2024, the patient is being seen for a follow-up. The patient is still being treated for DKA. The patient was hospitalized yesterday and is currently being treated with the DKA protocol. The patient is currently on D5 half-normal saline at rate of 150 cc an hour. Remains on insulin drip at 1.17 units an hour. Most recent blood work and electrolytes showed an anion gap of 18. Serum bicarb is up to 16. Blood sugars at 255. The patient continues to have some mild sinus tachycardia which is improving. More awake. Having some nausea and dry heaves and the patient was offered Zofran. Awake and alert. Remains on room air oxygen. On 08/06/2024, the patient is being seen for a follow-up. Transferred out of the intensive care unit as the patient was transitioned to long-acting insulin. The patient is tolerating diet. The patient is currently off the IV insulin drip. The patient is currently receiving Lantus insulin 25 units along with 7 units of NovoLog with meals and a sign scale coverage. The serum bicarb is at 21 with a gap of 11. Creatinine 0.6. Sodium is at 135. Hemodynamically stable. No significant tachycardia. He is on room air oxygen. Objective - Vital Signs Vital signs: Vital Signs Temp 98 F 08/06/24 13:00 Pulse 116 H 08/06/24 13:00 Resp 16 08/06/24 13:00 BP 148/90 08/06/24 13:00 Pulse Ox 99 08/06/24 13:00 FiO2 Intake & Output 08/05/24 08/06/24 08/06/24 18:59 06:59 18:59 Intake Total 9851.411 0425.941 Output Total 750 752 Balance 7166.980 5866.941 Weight 63.7 kg Intake: IV 150 1400 D5-0.45% NaCl with KCl 150 1400 20Meq/l 1,000 ml @ 50 mls /hr IV .Q20H [facility] Rx#: [id number] Intake, IV Titration 1669.633 13.941 Amount D5-0.45% NaCl with KCl 1650 20Meq/l 1,000 ml @ 50 mls /hr IV .Q20H [facility] Rx#: [id number] Insulin Regular 100 unit 19.633 13.941 In Sodium Chloride 0.9% 100 ml @ 0.1 UNITS/KG/HR 6.872 mls/hr IV .[id number] [facility] Rx#:[id number] Oral 1550 Output: Urine 750 750 Emesis 2 Other: Voiding Method Urinal Urinal Urinal - Exam GENERAL EXAM: Lethargic, 28-year-old male, calm and comfortable, body mass index of 17 HEAD: Normocephalic and atraumatic EYES: Normal reaction of pupils, equal size. NOSE: Clear with pink turbinates. THROAT: No erythema or exudates. NECK: No masses, no JVD. CHEST: No chest wall deformity. LUNGS: Equal air entry with no crackles, wheeze, rhonchi or dullness. On room air. No conversational dyspnea or accessory muscle use.. CVS: S1 and S2 normal with no audible murmur, regular rhythm. No extra heart sounds ABDOMEN: No hepatosplenomegaly, active bowel sounds, no guarding or rigidity. SPINE: No scoliosis or deformity SKIN: No rashes CENTRAL NERVOUS SYSTEM: No focal deficits, tone is normal in all 4 extremities. EXTREMITIES: There is no peripheral edema, clubbing, or cyanosis. Peripheral pulses are intact. - Labs CBC & Chem 7: 08/04/24 12:30 08/06/24 09:37 Labs: Abnormal Lab Results - Last 24 Hours (Table) 08/05/24 08/05/24 08/05/24 Range/Units 17:29 18:12 19:00 Sodium (137-145) mmol/L Carbon Dioxide 18 L (22-30) mmol/L Creatinine (0.66-1.25) mg/dL Glucose 239 H (74-99) mg/dL POC Glucose (mg/dL) 201 H 139 H (70-110) mg/dL Phosphorus (2.5-4.5) mg/dL Total Protein (6.3-8.2) g/dL 08/05/24 08/05/24 08/05/24 Range/Units 19:57 20:56 21:54 Sodium (137-145) mmol/L Carbon Dioxide (22-30) mmol/L Creatinine (0.66-1.25) mg/dL Glucose (74-99) mg/dL POC Glucose (mg/dL) 174 H 162 H 175 H (70-110) mg/dL Phosphorus (2.5-4.5) mg/dL Total Protein (6.3-8.2) g/dL 08/05/24 08/06/24 08/06/24 Range/Units 23:01 00:02 01:15 Sodium (137-145) mmol/L Carbon Dioxide (22-30) mmol/L Creatinine (0.66-1.25) mg/dL Glucose (74-99) mg/dL POC Glucose (mg/dL) 191 H 169 H 158 H (70-110) mg/dL Phosphorus (2.5-4.5) mg/dL Total Protein (6.3-8.2) g/dL 08/06/24 08/06/24 08/06/24 Range/Units 01:38 02:06 06:15 Sodium 135 L (137-145) mmol/L Carbon Dioxide 21 L (22-30) mmol/L Creatinine 0.60 L (0.66-1.25) mg/dL Glucose 151 H (74-99) mg/dL POC Glucose (mg/dL) 152 H 317 H (70-110) mg/dL Phosphorus 2.1 L (2.5-4.5) mg/dL Total Protein 6.1 L (6.3-8.2) g/dL 08/06/24 08/06/24 08/06/24 Range/Units 08:05 09:37 12:14 Sodium (137-145) mmol/L Carbon Dioxide 19 L (22-30) mmol/L Creatinine 0.65 L (0.66-1.25) mg/dL Glucose 123 H (74-99) mg/dL POC Glucose (mg/dL) 189 H 134 H (70-110) mg/dL Phosphorus 1.9 L (2.5-4.5) mg/dL Total Protein (6.3-8.2) g/dL 08/06/24 Range/Units 17:08 Sodium (137-145) mmol/L Carbon Dioxide (22-30) mmol/L Creatinine (0.66-1.25) mg/dL Glucose (74-99) mg/dL POC Glucose (mg/dL) 145 H (70-110) mg/dL Phosphorus (2.5-4.5) mg/dL Total Protein (6.3-8.2) g/dL Assessment and Plan Plan: Acute diabetic ketoacidosis, secondary to medication noncompliance, recovered Severe anion gap metabolic acidosis, not completely closed Severe dehydration, improved Sinus tachycardia, improved Type 1 diabetes mellitus, with poor medication compliance Diabetic neuropathy History of gastritis History of major depression Plan: Lantus insulin 25 units along with NovoLog 7 units with meals and sliding scale coverage Transferred out of the intensive care unit Hemodynamically stable Pulmonary critical care services will sign off
[2024-08-06 20:15] LABS: Glucose,Whole Blood 150 mg/dL (70-110)
--- NOTE | 2024-08-07 00:59 | PN ---
PROGRESS NOTE DATE OF SERVICE: 08/06/2024 CHIEF COMPLAINT: DKA, nausea, vomiting, and dehydration. HISTORY OF PRESENT ILLNESS: This gentleman is still nauseated. His sugars have improved. PHYSICAL EXAMINATION: GENERAL: He remains dehydrated. CHEST: Clear. CARDIAC: Demonstrates tachycardia. ABDOMEN: Soft, nontender. IMPRESSION: 1. Diabetic ketoacidosis. 2. Depression. PLAN: Continue with DKA management until gap is closed. MMODL / IJN: [id number] /
[2024-08-07 02:23] LABS: Glucose,Whole Blood 151 mg/dL (70-110)
[2024-08-07 06:07] LABS: Glucose,Whole Blood 164 mg/dL (70-110)
[2024-08-07 07:40] LABS: Glucose,Whole Blood 187 mg/dL (70-110)
[2024-08-07 12:29] LABS: Glucose,Whole Blood 102 mg/dL (70-110)
[2024-08-07 12:59] VITALS: PULSE 103; TEMP 97.4
[2024-08-07 13:24] VITALS: BP 130/91
--- NOTE | 2024-08-08 19:08 | DS ---
DISCHARGE SUMMARY CHIEF COMPLAINT: DKA. HISTORY OF PRESENT ILLNESS AND PHYSICAL EXAMINATION: Details of this man's history can be found in the initial workup. COURSE IN THE HOSPITAL: After admission, he was placed on bedrest, started on intravenous fluids and DKA protocol. He had nausea and vomiting for 24 hours or so, but he was stable and doing well on the 15 and was felt that he could go home on his usual insulin management. FINAL DIAGNOSES: 1. DKA. 2. Depression. 3. Gastroparesis. 4. Peripheral neuropathy. OPERATIONS: None. CONSULTATIONS: None. He is improved. MMODL / IJN: [id number] /
--- NOTE | 2024-08-11 12:25 | CDI ---
Documentation Clarification Form Date: 08/11/2024 11:58:44 AM From: Serina Ingram RN, CCDS Email: [email or web address] Admit Date: 08/04/2024 02:34:00 PM Patient Name: Raul Marquez Visit Number: [id number] Discharge Date: 08/07/2024 04:56:00 PM ATTENTION: The Clinical Documentation Specialists (CDI) and [facility] Coding Staff appreciate your assistance in clarifying documentation. Please respond to the clarification below the line at the bottom and electronically sign. The CDI & [facility] Coding staff will review the response and follow-up if needed. Please note: Queries are made part of the Legal Health Record. If you have any questions, please contact the author of this message via ITS. Doctor Daren Shankar The patient had tachycardia, tachypnea, leukocytosis and acidosis. Based on this information and the findings below, is there an additional diagnosis that is clinically appropriate for this patient? History/Risk Factors: From the ED note: "28-year-old male well-known to the emergency department for multitude of admissions for DKA. Patient brought in by EMS from home for usual altered mental status, malaise and hyperglycemia." Clinical Indicators: 08/05 H&P: "He is in sinus tachycardia. He is lethargic and dehydrated. Diabetic ketoacidosis. Metabolic acidosis." 08/04 Pulmonary consult: "Acute diabetic ketoacidosis, secondary to medication noncompliance. Severe anion gap metabolic acidosis, secondary to above." 08/05 Pulmonary: "The patient continues to have some mild sinus tachycardia which is improving. More awake." 08/04 HR 135 RR 29 08/04 WBC 12.3 08/04 anion gap 32 08/04 lactic acid 4.8-3.6-3.9-1.5; Acetone positive Treatment: IV insulin per protocol, currently on 1.17 units/hr 08/04-08/06 ; D5 half-normal saline at rate of 150mL/hr 08/04-08/07; 1L 0.9 NS IV bolus x1 on 08/04 Is there an additional diagnosis that is clinically appropriate for this patient? [ x] Non-infectious SIRS from DKA causing lactic acidosis [ ] No additional diagnosis/not clinically significant [ ] Other, please specify [ ] Unable to determine SIRS Criteria: 2 or more of the following may indicate SIRS Temperature < 96.8F (36C) or > 101.0F (38.3C) Heart Rate > 90 bpm Respiratory Rate > 20 breaths/min or PaCO2 < 32 mmHg White Blood Cell Count > 12,000 or < 4,000 cells/mm3 or > 10% bands MTDD
--- NOTE | 2024-08-11 13:15 | CDI ---
Documentation Clarification Form Date: 08/11/2024 12:35:05 PM From: Serina Ingram RN, CCDS Email: [email or web address] Admit Date: 08/04/2024 02:34:00 PM Patient Name: Raul Marquez Visit Number: [id number] Discharge Date: 08/07/2024 04:56:00 PM ATTENTION: The Clinical Documentation Specialists (CDI) and [facility] Coding Staff appreciate your assistance in clarifying documentation. Please respond to the clarification below the line at the bottom and electronically sign. The CDI & [facility] Coding staff will review the response and follow-up if needed. Please note: Queries are made part of the Legal Health Record. If you have any questions, please contact the author of this message via ITS. Doctor Daren Shankar Patient has a documented BMI of 17.[address] Additional clarification is requested. History/Risk Factors: 28-year-old male, well-known to the emergency department for multitude of admissions for DKA. Patient brought in by EMS from home for usual altered mental status, malaise, N/V and hyperglycemia. Clinical Indicators: Patients weight is 63.7 kg Patients height is 6ft 3in Calculated BMI is 17.5 08/05 consult: "pt very well known to nutrition team w/multiple admissions for DKA, non-compliant, patient currently in the ICU on DKA protocol. Poor nutrition intake, underweight. Endocrine dysfunction. Glucose: 353 on admit." 08/04 Glucose [phone] Treatments: D5% 1/2 NS with 20meq KCL @150mL/hr; IV Reglan 5mg Q6H prn for N/V; IV Zofran 4mg Q6H prn for N/V Nutritional Education: Increased PO intake from 50-75%, controlled blood sugar, meet 75% of estimated nutritional needs Please clarify, is there is an additional diagnosis that is clinically appropriate for this patient? [ ] Cachexia [ x ] Underweight [ ] Malnutrition, (further specify severity and type) [ ] No additional diagnosis/not clinically significant [ ] Other, please specify [ ] Unable to determine MTDD
--- NOTE | 2024-08-11 13:21 | CDI ---
Documentation Clarification Form Date: 08/11/2024 01:07:53 PM From: Serina Ingram RN, CCDS Email: [email or web address] Admit Date: 08/04/2024 02:34:00 PM Patient Name: Raul Marquez Visit Number: [id number] Discharge Date: 08/07/2024 04:56:00 PM ATTENTION: The Clinical Documentation Specialists (CDI) and [facility] Coding Staff appreciate your assistance in clarifying documentation. Please respond to the clarification below the line at the bottom and electronically sign. The CDI & [facility] Coding staff will review the response and follow-up if needed. Please note: Queries are made part of the Legal Health Record. If you have any questions, please contact the author of this message via ITS. Doctor Daren Shankar The patient had the documented symptom of altered mental status and altered mentation. Additional clarification regarding the etiology/cause of this symptom is requested. History/Risk Factors: 28-year-old male well-known to the emergency department for multitude of admissions for DKA. Patient brought in by EMS from home for usual altered mental status, malaise, N/V and hyperglycemia. Clinical Indicators: 08/04 ED: "Patient brought in by EMS from home for usual altered mental status, malaise and hyperglycemia. Patient unable to provide history of present illness at this time due to mental status." 08/04 Pulmonary consult: "The patient presented with some altered mentation, generalized fatigue and malaise. Severe anion gap metabolic acidosis." 08/04 Labs: WBC 12.3; VBG pH 7.14 pCO2 23 HCO3 8; CO2 <5; anion gap 32; Glucose 733; lactic acid 4.8; acetone + Treatment: IV insulin per protocol 08/04-08/06; 1L 0.9 NS IV bolus x1 on 08/04; D5% 1/2 NS with 20meq KCL @150mL/hr; IV Reglan 5mg Q6H prn for N/V; IV Zofran 4mg Q6H prn for N/V Please clarify the etiology of the symptom of altered mental status: [ x ] Metabolic Encephalopathy due to anion gap metabolic acidosis and DKA [ ] Other condition (please specify) [ ] Unable to determine MTDD
== END 2024-08-07 16:56 | disposition home or self-care (01) | DRG 420 ==
LOC: EC 12:08 → 2SICU 14:34 → 5NMEDONC 08-06 07:53
PROVIDERS: ADMIT Family Medicine; ATTEND Family Medicine
DX: E10.10 Type 1 diabetes mellitus with ketoacidosis without coma (principal); E10.42 Type 1 diabetes mellitus with diabetic polyneuropathy; F32.A Depression, unspecified; G93.41 Metabolic encephalopathy; R65.11 Systemic inflammatory response syndrome (SIRS) of non-infectious origin with acute organ dysfunction; E10.43 Type 1 diabetes mellitus with diabetic autonomic (poly)neuropathy; R63.6 Underweight; Z68.1 Body mass index [BMI] 19.9 or less, adult; F17.210 Nicotine dependence, cigarettes, uncomplicated; T38.3X6A Underdosing of insulin and oral hypoglycemic [antidiabetic] drugs, initial encounter; E86.0 Dehydration; K31.84 Gastroparesis; R00.0 Tachycardia, unspecified; Z79.4 Long term (current) use of insulin; Z91.128 Patient's intentional underdosing of medication regimen for other reason; Z87.19 Personal history of other diseases of the digestive system
CPT/HCPCS: 36415; 80048; 80051; 80053; 82009; 82565; 82803; 82947; 83605; 83735; 84100; 84520; 85025; 96361; 96365; 96366; 96375; 99291

== ENCOUNTER 2024-08-25 19:11 | Inpatient (IN) | payer OTHER ==
[2024-08-25 19:19] LABS: Glucose,Whole Blood >600 mg/dL (70-110)
[2024-08-25] MEDS: SODIUM CHLORIDE 0.9% 1,000 ML IV SCH ×2 (19:39→21:33)
[2024-08-25] MEDS: ONDANSETRON 4 MG/2 ML VIAL IVP STA (19:40)
[2024-08-25] MEDS: KETOROLAC 15 MG/ML 1 ML VIAL IVP STA (19:43)
[2024-08-25] MEDS: PANTOPRAZOLE 40 MG/10 ML VIAL IVP STA (19:46)
[2024-08-25 19:54] LABS: VBG PH 7.37 (7.31-7.41)
[2024-08-25 19:56] LABS: Basophils # (A) 0.1 k/uL (0-0.2); Basophils % (A) 1 %; Eosinophils # (A) 0.1 k/uL (0-0.7); Eosinophils % (A) 2 %; HCT 45.2 % (39.0-53.0); HGB 14.2 gm/dL (13.0-17.5); Hypochromasia Moderate; Lymphocytes # (A) 2.1 k/uL (1.0-4.8); Lymphocytes % (A) 25 %; MCH 27.8 pg (25.0-35.0); MCHC 31.5 g/dL (31.0-37.0); Monocytes # (A) 0.4 k/uL (0-1.0); Monocytes % (A) 5 %; Neutrophils # (A) 5.8 k/uL (1.3-7.7); Neutrophils % (A) 66 %; Platelet Count 444 k/uL (150-450); RBC 5.11 m/uL (4.30-5.90); RDW 15.7 % (11.5-15.5); WBC 8.8 k/uL (3.8-10.6)
[2024-08-25 20:06] LABS: ALT 22 U/L (4-49); AST 20 U/L (17-59); African American GFR (CKD) >90 (>60 ml/min/1.73 sqM); Alkaline Phosphatase 116 U/L (38-126); Amylase 61 U/L (30-110); Anion Gap 22 mmol/L; Blood Urea Nitrogen 28 mg/dL (9-20); Carbon Dioxide 20 mmol/L (22-30); Chloride 90 mmol/L (98-107); Lipase 104 U/L (23-300); Non-African American GFR(CKD) >90 (>60 ml/min/1.73 sqM); Potassium 4.8 mmol/L (3.5-5.1); Sodium 132 mmol/L (137-145); Total Bilirubin 0.8 mg/dL (0.2-1.3); Total Protein 7.6 g/dL (6.3-8.2)
[2024-08-25 20:11] LABS: MCV 88.4 fL (80.0-100.0)
[2024-08-25] MEDS: METOCLOPRAMIDE 5 MG/ML 2 ML VIAL IVP STA (20:15)
[2024-08-25] MEDS: diphenhydrAMINE 50 MG/ML 1 ML VIAL IVP STA (20:18)
[2024-08-25 20:38] LABS: Glucose 696 mg/dL (74-99)
[2024-08-25 20:59] LABS: Glucose,Whole Blood 552 mg/dL (70-110)
[2024-08-25] MEDS ORDERED: Magnesium Replacement Protocol 1 EACH MISC MISCELLANE PRN (21:02)
[2024-08-25] MEDS ORDERED: DEXTROSE 50% SYRINGE 50 ML IVP PRN ×2 (21:02)
[2024-08-25] MEDS ORDERED: Potassium Replacement Protocol 1 EACH MISC MISCELLANE PRN (21:02)
[2024-08-25] MEDS ORDERED: KETOROLAC 15 MG/ML 1 ML VIAL IVP PRN (21:09)
[2024-08-25] MEDS ORDERED: NALOXONE 0.4 MG/ML 1 ML VIAL IV PRN (21:09)
[2024-08-25] MEDS: INSULIN REGULAR 100 UNIT in SODIUM CHLORIDE 0.9% 100 ML IV SCH (21:31)
[2024-08-25] MEDS: INSULIN REGULAR BOLUS (FROM DRIP BAG) IV ONE (21:31)
[2024-08-25 22:05] LABS: Glucose,Whole Blood 445 mg/dL (70-110)
--- NOTE | 2024-08-25 22:09 | ED ---
General Adult HPI - General Chief complaint: Recheck/Abnormal Lab/Rx Stated complaint: high blood sugar, NV Time Seen by Provider: 08/25/24 19:15 Source: patient, RN notes reviewed, old records reviewed Mode of arrival: ambulatory Limitations: no limitations - History of Present Illness Initial comments: Patient is a 29-year-old male who presents emergency department for suspected DKA. He is well-known to our department. Presents with nausea and vomiting starting this morning. Sugars reading high. He is a type I diabetic that frequents our emergency department for DKA. Denies any fevers or chills. Denies any cough or congestion. Endorses epigastric abdominal discomfort. Presents for further evaluation at this time. - Related Data Home Medications Medication Instructions Recorded Confirmed INSULIN LISPRO (humaLOG) [humaLOG] 7 units SQ AC-TID 06/20/24 08/25/24 Insulin Glargine (Lantus) [Lantus 25 unit SQ DAILY 06/20/24 08/25/24 Vial] Allergies Allergy/AdvReac Type Severity Reaction Status Date / Time No Known Allergies Allergy Verified 08/25/24 19:47 Review of Systems ROS Statement: Those systems with pertinent positive or pertinent negative responses have been documented in the HPI. Review of Systems: CONST: Denies fever EYES: Denies blurry vision ENT: Denies nasal congestion C/V: Denies Chest pain RESP: Denies shortness of breath GI: Endorses abdominal pain, nausea and vomiting : Denies dysuria SKIN: Denies rash. MSK: Denies joint pain. NEURO: Denies headache ROS Other: All systems not noted in ROS Statement are negative. Past Medical History Past Medical History: Asthma, Diabetes Mellitus, Neurologic Disorder, Skin Disorder Additional Past Medical History / Comment(s): IDDM type I, neuropathy bilateral feet, DKA, eczema,gastritis, anxiety, depression History of Any Multi-Drug Resistant Organisms: None Reported Past Surgical History: Adenoidectomy Additional Past Surgical History / Comment(s): gastritis Past Anesthesia/Blood Transfusion Reactions: No Reported Reaction Past Psychological History: Anxiety, Depression Smoking Status: Current every day smoker Past Alcohol Use History: None Reported Past Drug Use History: Marijuana - Past Family History Mother Family Medical History: CVA/TIA Additional Family Medical History / Comment(s): TIA Father Family Medical History: Hyperlipidemia, Hypertension Additional Family Medical History / Comment(s): . General Exam - General Exam Comments Initial Comments: General: Appears dehydrated, nauseated. HEAD: Normal with no signs of head trauma. EYES: PERRLA, EOMI, conjunctiva normal, no discharge. ENT: Hearing grossly intact, normal oropharynx. Dry mucous membranes. RESPIRATORY: Clear breath sounds bilaterally. No wheezes, rales, or rhonchi. C/V: Tachycardic with regular rhythm.. S1 and S2 auscultated, no edema, peripheral pulses 2+ and intact throughout ABD: Abd is soft, nontender, nondistended EXT: No obvious deformity. SKIN: No rashes or lesions observed on exposed skin. NEURO: Alert and oriented x 4. Limitations: no limitations Course Vital Signs 08/25/24 08/25/24 19:14 21:18 Temperature 98 F Pulse Rate 134 H 98 Respiratory 20 15 Rate Blood Pressure 118/78 101/71 O2 Sat by Pulse 100 99 Oximetry Medical Decision Making - Medical Decision Making Was pt. sent in by a medical professional or institution (JAS Lucero, FIRE INSPECTOR, urgent care, hospital, or custodial...) When possible be specific @ -No Did you speak to anyone other than the patient for history (EMS, parent, family, police, friend...)? What history was obtained from this source @ -No Did you review nursing and triage notes (agree or disagree)? Why? @ -I reviewed and agree with nursing and triage notes Were old charts reviewed (outside hosp., previous admission, EMS record, old EKG, old radiological studies, urgent care reports/EKG's, custodial records)? Report findings @ -Old chart reviewed showing prior visits for identical complaints and patient has been in DKA numerous times this year. Differential Diagnosis (chest pain, altered mental status, abdominal pain women, abdominal pain men, vaginal bleeding, weakness, fever, dyspnea, syncope, headache, dizziness, GI bleed, back pain, seizure, CVA, palpatations, mental health, musculoskeletal)? @ -DKA, electrolyte abnormality, hyperkalemia, dehydration. This list is not all inclusive. EKG interpreted by me (3pts min.). @ -As above X-rays interpreted by me (1pt min.). @ -None done CT interpreted by me (1pt min.). @ -None done U/S interpreted by me (1pt. min.). @ -None done What testing was considered but not performed or refused? (CT, X-rays, U/S, labs)? Why? @ -None What meds were considered but not given or refused? Why? @ -None Did you discuss the management of the patient with other professionals (professionals i.e. DrLinda, PA, FIRE INSPECTOR, lab, RT, psych nurse, social work associate, stock handler, teacher, facility security officer, registered nurse hh case manager)? Give summary @ -Discussed with PCP Dr. Valenzuela who accepted the admission. Was smoking cessation discussed for >3mins.? @ -No Was critical care preformed (if so, how long)? @ -Yes, 33 minutes. Were there social determinants of health that impacted care today? How? (Homelessness, low income, unemployed, alcoholism, drug addiction, tra nsportation, low edu. Level, literacy, decrease access to med. care, senior living, rehab)? @ -No Was there de-escalation of care discussed even if they declined (Discuss DNR or withdrawal of care, Hospice)? DNR status @ -No What co-morbidities impacted this encounter? (DM, HTN, Smoking, COPD, CAD, Cancer, CVA, ARF, Chemo, Hep., AIDS, mental health diagnosis, sleep apnea, morbid obesity)? @ -Insulin-dependent diabetes Was patient admitted / discharged? Hospital course, mention meds given and route, prescriptions, significant lab abnormalities, going to OR and other pertinent info. @ -Based on the patient's presentation and physical exam, presents emergency department complaining of DKA symptoms. We will obtain DKA workup. Patient initially administered IV Reglan, Benadryl, 2 L fluid bolus. He was in agreement this plan. Vitals are remarkable for tachycardia. Otherwise within acceptable limits. Patient's laboratory studies returned remarkable for hyperglycemia of 696. Patient has an anion gap metabolic acidosis with a carbon dioxide of 20, anion gap of 22. Positive acetones. VBG shows mild acidosis. Overall, mild DKA when compared with prior visits for the patient. I discussed results with the patient. He will be admitted at this time on insulin drip. DKA protocol ordered. I spoke with the admitting provider, Dr. Valenzuela who accepted the admission. Undiagnosed new problem with uncertain prognosis? @ -No Drug Therapy requiring intensive monitoring for toxicity (Heparin, Nitro, Insulin, Cardizem)? @ -No Were any procedures done? @ -No Diagnosis/symptom? @ -DKA, nausea and vomiting Acute, or Chronic, or Acute on Chronic? @ -Acute Uncomplicated (without systemic symptoms) or Complicated (systemic symptoms)? @ -Complicated Side effects of treatment? @ -No Exacerbation, Progression, or Severe Exacerbation? @ -No Poses a threat to life or bodily function? How? (Chest pain, USA, LA, pneumonia, PE, COPD, DKA, ARF, appy, cholecystitis, CVA, Diverticulitis, Homicidal, Suicidal, threat to staff... and all critical care pts) @ -Yes - Lab Data Result diagrams: 08/25/24 19:42 08/25/24 19:42 Lab Results 08/25/24 08/25/24 08/25/24 Range/Units 19:17 19:42 19:42 WBC 8.8 (3.8-10.6) k/uL RBC 5.11 (4.30-5.90) m/uL Hgb 14.2 (13.0-17.5) gm/dL Hct 45.2 (39.0-53.0) % MCV 88.4 D (80.0-100.0) fL MCH 27.8 (25.0-35.0) pg MCHC 31.5 (31.0-37.0) g/dL RDW 15.7 H (11.5-15.5) % Plt Count 444 (150-450) k/uL MPV 7.0 Neutrophils % 66 % Lymphocytes % 25 % Monocytes % 5 % Eosinophils % 2 % Basophils % 1 % Neutrophils # 5.8 (1.3-7.7) k/uL Lymphocytes # 2.1 (1.0-4.8) k/uL Monocytes # 0.4 (0-1.0) k/uL Eosinophils # 0.1 (0-0.7) k/uL Basophils # 0.1 (0-0.2) k/uL Hypochromasia Moderate VBG pH (7.31-7.41) VBG pCO2 (37-51) mmHg VBG HCO3 (24-28) mmol/L Sodium 132 L (137-145) mmol/L Potassium 4.8 (3.5-5.1) mmol/L Chloride 90 L (98-107) mmol/L Carbon Dioxide 20 L (22-30) mmol/L Anion Gap 22 mmol/L BUN 28 H (9-20) mg/dL Creatinine 0.91 (0.66-1.25) mg/dL Est GFR (CKD-EPI)AfAm >90 (>60 ml/min/1.73 sqM) Est GFR (CKD-EPI)NonAf >90 (>60 ml/min/1.73 sqM) Glucose 696 H* (74-99) mg/dL POC Glucose (mg/dL) >600 H* (70-110) mg/dL POC Glu Cloth Shearing Supervisor ID Greer Arturo Calcium 10.0 (8.4-10.2) mg/dL Total Bilirubin 0.8 (0.2-1.3) mg/dL AST 20 (17-59) U/L ALT 22 (4-49) U/L Alkaline Phosphatase 116 (38-126) U/L Total Protein 7.6 (6.3-8.2) g/dL Albumin 5.0 (3.5-5.0) g/dL Amylase 61 (30-110) U/L Lipase 104 (23-300) U/L Acetone, Qual Positive (Negative) 08/25/24 08/25/24 Range/Units 19:42 20:57 WBC (3.8-10.6) k/uL RBC (4.30-5.90) m/uL Hgb (13.0-17.5) gm/dL Hct (39.0-53.0) % MCV (80.0-100.0) fL MCH (25.0-35.0) pg MCHC (31.0-37.0) g/dL RDW (11.5-15.5) % Plt Count (150-450) k/uL MPV Neutrophils % % Lymphocytes % % Monocytes % % Eosinophils % % Basophils % % Neutrophils # (1.3-7.7) k/uL Lymphocytes # (1.0-4.8) k/uL Monocytes # (0-1.0) k/uL Eosinophils # (0-0.7) k/uL Basophils # (0-0.2) k/uL Hypochromasia VBG pH 7.37 (7.31-7.41) VBG pCO2 39 (37-51) mmHg VBG HCO3 22 L (24-28) mmol/L Sodium (137-145) mmol/L Potassium (3.5-5.1) mmol/L Chloride (98-107) mmol/L Carbon Dioxide (22-30) mmol/L Anion Gap mmol/L BUN (9-20) mg/dL Creatinine (0.66-1.25) mg/dL Est GFR (CKD-EPI)AfAm (>60 ml/min/1.73 sqM) Est GFR (CKD-EPI)NonAf (>60 ml/min/1.73 sqM) Glucose (74-99) mg/dL POC Glucose (mg/dL) 552 H* (70-110) mg/dL POC Glu Cloth Shearing Supervisor ID Mavis Duncan Calcium (8.4-10.2) mg/dL Total Bilirubin (0.2-1.3) mg/dL AST (17-59) U/L ALT (4-49) U/L Alkaline Phosphatase (38-126) U/L Total Protein (6.3-8.2) g/dL Albumin (3.5-5.0) g/dL Amylase (30-110) U/L Lipase (23-300) U/L Acetone, Qual (Negative) - EKG Data -: EKG Interpreted by Me EKG Comments: 12-lead Electrocardiogram Interpretation Note EKG was reviewed and interpreted by myself. 12-lead ECG performed at 2208 is interpreted by me as revealing sinus tachycardia at a rate of 105 beats per minute. Mumford is normal. DE interval is 177 ms, QRS durations 97 ms, QTc is 414 ms.. There were no ST or T wave abnormalities to suggest myocardial ischemia or injury. R wave progression across the precordium was satisfactory. By my interpretation this EKG is non-diagnostic for acute ischemia. Critical Care Time Critical Care Time: Yes Total Critical Care Time: 33 Disposition Clinical Impression: DKA (diabetic ketoacidosis), Nausea and vomiting Disposition: ADMITTED IP TO THIS [facility] Condition: Serious Time of Disposition: 21:09
[2024-08-25] MEDS ORDERED: METOCLOPRAMIDE 5 MG/ML 2 ML VIAL IVP PRN (22:27)
[2024-08-25 23:07] LABS: Glucose,Whole Blood 292 mg/dL (70-110)
[2024-08-25 23:14] LABS: Appearance,Urine Clear (Clear); Bilirubin,Urine Negative (Negative); Blood,Urine Negative (Negative); Color,Urine Colorless; Glucose,Urine (UA) 4+ (Negative); Leukocyte Esterase,Urine Negative (Negative); Nitrite,Urine Negative (Negative); PH, Urine 5.5 (5.0-8.0); Protein,Urine Negative (Negative); Specific Gravity,Urine 1.029 (1.001-1.035); Urobilinogen,Urine <2.0 mg/dL (<2.0)
[2024-08-25 23:16] LABS: Ketones,Urine 3+ (Negative)
[2024-08-25] MEDS: D5-0.45% NACL WITH KCL 20MEQ/L 1,000 ML IV SCH (23:40)
[2024-08-26 00:01] LABS: Glucose,Whole Blood 251 mg/dL (70-110)
[2024-08-26 01:03] LABS: African American GFR (CKD) >90 (>60 ml/min/1.73 sqM); Anion Gap 8 mmol/L; Blood Urea Nitrogen 26 mg/dL (9-20); Carbon Dioxide 28 mmol/L (22-30); Chloride 103 mmol/L (98-107); Glucose 209 mg/dL (74-99); Non-African American GFR(CKD) >90 (>60 ml/min/1.73 sqM); Phosphorus 3.4 mg/dL (2.5-4.5); Potassium 3.7 mmol/L (3.5-5.1); Sodium 139 mmol/L (137-145)
[2024-08-26 01:10] LABS: Glucose,Whole Blood 149 mg/dL (70-110)
[2024-08-26 02:22] LABS: Glucose,Whole Blood 83 mg/dL (70-110)
[2024-08-26 02:41] VITALS: TEMP 97.4
[2024-08-26 02:45] LABS: Glucose,Whole Blood 69 mg/dL (70-110)
[2024-08-26 03:17] LABS: Glucose,Whole Blood 103 mg/dL (70-110)
[2024-08-26 04:34] LABS: ALT 17 U/L (4-49); AST 17 U/L (17-59); African American GFR (CKD) >90 (>60 ml/min/1.73 sqM); Albumin 3.6 g/dL (3.5-5.0); Alkaline Phosphatase 76 U/L (38-126); Anion Gap 9 mmol/L; Blood Urea Nitrogen 24 mg/dL (9-20); Calcium 8.6 mg/dL (8.4-10.2); Carbon Dioxide 25 mmol/L (22-30); Chloride 99 mmol/L (98-107); Glucose 162 mg/dL (74-99); Non-African American GFR(CKD) >90 (>60 ml/min/1.73 sqM); Phosphorus 3.9 mg/dL (2.5-4.5); Potassium 4.4 mmol/L (3.5-5.1); Sodium 133 mmol/L (137-145); Total Bilirubin 0.5 mg/dL (0.2-1.3); Total Protein 5.9 g/dL (6.3-8.2)
[2024-08-26 05:00] LABS: Basophils # (A) 0.1 k/uL (0-0.2); Basophils % (A) 1 %; Eosinophils # (A) 0.2 k/uL (0-0.7); Eosinophils % (A) 2 %; HCT 34.7 % (39.0-53.0); HGB 11.3 gm/dL (13.0-17.5); Hypochromasia Slight; Lymphocytes # (A) 3.2 k/uL (1.0-4.8); Lymphocytes % (A) 40 %; MCHC 32.6 g/dL (31.0-37.0); MCV 85.9 fL (80.0-100.0); Mean Platelet Volume 6.8; Monocytes # (A) 0.6 k/uL (0-1.0); Monocytes % (A) 7 %; Neutrophils # (A) 3.8 k/uL (1.3-7.7); Neutrophils % (A) 47 %; Platelet Count 351 k/uL (150-450); RBC 4.04 m/uL (4.30-5.90); RDW 15.9 % (11.5-15.5); WBC 8.1 k/uL (3.8-10.6)
[2024-08-26 06:10] LABS: Glucose,Whole Blood 175 mg/dL (70-110)
[2024-08-26] MEDS: INSULIN GLARGINE (LANTUS) 100 UNIT/ML SYR SQ SCH (06:23)
[2024-08-26] MEDS: INSULIN LISPRO (HumaLOG) 100 UNIT/ML 10 mL VL SQ SCH ×2 (06:24)
[2024-08-26 08:25] VITALS: BP 93/62; PULSE 76; RESP 18
[2024-08-26] MEDS: PANTOPRAZOLE 40 MG/10 ML VIAL IV SCH (08:25)
--- NOTE | 2024-08-26 22:40 | HP ---
HISTORY AND PHYSICAL CHIEF COMPLAINT: DKA and uncontrolled diabetes. HISTORY OF PRESENT ILLNESS: This is another admission for this 29-year-old noncompliant patient. He came back in with a blood sugar in the 600s and he was in DKA. He was nauseated, vomiting. REVIEW OF SYSTEMS: Otherwise normal. He has no other complaints. Past medical history, family history, personal and social histories are all unchanged from his recent admitting and discharge summaries, which are frequent. He does not take his insulin. It is suspected that he does this intentionally to come into the hospital for attention. PHYSICAL EXAMINATION: VITAL SIGNS: He is tachycardic. Vital signs otherwise normal. GENERAL: He is dehydrated. HEAD, EARS, EYES, NOSE, MOUTH, AND THROAT: Otherwise normal. CHEST: Clear. CARDIAC: Normal with sinus tachycardia. ABDOMEN: Flat, soft, nontender. EXTREMITIES: Normal. NEUROLOGICAL: He is intact. He is admitted to the hospital with diagnoses of, 1. Diabetic ketoacidosis. 2. Depression. 3. Noncompliant patient. PLAN: 1. Bedrest. 2. IV fluids. 3. DKA protocol. MMODL / TRAMN: [id number] /
--- NOTE | 2024-08-27 01:01 | PN ---
PROGRESS NOTE DATE OF SERVICE: 08/26/2024 CHIEF COMPLAINT: DKA. HISTORY OF PRESENT ILLNESS: This gentleman has improved. He is out of ketoacidosis and he has been started on his basal bolus program at home. He is still nauseated. PHYSICAL EXAMINATION: CHEST: Clear. CARDIAC EXAM: Normal. IMPRESSION: 1. Diabetic ketoacidosis. 2. Uncontrolled type 1 diabetes mellitus. 3. Noncompliant patient. 4. Depression. PLAN: Continue with IV fluids and management of his blood sugars, and he will probably be able to be discharged tomorrow. MMODL / IJN: [id number] /
--- NOTE | 2024-08-27 11:53 | DS ---
DISCHARGE SUMMARY CHIEF COMPLAINT: DKA. HISTORY OF PRESENT ILLNESS AND PHYSICAL EXAMINATION: Details of this man's history and physical can be found in the initial workup. LABORATORY STUDIES: While he was in the hospital, he had laboratory studies, details of which can be found in the laboratory section of his chart. COURSE IN THE HOSPITAL: After admission, he was placed on bedrest, started on intravenous fluids and placed on DKA protocol. His gap closed. He was doing well and then he signed out AMA 10 o'clock in the morning on the . FINAL DIAGNOSES: 1. Diabetic ketoacidosis. 2. Depression. 3. Gastroparesis. OPERATIONS: None. CONSULTATIONS: None. MMODL / IJN: [id number] /
== END 2024-08-26 10:08 | disposition left against medical advice (07) | DRG 420 ==
LOC: EC 19:11 → 3SCARD 21:13
PROVIDERS: ADMIT Family Medicine; ATTEND Family Medicine
DX: E10.10 Type 1 diabetes mellitus with ketoacidosis without coma (principal); F17.200 Nicotine dependence, unspecified, uncomplicated; L30.9 Dermatitis, unspecified; F32.A Depression, unspecified; E86.0 Dehydration; T38.3X6A Underdosing of insulin and oral hypoglycemic [antidiabetic] drugs, initial encounter; F41.9 Anxiety disorder, unspecified; J45.909 Unspecified asthma, uncomplicated; E10.40 Type 1 diabetes mellitus with diabetic neuropathy, unspecified; Z79.4 Long term (current) use of insulin; Z91.199 Patient's noncompliance with other medical treatment and regimen due to unspecified reason; Z28.21 Immunization not carried out because of patient refusal; Z91.128 Patient's intentional underdosing of medication regimen for other reason
CPT/HCPCS: 36415; 80051; 80053; 81003; 82009; 82150; 82565; 82803; 82947; 83690; 84100; 84520; 85025; 93005; 96361; 96374; 96375; 99291

== ENCOUNTER 2024-09-01 14:54 | Inpatient (IN) | payer OTHER ==
[2024-09-01] MEDS ORDERED: Potassium Replacement Protocol 1 EACH MISC MISCELLANE PRN (15:05)
[2024-09-01] MEDS ORDERED: Magnesium Replacement Protocol 1 EACH MISC MISCELLANE PRN (15:05)
[2024-09-01] MEDS ORDERED: DEXTROSE 50% SYRINGE 50 ML IVP PRN ×2 (15:05)
[2024-09-01 15:35] LABS: Basophils # (A) 0.08 10*3/uL (0.00-0.10); Basophils % (A) 1.4 %; Eosinophils # (A) 0.06 10*3/uL (0.04-0.35); HGB 14.2 g/dL (13.0-17.0); Lymphocytes # (A) 1.76 10*3/uL (0.90-5.00); MCH 28.9 pg (27.0-32.0); MCHC 34.6 g/dL (32.0-37.0); MCV 83.3 fL (80.0-97.0); Mean Platelet Volume 9.2 fL (9.5-12.2); Monocytes # (A) 0.37 10*3/uL (0.20-1.00); Monocytes % (A) 6.3 %; Neutrophils # (A) 3.59 10*3/uL (1.80-7.70); Neutrophils % (A) 61.1 %; Platelet Count 363 10*3/uL (140-440); RBC 4.92 10*6/uL (4.40-5.60); RDW 15.6 % (11.5-14.5); WBC 5.87 10*3/uL (4.50-10.00)
[2024-09-01 15:36] LABS: VBG PH 7.55 (7.31-7.41)
[2024-09-01] MEDS: INSULIN REGULAR BOLUS (FROM DRIP BAG) IV ONE (15:48)
[2024-09-01] MEDS: INSULIN REGULAR 100 UNIT in SODIUM CHLORIDE 0.9% 100 ML IV SCH (15:49)
[2024-09-01] MEDS: SODIUM CHLORIDE 0.9% 1,000 ML IV SCH ×2 (15:50)
[2024-09-01 15:53] LABS: African American GFR (CKD) >90 (>60 ml/min/1.73 sqM); Anion Gap 22 mmol/L; Blood Urea Nitrogen 18 mg/dL (9-20); Carbon Dioxide 21 mmol/L (22-30); Chloride 96 mmol/L (98-107); Glucose 418 mg/dL (74-99); Non-African American GFR(CKD) >90 (>60 ml/min/1.73 sqM); Potassium 4.2 mmol/L (3.5-5.1); Sodium 139 mmol/L (137-145)
[2024-09-01 15:57] LABS: Glucose,Whole Blood 346 mg/dL (70-110)
[2024-09-01] MEDS: METOCLOPRAMIDE 5 MG/ML 2 ML VIAL IVP STA (15:58)
[2024-09-01 17:15] LABS: Glucose,Whole Blood 160 mg/dL (70-110)
[2024-09-01] MEDS: ONDANSETRON 4 MG/2 ML VIAL IVP STA (17:15)
--- NOTE | 2024-09-01 17:25 | ED ---
General Adult HPI - General Chief complaint: Recheck/Abnormal Lab/Rx Stated complaint: Hyperglycemia Time Seen by Provider: 09/01/24 15:00 Source: patient, RN notes reviewed, old records reviewed Mode of arrival: EMS Limitations: no limitations - Related Data Home Medications Medication Instructions Recorded Confirmed INSULIN LISPRO (humaLOG) [humaLOG] 7 units SQ AC-TID 06/20/24 09/01/24 Insulin Glargine (Lantus) [Lantus 20 unit SQ DAILY 06/20/24 09/01/24 Vial] Allergies Allergy/AdvReac Type Severity Reaction Status Date / Time No Known Allergies Allergy Verified 09/01/24 17:18 Review of Systems ROS Statement: Those systems with pertinent positive or pertinent negative responses have been documented in the HPI. ROS Other: All systems not noted in ROS Statement are negative. Past Medical History Past Medical History: Asthma, Diabetes Mellitus, Neurologic Disorder, Skin Disorder Additional Past Medical History / Comment(s): IDDM type I, neuropathy bilateral feet, DKA, eczema,gastritis, anxiety, depression History of Any Multi-Drug Resistant Organisms: None Reported Past Surgical History: Adenoidectomy Additional Past Surgical History / Comment(s): gastritis Past Anesthesia/Blood Transfusion Reactions: No Reported Reaction Past Psychological History: Anxiety, Depression Smoking Status: Current every day smoker Past Alcohol Use History: None Reported Past Drug Use History: Marijuana - Past Family History Mother Family Medical History: CVA/TIA Additional Family Medical History / Comment(s): TIA Father Family Medical History: Hyperlipidemia, Hypertension Additional Family Medical History / Comment(s): . General Exam Limitations: no limitations Course Vital Signs 09/01/24 09/01/24 14:57 15:55 Temperature 97 F L Pulse Rate 85 102 H Respiratory 32 H 20 Rate Blood Pressure 143/97 126/90 O2 Sat by Pulse 98 93 L Oximetry Medical Decision Making - Medical Decision Making Was pt. sent in by a medical professional or institution (, PA, PUMP INSTALLATION AND SERVICER, urgent c are, hospital, or longterm...) When possible be specific @ -No Did you speak to anyone other than the patient for history (EMS, parent, family, police, friend...)? What history was obtained from this source @ -No Did you review nursing and triage notes (agree or disagree)? Why? @ -I reviewed and agree with nursing and triage notes Were old charts reviewed (outside hosp., previous admission, EMS record, old EKG, old radiological studies, urgent care reports/EKG's, longterm records)? Report findings @ -No old charts were reviewed Differential Diagnosis? @ -DKA, hyperglycemia, sepsis, acute vomiting, gastroenteritis, this is not an all-inclusive list EKG interpreted by me (3pts min.). @ -As above X-rays interpreted by me (1pt min.). @ -None done CT interpreted by me (1pt min.). @ -None done U/S interpreted by me (1pt. min.). @ -None done What testing was considered but not performed or refused? (CT, X-rays, U/S, labs)? Why? @ -None What meds were considered but not given or refused? Why? @ -None Did you discuss the management of the patient with other professionals (alley mcpherson i.e. , PA, PUMP INSTALLATION AND SERVICER, lab, RT, psych nurse, social media strategist, recovery unit operator, teacher, border patrol officer, community case manager)? Give summary @ -Spoke with Dr. Valenzuela he agreed to admit the patient Was smoking cessation discussed for >3mins.? @ -No Was critical care preformed (if so, how long)? @ -No Were there social determinants of health that impacted care today? How? (Homelessness, low income, unemployed, alcoholism, drug addiction, transportation, low edu. Level, literacy, decrease access to med. care, alf, rehab)? @ -No Was there de-escalation of care discussed even if they declined (Discuss DNR or withdrawal of care, Hospice)? DNR status @ -No What co-morbidities impacted this encounter? (DM, HTN, Smoking, COPD, CAD, Cancer, CVA, ARF, Chemo, Hep., AIDS, mental health diagnosis, sleep apnea, morbid obesity)? @ -None Was patient admitted / discharged? Hospital course, mention meds given and route, prescriptions, significant lab abnormalities, going to OR and other pertinent info. @ -Patient got 2 L of normal saline. Patient was also placed on an insulin drip. Patient continued to vomit in the ER he initially got Reglan but continue to vomit so he got 4 of Zofran and that did settle him down. Undiagnosed new problem with uncertain prognosis? @ -No Drug Therapy requiring intensive monitoring for toxicity (Heparin, Nitro, Insulin, Cardizem)? @ -No Were any procedures done? @ -No Diagnosis/symptom? @ -Hyperglycemia Acute, or Chronic, or Acute on Chronic? @ -Acute Uncomplicated (without systemic symptoms) or Complicated (systemic symptoms)? @ -Comp Side effects of treatment? @ -No Exacerbation, Progression, or Severe Exacerbation? @ -No Poses a threat to life or bodily function? How? (Chest pain, USA, ID, pneumonia, PE, COPD, DKA, ARF, appy, cholecystitis, CVA, Diverticulitis, Homicidal, Suicidal, threat to staff... and all critical care pts) @ -Yes this could become DKA and make patient dehydrated and cause significant morbidity mortality Diagnosis/symptom? @ -Acute vomiting Acute, or Chronic, or Acute on Chronic? @ -Acute Uncomplicated (without systemic symptoms) or Complicated (systemic symptoms)? @ -Uncomplicated Side effects of treatment? @ -None Exacerbation, Progression, or Severe Exacerbation] @ -No Poses a threat to life or bodily function? @ -No - Lab Data Result diagrams: 09/01/24 15:25 09/01/24 15:25 Lab Results 09/01/24 09/01/24 09/01/24 Range/Units 15:25 15:25 15:25 WBC 5.87 (4.50-10.00) 10*3/uL RBC 4.92 (4.40-5.60) 10*6/uL Hgb 14.2 (13.0-17.0) g/dL Hct 41.0 (39.6-50.0) % MCV 83.3 (80.0-97.0) fL MCH 28.9 (27.0-32.0) pg MCHC 34.6 (32.0-37.0) g/dL Plt Count 363 (140-440) 10*3/uL MPV 9.2 L (9.5-12.2) fL Immature Gran % (Auto) 0.2 % Neutrophils % 61.1 % Lymphocytes % 30.0 % Monocytes % 6.3 % Eosinophils % 1.0 % Basophils % 1.4 % Immature Gran # 0.01 (0.00-0.04) 10*3/uL Neutrophils # 3.59 (1.80-7.70) 10*3/uL Lymphocytes # 1.76 (0.90-5.00) 10*3/uL Monocytes # 0.37 (0.20-1.00) 10*3/uL Eosinophils # 0.06 (0.04-0.35) 10*3/uL Basophils # 0.08 (0.00-0.10) 10*3/uL VBG pH 7.55 H (7.31-7.41) VBG pCO2 26 L (37-51) mmHg VBG HCO3 22 L (24-28) mmol/L Sodium 139 (137-145) mmol/L Potassium 4.2 (3.5-5.1) mmol/L Chloride 96 L (98-107) mmol/L Carbon Dioxide 21 L (22-30) mmol/L Anion Gap 22 mmol/L BUN 18 (9-20) mg/dL Creatinine 0.73 (0.66-1.25) mg/dL Est GFR (CKD-EPI)AfAm >90 (>60 ml/min/1.73 sqM) Est GFR (CKD-EPI)NonAf >90 (>60 ml/min/1.73 sqM) Glucose 418 H (74-99) mg/dL POC Glucose (mg/dL) (70-110) mg/dL POC Glu Mower Mechanic ID Acetone, Qual Positive (Negative) 09/01/24 09/01/24 Range/Units 15:55 17:14 WBC (4.50-10.00) 10*3/uL RBC (4.40-5.60) 10*6/uL Hgb (13.0-17.0) g/dL Hct (39.6-50.0) % MCV (80.0-97.0) fL MCH (27.0-32.0) pg MCHC (32.0-37.0) g/dL Plt Count (140-440) 10*3/uL MPV (9.5-12.2) fL Immature Gran % (Auto) % Neutrophils % % Lymphocytes % % Monocytes % % Eosinophils % % Basophils % % Immature Gran # (0.00-0.04) 10*3/uL Neutrophils # (1.80-7.70) 10*3/uL Lymphocytes # (0.90-5.00) 10*3/uL Monocytes # (0.20-1.00) 10*3/uL Eosinophils # (0.04-0.35) 10*3/uL Basophils # (0.00-0.10) 10*3/uL VBG pH (7.31-7.41) VBG pCO2 (37-51) mmHg VBG HCO3 (24-28) mmol/L Sodium (137-145) mmol/L Potassium (3.5-5.1) mmol/L Chloride (98-107) mmol/L Carbon Dioxide (22-30) mmol/L Anion Gap mmol/L BUN (9-20) mg/dL Creatinine (0.66-1.25) mg/dL Est GFR (CKD-EPI)AfAm (>60 ml/min/1.73 sqM) Est GFR (CKD-EPI)NonAf (>60 ml/min/1.73 sqM) Glucose (74-99) mg/dL POC Glucose (mg/dL) 346 H 160 H (70-110) mg/dL POC Glu Mower Mechanic ID lainey Wilhelm Acetone, Qual (Negative) Disposition Clinical Impression: Hyperglycemia, Acute vomiting Disposition: ADMITTED IP TO THIS HOSP Referrals: Brown Valenzuela MD [Primary Care Provider] - 1-2 days Time of Disposition: 17:25
[2024-09-01] MEDS ORDERED: INSULIN REGULAR 100 UNIT in SODIUM CHLORIDE 0.9% 100 ML IV SCH (17:30)
[2024-09-01 17:56] LABS: African American GFR (CKD) >90 (>60 ml/min/1.73 sqM); Anion Gap 14 mmol/L; Blood Urea Nitrogen 18 mg/dL (9-20); Carbon Dioxide 21 mmol/L (22-30); Chloride 107 mmol/L (98-107); Glucose 153 mg/dL (74-99); Non-African American GFR(CKD) >90 (>60 ml/min/1.73 sqM); Phosphorus 1.5 mg/dL (2.5-4.5); Potassium 3.9 mmol/L (3.5-5.1); Sodium 142 mmol/L (137-145)
[2024-09-01 18:38] LABS: Glucose,Whole Blood 60 mg/dL (70-110)
[2024-09-01] MEDS: D5-0.45% NACL WITH KCL 20MEQ/L 1,000 ML IV SCH (18:42)
[2024-09-01 19:24] LABS: Glucose,Whole Blood 81 mg/dL (70-110)
[2024-09-01 20:20] LABS: Glucose,Whole Blood 150 mg/dL (70-110)
[2024-09-01 21:21] LABS: Glucose,Whole Blood 206 mg/dL (70-110)
[2024-09-01 21:30] LABS: African American GFR (CKD) >90 (>60 ml/min/1.73 sqM); Anion Gap 17 mmol/L; Blood Urea Nitrogen 18 mg/dL (9-20); Carbon Dioxide 20 mmol/L (22-30); Chloride 103 mmol/L (98-107); Glucose 188 mg/dL (74-99); Non-African American GFR(CKD) >90 (>60 ml/min/1.73 sqM); Sodium 140 mmol/L (137-145)
[2024-09-01 22:26] LABS: Glucose,Whole Blood 226 mg/dL (70-110)
[2024-09-01 23:35] LABS: Glucose,Whole Blood 166 mg/dL (70-110)
[2024-09-02 00:26] LABS: Glucose,Whole Blood 159 mg/dL (70-110)
[2024-09-02 01:38] LABS: Glucose,Whole Blood 127 mg/dL (70-110)
[2024-09-02 02:37] LABS: Glucose,Whole Blood 101 mg/dL (70-110)
[2024-09-02 05:53] LABS: Glucose,Whole Blood 108 mg/dL (70-110)
[2024-09-02 07:18] LABS: Glucose,Whole Blood 92 mg/dL (70-110)
[2024-09-02 07:41] VITALS: TEMP 96.9
[2024-09-02 08:06] LABS: HCT 34.2 % (39.6-50.0); HGB 11.5 g/dL (13.0-17.0); MCH 28.5 pg (27.0-32.0); MCHC 33.6 g/dL (32.0-37.0); MCV 84.9 fL (80.0-97.0); Mean Platelet Volume 9.1 fL (9.5-12.2); Platelet Count 331 10*3/uL (140-440); RBC 4.03 10*6/uL (4.40-5.60); RDW 15.8 % (11.5-14.5); WBC 12.09 10*3/uL (4.50-10.00)
[2024-09-02 08:19] LABS: Glucose,Whole Blood 106 mg/dL (70-110)
[2024-09-02 08:28] LABS: ALT 12 U/L (4-49); AST 18 U/L (17-59); African American GFR (CKD) >90 (>60 ml/min/1.73 sqM); Albumin 3.5 g/dL (3.5-5.0); Alkaline Phosphatase 64 U/L (38-126); Anion Gap 8 mmol/L; Blood Urea Nitrogen 15 mg/dL (9-20); Calcium 8.1 mg/dL (8.4-10.2); Carbon Dioxide 24 mmol/L (22-30); Chloride 103 mmol/L (98-107); Glucose 92 mg/dL (74-99); Non-African American GFR(CKD) >90 (>60 ml/min/1.73 sqM); Potassium 3.5 mmol/L (3.5-5.1); Sodium 135 mmol/L (137-145); Total Bilirubin 0.6 mg/dL (0.2-1.3)
--- NOTE | 2024-09-02 08:39 | HP ---
HISTORY AND PHYSICAL CHIEF COMPLAINT: Nausea and vomiting. HISTORY OF PRESENT ILLNESS: This is another admission for this young man who comes in every week or so with uncontrolled diabetes because he will not take his insulin. He came back this time, had nausea and vomiting, and blood sugar running in the neighborhood of 400. REVIEW OF SYSTEMS: Otherwise normal. He has had no abdominal pain, fever, chills, hematemesis, etc. Past medical history, family history, and personal and social histories are all otherwise unremarkable and unchanged. PHYSICAL EXAMINATION: VITAL SIGNS: Normal except for sinus tachycardia. He was dehydrated. CHEST: Clear. CARDIAC: Normal. ABDOMEN: Soft, nontender. EXTREMITIES: Normal. IMPRESSION: 1. Intractable nausea and vomiting. 2. Diabetic ketoacidosis. 3. Uncontrolled type 1 insulin-dependent diabetes mellitus. 4. Depression. 5. Noncompliant patient. PLAN: 1. Bedrest. 2. IV fluids. 3. Antiemetics. 4. Control blood sugar. MMODL / IJN: [id number] /
[2024-09-02 09:26] LABS: Glucose,Whole Blood 82 mg/dL (70-110)
[2024-09-02 10:41] LABS: Glucose,Whole Blood 73 mg/dL (70-110)
[2024-09-02 11:41] VITALS: RESP 18
[2024-09-02 11:41] LABS: Glucose,Whole Blood 112 mg/dL (70-110)
[2024-09-02 12:38] LABS: Glucose,Whole Blood 121 mg/dL (70-110)
[2024-09-02] MEDS: INSULIN LISPRO (HumaLOG) 100 UNIT/ML 10 mL VL SQ SCH (12:56)
[2024-09-02] MEDS: INSULIN GLARGINE (LANTUS) 100 UNIT/ML SYR SQ SCH (12:56)
[2024-09-02 16:05] LABS: Glucose,Whole Blood 216 mg/dL (70-110)
[2024-09-02 16:35] VITALS: BP 141/98; PULSE 90
--- NOTE | 2024-09-02 21:38 | DS ---
DISCHARGE SUMMARY CHIEF COMPLAINT: DKA. HISTORY OF PRESENT ILLNESS AND PHYSICAL EXAMINATION: Details of this man's history and physical can be found in the initial workup. LABORATORY STUDIES: Laboratory studies were in the record and can be found there. COURSE IN THE HOSPITAL: After admission, he was placed on bedrest with intravenous fluids. His gap closed. He was placed on his basal bolus insulin and he signed out AMA. FINAL DIAGNOSIS: DKA. OPERATIONS: None. CONSULTATION: None. GRACE / ALDEN: [id number] /
== END 2024-09-02 16:57 | disposition left against medical advice (07) | DRG 420 ==
LOC: EC 14:54 → 3SCARD 17:29
PROVIDERS: ADMIT Family Medicine; ATTEND Family Medicine
DX: E10.10 Type 1 diabetes mellitus with ketoacidosis without coma (principal); F32.A Depression, unspecified; J45.909 Unspecified asthma, uncomplicated; Z53.29 Procedure and treatment not carried out because of patient's decision for other reasons; Z91.199 Patient's noncompliance with other medical treatment and regimen due to unspecified reason; F41.9 Anxiety disorder, unspecified; Z82.49 Family history of ischemic heart disease and other diseases of the circulatory system; Z79.4 Long term (current) use of insulin; E10.42 Type 1 diabetes mellitus with diabetic polyneuropathy
CPT/HCPCS: 36415; 80051; 80053; 82009; 82565; 82803; 82947; 84100; 84520; 85025; 85027; 93005; 96361; 96365; 96366; 96375; 99285

== ENCOUNTER 2024-09-22 13:26 | Inpatient (IN) | payer OTHER ==
[2024-09-22 14:19] LABS: Glucose,Whole Blood 388 mg/dL (70-110)
[2024-09-22] MEDS: SODIUM CHLORIDE 0.9% 1,000 ML IV SCH ×2 (14:39→16:54)
[2024-09-22] MEDS: METOCLOPRAMIDE 5 MG/ML 2 ML VIAL IVP STA (14:40)
[2024-09-22] MEDS: diphenhydrAMINE 50 MG/ML 1 ML VIAL IVP STA (14:44)
[2024-09-22] MEDS: PANTOPRAZOLE 40 MG/10 ML VIAL IVP STA (14:47)
[2024-09-22 14:54] LABS: Basophils # (A) 0.09 10*3/uL (0.00-0.10); Basophils % (A) 1.2 %; Eosinophils # (A) 0.13 10*3/uL (0.04-0.35); Eosinophils % (A) 1.8 %; HCT 37.1 % (39.6-50.0); HGB 12.9 g/dL (13.0-17.0); Lymphocytes # (A) 1.76 10*3/uL (0.90-5.00); Lymphocytes % (A) 24.3 %; MCH 28.7 pg (27.0-32.0); MCHC 34.8 g/dL (32.0-37.0); MCV 82.6 fL (80.0-97.0); Mean Platelet Volume 9.2 fL (9.5-12.2); Monocytes # (A) 0.43 10*3/uL (0.20-1.00); Monocytes % (A) 5.9 %; Neutrophils # (A) 4.82 10*3/uL (1.80-7.70); Neutrophils % (A) 66.5 %; Platelet Count 361 10*3/uL (140-440); RBC 4.49 10*6/uL (4.40-5.60); RDW 14.9 % (11.5-14.5); WBC 7.25 10*3/uL (4.50-10.00)
[2024-09-22 15:00] LABS: Appearance,Urine Clear (Clear); Bilirubin,Urine Negative (Negative); Blood,Urine Negative (Negative); Color,Urine Colorless; Glucose,Urine (UA) 4+ (Negative); Leukocyte Esterase,Urine Negative (Negative); Nitrite,Urine Negative (Negative); PH, Urine 6.5 (5.0-8.0); Protein,Urine Negative (Negative); Specific Gravity,Urine 1.032 (1.001-1.035); Urobilinogen,Urine <2.0 mg/dL (<2.0)
[2024-09-22 15:06] LABS: VBG PH 7.53 (7.31-7.41)
[2024-09-22 15:13] LABS: ALT 18 U/L (4-49); AST 20 U/L (17-59); African American GFR (CKD) >90 (>60 ml/min/1.73 sqM); Albumin 4.9 g/dL (3.5-5.0); Alkaline Phosphatase 76 U/L (38-126); Amylase 53 U/L (30-110); Anion Gap 22 mmol/L; Blood Urea Nitrogen 20 mg/dL (9-20); Calcium 9.9 mg/dL (8.4-10.2); Carbon Dioxide 16 mmol/L (22-30); Chloride 98 mmol/L (98-107); Glucose 426 mg/dL (74-99); Lipase 43 U/L (23-300); Non-African American GFR(CKD) >90 (>60 ml/min/1.73 sqM); Potassium 4.1 mmol/L (3.5-5.1); Sodium 136 mmol/L (137-145); Total Protein 7.5 g/dL (6.3-8.2)
[2024-09-22 15:41] LABS: Ketones,Urine 4+ (Negative)
[2024-09-22] MEDS ORDERED: Potassium Replacement Protocol 1 EACH MISC MISCELLANE PRN (16:03)
[2024-09-22] MEDS ORDERED: DEXTROSE 50% SYRINGE 50 ML IVP PRN ×2 (16:03)
[2024-09-22] MEDS ORDERED: Magnesium Replacement Protocol 1 EACH MISC MISCELLANE PRN (16:03)
[2024-09-22] MEDS ORDERED: NALOXONE 0.4 MG/ML 1 ML VIAL IV PRN (16:04)
--- NOTE | 2024-09-22 16:06 | ED ---
General Adult HPI - General Chief complaint: Nausea/Vomiting/Diarrhea Stated complaint: Abn Labs Time Seen by Provider: 09/22/24 14:05 Source: patient, EMS, RN notes reviewed, old records reviewed Mode of arrival: EMS - History of Present Illness Initial comments: Patient is a 29-year-old male well-known to our emergency department complaining of nausea and vomiting in the setting of elevated blood sugars. Has recurrent DKA. Presenting as he typically does. Mild abdominal discomfort but mostly nausea. Denies any chest pain or shortness of breath. No other acute complaints. States he did take his insulin this morning. Unknown what his sugar was this afternoon. Symptoms started sometime around this afternoon or this morning. Has had numerous episodes of nonbilious nonbloody emesis. Presents for further evaluation at this time. - Related Data Home Medications Medication Instructions Recorded Confirmed INSULIN LISPRO (humaLOG) [humaLOG] 7 units SQ AC-TID 06/20/24 09/22/24 Insulin Glargine (Lantus) [Lantus 20 unit SQ DAILY 06/20/24 09/22/24 Vial] Allergies Allergy/AdvReac Type Severity Reaction Status Date / Time No Known Allergies Allergy Verified 09/22/24 14:31 Review of Systems ROS Statement: Those systems with pertinent positive or pertinent negative responses have been documented in the HPI. Review of Systems: CONST: Denies fever EYES: Denies blurry vision ENT: Denies nasal congestion C/V: Denies Chest pain RESP: Denies shortness of breath GI: Endorses nausea : Denies dysuria SKIN: Denies rash. MSK: Denies joint pain. NEURO: Denies headache ROS Other: All systems not noted in ROS Statement are negative. Past Medical History Past Medical History: Asthma, Diabetes Mellitus, Neurologic Disorder, Skin Disorder Additional Past Medical History / Comment(s): IDDM type I, neuropathy bilateral feet, DKA, eczema,gastritis, anxiety, depression History of Any Multi-Drug Resistant Organisms: None Reported Past Surgical History: Adenoidectomy Additional Past Surgical History / Comment(s): gastritis Past Anesthesia/Blood Transfusion Reactions: No Reported Reaction Past Psychological History: Anxiety, Depression Smoking Status: Current every day smoker Past Alcohol Use History: None Reported Past Drug Use History: Marijuana - Past Family History Mother Family Medical History: CVA/TIA Additional Family Medical History / Comment(s): TIA Father Family Medical History: Hyperlipidemia, Hypertension Additional Family Medical History / Comment(s): . General Exam - General Exam Comments Initial Comments: General: Patient appears nauseous and dehydrated. HEAD: Normal with no signs of head trauma. EYES: PERRLA, EOMI, conjunctiva normal, no discharge. ENT: Hearing grossly intact, normal oropharynx. Dry mucous membranes. RESPIRATORY: Clear breath sounds bilaterally. No wheezes, rales, or rhonchi. C/V: Regular rate and rhythm. S1 and S2 auscultated, peripheral pulses 2+ and intact throughout ABD: Abdomen soft, nondistended. Mildly tender to palpation nonspecifically. No guarding or rebound tenderness. EXT: Normal range of motion, no obvious deformity SKIN: No rashes or lesions observed on exposed skin. NEURO: Alert and oriented x 4. No focal deficits. Course Vital Signs 09/22/24 09/22/24 09/22/24 13:33 15:53 16:56 Temperature 97.7 F Pulse Rate 91 93 101 H Respiratory 16 18 20 Rate Blood Pressure 130/98 141/96 122/87 O2 Sat by Pulse 95 99 97 Oximetry 09/22/24 18:47 Temperature Pulse Rate 104 H Respiratory 16 Rate Blood Pressure 127/90 O2 Sat by Pulse 98 Oximetry Medical Decision Making - Medical Decision Making Was pt. sent in by a medical professional or institution (JAS Lucero, REGISTERED DENTAL ASSISTANT RDA, urgent care, hospital, or fci...) When possible be specific @ -No Did you speak to anyone other than the patient for history (EMS, parent, family, police, friend...)? What history was obtained from this source @ -No Did you review nursing and triage notes (agree or disagree)? Why? @ -I reviewed and agree with nursing and triage notes Were old charts reviewed (outside hosp., previous admission, EMS record, old EKG, old radiological studies, urgent care reports/EKG's, fci records)? Report findings @ -Old charts reviewed which revealed that patient was recently admitted for DKA earlier this month. Differential Diagnosis (chest pain, altered mental status, abdominal pain women, abdominal pain men, vaginal bleeding, weakness, fever, dyspnea, syncope, headache, dizziness, GI bleed, back pain, seizure, CVA, palpatations, mental health, musculoskeletal)? @ -DKA, dehydration, electrolyte abnormality. This list is not all inclusive. EKG interpreted by me (3pts min.). @ -As above X-rays interpreted by me (1pt min.). @ -None done CT interpreted by me (1pt min.). @ -None done U/S interpreted by me (1pt. min.). @ -None done What testing was considered but not performed or refused? (CT, X-rays, U/S, labs)? Why? @ -None What meds were considered but not given or refused? Why? @ -None Did you discuss the management of the patient with other professionals (prof butt i.e. , PA, REGISTERED DENTAL ASSISTANT RDA, lab, RT, psych nurse, renal social worker, network planner, teacher, chief executive officer, employment case manager)? Give summary @ -Discussed with Dr. Valenzuela the admitting provider who accepted the adm ission. Was smoking cessation discussed for >3mins.? @ -No Was critical care preformed (if so, how long)? @ -Yes, 33 minutes. Were there social determinants of health that impacted care today? How? (Homelessness, low income, unemployed, alcoholism, drug addiction, transportation, low edu. Level, literacy, decrease access to med. care, longterm, rehab)? @ -No Was there de-escalation of care discussed even if they declined (Discuss DNR or withdrawal of care, Hospice)? DNR status @ -No What co-morbidities impacted this encounter? (DM, HTN, Smoking, COPD, CAD, Cancer, CVA, ARF, Chemo, Hep., AIDS, mental health diagnosis, sleep apnea, morbid obesity)? @ -Diabetes, recurrent DKA Was patient admitted / discharged? Hospital course, mention meds given and route, prescriptions, significant lab abnormalities, going to OR and other pertinent info. @ -Patient presents emergency department for diabetic ketoacidosis symptoms. Has a history of recurrent DKA. Will obtain DKA workup. He will be given 2 L fluid bolus as well as IV Reglan and Benadryl. Patient was in agreement this plan. Vitals are within acceptable limits. EKG shows no signs of acute ischemia. Patient's laboratory studies show a mild acidosis however VBG is within normal limits. Likely has some respiratory compensation as patient does have an anion gap metabolic acidosis with a gap of 22. Hyperglycemic to 426. 4+ glucose and ketones in the urine. Positive acetones. At this time, patient will be medically admitted for DKA. Placed on DKA protocol with insulin drip. Patient was in agreement this plan. I spoke with Dr. Valenzuela who accepted the admission. Undiagnosed new problem with uncertain prognosis? @ -No Drug Therapy requiring intensive monitoring for toxicity (Heparin, Nitro, Insulin, Cardizem)? @ -Insulin Were any procedures done? @ -No Diagnosis/symptom? @ -DKA Acute, or Chronic, or Acute on Chronic? @ -Acute Uncomplicated (without systemic symptoms) or Complicated (systemic symptoms)? @ -Complicated Side effects of treatment? @ -No Exacerbation, Progression, or Severe Exacerbation? @ -No Poses a threat to life or bodily function? How? (Chest pain, USA, MD, pneumonia, PE, COPD, DKA, ARF, appy, cholecystitis, CVA, Diverticulitis, Homicidal, Suicidal, threat to staff... and all critical care pts) @ -Yes - Lab Data Result diagrams: 09/22/24 14:33 09/22/24 14:33 Lab Results 09/22/24 09/22/24 09/22/24 Range/Units 14:17 14:33 14:33 WBC 7.25 (4.50-10.00) 10*3/uL RBC 4.49 (4.40-5.60) 10*6/uL Hgb 12.9 L (13.0-17.0) g/dL Hct 37.1 L (39.6-50.0) % MCV 82.6 (80.0-97.0) fL MCH 28.7 (27.0-32.0) pg MCHC 34.8 (32.0-37.0) g/dL Plt Count 361 (140-440) 10*3/uL MPV 9.2 L (9.5-12.2) fL Immature Gran % (Auto) 0.3 % Neutrophils % 66.5 % Lymphocytes % 24.3 % Monocytes % 5.9 % Eosinophils % 1.8 % Basophils % 1.2 % Immature Gran # 0.02 (0.00-0.04) 10*3/uL Neutrophils # 4.82 (1.80-7.70) 10*3/uL Lymphocytes # 1.76 (0.90-5.00) 10*3/uL Monocytes # 0.43 (0.20-1.00) 10*3/uL Eosinophils # 0.13 (0.04-0.35) 10*3/uL Basophils # 0.09 (0.00-0.10) 10*3/uL VBG pH (7.31-7.41) VBG pCO2 (37-51) mmHg VBG HCO3 (24-28) mmol/L Sodium (137-145) mmol/L Potassium (3.5-5.1) mmol/L Chloride (98-107) mmol/L Carbon Dioxide (22-30) mmol/L Anion Gap mmol/L BUN (9-20) mg/dL Creatinine (0.66-1.25) mg/dL Est GFR (CKD-EPI)AfAm (>60 ml/min/1.73 sqM) Est GFR (CKD-EPI)NonAf (>60 ml/min/1.73 sqM) Glucose (74-99) mg/dL POC Glucose (mg/dL) 388 H (70-110) mg/dL POC Glu Turner And Former Automatic ID Steve Mcrae Plasma Lactic Acid Len (0.7-2.0) mmol/L Calcium (8.4-10.2) mg/dL Total Bilirubin (0.2-1.3) mg/dL AST (17-59) U/L ALT (4-49) U/L Alkaline Phosphatase (38-126) U/L Total Protein (6.3-8.2) g/dL Albumin (3.5-5.0) g/dL Amylase (30-110) U/L Lipase (23-300) U/L Urine Color Colorless Urine Appearance Clear (Clear) Urine pH 6.5 (5.0-8.0) Ur Specific [place] 1.032 (1.001-1.035) Urine Protein Negative (Negative) Urine Glucose (UA) 4+ H (Negative) Urine Ketones 4+ H (Negative) Urine Blood Negative (Negative) Urine Nitrite Negative (Negative) Urine Bilirubin Negative (Negative) Urine Urobilinogen <2.0 (<2.0) mg/dL Ur Leukocyte Esterase Negative (Negative) Acetone, Qual (Negative) 09/22/24 09/22/24 09/22/24 Range/Units 14:33 14:33 14:33 WBC (4.50-10.00) 10*3/uL RBC (4.40-5.60) 10*6/uL Hgb (13.0-17.0) g/dL Hct (39.6-50.0) % MCV (80.0-97.0) fL MCH (27.0-32.0) pg MCHC (32.0-37.0) g/dL Plt Count (140-440) 10*3/uL MPV (9.5-12.2) fL Immature Gran % (Auto) % Neutrophils % % Lymphocytes % % Monocytes % % Eosinophils % % Basophils % % Immature Gran # (0.00-0.04) 10*3/uL Neutrophils # (1.80-7.70) 10*3/uL Lymphocytes # (0.90-5.00) 10*3/uL Monocytes # (0.20-1.00) 10*3/uL Eosinophils # (0.04-0.35) 10*3/uL Basophils # (0.00-0.10) 10*3/uL VBG pH 7.53 H (7.31-7.41) VBG pCO2 23 L (37-51) mmHg VBG HCO3 19 L (24-28) mmol/L Sodium 136 L (137-145) mmol/L Potassium 4.1 (3.5-5.1) mmol/L Chloride 98 (98-107) mmol/L Carbon Dioxide 16 L (22-30) mmol/L Anion Gap 22 mmol/L BUN 20 (9-20) mg/dL Creatinine 0.67 (0.66-1.25) mg/dL Est GFR (CKD-EPI)AfAm >90 (>60 ml/min/1.73 sqM) Est GFR (CKD-EPI)NonAf >90 (>60 ml/min/1.73 sqM) Glucose 426 H (74-99) mg/dL POC Glucose (mg/dL) (70-110) mg/dL POC Glu Turner And Former Automatic ID Plasma Lactic Acid Len 1.5 (0.7-2.0) mmol/L Calcium 9.9 (8.4-10.2) mg/dL Total Bilirubin 1.0 (0.2-1.3) mg/dL AST 20 (17-59) U/L ALT 18 (4-49) U/L Alkaline Phosphatase 76 (38-126) U/L Total Protein 7.5 (6.3-8.2) g/dL Albumin 4.9 (3.5-5.0) g/dL Amylase 53 (30-110) U/L Lipase 43 (23-300) U/L Urine Color Urine Appearance (Clear) Urine pH (5.0-8.0) Ur Specific [place] (1.001-1.035) Urine Protein (Negative) Urine Glucose (UA) (Negative) Urine Ketones (Negative) Urine Blood (Negative) Urine Nitrite (Negative) Urine Bilirubin (Negative) Urine Urobilinogen (<2.0) mg/dL Ur Leukocyte Esterase (Negative) Acetone, Qual Positive (Negative) - EKG Data -: EKG Interpreted by Me EKG Comments: 12-lead Electrocardiogram Interpretation Note EKG was reviewed and interpreted by myself. 12-lead ECG performed at 1440 is interpreted by me as revealing normal sinus rhythm at a rate of 86 beats per minute. Right axis deviation. [place] interval is 172 ms, QRS duration is 94 ms, QTc is 417 ms.. There were no ST or T wave abnormalities to suggest myocardial ischemia or injury. R wave progression across the precordium was satisfactory. By my interpretation this EKG is non-diagnostic for acute ischemia. Critical Care Time Critical Care Time: Yes Total Critical Care Time: 33 Disposition Clinical Impression: DKA (diabetic ketoacidosis), Nausea and vomiting Disposition: ADMITTED IP TO THIS [facility] Condition: Serious Time of Disposition: 16:05
[2024-09-22 16:52] LABS: Glucose,Whole Blood 301 mg/dL (70-110)
[2024-09-22] MEDS: INSULIN REGULAR BOLUS (FROM DRIP BAG) IV ONE (16:52)
[2024-09-22] MEDS: INSULIN REGULAR 100 UNIT in SODIUM CHLORIDE 0.9% 100 ML IV SCH (16:53)
[2024-09-22 17:51] LABS: Glucose,Whole Blood 223 mg/dL (70-110)
[2024-09-22] MEDS: D5-0.45% NACL WITH KCL 20MEQ/L 1,000 ML IV SCH (17:59)
[2024-09-22 18:48] LABS: Glucose,Whole Blood 192 mg/dL (70-110)
[2024-09-22 19:49] LABS: Glucose,Whole Blood 152 mg/dL (70-110)
[2024-09-22 20:23] LABS: African American GFR (CKD) >90 (>60 ml/min/1.73 sqM); Anion Gap 8 mmol/L; Blood Urea Nitrogen 19 mg/dL (9-20); Carbon Dioxide 24 mmol/L (22-30); Chloride 107 mmol/L (98-107); Glucose 166 mg/dL (74-99); Non-African American GFR(CKD) >90 (>60 ml/min/1.73 sqM); Potassium 3.7 mmol/L (3.5-5.1); Sodium 139 mmol/L (137-145)
[2024-09-22 20:47] LABS: Glucose,Whole Blood 112 mg/dL (70-110)
[2024-09-22 22:06] LABS: Glucose,Whole Blood 86 mg/dL (70-110)
[2024-09-22 22:33] LABS: Glucose,Whole Blood 83 mg/dL (70-110)
[2024-09-22 23:02] LABS: Glucose,Whole Blood 98 mg/dL (70-110)
[2024-09-23 00:12] LABS: Glucose,Whole Blood 145 mg/dL (70-110)
[2024-09-23 01:01] LABS: African American GFR (CKD) >90 (>60 ml/min/1.73 sqM); Anion Gap 13 mmol/L; Blood Urea Nitrogen 19 mg/dL (9-20); Carbon Dioxide 21 mmol/L (22-30); Chloride 104 mmol/L (98-107); Glucose 153 mg/dL (74-99); Non-African American GFR(CKD) >90 (>60 ml/min/1.73 sqM); Potassium 4.1 mmol/L (3.5-5.1); Sodium 138 mmol/L (137-145)
[2024-09-23 01:17] LABS: Glucose,Whole Blood 148 mg/dL (70-110)
[2024-09-23 02:05] LABS: Glucose,Whole Blood 141 mg/dL (70-110)
--- NOTE | 2024-09-23 02:28 | HP ---
HISTORY AND PHYSICAL CHIEF COMPLAINT: DKA and intractable nausea and vomiting. HISTORY OF PRESENT ILLNESS: This is another admission for this young man who is in and out of the hospital frequently for uncontrolled type 1 insulin-dependent diabetes mellitus because he is not compliant. He is back in this time with nausea and vomiting, a blood sugar of 426 and a pH of 7.5. His gap is 22. REVIEW OF SYSTEMS: He has had no fever, chills, hematemesis, diarrhea, etc. Past medical history, family history, personal and social histories are all otherwise unremarkable or noncontributory or unchanged. PHYSICAL EXAMINATION: VITAL SIGNS: Normal except for tachycardia. He is dehydrated. HEAD, EARS, EYES, NOSE, MOUTH, AND THROAT: Normal. CHEST: Clear. CARDIAC: Normal except for tachycardia. ABDOMEN: Flat, soft, nontender. Bowel sounds are present. EXTREMITIES: Normal. NEUROLOGICAL: He is intact. ASSESSMENT: He is admitted to the hospital with diagnoses of, 1. Diabetic ketoacidosis. 2. Intractable nausea and vomiting. 3. Dehydration. 4. Noncompliant patient. 5. Type 1 insulin-dependent diabetes mellitus. PLAN: 1. Bedrest. 2. IV fluids. 3. IV insulin. MMODL / IJN: [id number] /
[2024-09-23 03:01] LABS: Glucose,Whole Blood 167 mg/dL (70-110)
[2024-09-23 03:20] VITALS: RESP 16
[2024-09-23 04:16] LABS: Glucose,Whole Blood 167 mg/dL (70-110)
[2024-09-23 05:02] LABS: Glucose,Whole Blood 165 mg/dL (70-110)
[2024-09-23] MEDS: INSULIN LISPRO (HumaLOG) 100 UNIT/ML 10 mL VL SQ SCH (05:39)
[2024-09-23 06:25] LABS: Glucose,Whole Blood 184 mg/dL (70-110)
[2024-09-23 07:02] LABS: Glucose,Whole Blood 177 mg/dL (70-110)
[2024-09-23 07:58] LABS: ALT 16 U/L (4-49); AST 19 U/L (17-59); African American GFR (CKD) >90 (>60 ml/min/1.73 sqM); Albumin 4.1 g/dL (3.5-5.0); Alkaline Phosphatase 71 U/L (38-126); Anion Gap 12 mmol/L; Blood Urea Nitrogen 18 mg/dL (9-20); Calcium 8.8 mg/dL (8.4-10.2); Carbon Dioxide 24 mmol/L (22-30); Chloride 99 mmol/L (98-107); Glucose 237 mg/dL (74-99); Non-African American GFR(CKD) >90 (>60 ml/min/1.73 sqM); Potassium 3.9 mmol/L (3.5-5.1); Sodium 135 mmol/L (137-145); Total Bilirubin 0.7 mg/dL (0.2-1.3); Total Protein 6.6 g/dL (6.3-8.2)
[2024-09-23] MEDS: PANTOPRAZOLE 40 MG/10 ML VIAL IV SCH (08:06)
[2024-09-23 08:07] LABS: Basophils # (A) 0.09 10*3/uL (0.00-0.10); Basophils % (A) 0.9 %; Eosinophils # (A) 0.19 10*3/uL (0.04-0.35); Eosinophils % (A) 1.9 %; HCT 38.2 % (39.6-50.0); HGB 12.4 g/dL (13.0-17.0); Lymphocytes # (A) 2.97 10*3/uL (0.90-5.00); MCH 28.2 pg (27.0-32.0); MCHC 32.5 g/dL (32.0-37.0); MCV 86.8 fL (80.0-97.0); Mean Platelet Volume 9.2 fL (9.5-12.2); Monocytes # (A) 0.75 10*3/uL (0.20-1.00); Monocytes % (A) 7.3 %; Neutrophils # (A) 6.22 10*3/uL (1.80-7.70); Neutrophils % (A) 60.6 %; Platelet Count 363 10*3/uL (140-440); RDW 15.3 % (11.5-14.5); WBC 10.25 10*3/uL (4.50-10.00)
[2024-09-23 08:09] LABS: Glucose,Whole Blood 277 mg/dL (70-110)
[2024-09-23] MEDS: INSULIN GLARGINE (LANTUS) 100 UNIT/ML SYR SQ SCH (08:15)
[2024-09-23 08:28] VITALS: TEMP 97.9
[2024-09-23 09:12] LABS: Glucose,Whole Blood 248 mg/dL (70-110)
[2024-09-23 09:54] LABS: Glucose,Whole Blood 238 mg/dL (70-110)
[2024-09-23 10:58] LABS: Glucose,Whole Blood 230 mg/dL (70-110)
[2024-09-23] MEDS: ENOXAPARIN 40 MG/0.4 ML SYRINGE SQ SCH (12:03)
[2024-09-23 12:05] LABS: Glucose,Whole Blood 223 mg/dL (70-110)
[2024-09-23 12:08] VITALS: BP 148/106; PULSE 84
[2024-09-23 13:24] LABS: Glucose,Whole Blood 200 mg/dL (70-110)
[2024-09-23 14:04] LABS: Glucose,Whole Blood 160 mg/dL (70-110)
--- NOTE | 2024-09-24 10:51 | DS ---
DISCHARGE SUMMARY CHIEF COMPLAINT: Nausea, vomiting, and DKA. HISTORY OF PRESENT ILLNESS AND PHYSICAL EXAMINATION: Details of this man's history and physical can be found in the initial workup. LABORATORY STUDIES: While he was in the hospital, he had laboratory studies, details of which can be found in the laboratory section of his chart. COURSE IN THE HOSPITAL: After admission, he was placed on bedrest, started on intravenous fluids and antiemetics. Blood sugars came down and nausea and vomiting improved. He was about to be transitioned over to his basal bolus program along with a diet advance, but then he signed out AMA. FINAL DIAGNOSES: 1. Diabetic ketoacidosis. 2. Dehydration. 3. Intractable nausea and vomiting. 4. Gastroparesis. 5. Peripheral neuropathy. 6. Noncompliant patient. 7. Uncontrolled type 1 insulin-dependent diabetes mellitus. 8. Depression. OPERATIONS: None. GRACE / ALDEN: [id number] /
== END 2024-09-23 14:28 | disposition left against medical advice (07) | DRG 420 ==
LOC: EC 13:26 → 3SCARD 16:06
PROVIDERS: ADMIT Family Medicine; ATTEND Family Medicine
DX: E10.10 Type 1 diabetes mellitus with ketoacidosis without coma (principal); Z53.29 Procedure and treatment not carried out because of patient's decision for other reasons; F17.210 Nicotine dependence, cigarettes, uncomplicated; E10.42 Type 1 diabetes mellitus with diabetic polyneuropathy; E10.43 Type 1 diabetes mellitus with diabetic autonomic (poly)neuropathy; E86.0 Dehydration; F32.A Depression, unspecified; J45.909 Unspecified asthma, uncomplicated; K31.84 Gastroparesis; Z79.4 Long term (current) use of insulin; Z82.49 Family history of ischemic heart disease and other diseases of the circulatory system; Z91.199 Patient's noncompliance with other medical treatment and regimen due to unspecified reason
CPT/HCPCS: 36415; 80051; 80053; 81003; 82009; 82150; 82565; 82803; 82947; 83605; 83690; 84100; 84520; 85025; 93005; 96361; 96374; 96375; 99291

== ENCOUNTER 2024-09-29 09:11 | Inpatient (IN) | payer OTHER ==
[2024-09-29 09:27] LABS: Glucose,Whole Blood >600 mg/dL (70-110)
[2024-09-29] MEDS: SODIUM CHLORIDE 0.9% 2,000 ML IV STA (09:53)
[2024-09-29] MEDS: ONDANSETRON 4 MG/2 ML VIAL IVP STA (09:53)
[2024-09-29 09:54] LABS: Basophils # (A) 0.11 10*3/uL (0.00-0.10); Basophils % (A) 1.3 %; Eosinophils % (A) 3.5 %; HCT 42.4 % (39.6-50.0); HGB 14.1 g/dL (13.0-17.0); Lymphocytes # (A) 2.93 10*3/uL (0.90-5.00); Lymphocytes % (A) 34.6 %; MCH 28.4 pg (27.0-32.0); MCHC 33.3 g/dL (32.0-37.0); MCV 85.5 fL (80.0-97.0); Mean Platelet Volume 9.3 fL (9.5-12.2); Monocytes # (A) 0.49 10*3/uL (0.20-1.00); Monocytes % (A) 5.8 %; Neutrophils # (A) 4.61 10*3/uL (1.80-7.70); Neutrophils % (A) 54.6 %; Platelet Count 381 10*3/uL (140-440); RBC 4.96 10*6/uL (4.40-5.60); RDW 14.8 % (11.5-14.5); WBC 8.46 10*3/uL (4.50-10.00)
[2024-09-29 09:54] LABS: VBG PH 7.39 (7.31-7.41)
[2024-09-29 10:03] LABS: ALT 17 U/L (4-49); AST 18 U/L (17-59); African American GFR (CKD) >90 (>60 ml/min/1.73 sqM); Albumin 4.9 g/dL (3.5-5.0); Alkaline Phosphatase 93 U/L (38-126); Anion Gap 18 mmol/L; Blood Urea Nitrogen 18 mg/dL (9-20); Calcium 10.1 mg/dL (8.4-10.2); Carbon Dioxide 23 mmol/L (22-30); Chloride 92 mmol/L (98-107); Lipase 49 U/L (23-300); Non-African American GFR(CKD) >90 (>60 ml/min/1.73 sqM); Potassium 5.2 mmol/L (3.5-5.1); Sodium 133 mmol/L (137-145); Total Bilirubin 0.8 mg/dL (0.2-1.3); Total Protein 7.8 g/dL (6.3-8.2)
[2024-09-29 10:20] LABS: Glucose 695 mg/dL (74-99)
[2024-09-29] MEDS ORDERED: Potassium Replacement Protocol 1 EACH MISC MISCELLANE PRN (11:35)
[2024-09-29] MEDS ORDERED: DEXTROSE 50% SYRINGE 50 ML IVP PRN ×2 (11:35)
[2024-09-29] MEDS ORDERED: Magnesium Replacement Protocol 1 EACH MISC MISCELLANE PRN (11:35)
[2024-09-29 12:08] LABS: Appearance,Urine Clear (Clear); Bilirubin,Urine Negative (Negative); Blood,Urine Negative (Negative); Color,Urine Colorless; Glucose,Urine (UA) 4+ (Negative); Leukocyte Esterase,Urine Negative (Negative); Nitrite,Urine Negative (Negative); PH, Urine 5.5 (5.0-8.0); Protein,Urine Negative (Negative); Specific Gravity,Urine 1.032 (1.001-1.035); Urobilinogen,Urine <2.0 mg/dL (<2.0)
[2024-09-29 12:19] LABS: Glucose,Whole Blood 428 mg/dL (70-110)
[2024-09-29] MEDS: INSULIN REGULAR 100 UNIT in SODIUM CHLORIDE 0.9% 100 ML IV SCH (12:25)
[2024-09-29] MEDS: SODIUM CHLORIDE 0.9% 1,000 ML IV SCH (12:25)
[2024-09-29 12:42] LABS: Ketones,Urine 2+ (Negative)
[2024-09-29] MEDS ORDERED: NALOXONE 0.4 MG/ML 1 ML VIAL IV PRN (12:47)
[2024-09-29] MEDS ORDERED: ONDANSETRON 4 MG/2 ML VIAL IVP PRN (12:47)
--- NOTE | 2024-09-29 12:47 | ED ---
General Adult HPI - General Chief complaint: Nausea/Vomiting/Diarrhea Stated complaint: ABD Pain Time Seen by Provider: 09/29/24 09:30 Source: patient Mode of arrival: ambulatory Limitations: no limitations - History of Present Illness Initial comments: 29-year-old male with past medical history of diabetes who presents emergency department with nausea vomiting. Patient is well-known to the emergency department for his medical noncompliance. Patient cannot provide much history due to his active heaving. Denies taking any insulin today but does admit that he took a short acting yesterday. He denies any fevers. No chest pain or difficulty breathing. Glucose monitor reads high. No other alleviating, precipitating modifying factors - Related Data Home Medications Medication Instructions Recorded Confirmed INSULIN LISPRO (humaLOG) [humaLOG] 7 units SQ AC-TID 06/20/24 09/29/24 Insulin Glargine (Lantus) [Lantus 20 unit SQ DAILY 06/20/24 09/29/24 Vial] Allergies Allergy/AdvReac Type Severity Reaction Status Date / Time No Known Allergies Allergy Verified 09/29/24 12:11 Review of Systems ROS Statement: Those systems with pertinent positive or pertinent negative responses have been documented in the HPI. ROS Other: All systems not noted in ROS Statement are negative. Past Medical History Past Medical History: Asthma, Diabetes Mellitus, Neurologic Disorder, Skin Disorder Additional Past Medical History / Comment(s): IDDM type I, neuropathy bilateral feet, DKA, eczema,gastritis, anxiety, depression History of Any Multi-Drug Resistant Organisms: None Reported Past Surgical History: Adenoidectomy Additional Past Surgical History / Comment(s): gastritis Past Anesthesia/Blood Transfusion Reactions: No Reported Reaction Past Psychological History: Anxiety, Depression Smoking Status: Current every day smoker Past Alcohol Use History: None Reported Past Drug Use History: Marijuana - Past Family History Mother Family Medical History: CVA/TIA Additional Family Medical History / Comment(s): TIA Father Family Medical History: Hyperlipidemia, Hypertension Additional Family Medical History / Comment(s): . General Exam Limitations: no limitations Course Vital Signs 09/29/24 09/29/24 09/29/24 09:21 09:26 10:00 Temperature 97.3 F L Pulse Rate 116 H 105 H 90 Respiratory 20 24 24 Rate Blood Pressure 139/88 145/100 139/93 O2 Sat by Pulse 100 98 96 Oximetry 09/29/24 12:00 Temperature Pulse Rate 69 Respiratory 20 Rate Blood Pressure 130/86 O2 Sat by Pulse 98 Oximetry Medical Decision Making - Lab Data Result diagrams: 09/29/24 09:48 09/29/24 09:48 Lab Results 09/29/24 09/29/24 09/29/24 Range/Units 09: 09:48 09:48 WBC 8.46 (4.50-10.00) 10*3/uL RBC 4.96 (4.40-5.60) 10*6/uL Hgb 14.1 (13.0-17.0) g/dL Hct 42.4 (39.6-50.0) % MCV 85.5 (80.0-97.0) fL MCH 28.4 (27.0-32.0) pg MCHC 33.3 (32.0-37.0) g/dL Plt Count 381 (140-440) 10*3/uL MPV 9.3 L (9.5-12.2) fL Immature Gran % (Auto) 0.2 % Neutrophils % 54.6 % Lymphocytes % 34.6 % Monocytes % 5.8 % Eosinophils % 3.5 % Basophils % 1.3 % Immature Gran # 0.02 (0.00-0.04) 10*3/uL Neutrophils # 4.61 (1.80-7.70) 10*3/uL Lymphocytes # 2.93 (0.90-5.00) 10*3/uL Monocytes # 0.49 (0.20-1.00) 10*3/uL Eosinophils # 0.30 (0.04-0.35) 10*3/uL Basophils # 0.11 H (0.00-0.10) 10*3/uL VBG pH (7.31-7.41) VBG pCO2 (37-51) mmHg VBG HCO3 (24-28) mmol/L Sodium 133 L (137-145) mmol/L Potassium 5.2 H (3.5-5.1) mmol/L Chloride 92 L (98-107) mmol/L Carbon Dioxide 23 (22-30) mmol/L Anion Gap 18 mmol/L BUN 18 (9-20) mg/dL Creatinine 0.81 (0.66-1.25) mg/dL Est GFR (CKD-EPI)AfAm >90 (>60 ml/min/1.73 sqM) Est GFR (CKD-EPI)NonAf >90 (>60 ml/min/1.73 sqM) Glucose 695 H* (74-99) mg/dL POC Glucose (mg/dL) >600 H* (70-110) mg/dL POC Glu Career Development Specialist ID Sean Soria Plasma Lactic Acid Len (0.7-2.0) mmol/L Calcium 10.1 (8.4-10.2) mg/dL Total Bilirubin 0.8 (0.2-1.3) mg/dL AST 18 (17-59) U/L ALT 17 (4-49) U/L Alkaline Phosphatase 93 (38-126) U/L Total Protein 7.8 (6.3-8.2) g/dL Albumin 4.9 (3.5-5.0) g/dL Lipase 49 (23-300) U/L Urine Color Urine Appearance (Clear) Urine pH (5.0-8.0) Ur Specific [place] (1.001-1.035) Urine Protein (Negative) Urine Glucose (UA) (Negative) Urine Ketones (Negative) Urine Blood (Negative) Urine Nitrite (Negative) Urine Bilirubin (Negative) Urine Urobilinogen (<2.0) mg/dL Ur Leukocyte Esterase (Negative) Acetone, Qual Positive (Negative) 09/29/24 09/29/24 09/29/24 Range/Units 09:49 09:49 11:59 WBC (4.50-10.00) 10*3/uL RBC (4.40-5.60) 10*6/uL Hgb (13.0-17.0) g/dL Hct (39.6-50.0) % MCV (80.0-97.0) fL MCH (27.0-32.0) pg MCHC (32.0-37.0) g/dL Plt Count (140-440) 10*3/uL MPV (9.5-12.2) fL Immature Gran % (Auto) % Neutrophils % % Lymphocytes % % Monocytes % % Eosinophils % % Basophils % % Immature Gran # (0.00-0.04) 10*3/uL Neutrophils # (1.80-7.70) 10*3/uL Lymphocytes # (0.90-5.00) 10*3/uL Monocytes # (0.20-1.00) 10*3/uL Eosinophils # (0.04-0.35) 10*3/uL Basophils # (0.00-0.10) 10*3/uL VBG pH 7.39 (7.31-7.41) VBG pCO2 45 (37-51) mmHg VBG HCO3 27 (24-28) mmol/L Sodium (137-145) mmol/L Potassium (3.5-5.1) mmol/L Chloride (98-107) mmol/L Carbon Dioxide (22-30) mmol/L Anion Gap mmol/L BUN (9-20) mg/dL Creatinine (0.66-1.25) mg/dL Est GFR (CKD-EPI)AfAm (>60 ml/min/1.73 sqM) Est GFR (CKD-EPI)NonAf (>60 ml/min/1.73 sqM) Glucose (74-99) mg/dL POC Glucose (mg/dL) (70-110) mg/dL POC Glu Career Development Specialist ID Plasma Lactic Acid Len 1.8 (0.7-2.0) mmol/L Calcium (8.4-10.2) mg/dL Total Bilirubin (0.2-1.3) mg/dL AST (17-59) U/L ALT (4-49) U/L Alkaline Phosphatase (38-126) U/L Total Protein (6.3-8.2) g/dL Albumin (3.5-5.0) g/dL Lipase (23-300) U/L Urine Color Colorless Urine Appearance Clear (Clear) Urine pH 5.5 (5.0-8.0) Ur Specific [place] 1.032 (1.001-1.035) Urine Protein Negative (Negative) Urine Glucose (UA) 4+ H (Negative) Urine Ketones 2+ H (Negative) Urine Blood Negative (Negative) Urine Nitrite Negative (Negative) Urine Bilirubin Negative (Negative) Urine Urobilinogen <2.0 (<2.0) mg/dL Ur Leukocyte Esterase Negative (Negative) Acetone, Qual (Negative) 09/29/24 Range/Units 12:18 WBC (4.50-10.00) 10*3/uL RBC (4.40-5.60) 10*6/uL Hgb (13.0-17.0) g/dL Hct (39.6-50.0) % MCV (80.0-97.0) fL MCH (27.0-32.0) pg MCHC (32.0-37.0) g/dL Plt Count (140-440) 10*3/uL MPV (9.5-12.2) fL Immature Gran % (Auto) % Neutrophils % % Lymphocytes % % Monocytes % % Eosinophils % % Basophils % % Immature Gran # (0.00-0.04) 10*3/uL Neutrophils # (1.80-7.70) 10*3/uL Lymphocytes # (0.90-5.00) 10*3/uL Monocytes # (0.20-1.00) 10*3/uL Eosinophils # (0.04-0.35) 10*3/uL Basophils # (0.00-0.10) 10*3/uL VBG pH (7.31-7.41) VBG pCO2 (37-51) mmHg VBG HCO3 (24-28) mmol/L Sodium (137-145) mmol/L Potassium (3.5-5.1) mmol/L Chloride (98-107) mmol/L Carbon Dioxide (22-30) mmol/L Anion Gap mmol/L BUN (9-20) mg/dL Creatinine (0.66-1.25) mg/dL Est GFR (CKD-EPI)AfAm (>60 ml/min/1.73 sqM) Est GFR (CKD-EPI)NonAf (>60 ml/min/1.73 sqM) Glucose (74-99) mg/dL POC Glucose (mg/dL) 428 H (70-110) mg/dL POC Glu Career Development Specialist ID Greer Arturo Plasma Lactic Acid Len (0.7-2.0) mmol/L Calcium (8.4-10.2) mg/dL Total Bilirubin (0.2-1.3) mg/dL AST (17-59) U/L ALT (4-49) U/L Alkaline Phosphatase (38-126) U/L Total Protein (6.3-8.2) g/dL Albumin (3.5-5.0) g/dL Lipase (23-300) U/L Urine Color Urine Appearance (Clear) Urine pH (5.0-8.0) Ur Specific [place] (1.001-1.035) Urine Protein (Negative) Urine Glucose (UA) (Negative) Urine Ketones (Negative) Urine Blood (Negative) Urine Nitrite (Negative) Urine Bilirubin (Negative) Urine Urobilinogen (<2.0) mg/dL Ur Leukocyte Esterase (Negative) Acetone, Qual (Negative) Disposition Clinical Impression: DKA (diabetic ketoacidoses), Non-adherence to medical treatment, Nausea & vomiting Disposition: ADMITTED IP TO THIS [facility] Condition: Stable Is patient prescribed a controlled substance at d/c from ED?: No Referrals: Brown Valenzuela MD [Primary Care Provider] - 1-2 days Time of Disposition: 12:47 Decision to Admit Reason: Admit from EC Decision Date: 09/29/24 Decision Time: 12:47
[2024-09-29 13:08] LABS: African American GFR (CKD) >90 (>60 ml/min/1.73 sqM); Anion Gap 17 mmol/L; Blood Urea Nitrogen 18 mg/dL (9-20); Carbon Dioxide 22 mmol/L (22-30); Chloride 99 mmol/L (98-107); Glucose 457 mg/dL (74-99); Non-African American GFR(CKD) >90 (>60 ml/min/1.73 sqM); Phosphorus 3.3 mg/dL (2.5-4.5); Potassium 5.2 mmol/L (3.5-5.1); Sodium 138 mmol/L (137-145)
[2024-09-29 13:09] LABS: Glucose,Whole Blood 353 mg/dL (70-110)
[2024-09-29 14:07] LABS: Glucose,Whole Blood 249 mg/dL (70-110)
[2024-09-29] MEDS: D5-0.45% NACL WITH KCL 20MEQ/L 1,000 ML IV SCH (14:37)
[2024-09-29 15:12] LABS: Glucose,Whole Blood 181 mg/dL (70-110)
[2024-09-29 16:04] LABS: Glucose,Whole Blood 169 mg/dL (70-110)
[2024-09-29 16:35] LABS: African American GFR (CKD) >90 (>60 ml/min/1.73 sqM); Anion Gap 14 mmol/L; Blood Urea Nitrogen 17 mg/dL (9-20); Carbon Dioxide 24 mmol/L (22-30); Chloride 103 mmol/L (98-107); Glucose 138 mg/dL (74-99); Non-African American GFR(CKD) >90 (>60 ml/min/1.73 sqM); Phosphorus 1.9 mg/dL (2.5-4.5); Potassium 3.9 mmol/L (3.5-5.1); Sodium 141 mmol/L (137-145)
[2024-09-29 17:17] LABS: Glucose,Whole Blood 87 mg/dL (70-110)
[2024-09-29 17:49] LABS: Glucose,Whole Blood 86 mg/dL (70-110)
[2024-09-29 18:21] LABS: Glucose,Whole Blood 110 mg/dL (70-110)
[2024-09-29 19:06] LABS: Glucose,Whole Blood 136 mg/dL (70-110)
[2024-09-29 20:10] LABS: Glucose,Whole Blood 127 mg/dL (70-110)
[2024-09-29 20:23] LABS: African American GFR (CKD) >90 (>60 ml/min/1.73 sqM); Anion Gap 10 mmol/L; Blood Urea Nitrogen 18 mg/dL (9-20); Calcium 8.9 mg/dL (8.4-10.2); Carbon Dioxide 22 mmol/L (22-30); Chloride 104 mmol/L (98-107); Glucose 135 mg/dL (74-99); Non-African American GFR(CKD) >90 (>60 ml/min/1.73 sqM); Potassium 4.1 mmol/L (3.5-5.1); Sodium 136 mmol/L (137-145)
[2024-09-29 21:22] LABS: Glucose,Whole Blood 106 mg/dL (70-110)
[2024-09-29 22:06] LABS: Glucose,Whole Blood 103 mg/dL (70-110)
[2024-09-29 23:08] LABS: Glucose,Whole Blood 132 mg/dL (70-110)
[2024-09-30 00:10] LABS: Glucose,Whole Blood 180 mg/dL (70-110)
[2024-09-30 00:15] LABS: African American GFR (CKD) >90 (>60 ml/min/1.73 sqM); Anion Gap 11 mmol/L; Blood Urea Nitrogen 17 mg/dL (9-20); Calcium 9.1 mg/dL (8.4-10.2); Carbon Dioxide 23 mmol/L (22-30); Chloride 98 mmol/L (98-107); Glucose 152 mg/dL (74-99); Non-African American GFR(CKD) >90 (>60 ml/min/1.73 sqM); Potassium 4.2 mmol/L (3.5-5.1); Sodium 132 mmol/L (137-145)
[2024-09-30 01:10] LABS: Glucose,Whole Blood 166 mg/dL (70-110)
[2024-09-30 02:09] LABS: Glucose,Whole Blood 225 mg/dL (70-110)
--- NOTE | 2024-09-30 03:03 | HP ---
HISTORY AND PHYSICAL CHIEF COMPLAINT: DKA. HISTORY OF PRESENT ILLNESS: This is another admission for this young man, who is noncompliant type 1 insulin- dependent diabetic. He has left the hospital AMA several days ago. He is now back in with a blood sugar of almost 700. His gap is 18. He has intractable vomiting. REVIEW OF SYSTEMS: Not obtainable. Past medical history, family history, personal and social histories are unchanged. PHYSICAL EXAMINATION: VITAL SIGNS: Blood pressure of 98/60 with a pulse of 126. GENERAL: He was dehydrated. HEAD, EARS, EYES, NOSE, MOUTH AND THROAT: Normal. CHEST: Clear. CARDIAC: Normal except for tachycardia. ABDOMEN: Flat, soft, and nontender. Bowel sounds are present. EXTREMITIES: Normal. IMPRESSION: 1. Diabetic ketoacidosis. 2. Depression. PLAN: 1. Bedrest. 2. IV fluids. 3. DKA protocol. MMODL / IJN: [id number] /
[2024-09-30 03:06] LABS: Glucose,Whole Blood 226 mg/dL (70-110)
[2024-09-30 04:08] LABS: Glucose,Whole Blood 249 mg/dL (70-110)
[2024-09-30 04:30] LABS: Basophils % (A) 0.8 %; Eosinophils % (A) 2.5 %; HCT 36.9 % (39.6-50.0); HGB 12.1 g/dL (13.0-17.0); Lymphocytes # (A) 4.14 10*3/uL (0.90-5.00); Lymphocytes % (A) 34.5 %; MCH 27.9 pg (27.0-32.0); MCHC 32.8 g/dL (32.0-37.0); Mean Platelet Volume 8.9 fL (9.5-12.2); Monocytes # (A) 0.81 10*3/uL (0.20-1.00); Monocytes % (A) 6.8 %; Neutrophils # (A) 6.61 10*3/uL (1.80-7.70); Neutrophils % (A) 55.1 %; Platelet Count 349 10*3/uL (140-440); RBC 4.34 10*6/uL (4.40-5.60); RDW 14.6 % (11.5-14.5); WBC 11.99 10*3/uL (4.50-10.00)
[2024-09-30 04:52] LABS: African American GFR (CKD) >90 (>60 ml/min/1.73 sqM); Anion Gap 12 mmol/L; Blood Urea Nitrogen 14 mg/dL (9-20); Calcium 8.9 mg/dL (8.4-10.2); Carbon Dioxide 21 mmol/L (22-30); Chloride 96 mmol/L (98-107); Glucose 243 mg/dL (74-99); Non-African American GFR(CKD) >90 (>60 ml/min/1.73 sqM); Potassium 4.3 mmol/L (3.5-5.1); Sodium 129 mmol/L (137-145)
[2024-09-30 05:12] LABS: Glucose,Whole Blood 249 mg/dL (70-110)
[2024-09-30 06:02] LABS: Glucose,Whole Blood 257 mg/dL (70-110)
[2024-09-30 07:17] LABS: Glucose,Whole Blood 333 mg/dL (70-110)
[2024-09-30 08:02] LABS: Glucose,Whole Blood 273 mg/dL (70-110)
[2024-09-30 08:58] LABS: Glucose,Whole Blood 251 mg/dL (70-110)
[2024-09-30 09:40] LABS: African American GFR (CKD) >90 (>60 ml/min/1.73 sqM); Anion Gap 14 mmol/L; Blood Urea Nitrogen 13 mg/dL (9-20); Calcium 8.7 mg/dL (8.4-10.2); Carbon Dioxide 18 mmol/L (22-30); Chloride 97 mmol/L (98-107); Glucose 308 mg/dL (74-99); Non-African American GFR(CKD) >90 (>60 ml/min/1.73 sqM); Potassium 4.6 mmol/L (3.5-5.1); Sodium 129 mmol/L (137-145)
[2024-09-30 09:50] VITALS: TEMP 97.5
[2024-09-30 10:23] LABS: Glucose,Whole Blood 272 mg/dL (70-110)
[2024-09-30 11:11] LABS: Glucose,Whole Blood 206 mg/dL (70-110)
[2024-09-30 12:11] LABS: Glucose,Whole Blood 176 mg/dL (70-110)
[2024-09-30] MEDS: INSULIN LISPRO (HumaLOG) 100 UNIT/ML 10 mL VL SQ SCH (12:50)
[2024-09-30 13:10] LABS: African American GFR (CKD) >90 (>60 ml/min/1.73 sqM); Anion Gap 9 mmol/L; Blood Urea Nitrogen 11 mg/dL (9-20); Calcium 9.1 mg/dL (8.4-10.2); Carbon Dioxide 24 mmol/L (22-30); Chloride 98 mmol/L (98-107); Glucose 161 mg/dL (74-99); Non-African American GFR(CKD) >90 (>60 ml/min/1.73 sqM); Potassium 4.3 mmol/L (3.5-5.1); Sodium 131 mmol/L (137-145)
[2024-09-30 13:17] LABS: Glucose,Whole Blood 157 mg/dL (70-110)
[2024-09-30] MEDS: INSULIN GLARGINE (LANTUS) 100 UNIT/ML SYR SQ SCH (13:47)
[2024-09-30 14:05] LABS: Glucose,Whole Blood 144 mg/dL (70-110)
[2024-09-30 14:34] VITALS: BMI 19.2
[2024-09-30 16:39] VITALS: BP 121/84; PULSE 92; RESP 17
[2024-09-30 17:24] LABS: Glucose,Whole Blood 295 mg/dL (70-110)
[2024-09-30 20:07] LABS: Glucose,Whole Blood 317 mg/dL (70-110)
--- NOTE | 2024-10-01 07:10 | PN ---
PROGRESS NOTE CHIEF COMPLAINT: DKA and intractable nausea and vomiting. HISTORY OF PRESENT ILLNESS: This gentleman is sleeping and difficult to arouse. Sugars are improving and gap is closing. PHYSICAL EXAMINATION: CHEST: Clear. IMPRESSION: 1. Diabetic ketoacidosis. 2. Dehydration. 3. Intractable nausea and vomiting. 4. Depression. PLAN: Continue on the protocol until he is awake and alert and then transition him. MMODL / IJN: [id number] /
--- NOTE | 2024-10-01 13:10 | DS ---
DISCHARGE SUMMARY CHIEF COMPLAINT: Diabetic ketoacidosis. HISTORY OF PRESENT ILLNESS AND PHYSICAL EXAMINATION: Details of this man's history and physical can be found in the initial workup. LABORATORY STUDIES: While he was in a hospital, he had laboratory studies, details of which can be found in the laboratory section of his chart. COURSE IN THE HOSPITAL: After admission, he was placed on bedrest, started on intravenous fluids and DKA protocol. His gap closed. He was doing well and he signed out AMA once again. FINAL DIAGNOSES: 1. Diabetic ketoacidosis. 2. Type 1 insulin-dependent diabetes mellitus. 3. Noncompliant patient. 4. Depression. OPERATIONS: None. CONSULTATIONS: None. He is improved. MMODL / IJN: [id number] /
== END 2024-09-30 21:08 | disposition left against medical advice (07) | DRG 420 ==
LOC: EC 09:11 → 3SCARD 12:47
PROVIDERS: ADMIT Family Medicine; ATTEND Family Medicine
DX: E10.10 Type 1 diabetes mellitus with ketoacidosis without coma (principal); E86.0 Dehydration; F17.200 Nicotine dependence, unspecified, uncomplicated; F32.A Depression, unspecified; E10.40 Type 1 diabetes mellitus with diabetic neuropathy, unspecified; Z91.199 Patient's noncompliance with other medical treatment and regimen due to unspecified reason; J45.909 Unspecified asthma, uncomplicated; E10.65 Type 1 diabetes mellitus with hyperglycemia; F41.9 Anxiety disorder, unspecified; Z53.29 Procedure and treatment not carried out because of patient's decision for other reasons; R11.2 Nausea with vomiting, unspecified; Z79.4 Long term (current) use of insulin; Z71.3 Dietary counseling and surveillance; Z79.82 Long term (current) use of aspirin
CPT/HCPCS: 36415; 80048; 80051; 80053; 81003; 82009; 82565; 82803; 82947; 83036; 83605; 83690; 84100; 84520; 85025; 96361; 96365; 96375; 99291

== ENCOUNTER 2024-10-02 02:46 | Inpatient (IN) | payer OTHER ==
[2024-10-02 02:55] LABS: Glucose,Whole Blood 495 mg/dL (70-110)
--- NOTE | 2024-10-02 03:20 | ED ---
Nausea/Vomiting/Diarrhea HPI - General Chief complaint: Nausea/Vomiting/Diarrhea Stated complaint: Vomiting Time Seen by Provider: 10/02/24 03:11 Source: patient, EMS Mode of arrival: EMS Limitations: altered mental status - History of Present Illness Initial comments: Patient is a 29-year-old male with history of diabetes and multiple presentations for DKA who was brought by EMS to have evaluation for persistent nausea and vomiting. When I interviewed the patient, he does appear delirious. He is able to answer simple yes/no questions but otherwise not wanting to provide much history. MD complaint: vomiting, abdominal pain -: unknown - Related Data Home Medications Medication Instructions Recorded Confirmed INSULIN LISPRO (humaLOG) [humaLOG] 7 units SQ AC-TID 06/20/24 10/08/24 Insulin Glargine (Lantus) [Lantus 25 unit SQ DAILY 06/20/24 10/08/24 Vial] Allergies Allergy/AdvReac Type Severity Reaction Status Date / Time No Known Allergies Allergy Verified 10/08/24 17:39 Review of Systems ROS Statement: Those systems with pertinent positive or pertinent negative responses have been documented in the HPI. ROS Other: All systems not noted in ROS Statement are negative. Limitations: ROS unobtainable due to patients medical condition Past Medical History Past Medical History: Asthma, Diabetes Mellitus, Neurologic Disorder, Skin Disorder Additional Past Medical History / Comment(s): IDDM type I, neuropathy bilateral feet, DKA, eczema,gastritis, anxiety, depression History of Any Multi-Drug Resistant Organisms: None Reported Past Surgical History: Adenoidectomy Additional Past Surgical History / Comment(s): gastritis Past Anesthesia/Blood Transfusion Reactions: No Reported Reaction Past Psychological History: Anxiety, Depression Smoking Status: Current every day smoker Past Alcohol Use History: None Reported Past Drug Use History: Marijuana - Past Family History Mother Family Medical History: CVA/TIA Additional Family Medical History / Comment(s): TIA Father Family Medical History: Hyperlipidemia, Hypertension Additional Family Medical History / Comment(s): . General Exam Limitations: altered mental status General appearance: obtunded Head exam: Present: atraumatic, normocephalic Eye exam: Present: normal appearance, PERRL, EOMI. Absent: scleral icterus, conjunctival injection ENT exam: Present: mucous membranes dry Neck exam: Present: normal inspection, full ROM Respiratory exam: Present: normal lung sounds bilaterally, respiratory distress. Absent: wheezes, rales, rhonchi, stridor, accessory muscle use Cardiovascular Exam: Present: tachycardia, systolic murmur. Absent: diastolic murmur, rubs, gallop GI/Abdominal exam: Present: soft. Absent: distended, tenderness, guarding, rebound, rigid, mass Extremities exam: Present: normal inspection, normal capillary refill. Absent: pedal edema, calf tenderness Back exam: Present: normal inspection Neurological exam: Present: altered, CN II-XII intact. Absent: motor sensory deficit Skin exam: Present: warm, dry, intact, normal color. Absent: rash Course Vital Signs 10/02/24 10/02/24 10/02/24 02:48 04:35 07:19 Temperature 98.1 F Pulse Rate 129 H 134 H 123 H Respiratory 30 H 22 20 Rate Blood Pressure 138/106 124/83 135/89 O2 Sat by Pulse 99 95 98 Oximetry 10/02/24 10/02/24 10/02/24 08:27 10:00 11:00 Temperature Pulse Rate 114 H 117 H 106 H Respiratory 20 20 20 Rate Blood Pressure 131/91 106/71 112/76 O2 Sat by Pulse 96 96 96 Oximetry 10/02/24 11:34 Temperature Pulse Rate 106 H Respiratory 20 Rate Blood Pressure 130/90 O2 Sat by Pulse 98 Oximetry Medical Decision Making - Medical Decision Making Was pt. sent in by a medical professional or institution ([facility], [employer], urgent care, hospital, or alf...) When possible be specific @ -[No] Did you speak to anyone other than the patient for history (EMS, parent, family, police, friend...)? What history was obtained from this source @ -[EMS contributed history Did you review nursing and triage notes (agree or disagree)? Why? @ -[I reviewed and agree with nursing and triage notes] Were old charts reviewed (outside hosp., previous admission, EMS record, old EKG, old radiological studies, urgent care reports/EKG's, alf records)? Report findings @ -[Yes, old charts were reviewed] Differential Diagnosis (chest pain, altered mental status, abdominal pain women, abdominal pain men, vaginal bleeding, weakness, fever, dyspnea, syncope, headache, dizziness, GI bleed, back pain, seizure, CVA, palpatations, mental health, musculoskeletal)? @ -[Differential Altered Mental Status: Hypoglycemia, DKA, hypercapnia, ETOH, overdose, CO poisoning, trauma, myxedema coma, HTN encephalopathy, infection, encephalitis, psychosis, intercranial hemorrhage, hepatic encephalopathy, meningitis, CVA, this is not meant to be an all-inclusive list EKG interpreted by me (3pts min.). @ -[I interpreted as above X-rays interpreted by me (1pt min.). @ -[None done] CT interpreted by me (1pt min.). @ -[None done] U/S interpreted by me (1pt. min.). @ -[None done] What testing was considered but not performed or refused? (CT, X-rays, U/S, labs )? Why? @ -[None] What meds were considered but not given or refused? Why? @ -[None] Did you discuss the management of the patient with other professionals (professionals i.e. , PA, [employer], lab, RT, psych nurse, social service coordinator, .net architect, teacher, security officer, case liner)? Give summary @ -Case discussed with admitting physician Was smoking cessation discussed for >3mins.? @ -[No] Was critical care preformed (if so, how long)? @ -[Yes, 35 minutes Were there social determinants of health that impacted care today? How? (Homelessness, low income, unemployed, alcoholism, drug addiction, transp ortation, low edu. Level, literacy, decrease access to med. care, long-term, rehab)? @ -[No] Was there de-escalation of care discussed even if they declined (Discuss DNR or withdrawal of care, Hospice)? DNR status @ -[No] What co-morbidities impacted this encounter? (DM, HTN, Smoking, COPD, CAD, Cancer, CVA, ARF, Chemo, Hep., AIDS, mental health diagnosis, sleep apnea, morbid obesity)? @ -[Diabetes Was patient admitted / discharged? Hospital course, mention meds given and route, prescriptions, significant lab abnormalities, going to OR and other pertinent info. @ -[Patient is a 29-year-old man with history of diabetes and frequent admissions for DKA who presents in what clinically appears to be DKA. The labs do confirm hyperglycemia with elevated anion gap. The patient started on IV fluids and insulin. Patient is admitted for further care. Undiagnosed new problem with uncertain prognosis? @ -[No] Drug Therapy requiring intensive monitoring for toxicity (Heparin, Nitro, Insulin, Cardizem)? @ -[Insulin Were any procedures done? @ -[No] Diagnosis/symptom? @ -[Acute diabetic ketoacidosis Acute delirium Acute, or Chronic, or Acute on Chronic? @ -[Acute Uncomplicated (without systemic symptoms) or Complicated (systemic symptoms)? @ -[Complicated by mental status change Side effects of treatment? @ -[No] Exacerbation, Progression, or Severe Exacerbation? @ -[No] Poses a threat to life or bodily function? How? (Chest pain, [place], [place], pneumonia, PE, COPD, DKA, ARF, appy, cholecystitis, CVA, Diverticulitis, Homicidal, Suicidal, threat to staff... and all critical care pts) @ -[Yes there is significant morbidity and mortality associated with diabetic ketoacidosis All treatments are based on ideal body weight as in ED triage - Lab Data Result diagrams: 10/02/24 02:55 10/03/24 14:54 Lab Results 10/02/24 10/02/24 10/02/24 Range/Units 02:53 02:55 02:55 WBC 15.96 H (4.50-10.00) 10*3/uL RBC 5.48 (4.40-5.60) 10*6/uL Hgb 15.7 D (13.0-17.0) g/dL Hct 47.6 (39.6-50.0) % MCV 86.9 (80.0-97.0) fL MCH 28.6 (27.0-32.0) pg MCHC 33.0 (32.0-37.0) g/dL Plt Count 591 H (140-440) 10*3/uL MPV 10.1 (9.5-12.2) fL Immature Gran % (Auto) 0.8 % Neutrophils % 77.1 % Lymphocytes % 16.5 % Monocytes % 4.8 % Eosinophils % 0.1 % Basophils % 0.7 % Immature Gran # 0.12 H (0.00-0.04) 10*3/uL Neutrophils # 12.31 H (1.80-7.70) 10*3/uL Lymphocytes # 2.64 (0.90-5.00) 10*3/uL Monocytes # 0.77 (0.20-1.00) 10*3/uL Eosinophils # 0.01 L (0.04-0.35) 10*3/uL Basophils # 0.11 H (0.00-0.10) 10*3/uL Sodium 134 L (137-145) mmol/L Potassium 5.6 H (3.5-5.1) mmol/L Chloride 93 L (98-107) mmol/L Carbon Dioxide <5 L* (22-30) mmol/L Anion Gap mmol/L BUN 21 H (9-20) mg/dL Creatinine 1.33 H (0.66-1.25) mg/dL Est GFR (CKD-EPI)AfAm 85 (>60 ml/min/1.73 sqM) Est GFR (CKD-EPI)NonAf 73 (>60 ml/min/1.73 sqM) Glucose 575 H* (74-99) mg/dL POC Glucose (mg/dL) 495 H (70-110) mg/dL POC Glu English Professor ID Nani Jaiden Phosphorus 6.8 H (2.5-4.5) mg/dL Acetone, Qual Positive (Negative) - EKG Data -: EKG Interpreted by Me EKG shows normal: sinus rhythm, axis (Right axis deviation), intervals (Normal), QRS complexes (Incomplete right bundle branch block) Rate: tachycardia (Rate 136 bpm) Disposition Clinical Impression: IDDM (insulin dependent diabetes mellitus), DKA (diabetic ketoacidoses) Disposition: ADMITTED IP TO THIS HOSP Condition: Serious Is patient prescribed a controlled substance at d/c from ED?: No
[2024-10-02] MEDS: ONDANSETRON 4 MG/2 ML VIAL IVP STA (03:26)
[2024-10-02] MEDS: SODIUM CHLORIDE 0.9% 1,000 ML IV SCH (03:27)
[2024-10-02 03:28] LABS: African American GFR (CKD) 85 (>60 ml/min/1.73 sqM); Blood Urea Nitrogen 21 mg/dL (9-20); Chloride 93 mmol/L (98-107); Non-African American GFR(CKD) 73 (>60 ml/min/1.73 sqM); Phosphorus 6.8 mg/dL (2.5-4.5); Potassium 5.6 mmol/L (3.5-5.1); Sodium 134 mmol/L (137-145)
[2024-10-02] MEDS: INSULIN REGULAR BOLUS (FROM DRIP BAG) IV ONE (03:29)
[2024-10-02] MEDS: INSULIN REGULAR 100 UNIT in SODIUM CHLORIDE 0.9% 100 ML IV SCH ×2 (03:30→06:00)
[2024-10-02 03:39] LABS: Carbon Dioxide <5 mmol/L (22-30); Glucose 575 mg/dL (74-99)
[2024-10-02 03:58] LABS: VBG PH 7.11 (7.31-7.41)
[2024-10-02 04:32] LABS: Glucose,Whole Blood 370 mg/dL (70-110)
[2024-10-02 05:32] LABS: Glucose,Whole Blood 279 mg/dL (70-110)
[2024-10-02] MEDS ORDERED: Magnesium Replacement Protocol 1 EACH MISC MISCELLANE PRN (05:45)
[2024-10-02] MEDS ORDERED: DEXTROSE 50% SYRINGE 50 ML IVP PRN ×2 (05:45)
[2024-10-02] MEDS ORDERED: Potassium Replacement Protocol 1 EACH MISC MISCELLANE PRN (05:45)
[2024-10-02] MEDS: D5-0.45% NACL WITH KCL 20MEQ/L 1,000 ML IV SCH (06:00)
[2024-10-02] MEDS ORDERED: DEXTROSE 5%-0.45% NACL 1,000 ML IV SCH (06:00)
[2024-10-02 06:35] LABS: Glucose,Whole Blood 251 mg/dL (70-110)
[2024-10-02 06:45] LABS: Basophils # (A) 0.11 10*3/uL (0.00-0.10); Basophils % (A) 0.7 %; Eosinophils # (A) 0.01 10*3/uL (0.04-0.35); Eosinophils % (A) 0.1 %; HCT 47.6 % (39.6-50.0); Lymphocytes # (A) 2.64 10*3/uL (0.90-5.00); Lymphocytes % (A) 16.5 %; MCH 28.6 pg (27.0-32.0); MCV 86.9 fL (80.0-97.0); Mean Platelet Volume 10.1 fL (9.5-12.2); Monocytes # (A) 0.77 10*3/uL (0.20-1.00); Monocytes % (A) 4.8 %; Neutrophils # (A) 12.31 10*3/uL (1.80-7.70); Neutrophils % (A) 77.1 %; Platelet Count 591 10*3/uL (140-440); RBC 5.48 10*6/uL (4.40-5.60); RDW 14.6 % (11.5-14.5); WBC 15.96 10*3/uL (4.50-10.00)
[2024-10-02 06:46] LABS: HGB 15.7 g/dL (13.0-17.0)
[2024-10-02 07:21] LABS: Glucose,Whole Blood 225 mg/dL (70-110)
[2024-10-02 07:36] LABS: Glucose,Whole Blood 240 mg/dL (70-110)
[2024-10-02 08:25] LABS: Glucose,Whole Blood 200 mg/dL (70-110)
[2024-10-02 08:55] LABS: African American GFR (CKD) >90 (>60 ml/min/1.73 sqM); Anion Gap 21 mmol/L; Blood Urea Nitrogen 24 mg/dL (9-20); Carbon Dioxide 14 mmol/L (22-30); Chloride 104 mmol/L (98-107); Glucose 236 mg/dL (74-99); Non-African American GFR(CKD) >90 (>60 ml/min/1.73 sqM); Phosphorus 3.4 mg/dL (2.5-4.5); Potassium 4.8 mmol/L (3.5-5.1); Sodium 139 mmol/L (137-145)
[2024-10-02 10:18] LABS: Glucose,Whole Blood 137 mg/dL (70-110)
[2024-10-02 11:11] LABS: Glucose,Whole Blood 116 mg/dL (70-110)
[2024-10-02] MEDS: METOCLOPRAMIDE 5 MG/ML 2 ML VIAL IVP SCH (11:12)
[2024-10-02 11:40] LABS: African American GFR (CKD) >90 (>60 ml/min/1.73 sqM); Anion Gap 12 mmol/L; Blood Urea Nitrogen 24 mg/dL (9-20); Calcium 9.4 mg/dL (8.4-10.2); Carbon Dioxide 21 mmol/L (22-30); Chloride 102 mmol/L (98-107); Glucose 114 mg/dL (74-99); Non-African American GFR(CKD) >90 (>60 ml/min/1.73 sqM); Sodium 135 mmol/L (137-145)
[2024-10-02 11:58] VITALS: TEMP 98.2
[2024-10-02 12:04] LABS: Glucose,Whole Blood 103 mg/dL (70-110)
[2024-10-02 12:30] LABS: Potassium 5.2 mmol/L (3.5-5.1)
[2024-10-02] MEDS: INSULIN LISPRO (HumaLOG) 100 UNIT/ML 10 mL VL SQ SCH (12:38)
[2024-10-02 12:59] LABS: Glucose,Whole Blood 93 mg/dL (70-110)
[2024-10-02 14:19] LABS: Glucose,Whole Blood 97 mg/dL (70-110)
[2024-10-02 16:22] LABS: Glucose,Whole Blood 110 mg/dL (70-110)
[2024-10-02] MEDS: INSULIN GLARGINE (LANTUS) 100 UNIT/ML SYR SQ SCH (17:27)
[2024-10-02 19:54] LABS: Glucose,Whole Blood 309 mg/dL (70-110)
[2024-10-03 00:58] LABS: Glucose,Whole Blood 281 mg/dL (70-110)
--- NOTE | 2024-10-03 02:37 | PN ---
PROGRESS NOTE DATE OF SERVICE: 10/02/2024 CHIEF COMPLAINT: Diabetic Ketoacidosis. HISTORY OF PRESENT ILLNESS: This gentleman remains lethargic and is still having some vomiting. PHYSICAL EXAMINATION: Chest is clear. The cardiac exam is normal. Abdomen is soft, nontender. IMPRESSION: 1. Diabetic Ketoacidosis. 2. Intractable nausea and vomiting. 3. Dehydration. 4. Delirium. PLAN: Continue with Diabetic Ketoacidosis protocol. MMODL / IJN: [id number] /
--- NOTE | 2024-10-03 03:24 | HP ---
HISTORY AND PHYSICAL CHIEF COMPLAINT: DKA. HISTORY OF PRESENT ILLNESS: This gentleman is back in. He just signed out of the hospital yesterday. Blood sugars up around 700 again. He is in DKA. REVIEW OF SYSTEMS: He is lethargic and confused. He is vomiting. Past medical history, family history, personal and social history are the same. PHYSICAL EXAMINATION: Sinus tachycardia, beats per minute. GENERAL: He is pale. He is dehydrated. HEAD, EARS, EYES, NOSE, MOUTH, AND THROAT: Otherwise normal. CHEST: Clear. CARDIAC: Normal. ABDOMEN: Soft and nontender. EXTREMITIES: Normal. He is semicomatose and delirious. IMPRESSION: Diabetic ketoacidosis with intractable vomiting. PLAN: 1. Bed rest. 2. IV fluids. 3. DKA protocol. 4. Reglan. GRACE / ALDEN: [id number] /
[2024-10-03 06:23] LABS: Glucose,Whole Blood 336 mg/dL (70-110)
[2024-10-03 11:25] LABS: Glucose,Whole Blood 285 mg/dL (70-110)
[2024-10-03 14:51] VITALS: BP 112/77; PULSE 116; RESP 17
[2024-10-03 15:30] LABS: African American GFR (CKD) >90 (>60 ml/min/1.73 sqM); Anion Gap 11 mmol/L; Blood Urea Nitrogen 11 mg/dL (9-20); Calcium 9.5 mg/dL (8.4-10.2); Carbon Dioxide 25 mmol/L (22-30); Chloride 95 mmol/L (98-107); Glucose 216 mg/dL (74-99); Non-African American GFR(CKD) >90 (>60 ml/min/1.73 sqM); Potassium 4.2 mmol/L (3.5-5.1); Sodium 131 mmol/L (137-145)
[2024-10-03 16:20] LABS: Glucose,Whole Blood 305 mg/dL (70-110)
--- NOTE | 2024-10-04 22:43 | DS ---
DISCHARGE SUMMARY CHIEF COMPLAINT: DKA. HISTORY OF PRESENT ILLNESS AND PHYSICAL EXAMINATION: Details of this man's history and physical can be found in the initial workup. LABORATORY STUDIES: While in the hospital, laboratory studies, details of which can be found laboratory section of his chart. COURSE IN THE HOSPITAL: After admission, the patient was placed on bedrest, started intravenous fluids and DKA protocol. persisted with nausea and vomiting. His gap closed and his regular basal bolus insulin program was instituted and he felt that he was able to go home. He will follow up in the office. FINAL DIAGNOSES: 1. Diabetic ketoacidosis. 2. Intractable nausea and vomiting. 3. Dehydration. 4. Gastroparesis. OPERATIONS: None. CONSULTATION: None. GRACE / TRAMN: [id number] /
== END 2024-10-03 16:52 | disposition home or self-care (01) | DRG 48 ==
LOC: EC 02:46 → 3SCARD 03:21
PROVIDERS: ADMIT Family Medicine; ATTEND Family Medicine
DX: E10.43 Type 1 diabetes mellitus with diabetic autonomic (poly)neuropathy (principal); E86.0 Dehydration; E10.42 Type 1 diabetes mellitus with diabetic polyneuropathy; K31.84 Gastroparesis; F17.210 Nicotine dependence, cigarettes, uncomplicated; E10.10 Type 1 diabetes mellitus with ketoacidosis without coma; Z79.4 Long term (current) use of insulin
CPT/HCPCS: 36415; 80048; 80051; 82009; 82565; 82803; 82947; 84100; 84520; 85025; 93005; 96361; 96374; 96375; 99291

== ENCOUNTER 2024-10-03 23:51 | Emergency (ER) | payer OTHER ==
[2024-10-03 23:57] VITALS: BP 124/88; PULSE 121; RESP 18; TEMP 98
[2024-10-04 00:25] LABS: Glucose,Whole Blood 274 mg/dL (70-110)
--- NOTE | 2024-10-04 00:25 | ED ---
Psych HPI - General Chief Complaint: Psychiatric Symptoms Stated Complaint: Mental Health Time Seen by Provider: 10/04/24 00:06 Source: patient, RN notes reviewed Mode of arrival: ambulatory - History of Present Illness Initial Comments: 29-year-old male presenting to the emergency department for complaints of suicidal ideation and auditory hallucinations. Patient states that he has continued auditory hallucinations where he states that someone is telling him to repeatedly kill himself. Patient denies current suicidal plan. He denies homicidal ideation, visual hallucinations. Patient states that he was admitted to a psychiatric hospital years in the past. States that he lost follow-up with psychiatrist. - Related Data Home Medications Medication Instructions Recorded Confirmed INSULIN LISPRO (humaLOG) [humaLOG] 7 units SQ AC-TID 06/20/24 10/02/24 Insulin Glargine (Lantus) [Lantus 25 unit SQ DAILY 06/20/24 10/02/24 Vial] Allergies Allergy/AdvReac Type Severity Reaction Status Date / Time No Known Allergies Allergy Verified 10/03/24 23:56 Review of Systems ROS Statement: Those systems with pertinent positive or pertinent negative responses have been documented in the HPI. ROS Other: All systems not noted in ROS Statement are negative. Past Medical History Past Medical History: Asthma, Diabetes Mellitus, Neurologic Disorder, Skin Disorder Additional Past Medical History / Comment(s): IDDM type I, neuropathy bilateral feet, DKA, eczema,gastritis, anxiety, depression History of Any Multi-Drug Resistant Organisms: None Reported Past Surgical History: Adenoidectomy Additional Past Surgical History / Comment(s): gastritis Past Anesthesia/Blood Transfusion Reactions: No Reported Reaction Past Psychological History: Anxiety, Depression Smoking Status: Current every day smoker Past Alcohol Use History: None Reported Past Drug Use History: Marijuana - Past Family History Mother Family Medical History: CVA/TIA Additional Family Medical History / Comment(s): TIA Father Family Medical History: Hyperlipidemia, Hypertension Additional Family Medical History / Comment(s): . General Exam Limitations: no limitations General appearance: alert, in no apparent distress ENT exam: Present: normal exam, mucous membranes moist Neck exam: Present: normal inspection. Absent: tenderness, meningismus, lymphadenopathy Respiratory exam: Present: normal lung sounds bilaterally. Absent: respiratory distress, wheezes, rales, rhonchi, stridor Cardiovascular Exam: Present: regular rate, normal rhythm, normal heart sounds. Absent: systolic murmur, diastolic murmur, rubs, gallop, clicks GI/Abdominal exam: Present: soft, normal bowel sounds. Absent: distended, tenderness, guarding, rebound, rigid Extremities exam: Present: normal inspection, full ROM, normal capillary refill. Absent: tenderness, pedal edema, joint swelling, calf tenderness Psychiatric exam: Present: depressed, flat affect, suicidal ideation. Absent: homicidal ideation Course Vital Signs 10/03/24 23:54 Temperature 98 F Pulse Rate 121 H Respiratory 18 Rate Blood Pressure 124/88 O2 Sat by Pulse 100 Oximetry Medical Decision Making - Medical Decision Making Was pt. sent in by a medical professional or institution (, PA, [employer]ING PRESSMAN, urgent care, hospital, or care home...) When possible be specific @ -No Did you speak to anyone other than the patient for history (EMS, parent, family, police, friend...)? What history was obtained from this source @ -No Did you review nursing and triage notes (agree or disagree)? Why? @ -I reviewed and agree with nursing and triage notes Were old charts reviewed (outside hosp., previous admission, EMS record, old EKG, old radiological studies, urgent care reports/EKG's, care home records)? Report findings @ -No old charts were reviewed Differential Diagnosis (chest pain, altered mental status, abdominal pain women, abdominal pain men, vaginal bleeding, weakness, fever, dyspnea, syncope, headache, dizziness, GI bleed, back pain, seizure, CVA, palpatations, mental health, musculoskeletal)? @ -Differential Mental Health Depression, anxiety, bipolar, psychosis, schizophrenia, borderline personality, situational depression, adjustment disorder, behavioral disorder, brain tumor, malingering, substance abuse, encephalopathy, medication reaction, dementia, hypothyroidism, degenerative neurologic disorder, lupus.... This is not meant to be all-inclusive list EKG interpreted by me (3pts min.). @ -None X-rays interpreted by me (1pt min.). @ -None done CT interpreted by me (1pt min.). @ -None done U/S interpreted by me (1pt. min.). @ -None done What testing was considered but not performed or refused? (CT, X-rays, U/S, labs)? Why? @ -None What meds were considered but not given or refused? Why? @ -None Did you discuss the management of the patient with other professionals (professionals i.e. Dr., PA, GLUING PRESSMAN, lab, RT, psych nurse, clinical social work therapist, wine fermenter, teacher, chief lending officer, case management rn)? Give summary @ -Spoke with on-call EPS nurse who has established appropriate safety plan with the patient very stable for discharge. Was smoking cessation discussed for >3mins.? @ -No Was critical care preformed (if so, how long)? @ -No Were there social determinants of health that impacted care today? How? (Homelessness, low income, unemployed, alcoholism, drug addiction, transportation, low edu. Level, literacy, decrease access to med. care, custodial, rehab)? @ -No Was there de-escalation of care discussed even if they declined (Discuss DNR or withdrawal of care, Hospice)? DNR status @ -No What co-morbidities impacted this encounter? (DM, HTN, Smoking, COPD, CAD, Cancer, CVA, ARF, Chemo, Hep., AIDS, mental health diagnosis, sleep apnea, morbid obesity)? @ -None Was patient admitted / discharged? Hospital course, mention meds given and route, prescriptions, significant lab abnormalities, going to OR and other pertinent info. @ -Discharged. 29-year-old male presents emergency department with suicidal ideation. Patient is elevated blood glucose of 274 is provided with subcu insulin. EPS evaluated patient where he has been discharged with safety plan in place. Case discussed with Dr. Anaya Undiagnosed new problem with uncertain prognosis? @ -No Drug Therapy requiring intensive monitoring for toxicity (Heparin, Nitro, Insulin, Cardizem)? @ -No Were any procedures done? @ -No Diagnosis/symptom? @ -Suicidal ideation Acute, or Chronic, or Acute on Chronic? @ -Acute Uncomplicated (without systemic symptoms) or Complicated (systemic symptoms)? @ -Uncomplicated Side effects of treatment? @ -No Exacerbation, Progression, or Severe Exacerbation? @ -No Poses a threat to life or bodily function? How? (Chest pain, [place], [place], pneumonia, PE, COPD, DKA, ARF, appy, cholecystitis, CVA, Diverticulitis, Homicidal, Suicidal, threat to staff... and all critical care pts) @ -No - Lab Data Lab Results 05/12/25 Range/Units 00:23 POC Glucose (mg/dL) 274 H (70-110) mg/dL POC Glu Manager Retail Sales ID Clem Magaan Disposition Clinical Impression: Suicidal ideation Disposition: HOME SELF-CARE Condition: Stable Instructions (If sedation given, give patient instructions): Depression (ED) Additional Instructions: Please return to the Emergency Department if symptoms worsen or any other concerns. Is patient prescribed a controlled substance at d/c from ED?: No Referrals: Brown Valenzuela MD [Primary Care Provider] - 1-2 days Time of Disposition: 02:53
[2024-10-04] MEDS: INSULIN LISPRO (HumaLOG) 100 UNIT/ML 10 mL VL SQ ONE (00:47)
== END 2024-10-04 03:13 | disposition home or self-care (01) ==
LOC: EC 23:51
DX: R45.851 Suicidal ideations (principal); F17.200 Nicotine dependence, unspecified, uncomplicated
CPT/HCPCS: 36415; 82075; 99284

== ENCOUNTER 2024-10-04 14:51 | Emergency (ER) | payer OTHER ==
[2024-10-04 14:55] LABS: Glucose,Whole Blood 323 mg/dL (70-110)
--- NOTE | 2024-10-04 15:21 | ED ---
General Adult HPI - General Chief complaint: Nausea/Vomiting/Diarrhea Stated complaint: Dehydration Time Seen by Provider: 10/04/24 14:53 Source: patient, EMS, RN notes reviewed Mode of arrival: EMS Limitations: no limitations - History of Present Illness Initial comments: Patient is a 29-year-old male present to the emergency department with concern for dehydration. Patient states he is feeling loss of appetite. No vomiting. Blood sugar at home was around 300. Patient states he is just here to get fluids hoping to avoid becoming more sick. No abdominal pain at this time. - Related Data Home Medications Medication Instructions Recorded Confirmed INSULIN LISPRO (humaLOG) [humaLOG] 7 units SQ AC-TID 06/20/24 10/02/24 Insulin Glargine (Lantus) [Lantus 25 unit SQ DAILY 06/20/24 10/02/24 Vial] Allergies Allergy/AdvReac Type Severity Reaction Status Date / Time No Known Allergies Allergy Verified 10/04/24 14:57 Review of Systems ROS Statement: Those systems with pertinent positive or pertinent negative responses have been documented in the HPI. ROS Other: All systems not noted in ROS Statement are negative. Constitutional: Denies: fever Eyes: Denies: eye pain ENT: Denies: ear pain Respiratory: Denies: cough Cardiovascular: Denies: chest pain Gastrointestinal: Reports: as per HPI Genitourinary: Denies: dysuria Musculoskeletal: Denies: back pain Past Medical History Past Medical History: Asthma, Diabetes Mellitus, Neurologic Disorder, Skin Disorder Additional Past Medical History / Comment(s): IDDM type I, neuropathy bilateral feet, DKA, eczema,gastritis, anxiety, depression History of Any Multi-Drug Resistant Organisms: None Reported Past Surgical History: Adenoidectomy Additional Past Surgical History / Comment(s): gastritis Past Anesthesia/Blood Transfusion Reactions: No Reported Reaction Past Psychological History: Anxiety, Depression Smoking Status: Current every day smoker Past Alcohol Use History: None Reported Past Drug Use History: Marijuana - Past Family History Mother Family Medical History: CVA/TIA Additional Family Medical History / Comment(s): TIA Father Family Medical History: Hyperlipidemia, Hypertension Additional Family Medical History / Comment(s): . General Exam Limitations: no limitations General appearance: alert, in no apparent distress Head exam: Present: normocephalic Eye exam: Present: normal appearance ENT exam: Present: normal oropharynx Respiratory exam: Present: normal lung sounds bilaterally Cardiovascular Exam: Present: regular rate, normal rhythm GI/Abdominal exam: Present: soft. Absent: distended, tenderness Extremities exam: Present: normal inspection Neurological exam: Present: alert Psychiatric exam: Present: normal affect, normal mood Skin exam: Present: normal color Course Vital Signs 10/04/24 10/04/24 14:52 16:28 Temperature 97.9 F Pulse Rate 89 91 Respiratory 18 18 Rate Blood Pressure 144/105 129/95 O2 Sat by Pulse 100 100 Oximetry Medical Decision Making - Medical Decision Making Was pt. sent in by a medical professional or institution (, PA, HOUSE RN, urgent care, hospital, or residential...) When possible be specific @ -No Did you speak to anyone other than the patient for history (EMS, parent, family, police, friend...)? What history was obtained from this source @ -No Did you review nursing and triage notes (agree or disagree)? Why? @ -I reviewed and agree with nursing and triage notes Were old charts reviewed (outside hosp., previous admission, EMS record, old EKG, old radiological studies, urgent care reports/EKG's, residential records)? Report findings @ -Multiple previous admissions reviewed Differential Diagnosis (chest pain, altered mental status, abdominal pain women, abdominal pain men, vaginal bleeding, weakness, fever, dyspnea, syncope, h eadache, dizziness, GI bleed, back pain, seizure, CVA, palpatations, mental health, musculoskeletal)? @ -Differential Dizziness: Benign paroxysmal positional Vertigo, Meniere's disease, otitis media, acoustic neuroma, vertebrobasilar insufficiency, cerebellar stroke, encephalitis, hypovolemic, arrhythmia, coronary artery syndrome, anemia, this is not meant to be an all-inclusive list EKG interpreted by me (3pts min.). @ -As above X-rays interpreted by me (1pt min.). @ -None done CT interpreted by me (1pt min.). @ -None done U/S interpreted by me (1pt. min.). @ -None done What testing was considered but not performed or refused? (CT, X-rays, U/S, labs)? Why? @ -None What meds were considered but not given or refused? Why? @ -None Did you discuss the management of the patient with other professionals (professionals i.e. , PA, HOUSE RN, lab, RT, psych nurse, social services assistant, stereotype caster, teacher, ethics officer, rifle case repairer)? Give summary @ -No Was smoking cessation discussed for >3mins.? @ -No Was critical care preformed (if so, how long)? @ -No Were there social determinants of health that impacted care today? How? (Homelessness, low income, unemployed, alcoholism, drug addiction, transportation, low edu. Level, literacy, decrease access to med. care, [facility], rehab)? @ -No Was there de-escalation of care discussed even if they declined (Discuss DNR or withdrawal of care, Hospice)? DNR status @ -No What co-morbidities impacted this encounter? (DM, HTN, Smoking, COPD, CAD, Ca ncer, CVA, ARF, Chemo, Hep., AIDS, mental health diagnosis, sleep apnea, morbid obesity)? @ -History of poorly controlled diabetes patient Was patient admitted / discharged? Hospital course, mention meds given and route, prescriptions, significant lab abnormalities, going to OR and other pertinent info. @ -Patient presents with decreased appetite and concern for dehydration. Patient provided a liter of fluids. On reevaluation patient is feeling better. Patient will be given small amount of insulin and recommend discharge and close follow-up Undiagnosed new problem with uncertain prognosis? @ -No Drug Therapy requiring intensive monitoring for toxicity (Heparin, Nitro, Insulin, Cardizem)? @ -No Were any procedures done? @ -No Diagnosis/symptom? @ -Hyperglycemia Acute, or Chronic, or Acute on Chronic? @ -Acute Uncomplicated (without systemic symptoms) or Complicated (systemic symptoms)? @ -Default Side effects of treatment? @ -No Exacerbation, Progression, or Severe Exacerbation? @ -No Poses a threat to life or bodily function? How? (Chest pain, USA, SC, pneumonia, PE, COPD, DKA, ARF, appy, cholecystitis, CVA, Diverticulitis, Homicidal, Suicidal, threat to staff... and all critical care pts) @ -No - Lab Data Result diagrams: 10/04/24 15:36 10/04/24 15:36 Lab Results 10/04/24 10/04/24 10/04/24 Range/Units 14:54 15:36 15:36 WBC 7.60 (4.50-10.00) 10*3/uL RBC 4.35 L (4.40-5.60) 10*6/uL Hgb 12.4 L D (13.0-17.0) g/dL Hct 35.7 L (39.6-50.0) % MCV 82.1 (80.0-97.0) fL MCH 28.5 (27.0-32.0) pg MCHC 34.7 (32.0-37.0) g/dL Plt Count 321 (140-440) 10*3/uL MPV 9.3 L (9.5-12.2) fL Immature Gran % (Auto) 0.3 % Neutrophils % 69.5 % Lymphocytes % 19.9 % Monocytes % 8.8 % Eosinophils % 0.8 % Basophils % 0.7 % Immature Gran # 0.02 (0.00-0.04) 10*3/uL Neutrophils # 5.29 (1.80-7.70) 10*3/uL Lymphocytes # 1.51 (0.90-5.00) 10*3/uL Monocytes # 0.67 (0.20-1.00) 10*3/uL Eosinophils # 0.06 (0.04-0.35) 10*3/uL Basophils # 0.05 (0.00-0.10) 10*3/uL Sodium 129 L (137-145) mmol/L Potassium 4.1 (3.5-5.1) mmol/L Chloride 93 L (98-107) mmol/L Carbon Dioxide 25 (22-30) mmol/L Anion Gap 11 mmol/L BUN 16 (9-20) mg/dL Creatinine 0.68 (0.66-1.25) mg/dL Est GFR (CKD-EPI)AfAm >90 (>60 ml/min/1.73 sqM) Est GFR (CKD-EPI)NonAf >90 (>60 ml/min/1.73 sqM) Glucose 315 H (74-99) mg/dL POC Glucose (mg/dL) 323 H (70-110) mg/dL POC Glu Heavy Duty Truck Mechanic ID Torey Donald Calcium 9.1 (8.4-10.2) mg/dL Total Bilirubin 0.5 (0.2-1.3) mg/dL AST 43 (17-59) U/L ALT 18 (4-49) U/L Alkaline Phosphatase 61 (38-126) U/L Total Protein 6.4 (6.3-8.2) g/dL Albumin 4.0 (3.5-5.0) g/dL Amylase 79 (30-110) U/L Lipase 24 (23-300) U/L 05// Range/Units 17:03 WBC (4.50-10.00) 10*3/uL RBC (4.40-5.60) 10*6/uL Hgb (13.0-17.0) g/dL Hct (39.6-50.0) % MCV (80.0-97.0) fL MCH (27.0-32.0) pg MCHC (32.0-37.0) g/dL Plt Count (140-440) 10*3/uL MPV (9.5-12.2) fL Immature Gran % (Auto) % Neutrophils % % Lymphocytes % % Monocytes % % Eosinophils % % Basophils % % Immature Gran # (0.00-0.04) 10*3/uL Neutrophils # (1.80-7.70) 10*3/uL Lymphocytes # (0.90-5.00) 10*3/uL Monocytes # (0.20-1.00) 10*3/uL Eosinophils # (0.04-0.35) 10*3/uL Basophils # (0.00-0.10) 10*3/uL Sodium (137-145) mmol/L Potassium (3.5-5.1) mmol/L Chloride (98-107) mmol/L Carbon Dioxide (22-30) mmol/L Anion Gap mmol/L BUN (9-20) mg/dL Creatinine (0.66-1.25) mg/dL Est GFR (CKD-EPI)AfAm (>60 ml/min/1.73 sqM) Est GFR (CKD-EPI)NonAf (>60 ml/min/1.73 sqM) Glucose (74-99) mg/dL POC Glucose (mg/dL) 246 H (70-110) mg/dL POC Glu Heavy Duty Truck Mechanic ID Deluna Alexia Calcium (8.4-10.2) mg/dL Total Bilirubin (0.2-1.3) mg/dL AST (17-59) U/L ALT (4-49) U/L Alkaline Phosphatase (38-126) U/L Total Protein (6.3-8.2) g/dL Albumin (3.5-5.0) g/dL Amylase (30-110) U/L Lipase (23-300) U/L Disposition Clinical Impression: Hyperglycemia Disposition: HOME SELF-CARE Condition: Stable Instructions (If sedation given, give patient instructions): Diabetic Hyperglycemia (ED) Additional Instructions: Please do follow-up with your primary care physician in the next day or 2 for recheck. Return for uncontrolled blood sugar, vomiting, weakness, worsening or changing symptoms or any other concerns. Is patient prescribed a controlled substance at d/c from ED?: No Referrals: Brown Valenzuela MD [Primary Care Provider] - 1-2 days Time of Disposition: 17:08
[2024-10-04 16:13] LABS: ALT 18 U/L (4-49); AST 43 U/L (17-59); African American GFR (CKD) >90 (>60 ml/min/1.73 sqM); Alkaline Phosphatase 61 U/L (38-126); Amylase 79 U/L (30-110); Anion Gap 11 mmol/L; Blood Urea Nitrogen 16 mg/dL (9-20); Calcium 9.1 mg/dL (8.4-10.2); Carbon Dioxide 25 mmol/L (22-30); Chloride 93 mmol/L (98-107); Glucose 315 mg/dL (74-99); Lipase 24 U/L (23-300); Non-African American GFR(CKD) >90 (>60 ml/min/1.73 sqM); Potassium 4.1 mmol/L (3.5-5.1); Sodium 129 mmol/L (137-145); Total Bilirubin 0.5 mg/dL (0.2-1.3); Total Protein 6.4 g/dL (6.3-8.2)
[2024-10-04 16:19] LABS: Basophils # (A) 0.05 10*3/uL (0.00-0.10); Basophils % (A) 0.7 %; Eosinophils # (A) 0.06 10*3/uL (0.04-0.35); Eosinophils % (A) 0.8 %; HCT 35.7 % (39.6-50.0); Lymphocytes # (A) 1.51 10*3/uL (0.90-5.00); Lymphocytes % (A) 19.9 %; MCH 28.5 pg (27.0-32.0); MCHC 34.7 g/dL (32.0-37.0); MCV 82.1 fL (80.0-97.0); Mean Platelet Volume 9.3 fL (9.5-12.2); Monocytes # (A) 0.67 10*3/uL (0.20-1.00); Monocytes % (A) 8.8 %; Neutrophils # (A) 5.29 10*3/uL (1.80-7.70); Neutrophils % (A) 69.5 %; Platelet Count 321 10*3/uL (140-440); RBC 4.35 10*6/uL (4.40-5.60); RDW 14.5 % (11.5-14.5)
[2024-10-04 16:22] LABS: HGB 12.4 g/dL (13.0-17.0)
[2024-10-04] MEDS: SODIUM CHLORIDE 0.9% 1,000 ML IV ONE (16:25)
[2024-10-04] MEDS: FAMOTIDINE 20 MG/2 ML VIAL IV STA (16:26)
[2024-10-04 17:05] LABS: Glucose,Whole Blood 246 mg/dL (70-110)
[2024-10-04] MEDS: INSULIN REGULAR 100 UNIT/ML VIAL (IV) SQ STA (17:26)
[2024-10-04 17:35] VITALS: BP 146/96; PULSE 78; RESP 16; TEMP 98.4
== END 2024-10-04 17:45 | disposition home or self-care (01) ==
LOC: EC 14:51
DX: E11.65 Type 2 diabetes mellitus with hyperglycemia (principal); F17.200 Nicotine dependence, unspecified, uncomplicated
CPT/HCPCS: 36415; 80053; 82150; 83690; 85025; 99284; 96374; 96361; J1308

== ENCOUNTER 2024-10-08 16:30 | Inpatient (IN) | payer OTHER ==
[2024-10-08 16:45] LABS: Glucose,Whole Blood 495 mg/dL (70-110)
[2024-10-08] MEDS: SODIUM CHLORIDE 0.9% 1,000 ML IV ONE ×2 (17:43)
[2024-10-08 17:52] LABS: Basophils # (A) 0.12 10*3/uL (0.00-0.10); Basophils % (A) 0.5 %; Eosinophils # (A) 0.01 10*3/uL (0.04-0.35); HGB 13.3 g/dL (13.0-17.0); Lymphocytes % (A) 6.8 %; MCHC 34.1 g/dL (32.0-37.0); Mean Platelet Volume 9.6 fL (9.5-12.2); Monocytes # (A) 0.46 10*3/uL (0.20-1.00); Neutrophils # (A) 21.08 10*3/uL (1.80-7.70); Neutrophils % (A) 90.1 %; Platelet Count 392 10*3/uL (140-440); RBC 4.59 10*6/uL (4.40-5.60); RDW 14.4 % (11.5-14.5)
[2024-10-08 17:53] LABS: Appearance,Urine Clear (Clear); Bilirubin,Urine Negative (Negative); Blood,Urine Negative (Negative); Color,Urine Colorless; Glucose,Urine (UA) 4+ (Negative); Leukocyte Esterase,Urine Negative (Negative); Nitrite,Urine Negative (Negative); Protein,Urine Negative (Negative); Specific Gravity,Urine 1.023 (1.001-1.035); Urobilinogen,Urine <2.0 mg/dL (<2.0)
[2024-10-08 18:04] LABS: ALT 31 U/L (4-49); AST 30 U/L (17-59); African American GFR (CKD) >90 (>60 ml/min/1.73 sqM); Alkaline Phosphatase 99 U/L (38-126); Blood Urea Nitrogen 23 mg/dL (9-20); Calcium 9.7 mg/dL (8.4-10.2); Chloride 101 mmol/L (98-107); Non-African American GFR(CKD) >90 (>60 ml/min/1.73 sqM); Potassium 5.4 mmol/L (3.5-5.1); Sodium 140 mmol/L (137-145); Total Bilirubin 0.8 mg/dL (0.2-1.3); Total Protein 7.5 g/dL (6.3-8.2)
[2024-10-08 18:05] LABS: Amphetamine Screen,Urine Not Detected (NotDetected); Barbiturate Screen,Urine Not Detected (NotDetected); Benzodiazepines Screen,Urine Not Detected (NotDetected); Cocaine Screen,Urine Not Detected (NotDetected); Methadone Screen, Urine Not Detected (NotDetected); Opiate Screen,Urine Not Detected (NotDetected); Oxycodone Screen, Urine Not Detected (NotDetected); Phencyclidine Screen,Urine Not Detected (NotDetected); Tricyclic Antidepressant,Urine Not Detected (NotDetected); Urn Cannabinoid Scrn Detected (NotDetected)
[2024-10-08 18:08] LABS: Ketones,Urine 4+ (Negative)
[2024-10-08 18:11] LABS: Glucose 535 mg/dL (74-99)
[2024-10-08 18:12] LABS: Carbon Dioxide <5 mmol/L (22-30)
--- NOTE | 2024-10-08 18:15 | XR ---
EXAMINATION TYPE: XR chest 1V portable DATE OF EXAM: 10/08/2024 6:04 PM COMPARISON: Multiple prior chest radiographs, most recently dated 04/11/2024. CLINICAL INDICATION: Male, 29 years old with history of altered mental status; [facility] TECHNIQUE: XR chest 1V portable Frontal view of the chest. FINDINGS: Lungs/Pleura: There is no evidence of pleural effusion, focal consolidation, or pneumothorax. Pulmonary vascularity: Unremarkable. Heart/mediastinum: Cardiomediastinal silhouette is unremarkable. Musculoskeletal: No acute osseous pathology. Other findings: None IMPRESSION: No acute cardiopulmonary disease/process. [facility], , 10/08/2024 6:13 PM
[2024-10-08 18:55] LABS: Glucose,Whole Blood 387 mg/dL (70-110)
[2024-10-08] MEDS: METOCLOPRAMIDE 5 MG/ML 2 ML VIAL IVP STA (19:00)
[2024-10-08] MEDS: diphenhydrAMINE 50 MG/ML 1 ML VIAL IVP STA (19:00)
[2024-10-08 19:01] LABS: INR 0.9 (<1.2); Prothrombin Time 10.5 sec (10.0-12.5)
[2024-10-08 19:03] LABS: Partial Thromboplastin Time 19.7 sec (22.0-30.0)
--- NOTE | 2024-10-08 19:58 | ED ---
General Adult HPI - General Chief complaint: Recheck/Abnormal Lab/Rx Stated complaint: Diabetic Issues Time Seen by Provider: 10/08/24 16:35 Source: EMS Mode of arrival: EMS - History of Present Illness Initial comments: 29-year-old male with past medical history of type 1 diabetes who presents to the emergency department with nausea and vomiting. Roommate called EMS because the patient had decreased responsiveness and was throwing up. Patient has a history of noncompliance with his insulin. Glucose was greater than 600. Patient reports to me that he did take some of his insulin today. Admits generalized abdominal cramps, weakness with persistent nausea vomiting. - Related Data Home Medications Medication Instructions Recorded Confirmed INSULIN LISPRO (humaLOG) [humaLOG] 7 units SQ AC-TID 06/20/24 10/08/24 Insulin Glargine (Lantus) [Lantus 25 unit SQ DAILY 06/20/24 10/08/24 Vial] Allergies Allergy/AdvReac Type Severity Reaction Status Date / Time No Known Allergies Allergy Verified 10/08/24 17:39 Review of Systems ROS Statement: Those systems with pertinent positive or pertinent negative responses have been documented in the HPI. ROS Other: All systems not noted in ROS Statement are negative. Past Medical History Past Medical History: Asthma, Diabetes Mellitus, Neurologic Disorder, Skin Disorder Additional Past Medical History / Comment(s): IDDM type I, neuropathy bilateral feet, DKA, eczema,gastritis, anxiety, depression History of Any Multi-Drug Resistant Organisms: None Reported Past Surgical History: Adenoidectomy Additional Past Surgical History / Comment(s): gastritis Past Anesthesia/Blood Transfusion Reactions: No Reported Reaction Past Psychological History: Anxiety, Depression Smoking Status: Current every day smoker Past Alcohol Use History: None Reported Past Drug Use History: Marijuana - Past Family History Mother Family Medical History: CVA/TIA Additional Family Medical History / Comment(s): TIA Father Family Medical History: Hyperlipidemia, Hypertension Additional Family Medical History / Comment(s): . General Exam Limitations: altered mental status General appearance: alert, in distress, other (vomiting) Head exam: Present: atraumatic, normocephalic, normal inspection Eye exam: Present: normal appearance, PERRL, EOMI. Absent: scleral icterus, conjunctival injection, periorbital swelling ENT exam: Present: normal exam, mucous membranes dry Respiratory exam: Present: normal lung sounds bilaterally. Absent: respiratory distress, wheezes, rales, rhonchi, stridor Cardiovascular Exam: Present: tachycardia GI/Abdominal exam: Present: soft, tenderness (generalized), normal bowel sounds. Absent: distended, guarding, rebound, rigid Extremities exam: Present: normal inspection, full ROM, normal capillary refill. Absent: tenderness, pedal edema, joint swelling, calf tenderness Neurological exam: Present: altered Skin exam: Present: diaphoretic Course Vital Signs 10/08/24 10/08/24 10/08/24 16:34 17:52 22:07 Temperature 98.1 F Pulse Rate 116 H 121 H 124 H Pulse Rate [ Agriculture Extension Specialist ] Respiratory 18 16 18 Rate Blood Pressure 103/66 119/75 125/73 Blood Pressure [Left Arm] O2 Sat by Pulse 97 99 99 Oximetry 10/09/24 10/09/24 10/09/24 00:39 02:49 05:54 Temperature 98.6 F Pulse Rate 115 H 115 H 98 Pulse Rate [ Agriculture Extension Specialist ] Respiratory 18 18 18 Rate Blood Pressure 105/66 90/60 129/85 Blood Pressure [Left Arm] O2 Sat by Pulse 98 98 99 Oximetry 10/09/24 10/09/24 07:47 09:10 Temperature 98.9 F Pulse Rate 101 H Pulse Rate [ 115 H Agriculture Extension Specialist ] Respiratory 20 16 Rate Blood Pressure 125/84 Blood Pressure 133/71 [Left Arm] O2 Sat by Pulse 98 96 Oximetry Medical Decision Making - Medical Decision Making Was pt. sent in by a medical professional or institution (, PA, MACHINE TOOL ELECTRICIAN, urgent care, hospital, or prison...) When possible be specific @ -No Did you speak to anyone other than the patient for history (EMS, parent, family, police, friend...)? What history was obtained from this source @ -EMS Did you review nursing and triage notes (agree or disagree)? Why? @ -I reviewed and agree with nursing and triage notes Were old charts reviewed (outside hosp., previous admission, EMS record, old EKG, old radiological studies, urgent care reports/EKG's, prison records)? Report findings @ -No old charts were reviewed Differential Diagnosis (chest pain, altered mental status, abdominal pain women, abdominal pain men, vaginal bleeding, weakness, fever, dyspnea, syncope, headache, dizziness, GI bleed, back pain, seizure, CVA, palpatations, mental health, musculoskeletal)? @ -Differential Altered Mental Status: Hypoglycemia, DKA, hypercapnia, ETOH, overdose, CO poisoning, trauma, myxedema coma, HTN encephalopathy, infection, encephalitis, psychosis, intercranial hemorrhage, hepatic encephalopathy, meningitis, CVA, this is not meant to be an all-inclusive list EKG interpreted by me (3pts min.). @ -Yes and demonstrates sinus tachycardia with a rate of 124. SD interval 196. QRS 98. QTc of 394. No acute ST segment elevations or depressions X-rays interpreted by me (1pt min.). @ -None done CT interpreted by me (1pt min.). @ -None done U/S interpreted by me (1pt. min.). @ -None done What testing was considered but not performed or refused? (CT, X-rays, U/S, labs)? Why? @ -None What meds were considered but not given or refused? Why? @ -None Did you discuss the management of the patient with other professionals (professionals i.e. , PA, MACHINE TOOL ELECTRICIAN, lab, RT, psych nurse, social services coordinator, residential service technician, teacher, sports development officer, pillowcase turner)? Give summary @ -spoke with dr. castaneda for admission Was smoking cessation discussed for >3mins.? @ -No Was critical care preformed (if so, how long)? @ -yes, 35 minutes for management of DKA Were there social determinants of health that impacted care today? How? (Homelessness, low income, unemployed, alcoholism, drug addiction, transportation, low edu. Level, literacy, decrease access to med. care, skilled nursing, rehab)? @ -No Was there de-escalation of care discussed even if they declined (Discuss DNR or withdrawal of care, Hospice)? DNR status @ -No What co-morbidities impacted this encounter? (DM, HTN, Smoking, COPD, CAD, Canc er, CVA, ARF, Chemo, Hep., AIDS, mental health diagnosis, sleep apnea, morbid obesity)? @ -type 1 DM Was patient admitted / discharged? Hospital course, mention meds given and route, prescriptions, significant lab abnormalities, going to OR and other pertinent info. @ -Admitted. Patient meets critieria for DKA. Patient given 2L NacL followed by insulin gtt Undiagnosed new problem with uncertain prognosis? @ -No Drug Therapy requiring intensive monitoring for toxicity (Heparin, Nitro, Insulin, Cardizem)? @ -insulin Were any procedures done? @ -No Diagnosis/symptom? @ - acute n/v, acute dka Acute, or Chronic, or Acute on Chronic? @ -Acute on chronic Uncomplicated (without systemic symptoms) or Complicated (systemic symptoms)? @ -Complicated Side effects of treatment? @ -No Exacerbation, Progression, or Severe Exacerbation? @ -Yes Poses a threat to life or bodily function? How? (Chest pain, [place], [place], pneumonia, PE, COPD, DKA, ARF, appy, cholecystitis, CVA, Diverticulitis, Homicidal, Suicidal, threat to staff... and all critical care pts) @ -Yes as patient is in DKA - Lab Data Result diagrams: 10/08/24 17:46 10/10/24 03:50 Lab Results 10/08/24 10/08/24 10/08/24 Range/Units 16:43 17:46 17:46 WBC 23.40 H (4.50-10.00) 10*3/uL RBC 4.59 (4.40-5.60) 10*6/uL Hgb 13.3 (13.0-17.0) g/dL Hct 39.0 L (39.6-50.0) % MCV 85.0 (80.0-97.0) fL MCH 29.0 (27.0-32.0) pg MCHC 34.1 (32.0-37.0) g/dL Plt Count 392 (140-440) 10*3/uL MPV 9.6 (9.5-12.2) fL Immature Gran % (Auto) 0.6 % Neutrophils % 90.1 % Lymphocytes % 6.8 % Monocytes % 2.0 % Eosinophils % 0.0 % Basophils % 0.5 % Immature Gran # 0.13 H (0.00-0.04) 10*3/uL Neutrophils # 21.08 H (1.80-7.70) 10*3/uL Lymphocytes # 1.60 (0.90-5.00) 10*3/uL Monocytes # 0.46 (0.20-1.00) 10*3/uL Eosinophils # 0.01 L (0.04-0.35) 10*3/uL Basophils # 0.12 H (0.00-0.10) 10*3/uL PT (10.0-12.5) sec INR (<1.2) APTT (22.0-30.0) sec Sodium (137-145) mmol/L Potassium (3.5-5.1) mmol/L Chloride (98-107) mmol/L Carbon Dioxide (22-30) mmol/L Anion Gap mmol/L BUN (9-20) mg/dL Creatinine (0.66-1.25) mg/dL Est GFR (CKD-EPI)AfAm (>60 ml/min/1.73 sqM) Est GFR (CKD-EPI)NonAf (>60 ml/min/1.73 sqM) Glucose (74-99) mg/dL POC Glucose (mg/dL) 495 H (70-110) mg/dL POC Glu Surgical Services Coordinator ID Jaqueline Emery Calcium (8.4-10.2) mg/dL Total Bilirubin (0.2-1.3) mg/dL AST (17-59) U/L ALT (4-49) U/L Alkaline Phosphatase (38-126) U/L Troponin I (0.000-0.034) ng/mL Total Protein (6.3-8.2) g/dL Albumin (3.5-5.0) g/dL Urine Color Colorless Urine Appearance Clear (Clear) Urine pH 5.0 (5.0-8.0) Ur Specific [place] 1.023 (1.001-1.035) Urine Protein Negative (Negative) Urine Glucose (UA) 4+ H (Negative) Urine Ketones 4+ H (Negative) Urine Blood Negative (Negative) Urine Nitrite Negative (Negative) Urine Bilirubin Negative (Negative) Urine Urobilinogen <2.0 (<2.0) mg/dL Ur Leukocyte Esterase Negative (Negative) Urine Opiates Screen Not Detected (NotDetected) Ur Oxycodone Screen Not Detected (NotDetected) Urine Methadone Screen Not Detected (NotDetected) Ur Barbiturates Screen Not Detected (NotDetected) U Tricyclic Antidepress Not Detected (NotDetected) Ur Phencyclidine Scrn Not Detected (NotDetected) Ur Amphetamines Screen Not Detected (NotDetected) U Methamphetamines Scrn Not Detected (NotDetected) U Benzodiazepines Scrn Not Detected (NotDetected) Urine Cocaine Screen Not Detected (NotDetected) U Marijuana (THC) Screen Detected H (NotDetected) Acetone, Qual (Negative) 10/08/24 10/08/24 10/08/24 Range/Units 17:46 17:46 18:13 WBC (4.50-10.00) 10*3/uL RBC (4.40-5.60) 10*6/uL Hgb (13.0-17.0) g/dL Hct (39.6-50.0) % MCV (80.0-97.0) fL MCH (27.0-32.0) pg MCHC (32.0-37.0) g/dL Plt Count (140-440) 10*3/uL MPV (9.5-12.2) fL Immature Gran % (Auto) % Neutrophils % % Lymphocytes % % Monocytes % % Eosinophils % % Basophils % % Immature Gran # (0.00-0.04) 10*3/uL Neutrophils # (1.80-7.70) 10*3/uL Lymphocytes # (0.90-5.00) 10*3/uL Monocytes # (0.20-1.00) 10*3/uL Eosinophils # (0.04-0.35) 10*3/uL Basophils # (0.00-0.10) 10*3/uL PT 10.5 (10.0-12.5) sec INR 0.9 (<1.2) APTT 19.7 L (22.0-30.0) sec Sodium 140 (137-145) mmol/L Potassium 5.4 H (3.5-5.1) mmol/L Chloride 101 (98-107) mmol/L Carbon Dioxide <5 L* (22-30) mmol/L Anion Gap mmol/L BUN 23 H (9-20) mg/dL Creatinine 0.94 (0.66-1.25) mg/dL Est GFR (CKD-EPI)AfAm >90 (>60 ml/min/1.73 sqM) Est GFR (CKD-EPI)NonAf >90 (>60 ml/min/1.73 sqM) Glucose 535 H* (74-99) mg/dL POC Glucose (mg/dL) (70-110) mg/dL POC Glu Surgical Services Coordinator ID Calcium 9.7 (8.4-10.2) mg/dL Total Bilirubin 0.8 (0.2-1.3) mg/dL AST 30 (17-59) U/L ALT 31 (4-49) U/L Alkaline Phosphatase 99 (38-126) U/L Troponin I <0.012 (0.000-0.034) ng/mL Total Protein 7.5 (6.3-8.2) g/dL Albumin 5.0 (3.5-5.0) g/dL Urine Color Urine Appearance (Clear) Urine pH (5.0-8.0) Ur Specific [place] (1.001-1.035) Urine Protein (Negative) Urine Glucose (UA) (Negative) Urine Ketones (Negative) Urine Blood (Negative) Urine Nitrite (Negative) Urine Bilirubin (Negative) Urine Urobilinogen (<2.0) mg/dL Ur Leukocyte Esterase (Negative) Urine Opiates Screen (NotDetected) Ur Oxycodone Screen (NotDetected) Urine Methadone Screen (NotDetected) Ur Barbiturates Screen (NotDetected) U Tricyclic Antidepress (NotDetected) Ur Phencyclidine Scrn (NotDetected) Ur Amphetamines Screen (NotDetected) U Methamphetamines Scrn (NotDetected) U Benzodiazepines Scrn (NotDetected) Urine Cocaine Screen (NotDetected) U Marijuana (THC) Screen (NotDetected) Acetone, Qual Positive (Negative) 10/08/24 Range/Units 18:54 WBC (4.50-10.00) 10*3/uL RBC (4.40-5.60) 10*6/uL Hgb (13.0-17.0) g/dL Hct (39.6-50.0) % MCV (80.0-97.0) fL MCH (27.0-32.0) pg MCHC (32.0-37.0) g/dL Plt Count (140-440) 10*3/uL MPV (9.5-12.2) fL Immature Gran % (Auto) % Neutrophils % % Lymphocytes % % Monocytes % % Eosinophils % % Basophils % % Immature Gran # (0.00-0.04) 10*3/uL Neutrophils # (1.80-7.70) 10*3/uL Lymphocytes # (0.90-5.00) 10*3/uL Monocytes # (0.20-1.00) 10*3/uL Eosinophils # (0.04-0.35) 10*3/uL Basophils # (0.00-0.10) 10*3/uL PT (10.0-12.5) sec INR (<1.2) APTT (22.0-30.0) sec Sodium (137-145) mmol/L Potassium (3.5-5.1) mmol/L Chloride (98-107) mmol/L Carbon Dioxide (22-30) mmol/L Anion Gap mmol/L BUN (9-20) mg/dL Creatinine (0.66-1.25) mg/dL Est GFR (CKD-EPI)AfAm (>60 ml/min/1.73 sqM) Est GFR (CKD-EPI)NonAf (>60 ml/min/1.73 sqM) Glucose (74-99) mg/dL POC Glucose (mg/dL) 387 H (70-110) mg/dL POC Glu Surgical Services Coordinator ID Jaqueline Emery Calcium (8.4-10.2) mg/dL Total Bilirubin (0.2-1.3) mg/dL AST (17-59) U/L ALT (4-49) U/L Alkaline Phosphatase (38-126) U/L Troponin I (0.000-0.034) ng/mL Total Protein (6.3-8.2) g/dL Albumin (3.5-5.0) g/dL Urine Color Urine Appearance (Clear) Urine pH (5.0-8.0) Ur Specific [place] (1.001-1.035) Urine Protein (Negative) Urine Glucose (UA) (Negative) Urine Ketones (Negative) Urine Blood (Negative) Urine Nitrite (Negative) Urine Bilirubin (Negative) Urine Urobilinogen (<2.0) mg/dL Ur Leukocyte Esterase (Negative) Urine Opiates Screen (NotDetected) Ur Oxycodone Screen (NotDetected) Urine Methadone Screen (NotDetected) Ur Barbiturates Screen (NotDetected) U Tricyclic Antidepress (NotDetected) Ur Phencyclidine Scrn (NotDetected) Ur Amphetamines Screen (NotDetected) U Methamphetamines Scrn (NotDetected) U Benzodiazepines Scrn (NotDetected) Urine Cocaine Screen (NotDetected) U Marijuana (THC) Screen (NotDetected) Acetone, Qual (Negative) Disposition Clinical Impression: Diabetic ketoacidosis associated with type 1 diabetes mellitus, Nausea & vomiting Disposition: ADMITTED IP TO THIS [facility] Condition: Serious Is patient prescribed a controlled substance at d/c from ED?: No Time of Disposition: 19:58 Decision to Admit Reason: Admit from EC Decision Date: 10/08/24 Decision Time: 19:58
[2024-10-08 20:59] LABS: Glucose,Whole Blood 434 mg/dL (70-110)
[2024-10-08] MEDS: ONDANSETRON 4 MG/2 ML VIAL IVP SCH (21:00)
[2024-10-08] MEDS: INSULIN REGULAR 100 UNIT in SODIUM CHLORIDE 0.9% 100 ML IV SCH (21:01)
[2024-10-08 21:06] LABS: African American GFR (CKD) >90 (>60 ml/min/1.73 sqM); Blood Urea Nitrogen 24 mg/dL (9-20); Chloride 109 mmol/L (98-107); Glucose 480 mg/dL (74-99); Non-African American GFR(CKD) >90 (>60 ml/min/1.73 sqM); Potassium 5.8 mmol/L (3.5-5.1); Sodium 143 mmol/L (137-145)
[2024-10-08 21:07] LABS: Carbon Dioxide <5 mmol/L (22-30)
[2024-10-08 22:04] LABS: Glucose,Whole Blood 418 mg/dL (70-110)
[2024-10-08 23:11] LABS: Glucose,Whole Blood 354 mg/dL (70-110)
[2024-10-08 23:50] LABS: Glucose,Whole Blood 314 mg/dL (70-110)
[2024-10-09 00:50] LABS: African American GFR (CKD) >90 (>60 ml/min/1.73 sqM); Blood Urea Nitrogen 26 mg/dL (9-20); Chloride 112 mmol/L (98-107); Glucose 341 mg/dL (74-99); Non-African American GFR(CKD) >90 (>60 ml/min/1.73 sqM); Potassium 5.2 mmol/L (3.5-5.1); Sodium 146 mmol/L (137-145)
[2024-10-09 00:57] LABS: Carbon Dioxide <5 mmol/L (22-30)
[2024-10-09 01:05] LABS: Glucose,Whole Blood 254 mg/dL (70-110)
[2024-10-09] MEDS: D5-0.45% NACL WITH KCL 20MEQ/L 1,000 ML IV SCH (01:30)
[2024-10-09 03:24] LABS: Glucose,Whole Blood 182 mg/dL (70-110)
[2024-10-09 04:45] LABS: Glucose,Whole Blood 152 mg/dL (70-110)
[2024-10-09 05:55] LABS: Glucose,Whole Blood 108 mg/dL (70-110)
[2024-10-09 06:57] LABS: Glucose,Whole Blood 96 mg/dL (70-110)
[2024-10-09 07:38] LABS: Glucose,Whole Blood 105 mg/dL (70-110)
[2024-10-09 08:31] LABS: Glucose,Whole Blood 127 mg/dL (70-110)
[2024-10-09 09:31] LABS: Glucose,Whole Blood 158 mg/dL (70-110)
[2024-10-09 10:52] LABS: Glucose,Whole Blood 212 mg/dL (70-110)
[2024-10-09 11:53] LABS: African American GFR (CKD) >90 (>60 ml/min/1.73 sqM); Anion Gap 21 mmol/L; Blood Urea Nitrogen 22 mg/dL (9-20); Calcium 8.8 mg/dL (8.4-10.2); Carbon Dioxide 10 mmol/L (22-30); Chloride 104 mmol/L (98-107); Glucose 231 mg/dL (74-99); Non-African American GFR(CKD) >90 (>60 ml/min/1.73 sqM); Potassium 4.9 mmol/L (3.5-5.1); Sodium 135 mmol/L (137-145)
[2024-10-09 12:03] LABS: Glucose,Whole Blood 228 mg/dL (70-110)
[2024-10-09 13:04] LABS: Glucose,Whole Blood 318 mg/dL (70-110)
[2024-10-09 14:05] LABS: Glucose,Whole Blood 295 mg/dL (70-110)
[2024-10-09 15:01] LABS: Glucose,Whole Blood 284 mg/dL (70-110)
[2024-10-09 15:34] VITALS: BMI 19.2
[2024-10-09 15:56] LABS: Glucose,Whole Blood 258 mg/dL (70-110)
[2024-10-09] MEDS: INSULIN GLARGINE (LANTUS) 100 UNIT/ML SYR SQ SCH (16:15)
[2024-10-09 16:55] LABS: Glucose,Whole Blood 262 mg/dL (70-110)
[2024-10-09] MEDS: INSULIN LISPRO (HumaLOG) 100 UNIT/ML 10 mL VL SQ SCH (17:55)
[2024-10-09 20:07] LABS: Glucose,Whole Blood 270 mg/dL (70-110)
--- NOTE | 2024-10-10 01:34 | HP ---
HISTORY AND PHYSICAL CHIEF COMPLAINT: Nausea and vomiting. HISTORY OF PRESENT ILLNESS: This 29-year-old white male, who is back in. He is in and out every 2-3 days of late. He came in in DKA once again along with his vomiting. REVIEW OF SYSTEMS: Not obtainable. Past medical history, family history, and personal/social history is unchanged. PHYSICAL EXAMINATION: GENERAL/VITAL SIGNS: He had tachycardia with a rate of 125. He is dehydrated. He is lethargic. CHEST: Clear. CARDIAC: Exam is normal. ABDOMEN: Soft. IMPRESSION: Diabetic ketoacidosis. PLAN: 1. Bed rest. 2. Diabetic ketoacidosis protocol. MMODL / IJN: [id number] /
--- NOTE | 2024-10-10 03:18 | PN ---
PROGRESS NOTE DATE OF SERVICE: 10/09/2024 CHIEF COMPLAINT: Diabetic ketoacidosis. HISTORY OF PRESENT ILLNESS: This gentleman is still lethargic and nauseated. PHYSICAL EXAMINATION: VITAL SIGNS: Normal. CHEST: Clear. IMPRESSION: 1. Diabetic ketoacidosis. 2. Intractable nausea and vomiting. 3. Dehydration. 4. Depression. PLAN: He is going to be transitioned back to his basal bolus program and the IV fluids will continue. MMODL / IJN: [id number] /
[2024-10-10 04:17] LABS: African American GFR (CKD) >90 (>60 ml/min/1.73 sqM); Anion Gap 22 mmol/L; Blood Urea Nitrogen 14 mg/dL (9-20); Calcium 8.7 mg/dL (8.4-10.2); Chloride 100 mmol/L (98-107); Glucose 327 mg/dL (74-99); Non-African American GFR(CKD) >90 (>60 ml/min/1.73 sqM); Potassium 4.7 mmol/L (3.5-5.1); Sodium 130 mmol/L (137-145)
[2024-10-10 04:22] LABS: Carbon Dioxide 8 mmol/L (22-30)
[2024-10-10] MEDS: LACTATED RINGERS 1,000 ML IV SCH (04:40)
[2024-10-10] MEDS: INSULIN LISPRO (HumaLOG) 100 UNIT/ML 10 mL VL SQ ONE (04:41)
[2024-10-10] MEDS: INSULIN LISPRO (HumaLOG) 100 UNIT/ML 10 mL VL SQ SCH (07:46)
[2024-10-10 08:06] LABS: Glucose,Whole Blood 206 mg/dL (70-110)
[2024-10-10 11:55] LABS: Glucose,Whole Blood 198 mg/dL (70-110)
[2024-10-10] MEDS: SODIUM BICARBONATE TAB 650 MG TAB PO SCH (12:21)
[2024-10-10 16:57] LABS: Glucose,Whole Blood 282 mg/dL (70-110)
[2024-10-10 19:56] LABS: Glucose,Whole Blood 328 mg/dL (70-110)
[2024-10-11 06:57] LABS: Glucose,Whole Blood 282 mg/dL (70-110)
[2024-10-11 09:47] LABS: Glucose,Whole Blood 202 mg/dL (70-110)
[2024-10-11 11:31] LABS: Glucose,Whole Blood 212 mg/dL (70-110)
[2024-10-11 17:06] LABS: Glucose,Whole Blood 332 mg/dL (70-110)
[2024-10-11 20:18] LABS: Glucose,Whole Blood 225 mg/dL (70-110)
[2024-10-12 06:30] LABS: Glucose,Whole Blood 234 mg/dL (70-110)
--- NOTE | 2024-10-12 08:27 | PN ---
PROGRESS NOTE DATE OF SERVICE: 10/10/2024 CHIEF COMPLAINT: DKA. HISTORY OF PRESENT ILLNESS: This gentleman is still lethargic and having episodes of nausea and vomiting. Bicarb is low at 8. PHYSICAL EXAMINATION: CHEST: Clear. CARDIAC: Reveals a sinus tachycardia. ABDOMEN: Soft. IMPRESSION: 1. Diabetic ketoacidosis. 2. Dehydration. 3. Intractable nausea and vomiting. 4. Metabolic acidosis. PLAN: 1. Start sodium bicarb orally 3 times a day. 2. Continue with insulin management. 3. Antiemetics. MMODL / IJN: [id number] /
--- NOTE | 2024-10-12 09:09 | PN ---
PROGRESS NOTE DATE OF SERVICE: 10/11/2024 CHIEF COMPLAINT: DKA with type 1 diabetes. HISTORY OF PRESENT ILLNESS: This gentleman is still lethargic and nauseated. PHYSICAL EXAMINATION: CHEST: Clear. CARDIAC: Normal. IMPRESSION: 1. Diabetic ketoacidosis. 2. Intractable nausea and vomiting. PLAN: Continue with IV fluids and management of his diabetes. His diet will be advanced. MMODL / IJN: [id number] /
[2024-10-12 11:06] VITALS: BP 123/82; PULSE 82; RESP 18; TEMP 97.9
[2024-10-12 12:09] LABS: Glucose,Whole Blood 375 mg/dL (70-110)
--- NOTE | 2024-10-14 04:21 | DS ---
DISCHARGE SUMMARY CHIEF COMPLAINT: DKA. HISTORY OF PRESENT ILLNESS AND PHYSICAL EXAMINATION: Details of this man's history and physical can be found in the initial workup. LABORATORY STUDIES: While he was in the hospital, he had laboratory studies, details of which can be found in the laboratory section of his chart. COURSE IN THE HOSPITAL: After admission, he was placed on bedrest, started intravenous fluids, and placed on DKA protocol. He had nausea and vomiting for several days and then slowly began to improve. His diet was advanced. He was doing well enough that it was felt that he could be discharged on the . He will go home on his usual basal and bolus insulin, if he will take it. FINAL DIAGNOSES: 1. Diabetic ketoacidosis. 2. Dehydration. 3. Nausea and vomiting. 4. Depression. 5. Gastroparesis. OPERATIONS: None. CONSULTATIONS: None. He is improved. GRACE / ALDEN: [id number] /
== END 2024-10-12 12:43 | disposition home or self-care (01) | DRG 420 ==
LOC: EC 16:30 → 3SCARD 19:48
PROVIDERS: ADMIT Family Medicine; ATTEND Family Medicine
DX: E10.10 Type 1 diabetes mellitus with ketoacidosis without coma (principal); E86.0 Dehydration; F32.A Depression, unspecified; J45.909 Unspecified asthma, uncomplicated; R11.2 Nausea with vomiting, unspecified; F17.210 Nicotine dependence, cigarettes, uncomplicated; Z79.4 Long term (current) use of insulin; Z82.49 Family history of ischemic heart disease and other diseases of the circulatory system; Z91.148 Patient's other noncompliance with medication regimen for other reason
CPT/HCPCS: 36415; 71045; 80048; 80051; 80053; 80306; 81003; 82009; 82565; 82947; 84100; 84484; 84520; 85025; 85610; 85730; 93005; 96361; 96365; 96366; 96375; 96376; 99291

== ENCOUNTER 2024-10-15 02:17 | Emergency (ER) | payer OTHER ==
[2024-10-15 02:24] VITALS: BP 131/99; PULSE 106; RESP 18; TEMP 97.3
--- NOTE | 2024-10-15 03:05 | ED ---
Neck Injury/Pain HPI - General Chief Complaint: Neck Pain/Injury Stated Complaint: Neck pain Time Seen by Provider: 10/15/24 02:38 Source: patient, RN notes reviewed Mode of arrival: ambulatory Limitations: no limitations - History of Present Illness Initial Comments: This is a 29-year-old male who presents to the emergency department for neck pain. Patient states that he cracked his neck a couple of hours ago and then developed pain in the left arm and both legs. He also continues to have pain in his neck. Denies any headaches. Pain is more towards the left side of the neck. He is still able to fully move his head. Reports some clear foul- smelling nasal drainage that has since resolved. However, states that he still has a foul odor in his nose. MD Complaint: neck pain - Related Data Home Medications Medication Instructions Recorded Confirmed INSULIN LISPRO (humaLOG) [humaLOG] 7 units SQ AC-TID 06/20/24 10/08/24 Insulin Glargine (Lantus) [Lantus 25 unit SQ DAILY 06/20/24 10/08/24 Vial] Previous Rx's Medication Instructions Recorded Cyclobenzaprine [Flexeril] 10 mg PO TID PRN #15 tab 10/15/24 Ketorolac [Toradol] 10 mg PO Q6HR PRN #15 tab 10/15/24 Allergies Allergy/AdvReac Type Severity Reaction Status Date / Time No Known Allergies Allergy Verified 10/15/24 02:23 Review of Systems ROS Statement: Those systems with pertinent positive or pertinent negative responses have been documented in the HPI. ROS Other: All systems not noted in ROS Statement are negative. Past Medical History Past Medical History: Asthma, Diabetes Mellitus, Neurologic Disorder, Skin Disorder Additional Past Medical History / Comment(s): IDDM type I, neuropathy bilateral feet, DKA, eczema,gastritis, anxiety, depression History of Any Multi-Drug Resistant Organisms: None Reported Past Surgical History: Adenoidectomy Additional Past Surgical History / Comment(s): gastritis Past Anesthesia/Blood Transfusion Reactions: No Reported Reaction Past Psychological History: Anxiety, Depression Smoking Status: Current every day smoker Past Alcohol Use History: None Reported Past Drug Use History: Marijuana - Past Family History Mother Family Medical History: CVA/TIA Additional Family Medical History / Comment(s): TIA Father Family Medical History: Hyperlipidemia, Hypertension Additional Family Medical History / Comment(s): . General Exam Limitations: no limitations General appearance: alert, in no apparent distress Head exam: Present: atraumatic, normocephalic, normal inspection ENT exam: Present: normal exam, normal oropharynx, mucous membranes moist, TM's normal bilaterally, normal external ear exam Neck exam: Present: other (Tenderness over the left lateral aspect of the cervical spine. Full range of motion.) Respiratory exam: Present: normal lung sounds bilaterally. Absent: respiratory distress, wheezes, rales, rhonchi, stridor Cardiovascular Exam: Present: regular rate, normal rhythm Neurological exam: Present: alert, oriented X3, CN II-XII intact Psychiatric exam: Present: normal affect, normal mood Skin exam: Present: warm, dry, intact, normal color. Absent: rash Course Vital Signs 10/15/24 02:19 Temperature 97.3 F L Pulse Rate 106 H Respiratory 18 Rate Blood Pressure 131/99 O2 Sat by Pulse 99 Oximetry Medical Decision Making - Medical Decision Making This is a 29-year-old male who presents to the emergency department for neck pain. Was pt. sent in by a medical professional or institution? @ -No Did you speak to anyone other than the patient for history? @ -No Did you review nursing and triage notes? @ -Yes, and I agree, it is accurate with regards to the patient's symptoms. Were old charts reviewed? @ -No Differential Diagnosis? @ -Differential Neck Pain: Fracture, dislocation, contusion, strain, DDD, disc herniation, this is not meant to be an all-inclusive list. EKG interpreted by me (3pts min.)? @ -Not obtained X-rays interpreted by me (1pt min.)? @ -X-ray of the cervical spine obtained. My interpretation identifies no acute fractures. CT interpreted by me (1pt min.)? @ -Not obtained U/S interpreted by me (1pt. min.)? @ -Not obtained What testing was considered but not performed? (CT, X-rays, U/S, labs)? Why? @ -None What meds were considered but not given? Why? @ -None Did you discuss the management of the patient with other professionals? @ -No Did you reconcile home meds? @ -No Was smoking cessation discussed for >3mins.? @ -No Was critical care preformed (if so, how long)? @ -No Were there social determinants of health that impacted care today? How? (Homelessness, low income, unemployed, alcoholism, drug addiction, transportation, low edu. Level, literacy, decrease access to med. care, fci, rehab)? @ -No Was there de-escalation of care discussed even if they declined? (Discuss DNR or withdrawal of care, Hospice)? @ -No What co-morbidities impacted this encounter? (DM, HTN, Smoking, COPD, CAD, Cancer, CVA, Hep., AIDS, mental health diagnosis, sleep apnea, morbid obesity)? @ -None Was patient admitted / discharged? @ -Discharged. X-ray of the cervical spine obtained revealing no acute process. He was treated with Toradol, Norflex, Tylenol, and IcyHot, with improvement in symptoms. Symptoms likely related to a cervical strain. Toradol and Flexeril prescribed for further management. Advised follow-up with his PCP for reevaluation. Patient discharged home in stable condition. Case discussed with ED attending Dr. Shin. Return precautions reviewed in depth, the patient is instructed to return to the emergency department with any new, worsening, or concerning symptoms. Patient verbalized understanding. Undiagnosed new problem with uncertain prognosis? @ -None Drug Therapy requiring intensive monitoring for toxicity (Heparin, Nitro, Insulin, Cardizem)? @ -None Were any procedures done? @ -None Diagnosis/symptom? @ -Cervical strain Acute, or Chronic, or Acute on Chronic? @ -Acute Uncomplicated (without systemic symptoms) or Complicated (systemic symptoms)? @ -Uncomplicated Side effects of treatment? @ -None Exacerbation, Progression, or Severe Exacerbation] @ -Not applicable Poses a threat to life or bodily function? @ -No - Radiology Data Radiology results: report reviewed, image reviewed Disposition Clinical Impression: Cervical strain Disposition: HOME SELF-CARE Instructions (If sedation given, give patient instructions): Cervical Strain (ED) Additional Instructions: Return to the emergency department with any new, worsening, or concerning symptoms. Take the Toradol with Tylenol as needed for pain relief. If you choose to take the Toradol, do not take any other anti-inflammatories such as ibuprofen, take one or the other. You can take the Flexeril up to 3 times daily. Be aware that this may make you drowsy. You can also continue applying the IcyHot or using warm compresses. Follow up with your primary care provider in 1-2 days. Prescriptions: Cyclobenzaprine [Flexeril] 10 mg PO TID PRN #15 tab PRN Reason: Pain Ketorolac [Toradol] 10 mg PO Q6HR PRN #15 tab PRN Reason: Pain Is patient prescribed a controlled substance at d/c from ED?: No Referrals: Brown Valenzuela MD [Primary Care Provider] - 1-2 days Time of Disposition: 04:41
[2024-10-15] MEDS: KETOROLAC 15 MG/ML 1 ML VIAL IVP STA (03:10)
[2024-10-15] MEDS: ORPHENADRINE 30 MG/ML 2 ML VIAL IVP STA (03:10)
[2024-10-15] MEDS: KETOROLAC 15 MG/ML 1 ML VIAL IM STA (03:16)
[2024-10-15] MEDS: ORPHENADRINE 30 MG/ML 2 ML VIAL IM STA (03:16)
[2024-10-15] MEDS: ACETAMINOPHEN TAB 500 MG TAB PO STA (03:16)
[2024-10-15] MEDS: METHYL SALICYLATE-MENTHOL OINT (3 OZ TUBE) TOPICAL STA (03:22)
--- NOTE | 2024-10-15 05:08 | XR ---
EXAM: XR Cervical Spine, 2 or 3 Views CLINICAL HISTORY: ITS.REASON XR Reason: Neck pain TECHNIQUE: Frontal and lateral views of the cervical spine. COMPARISON: No relevant prior studies available. FINDINGS: Vertebrae: No acute fracture. Normal sagittal alignment. Disc spaces: No significant narrowing. Soft tissues: Unremarkable. IMPRESSION: No acute osseous findings.
== END 2024-10-15 04:47 | disposition home or self-care (01) ==
LOC: EC 02:17
DX: S16.1XXA Strain of muscle, fascia and tendon at neck level, initial encounter (principal); F17.200 Nicotine dependence, unspecified, uncomplicated; X58.XXXA Exposure to other specified factors, initial encounter
CPT/HCPCS: 72050; 99283; 96372 ×2; J2360; J1885

== ENCOUNTER 2024-10-16 21:18 | Emergency (ER) | payer OTHER ==
[2024-10-16 21:21] VITALS: BP 123/88; PULSE 105; TEMP 98
[2024-10-16 21:49] LABS: Glucose,Whole Blood 165 mg/dL (70-110)
--- NOTE | 2024-10-16 22:06 | ED ---
General Adult HPI - General Chief complaint: Recheck/Abnormal Lab/Rx Stated complaint: substance abuse Time Seen by Provider: 10/16/24 21:25 Source: patient Mode of arrival: ambulatory Limitations: no limitations - History of Present Illness Initial comments: This patient is a 29-year-old man who presents with complaint that he would like some help getting into rehab. The patient states that he had previously had a Xanax abuse problem but had been off of that for a number of months. He states that about 5 weeks ago he started taking Xanax again and now finds that he is abusing the medication. The patient denies feeling suicidal. Onset/Timin -: week(s) Severity scale (1-10): 0 Consistency: constant Improves with: none Worsens with: none Associated Symptoms: denies other symptoms Treatments Prior to Arrival: none - Related Data Home Medications Medication Instructions Recorded Confirmed INSULIN LISPRO (humaLOG) [humaLOG] 7 units SQ AC-TID 06/20/24 10/08/24 Insulin Glargine (Lantus) [Lantus 25 unit SQ DAILY 06/20/24 10/08/24 Vial] Previous Rx's Medication Instructions Recorded Cyclobenzaprine [Flexeril] 10 mg PO TID PRN #15 tab 10/15/24 Ketorolac [Toradol] 10 mg PO Q6HR PRN #15 tab 10/15/24 Allergies Allergy/AdvReac Type Severity Reaction Status Date / Time No Known Allergies Allergy Verified 10/16/24 21:21 Review of Systems ROS Statement: Those systems with pertinent positive or pertinent negative responses have been documented in the HPI. ROS Other: All systems not noted in ROS Statement are negative. Constitutional: Denies: fever Eyes: Denies: vision change Respiratory: Denies: cough, dyspnea Cardiovascular: Denies: chest pain, palpitations Gastrointestinal: Denies: abdominal pain, nausea, vomiting Genitourinary: Denies: dysuria Skin: Denies: rash Neurological: Denies: headache, weakness Psychiatric: Denies: depression, auditory hallucinations, visual hallucinations, homicidal thoughts, suicidal thoughts Past Medical History Past Medical History: Asthma, Diabetes Mellitus, Neurologic Disorder, Skin Disorder Additional Past Medical History / Comment(s): IDDM type I, neuropathy bilateral feet, DKA, eczema,gastritis, anxiety, depression History of Any Multi-Drug Resistant Organisms: None Reported Past Surgical History: Adenoidectomy Additional Past Surgical History / Comment(s): gastritis Past Anesthesia/Blood Transfusion Reactions: No Reported Reaction Past Psychological History: Anxiety, Depression Smoking Status: Current every day smoker Past Alcohol Use History: None Reported Past Drug Use History: Marijuana, Prescription Drug Abuse - Past Family History Mother Family Medical History: CVA/TIA Additional Family Medical History / Comment(s): TIA Father Family Medical History: Hyperlipidemia, Hypertension Additional Family Medical History / Comment(s): . General Exam Limitations: no limitations General appearance: alert, in no apparent distress Head exam: Present: atraumatic, normocephalic Eye exam: Present: normal appearance. Absent: scleral icterus, conjunctival in jection Respiratory exam: Present: normal lung sounds bilaterally. Absent: respiratory distress, wheezes, rales, rhonchi, stridor, accessory muscle use Cardiovascular Exam: Present: regular rate, normal rhythm, normal heart sounds. Absent: systolic murmur, diastolic murmur, rubs, gallop GI/Abdominal exam: Present: soft. Absent: distended, tenderness, guarding, rebound, rigid, mass Extremities exam: Present: normal inspection, normal capillary refill. Absent: pedal edema, calf tenderness Back exam: Present: normal inspection Neurological exam: Present: alert Psychiatric exam: Absent: homicidal ideation, suicidal ideation Skin exam: Present: warm, dry, intact, normal color. Absent: rash Course Vital Signs 10/16/24 10/16/24 21:19 22:17 Temperature 98 F Pulse Rate 105 H Respiratory 18 16 Rate Blood Pressure 123/88 O2 Sat by Pulse 99 Oximetry Medical Decision Making - Medical Decision Making Patient at this time does not have indication for inpatient psychiatric admission. Discussed follow-up with substance abuse counseling. Provided with resource list including day programs and inpatient rehabilitation. The patient at this point stable for discharge, discussed appropriate further care and follow-up as well as return parameters. Was pt. sent in by a medical professional or institution (, JAS, WAD COMPRESSOR OPERATOR ADJUSTER, urgent care, hospital, or retirement...) When possible be specific @ -[No] Did you speak to anyone other than the patient for history (EMS, parent, family, police, friend...)? What history was obtained from this source @ -[No] Did you review nursing and triage notes (agree or disagree)? Why? @ -[I reviewed and agree with nursing and triage notes] Were old charts reviewed (outside hosp., previous admission, EMS record, old EKG, old radiological studies, urgent care reports/EKG's, retirement records)? Report findings @ -[No old charts were reviewed] Differential Diagnosis (chest pain, altered mental status, abdominal pain women, abdominal pain men, vaginal bleeding, weakness, fever, dyspnea, syncope, headache, dizziness, GI bleed, back pain, seizure, CVA, palpatations, mental health, musculoskeletal)? @ -[Differential Mental Health Depression, anxiety, bipolar, psychosis, schizophrenia, borderline personality, situational depression, adjustment disorder, behavioral disorder, brain tumor, malingering, substance abuse, encephalopathy, medication reaction, dementia, hypothyroidism, degenerative neurologic disorder, lupus.... This is not meant to be all-inclusive list EKG interpreted by me (3pts min.). @ -[As above] X-rays interpreted by me (1pt min.). @ -[None done] CT interpreted by me (1pt min.). @ -[None done] U/S interpreted by me (1pt. min.). @ -[None done] What testing was considered but not performed or refused? (CT, X-rays, U/S, labs)? Why? @ -[None] What meds were considered but not given or refused? Why? @ -[None] Did you discuss the management of the patient with other professionals (professionals i.e. , PA, WAD COMPRESSOR OPERATOR ADJUSTER, lab, RT, psych nurse, social services counselor, neurological surgeon, teacher, community service officer coordinator, spring encaser)? Give summary @ -[No] Was smoking cessation discussed for >3mins.? @ -[No] Was critical care preformed (if so, how long)? @ -[No] Were there social determinants of health that impacted care today? How? (Homelessness, low income, unemployed, alcoholism, drug addiction, transportation, low edu. Level, literacy, decrease access to med. care, fdc, rehab)? @ -[No] Was there de-escalation of care discussed even if they declined (Discuss DNR or withdrawal of care, Hospice)? DNR status @ -[No] What co-morbidities impacted this encounter? (DM, HTN, Smoking, COPD, CAD, Cancer, CVA, ARF, Chemo, Hep., AIDS, mental health diagnosis, sleep apnea, morbid obesity)? @ -[Diabetes Was patient admitted / discharged? Hospital course, mention meds given and route, prescriptions, significant lab abnormalities, going to OR and other pertinent info. @ -[As above Undiagnosed new problem with uncertain prognosis? @ -[No] Drug Therapy requiring intensive monitoring for toxicity (Heparin, Nitro, Insuli n, Cardizem)? @ -[No] Were any procedures done? @ -[No] Diagnosis/symptom? @ -[Benzodiazepine abuse/withdrawal Acute, or Chronic, or Acute on Chronic? @ -[Acute Uncomplicated (without systemic symptoms) or Complicated (systemic symptoms)? @ -[Uncomplicated Side effects of treatment? @ -[No] Exacerbation, Progression, or Severe Exacerbation? @ -[No] Poses a threat to life or bodily function? How? (Chest pain, [place], [place], pneumonia, PE, COPD, DKA, ARF, appy, cholecystitis, CVA, Diverticulitis, Homicidal, Suicidal, threat to staff... and all critical care pts) @ -[No] All treatments are based on ideal body weight as in ED triage - Lab Data Lab Results 10/16/24 Range/Units 21:47 POC Glucose (mg/dL) 165 H (70-110) mg/dL POC Glu Agricultural Real Estate Agent ID Caity Clemons Disposition Clinical Impression: Xanax use disorder, mild Disposition: HOME SELF-CARE Condition: Good Instructions (If sedation given, give patient instructions): Benzodiazepine Abuse (ED) Is patient prescribed a controlled substance at d/c from ED?: No Referrals: Brown Valenzuela MD [Primary Care Provider] - 1-2 days
[2024-10-16 22:18] VITALS: RESP 16
== END 2024-10-16 22:18 | disposition home or self-care (01) ==
LOC: EC 21:18
DX: F13.10 Sedative, hypnotic or anxiolytic abuse, uncomplicated (principal); F17.200 Nicotine dependence, unspecified, uncomplicated
CPT/HCPCS: 36415; 82075; 99283

== ENCOUNTER 2024-11-13 11:56 | Observation (INO) | payer OTHER ==
[2024-11-13 12:26] LABS: Glucose,Whole Blood 327 mg/dL (70-110)
--- NOTE | 2024-11-13 12:27 | ED ---
General Adult HPI - General Chief complaint: Recheck/Abnormal Lab/Rx Stated complaint: Diabetic issue Time Seen by Provider: 11/13/24 12:11 Source: patient, police, RN notes reviewed, old records reviewed Mode of arrival: wheelchair Limitations: no limitations - History of Present Illness Initial comments: 29-year-old male presenting for evaluation of nausea vomiting. Patient has history of type 1 diabetes. He has issues with recurrent diabetic ketoacidosis and gastroparesis. Patient states symptoms worsened just prior to arrival. [facility]. He states he has been on his insulin at the [facility]. - Related Data Home Medications Medication Instructions Recorded Confirmed INSULIN LISPRO (humaLOG) [humaLOG] 7 units SQ AC-TID 06/20/24 10/08/24 Insulin Glargine (Lantus) [Lantus 25 unit SQ DAILY 06/20/24 10/08/24 Vial] Previous Rx's Medication Instructions Recorded Cyclobenzaprine [Flexeril] 10 mg PO TID PRN #15 tab 10/15/24 Ketorolac [Toradol] 10 mg PO Q6HR PRN #15 tab 10/15/24 Allergies Allergy/AdvReac Type Severity Reaction Status Date / Time No Known Allergies Allergy Verified 11/13/24 12:10 Review of Systems ROS Statement: Those systems with pertinent positive or pertinent negative responses have been documented in the HPI. ROS Other: All systems not noted in ROS Statement are negative. Past Medical History Past Medical History: Asthma, Diabetes Mellitus, Neurologic Disorder, Skin Diso rder Additional Past Medical History / Comment(s): IDDM type I, neuropathy bilateral feet, DKA, eczema,gastritis, anxiety, depression History of Any Multi-Drug Resistant Organisms: None Reported Past Surgical History: Adenoidectomy Additional Past Surgical History / Comment(s): gastritis Past Anesthesia/Blood Transfusion Reactions: No Reported Reaction Past Psychological History: Anxiety, Depression Smoking Status: Current every day smoker Past Alcohol Use History: None Reported Past Drug Use History: Marijuana, Prescription Drug Abuse - Past Family History Mother Family Medical History: CVA/TIA Additional Family Medical History / Comment(s): TIA Father Family Medical History: Hyperlipidemia, Hypertension Additional Family Medical History / Comment(s): . General Exam Limitations: no limitations General appearance: alert, in no apparent distress Head exam: Present: atraumatic, normocephalic Eye exam: Present: normal appearance, PERRL ENT exam: Present: mucous membranes dry Neck exam: Present: normal inspection. Absent: tenderness, meningismus Respiratory exam: Present: normal lung sounds bilaterally. Absent: respiratory distress, wheezes Cardiovascular Exam: Present: regular rate, normal rhythm GI/Abdominal exam: Present: soft. Absent: distended, tenderness Extremities exam: Present: normal inspection, normal capillary refill Neurological exam: Present: alert. Absent: motor sensory deficit Course Vital Signs 11/13/24 12:08 Temperature 98.0 F Pulse Rate 104 H Respiratory 16 Rate Blood Pressure 132/92 O2 Sat by Pulse 100 Oximetry Medical Decision Making - Medical Decision Making Was pt. sent in by a medical professional or institution (JAS Lucero, CONFECTIONERY DROPS MACHINE OPERATOR, urgent care, hospital, or jail...) When possible be specific @ -No Did you speak to anyone other than the patient for history (EMS, parent, family, police, friend...)? What history was obtained from this source @ -No Did you review nursing and triage notes (agree or disagree)? Why? @ -I reviewed and agree with nursing and triage notes Were old charts reviewed (outside hosp., previous admission, EMS record, old EKG, old radiological studies, urgent care reports/EKG's, jail records)? Report findings @ -No old charts were reviewed Differential Weakness: Hypoglycemia, shock, sepsis, hyponatremia, anemia, infection, NV, ETOH, adverse medicine reaction, overdose, stroke, this is not meant to be an all-inclusive list. EKG interpreted by me (3pts min.). @ -Sinus rhythm rate of 86, IL interval 152, QRS duration 97, QTc 409 X-rays interpreted by me (1pt min.). @ -None done CT interpreted by me (1pt min.). @ -None done U/S interpreted by me (1pt. min.). @ -None done What testing was considered but not performed or refused? (CT, X-rays, U/S, labs)? Why? @ -None What meds were considered but not given or refused? Why? @ -None Did you discuss the management of the patient with other professionals (professionals i.e. JAS Lucero, CONFECTIONERY DROPS MACHINE OPERATOR, lab, RT, psych nurse, administrator social welfare, back shoe cutter, teacher, licensed loan officer, shoe caser)? Give summary @ -Dr. Valenzuela Was smoking cessation discussed for >3mins.? @ -No Was critical care preformed (if so, how long)? @ -No Were there social determinants of health that impacted care today? How? (Homelessness, low income, unemployed, alcoholism, drug addiction, transportation, low edu. Level, literacy, decrease access to med. care, [facility], rehab)? @ -No Was there de-escalation of care discussed even if they declined (Discuss DNR or withdrawal of care, Hospice)? DNR status @ -No What co-morbidities impacted this encounter? (DM, HTN, Smoking, COPD, CAD, Cancer, CVA, ARF, Chemo, Hep., AIDS, mental health diagnosis, sleep apnea, morbid obesity)? @ -Type I diabetic history of recurrent nausea vomiting and gastroparesis Was patient admitted / discharged? Hospital course, mention meds given and route, prescriptions, significant lab abnormalities, going to OR and other pertinent info. @29-year-old male presenting with nausea vomiting. No significant abdominal pain. Vital signs are stable. History of DKA. Laboratory studies including CBC, CMP, urinalysis and venous blood gas are obtained. No current signs of diabetic ketoacidosis. Patient does remain symptomatic while in the emergency department and will require IV fluids and antiemetics. He is placed in observation for treatment of intractable nausea vomiting history of gastroparesis. Undiagnosed new problem with uncertain prognosis? @ -No Drug Therapy requiring intensive monitoring for toxicity (Heparin, Nitro, Insulin, Cardizem)? @ -No Were any procedures done? @ -No Diagnosis/symptom? @ -Intractable nausea vomiting Acute, or Chronic, or Acute on Chronic? @Acute on chronic Uncomplicated (without systemic symptoms) or Complicated (systemic symptoms)? @ -Default Side effects of treatment? @ -No Exacerbation, Progression, or Severe Exacerbation? @ -No Poses a threat to life or bodily function? How? (Chest pain, USA, NV, pneumonia, PE, COPD, DKA, ARF, appy, cholecystitis, CVA, Diverticulitis, Homicidal, Suicidal, threat to staff... and all critical care pts) @Yes, DKA - Lab Data Result diagrams: 11/13/24 12:40 11/13/24 12:40 Lab Results 11/13/24 11/13/24 11/13/24 Range/Units 12:25 12:40 12:40 WBC 11.08 H (4.50-10.00) 10*3/uL RBC 4.67 (4.40-5.60) 10*6/uL Hgb 13.7 (13.0-17.0) g/dL Hct 41.0 (39.6-50.0) % MCV 87.8 (80.0-97.0) fL MCH 29.3 (27.0-32.0) pg MCHC 33.4 (32.0-37.0) g/dL Plt Count 330 (140-440) 10*3/uL MPV 8.9 L (9.5-12.2) fL Immature Gran % (Auto) 0.3 % Neutrophils % 73.8 % Lymphocytes % 17.9 % Monocytes % 6.6 % Eosinophils % 0.9 % Basophils % 0.5 % Immature Gran # 0.03 (0.00-0.04) 10*3/uL Neutrophils # 8.19 H (1.80-7.70) 10*3/uL Lymphocytes # 1.98 (0.90-5.00) 10*3/uL Monocytes # 0.73 (0.20-1.00) 10*3/uL Eosinophils # 0.10 (0.04-0.35) 10*3/uL Basophils # 0.05 (0.00-0.10) 10*3/uL VBG pH (7.31-7.41) VBG pCO2 (37-51) mmHg VBG HCO3 (24-28) mmol/L Sodium (137-145) mmol/L Potassium (3.5-5.1) mmol/L Chloride (98-107) mmol/L Carbon Dioxide (22-30) mmol/L Anion Gap mmol/L BUN (9-20) mg/dL Creatinine (0.66-1.25) mg/dL Est GFR (CKD-EPI)AfAm (>60 ml/min/1.73 sqM) Est GFR (CKD-EPI)NonAf (>60 ml/min/1.73 sqM) Glucose (74-99) mg/dL POC Glucose (mg/dL) 327 H (70-110) mg/dL POC Glu Power Mule Operator ID Huy Fong Plasma Lactic Acid Len (0.7-2.0) mmol/L Calcium (8.4-10.2) mg/dL Magnesium (1.6-2.3) mg/dL Total Bilirubin (0.2-1.3) mg/dL AST (17-59) U/L ALT (4-49) U/L Alkaline Phosphatase (38-126) U/L Total Protein (6.3-8.2) g/dL Albumin (3.5-5.0) g/dL Urine Color Colorless Urine Appearance Clear (Clear) Urine pH 8.5 H (5.0-8.0) Ur Specific [place] 1.022 (1.001-1.035) Urine Protein Negative (Negative) Urine Glucose (UA) 4+ H (Negative) Urine Ketones Negative (Negative) Urine Blood Negative (Negative) Urine Nitrite Negative (Negative) Urine Bilirubin Negative (Negative) Urine Urobilinogen <2.0 (<2.0) mg/dL Ur Leukocyte Esterase Negative (Negative) 11/13/24 11/13/24 11/13/24 Range/Units 12:40 12:40 12:40 WBC (4.50-10.00) 10*3/uL RBC (4.40-5.60) 10*6/uL Hgb (13.0-17.0) g/dL Hct (39.6-50.0) % MCV (80.0-97.0) fL MCH (27.0-32.0) pg MCHC (32.0-37.0) g/dL Plt Count (140-440) 10*3/uL MPV (9.5-12.2) fL Immature Gran % (Auto) % Neutrophils % % Lymphocytes % % Monocytes % % Eosinophils % % Basophils % % Immature Gran # (0.00-0.04) 10*3/uL Neutrophils # (1.80-7.70) 10*3/uL Lymphocytes # (0.90-5.00) 10*3/uL Monocytes # (0.20-1.00) 10*3/uL Eosinophils # (0.04-0.35) 10*3/uL Basophils # (0.00-0.10) 10*3/uL VBG pH 7.51 H (7.31-7.41) VBG pCO2 37 (37-51) mmHg VBG HCO3 30 H (24-28) mmol/L Sodium 138 (137-145) mmol/L Potassium 4.8 (3.5-5.1) mmol/L Chloride 98 (98-107) mmol/L Carbon Dioxide 28 (22-30) mmol/L Anion Gap 12 mmol/L BUN 16 (9-20) mg/dL Creatinine 0.60 L (0.66-1.25) mg/dL Est GFR (CKD-EPI)AfAm >90 (>60 ml/min/1.73 sqM) Est GFR (CKD-EPI)NonAf >90 (>60 ml/min/1.73 sqM) Glucose 327 H (74-99) mg/dL POC Glucose (mg/dL) (70-110) mg/dL POC Glu Power Mule Operator ID Plasma Lactic Acid Len 2.5 H* (0.7-2.0) mmol/L Calcium 9.9 (8.4-10.2) mg/dL Magnesium 1.9 (1.6-2.3) mg/dL Total Bilirubin 0.5 (0.2-1.3) mg/dL AST 40 (17-59) U/L ALT 76 H (4-49) U/L Alkaline Phosphatase 78 (38-126) U/L Total Protein 7.6 (6.3-8.2) g/dL Albumin 4.7 (3.5-5.0) g/dL Urine Color Urine Appearance (Clear) Urine pH (5.0-8.0) Ur Specific [place] (1.001-1.035) Urine Protein (Negative) Urine Glucose (UA) (Negative) Urine Ketones (Negative) Urine Blood (Negative) Urine Nitrite (Negative) Urine Bilirubin (Negative) Urine Urobilinogen (<2.0) mg/dL Ur Leukocyte Esterase (Negative) Disposition Clinical Impression: Acute vomiting, Intractable nausea and vomiting Disposition: ADMITTED IP TO THIS HOSP Condition: Stable Is patient prescribed a controlled substance at d/c from ED?: No Referrals: Brown Valenzuela MD [Primary Care Provider] - 1-2 days Time of Disposition: 13:56
[2024-11-13] MEDS: SODIUM CHLORIDE 0.9% 1,000 ML IV ONE (12:36)
[2024-11-13] MEDS: FAMOTIDINE 20 MG/2 ML VIAL IV STA (12:43)
[2024-11-13] MEDS: ONDANSETRON 4 MG/2 ML VIAL IVP STA (12:43)
[2024-11-13 12:53] LABS: Basophils # (A) 0.05 10*3/uL (0.00-0.10); Basophils % (A) 0.5 %; Eosinophils % (A) 0.9 %; HGB 13.7 g/dL (13.0-17.0); Lymphocytes # (A) 1.98 10*3/uL (0.90-5.00); Lymphocytes % (A) 17.9 %; MCH 29.3 pg (27.0-32.0); MCHC 33.4 g/dL (32.0-37.0); MCV 87.8 fL (80.0-97.0); Mean Platelet Volume 8.9 fL (9.5-12.2); Monocytes # (A) 0.73 10*3/uL (0.20-1.00); Monocytes % (A) 6.6 %; Neutrophils # (A) 8.19 10*3/uL (1.80-7.70); Neutrophils % (A) 73.8 %; Platelet Count 330 10*3/uL (140-440); RBC 4.67 10*6/uL (4.40-5.60); WBC 11.08 10*3/uL (4.50-10.00)
[2024-11-13 12:54] LABS: VBG PH 7.51 (7.31-7.41)
[2024-11-13 12:55] LABS: Appearance,Urine Clear (Clear); Bilirubin,Urine Negative (Negative); Blood,Urine Negative (Negative); Color,Urine Colorless; Glucose,Urine (UA) 4+ (Negative); Ketones,Urine Negative (Negative); Leukocyte Esterase,Urine Negative (Negative); Nitrite,Urine Negative (Negative); PH, Urine 8.5 (5.0-8.0); Protein,Urine Negative (Negative); Specific Gravity,Urine 1.022 (1.001-1.035); Urobilinogen,Urine <2.0 mg/dL (<2.0)
[2024-11-13 13:14] LABS: ALT 76 U/L (4-49); African American GFR (CKD) >90 (>60 ml/min/1.73 sqM); Albumin 4.7 g/dL (3.5-5.0); Anion Gap 12 mmol/L; Blood Urea Nitrogen 16 mg/dL (9-20); Calcium 9.9 mg/dL (8.4-10.2); Carbon Dioxide 28 mmol/L (22-30); Chloride 98 mmol/L (98-107); Glucose 327 mg/dL (74-99); Non-African American GFR(CKD) >90 (>60 ml/min/1.73 sqM); Sodium 138 mmol/L (137-145); Total Bilirubin 0.5 mg/dL (0.2-1.3); Total Protein 7.6 g/dL (6.3-8.2)
[2024-11-13 13:25] LABS: AST 40 U/L (17-59); Alkaline Phosphatase 78 U/L (38-126); Potassium 4.8 mmol/L (3.5-5.1)
[2024-11-13 13:26] LABS: Magnesium 1.9 mg/dL (1.6-2.3)
[2024-11-13] MEDS ORDERED: ACETAMINOPHEN TAB 325 MG TAB PO PRN (13:53)
[2024-11-13] MEDS ORDERED: NALOXONE 0.4 MG/ML 1 ML VIAL IV PRN (13:53)
[2024-11-13] MEDS: SODIUM CHLORIDE 0.9% 1,000 ML IV SCH (14:17)
[2024-11-13] MEDS: INSULIN REGULAR 100 UNIT/ML VIAL (IV) SQ SCH (16:39)
[2024-11-13 16:44] LABS: Glucose,Whole Blood 215 mg/dL (70-110)
[2024-11-13 17:26] LABS: Glucose,Whole Blood 205 mg/dL (70-110)
[2024-11-13] MEDS ORDERED: INSULIN LISPRO (HumaLOG) 100 UNIT/ML 10 mL VL SQ SCH (17:30)
[2024-11-13] MEDS: ONDANSETRON 4 MG/2 ML VIAL IVP PRN (17:52)
[2024-11-13 20:27] LABS: Glucose,Whole Blood 139 mg/dL (70-110)
[2024-11-13] MEDS ORDERED: DEXTROSE 50% SYRINGE 50 ML IVP PRN ×2 (21:56)
--- NOTE | 2024-11-13 22:30 | HP ---
HISTORY AND PHYSICAL CHIEF COMPLAINT: Intractable nausea and vomiting. HISTORY OF PRESENT ILLNESS: This is another admission for this 29-year-old white male, uncontrolled type 1 insulin- dependent diabetic. He was brought in by the police. Apparently, he has been in long term for the last month and a half. In the emergency room, his blood sugar was 327. He has had a history of gastroparesis and this is the suspected reason for his vomiting. REVIEW OF SYSTEMS: He has had no hematemesis, fever, chills, melena, hematochezia, etc. Past medical history, family history, personal and social histories are otherwise unchanged. PHYSICAL EXAMINATION: VITAL SIGNS: Blood pressure is 130/96 with a pulse of 104. GENERAL: He appeared to be pale and slightly dehydrated. HEAD, EARS, EYES, NOSE, MOUTH AND THROAT: Otherwise normal. CHEST: Clear. CARDIAC: Normal. ABDOMEN: Soft, nontender. EXTREMITIES: Normal. NEUROLOGICAL: Intact. IMPRESSION: 1. Intractable nausea and vomiting. 2. Gastroparesis. 3. Uncontrolled type 1 insulin-dependent diabetes mellitus. 4. Noncompliant patient. PLAN: 1. Bed rest. 2. IV fluids. 3. Diet as tolerated. MMODL / IJN: [id number] /
[2024-11-14] MEDS: METOCLOPRAMIDE 5 MG/ML 2 ML VIAL IVP SCH (01:27)
[2024-11-14 06:15] LABS: Glucose,Whole Blood 172 mg/dL (70-110)
[2024-11-14] MEDS ORDERED: INSULIN GLARGINE (LANTUS) 100 UNIT/ML SYR SQ SCH (07:00)
[2024-11-14] MEDS: PANTOPRAZOLE 40 MG/10 ML VIAL IV SCH (08:50)
[2024-11-14] MEDS: INSULIN GLARGINE (LANTUS) 100 UNIT/ML SYR SQ SCH (09:18)
[2024-11-14 12:19] LABS: Glucose,Whole Blood 305 mg/dL (70-110)
[2024-11-14 17:20] LABS: Glucose,Whole Blood 309 mg/dL (70-110)
[2024-11-14 20:27] LABS: Glucose,Whole Blood 464 mg/dL (70-110)
[2024-11-14] MEDS: INSULIN LISPRO (HumaLOG) 100 UNIT/ML 10 mL VL SQ ONE (21:51)
[2024-11-15 06:04] LABS: Glucose,Whole Blood 294 mg/dL (70-110)
--- NOTE | 2024-11-15 09:24 | PN ---
PROGRESS NOTE CHIEF COMPLAINT: DKA and intractable nausea and vomiting. HISTORY OF PRESENT ILLNESS: This gentleman is doing better. Vomiting seems to stop. Blood sugars are around 200 to 300. PHYSICAL EXAMINATION: ABDOMEN: Flat, soft, nontender. CHEST: Clear. IMPRESSION: 1. Intractable nausea and vomiting. 2. Gastroparesis. 3. Dehydration. 4. Uncontrolled type 1 insulin-dependent diabetes mellitus. 5. Noncompliant patient. PLAN: Probably [facility] to the [facility] tomorrow. MMODL / IJN: [id number] /
[2024-11-15 13:02] LABS: Glucose,Whole Blood 419 mg/dL (70-110)
[2024-11-15 13:18] VITALS: BP 108/73; PULSE 86; RESP 18; TEMP 98.3
[2024-11-15] MEDS: INSULIN REGULAR 100 UNIT/ML VIAL (IM/SQ) SQ STA (14:33)
[2024-11-15 16:05] VITALS: BMI 21.9
[2024-11-15 16:16] LABS: Glucose,Whole Blood 316 mg/dL (70-110)
--- NOTE | 2024-11-16 10:25 | DS ---
DISCHARGE SUMMARY CHIEF COMPLAINT: Intractable nausea and vomiting. HISTORY OF PRESENT ILLNESS AND PHYSICAL EXAMINATION: Details of this man's history and physical can be found in the initial workup. LABORATORY STUDIES: While he was in the hospital, he had laboratory studies, details of which can be found in the laboratory section of his chart. COURSE IN THE HOSPITAL: After admission, he was placed on bedrest. He started on intravenous fluids and antiemetics. His blood sugars were also managed. His vomiting stopped and his diet was advanced and he did well. It was felt that he could be returned to the half-way on the . FINAL DIAGNOSES: 1. Intractable nausea and vomiting. 2. Gastroparesis. 3. Dehydration. 4. Uncontrolled type 1 insulin-dependent diabetes mellitus. OPERATIONS: None. CONSULTATION: None. GRACE / ALDEN: [id number] /
[2024-11-16 11:11] LABS: Glucose,Whole Blood 305 mg/dL (70-110)
== END 2024-11-15 16:57 ==
LOC: EC 11:56 → 6NMEDSUR 13:53
PROVIDERS: ADMIT Family Medicine; ATTEND Family Medicine
DX: E10.43 Type 1 diabetes mellitus with diabetic autonomic (poly)neuropathy (principal); K31.84 Gastroparesis; E10.65 Type 1 diabetes mellitus with hyperglycemia; E86.0 Dehydration; Z79.4 Long term (current) use of insulin; F17.200 Nicotine dependence, unspecified, uncomplicated; Z91.199 Patient's noncompliance with other medical treatment and regimen due to unspecified reason
CPT/HCPCS: 96361 ×2; 96375 ×2; 96376; 96374; 99285; 36415; 93005; 80053; 82803; 83605; 83735; 85025; 81003; 83036; G0378 ×3; J2405; J2470; J1308